=== PATIENT | female | born 1955 | race Caucasian/White ===

== ENCOUNTER 2023-04-10 19:57 | Inpatient (IN) | payer OTHER, SELFPAY ==
[2023-04-10] VITALS (19 sets, daily range): BP systolic 113–141; BP diastolic 59–88; PULSE 73–106; RESP 15–31; TEMP 36.2–36.8; O2SAT 80–97; BMI 40.5; BMI 37.4
--- NOTE | 2023-04-10 20:36 | ECG_ITS ---
[facility] Test Date: 2023-04-10 Pat Name: JHONATAN MONTOYA Department: Room: - Gender: Female Ophthalmic Photographer: : [id number] Requested By: SHAIKH LUCITA Order Number: [id number] Reading MD: KANDY MEDINA Measurements Intervals [place] Rate: 91 P: 74 [place]: 128 QRS: -50 QRSD: 104 T: 84 QT: 374 QTc: 423 Interpretive Statements 1100 Sinus rhythm [address] depression 7200 Abnormal left axis deviation 9150 abnormal ECG No previous ECG available for comparison Electronically Signed On 04-11-2023 5:43:07 EDT by KANDY MEDINA
[2023-04-10 21:07] LABS: ABG PCO2 33.8 mmHg (35.0-45.0); Base Excess ABG 1.7 mmol/L (-2.0-2.0); HCO3 ABG 25.2 mmol/L (22.0-26.0); Oxygen Saturation ABG 98.5 %; pH ABG 7.481 (7.350-7.450)
[2023-04-10 21:07] LABS: Basophils Absolute Auto 0.1 10^3/uL (0.0-0.1); Basophils Percent Auto 0.6 % (0.2-2.0); Hematocrit 49.2 % (36.0-48.0); Hemoglobin 16.8 g/dL (12.0-16.0); Immature Granulocytes Abs Auto 0.45 10^3/uL (0.00-0.03); Immature Granulocytes Pct Auto 3.9 % (0.0-0.5); Lymphocytes Absolute Auto 0.8 10^3/uL (1.2-3.8); Lymphocytes Percent Auto 7.2 % (20.5-60.0); Mean Corpuscular HGB Conc 34.1 g/dL (29.9-35.2); Mean Corpuscular Volume 87.9 fL (81.0-99.0); Mean Platelet Volume 8.8 fL (9.5-13.5); Monocytes Absolute Auto 0.7 10^3/uL (0.3-0.8); Monocytes Percent Auto 6.1 % (1.7-12.0); Neutrophils Absolute Auto 9.5 10^3/uL (1.4-6.5); Neutrophils Percent Auto 82.2 % (43.0-75.0); Platelet Count 457 10^3/uL (150-450); White Blood Count 11.6 10^3/uL (4.0-11.0)
[2023-04-10 21:08] LABS: Allen Test POSITIVE (POSITIVE); Fractionated Inspired Oxygen 80 %; Liters per Minute 40; O2 Mode VAPOTHERM; Puncture Site R. RADIAL
[2023-04-10] MEDS: IPRATROPIUM/ALBUTEROL SULFATE 3 ML AMPUL.NEB IH (21:15)
[2023-04-10] MEDS: METHYLPREDNISOLONE SOD SUCC PF 125 MG/2 ML VIAL IVP (21:18)
--- NOTE | 2023-04-10 21:29 | ED_ITS ---
HPI - General Adult General Chief complaint: Shortness of Breath/Dyspnea Stated complaint: SHORTNESS OF BREATH - PT IS COVID + Time Seen by Provider: 04/10/23 20:36 Source: patient Mode of arrival: walk-in History of Present Illness HPI narrative: cc -shortness of breath Patient with COPD who sees Dr Marianne zarate present with 8 days of cough, chest congestion and shortness of breath. She tested positive for Covid 5 days ago. She developed some chest pressure this afternoon. No fever at home. No GI or symptoms. She told me that she is vaccinated and boosted against Covid but has never contracted it before. Her PCP is Dr Ohara. Related Data Home Medications Medication Instructions Recorded Confirmed albuterol sulfate 90 mcg/actuation inhalation 04/10/23 aerosol inhaler alendronate 35 mg tablet mg PO 04/10/23 amlodipine 5 mg tablet mg 04/10/23 baclofen 5 mg tablet mg 04/10/23 benzonatate 100 mg capsule mg PO 04/10/23 cholecalciferol (vitamin D3) 25 04/10/23 mcg (1,000 unit) tablet fluticasone fur. 200 mcg-umeclid inhalation 04/10/23 62.5 mcg-vilant 25 mcg inhalat.powder (Trelegy Ellipta) gabapentin 300 mg capsule mg 04/10/23 hydrochlorothiazide 25 mg tablet mg 04/10/23 levocetirizine 5 mg tablet mg 04/10/23 magnesium oxide 400 mg (241.3 mg mg 04/10/23 magnesium) tablet montelukast 10 mg tablet mg 04/10/23 omeprazole 20 mg capsule,delayed mg 04/10/23 release oxybutynin chloride 5 mg mg PO 04/10/23 tablet,extended release 24 hr paroxetine HCl 20 mg tablet mg PO 04/10/23 potassium chloride 20 mEq meq PO 04/10/23 tablet,extended release solifenacin 5 mg tablet mg PO 04/10/23 trazodone 50 mg tablet mg 04/10/23 Allergies Allergy/AdvReac Type Severity Reaction Status Date / Time No Known Drug Allergies Allergy Verified 04/10/23 20:12 [facility] Medical History (Updated 04/10/23 @ 21:47 by Chau Burk) Social History Smoking status: Never smoker Exam Narrative Exam Narrative: Nurses notes and vital signs reviewed and patient is not hypoxic. afebrile General: Well-appearing and in no apparent distress. Skin: Warm, dry, no pallor noted. Head: Normocephalic, atraumatic. Neck: Supple, non-tender. Eye: Pupils are equal, round and EOMI. No scleral icterus. Ears, Nose, Mouth, and Throat: Oral mucosa is moist Cardiovascular: Regular Rate and Rhythm without murmur, gallop or rub. Respiratory: Accessory muscle use, sitting up, exertional dyspnea, mild respiratory distress. Lungs with rales and rhonchi throughout and apical expiratory wheezes. Chest Wall: no tenderness, crepitus or subcutaneous emphysema Musculoskeletal: normal ROM, no calf or popliteal tenderness, no lower extremity edema/swelling GI: Abdomen is soft, non-distended. Normal bowel sounds. No tenderness to palpation. No rebound, guarding, or rigidity noted. Neurological: A&O x4. No cranial nerve dysfunction observed. No truncal ataxia. Moves all extremities. Sensation intact. Psychiatric: Cooperative and interactive. Normal mood and affect. Constitutional Vital Signs - 24 hr 04/10/23 20:03 04/10/23 20:23 04/10/23 20:05 Temperature 98.2 F Pulse Rate Pulse Rate [Monitor Left] 90 Respiratory Rate 24 Blood Pressure 137/88 H Blood Pressure [Left Arm] 137/88 H Pulse Oximetry 89 L 89 L Oxygen Delivery Method Room Air Room Air 04/10/23 20:29 04/10/23 20:30 04/10/23 20:40 Temperature Pulse Rate Pulse Rate [Monitor Left] Respiratory Rate Blood Pressure Blood Pressure [Left Arm] Pulse Oximetry 80 L 81 L 89 L Oxygen Delivery Method 04/10/23 20:50 04/10/23 21:00 04/10/23 21:04 Temperature Pulse Rate 106 H 97 H Pulse Rate [Monitor Left] Respiratory Rate 23 Blood Pressure 127/77 H Blood Pressure [Left Arm] Pulse Oximetry 92 L 97 95 Oxygen Delivery Method 04/10/23 21:04 04/10/23 21:04 04/10/23 21:04 Temperature Pulse Rate 99 H 95 H 91 H Pulse Rate [Monitor Left] Respiratory Rate 31 H 27 H 29 H Blood Pressure 127/77 H 127/77 H Blood Pressure [Left Arm] Pulse Oximetry 93 L 96 90 L Oxygen Delivery Method Course Vital Signs Vital signs: Vital Signs Temperature 98.2 F 04/10/23 20:03 Pulse Rate 90 04/10/23 20:03 Respiratory Rate 24 04/10/23 20:03 Blood Pressure 137/88 H 04/10/23 20:03 Pulse Oximetry 89 L 04/10/23 20:03 Oxygen Delivery Method Room Air 04/10/23 20:03 Temperature 98.2 F 04/10/23 20:03 Pulse Rate 91 H 04/10/23 21:04 Respiratory Rate 29 H 04/10/23 21:04 Blood Pressure 127/77 H 04/10/23 21:04 Pulse Oximetry 90 L 04/10/23 21:04 Oxygen Delivery Method Room Air 04/10/23 20:23 Medical Decision Making MDM Narrative Medical decision making narrative: Patient was placed on nuclear monitoring technician and EKG obtained. Blood drawn and sent for evaluation. I asked respiratory therapy to place patient on Vapotherm. Chest x- ray was obtained. Blood work was relatively unremarkable. EKG did not show any ST elevation or deep ischemic changes requiring immediate cardiac intervention. Chest x-rays shows some atelectasis without any focal infiltrate. ABG does not reveal acute CO2 retention. Due to the patient's increased oxygen requirements I recommended the patient be admitted for further treatment. I spoke with the on-call tell hospitalist, Dr. Rueda, who agreed to admit this patient. The patient's primary care provider is Dr. Ohara but Dr. Zepeda is on-call and therefore will be the admitting physician. Patient informed of results and need for admission and is agreeable. Lab Data Lab results reviewed: Yes I reviewed the patient's lab results Labs: Lab Results 04/10/23 04/10/23 Range/Units 20:45 21:00 WBC 11.6 H (4.0-11.0) 10^3/uL RBC 5.60 H (4.20-5.40) 10^6/uL Hgb 16.8 H (12.0-16.0) g/dL Hct 49.2 H (36.0-48.0) % MCV 87.9 (81.0-99.0) fL MCH 30.0 (26.7-34.0) pg MCHC 34.1 (29.9-35.2) g/dL RDW 12.0 (11.0-15.0) % Plt Count 457 H (150-450) 10^3/uL MPV 8.8 L (9.5-13.5) fL Neut % (Auto) 82.2 H (43.0-75.0) % Lymph % (Auto) 7.2 L (20.5-60.0) % Linn % (Auto) 6.1 (1.7-12.0) % Eos % (Auto) 0.0 L (0.9-7.0) % Baso % (Auto) 0.6 (0.2-2.0) % Neut # (Auto) 9.5 H (1.4-6.5) 10^3/uL Lymph # (Auto) 0.8 L (1.2-3.8) 10^3/uL Linn # (Auto) 0.7 (0.3-0.8) 10^3/uL Eos # (Auto) 0.0 (0.0-0.7) 10^3/uL Baso # (Auto) 0.1 (0.0-0.1) 10^3/uL Abs Immat Gran (auto) 0.45 H (0.00-0.03) 10^3/uL Imm/Tot Granulo (auto) 3.9 H (0.0-0.5) % Puncture Site R. radial ABG pH 7.481 H (7.350-7.450) ABG pCO2 33.8 L (35.0-45.0) mmHg ABG pO2 106.0 H (80.0-100.0) mmHg ABG HCO3 25.2 (22.0-26.0) mmol/L ABG O2 Saturation 98.5 % ABG Base Excess 1.7 (-2.0-2.0) mmol/L Hardy Test Positive (POSITIVE) O2 Liters/Min 40 FiO2 80 % Sodium 136 (136-145) mmol/L Potassium 3.7 (3.5-5.1) mmol/L Chloride 97 L (98-107) mmol/L Carbon Dioxide 24.5 (21.0-32.0) mmol/L Anion Gap 18.2 BUN 38.0 H (7.0-18.0) mg/dL Creatinine 1.53 H (0.55-1.02) mg/dL Est GFR ( Amer) 41 L (>=60) Est GFR (Non-Af Amer) 34 L (>=60) BUN/Creatinine Ratio 24.8 Glucose 176 H (74-106) mg/dL Calcium 9.1 (8.5-10.1) mg/dL Total Bilirubin 0.5 (0.2-1.0) mg/dL AST 20 (15-37) U/L ALT 28 (14-59) U/L Alkaline Phosphatase 91 (46-116) U/L Troponin I High Sens 16.0 (4.0-51.3) pg/mL NT-Pro-B Natriuret Pep 236.0 (<=900.0) pg/mL Total Protein 8.2 (6.4-8.2) g/dL Albumin 3.9 (3.4-5.0) g/dL Globulin 4.3 g/dL Albumin/Globulin Ratio 0.9 ECG Data Attestation: ?I have reviewed the pertinent ECG results. Interpretation: EKG interpretation: Emergency Department physician interpretation. Normal sinus rhythm at 91bpm. leftward axis, nonspecific ST-T wave changes without ST segment elevation or deep depression. Discharge Plan Discharge Chief Complaint: Shortness of Breath/Dyspnea Clinical Impression: COVID-19, Acute infective exacerbation of chronic obstructive airway disease, Hypoxia Patient Disposition: Admitted As Inpatient Time of Disposition Decision: 21:46 Condition: Fair
--- NOTE | 2023-04-10 21:30 | XR_ITS ---
[address] [address] Patient Name: JHONATAN MONTOYA MRN: [id number] date: 1955 Sex: F Assigned Patient Location: ER Current Patient Location: ED.MAIN Accession/Order Number: [id number] Exam Date: 04/10/2023 21:30 Report Date: 04/10/2023 22:26 At the request of: BUZZ GIBBONS Procedure: XR chest 1V EXAMINATION: XR chest 1V HISTORY: Dyspnea, Covid positive and productive cough COMPARISON: Chest x-rays 02/22/2023 TECHNIQUE: Portable chest FINDINGS: The lung parenchyma is free of consolidation or infiltrate. No pneumothorax or pleural effusion. The cardiac, mediastinal and hilar contours are normal. The visualized osseous structures exhibit no gross abnormality. IMPRESSION: No acute cardiopulmonary abnormality. Electronically authenticated by: BRITTANY GALDAMEZ Date: 04/10/2023 22:26
[2023-04-10 21:31] LABS: Alanine Aminotransferase 28 U/L (14-59); Albumin Globulin Ratio 0.9; Albumin Level 3.9 g/dL (3.4-5.0); Alkaline Phosphatase 91 U/L (46-116); Anion Gap 18.2; Aspartate Amino Transferase 20 U/L (15-37); BUN Creatinine Ratio 24.8; Bilirubin Total 0.5 mg/dL (0.2-1.0); Calcium 9.1 mg/dL (8.5-10.1); Carbon Dioxide 24.5 mmol/L (21.0-32.0); Chloride 97 mmol/L (98-107); Estimated GFR (African America 41 (>=60); Estimated GFR (Non-African Ame 34 (>=60); Globulin 4.3 g/dL; Glucose 176 mg/dL (74-106); Potassium 3.7 mmol/L (3.5-5.1); Sodium 136 mmol/L (136-145); Total Protein 8.2 g/dL (6.4-8.2)
[2023-04-10 23:09] LABS: SARS-CoV-2 Ag Negative (NEGATIVE)
[2023-04-11] VITALS (20 sets, daily range): BP systolic 156–163; BP diastolic 76–84; PULSE 60–87; RESP 18–20; TEMP 36.2–36.8; O2SAT 90–93
--- NOTE | 2023-04-11 01:55 | P.PN_ITS ---
Progress Note: Subjective Subjective Interval history: PAtient had onset of dyspnea 9 days ago. 7 days ago tested + for CoVID and completed Paxlovid plus erythromycin and was on prednisone when increased work of breathing in last few days prompted ED visit today where she was found to have saturations of 90% in ED with a normal ABG. She is a COPD patient known to Dr. Izaguirre for pulmonary as well as Dr. Geller for PCP. She is not on home O2 but required it this evening. When I exam patient she is telling me she has improved from initial o2/nebulizer therapy in ED however appears with increased work of breathing. In addition to COPD, she has a hx of HTN for which she takes HCTZ and Amlodopine. Exam Constitutional Vital Signs - 24 hr 04/10/23 20:03 04/10/23 20:23 04/10/23 20:05 Temperature 98.2 F Pulse Rate Pulse Rate [Monitor Left] 90 Respiratory Rate 24 Blood Pressure 137/88 H Blood Pressure [Left Arm] 137/88 H Pulse Oximetry 89 L 89 L Oxygen Delivery Method Room Air Room Air Oxygen Delivery Flow Rate Fraction of Inspired Oxygen 04/10/23 20:29 04/10/23 20:30 04/10/23 20:40 Temperature Pulse Rate Pulse Rate [Monitor Left] Respiratory Rate Blood Pressure Blood Pressure [Left Arm] Pulse Oximetry 80 L 81 L 89 L Oxygen Delivery Method Oxygen Delivery Flow Rate Fraction of Inspired Oxygen 04/10/23 20:50 04/10/23 21:00 04/10/23 21:04 Temperature Pulse Rate 106 H 97 H Pulse Rate [Monitor Left] Respiratory Rate 23 Blood Pressure 127/77 H Blood Pressure [Left Arm] Pulse Oximetry 92 L 97 95 Oxygen Delivery Method Oxygen Delivery Flow Rate Fraction of Inspired Oxygen 04/10/23 21:04 04/10/23 21:04 04/10/23 21:04 Temperature Pulse Rate 99 H 95 H 91 H Pulse Rate [Monitor Left] Respiratory Rate 31 H 27 H 29 H Blood Pressure 127/77 H 127/77 H Blood Pressure [Left Arm] Pulse Oximetry 93 L 96 90 L Oxygen Delivery Method Oxygen Delivery Flow Rate Fraction of Inspired Oxygen 04/10/23 21:15 04/10/23 20:45 04/10/23 21:31 Temperature Pulse Rate 85 Pulse Rate [Monitor Left] 89 Respiratory Rate 28 H 22 Blood Pressure 124/59 H Blood Pressure [Left Arm] Pulse Oximetry 92 L 93 L 89 L Oxygen Delivery Method Vapotherm Vapotherm Oxygen Delivery Flow Rate 40 40 Fraction of Inspired Oxygen 70 80 04/10/23 22:01 04/10/23 22:01 04/10/23 22:31 Temperature Pulse Rate 93 H 86 79 Pulse Rate [Monitor Left] Respiratory Rate Blood Pressure 117/77 117/77 113/73 Blood Pressure [Left Arm] Pulse Oximetry 86 L 88 L 88 L Oxygen Delivery Method Oxygen Delivery Flow Rate Fraction of Inspired Oxygen 04/10/23 22:31 04/10/23 23:01 04/10/23 23:10 Temperature Pulse Rate 89 84 Pulse Rate [Monitor Left] Respiratory Rate 15 21 Blood Pressure 113/73 Blood Pressure [Left Arm] Pulse Oximetry 91 L Oxygen Delivery Method Oxygen Delivery Flow Rate Fraction of Inspired Oxygen 04/10/23 23:12 04/10/23 23:34 04/10/23 23:34 Temperature 97.2 F L Pulse Rate 73 Pulse Rate [Monitor Left] 89 Respiratory Rate 22 26 H 26 H Blood Pressure Blood Pressure [Left Arm] 141/84 H Pulse Oximetry 91 L 94 L Oxygen Delivery Method Vapotherm Vapotherm Oxygen Delivery Flow Rate 40 Fraction of Inspired Oxygen 04/11/23 00:01 Temperature Pulse Rate 77 Pulse Rate [Monitor Left] Respiratory Rate Blood Pressure Blood Pressure [Left Arm] Pulse Oximetry Oxygen Delivery Method Oxygen Delivery Flow Rate Fraction of Inspired Oxygen Common normals: oriented x3 General appearance: in distress (mild distress) Chest Chest: other (accessory muscle use, shortened sentences when answering my questions) Respiratory Effort & inspection: tachypneic, respiratory distress (mild), labored and other (wheezes in bases) Cardio Rate: tachycardic Extremity Common normals: normal to inspection Neuro Common normals: oriented x3 Progress Note: Objective Labs Labs: Short CBC 04/10/23 Range/Units 20:45 WBC 11.6 H (4.0-11.0) 10^3/uL Hgb 16.8 H (12.0-16.0) g/dL Hct 49.2 H (36.0-48.0) % Plt Count 457 H (150-450) 10^3/uL BMP 04/10/23 20:45 Sodium 136 Potassium 3.7 Chloride 97 L Carbon Dioxide 24.5 BUN 38.0 H Creatinine 1.53 H Glucose 176 H Calcium 9.1 Liver Function 04/10/23 Range/Units 20:45 Total Bilirubin 0.5 (0.2-1.0) mg/dL AST 20 (15-37) U/L ALT 28 (14-59) U/L Alkaline Phosphatase 91 (46-116) U/L Albumin 3.9 (3.4-5.0) g/dL ABG Attestation: I have reviewed the pertinent ABG results. Pulse Oximetry Attestation: I have reviewed the pertinent pulse oximetry results. ECG Attestation: ?I have reviewed the pertinent ECG results. Progress Note: A&P Assessment and Plan (1) COVID-19: Assessment and Plan: patient has completed antivirals and overall chest x-ray picture does not have pneumonic process but will continue to recheck for evolving changes. (2) Hypoxia: Assessment and Plan: considering increased work of breathing with ABG reassuring, would use non invasive bipap therapy in addition to nebulizer and steriod treatments. (3) Acute infective exacerbation of chronic obstructive airway disease: Assessment and Plan: Leukocytosis is noted however no specific focal pneumonic process and at this time would not initiate sepsis/abx treatment. Plan Continue aggressive respiratory therapy and consult pulm in AM. DVT and GI prophylaxis and will limit diet to water for now. AM labs and xray for changes but pulmonary therapy with non invasive o2 for treatment overnight. Fall Risk Details Pastor Fall Scale Risk Level: Low Fall Risk Current Medications: Current Medications Acetaminophen (Acetaminophen 325 Mg Tablet) 650 mg PO Q4H PRN PRN Reason: Pain Enoxaparin Sodium (Enoxaparin Sodium 100 Mg/Ml Syringe) 100 mg SUBQ Q12H LADY Sodium Chloride (Sodium Chloride 0.9% 1,000 Ml) 1,000 mls @ 100 mls/hr IV .Q10H LADY Methylprednisolone Sodium Succinate (Methylprednisolone Sod Succ Pf 125 Mg/2 Ml Vial) 125 mg IVP Q6H LADY Ondansetron HCl (Ondansetron Pf 4 Mg/2 Ml Vial) 4 mg IV Q6H PRN PRN Reason: Nausea And Vomiting Polyethylene Glycol (Polyethylene Glycol 3350 17 Gm Powder Packet) 17 gm PO QD PRN PRN Reason: Constipation Senna (Sennosides 8.6 Mg Tablet) 8.6 mg PO QD PRN PRN Reason: Constipation Time Spent With Patient Time: Total time spent is greater than 50% in coordination of care (as documented) at patient's floor/unit and/or counseling patient: Time with patient: 25 - 35 minutes Telemedicine Attestation Telemedicine Attestation I conducted this encounter from [[facility]] via secure live, [id number] video conference with the patient, CHARGE TEST-CHARGES located at [facility] with bedside nurse Prior to the interview, the risks and benefits of telemedicine were discussed with the patient and verbal consent was obtained.
[2023-04-11] MEDS: ENOXAPARIN SODIUM 100 MG/ML SYRINGE SUBQ ×2 (01:59→22:43)
[2023-04-11] MEDS: METHYLPREDNISOLONE SOD SUCC PF 125 MG/2 ML VIAL IVP ×4 (01:59→22:42)
[2023-04-11] MEDS: 0.9 % SODIUM CHLORIDE 1,000 ML 100 ML IV ×2 (02:00→15:22)
[2023-04-11 04:47] LABS: Basophils Percent Auto 0.3 % (0.2-2.0); Hematocrit 44.6 % (36.0-48.0); Immature Granulocytes Abs Auto 0.28 10^3/uL (0.00-0.03); Immature Granulocytes Pct Auto 2.4 % (0.0-0.5); Lymphocytes Absolute Auto 0.7 10^3/uL (1.2-3.8); Lymphocytes Percent Auto 6.1 % (20.5-60.0); Mean Corpuscular HGB Conc 33.6 g/dL (29.9-35.2); Mean Corpuscular Hemoglobin 29.7 pg (26.7-34.0); Mean Corpuscular Volume 88.3 fL (81.0-99.0); Mean Platelet Volume 8.9 fL (9.5-13.5); Monocytes Absolute Auto 0.2 10^3/uL (0.3-0.8); Monocytes Percent Auto 1.8 % (1.7-12.0); Neutrophils Absolute Auto 10.3 10^3/uL (1.4-6.5); Neutrophils Percent Auto 89.4 % (43.0-75.0); Platelet Count 356 10^3/uL (150-450); Red Blood Count 5.05 10^6/uL (4.20-5.40); White Blood Count 11.6 10^3/uL (4.0-11.0)
[2023-04-11 05:13] LABS: Alanine Aminotransferase 27 U/L (14-59); Albumin Globulin Ratio 0.9; Albumin Level 3.4 g/dL (3.4-5.0); Alkaline Phosphatase 83 U/L (46-116); Anion Gap 16.3; Aspartate Amino Transferase 17 U/L (15-37); BUN Creatinine Ratio 32.6; Bilirubin Total 0.4 mg/dL (0.2-1.0); Calcium 8.6 mg/dL (8.5-10.1); Carbon Dioxide 25.3 mmol/L (21.0-32.0); Chloride 100 mmol/L (98-107); Estimated GFR (African America 49 (>=60); Estimated GFR (Non-African Ame 40 (>=60); Globulin 3.7 g/dL; Glucose 221 mg/dL (74-106); Magnesium 2.3 mg/dL (1.8-2.4); Potassium 3.6 mmol/L (3.5-5.1); Sodium 138 mmol/L (136-145); Total Protein 7.1 g/dL (6.4-8.2)
[2023-04-11] MEDS: INSULIN ASPART 300 UNIT/3 ML PEN SUBQ ×2 (08:27→17:01)
--- NOTE | 2023-04-11 09:03 | CT_ITS ---
The [address] [address] Patient Name: JHONATAN MONTOYA MRN: [id number] date: 1955 Sex: F Assigned Patient Location: MS Current Patient Location: Accession/Order Number: [id number] Exam Date: 04/11/2023 10:30 Report Date: 04/11/2023 11:18 At the request of: KANDY MEDINA Procedure: CT angio chest CT angio chest, 04/11/2023 10:30 AM EDT INDICATION: Severe hypoxia, covid COMPARISON: Radiograph the chest 04/10/2023, CT angiography of the chest 11/26/2017. TECHNIQUE: Iodinated contrast was administered intravenously by rapid injection, with further multislice axial sections acquired in the pulmonary arterial phase from the thoracic inlet to the upper abdomen. Coronal maximal intensity projection and 3-D virtual images were created for comprehensive analysis and diagnosis of the regional circulation. Dose reduction techniques were achieved by using automated exposure control and/or adjustment of mA and/or kV according to patient size and/or use of iterative reconstruction technique. FINDINGS: Thyroid gland is unremarkable. Cardiomegaly. RV/LV ratio normal. No pericardial effusion. No aortic aneurysm or dissection. The great vessels are unremarkable. No filling defect within the pulmonary arteries. No mediastinal or axillary lymphadenopathy. Prominent right hilar lymph nodes that do not meet size criteria for pathologic enlargement. Diffuse bronchial wall thickening with subsegmental atelectasis and streaky areas of consolidation bilaterally. Consolidation within the right middle and left lower lobe. No pleural effusion. Small calcified granulomas bilaterally. New 1- 2 mm nodule right upper lobe (5, 32) Visualized portions of the upper abdomen are grossly unremarkable. No acute fracture or dislocation. IMPRESSION: 1. No pulmonary embolism. 2. Diffuse bronchial wall thickening with areas of streaky opacity bilaterally in multi lobar consolidation. This constellation of findings can represent viral pneumonia in the appropriate clinical setting. Electronically authenticated by: KATHY ADEN Date: 04/11/2023 11:18
--- NOTE | 2023-04-11 09:43 | P.HP_ITS ---
H&P: HPI History of Present Illness Chief complaint: SHORTNESS OF BREATH - PT IS COVID + Narrative: Unfortunately is not set up for you to respond back patient with cold symptoms starting about 10 days ago, 7 days ago tested positive for COVID-19, treated with Paxlovid, had increasing shortness of breath and presented to the emergency room and found to have severe hypoxia. Patient was placed on Vapotherm. Her oxygen levels are improved but she is on a high dose of Vapotherm at the present time [facility] Medical History (Updated 04/10/23 @ 21:47 by Chau Burk) Social History Smoking status: Never smoker Do you think of yourself as: straight/heterosexual Gender Identity: female Meds Home Medications and Allergies Home Medications Medication Instructions Recorded Confirmed Type albuterol sulfate 90 mcg/actuation 2 puff inhalation Q4H PRN 04/10/23 04/11/23 History aerosol inhaler shortness of breath or wheezing alendronate 35 mg tablet 35 mg PO .ONCE A WEEK osteopenia 04/10/23 04/11/23 History amlodipine 5 mg tablet 5 mg PO DAILY HTN 04/10/23 04/11/23 History baclofen 5 mg tablet 5 mg PO .THREE TIMES DAILY 04/10/23 04/11/23 History benzonatate 100 mg capsule 100 mg PO .q12 PRN cough 04/10/23 04/11/23 History cholecalciferol (vitamin D3) 25 25 mcg PO DAILY 04/10/23 04/11/23 History mcg (1,000 unit) tablet fluticasone fur. 200 mcg-umeclid 1 inh inhalation Q24H COPD 04/10/23 04/11/23 History 62.5 mcg-vilant 25 mcg inhalat.powder (Trelegy Ellipta) gabapentin 300 mg capsule 300 mg PO BID 04/10/23 04/11/23 History hydrochlorothiazide 25 mg tablet 25 mg PO DAILY 04/10/23 04/11/23 History magnesium oxide 400 mg (241.3 mg 400 mg PO DAILY 04/10/23 04/11/23 History magnesium) tablet montelukast 10 mg tablet 10 mg PO DAILY 04/10/23 04/11/23 History omeprazole 20 mg capsule,delayed 20 mg PO DAILY 04/10/23 04/11/23 History release paroxetine HCl 20 mg tablet 20 mg PO .qhs 04/10/23 04/11/23 History potassium chloride 20 mEq 20 meq PO .TWICE A DAY 04/10/23 04/11/23 History tablet,extended release solifenacin 5 mg tablet 5 mg PO DAILY 04/10/23 04/11/23 History trazodone 50 mg tablet 50 mg PO .qhs 04/10/23 04/11/23 History levocetirizine 5 mg tablet 5 mg PO QPM 04/11/23 04/11/23 History Allergies Allergy/AdvReac Type Severity Reaction Status Date / Time No Known Drug Allergies Allergy Verified 04/10/23 20:12 Exam Constitutional Vital Signs - 24 hr 04/10/23 20:03 04/10/23 20:23 04/10/23 20:05 Temperature 98.2 F Pulse Rate Pulse Rate [Monitor Left] 90 Respiratory Rate 24 Blood Pressure 137/88 H Blood Pressure [Left Arm] 137/88 H Pulse Oximetry 89 L 89 L Oxygen Delivery Method Room Air Room Air Oxygen Delivery Flow Rate Fraction of Inspired Oxygen 04/10/23 20:29 04/10/23 20:30 04/10/23 20:40 Temperature Pulse Rate Pulse Rate [Monitor Left] Respiratory Rate Blood Pressure Blood Pressure [Left Arm] Pulse Oximetry 80 L 81 L 89 L Oxygen Delivery Method Oxygen Delivery Flow Rate Fraction of Inspired Oxygen 04/10/23 20:50 04/10/23 21:00 04/10/23 21:04 Temperature Pulse Rate 106 H 97 H Pulse Rate [Monitor Left] Respiratory Rate 23 Blood Pressure 127/77 H Blood Pressure [Left Arm] Pulse Oximetry 92 L 97 95 Oxygen Delivery Method Oxygen Delivery Flow Rate Fraction of Inspired Oxygen 04/10/23 21:04 04/10/23 21:04 04/10/23 21:04 Temperature Pulse Rate 99 H 95 H 91 H Pulse Rate [Monitor Left] Respiratory Rate 31 H 27 H 29 H Blood Pressure 127/77 H 127/77 H Blood Pressure [Left Arm] Pulse Oximetry 93 L 96 90 L Oxygen Delivery Method Oxygen Delivery Flow Rate Fraction of Inspired Oxygen 04/10/23 21:15 04/10/23 20:45 04/10/23 21:31 Temperature Pulse Rate 85 Pulse Rate [Monitor Left] 89 Respiratory Rate 28 H 22 Blood Pressure 124/59 H Blood Pressure [Left Arm] Pulse Oximetry 92 L 93 L 89 L Oxygen Delivery Method Vapotherm Vapotherm Oxygen Delivery Flow Rate 40 40 Fraction of Inspired Oxygen 70 80 04/10/23 22:01 04/10/23 22:01 04/10/23 22:31 Temperature Pulse Rate 93 H 86 79 Pulse Rate [Monitor Left] Respiratory Rate Blood Pressure 117/77 117/77 113/73 Blood Pressure [Left Arm] Pulse Oximetry 86 L 88 L 88 L Oxygen Delivery Method Oxygen Delivery Flow Rate Fraction of Inspired Oxygen 04/10/23 22:31 04/10/23 23:01 04/10/23 23:10 Temperature Pulse Rate 89 84 Pulse Rate [Monitor Left] Respiratory Rate 15 21 Blood Pressure 113/73 Blood Pressure [Left Arm] Pulse Oximetry 91 L Oxygen Delivery Method Oxygen Delivery Flow Rate Fraction of Inspired Oxygen 04/10/23 23:12 04/10/23 23:34 04/10/23 23:34 Temperature 97.2 F L Pulse Rate 73 Pulse Rate [Monitor Left] 89 Respiratory Rate 22 26 H 26 H Blood Pressure Blood Pressure [Left Arm] 141/84 H Pulse Oximetry 91 L 94 L Oxygen Delivery Method Vapotherm Vapotherm Oxygen Delivery Flow Rate 40 Fraction of Inspired Oxygen 04/11/23 00:01 04/10/23 23:34 04/11/23 02:02 Temperature Pulse Rate 77 70 Pulse Rate [Monitor Left] 77 Respiratory Rate 26 H Blood Pressure Blood Pressure [Left Arm] Pulse Oximetry 94 L Oxygen Delivery Method Vapotherm Oxygen Delivery Flow Rate 40 Fraction of Inspired Oxygen 70 04/11/23 06:00 04/11/23 04:17 04/11/23 05:56 Temperature 97.1 F L 97.1 F L Pulse Rate 71 71 Pulse Rate [Monitor Left] Respiratory Rate 18 18 Blood Pressure Blood Pressure [Left Arm] 156/81 H 156/81 H Pulse Oximetry 91 L 91 L 91 L Oxygen Delivery Method Vapotherm Vapotherm Oxygen Delivery Flow Rate 40 40 40 Fraction of Inspired Oxygen 70 70 70 04/11/23 08:00 Temperature Pulse Rate 60 Pulse Rate [Monitor Left] Respiratory Rate Blood Pressure Blood Pressure [Left Arm] Pulse Oximetry Oxygen Delivery Method Oxygen Delivery Flow Rate Fraction of Inspired Oxygen HENNY Common normals: normocephalic and moist oral mucous membranes Lymph Lymphatic: no lymphadenopathy noted Chest Common normals: inspection of chest normal Respiratory Effort & inspection: tachypneic and respiratory distress; not able to speak in complete sentences Auscultation: rhonchi Cardio Common normals: irregular rhythm (Tachycardia) GI Common normals: Normal to inspection, nondistended, normoactive bowel sounds present, soft to palpation, non-tender and no hepatosplenomegaly Neuro Common normals: CN's II-XII intact bilaterally Psych Common normals: mental status grossly normal Results Labs Labs: Short CBC 04/10/23 04/11/23 Range/Units 20:45 04:25 WBC 11.6 H 11.6 H (4.0-11.0) 10^3/uL Hgb 16.8 H 15.0 (12.0-16.0) g/dL Hct 49.2 H 44.6 (36.0-48.0) % Plt Count 457 H 356 (150-450) 10^3/uL BMP 04/10/23 04/11/23 20:45 04:25 Sodium 136 138 Potassium 3.7 3.6 Chloride 97 L 100 Carbon Dioxide 24.5 25.3 BUN 38.0 H 43.0 H Creatinine 1.53 H 1.32 H Glucose 176 H 221 H Calcium 9.1 8.6 Liver Function 04/10/23 04/11/23 Range/Units 20:45 04:25 Total Bilirubin 0.5 0.4 (0.2-1.0) mg/dL AST 20 17 (15-37) U/L ALT 28 27 (14-59) U/L Alkaline Phosphatase 91 83 (46-116) U/L Albumin 3.9 3.4 (3.4-5.0) g/dL ABG ABG results: 04/10/23 21:00 ABG pH 7.481 H ABG pCO2 33.8 L ABG pO2 106.0 H ABG HCO3 25.2 ABG O2 Saturation 98.5 ABG Base Excess 1.7 Assessment and Plan Assessment and Plan (1) COVID-19: (2) Hypoxia: (3) Acute infective exacerbation of chronic obstructive airway disease: Plan Sinus tachycardia, respiratory distress, acute hypoxia secondary to residual effect of COVID-19 complicating acute exacerbation of COPD and asthma-has already been treated with Paxlovid, hold off on further antivirals as she is 10 days out from onset of symptoms, continue with Vapotherm, continue with steroids, and antibiotics, add high-dose Zyrtec and Pepcid. Consult pulmonology Hyperglycemia likely complicated by steroids-Insulin sliding scale Hypertension-continue with home medications GERD-IV Pepcid Morbid obesity-diet management Thrombocytopenia likely secondary to the above-monitor daily Acute kidney injury secondary to the above-monitor daily Medical treatment lasting more than 48 hours-we will need inpatient status.
--- NOTE | 2023-04-11 10:51 | CM.NOTE ---
Rounds made with Dr. Zepeda. Plan to Consult Pulmonology and start on accu checks with insulin titration due to steroids increasing the blood sugars. Diana verbalizes understanding. Currently Diana uses no oxygen at home. Dr. Zepeda discussed potential need for oxygen at discharge. Diana was in agreement and had no preference as to what DME company was used. Currently Diana lives with a son who helps as needed. She also uses a walker as she alot of pain in the hip. No plan for discharge today.
[2023-04-11 11:08] LABS: Glucometer 149 mg/dL (74-106)
[2023-04-11] MEDS: LEVOFLOXACIN IN DEXTROSE 5 % 750 MG/150 ML IV.SOLN 100 MG IV (11:15)
[2023-04-11] MEDS: FAMOTIDINE/PF 20 MG/2 ML VIAL IV (12:30)
[2023-04-11 14:23] LABS: SARS-CoV-2 NAA DETECTED (NOT DETECTE)
[2023-04-11] MEDS: IPRATROPIUM/ALBUTEROL SULFATE 3 ML AMPUL.NEB IH ×3 (15:00→23:25)
--- NOTE | 2023-04-11 15:20 | SWNOTE1 ---
SW met with pt to discuss dc needs. Pt lives at home with her son. Pt has a walker at home that she uses. Pt lives in 1 story home. Pt does not wear home oxygen, she is currently on vapotherm. Possible need for home 02, no preference for company. JAZMIN did review the IMM form with pt, no questions or concerns. Pt signed form. Original given to pt and copy placed in chart.
[2023-04-11 16:07] LABS: A. calcoaceticus-baumannii Cpx NOT DETECTED (NOT DETECTE); Bacteroides fragilis NOT DETECTED (NOT DETECTE); CTX-M NOT DETECTED (NOT DETECTE); Candida albicans NOT DETECTED (NOT DETECTE); Candida auris NOT DETECTED (NOT DETECTE); Candida glabrata NOT DETECTED (NOT DETECTE); Candida krusei NOT DETECTED (NOT DETECTE); Candida parapsilosis NOT DETECTED (NOT DETECTE); Candida tropicalis NOT DETECTED (NOT DETECTE); Cryptococcus neoformans/gattii NOT DETECTED (NOT DETECTE); Enterobacter cloacae complex NOT DETECTED (NOT DETECTE); Enterobacterales NOT DETECTED (NOT DETECTE); Enterococcus faecalis NOT DETECTED (NOT DETECTE); Enterococcus faecium NOT DETECTED (NOT DETECTE); Haemophilus influenzae NOT DETECTED (NOT DETECTE); IMP NOT DETECTED (NOT DETECTE); KPC NOT DETECTED (NOT DETECTE); Klebsiella aerogenes NOT DETECTED (NOT DETECTE); Klebsiella pneumoniae group NOT DETECTED (NOT DETECTE); Listeria monocytogenes NOT DETECTED (NOT DETECTE); NDM NOT DETECTED (NOT DETECTE); Neisseria meningitidis NOT DETECTED (NOT DETECTE); OXA-48-like NOT DETECTED (NOT DETECTE); Proteus spp. NOT DETECTED (NOT DETECTE); Pseudomonas aeruginosa NOT DETECTED (NOT DETECTE); Salmonella spp. NOT DETECTED (NOT DETECTE); Serratia marcescens NOT DETECTED (NOT DETECTE); Staphylococcus lugdunensis NOT DETECTED (NOT DETECTE); Stenotrophomonas maltophilia NOT DETECTED (NOT DETECTE); Streptococcus agalactiae NOT DETECTED (NOT DETECTE); Streptococcus pneumoniae NOT DETECTED (NOT DETECTE); Streptococcus pyogenes NOT DETECTED (NOT DETECTE); Streptococcus spp. NOT DETECTED (NOT DETECTE); VIM NOT DETECTED (NOT DETECTE); mcr-1 NOT DETECTED (NOT DETECTE); mecA/C NOT DETECTED (NOT DETECTE); mecA/C and MREJ (MRSA) NOT DETECTED (NOT DETECTE); vanA/B NOT DETECTED (NOT DETECTE)
[2023-04-11 16:13] LABS: Glucometer 175 mg/dL (74-106)
--- NOTE | 2023-04-11 17:10 | P.PLCN_ITS ---
History of Present Illness History of Present Illness Requesting physician: Nick Zepeda Chief complaint: SHORTNESS OF BREATH - PT IS COVID + Narrative: 67yo female whom I see outpatient presented to [facility] with dyspnea. She was feeling poorly for several days, was tested for COVID-19 and was positive. She contacted her PCP who Rx'd Paxlovid, dexamethasone, Z-Etienne, and Tessalon. She felt a little better for a few days but then worsened. She noticed her SpO2 gradually dropping until it hit the low 80's on RA. She does not wear home O2. She presented to the ER and was found to be hypoxic with SpO2 ~80%. She was started on supplemental O2. Transferred to the floor. SpO2 gradually worsened to the point she required Vapotherm, which she is now at FiO2 70%. CTA done today (04/11/2023) showed no pulmonary emboli, and patchy infiltrates and consolidations consistent with COVID-19. She states her breathing is okay at this time. She has not been proning. She states it is hard for her to eat because her mouth is sore. Discussed worse case scenario if her breathing were to get to the point she could , she stated she would be okay being intubated and going on a ventilator. Review of Systems ROS0 Status of ROS 10 or more systems reviewed and unremarkable except as noted in history and below Ears, nose, mouth, and throat Reports: throat pain and mouth pain Respiratory Reports: shortness of breath, cough, wheezing and chest congestion Endocrine Reports: fatigue [facility] Medical History (Updated 04/10/23 @ 21:47 by Chau Burk) Social History Smoking status: Never smoker Do you think of yourself as: straight/heterosexual Gender Identity: female Meds Home Medications and Allergies Home Medications Medication Instructions Recorded Confirmed Type albuterol sulfate 90 mcg/actuation 2 puff inhalation Q4H PRN 04/10/23 04/11/23 History aerosol inhaler shortness of breath or wheezing alendronate 35 mg tablet 35 mg PO .ONCE A WEEK osteopenia 04/10/23 04/11/23 History amlodipine 5 mg tablet 5 mg PO DAILY HTN 04/10/23 04/11/23 History baclofen 5 mg tablet 5 mg PO .THREE TIMES DAILY 04/10/23 04/11/23 History benzonatate 100 mg capsule 100 mg PO .q12 PRN cough 04/10/23 04/11/23 History cholecalciferol (vitamin D3) 25 25 mcg PO DAILY 04/10/23 04/11/23 History mcg (1,000 unit) tablet fluticasone fur. 200 mcg-umeclid 1 inh inhalation Q24H COPD 04/10/23 04/11/23 History 62.5 mcg-vilant 25 mcg inhalat.powder (Trelegy Ellipta) gabapentin 300 mg capsule 300 mg PO BID 04/10/23 04/11/23 History hydrochlorothiazide 25 mg tablet 25 mg PO DAILY 04/10/23 04/11/23 History magnesium oxide 400 mg (241.3 mg 400 mg PO DAILY 04/10/23 04/11/23 History magnesium) tablet montelukast 10 mg tablet 10 mg PO DAILY 04/10/23 04/11/23 History omeprazole 20 mg capsule,delayed 20 mg PO DAILY 04/10/23 04/11/23 History release paroxetine HCl 20 mg tablet 20 mg PO .qhs 04/10/23 04/11/23 History potassium chloride 20 mEq 20 meq PO .TWICE A DAY 04/10/23 04/11/23 History tablet,extended release solifenacin 5 mg tablet 5 mg PO DAILY 04/10/23 04/11/23 History trazodone 50 mg tablet 50 mg PO .qhs 04/10/23 04/11/23 History levocetirizine 5 mg tablet 5 mg PO QPM 04/11/23 04/11/23 History Allergies Allergy/AdvReac Type Severity Reaction Status Date / Time No Known Drug Allergies Allergy Verified 04/10/23 20:12 Exam Constitutional Vital Signs - 24 hr 04/10/23 20:03 04/10/23 20:23 04/10/23 20:05 Temperature 98.2 F Pulse Rate Pulse Rate [Monitor Left] 90 Respiratory Rate 24 Blood Pressure 137/88 H Blood Pressure [Left Arm] 137/88 H Pulse Oximetry 89 L 89 L Oxygen Delivery Method Room Air Room Air Oxygen Delivery Flow Rate Fraction of Inspired Oxygen 04/10/23 20:29 04/10/23 20:30 04/10/23 20:40 Temperature Pulse Rate Pulse Rate [Monitor Left] Respiratory Rate Blood Pressure Blood Pressure [Left Arm] Pulse Oximetry 80 L 81 L 89 L Oxygen Delivery Method Oxygen Delivery Flow Rate Fraction of Inspired Oxygen 04/10/23 20:50 04/10/23 21:00 04/10/23 21:04 Temperature Pulse Rate 106 H 97 H Pulse Rate [Monitor Left] Respiratory Rate 23 Blood Pressure 127/77 H Blood Pressure [Left Arm] Pulse Oximetry 92 L 97 95 Oxygen Delivery Method Oxygen Delivery Flow Rate Fraction of Inspired Oxygen 04/10/23 21:04 04/10/23 21:04 04/10/23 21:04 Temperature Pulse Rate 99 H 95 H 91 H Pulse Rate [Monitor Left] Respiratory Rate 31 H 27 H 29 H Blood Pressure 127/77 H 127/77 H Blood Pressure [Left Arm] Pulse Oximetry 93 L 96 90 L Oxygen Delivery Method Oxygen Delivery Flow Rate Fraction of Inspired Oxygen 04/10/23 21:15 04/10/23 20:45 04/10/23 21:31 Temperature Pulse Rate 85 Pulse Rate [Monitor Left] 89 Respiratory Rate 28 H 22 Blood Pressure 124/59 H Blood Pressure [Left Arm] Pulse Oximetry 92 L 93 L 89 L Oxygen Delivery Method Vapotherm Vapotherm Oxygen Delivery Flow Rate 40 40 Fraction of Inspired Oxygen 70 80 04/10/23 22:01 04/10/23 22:01 04/10/23 22:31 Temperature Pulse Rate 93 H 86 79 Pulse Rate [Monitor Left] Respiratory Rate Blood Pressure 117/77 117/77 113/73 Blood Pressure [Left Arm] Pulse Oximetry 86 L 88 L 88 L Oxygen Delivery Method Oxygen Delivery Flow Rate Fraction of Inspired Oxygen 04/10/23 22:31 04/10/23 23:01 04/10/23 23:10 Temperature Pulse Rate 89 84 Pulse Rate [Monitor Left] Respiratory Rate 15 21 Blood Pressure 113/73 Blood Pressure [Left Arm] Pulse Oximetry 91 L Oxygen Delivery Method Oxygen Delivery Flow Rate Fraction of Inspired Oxygen 04/10/23 23:12 04/10/23 23:34 04/10/23 23:34 Temperature 97.2 F L Pulse Rate 73 Pulse Rate [Monitor Left] 89 Respiratory Rate 22 26 H 26 H Blood Pressure Blood Pressure [Left Arm] 141/84 H Pulse Oximetry 91 L 94 L Oxygen Delivery Method Vapotherm Vapotherm Oxygen Delivery Flow Rate 40 Fraction of Inspired Oxygen 04/11/23 00:01 04/10/23 23:34 04/11/23 02:02 Temperature Pulse Rate 77 70 Pulse Rate [Monitor Left] 77 Respiratory Rate 26 H Blood Pressure Blood Pressure [Left Arm] Pulse Oximetry 94 L Oxygen Delivery Method Vapotherm Oxygen Delivery Flow Rate 40 Fraction of Inspired Oxygen 70 04/11/23 06:00 04/11/23 04:17 04/11/23 05:56 Temperature 97.1 F L 97.1 F L Pulse Rate 71 71 Pulse Rate [Monitor Left] Respiratory Rate 18 18 Blood Pressure Blood Pressure [Left Arm] 156/81 H 156/81 H Pulse Oximetry 91 L 91 L 91 L Oxygen Delivery Method Vapotherm Vapotherm Oxygen Delivery Flow Rate 40 40 40 Fraction of Inspired Oxygen 70 70 70 04/11/23 08:00 04/11/23 09:50 04/11/23 10:15 Temperature Pulse Rate 60 62 Pulse Rate [Monitor Left] Respiratory Rate 18 Blood Pressure Blood Pressure [Left Arm] Pulse Oximetry Oxygen Delivery Method Oxygen Delivery Flow Rate Fraction of Inspired Oxygen 04/11/23 11:56 04/11/23 13:48 04/11/23 13:58 Temperature 98.2 F Pulse Rate 60 61 61 Pulse Rate [Monitor Left] Respiratory Rate 19 Blood Pressure Blood Pressure [Left Arm] 163/76 H Pulse Oximetry 90 L Oxygen Delivery Method Vapotherm Oxygen Delivery Flow Rate Fraction of Inspired Oxygen 04/11/23 15:43 Temperature Pulse Rate 67 Pulse Rate [Monitor Left] Respiratory Rate Blood Pressure Blood Pressure [Left Arm] Pulse Oximetry Oxygen Delivery Method Oxygen Delivery Flow Rate Fraction of Inspired Oxygen Documenting provider has reviewed patient's vital signs: yes Common normals: no apparent distress General appearance: cooperative and comfortable HENMT Other: Wearing Vapotherm nasal cannula. Diffuse oral candidiasis on hard & soft palates, extending to buccal mucosa. Eye Common normals: PERRL Neck & C-Spine General: trachea midline Chest Common normals: inspection of chest normal Respiratory Other: Diminished breath sounds with diffuse crackles and rhonchi, consistent with a COVID-19 infection. Cardio Rate: regular rate Rhythm: regular rhythm GI Common normals: soft to palpation and non-tender Other: Obese Extremity Common normals: no clubbing, cyanosis or edema Neuro Common normals: moves all extremities and no focal motor deficits Psych Common normals: mental status grossly normal Attitude: calm (Pleasant) Results Laboratory Findings ABG, PT/INR, D-dimer: ABG ABG pH 7.481 (7.350-7.450) H 04/10/23 21:00 ABG pCO2 33.8 mmHg (35.0-45.0) L 04/10/23 21:00 ABG pO2 106.0 mmHg (80.0-100.0) H 04/10/23 21:00 ABG O2 Saturation 98.5 % 04/10/23 21:00 Abnormal lab findings: Abnormal Labs 04/10/23 04/10/23 04/10/23 20:45 21:00 22:00 WBC 11.6 H RBC 5.60 H Hgb 16.8 H Hct 49.2 H Plt Count 457 H MPV 8.8 L Neut % (Auto) 82.2 H Lymph % (Auto) 7.2 L Eos % (Auto) 0.0 L Neut # (Auto) 9.5 H Lymph # (Auto) 0.8 L Mellette # (Auto) Abs Immat Gran (auto) 0.45 H Imm/Tot Granulo (auto) 3.9 H ABG pH 7.481 H ABG pCO2 33.8 L ABG pO2 106.0 H Chloride 97 L BUN 38.0 H Creatinine 1.53 H Est GFR ( Amer) 41 L Est GFR (Non-Af Amer) 34 L Glucose 176 H SARS-CoV-2 RNA (KAYLEE) Detected A POC Glucose 04/11/23 04/11/23 04/11/23 04:25 11:05 16:03 WBC 11.6 H RBC Hgb Hct Plt Count MPV 8.9 L Neut % (Auto) 89.4 H Lymph % (Auto) 6.1 L Eos % (Auto) 0.0 L Neut # (Auto) 10.3 H Lymph # (Auto) 0.7 L Mellette # (Auto) 0.2 L Abs Immat Gran (auto) 0.28 H Imm/Tot Granulo (auto) 2.4 H ABG pH ABG pCO2 ABG pO2 Chloride BUN 43.0 H Creatinine 1.32 H Est GFR ( Amer) 49 L Est GFR (Non-Af Amer) 40 L Glucose 221 H SARS-CoV-2 RNA (KAYLEE) POC Glucose 149 H [address] scan - chest: report reviewed and image reviewed Additional studies: ABG reviewed Assessment and Plan Assessment and Plan (1) COVID-19: Assessment and Plan: 1. Acute viral pneumonia secondary to COVID-19. Initially diagnosed on 04/04/2023. Remains symptomatic and in fact worsening. COVID-19 PCR negative but antigen positive - I would consider the patient still positive with the antigen detected as it is possible the swab was not deep enough for an adequate PCR sampling. She was already on steroid + Paxlovid outpatient - some of this may be Paxlovid-rebound. Continue with supportive care at this time. Agree with Levaquin to treat any co-bacterial infection. 2. Acute exacerbation of COPD. COPD developed despite never smoking herself. On Tregy outpatient. Continue with bronchodilators, steroids. 3. Acute hypoxic respiratory failure. Secondary to #1 + #2. She is not on home O2. Now requiring Vapotherm at 70% FiO2. Instructed patient on importance of prone positioning. Intubation/ventilator if respiratory status worsens to that point. Continue a good pulmonary toilet. 4. Oral candidiasis. Secondary to steroids (systemic and inhaled) + antibiotics. Symptomatic, unable to eat. Rx nystatin for 10 days (anticipate she will be on steroids for >1 week). 5. Coronary artery disease. Monitor for any signs of cardiac distress. 6. Obesity with BMI 37.4. Inducing a restrictive pulmonary physiology.
[2023-04-11 17:31] LABS: Staphylococcus spp. DETECTED (NOT DETECTE)
[2023-04-11 17:32] LABS: Staphylococcus epidermidis DETECTED (NOT DETECTE)
[2023-04-11 23:47] LABS: Glucometer 223 mg/dL (74-106)
[2023-04-12] VITALS (24 sets, daily range): BP systolic 113–145; BP diastolic 67–86; PULSE 62–87; RESP 2–24; TEMP 36.6–36.9; O2SAT 91–94; BMI 37.4
[2023-04-12] MEDS: 0.9 % SODIUM CHLORIDE 1,000 ML 100 ML IV ×4 (00:11→22:27)
[2023-04-12] MEDS: GABAPENTIN 300 MG CAPSULE PO ×3 (00:12→21:29)
[2023-04-12] MEDS: POTASSIUM CHLORIDE 10 MEQ ER TABLET 20 MEQ PO ×3 (00:12→21:25)
[2023-04-12] MEDS: INSULIN ASPART 300 UNIT/3 ML PEN SUBQ ×6 (00:13→21:34)
[2023-04-12] MEDS: FAMOTIDINE/PF 20 MG/2 ML VIAL IV ×3 (00:13→21:30)
[2023-04-12] MEDS: IPRATROPIUM/ALBUTEROL SULFATE 3 ML AMPUL.NEB IH ×6 (03:51→23:08)
[2023-04-12] MEDS: METHYLPREDNISOLONE SOD SUCC PF 125 MG/2 ML VIAL IVP ×4 (05:27→21:24)
[2023-04-12 07:56] LABS: Hematocrit 38.8 % (36.0-48.0); Hemoglobin 13.1 g/dL (12.0-16.0); Mean Corpuscular HGB Conc 33.8 g/dL (29.9-35.2); Mean Corpuscular Hemoglobin 30.1 pg (26.7-34.0); Mean Corpuscular Volume 89.2 fL (81.0-99.0); Mean Platelet Volume 8.9 fL (9.5-13.5); Platelet Count 241 10^3/uL (150-450); Red Blood Count 4.35 10^6/uL (4.20-5.40); Red Cell Distribution Width 11.9 % (11.0-15.0); White Blood Count 7.8 10^3/uL (4.0-11.0)
[2023-04-12 08:08] LABS: Glucometer 214 mg/dL (74-106)
[2023-04-12 08:33] LABS: Segmented Neut Absolute Manual 7.17 10^3/uL (1.4-6.5)
[2023-04-12 08:34] LABS: Lymphocytes Absolute Manual 0.46 10^3/uL (1.20-3.80); Monocytes Absolute Manual 0.15 10^3/uL (0.30-0.80)
--- NOTE | 2023-04-12 09:07 | P.PN_ITS ---
Progress Note: Subjective Subjective Interval history: After something about patient does feel maybe a little bit better than previous day but not significantly. Still on the same amount of supplemental oxygen Exam Constitutional Vital Signs - 24 hr 04/11/23 09:50 04/11/23 10:15 04/11/23 11:56 Temperature Pulse Rate 62 60 Respiratory Rate 18 Blood Pressure [Left Arm] Pulse Oximetry Oxygen Delivery Method Oxygen Delivery Flow Rate Fraction of Inspired Oxygen 04/11/23 13:48 04/11/23 13:58 04/11/23 15:43 Temperature 98.2 F Pulse Rate 61 61 67 Respiratory Rate 19 Blood Pressure [Left Arm] 163/76 H Pulse Oximetry 90 L Oxygen Delivery Method Vapotherm Oxygen Delivery Flow Rate Fraction of Inspired Oxygen 04/11/23 17:36 04/11/23 22:00 04/11/23 19:53 Temperature Pulse Rate 69 Respiratory Rate 20 Blood Pressure [Left Arm] Pulse Oximetry 93 L Oxygen Delivery Method Vapotherm Oxygen Delivery Flow Rate 40 Fraction of Inspired Oxygen 70 04/11/23 19:58 04/11/23 20:01 04/11/23 22:01 Temperature Pulse Rate 73 79 87 Respiratory Rate 20 Blood Pressure [Left Arm] Pulse Oximetry 93 L Oxygen Delivery Method Vapotherm Oxygen Delivery Flow Rate 40 Fraction of Inspired Oxygen 70 04/11/23 22:14 04/11/23 23:24 04/12/23 00:01 Temperature 97.5 F L Pulse Rate 75 76 Respiratory Rate 18 18 Blood Pressure [Left Arm] 157/84 H Pulse Oximetry 92 L Oxygen Delivery Method Vapotherm Vapotherm Oxygen Delivery Flow Rate 40 40 Fraction of Inspired Oxygen 70 70 04/12/23 02:01 04/12/23 03:53 04/12/23 03:51 Temperature Pulse Rate 70 64 62 Respiratory Rate 18 Blood Pressure [Left Arm] Pulse Oximetry 92 L Oxygen Delivery Method Vapotherm Oxygen Delivery Flow Rate 40 Fraction of Inspired Oxygen 70 04/12/23 05:47 04/12/23 05:58 04/12/23 06:27 Temperature Pulse Rate 68 68 Respiratory Rate 18 Blood Pressure [Left Arm] Pulse Oximetry Oxygen Delivery Method Oxygen Delivery Flow Rate Fraction of Inspired Oxygen 04/12/23 06:47 04/12/23 07:51 04/12/23 08:01 Temperature 98.2 F Pulse Rate 73 77 Respiratory Rate 16 Blood Pressure [Left Arm] 145/81 H Pulse Oximetry 93 L Oxygen Delivery Method Vapotherm Vapotherm Oxygen Delivery Flow Rate 40 40 Fraction of Inspired Oxygen 70 70 Chest Common normals: inspection of chest normal Respiratory Effort & inspection: not able to speak in complete sentences Cardio Common normals: regular rate Progress Note: Objective Labs Labs: Short CBC 04/12/23 Range/Units 07:32 WBC 7.8 (4.0-11.0) 10^3/uL Hgb 13.1 (12.0-16.0) g/dL Hct 38.8 (36.0-48.0) % Plt Count 241 (150-450) 10^3/uL Progress Note: A&P Assessment and Plan (1) COVID-19: Plan Sinus tachycardia, respiratory distress, acute hypoxia secondary to residual effect of COVID-19 complicating acute exacerbation of COPD and asthma-has already been treated with Paxlovid, hold off on further antivirals as she is 10 days out from onset of symptoms, continue with Vapotherm, continue with steroids, and antibiotics, add high-dose Zyrtec and Pepcid.? Consult pulmonology -we will discuss with the team about need for keeping her in isolation, she is 11 days out from onset of symptoms Hyperglycemia likely complicated by steroids-Insulin sliding scale-We will need adjusted today Hypertension-continue with home medications GERD-IV? Pepcid Morbid obesity-diet management Thrombocytopenia likely secondary to the above-monitor daily Acute kidney injury secondary to the above-monitor daily-improved Medical treatment lasting more than 48 hours-we will need inpatient status. Fall Risk Details Pastor Fall Scale Risk Level: Low Fall Risk Current Medications: Current Medications Acetaminophen (Acetaminophen 325 Mg Tablet) 650 mg PO Q4H PRN PRN Reason: Pain Albuterol (Albuterol Sulfate 2.5 Mg/3 Ml Vial Neb) 2.5 mg IH Q2H PRN PRN Reason: dyspnea Albuterol/Ipratropium (Ipratropium/Albuterol Sulfate 3 Ml Ampul.Neb) 3 ml IH Q4H [facility] Last Admin: 04/12/23 07:49 Dose: 3 ml Amlodipine Besylate (Amlodipine Besylate 5 Mg Tablet) 5 mg PO DAILY [facility] Baclofen (Baclofen 10 Mg Tablet) 5 mg PO .qhs [facility] Benzonatate (Benzonatate 100 Mg Capsule) 100 mg PO .q12 PRN PRN Reason: cough Cetirizine HCl (Cetirizine Hcl 10 Mg Tablet) 20 mg PO QAM [facility] Cholecalciferol (Cholecalciferol (Vitamin D3) 25 Mcg/1,000 Units Tablet) 25 mcg PO DAILY [facility] Enoxaparin Sodium (Enoxaparin Sodium 100 Mg/Ml Syringe) 100 mg SUBQ BID [facility] Last Admin: 04/11/23 22:43 Dose: 100 mg Famotidine (Famotidine/Pf 20 Mg/2 Ml Vial) 20 mg IV Q12H [facility] Last Admin: 04/12/23 00:13 Dose: 20 mg Gabapentin (Gabapentin 300 Mg Capsule) 300 mg PO BID [facility] Last Admin: 04/12/23 00:12 Dose: 300 mg Hydrochlorothiazide (Hydrochlorothiazide 25 Mg Tablet) 25 mg PO DAILY [facility] Sodium Chloride (Sodium Chloride 0.9% 1,000 Ml) 1,000 mls @ 100 mls/hr IV .Q10H [facility] Last Admin: 04/12/23 00:11 Dose: 100 mls/hr Levofloxacin/Dextrose (Levaquin 750 Mg/150 Ml-D5w) 750 mg in 150 mls @ 100 mls/hr IV Q48H [facility] Last Admin: 04/11/23 11:15 Dose: 100 mls/hr, 100 mls/hr Insulin Aspart (Insulin Aspart 300 Unit/3 Ml Pen) 3 - 15 unit SUBQ [facility]; Protocol Last Admin: 04/12/23 00:13 Dose: 9 unit Magnesium (Magnesium Oxide 400 Mg Tablet) 400 mg PO DAILY [facility] Methylprednisolone Sodium Succinate (Methylprednisolone Sod Succ Pf 125 Mg/2 Ml Vial) 125 mg IVP Q6H [facility] Last Admin: 04/12/23 05:27 Dose: 125 mg Montelukast Sodium (Montelukast Sodium 10 Mg Tablet) 10 mg PO DAILY [facility] Nystatin (Nystatin 100,000 Unit/Ml Oral.Susp 500,000/5 Ml) 500,000 unit PO QID [facility] Stop: 04/21/23 18:01 Last Admin: 04/12/23 00:10 Dose: Not Given Ondansetron HCl (Ondansetron Pf 4 Mg/2 Ml Vial) 4 mg IV Q6H PRN PRN Reason: Nausea And Vomiting Paroxetine HCl (Paroxetine Hcl 20 Mg Tablet) 20 mg PO .qhs [facility] Polyethylene Glycol (Polyethylene Glycol 3350 17 Gm Powder Packet) 17 gm PO QD PRN PRN Reason: Constipation Potassium Chloride (Potassium Chloride 10 Meq Er Tablet) 20 meq PO BID [facility] Last Admin: 04/12/23 00:12 Dose: 20 meq Senna (Sennosides 8.6 Mg Tablet) 8.6 mg PO QD PRN PRN Reason: Constipation Solifenacin (Solifenacin Succinate 5 Mg Tablet) 5 mg PO DAILY [facility] Trazodone HCl ([facility]one Hcl 50 Mg Tablet) [facility] Spent With Patient Time: Total time spent is greater than 50% in coordination of care (as documented) at patient's floor/unit and/or counseling patient:
[2023-04-12] MEDS: ENOXAPARIN SODIUM 100 MG/ML SYRINGE SUBQ ×2 (09:30→21:25)
[2023-04-12] MEDS: CETIRIZINE HCL 10 MG TABLET 20 MG PO (09:31)
[2023-04-12] MEDS: MAGNESIUM OXIDE 400 MG TABLET PO (09:31)
[2023-04-12] MEDS: SOLIFENACIN SUCCINATE 5 MG TABLET PO (09:32)
[2023-04-12] MEDS: AMLODIPINE BESYLATE 5 MG TABLET PO (09:32)
--- NOTE | 2023-04-12 09:51 | CM.NOTE ---
Rounds made with Dr. Zepeda. Continues on the Vapotherm. No plan for discharge today.
[2023-04-12 11:40] LABS: Glucometer 254 mg/dL (74-106)
[2023-04-12 12:07] LABS: Glucometer 235 mg/dL (74-106)
--- NOTE | 2023-04-12 12:33 | DIETREC ---
Nutrition Recommendations: 1. Add Ensure HP once daily. Reviewed with
[2023-04-12 16:25] LABS: Glucometer 232 mg/dL (74-106)
[2023-04-12 16:31] LABS: Anion Gap 12.9; Aspartate Amino Transferase 36 U/L (15-37); BUN Creatinine Ratio 30.4; Bilirubin Total 0.4 mg/dL (0.2-1.0); Calcium 7.8 mg/dL (8.5-10.1); Carbon Dioxide 28.3 mmol/L (21.0-32.0); Chloride 104 mmol/L (98-107); Estimated GFR (African America 57 (>=60); Estimated GFR (Non-African Ame 47 (>=60); Glucose 221 mg/dL (74-106); Potassium 3.2 mmol/L (3.5-5.1); Sodium 142 mmol/L (136-145)
[2023-04-12 16:32] LABS: Alanine Aminotransferase 54 U/L (14-59); Albumin Globulin Ratio 0.9; Albumin Level 2.8 g/dL (3.4-5.0); Alkaline Phosphatase 60 U/L (46-116); Globulin 3.2 g/dL
--- NOTE | 2023-04-12 16:45 | PM.PLPN ---
Progress Note: A&P Assessment and Plan (1) COVID-19: Assessment and Plan: 1. Acute viral pneumonia secondary to COVID-19.? Patient's illness seems to have plateaued...this may be as critical as she becomes...FiO2 has not improved, but has not worsened either. Continue supportive care at this time. 2. Acute exacerbation of COPD.? Continue bronchodilators, steroids. Resume Trelegy @ discharge 3. Acute hypoxic respiratory failure.? Secondary to #1 + #2.? Vapotherm leveled off @ FiO2 70%. Patient proned overnight, but stressed importance of proning during the day as well (which she is not doing). Discussed with patient that she will most likely require home O2 @ discharge for at least a short period of time; she voiced she was okay with that. 4. Oral candidiasis. Secondary to steroids (systemic and inhaled) + antibiotics.? Continue nystatin. 5. Coronary artery disease.? Monitor for any signs of cardiac distress. 6. Obesity with BMI 37.4.? Inducing a restrictive pulmonary physiology. Weight loss advised. Fall Risk Details Pastor Fall Scale Risk Level: Low Fall Risk Current Medications: Current Medications Acetaminophen (Acetaminophen 325 Mg Tablet) 650 mg PO Q4H PRN PRN Reason: Pain Albuterol (Albuterol Sulfate 2.5 Mg/3 Ml Vial Neb) 2.5 mg IH Q2H PRN PRN Reason: dyspnea Albuterol/Ipratropium (Ipratropium/Albuterol Sulfate 3 Ml Ampul.Neb) 3 ml IH Q4H [facility] Last Admin: 04/12/23 14:53 Dose: 3 ml Amlodipine Besylate (Amlodipine Besylate 5 Mg Tablet) 5 mg PO DAILY [facility] Last Admin: 04/12/23 09:32 Dose: 5 mg Baclofen (Baclofen 10 Mg Tablet) 5 mg PO .qhs [facility] Benzonatate (Benzonatate 100 Mg Capsule) 100 mg PO .q12 PRN PRN Reason: cough Cetirizine HCl (Cetirizine Hcl 10 Mg Tablet) 20 mg PO QAM [facility] Last Admin: 04/12/23 09:31 Dose: 20 mg Cholecalciferol (Cholecalciferol (Vitamin D3) 25 Mcg/1,000 Units Tablet) 25 mcg PO DAILY [facility] Last Admin: 04/12/23 10:02 Dose: Not Given Enoxaparin Sodium (Enoxaparin Sodium 100 Mg/Ml Syringe) 100 mg SUBQ BID [facility] Last Admin: 04/12/23 09:30 Dose: 100 mg Famotidine (Famotidine/Pf 20 Mg/2 Ml Vial) 20 mg IV Q12H [facility] Last Admin: 04/12/23 09:31 Dose: 20 mg Gabapentin (Gabapentin 300 Mg Capsule) 300 mg PO BID [facility] Last Admin: 04/12/23 09:32 Dose: 300 mg Hydrochlorothiazide (Hydrochlorothiazide 25 Mg Tablet) 25 mg PO DAILY [facility] Last Admin: 04/12/23 10:02 Dose: Not Given Sodium Chloride (Sodium Chloride 0.9% 1,000 Ml) 1,000 mls @ 100 mls/hr IV .Q10H [facility] Last Admin: 04/12/23 13:33 Dose: 100 mls/hr Levofloxacin/Dextrose (Levaquin 750 Mg/150 Ml-D5w) 750 mg in 150 mls @ 100 mls/hr IV Q48H [facility] Last Admin: 04/11/23 11:15 Dose: 100 mls/hr, 100 mls/hr Insulin Aspart (Insulin Aspart 300 Unit/3 Ml Pen) 3 - [facility]; Protocol Last Admin: 04/12/23 12:07 Dose: 9 unit Magnesium (Magnesium Oxide 400 Mg Tablet) 400 mg PO DAILY [facility] Last Admin: 04/12/23 09:31 Dose: 400 mg Methylprednisolone Sodium Succinate (Methylprednisolone Sod Succ Pf 125 Mg/2 Ml Vial) 125 mg IVP Q6H [facility] Last Admin: 04/12/23 16:24 Dose: 125 mg Montelukast Sodium (Montelukast Sodium 10 Mg Tablet) 10 mg PO DAILY [facility] Last Admin: 04/12/23 10:03 Dose: Not Given Nystatin (Nystatin 100,000 Unit/Ml Oral.Susp 500,000/5 Ml) 500,000 unit PO QID [facility] Stop: 04/21/23 18:01 Last Admin: 04/12/23 12:07 Dose: 500,000 unit Ondansetron HCl (Ondansetron Pf 4 Mg/2 Ml Vial) 4 mg IV Q6H PRN PRN Reason: Nausea And Vomiting Paroxetine HCl (Paroxetine Hcl 20 Mg Tablet) 20 mg PO .qhs [facility] Polyethylene Glycol (Polyethylene Glycol 3350 17 Gm Powder Packet) 17 gm PO QD PRN PRN Reason: Constipation Potassium Chloride (Potassium Chloride 10 Meq Er Tablet) 20 meq PO BID [facility] Last Admin: 04/12/23 09:32 Dose: 20 meq Senna (Sennosides 8.6 Mg Tablet) 8.6 mg PO QD PRN PRN Reason: Constipation Solifenacin (Solifenacin Succinate 5 Mg Tablet) 5 mg PO DAILY [facility] Last Admin: 04/12/23 09:32 Dose: 5 mg Trazodone HCl (Trazodone Hcl 50 Mg Tablet) 50 mg PO .qhs [facility] Subjective Subjective Interval history: Patient states she thinks she is feeling a little better. She continues to have a cough and ELIZABETH. No new complaints at this time. Asked patient about proning...she said she slept like that overnight, but has not been doing it throughout the day. Exam Constitutional Vital Signs - 24 hr 04/11/23 17:36 04/11/23 22:00 04/11/23 19:53 Temperature Pulse Rate 69 Respiratory Rate 20 Blood Pressure Blood Pressure [Left Arm] Pulse Oximetry 93 L Oxygen Delivery Method Vapotherm Oxygen Delivery Flow Rate 40 Fraction of Inspired Oxygen 70 04/11/23 19:58 04/11/23 20:01 04/11/23 22:01 Temperature Pulse Rate 73 79 87 Respiratory Rate 20 Blood Pressure Blood Pressure [Left Arm] Pulse Oximetry 93 L Oxygen Delivery Method Vapotherm Oxygen Delivery Flow Rate 40 Fraction of Inspired Oxygen 70 04/11/23 22:14 04/11/23 23:24 04/12/23 00:01 Temperature 97.5 F L Pulse Rate 75 76 Respiratory Rate 18 18 Blood Pressure Blood Pressure [Left Arm] 157/84 H Pulse Oximetry 92 L Oxygen Delivery Method Vapotherm Vapotherm Oxygen Delivery Flow Rate 40 40 Fraction of Inspired Oxygen 70 70 04/12/23 02:01 04/12/23 03:53 04/12/23 03:51 Temperature Pulse Rate 70 64 62 Respiratory Rate 18 Blood Pressure Blood Pressure [Left Arm] Pulse Oximetry 92 L Oxygen Delivery Method Vapotherm Oxygen Delivery Flow Rate 40 Fraction of Inspired Oxygen 70 04/12/23 05:47 04/12/23 05:58 04/12/23 06:27 Temperature Pulse Rate 68 68 Respiratory Rate 18 Blood Pressure Blood Pressure [Left Arm] Pulse Oximetry Oxygen Delivery Method Oxygen Delivery Flow Rate Fraction of Inspired Oxygen 06/07/23 06:47 04/12/23 07:51 04/12/23 08:01 Temperature 98.2 F Pulse Rate 73 77 Respiratory Rate 16 Blood Pressure Blood Pressure [Left Arm] 145/81 H Pulse Oximetry 93 L Oxygen Delivery Method Vapotherm Vapotherm Oxygen Delivery Flow Rate 40 40 Fraction of Inspired Oxygen 70 70 04/12/23 09:32 04/12/23 09:57 04/12/23 11:59 Temperature Pulse Rate 72 Respiratory Rate Blood Pressure 118/67 Blood Pressure [Left Arm] Pulse Oximetry 94 L Oxygen Delivery Method Vapotherm Oxygen Delivery Flow Rate 40 Fraction of Inspired Oxygen 70 04/12/23 12:07 04/12/23 13:49 04/12/23 14:53 Temperature Pulse Rate 82 64 Respiratory Rate Blood Pressure Blood Pressure [Left Arm] Pulse Oximetry 92 L Oxygen Delivery Method Vapotherm Oxygen Delivery Flow Rate 40 Fraction of Inspired Oxygen 70 04/12/23 16:04 Temperature Pulse Rate 77 Respiratory Rate Blood Pressure Blood Pressure [Left Arm] Pulse Oximetry Oxygen Delivery Method Oxygen Delivery Flow Rate Fraction of Inspired Oxygen Common normals: no apparent distress General appearance: cooperative and comfortable HENMT Other: Wearing Vapotherm cannula Eye Common normals: PERRL Neck & C-Spine General: trachea midline Chest Chest: symmetrical chest wall rise Respiratory Other: Diminished breath sounds throughout with diffuse crackles and rhonchi. No wheezes. Cardio Rate: regular rate Rhythm: regular rhythm GI Common normals: soft to palpation and non-tender Auscultation: normoactive bowel sounds Extremity General: no edema Neuro Common normals: no focal motor deficits Psych Attitude: calm (pleasant) and engaged Speech: normal speech
[2023-04-12 20:45] LABS: Glucometer 215 mg/dL (74-106)
[2023-04-13] VITALS (24 sets, daily range): BP systolic 137–176; BP diastolic 71–90; PULSE 62–87; RESP 16–24; TEMP 36.4–36.9; O2SAT 6–96
[2023-04-13] MEDS: METHYLPREDNISOLONE SOD SUCC PF 125 MG/2 ML VIAL IVP ×4 (02:41→21:26)
[2023-04-13] MEDS: IPRATROPIUM/ALBUTEROL SULFATE 3 ML AMPUL.NEB IH ×6 (03:43→23:10)
[2023-04-13 04:52] LABS: Basophils Percent Auto 0.1 % (0.2-2.0); Hematocrit 37.1 % (36.0-48.0); Hemoglobin 12.4 g/dL (12.0-16.0); Immature Granulocytes Abs Auto 0.27 10^3/uL (0.00-0.03); Immature Granulocytes Pct Auto 3.3 % (0.0-0.5); Lymphocytes Absolute Auto 0.4 10^3/uL (1.2-3.8); Lymphocytes Percent Auto 4.9 % (20.5-60.0); Mean Corpuscular HGB Conc 33.4 g/dL (29.9-35.2); Mean Corpuscular Volume 89.6 fL (81.0-99.0); Monocytes Absolute Auto 0.3 10^3/uL (0.3-0.8); Monocytes Percent Auto 3.5 % (1.7-12.0); Neutrophils Absolute Auto 7.2 10^3/uL (1.4-6.5); Neutrophils Percent Auto 88.2 % (43.0-75.0); Platelet Count 216 10^3/uL (150-450); Red Blood Count 4.14 10^6/uL (4.20-5.40); Red Cell Distribution Width 11.9 % (11.0-15.0); White Blood Count 8.1 10^3/uL (4.0-11.0)
[2023-04-13 06:12] LABS: Alanine Aminotransferase 117 U/L (14-59); Albumin Level 2.7 g/dL (3.4-5.0); Alkaline Phosphatase 62 U/L (46-116); Aspartate Amino Transferase 63 U/L (15-37); Bilirubin Total 0.4 mg/dL (0.2-1.0); Calcium 7.5 mg/dL (8.5-10.1); Carbon Dioxide 27.9 mmol/L (21.0-32.0); Chloride 106 mmol/L (98-107); Estimated GFR (African America >60 (>=60); Estimated GFR (Non-African Ame 51 (>=60); Globulin 2.8 g/dL; Glucose 214 mg/dL (74-106); Sodium 143 mmol/L (136-145); Total Protein 5.5 g/dL (6.4-8.2)
[2023-04-13 06:32] LABS: Potassium 2.9 mmol/L (3.5-5.1)
[2023-04-13] MEDS: LEVOFLOXACIN IN DEXTROSE 5 % 750 MG/150 ML IV.SOLN 100 MG IV (08:18)
[2023-04-13] MEDS: POTASSIUM CHLORIDE 40 MEQ in 0.9 % SODIUM CHLORIDE 250 ML 68 MEQ IV (08:18)
[2023-04-13] MEDS: INSULIN ASPART 300 UNIT/3 ML PEN SUBQ ×3 (08:19→21:31)
--- NOTE | 2023-04-13 09:48 | CM.NOTE ---
Rounds made with Dr. Zepeda. Remains on Vapotherm. No plan for discharge today.
[2023-04-13] MEDS: 0.9 % SODIUM CHLORIDE 1,000 ML 100 ML IV (09:51)
[2023-04-13] MEDS: ENOXAPARIN SODIUM 100 MG/ML SYRINGE SUBQ ×2 (09:51→21:28)
[2023-04-13] MEDS: FAMOTIDINE/PF 20 MG/2 ML VIAL IV ×2 (09:52→21:28)
[2023-04-13] MEDS: POTASSIUM CHLORIDE 10 MEQ ER TABLET 20 MEQ PO ×2 (09:52→21:29)
[2023-04-13] MEDS: GABAPENTIN 300 MG CAPSULE PO ×2 (09:52→21:29)
[2023-04-13] MEDS: SOLIFENACIN SUCCINATE 5 MG TABLET PO (09:53)
[2023-04-13] MEDS: MONTELUKAST SODIUM 10 MG TABLET PO (09:54)
[2023-04-13] MEDS: CETIRIZINE HCL 10 MG TABLET 20 MG PO (09:54)
[2023-04-13] MEDS: CHOLECALCIFEROL (VITAMIN D3) 25 MCG/1,000 UNITS TABLET PO (09:54)
[2023-04-13] MEDS: AMLODIPINE BESYLATE 5 MG TABLET PO (09:55)
[2023-04-13] MEDS: INSULIN DETEMIR 300 UNIT/3 ML INSULN.PEN 10 UNIT SUBQ ×2 (09:55→21:33)
[2023-04-13] MEDS: MAGNESIUM OXIDE 400 MG TABLET PO (09:55)
[2023-04-13] MEDS: HYDROCHLOROTHIAZIDE 25 MG TABLET PO (10:00)
--- NOTE | 2023-04-13 10:02 | P.PN_ITS ---
Progress Note: Subjective Subjective Interval history: No real improvement from previous day according to patient Exam Constitutional Vital Signs - 24 hr 04/12/23 11:59 04/12/23 12:07 04/12/23 13:49 Temperature Pulse Rate 82 64 Respiratory Rate Blood Pressure [Left Arm] Blood Pressure [Right Arm] Pulse Oximetry 94 L Oxygen Delivery Method Vapotherm Oxygen Delivery Flow Rate 40 Fraction of Inspired Oxygen 70 04/12/23 14:53 04/12/23 16:04 04/12/23 14:35 Temperature 97.9 F Pulse Rate 77 87 Respiratory Rate 24 Blood Pressure [Left Arm] 145/86 H Blood Pressure [Right Arm] Pulse Oximetry 92 L 91 L Oxygen Delivery Method Vapotherm Vapotherm Oxygen Delivery Flow Rate 40 40 Fraction of Inspired Oxygen 70 04/12/23 17:49 04/12/23 19:13 04/12/23 19:21 Temperature Pulse Rate 73 70 Respiratory Rate 18 Blood Pressure [Left Arm] Blood Pressure [Right Arm] Pulse Oximetry 94 L Oxygen Delivery Method Room Air Vapotherm Oxygen Delivery Flow Rate 40 Fraction of Inspired Oxygen 70 04/12/23 19:21 04/12/23 19:56 04/12/23 20:26 Temperature 98.4 F Pulse Rate 72 74 Respiratory Rate 18 Blood Pressure [Left Arm] Blood Pressure [Right Arm] 113/67 Pulse Oximetry 94 L 92 L Oxygen Delivery Method Vapotherm Vapotherm Oxygen Delivery Flow Rate 40 Fraction of Inspired Oxygen 70 04/12/23 22:00 04/12/23 23:08 04/13/23 00:05 Temperature Pulse Rate 76 66 67 Respiratory Rate 2 L Blood Pressure [Left Arm] Blood Pressure [Right Arm] Pulse Oximetry 92 L Oxygen Delivery Method Vapotherm Oxygen Delivery Flow Rate 40 Fraction of Inspired Oxygen 70 04/13/23 02:00 04/13/23 03:57 04/13/23 03:43 Temperature Pulse Rate 66 66 72 Respiratory Rate 20 Blood Pressure [Left Arm] Blood Pressure [Right Arm] Pulse Oximetry 93 L Oxygen Delivery Method Vapotherm Oxygen Delivery Flow Rate 40 Fraction of Inspired Oxygen 70 04/13/23 06:02 04/13/23 07:23 04/13/23 07:26 Temperature 97.6 F Pulse Rate 64 62 Respiratory Rate Blood Pressure [Left Arm] Blood Pressure [Right Arm] 137/73 H Pulse Oximetry 90 L 90 L Oxygen Delivery Method Vapotherm Oxygen Delivery Flow Rate 40 Fraction of Inspired Oxygen 70 04/13/23 07:59 Temperature Pulse Rate 85 Respiratory Rate Blood Pressure [Left Arm] Blood Pressure [Right Arm] Pulse Oximetry Oxygen Delivery Method Oxygen Delivery Flow Rate Fraction of Inspired Oxygen Documenting provider has reviewed patient's vital signs: yes Common normals: no apparent distress and oriented x3 HENMT Common normals: normocephalic and moist oral mucous membranes Head and scalp: normocephalic Other: Wearing Vapotherm cannula Eye Common normals: PERRL Pupil: PERRL Neck & C-Spine General: trachea midline Lymph Lymphatic: no lymphadenopathy noted Chest Common normals: inspection of chest normal Chest: symmetrical chest wall rise and other (Mild conversational dyspnea) Respiratory Effort & inspection: tachypneic, respiratory distress, labored and other (wheezes in bases); not able to speak in complete sentences Auscultation: rhonchi Other: Diminished breath sounds throughout with diffuse crackles and rhonchi. No wheezes. Cardio Common normals: regular rate and regular rhythm Rate: regular rate and tachycardic Rhythm: regular rhythm GI Common normals: Normal to inspection, nondistended, normoactive bowel sounds present, soft to palpation, non-tender and no hepatosplenomegaly Auscultation: normoactive bowel sounds Palpation: soft and no hepatosplenomegaly Other: Obese Extremity Common normals: normal to inspection and no clubbing, cyanosis or edema General: no edema Neuro Common normals: oriented x3, CN's II-XII intact bilaterally, moves all extremities and no focal motor deficits Psych Common normals: mental status grossly normal and speech normal Speech: normal speech Progress Note: Objective Labs Labs: Short CBC 04/13/23 Range/Units 04:20 WBC 8.1 (4.0-11.0) 10^3/uL Hgb 12.4 (12.0-16.0) g/dL Hct 37.1 (36.0-48.0) % Plt Count 216 (150-450) 10^3/uL BMP 04/12/23 04/13/23 07:32 04:20 Sodium 142 143 Potassium 3.2 L 2.9 L* Chloride 104 106 Carbon Dioxide 28.3 27.9 BUN 35.0 H 30.0 H Creatinine 1.15 H 1.07 H Glucose 221 H 214 H Calcium 7.8 L 7.5 L Liver Function 04/12/23 04/13/23 Range/Units 07:32 04:20 Total Bilirubin 0.4 0.4 (0.2-1.0) mg/dL AST 36 63 H (15-37) U/L ALT 54 117 H (14-59) U/L Alkaline Phosphatase 60 62 (46-116) U/L Albumin 2.8 L 2.7 L (3.4-5.0) g/dL Progress Note: A&P Assessment and Plan (1) COVID-19: Plan Sinus tachycardia, respiratory distress, acute hypoxia secondary to residual effect of COVID-19 complicating acute exacerbation of COPD and asthma-has already been treated with Paxlovid, hold off on further antivirals as she is 10 days out from onset of symptoms, continue with Vapotherm, continue with steroids, and antibiotics, add high-dose Zyrtec and Pepcid.? Consult pulmonology -we will discuss with the team about need for keeping her in isolation, she is 12 days out from onset of symptoms Hyperglycemia likely complicated by steroids-Insulin sliding scale-We will need adjusted today-Adding long-acting insulin Hypertension-continue with home medications-Continue to adjust GERD-IV? Pepcid Morbid obesity-diet management Thrombocytopenia likely secondary to the above-monitor daily Acute kidney injury secondary to the above-monitor daily-improved Medical treatment lasting more than 48 hours-we will need inpatient status. Fall Risk Details Pastor Fall Scale Risk Level: Low Fall Risk Current Medications: Current Medications Acetaminophen (Acetaminophen 325 Mg Tablet) 650 mg PO Q4H PRN PRN Reason: Pain Albuterol (Albuterol Sulfate 2.5 Mg/3 Ml Vial [facility]) 2.5 mg IH Q2H PRN PRN Reason: dyspnea Albuterol/Ipratropium (Ipratropium/Albuterol Sulfate 3 Ml Ampul.[facility]) 3 ml IH Q4H [facility] Last Admin: 04/13/23 07:20 Dose: 3 ml Amlodipine Besylate (Amlodipine Besylate 5 Mg Tablet) 5 mg PO DAILY [facility] Last Admin: 04/13/23 09:55 Dose: 5 mg Baclofen (Baclofen 10 Mg Tablet) 5 mg PO .qhs [facility] Benzonatate (Benzonatate 100 Mg Capsule) 100 mg PO .q12 PRN PRN Reason: cough Cetirizine HCl (Cetirizine Hcl 10 Mg Tablet) 20 mg PO QAM [facility] Last Admin: 04/13/23 09:54 Dose: 20 mg Cholecalciferol (Cholecalciferol (Vitamin D3) 25 Mcg/1,000 Units Tablet) 25 mcg PO DAILY [facility] Last Admin: 04/13/23 09:54 Dose: 25 mcg Enoxaparin Sodium (Enoxaparin Sodium 100 Mg/Ml Syringe) 100 mg SUBQ BID [facility] Last Admin: 06/08/23 09:51 Dose: 100 mg Famotidine (Famotidine/Pf 20 Mg/2 Ml Vial) 20 mg IV Q12H [facility] Last Admin: 04/13/23 09:52 Dose: 20 mg Gabapentin (Gabapentin 300 Mg Capsule) 300 mg PO BID [facility] Last Admin: 04/13/23 09:52 Dose: 300 mg Hydrochlorothiazide (Hydrochlorothiazide 25 Mg Tablet) 25 mg PO DAILY [facility] Last Admin: 04/13/23 10:00 Dose: 25 mg Sodium Chloride (Sodium Chloride 0.9% 1,000 Ml) 1,000 mls @ 100 mls/hr IV .Q10H [facility] Last Admin: 04/13/23 09:51 Dose: 100 mls/hr Levofloxacin/Dextrose (Levaquin 750 Mg/150 Ml-D5w) 750 mg in 150 mls @ 100 mls/hr IV Q48H [facility] Last Admin: 04/13/23 08:18 Dose: 100 mls/hr, 100 mls/hr Potassium Chloride 40 meq/ (Sodium Chloride) 270 mls @ 67.5 mls/hr IV ONCE ONE Stop: 04/13/23 11:59 Last Admin: 04/13/23 08:18 Dose: 68 ml/hr, 68 mls/hr Insulin Aspart (Insulin Aspart 300 Unit/3 Ml Pen) 3 - 15 unit SUBQ [facility]; Protocol Last Admin: 04/13/23 08:43 Dose: Not Given Insulin Detemir (Insulin Detemir 300 Unit/3 Ml Insuln.Pen) 10 unit SUBQ BID [facility] Last Admin: 04/13/23 09:55 Dose: 10 unit Magnesium (Magnesium Oxide 400 Mg Tablet) 400 mg PO DAILY [facility] Last Admin: 04/13/23 09:55 Dose: 400 mg Methylprednisolone Sodium Succinate (Methylprednisolone Sod Succ Pf 125 Mg/2 Ml Vial) 125 mg IVP Q6H [facility] Last Admin: 04/13/23 09:57 Dose: 125 mg Montelukast Sodium (Montelukast Sodium 10 Mg Tablet) 10 mg PO DAILY [facility] Last Admin: 04/13/23 09:54 Dose: 10 mg Nystatin (Nystatin 100,000 Unit/Ml Oral.Susp 500,000/5 Ml) 500,000 unit PO QID [facility] Stop: 04/21/23 18:01 Last Admin: 04/13/23 09:52 Dose: 500,000 unit Ondansetron HCl (Ondansetron Pf 4 Mg/2 Ml Vial) 4 mg IV Q6H PRN PRN Reason: Nausea And Vomiting Paroxetine HCl (Paroxetine Hcl 20 Mg Tablet) 20 mg PO .qhs [facility] Polyethylene Glycol (Polyethylene Glycol 3350 17 Gm Powder Packet) 17 gm PO QD PRN PRN Reason: Constipation Potassium Chloride (Potassium Chloride 10 Meq Er Tablet) 20 meq PO BID [facility] Last Admin: 04/13/23 09:52 Dose: 20 meq Senna (Sennosides 8.6 Mg Tablet) 8.6 mg PO QD PRN PRN Reason: Constipation Solifenacin (Solifenacin Succinate 5 Mg Tablet) 5 mg PO DAILY [facility] Last Admin: 04/13/23 09:53 Dose: 5 mg Trazodone HCl (Trazodone Hcl 50 Mg Tablet) 50 mg PO .qhs [facility] Time Spent With Patient Time: Total time spent is greater than 50% in coordination of care (as documented) at patient's floor/unit and/or counseling patient:
--- NOTE | 2023-04-13 13:31 | NUTR.NU ---
Patient finished all three meals yesterday. Calorie count: 1273 kcals, 63 g protein. Below estimated needs. Patient also finished breakfast this morning. No nutrition supplement ordered at this time.
[2023-04-13] MEDS: BENZONATATE 100 MG CAPSULE PO (14:25)
--- NOTE | 2023-04-13 14:54 | XR_ITS ---
The [address] [address] Patient Name: JHONATAN MONTOYA MRN: [id number] date: 1955 Sex: F Assigned Patient Location: [place] Current Patient Location: [place] Accession/Order Number: [id number] Exam Date: 04/13/2023 15:10 Report Date: 04/13/2023 15:28 At the request of: BO MCCLAIN Procedure: XR chest 1V EXAMINATION: XR chest 1V HISTORY: Acute hypoxic respiratory failure, COVID-19 COMPARISON: XR chest 04/10/2023 FINDINGS: LUNGS: Opacities within lung bases, left greater than right. VASCULATURE: No increased pulmonary vasculature. PLEURA: No pneumothorax, effusion, or pleural thickening. CARDIAC: No cardiomegaly or cardiac silhouette abnormality. MEDIASTINUM: No visible mass or adenopathy. BONES: No fracture or visible bone lesion. OTHER: Negative. IMPRESSION: 1. Low lung volume examination with mild right, moderate left basilar infiltrates versus atelectasis. Electronically authenticated by: STEPH GRANADOS Date: 04/13/2023 15:28
--- NOTE | 2023-04-13 16:30 | PM.PLPN ---
Progress Note: A&P Assessment and Plan (1) COVID-19: Assessment and Plan: 1. Acute viral pneumonia secondary to COVID-19.? Coughing paroxysm today...had difficulty with expectorating, desaturated during the event, now requiring FiO2 90%...question if secretions are loosening. She feels she has to bring something up but struggles. Ordered CXR... nothing really significantly changed. Will add PEP and Mucinex. Recheck COVID-19 antigen; if negative, remove patient from isolation. 2. Acute exacerbation of COPD.? Continue bronchodilators, steroids. Resume Trelegy @ discharge 3. Acute hypoxic respiratory failure.? Secondary to #1 + #2.?Originally had leveled off ~FiO2 70%, but had increased O2 demands now. Hopefully patient will recover, but if she gets worse, will need to transition to BiPAP. 4. Oral candidiasis. Secondary to steroids (systemic and inhaled) + antibiotics.? Improved, less candidiasis in oral cavity. Continue nystatin. 5. Coronary artery disease.? Monitor for any signs of cardiac distress. 6. Obesity with BMI 37.4.? Inducing a restrictive pulmonary physiology. Weight loss advised. Subjective Subjective Interval history: Patient was doing okay throughout the morning to early afternoon, but then had a coughing paroxysm. Had difficulty maintaining saturations, with FiO2 increased to 90% on Vapotherm. The patient states she feels that she has secretions in her chest, but is having difficulty expectorating them - she feels congested. No new fevers or chills. She has been eating, but not drinking much. She has been compliant with proning. Exam Constitutional Vital Signs - 24 hr 04/12/23 17:49 04/12/23 19:13 04/12/23 19:21 Temperature Pulse Rate 73 70 Respiratory Rate 18 Blood Pressure [Left Arm] Blood Pressure [Right Arm] Pulse Oximetry 94 L Oxygen Delivery Method Room Air Vapotherm Oxygen Delivery Flow Rate 40 Fraction of Inspired Oxygen 70 04/12/23 19:21 04/12/23 19:56 04/12/23 20:26 Temperature 98.4 F Pulse Rate 72 74 Respiratory Rate 18 Blood Pressure [Left Arm] Blood Pressure [Right Arm] 113/67 Pulse Oximetry 94 L 92 L Oxygen Delivery Method Vapotherm Vapotherm Oxygen Delivery Flow Rate 40 Fraction of Inspired Oxygen 70 04/12/23 22:00 04/12/23 23:08 04/13/23 00:05 Temperature Pulse Rate 76 66 67 Respiratory Rate 2 L Blood Pressure [Left Arm] Blood Pressure [Right Arm] Pulse Oximetry 92 L Oxygen Delivery Method Vapotherm Oxygen Delivery Flow Rate 40 Fraction of Inspired Oxygen 70 04/13/23 02:00 04/13/23 03:57 04/13/23 03:43 Temperature Pulse Rate 66 66 72 Respiratory Rate 20 Blood Pressure [Left Arm] Blood Pressure [Right Arm] Pulse Oximetry 93 L Oxygen Delivery Method Vapotherm Oxygen Delivery Flow Rate 40 Fraction of Inspired Oxygen 70 04/13/23 06:02 04/13/23 07:23 04/13/23 07:26 Temperature 97.6 F Pulse Rate 64 62 Respiratory Rate Blood Pressure [Left Arm] Blood Pressure [Right Arm] 137/73 H Pulse Oximetry 90 L 90 L Oxygen Delivery Method Vapotherm Oxygen Delivery Flow Rate 40 Fraction of Inspired Oxygen 70 04/13/23 07:59 04/13/23 10:04 04/13/23 12:01 Temperature Pulse Rate 85 70 Respiratory Rate Blood Pressure [Left Arm] Blood Pressure [Right Arm] Pulse Oximetry 89 L Oxygen Delivery Method Vapotherm Oxygen Delivery Flow Rate 40 Fraction of Inspired Oxygen 70 04/13/23 12:01 04/13/23 14:00 04/13/23 14:00 Temperature 98.4 F Pulse Rate 80 80 87 Respiratory Rate 24 Blood Pressure [Left Arm] 176/90 H Blood Pressure [Right Arm] Pulse Oximetry 82 L Oxygen Delivery Method Vapotherm Oxygen Delivery Flow Rate Fraction of Inspired Oxygen 70 04/13/23 14:38 04/13/23 14:42 04/13/23 15:03 Temperature Pulse Rate Respiratory Rate Blood Pressure [Left Arm] Blood Pressure [Right Arm] Pulse Oximetry 86 L 91 L 92 L Oxygen Delivery Method Vapotherm Vapotherm Vapotherm Oxygen Delivery Flow Rate 40 Fraction of Inspired Oxygen 80 90 90 04/13/23 16:11 Temperature Pulse Rate 76 Respiratory Rate Blood Pressure [Left Arm] Blood Pressure [Right Arm] Pulse Oximetry 95 Oxygen Delivery Method Oxygen Delivery Flow Rate Fraction of Inspired Oxygen Documenting provider has reviewed patient's vital signs: yes Other: Mildly increased work of breathing. HENMT Other: Wearing Vapotherm cannula. Candidiasis improved from 04/11/2023. Eye Common normals: PERRL Neck & C-Spine General: trachea midline Chest Chest: symmetrical chest wall rise Respiratory Other: Diminished breath sounds. More scattered rhonchi today - sounds more loose. No wheezes. Cardio Rate: regular rate Rhythm: regular rhythm GI Common normals: soft to palpation and non-tender Auscultation: normoactive bowel sounds Extremity General: no edema Neuro Common normals: no focal motor deficits Psych Other: Has a concerned look on her face.
[2023-04-13 17:00] LABS: SARS-CoV-2 Ag Negative (NEGATIVE)
[2023-04-13] MEDS: GUAIFENESIN 600 MG TAB.ER.12H PO (17:55)
[2023-04-13] MEDS: NYSTATIN 500,000 UNIT/5 ML ORAL.SUSP 500000 UNIT PO ×2 (18:09→21:27)
--- NOTE | 2023-04-13 19:32 | RESP.RT ---
Sp02 96% on 40L Fi02 90% Vapotherm, titrated Fi02 down to 85%
[2023-04-13] MEDS: TRAZODONE HCL 50 MG TABLET PO (21:27)
[2023-04-13] MEDS: BACLOFEN 10 MG TABLET 5 MG PO (21:28)
[2023-04-13] MEDS: PAROXETINE HCL 20 MG TABLET PO (21:29)
[2023-04-13] MEDS: ACETAMINOPHEN 325 MG TABLET 650 MG PO (21:46)
[2023-04-14] VITALS (26 sets, daily range): BP systolic 90–152; BP diastolic 7–66; PULSE 61–80; RESP 17–26; TEMP 36.3–36.7; O2SAT 86–97
--- NOTE | 2023-04-14 00:18 | RESP.RT ---
Spo2 ranging from 85%-88% on 40L Fi02 85% Vapotherm. Increased Fi02 up to 90% and Sp02 increased to 90%. Encouraged pt to prone.
[2023-04-14] MEDS: IPRATROPIUM/ALBUTEROL SULFATE 3 ML AMPUL.NEB IH ×5 (03:46→22:51)
--- NOTE | 2023-04-14 04:39 | RESP.RT ---
SPO2 ranging from 86%-88% on 40L Fi02 90% Vapotherm, titrated Fi02 up to 100%
[2023-04-14 06:05] LABS: Alanine Aminotransferase 132 U/L (14-59); Albumin Globulin Ratio 0.9; Albumin Level 2.7 g/dL (3.4-5.0); Alkaline Phosphatase 65 U/L (46-116); Anion Gap 10.2; Aspartate Amino Transferase 43 U/L (15-37); BUN Creatinine Ratio 26.2; Bilirubin Total 0.4 mg/dL (0.2-1.0); Calcium 7.9 mg/dL (8.5-10.1); Carbon Dioxide 30.7 mmol/L (21.0-32.0); Chloride 104 mmol/L (98-107); Estimated GFR (African America >60 (>=60); Estimated GFR (Non-African Ame 51 (>=60); Globulin 2.9 g/dL; Glucose 210 mg/dL (74-106); Sodium 142 mmol/L (136-145); Total Protein 5.6 g/dL (6.4-8.2)
[2023-04-14 06:07] LABS: Potassium 2.9 mmol/L (3.5-5.1)
[2023-04-14] MEDS: NYSTATIN 500,000 UNIT/5 ML ORAL.SUSP 500000 UNIT PO ×4 (06:12→21:29)
[2023-04-14] MEDS: GUAIFENESIN 600 MG TAB.ER.12H PO ×2 (06:13→18:26)
[2023-04-14] MEDS: METHYLPREDNISOLONE SOD SUCC PF 125 MG/2 ML VIAL IVP ×4 (06:15→21:33)
--- NOTE | 2023-04-14 07:43 | RESP.RT ---
Patient sat up on side of bed and SpO2 dropped to 81%. Patient slowly recovered to 88%
[2023-04-14 07:57] LABS: ABG PCO2 41.7 mmHg (35.0-45.0); Base Excess ABG 8.1 mmol/L (-2.0-2.0); HCO3 ABG 31.5 mmol/L (22.0-26.0); Oxygen Saturation ABG 90.1 %; PO2 ABG 52.9 mmHg (80.0-100.0); pH ABG 7.486 (7.350-7.450)
[2023-04-14 07:58] LABS: Allen Test POSITIVE (POSITIVE); Fractionated Inspired Oxygen 100 %; Liters per Minute 40; O2 Mode VAPOTHERM; Puncture Site R RADIAL
[2023-04-14 08:18] LABS: Basophils Percent Auto 0.2 % (0.2-2.0); Hematocrit 37.4 % (36.0-48.0); Hemoglobin 12.9 g/dL (12.0-16.0); Immature Granulocytes Abs Auto 0.32 10^3/uL (0.00-0.03); Lymphocytes Absolute Auto 0.5 10^3/uL (1.2-3.8); Lymphocytes Percent Auto 7.2 % (20.5-60.0); Mean Corpuscular HGB Conc 34.5 g/dL (29.9-35.2); Mean Corpuscular Hemoglobin 30.6 pg (26.7-34.0); Mean Corpuscular Volume 88.6 fL (81.0-99.0); Mean Platelet Volume 9.7 fL (9.5-13.5); Monocytes Absolute Auto 0.3 10^3/uL (0.3-0.8); Monocytes Percent Auto 5.1 % (1.7-12.0); Neutrophils Absolute Auto 5.3 10^3/uL (1.4-6.5); Neutrophils Percent Auto 82.5 % (43.0-75.0); Platelet Count 193 10^3/uL (150-450); Red Blood Count 4.22 10^6/uL (4.20-5.40); Red Cell Distribution Width 11.9 % (11.0-15.0); White Blood Count 6.4 10^3/uL (4.0-11.0)
[2023-04-14] MEDS: POTASSIUM CHLORIDE 40 MEQ in 0.9 % SODIUM CHLORIDE 250 ML 67.5 MEQ IV (08:34)
[2023-04-14] MEDS: INSULIN ASPART 300 UNIT/3 ML PEN SUBQ ×3 (08:37→21:34)
--- NOTE | 2023-04-14 08:52 | P.PN_ITS ---
Progress Note: Subjective Subjective Interval history: No real improvement from previous day according to patient - maybe even worse Exam Constitutional Vital Signs - 24 hr 04/13/23 10:04 04/13/23 12:01 04/13/23 12:01 Temperature Pulse Rate 70 80 Respiratory Rate Blood Pressure [Left Arm] Pulse Oximetry 89 L Oxygen Delivery Method Vapotherm Oxygen Delivery Flow Rate 40 Fraction of Inspired Oxygen 70 04/13/23 14:00 04/13/23 14:00 04/13/23 14:38 Temperature 98.4 F Pulse Rate 80 87 Respiratory Rate 24 Blood Pressure [Left Arm] 176/90 H Pulse Oximetry 82 L 86 L Oxygen Delivery Method Vapotherm Vapotherm Oxygen Delivery Flow Rate Fraction of Inspired Oxygen 70 80 04/13/23 14:42 04/13/23 15:03 04/13/23 16:11 Temperature Pulse Rate 76 Respiratory Rate Blood Pressure [Left Arm] Pulse Oximetry 91 L 92 L 95 Oxygen Delivery Method Vapotherm Vapotherm Oxygen Delivery Flow Rate 40 Fraction of Inspired Oxygen 90 90 04/13/23 17:34 04/13/23 18:19 04/13/23 19:31 Temperature Pulse Rate 76 70 Respiratory Rate Blood Pressure [Left Arm] 155/84 H Pulse Oximetry 96 Oxygen Delivery Method Vapotherm Oxygen Delivery Flow Rate 40 Fraction of Inspired Oxygen 90 04/13/23 19:21 04/13/23 19:34 04/13/23 20:03 Temperature Pulse Rate 79 71 75 Respiratory Rate 20 20 Blood Pressure [Left Arm] Pulse Oximetry 93 L 6 L 91 L Oxygen Delivery Method Vapotherm Vapotherm Oxygen Delivery Flow Rate 40 40 Fraction of Inspired Oxygen 85 90 04/13/23 22:01 04/13/23 22:12 04/13/23 23:10 Temperature 97.6 F Pulse Rate 72 72 62 Respiratory Rate 20 16 Blood Pressure [Left Arm] 148/71 H Pulse Oximetry 90 L 90 L 92 L Oxygen Delivery Method Vapotherm Vapotherm Oxygen Delivery Flow Rate 40 40 Fraction of Inspired Oxygen 85 85 04/14/23 00:10 04/14/23 00:00 04/14/23 02:00 Temperature Pulse Rate 68 68 Respiratory Rate Blood Pressure [Left Arm] Pulse Oximetry 86 L 91 L 91 L Oxygen Delivery Method Vapotherm Oxygen Delivery Flow Rate 40 Fraction of Inspired Oxygen 85 04/14/23 03:46 04/14/23 04:00 04/14/23 04:32 Temperature Pulse Rate 65 63 Respiratory Rate 17 Blood Pressure [Left Arm] Pulse Oximetry 92 L 89 L 86 L Oxygen Delivery Method Vapotherm Vapotherm Oxygen Delivery Flow Rate 40 40 Fraction of Inspired Oxygen 90 90 04/14/23 04:45 04/14/23 06:00 04/14/23 06:09 Temperature Pulse Rate 61 63 Respiratory Rate Blood Pressure [Left Arm] Pulse Oximetry 95 97 Oxygen Delivery Method Vapotherm Oxygen Delivery Flow Rate 40 Fraction of Inspired Oxygen 100 04/14/23 06:47 04/14/23 07:24 04/14/23 08:06 Temperature 97.5 F L Pulse Rate 67 68 Respiratory Rate 20 Blood Pressure [Left Arm] 152/7 H Pulse Oximetry 93 L 93 L 89 L Oxygen Delivery Method Vapotherm Oxygen Delivery Flow Rate 40 40 Fraction of Inspired Oxygen 100 Respiratory Effort & inspection: tachypneic and respiratory distress; not able to speak in complete sentences Auscultation: rhonchi Progress Note: Objective Labs Labs: Short CBC 04/14/23 Range/Units 05:10 WBC 6.4 (4.0-11.0) 10^3/uL Hgb 12.9 (12.0-16.0) g/dL Hct 37.4 (36.0-48.0) % Plt Count 193 (150-450) 10^3/uL BMP 04/14/23 05:10 Sodium 142 Potassium 2.9 L* Chloride 104 Carbon Dioxide 30.7 BUN 28.0 H Creatinine 1.07 H Glucose 210 H Calcium 7.9 L Liver Function 04/14/23 Range/Units 05:10 Total Bilirubin 0.4 (0.2-1.0) mg/dL AST 43 H (15-37) U/L ALT 132 H (14-59) U/L Alkaline Phosphatase 65 (46-116) U/L Albumin 2.7 L (3.4-5.0) g/dL Progress Note: A&P Assessment and Plan (1) COVID-19: Plan Sinus tachycardia, respiratory distress, acute hypoxia secondary to residual effect of COVID-19 complicating acute exacerbation of COPD and asthma-has already been treated with Paxlovid, hold off on further antivirals as she is 10 days out from onset of symptoms, continue with Vapotherm, continue with steroids, and antibiotics, add high-dose Zyrtec and Pepcid.? Consult pulmonology -patient with pulmonology-also discussed with patient and she would agree to intubation if necessary Hyperglycemia likely complicated by steroids-Insulin sliding scale-We will need adjusted today- Increase long-acting insulin Hypertension-continue with home medications-Continue to adjust GERD-IV? Pepcid Morbid obesity-diet management Thrombocytopenia likely secondary to the above-monitor daily Acute kidney injury secondary to the above-monitor daily-improved Medical treatment lasting more than 48 hours-we will need inpatient status.
[2023-04-14] MEDS: CETIRIZINE HCL 10 MG TABLET 20 MG PO (09:15)
[2023-04-14] MEDS: AMLODIPINE BESYLATE 5 MG TABLET PO (09:15)
[2023-04-14] MEDS: INSULIN DETEMIR 300 UNIT/3 ML INSULN.PEN 20 UNIT SUBQ ×2 (09:16→21:33)
[2023-04-14] MEDS: CHOLECALCIFEROL (VITAMIN D3) 25 MCG/1,000 UNITS TABLET PO (09:16)
[2023-04-14] MEDS: HYDROCHLOROTHIAZIDE 25 MG TABLET PO (09:16)
[2023-04-14] MEDS: GABAPENTIN 300 MG CAPSULE PO ×2 (09:16→21:30)
[2023-04-14] MEDS: MONTELUKAST SODIUM 10 MG TABLET PO (09:17)
[2023-04-14] MEDS: SOLIFENACIN SUCCINATE 5 MG TABLET PO (09:17)
[2023-04-14] MEDS: MAGNESIUM OXIDE 400 MG TABLET PO (09:17)
[2023-04-14] MEDS: BENZONATATE 100 MG CAPSULE PO (09:18)
[2023-04-14] MEDS: ENOXAPARIN SODIUM 100 MG/ML SYRINGE SUBQ ×2 (09:22→21:28)
[2023-04-14] MEDS: BUMETANIDE 10 MG in 0.9 % SODIUM CHLORIDE 160 ML 20 MG IV (09:30)
--- NOTE | 2023-04-14 10:21 | CM.NOTE ---
Rounds made with Dr. Zepeda. Currently on Vapotherm. No plan for discharge today.
--- NOTE | 2023-04-14 11:06 | PM.PLPN ---
Progress Note: A&P Assessment and Plan (1) COVID-19: Assessment and Plan: 1. Acute viral pneumonia secondary to COVID-19.? Repeat COVID-19 antigen negative, reflex pending... if negative, can remove from isolation. Overall status worsening, inflammatory stage - developing ARDS? Difficulty with expectoration. CXR findings yesterday do not correlate with patient's severity of presentation. Will add Mucomyst to DuoNebs as Mucinex failed to mobilize secretions better. 2. Acute exacerbation of COPD.? Continue bronchodilators, steroids. 3. Acute hypoxic respiratory failure.? Secondary to #1 + #2.? Advancing clinically towards ARDS. Now requiring FiO2 100% on Vapotherm. Next step is BiPAP and then intubation. Patient has been proning. 4. Oral candidiasis. Secondary to steroids (systemic and inhaled) + antibiotics.? Continue nystatin for now. 5. Coronary artery disease.? Patient denies any chest pain. 6. Obesity with BMI 37.4.? Inducing a restrictive pulmonary physiology. Weight loss advised. Overall respiratory status worsening. ABG does not show any significant hypercapnia. Has degree of alkalosis secondary to hypoxia (increased RR). Would monitor SpO2 opposed to repeating ABG at this time. Discussed with patient as she is feeling tired if she wants to go on the ventilator, but she is not ready for that. BiPAP is on standby. Patient needs close monitoring. She was placed on Bumex gtt. As she desaturates with just sitting up at the side of the bed, I ordered a urine Vega for I/O and to decrease desaturation events. Subjective Subjective Interval history: Patient continues to do worse. FiO2 now up to 100% on Vapotherm with labile saturations (~88-90%). Any little movement can cause a desaturation. Patient states she is becoming tired. Still having difficulty mobilizing secretions. Denies any chest pain. No hemoptysis. ABG shows respiratory alkalosis and severe hypoxic respiratory failure. Discussed with RN & RT. Exam Constitutional Vital Signs - 24 hr 04/13/23 12:01 04/13/23 12:01 04/13/23 14:00 Temperature Pulse Rate 80 80 Respiratory Rate Blood Pressure [Left Arm] Pulse Oximetry 89 L Oxygen Delivery Method Vapotherm Oxygen Delivery Flow Rate 40 Fraction of Inspired Oxygen 70 04/13/23 14:00 04/13/23 14:38 04/13/23 14:42 Temperature 98.4 F Pulse Rate 87 Respiratory Rate 24 Blood Pressure [Left Arm] 176/90 H Pulse Oximetry 82 L 86 L 91 L Oxygen Delivery Method Vapotherm Vapotherm Vapotherm Oxygen Delivery Flow Rate Fraction of Inspired Oxygen 70 80 90 04/13/23 15:03 04/13/23 16:11 04/13/23 17:34 Temperature Pulse Rate 76 76 Respiratory Rate Blood Pressure [Left Arm] Pulse Oximetry 92 L 95 Oxygen Delivery Method Vapotherm Oxygen Delivery Flow Rate 40 Fraction of Inspired Oxygen 90 04/13/23 18:19 04/13/23 19:31 04/13/23 19:21 Temperature Pulse Rate 70 79 Respiratory Rate 20 Blood Pressure [Left Arm] 155/84 H Pulse Oximetry 96 93 L Oxygen Delivery Method Vapotherm Vapotherm Oxygen Delivery Flow Rate 40 40 Fraction of Inspired Oxygen 90 85 04/13/23 19:34 04/13/23 20:03 04/13/23 22:01 Temperature Pulse Rate 71 75 72 Respiratory Rate 20 Blood Pressure [Left Arm] Pulse Oximetry 6 L 91 L 90 L Oxygen Delivery Method Vapotherm Oxygen Delivery Flow Rate 40 Fraction of Inspired Oxygen 90 04/13/23 22:12 04/13/23 23:10 04/14/23 00:10 Temperature 97.6 F Pulse Rate 72 62 Respiratory Rate 20 16 Blood Pressure [Left Arm] 148/71 H Pulse Oximetry 90 L 92 L 86 L Oxygen Delivery Method Vapotherm Vapotherm Vapotherm Oxygen Delivery Flow Rate 40 40 40 Fraction of Inspired Oxygen 85 85 85 04/14/23 00:00 04/14/23 02:00 04/14/23 03:46 Temperature Pulse Rate 68 68 65 Respiratory Rate 17 Blood Pressure [Left Arm] Pulse Oximetry 91 L 91 L 92 L Oxygen Delivery Method Vapotherm Oxygen Delivery Flow Rate 40 Fraction of Inspired Oxygen 90 04/14/23 04:00 04/14/23 04:32 04/14/23 04:45 Temperature Pulse Rate 63 Respiratory Rate Blood Pressure [Left Arm] Pulse Oximetry 89 L 86 L 95 Oxygen Delivery Method Vapotherm Vapotherm Oxygen Delivery Flow Rate 40 40 Fraction of Inspired Oxygen 90 100 04/14/23 06:00 04/14/23 06:09 04/14/23 06:47 Temperature 97.5 F L Pulse Rate 61 63 67 Respiratory Rate 20 Blood Pressure [Left Arm] 152/7 H Pulse Oximetry 97 93 L Oxygen Delivery Method Vapotherm Oxygen Delivery Flow Rate 40 Fraction of Inspired Oxygen 04/14/23 07:24 04/14/23 08:06 04/14/23 09:52 Temperature Pulse Rate 68 75 Respiratory Rate Blood Pressure [Left Arm] Pulse Oximetry 93 L 89 L 95 Oxygen Delivery Method Oxygen Delivery Flow Rate 40 Fraction of Inspired Oxygen 100 Documenting provider has reviewed patient's vital signs: yes Common normals: apparent distress (Mild tachypnea) HENMT Other: Wearing Vapotherm nasal cannula Chest Common normals: inspection of chest normal Chest: symmetrical chest wall rise Respiratory Other: Continues to hvae diffuse rhonchi both audible and palpable. No wheezes. Cardio Rate: regular rate Rhythm: regular rhythm GI Common normals: soft to palpation and non-tender Extremity Common normals: no clubbing, cyanosis or edema Neuro Sensorium/orientation: awake and alert Psych Common normals: mental status grossly normal
--- NOTE | 2023-04-14 11:23 | RESP.RT ---
nasal prongs sitting outside of nares, applied correctly; H20 changed
[2023-04-14] MEDS: FAMOTIDINE/PF 20 MG/2 ML VIAL IV (13:51)
[2023-04-14 15:21] LABS: SARS-CoV-2 NAA NOT DETECTED (NOT DETECTE)
[2023-04-14] MEDS: ACETYLCYSTEINE 400 MG/4 ML VIAL 200 MG IH ×3 (16:10→22:51)
[2023-04-14] MEDS: POTASSIUM CHLORIDE 10 MEQ ER TABLET 20 MEQ PO ×2 (18:25→21:30)
[2023-04-14] MEDS: ACETAMINOPHEN 325 MG TABLET 650 MG PO (21:29)
[2023-04-14] MEDS: TRAZODONE HCL 50 MG TABLET PO (21:30)
[2023-04-14] MEDS: BACLOFEN 10 MG TABLET 5 MG PO (21:30)
[2023-04-14] MEDS: PAROXETINE HCL 20 MG TABLET PO (21:31)
[2023-04-15] VITALS (19 sets, daily range): BP systolic 104–145; BP diastolic 63–79; PULSE 61–88; RESP 18–22; TEMP 36.4–36.9; O2SAT 89–97
[2023-04-15] MEDS: IPRATROPIUM/ALBUTEROL SULFATE 3 ML AMPUL.NEB IH ×6 (03:55→22:48)
[2023-04-15] MEDS: ACETYLCYSTEINE 400 MG/4 ML VIAL 200 MG IH ×6 (03:55→22:48)
--- NOTE | 2023-04-15 06:57 | SUR.HOLD ---
pt. on vapo therm 40L/ 100%
[2023-04-15 07:54] LABS: Alanine Aminotransferase 166 U/L (14-59); Albumin Globulin Ratio 0.9; Albumin Level 3.1 g/dL (3.4-5.0); Alkaline Phosphatase 67 U/L (46-116); Anion Gap 8.2; Aspartate Amino Transferase 44 U/L (15-37); Bilirubin Total 0.4 mg/dL (0.2-1.0); Carbon Dioxide 41.3 mmol/L (21.0-32.0); Chloride 94 mmol/L (98-107); Estimated GFR (African America 46 (>=60); Estimated GFR (Non-African Ame 38 (>=60); Globulin 3.5 g/dL; Glucose 167 mg/dL (74-106); Sodium 141 mmol/L (136-145); Total Protein 6.6 g/dL (6.4-8.2)
[2023-04-15 07:58] LABS: Potassium 2.5 mmol/L (3.5-5.1)
[2023-04-15 08:01] LABS: Basophils Percent Auto 0.3 % (0.2-2.0); Hematocrit 43.3 % (36.0-48.0); Hemoglobin 14.9 g/dL (12.0-16.0); Immature Granulocytes Abs Auto 0.38 10^3/uL (0.00-0.03); Immature Granulocytes Pct Auto 3.2 % (0.0-0.5); Lymphocytes Absolute Auto 0.8 10^3/uL (1.2-3.8); Lymphocytes Percent Auto 6.3 % (20.5-60.0); Mean Corpuscular HGB Conc 34.4 g/dL (29.9-35.2); Mean Corpuscular Hemoglobin 30.2 pg (26.7-34.0); Mean Corpuscular Volume 87.7 fL (81.0-99.0); Mean Platelet Volume 9.4 fL (9.5-13.5); Monocytes Percent Auto 8.8 % (1.7-12.0); Neutrophils Absolute Auto 9.6 10^3/uL (1.4-6.5); Neutrophils Percent Auto 81.4 % (43.0-75.0); Platelet Count 241 10^3/uL (150-450); Red Blood Count 4.94 10^6/uL (4.20-5.40); Red Cell Distribution Width 11.8 % (11.0-15.0); White Blood Count 11.8 10^3/uL (4.0-11.0)
[2023-04-15] MEDS: METHYLPREDNISOLONE SOD SUCC PF 125 MG/2 ML VIAL IVP (09:29)
[2023-04-15] MEDS: SOLIFENACIN SUCCINATE 5 MG TABLET PO (09:30)
[2023-04-15] MEDS: ENOXAPARIN SODIUM 100 MG/ML SYRINGE SUBQ (09:30)
[2023-04-15] MEDS: FAMOTIDINE/PF 20 MG/2 ML VIAL IV (09:30)
[2023-04-15] MEDS: MONTELUKAST SODIUM 10 MG TABLET PO (09:30)
[2023-04-15] MEDS: INSULIN DETEMIR 300 UNIT/3 ML INSULN.PEN 20 UNIT SUBQ ×2 (09:30→20:48)
[2023-04-15] MEDS: GABAPENTIN 300 MG CAPSULE PO ×2 (09:31→20:46)
[2023-04-15] MEDS: CHOLECALCIFEROL (VITAMIN D3) 25 MCG/1,000 UNITS TABLET PO (09:31)
[2023-04-15] MEDS: MAGNESIUM OXIDE 400 MG TABLET PO (09:31)
[2023-04-15] MEDS: HYDROCHLOROTHIAZIDE 25 MG TABLET PO (09:31)
[2023-04-15] MEDS: AMLODIPINE BESYLATE 5 MG TABLET PO (09:32)
[2023-04-15] MEDS: CETIRIZINE HCL 10 MG TABLET 20 MG PO (09:32)
[2023-04-15] MEDS: LEVOFLOXACIN IN DEXTROSE 5 % 750 MG/150 ML IV.SOLN 100 MG IV (09:33)
[2023-04-15] MEDS: 0.9 % SODIUM CHLORIDE 250 ML 100 ML IV (10:33)
[2023-04-15] MEDS: POTASSIUM CHLORIDE 40 MEQ in 0.9 % SODIUM CHLORIDE 250 ML 67.5 MEQ IV (11:41)
[2023-04-15] MEDS: INSULIN ASPART 300 UNIT/3 ML PEN SUBQ ×3 (12:22→20:49)
[2023-04-15] MEDS: NYSTATIN 500,000 UNIT/5 ML ORAL.SUSP 500000 UNIT PO ×3 (12:22→20:45)
--- NOTE | 2023-04-15 14:26 | PM.IMPN1 ---
Progress Note: A&P Assessment and Plan (1) COVID-19: Assessment and Plan: Was treated for Paxlovid and oral Decadron as outpatient. Admitted for worsening respiratory failure with hypoxia. Currently on 100 % FiO2. Has poorly controlled, severe persistent asthma at baseline. (2) Hypertension: Assessment and Plan: d/c HCTZ. C/w amlodipine. At goal Qualifiers: Hypertension type: primary hypertension Qualified Code(s): I10 - Essential (primary) hypertension (3) Chronic low back pain: Assessment and Plan: On gabapentin. C/w same Qualifiers: Back pain laterality: midline Sciatica presence: without sciatica Qualified Code(s): M54.50 - Low back pain, unspecified; G89.29 - Other chronic pain (4) Asthma with acute exacerbation: Assessment and Plan: Severe persistent asthma at baseline. On trelegy as outpatient. Currently on mucomyst, mucinex, solumedrol and duonebs. Still requiring 100 % FiO2 on high flow O2. Qualifiers: Asthma severity: severe Asthma persistence: persistent Qualified Code(s): J45.51 - Severe persistent asthma with (acute) exacerbation (5) Respiratory failure with hypoxia: Assessment and Plan: no resp distress. Appears comfortable. But persistent and severe hypoxemia. C/w current treatment. Suspect she is developing ARDS from COVID. Close monitoring needed and at high risk of poor prognosis and clinical worsening. Qualifiers: Chronicity: acute Qualified Code(s): J96.01 - Acute respiratory failure with hypoxia (6) Depression: Assessment and Plan: C/w Trazodone and Paxil Qualifiers: Depression Type: major depressive disorder Major depression recurrence: recurrent Active/Remission status: in full remission Qualified Code(s): F33.42 - Major depressive disorder, recurrent, in full remission (7) Hypokalemia: Assessment and Plan: severe. Started on oral potassium 40 TID. Also received IV potassium Recheck (8) JEANNE (acute kidney injury): Assessment and Plan: From diuresis and clinically she appears very dry. Started on LR. (9) Dehydration determined by examination: Assessment and Plan: Poor PO intake, and somewhat worsened with diuresis in an attempt to improve her resp status. Started on IVF. Internal Medicine - PN: Subj Subjective Interval history: Seen and examined. No overnight events. Still requiring 100% FiO2 on High flow. Patient reports feeling more or less the same. Exam Constitutional Vital Signs - 24 hr 04/14/23 16:08 04/14/23 16:21 04/14/23 18:47 Temperature Pulse Rate 71 77 Respiratory Rate Blood Pressure [Left Arm] Blood Pressure [Right Arm] Pulse Oximetry 89 L 90 L 92 L Oxygen Delivery Method Vapotherm Oxygen Delivery Flow Rate 40 Fraction of Inspired Oxygen 100 04/14/23 19:46 04/14/23 19:38 04/14/23 19:38 Temperature Pulse Rate 80 78 Respiratory Rate 18 Blood Pressure [Left Arm] Blood Pressure [Right Arm] Pulse Oximetry 93 L 93 L Oxygen Delivery Method Vapotherm Vapotherm Oxygen Delivery Flow Rate 40 40 Fraction of Inspired Oxygen 100 100 04/14/23 21:52 04/14/23 21:54 04/14/23 22:00 Temperature 97.4 F L Pulse Rate 66 69 Respiratory Rate 20 Blood Pressure [Left Arm] 90/56 L Blood Pressure [Right Arm] Pulse Oximetry 91 L 90 L Oxygen Delivery Method Oxygen Delivery Flow Rate Fraction of Inspired Oxygen 04/14/23 22:51 04/14/23 23:54 04/15/23 01:56 Temperature Pulse Rate 61 69 63 Respiratory Rate 18 Blood Pressure [Left Arm] Blood Pressure [Right Arm] Pulse Oximetry 91 L 95 89 L Oxygen Delivery Method Vapotherm Oxygen Delivery Flow Rate 40 Fraction of Inspired Oxygen 100 04/15/23 04:00 04/15/23 03:55 04/15/23 03:55 Temperature Pulse Rate 66 61 Respiratory Rate 18 Blood Pressure [Left Arm] Blood Pressure [Right Arm] Pulse Oximetry 89 L 90 L Oxygen Delivery Method Vapotherm Oxygen Delivery Flow Rate 40 Fraction of Inspired Oxygen 100 04/15/23 06:00 04/15/23 06:00 04/15/23 07:45 Temperature 97.5 F L Pulse Rate 66 69 Respiratory Rate 20 Blood Pressure [Left Arm] Blood Pressure [Right Arm] 104/63 Pulse Oximetry 91 L 91 L 90 L Oxygen Delivery Method Nasal Cannula Vapotherm Oxygen Delivery Flow Rate 40 40 Fraction of Inspired Oxygen 100 04/15/23 08:08 04/15/23 10:03 04/15/23 11:51 Temperature Pulse Rate 79 70 73 Respiratory Rate Blood Pressure [Left Arm] Blood Pressure [Right Arm] Pulse Oximetry 90 L 92 L 89 L Oxygen Delivery Method Oxygen Delivery Flow Rate Fraction of Inspired Oxygen 04/15/23 11:00 04/15/23 13:56 Temperature Pulse Rate 75 Respiratory Rate Blood Pressure [Left Arm] Blood Pressure [Right Arm] Pulse Oximetry 90 L Oxygen Delivery Method Vapotherm Oxygen Delivery Flow Rate 40 Fraction of Inspired Oxygen 100 Documenting provider has reviewed patient's vital signs: yes Common normals: oriented x3 Nutritional appearance: obese Orientation/consciousness: Yes awake Other: appears sick and tired HENMT Common normals: normocephalic and head/scalp atraumatic Eye Common normals: conjunctivae normal and no scleral icterus Respiratory Other: Normal RR, diminished air entry. Lungs appear bronchospastic. No crackles, wheezing Cardio Common normals: regular rhythm, S1 normal heart sound and S2 normal heart sound GI Common normals: Normal to inspection, nondistended, normoactive bowel sounds present Neuro Common normals: oriented x3, moves all extremities and no focal motor deficits Psych Common normals: mental status grossly normal, thought process normal, denies homicidal ideation and denies suicidal ideation Internal Medicine - PN: Obj Da Labs Labs: Laboratory Results - last 24 hr 04/13/23 04/15/23 16:40 07:25 WBC 11.8 H RBC 4.94 Hgb 14.9 Hct 43.3 MCV 87.7 MCH 30.2 MCHC 34.4 RDW 11.8 Plt Count 241 MPV 9.4 L Neut % (Auto) 81.4 H Lymph % (Auto) 6.3 L Bandera % (Auto) 8.8 Eos % (Auto) 0.0 L Baso % (Auto) 0.3 Neut # (Auto) 9.6 H Lymph # (Auto) 0.8 L Bandera # (Auto) 1.0 H Eos # (Auto) 0.0 Baso # (Auto) 0.0 Abs Immat Gran (auto) 0.38 H Imm/Tot Granulo (auto) 3.2 H Sodium 141 Potassium 2.5 L* Chloride 94 L Carbon Dioxide 41.3 H Anion Gap 8.2 BUN 40.0 H Creatinine 1.38 H Est GFR ( Amer) 46 L Est GFR (Non-Af Amer) 38 L BUN/Creatinine Ratio 29.0 Glucose 167 H Calcium 8.0 L Total Bilirubin 0.4 AST 44 H ALT 166 H Alkaline Phosphatase 67 Total Protein 6.6 Albumin 3.1 L Globulin 3.5 Albumin/Globulin Ratio 0.9 SARS-CoV-2 RNA (KAYLEE) Not detected Urinary Catheter Management Urinary Catheter Management Urethral: Cath placed during this visit: yes Urethral indwelling: No Reason for continuing: other continuation reason Insertion date: 04/14/23 Insertion time: 11:59
[2023-04-15 15:44] LABS: Anion Gap 10.7; BUN Creatinine Ratio 24.2; Calcium 7.9 mg/dL (8.5-10.1); Carbon Dioxide 35.6 mmol/L (21.0-32.0); Chloride 94 mmol/L (98-107); Estimated GFR (African America 40 (>=60); Estimated GFR (Non-African Ame 33 (>=60); Glucose 240 mg/dL (74-106); Potassium 3.3 mmol/L (3.5-5.1); Sodium 137 mmol/L (136-145)
[2023-04-15] MEDS: LACTATED RINGER'S SOLUTION 1,000 ML 125 ML IV (16:23)
[2023-04-15] MEDS: METHYLPREDNISOLONE SOD SUCC PF 40 MG/ML VIAL 60 MG IVP (17:15)
[2023-04-15] MEDS: GUAIFENESIN 600 MG TAB.ER.12H PO (17:15)
[2023-04-15] MEDS: ACETAMINOPHEN 325 MG TABLET 650 MG PO (20:41)
[2023-04-15] MEDS: TRAZODONE HCL 50 MG TABLET PO (20:45)
[2023-04-15] MEDS: PAROXETINE HCL 20 MG TABLET PO (20:45)
[2023-04-15] MEDS: BACLOFEN 10 MG TABLET 5 MG PO (20:46)
[2023-04-15] MEDS: POTASSIUM CHLORIDE 10 MEQ ER TABLET 40 MEQ PO (20:47)
--- NOTE | 2023-04-15 21:07 | PC.NURSE ---
40L at 100%
--- NOTE | 2023-04-15 22:53 | RESP.RT ---
decreased fio2 to 95%
[2023-04-16] VITALS (24 sets, daily range): BP systolic 113–146; BP diastolic 66–73; PULSE 56–101; RESP 18–24; TEMP 36.6–37.8; O2SAT 88–97
[2023-04-16] MEDS: IPRATROPIUM/ALBUTEROL SULFATE 3 ML AMPUL.NEB IH ×6 (03:52→23:13)
[2023-04-16] MEDS: ACETYLCYSTEINE 400 MG/4 ML VIAL 200 MG IH ×6 (03:52→23:13)
[2023-04-16 05:10] LABS: Basophils Percent Auto 0.2 % (0.2-2.0); Hematocrit 39.9 % (36.0-48.0); Hemoglobin 13.8 g/dL (12.0-16.0); Immature Granulocytes Abs Auto 0.26 10^3/uL (0.00-0.03); Immature Granulocytes Pct Auto 2.9 % (0.0-0.5); Lymphocytes Absolute Auto 0.6 10^3/uL (1.2-3.8); Lymphocytes Percent Auto 6.7 % (20.5-60.0); Mean Corpuscular HGB Conc 34.6 g/dL (29.9-35.2); Mean Corpuscular Hemoglobin 30.2 pg (26.7-34.0); Mean Corpuscular Volume 87.3 fL (81.0-99.0); Mean Platelet Volume 9.3 fL (9.5-13.5); Monocytes Absolute Auto 0.6 10^3/uL (0.3-0.8); Monocytes Percent Auto 6.4 % (1.7-12.0); Neutrophils Absolute Auto 7.5 10^3/uL (1.4-6.5); Neutrophils Percent Auto 83.8 % (43.0-75.0); Platelet Count 173 10^3/uL (150-450); Red Blood Count 4.57 10^6/uL (4.20-5.40); Red Cell Distribution Width 11.6 % (11.0-15.0); White Blood Count 8.9 10^3/uL (4.0-11.0)
[2023-04-16] MEDS: METHYLPREDNISOLONE SOD SUCC PF 40 MG/ML VIAL 60 MG IVP (05:21)
[2023-04-16 05:34] LABS: Alanine Aminotransferase 124 U/L (14-59); Albumin Globulin Ratio 0.8; Albumin Level 2.6 g/dL (3.4-5.0); Alkaline Phosphatase 59 U/L (46-116); Anion Gap 4.4; Aspartate Amino Transferase 28 U/L (15-37); BUN Creatinine Ratio 29.2; Bilirubin Total 0.5 mg/dL (0.2-1.0); Calcium 7.9 mg/dL (8.5-10.1); Carbon Dioxide 39.7 mmol/L (21.0-32.0); Chloride 98 mmol/L (98-107); Estimated GFR (African America >60 (>=60); Estimated GFR (Non-African Ame 52 (>=60); Globulin 3.1 g/dL; Glucose 158 mg/dL (74-106); Potassium 3.1 mmol/L (3.5-5.1); Sodium 139 mmol/L (136-145); Total Protein 5.7 g/dL (6.4-8.2)
[2023-04-16] MEDS: GUAIFENESIN 600 MG TAB.ER.12H PO ×2 (05:48→17:32)
[2023-04-16] MEDS: NYSTATIN 500,000 UNIT/5 ML ORAL.SUSP 500000 UNIT PO ×4 (05:49→21:00)
[2023-04-16] MEDS: POTASSIUM CHLORIDE 10 MEQ ER TABLET 40 MEQ PO ×2 (05:49→21:01)
[2023-04-16] MEDS: HEPARIN SODIUM (PORCINE) 5,000 UNIT/ML VIAL 5000 UNIT SUBQ ×3 (05:49→21:01)
--- NOTE | 2023-04-16 06:30 | PC.NURSE ---
40L/ 95%
[2023-04-16] MEDS: INSULIN DETEMIR 300 UNIT/3 ML INSULN.PEN 20 UNIT SUBQ ×2 (09:17→21:06)
[2023-04-16] MEDS: SOLIFENACIN SUCCINATE 5 MG TABLET PO (09:18)
[2023-04-16] MEDS: LACTATED RINGER'S SOLUTION 1,000 ML 125 ML IV (09:18)
[2023-04-16] MEDS: MAGNESIUM OXIDE 400 MG TABLET PO (09:19)
[2023-04-16] MEDS: AMLODIPINE BESYLATE 5 MG TABLET PO (09:19)
[2023-04-16] MEDS: MONTELUKAST SODIUM 10 MG TABLET PO (09:19)
[2023-04-16] MEDS: OMEPRAZOLE 40 MG CAPSULE.DR PO (09:19)
[2023-04-16] MEDS: CHOLECALCIFEROL (VITAMIN D3) 25 MCG/1,000 UNITS TABLET PO (09:20)
[2023-04-16] MEDS: CETIRIZINE HCL 10 MG TABLET 20 MG PO (09:20)
[2023-04-16] MEDS: GABAPENTIN 300 MG CAPSULE PO ×2 (09:20→21:00)
--- NOTE | 2023-04-16 13:07 | P.IMPN_ITS ---
Progress Note: A&P Assessment and Plan (1) COVID-19: Assessment and Plan: Slowly improving. Now on 90% FiO2 (2) Hypertension: Assessment and Plan: C/w amlodipine. At goal HCTZ on hold Qualifiers: Hypertension type: primary hypertension Qualified Code(s): I10 - Essential (primary) hypertension (3) Chronic low back pain: Assessment and Plan: On gabapentin. C/w same Qualifiers: Back pain laterality: midline Sciatica presence: without sciatica Qualified Code(s): M54.50 - Low back pain, unspecified; G89.29 - Other chronic pain (4) Asthma with acute exacerbation: Assessment and Plan: Severe persistent asthma at baseline. On trelegy as outpatient. Currently on mucomyst, mucinex, solumedrol and duonebs. Slightly better today. On 90% FiO2 Qualifiers: Asthma severity: severe Asthma persistence: persistent Qualified Code(s): J45.51 - Severe persistent asthma with (acute) exacerbation (5) Respiratory failure with hypoxia: Assessment and Plan: no resp distress. Appears comfortable. But persistent and severe hypoxemia. C/w current treatment. Suspect she is developing ARDS from COVID. Close monitoring needed and at high risk of poor prognosis and clinical worsening. Encouraged prone positioning Qualifiers: Chronicity: acute Qualified Code(s): J96.01 - Acute respiratory failure with hypoxia (6) Depression: Assessment and Plan: C/w Trazodone and Paxil Qualifiers: Depression Type: major depressive disorder Major depression recurrence: recurrent Active/Remission status: in full remission Qualified Code(s): F33.42 - Major depressive disorder, recurrent, in full remission (7) Hypokalemia: Assessment and Plan: Improved. C/w oral potassium (8) JEANNE (acute kidney injury): Assessment and Plan: likely from diuresis. resolved with IV hydration (9) Dehydration determined by examination: Assessment and Plan: Improved with IV hydration. Poor Po intake. C/w slow/attila hydration Internal Medicine - PN: Subj Subjective Interval history: Seen and examined. No overnight events. Feel slightly better. FiO2 down to 90% Exam Constitutional Vital Signs - 24 hr 04/15/23 13:56 04/15/23 14:30 04/15/23 15:49 Temperature 98.4 F Pulse Rate 75 70 72 Respiratory Rate 22 22 Blood Pressure Blood Pressure [Left Arm] Blood Pressure [Right Arm] 145/69 H Pulse Oximetry 91 L 94 L Oxygen Delivery Method Vapotherm Vapotherm Oxygen Delivery Flow Rate 40 40 Fraction of Inspired Oxygen 100 100 04/15/23 16:06 04/15/23 18:10 04/15/23 19:36 Temperature Pulse Rate 77 74 67 Respiratory Rate 18 Blood Pressure Blood Pressure [Left Arm] Blood Pressure [Right Arm] Pulse Oximetry 94 L 93 L 94 L Oxygen Delivery Method Vapotherm Oxygen Delivery Flow Rate 40 Fraction of Inspired Oxygen 100 04/15/23 20:00 04/15/23 21:00 04/15/23 22:00 Temperature 97.6 F Pulse Rate 88 71 68 Respiratory Rate 18 Blood Pressure Blood Pressure [Left Arm] 139/79 H Blood Pressure [Right Arm] Pulse Oximetry 94 L 92 L 97 Oxygen Delivery Method Nasal Cannula Oxygen Delivery Flow Rate 40 Fraction of Inspired Oxygen 04/15/23 22:00 04/15/23 22:51 04/16/23 00:00 Temperature Pulse Rate 69 72 Respiratory Rate 18 Blood Pressure Blood Pressure [Left Arm] Blood Pressure [Right Arm] Pulse Oximetry 97 96 95 Oxygen Delivery Method Vapotherm Oxygen Delivery Flow Rate 40 Fraction of Inspired Oxygen 100 04/16/23 02:00 04/16/23 03:54 04/16/23 04:00 Temperature Pulse Rate 66 56 L 63 Respiratory Rate 18 Blood Pressure Blood Pressure [Left Arm] Blood Pressure [Right Arm] Pulse Oximetry 90 L 91 L 92 L Oxygen Delivery Method Vapotherm Oxygen Delivery Flow Rate 40 Fraction of Inspired Oxygen 95 04/16/23 06:00 04/16/23 06:00 04/16/23 07:28 Temperature 97.9 F Pulse Rate 64 69 Respiratory Rate 18 Blood Pressure Blood Pressure [Left Arm] Blood Pressure [Right Arm] 133/73 H Pulse Oximetry 93 L 90 L 97 Oxygen Delivery Method Room Air Vapotherm Oxygen Delivery Flow Rate 40 Fraction of Inspired Oxygen 95 04/16/23 08:05 04/16/23 09:19 04/16/23 09:28 Temperature Pulse Rate 65 Respiratory Rate Blood Pressure 135/72 H Blood Pressure [Left Arm] Blood Pressure [Right Arm] Pulse Oximetry 91 L 91 L Oxygen Delivery Method Vapotherm Oxygen Delivery Flow Rate 40 Fraction of Inspired Oxygen 90 04/16/23 10:10 04/16/23 10:46 04/16/23 11:50 Temperature Pulse Rate 71 66 Respiratory Rate Blood Pressure Blood Pressure [Left Arm] Blood Pressure [Right Arm] Pulse Oximetry 96 90 L 93 L Oxygen Delivery Method Oxygen Delivery Flow Rate 40 Fraction of Inspired Oxygen 90 Documenting provider has reviewed patient's vital signs: yes Common normals: oriented x3 Nutritional appearance: obese Orientation/consciousness: Yes awake Other: appears sick and tired HENMT Common normals: normocephalic and head/scalp atraumatic Eye Common normals: conjunctivae normal and no scleral icterus Respiratory Other: Normal RR, diminished air entry but improved aeration from before. Coarse breath sounds. Cardio Common normals: regular rhythm, S1 normal heart sound and S2 normal heart sound GI Common normals: Normal to inspection, nondistended, normoactive bowel sounds present Neuro Common normals: oriented x3, moves all extremities and no focal motor deficits Psych Common normals: mental status grossly normal, thought process normal, denies homicidal ideation and denies suicidal ideation Internal Medicine - PN: Obj Da Labs Labs: Laboratory Results - last 24 hr 04/15/23 04/16/23 15:28 04:52 WBC 8.9 RBC 4.57 Hgb 13.8 Hct 39.9 MCV 87.3 MCH 30.2 MCHC 34.6 RDW 11.6 Plt Count 173 MPV 9.3 L Neut % (Auto) 83.8 H Lymph % (Auto) 6.7 L [place] % (Auto) 6.4 Eos % (Auto) 0.0 L Baso % (Auto) 0.2 Neut # (Auto) 7.5 H Lymph # (Auto) 0.6 L [place] # (Auto) 0.6 Eos # (Auto) 0.0 Baso # (Auto) 0.0 Abs Immat Gran (auto) 0.26 H Imm/Tot Granulo (auto) 2.9 H Sodium 137 139 Potassium 3.3 L 3.1 L Chloride 94 L 98 Carbon Dioxide 35.6 H 39.7 H Anion Gap 10.7 4.4 BUN 38.0 H 31.0 H Creatinine 1.57 H 1.06 H Est GFR ( Amer) 40 L >60 Est GFR (Non-Af Amer) 33 L 52 L BUN/Creatinine Ratio 24.2 29.2 Glucose 240 H 158 H Calcium 7.9 L 7.9 L Total Bilirubin 0.5 AST 28 ALT 124 H Alkaline Phosphatase 59 Total Protein 5.7 L Albumin 2.6 L Globulin 3.1 Albumin/Globulin Ratio 0.8 Urinary Catheter Management Urinary Catheter Management Urethral: Cath placed during this visit: yes Urethral indwelling: No Reason for continuing: other continuation reason Insertion date: 04/14/23 Insertion time: 11:59
[2023-04-16] MEDS: ACETAMINOPHEN 325 MG TABLET 650 MG PO (14:30)
[2023-04-16] MEDS: METHYLPREDNISOLONE SOD SUCC PF 125 MG/2 ML VIAL 60 MG IVP (17:31)
[2023-04-16 20:31] LABS: Glucometer 249 mg/dL (74-106)
[2023-04-16] MEDS: BACLOFEN 10 MG TABLET 5 MG PO (21:00)
[2023-04-16] MEDS: TRAZODONE HCL 50 MG TABLET PO (21:01)
[2023-04-16] MEDS: PAROXETINE HCL 20 MG TABLET PO (21:02)
[2023-04-16] MEDS: INSULIN ASPART 300 UNIT/3 ML PEN SUBQ (21:02)
--- NOTE | 2023-04-16 23:18 | RESP.RT ---
decreased fio2 to 85%
[2023-04-17] VITALS (172 sets, daily range): BP systolic 124–151; BP diastolic 54–90; PULSE 52–107; RESP 0–34; TEMP 36.5–37.1; O2SAT 77–97; BMI 37.4
[2023-04-17] MEDS: ACETYLCYSTEINE 400 MG/4 ML VIAL 200 MG IH ×6 (02:18→22:55)
[2023-04-17] MEDS: IPRATROPIUM/ALBUTEROL SULFATE 3 ML AMPUL.NEB IH ×6 (02:18→22:54)
[2023-04-17] MEDS: METHYLPREDNISOLONE SOD SUCC PF 125 MG/2 ML VIAL 60 MG IVP ×3 (02:21→17:31)
--- NOTE | 2023-04-17 04:53 | PC.NURSE ---
Pt's SPO2 at 77% on 85% vapotherm increased to 90% SPO2 82% then increased to 100% vapotherm SPO2 82% respiratory called to room. Patient is prone and deep breathing and coughing.
--- NOTE | 2023-04-17 05:05 | PC.NURSE ---
patient placed on back sitting up SPO2 increased to 89% on 100% vapotherm. Pt. doing pep and deep breathing and coughing
[2023-04-17 05:07] LABS: Basophils Percent Auto 0.2 % (0.2-2.0); Hematocrit 39.5 % (36.0-48.0); Hemoglobin 13.3 g/dL (12.0-16.0); Immature Granulocytes Abs Auto 0.19 10^3/uL (0.00-0.03); Immature Granulocytes Pct Auto 1.8 % (0.0-0.5); Lymphocytes Absolute Auto 0.5 10^3/uL (1.2-3.8); Lymphocytes Percent Auto 4.7 % (20.5-60.0); Mean Corpuscular HGB Conc 33.7 g/dL (29.9-35.2); Mean Corpuscular Hemoglobin 30.4 pg (26.7-34.0); Mean Corpuscular Volume 90.2 fL (81.0-99.0); Mean Platelet Volume 9.6 fL (9.5-13.5); Monocytes Absolute Auto 0.5 10^3/uL (0.3-0.8); Monocytes Percent Auto 4.5 % (1.7-12.0); Neutrophils Absolute Auto 9.2 10^3/uL (1.4-6.5); Neutrophils Percent Auto 88.8 % (43.0-75.0); Platelet Count 165 10^3/uL (150-450); Red Blood Count 4.38 10^6/uL (4.20-5.40); Red Cell Distribution Width 11.7 % (11.0-15.0); White Blood Count 10.4 10^3/uL (4.0-11.0)
[2023-04-17 05:23] LABS: Alanine Aminotransferase 121 U/L (14-59); Albumin Globulin Ratio 0.8; Albumin Level 2.5 g/dL (3.4-5.0); Alkaline Phosphatase 66 U/L (46-116); Anion Gap 6.7; Aspartate Amino Transferase 29 U/L (15-37); BUN Creatinine Ratio 32.6; Bilirubin Total 0.4 mg/dL (0.2-1.0); Calcium 7.9 mg/dL (8.5-10.1); Carbon Dioxide 35.7 mmol/L (21.0-32.0); Chloride 101 mmol/L (98-107); Estimated GFR (African America >60 (>=60); Estimated GFR (Non-African Ame >60 (>=60); Glucose 192 mg/dL (74-106); Potassium 4.4 mmol/L (3.5-5.1); Sodium 139 mmol/L (136-145); Total Protein 5.5 g/dL (6.4-8.2)
--- NOTE | 2023-04-17 06:07 | PC.NURSE ---
Patient decreased oxygen level to 82% max. on vapotherm @100%. Patient c/o SOB, has a weak harsh cough. Patient transferred to ICU to be placed on BIPAP. Patient transferred with belongings non-rebreather, tele/POX accompained with respiratory and primary nurse. Report given to Sarah CHRISTIANSON in ICU. Doctor updated on patient status and being transferred to ICU. Patient transferred to room 272.
[2023-04-17] MEDS: NYSTATIN 500,000 UNIT/5 ML ORAL.SUSP 500000 UNIT PO ×4 (06:39→21:19)
--- NOTE | 2023-04-17 06:39 | PC.NURSE ---
Pt was on 45% fio2 increased to 55% d/t desating
[2023-04-17] MEDS: HEPARIN SODIUM (PORCINE) 5,000 UNIT/ML VIAL 5000 UNIT SUBQ ×3 (06:40→21:19)
[2023-04-17] MEDS: GUAIFENESIN 600 MG TAB.ER.12H PO ×2 (06:41→17:32)
--- NOTE | 2023-04-17 07:10 | XR_ITS ---
[address] [address] Patient Name: JHONATAN MONTOYA MRN: [id number] date: 1955 Sex: F Assigned Patient Location: ICU Current Patient Location: ICU Accession/Order Number: [id number] Exam Date: 04/17/2023 08:02 Report Date: 04/17/2023 09:18 At the request of: BO MCCLAIN Procedure: XR chest 1V EXAM: XR chest 1V HISTORY: Respiratory failure, post-COVID COMPARISON: 04/25/2023 TECHNIQUE: AP view of the chest. Findings/impression: No significant change from prior exam. Cardiomegaly with mild congestion. Bibasilar airspace disease. No pneumothorax. Trace bilateral pleural effusions. Electronically authenticated by: MEGHAN ALVARADO Date: 04/17/2023 09:18
--- NOTE | 2023-04-17 07:39 | PM.PLPN ---
Progress Note: A&P Assessment and Plan (1) COVID-19: Assessment and Plan: 1. Acute viral pneumonia secondary to COVID-19.? Cleared from isolation 04/14/2023. Now in post-viral / inflammatory phase. 3. Acute hypoxic respiratory failure.? Secondary to #1 + #2.? Worsening, failed Vapotherm, now on BiPAP. Recheck CXR/ABG. 4. Oral candidiasis. Secondary to steroids (systemic and inhaled) + antibiotics.? Remain on nystatin. 5. Coronary artery disease.? No chest pain reported. 6. Obesity with BMI 37.4.? Inducing a restrictive pulmonary physiology. Weight loss advised. Patient originally examined at 07:20. Respiratory status continues to deteriorate. Bumex gtt started last week did not improve oxygenation. Now on BiPAP. Currently improved oxygenation, most consistent with PEEP - alveolar recruitment. If she continues to deteriorate, will need intubation. Patient's son, Lazaro, called while I was in the room. He was updated on her condition. Reassessed patient at noon. ABG shows mild alkalosis (major contribution from diuresis). CXR shows no change. She has had off-time of BiPAP onto Vapotherm. SpO2 drops to 88% on FiO2 100% when speaking to me. She appears very sensitive to EPAP/PEEP. Continue on/off BiPAP. (2) Hypertension: Qualifiers: Hypertension type: primary hypertension Qualified Code(s): I10 - Essential (primary) hypertension (3) Chronic low back pain: Qualifiers: Back pain laterality: midline Sciatica presence: without sciatica Qualified Code(s): M54.50 - Low back pain, unspecified; G89.29 - Other chronic pain (4) Asthma with acute exacerbation: Qualifiers: Asthma persistence: persistent Asthma severity: severe Qualified Code(s): J45.51 - Severe persistent asthma with (acute) exacerbation (5) Respiratory failure with hypoxia: Qualifiers: Chronicity: acute Qualified Code(s): J96.01 - Acute respiratory failure with hypoxia (6) Depression: Qualifiers: Active/Remission status: in full remission Depression Type: major depressive disorder Major depression recurrence: recurrent Qualified Code(s): F33.42 - Major depressive disorder, recurrent, in full remission (7) Hypokalemia: (8) JEANNE (acute kidney injury): (9) Dehydration determined by examination: Subjective Interval History Patient was doing fair over the weekend. Still required FiO2 100% on Vapotherm 4L/min. 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 With 19/05, her SpO2 rapidly improved and was able to have FiO2 weaned down to 55%. Going to 45% resulted in further desaturations, so patient is maintained @ 55% currently. She states she feels full of secretions, still has difficulty expectorating. Tired. Not ready for ventilator. Exam Constitutional Vital Signs - 24 hr 04/16/23 08:05 04/16/23 09:19 04/16/23 09:28 Temperature Pulse Rate 65 Respiratory Rate Blood Pressure 135/72 H Blood Pressure [Left Arm] Blood Pressure [Right Arm] Pulse Oximetry 91 L 91 L Oxygen Delivery Method Vapotherm Oxygen Delivery Flow Rate 40 Fraction of Inspired Oxygen 90 04/16/23 10:10 04/16/23 10:46 04/16/23 11:50 Temperature Pulse Rate 71 66 Respiratory Rate Blood Pressure Blood Pressure [Left Arm] Blood Pressure [Right Arm] Pulse Oximetry 96 90 L 93 L Oxygen Delivery Method Oxygen Delivery Flow Rate 40 Fraction of Inspired Oxygen 90 04/16/23 13:48 04/16/23 14:20 04/16/23 14:30 Temperature 100.0 F H 100.0 F H Pulse Rate 72 68 Respiratory Rate 24 Blood Pressure Blood Pressure [Left Arm] Blood Pressure [Right Arm] 113/70 Pulse Oximetry 91 L 91 L Oxygen Delivery Method Vapotherm Oxygen Delivery Flow Rate 40 Fraction of Inspired Oxygen 90 04/16/23 15:36 04/16/23 15:53 04/16/23 17:09 Temperature 98.0 F Pulse Rate 68 Respiratory Rate Blood Pressure Blood Pressure [Left Arm] Blood Pressure [Right Arm] Pulse Oximetry 94 L 92 L Oxygen Delivery Method Vapotherm Oxygen Delivery Flow Rate 40 Fraction of Inspired Oxygen 90 04/16/23 17:44 04/16/23 19:29 04/16/23 20:00 Temperature Pulse Rate 70 65 75 Respiratory Rate 20 Blood Pressure Blood Pressure [Left Arm] Blood Pressure [Right Arm] Pulse Oximetry 88 L 92 L 90 L Oxygen Delivery Method Vapotherm Oxygen Delivery Flow Rate 40 Fraction of Inspired Oxygen 90 04/16/23 20:47 04/16/23 22:00 04/16/23 23:13 Temperature 97.9 F Pulse Rate 101 H 64 64 Respiratory Rate 18 18 Blood Pressure Blood Pressure [Left Arm] 146/66 H Blood Pressure [Right Arm] Pulse Oximetry 90 L 97 96 Oxygen Delivery Method Vapotherm Vapotherm Oxygen Delivery Flow Rate 90 40 Fraction of Inspired Oxygen 90 04/17/23 00:00 04/17/23 02:00 04/17/23 02:19 Temperature Pulse Rate 63 53 L 53 L Respiratory Rate 18 Blood Pressure Blood Pressure [Left Arm] Blood Pressure [Right Arm] Pulse Oximetry 95 95 93 L Oxygen Delivery Method Vapotherm Oxygen Delivery Flow Rate 40 Fraction of Inspired Oxygen 85 04/17/23 02:19 04/17/23 03:47 04/17/23 04:33 Temperature 98.2 F Pulse Rate 56 L 100 H Respiratory Rate 20 Blood Pressure Blood Pressure [Left Arm] Blood Pressure [Right Arm] 124/54 H Pulse Oximetry 93 L 91 L 91 L Oxygen Delivery Method Vapotherm Vapotherm Oxygen Delivery Flow Rate 40 Fraction of Inspired Oxygen 85 04/17/23 05:44 04/17/23 06:00 04/17/23 06:38 Temperature Pulse Rate 56 L Respiratory Rate Blood Pressure Blood Pressure [Left Arm] Blood Pressure [Right Arm] Pulse Oximetry 83 L 89 L Oxygen Delivery Method BIPAP Oxygen Delivery Flow Rate Fraction of Inspired Oxygen 45 04/17/23 07:35 04/17/23 07:35 Temperature Pulse Rate 66 Respiratory Rate Blood Pressure Blood Pressure [Left Arm] Blood Pressure [Right Arm] Pulse Oximetry 91 L 91 L Oxygen Delivery Method BIPAP Oxygen Delivery Flow Rate Fraction of Inspired Oxygen 55 55 Documenting provider has reviewed patient's vital signs: yes HENMT Other: Wearing BiPAP Mask Chest Other: Palpable rhonchi Respiratory Other: Decreased breath sounds on left compared to right. Diffuse rhonchi - more than several days ag Cardio Rate: regular rate Rhythm: regular rhythm GI Common normals: Normal to inspection, nondistended, normoactive bowel sounds present Extremity Common normals: no clubbing, cyanosis or edema Neuro Common normals: moves all extremities and no focal motor deficits Psych Attitude: calm
[2023-04-17 07:51] LABS: pH ABG 7.499 (7.350-7.450)
[2023-04-17 07:52] LABS: ABG PCO2 44.9 mmHg (35.0-45.0); Allen Test POSITIVE (POSITIVE); Base Excess ABG 11.8 mmol/L (-2.0-2.0); Oxygen Saturation ABG 93.2 %; PO2 ABG 61.4 mmHg (80.0-100.0)
[2023-04-17 07:53] LABS: BIPAP Pressure 14/7; Fractionated Inspired Oxygen 55 %; Minute Volume 20.1; Peak Inspiratory Pressure 18; Pressure Support 7; Puncture Site RR; Rate 14; Tidal Volume 759
[2023-04-17 07:54] LABS: O2 Mode BIPAP
[2023-04-17] MEDS: INSULIN ASPART 300 UNIT/3 ML PEN SUBQ ×4 (08:43→21:19)
[2023-04-17] MEDS: CETIRIZINE HCL 10 MG TABLET 20 MG PO (08:45)
[2023-04-17] MEDS: AMLODIPINE BESYLATE 5 MG TABLET PO (08:45)
[2023-04-17] MEDS: GABAPENTIN 300 MG CAPSULE PO ×2 (08:46→20:39)
[2023-04-17] MEDS: CHOLECALCIFEROL (VITAMIN D3) 25 MCG/1,000 UNITS TABLET PO (08:46)
[2023-04-17] MEDS: INSULIN DETEMIR 300 UNIT/3 ML INSULN.PEN 20 UNIT SUBQ ×2 (08:47→20:33)
[2023-04-17] MEDS: MAGNESIUM OXIDE 400 MG TABLET PO (08:48)
[2023-04-17] MEDS: OMEPRAZOLE 40 MG CAPSULE.DR PO (08:48)
[2023-04-17] MEDS: SOLIFENACIN SUCCINATE 5 MG TABLET PO (08:48)
[2023-04-17] MEDS: MONTELUKAST SODIUM 10 MG TABLET PO (08:48)
[2023-04-17] MEDS: LEVOFLOXACIN IN DEXTROSE 5 % 750 MG/150 ML IV.SOLN 150 MG IV (09:22)
--- NOTE | 2023-04-17 10:58 | P.IMPN_ITS ---
Progress Note: A&P Assessment and Plan (1) COVID-19: Assessment and Plan: Acute worsening overnight. Required BIPAP but now back again on High flow. (2) Hypertension: Assessment and Plan: C/w amlodipine. At goal HCTZ on hold Qualifiers: Hypertension type: primary hypertension Qualified Code(s): I10 - Essential (primary) hypertension (3) Chronic low back pain: Assessment and Plan: On gabapentin. C/w same Qualifiers: Back pain laterality: midline Sciatica presence: without sciatica Qualified Code(s): M54.50 - Low back pain, unspecified; G89.29 - Other chronic pain (4) Asthma with acute exacerbation: Assessment and Plan: Severe persistent asthma at baseline. On trelegy as outpatient. Currently on mucomyst, mucinex, solumedrol and duonebs. No sig wheezing on exam but lungs are very bronchospastic, with diminished air entry. Qualifiers: Asthma severity: severe Asthma persistence: persistent Qualified Code(s): J45.51 - Severe persistent asthma with (acute) exacerbation (5) Respiratory failure with hypoxia: Assessment and Plan: Tachypniec, speaking in short sentences. Heading towards ARDS. Encourage prone positioning. C/w current treatment. Monitor closely. Discussed mechanical ventilation with patient and she is agreeable for it when absolutely needed. Qualifiers: Chronicity: acute Qualified Code(s): J96.01 - Acute respiratory failure with hypoxia (6) Depression: Assessment and Plan: C/w Trazodone and Paxil Qualifiers: Depression Type: major depressive disorder Major depression recurrence: recurrent Active/Remission status: in full remission Qualified Code(s): F33.42 - Major depressive disorder, recurrent, in full remission (7) Hypokalemia: Assessment and Plan: Improved. C/w oral potassium (8) JEANNE (acute kidney injury): Assessment and Plan: likely from diuresis. resolved with IV hydration (9) Dehydration determined by examination: Assessment and Plan: Improved with IV hydration. Poor Po intake. Internal Medicine - PN: Subj Subjective Interval history: Seen and examined. Overnight became hypoxic and required BIPAP for acute resp failure. She was transferred to ICU for it. She is back on high flow O2 and requiring 100% O2. Feels tired and experiencing dyspnea at rest. Speaking in short sentences Exam Constitutional Vital Signs - 24 hr 04/16/23 11:50 04/16/23 13:48 04/16/23 14:20 Temperature 100.0 F H Pulse Rate 66 72 68 Respiratory Rate 24 Blood Pressure Blood Pressure [Left Arm] Blood Pressure [Right Arm] 113/70 Pulse Oximetry 93 L 91 L 91 L Oxygen Delivery Method Vapotherm Oxygen Delivery Flow Rate 40 Fraction of Inspired Oxygen 90 04/16/23 14:30 04/16/23 15:36 04/16/23 15:53 Temperature 100.0 F H Pulse Rate 68 Respiratory Rate Blood Pressure Blood Pressure [Left Arm] Blood Pressure [Right Arm] Pulse Oximetry 94 L 92 L Oxygen Delivery Method Vapotherm Oxygen Delivery Flow Rate 40 Fraction of Inspired Oxygen 90 04/16/23 17:09 04/16/23 17:44 04/16/23 19:29 Temperature 98.0 F Pulse Rate 70 65 Respiratory Rate 20 Blood Pressure Blood Pressure [Left Arm] Blood Pressure [Right Arm] Pulse Oximetry 88 L 92 L Oxygen Delivery Method Vapotherm Oxygen Delivery Flow Rate 40 Fraction of Inspired Oxygen 90 04/16/23 20:00 04/16/23 20:47 04/16/23 22:00 Temperature 97.9 F Pulse Rate 75 101 H 64 Respiratory Rate 18 Blood Pressure Blood Pressure [Left Arm] 146/66 H Blood Pressure [Right Arm] Pulse Oximetry 90 L 90 L 97 Oxygen Delivery Method Vapotherm Oxygen Delivery Flow Rate 90 Fraction of Inspired Oxygen 04/16/23 23:13 04/17/23 00:00 04/17/23 02:00 Temperature Pulse Rate 64 63 53 L Respiratory Rate 18 Blood Pressure Blood Pressure [Left Arm] Blood Pressure [Right Arm] Pulse Oximetry 96 95 95 Oxygen Delivery Method Vapotherm Oxygen Delivery Flow Rate 40 Fraction of Inspired Oxygen 90 04/17/23 02:19 04/17/23 02:19 04/17/23 03:47 Temperature Pulse Rate 53 L 56 L Respiratory Rate 18 Blood Pressure Blood Pressure [Left Arm] Blood Pressure [Right Arm] Pulse Oximetry 93 L 93 L 91 L Oxygen Delivery Method Vapotherm Vapotherm Oxygen Delivery Flow Rate 40 40 Fraction of Inspired Oxygen 85 85 04/17/23 04:33 04/17/23 05:44 04/17/23 06:00 Temperature 98.2 F Pulse Rate 100 H 56 L Respiratory Rate 20 Blood Pressure Blood Pressure [Left Arm] Blood Pressure [Right Arm] 124/54 H Pulse Oximetry 91 L 83 L Oxygen Delivery Method Vapotherm Oxygen Delivery Flow Rate Fraction of Inspired Oxygen 45 04/17/23 06:38 04/17/23 07:35 04/17/23 07:35 Temperature Pulse Rate 66 Respiratory Rate Blood Pressure Blood Pressure [Left Arm] Blood Pressure [Right Arm] Pulse Oximetry 89 L 91 L 91 L Oxygen Delivery Method BIPAP BIPAP Oxygen Delivery Flow Rate Fraction of Inspired Oxygen 55 55 04/17/23 07:53 04/17/23 00:10 04/17/23 00:20 Temperature Pulse Rate 63 62 61 Respiratory Rate 19 15 Blood Pressure Blood Pressure [Left Arm] Blood Pressure [Right Arm] Pulse Oximetry 95 90 L Oxygen Delivery Method Oxygen Delivery Flow Rate Fraction of Inspired Oxygen 04/17/23 00:30 04/17/23 00:40 04/17/23 00:50 Temperature Pulse Rate 59 L 60 57 L Respiratory Rate 17 3 L 4 L Blood Pressure Blood Pressure [Left Arm] Blood Pressure [Right Arm] Pulse Oximetry 94 L 93 L 93 L Oxygen Delivery Method Oxygen Delivery Flow Rate Fraction of Inspired Oxygen 04/17/23 01:00 04/17/23 01:10 04/17/23 01:20 Temperature Pulse Rate 58 L 56 L 55 L Respiratory Rate 18 18 17 Blood Pressure Blood Pressure [Left Arm] Blood Pressure [Right Arm] Pulse Oximetry 94 L 94 L 94 L Oxygen Delivery Method Oxygen Delivery Flow Rate Fraction of Inspired Oxygen 04/17/23 01:30 04/17/23 01:40 04/17/23 01:50 Temperature Pulse Rate 54 L 57 L 54 L Respiratory Rate 18 19 16 Blood Pressure Blood Pressure [Left Arm] Blood Pressure [Right Arm] Pulse Oximetry 92 L 95 93 L Oxygen Delivery Method Oxygen Delivery Flow Rate Fraction of Inspired Oxygen 04/17/23 02:00 04/17/23 02:10 04/17/23 02:20 Temperature Pulse Rate 52 L 55 L 54 L Respiratory Rate 18 19 18 Blood Pressure Blood Pressure [Left Arm] Blood Pressure [Right Arm] Pulse Oximetry 95 92 L Oxygen Delivery Method Oxygen Delivery Flow Rate Fraction of Inspired Oxygen 04/17/23 02:30 04/17/23 02:40 04/17/23 02:50 Temperature Pulse Rate 60 59 L 59 L Respiratory Rate 15 10 L 18 Blood Pressure Blood Pressure [Left Arm] Blood Pressure [Right Arm] Pulse Oximetry 94 L 94 L 95 Oxygen Delivery Method Oxygen Delivery Flow Rate Fraction of Inspired Oxygen 04/17/23 03:00 04/17/23 03:10 04/17/23 03:20 Temperature Pulse Rate 60 67 60 Respiratory Rate 16 20 18 Blood Pressure Blood Pressure [Left Arm] Blood Pressure [Right Arm] Pulse Oximetry 95 93 L 92 L Oxygen Delivery Method Oxygen Delivery Flow Rate Fraction of Inspired Oxygen 04/17/23 03:30 04/17/23 03:40 04/17/23 03:50 Temperature Pulse Rate 58 L 55 L 56 L Respiratory Rate 17 17 20 Blood Pressure Blood Pressure [Left Arm] Blood Pressure [Right Arm] Pulse Oximetry 91 L 91 L 92 L Oxygen Delivery Method Oxygen Delivery Flow Rate Fraction of Inspired Oxygen 04/17/23 04:00 04/17/23 04:10 04/17/23 04:20 Temperature Pulse Rate 53 L 53 L 54 L Respiratory Rate 18 19 18 Blood Pressure Blood Pressure [Left Arm] Blood Pressure [Right Arm] Pulse Oximetry 89 L 88 L 88 L Oxygen Delivery Method Oxygen Delivery Flow Rate Fraction of Inspired Oxygen 04/17/23 04:30 04/17/23 04:40 04/17/23 04:50 Temperature Pulse Rate 52 L 62 69 Respiratory Rate 18 12 32 H Blood Pressure Blood Pressure [Left Arm] Blood Pressure [Right Arm] Pulse Oximetry 89 L 88 L Oxygen Delivery Method Oxygen Delivery Flow Rate Fraction of Inspired Oxygen 04/17/23 05:00 04/17/23 05:10 04/17/23 05:20 Temperature Pulse Rate 55 L 59 L 60 Respiratory Rate 0 L 22 21 Blood Pressure Blood Pressure [Left Arm] Blood Pressure [Right Arm] Pulse Oximetry 87 L 93 L 92 L Oxygen Delivery Method Oxygen Delivery Flow Rate Fraction of Inspired Oxygen 04/17/23 05:30 04/17/23 05:40 04/17/23 05:50 Temperature Pulse Rate 59 L 56 L 56 L Respiratory Rate 22 19 17 Blood Pressure Blood Pressure [Left Arm] Blood Pressure [Right Arm] Pulse Oximetry 83 L 82 L 84 L Oxygen Delivery Method Oxygen Delivery Flow Rate Fraction of Inspired Oxygen 04/17/23 06:00 04/17/23 06:10 04/17/23 06:10 Temperature Pulse Rate 70 Respiratory Rate 25 H Blood Pressure 151/90 H Blood Pressure [Left Arm] Blood Pressure [Right Arm] Pulse Oximetry 77 L 91 L 94 L Oxygen Delivery Method Oxygen Delivery Flow Rate Fraction of Inspired Oxygen 04/17/23 06:20 04/17/23 06:30 04/17/23 06:40 Temperature Pulse Rate 73 66 63 Respiratory Rate 20 22 24 Blood Pressure Blood Pressure [Left Arm] Blood Pressure [Right Arm] Pulse Oximetry Oxygen Delivery Method Oxygen Delivery Flow Rate Fraction of Inspired Oxygen 04/17/23 06:50 04/17/23 07:00 04/17/23 07:10 Temperature Pulse Rate 69 61 57 L Respiratory Rate 25 H 24 23 Blood Pressure Blood Pressure [Left Arm] Blood Pressure [Right Arm] Pulse Oximetry Oxygen Delivery Method Oxygen Delivery Flow Rate Fraction of Inspired Oxygen 04/17/23 07:20 04/17/23 07:24 04/17/23 07:24 Temperature 97.7 F Pulse Rate 61 64 62 Respiratory Rate 21 22 25 H Blood Pressure 128/84 H Blood Pressure [Left Arm] Blood Pressure [Right Arm] Pulse Oximetry 91 L Oxygen Delivery Method Oxygen Delivery Flow Rate Fraction of Inspired Oxygen 04/17/23 07:24 04/17/23 07:30 04/17/23 07:40 Temperature Pulse Rate 67 62 Respiratory Rate 26 H 22 Blood Pressure 128/84 H Blood Pressure [Left Arm] Blood Pressure [Right Arm] Pulse Oximetry 90 L Oxygen Delivery Method Oxygen Delivery Flow Rate Fraction of Inspired Oxygen 04/17/23 08:45 04/17/23 08:45 04/17/23 09:32 Temperature Pulse Rate 61 Respiratory Rate Blood Pressure 128/84 H Blood Pressure [Left Arm] Blood Pressure [Right Arm] Pulse Oximetry 93 L Oxygen Delivery Method Vapotherm Oxygen Delivery Flow Rate 40 Fraction of Inspired Oxygen 100 04/17/23 07:50 04/17/23 08:00 04/17/23 08:10 Temperature Pulse Rate 72 63 63 Respiratory Rate 22 20 22 Blood Pressure Blood Pressure [Left Arm] Blood Pressure [Right Arm] Pulse Oximetry Oxygen Delivery Method Oxygen Delivery Flow Rate Fraction of Inspired Oxygen 04/17/23 08:20 04/17/23 08:30 04/17/23 08:40 Temperature Pulse Rate 58 L 62 61 Respiratory Rate 18 20 20 Blood Pressure Blood Pressure [Left Arm] Blood Pressure [Right Arm] Pulse Oximetry Oxygen Delivery Method Oxygen Delivery Flow Rate Fraction of Inspired Oxygen 04/17/23 08:50 04/17/23 09:00 04/17/23 09:10 Temperature Pulse Rate 60 70 71 Respiratory Rate 22 18 18 Blood Pressure Blood Pressure [Left Arm] Blood Pressure [Right Arm] Pulse Oximetry Oxygen Delivery Method Oxygen Delivery Flow Rate Fraction of Inspired Oxygen 04/17/23 09:20 04/17/23 09:30 04/17/23 09:40 Temperature Pulse Rate 65 66 66 Respiratory Rate 23 22 21 Blood Pressure Blood Pressure [Left Arm] Blood Pressure [Right Arm] Pulse Oximetry Oxygen Delivery Method Oxygen Delivery Flow Rate Fraction of Inspired Oxygen 04/17/23 09:50 Temperature Pulse Rate 64 Respiratory Rate 21 Blood Pressure Blood Pressure [Left Arm] Blood Pressure [Right Arm] Pulse Oximetry Oxygen Delivery Method Oxygen Delivery Flow Rate Fraction of Inspired Oxygen Documenting provider has reviewed patient's vital signs: yes Common normals: oriented x3 Nutritional appearance: obese Orientation/consciousness: Yes awake Other: appears sick and tired HENMT Common normals: normocephalic and head/scalp atraumatic Other: Wearing BiPAP Mask Eye Common normals: conjunctivae normal and no scleral icterus Chest Other: Palpable rhonchi Respiratory Other: Tachypneic, short of breath, speaking in short sentences. No wheezing. Coarse breath sounds Cardio Common normals: regular rhythm, S1 normal heart sound and S2 normal heart sound Rate: regular rate Rhythm: regular rhythm GI Common normals: Normal to inspection, nondistended, normoactive bowel sounds present Extremity Common normals: no clubbing, cyanosis or edema Neuro Common normals: moves all extremities and no focal motor deficits Psych Common normals: mental status grossly normal, thought process normal, denies homicidal ideation and denies suicidal ideation Attitude: calm Internal Medicine - PN: Obj Da Labs Labs: Laboratory Results - last 24 hr 04/16/23 04/17/23 04/17/23 20:29 04:39 07:42 WBC 10.4 RBC 4.38 Hgb 13.3 Hct 39.5 MCV 90.2 MCH 30.4 MCHC 33.7 RDW 11.7 Plt Count 165 MPV 9.6 Neut % (Auto) 88.8 H Lymph % (Auto) 4.7 L [place] % (Auto) 4.5 Eos % (Auto) 0.0 L Baso % (Auto) 0.2 Neut # (Auto) 9.2 H Lymph # (Auto) 0.5 L [place] # (Auto) 0.5 Eos # (Auto) 0.0 Baso # (Auto) 0.0 Abs Immat Gran (auto) 0.19 H Imm/Tot Granulo (auto) 1.8 H Puncture Site Rr ABG pH 7.499 H ABG pCO2 44.9 ABG pO2 61.4 L ABG HCO3 35.0 H ABG O2 Saturation 93.2 ABG Base Excess 11.8 H Hardy Test Positive Minute Volume 20.1 FiO2 55 Tidal Volume 759 Peak Inspir Pressure 18 Pressure Support 7 BiPAP 14/7 Sodium 139 Potassium 4.4 Chloride 101 Carbon Dioxide 35.7 H Anion Gap 6.7 BUN 29.0 H Creatinine 0.89 Est GFR ( Amer) >60 Est GFR (Non-Af Amer) >60 BUN/Creatinine Ratio 32.6 Glucose 192 H Calcium 7.9 L Total Bilirubin 0.4 AST 29 ALT 121 H Alkaline Phosphatase 66 Total Protein 5.5 L Albumin 2.5 L Globulin 3.0 Albumin/Globulin Ratio 0.8 POC Glucose 249 H Urinary Catheter Management Urinary Catheter Management Urethral: Cath placed during this visit: yes Urethral indwelling: No Reason for continuing: measure accurate output Insertion date: 04/14/23 Insertion time: 11:59
--- NOTE | 2023-04-17 11:52 | CM.NOTE ---
Rounds made with Dr. Ohara. Transferred to ICU this am for BiPap. No discharge today.
[2023-04-17] MEDS: BENZONATATE 100 MG CAPSULE PO (20:31)
[2023-04-17] MEDS: ACETAMINOPHEN 325 MG TABLET 650 MG PO (20:40)
[2023-04-17] MEDS: BACLOFEN 10 MG TABLET 5 MG PO (21:17)
[2023-04-17] MEDS: PAROXETINE HCL 20 MG TABLET PO (21:18)
[2023-04-17] MEDS: TRAZODONE HCL 50 MG TABLET PO (21:20)
--- NOTE | 2023-04-17 23:12 | RESP.RT ---
Took patient off vapotherm and put on bipap for the night 19/05 55%, Sp02 now 94%
[2023-04-18] VITALS (173 sets, daily range): BP systolic 124–152; BP diastolic 74–83; PULSE 51–129; RESP 10–52; TEMP 36.4–36.7; O2SAT 89–93
[2023-04-18] MEDS: METHYLPREDNISOLONE SOD SUCC PF 125 MG/2 ML VIAL 60 MG IVP ×3 (01:58→17:27)
[2023-04-18] MEDS: ACETYLCYSTEINE 400 MG/4 ML VIAL 200 MG IH ×6 (03:49→23:13)
[2023-04-18] MEDS: IPRATROPIUM/ALBUTEROL SULFATE 3 ML AMPUL.NEB IH ×6 (03:49→23:13)
[2023-04-18 05:13] LABS: Basophils Percent Auto 0.2 % (0.2-2.0); Hematocrit 38.8 % (36.0-48.0); Hemoglobin 13.3 g/dL (12.0-16.0); Immature Granulocytes Abs Auto 0.25 10^3/uL (0.00-0.03); Lymphocytes Absolute Auto 0.6 10^3/uL (1.2-3.8); Lymphocytes Percent Auto 4.9 % (20.5-60.0); Mean Corpuscular HGB Conc 34.3 g/dL (29.9-35.2); Mean Corpuscular Hemoglobin 30.7 pg (26.7-34.0); Mean Corpuscular Volume 89.6 fL (81.0-99.0); Mean Platelet Volume 9.8 fL (9.5-13.5); Monocytes Absolute Auto 0.5 10^3/uL (0.3-0.8); Monocytes Percent Auto 3.9 % (1.7-12.0); Neutrophils Absolute Auto 11.1 10^3/uL (1.4-6.5); Platelet Count 176 10^3/uL (150-450); Red Blood Count 4.33 10^6/uL (4.20-5.40); Red Cell Distribution Width 11.6 % (11.0-15.0); White Blood Count 12.4 10^3/uL (4.0-11.0)
[2023-04-18 05:39] LABS: Alanine Aminotransferase 121 U/L (14-59); Albumin Globulin Ratio 0.8; Albumin Level 2.5 g/dL (3.4-5.0); Alkaline Phosphatase 70 U/L (46-116); Anion Gap 8.6; Aspartate Amino Transferase 24 U/L (15-37); BUN Creatinine Ratio 34.8; Bilirubin Total 0.3 mg/dL (0.2-1.0); Calcium 8.2 mg/dL (8.5-10.1); Carbon Dioxide 32.8 mmol/L (21.0-32.0); Chloride 101 mmol/L (98-107); Estimated GFR (African America >60 (>=60); Estimated GFR (Non-African Ame >60 (>=60); Globulin 3.1 g/dL; Glucose 184 mg/dL (74-106); Potassium 4.4 mmol/L (3.5-5.1); Sodium 138 mmol/L (136-145); Total Protein 5.6 g/dL (6.4-8.2)
[2023-04-18] MEDS: ACETAMINOPHEN 325 MG TABLET 650 MG PO (05:45)
[2023-04-18] MEDS: GUAIFENESIN 600 MG TAB.ER.12H PO ×2 (05:49→17:32)
[2023-04-18] MEDS: HEPARIN SODIUM (PORCINE) 5,000 UNIT/ML VIAL 5000 UNIT SUBQ ×3 (05:50→21:45)
[2023-04-18] MEDS: NYSTATIN 500,000 UNIT/5 ML ORAL.SUSP 500000 UNIT PO ×4 (05:51→21:45)
--- NOTE | 2023-04-18 07:15 | RESP.RT ---
placed on vapotherm post BiPAP check
--- NOTE | 2023-04-18 07:20 | CT_ITS ---
The [address] [address] Patient Name: JHONATAN MONTOYA MRN: [id number] date: 1955 Sex: F Assigned Patient Location: ICU Current Patient Location: ICU Accession/Order Number: [id number] Exam Date: 04/18/2023 09:45 Report Date: 04/18/2023 11:04 At the request of: BO MCCLAIN Procedure: CT angio chest CT angio chest CLINICAL HISTORY: Persistent hypoxic respiratory failure, post-COVID. Shortness of breath. COMPARISON: 04/17/2023. 04/11/2023. TECHNIQUE: Axial CT images obtained from lung apices through lung bases, following intravenous administration of 98 mL of Omnipaque 350. Coronal and sagittal MIP reconstructions performed. Dose reduction techniques were achieved by using automated exposure control and/or adjustment of mA and/or kV according to patient size and/or use of iterative reconstruction technique. FINDINGS: Lower thyroid unremarkable. No axillary adenopathy. Thoracic spondylosis without acute bony process. Visualized upper abdomen demonstrates no acute process. Mild cardiomegaly. No aortic aneurysm or dissection. No pulmonary embolism. Main pulmonary artery is mildly enlarged at 38 mm. No pericardial effusion. No mediastinal or hilar adenopathy. Lingular segment of the left upper lobe is completely collapsed as is a small amount of the more posterior superior left upper lobe secondary to endobronchial obstruction. There is partial endobronchial filling and collapse in the right lower lobe and inferior aspect of the right upper lobe anteriorly. Small amount of endobronchial filling and opacity in the left lower lobe. No pleural effusion or pneumothorax. IMPRESSION: Multifocal endobronchial filling and collapse which may relate to aspiration pneumonia versus mucous plugging. Recommend short-term follow-up and may consider bronchoscopy. Cannot exclude superimposed infection. No pulmonary embolism. The main pulmonary artery is mildly enlarged which could be seen in the setting of pulmonary artery hypertension. Electronically authenticated by: GELY ALEXANDER Date: 04/18/2023 11:04
--- NOTE | 2023-04-18 07:23 | P.PLPN_ITS ---
Progress Note: A&P Assessment and Plan (1) COVID-19: Assessment and Plan: 1. Acute viral pneumonia secondary to COVID-19.? Cleared from isolation 04/14/2023. Now in post-viral / inflammatory phase. Supportive care. 3. Acute hypoxic respiratory failure.? Secondary to #1 + #2.? Transitioning bet ween BiPAP (she responds very well to EPAP/PEEP) and Vapotherm. Still has persistent, severe hypoxia. Question patient developed ARDS and is in inflammatory to fibrotic phase. As COVID-19 can induce multiple pulmonary issues (pulmonary emboli, pneumomediastinum, pneumothorax, effusions, etc.), and the patient has been severely hypoxic for nearly a week now, I discussed with the patient about repeating a CT to evaluate for these aforementioned conditions. Her renal function is well. She voiced she would appreciate the CT. Discussed logistics with RN and RT...can transport down on BiPAP and transition her to Vapotherm or NRB in CT. 4. Oral candidiasis. Secondary to steroids (systemic and inhaled) + antibiotics.? Remains on nystatin. 5. Coronary artery disease.? Denies any chest pain. 6. Obesity with BMI 37.4.? Inducing a restrictive pulmonary physiology. Weight loss advised. She remains ill. Anticipate prolonged recovery...if she persists at this level, may need LTAC, a respiratory unit, or SNF. Subjective Subjective Interval history: Patient has been doing about the same as yesterday. Still on/off BiPAP - she states she does feel a little better on it. Transitions back to Vapotherm @ FiO2 100%. Having Mucomyst nebs...patient states she is finally expectorating some. Sputum is darker yellow, denies any blood or rust-color. No chest pain. She is trying to be in good spirits. Exam Constitutional Vital Signs - 24 hr 04/17/23 07:35 04/17/23 07:35 04/17/23 07:53 Temperature Pulse Rate 66 63 Pulse Rate [Monitor Left] Respiratory Rate Blood Pressure Pulse Oximetry 91 L 91 L Oxygen Delivery Method BIPAP Oxygen Delivery Flow Rate Fraction of Inspired Oxygen 55 55 04/17/23 07:24 04/17/23 07:24 04/17/23 07:24 Temperature 97.7 F Pulse Rate 64 62 Pulse Rate [Monitor Left] Respiratory Rate 22 25 H Blood Pressure 128/84 H 128/84 H Pulse Oximetry 91 L 90 L Oxygen Delivery Method Oxygen Delivery Flow Rate Fraction of Inspired Oxygen 04/17/23 07:30 04/17/23 07:40 04/17/23 08:45 Temperature Pulse Rate 67 62 Pulse Rate [Monitor Left] Respiratory Rate 26 H 22 Blood Pressure 128/84 H Pulse Oximetry Oxygen Delivery Method Oxygen Delivery Flow Rate Fraction of Inspired Oxygen 04/17/23 08:45 04/17/23 09:32 04/17/23 07:50 Temperature Pulse Rate 61 72 Pulse Rate [Monitor Left] Respiratory Rate 22 Blood Pressure Pulse Oximetry 93 L Oxygen Delivery Method Vapotherm Oxygen Delivery Flow Rate 40 Fraction of Inspired Oxygen 100 04/17/23 08:00 04/17/23 08:10 04/17/23 08:20 Temperature Pulse Rate 63 63 58 L Pulse Rate [Monitor Left] Respiratory Rate 20 22 18 Blood Pressure Pulse Oximetry Oxygen Delivery Method Oxygen Delivery Flow Rate Fraction of Inspired Oxygen 04/17/23 08:30 04/17/23 08:40 04/17/23 08:50 Temperature Pulse Rate 62 61 60 Pulse Rate [Monitor Left] Respiratory Rate 20 20 22 Blood Pressure Pulse Oximetry Oxygen Delivery Method Oxygen Delivery Flow Rate Fraction of Inspired Oxygen 04/17/23 09:00 04/17/23 09:10 04/17/23 09:20 Temperature Pulse Rate 70 71 65 Pulse Rate [Monitor Left] Respiratory Rate 18 18 23 Blood Pressure Pulse Oximetry Oxygen Delivery Method Oxygen Delivery Flow Rate Fraction of Inspired Oxygen 04/17/23 09:30 04/17/23 09:40 04/17/23 09:50 Temperature Pulse Rate 66 66 64 Pulse Rate [Monitor Left] Respiratory Rate 22 21 21 Blood Pressure Pulse Oximetry Oxygen Delivery Method Oxygen Delivery Flow Rate Fraction of Inspired Oxygen 04/17/23 10:55 04/17/23 11:00 04/17/23 11:13 Temperature Pulse Rate 71 Pulse Rate [Monitor Left] Respiratory Rate 21 Blood Pressure Pulse Oximetry 92 L Oxygen Delivery Method Vapotherm Oxygen Delivery Flow Rate 40 Fraction of Inspired Oxygen 100 04/17/23 10:00 04/17/23 10:10 04/17/23 10:20 Temperature Pulse Rate 63 64 63 Pulse Rate [Monitor Left] Respiratory Rate 22 22 19 Blood Pressure Pulse Oximetry Oxygen Delivery Method Oxygen Delivery Flow Rate Fraction of Inspired Oxygen 04/17/23 10:30 04/17/23 10:40 04/17/23 10:50 Temperature Pulse Rate 64 62 81 Pulse Rate [Monitor Left] Respiratory Rate 21 20 26 H Blood Pressure Pulse Oximetry Oxygen Delivery Method Oxygen Delivery Flow Rate Fraction of Inspired Oxygen 04/17/23 11:00 04/17/23 11:10 04/17/23 11:17 Temperature 98.4 F Pulse Rate 74 71 Pulse Rate [Monitor Left] Respiratory Rate 29 H 23 Blood Pressure 125/64 H Pulse Oximetry 89 L Oxygen Delivery Method Oxygen Delivery Flow Rate Fraction of Inspired Oxygen 04/17/23 11:17 04/17/23 11:17 04/17/23 11:20 Temperature 98.4 F Pulse Rate 72 70 Pulse Rate [Monitor Left] Respiratory Rate 25 H 24 Blood Pressure 125/64 H Pulse Oximetry 88 L Oxygen Delivery Method Oxygen Delivery Flow Rate Fraction of Inspired Oxygen 04/17/23 12:23 04/17/23 13:46 04/17/23 15:22 Temperature Pulse Rate 72 71 68 Pulse Rate [Monitor Left] Respiratory Rate Blood Pressure Pulse Oximetry 92 L Oxygen Delivery Method Oxygen Delivery Flow Rate Fraction of Inspired Oxygen 55 04/17/23 15:22 04/17/23 14:25 04/17/23 16:06 Temperature 98.7 F Pulse Rate 69 70 Pulse Rate [Monitor Left] Respiratory Rate Blood Pressure Pulse Oximetry 92 L 93 L Oxygen Delivery Method Vapotherm Oxygen Delivery Flow Rate 40 Fraction of Inspired Oxygen 100 04/17/23 11:30 04/17/23 11:40 04/17/23 11:50 Temperature Pulse Rate 71 68 68 Pulse Rate [Monitor Left] Respiratory Rate 22 20 21 Blood Pressure Pulse Oximetry Oxygen Delivery Method Oxygen Delivery Flow Rate Fraction of Inspired Oxygen 04/17/23 12:00 04/17/23 12:10 04/17/23 12:20 Temperature Pulse Rate 69 64 77 Pulse Rate [Monitor Left] Respiratory Rate 25 H 14 21 Blood Pressure Pulse Oximetry Oxygen Delivery Method Oxygen Delivery Flow Rate Fraction of Inspired Oxygen 04/17/23 12:30 04/17/23 12:40 04/17/23 12:50 Temperature Pulse Rate 69 71 72 Pulse Rate [Monitor Left] Respiratory Rate 15 23 24 Blood Pressure Pulse Oximetry Oxygen Delivery Method Oxygen Delivery Flow Rate Fraction of Inspired Oxygen 04/17/23 13:00 04/17/23 13:10 04/17/23 13:20 Temperature Pulse Rate 73 70 71 Pulse Rate [Monitor Left] Respiratory Rate 21 19 23 Blood Pressure Pulse Oximetry Oxygen Delivery Method Oxygen Delivery Flow Rate Fraction of Inspired Oxygen 04/17/23 13:30 04/17/23 13:40 04/17/23 13:50 Temperature Pulse Rate 69 69 73 Pulse Rate [Monitor Left] Respiratory Rate 21 24 30 H Blood Pressure Pulse Oximetry Oxygen Delivery Method Oxygen Delivery Flow Rate Fraction of Inspired Oxygen 04/17/23 14:00 04/17/23 14:10 04/17/23 14:20 Temperature Pulse Rate 75 70 71 Pulse Rate [Monitor Left] Respiratory Rate 25 H 24 17 Blood Pressure Pulse Oximetry Oxygen Delivery Method Oxygen Delivery Flow Rate Fraction of Inspired Oxygen 04/17/23 14:30 04/17/23 14:40 04/17/23 14:50 Temperature Pulse Rate 75 73 69 Pulse Rate [Monitor Left] Respiratory Rate 23 22 23 Blood Pressure Pulse Oximetry Oxygen Delivery Method Oxygen Delivery Flow Rate Fraction of Inspired Oxygen 04/17/23 15:00 04/17/23 15:10 04/17/23 15:20 Temperature Pulse Rate 67 69 66 Pulse Rate [Monitor Left] Respiratory Rate 24 24 20 Blood Pressure Pulse Oximetry Oxygen Delivery Method Oxygen Delivery Flow Rate Fraction of Inspired Oxygen 04/17/23 15:30 04/17/23 15:40 04/17/23 15:50 Temperature Pulse Rate 68 69 70 Pulse Rate [Monitor Left] Respiratory Rate 23 23 22 Blood Pressure Pulse Oximetry Oxygen Delivery Method Oxygen Delivery Flow Rate Fraction of Inspired Oxygen 04/17/23 16:00 04/17/23 16:01 04/17/23 16:01 Temperature Pulse Rate 68 69 Pulse Rate [Monitor Left] Respiratory Rate 26 H 24 Blood Pressure 137/69 H Pulse Oximetry 94 L Oxygen Delivery Method Oxygen Delivery Flow Rate Fraction of Inspired Oxygen 04/17/23 16:01 04/17/23 16:10 04/17/23 16:01 Temperature Pulse Rate 70 Pulse Rate [Monitor Left] Respiratory Rate Blood Pressure 137/69 H 137/69 H Pulse Oximetry 94 L 93 L Oxygen Delivery Method Oxygen Delivery Flow Rate Fraction of Inspired Oxygen 04/17/23 16:01 04/17/23 16:10 04/17/23 17:12 Temperature Pulse Rate 70 69 Pulse Rate [Monitor Left] Respiratory Rate 23 Blood Pressure 137/69 H Pulse Oximetry 94 L Oxygen Delivery Method Oxygen Delivery Flow Rate Fraction of Inspired Oxygen 04/17/23 19:26 04/17/23 19:00 04/17/23 19:49 Temperature Pulse Rate 68 71 Pulse Rate [Monitor Left] 77 Respiratory Rate 20 Blood Pressure Pulse Oximetry 93 L 93 L Oxygen Delivery Method Vapotherm Oxygen Delivery Flow Rate 40 Fraction of Inspired Oxygen 100 04/17/23 19:49 04/17/23 19:41 04/17/23 21:00 Temperature Pulse Rate 77 67 Pulse Rate [Monitor Left] Respiratory Rate Blood Pressure Pulse Oximetry 93 L 93 L 96 Oxygen Delivery Method Nasal Cannula Oxygen Delivery Flow Rate 3 Fraction of Inspired Oxygen 04/17/23 22:04 04/17/23 16:20 04/17/23 16:30 Temperature Pulse Rate 62 67 68 Pulse Rate [Monitor Left] Respiratory Rate 20 23 Blood Pressure Pulse Oximetry 97 Oxygen Delivery Method Oxygen Delivery Flow Rate Fraction of Inspired Oxygen 04/17/23 16:40 04/17/23 16:50 04/17/23 17:00 Temperature Pulse Rate 66 68 Pulse Rate [Monitor Left] Respiratory Rate 23 23 29 H Blood Pressure Pulse Oximetry Oxygen Delivery Method Oxygen Delivery Flow Rate Fraction of Inspired Oxygen 04/17/23 17:10 04/17/23 17:20 04/17/23 17:30 Temperature Pulse Rate 102 H 69 Pulse Rate [Monitor Left] Respiratory Rate 22 22 22 Blood Pressure Pulse Oximetry Oxygen Delivery Method Oxygen Delivery Flow Rate Fraction of Inspired Oxygen 04/17/23 17:40 04/17/23 17:50 04/17/23 18:00 Temperature Pulse Rate 79 74 72 Pulse Rate [Monitor Left] Respiratory Rate 19 22 20 Blood Pressure Pulse Oximetry Oxygen Delivery Method Oxygen Delivery Flow Rate Fraction of Inspired Oxygen 04/17/23 18:10 04/17/23 18:20 04/17/23 18:30 Temperature Pulse Rate 107 H 73 73 Pulse Rate [Monitor Left] Respiratory Rate 14 19 21 Blood Pressure Pulse Oximetry Oxygen Delivery Method Oxygen Delivery Flow Rate Fraction of Inspired Oxygen 04/17/23 18:40 04/17/23 18:50 04/17/23 19:00 Temperature Pulse Rate 74 73 96 H Pulse Rate [Monitor Left] Respiratory Rate 19 21 22 Blood Pressure Pulse Oximetry Oxygen Delivery Method Oxygen Delivery Flow Rate Fraction of Inspired Oxygen 04/17/23 19:07 04/17/23 19:07 04/17/23 19:07 Temperature 98.5 F Pulse Rate 69 Pulse Rate [Monitor Left] Respiratory Rate 14 Blood Pressure 144/83 H 144/83 H Pulse Oximetry 96 94 L Oxygen Delivery Method Oxygen Delivery Flow Rate 40 Fraction of Inspired Oxygen 100 04/17/23 19:10 04/17/23 19:20 04/17/23 19:30 Temperature Pulse Rate 70 69 72 Pulse Rate [Monitor Left] Respiratory Rate 17 21 25 H Blood Pressure Pulse Oximetry Oxygen Delivery Method Oxygen Delivery Flow Rate Fraction of Inspired Oxygen 04/17/23 19:40 04/17/23 19:50 04/17/23 20:00 Temperature Pulse Rate 75 90 Pulse Rate [Monitor Left] Respiratory Rate 24 23 22 Blood Pressure Pulse Oximetry Oxygen Delivery Method Oxygen Delivery Flow Rate Fraction of Inspired Oxygen 04/17/23 20:10 04/17/23 20:20 04/17/23 20:30 Temperature Pulse Rate 72 70 69 Pulse Rate [Monitor Left] Respiratory Rate 19 19 23 Blood Pressure Pulse Oximetry Oxygen Delivery Method Oxygen Delivery Flow Rate Fraction of Inspired Oxygen 04/17/23 20:40 04/17/23 20:50 04/17/23 21:00 Temperature Pulse Rate 84 68 68 Pulse Rate [Monitor Left] Respiratory Rate 19 20 20 Blood Pressure Pulse Oximetry Oxygen Delivery Method Oxygen Delivery Flow Rate Fraction of Inspired Oxygen 04/17/23 21:10 04/17/23 21:20 04/17/23 21:30 Temperature Pulse Rate 69 66 66 Pulse Rate [Monitor Left] Respiratory Rate 19 20 20 Blood Pressure Pulse Oximetry Oxygen Delivery Method Oxygen Delivery Flow Rate Fraction of Inspired Oxygen 04/17/23 21:40 04/17/23 23:09 04/17/23 23:09 Temperature Pulse Rate 79 60 Pulse Rate [Monitor Left] 60 Respiratory Rate 34 H Blood Pressure Pulse Oximetry 94 L Oxygen Delivery Method Oxygen Delivery Flow Rate Fraction of Inspired Oxygen 04/17/23 23:09 04/17/23 22:54 04/17/23 21:50 Temperature Pulse Rate 61 63 86 Pulse Rate [Monitor Left] Respiratory Rate 20 9 L Blood Pressure Pulse Oximetry 94 L 96 Oxygen Delivery Method Vapotherm Oxygen Delivery Flow Rate 40 Fraction of Inspired Oxygen 55 100 04/17/23 22:00 04/17/23 22:10 04/17/23 22:20 Temperature Pulse Rate 63 62 63 Pulse Rate [Monitor Left] Respiratory Rate 20 18 17 Blood Pressure Pulse Oximetry Oxygen Delivery Method Oxygen Delivery Flow Rate Fraction of Inspired Oxygen 04/17/23 22:30 04/17/23 22:40 04/17/23 22:50 Temperature Pulse Rate 65 64 60 Pulse Rate [Monitor Left] Respiratory Rate 19 19 18 Blood Pressure Pulse Oximetry Oxygen Delivery Method Oxygen Delivery Flow Rate Fraction of Inspired Oxygen 04/17/23 22:54 04/17/23 22:54 04/17/23 23:00 Temperature 98.7 F Pulse Rate 61 61 Pulse Rate [Monitor Left] Respiratory Rate 19 21 Blood Pressure 132/76 H Pulse Oximetry 94 L Oxygen Delivery Method Oxygen Delivery Flow Rate Fraction of Inspired Oxygen 04/17/23 23:10 04/17/23 23:56 04/18/23 01:00 Temperature Pulse Rate 60 56 L 54 L Pulse Rate [Monitor Left] Respiratory Rate 19 Blood Pressure Pulse Oximetry 93 L 92 L Oxygen Delivery Method Oxygen Delivery Flow Rate Fraction of Inspired Oxygen 04/18/23 02:25 04/18/23 03:13 04/18/23 03:49 Temperature Pulse Rate 52 L 52 L 57 L Pulse Rate [Monitor Left] Respiratory Rate 20 Blood Pressure Pulse Oximetry 92 L 93 L 91 L Oxygen Delivery Method BIPAP Oxygen Delivery Flow Rate Fraction of Inspired Oxygen 55 04/18/23 03:58 04/18/23 04:03 04/18/23 04:33 Temperature Pulse Rate 57 L 58 L 56 L Pulse Rate [Monitor Left] Respiratory Rate 18 Blood Pressure Pulse Oximetry 91 L 90 L 91 L Oxygen Delivery Method BIPAP Oxygen Delivery Flow Rate Fraction of Inspired Oxygen 55 55 04/17/23 23:20 04/17/23 23:30 04/17/23 23:40 Temperature Pulse Rate 61 58 L 56 L Pulse Rate [Monitor Left] Respiratory Rate 16 18 16 Blood Pressure Pulse Oximetry Oxygen Delivery Method Oxygen Delivery Flow Rate Fraction of Inspired Oxygen 04/17/23 23:50 04/18/23 00:00 04/18/23 00:10 Temperature Pulse Rate 57 L 56 L 55 L Pulse Rate [Monitor Left] Respiratory Rate 18 15 16 Blood Pressure Pulse Oximetry Oxygen Delivery Method Oxygen Delivery Flow Rate Fraction of Inspired Oxygen 04/18/23 00:20 04/18/23 00:30 04/18/23 00:40 Temperature Pulse Rate 54 L 54 L 55 L Pulse Rate [Monitor Left] Respiratory Rate 15 16 18 Blood Pressure Pulse Oximetry Oxygen Delivery Method Oxygen Delivery Flow Rate Fraction of Inspired Oxygen 04/18/23 00:50 04/18/23 01:00 04/18/23 01:10 Temperature Pulse Rate 56 L 56 L 54 L Pulse Rate [Monitor Left] Respiratory Rate 18 18 16 Blood Pressure Pulse Oximetry Oxygen Delivery Method Oxygen Delivery Flow Rate Fraction of Inspired Oxygen 04/18/23 01:20 04/18/23 01:30 04/18/23 01:40 Temperature Pulse Rate 56 L 54 L 56 L Pulse Rate [Monitor Left] Respiratory Rate 12 18 16 Blood Pressure Pulse Oximetry Oxygen Delivery Method Oxygen Delivery Flow Rate Fraction of Inspired Oxygen 04/18/23 01:50 04/18/23 02:00 04/18/23 02:10 Temperature Pulse Rate 54 L 56 L 52 L Pulse Rate [Monitor Left] Respiratory Rate 16 16 14 Blood Pressure Pulse Oximetry Oxygen Delivery Method Oxygen Delivery Flow Rate Fraction of Inspired Oxygen 04/18/23 02:20 04/18/23 02:30 04/18/23 02:40 Temperature Pulse Rate 51 L 52 L 51 L Pulse Rate [Monitor Left] Respiratory Rate 15 21 17 Blood Pressure Pulse Oximetry Oxygen Delivery Method Oxygen Delivery Flow Rate Fraction of Inspired Oxygen 04/18/23 02:50 04/18/23 03:00 04/18/23 03:10 Temperature Pulse Rate 54 L 52 L 53 L Pulse Rate [Monitor Left] Respiratory Rate 17 24 20 Blood Pressure Pulse Oximetry Oxygen Delivery Method Oxygen Delivery Flow Rate Fraction of Inspired Oxygen 04/18/23 03:20 04/18/23 03:30 04/18/23 03:40 Temperature Pulse Rate 55 L 51 L 54 L Pulse Rate [Monitor Left] Respiratory Rate 18 15 17 Blood Pressure Pulse Oximetry Oxygen Delivery Method Oxygen Delivery Flow Rate Fraction of Inspired Oxygen 04/18/23 03:50 04/18/23 04:00 04/18/23 04:06 Temperature 97.7 F Pulse Rate 54 L 56 L Pulse Rate [Monitor Left] Respiratory Rate 14 18 Blood Pressure 140/74 H Pulse Oximetry 89 L Oxygen Delivery Method BIPAP Oxygen Delivery Flow Rate Fraction of Inspired Oxygen 04/18/23 04:06 04/18/23 04:10 04/18/23 05:23 Temperature Pulse Rate 60 58 L 52 L Pulse Rate [Monitor Left] Respiratory Rate 22 17 Blood Pressure Pulse Oximetry 91 L Oxygen Delivery Method Oxygen Delivery Flow Rate Fraction of Inspired Oxygen 04/18/23 05:23 04/18/23 07:11 04/18/23 07:00 Temperature Pulse Rate 56 L Pulse Rate [Monitor Left] Respiratory Rate Blood Pressure Pulse Oximetry 92 L 92 L Oxygen Delivery Method Nasal Cannula Vapotherm Oxygen Delivery Flow Rate 3 40 Fraction of Inspired Oxygen 100 55 Documenting provider has reviewed patient's vital signs: yes Common normals: no apparent distress Exam limitations: altered mental status General appearance: cooperative and comfortable HENMT Other: Wearing Vapotherm nasal cannula Chest Chest: symmetrical chest wall rise; no crepitus Respiratory Other: Diminished breath sounds, but slightly more air movement than yesterday. Diffuse crackles, but less loud rhonchi noted. No wheezes. Cardio Rate: regular rate Rhythm: regular rhythm GI Common normals: soft to palpation Extremity Common normals: no clubbing, cyanosis or edema Neuro Common normals: moves all extremities Sensorium/orientation: awake and alert Psych Attitude: calm (Patient has been pleasant and friendly to all despite her severe illness.)
--- NOTE | 2023-04-18 07:51 | XR_ITS ---
The [address] [address] Patient Name: JHONATAN MONTOYA MRN: [facility]:[id number] date: 1955 Sex: F Assigned Patient Location: ICU Current Patient Location: ICU Accession/Order Number: [id number] Exam Date: 04/18/2023 09:53 Report Date: 04/18/2023 11:03 At the request of: SHAIKH LUCITA Procedure: XR chest 1V EXAM: XR chest 1V HISTORY: SOB COMPARISON: None. TECHNIQUE: AP view of the chest. FINDINGS/IMPRESSION: Cardiomegaly with decreasing congestion. Bibasilar airspace disease, unchanged. No pneumothorax or pleural effusion. Electronically authenticated by: MEGHAN ALVARADO Date: 04/18/2023 11:03
[2023-04-18] MEDS: INSULIN ASPART 300 UNIT/3 ML PEN SUBQ ×4 (07:59→21:48)
[2023-04-18] MEDS: INSULIN DETEMIR 300 UNIT/3 ML INSULN.PEN 20 UNIT SUBQ ×2 (08:00→21:43)
[2023-04-18] MEDS: SOLIFENACIN SUCCINATE 5 MG TABLET PO (08:01)
[2023-04-18] MEDS: OMEPRAZOLE 40 MG CAPSULE.DR PO (08:01)
[2023-04-18] MEDS: AMLODIPINE BESYLATE 5 MG TABLET PO (08:02)
[2023-04-18] MEDS: GABAPENTIN 300 MG CAPSULE PO ×2 (08:02→21:43)
[2023-04-18] MEDS: MONTELUKAST SODIUM 10 MG TABLET PO (08:02)
[2023-04-18] MEDS: CETIRIZINE HCL 10 MG TABLET 20 MG PO (08:02)
[2023-04-18] MEDS: CHOLECALCIFEROL (VITAMIN D3) 25 MCG/1,000 UNITS TABLET PO (08:02)
[2023-04-18] MEDS: MAGNESIUM OXIDE 400 MG TABLET PO (08:02)
--- NOTE | 2023-04-18 10:05 | REH.PTDLY ---
Physical Therapy Daily Note PT Daily Note/Assess Start: 04/18/23 09:49 Freq: Status: Active Protocol: Document 04/18/23 08:20 [id number] (Rec: 04/18/23 10:05 [id number] Physical Therapy Daily Note/Assessment Time In 08:05 Time Out 08:16 Pain Level 0 Subjective Pt reports feeling a little better, willing to do therapy. Still on vapotherm Therapeutic Exercise Minutes (minutes) 7 Therapeutic Exercise Units 1 Therapeutic Exercise Treatment Instructed in B LE supine exs 10x ea. Needs AA with L LE SLR due to weakness. Seated B LE LAQ, marching, hip abd and hip add squeeze 10x Therapeutic Activity Minutes (minutes) 4 Therapeutic Activity Units 0 Bed Mobility Ability Standby Assistance Therapeutic Activity Comments Pt does well with bed mobility and sit to stand transfers performing SBA. Static standing tolerance of 2 mins. SpO2 varies from 89-92% on vapotherm. Total Therapy Minutes 11 Total Physical Therapy Units 1 Daily Note Summary Pt fatigues with standing tolerance. Weakness noted in L LE with exs. Limited in mobility due to vapotherm. Stays sitting bedside to eat breakfast with nursing notified.
--- NOTE | 2023-04-18 11:14 | RESP.RT ---
decreased FiO2 from 100% to 95%
--- NOTE | 2023-04-18 11:17 | CA_ITS ---
Patient Name Site Name JHONATAN MONTOYA The [facility] Account No Medical Record Number Age Sex Date Time [id number] [facility]:[id number] F 04/18/2023 13:37 At the Request Of BO MCCLAIN ECHOCARDIOGRAM REPORT PROCEDURE: CA ECHO DOPPLER COMPLETE INDICATIONS: Respiratory failure/SOB, dilated PA on CTA (3.8cm) COMPARISON: None. DESCRIPTION: COMPLETE ECHOCARDIOGRAM Real-time transthoracic echocardiography with 2D, M-mode, spectral and color flow Doppler performed. QUALITY: Technical quality was adequate. LEFT VENTRICLE: Normal chamber size. Borderline left ventricular hypertrophy. Global left ventricular systolic function is normal. LV EF: Estimated left ventricular ejection fraction is 55% DIASTOLIC: Grade I diastolic dysfunction. ATRIAL SEPTUM: LEFT ATRIUM: Normal chamber size. RIGHT ATRIUM: Normal chamber size. RIGHT VENTRICLE: Moderately dilated with free wall hypertrophy. Mildly reduced right ventricular systolic function. TRICUSPID VALVE: Normal mobility and thickness. No stenosis with trivial regurgitation. Severe pulmonary hypertension. RVSP 72 mmHg MITRAL VALVE: Normal mobility and thickness. No evidence of mitral valve stenosis. There is no mitral annular calcification. No mitral regurgitation. AORTIC VALVE: Normal trileaflet appearance. No visible sclerosis. Normal leaflet mobility. No evidence of aortic valve stenosis. Trivial aortic regurgitation. AORTIC ROOT: Normal diameter and appearance. PULMONIC VALVE: Normal thickness and mobility. No stenosis. Trivial regurgitation. Dilatation of the Pulmonary artery measuring 3.7cm. PERICARDIUM: No pericardial effusion. IVC: Moderate dilatation, measuring 2.5 cm with no collapse. PLEURA: CONCLUSION: 1. Left ventricular systolic function is normal. LVEF is 55%. 2. Moderately dilated right ventricle with free wall hypertrophy and mildly reduced systolic function. 3. No significant valvular dysfunction. 4. Severely elevated right-sided pressures. RVSP is 72 mmHg. 5. No pericardial effusion. Adult Echocardiography Procedure Report Left Ventricle LVEDD (3.7 - 5.6 cm): 5.63 cm LVESD (2.2 - 4.0 cm): 3.53 cm LVIVS thickness (0.6 - 1.2 cm): 0.97 cm LVPW thickness (0.5 - 1.0 cm): 1.01 cm e': 0.05 m/s E - e': 9.50 LVOT Max Gradient: 5.68 mm[Hg] LVOT Area (cm2): 1.19 m/s Peak Velocity (LVOT): 1.19 m/s Mean Velocity (LVOT): 0.74 m/s LVOT Diameter 1.97 cm Left Ventricular Ejection Fraction: 55 % Left Atrium LA Volume Index (2D A2C): 33.93 ml/m2 Left Atrium Systolic Dimension: 3.57 cm Mitral Valve MV E to A Ratio: 0.80 Mitral Valve A-Wave Peak Velocity: 0.64 m/s Mitral Valve E-Wave Peak Velocity: 0.52 m/s Right Ventricle RV Internal Diastolic Dimension: 4.06 cm Aorta AO Root Diam: 3.18 cm Ascending Ao Diam: 3.45 cm Aortic Valve AoV Area (Peak Rafita): 2.45 cm2, 2.45 cm2 AoV Area (VTI): 2.40 cm2, 2.40 cm2 Peak Velocity(Antegrade Flow): 1.48 m/s Peak Gradient(Antegrade Flow): 8.80 mm[Hg] Mean Velocity(Antegrade Flow): 0.99 m/s Mean Gradient(Antegrade Flow): 4.48 mm[Hg] Velocity Time Integral: 29.41 cm Tricuspid Valve Peak Velocity (Regurgitant Flow): 3.13 m/s, 2.95 m/s, 3.76 m/s Pulmonic Valve Mean Gradient: 3.71 mm[Hg] Mean Velocity: 0.89 m/s Peak Velocity: 1.49 m/s, 1.32 m/s Peak Gradient: 7.01 mm[Hg], 8.91 mm[Hg] Right Atrium Right Atrium Systolic Pressure: 46.51 ml, 46.51 ml Dictated by: Jim Limon M.D. on 04/18/2023 at 19:00 Approved by: Jim Limon M.D. on 04/18/2023 at 19:06
--- NOTE | 2023-04-18 12:19 | CM.NOTE ---
Rounds made with Dr. Ohara, pt having CTA of chest today. No discharge and will continue to try to wean vapotherm.
--- NOTE | 2023-04-18 12:36 | P.IMPN_ITS ---
Progress Note: A&P Assessment and Plan (1) COVID-19: Assessment and Plan: Persistent hypoxemia, no clinical improvement. But also not worse. (2) Hypertension: Assessment and Plan: C/w amlodipine. At goal HCTZ on hold Qualifiers: Hypertension type: primary hypertension Qualified Code(s): I10 - Essent ial (primary) hypertension (3) Chronic low back pain: Assessment and Plan: On gabapentin. C/w same Qualifiers: Back pain laterality: midline Sciatica presence: without sciatica Qualified Code(s): M54.50 - Low back pain, unspecified; G89.29 - Other chronic pain (4) Asthma with acute exacerbation: Assessment and Plan: Severe persistent asthma at baseline. On trelegy as outpatient. Currently on mucomyst, mucinex, solumedrol and duonebs. No wheezing on exam. Qualifiers: Asthma severity: severe Asthma persistence: persistent Qualified Code(s): J45.51 - Severe persistent asthma with (acute) exacerbation (5) Respiratory failure with hypoxia: Assessment and Plan: Encourage prone positioning. C/w current treatment. Monitor closely. CTA ordered by Pulm to r/o CTA. s/p Levaquin for empirical antibacterial coverage against bacterial PNA. Qualifiers: Chronicity: acute Qualified Code(s): J96.01 - Acute respiratory failure with hypoxia (6) Depression: Assessment and Plan: C/w Trazodone and Paxil Qualifiers: Depression Type: major depressive disorder Major depression recurrence: recurrent Active/Remission status: in full remission Qualified Code(s): F33.42 - Major depressive disorder, recurrent, in full remission (7) Hypokalemia: Assessment and Plan: Improved. C/w oral potassium (8) JEANNE (acute kidney injury): Assessment and Plan: likely from diuresis. resolved with IV hydration (9) Dehydration determined by examination: Assessment and Plan: Improved with IV hydration. Poor Po intake. Internal Medicine - PN: Subj Subjective Interval history: Seen and examined. No overnight events. On 100 % FiO2. No sig clinical change. CTA ordered by Pulm Exam Constitutional Vital Signs - 24 hr 04/17/23 13:46 04/17/23 15:22 04/17/23 15:22 Temperature Pulse Rate 71 68 Pulse Rate [Monitor Left] Respiratory Rate Blood Pressure Pulse Oximetry 92 L 92 L Oxygen Delivery Method Vapotherm Oxygen Delivery Flow Rate 40 Fraction of Inspired Oxygen 55 100 04/17/23 14:25 04/17/23 16:06 04/17/23 12:40 Temperature 98.7 F Pulse Rate 69 70 71 Pulse Rate [Monitor Left] Respiratory Rate 23 Blood Pressure Pulse Oximetry 93 L Oxygen Delivery Method Oxygen Delivery Flow Rate Fraction of Inspired Oxygen 04/17/23 12:50 04/17/23 13:00 04/17/23 13:10 Temperature Pulse Rate 72 73 70 Pulse Rate [Monitor Left] Respiratory Rate 24 21 19 Blood Pressure Pulse Oximetry Oxygen Delivery Method Oxygen Delivery Flow Rate Fraction of Inspired Oxygen 04/17/23 13:20 04/17/23 13:30 04/17/23 13:40 Temperature Pulse Rate 71 69 69 Pulse Rate [Monitor Left] Respiratory Rate 23 21 24 Blood Pressure Pulse Oximetry Oxygen Delivery Method Oxygen Delivery Flow Rate Fraction of Inspired Oxygen 04/17/23 13:50 04/17/23 14:00 04/17/23 14:10 Temperature Pulse Rate 73 75 70 Pulse Rate [Monitor Left] Respiratory Rate 30 H 25 H 24 Blood Pressure Pulse Oximetry Oxygen Delivery Method Oxygen Delivery Flow Rate Fraction of Inspired Oxygen 04/17/23 14:20 04/17/23 14:30 04/17/23 14:40 Temperature Pulse Rate 71 75 73 Pulse Rate [Monitor Left] Respiratory Rate 17 23 22 Blood Pressure Pulse Oximetry Oxygen Delivery Method Oxygen Delivery Flow Rate Fraction of Inspired Oxygen 04/17/23 14:50 04/17/23 15:00 04/17/23 15:10 Temperature Pulse Rate 69 67 69 Pulse Rate [Monitor Left] Respiratory Rate 23 24 24 Blood Pressure Pulse Oximetry Oxygen Delivery Method Oxygen Delivery Flow Rate Fraction of Inspired Oxygen 04/17/23 15:20 04/17/23 15:30 04/17/23 15:40 Temperature Pulse Rate 66 68 69 Pulse Rate [Monitor Left] Respiratory Rate 20 23 23 Blood Pressure Pulse Oximetry Oxygen Delivery Method Oxygen Delivery Flow Rate Fraction of Inspired Oxygen 04/17/23 15:50 04/17/23 16:00 04/17/23 16:01 Temperature Pulse Rate 70 68 Pulse Rate [Monitor Left] Respiratory Rate 22 26 H Blood Pressure 137/69 H Pulse Oximetry 94 L Oxygen Delivery Method Oxygen Delivery Flow Rate Fraction of Inspired Oxygen 04/17/23 16:01 04/17/23 16:01 04/17/23 16:10 Temperature Pulse Rate 69 70 Pulse Rate [Monitor Left] Respiratory Rate 24 Blood Pressure 137/69 H Pulse Oximetry 94 L Oxygen Delivery Method Oxygen Delivery Flow Rate Fraction of Inspired Oxygen 04/17/23 16:01 04/17/23 16:01 04/17/23 16:10 Temperature Pulse Rate 70 Pulse Rate [Monitor Left] Respiratory Rate 23 Blood Pressure 137/69 H 137/69 H Pulse Oximetry 93 L 94 L Oxygen Delivery Method Oxygen Delivery Flow Rate Fraction of Inspired Oxygen 04/17/23 17:12 04/17/23 19:26 04/17/23 19:00 Temperature Pulse Rate 69 68 71 Pulse Rate [Monitor Left] Respiratory Rate 20 Blood Pressure Pulse Oximetry 93 L 93 L Oxygen Delivery Method Vapotherm Oxygen Delivery Flow Rate 40 Fraction of Inspired Oxygen 100 04/17/23 19:49 04/17/23 19:49 04/17/23 19:41 Temperature Pulse Rate 77 Pulse Rate [Monitor Left] 77 Respiratory Rate Blood Pressure Pulse Oximetry 93 L 93 L Oxygen Delivery Method Nasal Cannula Oxygen Delivery Flow Rate 3 Fraction of Inspired Oxygen 04/17/23 21:00 04/17/23 22:04 04/17/23 16:20 Temperature Pulse Rate 67 62 67 Pulse Rate [Monitor Left] Respiratory Rate 20 Blood Pressure Pulse Oximetry 96 97 Oxygen Delivery Method Oxygen Delivery Flow Rate Fraction of Inspired Oxygen 04/17/23 16:30 04/17/23 16:40 04/17/23 16:50 Temperature Pulse Rate 68 66 68 Pulse Rate [Monitor Left] Respiratory Rate 23 23 23 Blood Pressure Pulse Oximetry Oxygen Delivery Method Oxygen Delivery Flow Rate Fraction of Inspired Oxygen 04/17/23 17:00 04/17/23 17:10 04/17/23 17:20 Temperature Pulse Rate 102 H Pulse Rate [Monitor Left] Respiratory Rate 29 H 22 22 Blood Pressure Pulse Oximetry Oxygen Delivery Method Oxygen Delivery Flow Rate Fraction of Inspired Oxygen 04/17/23 17:30 04/17/23 17:40 04/17/23 17:50 Temperature Pulse Rate 69 79 74 Pulse Rate [Monitor Left] Respiratory Rate 22 19 22 Blood Pressure Pulse Oximetry Oxygen Delivery Method Oxygen Delivery Flow Rate Fraction of Inspired Oxygen 04/17/23 18:00 04/17/23 18:10 04/17/23 18:20 Temperature Pulse Rate 72 107 H 73 Pulse Rate [Monitor Left] Respiratory Rate 20 14 19 Blood Pressure Pulse Oximetry Oxygen Delivery Method Oxygen Delivery Flow Rate Fraction of Inspired Oxygen 04/17/23 18:30 04/17/23 18:40 04/17/23 18:50 Temperature Pulse Rate 73 74 73 Pulse Rate [Monitor Left] Respiratory Rate 21 19 21 Blood Pressure Pulse Oximetry Oxygen Delivery Method Oxygen Delivery Flow Rate Fraction of Inspired Oxygen 04/17/23 19:00 04/17/23 19:07 04/17/23 19:07 Temperature 98.5 F Pulse Rate 96 H 69 Pulse Rate [Monitor Left] Respiratory Rate 22 14 Blood Pressure 144/83 H Pulse Oximetry 96 Oxygen Delivery Method Oxygen Delivery Flow Rate 40 Fraction of Inspired Oxygen 100 04/17/23 19:07 04/17/23 19:10 04/17/23 19:20 Temperature Pulse Rate 70 69 Pulse Rate [Monitor Left] Respiratory Rate 17 21 Blood Pressure 144/83 H Pulse Oximetry 94 L Oxygen Delivery Method Oxygen Delivery Flow Rate Fraction of Inspired Oxygen 04/17/23 19:30 04/17/23 19:40 04/17/23 19:50 Temperature Pulse Rate 72 75 Pulse Rate [Monitor Left] Respiratory Rate 25 H 24 23 Blood Pressure Pulse Oximetry Oxygen Delivery Method Oxygen Delivery Flow Rate Fraction of Inspired Oxygen 04/17/23 20:00 04/17/23 20:10 04/17/23 20:20 Temperature Pulse Rate 90 72 70 Pulse Rate [Monitor Left] Respiratory Rate 22 19 19 Blood Pressure Pulse Oximetry Oxygen Delivery Method Oxygen Delivery Flow Rate Fraction of Inspired Oxygen 04/17/23 20:30 04/17/23 20:40 04/17/23 20:50 Temperature Pulse Rate 69 84 68 Pulse Rate [Monitor Left] Respiratory Rate 23 19 20 Blood Pressure Pulse Oximetry Oxygen Delivery Method Oxygen Delivery Flow Rate Fraction of Inspired Oxygen 04/17/23 21:00 04/17/23 21:10 04/17/23 21:20 Temperature Pulse Rate 68 69 66 Pulse Rate [Monitor Left] Respiratory Rate 20 19 20 Blood Pressure Pulse Oximetry Oxygen Delivery Method Oxygen Delivery Flow Rate Fraction of Inspired Oxygen 04/17/23 21:30 04/17/23 21:40 04/17/23 23:09 Temperature Pulse Rate 66 79 60 Pulse Rate [Monitor Left] Respiratory Rate 20 34 H Blood Pressure Pulse Oximetry 94 L Oxygen Delivery Method Oxygen Delivery Flow Rate Fraction of Inspired Oxygen 04/17/23 23:09 04/17/23 23:09 04/17/23 22:54 Temperature Pulse Rate 61 63 Pulse Rate [Monitor Left] 60 Respiratory Rate 20 Blood Pressure Pulse Oximetry 94 L 96 Oxygen Delivery Method Vapotherm Oxygen Delivery Flow Rate 40 Fraction of Inspired Oxygen 55 100 04/17/23 21:50 04/17/23 22:00 04/17/23 22:10 Temperature Pulse Rate 86 63 62 Pulse Rate [Monitor Left] Respiratory Rate 9 L 20 18 Blood Pressure Pulse Oximetry Oxygen Delivery Method Oxygen Delivery Flow Rate Fraction of Inspired Oxygen 04/17/23 22:20 04/17/23 22:30 04/17/23 22:40 Temperature Pulse Rate 63 65 64 Pulse Rate [Monitor Left] Respiratory Rate 17 19 19 Blood Pressure Pulse Oximetry Oxygen Delivery Method Oxygen Delivery Flow Rate Fraction of Inspired Oxygen 04/17/23 22:50 04/17/23 22:54 04/17/23 22:54 Temperature 98.7 F Pulse Rate 60 61 Pulse Rate [Monitor Left] Respiratory Rate 18 19 Blood Pressure 132/76 H Pulse Oximetry 94 L Oxygen Delivery Method Oxygen Delivery Flow Rate Fraction of Inspired Oxygen 04/17/23 23:00 04/17/23 23:10 04/17/23 23:56 Temperature Pulse Rate 61 60 56 L Pulse Rate [Monitor Left] Respiratory Rate 21 19 Blood Pressure Pulse Oximetry 93 L Oxygen Delivery Method Oxygen Delivery Flow Rate Fraction of Inspired Oxygen 04/18/23 01:00 04/18/23 02:25 04/18/23 03:13 Temperature Pulse Rate 54 L 52 L 52 L Pulse Rate [Monitor Left] Respiratory Rate Blood Pressure Pulse Oximetry 92 L 92 L 93 L Oxygen Delivery Method Oxygen Delivery Flow Rate Fraction of Inspired Oxygen 04/18/23 03:49 04/18/23 03:58 04/18/23 04:03 Temperature Pulse Rate 57 L 57 L 58 L Pulse Rate [Monitor Left] Respiratory Rate 20 18 Blood Pressure Pulse Oximetry 91 L 91 L 90 L Oxygen Delivery Method BIPAP BIPAP Oxygen Delivery Flow Rate Fraction of Inspired Oxygen 55 55 55 04/18/23 04:33 04/17/23 23:20 04/17/23 23:30 Temperature Pulse Rate 56 L 61 58 L Pulse Rate [Monitor Left] Respiratory Rate 16 18 Blood Pressure Pulse Oximetry 91 L Oxygen Delivery Method Oxygen Delivery Flow Rate Fraction of Inspired Oxygen 04/17/23 23:40 04/17/23 23:50 04/18/23 00:00 Temperature Pulse Rate 56 L 57 L 56 L Pulse Rate [Monitor Left] Respiratory Rate 16 18 15 Blood Pressure Pulse Oximetry Oxygen Delivery Method Oxygen Delivery Flow Rate Fraction of Inspired Oxygen 04/18/23 00:10 04/18/23 00:20 04/18/23 00:30 Temperature Pulse Rate 55 L 54 L 54 L Pulse Rate [Monitor Left] Respiratory Rate 16 15 16 Blood Pressure Pulse Oximetry Oxygen Delivery Method Oxygen Delivery Flow Rate Fraction of Inspired Oxygen 04/18/23 00:40 04/18/23 00:50 04/18/23 01:00 Temperature Pulse Rate 55 L 56 L 56 L Pulse Rate [Monitor Left] Respiratory Rate 18 18 18 Blood Pressure Pulse Oximetry Oxygen Delivery Method Oxygen Delivery Flow Rate Fraction of Inspired Oxygen 04/18/23 01:10 04/18/23 01:20 04/18/23 01:30 Temperature Pulse Rate 54 L 56 L 54 L Pulse Rate [Monitor Left] Respiratory Rate 16 12 18 Blood Pressure Pulse Oximetry Oxygen Delivery Method Oxygen Delivery Flow Rate Fraction of Inspired Oxygen 04/18/23 01:40 04/18/23 01:50 04/18/23 02:00 Temperature Pulse Rate 56 L 54 L 56 L Pulse Rate [Monitor Left] Respiratory Rate 16 16 16 Blood Pressure Pulse Oximetry Oxygen Delivery Method Oxygen Delivery Flow Rate Fraction of Inspired Oxygen 04/18/23 02:10 04/18/23 02:20 04/18/23 02:30 Temperature Pulse Rate 52 L 51 L 52 L Pulse Rate [Monitor Left] Respiratory Rate 14 15 21 Blood Pressure Pulse Oximetry Oxygen Delivery Method Oxygen Delivery Flow Rate Fraction of Inspired Oxygen 04/18/23 02:40 04/18/23 02:50 04/18/23 03:00 Temperature Pulse Rate 51 L 54 L 52 L Pulse Rate [Monitor Left] Respiratory Rate 17 17 24 Blood Pressure Pulse Oximetry Oxygen Delivery Method Oxygen Delivery Flow Rate Fraction of Inspired Oxygen 04/18/23 03:10 04/18/23 03:20 04/18/23 03:30 Temperature Pulse Rate 53 L 55 L 51 L Pulse Rate [Monitor Left] Respiratory Rate 20 18 15 Blood Pressure Pulse Oximetry Oxygen Delivery Method Oxygen Delivery Flow Rate Fraction of Inspired Oxygen 04/18/23 03:40 04/18/23 03:50 04/18/23 04:00 Temperature Pulse Rate 54 L 54 L 56 L Pulse Rate [Monitor Left] Respiratory Rate 17 14 18 Blood Pressure Pulse Oximetry Oxygen Delivery Method Oxygen Delivery Flow Rate Fraction of Inspired Oxygen 04/18/23 04:06 04/18/23 04:06 04/18/23 04:10 Temperature 97.7 F Pulse Rate 60 58 L Pulse Rate [Monitor Left] Respiratory Rate 22 17 Blood Pressure 140/74 H Pulse Oximetry 89 L Oxygen Delivery Method BIPAP Oxygen Delivery Flow Rate Fraction of Inspired Oxygen 04/18/23 05:23 04/18/23 05:23 04/18/23 07:11 Temperature Pulse Rate 52 L Pulse Rate [Monitor Left] Respiratory Rate Blood Pressure Pulse Oximetry 91 L 92 L Oxygen Delivery Method Nasal Cannula Vapotherm Oxygen Delivery Flow Rate 3 40 Fraction of Inspired Oxygen 100 04/18/23 07:00 04/18/23 07:42 04/18/23 07:00 Temperature 97.8 F Pulse Rate 56 L 61 61 Pulse Rate [Monitor Left] Respiratory Rate 22 Blood Pressure Pulse Oximetry 92 L 92 L Oxygen Delivery Method Vapotherm Oxygen Delivery Flow Rate Fraction of Inspired Oxygen 55 04/18/23 04:20 04/18/23 04:30 04/18/23 04:40 Temperature Pulse Rate 57 L 56 L 55 L Pulse Rate [Monitor Left] Respiratory Rate 16 16 17 Blood Pressure Pulse Oximetry Oxygen Delivery Method Oxygen Delivery Flow Rate Fraction of Inspired Oxygen 04/18/23 04:50 04/18/23 05:00 04/18/23 05:10 Temperature Pulse Rate 55 L 55 L 54 L Pulse Rate [Monitor Left] Respiratory Rate 16 16 17 Blood Pressure Pulse Oximetry Oxygen Delivery Method Oxygen Delivery Flow Rate Fraction of Inspired Oxygen 04/18/23 05:20 04/18/23 05:30 04/18/23 05:40 Temperature Pulse Rate 54 L 54 L 55 L Pulse Rate [Monitor Left] Respiratory Rate 16 18 19 Blood Pressure Pulse Oximetry Oxygen Delivery Method Oxygen Delivery Flow Rate Fraction of Inspired Oxygen 04/18/23 05:50 04/18/23 06:00 04/18/23 06:10 Temperature Pulse Rate 56 L 63 56 L Pulse Rate [Monitor Left] Respiratory Rate 16 20 20 Blood Pressure Pulse Oximetry Oxygen Delivery Method Oxygen Delivery Flow Rate Fraction of Inspired Oxygen 04/18/23 06:20 04/18/23 06:30 04/18/23 06:40 Temperature Pulse Rate 56 L 56 L 57 L Pulse Rate [Monitor Left] Respiratory Rate 17 15 15 Blood Pressure Pulse Oximetry Oxygen Delivery Method Oxygen Delivery Flow Rate Fraction of Inspired Oxygen 04/18/23 06:50 04/18/23 07:00 04/18/23 07:10 Temperature Pulse Rate 55 L 53 L 65 Pulse Rate [Monitor Left] Respiratory Rate 20 17 23 Blood Pressure Pulse Oximetry Oxygen Delivery Method Oxygen Delivery Flow Rate Fraction of Inspired Oxygen 04/18/23 07:20 04/18/23 07:21 04/18/23 07:21 Temperature Pulse Rate 67 67 Pulse Rate [Monitor Left] Respiratory Rate 13 16 Blood Pressure 147/77 H Pulse Oximetry 92 L Oxygen Delivery Method Oxygen Delivery Flow Rate Fraction of Inspired Oxygen 04/18/23 07:30 04/18/23 07:40 04/18/23 08:02 Temperature Pulse Rate 65 64 Pulse Rate [Monitor Left] Respiratory Rate 18 18 Blood Pressure 147/77 H Pulse Oximetry Oxygen Delivery Method Oxygen Delivery Flow Rate Fraction of Inspired Oxygen 04/18/23 06:00 04/18/23 09:00 04/18/23 10:10 Temperature Pulse Rate 75 71 Pulse Rate [Monitor Left] Respiratory Rate Blood Pressure Pulse Oximetry Oxygen Delivery Method BIPAP Oxygen Delivery Flow Rate Fraction of Inspired Oxygen 04/18/23 11:12 04/18/23 11:00 04/18/23 07:50 Temperature Pulse Rate 64 63 Pulse Rate [Monitor Left] Respiratory Rate 16 Blood Pressure Pulse Oximetry 93 L Oxygen Delivery Method Vapotherm Oxygen Delivery Flow Rate 40 Fraction of Inspired Oxygen 100 04/18/23 08:00 04/18/23 08:10 04/18/23 08:20 Temperature Pulse Rate 61 69 77 Pulse Rate [Monitor Left] Respiratory Rate 17 22 19 Blood Pressure Pulse Oximetry Oxygen Delivery Method Oxygen Delivery Flow Rate Fraction of Inspired Oxygen 04/18/23 08:30 04/18/23 08:40 04/18/23 08:50 Temperature Pulse Rate 77 83 76 Pulse Rate [Monitor Left] Respiratory Rate 18 11 L 17 Blood Pressure Pulse Oximetry Oxygen Delivery Method Oxygen Delivery Flow Rate Fraction of Inspired Oxygen 04/18/23 09:00 04/18/23 09:10 04/18/23 09:20 Temperature Pulse Rate 76 73 74 Pulse Rate [Monitor Left] Respiratory Rate 12 15 22 Blood Pressure Pulse Oximetry Oxygen Delivery Method Oxygen Delivery Flow Rate Fraction of Inspired Oxygen 04/18/23 09:30 04/18/23 09:40 04/18/23 09:50 Temperature Pulse Rate 75 78 67 Pulse Rate [Monitor Left] Respiratory Rate 26 H 29 H 10 L Blood Pressure Pulse Oximetry Oxygen Delivery Method Oxygen Delivery Flow Rate Fraction of Inspired Oxygen 04/18/23 10:00 04/18/23 10:10 04/18/23 10:20 Temperature Pulse Rate 74 71 Pulse Rate [Monitor Left] Respiratory Rate 26 H 13 27 H Blood Pressure Pulse Oximetry Oxygen Delivery Method Oxygen Delivery Flow Rate Fraction of Inspired Oxygen 04/18/23 10:30 04/18/23 10:40 04/18/23 10:50 Temperature Pulse Rate 70 66 66 Pulse Rate [Monitor Left] Respiratory Rate 18 20 21 Blood Pressure Pulse Oximetry Oxygen Delivery Method Oxygen Delivery Flow Rate Fraction of Inspired Oxygen 04/18/23 11:00 04/18/23 11:10 04/18/23 11:15 Temperature 98.0 F Pulse Rate 65 85 Pulse Rate [Monitor Left] Respiratory Rate 16 52 H Blood Pressure 140/76 H Pulse Oximetry 91 L Oxygen Delivery Method Oxygen Delivery Flow Rate Fraction of Inspired Oxygen 04/18/23 11:15 04/18/23 11:15 04/18/23 12:10 Temperature Pulse Rate 65 59 L Pulse Rate [Monitor Left] Respiratory Rate 21 Blood Pressure 140/76 H Pulse Oximetry 92 L Oxygen Delivery Method Oxygen Delivery Flow Rate Fraction of Inspired Oxygen Documenting provider has reviewed patient's vital signs: yes Common normals: oriented x3 Nutritional appearance: obese Orientation/consciousness: Yes awake Other: appears sick and tired [facility] Common normals: normocephalic and head/scalp atraumatic Other: Wearing BiPAP Mask Eye Common normals: conjunctivae normal and no scleral icterus Chest Other: Palpable rhonchi Respiratory Other: Normal RR, coarse breath sounds at bases, no wheezing. No resp distress Cardio Common normals: regular rhythm, S1 normal heart sound and S2 normal heart sound Rate: regular rate Rhythm: regular rhythm GI Common normals: Normal to inspection, nondistended, normoactive bowel sounds present Extremity Common normals: no clubbing, cyanosis or edema Neuro Common normals: moves all extremities and no focal motor deficits Psych Common normals: mental status grossly normal, thought process normal, denies homicidal ideation and denies suicidal ideation Attitude: calm Internal Medicine - PN: Obj Da Labs Labs: Laboratory Results - last 24 hr 06/13/23 03:55 WBC 12.4 H RBC 4.33 Hgb 13.3 Hct 38.8 MCV 89.6 MCH 30.7 MCHC 34.3 RDW 11.6 Plt Count 176 MPV 9.8 Neut % (Auto) 89.0 H Lymph % (Auto) 4.[address] [facility] % (Auto) 3.9 Eos % (Auto) 0.0 L Baso % (Auto) 0.2 Neut # (Auto) 11.1 H Lymph # (Auto) 0.[address] [facility] # (Auto) 0.5 Eos # (Auto) 0.0 Baso # (Auto) 0.0 Abs Immat Gran (auto) 0.25 H Imm/Tot Granulo (auto) 2.0 H Sodium 138 Potassium 4.4 Chloride 101 Carbon Dioxide 32.8 H Anion Gap 8.6 BUN 31.0 H Creatinine 0.89 Est GFR ( Amer) >60 Est GFR (Non-Af Amer) >60 BUN/Creatinine Ratio 34.8 Glucose 184 H Calcium 8.2 L Total Bilirubin 0.3 AST 24 ALT 121 H Alkaline Phosphatase 70 Total Protein 5.6 L Albumin 2.5 L Globulin 3.1 Albumin/Globulin Ratio 0.8 Urinary Catheter Management Urinary Catheter Management Urethral: Cath placed during this visit: yes Urethral indwelling: No Reason for continuing: other continuation reason Insertion date: 04/14/23 Insertion time: 11:59
[2023-04-18] MEDS: BACLOFEN 10 MG TABLET 5 MG PO (21:44)
[2023-04-18] MEDS: PAROXETINE HCL 20 MG TABLET PO (21:46)
[2023-04-18] MEDS: TRAZODONE HCL 50 MG TABLET PO (21:46)
[2023-04-19] VITALS (105 sets, daily range): BP systolic 124–140; BP diastolic 67–87; PULSE 57–134; RESP 11–41; TEMP 36.5–36.7; O2SAT 91–98
[2023-04-19] MEDS: METHYLPREDNISOLONE SOD SUCC PF 125 MG/2 ML VIAL 60 MG IVP ×4 (02:10→22:25)
[2023-04-19] MEDS: ACETYLCYSTEINE 400 MG/4 ML VIAL 200 MG IH ×6 (03:54→22:09)
[2023-04-19] MEDS: IPRATROPIUM/ALBUTEROL SULFATE 3 ML AMPUL.NEB IH ×6 (03:54→22:09)
[2023-04-19 04:24] LABS: Basophils Percent Auto 0.2 % (0.2-2.0); Hematocrit 37.4 % (36.0-48.0); Hemoglobin 12.6 g/dL (12.0-16.0); Immature Granulocytes Pct Auto 1.7 % (0.0-0.5); Lymphocytes Absolute Auto 0.6 10^3/uL (1.2-3.8); Lymphocytes Percent Auto 3.7 % (20.5-60.0); Mean Corpuscular HGB Conc 33.7 g/dL (29.9-35.2); Mean Corpuscular Hemoglobin 30.1 pg (26.7-34.0); Mean Corpuscular Volume 89.3 fL (81.0-99.0); Mean Platelet Volume 9.6 fL (9.5-13.5); Monocytes Absolute Auto 0.7 10^3/uL (0.3-0.8); Monocytes Percent Auto 3.9 % (1.7-12.0); Neutrophils Absolute Auto 15.7 10^3/uL (1.4-6.5); Neutrophils Percent Auto 90.5 % (43.0-75.0); Platelet Count 183 10^3/uL (150-450); Red Blood Count 4.19 10^6/uL (4.20-5.40); Red Cell Distribution Width 11.7 % (11.0-15.0); White Blood Count 17.3 10^3/uL (4.0-11.0)
[2023-04-19 04:45] LABS: Alanine Aminotransferase 114 U/L (14-59); Albumin Globulin Ratio 0.8; Albumin Level 2.4 g/dL (3.4-5.0); Alkaline Phosphatase 73 U/L (46-116); Anion Gap 11.5; Aspartate Amino Transferase 22 U/L (15-37); BUN Creatinine Ratio 34.4; Bilirubin Total 0.2 mg/dL (0.2-1.0); Calcium 8.4 mg/dL (8.5-10.1); Carbon Dioxide 30.1 mmol/L (21.0-32.0); Chloride 101 mmol/L (98-107); Estimated GFR (African America >60 (>=60); Estimated GFR (Non-African Ame >60 (>=60); Glucose 197 mg/dL (74-106); Potassium 4.6 mmol/L (3.5-5.1); Sodium 138 mmol/L (136-145); Total Protein 5.4 g/dL (6.4-8.2)
[2023-04-19] MEDS: HEPARIN SODIUM (PORCINE) 5,000 UNIT/ML VIAL 5000 UNIT SUBQ ×3 (06:43→22:23)
[2023-04-19] MEDS: NYSTATIN 500,000 UNIT/5 ML ORAL.SUSP 500000 UNIT PO ×4 (06:43→22:26)
[2023-04-19] MEDS: GUAIFENESIN 600 MG TAB.ER.12H PO ×2 (06:43→22:21)
--- NOTE | 2023-04-19 07:46 | P.PLPN_ITS ---
Progress Note: A&P Assessment and Plan (1) COVID-19: Assessment and Plan: 1. Acute viral pneumonia secondary to COVID-19.? Cleared from isolation 04/14/2023. Post inflammatory phase. 2. Acute exacerbation of COPD.? Continue bronchodilators, steroids. 3. Acute hypoxic respiratory failure.? Multifactorial. Still dependent on Vapotherm and BiPAP - have only successfully weaned FiO2 on Vapotherm from 100% to 95%. She does continue to respond well to BiPAP, likely d/t recruitment from EPAP. 4. Severe pulmonary hypertension. Dilated pulmonary artery (38mm) on CTA 04/18/2023 (and 04/11/2023, though not mentioned on radiology report) with echocardiogram (04/18/2023) confirming a high pulmonary pressure with RVSP 72mmHg. New from 04/26/2020 (RVSP 27mmHg). I suspect this is COVID-19 related with the impaired O2 diffusion causing hypoxic-induced pulmonary vasoconstriction contributing to pulmonary hypertension.. Prior PFT 01/24/2022 showed DLCO 90% which I would expect to be lower if severe pulmonary hypertension were present then. Right heart catherization would be indicated, but with her respiratory failure, transport to a tertiary facility would be tricky...attempting to avoid intubation if at all possible. Regarding treatment, she is already on amlodipine 5mg. Unknown if PDE-5 would help or harm. Additionally unclear if the RV is volume dependent or not, so cautious about further diuresis. Will consult [facility] Cardiology for any further recommendations regarding this. 5. Mucus plugging. Present throughout the lungs, but especially lingula with complete collapse. Considered bronchoscopy, but given her severe hypoxic state, she would end up intubated, and I fear if that happens, weaning her off would be difficult. Will continue aggressive pulmonary toilet. IPV is not availble currently. Will add Vest on top of PEP and saline nebs. 6. Oral candidiasis. Secondary to steroids (systemic and inhaled) + antibiotics.? Candidiasis improved, but still persists. Continue nystatin for now. 7. Coronary artery disease.? Non-obstructive according to [facility] in 08/13/2018. C ontinues to deny any chest pain. Follows with [facility] Cardiology. 8. Leukocytosis. Most consistent with steroid-induced. Patient remains afebrile. Continue to monitor vitals. 9. Obesity with BMI 37.4.? Inducing a restrictive pulmonary physiology. Weight loss advised. Subjective Subjective Interval history: Patient continues to have significant hypoxemia, transitioning between BiPAP and Vapotherm. FiO2 weaned down from 100% to 95% on Vapotherm and still maintaining SpO2 ~90% - a small victory overall. Due to ongoing hypoxia, ordered a repeat CTA yesterday (04/18/2023) to make sure a pulmonary embolism, pneumomediastinum, pneumothorax, pericardial effusion, or other COVID-19 related pulmonary conditions did not develop since the prior CTA 04/11/2023. The report noted new lingular collapse with scattered areas of collapse throughout other lobes suggestive of mucus plugging. The pulmonary artery was noted to be very dilated at 38mm. This dilated pulmonary artery was not mentioned by the radiologist on CTA 04/11/2013 - so I personally reviewed that imaging, and the pulmonary artery was dilated at that time which I measured @ ~39mm. The report actually states: The great vessels are unremarkable. No filling defect within the pulmonary arteries. There apparently was a CT chest done 11/26/2017 as stated by the radiologist, but I am unable to find where that is located. I ordered a F/U echocardiogram to assess if there were any pulmonary hypertension. Echo yesterday (04/18/2023) showed EF 55%, mild diastolic dysfunction (Grade 1), and very high pulmonary pressure with RVSP 72mmHg. There is moderate right ventricular hypertrophy and no valvular disease. There are no prior CT chest or echocardiograms on record here @ [facility]. She is established with [facility] Cardiology (Dr. Church), with the last office note I had available dated 04/26/2022. There is an echo report from 12/24/2019 which notes EF 60%, normal diastology, normal right sided pressures (RVSP 27mmHg) and normal right ventricular systolic function. She had a left-sided cardiac catheterization 08/13/2018 which showed non-obstructive CAD. Exam Constitutional Vital Signs - 24 hr 04/18/23 08:02 04/18/23 09:00 04/18/23 10:10 Temperature Pulse Rate 75 71 Pulse Rate [Monitor Left] Respiratory Rate Blood Pressure 147/77 H Blood Pressure [Left Arm] Pulse Oximetry Oxygen Delivery Method Oxygen Delivery Flow Rate Fraction of Inspired Oxygen 04/18/23 11:12 04/18/23 11:00 04/18/23 07:50 Temperature Pulse Rate 64 63 Pulse Rate [Monitor Left] Respiratory Rate 16 Blood Pressure Blood Pressure [Left Arm] Pulse Oximetry 93 L Oxygen Delivery Method Vapotherm Oxygen Delivery Flow Rate 40 Fraction of Inspired Oxygen 100 04/18/23 08:00 04/18/23 08:10 04/18/23 08:20 Temperature Pulse Rate 61 69 77 Pulse Rate [Monitor Left] Respiratory Rate 17 22 19 Blood Pressure Blood Pressure [Left Arm] Pulse Oximetry Oxygen Delivery Method Oxygen Delivery Flow Rate Fraction of Inspired Oxygen 04/18/23 08:30 04/18/23 08:40 04/18/23 08:50 Temperature Pulse Rate 77 83 76 Pulse Rate [Monitor Left] Respiratory Rate 18 11 L 17 Blood Pressure Blood Pressure [Left Arm] Pulse Oximetry Oxygen Delivery Method Oxygen Delivery Flow Rate Fraction of Inspired Oxygen 04/18/23 09:00 04/18/23 09:10 04/18/23 09:20 Temperature Pulse Rate 76 73 74 Pulse Rate [Monitor Left] Respiratory Rate 12 15 22 Blood Pressure Blood Pressure [Left Arm] Pulse Oximetry Oxygen Delivery Method Oxygen Delivery Flow Rate Fraction of Inspired Oxygen 04/18/23 09:30 04/18/23 09:40 04/18/23 09:50 Temperature Pulse Rate 75 78 67 Pulse Rate [Monitor Left] Respiratory Rate 26 H 29 H 10 L Blood Pressure Blood Pressure [Left Arm] Pulse Oximetry Oxygen Delivery Method Oxygen Delivery Flow Rate Fraction of Inspired Oxygen 04/18/23 10:00 04/18/23 10:10 04/18/23 10:20 Temperature Pulse Rate 74 71 Pulse Rate [Monitor Left] Respiratory Rate 26 H 13 27 H Blood Pressure Blood Pressure [Left Arm] Pulse Oximetry Oxygen Delivery Method Oxygen Delivery Flow Rate Fraction of Inspired Oxygen 04/18/23 10:30 04/18/23 10:40 04/18/23 10:50 Temperature Pulse Rate 70 66 66 Pulse Rate [Monitor Left] Respiratory Rate 18 20 21 Blood Pressure Blood Pressure [Left Arm] Pulse Oximetry Oxygen Delivery Method Oxygen Delivery Flow Rate Fraction of Inspired Oxygen 04/18/23 11:00 04/18/23 11:10 04/18/23 11:15 Temperature 98.0 F Pulse Rate 65 85 Pulse Rate [Monitor Left] Respiratory Rate 16 52 H Blood Pressure 140/76 H Blood Pressure [Left Arm] Pulse Oximetry 91 L Oxygen Delivery Method Oxygen Delivery Flow Rate Fraction of Inspired Oxygen 04/18/23 11:15 04/18/23 11:15 04/18/23 12:10 Temperature Pulse Rate 65 59 L Pulse Rate [Monitor Left] Respiratory Rate 21 Blood Pressure 140/76 H Blood Pressure [Left Arm] Pulse Oximetry 92 L Oxygen Delivery Method Oxygen Delivery Flow Rate Fraction of Inspired Oxygen 04/18/23 13:24 04/18/23 14:00 04/18/23 14:07 Temperature Pulse Rate 70 63 64 Pulse Rate [Monitor Left] Respiratory Rate Blood Pressure Blood Pressure [Left Arm] Pulse Oximetry Oxygen Delivery Method Oxygen Delivery Flow Rate Fraction of Inspired Oxygen 04/18/23 15:22 04/18/23 11:15 04/18/23 11:20 Temperature Pulse Rate 66 62 Pulse Rate [Monitor Left] Respiratory Rate 18 Blood Pressure 140/76 H Blood Pressure [Left Arm] Pulse Oximetry 92 L Oxygen Delivery Method Oxygen Delivery Flow Rate Fraction of Inspired Oxygen 04/18/23 11:30 04/18/23 11:40 04/18/23 11:50 Temperature Pulse Rate 68 63 63 Pulse Rate [Monitor Left] Respiratory Rate 19 17 16 Blood Pressure Blood Pressure [Left Arm] Pulse Oximetry Oxygen Delivery Method Oxygen Delivery Flow Rate Fraction of Inspired Oxygen 04/18/23 12:00 04/18/23 12:10 04/18/23 12:20 Temperature Pulse Rate 62 60 59 L Pulse Rate [Monitor Left] Respiratory Rate 17 15 16 Blood Pressure Blood Pressure [Left Arm] Pulse Oximetry Oxygen Delivery Method Oxygen Delivery Flow Rate Fraction of Inspired Oxygen 04/18/23 12:30 04/18/23 12:40 04/18/23 12:50 Temperature Pulse Rate 57 L 77 76 Pulse Rate [Monitor Left] Respiratory Rate 16 25 H 16 Blood Pressure Blood Pressure [Left Arm] Pulse Oximetry Oxygen Delivery Method Oxygen Delivery Flow Rate Fraction of Inspired Oxygen 04/18/23 13:00 04/18/23 13:10 04/18/23 13:20 Temperature Pulse Rate 76 71 69 Pulse Rate [Monitor Left] Respiratory Rate 20 20 15 Blood Pressure Blood Pressure [Left Arm] Pulse Oximetry Oxygen Delivery Method Oxygen Delivery Flow Rate Fraction of Inspired Oxygen 04/18/23 13:30 04/18/23 13:40 04/18/23 13:50 Temperature Pulse Rate 66 66 Pulse Rate [Monitor Left] Respiratory Rate 13 18 28 H Blood Pressure Blood Pressure [Left Arm] Pulse Oximetry Oxygen Delivery Method Oxygen Delivery Flow Rate Fraction of Inspired Oxygen 04/18/23 14:00 04/18/23 14:10 04/18/23 14:20 Temperature Pulse Rate 61 67 69 Pulse Rate [Monitor Left] Respiratory Rate 17 19 24 Blood Pressure Blood Pressure [Left Arm] Pulse Oximetry Oxygen Delivery Method Oxygen Delivery Flow Rate Fraction of Inspired Oxygen 04/18/23 14:30 04/18/23 14:40 04/18/23 14:50 Temperature Pulse Rate 98 H 61 61 Pulse Rate [Monitor Left] Respiratory Rate 21 18 18 Blood Pressure Blood Pressure [Left Arm] Pulse Oximetry Oxygen Delivery Method Oxygen Delivery Flow Rate Fraction of Inspired Oxygen 04/18/23 15:00 04/18/23 15:07 04/18/23 15:07 Temperature Pulse Rate 67 64 Pulse Rate [Monitor Left] Respiratory Rate 20 19 Blood Pressure 124/80 H Blood Pressure [Left Arm] Pulse Oximetry 92 L Oxygen Delivery Method Oxygen Delivery Flow Rate Fraction of Inspired Oxygen 04/18/23 15:10 04/18/23 15:20 04/18/23 15:26 Temperature 97.9 F Pulse Rate 65 67 70 Pulse Rate [Monitor Left] Respiratory Rate 17 15 22 Blood Pressure Blood Pressure [Left Arm] 124/80 H Pulse Oximetry Oxygen Delivery Method Vapotherm Oxygen Delivery Flow Rate 40 Fraction of Inspired Oxygen 95 04/18/23 16:06 04/18/23 16:09 04/18/23 18:06 Temperature Pulse Rate 72 95 H Pulse Rate [Monitor Left] Respiratory Rate Blood Pressure Blood Pressure [Left Arm] Pulse Oximetry 90 L Oxygen Delivery Method Vapotherm Oxygen Delivery Flow Rate 40 Fraction of Inspired Oxygen 95 04/18/23 18:09 04/18/23 19:52 04/18/23 19:52 Temperature Pulse Rate 80 68 Pulse Rate [Monitor Left] Respiratory Rate 20 Blood Pressure Blood Pressure [Left Arm] Pulse Oximetry 92 L 93 L Oxygen Delivery Method Vapotherm Vapotherm Oxygen Delivery Flow Rate 40 40 Fraction of Inspired Oxygen 95 95 04/18/23 20:06 04/18/23 15:30 04/18/23 15:40 Temperature Pulse Rate 80 69 66 Pulse Rate [Monitor Left] Respiratory Rate 20 17 18 Blood Pressure Blood Pressure [Left Arm] Pulse Oximetry 90 L Oxygen Delivery Method Vapotherm Oxygen Delivery Flow Rate 40 Fraction of Inspired Oxygen 95 04/18/23 15:50 04/18/23 16:00 04/18/23 16:10 Temperature Pulse Rate 70 66 74 Pulse Rate [Monitor Left] Respiratory Rate 19 21 20 Blood Pressure Blood Pressure [Left Arm] Pulse Oximetry Oxygen Delivery Method Oxygen Delivery Flow Rate Fraction of Inspired Oxygen 04/18/23 16:20 04/18/23 16:30 04/18/23 16:40 Temperature Pulse Rate 78 80 73 Pulse Rate [Monitor Left] Respiratory Rate 19 23 17 Blood Pressure Blood Pressure [Left Arm] Pulse Oximetry Oxygen Delivery Method Oxygen Delivery Flow Rate Fraction of Inspired Oxygen 04/18/23 16:50 04/18/23 17:00 04/18/23 17:10 Temperature Pulse Rate 75 87 71 Pulse Rate [Monitor Left] Respiratory Rate 19 18 19 Blood Pressure Blood Pressure [Left Arm] Pulse Oximetry Oxygen Delivery Method Oxygen Delivery Flow Rate Fraction of Inspired Oxygen 04/18/23 17:20 04/18/23 17:30 04/18/23 17:40 Temperature Pulse Rate 77 76 74 Pulse Rate [Monitor Left] Respiratory Rate 30 H 14 19 Blood Pressure Blood Pressure [Left Arm] Pulse Oximetry Oxygen Delivery Method Oxygen Delivery Flow Rate Fraction of Inspired Oxygen 04/18/23 17:50 04/18/23 18:00 04/18/23 18:10 Temperature Pulse Rate 82 98 H Pulse Rate [Monitor Left] Respiratory Rate 16 19 21 Blood Pressure Blood Pressure [Left Arm] Pulse Oximetry Oxygen Delivery Method Oxygen Delivery Flow Rate Fraction of Inspired Oxygen 04/18/23 18:20 04/18/23 18:30 04/18/23 18:40 Temperature Pulse Rate 75 72 71 Pulse Rate [Monitor Left] Respiratory Rate 23 18 20 Blood Pressure Blood Pressure [Left Arm] Pulse Oximetry Oxygen Delivery Method Oxygen Delivery Flow Rate Fraction of Inspired Oxygen 04/18/23 18:50 04/18/23 19:00 04/18/23 19:10 Temperature Pulse Rate 70 87 77 Pulse Rate [Monitor Left] Respiratory Rate 15 22 23 Blood Pressure Blood Pressure [Left Arm] Pulse Oximetry Oxygen Delivery Method Oxygen Delivery Flow Rate Fraction of Inspired Oxygen 04/18/23 19:20 04/18/23 19:30 04/18/23 19:37 Temperature 97.5 F L Pulse Rate 69 69 74 Pulse Rate [Monitor Left] Respiratory Rate 13 21 20 Blood Pressure 152/83 H Blood Pressure [Left Arm] Pulse Oximetry 92 L Oxygen Delivery Method Oxygen Delivery Flow Rate 40 Fraction of Inspired Oxygen 95 04/18/23 19:37 04/18/23 19:37 04/18/23 19:40 Temperature Pulse Rate 72 72 Pulse Rate [Monitor Left] Respiratory Rate 28 H 23 Blood Pressure 152/83 H Blood Pressure [Left Arm] Pulse Oximetry 90 L Oxygen Delivery Method Oxygen Delivery Flow Rate Fraction of Inspired Oxygen 04/18/23 19:50 04/18/23 20:00 04/18/23 20:10 Temperature Pulse Rate 103 H 129 H 78 Pulse Rate [Monitor Left] Respiratory Rate 22 21 19 Blood Pressure Blood Pressure [Left Arm] Pulse Oximetry Oxygen Delivery Method Oxygen Delivery Flow Rate Fraction of Inspired Oxygen 04/18/23 20:20 04/18/23 20:30 04/18/23 20:40 Temperature Pulse Rate 80 79 76 Pulse Rate [Monitor Left] Respiratory Rate 24 17 17 Blood Pressure Blood Pressure [Left Arm] Pulse Oximetry Oxygen Delivery Method Oxygen Delivery Flow Rate Fraction of Inspired Oxygen 04/18/23 20:50 04/18/23 21:00 04/18/23 20:00 Temperature Pulse Rate 71 69 Pulse Rate [Monitor Left] 66 Respiratory Rate 17 18 18 Blood Pressure Blood Pressure [Left Arm] Pulse Oximetry Oxygen Delivery Method Oxygen Delivery Flow Rate Fraction of Inspired Oxygen 04/18/23 20:00 04/18/23 22:00 04/18/23 22:00 Temperature Pulse Rate 66 66 66 Pulse Rate [Monitor Left] Respiratory Rate 18 Blood Pressure Blood Pressure [Left Arm] Pulse Oximetry 91 L Oxygen Delivery Method BIPAP Oxygen Delivery Flow Rate Fraction of Inspired Oxygen 55 04/18/23 23:18 04/18/23 23:13 04/18/23 23:25 Temperature Pulse Rate 65 65 66 Pulse Rate [Monitor Left] Respiratory Rate 18 22 Blood Pressure Blood Pressure [Left Arm] Pulse Oximetry 92 L 92 L 91 L Oxygen Delivery Method BIPAP BIPAP Oxygen Delivery Flow Rate Fraction of Inspired Oxygen 55 55 55 04/19/23 00:13 04/19/23 00:50 04/18/23 21:10 Temperature Pulse Rate 65 68 Pulse Rate [Monitor Left] 66 Respiratory Rate 18 Blood Pressure Blood Pressure [Left Arm] Pulse Oximetry Oxygen Delivery Method Oxygen Delivery Flow Rate Fraction of Inspired Oxygen 04/18/23 21:20 04/18/23 21:30 04/18/23 21:40 Temperature Pulse Rate 70 68 65 Pulse Rate [Monitor Left] Respiratory Rate 20 17 20 Blood Pressure Blood Pressure [Left Arm] Pulse Oximetry Oxygen Delivery Method Oxygen Delivery Flow Rate Fraction of Inspired Oxygen 04/18/23 21:50 04/18/23 22:00 04/18/23 22:10 Temperature Pulse Rate 75 71 68 Pulse Rate [Monitor Left] Respiratory Rate 15 20 20 Blood Pressure Blood Pressure [Left Arm] Pulse Oximetry Oxygen Delivery Method Oxygen Delivery Flow Rate Fraction of Inspired Oxygen 04/18/23 22:20 04/18/23 22:30 04/18/23 22:40 Temperature Pulse Rate 69 68 67 Pulse Rate [Monitor Left] Respiratory Rate 21 24 20 Blood Pressure Blood Pressure [Left Arm] Pulse Oximetry Oxygen Delivery Method Oxygen Delivery Flow Rate Fraction of Inspired Oxygen 04/18/23 22:50 04/18/23 23:00 04/18/23 23:10 Temperature Pulse Rate 67 65 67 Pulse Rate [Monitor Left] Respiratory Rate 21 18 17 Blood Pressure Blood Pressure [Left Arm] Pulse Oximetry Oxygen Delivery Method Oxygen Delivery Flow Rate Fraction of Inspired Oxygen 04/18/23 23:20 04/18/23 23:30 04/18/23 23:40 Temperature Pulse Rate 65 65 67 Pulse Rate [Monitor Left] Respiratory Rate 18 15 20 Blood Pressure Blood Pressure [Left Arm] Pulse Oximetry Oxygen Delivery Method Oxygen Delivery Flow Rate Fraction of Inspired Oxygen 04/18/23 23:50 04/19/23 00:00 04/19/23 00:02 Temperature 98.0 F Pulse Rate 69 69 68 Pulse Rate [Monitor Left] Respiratory Rate 20 27 H 16 Blood Pressure 140/73 H Blood Pressure [Left Arm] Pulse Oximetry 91 L Oxygen Delivery Method Oxygen Delivery Flow Rate Fraction of Inspired Oxygen 55 04/19/23 00:02 04/19/23 00:02 04/19/23 00:10 Temperature Pulse Rate 71 67 Pulse Rate [Monitor Left] Respiratory Rate 22 28 H Blood Pressure 140/73 H Blood Pressure [Left Arm] Pulse Oximetry 92 L Oxygen Delivery Method Oxygen Delivery Flow Rate Fraction of Inspired Oxygen 04/19/23 00:20 04/19/23 00:30 04/19/23 00:40 Temperature Pulse Rate 69 67 69 Pulse Rate [Monitor Left] Respiratory Rate 23 17 17 Blood Pressure Blood Pressure [Left Arm] Pulse Oximetry Oxygen Delivery Method Oxygen Delivery Flow Rate Fraction of Inspired Oxygen 04/19/23 01:29 04/19/23 02:04 04/19/23 04:01 Temperature Pulse Rate 67 66 60 Pulse Rate [Monitor Left] Respiratory Rate Blood Pressure Blood Pressure [Left Arm] Pulse Oximetry 93 L Oxygen Delivery Method Oxygen Delivery Flow Rate Fraction of Inspired Oxygen 55 04/19/23 03:54 04/19/23 04:06 04/19/23 04:00 Temperature Pulse Rate 61 61 70 Pulse Rate [Monitor Left] Respiratory Rate 20 17 Blood Pressure Blood Pressure [Left Arm] Pulse Oximetry 93 L 92 L Oxygen Delivery Method BIPAP BIPAP Oxygen Delivery Flow Rate Fraction of Inspired Oxygen 55 55 04/19/23 04:00 04/19/23 02:00 04/19/23 03:00 Temperature Pulse Rate 61 59 L Pulse Rate [Monitor Left] 68 Respiratory Rate 18 16 17 Blood Pressure Blood Pressure [Left Arm] Pulse Oximetry Oxygen Delivery Method Oxygen Delivery Flow Rate Fraction of Inspired Oxygen 04/19/23 04:00 04/19/23 04:11 04/19/23 04:11 Temperature Pulse Rate 61 66 Pulse Rate [Monitor Left] Respiratory Rate 19 18 Blood Pressure 124/67 H Blood Pressure [Left Arm] Pulse Oximetry 92 L Oxygen Delivery Method Oxygen Delivery Flow Rate Fraction of Inspired Oxygen 04/19/23 04:11 04/19/23 04:20 04/19/23 04:30 Temperature Pulse Rate 62 63 Pulse Rate [Monitor Left] Respiratory Rate 15 18 Blood Pressure 124/67 H Blood Pressure [Left Arm] Pulse Oximetry 93 L Oxygen Delivery Method Oxygen Delivery Flow Rate Fraction of Inspired Oxygen 04/19/23 04:40 04/19/23 06:00 04/19/23 07:16 Temperature Pulse Rate 62 64 63 Pulse Rate [Monitor Left] Respiratory Rate 17 Blood Pressure Blood Pressure [Left Arm] Pulse Oximetry Oxygen Delivery Method Oxygen Delivery Flow Rate Fraction of Inspired Oxygen 04/19/23 04:50 04/19/23 05:00 04/19/23 05:10 Temperature Pulse Rate 76 64 59 L Pulse Rate [Monitor Left] Respiratory Rate 41 H 18 14 Blood Pressure Blood Pressure [Left Arm] Pulse Oximetry Oxygen Delivery Method Oxygen Delivery Flow Rate Fraction of Inspired Oxygen 04/19/23 05:20 04/19/23 05:30 04/19/23 05:40 Temperature Pulse Rate 60 62 59 L Pulse Rate [Monitor Left] Respiratory Rate 16 16 16 Blood Pressure Blood Pressure [Left Arm] Pulse Oximetry Oxygen Delivery Method Oxygen Delivery Flow Rate Fraction of Inspired Oxygen 04/19/23 05:50 04/19/23 06:00 04/19/23 06:10 Temperature Pulse Rate 60 66 58 L Pulse Rate [Monitor Left] Respiratory Rate 17 19 16 Blood Pressure Blood Pressure [Left Arm] Pulse Oximetry Oxygen Delivery Method Oxygen Delivery Flow Rate Fraction of Inspired Oxygen 04/19/23 06:20 04/19/23 06:30 04/19/23 06:40 Temperature Pulse Rate 59 L 64 59 L Pulse Rate [Monitor Left] Respiratory Rate 19 19 19 Blood Pressure Blood Pressure [Left Arm] Pulse Oximetry Oxygen Delivery Method Oxygen Delivery Flow Rate Fraction of Inspired Oxygen 04/19/23 06:50 04/19/23 07:00 04/19/23 07:04 Temperature 97.7 F Pulse Rate 77 75 62 Pulse Rate [Monitor Left] Respiratory Rate 21 22 22 Blood Pressure 139/73 H Blood Pressure [Left Arm] Pulse Oximetry 91 L Oxygen Delivery Method Oxygen Delivery Flow Rate Fraction of Inspired Oxygen 04/19/23 07:04 04/19/23 07:10 04/19/23 07:20 Temperature Pulse Rate 64 62 61 Pulse Rate [Monitor Left] Respiratory Rate 17 19 17 Blood Pressure Blood Pressure [Left Arm] Pulse Oximetry Oxygen Delivery Method Oxygen Delivery Flow Rate Fraction of Inspired Oxygen 04/19/23 07:28 Temperature Pulse Rate 60 Pulse Rate [Monitor Left] Respiratory Rate 22 Blood Pressure Blood Pressure [Left Arm] Pulse Oximetry 92 L Oxygen Delivery Method Vapotherm Oxygen Delivery Flow Rate 40 Fraction of Inspired Oxygen 95 Documenting provider has reviewed patient's vital signs: yes Common normals: no apparent distress General appearance: cooperative HENMT Other: Wearing Vapotherm nasal cannula. Oral candidiasis still present, mainly right hard palate - markedly improved from initial discovery. Chest Common normals: inspection of chest normal Respiratory Other: Diminished breath sounds throughout. Scattered rhonchi. No wheezes Cardio Rate: regular rate Rhythm: regular rhythm GI Common normals: Normal to inspection, nondistended, normoactive bowel sounds present Bladder/kidney exam: catheter in place Extremity Common normals: normal capillary refill and no clubbing, cyanosis or edema Neuro Common normals: oriented x3 Sensorium/orientation: awake and alert Psych Attitude: calm (Patient continues to remain pleasant despite her severe medical status.)
[2023-04-19] MEDS: INSULIN ASPART 300 UNIT/3 ML PEN SUBQ ×4 (08:12→22:24)
[2023-04-19] MEDS: INSULIN DETEMIR 300 UNIT/3 ML INSULN.PEN 20 UNIT SUBQ ×2 (08:15→22:21)
[2023-04-19] MEDS: SOLIFENACIN SUCCINATE 5 MG TABLET PO (08:15)
[2023-04-19] MEDS: AMLODIPINE BESYLATE 5 MG TABLET PO (08:16)
[2023-04-19] MEDS: OMEPRAZOLE 40 MG CAPSULE.DR PO (08:16)
[2023-04-19] MEDS: CETIRIZINE HCL 10 MG TABLET 20 MG PO (08:16)
[2023-04-19] MEDS: GABAPENTIN 300 MG CAPSULE PO ×2 (08:16→22:21)
[2023-04-19] MEDS: MAGNESIUM OXIDE 400 MG TABLET PO (08:16)
[2023-04-19] MEDS: MONTELUKAST SODIUM 10 MG TABLET PO (08:16)
[2023-04-19] MEDS: CHOLECALCIFEROL (VITAMIN D3) 25 MCG/1,000 UNITS TABLET PO (08:16)
--- NOTE | 2023-04-19 10:57 | RESP.RT ---
IPV circuits unavailable; SpO2 95%, FiO2 decreased from 95% to 90%
--- NOTE | 2023-04-19 11:29 | PM.IMPN1 ---
Progress Note: A&P Assessment and Plan (1) COVID-19: Assessment and Plan: Feeling better today. Slighlty improved oxygenation. (2) Hypertension: Assessment and Plan: C/w amlodipine. At goal HCTZ on hold Qualifiers: Hypertension type: primary hypertension Qualified Code(s): I10 - Essential (primary) hypertension (3) Chronic low back pain: Assessment and Plan: On gabapentin. C/w same Qualifiers: Back pain laterality: midline Sciatica presence: without sciatica Qualified Code(s): M54.50 - Low back pain, unspecified; G89.29 - Other chronic pain (4) Asthma with acute exacerbation: Assessment and Plan: Severe persistent asthma at baseline. On trelegy as outpatient. Currently on mucomyst, mucinex, solumedrol and duonebs. No wheezing on exam. Qualifiers: Asthma severity: severe Asthma persistence: persistent Qualified Code(s): J45.51 - Severe persistent asthma with (acute) exacerbation (5) Respiratory failure with hypoxia: Assessment and Plan: Encourage prone positioning. C/w current treatment. Monitor closely. CTA shows mucus plugging - too sick for Bronchoscopy. Pulm HTN - Cardiology consulted by Pulm s/p Glory for empirical antibacterial coverage against bacterial PNA. Qualifiers: Chronicity: acute Qualified Code(s): J96.01 - Acute respiratory failure with hypoxia (6) Depression: Assessment and Plan: C/w Trazodone and Paxil Qualifiers: Depression Type: major depressive disorder Major depression recurrence: recurrent Active/Remission status: in full remission Qualified Code(s): F33.42 - Major depressive disorder, recurrent, in full remission (7) Hypokalemia: Assessment and Plan: Improved. C/w oral potassium (8) JEANNE (acute kidney injury): Assessment and Plan: likely from diuresis. resolved with IV hydration (9) Dehydration determined by examination: Assessment and Plan: Improved with IV hydration. Poor Po intake. Internal Medicine - PN: Subj Subjective Interval history: Seen and examined. Doing better. FiO2 requirment is down to 90% now. No events overnight. Exam Constitutional Vital Signs - 24 hr 04/18/23 12:10 04/18/23 13:24 04/18/23 14:00 Temperature Pulse Rate 59 L 70 63 Pulse Rate [Monitor Left] Respiratory Rate Blood Pressure Blood Pressure [Left Arm] Pulse Oximetry Oxygen Delivery Method Oxygen Delivery Flow Rate Fraction of Inspired Oxygen 04/18/23 14:07 04/18/23 15:22 04/18/23 11:30 Temperature Pulse Rate 64 66 68 Pulse Rate [Monitor Left] Respiratory Rate 19 Blood Pressure Blood Pressure [Left Arm] Pulse Oximetry Oxygen Delivery Method Oxygen Delivery Flow Rate Fraction of Inspired Oxygen 04/18/23 11:40 04/18/23 11:50 04/18/23 12:00 Temperature Pulse Rate 63 63 62 Pulse Rate [Monitor Left] Respiratory Rate 17 16 17 Blood Pressure Blood Pressure [Left Arm] Pulse Oximetry Oxygen Delivery Method Oxygen Delivery Flow Rate Fraction of Inspired Oxygen 04/18/23 12:10 04/18/23 12:20 04/18/23 12:30 Temperature Pulse Rate 60 59 L 57 L Pulse Rate [Monitor Left] Respiratory Rate 15 16 16 Blood Pressure Blood Pressure [Left Arm] Pulse Oximetry Oxygen Delivery Method Oxygen Delivery Flow Rate Fraction of Inspired Oxygen 04/18/23 12:40 04/18/23 12:50 04/18/23 13:00 Temperature Pulse Rate 77 76 76 Pulse Rate [Monitor Left] Respiratory Rate 25 H 16 20 Blood Pressure Blood Pressure [Left Arm] Pulse Oximetry Oxygen Delivery Method Oxygen Delivery Flow Rate Fraction of Inspired Oxygen 04/18/23 13:10 04/18/23 13:20 04/18/23 13:30 Temperature Pulse Rate 71 69 66 Pulse Rate [Monitor Left] Respiratory Rate 20 15 13 Blood Pressure Blood Pressure [Left Arm] Pulse Oximetry Oxygen Delivery Method Oxygen Delivery Flow Rate Fraction of Inspired Oxygen 04/18/23 13:40 04/18/23 13:50 04/18/23 14:00 Temperature Pulse Rate 66 61 Pulse Rate [Monitor Left] Respiratory Rate 18 28 H 17 Blood Pressure Blood Pressure [Left Arm] Pulse Oximetry Oxygen Delivery Method Oxygen Delivery Flow Rate Fraction of Inspired Oxygen 04/18/23 14:10 04/18/23 14:20 04/18/23 14:30 Temperature Pulse Rate 67 69 98 H Pulse Rate [Monitor Left] Respiratory Rate 19 24 21 Blood Pressure Blood Pressure [Left Arm] Pulse Oximetry Oxygen Delivery Method Oxygen Delivery Flow Rate Fraction of Inspired Oxygen 04/18/23 14:40 04/18/23 14:50 04/18/23 15:00 Temperature Pulse Rate 61 61 67 Pulse Rate [Monitor Left] Respiratory Rate 18 18 20 Blood Pressure Blood Pressure [Left Arm] Pulse Oximetry Oxygen Delivery Method Oxygen Delivery Flow Rate Fraction of Inspired Oxygen 04/18/23 15:07 04/18/23 15:07 04/18/23 15:10 Temperature Pulse Rate 64 65 Pulse Rate [Monitor Left] Respiratory Rate 19 17 Blood Pressure 124/80 H Blood Pressure [Left Arm] Pulse Oximetry 92 L Oxygen Delivery Method Oxygen Delivery Flow Rate Fraction of Inspired Oxygen 04/18/23 15:20 04/18/23 15:26 04/18/23 16:06 Temperature 97.9 F Pulse Rate 67 70 72 Pulse Rate [Monitor Left] Respiratory Rate 15 22 Blood Pressure Blood Pressure [Left Arm] 124/80 H Pulse Oximetry Oxygen Delivery Method Vapotherm Oxygen Delivery Flow Rate 40 Fraction of Inspired Oxygen 95 04/18/23 16:09 04/18/23 18:06 04/18/23 18:09 Temperature Pulse Rate 95 H 80 Pulse Rate [Monitor Left] Respiratory Rate Blood Pressure Blood Pressure [Left Arm] Pulse Oximetry 90 L Oxygen Delivery Method Vapotherm Oxygen Delivery Flow Rate 40 Fraction of Inspired Oxygen 95 04/18/23 19:52 04/18/23 19:52 04/18/23 20:06 Temperature Pulse Rate 68 80 Pulse Rate [Monitor Left] Respiratory Rate 20 20 Blood Pressure Blood Pressure [Left Arm] Pulse Oximetry 92 L 93 L 90 L Oxygen Delivery Method Vapotherm Vapotherm Vapotherm Oxygen Delivery Flow Rate 40 40 40 Fraction of Inspired Oxygen 95 95 95 04/18/23 15:30 04/18/23 15:40 04/18/23 15:50 Temperature Pulse Rate 69 66 70 Pulse Rate [Monitor Left] Respiratory Rate 17 18 19 Blood Pressure Blood Pressure [Left Arm] Pulse Oximetry Oxygen Delivery Method Oxygen Delivery Flow Rate Fraction of Inspired Oxygen 04/18/23 16:00 04/18/23 16:10 04/18/23 16:20 Temperature Pulse Rate 66 74 78 Pulse Rate [Monitor Left] Respiratory Rate 21 20 19 Blood Pressure Blood Pressure [Left Arm] Pulse Oximetry Oxygen Delivery Method Oxygen Delivery Flow Rate Fraction of Inspired Oxygen 04/18/23 16:30 04/18/23 16:40 04/18/23 16:50 Temperature Pulse Rate 80 73 75 Pulse Rate [Monitor Left] Respiratory Rate 23 17 19 Blood Pressure Blood Pressure [Left Arm] Pulse Oximetry Oxygen Delivery Method Oxygen Delivery Flow Rate Fraction of Inspired Oxygen 04/18/23 17:00 04/18/23 17:10 04/18/23 17:20 Temperature Pulse Rate 87 71 77 Pulse Rate [Monitor Left] Respiratory Rate 18 19 30 H Blood Pressure Blood Pressure [Left Arm] Pulse Oximetry Oxygen Delivery Method Oxygen Delivery Flow Rate Fraction of Inspired Oxygen 04/18/23 17:30 04/18/23 17:40 04/18/23 17:50 Temperature Pulse Rate 76 74 82 Pulse Rate [Monitor Left] Respiratory Rate 14 19 16 Blood Pressure Blood Pressure [Left Arm] Pulse Oximetry Oxygen Delivery Method Oxygen Delivery Flow Rate Fraction of Inspired Oxygen 04/18/23 18:00 04/18/23 18:10 04/18/23 18:20 Temperature Pulse Rate 98 H 75 Pulse Rate [Monitor Left] Respiratory Rate 19 21 23 Blood Pressure Blood Pressure [Left Arm] Pulse Oximetry Oxygen Delivery Method Oxygen Delivery Flow Rate Fraction of Inspired Oxygen 04/18/23 18:30 04/18/23 18:40 04/18/23 18:50 Temperature Pulse Rate 72 71 70 Pulse Rate [Monitor Left] Respiratory Rate 18 20 15 Blood Pressure Blood Pressure [Left Arm] Pulse Oximetry Oxygen Delivery Method Oxygen Delivery Flow Rate Fraction of Inspired Oxygen 04/18/23 19:00 04/18/23 19:10 04/18/23 19:20 Temperature Pulse Rate 87 77 69 Pulse Rate [Monitor Left] Respiratory Rate 22 23 13 Blood Pressure Blood Pressure [Left Arm] Pulse Oximetry Oxygen Delivery Method Oxygen Delivery Flow Rate Fraction of Inspired Oxygen 04/18/23 19:30 04/18/23 19:37 04/18/23 19:37 Temperature 97.5 F L Pulse Rate 69 74 72 Pulse Rate [Monitor Left] Respiratory Rate 21 20 28 H Blood Pressure 152/83 H Blood Pressure [Left Arm] Pulse Oximetry 92 L Oxygen Delivery Method Oxygen Delivery Flow Rate 40 Fraction of Inspired Oxygen 95 04/18/23 19:37 04/18/23 19:40 04/18/23 19:50 Temperature Pulse Rate 72 103 H Pulse Rate [Monitor Left] Respiratory Rate 23 22 Blood Pressure 152/83 H Blood Pressure [Left Arm] Pulse Oximetry 90 L Oxygen Delivery Method Oxygen Delivery Flow Rate Fraction of Inspired Oxygen 04/18/23 20:00 04/18/23 20:10 04/18/23 20:20 Temperature Pulse Rate 129 H 78 80 Pulse Rate [Monitor Left] Respiratory Rate 21 19 24 Blood Pressure Blood Pressure [Left Arm] Pulse Oximetry Oxygen Delivery Method Oxygen Delivery Flow Rate Fraction of Inspired Oxygen 04/18/23 20:30 04/18/23 20:40 04/18/23 20:50 Temperature Pulse Rate 79 76 71 Pulse Rate [Monitor Left] Respiratory Rate 17 17 17 Blood Pressure Blood Pressure [Left Arm] Pulse Oximetry Oxygen Delivery Method Oxygen Delivery Flow Rate Fraction of Inspired Oxygen 04/18/23 21:00 04/18/23 20:00 04/18/23 20:00 Temperature Pulse Rate 69 66 Pulse Rate [Monitor Left] 66 Respiratory Rate 18 18 Blood Pressure Blood Pressure [Left Arm] Pulse Oximetry Oxygen Delivery Method Oxygen Delivery Flow Rate Fraction of Inspired Oxygen 04/18/23 22:00 04/18/23 22:00 04/18/23 23:18 Temperature Pulse Rate 66 66 65 Pulse Rate [Monitor Left] Respiratory Rate 18 Blood Pressure Blood Pressure [Left Arm] Pulse Oximetry 91 L 92 L Oxygen Delivery Method BIPAP Oxygen Delivery Flow Rate Fraction of Inspired Oxygen 55 55 04/18/23 23:13 04/18/23 23:25 04/19/23 00:13 Temperature Pulse Rate 65 66 65 Pulse Rate [Monitor Left] Respiratory Rate 18 22 Blood Pressure Blood Pressure [Left Arm] Pulse Oximetry 92 L 91 L Oxygen Delivery Method BIPAP BIPAP Oxygen Delivery Flow Rate Fraction of Inspired Oxygen 55 55 04/19/23 00:50 04/18/23 21:10 04/18/23 21:20 Temperature Pulse Rate 68 70 Pulse Rate [Monitor Left] 66 Respiratory Rate 18 20 Blood Pressure Blood Pressure [Left Arm] Pulse Oximetry Oxygen Delivery Method Oxygen Delivery Flow Rate Fraction of Inspired Oxygen 04/18/23 21:30 04/18/23 21:40 04/18/23 21:50 Temperature Pulse Rate 68 65 75 Pulse Rate [Monitor Left] Respiratory Rate 17 20 15 Blood Pressure Blood Pressure [Left Arm] Pulse Oximetry Oxygen Delivery Method Oxygen Delivery Flow Rate Fraction of Inspired Oxygen 04/18/23 22:00 04/18/23 22:10 04/18/23 22:20 Temperature Pulse Rate 71 68 69 Pulse Rate [Monitor Left] Respiratory Rate 20 20 21 Blood Pressure Blood Pressure [Left Arm] Pulse Oximetry Oxygen Delivery Method Oxygen Delivery Flow Rate Fraction of Inspired Oxygen 04/18/23 22:30 04/18/23 22:40 04/18/23 22:50 Temperature Pulse Rate 68 67 67 Pulse Rate [Monitor Left] Respiratory Rate 24 20 21 Blood Pressure Blood Pressure [Left Arm] Pulse Oximetry Oxygen Delivery Method Oxygen Delivery Flow Rate Fraction of Inspired Oxygen 04/18/23 23:00 04/18/23 23:10 04/18/23 23:20 Temperature Pulse Rate 65 67 65 Pulse Rate [Monitor Left] Respiratory Rate 18 17 18 Blood Pressure Blood Pressure [Left Arm] Pulse Oximetry Oxygen Delivery Method Oxygen Delivery Flow Rate Fraction of Inspired Oxygen 04/18/23 23:30 04/18/23 23:40 04/18/23 23:50 Temperature Pulse Rate 65 67 69 Pulse Rate [Monitor Left] Respiratory Rate 15 20 20 Blood Pressure Blood Pressure [Left Arm] Pulse Oximetry Oxygen Delivery Method Oxygen Delivery Flow Rate Fraction of Inspired Oxygen 04/19/23 00:00 04/19/23 00:02 04/19/23 00:02 Temperature 98.0 F Pulse Rate 69 68 71 Pulse Rate [Monitor Left] Respiratory Rate 27 H 16 22 Blood Pressure 140/73 H Blood Pressure [Left Arm] Pulse Oximetry 91 L Oxygen Delivery Method Oxygen Delivery Flow Rate Fraction of Inspired Oxygen 55 04/19/23 00:02 04/19/23 00:10 04/19/23 00:20 Temperature Pulse Rate 67 69 Pulse Rate [Monitor Left] Respiratory Rate 28 H 23 Blood Pressure 140/73 H Blood Pressure [Left Arm] Pulse Oximetry 92 L Oxygen Delivery Method Oxygen Delivery Flow Rate Fraction of Inspired Oxygen 04/19/23 00:30 04/19/23 00:40 04/19/23 01:29 Temperature Pulse Rate 67 69 67 Pulse Rate [Monitor Left] Respiratory Rate 17 17 Blood Pressure Blood Pressure [Left Arm] Pulse Oximetry Oxygen Delivery Method Oxygen Delivery Flow Rate Fraction of Inspired Oxygen 04/19/23 02:04 04/19/23 04:01 04/19/23 03:54 Temperature Pulse Rate 66 60 61 Pulse Rate [Monitor Left] Respiratory Rate 20 Blood Pressure Blood Pressure [Left Arm] Pulse Oximetry 93 L 93 L Oxygen Delivery Method BIPAP Oxygen Delivery Flow Rate Fraction of Inspired Oxygen 55 55 04/19/23 04:06 04/19/23 04:00 04/19/23 04:00 Temperature Pulse Rate 61 70 Pulse Rate [Monitor Left] 68 Respiratory Rate 17 18 Blood Pressure Blood Pressure [Left Arm] Pulse Oximetry 92 L Oxygen Delivery Method BIPAP Oxygen Delivery Flow Rate Fraction of Inspired Oxygen 55 04/19/23 02:00 04/19/23 03:00 04/19/23 04:00 Temperature Pulse Rate 61 59 L 61 Pulse Rate [Monitor Left] Respiratory Rate 16 17 19 Blood Pressure Blood Pressure [Left Arm] Pulse Oximetry Oxygen Delivery Method Oxygen Delivery Flow Rate Fraction of Inspired Oxygen 04/19/23 04:11 04/19/23 04:11 04/19/23 04:11 Temperature Pulse Rate 66 Pulse Rate [Monitor Left] Respiratory Rate 18 Blood Pressure 124/67 H 124/67 H Blood Pressure [Left Arm] Pulse Oximetry 92 L 93 L Oxygen Delivery Method Oxygen Delivery Flow Rate Fraction of Inspired Oxygen 04/19/23 04:20 04/19/23 04:30 04/19/23 04:40 Temperature Pulse Rate 62 63 62 Pulse Rate [Monitor Left] Respiratory Rate 15 18 17 Blood Pressure Blood Pressure [Left Arm] Pulse Oximetry Oxygen Delivery Method Oxygen Delivery Flow Rate Fraction of Inspired Oxygen 04/19/23 06:00 04/19/23 07:16 04/19/23 04:50 Temperature Pulse Rate 64 63 76 Pulse Rate [Monitor Left] Respiratory Rate 41 H Blood Pressure Blood Pressure [Left Arm] Pulse Oximetry Oxygen Delivery Method Oxygen Delivery Flow Rate Fraction of Inspired Oxygen 04/19/23 05:00 04/19/23 05:10 04/19/23 05:20 Temperature Pulse Rate 64 59 L 60 Pulse Rate [Monitor Left] Respiratory Rate 18 14 16 Blood Pressure Blood Pressure [Left Arm] Pulse Oximetry Oxygen Delivery Method Oxygen Delivery Flow Rate Fraction of Inspired Oxygen 04/19/23 05:30 04/19/23 05:40 04/19/23 05:50 Temperature Pulse Rate 62 59 L 60 Pulse Rate [Monitor Left] Respiratory Rate 16 16 17 Blood Pressure Blood Pressure [Left Arm] Pulse Oximetry Oxygen Delivery Method Oxygen Delivery Flow Rate Fraction of Inspired Oxygen 04/19/23 06:00 04/19/23 06:10 04/19/23 06:20 Temperature Pulse Rate 66 58 L 59 L Pulse Rate [Monitor Left] Respiratory Rate 19 16 19 Blood Pressure Blood Pressure [Left Arm] Pulse Oximetry Oxygen Delivery Method Oxygen Delivery Flow Rate Fraction of Inspired Oxygen 04/19/23 06:30 04/19/23 06:40 04/19/23 06:50 Temperature Pulse Rate 64 59 L 77 Pulse Rate [Monitor Left] Respiratory Rate 19 19 21 Blood Pressure Blood Pressure [Left Arm] Pulse Oximetry Oxygen Delivery Method Oxygen Delivery Flow Rate Fraction of Inspired Oxygen 04/19/23 07:00 04/19/23 07:04 04/19/23 07:04 Temperature 97.7 F Pulse Rate 75 62 64 Pulse Rate [Monitor Left] Respiratory Rate 22 22 17 Blood Pressure 139/73 H Blood Pressure [Left Arm] Pulse Oximetry 91 L Oxygen Delivery Method Oxygen Delivery Flow Rate Fraction of Inspired Oxygen 04/19/23 07:10 04/19/23 07:20 04/19/23 07:28 Temperature Pulse Rate 62 61 60 Pulse Rate [Monitor Left] Respiratory Rate 19 17 22 Blood Pressure Blood Pressure [Left Arm] Pulse Oximetry 92 L Oxygen Delivery Method Vapotherm Oxygen Delivery Flow Rate 40 Fraction of Inspired Oxygen 95 04/19/23 09:00 04/19/23 10:54 Temperature Pulse Rate 74 Pulse Rate [Monitor Left] Respiratory Rate Blood Pressure Blood Pressure [Left Arm] Pulse Oximetry 95 Oxygen Delivery Method Vapotherm Oxygen Delivery Flow Rate 40 Fraction of Inspired Oxygen 95 Documenting provider has reviewed patient's vital signs: yes Common normals: no apparent distress General appearance: cooperative Nutritional appearance: obese Orientation/consciousness: Yes awake Other: appears sick and tired HENDE Common normals: normocephalic and head/scalp atraumatic Other: Wearing Vapotherm nasal cannula. Oral candidiasis still present, mainly right hard palate - markedly improved from initial discovery. Eye Common normals: conjunctivae normal and no scleral icterus Chest Common normals: inspection of chest normal Other: Palpable rhonchi Respiratory Other: Diminished breath sounds throughout. Scattered rhonchi. No wheeze Cardio Common normals: regular rhythm, S1 normal heart sound and S2 normal heart sound Rate: regular rate Rhythm: regular rhythm GI Common normals: Normal to inspection, nondistended, normoactive bowel sounds present Bladder/kidney exam: catheter in place Extremity Common normals: normal capillary refill and no clubbing, cyanosis or edema Neuro Common normals: oriented x3 Sensorium/orientation: awake and alert Psych Common normals: mental status grossly normal, thought process normal, denies homicidal ideation and denies suicidal ideation Attitude: calm (Patient continues to remain pleasant despite her severe medical status.) Internal Medicine - PN: Obj Da Labs Labs: Laboratory Results - last 24 hr 04/19/23 03:55 WBC 17.3 H RBC 4.19 L Hgb 12.6 Hct 37.4 MCV 89.3 MCH 30.1 MCHC 33.7 RDW 11.7 Plt Count 183 MPV 9.6 Neut % (Auto) 90.5 H Lymph % (Auto) 3.7 L [place] % (Auto) 3.9 Eos % (Auto) 0.0 L Baso % (Auto) 0.2 Neut # (Auto) 15.7 H Lymph # (Auto) 0.6 L [place] # (Auto) 0.7 Eos # (Auto) 0.0 Baso # (Auto) 0.0 Abs Immat Gran (auto) 0.30 H Imm/Tot Granulo (auto) 1.7 H Sodium 138 Potassium 4.6 Chloride 101 Carbon Dioxide 30.1 Anion Gap 11.5 BUN 31.0 H Creatinine 0.90 Est GFR ( Amer) >60 Est GFR (Non-Af Amer) >60 BUN/Creatinine Ratio 34.4 Glucose 197 H Calcium 8.4 L Total Bilirubin 0.2 AST 22 ALT 114 H Alkaline Phosphatase 73 Total Protein 5.4 L Albumin 2.4 L Globulin 3.0 Albumin/Globulin Ratio 0.8 Urinary Catheter Management Urinary Catheter Management Urethral: Cath placed during this visit: yes Urethral indwelling: No Reason for continuing: measure accurate output Insertion date: 04/14/23 Insertion time: 11:59
--- NOTE | 2023-04-19 12:03 | REH.PTDLY ---
Physical Therapy Daily Note PT Daily Note/Assess Start: 04/18/23 09:49 Freq: Status: Active Protocol: Document 04/19/23 11:45 LUPILLO (Rec: 04/19/23 12:02 [id number] Physical Therapy Daily Note/Assessment Time In 11:32 Time Out 11:42 Pain Level 0 Pain Level 0 Subjective Pt sitting in recliner bedside with vapotherm on. SpO2 reading 94% upon arrival. States she is feeling better. Therapeutic Exercise Minutes (minutes) 8 Therapeutic Exercise Units 1 Therapeutic Exercise Treatment Instructed pt in B LE seated exs 10x ea for improved strength of LEs. Standing exs performed 8-10x ea including HR, marching, and mini squats. SpO2 stays within 90-94% during exs. Cues for pt to focus on breathing during exs to prevent a drop in sats. Therapeutic Activity Minutes (minutes) 2 Therapeutic Activity Units 0 Chair Transfer Ability Standby Assistance Therapeutic Activity Comments Sit to stand transfers 2x SBA. 1 step forward and 1 step retro 10x with support of RW as pt is unable to ambulate any further due to short cord with vapotherm. SpO2 at 88% and quickly rises to 96% once resting. Total Therapy Minutes 10 Total Physical Therapy Units 1 Daily Note Summary Improvement in mobility and strength with exs with O2 sats not dropping like they had done previous date. Still limited with activity due to vapotherm, but mentally pt is eager to do more.
--- NOTE | 2023-04-19 12:12 | CM.NOTE ---
Rounds made with Dr. Ohara, no discharge for pt today will continue to follow for any discharge needs.
--- NOTE | 2023-04-19 13:37 | OT.DAILY ---
Occupational Therapy Daily Note OT Inpatient Daily Visit Note Start: 04/17/23 17:57 Freq: Status: Active Protocol: Document 04/19/23 13:31 CARMEN (Rec: 04/19/23 13:37 KGDEONTE [id number]) OT Visit Details Time In/Time Out Time In 12:35 Time Out 12:55 Pain In Pain N/A Pain Out Pain N/A OT Treatment Plan Subjective Subjective I feel like i'm doing better today Objective Objective Pt sitting up in chair upon arrival. Assessment Assessment Sit to std for 3 min using Rw to A with bal and stability. able to std and no loss bal with CGA for safety. Ed on ways to increase bal and stability when attempting to complete functional task at table top in rm B UE ROM stretches in bed. Able to complete stretches to all planes with no pain or irritation. No weights or resistive bands used on this date. Stretches to shld for flex/ext, IR/ER, Abd/Add, elbow flex/ext,wrist flex/ext. pronation/supination, digit flex/ext. O2 level remained between 89- 92% ed on PLB to increase blood O2 level. NO ADL done on this date due to pt reports already has been performed. Plan Plan Cont with current POC OT [employer] Timed Codes Therapeutic activity minutes (minutes) 20 Therapeutic activity units 2
--- NOTE | 2023-04-19 15:45 | RESP.RT ---
SpO2 95% on 40L, 90%; FiO2 decreased to 80%
--- NOTE | 2023-04-19 19:07 | RESP.RT ---
decreased to 70%
[2023-04-19] MEDS: BACLOFEN 10 MG TABLET 5 MG PO (22:23)
[2023-04-19] MEDS: PAROXETINE HCL 20 MG TABLET PO (22:26)
[2023-04-19] MEDS: TRAZODONE HCL 50 MG TABLET PO (22:26)
[2023-04-20] VITALS (60 sets, daily range): BP systolic 122–148; BP diastolic 63–90; PULSE 51–91; RESP 9–22; TEMP 36.1–36.8; O2SAT 89–98
[2023-04-20] MEDS: IPRATROPIUM/ALBUTEROL SULFATE 3 ML AMPUL.NEB IH ×6 (04:00→23:49)
[2023-04-20] MEDS: ACETYLCYSTEINE 400 MG/4 ML VIAL 200 MG IH ×6 (04:00→23:50)
[2023-04-20 05:42] LABS: Basophils Percent Auto 0.2 % (0.2-2.0); Hemoglobin 12.5 g/dL (12.0-16.0); Immature Granulocytes Abs Auto 0.27 10^3/uL (0.00-0.03); Immature Granulocytes Pct Auto 2.3 % (0.0-0.5); Lymphocytes Absolute Auto 0.5 10^3/uL (1.2-3.8); Lymphocytes Percent Auto 4.5 % (20.5-60.0); Mean Corpuscular HGB Conc 32.9 g/dL (29.9-35.2); Mean Corpuscular Hemoglobin 29.7 pg (26.7-34.0); Mean Corpuscular Volume 90.3 fL (81.0-99.0); Monocytes Absolute Auto 0.3 10^3/uL (0.3-0.8); Monocytes Percent Auto 2.5 % (1.7-12.0); Neutrophils Absolute Auto 10.6 10^3/uL (1.4-6.5); Neutrophils Percent Auto 90.5 % (43.0-75.0); Platelet Count 169 10^3/uL (150-450); Red Blood Count 4.21 10^6/uL (4.20-5.40); Red Cell Distribution Width 11.7 % (11.0-15.0); White Blood Count 11.7 10^3/uL (4.0-11.0)
[2023-04-20 06:00] LABS: Alanine Aminotransferase 96 U/L (14-59); Albumin Globulin Ratio 0.7; Albumin Level 2.4 g/dL (3.4-5.0); Alkaline Phosphatase 64 U/L (46-116); Anion Gap 10.4; Aspartate Amino Transferase 13 U/L (15-37); BUN Creatinine Ratio 36.7; Bilirubin Total 0.3 mg/dL (0.2-1.0); Calcium 8.2 mg/dL (8.5-10.1); Carbon Dioxide 31.5 mmol/L (21.0-32.0); Chloride 100 mmol/L (98-107); Estimated GFR (African America >60 (>=60); Estimated GFR (Non-African Ame >60 (>=60); Globulin 3.3 g/dL; Glucose 205 mg/dL (74-106); Potassium 4.9 mmol/L (3.5-5.1); Sodium 137 mmol/L (136-145); Total Protein 5.7 g/dL (6.4-8.2)
[2023-04-20] MEDS: HEPARIN SODIUM (PORCINE) 5,000 UNIT/ML VIAL 5000 UNIT SUBQ ×3 (06:41→21:19)
[2023-04-20] MEDS: NYSTATIN 500,000 UNIT/5 ML ORAL.SUSP 500000 UNIT PO ×4 (06:42→21:20)
[2023-04-20] MEDS: METHYLPREDNISOLONE SOD SUCC PF 125 MG/2 ML VIAL 60 MG IVP ×3 (06:43→21:15)
--- NOTE | 2023-04-20 07:36 | P.PLPN_ITS ---
Progress Note: A&P Assessment and Plan (1) COVID-19: Assessment and Plan: 1. Acute viral pneumonia secondary to COVID-19.? Cleared from isolation 04/14/2023. Post inflammatory phase. 2. Acute exacerbation of COPD.? Continue bronchodilators, steroids. 3. Acute hypoxic respiratory failure.? Multifactorial. Still dependent on Vapotherm and BiPAP - have only successfully weaned FiO2 on Vapotherm from 100% to 95%. She does continue to respond well to BiPAP, likely d/t recruitment from EPAP. 4. Severe pulmonary hypertension. Dilated pulmonary artery (38mm) on CTA 04/18/2023 (and 04/11/2023, though not mentioned on radiology report) with echocardiogram (04/18/2023) confirming a high pulmonary pressure with RVSP 72mmHg. New from 04/26/2020 (RVSP 27mmHg). I suspect this is COVID-19 related with the impaired O2 diffusion causing hypoxic-induced pulmonary vasoconstriction contributing to pulmonary hypertension.. Prior PFT 01/24/2022 showed DLCO 90% which I would expect to be lower if severe pulmonary hypertension were present then. Right heart catherization would be indicated, but with her respiratory failure, transport to a tertiary facility would be tricky...attempting to avoid intubation if at all possible. Regarding treatment, she is already on amlodipine 5mg. Unknown if PDE-5 would help or harm. Additionally unclear if the RV is volume dependent or not, so cautious about further diuresis. Will consult [facility] Cardiology for any further recommendations regarding this. 5. Mucus plugging. Present throughout the lungs, but especially lingula with complete collapse. Considered bronchoscopy, but given her severe hypoxic state, she would end up intubated, and I fear if that happens, weaning her off would be difficult. Will continue aggressive pulmonary toilet. IPV is not availble currently. Will add Vest on top of PEP and saline nebs. 6. Oral candidiasis. Secondary to steroids (systemic and inhaled) + antibiotics.? Candidiasis improved, but still persists. Continue nystatin for now. 7. Coronary artery disease.? Non-obstructive according to [facility] in 08/13/2018. C ontinues to deny any chest pain. Follows with [facility] Cardiology. 8. Leukocytosis. Most consistent with steroid-induced. Patient remains afebrile. Continue to monitor vitals. 9. Obesity with BMI 37.4.? Inducing a restrictive pulmonary physiology. Weight loss advised. Subjective Subjective Interval history: Seen and examined. Doing better. FiO2 requirment is down to 90% now. No events overnight. Exam Constitutional Vital Signs - 24 hr 04/19/23 09:00 04/19/23 10:54 04/19/23 11:00 Temperature Pulse Rate 74 79 Pulse Rate [Monitor Left] Respiratory Rate Blood Pressure Pulse Oximetry 95 Oxygen Delivery Method Vapotherm Oxygen Delivery Flow Rate 40 Fraction of Inspired Oxygen 95 04/19/23 07:40 04/19/23 07:50 04/19/23 08:00 Temperature Pulse Rate 76 70 71 Pulse Rate [Monitor Left] Respiratory Rate 20 20 20 Blood Pressure Pulse Oximetry Oxygen Delivery Method Oxygen Delivery Flow Rate Fraction of Inspired Oxygen 04/19/23 08:10 04/19/23 08:20 04/19/23 08:30 Temperature Pulse Rate 69 91 H 78 Pulse Rate [Monitor Left] Respiratory Rate 19 21 13 Blood Pressure Pulse Oximetry Oxygen Delivery Method Oxygen Delivery Flow Rate Fraction of Inspired Oxygen 04/19/23 08:40 04/19/23 08:50 04/19/23 09:00 Temperature Pulse Rate 75 75 Pulse Rate [Monitor Left] Respiratory Rate 17 20 Blood Pressure Pulse Oximetry 96 Oxygen Delivery Method Oxygen Delivery Flow Rate Fraction of Inspired Oxygen 04/19/23 09:10 04/19/23 09:20 04/19/23 09:30 Temperature Pulse Rate 74 73 78 Pulse Rate [Monitor Left] Respiratory Rate 21 20 21 Blood Pressure Pulse Oximetry Oxygen Delivery Method Oxygen Delivery Flow Rate Fraction of Inspired Oxygen 04/19/23 09:40 04/19/23 09:50 04/19/23 10:00 Temperature Pulse Rate 71 68 134 H Pulse Rate [Monitor Left] Respiratory Rate 20 18 29 H Blood Pressure Pulse Oximetry Oxygen Delivery Method Oxygen Delivery Flow Rate Fraction of Inspired Oxygen 04/19/23 10:10 04/19/23 10:20 04/19/23 10:30 Temperature Pulse Rate 68 72 72 Pulse Rate [Monitor Left] Respiratory Rate 13 27 H 15 Blood Pressure Pulse Oximetry Oxygen Delivery Method Oxygen Delivery Flow Rate Fraction of Inspired Oxygen 04/19/23 10:40 04/19/23 10:50 04/19/23 11:00 Temperature Pulse Rate 71 67 77 Pulse Rate [Monitor Left] Respiratory Rate 26 H 23 26 H Blood Pressure Pulse Oximetry Oxygen Delivery Method Oxygen Delivery Flow Rate Fraction of Inspired Oxygen 04/19/23 11:10 04/19/23 11:20 04/19/23 11:26 Temperature 97.9 F Pulse Rate 87 76 79 Pulse Rate [Monitor Left] Respiratory Rate 16 18 Blood Pressure 138/70 H Pulse Oximetry 93 L Oxygen Delivery Method Oxygen Delivery Flow Rate Fraction of Inspired Oxygen 04/19/23 11:26 04/19/23 11:26 04/19/23 13:00 Temperature Pulse Rate 77 66 Pulse Rate [Monitor Left] Respiratory Rate 21 Blood Pressure 138/70 H Pulse Oximetry 94 L Oxygen Delivery Method Oxygen Delivery Flow Rate Fraction of Inspired Oxygen 04/19/23 15:00 04/19/23 15:00 04/19/23 15:44 Temperature Pulse Rate 62 62 Pulse Rate [Monitor Left] Respiratory Rate Blood Pressure Pulse Oximetry 95 Oxygen Delivery Method Vapotherm Oxygen Delivery Flow Rate 40 Fraction of Inspired Oxygen 90 04/19/23 11:26 04/19/23 11:30 04/19/23 11:40 Temperature Pulse Rate 75 88 Pulse Rate [Monitor Left] Respiratory Rate 18 40 H Blood Pressure 138/70 H Pulse Oximetry 94 L Oxygen Delivery Method Oxygen Delivery Flow Rate Fraction of Inspired Oxygen 04/19/23 11:50 04/19/23 12:00 04/19/23 12:10 Temperature Pulse Rate 73 69 69 Pulse Rate [Monitor Left] Respiratory Rate 17 22 20 Blood Pressure Pulse Oximetry Oxygen Delivery Method Oxygen Delivery Flow Rate Fraction of Inspired Oxygen 04/19/23 12:20 04/19/23 12:30 04/19/23 12:40 Temperature Pulse Rate 68 75 71 Pulse Rate [Monitor Left] Respiratory Rate 16 20 14 Blood Pressure Pulse Oximetry Oxygen Delivery Method Oxygen Delivery Flow Rate Fraction of Inspired Oxygen 04/19/23 12:50 04/19/23 13:00 04/19/23 13:10 Temperature Pulse Rate 74 69 68 Pulse Rate [Monitor Left] Respiratory Rate 21 20 21 Blood Pressure Pulse Oximetry Oxygen Delivery Method Oxygen Delivery Flow Rate Fraction of Inspired Oxygen 04/19/23 13:20 04/19/23 13:30 04/19/23 13:40 Temperature Pulse Rate 66 68 67 Pulse Rate [Monitor Left] Respiratory Rate 18 12 18 Blood Pressure Pulse Oximetry Oxygen Delivery Method Oxygen Delivery Flow Rate Fraction of Inspired Oxygen 04/19/23 13:50 04/19/23 14:00 04/19/23 14:10 Temperature Pulse Rate 66 64 64 Pulse Rate [Monitor Left] Respiratory Rate 25 H 17 13 Blood Pressure Pulse Oximetry Oxygen Delivery Method Oxygen Delivery Flow Rate Fraction of Inspired Oxygen 04/19/23 14:20 04/19/23 14:30 04/19/23 14:40 Temperature Pulse Rate 59 L 59 L 59 L Pulse Rate [Monitor Left] Respiratory Rate 16 18 17 Blood Pressure Pulse Oximetry Oxygen Delivery Method Oxygen Delivery Flow Rate Fraction of Inspired Oxygen 04/19/23 14:50 04/19/23 15:00 04/19/23 15:10 Temperature Pulse Rate 60 69 72 Pulse Rate [Monitor Left] Respiratory Rate 14 15 21 Blood Pressure Pulse Oximetry Oxygen Delivery Method Oxygen Delivery Flow Rate Fraction of Inspired Oxygen 04/19/23 15:20 04/19/23 15:30 04/19/23 15:40 Temperature Pulse Rate 62 63 63 Pulse Rate [Monitor Left] Respiratory Rate 18 11 L 21 Blood Pressure Pulse Oximetry Oxygen Delivery Method Oxygen Delivery Flow Rate Fraction of Inspired Oxygen 04/19/23 15:48 04/19/23 15:48 04/19/23 15:50 Temperature 98 F Pulse Rate 70 69 68 Pulse Rate [Monitor Left] Respiratory Rate 22 19 Blood Pressure 130/75 H Pulse Oximetry 93 L Oxygen Delivery Method Oxygen Delivery Flow Rate Fraction of Inspired Oxygen 04/19/23 16:00 04/19/23 17:00 04/19/23 19:00 Temperature Pulse Rate 71 65 69 Pulse Rate [Monitor Left] Respiratory Rate 19 18 Blood Pressure Pulse Oximetry 98 Oxygen Delivery Method Vapotherm Oxygen Delivery Flow Rate 40 Fraction of Inspired Oxygen 80 04/19/23 19:40 04/19/23 19:40 04/19/23 20:00 Temperature Pulse Rate 90 64 Pulse Rate [Monitor Left] 66 Respiratory Rate 18 Blood Pressure Pulse Oximetry 92 L Oxygen Delivery Method Oxygen Delivery Flow Rate Fraction of Inspired Oxygen 04/19/23 17:00 04/19/23 18:00 04/19/23 19:00 Temperature Pulse Rate 67 70 72 Pulse Rate [Monitor Left] Respiratory Rate Blood Pressure Pulse Oximetry Oxygen Delivery Method Oxygen Delivery Flow Rate Fraction of Inspired Oxygen 04/19/23 20:00 04/19/23 20:04 04/19/23 20:04 Temperature Pulse Rate 73 79 Pulse Rate [Monitor Left] Respiratory Rate Blood Pressure 127/87 H Pulse Oximetry 91 L Oxygen Delivery Method Oxygen Delivery Flow Rate Fraction of Inspired Oxygen 04/19/23 20:04 04/19/23 21:00 04/19/23 21:30 Temperature Pulse Rate 61 59 L Pulse Rate [Monitor Left] Respiratory Rate Blood Pressure 127/87 H Pulse Oximetry 92 L Oxygen Delivery Method Oxygen Delivery Flow Rate Fraction of Inspired Oxygen 04/19/23 22:09 04/19/23 22:30 04/20/23 00:25 Temperature Pulse Rate 57 L 60 Pulse Rate [Monitor Left] 56 L Respiratory Rate 18 18 Blood Pressure Pulse Oximetry 92 L Oxygen Delivery Method Vapotherm Oxygen Delivery Flow Rate 40 Fraction of Inspired Oxygen 70 04/20/23 00:25 04/20/23 00:30 04/20/23 00:25 Temperature 97.8 F Pulse Rate 56 L Pulse Rate [Monitor Left] Respiratory Rate Blood Pressure 127/71 H Pulse Oximetry 95 Oxygen Delivery Method Oxygen Delivery Flow Rate Fraction of Inspired Oxygen 04/20/23 01:00 04/20/23 02:00 04/20/23 04:00 Temperature Pulse Rate 57 L 61 Pulse Rate [Monitor Left] Respiratory Rate Blood Pressure Pulse Oximetry 95 94 L Oxygen Delivery Method BIPAP Oxygen Delivery Flow Rate Fraction of Inspired Oxygen 55 04/20/23 04:00 04/20/23 04:20 04/20/23 04:00 Temperature Pulse Rate 51 L Pulse Rate [Monitor Left] 59 L Respiratory Rate 18 16 Blood Pressure Pulse Oximetry 94 L 94 L Oxygen Delivery Method BIPAP Oxygen Delivery Flow Rate Fraction of Inspired Oxygen 94 55 04/20/23 04:00 04/20/23 04:12 04/20/23 04:12 Temperature 98.0 F Pulse Rate 59 L 58 L 61 Pulse Rate [Monitor Left] Respiratory Rate 18 Blood Pressure 148/76 H Pulse Oximetry 94 L Oxygen Delivery Method Oxygen Delivery Flow Rate Fraction of Inspired Oxygen 55 04/20/23 04:12 04/20/23 04:30 04/20/23 06:00 Temperature Pulse Rate 62 59 L Pulse Rate [Monitor Left] Respiratory Rate Blood Pressure 148/76 H Pulse Oximetry 94 L Oxygen Delivery Method Oxygen Delivery Flow Rate Fraction of Inspired Oxygen 04/20/23 07:02 04/20/23 07:02 Temperature Pulse Rate 55 L Pulse Rate [Monitor Left] Respiratory Rate Blood Pressure Pulse Oximetry 94 L 94 L Oxygen Delivery Method Home BIPAP / CPAP Oxygen Delivery Flow Rate Fraction of Inspired Oxygen 55 55
[2023-04-20] MEDS: OMEPRAZOLE 40 MG CAPSULE.DR PO (08:43)
[2023-04-20] MEDS: GABAPENTIN 300 MG CAPSULE PO ×2 (08:43→21:12)
[2023-04-20] MEDS: GUAIFENESIN 600 MG TAB.ER.12H PO ×2 (08:44→21:13)
[2023-04-20] MEDS: CETIRIZINE HCL 10 MG TABLET 20 MG PO (08:44)
[2023-04-20] MEDS: SOLIFENACIN SUCCINATE 5 MG TABLET PO (08:44)
[2023-04-20] MEDS: AMLODIPINE BESYLATE 5 MG TABLET PO (08:45)
[2023-04-20] MEDS: INSULIN DETEMIR 300 UNIT/3 ML INSULN.PEN 20 UNIT SUBQ ×2 (08:46→21:19)
[2023-04-20] MEDS: MAGNESIUM OXIDE 400 MG TABLET PO (08:59)
[2023-04-20] MEDS: CHOLECALCIFEROL (VITAMIN D3) 25 MCG/1,000 UNITS TABLET PO (08:59)
--- NOTE | 2023-04-20 09:56 | P.PLPN_ITS ---
Progress Note: A&P Assessment and Plan (1) COVID-19: Assessment and Plan: 1. Acute viral pneumonia secondary to COVID-19.? Cleared from isolation 04/14/2023. Post inflammatory phase. 2. Acute exacerbation of COPD.? Continue bronchodilators, steroids. 3. Acute hypoxic respiratory failure.? Multifactorial. Still dependent on Vapotherm and BiPAP - beginning to show slight signs of improvement...able to wean down FiO2 to 80% on Vapotherm. She does continue to respond well to BiPAP, likely d/t recruitment from EPAP. She states she is tolerating flows and pressures. Will continue to wean down FiO2, maintain SpO2 ~90%. 4. Severe pulmonary hypertension. Dilated pulmonary artery (38mm) on CTA 04/18/2023, echocardiogram (04/18/2023) shows elevated RVSP 72mmHg. Spoke with cardiology; they had no immediate suggestions other than a right heart catheterization if/when patient is stable for transport. No additional treatment options were offered. Will continue current plan of care. 5. Mucus plugging. Continue aggressive pulmonary toilet - vest, PEP, saline nebs, etc. 6. Oral candidiasis. Secondary to steroids (systemic and inhaled) + antibiotics.? Continue nystatin. 7. Coronary artery disease.? Non-obstructive according to [facility] in 08/13/2018. Denies chest pain. 8. Leukocytosis. Most consistent with steroid-induced. Improved today, will likely fluctuate. Afebrile. 9. Obesity with BMI 37.4.? Inducing a restrictive pulmonary physiology. Weight loss advised. Subjective Subjective Interval history: Discussed with RN, RT. She is doing about the same. There has been slight improvement in her O2 needs...Vapotherm has been weaned down to FiO2 70%! She continues to use BiPAP @ HS and responds well to the EPAP of 7. Vest percussive device was started yesterday; patient states she is able to tolerate the frequency and amplitude of the vest and states she was able to expectorate a little more after that. No hemoptysis. Given the dilated pulmonary artery on CTA and elevated RVSP @ 72mmHg, I consulted cardiology (she already sees [facility] cardiology - Dr. Church). Dr. Limon was present in the clinic yesterday and I spoke with him in the afternoon. He stated it is a primary pulmonary issue secondary to COVID (which I am quite aware of) but he still recommended a right heart cath (what I suspected). I expressed my concerns about transporting the patient in her cur rent condition, as she may need to be intubated for transport; I am trying to avoid intubating the patient if possible, and I did not feel an elective intubation was critically necessary. He stated he was unable to provide me with any further recommendations beyond what is being done, once again reiterating it was a primary pulmonary issue; I therefore canceled the cardiology consultation. Exam Constitutional Vital Signs - 24 hr 04/19/23 10:54 04/19/23 11:00 04/19/23 10:00 Temperature Pulse Rate 79 134 H Pulse Rate [Monitor Left] Respiratory Rate 29 H Blood Pressure Pulse Oximetry 95 Oxygen Delivery Method Vapotherm Oxygen Delivery Flow Rate 40 Fraction of Inspired Oxygen 95 04/19/23 10:10 04/19/23 10:20 04/19/23 10:30 Temperature Pulse Rate 68 72 72 Pulse Rate [Monitor Left] Respiratory Rate 13 27 H 15 Blood Pressure Pulse Oximetry Oxygen Delivery Method Oxygen Delivery Flow Rate Fraction of Inspired Oxygen 04/19/23 10:40 04/19/23 10:50 04/19/23 11:00 Temperature Pulse Rate 71 67 77 Pulse Rate [Monitor Left] Respiratory Rate 26 H 23 26 H Blood Pressure Pulse Oximetry Oxygen Delivery Method Oxygen Delivery Flow Rate Fraction of Inspired Oxygen 04/19/23 11:10 04/19/23 11:20 04/19/23 11:26 Temperature 97.9 F Pulse Rate 87 76 79 Pulse Rate [Monitor Left] Respiratory Rate 16 18 Blood Pressure 138/70 H Pulse Oximetry 93 L Oxygen Delivery Method Oxygen Delivery Flow Rate Fraction of Inspired Oxygen 04/19/23 11:26 04/19/23 11:26 04/19/23 13:00 Temperature Pulse Rate 77 66 Pulse Rate [Monitor Left] Respiratory Rate 21 Blood Pressure 138/70 H Pulse Oximetry 94 L Oxygen Delivery Method Oxygen Delivery Flow Rate Fraction of Inspired Oxygen 04/19/23 15:00 04/19/23 15:00 04/19/23 15:44 Temperature Pulse Rate 62 62 Pulse Rate [Monitor Left] Respiratory Rate Blood Pressure Pulse Oximetry 95 Oxygen Delivery Method Vapotherm Oxygen Delivery Flow Rate 40 Fraction of Inspired Oxygen 90 04/19/23 11:26 04/19/23 11:30 04/19/23 11:40 Temperature Pulse Rate 75 88 Pulse Rate [Monitor Left] Respiratory Rate 18 40 H Blood Pressure 138/70 H Pulse Oximetry 94 L Oxygen Delivery Method Oxygen Delivery Flow Rate Fraction of Inspired Oxygen 04/19/23 11:50 04/19/23 12:00 04/19/23 12:10 Temperature Pulse Rate 73 69 69 Pulse Rate [Monitor Left] Respiratory Rate 17 22 20 Blood Pressure Pulse Oximetry Oxygen Delivery Method Oxygen Delivery Flow Rate Fraction of Inspired Oxygen 04/19/23 12:20 04/19/23 12:30 04/19/23 12:40 Temperature Pulse Rate 68 75 71 Pulse Rate [Monitor Left] Respiratory Rate 16 20 14 Blood Pressure Pulse Oximetry Oxygen Delivery Method Oxygen Delivery Flow Rate Fraction of Inspired Oxygen 04/19/23 12:50 04/19/23 13:00 04/19/23 13:10 Temperature Pulse Rate 74 69 68 Pulse Rate [Monitor Left] Respiratory Rate 21 20 21 Blood Pressure Pulse Oximetry Oxygen Delivery Method Oxygen Delivery Flow Rate Fraction of Inspired Oxygen 04/19/23 13:20 04/19/23 13:30 04/19/23 13:40 Temperature Pulse Rate 66 68 67 Pulse Rate [Monitor Left] Respiratory Rate 18 12 18 Blood Pressure Pulse Oximetry Oxygen Delivery Method Oxygen Delivery Flow Rate Fraction of Inspired Oxygen 04/19/23 13:50 04/19/23 14:00 04/19/23 14:10 Temperature Pulse Rate 66 64 64 Pulse Rate [Monitor Left] Respiratory Rate 25 H 17 13 Blood Pressure Pulse Oximetry Oxygen Delivery Method Oxygen Delivery Flow Rate Fraction of Inspired Oxygen 04/19/23 14:20 04/19/23 14:30 04/19/23 14:40 Temperature Pulse Rate 59 L 59 L 59 L Pulse Rate [Monitor Left] Respiratory Rate 16 18 17 Blood Pressure Pulse Oximetry Oxygen Delivery Method Oxygen Delivery Flow Rate Fraction of Inspired Oxygen 04/19/23 14:50 04/19/23 15:00 04/19/23 15:10 Temperature Pulse Rate 60 69 72 Pulse Rate [Monitor Left] Respiratory Rate 14 15 21 Blood Pressure Pulse Oximetry Oxygen Delivery Method Oxygen Delivery Flow Rate Fraction of Inspired Oxygen 04/19/23 15:20 04/19/23 15:30 04/19/23 15:40 Temperature Pulse Rate 62 63 63 Pulse Rate [Monitor Left] Respiratory Rate 18 11 L 21 Blood Pressure Pulse Oximetry Oxygen Delivery Method Oxygen Delivery Flow Rate Fraction of Inspired Oxygen 04/19/23 15:48 04/19/23 15:48 04/19/23 15:50 Temperature 98 F Pulse Rate 70 69 68 Pulse Rate [Monitor Left] Respiratory Rate 22 19 Blood Pressure 130/75 H Pulse Oximetry 93 L Oxygen Delivery Method Oxygen Delivery Flow Rate Fraction of Inspired Oxygen 04/19/23 16:00 04/19/23 17:00 04/19/23 19:00 Temperature Pulse Rate 71 65 69 Pulse Rate [Monitor Left] Respiratory Rate 19 18 Blood Pressure Pulse Oximetry 98 Oxygen Delivery Method Vapotherm Oxygen Delivery Flow Rate 40 Fraction of Inspired Oxygen 80 04/19/23 19:40 04/19/23 19:40 04/19/23 20:00 Temperature Pulse Rate 90 64 Pulse Rate [Monitor Left] 66 Respiratory Rate 18 Blood Pressure Pulse Oximetry 92 L Oxygen Delivery Method Oxygen Delivery Flow Rate Fraction of Inspired Oxygen 04/19/23 17:00 04/19/23 18:00 04/19/23 19:00 Temperature Pulse Rate 67 70 72 Pulse Rate [Monitor Left] Respiratory Rate Blood Pressure Pulse Oximetry Oxygen Delivery Method Oxygen Delivery Flow Rate Fraction of Inspired Oxygen 04/19/23 20:00 04/19/23 20:04 04/19/23 20:04 Temperature Pulse Rate 73 79 Pulse Rate [Monitor Left] Respiratory Rate Blood Pressure 127/87 H Pulse Oximetry 91 L Oxygen Delivery Method Oxygen Delivery Flow Rate Fraction of Inspired Oxygen 04/19/23 20:04 04/19/23 21:00 04/19/23 21:30 Temperature Pulse Rate 61 59 L Pulse Rate [Monitor Left] Respiratory Rate Blood Pressure 127/87 H Pulse Oximetry 92 L Oxygen Delivery Method Oxygen Delivery Flow Rate Fraction of Inspired Oxygen 04/19/23 22:09 04/19/23 22:30 04/20/23 00:25 Temperature Pulse Rate 57 L 60 Pulse Rate [Monitor Left] 56 L Respiratory Rate 18 18 Blood Pressure Pulse Oximetry 92 L Oxygen Delivery Method Vapotherm Oxygen Delivery Flow Rate 40 Fraction of Inspired Oxygen 70 04/20/23 00:25 04/20/23 00:30 04/20/23 00:25 Temperature 97.8 F Pulse Rate 56 L Pulse Rate [Monitor Left] Respiratory Rate Blood Pressure 127/71 H Pulse Oximetry 95 Oxygen Delivery Method Oxygen Delivery Flow Rate Fraction of Inspired Oxygen 06/15/23 01:00 04/20/23 02:00 04/20/23 04:00 Temperature Pulse Rate 57 L 61 Pulse Rate [Monitor Left] Respiratory Rate Blood Pressure Pulse Oximetry 95 94 L Oxygen Delivery Method BIPAP Oxygen Delivery Flow Rate Fraction of Inspired Oxygen 55 04/20/23 04:00 04/20/23 04:20 04/20/23 04:00 Temperature Pulse Rate 51 L Pulse Rate [Monitor Left] 59 L Respiratory Rate 18 16 Blood Pressure Pulse Oximetry 94 L 94 L Oxygen Delivery Method BIPAP Oxygen Delivery Flow Rate Fraction of Inspired Oxygen 94 55 04/20/23 04:00 04/20/23 04:12 04/20/23 04:12 Temperature 98.0 F Pulse Rate 59 L 58 L 61 Pulse Rate [Monitor Left] Respiratory Rate 18 Blood Pressure 148/76 H Pulse Oximetry 94 L Oxygen Delivery Method Oxygen Delivery Flow Rate Fraction of Inspired Oxygen 55 04/20/23 04:12 04/20/23 04:30 04/20/23 06:00 Temperature Pulse Rate 62 59 L Pulse Rate [Monitor Left] Respiratory Rate Blood Pressure 148/76 H Pulse Oximetry 94 L Oxygen Delivery Method Oxygen Delivery Flow Rate Fraction of Inspired Oxygen 04/20/23 07:02 04/20/23 07:02 04/20/23 07:15 Temperature Pulse Rate 55 L 63 Pulse Rate [Monitor Left] Respiratory Rate Blood Pressure Pulse Oximetry 94 L 94 L 98 Oxygen Delivery Method Home BIPAP / CPAP Oxygen Delivery Flow Rate Fraction of Inspired Oxygen 55 55 04/20/23 08:21 04/20/23 08:27 04/20/23 05:00 Temperature 98 F 98.0 F Pulse Rate 61 60 Pulse Rate [Monitor Left] 84 Respiratory Rate 19 20 Blood Pressure 146/89 H Pulse Oximetry 96 96 Oxygen Delivery Method Oxygen Delivery Flow Rate Fraction of Inspired Oxygen 04/20/23 05:30 04/20/23 06:00 04/20/23 06:30 Temperature Pulse Rate 58 L 56 L 57 L Pulse Rate [Monitor Left] Respiratory Rate Blood Pressure Pulse Oximetry Oxygen Delivery Method Oxygen Delivery Flow Rate Fraction of Inspired Oxygen 04/20/23 07:00 04/20/23 07:30 04/20/23 07:52 Temperature Pulse Rate 56 L 60 Pulse Rate [Monitor Left] Respiratory Rate Blood Pressure 145/83 H Pulse Oximetry 97 Oxygen Delivery Method Oxygen Delivery Flow Rate Fraction of Inspired Oxygen 04/20/23 07:52 04/20/23 07:52 04/20/23 08:00 Temperature Pulse Rate 66 71 Pulse Rate [Monitor Left] Respiratory Rate Blood Pressure 145/83 H Pulse Oximetry 96 Oxygen Delivery Method Oxygen Delivery Flow Rate Fraction of Inspired Oxygen 04/20/23 08:45 04/20/23 09:05 Temperature Pulse Rate 69 Pulse Rate [Monitor Left] Respiratory Rate Blood Pressure 145/83 H Pulse Oximetry 89 L Oxygen Delivery Method Oxygen Delivery Flow Rate Fraction of Inspired Oxygen Documenting provider has reviewed patient's vital signs: yes Common normals: no apparent distress General appearance: cooperative and comfortable HENMT Other: Wearing BiPAP Chest Common normals: inspection of chest normal and palpation of chest normal Respiratory Common normals: normal respiratory effort Effort & inspection: symmetric chest movement Other: Diminished breath sounds, slightly less crackles/rhonchi today. No wheezes. Cardio Rate: regular rate Rhythm: regular rhythm GI Common normals: Normal to inspection, nondistended, normoactive bowel sounds present Bladder/kidney exam: catheter in place Extremity Common normals: no clubbing, cyanosis or edema Neuro Common normals: moves all extremities and no focal motor deficits Psych Attitude: calm (She continues to maintain a positive outlook and friendly demeanor.)
--- NOTE | 2023-04-20 10:49 | REH.PTDLY ---
Physical Therapy Daily Note PT Daily Note/Assess Start: 04/18/23 09:49 Freq: Status: Active Protocol: Document 04/20/23 09:30 LUPILLO (Rec: 04/20/23 10:49 [id number] Physical Therapy Daily Note/Assessment Time In 09:15 Time Out 09:30 Pain Level 0 Subjective No complaints today, still on vapotherm but is reduced from previous date Therapeutic Exercise Minutes (minutes) 6 Therapeutic Exercise Units 0 Therapeutic Exercise Treatment Instructed in B LE HR, marching, mini squats in standing 10x ea with UE support for improved strength . Therapeutic Activity Minutes (minutes) 8 Therapeutic Activity Units 1 Bed Mobility Ability Independent Chair Transfer Ability Independent Therapeutic Activity Comments Pt Ind with transfers. Standing balance is good with UE support on RW. Pt stood for 6 mins at one time while performing exs and getting herself cleaned up. Consecutive sit to stand transfers 5x. No drop in O2 sats. Total Therapy Minutes 14 Total Physical Therapy Units 1 Daily Note Summary Pt does well with visit today. Ind with transfers. SpO2 does not drop below 89% during rx today. This only happened once and went back to 92% quickly. Still limited due to vapotherm and unable to ambulate any distance.
[2023-04-20] MEDS: MONTELUKAST SODIUM 10 MG TABLET PO (11:05)
[2023-04-20] MEDS: INSULIN ASPART 300 UNIT/3 ML PEN SUBQ ×3 (11:07→21:18)
--- NOTE | 2023-04-20 12:30 | PM.IMPN1 ---
Progress Note: A&P Assessment and Plan (1) COVID-19: Assessment and Plan: Feeling better today. Slighlty improved oxygenation. (2) Hypertension: Assessment and Plan: C/w amlodipine. At goal HCTZ on hold Qualifiers: Hypertension type: primary hypertension Qualified Code(s): I10 - Essential (primary) hypertension (3) Chronic low back pain: Assessment and Plan: On gabapentin. C/w same Qualifiers: Back pain laterality: midline Sciatica presence: without sciatica Qualified Code(s): M54.50 - Low back pain, unspecified; G89.29 - Other chronic pain (4) Asthma with acute exacerbation: Assessment and Plan: Severe persistent asthma at baseline. On trelegy as outpatient. Currently on mucomyst, mucinex, solumedrol and duonebs. No wheezing on exam. Qualifiers: Asthma severity: severe Asthma persistence: persistent Qualified Code(s): J45.51 - Severe persistent asthma with (acute) exacerbation (5) Respiratory failure with hypoxia: Assessment and Plan: Encourage prone positioning. C/w current treatment. Monitor closely. CTA shows mucus plugging - too sick for Bronchoscopy. Pulm HTN - Cardiology consulted by Pulm s/p Glory for empirical antibacterial coverage against bacterial PNA. Qualifiers: Chronicity: acute Qualified Code(s): J96.01 - Acute respiratory failure with hypoxia (6) Depression: Assessment and Plan: C/w Trazodone and Paxil Qualifiers: Depression Type: major depressive disorder Major depression recurrence: recurrent Active/Remission status: in full remission Qualified Code(s): F33.42 - Major depressive disorder, recurrent, in full remission (7) Hypokalemia: Assessment and Plan: Improved. C/w oral potassium (8) JEANNE (acute kidney injury): Assessment and Plan: likely from diuresis. resolved with IV hydration (9) Dehydration determined by examination: Assessment and Plan: Improved with IV hydration. Poor Po intake. Internal Medicine - PN: Subj Subjective Interval history: Seen and examined. Doing well. Feeling better. FiO2 requirement down to 70% Exam Constitutional Vital Signs - 24 hr 04/19/23 13:00 04/19/23 15:00 04/19/23 15:00 Temperature Pulse Rate 66 62 62 Pulse Rate [Monitor Left] Respiratory Rate Blood Pressure Pulse Oximetry Oxygen Delivery Method Oxygen Delivery Flow Rate Fraction of Inspired Oxygen 04/19/23 15:44 04/19/23 12:40 04/19/23 12:50 Temperature Pulse Rate 71 74 Pulse Rate [Monitor Left] Respiratory Rate 14 21 Blood Pressure Pulse Oximetry 95 Oxygen Delivery Method Vapotherm Oxygen Delivery Flow Rate 40 Fraction of Inspired Oxygen 90 04/19/23 13:00 04/19/23 13:10 04/19/23 13:20 Temperature Pulse Rate 69 68 66 Pulse Rate [Monitor Left] Respiratory Rate 20 21 18 Blood Pressure Pulse Oximetry Oxygen Delivery Method Oxygen Delivery Flow Rate Fraction of Inspired Oxygen 04/19/23 13:30 04/19/23 13:40 04/19/23 13:50 Temperature Pulse Rate 68 67 66 Pulse Rate [Monitor Left] Respiratory Rate 12 18 25 H Blood Pressure Pulse Oximetry Oxygen Delivery Method Oxygen Delivery Flow Rate Fraction of Inspired Oxygen 04/19/23 14:00 04/19/23 14:10 04/19/23 14:20 Temperature Pulse Rate 64 64 59 L Pulse Rate [Monitor Left] Respiratory Rate 17 13 16 Blood Pressure Pulse Oximetry Oxygen Delivery Method Oxygen Delivery Flow Rate Fraction of Inspired Oxygen 04/19/23 14:30 04/19/23 14:40 04/19/23 14:50 Temperature Pulse Rate 59 L 59 L 60 Pulse Rate [Monitor Left] Respiratory Rate 18 17 14 Blood Pressure Pulse Oximetry Oxygen Delivery Method Oxygen Delivery Flow Rate Fraction of Inspired Oxygen 04/19/23 15:00 04/19/23 15:10 04/19/23 15:20 Temperature Pulse Rate 69 72 62 Pulse Rate [Monitor Left] Respiratory Rate 15 21 18 Blood Pressure Pulse Oximetry Oxygen Delivery Method Oxygen Delivery Flow Rate Fraction of Inspired Oxygen 04/19/23 15:30 04/19/23 15:40 04/19/23 15:48 Temperature 98 F Pulse Rate 63 63 70 Pulse Rate [Monitor Left] Respiratory Rate 11 L 21 Blood Pressure 130/75 H Pulse Oximetry 93 L Oxygen Delivery Method Oxygen Delivery Flow Rate Fraction of Inspired Oxygen 04/19/23 15:48 04/19/23 15:50 04/19/23 16:00 Temperature Pulse Rate 69 68 71 Pulse Rate [Monitor Left] Respiratory Rate 22 19 19 Blood Pressure Pulse Oximetry Oxygen Delivery Method Oxygen Delivery Flow Rate Fraction of Inspired Oxygen 04/19/23 17:00 04/19/23 19:00 04/19/23 19:40 Temperature Pulse Rate 65 69 90 Pulse Rate [Monitor Left] Respiratory Rate 18 Blood Pressure Pulse Oximetry 98 92 L Oxygen Delivery Method Vapotherm Oxygen Delivery Flow Rate 40 Fraction of Inspired Oxygen 80 04/19/23 19:40 04/19/23 20:00 04/19/23 17:00 Temperature Pulse Rate 64 67 Pulse Rate [Monitor Left] 66 Respiratory Rate 18 Blood Pressure Pulse Oximetry Oxygen Delivery Method Oxygen Delivery Flow Rate Fraction of Inspired Oxygen 04/19/23 18:00 04/19/23 19:00 04/19/23 20:00 Temperature Pulse Rate 70 72 73 Pulse Rate [Monitor Left] Respiratory Rate Blood Pressure Pulse Oximetry Oxygen Delivery Method Oxygen Delivery Flow Rate Fraction of Inspired Oxygen 04/19/23 20:04 04/19/23 20:04 04/19/23 20:04 Temperature Pulse Rate 79 Pulse Rate [Monitor Left] Respiratory Rate Blood Pressure 127/87 H 127/87 H Pulse Oximetry 91 L 92 L Oxygen Delivery Method Oxygen Delivery Flow Rate Fraction of Inspired Oxygen 04/19/23 21:00 04/19/23 21:30 04/19/23 22:09 Temperature Pulse Rate 61 59 L 57 L Pulse Rate [Monitor Left] Respiratory Rate 18 Blood Pressure Pulse Oximetry 92 L Oxygen Delivery Method Vapotherm Oxygen Delivery Flow Rate 40 Fraction of Inspired Oxygen 70 04/19/23 22:30 04/20/23 00:25 04/20/23 00:25 Temperature Pulse Rate 60 56 L Pulse Rate [Monitor Left] 56 L Respiratory Rate 18 Blood Pressure Pulse Oximetry Oxygen Delivery Method Oxygen Delivery Flow Rate Fraction of Inspired Oxygen 04/20/23 00:30 04/20/23 00:25 04/20/23 01:00 Temperature 97.8 F Pulse Rate 57 L Pulse Rate [Monitor Left] Respiratory Rate Blood Pressure 127/71 H Pulse Oximetry 95 Oxygen Delivery Method Oxygen Delivery Flow Rate Fraction of Inspired Oxygen 04/20/23 02:00 04/20/23 04:00 04/20/23 04:00 Temperature Pulse Rate 61 51 L Pulse Rate [Monitor Left] Respiratory Rate 18 Blood Pressure Pulse Oximetry 95 94 L 94 L Oxygen Delivery Method BIPAP BIPAP Oxygen Delivery Flow Rate Fraction of Inspired Oxygen 55 94 04/20/23 04:20 04/20/23 04:00 04/20/23 04:00 Temperature Pulse Rate 59 L Pulse Rate [Monitor Left] 59 L Respiratory Rate 16 Blood Pressure Pulse Oximetry 94 L Oxygen Delivery Method Oxygen Delivery Flow Rate Fraction of Inspired Oxygen 55 04/20/23 04:12 04/20/23 04:12 04/20/23 04:12 Temperature 98.0 F Pulse Rate 58 L 61 Pulse Rate [Monitor Left] Respiratory Rate 18 Blood Pressure 148/76 H 148/76 H Pulse Oximetry 94 L 94 L Oxygen Delivery Method Oxygen Delivery Flow Rate Fraction of Inspired Oxygen 55 04/20/23 04:30 04/20/23 06:00 04/20/23 07:02 Temperature Pulse Rate 62 59 L 55 L Pulse Rate [Monitor Left] Respiratory Rate Blood Pressure Pulse Oximetry 94 L Oxygen Delivery Method Oxygen Delivery Flow Rate Fraction of Inspired Oxygen 55 04/20/23 07:02 04/20/23 07:15 04/20/23 08:21 Temperature Pulse Rate 63 Pulse Rate [Monitor Left] 84 Respiratory Rate 19 Blood Pressure Pulse Oximetry 94 L 98 Oxygen Delivery Method Home BIPAP / CPAP Oxygen Delivery Flow Rate Fraction of Inspired Oxygen 55 04/20/23 08:27 04/20/23 05:00 04/20/23 05:30 Temperature 98 F 98.0 F Pulse Rate 61 60 58 L Pulse Rate [Monitor Left] Respiratory Rate 20 Blood Pressure 146/89 H Pulse Oximetry 96 96 Oxygen Delivery Method Oxygen Delivery Flow Rate Fraction of Inspired Oxygen 04/20/23 06:00 04/20/23 06:30 04/20/23 07:00 Temperature Pulse Rate 56 L 57 L 56 L Pulse Rate [Monitor Left] Respiratory Rate Blood Pressure Pulse Oximetry Oxygen Delivery Method Oxygen Delivery Flow Rate Fraction of Inspired Oxygen 04/20/23 07:30 04/20/23 07:52 04/20/23 07:52 Temperature Pulse Rate 60 66 Pulse Rate [Monitor Left] Respiratory Rate Blood Pressure 145/83 H Pulse Oximetry 97 Oxygen Delivery Method Oxygen Delivery Flow Rate Fraction of Inspired Oxygen 04/20/23 07:52 04/20/23 08:00 04/20/23 08:45 Temperature Pulse Rate 71 Pulse Rate [Monitor Left] Respiratory Rate Blood Pressure 145/83 H 145/83 H Pulse Oximetry 96 Oxygen Delivery Method Oxygen Delivery Flow Rate Fraction of Inspired Oxygen 04/20/23 09:05 04/20/23 11:12 04/20/23 11:34 Temperature Pulse Rate 69 91 H Pulse Rate [Monitor Left] Respiratory Rate Blood Pressure Pulse Oximetry 89 L 91 L Oxygen Delivery Method Vapotherm Oxygen Delivery Flow Rate 40 Fraction of Inspired Oxygen 70 04/20/23 12:21 04/20/23 12:21 04/20/23 12:26 Temperature Pulse Rate 62 Pulse Rate [Monitor Left] 59 L 61 Respiratory Rate 19 18 18 Blood Pressure Pulse Oximetry Oxygen Delivery Method Vapotherm Oxygen Delivery Flow Rate 40 Fraction of Inspired Oxygen Documenting provider has reviewed patient's vital signs: yes Common normals: no apparent distress General appearance: cooperative Nutritional appearance: obese Orientation/consciousness: Yes awake Other: appears sick and tired HENMT Common normals: normocephalic Eye Common normals: conjunctivae normal and no scleral icterus Chest Common normals: inspection of chest normal Respiratory Other: Diminished breath sounds throughout. Scattered rhonchi. No wheeze Cardio Common normals: regular rhythm, S1 normal heart sound and S2 normal heart sound Rate: regular rate Rhythm: regular rhythm GI Common normals: Normal to inspection, nondistended, normoactive bowel sounds present Bladder/kidney exam: catheter in place Extremity Common normals: normal capillary refill and no clubbing, cyanosis or edema Neuro Common normals: oriented x3 Sensorium/orientation: awake and alert Psych Common normals: mental status grossly normal, thought process normal, denies homicidal ideation and denies suicidal ideation Attitude: calm (Patient continues to remain pleasant despite her severe medical status.) Internal Medicine - PN: Obj Da Labs Labs: Laboratory Results - last 24 hr 04/20/23 04:20 WBC 11.7 H RBC 4.21 Hgb 12.5 Hct 38.0 MCV 90.3 MCH 29.7 MCHC 32.9 RDW 11.7 Plt Count 169 MPV 10.0 Neut % (Auto) 90.5 H Lymph % (Auto) 4.[address] [place] % (Auto) 2.5 Eos % (Auto) 0.0 L Baso % (Auto) 0.2 Neut # (Auto) 10.6 H Lymph # (Auto) 0.[address] [place] # (Auto) 0.3 Eos # (Auto) 0.0 Baso # (Auto) 0.0 Abs Immat Gran (auto) 0.27 H Imm/Tot Granulo (auto) 2.3 H Sodium 137 Potassium 4.9 Chloride 100 Carbon Dioxide 31.5 Anion Gap 10.4 BUN 33.0 H Creatinine 0.90 Est GFR ( Amer) >60 Est GFR (Non-Af Amer) >60 BUN/Creatinine Ratio 36.7 Glucose 205 H Calcium 8.2 L Total Bilirubin 0.3 AST 13 L ALT 96 H Alkaline Phosphatase 64 Total Protein 5.7 L Albumin 2.4 L Globulin 3.3 Albumin/Globulin Ratio 0.7 Urinary Catheter Management Urinary Catheter Management Urethral: Cath placed during this visit: yes Urethral indwelling: No Reason for continuing: acute urinary retention Insertion date: 04/14/23 Insertion time: 11:59
--- NOTE | 2023-04-20 12:48 | CM.NOTE ---
Rounds made with Dr. Ohara, no discharge today. Attempting to wean off vapotherm.
--- NOTE | 2023-04-20 14:41 | SWNOTE1 ---
SW did reach out to [facility] and they can do high flow oxygen and they max out at 60%.
--- NOTE | 2023-04-20 19:57 | PC.NURSE ---
at aprox 1920pm ty[facility] adkins was called and per hospital protocol pt was moved to [facility] area in hospital with myself medical staff and continues to be montiored continuously
[2023-04-20] MEDS: BACLOFEN 10 MG TABLET 5 MG PO (21:13)
[2023-04-20] MEDS: TRAZODONE HCL 50 MG TABLET PO (21:20)
[2023-04-20] MEDS: PAROXETINE HCL 20 MG TABLET PO (21:20)
[2023-04-21] VITALS (23 sets, daily range): BP systolic 95–143; BP diastolic 52–73; PULSE 63–145; RESP 15–22; TEMP 36.7–37; O2SAT 90–96
[2023-04-21] MEDS: ACETYLCYSTEINE 400 MG/4 ML VIAL 200 MG IH ×6 (03:59→23:04)
[2023-04-21] MEDS: IPRATROPIUM/ALBUTEROL SULFATE 3 ML AMPUL.NEB IH ×6 (03:59→23:04)
[2023-04-21 05:07] LABS: Basophils Percent Auto 0.3 % (0.2-2.0); Hematocrit 36.6 % (36.0-48.0); Hemoglobin 12.3 g/dL (12.0-16.0); Immature Granulocytes Abs Auto 0.35 10^3/uL (0.00-0.03); Immature Granulocytes Pct Auto 3.3 % (0.0-0.5); Lymphocytes Absolute Auto 0.4 10^3/uL (1.2-3.8); Lymphocytes Percent Auto 3.3 % (20.5-60.0); Mean Corpuscular HGB Conc 33.6 g/dL (29.9-35.2); Mean Corpuscular Hemoglobin 30.4 pg (26.7-34.0); Mean Corpuscular Volume 90.4 fL (81.0-99.0); Mean Platelet Volume 9.8 fL (9.5-13.5); Monocytes Absolute Auto 0.3 10^3/uL (0.3-0.8); Monocytes Percent Auto 2.8 % (1.7-12.0); Neutrophils Absolute Auto 9.5 10^3/uL (1.4-6.5); Neutrophils Percent Auto 90.3 % (43.0-75.0); Platelet Count 168 10^3/uL (150-450); Red Blood Count 4.05 10^6/uL (4.20-5.40); Red Cell Distribution Width 11.8 % (11.0-15.0); White Blood Count 10.5 10^3/uL (4.0-11.0)
[2023-04-21 05:30] LABS: Alanine Aminotransferase 82 U/L (14-59); Albumin Globulin Ratio 0.8; Albumin Level 2.4 g/dL (3.4-5.0); Alkaline Phosphatase 83 U/L (46-116); Aspartate Amino Transferase 12 U/L (15-37); BUN Creatinine Ratio 36.5; Bilirubin Total 0.2 mg/dL (0.2-1.0); Calcium 8.3 mg/dL (8.5-10.1); Carbon Dioxide 27.9 mmol/L (21.0-32.0); Chloride 100 mmol/L (98-107); Estimated GFR (African America >60 (>=60); Estimated GFR (Non-African Ame 58 (>=60); Globulin 3.1 g/dL; Glucose 280 mg/dL (74-106); Potassium 4.9 mmol/L (3.5-5.1); Sodium 136 mmol/L (136-145); Total Protein 5.5 g/dL (6.4-8.2)
[2023-04-21] MEDS: HEPARIN SODIUM (PORCINE) 5,000 UNIT/ML VIAL 5000 UNIT SUBQ ×3 (06:22→21:22)
[2023-04-21] MEDS: METHYLPREDNISOLONE SOD SUCC PF 125 MG/2 ML VIAL 60 MG IVP (06:22)
[2023-04-21] MEDS: NYSTATIN 500,000 UNIT/5 ML ORAL.SUSP 500000 UNIT PO ×4 (06:23→21:22)
[2023-04-21] MEDS: INSULIN ASPART 300 UNIT/3 ML PEN SUBQ ×4 (08:34→21:22)
[2023-04-21] MEDS: INSULIN DETEMIR 300 UNIT/3 ML INSULN.PEN 20 UNIT SUBQ ×2 (08:34→21:21)
[2023-04-21] MEDS: SOLIFENACIN SUCCINATE 5 MG TABLET PO (08:49)
[2023-04-21] MEDS: MAGNESIUM OXIDE 400 MG TABLET PO (08:49)
[2023-04-21] MEDS: AMLODIPINE BESYLATE 5 MG TABLET PO (08:49)
[2023-04-21] MEDS: CHOLECALCIFEROL (VITAMIN D3) 25 MCG/1,000 UNITS TABLET PO (08:49)
[2023-04-21] MEDS: OMEPRAZOLE 40 MG CAPSULE.DR PO (08:49)
[2023-04-21] MEDS: GABAPENTIN 300 MG CAPSULE PO ×2 (08:49→21:20)
[2023-04-21] MEDS: CETIRIZINE HCL 10 MG TABLET 20 MG PO (08:49)
[2023-04-21] MEDS: MONTELUKAST SODIUM 10 MG TABLET PO (08:49)
[2023-04-21] MEDS: GUAIFENESIN 600 MG TAB.ER.12H PO ×2 (08:49→21:21)
--- NOTE | 2023-04-21 10:47 | REH.PTDLY ---
Physical Therapy Daily Note PT Daily Note/Assess Start: 04/18/23 09:49 Freq: Status: Active Protocol: Document 04/21/23 10:00 ELO (Rec: 04/21/23 10:47 ELO [id number]) Physical Therapy Daily Note/Assessment Time In 10:00 Time Out 10:18 Pain Level 0 Pain Level 0 Subjective Pt. denies pain. In bed upon arrival. Now on 3L O2, ready for PT. Therapeutic Exercise Minutes (minutes) 8 Therapeutic Exercise Units 0 Therapeutic Exercise Treatment Pt. instructed in [facility] standing ther ex of HR/TR, january, HS curls, mini squats x 10 reps each. Standing program issued for HEP at this time. Therapeutic Activity Minutes (minutes) 10 Therapeutic Activity Units 1 Therapeutic Activity Comments Pt. bed mobility and sit to stand transfers SBA. Amb 100 feet with RW and 3L O2, CGA. SOB noted but pt. remains at 94% SPO2 after amb. Total Therapy Minutes 18 Total Physical Therapy Units 1 Daily Note Summary SOB noted with Rx this date but SPO2 stats remain at 94 % on 3L O2. Pt. able to increase amb distance and complete standing ther ex with good tolerance. Cont to progress as tolerated.
--- NOTE | 2023-04-21 11:53 | PM.IMPN1 ---
Progress Note: A&P Assessment and Plan (1) COVID-19: Assessment and Plan: On 2 L O2 via NC now. Sig improvement in resp status (2) Hypertension: Assessment and Plan: C/w amlodipine. At goal HCTZ on hold Qualifiers: Hypertension type: primary hypertension Qualified Code(s): I10 - Essential (primary) hypertension (3) Chronic low back pain: Assessment and Plan: On gabapentin. C/w same Qualifiers: Back pain laterality: midline Sciatica presence: without sciatica Qualified Code(s): M54.50 - Low back pain, unspecified; G89.29 - Other chronic pain (4) Asthma with acute exacerbation: Assessment and Plan: Severe persistent asthma at baseline. On trelegy as outpatient. Currently on mucomyst, mucinex, solumedrol and duonebs. No wheezing on exam. Down to 2 L NC. Solumedrol 40 q12 now. Qualifiers: Asthma severity: severe Asthma persistence: persistent Qualified Code(s): J45.51 - Severe persistent asthma with (acute) exacerbation (5) Respiratory failure with hypoxia: Assessment and Plan: Encourage prone positioning. C/w current treatment. Monitor closely. s/p Levaquin for empirical antibacterial coverage against bacterial PNA. Possible d/c tomorrow if remains stable clinically Will likely need home O2 on d/c Qualifiers: Chronicity: acute Qualified Code(s): J96.01 - Acute respiratory failure with hypoxia (6) Depression: Assessment and Plan: C/w Trazodone and Paxil Qualifiers: Depression Type: major depressive disorder Major depression recurrence: recurrent Active/Remission status: in full remission Qualified Code(s): F33.42 - Major depressive disorder, recurrent, in full remission (7) Hypokalemia: Assessment and Plan: Improved. C/w oral potassium (8) JEANNE (acute kidney injury): Assessment and Plan: likely from diuresis. resolved with IV hydration (9) Dehydration determined by examination: Assessment and Plan: Improved with IV hydration. Poor Po intake. Plan C/w close monitoring. If remains stable today - will d/c home tomorrow. Will probably need Home 02 Internal Medicine - PN: Subj Subjective Interval history: Seen and examined. Doing well. Feeling better. Down to 2 L O2 via NC. Not on Vapotherm anymore. Significant and remarkable improved compared to yesterday. Mild ELIZABETH but improved from before. Exam Constitutional Vital Signs - 24 hr 04/20/23 12:21 04/20/23 12:21 04/20/23 12:26 Temperature Pulse Rate 62 Pulse Rate [Monitor Left] 59 L 61 Respiratory Rate 19 18 18 Blood Pressure Blood Pressure [Left Arm] Blood Pressure [Right Arm] Pulse Oximetry Oxygen Delivery Method Vapotherm Oxygen Delivery Flow Rate 40 04/20/23 13:16 04/20/23 12:00 04/20/23 12:30 Temperature Pulse Rate 70 69 66 Pulse Rate [Monitor Left] Respiratory Rate 10 L 22 Blood Pressure Blood Pressure [Left Arm] Blood Pressure [Right Arm] Pulse Oximetry 94 L Oxygen Delivery Method Oxygen Delivery Flow Rate 04/20/23 13:00 04/20/23 13:30 04/20/23 14:00 Temperature Pulse Rate 78 70 78 Pulse Rate [Monitor Left] Respiratory Rate 21 14 18 Blood Pressure Blood Pressure [Left Arm] Blood Pressure [Right Arm] Pulse Oximetry Oxygen Delivery Method Oxygen Delivery Flow Rate 04/20/23 14:25 04/20/23 14:25 04/20/23 14:25 Temperature Pulse Rate 68 Pulse Rate [Monitor Left] Respiratory Rate 15 Blood Pressure 124/63 H 124/63 H Blood Pressure [Left Arm] Blood Pressure [Right Arm] Pulse Oximetry 94 L 92 L Oxygen Delivery Method Oxygen Delivery Flow Rate 04/20/23 14:30 04/20/23 14:51 04/20/23 15:31 Temperature Pulse Rate 65 62 Pulse Rate [Monitor Left] Respiratory Rate 18 Blood Pressure Blood Pressure [Left Arm] Blood Pressure [Right Arm] Pulse Oximetry 93 L 94 L Oxygen Delivery Method Oxygen Delivery Flow Rate 04/20/23 15:44 04/20/23 16:47 04/20/23 16:50 Temperature Pulse Rate 85 Pulse Rate [Monitor Left] 86 Respiratory Rate 17 Blood Pressure Blood Pressure [Left Arm] Blood Pressure [Right Arm] Pulse Oximetry 91 L Oxygen Delivery Method Nasal Cannula Oxygen Delivery Flow Rate 04/20/23 16:48 04/20/23 17:45 04/20/23 18:12 Temperature Pulse Rate 85 77 87 Pulse Rate [Monitor Left] Respiratory Rate 15 Blood Pressure 122/64 H Blood Pressure [Left Arm] Blood Pressure [Right Arm] Pulse Oximetry 93 L 94 L 95 Oxygen Delivery Method Oxygen Delivery Flow Rate 5 04/20/23 20:26 04/20/23 20:48 04/20/23 20:48 Temperature 97 F L Pulse Rate 71 Pulse Rate [Monitor Left] Respiratory Rate 14 18 Blood Pressure 137/90 H Blood Pressure [Left Arm] Blood Pressure [Right Arm] 137/90 H Pulse Oximetry 93 L 93 L 93 L Oxygen Delivery Method Nasal Cannula Nasal Cannula Oxygen Delivery Flow Rate 3 3 3 04/20/23 20:48 04/20/23 20:48 04/20/23 20:51 Temperature Pulse Rate 72 71 Pulse Rate [Monitor Left] Respiratory Rate Blood Pressure 137/90 H Blood Pressure [Left Arm] Blood Pressure [Right Arm] Pulse Oximetry 93 L Oxygen Delivery Method Oxygen Delivery Flow Rate 04/20/23 20:44 04/20/23 19:04 04/20/23 22:22 Temperature Pulse Rate 90 72 Pulse Rate [Monitor Left] Respiratory Rate 20 20 Blood Pressure Blood Pressure [Left Arm] Blood Pressure [Right Arm] Pulse Oximetry 91 L 93 L 92 L Oxygen Delivery Method Nasal Cannula Nasal Cannula Oxygen Delivery Flow Rate 3 4 04/20/23 23:21 04/20/23 23:21 04/20/23 23:29 Temperature Pulse Rate 66 64 Pulse Rate [Monitor Left] 66 Respiratory Rate Blood Pressure Blood Pressure [Left Arm] Blood Pressure [Right Arm] Pulse Oximetry 92 L 92 L Oxygen Delivery Method Oxygen Delivery Flow Rate 04/20/23 19:05 04/20/23 23:48 04/20/23 23:59 Temperature 98.2 F Pulse Rate 72 65 Pulse Rate [Monitor Left] Respiratory Rate 20 Blood Pressure 134/68 H Blood Pressure [Left Arm] Blood Pressure [Right Arm] Pulse Oximetry 93 L 93 L Oxygen Delivery Method Nasal Cannula Oxygen Delivery Flow Rate 3 3 04/20/23 23:59 04/21/23 00:01 04/21/23 02:22 Temperature Pulse Rate 73 72 72 Pulse Rate [Monitor Left] Respiratory Rate Blood Pressure Blood Pressure [Left Arm] Blood Pressure [Right Arm] Pulse Oximetry 90 L Oxygen Delivery Method Oxygen Delivery Flow Rate 3 04/21/23 02:15 04/21/23 03:11 04/21/23 03:11 Temperature Pulse Rate 145 H 70 Pulse Rate [Monitor Left] 66 Respiratory Rate 20 Blood Pressure Blood Pressure [Left Arm] Blood Pressure [Right Arm] Pulse Oximetry 93 L Oxygen Delivery Method Oxygen Delivery Flow Rate 06/16/23 03:15 04/21/23 03:59 04/21/23 03:59 Temperature Pulse Rate 71 70 Pulse Rate [Monitor Left] Respiratory Rate 15 Blood Pressure 143/72 H Blood Pressure [Left Arm] Blood Pressure [Right Arm] Pulse Oximetry 93 L 94 L Oxygen Delivery Method Nasal Cannula Oxygen Delivery Flow Rate 3 3 04/21/23 04:00 04/21/23 03:59 04/21/23 06:28 Temperature Pulse Rate 71 68 68 Pulse Rate [Monitor Left] Respiratory Rate 18 Blood Pressure Blood Pressure [Left Arm] Blood Pressure [Right Arm] Pulse Oximetry 93 L 95 Oxygen Delivery Method Nasal Cannula Oxygen Delivery Flow Rate 3 3 04/21/23 08:00 04/21/23 08:14 04/21/23 10:14 Temperature 98.5 F Pulse Rate 69 67 93 H Pulse Rate [Monitor Left] Respiratory Rate 18 Blood Pressure Blood Pressure [Left Arm] 143/71 H Blood Pressure [Right Arm] Pulse Oximetry 92 L 93 L 94 L Oxygen Delivery Method Nasal Cannula Oxygen Delivery Flow Rate 3 Documenting provider has reviewed patient's vital signs: yes Common normals: no apparent distress General appearance: cooperative Nutritional appearance: obese Orientation/consciousness: Yes awake Other: appears sick and tired HENMT Common normals: normocephalic Eye Common normals: conjunctivae normal and no scleral icterus Chest Common normals: inspection of chest normal Respiratory Common normals: normal respiratory effort and no use of accessory muscles Effort & inspection: able to speak in complete sentences Auscultation: vesicular breath sounds bilateral Cardio Common normals: regular rhythm, S1 normal heart sound and S2 normal heart sound Rate: regular rate Rhythm: regular rhythm GI Common normals: Normal to inspection, nondistended, normoactive bowel sounds present Bladder/kidney exam: catheter in place Extremity Common normals: normal capillary refill and no clubbing, cyanosis or edema Neuro Common normals: oriented x3 Sensorium/orientation: awake and alert Psych Common normals: mental status grossly normal, thought process normal, denies homicidal ideation and denies suicidal ideation Internal Medicine - PN: Obj Da Labs Labs: Laboratory Results - last 24 hr 04/21/23 03:55 WBC 10.5 RBC 4.05 L Hgb 12.3 Hct 36.6 MCV 90.4 MCH 30.4 MCHC 33.6 RDW 11.8 Plt Count 168 MPV 9.8 Neut % (Auto) 90.3 H Lymph % (Auto) 3.3 L [place] % (Auto) 2.8 Eos % (Auto) 0.0 L Baso % (Auto) 0.3 Neut # (Auto) 9.5 H Lymph # (Auto) 0.4 L [place] # (Auto) 0.3 Eos # (Auto) 0.0 Baso # (Auto) 0.0 Abs Immat Gran (auto) 0.35 H Imm/Tot Granulo (auto) 3.3 H Sodium 136 Potassium 4.9 Chloride 100 Carbon Dioxide 27.9 Anion Gap 13.0 BUN 35.0 H Creatinine 0.96 Est GFR ( Amer) >60 Est GFR (Non-Af Amer) 58 L BUN/Creatinine Ratio 36.5 Glucose 280 H Calcium 8.3 L Total Bilirubin 0.2 AST 12 L ALT 82 H Alkaline Phosphatase 83 Total Protein 5.5 L Albumin 2.4 L Globulin 3.1 Albumin/Globulin Ratio 0.8 Urinary Catheter Management Urinary Catheter Management Urethral: Cath placed during this visit: yes Urethral indwelling: No Reason for continuing: acute urinary retention Insertion date: 04/14/23 Insertion time: 11:59
--- NOTE | 2023-04-21 12:46 | CM.NOTE ---
Rounds made with Dr. Ohara. Will likely need oxygen at discharge. Spoke with Diana at admission and no preference as to who is used. Potential plan for discharge tomorrow. Would like to go home with Home Health. Social Service to speak with Diana.
--- NOTE | 2023-04-21 13:03 | SWNOTE1 ---
JAZMIN stopped back in to talk with pt in regards to dc needs. Pt will need HH at discharge and possible oxygen. JAZMIN asked pt if she had a preference on HH companies or oxygen and pt does not. JAZMIN offered star ratings from medicare.gov, pt again stated she does not have a preference. JAZMIN sent referral to [facility].
--- NOTE | 2023-04-21 15:36 | SWNOTE1 ---
[facility] is able to accept.
--- NOTE | 2023-04-21 15:38 | SWNOTE1 ---
[facility] SW left phone numbers and criteria for ordering home oxygen on the floor for nursing.
[2023-04-21] MEDS: SODIUM CHLORIDE 0.9% INHALATION 3 ML NEB IH ×2 (16:25→19:38)
[2023-04-21] MEDS: SENNOSIDES 8.6 MG TABLET PO (19:22)
[2023-04-21] MEDS: METHYLPREDNISOLONE SOD SUCC PF 40 MG/ML VIAL IVP (21:20)
[2023-04-21] MEDS: BACLOFEN 10 MG TABLET 5 MG PO (21:22)
[2023-04-21] MEDS: TRAZODONE HCL 50 MG TABLET PO (21:23)
[2023-04-21] MEDS: PAROXETINE HCL 20 MG TABLET PO (21:23)
[2023-04-22] VITALS (11 sets, daily range): BP systolic 121; BP diastolic 72; PULSE 61–78; RESP 18–24; TEMP 36.6; O2SAT 90–94
[2023-04-22] MEDS: ACETYLCYSTEINE 400 MG/4 ML VIAL 200 MG IH ×3 (03:36→11:31)
[2023-04-22] MEDS: IPRATROPIUM/ALBUTEROL SULFATE 3 ML AMPUL.NEB IH ×3 (03:37→11:31)
[2023-04-22 05:01] LABS: Basophils Percent Auto 0.3 % (0.2-2.0); Eosinophils Percent Auto 0.1 % (0.9-7.0); Hematocrit 37.4 % (36.0-48.0); Hemoglobin 12.4 g/dL (12.0-16.0); Immature Granulocytes Abs Auto 0.41 10^3/uL (0.00-0.03); Immature Granulocytes Pct Auto 4.2 % (0.0-0.5); Lymphocytes Absolute Auto 0.6 10^3/uL (1.2-3.8); Lymphocytes Percent Auto 6.6 % (20.5-60.0); Mean Corpuscular HGB Conc 33.2 g/dL (29.9-35.2); Mean Corpuscular Volume 90.6 fL (81.0-99.0); Mean Platelet Volume 9.7 fL (9.5-13.5); Monocytes Absolute Auto 0.4 10^3/uL (0.3-0.8); Monocytes Percent Auto 3.6 % (1.7-12.0); Neutrophils Absolute Auto 8.3 10^3/uL (1.4-6.5); Neutrophils Percent Auto 85.2 % (43.0-75.0); Platelet Count 154 10^3/uL (150-450); Red Blood Count 4.13 10^6/uL (4.20-5.40); Red Cell Distribution Width 11.9 % (11.0-15.0); White Blood Count 9.8 10^3/uL (4.0-11.0)
[2023-04-22 05:18] LABS: Alanine Aminotransferase 84 U/L (14-59); Albumin Globulin Ratio 0.8; Albumin Level 2.4 g/dL (3.4-5.0); Alkaline Phosphatase 76 U/L (46-116); Anion Gap 10.4; Aspartate Amino Transferase 17 U/L (15-37); BUN Creatinine Ratio 36.7; Bilirubin Total 0.3 mg/dL (0.2-1.0); Calcium 8.4 mg/dL (8.5-10.1); Carbon Dioxide 30.8 mmol/L (21.0-32.0); Chloride 101 mmol/L (98-107); Estimated GFR (African America >60 (>=60); Estimated GFR (Non-African Ame 57 (>=60); Globulin 3.1 g/dL; Glucose 231 mg/dL (74-106); Potassium 5.2 mmol/L (3.5-5.1); Sodium 137 mmol/L (136-145); Total Protein 5.5 g/dL (6.4-8.2)
[2023-04-22] MEDS: HEPARIN SODIUM (PORCINE) 5,000 UNIT/ML VIAL 5000 UNIT SUBQ (05:24)
[2023-04-22] MEDS: NYSTATIN 500,000 UNIT/5 ML ORAL.SUSP 500000 UNIT PO ×2 (05:24→12:02)
[2023-04-22] MEDS: SODIUM CHLORIDE 0.9% INHALATION 3 ML NEB IH ×2 (07:58→11:31)
[2023-04-22] MEDS: METHYLPREDNISOLONE SOD SUCC PF 40 MG/ML VIAL IVP (09:11)
[2023-04-22] MEDS: MONTELUKAST SODIUM 10 MG TABLET PO (09:12)
[2023-04-22] MEDS: AMLODIPINE BESYLATE 5 MG TABLET PO (09:12)
[2023-04-22] MEDS: INSULIN ASPART 300 UNIT/3 ML PEN SUBQ (09:12)
[2023-04-22] MEDS: OMEPRAZOLE 40 MG CAPSULE.DR PO (09:12)
[2023-04-22] MEDS: CETIRIZINE HCL 10 MG TABLET 20 MG PO (09:12)
[2023-04-22] MEDS: INSULIN DETEMIR 300 UNIT/3 ML INSULN.PEN 20 UNIT SUBQ (09:13)
[2023-04-22] MEDS: GABAPENTIN 300 MG CAPSULE PO (09:13)
[2023-04-22] MEDS: GUAIFENESIN 600 MG TAB.ER.12H PO (09:13)
[2023-04-22] MEDS: SOLIFENACIN SUCCINATE 5 MG TABLET PO (09:13)
[2023-04-22] MEDS: MAGNESIUM OXIDE 400 MG TABLET PO (09:13)
[2023-04-22] MEDS: CHOLECALCIFEROL (VITAMIN D3) 25 MCG/1,000 UNITS TABLET PO (09:13)
--- NOTE | 2023-04-22 11:08 | PM.DS1 ---
DS: Providers Provider Date of admission: 04/10/23 23:10 Primary care physician: Shaikh Lev MD Consults: 04/11/23 09:47 Consult to Pulmonology Routine Consulting Provider: Corbin Lopes 04/15/23 14:18 Occupational Therapy Eval and Treat Routine Physical Therapy Eval and Treat Routine 04/19/23 08:35 Consult to Cardiology Routine Consulting Provider: ALICIA TOUSSAINT DS: Diagnosis Discharge Diagnosis (1) COVID-19: Assessment and plan: passed walk test yesterday, does not need home oxygen. Will have close follow up with Pulmonary, steroids for 7 more days, resume home inhalers, use duoneb treatments twice daily at home for 2 days then just as needed. (2) Hypertension: Assessment and plan: stop the hctz, continue amlodipine only Qualifiers: Hypertension type: primary hypertension Qualified Code(s): I10 - Essential (primary) hypertension (3) Chronic low back pain: Assessment and plan: continue home gabapentin Qualifiers: Back pain laterality: midline Sciatica presence: without sciatica Qualified Code(s): M54.50 - Low back pain, unspecified; G89.29 - Other chronic pain (4) Asthma with acute exacerbation: Assessment and plan: completed antibiotics, resume home meds at discharge Qualifiers: Asthma severity: severe Asthma persistence: persistent Qualified Code(s): J45.51 - Severe persistent asthma with (acute) exacerbation (5) Respiratory failure with hypoxia: Qualifiers: Chronicity: acute Qualified Code(s): J96.01 - Acute respiratory failure with hypoxia (6) Depression: Assessment and plan: continue trazodone and paxil Qualifiers: Depression Type: major depressive disorder Major depression recurrence: recurrent Active/Remission status: in full remission Qualified Code(s): F33.42 - Major depressive disorder, recurrent, in full remission (7) Hypokalemia: Assessment and plan: continue klor-con (8) JEANNE (acute kidney injury): Assessment and plan: resolved with IVF (9) Dehydration determined by examination: DS: Summary Status at Discharge Functional status at discharge: independent ambulation Time Spent with Patient Time attestation: Total time spent providing and/or coordinating discharge services: Time spent: greater than 30 minutes Exam Narrative Exam Narrative: General: Patient is alert, and oriented to person, place and time with normal affect, proper hygiene Skin: no visible rashes, or ulcers Head: atraumatic, acephalic Eyes: PERRLA, no nystagmus present, conjunctiva clear, no scleral icterus Ears: normal gross auditory acuity Nose: symmetric, no discharge, no maxillary or frontal sinus tenderness Mouth/Throat: no erythema, exudate, or tonsillar enlargement Neck: no masses palpated, normal thyroid, no JVD or audible carotid bruits Heart: Normal rate and rhythm, no murmurs/rubs/gallops Lungs: mild wheezes throughout, no crackles and normal breath sounds all lung granger Abdomen: Normal audible bowel sounds, no distension, No palpable masses, no organomegaly, no rebound/guarding/ or rigidity Musculoskeletal: muscle atrophy noted, ROM is limited due to being in hospital bed, no swelling bilateral lower extremities Vascular: Normal carotid, radial, femoral, posterior tibial, and dorsalis pedis pulses Lymph: no supraclavicular, axillary, or anterior/posterior cervical adenopathy Neuro: CN II-X grossly intact, normal sensation upper and lower extremities Constitutional Vital Signs - 24 hr 04/21/23 12:00 04/21/23 12:01 04/21/23 15:09 Temperature 98.6 F Pulse Rate 73 71 75 Respiratory Rate 18 Blood Pressure [Right Arm] 129/73 H Pulse Oximetry 93 L 96 Oxygen Delivery Method Nasal Cannula Oxygen Delivery Flow Rate 2 04/21/23 16:02 04/21/23 16:07 04/21/23 19:39 Temperature Pulse Rate 76 Respiratory Rate Blood Pressure [Right Arm] Pulse Oximetry 91 L 93 L Oxygen Delivery Method Room Air Room Air Oxygen Delivery Flow Rate 04/21/23 19:54 04/21/23 19:39 04/21/23 19:59 Temperature Pulse Rate 75 74 72 Respiratory Rate 22 20 Blood Pressure [Right Arm] Pulse Oximetry 94 L 93 L Oxygen Delivery Method Room Air Room Air Oxygen Delivery Flow Rate 04/21/23 20:05 04/21/23 22:05 04/21/23 23:04 Temperature 98.1 F Pulse Rate 73 63 66 Respiratory Rate 20 16 Blood Pressure [Right Arm] 95/52 L Pulse Oximetry 90 L 90 L Oxygen Delivery Method Room Air Room Air Oxygen Delivery Flow Rate 04/21/23 23:21 04/22/23 00:02 04/22/23 03:52 Temperature Pulse Rate 72 77 67 Respiratory Rate 22 22 Blood Pressure [Right Arm] Pulse Oximetry 90 L 92 L Oxygen Delivery Method Room Air Room Air Oxygen Delivery Flow Rate 04/22/23 03:36 04/22/23 02:00 04/22/23 04:00 Temperature Pulse Rate 63 69 66 Respiratory Rate 24 Blood Pressure [Right Arm] Pulse Oximetry 90 L Oxygen Delivery Method Room Air Oxygen Delivery Flow Rate 04/22/23 05:28 04/22/23 06:09 04/22/23 07:56 Temperature 97.9 F Pulse Rate 65 61 70 Respiratory Rate 20 Blood Pressure [Right Arm] 121/72 H Pulse Oximetry Oxygen Delivery Method Room Air Oxygen Delivery Flow Rate 04/22/23 08:00 04/22/23 09:59 Temperature Pulse Rate 70 78 Respiratory Rate 20 Blood Pressure [Right Arm] Pulse Oximetry 94 L Oxygen Delivery Method Room Air Oxygen Delivery Flow Rate DS: Data Data Completed and Pending Labs on day of discharge: Labs from last 24 hours 04/22/23 04:35 WBC 9.8 RBC 4.13 L Hgb 12.4 Hct 37.4 MCV 90.6 MCH 30.0 MCHC 33.2 RDW 11.9 Plt Count 154 MPV 9.7 Neut % (Auto) 85.2 H Lymph % (Auto) 6.6 L [place] % (Auto) 3.6 Eos % (Auto) 0.1 L Baso % (Auto) 0.3 Neut # (Auto) 8.3 H Lymph # (Auto) 0.6 L [place] # (Auto) 0.4 Eos # (Auto) 0.0 Baso # (Auto) 0.0 Abs Immat Gran (auto) 0.41 H Imm/Tot Granulo (auto) 4.2 H Sodium 137 Potassium 5.2 H Chloride 101 Carbon Dioxide 30.8 Anion Gap 10.4 BUN 36.0 H Creatinine 0.98 Est GFR ( Amer) >60 Est GFR (Non-Af Amer) 57 L BUN/Creatinine Ratio 36.7 Glucose 231 H Calcium 8.4 L Total Bilirubin 0.3 AST 17 ALT 84 H Alkaline Phosphatase 76 Total Protein 5.5 L Albumin 2.4 L Globulin 3.1 Albumin/Globulin Ratio 0.8 Discharge Plan Discharge Disposition: Home Health Service Condition: Fair Discharge Medications: New nystatin 100,000 unit/mL Suspension 500,000 unit PO QID Qty: 30 0RF prednisone 10 mg tablet 5 mg PO BID 7 Days Qty: 7 0RF Continued trazodone 50 mg tablet 50 mg PO .qhs amlodipine 5 mg tablet 5 mg PO DAILY alendronate 35 mg tablet 35 mg PO .ONCE A WEEK Patient Comments: TAKES ON THURSDAYS Rx Instructions: orally every ; magnesium oxide 400 mg (241.3 mg magnesium) tablet 400 mg PO DAILY Rx Instructions: WITH FOOD benzonatate 100 mg capsule 100 mg PO .q12 PRN (Reason: cough) paroxetine HCl 20 mg tablet 20 mg PO .qhs gabapentin 300 mg capsule 300 mg PO BID omeprazole 20 mg capsule,delayed release(DR/EC) 20 mg PO DAILY montelukast 10 mg tablet 10 mg PO DAILY albuterol sulfate 90 mcg/actuation HFA aerosol inhaler 2 puff INHALATION Q4H PRN (Reason: shortness of breath or wheezing) solifenacin 5 mg tablet 5 mg PO DAILY cholecalciferol (vitamin D3) 25 mcg (1,000 unit) tablet 25 mcg PO DAILY potassium chloride 20 mEq tablet extended release 20 meq PO .TWICE A DAY baclofen 5 mg tablet 5 mg PO .THREE TIMES DAILY Trelegy Ellipta 200-62.5-25 mcg blister with device 1 inh INHALATION Q24H levocetirizine 5 mg tablet 5 mg PO QPM Discontinued hydrochlorothiazide 25 mg tablet 25 mg PO DAILY Activity: increase activity as tolerated and return to work once cleared by your PCP/specialist Diet: advance to your usual diet [employer]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 Forms: Portal Instructions Referrals: Corbin Lopes DO [Physician] - Follow Up Appointments: Cardiology ([facility] 1 week, pulmonary Dr. Lopes 1 week, pcp 1 week
--- NOTE | 2023-04-25 15:45 | CM.DCFOLLOWU ---
Person spoke with:patient How are you feeling? tired, but overall well How is your pain? no pain Did you understand your discharge instructions? yes Do you have any questions about your discharge instructions? no Were you given any prescriptions at discharge? yes Were you able to get your prescriptions filled? yes Do you understand how to take your medications as ordered? yes Do you have any questions about your follow up appointment and do you plan to keep your follow up appointment? no questions and kept follow up appointments Is there anything else that you would like to discuss? no Questions/Comments/Concerns/Other:
== END 2023-04-22 12:05 | disposition home health service (06) | DRG 177 ==
LOC: ER 21:47 → MS 23:25 → ICU 04-17 06:25 → MS 04-21 13:28
PROVIDERS: Family Medicine; Internal Medicine; Admitting Provider Family Medicine; Emergency Provider Emergency Medicine; PCP Internal Medicine; Visit Provider Internal Medicine
DX: U07.1 COVID-19 (principal); J12.82 Pneumonia due to coronavirus disease 2019; J96.01 Acute respiratory failure with hypoxia; J44.1 Chronic obstructive pulmonary disease with (acute) exacerbation; J45.51 Severe persistent asthma with (acute) exacerbation; N17.9 Acute kidney failure, unspecified; J44.0 Chronic obstructive pulmonary disease with (acute) lower respiratory infection; B37.0 Candidal stomatitis; M54.50 Low back pain, unspecified; G89.29 Other chronic pain; F33.42 Major depressive disorder, recurrent, in full remission; E87.6 Hypokalemia; E86.0 Dehydration; R73.9 Hyperglycemia, unspecified; K21.9 Gastro-esophageal reflux disease without esophagitis; I10 Essential (primary) hypertension; E66.01 Morbid (severe) obesity due to excess calories; D69.6 Thrombocytopenia, unspecified; T38.0X5A Adverse effect of glucocorticoids and synthetic analogues, initial encounter; I25.10 Atherosclerotic heart disease of native coronary artery without angina pectoris; Z68.37 Body mass index [BMI] 37.0-37.9, adult; R33.9 Retention of urine, unspecified; I27.20 Pulmonary hypertension, unspecified; D72.829 Elevated white blood cell count, unspecified; Z79.51 Long term (current) use of inhaled steroids; Z79.899 Other long term (current) drug therapy
CPT/HCPCS: 36415; 36600; 51702; 71045; 71275; 80048; 80053; 82805; 83735; 83880; 84484; 85007; 85025; 87040; 87150; 87186; 87635; 87811; 93005; 93306; 94640; 94660; 94667; 94668; 94761; 94762; 94799; 96365; 96366; 96367; 96368; 96372; 96375; 96376; 97110; 97161; 97165; 97530; 97535; 99285; J2920; J2930; J3480; Q9967; U0003

== ENCOUNTER 2023-05-23 07:18 | Outpatient (OUT) | payer OTHER, SELFPAY ==
--- NOTE | 2023-05-23 09:48 | CA_ITS ---
Patient: JHONATAN MONTOYA Exam Date: 05/23/2023 : 1955 Gender:F Ordering : DR Nasim Church M.D. Admission #: [id number] Family : Order #: [id number] CLICK HERE TO VIEW EXAM ECHOCARDIOGRAM REPORT PROCEDURE: CA ECHO DOPPLER COMPLETE INDICATIONS: Shortness of breath COMPARISON: None. DESCRIPTION: COMPLETE ECHOCARDIOGRAM Real-time transthoracic echocardiography with 2D, M-mode, spectral and color flow Doppler performed. QUALITY: Technical quality was good. LEFT VENTRICLE: Normal chamber size. Normal left ventricular wall thickness. Systolic function is at the lower limits of normal. LV EF: Lower limits of normal left ventricular ejection fraction, (50-55%). DIASTOLIC: Grade I diastolic dysfunction. ATRIAL SEPTUM: LEFT ATRIUM: Normal chamber size. RIGHT ATRIUM: Normal chamber size. RIGHT VENTRICLE: Normal chamber size. Normal right ventricular systolic function. TRICUSPID VALVE: Normal mobility and thickness. No stenosis with trivial regurgitation. Mild pulmonary hypertension. RVSP 42 mmHg MITRAL VALVE: Normal mobility and thickness. No evidence of mitral valve stenosis. There is no mitral annular calcification. Trivial mitral regurgitation. AORTIC VALVE: Normal trileaflet appearance. No visible sclerosis. Normal leaflet mobility. No evidence of aortic valve stenosis. Trivial aortic regurgitation. AORTIC ROOT: Normal diameter and appearance. PULMONIC VALVE: Normal thickness and mobility. No stenosis. No regurgitation. PERICARDIUM: Trivial evidence of pericardial effusion. IVC: Collapses with inspirations. Normal size. PLEURA: CONCLUSION: 1. Left ventricular systolic function is at the lower limits of normal. LVEF is 50 to 55%. 2. Normal right ventricular size and systolic function. 3. Mild diastolic dysfunction. 4. No significant valvular dysfunction. 5. Mildly elevated right-sided pressures. 6. Trivial pericardial effusion. Adult Echocardiography Procedure Report Left Ventricle LVEDD (3.7 - 5.6 cm): 5.64 cm LVESD (2.2 - 4.0 cm): 4.16 cm LVIVS thickness (0.6 - 1.2 cm): 0.90 cm LVPW thickness (0.5 - 1.0 cm): 0.88 cm e': 0.06 m/s E - e': 12.21 LVOT Max Gradient: 7.86 mm[Hg] LVOT Area (cm2): 1.40 m/s Peak Velocity (LVOT): 1.40 m/s Mean Velocity (LVOT): 0.98 m/s LVOT Diameter 1.77 cm Left Ventricular Ejection Fraction: 52.27 % Left Atrium LA Volume Index (2D A2C): 27.15 ml/m2 Left Atrium Systolic Dimension: 3.31 cm Mitral Valve MV E to A Ratio: 0.91, 0.88 Mitral Valve A-Wave Peak Velocity: 0.88 m/s Mitral Valve E-Wave Peak Velocity: 0.79 m/s Right Ventricle RV Internal Diastolic Dimension: 3.20 cm Aorta AO Root Diam: 2.94 cm Ascending Ao Diam: 2.74 cm Aortic Valve AoV Area (Peak Rafita): 1.96 cm2, 1.96 cm2 AoV Area (VTI): 2.10 cm2, 2.10 cm2 Peak Velocity(Antegrade Flow): 1.75 m/s Peak Gradient(Antegrade Flow): 12.28 mm[Hg] Mean Velocity(Antegrade Flow): 1.18 m/s Mean Gradient(Antegrade Flow): 6.40 mm[Hg] Velocity Time Integral: 36.69 cm Tricuspid Valve Peak Velocity (Regurgitant Flow): 2.10 m/s, 2.89 m/s, 2.21 m/s Pulmonic Valve Mean Gradient: 3.60 mm[Hg], 3.88 mm[Hg] Mean Velocity: 0.88 m/s, 0.92 m/s Peak Velocity: 1.34 m/s Peak Gradient: 6.56 mm[Hg], 7.94 mm[Hg] Right Atrium Right Atrium Systolic Pressure: 42.10 ml, 42.10 ml Dictated by: Jim Limon M.D. on 05/25/2023 at 18:20 Approved by: Jim Limon M.D. on 05/25/2023 at 18:28
== END 2023-05-23 07:19 | disposition home or self-care (01) ==
LOC: CARD 07:19
PROVIDERS: PCP Internal Medicine; Visit Provider Internal Medicine Interventional Cardiology
DX: R06.02 Shortness of breath (principal)
CPT/HCPCS: 93306

== ENCOUNTER 2023-06-30 09:13 | Outpatient (OUT) | payer OTHER, SELFPAY ==
[2023-06-30 09:36] LABS: Basophils Percent Auto 0.4 % (0.2-2.0); Eosinophils Absolute Auto 0.2 10^3/uL (0.0-0.7); Eosinophils Percent Auto 3.5 % (0.9-7.0); Hematocrit 39.8 % (36.0-48.0); Hemoglobin 13.3 g/dL (12.0-16.0); Immature Granulocytes Abs Auto 0.03 10^3/uL (0.00-0.03); Immature Granulocytes Pct Auto 0.6 % (0.0-0.5); Lymphocytes Absolute Auto 1.5 10^3/uL (1.2-3.8); Lymphocytes Percent Auto 27.8 % (20.5-60.0); Mean Corpuscular HGB Conc 33.4 g/dL (29.9-35.2); Mean Corpuscular Hemoglobin 30.8 pg (26.7-34.0); Mean Corpuscular Volume 92.1 fL (81.0-99.0); Mean Platelet Volume 8.7 fL (9.5-13.5); Monocytes Absolute Auto 0.4 10^3/uL (0.3-0.8); Monocytes Percent Auto 7.5 % (1.7-12.0); Neutrophils Absolute Auto 3.3 10^3/uL (1.4-6.5); Neutrophils Percent Auto 60.2 % (43.0-75.0); Platelet Count 257 10^3/uL (150-450); Red Blood Count 4.32 10^6/uL (4.20-5.40); Red Cell Distribution Width 12.9 % (11.0-15.0); White Blood Count 5.4 10^3/uL (4.0-11.0)
--- NOTE | 2023-06-30 09:39 | XR_ITS ---
[address] [address] Patient Name: JHONATAN MONTOYA MRN: [facility]:[id number] date: 1955 Sex: F Assigned Patient Location: LAB Current Patient Location: LAB Accession/Order Number: [id number] Exam Date: 06/30/2023 09:42 Report Date: 06/30/2023 09:57 At the request of: SHAIKH LUCITA Procedure: XR lumbar spine 2-3V EXAM: XR lumbar spine 2-3V HISTORY: Low Back Pain M54.50 COMPARISON: None. TECHNIQUE: 3 views Findings/impression: Mild dextroconvex curvature of the lumbar spine. Posterior fusion of L5-S1 with disc spacers. Intact hardware. Maintained vertebral body heights. Multilevel endplate degenerative changes and disc disease as well as facet arthropathy of L3-S1. No acute fracture. Electronically authenticated by: MEGHAN ALVARADO Date: 06/30/2023 09:57
[2023-06-30 10:28] LABS: Percent Iron Saturation 29.5 %
[2023-06-30 10:40] LABS: Estimated Average Glucose 108 mg/dL; Glycohemoglobin A1C 5.4 % (4.5-6.2)
[2023-06-30 10:55] LABS: Alanine Aminotransferase 11 U/L (14-59); Alkaline Phosphatase 86 U/L (46-116); Anion Gap 13.3; Aspartate Amino Transferase 13 U/L (15-37); BUN Creatinine Ratio 8.8; Bilirubin Total 0.3 mg/dL (0.2-1.0); Calcium 8.1 mg/dL (8.5-10.1); Carbon Dioxide 25.4 mmol/L (21.0-32.0); Chloride 107 mmol/L (98-107); Estimated GFR (African America >60 (>=60); Estimated GFR (Non-African Ame 54 (>=60); Glucose 106 mg/dL (74-106); Potassium 3.7 mmol/L (3.5-5.1); Sodium 142 mmol/L (136-145)
[2023-06-30 10:56] LABS: Albumin Level 3.5 g/dL (3.4-5.0); Globulin 3.6 g/dL; Total Protein 7.1 g/dL (6.4-8.2)
[2023-07-01 06:09] LABS: Transferrin 214 mg/dL (192-364)
== END 2023-06-30 09:14 | disposition home or self-care (01) ==
LOC: LAB 09:16
PROVIDERS: PCP Internal Medicine; Visit Provider Internal Medicine
DX: G25.81 Restless legs syndrome (principal); Z85.038 Personal history of other malignant neoplasm of large intestine; R73.9 Hyperglycemia, unspecified; I50.32 Chronic diastolic (congestive) heart failure; M54.50 Low back pain, unspecified
CPT/HCPCS: 36415; 72100; 80053; 82378; 82728; 83036; 83540; 83550; 84466; 85025

== ENCOUNTER 2023-07-04 07:43 | Outpatient (OUT) | payer OTHER, SELFPAY ==
--- NOTE | 2023-07-04 08:00 | CT_ITS ---
[address] [address] Patient Name: JHONATAN MONTOYA MRN: [id number] date: 1955 Sex: F Assigned Patient Location: CT Current Patient Location: CT Accession/Order Number: [id number] Exam Date: 07/04/2023 07:55 Report Date: 07/04/2023 08:46 At the request of: BO MCCLAIN Procedure: CT chest wo con EXAMINATION: CT chest wo con HISTORY: Abnormal Finding Of Lung Field R91.8 ; shortness of breath, wheezing, follow-up endobronchial filling and collapse COMPARISON: CT chest 04/18/2023 TECHNIQUE: Multi-planar CT images were obtained without and/or with IV contrast as indicated by examination type. Axial, Coronal, and Sagittal images. Dose reduction techniques were achieved by using automated exposure control and/or adjustment of mA and/or kV according to patient size and/or use of iterative reconstruction technique. FINDINGS: LUNGS: A few sub-5 mm nodules scattered within the right lung. Reexpansion of previously seen areas of collapse/consolidation within right lower lobe, left upper lobe, and lingula. PLEURA: No mass, effusion, or pneumothorax. VASCULATURE: No abnormality. RENAN: No mass or adenopathy. MEDIASTINUM: No mass or adenopathy. CARDIAC: No enlargement, pericardial thickening, or significant calcification. AORTA: No aneurysm or dissection. CHEST WALL: No mass or axillary adenopathy. BONES: No bone lesion or fracture. LIMITED ABDOMEN: No suspicious findings Limited images of the upper abdomen. OTHER: Negative. CT/CT chest wo con IMPRESSION: 1. Clearing of previously seen bilateral pulmonary infiltrates/consolidation. No mucous plugging. 2. No acute infiltrates. 3. A few tiny nodules scattered within the lungs; nonspecific but not overtly suspicious. Follow-up imaging in 6 months is recommended to document stability. Electronically authenticated by: STEPH GRANADOS Date: 07/04/2023 08:46
== END 2023-07-04 07:44 | disposition home or self-care (01) ==
LOC: CT 07:43
PROVIDERS: PCP Internal Medicine; Visit Provider Internal Medicine
DX: R91.8 Other nonspecific abnormal finding of lung field (principal)
CPT/HCPCS: 71250

== ENCOUNTER 2023-08-07 15:21 | Outpatient (OUT) | payer OTHER, SELFPAY ==
[2023-08-07 16:17] LABS: Hematocrit 40.1 % (36.0-48.0); Hemoglobin 13.2 g/dL (12.0-16.0); Mean Corpuscular HGB Conc 32.9 g/dL (29.9-35.2); Mean Corpuscular Hemoglobin 30.8 pg (26.7-34.0); Mean Corpuscular Volume 93.5 fL (81.0-99.0); Mean Platelet Volume 9.9 fL (9.5-13.5); Platelet Count 264 10^3/uL (150-450); Red Blood Count 4.29 10^6/uL (4.20-5.40); Red Cell Distribution Width 11.6 % (11.0-15.0); White Blood Count 8.7 10^3/uL (4.0-11.0)
[2023-08-07 16:19] LABS: Bilirubin Urine NEGATIVE (NEGATIVE); Blood Urine NEGATIVE (NEGATIVE); Clarity Urine CLEAR (CLEAR); Color Urine LT. YELLOW (YELLOW); Glucose Urine UA NEGATIVE (NEGATIVE); Ketones Urine NEGATIVE (NEGATIVE); Leukocyte Esterase Urine NEGATIVE (NEGATIVE); Nitrite Urine NEGATIVE (NEGATIVE); Protein Urine NEGATIVE (NEG/TRACE); Specific Gravity Urine <=1.005 (1.005-1.025); Urobilinogen Urine 0.2 EU/dL (0.2-1.0)
[2023-08-07 16:21] LABS: Creatinine Urine Random 41.13 mg/dL (20.00-300.00); Protein Creatinine Ratio Urine 0.15; Total Protein Urine Random <6.0 mg/dL (<=11.9)
[2023-08-07 16:26] LABS: Albumin Level 3.2 g/dL (3.4-5.0); Anion Gap 14.2; BUN Creatinine Ratio 8.7; Calcium 8.1 mg/dL (8.5-10.1); Carbon Dioxide 24.2 mmol/L (21.0-32.0); Chloride 106 mmol/L (98-107); Estimated GFR (African America >60 (>=60); Estimated GFR (Non-African Ame 53 (>=60); Glucose 99 mg/dL (74-106); Magnesium 1.8 mg/dL (1.8-2.4); Phosphorus 2.6 mg/dL (2.6-4.7); Potassium 3.4 mmol/L (3.5-5.1); Sodium 141 mmol/L (136-145); Uric Acid 5.4 mg/dL (2.6-6.0)
[2023-08-07 16:27] LABS: Bacteria Urine NONE SEEN #/HPF (NONE SEEN); Cast Seen? NONE SEEN #/LPF (NONE SEEN); Crystals Seen? None Seen #/HPF (None Seen); Mucus Urine NONE SEEN (NONE SEEN); RBC Urine NONE SEEN #/HPF (0-2); Squamous Epithelial Cell Urine RARE #/LPF (NONE/RARE); WBC Urine NONE SEEN #/HPF (NONE SEEN)
[2023-08-09 11:09] LABS: PTH, Intact 81 pg/mL (15-65)
== END 2023-08-07 15:22 | disposition home or self-care (01) ==
LOC: LAB 15:25
PROVIDERS: PCP Internal Medicine; Visit Provider Internal Medicine
DX: I12.9 Hypertensive chronic kidney disease with stage 1 through stage 4 chronic kidney disease, or unspecified chronic kidney disease (principal); N18.30 Chronic kidney disease, stage 3 unspecified; N25.81 Secondary hyperparathyroidism of renal origin; E79.0 Hyperuricemia without signs of inflammatory arthritis and tophaceous disease; E87.6 Hypokalemia; E83.42 Hypomagnesemia
CPT/HCPCS: 36415; 80069; 81001; 82306; 82570; 83735; 83970; 84156; 84550; 85027

== ENCOUNTER 2023-08-21 14:11 | Outpatient (OUT) | payer OTHER, SELFPAY ==
--- NOTE | 2023-08-21 15:38 | PM.CN ---
Consult Note: HPI Data of Consult Patient: new to practice Consult date: 08/21/23 Requesting Physician: Jayshree Vargas MD Primary Care Provider: Shaikh Lev MD Consult Narrative Reason for consult: low back pain, bilateral lower extremity pain Narrative: 68yof who presents for evaluation. worsening low back pain with radiation bilaterally, ongoing for 20 years. had l5-s1 fusion previously. states that she needs a right hip replacement soon, as well. primarily utilizes tylenol, which provides minimal relief. has engaged in provider directed home exercise course for >6 weeks, with limited benefit. no recent advanced imaging available for review. denies adverse med side effects. cc:: CC: Jayshree Vargas MD Review of Systems ROS Status of ROS 10 or more systems reviewed and unremarkable except as noted in history and below PFSH PFSH Medical History Acute infective exacerbation of chronic obstructive airway disease ?J44.1 - Chronic obstructive pulmonary disease with (acute) exacerbation (ICD-10) Asthma ?J45.909 - Unspecified asthma, uncomplicated (ICD-10) Chronic low back pain ?M54.50 - Low back pain, unspecified (ICD-10) ?G89.29 - Other chronic pain (ICD-10) Chronic obstructive pulmonary disease ?J44.9 - Chronic obstructive pulmonary disease, unspecified (ICD-10) Depression ?F32.A - Depression, unspecified (ICD-10) Heart murmur ?R01.1 - Cardiac murmur, unspecified (ICD-10) Hypertension ?I10 - Essential (primary) hypertension (ICD-10) Hypoxia ?R09.02 - Hypoxemia (ICD-10) Social History Smoking status: Never smoker Do you think of yourself as: straight/heterosexual Gender Identity: female Meds Home Medications and Allergies Home Medications Medication Instructions Recorded Confirmed Type albuterol sulfate 90 mcg/actuation 2 puff inhalation Q4H PRN 04/10/23 04/11/23 History aerosol inhaler shortness of breath or wheezing fluticasone fur. 200 mcg-umeclid 1 inh inhalation Q24H COPD 04/10/23 08/21/23 History 62.5 mcg-vilant 25 mcg inhalat.powder (Trelegy Ellipta) magnesium oxide 400 mg (241.3 mg 400 mg PO DAILY 04/10/23 08/21/23 History magnesium) tablet omeprazole 20 mg capsule,delayed 20 mg PO DAILY 04/10/23 08/21/23 History release paroxetine HCl 20 mg tablet 20 mg PO .qhs 04/10/23 08/21/23 History solifenacin 5 mg tablet 5 mg PO DAILY 04/10/23 08/21/23 History trazodone 50 mg tablet 50 mg PO .qhs 04/10/23 08/21/23 History ipratropium 0.5 mg-albuterol 3 mg 3 ml inhalation Q6H PRN shortness 04/22/23 08/21/23 Rx (2.5 mg base)/3 mL nebulization of breath or wheezing #90 mL soln acetaminophen 300 mg-codeine 30 mg 1 tab PO DAILY 08/21/23 08/21/23 History tablet losartan 50 mg tablet (Cozaar) 50 mg PO DAILY 08/21/23 08/21/23 History polysaccharide iron complex 180 mg 180 mg PO DAILY 08/21/23 08/21/23 History iron capsule (Pro Fe) Allergies Allergy/AdvReac Type Severity Reaction Status Date / Time No Known Drug Allergies Allergy Verified 08/21/23 15:21 Exam Narrative Exam Narrative: Psych-alert and oriented x 3. Attentive and appropriate, constitutionally normal, displays normal mood and affect per situation. There are no obvious deficits in memory, reasoning, or intellect.? Skin-no obvious rashes, bruising, erythema noted to the patient's area of pain.? Extremities- extremities are warm with minimal edema and palpable pulses. Lumbar-tenderness to palpation noted in the lumbar spine and paraspinal musculature. Pain is elicited with flexion, extension, and lateral rotation of the lumbar spine. Range of motion is diminished with these motions. Facet loading maneuvers are positive. Strength-noted to be unremarkable with the exception of decreased strength rated at 4 out of 5 in bilateral quadriceps femoris, anterior tibialis. Sensory-no notable sensory deficits in the bilateral lower extremities to touch or pinprick in all dermatomal distributions with the exception to decreased sensation to the bilateral L4, 5 dermatomal distribution Coordination remains intact.? Gait remains non-antalgic. Assessment and Plan Assessment and Plan (1) Lumbar stenosis with neurogenic claudication: (2) Lumbar postlaminectomy syndrome: Plan 68yof who presents for evaluation. failed conservative measures, as noted. given symptoms and exam findings, would like to update lumbar mri without contrast. she is in agreement. medications reviewed. will have her trial T#3 tid prn. will obtain uds today. follow up after imaging
== END 2023-08-21 14:12 | disposition home or self-care (01) ==
LOC: PM 14:11
PROVIDERS: PCP Internal Medicine; Visit Provider Anesthesiology
DX: M96.1 Postlaminectomy syndrome, not elsewhere classified (principal); M48.062 Spinal stenosis, lumbar region with neurogenic claudication
CPT/HCPCS: G0463

== ENCOUNTER 2023-08-25 08:38 | Outpatient (OUT) | payer OTHER, SELFPAY ==
--- NOTE | 2023-08-25 08:43 | XR_ITS ---
The [place] [id number] Patient Name: JHONATAN MONTOYA MRN: [id number] date: 1955 Sex: F Assigned Patient Location: [facility] Current Patient Location: [facility] Accession/Order Number: [id number] Exam Date: 08/25/2023 08:50 Report Date: 08/25/2023 15:13 At the request of: COLLIN GIEDRAITIS Procedure: XR sacrum coccyx min 2V STUDY: XR sacrum coccyx min 2V, [id number] HISTORY: Lumbosacral Pain COMPARISON: Lumbar spine x-rays 06/30/2023. FINDINGS/IMPRESSION: No acute fracture or suspicious osseous lesion. Alignment across the sacrum and coccyx is within normal limits. Moderate degenerative changes at the sacrococcygeal junction. Severe osteoarthritis of the right hip. Left hip arthroplasty in lumbosacral fusion hardware present. Electronically authenticated by: VIC MANZANARES Date: 08/25/2023 15:13
== END 2023-08-25 08:39 | disposition home or self-care (01) ==
LOC: RAD 08:39
PROVIDERS: PCP Internal Medicine; Visit Provider Anesthesiology
DX: M54.50 Low back pain, unspecified (principal)
CPT/HCPCS: 72220

== ENCOUNTER 2023-09-05 07:12 | Outpatient (OUT) | payer OTHER, SELFPAY ==
--- NOTE | 2023-09-05 | MR_ITS ---
The [address] [address] Patient Name: JHONATAN MONTOYA MRN: [facility]:[id number] date: 1955 Sex: F Assigned Patient Location: MRI Current Patient Location: MRI Accession/Order Number: [id number] Exam Date: 09/05/2023 07:30 Report Date: 09/05/2023 09:14 At the request of: COLLIN WILLSON Procedure: MR lumbar spine wo con EXAMINATION: MR lumbar spine wo con HISTORY: lumbar stenosis with claudication COMPARISON: No relevant comparison available. TECHNIQUE: A variety of imaging planes and parameters were utilized for visualization of suspected pathology. FINDINGS: For the purposes of numbering, sagittal T2 image # 9 extends from the T11 vertebral body superiorly to the S2-S3 level inferiorly. PARASPINAL AREA: Normal with no visible mass. BONES: Dextrocurvature. Moderate diffuse degenerative spondylosis. Posterior decompression L4-L5. Bilateral transpedicular fusion L5-S1 with susceptibility artifact . Areas of signal abnormality in the vertebral bodies, hemangiomas are favored the largest in the L2 and L4 vertebral bodies CORD/CAUDA EQUINA: Normal caliber, contour, and signal intensity. 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 L1-L2: Disc space narrowing and disc desiccation. Mild diffuse disc/osteophyte complex segmental flavum hypertrophy and facet osteoarthropathy. Mild to moderate narrowing of the central canal. No right foraminal stenosis, mild left foraminal stenosis.. L2-L3: Disc desiccation. Left foraminal disc protrusion. No central or right foraminal stenosis. Mild narrowing of the left neural foramen. L3-L4: Disc desiccation. Left foraminal and lateral disc protrusion. Ligamentum flavum hypertrophy and facet osteoarthropathy. Mild trefoil narrowing of the central canal. No foraminal stenosis. L4-L5: Disc desiccation. No disc bulge or herniation. No central or foraminal stenosis L5-S1: Intervertebral metallic spacer. Bilateral transpedicular fusion. Mild diffuse posterior osteophyte formation. No central or foraminal stenosis MR/MR lumbar spine wo con IMPRESSION: Degenerative changes resulting in mild left foraminal stenosis at L1-L2 and L2-L3 Electronically authenticated by: BRITTANY VANESSA Date: 09/05/2023 09:14
== END 2023-09-05 07:13 | disposition home or self-care (01) ==
LOC: MRI 07:13
PROVIDERS: PCP Internal Medicine; Visit Provider Otolaryngology
DX: M48.062 Spinal stenosis, lumbar region with neurogenic claudication (principal)
CPT/HCPCS: 72148

== ENCOUNTER 2023-09-14 07:42 | Outpatient (OUT) | payer OTHER, SELFPAY ==
--- NOTE | 2023-09-14 08:09 | PM.CN ---
Consult Note: HPI Data of Consult Patient: known to practice within the last 3 years Requesting Physician: Violet Saucedo NP Primary Care Provider: Shaikh Lev MD Consult Narrative Reason for consult: f/u Narrative: Diana Champion a pleasant 68 year old female presents for evaluation and management of low back pain. Today rating pain 4/10 in low back and bilateral hips. 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 Patient here today to discuss MRI and xray results. Was previously started on tylenol #3 which is providing mild to moderate relief. cc:: CC: Violet Saucedo NP Review of Systems ROS Status of ROS 10 or more systems reviewed and unremarkable except as noted in history and below Musculoskeletal Reports: back pain and joint pain PFSH PFSH Medical History Acute infective exacerbation of chronic obstructive airway disease ?J44.1 - Chronic obstructive pulmonary disease with (acute) exacerbation (ICD-10) Asthma ?J45.909 - Unspecified asthma, uncomplicated (ICD-10) Chronic low back pain ?M54.50 - Low back pain, unspecified (ICD-10) ?G89.29 - Other chronic pain (ICD-10) Chronic obstructive pulmonary disease ?J44.9 - Chronic obstructive pulmonary disease, unspecified (ICD-10) Depression ?F32.A - Depression, unspecified (ICD-10) Heart murmur ?R01.1 - Cardiac murmur, unspecified (ICD-10) Hypertension ?I10 - Essential (primary) hypertension (ICD-10) Hypoxia ?R09.02 - Hypoxemia (ICD-10) Social History Smoking status: Never smoker Do you think of yourself as: straight/heterosexual Gender Identity: female Meds Home Medications and Allergies Home Medications Medication Instructions Recorded Confirmed Type albuterol sulfate 90 mcg/actuation 2 puff inhalation Q4H PRN 04/10/23 04/11/23 History aerosol inhaler shortness of breath or wheezing fluticasone fur. 200 mcg-umeclid 1 inh inhalation Q24H COPD 04/10/23 08/21/23 History 62.5 mcg-vilant 25 mcg inhalat.powder (Trelegy Ellipta) magnesium oxide 400 mg (241.3 mg 400 mg PO DAILY 04/10/23 08/21/23 History magnesium) tablet omeprazole 20 mg capsule,delayed 20 mg PO DAILY 04/10/23 08/21/23 History release paroxetine HCl 20 mg tablet 20 mg PO .qhs 04/10/23 08/21/23 History solifenacin 5 mg tablet 5 mg PO DAILY 04/10/23 08/21/23 History trazodone 50 mg tablet 50 mg PO .qhs 04/10/23 08/21/23 History ipratropium 0.5 mg-albuterol 3 mg 3 ml inhalation Q6H PRN shortness 04/22/23 08/21/23 Rx (2.5 mg base)/3 mL nebulization of breath or wheezing #90 mL soln acetaminophen 300 mg-codeine 30 mg 1 tab PO DAILY 08/21/23 08/21/23 History tablet losartan 50 mg tablet (Cozaar) 50 mg PO DAILY 08/21/23 08/21/23 History polysaccharide iron complex 180 mg 180 mg PO DAILY 08/21/23 08/21/23 History iron capsule (Pro Fe) acetaminophen 300 mg-codeine 30 mg 1 tab PO TID PRN pain #90 tabs 08/28/23 Rx tablet Allergies Allergy/AdvReac Type Severity Reaction Status Date / Time No Known Drug Allergies Allergy Verified 08/21/23 15:21 Exam Constitutional Documenting provider has reviewed patient's vital signs: yes Common normals: no apparent distress, oriented x3, healthy appearing, alert and well nourished General appearance: cooperative [facility] Common normals: normocephalic, hearing grossly normal bilaterally and moist oral mucous membranes Head and scalp: normocephalic Eye Common normals: PERRL Pupil: PERRL Neck & C-Spine Common normals: full ROM General: normal visual inspection Chest Common normals: inspection of chest normal Respiratory Common normals: normal respiratory effort, no retractions and no use of accessory muscles Back & Pelvis Lumbar spine/lower back: ROM limited, pain with ROM and straight leg raise negative bilaterally Extremity Right lower extremity: hip joint Other: pain with internal and external rotation. Weakness to BLE 4/5 strength Neuro Common normals: oriented x3, CN's II-XII intact bilaterally, moves all extremities, no focal motor deficits, no sensory deficits noted and deep tendon reflexes 2+ bilaterally Sensorium/orientation: alert Motor exam: strength 5/5 throughout and no movement abnormalities noted Psych Common normals: mental status grossly normal, thought process normal, cooperative, affect normal, speech normal and activity/motor behavior normal Speech: normal speech Thought process: normal thought process Assessment and Plan Assessment and Plan (1) Lumbar spondylosis: Assessment and Plan: The patient has had over 3 months of moderate to severe low back pain with functional impairment and inadequate response to conservative care including NSAIDS (unless there are contraindication such as concurrent blood thinners), multiple oral or topical pain medications, and home exercise program/physical therapy. ? Patient has completed >6 weeks of guided home exercise program and/or formal physical therapy program without relief of their symptoms.? I have reviewed the imaging of the lumbar spine and no red flags were identified.? The Oswestry Disability Index was completed, and the patient scored a 30%.? The patient noted the following:?? mild to moderate pain, pain when standing longer than 30 minutes, pain with sitting longer than 30 minutes, pain that impairs social life and travel We discussed the risks and benefits of the procedure with the patient, and we are NOT planning on using sedation as outlined in the guidelines from Medicare unless there is a documented reason that sedation would be strongly recommended.?? ?The procedure will be completed with fluoroscopic guidance.? (2) History of lumbar fusion: (3) Chronic, continuous use of opioids: (4) Lumbar stenosis with neurogenic claudication: Plan bilateral L3-4 L4-5 MBB X2 working towards thermal RFA continue current medications consider vertiflex in the future if symptoms not improved from MBB continue HEP f/u 1 week after MBB
== END 2023-09-14 07:43 | disposition home or self-care (01) ==
LOC: PM 07:42
PROVIDERS: PCP Internal Medicine; Visit Provider Nurse Practitioner
DX: M47.816 Spondylosis without myelopathy or radiculopathy, lumbar region (principal); Z79.891 Long term (current) use of opiate analgesic; M48.062 Spinal stenosis, lumbar region with neurogenic claudication
CPT/HCPCS: G0463

== ENCOUNTER 2023-10-09 08:08 | Day surgery (SDC) | payer OTHER, SELFPAY ==
[2023-10-09 08:45] VITALS: BP 171/82; PULSE 62; RESP 18; TEMP 36.7; O2SAT 94
[2023-10-09 09:54] VITALS: BP 145/75; PULSE 61; RESP 18; O2SAT 91
--- NOTE | 2023-10-09 09:57 | W.PM.PROCNOT ---
Date of procedure: 10/09/23 Pre-op diagnosis: Lumbar spondylosis Post-op diagnosis: same as pre-op Procedure: Procedure: Bilateral L3-4, L4-5 medial branch block Medications: Bupivacaine 0.25% 5cc The patient was seen and examined in the preoperative holding area.? An informed consent was obtained and placed on the chart.? The patient was brought to the medical procedure unit and placed in the prone position.? A timeout was completed verifying correct patient, procedure site, positioning, plan, and special equipment.? Using aseptic technique, the needle was placed at left L4. Under direct fluoroscopic visualization a Quincke-tipped spinal needle was advanced to the junction of the superior articulating process with the transverse process at the designated medial branch segment.? Preceded by negative aspiration, the above-mentioned injectate was placed in 1 mL aliquots.? The procedure was repeated at left L5, S1.? The needle was removed and insertion site was covered. The same procedure, at the same levels, was completed on the right side. The patient was taken to the postprocedural recovery area and monitored for an appropriate length of time before found suitable for discharge in the company of a responsible adult. Anesthesia: Local Surgeon: Jayshree Vargas Pathology: none sent Condition: stable Disposition: no change
[2023-10-09 09:58] VITALS: BP 215/96; PULSE 62; RESP 18; O2SAT 94
[2023-10-09] MEDS: LIDOCAINE HCL 2% PF 100 MG/5 ML VIAL 2 ML INJ (09:59)
[2023-10-09] MEDS: BUPIVACAINE HCL 0.25% PF 25 MG/10 ML VIAL 8 ML INJ (09:59)
== END 2023-10-09 10:02 | disposition home or self-care (01) ==
PROVIDERS: PCP Internal Medicine; Visit Provider Anesthesiology
DX: M47.816 Spondylosis without myelopathy or radiculopathy, lumbar region (principal)
CPT/HCPCS: 64493; 64494

== ENCOUNTER 2023-10-19 08:49 | Outpatient (OUT) | payer OTHER, SELFPAY ==
--- NOTE | 2023-10-19 09:09 | PM.CN ---
Consult Note: HPI Data of Consult Patient: known to practice within the last 3 years Requesting Physician: Violet Saucedo NP Primary Care Provider: Shaikh Lev MD Consult Narrative Reason for consult: f/u Narrative: Diana Champion a pleasant 68 year old female presents for evaluation and management of low back pain. Today rating pain 5/10 in low back and right hips. Recently underwent bilateral L3-4 L4-5 MBB #1 with 90% improvement and pain relief immediately following and hours after cc:: CC: Violet Saucedo NP [facility] PFS Medical History Acute infective exacerbation of chronic obstructive airway disease ?J44.1 - Chronic obstructive pulmonary disease with (acute) exacerbation (ICD-10) Asthma ?J45.909 - Unspecified asthma, uncomplicated (ICD-10) Chronic low back pain ?M54.50 - Low back pain, unspecified (ICD-10) ?G89.29 - Other chronic pain (ICD-10) Chronic obstructive pulmonary disease ?J44.9 - Chronic obstructive pulmonary disease, unspecified (ICD-10) Depression ?F32.A - Depression, unspecified (ICD-10) Heart murmur ?R01.1 - Cardiac murmur, unspecified (ICD-10) Hypertension ?I10 - Essential (primary) hypertension (ICD-10) Hypoxia ?R09.02 - Hypoxemia (ICD-10) Social History Smoking status: Never smoker Do you think of yourself as: straight/heterosexual Gender Identity: female Meds Home Medications and Allergies Home Medications Medication Instructions Recorded Confirmed Type albuterol sulfate 90 mcg/actuation 2 puff inhalation Q4H PRN 04/10/23 10/09/23 History aerosol inhaler shortness of breath or wheezing fluticasone fur. 200 mcg-umeclid 1 inh inhalation Q24H COPD 04/10/23 10/09/23 History 62.5 mcg-vilant 25 mcg inhalat.powder (Trelegy Ellipta) magnesium oxide 400 mg (241.3 mg 400 mg PO DAILY 04/10/23 10/09/23 History magnesium) tablet omeprazole 20 mg capsule,delayed 20 mg PO DAILY 04/10/23 10/09/23 History release paroxetine HCl 20 mg tablet 20 mg PO .qhs 04/10/23 10/09/23 History solifenacin 5 mg tablet 5 mg PO DAILY 04/10/23 10/09/23 History trazodone 50 mg tablet 50 mg PO .qhs 04/10/23 10/09/23 History ipratropium 0.5 mg-albuterol 3 mg 3 ml inhalation Q6H PRN shortness 04/22/23 10/09/23 Rx (2.5 mg base)/3 mL nebulization of breath or wheezing #90 mL soln losartan 50 mg tablet (Cozaar) 50 mg PO DAILY 08/21/23 10/09/23 History polysaccharide iron complex 180 mg 180 mg PO DAILY 08/21/23 10/09/23 History iron capsule (Pro Fe) acetaminophen 300 mg-codeine 30 mg 1 tab PO TID PRN pain #90 tabs 08/28/23 10/09/23 Rx tablet alendronate 35 mg tablet 35 mg PO DAILY 09/14/23 10/09/23 History montelukast 10 mg tablet 10 mg PO DAILY 09/14/23 10/09/23 History pramipexole 0.25 mg tablet 0.25 mg PO QPM 09/14/23 10/09/23 History (Mirapex) Allergies Allergy/AdvReac Type Severity Reaction Status Date / Time No Known Drug Allergies Allergy Verified 10/09/23 08:41 Exam Constitutional Documenting provider has reviewed patient's vital signs: yes Common normals: no apparent distress, oriented x3, healthy appearing, alert and well nourished General appearance: cooperative [facility] Common normals: normocephalic, hearing grossly normal bilaterally and moist oral mucous membranes Head and scalp: normocephalic Eye Common normals: PERRL Pupil: PERRL Neck & C-Spine Common normals: full ROM General: normal visual inspection Chest Common normals: inspection of chest normal Respiratory Common normals: normal respiratory effort, no retractions and no use of accessory muscles Back & Pelvis Lumbar spine/lower back: ROM limited, pain with ROM and straight leg raise negative bilaterally Extremity Right lower extremity: hip joint Other: pain with internal and external rotation. Weakness to BLE 4/5 strength Neuro Common normals: oriented x3, CN's II-XII intact bilaterally, moves all extremities, no focal motor deficits, no sensory deficits noted and deep tendon reflexes 2+ bilaterally Sensorium/orientation: alert Motor exam: strength 5/5 throughout and no movement abnormalities noted Psych Common normals: mental status grossly normal, thought process normal, cooperative, affect normal, speech normal and activity/motor behavior normal Speech: normal speech Thought process: normal thought process Assessment and Plan Assessment and Plan (1) Lumbar spondylosis: Assessment and Plan: The patient has had over 3 months of moderate to severe low back pain with functional impairment and inadequate response to conservative care including NSAIDS (unless there are contraindication such as concurrent blood thinners), multiple oral or topical pain medications, and home exercise program/physical therapy. ? Patient has completed >6 weeks of guided home exercise program and/or formal physical therapy program without relief of their symptoms.? I have reviewed the imaging of the lumbar spine and no red flags were identified.? The Oswestry Disability Index was completed, and the patient scored a 30%.? The patient noted the following:?? mild to moderate pain, pain when standing longer than 30 minutes, pain with sitting longer than 30 minutes, pain that impairs social life and travel We discussed the risks and benefits of the procedure with the patient, and we are NOT planning on using sedation as outlined in the guidelines from Medicare unless there is a documented reason that sedation would be strongly recommended.?? ?The procedure will be completed with fluoroscopic guidance.? (2) Osteoarthritis of right hip: Assessment and Plan: severe OA on xray pending hip replacement once cleared by PCP and ortho defer on injections at this time Qualifiers: Osteoarthritis type: primary Qualified Code(s): M16.11 - Unilateral primary osteoarthritis, right hip (3) History of lumbar fusion: (4) Chronic, continuous use of opioids: Plan bilateral L 3,4,5 MBB #2 working towards thermal RFA continue HEP as tolerated continue current medications, tolerating well without side effect f/u 1 week after procedure
== END 2023-10-19 08:50 | disposition home or self-care (01) ==
LOC: PM 08:49
PROVIDERS: PCP Internal Medicine; Visit Provider Nurse Practitioner
DX: M16.11 Unilateral primary osteoarthritis, right hip (principal); Z98.890 Other specified postprocedural states; Z79.891 Long term (current) use of opiate analgesic
CPT/HCPCS: G0463

== ENCOUNTER 2023-10-25 09:26 | Outpatient (OUT) | payer OTHER, SELFPAY ==
--- OUTSIDE RECORDS SUMMARY | 2023-10-25 09:49 | XMS_ITS | CCD ---
Author Name Unknown Address [address] [place] [address] Organization [facility] Care Team Providers Care Straddle Buggy Operator Name Role Phone Steph Collier Attending Provider Unavailable Chantel Rainey Primary Care Provider Unavailabl e Joana, Herberth Attending Provider Unavailable Unavailable Primary Care Provider Unavailabl e UNKNOWN, PHYSICIAN Referring Unavailable JOO LINN Attending Unavailable JOO LINN Admitting Unavailable UNKNOWN, PHYSICIAN Primary Care Unavailable Rena Hurd Unavailable Joana, Herberth Unavailable Gato Domingo Unavailable Steph Collier Attending Provider [phone] MD Gato Domingo Attending Provider [phone] MD Nicky Ohara Primary Care Provider Gilma Trent Unavailable JOANA, HERBERTH Attending Unavailable JOANA, HERBERTH Admitting Unavailable FAWWAD, SAUNDERS H Primary Care Unavailable HERBERTH BERNARD Consulting Unavailable SAM ., BO Admitting Unavailable FAWWAD, SAUNDERS H Primary Care Unavailable FAWWAD, SAUNDERS H Consulting Unavailable BO MCKINNON Attending Unavailable BRITTANY GALDAMEZ Consulting Unavailable ISABEL ., DR SANTIAGO Admitting Unavailabl e KARBLANCA ., DR SANTIAGO Attending Unavailabl e KARBLANCA ., DR SANTIAGO Consulting Unavailabl e FAWWAD, SAUNDERS H Primary Care Unavailable SODDY DAISY, DR BRITTANY Elizondo Consulting Unavailable DARWIN, DR STEPH Holland Consulting Unavailable ISABEL ., DR SANTIAGO Admitting Unavailabl e KARBLANCA ., DR SANTIAGO Attending Unavailabl e KARASIK ., DR SANTIAGO Consulting Unavailabl e FAWWAD, SAUNDERS H Primary Care Unavailable JOANA, HERBERTH Admitting Unavailable JOANA, HERBERTH Attending Unavailable FAWWAD, SAUNDERS H Primary Care Unavailable JOANA, HERBERTH Consulting Unavailable JOANA, HERBERTH Admitting Unavailable JOANA, HERBERTH Attending Unavailable FAWWAD, SAUNDERS H Primary Care Unavailable JOANA, HERBERTH Consulting Unavailable FAWWAD, SAUNDERS H Primary Care Unavailable FAWWAD, SAUNDERS H Referring Unavailable SAMSA ., BO Attending Unavailable SAMSA ., BO Consulting Unavailable SAMSA ., BO Admitting Unavailable FAWWAD, SAUNDERS H Primary Care Unavailable LONDONO, WINCHA Consulting Unavailable FAWWAD, SAUNDERS H Admitting Unavailable FAWWAD, SAUNDERS H Attending Unavailable FAWWAD, SAUNDERS H Consulting Unavailable FAWWAD, SAUNDERS H Admitting Unavailable FAWWAD, SAUNDERS H Attending Unavailable FAWWAD, SAUNDERS H Consulting Unavailable FAWWAD, SAUNDERS H Primary Care Unavailable FAWWAD, SAUNDERS H Primary Care Unavailable FAWWAD, SAUNDERS H Admitting Unavailable FAWWAD, SAUNDERS H Attending Unavailable FAWWAD, SAUNDERS H Consulting Unavailable DR STEPH GRANADOS Consulting Unavailable FAWWAD, SAUNDERS H Primary Care Unavailable FAWWAD, SAUNDERS H Admitting Unavailable FAWWAD, SAUNDERS H Attending Unavailable FAWWAD, SAUNDERS H Consulting Unavailable [place], [facility] Attending Unavailable JOO LINN Attending Unavailable Fawwad, Saunders Primary Care Unavailable Gato Domingo Attending Unavailabl Gato Galindo Admitting Unavailabl e FAWWAD, SAUNDERS Attending Unavailable Gilorenzaitis , Jayshree Johnson Attending Unavailable Alicia DRAPER, Jayshree Johnson Attending Unavailable Unavailable Unavailable Unavailable Allergies Allergy Classification Reported Allergen(s) Allergy Type Date of Onset Reaction(s) Facility (3 sources) fentaNYL; Translations: [fentanyl] Drug Allergy 07-07-20 [facility] (2 sources) linezolid; Translations: [LINEZOLID] Drug Allergy 03-17-20 [facility] (20 sources) Vancomycin; Translations: [VANCOMYCIN] Drug Allergy 03-17-20 20 Unknown [facility] (11 sources) DENIES METAL SENSITITIVITY Propensity to adverse reactions Unknown [employer] Other Medications Current Medications Medication Drug Class(es) Dates Sig (Normalized) Sig (Original) 30 ACTUAT fluticasone furoate 0.2 MG/ACTUAT / umeclidinium 0.0625 MG/ACTUAT / vilanterol 0.025 MG/ACTUAT Dry Powder Inhaler [Trelegy] (2 sources) take 1 puff(s) by inhalation once daily Trelegy Ellipta 200-62.5-25 MCG/INH 1 puff Inhalation Once a day Active Albuterol (9 sources) beta2-Adrenergic Agonist Start: 07-07-2017 take 1 puff(s) by inhalation every four to six hours Albuterol Sulfate Active 1 PUFF Inhalation EVERY 4-6 HOURS July 07, 2017 10:17am Start: 07-07-2017 take 1 puff(s) by in halation every four to six hours Albuterol Sulfate Active 1 PUFF INHALATION EVERY 4-6 HOURS July 06, 2017 11:00pm take 1 puff(s) by in halation every four hours as needed Albuterol Sulfate HFA 108 (90 Base) MCG/ACT 1 puff as needed Inhalation every 4 hrs Active take 1 puff(s) by in halation every four hours as needed Albuterol Sulfate HFA 108 (90 Base) MCG/ACT 1 puff as needed Inhalation every 4 hrs Active alendronic acid 35 mg oral tablet (4 sources) Bisphosphonate Alendronate Sodi um 35 MG 1 tablet 30 minutes before the first food, beverage or medicine of the day with plain water Orally once a week Active amLODIPine 2.5 mg oral tablet (11 sources) Dihydropyridine Calcium Channel Edwin Start: 7 take 2.5 mg by mouth twice daily Amlodipine Active 2.5 MG Oral Twice daily July 07, 2017 10:21am take 1 tablet by bessie th every twenty-four hours amLODIPine Besylate 5 MG 1 tablet Orally Once a day Active amLODIPine (NORV ASC) 10 mg tablet Take 10 mg by mouth. 0 Active Comment on above: Take 10 mg by mouth. Aspirin (4 sources) Platelet Aggregation Inhibitor, Nonsteroidal Anti-inflammatory Drug take 1 tablet by mouth once daily Aspirin 325 mg 325 mg one tab orally daily Active baclofen 5 mg oral tablet (1 source) gamma-Aminobutyric Acid-ergic Agonist take 1 tablet by mouth every eight hours Baclofen 5 MG 1 tablet as needed Orally Three times a day Active clonazePAM 0.5 mg oral tablet (3 sources) Benzodiazepine Start: 07-07-20 17 take 0.5 mg by mouth once daily Clonazepam Active 0.5 MG Oral Daily July 07, 2017 10:19am Comment on above: Take 0.5 mg by mouth . cyclobenzaprine hydrochloride 10 mg oral tablet (3 sources) Muscle Relaxant Start: 07-07-2017 take 10 mg by mouth once daily Cyclobenzaprine Active 10 MG Oral Daily July 07, 2017 10:19am Comment on above: Take 10 mg by mouth. famotidine 40 mg oral tablet (3 sources) Histamine-2 Receptor Antagonist Start: 07-07-2017 End: 12-08-2022 take 40 mg by mouth at bedtime Famotidine Active 40 MG Oral Bedtime July 07, 2017 10:21am famotidine ([facility] ID) 20 mg tablet Take 20 mg by mouth. 0 Active Comment on above: Take 20 mg by mouth. ferrous sulfate 325 mg oral tablet (9 sources) take 1 tablet by mouth every other day Iron 325 (65 Fe) MG 1 tablet Orally every other day Active fluticasone propionate 0.05 mg/actuat metered dose nasal spray (1 source) Corticosteroid take 2 spray(s) nasal route once daily Flonase Allergy Relief 50 MCG/ACT 2 spray in each nostril Nasally Once a day Active Ijcwdhkbdxm-Ednxllnaf-Cd lanter (1 source) Star t: 0212-26 Gxbriyeqacd-Ouxgnhoma-X ilanter (Trelegy Ellipta) 200-62.5-25 mcg blister with device Active 1 INH INHALATION As Directed December 08, 2022 12:00am furosemide 20 mg oral tablet (3 sources) Loop Diuretic take 1 tablet by mouth every twenty-four hours Furosemide 20 MG 1 tablet Orally Once a day Active gabapentin 300 mg oral capsule (1 source) Anti-epileptic Agent take 1 capsule by mouth every twelve hours Gabapentin 300 MG 1 capsule Orally twice a day Active hydroCHLOROthiazide 25 mg oral tablet (9 sources) Thiazide Diuretic Star t: 12-26 23 take 25 mg by mouth once daily Hydrochlorothiazide Active 25 MG PO Daily December 08, 2022 12:00am 200 actuat ipratropium bromide 0.017 mg/actuat metered dose inhaler (6 sources) Anticholinergic Star t: 11-25 17 take 1 puff(s) by inhalation twice daily Ipratropium Brickeys Active 2 PUFF Inhalation Twice daily July 07, 2017 10:18am take 2 puff(s) by in halation four times daily Atrovent HFA 17 MCG/ACT 2 puffs Inhalation Four times a day Active Iron (2 sources) take 1 tablet by mouth every other day Iron 325 (65 Fe) MG 1 tablet Orally every other day Active levocetirizine dihydrochloride 5 mg oral tablet (1 source) Histamine-1 Receptor Antagonist take 1 tablet by mouth every twenty-four hours Levocetirizine Dihydrochloride 5 MG 1 tablet in the evening Orally Once a day Active lisinopril 40 mg oral tablet (2 sources) Angiotensin Converting Enzyme Inhibitor Start: End: take 0.5 tablet by mouth twice daily Lisinopril Active 0.5 TAB Oral Twice daily July 07, 2017 10:19am loratadine 10 mg oral tablet (2 sources) Start: take 10 mg by mouth once daily Loratadine Active 10 MG Oral Daily July 07, 2017 10:21am losartan potassium 50 mg oral tablet (3 sources) Angiotensin 2 Receptor Edwin take 1 tablet by mouth in the morning, then take 1 tablet by mouth twice daily in the evening Losartan Potassium 50 MG 1 tablet AM / 1 tablet PM Orally bid for 90 days Active Magnesium (1 source) Start: take 200 mg by mouth once daily Magnesium Active 200 MG PO Daily December 08, 2022 12:00am magnesium oxide 400 mg oral tablet (7 sources) Start: take 1 tablet by mouth every twenty-four hours Magnesium Oxide 400 MG 1 tablet with food Orally Once a day for 90 days Aug, Active montelukast 10 mg oral tablet (11 sources) Leukotriene Receptor Antagonist take 1 tablet by mouth every twenty-four hours Singulair 10 MG 1 tablet Orally Once a day Active Multi For Her 50+ - (11 sources) Multi For Her 50 + - as directed Orally ONCE A DAY Active Multi For Her 50 + - as directed Orally Active omeprazole 20 mg delayed release oral tablet (14 sources) Proton Pump Inhibitor Start: 07-07-2017 take 20 mg by mouth once daily Omeprazole Active 20 MG Oral Daily July 07, 2017 10:21am take 1 capsule by mo [facility] every twelve hours Omeprazole 20 MG 1 CAPSULE Orally TWICE A DAY Active take 1 capsule by mouth once ok ly Omeprazole 20 MG 1 capsule 30 minutes before morning meal Orally Once a day Active Comment on above: Take 20 mg by mouth. 24 hr oxybutynin chloride 5 mg extended release oral tablet (8 sources) Cholinergic Muscarinic Antagonist take 1 tablet by mouth every twenty-four hours Oxybutynin Chloride ER 5 MG 1 tablet Orally Once a day Active PARoxetine hydrochloride 20 mg oral tablet (14 sources) Serotonin Reuptake Inhibitor Start: 07-07-20 17 take 20 mg by mouth once daily Paroxetine Hcl Active 20 MG Oral Daily July 07, 2017 10:21am PARoxetine (PAXI L) 40 mg tablet Take 40 mg by mouth. 0 Active Comment on above: Take 40 mg by mouth. potassium 99 mg extended release oral tablet (1 source) Start: 12-08-2022 take 99 mg by mouth twice daily Potassium Active 99 MG PO Twice daily December 08, 2022 12:00am potassium chloride 20 meq extended release oral tablet (12 sources) Start: 08-05-2022 take 1 tablet by mouth every twenty-four hours Potassium Chloride ER 20 MEQ 1 tablet with food Orally Once a day for 90 day(s) Jul, Active Start: 08-05-2022 take 1 tablet by [facility] every twelve hours Potassium Chloride ER 20 MEQ 1 tablet with food Orally Twice a day for 90 days Jul, Active pramipexole dihydrochloride 0.25 mg oral tablet (3 sources) Nonergot Dopamine Agonist take 1 tablet by mouth every twenty-four hours Pramipexole Dihydrochloride 0.25 MG 1 tablet Orally Once a day Active solifenacin succinate 10 mg oral tablet (3 sources) Cholinergic Muscarinic Antagonist take 1 tablet by mouth every twenty-four hours VESIcare 10 MG 1 tablet Orally Once a day Active Trelegy Ellipta 200-62.5-25 MCG/INH (5 sources) take 1 puff(s) by inhalation once daily Trelegy Ellipta 200-62.5-25 MCG/INH 1 puff Inhalation Once a day Active Vitamin D 25 MCG (1000 UT) (7 sources) take 1 tablet by mouth once daily Vitamin D 25 MCG (1000 UT) 1 tablet Orally Once a day Active Completed/Discontinued Medications Medication Drug Class(es) Dates Sig (Normalized) Sig (Original) albuterol HFA (PROVENTIL HFA, VENTOLIN HFA) 90 mcg/actuation inhaler (1 source) take 2 puff(s) by inhalation every six hours as needed albuterol HFA (PROVENTIL HFA, VENTOLIN HFA) 90 mcg/actuation inhaler Inhale 2 Puffs as instructed every 6 hours as needed. 0 Active Comment on above: Inhale 2 Puffs as in structed every 6 hours as needed. 12 hr guaiFENesin 600 mg extended release oral tablet (7 sources) take 1 tablet by mouth every twelve hours guaiFENesin ER 600 MG 1 tablet as needed Orally every 12 hrs Not-Taking hydroCHLOROthiazide 25 mg / spironolactone 25 mg oral tablet (3 sources) Thiazide Diuretic, Aldosterone Antagonist Start: 01-03-20 19 take 1 tablet by mouth once spironolactone-hct z 25/25 (ALDACTAZIDE) 25-25 mg per tablet Take 25 mg by mouth. 0 01/03/2019 Active Start: 09-15-2017 End: 12-08-2022 take 1 tablet by mouth once daily Spironolacton-Hydrochlorothiaz Active 1 TAB Oral Daily September 15, 2017 10:22am Comment on above: Take 25 mg by mouth. methylPREDNISolone (18 sources) Corticosteroid Start: 07-18-2018 Depo-Medrol 40 mg Jul, 1 mL Start: 01-31-2018 Depo-Medrol 40 mg Jan, 1 mL traZODone hydrochloride 50 mg oral tablet (14 sources) Serotonin Reuptake Inhibitor Start: 07-07-2017 traZODone (DESYREL) 50 mg tablet Take 50 mg by mouth. 0 01/21/2019 Active Comment on above: Take 50 mg by mouth. Problems Active Problems Problem Classification Problem Date Documented Date Episodic/Chronic Cancer of colon (20 sources) History of malignant neoplasm of colon; Translations: [History of large intestine malignacy] Onset: 2 Resolved: 2 Episodic Cancer of rectum and anus (5 sources) History of malignant neoplasm of anus; Translations: [Personal history of other malignant neoplasm of rectum, rectosigmoid junction, and anus] Onset: 3 Episodic Chronic kidney disease (14 sources) Chronic kidney disease stage 3; Translations: [Chronic kidney disease, stage 3 (moderate)] Chronic Complication of device; implant or graft (11 sources) Prosthetic joint loosening; Translations: [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, initial encounter] Episodic Deficiency and other anemia (11 sources) Anemia of renal disease; Translations: [Anemia in chronic kidney disease] Chronic Essential hypertension (11 sources) Hypertensive disorder; Translations: [Essential (primary) hypertension] Chronic Fluid and electrolyte disorders (6 sources) Hypokalemia; Translations: [HYPOKALEMIA] Onset: 2 Resolved: 2 Episodic Gastrointestinal hemorrhage (11 sources) Hemorrhage of rectum and anus; Translations: [Hemorrhage of rectum and anus] Episodic Hypertension with complications and secondary hypertension (20 sources) Chronic kidney disease due to hypertension; Translations: [Hypertensive chronic kidney disease with stage 1 through stage 4 chronic kidney disease, or unspecified chronic kidney disease] Onset: 2 Resolved: 2 Chronic Osteoarthritis (20 sources) Arthritis of left hip; Translations: [Unilateral primary osteoarthritis, left hip] Onset: 3 Chronic Other aftercare (11 sources) Patient encounter status; Translations: [Aftercare following joint replacement surgery] Chronic Other connective tissue disease (11 sources) History of repair of hip joint; Translations: [Presence of left artificial hip joint] Chronic Other connective tissue disease (11 sources) History of total knee arthroplasty; Translations: [Presence of right artificial knee joint] Chronic Other diseases of kidney and ureters (11 sources) Secondary hyperparathyroidism; Translations: [Secondary hyperparathyroidism of renal origin] Chronic Other diseases of kidney and ureters (5 sources) Secondary hyperparathyroidism of renal origin; Translations: [SEC HYPERPARATHYROIDISM RENAL ORIGN] Onset: 2 Resolved: 2 Chronic Other lower respiratory disease (2 sources) Other forms of dyspnea; Translations: [Other forms of dyspnea] Onset: 2 Episodic Other nervous system disorders (11 sources) Chronic pain; Translations: [Other chronic pain] Chronic Other non-traumatic joint disorders (20 sources) Knee pain; Translations: [Pain in right knee] Episodic Other non-traumatic joint disorders (11 sources) Pain in right hip joint; Translations: [Pain in right hip] Episodic Other non-traumatic joint disorders (11 sources) Hip pain; Translations: [Pain in left hip] Episodic Other non-traumatic joint disorders (1 source) Pain in right hip; Translations: [PAIN IN RIGHT HIP] Onset: 3 Episodic Other nutritional; endocrine; and metabolic disorders (11 sources) Body mass index 30+ - obesity; Translations: [Body mass index (BMI) 36.0-36.9, adult] Chronic Other nutritional; endocrine; and metabolic disorders (7 sources) Hypomagnesemia; Translations: [Hypomagnesemia] Chronic Other nutritional; endocrine; and metabolic disorders (6 sources) Hypomagnesemia; Translations: [HYPOMAGNESEMIA] Onset: 3 Chronic Other nutritional; endocrine; and metabolic disorders (5 sources) Hyperuricemia without signs of inflammatory arthritis and tophaceous disease; Translations: [HU W/O SIGNS IA AND TOPHACEOUS DZ] Onset: 2 Resolved: 2 Episodic Spondylosis; intervertebral disc disorders; other back problems (20 sources) Sacroiliitis, not elsewhere classified; Translations: [Herniation of nucleus pulposus of lumbar intervertebral disc] Chronic Spondylosis; intervertebral disc disorders; other back problems (15 sources) Spinal stenosis of lumbar region; Translations: [Spinal stenosis, lumbar region without neurogenic claudication] Onset: 3 Episodic Unclassified (4 sources) CONTACT W/AND (SUSP) EXPOS COVID-19; Translations: [CONTACT W/AND (SUSP) EXPOS COVID-19] Onset: 2 Unclassified (4 sources) CHRN KIDNEY DISEASE STG 3 UNSP; Translations: [CHRN KIDNEY DISEASE STG 3 UNSP] Onset: 2 Unclassified (3 sources) ACUTE COUGH; Translations: [ACUTE COUGH] Onset: 3 Unclassified (1 source) Encounter for screening for malignant neoplasm of colon; Translations: [Encounter for screening for malignant neoplasm of colon] Onset: 3 Viral infection (1 source) COVID-19; Translations: [COVID-19] Onset: Past or Other Problems Problem Classification Problem Date Documented Da te Episodic/Chronic Chronic kidney disease (11 sources) Chronic kidney disease; Translations: [Chronic kidney disease, stage III (moderate)] Onset: 11-17-2021 Resolved: 11-17-2021 Immunizations and screening for infectious disease (2 sources) Contact with and (suspected) exposure to other viral communicable diseases; Translations: [Encounter for screening for human papillomavirus (HPV)] Onset: 08-30-2021 Resolved: 08-30-2021 Episodic Other bone disease and musculoskeletal deformities (1 source) Other specified disorders of bone density and structure, right thigh; Translations: [OTH D/O BONE DEN STRUCT RT THIGH] Onset: 12-19-2022 Episodic Other lower respiratory disease (4 sources) Respiratory disorder, unspecified; Translations: [RESPIRATORY DISORDER UNSPECIFIED] Onset: 06-08-2022 Episodic Other screening for suspected conditions (not mental disorders or infectious disease) (8 sources) Encounter for screening mammogram for malignant neoplasm of breast; Translations: [Encounter for screening for malignant neoplasm of cervix] Onset: 11-11-2022 Episodic Other upper respiratory infections (5 sources) Acute upper respiratory infection, unspecified; Translations: [Viral URI J06.9] Onset: 08-30-2021 Resolved: 08-30-2021 Episodic Residual codes; unclassified (1 source) Asymptomatic menopausal state; Translations: [ASYMPTOMATIC MENOPAUSAL STATE] Onset: 12-19-2022 Episodic Unclassified (1 source) CONTACT W/AND (SUSP) EXPOS COVID-19; Translations: [CONTACT W/AND (SUSP) EXPOS COVID-19] Onset: 04-04-2023 Unclassified (1 source) ACUTE COUGH; Translations: [ACUTE COUGH] Onset: 02-22-2023 Unclassified (1 source) CHRN KIDNEY DISEASE STG 3 UNSP; Translations: [CHRN KIDNEY DISEASE STG 3 UNSP] Onset: 08-19-2022 Results Test Name Value Interpretation Reference Range Facil ity Follow-Upon 05-08-2023 Follow-Up [id number] Nell Champion 1955 F Date Provider Department Center 05/08/2023 Siddharth-HETAL SCALES CARD [facility] Family History Problem Relation Age of Onset Heart failure Mother Heart disease Father Family Status - Relation Status Age at Mother Father Level of Service:73732 AL OFFICE/OUTPATIENT ESTABLISHED LOW MDM 20-29 MIN [facility] 05-03-2023 36 [facility]T HER LUNG DISEASE. WILL CALL TO RESCHEDULE WHEN FULLY HEALED FROM LUNGS AND CLEARED//[facility] 04-19-2023 36 FYI CALLED PATIENT T O F/U ON MEDICAL AND PULMONARY CLEARANCES FOR R ELZA ON 05/19 AND PRE-OP RIYA'T 04/27 WITH US AND PATIENT IS CURRENTLY INPATIENT SINCE LAST WEEK D/T COVID AND PULMONARY ISSUES, SHE WILL CALL US ON 04/25 WITH PROGRESS, PLEASE ADVISE IF WE SHOULD CANCEL SURGERY FOR NOW..THANKS//[facility] SYMPTOMATIC COVID-19 ANTIGEN on 04-04-2023 EUA Statement SEE BELOW Normal [facility] Comment on above: Result Comment: This test has not been FDA cleared or approved, but has been authorized by the FDA under an Emergency Use Authorization (EUA) for use by authorized laboratories certified under CLIA that meet the requirements to perform moderate or high complexity testing. This test has been authorized only for the detection of proteins from SARS-CoV-2, not for any other viruses or pathogens. The emergency use of this test is authorized for the duration of the declaration that circumstances exist justifying the authorization of emergency use of in vitro diagnostic tests for detection and/or diagnosis of Covid-19 under section 564(b)(1) of the Act, 21 U.S.C. 360bbb-3(b)(1), unless the declaration is terminated or authorization is revoked sooner. Performed By: #### C VDAGS #### [facility] [address] [place] [address] Dr. Shayne Roldan SARS-CoV-2 (COVID-19) RNA NA A+probe Ql (Unsp spec) Positive Abnormal NEGATIVE [facility] pital Comment on above: Performed By: #### C VDAGS #### [facility] [address] [place] [address] Dr. Shayne Roldan XR LSPINE 2_3 VIEWSon 2022 XR LSPINE 2_3 VIEWS EXAMINATION: XR LSPI NE 2_3 VIEWS HISTORY: Pain in thoracic spine COMPARISON: XR L-spine 02/26/2019 FINDINGS: BONES: Posterior mechanical fusion L5-S1 via bilateral pedicle screws and rods; no appreciable hardware fracture or loosening. Moderate right convex curvature of lumbar spine and moderate marked degenerative facet arthropathy L1-L2 through L5-S1. No compression fracture or spondylolisthesis. DISC SPACES: Moderate narrowing L5-S1 with intervertebral disc spacer in place. PARASPINOUS: Left hip replacement. OTHER: Negative. IMPRESSION: 1. No appreciable acute abnormality. 2. Grossly stable degenerative and surgical changes of the lumbar spine. Electronically authenticated by: STEPH GRANADOS Date: 2023-03-24 12:52 Normal [facility] l PTH INTACTon 02-27-2023 PTH, Intact 87 pg/mL Critically high 15-65 [facility] Comment on above: Performed By: #### P THINT #### [facility] [address] [place] [address] Dr. Shayne Roldan HEMOGRAM AND PLATELon 2022 Hematocrit (Bld) [Volume fraction] 44.4 % Normal 3 6.0-48.0 [facility] Comment on above: Performed By: #### H H #### [facility] [address] [place] [address] Dr. Shayne Roldan Hemoglobin (Bld) [Mass/Vol] 14.5 g/dL Normal 12.0-16. 0 [facility] Comment on above: Performed By: #### H H #### [facility] [address] [place] [address] Dr. Shayne Roldan MCH (RBC) [Entitic mass] 30.3 pg Normal 26.7-34.0 [facility] Comment on above: Performed By: #### H H #### [facility] [address] [place] [address] Dr. Shayne Roldan MCHC (RBC) [Mass/Vol] 32.7 g/dL Normal 29.9-35.2 [facility] Comment on above: Performed By: #### H H #### [facility] [address] [place] [address] Dr. Shayne Roldan MCV (RBC) [Entitic vol] 92.9 fL Normal 81.0-99.0 [facility] - [place] Comment on above: Performed By: #### H H #### [facility] [address] [place] [address] Dr. Shayne Roldan PLT 367 103/ul Normal 150-450 [facility] ospital Comment on above: Performed By: #### H H #### [facility] [address] [place] [address] Dr. Shayne Roldan RBC 4.78 106/ul Normal 4.20-5.40 [facility] Comment on above: Performed By: #### H H #### [facility] [address] [place] [address] Dr. Shayne Roldan WBC 9.9 103/ul Normal 4.0-11.0 [facility] Comment on above: Performed By: #### H H #### [facility] [address] [place] [address] Dr. Shayne Roldan MAGNESIUMon 02-25-2023 Magnesium [Mass/Vol] 1.6 mg/dL Critically low 1.8-2.4 [facility] Comment on above: Performed By: #### M G, RENAL, URIC #### [facility] [address] [place] [address] Dr. Shayne Roldan RENAL FUNCTION PANELon 02-25 Albumin [Mass/Vol] 3.4 g/dL Normal 3.4-5.0 The [facility] Comment on above: Performed By: #### M G, RENAL, URIC #### [facility] [address] [place] [address] Dr. Shayne Roldan Calcium [Mass/Vol] 8.7 mg/dL Normal 8.5-10.1 [facility] Comment on above: Performed By: #### M G, RENAL, URIC #### [facility] [address] [place] [address] Dr. Shayne Roldan Chloride [Moles/Vol] 104 mmol/L Normal 98-107 [facility] Comment on above: Performed By: #### M G, RENAL, URIC #### [facility] [address] [address] [address] Shayne Roldan CO2 [Moles/Vol] 25.9 mmol/L Normal 21.0-32.0 [facility] Comment on above: Performed By: #### M G, RENAL, URIC #### [facility] [address] [address] [address] Shayne Roldan Creatinine [Mass/Vol] 1.19 mg/dL Critically high 0.55-1.02 [facility] Comment on above: Performed By: #### M G, RENAL, URIC #### [facility] [address] [place] [address] Dr. Shayne Roldan EGFR-AF S[place] 55 mL/min/1.73m2 Critically low >=60 [facility] Comment on above: Performed By: #### M G, RENAL, URIC #### [facility] [address] [place] [address] Dr. Shayne Roldan EGFR-NON AF [place] 45 mL/min/1.73m2 Critically low >=60 [facility] Comment on above: Performed By: #### M G, RENAL, URIC #### [facility] [address] [place] [address] Dr. Shayne Roldan Glucose [Mass/Vol] 193 mg/dL Critically high 74-106 T [facility] Comment on above: Performed By: #### M G, RENAL, URIC #### [facility] [address] [place] [address] Dr. Shayne Roldan Phosphate [Mass/Vol] 3.2 mg/dL Normal 2.6-4.7 [facility] Comment on above: Performed By: #### M G, RENAL, URIC #### [facility] [address] [place] [address] Dr. Shayne Roldan Potassium [Moles/Vol] 3.9 mmol/L Normal 3.5-5.1 [facility] Comment on above: Performed By: #### M G, RENAL, URIC #### [facility] [address] [place] [address] Dr. Shayne Roldan Sodium [Moles/Vol] 140 mmol/L Normal 136-145 [facility] Comment on above: Performed By: #### M G, RENAL, URIC #### [facility] [address] [place] [address] Dr. Shayne Roldan Urea nitrogen [Mass/Vol] 17.0 mg/dL Normal 7.0-18.0 [facility] Comment on above: Performed By: #### M G, RENAL, URIC #### [facility] [address] [place] [address] Dr. Shayne Roldan UA RANDOM W/MICROSCOPICon BACTERIA TRACE Abnormal NONE SEEN [facility] Comment on above: Performed By: #### M G, RENAL, URIC #### [facility] [address] [place] [address] Dr. Shayne Roldan Bilirubin Ql (U) Negative Normal NEGATIVE [facility] Comment on above: Performed By: #### M G, RENAL, URIC #### [facility] [address] [place] [address] Dr. Shayne Roldan CAST NONE SEEN Normal NONE SEEN The [facility] ostal Comment on above: Performed By: #### M G, RENAL, URIC #### [facility] [address] [place] [address] Dr. Shayne Roldan Clarity (U) CLEAR Normal CLEAR The [facility] Comment on above: Performed By: #### M G, RENAL, URIC #### [facility] [address] [place] [address] Dr. Shayne Roldan Color (U) LT. YELLOW Normal YELLOW [facility] ostal Comment on above: Performed By: #### M G, RENAL, URIC #### [facility] [address] [place] [address] Dr. Shayne Roldan Crystals LM Nom (Urine sed) NONE SEEN Normal NONE SEE N [facility] Comment on above: Performed By: #### M G, RENAL, URIC #### [facility] [address] [place] [address] Dr. Shayne Roldan Epithelial cells LM Ql (Urine sed) RARE Normal N ONE SEEN /RARE The [facility] Comment on above: Performed By: #### M G, RENAL, URIC #### [facility] [address] [place] [address] Dr. Shayne Roldan Glucose Ql (U) Negative Normal NEGATIVE The [facility] Comment on above: Performed By: #### M G, RENAL, URIC #### [facility] [address] [address] [address] Shayne Roldan Hemoglobin Ql (U) Negative Normal NEGATIVE The [facility] Comment on above: Performed By: #### M G, RENAL, URIC #### [facility] [address] [address] [address] Shayne Roldan Ketones Ql (U) Negative Normal NEGATIVE The [facility] Comment on above: Performed By: #### M G, RENAL, URIC #### [facility] [address] [place] [address] Dr. Shayne Roldan LEUKOCYTES Negative Normal NEGATIVE [facility] Comment on above: Performed By: #### M G, RENAL, URIC #### [facility] [address] [place] [address] Dr. Shayne Roldan MUCOUS NONE SEEN Normal NONE SEEN [facility] Comment on above: Performed By: #### M G, RENAL, URIC #### [facility] [address] [place] [address] Dr. Shayne Roldan Nitrite Ql (U) Negative Normal NEGATIVE The [facility] Comment on above: Performed By: #### M G, RENAL, URIC #### [facility] [address] [place] [address] Dr. Shayne Roldan pH (U) 5.0 [pH] Normal 5-9 [facility] Comment on above: Performed By: #### M G, RENAL, URIC #### [facility] [address] [place] [address] Dr. Shayne Roldan RBC 0-2 Normal 0-2 [facility] Comment on above: Performed By: #### M G, RENAL, URIC #### [facility] [address] [place] [address] Dr. Shayne Roldan SPEC GRAVITY 1.025 Normal 1.005-<=1.025 [facility] Comment on above: Performed By: #### M G, RENAL, URIC #### [facility] [address] [address] [address] Shayne Roldan UA PROTEIN Negative Normal NEGATIVE/ TRACE [facility] Comment on above: Performed By: #### M G, RENAL, URIC #### [facility] [address] [address] [address] Shayne Roldan Urobilinogen Qn (U) 0.2 {Rogelio'U}/dL Normal 0.2 - 1. 0 [facility] Comment on above: Performed By: #### M G, RENAL, URIC #### [facility] [address] [place] [address] Dr. Shayne Roldan WBC 0-2 Abnormal NONE SEEN The [facility] Comment on above: Performed By: #### M G, RENAL, URIC #### [facility] [address] [place] [address] Dr. Shayne Roldan URIC ACID SERUMon 02-25-2023 Urate [Mass/Vol] 6.1 mg/dL Critically high 2.6-6.0 [facility] Comment on above: Performed By: #### M G, RENAL, URIC #### [facility] [address] [place] [address] Dr. Shayne Roldan URINE T PROTEIN CREAT RATIOo n 02-25-2023 Protein (U) [Mass/Vol] 13.0 mg/dL Critically high <=12.0 [facility] Comment on above: Performed By: #### M G, RENAL, URIC #### [facility] [address] [address] [address] Shayne Roldan UR PROT CREAT RAT 0.16 Normal The [facility] Comment on above: Performed By: #### M G, RENAL, URIC #### [facility] [address] [place] [address] Dr. Shayne Roldan URINE CREAT 83.60 mg/dL Normal 20.00-300.00 [facility] Comment on above: Performed By: #### M G, RENAL, URIC #### [facility] [address] [place], [place] [address] Dr. Shayne Roldan VITAMIN D 25 OHon 02-25-2023 VIT D 25-OH 41.6 ng/mL Normal The [facility] Comment on above: Performed By: #### M G, RENAL, URIC #### [facility] [address] [place], [place] [address] Dr. Shayne Roldan VIT D RANGES SEE BELOW Normal [facility] Comment on above: Result Comment: <20 ng/mL Vit D deficient 20 - <30 ng/mL Vit D insufficient 30 - 100 ng/mL Vit D sufficient >100 ng/mL Potential Toxicity Performed By: #### M G, RENAL, URIC #### [facility] [address] [place], [place] [address] Dr. Shayne Roldan XR CHEST 2 Von 02-22-2023 XR CHEST 2 V EXAMINATION: XR CHES T 2 V HISTORY: Cough COMPARISON: Chest x-rays 06/08/2022 TECHNIQUE: PA and lateral chest x-rays FINDINGS: The lung parenchyma is free of consolidation or infiltrate. No pneumothorax or pleural effusion. The cardiac, mediastinal and hilar contours are normal. The visualized osseous structures exhibit no gross abnormality. IMPRESSION: No acute cardiopulmonary abnormality. Electronically authenticated by: BRITTANY GALDAMEZ Date: 2023-02-22 16:15 Normal The [facility] MAMM SCREEN 3D PRATEEK CADon 12-15-2022 MG MAMM SCREEN 3D PRATEEK CAD Patient: DIANA CHAMPION Exam Date: 12/15/2022 : 1955 Gender:F Ordering : DR JACK HALL . Admission #: [id number] Family : Order #: [id number] CLICK HERE TO VIEW EXAM RADIOLOGY REPORT PROCEDURE: MAMMOGRAM SCREENING 3D BILATERAL CAD COMPARISON: MAMM SCREEN 3D PRATEEK CAD, 11/26/2021. INDICATIONS: Calculator Name NCI Breast Cancer Risk Assessment Tool 5 Year Breast Cancer Risk 1.20% Lifetime Breast Cancer Risk 4.40% Personal Breast Cancer No Personal Ovarian Cancer No Treatments Excision, radiation, chemotherapy Family Cancers None LOCATION: [facility] BREAST COMPOSITION: Almost entirely fatty. FINDINGS: DIAGNOSTIC CATEGORY 1--NEGATIVE. NO CHANGE FROM COMPARISON ASSESSMENT. Scattered benign-appearing calcifications are present. Scattered benign-appearing lymph nodes are present. RIGHT BREAST: No significant suspicious finding. LEFT BREAST: No significant suspicious finding. RECOMMENDATIONS: ROUTINE MAMMOGRAM AND CLINICAL EVALUATION IN 12 MONTHS. PLEASE NOTE: A NORMAL MAMMOGRAM DOES NOT EXCLUDE THE POSSIBILITY OF BREAST CANCER. A CLINICALLY SUSPICIOUS PALPABLE LUMP SHOULD BE BIOPSIED. Dictated by: Brittany Walters MD on 12/15/2022 at 10:50 Approved by: Brittany Walters MD on 12/15/2022 at 10:[address] [facility] XR DEXA BONE DENSITYon 12-15 XR DEXA BONE DENSITY EXAMINATION: XR DEX A BONE DENSITY, 12/15/2022 9:10 AM EST HISTORY: Menopause present COMPARISON: DEXA bone densitometry 11/19/2020 TECHNIQUE: Dual-energy X-ray absorptiometry (DEXA) bone density study performed for the axial skeleton. FINDINGS: FOREARM ANALYSIS: Average bone mineral density is 0.819 g/cm2. T-score (standard deviation relative to young adult mean): 1.5 . -0.3% change since prior study. FEMUR ANALYSIS: Lowest bone mineral density is within the right femoral trochanter, 0.674 g/cm2. T-score (standard deviation relative to young adult mean): -1.5 . -10.3% change since prior study. IMPRESSION: World [employer] Classification: Osteopenia - Moderate Fracture Risk Electronically authenticated by: STEPH GRANADOS Date: 2022-12-15 09:[address] [facility] Fran 12-08-2022 L Specimen: [id number] Received: 12/08/22 Status: CELIA Oleaсергей Num: [id number] Spec Type: Surgical Subm Dr: Gato Domingo MD Tissues: A Colon Biopsy (DESC COL POLYP) Procedures: HE/2, Gross/Micro L4 Age/ Patient Sex Location Account Attending Physician Diana Champion 67/F [id number] Gato Domingo MD SPEC NUM: [id number] RECD: 12/08/221006 STATUS: CELIA KAY NUM: [id number] KENDRA: 12/08/22 [facility] DR: Gato Domingo MD ENTERED: 12/08/[address] [facility] [address]: KHRIS TYPE: Surgical DEPT: S ENTERED BY: [id number] RECV BY: [id number] ORDERED: HE/2, Gross/Micro L4 ORDERED: HE/2, Gross/Micro L4 Pathological Diagnosis Colon, descending, polypectomy: -Colonic mucosal fold. -Negative for adenoma/dysplasia. Clinical Information Colon cancer Gross Description Received in formalin labeled with the patient's name, number and descending polyp colon are multiple fragments of soft redd tissue and fecal material measuring 3.0 x 0.8 x 0.2 cm. Entirely submitted in one cassette labeled A1. Microscopic Description Two glass slides with H E stained material have been examined. The microscopic findings support the above pathologic diagnosis. CPT Codes 69279 Specimen: [id number] Received: 12/08/22 Status: CELIA Kay Num: [id number] Spec Type: Surgical Subm Dr: Gato Domingo MD Tissues: A Colon Biopsy (DESC COL POLYP) Procedures: FLORENCIA/Shagufta Douglass/Dionna L4 Patient: Diana Chamipon [id number] (Continued) Signed (signature on file) Eunice Rosa MD 12/09/22 1053 [facility] PAP ACOG PANEL 2: 30 to 65on 11-16-2022 . . Normal [facility]ital Comment on above: Performed By: #### [id number] #### [facility] [address] [place] [address] Dr. Shayne Roldan Age Gdln ACOG Testing Comment Normal [facility] Comment on above: Result Comment: <21 or >65 or no age provided Performed By: #### [id number] #### [facility] [address] [place] [address] Dr. Shayne Roldan DIAGNOSIS: Comment Normal [facility] ostal Comment on above: Result Comment: NEGA TIVE FOR INTRAEPITHELIAL LESION OR MALIGNANCY. Performed By: #### [id number] #### [facility] [address] [place] [address] Dr. Shayne Roldan Methodology: Comment Normal [facility] Comment on above: Result Comment: This liquid based ThinPrep(R) pap test was screened with the use of an image guided system. Performed By: #### [id number] #### [facility] [address] [place] [address] Dr. Shayne Roldan Note: Comment Normal [facility] Comment on above: Result Comment: The Pap smear is a screening test designed to aid in the detection of premalignant and malignant conditions of the uterine cervix. It is not a diagnostic procedure and should not be used as the sole means of detecting cervical cancer. Both false-positive and false-negative reports do occur. . Performed By: #### [id number] #### [facility] [address] [place] [address] Dr. Shayne Roldan Performed by: Comment Normal [facility] Comment on above: Result Comment: [employer] ([employer]) Performed By: #### [id number] #### [facility] [address] [place] [address] Dr. Shayne Roldan Specimen adequacy: Comment Normal [facility] Comment on above: Result Comment: Sati sfactory for evaluation. Endocervical and/or squamous metaplastic cells (endocervical component) are present. Performed By: #### [id number] #### [facility] [address] [address] [address] Shayne Roldan RENAL FUNCTION PANELon 08-19 Albumin [Mass/Vol] 3.4 g/dL Normal 3.4-5.0 [facility] Comment on above: Performed By: #### M G, RENAL, URIC #### [facility] [address] [place] [address] Dr. Shayne Roldan Calcium [Mass/Vol] 8.4 mg/dL Critically low 8.5-10.1 Th [facility] Comment on above: Performed By: #### M G, RENAL, URIC #### [facility] [address] [place] [address] Dr. Shayne Roldan Chloride [Moles/Vol] 103 mmol/L Normal 98-107 [facility] Comment on above: Performed By: #### M G, RENAL, URIC #### [facility] [address] [place] [address] Dr. Shayne Roldan CO2 [Moles/Vol] 27.8 mmol/L Normal 21.0-32.0 [facility] Comment on above: Performed By: #### M G, RENAL, URIC #### [facility] [address] [place] [address] Dr. Shayne Roldan Creatinine [Mass/Vol] 1.02 mg/dL Normal 0.55-1.02 [facility] Comment on above: Performed By: #### M G, RENAL, URIC #### [facility] [address] [place] [address] Dr. Shayne Roldan EGFR-AF [place] >60 Normal >=60 [facility] Comment on above: Performed By: #### M G, RENAL, URIC #### [facility] [address] [place] [address] Dr. Shayne Roldan EGFR-NON AF [place] 54 mL/min/1.73m2 Critically low >=60 [facility] Comment on above: Performed By: #### M G, RENAL, URIC #### [facility] [address] [place] [address] Dr. Shayne Roldan Glucose [Mass/Vol] 110 mg/dL Critically high 74-106 T [facility] Comment on above: Performed By: #### M G, RENAL, URIC #### [facility] [address] [place] [address] Dr. Shayne Roldan Phosphate [Mass/Vol] 2.3 mg/dL Critically low 2.6-4.7 [facility] Comment on above: Performed By: #### M G, RENAL, URIC #### [facility] [address] [place] [address] Dr. Shayne Roldan Potassium [Moles/Vol] 3.2 mmol/L Critically low 3.5-5.1 [facility] Comment on above: Performed By: #### M G, RENAL, URIC #### [facility] [address] [place] [address] Dr. Shayne Roldan Sodium [Moles/Vol] 138 mmol/L Normal 136-145 [facility] Comment on above: Performed By: #### M G, RENAL, URIC #### [facility] [address] [place] [address] Dr. Shayne Roldan Urea nitrogen [Mass/Vol] 14.0 mg/dL Normal 7.0-18.0 [facility] Comment on above: Performed By: #### M G, RENAL, URIC #### [facility] [address] [place] [address] Dr. Shayne Roldan PTH INTACTon 08-06-2022 PTH, Intact 40 pg/mL Normal 15-65 [facility] Comment on above: Performed By: #### M G, RENAL, URIC #### [facility] [address] [place] [address] Dr. Shayne Roldan HEMOGRAM AND PLATELon 2021 Hematocrit (Bld) [Volume fraction] 39.8 % Normal 3 6.0-48.0 [facility] Comment on above: Performed By: #### M G, RENAL, URIC #### [facility] [address] [place] [address] Dr. Shayne Roldan Hemoglobin (Bld) [Mass/Vol] 13.4 g/dL Normal 12.0-16. 0 [facility] Comment on above: Performed By: #### M G, RENAL, URIC #### [facility] [address] [place] [address] Dr. Shayne Roldan MCH (RBC) [Entitic mass] 30.5 pg Normal 26.7-34.0 [facility] Comment on above: Performed By: #### M G, RENAL, URIC #### [facility] [address] [place] [address] Dr. Shayne Roldan MCHC (RBC) [Mass/Vol] 33.7 g/dL Normal 29.9-35.2 [facility] Comment on above: Performed By: #### M G, RENAL, URIC #### [facility] [address] [place] [address] Dr. Shayne Roldan MCV (RBC) [Entitic vol] 90.5 fL Normal 81.0-99.0 T [facility] Comment on above: Performed By: #### M G, RENAL, URIC #### [facility] [address] [place] [address] Dr. Shayne Roldan PLT 299 103/ul Normal 150-450 The [facility] Comment on above: Performed By: #### M G, RENAL, URIC #### [facility] [address] [place] [address] Dr. Shayne Roldan RBC 4.40 106/ul Normal 4.20-5.40 [facility] Comment on above: Performed By: #### M G, RENAL, URIC #### [facility] [address] [place] [address] Dr. Shayne Roldan WBC 8.8 103/ul Normal 4.0-11.0 [facility] Comment on above: Performed By: #### M G, RENAL, URIC #### [facility] [address] [place] [address] Dr. Shayne Roldan MAGNESIUMon 08-05-2022 Magnesium [Mass/Vol] 1.5 mg/dL Critically low 1.8-2.4 [facility] Comment on above: Performed By: #### M G, RENAL, URIC #### [facility] [address] [address] [address] Shayne Roldan RENAL FUNCTION PANELon 08-05 Albumin [Mass/Vol] 3.5 g/dL Normal 3.4-5.0 [facility] Comment on above: Performed By: #### M G, RENAL, URIC #### [facility] [address] [address] [address] Shayne Roldan Calcium [Mass/Vol] 8.4 mg/dL Critically low 8.5-10.1 Th [facility] Comment on above: Performed By: #### M G, RENAL, URIC #### [facility] [address] [place] [address] Dr. Shayne Roldan Chloride [Moles/Vol] 101 mmol/L Normal 98-107 [facility] Comment on above: Performed By: #### M G, RENAL, URIC #### [facility] [address] [place] [address] Dr. Shayne Roldan CO2 [Moles/Vol] 29.5 mmol/L Normal 21.0-32.0 [facility] Comment on above: Performed By: #### M G, RENAL, URIC #### [facility] [address] [place] [address] Dr. Shayne Roldan Creatinine [Mass/Vol] 1.04 mg/dL Critically high 0.55-1.02 [facility] Comment on above: Performed By: #### M G, RENAL, URIC #### [facility] [address] [place] [address] Dr. Shayne Roldan EGFR-AF [place] >60 Normal >=60 [facility] Comment on above: Performed By: #### M G, RENAL, URIC #### [facility] [address] [place] [address] Dr. Shayne Roldan EGFR-NON AF [place] 53 mL/min/1.73m2 Critically low >=60 [facility] Comment on above: Performed By: #### M G, RENAL, URIC #### [facility] [address] [place] [address] Dr. Shayne Roldan Glucose [Mass/Vol] 92 mg/dL Normal 74-106 [facility] Comment on above: Performed By: #### M G, RENAL, URIC #### [facility] [address] [place] [address] Dr. Shayne Roldan Phosphate [Mass/Vol] 2.4 mg/dL Critically low 2.6-4.7 The [facility] Comment on above: Performed By: #### M G, RENAL, URIC #### [facility] [address] [place] [address] Dr. Shayne Roldan Potassium [Moles/Vol] 2.8 mmol/L Critically low 3.5-5.1 [facility] Comment on above: Performed By: #### M G, RENAL, URIC #### [facility] [address] [place] [address] Dr. Shayne Roldan Sodium [Moles/Vol] 137 mmol/L Normal 136-145 [facility] Comment on above: Performed By: #### M G, RENAL, URIC #### [facility] [address] [place] [address] Dr. Shayne Roldan Urea nitrogen [Mass/Vol] 10.0 mg/dL Normal 7.0-18.0 [facility] Comment on above: Performed By: #### M G, RENAL, URIC #### [facility] [address] [place] [address] Dr. Shayne Roldan UA RANDOM W/MICROSCOPICon BACTERIA SMALL Abnormal NONE SEEN [facility] Comment on above: Performed By: #### U AMIC #### [facility] [address] [place] [address] Dr. Shayne Roldan Bilirubin Ql (U) Negative Normal NEGATIVE [facility] Comment on above: Performed By: #### U AMIC #### [facility] [address] [place] [address] Dr. Shayne Roldan CAST NONE SEEN Normal NONE SEEN [facility] Comment on above: Performed By: #### U AMIC #### [facility] [address] [place] [address] Dr. Shayne Roldan Clarity (U) CLEAR Normal CLEAR The [facility] Comment on above: Performed By: #### U AMIC #### [facility] [address] [address] [address] Shayne Roldan Color (U) LT. YELLOW Normal YELLOW [facility] Comment on above: Performed By: #### U AMIC #### [facility] [address] [address] [address] Shayne Roldan Crystals LM Nom (Urine sed) NONE SEEN Normal NONE SEE N The [facility] Comment on above: Performed By: #### U AMIC #### [facility] [address] [address] [address] Shayne Roldan Epithelial cells LM Ql (Urine sed) FEW Abnormal N ONE SEEN /RARE The [facility] Comment on above: Performed By: #### U AMIC #### [facility] [address] [place] [address] Dr. Shayne Roldan Glucose Ql (U) Negative Normal NEGATIVE The [facility] Comment on above: Performed By: #### U AMIC #### [facility] [address] [address] [address] Shayne Roldan Hemoglobin Ql (U) Negative Normal NEGATIVE The [facility] Comment on above: Performed By: #### U AMIC #### [facility] [address] [address] [address] Shayne Roldan Ketones Ql (U) Negative Normal NEGATIVE The [facility] Comment on above: Performed By: #### U AMIC #### [facility] [address] [address] [address] Shayne Roldan LEUKOCYTES TRACE Abnormal NEGATIVE [facility] Comment on above: Performed By: #### U AMIC #### [facility] [address] [address] [address] Shayne Roldan MUCOUS NONE SEEN Normal NONE SEEN The [facility] Comment on above: Performed By: #### U AMIC #### [facility] [address] [address] [address] Shayne Roldan Nitrite Ql (U) Negative Normal NEGATIVE The [facility] Comment on above: Performed By: #### U AMIC #### [facility] [address] [place] [address] Dr. Shayne Roldan pH (U) 6.0 [pH] Normal 5-9 [facility] Comment on above: Performed By: #### U AMIC #### [facility] [address] [place] [address] Dr. Shayne Roldan RBC NONE SEEN Abnormal 0-2 [facility] Comment on above: Performed By: #### U AMIC #### [facility] [address] [place] [address] Dr. Shayne Roldan SPEC GRAVITY <=1.005 Abnormal 1.005-<=1.025 The [facility] Comment on above: Performed By: #### U AMIC #### [facility] [address] [place] [address] Dr. Shayne Roldan UA PROTEIN Negative Normal NEGATIVE/ TRACE The [facility] Comment on above: Performed By: #### U AMIC #### [facility] [address] [place] [address] Dr. Shayne Roldan Urobilinogen Qn (U) 0.2 {Rogelio'U}/dL Normal 0.2 - 1. 0 The [facility] Comment on above: Performed By: #### U AMIC #### [facility] [address] [place] [address] Dr. Shayne Roldan WBC 5-10 Abnormal NONE SEEN The [facility] Comment on above: Performed By: #### U AMIC #### [facility] [address] [place] [address] Dr. Shayne Roldan URIC ACID SERUMon 08-05-2022 Urate [Mass/Vol] 6.5 mg/dL Critically high 2.6-6.0 The [facility] Comment on above: Performed By: #### M G, RENAL, URIC #### [facility] [address] [place] [address] Dr. Shayne Roldan URINE T PROTEIN CREAT RATIOo n 08-05-2022 Protein (U) [Mass/Vol] 4.8 mg/dL Normal <=12.0 [facility] Comment on above: Performed By: #### U RTPCR #### [facility] [address] [address] [address] Shayne Roldan UR PROT CREAT RAT 0.09 Normal [facility] Comment on above: Performed By: #### U RTPCR #### [facility] [address] [address] [address] Shayne Roldan URINE CREAT 52.65 mg/dL Normal 20.00-300.00 [facility] Comment on above: Performed By: #### U RTPCR #### [facility] [address] [address] [address] Shayne Roldan VITAMIN D 25 OHon 08-05-2022 VIT D 25-OH 38.9 ng/mL Normal [facility] Comment on above: Performed By: #### M G, RENAL, URIC #### [facility] [address] [place] [address] Dr. Shayne Rodlan VIT D RANGES SEE BELOW [facility] Comment on above: Result Comment: <20 ng/mL Vit D deficient 20 - <30 ng/mL Vit D insufficient 30 - 100 ng/mL Vit D sufficient >100 ng/mL Potential Toxicity Performed By: #### M G, RENAL, URIC #### [facility] [address] [place] [address] Dr. Shayne Roldan IMMUNOGLOBULINS IGA/IGM/IGG/ IGE QUANTITAon 07-12-2022 Immunoglobulin A, Qn, Serum 295 mg/dL Normal 87-352 [facility] Comment on above: Result Comment: Perf ormed at: CB Performed By: #### M G, RENAL, URIC #### [facility] [address] [place] [address] Dr. Shayne Roldan Immunoglobulin E, Total 32 IU/mL Normal 6-495 T [facility] Comment on above: Result Comment: Perf ormed at: BN Performed By: #### M G, RENAL, URIC #### [facility] [address] [place] [address] Dr. Shayne Roldan Immunoglobulin G, Qn, Serum 729 mg/dL Normal 586-1602 [facility] Comment on above: Result Comment: Perf ormed at: CB Performed By: #### M G, RENAL, URIC #### [facility] [address] [address] [address] Shayne Roldan Immunoglobulin M, Qn, Serum 75 mg/dL Normal 26-217 [facility] Comment on above: Result Comment: Perf ormed at: CB Performed By: #### M G, RENAL, URIC #### [facility] [address] [address] [address] Shayne Roldan Abstracton 07-08-2022 Abstract [id number] Nell Champion Meng 1955 F Date Provider Department Center 07/08/2022 JOHANNA MEDINA [facility] Family History Problem Relation Age of Onset Heart failure Mother Heart disease Father Family Status - Relation Status Age at Mother Father Normal [facility] CBC AUTO DIFFon 07-05-2022 BASO # 0.1 103/ul Normal 0.0-0.1 [facility] Comment on above: Performed By: #### M G, RENAL, URIC #### [facility] [address] [address] [address] Shayne Roldan Basophils/100 WBC (Bld) 0.7 % Normal 0.2-2.0 [facility] Comment on above: Performed By: #### M G, RENAL, URIC #### [facility] [address] [address] [address] Shayne Roldan EO # 0.4 103/ul Normal 0.0-0.7 [facility] Comment on above: Performed By: #### M G, RENAL, URIC #### [facility] [address] [address] [address] Shayne Roldan Eosinophils/100 WBC (Bld) 4.4 % Normal 0.9-7.0 [facility] Comment on above: Performed By: #### M G, RENAL, URIC #### [facility] [address] [address] [address] Shayne Roldan Erythrocyte distribution wid th (RBC) [Ratio] 12.6 % Normal 11.0-15.0 [facility] Comment on above: Performed By: #### M G, RENAL, URIC #### [facility] [address] [place] [address] Dr. Shayne Roldan Hematocrit (Bld) [Volume fraction] 40.2 % Normal 3 6.0-48.0 [facility] Comment on above: Performed By: #### M G, RENAL, URIC #### [facility] [address] [place] [address] Dr. Shayne Roldan Hemoglobin (Bld) [Mass/Vol] 13.6 g/dL Normal 12.0-16. 0 The [facility] Comment on above: Performed By: #### M G, RENAL, URIC #### [facility] [address] [place] [address] Dr. Shayne Roldan IG # 0.07 10e3/ul Critically high 0.00-0.03 The [facility] Comment on above: Performed By: #### M G, RENAL, URIC #### [facility] [address] [place] [address] Dr. Shayne Roldan IG % 0.8 % Critically high 0.0-0.5 [facility] Comment on above: Performed By: #### M G, RENAL, URIC #### [facility] [address] [place] [address] Dr. Shayne Roldan LYMPH # 2.3 103/ul Normal 1.2-3.8 [facility] Comment on above: Performed By: #### M G, RENAL, URIC #### [facility] [address] [place] [address] Dr. Shayne Roldan Lymphocytes/100 WBC (Bld) 24.7 % Normal 20.5-60.0 The [facility] Comment on above: Performed By: #### M G, RENAL, URIC #### [facility] [address] [place] [address] Dr. Shayne Roldan MANUAL DIFF REQ NO Normal [facility] Comment on above: Performed By: #### M G, RENAL, URIC #### [facility] [address] [place] [address] Dr. Shayne Roldan MCH (RBC) [Entitic mass] 30.7 pg Normal 26.7-34.0 [facility] Comment on above: Performed By: #### M G, RENAL, URIC #### [facility] [address] [place] [address] Dr. Shayne Roldan MCHC (RBC) [Mass/Vol] 33.8 g/dL Normal 29.9-35.2 [facility] Comment on above: Performed By: #### M G, RENAL, URIC #### [facility] [address] [address] [address] Shayne Roldan MCV (RBC) [Entitic vol] 90.7 fL Normal 81.0-99.0 [facility] Comment on above: Performed By: #### M G, RENAL, URIC #### [facility] [address] [place] [address] Dr. Shayne Roldan MONO # 0.7 103/ul Normal 0.3-0.8 [facility] Comment on above: Performed By: #### M G, RENAL, URIC #### [facility] [address] [place] [address] Dr. Shayne Roldan Monocytes/100 WBC (Bld) 7.7 % Normal 1.7-12.0 [facility] Comment on above: Performed By: #### M G, RENAL, URIC #### [facility] [address] [place] [address] Dr. Shayne Roldan NEUT # 5.7 103/ul Normal 1.4-6.5 [facility] Comment on above: Performed By: #### M G, RENAL, URIC #### [facility] [address] [place] [address] Dr. Shayne Roldan Neutrophils/100 WBC (Bld) 61.7 % Normal 43.0-75.0 [facility] Comment on above: Performed By: #### M G, RENAL, URIC #### [facility] [address] [place] [address] Dr. Shayne Roldan Platelet mean volume (Bld) [Entitic vol] 8.8 fL Critically low 9.5-13.5 The [facility] Comment on above: Performed By: #### M G, RENAL, URIC #### [facility] [address] [place] [address] Dr. Shayne Roldan PLT 279 103/ul Normal 150-450 [facility] Comment on above: Performed By: #### M G, RENAL, URIC #### [facility] [address] [place] [address] Dr. Shayne Roldan RBC 4.43 106/ul Normal 4.20-5.40 The [facility] Comment on above: Performed By: #### M G, RENAL, URIC #### [facility] [address] [place] [address] Dr. Shayne Roldan WBC 9.1 103/ul Normal 4.0-11.0 [facility] Comment on above: Performed By: #### M G, RENAL, URIC #### [facility] [address] [place] [address] Dr. Shayne Roldan Covid-19 PCR ([facility])on SARS-CoV-2 (COVID-19) RNA KAYLEE+probe Ql (Unsp spec) Not detected Normal NOT DETECTED The [facility] Comment on above: Result Comment: This test is not yet approved or cleared by the [place] FDA. When there are no FDA-approved or cleared tests available, and other criteria are met, FDA can make tests available under an emergency access mechanism called an Emergency Use Authorization (EUA). The EUA for this test is supported by the [place] of Health and Human Service's (HHS's) declaration that circumstances exist to justify the emergency use of in vitro diagnostics for the detection and/or diagnosis of the virus that causes COVID-19. This EUA will remain in effect (meaning this test can be used) for the duration of the COVID-19 declaration justifying emergency of IVDs, unless it is terminated or revoked by FDA (after which the test may no longer be used). When diagnostic testing is negative, the possibility of a false negative should be considered in the context of a patient's recent exposures and the presence of clinical signs and symptoms consistent with SARS-CoV-2. Performed By: #### M G, RENAL, URIC #### [facility] [id number] Shayne Roldan XR CHEST 2 Von 06-08-2022 XR CHEST 2 V EXAM: CHEST 2 VIEWS HISTORY: Disorder of respiratory system TECHNIQUE: PA and lateral views chest. COMPARISON: None. FINDINGS: The lungs are clear. There is no focal lung consolidation, pleural effusion or pneumothorax. Pulmonary vasculature is within normal limits. Thoracic aorta is mildly tortuous. Heart size within normal limits. There are degenerative changes of the spine. IMPRESSION: 1. No acute cardiopulmonary disease. Electronically authenticated by: NARDA LONDONO Date: 2022-06-08 19:58 Normal The [facility] Covid-19 PCR ([facility])on SARS-CoV-2 (COVID-19) RNA KAYLEE+probe Ql (Unsp spec) Not detected Normal NOT DETECTED The [facility] Comment on above: Result Comment: This test is not yet approved or cleared by the [place] FDA. When there are no FDA-approved or cleared tests available, and other criteria are met, FDA can make tests available under an emergency access mechanism called an Emergency Use Authorization (EUA). The EUA for this test is supported by the [place] of Health and Human Service's (HHS's) declaration that circumstances exist to justify the emergency use of in vitro diagnostics for the detection and/or diagnosis of the virus that causes COVID-19. This EUA will remain in effect (meaning this test can be used) for the duration of the COVID-19 declaration justifying emergency of IVDs, unless it is terminated or revoked by FDA (after which the test may no longer be used). When diagnostic testing is negative, the possibility of a false negative should be considered in the context of a patient's recent exposures and the presence of clinical signs and symptoms consistent with SARS-CoV-2. Performed By: #### C VDTBH #### [facility] [address] [place], [place] [address] Dr. Shayne Roldan DEXA AXIALon 03-01-2022 DEXA AXIAL [facility] Department of Radiology [address] [place] [id number] Patient Name: DIANA CHAMPION : 1955 Sex: F Age: Race: White Pt. Location: Patient Status: D Ordered Date: 02/24/2022 1:25:00 PM Completed Date: 03/01/2022 09:46 AM Requesting Provider: CINDA ANTONIO Attending Provider: Report Copy To: Signs & Symptoms: Z78.0 Asymptomatic menopausal state I10 History: [place] Comments: Exam: DEXA AXIAL DEXA AXIAL 03/01/2022 9:46 AM CLINICAL INDICATIONS: Osteoporosis screening. COMPARISON: None Dual X-ray Absorptiometry (DEXA) was performed. Left forearm: Radius 33%: Bone density is 0.98 gm/cm2. T-score is 1.2. Z-score is 2.6. RIGHT FEMORAL NECK: Bone density is 0.89 gm/cm2. T-score is -1.0. Z-score is -0.3. LEFT HIP: Bone density is 0.98 gm/cm2. T-score is -0.2. Z-score is 0.2. If this patient is not currently on therapy, the 10-year probability for a major osteoporotic fracture (utilizing FRAX) is 7.1% and for a hip fracture is 0.5%. (According to WHO, therapy is indicated if 10-year risk for major osteoporotic fracture is greater than or equal to 20% or the 10-risk for a hip fracture is greater than or equal to 3%.) IMPRESSION: 1. Normal bone mineral density by the WHO criteria (using T-scores). WORLD HEALTH ORGANIZATION (WHO) GUIDELINES: T-score of -1 or greater = Normal T-score less than -1.0 but greater than -2.5 = Osteopenia T-score of -2.5 or less = Osteoporosis In patients, who are osteopenic or osteoporotic, hormonal therapy, other medical therapy, dietary supplementation, and weight bearing exercise may prevent further bone mineral loss. Repeat DEXA testing may be indicated but is based on individual patient clinical characteristics. Electronically signed: Luzma Fernandez. Transcribed by: [email or web address], User Resident: Electronically Signed by: LUZMA FERNANDEZ @ 03/02/2022 01:07 PM Normal The [facility] SCOLIOSIS 2 [facility] 02-24-2022 SCOLIOSIS 2 [facility] Department of Radiology [address] [place] [id number] Patient Name: DIANA CHAMPION : 1955 Sex: F Age: Race: White Pt. Location: Patient Status: D Ordered Date: 02/24/2022 1:25:00 PM Completed Date: 02/24/2022 01:44 PM Requesting Provider: CINDA ANTONIO Attending Provider: Report Copy To: Signs & Symptoms: M43.10 Spondylolisthesis, site unspecified I10 History: Comments: Views (X-RAY, SCOLIOSIS): PA, Lateral evaluate Exam: SCOLIOSIS 2 [facility] Scoliosis. Worsening pain. Frontal and lateral thoracolumbar spine IMPRESSION: 1. Diffuse disc disease and facet arthritis. Right convex mid lumbar curvature measuring 16 degrees. Interbody fusion hardware lower lumbar spine. Electronically signed: Hugo Lynn. Transcribed by: [email or web address], User Resident: Electronically Signed by: HUGO LYNN @ 02/26/2022 11:07 AM Normal The [facility] Comment on above: Order Comment: Views (X-RAY, SCOLIOSIS): PA, Lateral evaluate CT LUMBAR SPINE W CONTRASTon 01-24-2022 CT LUMBAR SPINE W CONTRAST [facility] Department of Radiology [address] [place] [id number] Patient Name: DIANA CHAMPION : 1955 Sex: F Age: Race: White Pt. Location: Patient Status: D Ordered Date: 01/09/2022 9:00:00 AM Completed Date: 01/24/2022 03:26 PM Requesting Provider: JOO LINN Attending Provider: JOO LINN Report Copy To: UNKNOWN, PHYSICIAN Signs & Symptoms: M54.16 Radiculopathy, lumbar region I10 History: [place] Comments: , CT MYELOGRAM>PAPER WORK IN CHART Exam: CT LUMBAR SPINE W CONTRAST CT LUMBAR SPINE W CONTRAST 01/24/2022 3:26 PM CLINICAL INDICATIONS:M54.16 Radiculopathy, lumbar region I10 TECHNOLOGIST COMMENTS: CT lumbar post myelogram today, hx. spine surgery, dx. lumbar radiculopathy QUESTION FOR RADIOLOGIST: , CT MYELOGRAM>PAPER WORK IN CHART PROTOCOL: Volume acquisition with MIP, multiplanar reformats and 3D reconstructed images were generated on an independent workstation and reviewed to further define anatomy and possible pathology. TECHNIQUE: Multi detector CT axial slices of the lumbar spine are obtained without IV contrast. Volumetric acquisition sagittal, coronal, and 3-D reconstructions were performed and reviewed on a separate workstation. All CT scans at this facility use dose modulation, iterative reconstruction, and/or weight based dosing when appropriate to reduce radiation dose to as low as reasonably achievable. COMPARISON: None FINDINGS: Images acquired after intrathecal administration of contrast, refer to separately reported lumbar myelogram injection for detailed intraprocedural findings. Posterior jarek pedicle screw fixation L5-S1, associated body cage device and laminectomy. Preserved lumbar vertebral body heights. Broad levoconvex extra convex lumbar curvature, apex at L2. Subtle 2 to 3 mm retrolisthesis L1 on L2, grade 1 anterolisthesis L4 on L5. Excellent intrathecal opacification. Conus terminates at L1-2. T12-L1: Mild diffuse disc bulge, minimal focal thecal sac narrowing. Mild bilateral neural foraminal narrowing. L1-L2: Diffuse disc bulge, subtle retrolisthesis. Ligamentum flavum thickening. Marginal disc osteophyte extends into the left greater than right foraminal extraforaminal foraminal regions. Mild to moderate focal thecal sac narrowing. Asymmetric crowding left subarticular zone. Moderate to severe left, mild right neural foraminal narrowing. L2-L3: Diffuse disc bulge, marginal disc osteophyte extends into the left greater the right foraminal and extra foraminal regions. Ligament of flavum thickening. Moderate focal thecal sac narrowing. Asymmetric crowding left subarticular zone. Moderate left, mild right neural foraminal narrowing. Mild caudal root redundancy above and below this level. Hypertrophic posterior facet arthropathy. L3-L4: Diffuse disc bulge, marginal disc osteophyte extends into the foraminal extraforaminal regions bilaterally. Ligamentum flavum thickening. Moderate focal thecal sac narrowing. Mild/moderate left, moderate right, neural foraminal narrowing. Asymmetric right hypertrophic posterior facet arthropathy. L4-L5: Subtle diffuse disc bulge and marginal disc osteophyte extends the foraminal extra foraminal regions bilaterally. No substantial focal thecal sac narrowing. Mild/moderate bilateral neural foraminal narrowing. L5-S: Interbody cage device, posterior fixation, no substantial focal thecal sac or neural foraminal narrowing. Diffuse hepatic steatosis. Fatty replacement lower lumbar paraspinal musculature. Otherwise, unremarkable paraspinal soft tissues. IMPRESSION: Multilevel degenerative changes, level by level assessment detailed in the body the report. Of note thecal sac narrowing is most noted, moderate, at L2-3, L3-4. Neural foraminal narrowing most noted, moderate to severe, at left L1-2. Electronically signed: Gaurang Lawrence. Transcribed by: [email or web address], User Resident: Electronically Signed by: GAURANG LAWRENCE @ 01/26/2022 08:58 AM Normal [facility] Comment on above: Order Comment: , CT MYELOGRAM>PAPER WORK IN CHART LUMBAR MYELOGRAMon LUMBAR MYELOGRAM [facility] Department of Radiology [address] [place] [id number] Patient Name: DIANA CHAMPION : 1955 Sex: F Age: Race: White Pt. Location: Patient Status: O Ordered Date: 01/09/2022 9:00:00 AM Completed Date: 01/24/2022 02:37 PM Requesting Provider: JOO LINN Attending Provider: OJO LINN Report Copy To: UNKNOWN, PHYSICIAN Signs & Symptoms: M54.16 Radiculopathy, lumbar region I10 History: Jessica Is patient on thinners? 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 Marlow/Abel used 0.58 minutes of fluoro time and 12 ml's of Omnipaque 180 for a Lumbar myelogram Images: 06 Dose: 63 mGy QUESTION FOR THE RADIOLOGIST: , CT MYELOGRAM> PAPER WORK SCANNED IN CHART , CT MYELOGRAM> PAPER WORK SCANNED IN CHART , , , Ordering Provider - JOO LINN MD , INFORMED CONSENT: Reason for procedure was discussed with the patient. The procedure expectations risks benefits options and alternatives were discussed. All the questions were answered. The patient understood that results cannot be guaranteed. The procedure is indicated and risks are acceptable. Consent was obtained. Timeout: Menan protocol timeout verification performed. PROCEDURE: Estimated blood loss: Minimal Fluoroscopy time: 0.58 minutes Number of fluoroscopic images:6 CONTRAST: Contrast: OMNIPAQUE 180 (LOCM), 12 milliliter, Intraspinal FINDINGS: After the consent was obtained and time out was performed, the patient was prepped and draped in the usual sterile fashion. Utilizing fluoroscopic guidance, L3-L4 interspace was selected for the procedure. 1 percent lidocaine was used for local anesthesia. A 20 gauge needle was placed into the subarachnoid space under fluoroscopic guidance. The location of the needle was confirmed by lateral projection prior to injection of the contrast. Approximately 12 mL of Omnipaque 180 was injected and presence of the contrast in the intrathecal space was documented by AP, lateral, and bilateral obliques views. The patient tolerated the procedure well and was sent for CT lumbar myelogram. Dr. Marlow was present for the entire procedure. IMPRESSION: * Successful lumbar spine myelogram. Please see separate CT lumbar spine report for detailed findings. Approved by:Debbie Reneuo01/24/2022 3:51 PM. I, Greg Marlow,have reviewed the image(s) and agree with the findings in this report. Electronically signed: Greg Marlow. Transcribed by: [email or web address], User Resident: DEBBIE JI Electronically Signed by: GREG MARLOW @ 01/24/2022 04:07 PM I personally read this/these film(s) with this resident Normal [facility] Comment on above: Order Comment: , CT MYELOGRAM> PAPER WORK SCANNED IN CHART , CT MYELOGRAM> PAPER WORK SCANNED IN CHART , , , Ordering Provider - JOO LINN MD , HIP LEFT 1 OR 2 VWS WITH PEL VISon 01-06-2022 HIP LEFT 1 OR 2 VWS WITH PELVIS [facility] Department of Radiology [address] [place] [id number] Patient Name: DIANA CHAMPION : 1955 Sex: F Age: Race: White Pt. Location: Patient Status: D Ordered Date: 12/21/2021 10:45:00 AM Completed Date: 01/06/2022 01:24 PM Requesting Provider: JOO LINN Attending Provider: JOO LINN Report Copy To: Signs & Symptoms: Z96.642 Presence of left artificial hip joint I10 History: Jessica Comments: Evaluate Exam: HIP LEFT 1 OR 2 VWS WITH PELVIS HIP LEFT 1 OR 2 VWS WITH PELVIS HISTORY: Hip replacement, follow-up. COMPARISON: None. IMPRESSION: 1. Redemonstrated left hip prosthesis without visible complication. 2. Advanced right hip arthritis without significant change with advanced joint space narrowing. Unchanged lumbosacral fusion hardware. Electronically signed: Joe Matthew. Transcribed by: [email or web address], User Resident: Electronically Signed by: JOE MATTHEW @ 01/09/2022 04:45 PM Normal [facility] Comment on above: Order Comment: Evalu ate Vital Signs Date Time Vital Sign Value Performing Clinician Facility 08-17-2023 09:20-0400 Body height 165.1 cm Herberth Joana Other [facility] Other 08-17-2023 09:20-0400 Body mass index (BMI) [Ratio] 38.1 kg/m2 Herberth Joana Other [facility] Other 08-17-2023 09:20-0400 Body temperature 98.8 [degF] Herberth Joana Other [facility] Other 08-17-2023 09:20-0400 Body weight 103.87 kg Herberth Joana Other [facility] Other 08-17-2023 09:20-0400 Diastolic blood pressure 85 mm[Hg] Herberth Joana Other [facility] Other 08-17-2023 09:20-0400 Respiratory rate 18 /min Herberth Joana Other [facility] Other 08-17-2023 09:20-0400 SaO2% (BldA) [Mass fraction] 94 % Herberth Joana Other [facility] Other 08-17-2023 09:20-0400 Systolic blood pressure 151 mm[Hg] Herberth Joana Other [facility] Other 03-02-2023 10:00-0400 Body height 165.1 cm Herberth Joana Other [facility] Other 03-02-2023 10:00-0400 Body mass index (BMI) [Ratio] 37.29 kg/m2 Herberth Joana Other [facility] Other 03-02-2023 10:00-0400 Body temperature 98.9 [degF] Herberth Joana Other [facility] Other 03-02-2023 10:00-0400 Body weight 101.65 kg Herberth Joana Other [facility] Other 03-02-2023 10:00-0400 Diastolic blood pressure 76 mm[Hg] Herberth Joana Other [facility] Other 03-02-2023 10:00-0400 Respiratory rate 20 /min Herberth Joana Other [facility] Other 03-02-2023 10:00-0400 SaO2% (BldA) [Mass fraction] 96 % Herberth Joana Other [facility] Other 03-02-2023 10:00-0400 Systolic blood pressure 136 mm[Hg] Herberth Joana Other [facility] Other 12-08-2022 09:30-0500 Diastolic blood pressure 59 mm[Hg] MD Shaikh Ohara Work Phone: [facility] 12-08-2022 09:30-0500 Heart rate 55 /min MD Shaikh Ohara Work Phone: [facility] 12-08-2022 09:30-0500 Respiratory rate 16 /min MD Shaikh Ohara Work Phone: [facility] 12-08-2022 09:30-0500 SaO2% (BldA) [Mass fraction] 96 % MD Shaikh Ohara Work Phone: [facility] 12-08-2022 09:30-0500 Systolic blood pressure 112 mm[Hg] MD Shaikh Ohara Work Phone: [facility] 12-08-2022 06:54-0500 Body height 162.56 cm MD Shaikh Ohara Work Phone: [facility] 12-08-2022 06:54-0500 Body temperature 98.2 [degF] MD Shaikh Ohara Work Phone: [facility] 12-08-2022 06:54-0500 Body weight 104.32 kg MD Shaikh Ohara Work Phone: [facility] 08-09-2022 11:00-0400 Body height 165.1 cm Herberth Joana Other [facility] Other 08-09-2022 11:00-0400 Body mass index (BMI) [Ratio] 37.87 kg/m2 Herberth Joana Other [facility] Other 08-09-2022 11:00-0400 Body temperature 97.2 [degF] Herberth Joana Other [facility] Other 08-09-2022 11:00-0400 Body weight 103.24 kg Herberth Joana Other [facility] Other 08-09-2022 11:00-0400 Diastolic blood pressure 88 mm[Hg] Herberth Joana Other [facility] Other 08-09-2022 11:00-0400 Respiratory rate 20 /min Herberth Joana Other [facility] Other 08-09-2022 11:00-0400 SaO2% (BldA) [Mass fraction] 95 % Herberth Joana Other [facility] Other 08-09-2022 11:00-0400 Systolic blood pressure 133 mm[Hg] Herberth Joana Other [facility] Other 11-17-2021 10:40-0500 Body height 165.1 cm Herberth Joana Other [facility] Other 11-17-2021 10:40-0500 Body mass index (BMI) [Ratio] 37.97 kg/m2 Herberth Joana Other [facility] Other 11-17-2021 10:40-0500 Body temperature 97.8 [degF] Herberth Joana Other [facility] Other 11-17-2021 10:40-0500 Body weight 103.51 kg Herberth Joana Other [facility] Other 11-17-2021 10:40-0500 Diastolic blood pressure 70 mm[Hg] Herberth Joana Other [facility] Other 11-17-2021 10:40-0500 Respiratory rate 18 /min Herberth Joana Other [facility] Other 11-17-2021 10:40-0500 SaO2% (BldA) [Mass fraction] 94 % Herberth Joana Other [facility] Other 11-17-2021 10:40-0500 Systolic blood pressure 130 mm[Hg] Herberth Joana Other [facility] Other 08-30-2021 13:15-0400 Body height 165.1 cm Rena Ginty Other [facility] Other 08-30-2021 13:15-0400 Body mass index (BMI) [Ratio] 36.61 kg/m2 Rena Ginty Other [facility] Other 08-30-2021 13:15-0400 Body temperature 98.7 [degF] Rena Ginty Other [facility] Other 08-30-2021 13:15-0400 Body weight 99.79 kg Rena Ginty Other [facility] Other 08-30-2021 13:15-0400 SaO2% (BldA) [Mass fraction] 90 % Rena Ginty Other [facility] Other Encounters Encounter Date Encounter Type Care Provider Facility Start: 10-09-2023 End: 10-10-2023 ambulatory Jayshree Vargas MD Facility: [facility] Start: 10-04-2023 End: 10-04-2023 ambulatory SHAIKH LEV Not Available Start: 09-07-2023 End: 09-07-2023 ambulatory Herberth Joana Other [facility] Other Start: 09-07-2023 Telephone encounter Herberth Joana [facility] Start: 08-28-2023 End: 08-28-2023 ambulatory Herberth Joana Other [facility] Other Start: 08-28-2023 Telephone encounter Herberth Joana [facility] Start: 08-21-2023 End: 08-22-2023 ambulatory Jayshree Vargas MD Facility:[facility] Start: 08-17-2023 End: 08-17-2023 ambulatory Herberth Joana Other [facility] Other Start: 08-17-2023 Office outpatient visit 25 minutes Herberth Joana [facility] [place] Start: 05-08-2023 End: 05-08-2023 ambulatory HETAL [facility] Start: 04-04-2023 End: 04-04-2023 ambulatory SHAIKH Dimitry OHARA Facility:[facility] Start: 03-24-2023 End: 03-25-[address] STEPH GRANADOS Facility:[facility] Start: 03-23-2023 ambulatory [facility] Start: 03-02-2023 End: 03-02-2023 ambulatory Herberth Joana Other [employer] Other Start: 03-02-2023 Office outpatient visit 25 minutes Herberth Joana [facility] [place] Start: 02-25-2023 End: 02-26-2023 ambulatory HERBERTH JOANA Facility:[facility] Start: 02-22-2023 End: 02-23-2023 ambulatory BO MCCLAIN . Facility:[facility] Start: 12-15-2022 End: 12-16-[address] JACK HALL . Facility:[facility] Start: 12-08-2022 End: 12-08-2022 ambulatory Shaikh Lev Facility:[facility] Start: 12-08-2022 End: 12-08-2022 Admission to same day surgery center MD Shaikh Ohara Work Phone: [facility] Work Phone: Start: 12-08-2022 End: 12-08-2022 ambulatory MD Shaikh Ohara Work Phone: [facility] Work Phone: Start: 11-11-2022 End: 11-11-[address] JACK HALL . Facility:[facility] Start: 11-09-2022 End: 11-09-2022 ambulatory Gilma Trent Other [facility] Other Start: 11-09-2022 Telephone encounter Azkatherine Ruelashous [facility] Start: 08-19-2022 End: 08-20-2022 ambulatory HERBERTH JOANA Facility:[facility] Start: 08-09-2022 End: 08-09-2022 ambulatory Herberth Joana Other [facility] Other Start: 08-09-2022 Office outpatient visit 10 minutes Herberth Joana [facility] Start: 08-09-2022 Telephone encounter Herberth Joana [facility] Start: 08-05-2022 Telephone encounter Herberth Joana [facility] Start: 08-05-2022 End: 08-06-2022 ambulatory HERBERTH JOANA [employer] Other Start: 07-08-2022 End: 07-08-2022 ambulatory Gato Domingo Other [facility] Other Start: 07-08-2022 Telephone encounter Gato Cesar ck [facility] Start: 07-05-2022 End: 07-06-2022 ambulatory SHAIKH Dimitry OHARA Facility:[facility] Start: 06-08-2022 End: 06-09-2022 ambulatory SHAIKH Dimitry OHARA Facility:[facility] Start: 06-07-2022 End: 06-07-2022 ambulatory SHAIKH Dimitry OAHRA Facility:[facility] Start: 01-24-2022 End: 01-25-2022 ambulatory PHYSICIAN UNKNOWN Facility:[facility] Start: 11-17-2021 End: 11-17-2021 ambulatory Herberth Joana Other [facility] Other Start: 11-17-2021 Office outpatient visit 15 minutes Herberth Joana [facility] Start: 08-30-2021 Office outpatient visit 15 minutes Rena Ginty [facility] [place] Start: 09-11-2020 End: 09-11-2020 Chart abstracting Miguelito Holleypili Work Phone: Hematology/Oncology Start: 09-11-2020 End: 09-11-2020 Patient encounter procedure External Provider [facility] Start: 09-11-2020 Results Only External Provider [facility] Start: 09-30-2019 End: 09-30-2019 Patient encounter procedure [facility] [place] Start: 07-07-2017 End: 07-07-2017 Admission to day surgery [facility] Start: 05-24-2004 Evaluation and management of inpatient [facility] [place] Start: 04-26-2004 Evaluation and management of inpatient [facility] [place] Procedures Date Procedure Procedure Detail Performing Clinician Start: 12-08-2022 Colonoscopy MD Shaikh Ohara Work Phone: Start: 09-11-2020 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 Surgical Rn al Provider Start: 09-11-2020 EXTERNAL LAB External P rovider Start: 09-11-2020 EXTERNAL PROCEDURE Exte rnal Provider Start: 09-30-2019 Ultrasonography of b ilateral kidneys Steph Collier Plan of Treatment Date Care Activity Detail Author Start: 12-08-2022 [facility] Start: 07-07-2020 Influenza vaccination INFLUENZA (#1) [facility] Start: 2006 SHINGRIX VACCINE (1 of 2) SHINGRIX VACCINE (1 of 2) [facility] Start: 2006 Tuberculosis screening COLORECTAL CANCER SCREENING,SEE MODIFIER [facility] Start: 2001 DIABETES SCREEN DIABETES SCREEN [facility] Start: 2001 LIPID SCREEN LIPID SCREEN [facility] Start: 1996 Mammography MAMMOGRAM [facility] Start: 1986 HPV TESTING HPV TESTING [facility] Start: 1977 PAP TESTING PAP TESTING [facility] Start: 1975 Urine microalbumin profile DTAP,TDAP,TD (1 - Tdap) [facility] Start: 1974 HEPATITIS C SCREENING HEPATITIS C SCREENING [facility] Start: 1974 HIV SCREENING HIV SCREENING [facility] Patient Education Colon Polypect shahram Hemorrhoids (DC) Diverticulosis (DC) [facility] Work Phone: [facility] Immunizations Immunization Date Immunization Notes Care Provider Fa cility 07-18-2018 Depo-Medrol 40 mg Rena Gint y Other [facility] Other 01-31-2018 Depo-Medrol 40 mg Rena Gint y Other [facility] Other 08-09-2017 influenza, seasonal, injectable, preservative free Rena Ginty Other [facility] Other Payers Date Payer Category Payer Unknown 2022 Self-pay [id number] 2021 Medicare [id number] 2020 Medicaid [id number] 2019 Medicaid MEDICAID [facility] MEDICAID [id number] 2019-Present Medicaid [id number] 2016 Medicare MEDICARE MEDICAR E A AND B [id number] 2016-Present [place], [place] Medicare [id number] 1959 Unknown [id number] 1955 Unknown [id number] 1955 Unknown [id number] [id number] 1955 Unknown [id number] [id number] 1955 Unknown [id number] [id number] 1955 Unknown [id number] [id number] 1955 Unknown [id number] [id number] 1955 Unknown [id number] 2.16.840.1.031881.3.579.2.593 1955 Unknown [id number] 2.16.840.1.173739.3.579.2.593 1955 Unknown [id number] 2.16.840.1.345582.3.579.2.593 1955 Unknown [id number] 2.16.840.1.005557.3.579.2.593 1955 Unknown [id number] 2.16.840.1.028819.3.579.2.593 1955 Unknown [id number] [id number] 1955 Unknown [id number] [id number] 1955 Unknown [id number] 2.16.840.1.950006.3.579.2.196 1955 Unknown [id number] [id number] Medicare [id number] Unknown HCAP/HFA/FAP Active [id number] Unknown [id number] Social History Date Type Detail Facility Tobacco smoking stat [facility] Unknown if ever smoked [facility] Start: 1955 Sex Assigned At Female F [facility] Start: 09-11-2020 End: 12-08-2022 Tobacco smoking status NHIS Never smoker [facility] Start: 09-11-2020 Tobacco use and exposure Never used [facility] Start: 09-11-2020 Alcohol intake Lifetime non-d my (finding) [facility] Start: 09-11-2020 History SDOH Alcohol Frequency 1 [facility] Sex Assigned At Not on file [facility] Sex Assigned At Sex Assigned At Bir th [facility] Other Goals Date Patient Goal Desired Activity /State Clinical Notes 08-30-2021 to 09-07-2023 Note Date & Type Note Facility 09-07-2023 Evaluation note Encounter Date Diagnosis Assessment Notes Sep, Hypomagnesemia (ICD-10 - E83.42) [facility] [employer] Other 10-23-2023 Evaluation note* Encounter Date Diagnosis Assessment Notes Treatment Notes Treatment Clinical Notes Aug, Nico hy kid w cr kid I-IV (ICD-10 - I12.9) [facility] [employer] Other 10-12-2023 Evaluation note* Encounter Date Diagnosis Assessment Notes Treatment Notes Treatment Clinical Notes Aug, Nico hy kid w cr kid I-IV (ICD-10 - I12.9) Blood pressure is uncontrolled. She appears to be euvolemic. Increase losartan 100 mg daily Aug, Chronic kidney disea se, stage III (moderate) (ICD-10 - N18.30) She has a CKD due to the longstanding hypertension and partial recovery from JEANNE. Her baseline serum creatinine is 1.1-1.3 mg/dL. Her renal ultrasound showed unremarkable kidneys. I discussed with her the importance of good HTN control to surround the progression of disease. Aug, Secondary hyperparathyroidism (ICD-10 - N25.81) She has a secondary hyperparathyroidism due to the CKD. Her Calcium, phosphorus and vitamin D are within the goal. Continue oral vitamin D. Aug, Hyperuricemia (ICD-1 0 - E79.0) She has a hyperuricemia but denies any gout flare. We will monitor it and and start allopurinol in future if she has persistently high uric acid or gout. Aug, Hypokalemia (ICD-10 - E87.6) She has hypokalemia due to the diuretic induced renal potassium wasting. Advised to liberalize the potassium intake in her diet. Also increase the dose of losartan which will make the potassium normal. Aug, Hypomagnesemia (ICD- 10 - E83.42) She has hypomagnesemia due to the diuretic induced renal magnesium wasting and PPI induced GI losses. Continue oral Magnesium [facility] Chief Complaint: Patient here for 1 year follow up CAD and hypertension. She was recently discharged from [facility] for Covid-19. She says hydrochlorothiazide was stopped and she isn't sure why. Has some intermittent chest pain and gets very SOB with ambulation. She sees Dr. Mcclain for COPD. HPI: Diana Champion is a 67 y.o. female With a history of nonobstructive coronary artery disease and hypertension here in follow-up. She was diagnosed with COVID at the end of March. She has been more short of breath since then. She has seen her printed circuit board layout designer. Her chest pain is noncardiac. She has no other cardiac complaints. Cardiology ROS: Review of Systems Cardiovascular: Positive for chest pain and dyspnea on exertion. Respiratory: Positive for wheezing. Musculoskeletal: Positive for arthritis, back pain, joint pain and myalgias. Neurological: Positive for light-headedness. All other systems reviewed and are negative. Past Medical History She has a past medical history of Cancer (CMS/HCC) and Hypertension. Surgical History She has a past surgical history that includes Back surgery; Tubal ligation; Cardiac catheterization (Left); Total hip arthroplasty; FL guided aspiration or injection large joint bilateral (Bilateral, 07/25/2019); Foot surgery (Right); and Knee Arthroplasty (Right). Social History She reports that she has never smoked. She has never used smokeless tobacco. She reports current alcohol use. She reports that she does not use drugs. Family History Family History Problem Relation Name Age of Onset Heart failure Mother Heart disease Father Allergies Vancomycin and Linezolid Medications Current Outpatient Medications: albuterol 2.5 mg /3 mL (0.083 %) nebulizer solution, USE 1 VIAL IN NEBULIZER EVERY 4 TO 6 HOURS NEEDED, Disp: , Rfl: albuterol 90 mcg/actuation inhaler, INHALE 2 PUFFS BY MOUTH EVERY 4 HOURS NEEDED FOR SHORTNESS OF BREATH, Disp: , Rfl: amLODIPine (Norvasc) 5 mg tablet, Take 1 tablet by mouth in the morning., Disp: , Rfl: aspirin 81 mg chewable tablet, Chew 1 tablet every day by oral route., Disp: , Rfl: baclofen (Lioresal) 5 mg tablet, Take 5 mg by mouth in the morning, afternoon, and at bedtime., Disp: , Rfl: cholecalciferol (Vitamin D-3) 25 MCG (1000 UT) tablet, Take 1 tablet by mouth in the morning., Disp: , Rfl: clotrimazole-betamethasone (Lotrisone) cream, APPLY CREAM TOPICALLY A THIN LAYER TWICE DAILY FOR 2 WEEKS, Disp: , Rfl: cyclobenzaprine (Flexeril) 10 mg tablet, Take 10 mg by mouth if needed in the morning, at noon, and at bedtime., Disp: , Rfl: ferrous sulfate 325 (65 Fe) MG tablet, Take 325 mg by mouth., Disp: , Rfl: hlwrnbdfwff-ydyiitndw-xfalnzjz 100-62.5-25 mcg blister with device, , Disp: , Rfl: gabapentin (Neurontin) 300 mg capsule, Take 300 mg by mouth in the morning and at bedtime., Disp: , Rfl: guaiFENesin (Mucinex) 600 mg 12 hr tablet, Take 1 tablet by mouth in the morning and at bedtime., Disp: , Rfl: hydroCHLOROthiazide (HYDRODiuril) 25 mg tablet, Take 1 tablet by mouth in the morning., Disp: , Rfl: ipratropium (Atrovent) 17 mcg/actuation inhaler, Inhale 2 puffs 4 times a day., Disp: , Rfl: magnesium oxide (Mag-Ox) 400 mg (241.3 mg magnesium) tablet, TAKE 1 TABLET BY MOUTH ONCE DAILY WITH FOOD, Disp: , Rfl: montelukast (Singulair) 10 mg tablet, Take 1 tablet by mouth in the morning., Disp: , Rfl: multivitamin (Theragran-M) 9 mg iron-400 mcg tablet, Take 1 tablet by mouth in the morning., Disp: , Rfl: omeprazole (PriLOSEC) [address] capsule, Take 1 capsule by mouth in the morning., Disp: , Rfl: oxybutynin XL (Ditropan-XL) 5 mg 24 hr tablet, Take 1 tablet by mouth in the morning., Disp: , Rfl: oxyCODONE-acetaminophen (Percocet) 5-325 mg tablet, Take 1 tablet every 6 hours by oral route as needed for 7 days., Disp: , Rfl: PARoxetine (Paxil) 20 mg tablet, Take 1 tablet by mouth in the morning., Disp: , Rfl: potassium chloride CR (K-Tab) 20 mEq ER tablet, TAKE 1 TABLET BY MOUTH ONCE DAILY WITH FOOD, Disp: , Rfl: predniSONE (Deltasone) 20 mg tablet, Take 2 tablets by mouth in the morning., Disp: , Rfl: solifenacin (VESIcare) 5 mg tablet, Take 5 mg by mouth in the morning., Disp: , Rfl: traZODone (Desyrel) 50 mg tablet, Take 1 tablet by mouth in the morning., Disp: , Rfl: Trelegy Ellipta 200-62.5-25 mcg blister with device, INHALE 1 PUFF ONCE DAILY RINSE MOUTH AFTER USE, Disp: , Rfl: Last Recorded Vitals BP 118/67 (BP Location: Left arm, Patient Position: Sitting) Pulse 72 Ht 1.651 m (5' 5 ) Wt 103 kg (226 lb) SpO2 97% BMI 37.61 kg/m??? Physical Examination: GENERAL: alert and oriented x3, well developed, in no acute distress. HEAD: atraumatic, normocephalic. EYES: BHAVANA, EOMI. NECK: trachea midline, no JVD present, no carotid bruits present. CARDIAC: S1, S2 present. RRR. No murmur, rubs, or gallops. RESPIRATORY: CTAB, no increased eff (more content not included)...[facility]05-19-2023 NotePROCEDURE: XR HIP RT 2 3V W PELVIS HISTORY: Pain in right hip joint , chronic COMPARISON: XR L-spine 02/26/2019, XR left hip with pelvis 03/11/2017 FINDINGS: BONES:Complete loss of the right hip joint space with mord-op-wiyw articulation, subchondral sclerosis and cysts, and large periarticular degenerative osteophytes. No fracture or dislocation. Left hip replacement. Mechanical fusion of L5-S1 and moderate dextroscoliosis of lumbar spine. SOFT TISSUES:No visible soft tissue swelling. EFFUSION:None visible. OTHER: Negative. IMPRESSION: 1. Marked degenerative joint disease of the right hip; progressed since prior study. 2. Stable surgical changes. Electronically authenticated by: STEPH GRANADOS Date: 2023-03-24 12:55[facility]05-18-2023 NoteSubjective 03/23/23 Diana Champion is a 67 y.o. year old female old for evaluation of her right hip. 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 Linn on 03/27/2020. She is doing well with regard to this but is having worsening right hip pain located primarily in the groin region. She is here for evaluation for consideration of a right total hip arthroplasty. Past medical history: COPD, hypertension, hyperlipidemia, GERD, cardiac catheterization, lumbar posterior spinal fusion Allergies: Vancomycin, linezolid Patient History Past Surgical History: Procedure Laterality Date BACK SURGERY CARDIAC CATHETERIZATION Left FL GUIDED ASPIRATION OR INJECTION LARGE JOINT BILATERAL Bilateral 07/25/2019 FL GUIDED ASPIRATION OR INJECTION LARGE JOINT BILATERAL KIMBLE CONVERSION FOOT SURGERY Right KNEE ARTHROPLASTY Right TOTAL HIP ARTHROPLASTY TUBAL LIGATION Past Medical History: Diagnosis Date Cancer ([facility]) Hypertension Objective General: Body mass index is 39.48 kg/m???. No acute distress, comfortable Respiratory: Unlabored breathing with normal rate, no cough Cardiovascular: Warm well perfused extremities Psych: Appropriate mood and behavior -Right lower extremity: Right groin pain with positive logroll and Stinchfield and opposite external rotation. The skin of the anterior aspect of the right hip with no edema, erythema or signs of infection. Imaging: X-rays of the pelvis demonstrate significant osteoarthritis of the right hip as well as well positioned implant from a left total hip arthroplasty. These x-rays reviewed by Dr. Linn. Assessment/Plan Diana Champion is a 67 y.o. with right hip osteoarthritis, patient with significant pain and failed conservative treatment. Patient is doing well regarding the left hip but between her Right hip arthritis and low back problems and scolioisis she is struggling and her problems are affecting her DLA and the ability to walk. Patient presenting today to discuss surgical options. PLAN: Patient will be scheduled for Left total hip arthroplasty through a Direct anterior approach pending pre op medical clearances. -We will obtain preoperative clearance from the patient's PCP as well as printed circuit board layout designer for a right anterior total hip arthroplasty. - We will follow-up with the patient preoperatively. - will obtain new X rays of the Right hip next visit. Discussed with the patient the risk of surgery and increased risk of dislocation due to her spinal deformity, discussed using a Dual mobility articulation. Patient agreed to proceed. MD Deshaun Navarrete, PGY3 Orthopedic Surgery Resident By using the attestations below, the signing clinician agrees that I have read and verify that the documentation has been personally reviewed by me and ensure that the documentation accurately reflects the encounter. GC: I personally saw this patient on the day of the encounter, performed the wasserman portion(s) of the service and participated in the management and confirm the resident's documentation. 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 She appears to be euvolemic. Continue current medication. Feb, Chronic kidney disea se, stage III (moderate) (ICD-10 - N18.30) She has a CKD due to the longstanding hypertension and partial recovery from JEANNE. Her baseline serum creatinine is 1.1-1.3 mg/dL. Her renal ultrasound showed unremarkable kidneys. I discussed with her the importance of good HTN control to surround the progression of disease. Feb, Secondary hyperparathyroidism (ICD-10 - N25.81) She has a secondary hyperparathyroidism due to the CKD. Her Calcium, phosphorus and vitamin D are within the goal. Continue oral vitamin D. Feb, Hyperuricemia (ICD-1 0 - E79.0) She has a hyperuricemia but denies any gout flare. We will monitor it and and start allopurinol in future if she has persistently high uric acid or gout. Feb, Hypokalemia (ICD-10 - E87.6) She has hypokalemia due to the diuretic induced renal potassium wasting. Continue oral potassium. Feb, Hypomagnesemia (ICD- 10 - E83.42) She has hypomagnesemia due to the diuretic induced renal magnesium wasting and PPI induced GI losses. 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 She appears to be euvolemic. Continue current medication. Her potassium is low normal. I have advised her to increase her potassium intake in her diet Aug, Chronic kidney disea se, stage III (moderate) (ICD-10 - N18.30) She has a CKD due to the longstanding hypertension and partial recovery from JEANNE. Her baseline serum creatinine is 1.1-1.3 mg/dL. Her renal ultrasound showed unremarkable kidneys. I discussed with her the importance of good HTN control to surround the progression of disease. Aug, Secondary hyperparathyroidism (ICD-10 - N25.81) She has Vit D deficiency but . I have advised her to take oral Vit D 1000 units PO daily. Her PTH is significantly calculable but she has a low calcium and phosphorus. Aug, Hyperuricemia (ICD-1 0 - E79.0) She has a hyperuricemia but denies any gout flare. We will monitor it and and start allopurinol in future if she has persistently high uric acid or gout. Aug, Hypokalemia (ICD-10 - E87.6) She has hypokalemia due to the diuretic induced renal potassium wasting. Continue oral potassium. Aug, Hypomagnesemia (ICD- 10 - E83.42) She has hypomagnesemia due to the diuretic induced renal magnesium wasting and PPI induced GI losses. I have prescribe oral Magnesium Aug, Other Patient reporte d that she will change her insurance and will continue to follow with me. She was informed that our office does not accept her new insurance. [employer] Other 09-02-2022 Evaluation note* Encounter Date Diagnosis Assessment Notes Treatment Notes Treatment Clinical Notes Jul, History of colon cancer (ICD-10 - Z85.038) [employer] Other 01-12-2022 Evaluation note* Encounter Date Diagnosis Assessment Notes Treatment Notes Treatment Clinical Notes Nov, Nico hy kid w cr kid I-IV (ICD-10 - I12.9) Blood pressure is controlled. She appears to be euvolemic. Continue current medication. Her potassium is low normal. I have advised her to increase her potassium intake in her diet Nov, Chronic kidney disea se, stage III (moderate) (ICD-10 - N18.30) She has a CKD due to the longstanding hypertension and partial recovery from JEANNE. Her baseline serum creatinine is 1.1-1.3 mg/dL. Her renal ultrasound showed unremarkable kidneys. I discussed with her the importance of good HTN control to surround the progression of disease. Nov, Secondary hyperparathyroidism (ICD-10 - N25.81) She has Vit D deficiency but . I have advised her to take oral Vit D 1000 units PO daily Nov, Hyperuricemia (ICD-1 0 - E79.0) She has a hyperuricemia but denies any gout flare. We will monitor it and and start allopurinol in future if she has persistently high uric acid or gout. Nov, Hypokalemia (ICD-10 - E87.6) She has hypokalemia due to the diuretic induced renal potassium wasting. I have prescribed oral potassium. [employer] Other 10-25-2021 Evaluation note* Encounter Date Diagnosis Assessment Notes Treatment Notes Treatment Clinical Notes Aug, Contact with and (suspected) exposure to other viral communicable diseases (ICD-10 - Z20.828) Aug, Viral URI (ICD-10 - J06.9) Advised patient that COVID antigen test was negative today. Advised patient that will tx as viral URI. Supportive care as directed, increase fluids and rest, Tylenol/Motrin as directed, OTC cough/cold remedies as directed on packaging such as Cordicidin HBP, cool mist humidifier, throat lozenges. Discussed infection control practices such as good hand washing and mask wearing. Patient to follow-up with UC or PCP for persistent or worsening sx despite tx for COVID PCR test and to monitor wheezing noted on physical exam. Immediate eval by ER for warning s/sx as discussed, including but not limited to, SOB, difficulty breathing, chest pain, palpitations, fever >103 or fevers that are not reduced with antipyretic, significant dehydration (unable to keep fluids or food down, persistent vomiting/diarrhea) , abdominal pain, lethargy, severe headache. Patient was provided with education hand sheet. Patient verbalizes understanding and is agreeable to treatment plan Aug, Other Additional time spent conducting pre-visit phone call, screening for symptoms, instructions on social distancing, application and removal of PPE, and cleaning of examination room, equipment and supplies was preformed. Patient education given for testing methodology and results. Patient care instructions given in writting by 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 Medical History MORBID OBESITY DUE TO EXCESS ASPEN ORIES Medical History RESPIRATORY FAILURE Medical History ACUTE POSTHEMORRHAGIC ANEMIA Medical History TYPE 2 DIABETES MELLITUS WITHOUT COMPLICATIONS Medical History HYPER LIPIDEMIA Medical History MAJOR DEPRESSIVE DISORDER Medical History GERD Medical History MUSCLE SPASM Medical History UNSPECIFIED ASTHMA Medical History DYSPNEA Surgical History back surgery 2003 Surgical History back Sx 2004 Surgical History tubal ligation 1987 Surgical History tubal ligation 1988 Surgical History foot sx 09/2015 Surgical History left total hip arthoplasty 07/26 16 Surgical History (R) TKA - DR SERRATO 8 Surgical History 1 INCH OF BONE OFF OF RIGHT BALTA T 2014 Surgical History LEFT HIP RESVISION 03/2020 Hospitalization History see above 2003,198 7 Hospitalization History 1 week during chemo 2003 Hospitalization History ISSUE WITH HIP C OMING OUT AND NEEDING TO PUT IT BACK IN 08/2019 Hospitalization History HIP REVISION 03/2020 [employer] Other History general Narrative - Reported* Type Description Date Medical History Colon Cancer 2003 Medical History COPD 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 Medical History MORBID OBESITY DUE TO EXCESS ASPEN ORIES Medical History RESPIRATORY FAILURE Medical History ACUTE POSTHEMORRHAGIC ANEMIA Medical History TYPE 2 DIABETES MELLITUS WITHOUT COMPLICATIONS Medical History HYPER LIPIDEMIA Medical History MAJOR DEPRESSIVE DISORDER Medical History GERD Medical History MUSCLE SPASM Medical History UNSPECIFIED ASTHMA Medical History DYSPNEA Medical History COVID 04/2023 Surgical History back surgery 2003 Surgical History back Sx 2004 Surgical History tubal ligation 1987 Surgical History tubal ligation 1988 Surgical History foot sx 09/2015 Surgical History left total hip arthoplasty 07/26 16 Surgical History (R) TKA - DR SERRATO 8 Surgical History 1 INCH OF BONE OFF OF RIGHT BALTA T 2014 Surgical History LEFT HIP RESVISION 03/2020 Hospitalization History see above 2003,198 7 Hospitalization History 1 week during chemo 2003 Hospitalization History ISSUE WITH HIP C OMING OUT AND NEEDING TO PUT IT BACK IN 08/2019 Hospitalization History HIP REVISION 03/2020 Hospitalization History COVID X 2 WEEKS 04/2023 [employer] Other Hospital Discharge instructions Additional Instructions DISCHARGE INSTRUCTIONS FOR ENDOSCOPY FOR COLONOSCOPY: -Expect a gassy or full feeling after a colonoscopy. Report any NEW abdominal pain or vomiting. -Watch for rectal bleeding if you have a polyp removed. You may have oozing, but notify the doctor if you pass clots. -Avoid aspirin for 2 days IF a polyp is removed. -It is important to keep your appointments for follow up examinations because polyps can grow back. FOR SEDATION FOR 24 HOURS: -NO driving -Do NOT operate machinery such as power tools, lawn mowers, snow blowers, sewing machines, etc. -Avoid alcoholic beverages and drugs for allergies, nerves, or sleep. -Do NOT stay alone. Do NOT leave your child unattended. -Do NOT make important personal or business decisions or sign any legal documents. -Eat solid foods and drink liquids in smaller amounts than usual until normal appetite returns. If you should experience an upset stomach, liquids high in sugar content (soda, Román-aid, non-acid juices) are recommended. -You can resume normal activities tomorrow. FOLLOW UP Please call the office and make a follow up appointment to see me as needed. Repeat colonoscopy in 5 years -Notify the doctor if you have any problems. -Office number [phone] Work Phone: Advance Directives No Advanced Directives Records Found Advance Directive Response Recorded Date/ Time Advance Directives Yes June 29, 2017 1:43pm Advance Directive Response Recorded Date/ Time Advance Directives Yes June 29, 2017 12:43pm Chief Complaint and Reason for Visit Chief Complaint ^ ^ JEANNE, Anemia of renal disease, htn Chief Complaint ^ ^ Hx of Colon Cancer Reason for Visit History of colon can cer Assessments No Assessments Information Available Summary Purpose Family History No Family History Records Found Relationship Condition Age at Onset Recorded Date/T gladys father Cardiovascular disease Unknown Not Specified Congestive heart failure Unknown Additional Source Comments Source Comments (unrecognize d section and content) In the event this informatio n is protected by the Federal Confidentiality of Alcohol and Drug Abuse Patient Records regulations: The Federal rules restrict any use of the information to criminally investigate or prosecute any alcohol or drug abuse patient.[facility] Center[facility] the event this information is protected by the Federal Confidentiality of Alcohol and Drug Abuse Patient Records regulations: The Federal rules restrict any use of the information to criminally investigate or prosecute any alcohol or drug abuse patient.[facility] CenterIn the event this information is protected by the Federal Confidentiality of Alcohol and Drug Abuse Patient Records regulations: The Federal rules restrict any use of the information to criminally investigate or prosecute any alcohol or drug abuse patient.[facility] CenterIn the event this information is protected by the Federal Confidentiality of Alcohol and Drug Abuse Patient Records regulations: The Federal rules restrict any use of the information to criminally investigate or prosecute any alcohol or drug abuse patient.[facility] INFORMATION SOURCE (unrecogn ized section and content) DATE CREATED AUTHOR 03/03/[address] [facility] DATE CREATED AUTHOR AUTHOR'S ORGANIZ ATION 04/17/2023 [facility] DATE CREATED AUTHOR AUTHOR'S ORGANIZ ATION 05/08/2023 [facility] DATE CREATED AUTHOR AUTHOR'S ORGANIZ ATION 06/07/2023 [facility] DATE CREATED AUTHOR AUTHOR'S ORGANIZ ATION 10/06/2023 [facility] DATE CREATED AUTHOR AUTHOR'S ORGANIZ ATION 10/20/2023 [facility] REASON FOR VISIT (unrecogniz ed section and content) #14 BLACK ALICIA, COUGH, CONGES TIONCKDCLINICALNo InformationCKD and HYpokalemiaClinicalClinicalCKD and HTNCKD and HTNREFILLREFILL Care Teams (unrecognized sec tion and content) Team Status: Inactive Member Role Status Dates Gato Domingo MD Attending Provider Active Shaikh Lev MD Primary Care Provider Active Team Status: Active Member Role Status Dates Steph Collier Attending Provider Active Team Status: Active Member Role Status Dates Shaikh Lev MD Primary Care Provider Active FOR RECORDS PERTAINING TO PATIENTS WHO ARE OR HAVE BEEN ENROLLED IN A CHEMICAL DEPENDENCY/SUBSTANCEABUSE PROGRAM, SOME INFORMATION MAY BE OMITTED. This clinical summary was aggregated from multiple sources. Caution should be exercised in using it in the provision of clinical care. This summary normalizes information from multiple sources, and as a consequence, information in this document may materially change the coding, format and clinical context of patient data. In addition, data may be omitted in some cases. CLINICAL DECISIONS SHOULD BE BASED ON THE PRIMARY CLINICAL RECORDS. [facility]. provides no warranty or guarantee of the accuracy or completeness of information in this document.
== END 2023-10-25 09:27 | disposition home or self-care (01) ==
LOC: RAD 09:26
PROVIDERS: PCP Internal Medicine; Visit Provider Internal Medicine
DX: J20.9 Acute bronchitis, unspecified (principal)
CPT/HCPCS: 71046

== ENCOUNTER 2023-11-13 08:28 | Day surgery (SDC) | payer OTHER, SELFPAY ==
--- OUTSIDE RECORDS SUMMARY | 2023-11-13 08:31 | XMS_ITS | CCD ---
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 Name Role Phone Steph Collier Attending Provider Unavailable Chantel Rainey Primary Care Provider Unavailabl e JoanaHerberth Attending Provider Unavailable Unavailable Primary Care Provider Unavailabl e UNKNOWN, PHYSICIAN Referring Unavailable JOO LINN Attending Unavailable JOO LINN Admitting Unavailable UNKNOWN, PHYSICIAN Primary Care Unavailable Rena Hurd Unavailable Joana, Herberth Unavailable Gato Domingo Unavailable Steph Collier Attending Provider [phone] MD Gato Domingo Attending Provider [phone] MD Nicky Ohara Primary Care Provider Gilma Trent Unavailable JOANA, HERBERTH Attending Unavailable JOANA, HERBERTH Admitting Unavailable FAWWAD, SAUNDERS H Primary Care Unavailable HERBERTH BERNARD Consulting Unavailable SAM ., BO Admitting Unavailable FAWWAD, SAUNDERS H Primary Care Unavailable FAWWAD, SAUNDERS H Consulting Unavailable JOHNY Rendon, BO Attending Unavailable BRITTANY GALDAMEZ Consulting Unavailable ISABEL ., DR SANTIAGO Admitting Unavailabl e KARBLANCA ., DR SANTIAGO Attending Unavailabl e KARASINorman ., DR SANTIAGO Consulting Unavailabl e FAWANASTASIA, SAUNDERS H Primary Care Unavailable MOCA, DR BRITTANY Elizondo Consulting Unavailable DARWIN, DR STEPH Holland Consulting Unavailable KARBLANCA ., DR SANTIAGO Admitting Unavailabl e KARBLANCA [...] Unavailable FAWWAD, SAUNDERS H Attending Unavailable FAWWAD, SUANDERS H Consulting Unavailable FAWWAD, SAUNDERS H Admitting [...] Attending Unavailable FAWWAD, SAUNDERS H Consulting Unavailable [facility] Attending Unavailable JOO LINN Attending Unavailable Fawwad, Saunders Primary Care Unavailable Gato Domingo Attending UnavailGato Chatterjee Admitting Unavailabl e Alicia DRAPER, Jayshree Johnson Attending Unavailable Alicia DRAPER, Jayshree Johnson Attending Unavailable FAWWAD, SAUNDERS Attending Unavailable FAWWAD, SAUNDERS Attending Unavailable Unavailable Unavailable Unavailable Allergies Allergy Classification Reported Allergen(s) Allergy Type Date of Onset Reaction(s) Facility (3 sources) fentaNYL; Translations: [fentanyl] Drug Allergy 07-07-20 [facility] (2 sources) linezolid; Translations: [LINEZOLID] Drug Allergy 03-17-20 [facility] Repository (20 sources) Vancomycin; Translations: [VANCOMYCIN] Drug Allergy 03-17-20 Unknown [facility] Repository (11 sources) DENIES METAL SENSITITIVITY Propensity to adverse reactions Unknown [employer] Other Medications Current Medications Medication Drug Class(es) [...] mg oral tablet (3 sources) Benzodiazepine Start: take 0.5 mg by mouth once daily Clonazepam Active 0.5 MG Oral Daily July 07, 2017 10:19am Comment on above: Take 0.5 mg by mouth . cyclobenzaprine hydrochloride 10 mg oral tablet (3 sources) Muscle Relaxant Start: take 10 mg by mouth once daily Cyclobenzaprine Active 10 MG Oral Daily July 07, 2017 10:19am Comment on above: Take 10 mg by mouth. famotidine 40 mg oral tablet (3 sources) Histamine-2 Receptor Antagonist Start: End: take 40 mg by mouth at bedtime Famotidine Active 40 MG Oral Bedtime July 07, 2017 10:21am famotidine (PEPC ID) 20 mg tablet Take 20 mg [...] each nostril Nasally Once a day Active Jszsnbjbyxh-Lzvkgvkfa-Pf lanter (1 source) Star t: 02-0 2-20 23 Etmripqebpr-Afprqxffy-Z ilanter (Trelegy Ellipta) 200-62.5-25 mcg blister with [...] tablet (9 sources) Thiazide Diuretic Star t: 2 23 take 25 mg by mouth once daily Hydrochlorothiazide Active 25 MG PO Daily December 08, 2022 12:00am 200 actuat ipratropium bromide 0.017 mg/actuat metered dose inhaler (6 sources) Anticholinergic Star t: 1- 17 take 1 puff(s) by inhalation twice daily Ipratropium [place] Active 2 PUFF Inhalation Twice daily July [...] 07, 2017 10:21am take 1 capsule by [facility] every twelve hours Omeprazole 20 MG [...] tablet (14 sources) Serotonin Reuptake Inhibitor Start: 7 take 20 mg by mouth once daily [...] Active Start: 08-05-2022 take 1 tablet by [facility] every twelve hours Potassium Chloride ER 20 [...] (3 sources) Thiazide Diuretic, Aldosterone Antagonist Start: 01-03-2019 take 1 tablet by mouth once spironolactone-h ctz 25/25 (ALDACTAZIDE) 25-25 mg per tablet Take [...] infection (1 source) COVID-19; Translations: [COVID-19] Onset: 3 Past or Other Problems Problem Classification Problem [...] Results Test Name Value Interpretation Reference Range Facility Follow-Upon 05-08-2023 Follow-Up [id number] Nell Champion 1955 F Date Provider Department Center 05/08/2023 HETAL MERLOS [facility] Family History Problem Relation Age of Onset Heart failure Mother Heart disease Father Family Status - Relation Status Age at Mother Father Level of Service:97182 [place] OFFICE/OUTPATIENT ESTABLISHED LOW MDM 20-29 MIN [facility] 05-03-2023 37 PATIENT CALLED TO CANCEL SURGERY FOR July D/T HER LUNG DISEASE. WILL CALL TO RESCHEDULE WHEN FULLY HEALED FROM LUNGS AND CLEARED//[facility] 04-19-2023 36 FYI CALLED PATIENT T O F/U ON MEDICAL AND PULMONARY CLEARANCES FOR R ELZA ON 05/19 AND PRE-OP RIYA'T 04/27 WITH US AND PATIENT IS CURRENTLY INPATIENT SINCE LAST WEEK D/T COVID AND PULMONARY ISSUES, SHE WILL CALL US ON 04/25 WITH PROGRESS, PLEASE ADVISE IF WE SHOULD CANCEL SURGERY FOR NOW..THANKS//[facility] SYMPTOMATIC COVID-19 ANTIGEN on 04-04-2023 EUA Statement SEE BELOW [facility] Comment on above: Result Comment: [...] By: #### C VDAGS #### [facility] [address] [place] [address] Dr. Shayne Roldan SARS-CoV-2 (COVID-19) RNA KAYLEE+probe Ql (Unsp spec) Positive Abnormal NEGATIVE [facility] Comment on above: Performed By: #### C VDAGS #### [facility] [address] [place] [address] Dr. Shayne Roldan XR LSPINE 2_3 VIEWSon 2022 XR LSPINE 2_3 VIEWS EXAMINATION: XR LSPINE 2_3 VIEWS HISTORY: Pain in thoracic spine [...] STEPH GRANADOS Date: 2023-03-24 12:52 Normal [facility] PTH INTACTon 02-27-2023 PTH, Intact 87 pg/mL Critically high 15-65 [facility] Comment on above: Performed By: #### P THINT #### [facility] [address] [address] [address] Shayne Roldan HEMOGRAM AND PLATELon 2022 Hematocrit (Bld) [Volume fraction] 44.4 % Normal 36.0-48.0 [facility] Comment on above: Performed By: #### H H #### [facility] [address] [address] [address] Shayne Roldan Hemoglobin (Bld) [Mass/Vol] 14.5 g/dL Normal 12.0-16.0 [facility] Comment on above: Performed By: #### H H #### [facility] [address] [address] [address] Shayne Roldan MCH (RBC) [Entitic mass] 30.3 pg Normal 26.7-34.0 [facility] Comment on above: Performed By: #### H H #### [facility] [address] [address] [address] Shayne Roldan MCHC (RBC) [Mass/Vol] 32.7 g/dL Normal 29.9-35.2 [facility] Comment on above: Performed By: #### H H #### [facility] [address] [address] [address] Shayne Roldan MCV (RBC) [Entitic vol] 92.9 fL Normal 81.0-99.0 [facility] Comment on above: Performed By: #### H H #### [facility] [address] [address] [address] Shayne Roldan PLT 367 103/ul Normal 150-450 [facility] Comment on above: Performed By: #### H H #### [facility] [address] [address] [address] Shayne Roldan RBC 4.78 106/ul Normal 4.20-5.40 [facility] Comment on above: Performed By: #### H H #### [facility] [address] [place] [address] Dr. Shayne Roldan WBC 9.9 103/ul Normal 4.0-11.0 [facility] Comment on above: Performed By: #### H H #### [facility] [address] [place] [address] Dr. Shayne Roldan MAGNESIUMon 02-25-2023 Magnesium [Mass/Vol] 1.6 mg/dL Critically low 1.8-2.4 [facility] Comment on above: Performed By: #### M G, RENAL, URIC #### [facility] [address] [place] [address] Dr. Shayne Roldan RENAL FUNCTION PANELon 02-25 Albumin [Mass/Vol] 3.4 g/dL Normal 3.4-5.0 [facility] Comment on above: Performed By: #### M G, RENAL, URIC #### [facility] [address] [place] [address] Dr. Shayne Roldan Calcium [Mass/Vol] 8.7 mg/dL Normal 8.5-10.1 [facility] Comment on above: Performed By: #### M G, RENAL, URIC #### [facility] [address] [place] [address] Dr. Shayne Roldan Chloride [Moles/Vol] 104 mmol/L Normal 98-107 [facility] Comment on above: Performed By: #### M G, RENAL, URIC #### [facility] [address] [address] [address] Shayne Roldan CO2 [Moles/Vol] 25.9 mmol/L Normal 21.0-32.0 [place] Comment on above: Performed By: #### M G, RENAL, URIC #### [facility] [address] [address] [address] Shayne Roldan Creatinine [Mass/Vol] 1.19 mg/dL Critically high 0.55-1.02 [facility] Comment on above: Performed By: #### M G, RENAL, URIC #### [facility] [address] [place] [address] Dr. Shayne Roldan EGFR-AF SOMALI 55 mL/min/1.73m2 Critically low >=60 [facility] Comment on above: Performed By: #### M G, RENAL, URIC #### [facility] [address] [place] [address] Dr. Shayne oRldan EGFR-NON AF SOMALI 45 mL/min/1.73m2 Critically low >=60 [facility] Comment on above: Performed By: #### M G, RENAL, URIC #### [facility] [address] [place] [address] Dr. Shayne Roldan Glucose [Mass/Vol] 193 mg/dL Critically high 74-[address] [facility] Comment on above: Performed By: #### M G, RENAL, URIC #### [facility] [address] [place] [address] Dr. Shayne Roldan Phosphate [Mass/Vol] 3.2 mg/dL Normal 2.6-4.7 [facility] Comment on above: Performed By: #### M G, RENAL, URIC #### [facility] [address] [place] [address] Dr. Shayne Roldan Potassium [Moles/Vol] 3.9 mmol/L Normal 3.5-5.1 [facility] Comment on above: Performed By: #### M G, RENAL, URIC #### [facility] [address] [place] [address] Dr. Shayne Roldan Sodium [Moles/Vol] 140 mmol/L Normal 136-145 [facility] Comment on above: Performed By: #### M G, RENAL, URIC #### [facility] [address] [place] [address] Dr. Shayne Roldan Urea nitrogen [Mass/Vol] 17.0 mg/dL Normal 7.0-18.0 [facility] Comment on above: Performed By: #### M G, RENAL, URIC #### [facility] [address] [place] [address] Dr. Shayne Roldan UA RANDOM W/MICROSCOPICon BACTERIA TRACE Abnormal NONE SEEN [facility] Comment on above: Performed By: #### M G, RENAL, URIC #### [facility] [address] [place] [address] Dr. Shayne Roldan Bilirubin Ql (U) Negative Normal NEGATIVE [facility] Comment on above: Performed By: #### M G, RENAL, URIC #### [facility] [address] [place] [address] Dr. Shayne Roldan CAST NONE SEEN Normal NONE SEEN [facility] Comment on above: Performed By: #### M G, RENAL, URIC #### [facility] [address] [place] [address] Dr. Shayne Roldan Clarity (U) CLEAR Normal CLEAR [facility] Comment on above: Performed By: #### M G, RENAL, URIC #### [facility] [address] [place] [address] Dr. Shayne Roldan Color (U) LT. YELLOW Normal YELLOW [facility] Comment on above: Performed By: #### M G, RENAL, URIC #### [facility] [address] [place] [address] Dr. Shayne Roldan Crystals LM Nom (Urine sed) NONE SEEN Normal NONE SEEN [facility] Comment on above: Performed By: #### M G, RENAL, URIC #### [facility] [address] [place] [address] Dr. Shayne Roldan Epithelial cells LM Ql (Urine sed) RARE Normal NONE SEEN /RARE [facility] Comment on above: Performed By: #### M G, RENAL, URIC #### [facility] [address] [address] [address] Shayne Roldan Glucose Ql (U) Negative Normal NEGATIVE [facility] Comment on above: Performed By: #### M G, RENAL, URIC #### [facility] [address] [address] [address] Shayne Roldan Hemoglobin Ql (U) Negative Normal NEGATIVE [facility] Comment on above: Performed By: #### M G, RENAL, URIC #### [facility] [address] [address] [address] Shayne Roldan Ketones Ql (U) Negative Normal NEGATIVE [facility] Comment on above: Performed By: #### M G, RENAL, URIC #### [facility] [address] [address] [address] Shayne Roldan LEUKOCYTES Negative Normal NEGATIVE [facility] Comment on above: Performed By: #### M G, RENAL, URIC #### [facility] [address] [address] [address] Shayne Roldan MUCOUS NONE SEEN Normal NONE SEEN [facility] Comment on above: Performed By: #### M G, RENAL, URIC #### [facility] [address] [address] [address] Shayne Roldan Nitrite Ql (U) Negative Normal NEGATIVE [facility] Comment on above: Performed By: #### M G, RENAL, URIC #### [facility] [address] [address] [address] Shayne Roldan pH (U) 5.0 [pH] Normal 5-9 [facility] Comment on above: Performed By: #### M G, RENAL, URIC #### [facility] [address] [address] [address] Shayne Roldan RBC 0-2 Normal 0-2 [facility] Comment on above: Performed By: #### M G, RENAL, URIC #### [facility] [address] [address] [address] Shayne Roldan SPEC GRAVITY 1.025 Normal 1.005-<=1.025 [facility] Comment on above: Performed By: #### M G, RENAL, URIC #### [facility] [address] [address] [address] Shayne Roldan UA PROTEIN Negative Normal NEGATIVE/ TRACE [facility] Comment on above: Performed By: #### M G, RENAL, URIC #### [facility] [address] [address] [address] Shayne Roldan Urobilinogen Qn (U) 0.2 {Rogelio'U}/dL Normal 0.2 - 1. 0 [facility] Comment on above: Performed By: #### M G, RENAL, URIC #### [facility] [address] [place] [address] Dr. Shayne Roldan WBC 0-2 Abnormal NONE SEEN [facility] Comment on above: Performed By: #### M G, RENAL, URIC #### [facility] [address] [place] [address] Dr. Shayne Roldan URIC ACID SERUMon 02-25-2023 Urate [Mass/Vol] 6.1 mg/dL Critically high 2.6-6.0 [facility] Comment on above: Performed By: #### M G, RENAL, URIC #### [facility] [address] [place] [address] Dr. Shayne Roldan URINE T PROTEIN CREAT RATIOo n 02-25-2023 Protein (U) [Mass/Vol] 13.0 mg/dL Critically high <=12.0 [facility] Comment on above: Performed By: #### M G, RENAL, URIC #### [facility] [address] [place] [address] Dr. Shayne Roldan UR PROT CREAT RAT 0.16 Normal [facility] Comment on above: Performed By: #### M G, RENAL, URIC #### [facility] [address] [place] [address] Dr. Shayne Roldan URINE CREAT 83.60 mg/dL Normal 20.00-300.00 [facility] Comment on above: Performed By: #### M G, RENAL, URIC #### [facility] [address] [place], [place] [address] Dr. Shayne Roldan VITAMIN D 25 OHon 02-25-2023 VIT D 25-OH 41.6 ng/mL Normal [facility] Comment on above: Performed By: #### M G, RENAL, URIC #### [facility] [address] [place], [place] [address] Dr. Shayne Roldan VIT D RANGES SEE BELOW Normal [facility] Comment on above: Result Comment: <20 ng/mL Vit D deficient 20 - <30 ng/mL Vit D insufficient 30 - 100 ng/mL Vit D sufficient >100 ng/mL Potential Toxicity Performed By: #### M G, RENAL, URIC #### [facility] [address] [place], [place] [address] Dr. Shayne Roldan XR CHEST 2 Von [...] BRITTANY GALDAMEZ Date: 2023-02-22 16:15 Normal [facility] MAMM SCREEN 3D PRATEEK CADon 12-15-2022 MAMM SCREEN 3D PRATEEK CAD Patient: DIANA CHAMPION Exam Date: 12/15/2022 : 1955 Gender:F Ordering : DR JACK HALL . Admission #: [id number] Family : Order #: [id number] CLICK HERE TO VIEW EXAM RADIOLOGY REPORT PROCEDURE: MAMMOGRAM SCREENING 3D BILATERAL CAD COMPARISON: MAMM SCREEN 3D PRATEEK CAD, 11/26/2021. INDICATIONS: Calculator Name NCI Breast Cancer Risk Assessment Tool 5 Year Breast Cancer Risk 1.20% Lifetime Breast Cancer Risk 4.40% Personal Breast Cancer No Personal Ovarian Cancer No Treatments Excision, radiation, chemotherapy Family Cancers None LOCATION: [facility] BREAST COMPOSITION: Almost entirely fatty. [...] Walters MD on 12/15/2022 at 10:51 Normal [facility] XR DEXA BONE DENSITYon 12-15 XR [...] by: STEPH GRANADOS Date: 2022-12-15 09:50 Normal [facility] Fran 12-08-2022 L - -------- Specimen: [id number] Received: 12/08/22 Status: CELIA Eliza Num: [id number] Spec Type: Surgical Subm Dr: Gato Domingo MD Tissues: A Colon Biopsy (DESC COL POLYP) Procedures: HE/2, Gross/Micro L4 -------- Age/ Patient Sex Location Account Attending Physician -------- Diana Champion 67/F [id number] Gato Domingo MD -------- SPEC NUM: [id number] RECD: 12/08/22 STATUS: CELIA MARTIN NUM: [id number] KENDRA: 12/08/22 [facility] DR: Gato Domingo MD ENTERED: 12/08/22-[address] [facility] [address]: KHRIS TYPE: Surgical DEPT: S ENTERED BY: [id number] RECV BY: [id number] ORDERED: HE/2, Gross/Micro L4 ORDERED: HE/2, Gross/Micro [...] support the above pathologic diagnosis. CPT Codes 48821 -------- -------- Specimen: [id number] Received: 12/08/22 Status: CELIA Eliza Num: [id number] Spec Type: Surgical Subm Dr: Gato Domingo MD Tissues: A Colon Biopsy (DESC COL POLYP) Procedures: HE/Evonne, Gross/Micro L4 -------- Patient: Diana Champion [id number] (Continued) -------- Signed (signature on file) Eunice Rosa MD 12/09/22 10[facility] PAP ACOG PANEL 2: 30 to 65on 11-16-2022 . . Normal [facility] Comment on above: Performed By: #### [id number] #### [facility] [address] [address] [address] Shayne Roldan Age Gdln ACOG Testing Comment Normal [facility] Comment on above: Result Comment: <21 or >65 or no age provided Performed By: #### [id number] #### [facility] [address] [address] [address] Shayne Roldan DIAGNOSIS: Comment Normal [facility] Comment on above: Result Comment: NEGA TIVE FOR INTRAEPITHELIAL LESION OR MALIGNANCY. Performed By: #### [id number] #### [facility] [address] [address] [address] Shayne Roldan Methodology: Comment [facility] Comment on above: Result Comment: This liquid based ThinPrep(R) pap test was screened with the use of an image guided system. Performed By: #### [id number] #### [facility] [address] [place] [address] Dr. Shayne Roldan Note: Comment [facility] Comment on above: Result Comment: The Pap smear is a screening test designed to aid in the detection of premalignant and malignant conditions of the uterine cervix. It is not a diagnostic procedure and should not be used as the sole means of detecting cervical cancer. Both false-positive and false-negative reports do occur. . Performed By: #### [id number] #### [facility] [address] [place] [address] Dr. Shayne Roldan Performed by: Comment [facility] Comment on above: Result Comment: Onur Aguilar Drawing In Machine Tender (ASCP) Performed By: #### [id number] #### [facility] [address] [place] [address] Dr. Shayne Roldan Specimen adequacy: Comment Normal [facility] Comment on above: Result Comment: Sati sfactory for evaluation. Endocervical and/or squamous metaplastic cells (endocervical component) are present. Performed By: #### [id number] #### [facility] [address] [place] [address] Dr. Shayne Roldan RENAL FUNCTION PANELon 08-19 Albumin [Mass/Vol] 3.4 g/dL Normal 3.4-5.0 [facility] Comment on above: Performed By: #### M G, RENAL, URIC #### [facility] [address] [address] [address] Shayne Roldan Calcium [Mass/Vol] 8.4 mg/dL Critically low 8.5-10.1 Th [facility] Comment on above: Performed By: #### M G, RENAL, URIC #### [facility] [address] [address] [address] Shayne Roldan Chloride [Moles/Vol] 103 mmol/L Normal 98-107 [facility] Comment on above: Performed By: #### M G, RENAL, URIC #### [facility] [address] [place] [address] Dr. Shayne Roldan CO2 [Moles/Vol] 27.8 mmol/L Normal 21.0-32.0 [place] Comment on above: Performed By: #### M G, RENAL, URIC #### [facility] [address] [address] [address] Shayne Roldan Creatinine [Mass/Vol] 1.02 mg/dL Normal 0.55-1.02 [facility] Comment on above: Performed By: #### M G, RENAL, URIC #### [facility] [address] [address] [address] Shayne Roldan EGFR-AF SOMALI >60 Normal >=60 [place] Comment on above: Performed By: #### M G, RENAL, URIC #### [facility] [address] [address] [address] Shayne Roldan EGFR-NON AF SOMALI 54 mL/min/1.73m2 Critically low >=60 [facility] Comment on above: Performed By: #### M G, RENAL, URIC #### [facility] [address] [address] [address] Shayne Roldan Glucose [Mass/Vol] 110 mg/dL Critically high 74-[address] [facility] Comment on above: Performed By: #### M G, RENAL, URIC #### [facility] [address] [place] [address] Dr. Shayne Roldan Phosphate [Mass/Vol] 2.3 mg/dL Critically low 2.6-4.7 [facility] Comment on above: Performed By: #### M G, RENAL, URIC #### [facility] [address] [place] [address] Dr. Shayne Roldan Potassium [Moles/Vol] 3.2 mmol/L Critically low 3.5-5.1 [facility] Comment on above: Performed By: #### M G, RENAL, URIC #### [facility] [address] [place] [address] Dr. Shayne Roldan Sodium [Moles/Vol] 138 mmol/L Normal 136-145 [facility] Comment on above: Performed By: #### M G, RENAL, URIC #### [facility] [address] [place] [address] Dr. Shayne Roldan Urea nitrogen [Mass/Vol] 14.0 mg/dL Normal 7.0-18.0 [facility] Comment on above: Performed By: #### M G, RENAL, URIC #### [facility] [address] [place] [address] Dr. Shayne Roldan PTH INTACTon 08-06-2022 PTH, Intact 40 pg/mL Normal 15-65 [facility] Comment on above: Performed By: #### M G, RENAL, URIC #### [facility] [address] [place] [address] Dr. Shayne Roldan HEMOGRAM AND PLATELon 2021 Hematocrit (Bld) [Volume fraction] 39.8 % Normal 36.0-48.0 [facility] Comment on above: Performed By: #### M G, RENAL, URIC #### [facility] [address] [place] [address] Dr. Shayne Roldan Hemoglobin (Bld) [Mass/Vol] 13.4 g/dL Normal 12.0-16.0 [facility] Comment on above: Performed By: #### M G, RENAL, URIC #### [facility] [address] [address] [address] Shayne Roldan MCH (RBC) [Entitic mass] 30.5 pg Normal 26.7-34.0 [facility] Comment on above: Performed By: #### M G, RENAL, URIC #### [facility] [address] [place] [address] Dr. Shayne Roldan MCHC (RBC) [Mass/Vol] 33.7 g/dL Normal 29.9-35.2 [facility] Comment on above: Performed By: #### M G, RENAL, URIC #### [facility] [address] [place] [address] Dr. Shayne Roldan MCV (RBC) [Entitic vol] 90.5 fL Normal 81.0-99.0 [facility] Comment on above: Performed By: #### M G, RENAL, URIC #### [facility] [address] [place] [address] Dr. Shayne Roldan PLT 299 103/ul Normal 150-450 [facility] Comment on above: Performed By: #### M G, RENAL, URIC #### [facility] [address] [place] [address] Dr. Shayne Roldan RBC 4.40 106/ul Normal 4.20-5.40 [facility] Comment on above: Performed By: #### M G, RENAL, URIC #### [facility] [address] [place] [address] Dr. Shayne Roldan WBC 8.8 103/ul Normal 4.0-11.0 [facility] Comment on above: Performed By: #### M G, RENAL, URIC #### [facility] [address] [place] [address] Dr. Shayne Roldan MAGNESIUMon 08-05-2022 Magnesium [Mass/Vol] 1.5 mg/dL Critically low 1.8-2.4 [facility] Comment on above: Performed By: #### M G, RENAL, URIC #### [facility] [address] [place] [address] Dr. Shayne Roldan RENAL FUNCTION PANELon 08-05 Albumin [Mass/Vol] 3.5 g/dL Normal 3.4-5.0 [facility] Comment on above: Performed By: #### M G, RENAL, URIC #### [facility] [address] [place] [address] Dr. Shayne Roldan Calcium [Mass/Vol] 8.4 mg/dL Critically low 8.5-10.1 Th e [facility] Comment on above: Performed By: #### M G, RENAL, URIC #### [facility] [address] [address] [address] Shayne Roldan Chloride [Moles/Vol] 101 mmol/L Normal 98-107 [facility] Comment on above: Performed By: #### M G, RENAL, URIC #### [facility] [address] [place] [address] Dr. Shayne Roldan CO2 [Moles/Vol] 29.5 mmol/L Normal 21.0-32.0 [facility] Comment on above: Performed By: #### M G, RENAL, URIC #### [facility] [address] [place] [address] Dr. Shayne Roldan Creatinine [Mass/Vol] 1.04 mg/dL Critically high 0.55-1.02 [facility] Comment on above: Performed By: #### M G, RENAL, URIC #### [facility] [address] [place] [address] Dr. Shayne Roldan EGFR-AF SOMALI >60 Normal >=60 [facility] Comment on above: Performed By: #### M G, RENAL, URIC #### [facility] [address] [place] [address] Dr. Shayne Roldan EGFR-NON AF SOMALI 53 mL/min/1.73m2 Critically low >=60 [facility] Comment on above: Performed By: #### M G, RENAL, URIC #### [facility] [address] [place] [address] Dr. Shayne Roldan Glucose [Mass/Vol] 92 mg/dL Normal 74-106 [facility] Comment on above: Performed By: #### M G, RENAL, URIC #### [facility] [address] [place] [address] Dr. Shayne Roldan Phosphate [Mass/Vol] 2.4 mg/dL Critically low 2.6-4.7 [facility] Comment on above: Performed By: #### M G, RENAL, URIC #### [facility] [address] [address] [address] Shayne Roldan Potassium [Moles/Vol] 2.8 mmol/L Critically low 3.5-5.1 [facility] Comment on above: Performed By: #### M G, RENAL, URIC #### [facility] [address] [address] [address] Shayne Roldan Sodium [Moles/Vol] 137 mmol/L Normal 136-145 [facility] Comment on above: Performed By: #### M G, RENAL, URIC #### [facility] [address] [place] [address] Dr. Shayne Roldan Urea nitrogen [Mass/Vol] 10.0 mg/dL Normal 7.0-18.0 [facility] Comment on above: Performed By: #### M G, RENAL, URIC #### [facility] [address] [place] [address] Dr. Shayne Roldan UA RANDOM W/MICROSCOPICon BACTERIA SMALL Abnormal NONE SEEN The [facility] Comment on above: Performed By: #### U AMIC #### [facility] [address] [place] [address] Dr. Shayne Roldan Bilirubin Ql (U) Negative Normal NEGATIVE [facility] Comment on above: Performed By: #### U AMIC #### [facility] [address] [place] [address] Dr. Shayne Roldan CAST NONE SEEN Normal NONE SEEN The [facility] Comment on above: Performed By: #### U AMIC #### [facility] [address] [place] [address] Dr. Shayne Roldan Clarity (U) CLEAR Normal CLEAR The [facility] Comment on above: Performed By: #### U AMIC #### [facility] [address] [place] [address] Dr. Shayne Roldan Color (U) LT. YELLOW Normal YELLOW The [facility] Comment on above: Performed By: #### U AMIC #### [facility] [address] [address] [address] Shayne Roldan Crystals LM Nom (Urine sed) NONE SEEN Normal NONE SEEN [facility] Comment on above: Performed By: #### U AMIC #### [facility] [address] [address] [address] Shayne Roldan Epithelial cells LM Ql (Urine sed) FEW Abnormal NONE SEEN /RARE The [facility] Comment on above: Performed By: #### U AMIC #### [facility] [address] [address] [address] Shayne Roldan Glucose Ql (U) Negative Normal NEGATIVE [facility] Comment on above: Performed By: #### U AMIC #### [facility] [address] [address] [address] Shayne Roldan Hemoglobin Ql (U) Negative Normal NEGATIVE [facility] Comment on above: Performed By: #### U AMIC #### [facility] [address] [address] [address] Shayne Roldan Ketones Ql (U) Negative Normal NEGATIVE [facility] Comment on above: Performed By: #### U AMIC #### [facility] [address] [address] [address] Shayne Roldan LEUKOCYTES TRACE Abnormal NEGATIVE The [facility] Comment on above: Performed By: #### U AMIC #### [facility] [address] [address] [address] Shayne Roldan MUCOUS NONE SEEN Normal NONE SEEN [facility] Comment on above: Performed By: #### U AMIC #### [facility] [address] [address] [address] Shayne Roldan Nitrite Ql (U) Negative Normal NEGATIVE [facility] Comment on above: Performed By: #### U AMIC #### [facility] [address] [address] [address] Shayne Roldan pH (U) 6.0 [pH] Normal 5-9 [facility] Comment on above: Performed By: #### U AMIC #### [facility] [address] [place] [address] Dr. Shayne Roldan RBC NONE SEEN Abnormal 0-2 [facility] Comment on above: Performed By: #### U AMIC #### [facility] [address] [place] [address] Dr. Shayne Roldan SPEC GRAVITY <=1.005 Abnormal 1.005-<=1.025 [facility] Comment on above: Performed By: #### U AMIC #### [facility] [address] [place] [address] Dr. Shayne Roldan UA PROTEIN Negative Normal NEGATIVE/ TRACE The [facility] Comment on above: Performed By: #### U AMIC #### [facility] [address] [place] [address] Dr. Shayne Roldan Urobilinogen Qn (U) 0.2 {Rogelio'U}/dL Normal 0.2 - 1. 0 [facility] Comment on above: Performed By: #### U AMIC #### [facility] [address] [place] [address] Dr. Shayne Roldan WBC 5-10 Abnormal NONE SEEN The [facility] Comment on above: Performed By: #### U AMIC #### [facility] [address] [place] [address] Dr. Shayne Roldan URIC ACID SERUMon 08-05-2022 Urate [Mass/Vol] 6.5 mg/dL Critically high 2.6-6.0 [facility] Comment on above: Performed By: #### M G, RENAL, URIC #### [facility] [address] [place] [address] Dr. Shayne Roldan URINE T PROTEIN CREAT RATIOo n 08-05-2022 Protein (U) [Mass/Vol] 4.8 mg/dL Normal <=12.0 [facility] Comment on above: Performed By: #### U RTPCR #### [facility] [address] [place] [address] Dr. Shayne Roldan UR PROT CREAT RAT 0.09 Normal [facility] Comment on above: Performed By: #### U RTPCR #### [facility] [address] [address] [address] Shayne Roldan URINE CREAT 52.65 mg/dL Normal 20.00-300.00 [facility] Comment on above: Performed By: #### U RTPCR #### [facility] [address] [address] [address] Shayne Roldan VITAMIN D 25 OHon 08-05-2022 VIT D 25-OH 38.9 ng/mL Normal [facility] Comment on above: Performed By: #### M G, RENAL, URIC #### [facility] [address] [address] [address] Shayne Roldan VIT D RANGES SEE BELOW Normal [facility] Comment on above: Result Comment: <20 ng/mL Vit D deficient 20 - <30 ng/mL Vit D insufficient 30 - 100 ng/mL Vit D sufficient >100 ng/mL Potential Toxicity Performed By: #### M G, RENAL, URIC #### [facility] [address] [address] [address] Shayne Roldan IMMUNOGLOBULINS IGA/IGM/IGG/ IGE QUANTITAon 07-12-2022 Immunoglobulin A, Qn, Serum 295 mg/dL Normal 87-352 [facility] Comment on above: Result Comment: Perf ormed at: CB Performed By: #### M G, RENAL, URIC #### [facility] [address] [place] [address] Dr. Shayne Roldan Immunoglobulin E, Total 32 IU/mL Normal 6-495 [facility] Comment on above: Result Comment: Perf ormed at: BN Performed By: #### M G, RENAL, URIC #### [facility] [address] [address] [address] Shayne Roldan Immunoglobulin G, Qn, Serum 729 mg/dL Normal 586-1602 [facility] Comment on above: Result Comment: Perf ormed at: CB Performed By: #### M G, RENAL, URIC #### [facility] [address] [place] [address] Dr. Shayne Roldan Immunoglobulin M, Qn, Serum 75 mg/dL Normal 26-217 [facility] Comment on above: Result Comment: Perf ormed at: CB Performed By: #### M G, RENAL, URIC #### [facility] [address] [address] [address] Shayne Roldan Abstracton 07-08-2022 Abstract [id number] Nell Champion 1955 F Date Provider Department Center 07/08/2022 JOHANNA MEDINA [facility] Family History Problem Relation Age of Onset Heart failure Mother Heart disease Father Family Status - Relation Status Age at Mother Father Normal [facility] CBC AUTO DIFFon 07-05-2022 BASO # 0.1 103/ul Normal 0.0-0.1 [facility] Comment on above: Performed By: #### M G, RENAL, URIC #### [facility] [address] [place] [address] Dr. Shayne Roldan Basophils/100 WBC (Bld) 0.7 % Normal 0.2-2.0 [facility] Comment on above: Performed By: #### M G, RENAL, URIC #### [facility] [address] [address] [address] Shayne Roldan EO # 0.4 103/ul Normal 0.0-0.7 [facility] Comment on above: Performed By: #### M G, RENAL, URIC #### [facility] [address] [address] [address] Shayne Roldan Eosinophils/100 WBC (Bld) 4.4 % Normal 0.9-7.0 [facility] Comment on above: Performed By: #### M G, RENAL, URIC #### [facility] [address] [address] [address] Shayne Roldan Erythrocyte distribution width (RBC) [Ratio] 12.6 % Normal 11.0-15.0 [facility] Comment on above: Performed By: #### M G, RENAL, URIC #### [facility] [address] [place] [address] Dr. Shayne Roldan Hematocrit (Bld) [Volume fraction] 40.2 % Normal 36.0-48.0 [facility] Comment on above: Performed By: #### M G, RENAL, URIC #### [facility] [address] [address] [address] Shayne Roldan Hemoglobin (Bld) [Mass/Vol] 13.6 g/dL Normal 12.0-16.0 [facility] Comment on above: Performed By: #### M G, RENAL, URIC #### [facility] [address] [place] [address] Dr. Shayne Roldan IG # 0.07 10e3/ul Critically high 0.00-0.03 [facility] Comment on above: Performed By: #### M G, RENAL, URIC #### [facility] [address] [place] [address] Dr. Shayne Roldan IG % 0.8 % Critically high 0.0-0.5 [facility] Comment on above: Performed By: #### M G, RENAL, URIC #### [facility] [address] [place] [address] Dr. Shayne Roldan LYMPH # 2.3 103/ul Normal 1.2-3.8 [facility] Comment on above: Performed By: #### M G, RENAL, URIC #### [facility] [address] [place] [address] Dr. Shayne Roldan Lymphocytes/100 WBC (Bld) 24.7 % Normal 20.5-60.0 [facility] Comment on above: Performed By: #### M G, RENAL, URIC #### [facility] [address] [place] [address] Dr. Shayne Roldan MANUAL DIFF REQ NO Normal [facility] Comment on above: Performed By: #### M G, RENAL, URIC #### [facility] [address] [place] [address] Dr. Shayne Roldan MCH (RBC) [Entitic mass] 30.7 pg Normal 26.7-34.0 [facility] Comment on above: Performed By: #### M G, RENAL, URIC #### [facility] [address] [place] [address] Dr. Shayne Roldan MCHC (RBC) [Mass/Vol] 33.8 g/dL Normal 29.9-35.2 [facility] Comment on above: Performed By: #### M G, RENAL, URIC #### [facility] [address] [place] [address] Dr. Shayne Roldan MCV (RBC) [Entitic vol] 90.7 fL Normal 81.0-99.0 [facility] Comment on above: Performed By: #### M G, RENAL, URIC #### [facility] [address] [place] [address] Dr. Shayne Roldan MONO # 0.7 103/ul Normal 0.3-0.8 [facility] Comment on above: Performed By: #### M G, RENAL, URIC #### [facility] [address] [place] [address] Dr. Shayne Roldan Monocytes/100 WBC (Bld) 7.7 % Normal 1.7-12.0 [facility] Comment on above: Performed By: #### M G, RENAL, URIC #### [facility] [address] [place] [address] Dr. Shayne Roldan NEUT # 5.7 103/ul Normal 1.4-6.5 [facility] Comment on above: Performed By: #### M G, RENAL, URIC #### [facility] [address] [place] [address] Dr. Shayne Roldan Neutrophils/100 WBC (Bld) 61.7 % Normal 43.0-75.0 [facility] Comment on above: Performed By: #### M G, RENAL, URIC #### [facility] [address] [place] [address] Dr. Shayne Roldan Platelet mean volume (Bld) [Entitic vol] 8.8 fL Critically low 9.5-13.5 [facility] Comment on above: Performed By: #### M G, RENAL, URIC #### [facility] [address] [place] [address] Dr. Shayne Roldan PLT 279 103/ul Normal 150-450 [facility] Comment on above: Performed By: #### M G, RENAL, URIC #### [facility] [address] [address] [address] Shayne Roldan RBC 4.43 106/ul Normal 4.20-5.40 [facility] Comment on above: Performed By: #### M G, RENAL, URIC #### [facility] [address] [address] [address] Shayne Roldan WBC 9.1 103/ul Normal 4.0-11.0 [facility] Comment on above: Performed By: #### M G, RENAL, URIC #### [facility] [address] [address] [address] Shayne Roldan Cov[facility]19 [facility]on SARS-CoV-2 (COVID-19) RNA KAYLEE+probe Ql (Unsp spec) Not detected Normal NOT DETECTED [facility] Comment on above: Result Comment: This test is not yet approved or cleared by the [place] FDA. When there are no FDA-approved or cleared tests available, and other criteria are met, FDA can make tests available under an emergency access mechanism called an Emergency Use Authorization (EUA). The EUA for this test is supported by the [place] of Health and Human Service's (HHS's) declaration [...] M G, RENAL, URIC #### [facility] [address] [place] [address] Dr. Shayne Roldan XR CHEST 2 Von [...] NARDA LONDONO Date: 2022-06-08 19:58 Normal [facility] Covid-19 PCR (CVDTB)on SARS-CoV-2 (COVID-19) RNA KAYLEE+probe Ql (Unsp spec) Not detected Normal NOT DETECTED [facility] Comment on above: Result Comment: This test is not yet approved or cleared by the [place] FDA. When there are no FDA-approved or cleared tests available, and other criteria are met, FDA can make tests available under an emergency access mechanism called an Emergency Use Authorization (EUA). The EUA for this test is supported by the [place] of Health and Human Service's (HHS's) declaration [...] consistent with SARS-CoV-2. Performed By: #### [facility] #### [facility] [address] [place] [address] Dr. Shayne Roldan DEXA AXIAL 03-01-2022 DEXA AXIAL [facility] Department of Radiology [address] [place] [id number] Patient Name: DIANA CHAMPION : 1955 Sex: F Age: Race: White Pt. Location: 84 Patient Status: D Ordered Date: 02/24/2022 1:25:00 PM Completed Date: 03/01/2022 09:46 AM Requesting Provider: CINDA ANTONIO Attending Provider: Report Copy To: Signs & Symptoms: Z78.0 Asymptomatic menopausal state I10 History: Jessica Comments: Exam: DEXA AXIAL DEXA AXIAL 03/01/2022 [...] characteristics. Electronically signed: Luzma Fernandez. Transcribed by: Tanesha, User Resident: Electronically Signed by: LUZMA FERNANDEZ @ 03/02/2022 01:07 PM Normal [facility] SCOLIOSIS 2 VWSon 02-24-2022 SCOLIOSIS 2 [facility] Department of Radiology [address] [place] [id number] Patient Name: DIANA CHAMPION : 1955 Sex: F Age: Race: White Pt. Location: Patient Status: D Ordered Date: 02/24/2022 1:25:00 PM Completed Date: 02/24/2022 01:44 PM Requesting Provider: CINDA ANTONIO Attending Provider: Report Copy To: Signs & Symptoms: M43.10 Spondylolisthesis, site unspecified I10 History: Comments: Views (X-RAY, SCOLIOSIS): PA, Lateral evaluate Exam: SCOLIOSIS 2 [facility] Scoliosis. Worsening pain. Frontal and lateral thoracolumbar spine IMPRESSION: 1. Diffuse disc disease and facet arthritis. Right convex mid lumbar curvature measuring 16 degrees. Interbody fusion hardware lower lumbar spine. Electronically signed: Hugo Lynn. Transcribed by: [email or web address], User Resident: Electronically Signed by: HUGO LYNN @ 02/26/2022 11:07 AM Normal [facility] Comment on above: Order Comment: Views (X-RAY, SCOLIOSIS): PA, Lateral evaluate CT LUMBAR SPINE W CONTRASTon 01-24-2022 CT LUMBAR SPINE W CONTRAST [facility] Department of Radiology [address] [place] [phone] Patient Name: DIANA CHAMPION : 1955 Sex: F Age: Race: White Pt. Location: Patient Status: D Ordered Date: 01/09/2022 9:00:00 AM Completed Date: 01/24/2022 03:26 PM Requesting Provider: JOO LINN Attending Provider: JOO LINN Report Copy To: UNKNOWN, PHYSICIAN Signs & Symptoms: M54.16 Radiculopathy, lumbar region I10 History: [place] Comments: , CT MYELOGRAM>PAPER WORK IN CHART [...] L1-2. Electronically signed: Gaurang Lawrence. Transcribed by: [email or web address], User Resident: Electronically Signed by: GAURANG Sheets DESHAWN @ 01/26/2022 08:58 AM Normal [facility] Comment on above: Order Comment: , CT MYELOGRAM>PAPER WORK IN CHART LUMBAR MYELOGRAMon 2 LUMBAR MYELOGRAM [facility] Department of Radiology [address] [place] [id number] Patient Name: DIANA CHAMPION : 1955 Sex: F Age: Race: White Pt. Location: Patient Status: O Ordered Date: 01/09/2022 9:00:00 AM Completed Date: 01/24/2022 02:37 PM Requesting Provider: JOO LINN Attending Provider: JOO LINN Report Copy To: UNKNOWN, PHYSICIAN Signs & Symptoms: M54.16 Radiculopathy, lumbar region I10 History: [place] Is patient on thinners? 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 The procedure expectations risks benefits options and alternatives were discussed. All the questions were answered. The patient understood that results cannot be guaranteed. The procedure is indicated and risks are acceptable. Consent was obtained. Timeout: Hornick protocol timeout verification performed. PROCEDURE: Estimated blood [...] spine report for detailed findings. Approved by:Debbie Almaguer01/24/2022 3:51 PM. I, Greg Marlow,have reviewed the image(s) and agree with the findings in this report. Electronically signed: Greg Marlow. Transcribed by: [email or web address], User Resident: DEBBIE JI Electronically Signed by: GREG MARLOW @ 01/24/2022 04:07 PM I personally read this/these film(s) with this resident Normal [facility] Comment on above: Order Comment: , CT MYELOGRAM> PAPER WORK SCANNED IN CHART , CT MYELOGRAM> PAPER WORK SCANNED IN CHART , , , Ordering Provider - JOO LINN MD , HIP LEFT 1 OR 2 VWS WITH PEL VISon 01-06-2022 HIP LEFT 1 OR 2 VWS WITH PELVIS [facility] Department of Radiology [address] [place] [id number] Patient Name: DIANA CHAMPION : 1955 [...] hardware. Electronically signed: Joe Matthew. Transcribed by: [email or web address], User Resident: Electronically Signed by: JOE MATTHEW @ 01/09/2022 04:45 PM Normal [facility] Comment on above: Order Comment: Evalu ate Vital Signs Date Time Vital Sign Value Performing Clinician Facility 08-17-2023 09:20-0400 Body height 165.1 cm Herberth Joana Other [employer] Other 08-17-2023 09:20-0400 Body mass index (BMI) [Ratio] 38.1 kg/m2 Herberth Joana Other [employer] Other 08-17-2023 09:20-0400 Body temperature 98.8 [degF] Herberth Joana Other [facility] Other 08-17-2023 09:20-0400 Body weight 103.87 kg Herberth Joana Other [facility] Other 08-17-2023 09:20-0400 Diastolic blood pressure 85 mm[Hg] Herberth Joana Other [employer] Other 08-17-2023 09:20-0400 Respiratory rate 18 /min Herberth Joana Other [employer] Other 08-17-2023 09:20-0400 SaO2% (BldA) [Mass fraction] 94 % Herberth Joana Other [employer] Other 08-17-2023 09:20-0400 Systolic blood pressure 151 mm[Hg] Herberth Joana Other [employer] Other 03-02-2023 10:00-0400 Body height 165.1 cm Herberth Joana Other [facility] Other 03-02-2023 10:00-0400 Body mass index (BMI) [Ratio] 37.29 kg/m2 Herberth Joana Other [facility] Other 03-02-2023 10:00-0400 Body temperature 98.9 [degF] Herberth Joana Other [facility] [employer] Other 03-02-2023 10:00-0400 Body weight 101.65 kg Herberth Joana Other [facility] Other 03-02-2023 10:00-0400 Diastolic blood pressure 76 mm[Hg] Herberth Joana Other [facility] Other 03-02-2023 10:00-0400 Respiratory rate 20 /min Herberth Joana Other [employer] Other 03-02-2023 10:00-0400 SaO2% (BldA) [Mass fraction] 96 % Herberth Joana Other [employer] Other 03-02-2023 10:00-0400 Systolic blood pressure 136 mm[Hg] Herberth Joana Other [employer] Other 12-08-2022 09:30-0500 Diastolic blood pressure 59 mm[Hg] MD Shaikh Ohara Work Phone: [facility] 12-08-2022 09:30-0500 Heart rate 55 /min MD Shaikh Ohara Work Phone: [facility] 12-08-2022 09:30-0500 Respiratory rate 16 /min MD Shaikh Ohara Work Phone: [facility] 12-08-2022 09:30-0500 SaO2% (BldA) [Mass fraction] 96 % MD Shaikh Ohara Work Phone: [facility] 12-08-2022 09:30-0500 Systolic blood pressure 112 mm[Hg] MD Shaikh Ohara Work Phone: [facility] 12-08-2022 06:54-0500 Body height 162.56 cm MD Shaikh Ohara Work Phone: [facility] 12-08-2022 06:54-0500 Body temperature 98.2 [degF] MD Shaikh Ohara Work Phone: [facility] 12-08-2022 06:54-0500 Body weight 104.32 kg MD Shaikh Ohara Work Phone: [facility] 08-09-2022 11:00-0400 Body height 165.1 cm Herberth Joana Other [employer] Other 08-09-2022 11:00-0400 Body mass index (BMI) [Ratio] 37.87 kg/m2 Herberth Joana Other [employer] Other 08-09-2022 11:00-0400 Body temperature 97.2 [degF] Herberth Joana Other [facility] Other 08-09-2022 11:00-0400 Body weight 103.24 kg Herberth Joana Other [employer] Other 08-09-2022 11:00-0400 Diastolic blood pressure 88 mm[Hg] Herberth Joana Other [employer] Other 08-09-2022 11:00-0400 Respiratory rate 20 /min Herberth Joana Other [employer] Other 08-09-2022 11:00-0400 SaO2% (BldA) [Mass fraction] 95 % Herberth Joana Other [employer] Other 08-09-2022 11:00-0400 Systolic blood pressure 133 mm[Hg] Herberth Joana Other [employer] Other 11-17-2021 10:40-0500 Body height 165.1 cm Herberth Joana Other [employer] Other 11-17-2021 10:40-0500 Body mass index (BMI) [Ratio] 37.97 kg/m2 Herberth Joana Other [employer] Other 11-17-2021 10:40-0500 Body temperature 97.8 [degF] Herberth Joana Other [employer] Other 11-17-2021 10:40-0500 Body weight 103.51 kg Herberth Joana Other [employer] Other 11-17-2021 10:40-0500 Diastolic blood pressure 70 mm[Hg] Herberth Joana Other [employer] Other 11-17-2021 10:40-0500 Respiratory rate 18 /min Herberth Joana Other [employer] Other 11-17-2021 10:40-0500 SaO2% (BldA) [Mass fraction] 94 % Herberth Joana Other [employer] Other 11-17-2021 10:40-0500 Systolic blood pressure 130 mm[Hg] Herberth Joana Other [employer] Other 08-30-2021 13:15-0400 Body height 165.1 cm Rena Ginty Other [employer] Other 08-30-2021 13:15-0400 Body mass index (BMI) [Ratio] 36.61 kg/m2 Rena Ginty Other [employer] Other 08-30-2021 13:15-0400 Body temperature 98.7 [degF] Rena Ginty Other [employer] Other 08-30-2021 13:15-0400 Body weight 99.79 kg Rena Ginty Other [employer] Other 08-30-2021 13:15-0400 SaO2% (BldA) [Mass fraction] 90 % Rena Ginty Other [employer] Other Encounters Encounter Date Encounter Type Care Provider Facility Start: 11-02-2023 End: 11-02-2023 ambulatory SAUNDERS FAJavonWAD Not Available Start: 10-09-2023 End: 10-10-2023 ambulatory Jayshree Vargas MD Facility:[facility] Start: 10-04-2023 End: 10-04-2023 ambulatory SAUNDERS FAWWAD Not Available Start: 09-07-2023 End: 09-07-2023 ambulatory Herberth Joana Other [employer] Other Start: 09-07-2023 Telephone encounter Herberth Joana [facility] Start: 08-28-2023 End: 08-28-2023 ambulatory Herberth Joana Other [employer] Other Start: 08-28-2023 Telephone encounter Herberth Joana [facility] Start: 08-21-2023 End: 08-22-2023 ambulatory Jayshree Vargas MD Facility:[facility] Start: 08-17-2023 End: 08-17-2023 ambulatory Herberth Joana Other [employer] Other Start: 08-17-2023 Office outpatient visit 25 minutes Herberth Joana [facility] Start: 05-08-2023 End: 05-08-2023 ambulatory [facility] Start: 04-04-2023 End: 04-04-2023 ambulatory SHAIKH Dimitry OHARA Facility:[facility] Start: 03-24-2023 End: 03-25-[address] STEPH GRANADOS Facility:[facility] Start: 03-23-2023 ambulatory JOO [facility] Start: 03-02-2023 End: 03-02-2023 ambulatory Herberth Joana Other [facility] [email or web address] Other Start: 03-02-2023 Office outpatient visit 25 minutes Herberth Joana [facility] Start: 02-25-2023 End: 02-26-2023 ambulatory HERBERTH JOANA Facility: Start: 02-22-2023 End: 02-23-2023 ambulatory BO MCCLAIN . Facility:[facility] Start: 12-15-2022 End: 12-16-[address] JACK HALL . Facility:[facility] Start: 12-08-2022 End: 12-08-2022 ambulatory Shaikh Lev Facility:[facility] Start: 12-08-2022 End: 12-08-2022 Admission to same day surgery center MD Shaikh Ohara Work Phone: [facility] Work Phone: Start: 12-08-2022 End: 12-08-2022 ambulatory MD Shaikh Ohara Work Phone: [facility] Work Phone: Start: 11-11-2022 End: 11-11-[address] JACK HALL . Facility:[facility] Start: 11-09-2022 End: 11-09-2022 ambulatory Gilma Gonzalezs Other [employer] Other Start: 11-09-2022 Telephone encounter Gilma Gonzalezs [facility] Start: 08-19-2022 End: 08-20-2022 ambulatory HERBERTH JOANA Facility:[facility] Start: 08-09-2022 End: 08-09-2022 ambulatory Hreberth Joana Other [employer] Other Start: 08-09-2022 Office outpatient visit 10 minutes Herberth Joana [facility] Start: 08-09-2022 Telephone encounter Herberth Joana [facility] Start: 08-05-2022 Telephone encounter Herberth Joana [facility] Start: 08-05-2022 End: 08-06-2022 ambulatory HERBERTH JOANA [facility] Other Start: 07-08-2022 End: 07-08-2022 ambulatory Gato Domingo Other [employer] Other Start: 07-08-2022 Telephone encounter Gato Cesar [facility] Start: 07-05-2022 End: 07-06-2022 ambulatory SAUNDERS H FAWWAD Facility:[facility] Start: 06-08-2022 End: 06-09-2022 ambulatory SAUNDERS H FAWWAD Facility:[facility] Start: 06-07-2022 End: 06-07-2022 ambulatory SAUNDERS H FAWWAD Facility:[facility] Start: 01-24-2022 End: 01-25-2022 ambulatory PHYSICIAN UNKNOWN Facility:[facility] Start: 11-17-2021 End: 11-17-2021 ambulatory Herberth Joana Other [employer] Other Start: 11-17-2021 Office outpatient visit 15 minutes Herberth Joana [facility] Start: 08-30-2021 Office outpatient visit 15 minutes Rena Hurd [facility] Start: 09-11-2020 End: 09-11-2020 Chart abstracting Miguelito Buck Work Phone: Hematology/Oncology Start: 09-11-2020 End: 09-11-2020 Patient encounter procedure External Provider [facility] Start: 09-11-2020 Results Only External Provider [facility] Start: 09-30-2019 End: 09-30-2019 Patient encounter procedure [facility] [place] Start: 07-07-2017 End: 07-07-2017 Admission to day surgery [facility] Start: 05-24-2004 Evaluation and management of inpatient [facility] [place] Start: 04-26-2004 Evaluation and management of inpatient [facility] [place] Procedures Date Procedure Procedure Detail Performing Clinician Start: 12-08-2022 Colonoscopy MD Shaikh Ohara Work Phone: Start: 09-11-2020 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 [employer] al Provider Start: 09-11-2020 EXTERNAL LAB External P rovider Start: 09-11-2020 EXTERNAL PROCEDURE Exte rnal Provider Start: 09-30-2019 Ultrasonography of b ilateral kidneys Steph Collier Plan of Treatment Date Care Activity Detail Author Start: 12-08-2022 [facility] Start: 07-07-2020 Influenza vaccination INFLUENZA (#1) [facility] Start: 2006 SHINGRIX VACCINE (1 of 2) SHINGRIX VACCINE (1 of 2) [facility] Start: 2006 Tuberculosis screening COLORECTAL CANCER SCREENING,SEE MODIFIER [facility] Start: 2001 DIABETES SCREEN DIABETES SCREEN [facility] Start: 2001 LIPID SCREEN LIPID SCREEN [facility] Start: 1996 Mammography MAMMOGRAM [facility] Start: 1986 HPV TESTING HPV TESTING [facility] Start: 1977 PAP TESTING PAP TESTING [facility] Start: 1975 Urine microalbumin profile DTAP,TDAP,TD (1 - Tdap) [facility] Start: 1974 HEPATITIS C SCREENING HEPATITIS C SCREENING [facility] Start: 1974 HIV SCREENING HIV SCREENING [facility] Patient Education Colon Polypect shahram Hemorrhoids (DC) Diverticulosis (DC) [facility] Work Phone: [facility] Immunizations Immunization Date Immunization Notes Care Provider Henrietta donatofernanda 07-18-2018 Depo-Medrol 40 mg Rena Gint y Other [employer] Other 01-31-2018 Depo-Medrol 40 mg Rena Gint y Other [employer] Other 08-09-2017 influenza, seasonal, injectable, preservative free Rena Ginty Other [employer] Other Payers Date Payer Category Payer Unknown 2022 Self-pay [id number] 2021 Medicare [id number] 2020 Medicaid [id number] 2019 Medicaid MEDICAID [facility] MEDICAID [id number] 2019-Present Medicaid [id number] 2016 Medicare MEDICARE MEDICAR E A AND B [id number] 2016-Present [place], [place] Medicare [id number] 1959 Unknown [id number] 1955 Unknown [id number] 2.16.840.1.751150.3.579.2.647 1955 Unknown [id number] 2.16.840.1.201749.3.579.2.593 1955 Unknown [id number] 2.16.840.1.494519.3.579.2.593 1955 Unknown [id number] 2.16.840.1.963429.3.579.2.593 1955 Unknown [id number] 2.16.840.1.233055.3.579.2.593 1955 Unknown [id number] 2.16.840.1.821304.3.579.2.593 1955 Unknown [id number] 2.16.840.1.420170.3.579.2.593 1955 Unknown [id number] 2.16.840.1.885673.3.579.2.593 1955 Unknown [id number] 2.16.840.1.229741.3.579.2.593 1955 Unknown [id number] 2.16.840.1.679458.3.579.2.593 1955 Unknown [id number] 2.16.840.1.305274.3.579.2.593 1955 Unknown [id number] 2.16.840.1.579675.3.579.2.593 1955 Unknown [id number] 2.16.840.1.123997.3.579.2.196 1955 Unknown [id number] 2.16.840.1.580494.3.579.2.196 1955 Unknown [id number] 2.16.840.1.178015.3.579.2.1259 1955 Unknown [id number] 2.16.840.1.539400.3.579.2.1259 Medicare [id number] Unknown HCAP/HFA/FAP Active [id number] Unknown [id number] 2.16.840.1.192830.3.579.2.531 Social History Date Type Detail Facility Tobacco smoking stat us NCIS Unknown if ever smoked [facility] Start: 1955 Sex Assigned At Female F [facility] Start: 09-11-2020 End: 12-08-2022 Tobacco smoking status NHIS Never smoker [facility] Start: 09-11-2020 Tobacco use and exposure Never used [facility] Start: 09-11-2020 Alcohol intake Lifetime non-d my (finding) [facility] Start: 09-11-2020 History SDOH Alcohol Frequency 1 [facility] Sex Assigned At Not on file [facility] Sex Assigned At Sex Assigned At Bir th [employer] [facility] [email or web address] Other Goals Date Patient Goal Desired Activity /State Clinical Notes 08-30-2021 to 09-07-2023 Note Date & Type Note Facility 09-07-2023 Evaluation note Encounter Date Diagnosis Assessment Notes Sep, Hypomagnesemia (ICD-10 - E83.42) [facility] [email or web address] Other 10-23-2023 Evaluation note* Encounter Date Diagnosis Assessment Notes Treatment Notes Treatment Clinical Notes Aug, Nico lopez w cr kid I-IV (ICD-10 - I12.9) [facility] [email or web address] Other 10-12-2023 Evaluation note* Encounter Date Diagnosis Assessment Notes Treatment Notes Treatment Clinical Notes Aug, Nico guillen kid w cr kid I-IV (ICD-10 - [...] PPI induced GI losses. Continue oral Magnesium [employer] [facility] Chief Complaint: Patient here for 1 year follow up CAD and hypertension. She was recently discharged from [facility] for Covid-19. She says hydrochlorothiazide was stopped [...] breath since then. 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 Her chest pain is noncardiac. She has [...] 325 mg by mouth., Disp: , Rfl: stkjoynzpuk-doxfujshm-pgznblpw 100-62.5-25 mcg blister with device, , Disp: [...] CTAB, no increased eff (more content not included)...[facility]05-19-2023 NotePROCEDURE: XR HIP RT 2 3V W PELVIS HISTORY: Pain in right hip joint , chronic COMPARISON: XR L-spine 02/26/2019, XR left hip with pelvis 03/11/2017 FINDINGS: BONES:Complete loss of the right hip joint space with nlmb-ic-iapu articulation, subchondral sclerosis and cysts, and large periarticular degenerative osteophytes. No fracture or dislocation. Left hip replacement. Mechanical fusion of L5-S1 and moderate dextroscoliosis of lumbar spine. SOFT TISSUES:No visible soft tissue swelling. EFFUSION:None visible. OTHER: Negative. IMPRESSION: 1. Marked degenerative joint disease of the right hip; progressed since prior study. 2. Stable surgical changes. Electronically authenticated by: STEPH GRANADOS Date: 2023-03-24 12:55[facility]05-18-2023 NoteSubjective 03/23/23 Diana Champion is a 67 [...] LIGATION Past Medical History: Diagnosis Date Cancer ([facility] Hypertension Objective General: Body mass index is [...] from the patient's PCP as well as middle school director for a right anterior total hip arthroplasty. [...] may be an additional personal documentation from me.[facility]04-27-2023 Evaluation note* Encounter Date Diagnosis Assessment Notes [...] PPI induced GI losses. Continue oral Magnesium [employer] Other [facility]-02-2023 [facility]* Encounter Date Diagnosis Assessment Notes Treatment Notes Treatment Clinical Notes Nov, Hypokalemia (ICD-10 - E87.6) Nov, Hypomagnesemia (ICD-10 - E83.42) [employer] Other 10-04-2022 Evaluation note* Encounter Date Diagnosis [...] office does not accept her new insurance. [employer] Other 09-02-2022 Evaluation note* Encounter Date Diagnosis Assessment Notes Treatment Notes Treatment Clinical Notes Jul, History of colon cancer (ICD-10 - Z85.038) [employer] Other 01-12-2022 Evaluation note* Encounter Date Diagnosis [...] potassium wasting. I have prescribed oral potassium. [employer] Other 10-25-2021 Evaluation note* Encounter Date Diagnosis [...] Patient care instructions given in writting by [facility] Care At Home document [employer] Other Evaluation noteNo InformationNortS[facility] [email or web address] Other Evaluation note* Diagnosis Onset Date Resolution Status History of colon cancer [facility] Work Phone: History general Narrative - [...] Medical History DYSPNEA Surgical History back surgery 2002 Surgical History back Sx 2003 Surgical History tubal ligation 1987 Surgical History tubal ligation 1987 Surgical History foot sx 09/2015 Surgical History left total hip arthoplasty 07/26 16 Surgical History (R) TKA Joss SERRATO 8 Surgical History 1 INCH OF BONE OFF OF RIGHT BALTA T 2014 Surgical History LEFT HIP RESVISION 03/2020 Hospitalization History see above 2003,198 7 Hospitalization History 1 week during chemo 2003 Hospitalization History ISSUE WITH HIP C OMING OUT AND NEEDING TO PUT IT BACK IN 08/2019 Hospitalization History HIP REVISION 03/2020 [employer] Other History general Narrative - Reported* Type Description Date Medical History Colon Cancer 2004 Medical History COPD Medical History MRSA IN [...] back Sx 2004 Surgical History tubal ligation 1986 Surgical History tubal ligation 1987 Surgical History foot sx 09/2015 Surgical History [...] Hospitalization History COVID X 2 WEEKS 04/2023 [employer] Other Hospital Discharge instructions Additional Instructions DISCHARGE [...] if you have any problems. -Office number [phone] Work Phone: Advance Directives No Advanced Directives [...] or prosecute any alcohol or drug abuse patient.[facility] the event this information is protected by the Federal Confidentiality of Alcohol and Drug Abuse Patient Records regulations: The Federal rules restrict any use of the information to criminally investigate or prosecute any alcohol or drug abuse patient.[facility] Hospital[facility] the event this information is protected by the Federal Confidentiality of Alcohol and Drug Abuse Patient Records regulations: The Federal rules restrict any use of the information to criminally investigate or prosecute any alcohol or drug abuse patient.[facility] HospitalIn the event this information is protected by the Federal Confidentiality of Alcohol and Drug Abuse Patient Records regulations: The Federal rules restrict any use of the information to criminally investigate or prosecute any alcohol or drug abuse patient.[facility] INFORMATION SOURCE (unrecogn ized section and content) DATE CREATED AUTHOR 03/03/2022 [facility] DATE CREATED AUTHOR AUTHOR'S ORGANIZ ATION 04/17/2023 [facility] DATE CREATED AUTHOR AUTHOR'S ORGANIZ ATION 05/08/2023 [facility] DATE CREATED AUTHOR AUTHOR'S ORGANIZ ATION 06/07/2023 [facility] DATE CREATED AUTHOR AUTHOR'S ORGANIZ ATION 10/20/2023 [facility] DATE CREATED AUTHOR AUTHOR'S ORGANIZ ATION 11/04/2023 [facility] REASON FOR VISIT (unrecogniz ed section and [...] BE BASED ON THE PRIMARY CLINICAL RECORDS. [employer] provides no warranty or guarantee of the accuracy or completeness of information in this document.
[2023-11-13 08:55] VITALS: BP 131/70; PULSE 78; RESP 16; TEMP 36.4; O2SAT 93
[2023-11-13 09:23] VITALS: BP 136/84; PULSE 73; RESP 16; O2SAT 92
[2023-11-13] MEDS: BUPIVACAINE HCL 0.25% PF 25 MG/10 ML VIAL INJ (09:24)
[2023-11-13] MEDS: LIDOCAINE HCL 2% PF 100 MG/5 ML VIAL INJ (09:24)
[2023-11-13 09:25] VITALS: BP 190/88; PULSE 76; RESP 18; O2SAT 92
--- NOTE | 2023-11-13 09:27 | W.PM.PROCNOT ---
Date of procedure: 11/13/23 Pre-op diagnosis: Lumbar spondylosis Post-op diagnosis: same as pre-op Procedure: Procedure: Bilateral L3-4, L4-5 medial branch block Medications: Bupivacaine 0.25% 6cc The patient was seen and examined in the preoperative holding area.? An informed consent was obtained and placed on the chart.? The patient was brought to the medical procedure unit and placed in the prone position.? A timeout was completed verifying correct patient, procedure site, positioning, plan, and special equipment.? Using aseptic technique, the needle was placed at left L3. Under direct fluoroscopic visualization a Quincke-tipped spinal needle was advanced to the junction of the superior articulating process with the transverse process at the designated medial branch segment.? Preceded by negative aspiration, the above-mentioned injectate was placed in 1 mL aliquots.? The procedure was repeated at left L4, 5.? The needle was removed and insertion site was covered. The same procedure, at the same levels, was completed on the right side. The patient was taken to the postprocedural recovery area and monitored for an appropriate length of time before found suitable for discharge in the company of a responsible adult. Anesthesia: Local Surgeon: Jayshree Vargas Pathology: none sent Condition: stable Disposition: no change
== END 2023-11-13 09:32 | disposition home or self-care (01) ==
PROVIDERS: PCP Internal Medicine; Visit Provider Anesthesiology
DX: M47.816 Spondylosis without myelopathy or radiculopathy, lumbar region (principal)
CPT/HCPCS: 64493; 64494; J0665

== ENCOUNTER 2023-11-23 08:46 | Outpatient (OUT) | payer OTHER, SELFPAY ==
--- OUTSIDE RECORDS SUMMARY | 2023-11-23 08:51 | XMS_ITS | CCD ---
Author Name Unknown Address [address] [place] [address] Organization [facility] Care Team Providers Care Configuration Management Manager Name Role Phone Steph Collier Attending Provider Unavailable Chantel Rainey Primary Care Provider Unavailabl e JoanaHerberth Attending Provider Unavailable Unavailable Primary Care Provider Unavailabl e UNKNOWN, PHYSICIAN Referring Unavailable JOO LINN Attending Unavailable JOO LINN Admitting Unavailable UNKNOWN, PHYSICIAN Primary Care Unavailable Rena Hurd Unavailable JoanaHerberth epps Unavailable Gato Domingo Unavailable Steph Collier Attending Provider [phone] MD Gato Domingo Attending Provider MD Nicky Ohara Primary Care Provider Gilma Trent Unavailable JOANA, HERBERTH Attending Unavailable JOANA, HERBERTH Admitting Unavailable FAWWAD, SAUNDERS H Primary Care Unavailable HERBERTH BERNARD Consulting Unavailable SAM ., BO Admitting Unavailable FAWWAD, SAUNDERS H Primary Care Unavailable FAWWAD, SAUNDERS H Consulting Unavailable JOHNY ., BO Attending Unavailable BRITTANY GALDAMEZ Consulting Unavailable ISABEL ., DR SANTIAGO Admitting Unavailabl e KARBLANCA ., DR SANTIAGO Attending Unavailabl e KARASINorman ., DR SANTIAGO Consulting Unavailabl e FABIRD, SAUNDERS H Primary Care Unavailable RIVER, DR BRITTANY Elizondo Consulting Unavailable DARWIN, DR STEPH Holland Consulting Unavailable KARBLANCA ., DR SANTIGAO Admitting Unavailabl e KARBLANCA ., DR SANTIAGO [...] Unavailable FAWWAD, SAUNDERS H Consulting Unavailable ELTAHAWY, AB Attending Unavailable JOO LINN Attending Unavailable Fawwad, Saunders Primary Care Unavailable Gato Domingo Attending UnavailGato Chatterjee Admitting Unavailabl sandra Vargas MD, Jayshree Johnson Attending Unavailable Alicia DRAPER, Jayshree Johnson Attending Unavailable FAWWAD, SAUNDERS Attending Unavailable FAWWAD, SAUNDERS Attending Unavailable Unavailable Unavailable Unavailable Allergies Allergy Classification Reported Allergen(s) Allergy Type Date of Onset Reaction(s) Facility (3 sources) fentaNYL; Translations: [fentanyl] Drug Allergy 07-07-20 17 [facility] (2 sources) linezolid; Translations: [LINEZOLID] Drug Allergy 03-17-20 20 [facility] (20 sources) Vancomycin; Translations: [VANCOMYCIN] Drug Allergy 03-17-20 Unknown [facility] (11 sources) DENIES METAL SENSITITIVITY Propensity to adverse reactions Unknown Lingvist Other Medications Current Medications Medication Drug Class(es) [...] each nostril Nasally Once a day Active Uvjgdddafrf-Cgzmnkxpp-Zz lanter (1 source) Star t: 02-0 2-20 23 Apfoyhzoige-Rcfijxkzw-M ilanter (Trelegy Ellipta) 200-62.5-25 mcg blister with [...] 1 puff(s) by inhalation twice daily Ipratropium [place] Active 2 PUFF Inhalation Twice daily July [...] 2017 10:21am take 1 capsule by mo [facility] every twelve hours Omeprazole 20 [...] Active Start: 08-05-2022 take 1 tablet by [facility] every twelve hours Potassium Chloride ER 20 [...] Interpretation Reference Range Facility Follow-Upon 05-08-2023 Follow-Up [id number] Nell Champion 1955 F Date Provider Department Center 05/08/2023 271CATHY HETAL CARD [facility] Family History Problem Relation Age of Onset Heart failure Mother Heart disease Father Family Status - Relation Status Age at Mother Father Level of Service:33557 [place] OFFICE/OUTPATIENT ESTABLISHED LOW MDM 20-29 MIN [facility] 05-03-2023 36 PATIENT CALLED TO CANCEL SURGERY FOR July D/T HER LUNG DISEASE. WILL CALL TO RESCHEDULE WHEN FULLY HEALED FROM LUNGS AND CLEARED//[facility] 04-19-2023 36 FYI CALLED PATIENT T O F/U ON MEDICAL AND PULMONARY CLEARANCES FOR R ELZA ON 05/19 AND PRE-OP RIYA'T 04/27 WITH US AND PATIENT IS CURRENTLY INPATIENT SINCE LAST WEEK D/T COVID AND PULMONARY ISSUES, SHE WILL CALL US ON 04/25 WITH PROGRESS, PLEASE ADVISE IF WE SHOULD CANCEL SURGERY FOR NOW..THANKS//[facility] SYMPTOMATIC COVID-19 ANTIGEN on 04-04-2023 EUA Statement SEE BELOW Normal [facility] Comment on above: Result Comment: [...] #### [facility] [address] [place] [address] Dr. Shayne Roldan SARS-CoV-2 (COVID-19) RNA KAYLEE+probe Ql (Unsp spec) Positive Abnormal NEGATIVE [facility] Comment on above: Performed By: #### C VDAGS #### [facility] [address] [place], [place] [id number] Dr. Shayne Roldan XR LSPINE 2_3 VIEWSon [...] Intact 87 pg/mL Critically high 15-65 [facility] Comment on above: Performed By: #### P THINT #### [facility] [address] [place] [address] Dr. Shayne Roldan HEMOGRAM AND PLATELon 2022 Hematocrit (Bld) [Volume fraction] 44.4 % Normal 36.0-48.0 [facility] Comment on above: Performed By: #### H H #### [facility] [address] [place] [address] Dr. Shayne Roldan Hemoglobin (Bld) [Mass/Vol] 14.5 g/dL Normal 12.0-16.0 [facility] Comment on above: Performed By: #### H H #### [facility] [address] [place] [address] Dr. Shayne Roldan MCH (RBC) [Entitic mass] 30.3 pg Normal 26.7-34.0 [facility] Comment on above: Performed By: #### H H #### [facility] [address] [place] [address] Dr. Shayne Roldan MCHC (RBC) [Mass/Vol] 32.7 g/dL Normal 29.9-35.2 [facility] Comment on above: Performed By: #### H H #### [facility] [address] [address] [address] Shayne Roldan MCV (RBC) [Entitic vol] 92.9 fL Normal 81.0-99.0 [facility] Comment on above: Performed By: #### H H #### [facility] [address] [address] [address] Shayne Roldan PLT 367 103/ul Normal 150-450 [facility] Comment on above: Performed By: #### H H #### [facility] [address] [address] [address] Shayne Roldan RBC 4.78 106/ul Normal 4.20-5.40 [facility] Comment on above: Performed By: #### H H #### [facility] [address] [place] [address] Dr. Shayne Roldan WBC 9.9 103/ul Normal 4.0-11.0 [facility] Comment on above: Performed By: #### H H #### [facility] [address] [place] [address] Dr. Shayne Roldan MAGNESIUMon 02-25-2023 Magnesium [Mass/Vol] 1.6 mg/dL Critically low 1.8-2.4 [facility] Comment on above: Performed By: #### M G, RENAL, URIC #### [facility] [address] [place] [address] Dr. Shayne Roldan RENAL FUNCTION PANELon 02-25 Albumin [Mass/Vol] 3.4 g/dL Normal 3.4-5.0 [facility] Comment on above: Performed By: #### M G, RENAL, URIC #### [facility] [address] [place] [address] Dr. Shayne Roldan Calcium [Mass/Vol] 8.7 mg/dL Normal 8.5-10.1 [facility] Comment on above: Performed By: #### M G, RENAL, URIC #### [facility] [address] [place] [address] Dr. Shayne Roldan Chloride [Moles/Vol] 104 mmol/L Normal 98-107 [facility] Comment on above: Performed By: #### M G, RENAL, URIC #### [facility] [address] [address] [address] Shayne Roldan CO2 [Moles/Vol] 25.9 mmol/L Normal 21.0-32.0 [facility] Comment on above: Performed By: #### M G, RENAL, URIC #### [facility] [address] [address] [address] Shayne Roldan Creatinine [Mass/Vol] 1.19 mg/dL Critically high 0.55-1.02 [facility] Comment on above: Performed By: #### M G, RENAL, URIC #### [facility] [address] [place] [address] Dr. Shayne Roldan EGFR-AF TUVALUAN 55 mL/min/1.73m2 Critically low >=60 [facility] Comment on above: Performed By: #### M G, RENAL, URIC #### [facility] [address] [place] [address] Dr. Shayne Roldan EGFR-NON AF TUVALUAN 45 mL/min/1.73m2 Critically low >=60 [facility] Comment on above: Performed By: #### M G, RENAL, URIC #### [facility] [address] [place] [address] Dr. Shayne Roldan Glucose [Mass/Vol] 193 mg/dL Critically high 74-106 [facility] Comment on above: Performed By: #### M G, RENAL, URIC #### [facility] [address] [place] [address] Dr. Shayne Roldan Phosphate [Mass/Vol] 3.2 mg/dL Normal 2.6-4.7 [facility] Comment on above: Performed By: #### M G, RENAL, URIC #### [facility] [address] [place] [address] Dr. Shayne Roldan Potassium [Moles/Vol] 3.9 mmol/L Normal 3.5-5.1 [facility] Comment on above: Performed By: #### M G, RENAL, URIC #### [facility] [address] [place] [address] Dr. Shayne Roldan Sodium [Moles/Vol] 140 mmol/L Normal 136-145 [facility] Comment on above: Performed By: #### M G, RENAL, URIC #### [facility] [address] [address] [address] Shayne Roldan Urea nitrogen [Mass/Vol] 17.0 mg/dL Normal 7.0-18.0 [facility] Comment on above: Performed By: #### M G, RENAL, URIC #### [facility] [address] [address] [address] Shayne Roldan UA RANDOM W/MICROSCOPICon BACTERIA TRACE Abnormal NONE SEEN [facility] Comment on above: Performed By: #### M G, RENAL, URIC #### [facility] [address] [place] [address] Dr. Shayne Roldan Bilirubin Ql (U) Negative Normal NEGATIVE [facility] Comment on above: Performed By: #### M G, RENAL, URIC #### [facility] [address] [address] [address] Shayne Roldan CAST NONE SEEN Normal NONE SEEN [facility] Comment on above: Performed By: #### M G, RENAL, URIC #### [facility] [address] [address] [address] Shayne Roldan Clarity (U) CLEAR Normal CLEAR [facility] Comment on above: Performed By: #### M G, RENAL, URIC #### [facility] [address] [address] [address] Shayne Roldan Color (U) LT. YELLOW Normal YELLOW [facility] Comment on above: Performed By: #### M G, RENAL, URIC #### [facility] [address] [address] [address] Shayne Roldan Crystals LM Nom (Urine sed) NONE SEEN Normal NONE SEEN [facility] Comment on above: Performed By: #### M G, RENAL, URIC #### [facility] [address] [address] [address] Shayne Roldan Epithelial cells LM Ql (Urine sed) RARE Normal NONE SEEN /RARE [facility] Comment on above: Performed By: #### M G, RENAL, URIC #### [facility] [address] [address] [address] Shayne Roldan Glucose Ql (U) Negative Normal NEGATIVE [facility] [place] Comment on above: Performed By: #### M G, RENAL, URIC #### [facility] [address] [address] [address] Shayne Roldan Hemoglobin Ql (U) Negative Normal NEGATIVE [facility] Comment on above: Performed By: #### M G, RENAL, URIC #### [facility] [address] [address] [address] Shayne Roldan Ketones Ql (U) Negative Normal NEGATIVE [facility] [place] Comment on above: Performed By: #### M G, RENAL, URIC #### [facility] [address] [address] [address] Shayne Roldan LEUKOCYTES Negative Normal NEGATIVE [facility] Comment on above: Performed By: #### M G, RENAL, URIC #### [facility] [address] [address] [address] Shayne Roldan MUCOUS NONE SEEN Normal NONE SEEN [facility] Comment on above: Performed By: #### M G, RENAL, URIC #### [facility] [address] [address] [address] Shayne Roldan Nitrite Ql (U) Negative Normal NEGATIVE [facility] [place] Comment on above: Performed By: #### M G, RENAL, URIC #### [facility] [address] [address] [address] Shayne Roldan pH (U) 5.0 [pH] Normal 5-9 [facility] Comment on above: Performed By: #### M G, RENAL, URIC #### [facility] [address] [address] [address] Shayne Roldan RBC 0-2 Normal 0-2 [facility] Comment on above: Performed By: #### M G, RENAL, URIC #### [facility] [address] [address] [address] Shayne Roldan SPEC GRAVITY 1.025 Normal 1.005-<=1.025 [facility] Comment on above: Performed By: #### M G, RENAL, URIC #### [facility] [address] [address] [address] Shayne Roldan UA PROTEIN Negative Normal NEGATIVE/ TRACE [facility] Comment on above: Performed By: #### M G, RENAL, URIC #### [facility] [address] [address] [address] Shayne Roldan Urobilinogen Qn (U) 0.2 {Rogelio'U}/dL Normal 0.2 - 1. 0 [facility] Comment on above: Performed By: #### M G, RENAL, URIC #### [facility] [address] [place] [address] Dr. Shayne Roldan WBC 0-2 Abnormal NONE SEEN [facility] Comment on above: Performed By: #### M G, RENAL, URIC #### [facility] [address] [place] [address] Dr. Shayne Roldan URIC ACID SERUMon 02-25-2023 Urate [Mass/Vol] 6.1 mg/dL Critically high 2.6-6.0 [facility] Comment on above: Performed By: #### M G, RENAL, URIC #### [facility] [address] [address] [address] Shayne Roldan URINE T PROTEIN CREAT RATIOo n 02-25-2023 Protein (U) [Mass/Vol] 13.0 mg/dL Critically high <=12.0 [facility] Comment on above: Performed By: #### M G, RENAL, URIC #### [facility] [address] [place] [address] Dr. Shayne Roldan UR PROT CREAT RAT 0.16 Normal [address] [facility] Comment on above: Performed By: #### M G, RENAL, URIC #### [facility] [address] [place] [address] Dr. Shayne Roldan URINE CREAT 83.60 mg/dL Normal 20.00-300.[address] [facility] Comment on above: Performed By: #### M G, RENAL, URIC #### [facility] [address] [place], [place] [address] Dr. Shayne Roldan VITAMIN D 25 OHon 02-25-2023 VIT D 25-OH 41.6 ng/mL Normal [facility] Comment on above: Performed By: #### M G, RENAL, URIC #### [facility] [address] [place], [place] [address] Dr. Shayne Roldan VIT D RANGES SEE BELOW Normal [facility] Comment on above: Result Comment: <20 ng/mL Vit D deficient 20 - <30 ng/mL Vit D insufficient 30 - 100 ng/mL Vit D sufficient >100 ng/mL Potential Toxicity Performed By: #### M G, RENAL, URIC #### [facility] [address] [place], [place] [address] Dr. Shayne Roldan XR CHEST 2 Von [...] BRITTANY GALDAMEZ Date: 2023-02-22 16:15 Normal [facility] MAMM SCREEN 3D PRATEEK CADon 12-15-2022 MAMM SCREEN 3D PRATEEK CAD Patient: DIANA CHAMPION Exam Date: 12/15/2022 : 1955 Gender:F Ordering : DR JACK HALL . Admission #: [id number] Family : Order #: [id number] CLICK HERE TO VIEW EXAM RADIOLOGY REPORT PROCEDURE: MAMMOGRAM SCREENING 3D BILATERAL CAD COMPARISON: MG MAMM SCREEN 3D PRATEEK CAD, 11/26/2021. INDICATIONS: [...] Walters MD on 12/15/2022 at 10:51 Normal [facility] XR DEXA BONE DENSITYon 12-15 XR [...] by: STEPH GRANADOS Date: 2022-12-15 09:50 Normal [facility] Fran 12-08-2022 L - -------- Specimen: [id number] Received: 12/08/22 Status: CELIA Eliza Num: [id number] Spec Type: Surgical Subm Dr: Gato Domingo MD Tissues: A Colon Biopsy (DESC COL POLYP) Procedures: HE/2, Gross/Micro L4 -------- Age/ Patient Sex Location Account Attending Physician -------- Diana Champion 67/F [id number] Gato Domingo MD -------- SPEC NUM: [id number] RECD: 12/08/22 STATUS: CELIA MARTIN NUM: [id number] KENDRA: 12/08/22 [facility] DR: Gato Domingo MD ENTERED: 12/08/22-[address] [facility] [address]: KHRIS TYPE: Surgical DEPT: S ENTERED BY: [id number] RECV BY: [id number] ORDERED: HE/2, Gross/Micro L4 ORDERED: HE/2, Gross/Micro [...] support the above pathologic diagnosis. CPT Codes 57732 -------- -------- Specimen: [id number] Received: 12/08/22 Status: CELIA Eliza Num: [id number] Spec Type: Surgical Subm Dr: Gato Domingo MD Tissues: A Colon Biopsy (DESC COL POLYP) Procedures: FLORENCIA/Shagufta Douglass/Micro L4 -------- Patient: Diana Champion [id number] (Continued) -------- Signed (signature on file) Eunice Rosa MD 12/09/22 1053 [facility] PAP ACOG PANEL 2: 30 to 65on 11-16-2022 . . Normal [facility] Comment on above: Performed By: #### [id number] #### [facility] [address] [address] [address] Shayne Roldan Age Gdln ACOG Testing Comment [facility] Comment on above: Result Comment: <21 or >65 or no age provided Performed By: #### [id number] #### [facility] [address] [address] [address] Shayne Roldan DIAGNOSIS: Comment [facility] Comment on above: Result Comment: NEGA TIVE FOR INTRAEPITHELIAL LESION OR MALIGNANCY. Performed By: #### [id number] #### [facility] [address] [place] [address] Dr. Shayne Roldan Methodology: Comment [facility] Comment on above: Result Comment: This liquid based ThinPrep(R) pap test was screened with the use of an image guided system. Performed By: #### [id number] #### [facility] [address] [place] [address] Dr. Shayne Roldan Note: Comment [facility] Comment on above: Result Comment: The Pap smear is a screening test designed to aid in the detection of premalignant and malignant conditions of the uterine cervix. It is not a diagnostic procedure and should not be used as the sole means of detecting cervical cancer. Both false-positive and false-negative reports do occur. . Performed By: #### [id number] #### [facility] [address] [place] [address] Dr. Shayne Roldan Performed by: Comment Normal [facility] Comment on above: Result Comment: Onur Aguilar Estimator Binding (ASCP) Performed By: #### [id number] #### [facility] [address] [place] [address] Dr. Shayne Roldan Specimen adequacy: Comment [facility] Comment on above: Result Comment: Sati sfactory for evaluation. Endocervical and/or squamous metaplastic cells (endocervical component) are present. Performed By: #### [id number] #### [facility] [address] [place] [address] Dr. Shayne Roldan RENAL FUNCTION PANELon 08-19 Albumin [Mass/Vol] 3.4 g/dL Normal 3.4-5.0 [facility] Comment on above: Performed By: #### M G, RENAL, URIC #### [facility] [address] [address] [address] Shayne Roldan Calcium [Mass/Vol] 8.4 mg/dL Critically low 8.5-10.1 [facility] Comment on above: Performed By: #### M G, RENAL, URIC #### [facility] [address] [address] [address] Shayne Roldan Chloride [Moles/Vol] 103 mmol/L Normal 98-107 [facility] Comment on above: Performed By: #### M G, RENAL, URIC #### [facility] [address] [place] [address] Dr. Shayne Roldan CO2 [Moles/Vol] 27.8 mmol/L Normal 21.0-32.0 [facility] Comment on above: Performed By: #### M G, RENAL, URIC #### [facility] [address] [address] [address] Shayne Roldan Creatinine [Mass/Vol] 1.02 mg/dL Normal 0.55-1.02 [facility] Comment on above: Performed By: #### M G, RENAL, URIC #### [facility] [address] [address] [address] Shayne Roldan EGFR-AF TUVALUAN >60 Normal >=60 [facility] Comment on above: Performed By: #### M G, RENAL, URIC #### [facility] [address] [address] [address] Shayne Roldan EGFR-NON AF TUVALUAN 54 mL/min/1.73m2 Critically low >=60 [facility] Comment on above: Performed By: #### M G, RENAL, URIC #### [facility] [address] [address] [address] Shayne Roldan Glucose [Mass/Vol] 110 mg/dL Critically high 74-106 T [facility] Comment on above: Performed By: #### M G, RENAL, URIC #### [facility] [address] [place] [address] Dr. Shayne Roldan Phosphate [Mass/Vol] 2.3 mg/dL Critically low 2.6-4.7 [facility] Comment on above: Performed By: #### M G, RENAL, URIC #### [facility] [address] [place] [address] Dr. Shayne Roldan Potassium [Moles/Vol] 3.2 mmol/L Critically low 3.5-5.1 [facility] Comment on above: Performed By: #### M G, RENAL, URIC #### [facility] [address] [place] [address] Dr. Shayne Roldan Sodium [Moles/Vol] 138 mmol/L Normal 136-145 [facility] Comment on above: Performed By: #### M G, RENAL, URIC #### [facility] [address] [place] [address] Dr. Shayne Roldan Urea nitrogen [Mass/Vol] 14.0 mg/dL Normal 7.0-18.0 [facility] Comment on above: Performed By: #### M G, RENAL, URIC #### [facility] [address] [place] [address] Dr. Shayne Roldan PTH INTACTon 08-06-2022 PTH, Intact 40 pg/mL Normal 15-65 [facility] Comment on above: Performed By: #### M G, RENAL, URIC #### [facility] [address] [place] [address] Dr. Shayne Roldan HEMOGRAM AND PLATELon 2021 Hematocrit (Bld) [Volume fraction] 39.8 % Normal 36.0-48.0 [facility] Comment on above: Performed By: #### M G, RENAL, URIC #### [facility] [address] [place] [address] Dr. Shayne Roldan Hemoglobin (Bld) [Mass/Vol] 13.4 g/dL Normal 12.0-16.0 [facility] Comment on above: Performed By: #### M G, RENAL, URIC #### [facility] [address] [address] [address] Shayne Roldan MCH (RBC) [Entitic mass] 30.5 pg Normal 26.7-34.0 [facility] Comment on above: Performed By: #### M G, RENAL, URIC #### [facility] [address] [place] [address] Dr. Shayne Roldan MCHC (RBC) [Mass/Vol] 33.7 g/dL Normal 29.9-35.2 [facility] Comment on above: Performed By: #### M G, RENAL, URIC #### [facility] [address] [place] [address] Dr. Shayne Roldan MCV (RBC) [Entitic vol] 90.5 fL Normal 81.0-99.0 [facility] Comment on above: Performed By: #### M G, RENAL, URIC #### [facility] [address] [place] [address] Dr. Shayne Roldan PLT 299 103/ul Normal 150-450 [facility] Comment on above: Performed By: #### M G, RENAL, URIC #### [facility] [address] [place] [address] Dr. Shayne Roldan RBC 4.40 106/ul Normal 4.20-5.40 [facility] Comment on above: Performed By: #### M G, RENAL, URIC #### [facility] [address] [place] [address] Dr. Shayne Roldan WBC 8.8 103/ul Normal 4.0-11.0 [facility] Comment on above: Performed By: #### M G, RENAL, URIC #### [facility] [address] [place] [address] Dr. Shayne Roldan MAGNESIUMon 08-05-2022 Magnesium [Mass/Vol] 1.5 mg/dL Critically low 1.8-2.4 [facility] Comment on above: Performed By: #### M G, RENAL, URIC #### [facility] [address] [place] [address] Dr. Shayne Roldan RENAL FUNCTION PANELon 08-05 Albumin [Mass/Vol] 3.5 g/dL Normal 3.4-5.0 [facility] Comment on above: Performed By: #### M G, RENAL, URIC #### [facility] [address] [address] [address] Shayne Roldan Calcium [Mass/Vol] 8.4 mg/dL Critically low 8.5-10.1 Th e [facility] Comment on above: Performed By: #### M G, RENAL, URIC #### [facility] [address] [address] [address] Shayne Roldan Chloride [Moles/Vol] 101 mmol/L Normal 98-107 [facility] Comment on above: Performed By: #### M G, RENAL, URIC #### [facility] [address] [place] [address] Dr. Shayne Roldan CO2 [Moles/Vol] 29.5 mmol/L Normal 21.0-32.0 [facility] Comment on above: Performed By: #### M G, RENAL, URIC #### [facility] [address] [place] [address] Dr. Shayne Roldan Creatinine [Mass/Vol] 1.04 mg/dL Critically high 0.55-1.02 [facility] Comment on above: Performed By: #### M G, RENAL, URIC #### [facility] [address] [place] [address] Dr. Shayne Roldan EGFR-AF TUVALUAN >60 Normal >=60 [facility] Comment on above: Performed By: #### M G, RENAL, URIC #### [facility] [address] [place] [address] Dr. Shayne Roldan EGFR-NON AF TUVALUAN 53 mL/min/1.73m2 Critically low >=60 The [facility] Comment on above: Performed By: #### M G, RENAL, URIC #### [facility] [address] [place] [address] Dr. Shayne Roldan Glucose [Mass/Vol] 92 mg/dL Normal 74-106 [facility] Comment on above: Performed By: #### M G, RENAL, URIC #### [facility] [address] [place], [place] [id number] Dr. Shayne Roldan Phosphate [Mass/Vol] 2.4 mg/dL Critically low 2.6-4.7 [facility] Comment on above: Performed By: #### M G, RENAL, URIC #### [facility] [address] [place] [address] Dr. Shayne Roldan Potassium [Moles/Vol] 2.8 mmol/L Critically low 3.5-5.1 [facility] Comment on above: Performed By: #### M G, RENAL, URIC #### [facility] [address] [place] [address] Dr. Shayne Roldan Sodium [Moles/Vol] 137 mmol/L Normal 136-145 [facility] Comment on above: Performed By: #### M G, RENAL, URIC #### [facility] [address] [place] [address] Dr. Shayne Roldan Urea nitrogen [Mass/Vol] 10.0 mg/dL Normal 7.0-18.0 [facility] Comment on above: Performed By: #### M G, RENAL, URIC #### [facility] [address] [place] [address] Dr. Shayne Roldan UA RANDOM W/MICROSCOPICon BACTERIA SMALL Abnormal NONE SEEN The [facility] Comment on above: Performed By: #### U AMIC #### [facility] [address] [place] [address] Dr. Shayne Roldan Bilirubin Ql (U) Negative Normal NEGATIVE [facility] Comment on above: Performed By: #### U AMIC #### [facility] [address] [place] [address] Dr. Shayne Roldan CAST NONE SEEN Normal NONE SEEN The [facility] Comment on above: Performed By: #### U AMIC #### [facility] [address] [place] [address] Dr. Shayne Roldan Clarity (U) CLEAR Normal CLEAR [facility] Comment on above: Performed By: #### U AMIC #### [facility] [address] [place] [address] Dr. Shayne Roldan Color (U) LT. YELLOW Normal YELLOW The [facility] Comment on above: Performed By: #### U AMIC #### [facility] [address] [address] [address] Shayne Roldan Crystals LM Nom (Urine sed) NONE SEEN Normal NONE SEEN [facility] Comment on above: Performed By: #### U AMIC #### [facility] [address] [address] [address] Shayne Roldan Epithelial cells LM Ql (Urine sed) FEW Abnormal NONE SEEN /RARE The [facility] Comment on above: Performed By: #### U AMIC #### [facility] [address] [address] [address] Shayne Roldan Glucose Ql (U) Negative Normal NEGATIVE The [facility] Comment on above: Performed By: #### U AMIC #### [facility] [address] [address] [address] Shayne Roldan Hemoglobin Ql (U) Negative Normal NEGATIVE The [facility] Comment on above: Performed By: #### U AMIC #### [facility] [address] [address] [address] Shayne Roldan Ketones Ql (U) Negative Normal NEGATIVE The [facility] Comment on above: Performed By: #### U AMIC #### [facility] [address] [address] [address] Shayne Roldan LEUKOCYTES TRACE Abnormal NEGATIVE The [facility] Comment on above: Performed By: #### U AMIC #### [facility] [address] [address] [address] Shayne Roldan MUCOUS NONE SEEN Normal NONE SEEN [facility] Comment on above: Performed By: #### U AMIC #### [facility] [address] [address] [address] Shayne Roldan Nitrite Ql (U) Negative Normal NEGATIVE The [facility] Comment on above: Performed By: #### U AMIC #### [facility] [address] [address] [address] Shayne Roldan pH (U) 6.0 [pH] Normal 5-9 [facility] Comment on above: Performed By: #### U AMIC #### [facility] [address] [place] [address] Dr. Shayne Roldan RBC NONE SEEN Abnormal 0-2 [facility] Comment on above: Performed By: #### U AMIC #### [facility] [address] [place] [address] Dr. Shayne Roldan SPEC GRAVITY <=1.005 Abnormal 1.005-<=1.025 [facility] Comment on above: Performed By: #### U AMIC #### [facility] [address] [place] [address] Dr. Shayne Roldan UA PROTEIN Negative Normal NEGATIVE/ TRACE The [facility] Comment on above: Performed By: #### U AMIC #### [facility] [address] [place] [address] Dr. Shayne Roldan Urobilinogen Qn (U) 0.2 {Rogelio'U}/dL Normal 0.2 - 1. 0 [facility] Comment on above: Performed By: #### U AMIC #### [facility] [address] [place] [address] Dr. Shayne Roladn WBC 5-10 Abnormal NONE SEEN The [facility] Comment on above: Performed By: #### U AMIC #### [facility] [address] [place] [address] Dr. Shayne Roldan URIC ACID SERUMon 08-05-2022 Urate [Mass/Vol] 6.5 mg/dL Critically high 2.6-6.0 [facility] Comment on above: Performed By: #### M G, RENAL, URIC #### [facility] [address] [place] [address] Dr. Shayne Roldan URINE T PROTEIN CREAT RATIOo n 08-05-2022 Protein (U) [Mass/Vol] 4.8 mg/dL Normal <=12.0 [facility] Comment on above: Performed By: #### U RTPCR #### [facility] [address] [place] [address] Dr. Shayne Roldan UR PROT CREAT RAT 0.09 Normal [address] [facility] Comment on above: Performed By: #### U RTPCR #### [facility] [address] [address] [address] Shayne Roldan URINE CREAT 52.65 mg/dL Normal 20.00-300.[address] [facility] Comment on above: Performed By: #### U RTPCR #### [facility] [address] [address] [address] Shayne Roldan VITAMIN D 25 OHon 08-05-2022 VIT D 25-OH 38.9 ng/mL Normal [facility] Comment on above: Performed By: #### M G, RENAL, URIC #### [facility] [address] [address] [address] Shayne Roldan VIT D RANGES SEE BELOW Normal [facility] Comment on above: Result Comment: <20 ng/mL Vit D deficient 20 - <30 ng/mL Vit D insufficient 30 - 100 ng/mL Vit D sufficient >100 ng/mL Potential Toxicity Performed By: #### M G, RENAL, URIC #### [facility] [address] [place] [address] Dr. Shayne Roldan IMMUNOGLOBULINS IGA/IGM/IGG/ IGE QUANTITAon 07-12-2022 Immunoglobulin A, Qn, Serum 295 mg/dL Normal 87-352 [facility] Comment on above: Result Comment: Perf ormed at: CB Performed By: #### M G, RENAL, URIC #### [facility] [address] [place] [address] Dr. Shayne Roldan Immunoglobulin E, Total 32 IU/mL Normal 6-495 [facility] Comment on above: Result Comment: Perf ormed at: BN Performed By: #### M G, RENAL, URIC #### [facility] [address] [address] [address] Shayne Roldan Immunoglobulin G, Qn, Serum 729 mg/dL Normal 586-1602 [facility] Comment on above: Result Comment: Perf ormed at: CB Performed By: #### M G, RENAL, URIC #### [facility] [address] [place] [address] Dr. Shayne Roldan Immunoglobulin M, Qn, Serum 75 mg/dL Normal 26-217 [facility] Comment on above: Result Comment: Perf ormed at: CB Performed By: #### M G, RENAL, URIC #### [facility] [address] [address] [address] Shayne Roldan Abstracton 07-08-2022 Abstract [id number] Nell Champion 1955 F Date Provider Department Center 07/08/2022 JOHANNA MEDINA [facility] Family History Problem Relation Age of Onset Heart failure Mother Heart disease Father Family Status - Relation Status Age at Mother Father Normal [facility] CBC AUTO DIFFon 07-05-2022 BASO # 0.1 103/ul Normal 0.0-0.1 [facility] Comment on above: Performed By: #### M G, RENAL, URIC #### [facility] [address] [place] [address] Dr. Shayne Roldan Basophils/100 WBC (Bld) 0.7 % Normal 0.2-2.0 [facility] Comment on above: Performed By: #### M G, RENAL, URIC #### [facility] [address] [address] [address] Shayne Roldan EO # 0.4 103/ul Normal 0.0-0.7 [facility] Comment on above: Performed By: #### M G, RENAL, URIC #### [facility] [address] [address] [address] Shayne Roldan Eosinophils/100 WBC (Bld) 4.4 % Normal 0.9-7.0 [facility] Comment on above: Performed By: #### M G, RENAL, URIC #### [facility] [address] [address] [address] Shayne Roldan Erythrocyte distribution width (RBC) [Ratio] 12.6 % Normal 11.0-15.0 [facility] Comment on above: Performed By: #### M G, RENAL, URIC #### [facility] [address] [place] [address] Dr. Shayne Roldan Hematocrit (Bld) [Volume fraction] 40.2 % Normal 36.0-48.0 [facility] Comment on above: Performed By: #### M G, RENAL, URIC #### [facility] [address] [address] [address] Shayne Roldan Hemoglobin (Bld) [Mass/Vol] 13.6 g/dL Normal 12.0-16.0 [facility] Comment on above: Performed By: #### M G, RENAL, URIC #### [facility] [address] [place] [address] Dr. Shayne Roldan IG # 0.07 10e3/ul Critically high 0.00-0.03 [facility] Comment on above: Performed By: #### M G, RENAL, URIC #### [facility] [address] [place] [address] Dr. Shayne Roldan IG % 0.8 % Critically high 0.0-0.5 [facility] Comment on above: Performed By: #### M G, RENAL, URIC #### [facility] [address] [place] [address] Dr. Shayne Roldan LYMPH # 2.3 103/ul Normal 1.2-3.8 [facility] Comment on above: Performed By: #### M G, RENAL, URIC #### [facility] [address] [place] [address] Dr. Shayne Roldan Lymphocytes/100 WBC (Bld) 24.7 % Normal 20.5-60.0 [facility] Comment on above: Performed By: #### M G, RENAL, URIC #### [facility] [address] [place] [address] Dr. Shayne Roldan MANUAL DIFF REQ NO Normal [facility] Comment on above: Performed By: #### M G, RENAL, URIC #### [facility] [address] [place] [address] Dr. Shayne Roldan MCH (RBC) [Entitic mass] 30.7 pg Normal 26.7-34.0 [facility] Comment on above: Performed By: #### M G, RENAL, URIC #### [facility] [address] [place] [address] Dr. Shayne Roldan MCHC (RBC) [Mass/Vol] 33.8 g/dL Normal 29.9-35.2 [facility] Comment on above: Performed By: #### M G, RENAL, URIC #### [facility] [address] [place] [address] Dr. Shayne Roldan MCV (RBC) [Entitic vol] 90.7 fL Normal 81.0-99.0 [facility] Comment on above: Performed By: #### M G, RENAL, URIC #### [facility] [address] [place] [address] Dr. Shayne Roldan MONO # 0.7 103/ul Normal 0.3-0.8 [facility] Comment on above: Performed By: #### M G, RENAL, URIC #### [facility] [address] [place] [address] Dr. Shayne Roldan Monocytes/100 WBC (Bld) 7.7 % Normal 1.7-12.0 [facility] Comment on above: Performed By: #### M G, RENAL, URIC #### [facility] [address] [place] [address] Dr. Shayne Roldan NEUT # 5.7 103/ul Normal 1.4-6.5 [facility] Comment on above: Performed By: #### M G, RENAL, URIC #### [facility] [address] [place] [address] Dr. Shayne Roldan Neutrophils/100 WBC (Bld) 61.7 % Normal 43.0-75.0 [facility] Comment on above: Performed By: #### M G, RENAL, URIC #### [facility] [address] [place] [address] Dr. Shayne Roldan Platelet mean volume (Bld) [Entitic vol] 8.8 fL Critically low 9.5-13.5 [facility] Comment on above: Performed By: #### M G, RENAL, URIC #### [facility] [address] [place] [address] Dr. Shayne Roldan PLT 279 103/ul Normal 150-450 [facility] Comment on above: Performed By: #### M G, RENAL, URIC #### [facility] [address] [place] [address] Dr. Shayne Roldan RBC 4.43 106/ul Normal 4.20-5.40 [facility] Comment on above: Performed By: #### M G, RENAL, URIC #### [facility] [address] [place] [address] Dr. Shayne Roldan WBC 9.1 103/ul Normal 4.0-11.0 [facility] Comment on above: Performed By: #### M G, RENAL, URIC #### [facility] [address] [place] [address] Dr. Shayne Roldan Covid-19 PCR ([facility])on SARS-CoV-2 (COVID-19) RNA KAYLEE+probe Ql (Unsp [...] for this test is supported by the District Loss Prevention Manager of Health and Human Service's (HHS's) declaration [...] #### [facility] [address] [place] [address] Dr. Shayne Roldan XR CHEST 2 Von [...] for this test is supported by the District Loss Prevention Manager of Health and Human Service's (HHS's) declaration [...] consistent with SARS-CoV-2. Performed By: #### [facility] #### [facility] [address] [place] [address] Dr. Shayne Roldan DEXA AXIAL 03-01-2022 DEXA AXIAL [facility] Department of Radiology [address] [place] [id number] Patient Name: DIANA CHAMPION : 1955 [...] characteristics. Electronically signed: Luzma Fernandez. Transcribed by: [email or web address], User Resident: Electronically Signed by: LUZMA FERNANDEZ @ 03/02/2022 01:07 PM Normal [facility] SCOLIOSIS 2 VWSon 02-24-2022 SCOLIOSIS 2 [facility] Department of Radiology [address] [place] [id number] Patient Name: DIANA CHAMPION : 1955 Sex: F Age: Race: White Pt. Location: Patient Status: D Ordered Date: 02/24/2022 1:25:00 PM Completed Date: 02/24/2022 01:44 PM Requesting Provider: CINDA ANTONIO Attending Provider: Report Copy To: Signs & Symptoms: M43.10 Spondylolisthesis, site unspecified I10 History: Comments: Views (X-RAY, SCOLIOSIS): PA, Lateral evaluate Exam: SCOLIOSIS 2 [facility] Scoliosis. Worsening pain. Frontal and lateral thoracolumbar spine IMPRESSION: 1. Diffuse disc disease and facet arthritis. Right convex mid lumbar curvature measuring 16 degrees. Interbody fusion hardware lower lumbar spine. Electronically signed: Hugo Lynn. Transcribed by: Tanesha, User Resident: Electronically Signed by: HUGO LYNN @ 02/26/2022 11:07 AM Normal [facility] Comment on above: Order Comment: Views (X-RAY, SCOLIOSIS): PA, Lateral evaluate CT LUMBAR SPINE W CONTRASTon 01-24-2022 CT LUMBAR SPINE W CONTRAST [facility] Department of Radiology [address] [place] [phone] Patient Name: DIANA CHAMPION : 1955 Sex: F Age: Race: White Pt. Location: Patient Status: D Ordered Date: 01/09/2022 9:00:00 AM Completed Date: 01/24/2022 03:26 PM Requesting Provider: JOO LINN Attending Provider: JOO LINN Report Copy To: UNKNOWN, PHYSICIAN Signs & Symptoms: M54.16 Radiculopathy, lumbar region I10 History: [place] Comments: , CT MYELOGRAM>PAPER WORK IN CHART [...] L1-2. Electronically signed: Gaurang Lawrence. Transcribed by: [email or web address], User Resident: Electronically Signed by: GAURANG LAWRENCE @ 01/26/2022 08:58 AM Normal [facility] Comment on above: Order Comment: , CT MYELOGRAM>PAPER WORK IN CHART LUMBAR MYELOGRAMon 2 LUMBAR MYELOGRAM [facility] Department of Radiology [address] [place] [phone] Patient Name: DIANA CHAMPION : 1955 Sex: F Age: Race: White Pt. Location: Patient Status: O Ordered Date: 01/09/2022 9:00:00 AM Completed Date: 01/24/2022 02:37 PM Requesting Provider: JOO LINN Attending Provider: JOO LINN Report Copy To: UNKNOWN, PHYSICIAN Signs & Symptoms: M54.16 Radiculopathy, lumbar region I10 History: [place] Is patient on thinners? 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 Consent was obtained. Timeout: [place] protocol timeout verification performed. PROCEDURE: Estimated blood [...] report. Electronically signed: Greg Marlow. Transcribed by: [email or web address], User Resident: DEBBIE JI Electronically Signed by: GREG MARLOW @ 01/24/2022 04:07 PM I personally read this/these film(s) with this resident Normal [facility] Comment on above: Order Comment: , CT MYELOGRAM> PAPER WORK SCANNED IN CHART , CT MYELOGRAM> PAPER WORK SCANNED IN CHART , , , Ordering Provider - JOO LINN MD , HIP LEFT 1 OR 2 VWS WITH PEL VISon 01-06-2022 HIP LEFT 1 OR 2 VWS WITH PELVIS [facility] Department of Radiology [address] [place] [address] [id number] Patient Name: DIANA CHAMPION : 1955 [...] hardware. Electronically signed: Joe Matthew. Transcribed by: [email or web address], User Resident: Electronically Signed by: JOE MATTHEW @ 01/09/2022 04:45 PM Normal [facility] Comment on above: Order Comment: Evalu ate Vital Signs Date Time Vital Sign Value Performing Clinician Facility 08-17-2023 09:20-0400 Body height 165.1 cm Herberth Joana Other [facility] Other 08-17-2023 09:20-0400 Body mass index (BMI) [Ratio] 38.1 kg/m2 Herberth Joana Other [facility] Other 08-17-2023 09:20-0400 Body temperature 98.8 [degF] Herberth Joana Other [facility] Other 08-17-2023 09:20-0400 Body weight 103.87 kg Herberth Joana Other [facility] Other 08-17-2023 09:20-0400 Diastolic blood pressure 85 mm[Hg] Herberth Joana Other [facility] Other 08-17-2023 09:20-0400 Respiratory rate 18 /min Herberth Joana Other [facility] Other 08-17-2023 09:20-0400 SaO2% (BldA) [Mass fraction] 94 % Herberth Joana Other [facility] Other 08-17-2023 09:20-0400 Systolic blood pressure 151 mm[Hg] Herberth Joana Other [facility] Other 03-02-2023 10:00-0400 Body height 165.1 cm Herberth Joana Other [facility] Other 03-02-2023 10:00-0400 Body mass index (BMI) [Ratio] 37.29 kg/m2 Herberth Joana Other [facility] Other 03-02-2023 10:00-0400 Body temperature 98.9 [degF] Herberth Joana Other [facility] Other 03-02-2023 10:00-0400 Body weight 101.65 kg Herberth Joana Other [facility] Other 03-02-2023 10:00-0400 Diastolic blood pressure 76 mm[Hg] Herberth Joana Other [facility] Other 03-02-2023 10:00-0400 Respiratory rate 20 /min Herberth Joana Other [facility] Other 03-02-2023 10:00-0400 SaO2% (BldA) [Mass fraction] 96 % Herberth Joana Other [facility] Other 03-02-2023 10:00-0400 Systolic blood pressure 136 mm[Hg] Herberth Joana Other [facility] [employer] Other 12-08-2022 09:30-0500 Diastolic blood pressure 59 mm[Hg] MD Shaikh Ohara Work Phone: [facility] 12-08-2022 09:30-0500 Heart rate 55 /min MD Shaikh Ohara Work Phone: [facility] 12-08-2022 09:30-0500 Respiratory rate 16 /min MD Shaikh Ohara Work Phone: [facility] 12-08-2022 09:30-0500 SaO2% (BldA) [Mass fraction] 96 % MD Shaikh Ohara Work Phone: [facility] 12-08-2022 09:30-0500 Systolic blood pressure 112 mm[Hg] MD Shaikh Ohara Work Phone: [facility] 12-08-2022 06:54-0500 Body height 162.56 cm MD Shaikh Ohara Work Phone: [facility] 12-08-2022 06:54-0500 Body temperature 98.2 [degF] MD Shaikh Ohara Work Phone: [facility] 12-08-2022 06:54-0500 Body weight 104.32 kg MD Shaikh Ohara Work Phone: [facility] 08-09-2022 11:00-0400 Body height 165.1 cm Herberth Joana Other [facility] Other 08-09-2022 11:00-0400 Body mass index (BMI) [Ratio] 37.87 kg/m2 Herberth Joana Other [facility] Other 08-09-2022 11:00-0400 Body temperature 97.2 [degF] Herberth Joana Other [facility] Other 08-09-2022 11:00-0400 Body weight 103.24 kg Herberth Joana Other [facility] Other 08-09-2022 11:00-0400 Diastolic blood pressure 88 mm[Hg] Herberth Joana Other [facility] Other 08-09-2022 11:00-0400 Respiratory rate 20 /min Herberth Joana Other [facility] Other 08-09-2022 11:00-0400 SaO2% (BldA) [Mass fraction] 95 % Herberth Joana Other [facility] Other 08-09-2022 11:00-0400 Systolic blood pressure 133 mm[Hg] Herberth Joana Other [facility] Other 11-17-2021 10:40-0500 Body height 165.1 cm Herberth Joana Other [facility] Other 11-17-2021 10:40-0500 Body mass index (BMI) [Ratio] 37.97 kg/m2 Herberth Joana Other [facility] Other 11-17-2021 10:40-0500 Body temperature 97.8 [degF] Herberth Joana Other [facility] Other 11-17-2021 10:40-0500 Body weight 103.51 kg Herberth Joana Other [facility] Other 11-17-2021 10:40-0500 Diastolic blood pressure 70 mm[Hg] Herberth Joana Other [facility] Other 11-17-2021 10:40-0500 Respiratory rate 18 /min Herberth Joana Other [facility] Other 11-17-2021 10:40-0500 SaO2% (BldA) [Mass fraction] 94 % Herberth Joana Other [facility] Other 11-17-2021 10:40-0500 Systolic blood pressure 130 mm[Hg] Herberth Joana Other [facility] Other 08-30-2021 13:15-0400 Body height 165.1 cm Rena Ginty Other [facility] Other 08-30-2021 13:15-0400 Body mass index (BMI) [Ratio] 36.61 kg/m2 Rean Ginty Other [facility] Other 08-30-2021 13:15-0400 Body temperature 98.7 [degF] Erna Ginty Other [facility] Other 08-30-2021 13:15-0400 Body weight 99.79 kg Rena Ginty Other [facility] Other 08-30-2021 13:15-0400 SaO2% (BldA) [Mass fraction] 90 % Rena Ginty Other [facility] Other Encounters Encounter Date Encounter Type Care Provider Facility Start: 11-02-2023 End: 11-02-2023 ambulatory SAUNDERS FAWWAD Not Available Start: 10-09-2023 End: 10-10-2023 ambulatory Jayshree Vargas MD Facility:[facility] Start: 10-04-2023 End: 10-04-2023 ambulatory SAUND[facility] FAWWAD Not Available Start: 09-07-2023 End: 09-07-2023 ambulatory Herberth Joana Other [facility] Other Start: 09-07-2023 Telephone encounter Herberth Joana [facility] Start: 08-28-2023 End: 08-28-2023 ambulatory Herberth Joana Other [facility] Other Start: 08-28-2023 Telephone encounter Herberth Joana [facility] Start: 08-21-2023 End: 08-22-2023 ambulatory Jayshree Vargas MD Facility:[facility] Start: 08-17-2023 End: 08-17-2023 ambulatory Herberth Joana Other [facility] [employer] Other Start: 08-17-2023 Office outpatient visit 25 minutes Herberth Joana [facility] [place] Start: 05-08-2023 End: 05-08-2023 [facility] Start: 04-04-2023 End: 04-04-2023 ambulatory SHAIKH Dimitry OHARA Facility:[facility] Start: 03-24-2023 End: 03-25-[address] STEPH GRANADOS Facility:[facility] Start: 03-23-2023 ambulatory JOO [facility] Start: 03-02-2023 End: 03-02-2023 ambulatory Herberth Joana Other [facility] [employer] Other Start: 03-02-2023 Office outpatient visit 25 minutes Herberth Joana [facility] Start: 02-25-2023 End: 02-26-2023 ambulatory HERBERTH JOANA Facility:[facility] Start: 02-22-2023 End: 02-23-2023 ambulatory BO JOHNY . Facility:[facility] Start: 12-15-2022 End: 12-16-[address] JACK HALL . Facility:[facility] Start: 12-08-2022 End: 12-08-2022 ambulatory Shaikh Lev Facility:[facility] Start: 12-08-2022 End: 12-08-2022 Admission to same day surgery center MD Shaikh Ohara Work Phone: [facility] Work Phone: Start: 12-08-2022 End: 12-08-2022 ambulatory MD Shaikh Ohara Work Phone: [facility] Work Phone: Start: 11-11-2022 End: 11-11-[address] JACK HALL . Facility:[facility] Start: 11-09-2022 End: 11-09-2022 ambulatory Gilma Ruelashous Other [facility] Other Start: 11-09-2022 Telephone encounter Azkatherine Ruelashous [facility] Start: 08-19-2022 End: 08-20-2022 ambulatory HERBERTH JOANA Facility:[facility] Start: 08-09-2022 End: 08-09-2022 ambulatory Herberth Joana Other [facility] Other Start: 08-09-2022 Office outpatient visit 10 minutes Herberth Joana [facility] Start: 08-09-2022 Telephone encounter Herberth Joana [facility] Start: 08-05-2022 Telephone encounter Herberth Joana [facility] Start: 08-05-2022 End: 08-06-2022 ambulatory HERBERTH JOANA [facility] [employer] Other Start: 07-08-2022 End: 07-08-2022 ambulatory Gato Domingo Other [facility] Other Start: 07-08-2022 Telephone encounter Gato Cesar ck [facility] Start: 07-05-2022 End: 07-06-2022 ambulatory SAUNDERS H FAWWAD Facility:[facility] Start: 06-08-2022 End: 06-09-2022 ambulatory SAUNDERS H FAWWAD Facility:[facility] Start: 06-07-2022 End: 06-07-2022 ambulatory SAUNDERS H FAWWAD Facility:[facility] Start: 01-24-2022 End: 01-25-2022 ambulatory PHYSICIAN UNKNOWN Facility:[facility] Start: 11-17-2021 End: 11-17-2021 ambulatory Herberth Joana Other [facility] Other Start: 11-17-2021 Office outpatient visit 15 minutes Herberth Joana [facility] Start: 08-30-2021 Office outpatient visit 15 minutes Rena Hurd [facility] Start: 09-11-2020 End: 09-11-2020 Chart abstracting Miguelito Buck Work Phone: Hematology/Oncology Start: 09-11-2020 End: 09-11-2020 Patient encounter procedure External Provider [facility] Start: 09-11-2020 Results Only External Provider Exter [facility] Start: 09-30-2019 End: 09-30-2019 Patient encounter procedure [facility] [place] Start: 07-07-2017 End: 07-07-2017 Admission to day surgery [facility] Start: 05-24-2004 Evaluation and management of inpatient [facility] [place] Start: 04-26-2004 Evaluation and management of inpatient [facility] [place] Procedures Date Procedure Procedure Detail Performing Clinician Start: 12-08-2022 Colonoscopy MD Shaikh Ohara Work Phone: Start: 09-11-2020 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 Client Executive al Provider Start: 09-11-2020 EXTERNAL LAB External P rovider Start: 09-11-2020 EXTERNAL PROCEDURE Exte rnal Provider Start: 09-30-2019 Ultrasonography of b ilateral kidneys Steph Collier Plan of Treatment Date Care Activity Detail Author Start: 12-08-2022 [facility] Start: 07-07-2020 Influenza vaccination INFLUENZA (#1) [facility] Start: 2006 SHINGRIX VACCINE (1 of 2) SHINGRIX VACCINE (1 of 2) [facility] Start: 2006 Tuberculosis screening COLORECTAL CANCER SCREENING,SEE MODIFIER [facility] Start: 2001 DIABETES SCREEN DIABETES SCREEN [facility] Start: 2001 LIPID SCREEN LIPID SCREEN [facility] Start: 1996 Mammography MAMMOGRAM [facility] Start: 1986 HPV TESTING HPV TESTING [facility] Start: 1977 PAP TESTING PAP TESTING [facility] Start: 1975 Urine microalbumin profile DTAP,TDAP,TD (1 - Tdap) [facility] Start: 1974 HEPATITIS C SCREENING HEPATITIS C SCREENING [facility] Start: 1974 HIV SCREENING HIV SCREENING [facility] Patient Education Colon Polypect shahram Hemorrhoids (DC) Diverticulosis (DC) [facility] Work Phone: [facility] Ilean[facility] c Immunizations Immunization Date Immunization Notes Care Provider Henrietta tanmayfernanda 07-18-2018 Depo-Medrol 40 mg Rena Gint y Other [facility] Other 01-31-2018 Depo-Medrol 40 mg Rena Gint y Other [facility] Other 08-09-2017 influenza, seasonal, injectable, preservative free Rena Ginty Other [facility] Other Payers Date Payer Category Payer Unknown 2022 Self-pay [id number] 2021 Medicare [id number] 2020 Medicaid [id number] 2019 Medicaid MEDICAID [facility] MEDICAID [id number] 2019-Present Medicaid [id number] 2016 Medicare MEDICARE MEDICAR E A AND B [id number] 2016-Present [place] Medicare [id number] 1959 Unknown [id number] 1955 Unknown [id number] 2.16.840.1.744843.3.579.2.647 1955 Unknown [id number] 2.16.840.1.830950.3.579.2.593 1955 Unknown [id number] 2.16.840.1.657755.3.579.2.593 1956 Unknown [id number] 2.16.840.1.676515.3.579.2.593 1956 Unknown [id number] 2.16.840.1.127053.3.579.2.593 1956 Unknown [id number] 2.16.840.1.977696.3.579.2.593 1956 Unknown [id number] 2.16.840.1.220087.3.579.2.593 1956 Unknown [id number] 2.16.840.1.783706.3.579.2.593 1956 Unknown [id number] 2.16.840.1.429956.3.579.2.593 1956 Unknown [id number] 2.16.840.1.007434.3.579.2.593 1956 Unknown [id number] 2.16.840.1.757571.3.579.2.593 1956 Unknown [id number] 2.16.840.1.087235.3.579.2.593 1956 Unknown [id number] 2.16.840.1.238600.3.579.2.196 1955 Unknown [id number] 2.16.840.1.390324.3.579.2.196 1955 Unknown [id number] 2.16.840.1.576252.3.579.2.1259 1956 Unknown [id number] 2.16.840.1.684112.3.579.2.1259 Medicare [id number] Unknown HCAP/HFA/FAP Active [id number] Unknown [id number] [id number] Social History Date Type Detail Facility Tobacco smoking stat us KSIS Unknown if ever smoked [facility] Start: 1955 Sex Assigned At Female F [facility] Start: 09-11-2020 End: 12-08-2022 Tobacco smoking status NHIS Never smoker [facility] Start: 09-11-2020 Tobacco use and exposure Never used [facility] Start: 09-11-2020 Alcohol intake Lifetime non-d my (finding) [facility] Start: 09-11-2020 History SDOH Alcohol Frequency 1 [facility] Sex Assigned At Not on file [facility] Sex Assigned At Sex Assigned At Bir th [facility] [employer] Other Goals Date Patient Goal Desired Activity /State Clinical Notes 08-30-2021 to 09-07-2023 Note Date & Type Note Facility 09-07-2023 Evaluation note Encounter Date Diagnosis Assessment Notes Sep, Hypomagnesemia (ICD-10 - E83.42) [facility] [employer] Other 10-23-2023 Evaluation note* Encounter Date Diagnosis Assessment Notes Treatment Notes Treatment Clinical Notes Aug, Nico lopez w cr kid I-IV (ICD-10 - I12.9) [facility] [employer] Other 10-12-2023 Evaluation note* Encounter Date Diagnosis [...] PPI induced GI losses. Continue oral Magnesium [facility] Chief Complaint: Patient here for 1 year follow up CAD and hypertension. She was recently discharged from [facility] for Covid-19. She says hydrochlorothiazide was stopped and she isn't sure why. Has some intermittent chest pain and gets very SOB with ambulation. She sees Dr. Lopes for COPD. HPI: Diana Champion is a 67 y.o. female With a history of nonobstructive coronary artery disease and hypertension here in follow-up. She was diagnosed with COVID at the end of March. She has been more short of breath since then. She has seen her scabbler. Her chest pain is noncardiac. She has [...] 325 mg by mouth., Disp: , Rfl: brkfzakktal-rqdurecyp-sailinql 100-62.5-25 mcg blister with device, , Disp: [...] CTAB, no increased eff (more content not included)...[facility]05-19-2023 NotePROCEDURE: XR HIP RT 2 3V W PELVIS HISTORY: Pain in right hip joint , chronic COMPARISON: XR L-spine 02/26/2019, XR left hip with pelvis 03/11/2017 FINDINGS: BONES:Complete loss of the right hip joint space with kpko-ct-ytxr articulation, subchondral sclerosis and cysts, and large periarticular degenerative osteophytes. No fracture or dislocation. Left hip replacement. Mechanical fusion of L5-S1 and moderate dextroscoliosis of lumbar spine. SOFT TISSUES:No visible soft tissue swelling. EFFUSION:None visible. OTHER: Negative. IMPRESSION: 1. Marked degenerative joint disease of the right hip; progressed since prior study. 2. Stable surgical changes. Electronically authenticated by: STEPH GRANADOS Date: 2023-03-24 12:55[facility]05-18-2023 NoteSubjective 03/23/23 Diana Champion is a [...] LIGATION Past Medical History: Diagnosis Date Cancer ([facility]) Hypertension Objective General: Body mass index [...] from the patient's PCP as well as scabbler for a right anterior total hip arthroplasty. [...] may be an additional personal documentation from me.[facility]04-27-2023 Evaluation note* Encounter Date Diagnosis Assessment [...] PPI induced GI losses. Continue oral Magnesium [facility] [employer] Other [facility]* Encounter Date Diagnosis Assessment Notes Treatment Notes Treatment Clinical Notes Nov, Hypokalemia (ICD-10 - E87.6) Nov, Hypomagnesemia (ICD-10 - E83.42) [facility] Other 10-04-2022 Evaluation note* Encounter Date Diagnosis [...] office does not accept her new insurance. [facility] Other 09-02-2022 Evaluation note* Encounter Date Diagnosis Assessment Notes Treatment Notes Treatment Clinical Notes Jul, History of colon cancer (ICD-10 - Z85.038) [facility] Other 01-12-2022 Evaluation note* Encounter Date Diagnosis [...] potassium wasting. I have prescribed oral potassium. [facility] Other 10-25-2021 Evaluation note* Encounter Date Diagnosis [...] Patient care instructions given in writting by [facility] Care At Home document [facility] [employer] Other Evaluation noteNo InformationNortEncompass Health [facility] [employer] Other Evaluation note* Diagnosis Onset Date Resolution Status History of colon cancer [facility] Work Phone: History general Narrative - [...] IN 08/2019 Hospitalization History HIP REVISION 03/2020 [facility] Other History general Narrative - Reported* Type [...] Hospitalization History COVID X 2 WEEKS 04/2023 [facility] Other Hospital Discharge instructions Additional Instructions DISCHARGE [...] if you have any problems. -Office number [phone] Work Phone: Advance Directives No Advanced [...] or prosecute any alcohol or drug abuse patient.[facility] Hospital[facility] the event this information is protected by the Federal Confidentiality of Alcohol and Drug Abuse Patient Records regulations: The Federal rules restrict any use of the information to criminally investigate or prosecute any alcohol or drug abuse patient.[facility] Hospital[facility] the event this information is protected by the Federal Confidentiality of Alcohol and Drug Abuse Patient Records regulations: The Federal rules restrict any use of the information to criminally investigate or prosecute any alcohol or drug abuse patient.[facility] Hospital[facility] the event this information is protected by the Federal Confidentiality of Alcohol and Drug Abuse Patient Records regulations: The Federal rules restrict any use of the information to criminally investigate or prosecute any alcohol or drug abuse patient.[facility] INFORMATION SOURCE (unrecogn ized section and content) DATE CREATED AUTHOR 03/03/2022 [facility] DATE CREATED AUTHOR AUTHOR'S ORGANIZ ATION 04/17/2023 [facility] DATE CREATED AUTHOR AUTHOR'S ORGANIZ ATION 05/08/2023 [facility] DATE CREATED AUTHOR AUTHOR'S ORGANIZ ATION 06/07/2023 [facility] DATE CREATED AUTHOR AUTHOR'S ORGANIZ ATION 10/20/2023 [facility] DATE CREATED AUTHOR AUTHOR'S ORGANIZ ATION 11/04/2023 [facility] EPIC REASON FOR VISIT (unrecogniz ed section and [...] BE BASED ON THE PRIMARY CLINICAL RECORDS. [employer] provides no warranty or guarantee of the accuracy or completeness of information in this document.
--- NOTE | 2023-11-23 09:21 | PM.CN ---
Consult Note: HPI Data of Consult Patient: known to practice within the last 3 years Requesting Physician: Violet Saucedo NP Primary Care Provider: Shaikh Lev MD Consult Narrative Reason for consult: f/u Narrative: Diana Champion a pleasant 68 year old female presents for evaluation and management of low back pain. Today rating pain 10/10 in low back and bilateral hips. Recently underwent bilateral L3-4 L4-5 MBB #2 with 80-90% improvement and pain relief immediately following and hours after. Patient would like to proceed with thermal RFA at bilateral L3-4 L4-5 facet medial branch. cc:: CC: Violet Saucedo NP Review of Systems ROS Status of ROS 10 or more systems reviewed and unremarkable except as noted in history and below Musculoskeletal Reports: back pain and joint pain PFSH PFSH Medical History Acute infective exacerbation of chronic obstructive airway disease ?J44.1 - Chronic obstructive pulmonary disease with (acute) exacerbation (ICD-10) Asthma ?J45.909 - Unspecified asthma, uncomplicated (ICD-10) Chronic low back pain ?M54.50 - Low back pain, unspecified (ICD-10) ?G89.29 - Other chronic pain (ICD-10) Chronic obstructive pulmonary disease ?J44.9 - Chronic obstructive pulmonary disease, unspecified (ICD-10) Depression ?F32.A - Depression, unspecified (ICD-10) Heart murmur ?R01.1 - Cardiac murmur, unspecified (ICD-10) Hypertension ?I10 - Essential (primary) hypertension (ICD-10) Hypoxia ?R09.02 - Hypoxemia (ICD-10) Social History Smoking status: Never smoker Do you think of yourself as: straight/heterosexual Gender Identity: female Meds Home Medications and Allergies Home Medications Medication Instructions Recorded Confirmed Type albuterol sulfate 90 mcg/actuation 2 puff inhalation Q4H PRN 04/10/23 11/13/23 History aerosol inhaler shortness of breath or wheezing fluticasone fur. 200 mcg-umeclid 1 inh inhalation Q24H COPD 04/10/23 11/13/23 History 62.5 mcg-vilant 25 mcg inhalat.powder (Trelegy Ellipta) magnesium oxide 400 mg (241.3 mg 400 mg PO DAILY 04/10/23 11/13/23 History magnesium) tablet omeprazole 20 mg capsule,delayed 20 mg PO DAILY 04/10/23 11/13/23 History release paroxetine HCl 20 mg tablet 30 mg PO DAILY 04/10/23 11/13/23 History solifenacin 5 mg tablet 5 mg PO DAILY 04/10/23 11/13/23 History trazodone 50 mg tablet 100 mg PO BEDTIME 04/10/23 11/13/23 History ipratropium 0.5 mg-albuterol 3 mg 3 ml inhalation Q6H PRN shortness 04/22/23 11/13/23 Rx (2.5 mg base)/3 mL nebulization of breath or wheezing #90 mL soln losartan 50 mg tablet (Cozaar) 50 mg PO DAILY 08/21/23 11/13/23 History polysaccharide iron complex 180 mg 180 mg PO DAILY 08/21/23 11/13/23 History iron capsule (Pro Fe) acetaminophen 300 mg-codeine 30 mg 1 tab PO TID PRN pain #90 tabs 08/28/23 11/13/23 Rx tablet alendronate 35 mg tablet 35 mg PO DAILY 09/14/23 11/13/23 History montelukast 10 mg tablet 10 mg PO DAILY 09/14/23 11/13/23 History pramipexole 0.25 mg tablet 0.25 mg PO QPM 09/14/23 11/13/23 History (Mirapex) Allergies Allergy/AdvReac Type Severity Reaction Status Date / Time No Known Drug Allergies Allergy Verified 11/13/23 08:52 Exam Constitutional Documenting provider has reviewed patient's vital signs: yes Common normals: no apparent distress, oriented x3, healthy appearing, alert and well nourished General appearance: cooperative [facility] Common normals: normocephalic, hearing grossly normal bilaterally and moist oral mucous membranes Head and scalp: normocephalic Eye Common normals: PERRL Pupil: PERRL Neck & C-Spine Common normals: full ROM General: normal visual inspection Chest Common normals: inspection of chest normal Respiratory Common normals: normal respiratory effort, no retractions and no use of accessory muscles Back & Pelvis Lumbar spine/lower back: ROM limited, pain with ROM and straight leg raise negative bilaterally Other: pain over bilateral GTB Extremity Right lower extremity: hip joint Other: pain with internal and external rotation. Weakness to BLE 4/5 strength Neuro Common normals: oriented x3, CN's II-XII intact bilaterally, moves all extremities, no focal motor deficits, no sensory deficits noted and deep tendon reflexes 2+ bilaterally Sensorium/orientation: alert Motor exam: strength 5/5 throughout and no movement abnormalities noted Psych Common normals: mental status grossly normal, thought process normal, cooperative, affect normal, speech normal and activity/motor behavior normal Speech: normal speech Thought process: normal thought process Results Additional Findings Additional findings: I have checked an [place] report on this patient today and there are no aberrancies noted in the prescribing history.?? A drug screen was completed and reviewed within the last year, and if there has not been a drug screen completed we ordered one today to monitor higher risk, state monitored pain medication use. As part of providing excellent, safe, comprehensive care, the following was completed at our patient's visit: 1. A medication reconciliation and review to ensure accurate knowledge of current/active medications, including asking our patients to inform us about any [id number] medications or herbal remedies/nutritional supplements/alternative remedies. 2. A review to specifically ensure our patients have had annual screening for: elevated body mass index (BMI), tobacco use, screening for depression, and screening for unhealthy alcohol use. When screening is concerning, patients are provided with education and the specific recommendation to discuss the concerning health issue and treatment options with their primary care provider. Assessment and Plan Assessment and Plan (1) Lumbar spondylosis: Assessment and Plan: The patient has had over 3 months of moderate to severe low back pain with functional impairment and inadequate response to conservative care including NSAIDS (unless there are contraindication such as concurrent blood thinners), multiple oral or topical pain medications, and home exercise program/physical therapy.? Patient has completed >6 weeks of guided home exercise program and/or formal physical therapy program without relief of their symptoms.? I have reviewed the imaging of the lumbar spine and no red flags were identified.? We discussed the risks and benefits of the procedure with the patient, and we are NOT planning on using sedation as outlined in the guidelines from Medicare unless there is a documented reason that sedation would be strongly recommended.??The procedure will be completed with fluoroscopic guidance.? (2) Greater trochanteric bursitis: (3) History of lumbar fusion: (4) Chronic, continuous use of opioids: (5) Lumbar postlaminectomy syndrome: (6) Myofascial pain: (7) Osteoarthritis of right hip: Qualifiers: Osteoarthritis type: primary Qualified Code(s): M16.11 - Unilateral primary osteoarthritis, right hip Plan bilateral L3-4 L4-5 facet medial branch thermal RFA under fluoroscopy with Dr Vargas start cyclobenzaprine 5mg BID PRN for myofascial pain start OTC diclofenac gel to bialteral GT BID as discussed, call if pain persists for bilateral GTB injections continue current medications, tolerating well without side effects. Has noticed she has needed tylenol #3 more frequently these past three days due to increase in pain can consider right hip injection if needed although pain appears to be GTB on exam today f/u 1 month after thermal RFA
== END 2023-11-23 08:47 | disposition home or self-care (01) ==
LOC: PM 08:47
PROVIDERS: PCP Internal Medicine; Visit Provider Nurse Practitioner
DX: M47.816 Spondylosis without myelopathy or radiculopathy, lumbar region (principal); M70.60 Trochanteric bursitis, unspecified hip; Z98.1 Arthrodesis status; M96.1 Postlaminectomy syndrome, not elsewhere classified; M16.11 Unilateral primary osteoarthritis, right hip; M79.18 Myalgia, other site
CPT/HCPCS: G0463

== ENCOUNTER 2023-11-25 13:58 | Inpatient (IN) | payer OTHER, SELFPAY ==
[2023-11-25] VITALS (40 sets, daily range): BP systolic 50–141; BP diastolic 31–79; PULSE 59–93; RESP 14–27; TEMP 36.3–37.2; O2SAT 87–95; BMI 39.5; BMI 40.0
--- OUTSIDE RECORDS SUMMARY | 2023-11-25 14:04 | XMS_ITS | CCD ---
Author Name Unknown Address [address] [place] [address] Organization [facility] Care Team Providers Care Associate Trainer Name Role Phone Steph Collier Attending Provider Unavailable Chantel Rainey Primary Care Provider Unavailabl e JoanaHerberth Attending Provider Unavailable Unavailable Primary Care Provider Unavailabl e UNKNOWN, PHYSICIAN Referring Unavailable JOO LINN Attending Unavailable JOO LINN Admitting Unavailable UNKNOWN, PHYSICIAN Primary Care Unavailable Rena Hurd Unavailable JoanaHerberth epps Unavailable Gato Domingo Unavailable Steph Collier Attending Provider MD Gato Domingo Attending Provider [phone] MD Nicky Ohara Primary Care Provider [phone] Gilma Trent Unavailable JOANA, HERBERTH Attending Unavailable JOANA, HERBERTH Admitting Unavailable FAWWAD, SAUNDERS H Primary Care Unavailable HERBERTH BERNARD Consulting Unavailable SAM ., BO Admitting Unavailable FAWWAD, SAUNDERS H Primary Care Unavailable FAWWAD, SAUNDERS H Consulting Unavailable JOHNY ., BO Attending Unavailable BRITTANY GALDAMEZ Consulting Unavailable ISABEL ., DR SANTIAGO Admitting Unavailabl e KARBLANCA ., DR SANTIGAO Attending Unavailabl e KARASINorman ., DR SANTIAGO Consulting Unavailabl e FABIRD, SAUNDERS H Primary Care Unavailable SAVANNAH, DR BRITTANY Elizondo Consulting Unavailable DARWIN, DR STEPH Holland Consulting Unavailable KARBLANCA ., DR SANTIAGO Admitting Unavailabl e KARBLANCA ., DR SANTIAGO Attending Unavailabl e KARASIK ., DR SANTIAGO Consulting Unavailabl e FAWWAD, SAUNDERS H Primary Care Unavailable JOANA, HERBERTH Admitting Unavailable JOANA, HERBERTH Attending Unavailable FAWWAD, SAUNDERS H Primary Care Unavailable JOANA, HERBERTH Consulting Unavailable JAONA, HERBERTH Admitting Unavailable JOANA, HERBERTH Attending Unavailable [...] FAWWAD, SAUNDERS H Primary Care Unavailable FAWWAD, SAUNDESR H Primary Care Unavailable FAWWAD, SAUNDERS H [...] fentaNYL; Translations: [fentanyl] Drug Allergy 07-07-20 17 [facility] (2 sources) linezolid; Translations: [LINEZOLID] Drug Allergy 03-17-20 20 [facility] (20 sources) Vancomycin; Translations: [VANCOMYCIN] Drug Allergy 03-17-20 Unknown [facility] (11 sources) DENIES METAL SENSITITIVITY Propensity to adverse reactions Unknown [employer] Other Medications Current Medications Medication Drug Class(es) [...] each nostril Nasally Once a day Active Vhwzmxafhwn-Yzjzdyyeh-Bm lanter (1 source) Star t: 02-0 2-20 23 Pvjdwcupovn-Dmgngedmn-X ilanter (Trelegy Ellipta) 200-62.5-25 mcg blister with [...] 1 puff(s) by inhalation twice daily Ipratropium [place] Active 2 PUFF Inhalation Twice daily July [...] 2017 10:21am take 1 capsule by mo [facility] every twelve hours Omeprazole 20 MG 1 [...] Active Start: 08-05-2022 take [facility] Potassium Chloride ER 20 [...] Interpretation Reference Range Facility Follow-Upon 05-08-2023 Follow-Up [id number] Nell Champion 1955 F Date Provider Department Center 05/08/2023 271CATHY HETAL [facility] Family History Problem Relation Age of Onset Heart failure Mother Heart disease Father Family Status - Relation Status Age at Mother Father Level of Service:53622 MT OFFICE/OUTPATIENT ESTABLISHED LOW MDM 20-29 MIN [facility] 05-03-2023 36 PATIENT CALLED TO CANCEL SURGERY FOR July D/T HER LUNG DISEASE. WILL CALL TO RESCHEDULE WHEN FULLY HEALED FROM LUNGS AND CLEARED//[facility] 04-19-2023 36 FYI CALLED PATIENT T O F/U ON MEDICAL AND PULMONARY CLEARANCES FOR R ELZA ON 05/19 AND PRE-OP RIYA'T 04/27 WITH US AND PATIENT IS CURRENTLY INPATIENT SINCE LAST WEEK D/T COVID AND PULMONARY ISSUES, SHE WILL CALL US ON 04/25 WITH PROGRESS, PLEASE ADVISE IF WE SHOULD CANCEL SURGERY FOR NOW..THANKS//[facility] SYMPTOMATIC COVID-19 ANTIGEN on 04-04-2023 EUA Statement SEE BELOW Normal [facility] Comment on above: Result Comment: This [...] sooner. Performed By: #### C VDAGS #### [facility] [address] [place] [address] Dr. Shayne Roldan SARS-CoV-2 (COVID-19) RNA KAYLEE+probe Ql (Unsp spec) Positive Abnormal NEGATIVE [facility] Comment on above: Performed By: #### C VDAGS #### [facility] [address] [place], [place] [id number] Dr. Shayne Roldan XR LSPINE 2_3 VIEWSon [...] STEPH GRANADOS Date: 2023-03-24 12:52 Normal [facility] PTH INTACTon 02-27-2023 PTH, Intact 87 pg/mL Critically high 15-65 [facility] Comment on above: Performed By: #### P THINT #### [facility] [address] [place] [address] Dr. Shayne Roldan HEMOGRAM AND PLATELon 2022 Hematocrit (Bld) [Volume fraction] 44.4 % Normal 36.0-48.0 [facility] Comment on above: Performed By: #### H H #### [facility] [address] [place] [address] Dr. Shayne Roldan Hemoglobin (Bld) [Mass/Vol] 14.5 g/dL Normal 12.0-16.0 [facility] Comment on above: Performed By: #### H H #### [facility] [address] [place] [address] Dr. Shayne Roldan MCH (RBC) [Entitic mass] 30.3 pg Normal 26.7-34.0 [facility] Comment on above: Performed By: #### H H #### [facility] [address] [place] [address] Dr. Shayne Roldan MCHC (RBC) [Mass/Vol] 32.7 g/dL Normal 29.9-35.2 [facility] Comment on above: Performed By: #### H H #### [facility] [address] [address] [address] Shayne Roldan MCV (RBC) [Entitic vol] 92.9 fL Normal 81.0-99.0 [facility] Comment on above: Performed By: #### H H #### [facility] [address] [address] [address] Shayne Roldan PLT 367 103/ul Normal 150-450 [facility] Comment on above: Performed By: #### H H #### [facility] [address] [address] [address] Shayne Roldan RBC 4.78 106/ul Normal 4.20-5.40 [facility] Comment on above: Performed By: #### H H #### [facility] [address] [place] [address] Dr. Shayne Roldan WBC 9.9 103/ul Normal 4.0-11.0 [facility] Comment on above: Performed By: #### H H #### [facility] [address] [place] [address] Dr. Shayne Roldan MAGNESIUMon 02-25-2023 Magnesium [Mass/Vol] 1.6 mg/dL Critically low 1.8-2.4 [facility] Comment on above: Performed By: #### M G, RENAL, URIC #### [facility] [address] [place] [address] Dr. Shayne Roldan RENAL FUNCTION PANELon 02-25 Albumin [Mass/Vol] 3.4 g/dL Normal 3.4-5.0 The [facility] Comment on above: Performed By: #### M G, RENAL, URIC #### [facility] [address] [place] [address] Dr. Shayne Roldan Calcium [Mass/Vol] 8.7 mg/dL Normal 8.5-10.1 [facility] Comment on above: Performed By: #### M G, RENAL, URIC #### [facility] [address] [place] [address] Dr. Shayne Roldan Chloride [Moles/Vol] 104 mmol/L Normal 98-107 [facility] Comment on above: Performed By: #### M G, RENAL, URIC #### [facility] [address] [address] [address] Shayne Roldan CO2 [Moles/Vol] 25.9 mmol/L Normal 21.0-32.0 [facility] Comment on above: Performed By: #### M G, RENAL, URIC #### [facility] [address] [address] [address] Shayne Roldan Creatinine [Mass/Vol] 1.19 mg/dL Critically high 0.55-1.02 [facility] Comment on above: Performed By: #### M G, RENAL, URIC #### [facility] [address] [place] [address] Dr. Shayne Roldan EGFR-AF SINGAPOREAN 55 mL/min/1.73m2 Critically low >=60 [facility] Comment on above: Performed By: #### M G, RENAL, URIC #### [facility] [address] [place] [address] Dr. Shayne Roldan EGFR-NON AF [place]AN 45 mL/min/1.73m2 Critically low >=60 [facility] Comment on above: Performed By: #### M G, RENAL, URIC #### [facility] [address] [place] [address] Dr. Shayne Roldan Glucose [Mass/Vol] 193 mg/dL Critically high 74-[address] [facility] Comment on above: Performed By: #### M G, RENAL, URIC #### [facility] [address] [place] [address] Dr. Shayne Roldan Phosphate [Mass/Vol] 3.2 mg/dL Normal 2.6-4.7 [facility] Comment on above: Performed By: #### M G, RENAL, URIC #### [facility] [address] [place] [address] Dr. Shayne Roldan Potassium [Moles/Vol] 3.9 mmol/L Normal 3.5-5.1 [facility] Comment on above: Performed By: #### M G, RENAL, URIC #### [facility] [address] [place] [address] Dr. Shayne Roldan Sodium [Moles/Vol] 140 mmol/L Normal 136-145 [facility] Comment on above: Performed By: #### M G, RENAL, URIC #### [facility] [address] [address] [address] Shayne Roldan Urea nitrogen [Mass/Vol] 17.0 mg/dL Normal 7.0-18.0 [facility] Comment on above: Performed By: #### M G, RENAL, URIC #### [facility] [address] [address] [address] Shayne Roldan UA RANDOM W/MICROSCOPICon BACTERIA TRACE Abnormal NONE SEEN [facility] Comment on above: Performed By: #### M G, RENAL, URIC #### [facility] [address] [place] [address] Dr. Shayne Roldan Bilirubin Ql (U) Negative Normal NEGATIVE [facility] Comment on above: Performed By: #### M G, RENAL, URIC #### [facility] [address] [address] [address] Shayne Roldan CAST NONE SEEN Normal NONE SEEN [facility] Comment on above: Performed By: #### M G, RENAL, URIC #### [facility] [address] [address] [address] Shayne Roldan Clarity (U) CLEAR Normal CLEAR [facility] Comment on above: Performed By: #### M G, RENAL, URIC #### [facility] [address] [address] [address] Shayne Roldan Color (U) LT. YELLOW Normal YELLOW [facility] Comment on above: Performed By: #### M G, RENAL, URIC #### [facility] [address] [address] [address] Shayne Roldan Crystals LM Nom (Urine sed) NONE SEEN Normal NONE SEEN [facility] Comment on above: Performed By: #### M G, RENAL, URIC #### [facility] [address] [address] [address] Shayne Roldan Epithelial cells LM Ql (Urine sed) RARE Normal NONE SEEN /RARE [facility] Comment on above: Performed By: #### M G, RENAL, URIC #### [facility] [address] [address] [address] Shayne Roldan Glucose Ql (U) Negative Normal NEGATIVE The [facility] Comment on above: Performed By: #### M G, RENAL, URIC #### [facility] [address] [address] [address] Shayne Roldan Hemoglobin Ql (U) Negative Normal NEGATIVE [facility] Comment on above: Performed By: #### M G, RENAL, URIC #### [facility] [address] [address] [address] Shayne Roldan Ketones Ql (U) Negative Normal NEGATIVE [facility] Comment on above: Performed By: #### M G, RENAL, URIC #### [facility] [address] [address] [address] Shayne Roldan LEUKOCYTES Negative Normal NEGATIVE [facility] Comment on above: Performed By: #### M G, RENAL, URIC #### [facility] [address] [address] [address] Shayne Roldan MUCOUS NONE SEEN Normal NONE SEEN [facility] Comment on above: Performed By: #### M G, RENAL, URIC #### [facility] [address] [address] [address] Shayne Roldan Nitrite Ql (U) Negative Normal NEGATIVE [facility] Comment on above: Performed By: #### M G, RENAL, URIC #### [facility] [address] [address] [address] Shayne Roldan pH (U) 5.0 [pH] Normal 5-9 [facility] Comment on above: Performed By: #### M G, RENAL, URIC #### [facility] [address] [address] [address] Shayne Roldan RBC 0-2 Normal 0-2 [facility] Comment on above: Performed By: #### M G, RENAL, URIC #### [facility] [address] [address] [address] Shayne Roldan SPEC GRAVITY 1.025 Normal 1.005-<=1.025 [facility] Comment on above: Performed By: #### M G, RENAL, URIC #### [facility] [address] [address] [address] Shayne Roldan UA PROTEIN Negative Normal NEGATIVE/ TRACE [facility] Comment on above: Performed By: #### M G, RENAL, URIC #### [facility] [address] [address] [address] Shayne Roldan Urobilinogen Qn (U) 0.2 {Rogelio'U}/dL Normal 0.2 - 1. 0 [facility] Comment on above: Performed By: #### M G, RENAL, URIC #### [facility] [address] [place] [address] Dr. Shayne Roldan WBC 0-2 Abnormal NONE SEEN [facility] Comment on above: Performed By: #### M G, RENAL, URIC #### [facility] [address] [place] [address] Dr. Shayne Roldan URIC ACID SERUMon 02-25-2023 Urate [Mass/Vol] 6.1 mg/dL Critically high 2.6-6.0 [facility] Comment on above: Performed By: #### M G, RENAL, URIC #### [facility] [address] [address] [address] Shayne Roldan URINE T PROTEIN CREAT RATIOo n 02-25-2023 Protein (U) [Mass/Vol] 13.0 mg/dL Critically high <=12.0 [facility] Comment on above: Performed By: #### M G, RENAL, URIC #### [facility] [address] [place] [address] Dr. Shayne Roldan UR PROT CREAT RAT 0.16 Normal [facility] Comment on above: Performed By: #### M G, RENAL, URIC #### [facility] [address] [place] [address] Dr. Shayne Roldan URINE CREAT 83.60 mg/dL Normal 20.00-300.00 [facility] Comment on above: Performed By: #### M G, RENAL, URIC #### [facility] [address] [place], [place] [address] Dr. Shayne Roldan VITAMIN D 25 OHon 02-25-2023 VIT D 25-OH 41.6 ng/mL Normal [facility] Comment on above: Performed By: #### M G, RENAL, URIC #### [facility] [address] [place], [place] [address] Dr. Shayne Roldan VIT D RANGES SEE BELOW Normal [facility] Comment on above: Result Comment: <20 ng/mL Vit D deficient 20 - <30 ng/mL Vit D insufficient 30 - 100 ng/mL Vit D sufficient >100 ng/mL Potential Toxicity Performed By: #### M G, RENAL, URIC #### [facility] [address] [place], [place] [address] Dr. Shayne Roldan XR CHEST 2 Von [...] BRITTANY GALDAMEZ Date: 2023-02-22 16:15 Normal [facility] MAMM SCREEN 3D PRATEEK CADon 12-15-2022 MAMM SCREEN 3D PRATEEK CAD Patient: DIANA CHAMPION Exam Date: 12/15/2022 : 1955 Gender:F Ordering : DR JACK HALL . Admission #: [id number] Family : Order #: [id number] CLICK HERE TO VIEW EXAM RADIOLOGY REPORT PROCEDURE: MAMMOGRAM SCREENING 3D BILATERAL CAD COMPARISON: MG MAMM SCREEN 3D PRATEEK CAD, 11/26/2021. INDICATIONS: Calculator Name NCI Breast Cancer Risk Assessment Tool 5 Year Breast Cancer Risk 1.20% Lifetime Breast Cancer Risk 4.40% Personal Breast Cancer No Personal Ovarian Cancer No Treatments Excision, radiation, chemotherapy Family Cancers None LOCATION: [facility] BREAST COMPOSITION: Almost entirely fatty. FINDINGS: DIAGNOSTIC [...] Walters MD on 12/15/2022 at 10:51 Normal [facility] XR DEXA BONE DENSITYon 12-15 XR DEXA [...] by: STEPH GRANADOS Date: 2022-12-15 09:50 Normal [facility] Fran 12-08-2022 L - -------- Specimen: [id number] Received: 12/08/22 Status: CELIA Eliza Num: [id number] Spec Type: Surgical Subm Dr: Gato Domingo MD Tissues: A Colon Biopsy (DESC COL POLYP) Procedures: HE/2, Gross/Micro L4 -------- Age/ Patient Sex Location Account Attending Physician -------- Diana Champion 67/F [id number] Gato Domingo MD -------- SPEC NUM: [id number] RECD: 12/08/22 STATUS: CELIA MARTIN NUM: [id number] KENDRA: 12/08/[address] [facility] [address]: Gato Domingo MD ENTERED: 12/08/22-[address] [facility] [address]: KHRIS TYPE: Surgical DEPT: S ENTERED BY: [id number] RECV BY: [id number] ORDERED: HE/2, Gross/Micro L4 ORDERED: HE/2, Gross/Micro [...] support the above pathologic diagnosis. CPT Codes 35758 -------- -------- Specimen: [id number] Received: 12/08/22 Status: CELIA Eliza Num: [id number] Spec Type: Surgical Subm Dr: Gato Domingo MD Tissues: A Colon Biopsy (DESC COL POLYP) Procedures: FLORENCIA/Shagufta Douglass/Micro L4 -------- Patient: Diana Champion [id number] (Continued) -------- Signed (signature on file) Eunice Rosa MD 12/09/22 1053 [facility] PAP ACOG PANEL 2: 30 to 65on 11-16-2022 . . Normal [facility] Comment on above: Performed By: #### [id number] #### [facility] [address] [address] [address] Shayne Roldan Age Gdln ACOG Testing Comment [facility] Comment on above: Result Comment: <21 or >65 or no age provided Performed By: #### 4 [id number] #### [facility] [address] [address] [address] Shayne Roldan DIAGNOSIS: Comment [facility] Comment on above: Result Comment: NEGA TIVE FOR INTRAEPITHELIAL LESION OR MALIGNANCY. Performed By: #### [id number] #### [facility] [address] [place] [address] Dr. Shayne Roldan Methodology: Comment [facility] Comment on above: Result Comment: This liquid based ThinPrep(R) pap test was screened with the use of an image guided system. Performed By: #### 4 [id number] #### [facility] [address] [place] [address] Dr. Shayne Roldan Note: Comment [facility] Comment on above: Result Comment: The Pap smear is a screening test designed to aid in the detection of premalignant and malignant conditions of the uterine cervix. It is not a diagnostic procedure and should not be used as the sole means of detecting cervical cancer. Both false-positive and false-negative reports do occur. . Performed By: #### 4 [id number] #### [facility] [address] [place] [address] Dr. Shayne Roldan Performed by: Comment Normal [facility] Comment on above: Result Comment: Onur Aguilar Can Line Operator (ASCP) Performed By: #### 4 [id number] #### [facility] [address] [place] [address] Dr. Shayne Roldan Specimen adequacy: Comment [facility] Comment on above: Result Comment: Sati sfactory for evaluation. Endocervical and/or squamous metaplastic cells (endocervical component) are present. Performed By: #### 4 [id number] #### [facility] [address] [place] [address] Dr. Shayne Roldan RENAL FUNCTION PANELon 08-19 Albumin [Mass/Vol] 3.4 g/dL Normal 3.4-5.0 [facility] Comment on above: Performed By: #### M G, RENAL, URIC #### [facility] [address] [address] [address] Shayne Roldan Calcium [Mass/Vol] 8.4 mg/dL Critically low 8.5-10.1 Th [facility] Comment on above: Performed By: #### M G, RENAL, URIC #### [facility] [address] [address] [address] Shayne Roldan Chloride [Moles/Vol] 103 mmol/L Normal 98-107 [facility] Comment on above: Performed By: #### M G, RENAL, URIC #### [facility] [address] [place] [address] Dr. Shayne Roldan CO2 [Moles/Vol] 27.8 mmol/L Normal 21.0-32.0 [facility] Comment on above: Performed By: #### M G, RENAL, URIC #### [facility] [address] [address] [address] Shayne Roldan Creatinine [Mass/Vol] 1.02 mg/dL Normal 0.55-1.02 [facility] Comment on above: Performed By: #### M G, RENAL, URIC #### [facility] [address] [address] [address] Shayne Roldan EGFR-AF SINGAPOREAN >60 Normal >=60 [facility] Comment on above: Performed By: #### M G, RENAL, URIC #### [facility] [address] [address] [address] Shayne Roldan EGFR-NON AF [place]AN 54 mL/min/1.73m2 Critically low >=60 [facility] Comment on above: Performed By: #### M G, RENAL, URIC #### [facility] [address] [address] [address] Shayne Roldan Glucose [Mass/Vol] 110 mg/dL Critically high 74-[address] [facility] Comment on above: Performed By: #### M G, RENAL, URIC #### [facility] [address] [place] [address] Dr. Shayne Roldan Phosphate [Mass/Vol] 2.3 mg/dL Critically low 2.6-4.7 [facility] Comment on above: Performed By: #### M G, RENAL, URIC #### [facility] [address] [place] [address] Dr. Shayne Roldan Potassium [Moles/Vol] 3.2 mmol/L Critically low 3.5-5.1 [facility] Comment on above: Performed By: #### M G, RENAL, URIC #### [facility] [address] [place] [address] Dr. Shayne Roldan Sodium [Moles/Vol] 138 mmol/L Normal 136-145 [facility] Comment on above: Performed By: #### M G, RENAL, URIC #### [facility] [address] [place] [address] Dr. Shayne Roldan Urea nitrogen [Mass/Vol] 14.0 mg/dL Normal 7.0-18.0 [facility] Comment on above: Performed By: #### M G, RENAL, URIC #### [facility] [address] [place] [address] Dr. Shayne Roldan PTH INTACTon 08-06-2022 PTH, Intact 40 pg/mL Normal 15-65 [facility] Comment on above: Performed By: #### M G, RENAL, URIC #### [facility] [address] [place] [address] Dr. Shayne Roldan HEMOGRAM AND PLATELon 2021 Hematocrit (Bld) [Volume fraction] 39.8 % Normal 36.0-48.0 [facility] Comment on above: Performed By: #### M G, RENAL, URIC #### [facility] [address] [place] [address] Dr. Shayne Roldan Hemoglobin (Bld) [Mass/Vol] 13.4 g/dL Normal 12.0-16.0 [facility] Comment on above: Performed By: #### M G, RENAL, URIC #### [facility] [address] [address] [address] Shayne Roldan MCH (RBC) [Entitic mass] 30.5 pg Normal 26.7-34.0 [facility] Comment on above: Performed By: #### M G, RENAL, URIC #### [facility] [address] [place] [address] Dr. Shayne Roldan MCHC (RBC) [Mass/Vol] 33.7 g/dL Normal 29.9-35.2 [facility] Comment on above: Performed By: #### M G, RENAL, URIC #### [facility] [address] [place] [address] Dr. Shayne Roldan MCV (RBC) [Entitic vol] 90.5 fL Normal 81.0-99.0 [facility] Comment on above: Performed By: #### M G, RENAL, URIC #### [facility] [address] [place] [address] Dr. Shayne Roldan PLT 299 103/ul Normal 150-450 [facility] Comment on above: Performed By: #### M G, RENAL, URIC #### [facility] [address] [place] [address] Dr. Shayne Roldan RBC 4.40 106/ul Normal 4.20-5.40 [facility] Comment on above: Performed By: #### M G, RENAL, URIC #### [facility] [address] [place] [address] Dr. Shayne Roldan WBC 8.8 103/ul Normal 4.0-11.0 [facility] Comment on above: Performed By: #### M G, RENAL, URIC #### [facility] [address] [place] [address] Dr. Shayne Roldan MAGNESIUMon 08-05-2022 Magnesium [Mass/Vol] 1.5 mg/dL Critically low 1.8-2.4 [facility] Comment on above: Performed By: #### M G, RENAL, URIC #### [facility] [address] [place] [address] Dr. Shayne Roldan RENAL FUNCTION PANELon 08-05 Albumin [Mass/Vol] 3.5 g/dL Normal 3.4-5.0 The [facility] Comment on above: Performed By: #### M G, RENAL, URIC #### [facility] [address] [address] [address] Shayne Roldan Calcium [Mass/Vol] 8.4 mg/dL Critically low 8.5-10.1 Th e [facility] Comment on above: Performed By: #### M G, RENAL, URIC #### [facility] [address] [address] [address] Shayne Roldan Chloride [Moles/Vol] 101 mmol/L Normal 98-107 [facility] Comment on above: Performed By: #### M G, RENAL, URIC #### [facility] [address] [place] [address] Dr. Shayne Roldan CO2 [Moles/Vol] 29.5 mmol/L Normal 21.0-32.0 [facility] Comment on above: Performed By: #### M G, RENAL, URIC #### [facility] [address] [place] [address] Dr. Shayne Roldan Creatinine [Mass/Vol] 1.04 mg/dL Critically high 0.55-1.02 [facility] Comment on above: Performed By: #### M G, RENAL, URIC #### [facility] [address] [place] [address] Dr. Shayne Roldan EGFR-AF SINGAPOREAN >60 Normal >=60 The [facility] Comment on above: Performed By: #### M G, RENAL, URIC #### [facility] [address] [place] [address] Dr. Shayne Roldan EGFR-NON AF SINGAPOREAN 53 mL/min/1.73m2 Critically low >=60 [facility] Comment on above: Performed By: #### M G, RENAL, URIC #### [facility] [address] [place] [address] Dr. Shayne Roldan Glucose [Mass/Vol] 92 mg/dL Normal 74-106 The [facility] Comment on above: Performed By: #### M G, RENAL, URIC #### [facility] [address] [place], [place] [id number] Dr. Shayne Roldan Phosphate [Mass/Vol] 2.4 mg/dL Critically low 2.6-4.7 [facility] Comment on above: Performed By: #### M G, RENAL, URIC #### [facility] [address] [place] [address] Dr. Shayne Roldan Potassium [Moles/Vol] 2.8 mmol/L Critically low 3.5-5.1 [facility] Comment on above: Performed By: #### M G, RENAL, URIC #### [facility] [address] [place] [address] Dr. Shayne Roldan Sodium [Moles/Vol] 137 mmol/L Normal 136-145 The [facility] Comment on above: Performed By: #### M G, RENAL, URIC #### [facility] [address] [place] [address] Dr. Shayne Roldan Urea nitrogen [Mass/Vol] 10.0 mg/dL Normal 7.0-18.0 [facility] Comment on above: Performed By: #### M G, RENAL, URIC #### [facility] [address] [place] [address] Dr. Shayne Roldan UA RANDOM W/MICROSCOPICon BACTERIA SMALL Abnormal NONE SEEN [facility] Comment on above: Performed By: #### U AMIC #### [facility] [address] [place] [address] Dr. Shayne Roldan Bilirubin Ql (U) Negative Normal NEGATIVE The [facility] Comment on above: Performed By: #### U AMIC #### [facility] [address] [place] [address] Dr. Shayne Roldan CAST NONE SEEN Normal NONE SEEN [facility] Comment on above: Performed By: #### U AMIC #### [facility] [address] [place] [address] Dr. Shayne Roldan Clarity (U) CLEAR Normal CLEAR [facility] Comment on above: Performed By: #### U AMIC #### [facility] [address] [place] [address] Dr. Shayne Roldan Color (U) LT. YELLOW Normal YELLOW [facility] Comment on above: Performed By: #### U AMIC #### [facility] [address] [address] [address] Shayne Roldan Crystals LM Nom (Urine sed) NONE SEEN Normal NONE SEEN [facility] Comment on above: Performed By: #### U AMIC #### [facility] [address] [address] [address] Shayne Roldan Epithelial cells LM Ql (Urine sed) FEW Abnormal NONE SEEN /RARE [facility] Comment on above: Performed By: #### U AMIC #### [facility] [address] [address] [address] Shayne Roldan Glucose Ql (U) Negative Normal NEGATIVE The [facility] Comment on above: Performed By: #### U AMIC #### [facility] [address] [address] [address] Shayne Roldan Hemoglobin Ql (U) Negative Normal NEGATIVE The [facility] Comment on above: Performed By: #### U AMIC #### [facility] [address] [address] [address] Shayne Roldan Ketones Ql (U) Negative Normal NEGATIVE The [facility] Comment on above: Performed By: #### U AMIC #### [facility] [address] [address] [address] Shayne Roldan LEUKOCYTES TRACE Abnormal NEGATIVE [facility] Comment on above: Performed By: #### U AMIC #### [facility] [address] [address] [address] Shayne Roldan MUCOUS NONE SEEN Normal NONE SEEN [facility] Comment on above: Performed By: #### U AMIC #### [facility] [address] [address] [address] Shayne Roldan Nitrite Ql (U) Negative Normal NEGATIVE The [facility] Comment on above: Performed By: #### U AMIC #### [facility] [address] [address] [address] Shayne Roldan pH (U) 6.0 [pH] Normal 5-9 [facility] Comment on above: Performed By: #### U AMIC #### [facility] [address] [place] [address] Dr. Shayne Roldan RBC NONE SEEN Abnormal 0-2 [facility] Comment on above: Performed By: #### U AMIC #### [facility] [address] [place] [address] Dr. Sahyne Roldan SPEC GRAVITY <=1.005 Abnormal 1.005-<=1.025 The [facility] Comment on above: Performed By: #### U AMIC #### [facility] [address] [place] [address] Dr. Shayne Roldan UA PROTEIN Negative Normal NEGATIVE/ TRACE [facility] Comment on above: Performed By: #### U AMIC #### [facility] [address] [place] [address] Dr. Shayne Roldan Urobilinogen Qn (U) 0.2 {Rogelio'U}/dL Normal 0.2 - 1. 0 [facility] Comment on above: Performed By: #### U AMIC #### [facility] [address] [place] [address] Dr. Shayne Roldan WBC 5-10 Abnormal NONE SEEN [facility] Comment on above: Performed By: #### U AMIC #### [facility] [address] [place] [address] Dr. Shayne Roldan URIC ACID SERUMon 08-05-2022 Urate [Mass/Vol] 6.5 mg/dL Critically high 2.6-6.0 [facility] Comment on above: Performed By: #### M G, RENAL, URIC #### [facility] [address] [place] [address] Dr. Shayne Roldan URINE T PROTEIN CREAT RATIOo n 08-05-2022 Protein (U) [Mass/Vol] 4.8 mg/dL Normal <=12.0 [facility] Comment on above: Performed By: #### U RTPCR #### [facility] [address] [place] [address] Dr. Shayne Roldan UR PROT CREAT RAT 0.09 Normal The [facility] Comment on above: Performed By: #### U RTPCR #### [facility] [address] [address] [address] Shayne Roldan URINE CREAT 52.65 mg/dL Normal 20.00-300.00 [facility] Comment on above: Performed By: #### U RTPCR #### [facility] [address] [address] [address] Shayne Roldan VITAMIN D 25 OHon 08-05-2022 VIT D 25-OH 38.9 ng/mL Normal [facility] Comment on above: Performed By: #### M G, RENAL, URIC #### [facility] [address] [address] [address] Shayne Roldan VIT D RANGES SEE BELOW Normal [facility] Comment on above: Result Comment: <20 ng/mL Vit D deficient 20 - <30 ng/mL Vit D insufficient 30 - 100 ng/mL Vit D sufficient >100 ng/mL Potential Toxicity Performed By: #### M G, RENAL, URIC #### [facility] [address] [place] [address] Dr. Shayne Roldan IMMUNOGLOBULINS IGA/IGM/IGG/ IGE QUANTITAon 07-12-2022 Immunoglobulin A, Qn, Serum 295 mg/dL Normal 87-352 [facility] Comment on above: Result Comment: Perf ormed at: CB Performed By: #### M G, RENAL, URIC #### [facility] [address] [place] [address] Dr. Shayne Roldan Immunoglobulin E, Total 32 IU/mL Normal 6-495 [facility] Comment on above: Result Comment: Perf ormed at: BN Performed By: #### M G, RENAL, URIC #### [facility] [address] [address] [address] Shayne Roldan Immunoglobulin G, Qn, Serum 729 mg/dL Normal 586-1602 [facility] Comment on above: Result Comment: Perf ormed at: CB Performed By: #### M G, RENAL, URIC #### [facility] [address] [place] [address] Dr. Shayne Roldan Immunoglobulin M, Qn, Serum 75 mg/dL Normal 26-217 [facility] Comment on above: Result Comment: Perf ormed at: CB Performed By: #### M G, RENAL, URIC #### [facility] [address] [address] [address] Shayne Roldan Abstracton 07-08-2022 Abstract [id number] Nell Champion 1955 F Date Provider Department Center 07/08/2022 JOHANNA MEDINA [facility] Family History Problem Relation Age of Onset Heart failure Mother Heart disease Father Family Status - Relation Status Age at Mother Father Normal [facility] CBC AUTO DIFFon 07-05-2022 BASO # 0.1 103/ul Normal 0.0-0.1 [facility] Comment on above: Performed By: #### M G, RENAL, URIC #### [facility] [address] [place] [address] Dr. Shayne Roldan Basophils/100 WBC (Bld) 0.7 % Normal 0.2-2.0 [facility] Comment on above: Performed By: #### M G, RENAL, URIC #### [facility] [address] [address] [address] Shayne Roldan EO # 0.4 103/ul Normal 0.0-0.7 [facility] Comment on above: Performed By: #### M G, RENAL, URIC #### [facility] [address] [address] [address] Shayne Roldan Eosinophils/100 WBC (Bld) 4.4 % Normal 0.9-7.0 [facility] Comment on above: Performed By: #### M G, RENAL, URIC #### [facility] [address] [address] [address] Shayne Roldan Erythrocyte distribution width (RBC) [Ratio] 12.6 % Normal 11.0-15.0 [facility] Comment on above: Performed By: #### M G, RENAL, URIC #### [facility] [address] [place] [address] Dr. Shayne Roldan Hematocrit (Bld) [Volume fraction] 40.2 % Normal 36.0-48.0 [facility] Comment on above: Performed By: #### M G, RENAL, URIC #### [facility] [address] [address] [address] Shayne Roldan Hemoglobin (Bld) [Mass/Vol] 13.6 g/dL Normal 12.0-16.0 [facility] Comment on above: Performed By: #### M G, RENAL, URIC #### [facility] [address] [place] [address] Dr. Shayne Roldan IG # 0.07 10e3/ul Critically high 0.00-0.03 [facility] Comment on above: Performed By: #### M G, RENAL, URIC #### [facility] [address] [place] [address] Dr. Shayne Roldan IG % 0.8 % Critically high 0.0-0.5 [facility] Comment on above: Performed By: #### M G, RENAL, URIC #### [facility] [address] [place] [address] Dr. Shayne Roldan LYMPH # 2.3 103/ul Normal 1.2-3.8 [facility] Comment on above: Performed By: #### M G, RENAL, URIC #### [facility] [address] [place] [address] Dr. Shayne Roldan Lymphocytes/100 WBC (Bld) 24.7 % Normal 20.5-60.0 [facility] Comment on above: Performed By: #### M G, RENAL, URIC #### [facility] [address] [place] [address] Dr. Shayne Roldan MANUAL DIFF REQ NO Normal The [facility] Comment on above: Performed By: #### M G, RENAL, URIC #### [facility] [address] [place] [address] Dr. Shayne Roldan MCH (RBC) [Entitic mass] 30.7 pg Normal 26.7-34.0 [facility] Comment on above: Performed By: #### M G, RENAL, URIC #### [facility] [address] [place] [address] Dr. Shayne Roldan MCHC (RBC) [Mass/Vol] 33.8 g/dL Normal 29.9-35.2 [facility] Comment on above: Performed By: #### M G, RENAL, URIC #### [facility] [address] [place] [address] Dr. Shayne Roldan MCV (RBC) [Entitic vol] 90.7 fL Normal 81.0-99.0 [facility] Comment on above: Performed By: #### M G, RENAL, URIC #### [facility] [address] [place] [address] Dr. Shayne Roldan MONO # 0.7 103/ul Normal 0.3-0.8 [facility] Comment on above: Performed By: #### M G, RENAL, URIC #### [facility] [address] [place] [address] Dr. Shayne Roldan Monocytes/100 WBC (Bld) 7.7 % Normal 1.7-12.0 [facility] Comment on above: Performed By: #### M G, RENAL, URIC #### [facility] [address] [place] [address] Dr. Shayne Roldan NEUT # 5.7 103/ul Normal 1.4-6.5 [facility] Comment on above: Performed By: #### M G, RENAL, URIC #### [facility] [address] [place] [address] Dr. Shayne Roldan Neutrophils/100 WBC (Bld) 61.7 % Normal 43.0-75.0 [facility] Comment on above: Performed By: #### M G, RENAL, URIC #### [facility] [address] [place] [address] Dr. Shayne Roldan Platelet mean volume (Bld) [Entitic vol] 8.8 fL Critically low 9.5-13.5 [facility] Comment on above: Performed By: #### M G, RENAL, URIC #### [facility] [address] [place] [address] Dr. Shayne Roldan PLT 279 103/ul Normal 150-450 [facility] Comment on above: Performed By: #### M G, RENAL, URIC #### [facility] [address] [place] [address] Dr. Shayne Roldan RBC 4.43 106/ul Normal 4.20-5.40 [facility] Comment on above: Performed By: #### M G, RENAL, URIC #### [facility] [address] [place] [address] Dr. Shayne Roldan WBC 9.1 103/ul Normal 4.0-11.0 [facility] Comment on above: Performed By: #### M G, RENAL, URIC #### [facility] [address] [place] [address] Dr. Shayne Roldan Covid-19 PCR ([facility])on SARS-CoV-2 (COVID-19) RNA KAYLEE+probe Ql (Unsp spec) Not detected Normal NOT DETECTED [facility] Comment on above: Result Comment: This test is not yet approved or cleared by the [place] FDA. When there are no FDA-approved or cleared tests available, and other criteria are met, FDA can make tests available under an emergency access mechanism called an Emergency Use Authorization (EUA). The EUA for this test is supported by the Wound Treatment Rn of Health and Human Service's (HHS's) declaration [...] By: #### M G, RENAL, URIC #### [facility] [address] [place] [address] Dr. Shayne Roldan XR CHEST 2 Von [...] NARDA LONDONO Date: 2022-06-08 19:58 Normal [facility] Covid-19 PCR ([facility])on SARS-CoV-2 (COVID-19) RNA KAYLEE+probe Ql (Unsp spec) Not detected Normal NOT DETECTED [facility] Comment on above: Result Comment: This test is not yet approved or cleared by the [place] FDA. When there are no FDA-approved or cleared tests available, and other criteria are met, FDA can make tests available under an emergency access mechanism called an Emergency Use Authorization (EUA). The EUA for this test is supported by the Wound Treatment Rn of Health and Human Service's (HHS's) declaration [...] consistent with SARS-CoV-2. Performed By: #### [facility] #### [facility] [address] [place] [address] Dr. Shayne Roldan DEXA AXIAL 03-01-2022 DEXA AXIAL [facility] Department of Radiology [address] [place] [id number] Patient Name: DIANA CHAMPION : 1955 [...] characteristics. Electronically signed: Luzma Fernandez. Transcribed by: [email or web address], User Resident: Electronically Signed by: LUZMA FERNANDEZ @ 03/02/2022 01:07 PM Normal [facility] SCOLIOSIS 2 VWSon 02-24-2022 SCOLIOSIS 2 [facility] Department of Radiology [address] [place] [id number] Patient Name: DIANA CHAMPION : 1955 Sex: F Age: Race: White Pt. Location: Patient Status: D Ordered Date: 02/24/2022 1:25:00 PM Completed Date: 02/24/2022 01:44 PM Requesting Provider: CINDA ANTONIO Attending Provider: Report Copy To: Signs & Symptoms: M43.10 Spondylolisthesis, site unspecified I10 History: Comments: Views (X-RAY, SCOLIOSIS): PA, Lateral evaluate Exam: SCOLIOSIS 2 [facility] Scoliosis. Worsening pain. Frontal and lateral thoracolumbar spine IMPRESSION: 1. Diffuse disc disease and facet arthritis. Right convex mid lumbar curvature measuring 16 degrees. Interbody fusion hardware lower lumbar spine. Electronically signed: Hugo Lynn. Transcribed by: Tanesha, User Resident: Electronically Signed by: HUGO LYNN @ 02/26/2022 11:07 AM Normal The [facility] Comment on above: Order Comment: Views (X-RAY, SCOLIOSIS): PA, Lateral evaluate CT LUMBAR SPINE W CONTRASTon 01-24-2022 CT LUMBAR SPINE W CONTRAST [facility] Department of Radiology [address] [place] [phone] Patient Name: DIANA CHAMPION : 1955 Sex: F Age: Race: White Pt. Location: Patient Status: D Ordered Date: 01/09/2022 9:00:00 AM Completed Date: 01/24/2022 03:26 PM Requesting Provider: JOO LINN Attending Provider: JOO LINN Report Copy To: UNKNOWN, PHYSICIAN Signs & Symptoms: M54.16 Radiculopathy, lumbar region I10 History: [place] Comments: , CT MYELOGRAM>PAPER WORK IN CHART [...] L1-2. Electronically signed: Gaurang Lawrence. Transcribed by: [email or web address], User Resident: Electronically Signed by: GAURANG LAWRENCE @ 01/26/2022 08:58 AM Normal [facility] Comment on above: Order Comment: , CT MYELOGRAM>PAPER WORK IN CHART LUMBAR MYELOGRAMon 2 LUMBAR MYELOGRAM [facility] Department of Radiology [address] [place] [id number] Patient Name: DIANA CHAMPION : 1955 Sex: F Age: Race: White Pt. Location: Patient Status: O Ordered Date: 01/09/2022 9:00:00 AM Completed Date: 01/24/2022 02:37 PM Requesting Provider: JOO LINN Attending Provider: JOO LINN Report Copy To: UNKNOWN, PHYSICIAN Signs & Symptoms: M54.16 Radiculopathy, lumbar region I10 History: [place] Is patient on thinners? 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 Consent was obtained. Timeout: [place] protocol timeout verification performed. PROCEDURE: Estimated blood [...] Approved by:Debbie Almaguer01/24/2022 3:51 PM. I, Greg Marlwo,have reviewed the image(s) and agree with the findings in this report. Electronically signed: Greg Marlow. Transcribed by: [email or web address], User Resident: DEBBIE JI Electronically Signed by: GREG MARLOW @ 01/24/2022 04:07 PM I personally read this/these film(s) with this resident Normal The [facility] Comment on above: Order Comment: , CT MYELOGRAM> PAPER WORK SCANNED IN CHART , CT MYELOGRAM> PAPER WORK SCANNED IN CHART , , , Ordering Provider - JOO LINN MD , HIP LEFT 1 OR 2 VWS WITH PEL VISon 01-06-2022 HIP LEFT 1 OR 2 VWS WITH PELVIS [facility] Department of Radiology [address] [place] [phone] Patient Name: DIANA CHAMPION : 1955 [...] hardware. Electronically signed: Joe Matthew. Transcribed by: [email or web address], User Resident: Electronically Signed by: JOE MATTHEW @ 01/09/2022 04:45 PM Normal [facility] Comment on above: Order Comment: Evalu ate Vital Signs Date Time Vital Sign Value Performing Clinician Facility 08-17-2023 09:20-0400 Body height 165.1 cm Herberth Joana Other [facility] Other 08-17-2023 09:20-0400 Body mass index (BMI) [Ratio] 38.1 kg/m2 Herberth Joana Other [facility] Other 08-17-2023 09:20-0400 Body temperature 98.8 [degF] Herberth Joana Other [facility] Other 08-17-2023 09:20-0400 Body weight 103.87 kg Herberth Joana Other [facility] Other 08-17-2023 09:20-0400 Diastolic blood pressure 85 mm[Hg] Herberth Joana Other [facility] Other 08-17-2023 09:20-0400 Respiratory rate 18 /min Herberth Joana Other [facility] Other 08-17-2023 09:20-0400 SaO2% (BldA) [Mass fraction] 94 % Herberth Joana Other [facility] Other 08-17-2023 09:20-0400 Systolic blood pressure 151 mm[Hg] Herberth Joana Other [facility] Other 03-02-2023 10:00-0400 Body height 165.1 cm Herberth Joana Other [facility] Other 03-02-2023 10:00-0400 Body mass index (BMI) [Ratio] 37.29 kg/m2 Herberth Joana Other [facility] Other 03-02-2023 10:00-0400 Body temperature 98.9 [degF] Herberth Joana Other [facility] Other 03-02-2023 10:00-0400 Body weight 101.65 kg Herberth Joana Other [facility] Other 03-02-2023 10:00-0400 Diastolic blood pressure 76 mm[Hg] Herberth Joana Other [facility] Other 03-02-2023 10:00-0400 Respiratory rate 20 /min Herberth Joana Other [facility] Other 03-02-2023 10:00-0400 SaO2% (BldA) [Mass fraction] 96 % Herberth Joana Other [facility] Other 03-02-2023 10:00-0400 Systolic blood pressure 136 mm[Hg] Herberth Joana Other [facility] Other 12-08-2022 09:30-0500 Diastolic blood pressure 59 mm[Hg] MD Shaikh Ohara Work Phone: [facility] 12-08-2022 09:30-0500 Heart rate 55 /min MD Shaikh Ohara Work Phone: [facility] 12-08-2022 09:30-0500 Respiratory rate 16 /min MD Shaikh Ohara Work Phone: [facility] 12-08-2022 09:30-0500 SaO2% (BldA) [Mass fraction] 96 % MD Shaikh Ohara Work Phone: [facility] 12-08-2022 09:30-0500 Systolic blood pressure 112 mm[Hg] MD Shaikh Ohara Work Phone: [facility] 12-08-2022 06:54-0500 Body height 162.56 cm MD Shaikh Ohara Work Phone: [facility] 12-08-2022 06:54-0500 Body temperature 98.2 [degF] MD Shaikh Ohara Work Phone: [facility] 12-08-2022 06:54-0500 Body weight 104.32 kg MD Shaikh Ohara Work Phone: [facility] 08-09-2022 11:00-0400 Body height 165.1 cm Herberth Joana Other [facility] Other 08-09-2022 11:00-0400 Body mass index (BMI) [Ratio] 37.87 kg/m2 Herberth Joana Other [facility] Other 08-09-2022 11:00-0400 Body temperature 97.2 [degF] Herberth Joana Other [facility] Other 08-09-2022 11:00-0400 Body weight 103.24 kg Herberth Joana Other [facility] Other 08-09-2022 11:00-0400 Diastolic blood pressure 88 mm[Hg] Herberth Joana Other [facility] Other 08-09-2022 11:00-0400 Respiratory rate 20 /min Herberth Joana Other [facility] Other 08-09-2022 11:00-0400 SaO2% (BldA) [Mass fraction] 95 % Herberth Joana Other [facility] Other 08-09-2022 11:00-0400 Systolic blood pressure 133 mm[Hg] Herberth Joana Other [facility] Other 11-17-2021 10:40-0500 Body height 165.1 cm Herberth Joana Other [facility] Other 11-17-2021 10:40-0500 Body mass index (BMI) [Ratio] 37.97 kg/m2 Herberth Joana Other [facility] Other 11-17-2021 10:40-0500 Body temperature 97.8 [degF] Herberth Joana Other [facility] Other 11-17-2021 10:40-0500 Body weight 103.51 kg Herberth Joana Other [facility] Other 11-17-2021 10:40-0500 Diastolic blood pressure 70 mm[Hg] Herberth Joana Other [facility] Other 11-17-2021 10:40-0500 Respiratory rate 18 /min Herberth Joana Other [facility] Other 11-17-2021 10:40-0500 SaO2% (BldA) [Mass fraction] 94 % Herberth Joana Other [facility] Other 11-17-2021 10:40-0500 Systolic blood pressure 130 mm[Hg] Herberth Joana Other [facility] Other 08-30-2021 13:15-0400 Body height 165.1 cm Rena Ginty Other [facility] Other 08-30-2021 13:15-0400 Body mass index (BMI) [Ratio] 36.61 kg/m2 Rena Ginty Other [facility] Other 08-30-2021 13:15-0400 Body temperature 98.7 [degF] Rena Ginty Other [facility] Other 08-30-2021 13:15-0400 Body weight 99.79 kg Rena Ginty Other [facility] Other 08-30-2021 13:15-0400 SaO2% (BldA) [Mass fraction] 90 % Rena Ginty Other [facility] Other Encounters Encounter Date Encounter Type Care Provider Facility Start: 11-02-2023 End: 11-02-2023 ambulatory SAUNDERS FAWWAD Not Available Start: 10-09-2023 End: 10-10-2023 ambulatory Jayshree Vargas MD Facility:[facility] Start: 10-04-2023 End: 10-04-2023 ambulatory [facility]UND[facility] FAWW[facility] Not Available Start: 09-07-2023 End: 09-07-2023 ambulatory Herberth Joana Other [facility] Other Start: 09-07-2023 Telephone encounter [facility]berth Joana [facility] Nephrology Start: 08-28-2023 End: 08-28-2023 ambulatory Herberth Joana Other [employer] Other Start: 08-28-2023 Telephone encounter Herberth Joana [facility] Start: 08-21-2023 End: 08-22-2023 ambulatory Jayshree Vargas MD Facility:[facility] Start: 08-17-2023 End: 08-17-2023 ambulatory Herberth Joana Other [employer] Other Start: 08-17-2023 Office outpatient visit 25 minutes Herberth Joana [facility] Start: 05-08-2023 End: 05-08-2023 [facility] Start: 04-04-2023 End: 04-04-2023 ambulatory SHAIKH Dimitry OHARA Facility:[facility] Start: 03-24-2023 End: 03-25-[address] STEPH GRANADOS Facility:[facility] Start: 03-23-2023 ambulatory JOO [facility] Start: 03-02-2023 End: 03-02-2023 ambulatory Herberth Joana Other [facility] Other Start: 03-02-2023 Office outpatient visit 25 minutes Herberth Joana [facility] Start: 02-25-2023 End: 02-26-2023 ambulatory HERBERTH JOANA Facility:[facility] Start: 02-22-2023 End: 02-23-2023 ambulatory BO JOHNY . Facility:[facility] Start: 12-15-2022 End: 12-16-[address] JACK HALL . Facility:[facility] Start: 12-08-2022 End: 12-08-2022 ambulatory Shaikh Lev Facility:[facility] Start: 12-08-2022 End: 12-08-2022 Admission to same day surgery center MD Shaikh Ohara Work Phone: [facility] Work Phone: Start: 12-08-2022 End: 12-08-2022 ambulatory MD Shaikh Ohara Work Phone: [facility] Work Phone: Start: 11-11-2022 End: 11-11-[address] JACK HALL . Facility:[facility] Start: 11-09-2022 End: 11-09-2022 ambulatory Gilma Ruelashous Other [employer] Other Start: 11-09-2022 Telephone encounter Azkatherine Ruelashous [facility] Start: 08-19-2022 End: 08-20-2022 ambulatory HERBERTH JOANA Facility:[facility] Start: 08-09-2022 End: 08-09-2022 ambulatory Herberth Joana Other [employer] Other Start: 08-09-2022 Office outpatient visit 10 minutes Herberth Joana [facility] Start: 08-09-2022 Telephone encounter Herberth Joana [facility] Start: 08-05-2022 Telephone encounter Herberth Joana [facility] Start: 08-05-2022 End: 08-06-2022 ambulatory HERBERTH JOANA [employer] Other Start: 07-08-2022 End: 07-08-2022 ambulatory Gato Domingo Other [employer] Other Start: 07-08-2022 Telephone encounter Gato Cesar ck [facility] Start: 07-05-2022 End: 07-06-2022 ambulatory SAUNDERS H FAWWAD Facility:[facility] Start: 06-08-2022 End: 06-09-2022 ambulatory SAUNDERS H FAWWAD Facility:[facility] Start: 06-07-2022 End: 06-07-2022 ambulatory SAUNDERS H FAWWAD Facility:[facility] Start: 01-24-2022 End: 01-25-2022 ambulatory PHYSICIAN UNKNOWN Facility:[facility] Start: 11-17-2021 End: 11-17-2021 ambulatory Herberth Joana Other [employer] Other Start: 11-17-2021 Office outpatient visit 15 minutes Herberth Joana [facility] Start: 08-30-2021 Office outpatient visit 15 minutes Rena Hurd [facility] Start: 09-11-2020 End: 09-11-2020 Chart abstracting Miguelito Buck Work Phone: Hematology/Oncology Start: 09-11-2020 End: 09-11-2020 Patient encounter procedure External Provider [facility] Start: 09-11-2020 Results Only External Provider Exter [facility] Start: 09-30-2019 End: 09-30-2019 Patient encounter procedure [facility] Start: 07-07-2017 End: 07-07-2017 Admission to day surgery [facility] Start: 05-24-2004 Evaluation and management of inpatient [facility] Start: 04-26-2004 Evaluation and management of inpatient [facility] Procedures Date Procedure Procedure Detail Performing Clinician Start: 12-08-2022 Colonoscopy MD Shaikh Ohara Work Phone: Start: 09-11-2020 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 Bank Examiner al Provider Start: 09-11-2020 EXTERNAL LAB External P rovider Start: 09-11-2020 EXTERNAL PROCEDURE Exte rnal Provider Start: 09-30-2019 Ultrasonography of b ilateral kidneys Steph Collier Plan of Treatment Date Care Activity Detail Author Start: 12-08-2022 [facility] Start: 07-07-2020 Influenza vaccination INFLUENZA (#1) [facility] Start: 2006 SHINGRIX VACCINE (1 of 2) SHINGRIX VACCINE (1 of 2) [facility] Start: 2006 Tuberculosis screening COLORECTAL CANCER SCREENING,SEE MODIFIER [facility] Start: 2001 DIABETES SCREEN DIABETES SCREEN [facility] Start: 2001 LIPID SCREEN LIPID SCREEN [facility] Start: 1996 Mammography MAMMOGRAM [facility] Start: 1986 HPV TESTING HPV TESTING [facility] Start: 1977 PAP TESTING PAP TESTING [facility] Start: 1975 Urine microalbumin profile DTAP,TDAP,TD (1 - Tdap) [facility] Start: 1974 HEPATITIS C SCREENING HEPATITIS C SCREENING [facility] Start: 1974 HIV SCREENING HIV SCREENING [facility] Patient Education Colon Polypect shahram Hemorrhoids (DC) Diverticulosis (DC) [facility] Work Phone: Adona Ileanai c Immunizations Immunization Date Immunization Notes Care Provider Henrietta tanmayfernanda 07-18-2018 Depo-Medrol 40 mg Rena Gint y Other [employer] Other 01-31-2018 Depo-Medrol 40 mg Rena Gint y Other [employer] Other 08-09-2017 influenza, seasonal, injectable, preservative free Rena Ginty Other [employer] Other Payers Date Payer Category Payer Unknown 2022 Self-pay [id number] 2021 Medicare [id number] 2020 Medicaid [id number] 2019 Medicaid MEDICAID [facility] MEDICAID [id number] 2019-Present Medicaid [id number] 2016 Medicare MEDICARE MEDICAR E A AND B [id number] 2016-Present [place] [id number] 1959 Unknown [id number] 1956 Unknown [id number] 2.16.840.1.788717.3.579.2.647 1956 Unknown [id number] 2.16.840.1.855738.3.579.2.593 1956 Unknown [id number] 2.16.840.1.673758.3.579.2.593 1956 Unknown [id number] 2.16.840.1.667492.3.579.2.593 1956 Unknown [id number] 2.16.840.1.432072.3.579.2.593 1956 Unknown [id number] 2.16.840.1.962474.3.579.2.593 1956 Unknown [id number] 2.16.840.1.652946.3.579.2.593 1956 Unknown [id number] 2.16.840.1.142720.3.579.2.593 1956 Unknown [id number] 2.16.840.1.009539.3.579.2.593 1956 Unknown [id number] 2.16.840.1.368889.3.579.2.593 1956 Unknown [id number] 2.16.840.1.420513.3.579.2.593 1956 Unknown [id number] 2.16.840.1.919340.3.579.2.593 1956 Unknown [id number] 2.16.840.1.386241.3.579.2.196 1956 Unknown [id number] 2.16.840.1.635023.3.579.2.196 1956 Unknown [id number] 2.16.840.1.383867.3.579.2.1259 1956 Unknown [id number] 2.16.840.1.161933.3.579.2.1259 Medicare [id number] Unknown HCAP/HFA/FAP Active [id number] Unknown [id number] 2.16.840.1.926728.3.579.2.531 Social History Date Type Detail Facility Tobacco smoking stat us NVIS Unknown if ever smoked [facility] Start: 1955 Sex Assigned At Female F [facility] Start: 09-11-2020 End: 12-08-2022 Tobacco smoking status NHIS Never smoker [facility] Start: 09-11-2020 Tobacco use and exposure Never used [facility] Start: 09-11-2020 Alcohol intake Lifetime non-d my (finding) [facility] Start: 09-11-2020 History SDOH Alcohol Frequency 1 [facility] Sex Assigned At Not on file [facility] Sex Assigned At Sex Assigned At Bir th [facility] Self[facility]T Other Goals Date Patient Goal Desired Activity /State Clinical Notes 08-30-2021 to 09-07-2023 Note Date & Type Note Facility 09-07-2023 Evaluation note Encounter Date Diagnosis Assessment Notes Sep, Hypomagnesemia (ICD-10 - E83.42) [facility] Other 10-23-2023 Evaluation note* Encounter Date Diagnosis Assessment Notes Treatment Notes Treatment Clinical Notes Aug, Nico lopez w cr kid I-IV (ICD-10 - I12.9) [facility] Other 10-12-2023 Evaluation note* Encounter Date Diagnosis [...] PPI induced GI losses. Continue oral Magnesium [employer] [facility] Chief Complaint: Patient here for 1 year follow up CAD and hypertension. She was recently discharged from [facility] for Covid-19. She says hydrochlorothiazide [...] breath since then. She has seen her [employer]. Her chest pain is noncardiac. She has [...] 325 mg by mouth., Disp: , Rfl: uklzjxdogxz-nwewmvxhk-ypvuhwzr 100-62.5-25 mcg blister with device, , Disp: [...] CTAB, no increased eff (more content not included)...[facility]05-19-2023 NotePROCEDURE: XR HIP RT 2 3V W PELVIS HISTORY: Pain in right hip joint , chronic COMPARISON: XR L-spine 02/26/2019, XR left hip with pelvis 03/11/2017 FINDINGS: BONES:Complete loss of the right hip joint space with whxn-wz-fkui articulation, subchondral sclerosis and cysts, and large periarticular degenerative osteophytes. No fracture or dislocation. Left hip replacement. Mechanical fusion of L5-S1 and moderate dextroscoliosis of lumbar spine. SOFT TISSUES:No visible soft tissue swelling. EFFUSION:None visible. OTHER: Negative. IMPRESSION: 1. Marked degenerative joint disease of the right hip; progressed since prior study. 2. Stable surgical changes. Electronically authenticated by: STEPH GRANADOS Date: 2023-03-24 12:55[facility]05-18-2023 NoteSubjective 03/23/23 Diana Champion is a 67 [...] LIGATION Past Medical History: Diagnosis Date Cancer ([facility] Hypertension Objective General: Body mass index is [...] from the patient's PCP as well as [employer] for a right anterior total hip arthroplasty. [...] may be an additional personal documentation from me.[facility]04-27-2023 Evaluation note* Encounter Date Diagnosis Assessment [...] PPI induced GI losses. Continue oral Magnesium [facility] Self[facility]T Other 02-02-2023 [facility]* Encounter Date Diagnosis Assessment Notes Treatment Notes Treatment Clinical Notes Nov, Hypokalemia (ICD-10 - E87.6) Nov, Hypomagnesemia (ICD-10 - E83.42) [employer] Other 10-04-2022 Evaluation note* Encounter Date Diagnosis [...] office does not accept her new insurance. [employer] Other 09-02-2022 Evaluation note* Encounter Date Diagnosis Assessment Notes Treatment Notes Treatment Clinical Notes Jul, History of colon cancer (ICD-10 - Z85.038) [employer] Other 01-12-2022 Evaluation note* Encounter Date Diagnosis [...] potassium wasting. I have prescribed oral potassium. [employer] Other 10-25-2021 Evaluation note* Encounter Date Diagnosis [...] Patient care instructions given in writting by [facility] Care At Home document [employer] Other Evaluation noteNo [facility] Other Evaluation note* Diagnosis Onset Date Resolution Status History of colon cancer [facility] Work Phone: History general Narrative [...] IN 08/2019 Hospitalization History HIP REVISION 03/2020 [employer] Other History general Narrative - Reported* Type [...] Hospitalization History COVID X 2 WEEKS 04/2023 [employer] Other Hospital Discharge instructions Additional Instructions DISCHARGE [...] if you have any problems. -Office number [phone] Work Phone: Advance Directives No Advanced Directives [...] or prosecute any alcohol or drug abuse patient.[facility] the event this information is protected by the Federal Confidentiality of Alcohol and Drug Abuse Patient Records regulations: The Federal rules restrict any use of the information to criminally investigate or prosecute any alcohol or drug abuse patient.[facility] the event this information is protected by the Federal Confidentiality of Alcohol and Drug Abuse Patient Records regulations: The Federal rules restrict any use of the information to criminally investigate or prosecute any alcohol or drug abuse patient.[facility] the event this information is protected by the Federal Confidentiality of Alcohol and Drug Abuse Patient Records regulations: The Federal rules restrict any use of the information to criminally investigate or prosecute any alcohol or drug abuse patient.[facility] INFORMATION SOURCE (unrecogn ized section and content) DATE CREATED AUTHOR 03/03/2022 [facility] DATE CREATED AUTHOR AUTHOR'S ORGANIZ ATION 04/17/2023 [facility] DATE CREATED AUTHOR AUTHOR'S ORGANIZ ATION 05/08/2023 [facility] DATE CREATED AUTHOR AUTHOR'S ORGANIZ ATION 06/07/2023 [facility] DATE CREATED AUTHOR AUTHOR'S ORGANIZ ATION 10/20/[address] [facility] DATE CREATED AUTHOR AUTHOR'S ORGANIZ ATION 11/04/2023 [facility] [employer] EPIC REASON FOR VISIT (unrecogniz ed [...] BE BASED ON THE PRIMARY CLINICAL RECORDS. [employer] provides no warranty or guarantee of the accuracy or completeness of information in this document.
--- NOTE | 2023-11-25 14:11 | XR_ITS ---
The [address] [address] Patient Name: JHONATAN MONTOYA MRN: [id number] date: 1955 Sex: F Assigned Patient Location: ER Current Patient Location: ER Accession/Order Number: [id number] Exam Date: 11/25/2023 14:35 Report Date: 11/25/2023 14:56 At the request of: BUZZ GIBBONS Procedure: XR chest 1V EXAMINATION: XR chest 1V HISTORY: shortness of breath COMPARISON: XR chest 10/25/2023 FINDINGS: LUNGS: Increased opacity and stranding within lung bases bilaterally. VASCULATURE: No increased pulmonary vasculature. PLEURA: No pneumothorax, effusion, or pleural thickening. CARDIAC: No cardiomegaly or cardiac silhouette abnormality. MEDIASTINUM: No visible mass or adenopathy. BONES: No fracture or visible bone lesion. OTHER: Negative. XR/XR chest 1V IMPRESSION: 1. Underexpanded lungs with moderate bibasilar infiltrates versus atelectasis; new since prior study. Electronically authenticated by: STEPH GRANADOS Date: 11/25/2023 14:56
--- NOTE | 2023-11-25 14:11 | ECG_ITS ---
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
--- NOTE | 2023-11-25 14:20 | ED_ITS ---
HPI - SOB/Dyspnea General Chief Complaint: Shortness of Breath/Dyspnea Stated Complaint: LOW OXYGEN Time Seen by Provider: 11/25/23 14:05 Source: patient Mode of arrival: walk-in Limitations: no limitations History of Present Illness HPI Narrative: Productive cough, shortness of breath for the last 3-4 days. Worse last night. Sometimes can bring up the phlegm in her chest - but not always. Home O2 sat dropped into 80s with exertion. Chills, no fever. No chest pain or palpitations. No vomiting or diarrhea. Uncertain about potential ill exposures. PCP is Lev. She has COPD and sees Dr Lopes. Related Data Home Medications Medication Instructions Recorded Confirmed albuterol sulfate 90 mcg/actuation 2 puff inhalation Q4H PRN 04/10/23 11/25/23 aerosol inhaler shortness of breath or wheezing fluticasone fur. 200 mcg-umeclid 1 inh inhalation Q24H COPD 04/10/23 11/25/23 62.5 mcg-vilant 25 mcg inhalat.powder (Trelegy Ellipta) magnesium oxide 400 mg (241.3 mg 400 mg PO DAILY 04/10/23 11/25/23 magnesium) tablet omeprazole 20 mg capsule,delayed 20 mg PO BID 04/10/23 11/25/23 release losartan 50 mg tablet (Cozaar) 50 mg PO BID 08/21/23 11/25/23 alendronate 35 mg tablet 35 mg PO .weekly 09/14/23 11/25/23 montelukast 10 mg tablet 10 mg PO DAILY 09/14/23 11/25/23 pramipexole 0.25 mg tablet 0.25 mg PO QPM 09/14/23 11/25/23 (Mirapex) amlodipine 5 mg tablet 5 mg PO QDAY 11/25/23 11/25/23 cholecalciferol (vitamin D3) 25 25 mcg PO QDAY 11/25/23 11/25/23 mcg (1,000 unit) tablet paroxetine HCl 30 mg tablet 30 mg PO QDAY 11/25/23 11/25/23 pregabalin 75 mg capsule 75 mg PO BID 11/25/23 11/25/23 sodium chloride 0.9 % for 3 ml inhalation Q8H 11/25/23 11/25/23 nebulization solifenacin 10 mg tablet 10 mg PO QDAY 11/25/23 11/25/23 trazodone 100 mg tablet 100 mg PO .qhs 11/25/23 11/25/23 Previous Rx's Medication Instructions Recorded ipratropium 0.5 mg-albuterol 3 mg 3 ml inhalation Q6H PRN shortness 04/22/23 (2.5 mg base)/3 mL nebulization of breath or wheezing #90 mL soln Allergies Allergy/AdvReac Type Severity Reaction Status Date / Time No Known Drug Allergies Allergy Verified 11/25/23 14:06 [facility] Medical History Acute infective exacerbation of chronic obstructive airway disease ?J44.1 - Chronic obstructive pulmonary disease with (acute) exacerbation (ICD-10) Asthma ?J45.909 - Unspecified asthma, uncomplicated (ICD-10) Chronic low back pain ?M54.50 - Low back pain, unspecified (ICD-10) ?G89.29 - Other chronic pain (ICD-10) Chronic obstructive pulmonary disease ?J44.9 - Chronic obstructive pulmonary disease, unspecified (ICD-10) Depression ?F32.A - Depression, unspecified (ICD-10) Heart murmur ?R01.1 - Cardiac murmur, unspecified (ICD-10) Hypertension ?I10 - Essential (primary) hypertension (ICD-10) Hypoxia ?R09.02 - Hypoxemia (ICD-10) Social History Smoking status: Never smoker Do you think of yourself as: straight/heterosexual Gender Identity: female Exam Narrative Exam Narrative: Nurses notes and vital signs reviewed and patient is not hypoxic. afebrile General: Well-appearing and in no apparent distress. Skin: Warm, dry, no pallor noted. No rash. Head: Normocephalic, atraumatic. Eye: Pupils are equal, round and EOMI. No scleral icterus. Ears, Nose, Mouth, and Throat: Oral mucosa is moist Cardiovascular: Regular Rate and Rhythm without murmur, gallop or rub. Respiratory: No accessory muscle use or respiratory distress. Harsh breath sounds with bibasilar rales and scattered rhonchi throughout. Musculoskeletal: normal ROM, no calf or popliteal tenderness, no lower extremity edema/swelling Neurological: A&O x4. No cranial nerve dysfunction observed. No truncal ataxia. Moves all extremities. Sensation intact. Psychiatric: Cooperative and interactive. Normal mood and affect. Constitutional Vital Signs, click to edit/add: Last Vital Signs Temp 98.8 F 11/25/23 14:03 Pulse 76 11/25/23 16:50 Resp 25 H 11/25/23 16:50 BP 120/60 11/25/23 16:58 Pulse Ox 93 L 11/25/23 16:50 O2 Del Method Room Air 11/25/23 14:14 O2 Flow Rate 2 11/25/23 14:14 Course Vital Signs Vital signs: Vital Signs Temperature 98.8 F 11/25/23 14:03 Pulse Rate 93 H 11/25/23 14:03 Respiratory Rate 26 H 11/25/23 14:03 Blood Pressure 122/79 11/25/23 14:03 Pulse Oximetry 90 L 11/25/23 14:03 Oxygen Delivery Method Room Air 11/25/23 14:03 Temperature 98.8 F 11/25/23 14:03 Pulse Rate 76 11/25/23 16:50 Respiratory Rate 25 H 11/25/23 16:50 Blood Pressure 120/60 11/25/23 16:58 Pulse Oximetry 93 L 11/25/23 16:50 Oxygen Delivery Method Room Air 11/25/23 14:14 Oxygen Delivery Flow Rate 2 11/25/23 14:14 MDM - SOB/Dyspnea MDM Narrative Medical decision making narrative: 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 Blood drawn and sent for evaluation. Portable chest x-ray obtained. The patient was given a DuoNeb treatment in the emergency department. WBC 17.5. CXR = bibasilar infiltrates, new since last study. Blood cultures and lactate obtained. Patient given IV Levaquin 750mg. Lactate elevated at 2.4. Repeat lactate pending. Initial systolic BP >90 and her BP increased during ED stay - no need for 30mL/kg IVF. Normal BMP. Negative troponin, BNP, Covid and Influenza. ABG = normal pH but low paO2 = 59.6. CT angio chest obtained to further evaluate her hypoxemia. No PE identified on CT by radiologist. She has bibasilar pneumonia. Call placed to Dr Barboza - admitting physician [employer] - to discuss admission and he agrees - inpatient, medsur. Lab Data Attestation: I reviewed the patient's lab results. Labs: Lab Results 11/25/23 11/25/23 Range/Units 14:15 14:34 WBC 17.5 H (4.0-11.0) 10^3/uL RBC 4.16 L (4.20-5.40) 10^6/uL Hgb 12.6 (12.0-16.0) g/dL Hct 39.6 (36.0-48.0) % MCV 95.2 (81.0-99.0) fL MCH 30.3 (26.7-34.0) pg MCHC 31.8 (29.9-35.2) g/dL RDW 13.7 (11.0-15.0) % Plt Count 252 (150-450) 10^3/uL MPV 9.0 L (9.5-13.5) fL Neut % (Auto) 83.6 H (43.0-75.0) % Lymph % (Auto) 9.2 L (20.5-60.0) % Bucks % (Auto) 5.5 (1.7-12.0) % Eos % (Auto) 0.7 L (0.9-7.0) % Baso % (Auto) 0.3 (0.2-2.0) % Neut # (Auto) 14.6 H (1.4-6.5) 10^3/uL Lymph # (Auto) 1.6 (1.2-3.8) 10^3/uL Bucks # (Auto) 1.0 H (0.3-0.8) 10^3/uL Eos # (Auto) 0.1 (0.0-0.7) 10^3/uL Baso # (Auto) 0.1 (0.0-0.1) 10^3/uL Abs Immat Gran (auto) 0.13 H (0.00-0.03) 10^3/uL Imm/Tot Granulo (auto) 0.7 H (0.0-0.5) % Puncture Site Lr ABG pH 7.406 (7.350-7.450) ABG pCO2 41.6 (35.0-45.0) mmHg ABG pO2 59.6 L* (80.0-100.0) mmHg ABG HCO3 26.1 H (22.0-26.0) mmol/L ABG O2 Saturation 93.4 % ABG Base Excess 1.4 (-2.0-2.0) mmol/L Hardy Test Positive (POSITIVE) O2 Liters/Min 2 Sodium 138 (136-145) mmol/L Potassium 3.7 (3.5-5.1) mmol/L Chloride 100 (98-107) mmol/L Carbon Dioxide 28.2 (21.0-32.0) mmol/L Anion Gap 13.5 BUN 12.0 (7.0-18.0) mg/dL Creatinine 1.27 H (0.55-1.02) mg/dL Est GFR ( Amer) 51 L (>=60) Est GFR (Non-Af Amer) 42 L (>=60) BUN/Creatinine Ratio 9.4 Glucose 91 (74-106) mg/dL Lactate 2.4 H* (0.4-2.0) mmol/L Calcium 8.5 (8.5-10.1) mg/dL Troponin I High Sens 11.6 (4.0-51.3) pg/mL NT-Pro-B Natriuret Pep 235.0 (<=900.0) pg/mL Adenovirus (PCR) Not detected (NOT DETECTE) C. pneumoniae DNA (PCR) Not detected (NOT DETECTE) Coronavirus Type OC43 Not detected (NOT DETECTE) Coronavirus Type HKU1 Not detected (NOT DETECTE) Coronavirus Type 229E Not detected (NOT DETECTE) Coronavirus Type NL63 Not detected (NOT DETECTE) Human Metapneumovir PCR Not detected (NOT DETECTE) Influenza Type A Ag Negative Influenza Type B Ag Negative M. pneumoniae (PCR) Not detected (NOT DETECTE) Parainfluenza PCR Not detected (NOT DETECTE) Parainfluenza 2 (PCR) Not detected (NOT DETECTE) Parainfluenza 3 (PCR) Not detected (NOT DETECTE) Parainfluenza 4 (PCR) Not detected (NOT DETECTE) RSV (RT-PCR) Not detected (NOT DETECTE) Entero/Rhino (PCR) Not detected (NOT DETECTE) SARS-CoV-2 (PCR) Not detected (NOT DETECTE) SARS-CoV-2 Ag (CV2AG) Negative (NEGATIVE) Bordetella pertussis (PCR) Not detected (NOT DETECTE) B parapertussis DNA PCR Not detected (NOT DETECTE) Influenza Type A (PCR) Not detected (NOT DETECTE) Influenza Type B (PCR) Not detected (NOT DETECTE) ABG Data Attestation: I personally reviewed and interpreted this ABG as follows: Interpretation: pH 7.4,pCO2 41.6, paO2 59.6, sat 93% on 2LPM NC. - hypoxia without CO2 retention. Imaging Data Chest x-ray: Radiologist's impression: ITS Impressions Chest X-Ray 11/25/23 14:11 IMPRESSION: 1. Underexpanded lungs with moderate bibasilar infiltrates versus atelectasis; new since prior study. Electronically authenticated by: STEPH GRANADOS Date: 11/25/2023 14:56 CT scan - chest: My impression: IMPRESSION: Limited examination due to breathing artifact and poor contrast opacification of pulmonary arteries. No definite CT evidence for pulmonary embolism is seen in the central pulmonary arteries. Left lung base consolidation is seen. Small patchy and nodular infiltrates are also seen in the lungs bilaterally. Electronically authenticated by: ILIANA JONES Date: 11/25/2023 17:05 Radiologist's impression: ITS Impressions Chest X-Ray 11/25/23 14:11 IMPRESSION: 1. Underexpanded lungs with moderate bibasilar infiltrates versus atelectasis; new since prior study. Electronically authenticated by: STEPH GRANADOS Date: 11/25/2023 14:56 ECG Data Interpretation: EKG interpretation: Emergency Department physician interpretation. Normal sinus rhythm at 82bpm. Incomplete right bundle branch block. Left axis deviation. Nonspecific T wave changes. No ST segment elevation or depression. Discharge Plan Discharge Chief Complaint: Shortness of Breath/Dyspnea Clinical Impression: Community acquired pneumonia, Severe sepsis Patient Disposition: Admitted As Inpatient Time of Disposition Decision: 17:09 Prescriptions / Home Meds: No Action magnesium oxide 400 mg (241.3 mg magnesium) tablet 400 mg PO DAILY Rx Instructions: WITH FOOD omeprazole 20 mg capsule,delayed release(DR/EC) 20 mg PO BID albuterol sulfate 90 mcg/actuation HFA aerosol inhaler 2 puff INHALATION Q4H PRN (Reason: shortness of breath or wheezing) Trelegy Ellipta 200-62.5-25 mcg blister with device 1 inh INHALATION Q24H ipratropium-albuterol 0.5 mg-3 mg(2.5 mg base)/3 mL solution for nebulization 3 ml inhalation Q6H PRN (Reason: shortness of breath or wheezing) Qty: 90 0RF losartan [Cozaar] 50 mg tablet 50 mg PO BID alendronate 35 mg tablet 35 mg PO .weekly pramipexole [Mirapex] 0.25 mg tablet 0.25 mg PO QPM Rx Instructions: administer 2 - 3 hours before bedtime montelukast 10 mg tablet 10 mg PO DAILY amlodipine 5 mg tablet 5 mg PO QDAY cholecalciferol (vitamin D3) 25 mcg (1,000 unit) tablet 25 mcg PO QDAY paroxetine HCl 30 mg tablet 30 mg PO QDAY pregabalin 75 mg capsule 75 mg PO BID sodium chloride 0.9 % solution for nebulization 3 ml INHALATION Q8H solifenacin 10 mg tablet 10 mg PO QDAY trazodone 100 mg tablet 100 mg PO .qhs Referrals: Shaikh Ohara MD [Primary Care Provider] - 1 week
[2023-11-25] MEDS: IPRATROPIUM/ALBUTEROL SULFATE 3 ML AMPUL.NEB IH ×3 (14:23→23:18)
[2023-11-25 14:25] LABS: Basophils Absolute Auto 0.1 10^3/uL (0.0-0.1); Basophils Percent Auto 0.3 % (0.2-2.0); Eosinophils Absolute Auto 0.1 10^3/uL (0.0-0.7); Eosinophils Percent Auto 0.7 % (0.9-7.0); Hematocrit 39.6 % (36.0-48.0); Hemoglobin 12.6 g/dL (12.0-16.0); Immature Granulocytes Abs Auto 0.13 10^3/uL (0.00-0.03); Immature Granulocytes Pct Auto 0.7 % (0.0-0.5); Lymphocytes Absolute Auto 1.6 10^3/uL (1.2-3.8); Lymphocytes Percent Auto 9.2 % (20.5-60.0); Mean Corpuscular HGB Conc 31.8 g/dL (29.9-35.2); Mean Corpuscular Hemoglobin 30.3 pg (26.7-34.0); Mean Corpuscular Volume 95.2 fL (81.0-99.0); Monocytes Percent Auto 5.5 % (1.7-12.0); Neutrophils Absolute Auto 14.6 10^3/uL (1.4-6.5); Neutrophils Percent Auto 83.6 % (43.0-75.0); Platelet Count 252 10^3/uL (150-450); Red Blood Count 4.16 10^6/uL (4.20-5.40); Red Cell Distribution Width 13.7 % (11.0-15.0); White Blood Count 17.5 10^3/uL (4.0-11.0)
[2023-11-25] MEDS: METHYLPREDNISOLONE SOD SUCC PF 125 MG/2 ML VIAL IVP (14:37)
[2023-11-25 14:38] LABS: Influenza Virus A Antigen Negative; Influenza Virus B Antigen Negative; Internal Control Within Normal Limits; SARS-CoV-2 Ag NEGATIVE (NEGATIVE)
[2023-11-25 14:40] LABS: ABG PCO2 41.6 mmHg (35.0-45.0); pH ABG 7.406 (7.350-7.450)
[2023-11-25 14:41] LABS: Allen Test POSITIVE (POSITIVE); Base Excess ABG 1.4 mmol/L (-2.0-2.0); HCO3 ABG 26.1 mmol/L (22.0-26.0); Liters per Minute 2; O2 Mode NC; Oxygen Saturation ABG 93.4 %; Puncture Site LR
[2023-11-25 14:43] LABS: PO2 ABG 59.6 mmHg (80.0-100.0)
[2023-11-25 14:48] LABS: Anion Gap 13.5; BUN Creatinine Ratio 9.4; Calcium 8.5 mg/dL (8.5-10.1); Carbon Dioxide 28.2 mmol/L (21.0-32.0); Chloride 100 mmol/L (98-107); Estimated GFR (African America 51 (>=60); Estimated GFR (Non-African Ame 42 (>=60); Glucose 91 mg/dL (74-106); Potassium 3.7 mmol/L (3.5-5.1); Sodium 138 mmol/L (136-145); Troponin I High Sensitivity 11.6 pg/mL (4.0-51.3)
--- NOTE | 2023-11-25 15:27 | CT_ITS ---
[address] [address] Patient Name: JHONATAN MONTOYA MRN: [id number] date: 1955 Sex: F Assigned Patient Location: ER Current Patient Location: ER Accession/Order Number: [id number] Exam Date: 11/25/2023 16:00 Report Date: 11/25/2023 17:05 At the request of: BUZZ GIBBONS Procedure: CT angio chest EXAMINATION: CT angio chest, , 11/25/2023 4:00 PM EST INDICATION: hypoxemia HISTORY: Ordering Provider Reason for Exam: hypoxemia Technologist Note: Additional: COMPARISON: Chest x-ray 04/11/2023. TECHNIQUE: CT angiography of the chest was performed with IV contrast. MIP (maximum intensity projection) images or 3D post processing was performed. CT dose reduction technique was used, including Automated Exposure Control. FINDINGS: PULMONARY ARTERIES: This is a limited examination for evaluation of pulmonary embolism due to breathing artifact as well as suboptimal contrast opacification of the pulmonary metastases. No definite abrupt cut off or significant filling defect is seen within the central pulmonary vessels to suggest central pulmonary arterial embolus. The pulmonary arteries are normal in caliber MEDIASTINUM: Trachea and central airways are patent. Thoracic aorta is normal course and caliber. Heart is normal in size without pericardial effusion. No mediastinal or hilar lymphadenopathy. PLEURAL CAVITY: No pneumothorax. No pleural effusion. LUNGS: Left lung base consolidation is seen. Small patchy and nodular infiltrates are also seen in the lungs bilaterally. CHEST WALL/AXILLA: No axillary lymphadenopathy VISUALIZED UPPER ABDOMEN: No acute findings. BONES: No destructive lesions. CT/CT angio chest IMPRESSION: Limited examination due to breathing artifact and poor contrast opacification of pulmonary arteries. No definite CT evidence for pulmonary embolism is seen in the central pulmonary arteries. Left lung base consolidation is seen. Small patchy and nodular infiltrates are also seen in the lungs bilaterally. Electronically authenticated by: ILIANA JONES Date: 11/25/2023 17:05
[2023-11-25 16:08] LABS: Adenovirus NOT DETECTED (NOT DETECTE); Bordetella parapertussis NOT DETECTED (NOT DETECTE); Coronavirus 229E NOT DETECTED (NOT DETECTE); Coronavirus HKU1 NOT DETECTED (NOT DETECTE); Coronavirus NL63 NOT DETECTED (NOT DETECTE); Coronavirus OC43 NOT DETECTED (NOT DETECTE); Human Metapneumovirus NOT DETECTED (NOT DETECTE); Human Rhinovirus/Enterovirus NOT DETECTED (NOT DETECTE); Influenza A NOT DETECTED (NOT DETECTE); Influenza B NOT DETECTED (NOT DETECTE); Lactate/Lactic Acid 2.4 mmol/L (0.4-2.0); Mycoplasma pneumoniae NOT DETECTED (NOT DETECTE); Parainfluenza Virus 1 NOT DETECTED (NOT DETECTE); Parainfluenza Virus 2 NOT DETECTED (NOT DETECTE); Parainfluenza Virus 3 NOT DETECTED (NOT DETECTE); Parainfluenza Virus 4 NOT DETECTED (NOT DETECTE); Respiratory Syncytial Virus NOT DETECTED (NOT DETECTE); SARS-CoV-2 NOT DETECTED (NOT DETECTE)
[2023-11-25] MEDS: LEVOFLOXACIN IN DEXTROSE 5 % 750 MG/150 ML IV.SOLN 100 MG IV (16:14)
--- OUTSIDE RECORDS SUMMARY | 2023-11-25 17:41 | XMS_ITS | CCD ---
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 Name Role Phone Steph Collier Attending Provider Unavailable Chantel Rainey Primary Care Provider Unavailabl e JoanaHerberth Attending Provider Unavailable Unavailable Primary Care Provider Unavailabl e UNKNOWN, PHYSICIAN Referring Unavailable JOO LINN Attending Unavailable JOO LINN Admitting Unavailable UNKNOWN, PHYSICIAN Primary Care Unavailable Rena Hurd Unavailable JoanaHerberth epps Unavailable Gato Domingo Unavailable [phone] Steph Collier Attending Provider [phone] MD Gato Domingo Attending Provider [phone] MD Nicky Ohara Primary Care Provider [phone] Gilma Trent Unavailable JOANA, HERBERTH Attending Unavailable [...] e FABIRD, SAUNDERS H Primary Care Unavailable [place], DR BRITTANY [employer] Unavailable DARWIN, DR [...] fentaNYL; Translations: [fentanyl] Drug Allergy 07-07-20 17 [facility] (2 sources) linezolid; Translations: [LINEZOLID] Drug Allergy 03-17-20 20 [facility] (20 sources) Vancomycin; Translations: [VANCOMYCIN] Drug Allergy 03-17-20 Unknown [facility] (11 sources) DENIES METAL SENSITITIVITY Propensity to adverse reactions Unknown [employer] Other Medications Current Medications Medication Drug Class(es) [...] each nostril Nasally Once a day Active Kicylusqwyc-Wxzukvwpk-Qz lanter (1 source) Star t: 02-0 2-20 23 Fvwjluqabzp-Cgpfjysjw-V ilanter (Trelegy Ellipta) 200-62.5-25 mcg blister with [...] 1 puff(s) by inhalation twice daily Ipratropium Roosevelt Active 2 PUFF Inhalation Twice daily July [...] 2017 10:21am take 1 capsule by mo [facility] every twelve hours Omeprazole 20 MG 1 [...] Active Start: 08-05-2022 take 1 tablet by [facility] twelve hours Potassium Chloride ER [...] Interpretation Reference Range Facility Follow-Upon 05-08-2023 Follow-Up [id number] Nell Champion 1955 F Date Provider Department Center 05/08/2023 271[facility]Y [facility] Family History Problem Relation Age of Onset Heart failure Mother Heart disease Father Family Status - Relation Status Age at Mother Father Level of Service:26739 [place] OFFICE/OUTPATIENT ESTABLISHED LOW MDM 20-29 MIN [facility] 05-03-2023 36 PATIENT CALLED TO CANCEL SURGERY FOR July D/T HER LUNG DISEASE. WILL CALL TO RESCHEDULE WHEN FULLY HEALED FROM LUNGS AND CLEARED//[facility] 04-19-2023 36 FYI CALLED PATIENT T O F/U ON MEDICAL AND PULMONARY CLEARANCES FOR R ELZA ON 05/19 AND PRE-OP RIYA'T 04/27 WITH US AND PATIENT IS CURRENTLY INPATIENT SINCE LAST WEEK D/T COVID AND PULMONARY ISSUES, SHE WILL CALL US ON 04/25 WITH PROGRESS, PLEASE ADVISE IF WE SHOULD CANCEL SURGERY FOR NOW..THANKS//[facility] SYMPTOMATIC COVID-19 ANTIGEN on 04-04-2023 EUA Statement SEE BELOW Normal [facility] Comment on above: Result Comment: This test [...] sooner. Performed By: #### C VDAGS #### [facility] [address] [place] [address] Dr. Shayne Roldan SARS-CoV-2 (COVID-19) RNA KAYLEE+probe Ql (Unsp spec) Positive Abnormal NEGATIVE [facility] Comment on above: Performed By: #### C VDAGS #### [facility] [address] [place], [place] [id number] Dr. Shayne Roldan XR LSPINE 2_3 VIEWSon [...] STEPH GRANADOS Date: 2023-03-24 12:52 Normal [facility] PTH INTACTon 02-27-2023 PTH, Intact 87 pg/mL Critically high 15-65 [facility] Comment on above: Performed By: #### P THINT #### [facility] [address] [place] [address] Dr. Shayne Roldan HEMOGRAM AND PLATELon 2022 Hematocrit (Bld) [Volume fraction] 44.4 % Normal 36.0-48.0 [facility] Comment on above: Performed By: #### H H #### [facility] [address] [place] [address] Dr. Shayne Roldan Hemoglobin (Bld) [Mass/Vol] 14.5 g/dL Normal 12.0-16.0 [facility] Comment on above: Performed By: #### H H #### [facility] [address] [place] [address] Dr. Shayne Roldan MCH (RBC) [Entitic mass] 30.3 pg Normal 26.7-34.0 [facility] Comment on above: Performed By: #### H H #### [facility] [address] [place] [address] Dr. Shayne Roldan MCHC (RBC) [Mass/Vol] 32.7 g/dL Normal 29.9-35.2 [facility] Comment on above: Performed By: #### H H #### [facility] [address] [address] [address] Shayne Roldan MCV (RBC) [Entitic vol] 92.9 fL Normal 81.0-99.0 [facility] Comment on above: Performed By: #### H H #### [facility] [address] [address] [address] Shayne Roldan PLT 367 103/ul Normal 150-450 [facility] Comment on above: Performed By: #### H H #### [facility] [address] [address] [address] Shayne Roldan RBC 4.78 106/ul Normal 4.20-5.40 [facility] Comment on above: Performed By: #### H H #### [facility] [address] [place] [address] Dr. Shayne Roldan WBC 9.9 103/ul Normal 4.0-11.0 [facility] Comment on above: Performed By: #### H H #### [facility] [address] [place] [address] Dr. Shayne Roldan MAGNESIUMon 02-25-2023 Magnesium [Mass/Vol] 1.6 mg/dL Critically low 1.8-2.4 [facility] Comment on above: Performed By: #### M G, RENAL, URIC #### [facility] [address] [place] [address] Dr. Shayne Roldan RENAL FUNCTION PANELon 02-25 Albumin [Mass/Vol] 3.4 g/dL Normal 3.4-5.0 [facility] Comment on above: Performed By: #### M G, RENAL, URIC #### [facility] [address] [place] [address] Dr. Shayne Roldan Calcium [Mass/Vol] 8.7 mg/dL Normal 8.5-10.1 [facility] Comment on above: Performed By: #### M G, RENAL, URIC #### [facility] [address] [place] [address] Dr. Shayne Roldan Chloride [Moles/Vol] 104 mmol/L Normal 98-107 [facility] Comment on above: Performed By: #### M G, RENAL, URIC #### [facility] [address] [address] [address] Shayne Roldan CO2 [Moles/Vol] 25.9 mmol/L Normal 21.0-32.0 [facility] Comment on above: Performed By: #### M G, RENAL, URIC #### [facility] [address] [address] [address] Shayne Roldan Creatinine [Mass/Vol] 1.19 mg/dL Critically high 0.55-1.02 [facility] Comment on above: Performed By: #### M G, RENAL, URIC #### [facility] [address] [place] [address] Dr. Shayne Roldan EGFR-AF [place] 55 mL/min/1.73m2 Critically low >=60 [facility] Comment on above: Performed By: #### M G, RENAL, URIC #### [facility] [address] [place] [address] Dr. Shayne Roldan EGFR-NON AF [place] 45 mL/min/1.73m2 Critically low >=60 [facility] Comment on above: Performed By: #### M G, RENAL, URIC #### [facility] [address] [place] [address] Dr. Shayne Roldan Glucose [Mass/Vol] 193 mg/dL Critically high 74-106 [facility] Comment on above: Performed By: #### M G, RENAL, URIC #### [facility] [address] [place] [address] Dr. Shayne Roldan Phosphate [Mass/Vol] 3.2 mg/dL Normal 2.6-4.7 [facility] Comment on above: Performed By: #### M G, RENAL, URIC #### [facility] [address] [place] [address] Dr. Shayne Roldan Potassium [Moles/Vol] 3.9 mmol/L Normal 3.5-5.1 [facility] Comment on above: Performed By: #### M G, RENAL, URIC #### [facility] [address] [place] [address] Dr. Shayne Roldan Sodium [Moles/Vol] 140 mmol/L Normal 136-145 [facility] [place] [facility] Comment on above: Performed By: #### M G, RENAL, URIC #### [facility] [address] [address] [address] Shayne Roldan Urea nitrogen [Mass/Vol] 17.0 mg/dL Normal 7.0-18.0 [facility] Comment on above: Performed By: #### M G, RENAL, URIC #### [facility] [address] [address] [address] Shayne Roldan UA RANDOM W/MICROSCOPICon BACTERIA TRACE Abnormal NONE SEEN [facility] Comment on above: Performed By: #### M G, RENAL, URIC #### [facility] [address] [place] [address] Dr. Shayne Roldan Bilirubin Ql (U) Negative Normal NEGATIVE [facility] Comment on above: Performed By: #### M G, RENAL, URIC #### [facility] [address] [address] [address] Shayne Roldan CAST NONE SEEN Normal NONE SEEN [facility] Comment on above: Performed By: #### M G, RENAL, URIC #### [facility] [address] [address] [address] Shayne Roldan Clarity (U) CLEAR Normal CLEAR [facility] Comment on above: Performed By: #### M G, RENAL, URIC #### [facility] [address] [address] [address] Shayne Roldan Color (U) LT. YELLOW Normal YELLOW [facility] Comment on above: Performed By: #### M G, RENAL, URIC #### [facility] [address] [address] [address] Shayne Roldan Crystals LM Nom (Urine sed) NONE SEEN Normal NONE SEEN [facility] Comment on above: Performed By: #### M G, RENAL, URIC #### [facility] [address] [address] [address] Shayne Roldan Epithelial cells LM Ql (Urine sed) RARE Normal NONE SEEN /RARE [facility] Comment on above: Performed By: #### M G, RENAL, URIC #### [facility] [address] [address] [address] Shayne Roldan Glucose Ql (U) Negative Normal NEGATIVE [facility] Comment on above: Performed By: #### M G, RENAL, URIC #### [facility] [address] [address] [address] Shayne Roldan Hemoglobin Ql (U) Negative Normal NEGATIVE [facility] Comment on above: Performed By: #### M G, RENAL, URIC #### [facility] [address] [address] [address] Shayne Roldan Ketones Ql (U) Negative Normal NEGATIVE [facility] Comment on above: Performed By: #### M G, RENAL, URIC #### [facility] [address] [address] [address] Shayne Roldan LEUKOCYTES Negative Normal NEGATIVE [facility] Comment on above: Performed By: #### M G, RENAL, URIC #### [facility] [address] [address] [address] Shayne Roldan MUCOUS NONE SEEN Normal NONE SEEN [facility] Comment on above: Performed By: #### M G, RENAL, URIC #### [facility] [address] [address] [address] Shayne Roldan Nitrite Ql (U) Negative Normal NEGATIVE [facility] Comment on above: Performed By: #### M G, RENAL, URIC #### [facility] [address] [address] [address] Shayne Roldan pH (U) 5.0 [pH] Normal 5-9 [facility] Comment on above: Performed By: #### M G, RENAL, URIC #### [facility] [address] [address] [address] Shayne Roldan RBC 0-2 Normal 0-2 [facility] Comment on above: Performed By: #### M G, RENAL, URIC #### [facility] [address] [address] [address] Shayne Roldan SPEC GRAVITY 1.025 Normal 1.005-<=1.025 [facility] Comment on above: Performed By: #### M G, RENAL, URIC #### [facility] [address] [address] [address] Shayne Roldan UA PROTEIN Negative Normal NEGATIVE/ TRACE [facility] Comment on above: Performed By: #### M G, RENAL, URIC #### [facility] [address] [address] [address] Shayne Roldan Urobilinogen Qn (U) 0.2 {Rogelio'U}/dL Normal 0.2 - 1. 0 [facility] Comment on above: Performed By: #### M G, RENAL, URIC #### [facility] [address] [place] [address] Dr. Shayne Roldan WBC 0-2 Abnormal NONE SEEN [facility] Comment on above: Performed By: #### M G, RENAL, URIC #### [facility] [address] [place] [address] Dr. Shayne Roldan URIC ACID SERUMon 02-25-2023 Urate [Mass/Vol] 6.1 mg/dL Critically high 2.6-6.0 [facility] Comment on above: Performed By: #### M G, RENAL, URIC #### [facility] [address] [address] [address] Shayne Roldan URINE T PROTEIN CREAT RATIOo n 02-25-2023 Protein (U) [Mass/Vol] 13.0 mg/dL Critically high <=12.0 [facility] Comment on above: Performed By: #### M G, RENAL, URIC #### [facility] [address] [place] [address] Dr. Shayne Roldan UR PROT CREAT RAT 0.16 Normal [facility] Comment on above: Performed By: #### M G, RENAL, URIC #### [facility] [address] [place] [address] Dr. Shayne Roldan URINE CREAT 83.60 mg/dL Normal 20.00-300.00 [facility] Comment on above: Performed By: #### M G, RENAL, URIC #### [facility] [address] [place], [place] [address] Dr. Shayne Roldan VITAMIN D 25 OHon 02-25-2023 VIT D 25-OH 41.6 ng/mL Normal [facility] Comment on above: Performed By: #### M G, RENAL, URIC #### [facility] [address] [place], [place] [address] Dr. Shayne Roldan VIT D RANGES SEE BELOW Normal [facility] Comment on above: Result Comment: <20 ng/mL Vit D deficient 20 - <30 ng/mL Vit D insufficient 30 - 100 ng/mL Vit D sufficient >100 ng/mL Potential Toxicity Performed By: #### M G, RENAL, URIC #### [facility] [address] [place], [place] [address] Dr. Shayne Roldan XR CHEST 2 Von [...] BRITTANY GALDAMEZ Date: 2023-02-22 16:15 Normal [facility] MAMM SCREEN 3D PRATEEK CADon 12-15-2022 MAMM SCREEN 3D PRATEEK CAD Patient: DIANA CHAMPION Exam Date: 12/15/2022 : 1955 Gender:F Ordering : DR JACK HALL . Admission #: [id number] Family : Order #: [id number] CLICK HERE TO VIEW EXAM RADIOLOGY REPORT PROCEDURE: MAMMOGRAM SCREENING 3D BILATERAL CAD COMPARISON: MG MAMM SCREEN 3D PRATEEK CAD, 11/26/2021. INDICATIONS: Calculator Name NCI Breast Cancer Risk Assessment Tool 5 Year Breast Cancer Risk 1.20% Lifetime Breast Cancer Risk 4.40% Personal Breast Cancer No Personal Ovarian Cancer No Treatments Excision, radiation, chemotherapy Family Cancers None LOCATION: [facility] BREAST COMPOSITION: Almost entirely fatty. FINDINGS: DIAGNOSTIC [...] Walters MD on 12/15/2022 at 10:51 Normal [facility] XR DEXA BONE DENSITYon 12-15 [...] by: STEPH GRANADOS Date: 2022-12-15 09:50 Normal [facility] Fran 12-08-2022 L - -------- Specimen: [id number] Received: 12/08/22 Status: CELIA Eliza Num: [id number] Spec Type: Surgical Subm Dr: Gato Domingo MD Tissues: A Colon Biopsy (DESC COL POLYP) Procedures: HE/2, Gross/Micro L4 -------- Age/ Patient Sex Location Account Attending Physician -------- Diana Champion 67/F [id number] Gato Domingo MD -------- SPEC NUM: [id number] RECD: 12/08/22 STATUS: CELIA MARTIN NUM: [id number] KENDRA: 12/08/[address] [facility] [address]: Gato Domingo MD ENTERED: 12/08/22-1007 [facility] DR: KHRIS TYPE: Surgical DEPT: S ENTERED BY: [id number] RECV BY: [id number] ORDERED: HE/2, Gross/Micro L4 ORDERED: HE/2, Gross/Micro [...] support the above pathologic diagnosis. CPT Codes 23627 -------- -------- Specimen: [id number] Received: 12/08/22 Status: CELIA Eliza Num: [id number] Spec Type: Surgical Subm Dr: Gato Domingo MD Tissues: A Colon Biopsy (DESC COL POLYP) Procedures: FLORENCIA/Shagufta Douglass/Micro L4 -------- Patient: Diana Champion [id number] (Continued) -------- Signed (signature on file) Eunice Rosa MD 12/09/22 1053 [facility] PAP ACOG PANEL 2: 30 to 65on 11-16-2022 . . Normal [facility] Comment on above: Performed By: #### 4 [id number] #### [facility] [address] [address] [address] Shayne Roldan Age Gdln ACOG Testing Comment [facility] Comment on above: Result Comment: <21 or >65 or no age provided Performed By: #### [id number] #### [facility] [address] [address] [address] Shayne Roldan DIAGNOSIS: Comment [facility] Comment on above: Result Comment: NEGA TIVE FOR INTRAEPITHELIAL LESION OR MALIGNANCY. Performed By: #### 4 [id number] #### [facility] [address] [place] [address] Dr. Shayne Roldan Methodology: Comment [facility] Comment on above: Result Comment: This liquid based ThinPrep(R) pap test was screened with the use of an image guided system. Performed By: #### 4 [id number] #### [facility] [address] [place] [address] Dr. Shayne Roldan Note: Comment [facility] Comment on above: Result Comment: The Pap smear is a screening test designed to aid in the detection of premalignant and malignant conditions of the uterine cervix. It is not a diagnostic procedure and should not be used as the sole means of detecting cervical cancer. Both false-positive and false-negative reports do occur. . Performed By: #### 4 [id number] #### [facility] [address] [place] [address] Dr. Shayne Roldan Performed by: Comment Normal [facility] Comment on above: Result Comment: Onur Aguilar Family Service Counselor (ASCP) Performed By: #### 4 [id number] #### [facility] [address] [place] [address] Dr. Shayne Roldan Specimen adequacy: Comment [facility] Comment on above: Result Comment: Sati sfactory for evaluation. Endocervical and/or squamous metaplastic cells (endocervical component) are present. Performed By: #### 4 [id number] #### [facility] [address] [place] [address] Dr. Shayne Roldan RENAL FUNCTION PANELon 08-19 Albumin [Mass/Vol] 3.4 g/dL Normal 3.4-5.0 [facility] Comment on above: Performed By: #### M G, RENAL, URIC #### [facility] [address] [address] [address] Shayne Roldan Calcium [Mass/Vol] 8.4 mg/dL Critically low 8.5-10.1 Th [facility] Comment on above: Performed By: #### M G, RENAL, URIC #### [facility] [address] [address] [address] Shayne Roldan Chloride [Moles/Vol] 103 mmol/L Normal 98-107 [facility] Comment on above: Performed By: #### M G, RENAL, URIC #### [facility] [address] [place] [address] Dr. Shayne Roldan CO2 [Moles/Vol] 27.8 mmol/L Normal 21.0-32.0 [facility] Comment on above: Performed By: #### M G, RENAL, URIC #### [facility] [address] [address] [address] Shayne Roldan Creatinine [Mass/Vol] 1.02 mg/dL Normal 0.55-1.02 [facility] Comment on above: Performed By: #### M G, RENAL, URIC #### [facility] [address] [address] [address] Shayne Roldan EGFR-AF [place] >60 Normal >=60 [facility] Comment on above: Performed By: #### M G, RENAL, URIC #### [facility] [address] [address] [address] Shayne Roldan EGFR-NON AF [place] 54 mL/min/1.73m2 Critically low >=60 [facility] Comment on above: Performed By: #### M G, RENAL, URIC #### [facility] [address] [address] [address] Shayne Roldan Glucose [Mass/Vol] 110 mg/dL Critically high 74-106 T [facility] Comment on above: Performed By: #### M G, RENAL, URIC #### [facility] [address] [place] [address] Dr. Shayne Roldan Phosphate [Mass/Vol] 2.3 mg/dL Critically low 2.6-4.7 [facility] Comment on above: Performed By: #### M G, RENAL, URIC #### [facility] [address] [place] [address] Dr. Shayne Roldan Potassium [Moles/Vol] 3.2 mmol/L Critically low 3.5-5.1 [facility] Comment on above: Performed By: #### M G, RENAL, URIC #### [facility] [address] [place] [address] Dr. Shayne Roldan Sodium [Moles/Vol] 138 mmol/L Normal 136-145 [facility] Comment on above: Performed By: #### M G, RENAL, URIC #### [facility] [address] [place] [address] Dr. Shayne Roldan Urea nitrogen [Mass/Vol] 14.0 mg/dL Normal 7.0-18.0 [facility] Comment on above: Performed By: #### M G, RENAL, URIC #### [facility] [address] [place] [address] Dr. Shayne Roldan PTH INTACTon 08-06-2022 PTH, Intact 40 pg/mL Normal 15-65 [facility] Comment on above: Performed By: #### M G, RENAL, URIC #### [facility] [address] [place] [address] Dr. Shayne Roldan HEMOGRAM AND PLATELon 2021 Hematocrit (Bld) [Volume fraction] 39.8 % Normal 36.0-48.0 [facility] Comment on above: Performed By: #### M G, RENAL, URIC #### [facility] [address] [place] [address] Dr. Shayne Roldan Hemoglobin (Bld) [Mass/Vol] 13.4 g/dL Normal 12.0-16.0 [facility] Comment on above: Performed By: #### M G, RENAL, URIC #### [facility] [address] [address] [address] Shayne Roldan MCH (RBC) [Entitic mass] 30.5 pg Normal 26.7-34.0 [facility] Comment on above: Performed By: #### M G, RENAL, URIC #### [facility] [address] [place] [address] Dr. Shayne Roldan MCHC (RBC) [Mass/Vol] 33.7 g/dL Normal 29.9-35.2 [facility] Comment on above: Performed By: #### M G, RENAL, URIC #### [facility] [address] [place] [address] Dr. Shayne Roldan MCV (RBC) [Entitic vol] 90.5 fL Normal 81.0-99.0 [facility] Comment on above: Performed By: #### M G, RENAL, URIC #### [facility] [address] [place] [address] Dr. Shayne Roldan PLT 299 103/ul Normal 150-450 [facility] Comment on above: Performed By: #### M G, RENAL, URIC #### [facility] [address] [place] [address] Dr. Shayne Roldan RBC 4.40 106/ul Normal 4.20-5.40 [facility] Comment on above: Performed By: #### M G, RENAL, URIC #### [facility] [address] [place] [address] Dr. Shayne Roldan WBC 8.8 103/ul Normal 4.0-11.0 [facility] Comment on above: Performed By: #### M G, RENAL, URIC #### [facility] [address] [place] [address] Dr. Shayne Roldan MAGNESIUMon 08-05-2022 Magnesium [Mass/Vol] 1.5 mg/dL Critically low 1.8-2.4 [facility] Comment on above: Performed By: #### M G, RENAL, URIC #### [facility] [address] [place] [address] Dr. Shayne Roldan RENAL FUNCTION PANELon 08-05 Albumin [Mass/Vol] 3.5 g/dL Normal 3.4-5.0 [facility] Comment on above: Performed By: #### M G, RENAL, URIC #### [facility] [address] [address] [address] Shayne Roldan Calcium [Mass/Vol] 8.4 mg/dL Critically low 8.5-10.1 [facility] Comment on above: Performed By: #### M G, RENAL, URIC #### [facility] [address] [address] [address] Shayne Roldan Chloride [Moles/Vol] 101 mmol/L Normal 98-107 [facility] Comment on above: Performed By: #### M G, RENAL, URIC #### [facility] [address] [place] [address] Dr. Shayne Roldan CO2 [Moles/Vol] 29.5 mmol/L Normal 21.0-32.0 [facility] Comment on above: Performed By: #### M G, RENAL, URIC #### [facility] [address] [place] [address] Dr. Shayne Roldan Creatinine [Mass/Vol] 1.04 mg/dL Critically high 0.55-1.02 [facility] Comment on above: Performed By: #### M G, RENAL, URIC #### [facility] [address] [place] [address] Dr. Shayne Roldan EGFR-AF [place] >60 Normal >=60 [facility] Comment on above: Performed By: #### M G, RENAL, URIC #### [facility] [address] [place] [address] Dr. Shayne Roldan EGFR-NON AF [place] 53 mL/min/1.73m2 Critically low >=60 [facility] Comment on above: Performed By: #### M G, RENAL, URIC #### [facility] [address] [place] [address] Dr. Shayne Roldan Glucose [Mass/Vol] 92 mg/dL Normal 74-106 [facility] Comment on above: Performed By: #### M G, RENAL, URIC #### [facility] [address] [place], [place] [id number] Dr. Shayne Roldan Phosphate [Mass/Vol] 2.4 mg/dL Critically low 2.6-4.7 [facility] Comment on above: Performed By: #### M G, RENAL, URIC #### [facility] [address] [place] [address] Dr. Shayne Roldan Potassium [Moles/Vol] 2.8 mmol/L Critically low 3.5-5.1 [facility] Comment on above: Performed By: #### M G, RENAL, URIC #### [facility] [address] [place] [address] Dr. Shayne Roldan Sodium [Moles/Vol] 137 mmol/L Normal 136-145 [facility] Comment on above: Performed By: #### M G, RENAL, URIC #### [facility] [address] [place] [address] Dr. Shayne Roldan Urea nitrogen [Mass/Vol] 10.0 mg/dL Normal 7.0-18.0 [facility] Comment on above: Performed By: #### M G, RENAL, URIC #### [facility] [address] [place] [address] Dr. Shayne Roldan UA RANDOM W/MICROSCOPICon BACTERIA SMALL Abnormal NONE SEEN [facility] Comment on above: Performed By: #### U AMIC #### [facility] [address] [place] [address] Dr. Shayne Roldan Bilirubin Ql (U) Negative Normal NEGATIVE [facility] Comment on above: Performed By: #### U AMIC #### [facility] [address] [place] [address] Dr. Shayne Roldan CAST NONE SEEN Normal NONE SEEN [facility] Comment on above: Performed By: #### U AMIC #### [facility] [address] [place] [address] Dr. Shayne Roldan Clarity (U) CLEAR Normal CLEAR [facility] Comment on above: Performed By: #### U AMIC #### [facility] [address] [place] [address] Dr. Shayne Rlodan Color (U) LT. YELLOW Normal YELLOW [facility] Comment on above: Performed By: #### U AMIC #### [facility] [address] [address] [address] Shayne Roldan Crystals LM Nom (Urine sed) NONE SEEN Normal NONE SEEN [facility] Comment on above: Performed By: #### U AMIC #### [facility] [address] [address] [address] Shayne Roldan Epithelial cells LM Ql (Urine sed) FEW Abnormal NONE SEEN /RARE [facility] Comment on above: Performed By: #### U AMIC #### [facility] [address] [address] [address] Shayne Roldan Glucose Ql (U) Negative Normal NEGATIVE The [facility] Comment on above: Performed By: #### U AMIC #### [facility] [address] [address] [address] Shayne Roldan Hemoglobin Ql (U) Negative Normal NEGATIVE [facility] Comment on above: Performed By: #### U AMIC #### [facility] [address] [address] [address] Shayne Roldan Ketones Ql (U) Negative Normal NEGATIVE The [facility] Comment on above: Performed By: #### U AMIC #### [facility] [address] [address] [address] Shayne Roldan LEUKOCYTES TRACE Abnormal NEGATIVE [facility] Comment on above: Performed By: #### U AMIC #### [facility] [address] [address] [address] Shayne Roldan MUCOUS NONE SEEN Normal NONE SEEN [facility] Comment on above: Performed By: #### U AMIC #### [facility] [address] [address] [address] Shayne Roldan Nitrite Ql (U) Negative Normal NEGATIVE The [facility] Comment on above: Performed By: #### U AMIC #### [facility] [address] [address] [address] Shayne Roldan pH (U) 6.0 [pH] Normal 5-9 [facility] Comment on above: Performed By: #### U AMIC #### [facility] [address] [place] [address] Dr. Shayne Roldan RBC NONE SEEN Abnormal 0-2 [facility] Comment on above: Performed By: #### U AMIC #### [facility] [address] [place] [address] Dr. Shayne Roldan SPEC GRAVITY <=1.005 Abnormal 1.005-<=1.025 [facility] Comment on above: Performed By: #### U AMIC #### [facility] [address] [place] [address] Dr. Shayne Roldan UA PROTEIN Negative Normal NEGATIVE/ TRACE [facility] Comment on above: Performed By: #### U AMIC #### [facility] [address] [place] [address] Dr. Shayne Roldan Urobilinogen Qn (U) 0.2 {Rogelio'U}/dL Normal 0.2 - 1. 0 [facility] Comment on above: Performed By: #### U AMIC #### [facility] [address] [place] [address] Dr. Shayne Roldan WBC 5-10 Abnormal NONE SEEN [facility] Comment on above: Performed By: #### U AMIC #### [facility] [address] [place] [address] Dr. Shayne Roldan URIC ACID SERUMon 08-05-2022 Urate [Mass/Vol] 6.5 mg/dL Critically high 2.6-6.0 [facility] Comment on above: Performed By: #### M G, RENAL, URIC #### [facility] [address] [place] [address] Dr. Shayne Roldan URINE T PROTEIN CREAT RATIOo n 08-05-2022 Protein (U) [Mass/Vol] 4.8 mg/dL Normal <=12.0 [facility] Comment on above: Performed By: #### U RTPCR #### [facility] [address] [place] [address] Dr. Shayne Roldan UR PROT CREAT RAT 0.09 Normal [facility] Comment on above: Performed By: #### U RTPCR #### [facility] [address] [address] [address] Shayne Roldan URINE CREAT 52.65 mg/dL Normal 20.00-300.00 [facility] Comment on above: Performed By: #### U RTPCR #### [facility] [address] [address] [address] Shayne Roldan VITAMIN D 25 OHon 08-05-2022 VIT D 25-OH 38.9 ng/mL Normal [facility] Comment on above: Performed By: #### M G, RENAL, URIC #### [facility] [address] [address] [address] Shayne Roldan VIT D RANGES SEE BELOW Normal [facility] Comment on above: Result Comment: <20 ng/mL Vit D deficient 20 - <30 ng/mL Vit D insufficient 30 - 100 ng/mL Vit D sufficient >100 ng/mL Potential Toxicity Performed By: #### M G, RENAL, URIC #### [facility] [address] [place] [address] Dr. Shayne Roldan IMMUNOGLOBULINS IGA/IGM/IGG/ IGE QUANTITAon 07-12-2022 Immunoglobulin A, Qn, Serum 295 mg/dL Normal 87-352 [facility] Comment on above: Result Comment: Perf ormed at: CB Performed By: #### M G, RENAL, URIC #### [facility] [address] [place] [address] Dr. Shayne Roldan Immunoglobulin E, Total 32 IU/mL Normal 6-495 [facility] Comment on above: Result Comment: Perf ormed at: BN Performed By: #### M G, RENAL, URIC #### [facility] [address] [address] [address] Shayne Roldan Immunoglobulin G, Qn, Serum 729 mg/dL Normal 586-1602 [facility] Comment on above: Result Comment: Perf ormed at: CB Performed By: #### M G, RENAL, URIC #### [facility] [address] [place] [address] Dr. Shayne Roldan Immunoglobulin M, Qn, Serum 75 mg/dL Normal 26-217 [facility] Comment on above: Result Comment: Perf ormed at: CB Performed By: #### M G, RENAL, URIC #### [facility] [address] [address] [address] Shayne Roldan Abstracton 07-08-2022 Abstract [id number] Nell Champion 1955 F Date Provider Department Center 07/08/2022 JOHANNA MEDINA [facility] Family History Problem Relation Age of Onset Heart failure Mother Heart disease Father Family Status - Relation Status Age at Mother Father Normal [facility] CBC AUTO DIFFon 07-05-2022 BASO # 0.1 103/ul Normal 0.0-0.1 [facility] Comment on above: Performed By: #### M G, RENAL, URIC #### [facility] [address] [place] [address] Dr. Shayne Roldan Basophils/100 WBC (Bld) 0.7 % Normal 0.2-2.0 [facility] Comment on above: Performed By: #### M G, RENAL, URIC #### [facility] [address] [address] [address] Shayne Roldan EO # 0.4 103/ul Normal 0.0-0.7 [facility] Comment on above: Performed By: #### M G, RENAL, URIC #### [facility] [address] [address] [address] Shayne Roldan Eosinophils/100 WBC (Bld) 4.4 % Normal 0.9-7.0 [facility] Comment on above: Performed By: #### M G, RENAL, URIC #### [facility] [address] [address] [address] Shayne Roldan Erythrocyte distribution width (RBC) [Ratio] 12.6 % Normal 11.0-15.0 [facility] Comment on above: Performed By: #### M G, RENAL, URIC #### [facility] [address] [place] [address] Dr. Shayne Roldan Hematocrit (Bld) [Volume fraction] 40.2 % Normal 36.0-48.0 [facility] Comment on above: Performed By: #### M G, RENAL, URIC #### [facility] [address] [address] [address] Shayne Roldan Hemoglobin (Bld) [Mass/Vol] 13.6 g/dL Normal 12.0-16.0 [facility] Comment on above: Performed By: #### M G, RENAL, URIC #### [facility] [address] [place] [address] Dr. Shayne Roldan IG # 0.07 10e3/ul Critically high 0.00-0.03 [facility] Comment on above: Performed By: #### M G, RENAL, URIC #### [facility] [address] [place] [address] Dr. Shayne Roldan IG % 0.8 % Critically high 0.0-0.5 [facility] Comment on above: Performed By: #### M G, RENAL, URIC #### [facility] [address] [place] [address] Dr. Shayne Roldan LYMPH # 2.3 103/ul Normal 1.2-3.8 [facility] Comment on above: Performed By: #### M G, RENAL, URIC #### [facility] [address] [place] [address] Dr. Shayne Roldan Lymphocytes/100 WBC (Bld) 24.7 % Normal 20.5-60.0 [facility] Comment on above: Performed By: #### M G, RENAL, URIC #### [facility] [address] [place] [address] Dr. Shayne Roldan MANUAL DIFF REQ NO Normal [facility] Comment on above: Performed By: #### M G, RENAL, URIC #### [facility] [address] [place] [address] Dr. Shayne Roldan MCH (RBC) [Entitic mass] 30.7 pg Normal 26.7-34.0 [facility] Comment on above: Performed By: #### M G, RENAL, URIC #### [facility] [address] [place] [address] Dr. Shayne Roldan MCHC (RBC) [Mass/Vol] 33.8 g/dL Normal 29.9-35.2 [facility] Comment on above: Performed By: #### M G, RENAL, URIC #### [facility] [address] [place] [address] Dr. Shayne Roldan MCV (RBC) [Entitic vol] 90.7 fL Normal 81.0-99.0 [facility] Comment on above: Performed By: #### M G, RENAL, URIC #### [facility] [address] [place] [address] Dr. Shayne Roldan MONO # 0.7 103/ul Normal 0.3-0.8 [facility] Comment on above: Performed By: #### M G, RENAL, URIC #### [facility] [address] [place] [address] Dr. Shayne Roldan Monocytes/100 WBC (Bld) 7.7 % Normal 1.7-12.0 [facility] Comment on above: Performed By: #### M G, RENAL, URIC #### [facility] [address] [place] [address] Dr. Shayne Roldan NEUT # 5.7 103/ul Normal 1.4-6.5 [facility] Comment on above: Performed By: #### M G, RENAL, URIC #### [facility] [address] [place] [address] Dr. Shayne Roldan Neutrophils/100 WBC (Bld) 61.7 % Normal 43.0-75.0 [facility] Comment on above: Performed By: #### M G, RENAL, URIC #### [facility] [address] [place] [address] Dr. Shayne Roldan Platelet mean volume (Bld) [Entitic vol] 8.8 fL Critically low 9.5-13.5 [facility] Comment on above: Performed By: #### M G, RENAL, URIC #### [facility] [address] [place] [address] Dr. Shayne Roldan PLT 279 103/ul Normal 150-450 [facility] Comment on above: Performed By: #### M G, RENAL, URIC #### [facility] [address] [place] [address] Dr. Shayne Roldan RBC 4.43 106/ul Normal 4.20-5.40 [facility] Comment on above: Performed By: #### M G, RENAL, URIC #### [facility] [address] [place] [address] Dr. Shayne Roldan WBC 9.1 103/ul Normal 4.0-11.0 [facility] Comment on above: Performed By: #### M G, RENAL, URIC #### [facility] [address] [place] [address] Dr. Shayne Roldan Covid-19 PCR ([facility])on SARS-CoV-2 (COVID-19) RNA KAYLEE+probe Ql (Unsp spec) Not detected Normal NOT DETECTED [facility] Comment on above: Result Comment: This test is not yet approved or cleared by the [place] FDA. When there are no FDA-approved or cleared tests available, and other criteria are met, FDA can make tests available under an emergency access mechanism called an Emergency Use Authorization (EUA). The EUA for this test is supported by the Surgical Services Coordinator of Health and Human Service's (HHS's) declaration [...] By: #### M G, RENAL, URIC #### [facility] [address] [place] [address] Dr. Shayne Roldan XR CHEST 2 Von [...] NARDA LONDONO Date: 2022-06-08 19:58 Normal [facility] Covid-19 PCR ([facility])on SARS-CoV-2 (COVID-19) RNA KAYLEE+probe Ql (Unsp spec) Not detected Normal NOT DETECTED [facility] Comment on above: Result Comment: This test is not yet approved or cleared by the [place] FDA. When there are no FDA-approved or cleared tests available, and other criteria are met, FDA can make tests available under an emergency access mechanism called an Emergency Use Authorization (EUA). The EUA for this test is supported by the Surgical Services Coordinator of Health and Human Service's (HHS's) declaration [...] consistent with SARS-CoV-2. Performed By: #### [facility] #### [facility] [address] [place] [address] Dr. Shayne Roldan DEXA AXIAL 03-01-2022 DEXA AXIAL [facility] Department of Radiology [address] [place] [id number] Patient Name: DIANA CHAMPION : 1955 [...] characteristics. Electronically signed: Luzma Fernandez. Transcribed by: [email or web address], User Resident: Electronically Signed by: LUZMA FERNANDEZ @ 03/02/2022 01:07 PM Normal [facility] SCOLIOSIS 2 VWSon 02-24-2022 SCOLIOSIS 2 [facility] Department of Radiology [address] [place] [id number] Patient Name: DIANA CHAMPION : 1955 Sex: F Age: Race: White Pt. Location: Patient Status: D Ordered Date: 02/24/2022 1:25:00 PM Completed Date: 02/24/2022 01:44 PM Requesting Provider: CINDA ANTONIO Attending Provider: Report Copy To: Signs & Symptoms: M43.10 Spondylolisthesis, site unspecified I10 History: Comments: Views (X-RAY, SCOLIOSIS): PA, Lateral evaluate Exam: SCOLIOSIS 2 [facility] Scoliosis. Worsening pain. Frontal and lateral thoracolumbar spine IMPRESSION: 1. Diffuse disc disease and facet arthritis. Right convex mid lumbar curvature measuring 16 degrees. Interbody fusion hardware lower lumbar spine. Electronically signed: Hugo Lynn. Transcribed by: Tanesha, User Resident: Electronically Signed by: HUGO LYNN @ 02/26/2022 11:07 AM Normal [facility] Comment on above: Order Comment: Views (X-RAY, SCOLIOSIS): PA, Lateral evaluate CT LUMBAR SPINE W CONTRASTon 01-24-2022 CT LUMBAR SPINE W CONTRAST [facility] Department of Radiology [address] [place] [id number] Patient Name: DIANA CHAMPION : 1955 Sex: F Age: Race: White Pt. Location: Patient Status: D Ordered Date: 01/09/2022 9:00:00 AM Completed Date: 01/24/2022 03:26 PM Requesting Provider: JOO LINN Attending Provider: JOO LINN Report Copy To: UNKNOWN, PHYSICIAN Signs & Symptoms: M54.16 Radiculopathy, lumbar region I10 History: [place] Comments: , CT MYELOGRAM>PAPER WORK IN CHART [...] L1-2. Electronically signed: Gaurang Lawrence. Transcribed by: [email or web address], User Resident: Electronically Signed by: GAURANG LAWRENCE @ 01/26/2022 08:58 AM Normal [facility] Comment on above: Order Comment: , CT MYELOGRAM>PAPER WORK IN CHART LUMBAR MYELOGRAMon 2 LUMBAR MYELOGRAM [facility] Department of Radiology [address] [place] [phone] Patient Name: DIANA HCAMPION : 1955 Sex: F Age: Race: White Pt. Location: Patient Status: O Ordered Date: 01/09/2022 9:00:00 AM Completed Date: 01/24/2022 02:37 PM Requesting Provider: JOO LINN Attending Provider: JOO LINN Report Copy To: UNKNOWN, PHYSICIAN Signs & Symptoms: M54.16 Radiculopathy, lumbar region I10 History: [place] Is patient on thinners? 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 Consent was obtained. Timeout: [place] protocol timeout verification performed. PROCEDURE: Estimated blood [...] report. Electronically signed: Greg Marlow. Transcribed by: [email or web address], User Resident: DEBBIE JI Electronically Signed by: GREG MARLOW @ 01/24/2022 04:07 PM I personally read this/these film(s) with this resident Normal [facility] Comment on above: Order Comment: , CT MYELOGRAM> PAPER WORK SCANNED IN CHART , CT MYELOGRAM> PAPER WORK SCANNED IN CHART , , , Ordering Provider - JOO LINN MD , HIP LEFT 1 OR 2 VWS WITH PEL VISon 01-06-2022 HIP LEFT 1 OR 2 VWS WITH PELVIS [facility] Department of Radiology [address] [place] [phone] Patient Name: DIANA CHAMPION : 1955 [...] hardware. Electronically signed: Joe Matthew. Transcribed by: [email or web address], User Resident: Electronically Signed by: JOE MATTHEW @ 01/09/2022 04:45 PM Normal [facility] Comment on above: Order Comment: Evalu ate Vital Signs Date Time Vital Sign Value Performing Clinician Facility 08-17-2023 09:20-0400 Body height 165.1 cm Herberth Joana Other [facility] Other 08-17-2023 09:20-0400 Body mass index (BMI) [Ratio] 38.1 kg/m2 Herberth Joana Other [facility] Other 08-17-2023 09:20-0400 Body temperature 98.8 [degF] Herberth Joana Other [facility] Other 08-17-2023 09:20-0400 Body weight 103.87 kg Herberth Joana Other [facility] Other 08-17-2023 09:20-0400 Diastolic blood pressure 85 mm[Hg] Herberth Joana Other [facility] Other 08-17-2023 09:20-0400 Respiratory rate 18 /min Herberth Joana Other [facility] Other 08-17-2023 09:20-0400 SaO2% (BldA) [Mass fraction] 94 % Herberth Joana Other [facility] Other 08-17-2023 09:20-0400 Systolic blood pressure 151 mm[Hg] Herberth Joana Other [facility] Other 03-02-2023 10:00-0400 Body height 165.1 cm Herberth Joana Other [facility] Other 03-02-2023 10:00-0400 Body mass index (BMI) [Ratio] 37.29 kg/m2 Herberth Joana Other [facility] Other 03-02-2023 10:00-0400 Body temperature 98.9 [degF] Herberth Joana Other [facility] Other 03-02-2023 10:00-0400 Body weight 101.65 kg Herberth Joana Other [facility] Other 03-02-2023 10:00-0400 Diastolic blood pressure 76 mm[Hg] Herberth Joana Other [facility] Other 03-02-2023 10:00-0400 Respiratory rate 20 /min Herberth Joana Other [facility] Other 03-02-2023 10:00-0400 SaO2% (BldA) [Mass fraction] 96 % Herberth Joana Other [facility] Other 03-02-2023 10:00-0400 Systolic blood pressure 136 mm[Hg] Herberth Joana Other [facility] [facility] [employer] Other 12-08-2022 09:30-0500 Diastolic blood pressure 59 mm[Hg] MD Shaikh Ohara Work Phone: [facility] 12-08-2022 09:30-0500 Heart rate 55 /min MD Shaikh Ohara Work Phone: [facility] 12-08-2022 09:30-0500 Respiratory rate 16 /min MD Shaikh Ohara Work Phone: [facility] 12-08-2022 09:30-0500 SaO2% (BldA) [Mass fraction] 96 % MD Shaikh Ohara Work Phone: [facility] 12-08-2022 09:30-0500 Systolic blood pressure 112 mm[Hg] MD Shaikh Ohara Work Phone: [facility] 12-08-2022 06:54-0500 Body height 162.56 cm MD Shaikh Ohara Work Phone: [facility] 12-08-2022 06:54-0500 Body temperature 98.2 [degF] MD Shaikh Ohara Work Phone: [facility] 12-08-2022 06:54-0500 Body weight 104.32 kg MD Shaikh Ohara Work Phone: [facility] 08-09-2022 11:00-0400 Body height 165.1 cm Herberth Joana Other [facility] [employer] Other 08-09-2022 11:00-0400 Body mass index (BMI) [Ratio] 37.87 kg/m2 Herberth Joana Other [facility] Other 08-09-2022 11:00-0400 Body temperature 97.2 [degF] Herberth Joana Other [facility] Other 08-09-2022 11:00-0400 Body weight 103.24 kg Herberth Joana Other [facility] Other 08-09-2022 11:00-0400 Diastolic blood pressure 88 mm[Hg] Herberth Joana Other [facility] Other 08-09-2022 11:00-0400 Respiratory rate 20 /min Herberth Joana Other [facility] Other 08-09-2022 11:00-0400 SaO2% (BldA) [Mass fraction] 95 % Herberth Joana Other [facility] Other 08-09-2022 11:00-0400 Systolic blood pressure 133 mm[Hg] Herberth Joana Other [facility] Other 11-17-2021 10:40-0500 Body height 165.1 cm Herberth Joana Other [facility] Other 11-17-2021 10:40-0500 Body mass index (BMI) [Ratio] 37.97 kg/m2 Herberth Joana Other [facility] Other 11-17-2021 10:40-0500 Body temperature 97.8 [degF] Herberth Joana Other [facility] Other 11-17-2021 10:40-0500 Body weight 103.51 kg Herberth Joana Other [facility] Other 11-17-2021 10:40-0500 Diastolic blood pressure 70 mm[Hg] Herberth Joana Other [facility] Other 11-17-2021 10:40-0500 Respiratory rate 18 /min Herberth Joana Other [facility] Other 11-17-2021 10:40-0500 SaO2% (BldA) [Mass fraction] 94 % Herberth Joana Other [facility] Other 11-17-2021 10:40-0500 Systolic blood pressure 130 mm[Hg] Herberth Joana Other [facility] [employer] Other 08-30-2021 13:15-0400 Body height 165.1 cm Rena Ginty Other [facility] Other 08-30-2021 13:15-0400 Body mass index (BMI) [Ratio] 36.61 kg/m2 Rena Ginty Other [facility] Other 08-30-2021 13:15-0400 Body temperature 98.7 [degF] Rena Ginty Other [facility] Other 08-30-2021 13:15-0400 Body weight 99.79 kg Rena Ginty Other [facility] Other 08-30-2021 13:15-0400 SaO2% (BldA) [Mass fraction] 90 % Rena Ginty Other [employer] [employer] Other Encounters Encounter Date Encounter Type Care Provider Facility Start: 11-02-2023 End: 11-02-2023 ambulatory SAUNDERS FAWWAD Not Available Start: 10-09-2023 End: 10-10-2023 ambulatory Jayshree Vargas MD Facility:[facility] Start: 10-04-2023 End: 10-04-2023 ambulatory SAUNDERS FAWWAD Not Available Start: 09-07-2023 End: 09-07-2023 ambulatory Herberth Joana Other [employer] [employer] Other Start: 09-07-2023 Telephone encounter Herberth Joana [facility] Start: 08-28-2023 End: 08-28-2023 ambulatory Herberth Joana Other [facility] [employer] Other Start: 08-28-2023 Telephone encounter Herberth Joana [facility] Start: 08-21-2023 End: 08-22-2023 ambulatory Jayshree Vargas MD Facility:[facility] Start: 08-17-2023 End: 08-17-2023 ambulatory Herberth Joana Other [facility] [address] Other Start: 08-17-2023 Office outpatient visit 25 minutes Herberth Joana [facility] Start: 05-08-2023 End: 05-08-2023 [facility] Start: 04-04-2023 End: 04-04-2023 ambulatory SHAIKH Dimitry OHARA Facility:[facility] Start: 03-24-2023 End: 03-25-[address] STEPH GRANADOS Facility:[facility] Start: 03-23-2023 ambulatory JOO [facility] Start: 03-02-2023 End: 03-02-2023 ambulatory Herberth Joana Other [facility] [employer] Other Start: 03-02-2023 Office outpatient visit 25 minutes Herberth Joana [facility] Start: 02-25-2023 End: 02-26-2023 ambulatory HERBERTH JOANA Facility:[facility] Start: 02-22-2023 End: 02-23-2023 ambulatory BO JOHNY . Facility:[facility] Start: 12-15-2022 End: 12-16-[address] JACK HALL . Facility:[facility] Start: 12-08-2022 End: 12-08-2022 ambulatory Shaikh Lev Facility:[facility] Start: 12-08-2022 End: 12-08-2022 Admission to same day surgery center MD Shaikh Ohara Work Phone: [facility] Work Phone: Start: 12-08-2022 End: 12-08-2022 ambulatory MD Shaikh Ohara Work Phone: [facility] Work Phone: Start: 11-11-2022 End: 11-11-[address] JACK HALL . Facility:[facility] Start: 11-09-2022 End: 11-09-2022 ambulatory Gilma Ruelashous Other [employer] Other Start: 11-09-2022 Telephone encounter Azkatherine Ruelashous [facility] Start: 08-19-2022 End: 08-20-2022 ambulatory HERBERTH JOANA Facility:[facility] Start: 08-09-2022 End: 08-09-2022 ambulatory Herberth Joana Other [employer] Other Start: 08-09-2022 Office outpatient visit 10 minutes Herberth Joana [facility] Start: 08-09-2022 Telephone encounter Herberth Joana [facility] Start: 08-05-2022 Telephone encounter Herberth Joana [facility] Start: 08-05-2022 End: 08-06-2022 ambulatory HERBERTH JOANA [facility] [employer] Other Start: 07-08-2022 End: 07-08-2022 ambulatory Gato Domingo Other [facility] Other Start: 07-08-2022 Telephone encounter Gato Cesar ck [facility] Start: 07-05-2022 End: 07-06-2022 ambulatory SAUNDERS H FAWWAD Facility:[facility] Start: 06-08-2022 End: 06-09-2022 ambulatory SAUNDERS H FAWWAD Facility:[facility] Start: 06-07-2022 End: 06-07-2022 ambulatory SAUNDERS H FAWWAD Facility:[facility] Start: 01-24-2022 End: 01-25-2022 ambulatory PHYSICIAN UNKNOWN Facility:[facility] Start: 11-17-2021 End: 11-17-2021 ambulatory Herberth Joana Other [employer] Other Start: 11-17-2021 Office outpatient visit 15 minutes Herberth Joana [facility] Start: 08-30-2021 Office outpatient visit 15 minutes Rena Hurd [facility] Start: 09-11-2020 End: 09-11-2020 Chart abstracting Miguelito Buck Work Phone: Hematology/Oncology Start: 09-11-2020 End: 09-11-2020 Patient encounter procedure External Provider [facility] Start: 09-11-2020 Results Only External Provider Exter [facility] Start: 09-30-2019 End: 09-30-2019 Patient encounter procedure [facility] [place] Start: 07-07-2017 End: 07-07-2017 Admission to day surgery [facility] Start: 05-24-2004 Evaluation and management of inpatient [facility] [place] Start: 04-26-2004 Evaluation and management of inpatient [facility] Procedures Date Procedure Procedure Detail Performing Clinician Start: 12-08-2022 Colonoscopy MD Shaikh Ohara Work Phone: Start: 09-11-2020 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 Provider Start: 09-11-2020 EXTERNAL LAB External P rovider Start: 09-11-2020 EXTERNAL PROCEDURE Exte rnal Provider Start: 09-30-2019 Ultrasonography of b ilateral kidneys Stpeh Collier Plan of Treatment Date Care Activity Detail Author Start: 12-08-2022 [facility] Start: 07-07-2020 Influenza vaccination INFLUENZA (#1) [facility] Start: 2006 SHINGRIX VACCINE (1 of 2) SHINGRIX VACCINE (1 of 2) [facility] Start: 2006 Tuberculosis screening COLORECTAL CANCER SCREENING,SEE MODIFIER [facility] Start: 2001 DIABETES SCREEN DIABETES SCREEN [facility] Start: 2001 LIPID SCREEN LIPID SCREEN [facility] Start: 1996 Mammography MAMMOGRAM [facility] Start: 1986 HPV TESTING HPV TESTING [facility] Start: 1977 PAP TESTING PAP TESTING [facility] Start: 1975 Urine microalbumin profile DTAP,TDAP,TD (1 - Tdap) [facility] Start: 1974 HEPATITIS C SCREENING HEPATITIS C SCREENING [facility] Start: 1974 HIV SCREENING HIV SCREENING [facility] Patient Education Colon Polypect shahram Hemorrhoids (DC) Diverticulosis (DC) [facility] Work Phone: [place] [facility] Immunizations Immunization Date Immunization Notes Care Provider Henrietta tanmayfernanda 07-18-2018 Depo-Medrol 40 mg Rena Gint y Other [employer] Other 01-31-2018 Depo-Medrol 40 mg Rena Gint y Other [employer] Other 08-09-2017 influenza, seasonal, injectable, preservative free Rena Ginty Other [employer] Other Payers Date Payer Category Payer Unknown 2022 Self-pay [id number] 2021 Medicare [id number] 2020 Medicaid [id number] 2019 Medicaid MEDICAID [facility] MEDICAID [id number] 2019-Present Medicaid [id number] 2016 Medicare MEDICARE MEDICAR E A AND B [id number] 2016-Present [place] Medicare [id number] 1959 Unknown [id number] 1956 Unknown [id number] 2.16.840.1.701826.3.579.2.647 1956 Unknown [id number] 2.16.840.1.253104.3.579.2.593 1956 Unknown [id number] 2.16.840.1.856276.3.579.2.593 1956 Unknown [id number] 2.16.840.1.979257.3.579.2.593 1956 Unknown [id number] 2.16.840.1.368532.3.579.2.593 1956 Unknown [id number] 2.16.840.1.227334.3.579.2.593 1956 Unknown [id number] 2.16.840.1.198780.3.579.2.593 1956 Unknown [id number] 2.16.840.1.067872.3.579.2.593 1956 Unknown [id number] 2.16.840.1.526171.3.579.2.593 1956 Unknown [id number] 2.16.840.1.987059.3.579.2.593 1956 Unknown [id number] 2.16.840.1.524371.3.579.2.593 1956 Unknown [id number] 2.16.840.1.691875.3.579.2.593 1956 Unknown [id number] 2.16.840.1.705539.3.579.2.196 1956 Unknown [id number] 2.16.840.1.366333.3.579.2.196 1956 Unknown [id number] 2.16.840.1.364403.3.579.2.1259 1956 Unknown [id number] 2.16.840.1.655721.3.579.2.1259 Medicare [id number] Unknown HCAP/HFA/FAP Active [id number] Unknown [id number] [id number] Social History Date Type Detail Facility Tobacco smoking stat us WIIS Unknown if ever smoked [facility] Start: 1955 Sex Assigned At Female F [facility] Start: 09-11-2020 End: 12-08-2022 Tobacco smoking status NHIS Never smoker [facility] Start: 09-11-2020 Tobacco use and exposure Never used [facility] Start: 09-11-2020 Alcohol intake Lifetime non-d my (finding) [facility] Start: 09-11-2020 History SDOH Alcohol Frequency 1 [facility] Sex Assigned At Not on file [facility] Sex Assigned At Sex Assigned At Bir th [facility] [employer] Other Goals Date Patient Goal Desired Activity /State Clinical Notes 08-30-2021 to 09-07-2023 Note Date & Type Note Facility 09-07-2023 Evaluation note Encounter Date Diagnosis Assessment Notes Sep, Hypomagnesemia (ICD-10 - E83.42) [facility] [employer] Other 10-23-2023 Evaluation note* Encounter Date Diagnosis Assessment Notes Treatment Notes Treatment Clinical Notes Aug, Nico lopez w cr kid I-IV (ICD-10 - I12.9) [facility] [employer] Other 10-12-2023 Evaluation note* Encounter Date Diagnosis [...] PPI induced GI losses. Continue oral Magnesium [employer] [facility] Chief Complaint: Patient here for 1 year follow up CAD and hypertension. She was recently discharged from [facility] for Covid-19. She says hydrochlorothiazide was [...] breath since then. She has seen her motor and controls tester. Her chest pain is noncardiac. She has [...] 325 mg by mouth., Disp: , Rfl: zbtuitctujl-inifbcxzc-hhfyesyj 100-62.5-25 mcg blister with device, , Disp: [...] CTAB, no increased eff (more content not included)...[facility]05-19-2023 NotePROCEDURE: XR HIP RT 2 3V W PELVIS HISTORY: Pain in right hip joint , chronic COMPARISON: XR L-spine 02/26/2019, XR left hip with pelvis 03/11/2017 FINDINGS: BONES:Complete loss of the right hip joint space with dhbm-sj-vfkj articulation, subchondral sclerosis and cysts, and large periarticular degenerative osteophytes. No fracture or dislocation. Left hip replacement. Mechanical fusion of L5-S1 and moderate dextroscoliosis of lumbar spine. SOFT TISSUES:No visible soft tissue swelling. EFFUSION:None visible. OTHER: Negative. IMPRESSION: 1. Marked degenerative joint disease of the right hip; progressed since prior study. 2. Stable surgical changes. 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 [...] may be an additional personal documentation from me.[facility]04-27-2023 Evaluation note* Encounter Date Diagnosis Assessment [...] PPI induced GI losses. Continue oral Magnesium [facility] [employer] Other [facility] Encounter Date Diagnosis Assessment Notes Treatment Notes Treatment Clinical Notes Nov, Hypokalemia (ICD-10 - E87.6) Nov, Hypomagnesemia (ICD-10 - E83.42) [employer] Other 10-04-2022 Evaluation note* Encounter Date Diagnosis [...] office does not accept her new insurance. [employer] Other 09-02-2022 Evaluation note* Encounter Date Diagnosis Assessment Notes Treatment Notes Treatment Clinical Notes Jul, History of colon cancer (ICD-10 - Z85.038) [employer] Other 01-12-2022 Evaluation note* Encounter Date Diagnosis [...] potassium wasting. I have prescribed oral potassium. [employer] Other 10-25-2021 Evaluation note* Encounter Date Diagnosis [...] Patient care instructions given in writting by [facility] Care At Home document [address] Other Evaluation noteNo InformationN[facility]UP[facility] [employer] Other Evaluation note* Diagnosis Onset Date Resolution Status History of colon cancer [facility] Work Phone: History general [...] IN 08/2019 Hospitalization History HIP REVISION 03/2020 [employer] Other History general Narrative - Reported* Type [...] Hospitalization History COVID X 2 WEEKS 04/2023 [employer] Other Hospital Discharge instructions Additional Instructions DISCHARGE [...] if you have any problems. -Office number [phone] Work Phone: Advance Directives No Advanced [...] or prosecute any alcohol or drug abuse patient.[facility] the event this information is protected by the Federal Confidentiality of Alcohol and Drug Abuse Patient Records regulations: The Federal rules restrict any use of the information to criminally investigate or prosecute any alcohol or drug abuse patient.[facility] the event this information is protected by the Federal Confidentiality of Alcohol and Drug Abuse Patient Records regulations: The Federal rules restrict any use of the information to criminally investigate or prosecute any alcohol or drug abuse patient.[facility] the event this information is protected by the Federal Confidentiality of Alcohol and Drug Abuse Patient Records regulations: The Federal rules restrict any use of the information to criminally investigate or prosecute any alcohol or drug abuse patient.[facility] INFORMATION SOURCE (unrecogn ized section and content) DATE CREATED AUTHOR 03/03/2022 [facility] DATE CREATED AUTHOR AUTHOR'S ORGANIZ ATION 04/17/2023 [facility] DATE CREATED AUTHOR AUTHOR'S ORGANIZ ATION 05/08/2023 [facility] DATE CREATED AUTHOR AUTHOR'S ORGANIZ ATION 06/07/2023 [facility] DATE CREATED AUTHOR AUTHOR'S ORGANIZ ATION 10/20/2023 [facility] DATE CREATED AUTHOR AUTHOR'S ORGANIZ ATION 11/04/2023 [facility] Special[facility] EPIC REASON FOR VISIT (unrecogniz ed [...] BE BASED ON THE PRIMARY CLINICAL RECORDS. [employer] provides no warranty or guarantee of the accuracy or completeness of information in this document.
[2023-11-25 17:44] LABS: Lactate/Lactic Acid 2.2 mmol/L (0.4-2.0)
[2023-11-25] MEDS: SODIUM CHLORIDE 0.9% INHALATION 3 ML NEB 6 ML IH ×2 (20:25→23:18)
[2023-11-25 20:34] LABS: Lactate/Lactic Acid 3.1 mmol/L (0.4-2.0)
[2023-11-25] MEDS: LACTATED RINGER'S SOLUTION 1,000 ML 80 ML IV (20:34)
[2023-11-25] MEDS: PREGABALIN 75 MG CAPSULE PO (20:34)
[2023-11-25] MEDS: ACETAMINOPHEN 500 MG TABLET 1000 MG PO (20:34)
[2023-11-25] MEDS: PRAMIPEXOLE 0.125 MG TABLET 0.25 MG PO (20:34)
[2023-11-25] MEDS: ENOXAPARIN SODIUM 40 MG/0.4 ML SYRINGE SUBQ (20:34)
[2023-11-25] MEDS: GUAIFENESIN 600 MG TAB.ER.12H PO (20:35)
[2023-11-25] MEDS: OMEPRAZOLE 20 MG CAPSULE.DR PO (20:35)
[2023-11-25] MEDS: LOSARTAN POTASSIUM 50 MG TABLET PO (20:35)
[2023-11-25] MEDS: METHYLPREDNISOLONE SOD SUCC PF 125 MG/2 ML VIAL 60 MG IVP (22:05)
[2023-11-25] MEDS: TRAZODONE HCL 50 MG TABLET 100 MG PO (22:05)
[2023-11-25] MEDS: SODIUM CHLORIDE 3% INHALATION 15 ML NEB 3 ML IH (23:18)
[2023-11-26] VITALS (19 sets, daily range): BP systolic 122–169; BP diastolic 66–87; PULSE 54–89; RESP 16–20; TEMP 36.3–36.7; O2SAT 90–94
[2023-11-26 00:20] LABS: Lactate/Lactic Acid 1.9 mmol/L (0.4-2.0)
[2023-11-26] MEDS: IPRATROPIUM/ALBUTEROL SULFATE 3 ML AMPUL.NEB IH ×6 (03:57→23:28)
--- NOTE | 2023-11-26 05:00 | XR_ITS ---
The [address] [address] Patient Name: JHONATAN MONTOYA MRN: [id number] date: 1955 Sex: F Assigned Patient Location: ICU Current Patient Location: ICU Accession/Order Number: [id number] Exam Date: 11/26/2023 05:25 Report Date: 11/26/2023 08:12 At the request of: ROSI ZAZUETA Procedure: XR chest 1V EXAM: XR chest 1V HISTORY: pneumonia COMPARISON: 11/25/2023 TECHNIQUE: Single frontal view of the chest. FINDINGS/ XR/XR chest 1V IMPRESSION: Tubes/lines/devices: None. Lungs: Adequate inflation. Patchy right lower lung opacities, unchanged. Additional retrocardiac consolidation, unchanged. No new parenchymal abnormality. Pleura: No pneumothorax. No pleural effusion. Heart and mediastinum: No enlargement of the cardiomediastinal silhouette. Bones/soft tissues: No acute osseous findings. Unremarkable soft tissues. Abdomen: Unremarkable. Electronically authenticated by: CHELSEY CANELA Date: 11/26/2023 08:12
[2023-11-26] MEDS: METHYLPREDNISOLONE SOD SUCC PF 125 MG/2 ML VIAL 60 MG IVP ×3 (05:32→21:27)
[2023-11-26 05:35] LABS: BUN Creatinine Ratio 15.6; Calcium 8.2 mg/dL (8.5-10.1); Carbon Dioxide 27.5 mmol/L (21.0-32.0); Chloride 102 mmol/L (98-107); Estimated GFR (African America >60 (>=60); Estimated GFR (Non-African Ame 50 (>=60); Glucose 167 mg/dL (74-106); Potassium 4.5 mmol/L (3.5-5.1); Sodium 139 mmol/L (136-145)
[2023-11-26 05:46] LABS: Basophils Percent Auto 0.1 % (0.2-2.0); Hematocrit 34.3 % (36.0-48.0); Hemoglobin 11.2 g/dL (12.0-16.0); Immature Granulocytes Pct Auto 0.6 % (0.0-0.5); Lymphocytes Absolute Auto 0.4 10^3/uL (1.2-3.8); Lymphocytes Percent Auto 2.6 % (20.5-60.0); Mean Corpuscular HGB Conc 32.7 g/dL (29.9-35.2); Mean Corpuscular Hemoglobin 31.2 pg (26.7-34.0); Mean Corpuscular Volume 95.5 fL (81.0-99.0); Mean Platelet Volume 9.1 fL (9.5-13.5); Monocytes Absolute Auto 0.3 10^3/uL (0.3-0.8); Monocytes Percent Auto 1.8 % (1.7-12.0); Neutrophils Absolute Auto 15.5 10^3/uL (1.4-6.5); Neutrophils Percent Auto 94.9 % (43.0-75.0); Platelet Count 205 10^3/uL (150-450); Red Blood Count 3.59 10^6/uL (4.20-5.40); Red Cell Distribution Width 13.6 % (11.0-15.0); White Blood Count 16.3 10^3/uL (4.0-11.0)
[2023-11-26] MEDS: SODIUM CHLORIDE 3% INHALATION 15 ML NEB 3 ML IH ×3 (07:40→23:29)
[2023-11-26] MEDS: CHOLECALCIFEROL (VITAMIN D3) 25 MCG/1,000 UNITS TABLET PO (08:51)
[2023-11-26] MEDS: LACTATED RINGER'S SOLUTION 1,000 ML 80 ML IV ×2 (08:51→21:31)
[2023-11-26] MEDS: PAROXETINE HCL 20 MG TABLET 30 MG PO (08:51)
[2023-11-26] MEDS: MAGNESIUM OXIDE 400 MG TABLET PO (08:52)
[2023-11-26] MEDS: GUAIFENESIN 600 MG TAB.ER.12H PO ×2 (08:53→21:28)
[2023-11-26] MEDS: SOLIFENACIN SUCCINATE 10 MG TABLET PO (08:53)
[2023-11-26] MEDS: MONTELUKAST SODIUM 10 MG TABLET PO (08:53)
[2023-11-26] MEDS: OMEPRAZOLE 20 MG CAPSULE.DR PO ×2 (08:53→21:28)
[2023-11-26] MEDS: LOSARTAN POTASSIUM 50 MG TABLET PO ×2 (08:54→21:28)
[2023-11-26] MEDS: PREGABALIN 75 MG CAPSULE PO ×2 (08:54→21:28)
[2023-11-26] MEDS: AMLODIPINE BESYLATE 5 MG TABLET PO (08:55)
--- NOTE | 2023-11-26 10:47 | P.HP_ITS ---
H&P: HPI History of Present Illness Chief complaint: LOW OXYGEN Narrative: 68 y/o female with a history of COPD to ER with SOB. C/o worsening SOB for 3-4 days. Frequent cough productive of sputum. Increased fatigue. C/o chills but no fever. Pulse ox at home in 80s and to ER. WBC elevated at 17.5. Lactate elevated and BP low. Chest x-ray with pneumonia and CTA negative for PE but again showed pneumonia. Admitted for treatment. Started levaquin for pneumonia. Started solu-medrol and DuoNeb for COPD. Worsening hypoxia overnight and currently on 4 LPM. Overall feels better and less SOB. Repeat chest x-ray unchanged. Review of Systems ROS Constitutional Reports: chills and fatigue; Denies: fever Cardiovascular Denies: chest pain, palpitations or edema Respiratory Reports: shortness of breath, cough and wheezing Gastrointestinal Denies: abdominal pain, nausea, vomiting or diarrhea Genitourinary Denies: painful urination [facility] Medical History (Updated 11/26/23 @ 09:43 by Tapan Barboza MD) Myofascial pain ?M79.18 - Myalgia, other site (ICD-10) Greater trochanteric bursitis ?M70.60 - Trochanteric bursitis, unspecified hip (ICD-10) Osteoarthritis of right hip ?M16.11 - Unilateral primary osteoarthritis, right hip (ICD-10) Chronic, continuous use of opioids ?F11.90 - Opioid use, unspecified, uncomplicated (ICD-10) Lumbar spondylosis ?M47.816 - Spondylosis without myelopathy or radiculopathy, lumbar region (ICD-10) Lumbar postlaminectomy syndrome ?M96.1 - Postlaminectomy syndrome, not elsewhere classified (ICD-10) Lumbar stenosis with neurogenic claudication ?M48.062 - Spinal stenosis, lumbar region with neurogenic claudication (ICD- 10) Depression ?F32.A - Depression, unspecified (ICD-10) Chronic low back pain ?M54.50 - Low back pain, unspecified (ICD-10) ?G89.29 - Other chronic pain (ICD-10) Hypoxia ?R09.02 - Hypoxemia (ICD-10) Heart murmur ?R01.1 - Cardiac murmur, unspecified (ICD-10) Chronic obstructive pulmonary disease ?J44.9 - Chronic obstructive pulmonary disease, unspecified (ICD-10) Asthma ?J45.909 - Unspecified asthma, uncomplicated (ICD-10) Surgical History (Updated 11/26/23 @ 09:40 by Tapan Barboza MD) History of lumbar fusion ?Z98.1 - Arthrodesis status (ICD-10) Social History Smoking status: Never smoker Highest level of school completed/degree received: Associate degree: occupational, technical, vocational program Do you think of yourself as: straight/heterosexual Gender Identity: female Meds Home Medications and Allergies Home Medications Medication Instructions Recorded Confirmed Type albuterol sulfate 90 mcg/actuation 2 puff inhalation Q4H PRN 04/10/23 11/25/23 History aerosol inhaler shortness of breath or wheezing fluticasone fur. 200 mcg-umeclid 1 inh inhalation Q24H COPD 04/10/23 11/25/23 History 62.5 mcg-vilant 25 mcg inhalat.powder (Trelegy Ellipta) magnesium oxide 400 mg (241.3 mg 400 mg PO DAILY 04/10/23 11/25/23 History magnesium) tablet omeprazole 20 mg capsule,delayed 20 mg PO BID 04/10/23 11/25/23 History release ipratropium 0.5 mg-albuterol 3 mg 3 ml inhalation Q6H PRN shortness 04/22/23 11/25/23 Rx (2.5 mg base)/3 mL nebulization of breath or wheezing #90 mL soln losartan 50 mg tablet (Cozaar) 50 mg PO BID 08/21/23 11/25/23 History alendronate 35 mg tablet 35 mg PO .weekly 09/14/23 11/25/23 History montelukast 10 mg tablet 10 mg PO DAILY 09/14/23 11/25/23 History pramipexole 0.25 mg tablet 0.25 mg PO QPM 09/14/23 11/25/23 History (Mirapex) amlodipine 5 mg tablet 5 mg PO QDAY 11/25/23 11/25/23 History cholecalciferol (vitamin D3) 25 25 mcg PO QDAY 11/25/23 11/25/23 History mcg (1,000 unit) tablet paroxetine HCl 30 mg tablet 30 mg PO QDAY 11/25/23 11/25/23 History pregabalin 75 mg capsule 75 mg PO BID 11/25/23 11/25/23 History sodium chloride 0.9 % for 3 ml inhalation Q8H 11/25/23 11/25/23 History nebulization solifenacin 10 mg tablet 10 mg PO QDAY 11/25/23 11/25/23 History trazodone 100 mg tablet 100 mg PO .qhs 11/25/23 11/25/23 History Allergies Allergy/AdvReac Type Severity Reaction Status Date / Time No Known Drug Allergies Allergy Verified 11/25/23 14:06 Exam Constitutional Vital Signs, click to edit/add: Last Vital Signs Temp 97.4 F L 11/26/23 05:48 Pulse 77 11/26/23 10:03 Resp 20 11/26/23 08:57 BP 160/80 H 11/26/23 08:55 Pulse Ox 93 L 11/26/23 10:03 O2 Del Method Nasal Cannula 11/26/23 08:57 O2 Flow Rate 4 11/26/23 08:57 Documenting provider has reviewed patient's vital signs: yes Common normals: no apparent distress, oriented x3 and alert HENMT Common normals: normocephalic Eye Common normals: PERRL and EOMs intact bilaterally Respiratory Auscultation: wheezes and diminished lung sounds Cardio Common normals: regular rate, regular rhythm, no gallops, no murmurs and no rub GI Common normals: Normal to inspection, nondistended, normoactive bowel sounds present and non-tender Extremity Common normals: no pedal edema Results Labs Labs: Short CBC 11/25/23 11/26/23 Range/Units 14:15 05:34 WBC 17.5 H 16.3 H (4.0-11.0) 10^3/uL Hgb 12.6 11.2 L (12.0-16.0) g/dL Hct 39.6 34.3 L (36.0-48.0) % Plt Count 252 205 (150-450) 10^3/uL BMP 11/25/23 11/26/23 14:15 04:07 Sodium 138 139 Potassium 3.7 4.5 Chloride 100 102 Carbon Dioxide 28.2 27.5 BUN 12.0 17.0 Creatinine 1.27 H 1.09 H Glucose 91 167 H Calcium 8.5 8.2 L ABG ABG results: 11/25/23 14:34 ABG pH 7.406 ABG pCO2 41.6 ABG pO2 59.6 L* ABG HCO3 26.1 H ABG O2 Saturation 93.4 ABG Base Excess 1.4 Pulse Oximetry Attestation: I have reviewed the pertinent pulse oximetry results. Imaging Chest x-ray: Attestation: I have reviewed the pertinent imaging results. Assessment and Plan Assessment and Plan (1) Severe sepsis: (2) Community acquired pneumonia: (3) Acute hypoxic respiratory failure: (4) Acute infective exacerbation of chronic obstructive airway disease: (5) Hypertension: Qualifiers: Hypertension type: primary hypertension Qualified Code(s): I10 - Essential (primary) hypertension (6) Chronic heart failure with preserved ejection fraction (HFpEF): (7) CAD (coronary artery disease): Plan Presented with severe sepsis as evidenced by elevated WBC, lactate, and low BP. History of CHF and did not give 30 mL/kg fluid bolus and instead chose gentle hydration. Improved with IV fluids and lactate normal. Continued SOB and WBC minimally improved. Add rocephin in addition to levaquin. Continue steroids and breathing treatments. Start PT/OT for weakness. Resume home medication. Wean O2 as tolerated. Monitor for signs of fluid overload. Plan for at least a 2 midnight stay for inpatient medically necessary services.
[2023-11-26] MEDS: BUDESONIDE 0.5 MG/2 ML AMPULE NEB IH ×2 (11:33→23:28)
[2023-11-26] MEDS: SODIUM CHLORIDE 0.9% INHALATION 3 ML NEB 6 ML IH ×2 (11:33→19:34)
[2023-11-26] MEDS: CEFTRIAXONE 1,000 MG in 0.9 % SODIUM CHLORIDE 50 ML 100 MG IV (12:00)
[2023-11-26] MEDS: ACETAMINOPHEN 500 MG TABLET 1000 MG PO (18:13)
[2023-11-26] MEDS: TRAZODONE HCL 50 MG TABLET 100 MG PO (21:28)
[2023-11-26] MEDS: PRAMIPEXOLE 0.125 MG TABLET 0.25 MG PO (21:28)
[2023-11-26] MEDS: ENOXAPARIN SODIUM 40 MG/0.4 ML SYRINGE SUBQ (21:29)
[2023-11-27] VITALS (11 sets, daily range): BP systolic 114–159; BP diastolic 56–85; PULSE 71–90; RESP 18–22; TEMP 36.7–36.8; O2SAT 87–94
[2023-11-27] MEDS: IPRATROPIUM/ALBUTEROL SULFATE 3 ML AMPUL.NEB IH ×6 (03:53→23:31)
[2023-11-27 04:34] LABS: Basophils Percent Auto 0.1 % (0.2-2.0); Hematocrit 36.7 % (36.0-48.0); Hemoglobin 11.6 g/dL (12.0-16.0); Immature Granulocytes Abs Auto 0.16 10^3/uL (0.00-0.03); Immature Granulocytes Pct Auto 1.2 % (0.0-0.5); Lymphocytes Absolute Auto 0.6 10^3/uL (1.2-3.8); Lymphocytes Percent Auto 4.5 % (20.5-60.0); Mean Corpuscular HGB Conc 31.6 g/dL (29.9-35.2); Mean Corpuscular Hemoglobin 30.4 pg (26.7-34.0); Mean Corpuscular Volume 96.1 fL (81.0-99.0); Mean Platelet Volume 9.3 fL (9.5-13.5); Monocytes Absolute Auto 0.5 10^3/uL (0.3-0.8); Monocytes Percent Auto 3.6 % (1.7-12.0); Neutrophils Absolute Auto 12.1 10^3/uL (1.4-6.5); Neutrophils Percent Auto 90.6 % (43.0-75.0); Platelet Count 275 10^3/uL (150-450); Red Blood Count 3.82 10^6/uL (4.20-5.40); Red Cell Distribution Width 13.9 % (11.0-15.0); White Blood Count 13.4 10^3/uL (4.0-11.0)
[2023-11-27 04:50] LABS: Anion Gap 16.5; BUN Creatinine Ratio 16.9; Calcium 8.7 mg/dL (8.5-10.1); Carbon Dioxide 26.2 mmol/L (21.0-32.0); Chloride 103 mmol/L (98-107); Estimated GFR (African America 45 (>=60); Estimated GFR (Non-African Ame 37 (>=60); Glucose 246 mg/dL (74-106); Potassium 3.7 mmol/L (3.5-5.1); Sodium 142 mmol/L (136-145)
[2023-11-27] MEDS: METHYLPREDNISOLONE SOD SUCC PF 125 MG/2 ML VIAL 60 MG IVP ×4 (05:32→21:45)
[2023-11-27] MEDS: SODIUM CHLORIDE 3% INHALATION 15 ML NEB 3 ML IH ×3 (06:55→23:32)
[2023-11-27] MEDS: LOSARTAN POTASSIUM 50 MG TABLET PO ×2 (08:41→21:46)
[2023-11-27] MEDS: CHOLECALCIFEROL (VITAMIN D3) 25 MCG/1,000 UNITS TABLET PO (08:41)
[2023-11-27] MEDS: OMEPRAZOLE 20 MG CAPSULE.DR PO ×2 (08:41→21:45)
[2023-11-27] MEDS: PAROXETINE HCL 20 MG TABLET 30 MG PO (08:41)
[2023-11-27] MEDS: GUAIFENESIN 600 MG TAB.ER.12H PO ×2 (08:41→21:45)
[2023-11-27] MEDS: MONTELUKAST SODIUM 10 MG TABLET PO (08:41)
[2023-11-27] MEDS: PREGABALIN 75 MG CAPSULE PO ×2 (08:41→21:45)
[2023-11-27] MEDS: AMLODIPINE BESYLATE 5 MG TABLET PO (08:41)
[2023-11-27] MEDS: SOLIFENACIN SUCCINATE 10 MG TABLET PO (08:41)
[2023-11-27] MEDS: MAGNESIUM OXIDE 400 MG TABLET PO (08:41)
[2023-11-27] MEDS: CEFTRIAXONE 1,000 MG in 0.9 % SODIUM CHLORIDE 50 ML 100 MG IV (10:02)
--- NOTE | 2023-11-27 10:05 | CM.NOTE ---
Rounds made with Dr. Barboza, pt continues to have increasing SOB with any activity. Pt continues to be on oxygen. No discharge today.
--- NOTE | 2023-11-27 10:38 | PM.PN ---
Progress Note: Subjective Subjective Interval history: Patient continues to improve. Less SOB and mild cough. Starting to bring up phlegm and less SOB. Normal appetite and no emesis or diarrhea. Afebrile. Continues to have SOB and fatigue with exertion but stength okay. Working with PT. No chest pain or palpitations. Exam Constitutional Vital Signs, click to edit/add: Last Vital Signs Temp 98.1 F 11/27/23 05:43 Pulse 83 11/27/23 06:57 Resp 18 11/27/23 05:43 BP 114/56 11/27/23 05:43 Pulse Ox 90 L 11/27/23 06:57 O2 Del Method Nasal Cannula 11/27/23 06:57 O2 Flow Rate 3 11/27/23 06:57 Documenting provider has reviewed patient's vital signs: yes Common normals: no apparent distress, oriented x3 and alert HENMT Common normals: normocephalic Eye Common normals: PERRL and EOMs intact bilaterally Respiratory Auscultation: wheezes and diminished lung sounds Cardio Common normals: regular rate, regular rhythm, no gallops, no murmurs and no rub GI Common normals: Normal to inspection, nondistended, normoactive bowel sounds present and non-tender Extremity Common normals: no pedal edema Progress Note: Objective Labs Labs: Short CBC 11/27/23 Range/Units 04:20 WBC 13.4 H (4.0-11.0) 10^3/uL Hgb 11.6 L (12.0-16.0) g/dL Hct 36.7 (36.0-48.0) % Plt Count 275 (150-450) 10^3/uL BMP 11/27/23 04:20 Sodium 142 Potassium 3.7 Chloride 103 Carbon Dioxide 26.2 BUN 24.0 H Creatinine 1.42 H Glucose 246 H Calcium 8.7 Progress Note: A&P Assessment and Plan (1) Severe sepsis: (2) Community acquired pneumonia: (3) Acute hypoxic respiratory failure: (4) Acute infective exacerbation of chronic obstructive airway disease: (5) Hypertension: Qualifiers: Hypertension type: primary hypertension Qualified Code(s): I10 - Essential (primary) hypertension (6) Chronic heart failure with preserved ejection fraction (HFpEF): (7) CAD (coronary artery disease): Plan SOB improved but continues to have severe SOB with exertion and decreased BS. Continue antibiotics, steroids, and breathing treatments. Continue PEP and wean O2 as tolerated. Increase ambulation. Likely home in next 1-3 days.
[2023-11-27] MEDS: BUDESONIDE 0.5 MG/2 ML AMPULE NEB IH ×2 (11:16→23:31)
[2023-11-27] MEDS: SODIUM CHLORIDE 0.9% INHALATION 3 ML NEB 6 ML IH ×2 (11:16→18:59)
--- NOTE | 2023-11-27 11:47 | SWNOTE1 ---
SW checked OT/PT notes, no need for home health at this time. Pt has no discharge needs.
[2023-11-27] MEDS: LEVOFLOXACIN IN DEXTROSE 5 % 750 MG/150 ML IV.SOLN 100 MG IV (14:19)
[2023-11-27] MEDS: ACETAMINOPHEN 500 MG TABLET 1000 MG PO (14:20)
[2023-11-27] MEDS: ENOXAPARIN SODIUM 40 MG/0.4 ML SYRINGE SUBQ (21:45)
[2023-11-27] MEDS: TRAZODONE HCL 50 MG TABLET 100 MG PO (21:45)
[2023-11-27] MEDS: PRAMIPEXOLE 0.125 MG TABLET 0.25 MG PO (21:48)
[2023-11-28] VITALS (18 sets, daily range): BP systolic 142–160; BP diastolic 68–81; PULSE 69–92; RESP 16–26; TEMP 36.6; O2SAT 82–97
[2023-11-28] MEDS: IPRATROPIUM/ALBUTEROL SULFATE 3 ML AMPUL.NEB IH ×6 (03:51→22:10)
--- NOTE | 2023-11-28 03:51 | RESP.RT ---
Increased up to 4L and breathing tx given at this time
--- NOTE | 2023-11-28 04:07 | RESP.RT ---
titrated up to 5L and Sp02 remaind 86%, titrated up to 6L and Sp02 increased to 88%-89%
--- NOTE | 2023-11-28 04:58 | RESP.RT ---
Sp02 86% on 6L nasal cannula. ABG drawn and placed pt on Vapotherm at this time 40L Fi02 100%, Spo2 increased to 89%
[2023-11-28 05:08] LABS: Allen Test POSITIVE (POSITIVE); Base Excess ABG 6.5 mmol/L (-2.0-2.0); HCO3 ABG 30.3 mmol/L (22.0-26.0); Oxygen Saturation ABG 87.3 %; pH ABG 7.466 (7.350-7.450)
[2023-11-28 05:09] LABS: Liters per Minute 6; O2 Mode NASAL CANNULA; PO2 ABG 48.1 mmHg (80.0-100.0); Puncture Site L RADIAL
[2023-11-28] MEDS: METHYLPREDNISOLONE SOD SUCC PF 125 MG/2 ML VIAL 60 MG IVP ×4 (05:20→21:07)
[2023-11-28] MEDS: ACETAMINOPHEN 500 MG TABLET 1000 MG PO (05:21)
[2023-11-28 05:33] LABS: Basophils Percent Auto 0.3 % (0.2-2.0); Hemoglobin 11.2 g/dL (12.0-16.0); Immature Granulocytes Abs Auto 0.27 10^3/uL (0.00-0.03); Immature Granulocytes Pct Auto 4.5 % (0.0-0.5); Lymphocytes Absolute Auto 0.6 10^3/uL (1.2-3.8); Lymphocytes Percent Auto 10.4 % (20.5-60.0); Mean Corpuscular HGB Conc 31.1 g/dL (29.9-35.2); Mean Corpuscular Hemoglobin 29.9 pg (26.7-34.0); Mean Corpuscular Volume 96.3 fL (81.0-99.0); Mean Platelet Volume 9.6 fL (9.5-13.5); Monocytes Absolute Auto 0.3 10^3/uL (0.3-0.8); Monocytes Percent Auto 4.8 % (1.7-12.0); Neutrophils Absolute Auto 4.8 10^3/uL (1.4-6.5); Platelet Count 271 10^3/uL (150-450); Red Blood Count 3.74 10^6/uL (4.20-5.40); Red Cell Distribution Width 13.6 % (11.0-15.0)
[2023-11-28 05:43] LABS: Carbon Dioxide 30.4 mmol/L (21.0-32.0); Chloride 106 mmol/L (98-107); Estimated GFR (African America 47 (>=60); Estimated GFR (Non-African Ame 39 (>=60); Glucose 236 mg/dL (74-106); Potassium 4.4 mmol/L (3.5-5.1); Sodium 145 mmol/L (136-145)
[2023-11-28] MEDS: SODIUM CHLORIDE 3% INHALATION 15 ML NEB 3 ML IH ×3 (07:27→22:10)
[2023-11-28] MEDS: SOLIFENACIN SUCCINATE 10 MG TABLET PO (08:12)
[2023-11-28] MEDS: PAROXETINE HCL 20 MG TABLET 30 MG PO (08:12)
[2023-11-28] MEDS: PREGABALIN 75 MG CAPSULE PO ×2 (08:12→21:08)
[2023-11-28] MEDS: GUAIFENESIN 600 MG TAB.ER.12H PO ×2 (08:12→21:08)
[2023-11-28] MEDS: OMEPRAZOLE 20 MG CAPSULE.DR PO ×2 (08:12→21:08)
[2023-11-28] MEDS: MAGNESIUM OXIDE 400 MG TABLET PO (08:12)
[2023-11-28] MEDS: CHOLECALCIFEROL (VITAMIN D3) 25 MCG/1,000 UNITS TABLET PO (08:12)
[2023-11-28] MEDS: AMLODIPINE BESYLATE 5 MG TABLET PO (08:12)
[2023-11-28] MEDS: MONTELUKAST SODIUM 10 MG TABLET PO (08:13)
[2023-11-28] MEDS: LOSARTAN POTASSIUM 50 MG TABLET PO ×2 (08:13→21:08)
--- NOTE | 2023-11-28 09:25 | XR_ITS ---
The [address] [address] Patient Name: JHONATAN MONTOYA MRN: [id number] date: 1955 Sex: F Assigned Patient Location: [place] Current Patient Location: [place] Accession/Order Number: [id number] Exam Date: 11/28/2023 09:31 Report Date: 11/28/2023 09:49 At the request of: ROSI ZAZUETA Procedure: XR chest 1V EXAM: XR chest 1V HISTORY: pneumonia, hypoxia COMPARISON: 11/26/2023 TECHNIQUE: AP portable erect FINDINGS: LUNGS: Left lung volume loss. Moderate diffuse left lung infiltrates obscuring the hemidiaphragm and partially obscuring the heart border. Minimal right basilar infiltrate VASCULATURE: No increased pulmonary vasculature. PLEURA: No pneumothorax. Small bilateral pleural effusions CARDIAC: Cardiomegaly MEDIASTINUM: No visible mass or adenopathy. BONES: No fracture or visible bone lesion. OTHER: Negative. XR/XR chest 1V IMPRESSION: Moderate left lung infiltrates consider pneumonia and pleural effusion Minimal right basilar infiltrate Electronically authenticated by: BRITTANY VANESSA Date: 11/28/2023 09:49
[2023-11-28] MEDS: CEFTRIAXONE 1,000 MG in 0.9 % SODIUM CHLORIDE 50 ML 100 MG IV (10:12)
[2023-11-28] MEDS: BUDESONIDE 0.5 MG/2 ML AMPULE NEB IH ×2 (10:44→22:10)
--- NOTE | 2023-11-28 10:46 | RESP.RT ---
FiO2 not decreased d/t PaO2 of 48.1 on ABG this morning
--- NOTE | 2023-11-28 11:28 | CM.NOTE ---
Rounds made with Dr. Barboza, pt now on vapotherm. Discussed with pt about consulting Dr. Lopes for further recommendations.
--- NOTE | 2023-11-28 11:39 | PM.PN ---
Progress Note: Subjective Subjective Interval history: Patient with worsening hypoxia overnight. Continues to have SOB and fatigue with exertion. Very difficult to ambulate around room. Continued cough and sputum. Increased oxygen and now placed on high flow oxygen. Normal appetite and no emesis or diarrhea. Afebrile. Working with PT and ambulating well. No chest pain or palpitations. Exam Constitutional Vital Signs, click to edit/add: Last Vital Signs Temp 97.8 F 11/28/23 04:40 Pulse 74 11/28/23 07:30 Resp 20 11/28/23 04:40 BP 160/68 H 11/28/23 04:40 Pulse Ox 95 11/28/23 10:46 O2 Del Method Vapotherm 11/28/23 10:46 O2 Flow Rate 40 11/28/23 10:46 FiO2 100 11/28/23 10:46 Documenting provider has reviewed patient's vital signs: yes Common normals: no apparent distress and oriented x3 HENMT Common normals: normocephalic Eye Common normals: PERRL and EOMs intact bilaterally Respiratory Auscultation: wheezes and diminished lung sounds Cardio Common normals: regular rate, regular rhythm, no gallops, no murmurs and no rub GI Common normals: Normal to inspection, nondistended, normoactive bowel sounds present and non-tender Extremity Common normals: no pedal edema Progress Note: Objective Labs Labs: Short CBC 11/28/23 Range/Units 04:51 WBC 6.0 (4.0-11.0) 10^3/uL Hgb 11.2 L (12.0-16.0) g/dL Hct 36.0 (36.0-48.0) % Plt Count 271 (150-450) 10^3/uL BMP 11/28/23 04:51 Sodium 145 Potassium 4.4 Chloride 106 Carbon Dioxide 30.4 BUN 27.0 H Creatinine 1.35 H Glucose 236 H Calcium 9.0 Progress Note: A&P Assessment and Plan (1) Severe sepsis: (2) Community acquired pneumonia: (3) Acute hypoxic respiratory failure: (4) Acute infective exacerbation of chronic obstructive airway disease: (5) Hypertension: Qualifiers: Hypertension type: primary hypertension Qualified Code(s): I10 - Essential (primary) hypertension (6) Chronic heart failure with preserved ejection fraction (HFpEF): (7) CAD (coronary artery disease): Plan Continued SOB and worsening hypoxia. Continue antibiotics, steroids, and breathing treatments. WBC improved. Consult pulmonology.
--- NOTE | 2023-11-28 17:22 | P.PLCN_ITS ---
History of Present Illness History of Present Illness Consult date: 11/28/23 Requesting physician: Tapan Barboza Reason for consult: hypoxemia and pneumonia Chief complaint: LOW OXYGEN Narrative: 68yo female, very well known to me, with COPD secondary to secondhand smoke (she never smoked herself). She had a very severe COVID-19 pneumonia last April which took a lengthy amount of time to heal. 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 She finally regained her strength and was doing okay when I saw her in the office, but she still was not back to her baseline. Last visit with me was 11/07/2023. CXR 10/25/2023 showed bronchitis/pneumonitis. She was treated with cefdinir and doxycycline, along with prednisone taper. She was better on 11/07/2023, but still complained of dyspnea; she had a chest CT scheduled for the end of December. Around last Monday (11/24/2023), she began feeling more tired and fatigued. Had sweats, but denied any fevers or chills. No known sick contacts. Denied vomiti ng or aspirating. Breathing was worsening. She eventually was seen in the ER. CT chest noted LLL infiltrate with some scattered GGO in the right lung. Respiratory panel was negative. She was started on antibiotics (Rocephin + Levaquin). She was hypoxic and placed on supplemental O2 (she is not on O2 @ baseline). The past 24 hours, her O2 demands have increased and she is now on Vapotherm @ FiO2 100% with flow @ 35L/min. She states she is tolerating the Vapotherm, but still feels tired. She is expectorating some thick yellow secretions. No hemoptysis. Review of Systems ROS Status of ROS 10 or more systems reviewed and unremark able except as noted in history and below [facility] Medical History (Updated 11/26/23 @ 09:43 by Tapan Barboza MD) Myofascial pain ?M79.18 - Myalgia, other site (ICD-10) Greater trochanteric bursitis ?M70.60 - Trochanteric bursitis, unspecified hip (ICD-10) Osteoarthritis of right hip ?M16.11 - Unilateral primary osteoarthritis, right hip (ICD-10) Chronic, continuous use of opioids ?F11.90 - Opioid use, unspecified, uncomplicated (ICD-10) Lumbar spondylosis ?M47.816 - Spondylosis without myelopathy or radiculopathy, lumbar region (ICD-10) Lumbar postlaminectomy syndrome ?M96.1 - Postlaminectomy syndrome, not elsewhere classified (ICD-10) Lumbar stenosis with neurogenic claudication ?M48.062 - Spinal stenosis, lumbar region with neurogenic claudication (ICD- 10) Depression ?F32.A - Depression, unspecified (ICD-10) Chronic low back pain ?M54.50 - Low back pain, unspecified (ICD-10) ?G89.29 - Other chronic pain (ICD-10) Hypoxia ?R09.02 - Hypoxemia (ICD-10) Heart murmur ?R01.1 - Cardiac murmur, unspecified (ICD-10) Chronic obstructive pulmonary disease ?J44.9 - Chronic obstructive pulmonary disease, unspecified (ICD-10) Asthma ?J45.909 - Unspecified asthma, uncomplicated (ICD-10) Surgical History (Updated 11/26/23 @ 09:40 by Tapan Barboza MD) History of lumbar fusion ?Z98.1 - Arthrodesis status (ICD-10) Social History Smoking status: Never smoker Highest level of school completed/degree received: Associate degree: occupational, technical, vocational program Do you think of yourself as: straight/heterosexual Gender Identity: female Meds Home Medications and Allergies Home Medications Medication Instructions Recorded Confirmed Type albuterol sulfate 90 mcg/actuation 2 puff inhalation Q4H PRN 04/10/23 11/25/23 History aerosol inhaler shortness of breath or wheezing fluticasone fur. 200 mcg-umeclid 1 inh inhalation Q24H COPD 04/10/23 11/25/23 History 62.5 mcg-vilant 25 mcg inhalat.powder (Trelegy Ellipta) magnesium oxide 400 mg (241.3 mg 400 mg PO DAILY 04/10/23 11/25/23 History magnesium) tablet omeprazole 20 mg capsule,delayed 20 mg PO BID 04/10/23 11/25/23 History release ipratropium 0.5 mg-albuterol 3 mg 3 ml inhalation Q6H PRN shortness 04/22/23 11/25/23 Rx (2.5 mg base)/3 mL nebulization of breath or wheezing #90 mL soln losartan 50 mg tablet (Cozaar) 50 mg PO BID 08/21/23 11/25/23 History alendronate 35 mg tablet 35 mg PO .weekly 09/14/23 11/25/23 History montelukast 10 mg tablet 10 mg PO DAILY 09/14/23 11/25/23 History pramipexole 0.25 mg tablet 0.25 mg PO QPM 09/14/23 11/25/23 History (Mirapex) amlodipine 5 mg tablet 5 mg PO QDAY 11/25/23 11/25/23 History cholecalciferol (vitamin D3) 25 25 mcg PO QDAY 11/25/23 11/25/23 History mcg (1,000 unit) tablet paroxetine HCl 30 mg tablet 30 mg PO QDAY 11/25/23 11/25/23 History pregabalin 75 mg capsule 75 mg PO BID 11/25/23 11/25/23 History sodium chloride 0.9 % for 3 ml inhalation Q8H 11/25/23 11/25/23 History nebulization solifenacin 10 mg tablet 10 mg PO QDAY 11/25/23 11/25/23 History trazodone 100 mg tablet 100 mg PO .qhs 11/25/23 11/25/23 History Allergies Allergy/AdvReac Type Severity Reaction Status Date / Time No Known Drug Allergies Allergy Verified 11/25/23 14:06 Exam Constitutional Vital Signs, click to edit/add: Last Vital Signs Temp 98 F 11/28/23 13:14 Pulse 75 11/28/23 14:57 Resp 20 11/28/23 13:14 BP 142/81 H 11/28/23 13:14 Pulse Ox 92 L 11/28/23 14:57 O2 Del Method Vapotherm 11/28/23 14:57 O2 Flow Rate 40 11/28/23 14:57 FiO2 100 11/28/23 14:57 Documenting provider has reviewed patient's vital signs: yes General appearance: ill appearing acutely Nutritional appearance: obese HENAZ Common normals: normocephalic Other: Wearing nasal cannula Chest Common normals: inspection of chest normal Chest: symmetrical chest wall rise Respiratory Other: Shallow but non-labored breathing. Diminished breath sounds. Crackles in left base with increased tactile fremitus. No egophony. Expiratory wheezes, most prominent mid sternal region anteriorly. Cardio Rate: regular rate Rhythm: regular rhythm GI Inspection: normal to inspection Back & Pelvis Thoracic spine/upper back: normal to inspection Extremity Common normals: no clubbing, cyanosis or edema Neuro Motor exam: no tremor noted and no fasciculations Psych Appearance: grossly normal Attitude: calm and engaged (Friendly) Speech: normal speech Thought process: normal thought process Thought content: normal thought content Results Laboratory Findings ABG, PT/INR, D-dimer: ABG ABG pH 7.466 (7.350-7.450) H 11/28/23 04:56 ABG pCO2 42.0 mmHg (35.0-45.0) 11/28/23 04:56 ABG pO2 48.1 mmHg (80.0-100.0) L* 11/28/23 04:56 ABG O2 Saturation 87.3 % 11/28/23 04:56 Abnormal lab findings: Abnormal Labs 11/25/23 11/25/23 11/25/23 14:15 14:34 17:15 WBC 17.5 H RBC 4.16 L Hgb Hct MPV 9.0 L Neut % (Auto) 83.6 H Lymph % (Auto) 9.2 L Eos % (Auto) 0.7 L Baso % (Auto) Neut # (Auto) 14.6 H Lymph # (Auto) [place] # (Auto) 1.0 H Abs Immat Gran (auto) 0.13 H Imm/Tot Granulo (auto) 0.7 H ABG pH ABG pO2 59.6 L* ABG HCO3 26.1 H ABG Base Excess BUN Creatinine 1.27 H Est GFR ( Amer) 51 L Est GFR (Non-Af Amer) 42 L Glucose Lactate 2.4 H* 2.2 H* Calcium 11/25/23 11/26/23 11/26/23 20:10 04:07 05:34 WBC 16.3 H RBC 3.59 L Hgb 11.2 L Hct 34.3 L MPV 9.1 L Neut % (Auto) 94.9 H Lymph % (Auto) 2.6 L Eos % (Auto) 0.0 L Baso % (Auto) 0.1 L Neut # (Auto) 15.5 H Lymph # (Auto) 0.4 L [place] # (Auto) Abs Immat Gran (auto) 0.10 H Imm/Tot Granulo (auto) 0.6 H ABG pH ABG pO2 ABG HCO3 ABG Base Excess BUN Creatinine 1.09 H Est GFR ( Amer) Est GFR (Non-Af Amer) 50 L Glucose 167 H Lactate 3.1 H* Calcium 8.2 L 11/27/23 11/28/23 11/28/23 04:20 04:51 04:56 WBC 13.4 H RBC 3.82 L 3.74 L Hgb 11.6 L 11.2 L Hct MPV 9.3 L Neut % (Auto) 90.6 H 80.0 H Lymph % (Auto) 4.5 L 10.4 L Eos % (Auto) 0.0 L 0.0 L Baso % (Auto) 0.1 L Neut # (Auto) 12.1 H Lymph # (Auto) 0.6 L 0.6 L [place] # (Auto) Abs Immat Gran (auto) 0.16 H 0.27 H Imm/Tot Granulo (auto) 1.2 H 4.5 H ABG pH 7.466 H ABG pO2 48.1 L* ABG HCO3 30.3 H ABG Base Excess 6.5 H BUN 24.0 H 27.0 H Creatinine 1.42 H 1.35 H Est GFR ( Amer) 45 L 47 L Est GFR (Non-Af Amer) 37 L 39 L Glucose 246 H 236 H Lactate Calcium Assessment and Plan Assessment and Plan (1) Community acquired pneumonia: Assessment and Plan: 1. Community acquired pneumonia. Working diagnosis. Respiratory panel negative. Large infiltrate with air bronchograms in LLL, with more patchy/GGO in right lung. Currently on Rocephin + Levaquin. I recently had her on Cefdinir + doxycycline - as she was previously on a 3rd generation cephalosporin, will D/C Rocephin and change to Zosyn - this also adds anaerobic coverage. Ordered sputum. Discussed bronchoscopy for BAL, but with her respiratory status, she may end up on the ventilator, so risks > benefits at this time. I reviewed the chest CT films. There appears to be more dynamic airway collapse of the bronchi compared to prior chest CT. Unclear why that is, but it can be seen in obstructive lung disease - question bronchitis as well. She is currently on Vapotherm, but that flow is not great enough to splint open those airways. Discussed trial of BiPAP, not because of respiratory failure, but more to splint open the airways with the positive pressure to see if that helps her clear secretions better. She can use it on/off every 2 hours, or as needed. Start with low pressure 10/11 and see how she does. Continue bronchodilators & budesonide (on Trelegy 100 at home), and SoluMedrol. Will r eassess her tomorrow. 2. Severe sepsis. Secondary to above. 3. Acute hypoxic respiratory failure. Not on supplemental O2 at baseline. Abrupt worsening in respiratory status over the past [address] did not show any definitive pulmonary emboli. Infiltrates appear out of proportion to the degree of hypoxemia. Suspect she still has microscopic damage from the significant COVID-19 pneumonia she had 04/2023 contributing.
--- NOTE | 2023-11-28 17:50 | PM.PLCN ---
History of Present Illness History of Present Illness Chief complaint: LOW OXYGEN [facility], [facility] Medical History (Updated 11/26/23 @ 09:43 by Tapan Barboza MD) Myofascial pain ?M79.18 - Myalgia, other site (ICD-10) Greater trochanteric bursitis ?M70.60 - Trochanteric bursitis, unspecified hip (ICD-10) Osteoarthritis of right hip ?M16.11 - Unilateral primary osteoarthritis, right hip (ICD-10) Chronic, continuous use of opioids ?F11.90 - Opioid use, unspecified, uncomplicated (ICD-10) Lumbar spondylosis ?M47.816 - Spondylosis without myelopathy or radiculopathy, lumbar region (ICD-10) Lumbar postlaminectomy syndrome ?M96.1 - Postlaminectomy syndrome, not elsewhere classified (ICD-10) Lumbar stenosis with neurogenic claudication ?M48.062 - Spinal stenosis, lumbar region with neurogenic claudication (ICD-10) Depression ?F32.A - Depression, unspecified (ICD-10) Chronic low back pain ?M54.50 - Low back pain, unspecified (ICD-10) ?G89.29 - Other chronic pain (ICD-10) Hypoxia ?R09.02 - Hypoxemia (ICD-10) Heart murmur ?R01.1 - Cardiac murmur, unspecified (ICD-10) Chronic obstructive pulmonary disease ?J44.9 - Chronic obstructive pulmonary disease, unspecified (ICD-10) Asthma ?J45.909 - Unspecified asthma, uncomplicated (ICD-10) Surgical History (Updated 11/26/23 @ 09:40 by Tapan Barboza MD) History of lumbar fusion ?Z98.1 - Arthrodesis status (ICD-10) Social History Smoking status: Never smoker Highest level of school completed/degree received: Associate degree: occupational, technical, vocational program Do you think of yourself as: straight/heterosexual Gender Identity: female Meds Home Medications and Allergies Home Medications Medication Instructions Recorded Confirmed Type albuterol sulfate 90 mcg/actuation 2 puff inhalation Q4H PRN 04/10/23 11/25/23 History aerosol inhaler shortness of breath or wheezing fluticasone fur. 200 mcg-umeclid 1 inh inhalation Q24H COPD 04/10/23 11/25/23 History 62.5 mcg-vilant 25 mcg inhalat.powder (Trelegy Ellipta) magnesium oxide 400 mg (241.3 mg 400 mg PO DAILY 04/10/23 11/25/23 History magnesium) tablet omeprazole 20 mg capsule,delayed 20 mg PO BID 04/10/23 11/25/23 History release ipratropium 0.5 mg-albuterol 3 mg 3 ml inhalation Q6H PRN shortness 04/22/23 11/25/23 Rx (2.5 mg base)/3 mL nebulization of breath or wheezing #90 mL soln losartan 50 mg tablet (Cozaar) 50 mg PO BID 08/21/23 11/25/23 History alendronate 35 mg tablet 35 mg PO .weekly 09/14/23 11/25/23 History montelukast 10 mg tablet 10 mg PO DAILY 09/14/23 11/25/23 History pramipexole 0.25 mg tablet 0.25 mg PO QPM 09/14/23 11/25/23 History (Mirapex) amlodipine 5 mg tablet 5 mg PO QDAY 11/25/23 11/25/23 History cholecalciferol (vitamin D3) 25 25 mcg PO QDAY 11/25/23 11/25/23 History mcg (1,000 unit) tablet paroxetine HCl 30 mg tablet 30 mg PO QDAY 11/25/23 11/25/23 History pregabalin 75 mg capsule 75 mg PO BID 11/25/23 11/25/23 History sodium chloride 0.9 % for 3 ml inhalation Q8H 11/25/23 11/25/23 History nebulization solifenacin 10 mg tablet 10 mg PO QDAY 11/25/23 11/25/23 History trazodone 100 mg tablet 100 mg PO .qhs 11/25/23 11/25/23 History Allergies Allergy/AdvReac Type Severity Reaction Status Date / Time No Known Drug Allergies Allergy Verified 11/25/23 14:06 Exam Constitutional Vital Signs, click to edit/add: Last Vital Signs Temp 98 F 11/28/23 13:14 Pulse 75 11/28/23 14:57 Resp 20 11/28/23 13:14 BP 142/81 H 11/28/23 13:14 Pulse Ox 92 L 11/28/23 14:57 O2 Del Method Vapotherm 11/28/23 14:57 O2 Flow Rate 40 11/28/23 14:57 FiO2 100 11/28/23 14:57 Results Laboratory Findings ABG, PT/INR, D-dimer: ABG ABG pH 7.466 (7.350-7.450) H 11/28/23 04:56 ABG pCO2 42.0 mmHg (35.0-45.0) 11/28/23 04:56 ABG pO2 48.1 mmHg (80.0-100.0) L* 11/28/23 04:56 ABG O2 Saturation 87.3 % 11/28/23 04:56 Abnormal lab findings: Abnormal Labs 11/25/23 11/25/23 11/25/23 14:15 14:34 17:15 WBC 17.5 H RBC 4.16 L Hgb Hct MPV 9.0 L Neut % (Auto) 83.6 H Lymph % (Auto) 9.2 L Eos % (Auto) 0.7 L Baso % (Auto) Neut # (Auto) 14.6 H Lymph # (Auto) [place] # (Auto) 1.0 H Abs Immat Gran (auto) 0.13 H Imm/Tot Granulo (auto) 0.7 H ABG pH ABG pO2 59.6 L* ABG HCO3 26.1 H ABG Base Excess BUN Creatinine 1.27 H Est GFR ( Amer) 51 L Est GFR (Non-Af Amer) 42 L Glucose Lactate 2.4 H* 2.2 H* Calcium 11/25/23 11/26/23 11/26/23 20:10 04:07 05:34 WBC 16.3 H RBC 3.59 L Hgb 11.2 L Hct 34.3 L MPV 9.1 L Neut % (Auto) 94.9 H Lymph % (Auto) 2.6 L Eos % (Auto) 0.0 L Baso % (Auto) 0.1 L Neut # (Auto) 15.5 H Lymph # (Auto) 0.4 L [place] # (Auto) Abs Immat Gran (auto) 0.10 H Imm/Tot Granulo (auto) 0.6 H ABG pH ABG pO2 ABG HCO3 ABG Base Excess BUN Creatinine 1.09 H Est GFR ( Amer) Est GFR (Non-Af Amer) 50 L Glucose 167 H Lactate 3.1 H* Calcium 8.2 L 11/27/23 11/28/23 11/28/23 04:20 04:51 04:56 WBC 13.4 H RBC 3.82 L 3.74 L Hgb 11.6 L 11.2 L Hct MPV 9.3 L Neut % (Auto) 90.6 H 80.0 H Lymph % (Auto) 4.5 L 10.4 L Eos % (Auto) 0.0 L 0.0 L Baso % (Auto) 0.1 L Neut # (Auto) 12.1 H Lymph # (Auto) 0.6 L 0.6 L [place] # (Auto) Abs Immat Gran (auto) 0.16 H 0.27 H Imm/Tot Granulo (auto) 1.2 H 4.5 H ABG pH 7.466 H ABG pO2 48.1 L* ABG HCO3 30.3 H ABG Base Excess 6.5 H BUN 24.0 H 27.0 H Creatinine 1.42 H 1.35 H Est GFR ( Amer) 45 L 47 L Est GFR (Non-Af Amer) 37 L 39 L Glucose 246 H 236 H Lactate Calcium Assessment and Plan Assessment and Plan (1) Community acquired pneumonia: Assessment and Plan: 1. Community acquired pneumonia. Working diagnosis. Respiratory panel negative. Large infiltrate with air bronchograms in LLL, with more patchy/GGO in right lung. Currently on Rocephin + Levaquin. I recently had her on Cefdinir + doxycycline - as she was previously on a 3rd generation cephalosporin, will D/C Rocephin and change to Zosyn - this also adds anaerobic coverage. Ordered sputum. Discussed bronchoscopy for BAL, but with her respiratory status, she may end up on the ventilator, so risks > benefits at this time. I reviewed the chest CT films. There appears to be more dynamic airway collapse of the bronchi compared to prior chest CT. Unclear why that is, but it can be seen in obstructive lung disease - question bronchitis as well. She is currently on Vapotherm, but that flow is not great enough to splint open those airways. Discussed trial of BiPAP, not because of respiratory failure, but more to splint open the airways with the positive pressure to see if that helps her clear secretions better. She can use it on/off every 2 hours, or as needed. Start with low pressure 10/11 and see how she does. Continue bronchodilators & budesonide (on Trelegy 100 at home), and SoluMedrol. Will reassess her tomorrow. 2. Severe sepsis. Secondary to above. 3. Acute hypoxic respiratory failure. Not on supplemental O2 at baseline. Abrupt worsening in respiratory status over the past [address] did not show any definitive pulmonary emboli. Infiltrates appear out of proportion to the degree of hypoxemia. Suspect she still has microscopic damage from the significant COVID-19 pneumonia she had 04/2023 contributing.
[2023-11-28] MEDS: PIPERACILLIN SODIUM/TAZOBACTAM 3.375 GM in 0.9 % SODIUM CHLORIDE 50 ML IV (19:59)
[2023-11-28] MEDS: ENOXAPARIN SODIUM 40 MG/0.4 ML SYRINGE SUBQ (19:59)
[2023-11-28] MEDS: PRAMIPEXOLE 0.125 MG TABLET 0.25 MG PO (21:08)
[2023-11-28] MEDS: TRAZODONE HCL 50 MG TABLET 100 MG PO (21:08)
[2023-11-29] VITALS (83 sets, daily range): BP systolic 132–167; BP diastolic 72–89; PULSE 60–96; RESP 10–28; TEMP 36.6–36.8; O2SAT 65–98
[2023-11-29] MEDS: PIPERACILLIN SODIUM/TAZOBACTAM 3.375 GM in 0.9 % SODIUM CHLORIDE 50 ML IV ×3 (03:53→19:33)
[2023-11-29] MEDS: IPRATROPIUM/ALBUTEROL SULFATE 3 ML AMPUL.NEB IH ×6 (03:58→23:57)
[2023-11-29 04:49] LABS: Basophils Absolute Auto 0.1 10^3/uL (0.0-0.1); Basophils Percent Auto 0.8 % (0.2-2.0); Eosinophils Absolute Auto 0.1 10^3/uL (0.0-0.7); Eosinophils Percent Auto 0.9 % (0.9-7.0); Hematocrit 36.5 % (36.0-48.0); Hemoglobin 11.6 g/dL (12.0-16.0); Immature Granulocytes Abs Auto 0.71 10^3/uL (0.00-0.03); Immature Granulocytes Pct Auto 9.5 % (0.0-0.5); Lymphocytes Absolute Auto 0.8 10^3/uL (1.2-3.8); Lymphocytes Percent Auto 10.4 % (20.5-60.0); Mean Corpuscular HGB Conc 31.8 g/dL (29.9-35.2); Mean Corpuscular Hemoglobin 29.9 pg (26.7-34.0); Mean Corpuscular Volume 94.1 fL (81.0-99.0); Mean Platelet Volume 9.4 fL (9.5-13.5); Monocytes Absolute Auto 0.4 10^3/uL (0.3-0.8); Monocytes Percent Auto 5.4 % (1.7-12.0); Neutrophils Absolute Auto 5.5 10^3/uL (1.4-6.5); Platelet Count 301 10^3/uL (150-450); Red Blood Count 3.88 10^6/uL (4.20-5.40); Red Cell Distribution Width 13.2 % (11.0-15.0); White Blood Count 7.5 10^3/uL (4.0-11.0)
[2023-11-29 04:57] LABS: Anion Gap 11.3; BUN Creatinine Ratio 20.2; Calcium 8.7 mg/dL (8.5-10.1); Carbon Dioxide 31.7 mmol/L (21.0-32.0); Chloride 103 mmol/L (98-107); Estimated GFR (African America 50 (>=60); Estimated GFR (Non-African Ame 41 (>=60); Glucose 261 mg/dL (74-106); Sodium 142 mmol/L (136-145)
[2023-11-29] MEDS: METHYLPREDNISOLONE SOD SUCC PF 125 MG/2 ML VIAL 60 MG IVP ×4 (06:05→23:27)
[2023-11-29] MEDS: SODIUM CHLORIDE 3% INHALATION 15 ML NEB 3 ML IH ×3 (07:25→23:57)
[2023-11-29] MEDS: PAROXETINE HCL 20 MG TABLET 30 MG PO (08:22)
[2023-11-29] MEDS: SOLIFENACIN SUCCINATE 10 MG TABLET PO (08:22)
[2023-11-29] MEDS: LOSARTAN POTASSIUM 50 MG TABLET PO ×2 (08:23→20:59)
[2023-11-29] MEDS: MAGNESIUM OXIDE 400 MG TABLET PO (08:23)
[2023-11-29] MEDS: AMLODIPINE BESYLATE 5 MG TABLET PO (08:23)
[2023-11-29] MEDS: OMEPRAZOLE 20 MG CAPSULE.DR PO ×2 (08:23→20:59)
[2023-11-29] MEDS: PREGABALIN 75 MG CAPSULE PO ×2 (08:23→20:59)
[2023-11-29] MEDS: GUAIFENESIN 600 MG TAB.ER.12H PO ×2 (08:23→20:59)
[2023-11-29] MEDS: CHOLECALCIFEROL (VITAMIN D3) 25 MCG/1,000 UNITS TABLET PO (08:23)
[2023-11-29] MEDS: MONTELUKAST SODIUM 10 MG TABLET PO (08:23)
--- NOTE | 2023-11-29 08:33 | PM.PLPN ---
Progress Note: A&P Assessment and Plan (1) Community acquired pneumonia: Assessment and Plan: Changed Rocephin to Zosyn yesterday and kept Levaquin. Significantly more air movement today than yesterday - secretions/consolidations breaking up? Continue pulmonary toilet and hypertonic saline. Spoke with RT, do not feel we need to change saline to Mucomyst at this point. Has suggestion of dynamic airway collapse on chest CT - continue with BiPAP support to splint airways as needed for patient comfort (not for any particular hypoxic or hypercapnic needs). Continue DuoNeb/Pulmicort nebs. Continue SoluMedrol. Sputum sample to be obtained. (2) Severe sepsis: Assessment and Plan: Continue supportive care. (3) Acute hypoxic respiratory failure: Assessment and Plan: Still requiring high FiO2 on Vapotherm & BiPAP, but no further declined from yesterday at least. Subjective Subjective Interval history: She feels a little better than yesterday. She was placed on BiPAP and tolerated it well - said she breathed a little better with it on. Had an improved sleep overnight. No sputum obtained. Exam Constitutional Vital Signs, click to edit/add: Last Vital Signs Temp 97.8 F 11/29/23 07:59 Pulse 82 11/29/23 08:00 Resp 20 11/29/23 08:00 BP 132/76 11/29/23 07:46 Pulse Ox 89 L 11/29/23 08:00 O2 Del Method Vapotherm 11/29/23 07:59 O2 Flow Rate 40 11/29/23 07:59 FiO2 100 11/29/23 07:59 Documenting provider has reviewed patient's vital signs: yes General appearance: cooperative HENMT Other: Currently wearing Vapotherm nasal cannula Chest Common normals: inspection of chest normal Respiratory Other: Improved air movement today. LLL has significantly more rhonchi auscultated. Anteriorly, more rhonchi and less expiratory wheezing. Cardio Rate: regular rate Rhythm: regular rhythm GI Inspection: normal to inspection Extremity Common normals: no clubbing, cyanosis or edema Neuro Sensorium/orientation: awake and alert Motor exam: no tremor noted and no fasciculations Psych Attitude: calm and engaged Speech: normal speech Thought process: normal thought process
--- NOTE | 2023-11-29 10:56 | REH.PTDLY ---
Physical Therapy Daily Note PT Daily Note/Assess Start: 11/28/23 10:47 Freq: Status: Active Protocol: Document 11/29/23 10:20 LUPILLO (Rec: 11/29/23 10:56 LUPILLO [id number]) Physical Therapy Daily Note/Assessment Time In 10:05 Time Out 10:19 Subjective Pt on bipap, but nursing switches over to vapotherm Therapeutic Exercise Minutes (minutes) 5 Therapeutic Exercise Units 0 Therapeutic Exercise Treatment SpO2 at 94%. Instructed in AP, QS, and SLR with legs elevated in recliner 10x ea. With legs lowered instructed in LAQ, marching, and hip abd 10x ea for improved strength. Therapeutic Activity Minutes (minutes) 8 Therapeutic Activity Units 1 Chair Transfer Ability Standby Assistance Therapeutic Activity Comments Sit to stand transfers SBA with pt having one hand on RW and one hand pushing off from chair. Took 3 steps forward and retro 3 times using RW for support. Pt then takes short seated rest break with SpO2 at 90%. Then needs to use commode. Transfers to and from commode taking 3 steps with RW. pt Ind with self care. Total Therapy Minutes 13 Total Physical Therapy Units 1 Daily Note Summary Pt limited with ambulation due to vapotherm, but able to within cords limits. SpO2 drops to 90% with activity with mild SOB. Pt able to recover with seated rest break within 1 min. Pt reports feeling better today than yesterday.
--- NOTE | 2023-11-29 11:05 | PM.PN ---
Progress Note: Subjective Subjective Interval history: Patient feels a little better this am. Started on BiPAP last evening and tolerated it well. Less SOB. Mild cough but not bringing up much. Ambulating without difficulty. Normal appetite and no emesis or diarrhea. No chest pain or palpitations. Exam Constitutional Vital Signs, click to edit/add: Last Vital Signs Temp 97.8 F 11/29/23 07:59 Pulse 77 11/29/23 08:52 Resp 20 11/29/23 08:00 BP 132/76 11/29/23 07:46 Pulse Ox 89 L 11/29/23 08:00 O2 Del Method Vapotherm 11/29/23 07:59 O2 Flow Rate 40 11/29/23 07:59 FiO2 100 11/29/23 07:59 Documenting provider has reviewed patient's vital signs: yes Common normals: no apparent distress, oriented x3 and alert HENMT Common normals: normocephalic Eye Common normals: PERRL and EOMs intact bilaterally Respiratory Auscultation: wheezes and diminished lung sounds Cardio Common normals: regular rate, regular rhythm, no gallops, no murmurs and no rub GI Common normals: Normal to inspection, nondistended, normoactive bowel sounds present and non-tender Extremity Common normals: no pedal edema Progress Note: Objective Labs Labs: Short CBC 11/29/23 Range/Units 04:16 WBC 7.5 (4.0-11.0) 10^3/uL Hgb 11.6 L (12.0-16.0) g/dL Hct 36.5 (36.0-48.0) % Plt Count 301 (150-450) 10^3/uL BMP 11/29/23 04:16 Sodium 142 Potassium 4.0 Chloride 103 Carbon Dioxide 31.7 BUN 26.0 H Creatinine 1.29 H Glucose 261 H Calcium 8.7 Progress Note: A&P Assessment and Plan (1) Severe sepsis: (2) Community acquired pneumonia: (3) Acute hypoxic respiratory failure: (4) Acute infective exacerbation of chronic obstructive airway disease: (5) Hypertension: Qualifiers: Hypertension type: primary hypertension Qualified Code(s): I10 - Essential (primary) hypertension (6) Chronic heart failure with preserved ejection fraction (HFpEF): (7) CAD (coronary artery disease): Plan Patient stable and pulmonology adjusted antibiotics and started BiPAP. SOB improved. Continue antibiotics, steroids, and breathing treatments. Continue PT. Monitor labs and vitals.
[2023-11-29] MEDS: BUDESONIDE 0.5 MG/2 ML AMPULE NEB IH ×2 (11:07→23:57)
--- NOTE | 2023-11-29 11:34 | SWNOTE1 ---
SW spoke with pt to discuss dc needs. Pt lives at home with her son. Pt uses a rollator at home and has a walker as well. Pt is on high flow oxygen and has been wearing bipap at times as well. Pt voices she does well at home getting around. She previosuly had oxygen back in 2009. SW to re-assess daily and check for discharge needs.
--- NOTE | 2023-11-29 11:36 | CM.NOTE ---
Rounds made with Dr. Barboza, pt continues on high flow oxygen. Dr. Lopes also seeing pt for further recommendations.
[2023-11-29] MEDS: LEVOFLOXACIN IN DEXTROSE 5 % 750 MG/150 ML IV.SOLN 100 MG IV (15:04)
--- NOTE | 2023-11-29 15:46 | RESP.RT ---
patient removed from BiPAP and placed on Vapotherm 40 LPM 100%
[2023-11-29] MEDS: ACETAMINOPHEN 500 MG TABLET 1000 MG PO (19:33)
[2023-11-29] MEDS: PRAMIPEXOLE 0.125 MG TABLET 0.25 MG PO (19:33)
[2023-11-29] MEDS: ENOXAPARIN SODIUM 40 MG/0.4 ML SYRINGE SUBQ (19:33)
[2023-11-29] MEDS: TRAZODONE HCL 50 MG TABLET 100 MG PO (20:59)
[2023-11-30] VITALS (44 sets, daily range): BP systolic 138–169; BP diastolic 63–91; PULSE 60–84; RESP 12–25; TEMP 36.5–36.7; O2SAT 88–95
[2023-11-30] MEDS: IPRATROPIUM/ALBUTEROL SULFATE 3 ML AMPUL.NEB IH ×6 (03:07→23:22)
[2023-11-30] MEDS: PIPERACILLIN SODIUM/TAZOBACTAM 3.375 GM in 0.9 % SODIUM CHLORIDE 50 ML IV ×3 (04:02→19:47)
[2023-11-30 04:45] LABS: Basophils Absolute Auto 0.1 10^3/uL (0.0-0.1); Hematocrit 35.3 % (36.0-48.0); Hemoglobin 11.3 g/dL (12.0-16.0); Immature Granulocytes Abs Auto 1.13 10^3/uL (0.00-0.03); Immature Granulocytes Pct Auto 15.4 % (0.0-0.5); Lymphocytes Absolute Auto 0.5 10^3/uL (1.2-3.8); Lymphocytes Percent Auto 7.1 % (20.5-60.0); Mean Corpuscular Volume 93.6 fL (81.0-99.0); Mean Platelet Volume 9.2 fL (9.5-13.5); Monocytes Absolute Auto 0.5 10^3/uL (0.3-0.8); Monocytes Percent Auto 6.4 % (1.7-12.0); Neutrophils Absolute Auto 5.2 10^3/uL (1.4-6.5); Neutrophils Percent Auto 70.1 % (43.0-75.0); Platelet Count 283 10^3/uL (150-450); Red Blood Count 3.77 10^6/uL (4.20-5.40); Red Cell Distribution Width 12.8 % (11.0-15.0); White Blood Count 7.4 10^3/uL (4.0-11.0)
[2023-11-30 04:55] LABS: Anion Gap 10.8; BUN Creatinine Ratio 23.7; Calcium 8.2 mg/dL (8.5-10.1); Carbon Dioxide 31.5 mmol/L (21.0-32.0); Chloride 100 mmol/L (98-107); Estimated GFR (African America 55 (>=60); Estimated GFR (Non-African Ame 46 (>=60); Glucose 271 mg/dL (74-106); Potassium 4.3 mmol/L (3.5-5.1); Sodium 138 mmol/L (136-145)
[2023-11-30] MEDS: METHYLPREDNISOLONE SOD SUCC PF 125 MG/2 ML VIAL 60 MG IVP ×4 (05:46→21:49)
[2023-11-30] MEDS: SODIUM CHLORIDE 0.9% INHALATION 3 ML NEB 6 ML IH (07:06)
--- NOTE | 2023-11-30 07:15 | RESP.RT ---
Titrated down to 70%
--- NOTE | 2023-11-30 07:35 | PM.PLPN ---
Progress Note: A&P Assessment and Plan (1) Community acquired pneumonia: Assessment and Plan: 1. Community acquired pneumonia. Cultures remain negative. On Zosyn + Levaquin - seems to be responding to this combination. With pulmonary toilet, improved air movement, loosening of secretions, but still somewhat difficult to expectorate. Sputum sample? If she worsens, may require bronchoscopy for BAL, but would be at risk for postprocedural vent-dependent respiratory failure. 2. Severe sepsis. Secondary to above. 3. Acute hypoxic respiratory failure. Mild improvement - FiO2 weaned down to 80% on Vapotherm. Can continue PAP support PRN at this time. Anticipate discharge home on supplemental O2. 4. Oral candidiasis. Secondary to inhaled and systemic steroids. Rx Nystatin. 5. Dynamic airway collapse. Noted on CT. ? PAP outpatient. Plan If patient worsens from a pulmonary standpoint, may need to consider transfer to tertiary care facility - I will be going out of town for a week and not be available for pulmonary issues. Otherwise, if patient is discharged, she may F/U with me outpatient ~2 weeks as she is already established in my office. Subjective Subjective Interval history: Slight improvement from yesterday. Continues to tolerate BiPAP well - feels she breathes better with it at night. During day, able to remain on Vapotherm. FiO2 titrated down to 80% and she is maintaining SpO2 in the 90's. Still has scant expectoration. Exam Constitutional Vital Signs, click to edit/add: Last Vital Signs Temp 98.2 F 11/29/23 19:49 Pulse 66 11/30/23 05:10 Resp 12 11/30/23 03:33 BP 140/63 11/30/23 03:33 Pulse Ox 95 11/30/23 07:09 O2 Del Method Vapotherm 11/30/23 07:09 O2 Flow Rate 40 11/30/23 07:09 FiO2 80 11/30/23 07:09 Documenting provider has reviewed patient's vital signs: yes Common normals: no apparent distress HENMT Other: Wearing Vapotherm nasal cannula. Very mild oral candidiasis posterior soft palate. Chest Common normals: inspection of chest normal Chest: symmetrical chest wall rise Respiratory Other: Better air movement, bilateral rhonchi. Cardio Rate: regular rate Rhythm: regular rhythm GI Inspection: normal to inspection Extremity Common normals: no clubbing, cyanosis or edema Neuro Motor exam: no tremor noted and no fasciculations Psych Speech: normal speech Thought process: normal thought process Thought content: normal thought content
[2023-11-30] MEDS: MAGNESIUM OXIDE 400 MG TABLET PO (08:23)
[2023-11-30] MEDS: LOSARTAN POTASSIUM 50 MG TABLET PO ×2 (08:23→21:49)
[2023-11-30] MEDS: SOLIFENACIN SUCCINATE 10 MG TABLET PO (08:23)
[2023-11-30] MEDS: NYSTATIN 500,000 UNIT/5 ML ORAL.SUSP 500000 UNIT PO ×4 (08:23→21:49)
[2023-11-30] MEDS: PAROXETINE HCL 20 MG TABLET 30 MG PO (08:23)
[2023-11-30] MEDS: OMEPRAZOLE 20 MG CAPSULE.DR PO ×2 (08:24→21:50)
[2023-11-30] MEDS: MONTELUKAST SODIUM 10 MG TABLET PO (08:24)
[2023-11-30] MEDS: AMLODIPINE BESYLATE 5 MG TABLET PO (08:24)
[2023-11-30] MEDS: PREGABALIN 75 MG CAPSULE PO ×2 (08:24→21:50)
[2023-11-30] MEDS: GUAIFENESIN 600 MG TAB.ER.12H PO ×2 (08:24→21:50)
[2023-11-30] MEDS: CHOLECALCIFEROL (VITAMIN D3) 25 MCG/1,000 UNITS TABLET PO (08:24)
--- NOTE | 2023-11-30 10:56 | PT.DAILY ---
Physical Therapy Daily Note PT Daily Note/Assess Start: 11/28/23 10:47 Freq: Status: Active Protocol: Document 11/30/23 10:30 [id number] (Rec: 11/30/23 10:56 [id number]) Physical Therapy Daily Note/Assessment Time In/Time Out Time In 10:30 Time Out 10:50 Pain In Pain N/A Pain Out Pain N/A Subjective Subjective Reports breathing is better. Feeling better but feels like legs are getting weak. Therapeutic Exercise Time Therapeutic Exercise Minutes (minutes) 10 Therapeutic Exercise Units 1 Therapeutic Exercise Treatment Therapeutic Exercise Treatment SpO2 at 91- 94%; with patient on 50% Vapo Therm. Instructed in AP, QS, and SLR with legs elevated in recliner 10x ea. With legs lowered instructed in LAQ, marching, and hip abd 10x ea for improved strength. Therapeutic Activity Time Therapeutic Activity Minutes (minutes) 5 Therapeutic Activity Units 0 Therapeutic Activity Treatment Chair Transfer Ability Standby Assistance Therapeutic Activity Comments Sit to stand at 4ww walker SBA . Static stand for endurance 45 sec x 1 before needing seated rest break due to shakiness in legs. 2nd attempt patient was able to go 90 sec and reported legs felt better . SPO2 stated between 91-94 percent on 50 percent Vapo Therm. Does complaint of some SOB and towards end of 90 seconds increased difficulty carrying conversation. Total Physical Therapy Time Total Therapy Minutes 15 Total Physical Therapy Units 1 Summary Daily Note Summary Patient is showing some decreased LE strength, as patient has now been limited with ambulation due to being on Vapo Therm past few days. Breathing issues are improving . Will discuss with PT on increased frequency of POC due to increased weakness. Possible HH PT recommendation depending on how strength improves as breathing issues improve.
[2023-11-30] MEDS: BUDESONIDE 0.5 MG/2 ML AMPULE NEB IH ×2 (11:15→23:22)
--- NOTE | 2023-11-30 11:48 | CM.NOTE ---
Rounds made with Dr. Barboza. Dr. Barboza explained will likely need oxygen at discharge. Diana verbalizes understanding.
--- NOTE | 2023-11-30 12:12 | P.PN_ITS ---
Progress Note: Subjective Subjective Interval history: Patient improved this am. Currently on vapotherm and midl SOB. Still SOB with exertion but slowly improving. Mild cough but not able to bring up sputum. No chest pain or palpitations. Normal appetite and no emesis or diarrhea. Exam Constitutional Vital Signs, click to edit/add: Last Vital Signs Temp 98.1 F 11/30/23 07:33 Pulse 73 11/30/23 11:51 Resp 24 11/30/23 11:51 BP 138/68 11/30/23 07:33 Pulse Ox 92 L 11/30/23 11:51 O2 Del Method Nasal Cannula 11/30/23 11:18 O2 Flow Rate 6 11/30/23 11:18 FiO2 50 11/30/23 10:39 Documenting provider has reviewed patient's vital signs: yes Common normals: no apparent distress, oriented x3 and alert HENMT Common normals: normocephalic Eye Common normals: PERRL and EOMs intact bilaterally Respiratory Common normals: normal respiratory effort and clear to auscultation bilaterally Cardio Common normals: regular rate, regular rhythm, no gallops, no murmurs and no rub GI Common normals: Normal to inspection, nondistended, normoactive bowel sounds pr esent and non-tender Extremity Common normals: normal to inspection Progress Note: Objective Labs Labs: Short CBC 11/30/23 Range/Units 04:28 WBC 7.4 (4.0-11.0) 10^3/uL Hgb 11.3 L (12.0-16.0) g/dL Hct 35.3 L (36.0-48.0) % Plt Count 283 (150-450) 10^3/uL BMP 11/30/23 04:28 Sodium 138 Potassium 4.3 Chloride 100 Carbon Dioxide 31.5 BUN 28.0 H Creatinine 1.18 H Glucose 271 H Calcium 8.2 L Progress Note: A&P Assessment and Plan (1) Severe sepsis: (2) Community acquired pneumonia: (3) Acute hypoxic respiratory failure: (4) Acute infective exacerbation of chronic obstructive airway disease: (5) Hypertension: Qualifiers: Hypertension type: primary hypertension Qualified Code(s): I10 - Essential (primary) hypertension (6) Chronic heart failure with preserved ejection fraction (HFpEF): (7) CAD (coronary artery disease): Plan Patient continues to slowly improve. Continue antibiotics, steroids, and breathing treatments. Wean O2 as tolerated. Likely will need oxygen upon discharge.
[2023-11-30] MEDS: ACETAMINOPHEN 500 MG TABLET 1000 MG PO (12:25)
--- NOTE | 2023-11-30 13:53 | SWNOTE1 ---
Graciela need for home oxygen at discharge, no preference on DME company.
[2023-11-30] MEDS: SODIUM CHLORIDE 3% INHALATION 15 ML NEB 3 ML IH ×2 (15:50→23:22)
[2023-11-30] MEDS: ENOXAPARIN SODIUM 40 MG/0.4 ML SYRINGE SUBQ (19:47)
[2023-11-30] MEDS: PRAMIPEXOLE 0.125 MG TABLET 0.25 MG PO (19:47)
[2023-11-30] MEDS: TRAZODONE HCL 50 MG TABLET 100 MG PO (21:50)
[2023-12-01] VITALS (27 sets, daily range): BP systolic 147–164; BP diastolic 70–86; PULSE 63–118; RESP 12–22; TEMP 36.8; O2SAT 82–97
[2023-12-01] MEDS: PIPERACILLIN SODIUM/TAZOBACTAM 3.375 GM in 0.9 % SODIUM CHLORIDE 50 ML IV ×3 (03:43→20:59)
[2023-12-01] MEDS: IPRATROPIUM/ALBUTEROL SULFATE 3 ML AMPUL.NEB IH ×6 (03:55→23:02)
[2023-12-01 04:30] LABS: Hematocrit 34.8 % (36.0-48.0); Hemoglobin 11.2 g/dL (12.0-16.0); Mean Corpuscular HGB Conc 32.2 g/dL (29.9-35.2); Mean Corpuscular Hemoglobin 29.8 pg (26.7-34.0); Mean Corpuscular Volume 92.6 fL (81.0-99.0); Platelet Count 290 10^3/uL (150-450); Red Blood Count 3.76 10^6/uL (4.20-5.40); Red Cell Distribution Width 12.9 % (11.0-15.0); White Blood Count 8.4 10^3/uL (4.0-11.0)
[2023-12-01 04:41] LABS: Anion Gap 7.6; BUN Creatinine Ratio 22.8; Calcium 8.2 mg/dL (8.5-10.1); Carbon Dioxide 30.1 mmol/L (21.0-32.0); Chloride 99 mmol/L (98-107); Estimated GFR (African America 53 (>=60); Estimated GFR (Non-African Ame 44 (>=60); Glucose 315 mg/dL (74-106); Potassium 3.7 mmol/L (3.5-5.1); Sodium 133 mmol/L (136-145)
[2023-12-01] MEDS: METHYLPREDNISOLONE SOD SUCC PF 125 MG/2 ML VIAL 60 MG IVP ×4 (05:42→21:38)
[2023-12-01] MEDS: NYSTATIN 500,000 UNIT/5 ML ORAL.SUSP 500000 UNIT PO ×4 (05:42→21:02)
[2023-12-01 06:03] LABS: Atypical Lymphocytes Abs Man 0.75; Lymphocytes Absolute Manual 0.67 10^3/uL (1.20-3.80); Monocytes Absolute Manual 0.75 10^3/uL (0.30-0.80)
[2023-12-01] MEDS: SODIUM CHLORIDE 3% INHALATION 15 ML NEB 3 ML IH ×2 (06:56→23:02)
[2023-12-01] MEDS: OMEPRAZOLE 20 MG CAPSULE.DR PO ×2 (08:27→21:02)
[2023-12-01] MEDS: CHOLECALCIFEROL (VITAMIN D3) 25 MCG/1,000 UNITS TABLET PO (08:27)
[2023-12-01] MEDS: PAROXETINE HCL 20 MG TABLET 30 MG PO (08:27)
[2023-12-01] MEDS: LOSARTAN POTASSIUM 50 MG TABLET PO ×2 (08:27→21:02)
[2023-12-01] MEDS: MAGNESIUM OXIDE 400 MG TABLET PO (08:28)
[2023-12-01] MEDS: AMLODIPINE BESYLATE 5 MG TABLET PO (08:28)
[2023-12-01] MEDS: PREGABALIN 75 MG CAPSULE PO ×2 (08:28→21:02)
[2023-12-01] MEDS: SOLIFENACIN SUCCINATE 10 MG TABLET PO (08:28)
[2023-12-01] MEDS: GUAIFENESIN 600 MG TAB.ER.12H PO ×2 (08:28→21:02)
[2023-12-01] MEDS: MONTELUKAST SODIUM 10 MG TABLET PO (08:28)
--- NOTE | 2023-12-01 09:28 | SWNOTE1 ---
JAZMIN spoke with pt in regards to home health. JAZMIN let pt know that it would be beneficial to have HH therapy come in for a short time to help keep strength up. At this time pt is refusing HH and voiced she does not feel she needs it. JAZMIN advised pt to continue doing exercises at home and let pt know if she gets home and changes her mind to contact her PCP and they can set up from office. Pt will need home oxygen, plan is for discharge tomorrow. JAZMIN did review options again of DME companies and pt does not have a preference. JAZMIN to send to [facility] as they take pt's insurance.
[2023-12-01] MEDS: BUDESONIDE 0.5 MG/2 ML AMPULE NEB IH ×2 (10:33→23:02)
--- NOTE | 2023-12-01 11:34 | CM.NOTE ---
Rounds made with Dr. Barboza, discussed with pt about discharge to home with home oxygen. Pt does not have a preference of oxygen companies, RN will do walk test today.
[2023-12-01 11:38] LABS: Glucometer 369 mg/dL (74-106)
[2023-12-01] MEDS: INSULIN ASPART 300 UNIT/3 ML PEN SUBQ ×3 (11:47→21:21)
--- NOTE | 2023-12-01 14:13 | P.PN_ITS ---
Progress Note: Subjective Subjective Interval history: Patient continues to improve. Weaned off of vapotherm and currently on NC. Mild SOB with exertion and getting better. Mild cough but getting better. No chest pain or palpitations. Normal appetite and no emesis or diarrhea. Exam Constitutional Vital Signs, click to edit/add: Last Vital Signs Temp 98.2 F 12/01/23 12:00 Pulse 76 12/01/23 14:00 Resp 16 12/01/23 12:00 BP 147/72 H 12/01/23 12:00 Pulse Ox 93 L 12/01/23 14:00 O2 Del Method Nasal Cannula 12/01/23 12:00 O2 Flow Rate 3 12/01/23 12:00 FiO2 50 12/01/23 12:00 Common normals: no apparent distress, oriented x3 and alert HENMT Common normals: normocephalic Eye Common normals: PERRL and EOMs intact bilaterally Respiratory Common normals: normal respiratory effort and clear to auscultation bilaterally Cardio Common normals: regular rate, regular rhythm, no gallops, no murmurs and no rub GI Common normals: Normal to inspection, nondistended, normoactive bowel sounds present and non-tender Extremity Common normals: no pedal edema Progress Note: Objective Labs Labs: Short CBC 12/01/23 Range/Units 04:18 WBC 8.4 (4.0-11.0) 10^3/uL Hgb 11.2 L (12.0-16.0) g/dL Hct 34.8 L (36.0-48.0) % Plt Count 290 (150-450) 10^3/uL BMP 12/01/23 04:18 Sodium 133 L Potassium 3.7 Chloride 99 Carbon Dioxide 30.1 BUN 28.0 H Creatinine 1.23 H Glucose 315 H Calcium 8.2 L Progress Note: A&P Assessment and Plan (1) Severe sepsis: (2) Community acquired pneumonia: (3) Acute hypoxic respiratory failure: (4) Acute infective exacerbation of chronic obstructive airway disease: (5) Hypertension: Qualifiers: Hypertension type: primary hypertension Qualified Code(s): I10 - Essential (primary) hypertension (6) Chronic heart failure with preserved ejection fraction (HFpEF): (7) CAD (coronary artery disease): Plan Patient continues to improve and off high flow oxygen. On 3 LPM at time of exam. Continue to wean oxygen. Increase ambulation. Continue antibiotics, steroids, and breathing treatments. BS increased and add sliding scale. Nursing will perform walk test to qualify for home oxygen. visitor services representative will arrange for home O2 with portability. If continue to improve likely ready for discharge in am.
[2023-12-01] MEDS: LEVOFLOXACIN IN DEXTROSE 5 % 750 MG/150 ML IV.SOLN 100 MG IV (14:29)
[2023-12-01 16:26] LABS: Glucometer 320 mg/dL (74-106)
--- NOTE | 2023-12-01 16:26 | SWNOTE1 ---
JAZMIN spoke with Eugen[facility] and oxygen is all set. Tank was taken to pt and informed to call [facility] once she is home
--- NOTE | 2023-12-01 16:35 | PT.DAILY ---
Physical Therapy Daily Note PT Daily Note/Assess Start: 11/28/23 10:47 Freq: Status: Active Protocol: Document 12/01/23 16:27 MICHEL (Rec: 12/01/23 16:35 MICHEL [id number]) Physical Therapy Daily Note/Assessment Time In/Time Out Time In 16:10 Time Out 16:25 Pain In Pain N/A Pain Out Pain N/A Subjective Subjective Feeling much better. Going home tomorrow. Therapeutic Activity Time Therapeutic Activity Minutes (minutes) 10 Therapeutic Activity Units 1 Therapeutic Activity Treatment Chair Transfer Ability Independent Therapeutic Activity Comments Gait with 4 WW supervision with O2 follow. Patient ambulated greater than 300' with SPO2 levels staying above 92 percent on 2 LO2. Total Physical Therapy Time Total Therapy Minutes 10 Total Physical Therapy Units 1 Summary Daily Note Summary Patient is much improved with ambulation ability this date. Up independently in room without issues. Able to ambulate community distance with O2. Improved strength. OP PT could be beneficial to patient, and at this time patient is deferring Home Health services.
[2023-12-01] MEDS: TRAZODONE HCL 50 MG TABLET 100 MG PO (21:01)
[2023-12-01] MEDS: PRAMIPEXOLE 0.125 MG TABLET 0.25 MG PO (21:02)
[2023-12-01] MEDS: ENOXAPARIN SODIUM 40 MG/0.4 ML SYRINGE SUBQ (21:03)
[2023-12-01 21:30] LABS: Glucometer 213 mg/dL (74-106)
[2023-12-02] VITALS (16 sets, daily range): BP systolic 138–157; BP diastolic 75–80; PULSE 74–103; RESP 20–22; TEMP 36.6–36.9; O2SAT 91–97
[2023-12-02] MEDS: IPRATROPIUM/ALBUTEROL SULFATE 3 ML AMPUL.NEB IH ×3 (03:41→10:26)
[2023-12-02 04:49] LABS: Basophils Absolute Auto 0.1 10^3/uL (0.0-0.1); Basophils Percent Auto 0.6 % (0.2-2.0); Hematocrit 35.8 % (36.0-48.0); Hemoglobin 11.3 g/dL (12.0-16.0); Immature Granulocytes Abs Auto 1.63 10^3/uL (0.00-0.03); Immature Granulocytes Pct Auto 20.1 % (0.0-0.5); Lymphocytes Absolute Auto 0.6 10^3/uL (1.2-3.8); Lymphocytes Percent Auto 6.8 % (20.5-60.0); Mean Corpuscular HGB Conc 31.6 g/dL (29.9-35.2); Mean Corpuscular Hemoglobin 29.4 pg (26.7-34.0); Mean Corpuscular Volume 93.2 fL (81.0-99.0); Mean Platelet Volume 9.1 fL (9.5-13.5); Monocytes Absolute Auto 0.5 10^3/uL (0.3-0.8); Monocytes Percent Auto 6.5 % (1.7-12.0); Neutrophils Absolute Auto 5.3 10^3/uL (1.4-6.5); Platelet Count 290 10^3/uL (150-450); Red Blood Count 3.84 10^6/uL (4.20-5.40); Red Cell Distribution Width 13.2 % (11.0-15.0); White Blood Count 8.1 10^3/uL (4.0-11.0)
[2023-12-02 05:01] LABS: Anion Gap 8.9; BUN Creatinine Ratio 21.8; Calcium 8.2 mg/dL (8.5-10.1); Carbon Dioxide 32.3 mmol/L (21.0-32.0); Chloride 102 mmol/L (98-107); Estimated GFR (African America 55 (>=60); Estimated GFR (Non-African Ame 45 (>=60); Glucose 275 mg/dL (74-106); Potassium 4.2 mmol/L (3.5-5.1); Sodium 139 mmol/L (136-145)
[2023-12-02] MEDS: METHYLPREDNISOLONE SOD SUCC PF 125 MG/2 ML VIAL 60 MG IVP ×2 (05:25→11:47)
[2023-12-02] MEDS: PIPERACILLIN SODIUM/TAZOBACTAM 3.375 GM in 0.9 % SODIUM CHLORIDE 50 ML IV (05:25)
[2023-12-02] MEDS: NYSTATIN 500,000 UNIT/5 ML ORAL.SUSP 500000 UNIT PO ×2 (05:26→11:47)
[2023-12-02] MEDS: INSULIN ASPART 300 UNIT/3 ML PEN SUBQ ×2 (08:00→11:46)
[2023-12-02] MEDS: LOSARTAN POTASSIUM 50 MG TABLET PO (08:01)
[2023-12-02] MEDS: SOLIFENACIN SUCCINATE 10 MG TABLET PO (08:01)
[2023-12-02] MEDS: OMEPRAZOLE 20 MG CAPSULE.DR PO (08:01)
[2023-12-02] MEDS: PREGABALIN 75 MG CAPSULE PO (08:01)
[2023-12-02] MEDS: CHOLECALCIFEROL (VITAMIN D3) 25 MCG/1,000 UNITS TABLET PO (08:01)
[2023-12-02] MEDS: GUAIFENESIN 600 MG TAB.ER.12H PO (08:01)
[2023-12-02] MEDS: PAROXETINE HCL 20 MG TABLET 30 MG PO (08:01)
[2023-12-02] MEDS: MONTELUKAST SODIUM 10 MG TABLET PO (08:01)
[2023-12-02] MEDS: AMLODIPINE BESYLATE 5 MG TABLET PO (08:01)
[2023-12-02] MEDS: MAGNESIUM OXIDE 400 MG TABLET PO (08:42)
--- NOTE | 2023-12-02 09:20 | P.DS_ITS ---
DS: Providers Provider Date of admission: 11/25/23 17:32 Primary care physician: Shaikh Lev MD Admitting clinician: Tapan Barboza Consults: 11/25/23 19:11 Physical Therapy Eval and Treat Routine Reason for consultation: Weakness 11/25/23 19:12 Occupational Therapy Eval and Treat Routine Reason for consultation: Weakness 11/28/23 11:15 Consult to Pulmonology Routine Consulting Provider: Corbin Lopes Reason for consultation: Pneumonia, hypoxia Has provider been notified: Yes Discharging clinician: Magy Ross DS: Diagnosis Discharge Diagnosis (1) Severe sepsis: (2) Community acquired pneumonia: Qualifiers: Laterality: left Lung location: lower lobe of lung Qualified Code(s): J18.9 - Pneumonia, unspecified organism (3) Acute hypoxic respiratory failure: (4) Acute infective exacerbation of chronic obstructive airway disease: (5) Hypertension: Qualifiers: Hypertension type: primary hypertension Qualified Code(s): I10 - Essential (primary) hypertension (6) Chronic heart failure with preserved ejection fraction (HFpEF): (7) CAD (coronary artery disease): Qualifiers: Coronary Disease-Associated Artery/Lesion type: unspecified vessel or lesion type [place] vs. transplanted heart: unspecified whether [place] or transplanted heart Associated angina: without angina Qualified Code(s): I25.10 - Atherosclerotic heart disease of [place] coronary artery without angina pectoris DS: Summary Hospital Course Hospital Course: 68 y/o female with a history of COPD to ER with SOB. C/o worsening SOB for 3-4 days. Frequent cough productive of sputum. Increased fatigue. C/o chills but no fever. Pulse ox at home in 80s and to ER. WBC elevated at 17.5. Lactate elevated and BP low. Chest x-ray with pneumonia and CTA negative for PE but again showed pneumonia. Admitted for treatment. required BIPAP, vapotherm, now on 2L NC oxygen. Will be discharged home with continuous oxygen for her to wear at all times. Will also be discharged home on Levaquin x 5 days, Augmentin x 7 days and 35 day prednisone taper. Sputum culture positive for yeast, given 7 days of Nystatin. She has close follow up with Dr. Ohara and Dr. Lopes. She is to return to the hospital with any worsening signs or symptoms. WBC's at the time of discharge 8.1. Status at Discharge Overall status at discharge: patient is progressing back to baseline Time Spent with Patient Time attestation: Total time spent providing and/or coordinating discharge services: Time spent: greater than 30 minutes Exam Narrative Exam Narrative: General: Patient is alert, and oriented to person, place and time with normal affect, proper hygiene Skin: no visible rashes, or ulcers Head: atraumatic, acephalic Eyes: PERRLA, no nystagmus present, conjunctiva clear, no scleral icterus Ears: normal Tympanic Membrane, normal gross auditory acuity Heart: Normal rate and rhythm, no murmurs/rubs/gallops Lungs: audible wheezes, no crackles and diminished breath sounds all lung granger Abdomen: Normal audible bowel sounds, no distension, No palpable masses, no organomegaly, no rebound/guarding/ or rigidity Musculoskeletal: no swelling bilateral lower extremities Constitutional Vital Signs, click to edit/add: Last Vital Signs Temp 98.5 F 12/02/23 07:57 Pulse 82 12/02/23 07:57 Resp 20 12/02/23 07:57 BP 157/80 H 12/02/23 07:57 Pulse Ox 91 L 12/02/23 07:57 O2 Del Method Nasal Cannula 12/02/23 07:57 O2 Flow Rate 2 12/02/23 07:57 FiO2 50 12/01/23 15:18 DS: Data Data Completed and Pending Labs on day of discharge: Labs from last 24 hours 12/02/23 12/01/23 12/01/23 04:38 21:20 16:09 WBC 8.1 RBC 3.84 L Hgb 11.3 L Hct 35.8 L MCV 93.2 MCH 29.4 MCHC 31.6 RDW 13.2 Plt Count 290 MPV 9.1 L Neut % (Auto) 66.0 Lymph % (Auto) 6.8 L [place] % (Auto) 6.5 Eos % (Auto) 0.0 L Baso % (Auto) 0.6 Neut # (Auto) 5.3 Lymph # (Auto) 0.6 L [place] # (Auto) 0.5 Eos # (Auto) 0.0 Baso # (Auto) 0.1 Abs Immat Gran (auto) 1.63 H Imm/Tot Granulo (auto) 20.1 H Sodium 139 Potassium 4.2 Chloride 102 Carbon Dioxide 32.3 H Anion Gap 8.9 BUN 26.0 H Creatinine 1.19 H Est GFR ( Amer) 55 L Est GFR (Non-Af Amer) 45 L BUN/Creatinine Ratio 21.8 Glucose 275 H Calcium 8.2 L POC Glucose 213 H 320 H 12/01/23 11:27 WBC RBC Hgb Hct MCV MCH MCHC RDW Plt Count MPV Neut % (Auto) Lymph % (Auto) [place] % (Auto) Eos % (Auto) Baso % (Auto) Neut # (Auto) Lymph # (Auto) [place] # (Auto) Eos # (Auto) Baso # (Auto) Abs Immat Gran (auto) Imm/Tot Granulo (auto) Sodium Potassium Chloride Carbon Dioxide Anion Gap BUN Creatinine Est GFR ( Amer) Est GFR (Non-Af Amer) BUN/Creatinine Ratio Glucose Calcium POC Glucose 369 H Preliminary micro results at discharge 11/29/23 16:55 Sputum Culture - Preliminary Sputum - Expectorated Sputum 11/29/23 16:55 - Preliminary Sputum - Expectorated Sputum Discharge Plan Discharge Disposition: Home, Self-Care Discharge Medications: New nystatin 100,000 unit/mL Suspension 500,000 unit PO QID 7 Days Qty: 140 0RF guaifenesin [Mucus Relief ER] 600 mg Tablet Extended Release 12hr 600 mg PO BID 10 Days Qty: 20 0RF levofloxacin 750 mg tablet 750 mg PO DAILY 5 Days Qty: 5 0RF amoxicillin-pot clavulanate [Augmentin] 500-125 mg tablet 1 tab PO Q12H 7 Days Qty: 14 0RF prednisone 10 mg tablet 10 mg PO DAILY 15 Days Qty: 35 0RF Rx Instructions: 40mg daily x 5 days, then 20mg daily x 5 days, then 10mg daily x 5 days, then stop Continued magnesium oxide 400 mg (241.3 mg magnesium) tablet 400 mg PO DAILY Rx Instructions: WITH FOOD omeprazole 20 mg capsule,delayed release(DR/EC) 20 mg PO BID albuterol sulfate 90 mcg/actuation HFA aerosol inhaler 2 puff INHALATION Q4H PRN (Reason: shortness of breath or wheezing) Trelegy Ellipta 200-62.5-25 mcg blister with device 1 inh INHALATION Q24H ipratropium-albuterol 0.5 mg-3 mg(2.5 mg base)/3 mL solution for nebulization 3 ml inhalation Q6H PRN (Reason: shortness of breath or wheezing) Qty: 90 0RF losartan [Cozaar] 50 mg tablet 50 mg PO BID alendronate 35 mg tablet 35 mg PO .weekly pramipexole [Mirapex] 0.25 mg tablet 0.25 mg PO QPM Rx Instructions: administer 2 - 3 hours before bedtime montelukast 10 mg tablet 10 mg PO DAILY amlodipine 5 mg tablet 5 mg PO QDAY cholecalciferol (vitamin D3) 25 mcg (1,000 unit) tablet 25 mcg PO QDAY paroxetine HCl 30 mg tablet 30 mg PO QDAY pregabalin 75 mg capsule 75 mg PO BID sodium chloride 0.9 % solution for nebulization 3 ml INHALATION Q8H solifenacin 10 mg tablet 10 mg PO QDAY trazodone 100 mg tablet 100 mg PO .qhs Activity: ambulate only with your walker and wear oxygen at all times Diet: diabetic diet Patient Instructions: Prednisone (By mouth), Nystatin (By mouth), Amoxicillin/Clavulanate Potassium (By mouth), Levofloxacin (By mouth), Guaifenesin/Phenylephrine (By mouth), Using Oxygen at Home (GEN), COPD (Chronic Obstructive Pulmonary Disease) (GEN) Residential Child Care Counselor/Health Care Aide Instructions: Discharge with home oxygen from [facility], phone number is [phone], please contact them once you are discharged and have arrived home. Forms: Portal Instructions Follow Up Appointments: Keep scheduled appointment with Dr Fowler, call monday to get follow up with Dr. Lopes Discharge Date/Time: 12/02/23 14:15
[2023-12-02] MEDS: BUDESONIDE 0.5 MG/2 ML AMPULE NEB IH (10:26)
[2023-12-02 11:18] LABS: Glucometer 228 mg/dL (74-106)
[2023-12-02] MEDS: ACETAMINOPHEN 500 MG TABLET 1000 MG PO (11:48)
--- NOTE | 2023-12-04 15:47 | CM.DCFOLLOWU ---
Person spoke with: Diana How are you feeling? Much better How is your pain? No pain Did you understand your discharge instructions? Yes Do you have any questions about your discharge instructions? No Were you given any prescriptions at discharge? Yes Were you able to get your prescriptions filled? Yes Do you understand how to take your medications as ordered? Yes Do you have any questions about your follow up appointment and do you plan to keep your follow up appointment? No they are scheduled for this week Is there anything else that you would like to discuss? Yes I would not recommend [facility]. They did not show up until Monday with my oxygen, so my other tank ran out. I had to go without until Monday evening. They told her she was not the only patient and there was nothing they could do about it when she called. Questions/Comments/Concerns/Other:
== END 2023-12-02 14:15 | disposition home or self-care (01) | DRG 871 ==
LOC: ER 17:13 → ICU 17:38 → MS 11-26 16:40 → ICU 11-28 18:10
PROVIDERS: Family Medicine; Internal Medicine; Admitting Provider Family Medicine; Emergency Provider Emergency Medicine; PCP Internal Medicine; Visit Provider Family Medicine
DX: A41.9 Sepsis, unspecified organism (principal); J18.9 Pneumonia, unspecified organism; J96.01 Acute respiratory failure with hypoxia; J44.0 Chronic obstructive pulmonary disease with (acute) lower respiratory infection; J44.1 Chronic obstructive pulmonary disease with (acute) exacerbation; B37.0 Candidal stomatitis; I11.0 Hypertensive heart disease with heart failure; I50.32 Chronic diastolic (congestive) heart failure; R65.20 Severe sepsis without septic shock; I25.10 Atherosclerotic heart disease of native coronary artery without angina pectoris; F32.A Depression, unspecified; Z77.22 Contact with and (suspected) exposure to environmental tobacco smoke (acute) (chronic); Z98.1 Arthrodesis status; Z79.899 Other long term (current) drug therapy; Z86.16 Personal history of COVID-19
CPT/HCPCS: 0202U; 36415; 36600; 71045; 71275; 80048; 82805; 82948; 83605; 83880; 84484; 85007; 85025; 85027; 87040; 87070; 87102; 87106; 87116; 87205; 87206; 87804; 87811; 93005; 94640; 94660; 94667; 94668; 94761; 94799; 96365; 96366; 96367; 96368; 96372; 96375; 96376; 97110; 97161; 97165; 97530; 97535; 99285; G0463; J0696; J1650; J2543; J2930; Q9967

== ENCOUNTER 2023-12-05 09:50 | Emergency (ER) | payer OTHER, SELFPAY ==
[2023-12-05] VITALS (10 sets, daily range): BP systolic 101–131; BP diastolic 60–78; PULSE 61–70; RESP 20; TEMP 37.1; O2SAT 95–96; BMI 37.9
--- OUTSIDE RECORDS SUMMARY | 2023-12-05 10:01 | XMS_ITS | CCD ---
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 Name Role Phone Steph Collier Attending Provider Unavailable Chantel Rainey Primary Care Provider Unavailabl e JoanaHerberth Attending Provider Unavailable Unavailable Primary Care Provider Unavailabl e UNKNOWN, PHYSICIAN Referring Unavailable JOO LINN Attending Unavailable JOO LINN Admitting Unavailable UNKNOWN, PHYSICIAN Primary Care Unavailable Rena Hurd Unavailable Joana, Herberth Unavailable Gato Domingo Unavailable Steph Collier Attending Provider MD Gato Domingo Attending Provider MD Nicky Ohara Primary Care Provider Gilma Trent Unavailable JOANA, HERBERTH Attending Unavailable JOANA, HERBERTH Admitting Unavailable FAWWAD, SAUNDERS H Primary Care Unavailable HERBERTH BERNARD Consulting Unavailable JOHNY ., BO Admitting Unavailable FAWWAD, SAUNDERS H Primary Care Unavailable FAWWAD, SAUNDERS H Consulting Unavailable JOHNY Rendon, BO Attending Unavailable BRITTANY GALDAMEZ Consulting Unavailable ISABEL ., DR SATNIAGO Admitting Unavailabl e KARBLANCA ., DR SANTIAGO Attending Unavailabl e KARBLANCA ., DR SANTIAGO Consulting Unavailabl e FAWANASTASIA, SAUNDERS H Primary Care Unavailable MOAPA, DR BRITTANY Elizondo Consulting Unavailable DARWIN, DR [...] Admitting Unavailabl e FAWWAD, SAUNDERS Attending Unavailable FAWWAD, SAUNDERS Attending Unavailable Giedraitis , Andrius Johnson Attending Unavailable Giedraitis , Andrius Vytjulito Attending Unavailable Gilorenzaitis , Andrius Vricardo Attending Unavailable Unavailable Unavailable Unavailable Allergies Allergy Classification Reported Allergen(s) Allergy Type Date of Onset Reaction(s) Facility (3 sources) fentaNYL; Translations: [fentanyl] Drug Allergy 07-07-20 [facility] (2 sources) linezolid; Translations: [LINEZOLID] Drug Allergy 03-17-20 20 [facility] (20 sources) Vancomycin; Translations: [VANCOMYCIN] Drug Allergy 03-17-20 Unknown [facility] (11 sources) DENIES METAL SENSITITIVITY Propensity to adverse reactions Unknown [employer] Other Medications Current Medications Medication Drug Class(es) [...] (3 sources) Histamine-2 Receptor Antagonist Start: End: 023 take 40 mg by mouth at bedtime [...] each nostril Nasally Once a day Active Rbhzpdwdcuc-Ylugzhtuk-Uk lanter (1 source) Star t: 02-0 2-20 23 Phstqrqjjkm-Lelwpkbue-Z ilanter (Trelegy Ellipta) 200-62.5-25 mcg blister with [...] tablet (9 sources) Thiazide Diuretic Star t: 2- 23 take 25 mg by mouth once daily Hydrochlorothiazide Active 25 MG PO Daily December 08, 2022 12:00am 200 actuat ipratropium bromide 0.017 mg/actuat metered dose inhaler (6 sources) Anticholinergic Star t: 1- 17 take 1 puff(s) by inhalation twice daily Ipratropium [place] Active 2 PUFF Inhalation Twice daily July [...] 2017 10:21am take 1 capsule by mo [facility] every twelve hours Omeprazole 20 MG 1 [...] Active Start: 08-05-2022 take 1 tablet [address] [facility] every twelve hours Potassium Chloride ER [...] Interpretation Reference Range Facility Follow-Upon 05-08-2023 Follow-Up [id number] Nell Champion 1955 F Date Provider Department Center 05/08/2023 271-MANI SCALES CARD [facility] Family History Problem Relation Age of Onset Heart failure Mother Heart disease Father Family Status - Relation Status Age at Mother Father Level of Service:42119 IN OFFICE/OUTPATIENT ESTABLISHED LOW MDM 20-29 MIN [facility] 05-03-2023 36 PATIENT CALLED TO CANCEL SURGERY FOR July D/T HER LUNG DISEASE. WILL CALL TO RESCHEDULE WHEN FULLY HEALED FROM LUNGS AND CLEARED//[facility] 3604-19-2023 36 FYI CALLED PATIENT T O F/U ON MEDICAL AND PULMONARY CLEARANCES FOR R ELZA ON 05/19 AND PRE-OP RIYA'T 04/27 WITH US AND PATIENT IS CURRENTLY INPATIENT SINCE LAST WEEK D/T COVID AND PULMONARY ISSUES, SHE WILL CALL US ON 04/25 WITH PROGRESS, PLEASE ADVISE IF WE SHOULD CANCEL SURGERY FOR NOW..THANKS//[facility] SYMPTOMATIC COVID-19 ANTIGEN on 04-04-2023 EUA Statement SEE BELOW Normal [facility] Comment on above: Result Comment: This [...] sooner. Performed By: #### C VDAGS #### [facility] [address] [place] [address] Dr. Shayne Roldan SARS-CoV-2 (COVID-19) RNA KAYLEE+probe Ql (Unsp spec) Positive Abnormal NEGATIVE [facility] Comment on above: Performed By: #### C VDAGS #### [facility] [address] [address] [address] Shayne Roldan XR LSPINE 2_3 VIEWSon [...] STEPH GRANADOS Date: 2023-03-24 12:52 Normal [facility] PTH INTACTon 02-27-2023 PTH, Intact 87 pg/mL Critically high 15-65 [facility] Comment on above: Performed By: #### P THINT #### [facility] [address] [place] [address] Dr. Shayne Roldan HEMOGRAM AND PLATELon 2022 Hematocrit (Bld) [Volume fraction] 44.4 % Normal 36.0-48.0 [facility] Comment on above: Performed By: #### H H #### [facility] [address] [place] [address] Dr. Shayne Roldan Hemoglobin (Bld) [Mass/Vol] 14.5 g/dL Normal 12.0-16.0 [facility] Comment on above: Performed By: #### H H #### [facility] [address] [address] [address] Shayne Roldan MCH (RBC) [Entitic mass] 30.3 pg Normal 26.7-34.0 [facility] Comment on above: Performed By: #### H H #### [facility] [address] [place] [address] Dr. Shayne Roldan MCHC (RBC) [Mass/Vol] 32.7 g/dL Normal 29.9-35.2 [facility] Comment on above: Performed By: #### H H #### [facility] [address] [address] [address] Shayne Roldan MCV (RBC) [Entitic vol] 92.9 fL Normal 81.0-99.0 [facility] Comment on above: Performed By: #### H H #### [facility] [address] [address] [address] Shayne Roldan PLT 367 103/ul Normal 150-450 [facility] Comment on above: Performed By: #### H H #### [facility] [address] [address] [address] Shayne Roldan RBC 4.78 106/ul Normal 4.20-5.40 [facility] Comment on above: Performed By: #### H H #### [facility] [address] [place] [address] Dr. Shayne Roldan WBC 9.9 103/ul Normal 4.0-11.0 [facility] Comment on above: Performed By: #### H H #### [facility] [address] [address] [address] Shayne Roldan MAGNESIUMon 02-25-2023 Magnesium [Mass/Vol] 1.6 mg/dL Critically low 1.8-2.4 [facility] Comment on above: Performed By: #### M G, RENAL, URIC #### [facility] [address] [address] [address] Shayne Roldan RENAL FUNCTION PANELon 02-25 Albumin [Mass/Vol] 3.4 g/dL Normal 3.4-5.0 [facility] Comment on above: Performed By: #### M G, RENAL, URIC #### [facility] [address] [address] [address] Shayne Roldan Calcium [Mass/Vol] 8.7 mg/dL Normal 8.5-10.1 [facility] Comment on above: Performed By: #### M G, RENAL, URIC #### [facility] [address] [address] [address] Shayne Roldan Chloride [Moles/Vol] 104 mmol/L Normal 98-107 [facility] Comment on above: Performed By: #### M G, RENAL, URIC #### [facility] [address] [place] [address] Dr. Shayne Roldan CO2 [Moles/Vol] 25.9 mmol/L Normal 21.0-32.0 [facility] Comment on above: Performed By: #### M G, RENAL, URIC #### [facility] [address] [place] [address] Dr. Shayne Roldan Creatinine [Mass/Vol] 1.19 mg/dL Critically high 0.55-1.02 [facility] Comment on above: Performed By: #### M G, RENAL, URIC #### [facility] [address] [place] [address] Dr. Shayne Roldan EGFR-AF FIJIAN 55 mL/min/1.73m2 Critically low >=60 [facility] Comment on above: Performed By: #### M G, RENAL, URIC #### [facility] [address] [place] [address] Dr. Shayne Roldan EGFR-NON AF FIJIAN 45 mL/min/1.73m2 Critically low >=60 [facility] Comment on above: Performed By: #### M G, RENAL, URIC #### [facility] [address] [place] [address] Dr. Shayne Roldan Glucose [Mass/Vol] 193 mg/dL Critically high 74-106 [facility] Comment on above: Performed By: #### M G, RENAL, URIC #### [facility] [address] [place] [address] Dr. Shayne Roldan Phosphate [Mass/Vol] 3.2 mg/dL Normal 2.6-4.7 [facility] Comment on above: Performed By: #### M G, RENAL, URIC #### [facility] [address] [place] [address] Dr. Shayne Roldan Potassium [Moles/Vol] 3.9 mmol/L Normal 3.5-5.1 [facility] Comment on above: Performed By: #### M G, RENAL, URIC #### [facility] [address] [address] [address] Shayne Roldan Sodium [Moles/Vol] 140 mmol/L Normal 136-145 [facility] Comment on above: Performed By: #### M G, RENAL, URIC #### [facility] [address] [place] [address] Dr. Shayne Roldan Urea nitrogen [Mass/Vol] 17.0 mg/dL Normal 7.0-18.0 [facility] Comment on above: Performed By: #### M G, RENAL, URIC #### [facility] [address] [place] [address] Dr. Shayne Roldan UA RANDOM W/MICROSCOPICon BACTERIA TRACE Abnormal NONE SEEN [facility] Comment on above: Performed By: #### M G, RENAL, URIC #### [facility] [address] [place] [address] Dr. Shayne Roldan Bilirubin Ql (U) Negative Normal NEGATIVE [facility] Comment on above: Performed By: #### M G, RENAL, URIC #### [facility] [address] [place] [address] Dr. Shayne Roldan CAST NONE SEEN Normal NONE SEEN [facility] Comment on above: Performed By: #### M G, RENAL, URIC #### [facility] [address] [place] [address] Dr. Shayne Roldan Clarity (U) CLEAR Normal CLEAR [facility] Comment on above: Performed By: #### M G, RENAL, URIC #### [facility] [address] [place] [address] Dr. Shayne Roldan Color (U) LT. YELLOW Normal YELLOW [facility] Comment on above: Performed By: #### M G, RENAL, URIC #### [facility] [address] [place] [address] Dr. Shayne Roldan Crystals LM Nom (Urine sed) NONE SEEN Normal NONE SEEN [facility] Comment on above: Performed By: #### M G, RENAL, URIC #### [facility] [address] [place] [address] Dr. Shayne Roldan Epithelial cells LM Ql (Urine sed) RARE Normal NONE SEEN /RARE [facility] Comment on above: Performed By: #### M G, RENAL, URIC #### [facility] [address] [address] [address] Shayne Roldan Glucose Ql (U) Negative Normal NEGATIVE [facility] Comment on above: Performed By: #### M G, RENAL, URIC #### [facility] [address] [address] [address] Shayne Roldan Hemoglobin Ql (U) Negative Normal NEGATIVE [facility] Comment on above: Performed By: #### M G, RENAL, URIC #### [facility] [address] [address] [address] Shayne Roldan Ketones Ql (U) Negative Normal NEGATIVE [facility] Comment on above: Performed By: #### M G, RENAL, URIC #### [facility] [address] [place] [address] Dr. Shayne Roldan LEUKOCYTES Negative Normal NEGATIVE [facility] Comment on above: Performed By: #### M G, RENAL, URIC #### [facility] [address] [address] [address] Shayne Roldan MUCOUS NONE SEEN Normal NONE SEEN [facility] Comment on above: Performed By: #### M G, RENAL, URIC #### [facility] [address] [place] [address] Dr. Shayne Roldan Nitrite Ql (U) Negative Normal NEGATIVE [facility] Comment on above: Performed By: #### M G, RENAL, URIC #### [facility] [address] [address] [address] Shayne Roldan pH (U) 5.0 [pH] Normal 5-9 [facility] Comment on above: Performed By: #### M G, RENAL, URIC #### [facility] [address] [place] [address] Dr. Shayne Roldan RBC 0-2 Normal 0-2 [facility] Comment on above: Performed By: #### M G, RENAL, URIC #### [facility] [address] [place] [address] Dr. Shayne Roldan SPEC GRAVITY 1.025 Normal 1.005-<=1.025 [facility] Comment on above: Performed By: #### M G, RENAL, URIC #### [facility] [address] [place] [address] Dr. Shayne Roldan UA PROTEIN Negative Normal NEGATIVE/ TRACE [facility] Comment on above: Performed By: #### M G, RENAL, URIC #### [facility] [address] [place] [address] Dr. Shayne Roldan Urobilinogen Qn (U) 0.2 {Rogelio'U}/dL Normal 0.2 - 1. 0 [facility] Comment on above: Performed By: #### M G, RENAL, URIC #### [facility] [address] [place] [address] Dr. Shayne Roldan WBC 0-2 Abnormal NONE SEEN [facility] Comment on above: Performed By: #### M G, RENAL, URIC #### [facility] [address] [place] [address] Dr. Shayne Roldan URIC ACID SERUMon 02-25-2023 Urate [Mass/Vol] 6.1 mg/dL Critically high 2.6-6.0 [facility] Comment on above: Performed By: #### M G, RENAL, URIC #### [facility] [address] [place] [address] Dr. Shayne Roldan URINE T PROTEIN CREAT RATIOo n 02-25-2023 Protein (U) [Mass/Vol] 13.0 mg/dL Critically high <=12.0 [facility] Comment on above: Performed By: #### M G, RENAL, URIC #### [facility] [address] [place] [address] Dr. Shayne Roldan UR PROT CREAT RAT 0.16 Normal [facility] Comment on above: Performed By: #### M G, RENAL, URIC #### [facility] [address] [place] [address] Dr. Shayne Roldan URINE CREAT 83.60 mg/dL Normal 20.00-300.00 [facility] Comment on above: Performed By: #### M G, RENAL, URIC #### [facility] [address] [place], [place] [address] Dr. Shayne Roldan VITAMIN D 25 OHon 02-25-2023 VIT D 25-OH 41.6 ng/mL Normal [facility] Comment on above: Performed By: #### M G, RENAL, URIC #### [facility] [address] [place], [place] [address] Dr. Shayne Roldan VIT D RANGES SEE BELOW Normal [facility] Comment on above: Result Comment: <20 ng/mL Vit D deficient 20 - <30 ng/mL Vit D insufficient 30 - 100 ng/mL Vit D sufficient >100 ng/mL Potential Toxicity Performed By: #### M G, RENAL, URIC #### [facility] [address] [place], [place] [address] Dr. Shayne Roldan XR CHEST 2 Von [...] BRITTANY GALDAMEZ Date: 2023-02-22 16:15 Normal [facility] MAMM SCREEN 3D PRATEEK CADon 12-15-2022 MG MAMM SCREEN 3D PRATEEK CAD Patient: DIANA CHAMPION Exam Date: 12/15/2022 : 1955 Gender:F Ordering : DR JACK HALL . Admission #: [id number] Family : Order #: [id number] CLICK HERE TO VIEW EXAM RADIOLOGY REPORT PROCEDURE: MAMMOGRAM SCREENING 3D BILATERAL CAD COMPARISON: MG MAMM SCREEN 3D PRATEEK CAD, 11/26/2021. INDICATIONS: Calculator Name NCI Breast Cancer Risk Assessment Tool 5 Year Breast Cancer Risk 1.20% Lifetime Breast Cancer Risk 4.40% Personal Breast Cancer No Personal Ovarian Cancer No Treatments Excision, radiation, chemotherapy Family Cancers None LOCATION: [facility] BREAST COMPOSITION: Almost entirely fatty. [...] Walters MD on 12/15/2022 at 10:51 Normal [facility] XR DEXA BONE DENSITYon 12-15 XR DEXA [...] - Moderate Fracture Risk Electronically authenticated by: SETPH GRANADOS Date: 2022-12-15 09:50 Normal [facility] Fran 12-08-2022 L - -------- Specimen: [id number] Received: 12/08/22 Status: CELIA Eliza Num: [id number] Spec Type: Surgical Subm Dr: Gato Domingo MD Tissues: A Colon Biopsy (DESC COL POLYP) Procedures: HE/2, Gross/Micro L4 -------- Age/ Patient Sex Location Account Attending Physician -------- Diana Champion 67/F [id number] Gato Domingo MD -------- SPEC NUM: [id number] RECD: 12/08/221006 STATUS: CELIA MARTIN NUM: [id number] KENDRA: 12/08/2240 [facility] DR: Gato Domingo MD ENTERED: 12/08/22-1007 [facility] DR: KHRIS TYPE: Surgical DEPT: S ENTERED BY: [id number] RECV BY: [id number] ORDERED: HE/2, Gross/Micro L4 ORDERED: HE/2, Gross/Micro [...] support the above pathologic diagnosis. CPT Codes 98039 -------- -------- Specimen: [id number] Received: 12/08/22 Status: CELIA Eliza Num: [id number] Spec Type: Surgical Subm Dr: Gato Domingo MD Tissues: A Colon Biopsy (DESC COL POLYP) Procedures: Shagufta COTTER/Dionna L4 -------- Patient: Diana Champion [id number] (Continued) -------- Signed (signature on file) Eunice Rosa MD 12/09/[address] [place] [address] PAP ACOG PANEL 2: 30 to 65on 11-16-2022 . . Normal [facility] Comment on above: Performed By: #### [id number] #### [facility] [address] [place] [address] Dr. Shayne Roldan Age Gdln ACOG Testing Comment [facility] Comment on above: Result Comment: <21 or >65 or no age provided Performed By: #### [id number] #### [facility] [address] [place] [address] Dr. Shayne Roladn DIAGNOSIS: Comment [facility] Comment on above: Result Comment: NEGA TIVE FOR INTRAEPITHELIAL LESION OR MALIGNANCY. Performed By: #### [id number] #### [facility] [address] [place] [address] Dr. Shayne Roldan Methodology: Comment [facility] Comment on above: Result Comment: This liquid based ThinPrep(R) pap test was screened with the use of an image guided system. Performed By: #### [id number] #### [facility] [address] [place] [address] Dr. Shayne Roldan Note: Comment [facility] Comment on above: Result Comment: The Pap smear is a screening test designed to aid in the detection of premalignant and malignant conditions of the uterine cervix. It is not a diagnostic procedure and should not be used as the sole means of detecting cervical cancer. Both false-positive and false-negative reports do occur. . Performed By: #### [id number] #### [facility] [address] [place] [address] Dr. Shayne Roldan Performed by: Comment Normal [facility] Comment on above: Result Comment: Onur Aguilar Rounding Machine Tender (ASCP) Performed By: #### 4 [id number] #### [facility] [address] [place] [address] Dr. Shayne Roldan Specimen adequacy: Comment [facility] Comment on above: Result Comment: Sati sfactory for evaluation. Endocervical and/or squamous metaplastic cells (endocervical component) are present. Performed By: #### 4 [id number] #### [facility] [address] [address] [address] Shayne Roldan RENAL FUNCTION PANELon 08-19 Albumin [Mass/Vol] 3.4 g/dL Normal 3.4-5.0 [facility] Comment on above: Performed By: #### M G, RENAL, URIC #### [facility] [address] [address] [address] Shayne Roldan Calcium [Mass/Vol] 8.4 mg/dL Critically low 8.5-10.1 [facility] Comment on above: Performed By: #### M G, RENAL, URIC #### [facility] [address] [address] [address] Shayne Roldan Chloride [Moles/Vol] 103 mmol/L Normal 98-107 [facility] Comment on above: Performed By: #### M G, RENAL, URIC #### [facility] [address] [address] [address] Shayne Roldan CO2 [Moles/Vol] 27.8 mmol/L Normal 21.0-32.0 [facility] Comment on above: Performed By: #### M G, RENAL, URIC #### [facility] [address] [address] [address] Shayne Roldan Creatinine [Mass/Vol] 1.02 mg/dL Normal 0.55-1.02 [facility] Comment on above: Performed By: #### M G, RENAL, URIC #### [facility] [address] [address] [address] Shayne Roldan EGFR-AF FIJIAN >60 Normal >=60 [facility] Comment on above: Performed By: #### M G, RENAL, URIC #### [facility] [address] [address] [address] Shayne Roldan EGFR-NON AF FIJIAN 54 mL/min/1.73m2 Critically low >=60 [facility] Comment on above: Performed By: #### M G, RENAL, URIC #### [facility] [address] [address] [address] Shayne Roldan Glucose [Mass/Vol] 110 mg/dL Critically high 74-106 [facility] Comment on above: Performed By: #### M G, RENAL, URIC #### [facility] [address] [place] [address] Dr. Shayne Roldan Phosphate [Mass/Vol] 2.3 mg/dL Critically low 2.6-4.7 [facility] Comment on above: Performed By: #### M G, RENAL, URIC #### [facility] [address] [place] [address] Dr. Shayne Roldan Potassium [Moles/Vol] 3.2 mmol/L Critically low 3.5-5.1 [facility] Comment on above: Performed By: #### M G, RENAL, URIC #### [facility] [address] [place] [address] Dr. Shayne Roldan Sodium [Moles/Vol] 138 mmol/L Normal 136-145 [facility] Comment on above: Performed By: #### M G, RENAL, URIC #### [facility] [address] [place] [address] Dr. Shayne Roldan Urea nitrogen [Mass/Vol] 14.0 mg/dL Normal 7.0-18.0 [facility] Comment on above: Performed By: #### M G, RENAL, URIC #### [facility] [address] [place] [address] Dr. Shayne Roldan PTH INTACTon 08-06-2022 PTH, Intact 40 pg/mL Normal 15-65 [facility] Comment on above: Performed By: #### M G, RENAL, URIC #### [facility] [address] [place] [address] Dr. Shayne Roldan HEMOGRAM AND PLATELon 2021 Hematocrit (Bld) [Volume fraction] 39.8 % Normal 36.0-48.0 [facility] Comment on above: Performed By: #### M G, RENAL, URIC #### [facility] [address] [place] [address] Dr. Shayne Roldan Hemoglobin (Bld) [Mass/Vol] 13.4 g/dL Normal 12.0-16.0 [facility] Comment on above: Performed By: #### M G, RENAL, URIC #### [facility] [address] [address] [address] Shayne Roldan MCH (RBC) [Entitic mass] 30.5 pg Normal 26.7-34.0 [facility] Comment on above: Performed By: #### M G, RENAL, URIC #### [facility] [address] [place] [address] Dr. Shayne Roldan MCHC (RBC) [Mass/Vol] 33.7 g/dL Normal 29.9-35.2 [facility] Comment on above: Performed By: #### M G, RENAL, URIC #### [facility] [address] [address] [address] Shayne Roldan MCV (RBC) [Entitic vol] 90.5 fL Normal 81.0-99.0 [facility] Comment on above: Performed By: #### M G, RENAL, URIC #### [facility] [address] [place] [address] Dr. Shayne Roldan PLT 299 103/ul Normal 150-450 [facility] Comment on above: Performed By: #### M G, RENAL, URIC #### [facility] [address] [place] [address] Dr. Shayne Roldan RBC 4.40 106/ul Normal 4.20-5.40 [facility] Comment on above: Performed By: #### M G, RENAL, URIC #### [facility] [address] [address] [address] Shayne Roldan WBC 8.8 103/ul Normal 4.0-11.0 [facility] Comment on above: Performed By: #### M G, RENAL, URIC #### [facility] [address] [place] [address] Dr. Shayne Roldan MAGNESIUMon 08-05-2022 Magnesium [Mass/Vol] 1.5 mg/dL Critically low 1.8-2.4 [facility] Comment on above: Performed By: #### M G, RENAL, URIC #### [facility] [address] [place] [address] Dr. Shayne Roldan RENAL FUNCTION PANELon 08-05 Albumin [Mass/Vol] 3.5 g/dL Normal 3.4-5.0 [facility] Comment on above: Performed By: #### M G, RENAL, URIC #### [facility] [address] [address] [address] Shayne Roldan Calcium [Mass/Vol] 8.4 mg/dL Critically low 8.5-10.1 [facility] Comment on above: Performed By: #### M G, RENAL, URIC #### [facility] [address] [address] [address] Shayne Roldan Chloride [Moles/Vol] 101 mmol/L Normal 98-107 [facility] Comment on above: Performed By: #### M G, RENAL, URIC #### [facility] [address] [place] [address] Dr. Shayne Roldan CO2 [Moles/Vol] 29.5 mmol/L Normal 21.0-32.0 [facility] Comment on above: Performed By: #### M G, RENAL, URIC #### [facility] [address] [address] [address] Shayne Roldan Creatinine [Mass/Vol] 1.04 mg/dL Critically high 0.55-1.02 [facility] Comment on above: Performed By: #### M G, RENAL, URIC #### [facility] [address] [address] [address] Shayne Roldna EGFR-AF FIJIAN >60 Normal >=60 [facility] Comment on above: Performed By: #### M G, RENAL, URIC #### [facility] [address] [place] [address] Dr. Shayne Roldan EGFR-NON AF FIJIAN 53 mL/min/1.73m2 Critically low >=60 [facility] Comment on above: Performed By: #### M G, RENAL, URIC #### [facility] [address] [address] [address] Shayne Roldan Glucose [Mass/Vol] 92 mg/dL Normal 74-106 [facility] Comment on above: Performed By: #### M G, RENAL, URIC #### [facility] [address] [address] [address] Shayne Roldan Phosphate [Mass/Vol] 2.4 mg/dL Critically low 2.6-4.7 [facility] Comment on above: Performed By: #### M G, RENAL, URIC #### [facility] [address] [address] [address] Shayne Roldan Potassium [Moles/Vol] 2.8 mmol/L Critically low 3.5-5.1 [facility] Comment on above: Performed By: #### M G, RENAL, URIC #### [facility] [address] [address] [address] Shayne Roldan Sodium [Moles/Vol] 137 mmol/L Normal 136-145 [facility] Comment on above: Performed By: #### M G, RENAL, URIC #### [facility] [address] [place] [address] Dr. Shayne Roldan Urea nitrogen [Mass/Vol] 10.0 mg/dL Normal 7.0-18.0 [facility] Comment on above: Performed By: #### M G, RENAL, URIC #### [facility] [address] [place] [address] Dr. Shayne Roldan UA RANDOM W/MICROSCOPICon BACTERIA SMALL Abnormal NONE SEEN [facility] Comment on above: Performed By: #### U AMIC #### [facility] [address] [place] [address] Dr. Shayne Roldan Bilirubin Ql (U) Negative Normal NEGATIVE [facility] Comment on above: Performed By: #### U AMIC #### [facility] [address] [place] [address] Dr. Shayne Roldan CAST NONE SEEN Normal NONE SEEN [facility] Comment on above: Performed By: #### U AMIC #### [facility] [address] [place] [address] Dr. Shayne Roldan Clarity (U) CLEAR Normal CLEAR [facility] Comment on above: Performed By: #### U AMIC #### [facility] [address] [place] [address] Dr. Shayne Roldan Color (U) LT. YELLOW Normal YELLOW [facility] Comment on above: Performed By: #### U AMIC #### [facility] [address] [address] [address] Shayne Roldan Crystals LM Nom (Urine sed) NONE SEEN Normal NONE SEEN [facility] Comment on above: Performed By: #### U AMIC #### [facility] [address] [address] [address] Shayne Roldan Epithelial cells LM Ql (Urine sed) FEW Abnormal NONE SEEN /RARE [facility] Comment on above: Performed By: #### U AMIC #### [facility] [address] [address] [address] Shayne Roldan Glucose Ql (U) Negative Normal NEGATIVE [facility] Comment on above: Performed By: #### U AMIC #### [facility] [address] [place] [address] Dr. Shayne Roldan Hemoglobin Ql (U) Negative Normal NEGATIVE [facility] Comment on above: Performed By: #### U AMIC #### [facility] [address] [address] [address] Shayne Roldan Ketones Ql (U) Negative Normal NEGATIVE [facility] Comment on above: Performed By: #### U AMIC #### [facility] [address] [address] [address] Shayne Roldan LEUKOCYTES TRACE Abnormal NEGATIVE [facility] Comment on above: Performed By: #### U AMIC #### [facility] [address] [address] [address] Shayne Roldan MUCOUS NONE SEEN Normal NONE SEEN [facility] Comment on above: Performed By: #### U AMIC #### [facility] [address] [address] [address] Shayne Roldan Nitrite Ql (U) Negative Normal NEGATIVE [facility] Comment on above: Performed By: #### U AMIC #### [facility] [address] [place] [address] Dr. Shayne Roldan pH (U) 6.0 [pH] Normal 5-9 [facility] Comment on above: Performed By: #### U AMIC #### [facility] [address] [address] [address] Shayne Roldan RBC NONE SEEN Abnormal 0-2 [facility] Comment on above: Performed By: #### U AMIC #### [facility] [address] [address] [address] Shayne Roldan SPEC GRAVITY <=1.005 Abnormal 1.005-<=1.025 [facility] Comment on above: Performed By: #### U AMIC #### [facility] [address] [address] [address] Shayne Roldan UA PROTEIN Negative Normal NEGATIVE/ TRACE [facility] Comment on above: Performed By: #### U AMIC #### [facility] [address] [place] [address] Dr. Shayne Roldan Urobilinogen Qn (U) 0.2 {Rogelio'U}/dL Normal 0.2 - 1. 0 [facility] Comment on above: Performed By: #### U AMIC #### [facility] [address] [address] [address] Shayne Roldan WBC 5-10 Abnormal NONE SEEN [facility] Comment on above: Performed By: #### U AMIC #### [facility] [address] [place] [address] Dr. Shayne Roldan URIC ACID SERUMon 08-05-2022 Urate [Mass/Vol] 6.5 mg/dL Critically high 2.6-6.0 [facility] Comment on above: Performed By: #### M G, RENAL, URIC #### [facility] [address] [address] [address] Shayne Roldan URINE T PROTEIN CREAT RATIOo n 08-05-2022 Protein (U) [Mass/Vol] 4.8 mg/dL Normal <=12.0 [facility] Comment on above: Performed By: #### U RTPCR #### [facility] [address] [place] [address] Dr. Shayne Roldan UR PROT CREAT RAT 0.09 Normal [facility] Comment on above: Performed By: #### U RTPCR #### [facility] [address] [address] [address] Shayne Roldan URINE CREAT 52.65 mg/dL Normal 20.00-300.00 [facility] Comment on above: Performed By: #### U RTPCR #### [facility] [address] [address] [address] Shayne Roldan VITAMIN D 25 OHon 08-05-2022 VIT D 25-OH 38.9 ng/mL Normal [facility] Comment on above: Performed By: #### M G, RENAL, URIC #### [facility] [address] [address] [address] Shayne Roldan VIT D RANGES SEE BELOW Normal [facility] Comment on above: Result Comment: <20 ng/mL Vit D deficient 20 - <30 ng/mL Vit D insufficient 30 - 100 ng/mL Vit D sufficient >100 ng/mL Potential Toxicity Performed By: #### M G, RENAL, URIC #### [facility] [address] [address] [address] Shayne Roldan IMMUNOGLOBULINS IGA/IGM/IGG/ IGE QUANTITAon 07-12-2022 Immunoglobulin A, Qn, Serum 295 mg/dL Normal 87-352 [facility] Comment on above: Result Comment: Perf ormed at: CB Performed By: #### M G, RENAL, URIC #### [facility] [address] [address] [address] Shayne Roldan Immunoglobulin E, Total 32 IU/mL Normal 6-495 [facility] Comment on above: Result Comment: Perf ormed at: BN Performed By: #### M G, RENAL, URIC #### [facility] [address] [address] [address] Shayne Roldan Immunoglobulin G, Qn, Serum 729 mg/dL Normal 586-1602 [facility] Comment on above: Result Comment: Perf ormed at: CB Performed By: #### M G, RENAL, URIC #### [facility] [address] [address] [address] Shayne Roldan Immunoglobulin M, Qn, Serum 75 mg/dL Normal 26-217 [facility] Comment on above: Result Comment: Perf ormed at: CB Performed By: #### M G, RENAL, URIC #### [facility] [address] [address] [address] Shayne Roldan Abstracton 07-08-2022 Abstract [id number] Nell Champion 1955 F Date Provider Department Center 07/08/2022 JOHANNA MEDINA [facility] Family History Problem Relation Age of Onset Heart failure Mother Heart disease Father Family Status - Relation Status Age at Mother Father Normal [facility] CBC AUTO DIFFon 07-05-2022 BASO # 0.1 103/ul Normal 0.0-0.1 [facility] Comment on above: Performed By: #### M G, RENAL, URIC #### [facility] [address] [place] [address] Dr. Shayne Roldan Basophils/100 WBC (Bld) 0.7 % Normal 0.2-2.0 [facility] Comment on above: Performed By: #### M G, RENAL, URIC #### [facility] [address] [address] [address] Shayne Roldan EO # 0.4 103/ul Normal 0.0-0.7 [facility] Comment on above: Performed By: #### M G, RENAL, URIC #### [facility] [address] [address] [address] Shayne Roldan Eosinophils/100 WBC (Bld) 4.4 % Normal 0.9-7.0 [facility] Comment on above: Performed By: #### M G, RENAL, URIC #### [facility] [address] [address] [address] Shayne Roldan Erythrocyte distribution width (RBC) [Ratio] 12.6 % Normal 11.0-15.0 [facility] Comment on above: Performed By: #### M G, RENAL, URIC #### [facility] [address] [place] [address] Dr. Shayne Roldan Hematocrit (Bld) [Volume fraction] 40.2 % Normal 36.0-48.0 [facility] Comment on above: Performed By: #### M G, RENAL, URIC #### [facility] [address] [address] [address] Shayne Roldan Hemoglobin (Bld) [Mass/Vol] 13.6 g/dL Normal 12.0-16.0 [facility] Comment on above: Performed By: #### M G, RENAL, URIC #### [facility] [address] [place] [address] Dr. Shayne Roldan IG # 0.07 10e3/ul Critically high 0.00-0.03 [facility] Comment on above: Performed By: #### M G, RENAL, URIC #### [facility] [address] [place] [address] Dr. Shayne Roldan IG % 0.8 % Critically high 0.0-0.5 [facility] Comment on above: Performed By: #### M G, RENAL, URIC #### [facility] [address] [place] [address] Dr. Shayne Roldan LYMPH # 2.3 103/ul Normal 1.2-3.8 [facility] Comment on above: Performed By: #### M G, RENAL, URIC #### [facility] [address] [place] [address] Dr. Shayne Roldan Lymphocytes/100 WBC (Bld) 24.7 % Normal 20.5-60.0 [facility] Comment on above: Performed By: #### M G, RENAL, URIC #### [facility] [address] [place] [address] Dr. Shayne Roldan MANUAL DIFF REQ NO Normal [facility] Comment on above: Performed By: #### M G, RENAL, URIC #### [facility] [address] [place] [address] Dr. Shayne Roldan MCH (RBC) [Entitic mass] 30.7 pg Normal 26.7-34.0 [facility] Comment on above: Performed By: #### M G, RENAL, URIC #### [facility] [address] [place] [address] Dr. Shayne Roldan MCHC (RBC) [Mass/Vol] 33.8 g/dL Normal 29.9-35.2 [facility] Comment on above: Performed By: #### M G, RENAL, URIC #### [facility] [address] [place] [address] Dr. Shayne Roldan MCV (RBC) [Entitic vol] 90.7 fL Normal 81.0-99.0 [facility] Comment on above: Performed By: #### M G, RENAL, URIC #### [facility] [address] [place] [address] Dr. Shayne Roldan MONO # 0.7 103/ul Normal 0.3-0.8 [facility] Comment on above: Performed By: #### M G, RENAL, URIC #### [facility] [address] [place] [address] Dr. Shayne Roldan Monocytes/100 WBC (Bld) 7.7 % Normal 1.7-12.0 [facility] Comment on above: Performed By: #### M G, RENAL, URIC #### [facility] [address] [place] [address] Dr. Shayne Roldan NEUT # 5.7 103/ul Normal 1.4-6.5 [facility] Comment on above: Performed By: #### M G, RENAL, URIC #### [facility] [address] [place] [address] Dr. Shayne Roldan Neutrophils/100 WBC (Bld) 61.7 % Normal 43.0-75.0 [facility] Comment on above: Performed By: #### M G, RENAL, URIC #### [facility] [address] [place] [address] Dr. Shayne Roldan Platelet mean volume (Bld) [Entitic vol] 8.8 fL Critically low 9.5-13.5 [facility] Comment on above: Performed By: #### M G, RENAL, URIC #### [facility] [address] [place] [address] Dr. Shayne Roldan PLT 279 103/ul Normal 150-450 [facility] Comment on above: Performed By: #### M G, RENAL, URIC #### [facility] [address] [place], [place] [address] Dr. Shayne Roldan RBC 4.43 106/ul Normal 4.20-5.40 [facility] Comment on above: Performed By: #### Katy Isaac, RENAL, URIC #### [facility] [address] [place], [place] [address] Dr. Shayne Roldan WBC 9.1 103/ul Normal 4.0-11.0 [facility] Comment on above: Performed By: #### M G, RENAL, URIC #### [facility] [address] [place], [place] [address] Dr. Shayne Roldan [facility]on SARS-CoV-2 (COVID-19) RNA KAYLEE+probe Ql (Unsp spec) Not detected Normal NOT DETECTED [facility] Comment on above: Result Comment: This test is not yet approved or cleared by the [place] FDA. When there are no FDA-approved or cleared tests available, and other criteria are met, FDA can make tests available under an emergency access mechanism called an Emergency Use Authorization (EUA). The EUA for this test is supported by the [facility] of Health and Human Service's (HHS's) declaration [...] consistent with SARS-CoV-2. Performed By: #### M Poncho, RENAL, URIC #### [facility] [address] [place], [place] [address] Dr. Shayne Roldan XR CHEST 2 Von [...] acute cardiopulmonary disease. Electronically authenticated by: NARDA GARLANDNG Date: 2022-06-08 19:58 Normal [facility]on SARS-CoV-2 (COVID-19) RNA KAYLEE+probe Ql (Unsp spec) Not detected Normal NOT DETECTED [facility] Comment on above: Result Comment: This test is not yet approved or cleared by the [place] FDA. When there are no FDA-approved or cleared tests available, and other criteria are met, FDA can make tests available under an emergency access mechanism called an Emergency Use Authorization (EUA). The EUA for this test is supported by the [place] of Health and Human Service's (HHS's) declaration [...] consistent with SARS-CoV-2. Performed By: #### [facility] #### [facility] [address] [place] [address] Dr. Shayne Roldan DEXA AXIALon 03-01-2022 DEXA AXIAL [facility] Department of Radiology [address] [place] [id number] Patient Name: DIANA CHAMPION : 1955 [...] characteristics. Electronically signed: Luzma Fernandez. Transcribed by: [email or web address], User Resident: Electronically Signed by: LUZMA FERNANDEZ @ 03/02/2022 01:07 PM Normal [facility] SCOLIOSIS 2 Son 02-24-2022 SCOLIOSIS 2 [facility] Department of Radiology [address] [place] [id number] Patient Name: DIANA CHAMPION : 1955 Sex: F Age: Race: White Pt. Location: Patient Status: D Ordered Date: 02/24/2022 1:25:00 PM Completed Date: 02/24/2022 01:44 PM Requesting Provider: CINDA ANTONIO Attending Provider: Report Copy To: Signs & Symptoms: M43.10 Spondylolisthesis, site unspecified I10 History: Comments: Views (X-RAY, SCOLIOSIS): PA, Lateral evaluate Exam: SCOLIOSIS 2 [facility] Scoliosis. Worsening pain. Frontal and lateral thoracolumbar spine IMPRESSION: 1. Diffuse disc disease and facet arthritis. Right convex mid lumbar curvature measuring 16 degrees. Interbody fusion hardware lower lumbar spine. Electronically signed: Hugo Lynn. Transcribed by: [email or web address], User Resident: Electronically Signed by: HUGO LYNN @ 02/26/2022 11:07 AM Normal [facility] Comment on above: Order Comment: Views (X-RAY, SCOLIOSIS): PA, Lateral evaluate CT LUMBAR SPINE W CONTRASTon 01-24-2022 CT LUMBAR SPINE W CONTRAST [facility] Department of Radiology [address] [place] [phone] Patient Name: DIANA CHAMPION : 1955 Sex: F Age: Race: White Pt. Location: Patient Status: D Ordered Date: 01/09/2022 9:00:00 AM Completed Date: 01/24/2022 03:26 PM Requesting Provider: JOO LINN Attending Provider: JOO LINN Report Copy To: UNKNOWN, PHYSICIAN Signs & Symptoms: M54.16 Radiculopathy, lumbar region I10 History: [place] Comments: , CT MYELOGRAM>PAPER WORK IN CHART [...] L1-2. Electronically signed: Gaurang Lawrence. Transcribed by: [email or web address], User Resident: Electronically Signed by: GAURANG LAWRENCE @ 01/26/2022 08:58 AM Normal [facility] Comment on above: Order Comment: , CT MYELOGRAM>PAPER WORK IN CHART LUMBAR MYELOGRAMon 2 LUMBAR MYELOGRAM [facility] Department of Radiology [address] [place] [phone] Patient Name: DIANA CHAMPION : 1955 Sex: F Age: Race: White Pt. Location: Patient Status: O Ordered Date: 01/09/2022 9:00:00 AM Completed Date: 01/24/2022 02:37 PM Requesting Provider: JOO LINN Attending Provider: JOO LINN Report Copy To: UNKNOWN, PHYSICIAN Signs & Symptoms: M54.16 Radiculopathy, lumbar region I10 History: Jessica Is patient on thinners? 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 Consent was obtained. Timeout: [place] protocol timeout verification performed. PROCEDURE: Estimated blood [...] report. Electronically signed: Greg Marlow. Transcribed by: [email or web address], User Resident: DEBBIE JI Electronically Signed by: GREG MARLOW @ 01/24/2022 04:07 PM I personally read this/these film(s) with this resident Normal [facility] Comment on above: Order Comment: , CT MYELOGRAM> PAPER WORK SCANNED IN CHART , CT MYELOGRAM> PAPER WORK SCANNED IN CHART , , , Ordering Provider - JOO LINN MD , HIP LEFT 1 OR 2 VWS WITH PEL VISon 01-06-2022 HIP LEFT 1 OR 2 VWS WITH PELVIS [facility] Department of Radiology [address] [place] [id number] Patient Name: DIANA CHAMPION : 1955 Sex: F Age: Race: White Pt. Location: Patient Status: D Ordered Date: 12/21/2021 10:45:00 AM Completed Date: 01/06/2022 01:24 PM Requesting Provider: JOO LINN Attending Provider: JOO LINN Report Copy To: Signs & Symptoms: Z96.642 Presence of left artificial hip joint I10 History: [place] Comments: Evaluate Exam: HIP LEFT 1 OR 2 VWS WITH PELVIS HIP LEFT 1 OR 2 VWS WITH PELVIS HISTORY: Hip replacement, follow-up. COMPARISON: None. IMPRESSION: 1. Redemonstrated left hip prosthesis without visible complication. 2. Advanced right hip arthritis without significant change with advanced joint space narrowing. Unchanged lumbosacral fusion hardware. Electronically signed: Joe Matthew. Transcribed by: [email or web address], User Resident: Electronically Signed by: JOE MATTHEW @ 01/09/2022 04:45 PM Normal [facility] Comment on above: Order Comment: Evalu ate Vital Signs Date Time Vital Sign Value Performing Clinician Facility 08-17-2023 09:20-0400 Body height 165.1 cm [facility] Joana Other [facility] Other 08-17-2023 09:20-0400 Body mass index (BMI) [Ratio] 38.1 kg/m2 [facility] Joana Other [facility] Other 08-17-2023 09:20-0400 Body temperature 98.8 [degF] [facility] Joana Other [facility] Other 08-17-2023 09:20-0400 Body weight 103.87 kg Her[facility] Joana Other [facility] Other 08-17-2023 09:20-0400 Diastolic blood pressure 85 mm[Hg] [facility] Joana Other [facility] Other 08-17-2023 09:20-0400 Respiratory rate 18 /min [facility] Joana Other [facility] Other 08-17-2023 09:20-0400 SaO2% (BldA) [Mass fraction] 94 % [facility] Joana Other [facility] Other 08-17-2023 09:20-0400 Systolic blood pressure 151 mm[Hg] [facility] Joana Other [facility] Other 03-02-2023 10:00-0400 Body height 165.1 cm [facility] Joana Other [facility] Other 03-02-2023 10:00-0400 Body mass index (BMI) [Ratio] 37.29 kg/m2 [facility] Joana Other [facility] Other 03-02-2023 10:00-0400 Body temperature 98.9 [degF] [facility] Joana Other [facility] Other 03-02-2023 10:00-0400 Body weight 101.65 kg [facility]berth Joana Other [facility] Other 03-02-2023 10:00-0400 Diastolic blood pressure 76 mm[Hg] [facility] Joana Other [facility] Other 03-02-2023 10:00-0400 Respiratory rate 20 /min [facility] Joana Other [facility] Other 03-02-2023 10:00-0400 SaO2% (BldA) [Mass fraction] 96 % [facility] Joana Other [facility] Other 03-02-2023 10:00-0400 Systolic blood pressure 136 mm[Hg] [facility]ber[facility] Joana Other [facility] Other 12-08-2022 09:30-0500 Diastolic blood pressure 59 mm[Hg] MD Shaikh Ohara Work Phone: [facility] 12-08-2022 09:30-0500 Heart rate 55 /min MD Shaikh Ohara Work Phone: [facility] 12-08-2022 09:30-0500 Respiratory rate 16 /min MD Shaikh Ohara Work Phone: [facility] 12-08-2022 09:30-0500 SaO2% (BldA) [Mass fraction] 96 % MD Shaikh Ohara Work Phone: [facility] 12-08-2022 09:30-0500 Systolic blood pressure 112 mm[Hg] MD Shaikh Ohara Work Phone: [facility] 12-08-2022 06:54-0500 Body height 162.56 cm MD Shaikh Ohara Work Phone: [facility] 12-08-2022 06:54-0500 Body temperature 98.2 [degF] MD Shaikh Ohara Work Phone: [facility] 12-08-2022 06:54-0500 Body weight 104.32 kg MD Shaikh Ohara Work Phone: [facility] 08-09-2022 11:00-0400 Body height 165.1 cm Herberth Joana Other [facility] Other 08-09-2022 11:00-0400 Body mass index (BMI) [Ratio] 37.87 kg/m2 [facility]ber[facility] Joana Other [facility] Other 08-09-2022 11:00-0400 Body temperature 97.2 [degF] Herberth Joana Other [employer] Other 08-09-2022 11:00-0400 Body weight 103.24 kg Herberth Joana Other [employer] Other 08-09-2022 11:00-0400 Diastolic blood pressure 88 mm[Hg] Herberth Joana Other [employer] Other 08-09-2022 11:00-0400 Respiratory rate 20 /min Herberth Joana Other [employer] Other 08-09-2022 11:00-0400 SaO2% (BldA) [Mass fraction] 95 % Herberth Joana Other [employer] Other 08-09-2022 11:00-0400 Systolic blood pressure 133 mm[Hg] Herberth Joana Other [employer] Other 11-17-2021 10:40-0500 Body height 165.1 cm Herberth Joana Other [employer] Other 11-17-2021 10:40-0500 Body mass index (BMI) [Ratio] 37.97 kg/m2 Herberth Joana Other [employer] Other 11-17-2021 10:40-0500 Body temperature 97.8 [degF] Herberth Joana Other [employer] Other 11-17-2021 10:40-0500 Body weight 103.51 kg Herberth Joana Other [employer] Other 11-17-2021 10:40-0500 Diastolic blood pressure 70 mm[Hg] Herberth Joana Other [employer] Other 11-17-2021 10:40-0500 Respiratory rate 18 /min Herberth Joana Other [employer] Other 11-17-2021 10:40-0500 SaO2% (BldA) [Mass fraction] 94 % Herberth Joana Other [employer] Other 11-17-2021 10:40-0500 Systolic blood pressure 130 mm[Hg] Herberth Joana Other [employer] Other 08-30-2021 13:15-0400 Body height 165.1 cm Rena Ginty Other [employer] Other 08-30-2021 13:15-0400 Body mass index (BMI) [Ratio] 36.61 kg/m2 Rena Ginty Other [employer] Other 08-30-2021 13:15-0400 Body temperature 98.7 [degF] Rena Ginty Other [employer] Other 08-30-2021 13:15-0400 Body weight 99.79 kg Rena Ginty Other [employer] Other 08-30-2021 13:15-0400 SaO2% (BldA) [Mass fraction] 90 % Rena Ginty Other [employer] Other Encounters Encounter Date Encounter Type Care Provider Facility Start: 11-13-2023 End: 11-14-2023 ambulatory Jayshree Vargas MD Facility: [facility] Start: 11-02-2023 End: 11-02-2023 ambulatory SAUNDERS FAWWAD Not Available Start: 10-09-2023 End: 10-10-2023 ambulatory Jayshree Vargas MD Facility: [facility] Start: 10-04-2023 End: 10-04-2023 ambulatory SAUNDERS FAWW[facility] Not Available Start: 09-07-2023 End: 09-07-2023 ambulatory Herberth Joana Other [employer] Other Start: 09-07-2023 Telephone encounter Herberth Joana [facility] Start: 08-28-2023 End: 08-28-2023 ambulatory Herberth Joana Other [employer] Other Start: 08-28-2023 Telephone encounter Herberth Joana [facility] Start: 08-21-2023 End: 08-22-2023 ambulatory Jayshree Vargas MD Facility:[facility] Start: 08-17-2023 End: 08-17-2023 ambulatory Herberth Joana Other [employer] Other Start: 08-17-2023 Office outpatient visit 25 minutes Herberth Joana [facility] [place] Start: 05-08-2023 End: 05-08-2023 [facility] Start: 04-04-2023 End: 04-04-2023 ambulatory SHAIKH Dimitry OHARA Facility:[facility] Start: 03-24-2023 End: 03-25-[address] STEPH GRANADOS Facility:[facility] Start: 03-23-2023 ambulatory [facility] Start: 03-02-2023 End: 03-02-2023 ambulatory Herberth Joana Other [employer] Other Start: 03-02-2023 Office outpatient visit 25 minutes Herberth Joana [facility] Start: 02-25-2023 End: 02-26-2023 ambulatory HERBERTH JOANA Facility:[facility] Start: 02-22-2023 End: 02-23-2023 ambulatory BO MCCLAIN . Facility:[facility] Start: 12-15-2022 End: 12-16-[address] JACK HALL . Facility:[facility] Start: 12-08-2022 End: 12-08-2022 ambulatory Shaikh Lev Facility:[facility] Start: 12-08-2022 End: 12-08-2022 Admission to same day surgery center MD Shaikh Ohara Work Phone: [facility] Work Phone: Start: 12-08-2022 End: 12-08-2022 ambulatory MD Shaikh Ohara Work Phone: [facility] Work Phone: Start: 11-11-2022 End: 11-11-[address] JACK HALL . Facility:[facility] Start: 11-09-2022 End: 11-09-2022 ambulatory Gilma Trent Other [employer] Other Start: 11-09-2022 Telephone encounter Azkevyn Gonzalezs [facility] Start: 08-19-2022 End: 08-20-2022 ambulatory HERBERTH JOANA Facility:[facility] Start: 08-09-2022 End: 08-09-2022 ambulatory Herberth Joana Other [employer] Other Start: 08-09-2022 Office outpatient visit 10 minutes Herberth Joana [facility] Start: 08-09-2022 Telephone encounter Herberth Joana [facility] Start: 08-05-2022 Telephone encounter Herberth Joana [facility] Start: 08-05-2022 End: 08-06-2022 ambulatory HERBERTH JOANA [facility] Other Start: 07-08-2022 End: 07-08-2022 ambulatory Gato Domingo Other [employer] Other Start: 07-08-2022 Telephone encounter Gato Cesar ck [facility] Start: 07-05-2022 End: 07-06-2022 ambulatory SAUNDERS H FAWWAD Facility:[facility] Start: 06-08-2022 End: 06-09-2022 ambulatory SAUNDERS H FAWWAD Facility:[facility] Start: 06-07-2022 End: 06-07-2022 ambulatory SAUNDERS H FAWWAD Facility:[facility] Start: 01-24-2022 End: 01-25-2022 ambulatory PHYSICIAN UNKNOWN Facility:[facility] Start: 11-17-2021 End: 11-17-2021 ambulatory Herberth Joana Other [facility] [employer] Other Start: 11-17-2021 Office outpatient visit 15 minutes Herberth Bernard [facility] Start: 08-30-2021 Office outpatient visit 15 minutes Rena Hurd [facility] [place] Start: 09-11-2020 End: 09-11-2020 Chart abstracting Miguelito Buck Work Phone: Hematology/Oncology Start: 09-11-2020 End: 09-11-2020 Patient encounter procedure External Provider [facility] Start: 09-11-2020 Results Only External Provider [facility] Start: 09-30-2019 End: 09-30-2019 Patient encounter procedure [facility] [place] Start: 07-07-2017 End: 07-07-2017 Admission to day surgery [facility] Start: 05-24-2004 Evaluation and management of inpatient [facility] [place] Start: 04-26-2004 Evaluation and management of inpatient [facility] [place] Procedures Date Procedure Procedure Detail Performing Clinician Start: 12-08-2022 Colonoscopy MD Shaikh Ohara Work Phone: Start: 09-11-2020 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 Kennel Assistant al Provider Start: 09-11-2020 EXTERNAL LAB External P rovider Start: 09-11-2020 EXTERNAL PROCEDURE Exte rnal Provider Start: 09-30-2019 Ultrasonography of b ilateral kidneys Steph Collier Plan of Treatment Date Care Activity Detail Author Start: 12-08-2022 [facility] Start: 07-07-2020 Influenza vaccination INFLUENZA (#1) [facility] Start: 2006 SHINGRIX VACCINE (1 of 2) SHINGRIX VACCINE (1 of 2) [facility] Start: 2006 Tuberculosis screening COLORECTAL CANCER SCREENING,SEE MODIFIER [facility] Start: 2001 DIABETES SCREEN DIABETES SCREEN [facility] Start: 2001 LIPID SCREEN LIPID SCREEN [facility] Start: 1996 Mammography MAMMOGRAM [facility] Start: 1986 HPV TESTING HPV TESTING [facility] Start: 1977 PAP TESTING PAP TESTING [facility] Start: 1975 Urine microalbumin profile DTAP,TDAP,TD (1 - Tdap) [facility] Start: 1974 HEPATITIS C SCREENING HEPATITIS C SCREENING [facility] Start: 1974 HIV SCREENING HIV SCREENING [facility] Patient Education Colon Polypect shahram Hemorrhoids (DC) Diverticulosis (DC) [facility] Work Phone: [facility] Immunizations Immunization Date Immunization Notes Care Provider Fa araceli 07-18-2018 Depo-Medrol 40 mg Rena Gint y Other [employer] Other 01-31-2018 Depo-Medrol 40 mg Rena Gint y Other [employer] Other 08-09-2017 influenza, seasonal, injectable, preservative free Rena Ginty Other [employer] Other Payers Date Payer Category Payer Unknown 2022 Self-pay [id number] 2021 Medicare [id number] 2020 Medicaid [id number] 2019 Medicaid [place] [id number] 2019-Present Medicaid [id number] 2016 Medicare MEDICARE MEDICAR E A AND B [id number] 2016-Present [place] [id number] 1959 Unknown [id number] 1956 Unknown [id number] 2.16.840.1.821826.3.579.2.647 1956 Unknown [id number] 2.16.840.1.381031.3.579.2.593 1956 Unknown [id number] 2.16.840.1.609635.3.579.2.593 1956 Unknown [id number] 2.16.840.1.808070.3.579.2.593 1956 Unknown [id number] 2.16.840.1.718809.3.579.2.593 1956 Unknown [id number] 2.16.840.1.609947.3.579.2.593 1956 Unknown [id number] 2.16.840.1.225174.3.579.2.593 1956 Unknown [id number] 2.16.840.1.884027.3.579.2.593 1956 Unknown [id number] 2.16.840.1.108916.3.579.2.593 1956 Unknown [id number] 2.16.840.1.884023.3.579.2.593 1956 Unknown [id number] 2.16.840.1.980581.3.579.2.593 1956 Unknown [id number] 2.16.840.1.060196.3.579.2.593 1956 Unknown [id number] 2.16.840.1.224217.3.579.2.1259 1956 Unknown [id number] 2.16.840.1.235104.3.579.2.1259 1956 Unknown [id number] 2.16.840.1.222723.3.579.2.196 1956 Unknown [id number] 2.16.840.1.835240.3.579.2.196 1956 Unknown [id number] 2.16.840.1.089576.3.579.2.196 Medicare [id number] Unknown HCAP/HFA/FAP Active [id number] Unknown [id number] 2.16.840.1.815246.3.579.2.531 Social History Date Type Detail Facility Tobacco smoking stat us [facility] Unknown if ever smoked [facility] Start: 1955 Sex Assigned At Female F [facility] Start: 09-11-2020 End: 12-08-2022 Tobacco smoking status NHIS Never smoker [facility] Start: 09-11-2020 Tobacco use and exposure Never used [facility] Start: 09-11-2020 Alcohol intake Lifetime non-d my (finding) [facility] Start: 09-11-2020 History SDOH Alcohol Frequency 1 [facility] Sex Assigned At Not on file [facility] Sex Assigned At Sex Assigned At Bir th [employer] Other Goals Date Patient Goal Desired Activity /State Clinical Notes 08-30-2021 to 09-07-2023 Note Date & Type Note Facility 09-07-2023 Evaluation note Encounter Date Diagnosis Assessment Notes Sep, Hypomagnesemia (ICD-10 - E83.42) [employer] Other 10-23-2023 Evaluation note* Encounter Date Diagnosis Assessment Notes Treatment Notes Treatment Clinical Notes Aug, 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 12 Aug, 2023 Secondary hyperparathyroidism (ICD-10 - N25.81) She has [...] PPI induced GI losses. Continue oral Magnesium [employer] Other 07-03-[address] [facility] Chief Complaint: Patient here for 1 year follow up CAD and hypertension. She was recently discharged from [facility] for Covid-19. She says hydrochlorothiazide was [...] breath since then. She has seen her book retailer. Her chest pain is noncardiac. She has [...] 325 mg by mouth., Disp: , Rfl: ottmvsmuleb-veptfpmfn-kblxdsoh 100-62.5-25 mcg blister with device, , Disp: [...] CTAB, no increased eff (more content not included)...[facility]05-19-2023 NotePROCEDURE: XR HIP RT 2 3V W PELVIS HISTORY: Pain in right hip joint , chronic COMPARISON: XR L-spine 02/26/2019, XR left hip with pelvis 03/11/2017 FINDINGS: BONES:Complete loss of the right hip joint space with feaj-sj-frtq articulation, subchondral sclerosis and cysts, and large periarticular degenerative osteophytes. No fracture or dislocation. Left hip replacement. Mechanical fusion of L5-S1 and moderate dextroscoliosis of lumbar spine. SOFT TISSUES:No visible soft tissue swelling. EFFUSION:None visible. OTHER: Negative. IMPRESSION: 1. Marked degenerative joint disease of the right hip; progressed since prior study. 2. Stable surgical changes. Electronically authenticated by: STEPH GRANADOS Date: 2023-03-24 12:55[facility]23 NoteSubjective 03/23/23 Diana Champion is a 67 [...] LIGATION Past Medical History: Diagnosis Date Cancer ([facility] Hypertension Objective General: Body mass index is [...] from the patient's PCP as well as book retailer for a right anterior total hip arthroplasty. [...] may be an additional personal documentation from me.[facility]04-27-2023 Evaluation note* Encounter Date Diagnosis Assessment [...] PPI induced GI losses. Continue oral Magnesium [employer] [facility] [employer] Other 02-02-2023 [facility]* Encounter Date Diagnosis Assessment Notes Treatment Notes Treatment Clinical Notes Nov, Hypokalemia (ICD-10 - E87.6) Nov, Hypomagnesemia (ICD-10 - E83.42) [employer] Other 10-04-2022 Evaluation note* Encounter Date Diagnosis [...] office does not accept her new insurance. [employer] Other 09-02-2022 Evaluation note* Encounter Date Diagnosis Assessment Notes Treatment Notes Treatment Clinical Notes Jul, History of colon cancer (ICD-10 - Z85.038) [employer] Other 01-12-2022 Evaluation note* Encounter Date Diagnosis [...] potassium wasting. I have prescribed oral potassium. [employer] Other 10-25-2021 Evaluation note* Encounter Date Diagnosis [...] Patient care instructions given in writting by [facility] document [employer] Other Evaluation noteNo InformationNort [employer] Other Evaluation note* Diagnosis Onset Date Resolution Status History of colon cancer [facility] Work Phone: History general Narrative - Reported* [...] IN 08/2019 Hospitalization History HIP REVISION 03/2020 [employer] Other Hiskvhw general Narrative - Reported* Type Description Date [...] History COVID 04/2023 Surgical History back surgery 2002 Surgical History [...] Hospitalization History COVID X 2 WEEKS 04/2023 [employer] Other Hospital Discharge instructions Additional Instructions DISCHARGE [...] if you have any problems. -Office number [phone] Work Phone: Advance Directives No Advanced Directives [...] or prosecute any alcohol or drug abuse patient.[facility] the event this information is protected by the Federal Confidentiality of Alcohol and Drug Abuse Patient Records regulations: The Federal rules restrict any use of the information to criminally investigate or prosecute any alcohol or drug abuse patient.[facility] HospitalIn the event this information is protected by the Federal Confidentiality of Alcohol and Drug Abuse Patient Records regulations: The Federal rules restrict any use of the information to criminally investigate or prosecute any alcohol or drug abuse patient.[facility] HospitalIn the event this information is protected by the Federal Confidentiality of Alcohol and Drug Abuse Patient Records regulations: The Federal rules restrict any use of the information to criminally investigate or prosecute any alcohol or drug abuse patient.[facility] INFORMATION SOURCE (unrecogn ized section and content) DATE CREATED AUTHOR 03/03/2022 [facility] DATE CREATED AUTHOR AUTHOR'S ORGANIZ ATION 04/17/2023 [facility] DATE CREATED AUTHOR AUTHOR'S ORGANIZ ATION 05/08/2023 [facility] DATE CREATED AUTHOR AUTHOR'S ORGANIZ ATION 06/07/2023 [facility] DATE CREATED AUTHOR AUTHOR'S ORGANIZ ATION 11/04/2023 [facility] EPIC DATE CREATED AUTHOR AUTHOR'S ORGANKEVYN ATION 11/28/2023 [facility] REASON FOR VISIT (unrecogniz ed section and [...] BE BASED ON THE PRIMARY CLINICAL RECORDS. [facility]. provides no warranty or guarantee of the accuracy or completeness of information in this document.
--- NOTE | 2023-12-05 10:15 | ECG_ITS ---
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
--- NOTE | 2023-12-05 10:17 | ED_ITS ---
HPI - Dizziness General Chief Complaint: Dizziness Stated Complaint: LIGHT HEADED/DIZZINESS Time Seen by Provider: 12/05/23 09:53 Source: patient Mode of arrival: Wheelchair Limitations: no limitations History of Present Illness HPI Narrative: Patient was going to her PCP's office today when she felt dizzy. They directed her to the ED for evaluation. Patient recently admitted for sepsis secondary to pneumonia. She is currently on antibiotics - continued from what was started in the hospital. No chest pain or shortness of breath today. No headache or blurred vision. She described the dizziness as the sensation that she was going to pass out . She is being treated for thrush and said that she is not drinking much fluid because the taste if off from the thrush and the nystatin . Related Data Home Medications Medication Instructions Recorded Confirmed albuterol sulfate 90 mcg/actuation 2 puff inhalation Q4H PRN 04/10/23 11/25/23 aerosol inhaler shortness of breath or wheezing fluticasone fur. 200 mcg-umeclid 1 inh inhalation Q24H COPD 04/10/23 11/25/23 62.5 mcg-vilant 25 mcg inhalat.powder (Trelegy Ellipta) magnesium oxide 400 mg (241.3 mg 400 mg PO DAILY 04/10/23 11/25/23 magnesium) tablet omeprazole 20 mg capsule,delayed 20 mg PO BID 04/10/23 11/25/23 release losartan 50 mg tablet (Cozaar) 50 mg PO BID 08/21/23 11/25/23 alendronate 35 mg tablet 35 mg PO .weekly 09/14/23 11/25/23 montelukast 10 mg tablet 10 mg PO DAILY 09/14/23 11/25/23 pramipexole 0.25 mg tablet 0.25 mg PO QPM 09/14/23 11/25/23 (Mirapex) amlodipine 5 mg tablet 5 mg PO QDAY 11/25/23 11/25/23 cholecalciferol (vitamin D3) 25 25 mcg PO QDAY 11/25/23 11/25/23 mcg (1,000 unit) tablet paroxetine HCl 30 mg tablet 30 mg PO QDAY 11/25/23 11/25/23 pregabalin 75 mg capsule 75 mg PO BID 11/25/23 11/25/23 sodium chloride 0.9 % for 3 ml inhalation Q8H 11/25/23 11/25/23 nebulization solifenacin 10 mg tablet 10 mg PO QDAY 11/25/23 11/25/23 trazodone 100 mg tablet 100 mg PO .qhs 11/25/23 11/25/23 Previous Rx's Medication Instructions Recorded ipratropium 0.5 mg-albuterol 3 mg 3 ml inhalation Q6H PRN shortness 04/22/23 (2.5 mg base)/3 mL nebulization of breath or wheezing #90 mL soln amoxicillin 500 mg-potassium 1 tab PO Q12H 7 days #14 tabs 12/02/23 clavulanate 125 mg tablet (Augmentin) guaifenesin 600 mg tablet, 600 mg PO BID 10 days #20 tabs 12/02/23 extended release 12 hr (Mucus Relief ER) levofloxacin 750 mg tablet 750 mg PO DAILY 5 days #5 tabs 12/02/23 nystatin 100,000 unit/mL oral 500,000 unit (5 mL) PO QID 7 days 12/02/23 suspension #140 mL prednisone 10 mg tablet 10 mg PO DAILY 15 days #35 tabs 12/02/23 Allergies Allergy/AdvReac Type Severity Reaction Status Date / Time No Known Drug Allergies Allergy Verified 12/05/23 09:58 [facility] Medical History (Updated 12/05/23 @ 12:08 by Chau Burk) Myofascial pain ?M79.18 - Myalgia, other site (ICD-10) Greater trochanteric bursitis ?M70.60 - Trochanteric bursitis, unspecified hip (ICD-10) Osteoarthritis of right hip ?M16.11 - Unilateral primary osteoarthritis, right hip (ICD-10) Chronic, continuous use of opioids ?F11.90 - Opioid use, unspecified, uncomplicated (ICD-10) Lumbar spondylosis ?M47.816 - Spondylosis without myelopathy or radiculopathy, lumbar region (ICD-10) Lumbar postlaminectomy syndrome ?M96.1 - Postlaminectomy syndrome, not elsewhere classified (ICD-10) Lumbar stenosis with neurogenic claudication ?M48.062 - Spinal stenosis, lumbar region with neurogenic claudication (ICD- 10) Depression ?F32.A - Depression, unspecified (ICD-10) Chronic low back pain ?M54.50 - Low back pain, unspecified (ICD-10) ?G89.29 - Other chronic pain (ICD-10) Hypoxia ?R09.02 - Hypoxemia (ICD-10) Heart murmur ?R01.1 - Cardiac murmur, unspecified (ICD-10) Chronic obstructive pulmonary disease ?J44.9 - Chronic obstructive pulmonary disease, unspecified (ICD-10) Asthma ?J45.909 - Unspecified asthma, uncomplicated (ICD-10) Surgical History (Updated 11/26/23 @ 09:40 by Tapan Barboza MD) History of lumbar fusion ?Z98.1 - Arthrodesis status (ICD-10) Social History Smoking status: Never smoker Highest level of school completed/degree received: Associate degree: occupational, technical, vocational program Do you think of yourself as: straight/heterosexual Gender Identity: female Exam Narrative Exam Narrative: Nurses notes and vital signs reviewed and patient is not hypoxic. afebrile General: Well-appearing and in no apparent distress. Skin: Warm, dry, no pallor noted. Head: Normocephalic, atraumatic. Neck: Supple, non-tender. Eye: Pupils are equal, round and EOMI. No scleral icterus. Cardiovascular: Regular Rate and Rhythm without murmur, gallop or rub. Respiratory: No accessory muscle use or respiratory distress. Lungs are clear to auscultation, no wheezing, rales or rhonchi Musculoskeletal: normal ROM, no calf or popliteal tenderness, no lower extremity edema/swelling GI: Abdomen is soft, non-distended. Normal bowel sounds. No tenderness to palpation. No rebound, guarding, or rigidity noted. Neurological: A&O x4. No cranial nerve dysfunction observed. No truncal ataxia. Moves all extremities. Sensation intact. Psychiatric: Cooperative and interactive. Normal mood and affect. Constitutional Vital Signs, click to edit/add: Last Vital Signs Temp 98.8 F 12/05/23 09:58 Pulse 61 12/05/23 10:15 Resp 20 12/05/23 09:58 BP 131/74 12/05/23 11:01 Pulse Ox 95 12/05/23 10:14 O2 Del Method Nasal Cannula 12/05/23 10:14 O2 Flow Rate 2 12/05/23 10:14 Course Vital Signs Vital signs: Vital Signs Temperature 98.8 F 12/05/23 09:58 Pulse Rate 61 12/05/23 09:58 Respiratory Rate 20 12/05/23 09:58 Blood Pressure 118/75 12/05/23 09:58 Pulse Oximetry 96 12/05/23 09:58 Oxygen Delivery Method Nasal Cannula 12/05/23 09:58 Oxygen Delivery Flow Rate 2 12/05/23 09:58 Temperature 98.8 F 12/05/23 09:58 Pulse Rate 61 12/05/23 10:15 Respiratory Rate 20 12/05/23 09:58 Blood Pressure 131/74 12/05/23 11:01 Pulse Oximetry 95 12/05/23 10:14 Oxygen Delivery Method Nasal Cannula 12/05/23 10:14 Oxygen Delivery Flow Rate 2 12/05/23 10:14 MDM - Dizziness MDM Narrative Medical decision making narrative: 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 Blood drawn and sent for evaluation. Orthostatics were positive and the patient admitted she had not been drinking much fluid at home, so the patient received normal saline IV fluid. She felt better after that and was able to ambulate to the bathroom and give a urine sample without any dizziness. WBC elevated but patient is on steroids. UA negative and patient already on antibiotics for pneumonia = she said her cough is less and her breathing better since hospitalization. BMP with normal electrolytes and BUN, Cr at patient's baseline. UA negative. Patient informed of results and discharged home, improved and able to ambulate without dizziness. WBC elevation likely secondary to steroid use. Patient said she will try lemonade and/or gatorade at home - her taste is off due to the thrush and use of nystatin. ED return if she worsens was discussed. Lab Data Attestation: I reviewed the patient's lab results. Labs: Lab Results 12/05/23 12/05/23 Range/Units 10:44 11:40 WBC 20.8 H (4.0-11.0) 10^3/uL RBC 4.38 (4.20-5.40) 10^6/uL Hgb 13.1 (12.0-16.0) g/dL Hct 41.6 (36.0-48.0) % MCV 95.0 (81.0-99.0) fL MCH 29.9 (26.7-34.0) pg MCHC 31.5 (29.9-35.2) g/dL RDW 13.2 (11.0-15.0) % Plt Count 279 (150-450) 10^3/uL MPV 9.1 L (9.5-13.5) fL Seg Neuts % (Manual) 88.0 Band Neutrophils % 1.0 (0-5) % Lymphocytes % (Manual) 7.0 L (20.5-60.0) % Monocytes % (Manual) 4.0 (1.7-12.0) % Eosinophils % (Manual) 0.0 L (0.9-7.0) % Basophils % (Manual) 0.0 L (0.2-2.0) % Neutrophils # (Manual) 18.30 H (1.4-6.5) 10^3/uL Band Neutrophils # 0.2 (0.0-0.3) 10^3/uL Lymphocytes # (Manual) 1.45 (1.20-3.80) 10^3/uL Monocytes # (Manual) 0.83 H (0.30-0.80) 10^3/uL Eosinophils # (Manual) 0.00 (0.00-0.70) 10^3/uL Basophils # (Manual) 0.00 (0.00-0.10) 10^3/uL Sodium 141 (136-145) mmol/L Potassium 3.8 (3.5-5.1) mmol/L Chloride 102 (98-107) mmol/L Carbon Dioxide 33.5 H (21.0-32.0) mmol/L Anion Gap 9.3 BUN 33.0 H (7.0-18.0) mg/dL Creatinine 1.35 H (0.55-1.02) mg/dL Est GFR ( Amer) 47 L (>=60) Est GFR (Non-Af Amer) 39 L (>=60) BUN/Creatinine Ratio 24.4 Glucose 118 H (74-106) mg/dL Calcium 7.8 L (8.5-10.1) mg/dL Urine Color Lt. yellow (YELLOW) Urine Clarity Clear (CLEAR) Urine pH 6.5 (5.0-9.0) Ur Specific [place] 1.015 (1.005-1.025) Urine Protein Negative (NEG/TRACE) mg/dL Urine Glucose (UA) Negative (NEGATIVE) mg/dL Urine Ketones Negative (NEGATIVE) mg/dL Urine Occult Blood Negative (NEGATIVE) Urine Nitrite Negative (NEGATIVE) Urine Bilirubin Negative (NEGATIVE) Urine Urobilinogen 0.2 (0.2-1.0) EU/dL Ur Leukocyte Esterase Negative (NEGATIVE) ECG Data Attestation: I personally reviewed and interpreted this ECG as follows: Interpretation: EKG interpretation: Emergency Department physician interpretation. Normal sinus rhythm at 60bpm. Incomplete left bundle branch block. Discharge Plan Discharge Chief Complaint: Dizziness Clinical Impression: Acute dehydration, Orthostasis, Leukocytosis Patient Disposition: Home, Self-Care Time of Disposition Decision: 12:08 Prescriptions / Home Meds: No Action magnesium oxide 400 mg (241.3 mg magnesium) tablet 400 mg PO DAILY Rx Instructions: WITH FOOD omeprazole 20 mg capsule,delayed release(DR/EC) 20 mg PO BID albuterol sulfate 90 mcg/actuation HFA aerosol inhaler 2 puff INHALATION Q4H PRN (Reason: shortness of breath or wheezing) Trelegy Ellipta 200-62.5-25 mcg blister with device 1 inh INHALATION Q24H ipratropium-albuterol 0.5 mg-3 mg(2.5 mg base)/3 mL solution for nebulization 3 ml inhalation Q6H PRN (Reason: shortness of breath or wheezing) Qty: 90 0RF losartan [Cozaar] 50 mg tablet 50 mg PO BID alendronate 35 mg tablet 35 mg PO .weekly pramipexole [Mirapex] 0.25 mg tablet 0.25 mg PO QPM Rx Instructions: administer 2 - 3 hours before bedtime montelukast 10 mg tablet 10 mg PO DAILY amlodipine 5 mg tablet 5 mg PO QDAY cholecalciferol (vitamin D3) 25 mcg (1,000 unit) tablet 25 mcg PO QDAY paroxetine HCl 30 mg tablet 30 mg PO QDAY pregabalin 75 mg capsule 75 mg PO BID sodium chloride 0.9 % solution for nebulization 3 ml INHALATION Q8H solifenacin 10 mg tablet 10 mg PO QDAY trazodone 100 mg tablet 100 mg PO .qhs nystatin 100,000 unit/mL Suspension 500,000 unit PO QID 7 Days Qty: 140 0RF guaifenesin [Mucus Relief ER] 600 mg Tablet Extended Release 12hr 600 mg PO BID 10 Days Qty: 20 0RF levofloxacin 750 mg tablet 750 mg PO DAILY 5 Days Qty: 5 0RF amoxicillin-pot clavulanate [Augmentin] 500-125 mg tablet 1 tab PO Q12H 7 Days Qty: 14 0RF prednisone 10 mg tablet 10 mg PO DAILY 15 Days Qty: 35 0RF Rx Instructions: 40mg daily x 5 days, then 20mg daily x 5 days, then 10mg daily x 5 days, then stop Instructions: Dehydration (ED), Leukocytosis (ED) Stand Alone Forms: Portal Instructions Referrals: Shaikh Ohara MD [Primary Care Provider] - 1 week
[2023-12-05] MEDS: 0.9 % SODIUM CHLORIDE 1,000 ML 999 ML IV (10:35)
[2023-12-05 10:53] LABS: Hematocrit 41.6 % (36.0-48.0); Hemoglobin 13.1 g/dL (12.0-16.0); Mean Corpuscular HGB Conc 31.5 g/dL (29.9-35.2); Mean Corpuscular Hemoglobin 29.9 pg (26.7-34.0); Mean Platelet Volume 9.1 fL (9.5-13.5); Platelet Count 279 10^3/uL (150-450); Red Blood Count 4.38 10^6/uL (4.20-5.40); Red Cell Distribution Width 13.2 % (11.0-15.0); White Blood Count 20.8 10^3/uL (4.0-11.0)
[2023-12-05 11:06] LABS: Band Neutrophils Absolute 0.2 10^3/uL (0.0-0.3); Lymphocytes Absolute Manual 1.45 10^3/uL (1.20-3.80); Monocytes Absolute Manual 0.83 10^3/uL (0.30-0.80)
[2023-12-05 11:07] LABS: Anion Gap 9.3; BUN Creatinine Ratio 24.4; Calcium 7.8 mg/dL (8.5-10.1); Carbon Dioxide 33.5 mmol/L (21.0-32.0); Chloride 102 mmol/L (98-107); Estimated GFR (African America 47 (>=60); Estimated GFR (Non-African Ame 39 (>=60); Glucose 118 mg/dL (74-106); Potassium 3.8 mmol/L (3.5-5.1); Sodium 141 mmol/L (136-145)
[2023-12-05 11:51] LABS: Bilirubin Urine NEGATIVE (NEGATIVE); Blood Urine NEGATIVE (NEGATIVE); Clarity Urine CLEAR (CLEAR); Color Urine LT. YELLOW (YELLOW); Glucose Urine UA NEGATIVE (NEGATIVE); Ketones Urine NEGATIVE (NEGATIVE); Leukocyte Esterase Urine NEGATIVE (NEGATIVE); Nitrite Urine NEGATIVE (NEGATIVE); Protein Urine NEGATIVE (NEG/TRACE); Specific Gravity Urine 1.015 (1.005-1.025); Urobilinogen Urine 0.2 EU/dL (0.2-1.0); pH Urine 6.5 (5.0-9.0)
[2023-12-05 11:53] LABS: Urine Microscopic Indicated NO
== END 2023-12-05 12:27 | disposition home or self-care (01) ==
PROVIDERS: Emergency Provider Emergency Medicine; PCP Internal Medicine
DX: E86.0 Dehydration (principal); I95.1 Orthostatic hypotension; D72.829 Elevated white blood cell count, unspecified; Z79.899 Other long term (current) drug therapy; M16.11 Unilateral primary osteoarthritis, right hip; M47.816 Spondylosis without myelopathy or radiculopathy, lumbar region; F11.90 Opioid use, unspecified, uncomplicated; M96.1 Postlaminectomy syndrome, not elsewhere classified; M48.062 Spinal stenosis, lumbar region with neurogenic claudication; F32.A Depression, unspecified; G89.29 Other chronic pain; J44.9 Chronic obstructive pulmonary disease, unspecified; Z98.1 Arthrodesis status; Z87.01 Personal history of pneumonia (recurrent)
CPT/HCPCS: 36415; 80048; 81003; 85007; 85027; 93005; 99284

== ENCOUNTER 2023-12-18 06:43 | Day surgery (SDC) | payer OTHER, SELFPAY ==
--- OUTSIDE RECORDS SUMMARY | 2023-12-18 06:46 | XMS_ITS | CCD ---
Author Name Unknown Address [address] [place] [address] Organization [facility] Care Team Providers Care Slip Caster Name Role Phone Steph Collier Attending Provider Unavailable Chantel Rainey Primary Care Provider Unavailabl e JoanaHerberth Attending Provider Unavailable Unavailable Primary Care Provider Unavailabl e UNKNOWN, PHYSICIAN Referring Unavailable JOO LINN Attending Unavailable JOO LINN Admitting Unavailable UNKNOWN, PHYSICIAN Primary Care Unavailable Rena Hurd Unavailable JoanaHerberth epps Unavailable Gato Domingo Unavailable Steph Collier Attending Provider MD Gato Domingo Attending Provider [phone] MD Nicky Ohara Primary Care Provider Gilma [...] e FABIRD, SAUNDERS H Primary Care Unavailable WITTER, DR BRITTANY Elizondo Consulting Unavailable DARWIN, DR [...] Attending Unavailable FAWWAD, SAUNDERS H Consulting Unavailable [facility] Attending Unavailable JOO LINN Attending Unavailable Fawwad, Saunders Primary Care Unavailable Gato Domingo Attending UnavailGato Chatterjee Admitting Unavailabl e Alicia DRAPER, Andrius Johnson Attending Unavailable Lenchoitis , Andrius Alex Attending Unavailable Alicia DRAPER, Andrius Vricardo Attending Unavailable FAWWAD, SAUNDERS Attending Unavailable FAWWAD, SAUNDERS Attending Unavailable FAWWAD, SAUNDERS Attending Unavailable Unavailable Unavailable Unavailable Allergies Allergy Classification Reported Allergen(s) Allergy Type Date of Onset Reaction(s) Facility (3 sources) fentaNYL; Translations: [fentanyl] Drug Allergy 07-07-[address] [facility] (2 sources) linezolid; Translations: [LINEZOLID] Drug Allergy 03-17-20 20 [facility] (20 sources) Vancomycin; Translations: [VANCOMYCIN] Drug Allergy 03-17-20 20 Unknown [facility]ository (11 sources) DENIES METAL SENSITITIVITY Propensity to adverse reactions Unknown [employer] Other Medications Current Medications Medication Drug Class(es) [...] Oral Bedtime July 07, 2017 10:21am famotidine ([facility] ID) 20 mg tablet Take 20 mg [...] each nostril Nasally Once a day Active Nwuqvqdwiis-Mfmprrcuv-Ne lanter (1 source) Star t: 02-0 2-20 23 Eabvjcrvwxv-Ngxqphskf-B ilanter (Trelegy Ellipta) 200-62.5-25 mcg blister with [...] 1 puff(s) by inhalation twice daily Ipratropium Goodman Active 2 PUFF Inhalation Twice daily July [...] Orally Once a day for 90 days 04 Oct, 2022 Active montelukast 10 mg oral tablet (11 [...] 07, 2017 10:21am take 1 capsule by [facility] every twelve hours Omeprazole 20 MG 1 [...] Active Start: 08-05-2022 take 1 tablet by [facility] every twelve hours Potassium Chloride [...] Interpretation Reference Range Facility Follow-Upon 05-08-2023 Follow-Up [id number] Nell Champion Meng 1955 F Date Provider Department Center 05/08/2023 Siddharth-SHIRLEYJVHETAL SCHNEIDER CARD [facility] Family History Problem Relation Age of Onset Heart failure Mother Heart disease Father Family Status - Relation Status Age at Mother Father Level of Service:30809 [place] OFFICE/OUTPATIENT ESTABLISHED LOW MDM 20-29 MIN [facility] 05-03-2023 36 PATIENT CALLED TO CANCEL SURGERY FOR July D/T HER LUNG DISEASE. WILL CALL TO RESCHEDULE WHEN FULLY HEALED FROM LUNGS AND CLEARED//[facility] 3604-19-2023 36 FYI CALLED PATIENT T O F/U ON MEDICAL AND PULMONARY CLEARANCES FOR R ELZA ON 05/19 AND PRE-OP RIYA'T 04/27 WITH US AND PATIENT IS CURRENTLY INPATIENT SINCE LAST WEEK D/T COVID AND PULMONARY ISSUES, SHE WILL CALL US ON 04/25 WITH PROGRESS, PLEASE ADVISE IF WE SHOULD CANCEL SURGERY FOR NOW..THANKS//[facility] SYMPTOMATIC COVID-19 ANTIGEN on 04-04-2023 EUA Statement SEE BELOW Normal [facility] Comment on above: Result Comment: This test [...] sooner. Performed By: #### C VDAGS #### [facility] [address] [place] [address] Dr. Shayne Roldan SARS-CoV-2 (COVID-19) RNA KAYLEE+probe Ql (Unsp spec) Positive Abnormal NEGATIVE [facility] Comment on above: Performed By: #### C VDAGS #### [facility] [address] [address] [address] Shayne Roldan XR LSPINE 2_3 VIEWSon [...] STEPH GRANADOS Date: 2023-03-24 12:52 Normal [facility] PTH INTACTon 02-27-2023 PTH, Intact 87 pg/mL Critically high 15-65 [facility] Comment on above: Performed By: #### P THINT #### [facility] [address] [address] [address] Shayne Roldan HEMOGRAM AND PLATELon 2022 Hematocrit (Bld) [Volume fraction] 44.4 % Normal 36.0-48.0 [facility] Comment on above: Performed By: #### H H #### [facility] [address] [address] [address] Shayne Roldan Hemoglobin (Bld) [Mass/Vol] 14.5 g/dL Normal 12.0-16.0 [facility] Comment on above: Performed By: #### H H #### [facility] [address] [address] [address] Shayne Roldan MCH (RBC) [Entitic mass] 30.3 pg Normal 26.7-34.0 [facility] Comment on above: Performed By: #### H H #### [facility] [address] [address] [address] Shayne Roldan MCHC (RBC) [Mass/Vol] 32.7 g/dL Normal 29.9-35.2 [facility] Comment on above: Performed By: #### H H #### [facility] [address] [place] [address] Dr. Shayne Roldan MCV (RBC) [Entitic vol] 92.9 fL Normal 81.0-99.0 [facility] Comment on above: Performed By: #### H H #### [facility] [address] [place] [address] Dr. Shayne Roldan PLT 367 103/ul Normal 150-450 [facility] Comment on above: Performed By: #### H H #### [facility] [address] [place] [address] Dr. Shayne Roldan RBC 4.78 106/ul Normal 4.20-5.40 [facility] Comment on above: Performed By: #### H H #### [facility] [address] [place] [address] Dr. Shayne Roldan WBC 9.9 103/ul Normal 4.0-11.0 [facility] Comment on above: Performed By: #### H H #### [facility] [address] [place] [address] Dr. Shayne Roldan MAGNESIUMon 02-25-2023 Magnesium [Mass/Vol] 1.6 mg/dL Critically low 1.8-2.4 [facility] Comment on above: Performed By: #### M G, RENAL, URIC #### [facility] [address] [place] [address] Dr. Shayne Roldan RENAL FUNCTION PANELon 02-25 Albumin [Mass/Vol] 3.4 g/dL Normal 3.4-5.0 [facility] Comment on above: Performed By: #### M G, RENAL, URIC #### [facility] [address] [place] [address] Dr. Shayne Roldan Calcium [Mass/Vol] 8.7 mg/dL Normal 8.5-10.1 [facility] Comment on above: Performed By: #### M G, RENAL, URIC #### [facility] [address] [place] [address] Dr. Shayne Roldan Chloride [Moles/Vol] 104 mmol/L Normal 98-107 [facility] Comment on above: Performed By: #### M G, RENAL, URIC #### [facility] [address] [address] [address] Shayne Roldan CO2 [Moles/Vol] 25.9 mmol/L Normal 21.0-32.0 [facility] Comment on above: Performed By: #### M G, RENAL, URIC #### [facility] [address] [address] [address] Shayne Roldan Creatinine [Mass/Vol] 1.19 mg/dL Critically high 0.55-1.02 [facility] Comment on above: Performed By: #### M G, RENAL, URIC #### [facility] [address] [place] [address] Dr. Shayne Roldan EGFR-AF ETHIOPIAN 55 mL/min/1.73m2 Critically low >=60 [facility] Comment on above: Performed By: #### M G, RENAL, URIC #### [facility] [address] [place] [address] Dr. Shayne Roldan EGFR-NON AF ETHIOPIAN 45 mL/min/1.73m2 Critically low >=60 [facility] Comment on above: Performed By: #### M G, RENAL, URIC #### [facility] [address] [place] [address] Dr. Shayne Roldan Glucose [Mass/Vol] 193 mg/dL Critically high 74-106 [facility] Comment on above: Performed By: #### M G, RENAL, URIC #### [facility] [address] [address] [address] Shayne Roldan Phosphate [Mass/Vol] 3.2 mg/dL Normal 2.6-4.7 [facility] Comment on above: Performed By: #### M G, RENAL, URIC #### [facility] [address] [address] [address] Shayne Roldan Potassium [Moles/Vol] 3.9 mmol/L Normal 3.5-5.1 [facility] Comment on above: Performed By: #### M G, RENAL, URIC #### [facility] [address] [address] [address] Shayne Roldan Sodium [Moles/Vol] 140 mmol/L Normal 136-[address] [facility] Comment on above: Performed By: #### M G, RENAL, URIC #### [facility] [address] [place] [address] Dr. Shayne Roldan Urea nitrogen [Mass/Vol] 17.0 mg/dL Normal 7.0-18.0 [facility] Comment on above: Performed By: #### M G, RENAL, URIC #### [facility] [address] [place] [address] Dr. Shayne Roldan UA RANDOM W/MICROSCOPICon BACTERIA TRACE Abnormal NONE SEEN [facility] Comment on above: Performed By: #### M G, RENAL, URIC #### [facility] [address] [place] [address] Dr. Shayne Roldan Bilirubin Ql (U) Negative Normal NEGATIVE [facility] Comment on above: Performed By: #### M G, RENAL, URIC #### [facility] [address] [place] [address] Dr. Shayne Roldan CAST NONE SEEN Normal NONE SEEN [facility] Comment on above: Performed By: #### M G, RENAL, URIC #### [facility] [address] [place] [address] Dr. Shayne Roldan Clarity (U) CLEAR Normal CLEAR [facility] Comment on above: Performed By: #### M G, RENAL, URIC #### [facility] [address] [place] [address] Dr. Shayne Roldan Color (U) LT. YELLOW Normal YELLOW [facility] Comment on above: Performed By: #### M G, RENAL, URIC #### [facility] [address] [place] [address] Dr. Shayne Roldan Crystals LM Nom (Urine sed) NONE SEEN Normal NONE SEEN [facility] Comment on above: Performed By: #### M G, RENAL, URIC #### [facility] [address] [place] [address] Dr. Shayne Roldan Epithelial cells LM Ql (Urine sed) RARE Normal NONE SEEN /RARE [facility] Comment on above: Performed By: #### M G, RENAL, URIC #### [facility] [address] [address] [address] Shayne Roldan Glucose Ql (U) Negative Normal NEGATIVE [facility] Comment on above: Performed By: #### M G, RENAL, URIC #### [facility] [address] [address] [address] Shayne Roldan Hemoglobin Ql (U) Negative Normal NEGATIVE [facility] Comment on above: Performed By: #### M G, RENAL, URIC #### [facility] [address] [address] [address] Shayne Roldan Ketones Ql (U) Negative Normal NEGATIVE [facility] Comment on above: Performed By: #### M G, RENAL, URIC #### [facility] [address] [place] [address] Dr. Shayne Roldan LEUKOCYTES Negative Normal NEGATIVE [facility] Comment on above: Performed By: #### M G, RENAL, URIC #### [facility] [address] [address] [address] Shayne Roldan MUCOUS NONE SEEN Normal NONE SEEN [facility] Comment on above: Performed By: #### M G, RENAL, URIC #### [facility] [address] [place] [address] Dr. Shayne Roldan Nitrite Ql (U) Negative Normal NEGATIVE [facility] Comment on above: Performed By: #### M G, RENAL, URIC #### [facility] [address] [address] [address] Shayne Roldan pH (U) 5.0 [pH] Normal 5-9 [facility] Comment on above: Performed By: #### M G, RENAL, URIC #### [facility] [address] [place] [address] Dr. Shayne Roldan RBC 0-2 Normal 0-2 [facility] Comment on above: Performed By: #### M G, RENAL, URIC #### [facility] [address] [address] [address] Shayne Roldan SPEC GRAVITY 1.025 Normal 1.005-<=1.025 [facility] Comment on above: Performed By: #### M G, RENAL, URIC #### [facility] [address] [place] [address] Dr. Shayne Roldan UA PROTEIN Negative Normal NEGATIVE/ TRACE [facility] Comment on above: Performed By: #### M G, RENAL, URIC #### [facility] [address] [address] [address] Shayne Roldan Urobilinogen Qn (U) 0.2 {Rogelio'U}/dL Normal 0.2 - 1. 0 [facility] Comment on above: Performed By: #### M G, RENAL, URIC #### [facility] [address] [place] [address] Dr. Shayne Roldan WBC 0-2 Abnormal NONE SEEN [facility] Comment on above: Performed By: #### M G, RENAL, URIC #### [facility] [address] [place] [address] Dr. Shayne Roldan URIC ACID SERUMon 02-25-2023 Urate [Mass/Vol] 6.1 mg/dL Critically high 2.6-6.0 [facility] Comment on above: Performed By: #### M G, RENAL, URIC #### [facility] [address] [place] [address] Dr. Shayne Roldan URINE T PROTEIN CREAT RATIOo n 02-25-2023 Protein (U) [Mass/Vol] 13.0 mg/dL Critically high <=12.0 [facility] Comment on above: Performed By: #### M G, RENAL, URIC #### [facility] [address] [address] [address] Shayne Roldan UR PROT CREAT RAT 0.16 Normal [facility] Comment on above: Performed By: #### M G, RENAL, URIC #### [facility] [address] [place] [address] Dr. Shayne Roldan URINE CREAT 83.60 mg/dL Normal 20.00-300.00 [facility] Comment on above: Performed By: #### M G, RENAL, URIC #### [facility] [address] [place], [place] [address] Dr. Shayne Roldan VITAMIN D 25 OHon 02-25-2023 VIT D 25-OH 41.6 ng/mL Normal [facility] Comment on above: Performed By: #### M G, RENAL, URIC #### [facility] [address] [place], [place] [address] Dr. Shayne Roldan VIT D RANGES SEE BELOW Normal [facility] Comment on above: Result Comment: <20 ng/mL Vit D deficient 20 - <30 ng/mL Vit D insufficient 30 - 100 ng/mL Vit D sufficient >100 ng/mL Potential Toxicity Performed By: #### M G, RENAL, URIC #### [facility] [address] [address] [address] Shayne Roldan XR CHEST 2 Von [...] GALDAMEZ Date: 2023-02-22 16:15 Normal [facility] MG MAMM SCREEN 3D PRATEEK CADon 12-15-2022 MG MAMM SCREEN 3D PRATEEK CAD Patient: DIANA CHAMPION Exam Date: 12/15/2022 : 1955 Gender:F Ordering : DR JACK HALL . Admission #: [id number] Family : Order #: [id number] CLICK HERE TO VIEW EXAM RADIOLOGY REPORT PROCEDURE: MAMMOGRAM SCREENING 3D BILATERAL CAD COMPARISON: MG MAMM SCREEN 3D PRATEEK CAD, 11/26/2021. INDICATIONS: Calculator Name NCI Breast Cancer Risk Assessment Tool 5 Year Breast Cancer Risk 1.20% Lifetime Breast Cancer Risk 4.40% Personal Breast Cancer No Personal Ovarian Cancer No Treatments Excision, radiation, chemotherapy Family Cancers None LOCATION: [facility] BREAST COMPOSITION: Almost entirely fatty. FINDINGS: [...] Walters MD on 12/15/2022 at 10:51 Normal [facility] XR DEXA BONE DENSITYon 12-15 XR [...] by: STEPH GRANADOS Date: 2022-12-15 09:50 Normal [facility] Fran 12-08-2022 L - -------- Specimen: [id number] Received: 12/08/22 Status: CELIA Oleaсергей Num: [id number] Spec Type: Surgical Subm Dr: Gato Domingo MD Tissues: A Colon Biopsy (DESC COL POLYP) Procedures: HE/2, Gross/Micro L4 -------- Age/ Patient Sex Location Account Attending Physician -------- Diana Champion 67/F [id number] Gato Domingo MD -------- SPEC NUM: [id number] RECD: 12/08/221006 STATUS: CELIA MARTIN NUM: [id number] KENDRA: 12/08/2240 [facility] DR: Gato Domingo MD ENTERED: 12/08/[address] [facility] [address]: KHRIS TYPE: Surgical DEPT: S ENTERED BY: [id number] RECV BY: [id number] ORDERED: HE/2, Gross/Micro L4 ORDERED: HE/2, Gross/Micro [...] support the above pathologic diagnosis. CPT Codes 12415 -------- -------- Specimen: [id number] Received: 12/08/22 Status: CELIA Eliza Num: [id number] Spec Type: Surgical Subm Dr: Gato Domingo MD Tissues: A Colon Biopsy (DESC COL POLYP) Procedures: HE/2, Gross/Micro L4 -------- Patient: Diana Champion [id number] (Continued) -------- Signed (signature on file) Eunice Rosa MD 12/09/22 1671 [facility] PAP ACOG PANEL 2: 30 to 65on 11-16-2022 . . Normal [facility] Comment on above: Performed By: #### [id number] #### [facility] [address] [address] [address] Shayne Roldan Age Gdln ACOG Testing Comment [facility] Comment on above: Result Comment: <21 or >65 or no age provided Performed By: #### [id number] #### [facility] [address] [address] [address] Shayne Roldan DIAGNOSIS: Comment [facility] Comment on above: Result Comment: NEGA TIVE FOR INTRAEPITHELIAL LESION OR MALIGNANCY. Performed By: #### [id number] #### [facility] [address] [place] [address] Dr. Shayne Roldan Methodology: Comment [facility] Comment on above: Result Comment: This liquid based ThinPrep(R) pap test was screened with the use of an image guided system. Performed By: #### [id number] #### [facility] [address] [place] [address] Dr. Shayne Roldan Note: Comment [facility] Comment on above: Result Comment: The Pap smear is a screening test designed to aid in the detection of premalignant and malignant conditions of the uterine cervix. It is not a diagnostic procedure and should not be used as the sole means of detecting cervical cancer. Both false-positive and false-negative reports do occur. . Performed By: #### 4 [id number] #### [facility] [address] [place] [address] Dr. Shayne Roldan Performed by: Comment [facility] Comment on above: Result Comment: Onur Aguilar Champagne Maker (ASCP) Performed By: #### 4 [id number] #### [facility] [address] [place] [address] Dr. Shayne Roldan Specimen adequacy: Comment [facility] Comment on above: Result Comment: Sati sfactory for evaluation. Endocervical and/or squamous metaplastic cells (endocervical component) are present. Performed By: #### 4 [id number] #### [facility] [address] [address] [address] Shayne Roldan RENAL FUNCTION PANELon 08-19 Albumin [Mass/Vol] 3.4 g/dL Normal 3.4-5.[address] [facility] Comment on above: Performed By: #### M G, RENAL, URIC #### [facility] [address] [address] [address] Shayne Roldan Calcium [Mass/Vol] 8.4 mg/dL Critically low 8.5-10.1 [facility] Comment on above: Performed By: #### M G, RENAL, URIC #### [facility] [address] [address] [address] Shayne Roldan Chloride [Moles/Vol] 103 mmol/L Normal 98-107 [facility] Comment on above: Performed By: #### M G, RENAL, URIC #### [facility] [address] [place] [address] Dr. Shayne Roldan CO2 [Moles/Vol] 27.8 mmol/L Normal 21.0-32.0 [facility] Comment on above: Performed By: #### M G, RENAL, URIC #### [facility] [address] [place] [address] Dr. Shayne Roldan Creatinine [Mass/Vol] 1.02 mg/dL Normal 0.55-1.02 [facility] Comment on above: Performed By: #### M G, RENAL, URIC #### [facility] [address] [place] [address] Dr. Shayne Roldan EGFR-AF ETHIOPIAN >60 Normal >=60 [facility] Comment on above: Performed By: #### M G, RENAL, URIC #### [facility] [address] [place] [address] Dr. Shayne Roldan EGFR-NON AF ETHIOPIAN 54 mL/min/1.73m2 Critically low >=60 [facility] Comment on above: Performed By: #### M G, RENAL, URIC #### [facility] [address] [address] [address] Shayne Roldan Glucose [Mass/Vol] 110 mg/dL Critically high 74-106 [facility] Comment on above: Performed By: #### M G, RENAL, URIC #### [facility] [address] [place] [address] Dr. Shayne Roldan Phosphate [Mass/Vol] 2.3 mg/dL Critically low 2.6-4.7 [facility] Comment on above: Performed By: #### M G, RENAL, URIC #### [facility] [address] [place] [address] Dr. Shayne Roldan Potassium [Moles/Vol] 3.2 mmol/L Critically low 3.5-5.1 [facility] Comment on above: Performed By: #### M G, RENAL, URIC #### [facility] [address] [place] [address] Dr. Shayne Roldan Sodium [Moles/Vol] 138 mmol/L Normal 136-[address] [facility] Comment on above: Performed By: #### M G, RENAL, URIC #### [facility] [address] [place] [address] Dr. Shayne Roldan Urea nitrogen [Mass/Vol] 14.0 mg/dL Normal 7.0-18.0 [facility] Comment on above: Performed By: #### M G, RENAL, URIC #### [facility] [address] [place] [address] Dr. Shayne Roldan PTH INTACTon 08-06-2022 PTH, Intact 40 pg/mL Normal 15-65 [facility] Comment on above: Performed By: #### M G, RENAL, URIC #### [facility] [address] [place] [address] Dr. Shayne Roldan HEMOGRAM AND PLATELon 2021 Hematocrit (Bld) [Volume fraction] 39.8 % Normal 36.0-48.0 [facility] Comment on above: Performed By: #### M G, RENAL, URIC #### [facility] [address] [place] [address] Dr. Shayne Roldan Hemoglobin (Bld) [Mass/Vol] 13.4 g/dL Normal 12.0-16.0 [facility] Comment on above: Performed By: #### M G, RENAL, URIC #### [facility] [address] [place] [address] Dr. Shayne Roldan MCH (RBC) [Entitic mass] 30.5 pg Normal 26.7-34.0 [facility] Comment on above: Performed By: #### M G, RENAL, URIC #### [facility] [address] [place] [address] Dr. Shayne Roldan MCHC (RBC) [Mass/Vol] 33.7 g/dL Normal 29.9-35.2 [facility] Comment on above: Performed By: #### M G, RENAL, URIC #### [facility] [address] [place] [address] Dr. Shayne Roldan MCV (RBC) [Entitic vol] 90.5 fL Normal 81.0-99.0 [facility] Comment on above: Performed By: #### M G, RENAL, URIC #### [facility] [address] [place] [address] Dr. Shayne Roldan PLT 299 103/ul Normal 150-450 [facility] Comment on above: Performed By: #### M G, RENAL, URIC #### [facility] [address] [place] [address] Dr. Shayne Roldan RBC 4.40 106/ul Normal 4.20-5.40 [facility] Comment on above: Performed By: #### M G, RENAL, URIC #### [facility] [address] [place] [address] Dr. Shayne Roldan WBC 8.8 103/ul Normal 4.0-11.0 [facility] Comment on above: Performed By: #### M G, RENAL, URIC #### [facility] [address] [place] [address] Dr. Shayne Roldan MAGNESIUMon 08-05-2022 Magnesium [Mass/Vol] 1.5 mg/dL Critically low 1.8-2.4 [facility] Comment on above: Performed By: #### M G, RENAL, URIC #### [facility] [address] [place] [address] Dr. Shayne Roldan RENAL FUNCTION PANELon 08-05 Albumin [Mass/Vol] 3.5 g/dL Normal 3.4-5.[address] [facility] Comment on above: Performed By: #### M G, RENAL, URIC #### [facility] [address] [address] [address] Shayne Roldan Calcium [Mass/Vol] 8.4 mg/dL Critically low 8.5-10.1 [facility] Comment on above: Performed By: #### M G, RENAL, URIC #### [facility] [address] [address] [address] Shayne Roldan Chloride [Moles/Vol] 101 mmol/L Normal 98-107 [facility] Comment on above: Performed By: #### M G, RENAL, URIC #### [facility] [address] [place] [address] Dr. Shayne Roldan CO2 [Moles/Vol] 29.5 mmol/L Normal 21.0-32.0 [facility] Comment on above: Performed By: #### M G, RENAL, URIC #### [facility] [address] [address] [address] Shayne Roldan Creatinine [Mass/Vol] 1.04 mg/dL Critically high 0.55-1.02 [facility] Comment on above: Performed By: #### M G, RENAL, URIC #### [facility] [address] [address] [address] Shayne Roldan EGFR-AF ETHIOPIAN >60 Normal >=60 [facility] Comment on above: Performed By: #### M G, RENAL, URIC #### [facility] [address] [address] [address] Shayne Roldan EGFR-NON AF ETHIOPIAN 53 mL/min/1.73m2 Critically low >=60 [facility] Comment on above: Performed By: #### M G, RENAL, URIC #### [facility] [address] [address] [address] Shayne Roldan Glucose [Mass/Vol] 92 mg/dL Normal 74-106 [facility] Comment on above: Performed By: #### M G, RENAL, URIC #### [facility] [address] [address] [address] Shayne Roldan Phosphate [Mass/Vol] 2.4 mg/dL Critically low 2.6-4.7 [facility] Comment on above: Performed By: #### M G, RENAL, URIC #### [facility] [address] [place] [address] Dr. Shayne Roldan Potassium [Moles/Vol] 2.8 mmol/L Critically low 3.5-5.1 [facility] Comment on above: Performed By: #### M G, RENAL, URIC #### [facility] [address] [place] [address] Dr. Shayne Roldan Sodium [Moles/Vol] 137 mmol/L Normal 136-[address] [facility] Comment on above: Performed By: #### M G, RENAL, URIC #### [facility] [address] [place] [address] Dr. Shayne Roldan Urea nitrogen [Mass/Vol] 10.0 mg/dL Normal 7.0-18.0 [facility] Comment on above: Performed By: #### M G, RENAL, URIC #### [facility] [address] [place] [address] Dr. Shayne Roldan UA RANDOM W/MICROSCOPICon BACTERIA SMALL Abnormal NONE SEEN [facility] Comment on above: Performed By: #### U AMIC #### [facility] [address] [place] [address] Dr. Shayne Roldan Bilirubin Ql (U) Negative Normal NEGATIVE [facility] Comment on above: Performed By: #### U AMIC #### [facility] [address] [place] [address] Dr. Shayne Roldan CAST NONE SEEN Normal NONE SEEN [facility] Comment on above: Performed By: #### U AMIC #### [facility] [address] [place] [address] Dr. Shayne Roldan Clarity (U) CLEAR Normal CLEAR [facility] Comment on above: Performed By: #### U AMIC #### [facility] [address] [address] [address] Shayne Roldan Color (U) LT. YELLOW Normal YELLOW [facility] Comment on above: Performed By: #### U AMIC #### [facility] [address] [address] [address] Shayne Roldan Crystals LM Nom (Urine sed) NONE SEEN Normal NONE SEEN [facility] Comment on above: Performed By: #### U AMIC #### [facility] [address] [address] [address] Shayne Roldan Epithelial cells LM Ql (Urine sed) FEW Abnormal NONE SEEN /RARE [facility] Comment on above: Performed By: #### U AMIC #### [facility] [address] [place] [address] Dr. Shayne Roldan Glucose Ql (U) Negative Normal NEGATIVE [facility] Comment on above: Performed By: #### U AMIC #### [facility] [address] [place] [address] Dr. Shayne Roldan Hemoglobin Ql (U) Negative Normal NEGATIVE [facility] Comment on above: Performed By: #### U AMIC #### [facility] [address] [address] [address] Shayne Roldan Ketones Ql (U) Negative Normal NEGATIVE [facility] Comment on above: Performed By: #### U AMIC #### [facility] [address] [place] [address] Dr. Shayne Roldan LEUKOCYTES TRACE Abnormal NEGATIVE [facility] Comment on above: Performed By: #### U AMIC #### [facility] [address] [place] [address] Dr. Shayne Roldan MUCOUS NONE SEEN Normal NONE SEEN [facility] Comment on above: Performed By: #### U AMIC #### [facility] [address] [place] [address] Dr. Shayne Roldan Nitrite Ql (U) Negative Normal NEGATIVE [facility] Comment on above: Performed By: #### U AMIC #### [facility] [address] [place] [address] Dr. Shayne Roldan pH (U) 6.0 [pH] Normal 5-9 [facility] Comment on above: Performed By: #### U AMIC #### [facility] [address] [place] [address] Dr. Shayne Roldan RBC NONE SEEN Abnormal 0-2 [facility] Comment on above: Performed By: #### U AMIC #### [facility] [address] [address] [address] Shayne Roldan SPEC GRAVITY <=1.005 Abnormal 1.005-<=1.025 [facility] Comment on above: Performed By: #### U AMIC #### [facility] [address] [place] [address] Dr. Shayne Roldan UA PROTEIN Negative Normal NEGATIVE/ TRACE [facility] Comment on above: Performed By: #### U AMIC #### [facility] [address] [place] [address] Dr. Shayne Roldan Urobilinogen Qn (U) 0.2 {Rogelio'U}/dL Normal 0.2 - 1. 0 [facility] Comment on above: Performed By: #### U AMIC #### [facility] [address] [place] [address] Dr. Shayne Roldan WBC 5-10 Abnormal NONE SEEN [facility] Comment on above: Performed By: #### U AMIC #### [facility] [address] [place] [address] Dr. Shayne Roldan URIC ACID SERUMon 08-05-2022 Urate [Mass/Vol] 6.5 mg/dL Critically high 2.6-6.0 [facility] Comment on above: Performed By: #### M G, RENAL, URIC #### [facility] [address] [place] [address] Dr. Shayne Roldan URINE T PROTEIN CREAT RATIOo n 08-05-2022 Protein (U) [Mass/Vol] 4.8 mg/dL Normal <=12.0 [facility] Comment on above: Performed By: #### U RTPCR #### [facility] [address] [place] [address] Dr. Shayne Roldan UR PROT CREAT RAT 0.09 Normal [facility] Comment on above: Performed By: #### U RTPCR #### [facility] [address] [address] [address] Shayne Roldan URINE CREAT 52.65 mg/dL Normal 20.00-300.00 [facility] Comment on above: Performed By: #### U RTPCR #### [facility] [address] [address] [address] Shayne Roldan VITAMIN D 25 OHon 08-05-2022 VIT D 25-OH 38.9 ng/mL Normal [facility] Comment on above: Performed By: #### M G, RENAL, URIC #### [facility] [address] [place] [address] Dr. Shayne Roldan VIT D RANGES SEE BELOW Normal [facility] Comment on above: Result Comment: <20 ng/mL Vit D deficient 20 - <30 ng/mL Vit D insufficient 30 - 100 ng/mL Vit D sufficient >100 ng/mL Potential Toxicity Performed By: #### M G, RENAL, URIC #### [facility] [address] [place] [address] Dr. Shayne Roldan IMMUNOGLOBULINS IGA/IGM/IGG/ IGE QUANTITAon 07-12-2022 Immunoglobulin A, Qn, Serum 295 mg/dL Normal 87-352 [facility] Comment on above: Result Comment: Perf ormed at: CB Performed By: #### M G, RENAL, URIC #### [facility] [address] [address] [address] Shayne Roldan Immunoglobulin E, Total 32 IU/mL Normal 6-495 [facility] Comment on above: Result Comment: Perf ormed at: BN Performed By: #### M G, RENAL, URIC #### [facility] [address] [place] [address] Dr. Shayne Roldan Immunoglobulin G, Qn, Serum 729 mg/dL Normal 586-1602 [facility] Comment on above: Result Comment: Perf ormed at: CB Performed By: #### M G, RENAL, URIC #### [facility] [address] [place] [address] Dr. Shayne Roldan Immunoglobulin M, Qn, Serum 75 mg/dL Normal 26-217 [facility] Comment on above: Result Comment: Perf ormed at: CB Performed By: #### M G, RENAL, URIC #### [facility] [address] [address] [address] Shayne Roldan Abstracton 07-08-2022 Abstract [id number] Nell Champion 1955 F Date Provider Department Center 07/08/2022 JOHANNA MEDINA [facility] Family History Problem Relation Age of Onset Heart failure Mother Heart disease Father Family Status - Relation Status Age at Mother Father Normal [facility] CBC AUTO DIFFon 07-05-2022 BASO # 0.1 103/ul Normal 0.0-0.1 [facility] Comment on above: Performed By: #### M G, RENAL, URIC #### [facility] [address] [address] [address] Shayne Roldan Basophils/100 WBC (Bld) 0.7 % Normal 0.2-2.0 [facility] Comment on above: Performed By: #### M G, RENAL, URIC #### [facility] [address] [address] [address] Shayne Roldan EO # 0.4 103/ul Normal 0.0-0.7 [facility] Comment on above: Performed By: #### M G, RENAL, URIC #### [facility] [address] [address] [address] Shayne Roldan Eosinophils/100 WBC (Bld) 4.4 % Normal 0.9-7.0 [facility] Comment on above: Performed By: #### M G, RENAL, URIC #### [facility] [address] [address] [address] Shayne Roldan Erythrocyte distribution width (RBC) [Ratio] 12.6 % Normal 11.0-15.0 [facility] Comment on above: Performed By: #### M G, RENAL, URIC #### [facility] [address] [address] [address] Shayne Roldan Hematocrit (Bld) [Volume fraction] 40.2 % Normal 36.0-48.0 [facility] Comment on above: Performed By: #### M G, RENAL, URIC #### [facility] [address] [place] [address] Dr. Shayne Roldan Hemoglobin (Bld) [Mass/Vol] 13.6 g/dL Normal 12.0-16.0 [facility] Comment on above: Performed By: #### M G, RENAL, URIC #### [facility] [address] [place] [address] Dr. Shayne Roldan IG # 0.07 10e3/ul Critically high 0.00-0.03 [facility] Comment on above: Performed By: #### M G, RENAL, URIC #### [facility] [address] [place] [address] Dr. Shayne Roldan IG % 0.8 % Critically high 0.0-0.5 [facility] Comment on above: Performed By: #### M G, RENAL, URIC #### [facility] [address] [place] [address] Dr. Shayne Roldan LYMPH # 2.3 103/ul Normal 1.2-3.8 [facility] Comment on above: Performed By: #### M G, RENAL, URIC #### [facility] [address] [place] [address] Dr. Shayne Roldan Lymphocytes/100 WBC (Bld) 24.7 % Normal 20.5-60.0 [facility] Comment on above: Performed By: #### M G, RENAL, URIC #### [facility] [address] [place] [address] Dr. Shayne Roldan MANUAL DIFF REQ NO Normal [facility] Comment on above: Performed By: #### M G, RENAL, URIC #### [facility] [address] [place] [address] Dr. Shayne oRldan MCH (RBC) [Entitic mass] 30.7 pg Normal 26.7-34.0 [facility] Comment on above: Performed By: #### M G, RENAL, URIC #### [facility] [address] [place], [place] [address] Dr. Shayne Roldan MCHC (RBC) [Mass/Vol] 33.8 g/dL Normal 29.9-35.2 [facility] Comment on above: Performed By: #### M G, RENAL, URIC #### [facility] [address] [place] [address] Dr. Shayne Roldan MCV (RBC) [Entitic vol] 90.7 fL Normal 81.0-99.0 [facility] Comment on above: Performed By: #### M G, RENAL, URIC #### [facility] [address] [place] [address] Dr. Shayne Roldan MONO # 0.7 103/ul Normal 0.3-0.8 [facility] Comment on above: Performed By: #### M G, RENAL, URIC #### [facility] [address] [place] [address] Dr. Shayne Roldan Monocytes/100 WBC (Bld) 7.7 % Normal 1.7-12.0 [facility] Comment on above: Performed By: #### M G, RENAL, URIC #### [facility] [address] [place] [address] Dr. Shayne Roldan NEUT # 5.7 103/ul Normal 1.4-6.5 [facility] Comment on above: Performed By: #### M G, RENAL, URIC #### [facility] [address] [place] [address] Dr. Shayne Roldan Neutrophils/100 WBC (Bld) 61.7 % Normal 43.0-75.0 [facility] Comment on above: Performed By: #### M G, RENAL, URIC #### [facility] [address] [place] [address] Dr. Shayne Roldan Platelet mean volume (Bld) [Entitic vol] 8.8 fL Critically low 9.5-13.5 [facility] Comment on above: Performed By: #### M G, RENAL, URIC #### [facility] [address] [place] [address] Dr. Shayne Roldan PLT 279 103/ul Normal 150-450 [facility] Comment on above: Performed By: #### M G, RENAL, URIC #### [facility] [address] [place], [place] [address] Dr. Shayne Roldan RBC 4.43 106/ul Normal 4.20-5.40 [facility] Comment on above: Performed By: #### M G, RENAL, URIC #### [facility] [address] [place], [place] [address] Dr. Shayne Roldan WBC 9.1 103/ul Normal 4.0-11.0 [facility] Comment on above: Performed By: #### M G, RENAL, URIC #### [facility] [address] [place], [place] [address] Dr. Shayne Roldan Covid-19 PCR ([facility])on SARS-CoV-2 (COVID-19) RNA KAYLEE+probe Ql (Unsp spec) Not detected Normal NOT DETECTED [facility] Comment on above: Result Comment: This test is not yet approved or cleared by the [place] FDA. When there are no FDA-approved or cleared tests available, and other criteria are met, FDA can make tests available under an emergency access mechanism called an Emergency Use Authorization (EUA). The EUA for this test is supported by the [place] of Health and Human Service's (HHS's) declaration [...] By: #### M G, RENAL, URIC #### [facility] [address] [place], [place] [address] Dr. Shayne Roldan XR CHEST 2 Von [...] NARDA LONDONO Date: 2022-06-08 19:58 Normal [facility] Covid-19 PCR ([facility])on SARS-CoV-2 (COVID-19) RNA KAYLEE+probe Ql (Unsp spec) Not detected Normal NOT DETECTED [facility] Comment on above: Result Comment: This test is not yet approved or cleared by the [place] FDA. When there are no FDA-approved or cleared tests available, and other criteria are met, FDA can make tests available under an emergency access mechanism called an Emergency Use Authorization (EUA). The EUA for this test is supported by the [place] of Health and Human Service's (HHS's) declaration [...] consistent with SARS-CoV-2. Performed By: #### [facility] #### [facility] [address] [place] [address] Dr. Shayne Roldan DEXA AXIALon 03-01-2022 DEXA AXIAL [facility] Department of Radiology [address] [place] [address] Patient Name: DIANA CHAMPION : 1955 Sex: F Age: Race: White Pt. Location: 84 Patient Status: D Ordered Date: 02/24/2022 1:25:00 PM Completed Date: 03/01/2022 09:46 AM Requesting Provider: CINDA ANTONIO Attending Provider: Report Copy To: Signs & Symptoms: Z78.0 Asymptomatic menopausal state I10 History: Glennie Comments: Exam: DEXA AXIAL DEXA AXIAL 03/01/2022 [...] characteristics. Electronically signed: Luzma Fernandez. Transcribed by: [email or web address], User Resident: Electronically Signed by: LUZMA FERNANDEZ @ 03/02/2022 01:07 PM Normal [facility] SCOLIOSIS 2 [facility] 02-24-2022 SCOLIOSIS 2 [facility] Department of Radiology [address] [place] [id number] Patient Name: DIANA CHAMPION : 1955 Sex: F Age: Race: White Pt. Location: Patient Status: D Ordered Date: 02/24/2022 1:25:00 PM Completed Date: 02/24/2022 01:44 PM Requesting Provider: CINDA ANTONIO Attending Provider: Report Copy To: Signs & Symptoms: M43.10 Spondylolisthesis, site unspecified I10 History: Comments: Views (X-RAY, SCOLIOSIS): PA, Lateral evaluate Exam: SCOLIOSIS 2 [facility] Scoliosis. Worsening pain. Frontal and lateral thoracolumbar spine IMPRESSION: 1. Diffuse disc disease and facet arthritis. Right convex mid lumbar curvature measuring 16 degrees. Interbody fusion hardware lower lumbar spine. Electronically signed: Hugo Lynn. Transcribed by: [email or web address], User Resident: Electronically Signed by: HUGO LYNN @ 02/26/2022 11:07 AM Normal [facility] Comment on above: Order Comment: Views (X-RAY, SCOLIOSIS): PA, Lateral evaluate CT LUMBAR SPINE W CONTRASTon 01-24-2022 CT LUMBAR SPINE W CONTRAST [facility] Department of Radiology [address] [place] [address] Patient Name: DIANA CHAMPION : 1955 Sex: F Age: Race: White Pt. Location: Patient Status: D Ordered Date: 01/09/2022 9:00:00 AM Completed Date: 01/24/2022 03:26 PM Requesting Provider: JOO LINN Attending Provider: JOO LINN Report Copy To: UNKNOWN, PHYSICIAN Signs & Symptoms: M54.16 Radiculopathy, lumbar region I10 History: Jessica Comments: , CT MYELOGRAM>PAPER WORK IN CHART [...] L1-2. Electronically signed: Gaurang Lawrence. Transcribed by: [email or web address], User Resident: Electronically Signed by: GAURANG LAWRENCE @ 01/26/2022 08:58 AM Normal [facility] Comment on above: Order Comment: , CT MYELOGRAM>PAPER WORK IN CHART LUMBAR MYELOGRAMon 2 LUMBAR MYELOGRAM [facility] Department of Radiology [address] [place] [id number] Patient Name: DIANA CHAMPION : 1955 Sex: F Age: Race: White Pt. Location: Patient Status: O Ordered Date: 01/09/2022 9:00:00 AM Completed Date: 01/24/2022 02:37 PM Requesting Provider: JOO LINN Attending Provider: JOO LINN Report Copy To: UNKNOWN, PHYSICIAN Signs & Symptoms: M54.16 Radiculopathy, lumbar region I10 History: Glennie Is patient on thinners? 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 Consent was obtained. Timeout: [place] protocol timeout verification performed. PROCEDURE: Estimated blood [...] report. Electronically signed: Greg Marlow. Transcribed by: [email or web address], User Resident: DEBBIE JI Electronically Signed by: GREG MARLOW @ 01/24/2022 04:07 PM I personally read this/these film(s) with this resident Normal [facility] Comment on above: Order Comment: , CT MYELOGRAM> PAPER WORK SCANNED IN CHART , CT MYELOGRAM> PAPER WORK SCANNED IN CHART , , , Ordering Provider - JOO LINN MD , HIP LEFT 1 OR 2 VWS WITH PEL VISon 01-06-2022 HIP LEFT 1 OR 2 VWS WITH PELVIS [facility] Department of Radiology [address] [place] [id number] Patient Name: DIANA CHAMPION : 1955 Sex: F Age: Race: White Pt. Location: Patient Status: D Ordered Date: 12/21/2021 10:45:00 AM Completed Date: 01/06/2022 01:24 PM Requesting Provider: JOO LINN Attending Provider: JOO LINN Report Copy To: Signs & Symptoms: Z96.642 Presence of left artificial hip joint I10 History: Glennie Comments: Evaluate Exam: HIP LEFT 1 OR 2 VWS WITH PELVIS HIP LEFT 1 OR 2 VWS WITH PELVIS HISTORY: Hip replacement, follow-up. COMPARISON: None. IMPRESSION: 1. Redemonstrated left hip prosthesis without visible complication. 2. Advanced right hip arthritis without significant change with advanced joint space narrowing. Unchanged lumbosacral fusion hardware. Electronically signed: Joe Matthew. Transcribed by: [email or web address], User Resident: Electronically Signed by: JOE MATTHEW @ 01/09/2022 04:45 PM Normal [facility] Comment on above: Order Comment: Evalu ate Vital Signs Date Time Vital Sign Value Performing Clinician Facility 08-17-2023 09:20-0400 Body height 165.1 cm [facility] Other [employer] Other 08-17-2023 09:20-0400 Body mass index (BMI) [Ratio] 38.1 kg/m2 [facility] Other [employer] Other 08-17-2023 09:20-0400 Body temperature 98.8 [degF] [facility] Other [employer] Other 08-17-2023 09:20-0400 Body weight 103.87 kg [facility] Joana Other [employer] Other 08-17-2023 09:20-0400 Diastolic blood pressure 85 mm[Hg] [facility] Other [employer] Other 08-17-2023 09:20-0400 Respiratory rate 18 /min [facility] Other [employer] Other 08-17-2023 09:20-0400 SaO2% (BldA) [Mass fraction] 94 % [facility] Other [employer] Other 08-17-2023 09:20-0400 Systolic blood pressure 151 mm[Hg] [facility] Other [employer] Other 03-02-2023 10:00-0400 Body height 165.1 cm [facility] Energy Other 03-02-2023 10:00-0400 Body mass index (BMI) [Ratio] 37.29 kg/m2 Herberth Joana Other [employer] Other 03-02-2023 10:00-0400 Body temperature 98.9 [degF] Herberth Joana Other [employer] Other 03-02-2023 10:00-0400 Body weight 101.65 kg Herberth Joana Other [employer] Other 03-02-2023 10:00-0400 Diastolic blood pressure 76 mm[Hg] Herberth Joana Other [employer] Other 03-02-2023 10:00-0400 Respiratory rate 20 /min Herberth Joana Other [employer] Other 03-02-2023 10:00-0400 SaO2% (BldA) [Mass fraction] 96 % Herberth Joana Other [employer] Other 03-02-2023 10:00-0400 Systolic blood pressure 136 mm[Hg] Herberth Joana Other [employer] Other 12-08-2022 09:30-0500 Diastolic blood pressure 59 mm[Hg] MD Shaikh Ohara Work Phone: [facility] 12-08-2022 09:30-0500 Heart rate 55 /min MD Shaikh Ohara Work Phone: [facility] 12-08-2022 09:30-0500 Respiratory rate 16 /min MD Shaikh Ohara Work Phone: [facility] 12-08-2022 09:30-0500 SaO2% (BldA) [Mass fraction] 96 % MD Shaikh Ohara Work Phone: [facility] 12-08-2022 09:30-0500 Systolic blood pressure 112 mm[Hg] MD Shaikh Ohara Work Phone: [facility] 12-08-2022 06:54-0500 Body height 162.56 cm MD Shaikh Ohara Work Phone: [facility] 12-08-2022 06:54-0500 Body temperature 98.2 [degF] MD Shaikh Ohara Work Phone: [facility] 12-08-2022 06:54-0500 Body weight 104.32 kg MD Shaikh Ohara Work Phone: [facility] 08-09-2022 11:00-0400 Body height 165.1 cm Herberth Joana Other [employer] Other 08-09-2022 11:00-0400 Body mass index (BMI) [Ratio] 37.87 kg/m2 Herberth Joana Other [employer] Other 08-09-2022 11:00-0400 Body temperature 97.2 [degF] Herberth Joana Other [employer] Other 08-09-2022 11:00-0400 Body weight 103.24 kg Herberth Joana Other [employer] Other 08-09-2022 11:00-0400 Diastolic blood pressure 88 mm[Hg] Herberth Joana Other [employer] Other 08-09-2022 11:00-0400 Respiratory rate 20 /min Herberth Joana Other [employer] Other 08-09-2022 11:00-0400 SaO2% (BldA) [Mass fraction] 95 % Herberth Joana Other [employer] Other 08-09-2022 11:00-0400 Systolic blood pressure 133 mm[Hg] Herberth Joana Other [employer] Other 11-17-2021 10:40-0500 Body height 165.1 cm Herberth Joana Other [employer] Other 11-17-2021 10:40-0500 Body mass index (BMI) [Ratio] 37.97 kg/m2 Herberth Joana Other [employer] Other 11-17-2021 10:40-0500 Body temperature 97.8 [degF] Herberth Joana Other [employer] Other 11-17-2021 10:40-0500 Body weight 103.51 kg Herberth Joana Other [employer] Other 11-17-2021 10:40-0500 Diastolic blood pressure 70 mm[Hg] Herberth Joana Other [employer] Other 11-17-2021 10:40-0500 Respiratory rate 18 /min Herberth Joana Other [employer] Other 11-17-2021 10:40-0500 SaO2% (BldA) [Mass fraction] 94 % Herberth Joana Other [employer] Other 11-17-2021 10:40-0500 Systolic blood pressure 130 mm[Hg] Herberth Joana Other [employer] Other 08-30-2021 13:15-0400 Body height 165.1 cm Rena Ginty Other [employer] Other 08-30-2021 13:15-0400 Body mass index (BMI) [Ratio] 36.61 kg/m2 Rena Ginty Other [employer] Other 08-30-2021 13:15-0400 Body temperature 98.7 [degF] Rena Ginty Other [employer] Other 08-30-2021 13:15-0400 Body weight 99.79 kg Rena Ginty Other [employer] Other 08-30-2021 13:15-0400 SaO2% (BldA) [Mass fraction] 90 % Rena Ginty Other [employer] Other Encounters Encounter Date Encounter Type Care Provider Facility Start: 12-05-2023 End: 12-05-2023 ambulatory SAUNDERS FAWWAD Not Available Start: 11-13-2023 End: 11-14-2023 ambulatory Jayshree Vargas MD Facility:[facility] Start: 11-02-2023 End: 11-02-2023 ambulatory SAUNDERS [facility]WW[facility] Not Available Start: 10-09-2023 End: 10-10-2023 ambulatory Jayshree Vargas MD Facility:[facility] Start: 10-04-2023 End: 10-04-2023 ambulatory [facility] Not Available Start: 09-07-2023 End: 09-07-2023 ambulatory Herberth Joana Other [employer] Other Start: 09-07-2023 Telephone encounter Herberth Joana [facility] Start: 08-28-2023 End: 08-28-2023 ambulatory Herberth Joana Other [employer] Other Start: 08-28-2023 Telephone encounter Herberth Joana [facility] Start: 08-21-2023 End: 08-22-2023 ambulatory Jayshree Vargas MD Facility: [facility] Start: 08-17-2023 End: 08-17-2023 ambulatory Herberth Joana Other [employer] Other Start: 08-17-2023 Office outpatient visit 25 minutes Herberth Joana [facility] Start: 05-08-2023 End: 05-08-2023 ambulatory HETAL [facility] Start: 04-04-2023 End: 04-04-2023 ambulatory SHAIKH Dimitry OHARA Facility:[facility] Start: 03-24-2023 End: 03-25-[address] STEPH GRANADOS Facility:[facility] Start: 03-23-2023 ambulatory [facility] Start: 03-02-2023 End: 03-02-2023 ambulatory Herberth Joana Other [employer] Other Start: 03-02-2023 Office outpatient visit 25 minutes Herberth Joana [facility] Start: 02-25-2023 End: 02-26-2023 ambulatory HERBERTH JOANA Facility:[facility] Start: 02-22-2023 End: 02-23-2023 ambulatory BO MCCLAIN . Facility:[facility] Start: 12-15-2022 End: 12-16-[address] JACK HALL . Facility:[facility] Start: 12-08-2022 End: 12-08-2022 ambulatory Shaikh Lev Facility:[facility] Start: 12-08-2022 End: 12-08-2022 Admission to same day surgery center MD Shaikh Ohara Work Phone: [facility] Work Phone: Start: 12-08-2022 End: 12-08-2022 ambulatory MD Shaikh Ohara Work Phone: [facility] Work Phone: Start: 11-11-2022 End: 11-11-[address] JACK HALL . Facility:[facility] Start: 11-09-2022 End: 11-09-2022 ambulatory Gilma Trent Other [employer] Other Start: 11-09-2022 Telephone encounter Gilma Trent [facility] Start: 08-19-2022 End: 08-20-2022 ambulatory HERBERTH JOANA Facility:[facility] Start: 08-09-2022 End: 08-09-2022 ambulatory Herberth Joana Other [employer] Other Start: 08-09-2022 Office outpatient visit 10 minutes Herberth Joana [facility] Start: 08-09-2022 Telephone encounter Herberth Joana [facility] Start: 08-05-2022 Telephone encounter Herberth Joana [facility] Start: 08-05-2022 End: 08-06-2022 ambulatory HERBERTH JOANA [employer] Other Start: 07-08-2022 End: 07-08-2022 ambulatory Gato Domingo Other [employer] Other Start: 07-08-2022 Telephone encounter Gato Cesar ck [facility] Start: 07-05-2022 End: 07-06-2022 ambulatory SHAIKH Dimitry OHARA Facility:[facility] Start: 06-08-2022 End: 06-09-2022 ambulatory SHAIKH Dimitry OHARA Facility:[facility] Start: 06-07-2022 End: 06-07-2022 ambulatory SHAIKH Dimitry OHARA Facility:[facility] Start: 01-24-2022 End: 01-25-2022 ambulatory PHYSICIAN UNKNOWN Facility:[facility] Start: 11-17-2021 End: 11-17-2021 ambulatory Herberth Joana Other [employer] Other Start: 11-17-2021 Office outpatient visit 15 minutes Herberth Joana [facility] Start: 08-30-2021 Office outpatient visit 15 minutes Rena Ginty [facility] Start: 09-11-2020 End: 09-11-2020 Chart abstracting Miguelito Buikenna Work Phone: Hematology/Oncology Start: 09-11-2020 End: 09-11-2020 Patient encounter procedure External Provider [facility] Start: 09-11-2020 Results Only External Provider [facility] Start: 09-30-2019 End: 09-30-2019 Patient encounter procedure [facility] [place] Start: 07-07-2017 End: 07-07-2017 Admission to day surgery [facility] Start: 05-24-2004 Evaluation and management of inpatient [facility] [place] Start: 04-26-2004 Evaluation and management of inpatient [facility] [place] Procedures Date Procedure Procedure Detail Performing Clinician Start: 12-08-2022 Colonoscopy MD Shaikh Ohara Work Phone: Start: 09-11-2020 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 Manufacturing Mechanic al Provider Start: 09-11-2020 EXTERNAL LAB External P rovider Start: 09-11-2020 EXTERNAL PROCEDURE Exte rnal Provider Start: 09-30-2019 Ultrasonography of b ilateral kidneys Steph Collier Plan of Treatment Date Care Activity Detail Author Start: 12-08-2022 [facility] Start: 07-07-2020 Influenza vaccination INFLUENZA (#1) [facility] Start: 2006 SHINGRIX VACCINE (1 of 2) SHINGRIX VACCINE (1 of 2) [facility] Start: 2006 Tuberculosis screening COLORECTAL CANCER SCREENING,SEE MODIFIER [facility] Start: 2001 DIABETES SCREEN DIABETES SCREEN [facility] Start: 2001 LIPID SCREEN LIPID SCREEN [facility] Start: 1996 Mammography MAMMOGRAM [facility] Start: 1986 HPV TESTING HPV TESTING [facility] Start: 1977 PAP TESTING PAP TESTING [facility] Start: 1975 Urine microalbumin profile DTAP,TDAP,TD (1 - Tdap) [facility] Start: 1974 HEPATITIS C SCREENING HEPATITIS C SCREENING [facility] Start: 1974 HIV SCREENING HIV SCREENING [facility] Patient Education Colon Polypect shahram Hemorrhoids (DC) Diverticulosis (DC) [facility] Work Phone: [facility] Immunizations Immunization Date Immunization Notes Care Provider Fa cility 07-18-2018 Depo-Medrol 40 mg Rena Gint y Other [employer] Other 01-31-2018 Depo-Medrol 40 mg Rena Gint y Other [employer] Other 08-09-2017 influenza, seasonal, injectable, preservative free Rena Ginty Other [employer] Other Payers Date Payer Category Payer Unknown 2022 Self-pay [id number] 2021 Medicare [id number] 2020 Medicaid [id number] 2019 Medicaid MEDICAID [facility] MEDICAID [id number] 2019-Present Medicaid [id number] 2016 Medicare MEDICARE MEDICAR E A AND B [id number] 2016-Present [place], [place] Medicare [id number] 1959 Unknown [id number] 1956 Unknown [id number] 2.16.840.1.727038.3.579.2.647 1956 Unknown [id number] 2.16.840.1.193313.3.579.2.593 1956 Unknown [id number] 2.16.840.1.994296.3.579.2.593 1956 Unknown [id number] 2.16.840.1.141645.3.579.2.593 1956 Unknown [id number] 2.16.840.1.873067.3.579.2.593 1956 Unknown [id number] 2.16.840.1.661337.3.579.2.593 1956 Unknown [id number] 2.16.840.1.932615.3.579.2.593 1956 Unknown [id number] 2.16.840.1.068638.3.579.2.593 1956 Unknown [id number] 2.16.840.1.629050.3.579.2.593 1956 Unknown [id number] 2.16.840.1.287578.3.579.2.593 1956 Unknown [id number] 2.16.840.1.396082.3.579.2.593 1956 Unknown [id number] 2.16.840.1.089644.3.579.2.593 1956 Unknown [id number] 2.16.840.1.009758.3.579.2.196 1956 Unknown [id number] 2.16.840.1.590842.3.579.2.196 1956 Unknown [id number] 2.16.840.1.333102.3.579.2.196 1956 Unknown [id number] 2.16.840.1.712777.3.579.2.1259 1956 Unknown [id number] 2.16.840.1.927776.3.579.2.1259 1956 Unknown [id number] 2.16.840.1.450081.3.579.2.1259 Medicare [id number] Unknown HCAP/HFA/FAP Active [id number] Unknown [id number] 2.16.840.1.360475.3.579.2.531 Social History Date Type Detail Facility Tobacco smoking stat us [facility] Unknown if ever smoked [facility] Start: 1955 Sex Assigned At Female F [facility] Start: 09-11-2020 End: 12-08-2022 Tobacco smoking status NHIS Never smoker [facility] Start: 09-11-2020 Tobacco use and exposure Never used [facility] Start: 09-11-2020 Alcohol intake Lifetime non-d my (finding) [facility] Start: 09-11-2020 History SDOH Alcohol Frequency 1 [facility] Sex Assigned At Not on file [facility] Sex Assigned At Sex Assigned At Bir th [employer] Other Goals Date Patient Goal Desired Activity /State Clinical Notes 08-30-2021 to 09-07-2023 Note Date & Type Note Facility 09-07-2023 Evaluation note Encounter Date Diagnosis Assessment Notes Sep, Hypomagnesemia (ICD-10 - E83.42) [employer] Other 10-23-2023 Evaluation note* Encounter Date Diagnosis Assessment Notes Treatment Notes Treatment Clinical Notes Aug, 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 Continue oral Magnesium [employer] Other [id number] Chief Complaint: Patient here for 1 year follow up CAD and hypertension. She was recently discharged from [facility] for Covid-19. She says hydrochlorothiazide was [...] breath since then. She has seen her [employer]er controlled atmospheric furnace. Her chest pain is noncardiac. She has [...] 325 mg by mouth., Disp: , Rfl: iihrwblzdoe-lmhhujzzn-twskpezl 100-62.5-25 mcg blister with device, , Disp: [...] CTAB, no increased eff (more content not included)...[facility]05-19-2023 NotePROCEDURE: XR HIP RT 2 3V W PELVIS HISTORY: Pain in right hip joint , chronic COMPARISON: XR L-spine 02/26/2019, XR left hip with pelvis 03/11/2017 FINDINGS: BONES:Complete loss of the right hip joint space with nbxu-[id number]-licq articulation, subchondral sclerosis and cysts, and large periarticular degenerative osteophytes. No fracture or dislocation. Left hip replacement. Mechanical fusion of L5-S1 and moderate dextroscoliosis of lumbar spine. SOFT TISSUES:No visible soft tissue swelling. EFFUSION:None visible. OTHER: Negative. IMPRESSION: 1. Marked degenerative joint disease of the right hip; progressed since prior study. 2. Stable surgical changes. Electronically authenticated by: STEPH GRANADOS Date: 2023-03-24 12:55[facility]05-18-2023 NoteSubjective 03/23/23 Diana Champion is a [...] LIGATION Past Medical History: Diagnosis Date Cancer ([facility] Hypertension Objective General: Body mass index is [...] from the patient's PCP as well as [employer]razer controlled atmospheric furnace for a right anterior total hip arthroplasty. [...] may be an additional personal documentation from me.[facility]04-27-2023 Evaluation note* Encounter Date Diagnosis [...] PPI induced GI losses. Continue oral Magnesium [employer] Other 02-02-2023 Procedure [facility]01-04-2023 Evaluation note* Encounter Date Diagnosis Assessment Notes Treatment Notes Treatment Clinical Notes Nov, Hypokalemia (ICD-10 - E87.6) Nov, Hypomagnesemia (ICD-10 - E83.42) [employer] Other 10-04-2022 Evaluation note* Encounter Date Diagnosis [...] office does not accept her new insurance. [employer] Other 09-02-2022 Evaluation note* Encounter Date Diagnosis Assessment Notes Treatment Notes Treatment Clinical Notes Jul, History of colon cancer (ICD-10 - Z85.038) [employer] Other 01-12-2022 Evaluation note* Encounter Date Diagnosis [...] potassium wasting. I have prescribed oral potassium. [employer] Other 10-25-2021 Evaluation note* Encounter Date Diagnosis [...] Patient care instructions given in writting by [facility] Care At Home document [employer] Other Evaluation noteNo InformationNort [employer] Other Evaluation note* Diagnosis Onset Date Resolution Status History of colon cancer [facility] Work Phone: Hisjufn general Narrative - Reported* Type Description Date [...] back surgery 2002 Surgical History back Sx 2004 Surgical History [...] IN 08/2019 Hospitalization History HIP REVISION 03/2020 [employer] Other history general Narrative - Reported* Type Description Date [...] back surgery 2002 Surgical History back Sx 2004 Surgical History [...] Hospitalization History COVID X 2 WEEKS 04/2023 [employer] Other Hospital Discharge instructions Additional Instructions DISCHARGE [...] if you have any problems. -Office number [phone] Work Phone: Advance Directives No Advanced Directives [...] or prosecute any alcohol or drug abuse patient.[facility] Hospital[facility] the event this information is protected by the Federal Confidentiality of Alcohol and Drug Abuse Patient Records regulations: The Federal rules restrict any use of the information to criminally investigate or prosecute any alcohol or drug abuse patient.[facility] Hospital[facility] the event this information is protected by the Federal Confidentiality of Alcohol and Drug Abuse Patient Records regulations: The Federal rules restrict any use of the information to criminally investigate or prosecute any alcohol or drug abuse patient.[facility] HospitalIn the event this information is protected by the Federal Confidentiality of Alcohol and Drug Abuse Patient Records regulations: The Federal rules restrict any use of the information to criminally investigate or prosecute any alcohol or drug abuse patient.[facility] INFORMATION SOURCE (unrecogn ized section and content) DATE CREATED AUTHOR 03/03/2022 [facility] DATE CREATED AUTHOR AUTHOR'S KHADIJAH SYKES 04/17/2023 [facility] DATE CREATED AUTHOR AUTHOR'S ORGANIZ ATION 05/08/2023 [facility] DATE CREATED AUTHOR AUTHOR'S ORGANIZ ATION 06/07/2023 [facility] DATE CREATED AUTHOR AUTHOR'S ORGANIZ ATION 11/28/2023 [facility] DATE CREATED AUTHOR AUTHOR'S ORGANIZ ATION 12/06/2023 [facility] EPIC REASON FOR VISIT (unrecogniz ed [...] BE BASED ON THE PRIMARY CLINICAL RECORDS. [facility] [employer] provides no warranty or guarantee of the accuracy or completeness of information in this document.
[2023-12-18 07:15] VITALS: BP 106/58; PULSE 68; RESP 16; TEMP 36.9; O2SAT 95
[2023-12-18 08:11] VITALS: BP 129/76; PULSE 65; RESP 18; O2SAT 94
[2023-12-18] MEDS: BUPIVACAINE HCL 0.25% PF 25 MG/10 ML VIAL INJ (08:12)
[2023-12-18] MEDS: TRIAMCINOLONE ACETONIDE 40 MG/ML VIAL INJ (08:12)
[2023-12-18] MEDS: LIDOCAINE HCL 2% 400 MG/20 ML MDV 15 ML INJ (08:12)
[2023-12-18 08:13] VITALS: BP 149/83; PULSE 62; RESP 18; O2SAT 94
--- NOTE | 2023-12-18 08:26 | P.ON_ITS ---
Date of procedure: 12/18/23 Pre-op diagnosis: Lumbar spondylosis Post-op diagnosis: same as pre-op Procedure: Procedure: Bilateral L3-4, L4-5 radiofrequency ablation Medications: Bupivacaine 0.25% 6cc, lidocaine 2% 5cc, kenalog 80mg The patient was seen and examined in the preoperative holding area.? The site was marked.? Written informed consent was obtained and placed on the chart.? The patient was brought to the medical procedure unit and placed in the prone position.? A timeout was completed verifying correct patient, procedure, positioning, and special requirements.? The skin overlying the target points, the designated medial branch, were prepped and draped in the usual sterile fashion.? The target point was achieved with a 20-gauge 15 cm with a 10 mm curved active tip radiofrequency cannula under direct fluoroscopic visualization.? The needle was inserted at level L4 on the right side. Needle tip position was confirmed with lateral fluoroscopic position.? Motor stimulation was carried out at 2 Hz up to 5 volts with the absence of extremity activity.? This was repeated at level L5, S1 on right side.?? Sensory stimulation was carried out.? Concordant pain was realized at the above- mentioned sites.? Then radiofrequency lesioning was carried out times 90 seconds at 80 degrees times 2 lesions at each level.? The radiofrequency probe was removed prior to cannula removal.? The above-mentioned injectate was placed in 1 mL increments.? The needle was removed. The same procedure, with the same steps, was then completed on the left side at the same levels. Insertion sites were covered.? The patient was taken to the postoperative recovery area and monitored for an appropriate length of time before being found suitable for discharge in the company of a responsible adult. Anesthesia: Local Surgeon: Jayshree Vargas Pathology: none sent Condition: stable Disposition: no change
== END 2023-12-18 08:33 | disposition home or self-care (01) ==
PROVIDERS: PCP Internal Medicine; Visit Provider Anesthesiology
DX: M47.816 Spondylosis without myelopathy or radiculopathy, lumbar region (principal)
CPT/HCPCS: 64635; 64636; J0665; J3301

== ENCOUNTER 2024-01-01 15:11 | Outpatient (OUT) | payer OTHER, SELFPAY ==
[2024-01-01 15:44] LABS: Anion Gap 11.2; BUN Creatinine Ratio 11.5; Calcium 8.4 mg/dL (8.5-10.1); Carbon Dioxide 29.1 mmol/L (21.0-32.0); Chloride 108 mmol/L (98-107); Estimated GFR (African America 58 (>=60); Estimated GFR (Non-African Ame 48 (>=60); Glucose 89 mg/dL (74-106); Potassium 4.3 mmol/L (3.5-5.1); Sodium 144 mmol/L (136-145)
[2024-01-01 15:53] LABS: Basophils Absolute Auto 0.1 10^3/uL (0.0-0.1); Basophils Percent Auto 0.8 % (0.2-2.0); Eosinophils Absolute Auto 0.1 10^3/uL (0.0-0.7); Hematocrit 40.6 % (36.0-48.0); Hemoglobin 12.6 g/dL (12.0-16.0); Immature Granulocytes Abs Auto 0.39 10^3/uL (0.00-0.03); Immature Granulocytes Pct Auto 4.1 % (0.0-0.5); Lymphocytes Percent Auto 20.6 % (20.5-60.0); Mean Corpuscular Hemoglobin 30.1 pg (26.7-34.0); Mean Corpuscular Volume 96.9 fL (81.0-99.0); Mean Platelet Volume 8.7 fL (9.5-13.5); Monocytes Absolute Auto 0.8 10^3/uL (0.3-0.8); Monocytes Percent Auto 8.8 % (1.7-12.0); Neutrophils Absolute Auto 6.2 10^3/uL (1.4-6.5); Neutrophils Percent Auto 64.7 % (43.0-75.0); Platelet Count 270 10^3/uL (150-450); Red Blood Count 4.19 10^6/uL (4.20-5.40); Red Cell Distribution Width 14.3 % (11.0-15.0); White Blood Count 9.6 10^3/uL (4.0-11.0)
== END 2024-01-01 15:12 | disposition home or self-care (01) ==
LOC: LAB 15:13
PROVIDERS: PCP Internal Medicine; Visit Provider Internal Medicine
DX: D72.829 Elevated white blood cell count, unspecified (principal); N17.9 Acute kidney failure, unspecified
CPT/HCPCS: 36415; 80048; 85025

== ENCOUNTER 2024-01-02 19:32 | Outpatient (OUT) | payer OTHER, SELFPAY ==
--- OUTSIDE RECORDS SUMMARY | 2024-01-02 19:36 | XMS_ITS | CCD ---
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 Stock Operator Name Role Phone Steph Collier Attending Provider Unavailable Chantel Rainey Primary Care Provider Unavailabl e JoanaHerberth Attending Provider Unavailable Unavailable Primary Care Provider Unavailabl e UNKNOWN, PHYSICIAN Referring Unavailable JOO LINN Attending Unavailable JOO LINN Admitting Unavailable UNKNOWN, PHYSICIAN Primary Care Unavailable Rena Hurd Unavailable Joana, Herberth Unavailable Gato Domingo Unavailable Steph Collier Attending Provider MD Gato Domingo Attending Provider [phone] MD Nicky Ohara Primary Care Provider Gilma [...] e FAWANASTASIA, SAUNDERS H Primary Care Unavailable [place], DR BRITTANY Elizondo Consulting Unavailable DARWIN, DR [...] FAWWAD, SAUNDERS Attending Unavailable Giedraitis , Andrius Vytautclara Attending Unavailable Giedraitis MD, Andrius Vytautas Attending Unavailable Gilorenzaitis MD, Andrius Vytautas Attending Unavailable Giedraitis MD, Andrius Vytautas Attending Unavailable Unavailable Unavailable Unavailable Allergies Allergy Classification Reported Allergen(s) Allergy Type Date of Onset Reaction(s) Facility (3 sources) fentaNYL; Translations: [fentanyl] Drug Allergy 07-07-[address] [facility] (2 sources) linezolid; Translations: [LINEZOLID] Drug Allergy 03-17-20 20 [facility] (20 sources) Vancomycin; Translations: [VANCOMYCIN] Drug Allergy 03-17-20 20 Unknown [facility] (11 sources) DENIES METAL SENSITITIVITY Propensity to adverse reactions Unknown [employer] Other Medications Current Medications Medication Drug [...] Oral Bedtime July 07, 2017 10:21am famotidine (PEP ID) 20 mg tablet Take 20 mg [...] each nostril Nasally Once a day Active Ivoqkzpenmj-Fihwxeyji-Pf lanter (1 source) Star t: 0212-26 Hrcqsubrmwv-Ximnysbuj-P ilanter (Trelegy Ellipta) 200-62.5-25 mcg blister with [...] 1 puff(s) by inhalation twice daily Ipratropium [place] Active 2 PUFF Inhalation Twice daily July [...] 2017 10:21am take 1 capsule by mo [facility] every twelve hours Omeprazole 20 MG [...] Active Start: 08-05-2022 take 1 tablet by [facility] every twelve hours Potassium Chloride ER [...] Interpretation Reference Range Facility Follow-Upon 05-08-2023 Follow-Up [id number] Nell Champion 1955 F Date Provider Department Center 05/08/2023 SiddharthJossHETAL SCALES Blair Baker Family History Problem Relation Age of Onset Heart failure Mother Heart disease Father Family Status - Relation Status Age at Mother Father Level of Service:46116 [place] OFFICE/OUTPATIENT ESTABLISHED LOW MDM 20-29 MIN [facility] 05-03-2023 36 PATIENT CALLED TO CANCEL SURGERY FOR July D/T HER LUNG DISEASE. WILL CALL TO RESCHEDULE WHEN FULLY HEALED FROM LUNGS AND CLEARED//[facility] 04-19-2023 36 FYI CALLED PATIENT T O F/U ON MEDICAL AND PULMONARY CLEARANCES FOR R ELZA ON 05/19 AND PRE-OP RIYA'T 04/27 WITH US AND PATIENT IS CURRENTLY INPATIENT SINCE LAST WEEK D/T COVID AND PULMONARY ISSUES, SHE WILL CALL US ON 04/25 WITH PROGRESS, PLEASE ADVISE IF WE SHOULD CANCEL SURGERY FOR NOW..THANKS//[facility] SYMPTOMATIC COVID-19 ANTIGEN on 04-04-2023 EUA Statement SEE BELOW Normal [facility] Comment on above: Result Comment: [...] sooner. Performed By: #### C VDAGS #### [facility] [address] [place] [address] Dr. Shayne Roldan SARS-CoV-2 (COVID-19) RNA KAYLEE+probe Ql (Unsp spec) Positive Abnormal NEGATIVE [facility] Comment on above: Performed By: #### C VDAGS #### [facility] [address] [address] [address] Shayne Roldan XR LSPINE 2_3 VIEWSon [...] STEPH GRANADOS Date: 2023-03-24 12:52 Normal The [facility] PTH INTACTon 02-27-2023 PTH, Intact 87 pg/mL Critically high 15-65 The [facility] Comment on above: Performed By: #### P THINT #### [facility] [address] [place] [address] Dr. Shayne Roldan HEMOGRAM AND PLATELon 2022 Hematocrit (Bld) [Volume fraction] 44.4 % Normal 36.0-48.0 [facility] Comment on above: Performed By: #### H H #### [facility] [address] [place] [address] Dr. Shayne Roldan Hemoglobin (Bld) [Mass/Vol] 14.5 g/dL Normal 12.0-16.0 [facility] Comment on above: Performed By: #### H H #### [facility] [address] [place] [address] Dr. Shayne Roldan MCH (RBC) [Entitic mass] 30.3 pg Normal 26.7-34.0 [facility] Comment on above: Performed By: #### H H #### [facility] [address] [place] [address] Dr. Shayne Roldan MCHC (RBC) [Mass/Vol] 32.7 g/dL Normal 29.9-35.2 [facility] Comment on above: Performed By: #### H H #### [facility] [address] [place] [address] Dr. Shayne Roldan MCV (RBC) [Entitic vol] 92.9 fL Normal 81.0-99.0 [facility] Comment on above: Performed By: #### H H #### [facility] [address] [place] [address] Dr. Shayne Roldan PLT 367 103/ul Normal 150-450 [facility] Comment on above: Performed By: #### H H #### [facility] [address] [place] [address] Dr. Shayne Roldan RBC 4.78 106/ul Normal 4.20-5.40 [facility] Comment on above: Performed By: #### H H #### [facility] [address] [place] [address] Dr. Shayne Roldan WBC 9.9 103/ul Normal 4.0-11.0 [facility] Comment on above: Performed By: #### H H #### [facility] [address] [place] [address] Dr. Shayne Roldan MAGNESIUMon 02-25-2023 Magnesium [Mass/Vol] 1.6 mg/dL Critically low 1.8-2.4 [facility] Comment on above: Performed By: #### M G, RENAL, URIC #### [facility] [address] [place] [address] Dr. Shayne Roldan RENAL FUNCTION PANELon 02-25 Albumin [Mass/Vol] 3.4 g/dL Normal 3.4-5.0 [facility] Comment on above: Performed By: #### M G, RENAL, URIC #### [facility] [address] [place] [address] Dr. Shayne Roldan Calcium [Mass/Vol] 8.7 mg/dL Normal 8.5-10.1 [facility] Comment on above: Performed By: #### M G, RENAL, URIC #### [facility] [address] [address] [address] Shayne Roldan Chloride [Moles/Vol] 104 mmol/L Normal 98-107 [facility] Comment on above: Performed By: #### M G, RENAL, URIC #### [facility] [address] [address] [address] Shayne Roldan CO2 [Moles/Vol] 25.9 mmol/L Normal 21.0-32.0 [facility] Comment on above: Performed By: #### M G, RENAL, URIC #### [facility] [address] [address] [address] Shayne Roldan Creatinine [Mass/Vol] 1.19 mg/dL Critically high 0.55-1.02 [facility] Comment on above: Performed By: #### M G, RENAL, URIC #### [facility] [address] [place] [address] Dr. Shayne Roldan EGFR-AF COSTA RICAN 55 mL/min/1.73m2 Critically low >=60 The [facility] Comment on above: Performed By: #### M G, RENAL, URIC #### [facility] [address] [address] [address] Shayne Roldan EGFR-NON AF COSTA RICAN 45 mL/min/1.73m2 Critically low >=60 The [facility] Comment on above: Performed By: #### M G, RENAL, URIC #### [facility] [address] [address] [address] Shayne Roldan Glucose [Mass/Vol] 193 mg/dL Critically high 74-106 [facility] Comment on above: Performed By: #### M G, RENAL, URIC #### [facility] [address] [address] [address] Shayne Roldan Phosphate [Mass/Vol] 3.2 mg/dL Normal 2.6-4.7 [facility] Comment on above: Performed By: #### M G, RENAL, URIC #### [facility] [address] [address] [address] Shayne Roldan Potassium [Moles/Vol] 3.9 mmol/L Normal 3.5-5.1 [facility] Comment on above: Performed By: #### M G, RENAL, URIC #### [facility] [address] [address] [address] Shayne Roldan Sodium [Moles/Vol] 140 mmol/L Normal 136-145 [facility] Comment on above: Performed By: #### M G, RENAL, URIC #### [facility] [address] [address] [address] Shayne Roldan Urea nitrogen [Mass/Vol] 17.0 mg/dL Normal 7.0-18.0 [facility] Comment on above: Performed By: #### M G, RENAL, URIC #### [facility] [address] [place] [address] Dr. Shayne Roldan UA RANDOM W/MICROSCOPICon BACTERIA TRACE Abnormal NONE SEEN [facility] Comment on above: Performed By: #### M G, RENAL, URIC #### [facility] [address] [place] [address] Dr. Shayne Roldan Bilirubin Ql (U) Negative Normal NEGATIVE [facility] Comment on above: Performed By: #### M G, RENAL, URIC #### [facility] [address] [place] [address] Dr. Shayne Roldan CAST NONE SEEN Normal NONE SEEN [facility] Comment on above: Performed By: #### M G, RENAL, URIC #### [facility] [address] [place] [address] Dr. Shayne Roldan Clarity (U) CLEAR Normal CLEAR [facility] Comment on above: Performed By: #### M G, RENAL, URIC #### [facility] [address] [place] [address] Dr. Shayne Roldan Color (U) LT. YELLOW Normal YELLOW [facility] Comment on above: Performed By: #### M G, RENAL, URIC #### [facility] [address] [place] [address] Dr. Shayne Roldan Crystals LM Nom (Urine sed) NONE SEEN Normal NONE SEEN [facility] Comment on above: Performed By: #### M G, RENAL, URIC #### [facility] [address] [address] [address] Shayne Roldan Epithelial cells LM Ql (Urine sed) RARE Normal NONE SEEN /RARE The [facility] Comment on above: Performed By: #### M G, RENAL, URIC #### [facility] [address] [address] [address] Shayne Roldan Glucose Ql (U) Negative Normal NEGATIVE The [facility] [place] Comment on above: Performed By: #### M G, RENAL, URIC #### [facility] [address] [address] [address] Shayne Roldan Hemoglobin Ql (U) Negative Normal NEGATIVE [facility] Comment on above: Performed By: #### M G, RENAL, URIC #### [facility] [address] [address] [address] Shayne Roldan Ketones Ql (U) Negative Normal NEGATIVE The [facility] [place] Comment on above: Performed By: #### M G, RENAL, URIC #### [facility] [address] [address] [address] Shayne Roldan LEUKOCYTES Negative Normal NEGATIVE [facility] Comment on above: Performed By: #### M G, RENAL, URIC #### [facility] [address] [address] [address] Shayne Roldan MUCOUS NONE SEEN Normal NONE SEEN [facility] Comment on above: Performed By: #### M G, RENAL, URIC #### [facility] [address] [address] [address] Shayne Roldan Nitrite Ql (U) Negative Normal NEGATIVE The [facility] [place] Comment on above: Performed By: #### M G, RENAL, URIC #### [facility] [address] [address] [address] Shayne Roldan pH (U) 5.0 [pH] Normal 5-9 [facility] Comment on above: Performed By: #### M G, RENAL, URIC #### [facility] [address] [address] [address] Shayne Roldan RBC 0-2 Normal 0-2 [facility] Comment on above: Performed By: #### M G, RENAL, URIC #### [facility] [address] [address] [address] Shayne Roldan SPEC GRAVITY 1.025 Normal 1.005-<=1.025 The [facility] Comment on above: Performed By: #### M G, RENAL, URIC #### [facility] [address] [address] [address] Shayne Roldan UA PROTEIN Negative Normal NEGATIVE/ TRACE [facility] Comment on above: Performed By: #### M G, RENAL, URIC #### [facility] [address] [address] [address] Shayne Roldan Urobilinogen Qn (U) 0.2 {Rogelio'U}/dL Normal 0.2 - 1. 0 [facility] Comment on above: Performed By: #### M G, RENAL, URIC #### [facility] [address] [place] [address] Dr. Shayne Roldan WBC 0-2 Abnormal NONE SEEN [facility] Comment on above: Performed By: #### M G, RENAL, URIC #### [facility] [address] [address] [address] Shayne Roldan URIC ACID SERUMon 02-25-2023 Urate [Mass/Vol] 6.1 mg/dL Critically high 2.6-6.0 [facility] Comment on above: Performed By: #### M G, RENAL, URIC #### [facility] [address] [place] [address] Dr. Shayne Roldan URINE T PROTEIN CREAT RATIOo n 02-25-2023 Protein (U) [Mass/Vol] 13.0 mg/dL Critically high <=12.0 [facility] Comment on above: Performed By: #### M G, RENAL, URIC #### [facility] [address] [place] [address] Dr. Shayne Roldan UR PROT CREAT RAT 0.16 Normal [facility] Comment on above: Performed By: #### M G, RENAL, URIC #### [facility] [address] [address] [address] Shayne Roldan URINE CREAT 83.60 mg/dL Normal 20.00-300.00 [facility] Comment on above: Performed By: #### M G, RENAL, URIC #### [facility] [address] [address] [address] Shayne Roldan VITAMIN D 25 OHon 02-25-2023 VIT D 25-OH 41.6 ng/mL Normal [facility] Comment on above: Performed By: #### M G, RENAL, URIC #### [facility] [id number] Shayne Roldan VIT D RANGES SEE BELOW Normal [facility] Comment on above: Result Comment: <20 ng/mL Vit D deficient 20 - <30 ng/mL Vit D insufficient 30 - 100 ng/mL Vit D sufficient >100 ng/mL Potential Toxicity Performed By: #### M G, RENAL, URIC #### [facility] [address] [place], [place] [address] Dr. Shayne Roldan XR CHEST 2 Von [...] BRITTANY GALDAMEZ Date: 2023-02-22 16:15 Normal The [facility] MAMM SCREEN 3D PRATEEK CADon 12-15-2022 MG MAMM SCREEN 3D PRATEEK CAD Patient: DIANA CHAMPION Exam Date: 12/15/2022 : 1955 Gender:F Ordering : DR JACK HALL . Admission #: [id number] Family : Order #: [id number] CLICK HERE TO VIEW EXAM RADIOLOGY REPORT PROCEDURE: MAMMOGRAM SCREENING 3D BILATERAL CAD COMPARISON: MG MAMM SCREEN 3D PRATEEK CAD, 11/26/2021. INDICATIONS: Calculator Name NCI Breast Cancer Risk Assessment Tool 5 Year Breast Cancer Risk 1.20% Lifetime Breast Cancer Risk 4.40% Personal Breast Cancer No Personal Ovarian Cancer No Treatments Excision, radiation, chemotherapy Family Cancers None LOCATION: The [facility] BREAST COMPOSITION: Almost entirely fatty. FINDINGS: [...] Walters MD on 12/15/2022 at 10:51 Normal [facility] XR DEXA BONE DENSITYon 12-15 XR DEXA [...] by: STEPH GRANADOS Date: 2022-12-15 09:50 Normal [facility] Fran 12-08-2022 L - -------- Specimen: [id number] Received: 12/08/22 Status: CELIA Eliza Num: [id number] Spec Type: Surgical Subm Dr: Gato Domingo MD Tissues: A Colon Biopsy (DESC COL POLYP) Procedures: HE/2, Gross/Micro L4 -------- Age/ Patient Sex Location Account Attending Physician -------- Diana Champion 67/F [id number] Gato Domingo MD -------- SPEC NUM: [id number] RECD: 12/08/221006 STATUS: CELIA KAY NUM: [id number] KENDRA: 12/08/[address] [facility] [address]: Gato Domingo MD ENTERED: 12/08/22 [facility] DR: KHRIS TYPE: Surgical DEPT: S ENTERED BY: [id number] RECV BY: [id number] ORDERED: HE/2, Gross/Micro L4 ORDERED: HE/2, Gross/Micro [...] support the above pathologic diagnosis. CPT Codes 71678 -------- -------- Specimen: [id number] Received: 12/08/22 Status: CELIA Kay Num: [id number] Spec Type: Surgical Subm Dr: Gato Domingo MD Tissues: A Colon Biopsy (DESC COL POLYP) Procedures: HE/Evonne, Gross/Micro L4 -------- Patient: Diana Champion [id number] (Continued) -------- Signed (signature on file) Eunice Rosa MD 12/09/22 1053 [facility] PAP ACOG PANEL 2: 30 to 65on 11-16-2022 . . Normal [facility] Comment on above: Performed By: #### [id number] #### [facility] [address] [address] [address] Shayne Roldan Age Gdln ACOG Testing Comment [facility] Comment on above: Result Comment: <21 or >65 or no age provided Performed By: #### [id number] #### [facility] [address] [address] [address] Shayne Roldan DIAGNOSIS: Comment [facility] Comment on above: Result Comment: NEGA TIVE FOR INTRAEPITHELIAL LESION OR MALIGNANCY. Performed By: #### [id number] #### [facility] [address] [place] [address] Dr. Shayne Roldan Methodology: Comment [facility] Comment on above: Result Comment: This liquid based ThinPrep(R) pap test was screened with the use of an image guided system. Performed By: #### [id number] #### [facility] [address] [place] [address] Dr. Shayne Roldan Note: Comment [facility] Comment on above: Result Comment: The Pap smear is a screening test designed to aid in the detection of premalignant and malignant conditions of the uterine cervix. It is not a diagnostic procedure and should not be used as the sole means of detecting cervical cancer. Both false-positive and false-negative reports do occur. . Performed By: #### [id number] #### [facility] [address] [address] [address] Shayne Roldan Performed by: Comment [facility] Comment on above: Result Comment: Onur Aguilar Head Automatic Sawyer (ASCP) Performed By: #### [id number] #### [facility] [address] [place] [address] Dr. Shayne Roldan Specimen adequacy: Comment [facility] Comment on above: Result Comment: Sati sfactory for evaluation. Endocervical and/or squamous metaplastic cells (endocervical component) are present. Performed By: #### [id number] #### [facility] [address] [address] [address] Shayne Roldan RENAL FUNCTION PANELon 08-19 Albumin [Mass/Vol] 3.4 g/dL Normal 3.4-5.0 [facility] Comment on above: Performed By: #### M G, RENAL, URIC #### [facility] [address] [place] [address] Dr. Shayne Roldan Calcium [Mass/Vol] 8.4 mg/dL Critically low 8.5-10.1 Th [facility] Comment on above: Performed By: #### M G, RENAL, URIC #### [facility] [address] [place] [address] Dr. Shayne Roldan Chloride [Moles/Vol] 103 mmol/L Normal 98-107 [facility] Comment on above: Performed By: #### M G, RENAL, URIC #### [facility] [address] [place] [address] Dr. Shayne Roldan CO2 [Moles/Vol] 27.8 mmol/L Normal 21.0-32.0 [facility] Comment on above: Performed By: #### M G, RENAL, URIC #### [facility] [address] [place] [address] Dr. Shayne Roldan Creatinine [Mass/Vol] 1.02 mg/dL Normal 0.55-1.02 [facility] Comment on above: Performed By: #### M G, RENAL, URIC #### [facility] [address] [place] [address] Dr. Shayne Roldan EGFR-AF COSTA RICAN >60 Normal >=60 [facility] Comment on above: Performed By: #### M G, RENAL, URIC #### [facility] [address] [place] [address] Dr. Shayne Roldan EGFR-NON AF COSTA RICAN 54 mL/min/1.73m2 Critically low >=60 [facility] Comment on above: Performed By: #### M G, RENAL, URIC #### [facility] [address] [place] [address] Dr. Shayne Roldan Glucose [Mass/Vol] 110 mg/dL Critically high 74-106 [facility] Comment on above: Performed By: #### M G, RENAL, URIC #### [facility] [address] [place] [address] Dr. Shayne Roldan Phosphate [Mass/Vol] 2.3 mg/dL Critically low 2.6-4.7 [facility] Comment on above: Performed By: #### M G, RENAL, URIC #### [facility] [address] [place] [address] Dr. Shayne Roldan Potassium [Moles/Vol] 3.2 mmol/L Critically low 3.5-5.1 [facility] Comment on above: Performed By: #### M Poncho, RENAL, URIC #### [facility] [address] [place] [address] Dr. Shayne Roldan Sodium [Moles/Vol] 138 mmol/L Normal 136-145 [facility] Comment on above: Performed By: #### M G, RENAL, URIC #### [facility] [address] [place] [address] Dr. Shayne Roldan Urea nitrogen [Mass/Vol] 14.0 mg/dL Normal 7.0-18.0 [facility] Comment on above: Performed By: #### M G, RENAL, URIC #### [facility] [address] [place] [address] Dr. Shayne Roldan PTH INTACTon 08-06-2022 PTH, Intact 40 pg/mL Normal 15-65 [facility] Comment on above: Performed By: #### M G, RENAL, URIC #### [facility] [address] [place] [address] Dr. Shayne Roldan HEMOGRAM AND PLATELon 2021 Hematocrit (Bld) [Volume fraction] 39.8 % Normal 36.0-48.0 [facility] Comment on above: Performed By: #### M G, RENAL, URIC #### [facility] [address] [place] [address] Dr. Shayne Roldan Hemoglobin (Bld) [Mass/Vol] 13.4 g/dL Normal 12.0-16.0 [facility] Comment on above: Performed By: #### M G, RENAL, URIC #### [facility] [address] [place] [address] Dr. Shayne Roldan MCH (RBC) [Entitic mass] 30.5 pg Normal 26.7-34.0 [facility] Comment on above: Performed By: #### M G, RENAL, URIC #### [facility] [address] [place] [address] Dr. Shayne Roldan MCHC (RBC) [Mass/Vol] 33.7 g/dL Normal 29.9-35.2 [facility] Comment on above: Performed By: #### M G, RENAL, URIC #### [facility] [address] [place] [address] Dr. Shayne Roldan MCV (RBC) [Entitic vol] 90.5 fL Normal 81.0-99.0 [facility] Comment on above: Performed By: #### M G, RENAL, URIC #### [facility] [address] [place] [address] Dr. Shayne Roldan PLT 299 103/ul Normal 150-450 [facility] Comment on above: Performed By: #### M G, RENAL, URIC #### [facility] [address] [place] [address] Dr. Shayne Roldan RBC 4.40 106/ul Normal 4.20-5.40 [facility] Comment on above: Performed By: #### M G, RENAL, URIC #### [facility] [address] [place] [address] Dr. hSayne Roldan WBC 8.8 103/ul Normal 4.0-11.0 [facility] Comment on above: Performed By: #### M G, RENAL, URIC #### [facility] [address] [place] [address] Dr. Shayne Roldan MAGNESIUMon 08-05-2022 Magnesium [Mass/Vol] 1.5 mg/dL Critically low 1.8-2.4 The [facility] Comment on above: Performed By: #### M G, RENAL, URIC #### [facility] [address] [address] [address] Shayne Roldan RENAL FUNCTION PANELon 08-05 Albumin [Mass/Vol] 3.5 g/dL Normal 3.4-5.0 [facility] Comment on above: Performed By: #### M G, RENAL, URIC #### [facility] [address] [address] [address] Shayne Roldan Calcium [Mass/Vol] 8.4 mg/dL Critically low 8.5-10.1 Th [facility] Comment on above: Performed By: #### M G, RENAL, URIC #### [facility] [address] [address] [address] Shayne Roldan Chloride [Moles/Vol] 101 mmol/L Normal 98-107 [facility] Comment on above: Performed By: #### M G, RENAL, URIC #### [facility] [address] [address] [address] Shayne Roldan CO2 [Moles/Vol] 29.5 mmol/L Normal 21.0-32.0 [facility] Comment on above: Performed By: #### M G, RENAL, URIC #### [facility] [address] [address] [address] Shayne Roldan Creatinine [Mass/Vol] 1.04 mg/dL Critically high 0.55-1.02 [facility] Comment on above: Performed By: #### M G, RENAL, URIC #### [facility] [address] [address] [address] Shayne Roldan EGFR-AF COSTA RICAN >60 Normal >=60 [facility] Comment on above: Performed By: #### M G, RENAL, URIC #### [facility] [address] [address] [address] Shayne Roldan EGFR-NON AF CO[place] RICAN 53 mL/min/1.73m2 Critically low >=60 [facility] Comment on above: Performed By: #### M G, RENAL, URIC #### [facility] [address] [address] [address] Shayne Roldan Glucose [Mass/Vol] 92 mg/dL Normal 74-106 [facility] Comment on above: Performed By: #### M G, RENAL, URIC #### [facility] [address] [address] [address] Shayne Roldan Phosphate [Mass/Vol] 2.4 mg/dL Critically low 2.6-4.7 [facility] Comment on above: Performed By: #### M G, RENAL, URIC #### [facility] [address] [place] [address] Dr. Shayne Roldan Potassium [Moles/Vol] 2.8 mmol/L Critically low 3.5-5.1 [facility] Comment on above: Performed By: #### M G, RENAL, URIC #### [facility] [address] [place] [address] Dr. Shayne Roldan Sodium [Moles/Vol] 137 mmol/L Normal 136-145 [facility] Comment on above: Performed By: #### M G, RENAL, URIC #### [facility] [address] [place] [address] Dr. Shayne Roldan Urea nitrogen [Mass/Vol] 10.0 mg/dL Normal 7.0-18.0 [facility] Comment on above: Performed By: #### M G, RENAL, URIC #### [facility] [address] [place] [address] Dr. Shayne Roldan UA RANDOM W/MICROSCOPICon BACTERIA SMALL Abnormal NONE SEEN The [facility] Comment on above: Performed By: #### U AMIC #### [facility] [address] [place] [address] Dr. Shayne Roldan Bilirubin Ql (U) Negative Normal NEGATIVE The [facility] Comment on above: Performed By: #### U AMIC #### [facility] [address] [place] [address] Dr. Shayne Roldan CAST NONE SEEN Normal NONE SEEN The [facility] Comment on above: Performed By: #### U AMIC #### [facility] [address] [place] [address] Dr. Shayne Roldan Clarity (U) CLEAR Normal CLEAR The [facility] Comment on above: Performed By: #### U AMIC #### [facility] [address] [address] [address] Shayne Roldan Color (U) LT. YELLOW Normal YELLOW The [facility] Comment on above: Performed By: #### U AMIC #### [facility] [address] [address] [address] Shayne Roldan Crystals LM Nom (Urine sed) NONE SEEN Normal NONE SEEN [facility] Comment on above: Performed By: #### U AMIC #### [facility] [address] [address] [address] Shayne Roldan Epithelial cells LM Ql (Urine sed) FEW Abnormal NONE SEEN /RARE The [facility] Comment on above: Performed By: #### U AMIC #### [facility] [address] [address] [address] Shayne Roldan Glucose Ql (U) Negative Normal NEGATIVE The [facility] [place] Comment on above: Performed By: #### U AMIC #### [facility] [address] [address] [address] Shayne Roldan Hemoglobin Ql (U) Negative Normal NEGATIVE The [facility] Comment on above: Performed By: #### U AMIC #### [facility] [address] [address] [address] Shayne Roldan Ketones Ql (U) Negative Normal NEGATIVE The [facility] [place] Comment on above: Performed By: #### U AMIC #### [facility] [address] [address] [address] Shayne Roldan LEUKOCYTES TRACE Abnormal NEGATIVE The [facility] Comment on above: Performed By: #### U AMIC #### [facility] [address] [address] [address] Shayne Roldan MUCOUS NONE SEEN Normal NONE SEEN [facility] Comment on above: Performed By: #### U AMIC #### [facility] [address] [address] [address] Shayne Roldan Nitrite Ql (U) Negative Normal NEGATIVE The [facility] [place] Comment on above: Performed By: #### U AMIC #### [facility] [address] [address] [address] Shayne Roldan pH (U) 6.0 [pH] Normal 5-9 The [facility] Comment on above: Performed By: #### U AMIC #### [facility] [address] [place] [address] Dr. Shayne Roldan RBC NONE SEEN Abnormal 0-2 The [facility] Comment on above: Performed By: #### U AMIC #### [facility] [address] [place] [address] Dr. Shayne Roldan SPEC GRAVITY <=1.005 Abnormal 1.005-<=1.025 [facility] Comment on above: Performed By: #### U AMIC #### [facility] [address] [place] [address] Dr. Shayne Roldan UA PROTEIN Negative Normal NEGATIVE/ TRACE The [facility] Comment on above: Performed By: #### U AMIC #### [facility] [address] [place] [address] Dr. Shayne Roldan Urobilinogen Qn (U) 0.2 {Rogelio'U}/dL Normal 0.2 - 1. 0 [facility] Comment on above: Performed By: #### U AMIC #### [facility] [address] [place] [address] Dr. Shayne Roldan WBC 5-10 Abnormal NONE SEEN The [facility] Comment on above: Performed By: #### U AMIC #### [facility] [address] [place] [address] Dr. Shayne Roldan URIC ACID SERUMon 08-05-2022 Urate [Mass/Vol] 6.5 mg/dL Critically high 2.6-6.0 [facility] Comment on above: Performed By: #### M G, RENAL, URIC #### [facility] [address] [place] [address] Dr. Shayne Roldan URINE T PROTEIN CREAT RATIOo n 08-05-2022 Protein (U) [Mass/Vol] 4.8 mg/dL Normal <=12.0 The [facility] Comment on above: Performed By: #### U RTPCR #### [facility] [address] [place] [address] Dr. Shayne Roldan UR PROT CREAT RAT 0.09 Normal [facility] Comment on above: Performed By: #### U RTPCR #### [facility] [address] [place] [address] Dr. Shayne Roldan URINE CREAT 52.65 mg/dL Normal 20.00-300.00 [facility] Comment on above: Performed By: #### U RTPCR #### [facility] [address] [place] [address] Dr. Shayne Roldan VITAMIN D 25 OHon 08-05-2022 VIT D 25-OH 38.9 ng/mL Normal [facility] Comment on above: Performed By: #### M G, RENAL, URIC #### [facility] [address] [place] [address] Dr. Shayne Roldan VIT D RANGES SEE BELOW Normal [facility] Comment on above: Result Comment: <20 ng/mL Vit D deficient 20 - <30 ng/mL Vit D insufficient 30 - 100 ng/mL Vit D sufficient >100 ng/mL Potential Toxicity Performed By: #### M G, RENAL, URIC #### [facility] [address] [place] [address] Dr. Shayne Roldan IMMUNOGLOBULINS IGA/IGM/IGG/ IGE QUANTITAon 07-12-2022 Immunoglobulin A, Qn, Serum 295 mg/dL Normal 87-352 [facility] Comment on above: Result Comment: Perf ormed at: CB Performed By: #### M G, RENAL, URIC #### [facility] [address] [place] [address] Dr. Shayne Roldan Immunoglobulin E, Total 32 IU/mL Normal 6-495 [facility] Comment on above: Result Comment: Perf ormed at: BN Performed By: #### M G, RENAL, URIC #### [facility] [address] [place] [address] Dr. Shayne Roldan Immunoglobulin G, Qn, Serum 729 mg/dL Normal 586-1602 [facility] Comment on above: Result Comment: Perf ormed at: CB Performed By: #### M G, RENAL, URIC #### [facility] [address] [place] [address] Dr. Shayne Roldan Immunoglobulin M, Qn, Serum 75 mg/dL Normal 26-217 [facility] Comment on above: Result Comment: Perf ormed at: CB Performed By: #### M G, RENAL, URIC #### [facility] [address] [place] [address] Dr. Shayne Roldan Abstracton 07-08-2022 Abstract [id number] Nell Champion Meng 1955 F Date Provider Department Center 07/08/2022 JOHANNA MEDINA [facility] Family History Problem Relation Age of Onset Heart failure Mother Heart disease Father Family Status - Relation Status Age at Mother Father Normal [facility] CBC AUTO DIFFon 07-05-2022 BASO # 0.1 103/ul Normal 0.0-0.1 [facility] Comment on above: Performed By: #### M G, RENAL, URIC #### [facility] [address] [place] [address] Dr. Shayne Roldan Basophils/100 WBC (Bld) 0.7 % Normal 0.2-2.0 [facility] Comment on above: Performed By: #### M G, RENAL, URIC #### [facility] [address] [place] [address] Dr. Shayne Roldan EO # 0.4 103/ul Normal 0.0-0.7 [facility] Comment on above: Performed By: #### M G, RENAL, URIC #### [facility] [address] [place] [address] Dr. Shayne Roldan Eosinophils/100 WBC (Bld) 4.4 % Normal 0.9-7.0 [facility] Comment on above: Performed By: #### M G, RENAL, URIC #### [facility] [address] [place] [address] Dr. Shayne Roldan Erythrocyte distribution width (RBC) [Ratio] 12.6 % Normal 11.0-15.0 [facility] Comment on above: Performed By: #### M G, RENAL, URIC #### [facility] [address] [place] [address] Dr. Shayne Roldan Hematocrit (Bld) [Volume fraction] 40.2 % Normal 36.0-48.0 [facility] Comment on above: Performed By: #### M G, RENAL, URIC #### [facility] [address] [address] [address] Shayne Roldan Hemoglobin (Bld) [Mass/Vol] 13.6 g/dL Normal 12.0-16.0 [facility] Comment on above: Performed By: #### M G, RENAL, URIC #### [facility] [address] [place] [address] Dr. Shayne Roldan IG # 0.07 10e3/ul Critically high 0.00-0.03 [facility] Comment on above: Performed By: #### M G, RENAL, URIC #### [facility] [address] [place] [address] Dr. Shayne Roldan IG % 0.8 % Critically high 0.0-0.5 The [facility] Comment on above: Performed By: #### M G, RENAL, URIC #### [facility] [address] [place] [address] Dr. Shayne Roldan LYMPH # 2.3 103/ul Normal 1.2-3.8 [facility] Comment on above: Performed By: #### M G, RENAL, URIC #### [facility] [address] [place] [address] Dr. Shayne Roldan Lymphocytes/100 WBC (Bld) 24.7 % Normal 20.5-60.0 [facility] Comment on above: Performed By: #### M G, RENAL, URIC #### [facility] [address] [place] [address] Dr. Shayne Roldan MANUAL DIFF REQ NO Normal [facility] Comment on above: Performed By: #### M G, RENAL, URIC #### [facility] [address] [place] [address] Dr. Shayne Roldan MCH (RBC) [Entitic mass] 30.7 pg Normal 26.7-34.0 [facility] Comment on above: Performed By: #### M G, RENAL, URIC #### [facility] [address] [address] [address] Shayne Roldan MCHC (RBC) [Mass/Vol] 33.8 g/dL Normal 29.9-35.2 [facility] Comment on above: Performed By: #### M G, RENAL, URIC #### [facility] [address] [address] [address] Shayne Roldan MCV (RBC) [Entitic vol] 90.7 fL Normal 81.0-99.0 [facility] Comment on above: Performed By: #### M G, RENAL, URIC #### [facility] [address] [address] [address] Shayne Roldan MONO # 0.7 103/ul Normal 0.3-0.8 [facility] Comment on above: Performed By: #### M G, RENAL, URIC #### [facility] [address] [place] [address] Dr. Shayne Roldan Monocytes/100 WBC (Bld) 7.7 % Normal 1.7-12.0 [facility] Comment on above: Performed By: #### M G, RENAL, URIC #### [facility] [address] [address] [address] Shayne Roldan NEUT # 5.7 103/ul Normal 1.4-6.5 [facility] Comment on above: Performed By: #### M G, RENAL, URIC #### [facility] [address] [address] [address] Shayne Roldan Neutrophils/100 WBC (Bld) 61.7 % Normal 43.0-75.0 [facility] Comment on above: Performed By: #### M G, RENAL, URIC #### [facility] [address] [address] [address] Shayne Roldan Platelet mean volume (Bld) [Entitic vol] 8.8 fL Critically low 9.5-13.5 [facility] Comment on above: Performed By: #### M G, RENAL, URIC #### [facility] [address] [address] [address] Shayne Roldan PLT 279 103/ul Normal 150-450 [facility] Comment on above: Performed By: #### M G, RENAL, URIC #### [facility] [address] [place], [place] [address] Dr. Shayne Roldan RBC 4.43 106/ul Normal 4.20-5.40 [facility] Comment on above: Performed By: #### M G, RENAL, URIC #### [facility] [address] [place], [place] [address] Dr. Shayne Roldan WBC 9.1 103/ul Normal 4.0-11.0 [facility] Comment on above: Performed By: #### M G, RENAL, URIC #### [facility] [address] [address] [address] Shayne Roldan Covid-19 PCR ([facility]on SARS-CoV-2 (COVID-19) RNA KAYLEE+probe Ql (Unsp spec) Not detected Normal NOT DETECTED The [facility] Comment on above: Result Comment: This test is not yet approved or cleared by the [place] FDA. When there are no FDA-approved or cleared tests available, and other criteria are met, FDA can make tests available under an emergency access mechanism called an Emergency Use Authorization (EUA). The EUA for this test is supported by the [employer] of Health and Human Service's (HHS's) declaration [...] By: #### M G, RENAL, URIC #### [facility] [address] [place], [place] [address] Dr. Shayne Roldan XR CHEST 2 Von [...] NARDA LONDONO Date: 2022-06-08 19:58 Normal [facility] Covid-19 PCR (CVD[facility])on SARS-CoV-2 (COVID-19) RNA KAYLEE+probe Ql (Unsp spec) Not detected Normal NOT DETECTED The [facility] Comment on above: Result Comment: This test is not yet approved or cleared by the [place] FDA. When there are no FDA-approved or cleared tests available, and other criteria are met, FDA can make tests available under an emergency access mechanism called an Emergency Use Authorization (EUA). The EUA for this test is supported by the [employer] Health and Human Service's (HHS's) declaration [...] consistent with SARS-CoV-2. Performed By: #### [facility] #### [facility] [address] [place] [address] Dr. Shayne Roldan DEXA AXIALon 03-01-2022 DEXA AXIAL [facility] Department of Radiology [address] [place] [address] Patient Name: DIANA CHAMPION : [...] characteristics. Electronically signed: Luzma Fernandez. Transcribed by: [email or web address], User Resident: Electronically Signed by: LUZMA FERNANDEZ @ 03/02/2022 01:07 PM Normal [facility] SCOLIOSIS 2 [facility] 02-24-2022 SCOLIOSIS 2 [facility] Department of Radiology [address] [place] [id number] Patient Name: DIANA CHAMPION : 1955 Sex: F Age: Race: White Pt. Location: Patient Status: D Ordered Date: 02/24/2022 1:25:00 PM Completed Date: 02/24/2022 01:44 PM Requesting Provider: CINDA ANTONIO Attending Provider: Report Copy To: Signs & Symptoms: M43.10 Spondylolisthesis, site unspecified I10 History: Comments: Views (X-RAY, SCOLIOSIS): PA, Lateral evaluate Exam: SCOLIOSIS 2 [facility] Scoliosis. Worsening pain. Frontal and lateral thoracolumbar spine IMPRESSION: 1. Diffuse disc disease and facet arthritis. Right convex mid lumbar curvature measuring 16 degrees. Interbody fusion hardware lower lumbar spine. Electronically signed: Hugo Lynn. Transcribed by: [email or web address], User Resident: Electronically Signed by: HUGO LYNN @ 02/26/2022 11:07 AM Normal [facility] Comment on above: Order Comment: Views (X-RAY, SCOLIOSIS): PA, Lateral evaluate CT LUMBAR SPINE W CONTRASTon 01-24-2022 CT LUMBAR SPINE W CONTRAST [facility] Department of Radiology [address] [place] [address] Patient Name: DIANA CHAMPION : [...] L1-2. Electronically signed: Gaurang Lawrence. Transcribed by: [email or web address], User Resident: Electronically Signed by: GAURANG LAWRENCE @ 01/26/2022 08:58 AM Normal [facility] Comment on above: Order Comment: , CT MYELOGRAM>PAPER WORK IN CHART LUMBAR MYELOGRAMon 2 LUMBAR MYELOGRAM [facility] Department of Radiology [address] [place] [phone] Patient Name: DIANA CHAMPION : 1955 Sex: F Age: Race: White Pt. Location: Patient Status: O Ordered Date: 01/09/2022 9:00:00 AM Completed Date: 01/24/2022 02:37 PM Requesting Provider: JOO LINN Attending Provider: JOO LINN Report Copy To: UNKNOWN, PHYSICIAN Signs & Symptoms: M54.16 Radiculopathy, lumbar region I10 History: Jessica Is patient on thinners? 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 Consent was obtained. Timeout: [place] protocol timeout verification performed. PROCEDURE: Estimated blood [...] findings in this report. Electronically signed: Greg aMrlow. Transcribed by: [email or web address], User Resident: DEBBIE JI Electronically Signed by: GREG MARLOW @ 01/24/2022 04:07 PM I personally read this/these film(s) with this resident Normal [facility] Comment on above: Order Comment: , CT MYELOGRAM> PAPER WORK SCANNED IN CHART , CT MYELOGRAM> PAPER WORK SCANNED IN CHART , , , Ordering Provider - JOO LINN MD , HIP LEFT 1 OR 2 VWS WITH PEL VISon 01-06-2022 HIP LEFT 1 OR 2 VWS WITH PELVIS [facility] Department of Radiology [address] [place] [id number] Patient Name: DIANA CHAMPION : 1955 Sex: F Age: Race: White Pt. Location: Patient Status: D Ordered Date: 12/21/2021 10:45:00 AM Completed Date: 01/06/2022 01:24 PM Requesting Provider: JOO LINN Attending Provider: JOO LINN Report Copy To: Signs & Symptoms: Z96.642 Presence of left artificial hip joint I10 History: [place] Comments: Evaluate Exam: HIP LEFT 1 OR 2 VWS WITH PELVIS HIP LEFT 1 OR 2 VWS WITH PELVIS HISTORY: Hip replacement, follow-up. COMPARISON: None. IMPRESSION: 1. Redemonstrated left hip prosthesis without visible complication. 2. Advanced right hip arthritis without significant change with advanced joint space narrowing. Unchanged lumbosacral fusion hardware. Electronically signed: Joe Matthew. Transcribed by: [email or web address], User Resident: Electronically Signed by: JOE MATTHEW @ 01/09/2022 04:45 PM Normal [facility] Comment on above: Order Comment: Evalu ate Vital Signs Date Time Vital Sign Value Performing Clinician Facility 08-17-2023 09:20-0400 Body height 165.1 cm Herberth Joana Other [facility] Other 08-17-2023 09:20-0400 Body mass index (BMI) [Ratio] 38.1 kg/m2 Herberth Joana Other [facility] Other 08-17-2023 09:20-0400 Body temperature 98.8 [degF] Herberth Joana Other [facility] Other 08-17-2023 09:20-0400 Body weight 103.87 kg Herberth Joana Other [facility] Other 08-17-2023 09:20-0400 Diastolic blood pressure 85 mm[Hg] Herberth Joana Other [facility] Other 08-17-2023 09:20-0400 Respiratory rate 18 /min Herberth Joana Other [facility] Other 08-17-2023 09:20-0400 SaO2% (BldA) [Mass fraction] 94 % Herberth Joana Other [facility] Other 08-17-2023 09:20-0400 Systolic blood pressure 151 mm[Hg] Herberth Joana Other [facility] Other 03-02-2023 10:00-0400 Body height 165.1 cm Herberth Joana Other [facility] Other 03-02-2023 10:00-0400 Body mass index (BMI) [Ratio] 37.29 kg/m2 Herberth Joana Other [facility] Other 03-02-2023 10:00-0400 Body temperature 98.9 [degF] Herberth Joana Other [facility] Other 03-02-2023 10:00-0400 Body weight 101.65 kg Herberth Joana Other [facility] Other 03-02-2023 10:00-0400 Diastolic blood pressure 76 mm[Hg] Herberth Joana Other [facility] Other 03-02-2023 10:00-0400 Respiratory rate 20 /min Herberth Joana Other [facility] Other 03-02-2023 10:00-0400 SaO2% (BldA) [Mass fraction] 96 % Herberth Joana Other [facility] Other 03-02-2023 10:00-0400 Systolic blood pressure 136 mm[Hg] Herberth Joana Other [facility] Other 12-08-2022 09:30-0500 Diastolic blood pressure 59 mm[Hg] MD Shaikh Ohara Work Phone: [facility] 12-08-2022 09:30-0500 Heart rate 55 /min MD Shaikh Ohara Work Phone: [facility] 12-08-2022 09:30-0500 Respiratory rate 16 /min MD Shaikh Ohara Work Phone: [facility] 12-08-2022 09:30-0500 SaO2% (BldA) [Mass fraction] 96 % MD Shaikh Ohara Work Phone: [facility] 12-08-2022 09:30-0500 Systolic blood pressure 112 mm[Hg] MD Shaikh Ohara Work Phone: [facility] 12-08-2022 06:54-0500 Body height 162.56 cm MD Shaikh Ohara Work Phone: [facility] 12-08-2022 06:54-0500 Body temperature 98.2 [degF] MD Shaikh Ohara Work Phone: [facility] 12-08-2022 06:54-0500 Body weight 104.32 kg MD Shaikh Ohara Work Phone: [facility] 08-09-2022 11:00-0400 Body height 165.1 cm Herberth Joana Other [facility] Other 08-09-2022 11:00-0400 Body mass index (BMI) [Ratio] 37.87 kg/m2 Herberth Joana Other [facility] Other 08-09-2022 11:00-0400 Body temperature 97.2 [degF] Herberth Joana Other [facility] Other 08-09-2022 11:00-0400 Body weight 103.24 kg Herberth Joana Other [facility] Other 08-09-2022 11:00-0400 Diastolic blood pressure 88 mm[Hg] Herberth Joana Other [facility] Other 08-09-2022 11:00-0400 Respiratory rate 20 /min Herberth Joana Other [facility] Other 08-09-2022 11:00-0400 SaO2% (BldA) [Mass fraction] 95 % Herberth Joana Other [facility] Other 08-09-2022 11:00-0400 Systolic blood pressure 133 mm[Hg] Herberth Joana Other [facility] Other 11-17-2021 10:40-0500 Body height 165.1 cm Herberth Joana Other [facility] Other 11-17-2021 10:40-0500 Body mass index (BMI) [Ratio] 37.97 kg/m2 Herberth Joana Other [facility] Other 11-17-2021 10:40-0500 Body temperature 97.8 [degF] Herberth Joana Other [facility] Other 11-17-2021 10:40-0500 Body weight 103.51 kg Herberth Joana Other [facility] Other 11-17-2021 10:40-0500 Diastolic blood pressure 70 mm[Hg] Herberth Joana Other [facility] Other 11-17-2021 10:40-0500 Respiratory rate 18 /min Herberth Joana Other [facility] Other 11-17-2021 10:40-0500 SaO2% (BldA) [Mass fraction] 94 % Herberth Joana Other [facility] Other 11-17-2021 10:40-0500 Systolic blood pressure 130 mm[Hg] Herberth Joana Other [facility] Other 08-30-2021 13:15-0400 Body height 165.1 cm Rena Ginty Other [facility] Other 08-30-2021 13:15-0400 Body mass index (BMI) [Ratio] 36.61 kg/m2 Rena Ginty Other [facility] Other 08-30-2021 13:15-0400 Body temperature 98.7 [degF] Rena Ginty Other [facility] Other 08-30-2021 13:15-0400 Body weight 99.79 kg Rena Ginty Other [facility] Other 08-30-2021 13:15-0400 SaO2% (BldA) [Mass fraction] 90 % Rena Ginty Other [facility] Other Encounters Encounter Date Encounter Type Care Provider Facility Start: 12-18-2023 End: 12-19-2023 ambulatory Jayshree Vargas MD Facility: [facility] Start: 12-05-2023 End: 12-05-2023 ambulatory SHAIKH LEV Not Available Start: 11-13-2023 End: 11-14-2023 ambulatory Jayshree Vargas MD Facility: [facility] Start: 11-02-2023 End: 11-02-2023 ambulatory SHAIKH LEV Not Available Start: 10-09-2023 End: 10-10-2023 ambulatory Jayshree Vargas MD Facility: [facility] Start: 10-04-2023 End: 10-04-2023 ambulatory SHAIKH LEV Not Available Start: 09-07-2023 End: 09-07-2023 ambulatory Herberth Joana Other [facility] Other Start: 09-07-2023 Telephone encounter Herberth Joana [facility] Start: 08-28-2023 End: 08-28-2023 ambulatory Herberth Joana Other [facility] Other Start: 08-28-2023 Telephone encounter Herberth Joana [facility] Start: 08-21-2023 End: 08-22-2023 ambulatory Jayshree Vargas MD Facility: [facility] Start: 08-17-2023 End: 08-17-2023 ambulatory Herberth Joana Other [facility] Other Start: 08-17-2023 Office outpatient visit 25 minutes Herberth Joana [facility] [place] Start: 05-08-2023 End: 05-08-2023 [facility] Start: 04-04-2023 End: 04-04-2023 ambulatory SHAIKH Dimitry OHARA Facility:[facility] Start: 03-24-2023 End: 03-25-[address] STEPH GRANADOS Facility: Start: 03-23-2023 ambulatory JOO [facility] Start: 03-02-2023 End: 03-02-2023 ambulatory Herberth Joana Other [place] [employer] Other Start: 03-02-2023 Office outpatient visit 25 minutes Herberth Joana [facility] [place] Start: 02-25-2023 End: 02-26-2023 ambulatory HERBERTH JOANA Facility:[facility] Start: 02-22-2023 End: 02-23-2023 ambulatory BO MCCLAIN . Facility:[facility] Start: 12-15-2022 End: 12-16-[address] JACK HALL . Facility:[facility] Start: 12-08-2022 End: 12-08-2022 ambulatory Shaikh Lev Facility:[facility] Start: 12-08-2022 End: 12-08-2022 Admission to same day surgery center MD Shaikh Ohara Work Phone: [facility] Work Phone: Start: 12-08-2022 End: 12-08-2022 ambulatory MD Shaikh Ohara Work Phone: [facility] Work Phone: Start: 11-11-2022 End: 11-11-[address] JACK HALL . Facility:[facility] Start: 11-09-2022 End: 11-09-2022 ambulatory Aziz Bakhous Other [facility] Other Start: 11-09-2022 Telephone encounter Azkatherine Gonzalezs [facility] Start: 08-19-2022 End: 08-20-2022 ambulatory HERBERTH JOANA Facility:[facility] Start: 08-09-2022 End: 08-09-2022 ambulatory Herberth Joana Other [facility] Other Start: 08-09-2022 Office outpatient visit 10 minutes Herberth Joana [facility] Start: 08-09-2022 Telephone encounter Herberth Joana [facility] Start: 08-05-2022 Telephone encounter Herberth Joana [facility] Start: 08-05-2022 End: 08-06-2022 ambulatory HERBERTH JOANA [place] [employer] Other Start: 07-08-2022 End: 07-08-2022 ambulatory Gato Domingo Other [facility] Other Start: 07-08-2022 Telephone encounter Gato Cesar ck [facility] Start: 07-05-2022 End: 07-06-2022 ambulatory SHAIKH Dimitry OHARA Facility:[facility] Start: 06-08-2022 End: 06-09-2022 ambulatory SAUNDERS H FAWWAD Facility:[facility] Start: 06-07-2022 End: 06-07-2022 ambulatory SAUNDERS H FAWWAD Facility:[facility] Start: 01-24-2022 End: 01-25-2022 ambulatory PHYSICIAN UNKNOWN Facility:[facility] Start: 11-17-2021 End: 11-17-2021 ambulatory Herberth Joana Other [facility] Other Start: 11-17-2021 Office outpatient visit 15 minutes Herberth Joana [facility] Start: 08-30-2021 Office outpatient visit 15 minutes Rena Ginty [facility] [place] Start: 09-11-2020 End: 09-11-2020 Chart abstracting Miguelito Cielo Work Phone: Hematology/Oncology Start: 09-11-2020 End: 09-11-2020 Patient encounter procedure External Provider [facility] Start: 09-11-2020 Results Only External Provider [facility] Start: 09-30-2019 End: 09-30-2019 Patient encounter procedure [facility] [place] Start: 07-07-2017 End: 07-07-2017 Admission to day surgery [facility] Start: 05-24-2004 Evaluation and management of inpatient [facility] [place] Start: 04-26-2004 Evaluation and management of inpatient [facility] [place] Procedures Date Procedure Procedure Detail Performing Clinician Start: 12-08-2022 Colonoscopy MD Shaikh Ohara Work Phone: Start: 09-11-2020 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 Tobacco Feeder Catcher al Provider Start: 09-11-2020 EXTERNAL LAB External P rovider Start: 09-11-2020 EXTERNAL PROCEDURE Exte rnal Provider Start: 09-30-2019 Ultrasonography of b ilateral kidneys Steph Collier Plan of Treatment Date Care Activity Detail Author Start: 12-08-2022 [facility] Start: 07-07-2020 Influenza vaccination INFLUENZA (#1) [facility] Start: 2006 SHINGRIX VACCINE (1 of 2) SHINGRIX VACCINE (1 of 2) [facility] Start: 2006 Tuberculosis screening COLORECTAL CANCER SCREENING,SEE MODIFIER [facility] Start: 2001 DIABETES SCREEN DIABETES SCREEN [facility] Start: 2001 LIPID SCREEN LIPID SCREEN [facility] Start: 1996 Mammography MAMMOGRAM [facility] Start: 1986 HPV TESTING HPV TESTING [facility] Start: 1977 PAP TESTING PAP TESTING [facility] Start: 1975 Urine microalbumin profile DTAP,TDAP,TD (1 - Tdap) [facility] Start: 1974 HEPATITIS C SCREENING HEPATITIS C SCREENING [facility] Start: 1974 HIV SCREENING HIV SCREENING [facility] Patient Education Colon Polypect shahram Hemorrhoids (DC) Diverticulosis (DC) [facility] Work Phone: [facility] Immunizations Immunization Date Immunization Notes Care Provider Fa tanmayty 07-18-2018 Depo-Medrol 40 mg Rena Gint y Other [facility] Other 01-31-2018 Depo-Medrol 40 mg Rena Gint y Other [facility] Other 08-09-2017 influenza, seasonal, injectable, preservative free Rena Ginty Other [facility] Other Payers Date Payer Category Payer Unknown 2022 Self-pay [id number] 2021 Medicare [id number] 2020 Medicaid [id number] 2019 Medicaid MEDICAID [facility] MEDICAID [id number] 2019-Present Medicaid [id number] 2016 Medicare MEDICARE MEDICAR E A AND B [id number] 2016-Present [place] [id number] 1959 Unknown [id number] 1956 Unknown [id number] 2.16.840.1.818551.3.579.2.647 1956 Unknown [id number] 2.16.840.1.345008.3.579.2.593 1956 Unknown [id number] 2.16.840.1.619905.3.579.2.593 1956 Unknown [id number] 2.16.840.1.618139.3.579.2.593 1956 Unknown [id number] 2.16.840.1.320030.3.579.2.593 1956 Unknown [id number] 2.16.840.1.662293.3.579.2.593 1956 Unknown [id number] 2.16.840.1.362989.3.579.2.593 1956 Unknown [id number] 2.16.840.1.801250.3.579.2.593 1956 Unknown [id number] 2.16.840.1.639840.3.579.2.593 1956 Unknown [id number] 2.16.840.1.953130.3.579.2.593 1956 Unknown [id number] 2.16.840.1.868676.3.579.2.593 1956 Unknown [id number] 2.16.840.1.185363.3.579.2.593 1956 Unknown [id number] 2.16.840.1.197921.3.579.2.1259 1956 Unknown [id number] 2.16.840.1.451571.3.579.2.1259 1956 Unknown [id number] 2.16.840.1.196267.3.579.2.1259 1956 Unknown [id number] 2.16.840.1.468161.3.579.2.196 1956 Unknown [id number] 2.16.840.1.771640.3.579.2.196 1956 Unknown [id number] 2.16.840.1.405919.3.579.2.196 1956 Unknown [id number] 2.16.840.1.874886.3.579.2.196 Medicare [id number] Unknown HCAP/HFA/FAP Active [id number] Unknown [id number] 2.16.840.1.093272.3.579.2.531 Social History Date Type Detail Facility Tobacco smoking stat [facility] Unknown if ever smoked [facility] Start: 1955 Sex Assigned At Female F [facility] Start: 09-11-2020 End: 12-08-2022 Tobacco smoking status NHIS Never smoker [facility] Start: 09-11-2020 Tobacco use and exposure Never used [facility] Start: 09-11-2020 Alcohol intake Lifetime non-d my (finding) [facility] Start: 09-11-2020 History SDOH Alcohol Frequency 1 [facility] Sex Assigned At Not on file [facility] Sex Assigned At Sex Assigned At Bir th [facility] Other Goals Date Patient Goal Desired Activity /State Clinical Notes 08-30-2021 to 09-07-2023 Note Date & Type Note Facility 09-07-2023 Evaluation note Encounter Date Diagnosis Assessment Notes Sep, Hypomagnesemia (ICD-10 - E83.42) [facility] Other 10-23-2023 Evaluation note* Encounter Date Diagnosis Assessment Notes Treatment Notes Treatment Clinical Notes Aug, Nico lopez I-IV (ICD-10 - I12.9) [facility] Other 10-12-2023 Evaluation note* Encounter Date Diagnosis Assessment Notes Treatment Notes Treatment Clinical Notes Aug, Nico lopez I-IV (ICD-10 - I12.9) Blood pressure is [...] PPI induced GI losses. Continue oral Magnesium [facility] Chief Complaint: Patient here for 1 year follow up CAD and hypertension. She was recently discharged from [facility] for Covid-19. She says hydrochlorothiazide was stopped [...] breath since then. 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 Her chest pain is noncardiac. She has no other cardiac complaints. Cardiology ROS: Review of Systems Cardiovascular: Positive for chest pain and dyspnea on exertion. Respiratory: Positive for wheezing. Musculoskeletal: Positive for arthritis, back pain, joint pain and myalgias. Neurological: Positive for light-headedness. All other systems reviewed and are negative. Past Medical History She has a past medical history of Cancer (CMS/[facility]) and Hypertension. Surgical History She has a [...] 325 mg by mouth., Disp: , Rfl: srjamtkxgxr-cqxbtguvt-homxjdhx 100-62.5-25 mcg blister with device, , Disp: [...] mouth in the morning., Disp: , Rfl: Akin Ellipta 200-62.5-25 mcg blister with device, INHALE [...] CTAB, no increased eff (more content not included)...[facility]05-19-2023 NotePROCEDURE: XR HIP RT 2 3V W PELVIS HISTORY: Pain in right hip joint , chronic COMPARISON: XR L-spine 02/26/2019, XR left hip with pelvis 03/11/2017 FINDINGS: BONES:Complete loss of the right hip joint space with biaz-gm-yjti articulation, subchondral sclerosis and cysts, and large periarticular degenerative osteophytes. No fracture or dislocation. Left hip replacement. Mechanical fusion of L5-S1 and moderate dextroscoliosis of lumbar spine. SOFT TISSUES:No visible soft tissue swelling. EFFUSION:None visible. OTHER: Negative. IMPRESSION: 1. Marked degenerative joint disease of the right hip; progressed since prior study. 2. Stable surgical changes. Electronically authenticated by: STEPH GRANADOS Date: 2023-03-24 12:55[facility]05-18-2023 NoteSubjective 03/23/23 Diana Champion is a 67 [...] LIGATION Past Medical History: Diagnosis Date Cancer ([facility]) Hypertension Objective General: [...] from the patient's PCP as well as bank examiner for a right anterior total hip arthroplasty. [...] may be an additional personal documentation from me.[facility]04-27-2023 Evaluation note* Encounter Date Diagnosis Assessment Notes Treatment Notes Treatment Clinical Notes Feb, Nico lopez w cr kid I-IV (ICD-10 [...] PPI induced GI losses. Continue oral Magnesium [facility] Other [facility]* Encounter Date Diagnosis Assessment Notes Treatment Notes Treatment Clinical Notes Nov, Hypokalemia (ICD-10 - E87.6) Nov, Hypomagnesemia (ICD-10 - E83.42) [facility] Other 10-04-2022 Evaluation note* Encounter Date [...] office does not accept her new insurance. [facility] Other 09-02-2022 Evaluation note* Encounter Date Diagnosis Assessment Notes Treatment Notes Treatment Clinical Notes Jul, History of colon cancer (ICD-10 - Z85.038) [facility] Other 01-12-2022 Evaluation note* Encounter Date [...] potassium wasting. I have prescribed oral potassium. [facility] Other 10-25-2021 Evaluation note* Encounter Date [...] [facility] [place] document [facility] Other Evaluation noteNo InformationNort [place] Other Evaluation note* Diagnosis Onset Date Resolution Status History of colon cancer [facility] Work Phone: History general [...] IN 08/2019 Hospitalization History HIP REVISION 03/2020 [facility] Other Hisehaf general Narrative - Reported* Type Description Date [...] Hospitalization History COVID X 2 WEEKS 04/2023 [facility] Other Hospital Discharge instructions Additional Instructions [...] if you have any problems. -Office number [phone] Work Phone: Advance Directives No Advanced Directives [...] or prosecute any alcohol or drug abuse patient.[facility] the event this information is protected by the Federal Confidentiality of Alcohol and Drug Abuse Patient Records regulations: The Federal rules restrict any use of the information to criminally investigate or prosecute any alcohol or drug abuse patient.[facility] System[facility] the event this information is protected by the Federal Confidentiality of Alcohol and Drug Abuse Patient Records regulations: The Federal rules restrict any use of the information to criminally investigate or prosecute any alcohol or drug abuse patient.[facility] System[facility] the event this information is protected by the Federal Confidentiality of Alcohol and Drug Abuse Patient Records regulations: The Federal rules restrict any use of the information to criminally investigate or prosecute any alcohol or drug abuse patient.[facility] INFORMATION SOURCE (unrecogn ized section and content) DATE CREATED AUTHOR 03/03/2022 [facility] DATE CREATED AUTHOR AUTHOR'S ORGANIZ ATION 04/17/2023 [facility] DATE CREATED AUTHOR AUTHOR'S ORGANIZ ATION 05/08/2023 [facility] DATE CREATED AUTHOR AUTHOR'S ORGANIZ ATION 06/07/2023 [facility] DATE CREATED AUTHOR AUTHOR'S ORGANIZ ATION 12/06/2023 [facility] DATE CREATED AUTHOR AUTHOR'S ORGANIZ ATION 12/24/2023 [facility] REASON FOR VISIT (unrecogniz ed section [...] BE BASED ON THE PRIMARY CLINICAL RECORDS. [employer] provides no warranty or guarantee of the accuracy or completeness of information in this document.
== END 2024-01-02 19:33 | disposition home or self-care (01) ==
LOC: SLEEP 19:32
PROVIDERS: PCP Internal Medicine; Visit Provider Internal Medicine
DX: G47.33 Obstructive sleep apnea (adult) (pediatric) (principal); G47.11 Idiopathic hypersomnia with long sleep time; G25.81 Restless legs syndrome
CPT/HCPCS: 95810

== ENCOUNTER 2024-01-18 08:37 | Outpatient (OUT) | payer OTHER, SELFPAY ==
--- OUTSIDE RECORDS SUMMARY | 2024-01-18 08:45 | XMS_ITS | CCD ---
Author Name Unknown Address [address] [place] [address] Organization [facility] Care Team Providers Care Lead Printer Name Role Phone Steph Collier Attending Provider [...] Provider MD Nicky Ohara Primary Care Provider [phone] Gilma Trent Unavailable JOANA, HERBERTH Attending Unavailable [...] e FABIRD, SAUNDERS H Primary Care Unavailable OMAHA, DR BRITTANY Elizondo Consulting Unavailable DARWIN, DR [...] Attending Unavailable FAWWAD, SAUNDERS H Consulting Unavailable [facility] Attending Unavailable JOO LINN Attending Unavailable Fawwad, Saunders Primary Care Unavailable Gato Domingo Attending UnavailGato Chatterjee Admitting Unavailabl e Alicia DRAPER, Andrius Johnson Attending Unavailable Gilorenzaitis , Andrius Alex Attending Unavailable Gilorenzaitis , Andrius Alex Attending Unavailable Giann DRAPER, Andrius Alex Attending Unavailable FAWWAD, SAUNDERS Attending Unavailable FAWWAD, SAUNDERS Attending Unavailable FAWWAD, SAUNDERS Attending Unavailable FAWWAD, SAUNDERS Attending Unavailable Unavailable Unavailable Unavailable Allergies Allergy Classification Reported Allergen(s) Allergy Type Date of Onset Reaction(s) Facility (3 sources) fentaNYL; Translations: [fentanyl] Drug Allergy 07-07-20 17 Hallucinating [facility] (2 sources) linezolid; Translations: [LINEZOLID] Drug Allergy 03-17-20 20 [facility] (20 sources) Vancomycin; Translations: [VANCOMYCIN] Drug Allergy 03-17-20 20 Unknown [facility] (11 sources) DENIES METAL SENSITITIVITY Propensity to adverse reactions Unknown E96 Other Medications Current Medications Medication Drug Class(es) [...] (11 sources) Dihydropyridine Calcium Channel Edwin Start: take 2.5 mg by mouth twice daily [...] each nostril Nasally Once a day Active Rrrtxuagbve-Fqgyqkuzy-Xx lanter (1 source) Star t: 02-0 220 23 Bjfiughrrhp-Rsutldgwe-H ilanter (Trelegy Ellipta) 200-62.5-25 mcg blister with [...] 1 puff(s) by inhalation twice daily Ipratropium [place] Active 2 PUFF Inhalation Twice daily July [...] 2017 10:21am take 1 capsule by [facility] every twelve hours Omeprazole 20 MG 1 [...] Active Start: 08-05-2022 [facility] Potassium Chloride ER 20 [...] Interpretation Reference Range Facility Follow-Upon 05-08-2023 Follow-Up [id number] Nell Champion 1955 F Date Provider Department Center 05/08/2023 Siddharth-HETAL SCALES CARD Blair Baker Family History Problem Relation Age of Onset Heart failure Mother Heart disease Father Family Status - Relation Status Age at Mother Father Level of Service:92283 [place] OFFICE/OUTPATIENT ESTABLISHED LOW MDM 20-29 MIN [facility] 3605-03-2023 36 PATIENT CALLED TO CANCEL SURGERY FOR July D/T HER LUNG DISEASE. WILL CALL TO RESCHEDULE WHEN FULLY HEALED FROM LUNGS AND CLEARED//[facility] 04-19-2023 36 FYI CALLED PATIENT T O F/U ON MEDICAL AND PULMONARY CLEARANCES FOR R ELZA ON 05/19 AND PRE-OP RIYA'T 04/27 WITH US AND PATIENT IS CURRENTLY INPATIENT SINCE LAST WEEK D/T COVID AND PULMONARY ISSUES, SHE WILL CALL US ON 04/25 WITH PROGRESS, PLEASE ADVISE IF WE SHOULD CANCEL SURGERY FOR NOW..THANKS//[facility] SYMPTOMATIC COVID-19 ANTIGEN on 04-04-2023 EUA Statement SEE BELOW [facility] Comment on above: Result Comment: This test [...] sooner. Performed By: #### C VDAGS #### [facility] [address] [place] [address] Dr. Shayne Roldan SARS-CoV-2 (COVID-19) RNA KAYLEE+probe Ql (Unsp spec) Positive Abnormal NEGATIVE [facility] Comment on above: Performed By: #### C VDAGS #### [facility] [address] [place] [address] Dr. Shayne Roldan XR LSPINE 2_3 VIEWSon [...] STEPH GRANADOS Date: 2023-03-24 12:52 Normal [facility] PTH INTACTon 02-27-2023 PTH, Intact 87 pg/mL Critically high 15-65 [facility] Comment on above: Performed By: #### P THINT #### [facility] [address] [place] [address] Dr. Shayne Roldan HEMOGRAM AND PLATELon 2022 Hematocrit (Bld) [Volume fraction] 44.4 % Normal 36.0-48.0 [facility] Comment on above: Performed By: #### H H #### [facility] [address] [place] [address] Dr. Shayne Roldan Hemoglobin (Bld) [Mass/Vol] 14.5 g/dL Normal 12.0-16.0 [facility] Comment on above: Performed By: #### H H #### [facility] [address] [place] [address] Dr. Shayne Roldan MCH (RBC) [Entitic mass] 30.3 pg Normal 26.7-34.0 [facility] Comment on above: Performed By: #### H H #### [facility] [address] [place] [address] Dr. Shayne Roldan MCHC (RBC) [Mass/Vol] 32.7 g/dL Normal 29.9-35.2 [facility] Comment on above: Performed By: #### H H #### [facility] [address] [place] [address] Dr. Shayne Roldan MCV (RBC) [Entitic vol] 92.9 fL Normal 81.0-99.0 [facility] Comment on above: Performed By: #### H H #### [facility] [address] [place] [address] Dr. Shayne Roldan PLT 367 103/ul Normal 150-450 [facility] Comment on above: Performed By: #### H H #### [facility] [address] [place] [address] Dr. Shayne Roldan RBC 4.78 106/ul Normal 4.20-5.40 [facility] Comment on above: Performed By: #### H H #### [facility] [address] [place] [address] Dr. Shayne Roldan WBC 9.9 103/ul Normal 4.0-11.0 [facility] Comment on above: Performed By: #### H H #### [facility] [address] [place] [address] Dr. Shayne Roldan MAGNESIUMon 02-25-2023 Magnesium [Mass/Vol] 1.6 mg/dL Critically low 1.8-2.4 [facility] Comment on above: Performed By: #### M G, RENAL, URIC #### [facility] [address] [place] [address] Dr. Shayne Roldan RENAL FUNCTION PANELon 02-25 Albumin [Mass/Vol] 3.4 g/dL Normal 3.4-5.[address] [facility] Comment on above: Performed By: #### M Poncho, RENAL, URIC #### [facility] [address] [place] [address] Dr. Shayne Roldan Calcium [Mass/Vol] 8.7 mg/dL Normal 8.5-10.[address] [facility] Comment on above: Performed By: #### M G, RENAL, URIC #### [facility] [address] [address] [address] Shayne Roldan Chloride [Moles/Vol] 104 mmol/L Normal 98-107 [facility] Comment on above: Performed By: #### M G, RENAL, URIC #### [facility] [address] [address] [address] Shayne Roldan CO2 [Moles/Vol] 25.9 mmol/L Normal 21.0-32.0 [facility] Comment on above: Performed By: #### M G, RENAL, URIC #### [facility] [address] [address] [address] Shayne Roldan Creatinine [Mass/Vol] 1.19 mg/dL Critically high 0.55-1.02 [facility] Comment on above: Performed By: #### M G, RENAL, URIC #### [facility] [address] [place] [address] Dr. Shayne Roldan EGFR-AF [facility] 55 mL/min/1.73m2 Critically low >=60 [facility] Comment on above: Performed By: #### M G, RENAL, URIC #### [facility] [address] [place] [address] Dr. Shayne Roldan EGFR-NON AF [facility] 45 mL/min/1.73m2 Critically low >=60 [facility] Comment on above: Performed By: #### M G, RENAL, URIC #### [facility] [address] [address] [address] Shayne Roldan Glucose [Mass/Vol] 193 mg/dL Critically high 74-106 [facility] Comment on above: Performed By: #### M G, RENAL, URIC #### [facility] [address] [address] [address] Shayne Roldan Phosphate [Mass/Vol] 3.2 mg/dL Normal 2.6-4.7 [facility] Comment on above: Performed By: #### M G, RENAL, URIC #### [facility] [address] [address] [address] Shayne Roldan Potassium [Moles/Vol] 3.9 mmol/L Normal 3.5-5.1 [facility] Comment on above: Performed By: #### M G, RENAL, URIC #### [facility] [address] [place] [address] Dr. Shayne Roldan Sodium [Moles/Vol] 140 mmol/L Normal 136-145 [facility] Comment on above: Performed By: #### M G, RENAL, URIC #### [facility] [address] [place] [address] Dr. Shayne Roldan Urea nitrogen [Mass/Vol] 17.0 mg/dL Normal 7.0-18.0 [facility] Comment on above: Performed By: #### M G, RENAL, URIC #### [facility] [address] [place] [address] Dr. Shayne Roldan UA RANDOM W/MICROSCOPICon BACTERIA TRACE Abnormal NONE SEEN [facility] Comment on above: Performed By: #### M G, RENAL, URIC #### [facility] [address] [place] [address] Dr. Shayne Roldan Bilirubin Ql (U) Negative Normal NEGATIVE [facility] Comment on above: Performed By: #### M G, RENAL, URIC #### [facility] [address] [place] [address] Dr. Shayne Roldan CAST NONE SEEN Normal NONE SEEN [facility] Comment on above: Performed By: #### M G, RENAL, URIC #### [facility] [address] [place] [address] Dr. Shayne Roldan Clarity (U) CLEAR Normal CLEAR [facility] Comment on above: Performed By: #### M G, RENAL, URIC #### [facility] [address] [place] [address] Dr. Shayne Roldan Color (U) LT. YELLOW Normal YELLOW [facility] Comment on above: Performed By: #### M G, RENAL, URIC #### [facility] [address] [place] [address] Dr. Shayne Roldan Crystals LM Nom (Urine sed) NONE SEEN Normal NONE SEEN [facility] Comment on above: Performed By: #### M G, RENAL, URIC #### [facility] [address] [address] [address] Shayne Roldan Epithelial cells LM Ql (Urine sed) RARE Normal NONE SEEN /RARE [facility] Comment on above: Performed By: #### M G, RENAL, URIC #### [facility] [address] [address] [address] Shayne Roldan Glucose Ql (U) Negative Normal NEGATIVE [facility] Comment on above: Performed By: #### M G, RENAL, URIC #### [facility] [address] [address] [address] Shayne Roldan Hemoglobin Ql (U) Negative Normal NEGATIVE [facility] Comment on above: Performed By: #### M G, RENAL, URIC #### [facility] [address] [address] [address] Shayne Roldan Ketones Ql (U) Negative Normal NEGATIVE [facility] Comment on above: Performed By: #### M G, RENAL, URIC #### [facility] [address] [address] [address] Shayne Roldan LEUKOCYTES Negative Normal NEGATIVE [facility] Comment on above: Performed By: #### M G, RENAL, URIC #### [facility] [address] [address] [address] Shayne Roldan MUCOUS NONE SEEN Normal NONE SEEN [facility] Comment on above: Performed By: #### M G, RENAL, URIC #### [facility] [address] [address] [address] Shayne Roldan Nitrite Ql (U) Negative Normal NEGATIVE [facility] Comment on above: Performed By: #### M G, RENAL, URIC #### [facility] [address] [address] [address] Shayne Roldan pH (U) 5.0 [pH] Normal 5-9 [facility] Comment on above: Performed By: #### M G, RENAL, URIC #### [facility] [address] [address] [address] Shayne Roldan RBC 0-2 Normal 0-2 [facility] Comment on above: Performed By: #### M G, RENAL, URIC #### [facility] [address] [place] [address] Dr. Shayne Roldan SPEC GRAVITY 1.025 Normal 1.005-<=1.025 [facility] Comment on above: Performed By: #### M G, RENAL, URIC #### [facility] [address] [place] [address] Dr. Shayne Roldan UA PROTEIN Negative Normal NEGATIVE/ TRACE [facility] Comment on above: Performed By: #### M G, RENAL, URIC #### [facility] [address] [place] [address] Dr. Shayne Roldan Urobilinogen Qn (U) 0.2 {Rogelio'U}/dL Normal 0.2 - 1. 0 [facility] Comment on above: Performed By: #### M G, RENAL, URIC #### [facility] [address] [place] [address] Dr. Shayne Roldan WBC 0-2 Abnormal NONE SEEN [facility] Comment on above: Performed By: #### M G, RENAL, URIC #### [facility] [address] [place] [address] Dr. Shayne Roldan URIC ACID SERUMon 02-25-2023 Urate [Mass/Vol] 6.1 mg/dL Critically high 2.6-6.0 [facility] Comment on above: Performed By: #### M G, RENAL, URIC #### [facility] [address] [place] [address] Dr. Shayne Roldan URINE T PROTEIN CREAT RATIOo n 02-25-2023 Protein (U) [Mass/Vol] 13.0 mg/dL Critically high <=12.0 [facility] Comment on above: Performed By: #### M G, RENAL, URIC #### [facility] [address] [place] [address] Dr. Shayne Roldan UR PROT CREAT RAT 0.16 Normal [facility] Comment on above: Performed By: #### M G, RENAL, URIC #### [facility] [address] [place] [address] Dr. Shayne Roldan URINE CREAT 83.60 mg/dL Normal 20.00-300.00 [facility] Comment on above: Performed By: #### M G, RENAL, URIC #### [facility] [address] [place], [place] [address] Dr. Shayne Roldan VITAMIN D 25 OHon 02-25-2023 VIT D 25-OH 41.6 ng/mL Normal [facility] Comment on above: Performed By: #### M G, RENAL, URIC #### [facility] [address] [place], [place] [address] Dr. Shayne Roldan VIT D RANGES SEE BELOW Normal [facility] Comment on above: Result Comment: <20 ng/mL Vit D deficient 20 - <30 ng/mL Vit D insufficient 30 - 100 ng/mL Vit D sufficient >100 ng/mL Potential Toxicity Performed By: #### M G, RENAL, URIC #### [facility] [address] [place], [place] [address] Dr. Shayne Roldan XR CHEST 2 Von [...] BRITTANY GALDAMEZ Date: 2023-02-22 16:15 Normal [address] [facility] MAMM SCREEN 3D PRATEEK CADon 12-15-2022 MAMM SCREEN 3D PRATEEK CAD Patient: DIANA CHAMPION Exam Date: 12/15/2022 : 1955 Gender:F Ordering : DR JACK HALL . Admission #: [id number] Family : Order #: [id number] CLICK HERE TO VIEW EXAM RADIOLOGY REPORT PROCEDURE: MAMMOGRAM SCREENING 3D BILATERAL CAD COMPARISON: MAMM SCREEN 3D PRATEEK CAD, 11/26/2021. INDICATIONS: Calculator Name NCI Breast Cancer Risk Assessment Tool 5 Year Breast Cancer Risk 1.20% Lifetime Breast Cancer Risk 4.40% Personal Breast Cancer No Personal Ovarian Cancer No Treatments Excision, radiation, chemotherapy Family Cancers None LOCATION: [facility] BREAST COMPOSITION: Almost entirely fatty. FINDINGS: [...] Walters MD on 12/15/2022 at 10:51 Normal [facility] XR DEXA BONE DENSITYon 12-15 XR [...] by: STEPH GRANADOS Date: 2022-12-15 09:50 Normal [facility] Fran 12-08-2022 L - -------- Specimen: [id number] Received: 12/08/22 Status: CELIA Oleasudeep Num: [id number] Spec Type: Surgical Subm Dr: Gato Domingo MD Tissues: A Colon Biopsy (DESC COL POLYP) Procedures: FLORENCIA/Evonne, Gross/Micro L4 -------- Age/ Patient Sex Location Account Attending Physician -------- Diana Champion 67/F [id number] Gato Domingo MD -------- SPEC NUM: [id number] RECD: 12/08/226 STATUS: CELIA MARIO NUM: [id number] KENDRA: 12/08/[address] [facility] [address]: Gato Domingo MD ENTERED: 12/08/[address] [facility] [address]: SPEC TYPE: Surgical DEPT: S ENTERED BY: [id number] RECV BY: [id number] ORDERED: FLORENCIA/Evonne, Gross/Micro L4 ORDERED: FLORENCIA/Evonne, Gross/Micro L4 Pathological Diagnosis Colon, descending, polypectomy: [...] support the above pathologic diagnosis. CPT Codes 80347 -------- -------- Specimen: [id number] Received: 12/08/22 Status: CELIA Kay Num: [id number] Spec Type: Surgical Subm Dr: Gato Domingo MD Tissues: A Colon Biopsy (DESC COL POLYP) Procedures: FLORENCIA/Evonne, Gross/Micro L4 -------- Patient: Diana Champion [id number] (Continued) -------- Signed (signature on file) Eunice Rosa MD 12/09/22 1053 [facility] PAP ACOG PANEL 2: 30 to 65on 11-16-2022 . . Normal [facility] Comment on above: Performed By: #### 4 [id number] #### [facility] [address] [address] [address] Shayne Roldan Age Gdln ACOG Testing Comment Normal [facility] Comment on above: Result Comment: <21 or >65 or no age provided Performed By: #### 4 [id number] #### [facility] [address] [address] [address] Shayne Roldan DIAGNOSIS: Comment [facility] Comment on above: Result Comment: NEGA TIVE FOR INTRAEPITHELIAL LESION OR MALIGNANCY. Performed By: #### 4 [id number] #### [facility] [address] [place] [address] Dr. Shayne Roldan Methodology: Comment [facility] Comment on above: Result Comment: This liquid based ThinPrep(R) pap test was screened with the use of an image guided system. Performed By: #### 4 [id number] #### [facility] [address] [place] [address] Dr. Shayne Roldan Note: Comment [facility] Comment on above: Result Comment: The Pap smear is a screening test designed to aid in the detection of premalignant and malignant conditions of the uterine cervix. It is not a diagnostic procedure and should not be used as the sole means of detecting cervical cancer. Both false-positive and false-negative reports do occur. . Performed By: #### 4 [id number] #### [facility] [address] [address] [address] Shayne Roldan Performed by: Comment Normal [facility] Comment on above: Result Comment: Onur Aguilar Pathology Manager (ASCP) Performed By: #### 4 [id number] #### [facility] [address] [place] [address] Dr. Shayne Roldan Specimen adequacy: Comment Normal [facility] Comment on above: Result Comment: Sati sfactory for evaluation. Endocervical and/or squamous metaplastic cells (endocervical component) are present. Performed By: #### 4 [id number] #### [facility] [address] [place] [address] Dr. Shayne Roldan RENAL FUNCTION PANELon 08-19 Albumin [Mass/Vol] 3.4 g/dL Normal 3.4-5.0 [facility] Comment on above: Performed By: #### M G, RENAL, URIC #### [facility] [address] [place] [address] Dr. Shayne Roldan Calcium [Mass/Vol] 8.4 mg/dL Critically low 8.5-10.1 [facility] Comment on above: Performed By: #### M G, RENAL, URIC #### [facility] [address] [place] [address] Dr. Shayne Roldan Chloride [Moles/Vol] 103 mmol/L Normal 98-107 [facility] Comment on above: Performed By: #### M G, RENAL, URIC #### [facility] [address] [place] [address] Dr. Shayne Roldan CO2 [Moles/Vol] 27.8 mmol/L Normal 21.0-32.0 [facility] Comment on above: Performed By: #### M G, RENAL, URIC #### [facility] [address] [place] [address] Dr. Shayne Roldan Creatinine [Mass/Vol] 1.02 mg/dL Normal 0.55-1.02 [facility] Comment on above: Performed By: #### M G, RENAL, URIC #### [facility] [address] [place] [address] Dr. Shayne Roldan EGFR-AF [facility] >60 Normal >=60 [facility] Comment on above: Performed By: #### M G, RENAL, URIC #### [facility] [address] [place] [address] Dr. Shayne Roldan EGFR-NON AF [facility] 54 mL/min/1.73m2 Critically low >=60 [facility] Comment on above: Performed By: #### M G, RENAL, URIC #### [facility] [address] [address] [address] Shayne Roldan Glucose [Mass/Vol] 110 mg/dL Critically high 74-106 [facility] Comment on above: Performed By: #### M G, RENAL, URIC #### [facility] [address] [address] [address] Shayne Roldan Phosphate [Mass/Vol] 2.3 mg/dL Critically low 2.6-4.7 [facility] Comment on above: Performed By: #### M G, RENAL, URIC #### [facility] [address] [address] [address] Shayne Roldan Potassium [Moles/Vol] 3.2 mmol/L Critically low 3.5-5.1 [facility] Comment on above: Performed By: #### M G, RENAL, URIC #### [facility] [address] [place] [address] Dr. Shayne Roldan Sodium [Moles/Vol] 138 mmol/L Normal 136-145 [facility] Comment on above: Performed By: #### M G, RENAL, URIC #### [facility] [address] [address] [address] Shayne Roldan Urea nitrogen [Mass/Vol] 14.0 mg/dL Normal 7.0-18.0 [facility] Comment on above: Performed By: #### M G, RENAL, URIC #### [facility] [address] [address] [address] Shayne Roldan PTH INTACTon 08-06-2022 PTH, Intact 40 pg/mL Normal 15-65 [facility] Comment on above: Performed By: #### M G, RENAL, URIC #### [facility] [address] [place] [address] Dr. Shayne Roldan HEMOGRAM AND PLATELon 2021 Hematocrit (Bld) [Volume fraction] 39.8 % Normal 36.0-48.0 [facility] Comment on above: Performed By: #### M G, RENAL, URIC #### [facility] [address] [place] [address] Dr. Shayne Roldan Hemoglobin (Bld) [Mass/Vol] 13.4 g/dL Normal 12.0-16.0 [facility] Comment on above: Performed By: #### M G, RENAL, URIC #### [facility] [address] [place] [address] Dr. Shayne Roldan MCH (RBC) [Entitic mass] 30.5 pg Normal 26.7-34.0 [facility] Comment on above: Performed By: #### M G, RENAL, URIC #### [facility] [address] [place] [address] Dr. Shayne Roldan MCHC (RBC) [Mass/Vol] 33.7 g/dL Normal 29.9-35.2 [facility] Comment on above: Performed By: #### M Poncho, RENAL, URIC #### [facility] [address] [place] [address] Dr. Shayne Roldan MCV (RBC) [Entitic vol] 90.5 fL Normal 81.0-99.0 [facility] Comment on above: Performed By: #### M G, RENAL, URIC #### [facility] [address] [place] [address] Dr. Shayne Roldan PLT 299 103/ul Normal 150-450 [facility] Comment on above: Performed By: #### M Poncho, RENAL, URIC #### [facility] [address] [place] [address] Dr. Shayne Roldan RBC 4.40 106/ul Normal 4.20-5.40 [facility] Comment on above: Performed By: #### M G, RENAL, URIC #### [facility] [address] [place] [address] Dr. Shayne Roldan WBC 8.8 103/ul Normal 4.0-11.0 [facility] Comment on above: Performed By: #### M G, RENAL, URIC #### [facility] [address] [place] [address] Dr. Shayne Roldan MAGNESIUMon 08-05-2022 Magnesium [Mass/Vol] 1.5 mg/dL Critically low 1.8-2.4 [facility] Comment on above: Performed By: #### M G, RENAL, URIC #### [facility] [address] [place] [address] Dr. Shayne Roldan RENAL FUNCTION PANELon 08-05 Albumin [Mass/Vol] 3.5 g/dL Normal 3.4-5.0 [facility] Comment on above: Performed By: #### M G, RENAL, URIC #### [facility] [address] [place] [address] Dr. Shayne Roldan Calcium [Mass/Vol] 8.4 mg/dL Critically low 8.5-10.1 [facility] Comment on above: Performed By: #### M G, RENAL, URIC #### [facility] [address] [place] [address] Dr. Shayne Roldan Chloride [Moles/Vol] 101 mmol/L Normal 98-107 [facility] Comment on above: Performed By: #### M G, RENAL, URIC #### [facility] [address] [place] [address] Dr. Shayne Roldan CO2 [Moles/Vol] 29.5 mmol/L Normal 21.0-32.0 [facility] Comment on above: Performed By: #### M G, RENAL, URIC #### [facility] [address] [place] [address] Dr. Shayne Roldan Creatinine [Mass/Vol] 1.04 mg/dL Critically high 0.55-1.02 [facility] Comment on above: Performed By: #### M G, RENAL, URIC #### [facility] [address] [place] [address] Dr. Shayne Roldan EGFR-AF [facility] >60 Normal >=60 [facility] Comment on above: Performed By: #### M G, RENAL, URIC #### [facility] [address] [place] [address] Dr. Shayne Roldan EGFR-NON AF [facility] 53 mL/min/1.73m2 Critically low >=60 [facility] Comment on above: Performed By: #### M G, RENAL, URIC #### [facility] [address] [place] [address] Dr. Shayne Roldan Glucose [Mass/Vol] 92 mg/dL Normal 74-[address] [facility] Comment on above: Performed By: #### M G, RENAL, URIC #### [facility] [address] [place] [address] Dr. Shayne Roldan Phosphate [Mass/Vol] 2.4 mg/dL Critically low 2.6-4.7 [facility] Comment on above: Performed By: #### M G, RENAL, URIC #### [facility] [address] [place] [address] Dr. Shayne Roldan Potassium [Moles/Vol] 2.8 mmol/L Critically low 3.5-5.1 [facility] Comment on above: Performed By: #### M G, RENAL, URIC #### [facility] [address] [place] [address] Dr. Shayne Roldan Sodium [Moles/Vol] 137 mmol/L Normal 136-[address] [facility] Comment on above: Performed By: #### M G, RENAL, URIC #### [facility] [address] [place] [address] Dr. Shayne Roldan Urea nitrogen [Mass/Vol] 10.0 mg/dL Normal 7.0-18.0 [facility] Comment on above: Performed By: #### M G, RENAL, URIC #### [facility] [address] [place] [address] Dr. Shayne Roldan UA RANDOM W/MICROSCOPICon BACTERIA SMALL Abnormal NONE SEEN [facility] Comment on above: Performed By: #### U AMIC #### [facility] [address] [place] [address] Dr. Shayne Roldan Bilirubin Ql (U) Negative Normal NEGATIVE [facility] Comment on above: Performed By: #### U AMIC #### [facility] [address] [place] [address] Dr. Shayne Roldan CAST NONE SEEN Normal NONE SEEN [facility] Comment on above: Performed By: #### U AMIC #### [facility] [address] [place] [address] Dr. Shayne Roldan Clarity (U) CLEAR Normal CLEAR [facility] Comment on above: Performed By: #### U AMIC #### [facility] [address] [address] [address] Shayne Roldan Color (U) LT. YELLOW Normal YELLOW [facility] Comment on above: Performed By: #### U AMIC #### [facility] [address] [address] [address] Shayne Roldan Crystals LM Nom (Urine sed) NONE SEEN Normal NONE SEEN [facility] Comment on above: Performed By: #### U AMIC #### [facility] [address] [address] [address] Shayne Roldan Epithelial cells LM Ql (Urine sed) FEW Abnormal NONE SEEN /RARE [facility] Comment on above: Performed By: #### U AMIC #### [facility] [address] [address] [address] Shayne Roldan Glucose Ql (U) Negative Normal NEGATIVE [facility] Comment on above: Performed By: #### U AMIC #### [facility] [address] [address] [address] Shayne Roldan Hemoglobin Ql (U) Negative Normal NEGATIVE [facility] Comment on above: Performed By: #### U AMIC #### [facility] [address] [address] [address] Shayne Roldan Ketones Ql (U) Negative Normal NEGATIVE [facility] Comment on above: Performed By: #### U AMIC #### [facility] [address] [address] [address] Shayne Roldan LEUKOCYTES TRACE Abnormal NEGATIVE [facility] Comment on above: Performed By: #### U AMIC #### [facility] [address] [address] [address] Shayne Roldan MUCOUS NONE SEEN Normal NONE SEEN [facility] Comment on above: Performed By: #### U AMIC #### [facility] [address] [address] [address] Shayne Roldan Nitrite Ql (U) Negative Normal NEGATIVE [facility] Comment on above: Performed By: #### U AMIC #### [facility] [address] [place] [address] Dr. Shayne Roldan pH (U) 6.0 [pH] Normal 5-9 [facility] Comment on above: Performed By: #### U AMIC #### [facility] [address] [place] [address] Dr. Shayne Roldan RBC NONE SEEN Abnormal 0-2 [facility] Comment on above: Performed By: #### U AMIC #### [facility] [address] [place] [address] Dr. Shayne Roldan SPEC GRAVITY <=1.005 Abnormal 1.005-<=1.025 [facility] Comment on above: Performed By: #### U AMIC #### [facility] [address] [place] [address] Dr. Shayne Roldan UA PROTEIN Negative Normal NEGATIVE/ TRACE [facility] Comment on above: Performed By: #### U AMIC #### [facility] [address] [place] [address] Dr. Shayne Roldan Urobilinogen Qn (U) 0.2 {Rogelio'U}/dL Normal 0.2 - 1. 0 [facility] Comment on above: Performed By: #### U AMIC #### [facility] [address] [place] [address] Dr. Shayne Roldan WBC 5-10 Abnormal NONE SEEN [facility] Comment on above: Performed By: #### U AMIC #### [facility] [address] [place] [address] Dr. Shayne Roldan URIC ACID SERUMon 08-05-2022 Urate [Mass/Vol] 6.5 mg/dL Critically high 2.6-6.0 [facility] Comment on above: Performed By: #### M G, RENAL, URIC #### [facility] [address] [place] [address] Dr. Shayne Roldan URINE T PROTEIN CREAT RATIOo n 08-05-2022 Protein (U) [Mass/Vol] 4.8 mg/dL Normal <=12.0 [facility] Comment on above: Performed By: #### U RTPCR #### [facility] [address] [address] [address] Shayne Roldan UR PROT CREAT RAT 0.09 Normal [facility] Comment on above: Performed By: #### U RTPCR #### [facility] [address] [place] [address] Dr. Shayne Roldan URINE CREAT 52.65 mg/dL Normal 20.00-300.00 [facility] Comment on above: Performed By: #### U RTPCR #### [facility] [address] [place] [address] Dr. Shayne Roldan VITAMIN D 25 OHon 08-05-2022 VIT D 25-OH 38.9 ng/mL Normal [facility] Comment on above: Performed By: #### M G, RENAL, URIC #### [facility] [address] [place] [address] Dr. Shayne Roldan VIT D RANGES SEE BELOW Normal [facility] Comment on above: Result Comment: <20 ng/mL Vit D deficient 20 - <30 ng/mL Vit D insufficient 30 - 100 ng/mL Vit D sufficient >100 ng/mL Potential Toxicity Performed By: #### M G, RENAL, URIC #### [facility] [address] [place] [address] Dr. Shayne Roldna IMMUNOGLOBULINS IGA/IGM/IGG/ IGE QUANTITAon 07-12-2022 Immunoglobulin A, Qn, Serum 295 mg/dL Normal 87-352 [facility] Comment on above: Result Comment: Perf ormed at: CB Performed By: #### M G, RENAL, URIC #### [facility] [address] [place] [address] Dr. Shayne Roldan Immunoglobulin E, Total 32 IU/mL Normal 6-495 [facility] Comment on above: Result Comment: Perf ormed at: BN Performed By: #### M G, RENAL, URIC #### [facility] [address] [place] [address] Dr. Shayne Roldan Immunoglobulin G, Qn, Serum 729 mg/dL Normal 586-1602 [facility] Comment on above: Result Comment: Perf ormed at: CB Performed By: #### M G, RENAL, URIC #### [facility] [address] [address] [address] Shayne Roldan Immunoglobulin M, Qn, Serum 75 mg/dL Normal 26-217 [facility] Comment on above: Result Comment: Perf ormed at: CB Performed By: #### M G, RENAL, URIC #### [facility] [address] [address] [address] Shayne Roldan Abstracton 07-08-2022 Abstract [id number] ChampionYannickclarice Fan 1955 F Date Provider Department Center 07/08/2022 JOHANNA MEDINA [facility] Family History Problem Relation Age of Onset Heart failure Mother Heart disease Father Family Status - Relation Status Age at Mother Father Normal [facility] CBC AUTO DIFFon 07-05-2022 BASO # 0.1 103/ul Normal 0.0-0.1 [facility] Comment on above: Performed By: #### M G, RENAL, URIC #### [facility] [address] [address] [address] Shayne Roldan Basophils/100 WBC (Bld) 0.7 % Normal 0.2-2.0 [facility] Comment on above: Performed By: #### M G, RENAL, URIC #### [facility] [address] [place] [address] Dr. Shayne Roldan EO # 0.4 103/ul Normal 0.0-0.7 [facility] Comment on above: Performed By: #### M G, RENAL, URIC #### [facility] [address] [address] [address] Shayne Roldan Eosinophils/100 WBC (Bld) 4.4 % Normal 0.9-7.0 [facility] Comment on above: Performed By: #### M G, RENAL, URIC #### [facility] [address] [place] [address] Dr. Shayne Roldan Erythrocyte distribution width (RBC) [Ratio] 12.6 % Normal 11.0-15.0 [facility] Comment on above: Performed By: #### M G, RENAL, URIC #### [facility] [address] [address] [address] Shayne Roldan Hematocrit (Bld) [Volume fraction] 40.2 % Normal 36.0-48.0 [facility] Comment on above: Performed By: #### M G, RENAL, URIC #### [facility] [address] [place] [address] Dr. Shayne Roldan Hemoglobin (Bld) [Mass/Vol] 13.6 g/dL Normal 12.0-16.0 [facility] Comment on above: Performed By: #### M G, RENAL, URIC #### [facility] [address] [place] [address] Dr. Shayne Roldan IG # 0.07 10e3/ul Critically high 0.00-0.03 [facility] Comment on above: Performed By: #### M G, RENAL, URIC #### [facility] [address] [place] [address] Dr. Shayne Roldan IG % 0.8 % Critically high 0.0-0.5 [facility] Comment on above: Performed By: #### M G, RENAL, URIC #### [facility] [address] [place] [address] Dr. Shayne Roldan LYMPH # 2.3 103/ul Normal 1.2-3.8 [facility] Comment on above: Performed By: #### M G, RENAL, URIC #### [facility] [address] [place] [address] Dr. Shayne Roldan Lymphocytes/100 WBC (Bld) 24.7 % Normal 20.5-60.0 [facility] Comment on above: Performed By: #### M G, RENAL, URIC #### [facility] [address] [place] [address] Dr. Shayne Roldan MANUAL DIFF REQ NO Normal [facility] Comment on above: Performed By: #### M G, RENAL, URIC #### [facility] [address] [place] [address] Dr. Shayne Roldan MCH (RBC) [Entitic mass] 30.7 pg Normal 26.7-34.0 [facility] Comment on above: Performed By: #### M G, RENAL, URIC #### [facility] [address] [place] [address] Dr. Shayne Roldan MCHC (RBC) [Mass/Vol] 33.8 g/dL Normal 29.9-35.2 [facility] Comment on above: Performed By: #### M G, RENAL, URIC #### [facility] [address] [place] [address] Dr. Shayne Roldan MCV (RBC) [Entitic vol] 90.7 fL Normal 81.0-99.0 [facility] Comment on above: Performed By: #### M G, RENAL, URIC #### [facility] [address] [place] [address] Dr. Shayne Roldan MONO # 0.7 103/ul Normal 0.3-0.8 [facility] Comment on above: Performed By: #### M G, RENAL, URIC #### [facility] [address] [place] [address] Dr. Shayne Roldan Monocytes/100 WBC (Bld) 7.7 % Normal 1.7-12.0 [facility] Comment on above: Performed By: #### M G, RENAL, URIC #### [facility] [address] [place] [address] Dr. Shayne Roldan NEUT # 5.7 103/ul Normal 1.4-6.5 [facility] Comment on above: Performed By: #### M G, RENAL, URIC #### [facility] [address] [place] [address] Dr. Shayne Roldan Neutrophils/100 WBC (Bld) 61.7 % Normal 43.0-75.0 [facility] Comment on above: Performed By: #### M G, RENAL, URIC #### [facility] [address] [place] [address] Dr. Shayne Roldan Platelet mean volume (Bld) [Entitic vol] 8.8 fL Critically low 9.5-13.5 [facility] Comment on above: Performed By: #### M G, RENAL, URIC #### [facility] [address] [place] [address] Dr. Shayne Roldan PLT 279 103/ul Normal 150-450 [facility] Comment on above: Performed By: #### M G, RENAL, URIC #### [facility] [address] [address] [address] Shayne Roldan RBC 4.43 106/ul Normal 4.20-5.40 [facility] Comment on above: Performed By: #### M G, RENAL, URIC #### [facility] [address] [address] [address] Shayne Roldan WBC 9.1 103/ul Normal 4.0-11.0 [facility] Comment on above: Performed By: #### M G, RENAL, URIC #### [facility] [address] [address] [address] Shayne Roldan Covid-19 PCR ([facility])on SARS-CoV-2 (COVID-19) RNA KAYLEE+probe Ql (Unsp spec) Not detected Normal NOT DETECTED [facility] Comment on above: Result Comment: This test is not yet approved or cleared by the [place] FDA. When there are no FDA-approved or cleared tests available, and other criteria are met, FDA can make tests available under an emergency access mechanism called an Emergency Use Authorization (EUA). The EUA for this test is supported by the [place] of Health and Human Service's (HHS's) declaration [...] By: #### M G, RENAL, URIC #### [facility] [address] [address] [address] Shayne Roldan XR CHEST 2 Von [...] NARDA LONDONO Date: 2022-06-08 19:58 Normal [facility]on SARS-CoV-2 (COVID-19) RNA KAYLEE+probe Ql (Unsp spec) Not detected Normal NOT DETECTED [facility] Comment on above: Result Comment: This test is not yet approved or cleared by the [place] FDA. When there are no FDA-approved or cleared tests available, and other criteria are met, FDA can make tests available under an emergency access mechanism called an Emergency Use Authorization (EUA). The EUA for this test is supported by the [place] Supervisor of Health and Human Service's (HHS's) declaration [...] consistent with SARS-CoV-2. Performed By: #### [facility] #### [facility] [address] [place], [place] [address] Dr. Shayne Roldan DEXA AXIALon 03-01-2022 DEXA AXIAL [facility] Department of Radiology [address] [place] [id number] Patient Name: DIANA CHAMPION : 1955 Sex: F Age: Race: White Pt. Location: Patient Status: D Ordered Date: 02/24/2022 1:25:00 PM Completed Date: 03/01/2022 09:46 AM Requesting Provider: CINDA ANTONIO Attending Provider: Report Copy To: Signs & Symptoms: Z78.0 Asymptomatic menopausal state I10 History: [place] Comments: Exam: DEXA AXIAL DEXA AXIAL 03/01/2022 [...] characteristics. Electronically signed: Luzma Fernandez. Transcribed by: [email or web address], User Resident: Electronically Signed by: LUZMA FERNANDEZ @ 03/02/2022 01:07 PM Normal [facility] SCOLIOSIS 2 [facility] 02-24-2022 SCOLIOSIS 2 [facility] Department of Radiology [address] [place] [id number] Patient Name: DIANA CHAMPION : 1955 Sex: F Age: Race: White Pt. Location: Patient Status: D Ordered Date: 02/24/2022 1:25:00 PM Completed Date: 02/24/2022 01:44 PM Requesting Provider: CINDA ANTONIO Attending Provider: Report Copy To: Signs & Symptoms: M43.10 Spondylolisthesis, site unspecified I10 History: Comments: Views (X-RAY, SCOLIOSIS): PA, Lateral evaluate Exam: SCOLIOSIS 2 [facility] Scoliosis. Worsening pain. Frontal and lateral thoracolumbar spine IMPRESSION: 1. Diffuse disc disease and facet arthritis. Right convex mid lumbar curvature measuring 16 degrees. Interbody fusion hardware lower lumbar spine. Electronically signed: Hugo Lynn. Transcribed by: [email or web address], User Resident: Electronically Signed by: HUGO LYNN @ 02/26/2022 11:07 AM Normal [facility] Comment on above: Order Comment: Views (X-RAY, SCOLIOSIS): PA, Lateral evaluate CT LUMBAR SPINE W CONTRASTon 01-24-2022 CT LUMBAR SPINE W CONTRAST [facility] Department of Radiology [address] [place] [id number] Patient Name: DIANA CHAMPION : 1955 [...] L1-2. Electronically signed: Gaurang Lawrence. Transcribed by: [email or web address], User Resident: Electronically Signed by: GAURANG Sudeep LAWRENCE @ 01/26/2022 08:58 AM Normal [facility] Comment on above: Order Comment: , CT MYELOGRAM>PAPER WORK IN CHART LUMBAR MYELOGRAMon 2 LUMBAR MYELOGRAM [facility] Department of Radiology [address] [place] [id number] Patient Name: DIANA CHAMPION : 1955 Sex: F Age: Race: White Pt. Location: Patient Status: O Ordered Date: 01/09/2022 9:00:00 AM Completed Date: 01/24/2022 02:37 PM Requesting Provider: JOO LINN Attending Provider: JOO LINN Report Copy To: UNKNOWN, PHYSICIAN Signs & Symptoms: M54.16 Radiculopathy, lumbar region I10 History: Jessica Is patient on thinners? 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 Consent was obtained. Timeout: [place] protocol timeout verification performed. PROCEDURE: Estimated blood [...] report. Electronically signed: Greg Marlow. Transcribed by: [email or web address], User Resident: DEBBIE JI Electronically Signed by: GREG MARLOW @ 01/24/2022 04:07 PM I personally read this/these film(s) with this resident Normal [facility] Comment on above: Order Comment: , CT MYELOGRAM> PAPER WORK SCANNED IN CHART , CT MYELOGRAM> PAPER WORK SCANNED IN CHART , , , Ordering Provider - JOO LINN MD , HIP LEFT 1 OR 2 VWS WITH PEL VISon 01-06-2022 HIP LEFT 1 OR 2 VWS WITH PELVIS [facility] Department of Radiology [address] [place] [id number] Patient Name: DIANA CHAMPION : 1955 Sex: F Age: Race: White Pt. Location: Patient Status: D Ordered Date: 12/21/2021 10:45:00 AM Completed Date: 01/06/2022 01:24 PM Requesting Provider: JOO LINN Attending Provider: JOO LINN Report Copy To: Signs & Symptoms: Z96.642 Presence of left artificial hip joint I10 History: [place] Comments: Evaluate Exam: HIP LEFT 1 OR 2 VWS WITH PELVIS HIP LEFT 1 OR 2 VWS WITH PELVIS HISTORY: Hip replacement, follow-up. COMPARISON: None. IMPRESSION: 1. Redemonstrated left hip prosthesis without visible complication. 2. Advanced right hip arthritis without significant change with advanced joint space narrowing. Unchanged lumbosacral fusion hardware. Electronically signed: Joe Matthew. Transcribed by: [email or web address], User Resident: Electronically Signed by: JOE MATTHEW @ 01/09/2022 04:45 PM Normal [facility] Comment on above: Order Comment: Evalu ate Vital Signs Date Time Vital Sign Value Performing Clinician Facility 08-17-2023 09:20-0400 Body height 165.1 cm [facility] Other [facility] Other 08-17-2023 09:20-0400 Body mass index (BMI) [Ratio] 38.1 kg/m2 [facility] Other [facility] Other 08-17-2023 09:20-0400 Body temperature 98.8 [degF] [facility] Other [facility] Other 08-17-2023 09:20-0400 Body weight 103.87 kg [facility] Other [facility] Other 08-17-2023 09:20-0400 Diastolic blood pressure 85 mm[Hg] [facility] Other [facility] Other 08-17-2023 09:20-0400 Respiratory rate 18 /min [facility] Other [facility] Other 08-17-2023 09:20-0400 SaO2% (BldA) [Mass fraction] 94 % [facility] Other [facility] Other 08-17-2023 09:20-0400 Systolic blood pressure 151 mm[Hg] [facility] Other [facility] Other 03-02-2023 10:00-0400 Body height 165.1 cm [facility] Other [facility] Other 03-02-2023 10:00-0400 Body mass index (BMI) [Ratio] 37.29 kg/m2 [facility] Other [facility] Other 03-02-2023 10:00-0400 Body temperature 98.9 [degF] [facility] Other [facility] Other 03-02-2023 10:00-0400 Body weight 101.65 kg [facility] Other [facility] Other 03-02-2023 10:00-0400 Diastolic blood pressure 76 mm[Hg] [facility] Other [facility] Other 03-02-2023 10:00-0400 Respiratory rate 20 /min [facility] Other [facility] Other 03-02-2023 10:00-0400 SaO2% (BldA) [Mass fraction] 96 % [facility] Other [facility] Other 03-02-2023 10:00-0400 Systolic blood pressure 136 mm[Hg] [facility] Other [facility] Other 12-08-2022 09:30-0500 Diastolic blood pressure 59 mm[Hg] MD Shaikh Ohara Work Phone: [facility] 12-08-2022 09:30-0500 Heart rate 55 /min MD Shaikh Ohara Work Phone: [facility] 12-08-2022 09:30-0500 Respiratory rate 16 /min MD Shaikh Ohara Work Phone: [facility] 12-08-2022 09:30-0500 SaO2% (BldA) [Mass fraction] 96 % MD Shaikh Ohara Work Phone: [facility] - [place] 12-08-2022 09:30-0500 Systolic blood pressure 112 mm[Hg] MD Shaikh Ohara Work Phone: [facility] [place] 12-08-2022 06:54-0500 Body height 162.56 cm MD Shaikh Ohara Work Phone: [facility] [place] 12-08-2022 06:54-0500 Body temperature 98.2 [degF] MD Shaikh Ohara Work Phone: [facility] [place] 12-08-2022 06:54-0500 Body weight 104.32 kg MD Shaikh Ohara Work Phone: [facility] [place] 08-09-2022 11:00-0400 Body height 165.1 cm Herberth Joana Other E96 Other 08-09-2022 11:00-0400 Body mass index (BMI) [Ratio] 37.87 kg/m2 Herberth Joana Other E96 Other 08-09-2022 11:00-0400 Body temperature 97.2 [degF] Herberth Joana Other E96 Other 08-09-2022 11:00-0400 Body weight 103.24 kg Herberth Joana Other E96 Other 08-09-2022 11:00-0400 Diastolic blood pressure 88 mm[Hg] Herberth Joana Other E96 Other 08-09-2022 11:00-0400 Respiratory rate 20 /min Herberth Joana Other E96 Other 08-09-2022 11:00-0400 SaO2% (BldA) [Mass fraction] 95 % Herberth Joana Other E96 Other 08-09-2022 11:00-0400 Systolic blood pressure 133 mm[Hg] Herberth Joana Other E96 Other 11-17-2021 10:40-0500 Body height 165.1 cm Herberth Joana Other E96 Other 11-17-2021 10:40-0500 Body mass index (BMI) [Ratio] 37.97 kg/m2 Herberth Joana Other E96 Other 11-17-2021 10:40-0500 Body temperature 97.8 [degF] Herberth Joana Other E96 Other 11-17-2021 10:40-0500 Body weight 103.51 kg Herberth Joana Other E96 Other 11-17-2021 10:40-0500 Diastolic blood pressure 70 mm[Hg] Herberth Joana Other E96 Other 11-17-2021 10:40-0500 Respiratory rate 18 /min Herberth Joana Other E96 Other 11-17-2021 10:40-0500 SaO2% (BldA) [Mass fraction] 94 % Herberth Joana Other E96 Other 11-17-2021 10:40-0500 Systolic blood pressure 130 mm[Hg] Herberth Bernard Other E96 Other 08-30-2021 13:15-0400 Body height 165.1 cm Rena Ginty Other E96 Other 08-30-2021 13:15-0400 Body mass index (BMI) [Ratio] 36.61 kg/m2 Rena Ginty Other E96 Other 08-30-2021 13:15-0400 Body temperature 98.7 [degF] Rena Ginty Other E96 Other 08-30-2021 13:15-0400 Body weight 99.79 kg Rena Ginty Other E96 Other 08-30-2021 13:15-0400 SaO2% (BldA) [Mass fraction] 90 % Rena Ginty Other E96 Other Encounters Encounter Date Encounter Type Care Provider Facility Start: 12-28-2023 End: 12-28-2023 ambulatory SAUNDERS FAWWAD Not Available Start: 12-18-2023 End: 12-19-2023 ambulatory Jayshree Vargas MD [facility] Start: 12-05-2023 End: 12-05-2023 ambulatory SAUNDERS FAWWAD Not Available Start: 11-13-2023 End: 11-14-2023 ambulatory Jayshree Vargas MD [facility] Start: 11-02-2023 End: 11-02-2023 ambulatory SAUNDERS FAWWAD Not Available Start: 10-09-2023 End: 10-10-2023 ambulatory Jayshree Vargas MD Facility:[facility] [place] Start: 10-04-2023 End: 10-04-2023 ambulatory SHAIKH EDUARDAWAD Not Available Start: 09-07-2023 End: 09-07-2023 ambulatory Herberth Joana Other E96 Other Start: 09-07-2023 Telephone encounter Herberth Joana [facility] Start: 08-28-2023 End: 08-28-2023 ambulatory Herberth Joana Other E96 Other Start: 08-28-2023 Telephone encounter Herberth Joana [facility] Start: 08-21-2023 End: 08-22-2023 ambulatory Jayshree Vargas MD Facility: [place] Start: 08-17-2023 End: 08-17-2023 ambulatory Herberth Joana Other E96 Other Start: 08-17-2023 Office outpatient visit 25 minutes Herberth Joana [facility] [place] Start: 05-08-2023 End: 05-08-[facility] [facility] Start: 04-04-2023 End: 04-04-2023 ambulatory SHAIKH Dimitry OHARA Facility:[facility] Start: 03-24-2023 End: 03-25-[address] STEPH GRANADOS Facility:[facility] Start: 03-23-2023 ambulatory JOO LINN [facility] Start: 03-02-2023 End: 03-02-2023 ambulatory Herberth Joana Other E96 Other Start: 03-02-2023 Office outpatient visit 25 minutes Herberth Joana [facility] Start: 02-25-2023 End: 02-26-2023 ambulatory HERBERTH JOANA Facility:[facility] Start: 02-22-2023 End: 02-23-2023 ambulatory BO Rendon Facility:[facility] Start: 12-15-2022 End: 12-16-[address] JACK HALL . Facility:[facility] Start: 12-08-2022 End: 12-08-2022 ambulatory Shaikh Lev Facility:[facility] [place] Start: 12-08-2022 End: 12-08-2022 Admission to same day surgery center MD Shaikh Ohara Work Phone: [facility] Work Phone: Start: 12-08-2022 End: 12-08-2022 ambulatory MD Shaikh Ohara Work Phone: [facility] Work Phone: Start: 11-11-2022 End: 11-11-[address] JCAK HALL . Facility:[facility] Start: 11-09-2022 End: 11-09-2022 ambulatory Azkatherine Gonzalezs Other E96 Other Start: 11-09-2022 Telephone encounter Azkatherine Gonzalezs [facility] Start: 08-19-2022 End: 08-20-2022 ambulatory HERBERTH JOANA Facility:[facility] Start: 08-09-2022 End: 08-09-2022 ambulatory Herberth Joana Other E96 Other Start: 08-09-2022 Office outpatient visit 10 minutes Herberth Joana [facility] Start: 08-09-2022 Telephone encounter Herberth Joana [facility] Start: 08-05-2022 Telephone encounter Herberth Joana [facility] Start: 08-05-2022 End: 08-06-2022 ambulatory HERBERTH JOANA Hecker [facility] Other Start: 07-08-2022 End: 07-08-2022 ambulatory Gato Domingo Other E96 Other Start: 07-08-2022 Telephone encounter Gato Cesar [facility] Start: 07-05-2022 End: 07-06-2022 ambulatory SHAIKH Dimitry OHARA Facility:[facility] Start: 06-08-2022 End: 06-09-2022 ambulatory SAUNDERS H FAJavonWAD Facility:[facility] Start: 06-07-2022 End: 06-07-2022 ambulatory SAUNDERS H FAJavonWAD Facility:[facility] Start: 01-24-2022 End: 01-25-2022 ambulatory PHYSICIAN UNKNOWN Facility:[facility] Start: 11-17-2021 End: 11-17-2021 ambulatory Herberth Joana Other E96 Other Start: 11-17-2021 Office outpatient visit 15 minutes Herberth Joana [facility] Start: 08-30-2021 Office outpatient visit 15 minutes Rena Vannessa [facility] Start: 09-11-2020 End: 09-11-2020 Chart abstracting Miguelito Buck Work Phone: Hematology/Oncology Start: 09-11-2020 End: 09-11-2020 Patient encounter procedure External Provider [facility] Start: 09-11-2020 Results Only External Provider [facility] Start: 09-30-2019 End: 09-30-2019 Patient encounter procedure [facility] [place] Start: 07-07-2017 End: 07-07-2017 Admission to day surgery [facility] Start: 05-24-2004 Evaluation and management of inpatient [facility] [place] Start: 04-26-2004 Evaluation and management of inpatient [facility] [place] Procedures Date Procedure Procedure Detail Performing Clinician Start: 12-08-2022 Colonoscopy MD Shaikh Ohara Work Phone: Start: 09-11-2020 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 [employer] al Provider Start: 09-11-2020 EXTERNAL LAB External P rovider Start: 09-11-2020 EXTERNAL PROCEDURE Exte rnal Provider Start: 09-30-2019 Ultrasonography of b ilateral kidneys Steph Collier Plan of Treatment Date Care Activity Detail Author Start: 12-08-2022 [facility] [place] Start: 07-07-2020 Influenza vaccination INFLUENZA (#1) [facility] Start: 2006 SHINGRIX VACCINE (1 of 2) SHINGRIX VACCINE (1 of 2) [facility] Start: 2006 Tuberculosis screening COLORECTAL CANCER SCREENING,SEE MODIFIER [facility] Start: 2001 DIABETES SCREEN DIABETES SCREEN [facility] Start: 2001 LIPID SCREEN LIPID SCREEN [facility] Start: 1996 Mammography MAMMOGRAM [facility] Start: 1986 HPV TESTING HPV TESTING [facility] Start: 1977 PAP TESTING PAP TESTING [facility] Start: 1975 Urine microalbumin profile DTAP,TDAP,TD (1 - Tdap) [facility] Start: 1974 HEPATITIS C SCREENING HEPATITIS C SCREENING [facility] Start: 1974 HIV SCREENING HIV SCREENING [facility] Patient Education Colon Polypect shahram Hemorrhoids (DC) Diverticulosis (DC) [facility] Immunization Date Immunization Notes Care Provider Henrietta charles 07-18-2018 Depo-Medrol 40 mg Rena Gint y Other E96 Other 01-31-2018 Depo-Medrol 40 mg Rena Gint y Other E96 Other 08-09-2017 influenza, seasonal, injectable, preservative free Rena Ginty Other E96 Other Payers Date Payer Category Payer Unknown 2022 Self-pay [id number] 2021 Medicare [id number] 2020 Medicaid [id number] 2019 Medicaid MEDICAID [facility] MEDICAID [id number] 2019-Present Medicaid [id number] 2016 Medicare MEDICARE MEDICAR E A AND B [id number] 2016-Present [place] [id number] 1959 Unknown [id number] 1956 Unknown [id number] 2.16.840.1.870815.3.579.2.647 1956 Unknown [id number] 2.16.840.1.237027.3.579.2.593 1956 Unknown [id number] 2.16.840.1.358117.3.579.2.593 1956 Unknown [id number] 2.16.840.1.579661.3.579.2.593 1956 Unknown [id number] 2.16.840.1.885745.3.579.2.593 1956 Unknown [id number] 2.16.840.1.577657.3.579.2.593 1956 Unknown [id number] 2.16.840.1.392917.3.579.2.593 1956 Unknown [id number] 2.16.840.1.782337.3.579.2.593 1956 Unknown [id number] 2.16.840.1.377309.3.579.2.593 1956 Unknown [id number] 2.16.840.1.206734.3.579.2.593 1956 Unknown [id number] 2.16.840.1.080021.3.579.2.593 1956 Unknown [id number] 2.16.840.1.057503.3.579.2.593 1956 Unknown [id number] 2.16.840.1.711798.3.579.2.196 1956 Unknown [id number] 2.16.840.1.003930.3.579.2.196 1956 Unknown [id number] 2.16.840.1.824015.3.579.2.196 1956 Unknown [id number] 2.16.840.1.710240.3.579.2.196 1956 Unknown [id number] 2.16.840.1.108391.3.579.2.1259 1956 Unknown [id number] 2.16.840.1.242239.3.579.2.1259 1956 Unknown [id number] 2.16.840.1.606521.3.579.2.1259 1956 Unknown [id number] 2.16.840.1.642617.3.579.2.1259 Medicare [id number] Unknown HCAP/HFA/FAP Active [id number] Unknown [id number] 2.16.840.1.048501.3.579.2.531 Social History Date Type Detail Facility Tobacco smoking stat us [facility] Unknown if ever smoked [facility] Start: 1955 Sex Assigned At Female F [facility] Start: 09-11-2020 End: 12-08-2022 Tobacco smoking status LAIS Never smoker [facility] [place] Start: 09-11-2020 Tobacco use and exposure Never used [facility] Start: 09-11-2020 Alcohol intake Lifetime non-d my (finding) [facility] Start: 09-11-2020 History SDOH Alcohol Frequency 1 [facility] Assigned [facility] E96 Other Goals Date Patient Goal Desired Activity /State Clinical Notes 08-30-2021 to 09-07-2023 Note Date & Type Note Facility 09-07-2023 Evaluation note Encounter Date Diagnosis Assessment Notes Sep, Hypomagnesemia (ICD-10 - E83.42) E[facility] Other 10-23-2023 Evaluation note* Encounter Date Diagnosis Assessment Notes Treatment Notes Treatment Clinical Notes Aug, Nico garsia kid I-IV (ICD-10 - I12.9) E[facility] Other 10-12-2023 Evaluation note* Encounter Date Diagnosis Assessment Notes Treatment Notes Treatment Clinical Notes Aug, Nico garsia kid I-IV (ICD-10 - I12.9) Blood pressure [...] PPI induced GI losses. Continue oral Magnesium [facility] Cardiology Clinic Note Chief Complaint: Patient here for 1 year follow up CAD and hypertension. She was recently discharged from [facility] for Covid-19. She says hydrochlorothiazide was stopped [...] breath since then. She has seen her hotel service supervisor. Her chest pain is noncardiac. She has no other cardiac complaints. Cardiology ROS: Review of Systems Cardiovascular: Positive for chest pain and dyspnea on exertion. Respiratory: Positive for wheezing. Musculoskeletal: Positive for arthritis, back pain, joint pain and myalgias. Neurological: Positive for light-headedness. All other systems reviewed and are negative. Past Medical History She has a past medical history of Cancer ([facility]) and Hypertension. Surgical History She has a [...] 325 mg by mouth., Disp: , Rfl: pdodmlztsrc-pysanjaac-abillmht 100-62.5-25 mcg blister with device, , Disp: [...] no increased eff (more content not included)...[facility]05-19-2023 NotePROCEDURE: XR HIP RT 2 3V W PELVIS HISTORY: Pain in right hip joint , chronic COMPARISON: XR L-spine 02/26/2019, XR left hip with pelvis 03/11/2017 FINDINGS: BONES:Complete loss of the right hip joint space with mobe-wk-gojs articulation, subchondral sclerosis and cysts, and large periarticular degenerative osteophytes. No fracture or dislocation. Left hip replacement. Mechanical fusion of L5-S1 and moderate dextroscoliosis of lumbar spine. SOFT TISSUES:No visible soft tissue swelling. EFFUSION:None visible. OTHER: Negative. IMPRESSION: 1. Marked degenerative joint disease of the right hip; progressed since prior study. 2. Stable surgical changes. Electronically authenticated by: STEPH GRANADOS Date: 2023-03-24 12:55[facility]05-18-2023 NoteSubjective 03/23/23 Diana Champion is a [...] LIGATION Past Medical History: Diagnosis Date Cancer ([facility]) Hypertension Objective General: Body mass [...] from the patient's PCP as well as hotel service supervisor for a right anterior total hip arthroplasty. [...] be an additional personal documentation from me.[facility]04-27-2023 Evaluation note* Encounter Date Diagnosis Assessment [...] PPI induced GI losses. Continue oral Magnesium E96 Other 02-02-2023 [facility] [place]* Encounter Date Diagnosis Assessment Notes Treatment Notes Treatment Clinical Notes Nov, Hypokalemia (ICD-10 - E87.6) Nov, Hypomagnesemia (ICD-10 - E83.42) E96 Other 10-04-2022 Evaluation note* Encounter Date Diagnosis [...] office does not accept her new insurance. E96 Other 09-02-2022 Evaluation note* Encounter Date Diagnosis Assessment Notes Treatment Notes Treatment Clinical Notes Jul, History of colon cancer (ICD-10 - Z85.038) E96 Other 01-12-2022 Evaluation note* Encounter Date Diagnosis Assessment Notes Treatment Notes Treatment Clinical Notes Nov, Nico lopez w cr kid I-IV (ICD-10 [...] potassium wasting. I have prescribed oral potassium. E96 Other 10-25-2021 Evaluation note* Encounter Date Diagnosis [...] Patient care instructions given in writting by [facility] Home document E96 Other Evaluation noteNo InformationNort OmniPV Other Evaluation note* Diagnosis Onset Date Resolution Status History of colon cancer [facility] Work Phone: [facility] Narrative - Reported* Type Description Date [...] back Sx 2003 Surgical History tubal ligation 1986 Surgical History tubal ligation 1988 Surgical History foot sx 09/2015 Surgical History left total hip arthoplasty 07/26 16 Surgical History (R) TKA - DR SERRATO 10/18/201 8 Surgical History 1 INCH OF BONE OFF OF RIGHT BALTA T 2014 Surgical History LEFT HIP RESVISION 03/2020 Hospitalization History see above 2003,198 7 Hospitalization History 1 week during chemo 2003 Hospitalization History ISSUE WITH HIP C OMING OUT AND NEEDING TO PUT IT BACK IN 08/2019 Hospitalization History HIP REVISION 03/2020 E96 Other [facility] Narrative - Reported* Type Description Date [...] back Sx 2003 Surgical History tubal ligation 1986 Surgical History [...] Hospitalization History COVID X 2 WEEKS 04/2023 E96 Other Hospital Discharge instructions Additional Instructions DISCHARGE [...] if you have any problems. -Office number [phone] Work Phone: Advance Directives No Advanced [...] or prosecute any alcohol or drug abuse patient.[facility] Hospital[facility] the event this information is protected by the Federal Confidentiality of Alcohol and Drug Abuse Patient Records regulations: The Federal rules restrict any use of the information to criminally investigate or prosecute any alcohol or drug abuse patient.[facility] Hospital[facility] the event this information is protected by the Federal Confidentiality of Alcohol and Drug Abuse Patient Records regulations: The Federal rules restrict any use of the information to criminally investigate or prosecute any alcohol or drug abuse patient.[facility] HospitalIn the event this information is protected by the Federal Confidentiality of Alcohol and Drug Abuse Patient Records regulations: The Federal rules restrict any use of the information to criminally investigate or prosecute any alcohol or drug abuse patient.[facility] INFORMATION SOURCE (unrecogn ized section and content) DATE CREATED AUTHOR 03/03/2022 [facility] DATE CREATED AUTHOR AUTHOR'S ORGANIZ ATION 04/17/2023 [facility] DATE CREATED AUTHOR AUTHOR'S ORGANIZ ATION 05/08/2023 [facility] DATE CREATED AUTHOR AUTHOR'S ORGANIZ ATION 06/07/2023 [facility] DATE CREATED AUTHOR AUTHOR'S ORGANIZ ATION 12/24/2023 [facility] DATE CREATED AUTHOR AUTHOR'S ORGANIZ ATION 01/05/2024 [facility] EPIC REASON FOR VISIT (unrecogniz [...] BE BASED ON THE PRIMARY CLINICAL RECORDS. [employer] [facility]. provides no warranty or guarantee of the accuracy or completeness of information in this document.
--- NOTE | 2024-01-18 08:53 | PM.CN ---
Consult Note: HPI Data of Consult Patient: known to practice within the last 3 years Requesting Physician: Violet Saucedo NP Primary Care Provider: Shaikh Lev MD Consult Narrative Reason for consult: f/u Narrative: Diana Champion a pleasant 68 year old female presents for evaluation and management of low back pain. Today rating pain 10/10 in low back and bilateral hips. Recently underwent bilateral L3-4 L4-5 facet thermal RFA with no improvement. Patient has noticed increase in BLE weakness. Reports constant low back pain unrelieved by rest and medications. PT has failed to benefit from PT and conservative measures in the past, hx of L5-S1 fusion. Patient needs a right ELZA but is unable to do that at this time. cc:: CC: Violet Saucedo NP Review of Systems ROS Status of ROS 10 or more systems reviewed and unremarkable except as noted in history and below Musculoskeletal Reports: back pain and joint pain PFSH [facility] Medical History (Updated 01/18/24 @ 09:10 by Violet Saucedo NP) CAD (coronary artery disease) ?I25.10 - Atherosclerotic heart disease of [place] coronary artery without angina pectoris (ICD-10) Chronic heart failure with preserved ejection fraction (HFpEF) ?I50.32 - Chronic diastolic (congestive) heart failure (ICD-10) Hypertension ?I10 - Essential (primary) hypertension (ICD-10) Myofascial pain ?M79.18 - Myalgia, other site (ICD-10) Greater trochanteric bursitis ?M70.60 - Trochanteric bursitis, unspecified hip (ICD-10) Osteoarthritis of right hip ?M16.11 - Unilateral primary osteoarthritis, right hip (ICD-10) Lumbar spondylosis ?M47.816 - Spondylosis without myelopathy or radiculopathy, lumbar region (ICD-10) Lumbar postlaminectomy syndrome ?M96.1 - Postlaminectomy syndrome, not elsewhere classified (ICD-10) Lumbar stenosis with neurogenic claudication ?M48.062 - Spinal stenosis, lumbar region with neurogenic claudication (ICD-10) Depression ?F32.A - Depression, unspecified (ICD-10) Chronic low back pain ?M54.50 - Low back pain, unspecified (ICD-10) ?G89.29 - Other chronic pain (ICD-10) Hypoxia ?R09.02 - Hypoxemia (ICD-10) Heart murmur ?R01.1 - Cardiac murmur, unspecified (ICD-10) Chronic obstructive pulmonary disease ?J44.9 - Chronic obstructive pulmonary disease, unspecified (ICD-10) Asthma ?J45.909 - Unspecified asthma, uncomplicated (ICD-10) Surgical History (Updated 11/26/23 @ 09:40 by Tapan Barboza MD) History of lumbar fusion ?Z98.1 - Arthrodesis status (ICD-10) Social History Smoking status: Never smoker Highest level of school completed/degree received: Associate degree: occupational, technical, vocational program Do you think of yourself as: straight/heterosexual Gender Identity: female Meds Home Medications and Allergies Home Medications Medication Instructions Recorded Confirmed Type albuterol sulfate 90 mcg/actuation 2 puff inhalation Q4H PRN 04/10/23 12/18/23 History aerosol inhaler shortness of breath or wheezing fluticasone fur. 200 mcg-umeclid 1 inh inhalation Q24H COPD 04/10/23 12/18/23 History 62.5 mcg-vilant 25 mcg inhalat.powder (Trelegy Ellipta) magnesium oxide 400 mg (241.3 mg 400 mg PO DAILY 04/10/23 12/18/23 History magnesium) tablet omeprazole 20 mg capsule,delayed 20 mg PO BID 04/10/23 12/18/23 History release ipratropium 0.5 mg-albuterol 3 mg 3 ml inhalation Q6H PRN shortness 04/22/23 12/18/23 Rx (2.5 mg base)/3 mL nebulization of breath or wheezing #90 mL soln losartan 50 mg tablet (Cozaar) 50 mg PO BID 08/21/23 12/18/23 History alendronate 35 mg tablet 35 mg PO .weekly 09/14/23 12/18/23 History montelukast 10 mg tablet 10 mg PO DAILY 09/14/23 12/18/23 History pramipexole 0.25 mg tablet 0.25 mg PO QPM 09/14/23 12/18/23 History (Mirapex) amlodipine 5 mg tablet 5 mg PO QDAY 11/25/23 12/18/23 History cholecalciferol (vitamin D3) 25 25 mcg PO QDAY 11/25/23 12/18/23 History mcg (1,000 unit) tablet paroxetine HCl 30 mg tablet 30 mg PO QDAY 11/25/23 12/18/23 History pregabalin 75 mg capsule 75 mg PO BID 11/25/23 12/18/23 History sodium chloride 0.9 % for 3 ml inhalation Q8H 11/25/23 12/18/23 History nebulization solifenacin 10 mg tablet 10 mg PO QDAY 11/25/23 12/18/23 History trazodone 100 mg tablet 100 mg PO .qhs 11/25/23 12/18/23 History amoxicillin 500 mg-potassium 1 tab PO Q12H 7 days #14 tabs 12/02/23 Rx clavulanate 125 mg tablet (Augmentin) guaifenesin 600 mg tablet, 600 mg PO BID 10 days #20 tabs 12/02/23 Rx extended release 12 hr (Mucus Relief ER) prednisone 10 mg tablet 10 mg PO DAILY 15 days #35 tabs 12/02/23 12/18/23 Rx Allergies Allergy/AdvReac Type Severity Reaction Status Date / Time No Known Drug Allergies Allergy Verified 12/18/23 07:25 Exam Constitutional Documenting provider has reviewed patient's vital signs: yes Common normals: no apparent distress, oriented x3, healthy appearing, alert and well nourished General appearance: cooperative HENOR Common normals: normocephalic, hearing grossly normal bilaterally and moist oral mucous membranes Head and scalp: normocephalic Eye Common normals: PERRL Pupil: PERRL Neck & C-Spine Common normals: full ROM General: normal visual inspection Chest Common normals: inspection of chest normal Respiratory Common normals: normal respiratory effort, no retractions and no use of accessory muscles Back & Pelvis Lumbar spine/lower back: ROM limited, pain with ROM and straight leg raise positive left Other: decreased sensation following left L4-5 dermatomal pattern weakness in BLE 4/5, pt reports worsening of low back pain and weakness of BLE with standing and walking. Extremity Right lower extremity: hip joint Other: pain with internal and external rotation. Weakness to BLE 4/5 strength Neuro Common normals: oriented x3, CN's II-XII intact bilaterally, moves all extremities, no focal motor deficits, no sensory deficits noted and deep tendon reflexes 2+ bilaterally Sensorium/orientation: alert Gait (neuro): assistive device used walker Motor exam: no movement abnormalities noted and strength abnormal Psych Common normals: mental status grossly normal, thought process normal, cooperative, affect normal, speech normal and activity/motor behavior normal Speech: normal speech Thought process: normal thought process Results Additional Findings Additional findings: If on a controlled substance or opioids, I have checked an [place] report on this patient and there are no aberrancies noted in the prescribing history.??If on a controlled substance or opioid a drug screen was completed and reviewed within the last year, and if there has not been a drug screen completed we ordered one today to monitor higher risk, state monitored pain medication use. As part of providing excellent, safe, comprehensive care, the following was completed at our patient's visit: 1. A medication reconciliation and review to ensure accurate knowledge of current/active medications, including asking our patients to inform us about any [id number] medications or herbal remedies/nutritional supplements/alternative remedies. 2. A review to specifically ensure our patients have had annual screening for screening for depression, screening for tobacco use, and screening for unhealthy alcohol use. For concerning screenings had a discussion with the patient, provided patient education, and recommended follow-up with primary care provider when appropriate. If patient noted with a risk of falling, they received education on strength, gait, and balance training to prevent future risk of falling. Assessment and Plan Assessment and Plan (1) Lumbar stenosis with neurogenic claudication: (2) Lumbar radiculopathy: (3) Lumbar spondylosis: (4) Chronic low back pain: Qualifiers: Back pain laterality: midline Sciatica presence: without sciatica Qualified Code(s): M54.50 - Low back pain, unspecified; G89.29 - Other chronic pain (5) Failed back syndrome: (6) History of lumbar fusion: (7) Myofascial pain: (8) Osteoarthritis of right hip: Qualifiers: Osteoarthritis type: primary Qualified Code(s): M16.11 - Unilateral primary osteoarthritis, right hip (9) Encounter for long-term opiate analgesic use: Assessment and Plan: patient found benefit to tylenol #3 TID PRN but does not want to be on opioids long-term Plan bilateral L3-4 TFESI followed by bilateral L4-5 TFESI for lumbar stenosis with NC and lumbar radiculopathy continue cyclobenzaprine 5mg BID PRN for myofascial pain continue current medications, tolerating well without side effects. f/u 2 weeks after completion of injections
== END 2024-01-18 08:38 | disposition home or self-care (01) ==
LOC: PM 08:37
PROVIDERS: PCP Internal Medicine; Visit Provider Nurse Practitioner
DX: M48.062 Spinal stenosis, lumbar region with neurogenic claudication (principal); M54.16 Radiculopathy, lumbar region; M47.816 Spondylosis without myelopathy or radiculopathy, lumbar region; M54.50 Low back pain, unspecified; M89.29 Other disorders of bone development and growth, multiple sites; M16.11 Unilateral primary osteoarthritis, right hip
CPT/HCPCS: G0463

== ENCOUNTER 2024-01-21 11:55 | Emergency (ER) | payer OTHER, SELFPAY ==
[2024-01-21 11:58] VITALS: BP 175/87; PULSE 74; RESP 18; TEMP 36.5; O2SAT 94; BMI 39.5
--- NOTE | 2024-01-21 12:18 | ED.BACK1 ---
HPI - Back Pain/Injury General Chief Complaint: Back Pain/Injury Stated Complaint: BACK PAIN Time Seen by Provider: 01/21/24 12:12 Source: patient Mode of arrival: walk-in Limitations: no limitations History of Present Illness HPI Narrative: 68-year-old female presents for low back pain. She has a history of chronic back pain issues and is in pain management. She had surgery years ago and is going to be having some steroid injections and is just waiting for insurance approval. No injury or radiation. No dysuria or hematuria and the pain is moderate to severe. She is taking Tylenol 3 at home. Related Data Home Medications Medication Instructions Recorded Confirmed albuterol sulfate 90 mcg/actuation 2 puff inhalation Q4H PRN 04/10/23 12/18/23 aerosol inhaler shortness of breath or wheezing fluticasone fur. 200 mcg-umeclid 1 inh inhalation Q24H COPD 04/10/23 12/18/23 62.5 mcg-vilant 25 mcg inhalat.powder (Trelegy Ellipta) magnesium oxide 400 mg (241.3 mg 400 mg PO DAILY 04/10/23 12/18/23 magnesium) tablet omeprazole 20 mg capsule,delayed 20 mg PO BID 04/10/23 12/18/23 release losartan 50 mg tablet (Cozaar) 50 mg PO BID 08/21/23 12/18/23 alendronate 35 mg tablet 35 mg PO .weekly 09/14/23 12/18/23 montelukast 10 mg tablet 10 mg PO DAILY 09/14/23 12/18/23 pramipexole 0.25 mg tablet 0.25 mg PO QPM 09/14/23 12/18/23 (Mirapex) amlodipine 5 mg tablet 5 mg PO QDAY 11/25/23 12/18/23 cholecalciferol (vitamin D3) 25 25 mcg PO QDAY 11/25/23 12/18/23 mcg (1,000 unit) tablet paroxetine HCl 30 mg tablet 30 mg PO QDAY 11/25/23 12/18/23 pregabalin 75 mg capsule 75 mg PO BID 11/25/23 12/18/23 sodium chloride 0.9 % for 3 ml inhalation Q8H 11/25/23 12/18/23 nebulization solifenacin 10 mg tablet 10 mg PO QDAY 11/25/23 12/18/23 trazodone 100 mg tablet 100 mg PO .qhs 11/25/23 12/18/23 Previous Rx's Medication Instructions Recorded ipratropium 0.5 mg-albuterol 3 mg 3 ml inhalation Q6H PRN shortness 04/22/23 (2.5 mg base)/3 mL nebulization of breath or wheezing #90 mL soln amoxicillin 500 mg-potassium 1 tab PO Q12H 7 days #14 tabs 12/02/23 clavulanate 125 mg tablet (Augmentin) guaifenesin 600 mg tablet, 600 mg PO BID 10 days #20 tabs 12/02/23 extended release 12 hr (Mucus Relief ER) prednisone 10 mg tablet 10 mg PO DAILY 15 days #35 tabs 12/02/23 Allergies Allergy/AdvReac Type Severity Reaction Status Date / Time No Known Drug Allergies Allergy Verified 12/18/23 07:25 Review of Systems ROS Narrative A ten point review of systems is negative except as noted above. [facility] Medical History (Updated 01/21/24 @ 12:17 by Michael Mckinney MD) CAD (coronary artery disease) ?I25.10 - Atherosclerotic heart disease of [place] coronary artery without angina pectoris (ICD-10) Chronic heart failure with preserved ejection fraction (HFpEF) ?I50.32 - Chronic diastolic (congestive) heart failure (ICD-10) Hypertension ?I10 - Essential (primary) hypertension (ICD-10) Myofascial pain ?M79.18 - Myalgia, other site (ICD-10) Greater trochanteric bursitis ?M70.60 - Trochanteric bursitis, unspecified hip (ICD-10) Osteoarthritis of right hip ?M16.11 - Unilateral primary osteoarthritis, right hip (ICD-10) Lumbar spondylosis ?M47.816 - Spondylosis without myelopathy or radiculopathy, lumbar region (ICD-10) Lumbar postlaminectomy syndrome ?M96.1 - Postlaminectomy syndrome, not elsewhere classified (ICD-10) Lumbar stenosis with neurogenic claudication ?M48.062 - Spinal stenosis, lumbar region with neurogenic claudication (ICD-10) Depression ?F32.A - Depression, unspecified (ICD-10) Chronic low back pain ?M54.50 - Low back pain, unspecified (ICD-10) ?G89.29 - Other chronic pain (ICD-10) Hypoxia ?R09.02 - Hypoxemia (ICD-10) Heart murmur ?R01.1 - Cardiac murmur, unspecified (ICD-10) Chronic obstructive pulmonary disease ?J44.9 - Chronic obstructive pulmonary disease, unspecified (ICD-10) Asthma ?J45.909 - Unspecified asthma, uncomplicated (ICD-10) Surgical History (Updated 11/26/23 @ 09:40 by Tapan Barboza MD) History of lumbar fusion ?Z98.1 - Arthrodesis status (ICD-10) Social History Smoking status: Never smoker Highest level of school completed/degree received: Associate degree: occupational, technical, vocational program Do you think of yourself as: straight/heterosexual Gender Identity: female Exam Narrative Exam Narrative: Nurses note and vital signs reviewed and patient is not hypoxic. General: The patient appears well and in no apparent distress. Patient is resting comfortably on cart. Skin: Warm, dry, no pallor noted. There is no rash noted. Head: Normocephalic, atraumatic Eye: Normal conjunctiva, no drainage Ears, Nose, Mouth, and Throat: oral mucosa is moist. Nares patent. Cardiovascular: Regular Rate and Rhythm Respiratory: Patient is in no distress, no accessory muscle use, lungs are clear to auscultation, no wheezing, rales or rhonchi Back: No bruise or rash or focal area of tenderness to palpation GI: Soft and nontender Musculoskeletal: The patient has no evidence of calf tenderness, no pitting edema, symmetrical pulses noted bilaterally Neurological: A&O, normal speech Psychiatric: Cooperative Constitutional Vital Signs, click to edit/add: Last Vital Signs Temp 97.7 F 01/21/24 11:58 Pulse 74 01/21/24 11:58 Resp 18 01/21/24 11:58 BP 175/87 H 01/21/24 11:58 Pulse Ox 94 L 01/21/24 11:58 O2 Del Method Room Air 01/21/24 11:58 Course Vital Signs Vital signs: Vital Signs Temperature 97.7 F 01/21/24 11:58 Pulse Rate 74 01/21/24 11:58 Respiratory Rate 18 03/17/24 11:58 Blood Pressure 175/87 H 01/21/24 11:58 Pulse Oximetry 94 L 01/21/24 11:58 Oxygen Delivery Method Room Air 01/21/24 11:58 Temperature 97.7 F 01/21/24 11:58 Pulse Rate 74 01/21/24 11:58 Respiratory Rate 18 01/21/24 11:58 Blood Pressure 175/87 H 01/21/24 11:58 Pulse Oximetry 94 L 01/21/24 11:58 Oxygen Delivery Method Room Air 01/21/24 11:58 MDM - Back Pain/Injury MDM Narrative Medical decision making narrative: The patient was given IM morphine and is being discharged home. She will call her pain management physician in the morning. I have no clinical suspicion of acute back injury. Treatment diagnosis and follow-up were discussed with the patient. Differential Diagnosis Differential diagnosis: Likely lumbar radiculopathy, sciatica, strain of lumbar region and other (Chronic back pain) Discharge Plan Discharge Stand Alone Forms: Portal Instructions Chief Complaint: Back Pain/Injury Clinical Impression: Acute exacerbation of chronic low back pain Patient Disposition: Home, Self-Care Time of Disposition Decision: 12:17 Condition: Good Mode of Transportation: Private Vehicle Prescriptions / Home Meds: No Action magnesium oxide 400 mg (241.3 mg magnesium) tablet 400 mg PO DAILY Rx Instructions: WITH FOOD omeprazole 20 mg capsule,delayed release(DR/EC) 20 mg PO BID albuterol sulfate 90 mcg/actuation HFA aerosol inhaler 2 puff INHALATION Q4H PRN (Reason: shortness of breath or wheezing) Trelegy Ellipta 200-62.5-25 mcg blister with device 1 inh INHALATION Q24H ipratropium-albuterol 0.5 mg-3 mg(2.5 mg base)/3 mL solution for nebulization 3 ml inhalation Q6H PRN (Reason: shortness of breath or wheezing) Qty: 90 0RF losartan [Cozaar] 50 mg tablet 50 mg PO BID Hold Instructions: unknown alendronate 35 mg tablet 35 mg PO .weekly pramipexole [Mirapex] 0.25 mg tablet 0.25 mg PO QPM Rx Instructions: administer 2 - 3 hours before bedtime montelukast 10 mg tablet 10 mg PO DAILY amlodipine 5 mg tablet 5 mg PO QDAY cholecalciferol (vitamin D3) 25 mcg (1,000 unit) tablet 25 mcg PO QDAY paroxetine HCl 30 mg tablet 30 mg PO QDAY pregabalin 75 mg capsule 75 mg PO BID sodium chloride 0.9 % solution for nebulization 3 ml INHALATION Q8H solifenacin 10 mg tablet 10 mg PO QDAY trazodone 100 mg tablet 100 mg PO .qhs guaifenesin [Mucus Relief ER] 600 mg Tablet Extended Release 12hr 600 mg PO BID 10 Days Qty: 20 0RF amoxicillin-pot clavulanate [Augmentin] 500-125 mg tablet 1 tab PO Q12H 7 Days Qty: 14 0RF prednisone 10 mg tablet 10 mg PO DAILY 15 Days Qty: 35 0RF Rx Instructions: 40mg daily x 5 days, then 20mg daily x 5 days, then 10mg daily x 5 days, then stop Instructions: Acute Low Back Pain (ED) Additional Instructions: Call your pain management physician tomorrow Referrals: Shaikh Ohara MD [Primary Care Provider] - 1 week
--- OUTSIDE RECORDS SUMMARY | 2024-01-21 12:18 | XMS_ITS | CCD ---
Author Name Unknown Address [address] [place] [address] Organization [facility] Care Team Providers Care Utility Teller Name Role Phone Steph Collier Attending Provider Unavailable Chantel Rainey Primary Care Provider Unavailabl e JoanaHerberth Attending Provider Unavailable Unavailable Primary Care Provider Unavailabl e UNKNOWN, PHYSICIAN Referring Unavailable JOO LINN Attending Unavailable JOO LINN Admitting Unavailable UNKNOWN, PHYSICIAN Primary Care Unavailable Rena Hurd Unavailable JoanaHerberth epps Unavailable Gato Domingo Unavailable Steph Collier Attending Provider [phone] MD Gato Domingo Attending Provider MD [...] e FABIRD, SAUNDERS H Primary Care Unavailable HOUSTON, DR BRITTANY Elizondo Consulting Unavailable DARWIN, DR [...] Unavailable FAWWAD, SAUNDERS H Admitting Unavailable FAWWAD, SAUNDESR H Attending Unavailable FAWWAD, SAUNDERS H Consulting Unavailable DR STEPH GRANADOS Consulting Unavailable FAWWAD, SAUNDERS H Primary Care Unavailable FAWWAD, SAUNDERS H Admitting Unavailable FAWWAD, SAUNDERS H Attending Unavailable FAWWAD, SAUNDERS H Consulting Unavailable [facility] Attending Unavailable JOO LINN Attending Unavailable [...] Translations: [fentanyl] Drug Allergy 07-07-20 17 Hallucinating [facility] (2 sources) linezolid; Translations: [LINEZOLID] Drug Allergy 03-17-20 20 [facility] (20 sources) Vancomycin; Translations: [VANCOMYCIN] Drug Allergy 03-17-20 20 Unknown [facility] (11 sources) DENIES METAL SENSITITIVITY Propensity to adverse reactions Unknown Jag.ag Other Medications Current Medications Medication Drug Class(es) [...] each nostril Nasally Once a day Active Euxtftxttsb-Sjrgvjdez-Sb lanter (1 source) Star t: 02-0 220 23 Pomzxkctgvo-Gszmgaguc-L ilanter (Trelegy Ellipta) 200-62.5-25 mcg blister with [...] 1 puff(s) by inhalation twice daily Ipratropium [place] Active 2 PUFF Inhalation Twice daily July [...] 10:21am take 1 capsule by mo [facility] every twelve hours Omeprazole 20 MG 1 [...] Active Start: 08-05-2022 [facility] Potassium Chloride [...] Interpretation Reference Range Facility Follow-Upon 05-08-2023 Follow-Up [id number] Nell Champion 1955 F Date Provider Department Center 05/08/2023 Siddharth-HETAL SCALES CARD Blair Baker Family History Problem Relation Age of Onset Heart failure Mother Heart disease Father Family Status - Relation Status Age at Mother Father Level of Service:87479 [place] OFFICE/OUTPATIENT ESTABLISHED LOW MDM 20-[address] [facility] 3605-03-2023 36 PATIENT CALLED TO CANCEL SURGERY FOR July D/T HER LUNG DISEASE. WILL CALL TO RESCHEDULE WHEN FULLY HEALED FROM LUNGS AND CLEARED//[facility] 04-19-2023 36 FYI CALLED PATIENT T O F/U ON MEDICAL AND PULMONARY CLEARANCES FOR R ELZA ON 05/19 AND PRE-OP RIYA'T 04/27 WITH US AND PATIENT IS CURRENTLY INPATIENT SINCE LAST WEEK D/T COVID AND PULMONARY ISSUES, SHE WILL CALL US ON 04/25 WITH PROGRESS, PLEASE ADVISE IF WE SHOULD CANCEL SURGERY FOR NOW..THANKS//[facility] SYMPTOMATIC COVID-19 ANTIGEN on 04-04-2023 EUA Statement SEE BELOW [facility] Comment on above: Result Comment: This test [...] sooner. Performed By: #### C VDAGS #### [facility] [address] [place] [address] Dr. Shayne Roldan SARS-CoV-2 (COVID-19) RNA KAYLEE+probe Ql (Unsp spec) Positive Abnormal NEGATIVE [facility] Comment on above: Performed By: #### C VDAGS #### [facility] [address] [place] [address] Dr. hSayne Roldan XR LSPINE 2_3 VIEWSon 2022 XR [...] STEPH GRANADOS Date: 2023-03-24 12:52 Normal [facility] PTH INTACTon 02-27-2023 PTH, Intact 87 pg/mL Critically high 15-65 [facility] Comment on above: Performed By: #### P THINT #### [facility] [address] [place] [address] Dr. Shayne Roldan HEMOGRAM AND PLATELon 2022 Hematocrit (Bld) [Volume fraction] 44.4 % Normal 36.0-48.0 [facility] Comment on above: Performed By: #### H H #### [facility] [address] [place] [address] Dr. Shayne Roldan Hemoglobin (Bld) [Mass/Vol] 14.5 g/dL Normal 12.0-16.0 [facility] Comment on above: Performed By: #### H H #### [facility] [address] [place] [address] Dr. Shayne Roldan MCH (RBC) [Entitic mass] 30.3 pg Normal 26.7-34.0 [facility] Comment on above: Performed By: #### H H #### [facility] [address] [place] [address] Dr. Shayne Roldan MCHC (RBC) [Mass/Vol] 32.7 g/dL Normal 29.9-35.2 [facility] Comment on above: Performed By: #### H H #### [facility] [address] [place] [address] Dr. Shayne Roldan MCV (RBC) [Entitic vol] 92.9 fL Normal 81.0-99.0 [facility] Comment on above: Performed By: #### H H #### [facility] [address] [place] [address] Dr. Shayne Roldan PLT 367 103/ul Normal 150-450 [facility] Comment on above: Performed By: #### H H #### [facility] [address] [place] [address] Dr. Shayne Roldan RBC 4.78 106/ul Normal 4.20-5.40 [facility] Comment on above: Performed By: #### H H #### [facility] [address] [place] [address] Dr. Shayne Roldan WBC 9.9 103/ul Normal 4.0-11.0 [facility] Comment on above: Performed By: #### H H #### [facility] [address] [place] [address] Dr. Shayne Roldan MAGNESIUMon 02-25-2023 Magnesium [Mass/Vol] 1.6 mg/dL Critically low 1.8-2.4 [facility] Comment on above: Performed By: #### M G, RENAL, URIC #### [facility] [address] [place] [address] Dr. Shayne Roldan RENAL FUNCTION PANELon 02-25 Albumin [Mass/Vol] 3.4 g/dL Normal 3.4-5.0 [facility] Comment on above: Performed By: #### M Poncho, RENAL, URIC #### [facility] [address] [place] [address] Dr. Shayne Roldan Calcium [Mass/Vol] 8.7 mg/dL Normal 8.5-10.1 [facility] Comment on above: Performed By: #### M G, RENAL, URIC #### [facility] [address] [address] [address] Shayne Roldan Chloride [Moles/Vol] 104 mmol/L Normal 98-107 [facility] Comment on above: Performed By: #### M G, RENAL, URIC #### [facility] [address] [address] [address] Shayne Roldan CO2 [Moles/Vol] 25.9 mmol/L Normal 21.0-32.0 [facility] Comment on above: Performed By: #### M G, RENAL, URIC #### [facility] [address] [address] [address] Shayne Roldan Creatinine [Mass/Vol] 1.19 mg/dL Critically high 0.55-1.02 [facility] Comment on above: Performed By: #### M G, RENAL, URIC #### [facility] [address] [place] [address] Dr. Shayne Roldan EGFR-AF GABONESE 55 mL/min/1.73m2 Critically low >=60 [facility] Comment on above: Performed By: #### M G, RENAL, URIC #### [facility] [address] [place] [address] Dr. Shayne Roldan EGFR-NON AF GABONESE 45 mL/min/1.73m2 Critically low >=60 [facility] Comment on above: Performed By: #### M G, RENAL, URIC #### [facility] [address] [address] [address] Shayne Roldan Glucose [Mass/Vol] 193 mg/dL Critically high 74-106 [facility] Comment on above: Performed By: #### M G, RENAL, URIC #### [facility] [address] [address] [address] Shayne Roldan Phosphate [Mass/Vol] 3.2 mg/dL Normal 2.6-4.7 [facility] Comment on above: Performed By: #### M G, RENAL, URIC #### [facility] [address] [address] [address] Shayne Roldan Potassium [Moles/Vol] 3.9 mmol/L Normal 3.5-5.1 [facility] Comment on above: Performed By: #### M G, RENAL, URIC #### [facility] [address] [place] [address] Dr. Shayne Roldan Sodium [Moles/Vol] 140 mmol/L Normal 136-145 [facility] Comment on above: Performed By: #### M G, RENAL, URIC #### [facility] [address] [place] [address] Dr. Shayne Roldan Urea nitrogen [Mass/Vol] 17.0 mg/dL Normal 7.0-18.0 [facility] Comment on above: Performed By: #### M G, RENAL, URIC #### [facility] [address] [place] [address] Dr. Shayne Roldan UA RANDOM W/MICROSCOPICon BACTERIA TRACE Abnormal NONE SEEN [facility] Comment on above: Performed By: #### M G, RENAL, URIC #### [facility] [address] [place] [address] Dr. Shayne Roldan Bilirubin Ql (U) Negative Normal NEGATIVE [facility] Comment on above: Performed By: #### M G, RENAL, URIC #### [facility] [address] [place] [address] Dr. Shayne Roldan CAST NONE SEEN Normal NONE SEEN [facility] Comment on above: Performed By: #### M G, RENAL, URIC #### [facility] [address] [place] [address] Dr. Shayne Roldan Clarity (U) CLEAR Normal CLEAR [facility] Comment on above: Performed By: #### M G, RENAL, URIC #### [facility] [address] [place] [address] Dr. Shayne Roldan Color (U) LT. YELLOW Normal YELLOW [facility] Comment on above: Performed By: #### M G, RENAL, URIC #### [facility] [address] [place] [address] Dr. Shayne Roldan Crystals LM Nom (Urine sed) NONE SEEN Normal NONE SEEN [facility] Comment on above: Performed By: #### M G, RENAL, URIC #### [facility] [address] [address] [address] Shayne Roldan Epithelial cells LM Ql (Urine sed) RARE Normal NONE SEEN /RARE [facility] Comment on above: Performed By: #### M G, RENAL, URIC #### [facility] [address] [address] [address] Shayne Roldan Glucose Ql (U) Negative Normal NEGATIVE [facility] Comment on above: Performed By: #### M G, RENAL, URIC #### [facility] [address] [address] [address] Shayne Roldan Hemoglobin Ql (U) Negative Normal NEGATIVE [facility] Comment on above: Performed By: #### M G, RENAL, URIC #### [facility] [address] [address] [address] Shayne Roldan Ketones Ql (U) Negative Normal NEGATIVE [facility] Comment on above: Performed By: #### M G, RENAL, URIC #### [facility] [address] [address] [address] Shayne Roldan LEUKOCYTES Negative Normal NEGATIVE [facility] Comment on above: Performed By: #### M G, RENAL, URIC #### [facility] [address] [address] [address] Shayne Roldan MUCOUS NONE SEEN Normal NONE SEEN [facility] Comment on above: Performed By: #### M G, RENAL, URIC #### [facility] [address] [address] [address] Shayne Roldan Nitrite Ql (U) Negative Normal NEGATIVE [facility] Comment on above: Performed By: #### M G, RENAL, URIC #### [facility] [address] [address] [address] Shayne Roldan pH (U) 5.0 [pH] Normal 5-9 [facility] Comment on above: Performed By: #### M G, RENAL, URIC #### [facility] [address] [address] [address] Shayne Roldan RBC 0-2 Normal 0-2 [facility] Comment on above: Performed By: #### M G, RENAL, URIC #### [facility] [address] [place] [address] Dr. Shayne Roldan SPEC GRAVITY 1.025 Normal 1.005-<=1.025 [facility] [place] [facility] Comment on above: Performed By: #### M G, RENAL, URIC #### [facility] [address] [place] [address] Dr. Shayne Roldan UA PROTEIN Negative Normal NEGATIVE/ TRACE [facility] Comment on above: Performed By: #### M G, RENAL, URIC #### [facility] [address] [place] [address] Dr. Shayne Roldan Urobilinogen Qn (U) 0.2 {Rogelio'U}/dL Normal 0.2 - 1. 0 [facility] Comment on above: Performed By: #### M G, RENAL, URIC #### [facility] [address] [place] [address] Dr. Shayne Roldan WBC 0-2 Abnormal NONE SEEN [facility] Comment on above: Performed By: #### M G, RENAL, URIC #### [facility] [address] [place] [address] Dr. Shayne Roldan URIC ACID SERUMon 02-25-2023 Urate [Mass/Vol] 6.1 mg/dL Critically high 2.6-6.0 [facility] Comment on above: Performed By: #### M G, RENAL, URIC #### [facility] [address] [place] [address] Dr. Shayne Roldan URINE T PROTEIN CREAT RATIOo n 02-25-2023 Protein (U) [Mass/Vol] 13.0 mg/dL Critically high <=12.0 [facility] Comment on above: Performed By: #### M G, RENAL, URIC #### [facility] [address] [place] [address] Dr. Shayne Roldan UR PROT CREAT RAT 0.16 Normal [facility] Comment on above: Performed By: #### M G, RENAL, URIC #### [facility] [address] [place] [address] Dr. Shayne Roldan URINE CREAT 83.60 mg/dL Normal 20.00-300.00 [facility] Comment on above: Performed By: #### M G, RENAL, URIC #### [facility] [address] [place], [place] [address] Dr. Shayne Roldan VITAMIN D 25 OHon 02-25-2023 VIT D 25-OH 41.6 ng/mL Normal [facility] Comment on above: Performed By: #### M G, RENAL, URIC #### [facility] [address] [place], [place] [address] Dr. Shayne Roldan VIT D RANGES SEE BELOW Normal [facility] Comment on above: Result Comment: <20 ng/mL Vit D deficient 20 - <30 ng/mL Vit D insufficient 30 - 100 ng/mL Vit D sufficient >100 ng/mL Potential Toxicity Performed By: #### M G, RENAL, URIC #### [facility] [address] [place], [place] [address] Dr. Shayne Roldan XR CHEST 2 Von [...] BRITTANY GALDAMEZ Date: 2023-02-22 16:15 Normal [facility] MAMM SCREEN 3D PRATEEK CADon 12-15-2022 MAMM SCREEN 3D PRATEEK CAD Patient: DIANA CHAMPION Exam Date: 12/15/2022 : 1955 Gender:F Ordering : DR JACK HALL . Admission #: [id number] Family : Order #: [id number] CLICK HERE TO VIEW EXAM RADIOLOGY REPORT PROCEDURE: MAMMOGRAM SCREENING 3D BILATERAL CAD COMPARISON: MAMM SCREEN 3D PRATEEK CAD, 11/26/2021. INDICATIONS: Calculator Name NCI Breast Cancer Risk Assessment Tool 5 Year Breast Cancer Risk 1.20% Lifetime Breast Cancer Risk 4.40% Personal Breast Cancer No Personal Ovarian Cancer No Treatments Excision, radiation, chemotherapy Family Cancers None LOCATION: [facility] BREAST COMPOSITION: Almost entirely fatty. FINDINGS: [...] Walters MD on 12/15/2022 at 10:51 Normal [facility] XR DEXA BONE DENSITYon 12-15 XR DEXA [...] by: STEPH GRANADOS Date: 2022-12-15 09:50 Normal [facility] Fran 12-08-2022 L - -------- Specimen: [id number] Received: 12/08/22 Status: CELIA Oleasudeep Num: [id number] Spec Type: Surgical Subm Dr: Gato Domingo MD Tissues: A Colon Biopsy (DESC COL POLYP) Procedures: FLORENCIA/Evonne, Gross/Micro L4 -------- Age/ Patient Sex Location Account Attending Physician -------- Diana Champion 67/F [id number] Gato Domingo MD -------- SPEC NUM: [id number] RECD: 12/08/226 STATUS: CELIA MARIO NUM: [id number] KENDRA: 12/08/[address] [facility] [address]: Gato Domingo MD ENTERED: 12/08/[address] [facility] [address]: SPEC TYPE: Surgical DEPT: S ENTERED BY: [id number] RECV BY: [id number] ORDERED: FLORENCIA/Evonne, Gross/Micro L4 ORDERED: FLORENCIA/Evonne, Gross/Micro [...] support the above pathologic diagnosis. CPT Codes 49949 -------- -------- Specimen: [id number] Received: 12/08/22 Status: CELIA Kay Num: [id number] Spec Type: Surgical Subm Dr: Gato Domingo MD Tissues: A Colon Biopsy (DESC COL POLYP) Procedures: FLORENCIA/Evonne, Gross/Micro L4 -------- Patient: Diana Champion [id number] (Continued) -------- Signed (signature on file) Eunice Rosa MD 12/09/22 1053 [facility] PAP ACOG PANEL 2: 30 to 65on 11-16-2022 . . Normal [facility] Comment on above: Performed By: #### 4 [id number] #### [facility] [address] [address] [address] Shayne Roldan Age Gdln ACOG Testing Comment Normal [facility] Comment on above: Result Comment: <21 or >65 or no age provided Performed By: #### 4 [id number] #### [facility] [address] [address] [address] Shayne Roldan DIAGNOSIS: Comment [facility] Comment on above: Result Comment: NEGA TIVE FOR INTRAEPITHELIAL LESION OR MALIGNANCY. Performed By: #### [id number] #### [facility] [address] [place] [address] Dr. Shayne Roldan Methodology: Comment [facility] Comment on above: Result Comment: This liquid based ThinPrep(R) pap test was screened with the use of an image guided system. Performed By: #### 4 [id number] #### [facility] [address] [place] [address] Dr. Shayne Roldan Note: Comment [facility] Comment on above: Result Comment: The Pap smear is a screening test designed to aid in the detection of premalignant and malignant conditions of the uterine cervix. It is not a diagnostic procedure and should not be used as the sole means of detecting cervical cancer. Both false-positive and false-negative reports do occur. . Performed By: #### 4 [id number] #### [facility] [address] [address] [address] Shayne Roldan Performed by: Comment Normal [facility] Comment on above: Result Comment: Onur Aguilar Retail Branch Manager (ASCP) Performed By: #### 4 [id number] #### [facility] [address] [place] [address] Dr. Shayne Roldan Specimen adequacy: Comment Normal [facility] Comment on above: Result Comment: Sati sfactory for evaluation. Endocervical and/or squamous metaplastic cells (endocervical component) are present. Performed By: #### 4 [id number] #### [facility] [address] [place] [address] Dr. Shayne Roldan RENAL FUNCTION PANELon 08-19 Albumin [Mass/Vol] 3.4 g/dL Normal 3.4-5.0 [facility] Comment on above: Performed By: #### M G, RENAL, URIC #### [facility] [address] [place] [address] Dr. Shayne Roldan Calcium [Mass/Vol] 8.4 mg/dL Critically low 8.5-10.1 [facility] Comment on above: Performed By: #### M G, RENAL, URIC #### [facility] [address] [place] [address] Dr. Shayne Roldan Chloride [Moles/Vol] 103 mmol/L Normal 98-107 [facility] Comment on above: Performed By: #### M G, RENAL, URIC #### [facility] [address] [place] [address] Dr. Shayne Roldna CO2 [Moles/Vol] 27.8 mmol/L Normal 21.0-32.0 [facility] Comment on above: Performed By: #### M G, RENAL, URIC #### [facility] [address] [place] [address] Dr. Shayne Roldan Creatinine [Mass/Vol] 1.02 mg/dL Normal 0.55-1.02 [facility] Comment on above: Performed By: #### M G, RENAL, URIC #### [facility] [address] [place] [address] Dr. Shayne Roldan EGFR-AF GABONESE >60 Normal >=60 [facility] Comment on above: Performed By: #### M G, RENAL, URIC #### [facility] [address] [place] [address] Dr. Shayne Roldan EGFR-NON AF GABONESE 54 mL/min/1.73m2 Critically low >=60 [facility] Comment on above: Performed By: #### M G, RENAL, URIC #### [facility] [address] [address] [address] Shayne Roldan Glucose [Mass/Vol] 110 mg/dL Critically high 74-106 [facility] Comment on above: Performed By: #### M G, RENAL, URIC #### [facility] [address] [address] [address] Shayne Roldan Phosphate [Mass/Vol] 2.3 mg/dL Critically low 2.6-4.7 [facility] Comment on above: Performed By: #### M G, RENAL, URIC #### [facility] [address] [address] [address] Shayne Roldan Potassium [Moles/Vol] 3.2 mmol/L Critically low 3.5-5.1 [facility] Comment on above: Performed By: #### M G, RENAL, URIC #### [facility] [address] [place] [address] Dr. Shayne Roldan Sodium [Moles/Vol] 138 mmol/L Normal 136-145 [facility] Comment on above: Performed By: #### M G, RENAL, URIC #### [facility] [address] [address] [address] Shayne Roldan Urea nitrogen [Mass/Vol] 14.0 mg/dL Normal 7.0-18.0 [facility] Comment on above: Performed By: #### M G, RENAL, URIC #### [facility] [address] [address] [address] Shayne Roldan PTH INTACTon 08-06-2022 PTH, Intact 40 pg/mL Normal 15-65 [facility] Comment on above: Performed By: #### M G, RENAL, URIC #### [facility] [address] [place] [address] Dr. Shayne Roldan HEMOGRAM AND PLATELon 2021 Hematocrit (Bld) [Volume fraction] 39.8 % Normal 36.0-48.0 [facility] Comment on above: Performed By: #### M G, RENAL, URIC #### [facility] [address] [place] [address] Dr. Shayne Roldan Hemoglobin (Bld) [Mass/Vol] 13.4 g/dL Normal 12.0-16.0 [facility] Comment on above: Performed By: #### M G, RENAL, URIC #### [facility] [address] [place] [address] Dr. Shayne Roldan MCH (RBC) [Entitic mass] 30.5 pg Normal 26.7-34.0 [facility] Comment on above: Performed By: #### M G, RENAL, URIC #### [facility] [address] [place] [address] Dr. Shayne Roldan MCHC (RBC) [Mass/Vol] 33.7 g/dL Normal 29.9-35.2 [facility] Comment on above: Performed By: #### M Poncho, RENAL, URIC #### [facility] [address] [place] [address] Dr. Shayne Roldan MCV (RBC) [Entitic vol] 90.5 fL Normal 81.0-99.0 [facility] Comment on above: Performed By: #### M G, RENAL, URIC #### [facility] [address] [place] [address] Dr. Shayne Roldan PLT 299 103/ul Normal 150-450 [facility] Comment on above: Performed By: #### M Poncho, RENAL, URIC #### [facility] [address] [place] [address] Dr. Shayne Roldan RBC 4.40 106/ul Normal 4.20-5.40 [facility] Comment on above: Performed By: #### M G, RENAL, URIC #### [facility] [address] [place] [address] Dr. Shayne Roldan WBC 8.8 103/ul Normal 4.0-11.0 [facility] Comment on above: Performed By: #### M G, RENAL, URIC #### [facility] [address] [place] [address] Dr. Shayne Roldan MAGNESIUMon 08-05-2022 Magnesium [Mass/Vol] 1.5 mg/dL Critically low 1.8-2.4 [facility] Comment on above: Performed By: #### M G, RENAL, URIC #### [facility] [address] [place] [address] Dr. Shayne Roldan RENAL FUNCTION PANELon 08-05 Albumin [Mass/Vol] 3.5 g/dL Normal 3.4-5.0 [facility] Comment on above: Performed By: #### M G, RENAL, URIC #### [facility] [address] [place] [address] Dr. Shayne Roldan Calcium [Mass/Vol] 8.4 mg/dL Critically low 8.5-10.1 [facility] Comment on above: Performed By: #### M G, RENAL, URIC #### [facility] [address] [place] [address] Dr. Shayne Roldan Chloride [Moles/Vol] 101 mmol/L Normal 98-107 [facility] Comment on above: Performed By: #### M G, RENAL, URIC #### [facility] [address] [place] [address] Dr. Shayne Roldan CO2 [Moles/Vol] 29.5 mmol/L Normal 21.0-32.0 [facility] Comment on above: Performed By: #### M G, RENAL, URIC #### [facility] [address] [place] [address] Dr. Shayne Roldan Creatinine [Mass/Vol] 1.04 mg/dL Critically high 0.55-1.02 [facility] Comment on above: Performed By: #### M G, RENAL, URIC #### [facility] [address] [place] [address] Dr. Shayne Roldan EGFR-AF GABONESE >60 Normal >=60 [facility] Comment on above: Performed By: #### M G, RENAL, URIC #### [facility] [address] [place] [address] Dr. Shayne Roldan EGFR-NON AF GABONESE 53 mL/min/1.73m2 Critically low >=60 [facility] Comment on above: Performed By: #### M G, RENAL, URIC #### [facility] [address] [place] [address] Dr. Shayne Roldan Glucose [Mass/Vol] 92 mg/dL Normal 74-106 [facility] Comment on above: Performed By: #### M G, RENAL, URIC #### [facility] [address] [place] [address] Dr. Shayne Roldan Phosphate [Mass/Vol] 2.4 mg/dL Critically low 2.6-4.7 [facility] Comment on above: Performed By: #### M G, RENAL, URIC #### [facility] [address] [place] [address] Dr. Shayne Roldan Potassium [Moles/Vol] 2.8 mmol/L Critically low 3.5-5.1 [facility] Comment on above: Performed By: #### M G, RENAL, URIC #### [facility] [address] [place] [address] Dr. Shayne Roldan Sodium [Moles/Vol] 137 mmol/L Normal 136-145 [facility] Comment on above: Performed By: #### M G, RENAL, URIC #### [facility] [address] [place] [address] Dr. Shayne Roldan Urea nitrogen [Mass/Vol] 10.0 mg/dL Normal 7.0-18.0 [facility] Comment on above: Performed By: #### M G, RENAL, URIC #### [facility] [address] [place] [address] Dr. Shayne Roldan UA RANDOM W/MICROSCOPICon BACTERIA SMALL Abnormal NONE SEEN [facility] Comment on above: Performed By: #### U AMIC #### [facility] [address] [place] [address] Dr. Shayne Roldan Bilirubin Ql (U) Negative Normal NEGATIVE [facility] Comment on above: Performed By: #### U AMIC #### [facility] [address] [place] [address] Dr. Shayne Roldan CAST NONE SEEN Normal NONE SEEN [facility] Comment on above: Performed By: #### U AMIC #### [facility] [address] [place] [address] Dr. Shayne Roldan Clarity (U) CLEAR Normal CLEAR [facility] Comment on above: Performed By: #### U AMIC #### [facility] [address] [address] [address] Shayne Roldan Color (U) LT. YELLOW Normal YELLOW [facility] Comment on above: Performed By: #### U AMIC #### [facility] [address] [address] [address] Shayne Roldan Crystals LM Nom (Urine sed) NONE SEEN Normal NONE SEEN [facility] Comment on above: Performed By: #### U AMIC #### [facility] [address] [address] [address] Shayne Roldan Epithelial cells LM Ql (Urine sed) FEW Abnormal NONE SEEN /RARE [facility] Comment on above: Performed By: #### U AMIC #### [facility] [address] [address] [address] Shayne Roldan Glucose Ql (U) Negative Normal NEGATIVE [facility] Comment on above: Performed By: #### U AMIC #### [facility] [address] [address] [address] Shayne Roldan Hemoglobin Ql (U) Negative Normal NEGATIVE [facility] Comment on above: Performed By: #### U AMIC #### [facility] [address] [address] [address] hSayne Roldan Ketones Ql (U) Negative Normal NEGATIVE The [facility] Comment on above: Performed By: #### U AMIC #### [facility] [address] [address] [address] Shayne Roldan LEUKOCYTES TRACE Abnormal NEGATIVE [facility] Comment on above: Performed By: #### U AMIC #### [facility] [address] [address] [address] Shayne Roldan MUCOUS NONE SEEN Normal NONE SEEN [facility] Comment on above: Performed By: #### U AMIC #### [facility] [address] [address] [address] Shayne Roldan Nitrite Ql (U) Negative Normal NEGATIVE [facility] Comment on above: Performed By: #### U AMIC #### [facility] [address] [place] [address] Dr. Shayne Roldan pH (U) 6.0 [pH] Normal 5-9 [facility] Comment on above: Performed By: #### U AMIC #### [facility] [address] [place] [address] Dr. Shayne Roldan RBC NONE SEEN Abnormal 0-2 [facility] Comment on above: Performed By: #### U AMIC #### [facility] [address] [place] [address] Dr. Shayne Roldan SPEC GRAVITY <=1.005 Abnormal 1.005-<=1.025 [facility] [place] [facility] Comment on above: Performed By: #### U AMIC #### [facility] [address] [place] [address] Dr. Shayne Roldan UA PROTEIN Negative Normal NEGATIVE/ TRACE [facility] Comment on above: Performed By: #### U AMIC #### [facility] [address] [place] [address] Dr. Shayne Roldan Urobilinogen Qn (U) 0.2 {Rogelio'U}/dL Normal 0.2 - 1. 0 [facility] Comment on above: Performed By: #### U AMIC #### [facility] [address] [place] [address] Dr. Shayne Roldan WBC 5-10 Abnormal NONE SEEN [facility] Comment on above: Performed By: #### U AMIC #### [facility] [address] [place] [address] Dr. Shayne Roldan URIC ACID SERUMon 08-05-2022 Urate [Mass/Vol] 6.5 mg/dL Critically high 2.6-6.0 [facility] Comment on above: Performed By: #### M G, RENAL, URIC #### [facility] [address] [place] [address] Dr. Shayne Roldan URINE T PROTEIN CREAT RATIOo n 08-05-2022 Protein (U) [Mass/Vol] 4.8 mg/dL Normal <=12.0 [facility] Comment on above: Performed By: #### U RTPCR #### [facility] [address] [address] [address] Shayne Roldan UR PROT CREAT RAT 0.09 Normal [facility] Comment on above: Performed By: #### U RTPCR #### [facility] [address] [place] [address] Dr. Shayne Roldan URINE CREAT 52.65 mg/dL Normal 20.00-300.00 [facility] Comment on above: Performed By: #### U RTPCR #### [facility] [address] [place] [address] Dr. Shayne Roldan VITAMIN D 25 OHon 08-05-2022 VIT D 25-OH 38.9 ng/mL Normal [facility] Comment on above: Performed By: #### M G, RENAL, URIC #### [facility] [address] [place] [address] Dr. Shayne Roldan VIT D RANGES SEE BELOW Normal [facility] Comment on above: Result Comment: <20 ng/mL Vit D deficient 20 - <30 ng/mL Vit D insufficient 30 - 100 ng/mL Vit D sufficient >100 ng/mL Potential Toxicity Performed By: #### M G, RENAL, URIC #### [facility] [address] [place] [address] Dr. Shayne oRldan IMMUNOGLOBULINS IGA/IGM/IGG/ IGE QUANTITAon 07-12-2022 Immunoglobulin A, Qn, Serum 295 mg/dL Normal 87-352 [facility] Comment on above: Result Comment: Perf ormed at: CB Performed By: #### M G, RENAL, URIC #### [facility] [address] [place] [address] Dr. Shayne Roldan Immunoglobulin E, Total 32 IU/mL Normal 6-495 [facility] Comment on above: Result Comment: Perf ormed at: BN Performed By: #### M G, RENAL, URIC #### [facility] [address] [place] [address] Dr. Shayne Roldan Immunoglobulin G, Qn, Serum 729 mg/dL Normal 586-1602 [facility] Comment on above: Result Comment: Perf ormed at: CB Performed By: #### M G, RENAL, URIC #### [facility] [address] [address] [address] Shayne Roldan Immunoglobulin M, Qn, Serum 75 mg/dL Normal 26-217 [facility] Comment on above: Result Comment: Perf ormed at: CB Performed By: #### M G, RENAL, URIC #### [facility] [address] [address] [address] Shayne Roldan Abstracton 07-08-2022 Abstract [id number] ChampionYannickclarice Fan 1955 F Date Provider Department Center 07/08/2022 JOHANNA MEDINA [facility] Family History Problem Relation Age of Onset Heart failure Mother Heart disease Father Family Status - Relation Status Age at Mother Father Normal [facility] CBC AUTO DIFFon 07-05-2022 BASO # 0.1 103/ul Normal 0.0-0.1 [facility] Comment on above: Performed By: #### M G, RENAL, URIC #### [facility] [address] [address] [address] Shayne Roldan Basophils/100 WBC (Bld) 0.7 % Normal 0.2-2.0 [facility] Comment on above: Performed By: #### M G, RENAL, URIC #### [facility] [address] [place] [address] Dr. Shayne Roldan EO # 0.4 103/ul Normal 0.0-0.7 [facility] Comment on above: Performed By: #### M G, RENAL, URIC #### [facility] [address] [address] [address] Shayne Roldan Eosinophils/100 WBC (Bld) 4.4 % Normal 0.9-7.0 [facility] Comment on above: Performed By: #### M G, RENAL, URIC #### [facility] [address] [place] [address] Dr. Shayne Roldan Erythrocyte distribution width (RBC) [Ratio] 12.6 % Normal 11.0-15.0 [facility] Comment on above: Performed By: #### M G, RENAL, URIC #### [facility] [address] [address] [address] Shayne Roldan Hematocrit (Bld) [Volume fraction] 40.2 % Normal 36.0-48.0 [facility] Comment on above: Performed By: #### M G, RENAL, URIC #### [facility] [address] [place] [address] Dr. Shayne Roldan Hemoglobin (Bld) [Mass/Vol] 13.6 g/dL Normal 12.0-16.0 [facility] Comment on above: Performed By: #### M G, RENAL, URIC #### [facility] [address] [place] [address] Dr. Shayne Roldan IG # 0.07 10e3/ul Critically high 0.00-0.03 [facility] Comment on above: Performed By: #### M G, RENAL, URIC #### [facility] [address] [place] [address] Dr. Shayne Roldan IG % 0.8 % Critically high 0.0-0.5 [facility] [place] [facility] Comment on above: Performed By: #### M G, RENAL, URIC #### [facility] [address] [place] [address] Dr. Shayne Roldan LYMPH # 2.3 103/ul Normal 1.2-3.8 [facility] Comment on above: Performed By: #### M G, RENAL, URIC #### [facility] [address] [place] [address] Dr. Shayne Roldan Lymphocytes/100 WBC (Bld) 24.7 % Normal 20.5-60.0 [facility] Comment on above: Performed By: #### M G, RENAL, URIC #### [facility] [address] [place] [address] Dr. Shayne Roldan MANUAL DIFF REQ NO Normal [facility] [place] [facility] Comment on above: Performed By: #### M G, RENAL, URIC #### [facility] [address] [place] [address] Dr. Shayne Roldan MCH (RBC) [Entitic mass] 30.7 pg Normal 26.7-34.0 [facility] Comment on above: Performed By: #### M G, RENAL, URIC #### [facility] [address] [place] [address] Dr. Shayne Roldan MCHC (RBC) [Mass/Vol] 33.8 g/dL Normal 29.9-35.2 [facility] Comment on above: Performed By: #### M G, RENAL, URIC #### [facility] [address] [place] [address] Dr. Shayne Roldan MCV (RBC) [Entitic vol] 90.7 fL Normal 81.0-99.0 [facility] Comment on above: Performed By: #### M G, RENAL, URIC #### [facility] [address] [place] [address] Dr. Shayne Roldan MONO # 0.7 103/ul Normal 0.3-0.8 [facility] Comment on above: Performed By: #### M G, RENAL, URIC #### [facility] [address] [place] [address] Dr. Shayne Roldan Monocytes/100 WBC (Bld) 7.7 % Normal 1.7-12.0 [facility] Comment on above: Performed By: #### M G, RENAL, URIC #### [facility] [address] [place] [address] Dr. Shayne Roldan NEUT # 5.7 103/ul Normal 1.4-6.5 [facility] Comment on above: Performed By: #### M G, RENAL, URIC #### [facility] [address] [place] [address] Dr. Shayne Roldan Neutrophils/100 WBC (Bld) 61.7 % Normal 43.0-75.0 [facility] Comment on above: Performed By: #### M G, RENAL, URIC #### [facility] [address] [place] [address] Dr. Shayne Roldan Platelet mean volume (Bld) [Entitic vol] 8.8 fL Critically low 9.5-13.5 [facility] Comment on above: Performed By: #### M G, RENAL, URIC #### [facility] [address] [place] [address] Dr. Shayne Roldan PLT 279 103/ul Normal 150-450 [facility] Comment on above: Performed By: #### M G, RENAL, URIC #### [facility] [address] [address] [address] Shayne Roldan RBC 4.43 106/ul Normal 4.20-5.40 [facility] Comment on above: Performed By: #### M G, RENAL, URIC #### [facility] [address] [address] [address] Shayne Roldan WBC 9.1 103/ul Normal 4.0-11.0 [facility] Comment on above: Performed By: #### M G, RENAL, URIC #### [facility] [address] [address] [address] Shayne Roldan Covid-19 PCR ([facility])on SARS-CoV-2 (COVID-19) RNA KAYLEE+probe Ql (Unsp spec) Not detected Normal NOT DETECTED [facility] Comment on above: Result Comment: This test is not yet approved or cleared by the [place] FDA. When there are no FDA-approved or cleared tests available, and other criteria are met, FDA can make tests available under an emergency access mechanism called an Emergency Use Authorization (EUA). The EUA for this test is supported by the [place] of Health and Human Service's (HHS's) declaration [...] By: #### M G, RENAL, URIC #### [facility] [address] [address] [address] Shayne Roldan XR CHEST 2 Von [...] NARDA LONDONO Date: 2022-06-08 19:58 Normal [facility] SARS-CoV-2 (COVID-19) RNA KAYLEE+probe Ql (Unsp spec) Not detected Normal NOT DETECTED [facility] Comment on above: Result Comment: This test is not yet approved or cleared by the [place] FDA. When there are no FDA-approved or cleared tests available, and other criteria are met, FDA can make tests available under an emergency access mechanism called an Emergency Use Authorization (EUA). The EUA for this test is supported by the Clinical [facility] of Health and Human Service's (HHS's) [...] consistent with SARS-CoV-2. Performed By: #### [facility] #### [facility] [address] [place], [place] [address] Dr. Shayne Roldan DEXA AXIALon 03-01-2022 DEXA AXIAL [facility] Department of Radiology [address] [place] [id number] Patient Name: DIANA CHAMPION : 1955 Sex: F Age: Race: White Pt. Location: Patient Status: D Ordered Date: 02/24/2022 1:25:00 PM Completed Date: 03/01/2022 09:46 AM Requesting Provider: CINDA ANTONIO Attending Provider: Report Copy To: Signs & Symptoms: Z78.0 Asymptomatic menopausal state I10 History: [place] Comments: Exam: DEXA AXIAL DEXA AXIAL 03/01/2022 [...] characteristics. Electronically signed: Luzma Fernandez. Transcribed by: [email or web address], User Resident: Electronically Signed by: LUZMA FERNANDEZ @ 03/02/2022 01:07 PM Normal [facility] SCOLIOSIS 2 [facility] 02-24-2022 SCOLIOSIS 2 [facility] Department of Radiology [address] [place] [id number] Patient Name: DIANA CHAMPION : 1955 Sex: F Age: Race: White Pt. Location: Patient Status: D Ordered Date: 02/24/2022 1:25:00 PM Completed Date: 02/24/2022 01:44 PM Requesting Provider: CINDA ANTONIO Attending Provider: Report Copy To: Signs & Symptoms: M43.10 Spondylolisthesis, site unspecified I10 History: Comments: Views (X-RAY, SCOLIOSIS): PA, Lateral evaluate Exam: SCOLIOSIS 2 [facility] Scoliosis. Worsening pain. Frontal and lateral thoracolumbar spine IMPRESSION: 1. Diffuse disc disease and facet arthritis. Right convex mid lumbar curvature measuring 16 degrees. Interbody fusion hardware lower lumbar spine. Electronically signed: Hugo Lynn. Transcribed by: [email or web address], User Resident: Electronically Signed by: HUGO LYNN @ 02/26/2022 11:07 AM Normal [facility] Comment on above: Order Comment: Views (X-RAY, SCOLIOSIS): PA, Lateral evaluate CT LUMBAR SPINE W CONTRASTon 01-24-2022 CT LUMBAR SPINE W CONTRAST [facility] Department of Radiology [address] [place] [id number] Patient Name: DIANA CHAMPION : 1955 [...] L1-2. Electronically signed: Gaurang Lawrence. Transcribed by: [email or web address], User Resident: Electronically Signed by: GAURANG Sudeep LAWRENCE @ 01/26/2022 08:58 AM Normal [facility] Comment on above: Order Comment: , CT MYELOGRAM>PAPER WORK IN CHART LUMBAR MYELOGRAMon 2 LUMBAR MYELOGRAM [facility] Department of Radiology [address] [place] [phone] Patient Name: DIANA CHAMPION : 1955 Sex: F Age: Race: White Pt. Location: Patient Status: O Ordered Date: 01/09/2022 9:00:00 AM Completed Date: 01/24/2022 02:37 PM Requesting Provider: JOO LINN Attending Provider: JOO LINN Report Copy To: UNKNOWN, PHYSICIAN Signs & Symptoms: M54.16 Radiculopathy, lumbar region I10 History: Jessica Is patient on thinners? 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 Consent was obtained. Timeout: [place] protocol timeout verification performed. PROCEDURE: Estimated blood [...] report. Electronically signed: Greg Marlow. Transcribed by: [email or web address], User Resident: DEBBIE JI Electronically Signed by: GREG MARLOW @ 01/24/2022 04:07 PM I personally read this/these film(s) with this resident Normal [facility] Comment on above: Order Comment: , CT MYELOGRAM> PAPER WORK SCANNED IN CHART , CT MYELOGRAM> PAPER WORK SCANNED IN CHART , , , Ordering Provider - JOO LINN MD , HIP LEFT 1 OR 2 VWS WITH PEL VISon 01-06-2022 HIP LEFT 1 OR 2 VWS WITH PELVIS [facility] Department of Radiology [address] [place] [id number] Patient Name: DIANA CHAMPION : 1955 Sex: F Age: Race: White Pt. Location: Patient Status: D Ordered Date: 12/21/2021 10:45:00 AM Completed Date: 01/06/2022 01:24 PM Requesting Provider: JOO LINN Attending Provider: JOO LINN Report Copy To: Signs & Symptoms: Z96.642 Presence of left artificial hip joint I10 History: [place] Comments: Evaluate Exam: HIP LEFT 1 OR 2 VWS WITH PELVIS HIP LEFT 1 OR 2 VWS WITH PELVIS HISTORY: Hip replacement, follow-up. COMPARISON: None. IMPRESSION: 1. Redemonstrated left hip prosthesis without visible complication. 2. Advanced right hip arthritis without significant change with advanced joint space narrowing. Unchanged lumbosacral fusion hardware. Electronically signed: Joe Matthew. Transcribed by: [email or web address], User Resident: Electronically Signed by: JOE MATTHEW @ 01/09/2022 04:45 PM Normal [facility] Comment on above: Order Comment: Evalu ate Vital Signs Date Time Vital Sign Value Performing Clinician Facility 08-17-2023 09:20-0400 Body height 165.1 cm [facility] Other [facility] Other 08-17-2023 09:20-0400 Body mass index (BMI) [Ratio] 38.1 kg/m2 [facility] Other [facility] Other 08-17-2023 09:20-0400 Body temperature 98.8 [degF] [facility] Other [facility] Other 08-17-2023 09:20-0400 Body weight 103.87 kg [facility] Joana Other [facility] Other 08-17-2023 09:20-0400 Diastolic blood pressure 85 mm[Hg] [facility] Other [facility] Other 08-17-2023 09:20-0400 Respiratory rate 18 /min [facility] Other [facility] Other 08-17-2023 09:20-0400 SaO2% (BldA) [Mass fraction] 94 % [facility] Other [facility] Other 08-17-2023 09:20-0400 Systolic blood pressure 151 mm[Hg] [facility] Other [facility] Other 03-02-2023 10:00-0400 Body height 165.1 cm [facility] Jo[facility] Other [facility] Other 03-02-2023 10:00-0400 Body mass index (BMI) [Ratio] 37.29 kg/m2 [facility] Other [facility] Other 03-02-2023 10:00-0400 Body temperature 98.9 [degF] [facility] Other [facility] Other 03-02-2023 10:00-0400 Body weight 101.65 kg [facility] Joana Other [facility] Other 03-02-2023 10:00-0400 Diastolic blood pressure 76 mm[Hg] [facility] Joana Other [facility] Other 03-02-2023 10:00-0400 Respiratory rate 20 /min [facility] Jo[facility] Other [facility] Other 03-02-2023 10:00-0400 SaO2% (BldA) [Mass fraction] 96 % [facility] Other [facility] Other 03-02-2023 10:00-0400 Systolic blood pressure 136 mm[Hg] [facility] Other [facility] Other 12-08-2022 09:30-0500 Diastolic blood pressure 59 mm[Hg] MD Shaikh Ohara Work Phone: [facility] 12-08-2022 09:30-0500 Heart rate 55 /min MD Shaikh Ohara Work Phone: [facility] 12-08-2022 09:30-0500 Respiratory rate 16 /min MD Shaikh Ohara Work Phone: [facility] 12-08-2022 09:30-0500 SaO2% (BldA) [Mass fraction] 96 % MD Shaikh Ohara Work Phone: [facility] 12-08-2022 09:30-0500 Systolic blood pressure 112 mm[Hg] MD Shaikh Ohara Work Phone: [facility] 12-08-2022 06:54-0500 Body height 162.56 cm MD Shaikh Ohara Work Phone: [facility] 12-08-2022 06:54-0500 Body temperature 98.2 [degF] MD Shaikh Ohara Work Phone: [facility] 12-08-2022 06:54-0500 Body weight 104.32 kg MD Shaikh Ohara Work Phone: [facility] 08-09-2022 11:00-0400 Body height 165.1 cm [facility] Joana Other [facility] Other 08-09-2022 11:00-0400 Body mass index (BMI) [Ratio] 37.87 kg/m2 [facility] Joana Other [facility] Other 08-09-2022 11:00-0400 Body temperature 97.2 [degF] [facility] Joana Other [facility] Other 08-09-2022 11:00-0400 Body weight 103.24 kg Herberth Joana Other [facility] Other 08-09-2022 11:00-0400 Diastolic blood pressure 88 mm[Hg] [facility]berth Joana Other [facility] Other 08-09-2022 11:00-0400 Respiratory rate 20 /min [facility] Joana Other [facility] Other 08-09-2022 11:00-0400 SaO2% (BldA) [Mass fraction] 95 % [facility] Joana Other [facility] Other 08-09-2022 11:00-0400 Systolic blood pressure 133 mm[Hg] [facility] Joana Other [facility] Other 11-17-2021 10:40-0500 Body height 165.1 cm Herberth Joana Other [facility] Other 11-17-2021 10:40-0500 Body mass index (BMI) [Ratio] 37.97 kg/m2 Her[facility] Joana Other [facility] Other 11-17-2021 10:40-0500 Body temperature 97.8 [degF] Herberth Joana Other [facility] Other 11-17-2021 10:40-0500 Body weight 103.51 kg Herberth Joana Other [facility] Other 11-17-2021 10:40-0500 Diastolic blood pressure 70 mm[Hg] Herberth Joana Other [facility] Other 11-17-2021 10:40-0500 Respiratory rate 18 /min [facility] Joana Other [facility] Other 11-17-2021 10:40-0500 SaO2% (BldA) [Mass fraction] 94 % [facility] Joana Other [facility] Other 11-17-2021 10:40-0500 Systolic blood pressure 130 mm[Hg] [facility] Bernard Other [facility] Other 08-30-2021 13:15-0400 Body height 165.1 cm Rena Ginty Other [facility] Other 08-30-2021 13:15-0400 Body mass index (BMI) [Ratio] 36.61 kg/m2 Rena Ginty Other [facility] Other 08-30-2021 13:15-0400 Body temperature 98.7 [degF] Rena Ginty Other [facility] Other 08-30-2021 13:15-0400 Body weight 99.79 kg Rena Ginty Other [facility] Other 08-30-2021 13:15-0400 SaO2% (BldA) [Mass fraction] 90 % Rena Ginty Other [facility] Other Encounters Encounter Date Encounter Type Care [...] End: 10-10-2023 ambulatory Jayshree Vargas MD Facility:[facility] [place] Start: 10-04-2023 End: 10-04-2023 ambulatory SHAIKH EDUARDAWAD Not Available Start: 09-07-2023 End: 09-07-2023 ambulatory Herberth Joana Other [facility] Other Start: 09-07-2023 Telephone encounter Herberth Joana [facility] Start: 08-28-2023 End: 08-28-2023 ambulatory Herberth Joana Other [facility] Other Start: 08-28-2023 Telephone encounter Herberth Joana [facility] Start: 08-21-2023 End: 08-22-2023 ambulatory Jayshree Vargas MD Facility: [place] Start: 08-17-2023 End: 08-17-2023 ambulatory Herberth Joana Other [facility] Other Start: 08-17-2023 Office outpatient visit 25 minutes Herberth Joana [facility] [place] Start: 05-08-2023 End: 05-08[facility]: 04-04-2023 End: 04-04-2023 ambulatory SHAIKH Dimitry OHARA Facility:[facility] Start: 03-24-2023 End: 03-25-[address] STEPH GRANADOS Facility:[facility] Start: 03-23-2023 ambulatory JOO LINN [facility] Start: 03-02-2023 End: 03-02-2023 ambulatory Herberth Joana Other [facility] Other Start: 03-02-2023 Office outpatient visit 25 minutes Herberth Joana [facility] [place] Start: 02-25-2023 End: 02-26-2023 ambulatory HERBERTH JOANA Facility:[facility] Start: 02-22-2023 End: 02-23-2023 ambulatory BO Rendon Facility:[facility] Start: 12-15-2022 End: 12-16-[address] JACK HALL . Facility:[facility] Start: 12-08-2022 End: 12-08-2022 ambulatory Shaikh Lev Facility:[facility] Start: 12-08-2022 End: 12-08-2022 Admission to same day surgery center MD Shaikh Ohara Work Phone: [facility] Work Phone: Start: 12-08-2022 End: 12-08-2022 ambulatory MD Shaikh Ohara Work Phone: [facility] Work Phone: Start: 11-11-2022 End: 11-11-[address] JACK HALL . Facility:[facility] Start: 11-09-2022 End: 11-09-2022 ambulatory Azkatherine Gonzalezs Other [facility] Other Start: 11-09-2022 Telephone encounter Azkatherine Gonzalezs [facility] Start: 08-19-2022 End: 08-20-2022 ambulatory HERBERTH JOANA Facility:[facility] Start: 08-09-2022 End: 08-09-2022 ambulatory Herberth Joana Other [facility] Other Start: 08-09-2022 Office outpatient visit 10 minutes Herberth Joana [facility] Start: 08-09-2022 Telephone encounter Herberth Joana [facility] Start: 08-05-2022 Telephone encounter Herberth Joana [facility] Start: 08-05-2022 End: 08-06-2022 ambulatory HERBERTH JOANA [facility] Other Start: 07-08-2022 End: 07-08-2022 ambulatory Gato Domingo Other [facility] Other Start: 07-08-2022 Telephone encounter Gato Cesar [facility] Start: 07-05-2022 End: 07-06-2022 ambulatory SHAIKH Dimitry OHARA Facility:[facility] Start: 06-08-2022 End: 06-09-2022 ambulatory SAUNDERS H FAJavonWAD Facility:[facility] Start: 06-07-2022 End: 06-07-2022 ambulatory SAUNDERS H FAJavonWAD Facility:[facility] Start: 01-24-2022 End: 01-25-2022 ambulatory PHYSICIAN UNKNOWN Facility:[facility] Start: 11-17-2021 End: 11-17-2021 ambulatory Herberth Joana Other [facility] Other Start: 11-17-2021 Office outpatient visit 15 minutes Herberth Joana [facility] Start: 08-30-2021 Office outpatient visit 15 minutes Rena Vannessa [facility] [place] Start: 09-11-2020 End: 09-11-2020 Chart abstracting Miguelito Buck Work Phone: Hematology/Oncology Start: 09-11-2020 End: 09-11-2020 Patient encounter procedure External Provider [facility] Start: 09-11-2020 Results Only External Provider [facility] Start: 09-30-2019 End: 09-30-2019 Patient encounter procedure [facility] [place] Start: 07-07-2017 End: 07-07-2017 Admission to day surgery [facility] Start: 05-24-2004 Evaluation and management of inpatient [facility] [place] Start: 04-26-2004 Evaluation and management of inpatient [facility] [place] Procedures Date Procedure Procedure Detail Performing Clinician Start: 12-08-2022 Colonoscopy MD Shaikh Ohara Work Phone: Start: 09-11-2020 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 Director Of Scientific Research al Provider Start: 09-11-2020 EXTERNAL LAB External P rovider Start: 09-11-2020 EXTERNAL PROCEDURE Exte rnal Provider Start: 09-30-2019 Ultrasonography of b ilateral kidneys Steph Collier Plan of Treatment Date Care Activity Detail Author Start: 12-08-2022 [facility] Start: 07-07-2020 Influenza vaccination INFLUENZA (#1) [facility] Start: 2006 SHINGRIX VACCINE (1 of 2) SHINGRIX VACCINE (1 of 2) [facility] Start: 2006 Tuberculosis screening COLORECTAL CANCER SCREENING,SEE MODIFIER [facility] Start: 2001 DIABETES SCREEN DIABETES SCREEN [facility] Start: 2001 LIPID SCREEN LIPID SCREEN [facility] Start: 1996 Mammography MAMMOGRAM [facility] Start: 1986 HPV TESTING HPV TESTING [facility] Start: 1977 PAP TESTING PAP TESTING [facility] Start: 1975 Urine microalbumin profile DTAP,TDAP,TD (1 - Tdap) [facility] Start: 1974 HEPATITIS C SCREENING HEPATITIS C SCREENING [facility] Start: 1974 HIV SCREENING HIV SCREENING [facility] Patient Education Colon Polypect shahram Hemorrhoids (DC) Diverticulosis (DC) [facility] Work Phone[facility] Immunizations Immunization Date Immunization Notes Care Provider Henrietta charles 07-18-2018 Depo-Medrol 40 mg Rena Gint y Other [facility] Other 01-31-2018 Depo-Medrol 40 mg Rena Gint y Other [facility] Other 08-09-2017 influenza, seasonal, injectable, preservative free Rena Ginty Other [facility] Other Payers Date Payer Category Payer Unknown 2022 Self-pay [id number] 2021 Medicare [id number] 2020 Medicaid [id number] 2019 Medicaid MEDICAID [facility] MEDICAID [id number] 2019-Present Medicaid [id number] 2016 Medicare MEDICARE MEDICAR E A AND B [id number] 2016-Present [place] [id number] 1959 Unknown [id number] 1956 Unknown [id number] 2.16.840.1.512987.3.579.2.647 1956 Unknown [id number] 2.16.840.1.948060.3.579.2.593 1956 Unknown [id number] 2.16.840.1.348708.3.579.2.593 1956 Unknown [id number] 2.16.840.1.774608.3.579.2.593 1956 Unknown [id number] 2.16.840.1.790959.3.579.2.593 1956 Unknown [id number] 2.16.840.1.275893.3.579.2.593 1956 Unknown [id number] 2.16.840.1.242553.3.579.2.593 1956 Unknown [id number] 2.16.840.1.655226.3.579.2.593 1956 Unknown [id number] 2.16.840.1.264927.3.579.2.593 1956 Unknown [id number] 2.16.840.1.672641.3.579.2.593 1956 Unknown [id number] 2.16.840.1.230861.3.579.2.593 1956 Unknown [id number] 2.16.840.1.287738.3.579.2.593 1956 Unknown [id number] 2.16.840.1.592485.3.579.2.196 1956 Unknown [id number] 2.16.840.1.840918.3.579.2.196 1956 Unknown [id number] 2.16.840.1.708571.3.579.2.196 1956 Unknown [id number] 2.16.840.1.627476.3.579.2.196 1956 Unknown [id number] 2.16.840.1.571581.3.579.2.1259 1956 Unknown [id number] 2.16.840.1.967791.3.579.2.1259 1956 Unknown [id number] 2.16.840.1.555339.3.579.2.1259 1956 Unknown [id number] 2.16.840.1.207715.3.579.2.1259 Medicare [id number] Unknown HCAP/HFA/FAP Active [id number] Unknown [id number] 2.16.840.1.753975.3.579.2.531 Social History Date Type Detail Facility Tobacco smoking stat us [facility] Unknown if ever smoked [facility] Start: 1955 Sex Assigned At Female F [facility] Start: 09-11-2020 End: 12-08-2022 Tobacco smoking status NEIS Never smoker [facility] Start: 09-11-2020 Tobacco use and exposure Never used [facility] Start: 09-11-2020 Alcohol intake Lifetime non-d my (finding) [facility] Start: 09-11-2020 History SDOH Alcohol Frequency 1 [facility] Other Goals Date Patient Goal Desired Activity /State Clinical Notes 08-30-2021 to 09-07-2023 Note Date & Type Note Facility 09-07-2023 Evaluation note Encounter Date Diagnosis Assessment Notes Sep, Hypomagnesemia (ICD-10 - E83.42) [facility] Other 10-23-2023 Evaluation note* Encounter Date Diagnosis Assessment Notes Treatment Notes Treatment Clinical Notes Aug, 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 Continue oral Magnesium [facility] Note Chief Complaint: Patient here for 1 year follow up CAD and hypertension. She was recently discharged from [facility] for Covid-19. She says hydrochlorothiazide was [...] breath since then. She has seen her thermospray operator. Her chest pain is noncardiac. She has no other cardiac complaints. Cardiology ROS: Review of Systems Cardiovascular: Positive for chest pain and dyspnea on exertion. Respiratory: Positive for wheezing. Musculoskeletal: Positive for arthritis, back pain, joint pain and myalgias. Neurological: Positive for light-headedness. All other systems reviewed and are negative. Past Medical History She has a past medical history of Cancer ([facility]) and Hypertension. Surgical History She has a [...] 325 mg by mouth., Disp: , Rfl: hklkoznpnwo-xhhwedwrx-dfysyuen 100-62.5-25 mcg blister with device, , Disp: [...] CTAB, no increased eff (more content not included)...[facility]05-19-2023 NotePROCEDURE: XR HIP RT 2 3V W PELVIS HISTORY: Pain in right hip joint , chronic COMPARISON: XR L-spine 02/26/2019, XR left hip with pelvis 03/11/2017 FINDINGS: BONES:Complete loss of the right hip joint space with xnoj-kp-ytpq articulation, subchondral sclerosis and cysts, and large periarticular degenerative osteophytes. No fracture or dislocation. Left hip replacement. Mechanical fusion of L5-S1 and moderate dextroscoliosis of lumbar spine. SOFT TISSUES:No visible soft tissue swelling. EFFUSION:None visible. OTHER: Negative. IMPRESSION: 1. Marked degenerative joint disease of the right hip; progressed since prior study. 2. Stable surgical changes. Electronically authenticated by: STEPH GRANADOS Date: 2023-03-24 12:55[facility]05[facility]18[facility]2023 NoteSubjective 03/23/23 Diana Champion is a 67 [...] LIGATION Past Medical History: Diagnosis Date Cancer ([facility]) Hypertension Objective General: Body mass index is [...] from the patient's PCP as well as thermospray operator for a right anterior total hip arthroplasty. [...] may be an additional personal documentation from me.[facility]04-27-2023 Evaluation note* Encounter Date Diagnosis Assessment [...] PPI induced GI losses. Continue oral Magnesium [facility] Encounter Date Diagnosis Assessment Notes Treatment Notes Treatment Clinical Notes Nov, Hypokalemia (ICD-10 - E87.6) Nov, Hypomagnesemia (ICD-10 - E83.42) [facility] Other 10-04-2022 Evaluation note* Encounter Date Diagnosis [...] office does not accept her new insurance. [facility] Other 09-02-2022 Evaluation note* Encounter Date Diagnosis Assessment Notes Treatment Notes Treatment Clinical Notes Jul, History of colon cancer (ICD-10 - Z85.038) [facility] Other 01-12-2022 Evaluation note* Encounter Date Diagnosis [...] potassium wasting. I have prescribed oral potassium. [facility] Other 10-25-2021 Evaluation note* Encounter Date Diagnosis [...] Patient care instructions given in writting by [facility] At Home document [facility] Other Evaluation noteNo InformationNort POINT 3 Basketball Other Evaluation note* Diagnosis Onset Date Resolution Status History of colon cancer [facility] Work Phone: [facility] Narrative - Reported* Type Description Date [...] IN 08/2019 Hospitalization History HIP REVISION 03/2020 [facility] Other [facility] Narrative - Reported* Type Description Date [...] Hospitalization History COVID X 2 WEEKS 04/2023 [facility] Other Hospital Discharge instructions Additional Instructions DISCHARGE [...] if you have any problems. -Office number [phone] Work Phone: Advance Directives No Advanced [...] or prosecute any alcohol or drug abuse patient.[facility] Hospital[facility] the event this information is protected by the Federal Confidentiality of Alcohol and Drug Abuse Patient Records regulations: The Federal rules restrict any use of the information to criminally investigate or prosecute any alcohol or drug abuse patient.[facility] HospitalIn the event this information is protected by the Federal Confidentiality of Alcohol and Drug Abuse Patient Records regulations: The Federal rules restrict any use of the information to criminally investigate or prosecute any alcohol or drug abuse patient.[facility] HospitalIn the event this information is protected by the Federal Confidentiality of Alcohol and Drug Abuse Patient Records regulations: The Federal rules restrict any use of the information to criminally investigate or prosecute any alcohol or drug abuse patient.[facility] INFORMATION SOURCE (unrecogn ized section and content) DATE CREATED AUTHOR 03/03/2022 [facility] DATE CREATED AUTHOR AUTHOR'S ORGANIZ ATION 04/17/2023 [facility] DATE CREATED AUTHOR AUTHOR'S ORGANIZ ATION 05/08/2023 [facility] DATE CREATED AUTHOR AUTHOR'S ORGANIZ ATION 06/07/2023 [facility] DATE CREATED AUTHOR AUTHOR'S ORGANIZ ATION 12/24/2023 [facility] DATE CREATED AUTHOR AUTHOR'S ORGANIZ ATION 01/05/[address] [facility] d[facility] Specialists EPIC REASON FOR VISIT [...] BE BASED ON THE PRIMARY CLINICAL RECORDS. [facility]. provides no warranty or guarantee of the accuracy or completeness of information in this document.
[2024-01-21] MEDS: MORPHINE SULFATE 4 MG/ML VIAL 10 MG IM (12:31)
[2024-01-21 12:39] VITALS: BP 138/87; PULSE 88; RESP 16; O2SAT 96
== END 2024-01-21 12:40 | disposition home or self-care (01) ==
PROVIDERS: Emergency Provider Emergency Medicine; PCP Internal Medicine
DX: M54.50 Low back pain, unspecified (principal); G89.29 Other chronic pain; I25.10 Atherosclerotic heart disease of native coronary artery without angina pectoris; I11.0 Hypertensive heart disease with heart failure; I50.32 Chronic diastolic (congestive) heart failure; F32.A Depression, unspecified; J44.9 Chronic obstructive pulmonary disease, unspecified; Z79.899 Other long term (current) drug therapy; Z98.1 Arthrodesis status
CPT/HCPCS: 96372; 99284

== ENCOUNTER 2024-01-25 12:41 | Outpatient (OUT) | payer OTHER, SELFPAY ==
--- NOTE | 2024-01-25 12:58 | XR_ITS ---
[address] [address] Patient Name: JHONATAN MONTOYA MRN: [facility]:[id number] date: 1955 Sex: F Assigned Patient Location: [facility] Current Patient Location: Accession/Order Number: [id number] Exam Date: 01/25/2024 12:50 Report Date: 01/26/2024 07:39 At the request of: SHAIKH LUCITA Procedure: XR lumbar spine 2-3V EXAMINATION: XR lumbar spine 2-3V HISTORY: Chronic Bilateral Low Back Pain M54.50 COMPARISON: XR lumbar spine 06/30/2023 FINDINGS: BONES: Posterior mechanical fusion L5-S1 via bilateral pedicle screws and rods; no appreciable hardware fracture or loosening. Mild right convex curvature of lumbar spine. Grade 1 retrolisthesis of L1 on 2; unchanged. Moderate degenerative facet arthropathy throughout the lumbar spine. DISC SPACES: Intervertebral disc spacer L5-S1. Multilevel mild narrowing. PARASPINOUS: Negative. No paraspinous abnormality is seen. OTHER: Negative. XR/XR lumbar spine 2-3V IMPRESSION: 1. No appreciable acute abnormality. 2. Stable surgical changes without evidence of hardware failure. 3. Moderate degenerative changes of lumbar spine; grossly stable. Electronically authenticated by: STEPH GRANADOS Date: 01/26/2024 07:39
== END 2024-01-25 12:42 | disposition home or self-care (01) ==
LOC: RAD 12:43
PROVIDERS: PCP Internal Medicine; Visit Provider Internal Medicine
DX: M54.50 Low back pain, unspecified (principal); G89.29 Other chronic pain
CPT/HCPCS: 72100

== ENCOUNTER 2024-02-03 09:45 | Inpatient (IN) | payer OTHER, SELFPAY ==
[2024-02-03] VITALS (59 sets, daily range): BP systolic 107–128; BP diastolic 51–76; PULSE 63–91; TEMP 36.4–37.4; O2SAT 88–96; BMI 43.1; BMI 41.4
--- NOTE | 2024-02-03 08:57 | ECG_ITS ---
[facility] Test Date: 2024-02-03 Pat Name: JHONATAN MONTOYA Department: Room: - Gender: Female Resident Services Coordinator: : 1955 Requested By: SHAIKH LUCITA Order Number: [id number] Reading MD: MINERVA GERBER Measurements Intervals [place] Rate: 84 P: 46 LA: 148 QRS: 55 QRSD: 102 T: 232 QT: 300 QTc: 341 Interpretive Statements 1100 Sinus rhythm [address] depression [address] & [place] abnormality 8102 Low QRS voltage in chest leads 8305 Short QTc interval 9150 abnormal ECG Electronically Signed On 02-04-2024 7:24:40 EDT by MINERVA GERBER
--- NOTE | 2024-02-03 08:58 | XR_ITS ---
The [address] [address] Patient Name: JHONATAN MONTOYA MRN: [id number] date: 1955 Sex: F Assigned Patient Location: ED.MAIN Current Patient Location: ER Accession/Order Number: [id number] Exam Date: 02/03/2024 09:15 Report Date: 02/03/2024 09:41 At the request of: SUSAN RODRIGUEZ Procedure: XR chest 1V EXAM: XR chest 1V HISTORY: sob COMPARISON: Chest x-ray 11/28/[address] 11/25/2023. TECHNIQUE: Portable AP upright chest x-ray. FINDINGS: Right lung is well visualized clear. Left upper and mid lung clear. Poor visualization of left lung base retrocardiac area due to overlying soft tissues and patient size/body habitus. Cardiomediastinal contours prominent but unchanged. No pleural effusion. No pneumothorax. XR/XR chest 1V IMPRESSION: No definite acute findings seen although there is poor visualization of the left lung base retrocardiac area. The abnormal lung density seen on earlier chest x-ray and CT appear to have cleared elsewhere. Electronically authenticated by: BARBARA TILLMAN Date: 02/03/2024 09:41
--- NOTE | 2024-02-03 09:05 | ED_ITS ---
HPI - SOB/Dyspnea General Chief Complaint: Shortness of Breath/Dyspnea Stated Complaint: GENERAL WEAKNESS Time Seen by Provider: 02/03/24 09:56 Source: patient Mode of arrival: ambulance Limitations: no limitations History of Present Illness HPI Narrative: Patient presenting to us with few days history of generalized weakness associated with a cough , the patient also had this lesion on her left buttock area that wants that to be checked that she had for 2 weeks. The patient denies any exposure to anybody with similar symptoms she have a cough productive she also have shortness of breath at rest. She is denying any other complaints except for the generalized weakness of her upper lower extremity. Both sides equally Related Data Home Medications ?Medication ?Instructions ?Recorded ?Confirmed albuterol sulfate 90 mcg/actuation 2 puff inhalation Q4H PRN 04/10/23 02/03/24 aerosol inhaler shortness of breath or wheezing fluticasone fur. 200 mcg-umeclid 1 inh inhalation Q24H COPD 04/10/23 02/03/24 62.5 mcg-vilant 25 mcg inhalat.powder (Trelegy Ellipta) magnesium oxide 400 mg (241.3 mg 400 mg PO DAILY 04/10/23 02/03/24 magnesium) tablet omeprazole 20 mg capsule,delayed 20 mg PO BID 04/10/23 02/03/24 release losartan 50 mg tablet (Cozaar) 50 mg PO BID 08/21/23 02/03/24 alendronate 35 mg tablet 35 mg PO .weekly 09/14/23 02/03/24 montelukast 10 mg tablet 10 mg PO DAILY 09/14/23 02/03/24 pramipexole 0.25 mg tablet 0.25 mg PO QPM 09/14/23 02/03/24 (Mirapex) amlodipine 5 mg tablet 5 mg PO QDAY 11/25/23 02/03/24 cholecalciferol (vitamin D3) 25 25 mcg PO QDAY 11/25/23 02/03/24 mcg (1,000 unit) tablet paroxetine HCl 30 mg tablet 30 mg PO QDAY 11/25/23 02/03/24 pregabalin 75 mg capsule 75 mg PO BID 11/25/23 02/03/24 sodium chloride 0.9 % for 3 ml inhalation Q8H 11/25/23 02/03/24 nebulization solifenacin 10 mg tablet 10 mg PO QDAY 11/25/23 02/03/24 trazodone 100 mg tablet 100 mg PO .qhs 11/25/23 02/03/24 tramadol 50 mg tablet 50 mg PO BID PRN pain 01/30/24 02/03/24 acetaminophen 300 mg-codeine 30 mg tab 02/03/24 tablet albuterol sulfate 2.5 mg/3 mL 1.25 mg inhalation Q6H PRN 02/03/24 02/03/24 (0.083 %) solution for nebulization shortness of breath or wheezing baclofen 10 mg tablet 10 mg PO Q8H 02/03/24 02/03/24 oxycodone 5 mg tablet 5 mg PO Q6H PRN pain 02/03/24 02/03/24 Previous Rx's ?Medication ?Instructions ?Recorded ipratropium 0.5 mg-albuterol 3 mg 3 ml inhalation Q6H PRN shortness 04/22/23 (2.5 mg base)/3 mL nebulization of breath or wheezing #90 mL soln guaifenesin 600 mg tablet, 600 mg PO BID 10 days #20 tabs 12/02/23 extended release 12 hr (Mucus Relief ER) Allergies Allergy/AdvReac Type Severity Reaction Status Date / Time No Known Drug Allergies Allergy Verified 12/18/23 07:25 Review of Systems ROS Status of ROS 10 or more systems reviewed and unremark able except as noted in history and below [facility] Medical History (Updated 02/03/24 @ 12:10 by Tere Barriga MD) CAD (coronary artery disease) ?I25.10 - Atherosclerotic heart disease of [place] coronary artery without angina pectoris (ICD-10) Chronic heart failure with preserved ejection fraction (HFpEF) ?I50.32 - Chronic diastolic (congestive) heart failure (ICD-10) Hypertension ?I10 - Essential (primary) hypertension (ICD-10) Myofascial pain ?M79.18 - Myalgia, other site (ICD-10) Greater trochanteric bursitis ?M70.60 - Trochanteric bursitis, unspecified hip (ICD-10) Osteoarthritis of right hip ?M16.11 - Unilateral primary osteoarthritis, right hip (ICD-10) Lumbar spondylosis ?M47.816 - Spondylosis without myelopathy or radiculopathy, lumbar region (ICD-10) Lumbar postlaminectomy syndrome ?M96.1 - Postlaminectomy syndrome, not elsewhere classified (ICD-10) Lumbar stenosis with neurogenic claudication ?M48.062 - Spinal stenosis, lumbar region with neurogenic claudication (ICD- 10) Depression ?F32.A - Depression, unspecified (ICD-10) Chronic low back pain ?M54.50 - Low back pain, unspecified (ICD-10) ?G89.29 - Other chronic pain (ICD-10) Hypoxia ?R09.02 - Hypoxemia (ICD-10) Heart murmur ?R01.1 - Cardiac murmur, unspecified (ICD-10) Chronic obstructive pulmonary disease ?J44.9 - Chronic obstructive pulmonary disease, unspecified (ICD-10) Asthma ?J45.909 - Unspecified asthma, uncomplicated (ICD-10) Surgical History (Updated 01/30/24 @ 14:10 by Marge Burch) Status post hip surgery ?Z98.890 - Other specified postprocedural states (ICD-10) H/O foot surgery ?Z98.890 - Other specified postprocedural states (ICD-10) H/O tubal ligation ?Z98.51 - Tubal ligation status (ICD-10) History of lumbar fusion ?Z98.1 - Arthrodesis status (ICD-10) Social History Smoking status: Never smoker Highest level of school completed/degree received: Associate degree: occupational, technical, vocational program Do you think of yourself as: straight/heterosexual Gender Identity: female Exam Narrative Exam Narrative: Nurses notes and vital signs reviewed and patient is not hypoxic. General: Well-appearing and in no apparent distress. Skin: Warm, dry, no pallor noted. No rash. Head: Normocephalic, atraumatic. Neck: Supple, non-tender. Eye: Pupils are equal, round and EOMI. No scleral icterus. Ears, Nose, Mouth, and Throat: TM are clear, no nasal mucosal hypertrophy. Oral mucosa is moist, no posterior oropharynx erythema, uvula is mid-line Cardiovascular: Regular Rate and Rhythm without murmur, gallop or rub. Respiratory: The patient have bilateral rhonchi in both lung [place] with a wet cough. Back: No midline thoracic or lumbar vertebral tenderness. No CVA tenderness Musculoskeletal: normal ROM, no calf or popliteal tenderness, no lower extremity edema/swelling GI: Abdomen is soft, non-distended. Normal bowel sounds. No masses appreciated. No tenderness to palpation. No rebound, guarding, or rigidity noted. Neurological: A&O x4. No cranial nerve dysfunction observed. No truncal ataxia. Moves all extremities. Sensation intact. Psychiatric: Cooperative and interactive. Normal mood and affect. On the posterior aspect of the buttock area the patient have a skin tag almost 1 cm surrounded by redness no signs of infection. The redness is almost less than 1 cm with no induration Constitutional Vital Signs, click to edit/add: Last Vital Signs Temp 99.4 F 02/03/24 09:00 Pulse 80 02/03/24 09:40 Resp 18 02/03/24 09:00 BP 115/68 02/03/24 09:00 Pulse Ox 96 02/03/24 09:40 O2 Del Method Room Air 02/03/24 09:00 O2 Flow Rate 3 02/03/24 09:40 Course Vital Signs Vital signs: Vital Signs Temperature 99.4 F 02/03/24 09:00 Pulse Rate 85 02/03/24 09:00 Respiratory Rate 18 02/03/24 09:00 Blood Pressure 115/68 02/03/24 09:00 Pulse Oximetry 88 L 02/03/24 09:00 Oxygen Delivery Method Room Air 02/03/24 09:00 Temperature 99.4 F 02/03/24 09:00 Pulse Rate 80 02/03/24 09:40 Respiratory Rate 18 02/03/24 09:00 Blood Pressure 115/68 02/03/24 09:00 Pulse Oximetry 96 02/03/24 09:40 Oxygen Delivery Method Room Air 02/03/24 09:00 Oxygen Delivery Flow Rate 3 02/03/24 09:40 MDM - SOB/Dyspnea MDM Narrative Medical decision making narrative: EKG showing sinus rhythm with a heart rate of [address] elevation or depression. X-ray showed no acute pathology CBC shows leukocytosis and the patient chemistry showing hypokalemia and hypomagnesemia that was replaced The patient received Solu-Medrol and breathing treatment after which she was feeling some improvement The patient will be admitted to the hospital for further treatment of her possible COPD exacerbation versus pneumonia in addition to the hypokalemia and hypomagnesemia Her generalized weakness is mostly secondary to the above metabolic reasons and hypomagnesium and hypokalemia The patient case was discussed with Dr. Zepeda and he agreed on admission Lab Data Labs: Lab Results 02/03/24 02/03/24 Range/Units 09:15 09:16 WBC 19.2 H (4.0-11.0) 10^3/uL RBC 3.70 L (4.20-5.40) 10^6/uL Hgb 11.4 L (12.0-16.0) g/dL Hct 35.8 L (36.0-48.0) % MCV 96.8 (81.0-99.0) fL MCH 30.8 (26.7-34.0) pg MCHC 31.8 (29.9-35.2) g/dL RDW 14.0 (11.0-15.0) % Plt Count 233 (150-450) 10^3/uL MPV 8.9 L (9.5-13.5) fL Neut % (Auto) 82.5 H (43.0-75.0) % Lymph % (Auto) 9.9 L (20.5-60.0) % Howell % (Auto) 6.3 (1.7-12.0) % Eos % (Auto) 0.2 L (0.9-7.0) % Baso % (Auto) 0.4 (0.2-2.0) % Neut # (Auto) 15.8 H (1.4-6.5) 10^3/uL Lymph # (Auto) 1.9 (1.2-3.8) 10^3/uL Howell # (Auto) 1.2 H (0.3-0.8) 10^3/uL Eos # (Auto) 0.0 (0.0-0.7) 10^3/uL Baso # (Auto) 0.1 (0.0-0.1) 10^3/uL Abs Immat Gran (auto) 0.13 H (0.00-0.03) 10^3/uL Imm/Tot Granulo (auto) 0.7 H (0.0-0.5) % PT 11.9 H (9.0-11.6) sec INR 1.13 Sodium 141 (136-145) mmol/L Potassium 3.4 L (3.5-5.1) mmol/L Chloride 101 (98-107) mmol/L Carbon Dioxide 29.5 (21.0-32.0) mmol/L Anion Gap 13.9 BUN 10.0 (7.0-18.0) mg/dL Creatinine 1.21 H (0.55-1.02) mg/dL Est GFR ( Amer) 54 L (>=60) Est GFR (Non-Af Amer) 44 L (>=60) BUN/Creatinine Ratio 8.3 Glucose 127 H (74-106) mg/dL Lactate 1.9 (0.4-2.0) mmol/L Calcium 8.0 L (8.5-10.1) mg/dL Magnesium 1.6 L (1.8-2.4) mg/dL Total Bilirubin 0.6 (0.2-1.0) mg/dL AST 13 L (15-37) U/L ALT 17 (14-59) U/L Alkaline Phosphatase 108 (46-116) U/L Troponin I High Sens 18.7 (4.0-51.3) pg/mL Total Protein 6.3 L (6.4-8.2) g/dL Albumin 2.3 L (3.4-5.0) g/dL Globulin 4.0 g/dL Albumin/Globulin Ratio 0.6 Adenovirus (PCR) Not detected (NOT DETECTE) C. pneumoniae DNA (PCR) Not detected (NOT DETECTE) Coronavirus Type OC43 Not detected (NOT DETECTE) Coronavirus Type HKU1 Not detected (NOT DETECTE) Coronavirus Type 229E Not detected (NOT DETECTE) Coronavirus Type NL63 Not detected (NOT DETECTE) Human Metapneumovir PCR Not detected (NOT DETECTE) M. pneumoniae (PCR) Not detected (NOT DETECTE) Parainfluenza PCR Not detected (NOT DETECTE) Parainfluenza 2 (PCR) Not detected (NOT DETECTE) Parainfluenza 3 (PCR) Not detected (NOT DETECTE) Parainfluenza 4 (PCR) Not detected (NOT DETECTE) RSV (RT-PCR) Not detected (NOT DETECTE) Entero/Rhino (PCR) Not detected (NOT DETECTE) SARS-CoV-2 (PCR) Not detected (NOT DETECTE) Bordetella pertussis (PCR) Not detected (NOT DETECTE) B parapertussis DNA PCR Not detected (NOT DETECTE) Influenza Type A (PCR) Not detected (NOT DETECTE) Influenza Type B (PCR) Not detected (NOT DETECTE) Discharge Plan Discharge Chief Complaint: Shortness of Breath/Dyspnea Clinical Impression: Acute exacerbation of chronic obstructive pulmonary disease, Acute hypokalemia, Hypomagnesemia Pneumonia Qualifiers: Pneumonia type: due to unspecified organism Laterality: unspecified laterality Lung location: unspecified part of lung Qualified Code(s): J18.9 - Pneumonia, unspecified organism Prescriptions / Home Meds: No Action tramadol 50 mg tablet 50 mg PO BID PRN (Reason: pain) magnesium oxide 400 mg (241.3 mg magnesium) tablet 400 mg PO DAILY Rx Instructions: WITH FOOD omeprazole 20 mg capsule,delayed release(DR/EC) 20 mg PO BID albuterol sulfate 90 mcg/actuation HFA aerosol inhaler 2 puff INHALATION Q4H PRN (Reason: shortness of breath or wheezing) Trelegy Ellipta 200-62.5-25 mcg blister with device 1 inh INHALATION Q24H ipratropium-albuterol 0.5 mg-3 mg(2.5 mg base)/3 mL solution for nebulization 3 ml inhalation Q6H PRN (Reason: shortness of breath or wheezing) Qty: 90 0RF losartan [Cozaar] 50 mg tablet 50 mg PO BID Hold Instructions: unknown alendronate 35 mg tablet 35 mg PO .weekly pramipexole [Mirapex] 0.25 mg tablet 0.25 mg PO QPM Rx Instructions: administer 2 - 3 hours before bedtime montelukast 10 mg tablet 10 mg PO DAILY amlodipine 5 mg tablet 5 mg PO QDAY cholecalciferol (vitamin D3) 25 mcg (1,000 unit) tablet 25 mcg PO QDAY paroxetine HCl 30 mg tablet 30 mg PO QDAY pregabalin 75 mg capsule 75 mg PO BID sodium chloride 0.9 % solution for nebulization 3 ml INHALATION Q8H solifenacin 10 mg tablet 10 mg PO QDAY trazodone 100 mg tablet 100 mg PO .qhs guaifenesin [Mucus Relief ER] 600 mg Tablet Extended Release 12hr 600 mg PO BID 10 Days Qty: 20 0RF acetaminophen-codeine 300-30 mg tablet albuterol sulfate 2.5 mg /3 mL (0.083 %) solution for nebulization 1.25 mg inhalation Q6H PRN (Reason: shortness of breath or wheezing) baclofen 10 mg tablet 10 mg PO Q8H oxycodone 5 mg tablet 5 mg PO Q6H PRN (Reason: pain) Print Language: [place]i Referrals: Shaikh Ohara MD [Primary Care Provider] - 1 week
[2024-02-03 09:21] LABS: Adenovirus NOT DETECTED (NOT DETECTE); Bordetella parapertussis NOT DETECTED (NOT DETECTE); Coronavirus 229E NOT DETECTED (NOT DETECTE); Coronavirus HKU1 NOT DETECTED (NOT DETECTE); Coronavirus NL63 NOT DETECTED (NOT DETECTE); Coronavirus OC43 NOT DETECTED (NOT DETECTE); Human Metapneumovirus NOT DETECTED (NOT DETECTE); Human Rhinovirus/Enterovirus NOT DETECTED (NOT DETECTE); Influenza A NOT DETECTED (NOT DETECTE); Influenza B NOT DETECTED (NOT DETECTE); Mycoplasma pneumoniae NOT DETECTED (NOT DETECTE); Parainfluenza Virus 1 NOT DETECTED (NOT DETECTE); Parainfluenza Virus 2 NOT DETECTED (NOT DETECTE); Parainfluenza Virus 3 NOT DETECTED (NOT DETECTE); Parainfluenza Virus 4 NOT DETECTED (NOT DETECTE); Respiratory Syncytial Virus NOT DETECTED (NOT DETECTE); SARS-CoV-2 NOT DETECTED (NOT DETECTE)
[2024-02-03 09:25] LABS: Basophils Absolute Auto 0.1 10^3/uL (0.0-0.1); Basophils Percent Auto 0.4 % (0.2-2.0); Eosinophils Percent Auto 0.2 % (0.9-7.0); Hematocrit 35.8 % (36.0-48.0); Hemoglobin 11.4 g/dL (12.0-16.0); Immature Granulocytes Abs Auto 0.13 10^3/uL (0.00-0.03); Immature Granulocytes Pct Auto 0.7 % (0.0-0.5); Lymphocytes Absolute Auto 1.9 10^3/uL (1.2-3.8); Lymphocytes Percent Auto 9.9 % (20.5-60.0); Mean Corpuscular HGB Conc 31.8 g/dL (29.9-35.2); Mean Corpuscular Hemoglobin 30.8 pg (26.7-34.0); Mean Corpuscular Volume 96.8 fL (81.0-99.0); Mean Platelet Volume 8.9 fL (9.5-13.5); Monocytes Absolute Auto 1.2 10^3/uL (0.3-0.8); Monocytes Percent Auto 6.3 % (1.7-12.0); Neutrophils Absolute Auto 15.8 10^3/uL (1.4-6.5); Neutrophils Percent Auto 82.5 % (43.0-75.0); Platelet Count 233 10^3/uL (150-450); White Blood Count 19.2 10^3/uL (4.0-11.0)
[2024-02-03] MEDS: METHYLPREDNISOLONE SOD SUCC PF 125 MG/2 ML VIAL IVP ×3 (09:25→22:53)
[2024-02-03 09:38] LABS: INR 1.13; Magnesium 1.6 mg/dL (1.8-2.4); Prothrombin Time 11.9 sec (9.0-11.6)
[2024-02-03] MEDS: IPRATROPIUM/ALBUTEROL SULFATE 3 ML AMPUL.NEB IH ×3 (09:39→23:37)
[2024-02-03 09:46] LABS: Lactate/Lactic Acid 1.9 mmol/L (0.4-2.0)
--- OUTSIDE RECORDS SUMMARY | 2024-02-03 09:49 | XMS_ITS | CCD ---
Author Organization [facility] Care Team Providers Care Production Operations Inspector Name Role Phone Steph Collier Attending Provider Unavailable Chantel Rainey Primary Care Provider Unavailabl e Joana, Herberth Attending Provider Unavailable Unavailable Primary Care Provider Unavailabl e UNKNOWN, PHYSICIAN Referring Unavailable JOO LINN Attending Unavailable JOO LINN Admitting Unavailable UNKNOWN, PHYSICIAN Primary Care Unavailable Rena Hurd Unavailable Joana, Hebrerth Unavailable Gato Domingo Unavailable Steph Collier Attending Provider MD Gato Domingo Attending Provider [phone] MD Nicky Ohara Primary Care Provider Gilma Trent Unavailable JOANA, HERBERTH Attending Unavailable JOANA, HERBERTH Admitting Unavailable FAWWAD, SAUNDERS H Primary Care Unavailable JOANA, HERBERTH Consulting Unavailable SAMSA .BO Admitting Unavailable FAWWAD, SAUNDERS H Primary Care Unavailable FAWWAD, SAUNDERS H Consulting Unavailable JOHNY .BO Attending Unavailable BRITTANY GALDAMEZ Consulting Unavailable KARASIK ., DR SANTIAGO Admitting Unavailabl e KARASIK ., DR SANTIAGO Attending Unavailabl e KARASIK ., DR SANTIAGO Consulting Unavailabl e FAWWAD, SAUNDERS H Primary Care Unavailable ATKA, DR BRITTANY Elizondo Consulting Unavailable ZIEBBETH, DR STEPH Holland Consulting Unavailable KARASIK ., DR SANTIAGO Admitting Unavailabl e KARASIK ., DR SANTIAGO Attending Unavailabl e KARASIK [...] Unavailable Gato Domingo Attending UnavailGato Chatterjee Admitting Unavailtori Musaitis , Andrius Johnson Attending Unavailable Giedraitis , Andrius Vricardo Attending Unavailable Giedraitis , Andrius Vytautclara Attending Unavailable Giedraitis , Andrius Vricardo Attending Unavailable FAWWAD, SAUNDERS Attending Unavailable FAWWAD, SAUNDERS Attending Unavailable FAWWAD, SAUNDERS Attending Unavailable FAWWAD, SAUNDERS Attending Unavailable FAWWAD, SAUNDERS Attending Unavailable Unavailable Unavailable Unavailable Allergies Allergy Classification Reported Allergen(s) Allergy Type Date of Onset Reaction(s) Facility (3 sources) fentaNYL; Translations: [fentanyl] Drug Allergy 07-07-20 17 Hallucinating [facility] (2 sources) linezolid; Translations: [LINEZOLID] Drug Allergy 03-17-20 20 [facility] (20 sources) Vancomycin; Translations: [VANCOMYCIN] Drug Allergy 03-17-20 20 Unknown [facility] (11 sources) DENIES METAL SENSITITIVITY Propensity to adverse reactions Unknown [facility] Other Medications Current Medications Medication Drug Class(es) [...] 07, 2017 10:21am take 1 tablet by ebssie th every twenty-four hours amLODIPine Besylate 5 [...] each nostril Nasally Once a day Active Hvzorhhvpoe-Cabmpmikj-Sl lanter (1 source) Star t: 0212-26 Ckylvqromfg-Wzxutfvkx-G ilanter (Trelegy Ellipta) 200-62.5-25 mcg blister with [...] 1 puff(s) by inhalation twice daily Ipratropium [place] Active 2 PUFF Inhalation Twice daily July [...] take 1 capsule by mo [facility] every twelve hours Omeprazole 20 MG [...] Active Start: 08-05-2022 take 1 tablet by [facility] every twelve hours Potassium Chloride ER [...] Interpretation Reference Range Facility Follow-Upon 05-08-2023 Follow-Up [id number] Nell Champion 1955 F Date Provider Department Center 05/08/2023 GAURANG HETAL RAINA Baker Family History Problem Relation Age of Onset Heart failure Mother Heart disease Father Family Status - Relation Status Age at Mother Father Level of Service:10372 GA OFFICE/OUTPATIENT ESTABLISHED LOW MDM 20-29 MIN [facility] 05-03-2023 36 PATIENT CALLED TO CANCEL SURGERY FOR July D/T HER LUNG DISEASE. WILL CALL TO RESCHEDULE WHEN FULLY HEALED FROM LUNGS AND CLEARED//[facility] 3604-19-2023 36 FYI CALLED PATIENT T O F/U ON MEDICAL AND PULMONARY CLEARANCES FOR R ELZA ON 05/19 AND PRE-OP RIYA'T 04/27 WITH US AND PATIENT IS CURRENTLY INPATIENT SINCE LAST WEEK D/T COVID AND PULMONARY ISSUES, SHE WILL CALL US ON 04/25 WITH PROGRESS, PLEASE ADVISE IF WE SHOULD CANCEL SURGERY FOR NOW..THANKS//[facility] SYMPTOMATIC COVID-19 ANTIGEN on 04-04-2023 EUA [...] sooner. Performed By: #### C VDAGS #### [facility] [address] [place] [address] Dr. Shayne Roldan SARS-CoV-2 (COVID-19) RNA KAYLEE+probe Ql (Unsp spec) Positive Abnormal NEGATIVE [facility] Comment on above: Performed By: #### C VDAGS #### [facility] [address] [address] [address] Shayne Roldan XR LSPINE 2_3 VIEWSon [...] STEPH GRANADOS Date: 2023-03-24 12:52 Normal [facility] PTH INTACTon 02-27-2023 PTH, Intact 87 pg/mL Critically high 15-65 [facility] Comment on above: Performed By: #### P THINT #### [facility] [address] [place] [address] Dr. Shayne Roldan HEMOGRAM AND PLATELon 2022 Hematocrit (Bld) [Volume fraction] 44.4 % Normal 36.0-48.0 [facility] Comment on above: Performed By: #### H H #### [facility] [address] [place] [address] Dr. Shayne Roldan Hemoglobin (Bld) [Mass/Vol] 14.5 g/dL Normal 12.0-16.0 [facility] Comment on above: Performed By: #### H H #### [facility] [address] [place] [address] Dr. Shayne Roldan MCH (RBC) [Entitic mass] 30.3 pg Normal 26.7-34.0 [facility] Comment on above: Performed By: #### H H #### [facility] [address] [place] [address] Dr. Shayne Roldan MCHC (RBC) [Mass/Vol] 32.7 g/dL Normal 29.9-35.2 [facility] Comment on above: Performed By: #### H H #### [facility] [address] [place] [address] Dr. Shayne Roldan MCV (RBC) [Entitic vol] 92.9 fL Normal 81.0-99.0 [facility] Comment on above: Performed By: #### H H #### [facility] [address] [place] [address] Dr. Shayne Roldan PLT 367 103/ul Normal 150-450 [facility] Comment on above: Performed By: #### H H #### [facility] [address] [place] [address] Dr. Shayne Roldan RBC 4.78 106/ul Normal 4.20-5.40 [facility] Comment on above: Performed By: #### H H #### [facility] [address] [place] [address] Dr. Shayne Roldan WBC 9.9 103/ul Normal 4.0-11.0 [facility] Comment on above: Performed By: #### H H #### [facility] [address] [place] [address] Dr. Shayne Roldan MAGNESIUMon 02-25-2023 Magnesium [Mass/Vol] 1.6 mg/dL Critically low 1.8-2.4 [facility] Comment on above: Performed By: #### M G, RENAL, URIC #### [facility] [address] [place] [address] Dr. Shayne Roldan RENAL FUNCTION PANELon 02-25 Albumin [Mass/Vol] 3.4 g/dL Normal 3.4-5.0 [facility] Comment on above: Performed By: #### M G, RENAL, URIC #### [facility] [address] [place] [address] Dr. Shayne Roldan Calcium [Mass/Vol] 8.7 mg/dL Normal 8.5-10.1 [facility] Comment on above: Performed By: #### M G, RENAL, URIC #### [facility] [address] [address] [address] Shayne Roldan Chloride [Moles/Vol] 104 mmol/L Normal 98-107 [facility] Comment on above: Performed By: #### M G, RENAL, URIC #### [facility] [address] [address] [address] Shayne Roldan CO2 [Moles/Vol] 25.9 mmol/L Normal 21.0-32.0 [facility] Comment on above: Performed By: #### M G, RENAL, URIC #### [facility] [address] [address] [address] Shayne Roldan Creatinine [Mass/Vol] 1.19 mg/dL Critically high 0.55-1.02 [facility] Comment on above: Performed By: #### M G, RENAL, URIC #### [facility] [address] [place] [address] Dr. Shayne Roldan EGFR-AF GIBRALTARIAN 55 mL/min/1.73m2 Critically low >=60 [facility] Comment on above: Performed By: #### M G, RENAL, URIC #### [facility] [address] [address] [address] Shayne Roldan EGFR-NON AF GIBRALTARIAN 45 mL/min/1.73m2 Critically low >=60 [facility] Comment on above: Performed By: #### M G, RENAL, URIC #### [facility] [address] [address] [address] Shayne Roldan Glucose [Mass/Vol] 193 mg/dL Critically high 74-106 [facility] Comment on above: Performed By: #### M G, RENAL, URIC #### [facility] [address] [address] [address] Shayne Roldan Phosphate [Mass/Vol] 3.2 mg/dL Normal 2.6-4.7 [facility] Comment on above: Performed By: #### M G, RENAL, URIC #### [facility] [address] [address] [address] Shayne Roldan Potassium [Moles/Vol] 3.9 mmol/L Normal 3.5-5.1 [facility] Comment on above: Performed By: #### M G, RENAL, URIC #### [facility] [address] [address] [address] Shayne Roldan Sodium [Moles/Vol] 140 mmol/L Normal 136-145 [facility] Comment on above: Performed By: #### M G, RENAL, URIC #### [facility] [address] [address] [address] Shayne Roldan Urea nitrogen [Mass/Vol] 17.0 mg/dL Normal 7.0-18.0 [facility] Comment on above: Performed By: #### M G, RENAL, URIC #### [facility] [address] [place] [address] Dr. Shayne Roldan UA RANDOM W/MICROSCOPICon BACTERIA TRACE Abnormal NONE SEEN [facility] Comment on above: Performed By: #### M G, RENAL, URIC #### [facility] [address] [place] [address] Dr. Shayne Roldan Bilirubin Ql (U) Negative Normal NEGATIVE [facility] Comment on above: Performed By: #### M G, RENAL, URIC #### [facility] [address] [place] [address] Dr. Shayne Roldan CAST NONE SEEN Normal NONE SEEN [facility] Comment on above: Performed By: #### M G, RENAL, URIC #### [facility] [address] [place] [address] Dr. Shayne Roldan Clarity (U) CLEAR Normal CLEAR [facility] Comment on above: Performed By: #### M G, RENAL, URIC #### [facility] [address] [place] [address] Dr. Shayne Roldan Color (U) LT. YELLOW Normal YELLOW [facility] Comment on above: Performed By: #### M G, RENAL, URIC #### [facility] [address] [place] [address] Dr. Shayne Roldan Crystals LM Nom (Urine sed) NONE SEEN Normal NONE SEEN [facility] Comment on above: Performed By: #### M G, RENAL, URIC #### [facility] [address] [address] [address] Shayne Roldan Epithelial cells LM Ql (Urine sed) RARE Normal NONE SEEN /RARE [facility] Comment on above: Performed By: #### M G, RENAL, URIC #### [facility] [address] [address] [address] Shayne Roldan Glucose Ql (U) Negative Normal NEGATIVE [facility] Comment on above: Performed By: #### M G, RENAL, URIC #### [facility] [address] [address] [address] Shayne Roldan Hemoglobin Ql (U) Negative Normal NEGATIVE [facility] Comment on above: Performed By: #### M G, RENAL, URIC #### [facility] [address] [address] [address] Shayne Roldan Ketones Ql (U) Negative Normal NEGATIVE [facility] Comment on above: Performed By: #### M G, RENAL, URIC #### [facility] [address] [address] [address] Shayne Roldan LEUKOCYTES Negative Normal NEGATIVE [facility] Comment on above: Performed By: #### M G, RENAL, URIC #### [facility] [address] [address] [address] Shayne Roldan MUCOUS NONE SEEN Normal NONE SEEN [facility] Comment on above: Performed By: #### M G, RENAL, URIC #### [facility] [address] [address] [address] Shayne Roldan Nitrite Ql (U) Negative Normal NEGATIVE [facility] Comment on above: Performed By: #### M G, RENAL, URIC #### [facility] [address] [address] [address] Shayne Roldan pH (U) 5.0 [pH] Normal 5-9 [facility] Comment on above: Performed By: #### M G, RENAL, URIC #### [facility] [address] [address] [address] Shayne Roldan RBC 0-2 Normal 0-2 [facility] Comment on above: Performed By: #### M G, RENAL, URIC #### [facility] [address] [address] [address] Shayne Roldan SPEC GRAVITY 1.025 Normal 1.005-<=1.025 [facility] Comment on above: Performed By: #### M G, RENAL, URIC #### [facility] [address] [address] [address] Shayne Roldan UA PROTEIN Negative Normal NEGATIVE/ TRACE [facility] Comment on above: Performed By: #### M G, RENAL, URIC #### [facility] [address] [address] [address] Shayne Roldan Urobilinogen Qn (U) 0.2 {Rogelio'U}/dL Normal 0.2 - 1. 0 [facility] Comment on above: Performed By: #### M G, RENAL, URIC #### [facility] [address] [place] [address] Dr. Shayne Roldan WBC 0-2 Abnormal NONE SEEN [facility] Comment on above: Performed By: #### M G, RENAL, URIC #### [facility] [address] [place] [address] Dr. Shayne Roldan URIC ACID SERUMon 02-25-2023 Urate [Mass/Vol] 6.1 mg/dL Critically high 2.6-6.0 [facility] Comment on above: Performed By: #### M G, RENAL, URIC #### [facility] [address] [place] [address] Dr. Shayne Roldan URINE T PROTEIN CREAT RATIOo n 02-25-2023 Protein (U) [Mass/Vol] 13.0 mg/dL Critically high <=12.0 [facility] Comment on above: Performed By: #### M G, RENAL, URIC #### [facility] [address] [place] [address] Dr. Shayne Roldan UR PROT CREAT RAT 0.16 Normal [facility] Comment on above: Performed By: #### M G, RENAL, URIC #### [facility] [address] [address] [address] Shayne Roldan URINE CREAT 83.60 mg/dL Normal 20.00-300.00 [facility] Comment on above: Performed By: #### M G, RENAL, URIC #### [facility] [address] [address] [address] Shayne Roldan VITAMIN D 25 OHon 02-25-2023 VIT D 25-OH 41.6 ng/mL Normal [facility] Comment on above: Performed By: #### M G, RENAL, URIC #### [facility] [id number] Shayne Roldan VIT D RANGES SEE BELOW Normal [facility] Comment on above: Result Comment: <20 ng/mL Vit D deficient 20 - <30 ng/mL Vit D insufficient 30 - 100 ng/mL Vit D sufficient >100 ng/mL Potential Toxicity Performed By: #### M G, RENAL, URIC #### [facility] [address] [place], [place] [address] Dr. Shayne Roldan XR CHEST 2 Von [...] BRITTANY GALDAMEZ Date: 2023-02-22 16:15 Normal [facility] MAMM SCREEN 3D PRATEEK CADon 12-15-2022 MG MAMM SCREEN 3D PRATEEK CAD Patient: DIANA CHAMPION Exam Date: 12/15/2022 : 1955 Gender:F Ordering : DR JACK HALL . Admission #: [id number] Family : Order #: [id number] CLICK HERE TO VIEW EXAM RADIOLOGY REPORT PROCEDURE: MAMMOGRAM SCREENING 3D BILATERAL CAD COMPARISON: MG MAMM SCREEN 3D PRATEEK CAD, 11/26/2021. INDICATIONS: Calculator Name NCI Breast Cancer Risk Assessment Tool 5 Year Breast Cancer Risk 1.20% Lifetime Breast Cancer Risk 4.40% Personal Breast Cancer No Personal Ovarian Cancer No Treatments Excision, radiation, chemotherapy Family Cancers None LOCATION: [facility] BREAST COMPOSITION: Almost entirely fatty. FINDINGS: [...] Walters MD on 12/15/2022 at 10:51 Normal [facility] XR DEXA BONE DENSITYon 12-15 XR [...] by: STEPH GRANADOS Date: 2022-12-15 09:50 Normal [facility] Fran 12-08-2022 L - -------- Specimen: [id number] Received: 12/08/22 Status: CELIA Eliza Num: [id number] Spec Type: Surgical Subm Dr: Gato Domingo MD Tissues: A Colon Biopsy (DESC COL POLYP) Procedures: HE/2, Gross/Micro L4 -------- Age/ Patient Sex Location Account Attending Physician -------- Diana Champion 67/F [id number] Gato Domingo MD -------- SPEC NUM: [id number] RECD: 12/08/221006 STATUS: CELIA KAY NUM: [id number] KENDRA: 12/08/[address] [facility] [address]: Gato Domingo MD ENTERED: 12/08/[address] [facility] [address]: KHRIS TYPE: Surgical DEPT: S ENTERED BY: [id number] RECV BY: [id number] ORDERED: HE/2, Gross/Micro L4 ORDERED: HE/2, Gross/Micro [...] support the above pathologic diagnosis. CPT Codes 39608 -------- -------- Specimen: [id number] Received: 12/08/22 Status: CELIA Kay Num: [id number] Spec Type: Surgical Subm Dr: Gato Domingo MD Tissues: A Colon Biopsy (DESC COL POLYP) Procedures: HE/Evonne, Gross/Micro L4 -------- Patient: Diana Champion [id number] (Continued) -------- Signed (signature on file) Eunice Rosa MD 12/09/22 1053 [facility] PAP ACOG PANEL 2: 30 to 65on 11-16-2022 . . Normal [facility] Comment on above: Performed By: #### [id number] #### [facility] [address] [address] [address] Shayne Roldan Age Gdln ACOG Testing Comment [facility] Comment on above: Result Comment: <21 or >65 or no age provided Performed By: #### 4 [id number] #### [facility] [address] [address] [address] Shayne Roldan DIAGNOSIS: Comment [facility] Comment on above: Result Comment: NEGA TIVE FOR INTRAEPITHELIAL LESION OR MALIGNANCY. Performed By: #### 4 [id number] #### [facility] [address] [place] [address] Dr. Shayne Roldan Methodology: Comment [facility] Comment on above: Result Comment: This liquid based ThinPrep(R) pap test was screened with the use of an image guided system. Performed By: #### 4 [id number] #### [facility] [address] [place] [address] Dr. Shayne Roldan Note: Comment [facility] Comment on above: Result Comment: The Pap smear is a screening test designed to aid in the detection of premalignant and malignant conditions of the uterine cervix. It is not a diagnostic procedure and should not be used as the sole means of detecting cervical cancer. Both false-positive and false-negative reports do occur. . Performed By: #### 4 [id number] #### [facility] [address] [address] [address] Shayne Roldan Performed by: Comment [facility] Comment on above: Result Comment: Onur Aguilar Shield Installer (ASCP) Performed By: #### 4 [id number] #### [facility] [address] [place] [address] Dr. Shayne Roldan Specimen adequacy: Comment [facility] Comment on above: Result Comment: Sati sfactory for evaluation. Endocervical and/or squamous metaplastic cells (endocervical component) are present. Performed By: #### 4 [id number] #### [facility] [address] [place] [address] Dr. Shayne Roldan RENAL FUNCTION PANELon 08-19 Albumin [Mass/Vol] 3.4 g/dL Normal 3.4-5.0 [facility] Comment on above: Performed By: #### M G, RENAL, URIC #### [facility] [address] [place] [address] Dr. Shayne Roldan Calcium [Mass/Vol] 8.4 mg/dL Critically low 8.5-10.1 [facility] Comment on above: Performed By: #### M G, RENAL, URIC #### [facility] [address] [place] [address] Dr. Shayne Roldan Chloride [Moles/Vol] 103 mmol/L Normal 98-107 [facility] Comment on above: Performed By: #### M G, RENAL, URIC #### [facility] [address] [place] [address] Dr. Shayne Roldan CO2 [Moles/Vol] 27.8 mmol/L Normal 21.0-32.0 [facility] Comment on above: Performed By: #### M G, RENAL, URIC #### [facility] [address] [place] [address] Dr. Shayne Roldan Creatinine [Mass/Vol] 1.02 mg/dL Normal 0.55-1.02 [facility] Comment on above: Performed By: #### M G, RENAL, URIC #### [facility] [address] [place] [address] Dr. Shayne Roldan EGFR-AF GIBRALTARIAN >60 Normal >=60 [facility] Comment on above: Performed By: #### M G, RENAL, URIC #### [facility] [address] [place] [address] Dr. Shayne Roldan EGFR-NON AF GIBRALTARIAN 54 mL/min/1.73m2 Critically low >=60 [facility] Comment on above: Performed By: #### M G, RENAL, URIC #### [facility] [address] [place] [address] Dr. Shayne Roldan Glucose [Mass/Vol] 110 mg/dL Critically high 74-106 T [facility] Comment on above: Performed By: #### M G, RENAL, URIC #### [facility] [address] [place] [address] Dr. Shayne Roldan Phosphate [Mass/Vol] 2.3 mg/dL Critically low 2.6-4.7 [facility] Comment on above: Performed By: #### M G, RENAL, URIC #### [facility] [address] [place] [address] Dr. Shayne Roldan Potassium [Moles/Vol] 3.2 mmol/L Critically low 3.5-5.1 [facility] Comment on above: Performed By: #### M Poncho, RENAL, URIC #### [facility] [address] [place] [address] Dr. Shayne Roldan Sodium [Moles/Vol] 138 mmol/L Normal 136-145 [facility] Comment on above: Performed By: #### M G, RENAL, URIC #### [facility] [address] [place] [address] Dr. Shayne Roldan Urea nitrogen [Mass/Vol] 14.0 mg/dL Normal 7.0-18.0 [facility] Comment on above: Performed By: #### M G, RENAL, URIC #### [facility] [address] [place] [address] Dr. Shayne Roldan PTH INTACTon 08-06-2022 PTH, Intact 40 pg/mL Normal 15-65 [facility] Comment on above: Performed By: #### M G, RENAL, URIC #### [facility] [address] [place] [address] Dr. Shayne Roldan HEMOGRAM AND PLATELon 2021 Hematocrit (Bld) [Volume fraction] 39.8 % Normal 36.0-48.0 [facility] Comment on above: Performed By: #### M G, RENAL, URIC #### [facility] [address] [place] [address] Dr. Shayne Roldan Hemoglobin (Bld) [Mass/Vol] 13.4 g/dL Normal 12.0-16.0 [facility] Comment on above: Performed By: #### M G, RENAL, URIC #### [facility] [address] [place] [address] Dr. Shayne Roldan MCH (RBC) [Entitic mass] 30.5 pg Normal 26.7-34.0 [facility] Comment on above: Performed By: #### M G, RENAL, URIC #### [facility] [address] [place] [address] Dr. Shayne Roldan MCHC (RBC) [Mass/Vol] 33.7 g/dL Normal 29.9-35.2 [facility] Comment on above: Performed By: #### M G, RENAL, URIC #### [facility] [address] [place] [address] Dr. Shayne Roldan MCV (RBC) [Entitic vol] 90.5 fL Normal 81.0-99.0 [facility] Comment on above: Performed By: #### M G, RENAL, URIC #### [facility] [address] [place] [address] Dr. Shayne Roldan PLT 299 103/ul Normal 150-450 [facility] Comment on above: Performed By: #### M G, RENAL, URIC #### [facility] [address] [place] [address] Dr. Shayne Roldan RBC 4.40 106/ul Normal 4.20-5.40 [facility] Comment on above: Performed By: #### M G, RENAL, URIC #### [facility] [address] [place] [address] Dr. Shayne Roldan WBC 8.8 103/ul Normal 4.0-11.0 [facility] Comment on above: Performed By: #### M G, RENAL, URIC #### [facility] [address] [place] [address] Dr. Shayne Roldan MAGNESIUMon 08-05-2022 Magnesium [Mass/Vol] 1.5 mg/dL Critically low 1.8-2.4 [facility] Comment on above: Performed By: #### M G, RENAL, URIC #### [facility] [address] [address] Dr. Shayne Roldan RENAL FUNCTION PANELon 08-05 Albumin [Mass/Vol] 3.5 g/dL Normal 3.4-5.0 [facility] Comment on above: Performed By: #### M G, RENAL, URIC #### [facility] [address] [address] [address] Shayne Roldan Calcium [Mass/Vol] 8.4 mg/dL Critically low 8.5-10.1 [facility] Comment on above: Performed By: #### M G, RENAL, URIC #### [facility] [address] [address] [address] Shayne Roldan Chloride [Moles/Vol] 101 mmol/L Normal 98-107 [facility] Comment on above: Performed By: #### M G, RENAL, URIC #### [facility] [address] [address] [address] Shayne Roldan CO2 [Moles/Vol] 29.5 mmol/L Normal 21.0-32.0 [facility] Comment on above: Performed By: #### M G, RENAL, URIC #### [facility] [address] [address] [address] Shayne Roldan Creatinine [Mass/Vol] 1.04 mg/dL Critically high 0.55-1.02 [facility] Comment on above: Performed By: #### M G, RENAL, URIC #### [facility] [address] [address] [address] Shayne Roldan EGFR-AF GIBRALTARIAN >60 Normal >=60 [facility] Comment on above: Performed By: #### M G, RENAL, URIC #### [facility] [address] [address] [address] Shayne Roldan EGFR-NON AF GIBRALTARIAN 53 mL/min/1.73m2 Critically low >=60 [facility] Comment on above: Performed By: #### M G, RENAL, URIC #### [facility] [address] [address] [address] Shayne Roldan Glucose [Mass/Vol] 92 mg/dL Normal 74-106 [facility] Comment on above: Performed By: #### M G, RENAL, URIC #### [facility] [address] [address] [address] Shayne Roldan Phosphate [Mass/Vol] 2.4 mg/dL Critically low 2.6-4.7 [facility] Comment on above: Performed By: #### M G, RENAL, URIC #### [facility] [address] [place] [address] Dr. Shayne Roldan Potassium [Moles/Vol] 2.8 mmol/L Critically low 3.5-5.1 [facility] Comment on above: Performed By: #### M G, RENAL, URIC #### [facility] [address] [place] [address] Dr. Shayne Roldan Sodium [Moles/Vol] 137 mmol/L Normal 136-145 [facility] Comment on above: Performed By: #### M G, RENAL, URIC #### [facility] [address] [place] [address] Dr. Shayne Roldan Urea nitrogen [Mass/Vol] 10.0 mg/dL Normal 7.0-18.0 [facility] Comment on above: Performed By: #### M G, RENAL, URIC #### [facility] [address] [place] [address] Dr. Shayne Roldan UA RANDOM W/MICROSCOPICon BACTERIA SMALL Abnormal NONE SEEN [facility] Comment on above: Performed By: #### U AMIC #### [facility] [address] [place] [address] Dr. Shayne Roldan Bilirubin Ql (U) Negative Normal NEGATIVE [facility] Comment on above: Performed By: #### U AMIC #### [facility] [address] [place] [address] Dr. Shayne Roldan CAST NONE SEEN Normal NONE SEEN [facility] Comment on above: Performed By: #### U AMIC #### [facility] [address] [place] [address] Dr. Shayne Roldan Clarity (U) CLEAR Normal CLEAR [facility] Comment on above: Performed By: #### U AMIC #### [facility] [address] [address] [address] Shayne Roldan Color (U) LT. YELLOW Normal YELLOW [facility] Comment on above: Performed By: #### U AMIC #### [facility] [address] [address] [address] Shayne Roldan Crystals LM Nom (Urine sed) NONE SEEN Normal NONE SEEN [facility] Comment on above: Performed By: #### U AMIC #### [facility] [address] [address] [address] Shayne Roldan Epithelial cells LM Ql (Urine sed) FEW Abnormal NONE SEEN /RARE [facility] Comment on above: Performed By: #### U AMIC #### [facility] [address] [place] [address] Dr. Shayne Roldan Glucose Ql (U) Negative Normal NEGATIVE [facility] Comment on above: Performed By: #### U AMIC #### [facility] [address] [address] [address] Shayne Roldan Hemoglobin Ql (U) Negative Normal NEGATIVE [facility] Comment on above: Performed By: #### U AMIC #### [facility] [address] [place] [address] Dr. Shayne Roldan Ketones Ql (U) Negative Normal NEGATIVE [facility] Comment on above: Performed By: #### U AMIC #### [facility] [address] [address] [address] Shayne Roldan LEUKOCYTES TRACE Abnormal NEGATIVE [facility] Comment on above: Performed By: #### U AMIC #### [facility] [address] [address] [address] Shayne Roldan MUCOUS NONE SEEN Normal NONE SEEN [facility] Comment on above: Performed By: #### U AMIC #### [facility] [address] [place] [address] Dr. Shayne Roldan Nitrite Ql (U) Negative Normal NEGATIVE [facility] Comment on above: Performed By: #### U AMIC #### [facility] [address] [place] [address] Dr. Shayne Roldan pH (U) 6.0 [pH] Normal 5-9 [facility] Comment on above: Performed By: #### U AMIC #### [facility] [address] [place] [address] Dr. Shayne Roldan RBC NONE SEEN Abnormal 0-2 [facility] Comment on above: Performed By: #### U AMIC #### [facility] [address] [place] [address] Dr. Shayne Roldan SPEC GRAVITY <=1.005 Abnormal 1.005-<=1.025 [facility] Comment on above: Performed By: #### U AMIC #### [facility] [address] [place] [address] Dr. Shayne Roldan UA PROTEIN Negative Normal NEGATIVE/ TRACE [facility] Comment on above: Performed By: #### U AMIC #### [facility] [address] [place] [address] Dr. Shayne Roldan Urobilinogen Qn (U) 0.2 {Rogelio'U}/dL Normal 0.2 - 1. 0 [facility] Comment on above: Performed By: #### U AMIC #### [facility] [address] [place] [address] Dr. Shayne Roldan WBC 5-10 Abnormal NONE SEEN [facility] Comment on above: Performed By: #### U AMIC #### [facility] [address] [place] [address] Dr. Shayne Roldan URIC ACID SERUMon 08-05-2022 Urate [Mass/Vol] 6.5 mg/dL Critically high 2.6-6.0 [facility] Comment on above: Performed By: #### M G, RENAL, URIC #### [facility] [address] [place] [address] Dr. Shayne Roldan URINE T PROTEIN CREAT RATIOo n 08-05-2022 Protein (U) [Mass/Vol] 4.8 mg/dL Normal <=12.0 [facility] Comment on above: Performed By: #### U RTPCR #### [facility] [address] [place] [address] Dr. Shayne Roldan UR PROT CREAT RAT 0.09 Normal [facility] Comment on above: Performed By: #### U RTPCR #### [facility] [address] [address] [address] Shayne Roldan URINE CREAT 52.65 mg/dL Normal 20.00-300.00 [facility] Comment on above: Performed By: #### U RTPCR #### [facility] [address] [address] [address] Shayne Roldan VITAMIN D 25 OHon 08-05-2022 VIT D 25-OH 38.9 ng/mL Normal [facility] Comment on above: Performed By: #### M G, RENAL, URIC #### [facility] [address] [place] [address] Dr. Shayne Roldan VIT D RANGES SEE BELOW Normal [facility] Comment on above: Result Comment: <20 ng/mL Vit D deficient 20 - <30 ng/mL Vit D insufficient 30 - 100 ng/mL Vit D sufficient >100 ng/mL Potential Toxicity Performed By: #### M G, RENAL, URIC #### [facility] [address] [place] [address] Dr. Shayne Roldan IMMUNOGLOBULINS IGA/IGM/IGG/ IGE QUANTITAon 07-12-2022 Immunoglobulin A, Qn, Serum 295 mg/dL Normal 87-352 [facility] Comment on above: Result Comment: Perf ormed at: CB Performed By: #### M G, RENAL, URIC #### [facility] [address] [place] [address] Dr. Shayne Roldan Immunoglobulin E, Total 32 IU/mL Normal 6-495 [facility] Comment on above: Result Comment: Perf ormed at: BN Performed By: #### M G, RENAL, URIC #### [facility] [address] [place] [address] Dr. Shayne Roldan Immunoglobulin G, Qn, Serum 729 mg/dL Normal 586-1602 [facility] Comment on above: Result Comment: Perf ormed at: CB Performed By: #### M G, RENAL, URIC #### [facility] [address] [place] [address] Dr. Shayne Roldan Immunoglobulin M, Qn, Serum 75 mg/dL Normal 26-217 [facility] Comment on above: Result Comment: Perf ormed at: CB Performed By: #### M G, RENAL, URIC #### [facility] [address] [place] [address] Dr. Shayne Roldan Abstracton 07-08-2022 Abstract [id number] Nell Champion Meng 1955 F Date Provider Department Center 07/08/2022 JOHANNA MEDINA [facility] Family History Problem Relation Age of Onset Heart failure Mother Heart disease Father Family Status - Relation Status Age at Mother Father Normal [facility] CBC AUTO DIFFon 07-05-2022 BASO # 0.1 103/ul Normal 0.0-0.1 [facility] Comment on above: Performed By: #### M G, RENAL, URIC #### [facility] [address] [place] [address] Dr. Shayne Roldan Basophils/100 WBC (Bld) 0.7 % Normal 0.2-2.0 [facility] Comment on above: Performed By: #### M G, RENAL, URIC #### [facility] [address] [place] [address] Dr. Shayne Roldan EO # 0.4 103/ul Normal 0.0-0.7 [facility] Comment on above: Performed By: #### M G, RENAL, URIC #### [facility] [address] [place] [address] Dr. Shayne Roldan Eosinophils/100 WBC (Bld) 4.4 % Normal 0.9-7.0 [facility] Comment on above: Performed By: #### M G, RENAL, URIC #### [facility] [address] [place] [address] Dr. Shayne Roladn Erythrocyte distribution width (RBC) [Ratio] 12.6 % Normal 11.0-15.0 [facility] Comment on above: Performed By: #### M G, RENAL, URIC #### [facility] [address] [place] [address] Dr. Shayne Roldan Hematocrit (Bld) [Volume fraction] 40.2 % Normal 36.0-48.0 [facility] Comment on above: Performed By: #### M G, RENAL, URIC #### [facility] [address] [place] [address] Dr. Shayne Roldan Hemoglobin (Bld) [Mass/Vol] 13.6 g/dL Normal 12.0-16.0 [facility] Comment on above: Performed By: #### M G, RENAL, URIC #### [facility] [address] [place] [address] Dr. Shayne Roldan IG # 0.07 10e3/ul Critically high 0.00-0.03 [facility] Comment on above: Performed By: #### M G, RENAL, URIC #### [facility] [address] [place] [address] Dr. Shayne Roldan IG % 0.8 % Critically high 0.0-0.5 [facility] Comment on above: Performed By: #### M G, RENAL, URIC #### [facility] [address] [place] [address] Dr. Shayne Roldan LYMPH # 2.3 103/ul Normal 1.2-3.8 [facility] Comment on above: Performed By: #### M G, RENAL, URIC #### [facility] [address] [place] [address] Dr. Shayne Roldan Lymphocytes/100 WBC (Bld) 24.7 % Normal 20.5-60.0 [facility] Comment on above: Performed By: #### M G, RENAL, URIC #### [facility] [address] [place] [address] Dr. Shayne Roldan MANUAL DIFF REQ NO Normal [facility] Comment on above: Performed By: #### M G, RENAL, URIC #### [facility] [address] [place] [address] Dr. Shayne Roldan MCH (RBC) [Entitic mass] 30.7 pg Normal 26.7-34.0 [facility] Comment on above: Performed By: #### M G, RENAL, URIC #### [facility] [address] [address] [address] Shayne Roldan MCHC (RBC) [Mass/Vol] 33.8 g/dL Normal 29.9-35.2 [facility] Comment on above: Performed By: #### M G, RENAL, URIC #### [facility] [address] [address] [address] Shayne Roldan MCV (RBC) [Entitic vol] 90.7 fL Normal 81.0-99.0 [facility] Comment on above: Performed By: #### M G, RENAL, URIC #### [facility] [address] [place] [address] Dr. Shayne Roldan MONO # 0.7 103/ul Normal 0.3-0.8 [facility] Comment on above: Performed By: #### M G, RENAL, URIC #### [facility] [address] [place] [address] Dr. Shayne Roldan Monocytes/100 WBC (Bld) 7.7 % Normal 1.7-12.0 [facility] Comment on above: Performed By: #### M G, RENAL, URIC #### [facility] [address] [place] [address] Dr. Shayne Roldan NEUT # 5.7 103/ul Normal 1.4-6.5 [facility] Comment on above: Performed By: #### M G, RENAL, URIC #### [facility] [address] [address] [address] Shayne Roldan Neutrophils/100 WBC (Bld) 61.7 % Normal 43.0-75.0 [facility] Comment on above: Performed By: #### M G, RENAL, URIC #### [facility] [address] [address] [address] Shayne Roldan Platelet mean volume (Bld) [Entitic vol] 8.8 fL Critically low 9.5-13.5 [facility] Comment on above: Performed By: #### M G, RENAL, URIC #### [facility] [address] [place] [address] Dr. Shayne Roldan PLT 279 103/ul Normal 150-450 [facility] Comment on above: Performed By: #### M G, RENAL, URIC #### [facility] [address] [place], [place] [address] Dr. Shayne Roldan RBC 4.43 106/ul Normal 4.20-5.40 [facility] Comment on above: Performed By: #### M G, RENAL, URIC #### [facility] [address] [place], [place] [address] Dr. Shayne Roldan WBC 9.1 103/ul Normal 4.0-11.0 [facility] Comment on above: Performed By: #### M G, RENAL, URIC #### [facility] [address] [address] [address] Shayne Roldan [facility]on SARS-CoV-2 (COVID-19) RNA KAYLEE+probe Ql (Unsp spec) Not detected Normal NOT DETECTED [facility] Comment on above: Result Comment: This test is not yet approved or cleared by the [place] FDA. When there are no FDA-approved or cleared tests available, and other criteria are met, FDA can make tests available under an emergency access mechanism called an Emergency Use Authorization (EUA). The EUA for this test is supported by the [place] of Health and Human Service's (HHS's) declaration [...] By: #### M G, RENAL, URIC #### [facility] [address] [place], [place] [address] Dr. Shayne Roldan XR CHEST 2 Von [...] NARDA LONDONO Date: 2022-06-08 19:58 Normal [facility] Covid-19 PCR ([facility])on SARS-CoV-2 (COVID-19) RNA KAYLEE+probe Ql (Unsp spec) Not detected Normal NOT DETECTED [facility] Comment on above: Result Comment: This test is not yet approved or cleared by the [place] FDA. When there are no FDA-approved or cleared tests available, and other criteria are met, FDA can make tests available under an emergency access mechanism called an Emergency Use Authorization (EUA). The EUA for this test is supported by the [place] of Health and Human Service's (HHS's) declaration [...] consistent with SARS-CoV-2. Performed By: #### [facility] #### [facility] [address] [place] [address] Dr. Shayne Roldan DEXA AXIALon 03-01-2022 DEXA AXIAL [facility] Department of Radiology [address] [place] [address] Patient Name: DIANA CHAMPION : [...] characteristics. Electronically signed: Luzma Fernandez. Transcribed by: [email or web address], User Resident: Electronically Signed by: LUZMA FERNANDEZ @ 03/02/2022 01:[address] [facility] SCOLIOSIS 2 [facility] 02-24-2022 SCOLIOSIS 2 [facility] Department of Radiology [address] [place] [id number] Patient Name: DIANA CHAMPION : 1955 Sex: F Age: Race: White Pt. Location: Patient Status: D Ordered Date: 02/24/2022 1:25:00 PM Completed Date: 02/24/2022 01:44 PM Requesting Provider: CINDA ANTONIO Attending Provider: Report Copy To: Signs & Symptoms: M43.10 Spondylolisthesis, site unspecified I10 History: Comments: Views (X-RAY, SCOLIOSIS): PA, Lateral evaluate Exam: SCOLIOSIS 2 [facility] Scoliosis. Worsening pain. Frontal and lateral thoracolumbar spine IMPRESSION: 1. Diffuse disc disease and facet arthritis. Right convex mid lumbar curvature measuring 16 degrees. Interbody fusion hardware lower lumbar spine. Electronically signed: Hugo Lynn. Transcribed by: [email or web address], User Resident: Electronically Signed by: HUGO LYNN @ 02/26/2022 11:[address] [facility] Comment on above: Order Comment: Views (X-RAY, SCOLIOSIS): PA, Lateral evaluate CT LUMBAR SPINE W CONTRASTon 01-24-2022 CT LUMBAR SPINE W CONTRAST [facility] Department of Radiology [address] [place] [id number] Patient Name: DIANA CHAMPION : 1955 Sex: F Age: Race: White Pt. Location: Patient Status: D Ordered Date: 01/09/2022 9:00:00 AM Completed Date: 01/24/2022 03:26 PM Requesting Provider: JOO LINN Attending Provider: JOO LINN Report Copy To: UNKNOWN, PHYSICIAN Signs & Symptoms: M54.16 Radiculopathy, lumbar region I10 History: Grandin Comments: , CT MYELOGRAM>PAPER WORK IN CHART [...] L1-2. Electronically signed: Gaurang Lawrence. Transcribed by: [email or web address], User Resident: Electronically Signed by: GAURANG LAWRENCE @ 01/26/2022 08:58 AM Normal [facility] Comment on above: Order Comment: , CT MYELOGRAM>PAPER WORK IN CHART LUMBAR MYELOGRAMon 2 LUMBAR MYELOGRAM [facility] Department of Radiology [address] [place] [id number] Patient Name: DIANA CHAMPION : 1955 Sex: F Age: Race: White Pt. Location: Patient Status: O Ordered Date: 01/09/2022 9:00:00 AM Completed Date: 01/24/2022 02:37 PM Requesting Provider: JOO LINN Attending Provider: JOO LINN Report Copy To: UNKNOWN, PHYSICIAN Signs & Symptoms: M54.16 Radiculopathy, lumbar region I10 History: Jessica Is patient on thinners? 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 Consent was obtained. Timeout: [place] protocol timeout verification performed. PROCEDURE: Estimated blood [...] report. Electronically signed: Greg Marlow. Transcribed by: [email or web address], User Resident: DEBBIE JI Electronically Signed by: GREG MARLOW @ 01/24/2022 04:07 PM I personally read this/these film(s) with this resident Normal [facility] Comment on above: Order Comment: , CT MYELOGRAM> PAPER WORK SCANNED IN CHART , CT MYELOGRAM> PAPER WORK SCANNED IN CHART , , , Ordering Provider - JOO LINN MD , HIP LEFT 1 OR 2 VWS WITH PEL VISon 01-06-2022 HIP LEFT 1 OR 2 VWS WITH PELVIS [facility] Department of Radiology [address] [place] [id number] Patient Name: DIANA CHAMPION : 1955 Sex: F Age: Race: White Pt. Location: Patient Status: D Ordered Date: 12/21/2021 10:45:00 AM Completed Date: 01/06/2022 01:24 PM Requesting Provider: JOO LINN Attending Provider: JOO LINN Report Copy To: Signs & Symptoms: Z96.642 Presence of left artificial hip joint I10 History: Grandin Comments: Evaluate Exam: HIP LEFT 1 OR 2 VWS WITH PELVIS HIP LEFT 1 OR 2 VWS WITH PELVIS HISTORY: Hip replacement, follow-up. COMPARISON: None. IMPRESSION: 1. Redemonstrated left hip prosthesis without visible complication. 2. Advanced right hip arthritis without significant change with advanced joint space narrowing. Unchanged lumbosacral fusion hardware. Electronically signed: Joe Matthew. Transcribed by: [email or web address], User Resident: Electronically Signed by: JOE MATTHEW @ 01/09/2022 04:45 PM Normal [facility] Comment on above: Order Comment: Evalu ate Vital Signs Date Time Vital Sign Value Performing Clinician Facility 08-17-2023 09:20-0400 Body height 165.1 cm [facility] Jo[facility] Other [facility] Other 08-17-2023 09:20-0400 Body mass index (BMI) [Ratio] 38.1 kg/m2 [facility] Other [facility] Other 08-17-2023 09:20-0400 Body temperature 98.8 [degF] [facility] Jo[facility] Other [facility] Other 08-17-2023 09:20-0400 Body weight 103.87 kg [facility]ber[facility] Joana Other [facility] Other 08-17-2023 09:20-0400 Diastolic blood pressure 85 mm[Hg] [facility] Joana Other [facility] Other 08-17-2023 09:20-0400 Respiratory rate 18 /min [facility] Other [facility] Other 08-17-2023 09:20-0400 SaO2% (BldA) [Mass fraction] 94 % [facility] Jo[facility] Other [facility] Other 08-17-2023 09:20-0400 Systolic blood pressure 151 mm[Hg] [facility] Joana Other [facility] Other 03-02-2023 10:00-0400 Body height 165.1 cm [facility] Joana Other [facility] Other 03-02-2023 10:00-0400 Body mass index (BMI) [Ratio] 37.29 kg/m2 [facility] Other [facility] Other 03-02-2023 10:00-0400 Body temperature 98.9 [degF] [facility] Joana Other [facility] Other 03-02-2023 10:00-0400 Body weight 101.65 kg [facility]ber[facility] Joana Other [facility] Other 03-02-2023 10:00-0400 Diastolic blood pressure 76 mm[Hg] [facility] Joana Other [facility] Other 03-02-2023 10:00-0400 Respiratory rate 20 /min [facility] Joana Other [facility] Other 03-02-2023 10:00-0400 SaO2% (BldA) [Mass fraction] 96 % [facility] Joana Other [facility] Other 03-02-2023 10:00-0400 Systolic blood pressure 136 mm[Hg] [facility] Joana Other [facility] Other 12-08-2022 09:30-0500 Diastolic blood pressure 59 mm[Hg] MD Shaikh Ohara Work Phone: [facility] 12-08-2022 09:30-0500 Heart rate 55 /min MD Shaikh Ohara Work Phone: [facility] 12-08-2022 09:30-0500 Respiratory rate 16 /min MD Shaikh Ohara Work Phone: [facility] 12-08-2022 09:30-0500 SaO2% (BldA) [Mass fraction] 96 % MD Shaikh Ohara Work Phone: [facility] 12-08-2022 09:30-0500 Systolic blood pressure 112 mm[Hg] MD Shaikh Ohara Work Phone: [facility] 12-08-2022 06:54-0500 Body height 162.56 cm MD Shaikh Ohara Work Phone: [facility] 12-08-2022 06:54-0500 Body temperature 98.2 [degF] MD Shaikh Ohara Work Phone: [facility] 12-08-2022 06:54-0500 Body weight 104.32 kg MD Shaikh Ohara Work Phone: [facility] 08-09-2022 11:00-0400 Body height 165.1 cm [facility]ber[facility] Joana Other [facility] Other 08-09-2022 11:00-0400 Body mass index (BMI) [Ratio] 37.87 kg/m2 [facility]ber[facility] Joana Other [facility] Other 08-09-2022 11:00-0400 Body temperature 97.2 [degF] Herber[facility] Joana Other [facility] Other 08-09-2022 11:00-0400 Body weight 103.24 kg Herberth Joana Other [facility] Other 08-09-2022 11:00-0400 Diastolic blood pressure 88 mm[Hg] Herberth Joana Other [facility] Other 08-09-2022 11:00-0400 Respiratory rate 20 /min Herber[facility] Joana Other [facility] Other 08-09-2022 11:00-0400 SaO2% (BldA) [Mass fraction] 95 % [facility]ber[facility] Joana Other [facility] Other 08-09-2022 11:00-0400 Systolic blood pressure 133 mm[Hg] Herberth Joana Other [facility] Other 11-17-2021 10:40-0500 Body height 165.1 cm Herberth Joana Other [facility] Other 11-17-2021 10:40-0500 Body mass index (BMI) [Ratio] 37.97 kg/m2 Herber[facility] Joana Other [facility] Other 11-17-2021 10:40-0500 Body temperature 97.8 [degF] [facility]ber[facility] Joana Other [facility] Other 11-17-2021 10:40-0500 Body weight 103.51 kg Herberth Joana Other [facility] Other 11-17-2021 10:40-0500 Diastolic blood pressure 70 mm[Hg] Herberth Joana Other [facility] [employer] Other 11-17-2021 10:40-0500 Respiratory rate 18 /min Herberth Joana Other [facility] [employer] Other 11-17-2021 10:40-0500 SaO2% (BldA) [Mass fraction] 94 % Herberth Joana Other [facility] [employer] Other 11-17-2021 10:40-0500 Systolic blood pressure 130 mm[Hg] Herberth Joana Other [facility] Other 08-30-2021 13:15-0400 Body height 165.1 cm Rena Ginty Other [facility] Other 08-30-2021 13:15-0400 Body mass index (BMI) [Ratio] 36.61 kg/m2 Rena Ginty Other [facility] Other 08-30-2021 13:15-0400 Body temperature 98.7 [degF] Rena Ginty Other [facility] Other 08-30-2021 13:15-0400 Body weight 99.79 kg Rena Ginty Other [facility] Other 08-30-2021 13:15-0400 SaO2% (BldA) [Mass fraction] 90 % Rena Ginty Other [facility] Other Encounters Encounter Date Encounter Type Care Provider Facility Start: 01-25-2024 End: 01-25-2024 ambulatory SAUNDERS FAWWAD Not Available Start: 12-28-2023 End: 12-28-2023 ambulatory SAUNDERS FAWWAD Not Available Start: 12-18-2023 End: 12-19-2023 ambulatory Jayshree Vargas MD Facility: [facility] Start: 12-05-2023 End: 12-05-2023 ambulatory SAUNDERS FAWWAD Not Available Start: 11-13-2023 End: 11-14-2023 ambulatory Jayshree Vargas MD Facility: [facility] Start: 11-02-2023 End: 11-02-2023 ambulatory SAUNDERS FAWWAD Not Available Start: 10-09-2023 End: 10-10-2023 ambulatory Jayshree Vargas MD Facility: [facility] Start: 10-04-2023 End: 10-04-2023 ambulatory SHAIKH LEV Not Available Start: 09-07-2023 End: 09-07-2023 ambulatory Herberth Joana Other [facility] Other Start: 09-07-2023 Telephone encounter Herberth Joana [facility] Start: 08-28-2023 End: 08-28-2023 ambulatory Herberth Joana Other [facility] [employer] Other Start: 08-28-2023 Telephone encounter Herberth Joana [facility] Start: 08-21-2023 End: 08-22-2023 ambulatory Jayshree Vargas MD Facility: [facility] Start: 08-17-2023 End: 08-17-2023 ambulatory Herberth Joana Other [facility] Other Start: 08-17-2023 Office outpatient visit 25 minutes Herberth Joana [facility] [place] Start: 05-08-2023 End: 05-08-2023 ambulatory HETAL [facility] Start: 04-04-2023 End: 04-04-2023 ambulatory Dimitry LEV Facility:[facility] Start: 03-24-2023 End: 03-25-[address] STEPH GRANADOS Facility:[facility] Start: 03-23-2023 ambulatory JOO LINN [facility] Start: 03-02-2023 End: 03-02-2023 ambulatory Herberth Joana Other [facility] Other Start: 03-02-2023 Office outpatient visit 25 minutes Herberth Joana [facility] Start: 02-25-2023 End: 02-26-2023 ambulatory HERBERTH JOANA Facility:[facility] Start: 02-22-2023 End: 02-23-2023 ambulatory BO MCCLAIN . Facility:[facility] Start: 12-15-2022 End: 12-16-[address] JACK HALL . Facility:[facility] Start: 12-08-2022 End: 12-08-2022 ambulatory Shaikh Lev Facility:[facility] Start: 12-08-2022 End: 12-08-2022 Admission to same day surgery center MD Shaikh Ohara Work Phone: [facility] Work Phone: Start: 12-08-2022 End: 12-08-2022 ambulatory MD Shaikh Ohara Work Phone: [facility] Work Phone: Start: 11-11-2022 End: 11-11-[address] JACK HALL . Facility:[facility] Start: 11-09-2022 End: 11-09-2022 ambulatory Azkatherine Gonzalezs Other [facility] Other Start: 11-09-2022 Telephone encounter Azkatherine Ruelashous [facility] Start: 08-19-2022 End: 08-20-2022 ambulatory HERBERTH JOANA Facility: Start: 08-09-2022 End: 08-09-2022 ambulatory Herberth Joana Other [facility] Other Start: 08-09-2022 Office outpatient visit 10 minutes Herberth Joana [facility] Start: 08-09-2022 Telephone encounter Herberth Joana [facility] Start: 08-05-2022 Telephone encounter Herberth Joana [facility] Start: 08-05-2022 End: 08-06-2022 ambulatory HERBERTH JOANA [employer] Other Start: 07-08-2022 End: 07-08-2022 ambulatory Gato Domingo Other [facility] Other Start: 09-02-2022 Telephone encounter Gato leal [facility] Start: 07-05-2022 End: 07-06-2022 ambulatory SAUNDERS H FAJavonWAD Facility:[facility] Start: 06-08-2022 End: 06-09-2022 ambulatory SAUNDERS H FAWWAD Facility:[facility] Start: 06-07-2022 End: 06-07-2022 ambulatory SAUNDERS H FAWWAD Facility:[facility] Start: 01-24-2022 End: 01-25-2022 ambulatory PHYSICIAN UNKNOWN Facility:[facility] Start: 11-17-2021 End: 11-17-2021 ambulatory Herberth Joana Other [facility] Other Start: 11-17-2021 Office outpatient visit 15 minutes Herberth Joana [facility] Start: 08-30-2021 Office outpatient visit 15 minutes Rena Ginty [facility] Start: 09-11-2020 End: 09-11-2020 Chart abstracting Miguelito Buck Work Phone: Hematology/Oncology Start: 09-11-2020 End: 09-11-2020 [facility] Start: 09-11-2020 Results Only External Provider Exter nal-[facility] Start: 09-30-2019 End: 09-30-2019 Patient encounter procedure [facility] Start: 07-07-2017 End: 07-07-2017 Admission to day surgery [facility] Start: 05-24-2004 Evaluation and management of inpatient [facility] [place] Start: 04-26-2004 Evaluation and management of inpatient [facility] [place] Procedures Date Procedure Procedure Detail Performing Clinician Start: 12-08-2022 Colonoscopy MD Shaikh Ohara Work Phone: Start: 09-11-2020 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 Degreasing Solution Reclaimer al Provider Start: 09-11-2020 EXTERNAL LAB External P rovider Start: 09-11-2020 EXTERNAL PROCEDURE Exte rnal Provider Start: 09-30-2019 Ultrasonography of b ilateral kidneys Steph Collier Plan of Treatment Date Care Activity Detail Author Start: 12-08-2022 [facility] Start: 07-07-2020 Influenza vaccination INFLUENZA (#1) [facility] Start: 2006 SHINGRIX VACCINE (1 of 2) SHINGRIX VACCINE (1 of 2) [facility] Start: 2006 Tuberculosis screening COLORECTAL CANCER SCREENING,SEE MODIFIER [facility] Start: 2001 DIABETES SCREEN DIABETES SCREEN [facility] Start: 2001 LIPID SCREEN LIPID SCREEN [facility] Start: 1996 Mammography MAMMOGRAM [facility] Start: 1986 HPV TESTING HPV TESTING [facility] Start: 1977 PAP TESTING PAP TESTING [facility] Start: 1975 Urine microalbumin profile DTAP,TDAP,TD (1 - Tdap) [facility] Start: 1974 HEPATITIS C SCREENING HEPATITIS C SCREENING [facility] Start: 1974 HIV SCREENING HIV SCREENING [facility] Patient Education Colon Polypect shahram Hemorrhoids (DC) Diverticulosis (DC) [facility] Work Phone: [facility] Immunizations Immunization Date Immunization Notes Care Provider Fa cility 07-18-2018 Depo-Medrol 40 mg Rena Gint y Other [facility] Other 01-31-2018 Depo-Medrol 40 mg Rena Gint y Other [facility] Other 08-09-2017 influenza, seasonal, injectable, preservative free Rena Ginty Other [facility] [employer] Other Payers Date Payer Category Payer Unknown 2022 Self-pay [id number] 2021 Medicare [id number] 2020 Medicaid [id number] 2019 Medicaid MEDICAID [facility] MEDICAID [id number] 2019-Present Medicaid [id number] 2016 Medicare MEDICARE MEDICAR E A AND B [id number] 2016-Present [place] Medicare [id number] 1959 Unknown [id number] 1956 Unknown [id number] 2.16.840.1.918876.3.579.2.647 1956 Unknown [id number] 2.16.840.1.376672.3.579.2.593 1956 Unknown [id number] 2.16.840.1.029067.3.579.2.593 1956 Unknown [id number] 2.16.840.1.613614.3.579.2.593 1956 Unknown [id number] 2.16.840.1.586769.3.579.2.593 1956 Unknown [id number] 2.16.840.1.883817.3.579.2.593 1956 Unknown [id number] 2.16.840.1.842892.3.579.2.593 1956 Unknown [id number] 2.16.840.1.413115.3.579.2.593 1956 Unknown [id number] 2.16.840.1.927677.3.579.2.593 1956 Unknown [id number] 2.16.840.1.454889.3.579.2.593 1956 Unknown [id number] 2.16.840.1.083879.3.579.2.593 1956 Unknown [id number] 2.16.840.1.660821.3.579.2.593 1956 Unknown [id number] 2.16.840.1.196698.3.579.2.196 1956 Unknown [id number] 2.16.840.1.621247.3.579.2.196 1956 Unknown [id number] 2.16.840.1.175435.3.579.2.196 1956 Unknown [id number] 2.16.840.1.083121.3.579.2.196 1956 Unknown [id number] 2.16.840.1.515866.3.579.2.1259 1956 Unknown [id number] 2.16.840.1.278418.3.579.2.1259 1956 Unknown [id number] 2.16.840.1.909268.3.579.2.1259 1956 Unknown [id number] 2.16.840.1.102152.3.579.2.1259 1956 Unknown [id number] 2.16.840.1.349772.3.579.2.1259 Medicare [id number] Unknown HCAP/HFA/FAP Active [id number] Unknown [id number] 2.16.840.1.568655.3.579.2.531 Social History Date Type Detail Facility Tobacco smoking stat us [facility] Unknown if ever smoked [facility] Start: 1955 Sex Assigned At Female F [facility] Start: 09-11-2020 End: 12-08-2022 Tobacco smoking status NHIS Never smoker [facility] Start: 09-11-2020 Tobacco use and exposure Never used [facility] Start: 09-11-2020 Alcohol intake Lifetime non-d my (finding) [facility] Start: 09-11-2020 History SDOH Alcohol Frequency 1 [facility] Sex Assigned At Not on file [facility] Sex Assigned At Sex Assigned At Bir th [facility] Other Goals Date Patient Goal Desired Activity /State Clinical Notes 08-30-2021 to 09-07-2023 Note Date & Type Note Facility 09-07-2023 Evaluation note Encounter Date Diagnosis Assessment Notes Sep, Hypomagnesemia (ICD-10 - E83.42) [facility] Other 10-23-2023 Evaluation note* Encounter Date Diagnosis Assessment Notes Treatment Notes Treatment Clinical Notes Aug, Nico lopez w cr kid I-IV (ICD-10 - I12.9) [facility] Other 10-12-2023 Evaluation note* Encounter Date Diagnosis [...] PPI induced GI losses. Continue oral Magnesium [facility] Other [id number] [facility] Chief Complaint: Patient here for 1 year follow up CAD and hypertension. She was recently discharged from [facility] for Covid-19. She says hydrochlorothiazide was [...] breath since then. She has seen her automatic beam warper tender. Her chest pain is noncardiac. She has no other cardiac complaints. Cardiology ROS: Review of Systems Cardiovascular: Positive for chest pain and dyspnea on exertion. Respiratory: Positive for wheezing. Musculoskeletal: Positive for arthritis, back pain, joint pain and myalgias. Neurological: Positive for light-headedness. All other systems reviewed and are negative. Past Medical History She has a past medical history of Cancer (CMS/[facility]) and Hypertension. Surgical History She [...] 325 mg by mouth., Disp: , Rfl: tylgpjmrpue-xhailuinq-dkyqvhvt 100-62.5-25 mcg blister with device, , Disp: [...] increased eff (more content not included)...[facility]05-19-2023 NotePROCEDURE: XR HIP RT 2 3V W PELVIS HISTORY: Pain in right hip joint , chronic COMPARISON: XR L-spine 02/26/2019, XR left hip with pelvis 03/11/2017 FINDINGS: BONES:Complete loss of the right hip joint space with pkih-oe-dkmr articulation, subchondral sclerosis and cysts, and large periarticular degenerative osteophytes. No fracture or dislocation. Left hip replacement. Mechanical fusion of L5-S1 and moderate dextroscoliosis of lumbar spine. SOFT TISSUES:No visible soft tissue swelling. EFFUSION:None visible. OTHER: Negative. IMPRESSION: 1. Marked degenerative joint disease of the right hip; progressed since prior study. 2. Stable surgical changes. Electronically authenticated by: STEPH GRANADOS Date: 2023-03-24 12:55[facility]18[facility]23 NoteSubjective 03/23/23 Diana Champion is a [...] LIGATION Past Medical History: Diagnosis Date Cancer ([facility]) Hypertension Objective General: Body mass [...] from the patient's PCP as well as automatic beam warper tender for a right anterior total hip arthroplasty. [...] an additional personal documentation from me.[facility]04-27-2023 Evaluation note* Encounter Date Diagnosis Assessment [...] PPI induced GI losses. Continue oral Magnesium [facility]* Encounter Date Diagnosis Assessment Notes Treatment Notes Treatment Clinical Notes Nov, Hypokalemia (ICD-10 - E87.6) Nov, Hypomagnesemia (ICD-10 - E83.42) [facility] Other 10-04-2022 Evaluation note* Encounter Date Diagnosis [...] office does not accept her new insurance. [facility] Other 09-02-2022 Evaluation note* Encounter Date Diagnosis Assessment Notes Treatment Notes Treatment Clinical Notes Jul, History of colon cancer (ICD-10 - Z85.038) [facility] Other 01-12-2022 Evaluation note* Encounter Date Diagnosis Assessment Notes Treatment Notes Treatment Clinical Notes Nov, Nico bolden cr kid I-IV (ICD-10 - I12.9) Blood [...] potassium wasting. I have prescribed oral potassium. [facility] Other 10-25-2021 Evaluation note* Encounter Date Diagnosis [...] in writting by [facility] document [facility] Other Evaluation noteNo InformationNort [employer] Other Evaluation note* Diagnosis Onset Date Resolution Status History of colon cancer [facility] Work Phone: [facility] general Narrative - Reported* Type Description Date [...] IN 08/2019 Hospitalization History HIP REVISION 03/2020 [facility] Other [facility] general Narrative - Reported* Type Description Date [...] HIP RESVISION 03/2020 Hospitalization History see above 2002,198 7 Hospitalization History 1 week during chemo 2003 Hospitalization History ISSUE WITH HIP C OMING OUT AND NEEDING TO PUT IT BACK IN 08/2019 Hospitalization History HIP REVISION 03/2020 Hospitalization History COVID X 2 WEEKS 04/2023 [facility] Other Hospital Discharge instructions Additional Instructions DISCHARGE [...] if you have any problems. -Office number [phone] Work Phone: Advance Directives No Advanced Directives [...] or prosecute any alcohol or drug abuse patient.[facility] the event this information is protected by the Federal Confidentiality of Alcohol and Drug Abuse Patient Records regulations: The Federal rules restrict any use of the information to criminally investigate or prosecute any alcohol or drug abuse patient.[facility] Hospital[facility] the event this information is protected by the Federal Confidentiality of Alcohol and Drug Abuse Patient Records regulations: The Federal rules restrict any use of the information to criminally investigate or prosecute any alcohol or drug abuse patient.[facility] Hospital[facility] the event this information is protected by the Federal Confidentiality of Alcohol and Drug Abuse Patient Records regulations: The Federal rules restrict any use of the information to criminally investigate or prosecute any alcohol or drug abuse patient.[facility] INFORMATION SOURCE (unrecogn ized section and content) DATE CREATED AUTHOR 03/03/2022 [facility] DATE CREATED AUTHOR AUTHOR'S ORGANIZ ATION 04/17/2023 [facility] DATE CREATED AUTHOR AUTHOR'S ORGANIZ ATION 05/08/2023 [facility] DATE CREATED AUTHOR AUTHOR'S ORGANIZ ATION 06/07/2023 [facility] DATE CREATED AUTHOR AUTHOR'S ORGANIZ ATION 12/24/2023 [facility] DATE CREATED AUTHOR AUTHOR'S ORGANIZ ATION 01/26/2024 [facility] EPIC REASON FOR VISIT (unrecogniz ed [...] BE BASED ON THE PRIMARY CLINICAL RECORDS. [facility]. provides no warranty or guarantee of the accuracy or completeness of information in this document.
[2024-02-03 09:53] LABS: Albumin Globulin Ratio 0.6; Albumin Level 2.3 g/dL (3.4-5.0); Alkaline Phosphatase 108 U/L (46-116); Anion Gap 13.9; Aspartate Amino Transferase 13 U/L (15-37); BUN Creatinine Ratio 8.3; Bilirubin Total 0.6 mg/dL (0.2-1.0); Carbon Dioxide 29.5 mmol/L (21.0-32.0); Chloride 101 mmol/L (98-107); Estimated GFR (African America 54 (>=60); Estimated GFR (Non-African Ame 44 (>=60); Glucose 127 mg/dL (74-106); Potassium 3.4 mmol/L (3.5-5.1); Sodium 141 mmol/L (136-145); Total Protein 6.3 g/dL (6.4-8.2); Troponin I High Sensitivity 18.7 pg/mL (4.0-51.3)
[2024-02-03] MEDS: MAGNESIUM SULFATE IN WATER 2 GM/50 ML PREMIX IV (10:17)
[2024-02-03 10:26] LABS: Alanine Aminotransferase 17 U/L (14-59)
[2024-02-03] MEDS: CEFTRIAXONE 1,000 MG in 0.9 % SODIUM CHLORIDE 50 ML 100 MG IV (10:49)
[2024-02-03] MEDS: AZITHROMYCIN 500 MG in 0.9 % SODIUM CHLORIDE 250 ML 250 MG IV (11:12)
--- NOTE | 2024-02-03 13:03 | P.HP_ITS ---
HPI H&P: HPI History of Present Illness Chief complaint: GENERAL WEAKNESS Narrative: Patient presented to emergency room with increasing weakness and shortness of breath. In ER found to have acute exacerbation of COPD with significant hypoxia with O2 saturation of 88% on her normal 2 L. When I saw patient in the emergency room she was still having some dyspnea with conversational dyspnea. Some mild edema. Patient will be admitted for workup and treatment of same. Investigated other etiologies for her dyspnea. Opioid HPI Opioid Management Most Recent Opioid Data: Last Pain Scale 10 01/21/24 12:31 Last Pain Intensity 0 04/21/23 10:00 Review of Systems ROS Status of ROS 10 or more systems reviewed and unremark able except as noted in history and below PFSH [facility] Medical History CAD (coronary artery disease) ?I25.10 - Atherosclerotic heart disease of [place] coronary artery without angina pectoris (ICD-10) Chronic heart failure with preserved ejection fraction (HFpEF) ?I50.32 - Chronic diastolic (congestive) heart failure (ICD-10) Hypertension ?I10 - Essential (primary) hypertension (ICD-10) Myofascial pain ?M79.18 - Myalgia, other site (ICD-10) Greater trochanteric bursitis ?M70.60 - Trochanteric bursitis, unspecified hip (ICD-10) Osteoarthritis of right hip ?M16.11 - Unilateral primary osteoarthritis, right hip (ICD-10) Lumbar spondylosis ?M47.816 - Spondylosis without myelopathy or radiculopathy, lumbar region (ICD-10) Lumbar postlaminectomy syndrome ?M96.1 - Postlaminectomy syndrome, not elsewhere classified (ICD-10) Lumbar stenosis with neurogenic claudication ?M48.062 - Spinal stenosis, lumbar region with neurogenic claudication (ICD- 10) Depression ?F32.A - Depression, unspecified (ICD-10) Chronic low back pain ?M54.50 - Low back pain, unspecified (ICD-10) ?G89.29 - Other chronic pain (ICD-10) Hypoxia ?R09.02 - Hypoxemia (ICD-10) Heart murmur ?R01.1 - Cardiac murmur, unspecified (ICD-10) Chronic obstructive pulmonary disease ?J44.9 - Chronic obstructive pulmonary disease, unspecified (ICD-10) Asthma ?J45.909 - Unspecified asthma, uncomplicated (ICD-10) Surgical History Status post hip surgery ?Z98.890 - Other specified postprocedural states (ICD-10) H/O foot surgery ?Z98.890 - Other specified postprocedural states (ICD-10) H/O tubal ligation ?Z98.51 - Tubal ligation status (ICD-10) History of lumbar fusion ?Z98.1 - Arthrodesis status (ICD-10) Social History Smoking status: Never smoker Highest level of school completed/degree received: Associate degree: occupational, technical, vocational program Do you think of yourself as: straight/heterosexual Gender Identity: female Meds Home Medications and Allergies Home Medications ?Medication ?Instructions ?Recorded ?Confirmed ?Type fluticasone fur. 200 mcg-umeclid 1 inh inhalation Q24H COPD 04/10/23 02/03/24 History 62.5 mcg-vilant 25 mcg inhalat.powder (Trelegy Ellipta) magnesium oxide 400 mg (241.3 mg 400 mg PO DAILY 04/10/23 02/03/24 History magnesium) tablet omeprazole 20 mg capsule,delayed 20 mg PO BID 04/10/23 02/03/24 History release losartan 50 mg tablet (Cozaar) 50 mg PO BID 08/21/23 02/03/24 History montelukast 10 mg tablet 10 mg PO DAILY 09/14/23 02/03/24 History pramipexole 0.25 mg tablet 0.25 mg PO QPM 09/14/23 02/03/24 History (Mirapex) paroxetine HCl 30 mg tablet 30 mg PO QDAY 11/25/23 02/03/24 History pregabalin 75 mg capsule 75 mg PO BID 11/25/23 02/03/24 History solifenacin 10 mg tablet 10 mg PO QDAY 11/25/23 02/03/24 History trazodone 100 mg tablet 100 mg PO .qhs 11/25/23 02/03/24 History guaifenesin 600 mg tablet, 600 mg PO BID 10 days #20 tabs 12/02/23 02/03/24 Rx extended release 12 hr (Mucus Relief ER) tramadol 50 mg tablet 50 mg PO BID PRN pain 01/30/24 02/03/24 History baclofen 10 mg tablet 10 mg PO Q8H 02/03/24 02/03/24 History oxycodone 5 mg tablet 5 mg PO Q6H PRN pain 02/03/24 02/03/24 History Allergies Allergy/AdvReac Type Severity Reaction Status Date / Time No Known Drug Allergies Allergy Verified 12/18/23 07:25 Exam Constitutional Vital Signs, click to edit/add: Last Vital Signs Temp 99.4 F 02/03/24 09:00 Pulse 79 02/03/24 12:10 Resp 18 02/03/24 09:00 BP 127/57 02/03/24 12:01 Pulse Ox 92 L 02/03/24 12:40 O2 Del Method Nasal Cannula 02/03/24 12:40 O2 Flow Rate 3 02/03/24 12:40 Documenting provider has reviewed patient's vital signs: yes Common normals: apparent distress (Mild conversational dyspnea) [facility] Common normals: normocephalic Chest Common normals: inspection of chest normal Respiratory Common normals: abnormal respiratory effort (Mild conversational dyspnea) Effort & inspection: not able to speak in complete sentences Auscultation: rhonchi, wheezes and egophony right upper Cardio Common normals: regular rate, regular rhythm and no murmurs GI Common normals: Normal to inspection, nondistended, normoactive bowel sounds present Extremity Common normals: abnormal to inspection (2+ edema, worse for her) Results Labs Labs: Short CBC 02/03/24 Range/Units 09:15 WBC 19.2 H (4.0-11.0) 10^3/uL Hgb 11.4 L (12.0-16.0) g/dL Hct 35.8 L (36.0-48.0) % Plt Count 233 (150-450) 10^3/uL BMP 02/03/24 09:15 Sodium 141 Potassium 3.4 L Chloride 101 Carbon Dioxide 29.5 BUN 10.0 Creatinine 1.21 H Glucose 127 H Calcium 8.0 L Liver Function 02/03/24 Range/Units 09:15 Total Bilirubin 0.6 (0.2-1.0) mg/dL AST 13 L (15-37) U/L ALT 17 (14-59) U/L Alkaline Phosphatase 108 (46-116) U/L Albumin 2.3 L (3.4-5.0) g/dL Assessment and Plan Assessment and Plan (1) Hypomagnesemia: (2) Acute hypokalemia: (3) Pneumonia: Qualifiers: Laterality: unspecified laterality Lung location: unspecified part of lung Pneumonia type: due to unspecified organism Qualified Code(s): J18.9 - Pneumonia, unspecified organism Plan Acute hypoxia with O2 saturation of 88% on 2 L, peripheral edema, leukocytosis, hypokalemia, hypomagnesemia secondary to acute exacerbation of COPD due to possible right upper lobe pneumonia-on exam she does have egophony right upper lobe. IV antibiotics, aerosols, steroids., Sputum culture Peripheral edema-increased from baseline-1 dose of Lasix, possible fluid overload secondary to the above. BNP and HST are normal Chronic kidney disease 2-monitor daily Hypokalemia-supplement Hypomagnesemia-supplement Significant weakness-will have physical therapy evaluate patient, possible rehab candidate. Leukocytosis secondary to above-monitor daily Iron deficiency anemia-monitor daily Hyperglycemia-this is likely to progress as she has some previous visits will place patient on insulin sliding scale. GERD-continue with home medications Chronic pain syndrome-continue with home medications Inpatient criteria: With significant hypoxia for somebody with his baseline supplemental oxygen of 2 L, significant leukocytosis representing possible sepsis, cultures are pending, medically necessary treatment will definitely span 2 midnights she is likely a 3 to 4-day hospital stay
[2024-02-03 14:06] LABS: Lactate/Lactic Acid 1.7 mmol/L (0.4-2.0); Magnesium 2.3 mg/dL (1.8-2.4); Troponin I High Sensitivity 16.4 pg/mL (4.0-51.3)
[2024-02-03 14:11] LABS: Thyroid Stimulating Hormone 2.387 uIU/mL (0.358-3.740)
[2024-02-03] MEDS: SOLIFENACIN SUCCINATE 10 MG TABLET PO (14:50)
[2024-02-03] MEDS: BACLOFEN 10 MG TABLET PO ×2 (14:50→22:55)
[2024-02-03] MEDS: FUROSEMIDE 40 MG/4 ML VIAL IVP (16:28)
[2024-02-03 16:33] LABS: Magnesium 2.5 mg/dL (1.8-2.4); Troponin I High Sensitivity 14.2 pg/mL (4.0-51.3)
--- OUTSIDE RECORDS SUMMARY | 2024-02-03 16:46 | XMS_ITS | CCD ---
Author Organization [facility] Care Team Providers Care Merchant Tailor Name Role Phone Steph Collier Attending Provider Unavailable Chantel Rainey Primary Care Provider Unavailabl e Joana, Herberth Attending Provider Unavailable Unavailable Primary Care Provider Unavailabl e UNKNOWN, PHYSICIAN Referring Unavailable JOO LINN Attending Unavailable JOO LINN Admitting Unavailable UNKNOWN, PHYSICIAN Primary Care Unavailable Rena Hurd Unavailable Joana, Herberth Unavailable Gato Domingo Unavailable Steph Collier Attending Provider [phone] MD Gato Domingo Attending Provider MD [...] e FAWWAD, SAUNDERS H Primary Care Unavailable HOUMA, DR BRITTANY Elizondo Consulting Unavailable ZIEBBETH, DR [...] Translations: [fentanyl] Drug Allergy 07-07-20 17 Hallucinating [facility] (2 sources) linezolid; Translations: [LINEZOLID] Drug Allergy 03-17-20 20 [facility] (20 sources) Vancomycin; Translations: [VANCOMYCIN] Drug Allergy 03-17-20 20 Unknown [facility] (11 sources) DENIES METAL SENSITITIVITY Propensity to adverse reactions Unknown [place] Other Medications Current Medications Medication Drug Class(es) [...] each nostril Nasally Once a day Active Ghxiqcezfih-Wrtvtiwrx-Fi lanter (1 source) Star t: 0212-26 Zyemsgqluku-Oshghomyj-K ilanter (Trelegy Ellipta) 200-62.5-25 mcg blister with [...] 1 puff(s) by inhalation twice daily Ipratropium [place] Active 2 PUFF Inhalation Twice daily July [...] 2017 10:21am take 1 capsule by mo [facility] every twelve hours Omeprazole 20 MG [...] 08-05-2022 take 1 tablet by [facility] every twelve hours Potassium Chloride ER 20 [...] Interpretation Reference Range Facility Follow-Upon 05-08-2023 Follow-Up [id number] Nell Champion 1955 F Date Provider Department Center 05/08/2023 GAURANG HETAL RAINA Baker Family History Problem Relation Age of Onset Heart failure Mother Heart disease Father Family Status - Relation Status Age at Mother Father Level of Service:92327 [place] OFFICE/OUTPATIENT ESTABLISHED LOW MDM 20-29 MIN [facility] 05-03-2023 36 PATIENT CALLED TO CANCEL SURGERY FOR July D/T HER LUNG DISEASE. WILL CALL TO RESCHEDULE WHEN FULLY HEALED FROM LUNGS AND CLEARED//[facility] 3604-19-2023 36 FYI CALLED PATIENT T O F/U ON MEDICAL AND PULMONARY CLEARANCES FOR R ELZA ON 05/19 AND PRE-OP RIYA'T 04/27 WITH US AND PATIENT IS CURRENTLY INPATIENT SINCE LAST WEEK D/T COVID AND PULMONARY ISSUES, SHE WILL CALL US ON 04/25 WITH PROGRESS, PLEASE ADVISE IF WE SHOULD CANCEL SURGERY FOR NOW..THANKS//[facility] SYMPTOMATIC COVID-19 ANTIGEN on 04-04-2023 EUA Statement SEE BELOW Normal [facility] Comment on above: Result Comment: This [...] sooner. Performed By: #### C VDAGS #### [facility] [place] [facility] [address] [place] [address] Dr. Shayne Roldan SARS-CoV-2 (COVID-19) RNA KAYLEE+probe Ql (Unsp spec) Positive Abnormal NEGATIVE [facility] [place] Comment on above: Performed By: #### C VDAGS #### [facility] [place] [facility] [address] [address] [address] Shayne Roldan XR LSPINE 2_3 VIEWSon [...] STEPH GRANADOS Date: 2023-03-24 12:52 Normal The [facility] [place] PTH INTACTon 02-27-2023 PTH, Intact 87 pg/mL Critically high 15-65 [facility] Comment on above: Performed By: #### P THINT #### [facility] [place] [facility] [address] [place] [address] Dr. Shayne Roldan HEMOGRAM AND PLATELon 2022 Hematocrit (Bld) [Volume fraction] 44.4 % Normal 36.0-48.0 [facility] Comment on above: Performed By: #### H H #### [facility] [place] [facility] [address] [place] [address] Dr. Shayne Roldan Hemoglobin (Bld) [Mass/Vol] 14.5 g/dL Normal 12.0-16.0 [facility] [place] Comment on above: Performed By: #### H H #### [facility] [place] [facility] [address] [place] [address] Dr. Shayne Roldan MCH (RBC) [Entitic mass] 30.3 pg Normal 26.7-34.0 [facility] Comment on above: Performed By: #### H H #### [facility] [place] [facility] [address] [place] [address] Dr. Shayne Roldan MCHC (RBC) [Mass/Vol] 32.7 g/dL Normal 29.9-35.2 [facility] [place] Comment on above: Performed By: #### H H #### [facility] [place] [facility] [address] [place] [address] Dr. Shayne Roldan MCV (RBC) [Entitic vol] 92.9 fL Normal 81.0-99.0 [facility] Comment on above: Performed By: #### H H #### [facility] [place] [facility] [address] [place] [address] Dr. Shayne Roldan PLT 367 103/ul Normal 150-450 [facility] [place] Comment on above: Performed By: #### H H #### [facility] [place] [facility] [address] [place] [address] Dr. Shayne Roldan RBC 4.78 106/ul Normal 4.20-5.40 [facility] Comment on above: Performed By: #### H H #### [facility] [place] [facility] [address] [place] [address] Dr. Shayne Roldan WBC 9.9 103/ul Normal 4.0-11.0 [facility] [place] Comment on above: Performed By: #### H H #### [facility] [place] [facility] [address] [place] [address] Dr. Shayne Roldan MAGNESIUMon 02-25-2023 Magnesium [Mass/Vol] 1.6 mg/dL Critically low 1.8-2.4 [facility] Comment on above: Performed By: #### M G, RENAL, URIC #### [facility] [place] [facility] [address] [place] [address] Dr. Shayne Roldan RENAL FUNCTION PANELon 02-25 Albumin [Mass/Vol] 3.4 g/dL Normal 3.4-5.0 [facility] Comment on above: Performed By: #### M G, RENAL, URIC #### [facility] [place] [facility] [address] [place] [address] Dr. Shayne Roldan Calcium [Mass/Vol] 8.7 mg/dL Normal 8.5-10.1 [facility] Comment on above: Performed By: #### M G, RENAL, URIC #### [facility] [place] [facility] [address] [address] [address] Shayne Roldan Chloride [Moles/Vol] 104 mmol/L Normal 98-107 [facility] [place] Comment on above: Performed By: #### M G, RENAL, URIC #### [facility] [place] [facility] [address] [address] [address] Shayne Roldan CO2 [Moles/Vol] 25.9 mmol/L Normal 21.0-32.0 [facility] Comment on above: Performed By: #### M G, RENAL, URIC #### [facility] [place] [facility] [address] [address] [address] Shayne Roldan Creatinine [Mass/Vol] 1.19 mg/dL Critically high 0.55-1.02 [facility] Comment on above: Performed By: #### M G, RENAL, URIC #### [facility] [place] [facility] [address] [place] [address] Dr. Shayne Roldan EGFR-AF MEXICAN 55 mL/min/1.73m2 Critically low >=60 The [facility] [place] Comment on above: Performed By: #### M G, RENAL, URIC #### [facility] [place] [facility] [address] [address] [address] Shayne Roldan EGFR-NON AF MEXICAN 45 mL/min/1.73m2 Critically low >=60 The [facility] [place] Comment on above: Performed By: #### M G, RENAL, URIC #### [facility] [place] [facility] [address] [address] [address] Shayne Roldan Glucose [Mass/Vol] 193 mg/dL Critically high 74-106 T [facility] Comment on above: Performed By: #### M G, RENAL, URIC #### [facility] [place] [facility] [address] [address] [address] Shayne Roldan Phosphate [Mass/Vol] 3.2 mg/dL Normal 2.6-4.7 [facility] [place] Comment on above: Performed By: #### M G, RENAL, URIC #### [facility] [place] [facility] [address] [address] [address] Shayne Roldan Potassium [Moles/Vol] 3.9 mmol/L Normal 3.5-5.1 [facility] [place] Comment on above: Performed By: #### M G, RENAL, URIC #### [facility] [place] [facility] [address] [address] [address] Shayne Roldan Sodium [Moles/Vol] 140 mmol/L Normal 136-145 [facility] Comment on above: Performed By: #### M G, RENAL, URIC #### [facility] [place] [facility] [address] [address] [address] Shayne Roldan Urea nitrogen [Mass/Vol] 17.0 mg/dL Normal 7.0-18.0 [facility] Comment on above: Performed By: #### M G, RENAL, URIC #### [facility] [place] [facility] [address] [place] [address] Dr. Shayne Roldan UA RANDOM W/MICROSCOPICon BACTERIA TRACE Abnormal NONE SEEN [facility] Comment on above: Performed By: #### M G, RENAL, URIC #### [facility] [place] [facility] [address] [place] [address] Dr. Shayne Roldan Bilirubin Ql (U) Negative Normal NEGATIVE [facility] Comment on above: Performed By: #### M G, RENAL, URIC #### [facility] [place] [facility] [address] [place] [address] Dr. Shayne Roldan CAST NONE SEEN Normal NONE SEEN [facility] Comment on above: Performed By: #### M G, RENAL, URIC #### [facility] [place] [facility] [address] [place] [address] Dr. Shayne Roldan Clarity (U) CLEAR Normal CLEAR The [facility] [place] Comment on above: Performed By: #### M G, RENAL, URIC #### [facility] [place] [facility] [address] [place] [address] Dr. Shayne Roldan Color (U) LT. YELLOW Normal YELLOW The [facility] [place] Comment on above: Performed By: #### M G, RENAL, URIC #### [facility] [place] [facility] [address] [place] [address] Dr. Shayne Roldan Crystals LM Nom (Urine sed) NONE SEEN Normal NONE SEEN [facility] Comment on above: Performed By: #### M G, RENAL, URIC #### [facility] [place] [facility] [address] [address] [address] Shayne Roldan Epithelial cells LM Ql (Urine sed) RARE Normal NONE SEEN /RARE The [facility] [place] Comment on above: Performed By: #### M G, RENAL, URIC #### [facility] [place] [facility] [address] [address] [address] Shayne Roldan Glucose Ql (U) Negative Normal NEGATIVE [facility] Comment on above: Performed By: #### M G, RENAL, URIC #### [facility] [place] [facility] [address] [address] [address] Shayne Roldna Hemoglobin Ql (U) Negative Normal NEGATIVE [facility] Comment on above: Performed By: #### M G, RENAL, URIC #### [facility] [place] [facility] [address] [address] [address] Shayne Roldan Ketones Ql (U) Negative Normal NEGATIVE [facility] Comment on above: Performed By: #### M G, RENAL, URIC #### [facility] [place] [facility] [address] [address] [address] Shayne Roldan LEUKOCYTES Negative Normal NEGATIVE [facility] Comment on above: Performed By: #### M G, RENAL, URIC #### [facility] [place] [facility] [address] [address] [address] Shayne Roldan MUCOUS NONE SEEN Normal NONE SEEN The [facility] [place] Comment on above: Performed By: #### M G, RENAL, URIC #### [facility] [place] [facility] [address] [address] [address] Shayne Roldan Nitrite Ql (U) Negative Normal NEGATIVE [facility] Comment on above: Performed By: #### M G, RENAL, URIC #### [facility] [place] [facility] [address] [address] [address] Shayne Roldan pH (U) 5.0 [pH] Normal 5-9 [facility] [place] Comment on above: Performed By: #### M G, RENAL, URIC #### [facility] [place] [facility] [address] [address] [address] Shayne Roldan RBC 0-2 Normal 0-2 [facility] [place] Comment on above: Performed By: #### M G, RENAL, URIC #### [facility] [place] [facility] [address] [address] [address] Shayne Roldan SPEC GRAVITY 1.025 Normal 1.005-<=1.025 The [facility] Comment on above: Performed By: #### M G, RENAL, URIC #### [facility] [place] [facility] [address] [address] [address] Shayne Roldan UA PROTEIN Negative Normal NEGATIVE/ TRACE The [facility] [place] Comment on above: Performed By: #### M G, RENAL, URIC #### [facility] [place] [facility] [address] [address] [address] Shayne Roldan Urobilinogen Qn (U) 0.2 {Rogelio'U}/dL Normal 0.2 - 1. 0 The [facility] [place] Comment on above: Performed By: #### M G, RENAL, URIC #### [facility] [place] [facility] [address] [place] [address] Dr. Shayne Roldan WBC 0-2 Abnormal NONE SEEN The [facility] [place] Comment on above: Performed By: #### M G, RENAL, URIC #### [facility] [place] [facility] [address] [place] [address] Dr. Shayne Roldan URIC ACID SERUMon 02-25-2023 Urate [Mass/Vol] 6.1 mg/dL Critically high 2.6-6.0 [facility] [place] Comment on above: Performed By: #### M G, RENAL, URIC #### [facility] [place] [facility] [address] [place] [address] Dr. Shayne Roldan URINE T PROTEIN CREAT RATIOo n 02-25-2023 Protein (U) [Mass/Vol] 13.0 mg/dL Critically high <=12.0 The [facility] [place] Comment on above: Performed By: #### M G, RENAL, URIC #### [facility] [place] [facility] [address] [place] [address] Dr. Shayne Roldan UR PROT CREAT RAT 0.16 Normal [facility] Comment on above: Performed By: #### M G, RENAL, URIC #### [facility] [place] [facility] [address] [address] [address] Shayne Roldan URINE CREAT 83.60 mg/dL Normal 20.00-300.00 [facility] Comment on above: Performed By: #### M G, RENAL, URIC #### [facility] [place] [facility] [address] [address] [address] Shayne Roldan VITAMIN D 25 OHon 02-25-2023 VIT D 25-OH 41.6 ng/mL Normal [facility] Comment on above: Performed By: #### M G, RENAL, URIC #### [facility] [place] [facility] [id number] Shayne Roldan VIT D RANGES SEE BELOW Normal [facility] Comment on above: Result Comment: <20 ng/mL Vit D deficient 20 - <30 ng/mL Vit D insufficient 30 - 100 ng/mL Vit D sufficient >100 ng/mL Potential Toxicity Performed By: #### M G, RENAL, URIC #### [facility] [place] [facility] [address] [place], [place] [address] Dr. Shayne Roldan XR CHEST 2 Von [...] BRITTANY GALDAMEZ Date: 2023-02-22 16:15 Normal The [facility] MAMM SCREEN 3D PRATEEK CADon 12-15-2022 MG MAMM SCREEN 3D PRATEEK CAD Patient: DIANA CHAMPION Exam Date: 12/15/2022 : 1955 Gender:F Ordering : DR JACK HALL . Admission #: [id number] Family : Order #: [id number] CLICK HERE TO VIEW EXAM RADIOLOGY REPORT PROCEDURE: MAMMOGRAM SCREENING 3D BILATERAL CAD COMPARISON: MG MAMM SCREEN 3D PRATEEK CAD, 11/26/2021. INDICATIONS: Calculator Name NCI Breast Cancer Risk Assessment Tool 5 Year Breast Cancer Risk 1.20% Lifetime Breast Cancer Risk 4.40% Personal Breast Cancer No Personal Ovarian Cancer No Treatments Excision, radiation, chemotherapy Family Cancers None LOCATION: The [facility] [place] BREAST COMPOSITION: Almost entirely fatty. FINDINGS: DIAGNOSTIC [...] Walters MD on 12/15/2022 at 10:51 Normal [facility] XR DEXA BONE DENSITYon 12-15 XR [...] by: STEPH GRANADOS Date: 2022-12-15 09:50 Normal [facility] Fran 12-08-2022 L - -------- Specimen: [id number] Received: 12/08/22 Status: CELIA Eliza Num: [id number] Spec Type: Surgical Subm Dr: Gato Domingo MD Tissues: A Colon Biopsy (DESC COL POLYP) Procedures: HE/2, Gross/Micro L4 -------- Age/ Patient Sex Location Account Attending Physician -------- Diana Champion 67/F [id number] Gato Domingo MD -------- SPEC NUM: [id number] RECD: 12/08/221006 STATUS: CELIA KAY NUM: [id number] KENDRA: 12/08/22 [facility] DR: Gato Domingo MD ENTERED: 12/08/[address] [facility] [address]: KHRIS TYPE: Surgical DEPT: S ENTERED BY: [id number] RECV BY: [id number] ORDERED: HE/2, Gross/Micro L4 ORDERED: HE/2, Gross/Micro [...] support the above pathologic diagnosis. CPT Codes 09240 -------- -------- Specimen: [id number] Received: 12/08/22 Status: CELIA Kay Num: [id number] Spec Type: Surgical Subm Dr: Gato Domingo MD Tissues: A Colon Biopsy (DESC COL POLYP) Procedures: HE/Evonne, Gross/Micro L4 -------- Patient: Diana Champion [id number] (Continued) -------- Signed (signature on file) Eunice Rosa MD 12/09/22 1053 [facility] PAP ACOG PANEL 2: 30 to 65on 11-16-2022 . . Normal [facility] Comment on above: Performed By: #### [id number] #### [facility] [place] [facility] [address] [address] [address] Shayne Roldan Age Gdln ACOG Testing Comment [facility] Comment on above: Result Comment: <21 or >65 or no age provided Performed By: #### [id number] #### [facility] [place] [facility] [address] [address] [address] Shayne Roldan DIAGNOSIS: Comment [facility] Comment on above: Result Comment: NEGA TIVE FOR INTRAEPITHELIAL LESION OR MALIGNANCY. Performed By: #### [id number] #### [facility] [place] [facility] [address] [place] [address] Dr. Shayne Roldan Methodology: Comment [facility] Comment on above: Result Comment: This liquid based ThinPrep(R) pap test was screened with the use of an image guided system. Performed By: #### 4 [id number] #### [facility] [place] [facility] [address] [place] [address] Dr. Shayne Roldan Note: Comment [facility] Comment on above: Result Comment: The Pap smear is a screening test designed to aid in the detection of premalignant and malignant conditions of the uterine cervix. It is not a diagnostic procedure and should not be used as the sole means of detecting cervical cancer. Both false-positive and false-negative reports do occur. . Performed By: #### 4 [id number] #### [facility] [place] [facility] [address] [address] [address] Shayne Roldan Performed by: Comment [facility] Comment on above: Result Comment: Onur Aguilar Relief Salesperson (ASCP) Performed By: #### 4 [id number] #### [facility] [place] [facility] [address] [place] [address] Dr. Shayne Roldan Specimen adequacy: Comment [facility] Comment on above: Result Comment: Sati sfactory for evaluation. Endocervical and/or squamous metaplastic cells (endocervical component) are present. Performed By: #### 4 [id number] #### [facility] [place] [facility] [address] [place] [address] Dr. Shayne Roldan RENAL FUNCTION PANELon 08-19 Albumin [Mass/Vol] 3.4 g/dL Normal 3.4-5.0 [facility] Comment on above: Performed By: #### M G, RENAL, URIC #### [facility] [place] [facility] [address] [place] [address] Dr. Shayne Roldan Calcium [Mass/Vol] 8.4 mg/dL Critically low 8.5-10.1 Th [facility] Comment on above: Performed By: #### M G, RENAL, URIC #### [facility] [place] [facility] [address] [place] [address] Dr. Shayne Roldan Chloride [Moles/Vol] 103 mmol/L Normal 98-107 [facility] Comment on above: Performed By: #### M G, RENAL, URIC #### [facility] [place] [facility] [address] [place] [address] Dr. Shayne Roldan CO2 [Moles/Vol] 27.8 mmol/L Normal 21.0-32.0 [facility] Comment on above: Performed By: #### M G, RENAL, URIC #### [facility] [place] [facility] [address] [place] [address] Dr. Shayne Roldan Creatinine [Mass/Vol] 1.02 mg/dL Normal 0.55-1.02 [facility] Comment on above: Performed By: #### M G, RENAL, URIC #### [facility] [place] [facility] [address] [place] [address] Dr. Shayne Roldan EGFR-AF MEXICAN >60 Normal >=60 [facility] Comment on above: Performed By: #### M G, RENAL, URIC #### [facility] [place] [facility] [address] [place] [address] Dr. Shayne Roldan EGFR-NON AF MEXICAN 54 mL/min/1.73m2 Critically low >=60 [facility] Comment on above: Performed By: #### M G, RENAL, URIC #### [facility] [place] [facility] [address] [place] [address] Dr. Shayne Roldan Glucose [Mass/Vol] 110 mg/dL Critically high 74-106 T [facility] Comment on above: Performed By: #### M G, RENAL, URIC #### [facility] [place] [facility] [address] [place] [address] Dr. Shayne Roldan Phosphate [Mass/Vol] 2.3 mg/dL Critically low 2.6-4.7 [facility] Comment on above: Performed By: #### M G, RENAL, URIC #### [facility] [place] [facility] [address] [place] [address] Dr. Shayne Roldan Potassium [Moles/Vol] 3.2 mmol/L Critically low 3.5-5.1 [facility] Comment on above: Performed By: #### M Poncho, RENAL, URIC #### [facility] [place] [facility] [address] [place] [address] Dr. Shayne Roldan Sodium [Moles/Vol] 138 mmol/L Normal 136-145 [facility] Comment on above: Performed By: #### M G, RENAL, URIC #### [facility] [place] [facility] [address] [place] [address] Dr. Shayne Roldan Urea nitrogen [Mass/Vol] 14.0 mg/dL Normal 7.0-18.0 [facility] Comment on above: Performed By: #### M G, RENAL, URIC #### [facility] [place] [facility] [address] [place] [address] Dr. Shayne Roldan PTH INTACTon 08-06-2022 PTH, Intact 40 pg/mL Normal 15-65 [facility] Comment on above: Performed By: #### M G, RENAL, URIC #### [facility] [place] [facility] [address] [place] [address] Dr. Shayne Roldan HEMOGRAM AND PLATELon 2021 Hematocrit (Bld) [Volume fraction] 39.8 % Normal 36.0-48.0 [facility] Comment on above: Performed By: #### M G, RENAL, URIC #### [facility] [place] [facility] [address] [place] [address] Dr. Shayne Roldan Hemoglobin (Bld) [Mass/Vol] 13.4 g/dL Normal 12.0-16.0 [facility] [place] Comment on above: Performed By: #### M G, RENAL, URIC #### [facility] [place] [facility] [address] [place] [address] Dr. Shayne Roldan MCH (RBC) [Entitic mass] 30.5 pg Normal 26.7-34.0 [facility] Comment on above: Performed By: #### M G, RENAL, URIC #### [facility] [place] [facility] [address] [place] [address] Dr. Shayne Roldan MCHC (RBC) [Mass/Vol] 33.7 g/dL Normal 29.9-35.2 The [facility] [place] Comment on above: Performed By: #### M G, RENAL, URIC #### [facility] [place] [facility] [address] [place] [address] Dr. Shayne Roldan MCV (RBC) [Entitic vol] 90.5 fL Normal 81.0-99.0 The [facility] [place] Comment on above: Performed By: #### M G, RENAL, URIC #### [facility] [place] [facility] [address] [place] [address] Dr. Shayne Roldan PLT 299 103/ul Normal 150-450 [facility] [place] Comment on above: Performed By: #### M G, RENAL, URIC #### [facility] [place] [facility] [address] [place] [address] Dr. Shayne Roldan RBC 4.40 106/ul Normal 4.20-5.40 The [facility] [place] Comment on above: Performed By: #### M G, RENAL, URIC #### [facility] [place] [facility] [address] [place] [address] Dr. Shayne Roldan WBC 8.8 103/ul Normal 4.0-11.0 The [facility] [place] Comment on above: Performed By: #### M G, RENAL, URIC #### [facility] [place] [facility] [address] [place] [address] Dr. Shayne Roldan MAGNESIUMon 08-05-2022 Magnesium [Mass/Vol] 1.5 mg/dL Critically low 1.8-2.4 The [facility] [place] Comment on above: Performed By: #### M G, RENAL, URIC #### [facility] [place] [facility] [address] [address] [address] Shayne Roldan RENAL FUNCTION PANELon 08-05 Albumin [Mass/Vol] 3.5 g/dL Normal 3.4-5.0 [facility] Comment on above: Performed By: #### M G, RENAL, URIC #### [facility] [place] [facility] [address] [address] [address] Shayne Roldan Calcium [Mass/Vol] 8.4 mg/dL Critically low 8.5-10.1 [facility] Comment on above: Performed By: #### M G, RENAL, URIC #### [facility] [place] [facility] [address] [address] [address] Shayne Roldan Chloride [Moles/Vol] 101 mmol/L Normal 98-107 [facility] Comment on above: Performed By: #### M G, RENAL, URIC #### [facility] [place] [facility] [address] [address] [address] Shayne Roldan CO2 [Moles/Vol] 29.5 mmol/L Normal 21.0-32.0 [facility] Comment on above: Performed By: #### M G, RENAL, URIC #### [facility] [place] [facility] [address] [address] [address] Shayne Roldan Creatinine [Mass/Vol] 1.04 mg/dL Critically high 0.55-1.02 [facility] Comment on above: Performed By: #### M G, RENAL, URIC #### [facility] [place] [facility] [address] [address] [address] Shayne Roldan EGFR-AF MEXICAN >60 Normal >=60 [facility] Comment on above: Performed By: #### M G, RENAL, URIC #### [facility] [place] [facility] [address] [address] [address] Shayne Roldan EGFR-NON AF MEXICAN 53 mL/min/1.73m2 Critically low >=60 [facility] Comment on above: Performed By: #### M G, RENAL, URIC #### [facility] [place] [facility] [address] [address] [address] Shayne Roldan Glucose [Mass/Vol] 92 mg/dL Normal 74-106 [facility] Comment on above: Performed By: #### M G, RENAL, URIC #### [facility] [place] [facility] [address] [address] [address] Shayne Roldan Phosphate [Mass/Vol] 2.4 mg/dL Critically low 2.6-4.7 [facility] Comment on above: Performed By: #### M G, RENAL, URIC #### [facility] [place] [facility] [address] [place] [address] Dr. Shayne Roldan Potassium [Moles/Vol] 2.8 mmol/L Critically low 3.5-5.1 [facility] Comment on above: Performed By: #### M G, RENAL, URIC #### [facility] [place] [facility] [address] [place] [address] Dr. Shayne Roldan Sodium [Moles/Vol] 137 mmol/L Normal 136-145 [facility] Comment on above: Performed By: #### M G, RENAL, URIC #### [facility] [place] [facility] [address] [place] [address] Dr. Shayne Roldan Urea nitrogen [Mass/Vol] 10.0 mg/dL Normal 7.0-18.0 [facility] Comment on above: Performed By: #### M G, RENAL, URIC #### [facility] [place] [facility] [address] [place] [address] Dr. Shayne Roldan UA RANDOM W/MICROSCOPICon BACTERIA SMALL Abnormal NONE SEEN The [facility] [place] Comment on above: Performed By: #### U AMIC #### [facility] [place] [facility] [address] [place] [address] Dr. Shayne Roldan Bilirubin Ql (U) Negative Normal NEGATIVE [facility] Comment on above: Performed By: #### U AMIC #### [facility] [place] [facility] [address] [place] [address] Dr. Shayne Roldan CAST NONE SEEN Normal NONE SEEN The [facility] [place] Comment on above: Performed By: #### U AMIC #### [facility] [place] [facility] [address] [place] [address] Dr. Shayne Roldan Clarity (U) CLEAR Normal CLEAR The [facility] [place] Comment on above: Performed By: #### U AMIC #### [facility] [place] [facility] [address] [address] [address] Shayne Roldan Color (U) LT. YELLOW Normal YELLOW The [facility] [place] Comment on above: Performed By: #### U AMIC #### [facility] [place] [facility] [address] [address] [address] Shayne Roldan Crystals LM Nom (Urine sed) NONE SEEN Normal NONE SEEN [facility] Comment on above: Performed By: #### U AMIC #### [facility] [place] [facility] [address] [address] [address] Shayne Roldan Epithelial cells LM Ql (Urine sed) FEW Abnormal NONE SEEN /RARE The [facility] Comment on above: Performed By: #### U AMIC #### [facility] [place] [facility] [address] [place] [address] Dr. Shayne Roldan Glucose Ql (U) Negative Normal NEGATIVE The [facility] Comment on above: Performed By: #### U AMIC #### [facility] [place] [facility] [address] [address] [address] Shayne Roldan Hemoglobin Ql (U) Negative Normal NEGATIVE [facility] Comment on above: Performed By: #### U AMIC #### [facility] [place] [facility] [address] [place] [address] Dr. Shayne Roldan Ketones Ql (U) Negative Normal NEGATIVE [facility] Comment on above: Performed By: #### U AMIC #### [facility] [place] [facility] [address] [address] [address] Shayne Roldan LEUKOCYTES TRACE Abnormal NEGATIVE The [facility] [place] Comment on above: Performed By: #### U AMIC #### [facility] [place] [facility] [address] [address] [address] Shayne Roldan MUCOUS NONE SEEN Normal NONE SEEN [facility] Comment on above: Performed By: #### U AMIC #### [facility] [place] [facility] [address] [place] [address] Dr. Shayne Roldan Nitrite Ql (U) Negative Normal NEGATIVE The [facility] Comment on above: Performed By: #### U AMIC #### [facility] [place] [facility] [address] [place] [address] Dr. Shayne Roldan pH (U) 6.0 [pH] Normal 5-9 The [facility] [place] Comment on above: Performed By: #### U AMIC #### [facility] [place] [facility] [address] [place] [address] Dr. Shayne Roldan RBC NONE SEEN Abnormal 0-2 The [facility] Comment on above: Performed By: #### U AMIC #### [facility] [address] [place] [address] Dr. Shayne Roldan SPEC GRAVITY <=1.005 Abnormal 1.005-<=1.025 [facility] Comment on above: Performed By: #### U AMIC #### [facility] [place] [facility] [address] [place] [address] Dr. Shayne Roldan UA PROTEIN Negative Normal NEGATIVE/ TRACE The [facility] Comment on above: Performed By: #### U AMIC #### [facility] [place] [facility] [address] [place] [address] Dr. Shayne Roldan Urobilinogen Qn (U) 0.2 {Rogelio'U}/dL Normal 0.2 - 1. 0 [facility] Comment on above: Performed By: #### U AMIC #### [facility] [place] [facility] [address] [place] [address] Dr. Shayne Roldan WBC 5-10 Abnormal NONE SEEN The [facility] Comment on above: Performed By: #### U AMIC #### [facility] [place] [facility] [address] [place] [address] Dr. Shayne Roldan URIC ACID SERUMon 08-05-2022 Urate [Mass/Vol] 6.5 mg/dL Critically high 2.6-6.0 [facility] Comment on above: Performed By: #### M G, RENAL, URIC #### [facility] [place] [facility] [address] [place] [address] Dr. Shayne Roldan URINE T PROTEIN CREAT RATIOo n 08-05-2022 Protein (U) [Mass/Vol] 4.8 mg/dL Normal <=12.0 The [facility] Comment on above: Performed By: #### U RTPCR #### [facility] [place] [facility] [address] [place] [address] Dr. Shayne Roldan UR PROT CREAT RAT 0.09 Normal [facility] Comment on above: Performed By: #### U RTPCR #### [facility] [place] [facility] [address] [address] [address] Shayne Roldan URINE CREAT 52.65 mg/dL Normal 20.00-300.00 [facility] Comment on above: Performed By: #### U RTPCR #### [facility] [place] [facility] [address] [address] [address] Shayne Roldan VITAMIN D 25 OHon 08-05-2022 VIT D 25-OH 38.9 ng/mL Normal [facility] Comment on above: Performed By: #### M G, RENAL, URIC #### [facility] [place] [facility] [address] [place] [address] Dr. Shayne Roldan VIT D RANGES SEE BELOW Normal [facility] Comment on above: Result Comment: <20 ng/mL Vit D deficient 20 - <30 ng/mL Vit D insufficient 30 - 100 ng/mL Vit D sufficient >100 ng/mL Potential Toxicity Performed By: #### M G, RENAL, URIC #### [facility] [place] [facility] [address] [place] [address] Dr. Shayne Roldan IMMUNOGLOBULINS IGA/IGM/IGG/ IGE QUANTITAon 07-12-2022 Immunoglobulin A, Qn, Serum 295 mg/dL Normal 87-352 [facility] Comment on above: Result Comment: Perf ormed at: CB Performed By: #### M G, RENAL, URIC #### [facility] [place] [facility] [address] [place] [address] Dr. Shayne Roldan Immunoglobulin E, Total 32 IU/mL Normal 6-495 [facility] Comment on above: Result Comment: Perf ormed at: BN Performed By: #### M G, RENAL, URIC #### [facility] [place] [facility] [address] [place] [address] Dr. Shayne Roldan Immunoglobulin G, Qn, Serum 729 mg/dL Normal 586-1602 [facility] Comment on above: Result Comment: Perf ormed at: CB Performed By: #### M G, RENAL, URIC #### [facility] [place] [facility] [address] [place] [address] Dr. Shayne Roldan Immunoglobulin M, Qn, Serum 75 mg/dL Normal 26-217 [facility] Comment on above: Result Comment: Perf ormed at: CB Performed By: #### M G, RENAL, URIC #### [facility] [place] [facility] [address] [place] [address] Dr. Shayne Roldan Abstracton 07-08-2022 Abstract [id number] Nell Champion Meng 1955 F Date Provider Department Center 07/08/2022 JOHANNA MEDINA [facility] Family History Problem Relation Age of Onset Heart failure Mother Heart disease Father Family Status - Relation Status Age at Mother Father Normal [facility] CBC AUTO DIFFon 07-05-2022 BASO # 0.1 103/ul Normal 0.0-0.1 [facility] Comment on above: Performed By: #### M G, RENAL, URIC #### [facility] [place] [facility] [address] [place] [address] Dr. Shayne Roldan Basophils/100 WBC (Bld) 0.7 % Normal 0.2-2.0 [facility] Comment on above: Performed By: #### M G, RENAL, URIC #### [facility] [place] [facility] [address] [place] [address] Dr. Shayne Roldan EO # 0.4 103/ul Normal 0.0-0.7 [facility] Comment on above: Performed By: #### M G, RENAL, URIC #### [facility] [place] [facility] [address] [place] [address] Dr. Shayne Roldan Eosinophils/100 WBC (Bld) 4.4 % Normal 0.9-7.0 [facility] Comment on above: Performed By: #### M G, RENAL, URIC #### [facility] [place] [facility] [address] [place] [address] Dr. Shayne Roldan Erythrocyte distribution width (RBC) [Ratio] 12.6 % Normal 11.0-15.0 [facility] Comment on above: Performed By: #### M G, RENAL, URIC #### [facility] [place] [facility] [address] [place] [address] Dr. Shayne Roldan Hematocrit (Bld) [Volume fraction] 40.2 % Normal 36.0-48.0 [facility] Comment on above: Performed By: #### M G, RENAL, URIC #### [facility] [place] [facility] [address] [place] [address] Dr. Shayne Roldan Hemoglobin (Bld) [Mass/Vol] 13.6 g/dL Normal 12.0-16.0 [facility] Comment on above: Performed By: #### M G, RENAL, URIC #### [facility] [place] [facility] [address] [place] [address] Dr. Shayne Roldan IG # 0.07 10e3/ul Critically high 0.00-0.03 [facility] Comment on above: Performed By: #### M G, RENAL, URIC #### [facility] [place] [facility] [address] [place] [address] Dr. Shayne Roldan IG % 0.8 % Critically high 0.0-0.5 [facility] Comment on above: Performed By: #### M G, RENAL, URIC #### [facility] [address] [place] [address] Dr. Shayne Roldan LYMPH # 2.3 103/ul Normal 1.2-3.8 [facility] Comment on above: Performed By: #### M G, RENAL, URIC #### [facility] [place] [facility] [address] [place] [address] Dr. Shayne Roldan Lymphocytes/100 WBC (Bld) 24.7 % Normal 20.5-60.0 [facility] Comment on above: Performed By: #### M G, RENAL, URIC #### [facility] [place] [facility] [address] [place] [address] Dr. Shayne Roldan MANUAL DIFF REQ NO Normal [facility] Comment on above: Performed By: #### M G, RENAL, URIC #### [facility] [place] [facility] [address] [place] [address] Dr. Shayne Roldan MCH (RBC) [Entitic mass] 30.7 pg Normal 26.7-34.0 [facility] Comment on above: Performed By: #### M G, RENAL, URIC #### [facility] [place] [facility] [address] [address] [address] Shayne Roldan MCHC (RBC) [Mass/Vol] 33.8 g/dL Normal 29.9-35.2 [facility] Comment on above: Performed By: #### M G, RENAL, URIC #### [facility] [address] [address] [address] Shayne Roldan MCV (RBC) [Entitic vol] 90.7 fL Normal 81.0-99.0 [facility] Comment on above: Performed By: #### M G, RENAL, URIC #### [facility] [place] [facility] [address] [place] [address] Dr. Shayne Roldan MONO # 0.7 103/ul Normal 0.3-0.8 [facility] [place] Comment on above: Performed By: #### M G, RENAL, URIC #### [facility] [place] [facility] [address] [place] [address] Dr. Shayne Roldan Monocytes/100 WBC (Bld) 7.7 % Normal 1.7-12.0 [facility] [place] Comment on above: Performed By: #### M G, RENAL, URIC #### [facility] [place] [facility] [address] [place] [address] Dr. Shayne Roldan NEUT # 5.7 103/ul Normal 1.4-6.5 [facility] [place] Comment on above: Performed By: #### M G, RENAL, URIC #### [facility] [place] [facility] [address] [address] [address] Shayne Roldan Neutrophils/100 WBC (Bld) 61.7 % Normal 43.0-75.0 [facility] [place] Comment on above: Performed By: #### M G, RENAL, URIC #### [facility] [place] [facility] [address] [address] [address] Shayne Roldan Platelet mean volume (Bld) [Entitic vol] 8.8 fL Critically low 9.5-13.5 [facility] Comment on above: Performed By: #### M G, RENAL, URIC #### [facility] [place] [facility] [address] [place] [address] Dr. Shayne Roldan PLT 279 103/ul Normal 150-450 [facility] Comment on above: Performed By: #### M G, RENAL, URIC #### [facility] [place] [facility] [address] [place], [place] [address] Dr. Shayne Roldan RBC 4.43 106/ul Normal 4.20-5.40 [facility] Comment on above: Performed By: #### M G, RENAL, URIC #### [facility] [place] [facility] [address] [place], [place] [address] Dr. Shayne Roldan WBC 9.1 103/ul Normal 4.0-11.0 [facility] Comment on above: Performed By: #### M G, RENAL, URIC #### [facility] [place] [facility] [address] [address] [address] Shayne Roldan Cov[facility]on SARS-CoV-2 (COVID-19) RNA KAYLEE+probe Ql (Unsp spec) Not detected Normal NOT DETECTED The [facility] [place] Comment on above: Result Comment: This test is not yet approved or cleared by the [place] FDA. When there are no FDA-approved or cleared tests available, and other criteria are met, FDA can make tests available under an emergency access mechanism called an Emergency Use Authorization (EUA). The EUA for this test is supported by the [place] of Health and Human Service's (HHS's) declaration [...] By: #### M G, RENAL, URIC #### [facility] [place] [facility] [address] [place], [place] [address] Dr. Shayne Roldan XR CHEST 2 Von [...] NARDA LONDONO Date: 2022-06-08 19:58 Normal [facility] Covid-19 PCR ([facility])on SARS-CoV-2 (COVID-19) RNA KAYLEE+probe Ql (Unsp spec) Not detected Normal NOT DETECTED The [facility] [place] Comment on above: Result Comment: This test is not yet approved or cleared by the [place] FDA. When there are no FDA-approved or cleared tests available, and other criteria are met, FDA can make tests available under an emergency access mechanism called an Emergency Use Authorization (EUA). The EUA for this test is supported by the [place] of Health and Human Service's (HHS's) declaration [...] consistent with SARS-CoV-2. Performed By: #### [facility] #### [facility] [place] [facility] [address] [place] [address] Dr. Shayne Roldan DEXA AXIALon 03-01-2022 DEXA AXIAL [facility] Department of Radiology [address] [place] [phone] Patient Name: DIANA CHAMPION : [...] characteristics. Electronically signed: Luzma Fernandez. Transcribed by: [email or web address], User Resident: Electronically Signed by: LUZMA FERNANDEZ @ 03/02/2022 01:07 PM Normal [facility] SCOLIOSIS 2 [facility] 02-24-2022 SCOLIOSIS 2 [facility] Department of Radiology [address] [place] [id number] Patient Name: DIANA CHAMPION : 1955 Sex: F Age: Race: White Pt. Location: Patient Status: D Ordered Date: 02/24/2022 1:25:00 PM Completed Date: 02/24/2022 01:44 PM Requesting Provider: CINDA ANTONIO Attending Provider: Report Copy To: Signs & Symptoms: M43.10 Spondylolisthesis, site unspecified I10 History: Comments: Views (X-RAY, SCOLIOSIS): PA, Lateral evaluate Exam: SCOLIOSIS 2 [facility] Scoliosis. Worsening pain. Frontal and lateral thoracolumbar spine IMPRESSION: 1. Diffuse disc disease and facet arthritis. Right convex mid lumbar curvature measuring 16 degrees. Interbody fusion hardware lower lumbar spine. Electronically signed: Hugo Lynn. Transcribed by: [email or web address], User Resident: Electronically Signed by: HUGO LYNN @ 02/26/2022 11:07 AM Normal [facility] Comment on above: Order Comment: Views (X-RAY, SCOLIOSIS): PA, Lateral evaluate CT LUMBAR SPINE W CONTRASTon 01-24-2022 CT LUMBAR SPINE W CONTRAST [facility] Department of Radiology [address] [place] [id number] Patient Name: DIANA CHAMPION : 1955 Sex: F Age: Race: White Pt. Location: Patient Status: D Ordered Date: 01/09/2022 9:00:00 AM Completed Date: 01/24/2022 03:26 PM Requesting Provider: JOO LINN Attending Provider: JOO LINN Report Copy To: UNKNOWN, PHYSICIAN Signs & Symptoms: M54.16 Radiculopathy, lumbar region I10 History: [place] Comments: , CT MYELOGRAM>PAPER WORK IN CHART [...] L1-2. Electronically signed: Gaurang Lawrence. Transcribed by: [email or web address], User Resident: Electronically Signed by: GAURANG LAWRENCE @ 01/26/2022 08:58 AM Normal [facility] Comment on above: Order Comment: , CT MYELOGRAM>PAPER WORK IN CHART LUMBAR MYELOGRAMon 2 LUMBAR MYELOGRAM [facility] Department of Radiology [address] [place] [id number] Patient Name: DIANA CHAMPION : 1955 Sex: F Age: Race: White Pt. Location: Patient Status: O Ordered Date: 01/09/2022 9:00:00 AM Completed Date: 01/24/2022 02:37 PM Requesting Provider: JOO LINN Attending Provider: JOO LINN Report Copy To: UNKNOWN, PHYSICIAN Signs & Symptoms: M54.16 Radiculopathy, lumbar region I10 History: Jessica Is patient on thinners? 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 Consent was obtained. Timeout: [place] protocol timeout verification performed. PROCEDURE: Estimated blood [...] report. Electronically signed: Greg Marlow. Transcribed by: [email or web address], User Resident: DEBBIE JI Electronically Signed by: GREG MARLOW @ 01/24/2022 04:07 PM I personally read this/these film(s) with this resident Normal [facility] Comment on above: Order Comment: , CT MYELOGRAM> PAPER WORK SCANNED IN CHART , CT MYELOGRAM> PAPER WORK SCANNED IN CHART , , , Ordering Provider - JOO LINN MD , HIP LEFT 1 OR 2 VWS WITH PEL VISon 01-06-2022 HIP LEFT 1 OR 2 VWS WITH PELVIS [facility] Department of Radiology [address] [place] [id number] Patient Name: DIANA CHAMPION : 1955 Sex: F Age: Race: White Pt. Location: Patient Status: D Ordered Date: 12/21/2021 10:45:00 AM Completed Date: 01/06/2022 01:24 PM Requesting Provider: JOO LINN Attending Provider: JOO LINN Report Copy To: Signs & Symptoms: Z96.642 Presence of left artificial hip joint I10 History: [place] Comments: Evaluate Exam: HIP LEFT 1 OR 2 VWS WITH PELVIS HIP LEFT 1 OR 2 VWS WITH PELVIS HISTORY: Hip replacement, follow-up. COMPARISON: None. IMPRESSION: 1. Redemonstrated left hip prosthesis without visible complication. 2. Advanced right hip arthritis without significant change with advanced joint space narrowing. Unchanged lumbosacral fusion hardware. Electronically signed: Joe Matthew. Transcribed by: [email or web address], User Resident: Electronically Signed by: JOE MATTHEW @ 01/09/2022 04:45 PM Normal [facility] Comment on above: Order Comment: Evalu ate Vital Signs Date Time Vital Sign Value Performing Clinician Facility 08-17-2023 09:20-0400 Body height 165.1 cm Herberth Joana Other [facility] Other 08-17-2023 09:20-0400 Body mass index (BMI) [Ratio] 38.1 kg/m2 Herberth Joana Other [facility] Other 08-17-2023 09:20-0400 Body temperature 98.8 [degF] Herberth Joana Other [facility] Other 08-17-2023 09:20-0400 Body weight 103.87 kg Herberth Joana Other [facility] Other 08-17-2023 09:20-0400 Diastolic blood pressure 85 mm[Hg] Herberth Joana Other [facility] Other 08-17-2023 09:20-0400 Respiratory rate 18 /min Herberth Joana Other [facility] Other 08-17-2023 09:20-0400 SaO2% (BldA) [Mass fraction] 94 % Herberth Joana Other [facility] Other 08-17-2023 09:20-0400 Systolic blood pressure 151 mm[Hg] Herberth Joana Other [facility] Other 03-02-2023 10:00-0400 Body height 165.1 cm Herberth Joana Other [facility] Other 03-02-2023 10:00-0400 Body mass index (BMI) [Ratio] 37.29 kg/m2 Herberth Joana Other [facility] Other 03-02-2023 10:00-0400 Body temperature 98.9 [degF] Herberth Joana Other [facility] Other 03-02-2023 10:00-0400 Body weight 101.65 kg Herberth Joana Other [facility] Other 03-02-2023 10:00-0400 Diastolic blood pressure 76 mm[Hg] Herberth Joana Other [facility] Other 03-02-2023 10:00-0400 Respiratory rate 20 /min Herberth Joana Other [facility] Other 03-02-2023 10:00-0400 SaO2% (BldA) [Mass fraction] 96 % Herberth Joana Other [facility] Other 03-02-2023 10:00-0400 Systolic blood pressure 136 mm[Hg] Herberth Joana Other [facility] Other 12-08-2022 09:30-0500 Diastolic blood pressure 59 mm[Hg] MD Shaikh Ohara Work Phone: [facility] 12-08-2022 09:30-0500 Heart rate 55 /min MD Shaikh Ohara Work Phone: [facility] 12-08-2022 09:30-0500 Respiratory rate 16 /min MD Shaikh Ohara Work Phone: [facility] 12-08-2022 09:30-0500 SaO2% (BldA) [Mass fraction] 96 % MD Shaikh Ohara Work Phone: [facility] 12-08-2022 09:30-0500 Systolic blood pressure 112 mm[Hg] MD Shaikh Ohara Work Phone: [facility] 12-08-2022 06:54-0500 Body height 162.56 cm MD Shaikh Ohara Work Phone: [facility] 12-08-2022 06:54-0500 Body temperature 98.2 [degF] MD Shaikh Ohara Work Phone: [facility] 12-08-2022 06:54-0500 Body weight 104.32 kg MD Shaikh Ohara Work Phone: [facility] 08-09-2022 11:00-0400 Body height 165.1 cm Herberth Joana Other [facility] Other 08-09-2022 11:00-0400 Body mass index (BMI) [Ratio] 37.87 kg/m2 Herberth Joana Other [facility] Other 08-09-2022 11:00-0400 Body temperature 97.2 [degF] Herberth Joana Other [facility] Other 08-09-2022 11:00-0400 Body weight 103.24 kg Herberth Joana Other [facility] Other 08-09-2022 11:00-0400 Diastolic blood pressure 88 mm[Hg] Herberth Joana Other [facility] Other 08-09-2022 11:00-0400 Respiratory rate 20 /min Herberth Joana Other [facility] Other 08-09-2022 11:00-0400 SaO2% (BldA) [Mass fraction] 95 % Herberth Joana Other [facility] Other 08-09-2022 11:00-0400 Systolic blood pressure 133 mm[Hg] Herberth Joana Other [facility] Other 11-17-2021 10:40-0500 Body height 165.1 cm Herberth Joana Other [facility] Other 11-17-2021 10:40-0500 Body mass index (BMI) [Ratio] 37.97 kg/m2 Herberth Joana Other [facility] Other 11-17-2021 10:40-0500 Body temperature 97.8 [degF] Herberth Joana Other [facility] Other 11-17-2021 10:40-0500 Body weight 103.51 kg Herberth Joana Other [facility] Other 11-17-2021 10:40-0500 Diastolic blood pressure 70 mm[Hg] Herberth Joana Other [facility] Other 11-17-2021 10:40-0500 Respiratory rate 18 /min Herberth Joana Other [facility] Other 11-17-2021 10:40-0500 SaO2% (BldA) [Mass fraction] 94 % Herberth Joana Other [facility] Other 11-17-2021 10:40-0500 Systolic blood pressure 130 mm[Hg] Herberth Joana Other [facility] Other 08-30-2021 13:15-0400 Body height 165.1 cm Rena Ginty Other [facility] Other 08-30-2021 13:15-0400 Body mass index (BMI) [Ratio] 36.61 kg/m2 Rena Ginty Other [facility] Other 08-30-2021 13:15-0400 Body temperature 98.7 [degF] Rena Ginty Other [facility] Other 08-30-2021 13:15-0400 Body weight 99.79 kg Rena Ginty Other [facility] Other 08-30-2021 13:15-0400 SaO2% (BldA) [Mass fraction] 90 % Rena Ginty Other [facility] Other Encounters Encounter Date Encounter Type Care [...] 09-07-2023 End: 09-07-2023 ambulatory Herberth Joana Other [facility] Other Start: 09-07-2023 Telephone encounter Herberth Joana [facility] Start: 08-28-2023 End: 08-28-2023 ambulatory Herberth Joana Other [facility] Other Start: 08-28-2023 Telephone encounter Herberth Joana [facility] Start: 08-21-2023 End: 08-22-2023 ambulatory Jayshree Vargas MD Facility: [facility] Start: 08-17-2023 End: 08-17-2023 ambulatory Herberth Joana Other [facility] Other Start: 08-17-2023 Office outpatient visit 25 minutes Herberth Joana [facility] [place] Start: 05-08-2023 End: 05-08-2023 ambulatory HETAL [facility] Start: 04-04-2023 End: 04-04-2023 ambulatory Dimitry LEV Facility:[facility] Start: 03-24-2023 End: 03-25-[address] STEPH GRANADOS Facility:[facility] Start: 03-23-2023 ambulatory JOO LINN [facility] Start: 03-02-2023 End: 03-02-2023 ambulatory Herberth Joana Other [facility] Other Start: 03-02-2023 Office outpatient visit 25 minutes Herberth Joana [facility] [place] Start: 02-25-2023 End: 02-26-2023 ambulatory HERBERTH JOANA Facility:[facility] Start: 02-22-2023 End: 02-23-2023 ambulatory BO MCCLAIN . Facility:[facility] Start: 12-15-2022 End: 12-16-[address] JACK HALL . Facility:[facility] Start: 12-08-2022 End: 12-08-2022 ambulatory Shaikh Lev Facility:[facility] Start: 12-08-2022 End: 12-08-2022 Admission to same day surgery center MD Shaikh Ohara Work Phone: [facility] Work Phone: Start: 12-08-2022 End: 12-08-2022 ambulatory MD Shaikh Ohara Work Phone: [facility] Work Phone: Start: 11-11-2022 End: 11-11-[address] JACK HALL . Facility:[facility] Start: 11-09-2022 End: 11-09-2022 ambulatory Azkatherine Gonzalezs Other [facility] Other Start: 11-09-2022 Telephone encounter Azkatherine Ruelashous [facility] Start: 08-19-2022 End: 08-20-2022 ambulatory HERBERTH JOANA Facility: Start: 08-09-2022 End: 08-09-2022 ambulatory Herberth Joana Other [facility] Other Start: 08-09-2022 Office outpatient visit 10 minutes Herberth Joana [facility] Start: 08-09-2022 Telephone encounter Herberth Joana [facility] Start: 08-05-2022 Telephone encounter Herberth Joana [facility] Start: 08-05-2022 End: 08-06-2022 ambulatory HERBERTH JOANA [employer] Other Start: 07-08-2022 End: 07-08-2022 ambulatory Gato Domingo Other [facility] Other Start: 09-02-2022 Telephone encounter Gato leal [facility] Start: 07-05-2022 End: 07-06-2022 ambulatory SAUNDERS H FAJavonWAD Facility:[facility] Start: 06-08-2022 End: 06-09-2022 ambulatory SAUNDERS H FAWWAD Facility:[facility] Start: 06-07-2022 End: 06-07-2022 ambulatory SAUNDERS H FAWWAD Facility:[facility] Start: 01-24-2022 End: 01-25-2022 ambulatory PHYSICIAN UNKNOWN Facility:[facility] Start: 11-17-2021 End: 11-17-2021 ambulatory Herberth Joana Other [facility] Other Start: 11-17-2021 Office outpatient visit 15 minutes Herberth Joana [facility] Start: 08-30-2021 Office outpatient visit 15 minutes Rena Ginty [facility] [place] Start: 09-11-2020 End: 09-11-2020 Chart abstracting Miguelito Buck Work Phone: Hematology/Oncology Start: 09-11-2020 End: 09-11-2020 [facility] encounter [facility] Start: 09-11-2020 Results Only External Provider [facility]ter [facility] Start: 09-30-2019 End: 09-30-2019 Patient encounter procedure [facility] [place] Start: 07-07-2017 End: 07-07-2017 Admission to day surgery [facility] Start: 05-24-2004 Evaluation and management of inpatient [facility] [place] Start: 04-26-2004 Evaluation and management of inpatient [facility] [place] Procedures Date Procedure Procedure Detail Performing Clinician Start: 12-08-2022 Colonoscopy MD Shaikh Ohara Work Phone: Start: 09-11-2020 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 Peanut Farmer al Provider Start: 09-11-2020 EXTERNAL LAB External P rovider Start: 09-11-2020 EXTERNAL PROCEDURE Exte rnal Provider Start: 09-30-2019 Ultrasonography of b ilateral kidneys Steph Collier Plan of Treatment Date Care Activity Detail Author Start: 12-08-2022 [facility] Start: 07-07-2020 Influenza vaccination INFLUENZA (#1) [facility] Start: 2006 SHINGRIX VACCINE (1 of 2) SHINGRIX VACCINE (1 of 2) [facility] Start: 2006 Tuberculosis screening COLORECTAL CANCER SCREENING,SEE MODIFIER [facility] Start: 2001 DIABETES SCREEN DIABETES SCREEN [facility] Start: 2001 LIPID SCREEN LIPID SCREEN [facility] Start: 1996 Mammography MAMMOGRAM [facility] Start: 1986 HPV TESTING HPV TESTING [facility] Start: 1977 PAP TESTING PAP TESTING [facility] Start: 1975 Urine microalbumin profile DTAP,TDAP,TD (1 - Tdap) [facility] Start: 1974 HEPATITIS C SCREENING HEPATITIS C SCREENING [facility] Start: 1974 HIV SCREENING HIV SCREENING [facility] Patient Education Colon Polypect shahram Hemorrhoids (DC) Diverticulosis (DC) [facility] Work Phone: [facility] Immunizations Immunization Date Immunization Notes Care Provider Fa cility 07-18-2018 Depo-Medrol 40 mg Rena Gint y Other [facility] Other 01-31-2018 Depo-Medrol 40 mg Rena Gint y Other [facility] Other 08-09-2017 influenza, seasonal, injectable, preservative free Rena Ginty Other [employer] [facility] Other Payers Date Payer Category Payer Unknown 2022 Self-pay [id number] 2021 Medicare [id number] 2020 Medicaid [id number] 2019 Medicaid MEDICAID [facility] MEDICAID [id number] 2019-Present Medicaid [id number] 2016 Medicare MEDICARE MEDICAR E A AND B [id number] 2016-Present [place] [id number] 1959 Unknown [id number] 1955 Unknown [id number] 2.16.840.1.524997.3.579.2.647 1955 Unknown [id number] 2.16.840.1.994567.3.579.2.593 1955 Unknown [id number] 2.16.840.1.109223.3.579.2.593 1955 Unknown [id number] 2.16.840.1.870300.3.579.2.593 1955 Unknown [id number] 2.16.840.1.073617.3.579.2.593 1955 Unknown [id number] 2.16.840.1.363618.3.579.2.593 1955 Unknown [id number] 2.16.840.1.524173.3.579.2.593 1955 Unknown [id number] 2.16.840.1.947985.3.579.2.593 1955 Unknown [id number] 2.16.840.1.029010.3.579.2.593 1955 Unknown [id number] 2.16.840.1.280980.3.579.2.593 1955 Unknown [id number] 2.16.840.1.800070.3.579.2.593 1955 Unknown [id number] 2.16.840.1.486130.3.579.2.593 1955 Unknown [id number] 2.16.840.1.870917.3.579.2.196 1955 Unknown [id number] 2.16.840.1.897307.3.579.2.196 1955 Unknown [id number] 2.16.840.1.723588.3.579.2.196 1955 Unknown [id number] 2.16.840.1.041616.3.579.2.196 1955 Unknown [id number] 2.16.840.1.329001.3.579.2.1259 1955 Unknown [id number] 2.16.840.1.589505.3.579.2.1259 1955 Unknown [id number] 2.16.840.1.830829.3.579.2.1259 1955 Unknown [id number] 2.16.840.1.404450.3.579.2.1259 1955 Unknown [id number] 2.16.840.1.162065.3.579.2.1259 Medicare [id number] Unknown HCAP/HFA/FAP Active [id number] Unknown [id number] 2.16.840.1.450541.3.579.2.531 Social History Date Type Detail Facility Tobacco smoking stat us [facility] Unknown if ever smoked [facility] Start: 1955 Sex Assigned At Female F [facility] Start: 09-11-2020 End: 12-08-2022 Tobacco smoking status NHIS Never smoker [facility] Start: 09-11-2020 Tobacco use and exposure Never used [facility] Start: 09-11-2020 Alcohol intake Lifetime non-d my (finding) [facility] Start: 09-11-2020 History SDOH Alcohol Frequency 1 [facility] Sex Assigned At Not on file [facility] Sex Assigned At Sex Assigned At Bir th [facility] Other Goals Date Patient Goal Desired Activity /State Clinical Notes 08-30-2021 to 09-07-2023 Note Date & Type Note Facility 09-07-2023 Evaluation note Encounter Date Diagnosis Assessment Notes Sep, Hypomagnesemia (ICD-10 - E83.42) [facility] Other 10-23-2023 Evaluation note* Encounter Date Diagnosis Assessment Notes Treatment Notes Treatment Clinical Notes Aug, Nico lopez w cr kid I-IV (ICD-10 - I12.9) [facility] Other 10-12-2023 Evaluation note* Encounter Date Diagnosis [...] PPI induced GI losses. Continue oral Magnesium [facility] Other [id number] [facility] Chief Complaint: Patient here for 1 year follow up CAD and hypertension. She was recently discharged from [facility] for Covid-19. She says hydrochlorothiazide was [...] breath since then. 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 Her chest pain is noncardiac. She has no other cardiac complaints. Cardiology ROS: Review of Systems Cardiovascular: Positive for chest pain and dyspnea on exertion. Respiratory: Positive for wheezing. Musculoskeletal: Positive for arthritis, back pain, joint pain and myalgias. Neurological: Positive for light-headedness. All other systems reviewed and are negative. Past Medical History She has a past medical history of Cancer (CMS/[facility]) and Hypertension. Surgical History She [...] 325 mg by mouth., Disp: , Rfl: zqumnodmyoa-uztqadprf-rfglzzfq 100-62.5-25 mcg blister with device, , Disp: [...] CTAB, no increased eff (more content not included)...[facility]05-19-20[facility] NotePROCEDURE: XR HIP RT 2 3V W PELVIS HISTORY: Pain in right hip joint , chronic COMPARISON: XR L-spine 02/26/2019, XR left hip with pelvis 03/11/2017 FINDINGS: BONES:Complete loss of the right hip joint space with vjuc-cf-huql articulation, subchondral sclerosis and cysts, and large periarticular degenerative osteophytes. No fracture or dislocation. Left hip replacement. Mechanical fusion of L5-S1 and moderate dextroscoliosis of lumbar spine. SOFT TISSUES:No visible soft tissue swelling. EFFUSION:None visible. OTHER: Negative. IMPRESSION: 1. Marked degenerative joint disease of the right hip; progressed since prior study. 2. Stable surgical changes. 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 Continue oral Magnesium [facility]* Encounter Date Diagnosis Assessment Notes Treatment Notes Treatment Clinical Notes Nov, Hypokalemia (ICD-10 - E87.6) Nov, Hypomagnesemia (ICD-10 - E83.42) [facility] Other 10-04-2022 Evaluation note* Encounter Date Diagnosis [...] office does not accept her new insurance. [facility] Other 09-02-2022 Evaluation note* Encounter Date Diagnosis Assessment Notes Treatment Notes Treatment Clinical Notes Jul, History of colon cancer (ICD-10 - Z85.038) [facility] Other 01-12-2022 Evaluation note* Encounter Date Diagnosis [...] potassium wasting. I have prescribed oral potassium. [facility] Other 10-25-2021 Evaluation note* Encounter Date Diagnosis [...] [facility] Care At Home document [facility] Other Evaluation noteNo InformationNort [employer] Other Evaluation note* Diagnosis Onset Date Resolution Status History of colon cancer [facility] Work Phone: H[facility] general Narrative - Reported* Type Description Date [...] IN 08/2019 Hospitalization History HIP REVISION 03/2020 [facility] Other [facility]ismi[facility] general Narrative - Reported* Type Description Date [...] Hospitalization History COVID X 2 WEEKS 04/2023 [facility] Other Hospital Discharge instructions Additional Instructions DISCHARGE [...] if you have any problems. -Office number [phone] Work Phone: Advance Directives No Advanced Directives [...] or prosecute any alcohol or drug abuse patient.[facility] the event this information is protected by the Federal Confidentiality of Alcohol and Drug Abuse Patient Records regulations: The Federal rules restrict any use of the information to criminally investigate or prosecute any alcohol or drug abuse patient.[facility] the event this information is protected by the Federal Confidentiality of Alcohol and Drug Abuse Patient Records regulations: The Federal rules restrict any use of the information to criminally investigate or prosecute any alcohol or drug abuse patient.[facility] the event this information is protected by the Federal Confidentiality of Alcohol and Drug Abuse Patient Records regulations: The Federal rules restrict any use of the information to criminally investigate or prosecute any alcohol or drug abuse patient.[facility] INFORMATION SOURCE (unrecogn ized section and content) DATE CREATED AUTHOR 03/03/2022 [facility] DATE CREATED AUTHOR AUTHOR'S ORGANIZ ATION 04/17/2023 [facility] DATE CREATED AUTHOR AUTHOR'S ORGANIZ ATION 05/08/2023 [facility] DATE CREATED AUTHOR AUTHOR'S ORGANIZ ATION 06/07/2023 [place] DATE CREATED AUTHOR AUTHOR'S ORGANIZ ATION 12/24/2023 [facility] DATE CREATED AUTHOR AUTHOR'S ORGANIZ ATION 01/26/2024 [facility] EPIC REASON FOR VISIT (unrecogniz ed [...] BE BASED ON THE PRIMARY CLINICAL RECORDS. [facility]. provides no warranty or guarantee of the accuracy or completeness of information in this document.
[2024-02-03 17:10] LABS: Glucometer 209 mg/dL (74-106)
[2024-02-03] MEDS: INSULIN ASPART 300 UNIT/3 ML PEN SUBQ ×2 (17:32→22:53)
[2024-02-03 17:35] LABS: ABG PCO2 45.5 mmHg (35.0-45.0); pH ABG 7.421 (7.350-7.450)
[2024-02-03 17:36] LABS: Allen Test POSITIVE (POSITIVE); Base Excess ABG 5.2 mmol/L (-2.0-2.0); HCO3 ABG 29.6 mmol/L (22.0-26.0); Liters per Minute 2L; O2 Mode NC; Oxygen Saturation ABG 95.1 %; PO2 ABG 66.7 mmHg (80.0-100.0); Puncture Site L RAD
[2024-02-03 19:23] LABS: Glucometer 377 mg/dL (74-106)
[2024-02-03] MEDS: ENSURE HP 237 ML LIQUID PO (22:52)
[2024-02-03] MEDS: OMEPRAZOLE 20 MG CAPSULE.DR PO (22:55)
[2024-02-03] MEDS: TRAZODONE HCL 50 MG TABLET 100 MG PO (22:55)
[2024-02-03] MEDS: GUAIFENESIN 600 MG TAB.ER.12H PO (22:55)
[2024-02-03] MEDS: MAGNESIUM OXIDE 400 MG TABLET PO (22:55)
[2024-02-03] MEDS: PREGABALIN 75 MG CAPSULE PO (22:55)
[2024-02-03] MEDS: PRAMIPEXOLE 0.125 MG TABLET 0.25 MG PO (22:55)
[2024-02-03] MEDS: BUDESONIDE 0.5 MG/2 ML AMPULE NEB IH (23:37)
[2024-02-04] VITALS (11 sets, daily range): BP systolic 103–129; BP diastolic 56–67; PULSE 62–91; TEMP 36.4–36.7; O2SAT 87–94
[2024-02-04] MEDS: METHYLPREDNISOLONE SOD SUCC PF 125 MG/2 ML VIAL IVP ×2 (03:32→08:40)
[2024-02-04] MEDS: IPRATROPIUM/ALBUTEROL SULFATE 3 ML AMPUL.NEB IH ×4 (04:07→23:17)
[2024-02-04] MEDS: BACLOFEN 10 MG TABLET PO ×3 (05:10→22:32)
[2024-02-04 05:56] LABS: Basophils Percent Auto 0.2 % (0.2-2.0); Hematocrit 33.7 % (36.0-48.0); Hemoglobin 10.8 g/dL (12.0-16.0); Immature Granulocytes Abs Auto 0.11 10^3/uL (0.00-0.03); Immature Granulocytes Pct Auto 0.7 % (0.0-0.5); Lymphocytes Absolute Auto 0.7 10^3/uL (1.2-3.8); Lymphocytes Percent Auto 4.4 % (20.5-60.0); Mean Corpuscular Hemoglobin 30.7 pg (26.7-34.0); Mean Corpuscular Volume 95.7 fL (81.0-99.0); Mean Platelet Volume 9.4 fL (9.5-13.5); Monocytes Absolute Auto 0.4 10^3/uL (0.3-0.8); Monocytes Percent Auto 2.5 % (1.7-12.0); Neutrophils Absolute Auto 14.8 10^3/uL (1.4-6.5); Neutrophils Percent Auto 92.2 % (43.0-75.0); Platelet Count 226 10^3/uL (150-450); Red Blood Count 3.52 10^6/uL (4.20-5.40); Red Cell Distribution Width 13.9 % (11.0-15.0); White Blood Count 16.1 10^3/uL (4.0-11.0)
[2024-02-04 06:14] LABS: Alanine Aminotransferase 11 U/L (14-59); Albumin Globulin Ratio 0.6; Albumin Level 2.3 g/dL (3.4-5.0); Alkaline Phosphatase 105 U/L (46-116); Anion Gap 10.3; Aspartate Amino Transferase 12 U/L (15-37); BUN Creatinine Ratio 16.8; Bilirubin Total 0.3 mg/dL (0.2-1.0); Calcium 7.9 mg/dL (8.5-10.1); Carbon Dioxide 32.8 mmol/L (21.0-32.0); Chloride 102 mmol/L (98-107); Estimated GFR (African America >60 (>=60); Estimated GFR (Non-African Ame 51 (>=60); Glucose 176 mg/dL (74-106); Potassium 3.1 mmol/L (3.5-5.1); Sodium 142 mmol/L (136-145); Total Protein 6.3 g/dL (6.4-8.2)
[2024-02-04 07:33] LABS: Glucometer 204 mg/dL (74-106)
[2024-02-04] MEDS: INSULIN ASPART 300 UNIT/3 ML PEN SUBQ ×4 (08:39→22:31)
[2024-02-04] MEDS: MAGNESIUM OXIDE 400 MG TABLET PO (08:40)
[2024-02-04] MEDS: GUAIFENESIN 600 MG TAB.ER.12H PO ×2 (08:40→22:32)
[2024-02-04] MEDS: ENSURE HP 237 ML LIQUID PO ×2 (08:40→22:32)
[2024-02-04] MEDS: PAROXETINE HCL 20 MG TABLET 30 MG PO (08:40)
[2024-02-04] MEDS: OMEPRAZOLE 20 MG CAPSULE.DR PO ×2 (08:40→22:32)
[2024-02-04] MEDS: PREGABALIN 75 MG CAPSULE PO ×2 (08:40→22:32)
[2024-02-04] MEDS: SOLIFENACIN SUCCINATE 10 MG TABLET PO (08:40)
[2024-02-04] MEDS: POTASSIUM CHLORIDE 40 MEQ in 0.9 % SODIUM CHLORIDE 250 ML 67.5 MEQ IV (09:32)
[2024-02-04] MEDS: POTASSIUM CHLORIDE 10 MEQ ER TABLET 20 MEQ PO ×2 (09:32→22:32)
[2024-02-04] MEDS: BUDESONIDE 0.5 MG/2 ML AMPULE NEB IH ×2 (10:51→23:17)
[2024-02-04] MEDS: CEFTRIAXONE 1,000 MG in 0.9 % SODIUM CHLORIDE 50 ML 100 MG IV (11:50)
[2024-02-04 11:58] LABS: Glucometer 186 mg/dL (74-106)
--- NOTE | 2024-02-04 12:16 | P.PN_ITS ---
Progress Note: Subjective Subjective Interval history: Patient states breathing is somewhat better. Still with dyspnea with activity. Exam Constitutional Vital Signs, click to edit/add: Last Vital Signs Temp 97.6 F 02/04/24 08:49 Pulse 78 02/04/24 10:52 Resp 18 02/04/24 10:52 BP 110/56 02/04/24 08:49 Pulse Ox 90 L 02/04/24 10:52 O2 Del Method Nasal Cannula 02/04/24 10:52 O2 Flow Rate 2 02/04/24 10:52 Documenting provider has reviewed patient's vital signs: yes Common normals: apparent distress (Mild conversational dyspnea) HENMT Common normals: normocephalic Chest Common normals: inspection of chest normal Respiratory Common normals: abnormal respiratory effort (Mild conversational dyspnea may be slightly improved) Effort & inspection: not able to speak in complete sentences Auscultation: rhonchi (Better air exchange), wheezes (Due for breathing treatment) and egophony right upper Cardio Common normals: regular rate, regular rhythm and no murmurs GI Common normals: Normal to inspection, nondistended, normoactive bowel sounds present Extremity Common normals: abnormal to inspection (2+ edema, worse for her) Progress Note: Objective Labs Labs: Short CBC 02/04/24 Range/Units 04:35 WBC 16.1 H (4.0-11.0) 10^3/uL Hgb 10.8 L (12.0-16.0) g/dL Hct 33.7 L (36.0-48.0) % Plt Count 226 (150-450) 10^3/uL BMP 02/04/24 04:35 Sodium 142 Potassium 3.1 L Chloride 102 Carbon Dioxide 32.8 H BUN 18.0 Creatinine 1.07 H Glucose 176 H Calcium 7.9 L Liver Function 02/04/24 Range/Units 04:35 Total Bilirubin 0.3 (0.2-1.0) mg/dL AST 12 L (15-37) U/L ALT 11 L (14-59) U/L Alkaline Phosphatase 105 (46-116) U/L Albumin 2.3 L (3.4-5.0) g/dL Progress Note: A&P Assessment and Plan (1) Hypomagnesemia: (2) Acute hypokalemia: (3) Pneumonia: Qualifiers: Laterality: unspecified laterality Lung location: unspecified part of lung Pneumonia type: due to unspecified organism Qualified Code(s): J18.9 - Pneumonia, unspecified organism Plan Admission Dx: Acute hypoxia with O2 saturation of 88% on 2 L, peripheral edema, leukocytosis, hypokalemia, hypomagnesemia secondary to acute exacerbation of COPD due to possible right upper lobe pneumonia-on exam she does have egophony right upper lobe. IV antibiotics, aerosols, steroids., Sputum culture-patient improving so maintain current treatment plan Peripheral edema-increased from baseline-1 dose of Lasix, - continue to monitor is improved today Chronic kidney disease 2-monitor daily-improved Ctcellfycri-cwrygeruyk-sskspidi supplementation Hypomagnesemia-supplement Significant weakness-will have physical therapy evaluate patient, possible rehab candidate. Leukocytosis secondary to above-monitor daily-improved Iron deficiency anemia-monitor daily Hyperglycemia-this is likely to progress as she has some previous visits will place patient on insulin sliding scale. GERD-continue with home medications Chronic pain syndrome-continue with home medications Inpatient criteria: With significant hypoxia for somebody with his baseline supplemental oxygen of 2 L, significant leukocytosis representing possible sepsis, cultures are pending, medically necessary treatment will definitely span 2 midnights she is likely a 3 to 4-day hospital stay
[2024-02-04] MEDS: AZITHROMYCIN 500 MG in 0.9 % SODIUM CHLORIDE 250 ML 250 MG IV (12:30)
[2024-02-04] MEDS: METHYLPREDNISOLONE SOD SUCC PF 125 MG/2 ML VIAL 60 MG IVP ×2 (14:03→22:31)
[2024-02-04 16:38] LABS: Glucometer 193 mg/dL (74-106)
[2024-02-04 19:36] LABS: Glucometer 233 mg/dL (74-106)
[2024-02-04] MEDS: PRAMIPEXOLE 0.125 MG TABLET 0.25 MG PO (19:44)
[2024-02-04] MEDS: ACETAMINOPHEN 500 MG TABLET 1000 MG PO (19:44)
[2024-02-04] MEDS: TRAZODONE HCL 50 MG TABLET 100 MG PO (22:32)
[2024-02-04] MEDS: MONTELUKAST SODIUM 10 MG TABLET PO (22:32)
[2024-02-05] VITALS (15 sets, daily range): BP systolic 107–168; BP diastolic 60–90; PULSE 77–88; TEMP 36.3–36.7; O2SAT 85–94
[2024-02-05] MEDS: METHYLPREDNISOLONE SOD SUCC PF 125 MG/2 ML VIAL 60 MG IVP ×4 (03:03→22:20)
[2024-02-05] MEDS: IPRATROPIUM/ALBUTEROL SULFATE 3 ML AMPUL.NEB IH ×4 (04:33→22:45)
[2024-02-05] MEDS: BACLOFEN 10 MG TABLET PO ×3 (05:38→22:20)
[2024-02-05 05:49] LABS: Basophils Percent Auto 0.1 % (0.2-2.0); Hematocrit 33.3 % (36.0-48.0); Hemoglobin 10.7 g/dL (12.0-16.0); Immature Granulocytes Abs Auto 0.12 10^3/uL (0.00-0.03); Lymphocytes Absolute Auto 0.5 10^3/uL (1.2-3.8); Lymphocytes Percent Auto 3.8 % (20.5-60.0); Mean Corpuscular HGB Conc 32.1 g/dL (29.9-35.2); Mean Corpuscular Hemoglobin 30.7 pg (26.7-34.0); Mean Corpuscular Volume 95.4 fL (81.0-99.0); Mean Platelet Volume 9.7 fL (9.5-13.5); Monocytes Absolute Auto 0.3 10^3/uL (0.3-0.8); Monocytes Percent Auto 2.8 % (1.7-12.0); Neutrophils Percent Auto 92.3 % (43.0-75.0); Platelet Count 253 10^3/uL (150-450); Red Blood Count 3.49 10^6/uL (4.20-5.40); Red Cell Distribution Width 13.8 % (11.0-15.0); White Blood Count 11.9 10^3/uL (4.0-11.0)
[2024-02-05 06:06] LABS: Alanine Aminotransferase 13 U/L (14-59); Albumin Globulin Ratio 0.5; Albumin Level 2.2 g/dL (3.4-5.0); Alkaline Phosphatase 96 U/L (46-116); Anion Gap 12.6; Aspartate Amino Transferase 13 U/L (15-37); BUN Creatinine Ratio 25.2; Bilirubin Total 0.2 mg/dL (0.2-1.0); Calcium 8.3 mg/dL (8.5-10.1); Carbon Dioxide 29.5 mmol/L (21.0-32.0); Chloride 102 mmol/L (98-107); Estimated GFR (African America >60 (>=60); Estimated GFR (Non-African Ame 51 (>=60); Globulin 4.2 g/dL; Glucose 207 mg/dL (74-106); Potassium 4.1 mmol/L (3.5-5.1); Sodium 140 mmol/L (136-145); Total Protein 6.4 g/dL (6.4-8.2)
[2024-02-05 07:36] LABS: Glucometer 225 mg/dL (74-106)
[2024-02-05] MEDS: INSULIN ASPART 300 UNIT/3 ML PEN SUBQ ×4 (08:19→22:19)
--- NOTE | 2024-02-05 09:11 | P.PN_ITS ---
Progress Note: Subjective Subjective Interval history: Patient states breathing is somewhat better. Still with dyspnea with activity. Exam Constitutional Vital Signs, click to edit/add: Last Vital Signs Temp 97.9 F 02/05/24 07:26 Pulse 85 02/05/24 07:26 Resp 18 02/05/24 08:00 BP 125/72 02/05/24 07:26 Pulse Ox 88 L 02/05/24 07:26 O2 Del Method Nasal Cannula 02/05/24 07:26 O2 Flow Rate 3 02/05/24 07:26 Progress Note: Objective Labs Labs: Short CBC 02/05/24 Range/Units 04:49 WBC 11.9 H (4.0-11.0) 10^3/uL Hgb 10.7 L (12.0-16.0) g/dL Hct 33.3 L (36.0-48.0) % Plt Count 253 (150-450) 10^3/uL BMP 02/05/24 04:49 Sodium 140 Potassium 4.1 Chloride 102 Carbon Dioxide 29.5 BUN 27.0 H Creatinine 1.07 H Glucose 207 H Calcium 8.3 L Liver Function 02/05/24 Range/Units 04:49 Total Bilirubin 0.2 (0.2-1.0) mg/dL AST 13 L (15-37) U/L ALT 13 L (14-59) U/L Alkaline Phosphatase 96 (46-116) U/L Albumin 2.2 L (3.4-5.0) g/dL Progress Note: A&P Assessment and Plan (1) Hypomagnesemia: (2) Acute hypokalemia: (3) Pneumonia: Qualifiers: Laterality: unspecified laterality Lung location: unspecified part of lung Pneumonia type: due to unspecified organism Qualified Code(s): J18.9 - Pneumonia, unspecified organism
--- NOTE | 2024-02-05 09:11 | P.PN_ITS ---
Progress Note: Subjective Subjective Interval history: With significant dyspnea, unable to titrate oxygen Exam Constitutional Vital Signs, click to edit/add: Last Vital Signs Temp 97.9 F 02/05/24 07:26 Pulse 85 02/05/24 07:26 Resp 18 02/05/24 08:00 BP 125/72 02/05/24 07:26 Pulse Ox 88 L 02/05/24 07:26 O2 Del Method Nasal Cannula 02/05/24 07:26 O2 Flow Rate 3 02/05/24 07:26 Documenting provider has reviewed patient's vital signs: yes Common normals: apparent distress (Mild conversational dyspnea) HENMT Common normals: normocephalic Chest Common normals: inspection of chest normal Respiratory Common normals: abnormal respiratory effort (Mild conversational dyspnea may be slightly improved) Effort & inspection: not able to speak in complete sentences Auscultation: rhonchi (Better air exchange), wheezes (Due for breathing treatment) and egophony right upper Cardio Common normals: regular rate, regular rhythm and no murmurs GI Common normals: Normal to inspection, nondistended, normoactive bowel sounds present Extremity Common normals: abnormal to inspection (2+ edema, worse for her) Progress Note: Objective Labs Labs: Short CBC 02/05/24 Range/Units 04:49 WBC 11.9 H (4.0-11.0) 10^3/uL Hgb 10.7 L (12.0-16.0) g/dL Hct 33.3 L (36.0-48.0) % Plt Count 253 (150-450) 10^3/uL BMP 02/05/24 04:49 Sodium 140 Potassium 4.1 Chloride 102 Carbon Dioxide 29.5 BUN 27.0 H Creatinine 1.07 H Glucose 207 H Calcium 8.3 L Liver Function 02/05/24 Range/Units 04:49 Total Bilirubin 0.2 (0.2-1.0) mg/dL AST 13 L (15-37) U/L ALT 13 L (14-59) U/L Alkaline Phosphatase 96 (46-116) U/L Albumin 2.2 L (3.4-5.0) g/dL Progress Note: A&P Assessment and Plan (1) Hypomagnesemia: (2) Acute hypokalemia: (3) Pneumonia: Qualifiers: Laterality: unspecified laterality Lung location: unspecified part of lung Pneumonia type: due to unspecified organism Qualified Code(s): J18.9 - Pneumonia, unspecified organism Plan Admission Dx: Acute hypoxia with O2 saturation of 88% on 2 L, peripheral edema, leukocytosis, hypokalemia, hypomagnesemia secondary to acute exacerbation of COPD due to possible right upper lobe pneumonia-on exam she does have egophony right upper lobe. Trend sputum culture later today, continue with current treatment plan although unable to wean supplemental oxygen, will consult to pulmonology who is known patient to him Peripheral edema-increased from baseline-1 dose of Lasix, -somewhat improved Chronic kidney disease 2-monitor daily-stable Wmsedupscux-gbmarwghlg-uqbxhpne supplementation Hypomagnesemia-supplement Significant weakness-will have physical therapy evaluate patient, possible rehab candidate. Evaluation later today Leukocytosis secondary to above-monitor daily-improved Iron deficiency anemia-monitor daily Hyperglycemia-this is likely to progress as she has some previous visits will place patient on insulin sliding scale. GERD-continue with home medications Chronic pain syndrome-continue with home medications Inpatient criteria: With significant hypoxia for somebody with his baseline supplemental oxygen of 2 L, significant leukocytosis representing possible sepsis, cultures are pending, medically necessary treatment will definitely span 2 midnights she is likely a 3 to 4-day hospital stay due to the lack of improvement
--- NOTE | 2024-02-05 09:19 | CM.NOTE ---
Rounds made with Dr. Zepeda, pt still c/o SOB. Pt does wear home oxygen @2L NC and is on 3L NC now. Dr. Zepeda will consult Dr. Lopes for further recommendations.
[2024-02-05] MEDS: POTASSIUM CHLORIDE 10 MEQ ER TABLET 20 MEQ PO ×2 (10:19→22:20)
[2024-02-05] MEDS: OMEPRAZOLE 20 MG CAPSULE.DR PO ×2 (10:19→22:20)
[2024-02-05] MEDS: PREGABALIN 75 MG CAPSULE PO ×2 (10:20→22:20)
[2024-02-05] MEDS: PAROXETINE HCL 20 MG TABLET 30 MG PO (10:20)
[2024-02-05] MEDS: SOLIFENACIN SUCCINATE 10 MG TABLET PO (10:21)
[2024-02-05] MEDS: MAGNESIUM OXIDE 400 MG TABLET PO (10:21)
[2024-02-05] MEDS: GUAIFENESIN 600 MG TAB.ER.12H PO ×2 (10:21→22:20)
[2024-02-05] MEDS: ENSURE HP 237 ML LIQUID PO ×2 (10:22→22:19)
[2024-02-05] MEDS: BUDESONIDE 0.5 MG/2 ML AMPULE NEB IH ×2 (10:47→22:44)
[2024-02-05] MEDS: CEFTRIAXONE 1,000 MG in 0.9 % SODIUM CHLORIDE 50 ML 100 MG IV (11:13)
[2024-02-05 11:33] LABS: Glucometer 224 mg/dL (74-106)
[2024-02-05] MEDS: AZITHROMYCIN 500 MG in 0.9 % SODIUM CHLORIDE 250 ML 250 MG IV (11:58)
--- NOTE | 2024-02-05 13:33 | SWNOTE1 ---
SW met with pt to discuss dc needs. Pt lives at home with her son. Pt uses a rollator at home to get around. Pt wears home oxygen 2 liters thru [facility]. At this time pt does not have any HH coming in, but voices she would like home health therapy to come in. She has had in past, but can't remember company. She would like to use same company. SW to look back at previous stay.
--- NOTE | 2024-02-05 13:36 | SWNOTE1 ---
Pt had [facility] in past, SW to see if they take pt's insurance.
--- NOTE | 2024-02-05 13:49 | SWNOTE1 ---
Referral sent to [facility]. Referral included face sheet, ED note, H&P, provider notes, and PT/OT notes.
--- NOTE | 2024-02-05 15:06 | PC.NURSE ---
1445 Mini cath done for UA. No complications and patient tolerated well. UA sent down to lab.
[2024-02-05 15:10] LABS: Bilirubin Urine NEGATIVE (NEGATIVE); Blood Urine NEGATIVE (NEGATIVE); Clarity Urine CLEAR (CLEAR); Color Urine LT. YELLOW (YELLOW); Glucose Urine UA NEGATIVE (NEGATIVE); Ketones Urine NEGATIVE (NEGATIVE); Leukocyte Esterase Urine NEGATIVE (NEGATIVE); Nitrite Urine NEGATIVE (NEGATIVE); Protein Urine NEGATIVE (NEG/TRACE); Urobilinogen Urine 0.2 EU/dL (0.2-1.0); pH Urine 5.5 (5.0-9.0)
[2024-02-05 15:11] LABS: Urine Microscopic Indicated NO
[2024-02-05 16:09] LABS: Glucometer 168 mg/dL (74-106)
[2024-02-05 20:58] LABS: Glucometer 300 mg/dL (74-106)
[2024-02-05] MEDS: MONTELUKAST SODIUM 10 MG TABLET PO (22:20)
[2024-02-05] MEDS: PRAMIPEXOLE 0.125 MG TABLET 0.25 MG PO (22:20)
[2024-02-05] MEDS: TRAZODONE HCL 50 MG TABLET 100 MG PO (22:20)
[2024-02-06] VITALS (14 sets, daily range): BP systolic 146–159; BP diastolic 62–79; PULSE 72–83; TEMP 36.4–36.9; O2SAT 90–93
[2024-02-06] MEDS: METHYLPREDNISOLONE SOD SUCC PF 125 MG/2 ML VIAL 60 MG IVP (03:40)
[2024-02-06] MEDS: IPRATROPIUM/ALBUTEROL SULFATE 3 ML AMPUL.NEB IH ×4 (04:36→22:14)
[2024-02-06 04:59] LABS: Hematocrit 33.9 % (36.0-48.0); Hemoglobin 10.6 g/dL (12.0-16.0); Mean Corpuscular HGB Conc 31.3 g/dL (29.9-35.2); Mean Platelet Volume 9.5 fL (9.5-13.5); Platelet Count 259 10^3/uL (150-450); Red Blood Count 3.53 10^6/uL (4.20-5.40); Red Cell Distribution Width 13.8 % (11.0-15.0); White Blood Count 6.5 10^3/uL (4.0-11.0)
[2024-02-06 05:21] LABS: Alanine Aminotransferase 13 U/L (14-59); Albumin Globulin Ratio 0.6; Albumin Level 2.3 g/dL (3.4-5.0); Alkaline Phosphatase 85 U/L (46-116); Anion Gap 9.7; Aspartate Amino Transferase 10 U/L (15-37); BUN Creatinine Ratio 29.7; Bilirubin Total 0.2 mg/dL (0.2-1.0); Calcium 8.4 mg/dL (8.5-10.1); Carbon Dioxide 31.7 mmol/L (21.0-32.0); Chloride 104 mmol/L (98-107); Estimated GFR (African America >60 (>=60); Estimated GFR (Non-African Ame 55 (>=60); Globulin 3.9 g/dL; Glucose 220 mg/dL (74-106); Potassium 4.4 mmol/L (3.5-5.1); Sodium 141 mmol/L (136-145); Total Protein 6.2 g/dL (6.4-8.2)
[2024-02-06 05:29] LABS: Anisocytosis 2+; Atypical Lymphocytes Abs Man 0.13; Hypochromasia 1+; Lymphocytes Absolute Manual 0.13 10^3/uL (1.20-3.80); Monocytes Absolute Manual 0.32 10^3/uL (0.30-0.80); Segmented Neut Absolute Manual 5.91 10^3/uL (1.4-6.5); Stomatocytes 1+
[2024-02-06 05:30] LABS: Toxic Granulation 4+
[2024-02-06] MEDS: BACLOFEN 10 MG TABLET PO ×3 (05:55→21:57)
--- NOTE | 2024-02-06 07:35 | CT_ITS ---
[address] [address] Patient Name: JHONATAN MONTOYA MRN: [id number] date: 1955 Sex: F Assigned Patient Location: [place] Current Patient Location: [place] Accession/Order Number: [id number] Exam Date: 02/06/2024 08:03 Report Date: 02/06/2024 08:40 At the request of: BO MCCLAIN Procedure: CT chest wo con EXAMINATION: CT chest wo con HISTORY: Pneumonia, hypoxic respiratory failure COMPARISON: CT chest 11/25/2023 TECHNIQUE: Multi-planar CT images were obtained without and/or with IV contrast as indicated by examination type. Axial, Coronal, and Sagittal images. Dose reduction techniques were achieved by using automated exposure control and/or adjustment of mA and/or kV according to patient size and/or use of iterative reconstruction technique. FINDINGS: LUNGS: Small amount of residual infiltrates versus atelectasis within posterior medial lung bases. A few faint groundglass opacities scattered within right upper lobe region of prior infiltrates. Several sub-5 mm nodules scattered within the lungs; some calcified some noncalcified. PLEURA: No mass, effusion, or pneumothorax. VASCULATURE: No abnormality. RENAN: No mass or adenopathy. MEDIASTINUM: No mass or adenopathy. CARDIAC: No enlargement, pericardial thickening, or significant calcification. AORTA: No aneurysm or dissection. CHEST WALL: No mass or axillary adenopathy. BONES: No bone lesion or acute fracture. Old healed rib fractures. LIMITED ABDOMEN: No suspicious findings Limited images of the upper abdomen. OTHER: Negative. CT/CT chest wo con IMPRESSION: 1. Trace amount of bibasilar infiltrates versus atelectasis and some residual groundglass opacities possibly representing infectious infiltrates. Significant improvement compared to prior study. Electronically authenticated by: STEPH GRANADOS Date: 02/06/2024 08:40
--- NOTE | 2024-02-06 07:35 | PM.PLCN ---
History of Present Illness History of Present Illness Consult date: 02/06/24 Chief complaint: GENERAL WEAKNESS Narrative: 68yo female, well known to me. Patient has had several episodes of pneumonia over the past 12 months, most recently on chest CTA 11/25/2023. Previously checked immunoglobulins on 06/23/2022 which were all within their normal ranges. She was feeling ill ~02/02/2024, complaining of weakness beyond her norm, BLE edema, and chest congestion. WBC was elevated, but CXR suggested some improvement in previously noted LLL infiltrate. She states she is feeling somewhat better, but has not been able to be weaned off O2 - she is currently @ 3L/min. She does have home O2 she uses PRN. Had PSG 01/02/2024 which R/O GURWINDER as AHI was only 2.5 (Medicare 4% criteria). She did spend 19.2% of total sleep time @ 88% or below. Currently, main complain is ongoing chest congestion and difficulty clearing secretions. She is using the PEP, but that is only mobilizing the secretions so far. Review of Systems ROS Status of ROS 10 or more systems reviewed and unremarkable except as noted in history and below (As above. Chest congestion/cough, weak.) [facility] Medical History CAD (coronary artery disease) ?I25.10 - Atherosclerotic heart disease of [place] coronary artery without angina pectoris (ICD-10) Chronic heart failure with preserved ejection fraction (HFpEF) ?I50.32 - Chronic diastolic (congestive) heart failure (ICD-10) Hypertension ?I10 - Essential (primary) hypertension (ICD-10) Myofascial pain ?M79.18 - Myalgia, other site (ICD-10) Greater trochanteric bursitis ?M70.60 - Trochanteric bursitis, unspecified hip (ICD-10) Osteoarthritis of right hip ?M16.11 - Unilateral primary osteoarthritis, right hip (ICD-10) Lumbar spondylosis ?M47.816 - Spondylosis without myelopathy or radiculopathy, lumbar region (ICD-10) Lumbar postlaminectomy syndrome ?M96.1 - Postlaminectomy syndrome, not elsewhere classified (ICD-10) Lumbar stenosis with neurogenic claudication ?M48.062 - Spinal stenosis, lumbar region with neurogenic claudication (ICD-10) Depression ?F32.A - Depression, unspecified (ICD-10) Chronic low back pain ?M54.50 - Low back pain, unspecified (ICD-10) ?G89.29 - Other chronic pain (ICD-10) Hypoxia ?R09.02 - Hypoxemia (ICD-10) Heart murmur ?R01.1 - Cardiac murmur, unspecified (ICD-10) Chronic obstructive pulmonary disease ?J44.9 - Chronic obstructive pulmonary disease, unspecified (ICD-10) Asthma ?J45.909 - Unspecified asthma, uncomplicated (ICD-10) Surgical History Status post hip surgery ?Z98.890 - Other specified postprocedural states (ICD-10) H/O foot surgery ?Z98.890 - Other specified postprocedural states (ICD-10) H/O tubal ligation ?Z98.51 - Tubal ligation status (ICD-10) History of lumbar fusion ?Z98.1 - Arthrodesis status (ICD-10) Social History Smoking status: Never smoker Highest level of school completed/degree received: Associate degree: occupational, technical, vocational program Do you think of yourself as: straight/heterosexual Gender Identity: female Meds Home Medications and Allergies Home Medications ?Medication ?Instructions ?Recorded ?Confirmed ?Type fluticasone fur. 200 mcg-umeclid 1 inh inhalation Q24H COPD 04/10/23 02/03/24 History 62.5 mcg-vilant 25 mcg inhalat.powder (Trelegy Ellipta) magnesium oxide 400 mg (241.3 mg 400 mg PO DAILY 04/10/23 02/03/24 History magnesium) tablet omeprazole 20 mg capsule,delayed 20 mg PO BID 04/10/23 02/03/24 History release losartan 50 mg tablet (Cozaar) 50 mg PO BID 08/21/23 02/03/24 History montelukast 10 mg tablet 10 mg PO DAILY 09/14/23 02/03/24 History pramipexole 0.25 mg tablet 0.25 mg PO QPM 09/14/23 02/03/24 History (Mirapex) paroxetine HCl 30 mg tablet 30 mg PO QDAY 11/25/23 02/03/24 History pregabalin 75 mg capsule 75 mg PO BID 11/25/23 02/03/24 History solifenacin 10 mg tablet 10 mg PO QDAY 11/25/23 02/03/24 History trazodone 100 mg tablet 100 mg PO .qhs 11/25/23 02/03/24 History guaifenesin 600 mg tablet, 600 mg PO BID 10 days #20 tabs 12/02/23 02/03/24 Rx extended release 12 hr (Mucus Relief ER) tramadol 50 mg tablet 50 mg PO BID PRN pain 01/30/24 02/03/24 History baclofen 10 mg tablet 10 mg PO Q8H 02/03/24 02/03/24 History oxycodone 5 mg tablet 5 mg PO Q6H PRN pain 02/03/24 02/03/24 History Allergies Allergy/AdvReac Type Severity Reaction Status Date / Time No Known Drug Allergies Allergy Verified 12/18/23 07:25 Exam Constitutional Vital Signs, click to edit/add: Last Vital Signs Temp 97.8 F 02/06/24 03:46 Pulse 77 02/06/24 04:46 Resp 20 02/06/24 04:46 BP 149/79 H 02/06/24 03:46 Pulse Ox 93 L 02/06/24 04:46 O2 Del Method Nasal Cannula 02/06/24 04:46 O2 Flow Rate 3 02/06/24 04:46 Documenting provider has reviewed patient's vital signs: yes Other: Rhonchorous cough HENMT Other: Wearing nasal cannula Mucous membranes dry Mallampati III No oral candidiasis Chest Other: Normal appearance Respiratory Other: Diffuse rhonchi & crackles - much worse than auscultated at last office visit 12/12/2023. Breathing does not appear labored. Cardio Other: RRR GI Other: Mildly increased central adiposity Extremity Other: No significant BLE edema Neuro Other: No focal deficits. Psych Other: A&O x3. Pleasant affect. Results Laboratory Findings ABG, PT/INR, D-dimer: ABG ABG pH 7.421 (7.350-7.450) 02/03/24 17:30 ABG pCO2 45.5 mmHg (35.0-45.0) H 02/03/24 17:30 ABG pO2 66.7 mmHg (80.0-100.0) L 02/03/24 17:30 ABG O2 Saturation 95.1 % 02/03/24 17:30 PT/INR, D-dimer PT 11.9 sec (9.0-11.6) H 02/03/24 09:15 INR 1.13 02/03/24 09:15 Abnormal lab findings: Abnormal Labs 02/03/24 02/03/24 02/03/24 09:15 16:10 17:00 WBC 19.2 H RBC 3.70 L Hgb 11.4 L Hct 35.8 L MPV 8.9 L Neut % (Auto) 82.5 H Lymph % (Auto) 9.9 L Eos % (Auto) 0.2 L Baso % (Auto) Neut # (Auto) 15.8 H Lymph # (Auto) Amelia # (Auto) 1.2 H Abs Immat Gran (auto) 0.13 H Lymphocytes % (Manual) Eosinophils % (Manual) Basophils % (Manual) Imm/Tot Granulo (auto) 0.7 H Lymphocytes # (Manual) PT 11.9 H ABG pCO2 ABG pO2 ABG HCO3 ABG Base Excess Potassium 3.4 L Carbon Dioxide BUN Creatinine 1.21 H Est GFR ( Amer) 54 L Est GFR (Non-Af Amer) 44 L Glucose 127 H Calcium 8.0 L Magnesium 1.6 L 2.5 H AST 13 L ALT Total Protein 6.3 L Albumin 2.3 L POC Glucose 209 H 02/03/24 02/03/24 02/04/24 17:30 19:22 04:35 WBC 16.1 H RBC 3.52 L Hgb 10.8 L Hct 33.7 L MPV 9.4 L Neut % (Auto) 92.2 H Lymph % (Auto) 4.4 L Eos % (Auto) 0.0 L Baso % (Auto) Neut # (Auto) 14.8 H Lymph # (Auto) 0.7 L Amelia # (Auto) Abs Immat Gran (auto) 0.11 H Lymphocytes % (Manual) Eosinophils % (Manual) Basophils % (Manual) Imm/Tot Granulo (auto) 0.7 H Lymphocytes # (Manual) PT ABG pCO2 45.5 H ABG pO2 66.7 L ABG HCO3 29.6 H ABG Base Excess 5.2 H Potassium 3.1 L Carbon Dioxide 32.8 H BUN Creatinine 1.07 H Est GFR ( Amer) Est GFR (Non-Af Amer) 51 L Glucose 176 H Calcium 7.9 L Magnesium AST 12 L ALT 11 L Total Protein 6.3 L Albumin 2.3 L POC Glucose 377 H 02/04/24 02/04/24 02/04/24 07:31 11:54 16:27 WBC RBC Hgb Hct MPV Neut % (Auto) Lymph % (Auto) Eos % (Auto) Baso % (Auto) Neut # (Auto) Lymph # (Auto) Amelia # (Auto) Abs Immat Gran (auto) Lymphocytes % (Manual) Eosinophils % (Manual) Basophils % (Manual) Imm/Tot Granulo (auto) Lymphocytes # (Manual) PT ABG pCO2 ABG pO2 ABG HCO3 ABG Base Excess Potassium Carbon Dioxide BUN Creatinine Est GFR ( Amer) Est GFR (Non-Af Amer) Glucose Calcium Magnesium AST ALT Total Protein Albumin POC Glucose 204 H 186 H 193 H 02/04/24 02/05/24 02/05/24 19:35 04:49 07:33 WBC 11.9 H RBC 3.49 L Hgb 10.7 L Hct 33.3 L MPV Neut % (Auto) 92.3 H Lymph % (Auto) 3.8 L Eos % (Auto) 0.0 L Baso % (Auto) 0.1 L Neut # (Auto) 11.0 H Lymph # (Auto) 0.5 L Amelia # (Auto) Abs Immat Gran (auto) 0.12 H Lymphocytes % (Manual) Eosinophils % (Manual) Basophils % (Manual) Imm/Tot Granulo (auto) 1.0 H Lymphocytes # (Manual) PT ABG pCO2 ABG pO2 ABG HCO3 ABG Base Excess Potassium Carbon Dioxide BUN 27.0 H Creatinine 1.07 H Est GFR ( Amer) Est GFR (Non-Af Amer) 51 L Glucose 207 H Calcium 8.3 L Magnesium AST 13 L ALT 13 L Total Protein Albumin 2.2 L POC Glucose 233 H 225 H 02/05/24 02/05/24 02/05/24 11:30 16:08 20:51 WBC RBC Hgb Hct MPV Neut % (Auto) Lymph % (Auto) Eos % (Auto) Baso % (Auto) Neut # (Auto) Lymph # (Auto) Amelia # (Auto) Abs Immat Gran (auto) Lymphocytes % (Manual) Eosinophils % (Manual) Basophils % (Manual) Imm/Tot Granulo (auto) Lymphocytes # (Manual) PT ABG pCO2 ABG pO2 ABG HCO3 ABG Base Excess Potassium Carbon Dioxide BUN Creatinine Est GFR ( Amer) Est GFR (Non-Af Amer) Glucose Calcium Magnesium AST ALT Total Protein Albumin POC Glucose 224 H 168 H 300 H 02/06/24 04:31 WBC RBC 3.53 L Hgb 10.6 L Hct 33.9 L MPV Neut % (Auto) Lymph % (Auto) Eos % (Auto) Baso % (Auto) Neut # (Auto) Lymph # (Auto) Amelia # (Auto) Abs Immat Gran (auto) Lymphocytes % (Manual) 2.0 L Eosinophils % (Manual) 0.0 L Basophils % (Manual) 0.0 L Imm/Tot Granulo (auto) Lymphocytes # (Manual) 0.13 L PT ABG pCO2 ABG pO2 ABG HCO3 ABG Base Excess Potassium Carbon Dioxide BUN 30.0 H Creatinine Est GFR ( Amer) Est GFR (Non-Af Amer) 55 L Glucose 220 H Calcium 8.4 L Magnesium AST 10 L ALT 13 L Total Protein 6.2 L Albumin 2.3 L POC Glucose Assessment and Plan Assessment and Plan (1) Pneumonia: Assessment and Plan: 1. Healthcare-acquired pneumonia. Working diagnosis is HCAP as it has been <90 days since she was last admitted to the hospital. Previously had LLL infiltrate on CTA in November - CT was due in mid-February; as she still is requiring O2, will check chest CT w/o contrast to evaluate resolution of prior LLL infiltrate, as well as to check for any mucus plugging. Continue with pulmonary toilet - add hypertonic saline nebs, continue PEP use. 2. Xpohx-fp-eoaimfy hypoxic respiratory failure. She is on home O2 PRN, now requiring 3L/min. Acute hypoxia secondary to pneumonia. Anticipate patient will require ATC O2 @ discharge and then wean from then. 3. 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 Impeding clearance of secretions. Pulmonary toilet as above. 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 Feels worse than baseline, but not as severe as last year. 5. Excessive daytime hypersomnolence. GURWINDER has been R/O on PSG 01/02/2024. She does have very significant snoring - has upper airway resistance syndrome. 6. Morbid obesity with BMI 41.4. Weight loss advised. Contributing to restrictive pulmonary physiology. Qualifiers: Laterality: unspecified laterality Lung location: unspecified part of lung Pneumonia type: due to unspecified organism Qualified Code(s): J18.9 - Pneumonia, unspecified organism
[2024-02-06 07:37] LABS: Glucometer 234 mg/dL (74-106)
[2024-02-06] MEDS: POTASSIUM CHLORIDE 10 MEQ ER TABLET 20 MEQ PO ×2 (08:45→20:25)
[2024-02-06] MEDS: PREGABALIN 75 MG CAPSULE PO ×2 (08:45→20:26)
[2024-02-06] MEDS: OMEPRAZOLE 20 MG CAPSULE.DR PO ×2 (08:45→20:26)
[2024-02-06] MEDS: SOLIFENACIN SUCCINATE 10 MG TABLET PO (08:45)
[2024-02-06] MEDS: GUAIFENESIN 600 MG TAB.ER.12H PO ×2 (08:45→20:26)
[2024-02-06] MEDS: MAGNESIUM OXIDE 400 MG TABLET PO (08:45)
[2024-02-06] MEDS: LOSARTAN POTASSIUM 50 MG TABLET PO ×2 (08:45→20:26)
[2024-02-06] MEDS: PAROXETINE HCL 20 MG TABLET 30 MG PO (08:45)
[2024-02-06] MEDS: ACETAMINOPHEN 500 MG TABLET 1000 MG PO (08:45)
[2024-02-06] MEDS: INSULIN ASPART 300 UNIT/3 ML PEN SUBQ ×4 (08:46→21:58)
[2024-02-06] MEDS: 0.9 % SODIUM CHLORIDE 250 ML 10 ML IV (10:48)
[2024-02-06] MEDS: CEFTRIAXONE 1,000 MG in 0.9 % SODIUM CHLORIDE 50 ML 100 MG IV (10:48)
[2024-02-06] MEDS: METHYLPREDNISOLONE SOD SUCC PF 125 MG/2 ML VIAL 40 MG IVP ×3 (10:48→22:11)
--- NOTE | 2024-02-06 10:56 | P.PN_ITS ---
Progress Note: Subjective Subjective Interval history: Breathing is little bit better but is definitely still not back to her baseline, still difficulty with any ambulation. Exam Constitutional Vital Signs, click to edit/add: Last Vital Signs Temp 98.0 F 02/06/24 08:59 Pulse 81 02/06/24 08:59 Resp 22 H 02/06/24 08:59 BP 148/70 H 02/06/24 08:59 Pulse Ox 90 L 02/06/24 08:59 O2 Del Method Nasal Cannula 02/06/24 08:59 O2 Flow Rate 3 02/06/24 08:59 Documenting provider has reviewed patient's vital signs: yes Common normals: apparent distress (Mild conversational dyspnea) HENMT Common normals: normocephalic Chest Common normals: inspection of chest normal Respiratory Common normals: abnormal respiratory effort (Improved overall) Effort & inspection: able to speak in complete sentences Auscultation: rhonchi (Better air exchange), wheezes (Due for breathing treatment) and egophony right upper Cardio Common normals: regular rate, regular rhythm and no murmurs GI Common normals: Normal to inspection, nondistended, normoactive bowel sounds present Extremity Common normals: abnormal to inspection (2+ edema, worse for her) Progress Note: Objective Labs Labs: Short CBC 02/06/24 Range/Units 04:31 WBC 6.5 (4.0-11.0) 10^3/uL Hgb 10.6 L (12.0-16.0) g/dL Hct 33.9 L (36.0-48.0) % Plt Count 259 (150-450) 10^3/uL BMP 02/06/24 04:31 Sodium 141 Potassium 4.4 Chloride 104 Carbon Dioxide 31.7 BUN 30.0 H Creatinine 1.01 Glucose 220 H Calcium 8.4 L Liver Function 02/06/24 Range/Units 04:31 Total Bilirubin 0.2 (0.2-1.0) mg/dL AST 10 L (15-37) U/L ALT 13 L (14-59) U/L Alkaline Phosphatase 85 (46-116) U/L Albumin 2.3 L (3.4-5.0) g/dL Urine 02/05/24 Range/Units 14:57 Urine Color Lt. yellow (YELLOW) Urine Clarity Clear (CLEAR) Urine pH 5.5 (5.0-9.0) Ur Specific Starlight 1.010 (1.005-1.025) Urine Protein Negative (NEG/TRACE) mg/dL Urine Glucose (UA) Negative (NEGATIVE) mg/dL Progress Note: A&P Assessment and Plan (1) Pneumonia: Qualifiers: Laterality: unspecified laterality Lung location: unspecified part of lung Pneumonia type: due to unspecified organism Qualified Code(s): J18.9 - Pneumonia, unspecified organism (2) Hypomagnesemia: (3) Acute hypokalemia: Plan Admission Dx: Acute hypoxia with O2 saturation of 88% on 2 L, peripheral edema, leukocytosis, hypokalemia, hypomagnesemia secondary to acute exacerbation of COPD due to possible right upper lobe pneumonia-on exam she does have egophony right upper lobe. Check in with pulmonology, continue with current care otherwise. Will decrease steroids today. Leukocytosis improving Peripheral edema-increased from baseline-1 dose of Lasix, -somewhat improved Chronic kidney disease 2-monitor daily-improved Pobitqpqjdb-xrljmgwgwr-zopirpfe supplementation Hypomagnesemia-supplement Significant weakness-will have physical therapy evaluate patient, possible rehab candidate. Evaluation later today Leukocytosis secondary to above-monitor daily-improved Iron deficiency anemia-monitor daily Hyperglycemia-this is likely to progress as she has some previous visits will place patient on insulin sliding scale. Continue to monitor GERD-continue with home medications Chronic pain syndrome-continue with home medications Inpatient criteria: With significant hypoxia for somebody with his baseline supplemental oxygen of 2 L, significant leukocytosis representing possible sepsis, cultures are pending, medically necessary treatment will definitely span 2 midnights she is likely a 4+day hospital stay due to the lack of improvement
--- NOTE | 2024-02-06 10:58 | CM.NOTE ---
Rounds made with Dr. Zepeda, consult made for Dr. Lopes for further recommendations. No discharge for pt today.
[2024-02-06] MEDS: BUDESONIDE 0.5 MG/2 ML AMPULE NEB IH ×2 (10:59→22:14)
[2024-02-06 11:27] LABS: Glucometer 234 mg/dL (74-106)
[2024-02-06] MEDS: AZITHROMYCIN 500 MG in 0.9 % SODIUM CHLORIDE 250 ML 250 MG IV (12:01)
--- NOTE | 2024-02-06 12:02 | PT.DAILY ---
Physical Therapy Daily Note PT Daily Note/Assess Start: 02/06/24 11:57 Freq: Status: Active Protocol: Document 02/06/24 10:30 MICHEL (Rec: 02/06/24 12:02 MICHEL [id number]) Physical Therapy Daily Note/Assessment Time In/Time Out Time In 10:33 Time Out 10:48 Subjective Subjective Main complaint is SOB, getting lightheaded with too much activity. Denies pain. Therapeutic Exercise Time Therapeutic Exercise Minutes (minutes) 5 Therapeutic Exercise Units 0 Therapeutic Exercise Treatment Therapeutic Exercise Treatment Seated exercises B LE in all planes 10 reps. With breaks as needed. Therapeutic Activity Time Therapeutic Activity Minutes (minutes) 10 Therapeutic Activity Units 1 Therapeutic Activity Treatment Chair Transfer Ability Standby Assistance Therapeutic Activity Comments Sit to stand SBA. Gait 20' with 4 WW SBA. Patient starts to become SOB after 10' of ambulation and needs to turn back around to chair, does make it back to chair safely. Reports feeling lightheaded but denies feeling of passing out. Seated rest break with patient working on breathing exercises to decreased SOB. Subsided after 3-5 min. Total Physical Therapy Time Total Therapy Minutes 15 Total Physical Therapy Units 1 Summary Daily Note Summary Patient demonstrates good strength and balance, but very poor endurance becoming SOB very quickly with ambulation. Patient on 3 LO2 throughout RX . Max ambulation distance was 20' with PT today, discussed with patient that if we can not increase this distance may have to look into short term SNF stay vs . Patient understands and states she will do better tomorrow.
--- NOTE | 2024-02-06 15:16 | SWNOTE1 ---
SW spoke with pt in regards to rehab. Nursing mentioned possibility of pt needing rehab and it was in pt's therapy note as well, due to pt getting fatigued going short distances. Pt's daughter and son in law were in room. SW presented the idea of pt going skilled to nursing facility. Pt is unsure at this time and voices she really wants to go home. SW explained the difference between home health and rehab, she voiced understanding. Pt voiced she feels she will be alright at home with home health therapy coming in. Pt's family in room voiced concerns of her getting to bathroom in middle of night and not having the strength. Again pt voiced she wants to go home. SW asked if pt has been to facility in past, she stated yes the [facility], facility in [place], and another facility. SW did let her know that with her insurance she will be a precert and it may take a few days so it would be better to get something started. JAZMIN advised pt and family to discuss and SW will stop back in.
[2024-02-06 16:39] LABS: Glucometer 217 mg/dL (74-106)
[2024-02-06] MEDS: SODIUM CHLORIDE 3% INHALATION 15 ML NEB 3 ML IH ×2 (16:47→22:14)
[2024-02-06] MEDS: PRAMIPEXOLE 0.125 MG TABLET 0.25 MG PO (20:25)
[2024-02-06 21:34] LABS: Glucometer 237 mg/dL (74-106)
[2024-02-06] MEDS: TRAZODONE HCL 50 MG TABLET 100 MG PO (21:57)
[2024-02-06] MEDS: MONTELUKAST SODIUM 10 MG TABLET PO (21:57)
[2024-02-07] VITALS (13 sets, daily range): BP systolic 137–156; BP diastolic 51–89; PULSE 67–86; TEMP 36.3–36.6; O2SAT 90–95
[2024-02-07] MEDS: METHYLPREDNISOLONE SOD SUCC PF 125 MG/2 ML VIAL 40 MG IVP ×4 (03:09→21:19)
[2024-02-07] MEDS: IPRATROPIUM/ALBUTEROL SULFATE 3 ML AMPUL.NEB IH ×4 (04:36→22:21)
[2024-02-07] MEDS: SODIUM CHLORIDE 3% INHALATION 15 ML NEB 3 ML IH ×4 (04:36→22:21)
[2024-02-07] MEDS: BACLOFEN 10 MG TABLET PO ×3 (05:09→21:21)
[2024-02-07 05:27] LABS: Basophils Absolute Auto 0.1 10^3/uL (0.0-0.1); Basophils Percent Auto 0.6 % (0.2-2.0); Eosinophils Percent Auto 0.1 % (0.9-7.0); Hematocrit 35.5 % (36.0-48.0); Hemoglobin 11.2 g/dL (12.0-16.0); Immature Granulocytes Abs Auto 0.88 10^3/uL (0.00-0.03); Immature Granulocytes Pct Auto 11.1 % (0.0-0.5); Lymphocytes Absolute Auto 0.6 10^3/uL (1.2-3.8); Lymphocytes Percent Auto 7.7 % (20.5-60.0); Mean Corpuscular HGB Conc 31.5 g/dL (29.9-35.2); Mean Corpuscular Hemoglobin 30.6 pg (26.7-34.0); Mean Platelet Volume 9.3 fL (9.5-13.5); Monocytes Absolute Auto 0.4 10^3/uL (0.3-0.8); Monocytes Percent Auto 4.5 % (1.7-12.0); Platelet Count 259 10^3/uL (150-450); Red Blood Count 3.66 10^6/uL (4.20-5.40); Red Cell Distribution Width 13.6 % (11.0-15.0); White Blood Count 7.9 10^3/uL (4.0-11.0)
[2024-02-07 06:00] LABS: Alanine Aminotransferase 13 U/L (14-59); Albumin Globulin Ratio 0.7; Albumin Level 2.5 g/dL (3.4-5.0); Alkaline Phosphatase 86 U/L (46-116); Anion Gap 12.5; Aspartate Amino Transferase 11 U/L (15-37); BUN Creatinine Ratio 29.4; Bilirubin Total 0.2 mg/dL (0.2-1.0); Calcium 8.8 mg/dL (8.5-10.1); Chloride 103 mmol/L (98-107); Estimated GFR (African America >60 (>=60); Estimated GFR (Non-African Ame 54 (>=60); Globulin 3.8 g/dL; Glucose 213 mg/dL (74-106); Potassium 4.5 mmol/L (3.5-5.1); Sodium 141 mmol/L (136-145); Total Protein 6.3 g/dL (6.4-8.2)
--- NOTE | 2024-02-07 07:35 | PM.PLPN ---
Progress Note: A&P Assessment and Plan (1) Pneumonia: Assessment and Plan: 1. Healthcare-acquired pneumonia. Infectious component of pneumonia appears to be improving - chest CT shows improvement from prior imaging several months ago. Main issue at this time is pulmonary toilet - already using PEP, saline nebs added yesterday with minimal benefit. She has neuromuscular/diaphragmatic weakness associated with critical illness myopathy and has difficulty clearing secretions. Will try vest here inpatient. If has has success with it, will look into it outpatient after discharge. 2. Zqlju-gr-thoctfe hypoxic respiratory failure. She is on home O2 PRN, now requiring 3L/min. Still requiring supplemental O2 at this time; anticipate she will continue to require it ATC @ discharge. 3. 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 Impeding clearance of secretions. Pulmonary toilet as above. 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 Affecting clearance of secretions, has weak concepcion maneuver. 5. Excessive daytime hypersomnolence. GURWINDER has been R/O on PSG 01/02/2024. She does have very significant snoring - has upper airway resistance syndrome. 6. Morbid obesity with BMI 41.4. Weight loss advised. Contributing to restrictive pulmonary physiology. Qualifiers: Laterality: unspecified laterality Lung location: unspecified part of lung Pneumonia type: due to unspecified organism Qualified Code(s): J18.9 - Pneumonia, unspecified organism Subjective Subjective Interval history: Patient continues to complain of weakness and fatigue - not much improvement from yesterday. Still has chest congestion and limited ability to expectorate. Saline nebs added yesterday in conjunction with PEP with some limited improvement. Denies fevers, chills, or sweats. Exam Constitutional Vital Signs, click to edit/add: Last Vital Signs Temp 97.6 F 02/07/24 04:00 Pulse 74 02/07/24 04:52 Resp 20 02/07/24 04:52 BP 147/68 H 02/07/24 04:00 Pulse Ox 94 L 02/07/24 04:52 O2 Del Method Nasal Cannula 02/07/24 04:52 O2 Flow Rate 4 02/07/24 04:52 Documenting provider has reviewed patient's vital signs: yes Common normals: no apparent distress Chest Common normals: inspection of chest normal Respiratory Other: Continues to have diffuse rhonchi, crackles though slightly less compared to yesterday. Cardio Other: RRR GI Other: Increased central adiposity Extremity Other: No edema Neuro Common normals: oriented x3 Sensorium/orientation: awake and alert Psych Attitude: calm and engaged
[2024-02-07] MEDS: INSULIN ASPART 300 UNIT/3 ML PEN SUBQ ×4 (08:28→21:20)
[2024-02-07] MEDS: PAROXETINE HCL 20 MG TABLET 30 MG PO (08:39)
[2024-02-07] MEDS: GUAIFENESIN 600 MG TAB.ER.12H PO ×2 (08:39→21:21)
[2024-02-07] MEDS: MAGNESIUM OXIDE 400 MG TABLET PO (08:39)
[2024-02-07] MEDS: PREGABALIN 75 MG CAPSULE PO ×2 (08:39→21:21)
[2024-02-07] MEDS: POTASSIUM CHLORIDE 10 MEQ ER TABLET 20 MEQ PO ×2 (08:39→21:21)
[2024-02-07] MEDS: OMEPRAZOLE 20 MG CAPSULE.DR PO ×2 (08:39→21:21)
[2024-02-07] MEDS: LOSARTAN POTASSIUM 50 MG TABLET PO ×2 (08:39→21:21)
[2024-02-07] MEDS: SOLIFENACIN SUCCINATE 10 MG TABLET PO (08:39)
[2024-02-07] MEDS: ENSURE HP 237 ML LIQUID PO ×2 (08:40→21:19)
--- NOTE | 2024-02-07 09:29 | SWNOTE1 ---
SW stopped in at 4:25pm yesterday (02/06/24) to speak with pt again about going skilled and see what family and pt decided. She voiced at this time she is going to go home with her home health.
--- NOTE | 2024-02-07 09:30 | P.PN_ITS ---
Progress Note: Subjective Subjective Interval history: Patient did not feel like her breathing is made any significant improvement. Does not feel worse however either. Exam Constitutional Vital Signs, click to edit/add: Last Vital Signs Temp 97.7 F 02/07/24 08:00 Pulse 83 02/07/24 08:00 Resp 20 02/07/24 08:00 BP 156/51 H 02/07/24 08:00 Pulse Ox 91 L 02/07/24 08:00 O2 Del Method Nasal Cannula 02/07/24 08:00 O2 Flow Rate 4 02/07/24 08:00 Documenting provider has reviewed patient's vital signs: yes Common normals: apparent distress (Mild conversational dyspnea) HENMT Common normals: normocephalic Chest Common normals: inspection of chest normal Respiratory Common normals: abnormal respiratory effort (Improved overall) Effort & inspection: able to speak in complete sentences Auscultation: rhonchi (Unchanged from previous day), wheezes (Due for breathing treatment) and egophony right upper Cardio Common normals: regular rate, regular rhythm and no murmurs GI Common normals: Normal to inspection, nondistended, normoactive bowel sounds present Extremity Common normals: abnormal to inspection (2+ edema, worse for her) Progress Note: Objective Labs Labs: Short CBC 02/07/24 Range/Units 04:47 WBC 7.9 (4.0-11.0) 10^3/uL Hgb 11.2 L (12.0-16.0) g/dL Hct 35.5 L (36.0-48.0) % Plt Count 259 (150-450) 10^3/uL BMP 02/07/24 04:47 Sodium 141 Potassium 4.5 Chloride 103 Carbon Dioxide 30.0 BUN 30.0 H Creatinine 1.02 Glucose 213 H Calcium 8.8 Liver Function 02/07/24 Range/Units 04:47 Total Bilirubin 0.2 (0.2-1.0) mg/dL AST 11 L (15-37) U/L ALT 13 L (14-59) U/L Alkaline Phosphatase 86 (46-116) U/L Albumin 2.5 L (3.4-5.0) g/dL Progress Note: A&P Assessment and Plan (1) Pneumonia: Qualifiers: Laterality: unspecified laterality Lung location: unspecified part of lung Pneumonia type: due to unspecified organism Qualified Code(s): J18.9 - Pneumonia, unspecified organism (2) Hypomagnesemia: (3) Acute hypokalemia: Plan Admission Dx: Acute hypoxia with O2 saturation of 88% on 2 L, peripheral edema, leukocytosis, hypokalemia, hypomagnesemia secondary to acute exacerbation of COPD due to acute hospital-acquired right upper lobe pneumonia-on exam she does have egophony right upper lobe. Hold off on decreasing steroids for the today. Will check in with pulmonology for further planning, on 4 L currently this morning Peripheral edema-increased from baseline-1 dose of Lasix, -somewhat improved Chronic kidney disease 2-monitor daily-improved Snbrlqolreh-qdbjavhqus-tekehydx supplementation Hypomagnesemia-supplement Significant weakness-will have physical therapy evaluate patient, possible rehab candidate. Evaluation later today Leukocytosis secondary to above-monitor daily-improved Iron deficiency anemia-monitor daily Hyperglycemia-this is likely to progress as she has some previous visits will place patient on insulin sliding scale. Adjust sliding scale today GERD-continue with home medications Chronic pain syndrome-continue with home medications Inpatient criteria: With significant hypoxia for somebody with his baseline supplemental oxygen of 2 L, significant leukocytosis representing possible sepsis, cultures are pending, medically necessary treatment will definitely span 2 midnights she is likely a 4+day hospital stay due to the lack of improvement, discussing with pulmonology
--- NOTE | 2024-02-07 09:32 | CM.NOTE ---
Rounds made with Dr. Zepeda, no discharge today. Pt continues with increased work of breathing. Dr. Lopes will start IPV treatments today.
[2024-02-07] MEDS: FLUCONAZOLE 100 MG TABLET PO (10:27)
[2024-02-07] MEDS: BUDESONIDE 0.5 MG/2 ML AMPULE NEB IH ×2 (10:34→22:21)
[2024-02-07] MEDS: CEFTRIAXONE 1,000 MG in 0.9 % SODIUM CHLORIDE 50 ML 100 MG IV (10:43)
[2024-02-07] MEDS: 0.9 % SODIUM CHLORIDE 250 ML 10 ML IV (10:44)
[2024-02-07 11:03] LABS: Glucometer 269 mg/dL (74-106)
[2024-02-07] MEDS: AZITHROMYCIN 500 MG in 0.9 % SODIUM CHLORIDE 250 ML 125 MG IV (11:19)
[2024-02-07 16:10] LABS: Glucometer 170 mg/dL (74-106)
[2024-02-07 20:08] LABS: Glucometer 322 mg/dL (74-106)
[2024-02-07] MEDS: MONTELUKAST SODIUM 10 MG TABLET PO (21:21)
[2024-02-07] MEDS: TRAZODONE HCL 50 MG TABLET 100 MG PO (21:21)
[2024-02-07] MEDS: PRAMIPEXOLE 0.125 MG TABLET 0.25 MG PO (21:21)
[2024-02-08] MEDS: METHYLPREDNISOLONE SOD SUCC PF 125 MG/2 ML VIAL 40 MG IVP ×2 (03:40→10:04)
[2024-02-08 03:44] VITALS: BP 142/80; PULSE 60; TEMP 36.6; O2SAT 91
[2024-02-08 05:27] VITALS: PULSE 72; O2SAT 93
[2024-02-08] MEDS: IPRATROPIUM/ALBUTEROL SULFATE 3 ML AMPUL.NEB IH ×2 (05:27→11:23)
[2024-02-08] MEDS: SODIUM CHLORIDE 3% INHALATION 15 ML NEB 3 ML IH ×2 (05:27→11:23)
[2024-02-08 05:30] LABS: Basophils Percent Auto 0.1 % (0.2-2.0); Hematocrit 35.1 % (36.0-48.0); Hemoglobin 11.3 g/dL (12.0-16.0); Immature Granulocytes Pct Auto 15.6 % (0.0-0.5); Lymphocytes Absolute Auto 0.8 10^3/uL (1.2-3.8); Mean Corpuscular HGB Conc 32.2 g/dL (29.9-35.2); Mean Corpuscular Hemoglobin 30.9 pg (26.7-34.0); Mean Corpuscular Volume 95.9 fL (81.0-99.0); Mean Platelet Volume 9.8 fL (9.5-13.5); Monocytes Absolute Auto 0.7 10^3/uL (0.3-0.8); Monocytes Percent Auto 5.6 % (1.7-12.0); Neutrophils Absolute Auto 8.3 10^3/uL (1.4-6.5); Neutrophils Percent Auto 71.7 % (43.0-75.0); Platelet Count 283 10^3/uL (150-450); Red Blood Count 3.66 10^6/uL (4.20-5.40); Red Cell Distribution Width 13.7 % (11.0-15.0); White Blood Count 11.5 10^3/uL (4.0-11.0)
[2024-02-08 05:59] LABS: Alanine Aminotransferase 15 U/L (14-59); Albumin Globulin Ratio 0.7; Albumin Level 2.4 g/dL (3.4-5.0); Alkaline Phosphatase 88 U/L (46-116); Anion Gap 12.2; Aspartate Amino Transferase 11 U/L (15-37); BUN Creatinine Ratio 28.4; Bilirubin Total 0.3 mg/dL (0.2-1.0); Calcium 8.5 mg/dL (8.5-10.1); Carbon Dioxide 29.5 mmol/L (21.0-32.0); Chloride 103 mmol/L (98-107); Estimated GFR (African America >60 (>=60); Estimated GFR (Non-African Ame 50 (>=60); Globulin 3.5 g/dL; Glucose 215 mg/dL (74-106); Potassium 4.7 mmol/L (3.5-5.1); Sodium 140 mmol/L (136-145); Total Protein 5.9 g/dL (6.4-8.2)
[2024-02-08] MEDS: BACLOFEN 10 MG TABLET PO (06:18)
[2024-02-08 07:54] LABS: Glucometer 208 mg/dL (74-106)
--- NOTE | 2024-02-08 08:02 | PM.PLPN ---
Progress Note: A&P Assessment and Plan (1) Pneumonia: Assessment and Plan: 1. Healthcare-acquired pneumonia. Clinically improving. Continuing with pulmonary toilet - vest has helped to mobilize secretions, along with saline nebs and PEP. 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 Patient stated that she would be willing to use it outpatient. Will discuss this with her at her outpatient F/U appointment, submit documentation, and order the vest at that time. 2. Aaiig-qo-khcgryp hypoxic respiratory failure. She will need to be assessed prior to discharge regarding adequate flows @ rest and with activity - she has home O2 currently, but was using it PRN. 3. 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 Impeding clearance of secretions. Pulmonary toilet as above. 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 Continues to adversely affect clearance of secretions. She has had benefit with the vest after failing PEP and saline nebs. 5. Excessive daytime hypersomnolence. GURWINDER has been R/O on PSG 01/02/2024. She does have very significant snoring - has upper airway resistance syndrome. 6. Morbid obesity with BMI 41.4. Weight loss advised. Contributing to restrictive pulmonary physiology. Qualifiers: Laterality: unspecified laterality Lung location: unspecified part of lung Pneumonia type: due to unspecified organism Qualified Code(s): J18.9 - Pneumonia, unspecified organism Plan After patient is ambulated on O2 to determine the adequate flow (if @ 4L/min or less), she should be acceptable for discharge from a pulmonary standpoint. She has an appointment scheduled with me on 02/20/2024 @ 11:20 (we moved up her appointment from later this month). Will begin paperwork for vest at that time. Can be discharged on comparable oral antibiotics and prednisone taper. Subjective Subjective Interval history: First thing patient tells me is that I feel a little better today. She was started on the vest and states that has really helped to mobilize secretions. She tolerated it well without any complaints. Still has congestion and coughing, but it has improved from admission. Denies any fevers, chills, sweats. Discussed home O2 - she is still requiring 3L/min @ rest. Exam Constitutional Vital Signs, click to edit/add: Last Vital Signs Temp 97.8 F 02/08/24 03:44 Pulse 72 02/08/24 05:27 Resp 24 H 02/08/24 05:27 BP 142/80 H 02/08/24 03:44 Pulse Ox 93 L 02/08/24 05:27 O2 Del Method Nasal Cannula 02/08/24 05:27 O2 Flow Rate 3 02/08/24 05:27 Documenting provider has reviewed patient's vital signs: yes Common normals: no apparent distress Other: No conversational dyspnea today. HENMT Other: No candidiasis Chest Common normals: inspection of chest normal Respiratory Other: More air movement today, but still has rhonchi, more in the bases Cardio Common normals: regular rate and regular rhythm Other: RRR GI Inspection: normal to inspection Other: Increased central adiposity Extremity Other: No edema Neuro Common normals: oriented x3 Sensorium/orientation: awake and alert Speech: speech normal Psych Attitude: calm and engaged Thought process: normal thought process Thought content: normal thought content
[2024-02-08] MEDS: POTASSIUM CHLORIDE 10 MEQ ER TABLET 20 MEQ PO (08:19)
[2024-02-08] MEDS: SOLIFENACIN SUCCINATE 10 MG TABLET PO (08:19)
[2024-02-08 08:20] VITALS: BP 151/75
[2024-02-08] MEDS: MAGNESIUM OXIDE 400 MG TABLET PO (08:20)
[2024-02-08] MEDS: GUAIFENESIN 600 MG TAB.ER.12H PO (08:20)
[2024-02-08] MEDS: LOSARTAN POTASSIUM 50 MG TABLET PO (08:20)
[2024-02-08] MEDS: FLUCONAZOLE 100 MG TABLET PO (08:20)
[2024-02-08] MEDS: HYDRALAZINE HCL 25 MG TABLET 50 MG PO (08:20)
[2024-02-08] MEDS: PREGABALIN 75 MG CAPSULE PO (08:20)
[2024-02-08] MEDS: PAROXETINE HCL 20 MG TABLET 30 MG PO (08:20)
[2024-02-08] MEDS: OMEPRAZOLE 20 MG CAPSULE.DR PO (08:20)
[2024-02-08] MEDS: INSULIN ASPART 300 UNIT/3 ML PEN SUBQ ×2 (08:21→11:26)
[2024-02-08 08:27] VITALS: BP 151/75; PULSE 73; TEMP 36.6; O2SAT 92
--- NOTE | 2024-02-08 09:29 | P.DS_ITS ---
DS: Providers Provider Date of admission: 02/03/24 16:39 Primary care physician: Shaikh Lev MD Consults: 02/03/24 13:03 Consult to Pharmacy Routine Consulting Provider: Reason for consultation: Please Leslie me when Med Rec is Updated Has provider been notified: No Occupational Therapy Eval and Treat Routine Reason for consultation: Only if needed for Rehab Has provider been notified: No Physical Therapy Eval and Treat Routine Reason for consultation: Eval and Treat Has provider been notified: No 02/05/24 09:09 Consult to Pulmonology Routine Consulting Provider: Corbin Lopes Reason for consultation: known to him - copd DS: Diagnosis Discharge Diagnosis (1) Pneumonia: Qualifiers: Laterality: unspecified laterality Lung location: unspecified part of lung Pneumonia type: due to unspecified organism Qualified Code(s): J18.9 - Pneumonia, unspecified organism Plan Admission Dx: Acute hypoxia with O2 saturation of 88% on 2 L, peripheral edema, leukocytosis, hypokalemia, hypomagnesemia secondary to acute exacerbation of COPD due to acute hospital-acquired right upper lobe pneumonia-on exam she does have egophony right upper lobe. Hold off on decreasing steroids for the today. Will check in with pulmonology for further planning, on 4 L currently this morning Peripheral edema-increased from baseline-1 dose of Lasix, -somewhat improved Chronic kidney disease 2-monitor daily-improved Iyjvwetowfo-txqtjpcyab-knzswlob supplementation Hypomagnesemia-supplement Significant weakness-will have physical therapy evaluate patient, possible rehab candidate. Evaluation later today Leukocytosis secondary to above-monitor daily-improved Iron deficiency anemia-monitor daily Hyperglycemia-this is likely to progress as she has some previous visits will place patient on insulin sliding scale. Adjust sliding scale today GERD-continue with home medications Chronic pain syndrome-continue with home medications Inpatient criteria: With significant hypoxia for somebody with his baseline supplemental oxygen of 2 L, significant leukocytosis representing possible sepsis, cultures are pending, medically necessary treatment will definitely span 2 midnights she is likely a 4+day hospital stay due to the lack of improvement, discussing with pulmonology ? DS: Summary Hospital Course Hospital Course: Patient presented to the emergency room and was Admission Dx: Acute hypoxia with O2 saturation of 88% on 2 L, peripheral edema, leukocytosis, hypokalemia, hypomagnesemia secondary to acute exacerbation of COPD due to acute hospital- acquired right upper lobe pneumonia-on exam she does have egophony right upper lobe. Placed on IV antibiotics, steroids, frequent aerosol treatments. Patient did not really improve over the first couple days. Consultation with pulmonology, increased pulmonary toilet, really no change with that. Change patient's breathing treatments around and she is somewhat better today. She is back down to 3 L. She was up to 4 L. Her baseline that was 2. The plan is to ambulate her in the hallway today if she maintains her sats on 3 L she can be discharged to home in improving condition. Medications see list. Follow-up with pulmonology and PCP within the next week. Time Spent with Patient Time attestation: Total time spent providing and/or coordinating discharge services: Exam Constitutional Vital Signs, click to edit/add: Last Vital Signs Temp 97.9 F 02/08/24 08:27 Pulse 73 02/08/24 08:27 Resp 20 02/08/24 08:27 BP 151/75 H 02/08/24 08:27 Pulse Ox 92 L 02/08/24 08:27 O2 Del Method Nasal Cannula 02/08/24 08:27 O2 Flow Rate 3 02/08/24 08:27 Documenting provider has reviewed patient's vital signs: yes Common normals: apparent distress (Mild conversational dyspnea) HENMT Common normals: normocephalic Chest Common normals: inspection of chest normal Respiratory Common normals: abnormal respiratory effort (Improved overall) Effort & inspection: able to speak in complete sentences Auscultation: rhonchi (Unchanged from previous day), wheezes (Due for breathing treatment) and egophony right upper Cardio Common normals: regular rate, regular rhythm and no murmurs GI Common normals: Normal to inspection, nondistended, normoactive bowel sounds present Extremity Common normals: abnormal to inspection (2+ edema, worse for her) DS: Data Data Completed and Pending Labs on day of discharge: Labs from last 24 hours 02/08/24 02/08/24 02/07/24 07:53 04:30 20:07 WBC 11.5 H RBC 3.66 L Hgb 11.3 L Hct 35.1 L MCV 95.9 MCH 30.9 MCHC 32.2 RDW 13.7 Plt Count 283 MPV 9.8 Neut % (Auto) 71.7 Lymph % (Auto) 7.0 L [place] % (Auto) 5.6 Eos % (Auto) 0.0 L Baso % (Auto) 0.1 L Neut # (Auto) 8.3 H Lymph # (Auto) 0.8 L [place] # (Auto) 0.7 Eos # (Auto) 0.0 Baso # (Auto) 0.0 Abs Immat Gran (auto) 1.80 H Imm/Tot Granulo (auto) 15.6 H Sodium 140 Potassium 4.7 Chloride 103 Carbon Dioxide 29.5 Anion Gap 12.2 BUN 31.0 H Creatinine 1.09 H Est GFR ( Amer) >60 Est GFR (Non-Af Amer) 50 L BUN/Creatinine Ratio 28.4 Glucose 215 H Calcium 8.5 Total Bilirubin 0.3 AST 11 L ALT 15 Alkaline Phosphatase 88 Total Protein 5.9 L Albumin 2.4 L Globulin 3.5 Albumin/Globulin Ratio 0.7 POC Glucose 208 H 322 H 02/07/24 02/07/24 16:09 11:03 WBC RBC Hgb Hct MCV MCH MCHC RDW Plt Count MPV Neut % (Auto) Lymph % (Auto) [place] % (Auto) Eos % (Auto) Baso % (Auto) Neut # (Auto) Lymph # (Auto) [place] # (Auto) Eos # (Auto) Baso # (Auto) Abs Immat Gran (auto) Imm/Tot Granulo (auto) Sodium Potassium Chloride Carbon Dioxide Anion Gap BUN Creatinine Est GFR ( Amer) Est GFR (Non-Af Amer) BUN/Creatinine Ratio Glucose Calcium Total Bilirubin AST ALT Alkaline Phosphatase Total Protein Albumin Globulin Albumin/Globulin Ratio POC Glucose 170 H 269 H Preliminary micro results at discharge 02/03/24 09:15 Blood Culture Result 1 - Preliminary Blood NO GROWTH AT 36-48 HOURS. FINAL TO FOLLOW. 02/03/24 09:10 - Preliminary Blood NO GROWTH AT 36-48 HOURS. FINAL TO FOLLOW. Discharge Plan Discharge Disposition: Home Health Service Discharge Medications: New fluconazole 100 mg Tablet 100 mg PO QD Qty: 10 0RF magnesium oxide 400 mg (241.3 mg magnesium) Tablet 400 mg PO DAILY Qty: 30 11RF prednisone 10 mg tablet 40 mg PO DAILY Qty: 32 0RF Rx Instructions: 4/day for 3 days, 3/day for 3 days, 2/day for 3 days, 1/day for 3 days, 1/2 /day for 4 days levofloxacin 500 mg tablet 500 mg PO DAILY 10 Days Qty: 10 0RF Continued magnesium oxide 400 mg (241.3 mg magnesium) tablet 400 mg PO DAILY Rx Instructions: WITH FOOD omeprazole 20 mg capsule,delayed release(DR/EC) 20 mg PO BID Trelegy Ellipta 200-62.5-25 mcg blister with device 1 inh INHALATION Q24H losartan [Cozaar] 50 mg tablet 50 mg PO BID Hold Instructions: unknown pramipexole [Mirapex] 0.25 mg tablet 0.25 mg PO QPM Rx Instructions: administer 2 - 3 hours before bedtime montelukast 10 mg tablet 10 mg PO DAILY paroxetine HCl 30 mg tablet 30 mg PO QDAY pregabalin 75 mg capsule 75 mg PO BID solifenacin 10 mg tablet 10 mg PO QDAY trazodone 100 mg tablet 100 mg PO .qhs guaifenesin [Mucus Relief ER] 600 mg Tablet Extended Release 12hr 600 mg PO BID 10 Days Qty: 20 0RF baclofen 10 mg tablet 10 mg PO Q8H oxycodone 5 mg tablet 5 mg PO Q6H PRN (Reason: pain) tramadol 50 mg tablet 50 mg PO BID PRN (Reason: pain) Activity: increase activity as tolerated Diet: advance to your usual diet Print Language: Maltese Patient Instructions: COPD (Chronic Obstructive Pulmonary Disease) (DC) Admission Liaison/Crochet Beader Instructions: Discharge with [facility] [place]. Phone number is [phone] They should contact within 48 hours of discharge. Please reach out to them if you have not received phone call within 48 hours by calling the number listed above. Increased oxygen liter flow to 3 liters. Please contact oxygen supplierEugenio at [phone] with any questions. Forms: Portal Instructions Follow Up Appointments: February 14 @ 11am with Kaylene López NP (Dr. Ohara on vacation) [phone] February 19 @ 11:20am with Dr. Lopes ( appt. cancelled) [phone], ext. [phone] Discharge Date/Time: 02/08/24 12:45
[2024-02-08 11:04] LABS: Glucometer 238 mg/dL (74-106)
[2024-02-08] MEDS: BUDESONIDE 0.5 MG/2 ML AMPULE NEB IH (11:23)
[2024-02-08 11:25] VITALS: PULSE 76; O2SAT 93
[2024-02-08 11:49] VITALS: O2SAT 86; O2SAT 92; O2SAT 95
--- NOTE | 2024-02-08 12:21 | SWNOTE1 ---
Pt will need 3 liters of oxygen at home, usually only wears 2 liters. Walk test was completed. SW sent over walk test, script, and doctor documentation to [facility].
--- NOTE | 2024-02-08 13:10 | SWNOTE1 ---
DC med rec, CRF, and progress note from yesterday and therapy notes from yesterday sent to [facility]. Pt is discharging with [facility].
--- NOTE | 2024-02-12 15:33 | CM.DCFOLLOWU ---
Person spoke with: Diana How are you feeling? Feeling How is your pain? No pain Did you understand your discharge instructions? Yes Do you have any questions about your discharge instructions? No Were you given any prescriptions at discharge? Yes Were you able to get your prescriptions filled? Yes Do you understand how to take your medications as ordered? Yes Do you have any questions about your follow up appointment and do you plan to keep your follow up appointment? No and plan on going to appt Is there anything else that you would like to discuss? No Questions/Comments/Concerns/Other:
== END 2024-02-08 12:45 | disposition home health service (06) | DRG 193 ==
LOC: ER 16:36 → MS 16:44
PROVIDERS: Admitting Provider Family Medicine; Emergency Provider Emergency Medicine; PCP Internal Medicine; Visit Provider Family Medicine
DX: J18.9 Pneumonia, unspecified organism (principal); B37.1 Pulmonary candidiasis; J96.21 Acute and chronic respiratory failure with hypoxia; I13.0 Hypertensive heart and chronic kidney disease with heart failure and stage 1 through stage 4 chronic kidney disease, or unspecified chronic kidney disease; I50.32 Chronic diastolic (congestive) heart failure; J44.0 Chronic obstructive pulmonary disease with (acute) lower respiratory infection; J44.1 Chronic obstructive pulmonary disease with (acute) exacerbation; J98.19 Other pulmonary collapse; G72.81 Critical illness myopathy; Z68.41 Body mass index [BMI] 40.0-44.9, adult; R60.9 Edema, unspecified; N18.2 Chronic kidney disease, stage 2 (mild); E87.6 Hypokalemia; E83.42 Hypomagnesemia; G47.10 Hypersomnia, unspecified; E66.01 Morbid (severe) obesity due to excess calories; D50.9 Iron deficiency anemia, unspecified; R73.9 Hyperglycemia, unspecified; K21.9 Gastro-esophageal reflux disease without esophagitis; G89.4 Chronic pain syndrome; I25.10 Atherosclerotic heart disease of native coronary artery without angina pectoris; M47.816 Spondylosis without myelopathy or radiculopathy, lumbar region; M48.062 Spinal stenosis, lumbar region with neurogenic claudication; F32.A Depression, unspecified; Y95 Nosocomial condition; M16.11 Unilateral primary osteoarthritis, right hip; M96.1 Postlaminectomy syndrome, not elsewhere classified; Z98.890 Other specified postprocedural states; Z98.1 Arthrodesis status; Z79.899 Other long term (current) drug therapy; Z87.01 Personal history of pneumonia (recurrent); Z99.81 Dependence on supplemental oxygen; Z98.51 Tubal ligation status; Z20.822 Contact with and (suspected) exposure to COVID-19
CPT/HCPCS: 0202U; 36415; 36600; 71045; 71250; 80053; 81003; 82805; 82948; 83605; 83735; 83880; 84443; 84484; 85007; 85025; 85027; 85610; 87040; 87070; 87106; 93005; 94640; 94667; 94668; 94761; 96365; 96366; 96367; 96368; 96375; 96376; 97161; 97165; 97530; 97535; 99285; J0456; J2919; J2930; J3480

== ENCOUNTER 2024-02-13 10:12 | Outpatient (OUT) | payer OTHER, SELFPAY ==
--- NOTE | 2024-02-13 10:16 | MR_ITS ---
[address] [address] Patient Name: JHONATAN MONTOYA MRN: [facility]:[id number] date: 1955 Sex: F Assigned Patient Location: MRI Current Patient Location: MRI Accession/Order Number: [id number] Exam Date: 02/13/2024 10:45 Report Date: 02/13/2024 14:06 At the request of: SHAIKH LUCITA Procedure: MR lumbar spine wo con EXAMINATION: MR lumbar spine wo con HISTORY: chronic bilateral low back pain without sciatica COMPARISON: 09/05/2023 TECHNIQUE: A variety of imaging planes and parameters were utilized for visualization of suspected pathology. FINDINGS: For the purposes of numbering, sagittal T2 image # 8 extends from the T11 vertebral body superiorly to the S3 level inferiorly. PARASPINAL AREA: Normal with no visible mass. BONES: Rotatory dextroscoliosis. Moderate diffuse degenerative spondylosis. Posterior decompression bilateral transpedicular fusion L5-S1. Interbody spacer L5-S1 CORD/CAUDA EQUINA: Normal caliber, contour, and signal intensity. 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 L1-L2: Mild to moderate disc space narrowing and disc desiccation, left greater than right. Moderate left disc/osteophyte complex. Mild trefoil narrowing of the central canal. No right foraminal stenosis. Moderate narrowing of the left neural foramen L2-L3: Moderate left disc space narrowing. Moderate left posterior disc/osteophyte complex and facet osteoarthropathy. Mild trefoil narrowing the central canal. No right foraminal stenosis. Moderate to severe left foraminal stenosis L3-L4: Moderate disc/osteophyte complex and facet osteoarthropathy. No central canal stenosis. Mild to moderate bilateral foraminal stenosis. L4-L5: Disc desiccation. No disc bulge or herniation. No central or foraminal stenosis L5-S1: Posterior decompression and fusion. Interbody spacer. No disc bulge or herniation. No central or foraminal stenosis. MR/MR lumbar spine wo con IMPRESSION: Rotatory dextroscoliosis Moderate to severe degenerative changes resulting in left L1-2 and L2-L3 and bilateral L3-L4 foraminal stenosis Electronically authenticated by: BRITTANY VANESSA Date: 02/13/2024 14:06
--- OUTSIDE RECORDS SUMMARY | 2024-02-13 10:33 | XMS_ITS | CCD ---
Author Organization [facility] Care Team Providers Care Display Fabrication Supervisor Name Role Phone Steph Collier Attending Provider Unavailable Chantel Rainey Primary Care Provider Unavailabl e Joana, Herberth Attending Provider Unavailable Unavailable Primary Care Provider Unavailabl e UNKNOWN, PHYSICIAN Referring Unavailable JOO LINN Attending Unavailable JOO LINN Admitting Unavailable UNKNOWN, PHYSICIAN Primary Care Unavailable Rena Hurd Unavailable Joana, Herberth Unavailable Gato Domingo Unavailable [phone] Steph Collier Attending Provider MD Gato Domingo Attending Provider [phone] MD Nicky Ohara Primary Care Provider Gilma [...] e FAWWAD, SAUNDERS H Primary Care Unavailable DRAKES BRANCH, DR BRITTANY Elizondo Consulting Unavailable ZIEBBETH, DR [...] Unavailable DR STEPH GRANADOS Consulting Unavailable FAWWAD, SANUDERS H Primary Care Unavailable FAWWAD, SAUNDERS H [...] Translations: [fentanyl] Drug Allergy 07-07-20 17 Hallucinating [facility] (2 sources) linezolid; Translations: [LINEZOLID] Drug Allergy 03-17-20 20 [facility] (20 sources) Vancomycin; Translations: [VANCOMYCIN] Drug Allergy 03-17-20 20 Unknown [facility] (11 sources) DENIES METAL SENSITITIVITY Propensity to adverse reactions Unknown [employer] Other Medications Current Medications Medication Drug Class(es) [...] each nostril Nasally Once a day Active Kujezmnabvw-Mpmoluzld-Cy lanter (1 source) Star t: 0212-26 Ibbnxgdyvka-Xispzojij-W ilanter (Trelegy Ellipta) 200-62.5-25 mcg blister with [...] 1 puff(s) by inhalation twice daily Ipratropium [place] Active 2 PUFF Inhalation Twice daily July [...] 2017 10:21am take 1 capsule by mo [facility] every twelve hours Omeprazole 20 MG [...] Active Start: 08-05-2022 take 1 tablet by [facility] every twelve hours Potassium Chloride ER 20 [...] Interpretation Reference Range Facility Follow-Upon 05-08-2023 Follow-Up [id number] Nell Champion 1955 F Date Provider Department Center 05/08/2023 GAURANG HETAL RAINA Baker Family History Problem Relation Age of Onset Heart failure Mother Heart disease Father Family Status - Relation Status Age at Mother Father Level of Service:60570 [place] OFFICE/OUTPATIENT ESTABLISHED LOW MDM 20-29 MIN [facility] 05-03-2023 37 PATIENT CALLED TO CANCEL SURGERY FOR July D/T HER LUNG DISEASE. WILL CALL TO RESCHEDULE WHEN FULLY HEALED FROM LUNGS AND CLEARED//[facility] 3604-19-2023 36 FYI CALLED PATIENT T O F/U ON MEDICAL AND PULMONARY CLEARANCES FOR R ELZA ON 05/19 AND PRE-OP RIYA'T 04/27 WITH US AND PATIENT IS CURRENTLY INPATIENT SINCE LAST WEEK D/T COVID AND PULMONARY ISSUES, SHE WILL CALL US ON 04/25 WITH PROGRESS, PLEASE ADVISE IF WE SHOULD CANCEL SURGERY FOR NOW..THANKS//[facility] SYMPTOMATIC COVID-19 ANTIGEN on 04-04-2023 EUA Statement SEE BELOW Normal [facility] Comment on above: Result Comment: This [...] sooner. Performed By: #### C VDAGS #### [facility] [address] [place] [address] Dr. Shayne Roldan SARS-CoV-2 (COVID-19) RNA KAYLEE+probe Ql (Unsp spec) Positive Abnormal NEGATIVE [facility] Comment on above: Performed By: #### C VDAGS #### [facility] [address] [address] [address] Shayne Roldan XR LSPINE 2_3 VIEWSon [...] STEPH GRANADOS Date: 2023-03-24 12:52 Normal [facility] PTH INTACTon 02-27-2023 PTH, Intact 87 pg/mL Critically high 15-65 The [facility] Comment on above: Performed By: #### P THINT #### [facility] [address] [place] [address] Dr. Shayne Roldan HEMOGRAM AND PLATELon 2022 Hematocrit (Bld) [Volume fraction] 44.4 % Normal 36.0-48.0 [facility] Comment on above: Performed By: #### H H #### [facility] [address] [place] [address] Dr. Shayne Roldan Hemoglobin (Bld) [Mass/Vol] 14.5 g/dL Normal 12.0-16.0 [facility] Comment on above: Performed By: #### H H #### [facility] [address] [place] [address] Dr. Shayne Roldan MCH (RBC) [Entitic mass] 30.3 pg Normal 26.7-34.0 [facility] Comment on above: Performed By: #### H H #### [facility] [address] [place] [address] Dr. Shayne Roldan MCHC (RBC) [Mass/Vol] 32.7 g/dL Normal 29.9-35.2 [facility] Comment on above: Performed By: #### H H #### [facility] [address] [place] [address] Dr. Shayne Roldan MCV (RBC) [Entitic vol] 92.9 fL Normal 81.0-99.0 [facility] Comment on above: Performed By: #### H H #### [facility] [address] [place] [address] Dr. Shayne Roldan PLT 367 103/ul Normal 150-450 [facility] Comment on above: Performed By: #### H H #### [facility] [address] [place] [address] Dr. Shayne Roldan RBC 4.78 106/ul Normal 4.20-5.40 [facility] Comment on above: Performed By: #### H H #### [facility] [address] [place] [address] Dr. Shayne Roldan WBC 9.9 103/ul Normal 4.0-11.0 [facility] Comment on above: Performed By: #### H H #### [facility] [address] [place] [address] Dr. Shayne Roldan MAGNESIUMon 02-25-2023 Magnesium [Mass/Vol] 1.6 mg/dL Critically low 1.8-2.4 [facility] Comment on above: Performed By: #### M G, RENAL, URIC #### [facility] [address] [place] [address] Dr. Shayne Roldan RENAL FUNCTION PANELon 02-25 Albumin [Mass/Vol] 3.4 g/dL Normal 3.4-5.0 [facility] Comment on above: Performed By: #### M G, RENAL, URIC #### [facility] [address] [place] [address] Dr. Shayne Roldan Calcium [Mass/Vol] 8.7 mg/dL Normal 8.5-10.1 [facility] Comment on above: Performed By: #### M G, RENAL, URIC #### [facility] [address] [address] [address] Shayne Roldan Chloride [Moles/Vol] 104 mmol/L Normal 98-107 [facility] Comment on above: Performed By: #### M G, RENAL, URIC #### [facility] [address] [address] [address] Shayne Roldan CO2 [Moles/Vol] 25.9 mmol/L Normal 21.0-32.0 [facility] Comment on above: Performed By: #### M G, RENAL, URIC #### [facility] [address] [address] [address] Shayne Roldan Creatinine [Mass/Vol] 1.19 mg/dL Critically high 0.55-1.02 [facility] Comment on above: Performed By: #### M G, RENAL, URIC #### [facility] [address] [place] [address] Dr. Shayne Roldan EGFR-AF SOUTH AFRICAN 55 mL/min/1.73m2 Critically low >=60 [facility] Comment on above: Performed By: #### M G, RENAL, URIC #### [facility] [address] [address] [address] Shayne Roldan EGFR-NON AF SOUTH AFRICAN 45 mL/min/1.73m2 Critically low >=60 [facility] Comment on above: Performed By: #### M G, RENAL, URIC #### [facility] [address] [address] [address] Shayne Roldan Glucose [Mass/Vol] 193 mg/dL Critically high 74-106 [facility] Comment on above: Performed By: #### M G, RENAL, URIC #### [facility] [address] [address] [address] Shayne Roldan Phosphate [Mass/Vol] 3.2 mg/dL Normal 2.6-4.7 [facility] Comment on above: Performed By: #### M G, RENAL, URIC #### [facility] [address] [address] [address] Shayne Roldan Potassium [Moles/Vol] 3.9 mmol/L Normal 3.5-5.1 [facility] Comment on above: Performed By: #### M G, RENAL, URIC #### [facility] [address] [address] [address] Shayne Roldan Sodium [Moles/Vol] 140 mmol/L Normal 136-145 [facility] Comment on above: Performed By: #### M G, RENAL, URIC #### [facility] [address] [address] [address] Shayne Roldan Urea nitrogen [Mass/Vol] 17.0 mg/dL Normal 7.0-18.0 [facility] Comment on above: Performed By: #### M G, RENAL, URIC #### [facility] [address] [place] [address] Dr. Shayne Roldan UA RANDOM W/MICROSCOPICon BACTERIA TRACE Abnormal NONE SEEN [facility] Comment on above: Performed By: #### M G, RENAL, URIC #### [facility] [address] [place] [address] Dr. Shayne Roldan Bilirubin Ql (U) Negative Normal NEGATIVE [facility] Comment on above: Performed By: #### M G, RENAL, URIC #### [facility] [address] [place] [address] Dr. Shayne Roldan CAST NONE SEEN Normal NONE SEEN [facility] Comment on above: Performed By: #### M G, RENAL, URIC #### [facility] [address] [place] [address] Dr. Shayne Roldan Clarity (U) CLEAR Normal CLEAR [facility] Comment on above: Performed By: #### M G, RENAL, URIC #### [facility] [address] [place] [address] Dr. Shayne Roldan Color (U) LT. YELLOW Normal YELLOW [facility] Comment on above: Performed By: #### M G, RENAL, URIC #### [facility] [address] [place] [address] Dr. Shayne Roldan Crystals LM Nom (Urine sed) NONE SEEN Normal NONE SEEN [facility] Comment on above: Performed By: #### M G, RENAL, URIC #### [facility] [address] [address] [address] Shayne Roldan Epithelial cells LM Ql (Urine sed) RARE Normal NONE SEEN /RARE [facility] Comment on above: Performed By: #### M G, RENAL, URIC #### [facility] [address] [address] [address] Shayne Roldan Glucose Ql (U) Negative Normal NEGATIVE [facility] Comment on above: Performed By: #### M G, RENAL, URIC #### [facility] [address] [address] [address] Shayne Roldan Hemoglobin Ql (U) Negative Normal NEGATIVE [facility] Comment on above: Performed By: #### M G, RENAL, URIC #### [facility] [address] [address] [address] Shayne Roldan Ketones Ql (U) Negative Normal NEGATIVE [facility] Comment on above: Performed By: #### M G, RENAL, URIC #### [facility] [address] [address] [address] Shayne Roldan LEUKOCYTES Negative Normal NEGATIVE [facility] Comment on above: Performed By: #### M G, RENAL, URIC #### [facility] [address] [address] [address] Shayne Roldan MUCOUS NONE SEEN Normal NONE SEEN [facility] Comment on above: Performed By: #### M G, RENAL, URIC #### [facility] [address] [address] [address] Shayne Roldan Nitrite Ql (U) Negative Normal NEGATIVE [facility] Comment on above: Performed By: #### M G, RENAL, URIC #### [facility] [address] [address] [address] Shayne Roldan pH (U) 5.0 [pH] Normal 5-9 [facility] Comment on above: Performed By: #### M G, RENAL, URIC #### [facility] [address] [address] [address] Shayne Roldan RBC 0-2 Normal 0-2 [facility] Comment on above: Performed By: #### M G, RENAL, URIC #### [facility] [address] [address] [address] Shayne Roldan SPEC GRAVITY 1.025 Normal 1.005-<=1.025 [facility] Comment on above: Performed By: #### M G, RENAL, URIC #### [facility] [address] [address] [address] Shayne Roldan UA PROTEIN Negative Normal NEGATIVE/ TRACE [facility] Comment on above: Performed By: #### M G, RENAL, URIC #### [facility] [address] [address] [address] Shayne Roldan Urobilinogen Qn (U) 0.2 {Rogelio'U}/dL Normal 0.2 - 1. 0 [facility] Comment on above: Performed By: #### M G, RENAL, URIC #### [facility] [address] [place] [address] Dr. Shayne Roldan WBC 0-2 Abnormal NONE SEEN [facility] Comment on above: Performed By: #### M G, RENAL, URIC #### [facility] [address] [place] [address] Dr. Shayne Roldan URIC ACID SERUMon 02-25-2023 Urate [Mass/Vol] 6.1 mg/dL Critically high 2.6-6.0 [facility] Comment on above: Performed By: #### M G, RENAL, URIC #### [facility] [address] [place] [address] Dr. Shayne Roldan URINE T PROTEIN CREAT RATIOo n 02-25-2023 Protein (U) [Mass/Vol] 13.0 mg/dL Critically high <=12.0 [facility] Comment on above: Performed By: #### M G, RENAL, URIC #### [facility] [address] [place] [address] Dr. Shayne Roldan UR PROT CREAT RAT 0.16 Normal [facility] Comment on above: Performed By: #### M G, RENAL, URIC #### [facility] [address] [address] [address] Shayne Roldan URINE CREAT 83.60 mg/dL Normal 20.00-300.00 [facility] Comment on above: Performed By: #### M G, RENAL, URIC #### [facility] [address] [address] [address] Shayne Roldan VITAMIN D 25 OHon 02-25-2023 VIT D 25-OH 41.6 ng/mL Normal [facility] Comment on above: Performed By: #### M G, RENAL, URIC #### [facility] [address] [address] [address] Shayne Roldan VIT D RANGES SEE BELOW Normal [facility] Comment on above: Result Comment: <20 ng/mL Vit D deficient 20 - <30 ng/mL Vit D insufficient 30 - 100 ng/mL Vit D sufficient >100 ng/mL Potential Toxicity Performed By: #### M G, RENAL, URIC #### [facility] [address] [place], [place] [address] Dr. Shayne Roldan XR CHEST 2 Von [...] BRITTANY GALDAMEZ Date: 2023-02-22 16:15 Normal [facility] MAMM SCREEN 3D PRATEEK CADon 12-15-2022 MG MAMM SCREEN 3D PRATEEK CAD Patient: DIANA CHAMPION Exam Date: 12/15/2022 : 1955 Gender:F Ordering : DR JACK HALL . Admission #: [id number] Family : Order #: [id number] CLICK HERE TO VIEW EXAM RADIOLOGY REPORT PROCEDURE: MAMMOGRAM SCREENING 3D BILATERAL CAD COMPARISON: MG MAMM SCREEN 3D PRATEEK CAD, 11/26/2021. INDICATIONS: Calculator Name NCI Breast Cancer Risk Assessment Tool 5 Year Breast Cancer Risk 1.20% Lifetime Breast Cancer Risk 4.40% Personal Breast Cancer No Personal Ovarian Cancer No Treatments Excision, radiation, chemotherapy Family Cancers None LOCATION: [facility] BREAST COMPOSITION: Almost entirely fatty. FINDINGS: [...] Walters MD on 12/15/2022 at 10:51 Normal [facility] XR DEXA BONE DENSITYon 12-15 XR DEXA [...] by: STEPH GRANADOS Date: 2022-12-15 09:50 Normal [facility] Fran 12-08-2022 L - -------- Specimen: [id number] Received: 12/08/22 Status: CELIA Eliza Num: [id number] Spec Type: Surgical Subm Dr: Gato Domingo MD Tissues: A Colon Biopsy (DESC COL POLYP) Procedures: HE/2, Gross/Micro L4 -------- Age/ Patient Sex Location Account Attending Physician -------- Diana Champion 67/F [id number] Gato Domingo MD -------- SPEC NUM: [id number] RECD: 12/08/221006 STATUS: CELIA KAY NUM: [id number] KENDRA: 12/08/[address] [facility] [address]: Gato Domingo MD ENTERED: 12/08/[address] [facility] [address]: KHRIS TYPE: Surgical DEPT: S ENTERED BY: [id number] RECV BY: [id number] ORDERED: HE/2, Gross/Micro L4 ORDERED: HE/2, Gross/Micro [...] support the above pathologic diagnosis. CPT Codes 87849 -------- -------- Specimen: [id number] Received: 12/08/22 Status: CELIA Kay Num: [id number] Spec Type: Surgical Subm Dr: Gato Domingo MD Tissues: A Colon Biopsy (DESC COL POLYP) Procedures: HE/Evonne, Gross/Micro L4 -------- Patient: Diana Champion [id number] (Continued) -------- Signed (signature on file) Eunice Rosa MD 12/09/22 1053 [facility] PAP ACOG PANEL 2: 30 to 65on 11-16-2022 . . Normal [facility] Comment on above: Performed By: #### [id number] #### [facility] [address] [address] [address] Shayne Roldan Age Gdln ACOG Testing Comment [place] Comment on above: Result Comment: <21 or >65 or no age provided Performed By: #### 4 [id number] #### [facility] [address] [address] [address] Shayne Roldan DIAGNOSIS: Comment [place] Comment on above: Result Comment: NEGA TIVE FOR INTRAEPITHELIAL LESION OR MALIGNANCY. Performed By: #### 4 [id number] #### [facility] [address] [place] [address] Dr. Shayne Roldan Methodology: Comment [place] Comment on above: Result Comment: This liquid based ThinPrep(R) pap test was screened with the use of an image guided system. Performed By: #### 4 [id number] #### [facility] [address] [place] [address] Dr. Shayne Roldan Note: Comment [place] Comment on above: Result Comment: The Pap smear is a screening test designed to aid in the detection of premalignant and malignant conditions of the uterine cervix. It is not a diagnostic procedure and should not be used as the sole means of detecting cervical cancer. Both false-positive and false-negative reports do occur. . Performed By: #### 4 [id number] #### [facility] [address] [address] [address] Shayne Roldan Performed by: Comment [facility] Comment on above: Result Comment: Onur Aguilar Forwarder Operator (ASCP) Performed By: #### 4 [id number] #### [facility] [address] [place] [address] Dr. Shayne Roldan Specimen adequacy: Comment [facility] Comment on above: Result Comment: Sati sfactory for evaluation. Endocervical and/or squamous metaplastic cells (endocervical component) are present. Performed By: #### 4 [id number] #### [facility] [address] [place] [address] Dr. Shayne Roldan RENAL FUNCTION PANELon 08-19 Albumin [Mass/Vol] 3.4 g/dL Normal 3.4-5.0 [facility] Comment on above: Performed By: #### M G, RENAL, URIC #### [facility] [address] [place] [address] Dr. Shayne Roldan Calcium [Mass/Vol] 8.4 mg/dL Critically low 8.5-10.1 Th [facility] Comment on above: Performed By: #### M G, RENAL, URIC #### [facility] [address] [place] [address] Dr. Shayne Roldan Chloride [Moles/Vol] 103 mmol/L Normal 98-107 [facility] Comment on above: Performed By: #### M G, RENAL, URIC #### [facility] [address] [place] [address] Dr. Shayne Roldan CO2 [Moles/Vol] 27.8 mmol/L Normal 21.0-32.0 [facility] Comment on above: Performed By: #### M G, RENAL, URIC #### [facility] [address] [place] [address] Dr. Shayne Roldan Creatinine [Mass/Vol] 1.02 mg/dL Normal 0.55-1.02 [facility] Comment on above: Performed By: #### M G, RENAL, URIC #### [facility] [address] [place] [address] Dr. Shayne Roldan EGFR-AF SOUTH AFRICAN >60 Normal >=60 [facility] Comment on above: Performed By: #### M G, RENAL, URIC #### [facility] [address] [place] [address] Dr. Shayne Roldan EGFR-NON AF SOUTH AFR[place] 54 mL/min/1.73m2 Critically low >=60 [facility] Comment on above: Performed By: #### M G, RENAL, URIC #### [facility] [address] [place] [address] Dr. Shayne Roldan Glucose [Mass/Vol] 110 mg/dL Critically high 74-106 T [facility] Comment on above: Performed By: #### M G, RENAL, URIC #### [facility] [address] [place] [address] Dr. Shayne Roldan Phosphate [Mass/Vol] 2.3 mg/dL Critically low 2.6-4.7 [facility] Comment on above: Performed By: #### M G, RENAL, URIC #### [facility] [address] [place] [address] Dr. Shayne Roldan Potassium [Moles/Vol] 3.2 mmol/L Critically low 3.5-5.1 [facility] Comment on above: Performed By: #### M Poncho, RENAL, URIC #### [facility] [address] [place] [address] Dr. Shayne Roldan Sodium [Moles/Vol] 138 mmol/L Normal 136-145 [facility] Comment on above: Performed By: #### M G, RENAL, URIC #### [facility] [address] [place] [address] Dr. Shayne Roldan Urea nitrogen [Mass/Vol] 14.0 mg/dL Normal 7.0-18.0 [facility] Comment on above: Performed By: #### M G, RENAL, URIC #### [facility] [address] [place] [address] Dr. Shayne Roldan PTH INTACTon 08-06-2022 PTH, Intact 40 pg/mL Normal 15-65 [facility] Comment on above: Performed By: #### M G, RENAL, URIC #### [facility] [address] [place] [address] Dr. Shayne Roldan HEMOGRAM AND PLATELon 2021 Hematocrit (Bld) [Volume fraction] 39.8 % Normal 36.0-48.0 [facility] Comment on above: Performed By: #### M G, RENAL, URIC #### [facility] [address] [place] [address] Dr. Shayne Roldan Hemoglobin (Bld) [Mass/Vol] 13.4 g/dL Normal 12.0-16.0 [facility] Comment on above: Performed By: #### M G, RENAL, URIC #### [facility] [address] [place] [address] Dr. Shayne Roldan MCH (RBC) [Entitic mass] 30.5 pg Normal 26.7-34.0 [facility] Comment on above: Performed By: #### M G, RENAL, URIC #### [facility] [address] [place] [address] Dr. Shayne Roldan MCHC (RBC) [Mass/Vol] 33.7 g/dL Normal 29.9-35.2 [facility] Comment on above: Performed By: #### M G, RENAL, URIC #### [facility] [address] [place] [address] Dr. Shayne Roldan MCV (RBC) [Entitic vol] 90.5 fL Normal 81.0-99.0 [facility] Comment on above: Performed By: #### M G, RENAL, URIC #### [facility] [address] [place] [address] Dr. Shayne Roldan PLT 299 103/ul Normal 150-450 [facility] Comment on above: Performed By: #### M G, RENAL, URIC #### [facility] [address] [place] [address] Dr. Shayne Roldan RBC 4.40 106/ul Normal 4.20-5.40 [facility] Comment on above: Performed By: #### M G, RENAL, URIC #### [facility] [address] [place] [address] Dr. Shayne Roldan WBC 8.8 103/ul Normal 4.0-11.0 [facility] Comment on above: Performed By: #### M G, RENAL, URIC #### [facility] [address] [place] [address] Dr. Shayne Roldan MAGNESIUMon 08-05-2022 Magnesium [Mass/Vol] 1.5 mg/dL Critically low 1.8-2.4 [facility] Comment on above: Performed By: #### M G, RENAL, URIC #### [facility] [address] [address] [address] Shayne Roldan RENAL FUNCTION PANELon 08-05 Albumin [Mass/Vol] 3.5 g/dL Normal 3.4-5.0 [facility] Comment on above: Performed By: #### M G, RENAL, URIC #### [facility] [address] [address] [address] Shayne Roldan Calcium [Mass/Vol] 8.4 mg/dL Critically low 8.5-10.1 Th [facility] Comment on above: Performed By: #### M G, RENAL, URIC #### [facility] [address] [address] [address] Shayne Roldan Chloride [Moles/Vol] 101 mmol/L Normal 98-107 [facility] Comment on above: Performed By: #### M G, RENAL, URIC #### [facility] [address] [address] [address] Shayne Roldan CO2 [Moles/Vol] 29.5 mmol/L Normal 21.0-32.0 [facility] Comment on above: Performed By: #### M G, RENAL, URIC #### [facility] [address] [address] [address] Shayne Roldan Creatinine [Mass/Vol] 1.04 mg/dL Critically high 0.55-1.02 [facility] Comment on above: Performed By: #### M G, RENAL, URIC #### [facility] [address] [address] [address] Shayne Roldan EGFR-AF SOUTH AFRICAN >60 Normal >=60 [facility] Comment on above: Performed By: #### M G, RENAL, URIC #### [facility] [address] [address] [address] Shayne Roldan EGFR-NON AF SOUTH AFR[place] 53 mL/min/1.73m2 Critically low >=60 [facility] Comment on above: Performed By: #### M G, RENAL, URIC #### [facility] [address] [address] [address] Shayne Roldan Glucose [Mass/Vol] 92 mg/dL Normal 74-106 [facility] Comment on above: Performed By: #### M G, RENAL, URIC #### [facility] [address] [address] [address] Shayne Roldan Phosphate [Mass/Vol] 2.4 mg/dL Critically low 2.6-4.7 [facility] Comment on above: Performed By: #### M G, RENAL, URIC #### [facility] [address] [place] [address] Dr. Shayne Roldan Potassium [Moles/Vol] 2.8 mmol/L Critically low 3.5-5.1 [facility] Comment on above: Performed By: #### M G, RENAL, URIC #### [facility] [address] [place] [address] Dr. Shayne Roldan Sodium [Moles/Vol] 137 mmol/L Normal 136-145 [facility] Comment on above: Performed By: #### M G, RENAL, URIC #### [facility] [address] [place] [address] Dr. Shayne Roldan Urea nitrogen [Mass/Vol] 10.0 mg/dL Normal 7.0-18.0 [facility] Comment on above: Performed By: #### M G, RENAL, URIC #### [facility] [address] [place] [address] Dr. Shayne Roldan UA RANDOM W/MICROSCOPICon BACTERIA SMALL Abnormal NONE SEEN [facility] Comment on above: Performed By: #### U AMIC #### [facility] [address] [place] [address] Dr. Shayne Roldan Bilirubin Ql (U) Negative Normal NEGATIVE The [facility] Comment on above: Performed By: #### U AMIC #### [facility] [address] [place] [address] Dr. Shayne Roldan CAST NONE SEEN Normal NONE SEEN [facility] Comment on above: Performed By: #### U AMIC #### [facility] [address] [place] [address] Dr. Shayne Roldan Clarity (U) CLEAR Normal CLEAR [facility] Comment on above: Performed By: #### U AMIC #### [facility] [address] [address] [address] Shayne Roldan Color (U) LT. YELLOW Normal YELLOW [facility] Comment on above: Performed By: #### U AMIC #### [facility] [address] [address] [address] Shayne Roldan Crystals LM Nom (Urine sed) NONE SEEN Normal NONE SEEN [facility] Comment on above: Performed By: #### U AMIC #### [facility] [address] [address] [address] Shayne Roldan Epithelial cells LM Ql (Urine sed) FEW Abnormal NONE SEEN /RARE [facility] Comment on above: Performed By: #### U AMIC #### [facility] [address] [place] [address] Dr. Shayne Roldan Glucose Ql (U) Negative Normal NEGATIVE [facility] Comment on above: Performed By: #### U AMIC #### [facility] [address] [address] [address] Shayne Roldan Hemoglobin Ql (U) Negative Normal NEGATIVE [facility] Comment on above: Performed By: #### U AMIC #### [facility] [address] [place] [address] Dr. Shayne Roldan Ketones Ql (U) Negative Normal NEGATIVE [facility] Comment on above: Performed By: #### U AMIC #### [facility] [address] [address] [address] Shayne Roldan LEUKOCYTES TRACE Abnormal NEGATIVE [facility] Comment on above: Performed By: #### U AMIC #### [facility] [address] [address] [address] Shayne Roldan MUCOUS NONE SEEN Normal NONE SEEN [facility] Comment on above: Performed By: #### U AMIC #### [facility] [address] [place] [address] Dr. Shayne Roldan Nitrite Ql (U) Negative Normal NEGATIVE [facility] Comment on above: Performed By: #### U AMIC #### [facility] [address] [place] [address] Dr. Shayne Roldan pH (U) 6.0 [pH] Normal 5-9 [facility] Comment on above: Performed By: #### U AMIC #### [facility] [address] [place] [address] Dr. Shayne Roldan RBC NONE SEEN Abnormal 0-2 [facility] Comment on above: Performed By: #### U AMIC #### [facility] [address] [place] [address] Dr. Shayne Roldan SPEC GRAVITY <=1.005 Abnormal 1.005-<=1.025 [facility] Comment on above: Performed By: #### U AMIC #### [facility] [address] [place] [address] Dr. Shayne Roldan UA PROTEIN Negative Normal NEGATIVE/ TRACE [facility] Comment on above: Performed By: #### U AMIC #### [facility] [address] [place] [address] Dr. Shayne Roldan Urobilinogen Qn (U) 0.2 {Rogelio'U}/dL Normal 0.2 - 1. 0 [facility] Comment on above: Performed By: #### U AMIC #### [facility] [address] [place] [address] Dr. Shayne Roldan WBC 5-10 Abnormal NONE SEEN [facility] Comment on above: Performed By: #### U AMIC #### [facility] [address] [place] [address] Dr. Shayne Roldan URIC ACID SERUMon 08-05-2022 Urate [Mass/Vol] 6.5 mg/dL Critically high 2.6-6.0 [facility] Comment on above: Performed By: #### M G, RENAL, URIC #### [facility] [address] [place] [address] Dr. Shayne Roldan URINE T PROTEIN CREAT RATIOo n 08-05-2022 Protein (U) [Mass/Vol] 4.8 mg/dL Normal <=12.0 [facility] Comment on above: Performed By: #### U RTPCR #### [facility] [address] [place] [address] Dr. Shayne Roldan UR PROT CREAT RAT 0.09 Normal [facility] Comment on above: Performed By: #### U RTPCR #### [facility] [address] [address] [address] Shayne Roldan URINE CREAT 52.65 mg/dL Normal 20.00-300.00 [facility] Comment on above: Performed By: #### U RTPCR #### [facility] [address] [address] [address] Shayne Roldan VITAMIN D 25 OHon 08-05-2022 VIT D 25-OH 38.9 ng/mL Normal [facility] Comment on above: Performed By: #### M G, RENAL, URIC #### [facility] [address] [place] [address] Dr. Shayne Roldan VIT D RANGES SEE BELOW Normal [facility] Comment on above: Result Comment: <20 ng/mL Vit D deficient 20 - <30 ng/mL Vit D insufficient 30 - 100 ng/mL Vit D sufficient >100 ng/mL Potential Toxicity Performed By: #### M G, RENAL, URIC #### [facility] [address] [place] [address] Dr. Shayne Roldan IMMUNOGLOBULINS IGA/IGM/IGG/ IGE QUANTITAon 07-12-2022 Immunoglobulin A, Qn, Serum 295 mg/dL Normal 87-352 [facility] Comment on above: Result Comment: Perf ormed at: CB Performed By: #### M G, RENAL, URIC #### [facility] [address] [place] [address] Dr. Shayne Roldan Immunoglobulin E, Total 32 IU/mL Normal 6-495 [facility] Comment on above: Result Comment: Perf ormed at: BN Performed By: #### M G, RENAL, URIC #### [facility] [address] [place] [address] Dr. Shayne Roldan Immunoglobulin G, Qn, Serum 729 mg/dL Normal 586-1602 [facility] Comment on above: Result Comment: Perf ormed at: CB Performed By: #### M G, RENAL, URIC #### [facility] [address] [place] [address] Dr. Shayne Roldan Immunoglobulin M, Qn, Serum 75 mg/dL Normal 26-217 [facility] Comment on above: Result Comment: Perf ormed at: CB Performed By: #### M G, RENAL, URIC #### [facility] [address] [place] [address] Dr. Shayne Roldan Abstracton 07-08-2022 Abstract [id number] Nell Champion Meng 1955 F Date Provider Department Center 07/08/2022 JOHANNA MEDINA [facility] Family History Problem Relation Age of Onset Heart failure Mother Heart disease Father Family Status - Relation Status Age at Mother Father Normal [facility] CBC AUTO DIFFon 07-05-2022 BASO # 0.1 103/ul Normal 0.0-0.1 [facility] Comment on above: Performed By: #### M G, RENAL, URIC #### [facility] [address] [place] [address] Dr. Shayne Roldan Basophils/100 WBC (Bld) 0.7 % Normal 0.2-2.0 [facility] Comment on above: Performed By: #### M G, RENAL, URIC #### [facility] [address] [place] [address] Dr. Shayne Roldan EO # 0.4 103/ul Normal 0.0-0.7 [facility] Comment on above: Performed By: #### M G, RENAL, URIC #### [facility] [address] [place] [address] Dr. Shayne Roldan Eosinophils/100 WBC (Bld) 4.4 % Normal 0.9-7.0 [facility] Comment on above: Performed By: #### M G, RENAL, URIC #### [facility] [address] [place] [address] Dr. Shayne Roldan Erythrocyte distribution width (RBC) [Ratio] 12.6 % Normal 11.0-15.0 [facility] Comment on above: Performed By: #### M G, RENAL, URIC #### [facility] [address] [place] [address] Dr. Shayne Roldan Hematocrit (Bld) [Volume fraction] 40.2 % Normal 36.0-48.0 [facility] Comment on above: Performed By: #### M G, RENAL, URIC #### [facility] [address] [place] [address] Dr. Shayne Roldan Hemoglobin (Bld) [Mass/Vol] 13.6 g/dL Normal 12.0-16.0 [facility] Comment on above: Performed By: #### M G, RENAL, URIC #### [facility] [address] [place] [address] Dr. Shayne Roldan IG # 0.07 10e3/ul Critically high 0.00-0.03 [facility] Comment on above: Performed By: #### M G, RENAL, URIC #### [facility] [address] [place] [address] Dr. Shayne Roldan IG % 0.8 % Critically high 0.0-0.5 [facility] Comment on above: Performed By: #### M G, RENAL, URIC #### [facility] [address] [place] [address] Dr. Shayne Roldan LYMPH # 2.3 103/ul Normal 1.2-3.8 [facility] Comment on above: Performed By: #### M G, RENAL, URIC #### [facility] [address] [place] [address] Dr. Shayne Roldan Lymphocytes/100 WBC (Bld) 24.7 % Normal 20.5-60.0 [facility] Comment on above: Performed By: #### M G, RENAL, URIC #### [facility] [address] [place] [address] Dr. Shayne Roldan MANUAL DIFF REQ NO Normal [facility] Comment on above: Performed By: #### M G, RENAL, URIC #### [facility] [address] [place] [address] Dr. Shayne Roldan MCH (RBC) [Entitic mass] 30.7 pg Normal 26.7-34.0 [facility] Comment on above: Performed By: #### M G, RENAL, URIC #### [facility] [address] [address] [address] Shayne Roldan MCHC (RBC) [Mass/Vol] 33.8 g/dL Normal 29.9-35.2 [facility] Comment on above: Performed By: #### M G, RENAL, URIC #### [facility] [address] [address] [address] Shayne Roldan MCV (RBC) [Entitic vol] 90.7 fL Normal 81.0-99.0 [facility] Comment on above: Performed By: #### M G, RENAL, URIC #### [facility] [address] [place] [address] Dr. Shayne Roldan MONO # 0.7 103/ul Normal 0.3-0.8 [facility] Comment on above: Performed By: #### M G, RENAL, URIC #### [facility] [address] [place] [address] Dr. Shayne Roldan Monocytes/100 WBC (Bld) 7.7 % Normal 1.7-12.0 [facility] Comment on above: Performed By: #### M G, RENAL, URIC #### [facility] [address] [place] [address] Dr. Shayne Roldan NEUT # 5.7 103/ul Normal 1.4-6.5 [facility] Comment on above: Performed By: #### M G, RENAL, URIC #### [facility] [address] [address] [address] Shayne Roldan Neutrophils/100 WBC (Bld) 61.7 % Normal 43.0-75.0 [facility] Comment on above: Performed By: #### M G, RENAL, URIC #### [facility] [address] [address] [address] Shayne Roldan Platelet mean volume (Bld) [Entitic vol] 8.8 fL Critically low 9.5-13.5 [facility] Comment on above: Performed By: #### M G, RENAL, URIC #### [facility] [address] [place] [address] Dr. Shayne Roldan PLT 279 103/ul Normal 150-450 [facility] Comment on above: Performed By: #### M G, RENAL, URIC #### [facility] [address] [place], [place] [address] Dr. Shayne Roldan RBC 4.43 106/ul Normal 4.20-5.40 [facility] Comment on above: Performed By: #### M G, RENAL, URIC #### [facility] [address] [place], [place] [address] Dr. Shayne Roldan WBC 9.1 103/ul Normal 4.0-11.0 [facility] Comment on above: Performed By: #### M G, RENAL, URIC #### [facility] [address] [address] [address] Shayne Roldan [facility]19 [facility]on SARS-CoV-2 (COVID-19) RNA KAYLEE+probe Ql (Unsp spec) Not detected Normal NOT DETECTED [facility] Comment on above: Result Comment: This test is not yet approved or cleared by the [place] FDA. When there are no FDA-approved or cleared tests available, and other criteria are met, FDA can make tests available under an emergency access mechanism called an Emergency Use Authorization (EUA). The EUA for this test is supported by the Student Officer of Health and Human Service's (HHS's) declaration [...] By: #### M G, RENAL, URIC #### [facility] [address] [place], [place] [address] Dr. Shayne Roldan XR CHEST 2 Von [...] NARDA LONDONO Date: 2022-06-08 19:58 Normal [facility] Covid-19 PCR ([facility])on SARS-CoV-2 (COVID-19) RNA KAYLEE+probe Ql (Unsp spec) Not detected Normal NOT DETECTED [facility] Comment on above: Result Comment: This test is not yet approved or cleared by the [place] FDA. When there are no FDA-approved or cleared tests available, and other criteria are met, FDA can make tests available under an emergency access mechanism called an Emergency Use Authorization (EUA). The EUA for this test is supported by the Student Officer of Health and Human Service's (HHS's) declaration [...] consistent with SARS-CoV-2. Performed By: #### [facility] #### [facility] [address] [place] [address] Dr. Shayne Roldan DEXA AXIALon 03-01-2022 DEXA AXIAL [facility] Department of Radiology [address] [place] [address] Patient Name: DIANA CHAMPION : [...] characteristics. Electronically signed: Luzma Fernandez. Transcribed by: [email or web address], User Resident: Electronically Signed by: LUZMA FERNANDEZ @ 03/02/2022 01:07 PM Normal [facility] SCOLIOSIS 2 [facility] 02-24-2022 SCOLIOSIS [address] [facility] Department of Radiology [address] [place] [id number] Patient Name: DIANA CHAMPION : 1955 Sex: F Age: Race: White Pt. Location: Patient Status: D Ordered Date: 02/24/2022 1:25:00 PM Completed Date: 02/24/2022 01:44 PM Requesting Provider: CINDA ANTONIO Attending Provider: Report Copy To: Signs & Symptoms: M43.10 Spondylolisthesis, site unspecified I10 History: Comments: Views (X-RAY, SCOLIOSIS): PA, Lateral evaluate Exam: SCOLIOSIS 2 [facility] Scoliosis. Worsening pain. Frontal and lateral thoracolumbar spine IMPRESSION: 1. Diffuse disc disease and facet arthritis. Right convex mid lumbar curvature measuring 16 degrees. Interbody fusion hardware lower lumbar spine. Electronically signed: Hugo Lynn. Transcribed by: [email or web address], User Resident: Electronically Signed by: HUGO LYNN @ 02/26/2022 11:07 AM Normal [facility] Comment on above: Order Comment: Views (X-RAY, SCOLIOSIS): PA, Lateral evaluate CT LUMBAR SPINE W CONTRASTon 01-24-2022 CT LUMBAR SPINE W CONTRAST [facility] Department of Radiology [address] [place] [id number] Patient Name: DIANA CHAMPION : 1955 [...] L1-2. Electronically signed: Gaurang Lawrence. Transcribed by: [email or web address], User Resident: Electronically Signed by: GAURANG LAWRENCE @ 01/26/2022 08:58 AM Normal [facility] Comment on above: Order Comment: , CT MYELOGRAM>PAPER WORK IN CHART LUMBAR MYELOGRAMon 2 LUMBAR MYELOGRAM [facility] Department of Radiology [address] [place] [phone] Patient Name: DIANA CHAMPION : 1955 Sex: F Age: Race: White Pt. Location: Patient Status: O Ordered Date: 01/09/2022 9:00:00 AM Completed Date: 01/24/2022 02:37 PM Requesting Provider: JOO LINN Attending Provider: JOO LINN Report Copy To: UNKNOWN, PHYSICIAN Signs & Symptoms: M54.16 Radiculopathy, lumbar region I10 History: Jessica Is patient on thinners? 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 Consent was obtained. Timeout: [place] protocol timeout verification performed. PROCEDURE: Estimated blood [...] report. Electronically signed: Greg Marlow. Transcribed by: [email or web address], User Resident: DEBBIE JI Electronically Signed by: GREG MARLOW @ 01/24/2022 04:07 PM I personally read this/these film(s) with this resident Normal [facility] Comment on above: Order Comment: , CT MYELOGRAM> PAPER WORK SCANNED IN CHART , CT MYELOGRAM> PAPER WORK SCANNED IN CHART , , , Ordering Provider - JOO LINN MD , HIP LEFT 1 OR 2 VWS WITH PEL VISon 01-06-2022 HIP LEFT 1 OR 2 VWS WITH PELVIS [facility] Department of Radiology [address] [place] [id number] Patient Name: DIANA CHAMPION : 1955 Sex: F Age: Race: White Pt. Location: Patient Status: D Ordered Date: 12/21/2021 10:45:00 AM Completed Date: 01/06/2022 01:24 PM Requesting Provider: JOO LINN Attending Provider: JOO LINN Report Copy To: Signs & Symptoms: Z96.642 Presence of left artificial hip joint I10 History: [place] Comments: Evaluate Exam: HIP LEFT 1 OR 2 VWS WITH PELVIS HIP LEFT 1 OR 2 VWS WITH PELVIS HISTORY: Hip replacement, follow-up. COMPARISON: None. IMPRESSION: 1. Redemonstrated left hip prosthesis without visible complication. 2. Advanced right hip arthritis without significant change with advanced joint space narrowing. Unchanged lumbosacral fusion hardware. Electronically signed: Joe Matthew. Transcribed by: [email or web address], User Resident: Electronically Signed by: JOE MATTHEW @ 01/09/2022 04:45 PM Normal [facility] Comment on above: Order Comment: Evalu ate Vital Signs Date Time Vital Sign Value Performing Clinician Facility 08-17-2023 09:20-0400 Body height 165.1 cm Herberth Joana Other [facility] Other 08-17-2023 09:20-0400 Body mass index (BMI) [Ratio] 38.1 kg/m2 Herberth Joana Other [facility] Other 08-17-2023 09:20-0400 Body temperature 98.8 [degF] Herberth Joana Other [facility] Other 08-17-2023 09:20-0400 Body weight 103.87 kg Herberth Joana Other [facility] Other 08-17-2023 09:20-0400 Diastolic blood pressure 85 mm[Hg] Herberth Joana Other [facility] Other 08-17-2023 09:20-0400 Respiratory rate 18 /min Herberth Joana Other [facility] Other 08-17-2023 09:20-0400 SaO2% (BldA) [Mass fraction] 94 % Herebrth Joana Other [facility] Other 08-17-2023 09:20-0400 Systolic blood pressure 151 mm[Hg] Herberth Joana Other [facility] Other 03-02-2023 10:00-0400 Body height 165.1 cm Herberth Joana Other [facility] Other 03-02-2023 10:00-0400 Body mass index (BMI) [Ratio] 37.29 kg/m2 Herberth Joana Other [facility] Other 03-02-2023 10:00-0400 Body temperature 98.9 [degF] Herberth Joana Other [facility] Other 03-02-2023 10:00-0400 Body weight 101.65 kg Herberth Joana Other [facility] Other 03-02-2023 10:00-0400 Diastolic blood pressure 76 mm[Hg] Herberth Joana Other [facility] Other 03-02-2023 10:00-0400 Respiratory rate 20 /min Herberth Joana Other [facility] Other 03-02-2023 10:00-0400 SaO2% (BldA) [Mass fraction] 96 % Herberth Joana Other [facility] Other 03-02-2023 10:00-0400 Systolic blood pressure 136 mm[Hg] Herberth Joana Other [facility] Other 12-08-2022 09:30-0500 Diastolic blood pressure 59 mm[Hg] MD Shaikh Ohara Work Phone: [facility] 12-08-2022 09:30-0500 Heart rate 55 /min MD Shaikh Ohara Work Phone: [facility] 12-08-2022 09:30-0500 Respiratory rate 16 /min MD Shaikh Ohara Work Phone: [facility] 12-08-2022 09:30-0500 SaO2% (BldA) [Mass fraction] 96 % MD Shaikh Ohara Work Phone: [facility] 12-08-2022 09:30-0500 Systolic blood pressure 112 mm[Hg] MD Shaikh Ohara Work Phone: [facility] 12-08-2022 06:54-0500 Body height 162.56 cm MD Shaikh Ohara Work Phone: [facility] 12-08-2022 06:54-0500 Body temperature 98.2 [degF] MD Shaikh Ohara Work Phone: [facility] 12-08-2022 06:54-0500 Body weight 104.32 kg MD Shaikh Ohara Work Phone: [facility] 08-09-2022 11:00-0400 Body height 165.1 cm Herberth Joana Other [facility] Other 08-09-2022 11:00-0400 Body mass index (BMI) [Ratio] 37.87 kg/m2 Herberth Joana Other [facility] Other 08-09-2022 11:00-0400 Body temperature 97.2 [degF] Herberth Joana Other [facility] Other 08-09-2022 11:00-0400 Body weight 103.24 kg Herberth Joana Other [facility] Other 08-09-2022 11:00-0400 Diastolic blood pressure 88 mm[Hg] Herberth Joana Other [facility] Other 08-09-2022 11:00-0400 Respiratory rate 20 /min Herberth Joana Other [facility] Other 08-09-2022 11:00-0400 SaO2% (BldA) [Mass fraction] 95 % Herberth Joana Other [facility] Other 08-09-2022 11:00-0400 Systolic blood pressure 133 mm[Hg] Herberth Joana Other [facility] Other 11-17-2021 10:40-0500 Body height 165.1 cm Herberth Joana Other [facility] Other 11-17-2021 10:40-0500 Body mass index (BMI) [Ratio] 37.97 kg/m2 Herberth Joana Other [facility] Other 11-17-2021 10:40-0500 Body temperature 97.8 [degF] Herberth Joana Other [facility] Other 11-17-2021 10:40-0500 Body weight 103.51 kg Herberth Joana Other [facility] Other 11-17-2021 10:40-0500 Diastolic blood pressure 70 mm[Hg] Herberth Joana Other [facility] Other 11-17-2021 10:40-0500 Respiratory rate 18 /min Herberth Joana Other [facility] Other 11-17-2021 10:40-0500 SaO2% (BldA) [Mass fraction] 94 % Herberth Joana Other [facility] Other 11-17-2021 10:40-0500 Systolic blood pressure 130 mm[Hg] Herberth Joana Other [facility] Other 08-30-2021 13:15-0400 Body height 165.1 cm Rena Ginty Other [facility] Other 08-30-2021 13:15-0400 Body mass index (BMI) [Ratio] 36.61 kg/m2 Rena Ginty Other [facility] Other 08-30-2021 13:15-0400 Body temperature 98.7 [degF] Rena Ginty Other [facility] Other 08-30-2021 13:15-0400 Body weight 99.79 kg Rena Ginty Other [facility] Other 08-30-2021 13:15-0400 SaO2% (BldA) [Mass fraction] 90 % Rena Ginty Other [facility] Other Encounters Encounter Date Encounter Type Care [...] 09-07-2023 End: 09-07-2023 ambulatory Herberth Joana Other [facility] Other Start: 09-07-2023 Telephone encounter Herberth Joana [facility] Start: 08-28-2023 End: 08-28-2023 ambulatory Herberth Joana Other [facility] Other Start: 08-28-2023 Telephone encounter Herberth Joana [facility] Start: 08-21-2023 End: 08-22-2023 ambulatory Jayshree Vargas MD Facility: [facility] Start: 08-17-2023 End: 08-17-2023 ambulatory Herberth Joana Other [facility] Other Start: 08-17-2023 Office outpatient visit 25 minutes Herberth Joana [facility] Start: 05-08-2023 End: 05-08-2023 ambulatory HETAL [facility] Start: 04-04-2023 End: 04-04-2023 ambulatory Dimitry LEV Facility:[facility] Start: 03-24-2023 End: 03-25-[address] STEPH GRANADOS Facility:[facility] Start: 03-23-2023 ambulatory JOO LINN [facility] Start: 03-02-2023 End: 03-02-2023 ambulatory Herberth Joana Other [facility] Other Start: 03-02-2023 Office outpatient visit 25 minutes Herberth Joana [facility] Start: 02-25-2023 End: 02-26-2023 ambulatory HERBERTH JOANA Facility:[facility] Start: 02-22-2023 End: 02-23-2023 ambulatory BO MCCLAIN . Facility:[facility] Start: 12-15-2022 End: 12-16-[address] JACK HALL . Facility:[facility] Start: 12-08-2022 End: 12-08-2022 ambulatory Shaikh Lev Facility:[facility] Start: 12-08-2022 End: 12-08-2022 Admission to same day surgery center MD Shaikh Ohara Work Phone: [facility] Work Phone: Start: 12-08-2022 End: 12-08-2022 ambulatory MD Shaikh Ohara Work Phone: [facility] Work Phone: Start: 11-11-2022 End: 11-11-[address] JACK HALL . Facility:[facility] Start: 11-09-2022 End: 11-09-2022 ambulatory Azkatherine Gonzalezs Other [facility] Other Start: 11-09-2022 Telephone encounter Azkatherine Ruelashous [facility] Start: 08-19-2022 End: 08-20-2022 ambulatory HERBERTH JOANA Facility: Start: 08-09-2022 End: 08-09-2022 ambulatory Herberth Joana Other [facility] Other Start: 08-09-2022 Office outpatient visit 10 minutes [facility] Nephrology Start: 08-09-2022 Telephone encounter Herberth Joana [facility] Start: 08-05-2022 Telephone encounter Herberth Joana [facility] Start: 08-05-2022 End: 08-06-2022 ambulatory HERBERTH JOANA [facility] Other Start: 07-08-2022 End: 07-08-2022 ambulatory Gato Domingo Other [facility] Other Start: 09-02-2022 Telephone encounter Gato leal [facility] Start: 07-05-2022 End: 07-06-2022 ambulatory SAUNDERS H FAJavonWAD Facility:[facility] Start: 06-08-2022 End: 06-09-2022 ambulatory SAUNDERS H FAWWAD Facility:[facility] Start: 06-07-2022 End: 06-07-2022 ambulatory SAUNDERS H FAWWAD Facility:[facility] Start: 01-24-2022 End: 01-25-2022 ambulatory PHYSICIAN UNKNOWN Facility:[facility] Start: 11-17-2021 End: 11-17-2021 ambulatory Herberth Joana Other [facility] Other Start: 11-17-2021 Office outpatient visit 15 minutes Herberth Joana [facility] Start: 08-30-2021 Office outpatient visit 15 minutes Rena Ginty [facility] Start: 09-11-2020 End: 09-11-2020 Chart abstracting Miguelito Buck Work Phone: Hematology/Oncology Start: 09-11-2020 End: 09-11-2020 [facility] encounter [facility] Start: 09-11-2020 Results Only External Provider Exter [facility] Start: 09-30-2019 End: 09-30-2019 Patient encounter procedure [facility] [place] Start: 07-07-2017 End: 07-07-2017 Admission to day surgery [facility] Start: 05-24-2004 Evaluation and management of inpatient [facility] [place] Start: 04-26-2004 Evaluation and management of inpatient [facility] [place] Procedures Date Procedure Procedure Detail Performing Clinician Start: 12-08-2022 Colonoscopy MD Shaikh Ohara Work Phone: Start: 09-11-2020 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 [employer] al Provider Start: 09-11-2020 EXTERNAL LAB External P rovider Start: 09-11-2020 EXTERNAL PROCEDURE Exte rnal Provider Start: 09-30-2019 Ultrasonography of b ilateral kidneys Steph Collier Plan of Treatment Date Care Activity Detail Author Start: 12-08-2022 [facility] Start: 07-07-2020 Influenza vaccination INFLUENZA (#1) [facility] Start: 2006 SHINGRIX VACCINE (1 of 2) SHINGRIX VACCINE (1 of 2) [facility] Start: 2006 Tuberculosis screening COLORECTAL CANCER SCREENING,SEE MODIFIER [facility] Start: 2001 DIABETES SCREEN DIABETES SCREEN [facility] Start: 2001 LIPID SCREEN LIPID SCREEN [facility] Start: 1996 Mammography MAMMOGRAM [facility] Start: 1986 HPV TESTING HPV TESTING [facility] Start: 1977 PAP TESTING PAP TESTING [facility] Start: 1975 Urine microalbumin profile DTAP,TDAP,TD (1 - Tdap) [facility] Start: 1974 HEPATITIS C SCREENING HEPATITIS C SCREENING [facility] Start: 1974 HIV SCREENING HIV SCREENING [facility] Patient Education Colon Polypect shahram Hemorrhoids (DC) Diverticulosis (DC) [facility] Work Phone: [facility] Immunizations Immunization Date Immunization Notes Care Provider Fa cility 07-18-2018 Depo-Medrol 40 mg Rena Gint y Other [facility] Other 01-31-2018 Depo-Medrol 40 mg Rena Gint y Other [facility] Other 08-09-2017 influenza, seasonal, injectable, preservative free Rena Ginty Other [facility] Other Payers Date Payer Category Payer Unknown 2022 Self-pay [id number] 2021 Medicare [id number] 2020 Medicaid [id number] 2019 Medicaid MEDICAID [facility] MEDICAID [id number] 2019-Present Medicaid [id number] 2016 Medicare MEDICARE MEDICAR E A AND B [id number] 2016-Present [place] [id number] 1959 Unknown [id number] 1956 Unknown [id number] 2.16.840.1.332732.3.579.2.647 1956 Unknown [id number] 2.16.840.1.628406.3.579.2.593 1956 Unknown [id number] 2.16.840.1.840713.3.579.2.593 1956 Unknown [id number] 2.16.840.1.910907.3.579.2.593 1956 Unknown [id number] 2.16.840.1.244426.3.579.2.593 1956 Unknown [id number] 2.16.840.1.184612.3.579.2.593 1956 Unknown [id number] 2.16.840.1.975131.3.579.2.593 1956 Unknown [id number] 2.16.840.1.119177.3.579.2.593 1956 Unknown [id number] 2.16.840.1.407601.3.579.2.593 1956 Unknown [id number] 2.16.840.1.473055.3.579.2.593 1956 Unknown [id number] 2.16.840.1.838184.3.579.2.593 1956 Unknown [id number] 2.16.840.1.196513.3.579.2.593 1956 Unknown [id number] 2.16.840.1.934696.3.579.2.196 1956 Unknown [id number] 2.16.840.1.321044.3.579.2.196 1956 Unknown [id number] 2.16.840.1.329358.3.579.2.196 1956 Unknown [id number] 2.16.840.1.741855.3.579.2.196 1956 Unknown [id number] 2.16.840.1.952947.3.579.2.1259 1956 Unknown [id number] 2.16.840.1.414516.3.579.2.1259 1956 Unknown [id number] 2.16.840.1.675287.3.579.2.1259 1956 Unknown [id number] 2.16.840.1.918268.3.579.2.1259 1956 Unknown [id number] 2.16.840.1.378729.3.579.2.1259 Medicare [id number] Unknown HCAP/HFA/FAP Active [id number] Unknown [id number] 2.16.840.1.397657.3.579.2.531 Social History Date Type Detail Facility Tobacco smoking stat us [facility] Unknown if ever smoked [facility] Start: 1955 Sex Assigned At Female F [facility] Start: 09-11-2020 End: 12-08-2022 Tobacco smoking status NHIS Never smoker [facility] Start: 09-11-2020 Tobacco use and exposure Never used [facility] Start: 09-11-2020 Alcohol intake Lifetime non-d my (finding) [facility] Start: 09-11-2020 History SDOH Alcohol Frequency 1 [facility] Sex Assigned At Not on file [facility] Sex Assigned At Sex Assigned At Bir th [facility] Other Goals Date Patient Goal Desired Activity /State Clinical Notes 08-30-2021 to 09-07-2023 Note Date & Type Note Facility 09-07-2023 Evaluation note Encounter Date Diagnosis Assessment Notes Sep, Hypomagnesemia (ICD-10 - E83.42) [facility] Other 10-23-2023 Evaluation note* Encounter Date Diagnosis Assessment Notes Treatment Notes Treatment Clinical Notes Aug, Nico lopez w cr kid I-IV (ICD-10 - I12.9) [facility] Other 10-12-2023 Evaluation note* Encounter Date Diagnosis [...] PPI induced GI losses. Continue oral Magnesium [facility] Other [id number] [facility] Chief Complaint: Patient here for 1 year follow up CAD and hypertension. She was recently discharged from [facility] for Covid-19. She says hydrochlorothiazide was stopped [...] breath since then. She has seen her dust puller. Her chest pain is noncardiac. She has no other cardiac complaints. Cardiology ROS: Review of Systems Cardiovascular: Positive for chest pain and dyspnea on exertion. Respiratory: Positive for wheezing. Musculoskeletal: Positive for arthritis, back pain, joint pain and myalgias. Neurological: Positive for light-headedness. All other systems reviewed and are negative. Past Medical History She has a past medical history of Cancer (CMS/[facility]ER[facility]) and Hypertension. Surgical History She has a [...] 325 mg by mouth., Disp: , Rfl: uhbeteoaglc-umrwmknth-xzrnepsm 100-62.5-25 mcg blister with device, , Disp: [...] CTAB, no increased eff (more content not included)...[facility]05-19-2023 NotePROCEDURE: XR HIP RT 2 3V W PELVIS HISTORY: Pain in right hip joint , chronic COMPARISON: XR L-spine 02/26/2019, XR left hip with pelvis 03/11/2017 FINDINGS: BONES:Complete loss of the right hip joint space with ansn-xj-ekua articulation, subchondral sclerosis and cysts, and large periarticular degenerative osteophytes. No fracture or dislocation. Left hip replacement. Mechanical fusion of L5-S1 and moderate dextroscoliosis of lumbar spine. SOFT TISSUES:No visible soft tissue swelling. EFFUSION:None visible. OTHER: Negative. IMPRESSION: 1. Marked degenerative joint disease of the right hip; progressed since prior study. 2. Stable surgical changes. 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 [...] may be an additional personal documentation from me.[facility]04-27-2023 Evaluation note* Encounter Date Diagnosis Assessment [...] PPI induced GI losses. Continue oral Magnesium [facility] Encounter Date Diagnosis Assessment Notes Treatment Notes Treatment Clinical Notes Nov, Hypokalemia (ICD-10 - E87.6) Nov, Hypomagnesemia (ICD-10 - E83.42) [facility] Other 10-04-2022 Evaluation note* Encounter Date Diagnosis [...] office does not accept her new insurance. [facility] Other 09-02-2022 Evaluation note* Encounter Date Diagnosis Assessment Notes Treatment Notes Treatment Clinical Notes Jul, History of colon cancer (ICD-10 - Z85.038) [facility] Other 01-12-2022 Evaluation note* Encounter Date Diagnosis [...] potassium wasting. I have prescribed oral potassium. [facility] Other 10-25-2021 Evaluation note* Encounter Date Diagnosis [...] given in writting by [facility] document [facility] Other Evaluation noteNo InformationNort geolad Other Evaluation note* Diagnosis Onset Date Resolution Status History of colon cancer [facility] Work Phone: [facility] general Narrative - Reported* Type Description Date [...] IN 08/2019 Hospitalization History HIP REVISION 03/2020 [facility] Other [facility] general Narrative - Reported* Type Description Date [...] Hospitalization History COVID X 2 WEEKS 04/2023 [facility] Other Hospital Discharge instructions Additional Instructions DISCHARGE [...] if you have any problems. -Office number [phone] Work Phone: Advance Directives No Advanced [...] any alcohol or drug abuse patient.[facility] the event this information is protected by the Federal Confidentiality of Alcohol and Drug Abuse Patient Records regulations: The Federal rules restrict any use of the information to criminally investigate or prosecute any alcohol or drug abuse patient.[facility] the event this information is protected by the Federal Confidentiality of Alcohol and Drug Abuse Patient Records regulations: The Federal rules restrict any use of the information to criminally investigate or prosecute any alcohol or drug abuse patient.[facility] Hospital[facility] the event this information is protected by the Federal Confidentiality of Alcohol and Drug Abuse Patient Records regulations: The Federal rules restrict any use of the information to criminally investigate or prosecute any alcohol or drug abuse patient.[facility] INFORMATION SOURCE (unrecogn ized section and content) DATE CREATED AUTHOR 03/03/2022 [facility] DATE CREATED AUTHOR AUTHOR'S ORGANIZ ATION 04/17/2023 [facility] DATE CREATED AUTHOR AUTHOR'S ORGANIZ ATION 05/08/2023 [facility] DATE CREATED AUTHOR AUTHOR'S ORGANIZ ATION 06/07/2023 [facility] DATE CREATED AUTHOR AUTHOR'S ORGANIZ ATION 12/24/2023 [facility] DATE CREATED AUTHOR AUTHOR'S ORGANIZ ATION 01/26/2024 [facility] EPIC REASON FOR VISIT (unrecogniz ed [...] BE BASED ON THE PRIMARY CLINICAL RECORDS. [facility] [employer] [facility]. provides no warranty or guarantee of the accuracy or completeness of information in this document.
== END 2024-02-13 10:13 | disposition home or self-care (01) ==
LOC: MRI 10:12
PROVIDERS: PCP Internal Medicine; Visit Provider Internal Medicine
DX: M54.50 Low back pain, unspecified (principal); G89.29 Other chronic pain; M51.36 Other intervertebral disc degeneration, lumbar region
CPT/HCPCS: 72148

== ENCOUNTER 2024-02-19 08:10 | Day surgery (SDC) | payer OTHER, SELFPAY ==
--- OUTSIDE RECORDS SUMMARY | 2024-02-19 08:29 | XMS_ITS | CCD ---
Author Organization [facility] Care Team Providers Care Fundraising Officer Name Role Phone Steph Collier Attending Provider [...] e FAWWAD, SAUNDERS H Primary Care Unavailable LANSING, DR BRITTANY Elizondo Consulting Unavailable ZIEBBETH, DR [...] Andrius Vricardo Attending Unavailable Giedraitis , Andrius Vytjulito Attending Unavailable Giedraitis , Andrius Vricardo Attending Unavailable FAWWAD, SAUNDERS Attending Unavailable FAWWAD, SAUNDERS Attending Unavailable FAWWAD, SAUNDERS Attending Unavailable FAWWAD, SAUNDERS Attending Unavailable ROSHNI LEDESMA Attending Unavailable FAWWAD, SAUNDERS Attending Unavailable Unavailable Unavailable Unavailable Allergies Allergy Classification Reported Allergen(s) Allergy Type Date of Onset Reaction(s) Facility (3 sources) fentaNYL; Translations: [fentanyl] Drug Allergy 07-07-20 17 Hallucinating [facility] (2 sources) linezolid; Translations: [LINEZOLID] Drug Allergy 03-17-20 20 [facility] (20 sources) Vancomycin; Translations: [VANCOMYCIN] Drug Allergy 03-17-20 20 Unknown [facility] (11 sources) DENIES METAL SENSITITIVITY Propensity to adverse reactions Unknown VtagO Other Medications Current Medications Medication Drug Class(es) [...] Oral Bedtime July 07, 2017 10:21am famotidine ([facility] ID) 20 mg tablet Take 20 mg [...] each nostril Nasally Once a day Active Ihzlaoxelvv-Rhpxlxjnv-Ze lanter (1 source) Star t: 02-0 2-20 23 Uvuexltiiok-Svhcpyykl-P ilanter (Trelegy Ellipta) 200-62.5-25 mcg blister with [...] 1 puff(s) by inhalation twice daily Ipratropium [place] Active 2 PUFF Inhalation Twice daily July [...] 2017 10:21am take 1 capsule by mo [facility] every twelve hours Omeprazole [...] Active Start: 08-05-2022 [facility] Potassium Chloride ER [...] Interpretation Reference Range Facility Follow-Upon 05-08-2023 Follow-Up [id number] Nell Champion 1955 F Date Provider Department Center 05/08/2023 HETAL MERLOS CARD [facility] Baker Family History Problem Relation Age of Onset Heart failure Mother Heart disease Father Family Status - Relation Status Age at Mother Father Level of Service:77775 MT OFFICE/OUTPATIENT ESTABLISHED LOW MDM 20-29 MIN [facility] 3605-03-2023 36 PATIENT CALLED TO CANCEL SURGERY FOR July D/T HER LUNG DISEASE. WILL CALL TO RESCHEDULE WHEN FULLY HEALED FROM LUNGS AND CLEARED//[facility] 04-19-2023 36 FYI CALLED PATIENT T O F/U ON MEDICAL AND PULMONARY CLEARANCES FOR R ELZA ON 05/19 AND PRE-OP RIYA'T 04/27 WITH US AND PATIENT IS CURRENTLY INPATIENT SINCE LAST WEEK D/T COVID AND PULMONARY ISSUES, SHE WILL CALL US ON 04/25 WITH PROGRESS, PLEASE ADVISE IF WE SHOULD CANCEL SURGERY FOR NOW..THANKS//[facility] SYMPTOMATIC COVID-19 ANTIGEN on 04-04-2023 EUA Statement SEE BELOW Normal [facility] Comment on above: Result Comment: This test [...] sooner. Performed By: #### C VDAGS #### [facility] [address] [place] [address] Dr. Shayne Roldan SARS-CoV-2 (COVID-19) RNA KAYLEE+probe Ql (Unsp spec) Positive Abnormal NEGATIVE [facility] Comment on above: Performed By: #### C VDAGS #### [facility] [address] [place] [address] Dr. Shayne Roldan XR LSPINE 2_3 VIEWSon [...] STEPH GRANADOS Date: 2023-03-24 12:52 Normal [facility] PTH INTACTon 02-27-2023 PTH, Intact 87 pg/mL Critically high 15-65 [facility] Comment on above: Performed By: #### P THINT #### [facility] [address] [place] [address] Dr. Shayne Roldan HEMOGRAM AND PLATELon 2022 Hematocrit (Bld) [Volume fraction] 44.4 % Normal 36.0-48.0 [facility] Comment on above: Performed By: #### H H #### [facility] [address] [place] [address] Dr. Shayne Roldan Hemoglobin (Bld) [Mass/Vol] 14.5 g/dL Normal 12.0-16.0 [facility] Comment on above: Performed By: #### H H #### [facility] [address] [place] [address] Dr. Shayne Roldan MCH (RBC) [Entitic mass] 30.3 pg Normal 26.7-34.0 [facility] Comment on above: Performed By: #### H H #### [facility] [address] [place] [address] Dr. Shayne Roldan MCHC (RBC) [Mass/Vol] 32.7 g/dL Normal 29.9-35.2 [facility] Comment on above: Performed By: #### H H #### [facility] [address] [place] [address] Dr. Shayne Roldan MCV (RBC) [Entitic vol] 92.9 fL Normal 81.0-99.0 [facility] Comment on above: Performed By: #### H H #### [facility] [address] [place] [address] Dr. Shayne Roldan PLT 367 103/ul Normal 150-450 [facility] Comment on above: Performed By: #### H H #### [facility] [address] [place] [address] Dr. Shayne Roldan RBC 4.78 106/ul Normal 4.20-5.40 [facility] Comment on above: Performed By: #### H H #### [facility] [address] [place] [address] Dr. Shayne Roldan WBC 9.9 103/ul Normal 4.0-11.0 [facility] Comment on above: Performed By: #### H H #### [facility] [address] [place] [address] Dr. Shayne Roldan MAGNESIUMon 02-25-2023 Magnesium [Mass/Vol] 1.6 mg/dL Critically low 1.8-2.4 [facility] Comment on above: Performed By: #### M G, RENAL, URIC #### [facility] [address] [place] [address] Dr. Shayne Roldan RENAL FUNCTION PANELon 02-25 Albumin [Mass/Vol] 3.4 g/dL Normal 3.4-5.0 [facility] Comment on above: Performed By: #### M G, RENAL, URIC #### [facility] [address] [place] [address] Dr. Shayne Roldan Calcium [Mass/Vol] 8.7 mg/dL Normal 8.5-10.1 [facility] Comment on above: Performed By: #### M G, RENAL, URIC #### [facility] [address] [address] [address] Shayne Roldan Chloride [Moles/Vol] 104 mmol/L Normal 98-107 [facility] Comment on above: Performed By: #### M G, RENAL, URIC #### [facility] [address] [address] [address] Shayne Roldan CO2 [Moles/Vol] 25.9 mmol/L Normal 21.0-32.0 [facility] Comment on above: Performed By: #### M G, RENAL, URIC #### [facility] [address] [address] [address] Shayne Roldan Creatinine [Mass/Vol] 1.19 mg/dL Critically high 0.55-1.02 [facility] Comment on above: Performed By: #### M G, RENAL, URIC #### [facility] [address] [address] [address] Shayne Roldan EGFR-AF MALAGASY 55 mL/min/1.73m2 Critically low >=60 [facility] Comment on above: Performed By: #### M G, RENAL, URIC #### [facility] [address] [address] [address] Shayne Roldan EGFR-NON AF MALAGASY 45 mL/min/1.73m2 Critically low >=60 [facility] Comment on above: Performed By: #### M G, RENAL, URIC #### [facility] [address] [address] [address] Shayne Roldan Glucose [Mass/Vol] 193 mg/dL Critically high 74-106 [facility] Comment on above: Performed By: #### M G, RENAL, URIC #### [facility] [address] [address] [address] Shayne Roldan Phosphate [Mass/Vol] 3.2 mg/dL Normal 2.6-4.7 [facility] Comment on above: Performed By: #### M G, RENAL, URIC #### [facility] [address] [address] [address] Shayne Roldan Potassium [Moles/Vol] 3.9 mmol/L Normal 3.5-5.1 [facility] Comment on above: Performed By: #### M G, RENAL, URIC #### [facility] [address] [place] [address] Dr. Shayne Roldan Sodium [Moles/Vol] 140 mmol/L Normal 136-145 [facility] Comment on above: Performed By: #### M G, RENAL, URIC #### [facility] [address] [place] [address] Dr. Shayne Roldan Urea nitrogen [Mass/Vol] 17.0 mg/dL Normal 7.0-18.0 [facility] Comment on above: Performed By: #### M G, RENAL, URIC #### [facility] [address] [place] [address] Dr. Shayne Roldan UA RANDOM W/MICROSCOPICon BACTERIA TRACE Abnormal NONE SEEN [facility] Comment on above: Performed By: #### M G, RENAL, URIC #### [facility] [address] [place] [address] Dr. Shayne Roldan Bilirubin Ql (U) Negative Normal NEGATIVE [facility] Comment on above: Performed By: #### M G, RENAL, URIC #### [facility] [address] [place] [address] Dr. Shayne Roldan CAST NONE SEEN Normal NONE SEEN [facility] Comment on above: Performed By: #### M G, RENAL, URIC #### [facility] [address] [place] [address] Dr. Shayne Roldan Clarity (U) CLEAR Normal CLEAR [facility] Comment on above: Performed By: #### M G, RENAL, URIC #### [facility] [address] [place] [address] Dr. Shayne Roldan Color (U) LT. YELLOW Normal YELLOW [facility] Comment on above: Performed By: #### M G, RENAL, URIC #### [facility] [address] [place] [address] Dr. Shayne Roldan Crystals LM Nom (Urine sed) NONE SEEN Normal NONE SEEN [facility] Comment on above: Performed By: #### M G, RENAL, URIC #### [facility] [address] [address] [address] Shayne Roldan Epithelial cells LM Ql (Urine sed) RARE Normal NONE SEEN /RARE [facility] Comment on above: Performed By: #### M G, RENAL, URIC #### [facility] [address] [address] [address] Shayne Roldan Glucose Ql (U) Negative Normal NEGATIVE [facility] Comment on above: Performed By: #### M G, RENAL, URIC #### [facility] [address] [address] [address] Shayne Roldan Hemoglobin Ql (U) Negative Normal NEGATIVE [facility] [place] [facility] Comment on above: Performed By: #### M G, RENAL, URIC #### [facility] [address] [address] [address] Shayne Roldan Ketones Ql (U) Negative Normal NEGATIVE [facility] Comment on above: Performed By: #### M G, RENAL, URIC #### [facility] [address] [address] [address] Shayne Roldan LEUKOCYTES Negative Normal NEGATIVE [facility] Comment on above: Performed By: #### M G, RENAL, URIC #### [facility] [address] [address] [address] Shayne Roldan MUCOUS NONE SEEN Normal NONE SEEN [facility] Comment on above: Performed By: #### M G, RENAL, URIC #### [facility] [address] [address] [address] Shayne Roldan Nitrite Ql (U) Negative Normal NEGATIVE [facility] Comment on above: Performed By: #### M G, RENAL, URIC #### [facility] [address] [address] [address] Shayne Roldan pH (U) 5.0 [pH] Normal 5-9 [facility] Comment on above: Performed By: #### M G, RENAL, URIC #### [facility] [address] [address] [address] Shayne Roldan RBC 0-2 Normal 0-2 [facility] Comment on above: Performed By: #### M G, RENAL, URIC #### [facility] [address] [address] [address] Shayne Roldan SPEC GRAVITY 1.025 Normal 1.005-<=1.025 [facility] Comment on above: Performed By: #### M G, RENAL, URIC #### [facility] [address] [place] [address] Dr. Shayne Roldan UA PROTEIN Negative Normal NEGATIVE/ TRACE [facility] Comment on above: Performed By: #### M G, RENAL, URIC #### [facility] [address] [address] [address] Shayne Roldan Urobilinogen Qn (U) 0.2 {Rogelio'U}/dL Normal 0.2 - 1. 0 [facility] Comment on above: Performed By: #### M G, RENAL, URIC #### [facility] [address] [place] [address] Dr. Shayne Roldan WBC 0-2 Abnormal NONE SEEN [facility] Comment on above: Performed By: #### M G, RENAL, URIC #### [facility] [address] [place] [address] Dr. Shayne Roldan URIC ACID SERUMon 02-25-2023 Urate [Mass/Vol] 6.1 mg/dL Critically high 2.6-6.0 [facility] Comment on above: Performed By: #### M G, RENAL, URIC #### [facility] [address] [place] [address] Dr. Shayne Roldan URINE T PROTEIN CREAT RATIOo n 02-25-2023 Protein (U) [Mass/Vol] 13.0 mg/dL Critically high <=12.0 [facility] Comment on above: Performed By: #### M G, RENAL, URIC #### [facility] [address] [place] [address] Dr. Shayne Roldan UR PROT CREAT RAT 0.16 Normal [facility] [place] [facility] Comment on above: Performed By: #### M G, RENAL, URIC #### [facility] [address] [place] [address] Dr. Shayne Roldan URINE CREAT 83.60 mg/dL Normal 20.00-300.00 [facility] Comment on above: Performed By: #### M G, RENAL, URIC #### [facility] [address] [place], [place] [address] Dr. Shayne Roldan VITAMIN D 25 OHon 02-25-2023 VIT D 25-OH 41.6 ng/mL Normal [facility] Comment on above: Performed By: #### M G, RENAL, URIC #### [facility] [address] [place], [place] [address] Dr. Shayne Roldan VIT D RANGES SEE BELOW Normal [facility] Comment on above: Result Comment: <20 ng/mL Vit D deficient 20 - <30 ng/mL Vit D insufficient 30 - 100 ng/mL Vit D sufficient >100 ng/mL Potential Toxicity Performed By: #### M G, RENAL, URIC #### [facility] [address] [place], [place] [address] Dr. Shayne Roldan XR CHEST 2 Von [...] BRITTANY GALDAMEZ Date: 2023-02-22 16:15 Normal [facility] MAMM SCREEN 3D PRATEEK CADon 12-15-2022 MAMM SCREEN 3D PRATEEK CAD Patient: DIANA CHAMPION Exam Date: 12/15/2022 : 1955 Gender:F Ordering : DR JACK HALL . Admission #: [id number] Family : Order #: [id number] CLICK HERE TO VIEW EXAM RADIOLOGY REPORT PROCEDURE: MAMMOGRAM SCREENING 3D BILATERAL CAD COMPARISON: MAMM SCREEN 3D PRATEEK CAD, 11/26/2021. INDICATIONS: Calculator Name NCI Breast Cancer Risk Assessment Tool 5 Year Breast Cancer Risk 1.20% Lifetime Breast Cancer Risk 4.40% Personal Breast Cancer No Personal Ovarian Cancer No Treatments Excision, radiation, chemotherapy Family Cancers None LOCATION: [facility] BREAST COMPOSITION: Almost entirely fatty. [...] Walters MD on 12/15/2022 at 10:51 Normal [facility] XR DEXA BONE DENSITYon 12-15 XR [...] by: STEPH GRANADOS Date: 2022-12-15 09:50 Normal [facility] Fran 12-08-2022 L - -------- Specimen: [id number] Received: 12/08/22 Status: CELIA [facility] Num: [id number] Spec Type: Surgical Subm Dr: Gato Domingo MD Tissues: A Colon Biopsy (DESC COL POLYP) Procedures: HE/2, Gross/Micro L4 -------- Age/ Patient Sex Location Account Attending Physician -------- Diana Champion 67/F [id number] Gato Domingo MD -------- SPEC NUM: [id number] RECD: 12/08/22 STATUS: CELIA JIMENESSudeep NUM: [id number] KENDRA: 12/08/22 [facility] DR: Gato Domingo MD ENTERED: 12/08/[address] [facility] [address]: KHRIS TYPE: Surgical DEPT: S ENTERED BY: [id number] RECV BY: [id number] ORDERED: HE/2, Gross/Micro L4 ORDERED: HE/2, Gross/Micro [...] support the above pathologic diagnosis. CPT Codes 55714 -------- -------- Specimen: [id number] Received: 12/08/22 Status: CELIA Kay Num: [id number] Spec Type: Surgical Subm Dr: Gato Domingo MD Tissues: A Colon Biopsy (DESC COL POLYP) Procedures: HE/Evonne, Gross/Micro L4 -------- Patient: ChampionDiana [id number] (Continued) -------- Signed (signature on file) Eunice Rosa MD 12/09/22 1053 [facility] PAP ACOG PANEL 2: 30 to 65on 11-16-2022 . . Normal [facility] Comment on above: Performed By: #### [id number] #### [facility] [address] [address] [address] Shayne Roldan Age Gdln ACOG Testing Comment Normal [facility] Comment on above: Result Comment: <21 or >65 or no age provided Performed By: #### [id number] #### [facility] [address] [address] [address] Shayne Roldan DIAGNOSIS: Comment [facility] Comment on above: Result Comment: NEGA TIVE FOR INTRAEPITHELIAL LESION OR MALIGNANCY. Performed By: #### [id number] #### [facility] [address] [address] [address] Shayne Roldan Methodology: Comment [facility] Comment on above: Result Comment: This liquid based ThinPrep(R) pap test was screened with the use of an image guided system. Performed By: #### [id number] #### [facility] [address] [address] [address] Shayne Roldan Note: Comment [facility] Comment on above: Result Comment: The Pap smear is a screening test designed to aid in the detection of premalignant and malignant conditions of the uterine cervix. It is not a diagnostic procedure and should not be used as the sole means of detecting cervical cancer. Both false-positive and false-negative reports do occur. . Performed By: #### [id number] #### [facility] [address] [address] [address] Shayne Roldan Performed by: Comment Normal [facility] Comment on above: Result Comment: Onur Aguilar Blood [facility] Calendar Control Clerk (ASCP) Performed By: #### [id number] #### [facility] [address] [address] [address] Shayne Roldan Specimen adequacy: Comment Normal [facility] Comment on above: Result Comment: Sati sfactory for evaluation. Endocervical and/or squamous metaplastic cells (endocervical component) are present. Performed By: #### [id number] #### [facility] [address] [address] [address] Shayne Roldan RENAL FUNCTION PANELon 08-19 Albumin [Mass/Vol] 3.4 g/dL Normal 3.4-5.0 [facility] Comment on above: Performed By: #### M G, RENAL, URIC #### [facility] [address] [place] [address] Dr. Shayne Roldan Calcium [Mass/Vol] 8.4 mg/dL Critically low 8.5-10.1 [facility] Comment on above: Performed By: #### M G, RENAL, URIC #### [facility] [address] [place] [address] Dr. Shayne Roldan Chloride [Moles/Vol] 103 mmol/L Normal 98-107 [facility] Comment on above: Performed By: #### M G, RENAL, URIC #### [facility] [address] [place] [address] Dr. Shayne Rodlan CO2 [Moles/Vol] 27.8 mmol/L Normal 21.0-32.0 [facility] Comment on above: Performed By: #### M G, RENAL, URIC #### [facility] [address] [place] [address] Dr. Shayne Roldan Creatinine [Mass/Vol] 1.02 mg/dL Normal 0.55-1.02 [facility] Comment on above: Performed By: #### M G, RENAL, URIC #### [facility] [address] [place] [address] Dr. Shayne Roldan EGFR-AF MALAGASY >60 Normal >=60 [facility] Comment on above: Performed By: #### M G, RENAL, URIC #### [facility] [address] [place] [address] Dr. Shayne Roldan EGFR-NON AF MALAGASY 54 mL/min/1.73m2 Critically low >=60 [facility] Comment on above: Performed By: #### M G, RENAL, URIC #### [facility] [address] [address] [address] Shayne Roldan Glucose [Mass/Vol] 110 mg/dL Critically high 74-106 T [facility] Comment on above: Performed By: #### M G, RENAL, URIC #### [facility] [address] [place] [address] Dr. Shayne Roldan Phosphate [Mass/Vol] 2.3 mg/dL Critically low 2.6-4.7 [facility] Comment on above: Performed By: #### M G, RENAL, URIC #### [facility] [address] [place] [address] Dr. Shayne Roldan Potassium [Moles/Vol] 3.2 mmol/L Critically low 3.5-5.1 [facility] Comment on above: Performed By: #### M G, RENAL, URIC #### [facility] [address] [place] [address] Dr. Shayne Roldan Sodium [Moles/Vol] 138 mmol/L Normal 136-145 [facility] Comment on above: Performed By: #### M G, RENAL, URIC #### [facility] [address] [place] [address] Dr. Shayne Roldan Urea nitrogen [Mass/Vol] 14.0 mg/dL Normal 7.0-18.0 [facility] Comment on above: Performed By: #### M G, RENAL, URIC #### [facility] [address] [place] [address] Dr. Shayne Roldan PTH INTACTon 08-06-2022 PTH, Intact 40 pg/mL Normal 15-65 [facility] Comment on above: Performed By: #### M G, RENAL, URIC #### [facility] [address] [place] [address] Dr. Shayne Roldan HEMOGRAM AND PLATELon 2021 Hematocrit (Bld) [Volume fraction] 39.8 % Normal 36.0-48.0 [facility] Comment on above: Performed By: #### M G, RENAL, URIC #### [facility] [address] [place] [address] Dr. Shayne Roldan Hemoglobin (Bld) [Mass/Vol] 13.4 g/dL Normal 12.0-16.0 [facility] Comment on above: Performed By: #### M G, RENAL, URIC #### [facility] [address] [place] [address] Dr. Shayne Roldan MCH (RBC) [Entitic mass] 30.5 pg Normal 26.7-34.0 [facility] Comment on above: Performed By: #### M G, RENAL, URIC #### [facility] [address] [place] [address] Dr. Shayne Roldan MCHC (RBC) [Mass/Vol] 33.7 g/dL Normal 29.9-35.2 [facility] Comment on above: Performed By: #### M Poncho, RENAL, URIC #### [facility] [address] [place] [address] Dr. Shayne Roldan MCV (RBC) [Entitic vol] 90.5 fL Normal 81.0-99.0 [facility] Comment on above: Performed By: #### M G, RENAL, URIC #### [facility] [address] [place] [address] Dr. Shayne Roldan PLT 299 103/ul Normal 150-450 [facility] Comment on above: Performed By: #### M Poncho, RENAL, URIC #### [facility] [address] [place] [address] Dr. Shayne Roldan RBC 4.40 106/ul Normal 4.20-5.40 [facility] Comment on above: Performed By: #### M G, RENAL, URIC #### [facility] [address] [place] [address] Dr. Shayne Roldan WBC 8.8 103/ul Normal 4.0-11.0 [facility] Comment on above: Performed By: #### M G, RENAL, URIC #### [facility] [address] [place] [address] Dr. Shayne Roldan MAGNESIUMon 08-05-2022 Magnesium [Mass/Vol] 1.5 mg/dL Critically low 1.8-2.4 [facility] Comment on above: Performed By: #### M G, RENAL, URIC #### [facility] [facility] [address] [address] [address] Shayne Roldan RENAL FUNCTION PANELon 08-05 Albumin [Mass/Vol] 3.5 g/dL Normal 3.4-5.0 [facility] Comment on above: Performed By: #### M G, RENAL, URIC #### [facility] [address] [address] [address] Shayne Roldan Calcium [Mass/Vol] 8.4 mg/dL Critically low 8.5-10.1 [facility] Comment on above: Performed By: #### M G, RENAL, URIC #### [facility] [address] [address] [address] Shayne Roldan Chloride [Moles/Vol] 101 mmol/L Normal 98-107 [facility] Comment on above: Performed By: #### M G, RENAL, URIC #### [facility] [address] [place] [address] Dr. Shayne Roldan CO2 [Moles/Vol] 29.5 mmol/L Normal 21.0-32.0 [facility] Comment on above: Performed By: #### M G, RENAL, URIC #### [facility] [address] [place] [address] Dr. Shayne Roldan Creatinine [Mass/Vol] 1.04 mg/dL Critically high 0.55-1.02 [facility] Comment on above: Performed By: #### M G, RENAL, URIC #### [facility] [address] [address] [address] Shayne Roldan EGFR-AF MALAGASY >60 Normal >=60 [facility] Comment on above: Performed By: #### M G, RENAL, URIC #### [facility] [address] [address] [address] Shayne Roldan EGFR-NON AF MALAGASY 53 mL/min/1.73m2 Critically low >=60 [facility] Comment on above: Performed By: #### M G, RENAL, URIC #### [facility] [address] [address] [address] Shayne Roldan Glucose [Mass/Vol] 92 mg/dL Normal 74-106 [facility] Comment on above: Performed By: #### M G, RENAL, URIC #### [facility] [address] [place] [address] Dr. Shayne Roldan Phosphate [Mass/Vol] 2.4 mg/dL Critically low 2.6-4.7 [facility] Comment on above: Performed By: #### M G, RENAL, URIC #### [facility] [address] [place] [address] Dr. Shayne Roldan Potassium [Moles/Vol] 2.8 mmol/L Critically low 3.5-5.1 [facility] Comment on above: Performed By: #### M G, RENAL, URIC #### [facility] [address] [place] [address] Dr. Shayne Roldan Sodium [Moles/Vol] 137 mmol/L Normal 136-145 [facility] Comment on above: Performed By: #### M G, RENAL, URIC #### [facility] [address] [place] [address] Dr. Shayne Roldan Urea nitrogen [Mass/Vol] 10.0 mg/dL Normal 7.0-18.0 [facility] Comment on above: Performed By: #### M G, RENAL, URIC #### [facility] [address] [place] [address] Dr. Shayne Roldan UA RANDOM W/MICROSCOPICon BACTERIA SMALL Abnormal NONE SEEN [facility] Comment on above: Performed By: #### U AMIC #### [facility] [address] [place] [address] Dr. Shayne Roldan Bilirubin Ql (U) Negative Normal NEGATIVE [facility] Comment on above: Performed By: #### U AMIC #### [facility] [address] [place] [address] Dr. Shayne Roldan CAST NONE SEEN Normal NONE SEEN [facility] Comment on above: Performed By: #### U AMIC #### [facility] [address] [place] [address] Dr. Shayne Roldan Clarity (U) CLEAR Normal CLEAR [facility] Comment on above: Performed By: #### U AMIC #### [facility] [address] [address] [address] Shayne Roldan Color (U) LT. YELLOW Normal YELLOW [facility] Comment on above: Performed By: #### U AMIC #### [facility] [address] [address] [address] Shayne Rodlan Crystals LM Nom (Urine sed) NONE SEEN Normal NONE SEEN [facility] Comment on above: Performed By: #### U AMIC #### [facility] [address] [address] [address] Shayne Roldan Epithelial cells LM Ql (Urine sed) FEW Abnormal NONE SEEN /RARE [facility] Comment on above: Performed By: #### U AMIC #### [facility] [address] [address] [address] Shayne Roldan Glucose Ql (U) Negative Normal NEGATIVE [facility] Comment on above: Performed By: #### U AMIC #### [facility] [address] [address] [address] Shayne Roldan Hemoglobin Ql (U) Negative Normal NEGATIVE [facility] [place] [facility] Comment on above: Performed By: #### U AMIC #### [facility] [address] [address] [address] Shayne Roldan Ketones Ql (U) Negative Normal NEGATIVE [facility] Comment on above: Performed By: #### U AMIC #### [facility] [address] [address] [address] Shayne Roldan LEUKOCYTES TRACE Abnormal NEGATIVE [facility] Comment on above: Performed By: #### U AMIC #### [facility] [address] [address] [address] Shayne Roldan MUCOUS NONE SEEN Normal NONE SEEN [facility] Comment on above: Performed By: #### U AMIC #### [facility] [address] [address] [address] Shayne Roldan Nitrite Ql (U) Negative Normal NEGATIVE [facility] Comment on above: Performed By: #### U AMIC #### [facility] [address] [place] [address] Dr. Shayne Roldan pH (U) 6.0 [pH] Normal 5-9 [facility] Comment on above: Performed By: #### U AMIC #### [facility] [address] [place] [address] Dr. Shayne Roldan RBC NONE SEEN Abnormal 0-2 [facility] Comment on above: Performed By: #### U AMIC #### [facility] [address] [place] [address] Dr. Shayne Roldan SPEC GRAVITY <=1.005 Abnormal 1.005-<=1.025 [facility] Comment on above: Performed By: #### U AMIC #### [facility] [address] [place] [address] Dr. Shayne Roldan UA PROTEIN Negative Normal NEGATIVE/ TRACE [facility] Comment on above: Performed By: #### U AMIC #### [facility] [address] [place] [address] Dr. Shayne Roldan Urobilinogen Qn (U) 0.2 {Rogelio'U}/dL Normal 0.2 - 1. 0 [facility] Comment on above: Performed By: #### U AMIC #### [facility] [address] [place] [address] Dr. Shayne Roldan WBC 5-10 Abnormal NONE SEEN [facility] Comment on above: Performed By: #### U AMIC #### [facility] [address] [place] [address] Dr. Shayne Roldan URIC ACID SERUMon 08-05-2022 Urate [Mass/Vol] 6.5 mg/dL Critically high 2.6-6.0 [facility] Comment on above: Performed By: #### M G, RENAL, URIC #### [facility] [address] [place] [address] Dr. Shayne Roldan URINE T PROTEIN CREAT RATIOo n 08-05-2022 Protein (U) [Mass/Vol] 4.8 mg/dL Normal <=12.0 [facility] Comment on above: Performed By: #### U RTPCR #### [facility] [address] [address] [address] Shayne Roldan UR PROT CREAT RAT 0.[address] [facility] Comment on above: Performed By: #### U RTPCR #### [facility] [address] [address] [address] Shayne Roldan URINE CREAT 52.65 mg/dL Normal 20.00-300.00 [facility] Comment on above: Performed By: #### U RTPCR #### [facility] [address] [address] [address] Shayne Roldan VITAMIN D 25 OHon 08-05-2022 VIT D 25-OH 38.9 ng/mL Normal [facility] Comment on above: Performed By: #### M G, RENAL, URIC #### [facility] [address] [address] [address] Shayne Roldan VIT D RANGES SEE BELOW Normal [facility] Comment on above: Result Comment: <20 ng/mL Vit D deficient 20 - <30 ng/mL Vit D insufficient 30 - 100 ng/mL Vit D sufficient >100 ng/mL Potential Toxicity Performed By: #### M G, RENAL, URIC #### [facility] [address] [address] [address] Shayne Roldan IMMUNOGLOBULINS IGA/IGM/IGG/ IGE QUANTITAon 07-12-2022 Immunoglobulin A, Qn, Serum 295 mg/dL Normal 87-352 [facility] Comment on above: Result Comment: Perf ormed at: CB Performed By: #### M G, RENAL, URIC #### [facility] [address] [address] [address] Shayne Roldan Immunoglobulin E, Total 32 IU/mL Normal 6-495 [facility] Comment on above: Result Comment: Perf ormed at: BN Performed By: #### M G, RENAL, URIC #### [facility] [address] [address] [address] Shayne Roldan Immunoglobulin G, Qn, Serum 729 mg/dL Normal 586-1602 [facility] Comment on above: Result Comment: Perf ormed at: CB Performed By: #### M G, RENAL, URIC #### [facility] [address] [address] [address] Shayne Roldan Immunoglobulin M, Qn, Serum 75 mg/dL Normal 26-217 [facility] Comment on above: Result Comment: Perf ormed at: CB Performed By: #### M G, RENAL, URIC #### [facility] [address] [address] [address] Shayne Roldan Abstracton 07-08-2022 Abstract [id number] AkiraYannickclarice Fan 1955 F Date Provider Department Center 07/08/2022 JOHANNA MEDINA [facility] Family History Problem Relation Age of Onset Heart failure Mother Heart disease Father Family Status - Relation Status Age at Mother Father Normal [facility] CBC AUTO DIFFon 07-05-2022 BASO # 0.1 103/ul Normal 0.0-0.1 [facility] Comment on above: Performed By: #### M G, RENAL, URIC #### [facility] [address] [address] [address] Shayne Roldan Basophils/100 WBC (Bld) 0.7 % Normal 0.2-2.0 [facility] Comment on above: Performed By: #### M G, RENAL, URIC #### [facility] [address] [address] [address] Shayne Roldan EO # 0.4 103/ul Normal 0.0-0.7 [facility] Comment on above: Performed By: #### M G, RENAL, URIC #### [facility] [address] [address] [address] Shayne Roldan Eosinophils/100 WBC (Bld) 4.4 % Normal 0.9-7.0 [facility] Comment on above: Performed By: #### M G, RENAL, URIC #### [facility] [address] [place] [address] Dr. Shayne Roldan Erythrocyte distribution width (RBC) [Ratio] 12.6 % Normal 11.0-15.0 [facility] Comment on above: Performed By: #### M G, RENAL, URIC #### [facility] [address] [address] [address] Shayne Roldan Hematocrit (Bld) [Volume fraction] 40.2 % Normal 36.0-48.0 [facility] Comment on above: Performed By: #### M G, RENAL, URIC #### [facility] [address] [place] [address] Dr. Shayne Roldan Hemoglobin (Bld) [Mass/Vol] 13.6 g/dL Normal 12.0-16.0 [facility] Comment on above: Performed By: #### M G, RENAL, URIC #### [facility] [address] [place] [address] Dr. Shayne Roldan IG # 0.07 10e3/ul Critically high 0.00-0.[address] [facility] Comment on above: Performed By: #### M G, RENAL, URIC #### [facility] [address] [place] [address] Dr. Shayne Roldan IG % 0.8 % Critically high 0.0-0.5 [facility] Comment on above: Performed By: #### M G, RENAL, URIC #### [facility] [address] [place] [address] Dr. Shayne Roldan LYMPH # 2.3 103/ul Normal 1.2-3.8 [facility] Comment on above: Performed By: #### M G, RENAL, URIC #### [facility] [address] [place] [address] Dr. Shayne Roladn Lymphocytes/100 WBC (Bld) 24.7 % Normal 20.5-60.0 [facility] Comment on above: Performed By: #### M G, RENAL, URIC #### [facility] [address] [place] [address] Dr. Shayne Roldan MANUAL DIFF REQ NO Normal [facility] Comment on above: Performed By: #### M G, RENAL, URIC #### [facility] [address] [place] [address] Dr. Shayne Roldan MCH (RBC) [Entitic mass] 30.7 pg Normal 26.7-34.0 [facility] Comment on above: Performed By: #### M G, RENAL, URIC #### [facility] [address] [place] [address] Dr. Shayne Roldan MCHC (RBC) [Mass/Vol] 33.8 g/dL Normal 29.9-35.2 [facility] Comment on above: Performed By: #### M G, RENAL, URIC #### [facility] [address] [place] [address] Dr. Shayne Roldan MCV (RBC) [Entitic vol] 90.7 fL Normal 81.0-99.0 [facility] Comment on above: Performed By: #### M G, RENAL, URIC #### [facility] [address] [place] [address] Dr. Shayne Roldan MONO # 0.7 103/ul Normal 0.3-0.8 [facility] Comment on above: Performed By: #### M G, RENAL, URIC #### [facility] [address] [place] [address] Dr. Shayne Roldan Monocytes/100 WBC (Bld) 7.7 % Normal 1.7-12.0 [facility] Comment on above: Performed By: #### M G, RENAL, URIC #### [facility] [address] [place] [address] Dr. Shayne Roldan NEUT # 5.7 103/ul Normal 1.4-6.5 [facility] Comment on above: Performed By: #### M G, RENAL, URIC #### [facility] [address] [place] [address] Dr. Shayne Roldan Neutrophils/100 WBC (Bld) 61.7 % Normal 43.0-75.0 [facility] Comment on above: Performed By: #### M G, RENAL, URIC #### [facility] [address] [place] [address] Dr. Shayne Roldan Platelet mean volume (Bld) [Entitic vol] 8.8 fL Critically low 9.5-13.5 [facility] Comment on above: Performed By: #### M G, RENAL, URIC #### [facility] [address] [place] [address] Dr. Shayne Roldan PLT 279 103/ul Normal 150-450 [facility] Comment on above: Performed By: #### M G, RENAL, URIC #### [facility] [address] [place], [place] [address] Dr. Shayne Roldan RBC 4.43 106/ul Normal 4.20-5.40 [facility] Comment on above: Performed By: #### M G, RENAL, URIC #### [facility] [address] [place], [place] [address] Dr. Shayne Roldan WBC 9.1 103/ul Normal 4.0-11.0 [facility] Comment on above: Performed By: #### M G, RENAL, URIC #### [facility] [address] [place], [place] [address] Dr. Shayne Roldan Covid-19 PCR ([facility])on SARS-CoV-2 (COVID-19) RNA KAYLEE+probe Ql (Unsp spec) Not detected Normal NOT DETECTED [facility] Comment on above: Result Comment: This test is not yet approved or cleared by the [place] FDA. When there are no FDA-approved or cleared tests available, and other criteria are met, FDA can make tests available under an emergency access mechanism called an Emergency Use Authorization (EUA). The EUA for this test is supported by the [place] of Health and Human Service's (HHS's) declaration [...] By: #### M G, RENAL, URIC #### [facility] [address] [place], [place] [address] Dr. Shayne Roldan XR CHEST 2 Von [...] NARDA LONDONO Date: 2022-06-08 19:58 Normal [facility] Covid-19 PCR ([facility])on SARS-CoV-2 (COVID-19) RNA KAYLEE+probe Ql (Unsp spec) Not detected Normal NOT DETECTED [facility] Comment on above: Result Comment: This test is not yet approved or cleared by the [place] FDA. When there are no FDA-approved or cleared tests available, and other criteria are met, FDA can make tests available under an emergency access mechanism called an Emergency Use Authorization (EUA). The EUA for this test is supported by the [place] of Health and Human Service's (HHS's) declaration [...] consistent with SARS-CoV-2. Performed By: #### [facility] #### [facility] [address] [place] [address] Dr. Shayne Roldan DEXA AXIALon 03-01-2022 DEXA AXIAL [facility] Department of Radiology [address] [place] [id number] Patient Name: DIANA CHAMPION : 1955 [...] characteristics. Electronically signed: Luzma Fernandez. Transcribed by: [email or web address], User Resident: Electronically Signed by: LUZMA FERNANDEZ @ 03/02/2022 01:07 PM Normal [facility] SCOLIOSIS 2 [facility] 02-24-2022 SCOLIOSIS 2 [facility] Department of Radiology [address] [place] [id number] Patient Name: DIANA CHAMPION : 1955 Sex: F Age: Race: White Pt. Location: Patient Status: D Ordered Date: 02/24/2022 1:25:00 PM Completed Date: 02/24/2022 01:44 PM Requesting Provider: CINDA ANTONIO Attending Provider: Report Copy To: Signs & Symptoms: M43.10 Spondylolisthesis, site unspecified I10 History: Comments: Views (X-RAY, SCOLIOSIS): PA, Lateral evaluate Exam: SCOLIOSIS 2 [facility] Scoliosis. Worsening pain. Frontal and lateral thoracolumbar spine IMPRESSION: 1. Diffuse disc disease and facet arthritis. Right convex mid lumbar curvature measuring 16 degrees. Interbody fusion hardware lower lumbar spine. Electronically signed: Hugo Lynn. Transcribed by: [email or web address], User Resident: Electronically Signed by: HUGO LYNN @ 02/26/2022 11:07 AM Normal [facility] Comment on above: Order Comment: Views (X-RAY, SCOLIOSIS): PA, Lateral evaluate CT LUMBAR SPINE W CONTRASTon 01-24-2022 CT LUMBAR SPINE W CONTRAST [facility] Department of Radiology [address] [place] [id number] Patient Name: DIANA CHAMPION : 1955 Sex: F Age: Race: White Pt. Location: Patient Status: D Ordered Date: 01/09/2022 9:00:00 AM Completed Date: 01/24/2022 03:26 PM Requesting Provider: JOO LINN Attending Provider: JOO LINN Report Copy To: UNKNOWN, PHYSICIAN Signs & Symptoms: M54.16 Radiculopathy, lumbar region I10 History: [place] Comments: , CT MYELOGRAM>PAPER WORK IN CHART [...] L1-2. Electronically signed: Gaurang Lawrence. Transcribed by: [email or web address], User Resident: Electronically Signed by: GAURANG LAWRENCE @ 01/26/2022 08:58 AM Normal [facility] Comment on above: Order Comment: , CT MYELOGRAM>PAPER WORK IN CHART LUMBAR MYELOGRAMon LUMBAR MYELOGRAM [facility] Department of Radiology [address] [place] [id number] Patient Name: DIANA CHAMPION : 1955 Sex: F Age: Race: White Pt. Location: 85 Patient Status: O Ordered Date: 01/09/2022 9:00:00 AM Completed Date: 01/24/2022 02:37 PM Requesting Provider: JOO LINN Attending Provider: JOO LINN Report Copy To: UNKNOWN, PHYSICIAN Signs & Symptoms: M54.16 Radiculopathy, lumbar region I10 History: Jessica Is patient on thinners? 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 Consent was obtained. Timeout: [place] protocol timeout verification performed. PROCEDURE: Estimated blood [...] report. Electronically signed: Greg Marlow. Transcribed by: [email or web address], User Resident: DEBBIE JI Electronically Signed by: GREG MARLOW @ 01/24/2022 04:07 PM I personally read this/these film(s) with this resident Normal [facility] Comment on above: Order Comment: , CT MYELOGRAM> PAPER WORK SCANNED IN CHART , CT MYELOGRAM> PAPER WORK SCANNED IN CHART , , , Ordering Provider - JOO LINN MD , HIP LEFT 1 OR 2 VWS WITH PEL VISon 01-06-2022 HIP LEFT 1 OR 2 VWS WITH PELVIS [facility] Department of Radiology [address] [place] [id number] Patient Name: DIANA CHAMPION : 1955 [...] hardware. Electronically signed: Joe Matthew. Transcribed by: [email or web address], User Resident: Electronically Signed by: JOE MATTHEW @ 01/09/2022 04:45 PM Normal [facility] Comment on above: Order Comment: Evalu ate Vital Signs Date Time Vital Sign Value Performing Clinician Facility 08-17-2023 09:20-0400 Body height 165.1 cm [facility] Other [facility] Other 08-17-2023 09:20-0400 Body mass index (BMI) [Ratio] 38.1 kg/m2 [facility] Other [facility] Other 08-17-2023 09:20-0400 Body temperature 98.8 [degF] [facility] Other [facility] Other 08-17-2023 09:20-0400 Body weight 103.87 kg [facility] Other [facility] Other 08-17-2023 09:20-0400 Diastolic blood pressure 85 mm[Hg] [facility] Other [facility] Other 08-17-2023 09:20-0400 Respiratory rate 18 /min [facility] Other [facility] Other 08-17-2023 09:20-0400 SaO2% (BldA) [Mass fraction] 94 % [facility] Other [facility] Other 08-17-2023 09:20-0400 Systolic blood pressure 151 mm[Hg] [facility] Other [facility] Other 03-02-2023 10:00-0400 Body height 165.1 cm [facility] Other [facility] Other 03-02-2023 10:00-0400 Body mass index (BMI) [Ratio] 37.29 kg/m2 [facility] Other [facility] Other 03-02-2023 10:00-0400 Body temperature 98.9 [degF] [facility] Other [facility] Other 03-02-2023 10:00-0400 Body weight 101.65 kg [facility] Other [facility] Other 03-02-2023 10:00-0400 Diastolic blood pressure 76 mm[Hg] [facility] Other [facility] Other 03-02-2023 10:00-0400 Respiratory rate 20 /min [facility] Other [facility] Other 03-02-2023 10:00-0400 SaO2% (BldA) [Mass fraction] 96 % [facility] Other [facility] Other 03-02-2023 10:00-0400 Systolic blood pressure 136 mm[Hg] [facility] Other [facility] Other 12-08-2022 09:30-0500 Diastolic blood pressure 59 mm[Hg] MD Shaikh Ohara Work Phone: [facility] 12-08-2022 09:30-0500 Heart rate 55 /min MD Shaikh Ohara Work Phone: [facility] 12-08-2022 09:30-0500 Respiratory rate 16 /min MD Shaikh Ohara Work Phone: [facility] 12-08-2022 09:30-0500 SaO2% (BldA) [Mass fraction] 96 % MD Shaikh Ohara Work Phone: [facility] 12-08-2022 09:30-0500 Systolic blood pressure 112 mm[Hg] MD Shaikh Ohara Work Phone: [facility] 12-08-2022 06:54-0500 Body height 162.56 cm MD Shaikh Ohara Work Phone: [facility] 12-08-2022 06:54-0500 Body temperature 98.2 [degF] MD Shaikh Ohara Work Phone: [facility] 12-08-2022 06:54-0500 Body weight 104.32 kg MD Shaikh Ohara Work Phone: [facility] 08-09-2022 11:00-0400 Body height 165.1 cm [facility] Other [facility] Other 08-09-2022 11:00-0400 Body mass index (BMI) [Ratio] 37.87 kg/m2 [facility] Other [facility] Other 08-09-2022 11:00-0400 Body temperature 97.2 [degF] [facility] Other [facility] Other 08-09-2022 11:00-0400 Body weight 103.24 kg [facility] Jo[facility] Other [facility] Other 08-09-2022 11:00-0400 Diastolic blood pressure 88 mm[Hg] [facility] Other [facility] Other 08-09-2022 11:00-0400 Respiratory rate 20 /min [facility] Other [facility] Other 08-09-2022 11:00-0400 SaO2% (BldA) [Mass fraction] 95 % [facility] Jo[facility] Other [facility] Other 08-09-2022 11:00-0400 Systolic blood pressure 133 mm[Hg] [facility] Joana Other [facility] Other 11-17-2021 10:40-0500 Body height 165.1 cm [facility] Jo[facility] Other [facility] Other 11-17-2021 10:40-0500 Body mass index (BMI) [Ratio] 37.97 kg/m2 [facility] Jo[facility] Other [facility] Other 11-17-2021 10:40-0500 Body temperature 97.8 [degF] [facility] Jo[facility] Other [facility] Other 11-17-2021 10:40-0500 Body weight 103.51 kg [facility] Joana Other [facility] Other 11-17-2021 10:40-0500 Diastolic blood pressure 70 mm[Hg] Herberth Joana Other [facility] Other 11-17-2021 10:40-0500 Respiratory rate 18 /min Herberth Joana Other [facility] Other 11-17-2021 10:40-0500 SaO2% (BldA) [Mass fraction] 94 % Herberth Joana Other [facility] Other 11-17-2021 10:40-0500 Systolic blood pressure 130 mm[Hg] Herberth Rivera Other [facility] Other 08-30-2021 13:15-0400 Body height 165.1 cm Rena Ginty Other [facility] Other 08-30-2021 13:15-0400 Body mass index (BMI) [Ratio] 36.61 kg/m2 Rena Ginty Other [facility] Other 08-30-2021 13:15-0400 Body temperature 98.7 [degF] Rena Ginty Other [facility] Other 08-30-2021 13:15-0400 Body weight 99.79 kg Rena Ginty Other [facility] Other 08-30-2021 13:15-0400 SaO2% (BldA) [Mass fraction] 90 % Rena Ginty Other [facility] Other Encounters Encounter Date Encounter Type Care Provider Facility Start: 02-15-2024 End: 02-15-2024 ambulatory ROSHNI ATNHONYDimitryHOLZ Not Available Start: 01-25-2024 End: 01-25-2024 ambulatory SAUNDERS FAWWAD Not Available Start: 12-28-2023 End: 12-28-2023 ambulatory SAUNDERS FAWWAD Not Available Start: 12-18-2023 End: 12-19-2023 ambulatory Jayshree Vargas MD Facility: [facility] Start: 12-05-2023 End: 12-05-2023 ambulatory SAUNDERS FAWWAD Not Available Start: 11-13-2023 End: 11-14-2023 ambulatory Jayshree Vargas MD Facility: [facility] Start: 11-02-2023 End: 11-02-2023 ambulatory SAUNDERS FAJavonWAD Not Available Start: 10-09-2023 End: 10-10-2023 ambulatory Jayshree Vargas MD Facility: [facility] Start: 10-04-2023 End: 10-04-2023 ambulatory SHAIKH EDUARDAWAD Not Available Start: 09-07-2023 End: 09-07-2023 ambulatory Herberth Joana Other [facility] Other Start: 09-07-2023 Telephone encounter Herberth Joana [facility] Start: 08-28-2023 End: 08-28-2023 ambulatory Herberth Joana Other [facility] Other Start: 08-28-2023 Telephone encounter Herberth Joana [facility] Start: 08-21-2023 End: 08-22-2023 ambulatory Jayshree Vargas MD Facility: [facility] Start: 08-17-2023 End: 08-17-2023 ambulatory Herberth Joana Other [facility] Other Start: 08-17-2023 Office outpatient visit 25 minutes Herberth Jaona [facility] [place] Start: 05-08-2023 End: 05-08-2023 ambulatory AB [facility] Start: 04-04-2023 End: 04-04-2023 ambulatory SHAIKH Dimitry LEV Facility:[facility] Start: 03-24-2023 End: 03-25-[address] STEPH GRANADOS Facility:[facility] Start: 03-23-2023 ambulatory JOO LINN [facility] Start: 03-02-2023 End: 03-02-2023 ambulatory Herberth Joana Other [facility] Other Start: 03-02-2023 Office outpatient visit 25 minutes Herberth Joana [facility] Start: 02-25-2023 End: 02-26-2023 ambulatory HERBERTH JOANA Facility:[facility] Start: 02-22-2023 End: 02-23-2023 ambulatory BO MCCLAIN . Facility:[facility] Start: 12-15-2022 End: 12-16-[address] JACK HALL . Facility:[facility] Start: 12-08-2022 End: 12-08-2022 ambulatory Shaikh Lev Facility:[facility] Start: 12-08-2022 End: 12-08-2022 Admission to same day surgery center MD Shaikh Ohara Work Phone: [facility] Work Phone: Start: 12-08-2022 End: 12-08-2022 ambulatory MD Shaikh Ohara Work Phone: [facility] Work Phone: Start: 11-11-2022 End: 11-11-[address] JACK HALL . Facility:[facility] Start: 11-09-2022 End: 11-09-2022 ambulatory Azkatherine Bakhous Other [facility] Other Start: 11-09-2022 Telephone encounter Azkatherine Bakhous [facility] Start: 08-19-2022 End: 08-20-2022 ambulatory HERBERTH JOANA Facility: Start: 08-09-2022 End: 08-09-2022 ambulatory Herberth Joana Other [facility] Other Start: 08-09-2022 Office outpatient visit 10 minutes Herberth Joana [facility] Start: 08-09-2022 Telephone encounter Herberth Joana [facility] Start: 08-05-2022 Telephone encounter Herberth Joana [facility] Start: 08-05-2022 End: 08-06-2022 ambulatory HERBERTH JOANA [facility] Other Start: 07-08-2022 End: 07-08-2022 ambulatory Gato Domingo Other [facility] Other Start: 07-08-2022 Telephone encounter Gato Goelian ck [facility] Start: 07-05-2022 End: 07-06-2022 ambulatory SAUNDERS H FAWWAD Facility:[facility] Start: 06-08-2022 End: 06-09-2022 ambulatory SAUNDERS H FAWWAD Facility:[facility] Start: 06-07-2022 End: 06-07-2022 ambulatory SAUNDERS H FAWWAD Facility:[facility] Start: 01-24-2022 End: 01-25-2022 ambulatory PHYSICIAN UNKNOWN Facility:[facility] Start: 11-17-2021 End: 11-17-2021 ambulatory Herberth Joana Other [facility] Other Start: 11-17-2021 Office outpatient visit 15 minutes Herberth Joana [facility] Start: 08-30-2021 Office outpatient visit 15 minutes Rena Ginty [facility] Start: 09-11-2020 End: 09-11-2020 Chart abstracting Miguelito Buck Work Phone: Hematology/Oncology Start: 09-11-2020 End: 09-11-2020 Patient encounter procedure External Provider [facility] Start: 09-11-2020 Results Only External Provider Exter [facility] Start: 09-30-2019 End: 09-30-2019 Patient encounter procedure [facility] [place] Start: 07-07-2017 End: 07-07-2017 Admission to day surgery [facility] Start: 05-24-2004 Evaluation and management of inpatient [facility] [place] Start: 04-26-2004 Evaluation and management of inpatient [facility] [place] Procedures Date Procedure Procedure Detail Performing Clinician Start: 12-08-2022 Colonoscopy MD Shaikh Ohara Work Phone: Start: 09-11-2020 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 Start: 09-11-2020 EXTERNAL LAB External P rovider Start: 09-11-2020 EXTERNAL PROCEDURE Exte rnal Provider Start: 09-30-2019 Ultrasonography of b ilateral kidneys Steph Galindo Plan of Treatment Date Care Activity Detail Author Start: 12-08-2022 [facility] Start: 07-07-2020 Influenza vaccination INFLUENZA (#1) [facility] Start: 2006 SHINGRIX VACCINE (1 of 2) SHINGRIX VACCINE (1 of 2) [facility] Start: 2006 Tuberculosis screening COLORECTAL CANCER SCREENING,SEE MODIFIER [facility] Start: 2001 DIABETES SCREEN DIABETES SCREEN [facility] Start: 2001 LIPID SCREEN LIPID SCREEN [facility] Start: 1996 Mammography MAMMOGRAM [facility] Start: 1986 HPV TESTING HPV TESTING [facility] Start: 1977 PAP TESTING PAP TESTING [facility] Start: 1975 Urine microalbumin profile DTAP,TDAP,TD (1 - Tdap) [facility] Start: 1974 HEPATITIS C SCREENING HEPATITIS C SCREENING [facility] Start: 1974 HIV SCREENING HIV SCREENING [facility] Patient Education Colon Polypect shahram Hemorrhoids (DC) Diverticulosis (DC) [facility] Work Phone: [facility] Immunizations Immunization Date Immunization Notes Care Provider Henrietta charles 07-18-2018 Depo-Medrol 40 mg Rena Gint y Other [facility] Other 01-31-2018 Depo-Medrol 40 mg Rena Gint y Other [facility] Other 08-09-2017 influenza, seasonal, injectable, preservative free Rena Ginty Other [facility] Other Payers Date Payer Category Payer Unknown 2022 Self-pay [id number] 2021 Medicare [id number] 2020 Medicaid [id number] 2019 Medicaid MEDICAID [facility] MEDICAID [id number] 2019-Present Medicaid [id number] 2016 Medicare MEDICARE MEDICAR E A AND B [id number] 2016-Present [place] Medicare [id number] 1959 Unknown [id number] 1956 Unknown [id number] 2.16.840.1.640223.3.579.2.647 1956 Unknown [id number] 2.16.840.1.182769.3.579.2.593 1956 Unknown [id number] 2.16.840.1.468698.3.579.2.593 1956 Unknown [id number] 2.16.840.1.322254.3.579.2.593 1956 Unknown [id number] 2.16.840.1.933794.3.579.2.593 1956 Unknown [id number] 2.16.840.1.749731.3.579.2.593 1956 Unknown [id number] 2.16.840.1.403823.3.579.2.593 1956 Unknown [id number] 2.16.840.1.098081.3.579.2.593 1956 Unknown [id number] 2.16.840.1.613304.3.579.2.593 1956 Unknown [id number] 2.16.840.1.301935.3.579.2.593 1956 Unknown [id number] 2.16.840.1.542000.3.579.2.593 1956 Unknown [id number] 2.16.840.1.835976.3.579.2.593 1956 Unknown [id number] 2.16.840.1.406250.3.579.2.196 1956 Unknown [id number] 2.16.840.1.342325.3.579.2.196 1956 Unknown [id number] 2.16.840.1.321590.3.579.2.196 1956 Unknown [id number] 2.16.840.1.277003.3.579.2.196 1956 Unknown [id number] 2.16.840.1.540865.3.579.2.1259 1956 Unknown [id number] 2.16.840.1.532747.3.579.2.1259 1956 Unknown [id number] 2.16.840.1.637313.3.579.2.1259 1956 Unknown [id number] 2.16.840.1.230377.3.579.2.1259 1956 Unknown [id number] 2.16.840.1.587948.3.579.2.1259 1956 Unknown [id number] 2.16.840.1.039923.3.579.2.1259 Medicare [id number] Unknown HCAP/HFA/FAP Active [id number] Unknown [id number] 2.16.840.1.591583.3.579.2.531 Social History Date Type Detail [facility] Start: 1955 Sex Assigned At Female F [facility] Start: 09-11-2020 End: 12-08-2022 Tobacco smoking status NHIS Never smoker [facility] Start: 09-11-2020 Tobacco use and exposure Never used [facility] Start: 09-11-2020 Alcohol intake Lifetime non-d my (finding) [facility] Start: 09-11-2020 History SDOH Alcohol Frequency 1 [facility] Sex Assigned At Not on file [facility] Sex Assigned At Sex Assigned At Bir th [facility] Other Goals Date Patient Goal Desired Activity /State Clinical Notes 08-30-2021 to 09-07-2023 Note Date & Type Note Facility 09-07-2023 Evaluation note Encounter Date Diagnosis Assessment Notes Sep, Hypomagnesemia (ICD-10 - E83.42) [facility] Other 10-23-2023 Evaluation note* Encounter Date Diagnosis Assessment Notes Treatment Notes Treatment Clinical Notes Aug, Nico lopez w cr kid I-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 Continue oral Magnesium [facility] Other [id number] [facility] Chief Complaint: Patient here for 1 year follow up CAD and hypertension. She was recently discharged from [facility] for Covid-19. She says hydrochlorothiazide [...] breath since then. 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 Her chest pain is noncardiac. She has no other cardiac complaints. Cardiology ROS: Review of Systems Cardiovascular: Positive for chest pain and dyspnea on exertion. Respiratory: Positive for wheezing. Musculoskeletal: Positive for arthritis, back pain, joint pain and myalgias. Neurological: Positive for light-headedness. All other systems reviewed and are negative. Past Medical History She has a past medical history of Cancer ([facility]) and Hypertension. [...] 325 mg by mouth., Disp: , Rfl: tgdipajejam-bdwkodvsl-bdsrcrar 100-62.5-25 mcg blister with device, , Disp: [...] CTAB, no increased eff (more content not included)...[facility]05-19-2023 NotePROCEDURE: XR HIP RT 2 3V W PELVIS HISTORY: Pain in right hip joint , chronic COMPARISON: XR L-spine 02/26/2019, XR left hip with pelvis 03/11/2017 FINDINGS: BONES:Complete loss of the right hip joint space with gdpv-zz-ghdg articulation, subchondral sclerosis and cysts, and large periarticular degenerative osteophytes. No fracture or dislocation. Left hip replacement. Mechanical fusion of L5-S1 and moderate dextroscoliosis of lumbar spine. SOFT TISSUES:No visible soft tissue swelling. EFFUSION:None visible. OTHER: Negative. IMPRESSION: 1. Marked degenerative joint disease of the right hip; progressed since prior study. 2. Stable surgical changes. Electronically authenticated by: STEPH GRANADOS Date: 2023-03-24 12:55[facility]05-18-2023 NoteSubjective 03/23/23 Diana Champion is a [...] LIGATION Past Medical History: Diagnosis Date Cancer ([facility]) Hypertension Objective [...] from the patient's PCP as well as production control supervisor for a right anterior total hip [...] may be an additional personal documentation from me.[facility]04-27-2023 Evaluation note* Encounter Date Diagnosis [...] PPI induced GI losses. Continue oral Magnesium [facility]* Encounter Date Diagnosis Assessment Notes Treatment Notes Treatment Clinical Notes Nov, Hypokalemia (ICD-10 - E87.6) Nov, Hypomagnesemia (ICD-10 - E83.42) [facility] Other 10-04-2022 Evaluation note* Encounter Date Diagnosis [...] office does not accept her new insurance. [facility] Other 09-02-2022 Evaluation note* Encounter Date Diagnosis Assessment Notes Treatment Notes Treatment Clinical Notes Jul, History of colon cancer (ICD-10 - Z85.038) [facility] Other 01-12-2022 Evaluation note* Encounter Date Diagnosis [...] potassium wasting. I have prescribed oral potassium. [facility] Other 10-25-2021 Evaluation note* Encounter Date Diagnosis [...] in writting by [facility] Care At Home document [facility] Other Evaluation noteNo InformationNortJames E. Van Zand[facility] [employer] Other Evaluation note* Diagnosis Onset Date Resolution Status History of colon cancer [facility] Work Phone: History general Narrative - [...] IN 08/2019 Hospitalization History HIP REVISION 03/2020 [facility] Other History general Narrative - Reported* Type [...] Hospitalization History COVID X 2 WEEKS 04/2023 [facility] Other Hospital Discharge instructions Additional Instructions DISCHARGE [...] if you have any problems. -Office number [phone] Work Phone: Advance Directives No Advanced [...] or prosecute any alcohol or drug abuse patient.[facility] Hospital[facility] the event this information is protected by the Federal Confidentiality of Alcohol and Drug Abuse Patient Records regulations: The Federal rules restrict any use of the information to criminally investigate or prosecute any alcohol or drug abuse patient.[facility] Hospital[facility] the event this information is protected by the Federal Confidentiality of Alcohol and Drug Abuse Patient Records regulations: The Federal rules restrict any use of the information to criminally investigate or prosecute any alcohol or drug abuse patient.[facility] HospitalIn the event this information is protected by the Federal Confidentiality of Alcohol and Drug Abuse Patient Records regulations: The Federal rules restrict any use of the information to criminally investigate or prosecute any alcohol or drug abuse patient.[facility] INFORMATION SOURCE (unrecogn ized section and content) DATE CREATED AUTHOR 03/03/2022 [facility] DATE CREATED AUTHOR AUTHOR'S ORGANIZ ATION 04/17/2023 [facility] DATE CREATED AUTHOR AUTHOR'S ORGANIZ ATION 05/08/2023 [facility] DATE CREATED AUTHOR AUTHOR'S ORGANIZ ATION 06/07/2023 [facility] DATE CREATED AUTHOR AUTHOR'S ORGANIZ ATION 12/24/2023 [facility] DATE CREATED AUTHOR AUTHOR'S ORGANIZ ATION 02/16/2024 [facility] EPIC REASON FOR VISIT (unrecogniz [...] BE BASED ON THE PRIMARY CLINICAL RECORDS. [facility] Center[facility]. provides no warranty or guarantee of the accuracy or completeness of information in this document.
[2024-02-19 08:52] VITALS: BP 141/77; PULSE 78; TEMP 36.8; O2SAT 95
[2024-02-19] MEDS: 0.9 % SODIUM CHLORIDE 10 ML SYRINGE - SALINE FLUSH INJ (09:34)
[2024-02-19 09:35] VITALS: BP 118/70; BP 140/64; PULSE 69; PULSE 76; O2SAT 92
[2024-02-19] MEDS: LIDOCAINE HCL 2% PF 100 MG/5 ML VIAL INJ (09:35)
[2024-02-19] MEDS: IOHEXOL 240 MG/ML - 10 ML VIAL INJ (09:35)
[2024-02-19] MEDS: TRIAMCINOLONE ACETONIDE 40 MG/ML VIAL 80 MG INJ (09:35)
[2024-02-19] MEDS: BUPIVACAINE HCL 0.25% PF 25 MG/10 ML VIAL INJ (09:35)
--- NOTE | 2024-02-19 09:40 | W.PM.PROCNOT ---
Date of procedure: 02/19/24 Pre-op diagnosis: Lumbar stenosis with neurogenic claudication Post-op diagnosis: same as pre-op Procedure: Procedure: Bilateral L4-5 transforaminal epidural steroid injection Medications: Bupivacaine 0.25% 2cc, lidocaine 2% 1cc, kenalog 80mg The patient was seen and examined in the preoperative holding area.? Informed consent was obtained and placed on the chart.? Patient was brought to the medical procedure unit and placed in the prone position where a timeout was completed verifying the correct patient, procedure site, position, and planned special equipment using sterile aseptic technique.? Under direct fluoroscopic visualization a 25-gauge Quincke tipped spinal needle was advanced at level left L4-5 to the designated neural foramen where contrast dye was injected to show adequate spread.? There was no evidence of vascular or adverse uptake.? Epidural spread was appreciated.? The above-mentioned injectate was then placed in a 1.5 mL aliquot preceded by negative aspiration.? The needle was removed. The same procedure, at the same level, was completed on the opposite side. ? Patient was taken to the postprocedural recovery area and monitored for an appropriate length of time before found suitable for discharge in the accompaniment of a responsible adult. Anesthesia: Local Surgeon: Jayshree Vargas Pathology: none sent Condition: stable Disposition: no change
--- NOTE | 2024-02-19 09:50 | PC.NURSE ---
Pt attempted to stand after dressing in recovery, pt unsteady and unable to stand without assistance. Pt placed in wheelchair for observation.
== END 2024-02-19 10:07 | disposition home or self-care (01) ==
PROVIDERS: PCP Internal Medicine; Visit Provider Anesthesiology
DX: M48.062 Spinal stenosis, lumbar region with neurogenic claudication (principal)
CPT/HCPCS: 64483; Q9966

== ENCOUNTER 2024-02-28 13:27 | Outpatient (OUT) | payer OTHER, SELFPAY ==
--- NOTE | 2024-02-28 13:32 | MM_ITS ---
Patient Name: JHONATAN MONTOYA MR#: [id number] : 1955 Exam Date: 02/28/2024 Ordering Doctor: CLEO López CNP RADIOLOGY REPORT PROCEDURE: MM TOMOSYNTHESIS SCREENING BI COMPARISON: MG MAMM SCREEN 3D PRATEEK CAD, 12/15/2022. MG MAMM SCREEN 3D PRATEEK CAD, 11/26/2021. MG MAMM SCREEN PRATEEK W CAD, 11/19/2020. MG MAMM PRATEEK SCRN W CAD DIG, 12/16/2013. INDICATIONS: Screening Calculator Name NCI Breast Cancer Risk Assessment Tool 5 Year Breast Cancer Risk 1.20% Lifetime Breast Cancer Risk 4.20% Personal Breast Cancer No Personal Ovarian Cancer No Treatments Excision, radiation, chemotherapy Family Cancers None LOCATION: [facility] BREAST COMPOSITION: The breasts are almost entirely fatty. FINDINGS: DIAGNOSTIC CATEGORY 1--NEGATIVE. RIGHT BREAST: No significant suspicious finding. No significant change has occurred. LEFT BREAST: No significant suspicious finding. No significant change has occurred. RECOMMENDATIONS: ROUTINE MAMMOGRAM AND CLINICAL EVALUATION IN 12 MONTHS. PLEASE NOTE: A NORMAL MAMMOGRAM DOES NOT EXCLUDE THE POSSIBILITY OF BREAST CANCER. A CLINICALLY SUSPICIOUS PALPABLE LUMP SHOULD BE BIOPSIED. Dictated by: Michael Patel M.D. on 02/29/2024 at 16:00 Approved by: Michael Patel M.D. on 02/29/2024 at 16:01
== END 2024-02-28 13:28 | disposition home or self-care (01) ==
LOC: MAMMO 13:27
PROVIDERS: PCP Internal Medicine; Visit Provider Nurse Practitioner
DX: Z12.31 Encounter for screening mammogram for malignant neoplasm of breast (principal)
CPT/HCPCS: 77063; 77067

== ENCOUNTER 2024-02-29 07:41 | Outpatient (OUT) | payer OTHER, SELFPAY ==
--- OUTSIDE RECORDS SUMMARY | 2024-02-29 07:45 | XMS_ITS | CCD ---
Author Organization [facility] Care Team Providers Care Compensation Manager Name Role Phone Steph Collier Attending Provider Unavailable Chantel Rainey Primary Care Provider Unavailabl e Joana, Herberth Attending Provider Unavailable Unavailable Primary Care Provider Unavailabl e UNKNOWN, PHYSICIAN Referring Unavailable JOO LINN Attending Unavailable JOO LINN Admitting Unavailable UNKNOWN, PHYSICIAN Primary Care Unavailable Rena Hurd Unavailable Joana, Herberth Unavailable Gato Domingo Unavailable [phone] Steph Collier Attending Provider [phone] MD Gato Domingo Attending Provider MD [...] e FAWWAD, SAUNDERS H Primary Care Unavailable CAPE ELIZABETH, DR BRITTANY Elizondo Consulting Unavailable ZIEBBETH, DR [...] Attending Unavailable FAWWAD, SAUNDERS H Consulting Unavailable ELTAWYATT, HETAL Attending Unavailable JOO LINN Attending Unavailable Fawwad, Saunders Primary Care Unavailable Gato oDmingo Attending UnavailGato Chatterjee Admitting Unavailabl e FAWWAD, SAUNDERS Attending Unavailable FAWWAD, SAUNDERS Attending Unavailable FAWWAD, SAUNDERS Attending Unavailable FAWWAD, SAUNDERS Attending Unavailable ROSHNI LEDESMA Attending Unavailable FAWWAD, SAUNDERS Attending Unavailable FAWWAD, SAUNDERS Attending Unavailable Giedraitis , Andrius Elizondoytjulito Attending Unavailable Giedraitis , Andrius Vytjulito Attending Unavailable Giedraitis , Andrius Vytautas Attending Unavailable Giedraitis , Andrius Vytautclara Attending Unavailable Giedraitis , Andrius Vytjulito Attending Unavailable Unavailable Unavailable Unavailable Allergies Allergy Classification Reported Allergen(s) Allergy Type Date of Onset Reaction(s) Facility (3 sources) fentaNYL; Translations: [fentanyl] Drug Allergy 07-07-20 17 Hallucinating [facility] (2 sources) linezolid; Translations: [LINEZOLID] Drug Allergy 03-17-20 [facility] Repository (20 sources) Vancomycin; Translations: [VANCOMYCIN] Drug Allergy 03-17-20 Unknown [facility]ository (11 sources) DENIES METAL SENSITITIVITY Propensity to adverse reactions Unknown [employer] Other Medications Current Medications Medication Drug Class(es) [...] Oral Bedtime July 07, 2017 10:21am famotidine ([facility] ID) 20 mg tablet Take 20 mg [...] each nostril Nasally Once a day Active Lsfvdkbrmmf-Nxpwymufx-Vk lanter (1 source) Star t: 02-0 2-20 23 Wphjtmkjylg-Ugekpdnzj-I ilanter (Trelegy Ellipta) 200-62.5-25 mcg blister with [...] 1 puff(s) by inhalation twice daily Ipratropium [place] Active 2 PUFF Inhalation Twice daily July [...] 400 mg oral tablet (7 sources) Start: 022 take 1 tablet by mouth every twenty-four [...] 10:21am take 1 capsule by mo [facility] every twelve hours Omeprazole 20 [...] Active Start: 08-05-2022 [facility] hours Potassium Chloride ER [...] bone density and structure, right thigh; Translations: [OT D/O BONE DEN STRUCT RT THIGH] Onset: [...] Interpretation Reference Range Facility Follow-Upon 05-08-2023 Follow-Up [id number] Nell Champion 1955 F Date Provider Department Center 05/08/2023 [id number], EHAB BH CARD [facility] Family History Problem Relation Age of Onset Heart failure Mother Heart disease Father Family Status - Relation Status Age at Mother Father Level of Service:02835 SD OFFICE/OUTPATIENT ESTABLISHED LOW MDM 20-29 MIN Normal [facility] 3605-03-2023 36 PATIENT CALLED TO CANCEL SURGERY FOR July D/T HER LUNG DISEASE. WILL CALL TO RESCHEDULE WHEN FULLY HEALED FROM LUNGS AND CLEARED//[facility] 04-19-2023 36 FYI CALLED PATIENT T O F/U ON MEDICAL AND PULMONARY CLEARANCES FOR R ELZA ON 05/19 AND PRE-OP RIYA'T 04/27 WITH US AND PATIENT IS CURRENTLY INPATIENT SINCE LAST WEEK D/T COVID AND PULMONARY ISSUES, SHE WILL CALL US ON 04/25 WITH PROGRESS, PLEASE ADVISE IF WE SHOULD CANCEL SURGERY FOR NOW..THANKS//[facility] SYMPTOMATIC COVID-19 ANTIGEN on 04-04-2023 EUA Statement SEE BELOW [facility] Comment on above: Result Comment: This [...] sooner. Performed By: #### C VDAGS #### [facility] [address] [address] [address] Shayne Roldan SARS-CoV-2 (COVID-19) RNA KAYLEE+probe Ql (Unsp spec) Positive Abnormal NEGATIVE [facility] Comment on above: Performed By: #### C VDAGS #### [facility] [address] [place] [address] Dr. Shayne Roldan XR LSPINE 2_3 VIEWSon [...] STEPH GRANADOS Date: 2023-03-24 12:52 Normal [facility] PTH INTACTon 02-27-2023 PTH, Intact 87 pg/mL Critically high 15-65 [facility] Comment on above: Performed By: #### P THINT #### [facility] [address] [place] [address] Dr. Shayne Roldan HEMOGRAM AND PLATELon 2022 Hematocrit (Bld) [Volume fraction] 44.4 % Normal 36.0-48.0 [facility] Comment on above: Performed By: #### H H #### [facility] [address] [place] [address] Dr. Shayne Roldan Hemoglobin (Bld) [Mass/Vol] 14.5 g/dL Normal 12.0-16.0 [facility] Comment on above: Performed By: #### H H #### [facility] [address] [place] [address] Dr. Shayne Roldan MCH (RBC) [Entitic mass] 30.3 pg Normal 26.7-34.0 [facility] Comment on above: Performed By: #### H H #### [facility] [address] [place] [address] Dr. Shayne Roldan MCHC (RBC) [Mass/Vol] 32.7 g/dL Normal 29.9-35.2 [facility] Comment on above: Performed By: #### H H #### [facility] [address] [place] [address] Dr. Shayne Roldan MCV (RBC) [Entitic vol] 92.9 fL Normal 81.0-99.0 [facility] Comment on above: Performed By: #### H H #### [facility] [address] [place] [address] Dr. Shayne Roldan PLT 367 103/ul Normal 150-450 [facility] Comment on above: Performed By: #### H H #### [facility] [address] [place] [address] Dr. Shayne Roldan RBC 4.78 106/ul Normal 4.20-5.40 [facility] Comment on above: Performed By: #### H H #### [facility] [address] [place] [address] Dr. Shayne Roldan WBC 9.9 103/ul Normal 4.0-11.0 [facility] Comment on above: Performed By: #### H H #### [facility] [address] [place] [address] Dr. Shayne Roldan MAGNESIUMon 02-25-2023 Magnesium [Mass/Vol] 1.6 mg/dL Critically low 1.8-2.4 [facility] Comment on above: Performed By: #### M G, RENAL, URIC #### [facility] [address] [place] [address] Dr. Shayne Roldan RENAL FUNCTION PANELon 02-25 Albumin [Mass/Vol] 3.4 g/dL Normal 3.4-5.0 [facility] Comment on above: Performed By: #### M G, RENAL, URIC #### [facility] [address] [place] [address] Dr. Shayne Roldan Calcium [Mass/Vol] 8.7 mg/dL Normal 8.5-10.1 [facility] Comment on above: Performed By: #### M G, RENAL, URIC #### [facility] [address] [place] [address] Dr. Shayne Roldan Chloride [Moles/Vol] 104 mmol/L Normal 98-107 [facility] Comment on above: Performed By: #### M G, RENAL, URIC #### [facility] [address] [place] [address] Dr. Shayne Roldan CO2 [Moles/Vol] 25.9 mmol/L Normal 21.0-32.0 [facility] Comment on above: Performed By: #### M G, RENAL, URIC #### [facility] [address] [place] [address] Dr. Shayne Roldan Creatinine [Mass/Vol] 1.19 mg/dL Critically high 0.55-1.02 [facility] Comment on above: Performed By: #### M G, RENAL, URIC #### [facility] [address] [place] [address] Dr. Shayne Roldan EGFR-AF [place] 55 mL/min/1.73m2 Critically low >=60 [facility] Comment on above: Performed By: #### M G, RENAL, URIC #### [facility] [address] [place] [address] Dr. Shayne Roldan EGFR-NON AF [place] 45 mL/min/1.73m2 Critically low >=60 [facility] Comment on above: Performed By: #### M G, RENAL, URIC #### [facility] [address] [place] [address] Dr. Shayne Roldan Glucose [Mass/Vol] 193 mg/dL Critically high 74-106 [facility] Comment on above: Performed By: #### M G, RENAL, URIC #### [facility] [address] [place] [address] Dr. Shayne Roldan Phosphate [Mass/Vol] 3.2 mg/dL Normal 2.6-4.7 [facility] Comment on above: Performed By: #### M G, RENAL, URIC #### [facility] [address] [address] [address] Shayne Roldan Potassium [Moles/Vol] 3.9 mmol/L Normal 3.5-5.1 [facility] Comment on above: Performed By: #### M G, RENAL, URIC #### [facility] [address] [place] [address] Dr. Shayne Roldan Sodium [Moles/Vol] 140 mmol/L Normal 136-145 [facility] Comment on above: Performed By: #### M G, RENAL, URIC #### [facility] [address] [place] [address] Dr. Shayne Roldan Urea nitrogen [Mass/Vol] 17.0 mg/dL Normal 7.0-18.0 [facility] Comment on above: Performed By: #### M G, RENAL, URIC #### [facility] [address] [place] [address] Dr. Shayne Roldan UA RANDOM W/MICROSCOPICon BACTERIA TRACE Abnormal NONE SEEN [facility] Comment on above: Performed By: #### M G, RENAL, URIC #### [facility] [address] [place] [address] Dr. Shayne Roldan Bilirubin Ql (U) Negative Normal NEGATIVE [facility] Comment on above: Performed By: #### M G, RENAL, URIC #### [facility] [address] [place] [address] Dr. Shayne Roldan CAST NONE SEEN Normal NONE SEEN [facility] Comment on above: Performed By: #### M G, RENAL, URIC #### [facility] [address] [place] [address] Dr. Shayne Roldan Clarity (U) CLEAR Normal CLEAR [facility] Comment on above: Performed By: #### M G, RENAL, URIC #### [facility] [address] [place] [address] Dr. Shayne Roldan Color (U) LT. YELLOW Normal YELLOW [facility] Comment on above: Performed By: #### M G, RENAL, URIC #### [facility] [address] [place] [address] Dr. Shayne Roldan Crystals LM Nom (Urine sed) NONE SEEN Normal NONE SEEN [facility] Comment on above: Performed By: #### M G, RENAL, URIC #### [facility] [address] [address] [address] Shayne Roldan Epithelial cells LM Ql (Urine sed) RARE Normal NONE SEEN /RARE [facility] Comment on above: Performed By: #### M G, RENAL, URIC #### [facility] [address] [address] [address] Shayne Roldan Glucose Ql (U) Negative Normal NEGATIVE [facility] Comment on above: Performed By: #### M G, RENAL, URIC #### [facility] [address] [address] [address] Shayne Roldan Hemoglobin Ql (U) Negative Normal NEGATIVE [facility] Comment on above: Performed By: #### M G, RENAL, URIC #### [facility] [address] [place] [address] Dr. Shayne Roldan Ketones Ql (U) Negative Normal NEGATIVE [facility] Comment on above: Performed By: #### M G, RENAL, URIC #### [facility] [address] [place] [address] Dr. Shayne Roldan LEUKOCYTES Negative Normal NEGATIVE [facility] Comment on above: Performed By: #### M G, RENAL, URIC #### [facility] [address] [address] [address] Shayne Roldan MUCOUS NONE SEEN Normal NONE SEEN [facility] Comment on above: Performed By: #### M G, RENAL, URIC #### [facility] [address] [address] [address] Shayne Roldan Nitrite Ql (U) Negative Normal NEGATIVE [facility] Comment on above: Performed By: #### M G, RENAL, URIC #### [facility] [address] [place] [address] Dr. Shayne Roldan pH (U) 5.0 [pH] Normal 5-9 [facility] Comment on above: Performed By: #### M G, RENAL, URIC #### [facility] [address] [place] [address] Dr. Shayne Roldan RBC 0-2 Normal 0-2 [facility] Comment on above: Performed By: #### M G, RENAL, URIC #### [facility] [address] [place] [address] Dr. Shayne Roldan SPEC GRAVITY 1.025 Normal 1.005-<=1.[address] [facility] Comment on above: Performed By: #### M G, RENAL, URIC #### [facility] [address] [place] [address] Dr. Shayne Roldan UA PROTEIN Negative Normal NEGATIVE/ TRACE [facility] Comment on above: Performed By: #### M G, RENAL, URIC #### [facility] [address] [place] [address] Dr. Shayne Roldan Urobilinogen Qn (U) 0.2 {Rogelio'U}/dL Normal 0.2 - 1. 0 [facility] Comment on above: Performed By: #### M G, RENAL, URIC #### [facility] [address] [place] [address] Dr. Shayne Roldan WBC 0-2 Abnormal NONE SEEN [facility] Comment on above: Performed By: #### M G, RENAL, URIC #### [facility] [address] [place] [address] Dr. Shayne Roldan URIC ACID SERUMon 02-25-2023 Urate [Mass/Vol] 6.1 mg/dL Critically high 2.6-6.0 [facility] Comment on above: Performed By: #### M G, RENAL, URIC #### [facility] [address] [place] [address] Dr. Shayne Roldan URINE T PROTEIN CREAT RATIOo n 02-25-2023 Protein (U) [Mass/Vol] 13.0 mg/dL Critically high <=12.0 [facility] Comment on above: Performed By: #### M G, RENAL, URIC #### [facility] [address] [place] [address] Dr. Shayne Roldan UR PROT CREAT RAT 0.16 Normal [facility] Comment on above: Performed By: #### M G, RENAL, URIC #### [facility] [address], [place] [address] Dr. Shayne Roldan URINE CREAT 83.60 mg/dL Normal 20.00-300.00 [facility] Comment on above: Performed By: #### M G, RENAL, URIC #### [facility] [address] [place], [place] [address] Dr. Shayne Roldan VITAMIN D 25 OHon 02-25-2023 VIT D 25-OH 41.6 ng/mL Normal [facility] Comment on above: Performed By: #### M G, RENAL, URIC #### [facility] [address], [place] [address] Dr. Shayne Roldan VIT D RANGES SEE BELOW Normal [facility] Comment on above: Result Comment: <20 ng/mL Vit D deficient 20 - <30 ng/mL Vit D insufficient 30 - 100 ng/mL Vit D sufficient >100 ng/mL Potential Toxicity Performed By: #### M G, RENAL, URIC #### [facility] [address], [place] [address] Dr. Shayne Roldan XR CHEST 2 Von [...] BRITTANY GALDAMEZ Date: 2023-02-22 16:15 Normal [facility] MAMM SCREEN 3D PRATEEK CADon 12-15-2022 MG MAMM SCREEN 3D PRATEEK CAD Patient: DIANA CHAMPION Exam Date: 12/15/2022 : 1955 Gender:F Ordering : DR JACK HALL . Admission #: [id number] Family : Order #: [id number] CLICK HERE TO VIEW EXAM RADIOLOGY REPORT PROCEDURE: MAMMOGRAM SCREENING 3D BILATERAL CAD COMPARISON: MG MAMM SCREEN 3D PRATEEK CAD, 11/26/2021. INDICATIONS: Calculator Name NCI Breast Cancer Risk Assessment Tool 5 Year Breast Cancer Risk 1.20% Lifetime Breast Cancer Risk 4.40% Personal Breast Cancer No Personal Ovarian Cancer No Treatments Excision, radiation, chemotherapy Family Cancers None LOCATION: The [facility] BREAST COMPOSITION: Almost entirely fatty. FINDINGS: [...] Walters MD on 12/15/2022 at 10:51 Normal [facility] XR DEXA BONE DENSITYon 12-15 [...] by: STEPH GRANADOS Date: 2022-12-15 09:50 Normal [facility] Fran 12-08-2022 L - -------- Specimen: [id number] Received: 12/08/22 Status: CELIA Kay Num: [id number] Spec Type: Surgical Subm Dr: Gato Domingo MD Tissues: A Colon Biopsy (DESC COL POLYP) Procedures: HE/2, Gross/Micro L4 -------- Age/ Patient Sex Location Account Attending Physician -------- Diaan Champion 67/F [id number] Gato Domingo MD -------- SPEC NUM: [id number] RECD: 12/08/22 STATUS: CELIA MARIO NUM: [id number] KENDRA: 12/08/[address] [facility] [address]: Gato Domingo MD ENTERED: 12/08/22 [facility] DR: SPEC TYPE: Surgical DEPT: S ENTERED BY: [id number] RECV BY: [id number] ORDERED: HE/2, Gross/Micro L4 ORDERED: HE/2, Gross/Micro [...] support the above pathologic diagnosis. CPT Codes 10350 -------- -------- Specimen: [id number] Received: 12/08/22 Status: CELIA Kay Num: [id number] Spec Type: Surgical Subm Dr: Gato Domingo MD Tissues: A Colon Biopsy (DESC COL POLYP) Procedures: FLORENCIA/Evonne, Gross/Micro L4 -------- Patient: ChampionDiana [id number] (Continued) -------- Signed (signature on file) Eunice Rosa MD 12/09/[address] [facility] PAP ACOG PANEL 2: 30 to 65on 11-16-2022 . . Normal [facility] Comment on above: Performed By: #### [id number] #### [facility] [address] [address] [address] Shayne Roldan Age Gdln ACOG Testing Comment Normal [facility] Comment on above: Result Comment: <21 or >65 or no age provided Performed By: #### [id number] #### [facility] [address] [place] [address] Dr. Shayne Roldan DIAGNOSIS: Comment [facility] Comment on above: Result Comment: NEGA TIVE FOR INTRAEPITHELIAL LESION OR MALIGNANCY. Performed By: #### [id number] #### [facility] [address] [place] [address] Dr. Shayne Roldan Methodology: Comment [facility] Comment on above: Result Comment: This liquid based ThinPrep(R) pap test was screened with the use of an image guided system. Performed By: #### 4 [id number] #### [facility] [address] [place] [address] Dr. Shayne Roldan Note: Comment [facility] Comment on above: Result Comment: The Pap smear is a screening test designed to aid in the detection of premalignant and malignant conditions of the uterine cervix. It is not a diagnostic procedure and should not be used as the sole means of detecting cervical cancer. Both false-positive and false-negative reports do occur. . Performed By: #### [id number] #### [facility] [address] [place] [address] Dr. Shayne Roldan Performed by: Comment [facility] Comment on above: Result Comment: Onur Aguilar [employer] Consultant (ASCP) Performed By: #### 4 [id number] #### [facility] [address] [place] [address] Dr. Shayne Roldan Specimen adequacy: Comment [facility] Comment on above: Result Comment: Sati sfactory for evaluation. Endocervical and/or squamous metaplastic cells (endocervical component) are present. Performed By: #### 4 [id number] #### [facility] [address] [address] [address] Shayne Roldan RENAL FUNCTION PANELon 08-19 Albumin [Mass/Vol] 3.4 g/dL Normal 3.4-5.0 [facility] Comment on above: Performed By: #### M G, RENAL, URIC #### [facility] [address] [address] [address] Shayne Roldan Calcium [Mass/Vol] 8.4 mg/dL Critically low 8.5-10.1 Th [facility] Comment on above: Performed By: #### M G, RENAL, URIC #### [facility] [address] [place] [address] Dr. Shayne Roldan Chloride [Moles/Vol] 103 mmol/L Normal 98-107 [facility] Comment on above: Performed By: #### M G, RENAL, URIC #### [facility] [address] [address] [address] Shayne Roldan CO2 [Moles/Vol] 27.8 mmol/L Normal 21.0-32.0 [facility] Comment on above: Performed By: #### M G, RENAL, URIC #### [facility] [address] [address] [address] Shayne Roldan Creatinine [Mass/Vol] 1.02 mg/dL Normal 0.55-1.02 [facility] Comment on above: Performed By: #### M G, RENAL, URIC #### [facility] [address] [address] [address] Shayne Roldan EGFR-AF [place] >60 Normal >=60 [facility] Comment on above: Performed By: #### M G, RENAL, URIC #### [facility] [address] [address] [address] Shayne Roldan EGFR-NON AF [place] 54 mL/min/1.73m2 Critically low >=60 [facility] Comment on above: Performed By: #### M G, RENAL, URIC #### [facility] [address] [place] [address] Dr. Shayne Roldan Glucose [Mass/Vol] 110 mg/dL Critically high 74-106 [facility] Comment on above: Performed By: #### M G, RENAL, URIC #### [facility] [address] [place] [address] Dr. Shayne Roldan Phosphate [Mass/Vol] 2.3 mg/dL Critically low 2.6-4.7 [facility] Comment on above: Performed By: #### M G, RENAL, URIC #### [facility] [address] [place] [address] Dr. Shayne Roldan Potassium [Moles/Vol] 3.2 mmol/L Critically low 3.5-5.1 [facility] Comment on above: Performed By: #### M G, RENAL, URIC #### [facility] [address] [place] [address] Dr. Shayne Roldan Sodium [Moles/Vol] 138 mmol/L Normal 136-145 [facility] Comment on above: Performed By: #### M G, RENAL, URIC #### [facility] [address] [place] [address] Dr. Shayne Roldan Urea nitrogen [Mass/Vol] 14.0 mg/dL Normal 7.0-18.0 [facility] Comment on above: Performed By: #### M G, RENAL, URIC #### [facility] [address] [place] [address] Dr. Shayne Roldan PTH INTACTon 08-06-2022 PTH, Intact 40 pg/mL Normal 15-65 [facility] Comment on above: Performed By: #### M G, RENAL, URIC #### [facility] [address] [place] [address] Dr. Shayne Roldan HEMOGRAM AND PLATELon 2021 Hematocrit (Bld) [Volume fraction] 39.8 % Normal 36.0-48.0 [facility] Comment on above: Performed By: #### M G, RENAL, URIC #### [facility] [address] [address] [address] Shayne Roldan Hemoglobin (Bld) [Mass/Vol] 13.4 g/dL Normal 12.0-16.0 [facility] Comment on above: Performed By: #### M G, RENAL, URIC #### [facility] [address] [address] [address] Shayne Roldan MCH (RBC) [Entitic mass] 30.5 pg Normal 26.7-34.0 [facility] Comment on above: Performed By: #### M G, RENAL, URIC #### [facility] [address] [address] [address] Shayne Roldan MCHC (RBC) [Mass/Vol] 33.7 g/dL Normal 29.9-35.2 [facility] Comment on above: Performed By: #### M G, RENAL, URIC #### [facility] [facility] [address] [place] [address] Dr. Shayne Roldan MCV (RBC) [Entitic vol] 90.5 fL Normal 81.0-99.0 [facility] Comment on above: Performed By: #### M G, RENAL, URIC #### [facility] [address] [address] [address] Shayne Roldan PLT 299 103/ul Normal 150-450 [facility] Comment on above: Performed By: #### M G, RENAL, URIC #### [facility] [address] [address] [address] Shayne Roldan RBC 4.40 106/ul Normal 4.20-5.40 [facility] Comment on above: Performed By: #### M G, RENAL, URIC #### [facility] [address] [place] [address] Dr. Shayne Roldan WBC 8.8 103/ul Normal 4.0-11.0 [facility] Comment on above: Performed By: #### M G, RENAL, URIC #### [facility] [address] [place] [address] Dr. Shayne Roldan MAGNESIUMon 08-05-2022 Magnesium [Mass/Vol] 1.5 mg/dL Critically low 1.8-2.4 [facility] Comment on above: Performed By: #### M G, RENAL, URIC #### [facility] [address] [address] [address] Shayne Roldan RENAL FUNCTION PANELon 08-05 Albumin [Mass/Vol] 3.5 g/dL Normal 3.4-5.0 [facility] Comment on above: Performed By: #### M G, RENAL, URIC #### [facility] [address] [address] [address] Shayne Roldan Calcium [Mass/Vol] 8.4 mg/dL Critically low 8.5-10.1 [facility] Comment on above: Performed By: #### M G, RENAL, URIC #### [facility] [address] [place] [address] Dr. Shayne Roldan Chloride [Moles/Vol] 101 mmol/L Normal 98-107 [facility] Comment on above: Performed By: #### M G, RENAL, URIC #### [facility] [address] [place] [address] Dr. Shayne Roldan CO2 [Moles/Vol] 29.5 mmol/L Normal 21.0-32.0 [facility] Comment on above: Performed By: #### M G, RENAL, URIC #### [facility] [address] [place] [address] Dr. Shayne Roldan Creatinine [Mass/Vol] 1.04 mg/dL Critically high 0.55-1.02 [facility] Comment on above: Performed By: #### M G, RENAL, URIC #### [facility] [address] [place] [address] Dr. Shayne Roldan EGFR-AF [place] >60 Normal >=60 [facility] Comment on above: Performed By: #### M G, RENAL, URIC #### [facility] [address] [place] [address] Dr. Shayne Roldan EGFR-NON AF [place] 53 mL/min/1.73m2 Critically low >=60 [facility] Comment on above: Performed By: #### M G, RENAL, URIC #### [facility] [address] [address] [address] Shayne Roldan Glucose [Mass/Vol] 92 mg/dL Normal 74-106 [facility] Comment on above: Performed By: #### M G, RENAL, URIC #### [facility] [address] [address] [address] Shayne Roldan Phosphate [Mass/Vol] 2.4 mg/dL Critically low 2.6-4.7 [facility] Comment on above: Performed By: #### M G, RENAL, URIC #### [facility] [address] [address] [address] Shayne Roldan Potassium [Moles/Vol] 2.8 mmol/L Critically low 3.5-5.1 [facility] Comment on above: Performed By: #### M G, RENAL, URIC #### [facility] [address] [address] [address] Shayne Roldan Sodium [Moles/Vol] 137 mmol/L Normal 136-145 [facility] Comment on above: Performed By: #### M G, RENAL, URIC #### [facility] [address] [address] [address] Shayne Roldan Urea nitrogen [Mass/Vol] 10.0 mg/dL Normal 7.0-18.0 [facility] Comment on above: Performed By: #### M G, RENAL, URIC #### [facility] [address] [address] [address] Shayne Roldan UA RANDOM W/MICROSCOPICon BACTERIA SMALL Abnormal NONE SEEN [facility] Comment on above: Performed By: #### U AMIC #### [facility] [address] [address] [address] Shayne Roldan Bilirubin Ql (U) Negative Normal NEGATIVE [facility] Comment on above: Performed By: #### U AMIC #### [facility] [address] [place] [address] Dr. Shayne Roldan CAST NONE SEEN Normal NONE SEEN [facility] Comment on above: Performed By: #### U AMIC #### [facility] [address] [address] [address] Shayne Roldan Clarity (U) CLEAR Normal CLEAR [facility] Comment on above: Performed By: #### U AMIC #### [facility] [address] [address] [address] Shayne Roldan Color (U) LT. YELLOW Normal YELLOW [facility] Comment on above: Performed By: #### U AMIC #### [facility] [address] [address] [address] Shayne Roldan Crystals LM Nom (Urine sed) NONE SEEN Normal NONE SEEN [facility] Comment on above: Performed By: #### U AMIC #### [facility] [address] [address] [address] Shayne Roldan Epithelial cells LM Ql (Urine sed) FEW Abnormal NONE SEEN /RARE [facility] Comment on above: Performed By: #### U AMIC #### [facility] [address] [place] [address] Dr. Shayne Roldan Glucose Ql (U) Negative Normal NEGATIVE The [facility] Comment on above: Performed By: #### U AMIC #### [facility] [address] [place] [address] Dr. Shayne Roldan Hemoglobin Ql (U) Negative Normal NEGATIVE [facility] Comment on above: Performed By: #### U AMIC #### [facility] [address] [place] [address] Dr. Shayne Roldan Ketones Ql (U) Negative Normal NEGATIVE [facility] Comment on above: Performed By: #### U AMIC #### [facility] [address] [place] [address] Dr. Shayne Roldan LEUKOCYTES TRACE Abnormal NEGATIVE [facility] Comment on above: Performed By: #### U AMIC #### [facility] [address] [place] [address] Dr. Shayne Roldan MUCOUS NONE SEEN Normal NONE SEEN [facility] Comment on above: Performed By: #### U AMIC #### [facility] [address] [place] [address] Dr. Shayne Roldan Nitrite Ql (U) Negative Normal NEGATIVE [facility] Comment on above: Performed By: #### U AMIC #### [facility] [address] [address] [address] Shayne Roldan pH (U) 6.0 [pH] Normal 5-9 [facility] Comment on above: Performed By: #### U AMIC #### [facility] [address] [address] [address] Shayne Roldan RBC NONE SEEN Abnormal 0-2 [facility] Comment on above: Performed By: #### U AMIC #### [facility] [address] [address] [address] Shayne Roldan SPEC GRAVITY <=1.005 Abnormal 1.005-<=1.[address] [facility] Comment on above: Performed By: #### U AMIC #### [facility] [address] [address] [address] Shayne Roldan UA PROTEIN Negative Normal NEGATIVE/ TRACE [facility] Comment on above: Performed By: #### U AMIC #### [facility] [address] [address] [address] Shanye Roldan Urobilinogen Qn (U) 0.2 {Rogelio'U}/dL Normal 0.2 - 1. 0 [facility] Comment on above: Performed By: #### U AMIC #### [facility] [address] [place] [address] Dr. Shayne Roldan WBC 5-10 Abnormal NONE SEEN [facility] Comment on above: Performed By: #### U AMIC #### [facility] [address] [place] [address] Dr. Shayne Roldan URIC ACID SERUMon 08-05-2022 Urate [Mass/Vol] 6.5 mg/dL Critically high 2.6-6.0 [facility] Comment on above: Performed By: #### M G, RENAL, URIC #### [facility] [address] [address] [address] Shayne Roldan URINE T PROTEIN CREAT RATIOo n 08-05-2022 Protein (U) [Mass/Vol] 4.8 mg/dL Normal <=12.0 [facility] Comment on above: Performed By: #### U RTPCR #### [facility] [address] [address] [address] Shayne Roldan UR PROT CREAT RAT 0.09 Normal [facility] Comment on above: Performed By: #### U RTPCR #### [facility] [address] [address] [address] Shayne Roldan URINE CREAT 52.65 mg/dL Normal 20.00-300.00 [facility] Comment on above: Performed By: #### U RTPCR #### [facility] [address] [address] [address] Shayne Roldan VITAMIN D 25 OHon 08-05-2022 VIT D 25-OH 38.9 ng/mL Normal [facility] Comment on above: Performed By: #### M G, RENAL, URIC #### [facility] [address] [place] [address] Dr. Shayne Roldan VIT D RANGES SEE BELOW Normal [facility] Comment on above: Result Comment: <20 ng/mL Vit D deficient 20 - <30 ng/mL Vit D insufficient 30 - 100 ng/mL Vit D sufficient >100 ng/mL Potential Toxicity Performed By: #### M G, RENAL, URIC #### [facility] [address] [place] [address] Dr. Shayne Roldan IMMUNOGLOBULINS IGA/IGM/IGG/ IGE QUANTITAon 07-12-2022 Immunoglobulin A, Qn, Serum 295 mg/dL Normal 87-352 [facility] Comment on above: Result Comment: Perf ormed at: CB Performed By: #### M G, RENAL, URIC #### [facility] [address] [address] [address] Shayne Roldan Immunoglobulin E, Total 32 IU/mL Normal 6-495 [facility] Comment on above: Result Comment: Perf ormed at: BN Performed By: #### M G, RENAL, URIC #### [facility] [address] [address] [address] Shayne Roldan Immunoglobulin G, Qn, Serum 729 mg/dL Normal 586-1602 [facility] Comment on above: Result Comment: Perf ormed at: CB Performed By: #### M G, RENAL, URIC #### [facility] [address] [address] [address] Shayne Roldan Immunoglobulin M, Qn, Serum 75 mg/dL Normal 26-217 [facility] Comment on above: Result Comment: Perf ormed at: CB Performed By: #### M G, RENAL, URIC #### [facility] [address] [address] [address] Shayne Roldan Abstracton 07-08-2022 Abstract [id number] Nell Champion chioma Fan 1955 F Date Provider Department Center 07/08/2022 JOHANNA MEDINA [facility] Family History Problem Relation Age of Onset Heart failure Mother Heart disease Father Family Status - Relation Status Age at Mother Father Normal [facility] CBC AUTO DIFFon 07-05-2022 BASO # 0.1 103/ul Normal 0.0-0.1 [facility] Comment on above: Performed By: #### M G, RENAL, URIC #### [facility] [address] [address] [address] Shayne Roldan Basophils/100 WBC (Bld) 0.7 % Normal 0.2-2.0 [facility] Comment on above: Performed By: #### M G, RENAL, URIC #### [facility] [address] [address] [address] Shayne Roldan EO # 0.4 103/ul Normal 0.0-0.7 [facility] Comment on above: Performed By: #### M G, RENAL, URIC #### [facility] [address] [address] [address] Shayne Roldan Eosinophils/100 WBC (Bld) 4.4 % Normal 0.9-7.0 [facility] Comment on above: Performed By: #### M G, RENAL, URIC #### [facility] [address] [address] [address] Shayne Roldan Erythrocyte distribution width (RBC) [Ratio] 12.6 % Normal 11.0-15.0 [facility] Comment on above: Performed By: #### M G, RENAL, URIC #### [facility] [address] [place] [address] Dr. Shayne Roldan Hematocrit (Bld) [Volume fraction] 40.2 % Normal 36.0-48.0 [facility] Comment on above: Performed By: #### M G, RENAL, URIC #### [facility] [address] [place] [address] Dr. Shayne Roldan Hemoglobin (Bld) [Mass/Vol] 13.6 g/dL Normal 12.0-16.0 [facility] Comment on above: Performed By: #### M G, RENAL, URIC #### [facility] [address] [place] [address] Dr. Shayne Roldan IG # 0.07 10e3/ul Critically high 0.00-0.03 [facility] Comment on above: Performed By: #### M G, RENAL, URIC #### [facility] [address] [place] [address] Dr. Shayne Roldan IG % 0.8 % Critically high 0.0-0.5 [facility] Comment on above: Performed By: #### M G, RENAL, URIC #### [facility] [address] [place] [address] Dr. Shayne Roldan LYMPH # 2.3 103/ul Normal 1.2-3.8 [facility] Comment on above: Performed By: #### M G, RENAL, URIC #### [facility] [address] [place] [address] Dr. Shayne Roldan Lymphocytes/100 WBC (Bld) 24.7 % Normal 20.5-60.0 [facility] Comment on above: Performed By: #### M G, RENAL, URIC #### [facility] [address] [place] [address] Dr. Shayne Roldan MANUAL DIFF REQ NO Normal [facility] Comment on above: Performed By: #### M G, RENAL, URIC #### [facility] [address] [place] [address] Dr. Shayne Roldan MCH (RBC) [Entitic mass] 30.7 pg Normal 26.7-34.0 [facility] Comment on above: Performed By: #### M G, RENAL, URIC #### [facility] [address] [place] [address] Dr. Shayne Roldan MCHC (RBC) [Mass/Vol] 33.8 g/dL Normal 29.9-35.2 [facility] Comment on above: Performed By: #### M G, RENAL, URIC #### [facility] [address] [place] [address] Dr. Shayne Roldan MCV (RBC) [Entitic vol] 90.7 fL Normal 81.0-99.0 [facility] Comment on above: Performed By: #### M G, RENAL, URIC #### [facility] [address] [place] [address] Dr. Shayne Roldan MONO # 0.7 103/ul Normal 0.3-0.8 [facility] Comment on above: Performed By: #### M G, RENAL, URIC #### [facility] [address] [place] [address] Dr. Shayne Roldan Monocytes/100 WBC (Bld) 7.7 % Normal 1.7-12.0 [facility] Comment on above: Performed By: #### M G, RENAL, URIC #### [facility] [address] [place] [address] Dr. Shayne Roldan NEUT # 5.7 103/ul Normal 1.4-6.5 [facility] Comment on above: Performed By: #### M G, RENAL, URIC #### [facility] [address] [place] [address] Dr. Shayne Roldan Neutrophils/100 WBC (Bld) 61.7 % Normal 43.0-75.0 [facility] Comment on above: Performed By: #### M G, RENAL, URIC #### [facility] [address] [place] [address] Dr. Shayne Roldan Platelet mean volume (Bld) [Entitic vol] 8.8 fL Critically low 9.5-13.5 [facility] Comment on above: Performed By: #### M G, RENAL, URIC #### [facility] [address], [place] [address] Dr. Shayne Roldan PLT 279 103/ul Normal 150-450 [facility] Comment on above: Performed By: #### M G, RENAL, URIC #### [facility] [address], [place] [address] Dr. Shayne Roldan RBC 4.43 106/ul Normal 4.20-5.40 [facility] Comment on above: Performed By: #### M G, RENAL, URIC #### [facility] [address], [place] [address] Dr. Shayne Roldan WBC 9.1 103/ul Normal 4.0-11.0 [facility] Comment on above: Performed By: #### M G, RENAL, URIC #### [facility] [address], [place] [address] Dr. Shayne Roldan Cov[facility]-19 PCR [facility]on SARS-CoV-2 (COVID-19) RNA KAYLEE+probe Ql (Unsp spec) Not detected Normal NOT DETECTED [facility] Comment on above: Result Comment: This test is not yet approved or cleared by the [place] FDA. When there are no FDA-approved or cleared tests available, and other criteria are met, FDA can make tests available under an emergency access mechanism called an Emergency Use Authorization (EUA). The EUA for this test is supported by the [place] of Health and Human Service's (HHS's) declaration [...] By: #### M G, RENAL, URIC #### [facility] [address] [address] [address] Shayne Roldan XR CHEST 2 Von [...] NARDA LONDONO Date: 2022-06-08 19:58 Normal [facility] Covid-19 PCR ([facility])on SARS-CoV-2 (COVID-19) RNA KAYLEE+probe Ql (Unsp spec) Not detected Normal NOT DETECTED [facility] Comment on above: Result Comment: This test is not yet approved or cleared by the [place] FDA. When there are no FDA-approved or cleared tests available, and other criteria are met, FDA can make tests available under an emergency access mechanism called an Emergency Use Authorization (EUA). The EUA for this test is supported by the [place] of Health and Human Service's (HHS's) declaration [...] consistent with SARS-CoV-2. Performed By: #### [facility] #### [facility] [address], [place] [address] Dr. Shayne Roldan DEXA AXIALon 03-01-2022 DEXA AXIAL [facility] Department of Radiology [address] [place] [id number] Patient Name: DIANA CHAMPION : 1955 [...] characteristics. Electronically signed: Luzma Fernandez. Transcribed by: [email or web address], User Resident: Electronically Signed by: LUZMA FERNANDEZ @ 03/02/2022 01:07 PM Normal [facility] SCOLIOSIS 2 [facility] 02-24-2022 SCOLIOSIS 2 [facility] Department of Radiology [address] [place] [id number] Patient Name: DIANA CHAMPION : 1955 Sex: F Age: Race: White Pt. Location: Patient Status: D Ordered Date: 02/24/2022 1:25:00 PM Completed Date: 02/24/2022 01:44 PM Requesting Provider: CINDA ANTONIO Attending Provider: Report Copy To: Signs & Symptoms: M43.10 Spondylolisthesis, site unspecified I10 History: Comments: Views (X-RAY, SCOLIOSIS): PA, Lateral evaluate Exam: SCOLIOSIS 2 [facility] Scoliosis. Worsening pain. Frontal and lateral thoracolumbar spine IMPRESSION: 1. Diffuse disc disease and facet arthritis. Right convex mid lumbar curvature measuring 16 degrees. Interbody fusion hardware lower lumbar spine. Electronically signed: Hugo Lynn. Transcribed by: [email or web address], User Resident: Electronically Signed by: HUGO LYNN @ 02/26/2022 11:07 AM Normal [facility] Comment on above: Order Comment: Views (X-RAY, SCOLIOSIS): PA, Lateral evaluate CT LUMBAR SPINE W CONTRASTon 01-24-2022 CT LUMBAR SPINE W CONTRAST [facility] Department of Radiology [address] [place] [phone] Patient Name: DIANA CHAMPION : 1955 [...] L1-2. Electronically signed: Gaurang Lawrence. Transcribed by: [email or web address], User Resident: Electronically Signed by: GAURANG LAWRENCE @ 01/26/2022 08:58 AM Normal [facility] Comment on above: Order Comment: , CT MYELOGRAM>PAPER WORK IN CHART LUMBAR MYELOGRAMon 2 LUMBAR MYELOGRAM [facility] Department of Radiology [address] [place] [phone] Patient Name: DIANA CHAMPION : 1955 Sex: F Age: Race: White Pt. Location: Patient Status: O Ordered Date: 01/09/2022 9:00:00 AM Completed Date: 01/24/2022 02:37 PM Requesting Provider: JOO LINN Attending Provider: JOO LINN Report Copy To: UNKNOWN, PHYSICIAN Signs & Symptoms: M54.16 Radiculopathy, lumbar region I10 History: Jessica Is patient on thinners? 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 Consent was obtained. Timeout: [place] protocol timeout verification performed. PROCEDURE: Estimated blood [...] report. Electronically signed: Greg Marlow. Transcribed by: [email or web address], User Resident: DEBBIE JI Electronically Signed by: GREG MARLOW @ 01/24/2022 04:07 PM I personally read this/these film(s) with this resident Normal [facility] Comment on above: Order Comment: , CT MYELOGRAM> PAPER WORK SCANNED IN CHART , CT MYELOGRAM> PAPER WORK SCANNED IN CHART , , , Ordering Provider - JOO LINN MD , HIP LEFT 1 OR 2 VWS WITH PEL VISon 01-06-2022 HIP LEFT 1 OR 2 VWS WITH PELVIS [facility] Department of Radiology [address] [place] [id number] Patient Name: DIANA CHAMPION : 1955 Sex: F Age: Race: White Pt. Location: Patient Status: D Ordered Date: 12/21/2021 10:45:00 AM Completed Date: 01/06/2022 01:24 PM Requesting Provider: JOO LINN Attending Provider: JOO LINN Report Copy To: Signs & Symptoms: Z96.642 Presence of left artificial hip joint I10 History: [place] Comments: Evaluate Exam: HIP LEFT 1 OR 2 VWS WITH PELVIS HIP LEFT 1 OR 2 VWS WITH PELVIS HISTORY: Hip replacement, follow-up. COMPARISON: None. IMPRESSION: 1. Redemonstrated left hip prosthesis without visible complication. 2. Advanced right hip arthritis without significant change with advanced joint space narrowing. Unchanged lumbosacral fusion hardware. Electronically signed: Joe Matthew. Transcribed by: [email or web address], User Resident: Electronically Signed by: JOE MATTHEW @ 01/09/2022 04:45 PM Normal [facility] Comment on above: Order Comment: Evalu ate Vital Signs Date Time Vital Sign Value Performing Clinician Facility 08-17-2023 09:20-0400 Body height 165.1 cm [facility] Other [facility] Other 08-17-2023 09:20-0400 Body mass index (BMI) [Ratio] 38.1 kg/m2 [facility] Other 08-17-2023 09:20-0400 Body temperature 98.8 [degF] [facility] Other [facility] Other 08-17-2023 09:20-0400 Body weight 103.87 kg [facility] Other [facility] Other 08-17-2023 09:20-0400 Diastolic blood pressure 85 mm[Hg] [facility] Other [facility] Other 08-17-2023 09:20-0400 Respiratory rate 18 /min [facility] Other [facility] Other 08-17-2023 09:20-0400 SaO2% (BldA) [Mass fraction] 94 % [facility] Other [facility] Other 08-17-2023 09:20-0400 Systolic blood pressure 151 mm[Hg] [facility] Other [facility] Other 03-02-2023 10:00-0400 Body height 165.1 cm [facility] Other [facility] Other 03-02-2023 10:00-0400 Body mass index (BMI) [Ratio] 37.29 kg/m2 [facility] Other [facility] Other 03-02-2023 10:00-0400 Body temperature 98.9 [degF] [facility] Other [facility] Other 03-02-2023 10:00-0400 Body weight 101.65 kg [facility] Other [facility] Other 03-02-2023 10:00-0400 Diastolic blood pressure 76 mm[Hg] [facility] Other [facility] Other 03-02-2023 10:00-0400 Respiratory rate 20 /min [facility] Other [facility] Other 03-02-2023 10:00-0400 SaO2% (BldA) [Mass fraction] 96 % [facility] Other [facility] Other 03-02-2023 10:00-0400 Systolic blood pressure 136 mm[Hg] [facility] Other [facility] Other 12-08-2022 09:30-0500 Diastolic blood pressure 59 mm[Hg] MD Shaikh Ohara Work Phone: [facility] 12-08-2022 09:30-0500 Heart rate 55 /min MD Shaikh Ohara Work Phone: [facility] 12-08-2022 09:30-0500 Respiratory rate 16 /min MD Shaikh Ohara Work Phone: [facility] 12-08-2022 09:30-0500 SaO2% (BldA) [Mass fraction] 96 % MD Shaikh Ohara Work Phone: [facility] 12-08-2022 09:30-0500 Systolic blood pressure 112 mm[Hg] MD Shaikh Ohara Work Phone: [facility] 12-08-2022 06:54-0500 Body height 162.56 cm MD Shaikh Ohara Work Phone: [facility] 12-08-2022 06:54-0500 Body temperature 98.2 [degF] MD Shaikh Ohara Work Phone: [facility] 12-08-2022 06:54-0500 Body weight 104.32 kg MD Shaikh Ohara Work Phone: [facility] 08-09-2022 11:00-0400 Body height 165.1 cm Herberth Joana Other [facility] Other 08-09-2022 11:00-0400 Body mass index (BMI) [Ratio] 37.87 kg/m2 Herberth Joana Other [facility] Other 08-09-2022 11:00-0400 Body temperature 97.2 [degF] Herberth Joana Other [facility] Other 08-09-2022 11:00-0400 Body weight 103.24 kg Herberth Joana Other [facility] Other 08-09-2022 11:00-0400 Diastolic blood pressure 88 mm[Hg] Herberth Joana Other [facility] Other 08-09-2022 11:00-0400 Respiratory rate 20 /min Herberth Joana Other [facility] Other 08-09-2022 11:00-0400 SaO2% (BldA) [Mass fraction] 95 % Herberth Joana Other [facility] Other 08-09-2022 11:00-0400 Systolic blood pressure 133 mm[Hg] Herberth Joana Other [facility] Other 11-17-2021 10:40-0500 Body height 165.1 cm Herberth Joana Other [facility] Other 11-17-2021 10:40-0500 Body mass index (BMI) [Ratio] 37.97 kg/m2 Herberth Joana Other [facility] Other 11-17-2021 10:40-0500 Body temperature 97.8 [degF] Herberth Joana Other [facility] Other 11-17-2021 10:40-0500 Body weight 103.51 kg Herberth Joana Other [facility] Other 11-17-2021 10:40-0500 Diastolic blood pressure 70 mm[Hg] Herberth Joana Other [facility] Other 11-17-2021 10:40-0500 Respiratory rate 18 /min Herberth Joana Other [facility] Other 11-17-2021 10:40-0500 SaO2% (BldA) [Mass fraction] 94 % Herberth Joana Other [facility] Other 11-17-2021 10:40-0500 Systolic blood pressure 130 mm[Hg] Herberth Rivera Other [facility] Other 08-30-2021 13:15-0400 Body height 165.1 cm Rena Ginty Other [facility] Other 08-30-2021 13:15-0400 Body mass index (BMI) [Ratio] 36.61 kg/m2 Rena Ginty Other [facility] Other 08-30-2021 13:15-0400 Body temperature 98.7 [degF] Rena Ginty Other [facility] Other 08-30-2021 13:15-0400 Body weight 99.79 kg Rena Ginty Other [facility] Other 08-30-2021 13:15-0400 SaO2% (BldA) [Mass fraction] 90 % Rena Ginty Other [facility] Other Encounters Encounter Date Encounter Type Care Provider Facility Start: 02-26-2024 End: 02-26-2024 ambulatory SHAIKH LEV Not Available Start: 02-19-2024 End: 02-20-2024 ambulatory Jayshree Vargas MD Facility[facility] Start: 02-15-2024 End: 02-15-2024 ambulatory ROSHNI LEDESMA Not Available Start: 01-25-2024 End: 01-25-2024 ambulatory SHAIKH LEV Not Available Start: 12-28-2023 End: 12-28-2023 ambulatory SHAIKH LEV Not Available Start: 12-18-2023 End: 12-19-2023 ambulatory Jayshree Vargas MD Facility: [facility] Start: 12-05-2023 End: 12-05-2023 ambulatory SHAIKH LEV Not Available Start: 11-13-2023 End: 11-14-2023 ambulatory Jayshree Vargas MD Facility: [place] [facility] Start: 11-02-2023 End: 11-02-2023 ambulatory SHAIKH LEV Not Available Start: 10-09-2023 End: 10-10-2023 [facility] Start: 10-04-2023 End: 10-04-2023 ambulatory SHAIKH CARLYD Not Available Start: 09-07-2023 End: 09-07-2023 ambulatory Herberth Joana Other [facility] Other Start: 09-07-2023 Telephone encounter Herberth Joana [facility] Start: 08-28-2023 End: 08-28-2023 ambulatory Herberth Joana Other [facility] Other Start: 08-28-2023 Telephone encounter Herberth Joana [facility] Start: 08-21-2023 End: 08-22-2023 ambulatory Jayshree Vagras MD Facility: [place] Start: 08-17-2023 End: 08-17-2023 ambulatory Herberth Joana Other [facility] Other Start: 08-17-2023 Office outpatient visit 25 minutes Herberth Joana [facility] Start: 05-08-2023 End: 05-08[facility] Start: 04-04-2023 End: 04-04-2023 ambulatory SHAIKH Dimitry OHARA Facility:[facility] Start: 03-24-2023 End: 03-25-[address] STEPH GRANADOS Facility:[facility] Start: 03-23-2023 ambulatory JOO LAWRENCE [facility] Start: 03-02-2023 End: 03-02-2023 ambulatory Herberth Joana Other [facility] Other Start: 03-02-2023 Office outpatient visit 25 minutes Herberth Joana [facility] Start: 02-25-2023 End: 02-26-2023 ambulatory HERBERTH JOANA Facility:[facility] Start: 02-22-2023 End: 02-23-2023 ambulatory BO MCCLAIN . Facility:[facility] Start: 12-15-2022 End: 12-16-[address] JACK HALL . Facility:[facility] Start: 12-08-2022 End: 12-08-2022 ambulatory Shaikh Lev Facility:[facility] Start: 12-08-2022 End: 12-08-2022 Admission to same day surgery center MD Shaikh Ohara Work Phone: [facility] Work Phone: Start: 12-08-2022 End: 12-08-2022 ambulatory MD Shaikh Ohara Work Phone: [facility] Work Phone: Start: 11-11-2022 End: 11-11-[address] JACK HALL . Facility:[facility] Start: 11-09-2022 End: 11-09-2022 ambulatory Aziz Bakhous Other [facility] Other Start: 11-09-2022 Telephone encounter Aziz Bakhous [facility] Start: 08-19-2022 End: 08-20-2022 ambulatory HERBERTH JOANA Facility:[facility] Start: 08-09-2022 End: 08-09-2022 ambulatory Herberth Joana Other [facility] Other Start: 08-09-2022 Office outpatient visit 10 minutes Herberth Joana [facility] Start: 08-09-2022 Telephone encounter Herberth Joana [facility] Start: 08-05-2022 Telephone encounter Herberth Joana [facility] Start: 08-05-2022 End: 08-06-2022 ambulatory HERBERTH JOANA [facility] [employer] Other Start: 07-08-2022 End: 07-08-2022 ambulatory Gato Reynoldsormack Other [facility] Other Start: 07-08-2022 Telephone encounter Gato Manasaian ck [facility] Start: 07-05-2022 End: 07-06-2022 ambulatory SAUNDERS H FAWWAD Facility:[facility] Start: 06-08-2022 End: 06-09-2022 ambulatory SAUNDERS H FAWWAD Facility:[facility] Start: 06-07-2022 End: 06-07-2022 ambulatory SAUNDERS H FAWWAD Facility:[facility] Start: 01-24-2022 End: 01-25-2022 ambulatory PHYSICIAN UNKNOWN Facility:[facility] Start: 11-17-2021 End: 11-17-2021 ambulatory Herberth Joana Other [facility] Other Start: 11-17-2021 Office outpatient visit 15 minutes Herberth Joana [facility] Start: 08-30-2021 Office outpatient visit 15 minutes Rena Hurd [facility] Start: 09-11-2020 End: 09-11-2020 Chart abstracting Miguelito Buck Work Phone: Hematology/Oncology Start: 09-11-2020 End: 09-11-2020 Patient encounter procedure External Provider [facility] Start: 09-11-2020 Results Only External Provider [facility] Start: 09-30-2019 End: 09-30-2019 [facility] [place] Start: 07-07-2017 End: 07-07-2017 Admission to day surgery [facility] Start: 05-24-2004 Evaluation and management of inpatient Steph [facility] Start: 06-21-2004 Evaluation and management of inpatient [facility] Procedures Date Procedure Procedure Detail Performing Clinician Start: 12-08-2022 Colonoscopy MD Shaikh Ohara Work Phone: Start: 09-11-2020 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 Start: 09-11-2020 EXTERNAL LAB External P rovider Start: 09-11-2020 EXTERNAL PROCEDURE Exte rnal Provider Start: 09-30-2019 Ultrasonography of b ilateral kidneys Steph Collier Plan of Treatment Date Care Activity Detail Author Start: 12-08-2022 [facility] Start: 07-07-2020 Influenza vaccination INFLUENZA (#1) [facility] Start: 2006 SHINGRIX VACCINE (1 of 2) SHINGRIX VACCINE (1 of 2) [facility] Start: 2006 Tuberculosis screening COLORECTAL CANCER SCREENING,SEE MODIFIER [facility] Start: 2001 DIABETES SCREEN DIABETES SCREEN [facility] Start: 2001 LIPID SCREEN LIPID SCREEN [facility] Start: 1996 Mammography MAMMOGRAM [facility] Start: 1986 HPV TESTING HPV TESTING [facility] Start: 1977 PAP TESTING PAP TESTING [facility] Start: 1975 Urine microalbumin profile DTAP,TDAP,TD (1 - Tdap) [facility] Start: 1974 HEPATITIS C SCREENING HEPATITIS C SCREENING [facility] Start: 1974 HIV SCREENING HIV SCREENING [facility] Patient Education Colon Polypect shahram Hemorrhoids (DC) Diverticulosis (DC) [facility] Work Phone: [facility] Immunizations Immunization Date Immunization Notes Care Provider Henrietta charles 07-18-2018 Depo-Medrol 40 mg Rena Gint y Other [facility] Other 01-31-2018 Depo-Medrol 40 mg Rena Gint y Other [facility] Other 08-09-2017 influenza, seasonal, injectable, preservative free Rena Ginty Other [facility] Other Payers Date Payer Category Payer Unknown 2022 Self-pay [id number] 2021 Medicare [id number] 2020 Medicaid [id number] 2019 Medicaid MEDICAID [facility] MEDICAID [id number] 2019-Present Medicaid [id number] 2016 Medicare MEDICARE MEDICAR E A AND B [id number] 2016-Present [place] Medicare [id number] 1959 Unknown [id number] 1956 Unknown [id number] 2.16.840.1.954877.3.579.2.647 1956 Unknown [id number] 2.16.840.1.114917.3.579.2.593 1956 Unknown [id number] 2.16.840.1.806883.3.579.2.593 1956 Unknown [id number] 2.16.840.1.426847.3.579.2.593 1956 Unknown [id number] 2.16.840.1.080192.3.579.2.593 1956 Unknown [id number] 2.16.840.1.003031.3.579.2.593 1956 Unknown [id number] 2.16.840.1.922226.3.579.2.593 1956 Unknown [id number] 2.16.840.1.549661.3.579.2.593 1956 Unknown [id number] 2.16.840.1.689737.3.579.2.593 1956 Unknown [id number] 2.16.840.1.239877.3.579.2.593 1956 Unknown [id number] 2.16.840.1.794599.3.579.2.593 1956 Unknown [id number] 2.16.840.1.314531.3.579.2.593 1956 Unknown [id number] 2.16.840.1.884050.3.579.2.1259 1956 Unknown [id number] 2.16.840.1.416370.3.579.2.1259 1956 Unknown [id number] 2.16.840.1.805058.3.579.2.1259 1956 Unknown [id number] 2.16.840.1.254780.3.579.2.1259 1956 Unknown [id number] 2.16.840.1.802473.3.579.2.1259 1956 Unknown [id number] 2.16.840.1.774762.3.579.2.1259 1956 Unknown [id number] 2.16.840.1.002380.3.579.2.1259 1956 Unknown [id number] 2.16.840.1.739284.3.579.2.196 1956 Unknown [id number] 2.16.840.1.032193.3.579.2.196 1956 Unknown [id number] 2.16.840.1.100273.3.579.2.196 1956 Unknown [id number] 2.16.840.1.600059.3.579.2.196 1956 Unknown [id number] 2.16.840.1.184577.3.579.2.196 Medicare [id number] Unknown HCAP/HFA/FAP Active [id number] Unknown [id number] 2.16.840.1.238571.3.579.2.531 Social History Date Type Detail Facility Tobacco smoking stat us [facility] Unknown if ever smoked [facility] Start: 1955 Sex Assigned At Female F [facility] Start: 09-11-2020 End: 12-08-2022 Tobacco smoking status NHIS Never smoker [facility] Start: 09-11-2020 Tobacco use and exposure Never used [facility] Start: 09-11-2020 Alcohol intake Lifetime non-d my (finding) [facility] Start: 09-11-2020 History SDOH Alcohol Frequency 1 [facility] Sex Assigned At Not on file [facility] Sex Assigned At Sex Assigned At Bir th 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 Continue oral Magnesium [facility] Chief Complaint: Patient here for 1 year follow up CAD and hypertension. She was recently discharged from [facility] for Covid-19. She says hydrochlorothiazide was [...] breath since then. She has seen her geographic information systems director. Her chest pain is noncardiac. She has no other cardiac complaints. Cardiology ROS: Review of Systems Cardiovascular: Positive for chest pain and dyspnea on exertion. Respiratory: Positive for wheezing. Musculoskeletal: Positive for arthritis, back pain, joint pain and myalgias. Neurological: Positive for light-headedness. All other systems reviewed and are negative. Past Medical History She has a past medical history of Cancer (CMS/[facility]) and Hypertension. Surgical History She has a [...] 325 mg by mouth., Disp: , Rfl: genyfremrkj-gpizqbyec-jfwhqens 100-62.5-25 mcg blister with device, , Disp: [...] CTAB, no increased eff (more content not included)...[facility]05-19-2023 NotePROCEDURE: XR HIP RT 2 3V W PELVIS HISTORY: Pain in right hip joint , chronic COMPARISON: XR L-spine 02/26/2019, XR left hip with pelvis 03/11/2017 FINDINGS: BONES:Complete loss of the right hip joint space with kdrw-ou-otsa articulation, subchondral sclerosis and cysts, and large periarticular degenerative osteophytes. No fracture or dislocation. Left hip replacement. Mechanical fusion of L5-S1 and moderate dextroscoliosis of lumbar spine. SOFT TISSUES:No visible soft tissue swelling. EFFUSION:None visible. OTHER: Negative. IMPRESSION: 1. Marked degenerative joint disease of the right hip; progressed since prior study. 2. Stable surgical changes. Electronically authenticated by: STEPH GRANADOS Date: 2023-03-24 12:55[facility]05-18-2023 NoteSubjective 03/23/23 Diana Champion is [...] LIGATION Past Medical History: Diagnosis Date Cancer ([facility]) Hypertension Objective General: Body mass index is [...] from the patient's PCP as well as geographic information systems director for a right anterior total hip [...] may be an additional personal documentation from me.[facility]04-27-2023 Evaluation note* Encounter Date Diagnosis Assessment Notes [...] PPI induced GI losses. Continue oral Magnesium [facility] Other 02-02-[address] [facility]01-04-2023 Evaluation note* Encounter Date Diagnosis Assessment Notes Treatment Notes Treatment Clinical Notes Nov, Hypokalemia (ICD-10 - E87.6) Nov, Hypomagnesemia (ICD-10 - E83.42) [facility] Other 10-04-2022 Evaluation note* Encounter Date Diagnosis [...] office does not accept her new insurance. [facility] Other 09-02-2022 Evaluation note* Encounter Date Diagnosis Assessment Notes Treatment Notes Treatment Clinical Notes Jul, History of colon cancer (ICD-10 - Z85.038) [facility] Other 01-12-2022 Evaluation note* Encounter Date Diagnosis [...] potassium wasting. I have prescribed oral potassium. [facility] Other [id number] Evaluation note* Encounter Date Diagnosis Assessment Notes [...] care instructions given in writting by [facility] Care At Home document [facility] Other Evaluation noteNo InformationNort [place] Other Evaluation note* Diagnosis Onset Date Resolution Status History of colon cancer [facility] Work Phone: History general Narrative [...] IN 08/2019 Hospitalization History HIP REVISION 03/2020 [facility] Other History general Narrative - Reported* Type [...] Hospitalization History COVID X 2 WEEKS 04/2023 [facility] Other Hospital Discharge instructions Additional Instructions DISCHARGE [...] if you have any problems. -[facility] number [phone] Work Phone: Advance Directives No [...] or prosecute any alcohol or drug abuse patient.[facility] the event this information is protected by the Federal Confidentiality of Alcohol and Drug Abuse Patient Records regulations: The Federal rules restrict any use of the information to criminally investigate or prosecute any alcohol or drug abuse patient.[facility] System[facility] the event this information is protected by the Federal Confidentiality of Alcohol and Drug Abuse Patient Records regulations: The Federal rules restrict any use of the information to criminally investigate or prosecute any alcohol or drug abuse patient.[facility] System[facility] the event this information is protected by the Federal Confidentiality of Alcohol and Drug Abuse Patient Records regulations: The Federal rules restrict any use of the information to criminally investigate or prosecute any alcohol or drug abuse patient.[facility] INFORMATION SOURCE (unrecogn ized section and content) DATE CREATED AUTHOR 03/03/2022 [facility] DATE CREATED AUTHOR AUTHOR'S ORGANIZ ATION 04/17/2023 [facility] DATE CREATED AUTHOR AUTHOR'S ORGANIZ ATION 05/08/2023 [facility] DATE CREATED AUTHOR AUTHOR'S ORGANIZ ATION 06/07/[address] [facility] DATE CREATED AUTHOR AUTHOR'S ORGANIZ ATION 02/26/2024 [facility] DATE CREATED AUTHOR AUTHOR'S ORGANIZ ATION 02/28/2024 [facility] REASON FOR VISIT (unrecogniz ed section and [...] BE BASED ON THE PRIMARY CLINICAL RECORDS. [facility]. provides no warranty or guarantee of the accuracy or completeness of information in this document.
--- NOTE | 2024-02-29 07:57 | P.CN_ITS ---
Consult Note: HPI Data of Consult Patient: known to practice within the last 3 years Requesting Physician: Violet Saucedo NP Primary Care Provider: Shaikh Lev MD Consult Narrative Reason for consult: f/u Narrative: Diana Champion a pleasant 68 year old female presents for evaluation and management of low back pain. Today rating pain 0/10 in low back, pain in upper back 3-4/10 sharp pressure increasing with standing walking activity and cold weather, increased to moderate to sever. Recently underwent bilateral L4-5 TFESI for lumbar stenosis with NC and lumbar radiculopathy with 70% improvement ongoing. Patient was hospitalized and did not complete bilateral L3-4 TFESI. PT has failed to benefit from PT and conservative measures in the past, hx of L5-S1 fusion. Patient needs a right ELZA but is unable to do that at this time. Patient is following with pulmonology and PCP for pneumonia and chronic lung disease, on continuous o2. Recent hospitalization for pneumonia, now utilizing a vest to break up pulmonary secretions which is likely increasing her chronic back pain. cc:: CC: Violet Saucedo NP Review of Systems 2 ROS0 Status of ROS 10 or more systems reviewed and unremark able except as noted in history and below Respiratory Reports: cough and chest congestion Musculoskeletal Reports: back pain PFSH PFSH Medical History Hypomagnesemia ?E83.42 - Hypomagnesemia (ICD-10) Acute hypokalemia ?E87.6 - Hypokalemia (ICD-10) Pneumonia ?J18.9 - Pneumonia, unspecified organism (ICD-10) Acute exacerbation of chronic obstructive pulmonary disease ?J44.1 - Chronic obstructive pulmonary disease with (acute) exacerbation (ICD-10) CAD (coronary artery disease) ?I25.10 - Atherosclerotic heart disease of [place] coronary artery without angina pectoris (ICD-10) Chronic heart failure with preserved ejection fraction (HFpEF) ?I50.32 - Chronic diastolic (congestive) heart failure (ICD-10) Hypertension ?I10 - Essential (primary) hypertension (ICD-10) Myofascial pain ?M79.18 - Myalgia, other site (ICD-10) Greater trochanteric bursitis ?M70.60 - Trochanteric bursitis, unspecified hip (ICD-10) Osteoarthritis of right hip ?M16.11 - Unilateral primary osteoarthritis, right hip (ICD-10) Lumbar spondylosis ?M47.816 - Spondylosis without myelopathy or radiculopathy, lumbar region (ICD-10) Lumbar postlaminectomy syndrome ?M96.1 - Postlaminectomy syndrome, not elsewhere classified (ICD-10) Lumbar stenosis with neurogenic claudication ?M48.062 - Spinal stenosis, lumbar region with neurogenic claudication (ICD- 10) Depression ?F32.A - Depression, unspecified (ICD-10) Chronic low back pain ?M54.50 - Low back pain, unspecified (ICD-10) ?G89.29 - Other chronic pain (ICD-10) Hypoxia ?R09.02 - Hypoxemia (ICD-10) Heart murmur ?R01.1 - Cardiac murmur, unspecified (ICD-10) Chronic obstructive pulmonary disease ?J44.9 - Chronic obstructive pulmonary disease, unspecified (ICD-10) Asthma ?J45.909 - Unspecified asthma, uncomplicated (ICD-10) Surgical History Status post hip surgery ?Z98.890 - Other specified postprocedural states (ICD-10) H/O foot surgery ?Z98.890 - Other specified postprocedural states (ICD-10) H/O tubal ligation ?Z98.51 - Tubal ligation status (ICD-10) History of lumbar fusion ?Z98.1 - Arthrodesis status (ICD-10) Social History Smoking status: Never smoker Highest level of school completed/degree received: Associate degree: occupational, technical, vocational program Do you think of yourself as: straight/heterosexual Gender Identity: female Meds Home Medications and Allergies Home Medications ?Medication ?Instructions ?Recorded ?Confirmed ?Type fluticasone fur. 200 mcg-umeclid 1 inh inhalation Q24H COPD 04/10/23 02/19/24 History 62.5 mcg-vilant 25 mcg inhalat.powder (Trelegy Ellipta) magnesium oxide 400 mg (241.3 mg 400 mg PO DAILY 04/10/23 02/19/24 History magnesium) tablet omeprazole 20 mg capsule,delayed 20 mg PO BID 04/10/23 02/19/24 History release montelukast 10 mg tablet 10 mg PO DAILY 09/14/23 02/19/24 History pramipexole 0.25 mg tablet 0.25 mg PO QPM 09/14/23 02/19/24 History (Mirapex) paroxetine HCl 30 mg tablet 30 mg PO QDAY 11/25/23 02/19/24 History pregabalin 75 mg capsule 75 mg PO BID 11/25/23 02/19/24 History solifenacin 10 mg tablet 10 mg PO QDAY 11/25/23 02/19/24 History trazodone 100 mg tablet 100 mg PO .qhs 11/25/23 02/19/24 History guaifenesin 600 mg tablet, 600 mg PO BID 10 days #20 tabs 12/02/23 02/19/24 Rx extended release 12 hr (Mucus Relief ER) tramadol 50 mg tablet 50 mg PO BID PRN pain 01/30/24 02/19/24 History baclofen 10 mg tablet 10 mg PO Q8H 02/03/24 02/19/24 History oxycodone 5 mg tablet 5 mg PO Q6H PRN pain 02/03/24 02/19/24 History fluconazole 100 mg tablet 100 mg PO QD #10 tabs 02/08/24 02/19/24 Rx levofloxacin 500 mg tablet 500 mg PO DAILY 10 days #10 tabs 02/08/24 02/19/24 Rx magnesium oxide 400 mg (241.3 mg 400 mg PO DAILY #30 tabs 02/08/24 02/19/24 Rx magnesium) tablet prednisone 10 mg tablet 40 mg (4 x 10 mg) PO DAILY #32 tabs 02/08/24 02/19/24 Rx Allergies Allergy/AdvReac Type Severity Reaction Status Date / Time No Known Drug Allergies Allergy Verified 02/19/24 08:57 Exam Constitutional Documenting provider has reviewed patient's vital signs: yes Common normals: no apparent distress, oriented x3, healthy appearing, alert and well nourished General appearance: cooperative [facility] Common normals: normocephalic, hearing grossly normal bilaterally and moist oral mucous membranes Head and scalp: normocephalic Eye Common normals: PERRL Pupil: PERRL Neck & C-Spine Common normals: full ROM General: normal visual inspection Chest Common normals: inspection of chest normal Respiratory Common normals: normal respiratory effort, no retractions and no use of accessory muscles Effort & inspection: actively coughing Other: productive cough without SOB Back & Pelvis Thoracic spine/upper back: ROM limited, pain with ROM and thoracic spinal tenderness Lumbar spine/lower back: ROM limited, pain with ROM and straight leg raise negative bilaterally Other: sensation intact BLE weakness in BLE 4/5 multilevel thoracic facet tenderness, no trigger points noted Back image (female): 2 1. Extremity Common normals: normal to inspection and full ROM Right lower extremity: hip joint Other: pain with internal and external rotation. Weakness to BLE 4/5 strength Neuro Common normals: oriented x3, CN's II-XII intact bilaterally, moves all extremities, no focal motor deficits, no sensory deficits noted and deep tendon reflexes 2+ bilaterally Sensorium/orientation: alert Gait (neuro): assistive device used other (wheelchair) Motor exam: no movement abnormalities noted and strength abnormal Psych Common normals: mental status grossly normal, thought process normal, cooperative, affect normal, speech normal and activity/motor behavior normal Speech: normal speech Thought process: normal thought process Results Imaging lumbar MRI: Attestation: I personally reviewed and interpreted this imaging study as follows: Radiologist's impression: BONES: Rotatory dextroscoliosis. Moderate diffuse degenerative spondylosis. Posterior decompression bilateral transpedicular fusion L5-S1. Interbody spacer L5-S1 CORD/CAUDA EQUINA: Normal caliber, contour, and signal intensity. 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 L1-L2: Mild to moderate disc space narrowing and disc desiccation, left greater than right. Moderate left disc/osteophyte complex. Mild trefoil narrowing of the central canal. No right foraminal stenosis. Moderate narrowing of the left neural foramen L2-L3: Moderate left disc space narrowing. Moderate left posterior disc/osteophyte complex and facet osteoarthropathy. Mild trefoil narrowing the central canal. No right foraminal stenosis. Moderate to severe left foraminal stenosis L3-L4: Moderate disc/osteophyte complex and facet osteoarthropathy. No central canal stenosis. Mild to moderate bilateral foraminal stenosis. L4-L5: Disc desiccation. No disc bulge or herniation. No central or foraminal stenosis L5-S1: Posterior decompression and fusion. Interbody spacer. No disc bulge or herniation. No central or foraminal stenosis. Additional Findings Additional findings: If on a controlled substance or opioids, I have checked an [place] report on this patient and there are no aberrancies noted in the prescribing history.??If on a controlled substance or opioid a drug screen was completed and reviewed within the last year, and if there has not been a drug screen completed we ordered one today to monitor higher risk, state monitored pain medication use. As part of providing excellent, safe, comprehensive care, the following was completed at our patient's visit: 1. A medication reconciliation and review to ensure accurate knowledge of current/active medications, including asking our patients to inform us about any [id number] medications or herbal remedies/nutritional supplements/alternative remedies. 2. A review to specifically ensure our patients have had annual screening for screening for depression, screening for tobacco use, and screening for unhealthy alcohol use. For concerning screenings had a discussion with the patient, provided patient education, and recommended follow-up with primary care provider when appropriate. If patient noted with a risk of falling, they received education on strength, gait, and balance training to prevent future risk of falling. Assessment and Plan Assessment and Plan (1) Lumbar stenosis with neurogenic claudication: Assessment and Plan: improved (2) Lumbar radiculopathy: Assessment and Plan: resolved (3) Thoracic spondylosis: (4) Lumbar spondylosis: Assessment and Plan: stable (5) Failed back syndrome: (6) History of lumbar fusion: (7) Myofascial pain: (8) Osteoarthritis of right hip: Qualifiers: Osteoarthritis type: primary Qualified Code(s): M16.11 - Unilateral primary osteoarthritis, right hip (9) Encounter for long-term opiate analgesic use: (10) On home oxygen therapy: Plan update thoracic xray continue f/u with PCP and pulmonology continue baclofen 10mg TID PRN for myofascial pain continue current medications, tolerating well without side effects. f/u 1 month
== END 2024-02-29 07:42 | disposition home or self-care (01) ==
LOC: PM 07:41
PROVIDERS: PCP Internal Medicine; Visit Provider Nurse Practitioner
DX: M48.062 Spinal stenosis, lumbar region with neurogenic claudication (principal); M54.16 Radiculopathy, lumbar region; M47.814 Spondylosis without myelopathy or radiculopathy, thoracic region; M47.816 Spondylosis without myelopathy or radiculopathy, lumbar region; Z98.890 Other specified postprocedural states; M79.18 Myalgia, other site; M16.11 Unilateral primary osteoarthritis, right hip; Z79.891 Long term (current) use of opiate analgesic; Z99.81 Dependence on supplemental oxygen
CPT/HCPCS: G0463

== ENCOUNTER 2024-03-06 14:51 | Outpatient (OUT) | payer OTHER, SELFPAY ==
--- OUTSIDE RECORDS SUMMARY | 2024-03-06 15:07 | XMS_ITS | CCD ---
Author Organization [facility] Care Team Providers Care Solution Designer Name Role Phone Steph Collier Attending Provider Unavailable Chantel Rainey Primary Care Provider Unavailabl e Joana, Herberth Attending Provider Unavailable Unavailable Primary Care Provider Unavailabl e UNKNOWN, PHYSICIAN Referring Unavailable JOO LINN Attending Unavailable JOO LINN Admitting Unavailable UNKNOWN, PHYSICIAN Primary Care Unavailable Rena Hurd Unavailable Joana, Herberth Unavailable Gato Domingo Unavailable Steph Collier Attending Provider [phone] MD Gato Domingo Attending Provider [phone] MD Nicky Ohara Primary Care Provider Gilma [...] e FAWWAD, SAUNDERS H Primary Care Unavailable RIENZI, DR BRITTANY Elizondo Consulting Unavailable ZIEBBETH, DR [...] Attending Unavailable JOO LINN Attending Unavailable Fawwad, Saundesr Primary Care Unavailable Gato Domingo Attending UnavailGato Chatterjee Admitting Unavailabl e FAWWAD, [...] Translations: [fentanyl] Drug Allergy 07-07-20 17 Hallucinating [facility] (2 sources) linezolid; Translations: [LINEZOLID] Drug Allergy 03-17-20 [facility] (20 sources) Vancomycin; Translations: [VANCOMYCIN] Drug Allergy 03-17-20 Unknown [facility] (11 sources) DENIES METAL SENSITITIVITY Propensity to adverse reactions Unknown FoxyTunes Other Medications Current Medications Medication Drug Class(es) [...] Oral Bedtime July 07, 2017 10:21am famotidine ([facility]) 20 mg tablet Take 20 mg [...] each nostril Nasally Once a day Active Wcbelcejwaw-Dacuxewgm-Ho lanter (1 source) Star t: 02-0 2-20 23 Wjbhjbpvkuy-Bzazdhwbe-A ilanter (Trelegy Ellipta) 200-62.5-25 mcg blister with [...] 1 puff(s) by inhalation twice daily Ipratropium [place] Active 2 PUFF Inhalation Twice daily July [...] Active Start: 08-05-2022 take 1 tablet [facility] every twelve hours Potassium Chloride ER 20 [...] Interpretation Reference Range Facility Follow-Upon 05-08-2023 Follow-Up [id number] Nell Champion 1955 F Date Provider Department Center 05/08/2023 [id number], EHAB [facility] C[facility] Family History Problem Relation Age of Onset Heart failure Mother Heart disease Father Family Status - Relation Status Age at Mother Father Level of Service:70511 UT OFFICE/OUTPATIENT ESTABLISHED LOW MDM 20-29 MIN Normal [facility] 3605-03-2023 36 PATIENT CALLED TO CANCEL SURGERY FOR July D/T HER LUNG DISEASE. WILL CALL TO RESCHEDULE WHEN FULLY HEALED FROM LUNGS AND CLEARED//[facility] 04-19-2023 36 FYI CALLED PATIENT T O F/U ON MEDICAL AND PULMONARY CLEARANCES FOR R ELZA ON 05/19 AND PRE-OP RIYA'T 04/27 WITH US AND PATIENT IS CURRENTLY INPATIENT SINCE LAST WEEK D/T COVID AND PULMONARY ISSUES, SHE WILL CALL US ON 04/25 WITH PROGRESS, PLEASE ADVISE IF WE SHOULD CANCEL SURGERY FOR NOW..THANKS//[facility] SYMPTOMATIC COVID-19 ANTIGEN on 04-04-2023 EUA Statement SEE BELOW [facility] Comment on above: Result Comment: This test [...] sooner. Performed By: #### C VDAGS #### [facility] [address] [address] [address] Shayne Roldan SARS-CoV-2 (COVID-19) RNA KAYLEE+probe Ql (Unsp spec) Positive Abnormal NEGATIVE [facility] Comment on above: Performed By: #### C VDAGS #### [facility] [address] [place] [address] Dr. Shayne Roldan XR LSPINE 2_3 VIEWSon [...] STEPH GRANADOS Date: 2023-03-24 12:52 Normal [facility] PTH INTACTon 02-27-2023 PTH, Intact 87 pg/mL Critically high 15-65 [facility] Comment on above: Performed By: #### P THINT #### [facility] [address] [place] [address] Dr. Shayne Roldan HEMOGRAM AND PLATELon 2022 Hematocrit (Bld) [Volume fraction] 44.4 % Normal 36.0-48.0 [facility] Comment on above: Performed By: #### H H #### [facility] [address] [place] [address] Dr. Shayne Roldan Hemoglobin (Bld) [Mass/Vol] 14.5 g/dL Normal 12.0-16.0 [facility] Comment on above: Performed By: #### H H #### [facility] [address] [place] [address] Dr. Shayne Roldan MCH (RBC) [Entitic mass] 30.3 pg Normal 26.7-34.0 [facility] Comment on above: Performed By: #### H H #### [facility] [address] [place] [address] Dr. Shayne Roldan MCHC (RBC) [Mass/Vol] 32.7 g/dL Normal 29.9-35.2 [facility] Comment on above: Performed By: #### H H #### [facility] [address] [place] [address] Dr. Shayne Roldan MCV (RBC) [Entitic vol] 92.9 fL Normal 81.0-99.0 [facility] Comment on above: Performed By: #### H H #### [facility] [address] [place] [address] Dr. Shayne Roldan PLT 367 103/ul Normal 150-450 [facility] Comment on above: Performed By: #### H H #### [facility] [address] [place] [address] Dr. Shayne Roldan RBC 4.78 106/ul Normal 4.20-5.40 [facility] Comment on above: Performed By: #### H H #### [facility] [address] [place] [address] Dr. Shayne Roldan WBC 9.9 103/ul Normal 4.0-11.0 [facility] Comment on above: Performed By: #### H H #### [facility] [address] [place] [address] Dr. Shayne Roldan MAGNESIUMon 02-25-2023 Magnesium [Mass/Vol] 1.6 mg/dL Critically low 1.8-2.4 [facility] Comment on above: Performed By: #### M G, RENAL, URIC #### [facility] [address] [place] [address] Dr. Shayne Roldan RENAL FUNCTION PANELon 02-25 Albumin [Mass/Vol] 3.4 g/dL Normal 3.4-5.0 [place] Comment on above: Performed By: #### M G, RENAL, URIC #### [facility] [address] [place] [address] Dr. Shayne Roldan Calcium [Mass/Vol] 8.7 mg/dL Normal 8.5-10.1 [place] Comment on above: Performed By: #### M G, RENAL, URIC #### [facility] [address] [place] [address] Dr. Shayne Roldan Chloride [Moles/Vol] 104 mmol/L Normal 98-107 [facility] Comment on above: Performed By: #### M G, RENAL, URIC #### [facility] [address] [place] [address] Dr. Shayne Roldan CO2 [Moles/Vol] 25.9 mmol/L Normal 21.0-32.0 [facility] Comment on above: Performed By: #### M G, RENAL, URIC #### [facility] [address] [place] [address] Dr. Shayne Roldan Creatinine [Mass/Vol] 1.19 mg/dL Critically high 0.55-1.02 [facility] Comment on above: Performed By: #### M G, RENAL, URIC #### [facility] [address] [place] [address] Dr. Shayne Roldan EGFR-AF FRENCH 55 mL/min/1.73m2 Critically low >=60 [facility] Comment on above: Performed By: #### M G, RENAL, URIC #### [facility] [address] [place] [address] Dr. Shayne Roldan EGFR-NON AF FRENCH 45 mL/min/1.73m2 Critically low >=60 [facility] Comment on above: Performed By: #### M G, RENAL, URIC #### [facility] [address] [place] [address] Dr. Shayne Roldan Glucose [Mass/Vol] 193 mg/dL Critically high 74-106 [facility] Comment on above: Performed By: #### M G, RENAL, URIC #### [facility] [address] [place] [address] Dr. Shayne Roldan Phosphate [Mass/Vol] 3.2 mg/dL Normal 2.6-4.7 [facility] Comment on above: Performed By: #### M G, RENAL, URIC #### [facility] [address] [address] [address] Shayne Roldan Potassium [Moles/Vol] 3.9 mmol/L Normal 3.5-5.1 [facility] Comment on above: Performed By: #### M G, RENAL, URIC #### [facility] [address] [place] [address] Dr. Shayne Roldan Sodium [Moles/Vol] 140 mmol/L Normal 136-145 [facility] Comment on above: Performed By: #### M G, RENAL, URIC #### [facility] [address] [place] [address] Dr. Shayne Roldan Urea nitrogen [Mass/Vol] 17.0 mg/dL Normal 7.0-18.0 [facility] Comment on above: Performed By: #### M G, RENAL, URIC #### [facility] [address] [place] [address] Dr. Shayne Roldan UA RANDOM W/MICROSCOPICon BACTERIA TRACE Abnormal NONE SEEN [facility] Comment on above: Performed By: #### M G, RENAL, URIC #### [facility] [address] [place] [address] Dr. Shayne Roldan Bilirubin Ql (U) Negative Normal NEGATIVE [facility] Comment on above: Performed By: #### M G, RENAL, URIC #### [facility] [address] [place] [address] Dr. Shayne Roldan CAST NONE SEEN Normal NONE SEEN [facility] Comment on above: Performed By: #### M G, RENAL, URIC #### [facility] [address] [place] [address] Dr. Shayne Roldan Clarity (U) CLEAR Normal CLEAR [facility] Comment on above: Performed By: #### M G, RENAL, URIC #### [facility] [address] [place] [address] Dr. Shayne Roldan Color (U) LT. YELLOW Normal YELLOW [facility] Comment on above: Performed By: #### M G, RENAL, URIC #### [facility] [address] [place] [address] Dr. Shayne Roldan Crystals LM Nom (Urine sed) NONE SEEN Normal NONE SEEN [facility] Comment on above: Performed By: #### M G, RENAL, URIC #### [facility] [address] [address] [address] Shayne Roldan Epithelial cells LM Ql (Urine sed) RARE Normal NONE SEEN /RARE [facility] Comment on above: Performed By: #### M G, RENAL, URIC #### [facility] [address] [address] [address] Shayne Roldan Glucose Ql (U) Negative Normal NEGATIVE [facility] Comment on above: Performed By: #### M G, RENAL, URIC #### [facility] [address] [address] [address] Shayne Roldan Hemoglobin Ql (U) Negative Normal NEGATIVE [facility] Comment on above: Performed By: #### M G, RENAL, URIC #### [facility] [address] [place] [address] Dr. Shayne Roldan Ketones Ql (U) Negative Normal NEGATIVE [facility] Comment on above: Performed By: #### M G, RENAL, URIC #### [facility] [address] [place] [address] Dr. Shayne Roldan LEUKOCYTES Negative Normal NEGATIVE [facility] Comment on above: Performed By: #### M G, RENAL, URIC #### [facility] [address] [address] [address] Shayne Roldan MUCOUS NONE SEEN Normal NONE SEEN [facility] Comment on above: Performed By: #### M G, RENAL, URIC #### [facility] [address] [address] [address] Shayne Roldan Nitrite Ql (U) Negative Normal NEGATIVE [facility] Comment on above: Performed By: #### M G, RENAL, URIC #### [facility] [address] [place] [address] Dr. Shayne Roldan pH (U) 5.0 [pH] Normal 5-9 [facility] Comment on above: Performed By: #### M G, RENAL, URIC #### [facility] [address] [place] [address] Dr. Shayne Roldan RBC 0-2 Normal 0-2 [facility] Comment on above: Performed By: #### M G, RENAL, URIC #### [facility] [address] [place] [address] Dr. Shayne Roldan SPEC GRAVITY 1.025 Normal 1.005-<=1.025 [facility] Comment on above: Performed By: #### M G, RENAL, URIC #### [facility] [address] [place] [address] Dr. Shayne Roldan UA PROTEIN Negative Normal NEGATIVE/ TRACE [facility] Comment on above: Performed By: #### M G, RENAL, URIC #### [facility] [address] [place] [address] Dr. Shayne Roldan Urobilinogen Qn (U) 0.2 {Rogelio'U}/dL Normal 0.2 - 1. 0 [facility] Comment on above: Performed By: #### M G, RENAL, URIC #### [facility] [address] [place] [address] Dr. Shayne Roldan WBC 0-2 Abnormal NONE SEEN [facility] Comment on above: Performed By: #### M G, RENAL, URIC #### [facility] [address] [place] [address] Dr. Shayne Roldan URIC ACID SERUMon 02-25-2023 Urate [Mass/Vol] 6.1 mg/dL Critically high 2.6-6.0 [facility] Comment on above: Performed By: #### M G, RENAL, URIC #### [facility] [address] [place] [address] Dr. Shayne Roldan URINE T PROTEIN CREAT RATIOo n 02-25-2023 Protein (U) [Mass/Vol] 13.0 mg/dL Critically high <=12.0 [facility] Comment on above: Performed By: #### M G, RENAL, URIC #### [facility] [address] [place] [address] Dr. Shayne Roldan UR PROT CREAT RAT 0.16 Normal [facility] Comment on above: Performed By: #### M G, RENAL, URIC #### [facility] [address] [place], [place] [address] Dr. Shayne Roldan URINE CREAT 83.60 mg/dL Normal 20.00-300.00 [facility] Comment on above: Performed By: #### M G, RENAL, URIC #### [facility] [address] [place], [place] [address] Dr. Shayne Roldan VITAMIN D 25 OHon 02-25-2023 VIT D 25-OH 41.6 ng/mL Normal [facility] Comment on above: Performed By: #### M G, RENAL, URIC #### [facility] [address] [place], [place] [address] Dr. Shayne Roldan VIT D RANGES SEE BELOW Normal [facility] Comment on above: Result Comment: <20 ng/mL Vit D deficient 20 - <30 ng/mL Vit D insufficient 30 - 100 ng/mL Vit D sufficient >100 ng/mL Potential Toxicity Performed By: #### M G, RENAL, URIC #### [facility] [address] [place], [place] [address] Dr. Shayne Roldan XR CHEST 2 Von [...] BRITTANY GALDAMEZ Date: 2023-02-22 16:15 Normal [facility] MAMM SCREEN 3D PRATEEK CADon 12-15-2022 MG MAMM SCREEN 3D PRATEEK CAD Patient: DIANA CHAMPION Exam Date: 12/15/2022 : 1955 Gender:F Ordering : DR JACK HALL . Admission #: [id number] Family : Order #: [id number] CLICK HERE TO VIEW EXAM RADIOLOGY REPORT PROCEDURE: MAMMOGRAM SCREENING 3D BILATERAL CAD COMPARISON: MG MAMM SCREEN 3D PRATEEK CAD, 11/26/2021. INDICATIONS: Calculator Name NCI Breast Cancer Risk Assessment Tool 5 Year Breast Cancer Risk 1.20% Lifetime Breast Cancer Risk 4.40% Personal Breast Cancer No Personal Ovarian Cancer No Treatments Excision, radiation, chemotherapy Family Cancers None LOCATION: [facility] BREAST COMPOSITION: Almost entirely fatty. FINDINGS: [...] Walters MD on 12/15/2022 at 10:51 Normal [facility] XR DEXA BONE DENSITYon 12-15 XR [...] by: STEPH GRANADOS Date: 2022-12-15 09:50 Normal [facility] Fran 12-08-2022 L - -------- Specimen: [id number] Received: 12/08/22 Status: CELIA Kay Num: [id number] Spec Type: Surgical Subm Dr: Gato Domingo MD Tissues: A Colon Biopsy (DESC COL POLYP) Procedures: HE/2, Gross/Micro L4 -------- Age/ Patient Sex Location Account Attending Physician -------- Diana Champion 67/F [id number] Gato Domingo MD -------- SPEC NUM: [id number] RECD: 12/08/22 STATUS: CELIA MARIO NUM: [id number] KENDRA: 12/08/22 [facility] DR: Gato Domingo MD ENTERED: 12/08/[address] [facility] [address]: SPEC TYPE: Surgical DEPT: S ENTERED BY: [id number] RECV BY: [id number] ORDERED: HE/2, Gross/Micro L4 ORDERED: HE/2, Gross/Micro [...] support the above pathologic diagnosis. CPT Codes 42618 -------- -------- Specimen: [id number] Received: 12/08/22 Status: CELIA Kay Num: [id number] Spec Type: Surgical Subm Dr: Gato Domingo MD Tissues: A Colon Biopsy (DESC COL POLYP) Procedures: FLORENCIA/Evonne, Gross/Micro L4 -------- Patient: ChampionDiana [id number] (Continued) -------- Signed (signature on file) Eunice Rosa MD 12/09/22 1053 [facility] PAP ACOG PANEL 2: 30 to 65on 11-16-2022 . . Normal [facility] Comment on above: Performed By: #### [id number] #### [facility] [address] [address] [address] Shayne Roldan Age Gdln ACOG Testing Comment Normal [facility] Comment on above: Result Comment: <21 or >65 or no age provided Performed By: #### [id number] #### [facility] [address] [place] [address] Dr. Shayne Roldan DIAGNOSIS: Comment [facility] Comment on above: Result Comment: NEGA TIVE FOR INTRAEPITHELIAL LESION OR MALIGNANCY. Performed By: #### [id number] #### [facility] [address] [place] [address] Dr. Shayne Roldan Methodology: Comment [facility] Comment on above: Result Comment: This liquid based ThinPrep(R) pap test was screened with the use of an image guided system. Performed By: #### 4 [id number] #### [facility] [address] [place] [address] Dr. Shayne Roldan Note: Comment [facility] Comment on above: Result Comment: The Pap smear is a screening test designed to aid in the detection of premalignant and malignant conditions of the uterine cervix. It is not a diagnostic procedure and should not be used as the sole means of detecting cervical cancer. Both false-positive and false-negative reports do occur. . Performed By: #### 4 [id number] #### [facility] [address] [place] [address] Dr. Shayne Roldan Performed by: Comment [facility] Comment on above: Result Comment: Onur Aguilar Turner And Former Automatic (ASCP) Performed By: #### [id number] #### [facility] [address] [place] [address] Dr. Shayne Roldan Specimen adequacy: Comment [facility] Comment on above: Result Comment: Sati sfactory for evaluation. Endocervical and/or squamous metaplastic cells (endocervical component) are present. Performed By: #### 4 [id number] #### [facility] [address] [address] [address] Shayne Roldan RENAL FUNCTION PANELon 08-19 Albumin [Mass/Vol] 3.4 g/dL Normal 3.4-5.0 [place] Comment on above: Performed By: #### M G, RENAL, URIC #### [facility] [address] [address] [address] Shayne Roldan Calcium [Mass/Vol] 8.4 mg/dL Critically low 8.5-10.1 Th [facility] Comment on above: Performed By: #### M G, RENAL, URIC #### [facility] [address] [place] [address] Dr. Shayne Roldan Chloride [Moles/Vol] 103 mmol/L Normal 98-107 [facility] Comment on above: Performed By: #### M G, RENAL, URIC #### [facility] [address] [address] [address] Shayne Roldan CO2 [Moles/Vol] 27.8 mmol/L Normal 21.0-32.0 [facility] Comment on above: Performed By: #### M G, RENAL, URIC #### [facility] [address] [address] [address] Shayne Roldan Creatinine [Mass/Vol] 1.02 mg/dL Normal 0.55-1.02 [facility] Comment on above: Performed By: #### M G, RENAL, URIC #### [facility] [address] [address] [address] Shayne Roldan EGFR-AF FRENCH >60 Normal >=60 [facility] Comment on above: Performed By: #### M G, RENAL, URIC #### [facility] [address] [address] [address] Shayne Roldan EGFR-NON AF FRENCH 54 mL/min/1.73m2 Critically low >=60 [facility] Comment on above: Performed By: #### M G, RENAL, URIC #### [facility] [address] [place] [address] Dr. Shayne Roldan Glucose [Mass/Vol] 110 mg/dL Critically high 74-106 [facility] Comment on above: Performed By: #### M G, RENAL, URIC #### [facility] [address] [place] [address] Dr. Shayne Roldan Phosphate [Mass/Vol] 2.3 mg/dL Critically low 2.6-4.7 [facility] Comment on above: Performed By: #### M G, RENAL, URIC #### [facility] [address] [place] [address] Dr. Shayne Roldan Potassium [Moles/Vol] 3.2 mmol/L Critically low 3.5-5.1 [facility] Comment on above: Performed By: #### M G, RENAL, URIC #### [facility] [address] [place] [address] Dr. Shayne Roldan Sodium [Moles/Vol] 138 mmol/L Normal 136-145 [place] Comment on above: Performed By: #### M G, RENAL, URIC #### [facility] [address] [place] [address] Dr. Shayne Roldan Urea nitrogen [Mass/Vol] 14.0 mg/dL Normal 7.0-18.0 [facility] Comment on above: Performed By: #### M G, RENAL, URIC #### [facility] [address] [place] [address] Dr. Shayne Roldan PTH INTACTon 08-06-2022 PTH, Intact 40 pg/mL Normal 15-65 [facility] Comment on above: Performed By: #### M G, RENAL, URIC #### [facility] [address] [place] [address] Dr. Shayne Roldan HEMOGRAM AND PLATELon 2021 Hematocrit (Bld) [Volume fraction] 39.8 % Normal 36.0-48.0 [facility] Comment on above: Performed By: #### M G, RENAL, URIC #### [facility] [address] [address] [address] Shayne Roldan Hemoglobin (Bld) [Mass/Vol] 13.4 g/dL Normal 12.0-16.0 [facility] Comment on above: Performed By: #### M G, RENAL, URIC #### [facility] [address] [address] [address] Shayne Roldan MCH (RBC) [Entitic mass] 30.5 pg Normal 26.7-34.0 [facility] Comment on above: Performed By: #### M G, RENAL, URIC #### [facility] [address] [address] [address] Shayne Roldan MCHC (RBC) [Mass/Vol] 33.7 g/dL Normal 29.9-35.2 [facility] Comment on above: Performed By: #### M G, RENAL, URIC #### [facility] [address] [place] [address] Dr. Shayne Roldan MCV (RBC) [Entitic vol] 90.5 fL Normal 81.0-99.0 [facility] Comment on above: Performed By: #### M G, RENAL, URIC #### [facility] [address] [address] [address] Shayne Roldan PLT 299 103/ul Normal 150-450 [facility] Comment on above: Performed By: #### M G, RENAL, URIC #### [facility] [address] [address] [address] Shayne Roldan RBC 4.40 106/ul Normal 4.20-5.40 [facility] Comment on above: Performed By: #### M G, RENAL, URIC #### [facility] [address] [place] [address] Dr. Shayne Roldan WBC 8.8 103/ul Normal 4.0-11.0 [facility] Comment on above: Performed By: #### M G, RENAL, URIC #### [facility] [address] [place] [address] Dr. Shayne Roldan MAGNESIUMon 08-05-2022 Magnesium [Mass/Vol] 1.5 mg/dL Critically low 1.8-2.4 [facility] Comment on above: Performed By: #### M G, RENAL, URIC #### [facility] [address] [address] [address] Shayne Roldan RENAL FUNCTION PANELon 08-05 Albumin [Mass/Vol] 3.5 g/dL Normal 3.4-5.0 [place] Comment on above: Performed By: #### M G, RENAL, URIC #### [facility] [address] [address] [address] Shayne Roldan Calcium [Mass/Vol] 8.4 mg/dL Critically low 8.5-10.1 Th [facility] Comment on above: Performed By: #### M G, RENAL, URIC #### [facility] [address] [place] [address] Dr. Shayne Roldan Chloride [Moles/Vol] 101 mmol/L Normal 98-107 [facility] Comment on above: Performed By: #### M G, RENAL, URIC #### [facility] [address] [place] [address] Dr. Shayne Roldan CO2 [Moles/Vol] 29.5 mmol/L Normal 21.0-32.0 [facility] Comment on above: Performed By: #### M G, RENAL, URIC #### [facility] [address] [place] [address] Dr. Shayne Roldan Creatinine [Mass/Vol] 1.04 mg/dL Critically high 0.55-1.02 [facility] Comment on above: Performed By: #### M G, RENAL, URIC #### [facility] [address] [place] [address] Dr. Shayne Roldan EGFR-AF FRENCH >60 Normal >=60 [facility] Comment on above: Performed By: #### M G, RENAL, URIC #### [facility] [address] [place] [address] Dr. Shayne Roldan EGFR-NON AF FRENCH 53 mL/min/1.73m2 Critically low >=60 [facility] Comment on above: Performed By: #### M G, RENAL, URIC #### [facility] [address] [address] [address] Shayne Roldan Glucose [Mass/Vol] 92 mg/dL Normal 74-106 [facility] Comment on above: Performed By: #### M G, RENAL, URIC #### [facility] [address] [address] [address] Shayne Roldan Phosphate [Mass/Vol] 2.4 mg/dL Critically low 2.6-4.7 [facility] Comment on above: Performed By: #### M G, RENAL, URIC #### [facility] [address] [address] [address] Shayne Roldan Potassium [Moles/Vol] 2.8 mmol/L Critically low 3.5-5.1 [facility] Comment on above: Performed By: #### M G, RENAL, URIC #### [facility] [address] [address] [address] Shayne Roldan Sodium [Moles/Vol] 137 mmol/L Normal 136-145 The [facility] Comment on above: Performed By: #### M G, RENAL, URIC #### [facility] [address] [address] [address] Shayne Roldan Urea nitrogen [Mass/Vol] 10.0 mg/dL Normal 7.0-18.0 [facility] Comment on above: Performed By: #### M G, RENAL, URIC #### [facility] [address] [address] [address] Shayne Roldan UA RANDOM W/MICROSCOPICon BACTERIA SMALL Abnormal NONE SEEN [facility] Comment on above: Performed By: #### U AMIC #### [facility] [address] [address] [address] Shayne Roldan Bilirubin Ql (U) Negative Normal NEGATIVE The [facility] Comment on above: Performed By: #### U AMIC #### [facility] [address] [place] [address] Dr. Shayne Roldan CAST NONE SEEN Normal NONE SEEN [facility] Comment on above: Performed By: #### U AMIC #### [facility] [address] [address] [address] Shayne Roldan Clarity (U) CLEAR Normal CLEAR [facility] Comment on above: Performed By: #### U AMIC #### [facility] [address] [address] [address] Shayne Roldan Color (U) LT. YELLOW Normal YELLOW [facility] Comment on above: Performed By: #### U AMIC #### [facility] [address] [address] [address] Shayne Roldan Crystals LM Nom (Urine sed) NONE SEEN Normal NONE SEEN [facility] Comment on above: Performed By: #### U AMIC #### [facility] [address] [address] [address] Shayne Roldan Epithelial cells LM Ql (Urine sed) FEW Abnormal NONE SEEN /RARE [facility] Comment on above: Performed By: #### U AMIC #### [facility] [address] [place] [address] Dr. Shayne Roldan Glucose Ql (U) Negative Normal NEGATIVE The [facility] Comment on above: Performed By: #### U AMIC #### [facility] [address] [place] [address] Dr. Shayne Roldan Hemoglobin Ql (U) Negative Normal NEGATIVE The [facility] Comment on above: Performed By: #### U AMIC #### [facility] [address] [place] [address] Dr. Shayne Roldan Ketones Ql (U) Negative Normal NEGATIVE [facility] Comment on above: Performed By: #### U AMIC #### [facility] [address] [place] [address] Dr. Shayne Roldan LEUKOCYTES TRACE Abnormal NEGATIVE [facility] Comment on above: Performed By: #### U AMIC #### [facility] [address] [place] [address] Dr. Shayne Roldan MUCOUS NONE SEEN Normal NONE SEEN [facility] Comment on above: Performed By: #### U AMIC #### [facility] [address] [place] [address] Dr. Shayne Roldan Nitrite Ql (U) Negative Normal NEGATIVE [facility] Comment on above: Performed By: #### U AMIC #### [facility] [address] [address] [address] Shayne Roldan pH (U) 6.0 [pH] Normal 5-9 [facility] Comment on above: Performed By: #### U AMIC #### [facility] [address] [address] [address] Shayne Roldan RBC NONE SEEN Abnormal 0-2 [facility] Comment on above: Performed By: #### U AMIC #### [facility] [address] [address] [address] Shayne Roldan SPEC GRAVITY <=1.005 Abnormal 1.005-<=1.025 The [facility] Comment on above: Performed By: #### U AMIC #### [facility] [address] [address] [address] Shayne Roldan UA PROTEIN Negative Normal NEGATIVE/ TRACE [facility] Comment on above: Performed By: #### U AMIC #### [facility] [address] [address] [address] Shayne Roldan Urobilinogen Qn (U) 0.2 {Rogelio'U}/dL Normal 0.2 - 1. 0 [facility] Comment on above: Performed By: #### U AMIC #### [facility] [address] [place] [address] Dr. Shayne Roldan WBC 5-10 Abnormal NONE SEEN [facility] Comment on above: Performed By: #### U AMIC #### [facility] [address] [place] [address] Dr. Shayne Roldan URIC ACID SERUMon 08-05-2022 Urate [Mass/Vol] 6.5 mg/dL Critically high 2.6-6.0 [facility] Comment on above: Performed By: #### M G, RENAL, URIC #### [facility] [address] [address] [address] Shayne Roldan URINE T PROTEIN CREAT RATIOo n 08-05-2022 Protein (U) [Mass/Vol] 4.8 mg/dL Normal <=12.0 [facility] Comment on above: Performed By: #### U RTPCR #### [facility] [address] [address] [address] Shayne Roldan UR PROT CREAT RAT 0.09 Normal [facility] Comment on above: Performed By: #### U RTPCR #### [facility] [address] [address] [address] Shayne Roldan URINE CREAT 52.65 mg/dL Normal 20.00-300.00 [facility] Comment on above: Performed By: #### U RTPCR #### [facility] [address] [address] [address] Shayne Roldan VITAMIN D 25 OHon 08-05-2022 VIT D 25-OH 38.9 ng/mL Normal [facility] Comment on above: Performed By: #### M G, RENAL, URIC #### [facility] [address] [place] [address] Dr. Shayne Roldan VIT D RANGES SEE BELOW Normal [facility] Comment on above: Result Comment: <20 ng/mL Vit D deficient 20 - <30 ng/mL Vit D insufficient 30 - 100 ng/mL Vit D sufficient >100 ng/mL Potential Toxicity Performed By: #### M G, RENAL, URIC #### [facility] [address] [place] [address] Dr. Shayne Roldan IMMUNOGLOBULINS IGA/IGM/IGG/ IGE QUANTITAon 07-12-2022 Immunoglobulin A, Qn, Serum 295 mg/dL Normal 87-352 [facility] Comment on above: Result Comment: Perf ormed at: CB Performed By: #### M G, RENAL, URIC #### [facility] [address] [address] [address] Shayne Roldan Immunoglobulin E, Total 32 IU/mL Normal 6-495 [facility] Comment on above: Result Comment: Perf ormed at: BN Performed By: #### M G, RENAL, URIC #### [facility] [address] [address] [address] Shayne Roldan Immunoglobulin G, Qn, Serum 729 mg/dL Normal 586-1602 [facility] Comment on above: Result Comment: Perf ormed at: CB Performed By: #### M G, RENAL, URIC #### [facility] [address] [address] [address] Shayne Roldan Immunoglobulin M, Qn, Serum 75 mg/dL Normal 26-217 [facility] Comment on above: Result Comment: Perf ormed at: CB Performed By: #### M G, RENAL, URIC #### [facility] [address] [address] [address] Shayne Roldan Abstracton 07-08-2022 Abstract [id number] Nell Champion chioma Fan 1955 F Date Provider Department Center 07/08/2022 JOHANNA MEDINA [facility] Family History Problem Relation Age of Onset Heart failure Mother Heart disease Father Family Status - Relation Status Age at Mother Father Normal [facility] CBC AUTO DIFFon 07-05-2022 BASO # 0.1 103/ul Normal 0.0-0.1 [facility] Comment on above: Performed By: #### M G, RENAL, URIC #### [facility] [address] [address] [address] Shayne Roldan Basophils/100 WBC (Bld) 0.7 % Normal 0.2-2.0 [facility] Comment on above: Performed By: #### M G, RENAL, URIC #### [facility] [address] [address] [address] Shayne Roldan EO # 0.4 103/ul Normal 0.0-0.7 [facility] Comment on above: Performed By: #### M G, RENAL, URIC #### [facility] [address] [address] [address] Shayne Roldan Eosinophils/100 WBC (Bld) 4.4 % Normal 0.9-7.0 [facility] Comment on above: Performed By: #### M G, RENAL, URIC #### [facility] [address] [address] [address] Shayne Roldan Erythrocyte distribution width (RBC) [Ratio] 12.6 % Normal 11.0-15.0 [facility] Comment on above: Performed By: #### M G, RENAL, URIC #### [facility] [address] [place] [address] Dr. Shayne Roldan Hematocrit (Bld) [Volume fraction] 40.2 % Normal 36.0-48.0 [facility] Comment on above: Performed By: #### M G, RENAL, URIC #### [facility] [address] [place] [address] Dr. Shayne Roldan Hemoglobin (Bld) [Mass/Vol] 13.6 g/dL Normal 12.0-16.0 [facility] Comment on above: Performed By: #### M G, RENAL, URIC #### [facility] [address] [place] [address] Dr. Shayne Roldan IG # 0.07 10e3/ul Critically high 0.00-0.03 [facility] Comment on above: Performed By: #### M G, RENAL, URIC #### [facility] [address] [place] [address] Dr. Shayne Roldan IG % 0.8 % Critically high 0.0-0.5 [facility] Comment on above: Performed By: #### M G, RENAL, URIC #### [facility] [address] [place] [address] Dr. Shayne Roldan LYMPH # 2.3 103/ul Normal 1.2-3.8 [facility] Comment on above: Performed By: #### M G, RENAL, URIC #### [facility] [address] [place] [address] Dr. Shayne Roldan Lymphocytes/100 WBC (Bld) 24.7 % Normal 20.5-60.0 [facility] Comment on above: Performed By: #### M G, RENAL, URIC #### [facility] [address] [place] [address] Dr. Shayne Roldan MANUAL DIFF REQ NO Normal [facility] Comment on above: Performed By: #### M G, RENAL, URIC #### [facility] [address] [place] [address] Dr. Shayne Roldan MCH (RBC) [Entitic mass] 30.7 pg Normal 26.7-34.0 [facility] Comment on above: Performed By: #### M G, RENAL, URIC #### [facility] [address] [place] [address] Dr. Shayne Roldan MCHC (RBC) [Mass/Vol] 33.8 g/dL Normal 29.9-35.2 [facility] Comment on above: Performed By: #### M G, RENAL, URIC #### [facility] [address] [place] [address] Dr. Shayne Roldan MCV (RBC) [Entitic vol] 90.7 fL Normal 81.0-99.0 [facility] Comment on above: Performed By: #### M G, RENAL, URIC #### [facility] [address] [place] [address] Dr. Shayne Roldan MONO # 0.7 103/ul Normal 0.3-0.8 [facility] Comment on above: Performed By: #### M G, RENAL, URIC #### [facility] [address] [place] [address] Dr. Shayne Roldan Monocytes/100 WBC (Bld) 7.7 % Normal 1.7-12.0 [facility] Comment on above: Performed By: #### M G, RENAL, URIC #### [facility] [address] [place] [address] Dr. Shayne Roldan NEUT # 5.7 103/ul Normal 1.4-6.5 [facility] Comment on above: Performed By: #### M G, RENAL, URIC #### [facility] [address] [place] [address] Dr. Shayne Roldan Neutrophils/100 WBC (Bld) 61.7 % Normal 43.0-75.0 [facility] Comment on above: Performed By: #### M G, RENAL, URIC #### [facility] [address] [place] [address] Dr. Shayne Roldan Platelet mean volume (Bld) [Entitic vol] 8.8 fL Critically low 9.5-13.5 [facility] Comment on above: Performed By: #### M G, RENAL, URIC #### [facility] [address] [place], [place] [address] Dr. Shayne Roldan PLT 279 103/ul Normal 150-450 [facility] Comment on above: Performed By: #### M G, RENAL, URIC #### [facility] [address] [place], [place] [address] Dr. Shayne Roldan RBC 4.43 106/ul Normal 4.20-5.40 [facility] Comment on above: Performed By: #### M G, RENAL, URIC #### [facility] [address] [place], [place] [address] Dr. Shayne Roldan WBC 9.1 103/ul Normal 4.0-11.0 [facility] Comment on above: Performed By: #### M G, RENAL, URIC #### [facility] [address] [place], [place] [address] Dr. Shayne Roldan [facility]on SARS-CoV-2 (COVID-19) RNA KAYLEE+probe Ql (Unsp spec) Not detected Normal NOT DETECTED [facility] Comment on above: Result Comment: This test is not yet approved or cleared by the [place] FDA. When there are no FDA-approved or cleared tests available, and other criteria are met, FDA can make tests available under an emergency access mechanism called an Emergency Use Authorization (EUA). The EUA for this test is supported by the [place] of Health and Human Service's (HHS's) declaration [...] By: #### M G, RENAL, URIC #### [facility] [address] [address] [address] Shayne Roldan XR CHEST 2 Von [...] NARDA LONDONO Date: 2022-06-08 19:58 Normal [facility] Covid-19 PCR ([facility])on SARS-CoV-2 (COVID-19) RNA KAYLEE+probe Ql (Unsp spec) Not detected Normal NOT DETECTED [facility] Comment on above: Result Comment: This test is not yet approved or cleared by the [place] FDA. When there are no FDA-approved or cleared tests available, and other criteria are met, FDA can make tests available under an emergency access mechanism called an Emergency Use Authorization (EUA). The EUA for this test is supported by the [place] of Health and Human Service's (HHS's) declaration [...] consistent with SARS-CoV-2. Performed By: #### [facility] #### [facility] [address] [place], [place] [address] Dr. Shayne Roldan DEXA AXIALon 03-01-2022 DEXA AXIAL [facility] Department of Radiology [address] [place] [id number] Patient Name: DIANA CHAMPION : 1955 [...] characteristics. Electronically signed: Luzma Fernandez. Transcribed by: [email or web address], User Resident: Electronically Signed by: LUZMA FERNANDEZ @ 03/02/2022 01:07 PM Normal [facility] SCOLIOSIS 2 [facility] 02-24-2022 SCOLIOSIS 2 [facility] Department of Radiology [address] [place] [id number] Patient Name: DIANA CHAMPION : 1955 Sex: F Age: Race: White Pt. Location: Patient Status: D Ordered Date: 02/24/2022 1:25:00 PM Completed Date: 02/24/2022 01:44 PM Requesting Provider: CINDA ANTONIO Attending Provider: Report Copy To: Signs & Symptoms: M43.10 Spondylolisthesis, site unspecified I10 History: Comments: Views (X-RAY, SCOLIOSIS): PA, Lateral evaluate Exam: SCOLIOSIS 2 [facility] Scoliosis. Worsening pain. Frontal and lateral thoracolumbar spine IMPRESSION: 1. Diffuse disc disease and facet arthritis. Right convex mid lumbar curvature measuring 16 degrees. Interbody fusion hardware lower lumbar spine. Electronically signed: Hugo Lynn. Transcribed by: [email or web address], User Resident: Electronically Signed by: HUGO LYNN @ 02/26/2022 11:07 AM Normal [facility] Comment on above: Order Comment: Views (X-RAY, SCOLIOSIS): PA, Lateral evaluate CT LUMBAR SPINE W CONTRASTon 01-24-2022 CT LUMBAR SPINE W CONTRAST [facility] Department of Radiology [address] [place] [phone] Patient Name: DIANA CHAMPION : 1955 [...] L1-2. Electronically signed: Gaurang Lawrence. Transcribed by: [email or web address], User Resident: Electronically Signed by: GAURANG LAWRENCE @ 01/26/2022 08:58 AM Normal [facility] Comment on above: Order Comment: , CT MYELOGRAM>PAPER WORK IN CHART LUMBAR MYELOGRAMon 2 LUMBAR MYELOGRAM [facility] Department of Radiology [address] [place] [phone] Patient Name: DIANA CHAMPION : 1955 Sex: F Age: Race: White Pt. Location: Patient Status: O Ordered Date: 01/09/2022 9:00:00 AM Completed Date: 01/24/2022 02:37 PM Requesting Provider: JOO LINN Attending Provider: JOO LINN Report Copy To: UNKNOWN, PHYSICIAN Signs & Symptoms: M54.16 Radiculopathy, lumbar region I10 History: [place] Is patient on thinners? 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 Consent was obtained. Timeout: [place] protocol timeout verification performed. PROCEDURE: Estimated blood [...] report. Electronically signed: Greg Marlow. Transcribed by: [email or web address], User Resident: DEBBIE JI Electronically Signed by: GREG MARLOW @ 01/24/2022 04:07 PM I personally read this/these film(s) with this resident Normal [facility] Comment on above: Order Comment: , CT MYELOGRAM> PAPER WORK SCANNED IN CHART , CT MYELOGRAM> PAPER WORK SCANNED IN CHART , , , Ordering Provider - JOO LINN MD , HIP LEFT 1 OR 2 VWS WITH PEL VISon 01-06-2022 HIP LEFT 1 OR 2 VWS WITH PELVIS [facility] Department of Radiology [address] [place] [phone] Patient Name: DIANA CHAMPION : 1955 [...] hardware. Electronically signed: Joe Matthew. Transcribed by: [email or web address], User Resident: Electronically Signed by: JOE MATTHEW @ 01/09/2022 04:45 PM Normal [facility] Comment on above: Order Comment: Evalu ate Vital Signs Date Time Vital Sign Value Performing Clinician Facility 08-17-2023 09:20-0400 Body height 165.1 cm Herberth Joana Other [facility] Other 08-17-2023 09:20-0400 Body mass index (BMI) [Ratio] 38.1 kg/m2 Herberth Joana Other [facility] Other 08-17-2023 09:20-0400 Body temperature 98.8 [degF] Herberth Joana Other [facility] Other 08-17-2023 09:20-0400 Body weight 103.87 kg Herberth Joana Other [facility] Other 08-17-2023 09:20-0400 Diastolic blood pressure 85 mm[Hg] Herberth Joana Other [facility] Other 08-17-2023 09:20-0400 Respiratory rate 18 /min Herberth Joana Other [facility] Other 08-17-2023 09:20-0400 SaO2% (BldA) [Mass fraction] 94 % Herberth Joana Other [facility] Other 08-17-2023 09:20-0400 Systolic blood pressure 151 mm[Hg] Herberth Joana Other [facility] Other 03-02-2023 10:00-0400 Body height 165.1 cm Herberth Joana Other [facility] Other 03-02-2023 10:00-0400 Body mass index (BMI) [Ratio] 37.29 kg/m2 Herberth Joana Other [facility] Other 03-02-2023 10:00-0400 Body temperature 98.9 [degF] Herberth Joana Other [facility] Other 03-02-2023 10:00-0400 Body weight 101.65 kg Herberth Joana Other [facility] Other 03-02-2023 10:00-0400 Diastolic blood pressure 76 mm[Hg] Herberth Joana Other [facility] Other 03-02-2023 10:00-0400 Respiratory rate 20 /min Herberth Joana Other [facility] Other 03-02-2023 10:00-0400 SaO2% (BldA) [Mass fraction] 96 % Herberth Joana Other [facility] Other 03-02-2023 10:00-0400 Systolic blood pressure 136 mm[Hg] Herberth Joana Other [facility] Other 12-08-2022 09:30-0500 Diastolic blood pressure 59 mm[Hg] MD Shaikh Ohara Work Phone: [facility] 12-08-2022 09:30-0500 Heart rate 55 /min MD Shaikh Ohara Work Phone: [facility] 12-08-2022 09:30-0500 Respiratory rate 16 /min MD Shaikh Ohara Work Phone: [facility] 12-08-2022 09:30-0500 SaO2% (BldA) [Mass fraction] 96 % MD Shaikh Ohara Work Phone: [facility] 12-08-2022 09:30-0500 Systolic blood pressure 112 mm[Hg] MD Shaikh Ohara Work Phone: [facility] 12-08-2022 06:54-0500 Body height 162.56 cm MD Shaikh Ohara Work Phone: [facility] 12-08-2022 06:54-0500 Body temperature 98.2 [degF] MD Shaikh Ohara Work Phone: [facility] 12-08-2022 06:54-0500 Body weight 104.32 kg MD Shaikh Ohara Work Phone: [facility] 08-09-2022 11:00-0400 Body height 165.1 cm Herberth Joana Other [facility] Other 08-09-2022 11:00-0400 Body mass index (BMI) [Ratio] 37.87 kg/m2 Herberth Joana Other [facility] Other 08-09-2022 11:00-0400 Body temperature 97.2 [degF] Herberth Joana Other [facility] Other 08-09-2022 11:00-0400 Body weight 103.24 kg Herberth Joana Other [facility] Other 08-09-2022 11:00-0400 Diastolic blood pressure 88 mm[Hg] Herberth Joana Other [facility] Other 08-09-2022 11:00-0400 Respiratory rate 20 /min Herberth Joana Other [facility] Other 08-09-2022 11:00-0400 SaO2% (BldA) [Mass fraction] 95 % Herberth Joana Other [facility] Other 08-09-2022 11:00-0400 Systolic blood pressure 133 mm[Hg] Herberth Joana Other [facility] Other 11-17-2021 10:40-0500 Body height 165.1 cm Herberth Joana Other [facility] Other 11-17-2021 10:40-0500 Body mass index (BMI) [Ratio] 37.97 kg/m2 Herberth Joana Other [facility] Other 11-17-2021 10:40-0500 Body temperature 97.8 [degF] Herberth Joana Other [facility] Other 11-17-2021 10:40-0500 Body weight 103.51 kg Herberth Joana Other [facility] Other 11-17-2021 10:40-0500 Diastolic blood pressure 70 mm[Hg] Herberth Joana Other [facility] Other 11-17-2021 10:40-0500 Respiratory rate 18 /min Herberth Joana Other [facility] Other 11-17-2021 10:40-0500 SaO2% (BldA) [Mass fraction] 94 % Herberth Joana Other [facility] Other 11-17-2021 10:40-0500 Systolic blood pressure 130 mm[Hg] Herberth Rivera Other [facility] Other 08-30-2021 13:15-0400 Body height 165.1 cm Rena Ginty Other [facility] Other 08-30-2021 13:15-0400 Body mass index (BMI) [Ratio] 36.61 kg/m2 Rena Ginty Other [facility] Other 08-30-2021 13:15-0400 Body temperature 98.7 [degF] Rena Ginty Other [facility] Other 08-30-2021 13:15-0400 Body weight 99.79 kg Rena Ginty Other [facility] Other 08-30-2021 13:15-0400 SaO2% (BldA) [Mass fraction] 90 % Rena Ginty Other [facility] Other Encounters Encounter Date Encounter Type Care [...] End: 11-14-2023 ambulatory Jayshree Vargas MD Facility: [facility] Start: 11-02-2023 End: 11-02-2023 ambulatory SHAIKH LEV Not Available Start: 10-09-2023 End: 10-10-2023 [facility] Start: 10-04-2023 End: 10-04-2023 ambulatory SHAIKH CARLYD Not Available Start: 09-07-2023 End: 09-07-2023 ambulatory Herberth Joana Other [facility] Other Start: 09-07-2023 Telephone encounter Herberth Joana [facility] Start: 08-28-2023 End: 08-28-2023 ambulatory Herberth Joana Other [facility] Other Start: 08-28-2023 Telephone encounter Herberth Joana [facility] Start: 08-21-2023 End: 08-22-2023 ambulatory Jayshree Vargas MD Facility: [facility] Start: 08-17-2023 End: 08-17-2023 ambulatory Herberth Joana Other [facility] Other Start: 08-17-2023 Office outpatient visit 25 minutes Herberth Joana [facility] Start: 05-08-2023 End: [facility] Start: 04-04-2023 End: 04-04-2023 ambulatory SHAIKH Dimitry OHARA Facility:[facility] Start: 03-24-2023 End: 03-25-[address] STEPH GRANADOS Facility:[facility] Start: 03-23-2023 ambulatory JOO LAWRENCE [facility] Start: 03-02-2023 End: 03-02-2023 ambulatory Herberth Joana Other [facility] Other Start: 03-02-2023 Office outpatient visit 25 minutes Herberth Joana [facility] Start: 02-25-2023 End: 02-26-2023 ambulatory HERBERTH JOANA Facility:[facility] Start: 02-22-2023 End: 02-23-2023 ambulatory BO MCCLAIN . Facility:[facility] Start: 12-15-2022 End: 12-16-[address] JACK HALL . Facility:[facility] Start: 12-08-2022 End: 12-08-2022 ambulatory Shaikh Lev Facility:[facility] Start: 12-08-2022 End: 12-08-2022 Admission to same day surgery center MD Shaikh Ohara Work Phone: [facility] Work Phone: Start: 12-08-2022 End: 12-08-2022 ambulatory MD Shaikh Ohara Work Phone: [facility] Work Phone: Start: 11-11-2022 End: 11-11-[address] JACK HALL . Facility:[facility] Start: 11-09-2022 End: 11-09-2022 ambulatory Aziz Bakhous Other [facility] Other Start: 11-09-2022 Telephone encounter Aziz Bakhous [facility] Start: 08-19-2022 End: 08-20-2022 ambulatory HERBERTH JOANA Facility:[facility] Start: 08-09-2022 End: 08-09-2022 ambulatory Herberth Joana Other [facility] Other Start: 08-09-2022 Office outpatient visit 10 minutes Herberth Joana [facility] Start: 08-09-2022 Telephone encounter Herberth Joana [facility] Start: 08-05-2022 Telephone encounter Herberth Joana [facility] Start: 08-05-2022 End: 08-06-2022 ambulatory HERBERTH JOANA [facility] [employer] Other Start: 07-08-2022 End: 07-08-2022 ambulatory Gato Reynoldsormack Other [facility] Other Start: 07-08-2022 Telephone encounter Gato Manasaian ck [facility] Start: 07-05-2022 End: 07-06-2022 ambulatory SAUNDERS H FAWWAD Facility:[facility] Start: 06-08-2022 End: 06-09-2022 ambulatory SAUNDERS H FAWWAD Facility:[facility] Start: 06-07-2022 End: 06-07-2022 ambulatory SAUNDERS H FAWWAD Facility:[facility] Start: 01-24-2022 End: 01-25-2022 ambulatory PHYSICIAN UNKNOWN Facility:[facility] Start: 11-17-2021 End: 11-17-2021 ambulatory Herberth Joana Other [employer] Other Start: 11-17-2021 Office outpatient visit 15 minutes Herberth Joana [facility] Start: 08-30-2021 Office outpatient visit 15 minutes Rena Hurd [facility] Start: 09-11-2020 End: 09-11-2020 Chart abstracting Miguelito Buck Work Phone: Hematology/Oncology Start: 09-11-2020 End: 09-11-2020 Patient encounter procedure External Provider [facility] Start: 09-11-2020 Results Only External Provider Exter nal[facility] Start: 09-30-2019 End: 09-30-2019 [facility] [place] Start: 07-07-2017 End: 07-07-2017 Admission to day surgery [facility] Start: 05-24-2004 Evaluation and management of inpatient Steph [facility] Start: 06-21-2004 Evaluation and management of inpatient Steph Marinellijohn [facility] Procedures Date Procedure Procedure Detail Performing Clinician Start: 12-08-2022 Colonoscopy MD Shaikh Ohara Work Phone: Start: 09-11-2020 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 Timber Management Assistant al Provider Start: 09-11-2020 EXTERNAL LAB External P rovider Start: 09-11-2020 EXTERNAL PROCEDURE Exte rnal Provider Start: 09-30-2019 Ultrasonography of b ilateral kidneys Steph Collier Plan of Treatment Date Care Activity Detail Author Start: 12-08-2022 [facility] Start: 07-07-2020 Influenza vaccination INFLUENZA (#1) [facility] Start: 2006 SHINGRIX VACCINE (1 of 2) SHINGRIX VACCINE (1 of 2) [facility] Start: 2006 Tuberculosis screening COLORECTAL CANCER SCREENING,SEE MODIFIER [facility] Start: 2001 DIABETES SCREEN DIABETES SCREEN [facility] Start: 2001 LIPID SCREEN LIPID SCREEN [facility] Start: 1996 Mammography MAMMOGRAM [facility] Start: 1986 HPV TESTING HPV TESTING [facility] Start: 1977 PAP TESTING PAP TESTING [facility] Start: 1975 Urine microalbumin profile DTAP,TDAP,TD (1 - Tdap) [facility] Start: 1974 HEPATITIS C SCREENING HEPATITIS C SCREENING [facility] Start: 1974 HIV SCREENING HIV SCREENING [facility] Patient Education Colon Polypect shahram Hemorrhoids (DC) Diverticulosis (DC) [facility] Work Phone: [facility] Immunizations Immunization Date Immunization Notes Care Provider Henrietta charles 07-18-2018 Depo-Medrol 40 mg Rena Gint y Other [employer] Other 01-31-2018 Depo-Medrol 40 mg Rena Gint y Other [employer] Other 08-09-2017 influenza, seasonal, injectable, preservative free Rena Ginty Other [employer] Other Payers Date Payer Category Payer Unknown 2022 Self-pay [id number] 2021 Medicare [id number] 2020 Medicaid [id number] 2019 Medicaid MEDICAID [facility] MEDICAID [id number] 2019-Present Medicaid [id number] 2016 Medicare MEDICARE MEDICAR E A AND B [id number] 2016-Present [place] Medicare [id number] 1959 Unknown [id number] 1956 Unknown [id number] 2.16.840.1.046839.3.579.2.647 1956 Unknown [id number] 2.16.840.1.116126.3.579.2.593 1956 Unknown [id number] 2.16.840.1.105569.3.579.2.593 1956 Unknown [id number] 2.16.840.1.374872.3.579.2.593 1956 Unknown [id number] 2.16.840.1.538258.3.579.2.593 1956 Unknown [id number] 2.16.840.1.182200.3.579.2.593 1956 Unknown [id number] 2.16.840.1.106776.3.579.2.593 1956 Unknown [id number] 2.16.840.1.939419.3.579.2.593 1956 Unknown [id number] 2.16.840.1.878519.3.579.2.593 1956 Unknown [id number] 2.16.840.1.273795.3.579.2.593 1956 Unknown [id number] 2.16.840.1.152873.3.579.2.593 1956 Unknown [id number] 2.16.840.1.231288.3.579.2.593 1956 Unknown [id number] 2.16.840.1.774760.3.579.2.1259 1956 Unknown [id number] 2.16.840.1.241890.3.579.2.1259 1956 Unknown [id number] 2.16.840.1.738214.3.579.2.1259 1956 Unknown [id number] 2.16.840.1.697563.3.579.2.1259 1956 Unknown [id number] 2.16.840.1.493066.3.579.2.1259 1956 Unknown [id number] 2.16.840.1.001362.3.579.2.1259 1956 Unknown [id number] 2.16.840.1.102605.3.579.2.1259 1956 Unknown [id number] 2.16.840.1.248648.3.579.2.196 1956 Unknown [id number] 2.16.840.1.619563.3.579.2.196 1956 Unknown [id number] 2.16.840.1.322737.3.579.2.196 1956 Unknown [id number] 2.16.840.1.864452.3.579.2.196 1956 Unknown [id number] 2.16.840.1.326222.3.579.2.196 Medicare [id number] Unknown HCAP/HFA/FAP Active [id number] Unknown [id number] 2.16.840.1.368967.3.579.2.531 Social History Date Type Detail Facility Tobacco smoking stat us [facility] Unknown if ever smoked [facility] Start: 1955 Sex Assigned At Female F [facility] Start: 09-11-2020 End: 12-08-2022 Tobacco smoking status NHIS Never smoker [facility] Start: 09-11-2020 Tobacco use and exposure Never used [facility] Start: 09-11-2020 Alcohol intake Lifetime non-d my (finding) [facility] Start: 09-11-2020 History SDOH Alcohol Frequency 1 [facility] Sex Assigned At Not on file [facility] Sex Assigned At Sex Assigned At Bir th [employer] [facility] Other Goals Date Patient Goal Desired Activity /State Clinical Notes 08-30-2021 to 09-07-2023 Note Date & Type Note Facility 09-07-2023 Evaluation note Encounter Date Diagnosis Assessment Notes Sep, Hypomagnesemia (ICD-10 - E83.42) [facility] Other 10-23-2023 Evaluation note* Encounter Date Diagnosis Assessment Notes Treatment Notes Treatment Clinical Notes Aug, 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 Continue oral Magnesium [employer] [facility] Chief Complaint: Patient here for 1 year follow up CAD and hypertension. She was recently discharged from [facility] for Covid-19. She says hydrochlorothiazide was [...] breath since then. She has seen her manufacturing technology analyst. Her chest pain is noncardiac. She has no other cardiac complaints. Cardiology ROS: Review of Systems Cardiovascular: Positive for chest pain and dyspnea on exertion. Respiratory: Positive for wheezing. Musculoskeletal: Positive for arthritis, back pain, joint pain and myalgias. Neurological: Positive for light-headedness. All other systems reviewed and are negative. Past Medical History She has a past medical history of Cancer (CMS/[facility]) and Hypertension. Surgical History She has a [...] 325 mg by mouth., Disp: , Rfl: pvlnxtfnkee-rzhqxqhdo-ioeqnaqq 100-62.5-25 mcg blister with device, , Disp: [...] no increased eff (more content not included)...[facility]05-19-2023 NotePROCEDURE: XR HIP RT 2 3V W PELVIS HISTORY: Pain in right hip joint , chronic COMPARISON: XR L-spine 02/26/2019, XR left hip with pelvis 03/11/2017 FINDINGS: BONES:Complete loss of the right hip joint space with eszb-ze-gxpk articulation, subchondral sclerosis and cysts, and large periarticular degenerative osteophytes. No fracture or dislocation. Left hip replacement. Mechanical fusion of L5-S1 and moderate dextroscoliosis of lumbar spine. SOFT TISSUES:No visible soft tissue swelling. EFFUSION:None visible. OTHER: Negative. IMPRESSION: 1. Marked degenerative joint disease of the right hip; progressed since prior study. 2. Stable surgical changes. 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 [...] be an additional personal documentation from me.[facility]04-27-2023 Evaluation note* Encounter Date Diagnosis [...] PPI induced GI losses. Continue oral Magnesium [employer] Other 02-02-2023 Procedure [facility]01-04-2023 Evaluation note* Encounter Date Diagnosis Assessment Notes Treatment Notes Treatment Clinical Notes Nov, Hypokalemia (ICD-10 - E87.6) Nov, Hypomagnesemia (ICD-10 - E83.42) [employer] Other 10-04-2022 Evaluation note* Encounter Date Diagnosis [...] office does not accept her new insurance. [employer] Other 09-02-2022 Evaluation note* Encounter Date Diagnosis Assessment Notes Treatment Notes Treatment Clinical Notes Jul, History of colon cancer (ICD-10 - Z85.038) [employer] Other 01-12-2022 Evaluation note* Encounter Date Diagnosis [...] potassium wasting. I have prescribed oral potassium. [employer] Other [id number] Evaluation note* Encounter Date Diagnosis Assessment Notes [...] care instructions given in writting by [facility] Care At Home document [employer] Other Evaluation noteNo InformationNort [employer] Other Evaluation note* Diagnosis Onset Date Resolution Status History of colon cancer [facility] Work Phone: History general [...] IN 08/2019 Hospitalization History HIP REVISION 03/2020 [employer] Other History general Narrative - Reported* Type [...] Hospitalization History COVID X 2 WEEKS 04/2023 [employer] Other Hospital Discharge instructions Additional Instructions DISCHARGE [...] if you have any problems. -Office number [phone] Work Phone: Advance Directives No Advanced [...] or prosecute any alcohol or drug abuse patient.[facility] the event this information is protected by the Federal Confidentiality of Alcohol and Drug Abuse Patient Records regulations: The Federal rules restrict any use of the information to criminally investigate or prosecute any alcohol or drug abuse patient.[facility] the event this information is protected by the Federal Confidentiality of Alcohol and Drug Abuse Patient Records regulations: The Federal rules restrict any use of the information to criminally investigate or prosecute any alcohol or drug abuse patient.[facility] the event this information is protected by the Federal Confidentiality of Alcohol and Drug Abuse Patient Records regulations: The Federal rules restrict any use of the information to criminally investigate or prosecute any alcohol or drug abuse patient.[facility] INFORMATION SOURCE (unrecogn ized section and content) DATE CREATED AUTHOR 03/03/2022 [facility] DATE CREATED AUTHOR AUTHOR'S ORGANIZ ATION 04/17/2023 [facility] DATE CREATED AUTHOR AUTHOR'S ORGANIZ ATION 05/08/2023 [facility] DATE CREATED AUTHOR AUTHOR'S ORGANIZ ATION 06/07/2023 [facility] DATE CREATED AUTHOR AUTHOR'S ORGANIZ ATION 02/26/2024 [facility] DATE CREATED AUTHOR AUTHOR'S ORGANIZ ATION 02/28/2024 [facility] REASON FOR VISIT (unrecogniz ed section and content) #14 BLACK ALICIA, COUGH, CONGES TIONCKDCLINICALNo InformationCKD and HYpokalemiaClinicalClinicalCKD and HTNCKD and HTNREFILLREFILL Care Teams (unrecognized sec tion and content) Team Status: Inactive Member Role Status Dates Gato Dmoingo MD Attending Provider Active Shaikh Lev MD [...] BE BASED ON THE PRIMARY CLINICAL RECORDS. [facility] [employer]. provides no warranty or guarantee of the accuracy or completeness of information in this document.
[2024-03-06 16:00] LABS: Creatinine Urine Random 63.27 mg/dL (20.00-300.00); Total Protein Urine Random <6.0 mg/dL (<=11.9)
[2024-03-06 16:05] LABS: Hematocrit 38.7 % (36.0-48.0); Hemoglobin 12.2 g/dL (12.0-16.0); Mean Corpuscular HGB Conc 31.5 g/dL (29.9-35.2); Mean Corpuscular Hemoglobin 30.4 pg (26.7-34.0); Mean Corpuscular Volume 96.5 fL (81.0-99.0); Mean Platelet Volume 9.1 fL (9.5-13.5); Platelet Count 247 10^3/uL (150-450); Red Blood Count 4.01 10^6/uL (4.20-5.40); Red Cell Distribution Width 13.2 % (11.0-15.0); White Blood Count 8.1 10^3/uL (4.0-11.0)
[2024-03-06 16:44] LABS: Anion Gap 10.2; BUN Creatinine Ratio 16.5; Calcium 8.8 mg/dL (8.5-10.1); Carbon Dioxide 32.2 mmol/L (21.0-32.0); Chloride 104 mmol/L (98-107); Estimated GFR (African America >60 (>=60); Estimated GFR (Non-African Ame 57 (>=60); Glucose 67 mg/dL (74-106); Magnesium 1.9 mg/dL (1.8-2.4); Phosphorus 3.2 mg/dL (2.6-4.7); Potassium 3.4 mmol/L (3.5-5.1); Sodium 143 mmol/L (136-145)
[2024-03-07 13:09] LABS: PTH, Intact 36 pg/mL (15-65)
== END 2024-03-06 14:52 | disposition home or self-care (01) ==
LOC: LAB 14:52
PROVIDERS: PCP Internal Medicine; Visit Provider Internal Medicine
DX: I12.9 Hypertensive chronic kidney disease with stage 1 through stage 4 chronic kidney disease, or unspecified chronic kidney disease (principal); N18.30 Chronic kidney disease, stage 3 unspecified; N25.81 Secondary hyperparathyroidism of renal origin; E79.0 Hyperuricemia without signs of inflammatory arthritis and tophaceous disease; E87.6 Hypokalemia; E83.42 Hypomagnesemia
CPT/HCPCS: 36415; 80069; 81001; 82306; 82570; 83735; 83970; 84156; 84550; 85027

== ENCOUNTER 2024-03-26 15:03 | Outpatient (OUT) | payer OTHER, SELFPAY ==
--- NOTE | 2024-03-26 15:10 | XR_ITS ---
The [address] [address] Patient Name: JHONATAN MONTOYA MRN: [id number] date: 1955 Sex: F Assigned Patient Location: [facility] Current Patient Location: Accession/Order Number: [id number] Exam Date: 03/26/2024 15:13 Report Date: 03/27/2024 07:50 At the request of: JOSE MAHAJAN Procedure: XR thoracic spine 3V EXAMINATION: XR thoracic spine 3V HISTORY: Thoracic spondulosis COMPARISON: No relevant comparison available. FINDINGS: BONES: Moderate widespread spondylosis and facet osteoarthritis. No visible acute bony abnormality. DISC SPACES: Mild widespread disc height narrowing. PARASPINOUS: Negative. No paraspinous abnormality is seen. OTHER: Negative. XR/XR thoracic spine 3V IMPRESSION: Moderate degenerative spondylosis Electronically authenticated by: BRITTANY VANESSA Date: 03/27/2024 07:50
== END 2024-03-26 15:04 | disposition home or self-care (01) ==
LOC: RAD 15:04
PROVIDERS: PCP Internal Medicine; Visit Provider Nurse Practitioner
DX: M47.814 Spondylosis without myelopathy or radiculopathy, thoracic region (principal)
CPT/HCPCS: 72072

== ENCOUNTER 2024-03-27 08:13 | Outpatient (OUT) | payer OTHER, SELFPAY ==
--- NOTE | 2024-03-27 08:25 | P.CN_ITS ---
Consult Note: HPI Data of Consult Patient: known to practice within the last 3 years Requesting Physician: Violet Saucedo NP Primary Care Provider: Shaikh Lev MD Consult Narrative Reason for consult: f/u Narrative: Diana Champion a pleasant 68 year old female presents for evaluation and management of middle and low back pain. Today rating pain 0/10 in low back, pain in upper back 3-4/10 sharp pressure increasing with standing walking activity and cold weather, increased to moderate to severe. Recently underwent bilateral L4-5 TFESI for lumbar stenosis with NC and lumbar radiculopathy with 70% improvement ongoing. Patient was hospitalized and did not complete bilateral L3- 4 TFESI. PT has failed to benefit from PT and conservative measures in the past, hx of L5-S1 fusion. Patient needs a right ELZA but is unable to do that at this time. Patient is following with pulmonology and PCP for pneumonia and chronic lung disease, on continuous o2. Recent hospitalization for pneumonia, now utilizing a vest to break up pulmonary secretions. Patient recently underwent thoracic xray which is consistent with moderate degenerative changes and multilevel facet arthropathy cc:: CC: Violet Saucedo NP Review of Systems ROS Status of ROS 10 or more systems reviewed and unremark able except as noted in history and below Respiratory Reports: cough and chest congestion Musculoskeletal Reports: back pain PFSH PFSH Medical History Hypomagnesemia ?E83.42 - Hypomagnesemia (ICD-10) Acute hypokalemia ?E87.6 - Hypokalemia (ICD-10) Pneumonia ?J18.9 - Pneumonia, unspecified organism (ICD-10) Acute exacerbation of chronic obstructive pulmonary disease ?J44.1 - Chronic obstructive pulmonary disease with (acute) exacerbation (ICD-10) CAD (coronary artery disease) ?I25.10 - Atherosclerotic heart disease of [place] coronary artery without angina pectoris (ICD-10) Chronic heart failure with preserved ejection fraction (HFpEF) ?I50.32 - Chronic diastolic (congestive) heart failure (ICD-10) Hypertension ?I10 - Essential (primary) hypertension (ICD-10) Myofascial pain ?M79.18 - Myalgia, other site (ICD-10) Greater trochanteric bursitis ?M70.60 - Trochanteric bursitis, unspecified hip (ICD-10) Osteoarthritis of right hip ?M16.11 - Unilateral primary osteoarthritis, right hip (ICD-10) Lumbar spondylosis ?M47.816 - Spondylosis without myelopathy or radiculopathy, lumbar region (IC D-10) Lumbar postlaminectomy syndrome ?M96.1 - Postlaminectomy syndrome, not elsewhere classified (ICD-10) Lumbar stenosis with neurogenic claudication ?M48.062 - Spinal stenosis, lumbar region with neurogenic claudication (ICD- 10) Depression ?F32.A - Depression, unspecified (ICD-10) Chronic low back pain ?M54.50 - Low back pain, unspecified (ICD-10) ?G89.29 - Other chronic pain (ICD-10) Hypoxia ?R09.02 - Hypoxemia (ICD-10) Heart murmur ?R01.1 - Cardiac murmur, unspecified (ICD-10) Chronic obstructive pulmonary disease ?J44.9 - Chronic obstructive pulmonary disease, unspecified (ICD-10) Asthma ?J45.909 - Unspecified asthma, uncomplicated (ICD-10) Surgical History Status post hip surgery ?Z98.890 - Other specified postprocedural states (ICD-10) H/O foot surgery ?Z98.890 - Other specified postprocedural states (ICD-10) H/O tubal ligation ?Z98.51 - Tubal ligation status (ICD-10) History of lumbar fusion ?Z98.1 - Arthrodesis status (ICD-10) Social History Smoking status: Never smoker Highest level of school completed/degree received: Associate degree: occupational, technical, vocational program Do you think of yourself as: straight/heterosexual Gender Identity: female Meds Home Medications and Allergies Home Medications ?Medication ?Instructions ?Recorded ?Confirmed ?Type fluticasone fur. 200 mcg-umeclid 1 inh inhalation Q24H COPD 04/10/23 02/19/24 History 62.5 mcg-vilant 25 mcg inhalat.powder (Trelegy Ellipta) magnesium oxide 400 mg (241.3 mg 400 mg PO DAILY 04/10/23 02/19/24 History magnesium) tablet omeprazole 20 mg capsule,delayed 20 mg PO BID 04/10/23 02/19/24 History release montelukast 10 mg tablet 10 mg PO DAILY 09/14/23 02/19/24 History pramipexole 0.25 mg tablet 0.25 mg PO QPM 09/14/23 02/19/24 History (Mirapex) paroxetine HCl 30 mg tablet 30 mg PO QDAY 11/25/23 02/19/24 History pregabalin 75 mg capsule 75 mg PO BID 11/25/23 02/19/24 History solifenacin 10 mg tablet 10 mg PO QDAY 11/25/23 02/19/24 History trazodone 100 mg tablet 100 mg PO .qhs 11/25/23 02/19/24 History guaifenesin 600 mg tablet, 600 mg PO BID 10 days #20 tabs 12/02/23 02/19/24 Rx extended release 12 hr (Mucus Relief ER) tramadol 50 mg tablet 50 mg PO BID PRN pain 01/30/24 02/19/24 History baclofen 10 mg tablet 10 mg PO Q8H 02/03/24 02/19/24 History oxycodone 5 mg tablet 5 mg PO Q6H PRN pain 02/03/24 02/19/24 History fluconazole 100 mg tablet 100 mg PO QD #10 tabs 02/08/24 02/19/24 Rx levofloxacin 500 mg tablet 500 mg PO DAILY 10 days #10 tabs 02/08/24 02/19/24 Rx magnesium oxide 400 mg (241.3 mg 400 mg PO DAILY #30 tabs 02/08/24 02/19/24 Rx magnesium) tablet prednisone 10 mg tablet 40 mg (4 x 10 mg) PO DAILY #32 tabs 02/08/24 02/19/24 Rx Allergies Allergy/AdvReac Type Severity Reaction Status Date / Time No Known Drug Allergies Allergy Verified 02/19/24 08:57 Exam Constitutional Documenting provider has reviewed patient's vital signs: yes Common normals: no apparent distress, oriented x3, healthy appearing, alert and well nourished General appearance: cooperative HENCT Common normals: normocephalic, hearing grossly normal bilaterally and moist oral mucous membranes Head and scalp: normocephalic Eye Common normals: PERRL Pupil: PERRL Neck & C-Spine Common normals: full ROM General: normal visual inspection Chest Common normals: inspection of chest normal Respiratory Common normals: normal respiratory effort, no retractions and no use of accessory muscles Effort & inspection: actively coughing Other: productive cough without SOB Back & Pelvis Thoracic spine/upper back: ROM limited, pain with ROM and thoracic spinal tenderness Lumbar spine/lower back: ROM limited, pain with ROM and straight leg raise negative bilaterally Other: sensation intact BLE weakness in BLE 4/5 multilevel thoracic facet tenderness, no trigger points noted positive facet loading, most significant over bilateral T7,8 T8,9 Extremity Common normals: normal to inspection and full ROM Right lower extremity: hip joint Other: pain with internal and external rotation. Weakness to BLE 4/5 strength Neuro Common normals: oriented x3, CN's II-XII intact bilaterally, moves all extremities, no focal motor deficits, no sensory deficits noted and deep tendon reflexes 2+ bilaterally Sensorium/orientation: alert Gait (neuro): assistive device used other (wheelchair) Motor exam: strength 5/5 throughout and no movement abnormalities noted Psych Common normals: mental status grossly normal, thought process normal, cooperative, affect normal, speech normal and activity/motor behavior normal Speech: normal speech Thought process: normal thought process Results Additional Findings Additional findings: If on a controlled substance or opioids, I have checked an [place]AR[place] report on this patient and there are no aberrancies noted in the prescribing history.??If on a controlled substance or opioid a drug screen was completed and reviewed within the last year, and if there has not been a drug screen completed we ordered one today to monitor higher risk, state monitored pain medication use. As part of providing excellent, safe, comprehensive care, the following was completed at our patient's visit: 1. A medication reconciliation and review to ensure accurate knowledge of current/active medications, including asking our patients to inform us about any mzdo-bek-orohjmq medications or herbal remedies/nutritional supplements/alternative remedies. 2. A review to specifically ensure our patients have had annual screening for screening for depression, screening for tobacco use, and screening for unhealthy alcohol use. For concerning screenings had a discussion with the patient, provided patient education, and recommended follow-up with primary care provider when appropriate. If patient noted with a risk of falling, they received education on strength, gait, and balance training to prevent future risk of falling. Assessment and Plan Assessment and Plan (1) Thoracic spondylosis: Assessment and Plan: The patient has had over 3 months of moderate to severe back pain with functional impairment and inadequate response to conservative care including NSAIDS (unless there are contraindication such as concurrent blood thinners), multiple oral or topical pain medications, and home exercise program/physical therapy.? Patient has completed >6 weeks of guided home exercise program and/or formal physical therapy program without relief of their symptoms.? I have reviewed the imaging of the thoracic spine and no red flags were identified.? We discussed the risks and benefits of the procedure with the patient, and we are NOT planning on using sedation as outlined in the guidelines from Medicare unless there is a documented reason that sedation would be strongly recommended.?? The procedure will be completed with fluoroscopic guidance.? (2) Lumbar stenosis with neurogenic claudication: Assessment and Plan: improved (3) Lumbar radiculopathy: Assessment and Plan: resolved (4) Lumbar spondylosis: Assessment and Plan: stable (5) Failed back syndrome: (6) History of lumbar fusion: (7) Myofascial pain: Assessment and Plan: improved with baclofen 10mg TID PRN (8) Osteoarthritis of right hip: Qualifiers: Osteoarthritis type: primary Qualified Code(s): M16.11 - Unilateral primary osteoarthritis, right hip (9) Encounter for long-term opiate analgesic use: (10) On home oxygen therapy: Plan bilateral T7-8 T8-9 facet medial branch block x2 under fluoroscopy working towards RFA continue f/u with PCP and pulmonology continue baclofen 10mg TID PRN for myofascial pain continue current medications, tolerating well without side effects. f/u after each injection
--- OUTSIDE RECORDS SUMMARY | 2024-03-27 08:35 | XMS_ITS | CCD ---
Author Organization [facility] ion [facility] Care Team Providers Care Product Safety Coordinator Name Role Phone Steph Collier Attending Provider Unavailable Chantel Rainey Primary Care Provider Unavailabl e JoanaHerberth epps Attending Provider Unavailable Unavailable Primary Care Provider Unavailabl e UNKNOWN, PHYSICIAN Referring Unavailable JOO LINN Attending Unavailable JOO LINN Admitting Unavailable UNKNOWN, PHYSICIAN Primary Care Unavailable Rena Hurd Unavailable Joana, Herberth Unavailable Gato Domingo Unavailable [phone] Steph Collier Attending Provider [phone] MD Gato Domingo Attending Provider MD Nicky Ohara Primary Care Provider Gilma Trent Unavailable OJANA, HERBERTH Attending Unavailable JOANA, HERBERTH Admitting Unavailable FAWWAD, SAUNDERS H Primary Care Unavailable HERBERHT BERNARD Consulting Unavailable SAM ., BO Admitting Unavailable FAWWAD, SAUNDERS H Primary Care Unavailable FAWWAD, SAUNDERS H Consulting Unavailable JOHNY Rendon, BO Attending Unavailable BRITTANY GALDAMEZ Consulting Unavailable ISABEL ., DR SANTIAGO Admitting Unavailabl e KARBLANCA ., DR SANTIAGO Attending Unavailabl e KARASINorman ., DR SANTIAGO Consulting Unavailabl e FABIRD, SAUNDERS H Primary Care Unavailable LEBEAU, DR BRITTANY Elizondo Consulting Unavailable DARWIN, DR [...] Unavailable FAWWAD, SAUNDERS H Consulting Unavailable [place], [facility] Attending Unavailable JOO LINN Attending Unavailable Fawwad, Saunders Primary Care Unavailable Gato Domingo Attending Unavailabl Gato Galindo Admitting Unavailabl e FAWWAD, SAUNDERS Attending Unavailable FAWWAD, SAUNDERS Attending Unavailable FAWWAD, SAUNDERS Attending Unavailable FAWWAD, SAUNDERS Attending Unavailable ROSHNI LEDESMA Attending Unavailable FAWWAD, SAUNDERS Attending Unavailable FAWWAD, SAUNDERS Attending Unavailable Gilorenzaitis , Andrius Johnson Attending Unavailable Gilorenzaitis , Andrius Johnson Attending Unavailable Gilorenzaitis , Andrius Johnson Attending Unavailable Gieditis , Jayshree Johnson Attending Unavailable Alicia DRAPER, Jayshree Johnson Attending Unavailable Steph Collier Attending Provider Unavailable Unavailable Unavailable Allergies Allergy Classification Reported Allergen(s) Allergy Type Date of Onset Reaction(s) Facility (4 sources) fentaNYL; Translations: [fentanyl] Drug Allergy 07-07-20 17 Hallucinating [facility] (2 sources) linezolid; Translations: [LINEZOLID] Drug Allergy 03-17-20 20 [facility] (20 sources) Vancomycin; Translations: [VANCOMYCIN] Drug Allergy 03-17-20 20 Unknown, Unknown Reaction [facility] (12 sources) DENIES METAL SENSITITIVITY Propensity to adverse reactions 03-14-20 24 Unknown, Unknown Reaction [facility] Medications Current Medications Medication Drug Class(es) Dates Sig (Normalized) Sig (Original) 30 ACTUAT fluticasone furoate 0.2 MG/ACTUAT / umeclidinium 0.0625 MG/ACTUAT / vilanterol 0.025 MG/ACTUAT Dry Powder Inhaler [Trelegy] (2 sources) take 1 puff(s) by inhalation once daily Trelegy Ellipta 200-62.5-25 MCG/INH 1 puff Inhalation Once a day Active [id number] 200 actuat albuterol 0.09 mg/actuat metered dose inhaler (11 sources) beta2-Adrenergic Agonist Start: 03-14-2024 take 1 puff(s) by inhalation every four hours Albuterol Sulfate Active 2 PUFF INHALATION Every 4 hours March 14, 2024 12:00am Start: 07-07-2017 take 1 puff(s) by in halation every four to six hours Albuterol Sulfate Active 1 PUFF Inhalation EVERY 4-6 HOURS July 07, 2017 10:17am Start: 07-07-2017 End: 03-14-2024 take 1 puff(s) by inhalation every four to six hours Albuterol Sulfate Discontinued 1 PUFF INHALATION EVERY 4-6 HOURS July 07, 2017 12:00am March 14, 2024 10:40am Start: 07-07-2017 take 1 puff(s) by in [...] plain water Orally once a week Active Aspirin (4 sources) Platelet Aggregation Inhibitor, Nonsteroidal Anti-inflammatory Drug take 1 tablet by mouth once daily Aspirin 325 mg 325 mg one tab orally daily Active baclofen 10 mg oral tablet (2 sources) gamma-Aminobutyric Acid-ergic Agonist Start: take 10 mg by mouth three times daily Baclofen Active 10 MG PO Three times daily March 14, 2024 12:00am take 1 tablet by mouth every eig ht hours Baclofen 5 MG 1 tablet as needed Orally Three times a day Active cholecalciferol 0.025 mg oral capsule (1 source) Vitamin D Start: 03-14-2024 take 25 ug by mouth once daily Cholecalciferol (Vitamin D3) Active 25 MCG PO Daily March 14, 2024 12:00am ferrous sulfate 325 mg oral tablet (10 sources) Start: 03-14-2024 Ferrous Sulfat e Active 325 MG PO Every 48 hours March 14, 2024 12:00am take 1 tablet by mouth every oth er day Iron 325 (65 Fe) MG 1 tablet Orally every other day Active fluticasone propionate 0.05 mg/actuat metered dose nasal spray (1 source) Corticosteroid take 2 spray(s) nasal route once daily Flonase Allergy Relief 50 MCG/ACT 2 spray in each nostril Nasally Once a day Active Fluticasone-Umeclidin- Vilanter (3 sources) Start: 03-14-2024 Fluticasone-Umeclidi n-Vilanter (Trelegy Ellipta) 200-62.5-25 mcg blister with device Active 1 INH INHALATION Daily March 14, 2024 12:00am Start: 12-08-2022 End: 03-14-2024 Vdakusivoha-Gcnubbvus-Qgydea er (Trelegy Ellipta) 200-62.5-25 mcg blister with device Discontinued 1 INH INHALATION As Directed December 08, 2022 1:00am March 14, 2024 10:40am Start: 12-08-2022 Fluticasone-Um eclidin-Vilanter (Trelegy Ellipta) 200-62.5-25 mcg blister with device [...] 1 capsule Orally twice a day Active Iron (2 sources) take 1 tablet by mouth every other day Iron 325 (65 Fe) MG 1 tablet Orally every other day Active levocetirizine dihydrochloride 5 mg oral tablet (1 source) Histamine-1 Receptor Antagonist take 1 tablet by mouth every twenty-four hours Levocetirizine Dihydrochloride 5 MG 1 tablet in the evening Orally Once a day Active losartan potassium 50 mg oral tablet (3 sources) Angiotensin 2 Receptor Edwin take 1 tablet by mouth in the morning, then take 1 tablet by mouth twice daily in the evening Losartan Potassium 50 MG 1 tablet AM / 1 tablet PM Orally bid for 90 days Active magnesium oxide 400 mg oral tablet (8 sources) Start: take 400 mg by mouth once daily Magnesium Oxide Active 400 MG PO Daily March 14, 2024 12:00am Start: 08-09-2022 take 1 tablet by bessie th every twenty-four hours Magnesium Oxide 400 MG 1 tablet with food Orally Once a day for 90 days Aug, Active montelukast 10 mg oral tablet (12 sources) Leukotriene Receptor Antagonist Start: 03-14-2024 take 1 tablet by mouth once daily Montelukast (Singulair) 10 mg tablet Active 10 MG PO Daily March 14, 2024 12:00am take 1 tablet by bessie th every twenty-four hours Singulair 10 MG 1 tablet Orally Once a day Active Multi For Her 50+ - (11 sources) Multi For Her 50 + - as directed Orally ONCE A DAY Active Multi For Her 50 + - as directed Orally Active omeprazole 20 mg delayed release oral capsule (16 sources) Proton Pump Inhibitor Start: 03-14-2024 take 20 mg by mouth twice daily Omeprazole Active 20 MG PO Twice daily March 14, 2024 12:00am Start: 07-07-2017 End: 03-14-2024 take 20 mg by mouth once daily Omeprazole Discontinued 20 MG PO Daily July 07, 2017 12:00am March 14, 2024 10:41am take 1 capsule by [facility] every twelve hours Omeprazole 20 MG 1 CAPSULE Orally TWICE A DAY Active take 1 capsule by [facility] once daily Omeprazole 20 MG 1 capsule 30 minutes before morning meal Orally Once a day Active Comment on above: Take 20 mg by mouth. 24 hr oxybutynin chloride 5 mg extended release oral tablet (8 sources) Cholinergic Muscarinic Antagonist take 1 tablet by mouth every twenty-four hours Oxybutynin Chloride ER 5 MG 1 tablet Orally Once a day Active PARoxetine hydrochloride 30 mg oral tablet (16 sources) Serotonin Reuptake Inhibitor Start: take 30 mg by mouth once daily Paroxetine Hcl Active 30 MG PO Daily March 14, 2024 12:00am Start: 07-07-2017 End: 03-14-2024 take 1 tablet by mouth once daily Paroxetine Hcl (Paxil) 20 mg Tablet Discontinued 20 MG PO Daily July 07, 2017 12:00am March 14, 2024 10:39am PARoxetine (PAXI L) 40 mg tablet Take 40 mg by mouth. 0 Active Comment on above: Take 40 mg by mouth. potassium chloride 20 meq extended release oral tablet (12 sources) Start: 08-05-2022 take 1 tablet by mouth every twenty-four hours Potassium Chloride ER 20 MEQ 1 tablet with food Orally Once a day for 90 day(s) Jul, Active Start: 08-05-2022 take 1 tablet by [facility] every twelve hours Potassium Chloride ER 20 MEQ 1 tablet with food Orally Twice a day for 90 days Jul, Active pramipexole dihydrochloride 0.25 mg oral tablet (4 sources) Nonergot Dopamine Agonist Start: 03-14-2024 take 0.25 mg by mouth once daily at bedtime Pramipexole Active 0.25 MG PO Daily at bedtime March 14, 2024 12:00am take 1 tablet by bessie th every twenty-four hours Pramipexole Dihydrochloride 0.25 MG 1 tablet Orally Once a day Active pregabalin 75 mg oral capsule (1 source) Start: 03-14-2024 take 75 mg by mouth twice daily Pregabalin Active 75 MG PO Twice daily March 14, 2024 12:00am solifenacin succinate 10 mg oral tablet (4 sources) Cholinergic Muscarinic Antagonist Start: 03-14-2024 take 10 mg by mouth once daily Solifenacin Active 10 MG PO Daily March 14, 2024 12:00am take 1 tablet by bessie th every twenty-four hours VESIcare 10 MG 1 tablet Orally Once a day Active traZODone hydrochloride 100 mg oral tablet (16 sources) Serotonin Reuptake Inhibitor Start: 03-14-2024 take 100 mg by mouth once daily at bedtime Trazodone Active 100 MG PO Daily at bedtime March 14, 2024 12:00am Start: 07-07-2017 End: 03-14-2024 take 50 mg by mouth at bedtime Trazodone Discontinued 50 MG PO Bedtime July 07, 2017 12:00am March 14, 2024 10:38am Comment on above: Take 50 mg by mouth. Trelegy Ellipta 200-62.5-25 MCG/INH (5 sources) take 1 puff(s) by inhalation once daily Trelegy Ellipta 200-62.5-25 MCG/INH 1 puff Inhalation Once a day Active Vitamin D 25 MCG (1000 UT) (7 sources) take 1 tablet by bessie th once daily Vitamin D 25 MCG (1000 [...] in structed every 6 hours as needed. amLODIPine 2.5 mg oral tablet (12 sources) Dihydropyridine Calcium Channel Edwin Start: 07-07-2017 End: 03-14-2024 take 1 tablet by mouth twice daily Amlodipine (Norvasc) 2.5 mg Tablet Discontinued 2.5 MG PO Twice daily July 07, 2017 12:00am March 14, 2024 10:40am take 1 tablet by bessie th every twenty-four hours amLODIPine Besylate 5 MG 1 tablet Orally Once a day Active amLODIPine (NORV ASC) 10 mg tablet Take 10 mg by mouth. 0 Active Comment on above: Take 10 mg by mouth. clonazePAM 0.5 mg oral tablet (4 sources) Benzodiazepine Start: End: take 0.5 mg by mouth once daily Clonazepam Discontinued 0.5 MG PO Daily July 07, 2017 12:00am March 14, 2024 10:40am Comment on above: Take 0.5 mg by mouth . cyclobenzaprine hydrochloride 10 mg oral tablet (4 sources) Muscle Relaxant Start: End: take 10 mg by mouth once daily Cyclobenzaprine Discontinued 10 MG PO Daily July 07, 2017 12:00am March 14, 2024 10:40am Comment on above: Take 10 mg by mouth. famotidine 40 mg oral tablet (4 sources) Histamine-2 Receptor Antagonist Start: End: take 1 tablet by mouth at bedtime Famotidine (Pepcid) 40 mg Tablet Discontinued 40 MG PO Bedtime July 07, 2017 12:00am December 08, 2022 8:02am famotidine (PEPC ID) 20 mg tablet Take 20 mg by mouth. 0 Active Comment on above: Take 20 mg by mouth. 12 hr guaiFENesin 600 mg extended release oral tablet (7 sources) take 1 tablet by mouth every twelve hours guaiFENesin ER 600 MG 1 tablet as needed Orally every 12 hrs Not-Taking hydroCHLOROthiazide 25 mg oral tablet (10 sources) Thiazide Diuretic Start: 2022 End: 2023 take 25 mg by mouth once daily Hydrochlorothiazide Discontinued 25 MG PO Daily December 08, 2022 1:00am March 14, 2024 10:40am hydroCHLOROthiazide 25 mg / spironolactone 25 mg oral tablet (4 sources) Thiazide Diuretic, Aldosterone Antagonist Start: 2018 take 1 tablet by mouth once spironolactone-hctz 25/25 (ALDACTAZIDE) 25-25 mg per tablet Take 25 mg by mouth. 0 01/03/2019 Active Start: 09-15-2017 End: 12-08-2022 take 1 tablet by mouth once daily Spironolacton-Hydrochlorothiaz Discontin ued 1 TAB PO Daily September 15, 2017 1:00am December 08, 2022 8:04am Comment on above: Take 25 mg by mouth. 200 actuat ipratropium bromide 0.017 mg/actuat metered dose inhaler (7 sources) Anticholinergic Start: 07-07-20 End: 03-14-20 take 1 puff(s) by inhalation twice daily Ipratropium [place] (Atrovent Hfa) 17 mcg/actuation Hfa Aerosol Inhaler Discontinued 2 PUFF INHALATION Twice daily July 07, 2017 12:00am March 14, 2024 10:40am take 2 puff(s) by in halation four times daily Atrovent HFA 17 MCG/ACT 2 puffs Inhalation Four times a day Active lisinopril 40 mg oral tablet (3 sources) Angiotensin Converting Enzyme Inhibitor Start: 07-07-2017 End: 12-08-2022 take 0.5 tablet by mouth twice daily Lisinopril Discontinued 0.5 TAB PO Twice daily July 07, 2017 12:00am December 08, 2022 8:04am loratadine 10 mg oral tablet (3 sources) Start: 07-07-2017 End: 03-14-2024 take 10 mg by mouth once daily Loratadine Discontinued 10 MG PO Daily July 07, 2017 12:00am March 14, 2024 10:41am Magnesium (2 sources) Start: 12-08-2022 End: 03-14-2024 take 200 mg by mouth once daily Magnesium Discontinued 200 MG PO Daily December 08, 2022 1:00am March 14, 2024 10:34am Start: 12-08-2022 take 200 mg by mouth once autumn y Magnesium Active 200 MG PO Daily December 08, 2022 12:00am methylPREDNISolone (18 sources) Corticosteroid Start: 07-18-2018 Depo-Medrol 40 mg Jul, 1 mL Start: 01-31-2018 Depo-Medrol 40 mg Jan, 1 mL potassium 99 mg extended release oral tablet (2 sources) Start: 12-08-2022 End: 03-14-2024 take 99 mg by mouth twice daily Potassium Discontinued 99 MG PO Twice daily December 08, 2022 1:00am March 14, 2024 10:41am Problems Active Problems Problem Classification Problem Date [...] anus] Onset: 3 Episodic Chronic kidney disease (16 sources) Chronic kidney disease stage 3; Translations: [Chronic kidney disease, stage 3 (moderate)] 03-14-2024 Chronic Chronic obstructive pulmonary disease and bronchiectasis (1 source) Chronic obstructive lung disease; Translations: [Chronic obstructive pulmonary disease, unspecified] 03-14-2024 Chronic Complication of device; implant or graft (11 sources) Prosthetic joint loosening; Translations: [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, initial encounter] Episodic Deficiency and other anemia (11 sources) Anemia of renal disease; Translations: [Anemia in chronic kidney disease] Chronic Essential hypertension (11 sources) Hypertensive disorder; Translations: [Essential (primary) hypertension] Chronic Fluid and electrolyte disorders (8 sources) Hypokalemia; Translations: [Hypokalemia] Onset: 2 Resolved: 2 Episodic Gastrointestinal hemorrhage (11 sources) Hemorrhage of rectum and anus; Translations: [Hemorrhage of rectum and anus] Episodic Hypertension with complications and secondary hypertension (20 sources) Chronic kidney disease due to hypertension; Translations: [Hypertensive chronic kidney disease with stage 1 through stage 4 chronic kidney disease, or unspecified chronic kidney disease] Onset: 2 Resolved: 2 Chronic Nutritional deficiencies (1 source) Vitamin D deficiency; Translations: [Vitamin D deficiency, unspecified] 03-14-2024 Chronic Osteoarthritis (20 sources) Arthritis of left [...] Chronic Other nutritional; endocrine; and metabolic disorders (8 sources) Hypomagnesemia; Translations: [Hypomagnesemia] 03-14-2024 Chronic Other nutritional; endocrine; and metabolic disorders (7 sources) Hypomagnesemia; Translations: [Disorders of magnesium metabolism] Onset: 3 Chronic Other nutritional; endocrine; and metabolic disorders (5 sources) Hyperuricemia without signs of inflammatory arthritis and tophaceous disease; Translations: [HU W/O SIGNS IA AND TOPHACEOUS DZ] Onset: 2 Resolved: 2 Episodic Pneumonia (except that caused by tuberculosis or sexually transmitted disease) (1 source) Pneumonia, unspecified organism; Translations: [Pneumonia, organism unspecified] 03-14-2024 Episodic Spondylosis; intervertebral disc disorders; other back [...] 3 Viral infection (1 source) COVID-19; Translations: [Other specified viral infection] 03-14-2024 Episodic Viral infection (1 source) COVID-19; Translations: [COVID-19] [...] Test Name Value Interpretation Reference Range Facility Erythrocyte distribution wid th Auto (RBC) [Ratio]on 03-06-2024 Erythrocyte distribution width (RBC) [Ratio] 13.2 % 11.0-15.0 [facility] Estimated glomerular filtrat ion rate (GFR) non- Americanon 03-06-2024 GFR/1.73 sq M.predicted among non-blacks MDRD (S/P/Bld) [Vol rate/Area] 57 mL/min/{1.73_m2} >=60 [facility] Hematocrit Auto (Bld) [Volum e fraction]on 03-06-2024 Hematocrit (Bld) [Volume fraction] 38.7 % 36.0-48.0 [facility] Hemoglobin [Mass/volume] in Bloodon 03-06-2024 Hemoglobin (Bld) [Mass/Vol] 12.2 g/dL 12.0-16.0 [facility] Laboratory - Chemistry and C hemistry - challengeon 03-06-2024 Albumin [Mass/Vol] 3.0 g/dL 3.4-5.0 [facility] Calcium [Mass/Vol] 8.8 mg/dL 8.5-10.1 [facility] Chloride [Moles/Vol] 104 mmol/L 98-107 [facility] CO2 [Moles/Vol] 32.2 mmol/L 21.0-32.[address] [facility] Creatinine [Mass/Vol] 0.97 mg/dL 0.55-1.02 [facility] GFR/1.73 sq M.predicted MDRD (S/P/Bld) [Vol rate/Area] mL/min/{1.73_m2} >=60 [facility] Glucose [Mass/Vol] 67 mg/dL 74-106 [facility] Magnesium [Mass/Vol] 1.9 mg/dL 1.8-2.4 [facility] Potassium [Moles/Vol] 3.4 mmol/L 3.5-5.1 [facility] Sodium [Moles/Vol] 143 mmol/L 136-145 [facility] Urate [Mass/Vol] 5.0 mg/dL 2.6-6.[address] [facility] Urea nitrogen [Mass/Vol] 16.0 mg/dL 7.0-18.0 [facility] Urea nitrogen/Creatinine [Mass ratio] 16.5 mg/mg [facility] Leukocytes [#/volume] correc melanie for nucleated erythrocytes in Blood by Automated counon 03-06-2024 WBC corrected for nucl RBC Auto (Bld) [#/Vol] 8.1 10 3/uL 4.0-11.0 [facility] MCH Auto (RBC) [Entitic mass ]on 03-06-2024 MCH (RBC) [Entitic mass] 30.4 pg 26.7-34.0 [facility] MCHC Auto (RBC) [Mass/Vol]on 03-06-2024 MCHC (RBC) [Mass/Vol] 31.5 g/dL 29.9-35.2 [facility] MCV Auto (RBC) [Entitic vol] on 03-06-2024 MCV (RBC) [Entitic vol] 96.5 fL 81.0-99.0 [facility] No Panel Informationon 03-06 Urine Random Creatinine 63.27 mg/dL 20.00-300.00 [facility] Urine Random Total Protein <6.0 mg/dL <=11.9 [facility] 25-Hydroxy Vitamin D Total 37.1 ng/mL [facility] Comment on above: <20 ng/mL Vit D defi cient20-<30 ng/mL Vit D [id number] ng/mL Vit D sufficient>100 ng/mL Potential Toxicity Parathyroid Hormone (Intact) 36 pg/mL 15-65 [facility] Comment on above: Performed at: - L [employer] [id number] Director: Raphael Marrero PhD, Phone: [phone] Phosphorus Level 3.2 mg/dL 2.6-4.[address] [facility] Platelet mean volume Auto (B ld) [Entitic vol]on 03-06-2024 Platelet mean volume (Bld) [Entitic vol] 9.1 fL 9.5-13.5 [facility] Platelets Auto (Bld) [#/Vol] on 03-06-2024 Platelets (Bld) [#/Vol] 247 10 3/uL 150-450 [facility] RBC Auto (Bld) [#/Vol]on RBC (Bld) [#/Vol] 4.01 10 6/uL 4.20-5.40 [facility] Serum or plasma anion gap de terminationon 03-06-2024 Anion gap [Moles/Vol] 10.2 mmol/L [facility] Follow-Upon 05-08-2023 Follow-Up [id number] Nell Champion 1955 F Date Provider Department Center 05/08/2023 Siddharth-HETAL SCALES [facility] Family History Problem Relation Age of Onset Heart failure Mother Heart disease Father Family Status - Relation Status Age at Mother Father Level of Service:[address]47 [place] OFFICE/OUTPATIENT ESTABLISHED LOW MDM 20-29 MIN [facility] 05-03-2023 36 PATIENT CALLED TO CANCEL SURGERY FOR July D/T HER LUNG DISEASE. WILL CALL TO RESCHEDULE WHEN FULLY HEALED FROM LUNGS AND CLEARED//[facility] [id number] 36 FYI CALLED PATIENT T O F/U ON MEDICAL AND PULMONARY CLEARANCES FOR R ELZA ON 05/19 AND PRE-OP RIYA'T 04/27 WITH US AND PATIENT IS CURRENTLY INPATIENT SINCE LAST WEEK D/T COVID AND PULMONARY ISSUES, SHE WILL CALL US ON 04/25 WITH PROGRESS, PLEASE ADVISE IF WE SHOULD CANCEL SURGERY FOR NOW..THANKS//[facility] SYMPTOMATIC COVID-19 ANTIGEN on 04-04-2023 EUA Statement SEE BELOW Normal [facility] Comment on above: [...] sooner. Performed By: #### C VDAGS #### [facility] [address] [place] [address] Dr. Shayne Roldan SARS-CoV-2 (COVID-19) RNA KAYLEE+probe Ql (Unsp spec) Positive Abnormal NEGATIVE [facility] Comment on above: Performed By: #### C VDAGS #### [facility] [address] [address] [address] hSayne Roldan XR LSPINE 2_3 VIEWSon [...] STEPH GRANADOS Date: 2023-03-24 12:52 Normal [facility] PTH INTACTon 02-27-2023 PTH, Intact 87 pg/mL Critically high 15-65 [facility] Comment on above: Performed By: #### P THINT #### [facility] [address] [address] [address] Shayne Roldan HEMOGRAM AND PLATELon 2022 Hematocrit (Bld) [Volume fraction] 44.4 % Normal 36.0-48.0 [facility] Comment on above: Performed By: #### H H #### [facility] [address] [place] [address] Dr. Shayne Roldan Hemoglobin (Bld) [Mass/Vol] 14.5 g/dL Normal 12.0-16.0 [facility] Comment on above: Performed By: #### H H #### [facility] [address] [place] [address] Dr. Shayne Roldan MCH (RBC) [Entitic mass] 30.3 pg Normal 26.7-34.0 [facility] Comment on above: Performed By: #### H H #### [facility] [address] [place] [address] Dr. Shayne Roldan MCHC (RBC) [Mass/Vol] 32.7 g/dL Normal 29.9-35.2 [facility] Comment on above: Performed By: #### H H #### [facility] [address] [place] [address] Dr. Shayne Roldan MCV (RBC) [Entitic vol] 92.9 fL Normal 81.0-99.0 [facility] Comment on above: Performed By: #### H H #### [facility] [address] [address] [address] Shayne Roldan PLT 367 103/ul Normal 150-450 [facility] Comment on above: Performed By: #### H H #### [facility] [address] [place] [address] Dr. Shayne Roldan RBC 4.78 106/ul Normal 4.20-5.40 [facility] Comment on above: Performed By: #### H H #### [facility] [address] [place] [address] Dr. Shayne Roldan WBC 9.9 103/ul Normal 4.0-11.0 [facility] Comment on above: Performed By: #### H H #### [facility] [address] [place] [address] Dr. Shayne Roldan MAGNESIUMon 02-25-2023 Magnesium [Mass/Vol] 1.6 mg/dL Critically low 1.8-2.4 [facility] Comment on above: Performed By: #### M G, RENAL, URIC #### [facility] [address] [place] [address] Dr. Shayne Roldan RENAL FUNCTION PANELon 02-25 Albumin [Mass/Vol] 3.4 g/dL Normal 3.4-5.0 [facility] Comment on above: Performed By: #### M G, RENAL, URIC #### [facility] [address] [place] [address] Dr. Shayne Roldan Calcium [Mass/Vol] 8.7 mg/dL Normal 8.5-10.1 [facility] Comment on above: Performed By: #### M G, RENAL, URIC #### [facility] [address] [place] [address] Dr. Shayne Roldan Chloride [Moles/Vol] 104 mmol/L Normal 98-107 [facility] Comment on above: Performed By: #### M G, RENAL, URIC #### [facility] [address] [address] [address] Shayne Roldan CO2 [Moles/Vol] 25.9 mmol/L Normal 21.0-32.0 [facility] Comment on above: Performed By: #### M G, RENAL, URIC #### [facility] [address] [place] [address] Dr. Shayne Roldan Creatinine [Mass/Vol] 1.19 mg/dL Critically high 0.55-1.02 [facility] Comment on above: Performed By: #### M G, RENAL, URIC #### [facility] [address] [place] [address] Dr. Shayne Roldan EGFR-AF BHUTANESE 55 mL/min/1.73m2 Critically low >=60 [facility] Comment on above: Performed By: #### M G, RENAL, URIC #### [facility] [address] [address] [address] Shayne Roldan EGFR-NON AF BHUTANESE 45 mL/min/1.73m2 Critically low >=60 [facility] Comment on above: Performed By: #### M G, RENAL, URIC #### [facility] [address] [address] [address] Shayne Roldan Glucose [Mass/Vol] 193 mg/dL Critically high 74-106 [facility] Comment on above: Performed By: #### M G, RENAL, URIC #### [facility] [address] [place] [address] Dr. Shayne Roldan Phosphate [Mass/Vol] 3.2 mg/dL Normal 2.6-4.7 [facility] Comment on above: Performed By: #### M G, RENAL, URIC #### [facility] [address] [address] [address] Shayne Roldan Potassium [Moles/Vol] 3.9 mmol/L Normal 3.5-5.1 [facility] Comment on above: Performed By: #### M G, RENAL, URIC #### [facility] [address] [address] [address] Shayne Roldan Sodium [Moles/Vol] 140 mmol/L Normal 136-145 [facility] Comment on above: Performed By: #### M G, RENAL, URIC #### [facility] [address] [address] [address] Shayne Roldan Urea nitrogen [Mass/Vol] 17.0 mg/dL Normal 7.0-18.0 [facility] Comment on above: Performed By: #### M G, RENAL, URIC #### [facility] [address] [address] [address] Shayne Roldan UA RANDOM W/MICROSCOPICon BACTERIA TRACE Abnormal NONE SEEN [facility] Comment on above: Performed By: #### M G, RENAL, URIC #### [facility] [address] [address] [address] Shayne Roldan Bilirubin Ql (U) Negative Normal NEGATIVE [facility] Comment on above: Performed By: #### M G, RENAL, URIC #### [facility] [address] [address] [address] Shayne Roldan CAST NONE SEEN Normal NONE SEEN [facility] Comment on above: Performed By: #### M G, RENAL, URIC #### [facility] [address] [address] [address] Shayne Roldan Clarity (U) CLEAR Normal CLEAR [facility] Comment on above: Performed By: #### M G, RENAL, URIC #### [facility] [address] [place] [address] Dr. Shayne Roldan Color (U) LT. YELLOW Normal YELLOW [facility] Comment on above: Performed By: #### M G, RENAL, URIC #### [facility] [address] [address] [address] Shayne Roldan Crystals LM Nom (Urine sed) NONE SEEN Normal NONE SEEN [facility] Comment on above: Performed By: #### M G, RENAL, URIC #### [facility] [address] [place] [address] Dr. Shayne Roldan Epithelial cells LM Ql (Urine sed) RARE Normal NONE SEEN /RARE [facility] Comment on above: Performed By: #### M G, RENAL, URIC #### [facility] [address] [place] [address] Dr. Shayne Roldan Glucose Ql (U) Negative Normal NEGATIVE [facility] Comment on above: Performed By: #### M G, RENAL, URIC #### [facility] [address] [address] [address] Shayne Roldan Hemoglobin Ql (U) Negative Normal NEGATIVE [facility] Comment on above: Performed By: #### M G, RENAL, URIC #### [facility] [address] [place] [address] Dr. Shayne Roldan Ketones Ql (U) Negative Normal NEGATIVE [facility] Comment on above: Performed By: #### M G, RENAL, URIC #### [facility] [address] [place] [address] Dr. Shayne Roldan LEUKOCYTES Negative Normal NEGATIVE [facility] Comment on above: Performed By: #### M G, RENAL, URIC #### [facility] [address] [address] [address] Shayne Roldan MUCOUS NONE SEEN Normal NONE SEEN [facility] Comment on above: Performed By: #### M G, RENAL, URIC #### [facility] [address] [place] [address] Dr. Shayne Roldan Nitrite Ql (U) Negative Normal NEGATIVE [facility] Comment on above: Performed By: #### M G, RENAL, URIC #### [facility] [address] [place] [address] Dr. Shayne Roldan pH (U) 5.0 [pH] Normal 5-9 [facility] Comment on above: Performed By: #### M G, RENAL, URIC #### [facility] [address] [place] [address] Dr. Shayne Roldan RBC 0-2 Normal 0-2 [facility] Comment on above: Performed By: #### M G, RENAL, URIC #### [facility] [address] [place] [address] Dr. Shayne Roldan SPEC GRAVITY 1.025 Normal 1.005-<=1.025 [facility] Comment on above: Performed By: #### M G, RENAL, URIC #### [facility] [address] [place] [address] Dr. Shayne Roldan UA PROTEIN Negative Normal NEGATIVE/ TRACE [facility] Comment on above: Performed By: #### M G, RENAL, URIC #### [facility] [address] [place] [address] Dr. Shayne Roldan Urobilinogen Qn (U) 0.2 {Rogelio'U}/dL Normal 0.2 - 1. 0 [facility] Comment on above: Performed By: #### M G, RENAL, URIC #### [facility] [address] [place] [address] Dr. Shayne Roldan WBC 0-2 Abnormal NONE SEEN [facility] Comment on above: Performed By: #### M G, RENAL, URIC #### [facility] [address] [address] [address] Shayne Roldan URIC ACID SERUMon 02-25-2023 Urate [Mass/Vol] 6.1 mg/dL Critically high 2.6-6.0 [facility] Comment on above: Performed By: #### M G, RENAL, URIC #### [facility] [address] [place] [address] Dr. Shayne Roldan URINE T PROTEIN CREAT RATIOo n 02-25-2023 Protein (U) [Mass/Vol] 13.0 mg/dL Critically high <=12.0 [facility] Comment on above: Performed By: #### M G, RENAL, URIC #### [facility] [address] [place] [address] Dr. Shayne Roldan UR PROT CREAT RAT 0.16 Normal [facility] Comment on above: Performed By: #### M G, RENAL, URIC #### [facility] [address] [place] [address] Dr. Shayne Roldan URINE CREAT 83.60 mg/dL Normal 20.00-300.00 [facility] Comment on above: Performed By: #### M G, RENAL, URIC #### [facility] [address] [place] [address] Dr. Shayne Roldan VITAMIN D 25 OHon 02-25-2023 VIT D 25-OH 41.6 ng/mL Normal [facility] Comment on above: Performed By: #### M G, RENAL, URIC #### [facility] [address] [place] [address] Dr. Shayne Roldan VIT D RANGES SEE BELOW Normal [facility] Comment on above: Result Comment: <20 ng/mL Vit D deficient 20 - <30 ng/mL Vit D insufficient 30 - 100 ng/mL Vit D sufficient >100 ng/mL Potential Toxicity Performed By: #### M G, RENAL, URIC #### [facility] [address] [place] [address] Dr. Shayne Roldan XR CHEST 2 Von [...] by: BRITTANY GALDAMEZ Date: 2023-02-22 16:[address] [facility] MAMM SCREEN 3D PRATEEK CADon 12-15-2022 MAMM SCREEN 3D PRATEEK CAD Patient: DIANA CHAMPION Exam Date: 12/15/2022 : 1955 Gender:F Ordering : DR JACK HALL . Admission #: [id number] Family : Order #: [id number] CLICK HERE TO VIEW EXAM RADIOLOGY REPORT PROCEDURE: MAMMOGRAM SCREENING 3D BILATERAL CAD COMPARISON: MAMM SCREEN 3D PRATEEK CAD, 11/26/2021. INDICATIONS: Calculator Name NCI Breast Cancer Risk Assessment Tool 5 Year Breast Cancer Risk 1.20% Lifetime Breast Cancer Risk 4.40% Personal Breast Cancer No Personal Ovarian Cancer No Treatments Excision, radiation, chemotherapy Family Cancers None LOCATION: [facility] BREAST COMPOSITION: Almost entirely fatty. FINDINGS: [...] Walters MD on 12/15/2022 at 10:51 Normal [facility] XR DEXA BONE DENSITYon 12-15 XR [...] by: STEPH GRANADOS Date: 2022-12-15 09:50 Normal [facility] 12-08-2022 L - -------- Specimen: [id number] Received: 12/08/22 Status: CELIA Kay Num: [id number] Spec Type: Surgical Subm Dr: Gato Domingo MD Tissues: A Colon Biopsy (DESC COL POLYP) Procedures: FLORENCIA/Shagufta Douglass/Dionna L4 -------- Age/ Patient Sex Location Account Attending Physician -------- Diana Champion 67/F [id number] Gato Domingo MD -------- SPEC NUM: [id number] RECD: 12/08/22 STATUS: CELIA KAY NUM: [id number] KENDRA: 12/08/[address] [facility] [address]: Gato Domingo MD ENTERED: 12/08/[address] [facility] [address]: KHRIS TYPE: Surgical DEPT: S ENTERED BY: [id number] RECV BY: [id number] ORDERED: HE/2, Gross/Micro L4 ORDERED: HE/2, Gross/Micro [...] support the above pathologic diagnosis. CPT Codes 93088 -------- -------- Specimen: [id number] Received: 12/08/22 Status: CELAI Kay Num: [id number] Spec Type: Surgical Subm Dr: Gato Domingo MD Tissues: A Colon Biopsy (DESC COL POLYP) Procedures: HE/2, Gross/Micro L4 -------- Patient: Diana Champion [id number] (Continued) -------- Signed (signature on file) Eunice Rosa MD 12/09/22 10[facility] PAP ACOG PANEL 2: 30 to 65on 11-16-2022 . . [facility] Comment on above: Performed By: #### [id number] #### [facility] [address] [place] [address] Dr. Shayne Roldan Age Gdln ACOG Testing Comment [facility] Comment on above: Result Comment: <21 or >65 or no age provided Performed By: #### [id number] #### [facility] [address] [place] [address] Dr. Shayne Roldan DIAGNOSIS: Comment [facility] Comment on above: Result Comment: NEGA TIVE FOR INTRAEPITHELIAL LESION OR MALIGNANCY. Performed By: #### [id number] #### [facility] [address] [place] [address] Dr. Shayne Roldan Methodology: Comment [facility] Comment on above: Result Comment: This liquid based ThinPrep(R) pap test was screened with the use of an image guided system. Performed By: #### [id number] #### [facility] [address] [place] [address] Dr. Shayne Roldan Note: Comment Normal [facility] Comment on above: Result Comment: The Pap smear is a screening test designed to aid in the detection of premalignant and malignant conditions of the uterine cervix. It is not a diagnostic procedure and should not be used as the sole means of detecting cervical cancer. Both false-positive and false-negative reports do occur. . Performed By: #### [id number] #### [facility] [address] [place] [address] Dr. Shayne Roldan Performed by: Comment Normal [facility] Comment on above: Result Comment: Onur Aguilar, Lvn (ASCP) Performed By: #### [id number] #### [facility] [address] [place] [address] Dr. Shayne Roldan Specimen adequacy: Comment Normal [facility] Comment on above: Result Comment: Sati sfactory for evaluation. Endocervical and/or squamous metaplastic cells (endocervical component) are present. Performed By: #### [id number] #### [facility] [address] [place] [address] Dr. Shayne Roldan RENAL FUNCTION PANELon 08-19 Albumin [Mass/Vol] 3.4 g/dL Normal 3.4-5.0 [facility] Comment on above: Performed By: #### M G, RENAL, URIC #### [facility] [address] [place] [address] Dr. Shayne Roldan Calcium [Mass/Vol] 8.4 mg/dL Critically low 8.5-10.1 [facility] Comment on above: Performed By: #### M G, RENAL, URIC #### [facility] [address] [place] [address] Dr. Shayne Roldan Chloride [Moles/Vol] 103 mmol/L Normal 98-107 [facility] Comment on above: Performed By: #### M G, RENAL, URIC #### [facility] [address] [address] [address] Shayne Roldan CO2 [Moles/Vol] 27.8 mmol/L Normal 21.0-32.0 [facility] Comment on above: Performed By: #### M G, RENAL, URIC #### [facility] [address] [address] [address] Shayne Roldan Creatinine [Mass/Vol] 1.02 mg/dL Normal 0.55-1.02 [facility] Comment on above: Performed By: #### M G, RENAL, URIC #### [facility] [address] [address] [address] Shayne Roldan EGFR-AF BHUTANESE >60 Normal >=60 [facility] Comment on above: Performed By: #### M G, RENAL, URIC #### [facility] [address] [address] [address] Shayne Roldan EGFR-NON AF BHUTANESE 54 mL/min/1.73m2 Critically low >=60 [facility] Comment on above: Performed By: #### M G, RENAL, URIC #### [facility] [address] [address] [address] Shayne Roldan Glucose [Mass/Vol] 110 mg/dL Critically high 74-106 [facility] Comment on above: Performed By: #### M G, RENAL, URIC #### [facility] [address] [address] [address] Shayne Roldan Phosphate [Mass/Vol] 2.3 mg/dL Critically low 2.6-4.7 [facility] Comment on above: Performed By: #### M G, RENAL, URIC #### [facility] [address] [address] [address] Shayne Roldan Potassium [Moles/Vol] 3.2 mmol/L Critically low 3.5-5.1 [facility] Comment on above: Performed By: #### M G, RENAL, URIC #### [facility] [address] [address] [address] Shayne Roldan Sodium [Moles/Vol] 138 mmol/L Normal 136-145 [facility] Comment on above: Performed By: #### M G, RENAL, URIC #### [facility] [address] [place] [address] Dr. Shayne Roldan Urea nitrogen [Mass/Vol] 14.0 mg/dL Normal 7.0-18.0 [facility] Comment on above: Performed By: #### M G, RENAL, URIC #### [facility] [address] [place] [address] Dr. Shayne Roldan PTH INTACTon 08-06-2022 PTH, Intact 40 pg/mL Normal 15-65 [facility] Comment on above: Performed By: #### M G, RENAL, URIC #### [facility] [address] [place] [address] Dr. Shayne Roldan HEMOGRAM AND PLATELon 2021 Hematocrit (Bld) [Volume fraction] 39.8 % Normal 36.0-48.0 [facility] Comment on above: Performed By: #### M G, RENAL, URIC #### [facility] [address] [place] [address] Dr. Shayne Roldan Hemoglobin (Bld) [Mass/Vol] 13.4 g/dL Normal 12.0-16.0 [facility] Comment on above: Performed By: #### M G, RENAL, URIC #### [facility] [address] [place] [address] Dr. Shayne Roldan MCH (RBC) [Entitic mass] 30.5 pg Normal 26.7-34.0 [facility] Comment on above: Performed By: #### M G, RENAL, URIC #### [facility] [address] [place] [address] Dr. Shayne Roldan MCHC (RBC) [Mass/Vol] 33.7 g/dL Normal 29.9-35.2 [facility] Comment on above: Performed By: #### M G, RENAL, URIC #### [facility] [address] [place] [address] Dr. Shayne Roldan MCV (RBC) [Entitic vol] 90.5 fL Normal 81.0-99.0 [facility] Comment on above: Performed By: #### M G, RENAL, URIC #### [facility] [address] [address] [address] Shayne Roldan PLT 299 103/ul Normal 150-450 [facility] Comment on above: Performed By: #### M G, RENAL, URIC #### [facility] [address] [address] [address] Shayne Roldan RBC 4.40 106/ul Normal 4.20-5.40 [facility] Comment on above: Performed By: #### M G, RENAL, URIC #### [facility] [address] [place] [address] Dr. Shayne Roldan WBC 8.8 103/ul Normal 4.0-11.0 [facility] Comment on above: Performed By: #### M G, RENAL, URIC #### [facility] [address] [place] [address] Dr. Shayne Roldan MAGNESIUMon 08-05-2022 Magnesium [Mass/Vol] 1.5 mg/dL Critically low 1.8-2.4 [facility] Comment on above: Performed By: #### M G, RENAL, URIC #### [facility] [address] [place] [address] Dr. Shayne Roldan RENAL FUNCTION PANELon 08-05 Albumin [Mass/Vol] 3.5 g/dL Normal 3.4-5.0 [facility] Comment on above: Performed By: #### M G, RENAL, URIC #### [facility] [address] [place] [address] Dr. Shayne Roldan Calcium [Mass/Vol] 8.4 mg/dL Critically low 8.5-10.1 [facility] Comment on above: Performed By: #### M G, RENAL, URIC #### [facility] [address] [place] [address] Dr. Shayne Roldan Chloride [Moles/Vol] 101 mmol/L Normal 98-107 [facility] Comment on above: Performed By: #### M G, RENAL, URIC #### [facility] [address] [address] [address] Shayne Roldan CO2 [Moles/Vol] 29.5 mmol/L Normal 21.0-32.0 [facility] Comment on above: Performed By: #### M G, RENAL, URIC #### [facility] [address] [address] [address] Shayne Roldan Creatinine [Mass/Vol] 1.04 mg/dL Critically high 0.55-1.02 [facility] Comment on above: Performed By: #### M G, RENAL, URIC #### [facility] [address] [address] [address] Shayne Roldan EGFR-AF BHUTANESE >60 Normal >=60 [facility] Comment on above: Performed By: #### M G, RENAL, URIC #### [facility] [address] [address] [address] Shayne Roldan EGFR-NON AF BHUTANESE 53 mL/min/1.73m2 Critically low >=60 [facility] Comment on above: Performed By: #### M G, RENAL, URIC #### [facility] [address] [address] [address] Shayne Roldan Glucose [Mass/Vol] 92 mg/dL Normal 74-106 [facility] Comment on above: Performed By: #### M G, RENAL, URIC #### [facility] [address] [address] [address] Shayne Roldan Phosphate [Mass/Vol] 2.4 mg/dL Critically low 2.6-4.7 [facility] Comment on above: Performed By: #### M G, RENAL, URIC #### [facility] [address] [address] [address] Shayne Roldan Potassium [Moles/Vol] 2.8 mmol/L Critically low 3.5-5.1 [facility] Comment on above: Performed By: #### M G, RENAL, URIC #### [facility] [address] [address] [address] Shayne Roldan Sodium [Moles/Vol] 137 mmol/L Normal 136-145 [facility] Comment on above: Performed By: #### M G, RENAL, URIC #### [facility] [address] [address] [address] Shayne Roldan Urea nitrogen [Mass/Vol] 10.0 mg/dL Normal 7.0-18.0 [facility] Comment on above: Performed By: #### M G, RENAL, URIC #### [facility] [address] [address] [address] Shayne Roldan UA RANDOM W/MICROSCOPICon BACTERIA SMALL Abnormal NONE SEEN [facility] Comment on above: Performed By: #### U AMIC #### [facility] [address] [address] [address] Shayne Roldan Bilirubin Ql (U) Negative Normal NEGATIVE [facility] Comment on above: Performed By: #### U AMIC #### [facility] [address] [place] [address] Dr. Shayne Roldan CAST NONE SEEN Normal NONE SEEN [facility] Comment on above: Performed By: #### U AMIC #### [facility] [address] [address] [address] Shayne Roldan Clarity (U) CLEAR Normal CLEAR [facility] Comment on above: Performed By: #### U AMIC #### [facility] [address] [place] [address] Dr. Shayne Roldan Color (U) LT. YELLOW Normal YELLOW [facility] Comment on above: Performed By: #### U AMIC #### [facility] [address] [address] [address] Shayne Roldan Crystals LM Nom (Urine sed) NONE SEEN Normal NONE SEEN [facility] Comment on above: Performed By: #### U AMIC #### [facility] [address] [address] [address] Shayne Roldan Epithelial cells LM Ql (Urine sed) FEW Abnormal NONE SEEN /RARE [facility] Comment on above: Performed By: #### U AMIC #### [facility] [address] [address] [address] Shayne Roldan Glucose Ql (U) Negative Normal NEGATIVE [facility] Comment on above: Performed By: #### U AMIC #### [facility] [address] [address] [address] Shayne Roldan Hemoglobin Ql (U) Negative Normal NEGATIVE [facility] Comment on above: Performed By: #### U AMIC #### [facility] [address] [address] [address] Shayne Roldan Ketones Ql (U) Negative Normal NEGATIVE [facility] Comment on above: Performed By: #### U AMIC #### [facility] [address] [address] [address] Shayne Roldan LEUKOCYTES TRACE Abnormal NEGATIVE [facility] Comment on above: Performed By: #### U AMIC #### [facility] [address] [address] [address] Shayne Roldan MUCOUS NONE SEEN Normal NONE SEEN [facility] Comment on above: Performed By: #### U AMIC #### [facility] [address] [address] [address] Shayne Roldan Nitrite Ql (U) Negative Normal NEGATIVE [facility] Comment on above: Performed By: #### U AMIC #### [facility] [address] [address] [address] Shayne Roldan pH (U) 6.0 [pH] Normal 5-9 [facility] Comment on above: Performed By: #### U AMIC #### [facility] [address] [address] [address] Shayne Roldan RBC NONE SEEN Abnormal 0-2 [facility] Comment on above: Performed By: #### U AMIC #### [facility] [address] [address] [address] Sahyne Roldan SPEC GRAVITY <=1.005 Abnormal 1.005-<=1.025 [facility] Comment on above: Performed By: #### U AMIC #### [facility] [address] [address] [address] Shayne Roldan UA PROTEIN Negative Normal NEGATIVE/ TRACE [facility] Comment on above: Performed By: #### U AMIC #### [facility] [address] [address] [address] Shayne Roldan Urobilinogen Qn (U) 0.2 {Rogelio'U}/dL Normal 0.2 - 1. 0 [facility] Comment on above: Performed By: #### U AMIC #### [facility] [address] [address] [address] Shayne Roldan WBC 5-10 Abnormal NONE SEEN [facility] Comment on above: Performed By: #### U AMIC #### [facility] [address] [place] [address] Dr. Shayne Roldan URIC ACID SERUMon 08-05-2022 Urate [Mass/Vol] 6.5 mg/dL Critically high 2.6-6.0 [facility] Comment on above: Performed By: #### M G, RENAL, URIC #### [facility] [address] [place] [address] Dr. Shayne Roldan URINE T PROTEIN CREAT RATIOo n 08-05-2022 Protein (U) [Mass/Vol] 4.8 mg/dL Normal <=12.0 [facility] Comment on above: Performed By: #### U RTPCR #### [facility] [address] [place] [address] Dr. Shayne Roldan UR PROT CREAT RAT 0.09 Normal [facility] Comment on above: Performed By: #### U RTPCR #### [facility] [address] [place] [address] Dr. Shayne Roldan URINE CREAT 52.65 mg/dL Normal 20.00-300.00 [facility] Comment on above: Performed By: #### U RTPCR #### [facility] [address] [place] [address] Dr. Shayne Roldan VITAMIN D 25 OHon 08-05-2022 VIT D 25-OH 38.9 ng/mL Normal [facility] Comment on above: Performed By: #### M G, RENAL, URIC #### [facility] [address] [place] [address] Dr. Shayne Roldan VIT D RANGES SEE BELOW Normal [facility] Comment on above: Result Comment: <20 ng/mL Vit D deficient 20 - <30 ng/mL Vit D insufficient 30 - 100 ng/mL Vit D sufficient >100 ng/mL Potential Toxicity Performed By: #### M G, RENAL, URIC #### [facility] [address] [address] [address] Shayne Roldan IMMUNOGLOBULINS IGA/IGM/IGG/ IGE QUANTITAon 07-12-2022 Immunoglobulin A, Qn, Serum 295 mg/dL Normal 87-352 [facility] Comment on above: Result Comment: Perf ormed at: CB Performed By: #### M G, RENAL, URIC #### [facility] [address] [address] [address] Shayne Roldan Immunoglobulin E, Total 32 IU/mL Normal 6-495 [facility] Comment on above: Result Comment: Perf ormed at: BN Performed By: #### M G, RENAL, URIC #### [facility] [address] [address] [address] Shayne Roldan Immunoglobulin G, Qn, Serum 729 mg/dL Normal 586-1602 [facility] Comment on above: Result Comment: Perf ormed at: CB Performed By: #### M G, RENAL, URIC #### [facility] [address] [address] [address] Shayne Roldan Immunoglobulin M, Qn, Serum 75 mg/dL Normal 26-217 [facility] Comment on above: Result Comment: Perf ormed at: CB Performed By: #### M G, RENAL, URIC #### [facility] [address] [address] [address] Shayne Roldan Abstracton 07-08-2022 Abstract [id number] Nell Champion 1955 F Date Provider Department Center 07/08/2022 JOHANNA MEDINA [facility] Family History Problem Relation Age of Onset Heart failure Mother Heart disease Father Family Status - Relation Status Age at Mother Father Normal [facility] CBC AUTO DIFFon 07-05-2022 BASO # 0.1 103/ul Normal 0.0-0.1 [facility] Comment on above: Performed By: #### M G, RENAL, URIC #### [facility] [address] [address] [address] Shayne Roldan Basophils/100 WBC (Bld) 0.7 % Normal 0.2-2.0 [facility] Comment on above: Performed By: #### M G, RENAL, URIC #### [facility] [address] [place] [address] Dr. Shayne Roldan EO # 0.4 103/ul Normal 0.0-0.7 [facility] Comment on above: Performed By: #### M G, RENAL, URIC #### [facility] [address] [place] [address] Dr. Shayne Roldan Eosinophils/100 WBC (Bld) 4.4 % Normal 0.9-7.0 [facility] Comment on above: Performed By: #### M G, RENAL, URIC #### [facility] [address] [place] [address] Dr. Shayne Roldan Erythrocyte distribution width (RBC) [Ratio] 12.6 % Normal 11.0-15.0 [facility] Comment on above: Performed By: #### M G, RENAL, URIC #### [facility] [address] [place] [address] Dr. Shayne Roldan Hematocrit (Bld) [Volume fraction] 40.2 % Normal 36.0-48.0 [facility] Comment on above: Performed By: #### M G, RENAL, URIC #### [facility] [address] [place] [address] Dr. Shayne Roldan Hemoglobin (Bld) [Mass/Vol] 13.6 g/dL Normal 12.0-16.0 [facility] Comment on above: Performed By: #### M G, RENAL, URIC #### [facility] [address] [place] [address] Dr. Shayne Roldan IG # 0.07 10e3/ul Critically high 0.00-0.03 [facility] Comment on above: Performed By: #### M G, RENAL, URIC #### [facility] [address] [place] [address] Dr. Shayne Roldan IG % 0.8 % Critically high 0.0-0.5 [facility] Comment on above: Performed By: #### M G, RENAL, URIC #### [facility] [address] [place] [address] Dr. Shayne Roldan LYMPH # 2.3 103/ul Normal 1.2-3.8 [facility] Comment on above: Performed By: #### M G, RENAL, URIC #### [facility] [address] [place] [address] Dr. Shayne Roldan Lymphocytes/100 WBC (Bld) 24.7 % Normal 20.5-60.0 [facility] Comment on above: Performed By: #### M G, RENAL, URIC #### [facility] [address] [place] [address] Dr. Shayne Roldan MANUAL DIFF REQ NO Normal [facility] Comment on above: Performed By: #### M G, RENAL, URIC #### [facility] [address] [place] [address] Dr. Shayne Roldan MCH (RBC) [Entitic mass] 30.7 pg Normal 26.7-34.0 [facility] Comment on above: Performed By: #### M G, RENAL, URIC #### [facility] [address] [place] [address] Dr. Shayne Roldan MCHC (RBC) [Mass/Vol] 33.8 g/dL Normal 29.9-35.2 [facility] Comment on above: Performed By: #### M G, RENAL, URIC #### [facility] [address] [place] [address] Dr. Shayne Roldan MCV (RBC) [Entitic vol] 90.7 fL Normal 81.0-99.0 [facility] Comment on above: Performed By: #### M G, RENAL, URIC #### [facility] [address] [place] [address] Dr. Shayne Roldan MONO # 0.7 103/ul Normal 0.3-0.8 [facility] Comment on above: Performed By: #### M G, RENAL, URIC #### [facility] [address] [address] [address] Shayne Roldan Monocytes/100 WBC (Bld) 7.7 % Normal 1.7-12.0 [facility] Comment on above: Performed By: #### M G, RENAL, URIC #### [facility] [address] [place] [address] Dr. Shayne Roldan NEUT # 5.7 103/ul Normal 1.4-6.5 [facility] Comment on above: Performed By: #### M G, RENAL, URIC #### [facility] [address] [place] [address] Dr. Shayne Roldan Neutrophils/100 WBC (Bld) 61.7 % Normal 43.0-75.0 [facility] Comment on above: Performed By: #### M G, RENAL, URIC #### [facility] [address] [place] [address] Dr. Shayne Roldan Platelet mean volume (Bld) [Entitic vol] 8.8 fL Critically low 9.5-13.5 [facility] Comment on above: Performed By: #### M G, RENAL, URIC #### [facility] [address] [place] [address] Dr. Shayne Roldan PLT 279 103/ul Normal 150-450 [facility] Comment on above: Performed By: #### M G, RENAL, URIC #### [facility] [address] [place] [address] Dr. Shayne Roldan RBC 4.43 106/ul Normal 4.20-5.40 [facility] Comment on above: Performed By: #### M G, RENAL, URIC #### [facility] [address] [place] [address] Dr. Shayne Roldan WBC 9.1 103/ul Normal 4.0-11.0 [facility] Comment on above: Performed By: #### M G, RENAL, URIC #### [facility] [address] [place] [address] Dr. Shayne Roldan Covid-19 PCR ([facility])on SARS-CoV-2 (COVID-19) RNA KAYLEE+probe Ql (Unsp spec) Not detected Normal NOT DETECTED [facility] Comment on above: Result Comment: This test is not yet approved or cleared by the [place] FDA. When there are no FDA-approved or cleared tests available, and other criteria are met, FDA can make tests available under an emergency access mechanism called an Emergency Use Authorization (EUA). The EUA for this test is supported by the Assistant Superintendent For Curriculum of Health and Human Service's (HHS's) declaration [...] By: #### M G, RENAL, URIC #### [facility] [address] [address] [address] Shayne Roldan XR CHEST 2 Von [...] NARDA LONDONO Date: 2022-06-08 19:58 Normal [facility] Covid-19 PCR ([facility])on SARS-CoV-2 (COVID-19) RNA KAYLEE+probe Ql (Unsp spec) Not detected Normal NOT DETECTED [facility] Comment on above: Result Comment: This test is not yet approved or cleared by the [place] FDA. When there are no FDA-approved or cleared tests available, and other criteria are met, FDA can make tests available under an emergency access mechanism called an Emergency Use Authorization (EUA). The EUA for this test is supported by the [place] of Health and Human Service's (HHS's) declaration [...] consistent with SARS-CoV-2. Performed By: #### C VDTB #### [facility] [address] [place] [address] Dr. Shayne Roldan DEXA AXIALon 03-01-2022 DEXA AXIAL [facility] Department of Radiology [address] [place] [address] Patient Name: DIANA CHAMPION : 1955 Sex: F Age: Race: White Pt. Location: Patient Status: D Ordered Date: 02/24/2022 1:25:00 PM Completed Date: 03/01/2022 09:46 AM Requesting Provider: CINDA ANTONIO Attending Provider: Report Copy To: Signs & Symptoms: Z78.0 Asymptomatic menopausal state I10 History: [place] Comments: Exam: DEXA AXIAL DEXA AXIAL 03/01/2022 [...] characteristics. Electronically signed: Luzma Fernandez. Transcribed by: [email or web address], User Resident: Electronically Signed by: LUZMA FERNANDEZ @ 03/02/2022 01:07 PM Normal [facility] SCOLIOSIS [address] [facility] 02-24-2022 SCOLIOSIS 2 [facility] Department of Radiology [address] [place] [address] Patient Name: DIANA CHAMPION : 1955 Sex: F Age: Race: White Pt. Location: 84 Patient Status: D Ordered Date: 02/24/2022 1:25:00 PM Completed Date: 02/24/2022 01:44 PM Requesting Provider: CINDA ANTONIO Attending Provider: Report Copy To: Signs & Symptoms: M43.10 Spondylolisthesis, site unspecified I10 History: Comments: Views (X-RAY, SCOLIOSIS): PA, Lateral evaluate Exam: SCOLIOSIS 2 S Scoliosis. Worsening pain. Frontal and lateral thoracolumbar spine IMPRESSION: 1. Diffuse disc disease and facet arthritis. Right convex mid lumbar curvature measuring 16 degrees. Interbody fusion hardware lower lumbar spine. Electronically signed: Hugo Lynn. Transcribed by: [email or web address], User Resident: Electronically Signed by: HUGO LYNN @ 02/26/2022 11:07 AM Normal [facility] Comment on above: Order Comment: Views (X-RAY, SCOLIOSIS): PA, Lateral evaluate CT LUMBAR SPINE W CONTRASTon 01-24-2022 CT LUMBAR SPINE W CONTRAST [facility] Department of Radiology [address] [place] [id number] Patient Name: DIANA CHAMPION : 1955 Sex: F Age: Race: White Pt. Location: 84 Patient Status: D Ordered Date: 01/09/2022 9:00:00 AM Completed Date: 01/24/2022 03:26 PM Requesting Provider: JOO LINN Attending Provider: JOO LINN Report Copy To: UNKNOWN, PHYSICIAN Signs & Symptoms: M54.16 Radiculopathy, lumbar region I10 History: [place] Comments: , CT MYELOGRAM>PAPER WORK IN CHART [...] L1-2. Electronically signed: Gaurang Lawrence. Transcribed by: [email or web address], User Resident: Electronically Signed by: GAURANG LAWRENCE @ 01/26/2022 08:58 AM Normal [facility] Comment on above: Order Comment: , CT MYELOGRAM>PAPER WORK IN CHART LUMBAR MYELOGRAMon 2 LUMBAR MYELOGRAM [facility] Department of Radiology [address] [place] [id number] Patient Name: DIANA CHAMPION : 1955 Sex: F Age: Race: White Pt. Location: 84 Patient Status: O Ordered Date: 01/09/2022 9:00:00 AM Completed Date: 01/24/2022 02:37 PM Requesting Provider: JOO LINN Attending Provider: JOO LINN Report Copy To: UNKNOWN, PHYSICIAN Signs & Symptoms: M54.16 Radiculopathy, lumbar region I10 History: Jessica Is patient on thinners? 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 Consent was obtained. Timeout: [place] protocol timeout verification performed. PROCEDURE: Estimated blood [...] report. Electronically signed: Greg Marlow. Transcribed by: [email or web address], User Resident: DEBBIE JI Electronically Signed by: GREG MARLOW @ 01/24/2022 04:07 PM I personally read this/these film(s) with this resident Normal [facility] Comment on above: Order Comment: , CT MYELOGRAM> PAPER WORK SCANNED IN CHART , CT MYELOGRAM> PAPER WORK SCANNED IN CHART , , , Ordering Provider - JOO LINN MD , HIP LEFT 1 OR 2 VWS WITH PEL VISon 01-06-2022 HIP LEFT 1 OR 2 VWS WITH PELVIS [facility] Department of Radiology [address] [place] [id number] Patient Name: DIANA CHAMPION : 1955 Sex: F Age: Race: White Pt. Location: 84 Patient Status: D Ordered Date: 12/21/2021 10:45:00 AM Completed Date: 01/06/2022 01:24 PM Requesting Provider: JOO LINN Attending Provider: JOO LINN Report Copy To: Signs & Symptoms: Z96.642 Presence of left artificial hip joint I10 History: [place] Comments: Evaluate Exam: HIP LEFT 1 OR 2 VWS WITH PELVIS HIP LEFT 1 OR 2 VWS WITH PELVIS HISTORY: Hip replacement, follow-up. COMPARISON: None. IMPRESSION: 1. Redemonstrated left hip prosthesis without visible complication. 2. Advanced right hip arthritis without significant change with advanced joint space narrowing. Unchanged lumbosacral fusion hardware. Electronically signed: Joe Matthew. Transcribed by: [email or web address], User Resident: Electronically Signed by: JOE MATTHEW @ 01/09/2022 04:45 PM Normal [facility] Comment on above: Order Comment: Evalu ate Vital Signs Date Time Vital Sign Value Performing Clinician Facility 03-14-2024 10:30-0400 Body height 165.1 cm Steph Collier Work Phone: [facility] 03-14-2024 10:30-0400 Body mass index (BMI) [Ratio] 39 kg/m2 Steph Collier Work Phone: [facility] 03-14-2024 10:30-0400 Body temperature 97.4 [degF] Steph Collier Work Phone: [facility] 03-14-2024 10:30-0400 Body weight 106.36 kg Steph Collier Work Phone: [facility] 03-14-2024 10:30-0400 Diastolic blood pressure 80 mm[Hg] Steph Collier Work Phone: [facility] 03-14-2024 10:30-0400 Heart rate 77 /min Steph Collier Work Phone: [facility] 03-14-2024 10:30-0400 Inhaled oxygen flow rate 3 L/min Steph Collier Work Phone: [facility] 03-14-2024 10:30-0400 Respiratory rate 20 /min Steph Collier Work Phone: [facility] 03-14-2024 10:30-0400 SaO2% (BldA) [Mass fraction] 92 % Steph Collier Work Phone: [facility] 03-14-2024 10:30-0400 Systolic blood pressure 120 mm[Hg] Steph Collier Work Phone: [facility] 08-17-2023 09:20-0400 Body height 165.1 cm Herberth Joana Other [facility] Other 08-17-2023 09:20-0400 Body mass index (BMI) [Ratio] 38.1 kg/m2 Herberth Joana Other [facility] Other 08-17-2023 09:20-0400 Body temperature 98.8 [degF] Herberth Joana Other [facility] Other 08-17-2023 09:20-0400 Body weight 103.87 kg Herberth Joana Other [facility] Other 08-17-2023 09:20-0400 Diastolic blood pressure 85 mm[Hg] Herberth Joana Other [facility] Other 08-17-2023 09:20-0400 Respiratory rate 18 /min Herberth Joana Other [facility] Other 08-17-2023 09:20-0400 SaO2% (BldA) [Mass fraction] 94 % Herberth Joana Other [facility] Other 08-17-2023 09:20-0400 Systolic blood pressure 151 mm[Hg] Herberth Joana Other [facility] Other 03-02-2023 10:00-0400 Body height 165.1 cm Herberth Joana Other [facility] Other 03-02-2023 10:00-0400 Body mass index (BMI) [Ratio] 37.29 kg/m2 Herberth Joana Other [facility] Other 03-02-2023 10:00-0400 Body temperature 98.9 [degF] Herberth Joana Other [facility] Other 03-02-2023 10:00-0400 Body weight 101.65 kg Herberth Joana Other [facility] Other 03-02-2023 10:00-0400 Diastolic blood pressure 76 mm[Hg] Herberth Joana Other [facility] Other 03-02-2023 10:00-0400 Respiratory rate 20 /min Herberth Joana Other [facility] Other 03-02-2023 10:00-0400 SaO2% (BldA) [Mass fraction] 96 % Herberth Joana Other [facility] Other 03-02-2023 10:00-0400 Systolic blood pressure 136 mm[Hg] Herberth Joana Other [facility] Other 12-08-2022 09:30-0500 Diastolic blood pressure 59 mm[Hg] MD Shaikh Ohara Work Phone: [facility] 12-08-2022 09:30-0500 Heart rate 55 /min MD Shaikh Ohara Work Phone: [facility] 12-08-2022 09:30-0500 Respiratory rate 16 /min MD Shaikh Ohara Work Phone: [facility] 12-08-2022 09:30-0500 SaO2% (BldA) [Mass fraction] 96 % MD Shaikh Ohara Work Phone: [facility] 12-08-2022 09:30-0500 Systolic blood pressure 112 mm[Hg] MD Shaikh Ohara Work Phone: [facility] 12-08-2022 06:54-0500 Body height 162.56 cm MD Shaikh Ohara Work Phone: [facility] 12-08-2022 06:54-0500 Body temperature 98.2 [degF] MD Shaikh Ohara Work Phone: [facility] 12-08-2022 06:54-0500 Body weight 104.32 kg MD Shaikh Ohara Work Phone: [facility] 08-09-2022 11:00-0400 Body height 165.1 cm Herberth Joana Other [facility] [employer] Other 08-09-2022 11:00-0400 Body mass index (BMI) [Ratio] 37.87 kg/m2 Herberth Joana Other [facility] Other 08-09-2022 11:00-0400 Body temperature 97.2 [degF] Herberth Joana Other [facility] Other 08-09-2022 11:00-0400 Body weight 103.24 kg Herberth Joana Other [facility] Other 08-09-2022 11:00-0400 Diastolic blood pressure 88 mm[Hg] Herberth Joana Other [facility] Other 08-09-2022 11:00-0400 Respiratory rate 20 /min Herberth Joana Other [facility] Other 08-09-2022 11:00-0400 SaO2% (BldA) [Mass fraction] 95 % Herberth Joana Other [facility] Other 08-09-2022 11:00-0400 Systolic blood pressure 133 mm[Hg] Herberth Joana Other [facility] Other 11-17-2021 10:40-0500 Body height 165.1 cm Herberth Joana Other [facility] Other 11-17-2021 10:40-0500 Body mass index (BMI) [Ratio] 37.97 kg/m2 Herberth Joana Other [facility] Other 11-17-2021 10:40-0500 Body temperature 97.8 [degF] Herberth Joana Other [facility] Other 11-17-2021 10:40-0500 Body weight 103.51 kg Herberth Joana Other [facility] Other 11-17-2021 10:40-0500 Diastolic blood pressure 70 mm[Hg] Herberth Joana Other [facility] Other 11-17-2021 10:40-0500 Respiratory rate 18 /min Herberth Joana Other [facility] Other 11-17-2021 10:40-0500 SaO2% (BldA) [Mass fraction] 94 % Herberth Joana Other [facility] Other 11-17-2021 10:40-0500 Systolic blood pressure 130 mm[Hg] Herberth Joana Other [facility] Other 08-30-2021 13:15-0400 Body height 165.1 cm Rena Ginty Other [facility] Other 08-30-2021 13:15-0400 Body mass index (BMI) [Ratio] 36.61 kg/m2 Erna Ginty Other [facility] Other 08-30-2021 13:15-0400 Body temperature 98.7 [degF] Rena Ginty Other [facility] Other 08-30-2021 13:15-0400 Body weight 99.79 kg Rena Ginty Other [facility] Other 08-30-2021 13:15-0400 SaO2% (BldA) [Mass fraction] 90 % Rena Ginty Other [facility] Other Encounters Encounter Date Encounter Type Care Provider Facility Start: 03-14-2024 End: 03-14-2024 ambulatory Steph Collier Work Phone: [facility] Work Phone: Start: 03-14-2024 End: 03-14-2024 Patient encounter procedure Steph Marinellijohn Work Phone: [facility] Work Phone: Start: 03-06-2024 Non-patient / Non-visit [facility] Galindo [facility] Work Phone: Start: 02-26-2024 End: 02-26-2024 ambulatory SAUNDERS FAWWAD Not Available Start: 02-19-2024 End: 02-20-2024 ambulatory Jayshree Vargas MD Facility:[facility] Start: 02-15-2024 End: 02-15-2024 ambulatory ROSHNI AICHHOLZ Not Available Start: 01-25-2024 End: 01-25-2024 ambulatory [...] 09-07-2023 End: 09-07-2023 ambulatory Herberth Joana Other [facility] Other Start: 09-07-2023 Telephone encounter Herberth Joana [facility] Start: 08-28-2023 End: 08-28-2023 ambulatory Herberth Joana Other [facility] Other Start: 08-28-2023 Telephone encounter Herberth Joana [facility] Start: 08-21-2023 End: 08-22-2023 ambulatory Jayshree Vargas MD Facility:[facility] Start: 08-17-2023 End: 08-17-2023 ambulatory Herberth Joana Other [facility] Other Start: 08-17-2023 Office outpatient visit 25 minutes Herberth Joana [facility] Start: 05-08-2023 End: 05-08-2023 ambulatory HETAL [facility] Start: 04-04-2023 End: 04-04-2023 ambulatory SHAIKH Dimitry OHARA Facility:[facility] Start: 03-24-2023 End: 03-25-[address] STEPH GRANADOS Facility:[facility] Start: 03-23-2023 ambulatory JOO [facility] Start: 03-02-2023 End: 03-02-2023 ambulatory Herberth Joana Other [facility] Other Start: 03-02-2023 Office outpatient visit 25 minutes Herberth Joana [facility] Start: 02-25-2023 End: 02-26-2023 ambulatory HERBERTH JOANA Facility:[facility] Start: 02-22-2023 End: 02-23-2023 ambulatory BO MCCLAIN . Facility:[facility] Start: 12-15-2022 End: 12-16-[address] JACK HALL . Facility:[facility] Start: 12-08-2022 End: 12-08-2022 ambulatory Shaikh Lev Facility:[facility] Start: 12-08-2022 End: 12-08-2022 Admission to same day surgery center MD Shaikh Ohara Work Phone: [facility] Work Phone: Start: 12-08-2022 End: 12-08-2022 ambulatory MD Shaikh Ohara Work Phone: [facility] Work Phone: Start: 11-11-2022 End: 11-11-[address] JACK HALL . Facility:[facility] Start: 11-09-2022 End: 11-09-2022 ambulatory Gilma Gonzalezs Other [facility] Other Start: 11-09-2022 Telephone encounter Gilma Gonzalezs [facility] Start: 08-19-2022 End: 08-20-2022 ambulatory HERBERTH JOANA Facility:[facility] Start: 08-09-2022 End: 08-09-2022 ambulatory Herberth Joana Other [facility] Other Start: 08-09-2022 Office outpatient visit 10 minutes Herberth Joana [facility] Start: 08-09-2022 Telephone encounter Herberth Joana [facility] Start: 08-05-2022 Telephone encounter Herberth Joana [facility] Start: 08-05-2022 End: 08-06-2022 ambulatory HERBERTH JOANA [facility] Other Start: 07-08-2022 End: 07-08-2022 ambulatory Gato Domingo Other [facility] Other Start: 07-08-2022 Telephone encounter Gato Cesar ck [facility] Start: 07-05-2022 End: 07-06-2022 ambulatory SHAIKH Dimitry OHARA Facility:[facility] Start: 06-08-2022 End: 06-09-2022 ambulatory SHAIKH Dimitry OHARA Facility:[facility] Start: 06-07-2022 End: 06-07-2022 ambulatory SHAIKH Dimitry FABIRD Facility:[facility] Start: 01-24-2022 End: 01-25-2022 ambulatory PHYSICIAN UNKNOWN Facility:[facility] Start: 11-17-2021 End: 11-17-2021 ambulatory Herberth Joana Other [facility] Other Start: 11-17-2021 Office outpatient visit 15 minutes Herberth Joana [facility] Start: 08-30-2021 Office outpatient visit 15 minutes Rena Ginty [facility] Start: 09-11-2020 End: 09-11-2020 Chart abstracting Miguelito Cielo Work Phone: Hematology/Oncology Start: 09-11-2020 End: 09-11-2020 Patient encounter procedure External Provider [facility] Start: 09-11-2020 Results Only External Provider [facility]ter [facility] Start: 09-30-2019 End: 09-30-[address] [facility] [place] Start: 07-07-2017 End: 07-07-2017 Admission to day surgery [facility] Start: 05-24-2004 Evaluation and management of inpatient [facility] [place] Start: 04-26-2004 Evaluation and management of inpatient [facility] [place] Procedures Date Procedure Procedure Detail Performing Clinician Start: 12-08-2022 Colonoscopy MD Shaikh Ohara Work Phone: Start: 09-11-2020 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 [employer] al Provider Start: 09-11-2020 EXTERNAL LAB External P rovider Start: 09-11-2020 EXTERNAL PROCEDURE Exte rnal Provider Start: 09-30-2019 Ultrasonography of b ilateral kidneys Steph Collier Plan of Treatment Date Care Activity Detail Author Start: 12-08-2022 [facility] Start: 07-07-2020 Influenza vaccination INFLUENZA (#1) [facility] Start: 2006 [facility] VACCINE (1 of 2) SHINGRIX VACCINE (1 of 2) [facility] Start: 2006 Tuberculosis screening COLORECTAL CANCER SCREENING,SEE MODIFIER [facility] Start: 2001 DIABETES SCREEN DIABETES SCREEN [facility] Start: 2001 LIPID SCREEN LIPID SCREEN [facility] Start: 1996 Mammography MAMMOGRAM [facility] Start: 1986 HPV TESTING HPV TESTING [facility] Start: 1977 PAP TESTING PAP TESTING [facility] Start: 1975 Urine microalbumin profile DTAP,TDAP,TD (1 - Tdap) [facility] Start: 1974 HEPATITIS C SCREENING HEPATITIS C SCREENING [facility] Start: 1974 HIV SCREENING HIV SCREENING [facility] Patient Education Colon Polypect shahram Hemorrhoids (DC) Diverticulosis (DC) [facility] Work Phone: [facility] Immunizations Immunization Date Immunization Notes Care Provider Fa araceli 07-18-2018 Depo-Medrol 40 mg Rena Gint y Other [facility] Other 01-31-2018 Depo-Medrol 40 mg Rena Gint y Other [facility] Other 08-09-2017 influenza virus vaccine, unspecified formulation Steph Collier Work Phone: [facility] 08-09-2017 influenza, seasonal, injectable, preservative free Rena Ginty Other [facility] Other Payers Date Payer Category Payer Unknown 2022 Self-pay [id number] 2021 Medicare [id number] 2020 Medicaid [id number] 2019 Medicaid MEDICAID [facility] MEDICAID [id number] 2019-Present Medicaid [id number] 2016 Medicare MEDICARE MEDICAR E A AND B [id number] 2016-Present [place] [id number] 1959 Unknown [id number] 1956 Unknown [id number] 2.16.840.1.030404.3.579.2.647 1956 Unknown [id number] 2.16.840.1.932533.3.579.2.593 1956 Unknown [id number] 2.16.840.1.136922.3.579.2.593 1956 Unknown [id number] 2.16.840.1.398862.3.579.2.593 1956 Unknown [id number] 2.16.840.1.113810.3.579.2.593 1956 Unknown [id number] 2.16.840.1.991900.3.579.2.593 1956 Unknown [id number] 2.16.840.1.498803.3.579.2.593 1956 Unknown [id number] 2.16.840.1.484484.3.579.2.593 1956 Unknown [id number] 2.16.840.1.245040.3.579.2.593 1956 Unknown [id number] 2.16.840.1.357736.3.579.2.593 1956 Unknown [id number] 2.16.840.1.155803.3.579.2.593 1956 Unknown [id number] 2.16.840.1.256182.3.579.2.593 1956 Unknown [id number] 2.16.840.1.200666.3.579.2.1259 1956 Unknown [id number] 2.16.840.1.239193.3.579.2.1259 1956 Unknown [id number] 2.16.840.1.068656.3.579.2.1258 1956 Unknown [id number] 2.16.840.1.090143.3.579.2.1259 1956 Unknown [id number] 2.16.840.1.352306.3.579.2.9 1956 Unknown [id number] 2.16.840.1.453053.3.579.2.9 1956 Unknown [id number] 2.16.840.1.693247.3.579.2.1258 1956 Unknown [id number] 2.16.840.1.626952.3.579.2.196 1956 Unknown [id number] 2.16.840.1.025873.3.579.2.196 1956 Unknown [id number] 2.16.840.1.114246.3.579.2.196 1956 Unknown [id number] 2.16840.1.229042.3.579.2.196 1956 Unknown [id number] 2.16.840.1.025367.3.579.2.196 Medicare [id number] Unknown HCAP/HFA/FAP Active [id number] Unknown [id number] 2.16.840.1.874594.3.579.2.531 Social History Date Type Detail Facility Tobacco smoking stat [facility] Unknown if ever smoked [facility]: 1955 Sex Assigned At Female F [facility] Start: 09-11-2020 End: 03-14-2024 Tobacco smoking status NHIS Never smoker [facility] Start: 09-11-2020 Tobacco use and exposure Never used [facility] Start: 09-11-2020 Alcohol intake Lifetime non-d my (finding) [facility] Start: 09-11-2020 History SDOH Alcohol Frequency 1 [facility] Sex Assigned At Not on file [facility] Sex Assigned At Sex Assigned At [facility] Other Goals Date Patient Goal Desired Activity /State Clinical Notes 08-30-2021 to 09-07-2023 Note Date & Type Note Facility 09-07-2023 Evaluation note Encounter Date Diagnosis Assessment Notes Sep, Hypomagnesemia (ICD-10 - E83.42) [facility] Other 10-23-2023 Evaluation note* Encounter Date Diagnosis Assessment Notes Treatment Notes Treatment Clinical Notes Aug, Nico bolden cr kid I-IV (ICD-10 - I12.9) [facility] Other 10-12-2023 Evaluation note* Encounter Date Diagnosis Assessment Notes Treatment Notes Treatment Clinical Notes Aug, Nico bolden cr kid I-IV (ICD-10 - [...] PPI induced GI losses. Continue oral Magnesium [facility] Chief Complaint: Patient here for 1 year follow up CAD and hypertension. She was recently discharged from [facility] for Covid-19. She says hydrochlorothiazide was [...] breath since then. 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 Her chest pain is noncardiac. She has no other cardiac complaints. Cardiology ROS: Review of Systems Cardiovascular: Positive for chest pain and dyspnea on exertion. Respiratory: Positive for wheezing. Musculoskeletal: Positive for arthritis, back pain, joint pain and myalgias. Neurological: Positive for light-headedness. All other systems reviewed and are negative. Past Medical History She has a past medical history of Cancer (CMS/[facility]) and Hypertension. Surgical History She has a [...] 325 mg by mouth., Disp: , Rfl: azpphgbopgq-nedziyyfu-fumndrac 100-62.5-25 mcg blister with device, , Disp: [...] CTAB, no increased eff (more content not included)...[facility]05-[facility] NotePROCEDURE: XR HIP RT 2 3V W PELVIS HISTORY: Pain in right hip joint , chronic COMPARISON: XR L-spine 02/26/2019, XR left hip with pelvis 03/11/2017 FINDINGS: BONES:Complete loss of the right hip joint space with vmnl-sh-psep articulation, subchondral sclerosis and cysts, and large periarticular degenerative osteophytes. No fracture or dislocation. Left hip replacement. Mechanical fusion of L5-S1 and moderate dextroscoliosis of lumbar spine. SOFT TISSUES:No visible soft tissue swelling. EFFUSION:None visible. OTHER: Negative. IMPRESSION: 1. Marked degenerative joint disease of the right hip; progressed since prior study. 2. Stable surgical changes. Electronically authenticated by: TSEPH GRANADOS Date: 2023-03-24 12:55[facility]05-18-2023 NoteSubjective 03/23/23 Diana Champion is a [...] LIGATION Past Medical History: Diagnosis Date Cancer ([facility]) Hypertension Objective General: Body mass index is [...] from the patient's PCP as well as securities settlement processor for a right anterior total hip arthroplasty. [...] may be an additional personal documentation from me.[facility]04-[facility] Evaluation note* Encounter Date Diagnosis [...] PPI induced GI losses. Continue oral Magnesium [facility]* Encounter Date Diagnosis Assessment Notes Treatment Notes Treatment Clinical Notes Nov, Hypokalemia (ICD-10 - E87.6) Nov, Hypomagnesemia (ICD-10 - E83.42) [facility] Other 10-04-2022 Evaluation note* Encounter Date Diagnosis [...] office does not accept her new insurance. [facility] Other 09-02-2022 Evaluation note* Encounter Date Diagnosis Assessment Notes Treatment Notes Treatment Clinical Notes Jul, History of colon cancer (ICD-10 - Z85.038) [facility] Other 01-12-2022 Evaluation note* Encounter Date Diagnosis [...] potassium wasting. I have prescribed oral potassium. [facility] Other 10-25-2021 Evaluation note* Encounter Date Diagnosis [...] Patient care instructions given in writting by [facility] Care At Home document [facility] Other [facility]No [facility] Other Evaluation note* Diagnosis Onset Date Resolution Status History of colon cancer acut e [facility] Work Phone: Evaluation note* Diagnosis Onset Date Resolution Status Hypokalemia acute Hypomagnesemia acute Stage 3 chronic kidney disease acute COVID noneactive Pneumonia noneactive [facility] Work Phone: History general Narrative [...] IN 08/2019 Hospitalization History HIP REVISION 03/2020 [facility] Other History general Narrative - Reported* Type [...] Hospitalization History COVID X 2 WEEKS 04/2023 [facility] Other Hospital Discharge instructions Additional Instructions DISCHARGE [...] if you have any problems. -Office number [phone] Work Phone: Advance Directives Advance Directive Response Recorded Date/ Time Advance Directives Yes June 29, 2017 1:43pm Advance Directive Response Recorded Date/ Time Advance Directives Yes June 29, 2017 12:43pm Chief Complaint and Reason for Visit Chief Complaint ^ ^ JEANNE, Anemia of renal disease, htn Chief Complaint ^ ^ Hx of Colon Cancer Reason for Visit History of colon can cer Chief Complaint ^ ^ RENAL 6 month f/u Reason for Visit Hypokalemia Hypomagnesemia Stage 3 chronic kidney disease COVID Pneumonia Assessments No Assessments Information Available Summary Purpose Family History Relationship Condition Age at Onset Recorded Date/T gladys father Cardiovascular disease Unknown Not Specified Congestive heart failure Unknown Relationship Condition Age at Onset Recorded Date/T gladys father Cardiovascular disease Unknown Not Specified Congestive heart failure Unknown brother Hypertension Unknown father Heart disease Unknown Hypertension Unknown Unknown Not Specified Heart disease Unknown sister Hypertension Unknown Additional Source Comments Source Comments (unrecognize d section and content) In the event this informatio n is protected by the Federal Confidentiality of Alcohol and Drug Abuse Patient Records regulations: The Federal rules restrict any use of the information to criminally investigate or prosecute any alcohol or drug abuse patient.[facility] event this information is protected by the Federal Confidentiality of Alcohol and Drug Abuse Patient Records regulations: The Federal rules restrict any use of the information to criminally investigate or prosecute any alcohol or drug abuse patient.[facility] the event this information is protected by the Federal Confidentiality of Alcohol and Drug Abuse Patient Records regulations: The Federal rules restrict any use of the information to criminally investigate or prosecute any alcohol or drug abuse patient.[facility] the event this information is protected by the Federal Confidentiality of Alcohol and Drug Abuse Patient Records regulations: The Federal rules restrict any use of the information to criminally investigate or prosecute any alcohol or drug abuse patient.[facility] INFORMATION SOURCE (unrecogn ized section and content) DATE CREATED AUTHOR 03/03/2022 [facility] DATE CREATED AUTHOR AUTHOR'S ORGANIZ ATION 04/17/2023 [facility] DATE CREATED AUTHOR AUTHOR'S ORGANIZ ATION 05/08/2023 [facility] DATE CREATED AUTHOR AUTHOR'S ORGANIZ ATION 06/07/2023 [facility] DATE CREATED AUTHOR AUTHOR'S ORGANIZ ATION 02/26/2024 [facility] DATE CREATED AUTHOR AUTHOR'S ORGANIZ ATION 02/28/2024 [facility] REASON FOR VISIT (unrecogniz ed section and [...] Status Dates Steph Collier Attending Provider Active Start: Paolo wing 2003 Team Status: Active Member Role Status Dates Steph Collier Attending Provider Active Start: Paolo deras 2003 Team Status: Active Member Role Status Dates Herberth Bernard MD Attending Provider Active Start : March 06, 2024 Shaikh Lev MD Primary Care Provider Active Start: March 06, 2024 Team Status: Inactive Member Role Status Dates Shaikh Lev MD Primary Care Provider Active Start: March 14, 2024 End: March 14, 2024 Herberth Bernard MD Attending Provider Active Start : March 14, 2024 End: March 14, 2024 Goals (unrecognized section and content) Goals may be documented in a n alternate section FOR RECORDS PERTAINING TO PATIENTS WHO ARE [...] PRIMARY CLINICAL RECORDS. [facility] [employer] provides no warranty or guarantee of the accuracy or completeness of information in this document.
== END 2024-03-27 08:14 | disposition home or self-care (01) ==
LOC: PM 08:13
PROVIDERS: PCP Internal Medicine; Visit Provider Nurse Practitioner
DX: J45.51 Severe persistent asthma with (acute) exacerbation (principal); R06.02 Shortness of breath; R91.8 Other nonspecific abnormal finding of lung field; M47.814 Spondylosis without myelopathy or radiculopathy, thoracic region; M48.062 Spinal stenosis, lumbar region with neurogenic claudication; M54.16 Radiculopathy, lumbar region; M47.816 Spondylosis without myelopathy or radiculopathy, lumbar region; M96.1 Postlaminectomy syndrome, not elsewhere classified; M79.18 Myalgia, other site; M43.27 Fusion of spine, lumbosacral region; M16.11 Unilateral primary osteoarthritis, right hip; Z79.891 Long term (current) use of opiate analgesic; Z99.81 Dependence on supplemental oxygen
CPT/HCPCS: 71046; G0463

== ENCOUNTER 2024-03-27 14:26 | Outpatient (OUT) | payer OTHER, SELFPAY ==
--- NOTE | 2024-03-27 14:31 | XR_ITS ---
The [address] [address] Patient Name: JHONATAN MONTOYA MRN: [id number] date: 1955 Sex: F Assigned Patient Location: [facility] Current Patient Location: RAD Accession/Order Number: [id number] Exam Date: 03/27/2024 14:40 Report Date: 03/27/2024 16:02 At the request of: SHAIKH LUCITA Procedure: XR chest 2V EXAMINATION: XR chest 2V HISTORY: Severe Asthma With Acute Exacerbation J45.51 COMPARISON: 10/25/2023 TECHNIQUE: PA and lateral FINDINGS: LUNGS: 4.7 cm focal opacity identified in the right midlung. Minimal bibasilar infiltrates. VASCULATURE: No increased pulmonary vasculature. PLEURA: No pneumothorax, effusion, or pleural thickening. CARDIAC: No cardiomegaly or cardiac silhouette abnormality. MEDIASTINUM: No visible mass or adenopathy. BONES: No fracture or visible bone lesion. OTHER: Call results initiated through operations. XR/XR chest 2V IMPRESSION: Focal density in the right midlung. Pneumonia is favored. Follow-up after resolution of symptoms/treatment recommended to document resolution Electronically authenticated by: BRITTANY VANESSA Date: 03/27/2024 16:02
== END 2024-03-27 14:27 | disposition home or self-care (01) ==
LOC: RAD 14:27
PROVIDERS: PCP Internal Medicine; Visit Provider Internal Medicine
DX: J45.51 Severe persistent asthma with (acute) exacerbation (principal); R06.02 Shortness of breath; R91.8 Other nonspecific abnormal finding of lung field
CPT/HCPCS: 71046

== ENCOUNTER 2024-04-03 15:32 | Outpatient (OUT) | payer OTHER, SELFPAY ==
--- NOTE | 2024-04-03 15:41 | XR_ITS ---
The [address] [address] Patient Name: JHONATAN MONTOYA MRN: [id number] date: 1955 Sex: F Assigned Patient Location: [facility] Current Patient Location: [facility] Accession/Order Number: [id number] Exam Date: 04/03/2024 15:40 Report Date: 04/03/2024 16:27 At the request of: SHAIKH LUCITA Procedure: XR chest 2V EXAMINATION: XR chest 2V HISTORY: Pneumonia of right middle lobe due to infectious organism COMPARISON: TECHNIQUE: PA and lateral FINDINGS: LUNGS: Small amount of right mid lung infiltrates, significantly improved. The left lung is clear VASCULATURE: No increased pulmonary vasculature. PLEURA: Blunting of the right lateral costophrenic angle suggests a small pleural effusion CARDIAC: No cardiomegaly or cardiac silhouette abnormality. MEDIASTINUM: No visible mass or adenopathy. BONES: No fracture or visible bone lesion. OTHER: Negative. XR/XR chest 2V IMPRESSION: Interval improvement of right lung infiltrate Electronically authenticated by: BRITTANY VANESSA Date: 04/03/2024 16:27
== END 2024-04-03 15:33 | disposition home or self-care (01) ==
LOC: RAD 15:36
PROVIDERS: PCP Internal Medicine; Visit Provider Internal Medicine
DX: J18.9 Pneumonia, unspecified organism (principal); J45.51 Severe persistent asthma with (acute) exacerbation
CPT/HCPCS: 71046

== ENCOUNTER 2024-04-11 14:30 | Observation (INO) | payer OTHER, SELFPAY ==
[2024-04-11] VITALS (10 sets, daily range): BP systolic 115–120; BP diastolic 67–76; PULSE 67–83; TEMP 36.6; O2SAT 91–96; BMI 38.8
--- OUTSIDE RECORDS SUMMARY | 2024-04-11 14:53 | XMS_ITS | CCD ---
Author Organization [facility] ion [facility] Care Team Providers Care Strickler Attendant Name Role Phone Steph Collier Attending Provider Unavailable Chantel Rainey Primary Care Provider Unavailabl e JoanaHerberth Attending Provider Unavailable Unavailable Primary Care Provider Unavailabl e UNKNOWN, PHYSICIAN Referring Unavailable JOO LINN Attending Unavailable JOO LINN Admitting Unavailable UNKNOWN, PHYSICIAN Primary Care Unavailable Rena Hurd Unavailable Joana, Herberth Unavailable Gato Domingo Unavailable Steph Collier Attending Provider [phone] MD Gato Domingo Attending Provider [phone] MD Nicky Ohara Primary Care Provider [phone] Gilma Trent Unavailable JOANA, HERBERTH Attending Unavailable JOANA, HERBERTH Admitting Unavailable FAWWAD, SAUNDERS H Primary Care Unavailable HERBERTH BERNARD Consulting Unavailable SAMBO CASTELLANO Admitting Unavailable FAWWAD, SAUNDERS H Primary Care Unavailable FAWWAD, SAUNDERS H Consulting Unavailable BO MCKINNON Attending Unavailable BRITTANY GALDAMEZ Consulting Unavailable ISABEL ., DR SANTIAGO Admitting Unavailabl e KARBLANCA ., DR SANTIAGO Attending Unavailabl e KARBLANCA ., DR SANTIAGO Consulting Unavailabl e FAWWAMame, SAUNDERS H Primary Care Unavailable WILLIAMSBURG, DR BRITTANY Elizondo Consulting Unavailable DARWIN, DR [...] Attending Unavailable FAWWAD, SAUNDERS H Consulting Unavailable [facility] Attending Unavailable JOO LINN Attending Unavailable Fawwad, Saunders Primary Care Unavailable Gato Domingo Attending Unavailabl Gato Galindo Admitting Unavailabl e Alicia DRAPER, Andrius Alex Attending Unavailable Giedraitis , Andrius Vytautas Attending Unavailable Gijamaraitis , Andrius Vytautas Attending Unavailable Gijamaraitis , Andrius Vytautas Attending Unavailable Gilorenzaitis , Andrius Vytautas Attending Unavailable Steph Collier Attending Provider [phone] FAWWAD, SAUNDERS Attending Unavailable FAWWAD, SAUNDERS Attending Unavailable FAWWAD, SAUNDERS Attending Unavailable FAWWAD, SAUNDERS Attending Unavailable ROSHNI LEDESMA Attending Unavailable SHAIKH OHARA Attending Unavailable SHAIKH OHARA Attending Unavailable SHAIKH OHARA Attending Unavailable SHAIKH OHARA Attending Unavailable Unavailable Unavailable Unavailable Allergies Allergy Classification Reported Allergen(s) Allergy Type Date of Onset Reaction(s) Facility (4 sources) fentaNYL; Translations: [fentanyl] Drug Allergy 07-07-20 17 Hallucinating [facility] (2 sources) linezolid; Translations: [LINEZOLID] Drug Allergy 03-17-20 20 [facility] Repository (20 sources) Vancomycin; Translations: [VANCOMYCIN] Drug Allergy 03-17-20 20 Unknown, Unknown Reaction [facility] Repository (12 sources) DENIES METAL SENSITITIVITY Propensity to adverse reactions 03-14-20 24 Unknown, Unknown Reaction [facility] Medications Current Medications Medication Drug Class(es) Dates Sig (Normalized) Sig (Original) 30 ACTUAT fluticasone furoate 0.2 MG/ACTUAT / umeclidinium 0.0625 MG/ACTUAT / vilanterol 0.025 MG/ACTUAT Dry Powder Inhaler [Trelegy] (2 sources) take 1 puff(s) by inhalation once daily Trelegy Ellipta 200-62.5-25 MCG/INH 1 puff Inhalation Once a day Active [id number] 200 actuat albuterol 0.09 mg/actuat metered dose [...] 14, 2024 12:00am Start: 12-08-2022 End: 03-14-2024 Kopjxiegwbu-Upaxlqpjw-Giwgbv er (Trelegy Ellipta) 200-62.5-25 mcg blister with [...] 14, 2024 10:41am take 1 capsule by [facility] every twelve hours Omeprazole 20 MG 1 CAPSULE Orally TWICE A DAY Active take 1 capsule by [facility] once daily Omeprazole 20 MG 1 capsule [...] 1 puff(s) by inhalation twice daily Ipratropium [place] (Atrovent Hfa) 17 mcg/actuation Hfa Aerosol Inhaler [...] distribution width (RBC) [Ratio] 13.2 % 11.0-15.0 [facility] Estimated glomerular filtrat ion rate (GFR) non- Americanon 03-06-2024 GFR/1.73 sq M.predicted among non-blacks MDRD (S/P/Bld) [Vol rate/Area] 57 mL/min/{1.73_m2} >=60 [facility] Hematocrit Auto (Bld) [Volum e fraction]on 03-06-2024 Hematocrit (Bld) [Volume fraction] 38.7 % 36.0-48.0 [facility] Hemoglobin [Mass/volume] in Bloodon 03-06-2024 Hemoglobin (Bld) [Mass/Vol] 12.2 g/dL 12.0-16.0 [facility] Laboratory - Chemistry and C hemistry - challengeon 03-06-2024 Albumin [Mass/Vol] 3.0 g/dL 3.4-5.[address] [facility] Calcium [Mass/Vol] 8.8 mg/dL 8.5-10.[address] [facility] Chloride [Moles/Vol] 104 mmol/L 98-107 [facility] CO2 [Moles/Vol] 32.2 mmol/L 21.0-32.0 [facility] Creatinine [Mass/Vol] 0.97 mg/dL 0.55-1.02 [facility] GFR/1.73 sq M.predicted MDRD (S/P/Bld) [Vol rate/Area] mL/min/{1.73_m2} >=60 [facility] Glucose [Mass/Vol] 67 mg/dL 74-[address] [facility] Magnesium [Mass/Vol] 1.9 mg/dL 1.8-2.4 [facility] Potassium [Moles/Vol] 3.4 mmol/L 3.5-5.1 [facility] Sodium [Moles/Vol] 143 mmol/L 136-[address] [facility] Urate [Mass/Vol] 5.0 mg/dL 2.6-6.0 [facility] Urea nitrogen [Mass/Vol] 16.0 mg/dL 7.0-18.0 [facility] Urea nitrogen/Creatinine [Mass ratio] 16.5 mg/mg [facility] Leukocytes [#/volume] correc melanie for nucleated erythrocytes in Blood by Automated counon 03-06-2024 WBC corrected for nucl RBC Auto (Bld) [#/Vol] 8.1 10 3/uL 4.0-11.0 [facility] MCH Auto (RBC) [Entitic mass ]on 03-06-2024 MCH (RBC) [Entitic mass] 30.4 pg 26.7-34.0 [facility] MCHC Auto (RBC) [Mass/Vol]on 03-06-2024 MCHC (RBC) [Mass/Vol] 31.5 g/dL 29.9-35.2 [facility] MCV Auto (RBC) [Entitic vol] on 03-06-2024 MCV (RBC) [Entitic vol] 96.5 fL 81.0-99.0 [facility] No Panel Informationon 03-06 Urine Random Creatinine 63.27 mg/dL 20.00-300.00 [facility] Urine Random Total Protein <6.0 mg/dL <=11.9 [facility] 25-Hydroxy Vitamin D Total 37.1 ng/mL [facility] Comment on above: <20 ng/mL Vit D defi cient20-<30 ng/mL Vit D ecxdbgapzpzx58-180 ng/mL Vit D sufficient>100 ng/mL Potential Toxicity Parathyroid Hormone (Intact) 36 pg/mL 15-65 [facility] Comment on above: Performed at: - L [employer] [id number] Director: Raphael Marrero PhD, Phone: [phone] Phosphorus Level 3.2 mg/dL 2.6-4.7 [facility] Platelet mean volume Auto (B ld) [Entitic vol]on 03-06-2024 Platelet mean volume (Bld) [Entitic vol] 9.1 fL 9.5-13.5 [facility] Platelets Auto (Bld) [#/Vol] on 03-06-2024 Platelets (Bld) [#/Vol] 247 10 3/uL 150-450 [facility] RBC Auto (Bld) [#/Vol]on RBC (Bld) [#/Vol] 4.01 10 6/uL 4.20-5.40 [facility] Serum or plasma anion gap de terminationon 03-06-2024 Anion gap [Moles/Vol] 10.2 mmol/L [facility] Follow-Upon 05-08-2023 Follow-Up [id number] Nell Champion 1955 F Date Provider Department Center 05/08/2023 Siddharth-HETAL SCALES PRASANTH Baker Family History Problem Relation Age of Onset Heart failure Mother Heart disease Father Family Status - Relation Status Age at Mother Father Level of Service:[address] [place] OFFICE/OUTPATIENT ESTABLISHED LOW MDM 20-29 MIN Normal [facility] 05-03-2023 36 PATIENT CALLED TO CANCEL SURGERY FOR July D/T HER LUNG DISEASE. WILL CALL TO RESCHEDULE WHEN FULLY HEALED FROM LUNGS AND CLEARED//[facility] Normal [facility] 04-19-2023 36 FYI CALLED PATIENT T O F/U ON MEDICAL AND PULMONARY CLEARANCES FOR R ELZA ON 05/19 AND PRE-OP RIYA'T 04/27 WITH US AND PATIENT IS CURRENTLY INPATIENT SINCE LAST WEEK D/T COVID AND PULMONARY ISSUES, SHE WILL CALL US ON 04/25 WITH PROGRESS, PLEASE ADVISE IF WE SHOULD CANCEL SURGERY FOR NOW..THANKS//[facility] SYMPTOMATIC COVID-19 ANTIGEN on 04-04-2023 EUA Statement SEE BELOW Normal [facility] Comment on above: Result Comment: This [...] sooner. Performed By: #### C VDAGS #### [facility] [address], [place] [address] Dr. Shayne Roldan SARS-CoV-2 (COVID-19) RNA KAYLEE+probe Ql (Unsp spec) Positive Abnormal NEGATIVE [facility] Comment on above: Performed By: #### C VDAGS #### [facility] [address], [place] [address] Dr. Shayne Roldan XR LSPINE 2_3 VIEWSon [...] STEPH GRANADOS Date: 2023-03-24 12:52 Normal [facility] PTH INTACTon 02-27-2023 PTH, Intact 87 pg/mL Critically high 15-65 [facility] [place] [facility] Comment on above: Performed By: #### P THINT #### [facility] [address] [place] [address] Dr. Shayne Roladn HEMOGRAM AND PLATELon 2022 Hematocrit (Bld) [Volume fraction] 44.4 % Normal 36.0-48.0 [facility] Comment on above: Performed By: #### H H #### [facility] [address] [place] [address] Dr. Shayne Roldan Hemoglobin (Bld) [Mass/Vol] 14.5 g/dL Normal 12.0-16.0 [facility] Comment on above: Performed By: #### H H #### [facility] [address] [place] [address] Dr. Shayne Roldan MCH (RBC) [Entitic mass] 30.3 pg Normal 26.7-34.0 [facility] Comment on above: Performed By: #### H H #### [facility] [address] [place] [address] Dr. Shayne Roldan MCHC (RBC) [Mass/Vol] 32.7 g/dL Normal 29.9-35.2 [facility] Comment on above: Performed By: #### H H #### [facility] [address] [place] [address] Dr. Shayne Roldan MCV (RBC) [Entitic vol] 92.9 fL Normal 81.0-99.0 [facility] Comment on above: Performed By: #### H H #### [facility] [address] [place] [address] Dr. Shayne Roldan PLT 367 103/ul Normal 150-450 [facility] Comment on above: Performed By: #### H H #### [facility] [address] [place] [address] Dr. Shayne Roldan RBC 4.78 106/ul Normal 4.20-5.40 [facility] Comment on above: Performed By: #### H H #### [facility] [address] [place] [address] [address] Shayne Roldan WBC 9.9 103/ul Normal 4.0-11.0 [facility] Comment on above: Performed By: #### H H #### [facility] [address] [place] [address] Dr. Shayne Roldan MAGNESIUMon 02-25-2023 Magnesium [Mass/Vol] 1.6 mg/dL Critically low 1.8-2.4 [facility] Comment on above: Performed By: #### M G, RENAL, URIC #### [facility] [address] [place] [address] Dr. Shayne Roldan RENAL FUNCTION PANELon 02-25 Albumin [Mass/Vol] 3.4 g/dL Normal 3.4-5.0 [facility] Comment on above: Performed By: #### M G, RENAL, URIC #### [facility] [address] [place] [address] Dr. Shayne Roldan Calcium [Mass/Vol] 8.7 mg/dL Normal 8.5-10.1 [facility] Comment on above: Performed By: #### M G, RENAL, URIC #### [facility] [address] [place] [address] Dr. Shayne Roldan Chloride [Moles/Vol] 104 mmol/L Normal 98-107 [facility] Comment on above: Performed By: #### M G, RENAL, URIC #### [facility] [address] [place] [address] Dr. Shayne Roldan CO2 [Moles/Vol] 25.9 mmol/L Normal 21.0-32.0 [facility] [place] [facility] Comment on above: Performed By: #### M G, RENAL, URIC #### [facility] [address] [place] [address] Dr. Shayne Roldan Creatinine [Mass/Vol] 1.19 mg/dL Critically high 0.55-1.02 [facility] Comment on above: Performed By: #### M G, RENAL, URIC #### [facility] [address] [place] [address] [address] Shayne Roldan EGFR-AF TAJIK 55 mL/min/1.73m2 Critically low >=60 [facility] Comment on above: Performed By: #### M G, RENAL, URIC #### [facility] [address] [place] [address] [address] Sahyne Roldan EGFR-NON AF TAJIK 45 mL/min/1.73m2 Critically low >=60 [facility] Comment on above: Performed By: #### M G, RENAL, URIC #### [facility] [address] [place] [address] [address] Shayne Roldan Glucose [Mass/Vol] 193 mg/dL Critically high 74-106 [facility] Comment on above: Performed By: #### M G, RENAL, URIC #### [facility] [address] [address] [address] Shayne Roldan Phosphate [Mass/Vol] 3.2 mg/dL Normal 2.6-4.7 [facility] Comment on above: Performed By: #### M G, RENAL, URIC #### [facility] [address] [address] [address] Shayne Roldan Potassium [Moles/Vol] 3.9 mmol/L Normal 3.5-5.1 [facility] Comment on above: Performed By: #### M G, RENAL, URIC #### [facility] [address] [address] [address] Shayne Roldan Sodium [Moles/Vol] 140 mmol/L Normal 136-145 [facility] Comment on above: Performed By: #### M G, RENAL, URIC #### [facility] [address] [address] [address] Shayne Roldan Urea nitrogen [Mass/Vol] 17.0 mg/dL Normal 7.0-18.0 [facility] Comment on above: Performed By: #### M G, RENAL, URIC #### [facility] [address] [address] [address] Shayne Roldan UA RANDOM W/MICROSCOPICon 04 -22-2023 BACTERIA TRACE Abnormal NONE SEEN [facility] Comment on above: Performed By: #### M G, RENAL, URIC #### [facility] [address] [address] [address] Shayne Roldan Bilirubin Ql (U) Negative Normal NEGATIVE [facility] [place] [facility] Comment on above: Performed By: #### M G, RENAL, URIC #### [facility] [address] [address] [address] Shayne Roldan CAST NONE SEEN Normal NONE SEEN [facility] Comment on above: Performed By: #### M G, RENAL, URIC #### [facility] [address] [address] [address] Shayne Roldan Clarity (U) CLEAR Normal CLEAR [facility] Comment on above: Performed By: #### M G, RENAL, URIC #### [facility] [address] [place] [address] Dr. Shayne Roldan Color (U) LT. YELLOW Normal YELLOW [facility] Comment on above: Performed By: #### M G, RENAL, URIC #### [facility] [address] [address] [address] Shayne Roldan Crystals LM Nom (Urine sed) NONE SEEN Normal NONE SEEN [facility] Comment on above: Performed By: #### M G, RENAL, URIC #### [facility] [address] [place] [address] Dr. Shayne Roldan Epithelial cells LM Ql (Urine sed) RARE Normal NONE SEEN /RARE [facility] Comment on above: Performed By: #### M G, RENAL, URIC #### [facility] [address] [address] [address] Shayne Roldan Glucose Ql (U) Negative Normal NEGATIVE [facility] Comment on above: Performed By: #### M G, RENAL, URIC #### [facility] [address] [place] [address] [address] Shayne Roldan Hemoglobin Ql (U) Negative Normal NEGATIVE [facility] Comment on above: Performed By: #### M G, RENAL, URIC #### [facility] [address] [address] [address] Shayne Roldan Ketones Ql (U) Negative Normal NEGATIVE [facility] Comment on above: Performed By: #### M G, RENAL, URIC #### [facility] [address] [place] [address] [address] Shayne Roldan LEUKOCYTES Negative Normal NEGATIVE [facility] Comment on above: Performed By: #### M G, RENAL, URIC #### [facility] [address] [place] [address] [address] Shayne Roldan MUCOUS NONE SEEN Normal NONE SEEN [facility] Comment on above: Performed By: #### M G, RENAL, URIC #### [facility] [address] [place] [address] [address] Shayne Roldan Nitrite Ql (U) Negative Normal NEGATIVE [facility] Comment on above: Performed By: #### M G, RENAL, URIC #### [facility] [address] [place] [address] Dr. Shayne Roldan pH (U) 5.0 [pH] Normal 5-9 [facility] Comment on above: Performed By: #### M G, RENAL, URIC #### [facility] [address] [place] [address] Dr. Shayne Roldan RBC 0-2 Normal 0-2 [facility] Comment on above: Performed By: #### M G, RENAL, URIC #### [facility] [address] [place] [address] Dr. Shayne Roldan SPEC GRAVITY 1.025 Normal 1.005-<=1.025 [facility] Comment on above: Performed By: #### M G, RENAL, URIC #### [facility] [address] [place] [address] Dr. Shayne Roldan UA PROTEIN Negative Normal NEGATIVE/ TRACE [facility] Comment on above: Performed By: #### M G, RENAL, URIC #### [facility] [address] [place] [address] Dr. Shayne Roldan Urobilinogen Qn (U) 0.2 {Rogelio'U}/dL Normal 0.2 - 1. 0 [facility] Comment on above: Performed By: #### M G, RENAL, URIC #### [facility] [address] [place] [address] Dr. Shayne Roldan WBC 0-2 Abnormal NONE SEEN [facility] Comment on above: Performed By: #### M G, RENAL, URIC #### [facility] [address] [place] [address] Dr. Shayne Roldan URIC ACID SERUMon 02-25-2023 Urate [Mass/Vol] 6.1 mg/dL Critically high 2.6-6.0 [facility] Comment on above: Performed By: #### M G, RENAL, URIC #### [facility] [address] [place] [address] Dr. Shayne Roldan URINE T PROTEIN CREAT RATIOo n 02-25-2023 Protein (U) [Mass/Vol] 13.0 mg/dL Critically high <=12.0 [facility] Comment on above: Performed By: #### M G, RENAL, URIC #### [facility] [address] [place] [address] Dr. Shayne Roldan UR PROT CREAT RAT 0.16 Normal [facility] Comment on above: Performed By: #### M G, RENAL, URIC #### [facility] [address] [place] [address] Dr. Shayne Roldan URINE CREAT 83.60 mg/dL Normal 20.00-300.00 [facility] Comment on above: Performed By: #### M G, RENAL, URIC #### [facility] [address] [place] [address] Dr. Shayne Roldan VITAMIN D 25 OHon 02-25-2023 VIT D 25-OH 41.6 ng/mL Normal [facility] Comment on above: Performed By: #### M G, RENAL, URIC #### [facility] [address] [place] [address] Dr. Shayne Roldan VIT D RANGES SEE BELOW Normal [facility] Comment on above: Result Comment: <20 ng/mL Vit D deficient 20 - <30 ng/mL Vit D insufficient 30 - 100 ng/mL Vit D sufficient >100 ng/mL Potential Toxicity Performed By: #### M G, RENAL, URIC #### [facility] [address] [place], [place] [address] Dr. Shayne Roldan XR CHEST 2 Von [...] by: BRITTANY GALDAMEZ Date: 2023-02-22 16:15 Normal [facility] MAMM SCREEN 3D PRATEEK CADon 12-15-2022 MAMM SCREEN 3D PRATEEK CAD Patient: DIANA CHAMPION Exam Date: 12/15/2022 : 1955 Gender:F Ordering : DR JACK HALL . Admission #: [id number] Family : Order #: [id number] CLICK HERE TO VIEW EXAM RADIOLOGY REPORT PROCEDURE: MAMMOGRAM SCREENING 3D BILATERAL CAD COMPARISON: MAMM SCREEN 3D PRATEEK CAD, 11/26/2021. INDICATIONS: Calculator Name NCI Breast Cancer Risk Assessment Tool 5 Year Breast Cancer Risk 1.20% Lifetime Breast Cancer Risk 4.40% Personal Breast Cancer No Personal Ovarian Cancer No Treatments Excision, radiation, chemotherapy Family Cancers None LOCATION: [facility] BREAST COMPOSITION: Almost entirely fatty. [...] Walters MD on 12/15/2022 at 10:51 Normal [facility] XR DEXA BONE DENSITYon 12-15 XR DEXA [...] by: STEPH GRANADOS Date: 2022-12-15 09:50 Normal [facility] Fran 12-08-2022 L - -------- Specimen: [id number] Received: 12/08/22 Status: CELIA Kay Num: [id number] Spec Type: Surgical Subm Dr: Gato Domingo MD Tissues: A Colon Biopsy (DESC COL POLYP) Procedures: HE/2, Gross/Micro L4 -------- Age/ Patient Sex Location Account Attending Physician -------- Champion,Diana Meng 67/F [id number] Gato Domingo MD -------- SPEC NUM: [id number] RECD: 12/08/22 STATUS: CELIA KAY NUM: [id number] KENDRA: 12/08/[address] [facility] [address]: Gato Domingo MD ENTERED: 12/08/22 [facility] [address]: KHRIS TYPE: Surgical DEPT: S ENTERED BY: [id number] RECV BY: [id number] ORDERED: HE/2, Gross/Micro L4 ORDERED: HE/2, Gross/Micro [...] support the above pathologic diagnosis. CPT Codes 92765 -------- -------- Specimen: [id number] Received: 12/08/22 Status: CELIA Kay Num: [id number] Spec Type: Surgical Subm Dr: Gtao Domingo MD Tissues: A Colon Biopsy (DESC COL POLYP) Procedures: HE/2, Gross/Micro L4 -------- Patient: ChampionDiana Meng [id number] (Continued) -------- Signed (signature on file) Eunice Rosa MD 12/09/22 1053 [facility] PAP ACOG PANEL 2: 30 to 65on 11-16-2022 . . Normal [facility] Comment on above: Performed By: #### [id number] #### [facility] [address] [place] [address] Dr. Shayne Roldan Age Gdln ACOG Testing Comment [facility] Comment on above: Result Comment: <21 or >65 or no age provided Performed By: #### [id number] #### [facility] [address] [place] [address] Dr. Shayne Roldan DIAGNOSIS: Comment [facility] Comment on above: Result Comment: NEGA TIVE FOR INTRAEPITHELIAL LESION OR MALIGNANCY. Performed By: #### [id number] #### [facility] [address] [place] [address] Dr. Shayne Roldan Methodology: Comment Normal [facility] Comment on above: Result Comment: This liquid based ThinPrep(R) pap test was screened with the use of an image guided system. Performed By: #### [id number] #### [facility] [address] [place] [address] Dr. Shayne Roldan Note: Comment Normal [facility] Comment on above: Result Comment: The Pap smear is a screening test designed to aid in the detection of premalignant and malignant conditions of the uterine cervix. It is not a diagnostic procedure and should not be used as the sole means of detecting cervical cancer. Both false-positive and false-negative reports do occur. . Performed By: #### [id number] #### [facility] [address] [place] [address] Dr. Shayne Roldan Performed by: Comment Normal [facility] Comment on above: Result Comment: Onur [employer]orter (ASCP) Performed By: #### [id number] #### [facility] [address] [place] [address] Dr. Shayne Roldan Specimen adequacy: Comment Normal [facility] Comment on above: Result Comment: Sati sfactory for evaluation. Endocervical and/or squamous metaplastic cells (endocervical component) are present. Performed By: #### [id number] #### [facility] [address] [place] [address] Dr. Shayne Roldan RENAL FUNCTION PANELon 08-19 Albumin [Mass/Vol] 3.4 g/dL Normal 3.4-5.0 [facility] Comment on above: Performed By: #### M G, RENAL, URIC #### [facility] [address] [place] [address] Dr. Shayne Roldan Calcium [Mass/Vol] 8.4 mg/dL Critically low 8.5-10.1 Th [facility] Comment on above: Performed By: #### M G, RENAL, URIC #### [facility] [address] [place] [address] Dr. Shayne Roldan Chloride [Moles/Vol] 103 mmol/L Normal 98-107 [facility] Comment on above: Performed By: #### M G, RENAL, URIC #### [facility] [address] [address] [address] Shayne Roldan CO2 [Moles/Vol] 27.8 mmol/L Normal 21.0-32.0 [facility] Comment on above: Performed By: #### M G, RENAL, URIC #### [facility] [address] [place] [address] Dr. Shayne Roldan Creatinine [Mass/Vol] 1.02 mg/dL Normal 0.55-1.02 [facility] Comment on above: Performed By: #### M G, RENAL, URIC #### [facility] [address] [place] [address] Dr. Shayne Roldan EGFR-AF TAJIK >60 Normal >=60 [facility] Comment on above: Performed By: #### M G, RENAL, URIC #### [facility] [address] [place] [address] Dr. Shayne Roldan EGFR-NON AF TAJIK 54 mL/min/1.73m2 Critically low >=60 [facility] Comment on above: Performed By: #### M G, RENAL, URIC #### [facility] [address] [place] [address] Dr. Shayne Roldan Glucose [Mass/Vol] 110 mg/dL Critically high 74-106 T [facility] Comment on above: Performed By: #### M G, RENAL, URIC #### [facility] [address] [place] [address] Dr. Shayne Roldan Phosphate [Mass/Vol] 2.3 mg/dL Critically low 2.6-4.7 [facility] Comment on above: Performed By: #### M G, RENAL, URIC #### [facility] [address] [place] [address] Dr. Shayne Roldan Potassium [Moles/Vol] 3.2 mmol/L Critically low 3.5-5.1 [facility] Comment on above: Performed By: #### M G, RENAL, URIC #### [facility] [address] [place] [address] Dr. Shayne Roldan Sodium [Moles/Vol] 138 mmol/L Normal 136-145 [facility] Comment on above: Performed By: #### M G, RENAL, URIC #### [facility] [address] [place] [address] Dr. Shayne Roldan Urea nitrogen [Mass/Vol] 14.0 mg/dL Normal 7.0-18.0 [facility] Comment on above: Performed By: #### M G, RENAL, URIC #### [facility] [address] [place] [address] Dr. Shayne Roldan PTH INTACTon 08-06-2022 PTH, Intact 40 pg/mL Normal 15-65 [facility] Comment on above: Performed By: #### M G, RENAL, URIC #### [facility] [address] [place] [address] Dr. Shayne Roldan HEMOGRAM AND PLATELon 2021 Hematocrit (Bld) [Volume fraction] 39.8 % Normal 36.0-48.0 [facility] Comment on above: Performed By: #### M G, RENAL, URIC #### [facility] [address] [place] [address] Dr. Shayne Roldan Hemoglobin (Bld) [Mass/Vol] 13.4 g/dL Normal 12.0-16.0 [facility] Comment on above: Performed By: #### M G, RENAL, URIC #### [facility] [address] [place] [address] Dr. Shayne Roldan MCH (RBC) [Entitic mass] 30.5 pg Normal 26.7-34.0 [facility] Comment on above: Performed By: #### M G, RENAL, URIC #### [facility] [address] [place] [address] Dr. Shayne Roldan MCHC (RBC) [Mass/Vol] 33.7 g/dL Normal 29.9-35.2 [facility] Comment on above: Performed By: #### M G, RENAL, URIC #### [facility] [address] [place] [address] Dr. Shayne Roldan MCV (RBC) [Entitic vol] 90.5 fL Normal 81.0-99.0 [facility] Comment on above: Performed By: #### M G, RENAL, URIC #### [facility] [address] [place] [address] Dr. Shayne Roldan PLT 299 103/ul Normal 150-450 [facility] Comment on above: Performed By: #### M Poncho, RENAL, URIC #### [facility] [address] [place] [address] Dr. Shayne Roldan RBC 4.40 106/ul Normal 4.20-5.40 [facility] Comment on above: Performed By: #### M Poncho, RENAL, URIC #### [facility] [address] [place] [address] Dr. Shayne Roldan WBC 8.8 103/ul Normal 4.0-11.0 [facility] Comment on above: Performed By: #### M Poncho, RENAL, URIC #### [facility] [address] [place] [address] Dr. Shayne Roldan MAGNESIUMon 08-05-2022 Magnesium [Mass/Vol] 1.5 mg/dL Critically low 1.8-2.4 [facility] Comment on above: Performed By: #### M Poncho, RENAL, URIC #### [facility] [address] [place] [address] Dr. Shayne Roldan RENAL FUNCTION PANELon 08-05 Albumin [Mass/Vol] 3.5 g/dL Normal 3.4-5.0 [facility] Comment on above: Performed By: #### M G, RENAL, URIC #### [facility] [address] [place] [address] Dr. Shayne Roldan Calcium [Mass/Vol] 8.4 mg/dL Critically low 8.5-10.1 Th [facility] Comment on above: Performed By: #### M G, RENAL, URIC #### [facility] [address] [place] [address] Dr. Shayne Roldan Chloride [Moles/Vol] 101 mmol/L Normal 98-107 [facility] Comment on above: Performed By: #### M G, RENAL, URIC #### [facility] [address] [address] [address] Shayne Roldan CO2 [Moles/Vol] 29.5 mmol/L Normal 21.0-32.0 [facility] Comment on above: Performed By: #### M G, RENAL, URIC #### [facility] [address] [address] [address] Shayne Roldan Creatinine [Mass/Vol] 1.04 mg/dL Critically high 0.55-1.02 [facility] Comment on above: Performed By: #### M G, RENAL, URIC #### [facility] [address] [address] [address] Shayne Roldan EGFR-AF TAJIK >60 Normal >=60 [facility] Comment on above: Performed By: #### M G, RENAL, URIC #### [facility] [address] [address] [address] Shayne Roldan EGFR-NON AF TAJIK 53 mL/min/1.73m2 Critically low >=60 [facility] Comment on above: Performed By: #### M G, RENAL, URIC #### [facility] [address] [address] [address] Shayne Roldan Glucose [Mass/Vol] 92 mg/dL Normal 74-106 [facility] Comment on above: Performed By: #### M G, RENAL, URIC #### [facility] [address] [address] [address] Shayne Roldan Phosphate [Mass/Vol] 2.4 mg/dL Critically low 2.6-4.7 [facility] Comment on above: Performed By: #### M G, RENAL, URIC #### [facility] [address] [address] [address] hSayne Roldan Potassium [Moles/Vol] 2.8 mmol/L Critically low 3.5-5.1 [facility] Comment on above: Performed By: #### M G, RENAL, URIC #### [facility] [address] [address] [address] Shayne Roldan Sodium [Moles/Vol] 137 mmol/L Normal 136-145 [facility] Comment on above: Performed By: #### M G, RENAL, URIC #### [facility] [address] [place] [address] Dr. Shayne Roldan Urea nitrogen [Mass/Vol] 10.0 mg/dL Normal 7.0-18.0 [facility] Comment on above: Performed By: #### M G, RENAL, URIC #### [facility] [address] [place] [address] Dr. Shayne Roldan UA RANDOM W/MICROSCOPICon BACTERIA SMALL Abnormal NONE SEEN [facility] Comment on above: Performed By: #### U AMIC #### [facility] [address] [place] [address] Dr. Shayne Roldan Bilirubin Ql (U) Negative Normal NEGATIVE [facility] Comment on above: Performed By: #### U AMIC #### [facility] [address] [place] [address] Dr. Shayne Roldan CAST NONE SEEN Normal NONE SEEN [facility] Comment on above: Performed By: #### U AMIC #### [facility] [address] [place] [address] Dr. Shayne Roldan Clarity (U) CLEAR Normal CLEAR [facility] Comment on above: Performed By: #### U AMIC #### [facility] [address] [place] [address] Dr. Shayne Roldan Color (U) LT. YELLOW Normal YELLOW [facility] Comment on above: Performed By: #### U AMIC #### [facility] [address] [place] [address] Dr. Shayne Roldan Crystals LM Nom (Urine sed) NONE SEEN Normal NONE SEEN [facility] Comment on above: Performed By: #### U AMIC #### [facility] [address] [place] [address] Dr. Shayne Roldan Epithelial cells LM Ql (Urine sed) FEW Abnormal NONE SEEN /RARE [facility] Comment on above: Performed By: #### U AMIC #### [facility] [address] [place] [address] Dr. Shayne Roldan Glucose Ql (U) Negative Normal NEGATIVE [facility] Comment on above: Performed By: #### U AMIC #### [facility] [address] [address] [address] Shayne Roldan Hemoglobin Ql (U) Negative Normal NEGATIVE [facility] Comment on above: Performed By: #### U AMIC #### [facility] [address] [address] [address] Shayne Roldan Ketones Ql (U) Negative Normal NEGATIVE [facility] Comment on above: Performed By: #### U AMIC #### [facility] [address] [address] [address] Shayne Roldan LEUKOCYTES TRACE Abnormal NEGATIVE [facility] Comment on above: Performed By: #### U AMIC #### [facility] [address] [place] [address] Dr. Shayne Roldan MUCOUS NONE SEEN Normal NONE SEEN [facility] Comment on above: Performed By: #### U AMIC #### [facility] [address] [place] [address] Dr. Shayne Roldan Nitrite Ql (U) Negative Normal NEGATIVE [facility] Comment on above: Performed By: #### U AMIC #### [facility] [address] [address] [address] Shayne Roldan pH (U) 6.0 [pH] Normal 5-9 [facility] Comment on above: Performed By: #### U AMIC #### [facility] [address] [address] [address] Shayne Roldan RBC NONE SEEN Abnormal 0-2 [facility] Comment on above: Performed By: #### U AMIC #### [facility] [address] [address] [address] Shayne Roldan SPEC GRAVITY <=1.005 Abnormal 1.005-<=1.025 [facility] Comment on above: Performed By: #### U AMIC #### [facility] [address] [place] [address] Dr. Shayne Roldan UA PROTEIN Negative Normal NEGATIVE/ TRACE [facility] Comment on above: Performed By: #### U AMIC #### [facility] [address] [place] [address] Dr. Shayne Roldan Urobilinogen Qn (U) 0.2 {Rogelio'U}/dL Normal 0.2 - 1. 0 [facility] Comment on above: Performed By: #### U AMIC #### [facility] [address] [place] [address] Dr. Shayne Roldan WBC 5-10 Abnormal NONE SEEN [facility] Comment on above: Performed By: #### U AMIC #### [facility] [address] [place] [address] Dr. Shayne Roldan URIC ACID SERUMon 08-05-2022 Urate [Mass/Vol] 6.5 mg/dL Critically high 2.6-6.0 [facility] Comment on above: Performed By: #### M G, RENAL, URIC #### [facility] [address] [place] [address] Dr. Shayne Roldan URINE T PROTEIN CREAT RATIOo n 08-05-2022 Protein (U) [Mass/Vol] 4.8 mg/dL Normal <=12.0 [facility] Comment on above: Performed By: #### U RTPCR #### [facility] [address] [place] [address] Dr. Shayne Roldan UR PROT CREAT RAT 0.09 Normal [facility] Comment on above: Performed By: #### U RTPCR #### [facility] [address] [place] [address] Dr. Shayne Roldan URINE CREAT 52.65 mg/dL Normal 20.00-300.00 [facility] Comment on above: Performed By: #### U RTPCR #### [facility] [address] [place] [address] Dr. Shayne Roldan VITAMIN D 25 OHon 08-05-2022 VIT D 25-OH 38.9 ng/mL Normal [facility] Comment on above: Performed By: #### M G, RENAL, URIC #### [facility] [address] [place] [address] Dr. Shayne Roldan VIT D RANGES SEE BELOW Normal [facility] Comment on above: Result Comment: <20 ng/mL Vit D deficient 20 - <30 ng/mL Vit D insufficient 30 - 100 ng/mL Vit D sufficient >100 ng/mL Potential Toxicity Performed By: #### M G, RENAL, URIC #### [facility] [address] [place], [place] [address] Dr. Shayne Roldan IMMUNOGLOBULINS IGA/IGM/IGG/ IGE QUANTITAon 07-12-2022 Immunoglobulin A, Qn, Serum 295 mg/dL Normal 87-352 [facility] Comment on above: Result Comment: Perf ormed at: CB Performed By: #### M G, RENAL, URIC #### [facility] [address] [address] [address] Shayne Roldan Immunoglobulin E, Total 32 IU/mL Normal 6-495 [facility] Comment on above: Result Comment: Perf ormed at: BN Performed By: #### M G, RENAL, URIC #### [facility] [address] [address] [address] Shayne Roldan Immunoglobulin G, Qn, Serum 729 mg/dL Normal 586-1602 [facility] Comment on above: Result Comment: Perf ormed at: CB Performed By: #### M G, RENAL, URIC #### [facility] [address] [address] [address] Shayne Roldan Immunoglobulin M, Qn, Serum 75 mg/dL Normal 26-217 [facility] Comment on above: Result Comment: Perf ormed at: CB Performed By: #### M G, RENAL, URIC #### [facility] [address] [address] [address] Shayne Roldan Abstracton 07-08-2022 Abstract [id number] Nell Champion 1955 F Date Provider Department Center 07/08/2022 JOHANNA MEDINA [facility] Family History Problem Relation Age of Onset Heart failure Mother Heart disease Father Family Status - Relation Status Age at Mother Father Normal [facility] CBC AUTO DIFFon 07-05-2022 BASO # 0.1 103/ul Normal 0.0-0.1 [facility] Comment on above: Performed By: #### M G, RENAL, URIC #### [facility] [address] [address] [address] Shayne Roldan Basophils/100 WBC (Bld) 0.7 % Normal 0.2-2.0 [facility] Comment on above: Performed By: #### M G, RENAL, URIC #### [facility] [address] [place] [address] Dr. Shayne Roldan EO # 0.4 103/ul Normal 0.0-0.7 [facility] Comment on above: Performed By: #### M G, RENAL, URIC #### [facility] [address] [place] [address] Dr. Shayne Roldan Eosinophils/100 WBC (Bld) 4.4 % Normal 0.9-7.0 [facility] Comment on above: Performed By: #### M G, RENAL, URIC #### [facility] [address] [place] [address] Dr. Shayne Roldan Erythrocyte distribution width (RBC) [Ratio] 12.6 % Normal 11.0-15.0 [facility] Comment on above: Performed By: #### M G, RENAL, URIC #### [facility] [address] [place] [address] Dr. Shayne Roldan Hematocrit (Bld) [Volume fraction] 40.2 % Normal 36.0-48.0 [facility] Comment on above: Performed By: #### M G, RENAL, URIC #### [facility] [address] [place] [address] Dr. Shayne Roldan Hemoglobin (Bld) [Mass/Vol] 13.6 g/dL Normal 12.0-16.0 [facility] Comment on above: Performed By: #### M G, RENAL, URIC #### [facility] [address] [place] [address] Dr. Shayne Roldan IG # 0.07 10e3/ul Critically high 0.00-0.03 [facility] Comment on above: Performed By: #### M G, RENAL, URIC #### [facility] [address] [address] [address] Shayne Roldan IG % 0.8 % Critically high 0.0-0.5 [facility] Comment on above: Performed By: #### M G, RENAL, URIC #### [facility] [address] [place] [address] Dr. Shayne Roldan LYMPH # 2.3 103/ul Normal 1.2-3.8 [facility] Comment on above: Performed By: #### M G, RENAL, URIC #### [facility] [address] [place] [address] Dr. Shayne Roldan Lymphocytes/100 WBC (Bld) 24.7 % Normal 20.5-60.0 [facility] Comment on above: Performed By: #### M G, RENAL, URIC #### [facility] [address] [place] [address] Dr. Shayne Roldan MANUAL DIFF REQ NO Normal [facility] Comment on above: Performed By: #### M G, RENAL, URIC #### [facility] [address] [place] [address] Dr. Shayne Roldan MCH (RBC) [Entitic mass] 30.7 pg Normal 26.7-34.0 [facility] Comment on above: Performed By: #### M G, RENAL, URIC #### [facility] [address] [place] [address] Dr. Shayne Roldan MCHC (RBC) [Mass/Vol] 33.8 g/dL Normal 29.9-35.2 [facility] Comment on above: Performed By: #### M G, RENAL, URIC #### [facility] [address] [place] [address] Dr. Shayne Roldan MCV (RBC) [Entitic vol] 90.7 fL Normal 81.0-99.0 [facility] Comment on above: Performed By: #### M G, RENAL, URIC #### [facility] [address] [place] [address] Dr. Shayne Roldan MONO # 0.7 103/ul Normal 0.3-0.8 [facility] Comment on above: Performed By: #### M G, RENAL, URIC #### [facility] [address] [address] [address] Shayne Roldan Monocytes/100 WBC (Bld) 7.7 % Normal 1.7-12.0 [facility] Comment on above: Performed By: #### M G, RENAL, URIC #### [facility] [address] [address] [address] Shayne Roldan NEUT # 5.7 103/ul Normal 1.4-6.5 [facility] Comment on above: Performed By: #### M G, RENAL, URIC #### [facility] [address] [place] [address] Dr. Shayne Roldan Neutrophils/100 WBC (Bld) 61.7 % Normal 43.0-75.0 [facility] Comment on above: Performed By: #### M G, RENAL, URIC #### [facility] [address] [place] [address] Dr. Shayne Roldan Platelet mean volume (Bld) [Entitic vol] 8.8 fL Critically low 9.5-13.5 [facility] Comment on above: Performed By: #### M G, RENAL, URIC #### [facility] [address] [place] [address] Dr. Shayne Roldan PLT 279 103/ul Normal 150-450 [facility] Comment on above: Performed By: #### M G, RENAL, URIC #### [facility] [address] [place] [address] Dr. Shayne Roldan RBC 4.43 106/ul Normal 4.20-5.40 [facility] Comment on above: Performed By: #### M G, RENAL, URIC #### [facility] [address] [place] [address] Dr. Shayne Roldan WBC 9.1 103/ul Normal 4.0-11.0 [facility] Comment on above: Performed By: #### M G, RENAL, URIC #### [facility] [address] [place] [address] Dr. Shayne Roldan [facility] SARS-CoV-2 (COVID-19) RNA KAYLEE+probe Ql (Unsp spec) Not detected Normal NOT DETECTED [facility] Comment on above: Result Comment: This test is not yet approved or cleared by the [place] FDA. When there are no FDA-approved or cleared tests available, and other criteria are met, FDA can make tests available under an emergency access mechanism called an Emergency Use Authorization (EUA). The EUA for this test is supported by the [employer] of Health and Human Service's (HHS's) declaration [...] By: #### M G, RENAL, URIC #### [facility] [address] [address] [address] Shayne Roldan XR CHEST 2 Von [...] NARDA LONDONO Date: 2022-06-08 19:58 Normal [facility] Covid-19 PCR ([facility])on SARS-CoV-2 (COVID-19) RNA KAYLEE+probe Ql (Unsp spec) Not detected Normal NOT DETECTED [facility] Comment on above: Result Comment: This test is not yet approved or cleared by the [place] FDA. When there are no FDA-approved or cleared tests available, and other criteria are met, FDA can make tests available under an emergency access mechanism called an Emergency Use Authorization (EUA). The EUA for this test is supported by the [place] of Health and Human Service's (HHS's) declaration [...] consistent with SARS-CoV-2. Performed By: #### C [facility] #### [facility] [address] [place] [address] Dr. Shayne MADRIGAL AXIALmargarita 03-01-2022 DEXA AXIAL [facility] Department of Radiology [address] [place] [id number] Patient Name: DIANA CHAMPION : 1955 [...] characteristics. Electronically signed: Luzma Fernandez. Transcribed by: [email or web address], User Resident: Electronically Signed by: LUZMA FERNANDEZ @ 03/02/2022 01:07 PM Normal [facility] SCOLIOSIS 2 [facility] 02-24-2022 SCOLIOSIS 2 [facility] Department of Radiology [address] [place] [address] Patient Name: DIANA CHAMPION : [...] spine. Electronically signed: Hugo Lynn. Transcribed by: [email or web address], User Resident: Electronically Signed by: HUGO LYNN @ 02/26/2022 11:07 AM Normal [facility] Comment on above: Order Comment: Views (X-RAY, SCOLIOSIS): PA, Lateral evaluate CT LUMBAR SPINE W CONTRASTon 01-24-2022 CT LUMBAR SPINE W CONTRAST [facility] Department of Radiology [address] [place] [id number] Patient Name: DIANA CHAMPION : 1955 Sex: F Age: Race: White Pt. Location: 84 Patient Status: D Ordered Date: 01/09/2022 9:00:00 AM Completed Date: 01/24/2022 03:26 PM Requesting Provider: JOO LINN Attending Provider: JOO LINN Report Copy To: UNKNOWN, PHYSICIAN Signs & Symptoms: M54.16 Radiculopathy, lumbar region I10 History: [place] Comments: , CT MYELOGRAM>PAPER WORK IN CHART [...] L1-2. Electronically signed: Gaurang Lawrence. Transcribed by: [email or web address], User Resident: Electronically Signed by: GAURANG LAWRENCE @ 01/26/2022 08:58 AM Normal [facility] Comment on above: Order Comment: , CT MYELOGRAM>PAPER WORK IN CHART LUMBAR MYELOGRAMon 2 LUMBAR MYELOGRAM [facility] Department of Radiology [address] [place] [id number] Patient Name: DIANA CHAMPION : 1955 Sex: F Age: Race: White Pt. Location: 84 Patient Status: O Ordered Date: 01/09/2022 9:00:00 AM Completed Date: 01/24/2022 02:37 PM Requesting Provider: JOO LINN Attending Provider: JOO LINN Report Copy To: UNKNOWN, PHYSICIAN Signs & Symptoms: M54.16 Radiculopathy, lumbar region I10 History: Jessica Is patient on thinners? 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 Consent was obtained. Timeout: [place] protocol timeout verification performed. PROCEDURE: Estimated blood [...] report. Electronically signed: Greg Marlow. Transcribed by: [email or web address], User Resident: DEBBIE JI Electronically Signed by: GREG MARLOW @ 01/24/2022 04:07 PM I personally read this/these film(s) with this resident Normal [facility] Comment on above: Order Comment: , CT MYELOGRAM> PAPER WORK SCANNED IN CHART , CT MYELOGRAM> PAPER WORK SCANNED IN CHART , , , Ordering Provider - JOO LINN MD , HIP LEFT 1 OR 2 VWS WITH PEL VISon 01-06-2022 HIP LEFT 1 OR 2 VWS WITH PELVIS [facility] Department of Radiology [address] [place] [id number] Patient Name: DIANA CHAMPION : 1955 Sex: F Age: Race: White Pt. Location: 84 Patient Status: D Ordered Date: 12/21/2021 10:45:00 AM Completed Date: 01/06/2022 01:24 PM Requesting Provider: JOO LINN Attending Provider: JOO LINN Report Copy To: Signs & Symptoms: Z96.642 Presence of left artificial hip joint I10 History: [place] Comments: Evaluate Exam: HIP LEFT 1 OR 2 VWS WITH PELVIS HIP LEFT 1 OR 2 VWS WITH PELVIS HISTORY: Hip replacement, follow-up. COMPARISON: None. IMPRESSION: 1. Redemonstrated left hip prosthesis without visible complication. 2. Advanced right hip arthritis without significant change with advanced joint space narrowing. Unchanged lumbosacral fusion hardware. Electronically signed: Joe Matthew. Transcribed by: [email or web address], User Resident: Electronically Signed by: JOE MATTHEW @ 01/09/2022 04:45 PM Normal [facility] Comment on above: Order Comment: Evalu ate Vital Signs Date Time Vital Sign Value Performing Clinician Facility 03-14-2024 10:30-0400 Body height 165.1 cm Steph Collier Work Phone: [facility] 03-14-2024 10:30-0400 Body mass index (BMI) [Ratio] 39 kg/m2 Steph Collier Work Phone: [facility] 03-14-2024 10:30-040 Body temperature 97.4 [degF] Steph Collier Work Phone: [facility] 03-14-2024 10:30-0400 Body weight 106.36 kg Steph Collier Work Phone: [facility] 03-14-2024 10:30-0400 Diastolic blood pressure 80 mm[Hg] Steph Collier Work Phone: [facility] 03-14-2024 10:30-0400 Heart rate 77 /min Steph Collier Work Phone: [facility] 03-14-2024 10:30-0400 Inhaled oxygen flow rate 3 L/min Steph Collier Work Phone: [facility] 03-14-2024 10:30-0400 Respiratory rate 20 /min Steph Collier Work Phone: [facility] 03-14-2024 10:30-0400 SaO2% (BldA) [Mass fraction] 92 % Steph Collier Work Phone: [facility] 03-14-2024 10:30-0400 Systolic blood pressure 120 mm[Hg] Steph Collier Work Phone: [facility] 08-17-2023 09:20-0400 Body height 165.1 cm Herberth Joana Other [facility] Other 08-17-2023 09:20-0400 Body mass index (BMI) [Ratio] 38.1 kg/m2 Herberth Joana Other [facility] Other 08-17-2023 09:20-0400 Body temperature 98.8 [degF] Herberth Joana Other [facility] Other 08-17-2023 09:20-0400 Body weight 103.87 kg Herberth Joana Other [facility] Other 08-17-2023 09:20-0400 Diastolic blood pressure 85 mm[Hg] Herberth Joana Other [facility] Other 08-17-2023 09:20-0400 Respiratory rate 18 /min Herberth Joana Other [facility] Other 08-17-2023 09:20-0400 SaO2% (BldA) [Mass fraction] 94 % Herberth Joana Other [facility] Other 08-17-2023 09:20-0400 Systolic blood pressure 151 mm[Hg] Herberth Joana Other [facility] Other 03-02-2023 10:00-0400 Body height 165.1 cm Herberth Joana Other [facility] Other 03-02-2023 10:00-0400 Body mass index (BMI) [Ratio] 37.29 kg/m2 Herberth Joana Other [facility] Other 03-02-2023 10:00-0400 Body temperature 98.9 [degF] Herberth Joana Other [facility] Other 03-02-2023 10:00-0400 Body weight 101.65 kg Herberth Joana Other [facility] Other 03-02-2023 10:00-0400 Diastolic blood pressure 76 mm[Hg] Herberth Joana Other [facility] Other 03-02-2023 10:00-0400 Respiratory rate 20 /min Herberth Joana Other [facility] Other 03-02-2023 10:00-0400 SaO2% (BldA) [Mass fraction] 96 % Herberth Joana Other [facility] Other 03-02-2023 10:00-0400 Systolic blood pressure 136 mm[Hg] Herberth Joana Other [facility] Other 12-08-2022 09:30-0500 Diastolic blood pressure 59 mm[Hg] MD Shaikh Ohara Work Phone: [facility] 12-08-2022 09:30-0500 Heart rate 55 /min MD Shaikh Ohara Work Phone: [facility] 12-08-2022 09:30-0500 Respiratory rate 16 /min MD Shaikh Ohara Work Phone: [facility] 12-08-2022 09:30-0500 SaO2% (BldA) [Mass fraction] 96 % MD Shaikh Ohara Work Phone: [facility] 12-08-2022 09:30-0500 Systolic blood pressure 112 mm[Hg] MD Shaikh Ohara Work Phone: [facility] 12-08-2022 06:54-0500 Body height 162.56 cm MD Shaikh Ohara Work Phone: [facility] 12-08-2022 06:54-0500 Body temperature 98.2 [degF] MD Shaikh Ohara Work Phone: [facility] 12-08-2022 06:54-0500 Body weight 104.32 kg MD Shaikh Ohara Work Phone: [facility] 08-09-2022 11:00-0400 Body height 165.1 cm Herberth Joana Other [facility] Other 08-09-2022 11:00-0400 Body mass index (BMI) [Ratio] 37.87 kg/m2 Herberth Joana Other [facility] Other 08-09-2022 11:00-0400 Body temperature 97.2 [degF] Herberth Joana Other [facility] Other 08-09-2022 11:00-0400 Body weight 103.24 kg Herberth Joana Other [facility] Other 08-09-2022 11:00-0400 Diastolic blood pressure 88 mm[Hg] Herberth Joana Other [facility] Other 08-09-2022 11:00-0400 Respiratory rate 20 /min Herberth Joana Other [facility] Other 08-09-2022 11:00-0400 SaO2% (BldA) [Mass fraction] 95 % Herberth Joana Other [facility] Other 08-09-2022 11:00-0400 Systolic blood pressure 133 mm[Hg] Herberth Joana Other [facility] Other 11-17-2021 10:40-0500 Body height 165.1 cm Herberth Joana Other [facility] Other 11-17-2021 10:40-0500 Body mass index (BMI) [Ratio] 37.97 kg/m2 Herberth Joana Other [facility] Other 11-17-2021 10:40-0500 Body temperature 97.8 [degF] Herberth Joana Other [facility] Other 11-17-2021 10:40-0500 Body weight 103.51 kg Herberth Joana Other [facility] Other 11-17-2021 10:40-0500 Diastolic blood pressure 70 mm[Hg] Herberth Joana Other [facility] Other 11-17-2021 10:40-0500 Respiratory rate 18 /min Herberth Joana Other [facility] Other 11-17-2021 10:40-0500 SaO2% (BldA) [Mass fraction] 94 % Herberth Joana Other [facility] Other 11-17-2021 10:40-0500 Systolic blood pressure 130 mm[Hg] Herberth Joana Other [facility] Other 08-30-2021 13:15-0400 Body height 165.1 cm Rena Ginty Other [facility] Other 08-30-2021 13:15-0400 Body mass index (BMI) [Ratio] 36.61 kg/m2 Rena Ginty Other [facility] Other 08-30-2021 13:15-0400 Body temperature 98.7 [degF] Rena Ginty Other [facility] Other 08-30-2021 13:15-0400 Body weight 99.79 kg Rena Ginty Other [facility] Other 08-30-2021 13:15-0400 SaO2% (BldA) [Mass fraction] 90 % Rena Ginty Other [facility] Other Encounters Encounter Date Encounter Type Care Provider Facility Start: 04-03-2024 End: 04-03-2024 ambulatory SAUNDERS FAWWAD Not Available Start: 03-27-2024 End: 03-27-2024 ambulatory SAUNDERS FAWWAD Not Available Start: 03-14-2024 End: 03-14-2024 ambulatory Steph Galindo Work Phone: [facility] Work Phone: Start: 03-14-2024 End: 03-14-2024 Patient encounter procedure Steph Collier Work Phone: [facility] Work Phone: Start: 03-06-2024 Non-patient / Non-visit Steph Collier Work Phone: [facility] Work Phone: Start: 02-26-2024 End: [...] Facility: [facility] Start: 10-04-2023 End: 10-04-2023 ambulatory LEV Not Available Start: 09-07-2023 End: 09-07-2023 ambulatory Herberth Joana Other [facility] Other Start: 09-07-2023 Telephone encounter Herberth Joana [facility] Start: 08-28-2023 End: 08-28-2023 ambulatory Herberth Joana Other [facility] Other Start: 08-28-2023 Telephone encounter Herberth Joana [facility] Start: 08-21-2023 End: 08-22-2023 ambulatory Jayshree Vargas MD Facility: [facility] Start: 08-17-2023 End: 08-17-2023 ambulatory Herberth Joana Other [facility] Other Start: 08-17-2023 Office outpatient visit 25 minutes Herberth Joana [facility] [place] Start: 05-08-2023 End: 05-08-2023 ambulatory AB [facility] Start: 04-04-2023 End: 04-04-2023 ambulatory SAUNDERS Dimitry LEV Facility:[facility] Start: 03-24-2023 End: 03-25-[address] STEPH GRANADOS Facility:[facility] Start: 03-23-2023 ambulatory JOO LINN [facility] Start: 03-02-2023 End: 03-02-2023 ambulatory Herberth Joana Other [facility] Other Start: 03-02-2023 Office outpatient visit 25 minutes Herberth Joana [facility] Start: 02-25-2023 End: 02-26-2023 ambulatory HERBERTH JOANA Facility:[facility] Start: 02-22-2023 End: 02-23-2023 ambulatory BO LAMIN . Facility:[facility] Start: 12-15-2022 End: 12-16-[address] JACK HALL . Facility:[facility] Start: 12-08-2022 End: 12-08-2022 ambulatory Shaikh Lev Facility:[facility] Start: 12-08-2022 End: 12-08-2022 Admission to same day surgery center MD Shaikh Ohara Work Phone: [facility] Work Phone: Start: 12-08-2022 End: 12-08-2022 ambulatory MD Shaikh Ohara Work Phone: [facility] Work Phone: Start: 11-11-2022 End: 11-11-[address] JACK HALL . Facility:[facility] Start: 11-09-2022 End: 11-09-2022 ambulatory Azkatherine Bakhous Other [facility] Other Start: 11-09-2022 Telephone encounter Azkatherine Ruelashous [facility] Start: 08-19-2022 End: 08-20-2022 ambulatory HERBERTH JOANA Facility: Start: 08-09-2022 End: 08-09-2022 ambulatory Herberth Joana Other [facility] Other Start: 08-09-2022 Office outpatient visit 10 minutes Herberth Joana [facility] Start: 08-09-2022 Telephone encounter Herberth Joana [facility] Start: 08-05-2022 Telephone encounter Herberth Joana [facility] Start: 08-05-2022 End: 08-06-2022 ambulatory HERBERTH JOANA [facility] Other Start: 07-08-2022 End: 07-08-2022 ambulatory Gato Domingo Other [facility] Other Start: 07-08-2022 Telephone encounter Gato Arsenio ck [facility] Start: 07-05-2022 End: 07-06-2022 ambulatory SHAIKH Dimitry FAJavonWAD Facility:[facility] Start: 06-08-2022 End: 06-09-2022 ambulatory SAUNDERS H FAWWAD Facility:[facility] Start: 06-07-2022 End: 06-07-2022 ambulatory SAUNDERS H FAWWAD Facility:[facility] Start: 01-24-2022 End: 01-25-2022 ambulatory PHYSICIAN UNKNOWN Facility:[facility] Start: 11-17-2021 End: 11-17-2021 ambulatory Herberth Joana Other [facility] Other Start: 11-17-2021 Office outpatient visit 15 minutes Herberth Joana [facility] Start: 08-30-2021 Office outpatient visit 15 minutes Rena Ginty [facility] Start: 09-11-2020 End: 09-11-2020 Chart abstracting Miguelito Buck Work Phone: Hematology/Oncology Start: 09-11-2020 End: 09-11-2020 Patient encounter procedure External Provider [facility] Start: 09-11-2020 Results Only External Provider Exter nal[facility] Start: 09-30-2019 End: 09-30-2019 Patient encounter procedure [facility] [place] Start: 07-07-2017 End: 07-07-2017 Admission to day surgery [facility] Start: 05-24-2004 Evaluation and management of inpatient [facility] Start: 04-26-2004 Evaluation and management of inpatient [facility] [place] Procedures Date Procedure Procedure Detail Performing Clinician Start: 12-08-2022 Colonoscopy MD Shaikh Ohara Work Phone: Start: 09-11-2020 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 Paper Stacker al Provider Start: 09-11-2020 EXTERNAL LAB External P rovider Start: 09-11-2020 EXTERNAL PROCEDURE Exte rnal Provider Start: 09-30-2019 Ultrasonography of b ilateral kidneys Steph Collier Plan of Treatment Date Care Activity Detail Author Start: 12-08-2022 [facility] Start: 07-07-2020 Influenza vaccination INFLUENZA (#1) [facility] Start: 2006 SHINGRIX VACCINE (1 of 2) SHINGRIX VACCINE (1 of 2) [facility] Start: 2006 Tuberculosis screening COLORECTAL CANCER SCREENING,SEE MODIFIER [facility] Start: 2001 DIABETES SCREEN DIABETES SCREEN [facility] Start: 2001 LIPID SCREEN LIPID SCREEN [facility] Start: 1996 Mammography MAMMOGRAM [facility] Start: 1986 HPV TESTING HPV TESTING [facility] Start: 1977 PAP TESTING PAP TESTING [facility] Start: 1975 Urine microalbumin profile DTAP,TDAP,TD (1 - Tdap) [facility] Start: 1974 HEPATITIS C SCREENING HEPATITIS C SCREENING [facility] Start: 1974 HIV SCREENING HIV SCREENING [facility] Patient Education Colon Polypect shahram Hemorrhoids (DC) Diverticulosis (DC) [facility] Immun[facility] Immunization Date Immunization Notes Care Provider Henrietta charles 07-18-2018 Depo-Medrol 40 mg Rena Gint y Other [facility] Other 01-31-2018 Depo-Medrol 40 mg Rena Gint y Other [facility] Other 08-09-2017 influenza virus vaccine, unspecified formulation Steph Collier Work Phone: [facility] 08-09-2017 influenza, seasonal, injectable, preservative free Rena Ginty Other [facility] Other Payers Date Payer Category Payer Unknown 2022 Self-pay [id number] 2021 Medicare [id number] 2020 Medicaid [id number] [facility] MEDICAID [id number] 2019-Present Medicaid [id number] 2016 Medicare MEDICARE MEDICAR E A AND B [id number] 2016-Present [place] [id number] 1959 Unknown [id number] 1955 Unknown [id number] 2.16.840.1.812717.3.579.2.647 1955 Unknown [id number] 2.16.840.1.710985.3.579.2.593 1955 Unknown [id number] 2.16.840.1.321433.3.579.2.593 1955 Unknown [id number] 2.16.840.1.280522.3.579.2.593 1955 Unknown [id number] 2.16.840.1.405192.3.579.2.593 1955 Unknown [id number] 2.16.840.1.726247.3.579.2.593 1955 Unknown [id number] 2.16.840.1.535548.3.579.2.593 1955 Unknown [id number] 2.16.840.1.943804.3.579.2.593 1955 Unknown [id number] 2.16.840.1.722006.3.579.2.593 1955 Unknown [id number] 2.16.840.1.827567.3.579.2.593 1955 Unknown [id number] 2.16.840.1.976985.3.579.2.593 1955 Unknown [id number] 2.16.840.1.137755.3.579.2.593 1955 Unknown [id number] 2.16.840.1.160715.3.579.2.196 1955 Unknown [id number] 2.16.840.1.122423.3.579.2.196 1955 Unknown [id number] 2.16.840.1.678654.3.579.2.196 1955 Unknown [id number] 2.16.840.1.330548.3.579.2.196 1955 Unknown [id number] 2.16840.1.385981.3.579.2.196 1955 Unknown [id number] 2.16.840.1.992696.3.579.2.125 1955 Unknown [id number] 2.16.840.1.764130.3.579.2.125 1955 Unknown [id number] 2.16.840.1.935838.3.579.2.1259 1955 Unknown [id number] 2.16.840.1.318730.3.579.2.125 1955 Unknown [id number] 2.16.840.1.260356.3.579.2.125 1955 Unknown [id number] 2.16.840.1.826741.3.579.2.125 1955 Unknown [id number] 2.16.840.1.419301.3.579.2.125 1955 Unknown [id number] 2.16.840.1.974619.3.579.2.125 1955 Unknown [id number] 2.16.840.1.094461.3.579.2.1259 Medicare [id number] Unknown HCAP/HFA/FAP Active [id number] Unknown [id number] 2.16.840.1.527282.3.579.2.531 Social History Date Type Detail Facility Tobacco smoking stat us [facility] Unknown if ever smoked [facility] Start: 1955 Sex Assigned At Female F [facility] Start: 09-11-2020 End: 03-14-2024 Tobacco smoking status NHIS Never smoker [facility] Start: 09-11-2020 Tobacco use and exposure Never used [facility] Start: 09-11-2020 Alcohol intake Lifetime non-d my (finding) [facility] Start: 09-11-2020 History SDOH Alcohol Frequency 1 [facility] Sex Assigned At Not on file [facility] Sex Assigned At Sex Assigned At Bir th [facility] Other Goals Date Patient Goal Desired Activity /State Clinical Notes 08-30-2021 to 09-07-2023 Note Date & Type Note Facility 09-07-2023 Evaluation note Encounter Date Diagnosis Assessment Notes Sep, Hypomagnesemia (ICD-10 - E83.42) [facility] Other 10-23-2023 Evaluation note* Encounter Date Diagnosis Assessment Notes Treatment Notes Treatment Clinical Notes Aug, Nico hy kid w cr kid I-IV (ICD-10 - I12.9) [facility] Other 10-12-2023 Evaluation note* Encounter Date Diagnosis [...] PPI induced GI losses. Continue oral Magnesium [facility] Chief Complaint: Patient here for 1 year follow up CAD and hypertension. She was recently discharged from [facility] for Covid-19. She says hydrochlorothiazide was [...] breath since then. She has seen her bakery products checker. Her chest pain is noncardiac. She has [...] 325 mg by mouth., Disp: , Rfl: dzzntqbqaut-rexqrmeus-srsumuwx 100-62.5-25 mcg blister with device, , Disp: [...] CTAB, no increased eff (more content not included)...[facility]05-19-2023 NotePROCEDURE: XR HIP RT 2 3V W PELVIS HISTORY: Pain in right hip joint , chronic COMPARISON: XR L-spine 02/26/2019, XR left hip with pelvis 03/11/2017 FINDINGS: BONES:Complete loss of the right hip joint space with ykgw-uc-rpaf articulation, subchondral sclerosis and cysts, and large periarticular degenerative osteophytes. No fracture or dislocation. Left hip replacement. Mechanical fusion of L5-S1 and moderate dextroscoliosis of lumbar spine. SOFT TISSUES:No visible soft tissue swelling. EFFUSION:None visible. OTHER: Negative. IMPRESSION: 1. Marked degenerative joint disease of the right hip; progressed since prior study. 2. Stable surgical changes. Electronically authenticated by: STEPH GRANADOS Date: 2023-03-24 12:55[facility] NoteSubjective 03/23/23 Diana Champion is a 67 [...] LIGATION Past Medical History: Diagnosis Date Cancer [facility] Hypertension Objective General: Body mass index [...] from the patient's PCP as well as bakery products checker for a right anterior total hip arthroplasty. [...] may be an additional personal documentation from me.[facility]04-27-2023 Evaluation note* Encounter Date Diagnosis [...] PPI induced GI losses. Continue oral Magnesium [facility] Other [facility]* Encounter Date Diagnosis Assessment Notes Treatment Notes Treatment Clinical Notes Nov, Hypokalemia (ICD-10 - E87.6) Nov, Hypomagnesemia (ICD-10 - E83.42) [facility] Other 10-04-2022 Evaluation note* Encounter Date Diagnosis [...] office does not accept her new insurance. [facility] Other 09-02-2022 Evaluation note* Encounter Date Diagnosis Assessment Notes Treatment Notes Treatment Clinical Notes Jul, History of colon cancer (ICD-10 - Z85.038) [facility] Other 01-12-2022 Evaluation note* Encounter Date Diagnosis [...] has persistently high uric acid or gout. 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 I have prescribed oral potassium. [facility] Other 10-25-2021 Evaluation note* Encounter Date Diagnosis [...] Patient care instructions given in writting by [facility] Care At Home document [facility] Other Evaluation noteNo InformationNort [employer] Other Evaluation note* Diagnosis Onset Date Resolution Status History of colon cancer [facility] Work Phone: Evaluation note* Diagnosis Onset Date Resolution Status Hypokalemia acute Hypomagnesemia acute Stage 3 chronic kidney disease acute COVID noneactive Pneumonia noneactive [facility] Work Phone: Hisotso general Narrative - Reported* Type Description Date [...] 16 Surgical History (R) TKA - DR AMA 8 Surgical History 1 INCH OF BONE OFF OF RIGHT BALTA T 2014 Surgical History LEFT HIP RESVISION 03/2020 Hospitalization History see above 2003,198 7 Hospitalization History 1 week during chemo 2003 Hospitalization History ISSUE WITH HIP C OMING OUT AND NEEDING TO PUT IT BACK IN 08/2019 Hospitalization History HIP REVISION 03/2020 [facility] Other Hisvljv general Narrative - Reported* Type Description Date [...] 16 Surgical History (R) TKA - DR STEPANIC 8 Surgical History 1 INCH OF BONE OFF OF RIGHT BALTA T 2014 Surgical History LEFT HIP RESVISION 03/2020 Hospitalization History see above 2003,198 7 Hospitalization History 1 week during chemo 2003 Hospitalization History ISSUE WITH HIP C OMING OUT AND NEEDING TO PUT IT BACK IN 08/2019 Hospitalization History HIP REVISION 03/2020 Hospitalization History COVID X 2 WEEKS 04/2023 [facility] Other Hospital Discharge instructions Additional Instructions DISCHARGE [...] if you have any problems. -Office number [phone] Work Phone: Advance Directives No Advanced [...] any alcohol or drug abuse patient.[facility] the event this information is protected by the Federal Confidentiality of Alcohol and Drug Abuse Patient Records regulations: The Federal rules restrict any use of the information to criminally investigate or prosecute any alcohol or drug abuse patient.[facility] the event this information is protected by the Federal Confidentiality of Alcohol and Drug Abuse Patient Records regulations: The Federal rules restrict any use of the information to criminally investigate or prosecute any alcohol or drug abuse patient.[facility] the event this information is protected by the Federal Confidentiality of Alcohol and Drug Abuse Patient Records regulations: The Federal rules restrict any use of the information to criminally investigate or prosecute any alcohol or drug abuse patient.[facility] INFORMATION SOURCE (unrecogn ized section and content) DATE CREATED AUTHOR 03/03/2022 [facility] DATE CREATED AUTHOR AUTHOR'S ORGANIZ ATION 04/17/2023 [facility] [facility] DATE CREATED AUTHOR AUTHOR'S ORGANIZ ATION 05/08/2023 [facility] DATE CREATED AUTHOR AUTHOR'S ORGANIZ ATION 06/07/2023 [facility] DATE CREATED AUTHOR AUTHOR'S ORGANIZ ATION 02/28/2024 [facility] DATE CREATED AUTHOR AUTHOR'S ORGANIZ ATION 04/04/2024 [facility] EPIC REASON FOR VISIT [...] BE BASED ON THE PRIMARY CLINICAL RECORDS. [facility]. provides no warranty or guarantee of the accuracy or completeness of information in this document.
--- NOTE | 2024-04-11 15:13 | CT_ITS ---
[address] [address] Patient Name: JHONATAN MONTOYA MRN: [id number] date: 1955 Sex: F Assigned Patient Location: [place] Current Patient Location: [place] Accession/Order Number: [id number] Exam Date: 04/11/2024 16:25 Report Date: 04/11/2024 17:27 At the request of: SHAIKH LUCITA Procedure: CT chest wo con EXAM: CT chest wo con HISTORY: Pneumonia. COMPARISON: 02/06/2024 TECHNIQUE: Axial CT imaging was performed through the chest without intravenous contrast. Multiplanar reformats were performed. Dose reduction techniques were achieved by using automated exposure control and/or adjustment of mA and/or kV according to patient size and/or use of iterative reconstruction technique. FINDINGS: Lungs: No pneumothorax or effusion. Right greater than left basilar peribronchial thickening, may represent bronchitis. No definite consolidation. Airways: Normal. Mediastinum: No adenopathy. Aorta: No aneurysm. Cardiac: Normal size. No pericardial effusion. Coronary Arteries: Coronary calcifications are absent. Pulmonary vasculature: Dilated main pulmonary artery, measuring 3.8 cm, representing chronic pulmonary hypertension. Bones: No acute bony abnormality. Axilla: No adenopathy. Thyroid gland: No abnormality demonstrated on provided imaging. Soft tissues: Unremarkable. Upper abdomen: Unremarkable. Other findings: None. CT/CT chest wo con IMPRESSION: Right greater than left basilar peribronchial thickening, may represent bronchitis. No definite consolidation. Evidence of chronic pulmonary hypertension. Electronically authenticated by: MAREK HOGUE Date: 04/11/2024 17:27
[2024-04-11] MEDS: IPRATROPIUM/ALBUTEROL SULFATE 3 ML AMPUL.NEB IH ×3 (15:47→22:51)
[2024-04-11 15:57] LABS: Basophils Percent Auto 0.3 % (0.2-2.0); Eosinophils Absolute Auto 0.3 10^3/uL (0.0-0.7); Eosinophils Percent Auto 2.7 % (0.9-7.0); Hematocrit 39.1 % (36.0-48.0); Hemoglobin 12.6 g/dL (12.0-16.0); Immature Granulocytes Abs Auto 0.19 10^3/uL (0.00-0.03); Immature Granulocytes Pct Auto 1.6 % (0.0-0.5); Lymphocytes Absolute Auto 1.8 10^3/uL (1.2-3.8); Lymphocytes Percent Auto 15.7 % (20.5-60.0); Mean Corpuscular HGB Conc 32.2 g/dL (29.9-35.2); Mean Corpuscular Hemoglobin 30.4 pg (26.7-34.0); Mean Corpuscular Volume 94.4 fL (81.0-99.0); Mean Platelet Volume 9.3 fL (9.5-13.5); Monocytes Absolute Auto 0.8 10^3/uL (0.3-0.8); Monocytes Percent Auto 6.8 % (1.7-12.0); Neutrophils Absolute Auto 8.6 10^3/uL (1.4-6.5); Neutrophils Percent Auto 72.9 % (43.0-75.0); Platelet Count 226 10^3/uL (150-450); Red Blood Count 4.14 10^6/uL (4.20-5.40); Red Cell Distribution Width 12.8 % (11.0-15.0); White Blood Count 11.7 10^3/uL (4.0-11.0)
[2024-04-11 16:05] LABS: Glucometer 90 mg/dL (74-106)
[2024-04-11 16:22] LABS: Alanine Aminotransferase 18 U/L (14-59); Albumin Globulin Ratio 0.9; Albumin Level 2.8 g/dL (3.4-5.0); Alkaline Phosphatase 82 U/L (46-116); Anion Gap 10.3; Aspartate Amino Transferase 9 U/L (15-37); BUN Creatinine Ratio 14.6; Bilirubin Total 0.2 mg/dL (0.2-1.0); Calcium 8.4 mg/dL (8.5-10.1); Carbon Dioxide 30.3 mmol/L (21.0-32.0); Chloride 106 mmol/L (98-107); Estimated GFR (African America >60 (>=60); Estimated GFR (Non-African Ame 58 (>=60); Globulin 3.2 g/dL; Glucose 99 mg/dL (74-106); Potassium 3.6 mmol/L (3.5-5.1); Sodium 143 mmol/L (136-145)
--- NOTE | 2024-04-11 16:25 | PC.NURSE ---
pt tele unit sent to be placed on patient, call placed to unit after an hour of pt not being placed on tele, was notified Svetlana CHRISTIANSON waiting to place on patient until after patient goes to CT scan.
[2024-04-11] MEDS: ENOXAPARIN SODIUM 40 MG/0.4 ML SYRINGE SUBQ (16:50)
[2024-04-11] MEDS: METHYLPREDNISOLONE SOD SUCC PF 125 MG/2 ML VIAL IVP (16:50)
[2024-04-11 20:26] LABS: Glucometer 290 mg/dL (74-106)
[2024-04-11] MEDS: METHYLPREDNISOLONE SOD SUCC PF 40 MG/ML VIAL IVP (22:05)
[2024-04-11] MEDS: INSULIN ASPART 300 UNIT/3 ML PEN SUBQ (22:05)
[2024-04-12] VITALS (12 sets, daily range): BP systolic 134; BP diastolic 69; PULSE 74–111; TEMP 36.7; O2SAT 92–94
[2024-04-12] MEDS: IPRATROPIUM/ALBUTEROL SULFATE 3 ML AMPUL.NEB IH ×3 (03:50→11:21)
[2024-04-12 04:48] LABS: Basophils Percent Auto 0.2 % (0.2-2.0); Hemoglobin 13.1 g/dL (12.0-16.0); Immature Granulocytes Abs Auto 0.22 10^3/uL (0.00-0.03); Immature Granulocytes Pct Auto 2.3 % (0.0-0.5); Lymphocytes Absolute Auto 0.5 10^3/uL (1.2-3.8); Mean Corpuscular HGB Conc 31.2 g/dL (29.9-35.2); Mean Corpuscular Hemoglobin 29.9 pg (26.7-34.0); Mean Corpuscular Volume 95.9 fL (81.0-99.0); Mean Platelet Volume 9.9 fL (9.5-13.5); Monocytes Absolute Auto 0.1 10^3/uL (0.3-0.8); Monocytes Percent Auto 0.8 % (1.7-12.0); Neutrophils Absolute Auto 8.9 10^3/uL (1.4-6.5); Neutrophils Percent Auto 91.7 % (43.0-75.0); Platelet Count 249 10^3/uL (150-450); Red Blood Count 4.38 10^6/uL (4.20-5.40); Red Cell Distribution Width 12.7 % (11.0-15.0); White Blood Count 9.7 10^3/uL (4.0-11.0)
[2024-04-12 05:36] LABS: Alanine Aminotransferase 19 U/L (14-59); Albumin Globulin Ratio 0.8; Alkaline Phosphatase 85 U/L (46-116); Aspartate Amino Transferase 7 U/L (15-37); BUN Creatinine Ratio 12.2; Bilirubin Total 0.1 mg/dL (0.2-1.0); Calcium 8.8 mg/dL (8.5-10.1); Carbon Dioxide 23.7 mmol/L (21.0-32.0); Chloride 104 mmol/L (98-107); Estimated GFR (African America 53 (>=60); Estimated GFR (Non-African Ame 44 (>=60); Globulin 3.6 g/dL; Glucose 278 mg/dL (74-106); Potassium 3.7 mmol/L (3.5-5.1); Sodium 141 mmol/L (136-145); Total Protein 6.6 g/dL (6.4-8.2)
[2024-04-12] MEDS: METHYLPREDNISOLONE SOD SUCC PF 40 MG/ML VIAL IVP (06:00)
--- OUTSIDE RECORDS SUMMARY | 2024-04-12 06:09 | XMS_ITS | CCD ---
Author Organization [facility] ion [facility] Care Team Providers Care Cash Processing Specialist Name Role Phone Steph Collier Attending Provider Unavailable Chantel Rainey Primary Care Provider Unavailabl e JoanaHerberth Attending Provider Unavailable Unavailable Primary Care Provider Unavailabl e UNKNOWN, PHYSICIAN Referring Unavailable JOO LINN Attending Unavailable JOO LINN Admitting Unavailable UNKNOWN, PHYSICIAN Primary Care Unavailable Rena Hurd Unavailable Joana, Herberth Unavailable Gato Domingo Unavailable [phone] Steph Collier Attending Provider MD Gato Domingo Attending Provider [phone] MD Nicky Ohara Primary Care Provider [phone] Gilma Trent Unavailable JOANA, HERBERTH Attending Unavailable [...] e FAWWAMame, SAUNDERS H Primary Care Unavailable [place], DR BRITTANY Elizondo Consulting Unavailable DARWIN, DR [...] Attending Unavailable FAWWAD, SAUNDERS H Consulting Unavailable [facility] Attending Unavailable JOO LINN Attending Unavailable Fawwad, Saunders Primary Care Unavailable Gato Domingo Attending Unavailabl Gato Galindo Admitting Unavailabl e Alicia DRAPER, Andrius Alex Attending Unavailable Giedraitis , Andrius Vytautas Attending Unavailable Gijamaraitis , Andrius Vytautas Attending Unavailable Gijamaraitis , Andrius Vytautas Attending Unavailable Gilorenzaitis , Andrius Vytautas Attending Unavailable Steph Collier Attending Provider FAWWAD, SAUNDERS Attending Unavailable FAWWAD, SAUNDERS Attending Unavailable FAWWAD, SAUNDERS Attending Unavailable FAWWAD, SAUNDERS Attending Unavailable ROSHNI LEDESMA Attending Unavailable SHAIKH OHARA Attending Unavailable SHAIKH OHARA Attending Unavailable SHAIKH OHARA Attending Unavailable SHAIKH OHARA Attending Unavailable Unavailable Unavailable Unavailable Allergies Allergy Classification Reported Allergen(s) Allergy Type Date of Onset Reaction(s) Facility (4 sources) fentaNYL; Translations: [fentanyl] Drug Allergy 07-07-20 17 Hallucinating [facility] (2 sources) linezolid; Translations: [LINEZOLID] Drug Allergy 03-17-20 20 [facility] Repository (20 sources) Vancomycin; Translations: [VANCOMYCIN] Drug Allergy 03-17-20 20 Unknown, Unknown Reaction [facility] Repository (12 sources) DENIES METAL SENSITITIVITY Propensity to adverse reactions 03-14-20 24 Unknown, Unknown Reaction [facility] Medications Current Medications Medication Drug Class(es) Dates Sig (Normalized) Sig (Original) 30 ACTUAT fluticasone furoate 0.2 MG/ACTUAT / umeclidinium 0.0625 MG/ACTUAT / vilanterol 0.025 MG/ACTUAT Dry Powder Inhaler [Trelegy] (2 sources) take 1 puff(s) by inhalation once daily Trelegy Ellipta 200-62.5-25 MCG/INH 1 puff Inhalation Once a day Active [id number] 200 actuat albuterol 0.09 mg/actuat metered dose [...] 14, 2024 12:00am Start: 12-08-2022 End: 03-14-2024 Gqxvcgnknqf-Poyjupbqf-Zebisa er (Trelegy Ellipta) 200-62.5-25 mcg blister with [...] 14, 2024 10:41am take 1 capsule by [facility] every twelve hours Omeprazole 20 MG 1 CAPSULE Orally TWICE A DAY Active take 1 capsule by [facility] once daily Omeprazole 20 MG 1 capsule [...] Active Start: 08-05-2022 take 1 tablet by [facility] every twelve hours Potassium Chloride ER [...] 1 puff(s) by inhalation twice daily Ipratropium [place] (Atrovent Hfa) 17 mcg/actuation Hfa Aerosol Inhaler [...] distribution width (RBC) [Ratio] 13.2 % 11.0-15.0 [facility] Estimated glomerular filtrat ion rate (GFR) non- Americanon 03-06-2024 GFR/1.73 sq M.predicted among non-blacks MDRD (S/P/Bld) [Vol rate/Area] 57 mL/min/{1.73_m2} >=60 [facility] Hematocrit Auto (Bld) [Volum e fraction]on 03-06-2024 Hematocrit (Bld) [Volume fraction] 38.7 % 36.0-48.0 [facility] Hemoglobin [Mass/volume] in Bloodon 03-06-2024 Hemoglobin (Bld) [Mass/Vol] 12.2 g/dL 12.0-16.0 [facility] Laboratory - Chemistry and C hemistry - challengeon 03-06-2024 Albumin [Mass/Vol] 3.0 g/dL 3.4-5.0 [facility] Calcium [Mass/Vol] 8.8 mg/dL 8.5-10.1 [facility] Chloride [Moles/Vol] 104 mmol/L 98-107 [facility] CO2 [Moles/Vol] 32.2 mmol/L 21.0-32.0 [facility] Creatinine [Mass/Vol] 0.97 mg/dL 0.55-1.02 [facility] GFR/1.73 sq M.predicted MDRD (S/P/Bld) [Vol rate/Area] mL/min/{1.73_m2} >=60 [facility] Glucose [Mass/Vol] 67 mg/dL 74-106 [facility] Magnesium [Mass/Vol] 1.9 mg/dL 1.8-2.4 [facility] Potassium [Moles/Vol] 3.4 mmol/L 3.5-5.1 [facility] Sodium [Moles/Vol] 143 mmol/L 136-145 [facility] Urate [Mass/Vol] 5.0 mg/dL 2.6-6.0 [facility] Urea nitrogen [Mass/Vol] 16.0 mg/dL 7.0-18.0 [facility] Urea nitrogen/Creatinine [Mass ratio] 16.5 mg/mg [facility] Leukocytes [#/volume] correc melanie for nucleated erythrocytes in Blood by Automated counon 03-06-2024 WBC corrected for nucl RBC Auto (Bld) [#/Vol] 8.1 10 3/uL 4.0-11.0 [facility] MCH Auto (RBC) [Entitic mass ]on 03-06-2024 MCH (RBC) [Entitic mass] 30.4 pg 26.7-34.0 [facility] MCHC Auto (RBC) [Mass/Vol]on 03-06-2024 MCHC (RBC) [Mass/Vol] 31.5 g/dL 29.9-35.2 [facility] MCV Auto (RBC) [Entitic vol] on 03-06-2024 MCV (RBC) [Entitic vol] 96.5 fL 81.0-99.0 [facility] No Panel Informationon 03-06 Urine Random Creatinine 63.27 mg/dL 20.00-300.00 [facility] Urine Random Total Protein <6.0 mg/dL <=11.9 [facility] 25-Hydroxy Vitamin D Total 37.1 ng/mL [facility] Comment on above: <20 ng/mL Vit D defi cient20-<30 ng/mL Vit D zcwqyujnsbmy33-288 ng/mL Vit D sufficient>100 ng/mL Potential Toxicity Parathyroid Hormone (Intact) 36 pg/mL 15-65 [facility] Comment on above: Performed at: - L [facility] [id number] Director: Raphael Marrero PhD, Phone: [phone] Phosphorus Level 3.2 mg/dL 2.6-4.7 [facility] Platelet mean volume Auto (B ld) [Entitic vol]on 03-06-2024 Platelet mean volume (Bld) [Entitic vol] 9.1 fL 9.5-13.5 [facility] Platelets Auto (Bld) [#/Vol] on 03-06-2024 Platelets (Bld) [#/Vol] 247 10 3/uL 150-450 [facility] RBC Auto (Bld) [#/Vol]on RBC (Bld) [#/Vol] 4.01 10 6/uL 4.20-5.40 [facility] Serum or plasma anion gap de terminationon 03-06-2024 Anion gap [Moles/Vol] 10.2 mmol/L [facility] Follow-Upon 05-08-2023 Follow-Up [id number] Nell Champion 1955 F Date Provider Department Center 05/08/2023 Siddharth-HETAL SCALES PRASANTH Baker Family History Problem Relation Age of Onset Heart failure Mother Heart disease Father Family Status - Relation Status Age at Mother Father Level of Service:[address]39[address] [place] OFFICE/OUTPATIENT ESTABLISHED LOW MDM 20-29 MIN Normal [facility] 05-03-2023 37 PATIENT CALLED TO CANCEL SURGERY FOR July D/T HER LUNG DISEASE. WILL CALL TO RESCHEDULE WHEN FULLY HEALED FROM LUNGS AND CLEARED//[facility] Normal [facility] 04-19-2023 37 FYI CALLED PATIENT T O F/U ON MEDICAL AND PULMONARY CLEARANCES FOR R ELZA ON 05/19 AND PRE-OP RIYA'T 04/27 WITH US AND PATIENT IS CURRENTLY INPATIENT SINCE LAST WEEK D/T COVID AND PULMONARY ISSUES, SHE WILL CALL US ON 04/25 WITH PROGRESS, PLEASE ADVISE IF WE SHOULD CANCEL SURGERY FOR NOW..THANKS//[facility] SYMPTOMATIC COVID-19 ANTIGEN on 04-04-2023 EUA Statement SEE BELOW Normal [facility] Comment on above: Result Comment: This test [...] sooner. Performed By: #### C VDAGS #### [facility] [address] [place], [place] [address] Dr. Shayne Roldan SARS-CoV-2 (COVID-19) RNA KAYLEE+probe Ql (Unsp spec) Positive Abnormal NEGATIVE [facility] Comment on above: Performed By: #### C VDAGS #### [facility] [address] [place], [place] [address] Dr. Shayne Roldan XR LSPINE 2_3 VIEWSon [...] STEPH GRANADOS Date: 2023-03-24 12:52 Normal [facility] PTH INTACTon 02-27-2023 PTH, Intact 87 pg/mL Critically high 15-65 [facility] Comment on above: Performed By: #### P THINT #### [facility] [address] [place] [address] Dr. Shayne Roldan HEMOGRAM AND PLATELon 2022 Hematocrit (Bld) [Volume fraction] 44.4 % Normal 36.0-48.0 [facility] Comment on above: Performed By: #### H H #### [facility] [address] [place] [address] Dr. Shayne Roldan Hemoglobin (Bld) [Mass/Vol] 14.5 g/dL Normal 12.0-16.0 [facility] Comment on above: Performed By: #### H H #### [facility] [address] [place] [address] Dr. Shayne Roldan MCH (RBC) [Entitic mass] 30.3 pg Normal 26.7-34.0 [facility] Comment on above: Performed By: #### H H #### [facility] [address] [place] [address] Dr. Shayne Roldan MCHC (RBC) [Mass/Vol] 32.7 g/dL Normal 29.9-35.2 [facility] Comment on above: Performed By: #### H H #### [facility] [address] [place] [address] Dr. Shayne Roldan MCV (RBC) [Entitic vol] 92.9 fL Normal 81.0-99.0 [facility] Comment on above: Performed By: #### H H #### [facility] [address] [place] [address] Dr. Shayne Roldan PLT 367 103/ul Normal 150-450 [facility] Comment on above: Performed By: #### H H #### [facility] [address] [place] [address] Dr. Shayne Roldan RBC 4.78 106/ul Normal 4.20-5.40 [facility] Comment on above: Performed By: #### H H #### [facility] [address] [place] [address] [address] Shayne Roldan WBC 9.9 103/ul Normal 4.0-11.0 [facility] Comment on above: Performed By: #### H H #### [facility] [address] [place] [address] Dr. Shayne Roldan MAGNESIUMon 02-25-2023 Magnesium [Mass/Vol] 1.6 mg/dL Critically low 1.8-2.4 [facility] Comment on above: Performed By: #### M G, RENAL, URIC #### [facility] [address] [place] [address] Dr. Shayne Roldan RENAL FUNCTION PANELon 02-25 Albumin [Mass/Vol] 3.4 g/dL Normal 3.4-5.0 [facility] Comment on above: Performed By: #### M G, RENAL, URIC #### [facility] [address] [place] [address] Dr. Shayne Roldan Calcium [Mass/Vol] 8.7 mg/dL Normal 8.5-10.1 [facility] Comment on above: Performed By: #### M G, RENAL, URIC #### [facility] [address] [place] [address] Dr. Shayne Roldan Chloride [Moles/Vol] 104 mmol/L Normal 98-107 [facility] Comment on above: Performed By: #### M G, RENAL, URIC #### [facility] [address] [place] [address] Dr. Shayne Roldan CO2 [Moles/Vol] 25.9 mmol/L Normal 21.0-32.0 [facility] Comment on above: Performed By: #### M G, RENAL, URIC #### [facility] [address] [place] [address] Dr. Shayne Roldan Creatinine [Mass/Vol] 1.19 mg/dL Critically high 0.55-1.02 [facility] Comment on above: Performed By: #### M G, RENAL, URIC #### [facility] [address] [address] [address] Shayne Roldan EGFR-AF IRISH 55 mL/min/1.73m2 Critically low >=60 [facility] Comment on above: Performed By: #### M G, RENAL, URIC #### [facility] [address] [address] [address] Shayne Roldan EGFR-NON AF IRISH 45 mL/min/1.73m2 Critically low >=60 [facility] Comment on above: Performed By: #### M G, RENAL, URIC #### [facility] [address] [address] [address] Shayne Roldan Glucose [Mass/Vol] 193 mg/dL Critically high 74-106 [facility] Comment on above: Performed By: #### M G, RENAL, URIC #### [facility] [address] [address] [address] Shayne Roldan Phosphate [Mass/Vol] 3.2 mg/dL Normal 2.6-4.7 [facility] Comment on above: Performed By: #### M G, RENAL, URIC #### [facility] [address] [address] [address] Shayne Roldan Potassium [Moles/Vol] 3.9 mmol/L Normal 3.5-5.1 [facility] Comment on above: Performed By: #### M G, RENAL, URIC #### [facility] [address] [address] [address] Shayne Roldan Sodium [Moles/Vol] 140 mmol/L Normal 136-145 [facility] Comment on above: Performed By: #### M G, RENAL, URIC #### [facility] [address] [address] [address] Shayne Roldan Urea nitrogen [Mass/Vol] 17.0 mg/dL Normal 7.0-18.0 [facility] Comment on above: Performed By: #### M G, RENAL, URIC #### [facility] [address] [address] [address] Shayne Roldan UA RANDOM W/MICROSCOPICon 04 -22-2023 BACTERIA TRACE Abnormal NONE SEEN [facility] Comment on above: Performed By: #### M G, RENAL, URIC #### [facility] [address] [address] [address] Shayne Roldan Bilirubin Ql (U) Negative Normal NEGATIVE [facility] Comment on above: Performed By: #### M G, RENAL, URIC #### [facility] [address] [address] [address] Shayne Roldan CAST NONE SEEN Normal NONE SEEN [facility] Comment on above: Performed By: #### M G, RENAL, URIC #### [facility] [address] [address] [address] Shayne Roldan Clarity (U) CLEAR Normal CLEAR [facility] Comment on above: Performed By: #### M G, RENAL, URIC #### [facility] [address] [place] [address] Dr. Shayne Roldan Color (U) LT. YELLOW Normal YELLOW [facility] Comment on above: Performed By: #### M G, RENAL, URIC #### [facility] [address] [address] [address] Shayne Roldan Crystals LM Nom (Urine sed) NONE SEEN Normal NONE SEEN [facility] Comment on above: Performed By: #### M G, RENAL, URIC #### [facility] [address] [place] [address] Dr. Shayne Roldan Epithelial cells LM Ql (Urine sed) RARE Normal NONE SEEN /RARE [facility] Comment on above: Performed By: #### M G, RENAL, URIC #### [facility] [address] [address] [address] Shayne Roldan Glucose Ql (U) Negative Normal NEGATIVE [facility] Comment on above: Performed By: #### M G, RENAL, URIC #### [facility] [address] [address] [address] Shayne Roldan Hemoglobin Ql (U) Negative Normal NEGATIVE [facility] Comment on above: Performed By: #### M G, RENAL, URIC #### [facility] [address] [address] [address] Shayne Roldan Ketones Ql (U) Negative Normal NEGATIVE [facility] Comment on above: Performed By: #### M G, RENAL, URIC #### [facility] [address] [address] [address] Shayne Roldan LEUKOCYTES Negative Normal NEGATIVE [facility] Comment on above: Performed By: #### M G, RENAL, URIC #### [facility] [address] [address] [address] Shayne Roldan MUCOUS NONE SEEN Normal NONE SEEN [facility] Comment on above: Performed By: #### M G, RENAL, URIC #### [facility] [address] [address] [address] Shayne Roldan Nitrite Ql (U) Negative Normal NEGATIVE [facility] Comment on above: Performed By: #### M G, RENAL, URIC #### [facility] [address] [place] [address] Dr. Shayne Roldan pH (U) 5.0 [pH] Normal 5-9 [facility] Comment on above: Performed By: #### M G, RENAL, URIC #### [facility] [address] [place] [address] Dr. Shayne Roldan RBC 0-2 Normal 0-2 [facility] Comment on above: Performed By: #### M G, RENAL, URIC #### [facility] [address] [place] [address] Dr. Shayne Roldan SPEC GRAVITY 1.025 Normal 1.005-<=1.025 [facility] Comment on above: Performed By: #### M G, RENAL, URIC #### [facility] [address] [place] [address] Dr. Shayne Roldan UA PROTEIN Negative Normal NEGATIVE/ TRACE [facility] Comment on above: Performed By: #### M G, RENAL, URIC #### [facility] [address] [place] [address] Dr. Shayne Roldan Urobilinogen Qn (U) 0.2 {Rogelio'U}/dL Normal 0.2 - 1. 0 [facility] Comment on above: Performed By: #### M G, RENAL, URIC #### [facility] [address] [place] [address] Dr. Shayne Roldan WBC 0-2 Abnormal NONE SEEN [facility] Comment on above: Performed By: #### M G, RENAL, URIC #### [facility] [address] [place] [address] Dr. Shayne Roldan URIC ACID SERUMon 02-25-2023 Urate [Mass/Vol] 6.1 mg/dL Critically high 2.6-6.0 [facility] Comment on above: Performed By: #### M G, RENAL, URIC #### [facility] [address] [place] [address] Dr. Shayne Roldan URINE T PROTEIN CREAT RATIOo n 02-25-2023 Protein (U) [Mass/Vol] 13.0 mg/dL Critically high <=12.0 [facility] Comment on above: Performed By: #### M G, RENAL, URIC #### [facility] [address] [place] [address] Dr. Shayne Roldan UR PROT CREAT RAT 0.[address] [facility] Comment on above: Performed By: #### M G, RENAL, URIC #### [facility] [address] [place] [address] Dr. Shayne Roldan URINE CREAT 83.60 mg/dL Normal 20.00-300.00 [facility] Comment on above: Performed By: #### M G, RENAL, URIC #### [facility] [address] [place] [address] Dr. Shayne Roldan VITAMIN D 25 OHon 02-25-2023 VIT D 25-OH 41.6 ng/mL Normal [facility] Comment on above: Performed By: #### M G, RENAL, URIC #### [facility] [address] [place] [address] Dr. Shayne Roldan VIT D RANGES SEE BELOW Normal [facility] Comment on above: Result Comment: <20 ng/mL Vit D deficient 20 - <30 ng/mL Vit D insufficient 30 - 100 ng/mL Vit D sufficient >100 ng/mL Potential Toxicity Performed By: #### M G, RENAL, URIC #### [facility] [address] [place], [place] [address] Dr. Shayne Roldan XR CHEST 2 Von [...] by: BRITTANY GALDAMEZ Date: 2023-02-22 16:15 Normal [facility] MAMM SCREEN 3D PRATEEK CADon 12-15-2022 MAMM SCREEN 3D PRATEEK CAD Patient: DIANA CHAMPION Exam Date: 12/15/2022 : 1955 Gender:F Ordering : DR JACK HALL . Admission #: [id number] Family : Order #: [id number] CLICK HERE TO VIEW EXAM RADIOLOGY REPORT PROCEDURE: MAMMOGRAM SCREENING 3D BILATERAL CAD COMPARISON: MAMM SCREEN 3D PRATEEK CAD, 11/26/2021. INDICATIONS: Calculator Name NCI Breast Cancer Risk Assessment Tool 5 Year Breast Cancer Risk 1.20% Lifetime Breast Cancer Risk 4.40% Personal Breast Cancer No Personal Ovarian Cancer No Treatments Excision, radiation, chemotherapy Family Cancers None LOCATION: [facility] BREAST COMPOSITION: Almost entirely fatty. [...] [id number] Received: 12/08/22 Status: CELIA Kay Num: [id number] Spec Type: Surgical Subm Dr: Gato Domingo MD Tissues: A Colon Biopsy (DESC COL POLYP) Procedures: HE/2, Gross/Micro L4 -------- Age/ Patient Sex Location Account Attending Physician -------- Champion,Diana Meng 67/F [id number] Gato Domingo MD -------- SPEC NUM: [id number] RECD: 12/08/22 STATUS: CELIA KAY NUM: [id number] KENDRA: 12/08/22 [facility] DR: Gato Domingo MD ENTERED: 12/08/22 [facility] [address]: KHRIS TYPE: Surgical DEPT: S ENTERED BY: [id number] RECV BY: [id number] ORDERED: HE/2, Gross/Micro L4 ORDERED: HE/2, Gross/Micro [...] support the above pathologic diagnosis. CPT Codes 44635 -------- -------- Specimen: [id number] Received: 12/08/22 Status: CELIA Kay Num: [id number] Spec Type: Surgical Subm Dr: Gato Domingo MD Tissues: A Colon Biopsy (DESC COL POLYP) Procedures: HE/2, Gross/Micro L4 -------- Patient: ChampionDiana Meng [id number] (Continued) -------- Signed (signature on file) Eunice Rosa MD 12/09/22 1053 [facility] PAP ACOG PANEL 2: 30 to 65on 11-16-2022 . . Normal [facility] Comment on above: Performed By: #### [id number] #### [facility] [address] [place] [address] Dr. Shayne Roldan Age Gdln ACOG Testing Comment [facility] Comment on above: Result Comment: <21 or >65 or no age provided Performed By: #### [id number] #### [facility] [address] [place] [address] Dr. Shayne Roldan DIAGNOSIS: Comment [facility] Comment on above: Result Comment: NEGA TIVE FOR INTRAEPITHELIAL LESION OR MALIGNANCY. Performed By: #### [id number] #### [facility] [address] [place] [address] Dr. Shayne Roldan Methodology: Comment Normal [facility] Comment on above: Result Comment: This liquid based ThinPrep(R) pap test was screened with the use of an image guided system. Performed By: #### [id number] #### [facility] [address] [place] [address] Dr. Shayne Roldan Note: Comment Normal [facility] Comment on above: Result Comment: The Pap smear is a screening test designed to aid in the detection of premalignant and malignant conditions of the uterine cervix. It is not a diagnostic procedure and should not be used as the sole means of detecting cervical cancer. Both false-positive and false-negative reports do occur. . Performed By: #### [id number] #### [facility] [address] [place] [address] Dr. Shayne Roldan Performed by: Comment Normal [facility] Comment on above: Result Comment: Onur Aguilar Project Geologist (ASCP) Performed By: #### [id number] #### [facility] [address] [place] [address] Dr. Shayne Roldan Specimen adequacy: Comment Normal [facility] Comment on above: Result Comment: Sati sfactory for evaluation. Endocervical and/or squamous metaplastic cells (endocervical component) are present. Performed By: #### [id number] #### [facility] [address] [place] [address] Dr. Shayne Roldan RENAL FUNCTION PANELon 08-19 Albumin [Mass/Vol] 3.4 g/dL Normal 3.4-5.0 [facility] Comment on above: Performed By: #### M G, RENAL, URIC #### [facility] [address] [place] [address] Dr. Shayne Roldan Calcium [Mass/Vol] 8.4 mg/dL Critically low 8.5-10.[address] [facility] Comment on above: Performed By: #### M G, RENAL, URIC #### [facility] [address] [place] [address] Dr. Shayne Roldan Chloride [Moles/Vol] 103 mmol/L Normal 98-107 [facility] Comment on above: Performed By: #### M G, RENAL, URIC #### [facility] [address] [address] [address] Shayne Roldan CO2 [Moles/Vol] 27.8 mmol/L Normal 21.0-32.0 [facility] Comment on above: Performed By: #### M G, RENAL, URIC #### [facility] [address] [place] [address] Dr. Shayne Roldan Creatinine [Mass/Vol] 1.02 mg/dL Normal 0.55-1.02 [facility] Comment on above: Performed By: #### M G, RENAL, URIC #### [facility] [address] [place] [address] Dr. Shayne Roldan EGFR-AF IRISH >60 Normal >=60 [facility] Comment on above: Performed By: #### M G, RENAL, URIC #### [facility] [address] [place] [address] Dr. Shayne Roldan EGFR-NON AF IRISH 54 mL/min/1.73m2 Critically low >=60 [facility] Comment on above: Performed By: #### M G, RENAL, URIC #### [facility] [address] [place] [address] Dr. Shayne Roldan Glucose [Mass/Vol] 110 mg/dL Critically high 74-106 T [facility] Comment on above: Performed By: #### M G, RENAL, URIC #### [facility] [address] [place] [address] Dr. Shayne Roldan Phosphate [Mass/Vol] 2.3 mg/dL Critically low 2.6-4.7 [facility] Comment on above: Performed By: #### M G, RENAL, URIC #### [facility] [address] [place] [address] Dr. Shayne Roldan Potassium [Moles/Vol] 3.2 mmol/L Critically low 3.5-5.1 [facility] Comment on above: Performed By: #### M G, RENAL, URIC #### [facility] [address] [place] [address] Dr. Shayne Roldan Sodium [Moles/Vol] 138 mmol/L Normal 136-145 [facility] Comment on above: Performed By: #### M G, RENAL, URIC #### [facility] [address] [place] [address] Dr. Shayne Roldan Urea nitrogen [Mass/Vol] 14.0 mg/dL Normal 7.0-18.0 [facility] Comment on above: Performed By: #### M G, RENAL, URIC #### [facility] [address] [place] [address] Dr. Shayne Roldan PTH INTACTon 08-06-2022 PTH, Intact 40 pg/mL Normal 15-65 [facility] Comment on above: Performed By: #### M G, RENAL, URIC #### [facility] [address] [place] [address] Dr. Shayne Roldan HEMOGRAM AND PLATELon 2021 Hematocrit (Bld) [Volume fraction] 39.8 % Normal 36.0-48.0 [facility] Comment on above: Performed By: #### M G, RENAL, URIC #### [facility] [address] [place] [address] Dr. Shayne Roldan Hemoglobin (Bld) [Mass/Vol] 13.4 g/dL Normal 12.0-16.0 [facility] Comment on above: Performed By: #### M G, RENAL, URIC #### [facility] [address] [place] [address] Dr. Shayne Roldan MCH (RBC) [Entitic mass] 30.5 pg Normal 26.7-34.0 [facility] Comment on above: Performed By: #### M G, RENAL, URIC #### [facility] [address] [place] [address] Dr. Shayne Roldan MCHC (RBC) [Mass/Vol] 33.7 g/dL Normal 29.9-35.2 [facility] Comment on above: Performed By: #### M G, RENAL, URIC #### [facility] [address] [place] [address] Dr. Shayne Roldan MCV (RBC) [Entitic vol] 90.5 fL Normal 81.0-99.0 [facility] Comment on above: Performed By: #### M G, RENAL, URIC #### [facility] [address] [place] [address] Dr. Shayne Roldan PLT 299 103/ul Normal 150-450 [facility] Comment on above: Performed By: #### M Poncho, RENAL, URIC #### [facility] [address] [place] [address] Dr. Shayne Roldan RBC 4.40 106/ul Normal 4.20-5.40 [facility] Comment on above: Performed By: #### M Poncho, RENAL, URIC #### [facility] [address] [place] [address] Dr. Shayne Roldan WBC 8.8 103/ul Normal 4.0-11.0 [facility] Comment on above: Performed By: #### M Poncho, RENAL, URIC #### [facility] [address] [place] [address] Dr. Shayne Roldan MAGNESIUMon 08-05-2022 Magnesium [Mass/Vol] 1.5 mg/dL Critically low 1.8-2.4 [facility] Comment on above: Performed By: #### M Poncho, RENAL, URIC #### [facility] [address] [place] [address] Dr. Shayne Roldan RENAL FUNCTION PANELon 08-05 Albumin [Mass/Vol] 3.5 g/dL Normal 3.4-5.0 [facility] Comment on above: Performed By: #### M G, RENAL, URIC #### [facility] [address] [place] [address] Dr. Shayne Roldan Calcium [Mass/Vol] 8.4 mg/dL Critically low 8.5-10.[address] [facility] Comment on above: Performed By: #### M G, RENAL, URIC #### [facility] [address] [place] [address] Dr. Shayne Roldan Chloride [Moles/Vol] 101 mmol/L Normal 98-107 [facility] Comment on above: Performed By: #### M G, RENAL, URIC #### [facility] [address] [address] [address] Shayne Roldan CO2 [Moles/Vol] 29.5 mmol/L Normal 21.0-32.0 [facility] Comment on above: Performed By: #### M G, RENAL, URIC #### [facility] [address] [address] [address] Shayne Roldan Creatinine [Mass/Vol] 1.04 mg/dL Critically high 0.55-1.02 [facility] Comment on above: Performed By: #### M G, RENAL, URIC #### [facility] [address] [address] [address] Shayne Roldan EGFR-AF IRISH >60 Normal >=60 [facility] Comment on above: Performed By: #### M G, RENAL, URIC #### [facility] [address] [address] [address] Shayne Roldan EGFR-NON AF IRISH 53 mL/min/1.73m2 Critically low >=60 [facility] Comment on above: Performed By: #### M G, RENAL, URIC #### [facility] [address] [address] [address] Shayne Roldan Glucose [Mass/Vol] 92 mg/dL Normal 74-106 [facility] Comment on above: Performed By: #### M G, RENAL, URIC #### [facility] [address] [address] [address] Shayne Roldan Phosphate [Mass/Vol] 2.4 mg/dL Critically low 2.6-4.7 [facility] Comment on above: Performed By: #### M G, RENAL, URIC #### [facility] [address] [address] [address] Shayne Roldan Potassium [Moles/Vol] 2.8 mmol/L Critically low 3.5-5.1 [facility] Comment on above: Performed By: #### M G, RENAL, URIC #### [facility] [address] [address] [address] Shayne Roldan Sodium [Moles/Vol] 137 mmol/L Normal 136-145 [facility] Comment on above: Performed By: #### M G, RENAL, URIC #### [facility] [address] [place] [address] Dr. Shayne Roldan Urea nitrogen [Mass/Vol] 10.0 mg/dL Normal 7.0-18.0 [facility] Comment on above: Performed By: #### M G, RENAL, URIC #### [facility] [address] [place] [address] Dr. Shayne Roldan UA RANDOM W/MICROSCOPICon BACTERIA SMALL Abnormal NONE SEEN [facility] Comment on above: Performed By: #### U AMIC #### [facility] [address] [place] [address] Dr. Shayne Roldan Bilirubin Ql (U) Negative Normal NEGATIVE [facility] Comment on above: Performed By: #### U AMIC #### [facility] [address] [place] [address] Dr. Shayne Roldan CAST NONE SEEN Normal NONE SEEN [facility] Comment on above: Performed By: #### U AMIC #### [facility] [address] [place] [address] Dr. Shayne Roldan Clarity (U) CLEAR Normal CLEAR [facility] Comment on above: Performed By: #### U AMIC #### [facility] [address] [place] [address] Dr. Shayne Roldan Color (U) LT. YELLOW Normal YELLOW [facility] Comment on above: Performed By: #### U AMIC #### [facility] [address] [place] [address] Dr. Shayne Roldan Crystals LM Nom (Urine sed) NONE SEEN Normal NONE SEEN [facility] Comment on above: Performed By: #### U AMIC #### [facility] [address] [place] [address] Dr. Shayne Roldan Epithelial cells LM Ql (Urine sed) FEW Abnormal NONE SEEN /RARE [facility] Comment on above: Performed By: #### U AMIC #### [facility] [address] [place] [address] Dr. Shayne Roldan Glucose Ql (U) Negative Normal NEGATIVE [facility] Comment on above: Performed By: #### U AMIC #### [facility] [address] [address] [address] Shayne Roldan Hemoglobin Ql (U) Negative Normal NEGATIVE [facility] Comment on above: Performed By: #### U AMIC #### [facility] [address] [address] [address] Shayne Roldan Ketones Ql (U) Negative Normal NEGATIVE [facility] Comment on above: Performed By: #### U AMIC #### [facility] [address] [address] [address] Shayne Roldan LEUKOCYTES TRACE Abnormal NEGATIVE [facility] Comment on above: Performed By: #### U AMIC #### [facility] [address] [place] [address] Dr. Shayne Roldan MUCOUS NONE SEEN Normal NONE SEEN [facility] Comment on above: Performed By: #### U AMIC #### [facility] [address] [place] [address] Dr. Shayne Roldan Nitrite Ql (U) Negative Normal NEGATIVE [facility] Comment on above: Performed By: #### U AMIC #### [facility] [address] [address] [address] Shayne Roldan pH (U) 6.0 [pH] Normal 5-9 [facility] Comment on above: Performed By: #### U AMIC #### [facility] [address] [address] [address] Shayne Roldan RBC NONE SEEN Abnormal 0-2 [facility] Comment on above: Performed By: #### U AMIC #### [facility] [address] [address] [address] Shayne Roldan SPEC GRAVITY <=1.005 Abnormal 1.005-<=1.025 [facility] Comment on above: Performed By: #### U AMIC #### [facility] [address] [place] [address] Dr. Shayne Roldan UA PROTEIN Negative Normal NEGATIVE/ TRACE [facility] Comment on above: Performed By: #### U AMIC #### [facility] [address] [place] [address] Dr. Shayne Roldan Urobilinogen Qn (U) 0.2 {Rogelio'U}/dL Normal 0.2 - 1. 0 [facility] Comment on above: Performed By: #### U AMIC #### [facility] [address] [place] [address] Dr. Shayne Roldan WBC 5-10 Abnormal NONE SEEN [facility] Comment on above: Performed By: #### U AMIC #### [facility] [address] [place] [address] Dr. Shayne Roldan URIC ACID SERUMon 08-05-2022 Urate [Mass/Vol] 6.5 mg/dL Critically high 2.6-6.0 [facility] Comment on above: Performed By: #### M G, RENAL, URIC #### [facility] [address] [place] [address] Dr. Shayne Roldan URINE T PROTEIN CREAT RATIOo n 08-05-2022 Protein (U) [Mass/Vol] 4.8 mg/dL Normal <=12.0 [facility] Comment on above: Performed By: #### U RTPCR #### [facility] [address] [place] [address] Dr. Shayne Roldan UR PROT CREAT RAT 0.09 Normal [facility] Comment on above: Performed By: #### U RTPCR #### [facility] [address] [place] [address] Dr. Shayne Roldan URINE CREAT 52.65 mg/dL Normal 20.00-300.00 [facility] Comment on above: Performed By: #### U RTPCR #### [facility] [address] [place] [address] Dr. Shayne Roldan VITAMIN D 25 OHon 08-05-2022 VIT D 25-OH 38.9 ng/mL Normal [facility] Comment on above: Performed By: #### M G, RENAL, URIC #### [facility] [address] [place] [address] Dr. Shayne Roldan VIT D RANGES SEE BELOW Normal [facility] Comment on above: Result Comment: <20 ng/mL Vit D deficient 20 - <30 ng/mL Vit D insufficient 30 - 100 ng/mL Vit D sufficient >100 ng/mL Potential Toxicity Performed By: #### M G, RENAL, URIC #### [facility] [address] [place], [place] [address] Dr. Shayne Roldan IMMUNOGLOBULINS IGA/IGM/IGG/ IGE QUANTITAon 07-12-2022 Immunoglobulin A, Qn, Serum 295 mg/dL Normal 87-352 [facility] Comment on above: Result Comment: Perf ormed at: CB Performed By: #### M G, RENAL, URIC #### [facility] [address] [address] [address] Shayne Roldan Immunoglobulin E, Total 32 IU/mL Normal 6-495 [facility] Comment on above: Result Comment: Perf ormed at: BN Performed By: #### M G, RENAL, URIC #### [facility] [address] [address] [address] Shayne Roldan Immunoglobulin G, Qn, Serum 729 mg/dL Normal 586-1602 [facility] Comment on above: Result Comment: Perf ormed at: CB Performed By: #### M G, RENAL, URIC #### [facility] [address] [address] [address] Shayne Roldan Immunoglobulin M, Qn, Serum 75 mg/dL Normal 26-217 [facility] Comment on above: Result Comment: Perf ormed at: CB Performed By: #### M G, RENAL, URIC #### [facility] [address] [address] [address] Shayne Roldan Abstracton 07-08-2022 Abstract [id number] Nell Champion 1955 F Date Provider Department Center 07/08/2022 JOHANNA MEDINA [facility] Family History Problem Relation Age of Onset Heart failure Mother Heart disease Father Family Status - Relation Status Age at Mother Father Normal [facility] CBC AUTO DIFFon 07-05-2022 BASO # 0.1 103/ul Normal 0.0-0.1 [facility] Comment on above: Performed By: #### M G, RENAL, URIC #### [facility] [address] [address] [address] Shayne Roldan Basophils/100 WBC (Bld) 0.7 % Normal 0.2-2.0 [facility] Comment on above: Performed By: #### M G, RENAL, URIC #### [facility] [address] [place] [address] Dr. Shayne Roldan EO # 0.4 103/ul Normal 0.0-0.7 [facility] Comment on above: Performed By: #### M G, RENAL, URIC #### [facility] [address] [place] [address] Dr. Shayne Roldan Eosinophils/100 WBC (Bld) 4.4 % Normal 0.9-7.0 [facility] Comment on above: Performed By: #### M G, RENAL, URIC #### [facility] [address] [place] [address] Dr. Shayne Roldan Erythrocyte distribution width (RBC) [Ratio] 12.6 % Normal 11.0-15.0 [facility] Comment on above: Performed By: #### M G, RENAL, URIC #### [facility] [address] [place] [address] Dr. Shayne Roldan Hematocrit (Bld) [Volume fraction] 40.2 % Normal 36.0-48.0 [facility] Comment on above: Performed By: #### M G, RENAL, URIC #### [facility] [address] [place] [address] Dr. Shayne Roldan Hemoglobin (Bld) [Mass/Vol] 13.6 g/dL Normal 12.0-16.0 [facility] Comment on above: Performed By: #### M G, RENAL, URIC #### [facility] [address] [place] [address] Dr. Shayne Roldan IG # 0.07 10e3/ul Critically high 0.00-0.[address] [facility] Comment on above: Performed By: #### M G, RENAL, URIC #### [facility] [address] [address] [address] Shayne Roldan IG % 0.8 % Critically high 0.0-0.5 [facility] Comment on above: Performed By: #### M G, RENAL, URIC #### [facility] [address] [place] [address] Dr. Shayne Roldan LYMPH # 2.3 103/ul Normal 1.2-3.8 [facility] Comment on above: Performed By: #### M G, RENAL, URIC #### [facility] [address] [place] [address] Dr. Shayne Roldan Lymphocytes/100 WBC (Bld) 24.7 % Normal 20.5-60.0 [facility] Comment on above: Performed By: #### M G, RENAL, URIC #### [facility] [address] [place] [address] Dr. Shayne Roldan MANUAL DIFF REQ NO Normal [facility] Comment on above: Performed By: #### M G, RENAL, URIC #### [facility] [address] [place] [address] Dr. Shayne Roldan MCH (RBC) [Entitic mass] 30.7 pg Normal 26.7-34.0 [facility] Comment on above: Performed By: #### M G, RENAL, URIC #### [facility] [address] [place] [address] Dr. Shayne Roldan MCHC (RBC) [Mass/Vol] 33.8 g/dL Normal 29.9-35.2 [facility] Comment on above: Performed By: #### M G, RENAL, URIC #### [facility] [address] [place] [address] Dr. Shayne Roldan MCV (RBC) [Entitic vol] 90.7 fL Normal 81.0-99.0 [facility] Comment on above: Performed By: #### M G, RENAL, URIC #### [facility] [address] [place] [address] Dr. Shayne Roldan MONO # 0.7 103/ul Normal 0.3-0.8 [facility] Comment on above: Performed By: #### M G, RENAL, URIC #### [facility] [address] [address] [address] Shayne Roldan Monocytes/100 WBC (Bld) 7.7 % Normal 1.7-12.0 [facility] Comment on above: Performed By: #### M G, RENAL, URIC #### [facility] [address] [address] [address] Shayne Roldan NEUT # 5.7 103/ul Normal 1.4-6.5 [facility] Comment on above: Performed By: #### M G, RENAL, URIC #### [facility] [address] [place] [address] Dr. Shayne Roldan Neutrophils/100 WBC (Bld) 61.7 % Normal 43.0-75.0 [facility] Comment on above: Performed By: #### M G, RENAL, URIC #### [facility] [address] [place] [address] Dr. Shayne Roldan Platelet mean volume (Bld) [Entitic vol] 8.8 fL Critically low 9.5-13.5 [facility] Comment on above: Performed By: #### M G, RENAL, URIC #### [facility] [address] [place] [address] Dr. Shayne Roldan PLT 279 103/ul Normal 150-450 [facility] Comment on above: Performed By: #### M G, RENAL, URIC #### [facility] [address] [place] [address] Dr. Shayne Roldan RBC 4.43 106/ul Normal 4.20-5.40 [facility] Comment on above: Performed By: #### M G, RENAL, URIC #### [facility] [address] [place] [address] Dr. Shayne Roldan WBC 9.1 103/ul Normal 4.0-11.0 [facility] Comment on above: Performed By: #### M G, RENAL, URIC #### [facility] [address] [place] [address] Dr. Shayne Roldan Cov[facility]19 [facility]on SARS-CoV-2 (COVID-19) RNA KAYLEE+probe Ql (Unsp spec) Not detected Normal NOT DETECTED [facility] Comment on above: Result Comment: This test is not yet approved or cleared by the [place] FDA. When there are no FDA-approved or cleared tests available, and other criteria are met, FDA can make tests available under an emergency access mechanism called an Emergency Use Authorization (EUA). The EUA for this test is supported by the [employer] Specialist of Health and Human Service's (HHS's) declaration [...] By: #### M G, RENAL, URIC #### [facility] [address] [address] [address] Shayne Roldan XR CHEST 2 Von [...] NARDA LONDONO Date: 2022-06-08 19:58 Normal [facility] Covid-19 PCR ([facility])on SARS-CoV-2 (COVID-19) RNA KAYLEE+probe Ql (Unsp spec) Not detected Normal NOT DETECTED [facility] Comment on above: Result Comment: This test is not yet approved or cleared by the [place] FDA. When there are no FDA-approved or cleared tests available, and other criteria are met, FDA can make tests available under an emergency access mechanism called an Emergency Use Authorization (EUA). The EUA for this test is supported by the [place] of Health and Human Service's (HHS's) declaration [...] consistent with SARS-CoV-2. Performed By: #### [facility] #### [facility] [address] [place] [address] Dr. Shayne MADRIGAL AXIALmargarita 03-01-2022 DEXA AXIAL [facility] Department of Radiology [address] [place] [phone] Patient Name: DIANA CHAMPION : 1955 [...] characteristics. Electronically signed: Luzma Fernandez. Transcribed by: [email or web address], User Resident: Electronically Signed by: LUZMA FERNANDEZ @ 03/02/2022 01:07 PM Normal [facility] SCOLIOSIS 2 [facility] 02-24-2022 SCOLIOSIS 2 [facility] Department of Radiology [address] [place] [address] Patient Name: DIANA CHAMPION : [...] spine. Electronically signed: Hugo Lynn. Transcribed by: [email or web address], User Resident: Electronically Signed by: HUGO LYNN @ 02/26/2022 11:07 AM Normal [facility] Comment on above: Order Comment: Views (X-RAY, SCOLIOSIS): PA, Lateral evaluate CT LUMBAR SPINE W CONTRASTon 01-24-2022 CT LUMBAR SPINE W CONTRAST [facility] Department of Radiology [address] [place] [phone] Patient Name: DIANA CHAMPION : 1955 Sex: F Age: Race: White Pt. Location: 84 Patient Status: D Ordered Date: 01/09/2022 9:00:00 AM Completed Date: 01/24/2022 03:26 PM Requesting Provider: JOO LINN Attending Provider: JOO LINN Report Copy To: UNKNOWN, PHYSICIAN Signs & Symptoms: M54.16 Radiculopathy, lumbar region I10 History: [place] Comments: , CT MYELOGRAM>PAPER WORK IN CHART [...] L1-2. Electronically signed: Gaurang Lawrence. Transcribed by: [email or web address], User Resident: Electronically Signed by: GAURANG LAWRENCE @ 01/26/2022 08:58 AM Normal [facility] Comment on above: Order Comment: , CT MYELOGRAM>PAPER WORK IN CHART LUMBAR MYELOGRAMon 2 LUMBAR MYELOGRAM [facility] Department of Radiology [address] [place] [phone] Patient Name: DIANA CHAMPION : 1955 Sex: F Age: Race: White Pt. Location: 84 Patient Status: O Ordered Date: 01/09/2022 9:00:00 AM Completed Date: 01/24/2022 02:37 PM Requesting Provider: JOO LINN Attending Provider: JOO LINN Report Copy To: UNKNOWN, PHYSICIAN Signs & Symptoms: M54.16 Radiculopathy, lumbar region I10 History: Jessica Is patient on thinners? 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 Consent was obtained. Timeout: [place] protocol timeout verification performed. PROCEDURE: Estimated blood [...] report. Electronically signed: Greg Marlow. Transcribed by: [email or web address], User Resident: DEBBIE JI Electronically Signed by: GREG MARLOW @ 01/24/2022 04:07 PM I personally read this/these film(s) with this resident Normal [facility] Comment on above: Order Comment: , CT MYELOGRAM> PAPER WORK SCANNED IN CHART , CT MYELOGRAM> PAPER WORK SCANNED IN CHART , , , Ordering Provider - JOO LINN MD , HIP LEFT 1 OR 2 VWS WITH PEL VISon 01-06-2022 HIP LEFT 1 OR 2 VWS WITH PELVIS [facility] Department of Radiology [address] [place] [phone] Patient Name: DIANA CHAMPION : 1955 Sex: F Age: Race: White Pt. Location: 84 Patient Status: D Ordered Date: 12/21/2021 10:45:00 AM Completed Date: 01/06/2022 01:24 PM Requesting Provider: JOO LINN Attending Provider: JOO LINN Report Copy To: Signs & Symptoms: Z96.642 Presence of left artificial hip joint I10 History: [place] Comments: Evaluate Exam: HIP LEFT 1 OR 2 VWS WITH PELVIS HIP LEFT 1 OR 2 VWS WITH PELVIS HISTORY: Hip replacement, follow-up. COMPARISON: None. IMPRESSION: 1. Redemonstrated left hip prosthesis without visible complication. 2. Advanced right hip arthritis without significant change with advanced joint space narrowing. Unchanged lumbosacral fusion hardware. Electronically signed: Joe Matthew. Transcribed by: [email or web address], User Resident: Electronically Signed by: JOE MATTHEW @ 01/09/2022 04:45 PM Normal [facility] Comment on above: Order Comment: Evalu ate Vital Signs Date Time Vital Sign Value Performing Clinician Facility 03-14-2024 10:30-0400 Body height 165.1 cm Steph Collier Work Phone: [facility] 03-14-2024 10:30-0400 Body mass index (BMI) [Ratio] 39 kg/m2 Steph Collier Work Phone: [facility] 03-14-2024 10:30-040 Body temperature 97.4 [degF] Steph Collier Work Phone: [facility] 03-14-2024 10:30-0400 Body weight 106.36 kg Steph Collier Work Phone: [facility] 03-14-2024 10:30-0400 Diastolic blood pressure 80 mm[Hg] Steph Collier Work Phone: [facility] 03-14-2024 10:30-0400 Heart rate 77 /min Steph Collier Work Phone: [facility] 03-14-2024 10:30-0400 Inhaled oxygen flow rate 3 L/min Steph Collier Work Phone: [facility] 03-14-2024 10:30-0400 Respiratory rate 20 /min Steph Collier Work Phone: [facility] 03-14-2024 10:30-0400 SaO2% (BldA) [Mass fraction] 92 % Steph Collier Work Phone: [facility] 03-14-2024 10:30-0400 Systolic blood pressure 120 mm[Hg] Steph Collier Work Phone: [facility] 08-17-2023 09:20-0400 Body height 165.1 cm Herberth Joana Other [facility] 08-17-2023 09:20-0400 Body mass index (BMI) [Ratio] 38.1 kg/m2 Herberth Joana Other [facility] Other 08-17-2023 09:20-0400 Body temperature 98.8 [degF] Herberth Joana Other [facility] 08-17-2023 09:20-0400 Body weight 103.87 kg Herberth Joana Other [facility] Other 08-17-2023 09:20-0400 Diastolic blood pressure 85 mm[Hg] Herberth Joana Other [facility] Other 08-17-2023 09:20-0400 Respiratory rate 18 /min Herberth Joana Other [facility] Other 08-17-2023 09:20-0400 SaO2% (BldA) [Mass fraction] 94 % Herberth Joana Other [facility] Other 08-17-2023 09:20-0400 Systolic blood pressure 151 mm[Hg] Herberth Joana Other [facility] Other 03-02-2023 10:00-0400 Body height 165.1 cm Herberth Joana Other [facility] Other 03-02-2023 10:00-0400 Body mass index (BMI) [Ratio] 37.29 kg/m2 Herberth Joana Other [facility] Other 03-02-2023 10:00-0400 Body temperature 98.9 [degF] Herberth Joana Other [facility] Other 03-02-2023 10:00-0400 Body weight 101.65 kg Herberth Joana Other [facility] Other 03-02-2023 10:00-0400 Diastolic blood pressure 76 mm[Hg] Herberth Joana Other [facility] Other 03-02-2023 10:00-0400 Respiratory rate 20 /min Herberth Joana Other [facility] Other 03-02-2023 10:00-0400 SaO2% (BldA) [Mass fraction] 96 % Herberth Joana Other [employer] [facility] [employer] Other 03-02-2023 10:00-0400 Systolic blood pressure 136 mm[Hg] Herberth Joana Other [facility] Other 12-08-2022 09:30-0500 Diastolic blood pressure 59 mm[Hg] MD Shaikh Ohara Work Phone: [facility] 12-08-2022 09:30-0500 Heart rate 55 /min MD Shaikh Ohara Work Phone: [facility] 12-08-2022 09:30-0500 Respiratory rate 16 /min MD Shaikh Ohara Work Phone: [facility] 12-08-2022 09:30-0500 SaO2% (BldA) [Mass fraction] 96 % MD Shaikh Ohara Work Phone: [facility] 12-08-2022 09:30-0500 Systolic blood pressure 112 mm[Hg] MD Shaikh Ohara Work Phone: [facility] 12-08-2022 06:54-0500 Body height 162.56 cm MD Shaikh Ohara Work Phone: [facility] 12-08-2022 06:54-0500 Body temperature 98.2 [degF] MD Shaikh Ohara Work Phone: [facility] 12-08-2022 06:54-0500 Body weight 104.32 kg MD Shaikh Ohara Work Phone: [facility] 08-09-2022 11:00-0400 Body height 165.1 cm Herberth Joana Other [employer] [facility] [employer] Other 08-09-2022 11:00-0400 Body mass index (BMI) [Ratio] 37.87 kg/m2 Herberth Joana Other [facility] Other 08-09-2022 11:00-0400 Body temperature 97.2 [degF] Herberth Joana Other [facility] Other 08-09-2022 11:00-0400 Body weight 103.24 kg Herberth Joana Other [facility] Other 08-09-2022 11:00-0400 Diastolic blood pressure 88 mm[Hg] Herberth Joana Other [facility] Other 08-09-2022 11:00-0400 Respiratory rate 20 /min Herberth Joana Other [facility] Other 08-09-2022 11:00-0400 SaO2% (BldA) [Mass fraction] 95 % Herberth Joana Other [facility] Other 08-09-2022 11:00-0400 Systolic blood pressure 133 mm[Hg] Herberth Joana Other [facility] Other 11-17-2021 10:40-0500 Body height 165.1 cm Herberth Joana Other [facility] Other 11-17-2021 10:40-0500 Body mass index (BMI) [Ratio] 37.97 kg/m2 Herberth Joana Other [facility] Other 11-17-2021 10:40-0500 Body temperature 97.8 [degF] Herberth Joana Other [facility] Other 11-17-2021 10:40-0500 Body weight 103.51 kg Herberth Joana Other [facility] Other 11-17-2021 10:40-0500 Diastolic blood pressure 70 mm[Hg] Herberth Joana Other [facility] Other 11-17-2021 10:40-0500 Respiratory rate 18 /min Herberth Joana Other [facility] Other 11-17-2021 10:40-0500 SaO2% (BldA) [Mass fraction] 94 % Herberth Joana Other [facility] Other 11-17-2021 10:40-0500 Systolic blood pressure 130 mm[Hg] Herberth Joana Other [facility] Other 08-30-2021 13:15-0400 Body height 165.1 cm Rena Ginty Other [facility] Other 08-30-2021 13:15-0400 Body mass index (BMI) [Ratio] 36.61 kg/m2 Rena Ginty Other [facility] Other 08-30-2021 13:15-0400 Body temperature 98.7 [degF] Rena Ginty Other [facility] Other 08-30-2021 13:15-0400 Body weight 99.79 kg Rena Ginty Other [facility] Other 08-30-2021 13:15-0400 SaO2% (BldA) [Mass fraction] 90 % Rena Ginty Other [facility] [employer] Other Encounters Encounter Date Encounter Type Care Provider Facility Start: 04-03-2024 End: 04-03-2024 ambulatory SAUNDERS FAWWAD Not Available Start: 03-27-2024 End: 03-27-2024 ambulatory SAUNDERS FAWWAD Not Available Start: 03-14-2024 End: 03-14-2024 ambulatory Steph Galindo Work Phone: [facility] Work Phone: Start: 03-14-2024 End: 03-14-2024 Patient encounter procedure Steph Collier Work Phone: [facility] Physician [facility] Work Phone: Start: 03-06-2024 Non-patient / Non-visit Steph Collier Work Phone: [facility] Physician [facility] [place] Work Phone: Start: 02-26-2024 End: [...] 09-07-2023 End: 09-07-2023 ambulatory Herberth Joana Other [facility] Other Start: 09-07-2023 Telephone encounter Herberth Joana [facility] Start: 08-28-2023 End: 08-28-2023 ambulatory Herberth Joana Other [facility] Other Start: 08-28-2023 Telephone encounter Herberth Joana [facility] Start: 08-21-2023 End: 08-22-2023 ambulatory Jayshree Vargas MD Facility: [facility] Start: 08-17-2023 End: 08-17-2023 ambulatory Herberth Joana Other [facility] Other Start: 08-17-2023 Office outpatient visit 25 minutes Herberth Joana [facility] Start: 05-08-2023 End: 05-08-2023 ambulatory AB [facility] Start: 04-04-2023 End: 04-04-2023 ambulatory SAUNDERS Dimitry LEV Facility:[facility] Start: 03-24-2023 End: 03-25-[address] STEPH GRANADOS Facility:[facility] Start: 03-23-2023 ambulatory JOO LINN [facility] Start: 03-02-2023 End: 03-02-2023 ambulatory Herberth Joana Other [facility] Other Start: 03-02-2023 Office outpatient visit 25 minutes Herberth Joana [facility] Start: 02-25-2023 End: 02-26-2023 ambulatory HERBERTH JOANA Facility:[facility] Start: 02-22-2023 End: 02-23-2023 ambulatory BO LAMIN . Facility:[facility] Start: 12-15-2022 End: 12-16-[address] JACK HALL . Facility:[facility] Start: 12-08-2022 End: 12-08-2022 ambulatory Shaikh Lev Facility:[facility] Start: 12-08-2022 End: 12-08-2022 Admission to same day surgery center MD Shaikh Ohara Work Phone: [facility] Work Phone: Start: 12-08-2022 End: 12-08-2022 ambulatory MD Shaikh Ohara Work Phone: [facility] Work Phone: Start: 11-11-2022 End: 11-11-[address] JACK HALL . Facility:[facility] Start: 11-09-2022 End: 11-09-2022 ambulatory Azkatherine Bakhous Other [facility] Other Start: 11-09-2022 Telephone encounter Azkatherine Ruelashous [facility] Start: 08-19-2022 End: 08-20-2022 ambulatory HERBERTH JOANA Facility: Start: 08-09-2022 End: 08-09-2022 ambulatory Herberth Joana Other [facility] Other Start: 08-09-2022 Office outpatient visit 10 minutes Herberth Joana [facility] Start: 08-09-2022 Telephone encounter Herberth Joana [facility] Start: 08-05-2022 Telephone encounter Hebrerth Joana [facility] Start: 08-05-2022 End: 08-06-2022 ambulatory HERBERTH JOANA [facility] Other Start: 07-08-2022 End: 07-08-2022 ambulatory Gato Domingo Other [facility] Other Start: 07-08-2022 Telephone encounter Gato Arsenio ck [facility] Start: 07-05-2022 End: 07-06-2022 ambulatory SHAIKH Dimitry FAJavonWAD Facility:[facility] Start: 06-08-2022 End: 06-09-2022 ambulatory SAUNDERS H FAWWAD Facility:[facility] Start: 06-07-2022 End: 06-07-2022 ambulatory SAUNDERS H FAWWAD Facility:[facility] Start: 01-24-2022 End: 01-25-2022 ambulatory PHYSICIAN UNKNOWN Facility:[facility] Start: 11-17-2021 End: 11-17-2021 ambulatory Herberth Joana Other [facility] Other Start: 11-17-2021 Office outpatient visit 15 [...] 09-30-2019 End: 09-30-2019 Patient encounter procedure [facility] [place] Start: 07-07-2017 End: 07-07-2017 Admission to day surgery [facility] Start: 05-24-2004 Evaluation and management of inpatient [facility] [place] Start: 04-26-2004 Evaluation and management of inpatient [facility] [place] Procedures Date Procedure Procedure Detail Performing Clinician Start: 12-08-2022 Colonoscopy MD Shaikh Ohara Work Phone: Start: 09-11-2020 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 [employer] al Provider Start: 09-11-2020 EXTERNAL LAB External P rovider Start: 09-11-2020 EXTERNAL PROCEDURE Exte rnal Provider Start: 09-30-2019 Ultrasonography of b ilateral kidneys Steph Collier Plan of Treatment Date Care Activity Detail Author Start: 12-08-2022 [facility] Start: 07-07-2020 Influenza vaccination INFLUENZA (#1) [...] Colon Polypect shahram Hemorrhoids (DC) Diverticulosis (DC) [facility] Immunizations Immunization Date Immunization Notes Care Provider Henrietta charles 07-18-2018 Depo-Medrol 40 mg Rena Gint y Other [facility] Other 01-31-2018 Depo-Medrol 40 mg Rena Gint y Other [facility] Other 08-09-2017 influenza virus vaccine, unspecified formulation Steph Collier Work Phone: [facility] 08-09-2017 influenza, seasonal, injectable, preservative free Rena Ginty Other [facility] Other Payers Date Payer Category Payer Unknown 2022 Self-pay [id number] 2021 Medicare [id number] 2020 Medicaid [id number] 2019 Medicaid MEDICAID [facility] MEDICAID [id number] 2019-Present Medicaid [id number] 2016 Medicare MEDICARE MEDICAR E A AND B [id number] 2016-Present [place] [id number] [id number] 1959 Unknown [id number] 1955 Unknown [id number] 2.16.840.1.983697.3.579.2.647 1955 Unknown [id number] 2.16.840.1.970609.3.579.2.593 1955 Unknown [id number] 2.16.840.1.212162.3.579.2.593 1955 Unknown [id number] 2.16.840.1.295531.3.579.2.593 1955 Unknown [id number] 2.16.840.1.503010.3.579.2.593 1955 Unknown [id number] 2.16.840.1.838918.3.579.2.593 1955 Unknown [id number] 2.16.840.1.017995.3.579.2.593 1955 Unknown [id number] 2.16.840.1.746558.3.579.2.593 1955 Unknown [id number] 2.16.840.1.549603.3.579.2.593 1956 Unknown [id number] 2.16.840.1.284128.3.579.2.593 1956 Unknown [id number] 2.16.840.1.018722.3.579.2.593 1955 Unknown [id number] 2.16.840.1.140765.3.579.2.593 1955 Unknown [id number] 2.16.840.1.568933.3.579.2.196 1955 Unknown [id number] 2.16.840.1.849914.3.579.2.196 1955 Unknown [id number] 2.16.840.1.624250.3.579.2.196 1955 Unknown [id number] 2.16.840.1.079963.3.579.2.196 1955 Unknown [id number] 2.16840.1.087579.3.579.2.196 1955 Unknown [id number] 2.16.840.1.792916.3.579.2.125 1955 Unknown [id number] 2.16.840.1.489016.3.579.2.125 1955 Unknown [id number] 2.16.840.1.526847.3.579.2.1259 1955 Unknown [id number] 2.16.840.1.034293.3.579.2.125 1955 Unknown [id number] 2.16.840.1.502445.3.579.2.125 1955 Unknown [id number] 2.16.840.1.279855.3.579.2.125 1955 Unknown [id number] 2.16.840.1.291844.3.579.2.125 1955 Unknown [id number] 2.16.840.1.903763.3.579.2.125 1955 Unknown [id number] 2.16.840.1.805933.3.579.2.1259 Medicare [id number] Unknown HCAP/HFA/FAP Active [id number] Unknown [id number] 2.16.840.1.044083.3.579.2.531 Social History Date Type Detail Facility Tobacco smoking stat us [facility] Unknown if ever smoked [facility] Start: 1955 Sex Assigned At Female F [facility] Start: 09-11-2020 End: 03-14-2024 Tobacco smoking status NHIS Never smoker [facility] Start: 09-11-2020 Tobacco use and exposure Never used [facility] Start: 09-11-2020 Alcohol intake Lifetime non-d my (finding) [facility] Start: 09-11-2020 History SDOH Alcohol Frequency 1 [facility] Sex Assigned At Not on file [facility] Sex Assigned At Sex Assigned At Bir th [employer] [facility] [employer] Other Goals Date Patient Goal Desired Activity /State Clinical Notes 08-30-2021 to 09-07-2023 Note Date & Type Note Facility 09-07-2023 Evaluation note Encounter Date Diagnosis Assessment Notes Sep, Hypomagnesemia (ICD-10 - E83.42) [facility] [employer] Other 10-23-2023 Evaluation note* Encounter Date Diagnosis Assessment Notes Treatment Notes Treatment Clinical Notes Aug, Nico hy kid w cr kid I-IV (ICD-10 - I12.9) [facility] [employer] Other 10-12-2023 Evaluation note* Encounter Date Diagnosis [...] PPI induced GI losses. Continue oral Magnesium [facility] Chief Complaint: Patient here for 1 year follow up CAD and hypertension. She was recently discharged from [facility] for Covid-19. She says hydrochlorothiazide was stopped [...] breath since then. She has seen her dimensional integration engineer. Her chest pain is noncardiac. She has [...] 325 mg by mouth., Disp: , Rfl: gkknhoipztn-pudlazoif-zwbnoacm 100-62.5-25 mcg blister with device, , Disp: [...] CTAB, no increased eff (more content not included)...[facility]05-19-2023 NotePROCEDURE: XR HIP RT 2 3V W PELVIS HISTORY: Pain in right hip joint , chronic COMPARISON: XR L-spine 02/26/2019, XR left hip with pelvis 03/11/2017 FINDINGS: BONES:Complete loss of the right hip joint space with ryir-is-zchh articulation, subchondral sclerosis and cysts, and large [...] LIGATION Past Medical History: Diagnosis Date Cancer ([facility]) Hypertension Objective General: Body mass index is [...] from the patient's PCP as well as dimensional integration engineer for a right anterior total hip arthroplasty. [...] may be an additional personal documentation from me.[facility]04-27-2023 Evaluation note* Encounter Date Diagnosis Assessment [...] PPI induced GI losses. Continue oral Magnesium [facility]* Encounter Date Diagnosis Assessment Notes Treatment Notes Treatment Clinical Notes Nov, Hypokalemia (ICD-10 - E87.6) Nov, Hypomagnesemia (ICD-10 - E83.42) [facility] Other 10-04-2022 Evaluation note* Encounter Date Diagnosis [...] office does not accept her new insurance. [facility] Other 09-02-2022 Evaluation note* Encounter Date Diagnosis Assessment Notes Treatment Notes Treatment Clinical Notes Jul, History of colon cancer (ICD-10 - Z85.038) [facility] Other 01-12-2022 Evaluation note* Encounter Date Diagnosis [...] potassium wasting. I have prescribed oral potassium. [facility] Other 10-25-2021 Evaluation note* Encounter Date Diagnosis [...] [facility] Care At Home document [facility] Other Evaluation noteNo InformationNort [employer] Other Evaluation note* Diagnosis Onset Date Resolution Status History of colon cancer [facility] Work Phone: Evaluation note* Diagnosis Onset Date Resolution Status Hypokalemia acute Hypomagnesemia acute Stage 3 chronic kidney disease acute COVID noneactive Pneumonia noneactive [facility] Work Phone: Hisikjg general Narrative - Reported* Type Description Date [...] IN 08/2019 Hospitalization History HIP REVISION 03/2020 [facility] Other Hisfdck general Narrative - Reported* Type Description Date [...] Hospitalization History COVID X 2 WEEKS 04/2023 [facility] Other Hospital Discharge instructions Additional Instructions DISCHARGE [...] if you have any problems. -Office number [phone] Work Phone: Advance Directives No [...] and content) DATE CREATED AUTHOR 03/03/[address] [facility] DATE CREATED AUTHOR AUTHOR'S ORGANIZ ATION 04/17/2023 [facility] DATE CREATED AUTHOR AUTHOR'S ORGANIZ ATION 05/08/2023 [facility] DATE CREATED AUTHOR AUTHOR'S ORGANIZ ATION 06/07/2023 [facility] DATE CREATED AUTHOR AUTHOR'S ORGANIZ ATION 02/28/2024 [facility] DATE CREATED AUTHOR AUTHOR'S ORGANIZ ATION 04/04/2024 [facility] EPIC REASON FOR VISIT (unrecogniz [...] BE BASED ON THE PRIMARY CLINICAL RECORDS. [facility]. provides no warranty or guarantee of the accuracy or completeness of information in this document.
[2024-04-12] MEDS: INSULIN ASPART 300 UNIT/3 ML PEN SUBQ ×2 (07:53→11:51)
[2024-04-12 07:54] LABS: Glucometer 236 mg/dL (74-106)
--- NOTE | 2024-04-12 09:01 | SWNOTE1 ---
Medicare Outpatient Observation Notice reviewed and discussed with patient. Pt. verbalized understanding and signed the form. Original given to patient and copy placed in patient?s chart. JAZMIN met with pt to discuss dc needs. Pt lives at home with her son and uses a rollator at home. Pt wears home oxygen at 3 liters thru [facility]. Pt did have [facility] coming in, but they ended services a week ago. Pt would like them to come back in if possible. JAZMIN to send referral. Pt has no other discharge concerns/needs at this time. Pt voiced she is feeling about the same as when she came in. Referral sent to [facility]. Referral included face sheet and case management report.
--- NOTE | 2024-04-12 10:48 | SWNOTE1 ---
[facility] is able to accept. JAZMIN let nursing know.
[2024-04-12 11:40] LABS: Glucometer 306 mg/dL (74-106)
--- NOTE | 2024-04-12 11:43 | P.PLCN_ITS ---
History of Present Illness History of Present Illness Consult date: 04/12/24 Requesting physician: Shaikh Lev Reason for consult: COPD Chief complaint: EXASPERATION ASTHMA Narrative: 68yo female, very well known to me, presents to [facility] yesterday on direct admission from Dr. Ohara's office with increased congestion. I see her outpatient for COPD. 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 She continued to have a weak concepcion cough and developed dynamic airway collapse. I had her on an aggressive pulmonary toilet with PEP, saline nebs, and vest device. She seemed to have been doing better when I last examined her outpatient on 03/20/2024. However, she also had been treated outpatient with prednisone & antibiotics several times by her PCP and seemed worse at her F/U appointment yesterday, and was therefore admitted. She feels improved today, less congested. Does not feel like she needs a bronchoscopy for clearance of secretions. Denies any fevers, chills, sweats. Chest CT yesterday noted Right greater than left basilar peribronchial thickening, may represent bronchitis. Review of Systems ROS Status of ROS 10 or more systems reviewed and unremark able except as noted in history and below (Dyspnea, cough with phlegm, weakness (baseline).) [facility] Medical History Hypomagnesemia ?E83.42 - Hypomagnesemia (ICD-10) Acute hypokalemia ?E87.6 - Hypokalemia (ICD-10) Pneumonia ?J18.9 - Pneumonia, unspecified organism (ICD-10) Acute exacerbation of chronic obstructive pulmonary disease ?J44.1 - Chronic obstructive pulmonary disease with (acute) exacerbation (ICD-10) CAD (coronary artery disease) ?I25.10 - Atherosclerotic heart disease of [place] coronary artery without angina pectoris (ICD-10) Chronic heart failure with preserved ejection fraction (HFpEF) ?I50.32 - Chronic diastolic (congestive) heart failure (ICD-10) Hypertension ?I10 - Essential (primary) hypertension (ICD-10) Myofascial pain ?M79.18 - Myalgia, other site (ICD-10) Greater trochanteric bursitis ?M70.60 - Trochanteric bursitis, unspecified hip (ICD-10) Osteoarthritis of right hip ?M16.11 - Unilateral primary osteoarthritis, right hip (ICD-10) Lumbar spondylosis ?M47.816 - Spondylosis without myelopathy or radiculopathy, lumbar region (ICD-10) Lumbar postlaminectomy syndrome ?M96.1 - Postlaminectomy syndrome, not elsewhere classified (ICD-10) Lumbar stenosis with neurogenic claudication ?M48.062 - Spinal stenosis, lumbar region with neurogenic claudication (ICD- 10) Depression ?F32.A - Depression, unspecified (ICD-10) Chronic low back pain ?M54.50 - Low back pain, unspecified (ICD-10) ?G89.29 - Other chronic pain (ICD-10) Hypoxia ?R09.02 - Hypoxemia (ICD-10) Heart murmur ?R01.1 - Cardiac murmur, unspecified (ICD-10) Chronic obstructive pulmonary disease ?J44.9 - Chronic obstructive pulmonary disease, unspecified (ICD-10) Asthma ?J45.909 - Unspecified asthma, uncomplicated (ICD-10) Surgical History Status post hip surgery ?Z98.890 - Other specified postprocedural states (ICD-10) H/O foot surgery ?Z98.890 - Other specified postprocedural states (ICD-10) H/O tubal ligation ?Z98.51 - Tubal ligation status (ICD-10) History of lumbar fusion ?Z98.1 - Arthrodesis status (ICD-10) Family History (Updated 04/11/24 @ 14:54 by Darya Alexander) Mother Family history of CHF (congestive heart failure) Family history of hypertension Father Family history of hypertension Family history of myocardial infarction Social History (Updated 04/11/24 @ 14:55 by Darya Alexander) Within the past year, how often did you have a drink containing alcohol: never Score interpretation: A score less than 3 is consistent with normal alcohol consumption. Smoking status: Never smoker Non-prescribed substance use: denies use Previous occupational history: retired Highest level of school completed/degree received: Associate degree: occupational, technical, vocational program Are you now , , , , never or living with a partner: In a typical week, how many times do you talk on the telephone with family, friends, or neighbors: 3 or more times per week How often do you get together with friends or relatives: 3 or more times per week How often do you attend adventism or orthodox services: 4 or more times per year Do you belong to any clubs or organizations such as adventism groups unions, [employer] or athletic groups, or school groups: no Total score: 2 Score interpretation: A score of greater than or equal to 2 indicates the lowest level of social isolation. Little interest or pleasure in doing things: not at all Feeling down, depressed, or hopeless: not at all Feel stressed/tense/nervous/anxious/difficulty sleeping: not at all Do you think of yourself as: straight/heterosexual Gender Identity: female Meds Home Medications and Allergies Home Medications ?Medication ?Instructions ?Recorded ?Confirmed ?Type fluticasone fur. 200 mcg-umeclid 1 inh inhalation Q24H COPD 04/10/23 04/11/24 History 62.5 mcg-vilant 25 mcg inhalat.powder (Trelegy Ellipta) magnesium oxide 400 mg (241.3 mg 400 mg PO DAILY 04/10/23 04/11/24 History magnesium) tablet omeprazole 20 mg capsule,delayed 20 mg PO BID 04/10/23 04/11/24 History release montelukast 10 mg tablet 10 mg PO DAILY 09/14/23 04/11/24 History pramipexole 0.25 mg tablet 0.25 mg PO QPM 09/14/23 04/11/24 History (Mirapex) paroxetine HCl 30 mg tablet 30 mg PO QDAY 11/25/23 04/11/24 History pregabalin 75 mg capsule 75 mg PO BID 11/25/23 04/11/24 History solifenacin 10 mg tablet 10 mg PO QDAY 11/25/23 04/11/24 History trazodone 100 mg tablet 100 mg PO .qhs 11/25/23 04/11/24 History guaifenesin 600 mg tablet, 600 mg PO BID 10 days #20 tabs 12/02/23 04/11/24 Rx extended release 12 hr (Mucus Relief ER) baclofen 10 mg tablet 10 mg PO Q8H 02/03/24 04/11/24 History Allergies Allergy/AdvReac Type Severity Reaction Status Date / Time No Known Drug Allergies Allergy Verified 02/19/24 08:57 Exam Constitutional Vital Signs, click to edit/add: Last Vital Signs Temp 98.0 F 04/12/24 04:21 Pulse 97 H 04/12/24 11:22 Resp 18 04/12/24 11:22 BP 134/69 04/12/24 04:21 Pulse Ox 93 L 04/12/24 11:22 O2 Del Method Nasal Cannula 04/12/24 11:22 O2 Flow Rate 3 04/12/24 11:22 Documenting provider has reviewed patient's vital signs: yes Common normals: no apparent distress Other: Appears to be near her baseline status HENMT Other: Wearing nasal cannula. No oral candidiasis. Chest Common normals: inspection of chest normal and palpation of chest normal (no palpable rhonchi) Chest: symmetrical chest wall rise Respiratory Other: Scattered rhonchi - about her baseline. Cardio Rate: regular rate Rhythm: regular rhythm GI Inspection: normal to inspection and central obesity Extremity Other: Trace BLE edema Neuro Motor exam: no tremor noted and no fasciculations Psych Attitude: calm and engaged Results Laboratory Findings Abnormal lab findings: Abnormal Labs 04/11/24 04/11/24 04/12/24 15:52 20:25 04:13 WBC 11.7 H RBC 4.14 L MPV 9.3 L Neut % (Auto) 91.7 H Lymph % (Auto) 15.7 L 5.0 L [place] % (Auto) 0.8 L Eos % (Auto) 0.0 L Neut # (Auto) 8.6 H 8.9 H Lymph # (Auto) 0.5 L [place] # (Auto) 0.1 L Abs Immat Gran (auto) 0.19 H 0.22 H Imm/Tot Granulo (auto) 1.6 H 2.3 H Creatinine 1.23 H Est GFR ( Amer) 53 L Est GFR (Non-Af Amer) 58 L 44 L Glucose 278 H Calcium 8.4 L Total Bilirubin 0.1 L AST 9 L 7 L Total Protein 6.0 L Albumin 2.8 L 3.0 L POC Glucose 290 H 04/12/24 04/12/24 07:53 11:38 WBC RBC MPV Neut % (Auto) Lymph % (Auto) [place] % (Auto) Eos % (Auto) Neut # (Auto) Lymph # (Auto) [place] # (Auto) Abs Immat Gran (auto) Imm/Tot Granulo (auto) Creatinine Est GFR ( Amer) Est GFR (Non-Af Amer) Glucose Calcium Total Bilirubin AST Total Protein Albumin POC Glucose 236 H 306 H Assessment and Plan Assessment and Plan (1) Acute exacerbation of chronic obstructive pulmonary disease: Assessment and Plan: Lifelong non-smoker, but developed COPD. Patient is improving at this time. Exacerbated by bronchitis. She is on Trelegy 100 at home, along with pulmonary toilet for critical illness myopathy. Discussed long-term prednisone. 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 Will see if I can tweak her medication therapy outpatient further in order to avoid chronic prednisone. (2) Bronchitis: Assessment and Plan: No infiltrates to suggest pneumonia are present on chest CT. (3) Critical illness myopathy: Assessment and Plan: Remains symptomatic since having COVID-19 last summer. She has done better with vest in addition to saline nebs + PEP use. Continue pulmonary toilet. (4) Chronic respiratory failure with hypoxia: Assessment and Plan: @ baseline (5) Other pulmonary collapse: Assessment and Plan: Dynamic airway collapse noted of posterior tracheal wall & main bronchi. She does not have GURWINDER according to Medicare 4% rule, so did not qualify for CPAP. (6) Morbid obesity: Assessment and Plan: BMI 40. She has lost some weight - BMI was 44.4 at last outpatient appointment. Plan She has appointment scheduled 06/12/2024 @ 8:00. She can contact the office to see if there are any openings sooner or be on a cancellation list to be seen, but office slots are very tight currently.
--- NOTE | 2024-04-12 11:58 | CM.NOTE ---
Rounds made with Dr. Ohara. Plan for discharge today. Follow up with [facility] and PCP in a week. Ms. Champion verbalizes understanding.
--- NOTE | 2024-04-12 12:10 | P.HP_ITS ---
HPI H&P: HPI History of Present Illness Chief complaint: EXASPERATION ASTHMA Narrative: HPI and Hospital Course: 68-year-old female was seen in office yesterday and was admitted directly to the hospital for asthma exacerbation and failure response with outpatient therapy. Patient was originally seen about 2 weeks for worsening shortness of breath, cough, dyspnea for which she was prescribed oral prednisone. She had a chest x- ray performed that showed possible right lower lobe pneumonia for which she was prescribed oral Levaquin. She was subsequently followed up in a week with improvement in her symptoms. Patient reports that she was feeling better then she started to feel congested difficulty expectorating sputum along with worsening shortness of breath. Her oxygen requirement did not change but given her recent antibiotic therapy, treatment for asthma exacerbation, she was admitted for observation overnight for close monitoring, systemic steroids, aggressive pulmonary toilet. CT chest was ordered that did not show any consolidative process. Patient is feeling better today and feels that her lungs are more open and she does not feel as congested as she was before. She was also seen in consultation by pulmonology and discuss chronic long-term oral prednisone therapy for her severe persistent asthma. Patient is stable for discharge medically on oral prednisone and azithromycin. Opioid HPI Opioid Management Most Recent Opioid Data: Last Pain Scale 10 02/19/24 08:52 Last Pain Intensity 0 02/05/24 08:27 Last Pain Assessment 04/12/24 11:54 Last ORT Total Score 1 04/11/24 15:11 Last ORT Risk Category Low Risk 04/11/24 15:11 Review of Systems ROS Status of ROS 10 or more systems reviewed and unremark able except as noted in history and below [facility] PFS Medical History Hypomagnesemia ?E83.42 - Hypomagnesemia (ICD-10) Acute hypokalemia ?E87.6 - Hypokalemia (ICD-10) Pneumonia ?J18.9 - Pneumonia, unspecified organism (ICD-10) Acute exacerbation of chronic obstructive pulmonary disease ?J44.1 - Chronic obstructive pulmonary disease with (acute) exacerbation (ICD-10) CAD (coronary artery disease) ?I25.10 - Atherosclerotic heart disease of [place] coronary artery without angina pectoris (ICD-10) Chronic heart failure with preserved ejection fraction (HFpEF) ?I50.32 - Chronic diastolic (congestive) heart failure (ICD-10) Hypertension ?I10 - Essential (primary) hypertension (ICD-10) Myofascial pain ?M79.18 - Myalgia, other site (ICD-10) Greater trochanteric bursitis ?M70.60 - Trochanteric bursitis, unspecified hip (ICD-10) Osteoarthritis of right hip ?M16.11 - Unilateral primary osteoarthritis, right hip (ICD-10) Lumbar spondylosis ?M47.816 - Spondylosis without myelopathy or radiculopathy, lumbar region (ICD-10) Lumbar postlaminectomy syndrome ?M96.1 - Postlaminectomy syndrome, not elsewhere classified (ICD-10) Lumbar stenosis with neurogenic claudication ?M48.062 - Spinal stenosis, lumbar region with neurogenic claudication (ICD- 10) Depression ?F32.A - Depression, unspecified (ICD-10) Chronic low back pain ?M54.50 - Low back pain, unspecified (ICD-10) ?G89.29 - Other chronic pain (ICD-10) Hypoxia ?R09.02 - Hypoxemia (ICD-10) Heart murmur ?R01.1 - Cardiac murmur, unspecified (ICD-10) Chronic obstructive pulmonary disease ?J44.9 - Chronic obstructive pulmonary disease, unspecified (ICD-10) Asthma ?J45.909 - Unspecified asthma, uncomplicated (ICD-10) Surgical History Status post hip surgery ?Z98.890 - Other specified postprocedural states (ICD-10) H/O foot surgery ?Z98.890 - Other specified postprocedural states (ICD-10) H/O tubal ligation ?Z98.51 - Tubal ligation status (ICD-10) History of lumbar fusion ?Z98.1 - Arthrodesis status (ICD-10) Family History (Updated 04/11/24 @ 14:54 by Darya Alexander) Mother Family history of CHF (congestive heart failure) Family history of hypertension Father Family history of hypertension Family history of myocardial infarction Social History (Updated 04/11/24 @ 14:55 by Darya Alexander) Within the past year, how often did you have a drink containing alcohol: never Score interpretation: A score less than 3 is consistent with normal alcohol consumption. Smoking status: Never smoker Non-prescribed substance use: denies use Previous occupational history: retired Highest level of school completed/degree received: Associate degree: occupational, technical, vocational program Are you now , , , , never or living with a partner: In a typical week, how many times do you talk on the telephone with family, friends, or neighbors: 3 or more times per week How often do you get together with friends or relatives: 3 or more times per week How often do you attend sikh or uatsdin services: 4 or more times per year Do you belong to any clubs or organizations such as sikh groups unions, [employer] or athletic groups, or school groups: no Total score: 2 Score interpretation: A score of greater than or equal to 2 indicates the lowest level of social isolation. Little interest or pleasure in doing things: not at all Feeling down, depressed, or hopeless: not at all Feel stressed/tense/nervous/anxious/difficulty sleeping: not at all Do you think of yourself as: straight/heterosexual Gender Identity: female Meds Home Medications and Allergies Home Medications ?Medication ?Instructions ?Recorded ?Confirmed ?Type fluticasone fur. 200 mcg-umeclid 1 inh inhalation Q24H COPD 04/10/23 04/11/24 History 62.5 mcg-vilant 25 mcg inhalat.powder (Trelegy Ellipta) magnesium oxide 400 mg (241.3 mg 400 mg PO DAILY 04/10/23 04/11/24 History magnesium) tablet omeprazole 20 mg capsule,delayed 20 mg PO BID 04/10/23 04/11/24 History release montelukast 10 mg tablet 10 mg PO DAILY 09/14/23 04/11/24 History pramipexole 0.25 mg tablet 0.25 mg PO QPM 09/14/23 04/11/24 History (Mirapex) paroxetine HCl 30 mg tablet 30 mg PO QDAY 11/25/23 04/11/24 History pregabalin 75 mg capsule 75 mg PO BID 11/25/23 04/11/24 History solifenacin 10 mg tablet 10 mg PO QDAY 11/25/23 04/11/24 History trazodone 100 mg tablet 100 mg PO .qhs 11/25/23 04/11/24 History guaifenesin 600 mg tablet, 600 mg PO BID 10 days #20 tabs 12/02/23 04/11/24 Rx extended release 12 hr (Mucus Relief ER) baclofen 10 mg tablet 10 mg PO Q8H 02/03/24 04/11/24 History Allergies Allergy/AdvReac Type Severity Reaction Status Date / Time No Known Drug Allergies Allergy Verified 02/19/24 08:57 Exam Constitutional Vital Signs, click to edit/add: Last Vital Signs Temp 98.0 F 04/12/24 04:21 Pulse 111 H 04/12/24 11:56 Resp 18 04/12/24 11:22 BP 134/69 04/12/24 04:21 Pulse Ox 93 L 04/12/24 11:22 O2 Del Method Nasal Cannula 04/12/24 11:22 O2 Flow Rate 3 04/12/24 11:22 Documenting provider has reviewed patient's vital signs: yes Common normals: no apparent distress and oriented x3 General appearance: cooperative, ill appearing and frail appearing [facility] Common normals: normocephalic and head/scalp atraumatic Head and scalp: normocephalic and atraumatic Eye Common normals: conjunctivae normal and no scleral icterus Conjunctiva: conjunctiva(e) normal Respiratory Common normals: normal respiratory effort Effort & inspection: able to speak in complete sentences Other: Coarse breath sounds. No significant wheezing on exam Cardio Common normals: regular rate, S1 normal heart sound and S2 normal heart sound Rate: regular rate Heart sounds: S1 normal and S2 normal GI Common normals: Normal to inspection, nondistended, normoactive bowel sounds present, soft to palpation, non-tender and no hepatosplenomegaly Palpation: soft and no hepatosplenomegaly Extremity Common normals: no clubbing, cyanosis or edema Neuro Common normals: oriented x3, moves all extremities and no focal motor deficits Psych Common normals: mental status grossly normal, denies hallucinations, denies homicidal ideation and denies suicidal ideation Results Labs Labs: Short CBC 04/11/24 04/12/24 Range/Units 15:52 04:13 WBC 11.7 H 9.7 (4.0-11.0) 10^3/uL Hgb 12.6 13.1 (12.0-16.0) g/dL Hct 39.1 42.0 (36.0-48.0) % Plt Count 226 249 (150-450) 10^3/uL BMP 04/11/24 04/12/24 15:52 04:13 Sodium 143 141 Potassium 3.6 3.7 Chloride 106 104 Carbon Dioxide 30.3 23.7 BUN 14.0 15.0 Creatinine 0.96 1.23 H Glucose 99 278 H Calcium 8.4 L 8.8 Liver Function 04/11/24 04/12/24 Range/Units 15:52 04:13 Total Bilirubin 0.2 0.1 L (0.2-1.0) mg/dL AST 9 L 7 L (15-37) U/L ALT 18 19 (14-59) U/L Alkaline Phosphatase 82 85 (46-116) U/L Albumin 2.8 L 3.0 L (3.4-5.0) g/dL Assessment and Plan Assessment and Plan (1) Severe persistent asthma with exacerbation: Assessment and Plan: Recently treated as outpatient with oral prednisone. She is feeling better compared to yesterday. Will discharge on oral prednisone. Follow-up with pulmonology as outpatient and in my office in 1 week. (2) Bronchitis: Assessment and Plan: Bronchitis noted on CT chest. Will discharge on oral azithromycin. (3) Chronic heart failure with preserved ejection fraction (HFpEF): Assessment and Plan: Euvolemic. Monitor. (4) Chronic respiratory failure with hypoxia: Assessment and Plan: On 3 L of oxygen at baseline. Continue with oxygen as before (5) Morbid obesity: Assessment and Plan: Morbid obesity with BMI of 40. It is difficult for her to lose weight with chronic illness/recurrent prednisone use and limited functional capacity. However it is definitely contributing to her respiratory illness and she would benefit from weight loss. Will discuss this as outpatient. (6) Chronic low back pain: Assessment and Plan: Follows pain clinic as outpatient. Pain is well-controlled. Monitor. Qualifiers: Back pain laterality: midline Sciatica presence: without sciatica Qualified Code(s): M54.50 - Low back pain, unspecified; G89.29 - Other chronic pain Plan Stable for discharge medically on p.o. prednisone. Will follow-up with me in office in 1 week. Follow-up with pulmonology as before.
--- NOTE | 2024-04-12 12:30 | SWNOTE1 ---
JAZMIN sent over dc med rec, dc summary, CRF, and PT note from today. Pt is discharging home with Yu MCKAY.
== END 2024-04-12 12:56 | disposition home health service (06) ==
PROVIDERS: Admitting Provider Internal Medicine; PCP Internal Medicine; Visit Provider Internal Medicine
DX: J45.51 Severe persistent asthma with (acute) exacerbation (principal); J44.1 Chronic obstructive pulmonary disease with (acute) exacerbation; E66.01 Morbid (severe) obesity due to excess calories; Z68.41 Body mass index [BMI] 40.0-44.9, adult; G89.29 Other chronic pain; M54.50 Low back pain, unspecified; J96.11 Chronic respiratory failure with hypoxia; Z99.81 Dependence on supplemental oxygen; I50.32 Chronic diastolic (congestive) heart failure; J44.9 Chronic obstructive pulmonary disease, unspecified; G72.81 Critical illness myopathy; Z86.16 Personal history of COVID-19
CPT/HCPCS: 36415; 71250; 80053; 82948; 85025; 94640; 94667; 94668; 94761; 96372; 96374; 96376; G0378; G0379; J2919

== ENCOUNTER 2024-04-15 08:47 | Day surgery (SDC) | payer OTHER, SELFPAY ==
[2024-04-15 09:21] VITALS: BP 148/85; PULSE 72; TEMP 37; O2SAT 96
[2024-04-15] MEDS: BUPIVACAINE HCL 0.25% PF 25 MG/10 ML VIAL 8 ML INJ (10:14)
[2024-04-15 10:15] VITALS: BP 164/73; BP 172/86; PULSE 71; PULSE 72; O2SAT 95; O2SAT 96
--- NOTE | 2024-04-15 10:16 | W.PM.PROCNOT ---
Date of procedure: 04/15/24 Pre-op diagnosis: Pain due to thoracic spondylosis without myelopathy Post-op diagnosis: same as pre-op Procedure: Procedure: Bilateral T7-8, 8-9 medial branch block Medications: Bupivacaine 0.25% 6cc The patient was seen and examined in the preoperative holding area.? An informed consent was obtained and placed on the chart.? The patient was brought to the medical procedure unit and placed in the prone position.? A timeout was completed verifying correct patient, procedure site, positioning, plan, and special equipment.? Using aseptic technique, the needle was placed at left T7. Under direct fluoroscopic visualization a Quincke-tipped spinal needle was advanced to the junction of the superior articulating process with the transverse process at the designated medial branch segment.? Preceded by negative aspiration, the above-mentioned injectate was placed in 1 mL aliquots.? The procedure was repeated at left T8, 9.? The needle was removed and insertion site was covered. The same procedure, at the same levels, was completed on the right side. The patient was taken to the postprocedural recovery area and monitored for an appropriate length of time before found suitable for discharge in the company of a responsible adult. Anesthesia: Local Surgeon: Jayshree Vargas Pathology: none sent Condition: stable Disposition: no change
== END 2024-04-15 10:20 | disposition home or self-care (01) ==
LOC: SURGOUT 08:48
PROVIDERS: PCP Internal Medicine; Visit Provider Anesthesiology
DX: M47.814 Spondylosis without myelopathy or radiculopathy, thoracic region (principal)
CPT/HCPCS: 64490; 64491

== ENCOUNTER 2024-04-24 08:26 | Outpatient (OUT) | payer OTHER, SELFPAY ==
--- NOTE | 2024-04-24 08:25 | P.CN_ITS ---
Consult Note: HPI Data of Consult Patient: known to practice within the last 3 years Requesting Physician: Violet Saucedo NP Primary Care Provider: Shaikh Lev MD Consult Narrative Reason for consult: f/u Narrative: Diana Champion a pleasant 68 year old female presents for evaluation and management of middle and low back pain. Today rating pain 0/10 in low back, pain in upper back 3-4/10 sharp pressure increasing with standing walking activity and cold weather, increased to moderate to severe. PT has failed to benefit from PT and conservative measures in the past, hx of L5-S1 fusion. Patient needs a right ELZA but is unable to do that at this time. Patient is following with pulmonology and PCP for pneumonia and chronic lung disease, on continuous o2. Patient recently underwent thoracic xray which is consistent with moderate degenerative changes and multilevel facet arthropathy. Recently underwent bilateral T7-8 T8-9 MBB #1 with >80% improvement in pain and functional ability, noticed improvement in ability to stand and tolerate activity the first four hours following the injection. cc:: CC: Violet Saucedo NP Review of Systems ROS Status of ROS 10 or more systems reviewed and unremark able except as noted in history and below Musculoskeletal Reports: back pain PFSH PFSH Medical History Hypomagnesemia ?E83.42 - Hypomagnesemia (ICD-10) Acute hypokalemia ?E87.6 - Hypokalemia (ICD-10) Pneumonia ?J18.9 - Pneumonia, unspecified organism (ICD-10) Acute exacerbation of chronic obstructive pulmonary disease ?J44.1 - Chronic obstructive pulmonary disease with (acute) exacerbation (ICD-10) CAD (coronary artery disease) ?I25.10 - Atherosclerotic heart disease of [place] coronary artery without angina pectoris (ICD-10) Chronic heart failure with preserved ejection fraction (HFpEF) ?I50.32 - Chronic diastolic (congestive) heart failure (ICD-10) Hypertension ?I10 - Essential (primary) hypertension (ICD-10) Myofascial pain ?M79.18 - Myalgia, other site (ICD-10) Greater trochanteric bursitis ?M70.60 - Trochanteric bursitis, unspecified hip (ICD-10) Osteoarthritis of right hip ?M16.11 - Unilateral primary osteoarthritis, right hip (ICD-10) Lumbar spondylosis ?M47.816 - Spondylosis without myelopathy or radiculopathy, lumbar region (ICD-10) Lumbar postlaminectomy syndrome ?M96.1 - Postlaminectomy syndrome, not elsewhere classified (ICD-10) Lumbar stenosis with neurogenic claudication ?M48.062 - Spinal stenosis, lumbar region with neurogenic claudication (ICD- 10) Depression ?F32.A - Depression, unspecified (ICD-10) Chronic low back pain ?M54.50 - Low back pain, unspecified (ICD-10) ?G89.29 - Other chronic pain (ICD-10) Hypoxia ?R09.02 - Hypoxemia (ICD-10) Heart murmur ?R01.1 - Cardiac murmur, unspecified (ICD-10) Chronic obstructive pulmonary disease ?J44.9 - Chronic obstructive pulmonary disease, unspecified (ICD-10) Asthma ?J45.909 - Unspecified asthma, uncomplicated (ICD-10) Surgical History Status post hip surgery ?Z98.890 - Other specified postprocedural states (ICD-10) H/O foot surgery ?Z98.890 - Other specified postprocedural states (ICD-10) H/O tubal ligation ?Z98.51 - Tubal ligation status (ICD-10) History of lumbar fusion ?Z98.1 - Arthrodesis status (ICD-10) Family History Mother Family history of CHF (congestive heart failure) Family history of hypertension Father Family history of hypertension Family history of myocardial infarction Social History Within the past year, how often did you have a drink containing alcohol: never Score interpretation: A score less than 3 is consistent with normal alcohol consumption. Smoking status: Never smoker Non-prescribed substance use: denies use Previous occupational history: retired Highest level of school completed/degree received: Associate degree: occupational, technical, vocational program Are you now , , , , never or living with a partner: In a typical week, how many times do you talk on the telephone with family, friends, or neighbors: 3 or more times per week How often do you get together with friends or relatives: 3 or more times per week How often do you attend protestant or roman catholic services: 4 or more times per year Do you belong to any clubs or organizations such as protestant groups unions, fraternal or athletic groups, or school groups: no Total score: 2 Score interpretation: A score of greater than or equal to 2 indicates the lowest level of social isolation. Little interest or pleasure in doing things: not at all Feeling down, depressed, or hopeless: not at all Feel stressed/tense/nervous/anxious/difficulty sleeping: not at all Do you think of yourself as: straight/heterosexual Gender Identity: female Meds Home Medications and Allergies Home Medications ?Medication ?Instructions ?Recorded ?Confirmed ?Type fluticasone fur. 200 mcg-umeclid 1 inh inhalation Q24H COPD 04/10/23 04/15/24 History 62.5 mcg-vilant 25 mcg inhalat.powder (Trelegy Ellipta) magnesium oxide 400 mg (241.3 mg 400 mg PO DAILY 04/10/23 04/15/24 History magnesium) tablet omeprazole 20 mg capsule,delayed 20 mg PO BID 04/10/23 04/15/24 History release montelukast 10 mg tablet 10 mg PO DAILY 09/14/23 04/15/24 History pramipexole 0.25 mg tablet 0.25 mg PO QPM 09/14/23 04/15/24 History ([facility]ape[employer]) paroxetine HCl 30 mg tablet 30 mg PO QDAY 11/25/23 04/15/24 History pregabalin 75 mg capsule 75 mg PO BID 11/25/23 04/15/24 History solifenacin 10 mg tablet 10 mg PO QDAY 11/25/23 04/15/24 History trazodone 100 mg tablet 100 mg PO .qhs 11/25/23 04/15/24 History guaifenesin 600 mg tablet, 600 mg PO BID 10 days #20 tabs 12/02/23 04/15/24 Rx extended release 12 hr (Mucus Relief ER) baclofen 10 mg tablet 10 mg PO Q8H 02/03/24 04/15/24 History azithromycin 250 mg tablet 250 mg PO DAILY #4 tabs 04/12/24 04/15/24 Rx prednisone 20 mg tablet 20 mg PO BID #10 tabs 04/12/24 04/15/24 Rx Allergies Allergy/AdvReac Type Severity Reaction Status Date / Time No Known Drug Allergies Allergy Verified 04/15/24 09:27 Exam Constitutional Documenting provider has reviewed patient's vital signs: yes Common normals: no apparent distress, oriented x3, healthy appearing, alert and well nourished General appearance: cooperative HENMT Common normals: normocephalic, hearing grossly normal bilaterally and moist oral mucous membranes Head and scalp: normocephalic Eye Common normals: PERRL Pupil: PERRL Neck & C-Spine Common normals: full ROM General: normal visual inspection Chest Common normals: inspection of chest normal Respiratory Common normals: normal respiratory effort, no retractions and no use of accessory muscles Effort & inspection: actively coughing Other: productive cough without SOB Back & Pelvis Thoracic spine/upper back: ROM limited, pain with ROM and thoracic spinal tenderness Lumbar spine/lower back: ROM limited, pain with ROM and straight leg raise negative bilaterally Other: sensation intact BLE weakness in BLE 4/5 multilevel thoracic facet tenderness, no trigger points noted positive facet loading, most significant over bilateral T7,8 T8,9 Extremity Common normals: normal to inspection and full ROM Right lower extremity: hip joint Other: pain with internal and external rotation. Weakness to BLE 4/5 strength Neuro Common normals: oriented x3, CN's II-XII intact bilaterally, moves all extremiti es, no focal motor deficits, no sensory deficits noted and deep tendon reflexes 2+ bilaterally Sensorium/orientation: alert Gait (neuro): assistive device used other (wheelchair) Motor exam: strength 5/5 throughout and no movement abnormalities noted Psych Common normals: mental status grossly normal, thought process normal, cooperative, affect normal, speech normal and activity/motor behavior normal Speech: normal speech Thought process: normal thought process Results Additional Findings Additional findings: If on a controlled substance or opioids, I have checked an [place] report on this patient and there are no aberrancies noted in the prescribing history.??If on a controlled substance or opioid a drug screen was completed and reviewed within the last year, and if there has not been a drug screen completed we ordered one today to monitor higher risk, state monitored pain medication use. As part of providing excellent, safe, comprehensive care, the following was completed at our patient's visit: 1. A medication reconciliation and review to ensure accurate knowledge of current/active medications, including asking our patients to inform us about any [id number] medications or herbal remedies/nutritional supplements/alternative remedies. 2. A review to specifically ensure our patients have had annual screening for screening for depression, screening for tobacco use, and screening for unhealthy alcohol use. For concerning screenings had a discussion with the patient, provided patient education, and recommended follow-up with primary care provider when appropriate. If patient noted with a risk of falling, they received education on strength, gait, and balance training to prevent future risk of falling. Assessment and Plan Assessment and Plan (1) Thoracic spondylosis: Assessment and Plan: The patient has had over 3 months of moderate to severe back pain with functional impairment and inadequate response to conservative care including NSAIDS (unless there are contraindication such as concurrent blood thinners), multiple oral or topical pain medications, and home exercise program/physical therapy.? Patient has completed >6 weeks of guided home exercise program and/or formal physical therapy program without relief of their symptoms.? I have reviewed the imaging of the thoracic spine and no red flags were identified.? We discussed the risks and benefits of the procedure with the patient, and we are NOT planning on using sedation as outlined in the guidelines from Medicare unless there is a documented reason that sedation would be strongly recommended.?? The procedure will be completed with fluoroscopic guidance.? (2) Lumbar stenosis with neurogenic claudication: Assessment and Plan: improved (3) Lumbar radiculopathy: Assessment and Plan: resolved (4) Lumbar spondylosis: Assessment and Plan: stable (5) Failed back syndrome: (6) History of lumbar fusion: (7) Myofascial pain: Assessment and Plan: improved with baclofen 10mg TID PRN (8) Osteoarthritis of right hip: Qualifiers: Osteoarthritis type: primary Qualified Code(s): M16.11 - Unilateral primary osteoarthritis, right hip (9) Encounter for long-term opiate analgesic use: (10) On home oxygen therapy: Plan bilateral T7-8 T8-9 facet medial branch block x2 under fluoroscopy working towards RFA continue f/u with PCP and pulmonology continue baclofen 10mg TID PRN for myofascial pain continue current medications, tolerating well without side effects. f/u after each injection
--- OUTSIDE RECORDS SUMMARY | 2024-04-24 08:42 | XMS_ITS ---
Patient Summarization (C-CDA 2.1 CCD) Created on: April 24, 2024 DIANA CHAMPION : 1955 Sex: Female Author Organization Sample organization Care Team Providers Care Speedometer Mechanic Name Role Phone Steph Collier Attending Provider Unavailable Chantel Rainey Primary Care Provider Unavailabl e Joana, Herberth Attending Provider Unavailable Unavailable Primary Care Provider Unavailabl e UNKNOWN, PHYSICIAN Referring Unavailable JOO LINN Attending Unavailable JOO LINN Admitting Unavailable UNKNOWN, PHYSICIAN Primary Care Unavailable Rena Hurd Unavailable Joana, Herberth Unavailable Gato Domingo Unavailable [phone] Steph Collier Attending Provider MD Gato [...] e FAWWAD, SAUNDERS H Primary Care Unavailable FILLMORE, DR BRITTANY Elizondo Consulting Unavailable ZIEBBETH, DR [...] Unavailable FAWWAD, SAUNDERS H Consulting Unavailable ELTAWYATT, MANIAB Attending Unavailable JOO LINN Attending Unavailable Fawwad, Saunders Primary Care Unavailable Gato Domingo Attending UnavailGato Chatterjee Admitting Unavailabl e Alicia DRAPER, Andrius Johnson Attending Unavailable Giedraitis , Andrius Vytautclara Attending Unavailable Giedraitis , Andrius Vytautas Attending Unavailable Giedraitis , Andrius Vytjulito Attending Unavailable Gilorenzaitis , Andrius Alex Attending Unavailable Steph Collier Attending Provider FAWWAD, [...] Translations: [fentanyl] Drug Allergy 07-07-20 17 Hallucinating [facility] (2 sources) linezolid; Translations: [LINEZOLID] Drug Allergy 03-17-20 20 [facility] (20 sources) Vancomycin; Translations: [VANCOMYCIN] Drug Allergy 03-17-20 Unknown, Unknown Reaction [facility] (12 sources) DENIES METAL SENSITITIVITY Propensity to adverse reactions 03-14-20 Unknown, Unknown Reaction [facility] Encounters Encounter Date Encounter Type Care Provider Facility Start: 04-17-2024 End: 04-17-2024 ambulatory SAUNDERS FAWWAD Not Available Start: 04-11-2024 End: 04-11-2024 ambulatory SAUNDERS FAWWAD Not Available Start: 04-03-2024 End: 04-03-2024 ambulatory SAUNDERS FAWWAD Not Available Start: 03-27-2024 End: 03-27-2024 ambulatory SAUNDERS FAWWAD Not Available Start: 03-14-2024 End: 03-14-2024 ambulatory Steph Collier Work Phone: [facility] Work Phone: Start: 03-14-2024 End: 03-14-2024 Patient encounter procedure Steph Collier Work Phone: [facility] Work Phone: Start: 03-06-2024 Non-patient / Non-visit Ste[facility] Collier [facility] Work Phone: Start: 02-26-2024 End: 02-26-2024 ambulatory SAUNDERS FAWWAD Not Available Start: 02-19-2024 End: 02-20-2024 ambulatory Jayshree Vargas MD Facility: [facility] Start: 02-15-2024 End: 02-15-2024 ambulatory ROSHNI GREENZ Not Available Start: 01-25-2024 End: 01-25-2024 ambulatory [...] 09-07-2023 End: 09-07-2023 ambulatory Herberth Joana Other [facility] Other Start: 09-07-2023 Telephone encounter Herberth Joana [facility] Start: 08-28-2023 End: 08-28-2023 ambulatory Herberth Joana Other [facility] Other Start: 08-28-2023 Telephone encounter Herberth Joana [facility] Start: 08-21-2023 End: 08-22-2023 ambulatory Andlarisa Vargas MD Facility: [facility] Start: 08-17-2023 End: 08-17-2023 ambulatory Herberth Joana Other [facility] Other Start: 08-17-2023 Office outpatient visit 25 minutes Herberth Joana [facility] Start: 05-08-2023 End: 05-08-2023 ambulatory MANIAB LOYDA [facility] Start: 04-04-2023 End: 04-04-2023 ambulatory SHAIKH Dimitry OHARA Facility:[facility] Start: 03-24-2023 End: 03-25-[address] STEPH GRANADOS Facility:[facility] Start: 03-23-2023 ambulatory JOO LINN [facility] Start: 03-02-2023 End: 03-02-2023 ambulatory Herberth Joana Other [facility] Other Start: 03-02-2023 Office outpatient visit 25 minutes Herberth Joana [facility] Start: 02-25-2023 End: 02-26-2023 ambulatory HERBERTH JOANA Facility:[facility] Start: 02-22-2023 End: 02-23-2023 ambulatory BO MCCLAIN . Facility:[facility] Start: 12-15-2022 End: 12-16-[address] JACK HALL . Facility:[facility] Start: 12-08-2022 End: 12-08-2022 ambulatory Shaikh Lev Facility:[facility] Start: 12-08-2022 End: 12-08-2022 Admission to same day surgery center MD Shaikh Ohara Work Phone: [facility] Work Phone: Start: 12-08-2022 End: 12-08-2022 ambulatory MD Shaikh Ohara Work Phone: [facility] Work Phone: Start: 11-11-2022 End: 11-11-[address] JACK HALL . Facility:[facility] Start: 11-09-2022 End: 11-09-2022 ambulatory Gilma Trent Other [facility] Other Start: 11-09-2022 Telephone encounter Gilma Gonzalezs [facility] Start: 08-19-2022 End: 08-20-2022 ambulatory HERBERTH JOANA Facility:[facility] Start: 08-09-2022 End: 08-09-2022 ambulatory Herberth Joana Other [facility] Other Start: 08-09-2022 Office outpatient visit 10 minutes Herberth Joana [facility] Start: 08-09-2022 Telephone encounter Herberth Joana [facility] Start: 08-05-2022 Telephone encounter Herberth Joana [facility] Start: 08-05-2022 End: 08-06-2022 ambulatory HERBERTH JOANA [place] Other Start: 07-08-2022 End: 07-08-2022 ambulatory Gato Domingo Other [facility] Other Start: 07-08-2022 Telephone encounter Gato Cesar ck [facility] Start: 07-05-2022 End: 07-06-2022 ambulatory SAUNDERS H FAWWAD Facility:[facility] Start: 06-08-2022 End: 06-09-2022 ambulatory SAUNDERS H FAWWAD Facility:[facility] Start: 06-07-2022 End: 06-07-2022 ambulatory SAUNDERS H FAWWAD Facility:[facility] Start: 01-24-2022 End: 01-25-2022 ambulatory PHYSICIAN UNKNOWN Facility:[facility] Start: 11-17-2021 End: 11-17-2021 ambulatory Herberth Joana Other [facility] Other Start: 11-17-2021 Office outpatient visit 15 minutes Herberth Joana [facility] Start: 08-30-2021 Office outpatient visit 15 minutes Rena Ginty [facility] Start: 09-11-2020 End: 09-11-2020 Chart abstracting Miguelito Buck Work Phone: Hematology/Oncology Start: 09-11-2020 End: 09-11-2020 Patient encounter procedure External Provider [facility] Start: 09-11-2020 Results Only External Provider Exter [facility] Start: 09-30-2019 End: 09-30-2019 Patient encounter procedure Steph Collier [facility] [place] Start: 07-07-2017 End: 07-07-2017 Admission to day surgery Steph [facility] Start: 05-24-2004 Evaluation and management of inpatient Steph Collier [facility] [place] Start: 04-26-2004 [facility] [place] Goals Date Patient Goal Desired Activity /State Immunizations Immunization Date Immunization Notes Care Provider Henrietta charles 07-18-2018 Depo-Medrol 40 mg Rena Gint y Other [facility] Other 01-31-2018 Depo-Medrol 40 mg Rena Gint y Other [facility] Other 08-09-2017 influenza virus vaccine, unspecified formulation Steph Courtney Phone: [facility] 08-09-2017 influenza, seasonal, injectable, preservative free Rena Ginty Other [facility] Other Medications Current Medications Medication Drug Class(es) Dates Sig (Normalized) Sig (Original) 30 ACTUAT fluticasone furoate 0.2 MG/ACTUAT / umeclidinium 0.0625 MG/ACTUAT / vilanterol 0.025 MG/ACTUAT Dry Powder Inhaler [Trelegy] (2 sources) take 1 puff(s) by inhalation once daily Trelegy Ellipta 200-62.5-25 MCG/INH 1 puff Inhalation Once a day Active [id number] 200 actuat albuterol 0.09 mg/actuat metered dose [...] 14, 2024 12:00am Start: 12-08-2022 End: 03-14-2024 Wceavllejod-Svodvntcv-Zzwgfl er (Trelegy Ellipta) 200-62.5-25 mcg blister with [...] 400 mg oral tablet (8 sources) Start: 024 take 400 mg by mouth once daily Magnesium Oxide Active 400 MG PO Daily March 14, 2024 12:00am Start: 08-09-2022 take 1 tablet by [facility] every twenty-four hours Magnesium Oxide 400 MG 1 tablet with food Orally Once a day for 90 days Aug, Active montelukast 10 mg oral tablet (12 sources) Leukotriene Receptor Antagonist Start: 03-14-2024 take 1 tablet by mouth once daily Montelukast (Singulair) 10 mg tablet Active 10 MG PO Daily March 14, 2024 12:00am take 1 tablet by [facility] every twenty-four hours Singulair 10 MG 1 [...] 14, 2024 10:41am take 1 capsule by [facility] every twelve hours Omeprazole 20 MG 1 CAPSULE Orally TWICE A DAY Active take 1 capsule by [facility] once daily Omeprazole 20 MG 1 [...] Active Start: 08-05-2022 take 1 tablet by bessie th every twelve hours Potassium Chloride ER 20 [...] 1 puff(s) by inhalation twice daily Ipratropium Phoenix (Atrovent Hfa) 17 mcg/actuation Hfa Aerosol Inhaler [...] 08, 2022 1:00am March 14, 2024 10:41am Payers Date Payer Category Payer Unknown 2022 Self-pay [id number] 2021 Medicare [id number] 2020 Medicaid [id number] 2019 Medicaid MEDICAID [facility] MEDICAID [id number] 2019-Present Medicaid [id number] 2016 Medicare MEDICARE MEDICAR E A AND B [id number] 2016-Present [place] [id number] 1959 Unknown [id number] 1955 Unknown [id number] 2.16.840.1.830262.3.579.2.647 1955 Unknown [id number] 2.16.840.1.315556.3.579.2.593 1955 Unknown [id number] 2.16.840.1.402733.3.579.2.593 1955 Unknown [id number] 2.16.840.1.385139.3.579.2.593 1955 Unknown [id number] 2.16.840.1.575761.3.579.2.593 1956 Unknown [id number] 2.16.840.1.799264.3.579.2.593 1955 Unknown [id number] 2.16.840.1.966994.3.579.2.593 1956 Unknown [id number] 2.16.840.1.418053.3.579.2.593 1956 Unknown [id number] 2.16.840.1.501625.3.579.2.593 1956 Unknown [id number] 2.16.840.1.092401.3.579.2.593 1956 Unknown [id number] 2.16.840.1.999751.3.579.2.593 1956 Unknown [id number] 2.16.840.1.455914.3.579.2.593 1956 Unknown [id number] 2.16.840.1.666915.3.579.2.196 1955 Unknown [id number] 2.16.840.1.996847.3.579.2.196 1956 Unknown [id number] 2.16.840.1.287676.3.579.2.196 1956 Unknown [id number] 2.16.840.1.634614.3.579.2.196 1956 Unknown [id number] 2.16.840.1.173241.3.579.2.196 1955 Unknown [id number] 2.16.840.1.579197.3.579.2.1258 1956 Unknown [id number] 2.16.840.1.801745.3.579.2.1258 1956 Unknown [id number] 2.16.840.1.456152.3.579.2.1258 1956 Unknown [id number] 2.16.840.1.641626.3.579.2.1258 1956 Unknown [id number] 2.16.840.1.906779.3.579.2.1258 1956 Unknown [id number] 2.16.840.1.811944.3.579.2.1258 1956 Unknown [id number] 2.16.840.1.821319.3.579.2.1258 1956 Unknown [id number] 2.16.840.1.674084.3.579.2.1258 1956 Unknown [id number] 2.16.840.1.741044.3.579.2.1258 1955 Unknown [id number] 2.16.840.1.948086.3.579.2.9 1955 Unknown [id number] 2.16.840.1.700522.3.579.2.1259 Medicare [id number] Unknown HCAP/HFA/FAP Active [id number] Unknown [id number] 2.16.840.1.034506.3.579.2.531 Plan of Treatment Date Care Activity Detail Author Start: 12-08-2022 [facility] Start: 07-07-2020 Influenza vaccination INFLUENZA (#1) [facility] Start: 2006 SHINGRIX VACCINE (1 of 2) SHINGRIX VACCINE (1 of 2) [facility] Start: 2006 Tuberculosis screening COLORECTAL CANCER SCREENING,SEE MODIFIER [facility] Start: 2001 DIABETES SCREEN DIABETES SCREEN [facility] Start: 2001 LIPID SCREEN LIPID SCREEN [facility] Start: 1996 Mammography MAMMOGRAM [facility] Start: 1986 HPV TESTING HPV TESTING [facility] Start: 1977 PAP TESTING PAP TESTING [facility] Start: 1975 Urine microalbumin profile DTAP,TDAP,TD (1 - Tdap) [facility] Start: 1974 HEPATITIS C SCREENING HEPATITIS C SCREENING [facility] Start: 1974 HIV SCREENING HIV SCREENING [facility] Patient Education Colon Polypect shahram Hemorrhoids (DC) Diverticulosis (DC) [facility] Work Phone: [facility] Problems Active Problems Problem Classification Problem Date [...] KIDNEY DISEASE STG 3 UNSP] Onset: 08-19-2022 Procedures Date Procedure Procedure Detail Performing Clinician Start: 12-08-2022 Colonoscopy MD Shaikh Ohara Work Phone: Start: 09-11-2020 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 Fancy Sewer al Provider Start: 09-11-2020 EXTERNAL LAB External P rovider Start: 09-11-2020 EXTERNAL PROCEDURE Exte rnal Provider Start: 09-30-2019 Ultrasonography of b ilateral kidneys Steph Collier Results Test Name Value Interpretation Reference Range Facility Erythrocyte distribution wid th Auto (RBC) [Ratio]on 03-06-2024 Erythrocyte distribution width (RBC) [Ratio] 13.2 % 11.0-15.0 [facility] Estimated glomerular filtrat ion rate (GFR) non- Americanon 03-06-2024 GFR/1.73 sq M.predicted among non-blacks MDRD (S/P/Bld) [Vol rate/Area] 57 mL/min/{1.73_m2} >=60 [facility] Hematocrit Auto (Bld) [Volum e fraction]on 03-06-2024 Hematocrit (Bld) [Volume fraction] 38.7 % 36.0-48.0 [facility] Hemoglobin [Mass/volume] in Bloodon 03-06-2024 Hemoglobin (Bld) [Mass/Vol] 12.2 g/dL 12.0-16.0 [facility] Laboratory - Chemistry and C hemistry - challengeon 03-06-2024 Albumin [Mass/Vol] 3.0 g/dL 3.4-5.0 [facility] Calcium [Mass/Vol] 8.8 mg/dL 8.5-10.1 [facility] Chloride [Moles/Vol] 104 mmol/L 98-107 [facility] CO2 [Moles/Vol] 32.2 mmol/L 21.0-32.0 [facility] Creatinine [Mass/Vol] 0.97 mg/dL 0.55-1.02 [facility] GFR/1.73 sq M.predicted MDRD (S/P/Bld) [Vol rate/Area] mL/min/{1.73_m2} >=60 [facility] Glucose [Mass/Vol] 67 mg/dL 74-106 [facility] Magnesium [Mass/Vol] 1.9 mg/dL 1.8-2.4 [facility] Potassium [Moles/Vol] 3.4 mmol/L 3.5-5.1 [facility] Sodium [Moles/Vol] 143 mmol/L 136-145 [facility] Urate [Mass/Vol] 5.0 mg/dL 2.6-6.0 [facility] Urea nitrogen [Mass/Vol] 16.0 mg/dL 7.0-18.0 [facility] Urea nitrogen/Creatinine [Mass ratio] 16.5 mg/mg [facility] Leukocytes [#/volume] correc melanie for nucleated erythrocytes in Blood by Automated counon 03-06-2024 WBC corrected for nucl RBC Auto (Bld) [#/Vol] 8.1 10 3/uL 4.0-11.0 [facility] MCH Auto (RBC) [Entitic mass ]on 03-06-2024 MCH (RBC) [Entitic mass] 30.4 pg 26.7-34.0 [facility] MCHC Auto (RBC) [Mass/Vol]on 03-06-2024 MCHC (RBC) [Mass/Vol] 31.5 g/dL 29.9-35.2 [facility] MCV Auto (RBC) [Entitic vol] on 03-06-2024 MCV (RBC) [Entitic vol] 96.5 fL 81.0-99.0 [facility] No Panel Informationon 03-06 25-Hydroxy Vitamin D Total 37.1 ng/mL [facility] Comment on above: <20 ng/mL Vit D defi cient20-<30 ng/mL Vit D [id number] ng/mL Vit D sufficient>100 ng/mL Potential Toxicity Parathyroid Hormone (Intact) 36 pg/mL 15-65 [facility] Comment on above: Performed at: [facility] [place] [id number] Director: Raphael Marrero PhD, Phone: [phone] Phosphorus Level 3.2 mg/dL 2.6-4.7 [facility] Urine Random Creatinine 63.27 mg/dL 20.00-300.00 [facility] Urine Random Total Protein <6.0 mg/dL <=11.9 [facility] Platelet mean volume Auto (B ld) [Entitic vol]on 03-06-2024 Platelet mean volume (Bld) [Entitic vol] 9.1 fL 9.5-13.5 [facility] Platelets Auto (Bld) [#/Vol] on 03-06-2024 Platelets (Bld) [#/Vol] 247 10 3/uL 150-450 [facility] RBC Auto (Bld) [#/Vol]on RBC (Bld) [#/Vol] 4.01 10 6/uL 4.20-5.40 [facility] Serum or plasma anion gap de terminationon 03-06-2024 Anion gap [Moles/Vol] 10.2 mmol/L [facility] Follow-Upon 05-08-2023 Follow-Up [id number] Nell Champion Meng 1955 F Date Provider Department Center 05/08/2023 [facility] Family History Problem Relation Age of Onset Heart failure Mother Heart disease Father Family Status - Relation Status Age at Mother Father Level of Service:43174 [place] OFFICE/OUTPATIENT ESTABLISHED LOW MDM 20-29 MIN [facility] 36on 05-03-2023 36 PATIENT CALLED TO CANCEL SURGERY FOR July D/T HER LUNG DISEASE. WILL CALL TO RESCHEDULE WHEN FULLY HEALED FROM LUNGS AND CLEARED//[facility] 36on 04-19-2023 36 FYI CALLED PATIENT T O F/U ON MEDICAL AND PULMONARY CLEARANCES FOR R ELZA ON 05/19 AND PRE-OP RIYA'T 04/27 WITH US AND PATIENT IS CURRENTLY INPATIENT SINCE LAST WEEK D/T COVID AND PULMONARY ISSUES, SHE WILL CALL US ON 04/25 WITH PROGRESS, PLEASE ADVISE IF WE SHOULD CANCEL SURGERY FOR NOW..THANKS//[facility] SYMPTOMATIC COVID-19 ANTIGEN on 04-04-2023 EUA Statement SEE BELOW Normal [facility] Comment on above: Result Comment: This test [...] is revoked sooner. Performed By: #### C VDS #### [facility] [address] [place] [address] Dr. Shayne Roldan SARS-CoV-2 (COVID-19) RNA KAYLEE+probe Ql (Unsp spec) Positive Abnormal NEGATIVE [facility] Comment on above: Performed By: #### C VDAGS #### [facility] [address] [place] [address] Dr. Shayne Roldan XR LSPINE 2_3 VIEWSon [...] STEPH GRANADOS Date: 2023-03-24 12:52 Normal [facility] PTH INTACTon 02-27-2023 PTH, Intact 87 pg/mL Critically high 15-65 [facility] Comment on above: Performed By: #### P THINT #### [facility] [address] [place] [address] Dr. Shayne Roldan HEMOGRAM AND PLATELon 2022 Hematocrit (Bld) [Volume fraction] 44.4 % Normal 36.0-48.0 [facility] Comment on above: Performed By: #### H H #### [facility] [address] [place] [address] Dr. Shayne Roldan Hemoglobin (Bld) [Mass/Vol] 14.5 g/dL Normal 12.0-16.0 [facility] Comment on above: Performed By: #### H H #### [facility] [address] [place] [address] Dr. Shayne Roldan MCH (RBC) [Entitic mass] 30.3 pg Normal 26.7-34.0 [facility] Comment on above: Performed By: #### H H #### [facility] [address] [address] [address] Shayne Roldan MCHC (RBC) [Mass/Vol] 32.7 g/dL Normal 29.9-35.2 [facility] Comment on above: Performed By: #### H H #### [facility] [address] [place] [address] Dr. Shayne Roldan MCV (RBC) [Entitic vol] 92.9 fL Normal 81.0-99.0 [facility] Comment on above: Performed By: #### H H #### [facility] [address] [place] [address] Dr. Shayne Roldan PLT 367 103/ul Normal 150-450 [facility] Comment on above: Performed By: #### H H #### [facility] [address] [place] [address] Dr. Shayne Roldan RBC 4.78 106/ul Normal 4.20-5.40 [facility] Comment on above: Performed By: #### H H #### [facility] [address] [place] [address] Dr. Shayne Roldan WBC 9.9 103/ul Normal 4.0-11.0 [facility] Comment on above: Performed By: #### H H #### [facility] [address] [place] [address] Dr. Shayne Roldan MAGNESIUMon 02-25-2023 Magnesium [Mass/Vol] 1.6 mg/dL Critically low 1.8-2.4 [facility] Comment on above: Performed By: #### M G, RENAL, URIC #### [facility] [address] [place] [address] Dr. Shayne Roldan RENAL FUNCTION PANELon 02-25 Albumin [Mass/Vol] 3.4 g/dL Normal 3.4-5.0 [facility] Comment on above: Performed By: #### M G, RENAL, URIC #### [facility] [address] [place] [address] Dr. Shayne Roldan Calcium [Mass/Vol] 8.7 mg/dL Normal 8.5-10.1 [facility] Comment on above: Performed By: #### M G, RENAL, URIC #### [facility] [address] [address] [address] Shayne Roldan Chloride [Moles/Vol] 104 mmol/L Normal 98-107 [facility] Comment on above: Performed By: #### M G, RENAL, URIC #### [facility] [address] [place] [address] Dr. Shayne Roldan CO2 [Moles/Vol] 25.9 mmol/L Normal 21.0-32.0 [facility] Comment on above: Performed By: #### M G, RENAL, URIC #### [facility] [address] [place] [address] Dr. Shayne Roldan Creatinine [Mass/Vol] 1.19 mg/dL Critically high 0.55-1.02 [facility] Comment on above: Performed By: #### M G, RENAL, URIC #### [facility] [address] [place] [address] Dr. Shayne Roldan EGFR-AF BARBADIAN 55 mL/min/1.73m2 Critically low >=60 [facility] Comment on above: Performed By: #### M G, RENAL, URIC #### [facility] [address] [place] [address] Dr. Shayne Roldan EGFR-NON AF [place] 45 mL/min/1.73m2 Critically low >=60 [facility] Comment on above: Performed By: #### M G, RENAL, URIC #### [facility] [address] [place] [address] Dr. Shayne Roldan Glucose [Mass/Vol] 193 mg/dL Critically high 74-106 [facility] Comment on above: Performed By: #### M G, RENAL, URIC #### [facility] [address] [place] [address] Dr. Shayne Roldan Phosphate [Mass/Vol] 3.2 mg/dL Normal 2.6-4.7 [facility] Comment on above: Performed By: #### M G, RENAL, URIC #### [facility] [address] [place] [address] Dr. Shayne Roldan Potassium [Moles/Vol] 3.9 mmol/L Normal 3.5-5.1 [facility] Comment on above: Performed By: #### M G, RENAL, URIC #### [facility] [address] [place] [address] Dr. Shayne Roldan Sodium [Moles/Vol] 140 mmol/L Normal 136-145 [facility] Comment on above: Performed By: #### M G, RENAL, URIC #### [facility] [address] [place] [address] Dr. Shayne Roldan Urea nitrogen [Mass/Vol] 17.0 mg/dL Normal 7.0-18.0 [facility] Comment on above: Performed By: #### M G, RENAL, URIC #### [facility] [address] [place] [address] Dr. Shayne Roldan UA RANDOM W/MICROSCOPICon BACTERIA TRACE Abnormal NONE SEEN [facility] Comment on above: Performed By: #### M G, RENAL, URIC #### [facility] [address] [place] [address] Dr. Shayne Roldan Bilirubin Ql (U) Negative Normal NEGATIVE [facility] Comment on above: Performed By: #### M G, RENAL, URIC #### [facility] [address] [place] [address] Dr. Shayne Roldan CAST NONE SEEN Normal NONE SEEN [facility] Comment on above: Performed By: #### M G, RENAL, URIC #### [facility] [address] [place] [address] Dr. Shayne Roldan Clarity (U) CLEAR Normal CLEAR [facility] Comment on above: Performed By: #### M G, RENAL, URIC #### [facility] [address] [place] [address] Dr. Shayne Roldan Color (U) LT. YELLOW Normal YELLOW [facility] Comment on above: Performed By: #### M G, RENAL, URIC #### [facility] [address] [place] [address] Dr. Shayne Roldan Crystals LM Nom (Urine sed) NONE SEEN Normal NONE SEEN [facility] Comment on above: Performed By: #### M G, RENAL, URIC #### [facility] [address] [address] [address] Shayne Roldan Epithelial cells LM Ql (Urine sed) RARE Normal NONE SEEN /RARE [facility] Comment on above: Performed By: #### M G, RENAL, URIC #### [facility] [address] [address] [address] Shayne Roldan Glucose Ql (U) Negative Normal NEGATIVE [facility] Comment on above: Performed By: #### M G, RENAL, URIC #### [facility] [address] [address] [address] Shayne Roldan Hemoglobin Ql (U) Negative Normal NEGATIVE [facility] Comment on above: Performed By: #### M G, RENAL, URIC #### [facility] [address] [address] [address] Shayne Roldan Ketones Ql (U) Negative Normal NEGATIVE [facility] Comment on above: Performed By: #### M G, RENAL, URIC #### [facility] [address] [address] [address] Shayne Roldan LEUKOCYTES Negative Normal NEGATIVE [facility] Comment on above: Performed By: #### M G, RENAL, URIC #### [facility] [address] [address] [address] Shayne Roldan MUCOUS NONE SEEN Normal NONE SEEN [facility] Comment on above: Performed By: #### M G, RENAL, URIC #### [facility] [address] [address] [address] Shayne Roldan Nitrite Ql (U) Negative Normal NEGATIVE [facility] Comment on above: Performed By: #### M G, RENAL, URIC #### [facility] [address] [address] [address] Shayne Roldan pH (U) 5.0 [pH] Normal 5-9 [facility] Comment on above: Performed By: #### M G, RENAL, URIC #### [facility] [address] [address] [address] Shayne Roldan RBC 0-2 Normal 0-2 [facility] Comment on above: Performed By: #### M G, RENAL, URIC #### [facility] [address] [address] [address] Shayne Roldan SPEC GRAVITY 1.025 Normal 1.005-<=1.025 [facility] Comment on above: Performed By: #### M G, RENAL, URIC #### [facility] [address] [address] [address] Shayne Roldan UA PROTEIN Negative Normal NEGATIVE/ TRACE [facility] Comment on above: Performed By: #### M G, RENAL, URIC #### [facility] [address] [place] [address] Dr. Shayne Roldan Urobilinogen Qn (U) 0.2 {Rogelio'U}/dL Normal 0.2 - 1. 0 [facility] Comment on above: Performed By: #### M G, RENAL, URIC #### [facility] [address] [place] [address] Dr. Shayne Roldan WBC 0-2 Abnormal NONE SEEN [facility] Comment on above: Performed By: #### M G, RENAL, URIC #### [facility] [address] [place] [address] Dr. Shayne Roldan URIC ACID SERUMon 02-25-2023 Urate [Mass/Vol] 6.1 mg/dL Critically high 2.6-6.0 [facility] Comment on above: Performed By: #### M G, RENAL, URIC #### [facility] [address] [address] [address] Shayne Roldan URINE T PROTEIN CREAT RATIOo n 02-25-2023 Protein (U) [Mass/Vol] 13.0 mg/dL Critically high <=12.0 [facility] Comment on above: Performed By: #### M G, RENAL, URIC #### [facility] [address] [place] [address] Dr. Shayne Roldan UR PROT CREAT RAT 0.16 Normal [facility] Comment on above: Performed By: #### M G, RENAL, URIC #### [facility] [address] [place], [place] [id number] Dr. Shayne Roldan URINE CREAT 83.60 mg/dL Normal 20.00-300.00 [facility] Comment on above: Performed By: #### M G, RENAL, URIC #### [facility] [address] [place], [place] [address] Dr. Shayne Roldan VITAMIN D 25 OHon 02-25-2023 VIT D 25-OH 41.6 ng/mL Normal [facility] Comment on above: Performed By: #### M G, RENAL, URIC #### [facility] [address] [place], [place] [address] Dr. Shayne Roldan VIT D RANGES SEE BELOW Normal [facility] Comment on above: Result Comment: <20 ng/mL Vit D deficient 20 - <30 ng/mL Vit D insufficient 30 - 100 ng/mL Vit D sufficient >100 ng/mL Potential Toxicity Performed By: #### M G, RENAL, URIC #### [facility] [address] [place] [address] Dr. Shayne Roldan XR CHEST 2 Von [...] BRITTANY GALDAMEZ Date: 2023-02-22 16:15 Normal The [facility] MAMM SCREEN 3D PRATEEK CADon 12-15-2022 MG MAMM SCREEN 3D PRATEEK CAD Patient: DIANA CHAMPION Exam Date: 12/15/2022 : 1955 Gender:F Ordering : DR JACK HALL . Admission #: [id number] Family : Order #: [id number] CLICK HERE TO VIEW EXAM RADIOLOGY REPORT PROCEDURE: MAMMOGRAM SCREENING 3D BILATERAL CAD COMPARISON: MAMM SCREEN 3D PRATEEK CAD, 11/26/2021. INDICATIONS: Calculator Name NCI Breast Cancer Risk Assessment Tool 5 Year Breast Cancer Risk 1.20% Lifetime Breast Cancer Risk 4.40% Personal Breast Cancer No Personal Ovarian Cancer No Treatments Excision, radiation, chemotherapy Family Cancers None LOCATION: [facility] BREAST COMPOSITION: Almost entirely fatty. [...] Walters MD on 12/15/2022 at 10:51 Normal [facility] XR DEXA BONE DENSITYon 12-15 XR [...] by: STEPH GRANADOS Date: 2022-12-15 09:50 Normal [facility] Fran 12-08-2022 L - -------- Specimen: [id number] Received: 12/08/22 Status: CELIA Kay Num: [id number] Spec Type: Surgical Subm Dr: Gato Domingo MD Tissues: A Colon Biopsy (DESC COL POLYP) Procedures: HE/2, Gross/Micro L4 -------- Age/ Patient Sex Location Account Attending Physician -------- Diana Champion 67/F [id number] Gato Domingo MD -------- SPEC NUM: [id number] RECD: 12/08/22 STATUS: CELIA MARIO NUM: [id number] KENDRA: 12/08/[address] [facility] [address]: Gato Domingo MD ENTERED: 12/08/[address] [facility] [address]: KHRIS TYPE: Surgical DEPT: S ENTERED BY: [id number] RECV BY: [id number] ORDERED: HE/2, Gross/Micro L4 ORDERED: HE/2, Gross/Micro [...] support the above pathologic diagnosis. CPT Codes 84922 -------- -------- Specimen: [id number] Received: 12/08/22 Status: CELIA Oleasudeep Num: [id number] Spec Type: Surgical Subm Dr: Gato Domingo MD Tissues: A Colon Biopsy (DESC COL POLYP) Procedures: CYNDEE, Shagufta/Dionna L4 -------- Patient: Diana Champion [id number] (Continued) -------- Signed (signature on file) Eunice Rosa MD 12/09/22 1053 [facility] PAP ACOG PANEL 2: 30 to 65on 11-16-2022 . . Normal [facility] Comment on above: Performed By: #### [id number] #### [facility] [address] [address] [address] Shayne Roldan Age Gdln ACOG Testing Comment Normal [facility] Comment on above: Result Comment: <21 or >65 or no age provided Performed By: #### [id number] #### [facility] [address] [address] [address] Shayne Roldan DIAGNOSIS: Comment [facility] Comment on above: Result Comment: NEGA TIVE FOR INTRAEPITHELIAL LESION OR MALIGNANCY. Performed By: #### [id number] #### [facility] [address] [place] [address] Dr. Shayne Roldan Methodology: Comment [facility] Comment on above: Result Comment: This liquid based ThinPrep(R) pap test was screened with the use of an image guided system. Performed By: #### [id number] #### [facility] [address] [address] [address] Shayne Roldan Note: Comment [facility] Comment on above: Result Comment: The Pap smear is a screening test designed to aid in the detection of premalignant and malignant conditions of the uterine cervix. It is not a diagnostic procedure and should not be used as the sole means of detecting cervical cancer. Both false-positive and false-negative reports do occur. . Performed By: #### [id number] #### [facility] [address] [address] [address] Shayne Roldan Performed by: Comment [facility] Comment on above: Result Comment: Onur Aguilar Study Abroad Advisor (ASCP) Performed By: #### [id number] #### [facility] [address] [address] [address] Sahyne Roldan Specimen adequacy: Comment Normal [facility] Comment on above: Result Comment: Sati sfactory for evaluation. Endocervical and/or squamous metaplastic cells (endocervical component) are present. Performed By: #### [id number] #### [facility] [address] [address] [address] Shayne Roldan RENAL FUNCTION PANELon 08-19 Albumin [Mass/Vol] 3.4 g/dL Normal 3.4-5.0 [facility] Comment on above: Performed By: #### M G, RENAL, URIC #### [facility] [address] [place] [address] Dr. Shayne Roldan Calcium [Mass/Vol] 8.4 mg/dL Critically low 8.5-10.1 [facility] Comment on above: Performed By: #### M G, RENAL, URIC #### [facility] [address] [place] [address] Dr. Shayne Roldan Chloride [Moles/Vol] 103 mmol/L Normal 98-107 [facility] Comment on above: Performed By: #### M G, RENAL, URIC #### [facility] [address] [place] [address] Dr. Shayne Roldan CO2 [Moles/Vol] 27.8 mmol/L Normal 21.0-32.0 [facility] [place] [facility] Comment on above: Performed By: #### M G, RENAL, URIC #### [facility] [address] [place] [address] Dr. Shayne Roldan Creatinine [Mass/Vol] 1.02 mg/dL Normal 0.55-1.02 [facility] Comment on above: Performed By: #### M G, RENAL, URIC #### [facility] [address] [place] [address] Dr. Shayne Roldan EGFR-AF BARBADIAN >60 Normal >=60 [facility] Comment on above: Performed By: #### M G, RENAL, URIC #### [facility] [address] [place] [address] Dr. Shayne Roldan EGFR-NON AF BARBADIAN 54 mL/min/1.73m2 Critically low >=60 [facility] Comment on above: Performed By: #### M G, RENAL, URIC #### [facility] [address] [address] [address] Shayne Roldan Glucose [Mass/Vol] 110 mg/dL Critically high 74-106 [facility] Comment on above: Performed By: #### M G, RENAL, URIC #### [facility] [address] [place] [address] Dr. Shayne Roldan Phosphate [Mass/Vol] 2.3 mg/dL Critically low 2.6-4.7 [facility] Comment on above: Performed By: #### M G, RENAL, URIC #### [facility] [address] [place] [address] Dr. Shayne Roldan Potassium [Moles/Vol] 3.2 mmol/L Critically low 3.5-5.1 [facility] Comment on above: Performed By: #### M G, RENAL, URIC #### [facility] [address] [place] [address] Dr. Shayne Roldan Sodium [Moles/Vol] 138 mmol/L Normal 136-145 [facility] Comment on above: Performed By: #### M G, RENAL, URIC #### [facility] [address] [place] [address] Dr. Shayne Roldan Urea nitrogen [Mass/Vol] 14.0 mg/dL Normal 7.0-18.0 [facility] Comment on above: Performed By: #### M G, RENAL, URIC #### [facility] [address] [place] [address] Dr. Shayne Roldan PTH INTACTon 08-06-2022 PTH, Intact 40 pg/mL Normal 15-65 [facility] Comment on above: Performed By: #### M G, RENAL, URIC #### [facility] [address] [place] [address] Dr. Shayne Roldan HEMOGRAM AND PLATELon 2021 Hematocrit (Bld) [Volume fraction] 39.8 % Normal 36.0-48.0 [facility] Comment on above: Performed By: #### M G, RENAL, URIC #### [facility] [address] [place] [address] Dr. Shayne Roldan Hemoglobin (Bld) [Mass/Vol] 13.4 g/dL Normal 12.0-16.0 [facility] Comment on above: Performed By: #### M G, RENAL, URIC #### [facility] [address] [place] [address] Dr. Shayne Roldan MCH (RBC) [Entitic mass] 30.5 pg Normal 26.7-34.0 [facility] Comment on above: Performed By: #### M G, RENAL, URIC #### [facility] [address] [place] [address] Dr. Shayne Roldan MCHC (RBC) [Mass/Vol] 33.7 g/dL Normal 29.9-35.2 [facility] Comment on above: Performed By: #### M G, RENAL, URIC #### [facility] [address] [place] [address] Dr. Shayne Roldan MCV (RBC) [Entitic vol] 90.5 fL Normal 81.0-99.0 [facility] Comment on above: Performed By: #### M G, RENAL, URIC #### [facility] [address] [place] [address] Dr. Shayne Roldan PLT 299 103/ul Normal 150-450 [facility] Comment on above: Performed By: #### M G, RENAL, URIC #### [facility] [address] [place] [address] Dr. Shayne Roldan RBC 4.40 106/ul Normal 4.20-5.40 [facility] Comment on above: Performed By: #### M G, RENAL, URIC #### [facility] [address] [place] [address] Dr. Shayne Roldan WBC 8.8 103/ul Normal 4.0-11.0 [facility] Comment on above: Performed By: #### M G, RENAL, URIC #### [facility] [address] [place] [address] Dr. Shayne Roldan MAGNESIUMon 08-05-2022 Magnesium [Mass/Vol] 1.5 mg/dL Critically low 1.8-2.4 [facility] Comment on above: Performed By: #### M G, RENAL, URIC #### [facility] [address] [address] [address] Shayne Roldan RENAL FUNCTION PANELon 08-05 Albumin [Mass/Vol] 3.5 g/dL Normal 3.4-5.0 [facility] Comment on above: Performed By: #### M G, RENAL, URIC #### [facility] [address] [address] [address] Shayne Roldan Calcium [Mass/Vol] 8.4 mg/dL Critically low 8.5-10.1 [facility] Comment on above: Performed By: #### M G, RENAL, URIC #### [facility] [address] [place] [address] Dr. Shayne Roldan Chloride [Moles/Vol] 101 mmol/L Normal 98-107 [facility] Comment on above: Performed By: #### M G, RENAL, URIC #### [facility] [address] [address] [address] Shayne Roldan CO2 [Moles/Vol] 29.5 mmol/L Normal 21.0-32.0 [facility] [place] [facility] Comment on above: Performed By: #### M G, RENAL, URIC #### [facility] [address] [place] [address] Dr. Shayne Roldan Creatinine [Mass/Vol] 1.04 mg/dL Critically high 0.55-1.02 [facility] Comment on above: Performed By: #### M G, RENAL, URIC #### [facility] [address] [place] [address] Dr. Shayne Roldan EGFR-AF BARBADIAN >60 Normal >=60 [facility] [place] [facility] Comment on above: Performed By: #### M G, RENAL, URIC #### [facility] [address] [place] [address] Dr. Shayne Roldan EGFR-NON AF BARBADIAN 53 mL/min/1.73m2 Critically low >=60 [facility] Comment on above: Performed By: #### M G, RENAL, URIC #### [facility] [address] [place] [address] Dr. Shayne Roldan Glucose [Mass/Vol] 92 mg/dL Normal 74-106 [facility] Comment on above: Performed By: #### M G, RENAL, URIC #### [facility] [address] [address] [address] Shayne Roldan Phosphate [Mass/Vol] 2.4 mg/dL Critically low 2.6-4.7 [facility] Comment on above: Performed By: #### M G, RENAL, URIC #### [facility] [address] [place] [address] Dr. Shayne Roldan Potassium [Moles/Vol] 2.8 mmol/L Critically low 3.5-5.1 [facility] Comment on above: Performed By: #### M G, RENAL, URIC #### [facility] [address] [place] [address] Dr. Shayne Roldan Sodium [Moles/Vol] 137 mmol/L Normal 136-145 [facility] Comment on above: Performed By: #### M G, RENAL, URIC #### [facility] [address] [place] [address] Dr. Shayne Roldan Urea nitrogen [Mass/Vol] 10.0 mg/dL Normal 7.0-18.0 [facility] Comment on above: Performed By: #### M G, RENAL, URIC #### [facility] [address] [place] [address] Dr. Shayne Roldan UA RANDOM W/MICROSCOPICon BACTERIA SMALL Abnormal NONE SEEN [facility] Comment on above: Performed By: #### U AMIC #### [facility] [address] [place] [address] Dr. Shayne Roldan Bilirubin Ql (U) Negative Normal NEGATIVE [facility] Comment on above: Performed By: #### U AMIC #### [facility] [address] [place] [address] Dr. Shayne Roldan CAST NONE SEEN Normal NONE SEEN [facility] Comment on above: Performed By: #### U AMIC #### [facility] [address] [place] [address] Dr. Shayne Roldan Clarity (U) CLEAR Normal CLEAR [facility] Comment on above: Performed By: #### U AMIC #### [facility] [address] [address] [address] Shayne Roldan Color (U) LT. YELLOW Normal YELLOW [facility] Comment on above: Performed By: #### U AMIC #### [facility] [address] [address] [address] Shayne Roldan Crystals LM Nom (Urine sed) NONE SEEN Normal NONE SEEN [facility] Comment on above: Performed By: #### U AMIC #### [facility] [address] [address] [address] Shayne Roldan Epithelial cells LM Ql (Urine sed) FEW Abnormal NONE SEEN /RARE [facility] Comment on above: Performed By: #### U AMIC #### [facility] [address] [place] [address] Dr. Shayne Roldan Glucose Ql (U) Negative Normal NEGATIVE [facility] Comment on above: Performed By: #### U AMIC #### [facility] [address] [place] [address] Dr. Shayne Roldan Hemoglobin Ql (U) Negative Normal NEGATIVE [facility] Comment on above: Performed By: #### U AMIC #### [facility] [address] [place] [address] Dr. Shayne Roldan Ketones Ql (U) Negative Normal NEGATIVE [facility] Comment on above: Performed By: #### U AMIC #### [facility] [address] [address] [address] Shayne Roldan LEUKOCYTES TRACE Abnormal NEGATIVE [facility] Comment on above: Performed By: #### U AMIC #### [facility] [address] [address] [address] Shayne Roldan MUCOUS NONE SEEN Normal NONE SEEN [facility] Comment on above: Performed By: #### U AMIC #### [facility] [address] [place] [address] Dr. Shayne Roldan Nitrite Ql (U) Negative Normal NEGATIVE [facility] Comment on above: Performed By: #### U AMIC #### [facility] [address] [place] [address] Dr. Shayne Roldan pH (U) 6.0 [pH] Normal 5-9 [facility] Comment on above: Performed By: #### U AMIC #### [facility] [address] [place] [address] Dr. Shayne Roldan RBC NONE SEEN Abnormal 0-2 [facility] Comment on above: Performed By: #### U AMIC #### [facility] [address] [place] [address] Dr. Shayne Roldan SPEC GRAVITY <=1.005 Abnormal 1.005-<=1.025 [facility] Comment on above: Performed By: #### U AMIC #### [facility] [address] [place] [address] Dr. Shayne Roldan UA PROTEIN Negative Normal NEGATIVE/ TRACE [facility] Comment on above: Performed By: #### U AMIC #### [facility] [address] [place] [address] Dr. Shayne Roldan Urobilinogen Qn (U) 0.2 {Rogelio'U}/dL Normal 0.2 - 1. 0 [facility] Comment on above: Performed By: #### U AMIC #### [facility] [address] [place] [address] Dr. Shayne Roldan WBC 5-10 Abnormal NONE SEEN [facility] Comment on above: Performed By: #### U AMIC #### [facility] [address] [place] [address] Dr. Shayne Roldan URIC ACID SERUMon 08-05-2022 Urate [Mass/Vol] 6.5 mg/dL Critically high 2.6-6.0 [facility] Comment on above: Performed By: #### M G, RENAL, URIC #### [facility] [address] [place] [address] Dr. Shayne Roldan URINE T PROTEIN CREAT RATIOo n 08-05-2022 Protein (U) [Mass/Vol] 4.8 mg/dL Normal <=12.0 [facility] Comment on above: Performed By: #### U RTPCR #### [facility] [address] [address] [address] Shayne Roldan UR PROT CREAT RAT 0.09 Normal [facility] Comment on above: Performed By: #### U RTPCR #### [facility] [address] [address] [address] Shayne Roldan URINE CREAT 52.65 mg/dL Normal 20.00-300.00 [facility] Comment on above: Performed By: #### U RTPCR #### [facility] [address] [address] [address] Shayne Roldan VITAMIN D 25 OHon 08-05-2022 VIT D 25-OH 38.9 ng/mL Normal [facility] Comment on above: Performed By: #### M G, RENAL, URIC #### [facility] [address] [place] [address] Dr. Shayne Roldan VIT D RANGES SEE BELOW Normal [facility] Comment on above: Result Comment: <20 ng/mL Vit D deficient 20 - <30 ng/mL Vit D insufficient 30 - 100 ng/mL Vit D sufficient >100 ng/mL Potential Toxicity Performed By: #### M G, RENAL, URIC #### [facility] [address] [place] [address] Dr. Shayne Roldan IMMUNOGLOBULINS IGA/IGM/IGG/ IGE QUANTITAon 07-12-2022 Immunoglobulin A, Qn, Serum 295 mg/dL Normal 87-352 [facility] Comment on above: Result Comment: Perf ormed at: CB Performed By: #### M G, RENAL, URIC #### [facility] [address] [place] [address] Dr. Shayne Roldan Immunoglobulin E, Total 32 IU/mL Normal 6-495 [facility] Comment on above: Result Comment: Perf ormed at: BN Performed By: #### M G, RENAL, URIC #### [facility] [address] [place] [address] Dr. Shayne Roldan Immunoglobulin G, Qn, Serum 729 mg/dL Normal 586-1602 [facility] Comment on above: Result Comment: Perf ormed at: CB Performed By: #### M G, RENAL, URIC #### [facility] [address] [address] [address] Shayne Roldan Immunoglobulin M, Qn, Serum 75 mg/dL Normal 26-217 [facility] Comment on above: Result Comment: Perf ormed at: CB Performed By: #### M G, RENAL, URIC #### [facility] [address] [address] [address] Shayne Roldan Abstracton 07-08-2022 Abstract [id number] Nell Champion Meng 1955 F Date Provider Department Center 07/08/2022 JOHANNA MEDINA [facility] Hos Family History Problem Relation Age of Onset Heart failure Mother Heart disease Father Family Status - Relation Status Age at Mother Father Normal [facility] CBC AUTO DIFFon 07-05-2022 BASO # 0.1 103/ul Normal 0.0-0.1 [facility] Comment on above: Performed By: #### M G, RENAL, URIC #### [facility] [address] [place] [address] Dr. Shayne Roldan Basophils/100 WBC (Bld) 0.7 % Normal 0.2-2.0 [facility] Comment on above: Performed By: #### M G, RENAL, URIC #### [facility] [address] [place] [address] Dr. Shayne Roldan EO # 0.4 103/ul Normal 0.0-0.7 [facility] Comment on above: Performed By: #### M G, RENAL, URIC #### [facility] [address] [place] [address] Dr. Shayne Roldan Eosinophils/100 WBC (Bld) 4.4 % Normal 0.9-7.0 [facility] Comment on above: Performed By: #### M G, RENAL, URIC #### [facility] [address] [place] [address] Dr. Shayne Roldan Erythrocyte distribution width (RBC) [Ratio] 12.6 % Normal 11.0-15.0 [facility] Comment on above: Performed By: #### M G, RENAL, URIC #### [facility] [address] [address] [address] Shayne Roldan Hematocrit (Bld) [Volume fraction] 40.2 % Normal 36.0-48.0 [facility] [facility] Comment on above: Performed By: #### M G, RENAL, URIC #### [facility] [address] [address] [address] Shayne Roldan Hemoglobin (Bld) [Mass/Vol] 13.6 g/dL Normal 12.0-16.0 [facility] Comment on above: Performed By: #### M G, RENAL, URIC #### [facility] [address] [address] [address] Shayne Roldan IG # 0.07 10e3/ul Critically high 0.00-0.03 [facility] Comment on above: Performed By: #### M G, RENAL, URIC #### [facility] [address] [address] [address] Shayne Roldan IG % 0.8 % Critically high 0.0-0.5 [facility] Comment on above: Performed By: #### M G, RENAL, URIC #### [facility] [address] [address] [address] Shayne Roldan LYMPH # 2.3 103/ul Normal 1.2-3.8 [facility] Comment on above: Performed By: #### M G, RENAL, URIC #### [facility] [address] [address] [address] Shayne Roldan Lymphocytes/100 WBC (Bld) 24.7 % Normal 20.5-60.0 [facility] Comment on above: Performed By: #### M G, RENAL, URIC #### [facility] [address] [address] [address] Shayne Roldan MANUAL DIFF REQ NO Normal [facility] Comment on above: Performed By: #### M G, RENAL, URIC #### [facility] [address] [place] [address] Dr. Shayne Roldan MCH (RBC) [Entitic mass] 30.7 pg Normal 26.7-34.0 [facility] Comment on above: Performed By: #### M G, RENAL, URIC #### [facility] [address] [place] [address] Dr. [facility] [Mass/Vol] 33.8 g/dL Normal 29.9-35.2 [facility] Comment on above: Performed By: #### M G, RENAL, URIC #### [facility] [address] [place] [address] Dr. Shayne Roldan MCV (RBC) [Entitic vol] 90.7 fL Normal 81.0-99.0 [facility] Comment on above: Performed By: #### M G, RENAL, URIC #### [facility] [address] [place] [address] Dr. Shayne Roldan MONO # 0.7 103/ul Normal 0.3-0.8 [facility] Comment on above: Performed By: #### M G, RENAL, URIC #### [facility] [address] [place] [address] Dr. Shayne Roldan Monocytes/100 WBC (Bld) 7.7 % Normal 1.7-12.0 [facility] Comment on above: Performed By: #### M G, RENAL, URIC #### [facility] [address] [place] [address] Dr. Shayne Roldan NEUT # 5.7 103/ul Normal 1.4-6.5 [facility] Comment on above: Performed By: #### M G, RENAL, URIC #### [facility] [address] [place] [address] Dr. Shayne Roldan Neutrophils/100 WBC (Bld) 61.7 % Normal 43.0-75.0 [facility] Comment on above: Performed By: #### M G, RENAL, URIC #### [facility] [address] [place] [address] Dr. Shayne Roldan Platelet mean volume (Bld) [Entitic vol] 8.8 fL Critically low 9.5-13.5 [facility] Comment on above: Performed By: #### M G, RENAL, URIC #### [facility] [address] [address] [address] Shayne Roldan PLT 279 103/ul Normal 150-450 [facility] Comment on above: Performed By: #### M G, RENAL, URIC #### [facility] [address] [address] [address] Shayne Roldan RBC 4.43 106/ul Normal 4.20-5.40 [facility] Comment on above: Performed By: #### M G, RENAL, URIC #### [facility] [address] [address] [address] Shayne Roldan WBC 9.1 103/ul Normal 4.0-11.0 [facility] Comment on above: Performed By: #### M G, RENAL, URIC #### [facility] [address] [address] [address] Shayne Roldan Covid-19 PCR ([facility])on SARS-CoV-2 (COVID-19) RNA KAYLEE+probe Ql (Unsp spec) Not detected Normal NOT DETECTED [facility] Comment on above: Result Comment: This test is not yet approved or cleared by the [place] FDA. When there are no FDA-approved or cleared tests available, and other criteria are met, FDA can make tests available under an emergency access mechanism called an Emergency Use Authorization (EUA). The EUA for this test is supported by the [employer] of Health and Human Service's (HHS's) declaration [...] By: #### M G, RENAL, URIC #### [facility] [address] [address] [address] Shayne Roldan XR CHEST 2 Von [...] NARDA LONDONO Date: 2022-06-08 19:58 Normal [facility] Covid-19 PCR ([facility])on SARS-CoV-2 (COVID-19) RNA KAYLEE+probe Ql (Unsp spec) Not detected Normal NOT DETECTED [facility] Comment on above: Result Comment: This test is not yet approved or cleared by the [place] FDA. When there are no FDA-approved or cleared tests available, and other criteria are met, FDA can make tests available under an emergency access mechanism called an Emergency Use Authorization (EUA). The EUA for this test is supported by the [employer] of Health and Human Service's (HHS's) declaration [...] consistent with SARS-CoV-2. Performed By: #### [facility] #### [facility] [address] [place], [place] [address] Dr. Shayne Roldan DEXA AXIALon 03-01-2022 DEXA AXIAL [facility] Department of Radiology [address] [place] [phone] Patient Name: DIANA CHAMPION : 1955 Sex: F Age: Race: White Pt. Location: Patient Status: D Ordered Date: 02/24/2022 1:25:00 PM Completed Date: 03/01/2022 09:46 AM Requesting Provider: CINDA ANTONIO Attending Provider: Report Copy To: Signs & Symptoms: Z78.0 Asymptomatic menopausal state I10 History: [place] Comments: Exam: DEXA AXIAL DEXA AXIAL 03/01/2022 [...] characteristics. Electronically signed: Luzma Fernandez. Transcribed by: [email or web address], User Resident: Electronically Signed by: LUZMA FERNANDEZ @ 03/02/2022 01:07 PM Normal The [facility] SCOLIOSIS 2 [facility] 02-24-2022 SCOLIOSIS 2 [facility] Department of Radiology [address] [place] [phone] Patient Name: DIANA CHAMPION : 1955 [...] spine. Electronically signed: Hugo Lynn. Transcribed by: [email or web address], User Resident: Electronically Signed by: HUGO LYNN @ 02/26/2022 11:07 AM Normal [facility] Comment on above: Order Comment: Views (X-RAY, SCOLIOSIS): PA, Lateral evaluate CT LUMBAR SPINE W CONTRASTon 01-24-2022 CT LUMBAR SPINE W CONTRAST [facility] Department of Radiology [address] [place] [phone] Patient Name: DIANA CHAMPION : 1955 [...] L1-2. Electronically signed: Gaurang Lawrence. Transcribed by: [email or web address], User Resident: Electronically Signed by: GAURANG Sudeep HUNGDESHAWN @ 01/26/2022 08:58 AM Normal [facility] Comment on above: Order Comment: , CT MYELOGRAM>PAPER WORK IN CHART LUMBAR MYELOGRAMon 2 LUMBAR MYELOGRAM [facility] Department of Radiology [address] [place] [phone] Patient Name: DIANA CHAMPION : 1955 Sex: F Age: Race: White Pt. Location: Patient Status: O Ordered Date: 01/09/2022 9:00:00 AM Completed Date: 01/24/2022 02:37 PM Requesting Provider: JOO LINN Attending Provider: JOO LINN Report Copy To: UNKNOWN, PHYSICIAN Signs & Symptoms: M54.16 Radiculopathy, lumbar region I10 History: Jessica Is patient on thinners? 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 Consent was obtained. Timeout: [place] protocol timeout verification performed. PROCEDURE: Estimated blood [...] report. Electronically signed: Greg Marlow. Transcribed by: [email or web address], User Resident: DEBBIE JI Electronically Signed by: GREG MARLOW @ 01/24/2022 04:07 PM I personally read this/these film(s) with this resident Normal The [facility] Comment on above: Order Comment: , CT MYELOGRAM> PAPER WORK SCANNED IN CHART , CT MYELOGRAM> PAPER WORK SCANNED IN CHART , , , Ordering Provider - JOO LINN MD , HIP LEFT 1 OR 2 VWS WITH PEL VISon 01-06-2022 HIP LEFT 1 OR 2 VWS WITH PELVIS [facility] Department of Radiology [address] [place] [phone] Patient Name: DIANA CHAMPION : 1955 Sex: F Age: Race: White Pt. Location: Patient Status: D Ordered Date: 12/21/2021 10:45:00 AM Completed Date: 01/06/2022 01:24 PM Requesting Provider: JOO LINN Attending Provider: JOO LINN Report Copy To: Signs & Symptoms: Z96.642 Presence of left artificial hip joint I10 History: [place] Comments: Evaluate Exam: HIP LEFT 1 OR 2 VWS WITH PELVIS HIP LEFT 1 OR 2 VWS WITH PELVIS HISTORY: Hip replacement, follow-up. COMPARISON: None. IMPRESSION: 1. Redemonstrated left hip prosthesis without visible complication. 2. Advanced right hip arthritis without significant change with advanced joint space narrowing. Unchanged lumbosacral fusion hardware. Electronically signed: Joe Matthew. Transcribed by: [email or web address], User Resident: Electronically Signed by: JOE MATTHEW @ 01/09/2022 04:45 PM Normal [facility] Comment on above: Order Comment: Evalu ate Social History Date Type Detail Facility Start: 09-11-2020 End: 03-14-2024 Tobacco smoking status NHIS Never smoker [facility] Start: 09-11-2020 Tobacco use and exposure Never used [facility] Start: 09-11-2020 Alcohol intake Lifetime non-d my (finding) [facility] Start: 09-11-2020 History SDOH Alcohol Frequency 1 [facility] Start: 1955 Sex Assigned At Female F [facility] Tobacco smoking stat us MOIS Unknown if ever smoked [facility] Sex Assigned At Not on file [facility] Sex Assigned At Sex Assigned At Bir th [place] [facility] Other Vital Signs Date Time Vital Sign Value Performing Clinician Facility 03-14-2024 10:30-0400 Body height 165.1 cm Steph Collier Work Phone: [facility] 03-14-2024 10:30-0400 Body mass index (BMI) [Ratio] 39 kg/m2 Steph Collier Work Phone: [facility] 03-14-2024 10:30-0400 Body temperature 97.4 [degF] Steph Collier Work Phone: [facility] 03-14-2024 10:30-0400 Body weight 106.36 kg Steph Collier Work Phone: [facility] 03-14-2024 10:30-0400 Diastolic blood pressure 80 mm[Hg] Steph Collier Work Phone: [facility] 03-14-2024 10:30-0400 Heart rate 77 /min Steph Collier Work Phone: [facility] 03-14-2024 10:30-0400 Inhaled oxygen flow rate 3 L/min Steph Collier Work Phone: [facility] 03-14-2024 10:30-0400 Respiratory rate 20 /min Steph Collier Work Phone: [facility] 03-14-2024 10:30-0400 SaO2% (BldA) [Mass fraction] 92 % Steph Collier Work Phone: [facility] 03-14-2024 10:30-0400 Systolic blood pressure 120 mm[Hg] Steph Collier Work Phone: [facility] 08-17-2023 09:20-0400 Body height 165.1 cm Herberth Joana Other [facility] Other 08-17-2023 09:20-0400 Body mass index (BMI) [Ratio] 38.1 kg/m2 Herberth Joana Other [facility] Other 08-17-2023 09:20-0400 Body temperature 98.8 [degF] Herberth Joana Other [facility] Other 08-17-2023 09:20-0400 Body weight 103.87 kg Herberth Joana Other [facility] Other 08-17-2023 09:20-0400 Diastolic blood pressure 85 mm[Hg] Herberth Joana Other [facility] Other 08-17-2023 09:20-0400 Respiratory rate 18 /min Herberth Joana Other [facility] Other 08-17-2023 09:20-0400 SaO2% (BldA) [Mass fraction] 94 % Herberth Joana Other [facility] Other 08-17-2023 09:20-0400 Systolic blood pressure 151 mm[Hg] Herberth Joana Other [facility] Other 03-02-2023 10:00-0400 Body height 165.1 cm Herberth Joana Other [facility] Other 03-02-2023 10:00-0400 Body mass index (BMI) [Ratio] 37.29 kg/m2 Herberth Joana Other [facility] Other 03-02-2023 10:00-0400 Body temperature 98.9 [degF] Herberth Joana Other [facility] Other 03-02-2023 10:00-0400 Body weight 101.65 kg Herberth Joana Other [facility] Other 03-02-2023 10:00-0400 Diastolic blood pressure 76 mm[Hg] Herberth Joana Other [facility] Other 03-02-2023 10:00-0400 Respiratory rate 20 /min Herberth Joana Other [facility] Other 03-02-2023 10:00-0400 SaO2% (BldA) [Mass fraction] 96 % Herberth Joana Other [facility] Other 03-02-2023 10:00-0400 Systolic blood pressure 136 mm[Hg] Herberth Joana Other [facility] Other 12-08-2022 09:30-0500 Diastolic blood pressure 59 mm[Hg] MD Shaikh Ohara Work Phone: [facility] 12-08-2022 09:30-0500 Heart rate 55 /min MD Shaikh Ohara Work Phone: [facility] 12-08-2022 09:30-0500 Respiratory rate 16 /min MD Shaikh Ohara Work Phone: [facility] 12-08-2022 09:30-0500 SaO2% (BldA) [Mass fraction] 96 % MD Shaikh Ohara Work Phone: [facility] 12-08-2022 09:30-0500 Systolic blood pressure 112 mm[Hg] MD Shaikh Ohara Work Phone: [facility] 12-08-2022 06:54-0500 Body height 162.56 cm MD Shaikh Ohara Work Phone: [facility] 12-08-2022 06:54-0500 Body temperature 98.2 [degF] MD Shaikh Ohara Work Phone: [facility] 12-08-2022 06:54-0500 Body weight 104.32 kg MD Shaikh Ohara Work Phone: [facility] 08-09-2022 11:00-0400 Body height 165.1 cm Herberth Joana Other [facility] Other 08-09-2022 11:00-0400 Body mass index (BMI) [Ratio] 37.87 kg/m2 Herberth Joana Other [facility] Other 08-09-2022 11:00-0400 Body temperature 97.2 [degF] Herberth Joana Other [facility] Other 08-09-2022 11:00-0400 Body weight 103.24 kg Herberth Joana Other [facility] Other 08-09-2022 11:00-0400 Diastolic blood pressure 88 mm[Hg] Herberth Joana Other [facility] Other 08-09-2022 11:00-0400 Respiratory rate 20 /min Herberth Joana Other [facility] Other 08-09-2022 11:00-0400 SaO2% (BldA) [Mass fraction] 95 % Herberth Joana Other [facility] Other 08-09-2022 11:00-0400 Systolic blood pressure 133 mm[Hg] Herberth Joana Other [facility] Other 11-17-2021 10:40-0500 Body height 165.1 cm Herberth Joana Other [facility] Other 11-17-2021 10:40-0500 Body mass index (BMI) [Ratio] 37.97 kg/m2 Herberth Joana Other [facility] Other 11-17-2021 10:40-0500 Body temperature 97.8 [degF] Herberth Joana Other [facility] Other 11-17-2021 10:40-0500 Body weight 103.51 kg Herberth Joana Other [facility] Other 11-17-2021 10:40-0500 Diastolic blood pressure 70 mm[Hg] Herberth Joana Other [facility] Other 11-17-2021 10:40-0500 Respiratory rate 18 /min Herberth Joana Other [facility] Other 11-17-2021 10:40-0500 SaO2% (BldA) [Mass fraction] 94 % Herberth Joana Other [facility] Other 11-17-2021 10:40-0500 Systolic blood pressure 130 mm[Hg] Herberth Joana Other [facility] Other 08-30-2021 13:15-0400 Body height 165.1 cm Rena Ginty Other [facility] Other 08-30-2021 13:15-0400 Body mass index (BMI) [Ratio] 36.61 kg/m2 Rena Ginty Other [facility] Other 08-30-2021 13:15-0400 Body temperature 98.7 [degF] Rena Ginty Other [facility] Other 08-30-2021 13:15-0400 Body weight 99.79 kg Rena Ginty Other [facility] Other 08-30-2021 13:15-0400 SaO2% (BldA) [Mass fraction] 90 % Rena Ginty Other [facility] Other Clinical Notes 08-30-2021 to 09-07-2023 Note Date & Type Note Facility 09-07-2023 Evaluation note Encounter Date Diagnosis Assessment Notes Sep, Hypomagnesemia (ICD-10 - E83.42) [facility] Other [id number] Evaluation note* Encounter Date Diagnosis Assessment Notes Treatment Notes Treatment Clinical Notes Aug, Nico hy kid w cr kid I-IV (ICD-10 - I12.9) [facility] Other 10-12-2023 Evaluation note* Encounter Date Diagnosis [...] PPI induced GI losses. Continue oral Magnesium [facility] Chief Complaint: Patient here for 1 year follow up CAD and hypertension. She was recently discharged from [facility] for Covid-19. She says hydrochlorothiazide was [...] breath since then. She has seen her sports lawyer. Her chest pain is noncardiac. She has [...] 325 mg by mouth., Disp: , Rfl: dqyvumgfsyr-rvhqafqge-hsgqvwvf 100-62.5-25 mcg blister with device, , Disp: [...] CTAB, no increased eff (more content not included)...[facility]05-19-2023 NotePROCEDURE: XR HIP RT 2 3V W PELVIS HISTORY: Pain in right hip joint , chronic COMPARISON: XR L-spine 02/26/2019, XR left hip with pelvis 03/11/2017 FINDINGS: BONES:Complete loss of the right hip joint space with hcgv-ot-xcgb articulation, subchondral sclerosis and cysts, and large periarticular degenerative osteophytes. No fracture or dislocation. Left hip replacement. Mechanical fusion of L5-S1 and moderate dextroscoliosis of lumbar spine. SOFT TISSUES:No visible soft tissue swelling. EFFUSION:None visible. OTHER: Negative. IMPRESSION: 1. Marked degenerative joint disease of the right hip; progressed since prior study. 2. Stable surgical changes. Electronically authenticated by: STEPH GRANADOS Date: 2023-03-24 12:55[facility]05-18-2023 NoteSubjective 03/23/23 Diana Champion is a [...] LIGATION Past Medical History: Diagnosis Date Cancer ([facility]) Hypertension Objective General: Body mass index is [...] from the patient's PCP as well as sports lawyer for a right anterior total hip arthroplasty. [...] may be an additional personal documentation from me.[facility]04-27-2023 Evaluation note* Encounter Date Diagnosis Assessment [...] PPI induced GI losses. Continue oral Magnesium [facility] Other 02-02-2023 Procedure [facility]01-04-2023 Evaluation note* Encounter Date Diagnosis Assessment Notes Treatment Notes Treatment Clinical Notes Nov, Hypokalemia (ICD-10 - E87.6) Nov, Hypomagnesemia (ICD-10 - E83.42) [facility] Other 10-04-2022 Evaluation note* Encounter Date Diagnosis [...] office does not accept her new insurance. [facility] Other 09-02-2022 Evaluation note* Encounter Date Diagnosis Assessment Notes Treatment Notes Treatment Clinical Notes Jul, History of colon cancer (ICD-10 - Z85.038) [facility] Other 01-12-2022 Evaluation note* Encounter Date Diagnosis [...] potassium wasting. I have prescribed oral potassium. [facility] Other 10-25-2021 Evaluation note* Encounter Date Diagnosis [...] Patient care instructions given in writting by [facility] Care At Home document [facility] Other Evaluation noteNo InformationNort [facility] Other Evaluation note* Diagnosis Onset Date Resolution Status History of colon cancer acut e [facility] Work Phone: Evaluation note* Diagnosis Onset Date Resolution Status Hypokalemia acute Hypomagnesemia acute Stage 3 chronic kidney disease acute COVID noneactive Pneumonia noneactive [facility] Work Phone: History general Narrative - Reported* [...] IN 08/2019 Hospitalization History HIP REVISION 03/2020 [facility] Other [facility] general Narrative - Reported* Type Description Date [...] Surgical History (R) TKA - DR SERRATO 12/13/201 8 Surgical History 1 INCH OF BONE OFF OF RIGHT BALTA T 2014 Surgical History LEFT HIP RESVISION 03/2020 Hospitalization History see above 2003,198 7 Hospitalization History 1 week during chemo 2003 Hospitalization History ISSUE WITH HIP C OMING OUT AND NEEDING TO PUT IT BACK IN 08/2019 Hospitalization History HIP REVISION 03/2020 Hospitalization History COVID X 2 WEEKS 04/2023 [facility] Other Hospital Discharge instructions Additional Instructions DISCHARGE [...] if you have any problems. -Office number [phone] Work Phone: Advance Directives No [...] any alcohol or drug abuse patient.[facility] Center[facility] the event this information is protected by the Federal Confidentiality of Alcohol and Drug Abuse Patient Records regulations: The Federal rules restrict any use of the information to criminally investigate or prosecute any alcohol or drug abuse patient.[facility] CenterIn the event this information is protected by the Federal Confidentiality of Alcohol and Drug Abuse Patient Records regulations: The Federal rules restrict any use of the information to criminally investigate or prosecute any alcohol or drug abuse patient.[facility] CenterIn the event this information is protected by the Federal Confidentiality of Alcohol and Drug Abuse Patient Records regulations: The Federal rules restrict any use of the information to criminally investigate or prosecute any alcohol or drug abuse patient.[facility] INFORMATION SOURCE (unrecogn ized section and content) DATE CREATED AUTHOR 03/03/2022 [facility] DATE CREATED AUTHOR AUTHOR'S ORGANIZ ATION 04/17/2023 [facility] DATE CREATED AUTHOR AUTHOR'S ORGANIZ ATION 05/08/2023 [facility] DATE CREATED AUTHOR AUTHOR'S ORGANIZ ATION 06/07/2023 [facility] DATE CREATED AUTHOR AUTHOR'S ORGANIZ ATION 02/28/2024 [facility] DATE CREATED AUTHOR AUTHOR'S ORGANIZ ATION 04/18/2024 [facility] EPIC REASON FOR VISIT (unrecogniz ed section and content) #14 BLACK ALICIA, COUGH, CONGES TIONCKDCLINICALNo InformationCKD and HYpokalemiaClinicalClinicalCKD and HTNCKD and HTNREFILLREFILL Care Teams (unrecognized sec tion and content) Team Status: Inactive Member Role Status Dates Gato Domingo MD Attending Provider Active Shaikh Lev MD Primary Care Provider Active Team Status: Active Member Role Status Dates tSeph Collier Attending Provider Active Team Status: Active Member Role Status Dates Shaikh Lev MD Primary Care Provider Active Team Status: Active Member Role Status Dates Steph Collier Attending Provider Active Start: Paolo wing 2003 Team Status: Active Member Role Status Dates Steph Collier Attending Provider Active Start: Paolo leach2003 Team Status: Active Member Role Status Dates Herberth Rivera MD Attending Provider Active Start : March 06, 2024 Shaikh Lev MD Primary Care Provider Active Start: March 06, 2024 Team Status: Inactive Member Role Status Dates Shaikh Lev MD Primary Care Provider Active Start: March 14, 2024 End: March 14, 2024 Herberth Rivera MD Attending Provider Active Start : March [...] BE BASED ON THE PRIMARY CLINICAL RECORDS. [employer] provides no warranty or guarantee of the accuracy or completeness of information in this document.
== END 2024-04-24 08:27 | disposition home or self-care (01) ==
LOC: PM 08:27
PROVIDERS: PCP Internal Medicine; Visit Provider Nurse Practitioner
DX: M47.814 Spondylosis without myelopathy or radiculopathy, thoracic region (principal); M48.062 Spinal stenosis, lumbar region with neurogenic claudication; M54.16 Radiculopathy, lumbar region; M47.816 Spondylosis without myelopathy or radiculopathy, lumbar region; M96.1 Postlaminectomy syndrome, not elsewhere classified; M16.11 Unilateral primary osteoarthritis, right hip; Z79.891 Long term (current) use of opiate analgesic; Z99.81 Dependence on supplemental oxygen; M79.18 Myalgia, other site
CPT/HCPCS: G0463

== ENCOUNTER 2024-05-06 08:53 | Day surgery (SDC) | payer OTHER, SELFPAY ==
--- OUTSIDE RECORDS SUMMARY | 2024-05-06 09:15 | XMS_ITS | CCD ---
Author Organization [facility] Care Team Providers Care Pick Up Man Name Role Phone Steph Collier Attending Provider Unavailable Chantel Rainey Primary Care Provider Unavailabl e Joana, Herberth Attending Provider Unavailable Unavailable Primary Care Provider Unavailabl e UNKNOWN, PHYSICIAN Referring Unavailable JOO LINN Attending Unavailable JOO LINN Admitting Unavailable UNKNOWN, PHYSICIAN Primary Care Unavailable Rena Hurd Unavailable Joana, Herberth Unavailable Gato Domingo Unavailable [phone] Steph Collier Attending Provider MD Gato Domingo Attending Provider [phone] MD Nicky Ohara Primary Care Provider [phone] Gilma Trent Unavailable JOANA, HERBERTH Attending Unavailable JOANA, HERBERTH Admitting Unavailable FAWWAD, SAUNDERS H Primary Care Unavailable JOANA, HERBERTH Consulting Unavailable SAMSA ., BO Admitting Unavailable FAWWAD, SAUNDERS H Primary Care Unavailable FAJavonWAD, SAUNDERS H Consulting Unavailable BO MCKINNON Attending Unavailable BRITTANY GALDAMEZ Consulting Unavailable ISABEL ., DR SANTIAGO Admitting Unavailabl e KARASIK ., DR SANTIAGO Attending Unavailabl e KARASIK ., DR SANTIAGO Consulting Unavailabl e FAWWAD, SAUNDERS H Primary Care Unavailable MESA, DR BRITTANY Elizondo Consulting Unavailable MARTIREBBETH, DR STEPH Holland Consulting Unavailable KARASIK ., [...] Unavailable Gato Domingo Attending UnavailGato Chatterjee Admitting UnavailSteph Strong Attending Provider [phone] FAWWAD, SAUNDERS Attending Unavailable FAWWAD, SAUNDERS Attending Unavailable FAWWAD, SAUNDERS Attending Unavailable FAWWAD, SAUNDERS Attending Unavailable ROSHNI LEDESMA Attending Unavailable FAWWAD, SAUNDERS Attending Unavailable FAWWAD, SAUNDERS Attending Unavailable FAWWAD, SAUNDERS Attending Unavailable FAWWAD, SAUNDERS Attending Unavailable FAWWAD, SAUNDERS Attending Unavailable FAWWAD, SAUNDERS Attending Unavailable Alicia DRAPER, Jayshree Johnson Attending Unavailable Gieditis , Andlarisa Johnson Attending Unavailable Giedraitis , Andlarisa oJhnson Attending Unavailable Giedraitis , Andlarisa Johnson Attending Unavailable Giedraitis , Andlarisa Johnson Attending Unavailable Gieditis , Jayshree Johnson Attending Unavailable Unavailable Unavailable Unavailable Allergies Allergy Classification Reported Allergen(s) Allergy Type Date of Onset Reaction(s) Facility (4 sources) fentaNYL; Translations: [fentanyl] Drug Allergy 07-07-20 17 Hallucinating [facility] (2 sources) linezolid; Translations: [LINEZOLID] Drug Allergy 03-17-20 20 [facility] (20 sources) Vancomycin; Translations: [VANCOMYCIN] Drug Allergy 03-17-20 20 Unknown, Unknown Reaction [facility]ository (12 sources) DENIES METAL SENSITITIVITY Propensity to adverse reactions 03-14-20 24 Unknown, Unknown Reaction [facility] Medications Current Medications Medication Drug Class(es) Dates Sig (Normalized) Sig (Original) 30 ACTUAT fluticasone furoate 0.2 MG/ACTUAT / umeclidinium 0.0625 MG/ACTUAT / vilanterol 0.025 MG/ACTUAT Dry Powder Inhaler [Trelegy] (2 sources) take 1 puff(s) by inhalation once daily Trelegy Ellipta 200-62.5-25 MCG/INH 1 puff Inhalation Once a day Active [id number] 200 actuat albuterol 0.09 mg/actuat metered dose [...] 14, 2024 12:00am Start: 12-08-2022 End: 03-14-2024 Mfjvpqgimnd-Maynbwinz-Bbcxpz er (Trelegy Ellipta) 200-62.5-25 mcg blister with [...] 14, 2024 10:41am take 1 capsule by [facility] every twelve hours Omeprazole 20 MG 1 CAPSULE Orally TWICE A DAY Active take 1 capsule by [facility] once daily Omeprazole 20 MG 1 [...] Active Start: 08-05-2022 [facility] hours Potassium Chloride ER 20 MEQ 1 tablet with food Orally Twice a day for 90 days Jul, Active pramipexole dihydrochloride 0.25 mg oral tablet (4 sources) Nonergot Dopamine Agonist Start: 03-14-2024 take 0.25 mg by mouth once daily at bedtime Pramipexole Active 0.25 MG PO Daily at bedtime March 14, 2024 12:00am take 1 tablet by bessie every twenty-four hours Pramipexole Dihydrochloride 0.25 MG [...] 2024 12:00am take 1 tablet by bessie every twenty-four hours VESIcare 10 MG 1 [...] 1 puff(s) by inhalation twice daily Ipratropium [place] (Atrovent Hfa) 17 mcg/actuation Hfa Aerosol Inhaler [...] disorder, unspecified; Translations: [RESPIRATORY DISORDER UNSPECIFIED] Onset: 2022 Episodic Other screening for suspected conditions (not [...] distribution width (RBC) [Ratio] 13.2 % 11.0-15.0 [facility] Estimated glomerular filtrat ion rate (GFR) non- Americanon 03-06-2024 GFR/1.73 sq M.predicted among non-blacks MDRD (S/P/Bld) [Vol rate/Area] 57 mL/min/{1.73_m2} >=60 [facility] Hematocrit Auto (Bld) [Volum e fraction]on 03-06-2024 Hematocrit (Bld) [Volume fraction] 38.7 % 36.0-48.0 [facility] Hemoglobin [Mass/volume] in Bloodon 03-06-2024 Hemoglobin (Bld) [Mass/Vol] 12.2 g/dL 12.0-16.0 [facility] Laboratory - Chemistry and C hemistry - challengeon 03-06-2024 Albumin [Mass/Vol] 3.0 g/dL 3.4-5.0 [facility] Calcium [Mass/Vol] 8.8 mg/dL 8.5-10.1 [facility] Chloride [Moles/Vol] 104 mmol/L 98-107 [facility] CO2 [Moles/Vol] 32.2 mmol/L 21.0-32.0 [facility] Creatinine [Mass/Vol] 0.97 mg/dL 0.55-1.02 [facility] GFR/1.73 sq M.predicted MDRD (S/P/Bld) [Vol rate/Area] mL/min/{1.73_m2} >=60 [facility] Glucose [Mass/Vol] 67 mg/dL 74-106 [facility] Magnesium [Mass/Vol] 1.9 mg/dL 1.8-2.4 [facility] Potassium [Moles/Vol] 3.4 mmol/L 3.5-5.1 [facility] Sodium [Moles/Vol] 143 mmol/L 136-145 [facility] Urate [Mass/Vol] 5.0 mg/dL 2.6-6.0 [facility] Urea nitrogen [Mass/Vol] 16.0 mg/dL 7.0-18.0 [facility] Urea nitrogen/Creatinine [Mass ratio] 16.5 mg/mg [facility] Leukocytes [#/volume] correc melanie for nucleated erythrocytes in Blood by Automated counon 03-06-2024 WBC corrected for nucl RBC Auto (Bld) [#/Vol] 8.1 10 3/uL 4.0-11.0 [facility] MCH Auto (RBC) [Entitic mass ]on 03-06-2024 MCH (RBC) [Entitic mass] 30.4 pg 26.7-34.0 [facility] MCHC Auto (RBC) [Mass/Vol]on 03-06-2024 MCHC (RBC) [Mass/Vol] 31.5 g/dL 29.9-35.2 [facility] MCV Auto (RBC) [Entitic vol] on 03-06-2024 MCV (RBC) [Entitic vol] 96.5 fL 81.0-99.0 [facility] No Panel Informationon 03-06 Urine Random Creatinine 63.27 mg/dL 20.00-300.00 [facility] Urine Random Total Protein <6.0 mg/dL <=11.9 [facility] 25-Hydroxy Vitamin D Total 37.1 ng/mL [facility] Comment on above: <20 ng/mL Vit D defi cient20-<30 ng/mL Vit D izgsgoanzrzt20-753 ng/mL Vit D sufficient>100 ng/mL Potential Toxicity Parathyroid Hormone (Intact) 36 pg/mL 15-65 [facility] Comment on above: Performed at: - [address] [id number] Director: Raphael Marrero PhD, Phone: [phone] Phosphorus Level 3.2 mg/dL 2.6-4.7 [facility] Platelet mean volume Auto (B ld) [Entitic vol]on 03-06-2024 Platelet mean volume (Bld) [Entitic vol] 9.1 fL 9.5-13.5 [facility] Platelets Auto (Bld) [#/Vol] on 03-06-2024 Platelets (Bld) [#/Vol] 247 10 3/uL 150-450 [facility] RBC Auto (Bld) [#/Vol]on RBC (Bld) [#/Vol] 4.01 10 6/uL 4.20-5.40 [facility] Serum or plasma anion gap de terminationon 03-06-2024 Anion gap [Moles/Vol] 10.2 mmol/L [facility] Follow-Upon 05-08-2023 Follow-Up [id number] Nell Champion 1955 F Date Provider Department Center 05/08/2023 Siddharth-HETAL SCALES CARD [facility] Family History Problem Relation Age of Onset Heart failure Mother Heart disease Father Family Status - Relation Status Age at Mother Father Level of Service:95244 [place] OFFICE/OUTPATIENT ESTABLISHED LOW MDM 20-29 MIN Normal [facility] 05-03-2023 37 PATIENT CALLED TO CANCEL SURGERY FOR July D/T HER LUNG DISEASE. WILL CALL TO RESCHEDULE WHEN FULLY HEALED FROM LUNGS AND CLEARED//[facility] Normal [facility] 3604-19-2023 36 FYI CALLED PATIENT T O F/U ON MEDICAL AND PULMONARY CLEARANCES FOR R ELZA ON 05/19 AND PRE-OP RIYA'T 04/27 WITH US AND PATIENT IS CURRENTLY INPATIENT SINCE LAST WEEK D/T COVID AND PULMONARY ISSUES, SHE WILL CALL US ON 04/25 WITH PROGRESS, PLEASE ADVISE IF WE SHOULD CANCEL SURGERY FOR NOW..THANKS//[facility] Normal [facility] SYMPTOMATIC COVID-19 ANTIGEN on 04-04-2023 EUA Statement SEE BELOW Normal [facility] [...] By: #### C VDAGS #### [facility] [address] [place] [address] Dr. Shayne Roldan SARS-CoV-2 (COVID-19) RNA KAYLEE+probe Ql (Unsp spec) Positive Abnormal NEGATIVE [facility] Comment on above: Performed By: #### C VDAGS #### [facility] [address] [place] [address] Dr. Shayne Roldan XR LSPINE 2_3 VIEWSon [...] Date: 2023-03-24 12:52 Normal [facility] PTH INTACTon 02-27-2023 PTH, Intact 87 pg/mL Critically high 15-65 [facility] Comment on above: Performed By: #### P THINT #### [facility] [address] [place] [address] Dr. Shayne Roldan HEMOGRAM AND PLATELon 2022 Hematocrit (Bld) [Volume fraction] 44.4 % Normal 36.0-48.0 [facility] Comment on above: Performed By: #### H H #### [facility] [address] [place] [address] Dr. Shayne Roldan Hemoglobin (Bld) [Mass/Vol] 14.5 g/dL Normal 12.0-16.0 [facility] Comment on above: Performed By: #### H H #### [facility] [address] [place] [address] Dr. Shayne Roldan MCH (RBC) [Entitic mass] 30.3 pg Normal 26.7-34.0 [facility] Comment on above: Performed By: #### H H #### [facility] [address] [place] [address] Dr. Shayne Roldan MCHC (RBC) [Mass/Vol] 32.7 g/dL Normal 29.9-35.2 [facility] Comment on above: Performed By: #### H H #### [facility] [address] [place] [address] Dr. Shayne Roldan MCV (RBC) [Entitic vol] 92.9 fL Normal 81.0-99.0 [facility] Comment on above: Performed By: #### H H #### [facility] [address] [place] [address] Dr. Shayne Roldan PLT 367 103/ul Normal 150-450 [facility] Comment on above: Performed By: #### H H #### [facility] [address] [place] [address] Dr. Shayne Roldan RBC 4.78 106/ul Normal 4.20-5.40 [facility] Comment on above: Performed By: #### H H #### [facility] [address] [address] [address] Shayne Roldan WBC 9.9 103/ul Normal 4.0-11.0 [facility] Comment on above: Performed By: #### H H #### [facility] [address] [place] [address] Dr. Shayne Roldan MAGNESIUMon 02-25-2023 Magnesium [Mass/Vol] 1.6 mg/dL Critically low 1.8-2.4 [facility] Comment on above: Performed By: #### M G, RENAL, URIC #### [facility] [address] [place] [address] Dr. Shayne Roldan RENAL FUNCTION PANELon 02-25 Albumin [Mass/Vol] 3.4 g/dL Normal 3.4-5.0 [facility] Comment on above: Performed By: #### M G, RENAL, URIC #### [facility] [address] [place] [address] Dr. Shayne Roldan Calcium [Mass/Vol] 8.7 mg/dL Normal 8.5-10.1 [facility] Comment on above: Performed By: #### M G, RENAL, URIC #### [facility] [address] [place] [address] Dr. Shayne Roldan Chloride [Moles/Vol] 104 mmol/L Normal 98-107 [facility] Comment on above: Performed By: #### M G, RENAL, URIC #### [facility] [address] [place] [address] Dr. Shayne Roldan CO2 [Moles/Vol] 25.9 mmol/L Normal 21.0-32.0 [facility] Comment on above: Performed By: #### M G, RENAL, URIC #### [facility] [address] [place] [address] Dr. Shayne Roldan Creatinine [Mass/Vol] 1.19 mg/dL Critically high 0.55-1.02 [facility] Comment on above: Performed By: #### M G, RENAL, URIC #### [facility] [address] [address] [address] Shayne Roldan EGFR-AF BRAZILIAN 55 mL/min/1.73m2 Critically low >=60 [facility] Comment on above: Performed By: #### M G, RENAL, URIC #### [facility] [address] [place] [address] Dr. Shayne Roldan EGFR-NON AF BRAZILIAN 45 mL/min/1.73m2 Critically low >=60 [facility] Comment on above: Performed By: #### M G, RENAL, URIC #### [facility] [address] [place] [address] Dr. Shayne Roldan Glucose [Mass/Vol] 193 mg/dL Critically high 74-106 [facility] Comment on above: Performed By: #### M G, RENAL, URIC #### [facility] [address] [place] [address] Dr. Shayne Roldan Phosphate [Mass/Vol] 3.2 mg/dL Normal 2.6-4.7 [facility] Comment on above: Performed By: #### M G, RENAL, URIC #### [facility] [address] [place] [address] Dr. Shayne Roldan Potassium [Moles/Vol] 3.9 mmol/L Normal 3.5-5.1 [facility] Comment on above: Performed By: #### M G, RENAL, URIC #### [facility] [address] [place] [address] Dr. Shayne Roldan Sodium [Moles/Vol] 140 mmol/L Normal 136-145 [facility] Comment on above: Performed By: #### M G, RENAL, URIC #### [facility] [address] [place] [address] Dr. Shayne Roldan Urea nitrogen [Mass/Vol] 17.0 mg/dL Normal 7.0-18.0 [facility] Comment on above: Performed By: #### M G, RENAL, URIC #### [facility] [address] [place] [address] Dr. Shayne Roldan UA RANDOM W/MICROSCOPICon BACTERIA TRACE Abnormal NONE SEEN [facility] Comment on above: Performed By: #### M G, RENAL, URIC #### [facility] [address] [address] [address] Shayne Roldan Bilirubin Ql (U) Negative Normal NEGATIVE [facility] Comment on above: Performed By: #### M G, RENAL, URIC #### [facility] [address] [address] [address] Shayne Roldan CAST NONE SEEN Normal NONE SEEN [facility] Comment on above: Performed By: #### M G, RENAL, URIC #### [facility] [address] [address] [address] Shayne Roldan Clarity (U) CLEAR Normal CLEAR [facility] Comment on above: Performed By: #### M G, RENAL, URIC #### [facility] [address] [place] [address] Dr. Shayne Roldan Color (U) LT. YELLOW Normal YELLOW [facility] Comment on above: Performed By: #### M G, RENAL, URIC #### [facility] [address] [address] [address] Shayne Roldan Crystals LM Nom (Urine sed) NONE SEEN Normal NONE SEEN [facility] Comment on above: Performed By: #### M G, RENAL, URIC #### [facility] [address] [place] [address] Dr. Shayne Roldan Epithelial cells LM Ql (Urine sed) RARE Normal NONE SEEN /RARE [facility] Comment on above: Performed By: #### M G, RENAL, URIC #### [facility] [address] [address] [address] Shayne Roldan Glucose Ql (U) Negative Normal NEGATIVE [facility] Comment on above: Performed By: #### M G, RENAL, URIC #### [facility] [address] [place] [address] Dr. Shayne Roldan Hemoglobin Ql (U) Negative Normal NEGATIVE [facility] Comment on above: Performed By: #### M G, RENAL, URIC #### [facility] [address] [address] [address] Shayne Roldan Ketones Ql (U) Negative Normal NEGATIVE [facility] Comment on above: Performed By: #### M G, RENAL, URIC #### [facility] [address] [address] [address] Shayne Roldan LEUKOCYTES Negative Normal NEGATIVE [facility] Comment on above: Performed By: #### M G, RENAL, URIC #### [facility] [address] [address] [address] Shayne Roldan MUCOUS NONE SEEN Normal NONE SEEN [facility] Comment on above: Performed By: #### M G, RENAL, URIC #### [facility] [address] [address] [address] Shayne Roldan Nitrite Ql (U) Negative Normal NEGATIVE [facility] Comment on above: Performed By: #### M G, RENAL, URIC #### [facility] [address] [address] [address] Shayne Roldan pH (U) 5.0 [pH] Normal 5-9 [facility] Comment on above: Performed By: #### M G, RENAL, URIC #### [facility] [address] [address] [address] Shayne Roldan RBC 0-2 Normal 0-2 [facility] Comment on above: Performed By: #### M G, RENAL, URIC #### [facility] [address] [address] [address] Shayne Roldan SPEC GRAVITY 1.025 Normal 1.005-<=1.025 [facility] Comment on above: Performed By: #### M G, RENAL, URIC #### [facility] [address] [address] [address] Shayne Roldan UA PROTEIN Negative Normal NEGATIVE/ TRACE [facility] Comment on above: Performed By: #### M G, RENAL, URIC #### [facility] [address] [address] [address] Shayne Roldan Urobilinogen Qn (U) 0.2 {Rogelio'U}/dL Normal 0.2 - 1. 0 [facility] Comment on above: Performed By: #### M G, RENAL, URIC #### [facility] [address] [address] [address] Shayne Roldan WBC 0-2 Abnormal NONE SEEN [facility] Comment on above: Performed By: #### M G, RENAL, URIC #### [facility] [address] [address] [address] Shayne Roldan URIC ACID SERUMon 02-25-2023 Urate [Mass/Vol] 6.1 mg/dL Critically high 2.6-6.0 [facility] Comment on above: Performed By: #### M G, RENAL, URIC #### [facility] [address] [address] [address] Shayne Roldan URINE T PROTEIN CREAT RATIOo n 02-25-2023 Protein (U) [Mass/Vol] 13.0 mg/dL Critically high <=12.0 [facility] Comment on above: Performed By: #### M G, RENAL, URIC #### [facility] [address] [place] [address] Dr. Shayne Roldan UR PROT CREAT RAT 0.16 Normal [facility] Comment on above: Performed By: #### M G, RENAL, URIC #### [facility] [address] [address] [address] Shayne Roldan URINE CREAT 83.60 mg/dL Normal 20.00-300.00 [facility] Comment on above: Performed By: #### M G, RENAL, URIC #### [facility] [address] [address] [address] Shayne Roldan VITAMIN D 25 OHon 02-25-2023 VIT D 25-OH 41.6 ng/mL Normal [facility] Comment on above: Performed By: #### M G, RENAL, URIC #### [facility] [address] [place] [address] Dr. Shayne Roldan VIT D RANGES SEE BELOW Normal [facility] Comment on above: Result Comment: <20 ng/mL Vit D deficient 20 - <30 ng/mL Vit D insufficient 30 - 100 ng/mL Vit D sufficient >100 ng/mL Potential Toxicity Performed By: #### M G, RENAL, URIC #### [facility] [address] [id number] [address] Shayne Roldan XR CHEST 2 Von [...] by: BRITTANY GALDAMEZ Date: 2023-02-22 16:15 Normal [facility] MAMM SCREEN 3D PRATEEK CADon 12-15-2022 MAMM SCREEN 3D PRATEEK CAD Patient: DIANA CHAMPION Exam Date: 12/15/2022 : 1955 Gender:F Ordering : DR JACK HALL . Admission #: [id number] Family : Order #: [id number] CLICK HERE TO VIEW EXAM RADIOLOGY REPORT PROCEDURE: MAMMOGRAM SCREENING 3D BILATERAL CAD COMPARISON: MAMM SCREEN 3D PRATEEK CAD, 11/26/2021. INDICATIONS: Calculator Name NCI Breast Cancer Risk Assessment Tool 5 Year Breast Cancer Risk 1.20% Lifetime Breast Cancer Risk 4.40% Personal Breast Cancer No Personal Ovarian Cancer No Treatments Excision, radiation, chemotherapy Family Cancers None LOCATION: [facility] BREAST COMPOSITION: Almost entirely fatty. [...] Walters MD on 12/15/2022 at 10:51 Normal [facility] XR DEXA BONE DENSITYon 12-15 [...] GRANADOS Date: 2022-12-15 09:50 Normal [facility] 12-08-2022 L - -------- Specimen: [id number] Received: 12/08/22 Status: CELIA Eliza Num: [id number] Spec Type: Surgical Subm Dr: Gato Domingo MD Tissues: A Colon Biopsy (DESC COL POLYP) Procedures: HE/2, Gross/Micro L4 -------- Age/ Patient Sex Location Account Attending Physician -------- Diana Champion Meng 67/F [id number] Gato Domingo MD -------- SPEC NUM: [id number] RECD: 12/08/22 STATUS: CELIA KAY NUM: [id number] KENDRA: 12/08/[address] [facility] [address]: Gato Domingo MD ENTERED: 12/08/[address]: KHRIS TYPE: Surgical DEPT: S ENTERED BY: [id number] RECV BY: [id number] ORDERED: HE/2, Gross/Micro L4 ORDERED: HE/2, Gross/Micro [...] support the above pathologic diagnosis. CPT Codes 39968 -------- -------- Specimen: [id number] Received: 12/08/22 Status: CELIA Kay Num: [id number] Spec Type: Surgical Subm Dr: Gato Domingo MD Tissues: A Colon Biopsy (DESC COL POLYP) Procedures: HE/2, Gross/Micro L4 -------- Patient: Diana Champion [id number] (Continued) -------- Signed (signature on file) Eunice Rosa MD 12/09/22 1053 [facility] PAP ACOG PANEL 2: 30 to 65on 11-16-2022 . . Normal [facility] Comment on above: Performed By: #### [id number] #### [facility] [address] [place] [address] Dr. Shayne Roldan Age Gdln ACOG Testing Comment Normal [facility] Comment on above: Result Comment: <21 or >65 or no age provided Performed By: #### [id number] #### [facility] [address] [place] [address] Dr. Shayne Roldan DIAGNOSIS: Comment [facility] Comment on above: Result Comment: NEGA TIVE FOR INTRAEPITHELIAL LESION OR MALIGNANCY. Performed By: #### [id number] #### [facility] [address] [place] [address] Dr. Shayne Roldan Methodology: Comment Normal [facility] Comment on above: Result Comment: This liquid based ThinPrep(R) pap test was screened with the use of an image guided system. Performed By: #### [id number] #### [facility] [address] [place] [address] Dr. Shayne Roldan Note: Comment Normal [facility] Comment on above: Result Comment: The Pap smear is a screening test designed to aid in the detection of premalignant and malignant conditions of the uterine cervix. It is not a diagnostic procedure and should not be used as the sole means of detecting cervical cancer. Both false-positive and false-negative reports do occur. . Performed By: #### [id number] #### [facility] [address] [place] [address] Dr. Shayne Roldan Performed by: Comment Normal [facility] Comment on above: Result Comment: Onur Aguilar [employer] (ASCP) Performed By: #### [id number] #### [facility] [address] [place] [address] Dr. Shayne Roldan Specimen adequacy: Comment Normal [facility] Comment on above: Result Comment: Sati sfactory for evaluation. Endocervical and/or squamous metaplastic cells (endocervical component) are present. Performed By: #### [id number] #### [facility] [address] [place] [address] Dr. Shayne Roldan RENAL FUNCTION PANELon 08-19 Albumin [Mass/Vol] 3.4 g/dL Normal 3.4-5.0 [facility] Comment on above: Performed By: #### M G, RENAL, URIC #### [facility] [address] [place] [address] Dr. Shayne Roldan Calcium [Mass/Vol] 8.4 mg/dL Critically low 8.5-10.1 Th [facility] Comment on above: Performed By: #### M G, RENAL, URIC #### [facility] [address] [address] [address] Shayne Roldan Chloride [Moles/Vol] 103 mmol/L Normal 98-107 [facility] Comment on above: Performed By: #### M G, RENAL, URIC #### [facility] [address] [address] [address] Shayne Roldan CO2 [Moles/Vol] 27.8 mmol/L Normal 21.0-32.0 [facility] Comment on above: Performed By: #### M G, RENAL, URIC #### [facility] [address] [address] [address] Shayne Roldan Creatinine [Mass/Vol] 1.02 mg/dL Normal 0.55-1.02 [facility] Comment on above: Performed By: #### M Poncho, RENAL, URIC #### [facility] [address] [address] [address] Shayne Roldan EGFR-AF BRAZILIAN >60 Normal >=60 [facility] Comment on above: Performed By: #### M G, RENAL, URIC #### [facility] [address] [address] [address] Shayne Roldan EGFR-NON AF BRAZILIAN 54 mL/min/1.73m2 Critically low >=60 [facility] Comment on above: Performed By: #### M G, RENAL, URIC #### [facility] [address] [address] [address] Shayne Roldan Glucose [Mass/Vol] 110 mg/dL Critically high 74-106 [facility] Comment on above: Performed By: #### M G, RENAL, URIC #### [facility] [address] [address] [address] Shayne Roldan Phosphate [Mass/Vol] 2.3 mg/dL Critically low 2.6-4.7 [facility] Comment on above: Performed By: #### M G, RENAL, URIC #### [facility] [address] [address] [address] Shayne Roldan Potassium [Moles/Vol] 3.2 mmol/L Critically low 3.5-5.1 [facility] Comment on above: Performed By: #### M G, RENAL, URIC #### [facility] [address] [address] [address] Shayne Roldan Sodium [Moles/Vol] 138 mmol/L Normal 136-145 [facility] Comment on above: Performed By: #### M G, RENAL, URIC #### [facility] [address] [place] [address] Dr. Shayne Roldan Urea nitrogen [Mass/Vol] 14.0 mg/dL Normal 7.0-18.0 [facility] Comment on above: Performed By: #### M G, RENAL, URIC #### [facility] [address] [place] [address] Dr. Shayne Roldan PTH INTACTon 08-06-2022 PTH, Intact 40 pg/mL Normal 15-65 [facility] Comment on above: Performed By: #### M G, RENAL, URIC #### [facility] [address] [place] [address] Dr. Shayne Roldan HEMOGRAM AND PLATELon 2021 Hematocrit (Bld) [Volume fraction] 39.8 % Normal 36.0-48.0 [facility] Comment on above: Performed By: #### M G, RENAL, URIC #### [facility] [address] [place] [address] Dr. Shayne Roldan Hemoglobin (Bld) [Mass/Vol] 13.4 g/dL Normal 12.0-16.0 [facility] Comment on above: Performed By: #### M G, RENAL, URIC #### [facility] [address] [place] [address] Dr. Shayne Roldan MCH (RBC) [Entitic mass] 30.5 pg Normal 26.7-34.0 [facility] Comment on above: Performed By: #### M G, RENAL, URIC #### [facility] [address] [place] [address] Dr. Shayne Roldan MCHC (RBC) [Mass/Vol] 33.7 g/dL Normal 29.9-35.2 [facility] Comment on above: Performed By: #### M G, RENAL, URIC #### [facility] [address] [address] [address] Shayne Roldan MCV (RBC) [Entitic vol] 90.5 fL Normal 81.0-99.0 [facility] Comment on above: Performed By: #### M G, RENAL, URIC #### [facility] [address] [address] [address] Shayne Roldan PLT 299 103/ul Normal 150-450 [facility] Comment on above: Performed By: #### M G, RENAL, URIC #### [facility] [address] [address] [address] Shayne Roldan RBC 4.40 106/ul Normal 4.20-5.40 [facility] Comment on above: Performed By: #### M G, RENAL, URIC #### [facility] [address] [place] [address] Dr. hSayne Roldan WBC 8.8 103/ul Normal 4.0-11.0 [facility] Comment on above: Performed By: #### M G, RENAL, URIC #### [facility] [address] [place] [address] Dr. Shayne Roldan MAGNESIUMon 08-05-2022 Magnesium [Mass/Vol] 1.5 mg/dL Critically low 1.8-2.4 [facility] Comment on above: Performed By: #### M G, RENAL, URIC #### [facility] [address] [place] [address] Dr. Shayne Roldan RENAL FUNCTION PANELon 08-05 Albumin [Mass/Vol] 3.5 g/dL Normal 3.4-5.0 [facility] Comment on above: Performed By: #### M G, RENAL, URIC #### [facility] [address] [address] [address] Shayne Roldan Calcium [Mass/Vol] 8.4 mg/dL Critically low 8.5-10.1 Th [facility] Comment on above: Performed By: #### M G, RENAL, URIC #### [facility] [address] [address] [address] Shayne Roldan Chloride [Moles/Vol] 101 mmol/L Normal 98-107 [facility] Comment on above: Performed By: #### M G, RENAL, URIC #### [facility] [address] [address] [address] Shayne Roldan CO2 [Moles/Vol] 29.5 mmol/L Normal 21.0-32.0 [facility] Comment on above: Performed By: #### M G, RENAL, URIC #### [facility] [address] [place] [address] Dr. Shayne Roldan Creatinine [Mass/Vol] 1.04 mg/dL Critically high 0.55-1.02 [facility] Comment on above: Performed By: #### M G, RENAL, URIC #### [facility] [address] [place] [address] Dr. Shayne Roldan EGFR-AF BRAZILIAN >60 Normal >=60 [facility] Comment on above: Performed By: #### M G, RENAL, URIC #### [facility] [address] [place] [address] Dr. Shayne Roldan EGFR-NON AF BRAZILIAN 53 mL/min/1.73m2 Critically low >=60 [facility] Comment on above: Performed By: #### M G, RENAL, URIC #### [facility] [address] [place] [address] Dr. Shayne Roldan Glucose [Mass/Vol] 92 mg/dL Normal 74-106 [facility] Comment on above: Performed By: #### M G, RENAL, URIC #### [facility] [address] [address] [address] Shayne Roldan Phosphate [Mass/Vol] 2.4 mg/dL Critically low 2.6-4.7 [facility] Comment on above: Performed By: #### M G, RENAL, URIC #### [facility] [address] [place] [address] Dr. Shayne Roldan Potassium [Moles/Vol] 2.8 mmol/L Critically low 3.5-5.1 [facility] Comment on above: Performed By: #### M G, RENAL, URIC #### [facility] [address] [place], [place] [id number] Dr. Shayne Roldan Sodium [Moles/Vol] 137 mmol/L Normal 136-145 [facility] Comment on above: Performed By: #### M G, RENAL, URIC #### [facility] [address] [place] [address] Dr. Shayne Roldan Urea nitrogen [Mass/Vol] 10.0 mg/dL Normal 7.0-18.0 [facility] Comment on above: Performed By: #### M G, RENAL, URIC #### [facility] [address] [place] [address] Dr. Shayne Roldan UA RANDOM W/MICROSCOPICon BACTERIA SMALL Abnormal NONE SEEN [facility] Comment on above: Performed By: #### U AMIC #### [facility] [address] [place] [address] Dr. Shayne Roldan Bilirubin Ql (U) Negative Normal NEGATIVE [facility] Comment on above: Performed By: #### U AMIC #### [facility] [address] [place] [address] Dr. Shayne Roldan CAST NONE SEEN Normal NONE SEEN [facility] Comment on above: Performed By: #### U AMIC #### [facility] [address] [place] [address] Dr. Shayne Roldan Clarity (U) CLEAR Normal CLEAR [facility] Comment on above: Performed By: #### U AMIC #### [facility] [address] [place] [address] Dr. Shayne Roldan Color (U) LT. YELLOW Normal YELLOW [facility] Comment on above: Performed By: #### U AMIC #### [facility] [address] [place] [address] Dr. Shayne Roldan Crystals LM Nom (Urine sed) NONE SEEN Normal NONE SEEN [facility] Comment on above: Performed By: #### U AMIC #### [facility] [address] [place] [address] Dr. Shayne Roldan Epithelial cells LM Ql (Urine sed) FEW Abnormal NONE SEEN /RARE [facility] Comment on above: Performed By: #### U AMIC #### [facility] [address] [address] [address] Shayne Roldan Glucose Ql (U) Negative Normal NEGATIVE [facility] Comment on above: Performed By: #### U AMIC #### [facility] [address] [address] [address] Shayne Roldan Hemoglobin Ql (U) Negative Normal NEGATIVE [facility] Comment on above: Performed By: #### U AMIC #### [facility] [address] [address] [address] Shayne Roldan Ketones Ql (U) Negative Normal NEGATIVE [facility] Comment on above: Performed By: #### U AMIC #### [facility] [address] [address] [address] Shayne Roldan LEUKOCYTES TRACE Abnormal NEGATIVE [facility] Comment on above: Performed By: #### U AMIC #### [facility] [address] [address] [address] Shayne Roldan MUCOUS NONE SEEN Normal NONE SEEN [facility] Comment on above: Performed By: #### U AMIC #### [facility] [address] [address] [address] Shayne Roldan Nitrite Ql (U) Negative Normal NEGATIVE [facility] Comment on above: Performed By: #### U AMIC #### [facility] [address] [address] [address] Shayne Roldan pH (U) 6.0 [pH] Normal 5-9 [facility] Comment on above: Performed By: #### U AMIC #### [facility] [address] [place] [address] Dr. Shayne Roldan RBC NONE SEEN Abnormal 0-2 [facility] Comment on above: Performed By: #### U AMIC #### [facility] [address] [address] [address] Shayne Roldan SPEC GRAVITY <=1.005 Abnormal 1.005-<=1.025 [facility] Comment on above: Performed By: #### U AMIC #### [facility] [address] [address] [address] Shayne Roldan UA PROTEIN Negative Normal NEGATIVE/ TRACE [facility] Comment on above: Performed By: #### U AMIC #### [facility] [address] [place] [address] Dr. Shayne Roldan Urobilinogen Qn (U) 0.2 {Rogelio'U}/dL Normal 0.2 - 1. 0 [facility] Comment on above: Performed By: #### U AMIC #### [facility] [address] [place] [address] Dr. Shayne Roldan WBC 5-10 Abnormal NONE SEEN [facility] Comment on above: Performed By: #### U AMIC #### [facility] [address] [place] [address] Dr. Shayne Roldan URIC ACID SERUMon 08-05-2022 Urate [Mass/Vol] 6.5 mg/dL Critically high 2.6-6.0 [facility] Comment on above: Performed By: #### M G, RENAL, URIC #### [facility] [address] [place] [address] Dr. Shayne Roldan URINE T PROTEIN CREAT RATIOo n 08-05-2022 Protein (U) [Mass/Vol] 4.8 mg/dL Normal <=12.0 [facility] Comment on above: Performed By: #### U RTPCR #### [facility] [address] [place] [address] Dr. Shayne Roldan UR PROT CREAT RAT 0.09 Normal [facility] Comment on above: Performed By: #### U RTPCR #### [facility] [address] [place] [address] Dr. Shayne Roldan URINE CREAT 52.65 mg/dL Normal 20.00-300.00 [facility] Comment on above: Performed By: #### U RTPCR #### [facility] [address] [place] [address] Dr. Shayne Roldan VITAMIN D 25 OHon 08-05-2022 VIT D 25-OH 38.9 ng/mL Normal [facility] Comment on above: Performed By: #### M G, RENAL, URIC #### [facility] [address] [address] [address] Shayne Roldan VIT D RANGES SEE BELOW Normal [facility] Comment on above: Result Comment: <20 ng/mL Vit D deficient 20 - <30 ng/mL Vit D insufficient 30 - 100 ng/mL Vit D sufficient >100 ng/mL Potential Toxicity Performed By: #### M G, RENAL, URIC #### [facility] [address] [address] [address] Shayne Roldan IMMUNOGLOBULINS IGA/IGM/IGG/ IGE QUANTITAon 07-12-2022 Immunoglobulin A, Qn, Serum 295 mg/dL Normal 87-352 [facility] Comment on above: Result Comment: Perf ormed at: CB Performed By: #### M G, RENAL, URIC #### [facility] [address] [address] [address] Shayne Roldan Immunoglobulin E, Total 32 IU/mL Normal 6-495 [facility] Comment on above: Result Comment: Perf ormed at: BN Performed By: #### M G, RENAL, URIC #### [facility] [address] [address] [address] Shayne Roldan Immunoglobulin G, Qn, Serum 729 mg/dL Normal 586-1602 [facility] Comment on above: Result Comment: Perf ormed at: CB Performed By: #### M G, RENAL, URIC #### [facility] [address] [address] [address] Shayne Roldan Immunoglobulin M, Qn, Serum 75 mg/dL Normal 26-217 [facility] Comment on above: Result Comment: Perf ormed at: CB Performed By: #### M G, RENAL, URIC #### [facility] [address] [address] [address] Shayne Roldan Abstracton 07-08-2022 Abstract [id number] Nell Champion 1955 F Date Provider Department Center 07/08/2022 JOHANNA MEDINA [facility] Family History Problem Relation Age of Onset Heart failure Mother Heart disease Father Family Status - Relation Status Age at Mother Father Normal [facility] CBC AUTO DIFFon 07-05-2022 BASO # 0.1 103/ul Normal 0.0-0.1 [facility] Comment on above: Performed By: #### M G, RENAL, URIC #### [facility] [address] [place] [address] Dr. Shayne Roldan Basophils/100 WBC (Bld) 0.7 % Normal 0.2-2.0 [facility] Comment on above: Performed By: #### M G, RENAL, URIC #### [facility] [address] [place] [address] Dr. Shayne Roldan EO # 0.4 103/ul Normal 0.0-0.7 [facility] Comment on above: Performed By: #### M G, RENAL, URIC #### [facility] [address] [place] [address] Dr. Shayne Roldan Eosinophils/100 WBC (Bld) 4.4 % Normal 0.9-7.0 [facility] Comment on above: Performed By: #### M G, RENAL, URIC #### [facility] [address] [place] [address] Dr. Shayne Roldan Erythrocyte distribution width (RBC) [Ratio] 12.6 % Normal 11.0-15.0 [facility] Comment on above: Performed By: #### M G, RENAL, URIC #### [facility] [address] [place] [address] Dr. Shayne Roldan Hematocrit (Bld) [Volume fraction] 40.2 % Normal 36.0-48.0 [facility] Comment on above: Performed By: #### M G, RENAL, URIC #### [facility] [address] [place] [address] Dr. Shayne Roldan Hemoglobin (Bld) [Mass/Vol] 13.6 g/dL Normal 12.0-16.0 [facility] Comment on above: Performed By: #### M G, RENAL, URIC #### [facility] [address] [place] [address] Dr. Shayne Roldan IG # 0.07 10e3/ul Critically high 0.00-0.03 [facility] Comment on above: Performed By: #### M G, RENAL, URIC #### [facility] [address] [address] [address] Shayne Roldan IG % 0.8 % Critically high 0.0-0.5 [facility] Comment on above: Performed By: #### M G, RENAL, URIC #### [facility] [address] [address] [address] Shayne Roldan LYMPH # 2.3 103/ul Normal 1.2-3.8 [facility] Comment on above: Performed By: #### M G, RENAL, URIC #### [facility] [address] [address] [address] Shayne Roldan Lymphocytes/100 WBC (Bld) 24.7 % Normal 20.5-60.0 [facility] Comment on above: Performed By: #### M G, RENAL, URIC #### [facility] [address] [address] [address] Shayne Roldan MANUAL DIFF REQ NO Normal [facility] Comment on above: Performed By: #### M G, RENAL, URIC #### [facility] [address] [address] [address] Shayne Roldan MCH (RBC) [Entitic mass] 30.7 pg Normal 26.7-34.0 [facility] Comment on above: Performed By: #### M G, RENAL, URIC #### [facility] [address] [address] [address] Shayne Roldan MCHC (RBC) [Mass/Vol] 33.8 g/dL Normal 29.9-35.2 [facility] Comment on above: Performed By: #### M G, RENAL, URIC #### [facility] [address] [address] [address] Shayne Roldan MCV (RBC) [Entitic vol] 90.7 fL Normal 81.0-99.0 [facility] Comment on above: Performed By: #### M G, RENAL, URIC #### [facility] [address] [address] [address] Shayne Roldan MONO # 0.7 103/ul Normal 0.3-0.8 [facility] Comment on above: Performed By: #### M G, RENAL, URIC #### [facility] [address] [place] [address] Dr. Shayne Roldan Monocytes/100 WBC (Bld) 7.7 % Normal 1.7-12.0 [facility] Comment on above: Performed By: #### M G, RENAL, URIC #### [facility] [address] [place] [address] Dr. Shayne Roldan NEUT # 5.7 103/ul Normal 1.4-6.5 [facility] Comment on above: Performed By: #### M G, RENAL, URIC #### [facility] [address] [place] [address] Dr. Shayne Roldan Neutrophils/100 WBC (Bld) 61.7 % Normal 43.0-75.0 [facility] Comment on above: Performed By: #### M G, RENAL, URIC #### [facility] [address] [place] [address] Dr. Shayne Roldan Platelet mean volume (Bld) [Entitic vol] 8.8 fL Critically low 9.5-13.5 [facility] Comment on above: Performed By: #### M G, RENAL, URIC #### [facility] [address] [place] [address] Dr. Shayne Roldan PLT 279 103/ul Normal 150-450 [facility] Comment on above: Performed By: #### M G, RENAL, URIC #### [facility] [address] [place] [address] Dr. Shayne Roldan RBC 4.43 106/ul Normal 4.20-5.40 [facility] Comment on above: Performed By: #### M G, RENAL, URIC #### [facility] [address] [place] [address] Dr. Shayne Roldan WBC 9.1 103/ul Normal 4.0-11.0 [facility] Comment on above: Performed By: #### M G, RENAL, URIC #### [facility] [address] [place] [address] Dr. Shayne Roldan Covid-19 PCR (CVDTBH)on SARS-CoV-2 (COVID-19) RNA KAYLEE+probe Ql (Unsp spec) Not detected Normal NOT DETECTED [facility] Comment on above: Result Comment: This test is not yet approved or cleared by the [place] FDA. When there are no FDA-approved or cleared tests available, and other criteria are met, FDA can make tests available under an emergency access mechanism called an Emergency Use Authorization (EUA). The EUA for this test is supported by the [employer] of Health and Human Service's (HHS's) declaration [...] M G, RENAL, URIC #### [facility] [address] [place] [address] Dr. Shayne Roldan XR CHEST 2 Von [...] Date: 2022-06-08 19:58 Normal [facility] Covid-19 PCR (CVDTB)on SARS-CoV-2 (COVID-19) RNA KAYLEE+probe Ql (Unsp spec) Not detected Normal NOT DETECTED [facility] Comment on above: Result Comment: This test is not yet approved or cleared by the [place] FDA. When there are no FDA-approved or cleared tests available, and other criteria are met, FDA can make tests available under an emergency access mechanism called an Emergency Use Authorization (EUA). The EUA for this test is supported by the [place] of Health and Human Service's (HHS's) declaration [...] SARS-CoV-2. Performed By: #### C VDTB #### [facility] [address] [place] [address] Dr. Shayne CORNELIUSA AXIAL 03-01-2022 DEXA AXIAL [facility] Department of Radiology [address] [place] [phone] Patient Name: DIANA CHAMPION : 1955 [...] characteristics. Electronically signed: Luzma Fernandez. Transcribed by: [email or web address], User Resident: Electronically Signed by: LUZMA FERNANDEZ @ 03/02/2022 01:07 PM Normal [facility] SCOLIOSIS 2 Son 02-24-2022 SCOLIOSIS 2 S [facility] Department of Radiology [address] [place] [phone] Patient Name: DIANA CHAMPION : 1955 [...] spine. Electronically signed: Hugo Lynn. Transcribed by: [email or web address], User Resident: Electronically Signed by: HUGO LYNN @ 02/26/2022 11:07 AM Normal [facility] Comment on above: Order Comment: Views (X-RAY, SCOLIOSIS): PA, Lateral evaluate CT LUMBAR SPINE W CONTRASTon 01-24-2022 CT LUMBAR SPINE W CONTRAST [facility] Department of Radiology [address] [place] [phone] Patient Name: DIANA CHAMPION : 1955 [...] L1-2. Electronically signed: Gaurang Lawrence. Transcribed by: [email or web address], User Resident: Electronically Signed by: GAURANG LAWRENCE @ 01/26/2022 08:58 AM Normal [facility] Comment on above: Order Comment: , CT MYELOGRAM>PAPER WORK IN CHART LUMBAR MYELOGRAMon 2 LUMBAR MYELOGRAM [facility] Department of Radiology [address] [place] [phone] Patient Name: DIAAN CHAMPION : 1955 Sex: F Age: Race: White Pt. Location: Patient Status: O Ordered Date: 01/09/2022 9:00:00 AM Completed Date: 01/24/2022 02:37 PM Requesting Provider: JOO LINN Attending Provider: JOO LINN Report Copy To: UNKNOWN, PHYSICIAN Signs & Symptoms: M54.16 Radiculopathy, lumbar region I10 History: Jessica Is patient on thinners? 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 Consent was obtained. Timeout: [place] protocol timeout verification performed. PROCEDURE: Estimated blood [...] report. Electronically signed: Greg Marlow. Transcribed by: [email or web address], User Resident: DEBBEI JI Electronically Signed by: GREG MARLOW @ 01/24/2022 04:07 PM I personally read this/these film(s) with this resident Normal [facility] Comment on above: Order Comment: , CT MYELOGRAM> PAPER WORK SCANNED IN CHART , CT MYELOGRAM> PAPER WORK SCANNED IN CHART , , , Ordering Provider - JOO LINN MD , HIP LEFT 1 OR 2 VWS WITH PEL VISon 01-06-2022 HIP LEFT 1 OR 2 VWS WITH PELVIS [facility] Department of Radiology [address] [place] [phone] Patient Name: DIANA CHAMPION : 1955 [...] hardware. Electronically signed: Joe Matthew. Transcribed by: [email or web address], User Resident: Electronically Signed by: JOE MATHTEW @ 01/09/2022 04:45 PM Normal [facility] Comment on above: Order Comment: Evalu ate Vital Signs Date Time Vital Sign Value Performing Clinician Facility 03-14-2024 10:30-0400 Body height 165.1 cm Steph Collier Work Phone: [facility] 03-14-2024 10:30-0400 Body mass index (BMI) [Ratio] 39 kg/m2 Steph Collier Work Phone: [facility] 03-14-2024 10:30-040 Body temperature 97.4 [degF] Steph Collier Work Phone: [facility] 03-14-2024 10:30-0400 Body weight 106.36 kg Steph Collier Work Phone: [facility] 03-14-2024 10:30-0400 Diastolic blood pressure 80 mm[Hg] Steph Collier Work Phone: [facility] 03-14-2024 10:30-0400 Heart rate 77 /min Steph Collier Work Phone: [facility] 03-14-2024 10:30-0400 Inhaled oxygen flow rate 3 L/min Steph Collier Work Phone: [facility] 03-14-2024 10:30-0400 Respiratory rate 20 /min Steph Collier Work Phone: [facility] 03-14-2024 10:30-0400 SaO2% (BldA) [Mass fraction] 92 % Steph Collier Work Phone: [facility] 03-14-2024 10:30-0400 Systolic blood pressure 120 mm[Hg] Steph Collier Work Phone: [facility] 08-17-2023 09:20-0400 Body height 165.1 cm Herberth Joana Other [facility] 08-17-2023 09:20-0400 Body mass index (BMI) [Ratio] 38.1 kg/m2 Herberth Joana Other [facility] 08-17-2023 09:20-0400 Body temperature 98.8 [degF] Herberth Joana Other [facility] 08-17-2023 09:20-0400 Body weight 103.87 kg Herberth Joana Other [facility] Other 08-17-2023 09:20-0400 Diastolic blood pressure 85 mm[Hg] Herberth Joana Other [facility] 08-17-2023 09:20-0400 Respiratory rate 18 /min Herberth Joana Other [facility] 08-17-2023 09:20-0400 SaO2% (BldA) [Mass fraction] 94 % Herberth Joana Other [facility] 08-17-2023 09:20-0400 Systolic blood pressure 151 mm[Hg] Herberth Joana Other [facility] 03-02-2023 10:00-0400 Body height 165.1 cm Herberth Joana Other [facility] 03-02-2023 10:00-0400 Body mass index (BMI) [Ratio] 37.29 kg/m2 Herberth Joana Other [facility] 03-02-2023 10:00-0400 Body temperature 98.9 [degF] Herberth Joana Other [facility] Other 03-02-2023 10:00-0400 Body weight 101.65 kg Herberth Joana Other [facility] Other 03-02-2023 10:00-0400 Diastolic blood pressure 76 mm[Hg] Herberth Joana Other [facility] 03-02-2023 10:00-0400 Respiratory rate 20 /min Herberth Joana Other [facility] 03-02-2023 10:00-0400 SaO2% (BldA) [Mass fraction] 96 % Herberth Joana Other [facility] 03-02-2023 10:00-0400 Systolic blood pressure 136 mm[Hg] Herberth Joana Other [facility] Other 12-08-2022 09:30-0500 Diastolic blood pressure 59 mm[Hg] MD Shaikh Ohara Work Phone: [facility] 12-08-2022 09:30-0500 Heart rate 55 /min MD Shaikh Ohara Work Phone: [facility] 12-08-2022 09:30-0500 Respiratory rate 16 /min MD Shaikh Ohara Work Phone: [facility] 12-08-2022 09:30-0500 SaO2% (BldA) [Mass fraction] 96 % MD Shaikh Ohara Work Phone: [facility] 12-08-2022 09:30-0500 Systolic blood pressure 112 mm[Hg] MD Shaikh Ohara Work Phone: [facility] 12-08-2022 06:54-0500 Body height 162.56 cm MD Shaikh Ohara Work Phone: [facility] 12-08-2022 06:54-0500 Body temperature 98.2 [degF] MD Shaikh Ohara Work Phone: [facility] 12-08-2022 06:54-0500 Body weight 104.32 kg MD Shaikh Ohara Work Phone: [facility] 08-09-2022 11:00-0400 Body height 165.1 cm Herberth Joana Other [facility] Other 08-09-2022 11:00-0400 Body mass index (BMI) [Ratio] 37.87 kg/m2 Herberth Joana Other [facility] Other 08-09-2022 11:00-0400 Body temperature 97.2 [degF] Herberth Joana Other [facility] 08-09-2022 11:00-0400 Body weight 103.24 kg Herberth Joana Other [facility] Other 08-09-2022 11:00-0400 Diastolic blood pressure 88 mm[Hg] Herberth Joana Other [facility] 08-09-2022 11:00-0400 Respiratory rate 20 /min Herberth Joana Other [facility] Other 08-09-2022 11:00-0400 SaO2% (BldA) [Mass fraction] 95 % Herberth Joana Other [facility] 08-09-2022 11:00-0400 Systolic blood pressure 133 mm[Hg] Herberth Joana Other [facility] 11-17-2021 10:40-0500 Body height 165.1 cm Herberth Joana Other [facility] Other 11-17-2021 10:40-0500 Body mass index (BMI) [Ratio] 37.97 kg/m2 Herberth Joana Other [facility] Other 11-17-2021 10:40-0500 Body temperature 97.8 [degF] Herberth Joana Other [facility] Other 11-17-2021 10:40-0500 Body weight 103.51 kg Herberth Joana Other [facility] Other 11-17-2021 10:40-0500 Diastolic blood pressure 70 mm[Hg] Herberth Joana Other [facility] Other 11-17-2021 10:40-0500 Respiratory rate 18 /min Herberth Joana Other [facility] Other 11-17-2021 10:40-0500 SaO2% (BldA) [Mass fraction] 94 % Herberth Joana Other [facility] Other 11-17-2021 10:40-0500 Systolic blood pressure 130 mm[Hg] Herberth Joana Other [facility] 08-30-2021 13:15-0400 Body height 165.1 cm Rena Ginty Other [facility] Other 08-30-2021 13:15-0400 Body mass index (BMI) [Ratio] 36.61 kg/m2 Rena Ginty Other [facility] Other 08-30-2021 13:15-0400 Body temperature 98.7 [degF] Rena Ginty Other [facility] Other 08-30-2021 13:15-0400 Body weight 99.79 kg Rena Ginty Other [facility] Other 08-30-2021 13:15-0400 SaO2% (BldA) [Mass fraction] 90 % Rena Hurd Other [facility] [employer] Other Encounters Encounter Date Encounter Type Care Provider Facility Start: 04-17-2024 End: 04-17-2024 ambulatory SAUNDERS FAWWAD Not Available Start: 04-15-2024 End: 04-15-2024 ambulatory Jayshree Vargas MD Facility:[facility] Start: 04-11-2024 End: 04-11-2024 ambulatory SAUNDERS FAWWAD Not Available Start: 04-03-2024 End: 04-03-2024 ambulatory SAUNDERS FAWWAD Not Available Start: 03-27-2024 End: 03-27-2024 ambulatory SAUNDERS FAWWAD Not Available Start: 03-14-2024 End: 03-14-2024 ambulatory Steph Collier Work Phone: [facility] Work Phone: Start: 03-14-2024 End: 03-14-2024 Patient encounter procedure Steph Collier Work Phone: [facility] Work Phone: Start: 03-06-2024 Non-patient / Non-visit [facility] Collier [facility] Work Phone: Start: 02-26-2024 End: 02-26-2024 ambulatory SAUNDERS FAWWAD Not Available Start: 02-19-2024 End: 02-19-2024 ambulatory Jayshree Vargas MD Facility:[facility] Start: 02-15-2024 End: 02-15-2024 ambulatory ROSHNI AICHHOLZ Not Available Start: 01-25-2024 End: 01-25-2024 ambulatory SAUNDERS FAWWAD Not Available Start: 12-28-2023 End: 12-28-2023 ambulatory SAUNDERS FAWWAD Not Available Start: 12-18-2023 End: 12-18-2023 ambulatory Jayshree Vargas MD Facility:[facility] Start: 12-05-2023 End: 12-05-2023 ambulatory SHAIKH LEV Not Available Start: 11-13-2023 End: 11-13-2023 ambulatory Jayshree Vargas MD Facility: [facility] Start: 11-02-2023 End: 11-02-2023 ambulatory SHAIKH LEV Not Available Start: 10-09-2023 End: 10-09-2023 ambulatory Jayshree Vargas MD Facility: [facility] Start: 10-04-2023 End: 10-04-2023 ambulatory SHAIKH LEV Not Available Start: 09-07-2023 End: 09-07-2023 ambulatory Herberth Joana Other [facility] Other Start: 09-07-2023 Telephone encounter Herberth Joana [facility] Start: 08-28-2023 End: 08-28-2023 ambulatory Herberth Joana Other [facility] Other Start: 08-28-2023 Telephone encounter Herberth Joana [facility] Start: 08-21-2023 End: 08-21-2023 ambulatory Jayshree Vargas MD Facility: [facility] Start: 08-17-2023 End: 08-17-2023 ambulatory Herberth Joana Other [facility] Other Start: 08-17-2023 Office outpatient visit 25 minutes Herberth Joana [facility] Start: 05-08-2023 End: 05-08-2023 ambulatory EHAB [facility] Start: 04-04-2023 End: 04-04-2023 ambulatory SHAIKH Dimitry OHARA Facility:[facility] Start: 03-24-2023 End: 03-25-[address] STEPH GRANADOS Facility:[facility] Start: 03-23-2023 ambulatory JOO LINN [facility] Start: 03-02-2023 End: 03-02-2023 ambulatory Herberth Joana Other [facility] Other Start: 03-02-2023 Office outpatient visit 25 minutes Herberth Joana [facility] Start: 02-25-2023 End: 02-26-2023 ambulatory HERBERTH JOANA Facility:[facility] Start: 02-22-2023 End: 02-23-2023 ambulatory BO MCCLAIN . Facility:[facility] Start: 12-15-2022 End: 12-16-[address] JACK HALL . Facility:[facility] Start: 12-08-2022 End: 12-08-2022 ambulatory Shaikh Lev Facility:[facility] Start: 12-08-2022 End: 12-08-2022 Admission to same day surgery center MD Shaikh Ohara Work Phone: [facility] Work Phone: Start: 12-08-2022 End: 12-08-2022 ambulatory MD Shaikh Ohara Work Phone: [facility] Work Phone: Start: 11-11-2022 End: 11-11-[address] JACK HALL . Facility:[facility] Start: 11-09-2022 End: 11-09-2022 ambulatory Aziz Bakhous Other [facility] Other Start: 11-09-2022 Telephone encounter Aziz Bakhous [facility] Start: 08-19-2022 End: 08-20-2022 ambulatory HERBERTH JOANA Facility:[facility] Start: 08-09-2022 End: 08-09-2022 ambulatory Herberth Joana Other [facility] Other Start: 08-09-2022 Office outpatient visit 10 minutes Herberth Joana [facility] Start: 08-09-2022 Telephone encounter Herberth Joana [facility] Start: 08-05-2022 Telephone encounter Herberth Joana [facility] Start: 08-05-2022 End: 08-06-2022 ambulatory HERBERTH JOANA [employer] Other Start: 07-08-2022 End: 07-08-2022 ambulatory Gato Domingo Other [facility] Other Start: 07-08-2022 Telephone encounter Gato Arsenio ck [facility] Start: 07-05-2022 End: 07-06-2022 ambulatory SAUNDERS H FAWWAD Facility:[facility] Start: 06-08-2022 End: 06-09-2022 ambulatory SAUNDERS H FAWWAD Facility:[facility] Start: 06-07-2022 End: 06-07-2022 ambulatory SAUNDERS H FAWWAD Facility:[facility] Start: 01-24-2022 End: 01-25-2022 ambulatory PHYSICIAN UNKNOWN Facility:[facility] Start: 11-17-2021 End: 11-17-2021 ambulatory Herberth Joana Other [facility] Other Start: 11-17-2021 Office outpatient visit 15 minutes Herberth Joana [facility] Start: 08-30-2021 Office outpatient visit 15 minutes Rena Vannessa [facility] Start: 09-11-2020 End: 09-11-2020 Chart abstracting Miguelito Buck Work Phone: Hematology/Oncology Start: 09-11-2020 End: 09-11-2020 Patient encounter procedure External Provider [facility] Start: 09-11-2020 Results Only External Provider Exter nal-NonC Start: 09-30-2019 End: 09-30-2019 Patient encounter procedure [facility] [place] Start: 07-07-2017 End: 07-07-2017 Admission to day surgery [facility] Start: 05-24-2004 Evaluation and management of inpatient [facility] Start: 04-26-2004 Evaluation and management of inpatient Steph Galindojohn [facility] [place] Procedures Date Procedure Procedure Detail Performing Clinician Start: 12-08-2022 Colonoscopy MD Shaikh Ohara Work Phone: Start: 09-11-2020 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 Button Cutter al Provider Start: 09-11-2020 EXTERNAL LAB External P rovider Start: 09-11-2020 EXTERNAL PROCEDURE Exte rnal Provider Start: 09-30-2019 Ultrasonography of b ilateral kidneys Steph Collier Plan of Treatment Date Care Activity Detail Author Start: 12-08-2022 [facility] Start: 07-07-2020 Influenza vaccination INFLUENZA (#1) [...] Colon Polypect shahram Hemorrhoids (DC) Diverticulosis (DC) [facility] Work Phone: [facility] Immunizations Immunization Date Immunization Notes Care Provider Henrietta charles 07-18-2018 Depo-Medrol 40 mg Rena Gint y Other [facility] Other 01-31-2018 Depo-Medrol 40 mg Rena Gint y Other [facility] Other 08-09-2017 influenza virus vaccine, unspecified formulation Steph Marinellijohn Work Phone: [facility] 08-09-2017 influenza, seasonal, injectable, preservative free Rena Hurd Other [facility] Other Payers Date Payer Category Payer Unknown 2022 Self-pay [id number] 2021 Medicare [id number] 2020 Medicaid [id number] 2019 Medicaid MEDICAID [facility] MEDICAID [id number] 2019-Present Medicaid [id number] 2016 Medicare MEDICARE MEDICAR E A AND B [id number] 2016-Present [place] [id number] 1959 Unknown [id number] 1955 Unknown [id number] 2.16.840.1.762332.3.579.2.647 1955 Unknown [id number] 2.16.840.1.083252.3.579.2.593 1955 Unknown [id number] 2.16.840.1.333785.3.579.2.593 1955 Unknown [id number] 2.16.840.1.111070.3.579.2.593 1956 Unknown [id number] 2.16.840.1.000726.3.579.2.593 1956 Unknown [id number] 2.16.840.1.016181.3.579.2.593 1956 Unknown [id number] 2.16.840.1.009907.3.579.2.593 1955 Unknown [id number] 2.16.840.1.475593.3.579.2.593 1955 Unknown [id number] 2.16.840.1.481511.3.579.2.593 1955 Unknown [id number] 2.16.840.1.050981.3.579.2.593 1955 Unknown [id number] 2.16.840.1.590524.3.579.2.593 1956 Unknown [id number] 2.16.840.1.082698.3.579.2.593 1955 Unknown [id number] 2.16.840.1.014500.3.579.2.1259 1956 Unknown [id number] 2.16.840.1.156602.3.579.2.125 1956 Unknown [id number] 2.16.840.1.645311.3.579.2.125 1956 Unknown [id number] 2.16.840.1.040393.3.579.2.125 1956 Unknown [id number] 2.16.840.1.661342.3.579.2.125 1956 Unknown [id number] 2.16.840.1.809584.3.579.2.125 1956 Unknown [id number] 2.16.840.1.681478.3.579.2.125 1956 Unknown [id number] 2.16.840.1.425216.3.579.2.125 1956 Unknown [id number] 2.16.840.1.982166.3.579.2.125 1956 Unknown [id number] 2.16.840.1.177430.3.579.2.1259 1956 Unknown [id number] 2.16.840.1.497085.3.579.2.1259 1956 Unknown [id number] 2.16.840.1.676446.3.579.2.196 1955 Unknown [id number] 2.16.840.1.592843.3.579.2.196 1956 Unknown [id number] 2.16.840.1.862333.3.579.2.196 1955 Unknown [id number] 2.16.840.1.832045.3.579.2.196 1955 Unknown [id number] 2.16.840.1.799483.3.579.2.196 1955 Unknown [id number] 2.16.840.1.400363.3.579.2.196 Medicare [id number] Unknown HCAP/HFA/FAP Active [id number] Unknown [id number] 2.16.840.1.336333.3.579.2.531 Social History Date Type Detail Facility Tobacco smoking stat us [facility] Unknown if ever smoked [facility] Start: 1955 Sex Assigned At Female F [facility] Start: 09-11-2020 End: 03-14-2024 Tobacco smoking status NHIS Never smoker [facility] Start: 09-11-2020 Tobacco use and exposure Never used [facility] Start: 09-11-2020 Alcohol intake Lifetime non-d my (finding) [facility] Start: 09-11-2020 History SDOH Alcohol Frequency 1 [facility] Sex Assigned At Not on file [facility] Sex Assigned At Sex Assigned At Bir th [facility] Other Goals Date Patient Goal Desired Activity /State Clinical Notes 08-30-2021 to 11-02-2023 Note Date & Type Note Facility 09-07-2023 Evaluation note Encounter Date Diagnosis Assessment Notes Sep, Hypomagnesemia (ICD-10 - E83.42) [facility] Other 10-23-2023 Evaluation note* Encounter Date Diagnosis Assessment Notes Treatment Notes Treatment Clinical Notes Aug, Nico garsia kid I-IV (ICD-10 - I12.9) [facility] 10-12-2023 Evaluation note* Encounter Date Diagnosis [...] PPI induced GI losses. Continue oral Magnesium [facility] Chief Complaint: Patient here for 1 year follow up CAD and hypertension. She was recently discharged from [facility] for Covid-19. She says hydrochlorothiazide was [...] breath since then. She has seen her counter server. Her chest pain is noncardiac. She has no other cardiac complaints. Cardiology ROS: Review of Systems Cardiovascular: Positive for chest pain and dyspnea on exertion. Respiratory: Positive for wheezing. Musculoskeletal: Positive for arthritis, back pain, joint pain and myalgias. Neurological: Positive for light-headedness. All other systems reviewed and are negative. Past Medical History She has a past medical history of Cancer ([facility]) and Hypertension. Surgical History She [...] 325 mg by mouth., Disp: , Rfl: exagabduaga-vswsnspke-zbkqbahz 100-62.5-25 mcg blister with device, , Disp: [...] CTAB, no increased eff (more content not included)...[facility]05-19-2023 NotePROCEDURE: XR HIP RT 2 3V W PELVIS HISTORY: Pain in right hip joint , chronic COMPARISON: XR L-spine 02/26/2019, XR left hip with pelvis 03/11/2017 FINDINGS: BONES:Complete loss of the right hip joint space with cfqz-zq-mwjz articulation, subchondral sclerosis and cysts, and large periarticular degenerative osteophytes. No fracture or dislocation. Left hip replacement. Mechanical fusion of L5-S1 and moderate dextroscoliosis of lumbar spine. SOFT TISSUES:No visible soft tissue swelling. EFFUSION:None visible. OTHER: Negative. IMPRESSION: 1. Marked degenerative joint disease of the right hip; progressed since prior study. 2. Stable surgical changes. Electronically authenticated by: STEPH GRANADOS Date: 2023-03-24 12:55[facility]05-18-2023 NoteSubjective 03/23/23 Diana Champion is [...] LIGATION Past Medical History: Diagnosis Date Cancer ([facility]) Hypertension Objective General: Body mass [...] from the patient's PCP as well as counter server for a right anterior total hip arthroplasty. [...] may be an additional personal documentation from me.[facility]04[facility] Evaluation note* Encounter Date Diagnosis Assessment [...] PPI induced GI losses. Continue oral Magnesium [facility] [id number] [facility]* Encounter Date Diagnosis Assessment Notes Treatment Notes Treatment Clinical Notes Nov, Hypokalemia (ICD-10 - E87.6) Nov, Hypomagnesemia (ICD-10 - E83.42) [facility] 10-04-2022 Evaluation note* Encounter Date Diagnosis [...] office does not accept her new insurance. [facility] Other 09-02-2022 Evaluation note* Encounter Date Diagnosis Assessment Notes Treatment Notes Treatment Clinical Notes Jul, History of colon cancer (ICD-10 - Z85.038) [facility] 01-12-2022 Evaluation note* Encounter Date Diagnosis [...] potassium wasting. I have prescribed oral potassium. [facility] Other 10-25-2021 Evaluation note* Encounter Date Diagnosis [...] care instructions given in writting by [facility] Care At Home document [facility] Other Evaluation noteNo [employer]Nort [employer] Other Evaluation note* Diagnosis Onset Date Resolution Status History of colon cancer acut e [facility] Work Phone: Evaluation note* Diagnosis Onset Date Resolution Status Hypokalemia acute Hypomagnesemia acute Stage 3 chronic kidney disease acute COVID noneactive Pneumonia noneactive [facility] Work Phone: Hisylrr general Narrative - Reported* Type Description Date [...] IN 08/2019 Hospitalization History HIP REVISION 03/2020 [facility] Other Hisprnd general Narrative - Reported* Type Description Date [...] Hospitalization History COVID X 2 WEEKS 04/2023 [facility] Other Hospital Discharge instructions Additional Instructions DISCHARGE [...] if you have any problems. -Office number [phone] Work Phone: Advance Directives No [...] 03/03/2022 [facility] DATE CREATED AUTHOR AUTHOR'S ORGANIZ ATION 04/17/2023 [facility] DATE CREATED AUTHOR AUTHOR'S ORGANIZ ATION 05/08/2023 [facility] DATE CREATED AUTHOR AUTHOR'S ORGANIZ ATION 06/07/2023 [facility] DATE CREATED AUTHOR AUTHOR'S ORGANIZ ATION 04/18/2024 [facility] DATE CREATED AUTHOR AUTHOR'S ORGANIZ ATION 04/28/2024 [facility] REASON FOR VISIT (unrecogniz ed section [...] Dates Steph Collier Attending Provider Active Start: J 2003 Team Status: Active Member Role Status [...] BE BASED ON THE PRIMARY CLINICAL RECORDS. [facility]. provides no warranty or guarantee of the accuracy or completeness of information in this document.
[2024-05-06 09:34] VITALS: BP 130/74; PULSE 68; TEMP 36.9; O2SAT 92
[2024-05-06] MEDS: LIDOCAINE HCL 2% 400 MG/20 ML MDV 4 ML INJ (10:16)
[2024-05-06] MEDS: BUPIVACAINE HCL 0.25% PF 25 MG/10 ML VIAL 8 ML INJ (10:16)
[2024-05-06 10:18] VITALS: BP 126/73; BP 137/65; PULSE 68; PULSE 69; O2SAT 96; O2SAT 97
--- NOTE | 2024-05-06 10:18 | W.PM.PROCNOT ---
Date of procedure: 05/06/24 Pre-op diagnosis: Pain due to thoracic spondylosis Post-op diagnosis: same as pre-op Procedure: Procedure: Bilateral T7-8, 8-9 medial branch block Medications: Bupivacaine 0.25% 6cc The patient was seen and examined in the preoperative holding area.? An informed consent was obtained and placed on the chart.? The patient was brought to the medical procedure unit and placed in the prone position.? A timeout was completed verifying correct patient, procedure site, positioning, plan, and special equipment.? Using aseptic technique, the needle was placed at left T7. Under direct fluoroscopic visualization a Quincke-tipped spinal needle was advanced to the junction of the superior articulating process with the transverse process at the designated medial branch segment.? Preceded by negative aspiration, the above-mentioned injectate was placed in 1 mL aliquots.? The procedure was repeated at left T8, 9.? The needle was removed and insertion site was covered. The same procedure, at the same levels, was completed on the right side. The patient was taken to the postprocedural recovery area and monitored for an appropriate length of time before found suitable for discharge in the company of a responsible adult. Anesthesia: Local Surgeon: Jayshree Vargas Pathology: none sent Condition: stable Disposition: no change
== END 2024-05-06 10:25 | disposition home or self-care (01) ==
LOC: SURGOUT 08:54
PROVIDERS: PCP Internal Medicine; Visit Provider Anesthesiology
DX: M47.814 Spondylosis without myelopathy or radiculopathy, thoracic region (principal)
CPT/HCPCS: 64490; 64491; J0665

== ENCOUNTER 2024-05-08 08:26 | Outpatient (OUT) | payer OTHER, SELFPAY ==
--- NOTE | 2024-05-08 08:57 | P.CN_ITS ---
Consult Note: HPI Data of Consult Patient: known to practice within the last 3 years Requesting Physician: Violet Saucedo NP Primary Care Provider: Shaikh Lev MD Consult Narrative Reason for consult: f/u Narrative: Diana Champion a pleasant 68 year old female presents for evaluation and management of middle and low back pain. Today rating pain 4/10 in low back, pain in upper back 5/10 sharp pressure increasing with standing walking activity and cold weather, increased to moderate to severe. PT has failed to benefit from PT and conservative measures in the past, hx of L5-S1 fusion. Patient needs a right ELZA but is unable to do that at this time. Patient is following with pulmonology and PCP for pneumonia and chronic lung disease, on continuous o2. Patient recently underwent thoracic xray which is consistent with moderate degenerative changes and multilevel facet arthropathy. Recently underwent bilateral T7-8 T8-9 MBB #1 and #2 with >80% improvement in pain and functional ability, noticed improvement in ability to stand and tolerate activity immediately following and 3 days after the injection. cc:: CC: Violet Saucedo NP Review of Systems ROS Status of ROS 10 or more systems reviewed and unremark able except as noted in history and below Musculoskeletal Reports: back pain PFSH PFSH Medical History Hypomagnesemia ?E83.42 - Hypomagnesemia (ICD-10) Acute hypokalemia ?E87.6 - Hypokalemia (ICD-10) Pneumonia ?J18.9 - Pneumonia, unspecified organism (ICD-10) Acute exacerbation of chronic obstructive pulmonary disease ?J44.1 - Chronic obstructive pulmonary disease with (acute) exacerbation (IC D-10) CAD (coronary artery disease) ?I25.10 - Atherosclerotic heart disease of [place] coronary artery without angina pectoris (ICD-10) Chronic heart failure with preserved ejection fraction (HFpEF) ?I50.32 - Chronic diastolic (congestive) heart failure (ICD-10) Hypertension ?I10 - Essential (primary) hypertension (ICD-10) Myofascial pain ?M79.18 - Myalgia, other site (ICD-10) Greater trochanteric bursitis ?M70.60 - Trochanteric bursitis, unspecified hip (ICD-10) Osteoarthritis of right hip ?M16.11 - Unilateral primary osteoarthritis, right hip (ICD-10) Lumbar spondylosis ?M47.816 - Spondylosis without myelopathy or radiculopathy, lumbar region (ICD-10) Lumbar postlaminectomy syndrome ?M96.1 - Postlaminectomy syndrome, not elsewhere classified (ICD-10) Lumbar stenosis with neurogenic claudication ?M48.062 - Spinal stenosis, lumbar region with neurogenic claudication (ICD- 10) Depression ?F32.A - Depression, unspecified (ICD-10) Chronic low back pain ?M54.50 - Low back pain, unspecified (ICD-10) ?G89.29 - Other chronic pain (ICD-10) Hypoxia ?R09.02 - Hypoxemia (ICD-10) Heart murmur ?R01.1 - Cardiac murmur, unspecified (ICD-10) Chronic obstructive pulmonary disease ?J44.9 - Chronic obstructive pulmonary disease, unspecified (ICD-10) Asthma ?J45.909 - Unspecified asthma, uncomplicated (ICD-10) Surgical History Status post hip surgery ?Z98.890 - Other specified postprocedural states (ICD-10) H/O foot surgery ?Z98.890 - Other specified postprocedural states (ICD-10) H/O tubal ligation ?Z98.51 - Tubal ligation status (ICD-10) History of lumbar fusion ?Z98.1 - Arthrodesis status (ICD-10) Family History Mother Family history of CHF (congestive heart failure) Family history of hypertension Father Family history of hypertension Family history of myocardial infarction Social History Within the past year, how often did you have a drink containing alcohol: never Score interpretation: A score less than 3 is consistent with normal alcohol consumption. Smoking status: Never smoker Non-prescribed substance use: denies use Previous occupational history: retired Highest level of school completed/degree received: Associate degree: occupational, technical, vocational program Are you now , , , , never or living with a partner: In a typical week, how many times do you talk on the telephone with family, friends, or neighbors: 3 or more times per week How often do you get together with friends or relatives: 3 or more times per week How often do you attend samaritan or adventist services: 4 or more times per year Do you belong to any clubs or organizations such as samaritan groups unions, fraternal or athletic groups, or school groups: no Total score: 2 Score interpretation: A score of greater than or equal to 2 indicates the lowest level of social isolation. Little interest or pleasure in doing things: not at all Feeling down, depressed, or hopeless: not at all Feel stressed/tense/nervous/anxious/difficulty sleeping: not at all Do you think of yourself as: straight/heterosexual Gender Identity: female Meds Home Medications and Allergies Home Medications ?Medication ?Instructions ?Recorded ?Confirmed ?Type fluticasone fur. 200 mcg-umeclid 1 inh inhalation Q24H COPD 04/10/23 05/06/24 History 62.5 mcg-vilant 25 mcg inhalat.powder (Trelegy Ellipta) magnesium oxide 400 mg (241.3 mg 400 mg PO DAILY 04/10/23 05/06/24 History magnesium) tablet omeprazole 20 mg capsule,delayed 20 mg PO BID 04/10/23 05/06/24 History release montelukast 10 mg tablet 10 mg PO DAILY 09/14/23 05/06/24 History pramipexole 0.25 mg tablet 0.25 mg PO QPM 09/14/23 05/06/24 History (Mirapex) paroxetine HCl 30 mg tablet 30 mg PO QDAY 11/25/23 05/06/24 History pregabalin 75 mg capsule 75 mg PO BID 11/25/23 05/06/24 History solifenacin 10 mg tablet 10 mg PO QDAY 11/25/23 05/06/24 History trazodone 100 mg tablet 100 mg PO .qhs 11/25/23 05/06/24 History baclofen 10 mg tablet 10 mg PO Q8H 02/03/24 05/06/24 History Allergies Allergy/AdvReac Type Severity Reaction Status Date / Time No Known Drug Allergies Allergy Verified 05/06/24 09:43 Exam Constitutional Documenting provider has reviewed patient's vital signs: yes Common normals: no apparent distress, oriented x3, healthy appearing, alert and well nourished General appearance: cooperative HENNV Common normals: normocephalic, hearing grossly normal bilaterally and moist oral mucous membranes Head and scalp: normocephalic Eye Common normals: PERRL Pupil: PERRL Neck & C-Spine Common normals: full ROM General: normal visual inspection Chest Common normals: inspection of chest normal Respiratory Common normals: normal respiratory effort, no retractions and no use of accessory muscles Effort & inspection: actively coughing Other: productive cough without SOB Back & Pelvis Thoracic spine/upper back: ROM limited, pain with ROM and thoracic spinal tenderness Lumbar spine/lower back: ROM limited, pain with ROM and straight leg raise negative bilaterally Other: sensation intact BLE weakness in BLE 4/5 multilevel thoracic facet tenderness, no trigger points noted positive facet loading, most significant over bilateral T7,8 T8,9 Extremity Common normals: normal to inspection and full ROM Right lower extremity: hip joint Other: pain with internal and external rotation. Weakness to BLE 4/5 strength Neuro Common normals: oriented x3, CN's II-XII intact bilaterally, moves all extremities, no focal motor deficits, no sensory deficits noted and deep tendon reflexes 2+ bilaterally Sensorium/orientation: alert Gait (neuro): assistive device used other (wheelchair) Motor exam: strength 5/5 throughout and no movement abnormalities noted Psych Common normals: mental status grossly normal, thought process normal, cooperative, affect normal, speech normal and activity/motor behavior normal Speech: normal speech Thought process: normal thought process Results Additional Findings Additional findings: If on a controlled substance or opioids, I have checked an [place] report on this patient and there are no aberrancies noted in the prescribing history.??If on a controlled substance or opioid a drug screen was completed and reviewed within the last year, and if there has not been a drug screen completed we ordered one today to monitor higher risk, state monitored pain medication use. As part of providing excellent, safe, comprehensive care, the following was completed at our patient's visit: 1. A medication reconciliation and review to ensure accurate knowledge of current/active medications, including asking our patients to inform us about any [id number] medications or herbal remedies/nutritional supplements/alternative remedies. 2. A review to specifically ensure our patients have had annual screening for screening for depression, screening for tobacco use, and screening for unhealthy alcohol use. For concerning screenings had a discussion with the patient, provided patient education, and recommended follow-up with primary care provider when appropriate. If patient noted with a risk of falling, they received education on strength, gait, and balance training to prevent future risk of falling. Assessment and Plan Assessment and Plan (1) Thoracic spondylosis: Assessment and Plan: The patient has had over 3 months of moderate to severe back pain with functional impairment and inadequate response to conservative care including NSAIDS (unless there are contraindication such as concurrent blood thinners), multiple oral or topical pain medications, and home exercise program/physical therapy.? Patient has completed >6 weeks of guided home exercise program and/or formal physical therapy program without relief of their symptoms.? I have reviewed the imaging of the thoracic spine and no red flags were identified.? We discussed the risks and benefits of the procedure with the patient, and we are NOT planning on using sedation as outlined in the guidelines from Medicare unless there is a documented reason that sedation would be strongly recommended.?? The procedure will be completed with fluoroscopic guidance.? (2) Lumbar stenosis with neurogenic claudication: Assessment and Plan: improved (3) Lumbar radiculopathy: Assessment and Plan: resolved (4) Lumbar spondylosis: Assessment and Plan: stable (5) Failed back syndrome: (6) History of lumbar fusion: (7) Myofascial pain: Assessment and Plan: improved with baclofen 10mg TID PRN (8) Osteoarthritis of right hip: Qualifiers: Osteoarthritis type: primary Qualified Code(s): M16.11 - Unilateral primary osteoarthritis, right hip (9) Encounter for long-term opiate analgesic use: (10) On home oxygen therapy: Plan left then right T7,8 T8,9 facet RFA under fluoroscopy, risks vs benefits reviewed continue f/u with PCP and pulmonology continue baclofen 10mg TID PRN for myofascial pain continue current medications, tolerating well without side effects. f/u 1 month after RFAs complete
== END 2024-05-08 08:27 | disposition home or self-care (01) ==
LOC: PM 08:27
PROVIDERS: PCP Internal Medicine; Visit Provider Nurse Practitioner
DX: M47.814 Spondylosis without myelopathy or radiculopathy, thoracic region (principal); M48.062 Spinal stenosis, lumbar region with neurogenic claudication; M54.16 Radiculopathy, lumbar region; M47.816 Spondylosis without myelopathy or radiculopathy, lumbar region; M96.1 Postlaminectomy syndrome, not elsewhere classified; M43.27 Fusion of spine, lumbosacral region; M79.18 Myalgia, other site; M16.11 Unilateral primary osteoarthritis, right hip; Z79.891 Long term (current) use of opiate analgesic; Z99.81 Dependence on supplemental oxygen
CPT/HCPCS: G0463

== ENCOUNTER 2024-05-28 06:45 | Outpatient (OUT) | payer OTHER, SELFPAY ==
--- OUTSIDE RECORDS SUMMARY | 2024-05-28 06:49 | XMS_ITS | CCD ---
Author Organization [facility] Care Team Providers Care District Superintendent Name Role Phone Steph Collier Attending Provider Unavailable Chantel Rainey Primary Care Provider Unavailabl e Joana, Herberth Attending Provider Unavailable Unavailable Primary Care Provider Unavailabl e UNKNOWN, PHYSICIAN Referring Unavailable JOO BRAVO Attending Unavailable JOO BRAVO Admitting Unavailable UNKNOWN, PHYSICIAN Primary Care Unavailable [...] MCKINNON Attending Unavailable BRITTANY GALDAMEZ Consulting Unavailable STEPHANIEK ., DR SANTIAGO Admitting Unavailabl e KARASIK ., DR SANTIAGO Attending Unavailabl e KARASIK ., DR SANTIAGO Consulting Unavailabl e FAWWAD, SAUNDERS H Primary Care Unavailable MALOTT, DR BRITTANY Elizondo Consulting Unavailable ZIEBBETH, DR [...] Attending Unavailable FAWWAD, SAUNDERS H Consulting Unavailable Fawwad, Saunders Primary Care Unavailable Gato Domingo Attending UnavailGato Chatterjee Admitting Unavailabl Steph Strange Attending Provider [phone] FAWWAD, SAUNDERS Attending Unavailable FAWWAD, SAUNDERS Attending Unavailable FAWWAD, SAUNDERS Attending Unavailable FAWWAD, SAUNDERS Attending Unavailable ROSHNI LEDESMA Attending Unavailable FAWWAD, SAUNDERS Attending Unavailable FAWWAD, SAUNDERS Attending Unavailable FAWWAD, SAUNDERS Attending Unavailable FAWWAD, SANUDERS Attending Unavailable FAWWAD, SAUNDERS Attending Unavailable FAWWAD, SAUNDERS Attending Unavailable Alicia DRAPER, Jayshree Johnson Attending Unavailable Alicia DRAPER, Jayshree Johnson Attending Unavailable Gieditis , Andlarisa Johnson Attending Unavailable Giedraitis , Andlarisa Johnson Attending Unavailable Gieditis , Andlarisa Johnson Attending Unavailable Gieditis , Andlarisa Johnson Attending Unavailable Giedkathy DRAPER, Jayshree Johnson Attending Unavailable ELTAHAWY, EHAB Attending Unavailable Unavailable Unavailable Unavailable Allergies Allergy Classification Reported Allergen(s) Allergy Type Date of Onset Reaction(s) Facility (5 sources) fentaNYL; Translations: [fentanyl] Drug Allergy 07-07-20 17 Hallucinating [facility] (1 source) linezolid; Translations: [LINEZOLID] Drug Allergy 03-17-20 20 [facility] (20 sources) Vancomycin; Translations: [VANCOMYCIN] Drug Allergy 03-17-20 20 Unknown, Unknown Reaction [facility] (12 sources) DENIES METAL SENSITITIVITY Propensity to adverse reactions 03-14-20 24 Unknown, Unknown Reaction [facility] Medications Current Medications Medication Drug Class(es) Dates Sig (Normalized) Sig (Original) 30 ACTUAT fluticasone furoate 0.2 MG/ACTUAT / umeclidinium 0.0625 MG/ACTUAT / vilanterol 0.025 MG/ACTUAT Dry Powder Inhaler [Trelegy] (2 sources) take 1 puff(s) by inhalation once daily Trelegy Ellipta 200-62.5-25 MCG/INH 1 puff Inhalation Once a day Active [id number] 200 actuat albuterol 0.09 mg/actuat metered dose [...] 14, 2024 12:00am Start: 12-08-2022 End: 03-14-2024 Ivkggghgekl-Ntkjdexzd-Hatkex er (Trelegy Ellipta) 200-62.5-25 mcg blister with [...] 1 tablet by bessie every twenty-four hours Singulair 10 MG 1 [...] 14, 2024 10:41am take 1 capsule by [facility] every twelve hours Omeprazole 20 MG 1 CAPSULE Orally TWICE A DAY Active take 1 capsule by [facility] once daily Omeprazole 20 MG 1 [...] Start: 08-05-2022 take 1 tablet by bessie every twelve hours Potassium Chloride ER 20 [...] 1 puff(s) by inhalation twice daily Ipratropium [place] (Atrovent Hfa) 17 mcg/actuation Hfa Aerosol Inhaler [...] ORIGN] Onset: 2 Resolved: 2 Chronic Other nervous system disorders (11 sources) Chronic [...] organism; Translations: [Pneumonia, organism unspecified] 03-14-2024 Episodic Pulmonary heart disease (2 sources) Pulmonary hypertension, unspecified; Translations: [Pulmonary hypertension, unspecified] Onset: 4 Chronic Spondylosis; intervertebral disc disorders; other back [...] Test Name Value Interpretation Reference Range Facility Office Visiton 05-13-2024 Follow-up visit [id number] Nell Champion 1955 F Date Provider Department Center 05/13/2024 Siddharth-HETAL SCALES Family History Problem Relation Age of Onset Heart failure Mother Heart disease Father Family Status - Relation Status Age at Mother Father Level of Service:19356 SD OFFICE/OUTPATIENT ESTABLISHED MOD MDM 30 MIN Normal [facility] Erythrocyte distribution wid th Auto (RBC) [Ratio]on 03-06-2024 Erythrocyte distribution width (RBC) [Ratio] 13.2 % 11.0-15.0 [facility] Estimated glomerular filtrat ion rate (GFR) non- Americanon 03-06-2024 GFR/1.73 sq M.predicted among non-blacks MDRD (S/P/Bld) [Vol rate/Area] 57 mL/min/{1.73_m2} >=60 [facility] Hematocrit Auto (Bld) [Volum e fraction]on 03-06-2024 Hematocrit (Bld) [Volume fraction] 38.7 % 36.0-48.0 [facility] Hemoglobin [Mass/volume] in Bloodon 03-06-2024 Hemoglobin (Bld) [Mass/Vol] 12.2 g/dL 12.0-16.0 [facility] Laboratory - Chemistry and C hemistry - challengeon 03-06-2024 Albumin [Mass/Vol] 3.0 g/dL 3.4-5.0 [facility] Calcium [Mass/Vol] 8.8 mg/dL 8.5-10.1 [facility] Chloride [Moles/Vol] 104 mmol/L 98-107 [facility] CO2 [Moles/Vol] 32.2 mmol/L 21.0-32.0 [facility] Creatinine [Mass/Vol] 0.97 mg/dL 0.55-1.02 [facility] GFR/1.73 sq M.predicted MDRD (S/P/Bld) [Vol rate/Area] mL/min/{1.73_m2} >=60 [facility] Glucose [Mass/Vol] 67 mg/dL 74-106 [facility] Magnesium [Mass/Vol] 1.9 mg/dL 1.8-2.4 [facility] Potassium [Moles/Vol] 3.4 mmol/L 3.5-5.1 [facility] Sodium [Moles/Vol] 143 mmol/L 136-145 [facility] Urate [Mass/Vol] 5.0 mg/dL 2.6-6.0 [facility] Urea nitrogen [Mass/Vol] 16.0 mg/dL 7.0-18.0 [facility] Urea nitrogen/Creatinine [Mass ratio] 16.5 mg/mg [facility] Leukocytes [#/volume] correc melanie for nucleated erythrocytes in Blood by Automated counon 03-06-2024 WBC corrected for nucl RBC Auto (Bld) [#/Vol] 8.1 10 3/uL 4.0-11.0 [facility] MCH Auto (RBC) [Entitic mass ]on 03-06-2024 MCH (RBC) [Entitic mass] 30.4 pg 26.7-34.0 [facility] MCHC Auto (RBC) [Mass/Vol]on 03-06-2024 MCHC (RBC) [Mass/Vol] 31.5 g/dL 29.9-35.2 [facility] MCV Auto (RBC) [Entitic vol] on 03-06-2024 MCV (RBC) [Entitic vol] 96.5 fL 81.0-99.0 [facility] No Panel Informationon 03-06 Urine Random Creatinine 63.27 mg/dL 20.00-300.00 [facility] Urine Random Total Protein <6.0 mg/dL <=11.9 [facility] 25-Hydroxy Vitamin D Total 37.1 ng/mL [facility] Comment on above: <20 ng/mL Vit D defi cient20-<30 ng/mL Vit D lltaxvemumwd31-068 ng/mL Vit D sufficient>100 ng/mL Potential Toxicity Parathyroid Hormone (Intact) 36 pg/mL 15-65 [facility] Comment on above: Performed at: [facility] [address] [id number] Director: Raphael Marrero PhD, Phone: [phone] Phosphorus Level 3.2 mg/dL 2.6-4.7 [facility] Platelet mean volume Auto (B ld) [Entitic vol]on 03-06-2024 Platelet mean volume (Bld) [Entitic vol] 9.1 fL 9.5-13.5 [facility] Platelets Auto (Bld) [#/Vol] on 03-06-2024 Platelets (Bld) [#/Vol] 247 10 3/uL 150-450 [facility] RBC Auto (Bld) [#/Vol]on RBC (Bld) [#/Vol] 4.01 10 6/uL 4.20-5.[address] [facility] Serum or plasma anion gap de terminationon 03-06-2024 Anion gap [Moles/Vol] 10.2 mmol/L [facility] SYMPTOMATIC COVID-19 ANTIGEN on 04-04-2023 EUA Statement SEE BELOW Normal [facility] Comment on above: Result Comment: [...] sooner. Performed By: #### C VDAGS #### [facility] [address] [place] [address] Dr. Shayne Roldan SARS-CoV-2 (COVID-19) RNA KAYLEE+probe Ql (Unsp spec) Positive Abnormal NEGATIVE [facility] Comment on above: Performed By: #### C VDAGS #### [facility] [address] [place] [address] Dr. Shayne Roldan XR LSPINE 2_3 VIEWSon [...] STEPH GRANADOS Date: 2023-03-24 12:52 Normal [facility] PTH INTACTon 02-27-2023 PTH, Intact 87 pg/mL Critically high 15-65 [facility] Comment on above: Performed By: #### P THINT #### [facility] [address] [place] [address] Dr. Shayne Roldan HEMOGRAM AND PLATELon 2022 Hematocrit (Bld) [Volume fraction] 44.4 % Normal 36.0-48.0 [facility] Comment on above: Performed By: #### H H #### [facility] [address] [place] [address] Dr. Shayne Roldan Hemoglobin (Bld) [Mass/Vol] 14.5 g/dL Normal 12.0-16.0 [facility] Comment on above: Performed By: #### H H #### [facility] [address] [place] [address] Dr. Shayne Roldan MCH (RBC) [Entitic mass] 30.3 pg Normal 26.7-34.0 [facility] Comment on above: Performed By: #### H H #### [facility] [address] [place] [address] Dr. Shayne Roldan MCHC (RBC) [Mass/Vol] 32.7 g/dL Normal 29.9-35.2 [facility] Comment on above: Performed By: #### H H #### [facility] [address] [place] [address] Dr. Shayne Roldan MCV (RBC) [Entitic vol] 92.9 fL Normal 81.0-99.0 [facility] Comment on above: Performed By: #### H H #### [facility] [address] [place] [address] Dr. Shayne Roldan PLT 367 103/ul Normal 150-450 [facility] Comment on above: Performed By: #### H H #### [facility] [address] [place] [address] Dr. Shayne Roldan RBC 4.78 106/ul Normal 4.20-5.40 [facility] Comment on above: Performed By: #### H H #### [facility] [address] [place] [address] Dr. Shayne Roldan WBC 9.9 103/ul Normal 4.0-11.0 [facility] Comment on above: Performed By: #### H H #### [facility] [address] [place] [address] Dr. Shayne Roldan MAGNESIUMon 02-25-2023 Magnesium [Mass/Vol] 1.6 mg/dL Critically low 1.8-2.4 [facility] Comment on above: Performed By: #### M G, RENAL, URIC #### [facility] [address] [address] [address] Shayne Roldan RENAL FUNCTION PANELon 02-25 Albumin [Mass/Vol] 3.4 g/dL Normal 3.4-5.0 [facility] Comment on above: Performed By: #### M G, RENAL, URIC #### [facility] [address] [place] [address] Dr. Shayne Roldan Calcium [Mass/Vol] 8.7 mg/dL Normal 8.5-10.1 [facility] Comment on above: Performed By: #### M G, RENAL, URIC #### [facility] [address] [place] [address] Dr. Shayne Roldan Chloride [Moles/Vol] 104 mmol/L Normal 98-107 [facility] Comment on above: Performed By: #### M G, RENAL, URIC #### [facility] [address] [place] [address] Dr. Shayne Roldan CO2 [Moles/Vol] 25.9 mmol/L Normal 21.0-32.0 [facility] Comment on above: Performed By: #### M G, RENAL, URIC #### [facility] [address] [place] [address] Dr. Shayne Roldan Creatinine [Mass/Vol] 1.19 mg/dL Critically high 0.55-1.02 [facility] Comment on above: Performed By: #### M G, RENAL, URIC #### [facility] [address] [place] [address] Dr. Shayne Roldan EGFR-AF BHUTANESE 55 mL/min/1.73m2 Critically low >=60 [facility] Comment on above: Performed By: #### M G, RENAL, URIC #### [facility] [address] [place] [address] Dr. Shayne Roldan EGFR-NON AF BHUTANESE 45 mL/min/1.73m2 Critically low >=60 [facility] Comment on above: Performed By: #### M G, RENAL, URIC #### [facility] [address] [address] [address] Shayne Roldan Glucose [Mass/Vol] 193 mg/dL Critically high 74-106 [facility] Comment on above: Performed By: #### M G, RENAL, URIC #### [facility] [address] [place] [address] Dr. Shayne Roldan Phosphate [Mass/Vol] 3.2 mg/dL Normal 2.6-4.7 [facility] Comment on above: Performed By: #### M G, RENAL, URIC #### [facility] [address] [place] [address] Dr. Shayne Roldan Potassium [Moles/Vol] 3.9 mmol/L Normal 3.5-5.1 [facility] Comment on above: Performed By: #### M G, RENAL, URIC #### [facility] [address] [place] [address] Dr. Shayne Roldan Sodium [Moles/Vol] 140 mmol/L Normal 136-145 [facility] Comment on above: Performed By: #### M G, RENAL, URIC #### [facility] [address] [place] [address] Dr. Shayne Roldan Urea nitrogen [Mass/Vol] 17.0 mg/dL Normal 7.0-18.0 [facility] Comment on above: Performed By: #### M G, RENAL, URIC #### [facility] [address] [place] [address] Dr. Shayne Roldan UA RANDOM W/MICROSCOPICon BACTERIA TRACE Abnormal NONE SEEN [facility] Comment on above: Performed By: #### M G, RENAL, URIC #### [facility] [address] [place] [address] Dr. Shayne Roldan Bilirubin Ql (U) Negative Normal NEGATIVE [facility] Comment on above: Performed By: #### M G, RENAL, URIC #### [facility] [address] [place] [address] Dr. Shayne Roldan CAST NONE SEEN Normal NONE SEEN [facility] Comment on above: Performed By: #### M G, RENAL, URIC #### [facility] [address] [address] [address] Shayne Roldan Clarity (U) CLEAR Normal CLEAR [facility] Comment on above: Performed By: #### M G, RENAL, URIC #### [facility] [address] [address] [address] Shayne Roldan Color (U) LT. YELLOW Normal YELLOW [facility] Comment on above: Performed By: #### M G, RENAL, URIC #### [facility] [address] [address] [address] Shayne Roldan Crystals LM Nom (Urine sed) NONE SEEN Normal NONE SEEN [facility] Comment on above: Performed By: #### M G, RENAL, URIC #### [facility] [address] [place] [address] Dr. Shayne Roldan Epithelial cells LM Ql (Urine sed) RARE Normal NONE SEEN /RARE [facility] Comment on above: Performed By: #### M G, RENAL, URIC #### [facility] [address] [address] [address] Shayne Roldan Glucose Ql (U) Negative Normal NEGATIVE [facility] Comment on above: Performed By: #### M G, RENAL, URIC #### [facility] [address] [place] [address] Dr. Shayne Roldan Hemoglobin Ql (U) Negative Normal NEGATIVE [facility] Comment on above: Performed By: #### M G, RENAL, URIC #### [facility] [address] [address] [address] Shayne Roldan Ketones Ql (U) Negative Normal NEGATIVE [facility] Comment on above: Performed By: #### M G, RENAL, URIC #### [facility] [address] [place] [address] Dr. Shayne Roldan LEUKOCYTES Negative Normal NEGATIVE [facility] Comment on above: Performed By: #### M G, RENAL, URIC #### [facility] [address] [address] [address] Shayne Roldan MUCOUS NONE SEEN Normal NONE SEEN [facility] Comment on above: Performed By: #### M G, RENAL, URIC #### [facility] [address] [address] [address] Shayne Roldan Nitrite Ql (U) Negative Normal NEGATIVE [facility] Comment on above: Performed By: #### M G, RENAL, URIC #### [facility] [address] [address] [address] Shayne Roldan pH (U) 5.0 [pH] Normal 5-9 [facility] Comment on above: Performed By: #### M G, RENAL, URIC #### [facility] [address] [address] [address] Shayne Roldan RBC 0-2 Normal 0-2 [facility] Comment on above: Performed By: #### M G, RENAL, URIC #### [facility] [address] [place] [address] Dr. Shayne Roldan SPEC GRAVITY 1.025 Normal 1.005-<=1.025 [facility] Comment on above: Performed By: #### M G, RENAL, URIC #### [facility] [address] [place] [address] Dr. Shayne Roldan UA PROTEIN Negative Normal NEGATIVE/ TRACE [facility] Comment on above: Performed By: #### M G, RENAL, URIC #### [facility] [address] [place] [address] Dr. Shayne Roldan Urobilinogen Qn (U) 0.2 {Rogelio'U}/dL Normal 0.2 - 1. 0 [facility] Comment on above: Performed By: #### M G, RENAL, URIC #### [facility] [address] [address] [address] Shayne Roldan WBC 0-2 Abnormal NONE SEEN [facility] Comment on above: Performed By: #### M G, RENAL, URIC #### [facility] [address] [place] [address] Dr. Shayne Roldan URIC ACID SERUMon 02-25-2023 Urate [Mass/Vol] 6.1 mg/dL Critically high 2.6-6.0 [facility] Comment on above: Performed By: #### M G, RENAL, URIC #### [facility] [address] [place] [address] Dr. Shayne Roldan URINE T PROTEIN CREAT RATIOo n 02-25-2023 Protein (U) [Mass/Vol] 13.0 mg/dL Critically high <=12.0 [facility] Comment on above: Performed By: #### M G, RENAL, URIC #### [facility] [address] [address] [address] Shayne Roldan UR PROT CREAT RAT 0.16 Normal [facility] Comment on above: Performed By: #### M G, RENAL, URIC #### [facility] [address] [place] [address] Dr. Shayne Roldan URINE CREAT 83.60 mg/dL Normal 20.00-300.00 [facility] Comment on above: Performed By: #### M G, RENAL, URIC #### [facility] [address] [place] [address] Dr. Shayne Roldan VITAMIN D 25 OHon 02-25-2023 VIT D 25-OH 41.6 ng/mL Normal [facility] Comment on above: Performed By: #### M G, RENAL, URIC #### [facility] [address] [place] [address] Dr. Shayne Roldan VIT D RANGES SEE BELOW Normal [facility] Comment on above: Result Comment: <20 ng/mL Vit D deficient 20 - <30 ng/mL Vit D insufficient 30 - 100 ng/mL Vit D sufficient >100 ng/mL Potential Toxicity Performed By: #### M G, RENAL, URIC #### [facility] [address] [place] [address] Dr. Shayne Roldan XR CHEST 2 Von [...] by: BRITTANY GALDAMEZ Date: 2023-02-22 16:15 Normal [facility] MAMM SCREEN 3D PRATEEK CADon 12-15-2022 MG MAMM SCREEN 3D PRATEEK CAD Patient: DIANA CHAMPION Exam Date: 12/15/2022 : 1955 Gender:F Ordering : DR JACK HALL . Admission #: [id number] Family : Order #: [id number] CLICK HERE TO VIEW EXAM RADIOLOGY REPORT PROCEDURE: MAMMOGRAM SCREENING 3D BILATERAL CAD COMPARISON: MG MAMM SCREEN 3D PRATEEK CAD, 11/26/2021. INDICATIONS: Calculator Name NCI Breast Cancer Risk Assessment Tool 5 Year Breast Cancer Risk 1.20% Lifetime Breast Cancer Risk 4.40% Personal Breast Cancer No Personal Ovarian Cancer No Treatments Excision, radiation, chemotherapy Family Cancers None LOCATION: [facility] BREAST COMPOSITION: Almost entirely fatty. [...] Walters MD on 12/15/2022 at 10:51 Normal [facility] XR DEXA BONE DENSITYon 12-15 [...] by: STEPH GRANADOS Date: 2022-12-15 09:50 Normal [facility] Fran 12-08-2022 L - -------- Specimen: [id number] Received: 12/08/22 Status: CELIA Kay Num: [id number] Spec Type: Surgical Subm Dr: Gato Domingo MD Tissues: A Colon Biopsy (DESC COL POLYP) Procedures: FLORENCIA/Shagufta Douglass/Dionna L4 -------- Age/ Patient Sex Location Account Attending Physician -------- Diana Champion 67/F [id number] Gato Domingo MD -------- SPEC NUM: [id number] RECD: 12/08/22 STATUS: CELIA KAY NUM: [id number] KENDRA: 12/08/[address] [facility] DR: Gato Domingo MD ENTERED: 12/08/[address] [facility] DR: SPEC TYPE: Surgical DEPT: S ENTERED BY: [id number] RECV BY: [id number] ORDERED: HE/2, Gross/Micro L4 ORDERED: HE/2, Gross/Micro [...] support the above pathologic diagnosis. CPT Codes 89686 -------- -------- Specimen: [id number] Received: 12/08/22 Status: CELIA Kay Num: [id number] Spec Type: Surgical Subm Dr: Gato Domingo MD Tissues: A Colon Biopsy (DESC COL POLYP) Procedures: HE/2, Gross/Micro L4 -------- Patient: Diana Champion [id number] (Continued) -------- Signed (signature on file) Eunice Rosa MD 12/09/22 1053 [facility] PAP ACOG PANEL 2: 30 to 65on 11-16-2022 . . [facility] Comment on above: Performed By: #### [id number] #### [facility] [address] [place] [address] Dr. Shayne Roldan Age Gdln ACOG Testing Comment [facility] Comment on above: Result Comment: <21 or >65 or no age provided Performed By: #### [id number] #### [facility] [address] [place] [address] Dr. Shayne Roldan DIAGNOSIS: Comment [facility] Comment on above: Result Comment: NEGA TIVE FOR INTRAEPITHELIAL LESION OR MALIGNANCY. Performed By: #### [id number] #### [facility] [address] [place] [address] Dr. Shayne Roldan Methodology: Comment [facility] Comment on above: Result Comment: This liquid based ThinPrep(R) pap test was screened with the use of an image guided system. Performed By: #### [id number] #### [facility] [address] [place] [address] Dr. Shayne Roldan Note: Comment [facility] Comment on above: Result Comment: The Pap smear is a screening test designed to aid in the detection of premalignant and malignant conditions of the uterine cervix. It is not a diagnostic procedure and should not be used as the sole means of detecting cervical cancer. Both false-positive and false-negative reports do occur. . Performed By: #### [id number] #### [facility] [address] [place] [address] Dr. Shayne Roldan Performed by: Comment Normal [facility] Comment on above: Result Comment: Onur Aguilar Airplane Patrol Pilot (ASCP) Performed By: #### [id number] #### [facility] [address] [place] [address] Dr. Shayne Roldan Specimen adequacy: Comment Normal [facility] Comment on above: Result Comment: Sati sfactory for evaluation. Endocervical and/or squamous metaplastic cells (endocervical component) are present. Performed By: #### [id number] #### [facility] [address] [place] [address] Dr. Shayne Roldan RENAL FUNCTION PANELon 08-19 Albumin [Mass/Vol] 3.4 g/dL Normal 3.4-5.0 [facility] Comment on above: Performed By: #### M G, RENAL, URIC #### [facility] [address] [place] [address] Dr. Shayne Roldan Calcium [Mass/Vol] 8.4 mg/dL Critically low 8.5-10.1 Th [facility] Comment on above: Performed By: #### M G, RENAL, URIC #### [facility] [address] [place] [address] Dr. Shayne Roldan Chloride [Moles/Vol] 103 mmol/L Normal 98-107 [facility] Comment on above: Performed By: #### M G, RENAL, URIC #### [facility] [address] [place] [address] Dr. Shayne Roldan CO2 [Moles/Vol] 27.8 mmol/L Normal 21.0-32.0 [facility] Comment on above: Performed By: #### M G, RENAL, URIC #### [facility] [address] [place] [address] Dr. Shayne Roldan Creatinine [Mass/Vol] 1.02 mg/dL Normal 0.55-1.02 [facility] Comment on above: Performed By: #### M G, RENAL, URIC #### [facility] [address] [address] [address] Shayne Roldan EGFR-AF BHUTANESE >60 Normal >=60 [facility] Comment on above: Performed By: #### M G, RENAL, URIC #### [facility] [address] [address] [address] Shayne Roldan EGFR-NON AF BHUTANESE 54 mL/min/1.73m2 Critically low >=60 [facility] Comment on above: Performed By: #### M G, RENAL, URIC #### [facility] [address] [place] [address] Dr. Shayne Roldan Glucose [Mass/Vol] 110 mg/dL Critically high 74-106 [facility] Comment on above: Performed By: #### M G, RENAL, URIC #### [facility] [address] [address] [address] Shayne Roldan Phosphate [Mass/Vol] 2.3 mg/dL Critically low 2.6-4.7 [facility] Comment on above: Performed By: #### M G, RENAL, URIC #### [facility] [address] [address] [address] Shayne Roldan Potassium [Moles/Vol] 3.2 mmol/L Critically low 3.5-5.1 [facility] Comment on above: Performed By: #### M G, RENAL, URIC #### [facility] [address] [address] [address] Shayne Roldan Sodium [Moles/Vol] 138 mmol/L Normal 136-145 [facility] Comment on above: Performed By: #### M G, RENAL, URIC #### [facility] [address] [address] [address] Shayne Roldan Urea nitrogen [Mass/Vol] 14.0 mg/dL Normal 7.0-18.0 [facility] Comment on above: Performed By: #### M G, RENAL, URIC #### [facility] [address] [place] [address] Dr. Shayne Roldan PTH INTACTon 08-06-2022 PTH, Intact 40 pg/mL Normal 15-65 [facility] Comment on above: Performed By: #### M G, RENAL, URIC #### [facility] [address] [place] [address] Dr. Shayne Roldan HEMOGRAM AND PLATELon 2021 Hematocrit (Bld) [Volume fraction] 39.8 % Normal 36.0-48.0 [facility] Comment on above: Performed By: #### M G, RENAL, URIC #### [facility] [address] [place] [address] Dr. Shayne Roldan Hemoglobin (Bld) [Mass/Vol] 13.4 g/dL Normal 12.0-16.0 [facility] Comment on above: Performed By: #### M G, RENAL, URIC #### [facility] [address] [place] [address] Dr. Shayne Roldan MCH (RBC) [Entitic mass] 30.5 pg Normal 26.7-34.0 [facility] Comment on above: Performed By: #### M G, RENAL, URIC #### [facility] [address] [place] [address] Dr. Shayne Roldan MCHC (RBC) [Mass/Vol] 33.7 g/dL Normal 29.9-35.2 [facility] Comment on above: Performed By: #### M G, RENAL, URIC #### [facility] [address] [place] [address] Dr. Shayne Roldan MCV (RBC) [Entitic vol] 90.5 fL Normal 81.0-99.0 [facility] Comment on above: Performed By: #### M G, RENAL, URIC #### [facility] [address] [place] [address] Dr. Shayne Roldan PLT 299 103/ul Normal 150-450 [facility] Comment on above: Performed By: #### M G, RENAL, URIC #### [facility] [address] [place] [address] Dr. Shayne Roldan RBC 4.40 106/ul Normal 4.20-5.40 [facility] Comment on above: Performed By: #### M G, RENAL, URIC #### [facility] [address] [address] [address] Shayne Roldan WBC 8.8 103/ul Normal 4.0-11.0 [facility] Comment on above: Performed By: #### M G, RENAL, URIC #### [facility] [address] [address] [address] Shayne Roldan MAGNESIUMon 08-05-2022 Magnesium [Mass/Vol] 1.5 mg/dL Critically low 1.8-2.4 [facility] Comment on above: Performed By: #### M G, RENAL, URIC #### [facility] [address] [address] [address] Shayne Roldan RENAL FUNCTION PANELon 08-05 Albumin [Mass/Vol] 3.5 g/dL Normal 3.4-5.0 [facility] Comment on above: Performed By: #### M G, RENAL, URIC #### [facility] [address] [address] [address] Shayne Roldan Calcium [Mass/Vol] 8.4 mg/dL Critically low 8.5-10.1 [facility] Comment on above: Performed By: #### M G, RENAL, URIC #### [facility] [address] [address] [address] Shayne Roldan Chloride [Moles/Vol] 101 mmol/L Normal 98-107 [facility] Comment on above: Performed By: #### M G, RENAL, URIC #### [facility] [address] [address] [address] Shayne Roldan CO2 [Moles/Vol] 29.5 mmol/L Normal 21.0-32.0 [facility] Comment on above: Performed By: #### M G, RENAL, URIC #### [facility] [address] [address] [address] Shayne Roldan Creatinine [Mass/Vol] 1.04 mg/dL Critically high 0.55-1.02 [facility] Comment on above: Performed By: #### M G, RENAL, URIC #### [facility] [address] [place] [address] Dr. Shayne Roldan EGFR-AF BHUTANESE >60 Normal >=60 [facility] Comment on above: Performed By: #### M G, RENAL, URIC #### [facility] [address] [place] [address] Dr. Shayne Roldan EGFR-NON AF BHUTANESE 53 mL/min/1.73m2 Critically low >=60 [facility] Comment on above: Performed By: #### M G, RENAL, URIC #### [facility] [address] [place] [address] Dr. Shayne Roldan Glucose [Mass/Vol] 92 mg/dL Normal 74-106 [facility] Comment on above: Performed By: #### M G, RENAL, URIC #### [facility] [address] [place] [address] Dr. Shayne Roldan Phosphate [Mass/Vol] 2.4 mg/dL Critically low 2.6-4.7 [facility] Comment on above: Performed By: #### M G, RENAL, URIC #### [facility] [address] [place] [address] Dr. Shayne Roldan Potassium [Moles/Vol] 2.8 mmol/L Critically low 3.5-5.1 [facility] Comment on above: Performed By: #### M G, RENAL, URIC #### [facility] [address] [place] [address] Dr. Shayne Roldan Sodium [Moles/Vol] 137 mmol/L Normal 136-145 [facility] Comment on above: Performed By: #### M G, RENAL, URIC #### [facility] [address] [place] [address] Dr. Shayne Roldan Urea nitrogen [Mass/Vol] 10.0 mg/dL Normal 7.0-18.0 [facility] Comment on above: Performed By: #### M G, RENAL, URIC #### [facility] [address] [place] [address] Dr. Shayne Roldan UA RANDOM W/MICROSCOPICon BACTERIA SMALL Abnormal NONE SEEN [facility] Comment on above: Performed By: #### U AMIC #### [facility] [address] [address] [address] Shayne Roldan Bilirubin Ql (U) Negative Normal NEGATIVE [facility] Comment on above: Performed By: #### U AMIC #### [facility] [address] [address] [address] Shayne Roldan CAST NONE SEEN Normal NONE SEEN [facility] Comment on above: Performed By: #### U AMIC #### [facility] [address] [address] [address] Shayne Roldan Clarity (U) CLEAR Normal CLEAR [facility] Comment on above: Performed By: #### U AMIC #### [facility] [address] [place] [address] Dr. Shayne Roldan Color (U) LT. YELLOW Normal YELLOW [facility] Comment on above: Performed By: #### U AMIC #### [facility] [address] [address] [address] Shayne Roldan Crystals LM Nom (Urine sed) NONE SEEN Normal NONE SEEN [facility] Comment on above: Performed By: #### U AMIC #### [facility] [address] [place] [address] Dr. Shayne Roldan Epithelial cells LM Ql (Urine sed) FEW Abnormal NONE SEEN /RARE [facility] Comment on above: Performed By: #### U AMIC #### [facility] [address] [address] [address] Shayne Roldan Glucose Ql (U) Negative Normal NEGATIVE [facility] Comment on above: Performed By: #### U AMIC #### [facility] [address] [address] [address] Shayne Roldan Hemoglobin Ql (U) Negative Normal NEGATIVE [facility] Comment on above: Performed By: #### U AMIC #### [facility] [address] [address] [address] Shayne Roldan Ketones Ql (U) Negative Normal NEGATIVE [facility] Comment on above: Performed By: #### U AMIC #### [facility] [address] [address] [address] Shayne Roldan LEUKOCYTES TRACE Abnormal NEGATIVE [facility] Comment on above: Performed By: #### U AMIC #### [facility] [address] [place] [address] Dr. Shayne Roldan MUCOUS NONE SEEN Normal NONE SEEN [facility] Comment on above: Performed By: #### U AMIC #### [facility] [address] [place] [address] Dr. Shayne Roldan Nitrite Ql (U) Negative Normal NEGATIVE [facility] Comment on above: Performed By: #### U AMIC #### [facility] [address] [place] [address] Dr. Shayne Roldan pH (U) 6.0 [pH] Normal 5-9 [facility] Comment on above: Performed By: #### U AMIC #### [facility] [address] [place] [address] Dr. Shayne Roldan RBC NONE SEEN Abnormal 0-2 [facility] Comment on above: Performed By: #### U AMIC #### [facility] [address] [place] [address] Dr. Shayne Roldan SPEC GRAVITY <=1.005 Abnormal 1.005-<=1.025 [facility] Comment on above: Performed By: #### U AMIC #### [facility] [address] [place] [address] Dr. Shayne Roldan UA PROTEIN Negative Normal NEGATIVE/ TRACE [facility] Comment on above: Performed By: #### U AMIC #### [facility] [address] [place] [address] Dr. Shayne Roldan Urobilinogen Qn (U) 0.2 {Rogelio'U}/dL Normal 0.2 - 1. 0 [facility] Comment on above: Performed By: #### U AMIC #### [facility] [address] [place] [address] Dr. Shayne Roldan WBC 5-10 Abnormal NONE SEEN [facility] Comment on above: Performed By: #### U AMIC #### [facility] [address] [address] [address] Shayne Roldan URIC ACID SERUMon 08-05-2022 Urate [Mass/Vol] 6.5 mg/dL Critically high 2.6-6.0 [facility] Comment on above: Performed By: #### M G, RENAL, URIC #### [facility] [address] [place] [address] Dr. Shayne Roldan URINE T PROTEIN CREAT RATIOo n 08-05-2022 Protein (U) [Mass/Vol] 4.8 mg/dL Normal <=12.0 [facility] Comment on above: Performed By: #### U RTPCR #### [facility] [address] [place] [address] Dr. Shayne Roldan UR PROT CREAT RAT 0.09 Normal [facility] Comment on above: Performed By: #### U RTPCR #### [facility] [address] [place] [address] Dr. Shayne Roldan URINE CREAT 52.65 mg/dL Normal 20.00-300.00 [facility] Comment on above: Performed By: #### U RTPCR #### [facility] [address] [place] [address] Dr. Shayne Roldan VITAMIN D 25 OHon 08-05-2022 VIT D 25-OH 38.9 ng/mL Normal [facility] Comment on above: Performed By: #### M G, RENAL, URIC #### [facility] [address] [place] [address] Dr. Shayne Roldan VIT D RANGES SEE BELOW Normal [facility] Comment on above: Result Comment: <20 ng/mL Vit D deficient 20 - <30 ng/mL Vit D insufficient 30 - 100 ng/mL Vit D sufficient >100 ng/mL Potential Toxicity Performed By: #### M G, RENAL, URIC #### [facility] [address] [place] [address] Dr. Shayne Roldan IMMUNOGLOBULINS IGA/IGM/IGG/ IGE QUANTITAon 07-12-2022 Immunoglobulin A, Qn, Serum 295 mg/dL Normal 87-352 [facility] Comment on above: Result Comment: Perf ormed at: CB Performed By: #### M G, RENAL, URIC #### [facility] [address] [address] [address] Shayne Roldan Immunoglobulin E, Total 32 IU/mL Normal 6-495 [facility] Comment on above: Result Comment: Perf ormed at: BN Performed By: #### M G, RENAL, URIC #### [facility] [address] [address] [address] Shayne Roldan Immunoglobulin G, Qn, Serum 729 mg/dL Normal 586-1602 [facility] Comment on above: Result Comment: Perf ormed at: CB Performed By: #### M G, RENAL, URIC #### [facility] [address] [place] [address] Dr. Shayne Roldan Immunoglobulin M, Qn, Serum 75 mg/dL Normal 26-217 [facility] Comment on above: Result Comment: Perf ormed at: CB Performed By: #### M G, RENAL, URIC #### [facility] [address] [place] [address] Dr. Shayne Roldan CBC AUTO DIFFon 07-05-2022 BASO # 0.1 103/ul Normal 0.0-0.1 [facility] Comment on above: Performed By: #### M G, RENAL, URIC #### [facility] [address] [place] [address] Dr. Shayne Roldan Basophils/100 WBC (Bld) 0.7 % Normal 0.2-2.0 [facility] Comment on above: Performed By: #### M G, RENAL, URIC #### [facility] [address] [address] [address] Shayne Roldan EO # 0.4 103/ul Normal 0.0-0.7 [facility] Comment on above: Performed By: #### M G, RENAL, URIC #### [facility] [address] [place] [address] Dr. Shayne Roldan Eosinophils/100 WBC (Bld) 4.4 % Normal 0.9-7.0 [facility] Comment on above: Performed By: #### M G, RENAL, URIC #### [facility] [address] [place] [address] Dr. Shayne Roldan Erythrocyte distribution width (RBC) [Ratio] 12.6 % Normal 11.0-15.0 [facility] Comment on above: Performed By: #### M G, RENAL, URIC #### [facility] [address] [place] [address] Dr. Shayne Roldan Hematocrit (Bld) [Volume fraction] 40.2 % Normal 36.0-48.0 [facility] Comment on above: Performed By: #### M G, RENAL, URIC #### [facility] [address] [place] [address] Dr. Shayne Roldan Hemoglobin (Bld) [Mass/Vol] 13.6 g/dL Normal 12.0-16.0 [facility] Comment on above: Performed By: #### M G, RENAL, URIC #### [facility] [address] [place] [address] Dr. Shayne Roldan IG # 0.07 10e3/ul Critically high 0.00-0.03 [facility] [place] Comment on above: Performed By: #### M G, RENAL, URIC #### [facility] [address] [place] [address] Dr. Shayne Roldan IG % 0.8 % Critically high 0.0-0.5 [facility] Comment on above: Performed By: #### M G, RENAL, URIC #### [facility] [address] [place] [address] Dr. Shayne Roldan LYMPH # 2.3 103/ul Normal 1.2-3.8 [facility] Comment on above: Performed By: #### M G, RENAL, URIC #### [facility] [address] [place] [address] Dr. Shayne Roldan Lymphocytes/100 WBC (Bld) 24.7 % Normal 20.5-60.0 [facility] Comment on above: Performed By: #### M G, RENAL, URIC #### [facility] [address] [place] [address] Dr. Shayne Roldan MANUAL DIFF REQ NO Normal [facility] Comment on above: Performed By: #### M G, RENAL, URIC #### [facility] [address] [place] [address] Dr. Shayne Roldan MCH (RBC) [Entitic mass] 30.7 pg Normal 26.7-34.0 [facility] Comment on above: Performed By: #### M G, RENAL, URIC #### [facility] [address] [place] [address] Dr. Shayne Roldan MCHC (RBC) [Mass/Vol] 33.8 g/dL Normal 29.9-35.2 [facility] Comment on above: Performed By: #### M G, RENAL, URIC #### [facility] [address] [place] [address] Dr. Shayne Roldan MCV (RBC) [Entitic vol] 90.7 fL Normal 81.0-99.0 [facility] Comment on above: Performed By: #### M G, RENAL, URIC #### [facility] [address] [place] [address] Dr. Shayne Roldan MONO # 0.7 103/ul Normal 0.3-0.8 [facility] Comment on above: Performed By: #### M G, RENAL, URIC #### [facility] [address] [place] [address] Dr. Shayne Roldan Monocytes/100 WBC (Bld) 7.7 % Normal 1.7-12.0 [facility] Comment on above: Performed By: #### M G, RENAL, URIC #### [facility] [address] [place] [address] Dr. Shayne Roldan NEUT # 5.7 103/ul Normal 1.4-6.5 [facility] Comment on above: Performed By: #### M G, RENAL, URIC #### [facility] [address] [place] [address] Dr. Shayne Roldan Neutrophils/100 WBC (Bld) 61.7 % Normal 43.0-75.0 [facility] Comment on above: Performed By: #### M G, RENAL, URIC #### [facility] [address] [place], [place] [address] Dr. Shayne Roldan Platelet mean volume (Bld) [Entitic vol] 8.8 fL Critically low 9.5-13.5 [facility] Comment on above: Performed By: #### M G, RENAL, URIC #### [facility] [address] [place], [place] [address] Dr. Shayne Roldan PLT 279 103/ul Normal 150-450 [facility] Comment on above: Performed By: #### M G, RENAL, URIC #### [facility] [address] [place], [place] [address] Dr. Shayne Roldan RBC 4.43 106/ul Normal 4.20-5.40 [facility] Comment on above: Performed By: #### M G, RENAL, URIC #### [facility] [address] [place], [place] [address] Dr. Shayne Roldan WBC 9.1 103/ul Normal 4.0-11.0 [facility] Comment on above: Performed By: #### M G, RENAL, URIC #### [facility] [address] [place], [place] [address] Dr. Shayne Rlodan Covid-19 PCR ([facility])on SARS-CoV-2 (COVID-19) RNA KAYLEE+probe Ql (Unsp spec) Not detected Normal NOT DETECTED [facility] Comment on above: Result Comment: This test is not yet approved or cleared by the [place] FDA. When there are no FDA-approved or cleared tests available, and other criteria are met, FDA can make tests available under an emergency access mechanism called an Emergency Use Authorization (EUA). The EUA for this test is supported by the [place] of Health and Human Service's (HHS's) declaration [...] By: #### M G, RENAL, URIC #### [facility] [address] [place], [place] [address] Dr. Shayne Roldan XR CHEST 2 Von [...] NARDA LONDONO Date: 2022-06-08 19:58 Normal [facility] Covid-19 PCR ([facility])on SARS-CoV-2 (COVID-19) RNA KAYLEE+probe Ql (Unsp spec) Not detected Normal NOT DETECTED [facility] Comment on above: Result Comment: This test is not yet approved or cleared by the [place] FDA. When there are no FDA-approved or cleared tests available, and other criteria are met, FDA can make tests available under an emergency access mechanism called an Emergency Use Authorization (EUA). The EUA for this test is supported by the [employer] of Health and Human Service's (HHS's) declaration [...] SARS-CoV-2. Performed By: #### C VDTBH #### [facility] [address] [place], [place] [address] Dr. Shayne Roldan DEXA AXIALon 03-01-2022 DEXA AXIAL [facility] Department of Radiology [address] [place] [address] Patient Name: DIANA CHAMPION : [...] characteristics. Electronically signed: Luzma Fernandez. Transcribed by: [email or web address], User Resident: Electronically Signed by: LUZMA FERNANDEZ @ 03/02/2022 01:07 PM Normal [facility] SCOLIOSIS 2 [facility] 02-24-2022 SCOLIOSIS 2 [facility] Department of Radiology [address] [place] [id number] Patient Name: DIANA CHAMPION : 1955 Sex: F Age: Race: White Pt. Location: Patient Status: D Ordered Date: 02/24/2022 1:25:00 PM Completed Date: 02/24/2022 01:44 PM Requesting Provider: CINDA ANTONIO Attending Provider: Report Copy To: Signs & Symptoms: M43.10 Spondylolisthesis, site unspecified I10 History: Comments: Views (X-RAY, SCOLIOSIS): PA, Lateral evaluate Exam: SCOLIOSIS 2 [facility] Scoliosis. Worsening pain. Frontal and lateral thoracolumbar spine IMPRESSION: 1. Diffuse disc disease and facet arthritis. Right convex mid lumbar curvature measuring 16 degrees. Interbody fusion hardware lower lumbar spine. Electronically signed: Hugo Lynn. Transcribed by: [email or web address], User Resident: Electronically Signed by: HUGO LYNN @ 02/26/2022 11:07 AM Normal [facility] Comment on above: Order Comment: Views (X-RAY, SCOLIOSIS): PA, Lateral evaluate CT LUMBAR SPINE W CONTRASTon 01-24-2022 CT LUMBAR SPINE W CONTRAST [facility] Department of Radiology [address] [place] [id number] Patient Name: DIANA CHAMPION : 1955 Sex: F Age: Race: White Pt. Location: Patient Status: D Ordered Date: 01/09/2022 9:00:00 AM Completed Date: 01/24/2022 03:26 PM Requesting Provider: JOO BRAVO Attending Provider: JOO BRAVO Report Copy To: UNKNOWN, PHYSICIAN Signs & [...] L1-2. Electronically signed: Gaurang Lawrence. Transcribed by: [email or web address], User Resident: Electronically Signed by: GAURANG LAWRENCE @ 01/26/2022 08:58 AM Normal [facility] Comment on above: Order Comment: , CT MYELOGRAM>PAPER WORK IN CHART LUMBAR MYELOGRAMon 2 LUMBAR MYELOGRAM [facility] Department of Radiology [address] [place] [id number] Patient Name: DIANA CHAMPION : 1955 Sex: F Age: Race: White Pt. Location: Patient Status: O Ordered Date: 01/09/2022 9:00:00 AM Completed Date: 01/24/2022 02:37 PM Requesting Provider: JOO BRAVO Attending Provider: JOO BRAVO Report Copy To: UNKNOWN, PHYSICIAN Signs & Symptoms: M54.16 Radiculopathy, lumbar region I10 History: Jessica Is patient on thinners? ASA hold 7 days needs driver wheelchair paperwork up front Comments: , CT MYELOGRAM> PAPER WORK SCANNED IN CHART , CT MYELOGRAM> PAPER WORK SCANNED IN CHART , , , Ordering Provider - JOO BRAVO MD , Exam: LUMBAR MYELOGRAM LUMBAR MYELOGRAM [...] , , , Ordering Provider - JOO BRAVO MD , INFORMED CONSENT: Reason for procedure was discussed with the patient. The procedure expectations risks benefits options and alternatives were discussed. All the questions were answered. The patient understood that results cannot be guaranteed. The procedure is indicated and risks are acceptable. Consent was obtained. Timeout: [place] protocol timeout verification performed. PROCEDURE: Estimated blood [...] report. Electronically signed: Greg Marlow. Transcribed by: [email or web address], User Resident: [email or web address] JI Electronically Signed by: GREG MARLOW @ 01/24/2022 04:07 PM I personally read this/these film(s) with this resident Normal [facility] Comment on above: Order Comment: , CT MYELOGRAM> PAPER WORK SCANNED IN CHART , CT MYELOGRAM> PAPER WORK SCANNED IN CHART , , , Ordering Provider - JOO BRAVO MD , HIP LEFT 1 OR 2 VWS WITH PEL VISon 01-06-2022 HIP LEFT 1 OR 2 VWS WITH PELVIS [facility] Department of Radiology [address] [place] [id number] Patient Name: DIANA CHAMPION : 1955 Sex: F Age: Race: White Pt. Location: Patient Status: D Ordered Date: 12/21/2021 10:45:00 AM Completed Date: 01/06/2022 01:24 PM Requesting Provider: JOO BRAVO Attending Provider: JOO BRAVO Report Copy To: Signs & Symptoms: Z96.642 Presence of left artificial hip joint I10 History: [place] Comments: Evaluate Exam: HIP LEFT 1 OR 2 VWS WITH PELVIS HIP LEFT 1 OR 2 VWS WITH PELVIS HISTORY: Hip replacement, follow-up. COMPARISON: None. IMPRESSION: 1. Redemonstrated left hip prosthesis without visible complication. 2. Advanced right hip arthritis without significant change with advanced joint space narrowing. Unchanged lumbosacral fusion hardware. Electronically signed: Joe Matthew. Transcribed by: [email or web address], User Resident: Electronically Signed by: JOE MATTHEW @ 01/09/2022 04:45 PM Normal [facility] Comment on above: Order Comment: Evalu ate Vital Signs Date Time Vital Sign Value Performing Clinician Facility 03-14-2024 10:30-0400 Body height 165.1 cm Steph Josie Work Phone: [phone] [place] [address] 03-14-2024 10:30-0400 Body mass index (BMI) [Ratio] 39 kg/m2 Steph Josie Work Phone: [phone] [place] [address] 03-14-2024 10:30-0400 Body temperature 97.4 [degF] Steph Galindo Work Phone: [facility] 03-14-2024 10:30-0400 Body weight 106.36 kg Steph Galindo Work Phone: [facility] 03-14-2024 10:30-0400 Diastolic blood pressure 80 mm[Hg] Steph Josie Work Phone: [facility] 03-14-2024 10:30-0400 Heart rate 77 /min Steph Josie Work Phone: [facility] 03-14-2024 10:30-0400 Inhaled oxygen flow rate 3 L/min Steph Josie Work Phone: [facility] 03-14-2024 10:30-0400 Respiratory rate 20 /min Steph Collier Work Phone: [facility] 03-14-2024 10:30-0400 SaO2% (BldA) [Mass fraction] 92 % Steph Amira Work Phone: [facility] 03-14-2024 10:30-0400 Systolic blood pressure 120 mm[Hg] Steph Collier Work Phone: [facility] 08-17-2023 09:20-0400 Body height 165.1 cm Herberth Joana Other [facility] Other 08-17-2023 09:20-0400 Body mass index (BMI) [Ratio] 38.1 kg/m2 Herberth Joana Other [facility] Other 08-17-2023 09:20-0400 Body temperature 98.8 [degF] Herberth Joana Other [facility] Other 08-17-2023 09:20-0400 Body weight 103.87 kg Herberth Joana Other [facility] Other 08-17-2023 09:20-0400 Diastolic blood pressure 85 mm[Hg] Herberth Joana Other [facility] Other 08-17-2023 09:20-0400 Respiratory rate 18 /min Herberth Joana Other [facility] Other 08-17-2023 09:20-0400 SaO2% (BldA) [Mass fraction] 94 % Herberth Joana Other [facility] Other 08-17-2023 09:20-0400 Systolic blood pressure 151 mm[Hg] Herberth Joana Other [facility] Other 03-02-2023 10:00-0400 Body height 165.1 cm Herberth Joana Other [facility] Other 03-02-2023 10:00-0400 Body mass index (BMI) [Ratio] 37.29 kg/m2 Herberth Joana Other [facility] Other 03-02-2023 10:00-0400 Body temperature 98.9 [degF] Herberth Joana Other [facility] Other 03-02-2023 10:00-0400 Body weight 101.65 kg Herberth Joana Other [facility] Other 03-02-2023 10:00-0400 Diastolic blood pressure 76 mm[Hg] Herberth Joana Other [facility] Other 03-02-2023 10:00-0400 Respiratory rate 20 /min Herberth Joana Other [facility] Other 03-02-2023 10:00-0400 SaO2% (BldA) [Mass fraction] 96 % Herberth Joana Other [facility] Other 03-02-2023 10:00-0400 Systolic blood pressure 136 mm[Hg] Herberth Joana Other [facility] Other 12-08-2022 09:30-0500 Diastolic blood pressure 59 mm[Hg] MD Shaikh Ohara Work Phone: [facility] 12-08-2022 09:30-0500 Heart rate 55 /min MD Shaikh Ohara Work Phone: [facility] 12-08-2022 09:30-0500 Respiratory rate 16 /min MD Shaikh Ohara Work Phone: [facility] 12-08-2022 09:30-0500 SaO2% (BldA) [Mass fraction] 96 % MD Shaikh Ohara Work Phone: [facility] 12-08-2022 09:30-0500 Systolic blood pressure 112 mm[Hg] MD Shaikh Ohara Work Phone: [facility] 12-08-2022 06:54-0500 Body height 162.56 cm MD Shaikh Ohara Work Phone: [facility] 12-08-2022 06:54-0500 Body temperature 98.2 [degF] MD Shaikh Ohara Work Phone: [facility] 12-08-2022 06:54-0500 Body weight 104.32 kg MD Shaikh Ohara Work Phone: [facility] 08-09-2022 11:00-0400 Body height 165.1 cm Herberth Joana Other [facility] Other 08-09-2022 11:00-0400 Body mass index (BMI) [Ratio] 37.87 kg/m2 Herberth Joana Other [facility] Other 08-09-2022 11:00-0400 Body temperature 97.2 [degF] Herberth Joana Other [facility] Other 08-09-2022 11:00-0400 Body weight 103.24 kg Herberth Joana Other [facility] Other 08-09-2022 11:00-0400 Diastolic blood pressure 88 mm[Hg] Herberth Joana Other [facility] Other 08-09-2022 11:00-0400 Respiratory rate 20 /min Herberth Joana Other [facility] Other 08-09-2022 11:00-0400 SaO2% (BldA) [Mass fraction] 95 % Herberth Joana Other [facility] Other 08-09-2022 11:00-0400 Systolic blood pressure 133 mm[Hg] Herberth Joana Other [facility] Other 11-17-2021 10:40-0500 Body height 165.1 cm Herberth Joana Other [facility] Other 11-17-2021 10:40-0500 Body mass index (BMI) [Ratio] 37.97 kg/m2 Herberth Joana Other [facility] Other 11-17-2021 10:40-0500 Body temperature 97.8 [degF] Herberth Joana Other [facility] Other 11-17-2021 10:40-0500 Body weight 103.51 kg Herberth Joana Other [facility] Other 11-17-2021 10:40-0500 Diastolic blood pressure 70 mm[Hg] Herberth Joana Other [facility] Other 11-17-2021 10:40-0500 Respiratory rate 18 /min Herberth Joana Other [facility] Other 11-17-2021 10:40-0500 SaO2% (BldA) [Mass fraction] 94 % Herberth Joana Other [facility] Other 11-17-2021 10:40-0500 Systolic blood pressure 130 mm[Hg] Herberth Rivera Other [facility] Other 08-30-2021 13:15-0400 Body height 165.1 cm Rena Ginty Other [facility] Other 08-30-2021 13:15-0400 Body mass index (BMI) [Ratio] 36.61 kg/m2 Rena Ginty Other [facility] Other 08-30-2021 13:15-0400 Body temperature 98.7 [degF] Rena Ginty Other [facility] Other 08-30-2021 13:15-0400 Body weight 99.79 kg Rena Ginty Other [facility] Other 08-30-2021 13:15-0400 SaO2% (BldA) [Mass fraction] 90 % Rena Ginty Other [facility] Other Encounters Encounter Date Encounter Type Care Provider Facility Start: 05-13-2024 End: 05-13-2024 ambulatory [facility] Start: 05-06-2024 End: 05-06-2024 ambulatory Jayshree Vargas MD Facility:[facility] Start: 04-17-2024 End: 04-17-2024 ambulatory SHAIKH LEV Not Available Start: 04-15-2024 End: 04-15-2024 ambulatory Jayshree Vargas MD Facility: [facility] Start: 04-11-2024 End: 04-11-2024 ambulatory SHAIKH LEV Not Available Start: 04-03-2024 End: 04-03-2024 ambulatory SAUNDERS FAWWAD Not Available Start: 03-27-2024 End: 03-27-2024 ambulatory SAUNDERS FAWWAD Not Available Start: 03-14-2024 End: 03-14-2024 ambulatory Steph Collier Work Phone: [facility] Work Phone: Start: 03-14-2024 End: 03-14-2024 Patient encounter procedure Steph Galindo Work Phone: [facility] Work Phone: Start: 03-06-2024 Non-patient / Non-visit Steph Amira Work Phone: [facility] Work Phone: Start: 02-26-2024 End: 02-26-2024 ambulatory SAUNDERS FAWWAD Not Available Start: 02-19-2024 End: 02-19-2024 ambulatory Jayshree Vargas MD Facility: [facility] Start: 02-15-2024 End: 02-15-2024 ambulatory ROSHNI AICHHOLZ Not Available Start: 01-25-2024 End: 01-25-2024 ambulatory SAUNDERS FAWWAD Not Available Start: 12-28-2023 End: 12-28-2023 ambulatory SAUNDERS FAWWAD Not Available Start: 12-18-2023 End: 12-18-2023 ambulatory Jayshree Vargas MD Facility:[facility] Start: 12-05-2023 End: 12-05-2023 ambulatory SAUNDERS FAWWAD Not Available Start: 11-13-2023 End: 11-13-2023 ambulatory Jayshree Vargas MD Facility:[facility] Start: 11-02-2023 End: 11-02-2023 ambulatory SAUNDERS FAWWAD Not Available Start: 10-09-2023 End: 10-09-2023 ambulatory Jayshree Vargas MD Facility:[facility] Start: 10-04-2023 End: 10-04-2023 ambulatory SHAIKH LEV Not Available Start: 09-07-2023 End: 09-07-2023 ambulatory Herberth Joana Other [facility] Other Start: 09-07-2023 Telephone encounter Herberth Joana [facility] Start: 08-28-2023 End: 08-28-2023 ambulatory Herberth Joana Other [facility] Other Start: 08-28-2023 Telephone encounter Herberth Joana [facility] Start: 08-21-2023 End: 08-21-2023 ambulatory Jayshree Vargas MD Facility: [place] Start: 08-17-2023 End: 08-17-2023 ambulatory Herberth Joana Other [facility] Other Start: 08-17-2023 Office outpatient visit 25 minutes Herberth Joana [facility] Start: 04-04-2023 End: 04-04-2023 ambulatory SHAIKH Dimitry OHARA Facility:[facility] Start: 03-24-2023 End: 03-25-[address] STEPH GRANADOS Facility:[facility] Start: 03-02-2023 End: 03-02-2023 ambulatory Herberth Joana Other [facility] Other Start: 03-02-2023 Office outpatient visit 25 minutes Herberth Joana [facility] Start: 02-25-2023 End: 02-26-2023 ambulatory HERBERTH JOANA Facility:[facility] Start: 02-22-2023 End: 02-23-2023 ambulatory BO MCCLAIN . Facility:[facility] Start: 12-15-2022 End: 12-16-[address] JACK HALL . Facility:[facility] Start: 12-08-2022 End: 12-08-2022 ambulatory Shaikh Lev Facility:[facility] Start: 12-08-2022 End: 12-08-2022 Admission to same day surgery center MD Shaikh Ohara Work Phone: [facility] Work Phone: Start: 12-08-2022 End: 12-08-2022 ambulatory MD Shaikh Ohara Work Phone: [facility] Work Phone: Start: 11-11-2022 End: 11-11-[address] JACK HALL . Facility:[facility] Start: 11-09-2022 End: 11-09-2022 ambulatory Aziz Bakhous Other [facility] Other Start: 11-09-2022 Telephone encounter Azkatherine Gonzalezs [facility] Start: 08-19-2022 End: 08-20-2022 ambulatory HERBERTH JOANA Facility:[facility] Start: 08-09-2022 End: 08-09-2022 ambulatory Herberth Joana Other [facility] Other Start: 08-09-2022 Office outpatient visit 10 minutes Herberth Joana [facility] Start: 08-09-2022 Telephone encounter Herberth Joana [facility] Start: 08-05-2022 Telephone encounter Herberth Joana [facility] Start: 08-05-2022 End: 08-06-2022 ambulatory HERBERTH JOANA Virgil Eduson Other Start: 07-08-2022 End: 07-08-2022 ambulatory Gato Domingo Other [facility] Other Start: 07-08-2022 Telephone encounter Gato Cesar ck [facility] Start: 07-05-2022 End: 07-06-2022 ambulatory SHAIKH Dimitry OHARA Facility:[facility] Start: 06-08-2022 End: 06-09-2022 ambulatory SHAIKH Dimitry OHARA Facility:[facility] Start: 06-07-2022 End: 06-07-2022 ambulatory SHAIKH Dimitry OHARA Facility:[facility] Start: 01-24-2022 End: 01-25-2022 ambulatory PHYSICIAN UNKNOWN Facility:[facility] [place] Start: 11-17-2021 End: 11-17-2021 ambulatory Herberth Joana Other [facility] Other Start: 11-17-2021 Office outpatient visit 15 minutes Herberth Joana [facility] Start: 08-30-2021 Office outpatient visit 15 minutes Rena Ginty [facility] Start: 09-11-2020 End: 09-11-2020 Chart abstracting Miguelito Buck Work Phone: Hematology/Oncology Start: 09-11-2020 End: 09-11-2020 Patient encounter procedure External Provider [facility] Start: 09-11-2020 Results Only External Provider [facility]ter [facility] Start: 09-30-2019 End: 09-30-2019 Patient encounter procedure [facility] [place] Start: 07-07-2017 End: 07-07-2017 Admission to day surgery [facility] Start: 05-24-2004 Evaluation and management of inpatient [facility] [place] Start: 04-26-2004 Evaluation and management of inpatient [facility] [place] Procedures Date Procedure Procedure Detail Performing Clinician Start: 12-08-2022 Colonoscopy MD Shaikh Ohara Work Phone: Start: 09-11-2020 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 Supervisor [employer] al Provider Start: 09-11-2020 EXTERNAL LAB External P rovider Start: 09-11-2020 EXTERNAL PROCEDURE Exte rnal Provider Start: 09-30-2019 Ultrasonography of b ilateral kidneys Steph Collier Plan of Treatment Date Care Activity Detail Author Start: 12-08-2022 [facility] Start: 07-07-2020 Influenza vaccination INFLUENZA (#1) [facility] Start: 2006 SHINGRIX VACCINE (1 of 2) SHINGRIX VACCINE (1 of 2) [facility] Start: 2006 Tuberculosis screening COLORECTAL CANCER SCREENING,SEE MODIFIER [facility] Start: 2001 DIABETES SCREEN DIABETES SCREEN [facility] Start: 2001 LIPID SCREEN LIPID SCREEN [facility] Start: 1996 Mammography MAMMOGRAM [facility] Start: 1986 HPV TESTING HPV TESTING [facility] Start: 1977 PAP TESTING PAP TESTING [facility] Start: 1975 Urine microalbumin profile DTAP,TDAP,TD (1 - Tdap) [facility] Start: 1974 HEPATITIS C SCREENING HEPATITIS C SCREENING [facility] Start: 1974 HIV SCREENING HIV SCREENING [facility] Patient Education Colon Polypect shahram Hemorrhoids (DC) Diverticulosis (DC) [facility] Work Phone: [facility] Immunizations Immunization Date Immunization Notes Care Provider Henrietta charles 07-18-2018 Depo-Medrol 40 mg Rena Gint y Other [facility] Other 01-31-2018 Depo-Medrol 40 mg Rena Gint y Other [facility] Other 08-09-2017 influenza virus vaccine, unspecified formulation tSeph Collier Work Phone: [facility] 08-09-2017 influenza, seasonal, injectable, preservative free Rena Ginty Other [facility] Other Payers Date Payer Category Payer Unknown 2022 Self-pay [id number] 2021 Medicare [id number] 2020 Medicaid [id number] 2019 Medicaid MEDICAID [facility] MEDICAID [id number] 2019-Present Medicaid [id number] 2016 Medicare MEDICARE MEDICAR E A AND B [id number] 2016-Present [place] [id number] 1959 Unknown [id number] 1956 Unknown [id number] 2.16.840.1.382429.3.579.2.647 1956 Unknown [id number] 2.16.840.1.168409.3.579.2.593 1956 Unknown [id number] 2.16.840.1.011921.3.579.2.593 1956 Unknown [id number] 2.16.840.1.382680.3.579.2.593 1956 Unknown [id number] 2.16.840.1.042262.3.579.2.593 1956 Unknown [id number] 2.16.840.1.011798.3.579.2.593 1956 Unknown [id number] 2.16.840.1.377439.3.579.2.593 1956 Unknown [id number] 2.16.840.1.951392.3.579.2.593 1956 Unknown [id number] 2.16.840.1.487704.3.579.2.593 1956 Unknown [id number] 2.16.840.1.524473.3.579.2.593 1956 Unknown [id number] 2.16.840.1.193852.3.579.2.593 1956 Unknown [id number] 2.16.840.1.590034.3.579.2.593 1956 Unknown [id number] 2.16.840.1.447667.3.579.2.1259 1956 Unknown [id number] 2.16.840.1.582800.3.579.2.1258 1956 Unknown [id number] 2.16.840.1.206954.3.579.2.1258 1956 Unknown [id number] 2.16.840.1.834356.3.579.2.1258 1956 Unknown [id number] 2.16.840.1.795653.3.579.2.1258 1956 Unknown [id number] 2.16.840.1.080174.3.579.2.1258 1956 Unknown [id number] 2.16.840.1.826769.3.579.2.1258 1956 Unknown [id number] 2.16.840.1.642732.3.579.2.1258 1956 Unknown [id number] 2.16.840.1.749840.3.579.2.1258 1956 Unknown [id number] 2.16.840.1.226528.3.579.2.1258 1956 Unknown [id number] 2.16.840.1.640075.3.579.2.1258 1956 Unknown [id number] 2.16.840.1.170841.3.579.2. 1956 Unknown [id number] 2.16.840.1.112447.3.579.2. 1956 Unknown [id number] 2.16.840.1.288665.3.579.2. 1956 Unknown [id number] 2.16.840.1.262565.3.579.2. 1956 Unknown [id number] 2.16.840.1.602616.3.579.2. 1956 Unknown [id number] 2.16.840.1.941543.3.579.2.196 1956 Unknown [id number] 2.16.840.1.738971.3.579.2.196 Medicare [id number] Unknown HCAP/HFA/FAP Active [id number] Unknown [id number] 2.16.840.1.692653.3.579.2.531 Social History Date Type Detail Facility Tobacco smoking stat [facility] Unknown if ever smoked [facility] Start: 1955 Sex Assigned At Female F [facility] Start: 09-11-2020 End: 03-14-2024 Tobacco smoking status PRIS Never smoker [facility] Start: 09-11-2020 Tobacco use and exposure Never used [facility] Start: 09-11-2020 Alcohol intake Lifetime non-d my (finding) [facility] Start: 09-11-2020 History SDOH Alcohol Frequency 1 [facility] Sex Assigned At Not on file [facility] Sex Assigned At Sex Assigned At [facility] Other Goals Date Patient Goal Desired Activity /State Clinical Notes 08-30-2021 to 05-13-2024 Note Date & Type Note Facility 05-13-2024 Note [facility] Cardiology Clinic Note Chief Complaint: Patient here for 1 year follow up CAD and hypertension. She was recently discharged from [facility] for Covid-19. She says hydrochlorothiazide was stopped and she isn't sure why. Has some intermittent chest pain and gets very SOB with ambulation. She sees Dr. Mcclain for COPD. HPI: Diana Champion is a 68 y.o. female With a history of nonobstructive coronary artery disease and hypertension here in follow-up. She was diagnosed with COVID at the end of March. She has been more short of breath since then. 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 Her chest pain is noncardiac. She has no other cardiac complaints. Update 05/13/2024 Doing about the same. She has been admitted at least 3-4 times for pneumonia or bronchitis. Pertinently, she has never smoked Her significant other smokes about he states that he tries to smoke outside the home She denies chest pain. She has no orthopnea, she has some paroxysmal external dyspnea. She denies lower extremity edema. Cardiology ROS: Review of Systems Cardiovascular: Positive for dyspnea on exertion and leg swelling. Respiratory: Positive for cough and wheezing. Musculoskeletal: Positive for arthritis, back pain, joint pain and myalgias. Neurological: Positive for light-headedness. All other systems reviewed and are negative. Past Medical History She has a past medical history of Asthma, Cancer ([facility]), COPD (chronic obstructive pulmonary disease) ([facility]), Coronary artery disease, GERD (gastroesophageal reflux disease), Hyperlipidemia, and Hypertension. Surgical History She has a [...] Heart failure Mother Heart disease Father Allergies Fentanyl Medications Current Outpatient Medications: albuterol 2.5 mg /3 mL (0.083 %) nebulizer solution, USE 1 VIAL IN NEBULIZER EVERY 4 TO 6 HOURS NEEDED, Disp: , Rfl: albuterol 90 mcg/actuation inhaler, INHALE 2 PUFFS BY MOUTH EVERY 4 HOURS NEEDED FOR SHORTNESS OF BREATH, Disp: , Rfl: baclofen (Lioresal) 5 mg tablet, Take 5 mg by mouth in the morning, afternoon, and at bedtime., Disp: , Rfl: cholecalciferol (Vitamin D-3) 25 MCG (1000 UT) tablet, Take 1 tablet by mouth in the morning., Disp: , Rfl: ferrous sulfate 325 (65 Fe) MG tablet, Take 325 mg by mouth every other day., Disp: , Rfl: bmbihaxpvon-vxjyxngja-hedhcfsr 100-62.5-25 mcg blister with device, , Disp: , Rfl: guaiFENesin (Mucinex) 600 mg 12 hr tablet, Take 1 tablet by mouth in the morning and at bedtime., Disp: , Rfl: magnesium oxide (Mag-Ox) 400 [...] mouth in the morning., Disp: , Rfl: PARoxetine (Paxil) 20 mg tablet, Take 1 tablet by mouth in the morning., Disp: , Rfl: pramipexole (Mirapex) 0.25 mg tablet, TAKE 1 TABLET BY MOUTH ONCE DAILY EVERY EVENING (2-3 HOURS BEFORE BEDTIME), Disp: , Rfl: pregabalin (Lyrica) 75 mg capsule, TAKE 1 CAPSULE BY MOUTH IN THE MORNING AND 1 AT BEDTIME, Disp: , Rfl: traMADol (Ultram) 50 mg tablet, Take 50 mg by mouth every 12 (twelve) hours., Disp: , Rfl: traZODone (Desyrel) 50 mg tablet, Take 1 tablet by mouth in the morning., Disp: , Rfl: Trelegy Ellipta 200-62.5-25 mcg blister with device, INHALE 1 PUFF ONCE DAILY RINSE MOUTH AFTER USE, Disp: , Rfl: alendronate (Fosamax) 70 mg tablet, 1 tablet 30 minutes before the first food, beverage or medicine of the day with plain water Orally, Disp: , Rfl: amLODIPine (Norvasc) 5 mg tablet, Take 1 tablet by mouth in the morning., Disp: , Rfl: cyclobenzaprine (Flexeril) 10 mg tablet, Take 10 mg by mouth if needed in the morning, at noon, and at bedtime., Disp: , Rfl: gabapentin (Neurontin) 300 mg capsule, Take 300 mg by mouth in the morning and at bedtime., Disp: , Rfl: potassium chloride CR (K-Tab) 20 mEq ER tablet, Take 20 mEq by mouth in the morning and at bedtime., Disp: , Rfl: solifenacin (VESIcare) 5 mg tablet, Take 5 mg by mouth in the morning., Disp: , Rfl: Last Recorded Vitals BP 132/80 (BP Location: Right wrist, Patient Position: Sitting) Pulse 73 Ht 1.651 m (5' 5 ) Wt 87.1 kg (192 lb) SpO2 91% BMI 31.95 kg/m??? Physical Examination: GENERAL: a (more content not included)... [facility] 09-07-2023 Evaluation note Encounter Date Diagnosis Assessment Notes Sep, Hypomagnesemia (ICD-10 - E83.42) [facility] Other 10-23-2023 Evaluation note* Encounter Date Diagnosis Assessment Notes Treatment Notes Treatment Clinical Notes Aug, Nico garsia kid I-IV (ICD-10 - I12.9) [facility] Other 10-12-2023 Evaluation note* Encounter Date Diagnosis [...] PPI induced GI losses. Continue oral Magnesium [facility] Other 05-19-2023 NotePROCEDURE: XR HIP RT 2 3V W PELVIS HISTORY: Pain in right hip joint , chronic COMPARISON: XR L-spine 02/26/2019, XR left hip with pelvis 03/11/2017 FINDINGS: BONES:Complete loss of the right hip joint space with arlt-za-rhcc articulation, subchondral sclerosis and cysts, and large periarticular degenerative osteophytes. No fracture or dislocation. Left hip replacement. Mechanical fusion of L5-S1 and moderate dextroscoliosis of lumbar spine. SOFT TISSUES:No visible soft tissue swelling. EFFUSION:None visible. OTHER: Negative. IMPRESSION: 1. Marked degenerative joint disease of the right hip; progressed since prior study. 2. Stable surgical changes. Electronically authenticated by: STEPH GRANADOS Date: 2023-03-24 12:55[facility]04-27-2023 Evaluation note* Encounter Date Diagnosis [...] PPI induced GI losses. Continue oral Magnesium [facility] Encounter Date Diagnosis Assessment Notes Treatment Notes Treatment Clinical Notes Nov, Hypokalemia (ICD-10 - E87.6) Nov, Hypomagnesemia (ICD-10 - E83.42) [facility] Other 10-04-2022 Evaluation note* Encounter Date Diagnosis [...] have prescribe oral Magnesium Aug, Other Patient cassandra frank that she will change her insurance and will continue to follow with me. She was informed that our office does not accept her new insurance. [facility] Other 09-02-2022 Evaluation note* Encounter Date Diagnosis Assessment Notes Treatment Notes Treatment Clinical Notes Jul, History of colon cancer (ICD-10 - Z85.038) [facility] Other 01-12-2022 Evaluation note* Encounter Date Diagnosis [...] potassium wasting. I have prescribed oral potassium. [facility] Other 10-25-2021 Evaluation note* Encounter Date Diagnosis [...] care instructions given in writting by [facility] Care At Home document [facility] Other Evaluation [facility]No [facility] Other Evaluation note* Diagnosis Onset Date Resolution Status History of colon cancer acut e [facility] Work Phone: Evaluation note* Diagnosis Onset Date Resolution Status Hypokalemia acute Hypomagnesemia acute Stage 3 chronic kidney disease acute COVID noneactive Pneumonia noneactive [facility] Work Phone: History general Narrative - [...] 09/2015 Surgical History left total hip arthoplasty 9/20 16 Surgical History (R) TKA - DR SERRATO 8 Surgical History 1 INCH OF BONE OFF OF RIGHT BALTA T 2014 Surgical History LEFT HIP RESVISION 03/2020 Hospitalization History see above 2003,198 7 Hospitalization History 1 week during chemo 2003 Hospitalization History ISSUE WITH HIP C OMING OUT AND NEEDING TO PUT IT BACK IN 08/2019 Hospitalization History HIP REVISION 03/2020 [facility] Other History general Narrative - Reported* Type [...] hip arthoplasty 07/26 16 Surgical History (R) MARIA ESTHER SERRATO 8 Surgical History 1 INCH OF BONE OFF OF RIGHT BALTA T 2014 Surgical History LEFT HIP RESVISION 03/2020 Hospitalization History see above 2003,198 7 Hospitalization History 1 week during chemo 2003 Hospitalization History ISSUE WITH HIP C OMING OUT AND NEEDING TO PUT IT BACK IN 08/2019 Hospitalization History HIP REVISION 03/2020 Hospitalization History COVID X 2 WEEKS 04/2023 [facility] Other Hospital Discharge instructions Additional Instructions DISCHARGE [...] if you have any problems. -Office number [phone] Work Phone: Advance Directives No Advanced Directives [...] or prosecute any alcohol or drug abuse patient.[facility] the event this information is protected by the Federal Confidentiality of Alcohol and Drug Abuse Patient Records regulations: The Federal rules restrict any use of the information to criminally investigate or prosecute any alcohol or drug abuse patient.[facility] the event this information is protected by the Federal Confidentiality of Alcohol and Drug Abuse Patient Records regulations: The Federal rules restrict any use of the information to criminally investigate or prosecute any alcohol or drug abuse patient.[facility] the event this information is protected by the Federal Confidentiality of Alcohol and Drug Abuse Patient Records regulations: The Federal rules restrict any use of the information to criminally investigate or prosecute any alcohol or drug abuse patient.[facility] INFORMATION SOURCE (unrecogn ized section and content) DATE CREATED AUTHOR 03/03/2022 [facility] DATE CREATED AUTHOR AUTHOR'S ORGANIZ ATION 04/17/2023 [facility] DATE CREATED AUTHOR AUTHOR'S ORGANIZ ATION 06/07/2023 [facility] DATE CREATED AUTHOR AUTHOR'S ORGANIZ ATION [facility]/18/2024 [facility] DATE CREATED AUTHOR AUTHOR'S ORGANIZ ATION 05/09/2024 [facility] DATE CREATED AUTHOR AUTHOR'S ORGANIZ ATION 05/13/2024 [facility] REASON FOR VISIT (unrecogniz ed section [...] Steph Collier Attending Provider Active Start: Paolo 2003 Team Status: Active Member Role Status [...] March 14, 2024 End: March 14, 2024 eHrberth Rivera MD Attending Provider Active Start : [...] BE BASED ON THE PRIMARY CLINICAL RECORDS. [employer] [facility]. provides no warranty or guarantee of the accuracy or completeness of information in this document.
--- NOTE | 2024-05-28 07:00 | CA_ITS ---
Patient Name: JHONATAN MONTOYA MR#: [id number] : 1955 Exam Date: 05/28/2024 Ordering Doctor: DR HETAL SCALES M.D. ECHOCARDIOGRAM REPORT PROCEDURE: CA ECHO DOPPLER COMPLETE INDICATIONS: Pulmonary hypertension, COPD, congestive heart failure COMPARISON: None. DESCRIPTION: COMPLETE ECHOCARDIOGRAM Real-time transthoracic echocardiography with 2D, M-mode, spectral and color flow Doppler performed. QUALITY: Technical quality was good. LEFT VENTRICLE: Normal chamber size. Normal left ventricular wall thickness. Low normal systolic function. LV EF: Low normal left ventricular ejection fraction, (50%). DIASTOLIC: Normal diastolic function. ATRIAL SEPTUM: Visually appears intact. LEFT ATRIUM: Normal chamber size. RIGHT ATRIUM: Normal chamber size. RIGHT VENTRICLE: Normal chamber size. Normal right ventricular systolic function. TRICUSPID VALVE: Normal mobility and thickness. No stenosis with mild regurgitation. Doppler studies reveal severely (>60) elevated right sided pressures. RVSP 65 mmHg MITRAL VALVE: Normal mobility and thickness. No evidence of mitral valve stenosis. There is no mitral annular calcification. Trivial mitral regurgitation. AORTIC VALVE: Normal trileaflet appearance. No visible sclerosis. Normal leaflet mobility. No evidence of aortic valve stenosis. Trivial aortic regurgitation. AORTIC ROOT: Normal diameter and appearance. Ascending aorta is normal in size. PULMONIC VALVE: Normal thickness and mobility. No stenosis. Trivial regurgitation. PERICARDIUM: No evidence of pericardial effusion. IVC: IVC is dilated (2.3 cm) with no collapse. PLEURA: CONCLUSION: 1. Left ventricle is normal in size and exhibits no low normal systolic function. LVEF is estimated at 50%. 2. Normal right ventricular size and systolic function. 3. Mild tricuspid regurgitation. 4. Severely elevated right-sided pressures. RVSP is 65 mmHg. Adult Echocardiography Procedure Report Left Ventricle LVEDD (3.7 - 5.6 cm): 5.28 cm LVESD (2.2 - 4.0 cm): 3.44 cm LVIVS thickness (0.6 - 1.2 cm): 0.76 cm LVPW thickness (0.5 - 1.0 cm): 0.86 cm e': 0.10 m/s E - e': 6.45 LVOT Max Gradient: 8.15 mm[Hg] LVOT Area (cm2): 1.43 m/s Peak Velocity (LVOT): 1.43 m/s Mean Velocity (LVOT): 0.87 m/s LVOT Diameter 2.17 cm Left Atrium LA Volume Index (2D A2C): 30.07 ml/m2 Left Atrium Systolic Dimension: 3.09 cm Mitral Valve MV E to A Ratio: 0.79 Mitral Valve A-Wave Peak Velocity: 0.82 m/s Mitral Valve E-Wave Peak Velocity: 0.65 m/s Right Ventricle Aorta AO Root Diam: 3.27 cm Ascending Ao Diam: 2.91 cm Aortic Valve AoV Area (Peak Rafita): 3.51 cm2, 3.51 cm2 AoV Area (VTI): 3.12 cm2, 3.12 cm2 Peak Velocity(Antegrade Flow): 1.50 m/s Peak Gradient(Antegrade Flow): 9.02 mm[Hg] Mean Velocity(Antegrade Flow): 0.98 m/s Mean Gradient(Antegrade Flow): 4.43 mm[Hg] Velocity Time Integral: 34.14 cm Tricuspid Valve Peak Velocity (Regurgitant Flow): 3.53 m/s, 3.24 m/s Pulmonic Valve Mean Gradient: 2.46 mm[Hg] Mean Velocity: 0.73 m/s Peak Velocity: 1.19 m/s, 1.27 m/s Peak Gradient: 6.47 mm[Hg], 5.68 mm[Hg] Right Atrium Right Atrium Systolic Pressure: 38.40 ml, 38.40 ml Dictated by: Jim Limon M.D. on 05/29/2024 at 15:46 Approved by: Jim Limon M.D. on 05/29/2024 at 15:49
== END 2024-05-28 06:46 | disposition home or self-care (01) ==
LOC: CARD 06:46
PROVIDERS: PCP Internal Medicine; Visit Provider Internal Medicine Interventional Cardiology
DX: I27.20 Pulmonary hypertension, unspecified (principal)
CPT/HCPCS: 93306

== ENCOUNTER 2024-06-06 18:15 | Inpatient (IN) | payer OTHER, SELFPAY ==
[2024-06-06] VITALS (30 sets, daily range): BP systolic 105–164; BP diastolic 68–93; PULSE 62–77; TEMP 36.4–36.9; O2SAT 79–96; BMI 39.5; BMI 42.0
--- OUTSIDE RECORDS SUMMARY | 2024-06-06 18:27 | XMS_ITS | CCD ---
Author Organization [facility] Care Team Providers Care Cable Installer Name Role Phone Steph Collier Attending Provider Unavailable Chantel Rainey Primary Care Provider Unavailabl e Joana, Herberth Attending Provider Unavailable Unavailable Primary Care Provider Unavailabl e UNKNOWN, PHYSICIAN Referring Unavailable JOO BRAVO Attending Unavailable JOO BRAVO Admitting Unavailable UNKNOWN, PHYSICIAN Primary Care Unavailable Rena Hurd Unavailable Joana, Herberth Unavailable Gato Domingo Unavailable Steph Collier Attending Provider [phone] MD Gato Domingo Attending Provider MD [...] e FAWWAD, SAUNDERS H Primary Care Unavailable VALHER[place]O [place], DR BRITTANY Elizondo Consulting Unavailable ZIEBBETH, DR [...] Chatterjee Admitting Unavailabl Steph Strange Attending Provider FAWWAD, SAUNDERS Attending Unavailable FAWWAD, [...] Translations: [fentanyl] Drug Allergy 07-07-20 17 Hallucinating [facility] (1 source) linezolid; Translations: [LINEZOLID] Drug Allergy 03-17-20 20 [facility] (20 sources) Vancomycin; Translations: [VANCOMYCIN] Drug Allergy 03-17-20 20 Unknown, Unknown Reaction [facility] (12 sources) DENIES METAL SENSITITIVITY Propensity to adverse reactions 03-14-20 24 Unknown, Unknown Reaction [facility] Medications Current Medications Medication Drug Class(es) Dates Sig (Normalized) Sig (Original) 30 ACTUAT fluticasone furoate 0.2 MG/ACTUAT / umeclidinium 0.0625 MG/ACTUAT / vilanterol 0.025 MG/ACTUAT Dry Powder Inhaler [Trelegy] (2 sources) take 1 puff(s) by inhalation once daily Trelegy Ellipta 200-62.5-25 MCG/INH 1 puff Inhalation Once a day Active [id number] 200 actuat albuterol 0.09 mg/actuat metered dose [...] 14, 2024 12:00am Start: 12-08-2022 End: 03-14-2024 Gqmpujfldqg-Qxzvgrvqb-Epyuzn er (Trelegy Ellipta) 200-62.5-25 mcg blister with [...] 14, 2024 10:41am take 1 capsule by [facility] every twelve hours Omeprazole 20 MG 1 CAPSULE Orally TWICE A DAY Active take 1 capsule by [facility] once daily Omeprazole 20 MG 1 [...] 1 puff(s) by inhalation twice daily Ipratropium Bunker (Atrovent Hfa) 17 mcg/actuation Hfa Aerosol Inhaler [...] Range Facility Office Visiton 05-13-2024 Follow-up visit [id number] Nell Champion 1955 F Date Provider Department Center 05/13/2024 Siddharth-HETAL SCALES Family History Problem Relation Age of Onset Heart failure Mother Heart disease Father Family Status - Relation Status Age at Mother Father Level of Service:46983 NE OFFICE/OUTPATIENT ESTABLISHED MOD MDM 30 MIN Normal [facility] Erythrocyte distribution wid th Auto (RBC) [Ratio]on 03-06-2024 Erythrocyte distribution width (RBC) [Ratio] 13.2 % 11.0-15.0 [facility] Estimated glomerular filtrat ion rate (GFR) non- Americanon 03-06-2024 GFR/1.73 sq M.predicted among non-blacks MDRD (S/P/Bld) [Vol rate/Area] 57 mL/min/{1.73_m2} >=60 [facility] Hematocrit Auto (Bld) [Volum e fraction]on 03-06-2024 Hematocrit (Bld) [Volume fraction] 38.7 % 36.0-48.0 [facility] Hemoglobin [Mass/volume] in Bloodon 03-06-2024 Hemoglobin (Bld) [Mass/Vol] 12.2 g/dL 12.0-16.0 [facility] Laboratory - Chemistry and C hemistry - challengeon 03-06-2024 Albumin [Mass/Vol] 3.0 g/dL 3.4-5.0 [facility] Calcium [Mass/Vol] 8.8 mg/dL 8.5-10.1 [facility] Chloride [Moles/Vol] 104 mmol/L 98-107 [facility] CO2 [Moles/Vol] 32.2 mmol/L 21.0-32.0 [facility] Creatinine [Mass/Vol] 0.97 mg/dL 0.55-1.02 [facility] GFR/1.73 sq M.predicted MDRD (S/P/Bld) [Vol rate/Area] mL/min/{1.73_m2} >=60 [facility] Glucose [Mass/Vol] 67 mg/dL 74-106 [facility] Magnesium [Mass/Vol] 1.9 mg/dL 1.8-2.4 [facility] Potassium [Moles/Vol] 3.4 mmol/L 3.5-5.1 [facility] Sodium [Moles/Vol] 143 mmol/L 136-145 [facility] Urate [Mass/Vol] 5.0 mg/dL 2.6-6.0 [facility] Urea nitrogen [Mass/Vol] 16.0 mg/dL 7.0-18.0 [facility] Urea nitrogen/Creatinine [Mass ratio] 16.5 mg/mg [facility] Leukocytes [#/volume] correc melanie for nucleated erythrocytes in Blood by Automated counon 03-06-2024 WBC corrected for nucl RBC Auto (Bld) [#/Vol] 8.1 10 3/uL 4.0-11.0 [facility] MCH Auto (RBC) [Entitic mass ]on 03-06-2024 MCH (RBC) [Entitic mass] 30.4 pg 26.7-34.0 [facility] MCHC Auto (RBC) [Mass/Vol]on 03-06-2024 MCHC (RBC) [Mass/Vol] 31.5 g/dL 29.9-35.2 [facility] MCV Auto (RBC) [Entitic vol] on 03-06-2024 MCV (RBC) [Entitic vol] 96.5 fL 81.0-99.0 [facility] No Panel Informationon 03-06 Urine Random Creatinine 63.27 mg/dL 20.00-300.00 [facility] Urine Random Total Protein <6.0 mg/dL <=11.9 [facility] 25-Hydroxy Vitamin D Total 37.1 ng/mL [facility] Comment on above: <20 ng/mL Vit D defi cient20-<30 ng/mL Vit D drzzkmvpbult75-111 ng/mL Vit D sufficient>100 ng/mL Potential Toxicity Parathyroid Hormone (Intact) 36 pg/mL 15-65 [facility] Comment on above: Performed at: [facility] [employer] [address] [id number] Director: Raphael Marrero PhD, Phone: [phone] Phosphorus Level 3.2 mg/dL 2.6-4.7 [facility] Platelet mean volume Auto (B ld) [Entitic vol]on 03-06-2024 Platelet mean volume (Bld) [Entitic vol] 9.1 fL 9.5-13.5 [facility] Platelets Auto (Bld) [#/Vol] on 03-06-2024 Platelets (Bld) [#/Vol] 247 10 3/uL 150-450 [facility] RBC Auto (Bld) [#/Vol]on RBC (Bld) [#/Vol] 4.01 10 6/uL 4.20-5.40 [facility] Serum or plasma anion gap de terminationon 03-06-2024 Anion gap [Moles/Vol] 10.2 mmol/L [facility] SYMPTOMATIC COVID-19 ANTIGEN on 04-04-2023 EUA Statement SEE BELOW Normal [facility] Comment on above: Result Comment: [...] sooner. Performed By: #### C VDAGS #### [facility] [address] [place] [address] Dr. Shayne Roldan SARS-CoV-2 (COVID-19) RNA KAYLEE+probe Ql (Unsp spec) Positive Abnormal NEGATIVE [facility] Comment on above: Performed By: #### C VDAGS #### [facility] [address] [place] [address] Dr. Shayne Roldan XR LSPINE 2_3 VIEWSon [...] STEPH GRANADOS Date: 2023-03-24 12:52 Normal [facility] PTH INTACTon 02-27-2023 PTH, Intact 87 pg/mL Critically high 15-65 [facility] Comment on above: Performed By: #### P THINT #### [facility] [address] [place] [address] Dr. Shayne Roldan HEMOGRAM AND PLATELon 2022 Hematocrit (Bld) [Volume fraction] 44.4 % Normal 36.0-48.0 [facility] Comment on above: Performed By: #### H H #### [facility] [address] [place] [address] Dr. Shayne Roldan Hemoglobin (Bld) [Mass/Vol] 14.5 g/dL Normal 12.0-16.0 [facility] Comment on above: Performed By: #### H H #### [facility] [address] [place] [address] Dr. Shayne Roldan MCH (RBC) [Entitic mass] 30.3 pg Normal 26.7-34.0 [facility] Comment on above: Performed By: #### H H #### [facility] [address] [place] [address] Dr. Shayne Roldan MCHC (RBC) [Mass/Vol] 32.7 g/dL Normal 29.9-35.2 [facility] Comment on above: Performed By: #### H H #### [facility] [address] [place] [address] Dr. Shayne Roldan MCV (RBC) [Entitic vol] 92.9 fL Normal 81.0-99.0 [facility] Comment on above: Performed By: #### H H #### [facility] [address] [place] [address] Dr. Shayne Roldan PLT 367 103/ul Normal 150-450 [facility] Comment on above: Performed By: #### H H #### [facility] [address] [place] [address] Dr. Shayne Roldan RBC 4.78 106/ul Normal 4.20-5.40 [facility] Comment on above: Performed By: #### H H #### [facility] [address] [place] [address] Dr. Shayne Roldan WBC 9.9 103/ul Normal 4.0-11.0 [facility] Comment on above: Performed By: #### H H #### [facility] [address] [place] [address] Dr. Shayne Roldan MAGNESIUMon 02-25-2023 Magnesium [Mass/Vol] 1.6 mg/dL Critically low 1.8-2.4 [facility] Comment on above: Performed By: #### M G, RENAL, URIC #### [facility] [address] [address] [address] Shayne Roldan RENAL FUNCTION PANELon 02-25 Albumin [Mass/Vol] 3.4 g/dL Normal 3.4-5.0 The [facility] Comment on above: Performed By: #### M G, RENAL, URIC #### [facility] [address] [place] [address] Dr. Shayne Roldan Calcium [Mass/Vol] 8.7 mg/dL Normal 8.5-10.1 The [facility] Comment on above: Performed By: #### M G, RENAL, URIC #### [facility] [address] [place] [address] Dr. Shayne Roldan Chloride [Moles/Vol] 104 mmol/L Normal 98-107 [facility] Comment on above: Performed By: #### M G, RENAL, URIC #### [facility] [address] [place] [address] Dr. Shayne Roldan CO2 [Moles/Vol] 25.9 mmol/L Normal 21.0-32.0 [facility] Comment on above: Performed By: #### M G, RENAL, URIC #### [facility] [address] [place] [address] Dr. Shayne Roldan Creatinine [Mass/Vol] 1.19 mg/dL Critically high 0.55-1.02 [facility] Comment on above: Performed By: #### M G, RENAL, URIC #### [facility] [address] [place] [address] Dr. Shayne Roldan EGFR-AF FILIPINO 55 mL/min/1.73m2 Critically low >=60 [facility] Comment on above: Performed By: #### M G, RENAL, URIC #### [facility] [address] [place] [address] Dr. Shayne Roldan EGFR-NON AF FILIPINO 45 mL/min/1.73m2 Critically low >=60 [facility] Comment on above: Performed By: #### M G, RENAL, URIC #### [facility] [address] [address] [address] Shayne Roldan Glucose [Mass/Vol] 193 mg/dL Critically high 74-106 [facility] Comment on above: Performed By: #### M G, RENAL, URIC #### [facility] [address] [place] [address] Dr. Shayne Roldan Phosphate [Mass/Vol] 3.2 mg/dL Normal 2.6-4.7 [facility] Comment on above: Performed By: #### M G, RENAL, URIC #### [facility] [address] [place] [address] Dr. Shayne Roldan Potassium [Moles/Vol] 3.9 mmol/L Normal 3.5-5.1 [facility] Comment on above: Performed By: #### M G, RENAL, URIC #### [facility] [address] [place] [address] Dr. Shayne Roldan Sodium [Moles/Vol] 140 mmol/L Normal 136-145 [facility] Comment on above: Performed By: #### M G, RENAL, URIC #### [facility] [address] [place] [address] Dr. Shayne Roldan Urea nitrogen [Mass/Vol] 17.0 mg/dL Normal 7.0-18.0 [facility] Comment on above: Performed By: #### M G, RENAL, URIC #### [facility] [address] [place] [address] Dr. Shayne Roldan UA RANDOM W/MICROSCOPICon BACTERIA TRACE Abnormal NONE SEEN [facility] Comment on above: Performed By: #### M G, RENAL, URIC #### [facility] [address] [place] [address] Dr. Shayne Roldan Bilirubin Ql (U) Negative Normal NEGATIVE [facility] Comment on above: Performed By: #### M G, RENAL, URIC #### [facility] [address] [place] [address] Dr. Shayne Roldan CAST NONE SEEN Normal NONE SEEN [facility] Comment on above: Performed By: #### M G, RENAL, URIC #### [facility] [address] [address] [address] Shayne Roldan Clarity (U) CLEAR Normal CLEAR [facility] Comment on above: Performed By: #### M G, RENAL, URIC #### [facility] [address] [address] [address] Shayne Roldan Color (U) LT. YELLOW Normal YELLOW [facility] Comment on above: Performed By: #### M G, RENAL, URIC #### [facility] [address] [address] [address] Shayne Roldan Crystals LM Nom (Urine sed) NONE SEEN Normal NONE SEEN [facility] Comment on above: Performed By: #### M G, RENAL, URIC #### [facility] [address] [place] [address] Dr. Shayne Roldan Epithelial cells LM Ql (Urine sed) RARE Normal NONE SEEN /RARE [facility] Comment on above: Performed By: #### M G, RENAL, URIC #### [facility] [address] [address] [address] Shayne Roldan Glucose Ql (U) Negative Normal NEGATIVE [facility] Comment on above: Performed By: #### M G, RENAL, URIC #### [facility] [address] [place] [address] Dr. Shayne Roldan Hemoglobin Ql (U) Negative Normal NEGATIVE [facility] Comment on above: Performed By: #### M G, RENAL, URIC #### [facility] [address] [address] [address] Shayne Roldan Ketones Ql (U) Negative Normal NEGATIVE [facility] Comment on above: Performed By: #### M G, RENAL, URIC #### [facility] [address] [place] [address] Dr. Shayne Roldan LEUKOCYTES Negative Normal NEGATIVE [facility] Comment on above: Performed By: #### M G, RENAL, URIC #### [facility] [address] [address] [address] Shayne Roldan MUCOUS NONE SEEN Normal NONE SEEN [facility] Comment on above: Performed By: #### M G, RENAL, URIC #### [facility] [address] [address] [address] Shayne Roldan Nitrite Ql (U) Negative Normal NEGATIVE [facility] Comment on above: Performed By: #### M G, RENAL, URIC #### [facility] [address] [address] [address] Shayne Roldan pH (U) 5.0 [pH] Normal 5-9 [facility] Comment on above: Performed By: #### M G, RENAL, URIC #### [facility] [address] [address] [address] Shayne Roldan RBC 0-2 Normal 0-2 [facility] Comment on above: Performed By: #### M G, RENAL, URIC #### [facility] [address] [place] [address] Dr. Shayne Roldan SPEC GRAVITY 1.025 Normal 1.005-<=1.025 [facility] Comment on above: Performed By: #### M G, RENAL, URIC #### [facility] [address] [place] [address] Dr. Shayne Roldan UA PROTEIN Negative Normal NEGATIVE/ TRACE [facility] Comment on above: Performed By: #### M G, RENAL, URIC #### [facility] [address] [place] [address] Dr. Shayne Roldan Urobilinogen Qn (U) 0.2 {Rogelio'U}/dL Normal 0.2 - 1. 0 [facility] Comment on above: Performed By: #### M G, RENAL, URIC #### [facility] [address] [address] [address] Shayne Roldan WBC 0-2 Abnormal NONE SEEN [facility] Comment on above: Performed By: #### M G, RENAL, URIC #### [facility] [address] [place] [address] Dr. Shayne Roldan URIC ACID SERUMon 02-25-2023 Urate [Mass/Vol] 6.1 mg/dL Critically high 2.6-6.0 [facility] Comment on above: Performed By: #### M G, RENAL, URIC #### [facility] [address] [place] [address] Dr. Shayne Roldan URINE T PROTEIN CREAT RATIOo n 02-25-2023 Protein (U) [Mass/Vol] 13.0 mg/dL Critically high <=12.0 [facility] Comment on above: Performed By: #### M G, RENAL, URIC #### [facility] [address] [address] [address] Shayne Roldan UR PROT CREAT RAT 0.16 Normal [facility] Comment on above: Performed By: #### M G, RENAL, URIC #### [facility] [address] [place] [address] Dr. Shayne Roldan URINE CREAT 83.60 mg/dL Normal 20.00-300.00 [facility] Comment on above: Performed By: #### M G, RENAL, URIC #### [facility] [address] [place] [address] Dr. Shayne Roldan VITAMIN D 25 OHon 02-25-2023 VIT D 25-OH 41.6 ng/mL Normal [facility] Comment on above: Performed By: #### M G, RENAL, URIC #### [facility] [address] [place] [address] Dr. Shayne Roldan VIT D RANGES SEE BELOW Normal [facility] Comment on above: Result Comment: <20 ng/mL Vit D deficient 20 - <30 ng/mL Vit D insufficient 30 - 100 ng/mL Vit D sufficient >100 ng/mL Potential Toxicity Performed By: #### M G, RENAL, URIC #### [facility] [address] [place] [address] Dr. Shayne Roldan XR CHEST 2 Von [...] Date: 2023-02-22 16:15 Normal [facility] MAMM SCREEN 3D PRATEEK CADon 12-15-2022 MG MAMM SCREEN 3D PRATEEK CAD Patient: DIANA CHAMPION Exam Date: 12/15/2022 : 1955 Gender:F Ordering : DR JACK HALL . Admission #: [id number] Family : Order #: [id number] CLICK HERE TO VIEW EXAM RADIOLOGY REPORT PROCEDURE: MAMMOGRAM SCREENING 3D BILATERAL CAD COMPARISON: MG MAMM SCREEN 3D PRATEEK CAD, 11/26/2021. INDICATIONS: Calculator Name NCI Breast Cancer Risk Assessment Tool 5 Year Breast Cancer Risk 1.20% Lifetime Breast Cancer Risk 4.40% Personal Breast Cancer No Personal Ovarian Cancer No Treatments Excision, radiation, chemotherapy Family Cancers None LOCATION: [facility] BREAST COMPOSITION: Almost entirely fatty. [...] Walters MD on 12/15/2022 at 10:51 Normal [facility] XR DEXA BONE DENSITYon 12-15 [...] by: STEPH GRANADOS Date: 2022-12-15 09:50 Normal [facility] Fran 12-08-2022 L - -------- Specimen: [id number] Received: 12/08/22 Status: CELIA Kay Num: [id number] Spec Type: Surgical Subm Dr: Gato Domingo MD Tissues: A Colon Biopsy (DESC COL POLYP) Procedures: FLORENCIA/Shagufta Douglass/Dionna L4 -------- Age/ Patient Sex Location Account Attending Physician -------- Diana Champion 67/F [id number] Gato Domingo MD -------- SPEC NUM: [id number] RECD: 12/08/22 STATUS: CELIA KAY NUM: [id number] KENDRA: 12/08/22 [facility] DR: Gato Domingo MD ENTERED: 12/08/[address] [facility] [address]: SPEC TYPE: Surgical DEPT: S ENTERED BY: [id number] RECV BY: [id number] ORDERED: HE/2, Gross/Micro L4 ORDERED: HE/2, Gross/Micro [...] support the above pathologic diagnosis. CPT Codes 45641 -------- -------- Specimen: [id number] Received: 12/08/22 Status: CELIA Kay Num: [id number] Spec Type: Surgical Subm Dr: Gato Domingo MD Tissues: A Colon Biopsy (DESC COL POLYP) Procedures: HE/2, Gross/Micro L4 -------- Patient: Diana Champion [id number] (Continued) -------- Signed (signature on file) Eunice Rosa MD 12/09/22 1053 [facility] PAP ACOG PANEL 2: 30 to 65on 11-16-2022 . . [facility] Comment on above: Performed By: #### [id number] #### [facility] [address] [place] [address] Dr. Shayne Roldan Age Gdln ACOG Testing Comment [facility] Comment on above: Result Comment: <21 or >65 or no age provided Performed By: #### [id number] #### [facility] [address] [place] [address] Dr. Shayne Roldan DIAGNOSIS: Comment [facility] Comment on above: Result Comment: NEGA TIVE FOR INTRAEPITHELIAL LESION OR MALIGNANCY. Performed By: #### [id number] #### [facility] [address] [place] [address] Dr. Shayne Roldan Methodology: Comment [facility] Comment on above: Result Comment: This liquid based ThinPrep(R) pap test was screened with the use of an image guided system. Performed By: #### [id number] #### [facility] [address] [place] [address] Dr. Shayne Roldan Note: Comment [facility] Comment on above: Result Comment: The Pap smear is a screening test designed to aid in the detection of premalignant and malignant conditions of the uterine cervix. It is not a diagnostic procedure and should not be used as the sole means of detecting cervical cancer. Both false-positive and false-negative reports do occur. . Performed By: #### [id number] #### [facility] [address] [place] [address] Dr. Shayne Roldan Performed by: Comment Normal [facility] Comment on above: Result Comment: Onur Aguilar Cover Mat Machine Operator (ASCP) Performed By: #### [id number] #### [facility] [address] [place] [address] Dr. Shayne Roldan Specimen adequacy: Comment Normal [facility] Comment on above: Result Comment: Sati sfactory for evaluation. Endocervical and/or squamous metaplastic cells (endocervical component) are present. Performed By: #### [id number] #### [facility] [address] [place] [address] Dr. Shayne Roldan RENAL FUNCTION PANELon 08-19 Albumin [Mass/Vol] 3.4 g/dL Normal 3.4-5.0 [facility] Comment on above: Performed By: #### M G, RENAL, URIC #### [facility] [address] [place] [address] Dr. Shayne Roldan Calcium [Mass/Vol] 8.4 mg/dL Critically low 8.5-10.1 [facility] Comment on above: Performed By: #### M G, RENAL, URIC #### [facility] [address] [place] [address] Dr. Shayne Roldan Chloride [Moles/Vol] 103 mmol/L Normal 98-107 [facility] Comment on above: Performed By: #### M G, RENAL, URIC #### [facility] [address] [place] [address] Dr. Shayne Roldan CO2 [Moles/Vol] 27.8 mmol/L Normal 21.0-32.0 [facility] Comment on above: Performed By: #### M G, RENAL, URIC #### [facility] [address] [place] [address] Dr. Shayne Roldan Creatinine [Mass/Vol] 1.02 mg/dL Normal 0.55-1.02 [facility] Comment on above: Performed By: #### M G, RENAL, URIC #### [facility] [address] [address] [address] Shayne Roldan EGFR-AF FILIPINO >60 Normal >=60 [facility] Comment on above: Performed By: #### M G, RENAL, URIC #### [facility] [address] [address] [address] Shayne Roldan EGFR-NON AF FILIPINO 54 mL/min/1.73m2 Critically low >=60 [facility] Comment on above: Performed By: #### M G, RENAL, URIC #### [facility] [address] [place] [address] Dr. Shayne Roldan Glucose [Mass/Vol] 110 mg/dL Critically high 74-106 [facility] Comment on above: Performed By: #### M G, RENAL, URIC #### [facility] [address] [address] [address] Shayne Roldan Phosphate [Mass/Vol] 2.3 mg/dL Critically low 2.6-4.7 [facility] Comment on above: Performed By: #### M G, RENAL, URIC #### [facility] [address] [address] [address] Shayne Roldan Potassium [Moles/Vol] 3.2 mmol/L Critically low 3.5-5.1 [facility] Comment on above: Performed By: #### M G, RENAL, URIC #### [facility] [address] [address] [address] Shayne Roldan Sodium [Moles/Vol] 138 mmol/L Normal 136-145 [facility] Comment on above: Performed By: #### M G, RENAL, URIC #### [facility] [address] [address] [address] Shayne Roldan Urea nitrogen [Mass/Vol] 14.0 mg/dL Normal 7.0-18.0 [facility] Comment on above: Performed By: #### M G, RENAL, URIC #### [facility] [address] [place] [address] Dr. Shayne Roldan PTH INTACTon 08-06-2022 PTH, Intact 40 pg/mL Normal 15-65 [facility] Comment on above: Performed By: #### M G, RENAL, URIC #### [facility] [address] [place] [address] Dr. Shayne Roldan HEMOGRAM AND PLATELon 2021 Hematocrit (Bld) [Volume fraction] 39.8 % Normal 36.0-48.0 [facility] Comment on above: Performed By: #### M G, RENAL, URIC #### [facility] [address] [place] [address] Dr. Shayne Roldan Hemoglobin (Bld) [Mass/Vol] 13.4 g/dL Normal 12.0-16.0 [facility] Comment on above: Performed By: #### M G, RENAL, URIC #### [facility] [address] [place] [address] Dr. Shayne Roldan MCH (RBC) [Entitic mass] 30.5 pg Normal 26.7-34.0 [facility] Comment on above: Performed By: #### M G, RENAL, URIC #### [facility] [address] [place] [address] Dr. Shayne Roldan MCHC (RBC) [Mass/Vol] 33.7 g/dL Normal 29.9-35.2 [facility] Comment on above: Performed By: #### M G, RENAL, URIC #### [facility] [address] [place] [address] Dr. Shayne Roldan MCV (RBC) [Entitic vol] 90.5 fL Normal 81.0-99.0 [facility] Comment on above: Performed By: #### M G, RENAL, URIC #### [facility] [address] [place] [address] Dr. Shayne Roldan PLT 299 103/ul Normal 150-450 [facility] Comment on above: Performed By: #### M G, RENAL, URIC #### [facility] [address] [place] [address] Dr. Shayne Roldan RBC 4.40 106/ul Normal 4.20-5.40 [facility] Comment on above: Performed By: #### M G, RENAL, URIC #### [facility] [address] [address] [address] Shayne Roldan WBC 8.8 103/ul Normal 4.0-11.0 [facility] Comment on above: Performed By: #### M G, RENAL, URIC #### [facility] [address] [address] [address] Shayne Roldan MAGNESIUMon 08-05-2022 Magnesium [Mass/Vol] 1.5 mg/dL Critically low 1.8-2.4 [facility] Comment on above: Performed By: #### M G, RENAL, URIC #### [facility] [address] [address] [address] Shayne Roldan RENAL FUNCTION PANELon 08-05 Albumin [Mass/Vol] 3.5 g/dL Normal 3.4-5.0 [facility] Comment on above: Performed By: #### M G, RENAL, URIC #### [facility] [address] [address] [address] Shayne Roldan Calcium [Mass/Vol] 8.4 mg/dL Critically low 8.5-10.1 [facility] Comment on above: Performed By: #### M G, RENAL, URIC #### [facility] [address] [address] [address] Shayne Roldan Chloride [Moles/Vol] 101 mmol/L Normal 98-107 [facility] Comment on above: Performed By: #### M G, RENAL, URIC #### [facility] [address] [address] [address] Shayne Roldan CO2 [Moles/Vol] 29.5 mmol/L Normal 21.0-32.0 [facility] Comment on above: Performed By: #### M G, RENAL, URIC #### [facility] [address] [address] [address] Shayne Roldan Creatinine [Mass/Vol] 1.04 mg/dL Critically high 0.55-1.02 [facility] Comment on above: Performed By: #### M G, RENAL, URIC #### [facility] [address] [place] [address] Dr. Shayne Roldan EGFR-AF FILIPINO >60 Normal >=60 [facility] Comment on above: Performed By: #### M G, RENAL, URIC #### [facility] [address] [place] [address] Dr. Shayne Roldan EGFR-NON AF FILIPINO 53 mL/min/1.73m2 Critically low >=60 [facility] Comment on above: Performed By: #### M G, RENAL, URIC #### [facility] [address] [place] [address] Dr. Shayne Roldan Glucose [Mass/Vol] 92 mg/dL Normal 74-106 [facility] Comment on above: Performed By: #### M G, RENAL, URIC #### [facility] [address] [place] [address] Dr. Shayne Roldan Phosphate [Mass/Vol] 2.4 mg/dL Critically low 2.6-4.7 [facility] Comment on above: Performed By: #### M G, RENAL, URIC #### [facility] [address] [place] [address] Dr. Shayne Roldan Potassium [Moles/Vol] 2.8 mmol/L Critically low 3.5-5.1 [facility] Comment on above: Performed By: #### M G, RENAL, URIC #### [facility] [address] [place] [address] Dr. Shayne Roldan Sodium [Moles/Vol] 137 mmol/L Normal 136-145 The [facility] Comment on above: Performed By: #### M G, RENAL, URIC #### [facility] [address] [place] [address] Dr. Shayne Roldan Urea nitrogen [Mass/Vol] 10.0 mg/dL Normal 7.0-18.0 [facility] Comment on above: Performed By: #### M G, RENAL, URIC #### [facility] [address] [place] [address] Dr. Shayne Roldan UA RANDOM W/MICROSCOPICon BACTERIA SMALL Abnormal NONE SEEN [facility] Comment on above: Performed By: #### U AMIC #### [facility] [address] [address] [address] Shayne Roldan Bilirubin Ql (U) Negative Normal NEGATIVE [facility] Comment on above: Performed By: #### U AMIC #### [facility] [address] [address] [address] Shayne Roldan CAST NONE SEEN Normal NONE SEEN [facility] Comment on above: Performed By: #### U AMIC #### [facility] [address] [address] [address] Shayne Roldan Clarity (U) CLEAR Normal CLEAR [facility] Comment on above: Performed By: #### U AMIC #### [facility] [address] [place] [address] Dr. Shayne Roldan Color (U) LT. YELLOW Normal YELLOW [facility] Comment on above: Performed By: #### U AMIC #### [facility] [address] [address] [address] Shayne Roldan Crystals LM Nom (Urine sed) NONE SEEN Normal NONE SEEN [facility] Comment on above: Performed By: #### U AMIC #### [facility] [address] [place] [address] Dr. Shayne Roldan Epithelial cells LM Ql (Urine sed) FEW Abnormal NONE SEEN /RARE [facility] Comment on above: Performed By: #### U AMIC #### [facility] [address] [address] [address] Shayne Roldan Glucose Ql (U) Negative Normal NEGATIVE [facility] Comment on above: Performed By: #### U AMIC #### [facility] [address] [address] [address] Shayne Roldan Hemoglobin Ql (U) Negative Normal NEGATIVE [facility] Comment on above: Performed By: #### U AMIC #### [facility] [address] [address] [address] Shayne Roldan Ketones Ql (U) Negative Normal NEGATIVE [facility] Comment on above: Performed By: #### U AMIC #### [facility] [address] [address] [address] Shayne Roldan LEUKOCYTES TRACE Abnormal NEGATIVE [facility] Comment on above: Performed By: #### U AMIC #### [facility] [address] [place] [address] Dr. Shayne Roldan MUCOUS NONE SEEN Normal NONE SEEN [facility] Comment on above: Performed By: #### U AMIC #### [facility] [address] [place] [address] Dr. Shayne Roldan Nitrite Ql (U) Negative Normal NEGATIVE [facility] Comment on above: Performed By: #### U AMIC #### [facility] [address] [place] [address] Dr. Shayne Roldan pH (U) 6.0 [pH] Normal 5-9 [facility] Comment on above: Performed By: #### U AMIC #### [facility] [address] [place] [address] Dr. Shayne Roldan RBC NONE SEEN Abnormal 0-2 [facility] Comment on above: Performed By: #### U AMIC #### [facility] [address] [place] [address] Dr. Shayne Roldan SPEC GRAVITY <=1.005 Abnormal 1.005-<=1.[address] [facility] Comment on above: Performed By: #### U AMIC #### [facility] [address] [place] [address] Dr. Shayne Roldan UA PROTEIN Negative Normal NEGATIVE/ TRACE [facility] Comment on above: Performed By: #### U AMIC #### [facility] [address] [place] [address] Dr. Shayne Roldan Urobilinogen Qn (U) 0.2 {Rogelio'U}/dL Normal 0.2 - 1. 0 [facility] Comment on above: Performed By: #### U AMIC #### [facility] [address] [place] [address] Dr. Shayne Roldan WBC 5-10 Abnormal NONE SEEN [facility] Comment on above: Performed By: #### U AMIC #### [facility] [address] [address] [address] Shayne Roldan URIC ACID SERUMon 08-05-2022 Urate [Mass/Vol] 6.5 mg/dL Critically high 2.6-6.0 [facility] Comment on above: Performed By: #### M G, RENAL, URIC #### [facility] [address] [place] [address] Dr. Shayne Roldan URINE T PROTEIN CREAT RATIOo n 08-05-2022 Protein (U) [Mass/Vol] 4.8 mg/dL Normal <=12.0 [facility] Comment on above: Performed By: #### U RTPCR #### [facility] [address] [place] [address] Dr. Shayne Roldan UR PROT CREAT RAT 0.09 Normal [facility] Comment on above: Performed By: #### U RTPCR #### [facility] [address] [place] [address] Dr. Shayne Roldan URINE CREAT 52.65 mg/dL Normal 20.00-300.00 [facility] Comment on above: Performed By: #### U RTPCR #### [facility] [address] [place] [address] Dr. Shayne Roldan VITAMIN D 25 OHon 08-05-2022 VIT D 25-OH 38.9 ng/mL Normal [facility] Comment on above: Performed By: #### M G, RENAL, URIC #### [facility] [address] [place] [address] Dr. Shayne Roldan VIT D RANGES SEE BELOW Normal [facility] Comment on above: Result Comment: <20 ng/mL Vit D deficient 20 - <30 ng/mL Vit D insufficient 30 - 100 ng/mL Vit D sufficient >100 ng/mL Potential Toxicity Performed By: #### M G, RENAL, URIC #### [facility] [address] [place] [address] Dr. Shayne Roldan IMMUNOGLOBULINS IGA/IGM/IGG/ IGE QUANTITAon 07-12-2022 Immunoglobulin A, Qn, Serum 295 mg/dL Normal 87-352 [facility] Comment on above: Result Comment: Perf ormed at: CB Performed By: #### M G, RENAL, URIC #### [facility] [address] [address] [address] Shayne Roldan Immunoglobulin E, Total 32 IU/mL Normal 6-495 [facility] Comment on above: Result Comment: Perf ormed at: BN Performed By: #### M G, RENAL, URIC #### [facility] [address] [address] [address] Shayne Roldan Immunoglobulin G, Qn, Serum 729 mg/dL Normal 586-1602 [facility] Comment on above: Result Comment: Perf ormed at: CB Performed By: #### M G, RENAL, URIC #### [facility] [address] [place] [address] Dr. Shayne Roldan Immunoglobulin M, Qn, Serum 75 mg/dL Normal 26-217 [facility] Comment on above: Result Comment: Perf ormed at: CB Performed By: #### M G, RENAL, URIC #### [facility] [address] [place] [address] Dr. Shayne Roldan CBC AUTO DIFFon 07-05-2022 BASO # 0.1 103/ul Normal 0.0-0.1 [facility] Comment on above: Performed By: #### M G, RENAL, URIC #### [facility] [address] [place] [address] Dr. Shayne Roldan Basophils/100 WBC (Bld) 0.7 % Normal 0.2-2.0 [facility] Comment on above: Performed By: #### M G, RENAL, URIC #### [facility] [address] [address] [address] Shayne Roldan EO # 0.4 103/ul Normal 0.0-0.7 [facility] Comment on above: Performed By: #### M G, RENAL, URIC #### [facility] [address] [place] [address] Dr. Shayne Roldan Eosinophils/100 WBC (Bld) 4.4 % Normal 0.9-7.0 [facility] Comment on above: Performed By: #### M G, RENAL, URIC #### [facility] [address] [place] [address] Dr. Shayne Roldan Erythrocyte distribution width (RBC) [Ratio] 12.6 % Normal 11.0-15.0 [facility] Comment on above: Performed By: #### M G, RENAL, URIC #### [facility] [address] [place] [address] Dr. Shayne Roldan Hematocrit (Bld) [Volume fraction] 40.2 % Normal 36.0-48.0 [facility] Comment on above: Performed By: #### M G, RENAL, URIC #### [facility] [address] [place] [address] Dr. Shayne Roldan Hemoglobin (Bld) [Mass/Vol] 13.6 g/dL Normal 12.0-16.0 [facility] Comment on above: Performed By: #### M G, RENAL, URIC #### [facility] [address] [place] [address] Dr. Shayne Roldan IG # 0.07 10e3/ul Critically high 0.00-0.03 [facility] Comment on above: Performed By: #### M G, RENAL, URIC #### [facility] [address] [place] [address] Dr. Shayne Roldan IG % 0.8 % Critically high 0.0-0.[address] [facility] Comment on above: Performed By: #### M G, RENAL, URIC #### [facility] [address] [place] [address] Dr. Shayne Roldan LYMPH # 2.3 103/ul Normal 1.2-3.8 [facility] Comment on above: Performed By: #### M G, RENAL, URIC #### [facility] [address] [place] [address] Dr. Shayne Roldan Lymphocytes/100 WBC (Bld) 24.7 % Normal 20.5-60.0 [facility] Comment on above: Performed By: #### M G, RENAL, URIC #### [facility] [address] [place] [address] Dr. Shayne Roldan MANUAL DIFF REQ NO Normal The [facility] Comment on above: Performed By: #### M G, RENAL, URIC #### [facility] [address] [place] [address] Dr. Shayne Roldan MCH (RBC) [Entitic mass] 30.7 pg Normal 26.7-34.0 [facility] Comment on above: Performed By: #### M G, RENAL, URIC #### [facility] [address] [place] [address] Dr. Shayne Roldan MCHC (RBC) [Mass/Vol] 33.8 g/dL Normal 29.9-35.2 [facility] Comment on above: Performed By: #### M G, RENAL, URIC #### [facility] [address] [place] [address] Dr. Shayne Roldan MCV (RBC) [Entitic vol] 90.7 fL Normal 81.0-99.0 [facility] Comment on above: Performed By: #### M G, RENAL, URIC #### [facility] [address] [place] [address] Dr. Shayne Roldan MONO # 0.7 103/ul Normal 0.3-0.8 [facility] Comment on above: Performed By: #### M G, RENAL, URIC #### [facility] [address] [place] [address] Dr. Shayne Roldan Monocytes/100 WBC (Bld) 7.7 % Normal 1.7-12.0 [facility] Comment on above: Performed By: #### M G, RENAL, URIC #### [facility] [address] [place] [address] Dr. Shayne Roldan NEUT # 5.7 103/ul Normal 1.4-6.5 [facility] Comment on above: Performed By: #### M G, RENAL, URIC #### [facility] [address] [place] [address] Dr. Shayne Roldan Neutrophils/100 WBC (Bld) 61.7 % Normal 43.0-75.0 [facility] Comment on above: Performed By: #### M G, RENAL, URIC #### [facility] [address] [place], [place] [address] Dr. Shayne Roldan Platelet mean volume (Bld) [Entitic vol] 8.8 fL Critically low 9.5-13.5 [facility] Comment on above: Performed By: #### M G, RENAL, URIC #### [facility] [address] [place], [place] [address] Dr. Shayne Roldan PLT 279 103/ul Normal 150-450 [facility] Comment on above: Performed By: #### M G, RENAL, URIC #### [facility] [address] [place], [place] [address] Dr. Shayne Roldan RBC 4.43 106/ul Normal 4.20-5.40 [facility] Comment on above: Performed By: #### M G, RENAL, URIC #### [facility] [address] [place], [place] [address] Dr. Shayne Roldan WBC 9.1 103/ul Normal 4.0-11.0 [facility] Comment on above: Performed By: #### M G, RENAL, URIC #### [facility] [address] [place], [place] [address] Dr. Shayne Roldan Covid-19 PCR ([facility])on SARS-CoV-2 (COVID-19) RNA KAYLEE+probe Ql (Unsp spec) Not detected Normal NOT DETECTED [facility] Comment on above: Result Comment: This test is not yet approved or cleared by the [place] FDA. When there are no FDA-approved or cleared tests available, and other criteria are met, FDA can make tests available under an emergency access mechanism called an Emergency Use Authorization (EUA). The EUA for this test is supported by the [place] of Health and Human Service's (HHS's) declaration [...] By: #### M G, RENAL, URIC #### [facility] [address] [place], [place] [address] Dr. Shayne Roldan XR CHEST 2 Von [...] NARDA LONDONO Date: 2022-06-08 19:58 Normal [facility] Covid-19 PCR ([facility])on SARS-CoV-2 (COVID-19) RNA KAYLEE+probe Ql (Unsp spec) Not detected Normal NOT DETECTED [facility] Comment on above: Result Comment: This test is not yet approved or cleared by the [place] FDA. When there are no FDA-approved or cleared tests available, and other criteria are met, FDA can make tests available under an emergency access mechanism called an Emergency Use Authorization (EUA). The EUA for this test is supported by the [place] of Health and Human Service's (HHS's) declaration [...] SARS-CoV-2. Performed By: #### C VDTBH #### [facility] [address] [place], [place] [address] Dr. Shayne Roldan DEXA AXIALon 03-01-2022 DEXA AXIAL [facility] Department of Radiology [address] [place] [address] Patient Name: DIANA CHAMPION : 1955 Sex: F Age: Race: White Pt. Location: Patient Status: D Ordered Date: 02/24/2022 1:25:00 PM Completed Date: 03/01/2022 09:46 AM Requesting Provider: CINDA ANTONIO Attending Provider: Report Copy To: Signs & Symptoms: Z78.0 Asymptomatic menopausal state I10 History: [place] Comments: Exam: DEXA AXIAL DEXA AXIAL 03/01/2022 [...] characteristics. Electronically signed: Luzma Fernandez. Transcribed by: [email or web address], User Resident: Electronically Signed by: LUZMA FERNANDEZ @ 03/02/2022 01:07 PM Normal [facility] SCOLIOSIS 2 [facility] 02-24-2022 SCOLIOSIS 2 [facility] Department of Radiology [address] [place] [id number] Patient Name: DIANA CHAMPION : 1955 Sex: F Age: Race: White Pt. Location: Patient Status: D Ordered Date: 02/24/2022 1:25:00 PM Completed Date: 02/24/2022 01:44 PM Requesting Provider: CINDA ANTONIO Attending Provider: Report Copy To: Signs & Symptoms: M43.10 Spondylolisthesis, site unspecified I10 History: Comments: Views (X-RAY, SCOLIOSIS): PA, Lateral evaluate Exam: SCOLIOSIS 2 [facility] Scoliosis. Worsening pain. Frontal and lateral thoracolumbar spine IMPRESSION: 1. Diffuse disc disease and facet arthritis. Right convex mid lumbar curvature measuring 16 degrees. Interbody fusion hardware lower lumbar spine. Electronically signed: Hugo Lynn. Transcribed by: [email or web address], User Resident: Electronically Signed by: HUGO LYNN @ 02/26/2022 11:07 AM Normal [facility] Comment on above: Order Comment: Views (X-RAY, SCOLIOSIS): PA, Lateral evaluate CT LUMBAR SPINE W CONTRASTon 01-24-2022 CT LUMBAR SPINE W CONTRAST [facility] Department of Radiology [address] [place] [id number] Patient Name: DIANA CHAMPION : 1955 [...] L1-2. Electronically signed: Gaurang Lawrence. Transcribed by: [email or web address], User Resident: Electronically Signed by: GAURANG LAWRENCE @ 01/26/2022 08:58 AM Normal [facility] Comment on above: Order Comment: , CT MYELOGRAM>PAPER WORK IN CHART LUMBAR MYELOGRAMon 2 LUMBAR MYELOGRAM [facility] Department of Radiology [address] [place] [id number] Patient Name: DIANA CHAMPION : 1955 Sex: F Age: Race: White Pt. Location: Patient Status: O Ordered Date: 01/09/2022 9:00:00 AM Completed Date: 01/24/2022 02:37 PM Requesting Provider: JOO BRAVO Attending Provider: JOO BRAVO Report Copy To: UNKNOWN, PHYSICIAN Signs & Symptoms: M54.16 Radiculopathy, lumbar region I10 History: Jessica Is patient on thinners? 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 Consent was obtained. Timeout: [place] protocol timeout verification performed. PROCEDURE: Estimated blood [...] report. Electronically signed: Greg Marlow. Transcribed by: [email or web address], User Resident: DEBBIE JI Electronically Signed by: GREG MARLOW @ 01/24/2022 04:07 PM I personally read this/these film(s) with this resident Normal [facility] Comment on above: Order Comment: , CT MYELOGRAM> PAPER WORK SCANNED IN CHART , CT MYELOGRAM> PAPER WORK SCANNED IN CHART , , , Ordering Provider - JOO BRAVO MD , HIP LEFT 1 OR 2 VWS WITH PEL VISon 01-06-2022 HIP LEFT 1 OR 2 VWS WITH PELVIS [facility] Department of Radiology [address] [place] [id number] Patient Name: DIANA CHAMPION : 1955 Sex: F Age: Race: White Pt. Location: Patient Status: D Ordered Date: 12/21/2021 10:45:00 AM Completed Date: 01/06/2022 01:24 PM Requesting Provider: JOO BRAVO Attending Provider: JOO BRAVO Report Copy To: Signs & Symptoms: Z96.642 Presence of left artificial hip joint I10 History: [place] Comments: Evaluate Exam: HIP LEFT 1 OR 2 VWS WITH PELVIS HIP LEFT 1 OR 2 VWS WITH PELVIS HISTORY: Hip replacement, follow-up. COMPARISON: None. IMPRESSION: 1. Redemonstrated left hip prosthesis without visible complication. 2. Advanced right hip arthritis without significant change with advanced joint space narrowing. Unchanged lumbosacral fusion hardware. Electronically signed: Joe Matthew. Transcribed by: [email or web address], User Resident: Electronically Signed by: JOE MATTHEW @ 01/09/2022 04:45 PM Normal [facility] Comment on above: Order Comment: Evalu ate Vital Signs Date Time Vital Sign Value Performing Clinician Facility 03-14-2024 10:30-0400 Body height 165.1 cm Steph Josie Work Phone: [phone] [place] [address] 03-14-2024 10:30-0400 Body mass index (BMI) [Ratio] 39 kg/m2 Steph Josie Work Phone: [phone] [place] [address] 03-14-2024 10:30-0400 Body temperature 97.4 [degF] Steph Galindo Work Phone: [facility] 03-14-2024 10:30-0400 Body weight 106.36 kg Steph Galindo Work Phone: [facility] 03-14-2024 10:30-0400 Diastolic blood pressure 80 mm[Hg] Steph Josie Work Phone: [facility] 03-14-2024 10:30-0400 Heart rate 77 /min Steph Josie Work Phone: [facility] 03-14-2024 10:30-0400 Inhaled oxygen flow rate 3 L/min Steph Josie Work Phone: [facility] 03-14-2024 10:30-0400 Respiratory rate 20 /min Steph Collier Work Phone: [facility] 03-14-2024 10:30-0400 SaO2% (BldA) [Mass fraction] 92 % Steph Amira Work Phone: [facility] 03-14-2024 10:30-0400 Systolic blood pressure 120 mm[Hg] Steph Collier Work Phone: [facility] 08-17-2023 09:20-0400 Body height 165.1 cm Herberth Joana Other [facility] Other 08-17-2023 09:20-0400 Body mass index (BMI) [Ratio] 38.1 kg/m2 Herberth Joana Other [facility] Other 08-17-2023 09:20-0400 Body temperature 98.8 [degF] Herberth Joana Other [facility] Other 08-17-2023 09:20-0400 Body weight 103.87 kg Herberth Joana Other [facility] Other 08-17-2023 09:20-0400 Diastolic blood pressure 85 mm[Hg] Herberth Joana Other [facility] Other 08-17-2023 09:20-0400 Respiratory rate 18 /min Herberth Joana Other [facility] Other 08-17-2023 09:20-0400 SaO2% (BldA) [Mass fraction] 94 % Herberth Joana Other [facility] Other 08-17-2023 09:20-0400 Systolic blood pressure 151 mm[Hg] Herberth Joana Other [facility] Other 03-02-2023 10:00-0400 Body height 165.1 cm Herberth Joana Other [facility] Other 03-02-2023 10:00-0400 Body mass index (BMI) [Ratio] 37.29 kg/m2 Herberth Joana Other [facility] Other 03-02-2023 10:00-0400 Body temperature 98.9 [degF] Herberth Joana Other [facility] Other 03-02-2023 10:00-0400 Body weight 101.65 kg Herberth Joana Other [facility] Other 03-02-2023 10:00-0400 Diastolic blood pressure 76 mm[Hg] Herberth Joana Other [facility] Other 03-02-2023 10:00-0400 Respiratory rate 20 /min Herberth Joana Other [facility] Other 03-02-2023 10:00-0400 SaO2% (BldA) [Mass fraction] 96 % Herberth Joana Other [facility] Other 03-02-2023 10:00-0400 Systolic blood pressure 136 mm[Hg] Herberth Joana Other [facility] Other 12-08-2022 09:30-0500 Diastolic blood pressure 59 mm[Hg] MD Shaikh Ohara Work Phone: [facility] 12-08-2022 09:30-0500 Heart rate 55 /min MD Shaikh Ohara Work Phone: [facility] 12-08-2022 09:30-0500 Respiratory rate 16 /min MD Shaikh Ohara Work Phone: [facility] 12-08-2022 09:30-0500 SaO2% (BldA) [Mass fraction] 96 % MD Shaikh Ohara Work Phone: [facility] 12-08-2022 09:30-0500 Systolic blood pressure 112 mm[Hg] MD Shaikh Ohara Work Phone: [facility] 12-08-2022 06:54-0500 Body height 162.56 cm MD Shaikh Ohara Work Phone: [facility] 12-08-2022 06:54-0500 Body temperature 98.2 [degF] MD Shaikh Ohara Work Phone: [facility] 12-08-2022 06:54-0500 Body weight 104.32 kg MD Shaikh Ohara Work Phone: [facility] 08-09-2022 11:00-0400 Body height 165.1 cm Herberth Joana Other [facility] Other 08-09-2022 11:00-0400 Body mass index (BMI) [Ratio] 37.87 kg/m2 Herberth Joana Other [facility] Other 08-09-2022 11:00-0400 Body temperature 97.2 [degF] Herberth Joana Other [facility] Other 08-09-2022 11:00-0400 Body weight 103.24 kg Herberth Joana Other [facility] Other 08-09-2022 11:00-0400 Diastolic blood pressure 88 mm[Hg] Herberth Joana Other [facility] Other 08-09-2022 11:00-0400 Respiratory rate 20 /min Herberth Joana Other [facility] Other 08-09-2022 11:00-0400 SaO2% (BldA) [Mass fraction] 95 % Herberth Joana Other [facility] Other 08-09-2022 11:00-0400 Systolic blood pressure 133 mm[Hg] Herberth Joana Other [facility] Other 11-17-2021 10:40-0500 Body height 165.1 cm Herberth Joana Other [facility] Other 11-17-2021 10:40-0500 Body mass index (BMI) [Ratio] 37.97 kg/m2 Herberth Joana Other [facility] Other 11-17-2021 10:40-0500 Body temperature 97.8 [degF] Herberth Joana Other [facility] Other 11-17-2021 10:40-0500 Body weight 103.51 kg Herberth Joana Other [facility] Other 11-17-2021 10:40-0500 Diastolic blood pressure 70 mm[Hg] Herberth Joana Other [facility] Other 11-17-2021 10:40-0500 Respiratory rate 18 /min Herberth Joana Other [facility] Other 11-17-2021 10:40-0500 SaO2% (BldA) [Mass fraction] 94 % Herberth Joana Other [facility] Other 11-17-2021 10:40-0500 Systolic blood pressure 130 mm[Hg] Herberth Rivera Other [facility] Other 08-30-2021 13:15-0400 Body height 165.1 cm Rena Ginty Other [facility] Other 08-30-2021 13:15-0400 Body mass index (BMI) [Ratio] 36.61 kg/m2 Rena Ginty Other [facility] Other 08-30-2021 13:15-0400 Body temperature 98.7 [degF] Rena Ginty Other [facility] Other 08-30-2021 13:15-0400 Body weight 99.79 kg Rena Ginty Other [facility] Other 08-30-2021 13:15-0400 SaO2% (BldA) [Mass fraction] 90 % Rena Ginty Other [facility] Other Encounters Encounter Date Encounter Type Care Provider Facility Start: 05-13-2024 End: 05-13-2024 ambulatory [facility] Start: 05-06-2024 End: 05-06-2024 ambulatory Jayshree Vargas [...] End: 03-14-2024 ambulatory Steph Collier Work Phone: [facility] Work Phone: Start: 03-14-2024 End: 03-14-2024 Patient encounter procedure Steph Galindo Work Phone: [facility] Work Phone: Start: 03-06-2024 Non-patient / Non-visit Steph Amira Work Phone[facility] Work Phone: Start: 02-26-2024 End: [...] End: 10-09-2023 ambulatory Jayshree Vargas MD Facility:[facility] [place] Start: 10-04-2023 End: 10-04-2023 ambulatory SHAIKH LEV Not Available Start: 09-07-2023 End: 09-07-2023 ambulatory Herberth Joana Other [facility] Other Start: 09-07-2023 Telephone encounter Herberth Joana [facility] Start: 08-28-2023 End: 08-28-2023 ambulatory Herberth Joana Other [facility] Other Start: 08-28-2023 Telephone encounter Herberth Joana [facility] Start: 08-21-2023 End: 08-21-2023 ambulatory Jayshree Vargas MD Facility: [place] Start: 08-17-2023 End: 08-17-2023 ambulatory Herberth Joana Other [facility] Other Start: 08-17-2023 Office outpatient visit 25 minutes Herberth Joana [facility] Start: 04-04-2023 End: 04-04-2023 ambulatory SHAIKH Dimitry OHARA Facility:[facility] Start: 03-24-2023 End: 03-25-[address] STEPH GRANADOS Facility:[facility] Start: 03-02-2023 End: 03-02-2023 ambulatory Herberth Joana Other [facility] Other Start: 03-02-2023 Office outpatient visit 25 minutes Herberth Joana [facility] Start: 02-25-2023 End: 02-26-2023 ambulatory HERBERTH JOANA Facility:[facility] Start: 02-22-2023 End: 02-23-2023 ambulatory BO MCCLAIN . Facility:[facility] Start: 12-15-2022 End: 12-16-[address] JACK HALL . Facility:[facility] Start: 12-08-2022 End: 12-08-2022 ambulatory Shaikh Lev Facility:[facility] Start: 12-08-2022 End: 12-08-2022 Admission to same day surgery center MD Shaikh Ohara Work Phone: [facility] Work Phone: Start: 12-08-2022 End: 12-08-2022 ambulatory MD Shaikh Ohara Work Phone: [facility] Work Phone: Start: 11-11-2022 End: 11-11-[address] JACK HALL . Facility:[facility] Start: 11-09-2022 End: 11-09-2022 ambulatory Aziz Bakhous Other [facility] Other Start: 11-09-2022 Telephone encounter Azkatherine Gonzalezs [facility] Start: 08-19-2022 End: 08-20-2022 ambulatory HERBERTH JOANA Facility:[facility] Start: 08-09-2022 End: 08-09-2022 ambulatory Herberth Joana Other [facility] Other Start: 08-09-2022 Office outpatient visit 10 minutes Herberth Joana [facility] Start: 08-09-2022 Telephone encounter Herberth Joana [facility] Start: 08-05-2022 Telephone encounter Herberth Joana [facility] Start: 08-05-2022 End: 08-06-2022 ambulatory HERBERTH JOANA [employer] Other Start: 07-08-2022 End: 07-08-2022 ambulatory Gato Domingo Other [facility] Other Start: 07-08-2022 Telephone encounter Gato Cesar ck [facility] Start: 07-05-2022 End: 07-06-2022 ambulatory SHAIKH Dimitry OHARA Facility:[facility] Start: 06-08-2022 End: 06-09-2022 ambulatory SHAIKH Dimitry OHARA Facility:[facility] Start: 06-07-2022 End: 06-07-2022 ambulatory SHAIKH Dimitry OHARA Facility:[facility] Start: 01-24-2022 End: 01-25-2022 ambulatory PHYSICIAN UNKNOWN Facility:[facility] Start: 11-17-2021 End: 11-17-2021 ambulatory Herberth Joana Other [facility] Other Start: 11-17-2021 Office outpatient visit 15 minutes Herberth Joana [facility] Start: 08-30-2021 Office outpatient visit 15 minutes Rena Ginty [facility] Start: 09-11-2020 End: 09-11-2020 Chart abstracting Miguelito Buck Work Phone: Hematology/Oncology Start: 09-11-2020 End: 09-11-2020 Patient encounter procedure External Provider [facility] Start: 09-11-2020 Results Only External Provider Exter nal-[facility] Start: 09-30-2019 End: 09-30-2019 Patient encounter procedure [facility] [place] Start: 07-07-2017 End: 07-07-2017 Admission to day surgery [facility] Start: 05-24-2004 Evaluation and management of inpatient [facility] [place] Start: 04-26-2004 Evaluation and management of inpatient [facility] [place] Procedures Date Procedure Procedure Detail Performing Clinician Start: 12-08-2022 Colonoscopy MD Shaikh Ohara Work Phone: Start: 09-11-2020 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 Provider Start: 09-11-2020 EXTERNAL LAB External P rovider Start: 09-11-2020 EXTERNAL PROCEDURE Exte rnal Provider Start: 09-30-2019 Ultrasonography of b ilateral kidneys Steph Collier Plan of Treatment Date Care Activity Detail Author Start: 12-08-2022 [facility] Start: 07-07-2020 Influenza vaccination INFLUENZA (#1) [facility] Start: 2006 SHINGRIX VACCINE (1 of 2) SHINGRIX VACCINE (1 of 2) [facility] Start: 2006 Tuberculosis screening COLORECTAL CANCER SCREENING,SEE MODIFIER [facility] Start: 2001 DIABETES SCREEN DIABETES SCREEN [facility] Start: 2001 LIPID SCREEN LIPID SCREEN [facility] Start: 1996 Mammography MAMMOGRAM [facility] Start: 1986 HPV TESTING HPV TESTING [facility] Start: 1977 PAP TESTING PAP TESTING [facility] Start: 1975 Urine microalbumin profile DTAP,TDAP,TD (1 - Tdap) [facility] Start: 1974 HEPATITIS C SCREENING HEPATITIS C SCREENING [facility] Start: 1974 HIV SCREENING HIV SCREENING [facility] Patient Education Colon Polypect shahram Hemorrhoids (DC) Diverticulosis (DC) [facility] Phone[facility] Immun[facility] Immunization Date Immunization Notes Care Provider Henrietta charles 07-18-2018 Depo-Medrol 40 mg Rena Gint y Other [facility] Other 01-31-2018 Depo-Medrol 40 mg Rena Gint y Other [facility] Other 08-09-2017 influenza virus vaccine, unspecified formulation Steph Collier Work Phone: [facility] 08-09-2017 influenza, seasonal, injectable, preservative free Rena Ginty Other [facility] Other Payers Date Payer Category Payer Unknown 2022 Self-pay [id number] 2021 Medicare [id number] 2020 Medicaid [id number] 2019 Medicaid MEDICAID [facility] MEDICAID [id number] 2019-Present Medicaid [id number] 2016 Medicare MEDICARE MEDICAR E A AND B [id number] 2016-Present [place] Medicare [id number] [id number] 1959 Unknown [id number] 1956 Unknown [id number] 2.16.840.1.212958.3.579.2.647 1956 Unknown [id number] 2.16.840.1.924749.3.579.2.593 1956 Unknown [id number] 2.16.840.1.788592.3.579.2.593 1956 Unknown [id number] 2.16.840.1.680429.3.579.2.593 1956 Unknown [id number] 2.16.840.1.357711.3.579.2.593 1956 Unknown [id number] 2.16.840.1.598252.3.579.2.593 1956 Unknown [id number] 2.16.840.1.244266.3.579.2.593 1956 Unknown [id number] 2.16.840.1.498002.3.579.2.593 1956 Unknown [id number] 2.16.840.1.234464.3.579.2.593 1956 Unknown [id number] 2.16.840.1.823074.3.579.2.593 1956 Unknown [id number] 2.16.840.1.696702.3.579.2.593 1956 Unknown [id number] 2.16.840.1.505934.3.579.2.593 1956 Unknown [id number] 2.16.840.1.863287.3.579.2.1259 1956 Unknown [id number] 2.16.840.1.691649.3.579.2.1258 1956 Unknown [id number] 2.16.840.1.980115.3.579.2.1258 1956 Unknown [id number] 2.16.840.1.317750.3.579.2.1258 1956 Unknown [id number] 2.16.840.1.664004.3.579.2.1258 1956 Unknown [id number] 2.16.840.1.676189.3.579.2.1258 1956 Unknown [id number] 2.16.840.1.475777.3.579.2.1258 1956 Unknown [id number] 2.16.840.1.010200.3.579.2.1258 1956 Unknown [id number] 2.16.840.1.968535.3.579.2.1258 1956 Unknown [id number] 2.16.840.1.753100.3.579.2.1258 1956 Unknown [id number] 2.16.840.1.840409.3.579.2.1258 1956 Unknown [id number] 2.16.840.1.890904.3.579.2. 1956 Unknown [id number] 2.16.840.1.157108.3.579.2. 1956 Unknown [id number] 2.16.840.1.094962.3.579.2. 1956 Unknown [id number] 2.16.840.1.332573.3.579.2. 1956 Unknown [id number] 2.16.840.1.616629.3.579.2. 1956 Unknown [id number] 2.16.840.1.307332.3.579.2.196 1956 Unknown [id number] 2.16.840.1.917541.3.579.2.196 Medicare [id number] Unknown HCAP/HFA/FAP Active [id number] Unknown [id number] 2.16.840.1.070129.3.579.2.531 Social History Date Type Detail Facility Tobacco smoking stat [facility] Unknown if ever smoked [facility] Start: 1955 Sex Assigned At Female F [facility] Start: 09-11-2020 End: 03-14-2024 Tobacco smoking status OKIS Never smoker [facility] Start: 09-11-2020 Tobacco use and exposure Never used [facility] Start: 09-11-2020 Alcohol intake Lifetime non-d my (finding) [facility] Start: 09-11-2020 History SDOH Alcohol Frequency 1 [facility] Sex Assigned At Not on file [facility] Sex Assigned At Sex Assigned At [facility] Other Goals Date Patient Goal Desired Activity /State Clinical Notes 08-30-2021 to 05-13-2024 Note Date & Type Note Facility 05-13-2024 Note [facility] Cardiology Clinic Note Chief Complaint: Patient here for 1 year follow up CAD and hypertension. She was recently discharged from [facility] for Covid-19. She says hydrochlorothiazide was [...] breath since then. 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 Her chest pain is noncardiac. [...] a past medical history of Asthma, Cancer ([facility]), COPD (chronic obstructive pulmonary disease) ([facility]), Coronary artery disease, GERD (gastroesophageal reflux disease), [...] mouth every other day., Disp: , Rfl: [id number] 100-62.5-25 mcg blister with device, , Disp: [...] Examination: GENERAL: a (more content not included)... [facility] 09-07-2023 Evaluation note Encounter Date Diagnosis Assessment Notes Sep, Hypomagnesemia (ICD-10 - E83.42) [facility] Other 10-23-2023 Evaluation note* Encounter Date Diagnosis Assessment Notes Treatment Notes Treatment Clinical Notes Aug, Nico garsia kid I-IV (ICD-10 - I12.9) [facility] Other 10-12-2023 Evaluation note* Encounter Date Diagnosis [...] PPI induced GI losses. Continue oral Magnesium [facility] Other 05-19-2023 NotePROCEDURE: XR HIP RT 2 3V W PELVIS HISTORY: Pain in right hip joint , chronic COMPARISON: XR L-spine 02/26/2019, XR left hip with pelvis 03/11/2017 FINDINGS: BONES:Complete loss of the right hip joint space with [id number] articulation, subchondral sclerosis and cysts, and large periarticular degenerative osteophytes. No fracture or dislocation. Left hip replacement. Mechanical fusion of L5-S1 and moderate dextroscoliosis of lumbar spine. SOFT TISSUES:No visible soft tissue swelling. EFFUSION:None visible. OTHER: Negative. IMPRESSION: 1. Marked degenerative joint disease of the right hip; progressed since prior study. 2. Stable surgical changes. Electronically authenticated by: STEPH GRANADOS Date: 2023-03-24 12:55[facility]04-27-2023 Evaluation note* Encounter Date Diagnosis Assessment [...] PPI induced GI losses. Continue oral Magnesium [facility]* Encounter Date Diagnosis Assessment Notes Treatment Notes Treatment Clinical Notes Nov, Hypokalemia (ICD-10 - E87.6) Nov, Hypomagnesemia (ICD-10 - E83.42) [facility] Other 10-04-2022 Evaluation note* Encounter Date Diagnosis [...] office does not accept her new insurance. [facility] Other 09-02-2022 Evaluation note* Encounter Date Diagnosis Assessment Notes Treatment Notes Treatment Clinical Notes Jul, History of colon cancer (ICD-10 - Z85.038) [facility] Other 01-12-2022 Evaluation note* Encounter Date Diagnosis [...] potassium wasting. I have prescribed oral potassium. [facility] Other 10-25-2021 Evaluation note* Encounter Date Diagnosis [...] Patient care instructions given in writting by [facility] Care At Home document [facility] [employer] Other Evaluation noteNo InformationNortNew [facility] [employer] Other Evaluation note* Diagnosis Onset Date Resolution Status History of colon cancer acut e [facility] Work Phone: Evaluation note* Diagnosis Onset Date Resolution Status Hypokalemia acute Hypomagnesemia acute Stage 3 chronic kidney disease acute COVID noneactive Pneumonia noneactive [facility] Work Phone: History general Narrative [...] IN 08/2019 Hospitalization History HIP REVISION 03/2020 [facility] Other History general Narrative - Reported* Type [...] Hospitalization History COVID X 2 WEEKS 04/2023 [facility] Other Hospital Discharge instructions Additional Instructions DISCHARGE [...] if you have any problems. -Office number [phone] Work Phone: Advance Directives No Advanced [...] or prosecute any alcohol or drug abuse patient.[facility] the event this information is protected by the Federal Confidentiality of Alcohol and Drug Abuse Patient Records regulations: The Federal rules restrict any use of the information to criminally investigate or prosecute any alcohol or drug abuse patient.[facility] the event this information is protected by the Federal Confidentiality of Alcohol and Drug Abuse Patient Records regulations: The Federal rules restrict any use of the information to criminally investigate or prosecute any alcohol or drug abuse patient.[facility] the event this information is protected by the Federal Confidentiality of Alcohol and Drug Abuse Patient Records regulations: The Federal rules restrict any use of the information to criminally investigate or prosecute any alcohol or drug abuse patient.[facility] INFORMATION SOURCE (unrecogn ized section and content) DATE CREATED AUTHOR 03/03/2022 [facility] DATE CREATED AUTHOR AUTHOR'S ORGANIZ ATION 04/17/2023 [facility] DATE CREATED AUTHOR AUTHOR'S ORGANIZ ATION 06/07/2023 [facility] DATE CREATED AUTHOR AUTHOR'S ORGANIZ ATION 04/18/2024 [facility] DATE CREATED AUTHOR AUTHOR'S ORGANIZ ATION 05/09/2024 [facility] DATE CREATED AUTHOR AUTHOR'S ORGANIZ ATION 05/13/2024 [facility] REASON FOR VISIT (unrecogniz ed section [...] BE BASED ON THE PRIMARY CLINICAL RECORDS. [employer] [facility]. provides no warranty or guarantee of the accuracy or completeness of information in this document.
--- NOTE | 2024-06-06 18:31 | ECG_ITS ---
[facility] Test Date: 2024-06-06 Pat Name: JHONATAN MONTOYA Department: Room: - Gender: Female Band Booker: : 1955 Requested By: SHAIKH LUCITA Order Number: [id number] Reading MD: MINERVA GERBER Measurements Intervals [place] Rate: 66 P: 50 OK: 146 QRS: 19 QRSD: 110 T: 51 QT: 422 QTc: 435 Interpretive Statements 1100 Sinus rhythm 9110 normal ECG Compared to ECG 02/03/2024 09:00:17 ST (T wave) deviation no longer present Electronically Signed On 06-06-2024 22:03:36 EDT by MINERVA GERBER
--- NOTE | 2024-06-06 18:31 | XR_ITS ---
[address] [address] Patient Name: JHONATAN MONTOYA MRN: [id number] date: 1955 Sex: F Assigned Patient Location: ER Current Patient Location: ED.MAIN Accession/Order Number: [id number] Exam Date: 06/06/2024 18:56 Report Date: 06/06/2024 20:12 At the request of: OCTAVIO MARLOW Procedure: XR chest 2V EXAMINATION: XR chest 2V, , 06/06/2024 6:56 PM EDT INDICATION: cough HISTORY: Ordering Provider Reason for Exam: cough Technologist Note: Additional: COMPARISON: None. TECHNIQUE: Chest x-ray: Two views. FINDINGS: No pneumothorax, pleural effusion or focal airspace consolidation. Stable mild enlarged cardiac silhouette. Bony thorax is unremarkable. XR/XR chest 2V IMPRESSION: No acute cardiopulmonary process. Electronically authenticated by: ILIANA JONES Date: 06/06/2024 20:12
[2024-06-06 18:46] LABS: Basophils Absolute Auto 0.1 10^3/uL (0.0-0.1); Basophils Percent Auto 0.7 % (0.2-2.0); Eosinophils Absolute Auto 0.3 10^3/uL (0.0-0.7); Eosinophils Percent Auto 3.4 % (0.9-7.0); Hematocrit 38.4 % (36.0-48.0); Hemoglobin 12.3 g/dL (12.0-16.0); Immature Granulocytes Abs Auto 0.07 10^3/uL (0.00-0.03); Immature Granulocytes Pct Auto 0.9 % (0.0-0.5); Lymphocytes Absolute Auto 1.8 10^3/uL (1.2-3.8); Lymphocytes Percent Auto 23.6 % (20.5-60.0); Mean Corpuscular Hemoglobin 30.3 pg (26.7-34.0); Mean Corpuscular Volume 94.6 fL (81.0-99.0); Monocytes Absolute Auto 0.5 10^3/uL (0.3-0.8); Monocytes Percent Auto 6.6 % (1.7-12.0); Neutrophils Percent Auto 64.8 % (43.0-75.0); Platelet Count 263 10^3/uL (150-450); Red Blood Count 4.06 10^6/uL (4.20-5.40); Red Cell Distribution Width 13.3 % (11.0-15.0); White Blood Count 7.6 10^3/uL (4.0-11.0)
[2024-06-06] MEDS: METHYLPREDNISOLONE SOD SUCC PF 125 MG/2 ML VIAL IVP (18:47)
[2024-06-06] MEDS: IPRATROPIUM/ALBUTEROL SULFATE 3 ML AMPUL.NEB IH (18:59)
--- NOTE | 2024-06-06 19:01 | PC.NURSE ---
Pt wears oxygen all the time at 3lpm nasal canula
[2024-06-06 19:06] LABS: Anion Gap 8.2; BUN Creatinine Ratio 7.7; Calcium 8.5 mg/dL (8.5-10.1); Carbon Dioxide 33.3 mmol/L (21.0-32.0); Chloride 102 mmol/L (98-107); Estimated GFR (African America 56 (>=60); Estimated GFR (Non-African Ame 46 (>=60); Glucose 123 mg/dL (74-106); Potassium 3.5 mmol/L (3.5-5.1); Sodium 140 mmol/L (136-145); Troponin I High Sensitivity 12.1 pg/mL (4.0-51.3)
--- NOTE | 2024-06-06 19:17 | ED_ITS ---
HPI HPI - General Adult General Chief complaint: Shortness of Breath/Dyspnea Stated complaint: CONGESTION-ON O2, DOC SENT OVER Time Seen by Provider: 06/06/24 18:25 Source: patient Mode of arrival: walk-in Limitations: no limitations History of Present Illness HPI narrative: 68-year-old female to the emergency department chief complaint shortness of breath and cough. Patient reports over the last several days she has had a increase in her sputum production, work of breathing, and exercise tolerance. She reports that she can barely get around in the home. She denies any fever, sweats, chills. Her sputum is yellow in color. She is on her baseline 3 L oxygen. She has a history of COPD. She denies any chest pain. No leg swelling. No history of DVT or PE. Related Data Home Medications ?Medication ?Instructions ?Recorded ?Confirmed fluticasone fur. 200 mcg-umeclid 1 inh inhalation Q24H COPD 04/10/23 06/06/24 62.5 mcg-vilant 25 mcg inhalat.powder (Trelegy Ellipta) magnesium oxide 400 mg (241.3 mg 400 mg PO DAILY 04/10/23 06/06/24 magnesium) tablet omeprazole 20 mg capsule,delayed 20 mg PO BID 04/10/23 06/06/24 release montelukast 10 mg tablet 10 mg PO DAILY 09/14/23 06/06/24 pramipexole 0.25 mg tablet 0.25 mg PO QPM 09/14/23 06/06/24 (Mirapex) paroxetine HCl 30 mg tablet 30 mg PO QDAY 11/25/23 06/06/24 pregabalin 75 mg capsule 75 mg PO BID 11/25/23 06/06/24 solifenacin 10 mg tablet 10 mg PO QDAY 11/25/23 06/06/24 trazodone 100 mg tablet 100 mg PO .qhs 11/25/23 06/06/24 baclofen 10 mg tablet 10 mg PO Q8H 02/03/24 06/06/24 albuterol sulfate 2.5 mg/3 mL 2.5 mg continuous nebulization Q4H 06/06/24 06/06/24 (0.083 %) solution for nebulization PRN shortness of breath or wheezing Allergies Allergy/AdvReac Type Severity Reaction Status Date / Time No Known Drug Allergies Allergy Verified 06/06/24 18:27 Opioid HPI Opioid Management Most Recent Opioid Data: Last Pain Scale 4 05/06/24 09:34 Last Pain Intensity 0 02/05/24 08:27 Last ORT Total Score 1 04/11/24 15:11 Last ORT Risk Category Low Risk 04/11/24 15:11 Review of Systems ROS Status of ROS 10 or more systems reviewed and unremark able except as noted in history and below [facility] Hypomagnesemia ?E83.42 - Hypomagnesemia (ICD-10) Acute hypokalemia ?E87.6 - Hypokalemia (ICD-10) Pneumonia ?J18.9 - Pneumonia, unspecified organism (ICD-10) Acute exacerbation of chronic obstructive pulmonary disease ?J44.1 - Chronic obstructive pulmonary disease with (acute) exacerbation (ICD-10) CAD (coronary artery disease) ?I25.10 - Atherosclerotic heart disease of [place] coronary artery without angina pectoris (ICD-10) Chronic heart failure with preserved ejection fraction (HFpEF) ?I50.32 - Chronic diastolic (congestive) heart failure (ICD-10) Hypertension ?I10 - Essential (primary) hypertension (ICD-10) Myofascial pain ?M79.18 - Myalgia, other site (ICD-10) Greater trochanteric bursitis ?M70.60 - Trochanteric bursitis, unspecified hip (ICD-10) Osteoarthritis of right hip ?M16.11 - Unilateral primary osteoarthritis, right hip (ICD-10) Lumbar spondylosis ?M47.816 - Spondylosis without myelopathy or radiculopathy, lumbar region (ICD-10) Lumbar postlaminectomy syndrome ?M96.1 - Postlaminectomy syndrome, not elsewhere classified (ICD-10) Lumbar stenosis with neurogenic claudication ?M48.062 - Spinal stenosis, lumbar region with neurogenic claudication (ICD- 10) Depression ?F32.A - Depression, unspecified (ICD-10) Chronic low back pain ?M54.50 - Low back pain, unspecified (ICD-10) ?G89.29 - Other chronic pain (ICD-10) Hypoxia ?R09.02 - Hypoxemia (ICD-10) Heart murmur ?R01.1 - Cardiac murmur, unspecified (ICD-10) Chronic obstructive pulmonary disease ?J44.9 - Chronic obstructive pulmonary disease, unspecified (ICD-10) Asthma ?J45.909 - Unspecified asthma, uncomplicated (ICD-10) Surgical History Status post hip surgery ?Z98.890 - Other specified postprocedural states (ICD-10) H/O foot surgery ?Z98.890 - Other specified postprocedural states (ICD-10) H/O tubal ligation ?Z98.51 - Tubal ligation status (ICD-10) History of lumbar fusion ?Z98.1 - Arthrodesis status (ICD-10) Family History Mother Family history of CHF (congestive heart failure) Family history of hypertension Father Family history of hypertension Family history of myocardial infarction Social History Within the past year, how often did you have a drink containing alcohol: never Score interpretation: A score less than 3 is consistent with normal alcohol consumption. Smoking status: Never smoker Non-prescribed substance use: denies use Previous occupational history: retired Highest level of school completed/degree received: Associate degree: occupational, technical, vocational program Are you now , , , , never or living with a partner: In a typical week, how many times do you talk on the telephone with family, friends, or neighbors: 3 or more times per week How often do you get together with friends or relatives: 3 or more times per week How often do you attend voodoo or buddhism services: 4 or more times per year Do you belong to any clubs or organizations such as voodoo groups unions, fraternal or athletic groups, or school groups: no Total score: 2 Score interpretation: A score of greater than or equal to 2 indicates the lowest level of social isolation. Little interest or pleasure in doing things: not at all Feeling down, depressed, or hopeless: not at all Feel stressed/tense/nervous/anxious/difficulty sleeping: not at all Do you think of yourself as: straight/heterosexual Gender Identity: female Exam Narrative Exam Narrative: VITALS: I have reviewed the triage vital signs. GENERAL: Elderly female in moderate respiratory distress NEURO: Alert and oriented. Moves all extremities. Face is symmetric and expressive. EYES: PERRL. No scleral icterus or conjunctival injection. No discharge. HENT: Normocephalic, atraumatic. Hearing is grossly intact. Nares grossly patent and without discharge. Mucous membranes moist. NECK: No JVD. Patient moves neck without restriction. CARDIO: Rhythm regular. Normal rate. No murmur, rub, or gallop. Pulses equal bilaterally in the upper and lower extremity. No lower extremity edema. PULM: Rhonchi that clear with coughing. Moderate conversational dyspnea. Moderate increased work of breathing GI/: Abdomen is soft and non-tender. Normoactive bowel sounds. EXTREMITIES: Symmetric muscle bulk. No joint swelling. No clubbing, cyanosis, or deformity. SKIN: Warm and dry. Normal turgor. No rash or lesions appreciated. PSYCH: Mood, affect, and interaction is appropriate to the setting. Constitutional Vital Signs, click to edit/add: Last Vital Signs Temp 97.6 F 06/06/24 18:27 Pulse 73 06/06/24 19:00 Resp 27 H 06/06/24 19:00 BP 164/77 H 06/06/24 18:27 Pulse Ox 95 06/06/24 18:59 O2 Del Method Nasal Cannula 06/06/24 18:59 O2 Flow Rate 3 06/06/24 18:59 Course Vital Signs Vital signs: Vital Signs Temperature 97.6 F 06/06/24 18:27 Pulse Rate 77 06/06/24 18:27 Respiratory Rate 22 H 06/06/24 18:27 Blood Pressure 164/77 H 06/06/24 18:27 Pulse Oximetry 95 06/06/24 18:27 Oxygen Delivery Flow Rate 3 06/06/24 18:27 Temperature 97.6 F 06/06/24 18:27 Pulse Rate 73 06/06/24 19:00 Respiratory Rate 27 H 06/06/24 19:00 Blood Pressure 164/77 H 06/06/24 18:27 Pulse Oximetry 95 06/06/24 18:59 Oxygen Delivery Method Nasal Cannula 06/06/24 18:59 Oxygen Delivery Flow Rate 3 06/06/24 18:59 Medical Decision Making MDM Narrative Medical decision making narrative: 8-year-old female to the emergency department chief complaint of shortness of breath. Tachypneic, otherwise stable vitals. The patient is afebrile. Basic labs, chest x-ray, EKG are ordered. DuoNeb treatment and Solu-Medrol ordered. Care was signed out to Dr. Mckinney with work-up pending. Medical Records Medical records reviewed: Yes I reviewed the patient's medical records Lab Data Lab results reviewed: Yes I reviewed the patient's lab results Labs: Lab Results 06/06/24 Range/Units 18:38 WBC 7.6 (4.0-11.0) 10^3/uL RBC 4.06 L (4.20-5.40) 10^6/uL Hgb 12.3 (12.0-16.0) g/dL Hct 38.4 (36.0-48.0) % MCV 94.6 (81.0-99.0) fL MCH 30.3 (26.7-34.0) pg MCHC 32.0 (29.9-35.2) g/dL RDW 13.3 (11.0-15.0) % Plt Count 263 (150-450) 10^3/uL MPV 9.0 L (9.5-13.5) fL Neut % (Auto) 64.8 (43.0-75.0) % Lymph % (Auto) 23.6 (20.5-60.0) % [place] % (Auto) 6.6 (1.7-12.0) % Eos % (Auto) 3.4 (0.9-7.0) % Baso % (Auto) 0.7 (0.2-2.0) % Neut # (Auto) 5.0 (1.4-6.5) 10^3/uL Lymph # (Auto) 1.8 (1.2-3.8) 10^3/uL [place] # (Auto) 0.5 (0.3-0.8) 10^3/uL Eos # (Auto) 0.3 (0.0-0.7) 10^3/uL Baso # (Auto) 0.1 (0.0-0.1) 10^3/uL Abs Immat Gran (auto) 0.07 H (0.00-0.03) 10^3/uL Imm/Tot Granulo (auto) 0.9 H (0.0-0.5) % Sodium 140 (136-145) mmol/L Potassium 3.5 (3.5-5.1) mmol/L Chloride 102 (98-107) mmol/L Carbon Dioxide 33.3 H (21.0-32.0) mmol/L Anion Gap 8.2 BUN 9.0 (7.0-18.0) mg/dL Creatinine 1.17 H (0.55-1.02) mg/dL Est GFR ( Amer) 56 L (>=60) Est GFR (Non-Af Amer) 46 L (>=60) BUN/Creatinine Ratio 7.7 Glucose 123 H (74-106) mg/dL Calcium 8.5 (8.5-10.1) mg/dL Troponin I High Sens 12.1 (4.0-51.3) pg/mL NT-Pro-B Natriuret Pep 266.0 (<=900.0) pg/mL ECG Data Attestation: I personally reviewed and interpreted this ECG as follows: (Sinus rhythm. No STEMI. Normal QTc) Discharge Plan Discharge Chief Complaint: Shortness of Breath/Dyspnea Clinical Impression: Acute exacerbation of chronic obstructive pulmonary disease (COPD) Patient Disposition: Still a Patient Prescriptions / Home Meds: No Action albuterol sulfate 2.5 mg /3 mL (0.083 %) solution for nebulization 2.5 mg continuous nebulization Q4H PRN (Reason: shortness of breath or wheezing) magnesium oxide 400 mg (241.3 mg magnesium) tablet 400 mg PO DAILY Rx Instructions: WITH FOOD omeprazole 20 mg capsule,delayed release(DR/EC) 20 mg PO BID Trelegy Ellipta 200-62.5-25 mcg blister with device 1 inh INHALATION Q24H pramipexole [Mirapex] 0.25 mg tablet 0.25 mg PO QPM Rx Instructions: administer 2 - 3 hours before bedtime montelukast 10 mg tablet 10 mg PO DAILY paroxetine HCl 30 mg tablet 30 mg PO QDAY pregabalin 75 mg capsule 75 mg PO BID solifenacin 10 mg tablet 10 mg PO QDAY trazodone 100 mg tablet 100 mg PO .qhs baclofen 10 mg tablet 10 mg PO Q8H Print Language: Setswana Referrals: Shaikh Ohara MD [Primary Care Provider] - 1 week
--- NOTE | 2024-06-06 20:25 | ED.SOB1 ---
HPI - SOB/Dyspnea General Chief Complaint: Shortness of Breath/Dyspnea Stated Complaint: CONGESTION-ON O2, DOC SENT OVER Time Seen by Provider: 06/06/24 18:25 Source: patient Mode of arrival: walk-in Limitations: no limitations History of Present Illness HPI Narrative: 68-year-old female presented to the emergency department and was initially seen by Dr. Mcmahan and signed out to me after discussing the case with him thoroughly. Please see his full history and physical exam. Related Data Home Medications ?Medication ?Instructions ?Recorded ?Confirmed fluticasone fur. 200 mcg-umeclid 1 inh inhalation Q24H COPD 04/10/23 06/06/24 62.5 mcg-vilant 25 mcg inhalat.powder (Trelegy Ellipta) magnesium oxide 400 mg (241.3 mg 400 mg PO DAILY 04/10/23 06/06/24 magnesium) tablet omeprazole 20 mg capsule,delayed 20 mg PO BID 04/10/23 06/06/24 release montelukast 10 mg tablet 10 mg PO DAILY 09/14/23 06/06/24 pramipexole 0.25 mg tablet 0.25 mg PO QPM 09/14/23 06/06/24 (Mirapex) paroxetine HCl 30 mg tablet 30 mg PO QDAY 11/25/23 06/06/24 pregabalin 75 mg capsule 75 mg PO BID 11/25/23 06/06/24 solifenacin 10 mg tablet 10 mg PO QDAY 11/25/23 06/06/24 trazodone 100 mg tablet 100 mg PO .qhs 11/25/23 06/06/24 baclofen 10 mg tablet 10 mg PO Q8H 02/03/24 06/06/24 albuterol sulfate 2.5 mg/3 mL 2.5 mg continuous nebulization Q4H 06/06/24 06/06/24 (0.083 %) solution for nebulization PRN shortness of breath or wheezing Allergies Allergy/AdvReac Type Severity Reaction Status Date / Time No Known Drug Allergies Allergy Verified 06/06/24 18:27 [facility] Medical History Hypomagnesemia ?E83.42 - Hypomagnesemia (ICD-10) Acute hypokalemia ?E87.6 - Hypokalemia (ICD-10) Pneumonia ?J18.9 - Pneumonia, unspecified organism (ICD-10) Acute exacerbation of chronic obstructive pulmonary disease ?J44.1 - Chronic obstructive pulmonary disease with (acute) exacerbation (ICD-10) CAD (coronary artery disease) ?I25.10 - Atherosclerotic heart disease of [place] coronary artery without angina pectoris (ICD-10) Chronic heart failure with preserved ejection fraction (HFpEF) ?I50.32 - Chronic diastolic (congestive) heart failure (ICD-10) Hypertension ?I10 - Essential (primary) hypertension (ICD-10) Myofascial pain ?M79.18 - Myalgia, other site (ICD-10) Greater trochanteric bursitis ?M70.60 - Trochanteric bursitis, unspecified hip (ICD-10) Osteoarthritis of right hip ?M16.11 - Unilateral primary osteoarthritis, right hip (ICD-10) Lumbar spondylosis ?M47.816 - Spondylosis without myelopathy or radiculopathy, lumbar region (ICD-10) Lumbar postlaminectomy syndrome ?M96.1 - Postlaminectomy syndrome, not elsewhere classified (ICD-10) Lumbar stenosis with neurogenic claudication ?M48.062 - Spinal stenosis, lumbar region with neurogenic claudication (ICD-10) Depression ?F32.A - Depression, unspecified (ICD-10) Chronic low back pain ?M54.50 - Low back pain, unspecified (ICD-10) ?G89.29 - Other chronic pain (ICD-10) Hypoxia ?R09.02 - Hypoxemia (ICD-10) Heart murmur ?R01.1 - Cardiac murmur, unspecified (ICD-10) Chronic obstructive pulmonary disease ?J44.9 - Chronic obstructive pulmonary disease, unspecified (ICD-10) Asthma ?J45.909 - Unspecified asthma, uncomplicated (ICD-10) Surgical History Status post hip surgery ?Z98.890 - Other specified postprocedural states (ICD-10) H/O foot surgery ?Z98.890 - Other specified postprocedural states (ICD-10) H/O tubal ligation ?Z98.51 - Tubal ligation status (ICD-10) History of lumbar fusion ?Z98.1 - Arthrodesis status (ICD-10) Family History Mother Family history of CHF (congestive heart failure) Family history of hypertension Father Family history of hypertension Family history of myocardial infarction Social History Within the past year, how often did you have a drink containing alcohol: never Score interpretation: A score less than 3 is consistent with normal alcohol consumption. Smoking status: Never smoker Non-prescribed substance use: denies use Previous occupational history: retired Highest level of school completed/degree received: Associate degree: occupational, technical, vocational program Are you now , , , , never or living with a partner: In a typical week, how many times do you talk on the telephone with family, friends, or neighbors: 3 or more times per week How often do you get together with friends or relatives: 3 or more times per week How often do you attend temple or sabianism services: 4 or more times per year Do you belong to any clubs or organizations such as temple groups unions, [employer] or athletic groups, or school groups: no Total score: 2 Score interpretation: A score of greater than or equal to 2 indicates the lowest level of social isolation. Little interest or pleasure in doing things: not at all Feeling down, depressed, or hopeless: not at all Feel stressed/tense/nervous/anxious/difficulty sleeping: not at all Do you think of yourself as: straight/heterosexual Gender Identity: female Exam Constitutional Vital Signs, click to edit/add: Last Vital Signs Temp 97.6 F 06/06/24 18:27 Pulse 65 06/06/24 19:50 Resp 16 06/06/24 19:50 BP 141/93 H 06/06/24 19:46 Pulse Ox 90 L 06/06/24 19:50 O2 Del Method Nasal Cannula 06/06/24 18:59 O2 Flow Rate 3 06/06/24 18:59 Course Vital Signs Vital signs: Vital Signs Temperature 97.6 F 06/06/24 18:27 Pulse Rate 77 06/06/24 18:27 Respiratory Rate 22 H 06/06/24 18:27 Blood Pressure 164/77 H 06/06/24 18:27 Pulse Oximetry 95 06/06/24 18:27 Oxygen Delivery Flow Rate 3 06/06/24 18:27 Temperature 97.6 F 06/06/24 18:27 Pulse Rate 65 06/06/24 19:50 Respiratory Rate 16 06/06/24 19:50 Blood Pressure 141/93 H 06/06/24 19:46 Pulse Oximetry 90 L 06/06/24 19:50 Oxygen Delivery Method Nasal Cannula 06/06/24 18:59 Oxygen Delivery Flow Rate 3 06/06/24 18:59 MDM - SOB/Dyspnea MDM Narrative Medical decision making narrative: Chest x-ray shows no infiltrates. COVID test is pending. She was given IV steroid and multiple aerosol treatments here in the emergency department. She has been fatigued and she will be admitted for observation. Findings are discussed thoroughly with the patient. Differential Diagnosis Differential diagnosis: Likely acute exacerbation of chronic obstructive airways disease, congestive heart failure, community acquired pneumonia and other (COVID) Lab Data Attestation: I reviewed the patient's lab results. Labs: Lab Results 06/06/24 Range/Units 18:38 WBC 7.6 (4.0-11.0) 10^3/uL RBC 4.06 L (4.20-5.40) 10^6/uL Hgb 12.3 (12.0-16.0) g/dL Hct 38.4 (36.0-48.0) % MCV 94.6 (81.0-99.0) fL MCH 30.3 (26.7-34.0) pg MCHC 32.0 (29.9-35.2) g/dL RDW 13.3 (11.0-15.0) % Plt Count 263 (150-450) 10^3/uL MPV 9.0 L (9.5-13.5) fL Neut % (Auto) 64.8 (43.0-75.0) % Lymph % (Auto) 23.6 (20.5-60.0) % [place] % (Auto) 6.6 (1.7-12.0) % Eos % (Auto) 3.4 (0.9-7.0) % Baso % (Auto) 0.7 (0.2-2.0) % Neut # (Auto) 5.0 (1.4-6.5) 10^3/uL Lymph # (Auto) 1.8 (1.2-3.8) 10^3/uL [place] # (Auto) 0.5 (0.3-0.8) 10^3/uL Eos # (Auto) 0.3 (0.0-0.7) 10^3/uL Baso # (Auto) 0.1 (0.0-0.1) 10^3/uL Abs Immat Gran (auto) 0.07 H (0.00-0.03) 10^3/uL Imm/Tot Granulo (auto) 0.9 H (0.0-0.5) % Sodium 140 (136-145) mmol/L Potassium 3.5 (3.5-5.1) mmol/L Chloride 102 (98-107) mmol/L Carbon Dioxide 33.3 H (21.0-32.0) mmol/L Anion Gap 8.2 BUN 9.0 (7.0-18.0) mg/dL Creatinine 1.17 H (0.55-1.02) mg/dL Est GFR ( Amer) 56 L (>=60) Est GFR (Non-Af Amer) 46 L (>=60) BUN/Creatinine Ratio 7.7 Glucose 123 H (74-106) mg/dL Calcium 8.5 (8.5-10.1) mg/dL Troponin I High Sens 12.1 (4.0-51.3) pg/mL NT-Pro-B Natriuret Pep 266.0 (<=900.0) pg/mL Imaging Data Chest x-ray: Radiologist's impression: ITS Impressions Chest X-Ray 06/06/24 18:31 IMPRESSION: No acute cardiopulmonary process. Electronically authenticated by: ILIANA JONES Date: 06/06/2024 20:12 Critical Care Time Critical Care Time Critical Care Time: Yes Total Critical Care Time: 35 Attestation: Due to the high probability of sudden and clinically significant deterioration in the patient's condition he/she required the highest level of my preparedness to intervene urgently I provided critical care time including documentation time, medication orders and management, reevaluation, vital sign assessment, ordering and reviewing of lab tests, ordering and reviewing of x-ray studies, and admission orders. Aggregate critical care time is 35 minutes including only time during which I was engaged in work directly related to his/her care and did not include time spent treating other patients simultaneously. Discharge Plan Discharge Chief Complaint: Shortness of Breath/Dyspnea Clinical Impression: Acute exacerbation of chronic obstructive pulmonary disease (COPD) Patient Disposition: Admitted as Observation Time of Disposition Decision: 20:24 Condition: Fair
[2024-06-06] MEDS: ALBUTEROL SULFATE 2.5 MG/3 ML VIAL NEB IH (20:42)
[2024-06-06 20:58] LABS: Internal Control Within Normal Limits; SARS-CoV-2 Ag NEGATIVE (NEGATIVE)
--- OUTSIDE RECORDS SUMMARY | 2024-06-06 21:15 | XMS_ITS | CCD ---
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 [employer]asting Name Role Phone Steph Collier Attending Provider Unavailable hCantel Rainey Primary Care Provider Unavailabl e Joana, Herberth Attending Provider Unavailable Unavailable Primary Care Provider Unavailabl e UNKNOWN, PHYSICIAN Referring Unavailable JOO BRAVO Attending Unavailable JOO BRAVO Admitting Unavailable UNKNOWN, PHYSICIAN Primary Care Unavailable Rena Hurd Unavailable Joana, Herberth Unavailable Gato Domingo Unavailable Steph Collier Attending Provider MD Gato Domingo Attending Provider MD Nicky Ohara Primary Care Provider [phone] Gilma Trent Unavailable JOANA, HERBERTH Attending Unavailable [...] e FAWWAD, SAUNDERS H Primary Care Unavailable LA CYGNE, DR BRITTANY Elizondo Consulting Unavailable ZIEBBETH, DR STEPH Holland Consulting Unavailable KARASIK ., DR SANTIAGO Admitting Unavailabl e KARASIK ., DR SANTIAGO Attending Unavailabl e KARASIK ., DR ASNTIAGO Consulting Unavailabl e FAWWAD, SAUNDERS H Primary [...] Drug Allergy 07-07-20 17 Hallucinating [facility] (1 source) linezolid; Translations: [LINEZOLID] Drug Allergy 03-17-20 20 [facility] (20 sources) Vancomycin; Translations: [VANCOMYCIN] Drug Allergy 03-17-20 20 Unknown, Unknown Reaction [facility] (12 sources) DENIES METAL SENSITITIVITY Propensity to adverse reactions 03-14-20 24 Unknown, Unknown Reaction [facility] Medications Current Medications Medication Drug Class(es) Dates Sig (Normalized) Sig (Original) 30 ACTUAT fluticasone furoate 0.2 MG/ACTUAT / umeclidinium 0.0625 MG/ACTUAT / vilanterol 0.025 MG/ACTUAT Dry Powder Inhaler [Trelegy] (2 sources) take 1 puff(s) by inhalation once daily Trelegy Ellipta 200-62.5-25 MCG/INH 1 puff Inhalation Once a day Active [id number] 200 actuat albuterol 0.09 mg/actuat metered dose [...] 14, 2024 12:00am Start: 12-08-2022 End: 03-14-2024 Nbctotoyban-Wnzxpdgwh-Eqpbce er (Trelegy Ellipta) 200-62.5-25 mcg blister with [...] 14, 2024 10:41am take 1 capsule by [facility] every twelve hours Omeprazole 20 MG 1 CAPSULE Orally TWICE A DAY Active take 1 capsule by [facility] once daily Omeprazole 20 MG 1 capsule [...] 1 puff(s) by inhalation twice daily Ipratropium [place] (Atrovent Hfa) 17 mcg/actuation Hfa Aerosol Inhaler [...] Range Facility Office Visiton 05-13-2024 Follow-up visit [id number] Nell Champion 1955 F Date Provider Department Center 05/13/2024 Siddharth-HETAL SCALES Family History Problem Relation Age of Onset Heart failure Mother Heart disease Father Family Status - Relation Status Age at Mother Father Level of Service:76186 SD OFFICE/OUTPATIENT ESTABLISHED MOD MDM 30 MIN Normal [facility] Erythrocyte distribution wid th Auto (RBC) [Ratio]on 03-06-2024 Erythrocyte distribution width (RBC) [Ratio] 13.2 % 11.0-15.0 [facility] Estimated glomerular filtrat ion rate (GFR) non- Americanon 03-06-2024 GFR/1.73 sq M.predicted among non-blacks MDRD (S/P/Bld) [Vol rate/Area] 57 mL/min/{1.73_m2} >=60 [facility] Hematocrit Auto (Bld) [Volum e fraction]on 03-06-2024 Hematocrit (Bld) [Volume fraction] 38.7 % 36.0-48.0 [facility] Hemoglobin [Mass/volume] in Bloodon 03-06-2024 Hemoglobin (Bld) [Mass/Vol] 12.2 g/dL 12.0-16.0 [facility] Laboratory - Chemistry and C hemistry - challengeon 03-06-2024 Albumin [Mass/Vol] 3.0 g/dL 3.4-5.0 [facility] Calcium [Mass/Vol] 8.8 mg/dL 8.5-10.1 [facility] Chloride [Moles/Vol] 104 mmol/L 98-107 [facility] CO2 [Moles/Vol] 32.2 mmol/L 21.0-32.0 [facility] Creatinine [Mass/Vol] 0.97 mg/dL 0.55-1.02 [facility] GFR/1.73 sq M.predicted MDRD (S/P/Bld) [Vol rate/Area] mL/min/{1.73_m2} >=60 [facility] Glucose [Mass/Vol] 67 mg/dL 74-106 [facility] Magnesium [Mass/Vol] 1.9 mg/dL 1.8-2.4 [facility] Potassium [Moles/Vol] 3.4 mmol/L 3.5-5.1 [facility] Sodium [Moles/Vol] 143 mmol/L 136-145 [facility] Urate [Mass/Vol] 5.0 mg/dL 2.6-6.0 [facility] Urea nitrogen [Mass/Vol] 16.0 mg/dL 7.0-18.0 [facility] Urea nitrogen/Creatinine [Mass ratio] 16.5 mg/mg [facility] Leukocytes [#/volume] correc melanie for nucleated erythrocytes in Blood by Automated counon 03-06-2024 WBC corrected for nucl RBC Auto (Bld) [#/Vol] 8.1 10 3/uL 4.0-11.0 [facility] MCH Auto (RBC) [Entitic mass ]on 03-06-2024 MCH (RBC) [Entitic mass] 30.4 pg 26.7-34.0 [facility] MCHC Auto (RBC) [Mass/Vol]on 03-06-2024 MCHC (RBC) [Mass/Vol] 31.5 g/dL 29.9-35.2 [facility] MCV Auto (RBC) [Entitic vol] on 03-06-2024 MCV (RBC) [Entitic vol] 96.5 fL 81.0-99.0 [facility] No Panel Informationon 03-06 Urine Random Creatinine 63.27 mg/dL 20.00-300.00 [facility] Urine Random Total Protein <6.0 mg/dL <=11.9 [facility] 25-Hydroxy Vitamin D Total 37.1 ng/mL [facility] Comment on above: <20 ng/mL Vit D defi cient20-<30 ng/mL Vit D [id number] ng/mL Vit D sufficient>100 ng/mL Potential Toxicity Parathyroid Hormone (Intact) 36 pg/mL 15-65 [facility] Comment on above: Performed at: [facility] [employer] [address] [id number] Director: Raphael Marrero PhD, Phone: [phone] Phosphorus Level 3.2 mg/dL 2.6-4.7 [facility] Platelet mean volume Auto (B ld) [Entitic vol]on 03-06-2024 Platelet mean volume (Bld) [Entitic vol] 9.1 fL 9.5-13.5 [facility] Platelets Auto (Bld) [#/Vol] on 03-06-2024 Platelets (Bld) [#/Vol] 247 10 3/uL 150-450 [facility] RBC Auto (Bld) [#/Vol]on RBC (Bld) [#/Vol] 4.01 10 6/uL 4.20-5.40 [facility] Serum or plasma anion gap de terminationon 03-06-2024 Anion gap [Moles/Vol] 10.2 mmol/L [facility] SYMPTOMATIC COVID-19 ANTIGEN on 04-04-2023 EUA Statement SEE BELOW Normal [facility] Comment on above: Result Comment: [...] sooner. Performed By: #### C VDAGS #### [facility] [address] [place] [address] Dr. Shayne Roldan SARS-CoV-2 (COVID-19) RNA KAYLEE+probe Ql (Unsp spec) Positive Abnormal NEGATIVE [facility] Comment on above: Performed By: #### C VDAGS #### [facility] [address] [place] [address] Dr. Shayne Roldan XR LSPINE 2_3 VIEWSon [...] STEPH GRANADOS Date: 2023-03-24 12:52 Normal [facility] PTH INTACTon 02-27-2023 PTH, Intact 87 pg/mL Critically high 15-65 [facility] Comment on above: Performed By: #### P THINT #### [facility] [address] [place] [address] Dr. Shayne Roldan HEMOGRAM AND PLATELon 2022 Hematocrit (Bld) [Volume fraction] 44.4 % Normal 36.0-48.0 [facility] Comment on above: Performed By: #### H H #### [facility] [address] [place] [address] Dr. Shayne Rodlan Hemoglobin (Bld) [Mass/Vol] 14.5 g/dL Normal 12.0-16.0 [facility] Comment on above: Performed By: #### H H #### [facility] [address] [place] [address] Dr. Shayne Roldan MCH (RBC) [Entitic mass] 30.3 pg Normal 26.7-34.0 [facility] Comment on above: Performed By: #### H H #### [facility] [address] [place] [address] Dr. Shayne Roldan MCHC (RBC) [Mass/Vol] 32.7 g/dL Normal 29.9-35.2 [facility] Comment on above: Performed By: #### H H #### [facility] [address] [place] [address] Dr. Shayne Roldan MCV (RBC) [Entitic vol] 92.9 fL Normal 81.0-99.0 [facility] Comment on above: Performed By: #### H H #### [facility] [address] [place] [address] Dr. Shayne Roldan PLT 367 103/ul Normal 150-450 [facility] Comment on above: Performed By: #### H H #### [facility] [address] [place] [address] Dr. Shayne Roldan RBC 4.78 106/ul Normal 4.20-5.40 [facility] Comment on above: Performed By: #### H H #### [facility] [address] [place] [address] Dr. Shayne Roldan WBC 9.9 103/ul Normal 4.0-11.0 [facility] Comment on above: Performed By: #### H H #### [facility] [address] [place] [address] Dr. Shayne Roldan MAGNESIUMon 02-25-2023 Magnesium [Mass/Vol] 1.6 mg/dL Critically low 1.8-2.4 [facility] Comment on above: Performed By: #### M G, RENAL, URIC #### [facility] [address] [address] [address] Shayne Roldan RENAL FUNCTION PANELon 02-25 Albumin [Mass/Vol] 3.4 g/dL Normal 3.4-5.0 [facility] Comment on above: Performed By: #### M G, RENAL, URIC #### [facility] [address] [place] [address] Dr. Shayne Roldan Calcium [Mass/Vol] 8.7 mg/dL Normal 8.5-10.1 [facility] Comment on above: Performed By: #### M G, RENAL, URIC #### [facility] [address] [place] [address] Dr. Shayne Roldan Chloride [Moles/Vol] 104 mmol/L Normal 98-107 [facility] Comment on above: Performed By: #### M G, RENAL, URIC #### [facility] [address] [place] [address] Dr. Shayne Roldan CO2 [Moles/Vol] 25.9 mmol/L Normal 21.0-32.0 [facility] Comment on above: Performed By: #### M G, RENAL, URIC #### [facility] [address] [place] [address] Dr. Shayne Roldan Creatinine [Mass/Vol] 1.19 mg/dL Critically high 0.55-1.02 [facility] Comment on above: Performed By: #### M G, RENAL, URIC #### [facility] [address] [place] [address] Dr. Shayne Roldan EGFR-AF ARMENIAN 55 mL/min/1.73m2 Critically low >=60 [facility] Comment on above: Performed By: #### M G, RENAL, URIC #### [facility] [address] [place] [address] Dr. Shayne Roldan EGFR-NON AF ARMENIAN 45 mL/min/1.73m2 Critically low >=60 [facility] Comment on above: Performed By: #### M G, RENAL, URIC #### [facility] [address] [address] [address] Shayne Roldan Glucose [Mass/Vol] 193 mg/dL Critically high 74-106 [facility] Comment on above: Performed By: #### M G, RENAL, URIC #### [facility] [address] [place] [address] Dr. Shayne Roldan Phosphate [Mass/Vol] 3.2 mg/dL Normal 2.6-4.7 [facility] Comment on above: Performed By: #### M G, RENAL, URIC #### [facility] [address] [place] [address] Dr. Shayne Roldan Potassium [Moles/Vol] 3.9 mmol/L Normal 3.5-5.1 [facility] Comment on above: Performed By: #### M G, RENAL, URIC #### [facility] [address] [place] [address] Dr. Shayne Roldan Sodium [Moles/Vol] 140 mmol/L Normal 136-145 [facility] Comment on above: Performed By: #### M G, RENAL, URIC #### [facility] [address] [place] [address] Dr. Shayne Roldan Urea nitrogen [Mass/Vol] 17.0 mg/dL Normal 7.0-18.0 [facility] Comment on above: Performed By: #### M G, RENAL, URIC #### [facility] [address] [place] [address] Dr. Shayne Roldan UA RANDOM W/MICROSCOPICon BACTERIA TRACE Abnormal NONE SEEN [facility] Comment on above: Performed By: #### M G, RENAL, URIC #### [facility] [address] [place] [address] Dr. Shayne Roldan Bilirubin Ql (U) Negative Normal NEGATIVE [facility] Comment on above: Performed By: #### M G, RENAL, URIC #### [facility] [address] [place] [address] Dr. Shayne Roldan CAST NONE SEEN Normal NONE SEEN [facility] Comment on above: Performed By: #### M G, RENAL, URIC #### [facility] [address] [address] [address] Shayne Roldan Clarity (U) CLEAR Normal CLEAR [facility] Comment on above: Performed By: #### M G, RENAL, URIC #### [facility] [address] [address] [address] Shayne Roldan Color (U) LT. YELLOW Normal YELLOW [facility] Comment on above: Performed By: #### M G, RENAL, URIC #### [facility] [address] [address] [address] Shayne Roldan Crystals LM Nom (Urine sed) NONE SEEN Normal NONE SEEN [facility] Comment on above: Performed By: #### M G, RENAL, URIC #### [facility] [address] [place] [address] Dr. Shayne Roldan Epithelial cells LM Ql (Urine sed) RARE Normal NONE SEEN /RARE [facility] Comment on above: Performed By: #### M G, RENAL, URIC #### [facility] [address] [address] [address] Shayne Roldan Glucose Ql (U) Negative Normal NEGATIVE [facility] Comment on above: Performed By: #### M G, RENAL, URIC #### [facility] [address] [place] [address] Dr. Shayne Roldan Hemoglobin Ql (U) Negative Normal NEGATIVE [facility] Comment on above: Performed By: #### M G, RENAL, URIC #### [facility] [address] [address] [address] Shayne Roldan Ketones Ql (U) Negative Normal NEGATIVE [facility] Comment on above: Performed By: #### M G, RENAL, URIC #### [facility] [address] [place] [address] Dr. Shayne Roldan LEUKOCYTES Negative Normal NEGATIVE [facility] Comment on above: Performed By: #### M G, RENAL, URIC #### [facility] [address] [address] [address] Shayne Roldan MUCOUS NONE SEEN Normal NONE SEEN [facility] Comment on above: Performed By: #### M G, RENAL, URIC #### [facility] [address] [address] [address] Shayne Roldan Nitrite Ql (U) Negative Normal NEGATIVE [facility] Comment on above: Performed By: #### M G, RENAL, URIC #### [facility] [address] [address] [address] Shayne Roldan pH (U) 5.0 [pH] Normal 5-9 [facility] Comment on above: Performed By: #### M G, RENAL, URIC #### [facility] [address] [address] [address] Shayne Roldan RBC 0-2 Normal 0-2 [facility] Comment on above: Performed By: #### M G, RENAL, URIC #### [facility] [address] [place] [address] Dr. Shayne Roldan SPEC GRAVITY 1.025 Normal 1.005-<=1.025 [facility] Comment on above: Performed By: #### M G, RENAL, URIC #### [facility] [address] [place] [address] Dr. Shayne Roldan UA PROTEIN Negative Normal NEGATIVE/ TRACE [facility] Comment on above: Performed By: #### M G, RENAL, URIC #### [facility] [address] [place] [address] Dr. Shayne Roldan Urobilinogen Qn (U) 0.2 {Rogelio'U}/dL Normal 0.2 - 1. 0 [facility] Comment on above: Performed By: #### M G, RENAL, URIC #### [facility] [address] [address] [address] Shayne Roldan WBC 0-2 Abnormal NONE SEEN [facility] Comment on above: Performed By: #### M G, RENAL, URIC #### [facility] [address] [place] [address] Dr. Shayne Roldan URIC ACID SERUMon 02-25-2023 Urate [Mass/Vol] 6.1 mg/dL Critically high 2.6-6.0 [facility] Comment on above: Performed By: #### M G, RENAL, URIC #### [facility] [address] [place] [address] Dr. Shayne Roldan URINE T PROTEIN CREAT RATIOo n 02-25-2023 Protein (U) [Mass/Vol] 13.0 mg/dL Critically high <=12.0 [facility] Comment on above: Performed By: #### M G, RENAL, URIC #### [facility] [address] [address] [address] Shayne Roldan UR PROT CREAT RAT 0.16 Normal [facility] Comment on above: Performed By: #### M G, RENAL, URIC #### [facility] [address] [place] [address] Dr. Shayne Roldan URINE CREAT 83.60 mg/dL Normal 20.00-300.00 [facility] Comment on above: Performed By: #### M G, RENAL, URIC #### [facility] [address] [place] [address] Dr. Shayne Roldan VITAMIN D 25 OHon 02-25-2023 VIT D 25-OH 41.6 ng/mL Normal [facility] Comment on above: Performed By: #### M G, RENAL, URIC #### [facility] [address] [place] [address] Dr. Shayne Roldan VIT D RANGES SEE BELOW Normal [facility] Comment on above: Result Comment: <20 ng/mL Vit D deficient 20 - <30 ng/mL Vit D insufficient 30 - 100 ng/mL Vit D sufficient >100 ng/mL Potential Toxicity Performed By: #### M G, RENAL, URIC #### [facility] [address] [place] [address] Dr. Shayne Roldan XR CHEST 2 Von [...] by: BRITTANY GALDAMEZ Date: 2023-02-22 16:15 Normal [facility] MAMM SCREEN 3D PRATEEK CADon 12-15-2022 MG MAMM SCREEN 3D PRATEEK CAD Patient: DIANA CHAMPION Exam Date: 12/15/2022 : 1955 Gender:F Ordering : DR JACK HALL . Admission #: [id number] Family : Order #: [id number] CLICK HERE TO VIEW EXAM RADIOLOGY REPORT PROCEDURE: MAMMOGRAM SCREENING 3D BILATERAL CAD COMPARISON: MG MAMM SCREEN 3D PRATEEK CAD, 11/26/2021. INDICATIONS: Calculator Name NCI Breast Cancer Risk Assessment Tool 5 Year Breast Cancer Risk 1.20% Lifetime Breast Cancer Risk 4.40% Personal Breast Cancer No Personal Ovarian Cancer No Treatments Excision, radiation, chemotherapy Family Cancers None LOCATION: [facility] BREAST COMPOSITION: Almost entirely fatty. [...] Walters MD on 12/15/2022 at 10:51 Normal [facility] XR DEXA BONE DENSITYon 12-15 XR [...] by: STEPH GRANADOS Date: 2022-12-15 09:50 Normal [facility] Fran 12-08-2022 L - -------- Specimen: [id number] Received: 12/08/22 Status: CELIA Kay Num: [id number] Spec Type: Surgical Subm Dr: Gato Domingo MD Tissues: A Colon Biopsy (DESC COL POLYP) Procedures: FLORENCIA/Shagufta Douglass/Dionna L4 -------- Age/ Patient Sex Location Account Attending Physician -------- Diana Champion 67/F [id number] Gato Domingo MD -------- SPEC NUM: [id number] RECD: 12/08/22 STATUS: CELIA KAY NUM: [id number] KENDRA: 12/08/[address] [facility] [address]: Gato Domingo MD ENTERED: 12/08/22 [facility] DR: SPEC TYPE: Surgical DEPT: S ENTERED BY: [id number] RECV BY: [id number] ORDERED: HE/2, Gross/Micro L4 ORDERED: HE/2, Gross/Micro [...] support the above pathologic diagnosis. CPT Codes 95533 -------- -------- Specimen: [id number] Received: 12/08/22 Status: CELIA Kay Num: [id number] Spec Type: Surgical Subm Dr: Gato Domingo MD Tissues: A Colon Biopsy (DESC COL POLYP) Procedures: HE/2, Gross/Micro L4 -------- Patient: Diana Champion [id number] (Continued) -------- Signed (signature on file) Eunice Rosa MD 12/09/22 1053 [facility] PAP ACOG PANEL 2: 30 to 65on 11-16-2022 . . [facility] Comment on above: Performed By: #### [id number] #### [facility] [address] [place] [address] Dr. Shayne Roldan Age Gdln ACOG Testing Comment [facility] Comment on above: Result Comment: <21 or >65 or no age provided Performed By: #### [id number] #### [facility] [address] [place] [address] Dr. Shayne Roldan DIAGNOSIS: Comment [facility] Comment on above: Result Comment: NEGA TIVE FOR INTRAEPITHELIAL LESION OR MALIGNANCY. Performed By: #### [id number] #### [facility] [address] [place] [address] Dr. Shayne Roldan Methodology: Comment [facility] Comment on above: Result Comment: This liquid based ThinPrep(R) pap test was screened with the use of an image guided system. Performed By: #### [id number] #### [facility] [address] [place] [address] Dr. Shayne Roldan Note: Comment [facility] Comment on above: Result Comment: The Pap smear is a screening test designed to aid in the detection of premalignant and malignant conditions of the uterine cervix. It is not a diagnostic procedure and should not be used as the sole means of detecting cervical cancer. Both false-positive and false-negative reports do occur. . Performed By: #### [id number] #### [facility] [address] [place] [address] Dr. Shayne Roldan Performed by: Comment Normal [facility] Comment on above: Result Comment: Onur Aguilar Remelt Operator (ASCP) Performed By: #### [id number] #### [facility] [address] [place] [address] Dr. Shayne Roldan Specimen adequacy: Comment Normal [facility] Comment on above: Result Comment: Sati sfactory for evaluation. Endocervical and/or squamous metaplastic cells (endocervical component) are present. Performed By: #### [id number] #### [facility] [address] [place] [address] Dr. Shayne Roldan RENAL FUNCTION PANELon 08-19 Albumin [Mass/Vol] 3.4 g/dL Normal 3.4-5.0 [facility] Comment on above: Performed By: #### M G, RENAL, URIC #### [facility] [address] [place] [address] Dr. Shayne Roldan Calcium [Mass/Vol] 8.4 mg/dL Critically low 8.5-10.1 Th [facility] Comment on above: Performed By: #### M G, RENAL, URIC #### [facility] [address] [place] [address] Dr. Shayne Roldan Chloride [Moles/Vol] 103 mmol/L Normal 98-107 [facility] Comment on above: Performed By: #### M G, RENAL, URIC #### [facility] [address] [place] [address] Dr. Shayne Roldan CO2 [Moles/Vol] 27.8 mmol/L Normal 21.0-32.0 [facility] Comment on above: Performed By: #### M G, RENAL, URIC #### [facility] [address] [place] [address] Dr. Shayne Roldan Creatinine [Mass/Vol] 1.02 mg/dL Normal 0.55-1.02 [facility] Comment on above: Performed By: #### M G, RENAL, URIC #### [facility] [address] [address] [address] Shayne Roldan EGFR-AF ARMENIAN >60 Normal >=60 [facility] Comment on above: Performed By: #### M G, RENAL, URIC #### [facility] [address] [address] [address] Shayne Roldan EGFR-NON AF ARMENIAN 54 mL/min/1.73m2 Critically low >=60 [facility] Comment on above: Performed By: #### M G, RENAL, URIC #### [facility] [address] [place] [address] Dr. Shayne Roldan Glucose [Mass/Vol] 110 mg/dL Critically high 74-106 [facility] Comment on above: Performed By: #### M G, RENAL, URIC #### [facility] [address] [address] [address] Shayne Roldan Phosphate [Mass/Vol] 2.3 mg/dL Critically low 2.6-4.7 [facility] Comment on above: Performed By: #### M G, RENAL, URIC #### [facility] [address] [address] [address] Shayne Roldan Potassium [Moles/Vol] 3.2 mmol/L Critically low 3.5-5.1 [facility] Comment on above: Performed By: #### M G, RENAL, URIC #### [facility] [address] [address] [address] Shayne Roldan Sodium [Moles/Vol] 138 mmol/L Normal 136-145 [facility] Comment on above: Performed By: #### M G, RENAL, URIC #### [facility] [address] [address] [address] Shayne Rodlan Urea nitrogen [Mass/Vol] 14.0 mg/dL Normal 7.0-18.0 [facility] Comment on above: Performed By: #### M G, RENAL, URIC #### [facility] [address] [place] [address] Dr. Shayne Roldan PTH INTACTon 08-06-2022 PTH, Intact 40 pg/mL Normal 15-65 [facility] Comment on above: Performed By: #### M G, RENAL, URIC #### [facility] [address] [place] [address] Dr. Shayne Roldan HEMOGRAM AND PLATELon 2021 Hematocrit (Bld) [Volume fraction] 39.8 % Normal 36.0-48.0 [facility] Comment on above: Performed By: #### M G, RENAL, URIC #### [facility] [address] [place] [address] Dr. Shayne Roldan Hemoglobin (Bld) [Mass/Vol] 13.4 g/dL Normal 12.0-16.0 [facility] Comment on above: Performed By: #### M G, RENAL, URIC #### [facility] [address] [place] [address] Dr. Shayne Roldan MCH (RBC) [Entitic mass] 30.5 pg Normal 26.7-34.0 [facility] Comment on above: Performed By: #### M G, RENAL, URIC #### [facility] [address] [place] [address] Dr. Shayne Roldan MCHC (RBC) [Mass/Vol] 33.7 g/dL Normal 29.9-35.2 [facility] Comment on above: Performed By: #### M G, RENAL, URIC #### [facility] [address] [place] [address] Dr. Shayne Roldan MCV (RBC) [Entitic vol] 90.5 fL Normal 81.0-99.0 [facility] Comment on above: Performed By: #### M G, RENAL, URIC #### [facility] [address] [place] [address] Dr. Shayne Roldan PLT 299 103/ul Normal 150-450 [facility] Comment on above: Performed By: #### M G, RENAL, URIC #### [facility] [address] [place] [address] Dr. Shayne Roldan RBC 4.40 106/ul Normal 4.20-5.40 [facility] Comment on above: Performed By: #### M G, RENAL, URIC #### [facility] [address] [address] [address] Shayne Roldan WBC 8.8 103/ul Normal 4.0-11.0 [facility] Comment on above: Performed By: #### M G, RENAL, URIC #### [facility] [address] [address] [address] Shayne Roldan MAGNESIUMon 08-05-2022 Magnesium [Mass/Vol] 1.5 mg/dL Critically low 1.8-2.4 [facility] Comment on above: Performed By: #### M G, RENAL, URIC #### [facility] [address] [address] [address] Shayne Roldan RENAL FUNCTION PANELon 08-05 Albumin [Mass/Vol] 3.5 g/dL Normal 3.4-5.0 [facility] Comment on above: Performed By: #### M G, RENAL, URIC #### [facility] [address] [address] [address] Shayne Roldan Calcium [Mass/Vol] 8.4 mg/dL Critically low 8.5-10.1 [facility] Comment on above: Performed By: #### M G, RENAL, URIC #### [facility] [address] [address] [address] Shayne Roldan Chloride [Moles/Vol] 101 mmol/L Normal 98-107 [facility] Comment on above: Performed By: #### M G, RENAL, URIC #### [facility] [address] [address] [address] Shayne Roldan CO2 [Moles/Vol] 29.5 mmol/L Normal 21.0-32.0 [facility] Comment on above: Performed By: #### M G, RENAL, URIC #### [facility] [address] [address] [address] Shayne Roldan Creatinine [Mass/Vol] 1.04 mg/dL Critically high 0.55-1.02 [facility] Comment on above: Performed By: #### M G, RENAL, URIC #### [facility] [address] [place] [address] Dr. Shayne Roldan EGFR-AF ARMENIAN >60 Normal >=60 [facility] Comment on above: Performed By: #### M G, RENAL, URIC #### [facility] [address] [place] [address] Dr. Shayne Roldan EGFR-NON AF ARMENIAN 53 mL/min/1.73m2 Critically low >=60 [facility] Comment on above: Performed By: #### M G, RENAL, URIC #### [facility] [address] [place] [address] Dr. Shayne Roldan Glucose [Mass/Vol] 92 mg/dL Normal 74-106 [facility] Comment on above: Performed By: #### M G, RENAL, URIC #### [facility] [address] [place] [address] Dr. Shayne Roldan Phosphate [Mass/Vol] 2.4 mg/dL Critically low 2.6-4.7 [facility] Comment on above: Performed By: #### M G, RENAL, URIC #### [facility] [address] [place] [address] Dr. Shayne Roldan Potassium [Moles/Vol] 2.8 mmol/L Critically low 3.5-5.1 [facility] Comment on above: Performed By: #### M G, RENAL, URIC #### [facility] [address] [place] [address] Dr. Shayne Roldan Sodium [Moles/Vol] 137 mmol/L Normal 136-145 [facility] Comment on above: Performed By: #### M G, RENAL, URIC #### [facility] [address] [place] [address] Dr. Shayne Roldan Urea nitrogen [Mass/Vol] 10.0 mg/dL Normal 7.0-18.0 [facility] Comment on above: Performed By: #### M G, RENAL, URIC #### [facility] [address] [place] [address] Dr. Shayne Roldan UA RANDOM W/MICROSCOPICon BACTERIA SMALL Abnormal NONE SEEN [facility] Comment on above: Performed By: #### U AMIC #### [facility] [address] [address] [address] Shayne Roldan Bilirubin Ql (U) Negative Normal NEGATIVE [facility] Comment on above: Performed By: #### U AMIC #### [facility] [address] [address] [address] Shayne Roldan CAST NONE SEEN Normal NONE SEEN [facility] Comment on above: Performed By: #### U AMIC #### [facility] [address] [address] [address] Shayne Roldan Clarity (U) CLEAR Normal CLEAR [facility] Comment on above: Performed By: #### U AMIC #### [facility] [address] [place] [address] Dr. Shayne Roldan Color (U) LT. YELLOW Normal YELLOW [facility] Comment on above: Performed By: #### U AMIC #### [facility] [address] [address] [address] Shayne Roldan Crystals LM Nom (Urine sed) NONE SEEN Normal NONE SEEN [facility] Comment on above: Performed By: #### U AMIC #### [facility] [address] [place] [address] Dr. Shayne Roldan Epithelial cells LM Ql (Urine sed) FEW Abnormal NONE SEEN /RARE [facility] Comment on above: Performed By: #### U AMIC #### [facility] [address] [address] [address] Shayne Roldan Glucose Ql (U) Negative Normal NEGATIVE The [facility] Comment on above: Performed By: #### U AMIC #### [facility] [address] [address] [address] Shayne Roldan Hemoglobin Ql (U) Negative Normal NEGATIVE The [facility] Comment on above: Performed By: #### U AMIC #### [facility] [address] [address] [address] Shayne Roldan Ketones Ql (U) Negative Normal NEGATIVE The [facility] Comment on above: Performed By: #### U AMIC #### [facility] [address] [address] [address] Shayne Roldan LEUKOCYTES TRACE Abnormal NEGATIVE [facility] Comment on above: Performed By: #### U AMIC #### [facility] [address] [place] [address] Dr. Shayne Roldan MUCOUS NONE SEEN Normal NONE SEEN [facility] Comment on above: Performed By: #### U AMIC #### [facility] [address] [place] [address] Dr. Shayne Roldan Nitrite Ql (U) Negative Normal NEGATIVE The [facility] Comment on above: Performed By: #### U AMIC #### [facility] [address] [place] [address] Dr. Shayne Roldan pH (U) 6.0 [pH] Normal 5-9 [facility] Comment on above: Performed By: #### U AMIC #### [facility] [address] [place] [address] Dr. Shayne Roldan RBC NONE SEEN Abnormal 0-2 [facility] Comment on above: Performed By: #### U AMIC #### [facility] [address] [place] [address] Dr. Shayne Roldan SPEC GRAVITY <=1.005 Abnormal 1.005-<=1.025 [facility] Comment on above: Performed By: #### U AMIC #### [facility] [address] [place] [address] Dr. Shayne Roldan UA PROTEIN Negative Normal NEGATIVE/ TRACE [facility] Comment on above: Performed By: #### U AMIC #### [facility] [address] [place] [address] Dr. Shayne Roldan Urobilinogen Qn (U) 0.2 {Rogelio'U}/dL Normal 0.2 - 1. 0 [facility] Comment on above: Performed By: #### U AMIC #### [facility] [address] [place] [address] Dr. Shayne Roldan WBC 5-10 Abnormal NONE SEEN [facility] Comment on above: Performed By: #### U AMIC #### [facility] [address] [address] [address] Shayne Roldan URIC ACID SERUMon 08-05-2022 Urate [Mass/Vol] 6.5 mg/dL Critically high 2.6-6.0 [facility] Comment on above: Performed By: #### M G, RENAL, URIC #### [facility] [address] [place] [address] Dr. Shayne Roldan URINE T PROTEIN CREAT RATIOo n 08-05-2022 Protein (U) [Mass/Vol] 4.8 mg/dL Normal <=12.0 [facility] Comment on above: Performed By: #### U RTPCR #### [facility] [address] [place] [address] Dr. Shayne Roldan UR PROT CREAT RAT 0.09 Normal [facility] Comment on above: Performed By: #### U RTPCR #### [facility] [address] [place] [address] Dr. Shayne Roldan URINE CREAT 52.65 mg/dL Normal 20.00-300.00 [facility] Comment on above: Performed By: #### U RTPCR #### [facility] [address] [place] [address] Dr. Shayne Roldan VITAMIN D 25 OHon 08-05-2022 VIT D 25-OH 38.9 ng/mL Normal [facility] Comment on above: Performed By: #### M G, RENAL, URIC #### [facility] [address] [place] [address] Dr. Shayne Roldan VIT D RANGES SEE BELOW Normal [facility] Comment on above: Result Comment: <20 ng/mL Vit D deficient 20 - <30 ng/mL Vit D insufficient 30 - 100 ng/mL Vit D sufficient >100 ng/mL Potential Toxicity Performed By: #### M G, RENAL, URIC #### [facility] [address] [place] [address] Dr. Shayne Roldan IMMUNOGLOBULINS IGA/IGM/IGG/ IGE QUANTITAon 07-12-2022 Immunoglobulin A, Qn, Serum 295 mg/dL Normal 87-352 [facility] Comment on above: Result Comment: Perf ormed at: CB Performed By: #### M G, RENAL, URIC #### [facility] [address] [address] [address] Shayne Roldan Immunoglobulin E, Total 32 IU/mL Normal 6-495 [facility] Comment on above: Result Comment: Perf ormed at: BN Performed By: #### M G, RENAL, URIC #### [facility] [address] [address] [address] Shayne Roldan Immunoglobulin G, Qn, Serum 729 mg/dL Normal 586-1602 [facility] Comment on above: Result Comment: Perf ormed at: CB Performed By: #### M G, RENAL, URIC #### [facility] [address] [place] [address] Dr. Shayne Roldan Immunoglobulin M, Qn, Serum 75 mg/dL Normal 26-217 [facility] Comment on above: Result Comment: Perf ormed at: CB Performed By: #### M G, RENAL, URIC #### [facility] [address] [place] [address] Dr. Shayne Roldan CBC AUTO DIFFon 07-05-2022 BASO # 0.1 103/ul Normal 0.0-0.1 [facility] Comment on above: Performed By: #### M G, RENAL, URIC #### [facility] [address] [place] [address] Dr. Shayne Roldan Basophils/100 WBC (Bld) 0.7 % Normal 0.2-2.0 [facility] Comment on above: Performed By: #### M G, RENAL, URIC #### [facility] [address] [address] [address] Shayne Roldan EO # 0.4 103/ul Normal 0.0-0.7 [facility] Comment on above: Performed By: #### M G, RENAL, URIC #### [facility] [address] [place] [address] Dr. Shayne Roldan Eosinophils/100 WBC (Bld) 4.4 % Normal 0.9-7.0 [facility] Comment on above: Performed By: #### M G, RENAL, URIC #### [facility] [address] [place] [address] Dr. Shayne Roldan Erythrocyte distribution width (RBC) [Ratio] 12.6 % Normal 11.0-15.0 [facility] Comment on above: Performed By: #### M G, RENAL, URIC #### [facility] [address] [place] [address] Dr. Shayne Roldan Hematocrit (Bld) [Volume fraction] 40.2 % Normal 36.0-48.0 [facility] Comment on above: Performed By: #### M G, RENAL, URIC #### [facility] [address] [place] [address] Dr. Shayne Roldan Hemoglobin (Bld) [Mass/Vol] 13.6 g/dL Normal 12.0-16.0 [facility] Comment on above: Performed By: #### M G, RENAL, URIC #### [facility] [address] [place] [address] Dr. Shayne Roldan IG # 0.07 10e3/ul Critically high 0.00-0.03 [facility] Comment on above: Performed By: #### M G, RENAL, URIC #### [facility] [address] [place] [address] Dr. Shayne Roladn IG % 0.8 % Critically high 0.0-0.5 [facility] Comment on above: Performed By: #### M G, RENAL, URIC #### [facility] [address] [place] [address] Dr. Shayne Roldan LYMPH # 2.3 103/ul Normal 1.2-3.8 [facility] Comment on above: Performed By: #### M G, RENAL, URIC #### [facility] [address] [place] [address] Dr. Shayne Roldan Lymphocytes/100 WBC (Bld) 24.7 % Normal 20.5-60.0 [facility] Comment on above: Performed By: #### M G, RENAL, URIC #### [facility] [address] [place] [address] Dr. Shayne Roldan MANUAL DIFF REQ NO Normal [facility] Comment on above: Performed By: #### M G, RENAL, URIC #### [facility] [address] [place] [address] Dr. Shayne Roldan MCH (RBC) [Entitic mass] 30.7 pg Normal 26.7-34.0 [facility] Comment on above: Performed By: #### M G, RENAL, URIC #### [facility] [address] [place] [address] Dr. Shayne Roldan MCHC (RBC) [Mass/Vol] 33.8 g/dL Normal 29.9-35.2 [facility] Comment on above: Performed By: #### M G, RENAL, URIC #### [facility] [address] [place] [address] Dr. Shayne Roldan MCV (RBC) [Entitic vol] 90.7 fL Normal 81.0-99.0 [facility] Comment on above: Performed By: #### M G, RENAL, URIC #### [facility] [address] [place] [address] Dr. Shayne Roldan MONO # 0.7 103/ul Normal 0.3-0.8 [facility] Comment on above: Performed By: #### M G, RENAL, URIC #### [facility] [address] [place] [address] Dr. Shayne Roldan Monocytes/100 WBC (Bld) 7.7 % Normal 1.7-12.0 [facility] Comment on above: Performed By: #### M G, RENAL, URIC #### [facility] [address] [place] [address] Dr. Shayne Roldan NEUT # 5.7 103/ul Normal 1.4-6.5 [facility] Comment on above: Performed By: #### M G, RENAL, URIC #### [facility] [address] [place] [address] Dr. Shayne Roldan Neutrophils/100 WBC (Bld) 61.7 % Normal 43.0-75.0 [facility] Comment on above: Performed By: #### M G, RENAL, URIC #### [facility] [address], [place] [address] Dr. Shayne Roldan Platelet mean volume (Bld) [Entitic vol] 8.8 fL Critically low 9.5-13.5 [facility] Comment on above: Performed By: #### M G, RENAL, URIC #### [facility] [address], [place] [address] Dr. Shayne Roldan PLT 279 103/ul Normal 150-450 [facility] Comment on above: Performed By: #### M G, RENAL, URIC #### [facility] [address], [place] [address] Dr. Shayne Rlodan RBC 4.43 106/ul Normal 4.20-5.40 [facility] Comment on above: Performed By: #### M G, RENAL, URIC #### [facility] [address], [place] [address] Dr. Shayne Roldan WBC 9.1 103/ul Normal 4.0-11.0 [facility] Comment on above: Performed By: #### M G, RENAL, URIC #### [facility] [address], [place] [address] Dr. Shayne Roldan Covid-19 PCR ([facility])on SARS-CoV-2 (COVID-19) RNA KAYLEE+probe Ql (Unsp spec) Not detected Normal NOT DETECTED [facility] Comment on above: Result Comment: This test is not yet approved or cleared by the [place] FDA. When there are no FDA-approved or cleared tests available, and other criteria are met, FDA can make tests available under an emergency access mechanism called an Emergency Use Authorization (EUA). The EUA for this test is supported by the [place] of Health and Human Service's (HHS's) declaration [...] By: #### M G, RENAL, URIC #### [facility] [address], [place] [address] Dr. Shayne Roldan XR CHEST 2 Von [...] NARDA LONDONO Date: 2022-06-08 19:58 Normal [facility] Covid-19 PCR ([facility])on SARS-CoV-2 (COVID-19) RNA KAYLEE+probe Ql (Unsp spec) Not detected Normal NOT DETECTED [facility] Comment on above: Result Comment: This test is not yet approved or cleared by the [place] FDA. When there are no FDA-approved or cleared tests available, and other criteria are met, FDA can make tests available under an emergency access mechanism called an Emergency Use Authorization (EUA). The EUA for this test is supported by the [place] of Health and Human Service's (HHS's) declaration [...] SARS-CoV-2. Performed By: #### C VDTBH #### [facility] [address], [place] [address] Dr. Shayne Roldan DEXA AXIALon 03-01-2022 DEXA AXIAL [facility] Department of Radiology [address] [place] [address] Patient Name: DIANA CHAMPION : 1955 Sex: F Age: Race: White Pt. Location: Patient Status: D Ordered Date: 02/24/2022 1:25:00 PM Completed Date: 03/01/2022 09:46 AM Requesting Provider: CINDA ANTONIO Attending Provider: Report Copy To: Signs & Symptoms: Z78.0 Asymptomatic menopausal state I10 History: Homer Comments: Exam: DEXA AXIAL DEXA AXIAL 03/01/2022 [...] characteristics. Electronically signed: Luzma Fernandez. Transcribed by: [email or web address], User Resident: Electronically Signed by: LUZMA FERNANDEZ @ 03/02/2022 01:07 PM Normal The [facility] SCOLIOSIS 2 [facility] 02-24-2022 SCOLIOSIS 2 [facility] Department of Radiology [address] [place] [id number] Patient Name: DIANA CHAMPION : 1955 Sex: F Age: Race: White Pt. Location: Patient Status: D Ordered Date: 02/24/2022 1:25:00 PM Completed Date: 02/24/2022 01:44 PM Requesting Provider: CINDA ANTONIO Attending Provider: Report Copy To: Signs & Symptoms: M43.10 Spondylolisthesis, site unspecified I10 History: Comments: Views (X-RAY, SCOLIOSIS): PA, Lateral evaluate Exam: SCOLIOSIS 2 [facility] Scoliosis. Worsening pain. Frontal and lateral thoracolumbar spine IMPRESSION: 1. Diffuse disc disease and facet arthritis. Right convex mid lumbar curvature measuring 16 degrees. Interbody fusion hardware lower lumbar spine. Electronically signed: Hugo Lynn. Transcribed by: [email or web address], User Resident: Electronically Signed by: HUGO LYNN @ 02/26/2022 11:07 AM Normal The [facility] Comment on above: Order Comment: Views (X-RAY, SCOLIOSIS): PA, Lateral evaluate CT LUMBAR SPINE W CONTRASTon 01-24-2022 CT LUMBAR SPINE W CONTRAST [facility] Department of Radiology [address] [place] [id number] Patient Name: DIANA CHAMPION : 1955 [...] L1-2. Electronically signed: Gaurang Lawrence. Transcribed by: [email or web address], User Resident: Electronically Signed by: GAURANG LAWRENCE @ 01/26/2022 08:58 AM Normal The [facility] Comment on above: Order Comment: , CT MYELOGRAM>PAPER WORK IN CHART LUMBAR MYELOGRAMon 2 LUMBAR MYELOGRAM [facility] Department of Radiology [address] [place] [phone] Patient Name: DIANA CHAMPION : 1955 Sex: F Age: Race: White Pt. Location: Patient Status: O Ordered Date: 01/09/2022 9:00:00 AM Completed Date: 01/24/2022 02:37 PM Requesting Provider: JOO BRAVO Attending Provider: JOO BRAVO Report Copy To: UNKNOWN, PHYSICIAN Signs & Symptoms: M54.16 Radiculopathy, lumbar region I10 History: Jessica Is patient on thinners? 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 Consent was obtained. Timeout: [place] protocol timeout verification performed. PROCEDURE: Estimated blood [...] report. Electronically signed: Greg Marlow. Transcribed by: [email or web address], User Resident: DEBBIE JI Electronically Signed by: GREG MARLOW @ 01/24/2022 04:07 PM I personally read this/these film(s) with this resident Normal The [facility] Comment on above: Order Comment: , CT MYELOGRAM> PAPER WORK SCANNED IN CHART , CT MYELOGRAM> PAPER WORK SCANNED IN CHART , , , Ordering Provider - JOO BRAVO MD , HIP LEFT 1 OR 2 VWS WITH PEL VISon 01-06-2022 HIP LEFT 1 OR 2 VWS WITH PELVIS [facility] Department of Radiology [address] [place] [id number] Patient Name: DIANA CHAMPION : 1955 Sex: F Age: Race: White Pt. Location: Patient Status: D Ordered Date: 12/21/2021 10:45:00 AM Completed Date: 01/06/2022 01:24 PM Requesting Provider: JOO BRAVO Attending Provider: JOO BRAVO Report Copy To: Signs & Symptoms: Z96.642 Presence of left artificial hip joint I10 History: Homer Comments: Evaluate Exam: HIP LEFT 1 OR 2 VWS WITH PELVIS HIP LEFT 1 OR 2 VWS WITH PELVIS HISTORY: Hip replacement, follow-up. COMPARISON: None. IMPRESSION: 1. Redemonstrated left hip prosthesis without visible complication. 2. Advanced right hip arthritis without significant change with advanced joint space narrowing. Unchanged lumbosacral fusion hardware. Electronically signed: Joe Matthew. Transcribed by: [email or web address], User Resident: Electronically Signed by: JOE MATTHEW @ 01/09/2022 04:45 PM Normal The [facility] Comment on above: Order Comment: Evalu ate Vital Signs Date Time Vital Sign Value Performing Clinician Facility 03-14-2024 10:30-0400 Body height 165.1 cm Steph Josie Work Phone: [phone] [place] [address] 03-14-2024 10:30-0400 Body mass index (BMI) [Ratio] 39 kg/m2 Steph Josie Work Phone: [phone] [place] [address] 03-14-2024 10:30-0400 Body temperature 97.4 [degF] Steph Galindo Work Phone: [facility] 03-14-2024 10:30-0400 Body weight 106.36 kg Steph Galindo Work Phone: [facility] 03-14-2024 10:30-0400 Diastolic blood pressure 80 mm[Hg] Steph Josie Work Phone: [facility] 03-14-2024 10:30-0400 Heart rate 77 /min Steph Josie Work Phone: [facility] 03-14-2024 10:30-0400 Inhaled oxygen flow rate 3 L/min Steph Josie Work Phone: [facility] 03-14-2024 10:30-0400 Respiratory rate 20 /min Steph Collier Work Phone: [facility] 03-14-2024 10:30-0400 SaO2% (BldA) [Mass fraction] 92 % Steph Amira Work Phone: [facility] 03-14-2024 10:30-0400 Systolic blood pressure 120 mm[Hg] Steph Collier Work Phone: [facility] 08-17-2023 09:20-0400 Body height 165.1 cm Herberth Joana Other [employer] Other 08-17-2023 09:20-0400 Body mass index (BMI) [Ratio] 38.1 kg/m2 Herberth Joana Other [employer] Other 08-17-2023 09:20-0400 Body temperature 98.8 [degF] Herberth Joana Other [employer] Other 08-17-2023 09:20-0400 Body weight 103.87 kg Herberth Joana Other [employer] Other 08-17-2023 09:20-0400 Diastolic blood pressure 85 mm[Hg] Herberth Joana Other [employer] Other 08-17-2023 09:20-0400 Respiratory rate 18 /min Herberth Joana Other [employer] Other 08-17-2023 09:20-0400 SaO2% (BldA) [Mass fraction] 94 % Herberth Joana Other [employer] Other 08-17-2023 09:20-0400 Systolic blood pressure 151 mm[Hg] Herberth Joana Other [employer] Other 03-02-2023 10:00-0400 Body height 165.1 cm Herberth Joana Other [employer] Other 03-02-2023 10:00-0400 Body mass index (BMI) [Ratio] 37.29 kg/m2 Herberth Joana Other [employer] Other 03-02-2023 10:00-0400 Body temperature 98.9 [degF] Herberth Joana Other [employer] Other 03-02-2023 10:00-0400 Body weight 101.65 kg Herberth Joana Other [employer] Other 03-02-2023 10:00-0400 Diastolic blood pressure 76 mm[Hg] Herberth Joana Other [employer] Other 03-02-2023 10:00-0400 Respiratory rate 20 /min Herberth Joana Other [employer] Other 03-02-2023 10:00-0400 SaO2% (BldA) [Mass fraction] 96 % Herberth Joana Other [employer] Other 03-02-2023 10:00-0400 Systolic blood pressure 136 mm[Hg] Herberth Joana Other [employer] Other 12-08-2022 09:30-0500 Diastolic blood pressure 59 mm[Hg] MD Shaikh Ohara Work Phone: [facility] 12-08-2022 09:30-0500 Heart rate 55 /min MD Shaikh Ohara Work Phone: [facility] 12-08-2022 09:30-0500 Respiratory rate 16 /min MD Shaikh Ohara Work Phone: [facility] 12-08-2022 09:30-0500 SaO2% (BldA) [Mass fraction] 96 % MD Shaikh Ohara Work Phone: [facility] 12-08-2022 09:30-0500 Systolic blood pressure 112 mm[Hg] MD Shaikh Ohara Work Phone: [facility] 12-08-2022 06:54-0500 Body height 162.56 cm MD Shaikh Ohara Work Phone: [facility] 12-08-2022 06:54-0500 Body temperature 98.2 [degF] MD Shaikh Ohara Work Phone: [facility] 12-08-2022 06:54-0500 Body weight 104.32 kg MD Shaikh Ohara Work Phone: [facility] 08-09-2022 11:00-0400 Body height 165.1 cm Herberth Joana Other [employer] Other 08-09-2022 11:00-0400 Body mass index (BMI) [Ratio] 37.87 kg/m2 Herberth Joana Other [employer] Other 08-09-2022 11:00-0400 Body temperature 97.2 [degF] Herberth Joana Other [employer] Other 08-09-2022 11:00-0400 Body weight 103.24 kg Herberth Joana Other [employer] Other 08-09-2022 11:00-0400 Diastolic blood pressure 88 mm[Hg] Herberth Joana Other [employer] Other 08-09-2022 11:00-0400 Respiratory rate 20 /min Herberth Joana Other [employer] Other 08-09-2022 11:00-0400 SaO2% (BldA) [Mass fraction] 95 % Herberth Joana Other [employer] Other 08-09-2022 11:00-0400 Systolic blood pressure 133 mm[Hg] Herberth Joana Other [employer] Other 11-17-2021 10:40-0500 Body height 165.1 cm Herberth Joana Other [employer] Other 11-17-2021 10:40-0500 Body mass index (BMI) [Ratio] 37.97 kg/m2 Herberth Joana Other [employer] Other 11-17-2021 10:40-0500 Body temperature 97.8 [degF] Herberth Joana Other [employer] Other 11-17-2021 10:40-0500 Body weight 103.51 kg Herberth Joana Other [employer] Other 11-17-2021 10:40-0500 Diastolic blood pressure 70 mm[Hg] Herberth Joana Other [employer] Other 11-17-2021 10:40-0500 Respiratory rate 18 /min Herberth Joana Other [employer] Other 11-17-2021 10:40-0500 SaO2% (BldA) [Mass fraction] 94 % Herberth Joana Other [employer] Other 11-17-2021 10:40-0500 Systolic blood pressure 130 mm[Hg] Herberth Rivera Other [employer] Other 08-30-2021 13:15-0400 Body height 165.1 cm Rena Ginty Other [employer] Other 08-30-2021 13:15-0400 Body mass index (BMI) [Ratio] 36.61 kg/m2 Rena Ginty Other [employer] Other 08-30-2021 13:15-0400 Body temperature 98.7 [degF] Rena Ginty Other [employer] Other 08-30-2021 13:15-0400 Body weight 99.79 kg Rena Ginty Other [employer] Other 08-30-2021 13:15-0400 SaO2% (BldA) [Mass fraction] 90 % Rena Ginty Other [employer] Other Encounters Encounter Date Encounter Type Care Provider Facility Start: 05-13-2024 End: 05-13-2024 ambulatory [facility] Start: 05-06-2024 End: 05-06-2024 ambulatory Jayshree Vargas [...] End: 03-14-2024 ambulatory Steph Collier Work Phone: [facility] Work Phone: Start: 03-14-2024 End: 03-14-2024 Patient encounter procedure Steph Galindo Work Phone: [facility] Work Phone: Start: 03-06-2024 Non-patient / Non-visit Steph Amira Work Phone[facility] Work Phone: Start: 02-26-2024 End: [...] End: 10-09-2023 ambulatory Jayshree Vargas MD Facility:[facility] Start: 10-04-2023 End: 10-04-2023 ambulatory SHAIKH LEV Not Available Start: 09-07-2023 End: 09-07-2023 ambulatory Herberth Joana Other [employer] Other Start: 09-07-2023 Telephone encounter Herberth Joana [facility] Start: 08-28-2023 End: 08-28-2023 ambulatory Herberth Joana Other [employer] Other Start: 08-28-2023 Telephone encounter Herberth Joana [facility] Start: 08-21-2023 End: 08-21-2023 ambulatory Jayshree Vargas MD Facility: [facility] Start: 08-17-2023 End: 08-17-2023 ambulatory Herberth Joana Other [employer] Other Start: 08-17-2023 Office outpatient visit 25 minutes Herberth Joana [facility] Start: 04-04-2023 End: 04-04-2023 ambulatory SHAIKH Dimitry OHARA Facility:[facility] Start: 03-24-2023 End: 03-25-[address] STEPH GRANADOS Facility:[facility] Start: 03-02-2023 End: 03-02-2023 ambulatory Herberth Joana Other [employer] Other Start: 03-02-2023 Office outpatient visit 25 minutes Herberth Joana [facility] Start: 02-25-2023 End: 02-26-2023 ambulatory HERBERTH JOANA Facility:[facility] Start: 02-22-2023 End: 02-23-2023 ambulatory BO MCCLAIN . Facility:[facility] Start: 12-15-2022 End: 12-16-[address] JACK HALL . Facility:[facility] Start: 12-08-2022 End: 12-08-2022 ambulatory Shaikh Lev Facility:[facility] Start: 12-08-2022 End: 12-08-2022 Admission to same day surgery center MD Shaikh Ohara Work Phone: [facility] Work Phone: Start: 12-08-2022 End: 12-08-2022 ambulatory MD Shaikh Ohara Work Phone: [facility] Work Phone: Start: 11-11-2022 End: 11-11-[address] JACK HALL . Facility:[facility] Start: 11-09-2022 End: 11-09-2022 ambulatory Aziz Bakhous Other [employer] Other Start: 11-09-2022 Telephone encounter Azkatherine Gonzalezs [facility] Start: 08-19-2022 End: 08-20-2022 ambulatory HERBERTH JOANA Facility:[facility] Start: 08-09-2022 End: 08-09-2022 ambulatory Herberth Joana Other [employer] Other Start: 08-09-2022 Office outpatient visit 10 minutes Herberth Joana [facility] Start: 08-09-2022 Telephone encounter Herberth Joana [facility] Start: 08-05-2022 Telephone encounter Herberth Joana [facility] Start: 08-05-2022 End: 08-06-2022 ambulatory HERBERTH JOANA [place] [employer] Other Start: 07-08-2022 End: 07-08-2022 ambulatory Gato Domingo Other [employer] Other Start: 07-08-2022 Telephone encounter Gato Cesar ck [facility] Start: 07-05-2022 End: 07-06-2022 ambulatory SHAIKH Dimitry OHARA Facility:[facility] Start: 06-08-2022 End: 06-09-2022 ambulatory SHAIKH Dimitry OHARA Facility:[facility] Start: 06-07-2022 End: 06-07-2022 ambulatory SHAIKH Dimitry OHARA Facility:[facility] Start: 01-24-2022 End: 01-25-2022 ambulatory PHYSICIAN UNKNOWN Facility:[facility] Start: 11-17-2021 End: 11-17-2021 ambulatory Herberth Joana Other [employer] Other Start: 11-17-2021 Office outpatient visit 15 minutes Herberth Joana [facility] Start: 08-30-2021 Office outpatient visit 15 minutes Rena Ginty [facility] Start: 09-11-2020 End: 09-11-2020 Chart abstracting Miguelito Buck Work Phone: Hematology/Oncology Start: 09-11-2020 End: 09-11-2020 Patient encounter procedure External Provider [facility] Start: 09-11-2020 Results Only External Provider Exter nal-[facility] Start: 09-30-2019 End: 09-30-2019 Patient encounter procedure [facility] [place] Start: 07-07-2017 End: 07-07-2017 Admission to day surgery [facility] Start: 05-24-2004 Evaluation and management of inpatient [facility] [place] Start: 04-26-2004 Evaluation and management of inpatient [facility] [place] Procedures Date Procedure Procedure Detail Performing Clinician Start: 12-08-2022 Colonoscopy MD Shaikh Ohara Work Phone: Start: 09-11-2020 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 Pot Sander al Provider Start: 09-11-2020 EXTERNAL LAB External P rovider Start: 09-11-2020 EXTERNAL PROCEDURE Exte rnal Provider Start: 09-30-2019 Ultrasonography of b ilateral kidneys Steph Collier Plan of Treatment Date Care Activity Detail Author Start: 12-08-2022 [facility] Start: 07-07-2020 Influenza vaccination INFLUENZA (#1) [facility] Start: 2006 SHINGRIX VACCINE (1 of 2) SHINGRIX VACCINE (1 of 2) [facility] Start: 2006 Tuberculosis screening COLORECTAL CANCER SCREENING,SEE MODIFIER [facility] Start: 2001 DIABETES SCREEN DIABETES SCREEN [facility] Start: 2001 LIPID SCREEN LIPID SCREEN [facility] Start: 1996 Mammography MAMMOGRAM [facility] Start: 1986 HPV TESTING HPV TESTING [facility] Start: 1977 PAP TESTING PAP TESTING [facility] Start: 1975 Urine microalbumin profile DTAP,TDAP,TD (1 - Tdap) [facility] Start: 1974 HEPATITIS C SCREENING HEPATITIS C SCREENING [facility] Start: 1974 HIV SCREENING HIV SCREENING [facility] Patient Education Colon Polypect shahram Hemorrhoids (DC) Diverticulosis (DC) [facility] Immun[facility] Immunization Date Immunization Notes Care Provider Henrietta charles 07-18-2018 Depo-Medrol 40 mg Rena Gint y Other [employer] Other 01-31-2018 Depo-Medrol 40 mg Rena Gint y Other [employer] Other 08-09-2017 influenza virus vaccine, unspecified formulation Steph Collier Work Phone: [facility] 08-09-2017 influenza, seasonal, injectable, preservative free Rena Ginty Other [employer] Other Payers Date Payer Category Payer Unknown 2022 Self-pay [id number] 2021 Medicare [id number] 2020 Medicaid [id number] 2019 Medicaid MEDICAID [facility] MEDICAID [id number] 2019-Present Medicaid [id number] 2016 Medicare MEDICARE MEDICAR E A AND B [id number] 2016-Present [place] Medicare [id number] 1959 Unknown [id number] 1956 Unknown [id number] 2.16.840.1.872591.3.579.2.647 1956 Unknown [id number] 2.16.840.1.497032.3.579.2.593 1956 Unknown [id number] 2.16.840.1.346939.3.579.2.593 1956 Unknown [id number] 2.16.840.1.419345.3.579.2.593 1956 Unknown [id number] 2.16.840.1.950890.3.579.2.593 1956 Unknown [id number] 2.16.840.1.594840.3.579.2.593 1956 Unknown [id number] 2.16.840.1.327618.3.579.2.593 1956 Unknown [id number] 2.16.840.1.694379.3.579.2.593 1956 Unknown [id number] 2.16.840.1.199273.3.579.2.593 1956 Unknown [id number] 2.16.840.1.611518.3.579.2.593 1956 Unknown [id number] 2.16.840.1.399081.3.579.2.593 1956 Unknown [id number] 2.16.840.1.320107.3.579.2.593 1956 Unknown [id number] 2.16.840.1.939951.3.579.2.1259 1956 Unknown [id number] 2.16.840.1.493939.3.579.2.1258 1956 Unknown [id number] 2.16.840.1.850011.3.579.2.1258 1956 Unknown [id number] 2.16.840.1.089711.3.579.2.1258 1956 Unknown [id number] 2.16.840.1.945338.3.579.2.1258 1956 Unknown [id number] 2.16.840.1.648180.3.579.2.1258 1956 Unknown [id number] 2.16.840.1.148807.3.579.2.1258 1956 Unknown [id number] 2.16.840.1.446975.3.579.2.1258 1956 Unknown [id number] 2.16.840.1.058307.3.579.2.1258 1956 Unknown [id number] 2.16.840.1.030085.3.579.2.1258 1956 Unknown [id number] 2.16.840.1.449209.3.579.2.1258 1956 Unknown [id number] 2.16.840.1.978511.3.579.2. 1956 Unknown [id number] 2.16.840.1.365012.3.579.2. 1956 Unknown [id number] 2.16.840.1.397558.3.579.2. 1956 Unknown [id number] 2.16.840.1.367603.3.579.2. 1956 Unknown [id number] 2.16.840.1.061961.3.579.2. 1956 Unknown [id number] 2.16.840.1.556717.3.579.2.196 1956 Unknown [id number] 2.16.840.1.927288.3.579.2.196 Medicare [id number] Unknown HCAP/HFA/FAP Active [id number] Unknown [id number] 2.16.840.1.762745.3.579.2.531 Social History Date Type Detail Facility Tobacco smoking stat [facility] Unknown if ever smoked [facility] Start: 1955 Sex Assigned At Female F [facility] Start: 09-11-2020 End: 03-14-2024 Tobacco smoking status DCIS Never smoker [facility] Start: 09-11-2020 Tobacco use and exposure Never used [facility] Start: 09-11-2020 Alcohol intake Lifetime non-d my (finding) [facility] Start: 09-11-2020 History SDOH Alcohol Frequency 1 [facility] Sex Assigned At Not on file [facility] Sex Assigned At Sex Assigned At [facility] [employer] Other Goals Date Patient Goal Desired Activity /State Clinical Notes 08-30-2021 to 05-13-2024 Note Date & Type Note Facility 05-13-2024 Note [facility] Cardiology Clinic Note Chief Complaint: Patient here for 1 year follow up CAD and hypertension. She was recently discharged from [facility] for Covid-19. She says hydrochlorothiazide was [...] breath since then. She has seen her exercise equipment specialist. Her chest pain is noncardiac. She has [...] a past medical history of Asthma, Cancer ([facility]), COPD (chronic obstructive pulmonary disease) ([facility]), Coronary artery disease, GERD (gastroesophageal reflux disease), [...] mouth every other day., Disp: , Rfl: [id number] 100-62.5-25 mcg blister with device, , Disp: [...] a (more content not included)... [facility] 09-07-2023 Evaluation note Encounter Date Diagnosis Assessment Notes Sep, Hypomagnesemia (ICD-10 - E83.42) [employer] Other 10-23-2023 Evaluation note* Encounter Date Diagnosis Assessment Notes Treatment Notes Treatment Clinical Notes Aug, Nico garsia kid I-IV (ICD-10 - I12.9) [employer] Other 10-12-2023 Evaluation note* Encounter Date Diagnosis [...] PPI induced GI losses. Continue oral Magnesium [employer] Other 05-19-2023 NotePROCEDURE: XR HIP RT 2 3V W PELVIS HISTORY: Pain in right hip joint , chronic COMPARISON: XR L-spine 02/26/2019, XR left hip with pelvis 03/11/2017 FINDINGS: BONES:Complete loss of the right hip joint space with iqxm-ad-ystl articulation, subchondral sclerosis and cysts, and large periarticular degenerative osteophytes. No fracture or dislocation. Left hip replacement. Mechanical fusion of L5-S1 and moderate dextroscoliosis of lumbar spine. SOFT TISSUES:No visible soft tissue swelling. EFFUSION:None visible. OTHER: Negative. IMPRESSION: 1. Marked degenerative joint disease of the right hip; progressed since prior study. 2. Stable surgical changes. Electronically authenticated by: STEPH GRANADOS Date: 2023-03-24 12:55[facility]04-27-2023 Evaluation note* Encounter Date Diagnosis Assessment [...] PPI induced GI losses. Continue oral Magnesium [employer] Other [facility]* Encounter Date Diagnosis Assessment Notes Treatment Notes Treatment Clinical Notes Nov, Hypokalemia (ICD-10 - E87.6) Nov, Hypomagnesemia (ICD-10 - E83.42) [employer] Other 10-04-2022 Evaluation note* Encounter Date Diagnosis [...] office does not accept her new insurance. [employer] Other 09-02-2022 Evaluation note* Encounter Date Diagnosis Assessment Notes Treatment Notes Treatment Clinical Notes Jul, History of colon cancer (ICD-10 - Z85.038) [employer] Other 01-12-2022 Evaluation note* Encounter Date Diagnosis [...] potassium wasting. I have prescribed oral potassium. [employer] Other 10-25-2021 Evaluation note* Encounter Date Diagnosis [...] [facility] Care At Home document [facility] [employer] Other Evaluation noteNo InformationNortP[facility] [employer] Other Evaluation note* Diagnosis Onset Date Resolution Status History of colon cancer acut e [facility] Work Phone: Evaluation note* Diagnosis Onset Date Resolution Status Hypokalemia acute Hypomagnesemia acute Stage 3 chronic kidney disease acute COVID noneactive Pneumonia noneactive [facility] Work Phone: History general Narrative - [...] IN 08/2019 Hospitalization History HIP REVISION 03/2020 [employer] Other History general Narrative - Reported* Type [...] Hospitalization History COVID X 2 WEEKS 04/2023 [employer] Other Hospital Discharge instructions Additional Instructions DISCHARGE [...] if you have any problems. -Office number [phone] Work Phone: Advance Directives No Advanced [...] or prosecute any alcohol or drug abuse patient.[facility] the event this information is protected by the Federal Confidentiality of Alcohol and Drug Abuse Patient Records regulations: The Federal rules restrict any use of the information to criminally investigate or prosecute any alcohol or drug abuse patient.[facility] the event this information is protected by the Federal Confidentiality of Alcohol and Drug Abuse Patient Records regulations: The Federal rules restrict any use of the information to criminally investigate or prosecute any alcohol or drug abuse patient.[facility] the event this information is protected by the Federal Confidentiality of Alcohol and Drug Abuse Patient Records regulations: The Federal rules restrict any use of the information to criminally investigate or prosecute any alcohol or drug abuse patient.[facility] INFORMATION SOURCE (unrecogn ized section and content) DATE CREATED AUTHOR 03/03/2022 [facility] DATE CREATED AUTHOR AUTHOR'S ORGANIZ ATION 04/17/[address] [facility] DATE CREATED AUTHOR AUTHOR'S ORGANIZ ATION 06/07/2023 [facility] DATE CREATED AUTHOR AUTHOR'S ORGANIZ ATION 04/18/2024 [facility] DATE CREATED AUTHOR AUTHOR'S ORGANIZ ATION 05/09/2024 [facility] DATE CREATED AUTHOR AUTHOR'S ORGANIZ ATION 05/13/2024 [facility] REASON FOR VISIT (unrecogniz ed section and [...] BE BASED ON THE PRIMARY CLINICAL RECORDS. [employer] [facility]. provides no warranty or guarantee of the accuracy or completeness of information in this document.
[2024-06-06] MEDS: TRAZODONE HCL 50 MG TABLET 100 MG PO (22:15)
[2024-06-06] MEDS: PREGABALIN 75 MG CAPSULE PO (22:15)
[2024-06-06] MEDS: BACLOFEN 10 MG TABLET PO (22:15)
[2024-06-06] MEDS: PRAMIPEXOLE 0.125 MG TABLET 0.25 MG PO (22:15)
[2024-06-07] VITALS (27 sets, daily range): BP systolic 115–150; BP diastolic 63–80; PULSE 58–82; TEMP 36.4–36.8; O2SAT 86–99
[2024-06-07] MEDS: GUAIFENESIN 200 MG/DEXTROMETHORPHAN 20 MG 10 ML UNIT DOSE CUP PO ×2 (00:10→11:53)
[2024-06-07] MEDS: METHYLPREDNISOLONE SOD SUCC PF 40 MG/ML VIAL IVP ×4 (00:10→18:50)
[2024-06-07] MEDS: IPRATROPIUM/ALBUTEROL SULFATE 3 ML AMPUL.NEB IH ×6 (00:48→23:41)
--- NOTE | 2024-06-07 01:50 | RESP.RT ---
Placed patient on vapotherm 40 lpm and 70% FiO2
[2024-06-07] MEDS: BACLOFEN 10 MG TABLET PO ×3 (04:12→21:21)
[2024-06-07 06:16] LABS: Basophils Percent Auto 0.1 % (0.2-2.0); Hematocrit 36.4 % (36.0-48.0); Hemoglobin 11.7 g/dL (12.0-16.0); Immature Granulocytes Abs Auto 0.05 10^3/uL (0.00-0.03); Immature Granulocytes Pct Auto 0.7 % (0.0-0.5); Lymphocytes Absolute Auto 0.5 10^3/uL (1.2-3.8); Lymphocytes Percent Auto 7.6 % (20.5-60.0); Mean Corpuscular HGB Conc 32.1 g/dL (29.9-35.2); Mean Corpuscular Hemoglobin 30.2 pg (26.7-34.0); Mean Corpuscular Volume 93.8 fL (81.0-99.0); Mean Platelet Volume 9.4 fL (9.5-13.5); Monocytes Percent Auto 0.4 % (1.7-12.0); Neutrophils Absolute Auto 6.3 10^3/uL (1.4-6.5); Neutrophils Percent Auto 91.2 % (43.0-75.0); Platelet Count 266 10^3/uL (150-450); Red Blood Count 3.88 10^6/uL (4.20-5.40); Red Cell Distribution Width 13.2 % (11.0-15.0)
[2024-06-07 06:39] LABS: Alanine Aminotransferase 14 U/L (14-59); Albumin Globulin Ratio 0.8; Albumin Level 2.8 g/dL (3.4-5.0); Alkaline Phosphatase 80 U/L (46-116); Anion Gap 10.6; Aspartate Amino Transferase 11 U/L (15-37); BUN Creatinine Ratio 9.1; Bilirubin Total 0.2 mg/dL (0.2-1.0); Calcium 8.6 mg/dL (8.5-10.1); Carbon Dioxide 32.3 mmol/L (21.0-32.0); Chloride 103 mmol/L (98-107); Estimated GFR (African America 60 (>=60); Estimated GFR (Non-African Ame 50 (>=60); Globulin 3.7 g/dL; Glucose 197 mg/dL (74-106); Magnesium 1.7 mg/dL (1.8-2.4); Phosphorus 2.5 mg/dL (2.6-4.7); Potassium 3.9 mmol/L (3.5-5.1); Sodium 142 mmol/L (136-145); Total Protein 6.5 g/dL (6.4-8.2)
--- NOTE | 2024-06-07 09:14 | CT_ITS ---
[address] [address] Patient Name: JHONATAN MONTOYA MRN: [id number] date: 1955 Sex: F Assigned Patient Location: [place] Current Patient Location: [place] Accession/Order Number: [id number] Exam Date: 06/07/2024 11:20 Report Date: 06/08/2024 04:48 At the request of: SHAIKH LUCITA Procedure: CT chest wo con EXAMINATION: CT chest wo con HISTORY: Respiratory failure COMPARISON: CT chest 04/11/2024 TECHNIQUE: Axial, Coronal, and Sagittal images were created without the administration of IV contrast material. Dose reduction techniques were achieved by using automated exposure control and/or adjustment of mA and/or kV according to patient size and/or use of iterative reconstruction technique. FINDINGS: LUNGS: Scattered mild atelectasis or possibly infiltrates, predominantly within the posterior lung bases. No appreciable bronchial wall thickening or mucous plugging. PLEURA: No mass, effusion, or pneumothorax. VASCULATURE: No abnormality. RENAN: No mass or pathologic adenopathy. MEDIASTINUM: No mass or pathologic adenopathy. CARDIAC: No enlargement, pericardial thickening, or pericardial effusion. Coronary Artery calcifications: Coronary calcifications are absent. AORTA: No aneurysm or dissection. CHEST WALL: No mass or axillary adenopathy BONES: No bone lesion or fracture. LIMITED ABDOMEN: No suspicious findings. Limited images of the upper abdomen. OTHER: Negative. CT/CT chest wo con IMPRESSION: 1. Mild atelectasis, or possibly infiltrates, predominantly within the posterior lung bases bilaterally; slightly improved compared to prior study. Electronically authenticated by: STEPH GRANADOS Date: 06/08/2024 04:48
--- NOTE | 2024-06-07 09:27 | P.HP_ITS ---
HPI H&P: HPI History of Present Illness Chief complaint: CONGESTION-ON O2, DOC SENT OVER COPD exacerbation Narrative: 68-year-old female with severe persistent asthma and COPD presented to ER last night with worsening shortness of breath, cough, chest congestion for 1 week. He denies fever, nausea, vomiting, chest pain, palpitations. She tried to stay home and get better with rest and home nebulization but continued to have worsening of her symptoms. Patient uses 2 to 3 L of oxygen at baseline and was hypoxic upon arrival with pulse ox down to 86% and overnight required increasing oxygen and is now on high flow oxygen and requiring 80% FiO2. She appears short of breath during conversation and looks tired and lethargic. She does not feel any better compared to when she came to ED. Patient has had multiple episodes of COPD/asthma exacerbation. She has required prolonged hospital admission and repeated courses of oral steroids. Opioid HPI Opioid Management Most Recent Pain and Opioid Data: Last Pain Scale 4 05/06/24 09:34 Last Pain Intensity 0 02/05/24 08:27 Last Pain Assessment 06/07/24 08:00 Last ORT Total Score 0 06/06/24 21:18 Last ORT Risk Category Low Risk 06/06/24 21:18 Review of Systems ROS Status of ROS 10 or more systems reviewed and unremark able except as noted in history and below [facility] Medical History Hypomagnesemia ?E83.42 - Hypomagnesemia (ICD-10) Acute hypokalemia ?E87.6 - Hypokalemia (ICD-10) Pneumonia ?J18.9 - Pneumonia, unspecified organism (ICD-10) Acute exacerbation of chronic obstructive pulmonary disease ?J44.1 - Chronic obstructive pulmonary disease with (acute) exacerbation (ICD-10) CAD (coronary artery disease) ?I25.10 - Atherosclerotic heart disease of red devil coronary artery without angina pectoris (ICD-10) Chronic heart failure with preserved ejection fraction (HFpEF) ?I50.32 - Chronic diastolic (congestive) heart failure (ICD-10) Hypertension ?I10 - Essential (primary) hypertension (ICD-10) Myofascial pain ?M79.18 - Myalgia, other site (ICD-10) Greater trochanteric bursitis ?M70.60 - Trochanteric bursitis, unspecified hip (ICD-10) Osteoarthritis of right hip ?M16.11 - Unilateral primary osteoarthritis, right hip (ICD-10) Lumbar spondylosis ?M47.816 - Spondylosis without myelopathy or radiculopathy, lumbar region (ICD-10) Lumbar postlaminectomy syndrome ?M96.1 - Postlaminectomy syndrome, not elsewhere classified (ICD-10) Lumbar stenosis with neurogenic claudication ?M48.062 - Spinal stenosis, lumbar region with neurogenic claudication (ICD- 10) Depression ?F32.A - Depression, unspecified (ICD-10) Chronic low back pain ?M54.50 - Low back pain, unspecified (ICD-10) ?G89.29 - Other chronic pain (ICD-10) Hypoxia ?R09.02 - Hypoxemia (ICD-10) Heart murmur ?R01.1 - Cardiac murmur, unspecified (ICD-10) Chronic obstructive pulmonary disease ?J44.9 - Chronic obstructive pulmonary disease, unspecified (ICD-10) Asthma ?J45.909 - Unspecified asthma, uncomplicated (ICD-10) Surgical History Status post hip surgery ?Z98.890 - Other specified postprocedural states (ICD-10) H/O foot surgery ?Z98.890 - Other specified postprocedural states (ICD-10) H/O tubal ligation ?Z98.51 - Tubal ligation status (ICD-10) History of lumbar fusion ?Z98.1 - Arthrodesis status (ICD-10) Family History Mother Family history of CHF (congestive heart failure) Family history of hypertension Father Family history of hypertension Family history of myocardial infarction Social History Within the past year, how often did you have a drink containing alcohol: never Score interpretation: A score less than 3 is consistent with normal alcohol consumption. Smoking status: Never smoker Non-prescribed substance use: denies use Previous occupational history: retired Highest level of school completed/degree received: Associate degree: occupational, technical, vocational program Are you now , , , , never or living with a partner: In a typical week, how many times do you talk on the telephone with family, friends, or neighbors: 3 or more times per week How often do you get together with friends or relatives: 3 or more times per week How often do you attend restoration or jainism services: 4 or more times per year Do you belong to any clubs or organizations such as restoration groups unions, [employer] or athletic groups, or school groups: no Total score: 2 Score interpretation: A score of greater than or equal to 2 indicates the lowest level of social isolation. Little interest or pleasure in doing things: not at all Feeling down, depressed, or hopeless: not at all Feel stressed/tense/nervous/anxious/difficulty sleeping: not at all Do you think of yourself as: straight/heterosexual Gender Identity: female Meds Home Medications and Allergies Home Medications ?Medication ?Instructions ?Recorded ?Confirmed ?Type fluticasone fur. 200 mcg-umeclid 1 inh inhalation Q24H COPD 04/10/23 06/06/24 History 62.5 mcg-vilant 25 mcg inhalat.powder (Trelegy Ellipta) magnesium oxide 400 mg (241.3 mg 400 mg PO DAILY 04/10/23 06/06/24 History magnesium) tablet omeprazole 20 mg capsule,delayed 20 mg PO BID 04/10/23 06/06/24 History release montelukast 10 mg tablet 10 mg PO DAILY 09/14/23 06/06/24 History pramipexole 0.25 mg tablet 0.25 mg PO QPM 09/14/23 06/06/24 History (Mirapex) paroxetine HCl 30 mg tablet 30 mg PO QDAY 11/25/23 06/06/24 History pregabalin 75 mg capsule 75 mg PO BID 11/25/23 06/06/24 History solifenacin 10 mg tablet 10 mg PO QDAY 11/25/23 06/06/24 History trazodone 100 mg tablet 100 mg PO .qhs 11/25/23 06/06/24 History baclofen 10 mg tablet 10 mg PO Q8H 02/03/24 06/06/24 History albuterol sulfate 2.5 mg/3 mL 2.5 mg continuous nebulization Q4H 06/06/24 06/06/24 History (0.083 %) solution for nebulization PRN shortness of breath or wheezing Allergies Allergy/AdvReac Type Severity Reaction Status Date / Time No Known Drug Allergies Allergy Verified 06/06/24 18:27 Exam Constitutional Vital Signs, click to edit/add: Last Vital Signs Temp 97.6 F 06/07/24 03:53 Pulse 66 06/07/24 07:54 Resp 16 06/07/24 04:38 BP 115/63 06/07/24 03:53 Pulse Ox 93 L 06/07/24 07:54 O2 Del Method Vapotherm 06/07/24 07:05 O2 Flow Rate 40 06/07/24 07:05 FiO2 80 06/07/24 07:05 Documenting provider has reviewed patient's vital signs: yes Common normals: oriented x3 General appearance: cooperative, lethargic, ill appearing and frail appearing HENMT Common normals: normocephalic and head/scalp atraumatic Head and scalp: normocephalic and atraumatic Eye Common normals: conjunctivae normal and no scleral icterus Conjunctiva: conjunctiva(e) normal Respiratory Common normals: normal respiratory effort Effort & inspection: tachypneic Auscultation: rhonchi and wheezes Cardio Common normals: regular rate, S1 normal heart sound and S2 normal heart sound Rate: regular rate Heart sounds: S1 normal and S2 normal GI Common normals: Normal to inspection, nondistended, normoactive bowel sounds present, soft to palpation, non-tender and no hepatosplenomegaly Palpation: soft and no hepatosplenomegaly Extremity Common normals: no clubbing, cyanosis or edema Neuro Common normals: oriented x3, moves all extremities and no focal motor deficits Psych Common normals: mental status grossly normal, denies hallucinations, denies homicidal ideation and denies suicidal ideation Results Labs Labs: Short CBC 06/06/24 06/07/24 Range/Units 18:38 05:07 WBC 7.6 7.0 (4.0-11.0) 10^3/uL Hgb 12.3 11.7 L (12.0-16.0) g/dL Hct 38.4 36.4 (36.0-48.0) % Plt Count 263 266 (150-450) 10^3/uL BMP 06/06/24 06/07/24 18:38 05:07 Sodium 140 142 Potassium 3.5 3.9 Chloride 102 103 Carbon Dioxide 33.3 H 32.3 H BUN 9.0 10.0 Creatinine 1.17 H 1.10 H Glucose 123 H 197 H Calcium 8.5 8.6 Liver Function 06/07/24 Range/Units 05:07 Total Bilirubin 0.2 (0.2-1.0) mg/dL AST 11 L (15-37) U/L ALT 14 (14-59) U/L Alkaline Phosphatase 80 (46-116) U/L Albumin 2.8 L (3.4-5.0) g/dL Assessment and Plan Assessment and Plan (1) Acute exacerbation of chronic obstructive pulmonary disease (COPD): Assessment and Plan: Patient has severe COPD and severe persistent asthma. Presented with COPD/asthma exacerbation, currently on high flow oxygen and requiring 80% FiO2. No evidence of pneumonia/consolidation on chest x-ray. She reports cough and chest congestion and inability to clear her mucus. I will add a CT chest without contrast to ensure there is no underlying consolidation/pneumonia. Continue with IV Solu-Medrol, inhaled bronchodilators. Wean off oxygen as tolerated. Monitor closely. (2) Severe persistent asthma with exacerbation: Assessment and Plan: Severe persistent asthma with exacerbation. On systemic steroids, inhaled bronchodilators. Wean off oxygen as tolerated. (3) Acute and chronic respiratory failure with hypoxia: Assessment and Plan: Due to COPD/asthma exacerbation. CT chest ordered to rule out underlying pneumonia. Wean off oxygen as tolerated. Continue with systemic steroids, inhaled bronchodilators (4) Chronic heart failure with preserved ejection fraction (HFpEF): Assessment and Plan: More or less euvolemic. Monitor volume status closely while on steroids. (5) Hypertension: Assessment and Plan: Not on any medications currently. Monitor while inpatient. Qualifiers: Hypertension type: primary hypertension Qualified Code(s): I10 - Essential (primary) hypertension (6) Lumbar stenosis with neurogenic claudication: Assessment and Plan: On Lyrica. Continue with same. Monitor. (7) Depression: Assessment and Plan: Mood is stable. Continue with paroxetine and trazodone Qualifiers: Depression Type: major depressive disorder Major depression recurrence: recurrent Active/Remission status: in full remission Qualified Code(s): F33.42 - Major depressive disorder, recurrent, in full remission (8) Severe malnutrition: Assessment and Plan: Severe malnutrition - poor PO intake, chronic disease burden with multiple repeated hospital admissions, no sig weight loss likely because of repeated steroid use, evidence of muscle wasting due to poor PO intake and steroid use. Patient's daily caloric intake is less than 50% of her requirment. Consult nutrition. Plan Patient changed to inpatient status as she has considerable hypoxia and requiring high flow oxygen. She has previous history of prolonged hospital admission because of her underlying chronic lung disease and is anticipated to require inpatient treatment for over 2 to 3 days with systemic steroids, close hemodynamic monitoring.
[2024-06-07] MEDS: PAROXETINE HCL 20 MG TABLET 30 MG PO (09:35)
[2024-06-07] MEDS: SOLIFENACIN SUCCINATE 10 MG TABLET PO (09:35)
[2024-06-07] MEDS: MAGNESIUM OXIDE 400 MG TABLET PO (09:35)
[2024-06-07] MEDS: PREGABALIN 75 MG CAPSULE PO ×2 (09:36→21:21)
[2024-06-07] MEDS: ENOXAPARIN SODIUM 40 MG/0.4 ML SYRINGE SUBQ (09:36)
--- NOTE | 2024-06-07 09:40 | CM.NOTE ---
Rounds made with Dr. Ohara. Diana describes symptoms leading up to ER visit. Dr. Ohara reviews plan of care with Diana. Understanding verbalized.
--- NOTE | 2024-06-07 10:48 | SWNOTE1 ---
JAZMIN met with pt and son in room to discuss dc needs. Pt lives at home with her son. Pt uses a walker at home to get around. Pt also wears 3 liters of oxygen continuous thru [employer]. Pt has [facility] HH coming in currently. Pt's plan is to discharge home and resume HH once she is medically stable. JAZMIN sent updates to [facility]. Updates included face sheet, ED note, H&P, and therapy notes once completed.
--- NOTE | 2024-06-07 10:55 | SWNOTE1 ---
Important Message from [employer] reviewed and discussed with patient. Pt. verbalized understanding and signed the form. Original given to patient and copy placed in patient?s chart.
--- NOTE | 2024-06-07 11:40 | RESP.RT ---
Titrated down to 60%/40L
[2024-06-07 12:31] LABS: Glucometer 239 mg/dL (74-106)
[2024-06-07] MEDS: INSULIN ASPART 300 UNIT/3 ML PEN SUBQ ×3 (13:19→21:21)
--- NOTE | 2024-06-07 16:00 | RESP.RT ---
decreased from 40 LPM, 60% to 40 LPM 50%; SpO2 97%
[2024-06-07 17:03] LABS: Glucometer 235 mg/dL (74-106)
[2024-06-07] MEDS: TRAZODONE HCL 50 MG TABLET 100 MG PO (21:21)
[2024-06-07] MEDS: PRAMIPEXOLE 0.125 MG TABLET 0.25 MG PO (21:21)
[2024-06-07] MEDS: OMEPRAZOLE 20 MG CAPSULE.DR PO (21:21)
[2024-06-07 21:22] LABS: Glucometer 197 mg/dL (74-106)
[2024-06-08] VITALS (26 sets, daily range): BP systolic 104–143; BP diastolic 69–80; PULSE 68–85; TEMP 36.6–36.8; O2SAT 85–97
[2024-06-08] MEDS: METHYLPREDNISOLONE SOD SUCC PF 40 MG/ML VIAL IVP ×4 (01:09→21:32)
[2024-06-08] MEDS: IPRATROPIUM/ALBUTEROL SULFATE 3 ML AMPUL.NEB IH ×6 (03:55→22:08)
[2024-06-08] MEDS: BACLOFEN 10 MG TABLET PO ×3 (04:13→21:32)
[2024-06-08 06:50] LABS: Hematocrit 35.6 % (36.0-48.0); Hemoglobin 11.3 g/dL (12.0-16.0); Mean Corpuscular HGB Conc 31.7 g/dL (29.9-35.2); Mean Corpuscular Hemoglobin 30.4 pg (26.7-34.0); Mean Corpuscular Volume 95.7 fL (81.0-99.0); Mean Platelet Volume 9.3 fL (9.5-13.5); Platelet Count 245 10^3/uL (150-450); Red Blood Count 3.72 10^6/uL (4.20-5.40); Red Cell Distribution Width 13.2 % (11.0-15.0); White Blood Count 7.5 10^3/uL (4.0-11.0)
[2024-06-08 07:14] LABS: Alanine Aminotransferase 16 U/L (14-59); Albumin Globulin Ratio 0.8; Albumin Level 2.8 g/dL (3.4-5.0); Alkaline Phosphatase 78 U/L (46-116); Aspartate Amino Transferase 10 U/L (15-37); BUN Creatinine Ratio 18.3; Bilirubin Total 0.1 mg/dL (0.2-1.0); Calcium 8.5 mg/dL (8.5-10.1); Chloride 104 mmol/L (98-107); Estimated GFR (African America >60 (>=60); Estimated GFR (Non-African Ame 53 (>=60); Globulin 3.5 g/dL; Glucose 207 mg/dL (74-106); Sodium 142 mmol/L (136-145); Total Protein 6.3 g/dL (6.4-8.2)
[2024-06-08 07:29] LABS: Anion Gap 10.3; Carbon Dioxide 31.7 mmol/L (21.0-32.0)
[2024-06-08 07:50] LABS: Monocytes Absolute Manual 0.22 10^3/uL (0.30-0.80); Segmented Neut Absolute Manual 6.67 10^3/uL (1.4-6.5)
[2024-06-08] MEDS: 0.9 % SODIUM CHLORIDE 250 ML 10 ML IV (08:30)
[2024-06-08] MEDS: ENOXAPARIN SODIUM 40 MG/0.4 ML SYRINGE SUBQ (08:33)
[2024-06-08] MEDS: INSULIN ASPART 300 UNIT/3 ML PEN SUBQ ×4 (08:33→21:33)
[2024-06-08] MEDS: PAROXETINE HCL 20 MG TABLET 30 MG PO (08:33)
[2024-06-08] MEDS: PREGABALIN 75 MG CAPSULE PO ×2 (08:34→21:32)
[2024-06-08] MEDS: VANCOMYCIN HCL 1,000 MG in 0.9 % SODIUM CHLORIDE 250 ML 250 MG IV ×2 (08:34→21:32)
[2024-06-08] MEDS: SOLIFENACIN SUCCINATE 10 MG TABLET PO (08:34)
[2024-06-08] MEDS: MAGNESIUM OXIDE 400 MG TABLET PO (08:34)
[2024-06-08] MEDS: MONTELUKAST SODIUM 10 MG TABLET PO (08:34)
[2024-06-08] MEDS: OMEPRAZOLE 20 MG CAPSULE.DR PO ×2 (08:34→21:32)
[2024-06-08 08:38] LABS: Glucometer 196 mg/dL (74-106)
[2024-06-08] MEDS: PIPERACILLIN SODIUM/TAZOBACTAM 3.375 GM in 0.9 % SODIUM CHLORIDE 50 ML IV ×2 (10:01→17:09)
--- NOTE | 2024-06-08 10:15 | PM.IMPN1 ---
Progress Note: A&P Assessment and Plan (1) Acute exacerbation of chronic obstructive pulmonary disease (COPD): Assessment and Plan: C/w systemic steroids, duonebs. Wean off O2 as tolerated (2) Pneumonia: Assessment and Plan: At risk of resistant butch organisms and will treat as hospital acquired PNA due to recent hospital admission/steroid and abx use. On IV vancomycin/zosyn F/u sputum cx. Qualifiers: Laterality: bilateral Lung location: lower lobe of lung Pneumonia type: due to unspecified organism Qualified Code(s): J18.9 - Pneumonia, unspecified organism (3) Severe persistent asthma with exacerbation: Assessment and Plan: C/w IV steroids, duonebs. Wean off O2 as tolerated. (4) Acute and chronic respiratory failure with hypoxia: Assessment and Plan: On 55% FIO2, increased from yesterday but subjectively feels better. Wean off O2 as tolerated. (5) Chronic heart failure with preserved ejection fraction (HFpEF): Assessment and Plan: C/w lasix to avoid volume overload with systemic steroids. Instead of oral lasix, will give her IV lasix. (6) Hypertension: Assessment and Plan: Stable BP. C/w home medications Qualifiers: Hypertension type: primary hypertension Qualified Code(s): I10 - Essential (primary) hypertension (7) Lumbar stenosis with neurogenic claudication: Assessment and Plan: C/w lyrica. (8) Depression: Assessment and Plan: stable. c/w paxil, trazodone. Qualifiers: Depression Type: major depressive disorder Major depression recurrence: recurrent Active/Remission status: in full remission Qualified Code(s): F33.42 - Major depressive disorder, recurrent, in full remission (9) Severe malnutrition: Assessment and Plan: Added ensure. Internal Medicine - PN: Subj Subjective Interval history: Seen and examined. Requiring higher FIO2 but feels better subjectively. No overnight events. Exam Constitutional Vital Signs, click to edit/add: Last Vital Signs Temp 97.8 F 06/08/24 08:36 Pulse 76 06/08/24 09:49 Resp 18 06/08/24 08:36 BP 104/73 06/08/24 08:36 Pulse Ox 97 06/08/24 09:49 O2 Del Method Vapotherm 06/08/24 08:36 O2 Flow Rate 40 06/08/24 06:31 FiO2 55 06/08/24 06:31 Documenting provider has reviewed patient's vital signs: yes Common normals: oriented x3 General appearance: cooperative, ill appearing and frail appearing Respiratory Common normals: normal respiratory effort Effort & inspection: tachypneic Auscultation: rhonchi and wheezes Cardio Common normals: regular rate, S1 normal heart sound and S2 normal heart sound Rate: regular rate Heart sounds: S1 normal and S2 normal Neuro Common normals: oriented x3, moves all extremities and no focal motor deficits Psych Common normals: mental status grossly normal, denies hallucinations, denies homicidal ideation and denies suicidal ideation Internal Medicine - PN: Obj Da Labs Labs: Laboratory Results - last 24 hr 06/07/24 06/07/24 06/07/24 12:29 16:52 21:19 WBC RBC Hgb Hct MCV MCH MCHC RDW Plt Count MPV Seg Neuts % (Manual) Lymphocytes % (Manual) Monocytes % (Manual) Eosinophils % (Manual) Basophils % (Manual) Neutrophils # (Manual) Lymphocytes # (Manual) Monocytes # (Manual) Eosinophils # (Manual) Basophils # (Manual) Sodium Potassium Chloride Carbon Dioxide Anion Gap BUN Creatinine Est GFR ( Amer) Est GFR (Non-Af Amer) BUN/Creatinine Ratio Glucose Calcium Total Bilirubin AST ALT Alkaline Phosphatase Total Protein Albumin Globulin Albumin/Globulin Ratio POC Glucose 239 H 235 H 197 H 06/08/24 06/08/24 06:32 08:27 WBC 7.5 RBC 3.72 L Hgb 11.3 L Hct 35.6 L MCV 95.7 MCH 30.4 MCHC 31.7 RDW 13.2 Plt Count 245 MPV 9.3 L Seg Neuts % (Manual) 89.0 H Lymphocytes % (Manual) 8.0 L Monocytes % (Manual) 3.0 Eosinophils % (Manual) 0.0 L Basophils % (Manual) 0.0 L Neutrophils # (Manual) 6.67 H Lymphocytes # (Manual) 0.60 L Monocytes # (Manual) 0.22 L Eosinophils # (Manual) 0.00 Basophils # (Manual) 0.00 Sodium 142 Potassium 4.0 Chloride 104 Carbon Dioxide 31.7 Anion Gap 10.3 BUN 19.0 H Creatinine 1.04 H Est GFR ( Amer) >60 Est GFR (Non-Af Amer) 53 L BUN/Creatinine Ratio 18.3 Glucose 207 H Calcium 8.5 Total Bilirubin 0.1 L AST 10 L ALT 16 Alkaline Phosphatase 78 Total Protein 6.3 L Albumin 2.8 L Globulin 3.5 Albumin/Globulin Ratio 0.8 POC Glucose 196 H
--- NOTE | 2024-06-08 11:05 | RESP.RT ---
titrated down to 45%
[2024-06-08] MEDS: FUROSEMIDE 40 MG/4 ML VIAL IVP (12:21)
[2024-06-08] MEDS: ENSURE CLEAR 237 ML LIQUID PO ×2 (12:21→21:32)
[2024-06-08 12:30] LABS: Glucometer 209 mg/dL (74-106)
[2024-06-08 16:06] LABS: Glucometer 218 mg/dL (74-106)
[2024-06-08 20:35] LABS: Glucometer 350 mg/dL (74-106)
[2024-06-08] MEDS: PRAMIPEXOLE 0.125 MG TABLET 0.25 MG PO (21:32)
[2024-06-08] MEDS: TRAZODONE HCL 50 MG TABLET 100 MG PO (21:32)
[2024-06-08] MEDS: INSULIN DETEMIR 300 UNIT/3 ML INSULN.PEN 20 UNIT SUBQ (21:38)
[2024-06-09] VITALS (21 sets, daily range): BP systolic 123–144; BP diastolic 69–78; PULSE 59–79; TEMP 36.6–36.8; O2SAT 91–97
[2024-06-09] MEDS: METHYLPREDNISOLONE SOD SUCC PF 40 MG/ML VIAL IVP ×4 (02:45→20:06)
[2024-06-09] MEDS: PIPERACILLIN SODIUM/TAZOBACTAM 3.375 GM in 0.9 % SODIUM CHLORIDE 50 ML IV ×3 (02:45→17:55)
[2024-06-09] MEDS: IPRATROPIUM/ALBUTEROL SULFATE 3 ML AMPUL.NEB IH ×6 (03:52→23:02)
[2024-06-09] MEDS: BACLOFEN 10 MG TABLET PO ×3 (05:12→21:17)
[2024-06-09] MEDS: 0.9 % SODIUM CHLORIDE 250 ML 10 ML IV (07:15)
[2024-06-09 07:24] LABS: Hematocrit 36.4 % (36.0-48.0); Hemoglobin 11.6 g/dL (12.0-16.0); Mean Corpuscular HGB Conc 31.9 g/dL (29.9-35.2); Mean Corpuscular Hemoglobin 30.2 pg (26.7-34.0); Mean Corpuscular Volume 94.8 fL (81.0-99.0); Mean Platelet Volume 9.4 fL (9.5-13.5); Platelet Count 257 10^3/uL (150-450); Red Blood Count 3.84 10^6/uL (4.20-5.40); Red Cell Distribution Width 13.3 % (11.0-15.0); White Blood Count 7.5 10^3/uL (4.0-11.0)
[2024-06-09 07:45] LABS: Alanine Aminotransferase 15 U/L (14-59); Albumin Globulin Ratio 0.8; Albumin Level 2.8 g/dL (3.4-5.0); Alkaline Phosphatase 76 U/L (46-116); Aspartate Amino Transferase 10 U/L (15-37); BUN Creatinine Ratio 22.3; Bilirubin Total 0.2 mg/dL (0.2-1.0); Calcium 8.3 mg/dL (8.5-10.1); Chloride 103 mmol/L (98-107); Estimated GFR (African America >60 (>=60); Estimated GFR (Non-African Ame 53 (>=60); Globulin 3.4 g/dL; Glucose 191 mg/dL (74-106); Potassium 4.1 mmol/L (3.5-5.1); Sodium 142 mmol/L (136-145); Total Protein 6.2 g/dL (6.4-8.2)
[2024-06-09 07:50] LABS: Anion Gap 8.8; Carbon Dioxide 34.3 mmol/L (21.0-32.0)
[2024-06-09] MEDS: ENSURE CLEAR 237 ML LIQUID PO ×2 (08:02→20:06)
[2024-06-09] MEDS: PAROXETINE HCL 20 MG TABLET 30 MG PO (08:02)
[2024-06-09] MEDS: FUROSEMIDE 40 MG/4 ML VIAL IVP (08:02)
[2024-06-09] MEDS: PREGABALIN 75 MG CAPSULE PO ×2 (08:02→20:06)
[2024-06-09] MEDS: MONTELUKAST SODIUM 10 MG TABLET PO (08:03)
[2024-06-09] MEDS: SOLIFENACIN SUCCINATE 10 MG TABLET PO (08:03)
[2024-06-09] MEDS: MAGNESIUM OXIDE 400 MG TABLET PO (08:03)
[2024-06-09] MEDS: OMEPRAZOLE 20 MG CAPSULE.DR PO ×2 (08:03→20:06)
[2024-06-09] MEDS: ENOXAPARIN SODIUM 40 MG/0.4 ML SYRINGE SUBQ (08:03)
[2024-06-09] MEDS: VANCOMYCIN HCL 1,000 MG in 0.9 % SODIUM CHLORIDE 250 ML 250 MG IV ×2 (08:04→22:06)
[2024-06-09 08:07] LABS: Segmented Neut Absolute Manual 6.45 10^3/uL (1.4-6.5)
[2024-06-09 08:08] LABS: Monocytes Absolute Manual 0.15 10^3/uL (0.30-0.80)
[2024-06-09] MEDS: INSULIN ASPART 300 UNIT/3 ML PEN SUBQ ×4 (08:36→21:17)
--- NOTE | 2024-06-09 09:00 | P.IMPN_ITS ---
Progress Note: A&P Assessment and Plan (1) Acute exacerbation of chronic obstructive pulmonary disease (COPD): Assessment and Plan: Improving clinically. On 3 L of oxygen via nasal cannula now. Will decrease IV systemic steroids to every 12 hours. Continue with inhaled bronchodilators. Monitor (2) Pneumonia: Assessment and Plan: With IV vancomycin/Zosyn. Treating as hospital-acquired pneumonia given recent antibiotic use, hospital admission, steroid use. Cultures are negative so far. Qualifiers: Laterality: bilateral Lung location: lower lobe of lung Pneumonia type: due to unspecified organism Qualified Code(s): J18.9 - Pneumonia, unsp ecified organism (3) Severe persistent asthma with exacerbation: Assessment and Plan: Continue with inhaled bronchodilators, systemic steroids. Improving. Decrease IV steroids to every 12 hours. (4) Acute and chronic respiratory failure with hypoxia: Assessment and Plan: Patient is now back on 3 L oxygen via nasal cannula that is her baseline. Monitor closely. (5) Chronic heart failure with preserved ejection fraction (HFpEF): Assessment and Plan: On IV Lasix daily to avoid hypervolemia from steroid use. She uses oral Lasix at home. (6) Hypertension: Assessment and Plan: Continue with home medications. Monitor Qualifiers: Hypertension type: primary hypertension Qualified Code(s): I10 - Essential (primary) hypertension (7) Lumbar stenosis with neurogenic claudication: Assessment and Plan: Continue with Lyrica. (8) Depression: Assessment and Plan: Continue with Paxil/trazodone. Qualifiers: Depression Type: major depressive disorder Major depression recurrence: recurrent Active/Remission status: in full remission Qualified Code(s): F33.42 - Major depressive disorder, recurrent, in full remission (9) Severe malnutrition: Assessment and Plan: Continue with Ensure. Monitor as outpatient Internal Medicine - PN: Subj Subjective Interval history: Seen and examined. Patient is doing better and currently on 3 L oxygen via nasal cannula that is her baseline. She reports feeling tired and exhausted. No overnight events. Exam Constitutional Vital Signs, click to edit/add: Last Vital Signs Temp 97.9 F 06/09/24 04:27 Pulse 66 06/09/24 08:00 Resp 18 06/09/24 04:27 BP 144/78 H 06/09/24 04:27 Pulse Ox 94 L 06/09/24 08:00 O2 Del Method Nasal Cannula 06/09/24 07:38 O2 Flow Rate 3 06/09/24 07:38 FiO2 45 06/08/24 19:11 Documenting provider has reviewed patient's vital signs: yes Common normals: oriented x3 General appearance: cooperative and frail appearing Respiratory Common normals: normal respiratory effort Auscultation: rhonchi Other: Coarse breath sounds throughout lungs. Cardio Common normals: regular rate, S1 normal heart sound and S2 normal heart sound Rate: regular rate Heart sounds: S1 normal and S2 normal Neuro Common normals: oriented x3, moves all extremities and no focal motor deficits Psych Common normals: mental status grossly normal, denies hallucinations, denies homicidal ideation and denies suicidal ideation Internal Medicine - PN: Obj Da Labs Labs: Laboratory Results - last 24 hr 06/08/24 06/08/24 06/08/24 12:20 16:05 20:33 WBC RBC Hgb Hct MCV MCH MCHC RDW Plt Count MPV Seg Neuts % (Manual) Lymphocytes % (Manual) Monocytes % (Manual) Eosinophils % (Manual) Basophils % (Manual) Neutrophils # (Manual) Lymphocytes # (Manual) Monocytes # (Manual) Eosinophils # (Manual) Basophils # (Manual) Sodium Potassium Chloride Carbon Dioxide Anion Gap BUN Creatinine Est GFR ( Amer) Est GFR (Non-Af Amer) BUN/Creatinine Ratio Glucose Calcium Total Bilirubin AST ALT Alkaline Phosphatase Total Protein Albumin Globulin Albumin/Globulin Ratio POC Glucose 209 H 218 H 350 H 06/09/24 06:19 WBC 7.5 RBC 3.84 L Hgb 11.6 L Hct 36.4 MCV 94.8 MCH 30.2 MCHC 31.9 RDW 13.3 Plt Count 257 MPV 9.4 L Seg Neuts % (Manual) 86.0 H Lymphocytes % (Manual) 12.0 L Monocytes % (Manual) 2.0 Eosinophils % (Manual) 0.0 L Basophils % (Manual) 0.0 L Neutrophils # (Manual) 6.45 Lymphocytes # (Manual) 0.90 L Monocytes # (Manual) 0.15 L Eosinophils # (Manual) 0.00 Basophils # (Manual) 0.00 Sodium 142 Potassium 4.1 Chloride 103 Carbon Dioxide 34.3 H Anion Gap 8.8 BUN 23.0 H Creatinine 1.03 H Est GFR ( Amer) >60 Est GFR (Non-Af Amer) 53 L BUN/Creatinine Ratio 22.3 Glucose 191 H Calcium 8.3 L Total Bilirubin 0.2 AST 10 L ALT 15 Alkaline Phosphatase 76 Total Protein 6.2 L Albumin 2.8 L Globulin 3.4 Albumin/Globulin Ratio 0.8 POC Glucose
[2024-06-09 10:54] LABS: Glucometer 387 mg/dL (74-106)
[2024-06-09 16:08] LABS: Glucometer 308 mg/dL (74-106)
[2024-06-09] MEDS: OXYCODONE HCL 5 MG TABLET PO (20:06)
[2024-06-09 21:17] LABS: Glucometer 376 mg/dL (74-106)
[2024-06-09] MEDS: PRAMIPEXOLE 0.125 MG TABLET 0.25 MG PO (21:17)
[2024-06-09] MEDS: TRAZODONE HCL 50 MG TABLET 100 MG PO (21:17)
[2024-06-09] MEDS: INSULIN DETEMIR 300 UNIT/3 ML INSULN.PEN 30 UNIT SUBQ (21:18)
[2024-06-10] VITALS (8 sets, daily range): BP systolic 130–155; BP diastolic 80–90; PULSE 58–79; TEMP 36.3–36.6; O2SAT 91–95
[2024-06-10] MEDS: PIPERACILLIN SODIUM/TAZOBACTAM 3.375 GM in 0.9 % SODIUM CHLORIDE 50 ML IV (02:09)
[2024-06-10] MEDS: METHYLPREDNISOLONE SOD SUCC PF 40 MG/ML VIAL IVP (02:09)
[2024-06-10] MEDS: IPRATROPIUM/ALBUTEROL SULFATE 3 ML AMPUL.NEB IH ×2 (03:48→07:29)
[2024-06-10] MEDS: BACLOFEN 10 MG TABLET PO (05:16)
[2024-06-10 05:48] LABS: Basophils Percent Auto 0.2 % (0.2-2.0); Hematocrit 36.8 % (36.0-48.0); Hemoglobin 12.2 g/dL (12.0-16.0); Immature Granulocytes Abs Auto 0.15 10^3/uL (0.00-0.03); Immature Granulocytes Pct Auto 1.4 % (0.0-0.5); Lymphocytes Absolute Auto 0.4 10^3/uL (1.2-3.8); Lymphocytes Percent Auto 3.9 % (20.5-60.0); Mean Corpuscular HGB Conc 33.2 g/dL (29.9-35.2); Mean Corpuscular Hemoglobin 31.2 pg (26.7-34.0); Mean Corpuscular Volume 94.1 fL (81.0-99.0); Mean Platelet Volume 9.3 fL (9.5-13.5); Monocytes Absolute Auto 0.4 10^3/uL (0.3-0.8); Monocytes Percent Auto 3.8 % (1.7-12.0); Neutrophils Absolute Auto 9.6 10^3/uL (1.4-6.5); Neutrophils Percent Auto 90.7 % (43.0-75.0); Platelet Count 245 10^3/uL (150-450); Red Blood Count 3.91 10^6/uL (4.20-5.40); Red Cell Distribution Width 13.1 % (11.0-15.0); White Blood Count 10.6 10^3/uL (4.0-11.0)
[2024-06-10 05:55] LABS: Alanine Aminotransferase 16 U/L (14-59); Albumin Globulin Ratio 0.8; Albumin Level 2.7 g/dL (3.4-5.0); Alkaline Phosphatase 89 U/L (46-116); Anion Gap 11.1; Aspartate Amino Transferase 7 U/L (15-37); BUN Creatinine Ratio 22.1; Bilirubin Total 0.3 mg/dL (0.2-1.0); Calcium 8.1 mg/dL (8.5-10.1); Carbon Dioxide 32.9 mmol/L (21.0-32.0); Chloride 100 mmol/L (98-107); Estimated GFR (African America 58 (>=60); Estimated GFR (Non-African Ame 48 (>=60); Globulin 3.3 g/dL; Glucose 304 mg/dL (74-106); Sodium 140 mmol/L (136-145)
[2024-06-10 07:26] LABS: Glucometer 293 mg/dL (74-106)
[2024-06-10 08:36] LABS: Vancomycin Trough 15.9 ug/mL (5.0-20.0)
[2024-06-10] MEDS: ENSURE CLEAR 237 ML LIQUID PO (08:49)
[2024-06-10] MEDS: OMEPRAZOLE 20 MG CAPSULE.DR PO (08:51)
[2024-06-10] MEDS: MAGNESIUM OXIDE 400 MG TABLET PO (08:51)
[2024-06-10] MEDS: PAROXETINE HCL 20 MG TABLET 30 MG PO (08:51)
[2024-06-10] MEDS: INSULIN ASPART 300 UNIT/3 ML PEN SUBQ (08:51)
[2024-06-10] MEDS: SOLIFENACIN SUCCINATE 10 MG TABLET PO (08:51)
[2024-06-10] MEDS: MONTELUKAST SODIUM 10 MG TABLET PO (08:51)
[2024-06-10] MEDS: PREGABALIN 75 MG CAPSULE PO (08:51)
[2024-06-10] MEDS: ENOXAPARIN SODIUM 40 MG/0.4 ML SYRINGE SUBQ (09:10)
--- NOTE | 2024-06-10 09:18 | CM.NOTE ---
Rounds made with Dr. Ohara, PT ambulating pt at this time. Pt verbalizes her breathing is much better. Pt will discharge to home today on 3LNC, pt already set up with home oxygen. Pt also is active with [facility] and will resume services.
--- NOTE | 2024-06-10 09:23 | P.DS_ITS ---
DS: Providers Provider Date of admission: 06/07/24 09:35 Primary care physician: Shaikh Lev MD Admitting clinician: Shaikh Lev Attending physician on admission: Shaikh Lev Consults: 06/07/24 09:14 Occupational Therapy Eval and Treat Routine Reason for consultation: Ambulatory dysfunction/weakness Physical Therapy Eval and Treat Routine Reason for consultation: Ambulatory dysfunction/weakness Attending physician on discharge: Shaikh Lev Discharging clinician: Shaikh Lev Anticipated date of discharge: 06/10/24 DS: Diagnosis Discharge Diagnosis (1) Acute exacerbation of chronic obstructive pulmonary disease (COPD): Assessment and plan: Improved. Stable for discharge on oral prednisone (2) Pneumonia: Assessment and plan: Treated with IV vancomycin/zosyn. Will discharge on Oral doxycycline/Levaquin to cover for resistant organisms like MRSA/Pseudomonas given hx of steroid use, recent abx use,. Qualifiers: Laterality: bilateral Lung location: lower lobe of lung Pneumonia type: due to unspecified organism Qualified Code(s): J18.9 - Pneumonia, unspecified organism (3) Severe persistent asthma with exacerbation: Assessment and plan: Improved with duonebs, steroids. Will d/c on oral prednisone (4) Acute and chronic respiratory failure with hypoxia: Assessment and plan: On 3 L O 2 va [place], her baseline. Stable for discharge. (5) Chronic heart failure with preserved ejection fraction (HFpEF): Assessment and plan: Euvolemic. Stable for discharge on oral lasix (6) Hypertension: Assessment and plan: Stable. Monitor BP Qualifiers: Hypertension type: primary hypertension Qualified Code(s): I10 - Essential (primary) hypertension (7) Lumbar stenosis with neurogenic claudication: Assessment and plan: C/w Lyrica. (8) Depression: Assessment and plan: C/w paxil, trazodone. Qualifiers: Depression Type: major depressive disorder Major depression recurrence: recurrent Active/Remission status: in full remission Qualified Code(s): F33.42 - Major depressive disorder, recurrent, in full remission (9) Severe malnutrition: DS: Summary Hospital Course Hospital Course: 68-year-old female with severe persistent asthma and COPD presented with worsening shortness of breath, cough, chest congestion for 1 week. Patient uses 2 to 3 L of oxygen at baseline and was hypoxic upon arrival with pulse ox down to 86% and required increasing oxygen progressively and was placed on high flow O2 with FiO2 requirement as high as 55% during the course of admission. Patient had CT chest that indicated evidence of pneumonia for which she was treated with IV vancomycin and Zosyn-as she is at high risk of persistent abdominal exam because of recent hospital admission, recurrent prednisone use and underlying chronic lung disease. She was also treated with IV Solu-Medrol along with inhaled bronchodilators for COPD/asthma exacerbation. Patient was also given IV Lasix while she was in the hospital to avoid volume overload given her history of heart failure with preserved ejection fraction. She also needed long-acting basal insulin for hyperglycemia due to steroid-induced hyperglycemia. Patient continued to show clinical improvement progressively during the course of admission and was gradually weaned off of high flow and has been doing well on 3 L oxygen via nasal cannula. She feels better and more or less at her baseline. She does have chronic dyspnea on exertion due to her severe COPD/asthma. Otherwise she is at her baseline clinical status and medically stable for discharge on oral prednisone. And is now on high flow oxygen and requiring 80% FiO2. She appears short of breath during conversation and looks tired and lethargic. She does not feel any better compared to when she came to ED. Patient has had multiple episodes of COPD/asthma exacerbation. She has required prolonged hospital admission and repeated courses of oral steroids. Status at Discharge Functional status at discharge: uses cane/walker Overall status at discharge: patient is back to baseline Time Spent with Patient Time attestation: Total time spent providing and/or coordinating discharge services: Time spent: greater than 30 minutes Exam Constitutional Vital Signs, click to edit/add: Last Vital Signs Temp 97.8 F 06/10/24 07:54 Pulse 79 06/10/24 08:00 Resp 20 06/10/24 07:55 BP 155/90 H 06/10/24 07:54 Pulse Ox 94 L 06/10/24 08:00 O2 Del Method Room Air 06/10/24 07:54 O2 Flow Rate 3 06/10/24 07:54 FiO2 45 06/08/24 19:11 Documenting provider has reviewed patient's vital signs: yes Common normals: oriented x3 General appearance: cooperative and frail appearing Respiratory Common normals: normal respiratory effort Auscultation: rhonchi Other: Coarse breath sounds throughout lungs. Cardio Common normals: regular rate, S1 normal heart sound and S2 normal heart sound Rate: regular rate Heart sounds: S1 normal and S2 normal Neuro Common normals: oriented x3, moves all extremities and no focal motor deficits Psych Common normals: mental status grossly normal, denies hallucinations, denies homicidal ideation and denies suicidal ideation DS: Data Data Completed and Pending Labs on day of discharge: Labs from last 24 hours 06/10/24 06/10/24 06/10/24 08:03 07:26 05:13 WBC 10.6 RBC 3.91 L Hgb 12.2 Hct 36.8 MCV 94.1 MCH 31.2 MCHC 33.2 RDW 13.1 Plt Count 245 MPV 9.3 L Neut % (Auto) 90.7 H Lymph % (Auto) 3.9 L [place] % (Auto) 3.8 Eos % (Auto) 0.0 L Baso % (Auto) 0.2 Neut # (Auto) 9.6 H Lymph # (Auto) 0.4 L [place] # (Auto) 0.4 Eos # (Auto) 0.0 Baso # (Auto) 0.0 Abs Immat Gran (auto) 0.15 H Imm/Tot Granulo (auto) 1.4 H Sodium 140 Potassium 4.0 Chloride 100 Carbon Dioxide 32.9 H Anion Gap 11.1 BUN 25.0 H Creatinine 1.13 H Est GFR ( Amer) 58 L Est GFR (Non-Af Amer) 48 L BUN/Creatinine Ratio 22.1 Glucose 304 H Calcium 8.1 L Total Bilirubin 0.3 AST 7 L ALT 16 Alkaline Phosphatase 89 Total Protein 6.0 L Albumin 2.7 L Globulin 3.3 Albumin/Globulin Ratio 0.8 Vancomycin Trough 15.9 POC Glucose 293 H 06/09/24 06/09/24 06/09/24 21:16 16:07 10:53 WBC RBC Hgb Hct MCV MCH MCHC RDW Plt Count MPV Neut % (Auto) Lymph % (Auto) [place] % (Auto) Eos % (Auto) Baso % (Auto) Neut # (Auto) Lymph # (Auto) [place] # (Auto) Eos # (Auto) Baso # (Auto) Abs Immat Gran (auto) Imm/Tot Granulo (auto) Sodium Potassium Chloride Carbon Dioxide Anion Gap BUN Creatinine Est GFR ( Amer) Est GFR (Non-Af Amer) BUN/Creatinine Ratio Glucose Calcium Total Bilirubin AST ALT Alkaline Phosphatase Total Protein Albumin Globulin Albumin/Globulin Ratio Vancomycin Trough POC Glucose 376 H 308 H 387 H Discharge Plan Discharge Disposition: Home Health Service Condition: Fair Discharge Medications: New prednisone 20 mg tablet 20 mg PO DAILY Qty: 18 0RF Rx Instructions: 3 tab x 3 days, 2 tabs x 3 days 1 tab x 3 days. Once daily levofloxacin 750 mg tablet 750 mg PO DAILY 7 Days Qty: 7 0RF doxycycline hyclate 100 mg tablet 100 mg PO BID 7 Days Qty: 14 0RF Continued albuterol sulfate 2.5 mg /3 mL (0.083 %) solution for nebulization 2.5 mg continuous nebulization Q4H PRN (Reason: shortness of breath or wheezing) magnesium oxide 400 mg (241.3 mg magnesium) tablet 400 mg PO DAILY Rx Instructions: WITH FOOD omeprazole 20 mg capsule,delayed release(DR/EC) 20 mg PO BID Trelegy Ellipta 200-62.5-25 mcg blister with device 1 inh INHALATION Q24H pramipexole [Mirapex] 0.25 mg tablet 0.25 mg PO QPM Rx Instructions: administer 2 - 3 hours before bedtime montelukast 10 mg tablet 10 mg PO DAILY paroxetine HCl 30 mg tablet 30 mg PO QDAY pregabalin 75 mg capsule 75 mg PO BID solifenacin 10 mg tablet 10 mg PO QDAY trazodone 100 mg tablet 100 mg PO .qhs baclofen 10 mg tablet 10 mg PO Q8H Activity: increase activity as tolerated Diet: advance to your usual diet Print Language: Telugu Nurse Sexual Assault/[employer] Instructions: Resume [facility] at discharge. Phone number is [phone] Forms: Portal Instructions Follow Up Appointments: Follow up with Mae BRANDT MondayJun 12 at 11AM
--- NOTE | 2024-06-10 10:06 | SWNOTE1 ---
Pt is discharging today and resuming her [facility]. SW sent over progress notes from 06/08/24 and 06/09/24, dc summary, PT/OT notes, and dc med rec to [facility].
--- NOTE | 2024-06-10 10:11 | REH.PTDLY ---
Physical Therapy Daily Note PT Daily Note/Assess Start: 06/10/24 10:05 Freq: Status: Active Protocol: Document 06/10/24 10:06 LUPILLO (Rec: 06/10/24 10:10 LUPILLO [id number]) Physical Therapy Daily Note/Assessment Time In 08:34 Time Out 08:54 Subjective Pt in bed upon arrival. Reports she is ready to get up and moving. On 3 L of O2 now. Will need to use restroom. Therapeutic Exercise Minutes (minutes) 5 Therapeutic Exercise Units 0 Therapeutic Exercise Treatment Instructed in seated exs in chair 10x each with AP, marching, hip abd, hip add. Therapeutic Activity Minutes (minutes) 13 Therapeutic Activity Units 1 Bed Mobility Ability Independent Chair Transfer Ability Standby Assistance Therapeutic Activity Comments Pt ind with bed mobility. SBA with sit to stand transfers. Performs stand pivot transfer from bed to commode, SBA. Assisted pt in donning socks and with self care from commode. Pt is able to assist with pulling brief up. Standing tolerance of 3 mins and then ambulated with rollator 20 feet in room with SpO2 being 93% prior to gait and 92% post gait. Pt sits up in recliner. Total Therapy Minutes 18 Total Physical Therapy Units 1 Daily Note Summary Progressed with standing tolerance and gait training today with pt wearing 3 L of O2. Pt does well with this and reports she just has mild SOB , O2 sats do not drop below 92 %. enters room while pt is performing therapy and reports she will probably go home today.
--- NOTE | 2024-06-11 14:39 | CM.DCFOLLOWU ---
Person spoke with: Diana How are you feeling? still tired but getting better How is your pain? No pain Did you understand your discharge instructions? Yes Do you have any questions about your discharge instructions? No Were you given any prescriptions at discharge? Yes Were you able to get your prescriptions filled? Yes Do you understand how to take your medications as ordered? Yes Do you have any questions about your follow up appointment and do you plan to keep your follow up appointment? Appt scheduled and plan on going to appt Is there anything else that you would like to discuss? No Questions/Comments/Concerns/Other:
== END 2024-06-10 10:54 | disposition home health service (06) | DRG 193 ==
LOC: ER 20:25 → MS 21:12
PROVIDERS: Registered Nurse; Student in an Organized Health Care Education/Training Program; Admitting Provider Internal Medicine; Emergency Provider Emergency Medicine; PCP Internal Medicine; Visit Provider Internal Medicine
DX: J18.9 Pneumonia, unspecified organism (principal); E43 Unspecified severe protein-calorie malnutrition; J96.21 Acute and chronic respiratory failure with hypoxia; J44.0 Chronic obstructive pulmonary disease with (acute) lower respiratory infection; J44.1 Chronic obstructive pulmonary disease with (acute) exacerbation; J45.51 Severe persistent asthma with (acute) exacerbation; I50.32 Chronic diastolic (congestive) heart failure; Z68.41 Body mass index [BMI] 40.0-44.9, adult; I11.0 Hypertensive heart disease with heart failure; F33.42 Major depressive disorder, recurrent, in full remission; M48.062 Spinal stenosis, lumbar region with neurogenic claudication; R73.9 Hyperglycemia, unspecified; T38.0X5A Adverse effect of glucocorticoids and synthetic analogues, initial encounter; Z99.81 Dependence on supplemental oxygen; Z79.899 Other long term (current) drug therapy; I25.10 Atherosclerotic heart disease of native coronary artery without angina pectoris; Z98.1 Arthrodesis status; Z98.890 Other specified postprocedural states; Y95 Nosocomial condition; Z20.822 Contact with and (suspected) exposure to COVID-19
CPT/HCPCS: 36415; 71046; 71250; 80048; 80053; 80202; 82948; 83735; 83880; 84100; 84484; 85007; 85025; 85027; 87811; 93005; 94640; 94667; 94668; 94761; 94799; 96365; 96366; 96367; 96368; 96372; 96375; 96376; 97161; 97165; 97530; 99285; G0378; J1650; J1940; J2543; J2919; J3370

== ENCOUNTER 2024-06-24 08:09 | Day surgery (SDC) | payer OTHER, SELFPAY ==
--- OUTSIDE RECORDS SUMMARY | 2024-06-24 08:25 | XMS_ITS | CCD ---
Author Organization [facility] Care Team Providers Care Bus Person Name Role Phone Steph Collier Attending Provider Unavailable Chantel Rainey Primary Care Provider Unavailabl e Joana, Herberth Attending Provider Unavailable Unavailable Primary Care Provider Unavailabl e UNKNOWN, PHYSICIAN Referring Unavailable JOO BRAVO Attending Unavailable JOO BRAVO Admitting Unavailable UNKNOWN, PHYSICIAN Primary Care Unavailable Rena Hurd Unavailable Joana, Herberth Unavailable Gato Loco Unavailable [phone] Steph Collier Attending Provider MD Gato Loco Attending Provider [phone] MD Nicky Ohara Primary Care Provider Gilma [...] e FAWWAD, SAUNDERS H Primary Care Unavailable STOCKTON, DR BRITTANY Elizondo Consulting Unavailable ZIEBBETH, DR [...] Unavailable Fawwad, Saunders Primary Care Unavailable Gato Loco Attending UnavailGato Chatterjee Admitting Unavailabl Steph Strange Attending Provider Giedraitis MD, Andrius Vytautas Attending Unavailable Giedraitis MD, Andrius Vytautas Attending Unavailable Giedraitis MD, Andrius Vytautas Attending Unavailable Giedraitis MD, Andrius Vytautas Attending Unavailable Giedraitis MD, Andrius Vytautas Attending Unavailable Giedraitis MD, Andrius Vytautas Attending Unavailable Giedraitis MD, Andrius Vytautas Attending Unavailable FAWWAD, SAUNDERS Attending Unavailable FAWWAD, SAUNDERS Attending Unavailable FAWWAD, SAUNDERS Attending Unavailable FAWWAD, Attending Unavailable AICHHOLROSHNI Vega Attending Unavailable FAWWAD, Attending Unavailable FAWWAD, SAUNDERS Attending Unavailable FAWWAD, SAUNDERS Attending Unavailable FAWWAD, SAUNDERS Attending Unavailable FAWWAD, SAUNDERS Attending Unavailable FAWWAD, Attending Unavailable AIDA BLANC Attending Unavailtori SCALES, HETAL Attending Unavailable LEYLA YOO Referring Unavailable Unavailable Unavailable Unavailable Allergies Allergy Classification Reported Allergen(s) Allergy Type Date of Onset Reaction(s) Facility (5 sources) fentaNYL; Translations: [fentanyl] Drug Allergy 07-07-20 17 Hallucinating [facility] (1 source) linezolid; Translations: [LINEZOLID] Drug Allergy 03-17-20 20 [facility] Repository (20 sources) Vancomycin; Translations: [VANCOMYCIN] Drug Allergy 03-17-20 20 Unknown, Unknown Reaction [facility] Repository (12 sources) DENIES METAL SENSITITIVITY Propensity to adverse reactions 03-14-20 24 Unknown, Unknown Reaction [facility] Medications Current Medications Medication Drug Class(es) Dates Sig (Normalized) Sig (Original) 30 ACTUAT fluticasone furoate 0.2 MG/ACTUAT / umeclidinium 0.0625 MG/ACTUAT / vilanterol 0.025 MG/ACTUAT Dry Powder Inhaler [Trelegy] (2 sources) take 1 puff(s) by inhalation once daily Trelegy Ellipta 200-62.5-25 MCG/INH 1 puff Inhalation Once a day Active [id number] 200 actuat albuterol 0.09 mg/actuat metered dose [...] 14, 2024 12:00am Start: 12-08-2022 End: 03-14-2024 Tlgdousgxxm-Xkyyoixim-Chtzte er (Trelegy Ellipta) 200-62.5-25 mcg blister with [...] 14, 2024 10:41am take 1 capsule by mo [facility] every twelve hours Omeprazole 20 MG 1 CAPSULE Orally TWICE A DAY Active take 1 capsule by mo [facility] once daily Omeprazole 20 MG 1 [...] 1 puff(s) by inhalation twice daily Ipratropium [place] (Atrovent Hfa) 17 mcg/actuation Hfa Aerosol Inhaler [...] Chronic Other lower respiratory disease (2 sources) Solitary pulmonary nodule; Translations: [Solitary pulmonary nodule] Onset: 4 Episodic Other nervous system disorders (11 sources) [...] Range Facility Office Visiton 05-13-2024 Follow-up visit [id number] Nell Champion 1955 F Date Provider Department Center 05/13/2024 [id number], HETAL CARD [facility] Family History Problem Relation Age of Onset Heart failure Mother Heart disease Father Family Status - Relation Status Age at Mother Father Level of Service:16805 [place] OFFICE/OUTPATIENT ESTABLISHED MOD MDM 30 MIN Normal [facility] Erythrocyte distribution wid th Auto (RBC) [Ratio]on 03-06-2024 Erythrocyte distribution width (RBC) [Ratio] 13.2 % 11.0-15.0 [facility] Estimated glomerular filtrat ion rate (GFR) non- Americanon 03-06-2024 GFR/1.73 sq M.predicted among non-blacks MDRD (S/P/Bld) [Vol rate/Area] 57 mL/min/{1.73_m2} >=60 [facility] Hematocrit Auto (Bld) [Volum e fraction]on 03-06-2024 Hematocrit (Bld) [Volume fraction] 38.7 % 36.0-48.0 [facility] Hemoglobin [Mass/volume] in Bloodon 03-06-2024 Hemoglobin (Bld) [Mass/Vol] 12.2 g/dL 12.0-16.0 [facility] Laboratory - Chemistry and C hemistry - challengeon 03-06-2024 Albumin [Mass/Vol] 3.0 g/dL 3.4-5.0 [facility] Calcium [Mass/Vol] 8.8 mg/dL 8.5-10.1 [facility] Chloride [Moles/Vol] 104 mmol/L 98-107 [place] CO2 [Moles/Vol] 32.2 mmol/L 21.0-32.0 [facility] Creatinine [Mass/Vol] 0.97 mg/dL 0.55-1.02 [facility] GFR/1.73 sq M.predicted MDRD (S/P/Bld) [Vol rate/Area] mL/min/{1.73_m2} >=60 [facility] Glucose [Mass/Vol] 67 mg/dL 74-106 [facility] Magnesium [Mass/Vol] 1.9 mg/dL 1.8-2.4 [place] Potassium [Moles/Vol] 3.4 mmol/L 3.5-5.1 [facility] Sodium [Moles/Vol] 143 mmol/L 136-145 [facility] Urate [Mass/Vol] 5.0 mg/dL 2.6-6.0 [facility] Urea nitrogen [Mass/Vol] 16.0 mg/dL 7.0-18.0 [facility] Urea nitrogen/Creatinine [Mass ratio] 16.5 mg/mg [facility] Leukocytes [#/volume] correc melanie for nucleated erythrocytes in Blood by Automated counon 03-06-2024 WBC corrected for nucl RBC Auto (Bld) [#/Vol] 8.1 10 3/uL 4.0-11.0 [facility] MCH Auto (RBC) [Entitic mass ]on 03-06-2024 MCH (RBC) [Entitic mass] 30.4 pg 26.7-34.0 [facility] MCHC Auto (RBC) [Mass/Vol]on 03-06-2024 MCHC (RBC) [Mass/Vol] 31.5 g/dL 29.9-35.2 [facility] MCV Auto (RBC) [Entitic vol] on 03-06-2024 MCV (RBC) [Entitic vol] 96.5 fL 81.0-99.0 [facility] No Panel Informationon 03-06 Urine Random Creatinine 63.27 mg/dL 20.00-300.00 [facility] Urine Random Total Protein <6.0 mg/dL <=11.9 [facility] 25-Hydroxy Vitamin D Total 37.1 ng/mL [facility] Comment on above: <20 ng/mL Vit D defi cient20-<30 ng/mL Vit D ulrevhgchkih15-365 ng/mL Vit D sufficient>100 ng/mL Potential Toxicity Parathyroid Hormone (Intact) 36 pg/mL 15-65 [facility] Comment on above: Performed at: [employer] [place] [id number] Director: Raphael Marrero PhD, Phone: [phone] Phosphorus Level 3.2 mg/dL 2.6-4.7 [facility] Platelet mean volume Auto (B ld) [Entitic vol]on 03-06-2024 Platelet mean volume (Bld) [Entitic vol] 9.1 fL 9.5-13.5 [facility] Platelets Auto (Bld) [#/Vol] on 03-06-2024 Platelets (Bld) [#/Vol] 247 10 3/uL 150-450 [facility] RBC Auto (Bld) [#/Vol]on RBC (Bld) [#/Vol] 4.01 10 6/uL 4.20-5.40 [facility] Serum or plasma anion gap de terminationon 03-06-2024 Anion gap [Moles/Vol] 10.2 mmol/L [facility] SYMPTOMATIC COVID-19 ANTIGEN on 04-04-2023 EUA Statement SEE BELOW Normal [facility] Comment on above: Result [...] sooner. Performed By: #### C VDAGS #### [facility] [address] [place] [address] Dr. Shayne Roldan SARS-CoV-2 (COVID-19) RNA KAYLEE+probe Ql (Unsp spec) Positive Abnormal NEGATIVE [facility] Comment on above: Performed By: #### C VDAGS #### [facility] [address] [address] [address] Shayne Roldan XR LSPINE 2_3 VIEWSon [...] STEPH GRANADOS Date: 2023-03-24 12:52 Normal [facility] PTH INTACTon 02-27-2023 PTH, Intact 87 pg/mL Critically high 15-65 [facility] Comment on above: Performed By: #### P THINT #### [facility] [address] [place] [address] Dr. Shayne Roldan HEMOGRAM AND PLATELon 2022 Hematocrit (Bld) [Volume fraction] 44.4 % Normal 36.0-48.0 [facility] Comment on above: Performed By: #### H H #### [facility] [address] [place] [address] Dr. Shayne Roldan Hemoglobin (Bld) [Mass/Vol] 14.5 g/dL Normal 12.0-16.0 [facility] Comment on above: Performed By: #### H H #### [facility] [address] [place] [address] Dr. Shayen Roldan MCH (RBC) [Entitic mass] 30.3 pg Normal 26.7-34.0 [facility] Comment on above: Performed By: #### H H #### [facility] [address] [place] [address] Dr. Shayne Roldan MCHC (RBC) [Mass/Vol] 32.7 g/dL Normal 29.9-35.2 [facility] Comment on above: Performed By: #### H H #### [facility] [address] [place] [address] Dr. Shayne Roldan MCV (RBC) [Entitic vol] 92.9 fL Normal 81.0-99.0 [facility] Comment on above: Performed By: #### H H #### [facility] [address] [place] [address] Dr. Shayne Roldan PLT 367 103/ul Normal 150-450 [facility] Comment on above: Performed By: #### H H #### [facility] [address] [place] [address] Dr. Shayne Roldan RBC 4.78 106/ul Normal 4.20-5.40 [facility] Comment on above: Performed By: #### H H #### [facility] [address] [place] [address] Dr. Shayne Roldan WBC 9.9 103/ul Normal 4.0-11.0 [facility] Comment on above: Performed By: #### H H #### [facility] [address] [place] [address] Dr. Shayne Roldan MAGNESIUMon 02-25-2023 Magnesium [Mass/Vol] 1.6 mg/dL Critically low 1.8-2.4 [facility] Comment on above: Performed By: #### M G, RENAL, URIC #### [facility] [address] [place] [address] Dr. Shayne Roldan RENAL FUNCTION PANELon 02-25 Albumin [Mass/Vol] 3.4 g/dL Normal 3.4-5.0 [facility] Comment on above: Performed By: #### M G, RENAL, URIC #### [facility] [address] [place] [address] Dr. Shayne Roldan Calcium [Mass/Vol] 8.7 mg/dL Normal 8.5-10.1 [facility] Comment on above: Performed By: #### M G, RENAL, URIC #### [facility] [address] [place] [address] Dr. Shayne Roldan Chloride [Moles/Vol] 104 mmol/L Normal 98-107 [facility] Comment on above: Performed By: #### M G, RENAL, URIC #### [facility] [address] [place] [address] Dr. Shayne Roldan CO2 [Moles/Vol] 25.9 mmol/L Normal 21.0-32.0 [facility] Comment on above: Performed By: #### M G, RENAL, URIC #### [facility] [address] [place] [address] Dr. Shayne Roldan Creatinine [Mass/Vol] 1.19 mg/dL Critically high 0.55-1.02 [facility] Comment on above: Performed By: #### M G, RENAL, URIC #### [facility] [address] [place] [address] Dr. Shayne Roldan EGFR-AF SRI LANKAN 55 mL/min/1.73m2 Critically low >=60 [facility] Comment on above: Performed By: #### M G, RENAL, URIC #### [facility] [address] [address] [address] Shayne Roldan EGFR-NON AF SRI LANKAN 45 mL/min/1.73m2 Critically low >=60 [facility] Comment on above: Performed By: #### M G, RENAL, URIC #### [facility] [address] [address] [address] Shayne Roldan Glucose [Mass/Vol] 193 mg/dL Critically high 74-106 [facility] Comment on above: Performed By: #### M G, RENAL, URIC #### [facility] [address] [address] [address] Shayne Roldan Phosphate [Mass/Vol] 3.2 mg/dL Normal 2.6-4.7 [facility] Comment on above: Performed By: #### M G, RENAL, URIC #### [facility] [address] [address] [address] Shayne Roldan Potassium [Moles/Vol] 3.9 mmol/L Normal 3.5-5.1 [facility] Comment on above: Performed By: #### M G, RENAL, URIC #### [facility] [address] [address] [address] Shayne Roldan Sodium [Moles/Vol] 140 mmol/L Normal 136-145 [facility] Comment on above: Performed By: #### M G, RENAL, URIC #### [facility] [address] [address] [address] Shayne Roldan Urea nitrogen [Mass/Vol] 17.0 mg/dL Normal 7.0-18.0 [facility] Comment on above: Performed By: #### M G, RENAL, URIC #### [facility] [address] [address] [address] Shayne Roldan UA RANDOM W/MICROSCOPICon BACTERIA TRACE Abnormal NONE SEEN [facility] Comment on above: Performed By: #### M G, RENAL, URIC #### [facility] [address] [address] [address] Shayne Roldan Bilirubin Ql (U) Negative Normal NEGATIVE [facility] Comment on above: Performed By: #### M G, RENAL, URIC #### [facility] [address] [address] [address] Shayne Roldan CAST NONE SEEN Normal NONE SEEN [facility] Comment on above: Performed By: #### M G, RENAL, URIC #### [facility] [address] [address] [address] Shayne Roldan Clarity (U) CLEAR Normal CLEAR [facility] Comment on above: Performed By: #### M G, RENAL, URIC #### [facility] [address] [address] [address] Shayne Roldan Color (U) LT. YELLOW Normal YELLOW [facility] Comment on above: Performed By: #### M G, RENAL, URIC #### [facility] [address] [place] [address] Dr. Shayne Roldan Crystals LM Nom (Urine sed) NONE SEEN Normal NONE SEEN [facility] Comment on above: Performed By: #### M G, RENAL, URIC #### [facility] [address] [place] [address] Dr. Shayne Roldan Epithelial cells LM Ql (Urine sed) RARE Normal NONE SEEN /RARE [facility] Comment on above: Performed By: #### M G, RENAL, URIC #### [facility] [address] [place] [address] Dr. Shayne Roldan Glucose Ql (U) Negative Normal NEGATIVE [facility] Comment on above: Performed By: #### M G, RENAL, URIC #### [facility] [address] [address] [address] Shayne Roldan Hemoglobin Ql (U) Negative Normal NEGATIVE [facility] Comment on above: Performed By: #### M G, RENAL, URIC #### [facility] [address] [place] [address] Dr. Shayne Roldan Ketones Ql (U) Negative Normal NEGATIVE [facility] Comment on above: Performed By: #### M G, RENAL, URIC #### [facility] [address] [address] [address] Shayne Roldan LEUKOCYTES Negative Normal NEGATIVE [facility] Comment on above: Performed By: #### M G, RENAL, URIC #### [facility] [address] [address] [address] Shayne Roldan MUCOUS NONE SEEN Normal NONE SEEN [facility] Comment on above: Performed By: #### M G, RENAL, URIC #### [facility] [address] [address] [address] Shayne Roldan Nitrite Ql (U) Negative Normal NEGATIVE [facility] Comment on above: Performed By: #### M G, RENAL, URIC #### [facility] [address] [address] [address] Shayne Roldan pH (U) 5.0 [pH] Normal 5-9 [facility] Comment on above: Performed By: #### M G, RENAL, URIC #### [facility] [address] [place] [address] Dr. Shayne Roldan RBC 0-2 Normal 0-2 [facility] Comment on above: Performed By: #### M G, RENAL, URIC #### [facility] [address] [place] [address] Dr. Shayne Roldan SPEC GRAVITY 1.025 Normal 1.005-<=1.025 [facility] Comment on above: Performed By: #### M G, RENAL, URIC #### [facility] [address] [place] [address] Dr. Shayne Roldan UA PROTEIN Negative Normal NEGATIVE/ TRACE [facility] Comment on above: Performed By: #### M G, RENAL, URIC #### [facility] [address] [address] [address] Shayne Roldan Urobilinogen Qn (U) 0.2 {Rogelio'U}/dL Normal 0.2 - 1. 0 [facility] Comment on above: Performed By: #### M G, RENAL, URIC #### [facility] [address] [place] [address] Dr. Shayne Roldan WBC 0-2 Abnormal NONE SEEN [facility] Comment on above: Performed By: #### M G, RENAL, URIC #### [facility] [address] [place], [place] [id number] Dr. Shayne Roldan URIC ACID SERUMon 02-25-2023 Urate [Mass/Vol] 6.1 mg/dL Critically high 2.6-6.0 [facility] Comment on above: Performed By: #### M G, RENAL, URIC #### [facility] [address] [place] [address] Dr. Shayne Roldan URINE T PROTEIN CREAT RATIOo n 02-25-2023 Protein (U) [Mass/Vol] 13.0 mg/dL Critically high <=12.0 [facility] Comment on above: Performed By: #### M G, RENAL, URIC #### [facility] [address] [place] [address] Dr. Shayne Roldan UR PROT CREAT RAT 0.16 Normal [facility] Comment on above: Performed By: #### M G, RENAL, URIC #### [facility] [address] [place] [address] Dr. Shayne Roldan URINE CREAT 83.60 mg/dL Normal 20.00-300.00 [facility] Comment on above: Performed By: #### M G, RENAL, URIC #### [facility] [address] [place] [address] Dr. Shayne Roldan VITAMIN D 25 OHon 02-25-2023 VIT D 25-OH 41.6 ng/mL Normal [facility] Comment on above: Performed By: #### M G, RENAL, URIC #### [facility] [address] [place] [address] Dr. Shayne Roldan VIT D RANGES SEE BELOW Normal [facility] Comment on above: Result Comment: <20 ng/mL Vit D deficient 20 - <30 ng/mL Vit D insufficient 30 - 100 ng/mL Vit D sufficient >100 ng/mL Potential Toxicity Performed By: #### M G, RENAL, URIC #### [facility] [address] [place] [address] Dr. Shayne Roldan XR CHEST 2 Von [...] by: BRITTANY GALDAMEZ Date: 2023-02-22 16:15 Normal [facility] MAMM SCREEN 3D PRATEEK CADon 12-15-2022 MAMM SCREEN 3D PRATEEK CAD Patient: DIANA CHAMPION Exam Date: 12/15/2022 : 1955 Gender:F Ordering : DR JACK HALL . Admission #: [id number] Family : Order #: [id number] CLICK HERE TO VIEW EXAM RADIOLOGY REPORT PROCEDURE: MAMMOGRAM SCREENING 3D BILATERAL CAD COMPARISON: MAMM SCREEN 3D PRATEEK CAD, 11/26/2021. INDICATIONS: Calculator Name NCI Breast Cancer Risk Assessment Tool 5 Year Breast Cancer Risk 1.20% Lifetime Breast Cancer Risk 4.40% Personal Breast Cancer No Personal Ovarian Cancer No Treatments Excision, radiation, chemotherapy Family Cancers None LOCATION: [facility] BREAST COMPOSITION: Almost entirely fatty. [...] Walters MD on 12/15/2022 at 10:51 Normal [facility] XR DEXA BONE DENSITYon 12-15 XR [...] by: STEPH GRANADOS Date: 2022-12-15 09:50 Normal [facility] Fran 12-08-2022 L - -------- Specimen: [id number] Received: 12/08/22 Status: CELIA Kay Num: [id number] Spec Type: Surgical Subm Dr: Gato Loco MD Tissues: A Colon Biopsy (DESC COL POLYP) Procedures: FLORENCIA/Shagufta Douglass/Dionna L4 -------- Age/ Patient Sex Location Account Attending Physician -------- Diana Champion 67/F [id number] Gato Loco MD -------- SPEC NUM: [id number] RECD: 12/08/22 STATUS: CELIA KAY NUM: [id number] KENDRA: 12/08/[address] [facility] [address]: Gato Loco MD ENTERED: 12/08/[address] [facility] [address]: SPEC TYPE: Surgical DEPT: S ENTERED BY: [id number] RECV BY: [id number] ORDERED: HE/2, Gross/Micro L4 ORDERED: HE/2, Gross/Micro [...] support the above pathologic diagnosis. CPT Codes 83958 -------- -------- Specimen: [id number] Received: 12/08/22 Status: CELIA Kay Num: [id number] Spec Type: Surgical Subm Dr: Gato Loco MD Tissues: A Colon Biopsy (DESC COL POLYP) Procedures: HE/2, Gross/Micro L4 -------- Patient: Diana Champion [id number] (Continued) -------- Signed (signature on file) Eunice Rosa MD 12/09/22 1053 [facility] PAP ACOG PANEL 2: 30 to 65on 11-16-2022 . . Normal [facility] Comment on above: Performed By: #### [id number] #### [facility] [address] [place] [address] Dr. Shayne Roldan Age Gdln ACOG Testing Comment [facility] Comment on above: Result Comment: <21 or >65 or no age provided Performed By: #### [id number] #### [facility] [address] [place] [address] Dr. Shayne Roldan DIAGNOSIS: Comment [facility] Comment on above: Result Comment: NEGA TIVE FOR INTRAEPITHELIAL LESION OR MALIGNANCY. Performed By: #### [id number] #### [facility] [address] [place] [address] Dr. Shayne Roldan Methodology: Comment [facility] Comment on above: Result Comment: This liquid based ThinPrep(R) pap test was screened with the use of an image guided system. Performed By: #### [id number] #### [facility] [address] [place] [address] Dr. Shayne Roldan Note: Comment Normal [facility] Comment on above: Result Comment: The Pap smear is a screening test designed to aid in the detection of premalignant and malignant conditions of the uterine cervix. It is not a diagnostic procedure and should not be used as the sole means of detecting cervical cancer. Both false-positive and false-negative reports do occur. . Performed By: #### [id number] #### [facility] [address] [place] [address] Dr. Shayne Roldan Performed by: Comment Normal [facility] Comment on above: Result Comment: Onur Aguilar Physical Therapist Assistant (ASCP) Performed By: #### [id number] #### [facility] [address] [place] [address] Dr. Shayne Roldan Specimen adequacy: Comment Normal [facility] Comment on above: Result Comment: Sati sfactory for evaluation. Endocervical and/or squamous metaplastic cells (endocervical component) are present. Performed By: #### [id number] #### [facility] [address] [place] [address] Dr. Shayne Roldan RENAL FUNCTION PANELon 08-19 Albumin [Mass/Vol] 3.4 g/dL Normal 3.4-5.0 [facility] Comment on above: Performed By: #### M G, RENAL, URIC #### [facility] [address] [place] [address] Dr. Shayne Roldan Calcium [Mass/Vol] 8.4 mg/dL Critically low 8.5-10.1 [facility] Comment on above: Performed By: #### M G, RENAL, URIC #### [facility] [address] [place] [address] Dr. Shayne Roldan Chloride [Moles/Vol] 103 mmol/L Normal 98-107 [facility] Comment on above: Performed By: #### M G, RENAL, URIC #### [facility] [address] [place] [address] Dr. Shayne Roldan CO2 [Moles/Vol] 27.8 mmol/L Normal 21.0-32.0 [facility] Comment on above: Performed By: #### M G, RENAL, URIC #### [facility] [address] [address] [address] Shayne Roldan Creatinine [Mass/Vol] 1.02 mg/dL Normal 0.55-1.02 [facility] Comment on above: Performed By: #### M G, RENAL, URIC #### [facility] [address] [address] [address] Shayne Roldan EGFR-AF SRI LANKAN >60 Normal >=60 [facility] Comment on above: Performed By: #### M G, RENAL, URIC #### [facility] [address] [place] [address] Dr. Shayne Roldan EGFR-NON AF SRI LANKAN 54 mL/min/1.73m2 Critically low >=60 [facility] Comment on above: Performed By: #### M G, RENAL, URIC #### [facility] [address] [address] [address] Shayne Roldan Glucose [Mass/Vol] 110 mg/dL Critically high 74-106 [facility] Comment on above: Performed By: #### M G, RENAL, URIC #### [facility] [address] [address] [address] Shayne Roldan Phosphate [Mass/Vol] 2.3 mg/dL Critically low 2.6-4.7 [facility] Comment on above: Performed By: #### M G, RENAL, URIC #### [facility] [address] [address] [address] Shayne Roldan Potassium [Moles/Vol] 3.2 mmol/L Critically low 3.5-5.1 [facility] Comment on above: Performed By: #### M G, RENAL, URIC #### [facility] [address] [place] [address] Dr. Shayne Roldan Sodium [Moles/Vol] 138 mmol/L Normal 136-145 [facility] Comment on above: Performed By: #### M G, RENAL, URIC #### [facility] [address] [address] [address] Shayne Roldan Urea nitrogen [Mass/Vol] 14.0 mg/dL Normal 7.0-18.0 [facility] Comment on above: Performed By: #### M G, RENAL, URIC #### [facility] [address] [place] [address] Dr. Shayne Roldan PTH INTACTon 08-06-2022 PTH, Intact 40 pg/mL Normal 15-65 [facility] Comment on above: Performed By: #### M G, RENAL, URIC #### [facility] [address] [place] [address] Dr. Shayne Roldan HEMOGRAM AND PLATELon 2021 Hematocrit (Bld) [Volume fraction] 39.8 % Normal 36.0-48.0 [facility] Comment on above: Performed By: #### M G, RENAL, URIC #### [facility] [address] [place] [address] Dr. Shayne Roldan Hemoglobin (Bld) [Mass/Vol] 13.4 g/dL Normal 12.0-16.0 [facility] Comment on above: Performed By: #### M G, RENAL, URIC #### [facility] [address] [place] [address] Dr. Shayne Roldan MCH (RBC) [Entitic mass] 30.5 pg Normal 26.7-34.0 [facility] Comment on above: Performed By: #### M G, RENAL, URIC #### [facility] [address] [place] [address] Dr. Shayne Roldan MCHC (RBC) [Mass/Vol] 33.7 g/dL Normal 29.9-35.2 [facility] Comment on above: Performed By: #### M G, RENAL, URIC #### [facility] [address] [place] [address] Dr. Shayne Roldan MCV (RBC) [Entitic vol] 90.5 fL Normal 81.0-99.0 [facility] Comment on above: Performed By: #### M G, RENAL, URIC #### [facility] [address] [place] [address] Dr. Shayne Roldan PLT 299 103/ul Normal 150-450 [facility] Comment on above: Performed By: #### M G, RENAL, URIC #### [facility] [address] [place] [address] Dr. Shayne Roldan RBC 4.40 106/ul Normal 4.20-5.40 [facility] Comment on above: Performed By: #### M G, RENAL, URIC #### [facility] [address] [place] [address] Dr. Shayne Roldan WBC 8.8 103/ul Normal 4.0-11.0 [facility] Comment on above: Performed By: #### M G, RENAL, URIC #### [facility] [address] [place] [address] Dr. Shayne Roldan MAGNESIUMon 08-05-2022 Magnesium [Mass/Vol] 1.5 mg/dL Critically low 1.8-2.4 [facility] Comment on above: Performed By: #### M G, RENAL, URIC #### [facility] [address] [place] [address] Dr. Shayne Roldan RENAL FUNCTION PANELon 08-05 Albumin [Mass/Vol] 3.5 g/dL Normal 3.4-5.0 [facility] Comment on above: Performed By: #### M G, RENAL, URIC #### [facility] [address] [place] [address] Dr. Shayne Roldan Calcium [Mass/Vol] 8.4 mg/dL Critically low 8.5-10.1 [facility] Comment on above: Performed By: #### M G, RENAL, URIC #### [facility] [address] [place] [address] Dr. Shayne Roldan Chloride [Moles/Vol] 101 mmol/L Normal 98-107 [facility] Comment on above: Performed By: #### M G, RENAL, URIC #### [facility] [address] [place] [address] Dr. Shayne Roldan CO2 [Moles/Vol] 29.5 mmol/L Normal 21.0-32.0 [facility] Comment on above: Performed By: #### M G, RENAL, URIC #### [facility] [address] [address] [address] Shayne Roldan Creatinine [Mass/Vol] 1.04 mg/dL Critically high 0.55-1.02 [facility] Comment on above: Performed By: #### M G, RENAL, URIC #### [facility] [address] [address] [address] Shayne Roldan EGFR-AF SRI LANKAN >60 Normal >=60 [facility] Comment on above: Performed By: #### M G, RENAL, URIC #### [facility] [address] [address] [address] Shayne Roldan EGFR-NON AF SRI LANKAN 53 mL/min/1.73m2 Critically low >=60 [facility] Comment on above: Performed By: #### M G, RENAL, URIC #### [facility] [address] [address] [address] Shayne Roldan Glucose [Mass/Vol] 92 mg/dL Normal 74-106 [facility] Comment on above: Performed By: #### M G, RENAL, URIC #### [facility] [address] [address] [address] Shayne Roldan Phosphate [Mass/Vol] 2.4 mg/dL Critically low 2.6-4.7 [facility] Comment on above: Performed By: #### M G, RENAL, URIC #### [facility] [address] [address] [address] Shayne Roldan Potassium [Moles/Vol] 2.8 mmol/L Critically low 3.5-5.1 [facility] Comment on above: Performed By: #### M G, RENAL, URIC #### [facility] [address] [address] [address] Shayne Roldan Sodium [Moles/Vol] 137 mmol/L Normal 136-145 [facility] Comment on above: Performed By: #### M G, RENAL, URIC #### [facility] [address] [address] [address] Shayne Roldan Urea nitrogen [Mass/Vol] 10.0 mg/dL Normal 7.0-18.0 [facility] Comment on above: Performed By: #### M G, RENAL, URIC #### [facility] [address] [place] [address] Dr. Shayne Roldan UA RANDOM W/MICROSCOPICon BACTERIA SMALL Abnormal NONE SEEN [facility] Comment on above: Performed By: #### U AMIC #### [facility] [address] [place] [address] Dr. Shayne Roldan Bilirubin Ql (U) Negative Normal NEGATIVE [facility] Comment on above: Performed By: #### U AMIC #### [facility] [address] [place] [address] Dr. Shayne Roldan CAST NONE SEEN Normal NONE SEEN [facility] Comment on above: Performed By: #### U AMIC #### [facility] [address] [place] [address] Dr. Shayne Roldan Clarity (U) CLEAR Normal CLEAR [facility] Comment on above: Performed By: #### U AMIC #### [facility] [address] [place] [address] Dr. Shayne Roldan Color (U) LT. YELLOW Normal YELLOW [facility] Comment on above: Performed By: #### U AMIC #### [facility] [address] [place] [address] Dr. Shayne Roldan Crystals LM Nom (Urine sed) NONE SEEN Normal NONE SEEN [facility] Comment on above: Performed By: #### U AMIC #### [facility] [address] [address] [address] Shayne Roldan Epithelial cells LM Ql (Urine sed) FEW Abnormal NONE SEEN /RARE [facility] Comment on above: Performed By: #### U AMIC #### [facility] [address] [place] [address] Dr. Shayne Roldan Glucose Ql (U) Negative Normal NEGATIVE [facility] Comment on above: Performed By: #### U AMIC #### [facility] [address] [place] [address] Dr. Shayne Roldan Hemoglobin Ql (U) Negative Normal NEGATIVE The [facility] Comment on above: Performed By: #### U AMIC #### [facility] [address] [address] [address] Shayne Roldan Ketones Ql (U) Negative Normal NEGATIVE [facility] Comment on above: Performed By: #### U AMIC #### [facility] [address] [address] [address] Shayne Roldan LEUKOCYTES TRACE Abnormal NEGATIVE [facility] Comment on above: Performed By: #### U AMIC #### [facility] [address] [address] [address] Shayne Roldan MUCOUS NONE SEEN Normal NONE SEEN [facility] Comment on above: Performed By: #### U AMIC #### [facility] [address] [address] [address] Shayne Roldan Nitrite Ql (U) Negative Normal NEGATIVE [facility] Comment on above: Performed By: #### U AMIC #### [facility] [address] [address] [address] Shayne Roldan pH (U) 6.0 [pH] Normal 5-9 [facility] Comment on above: Performed By: #### U AMIC #### [facility] [address] [address] [address] Shayne Roldan RBC NONE SEEN Abnormal 0-2 [facility] Comment on above: Performed By: #### U AMIC #### [facility] [address] [address] [address] Shayne Roldan SPEC GRAVITY <=1.005 Abnormal 1.005-<=1.025 [facility] Comment on above: Performed By: #### U AMIC #### [facility] [address] [address] [address] Shayne Roldan UA PROTEIN Negative Normal NEGATIVE/ TRACE [facility] Comment on above: Performed By: #### U AMIC #### [facility] [address] [place] [address] Dr. Shayne Roldan Urobilinogen Qn (U) 0.2 {Rogelio'U}/dL Normal 0.2 - 1. 0 [facility] Comment on above: Performed By: #### U AMIC #### [facility] [address] [address] [address] Shayne Roldan WBC 5-10 Abnormal NONE SEEN [facility] Comment on above: Performed By: #### U AMIC #### [facility] [address] [place] [address] Dr. Shayne Roldan URIC ACID SERUMon 08-05-2022 Urate [Mass/Vol] 6.5 mg/dL Critically high 2.6-6.0 [facility] Comment on above: Performed By: #### M G, RENAL, URIC #### [facility] [address] [place] [address] Dr. Shayne Roldan URINE T PROTEIN CREAT RATIOo n 08-05-2022 Protein (U) [Mass/Vol] 4.8 mg/dL Normal <=12.0 [facility] Comment on above: Performed By: #### U RTPCR #### [facility] [address] [place] [address] Dr. Shayne Roldan UR PROT CREAT RAT 0.09 Normal [facility] Comment on above: Performed By: #### U RTPCR #### [facility] [address] [place] [address] Dr. Shayne Roldan URINE CREAT 52.65 mg/dL Normal 20.00-300.00 [facility] Comment on above: Performed By: #### U RTPCR #### [facility] [address] [place] [address] Dr. Shayne Roldan VITAMIN D 25 OHon 08-05-2022 VIT D 25-OH 38.9 ng/mL Normal [facility] Comment on above: Performed By: #### M G, RENAL, URIC #### [facility] [address] [place] [address] Dr. Shayne Roldan VIT D RANGES SEE BELOW Normal [facility] Comment on above: Result Comment: <20 ng/mL Vit D deficient 20 - <30 ng/mL Vit D insufficient 30 - 100 ng/mL Vit D sufficient >100 ng/mL Potential Toxicity Performed By: #### M G, RENAL, URIC #### [facility] [address] [address] [address] Shayne Roldan IMMUNOGLOBULINS IGA/IGM/IGG/ IGE QUANTITAon 07-12-2022 Immunoglobulin A, Qn, Serum 295 mg/dL Normal 87-352 [facility] Comment on above: Result Comment: Perf ormed at: CB Performed By: #### M G, RENAL, URIC #### [facility] [address] [address] [address] Shayne Roldan Immunoglobulin E, Total 32 IU/mL Normal 6-495 [facility] Comment on above: Result Comment: Perf ormed at: BN Performed By: #### M G, RENAL, URIC #### [facility] [address] [place] [address] Dr. Shayne Roldan Immunoglobulin G, Qn, Serum 729 mg/dL Normal 586-1602 [facility] Comment on above: Result Comment: Perf ormed at: CB Performed By: #### M G, RENAL, URIC #### [facility] [address] [place] [address] Dr. Shayne Roldan Immunoglobulin M, Qn, Serum 75 mg/dL Normal 26-217 [facility] Comment on above: Result Comment: Perf ormed at: CB Performed By: #### M G, RENAL, URIC #### [facility] [address] [place] [address] Dr. Shayne Roldan CBC AUTO DIFFon 07-05-2022 BASO # 0.1 103/ul Normal 0.0-0.1 [facility] Comment on above: Performed By: #### M G, RENAL, URIC #### [facility] [address] [place] [address] Dr. Shayne Roldan Basophils/100 WBC (Bld) 0.7 % Normal 0.2-2.0 [facility] Comment on above: Performed By: #### M G, RENAL, URIC #### [facility] [address] [place] [address] Dr. Shayne Roldan EO # 0.4 103/ul Normal 0.0-0.7 [facility] Comment on above: Performed By: #### M G, RENAL, URIC #### [facility] [address] [place] [address] Dr. Shayne Roldan Eosinophils/100 WBC (Bld) 4.4 % Normal 0.9-7.0 [facility] Comment on above: Performed By: #### M G, RENAL, URIC #### [facility] [address] [place] [address] Dr. Shayne Roldan Erythrocyte distribution width (RBC) [Ratio] 12.6 % Normal 11.0-15.0 [facility] Comment on above: Performed By: #### M G, RENAL, URIC #### [facility] [address] [place] [address] Dr. Shayne Roldan Hematocrit (Bld) [Volume fraction] 40.2 % Normal 36.0-48.0 [facility] Comment on above: Performed By: #### M G, RENAL, URIC #### [facility] [address] [place] [address] Dr. Shanye Roldan Hemoglobin (Bld) [Mass/Vol] 13.6 g/dL Normal 12.0-16.0 [facility] Comment on above: Performed By: #### M G, RENAL, URIC #### [facility] [address] [place] [address] Dr. Shayne Roldan IG # 0.07 10e3/ul Critically high 0.00-0.03 [facility] Comment on above: Performed By: #### M G, RENAL, URIC #### [facility] [address] [place] [address] Dr. Shayne Roldan IG % 0.8 % Critically high 0.0-0.5 [facility] Comment on above: Performed By: #### M G, RENAL, URIC #### [facility] [address] [place] [address] Dr. Shayne Roldan LYMPH # 2.3 103/ul Normal 1.2-3.8 [facility] Comment on above: Performed By: #### M G, RENAL, URIC #### [facility] [address] [place] [address] Dr. Shayne Roldan Lymphocytes/100 WBC (Bld) 24.7 % Normal 20.5-60.0 [facility] Comment on above: Performed By: #### M G, RENAL, URIC #### [facility] [address] [place] [address] Dr. Shayne Roldan MANUAL DIFF REQ NO Normal [facility] Comment on above: Performed By: #### M G, RENAL, URIC #### [facility] [address] [place] [address] Dr. Shayne Roldan MCH (RBC) [Entitic mass] 30.7 pg Normal 26.7-34.0 [facility] Comment on above: Performed By: #### M G, RENAL, URIC #### [facility] [address] [place] [address] Dr. Shayne Roldan MCHC (RBC) [Mass/Vol] 33.8 g/dL Normal 29.9-35.2 [facility] Comment on above: Performed By: #### M G, RENAL, URIC #### [facility] [address] [place] [address] Dr. Shayne Roldan MCV (RBC) [Entitic vol] 90.7 fL Normal 81.0-99.0 [facility] Comment on above: Performed By: #### M G, RENAL, URIC #### [facility] [address] [place] [address] Dr. Shayne Roldan MONO # 0.7 103/ul Normal 0.3-0.8 [facility] Comment on above: Performed By: #### M G, RENAL, URIC #### [facility] [address] [place] [address] Dr. Shayne Roldan Monocytes/100 WBC (Bld) 7.7 % Normal 1.7-12.0 [facility] Comment on above: Performed By: #### M G, RENAL, URIC #### [facility] [address] [place] [address] Dr. Shayne Roldan NEUT # 5.7 103/ul Normal 1.4-6.5 [facility] Comment on above: Performed By: #### M G, RENAL, URIC #### [facility] [address] [address] [address] Shayne Roldan Neutrophils/100 WBC (Bld) 61.7 % Normal 43.0-75.0 [facility] Comment on above: Performed By: #### M G, RENAL, URIC #### [facility] [address] [place] [address] Dr. Shayne Roldan Platelet mean volume (Bld) [Entitic vol] 8.8 fL Critically low 9.5-13.5 [facility] Comment on above: Performed By: #### M G, RENAL, URIC #### [facility] [address] [address] [address] Shayne Roldan PLT 279 103/ul Normal 150-450 [facility] Comment on above: Performed By: #### M G, RENAL, URIC #### [facility] [address] [place] [address] Dr. Shayne Roldan RBC 4.43 106/ul Normal 4.20-5.40 [facility] Comment on above: Performed By: #### M G, RENAL, URIC #### [facility] [address] [address] [address] Shayne Roldan WBC 9.1 103/ul Normal 4.0-11.0 [facility] Comment on above: Performed By: #### M G, RENAL, URIC #### [facility] [address] [place] [address] Dr. Shayne Roldan Covid-19 PCR (CVDTB)on SARS-CoV-2 (COVID-19) RNA KAYLEE+probe Ql (Unsp spec) Not detected Normal NOT DETECTED [facility] Comment on above: Result Comment: This test is not yet approved or cleared by the [place] FDA. When there are no FDA-approved or cleared tests available, and other criteria are met, FDA can make tests available under an emergency access mechanism called an Emergency Use Authorization (EUA). The EUA for this test is supported by the [place] of Health and Human Service's (HHS's) declaration [...] By: #### M G, RENAL, URIC #### [facility] [address] [place], [place] [address] Dr. Shayne Roldan XR CHEST 2 Von [...] NARDA LONDONO Date: 2022-06-08 19:58 Normal [facility] Covid-19 PCR (CVDTBH)on SARS-CoV-2 (COVID-19) RNA KAYLEE+probe Ql (Unsp spec) Not detected Normal NOT DETECTED [facility] Comment on above: Result Comment: This test is not yet approved or cleared by the [place] FDA. When there are no FDA-approved or cleared tests available, and other criteria are met, FDA can make tests available under an emergency access mechanism called an Emergency Use Authorization (EUA). The EUA for this test is supported by the [place] of Health and Human Service's (HHS's) declaration [...] consistent with SARS-CoV-2. Performed By: #### C [facility] #### [facility] [address] [address] [address] Shayne Roldan DEXA AXIALon 03-01-2022 DEXA AXIAL [facility] Department of Radiology [address] [place] [address] Patient Name: DIANA CHAMPION : [...] characteristics. Electronically signed: Luzma Fernandez. Transcribed by: [email or web address], User Resident: Electronically Signed by: LUZMA FERNANDEZ @ 03/02/2022 01:07 PM Normal [facility] SCOLIOSIS 2 [facility] 02-24-2022 SCOLIOSIS 2 [facility] Department of Radiology [address] [place] [id number] Patient Name: DIANA CHAMPION : 1955 Sex: F Age: Race: White Pt. Location: Patient Status: D Ordered Date: 02/24/2022 1:25:00 PM Completed Date: 02/24/2022 01:44 PM Requesting Provider: CINDA ANTONIO Attending Provider: Report Copy To: Signs & Symptoms: M43.10 Spondylolisthesis, site unspecified I10 History: Comments: Views (X-RAY, SCOLIOSIS): PA, Lateral evaluate Exam: SCOLIOSIS 2 [facility] Scoliosis. Worsening pain. Frontal and lateral thoracolumbar spine IMPRESSION: 1. Diffuse disc disease and facet arthritis. Right convex mid lumbar curvature measuring 16 degrees. Interbody fusion hardware lower lumbar spine. Electronically signed: Huog Lynn. Transcribed by: [email or web address], User Resident: Electronically Signed by: HUGO LYNN @ 02/26/2022 11:07 AM Normal [facility] Comment on above: Order Comment: Views (X-RAY, SCOLIOSIS): PA, Lateral evaluate CT LUMBAR SPINE W CONTRASTon 01-24-2022 CT LUMBAR SPINE W CONTRAST [facility] Department of Radiology [address] [place] [address] Patient Name: DIANA CHAMPION : [...] L1-2. Electronically signed: Gaurang Lawrence. Transcribed by: [email or web address], User Resident: Electronically Signed by: GAURANG LAWRENCE @ 01/26/2022 08:58 AM Normal [facility] Comment on above: Order Comment: , CT MYELOGRAM>PAPER WORK IN CHART LUMBAR MYELOGRAMon 2 LUMBAR MYELOGRAM [facility] Department of Radiology [address] [place] [id number] Patient Name: DIANA CHAMPION : 1955 Sex: F Age: Race: White Pt. Location: Patient Status: O Ordered Date: 01/09/2022 9:00:00 AM Completed Date: 01/24/2022 02:37 PM Requesting Provider: JOO BRAVO Attending Provider: JOO BRAVO Report Copy To: UNKNOWN, PHYSICIAN Signs & Symptoms: M54.16 Radiculopathy, lumbar region I10 History: Jessica Is patient on thinners? 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 Consent was obtained. Timeout: [place] protocol timeout verification performed. PROCEDURE: Estimated blood [...] report. Electronically signed: Greg Marlow. Transcribed by: [email or web address], User Resident: DEBBIE JI Electronically Signed by: GREG MARLOW @ 01/24/2022 04:07 PM I personally read this/these film(s) with this resident Normal [facility] Comment on above: Order Comment: , CT MYELOGRAM> PAPER WORK SCANNED IN CHART , CT MYELOGRAM> PAPER WORK SCANNED IN CHART , , , Ordering Provider - JOO BRAVO MD , HIP LEFT 1 OR 2 VWS WITH PEL VISon 01-06-2022 HIP LEFT 1 OR 2 VWS WITH PELVIS [facility] Department of Radiology [address] [place] [id number] Patient Name: DIANA CHAMPION : 1955 [...] hardware. Electronically signed: Joe Matthew. Transcribed by: [email or web address], User Resident: Electronically Signed by: JOE MATTHEW @ 01/09/2022 04:45 PM Normal [facility] Comment on above: Order Comment: Evalu ate Vital Signs Date Time Vital Sign Value Performing Clinician Facility 03-14-2024 10:30-0400 Body height 165.1 cm Steph Collier Work Phone: [facility] 03-14-2024 10:30-0400 Body mass index (BMI) [Ratio] 39 kg/m2 Steph Collier Work Phone: [facility] 03-14-2024 10:30-0400 Body temperature 97.4 [degF] Steph Collier Work Phone: [facility] 03-14-2024 10:30-0400 Body weight 106.36 kg Steph Collier Work Phone: [facility] 03-14-2024 10:30-0400 Diastolic blood pressure 80 mm[Hg] Steph Collier Work Phone: [facility] 03-14-2024 10:30-0400 Heart rate 77 /min Steph Collier Work Phone: [facility] 03-14-2024 10:30-0400 Inhaled oxygen flow rate 3 L/min Steph Collier Work Phone: [facility] 03-14-2024 10:30-0400 Respiratory rate 20 /min Steph Collier Work Phone: [facility] 03-14-2024 10:30-0400 SaO2% (BldA) [Mass fraction] 92 % Steph Collier Work Phone: [facility] 03-14-2024 10:30-0400 Systolic blood pressure 120 mm[Hg] Steph Collier Work Phone: [facility] 08-17-2023 09:20-0400 Body height 165.1 cm Herberth Joana Other [employer] Other 08-17-2023 09:20-0400 Body mass index (BMI) [Ratio] 38.1 kg/m2 Herberth Joana Other [employer] Other 08-17-2023 09:20-0400 Body temperature 98.8 [degF] Herberth Joana Other [employer] Other 08-17-2023 09:20-0400 Body weight 103.87 kg Herberth Joana Other [employer] Other 08-17-2023 09:20-0400 Diastolic blood pressure 85 mm[Hg] Herberth Joana Other [employer] Other 08-17-2023 09:20-0400 Respiratory rate 18 /min Herberth Joana Other [employer] Other 08-17-2023 09:20-0400 SaO2% (BldA) [Mass fraction] 94 % Herberth Joana Other [employer] Other 08-17-2023 09:20-0400 Systolic blood pressure 151 mm[Hg] Herberth Joana Other [employer] Other 03-02-2023 10:00-0400 Body height 165.1 cm Herberth Joana Other [employer] Other 03-02-2023 10:00-0400 Body mass index (BMI) [Ratio] 37.29 kg/m2 Herberth Joana Other [employer] Other 03-02-2023 10:00-0400 Body temperature 98.9 [degF] Herberth Joana Other [employer] Other 03-02-2023 10:00-0400 Body weight 101.65 kg Herberth Joana Other [employer] Other 03-02-2023 10:00-0400 Diastolic blood pressure 76 mm[Hg] Herberth Joana Other [employer] Other 03-02-2023 10:00-0400 Respiratory rate 20 /min Herberth Joana Other [employer] Other 03-02-2023 10:00-0400 SaO2% (BldA) [Mass fraction] 96 % Herberth Joana Other [employer] Other 03-02-2023 10:00-0400 Systolic blood pressure 136 mm[Hg] Herberth Joana Other [employer] Other 12-08-2022 09:30-0500 Diastolic blood pressure 59 mm[Hg] MD Shaikh Ohara Work Phone: [facility] 12-08-2022 09:30-0500 Heart rate 55 /min MD Shaikh Ohara Work Phone: [facility] 12-08-2022 09:30-0500 Respiratory rate 16 /min MD Shaikh Ohara Work Phone: [facility] 12-08-2022 09:30-0500 SaO2% (BldA) [Mass fraction] 96 % MD Shaikh Ohara Work Phone: [facility] 12-08-2022 09:30-0500 Systolic blood pressure 112 mm[Hg] MD Shaikh Ohara Work Phone: [facility] 12-08-2022 06:54-0500 Body height 162.56 cm MD Shaikh Ohara Work Phone: [facility] 12-08-2022 06:54-0500 Body temperature 98.2 [degF] MD Shaikh Ohara Work Phone: [facility] 12-08-2022 06:54-0500 Body weight 104.32 kg MD Shaikh Ohara Work Phone: [facility] 08-09-2022 11:00-0400 Body height 165.1 cm Herberth Joana Other [employer] Other 08-09-2022 11:00-0400 Body mass index (BMI) [Ratio] 37.87 kg/m2 Herberth Joana Other [employer] Other 08-09-2022 11:00-0400 Body temperature 97.2 [degF] Herberth Joana Other [employer] Other 08-09-2022 11:00-0400 Body weight 103.24 kg Herberth Joana Other [employer] Other 08-09-2022 11:00-0400 Diastolic blood pressure 88 mm[Hg] Herberth Joana Other [employer] Other 08-09-2022 11:00-0400 Respiratory rate 20 /min Herberth Joana Other [employer] Other 08-09-2022 11:00-0400 SaO2% (BldA) [Mass fraction] 95 % Herberth Joana Other [employer] Other 08-09-2022 11:00-0400 Systolic blood pressure 133 mm[Hg] Herberth Joana Other [employer] Other 11-17-2021 10:40-0500 Body height 165.1 cm Herberth Joana Other [employer] Other 11-17-2021 10:40-0500 Body mass index (BMI) [Ratio] 37.97 kg/m2 Herberth Joana Other [employer] Other 11-17-2021 10:40-0500 Body temperature 97.8 [degF] Herberth Joana Other [employer] Other 11-17-2021 10:40-0500 Body weight 103.51 kg Herberth Joana Other [employer] Other 11-17-2021 10:40-0500 Diastolic blood pressure 70 mm[Hg] Herberth Joana Other [employer] Other 11-17-2021 10:40-0500 Respiratory rate 18 /min Herberth Joana Other [employer] Other 11-17-2021 10:40-0500 SaO2% (BldA) [Mass fraction] 94 % Herberth Joana Other [employer] Other 11-17-2021 10:40-0500 Systolic blood pressure 130 mm[Hg] Herberth Joana Other [employer] Other 08-30-2021 13:15-0400 Body height 165.1 cm Rena Ginty Other [employer] Other 08-30-2021 13:15-0400 Body mass index (BMI) [Ratio] 36.61 kg/m2 Rena Ginty Other [employer] Other 08-30-2021 13:15-0400 Body temperature 98.7 [degF] Rena Ginty Other [employer] Other 08-30-2021 13:15-0400 Body weight 99.79 kg Rena Ginty Other [employer] Other 08-30-2021 13:15-0400 SaO2% (BldA) [Mass fraction] 90 % Rena Ginty Other [employer] Other Encounters Encounter Date Encounter Type Care Provider Facility Start: 06-21-2024 End: 06-21-2024 ambulatory LEYLA [facility] Start: 06-12-2024 End: 06-12-2024 ambulatory AIDA BLANC Not Available Start: 05-13-2024 End: 05-13-2024 ambulatory HETAL [facility] Start: 05-06-2024 End: 05-06-2024 ambulatory Jayshree Vargas MD Facility:[facility] Start: 04-17-2024 End: 04-17-2024 ambulatory SAUNDERS FAWWAD Not Available Start: 04-15-2024 End: 04-15-2024 ambulatory Jayshree Vargas MD Facility:[facility] Start: 04-11-2024 End: 04-11-2024 ambulatory SAUNDERS FAWWAD Not Available Start: 04-03-2024 End: 04-03-2024 ambulatory SAUNDERS FAWWAD Not Available Start: 03-27-2024 End: 03-27-2024 ambulatory SAUNDERS FAWWAD Not Available Start: 03-14-2024 End: 03-14-2024 ambulatory Steph Collier Work Phone: [facility] Work Phone: Start: 03-14-2024 End: 03-14-2024 Patient encounter procedure Steph Collier Work Phone: [facility] Work Phone: Start: 03-06-2024 Non-patient / Non-visit Steph Collier Work Phone[facility] Work Phone: Start: 02-26-2024 End: [...] [facility] Start: 11-02-2023 End: 11-02-2023 ambulatory SHAIKH EDUARDAWAD Not Available Start: 10-09-2023 End: 10-09-2023 ambulatory Jayshree Vargas MD Facility: [facility] Start: 10-04-2023 End: 10-04-2023 ambulatory FAWWAD Not Available Start: 09-07-2023 End: 09-07-2023 ambulatory Herberth Joana Other [employer] Other Start: 09-07-2023 Telephone encounter Herberth Joana [facility] Start: 08-28-2023 End: 08-28-2023 ambulatory Herberth Joana Other [employer] Other Start: 08-28-2023 Telephone encounter Herberth Joana [facility] Start: 08-21-2023 End: 08-21-2023 ambulatory Jayshree Vargas MD Facility: [facility] Start: 08-17-2023 End: 08-17-2023 ambulatory Herberth Joana Other [employer] Other Start: 08-17-2023 Office outpatient visit 25 minutes Herberth Joana [facility] Start: 04-04-2023 End: 04-04-2023 ambulatory SHAIKH Dimitry CRAROLLMame Facility:[facility] Start: 03-24-2023 End: 03-25-[address] STEPH GRANADOS Facility:[facility] Start: 03-02-2023 End: 03-02-2023 ambulatory Herberth Joana Other [employer] Other Start: 03-02-2023 Office outpatient visit 25 minutes Herberth Joana [facility] Start: 02-25-2023 End: 02-26-2023 ambulatory HERBERTH JOANA Facility:[facility] Start: 02-22-2023 End: 02-23-2023 ambulatory BO JOHNY . Facility:[facility] Start: 12-15-2022 End: 12-16-[address] JACK HALL . Facility:[facility] Start: 12-08-2022 End: 12-08-2022 ambulatory Shaikh Lev Facility:[facility] Start: 12-08-2022 End: 12-08-2022 Admission to same day surgery center MD Shaikh Ohara Work Phone: [facility] Work Phone: Start: 12-08-2022 End: 12-08-2022 ambulatory MD Shaikh Ohara Work Phone: [facility] Work Phone: Start: 11-11-2022 End: 11-11-[address] JACK HALL . Facility:[facility] Start: 11-09-2022 End: 11-09-2022 ambulatory Azkatherine Gonzalezs Other [employer] Other Start: 11-09-2022 Telephone encounter Azkatherine Gonzalezs [facility] Start: 08-19-2022 End: 08-20-2022 ambulatory HERBERTH JOANA Facility:[facility] Start: 08-09-2022 End: 08-09-2022 ambulatory Herberth Joana Other [employer] Other Start: 08-09-2022 Office outpatient visit 10 minutes Herberth Joana [facility] Start: 08-09-2022 Telephone encounter Herberth Joana [facility] Start: 08-05-2022 Telephone encounter Herberth Joana [facility] Start: 08-05-2022 End: 08-06-2022 ambulatory HERBERTH JOANA [employer] Other Start: 07-08-2022 End: 07-08-2022 ambulatory Gato Loco Other [employer] Other Start: 07-08-2022 Telephone encounter Gato Cesar ck [facility] Start: 07-05-2022 End: 07-06-2022 ambulatory SAUNDERS H FAWWAD Facility:[facility] Start: 06-08-2022 End: 06-09-2022 ambulatory SAUNDERS H FAWWAD Facility:[facility] Start: 06-07-2022 End: 06-07-2022 ambulatory SAUNDERS H FAWWAD Facility:[facility] Start: 01-24-2022 End: 01-25-2022 ambulatory PHYSICIAN UNKNOWN Facility:[facility] Start: 11-17-2021 End: 11-17-2021 ambulatory Herberth Joana Other [employer] Other Start: 11-17-2021 Office outpatient visit 15 minutes Herberth Joana [facility] Start: 08-30-2021 Office outpatient visit 15 minutes Rena Ginty [facility] Start: 09-11-2020 End: 09-11-2020 Chart abstracting Miguelito Buck Work Phone: Hematology/Oncology Start: 09-11-2020 End: 09-11-2020 Patient encounter procedure External Provider [facility] Start: 09-11-2020 Results Only External Provider Exter [facility] Start: 09-30-2019 End: 09-30-2019 Patient encounter procedure [facility] Start: 07-07-2017 End: 07-07-2017 Admission to day surgery [facility] Start: 05-24-2004 Evaluation and management of inpatient [facility] Start: 04-26-2004 Evaluation and management of inpatient [facility] Procedures Date Procedure Procedure Detail Performing Clinician Start: 12-08-2022 Colonoscopy MD Shaikh Ohara Work Phone: Start: 09-11-2020 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 [facility] al Provider Start: 09-11-2020 EXTERNAL LAB External P rovider Start: 09-11-2020 EXTERNAL PROCEDURE Exte rnal Provider Start: 09-30-2019 Ultrasonography of b ilateral kidneys Steph Collier Plan of Treatment Date Care Activity Detail Author Start: 12-08-2022 [facility] Start: 07-07-2020 Influenza vaccination INFLUENZA (#1) [facility] Start: 2006 SHINGRIX VACCINE (1 of 2) SHINGRIX VACCINE (1 of 2) [facility] Start: 2006 Tuberculosis screening COLORECTAL CANCER SCREENING,SEE MODIFIER [facility] Start: 2001 DIABETES SCREEN DIABETES SCREEN [facility] Start: 2001 LIPID SCREEN LIPID SCREEN [facility] Start: 1996 Mammography MAMMOGRAM [facility] Start: 1986 HPV TESTING HPV TESTING [facility] Start: 1977 PAP TESTING PAP TESTING [facility] Start: 1975 Urine microalbumin profile DTAP,TDAP,TD (1 - Tdap) [facility] Start: 1974 HEPATITIS C SCREENING HEPATITIS C SCREENING [facility] Start: 1974 HIV SCREENING HIV SCREENING [facility] Patient Education Colon Polypect shahram Hemorrhoids (DC) Diverticulosis (DC) [facility] Work Phone: [facility] Immunizations Immunization Date Immunization Notes Care Provider Henrietta charles 07-18-2018 Depo-Medrol 40 mg Rena Gint y Other [employer] Other 01-31-2018 Depo-Medrol 40 mg Rena Gint y Other [employer] Other 08-09-2017 influenza virus vaccine, unspecified formulation Steph Collier Work Phone: [facility] 08-09-2017 influenza, seasonal, injectable, preservative free Rena Ginty Other [employer] Other Payers Date Payer Category Payer Unknown 2022 Self-pay [id number] 2021 Medicare [id number] 2020 Medicaid [id number] 2019 Medicaid [facility] MED[facility] [id number] 2019-Present Medicaid [id number] 2016 Medicare MEDICARE MEDICAR E A AND B [id number] 2016-Present [place] Medicare [id number] [id number] 1959 Unknown [id number] 1956 Unknown [id number] 2.16.840.1.015016.3.579.2.647 1956 Unknown [id number] 2.16.840.1.072937.3.579.2.593 1956 Unknown [id number] 2.16.840.1.002299.3.579.2.593 1956 Unknown [id number] 2.16.840.1.327594.3.579.2.593 1956 Unknown [id number] 2.16.840.1.007529.3.579.2.593 1956 Unknown [id number] 2.16.840.1.245646.3.579.2.593 1956 Unknown [id number] 2.16.840.1.054210.3.579.2.593 1956 Unknown [id number] 2.16.840.1.838052.3.579.2.593 1956 Unknown [id number] 2.16.840.1.078970.3.579.2.593 1956 Unknown [id number] 2.16.840.1.848264.3.579.2.593 1956 Unknown [id number] 2.16.840.1.840938.3.579.2.593 1956 Unknown [id number] 2.16.840.1.013657.3.579.2.593 1956 Unknown [id number] 2.16.840.1.871879.3.579.2.196 1956 Unknown [id number] 2.16.840.1.077231.3.579.2.196 1956 Unknown [id number] 2.16.840.1.793827.3.579.2.196 1956 Unknown [id number] 2.16.840.1.101787.3.579.2.196 1956 Unknown [id number] 2.16.840.1.622699.3.579.2.196 1956 Unknown [id number] 2.16.840.1.219321.3.579.2.196 1956 Unknown [id number] 2.16.840.1.237746.3.579.2.196 1956 Unknown [id number] 2.16.840.1.127922.3.579.2.125 1956 Unknown [id number] 2.16.840.1.042035.3.579.2.125 1956 Unknown [id number] 2.16.840.1.895151.3.579.2.125 1956 Unknown [id number] 2.16.840.1.768442.3.579.2.1258 1956 Unknown [id number] 2.16.840.1.747226.3.579.2.125 1956 Unknown [id number] 2.16.840.1.058556.3.579.2.1259 1956 Unknown [id number] 2.16.840.1.931159.3.579.2.1258 1956 Unknown [id number] 2.16.840.1.789191.3.579.2.1258 1956 Unknown [id number] 2.16.840.1.400655.3.579.2.1258 1956 Unknown [id number] 2.16.840.1.692245.3.579.2.1258 1956 Unknown [id number] 2.16.840.1.449559.3.579.2.1258 1956 Unknown [id number] 2.16.840.1.829023.3.579.2.9 Medicare [id number] Unknown HCAP/HFA/FAP Active [id number] Unknown [id number] 2.16.840.1.254505.3.579.2.531 Social History Date Type Detail Facility Tobacco smoking stat [facility] Unknown if ever smoked [facility] Start: 1955 Sex Assigned At Female F [facility] Start: 09-11-2020 End: 03-14-2024 Tobacco smoking status NHIS Never smoker [facility] Start: 09-11-2020 Tobacco use and exposure Never used [facility] Start: 09-11-2020 Alcohol intake Lifetime non-d my (finding) [facility] Start: 09-11-2020 History SDOH Alcohol Frequency 1 [facility] Sex Assigned At Not on file [facility] Sex Assigned At Sex Assigned At [facility] [employer] Other Goals Date Patient Goal Desired Activity /State Clinical Notes 08-30-2021 to 05-13-2024 Note Date & Type Note Facility 05-13-2024 Note [facility] Cardiology Clinic Note Chief Complaint: Patient here for 1 year follow up CAD and hypertension. She was recently discharged from [facility] for Covid-19. She says hydrochlorothiazide [...] breath since then. She has seen her launch check out. Her chest pain is noncardiac. She has [...] a past medical history of Asthma, Cancer ([facility]), COPD (chronic obstructive pulmonary disease) ([facility]), Coronary artery disease, GERD (gastroesophageal reflux [...] mouth every other day., Disp: , Rfl: iipmxouvanz-jhkxwaszx-swaalwvm 100-62.5-25 mcg blister with device, , Disp: [...] a (more content not included)... [facility] 09-07-2023 Evaluation note Encounter Date Diagnosis Assessment Notes Sep, Hypomagnesemia (ICD-10 - E83.42) [employer] Other 10-23-2023 Evaluation note* Encounter Date Diagnosis Assessment Notes Treatment Notes Treatment Clinical Notes Aug, Nico bolden cr kid I-IV (ICD-10 - I12.9) [employer] Other 10-12-2023 Evaluation note* Encounter Date Diagnosis [...] PPI induced GI losses. Continue oral Magnesium [employer] Other 05-19-2023 NotePROCEDURE: XR HIP RT 2 3V W PELVIS HISTORY: Pain in right hip joint , chronic COMPARISON: XR L-spine 02/26/2019, XR left hip with pelvis 03/11/2017 FINDINGS: BONES:Complete loss of the right hip joint space with cpjk-tr-[id number] articulation, subchondral sclerosis and cysts, and large periarticular degenerative osteophytes. No fracture or dislocation. Left hip replacement. Mechanical fusion of L5-S1 and moderate dextroscoliosis of lumbar spine. SOFT TISSUES:No visible soft tissue swelling. EFFUSION:None visible. OTHER: Negative. IMPRESSION: 1. Marked degenerative joint disease of the right hip; progressed since prior study. 2. Stable surgical changes. Electronically authenticated by: STEPH GRANADOS Date: 2023-03-24 12:55[facility]04-27-2023 Evaluation note* Encounter Date Diagnosis Assessment Notes [...] PPI induced GI losses. Continue oral Magnesium [employer] Other [facility]* Encounter Date Diagnosis Assessment Notes Treatment Notes Treatment Clinical Notes Nov, Hypokalemia (ICD-10 - E87.6) Nov, Hypomagnesemia (ICD-10 - E83.42) [employer] Other 10-04-2022 Evaluation note* Encounter Date Diagnosis [...] office does not accept her new insurance. [employer] Other 09-02-2022 Evaluation note* Encounter Date Diagnosis Assessment Notes Treatment Notes Treatment Clinical Notes Jul, History of colon cancer (ICD-10 - Z85.038) [employer] Other 01-12-2022 Evaluation note* Encounter Date Diagnosis [...] potassium wasting. I have prescribed oral potassium. [employer] Other [id number] Evaluation note* Encounter Date Diagnosis Assessment Notes [...] Patient care instructions given in writting by [facility] Care At Home document [employer] Other Evaluation noteNo InformationNort [employer] Other Evaluation note* Diagnosis Onset Date Resolution Status History of colon cancer acut e [facility] Work Phone: Evaluation note* Diagnosis Onset Date Resolution Status Hypokalemia acute Hypomagnesemia acute Stage 3 chronic kidney disease acute COVID noneactive Pneumonia noneactive [facility] Work Phone: Hislqvz general Narrative - Reported* Type Description Date [...] IN 08/2019 Hospitalization History HIP REVISION 03/2020 [employer] Other [facility] general Narrative - Reported* Type Description Date [...] Hospitalization History COVID X 2 WEEKS 04/2023 [employer] Other Hospital Discharge instructions Additional Instructions DISCHARGE [...] if you have any problems. -Office number [phone] Work Phone: Advance Directives No Advanced [...] or prosecute any alcohol or drug abuse patient.[facility] the event this information is protected by the Federal Confidentiality of Alcohol and Drug Abuse Patient Records regulations: The Federal rules restrict any use of the information to criminally investigate or prosecute any alcohol or drug abuse patient.[facility] the event this information is protected by the Federal Confidentiality of Alcohol and Drug Abuse Patient Records regulations: The Federal rules restrict any use of the information to criminally investigate or prosecute any alcohol or drug abuse patient.[facility] the event this information is protected by the Federal Confidentiality of Alcohol and Drug Abuse Patient Records regulations: The Federal rules restrict any use of the information to criminally investigate or prosecute any alcohol or drug abuse patient.[facility] INFORMATION SOURCE (unrecogn ized section and content) DATE CREATED AUTHOR 03/03/2022 [facility] DATE CREATED AUTHOR AUTHOR'S ORGANIZ ATION [facility]20[facility] DATE CREATED AUTHOR AUTHOR'S ORGANIZ ATION 06/07/2023 [facility] DATE CREATED AUTHOR AUTHOR'S ORGANIZ ATION 05/09/2024 [facility] DATE CREATED AUTHOR AUTHOR'S ORGANIZ ATION 06/14/2024 [facility] DATE CREATED AUTHOR AUTHOR'S ORGANIZ ATION 06/23/2024 [facility] REASON FOR VISIT (unrecogniz ed section and content) #14 BLACK ALICIA, COUGH, CONGES TIONCKDCLINICALNo InformationCKD and HYpokalemiaClinicalClinicalCKD and HTNCKD and HTNREFILLREFILL Care Teams (unrecognized sec tion and content) Team Status: Inactive Member Role Status Dates Gato Loco MD Attending Provider Active Shaikh Lev MD [...] BE BASED ON THE PRIMARY CLINICAL RECORDS. [facility] [employer] [facility]. provides no warranty or guarantee of the accuracy or completeness of information in this document.
[2024-06-24 08:39] VITALS: BP 127/78; PULSE 72; TEMP 36.3; O2SAT 96
[2024-06-24 09:32] VITALS: BP 150/71; BP 150/72; PULSE 68; O2SAT 93; O2SAT 95
[2024-06-24] MEDS: LIDOCAINE HCL 2% 400 MG/20 ML MDV 8 ML INJ (09:33)
[2024-06-24] MEDS: BUPIVACAINE HCL 0.25% PF 25 MG/10 ML VIAL 2 ML INJ (09:33)
[2024-06-24] MEDS: TRIAMCINOLONE ACETONIDE 40 MG/ML VIAL INJ (09:34)
--- NOTE | 2024-06-24 09:41 | P.ON_ITS ---
Date of procedure: 06/24/24 Pre-op diagnosis: Pain due to thoracic spondylosis Post-op diagnosis: same as pre-op Procedure: Procedure: Right T7-8, 8-9 radiofrequency ablation Medications: Bupivacaine 0.25% 3cc, lidocaine 2% 3cc, dexamethasone 10mg The patient was seen and examined in the preoperative holding area.? The site was marked.? Written informed consent was obtained and placed on the chart.? The patient was brought to the medical procedure unit and placed in the prone position.? A timeout was completed verifying correct patient, procedure, positioning, and special requirements.? The skin overlying the target points, the designated medial branch, were prepped and draped in the usual sterile fashion.? The target point was achieved with a 20-gauge 15 cm with a 10 mm curved active tip radiofrequency cannula under direct fluoroscopic visualization.? The needle was inserted at level T7 on the right side. Needle tip position was confirmed with lateral fluoroscopic position.? Motor stimulation was carried out at 2 Hz up to 5 volts with the absence of extremity activity.? This was repeated at level T8, 9 on right side.?? Sensory stimulation was carried out.? Concordant pain was realized at the above- mentioned sites.? Then radiofrequency lesioning was carried out times 90 seconds at 80 degrees times 2 lesions at each level.? The radiofrequency probe was removed prior to cannula removal.? The above-mentioned injectate was placed in 1 mL increments.? The needle was removed.? Insertion sites were covered.? The patient was taken to the postoperative recovery area and monitored for an appropriate length of time before being found suitable for discharge in the company of a responsible adult. Anesthesia: Local Surgeon: Jayshree Vargas Pathology: none sent Condition: stable Disposition: no change
== END 2024-06-24 09:46 | disposition home or self-care (01) ==
LOC: SURGOUT 08:10
PROVIDERS: PCP Internal Medicine; Visit Provider Anesthesiology
DX: M47.814 Spondylosis without myelopathy or radiculopathy, thoracic region (principal)
CPT/HCPCS: 64633; 64634; J0665; J3301

== ENCOUNTER 2024-06-28 19:37 | Emergency (ER) | payer OTHER, SELFPAY ==
[2024-06-28] VITALS (14 sets, daily range): BP systolic 113–126; BP diastolic 61–63; PULSE 70–84; TEMP 37.7; O2SAT 93–96; BMI 40.5
--- OUTSIDE RECORDS SUMMARY | 2024-06-28 19:44 | XMS_ITS | CCD ---
Author Organization [facility] Care Team Providers Care Business Intelligence Reporting Analyst Name Role Phone Steph Collier Attending Provider Unavailable Chantel Rainey Primary Care Provider Unavailabl e Joana, Herberth Attending Provider Unavailable Unavailable Primary Care Provider Unavailabl e UNKNOWN, PHYSICIAN Referring Unavailable JOO BRAVO Attending Unavailable JOO BRAVO Admitting Unavailable UNKNOWN, PHYSICIAN Primary Care Unavailable Rena Hurd Unavailable Joana, Herberth Unavailable Gato Loco Unavailable [phone] Steph Collier Attending Provider [phone] MD Gato Loco Attending Provider [phone] MD Nicky Ohara Primary Care Provider [phone] Gilma Trent Unavailable JOANA, HERBERTH Attending Unavailable [...] e FAWWAD, SAUNDERS H Primary Care Unavailable P[place], DR BRITTANY Elizondo Consulting Unavailable ZIEBBETH, DR [...] Chatterjee Admitting Unavailabl Steph Strange Attending Provider [phone] Giedraitis MD, Andrius Vytautas Attending Unavailable Giedraitis MD, Andrius Vytautas Attending Unavailable Giedraitis MD, Andrius Vytautas Attending Unavailable Giedraitis MD, Andrius Vytautas Attending Unavailable Giedraitis MD, Andrius Vytautas Attending Unavailable Giedraitis MD, Andrius Vytautas Attending Unavailable Giedraitis MD, Andrius Vytautas Attending Unavailable FAWWAD, SAUNDERS Attending Unavailable FAWWAD, SAUNDERS Attending Unavailable FAWWAD, SAUNDERS Attending Unavailable FAWWAD, SAUNDERS Attending Unavailable AICHHOLROSHNI Vega Attending Unavailable FAWWAD, SAUNDERS Attending Unavailable FAWWAD, SAUNDERS Attending Unavailable FAWWAD, SAUNDERS Attending Unavailable FAWWAD, SAUNDERS Attending Unavailable FAWWAD, SAUNDERS Attending Unavailable FAWWAD, SAUNDERS Attending Unavailable AIDA BLANC Attending UnavailEMELIA Vick Referring Unavailable HETAL SCALES Attending Unavailable EMELIA YOO Attending Unavailable BO MCCLAIN Referring Unavailable Unavailable Unavailable Unavailable Allergies Allergy Classification Reported Allergen(s) Allergy Type Date of Onset Reaction(s) Facility (5 sources) fentaNYL; Translations: [fentanyl] Drug Allergy 07-07-20 17 Hallucinating [facility] (1 source) linezolid; Translations: [LINEZOLID] Drug [...] 1 puff Inhalation Once a day Active [id number] 200 actuat albuterol 0.09 mg/actuat metered dose [...] 14, 2024 12:00am Start: 12-08-2022 End: 03-14-2024 Jknszwppvup-Ofymmbivf-Fgvtns er (Trelegy Ellipta) 200-62.5-25 mcg blister with [...] 14, 2024 12:00am take 1 [facility] twenty-four hours Singulair 10 [...] 14, 2024 10:41am take [address] [facility] every twelve hours Omeprazole 20 MG 1 CAPSULE Orally TWICE A DAY Active take [address] [facility] once daily Omeprazole 20 MG 1 capsule [...] Active Start: 08-05-2022 take 1 tablet by [facility] every twelve hours Potassium Chloride ER 20 [...] 1 puff(s) by inhalation twice daily Ipratropium [place] (Atrovent Hfa) 17 mcg/actuation Hfa Aerosol Inhaler [...] TOPHACEOUS DZ] Onset: 2 Resolved: 2 Episodic Other upper respiratory disease (2 sources) Other specified diseases of upper respiratory tract; Translations: [Other specified diseases of upper respiratory tract] Onset: 4 Episodic Pneumonia (except that caused by tuberculosis or sexually transmitted disease) (3 sources) Pneumonia, unspecified organism; Translations: [Pneumonia, organism unspecified] Onset: 4 03-14-2024 Episodic Pulmonary heart disease (2 sources) [...] Test Name Value Interpretation Reference Range Facility Telemedicine 06-25-2024 Telemedicine [id number] Nell Champion 1955 F Date Provider Department Center 06/25/2024 EMELIA MORALES ONC DCC Family History Problem Relation Age of Onset Heart failure Mother Heart disease Father Family Status - Relation Status Age at Mother Father Level of Service:72600 [place] PHYS/QHP TELEPHONE EVALUATION 21-30 MIN () Reason for Visit and Comments: 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 CT DONE 04-11-24 AND 06-07-24 AT [facility]. RECORDS SCANNED INTO MEDIA. FILMS REQUESTED- requested 3 times and [employer] IS DOWN. Could not get films. Normal [facility] Office Visiton 05-13-2024 Follow-up visit [id number] Yannick Championclarice chioma Meng 1955 F Date Provider Department Center 05/13/2024 Siddharth-HETAL SCALES CARD [facility] Family History Problem Relation Age of Onset Heart failure Mother Heart disease Father Family Status - Relation Status Age at Mother Father Level of Service:07819 [place] OFFICE/OUTPATIENT ESTABLISHED MOD MDM 30 MIN Normal [...] [facility] Chloride [Moles/Vol] 104 mmol/L 98-107 [facility] CO2 [Moles/Vol] 32.2 mmol/L 21.0-32.0 [facility] Creatinine [Mass/Vol] 0.97 mg/dL 0.55-1.02 [facility] GFR/1.73 sq M.predicted MDRD (S/P/Bld) [Vol rate/Area] mL/min/{1.73_m2} >=60 [facility] Glucose [Mass/Vol] 67 mg/dL 74-106 [facility] Magnesium [Mass/Vol] 1.9 mg/dL 1.8-2.4 [facility] Potassium [Moles/Vol] 3.4 mmol/L 3.5-5.1 [facility] Sodium [Moles/Vol] 143 mmol/L 136-145 [facility] Urate [Mass/Vol] 5.0 mg/dL 2.6-6.0 [facility] Urea nitrogen [Mass/Vol] 16.0 mg/dL 7.0-18.0 [facility] [...] Vit D defi cient20-<30 ng/mL Vit D nlcvrmaitpzl54-740 ng/mL Vit D sufficient>100 ng/mL Potential Toxicity Parathyroid Hormone (Intact) 36 pg/mL 15-65 [facility] Comment on above: Performed at: [facility] [place] [id number] Director: Raphael Marrero PhD, Phone: [phone] Phosphorus Level 3.2 mg/dL 2.6-4.7 [facility] Platelet mean volume Auto (B ld) [Entitic vol]on 03-06-2024 Platelet mean volume (Bld) [Entitic vol] 9.1 fL 9.5-13.5 [facility] Platelets Auto (Bld) [#/Vol] on 03-06-2024 Platelets (Bld) [#/Vol] 247 10 3/uL 150-450 [facility] RBC Auto (Bld) [#/Vol]on RBC (Bld) [#/Vol] 4.01 10 6/uL 4.20-5.40 [facility] Serum or plasma anion gap de terminationon 03-06-2024 Anion gap [Moles/Vol] 10.2 mmol/L [facility] SYMPTOMATIC COVID-19 ANTIGEN on 04-04-2023 EUA Statement SEE BELOW Normal [facility] Comment on above: Result [...] sooner. Performed By: #### C VDAGS #### [facility] [address] [place] [id number] Shayne Roldan SARS-CoV-2 (COVID-19) RNA KAYLEE+probe Ql (Unsp spec) Positive Abnormal NEGATIVE [facility] Comment on above: Performed By: #### C VDAGS #### [facility] [address] [place] [address] [address] Shayne Roldan XR LSPINE 2_3 VIEWSon [...] STEPH GRANADOS Date: 2023-03-24 12:52 Normal [facility] PTH INTACTon 02-27-2023 PTH, Intact 87 pg/mL Critically high 15-65 [facility] Comment on above: Performed By: #### P THINT #### [facility] [address] [place] [address] Dr. Shayne Roldan HEMOGRAM AND PLATELon 2022 Hematocrit (Bld) [Volume fraction] 44.4 % Normal 36.0-48.0 [facility] Comment on above: Performed By: #### H H #### [facility] [address] [place] [address] Dr. Shayne Roldan Hemoglobin (Bld) [Mass/Vol] 14.5 g/dL Normal 12.0-16.0 [facility] Comment on above: Performed By: #### H H #### [facility] [address] [place] [address] Dr. Shayne Roldan MCH (RBC) [Entitic mass] 30.3 pg Normal 26.7-34.0 [facility] Comment on above: Performed By: #### H H #### [facility] [address] [place] [address] Dr. Shayne Roldan MCHC (RBC) [Mass/Vol] 32.7 g/dL Normal 29.9-35.2 [facility] Comment on above: Performed By: #### H H #### [facility] [address] [place] [address] [address] Shayne Roldan MCV (RBC) [Entitic vol] 92.9 fL Normal 81.0-99.0 [facility] Comment on above: Performed By: #### H H #### [facility] [address] [place] [address] Dr. Shayne Roldan PLT 367 103/ul Normal 150-450 [facility] Comment on above: Performed By: #### H H #### [facility] [address] [place] [address] [address] Shayne Roldan RBC 4.78 106/ul Normal 4.20-5.40 [facility] Comment on above: Performed By: #### H H #### [facility] [address] [place] [address] Dr. Shayne Roldan WBC 9.9 103/ul Normal 4.0-11.0 [facility] Comment on above: Performed By: #### H H #### [facility] [address] [place] [address] Dr. Shayne Roldan MAGNESIUMon 02-25-2023 Magnesium [Mass/Vol] 1.6 mg/dL Critically low 1.8-2.4 [facility] Comment on above: Performed By: #### M G, RENAL, URIC #### [facility] [address] [place] [address] Dr. Shayne Roldan RENAL FUNCTION PANELon 02-25 Albumin [Mass/Vol] 3.4 g/dL Normal 3.4-5.0 [facility] Comment on above: Performed By: #### M G, RENAL, URIC #### [facility] [address] [place] [address] [address] Shayne Roldan Calcium [Mass/Vol] 8.7 mg/dL Normal 8.5-10.1 [facility] Comment on above: Performed By: #### M G, RENAL, URIC #### [facility] [address] [place] [address] [address] Shayne Roldan Chloride [Moles/Vol] 104 mmol/L Normal 98-107 [facility] Comment on above: Performed By: #### M G, RENAL, URIC #### [facility] [address] [place] [address] [address] Shayne Roldan CO2 [Moles/Vol] 25.9 mmol/L Normal 21.0-32.0 [facility] Comment on above: Performed By: #### M G, RENAL, URIC #### [facility] [address] [place] [address] Dr. Shayne Roldan Creatinine [Mass/Vol] 1.19 mg/dL Critically high 0.55-1.02 [facility] Comment on above: Performed By: #### M G, RENAL, URIC #### [facility] [address] [place] [address] Dr. Shayne Roldan EGFR-AF UGANDAN 55 mL/min/1.73m2 Critically low >=60 [facility] Comment on above: Performed By: #### M G, RENAL, URIC #### [facility] [address] [place] [address] Dr. Shayne Roldan EGFR-NON AF UGANDAN 45 mL/min/1.73m2 Critically low >=60 [facility] Comment on above: Performed By: #### M G, RENAL, URIC #### [facility] [address] [place] [address] Dr. Shayne Roldan Glucose [Mass/Vol] 193 mg/dL Critically high 74-106 [facility] Comment on above: Performed By: #### M G, RENAL, URIC #### [facility] [address] [place] [address] Dr. Shayne Roldan Phosphate [Mass/Vol] 3.2 mg/dL Normal 2.6-4.7 [facility] Comment on above: Performed By: #### M G, RENAL, URIC #### [facility] [address] [place] [address] Dr. Shayne Roldan Potassium [Moles/Vol] 3.9 mmol/L Normal 3.5-5.1 [facility] Comment on above: Performed By: #### M G, RENAL, URIC #### [facility] [address] [place] [address] [address] Shayne Roldan Sodium [Moles/Vol] 140 mmol/L Normal 136-145 [facility] Comment on above: Performed By: #### M G, RENAL, URIC #### [facility] [address] [place] [address] Dr. Shayne Roldan Urea nitrogen [Mass/Vol] 17.0 mg/dL Normal 7.0-18.0 [facility] Comment on above: Performed By: #### M G, RENAL, URIC #### [facility] [address] [place] [address] Dr. Shayne Roldan UA RANDOM W/MICROSCOPICon BACTERIA TRACE Abnormal NONE SEEN [facility] Comment on above: Performed By: #### M G, RENAL, URIC #### [facility] [address] [place] [address] Dr. Shayne Roldan Bilirubin Ql (U) Negative Normal NEGATIVE [facility] Comment on above: Performed By: #### M G, RENAL, URIC #### [facility] [address] [place] [address] Dr. Shayne Roldan CAST NONE SEEN Normal NONE SEEN [facility] Comment on above: Performed By: #### M G, RENAL, URIC #### [facility] [address] [place] [address] Dr. Shayne Roldan Clarity (U) CLEAR Normal CLEAR [facility] Comment on above: Performed By: #### M G, RENAL, URIC #### [facility] [address] [place] [address] Dr. Shayne Roldan Color (U) LT. YELLOW Normal YELLOW [facility] Comment on above: Performed By: #### M G, RENAL, URIC #### [facility] [address] [place] [address] Dr. Shayne Roldan Crystals LM Nom (Urine sed) NONE SEEN Normal NONE SEEN [facility] Comment on above: Performed By: #### M G, RENAL, URIC #### [facility] [address] [place] [address] Dr. Shayne Roldan Epithelial cells LM Ql (Urine sed) RARE Normal NONE SEEN /RARE [facility] Comment on above: Performed By: #### M G, RENAL, URIC #### [facility] [address] [address] [address] Shayne Roldan Glucose Ql (U) Negative Normal NEGATIVE [facility] Comment on above: Performed By: #### M G, RENAL, URIC #### [facility] [address] [place] [address] [address] Shayne Roldan Hemoglobin Ql (U) Negative Normal NEGATIVE [facility] Comment on above: Performed By: #### M G, RENAL, URIC #### [facility] [address] [place] [address] [address] Shayne Roldan Ketones Ql (U) Negative Normal NEGATIVE [facility] Comment on above: Performed By: #### M G, RENAL, URIC #### [facility] [address] [place] [address] Dr. Shayne Roldan LEUKOCYTES Negative Normal NEGATIVE [facility] Comment on above: Performed By: #### M G, RENAL, URIC #### [facility] [address] [place] [address] [address] Shayne Roldan MUCOUS NONE SEEN Normal NONE SEEN [facility] Comment on above: Performed By: #### M G, RENAL, URIC #### [facility] [address] [place] [address] [address] Shayne Roldan Nitrite Ql (U) Negative Normal NEGATIVE [facility] Comment on above: Performed By: #### M G, RENAL, URIC #### [facility] [address] [place] [address] [address] Shayne Roldan pH (U) 5.0 [pH] Normal 5-9 [facility] Comment on above: Performed By: #### M G, RENAL, URIC #### [facility] [address] [place] [address] [address] Shayne Roldan RBC 0-2 Normal 0-2 [facility] Comment on above: Performed By: #### M G, RENAL, URIC #### [facility] [address] [place] [address] [address] Shayne Roldan SPEC GRAVITY 1.025 Normal 1.005-<=1.025 [facility] Comment on above: Performed By: #### M G, RENAL, URIC #### [facility] [address] [place] [address] Dr. Shayne Roldan UA PROTEIN Negative Normal NEGATIVE/ TRACE [facility] Comment on above: Performed By: #### M G, RENAL, URIC #### [facility] [address] [place] [address] [address] Shayne Roldan Urobilinogen Qn (U) 0.2 {Rogelio'U}/dL Normal 0.2 - 1. 0 [facility] Comment on above: Performed By: #### M G, RENAL, URIC #### [facility] [address] [place] [address] Dr. Shayne Roldan WBC 0-2 Abnormal NONE SEEN [facility] Comment on above: Performed By: #### M G, RENAL, URIC #### [facility] [address] [place] [address] Dr. Shayne Roldan URIC ACID SERUMon 02-25-2023 Urate [Mass/Vol] 6.1 mg/dL Critically high 2.6-6.0 [facility] Comment on above: Performed By: #### M G, RENAL, URIC #### [facility] [address] [place] [address] Dr. Shayne Roldan URINE T PROTEIN CREAT RATIOo n 02-25-2023 Protein (U) [Mass/Vol] 13.0 mg/dL Critically high <=12.0 [facility] Comment on above: Performed By: #### M G, RENAL, URIC #### [facility] [address] [place] [address] Dr. Shayne Roldan UR PROT CREAT RAT 0.16 Normal [facility] Comment on above: Performed By: #### M G, RENAL, URIC #### [facility] [address] [place] [address] Dr. Shayne Roldan URINE CREAT 83.60 mg/dL Normal 20.00-300.00 [facility] Comment on above: Performed By: #### M G, RENAL, URIC #### [facility] [address] [place], [place] [address] Dr. Shayne Roldan VITAMIN D 25 OHon 02-25-2023 VIT D 25-OH 41.6 ng/mL Normal [facility] Comment on above: Performed By: #### M G, RENAL, URIC #### [facility] [address] [place], [place] [address] Dr. Shayne Roldan VIT D RANGES SEE BELOW Normal [facility] Comment on above: Result Comment: <20 ng/mL Vit D deficient 20 - <30 ng/mL Vit D insufficient 30 - 100 ng/mL Vit D sufficient >100 ng/mL Potential Toxicity Performed By: #### M G, RENAL, URIC #### [facility] [address] [id number] Shayne Roldan XR CHEST 2 Von [...] BRITTANY GALDAMEZ Date: 2023-02-22 16:15 Normal [facility] MAMM SCREEN 3D PRATEEK CADon 12-15-2022 MAMM SCREEN 3D PRATEEK CAD Patient: DIANA CHAMPION Exam Date: 12/15/2022 : 1955 Gender:F Ordering : DR JACK HALL . Admission #: [id number] Family : Order #: [id number] CLICK HERE TO VIEW EXAM RADIOLOGY REPORT PROCEDURE: MAMMOGRAM SCREENING 3D BILATERAL CAD COMPARISON: MAMM SCREEN 3D PRATEEK CAD, 11/26/2021. INDICATIONS: Calculator Name NCI Breast Cancer Risk Assessment Tool 5 Year Breast Cancer Risk 1.20% Lifetime Breast Cancer Risk 4.40% Personal Breast Cancer No Personal Ovarian Cancer No Treatments Excision, radiation, chemotherapy Family Cancers None LOCATION: [facility] BREAST COMPOSITION: Almost entirely fatty. FINDINGS: [...] Walters MD on 12/15/2022 at 10:51 Normal [facility] XR DEXA BONE DENSITYon 12-15 [...] by: STEPH GRANADOS Date: 2022-12-15 09:50 Normal [facility] Fran 12-08-2022 L - -------- Specimen: [id number] Received: 12/08/22 Status: AIMEENatalya Kay Num: [id number] Spec Type: Surgical Subm Dr: Gato Loco MD Tissues: A Colon Biopsy (DESC COL POLYP) Procedures: HE/2, Gross/Micro L4 -------- Age/ Patient Sex Location Account Attending Physician -------- Diana Champion 67/F [id number] Gato Loco MD -------- SPEC NUM: [id number] RECD: 12/08/22 STATUS: CELIA KAY NUM: [id number] KENDRA: 12/08/22 [facility] DR: Gato Loco MD ENTERED: 12/08/22-[address] [facility] [address]: KHRIS TYPE: Surgical DEPT: S ENTERED BY: [id number] RECV BY: [id number] ORDERED: HE/2, Gross/Micro L4 ORDERED: HE/2, Gross/Micro [...] support the above pathologic diagnosis. CPT Codes 13342 -------- -------- Specimen: [id number] Received: 12/08/22 Status: CELIA Eliza Num: [id number] Spec Type: Surgical Subm Dr: Gato Loco MD Tissues: A Colon Biopsy (DESC COL POLYP) Procedures: Shagufta COTTER/Dionna L4 -------- Patient: Diana Champion [id number] (Continued) -------- Signed (signature on file) Eunice Rosa MD 12/09/22 [address] [facility] PAP ACOG PANEL 2: 30 to 65on 11-16-2022 . . Normal [facility] Comment on above: Performed By: #### [id number] #### [facility] [address] [place] [address] Dr. Shayne Roldan Age Gdln ACOG Testing Comment [facility] Comment on above: Result Comment: <21 or >65 or no age provided Performed By: #### [id number] #### [facility] [address] [place] [address] Dr. Shayne Roldan DIAGNOSIS: Comment [facility] Comment on above: Result Comment: NEGA TIVE FOR INTRAEPITHELIAL LESION OR MALIGNANCY. Performed By: #### [id number] #### [facility] [address] [place] [address] Dr. Shayne Roldan Methodology: Comment [facility] Comment on above: Result Comment: This liquid based ThinPrep(R) pap test was screened with the use of an image guided system. Performed By: #### [id number] #### [facility] [address] [place] [address] Dr. Shayne Roldan Note: Comment [facility] Comment on above: Result Comment: The Pap smear is a screening test designed to aid in the detection of premalignant and malignant conditions of the uterine cervix. It is not a diagnostic procedure and should not be used as the sole means of detecting cervical cancer. Both false-positive and false-negative reports do occur. . Performed By: #### [id number] #### [facility] [address] [place] [address] Dr. Shayne Roldan Performed by: Comment Normal [facility] Comment on above: Result Comment: Onur Aguilar Certified Pesticide Applicator (ASCP) Performed By: #### [id number] #### [facility] [address] [place] [address] Dr. Shayne Roldan Specimen adequacy: Comment [facility] Comment on above: Result Comment: Sati sfactory for evaluation. Endocervical and/or squamous metaplastic cells (endocervical component) are present. Performed By: #### [id number] #### [facility] [address] [place] [address] Dr. Shayne Roldan RENAL FUNCTION PANELon 08-19 Albumin [Mass/Vol] 3.4 g/dL Normal 3.4-5.0 [facility] Comment on above: Performed By: #### M G, RENAL, URIC #### [facility] [address] [address] [address] Shayne Roldan Calcium [Mass/Vol] 8.4 mg/dL Critically low 8.5-10.1 [facility] Comment on above: Performed By: #### M G, RENAL, URIC #### [facility] [address] [address] [address] Shayne Roldan Chloride [Moles/Vol] 103 mmol/L Normal 98-107 [facility] Comment on above: Performed By: #### M G, RENAL, URIC #### [facility] [address] [place] [address] Dr. Shayne Roldan CO2 [Moles/Vol] 27.8 mmol/L Normal 21.0-32.0 [facility] Comment on above: Performed By: #### M G, RENAL, URIC #### [facility] [address] [address] [address] Shayne Roldan Creatinine [Mass/Vol] 1.02 mg/dL Normal 0.55-1.02 [facility] Comment on above: Performed By: #### M G, RENAL, URIC #### [facility] [address] [address] [address] Shayne Roldan EGFR-AF UGANDAN >60 Normal >=60 [facility] Comment on above: Performed By: #### M G, RENAL, URIC #### [facility] [address] [address] [address] Shayne Roldan EGFR-NON AF UGANDAN 54 mL/min/1.73m2 Critically low >=60 [facility] Comment on above: Performed By: #### M G, RENAL, URIC #### [facility] [address] [address] [address] Shayne Roldan Glucose [Mass/Vol] 110 mg/dL Critically high 74-106 [facility] Comment on above: Performed By: #### M G, RENAL, URIC #### [facility] [address] [place] [address] Dr. Shayne Roldan Phosphate [Mass/Vol] 2.3 mg/dL Critically low 2.6-4.7 [facility] Comment on above: Performed By: #### M G, RENAL, URIC #### [facility] [address] [place] [address] Dr. Shayne Roldan Potassium [Moles/Vol] 3.2 mmol/L Critically low 3.5-5.1 [facility] Comment on above: Performed By: #### M G, RENAL, URIC #### [facility] [address] [place] [address] Dr. Shayne Roldan Sodium [Moles/Vol] 138 mmol/L Normal 136-145 [facility] Comment on above: Performed By: #### M G, RENAL, URIC #### [facility] [address] [place] [address] Dr. Shayne Roldan Urea nitrogen [Mass/Vol] 14.0 mg/dL Normal 7.0-18.0 [facility] Comment on above: Performed By: #### M G, RENAL, URIC #### [facility] [address] [place] [place] [address] Dr. Shayne Roldan PTH INTACTon 08-06-2022 PTH, Intact 40 pg/mL Normal 15-65 [facility] Comment on above: Performed By: #### M G, RENAL, URIC #### [facility] [address] [place] [address] Dr. Shayne Roldan HEMOGRAM AND PLATELon 2021 Hematocrit (Bld) [Volume fraction] 39.8 % Normal 36.0-48.0 [facility] Comment on above: Performed By: #### M G, RENAL, URIC #### [facility] [address] [place] [address] Dr. Shayne Roldan Hemoglobin (Bld) [Mass/Vol] 13.4 g/dL Normal 12.0-16.0 [facility] Comment on above: Performed By: #### M G, RENAL, URIC #### [facility] [address] [address] [address] Shayne Roldan MCH (RBC) [Entitic mass] 30.5 pg Normal 26.7-34.0 [facility] Comment on above: Performed By: #### M G, RENAL, URIC #### [facility] [address] [address] [address] Shayne Roldan MCHC (RBC) [Mass/Vol] 33.7 g/dL Normal 29.9-35.2 [facility] Comment on above: Performed By: #### M G, RENAL, URIC #### [facility] [address] [place] [address] Dr. Shayne Roldan MCV (RBC) [Entitic vol] 90.5 fL Normal 81.0-99.0 [facility] Comment on above: Performed By: #### M G, RENAL, URIC #### [facility] [address] [place] [address] Dr. Shayne Roldan PLT 299 103/ul Normal 150-450 [facility] Comment on above: Performed By: #### M G, RENAL, URIC #### [facility] [address] [place] [address] Dr. Shayne Roldan RBC 4.40 106/ul Normal 4.20-5.40 [facility] Comment on above: Performed By: #### M G, RENAL, URIC #### [facility] [address] [place] [address] Dr. Shayne Roldan WBC 8.8 103/ul Normal 4.0-11.0 [facility] Comment on above: Performed By: #### M G, RENAL, URIC #### [facility] [address] [place] [address] Dr. Shayne Roldan MAGNESIUMon 08-05-2022 Magnesium [Mass/Vol] 1.5 mg/dL Critically low 1.8-2.4 [facility] Comment on above: Performed By: #### M G, RENAL, URIC #### [facility] [address] [place] [address] Dr. Shayne Roldan RENAL FUNCTION PANELon 08-05 Albumin [Mass/Vol] 3.5 g/dL Normal 3.4-5.0 [facility] Comment on above: Performed By: #### M G, RENAL, URIC #### [facility] [address] [address] [address] Shayne Roldan Calcium [Mass/Vol] 8.4 mg/dL Critically low 8.5-10.1 [facility] Comment on above: Performed By: #### M G, RENAL, URIC #### [facility] [address] [address] [address] Shayne Roldan Chloride [Moles/Vol] 101 mmol/L Normal 98-107 [facility] Comment on above: Performed By: #### M G, RENAL, URIC #### [facility] [address] [place] [address] Dr. Shayne Roldan CO2 [Moles/Vol] 29.5 mmol/L Normal 21.0-32.0 [facility] Comment on above: Performed By: #### M G, RENAL, URIC #### [facility] [address] [place] [address] Dr. Shayne Roldan Creatinine [Mass/Vol] 1.04 mg/dL Critically high 0.55-1.02 [facility] Comment on above: Performed By: #### M G, RENAL, URIC #### [facility] [address] [place] [address] Dr. Shayne Roldan EGFR-AF UGANDAN >60 Normal >=60 [facility] Comment on above: Performed By: #### M G, RENAL, URIC #### [facility] [address] [place] [address] Dr. Shayne Roldan EGFR-NON AF UGANDAN 53 mL/min/1.73m2 Critically low >=60 [facility] Comment on above: Performed By: #### M G, RENAL, URIC #### [facility] [address] [place] [address] Dr. Shayne Roldan Glucose [Mass/Vol] 92 mg/dL Normal 74-106 [facility] Comment on above: Performed By: #### M G, RENAL, URIC #### [facility] [address] [address] [address] Shayne Roldan Phosphate [Mass/Vol] 2.4 mg/dL Critically low 2.6-4.7 [facility] Comment on above: Performed By: #### M G, RENAL, URIC #### [facility] [address] [place] [address] Dr. Shayne Roldan Potassium [Moles/Vol] 2.8 mmol/L Critically low 3.5-5.1 [facility] Comment on above: Performed By: #### M G, RENAL, URIC #### [facility] [address] [address] [address] Shayne Roldan Sodium [Moles/Vol] 137 mmol/L Normal 136-145 [facility] Comment on above: Performed By: #### M G, RENAL, URIC #### [facility] [address] [place] [address] Dr. Shayne Roldan Urea nitrogen [Mass/Vol] 10.0 mg/dL Normal 7.0-18.0 [facility] Comment on above: Performed By: #### M G, RENAL, URIC #### [facility] [address] [place] [address] Dr. Shayne Roldan UA RANDOM W/MICROSCOPICon BACTERIA SMALL Abnormal NONE SEEN [facility] Comment on above: Performed By: #### U AMIC #### [facility] [address] [place] [address] Dr. Shayne Roldan Bilirubin Ql (U) Negative Normal NEGATIVE [facility] Comment on above: Performed By: #### U AMIC #### [facility] [address] [place] [address] Dr. Shayne Roldan CAST NONE SEEN Normal NONE SEEN [facility] Comment on above: Performed By: #### U AMIC #### [facility] [address] [place] [address] Dr. Shayne Roldan Clarity (U) CLEAR Normal CLEAR [facility] Comment on above: Performed By: #### U AMIC #### [facility] [address] [place] [address] Dr. Shayne Roldan Color (U) LT. YELLOW Normal YELLOW [facility] Comment on above: Performed By: #### U AMIC #### [facility] [address] [address] [address] Shayne Roldan Crystals LM Nom (Urine sed) NONE SEEN Normal NONE SEEN [facility] Comment on above: Performed By: #### U AMIC #### [facility] [address] [address] [address] Shayne Roldan Epithelial cells LM Ql (Urine sed) FEW Abnormal NONE SEEN /RARE [facility] Comment on above: Performed By: #### U AMIC #### [facility] [address] [address] [address] Shayne Roldan Glucose Ql (U) Negative Normal NEGATIVE [facility] Comment on above: Performed By: #### U AMIC #### [facility] [address] [place] [address] Dr. Shayne Roldan Hemoglobin Ql (U) Negative Normal NEGATIVE [facility] Comment on above: Performed By: #### U AMIC #### [facility] [address] [address] [address] Shayne Roldan Ketones Ql (U) Negative Normal NEGATIVE [facility] Comment on above: Performed By: #### U AMIC #### [facility] [address] [address] [address] Shayne Roldan LEUKOCYTES TRACE Abnormal NEGATIVE [facility] Comment on above: Performed By: #### U AMIC #### [facility] [address] [address] [address] Shayne Roldan MUCOUS NONE SEEN Normal NONE SEEN [facility] Comment on above: Performed By: #### U AMIC #### [facility] [address] [address] [address] Shayne Roldan Nitrite Ql (U) Negative Normal NEGATIVE [facility] Comment on above: Performed By: #### U AMIC #### [facility] [address] [address] [address] Shayne Roldan pH (U) 6.0 [pH] Normal 5-9 [facility] Comment on above: Performed By: #### U AMIC #### [facility] [address] [place] [address] Dr. Shayne Roldan RBC NONE SEEN Abnormal 0-2 [facility] Comment on above: Performed By: #### U AMIC #### [facility] [address] [address] [address] Shayne Roldan SPEC GRAVITY <=1.005 Abnormal 1.005-<=1.025 [facility] Comment on above: Performed By: #### U AMIC #### [facility] [address] [place] [address] Dr. Shayne Roldan UA PROTEIN Negative Normal NEGATIVE/ TRACE [facility] Comment on above: Performed By: #### U AMIC #### [facility] [address] [place] [address] Dr. Shayne Roldan Urobilinogen Qn (U) 0.2 {Rogelio'U}/dL Normal 0.2 - 1. 0 [facility] Comment on above: Performed By: #### U AMIC #### [facility] [address] [place] [address] Dr. Shayne Roldan WBC 5-10 Abnormal NONE SEEN [facility] Comment on above: Performed By: #### U AMIC #### [facility] [address] [place] [address] Dr. Shayne Roldan URIC ACID SERUMon 08-05-2022 Urate [Mass/Vol] 6.5 mg/dL Critically high 2.6-6.0 [facility] Comment on above: Performed By: #### M G, RENAL, URIC #### [facility] [address] [place] [address] Dr. Shayne Roldan URINE T PROTEIN CREAT RATIOo n 08-05-2022 Protein (U) [Mass/Vol] 4.8 mg/dL Normal <=12.0 [facility] Comment on above: Performed By: #### U RTPCR #### [facility] [address] [place] [address] Dr. Shayne Roldan UR PROT CREAT RAT 0.09 Normal [facility] Comment on above: Performed By: #### U RTPCR #### [facility] [address] [address] [address] Shayne Roldan URINE CREAT 52.65 mg/dL Normal 20.00-300.00 [facility] Comment on above: Performed By: #### U RTPCR #### [facility] [address] [address] [address] Shayne Roldan VITAMIN D 25 OHon 08-05-2022 VIT D 25-OH 38.9 ng/mL Normal [facility] Comment on above: Performed By: #### M G, RENAL, URIC #### [facility] [address] [address] [address] Shayne Roldan VIT D RANGES SEE BELOW Normal [facility] Comment on above: Result Comment: <20 ng/mL Vit D deficient 20 - <30 ng/mL Vit D insufficient 30 - 100 ng/mL Vit D sufficient >100 ng/mL Potential Toxicity Performed By: #### M G, RENAL, URIC #### [facility] [address] [place] [address] Dr. Shayne Roldan IMMUNOGLOBULINS IGA/IGM/IGG/ IGE QUANTITAon 07-12-2022 Immunoglobulin A, Qn, Serum 295 mg/dL Normal 87-352 [facility] Comment on above: Result Comment: Perf ormed at: CB Performed By: #### M G, RENAL, URIC #### [facility] [address] [place] [address] Dr. Shayne Roldan Immunoglobulin E, Total 32 IU/mL Normal 6-495 [facility] Comment on above: Result Comment: Perf ormed at: BN Performed By: #### M G, RENAL, URIC #### [facility] [address] [place] [address] Dr. Shayne Roldan Immunoglobulin G, Qn, Serum 729 mg/dL Normal 586-1602 [facility] Comment on above: Result Comment: Perf ormed at: CB Performed By: #### M G, RENAL, URIC #### [facility] [address] [place] [address] Dr. Shayne Roldan Immunoglobulin M, Qn, Serum 75 mg/dL Normal 26-217 [facility] Comment on above: Result Comment: Perf ormed at: CB Performed By: #### M G, RENAL, URIC #### [facility] [address] [place] [address] Dr. Shayne Roldan CBC AUTO DIFFon 07-05-2022 BASO # 0.1 103/ul Normal 0.0-0.1 [facility] Comment on above: Performed By: #### M G, RENAL, URIC #### [facility] [address] [place] [address] Dr. Shayne Roldan Basophils/100 WBC (Bld) 0.7 % Normal 0.2-2.0 [facility] Comment on above: Performed By: #### M G, RENAL, URIC #### [facility] [address] [place] [address] Dr. Shayne Roldan EO # 0.4 103/ul Normal 0.0-0.7 [facility] Comment on above: Performed By: #### M G, RENAL, URIC #### [facility] [address] [place] [address] Dr. Shayne Roldan Eosinophils/100 WBC (Bld) 4.4 % Normal 0.9-7.0 [facility] Comment on above: Performed By: #### M G, RENAL, URIC #### [facility] [address] [place] [address] Dr. Shayne Roldan Erythrocyte distribution width (RBC) [Ratio] 12.6 % Normal 11.0-15.0 [facility] Comment on above: Performed By: #### M G, RENAL, URIC #### [facility] [address] [place] [address] Dr. Shayne Roldan Hematocrit (Bld) [Volume fraction] 40.2 % Normal 36.0-48.0 [facility] Comment on above: Performed By: #### M G, RENAL, URIC #### [facility] [address] [place] [address] Dr. Shayne Roldan Hemoglobin (Bld) [Mass/Vol] 13.6 g/dL Normal 12.0-16.0 [facility] Comment on above: Performed By: #### M G, RENAL, URIC #### [facility] [address] [address] [address] Shayne Roldan IG # 0.07 10e3/ul Critically high 0.00-0.03 [facility] Comment on above: Performed By: #### M G, RENAL, URIC #### [facility] [address] [address] [address] Shayne Roldan IG % 0.8 % Critically high 0.0-0.5 [facility] Comment on above: Performed By: #### M G, RENAL, URIC #### [facility] [address] [address] [address] Shayne Roldan LYMPH # 2.3 103/ul Normal 1.2-3.8 [facility] Comment on above: Performed By: #### M G, RENAL, URIC #### [facility] [address] [address] [address] Shayne Roldan Lymphocytes/100 WBC (Bld) 24.7 % Normal 20.5-60.0 [facility] Comment on above: Performed By: #### M G, RENAL, URIC #### [facility] [address] [address] [address] Shayne Roldan MANUAL DIFF REQ NO Normal [facility] Comment on above: Performed By: #### M G, RENAL, URIC #### [facility] [address] [address] [address] Shayne Roldan MCH (RBC) [Entitic mass] 30.7 pg Normal 26.7-34.0 [facility] Comment on above: Performed By: #### M G, RENAL, URIC #### [facility] [address] [address] [address] Shayne Roldan MCHC (RBC) [Mass/Vol] 33.8 g/dL Normal 29.9-35.2 [facility] Comment on above: Performed By: #### M G, RENAL, URIC #### [facility] [address] [address] [address] Shayne Roldan MCV (RBC) [Entitic vol] 90.7 fL Normal 81.0-99.0 [facility] Comment on above: Performed By: #### M G, RENAL, URIC #### [facility] [address] [place] [address] Dr. Shayne Roldan MONO # 0.7 103/ul Normal 0.3-0.8 [facility] Comment on above: Performed By: #### M G, RENAL, URIC #### [facility] [address] [place] [address] Dr. Shayne Roldan Monocytes/100 WBC (Bld) 7.7 % Normal 1.7-12.0 [facility] Comment on above: Performed By: #### M G, RENAL, URIC #### [facility] [address] [place] [address] Dr. Shayne Roldan NEUT # 5.7 103/ul Normal 1.4-6.5 [facility] Comment on above: Performed By: #### M G, RENAL, URIC #### [facility] [address] [place] [address] Dr. Shayne Roldan Neutrophils/100 WBC (Bld) 61.7 % Normal 43.0-75.0 [facility] Comment on above: Performed By: #### M G, RENAL, URIC #### [facility] [address] [place] [address] Dr. Shayne Roldan Platelet mean volume (Bld) [Entitic vol] 8.8 fL Critically low 9.5-13.5 [facility] Comment on above: Performed By: #### M G, RENAL, URIC #### [facility] [address] [place] [address] Dr. Shayne Roldan PLT 279 103/ul Normal 150-450 [facility] Comment on above: Performed By: #### M G, RENAL, URIC #### [facility] [address] [place] [address] Dr. Shayne Roldan RBC 4.43 106/ul Normal 4.20-5.40 [facility] Comment on above: Performed By: #### M G, RENAL, URIC #### [facility] [address] [place] [address] Dr. Shayne Roldan WBC 9.1 103/ul Normal 4.0-11.0 [facility] Comment on above: Performed By: #### M G, RENAL, URIC #### [facility] [address] [place], [place] [address] Dr. Shayne Roldan Covid-19 PCR (CVDTB)on SARS-CoV-2 (COVID-19) RNA KAYLEE+probe Ql (Unsp spec) Not detected Normal NOT DETECTED [facility] Comment on above: Result Comment: This test is not yet approved or cleared by the [place] FDA. When there are no FDA-approved or cleared tests available, and other criteria are met, FDA can make tests available under an emergency access mechanism called an Emergency Use Authorization (EUA). The EUA for this test is supported by the Clinic Administrator of Health and Human Service's (HHS's) declaration [...] By: #### M G, RENAL, URIC #### [facility] [address] [place], [place] [address] Dr. Shayne Roldan XR CHEST 2 Von [...] NARDA LONDONO Date: 2022-06-08 19:58 Normal [facility] Covid-19 PCR (CVDTB)on SARS-CoV-2 (COVID-19) RNA KAYLEE+probe Ql (Unsp spec) Not detected Normal NOT DETECTED [facility] Comment on above: Result Comment: This test is not yet approved or cleared by the [place] FDA. When there are no FDA-approved or cleared tests available, and other criteria are met, FDA can make tests available under an emergency access mechanism called an Emergency Use Authorization (EUA). The EUA for this test is supported by the Clinic Administrator of Health and Human Service's (HHS's) declaration [...] consistent with SARS-CoV-2. Performed By: #### [facility] #### [facility] [address] [place] [address] Dr. Shayne CORNELIUSA AXIALon 03-01-2022 DEXA AXIAL [facility] Department of Radiology [address] [place] [id number] Patient Name: DIANA CHAMPION : 1955 Sex: F Age: Race: White Pt. Location: Patient Status: D Ordered Date: 02/24/2022 1:25:00 PM Completed Date: 03/01/2022 09:46 AM Requesting Provider: CINDA ANTONIO Attending Provider: Report Copy To: Signs & Symptoms: Z78.0 Asymptomatic menopausal state I10 History: [place] Comments: Exam: DEXA AXIAL DEXA AXIAL 03/01/2022 [...] characteristics. Electronically signed: Luzma Fernandez. Transcribed by: [email or web address], User Resident: Electronically Signed by: LUZMA FERNANDEZ @ 03/02/2022 01:07 PM Normal [facility] SCOLIOSIS 2 [facility] 02-24-2022 SCOLIOSIS 2 S [facility] Department of Radiology [address] [place] [id number] Patient Name: DIANA CHAMPION : 1955 [...] spine. Electronically signed: Hugo Lynn. Transcribed by: [email or web address], User Resident: Electronically Signed by: HUGO LYNN @ 02/26/2022 11:07 AM Normal [facility] Comment on above: Order Comment: Views (X-RAY, SCOLIOSIS): PA, Lateral evaluate CT LUMBAR SPINE W CONTRASTon 01-24-2022 CT LUMBAR SPINE W CONTRAST [facility] Department of Radiology [address] [place] [id number] Patient Name: DIANA CHAMPION : 1955 [...] L1-2. Electronically signed: Gaurang Lawrence. Transcribed by: [email or web address], User Resident: Electronically Signed by: GAURANG LAWRENCE @ 01/26/2022 08:58 AM Normal [facility] Comment on above: Order Comment: , CT MYELOGRAM>PAPER WORK IN CHART LUMBAR MYELOGRAMon LUMBAR MYELOGRAM [facility] Department of Radiology [address] [place], [place] [id number] Patient Name: DIANA CHAMPION : 1955 Sex: F Age: Race: White Pt. Location: 84 Patient Status: O Ordered Date: 01/09/2022 9:00:00 AM Completed Date: 01/24/2022 02:37 PM Requesting Provider: JOO BRAVO Attending Provider: JOO BRAVO Report Copy To: UNKNOWN, PHYSICIAN Signs & Symptoms: M54.16 Radiculopathy, lumbar region I10 History: [place] Is patient on thinners? 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 Consent was obtained. Timeout: [place] protocol timeout verification performed. PROCEDURE: Estimated blood [...] report. Electronically signed: Greg Marlow. Transcribed by: [email or web address], User Resident: DEBBIE JI Electronically Signed by: [...] PELVIS [facility] Department of Radiology [address] [place] [id number] Patient Name: DIANA CHAMPION : 1955 [...] hardware. Electronically signed: Joe Matthew. Transcribed by: [email or web address], User Resident: Electronically Signed by: JOE MATTHEW [...] Phone: [facility] 03-14-2024 10:30-0400 Body temperature 97.4 [degF] Steph Collier Work Phone: [facility] 03-14-2024 10:30-0400 Body weight 106.36 kg Steph Collier Work Phone: [facility] 03-14-2024 10:30-0400 Diastolic blood pressure 80 mm[Hg] Steph Marinellijohn Work Phone: [facility] 03-14-2024 10:30-0400 [...] 10:30-0400 Systolic blood pressure 120 mm[Hg] Steph Marinellijohn Work Phone: [facility] 08-17-2023 09:20-0400 Body height 165.1 cm Herberth Joana Other [facility] [employer] [place] Other 08-17-2023 09:20-0400 Body mass index (BMI) [Ratio] 38.1 kg/m2 Herberth Joana Other [employer] Other 08-17-2023 09:20-0400 Body temperature 98.8 [degF] Herberth Joana Other [employer] Other 08-17-2023 09:20-0400 Body weight 103.87 kg Herberth Joana Other [employer] Other 08-17-2023 09:20-0400 Diastolic blood pressure 85 mm[Hg] Herberth Joana Other [employer] Other 08-17-2023 09:20-0400 Respiratory rate 18 /min Herberth Joana Other [employer] Other 08-17-2023 09:20-0400 SaO2% (BldA) [Mass fraction] 94 % Herberth Joana Other [employer] Other 08-17-2023 09:20-0400 Systolic blood pressure 151 mm[Hg] Herberth Joana Other [employer] Other 03-02-2023 10:00-0400 Body height 165.1 cm Herberth Joana Other [employer] Other 03-02-2023 10:00-0400 Body mass index (BMI) [Ratio] 37.29 kg/m2 Herberth Jaona Other [employer] Other 03-02-2023 10:00-0400 Body temperature 98.9 [degF] Herberth Joana Other [employer] Other 03-02-2023 10:00-0400 Body weight 101.65 kg Herberth Joana Other [employer] Other 03-02-2023 10:00-0400 Diastolic blood pressure 76 mm[Hg] Herberth Joana Other [employer] Other 03-02-2023 10:00-0400 Respiratory rate 20 /min Herberth Joana Other [employer] Other 03-02-2023 10:00-0400 SaO2% (BldA) [Mass fraction] 96 % Herberth Joana Other [facility] [employer] [place] Other 03-02-2023 10:00-0400 Systolic blood pressure 136 mm[Hg] Herberth Joana Other [employer] Other 12-08-2022 09:30-0500 Diastolic blood pressure 59 [...] Body height 165.1 cm Herberth Joana Other [employer] Other 08-09-2022 11:00-0400 Body mass index (BMI) [Ratio] 37.87 kg/m2 Herberth Joana Other [employer] Other 08-09-2022 11:00-0400 Body temperature 97.2 [degF] Herberth Joana Other [employer] Other 08-09-2022 11:00-0400 Body weight 103.24 kg Herberth Joana Other [employer] Other 08-09-2022 11:00-0400 Diastolic blood pressure 88 mm[Hg] Herberth Joana Other [employer] Other 08-09-2022 11:00-0400 Respiratory rate 20 /min Herberth Joana Other [employer] Other 08-09-2022 11:00-0400 SaO2% (BldA) [Mass fraction] 95 % Hreberth Joana Other [employer] Other 08-09-2022 11:00-0400 Systolic blood pressure 133 mm[Hg] Herberth Joana Other [employer] Other 11-17-2021 10:40-0500 Body height 165.1 cm Herberth Joana Other [employer] Other 11-17-2021 10:40-0500 Body mass index (BMI) [Ratio] 37.97 kg/m2 Herberth Joana Other [employer] Other 11-17-2021 10:40-0500 Body temperature 97.8 [degF] Herberth Joana Other [employer] Other 11-17-2021 10:40-0500 Body weight 103.51 kg Herberth Joana Other [employer] Other 11-17-2021 10:40-0500 Diastolic blood pressure 70 mm[Hg] Herberth Joana Other [employer] Other 11-17-2021 10:40-0500 Respiratory rate 18 /min Herberth Joana Other [employer] Other 11-17-2021 10:40-0500 SaO2% (BldA) [Mass fraction] 94 % Herberth Joana Other [employer] Other 11-17-2021 10:40-0500 Systolic blood pressure 130 mm[Hg] Herberth Joana Other [employer] Other 08-30-2021 13:15-0400 Body height 165.1 cm Rena Ginty Other [employer] Other 08-30-2021 13:15-0400 Body mass index (BMI) [Ratio] 36.61 kg/m2 Rena Ginty Other [employer] Other 08-30-2021 13:15-0400 Body temperature 98.7 [degF] Rena Ginty Other [employer] Other 08-30-2021 13:15-0400 Body weight 99.79 kg Rnea Grzegorzy Other [employer] Other 08-30-2021 13:15-0400 SaO2% (BldA) [Mass fraction] 90 % Rena Marysolnty Other [employer] Other Encounters Encounter Date Encounter Type Care Provider Facility Start: 06-25-2024 ambulatory [facility] Start: 06-21-2024 End: 06-21-2024 ambulatory [facility] Start: 06-12-2024 End: 06-12-2024 ambulatory AIDA BLANC Not Available Start: 05-13-2024 End: 05-13-2024 ambulatory [facility] Start: 05-06-2024 End: 05-06-2024 ambulatory Jayshree Vargas MD Facility: [facility] Start: 04-17-2024 End: 04-17-2024 ambulatory SAUNDERS FAWWAD Not Available Start: 04-15-2024 End: 04-15-2024 ambulatory [facility] Start: 04-11-2024 End: 04-11-2024 ambulatory SAUNDERS FAWWAD Not Available Start: 04-03-2024 End: 04-03-2024 ambulatory SAUNDERS FAWWAD Not Available Start: 03-27-2024 End: 03-27-2024 ambulatory SAUNDERS FAWWAD Not Available Start: 03-14-2024 End: 03-14-2024 ambulatory Steph Collier Work Phone: [facility] Work Phone: Start: 03-14-2024 End: 03-14-2024 Patient encounter procedure Steph Collier Work Phone: [facility] [place] Work Phone: Start: 03-06-2024 Non-patient / Non-visit Steph Collier Work Phone: [facility] [place] Work Phone: Start: 02-26-2024 End: 02-26-2024 ambulatory SAUNDERS FAWWAD Not Available Start: 02-19-2024 End: 02-19-2024 ambulatory Jayshree Vargas MD Facility: [facility] Start: 02-15-2024 End: 02-15-2024 ambulatory ROSHNI AICHHOLZ Not Available Start: 01-25-2024 End: 01-25-2024 ambulatory SAUNDERS FAWWAD Not Available Start: 12-28-2023 End: 12-28-2023 ambulatory SAUNDERS FAWWAD Not Available Start: 12-18-2023 End: 12-18-2023 ambulatory Jayshree Vargas MD Facility: [facility] Start: 12-05-2023 End: 12-05-2023 ambulatory SAUNDERS FAWWAD Not Available Start: 11-13-2023 End: 11-13-2023 ambulatory Jayshree Vargas MD Facility: [facility] Start: 11-02-2023 End: 11-02-2023 ambulatory SAUNDERS FAWWAD Not Available Start: 10-09-2023 End: 10-09-2023 ambulatory Jayshree Vargas MD Facility: [facility] Start: 10-04-2023 End: 10-04-2023 ambulatory SAUNDERS FAWWAD Not Available Start: 09-07-2023 End: 09-07-2023 ambulatory Herberth Joana Other [employer] Other Start: 09-07-2023 Telephone encounter Herberth Joana [facility] Start: 08-28-2023 End: 08-28-2023 ambulatory Herberth Joana Other [facility] [employer] [place] Other Start: 08-28-2023 Telephone encounter Herberth Joana [facility] Start: 08-21-2023 End: 08-21-2023 ambulatory Jayshree Vargas MD Facility: [facility] Start: 08-17-2023 End: 08-17-2023 ambulatory Herberth Joana Other [employer] Other Start: 08-17-2023 Office outpatient visit 25 minutes Herberth Joana [facility] Start: 04-04-2023 End: 04-04-2023 ambulatory SHAIKH Dimitry OHARA Facility:[facility] Start: 03-24-2023 End: 03-25-[address] STEPH GRANADOS Facility:[facility] Start: 03-02-2023 End: 03-02-2023 ambulatory Herberth Joana Other [employer] Other Start: 03-02-2023 Office outpatient visit 25 [...] center MD Shaikh Ohara Work Phone: [facility] Work Phone: Start: 12-08-2022 End: 12-08-2022 ambulatory MD Shaikh Ohara Work Phone: [facility] Work Phone: Start: 11-11-2022 End: 11-11-[address] JACK HALL . Facility:[facility] Start: 11-09-2022 End: 11-09-2022 ambulatory Azkatherine Gonzalezs Other [employer] Other Start: 11-09-2022 Telephone encounter Gilma Gonzalezs [facility] Start: 08-19-2022 End: 08-20-2022 ambulatory HERBERTH JOANA Facility:[facility] Start: 08-09-2022 End: 08-09-2022 ambulatory Herberth Joana Other [employer] Other Start: 08-09-2022 Office outpatient visit 10 minutes Herberth Joana [facility] Start: 08-09-2022 Telephone encounter Herberth Joana [facility] Start: 08-05-2022 Telephone encounter Herberth Joana [facility] Start: 08-05-2022 End: 08-06-2022 ambulatory HERBERTH JOANA [employer] Other Start: 07-08-2022 End: 07-08-2022 ambulatory Gato Loco Other [employer] Other Start: 07-08-2022 Telephone encounter Gato Cesar [facility] Start: 07-05-2022 End: 07-06-2022 ambulatory SAUNDERS H FAWWAD Facility:[facility] Start: 06-08-2022 End: 06-09-2022 ambulatory SAUNDERS H FAWWAD Facility:[facility] Start: 06-07-2022 End: 06-07-2022 ambulatory SAUNDERS H FAWWAD Facility:[facility] Start: 01-24-2022 End: 01-25-2022 ambulatory PHYSICIAN UNKNOWN Facility:[facility] Start: 11-17-2021 End: 11-17-2021 ambulatory Herberth Joana Other [employer] Other Start: 11-17-2021 Office outpatient visit 15 minutes Herberth Joana [facility] Start: 08-30-2021 Office outpatient visit 15 minutes Rena Ginty [facility] Start: 09-11-2020 End: 09-11-2020 Chart abstracting Miguelito Buck Work Phone: Hematology/Oncology Start: 09-11-2020 End: 09-11-2020 Patient encounter procedure External Provider [facility] Start: 09-11-2020 Results Only External Provider Exter [facility] Start: 09-30-2019 End: 09-30-2019 Patient encounter procedure Steph Galindojohn [facility] [place] Start: 07-07-2017 End: 07-07-2017 Admission to day surgery [facility] Start: 05-24-2004 Evaluation and management of inpatient [facility] [place] Start: 04-26-2004 Evaluation and management of inpatient [facility] [place] Procedures Date Procedure Procedure Detail Performing Clinician Start: 12-08-2022 Colonoscopy MD Shaikh Ohara Work Phone: Start: 09-11-2020 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 Sales Effectiveness Manager al Provider Start: 09-11-2020 EXTERNAL LAB External P rovider Start: 09-11-2020 EXTERNAL PROCEDURE Exte rnal Provider Start: 09-30-2019 Ultrasonography of b ilateral kidneys Steph Collier Plan of Treatment Date Care Activity Detail Author Start: 12-08-2022 [facility] Start: 07-07-2020 Influenza vaccination INFLUENZA (#1) [facility] Start: 2006 SHINGRIX VACCINE (1 of 2) SHINGRIX VACCINE (1 of 2) [facility] Start: 2006 Tuberculosis screening COLORECTAL CANCER SCREENING,SEE MODIFIER [facility] Start: 2001 DIABETES SCREEN DIABETES SCREEN [facility] Start: 2001 LIPID SCREEN LIPID SCREEN [facility] Start: 1996 Mammography MAMMOGRAM [facility] Start: 1986 HPV TESTING HPV TESTING [facility] Start: 1977 PAP TESTING PAP TESTING [facility] Start: 1975 Urine microalbumin profile DTAP,TDAP,TD (1 - Tdap) [facility] Start: 1974 HEPATITIS C SCREENING HEPATITIS C SCREENING [facility] Start: 1974 HIV SCREENING HIV SCREENING [facility] Patient Education Colon Polypect shahram Hemorrhoids (DC) Diverticulosis (DC) [facility] Work Phone: [place] Ilean[place] kad[place] Immunizations Immunization Date Immunization Notes Care Provider Henrietta tanmayfernanda 07-18-2018 Depo-Medrol 40 mg Rena Gint y Other [employer] Other 01-31-2018 Depo-Medrol 40 mg Rena Gint y Other [employer] Other 08-09-2017 influenza virus vaccine, unspecified formulation Steph Collier Work Phone: [facility] 08-09-2017 influenza, seasonal, injectable, preservative free Rena Ginty Other [employer] Other Payers Date Payer Category Payer Unknown 2022 Self-pay [id number] 2021 Medicare [id number] 2020 Medicaid [id number] 2019 Medicaid MEDICAID [facility] MEDICAID [id number] 2019-Present Medicaid [id number] 2016 Medicare MEDICARE MEDICAR E A AND B [id number] 2016-Present [place] [id number] 1959 Unknown [id number] 1956 Unknown [id number] 2.16.840.1.087729.3.579.2.647 1956 Unknown [id number] 2.16.840.1.669828.3.579.2.593 1956 Unknown [id number] 2.16.840.1.872275.3.579.2.593 1956 Unknown [id number] 2.16.840.1.766574.3.579.2.593 1956 Unknown [id number] 2.16.840.1.971948.3.579.2.593 1956 Unknown [id number] 2.16.840.1.345495.3.579.2.593 1956 Unknown [id number] 2.16.840.1.935855.3.579.2.593 1956 Unknown [id number] 2.16.840.1.706666.3.579.2.593 1956 Unknown [id number] 2.16.840.1.013012.3.579.2.593 1956 Unknown [id number] 2.16.840.1.094136.3.579.2.593 1956 Unknown [id number] 2.16.840.1.919094.3.579.2.593 1956 Unknown [id number] 2.16.840.1.281894.3.579.2.593 1956 Unknown [id number] 2.16.840.1.142377.3.579.2.196 1956 Unknown [id number] 2.16.840.1.768947.3.579.2.196 1956 Unknown [id number] 2.16.840.1.713931.3.579.2.196 1956 Unknown [id number] 2.16.840.1.897469.3.579.2.196 1956 Unknown [id number] 2.16.840.1.478816.3.579.2.196 1956 Unknown [id number] 2.16.840.1.300736.3.579.2.196 1956 Unknown [id number] 2.16.840.1.823957.3.579.2.196 1956 Unknown [id number] 2.16.840.1.645146.3.579.2.125 1956 Unknown [id number] 2.16.840.1.651048.3.579.2.125 1956 Unknown [id number] 2.16.840.1.960058.3.579.2.1258 1956 Unknown [id number] 2.16.840.1.757217.3.579.2.1258 1956 Unknown [id number] 2.16.840.1.887268.3.579.2.1258 1956 Unknown [id number] 2.16.840.1.371963.3.579.2.125 1956 Unknown [id number] 2.16.840.1.527707.3.579.2.1258 1956 Unknown [id number] 2.16.840.1.779279.3.579.2.1258 1956 Unknown [id number] 2.16.840.1.225409.3.579.2.1258 1956 Unknown [id number] 2.16.840.1.654056.3.579.2.1258 1956 Unknown [id number] 2.16.840.1.316155.3.579.2.1258 1956 Unknown [id number] 2.16.840.1.499091.3.579.2.1259 Medicare [id number] Unknown HCAP/HFA/FAP Active [id number] Unknown [id number] 2.16.840.1.351110.3.579.2.531 Social History Date Type Detail Facility Tobacco smoking stat us COIS Unknown if ever smoked [facility] Start: 1955 Sex Assigned At Female [facility] Start: 09-11-2020 End: 03-14-2024 Tobacco smoking status NHIS Never smoker [facility] Start: 09-11-2020 Tobacco use and exposure Never used [facility] Start: 09-11-2020 Alcohol intake Lifetime non-d my (finding) [facility] Start: 09-11-2020 History SDOH Alcohol Frequency 1 [facility] Sex Assigned At Not on file [facility] Sex Assigned At Sex Assigned At Bir th [employer] Other Goals Date Patient Goal Desired Activity /State Clinical Notes 08-30-2021 to 06-25-2024 Note Date & Type Note Facility 06-25-2024 Note -- Attestation signed by Emelia Yoo MD at 06/26/2024 8:36 AM Total time spent on day of encounter: 30 minutes Attending attestation: GC: I personally spoke with this patient via telephone on the day of the encounter, performed the wasserman portion(s) of the service and participated in the management and confirm the fellow's documentation. Physical examination was not performed and may limit some portions of the clinical encounter. Please note there may be an additional personal documentation from me. -- Pulmonary Telemedicine Visit Note Patient: Diana Champion Age: 68 y.o. : 1955 Account No.: [id number] Referring physician: Dr. Bo Mcclain Chief complaint: Recurreny pneumonia HPI Diana Champion is a 68 y.o. female with PMHx of reportedly COPD, chronic hypoxic respiratory failure on 2L home O2 who is presenting to clinic as a new patient after being referred by Dr. Bo Baker of [facility]. Patient has been admitted 4 times over the past year for pneumonia to the hospital. This is thought to be secondary to dynamic airway collapse. Currently the patient is using Trelegy inhaler, albuterol inhaler and DuoNebs twice a day. She is concerned why she keeps getting recurrent pneumonias requiring hospitalization. The patient reports symptoms of shortness of breath and severe chest congestion. She has been given chest vest therapy but the symptoms still persist. She has a mild productive cough. The patient is a never smoker however was exposed to secondhand smoke for over 50 years. 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 Her family history is positive for COPD and her son. CT chest 06/07/2024 at outside hospital: Mild atelectasis or possible infiltrate seen in posterior lung bases bilaterally CT chest 04/11/2024 at outside hospital: Right greater than left basilar infiltrates and peribronchial thickening concerning for bronchitis PFTs 01/24/2022 at outside hospital: FVC 80% FEV1 79% FEV1/FVC 76% RV 80% TLC 75% DLCO 90% Labwork: MM genotype for Alpha 1 antitrypsin Past Medical History: Diagnosis Date Asthma Cancer ([facility]) COPD (chronic obstructive pulmonary disease) ([facility]) Coronary artery disease GERD (gastroesophageal reflux disease) Hyperlipidemia Hypertension Past Surgical History: Procedure Laterality Date BACK SURGERY CARDIAC CATHETERIZATION Left FL GUIDED ASPIRATION OR INJECTION LARGE JOINT BILATERAL Bilateral 07/25/2019 FL GUIDED ASPIRATION OR INJECTION LARGE JOINT BILATERAL KIMBLE CONVERSION FOOT SURGERY Right KNEE ARTHROPLASTY Right TOTAL HIP ARTHROPLASTY TUBAL LIGATION Allergies: Fentanyl Prior to Admission medications Medication Sig Start Date End Date Taking? Authorizing Provider albuterol 2.5 mg /3 mL (0.083 %) nebulizer solution USE 1 VIAL IN NEBULIZER EVERY 4 TO 6 HOURS NEEDED Yes Historical Provider, albuterol 90 mcg/actuation inhaler INHALE 2 PUFFS BY MOUTH EVERY 4 HOURS NEEDED FOR SHORTNESS OF BREATH Yes Historical Provider, alendronate (Fosamax) 70 mg tablet 1 tablet 30 minutes before the first food, beverage or medicine of the day with plain water Orally Yes Historical Provider, amLODIPine (Norvasc) 5 mg tablet Take 1 tablet by mouth in the morning. Yes Historical Provider, baclofen (Lioresal) 5 mg tablet Take 5 mg by mouth in the morning, afternoon, and at bedtime. 03/14/23 Yes Historical Provider, cholecalciferol (Vitamin D-3) 25 MCG (1000 UT) tablet Take 1 tablet by mouth in the morning. Yes Historical Provider, cyclobenzaprine (Flexeril) 10 mg tablet Take 10 mg by mouth if needed in the morning, at noon, and at bedtime. Yes Historical Provider, ferrous sulfate 325 (65 Fe) MG tablet Take 325 mg by mouth every other day. Yes Historical Provider, sktfhuoklve-xbczqljrt-sbxtxzzj 100-62.5-25 mcg blister with device Yes Historical Provider, gabapentin (Neurontin) 300 mg capsule Take 300 mg by mouth in the morning and at bedtime. 03/13/23 Yes Historical Provider, guaiFENesin (Mucinex) 600 mg 12 hr tablet Take 1 tablet by mouth in the morning and at bedtime. Yes Historical Provider, magnesium oxide (Mag-Ox) 400 mg (241.3 mg magnesium) tablet TAKE 1 TABLET BY MOUTH ONCE DAILY WITH FOOD 02/07/23 Yes Historical Provider, montelukast (Singulair) 10 mg tablet Take 1 tablet by mouth in the morning. Yes Historical Provider, multivitamin (Theragran-M) 9 mg iron-400 mcg tablet Take 1 tablet by mouth in the morning. Yes Historical Provider, omeprazole (PriLOSEC) [address] capsule Take 1 capsule by mouth in the morning. Yes Historical Provider, PARoxetine (Paxil) 20 mg tablet Take 1 tablet by mouth in the morning. Yes Historical Provider, potassium chloride CR (K-Tab) 20 mEq ER ta (more content not included)... [facility] 05-13-2024 Note [facility] Cardiology Clinic Note Chief Complaint: Patient [...] breath since then. She has seen her childcare center administrator. Her chest pain is noncardiac. She has [...] a past medical history of Asthma, Cancer ([facility]), COPD (chronic obstructive pulmonary disease) ([facility]), Coronary artery disease, GERD (gastroesophageal reflux [...] mouth every other day., Disp: , Rfl: fsfvktbmhcs-mjymmxgdc-iuscsiim 100-62.5-25 mcg blister with device, , Disp: [...] Assessment Notes Sep, Hypomagnesemia (ICD-10 - E83.42) [employer] Other 10-23-2023 Evaluation note* Encounter Date Diagnosis Assessment Notes Treatment Notes Treatment Clinical Notes Aug, Nico bolden cr kid I-IV (ICD-10 - I12.9) [employer] Other 10-12-2023 Evaluation note* Encounter Date Diagnosis [...] PPI induced GI losses. Continue oral Magnesium [employer] Other 05-19-2023 NotePROCEDURE: XR HIP RT 2 3V W PELVIS HISTORY: Pain in right hip joint , chronic COMPARISON: XR L-spine 02/26/2019, XR left hip with pelvis 03/11/2017 FINDINGS: BONES:Complete loss of the right hip joint space with gypb-iv-guoj articulation, subchondral sclerosis and cysts, and large periarticular degenerative osteophytes. No fracture or dislocation. Left hip replacement. Mechanical fusion of L5-S1 and moderate dextroscoliosis of lumbar spine. SOFT TISSUES:No visible soft tissue swelling. EFFUSION:None visible. OTHER: Negative. IMPRESSION: 1. Marked degenerative joint disease of the right hip; progressed since prior study. 2. Stable surgical changes. Electronically authenticated by: STEPH GRANADOS Date: 2023-03-24 12:55[facility]04-27-2023 Evaluation note* Encounter Date Diagnosis Assessment [...] PPI induced GI losses. Continue oral Magnesium [employer] [facility] Encounter Date Diagnosis Assessment Notes Treatment Notes Treatment Clinical Notes Nov, Hypokalemia (ICD-10 - E87.6) Nov, Hypomagnesemia (ICD-10 - E83.42) [employer] Other 10-04-2022 Evaluation note* Encounter Date Diagnosis [...] office does not accept her new insurance. [employer] Other 09-02-2022 Evaluation note* Encounter Date Diagnosis Assessment Notes Treatment Notes Treatment Clinical Notes Jul, History of colon cancer (ICD-10 - Z85.038) [employer] Other 01-12-2022 Evaluation note* Encounter Date Diagnosis [...] potassium wasting. I have prescribed oral potassium. [employer] Other 10-25-2021 Evaluation note* Encounter Date Diagnosis [...] Patient care instructions given in writting by [facility] Care At Home document [employer] Other Evaluation noteNo [employer] Other Evaluation note* Diagnosis Onset Date Resolution Status History of colon cancer acut e [facility] Work Phone: Evaluation note* Diagnosis Onset Date Resolution Status Hypokalemia acute Hypomagnesemia acute Stage 3 chronic kidney disease acute COVID noneactive Pneumonia noneactive [facility] Work Phone: History general Narrative [...] 7 Hospitalization History 1 week during chemo 2004 Hospitalization History ISSUE WITH HIP C OMING OUT AND NEEDING TO PUT IT BACK IN 08/2019 Hospitalization History HIP REVISION 03/2020 [employer] Other history general Narrative - Reported* Type [...] Hospitalization History COVID X 2 WEEKS 04/2023 [employer] Other Hospital Discharge instructions Additional Instructions DISCHARGE [...] if you have any problems. -Office number [phone] Work Phone: Advance Directives No [...] any alcohol or drug abuse patient.[facility] the event this information is protected by the Federal Confidentiality of Alcohol and Drug Abuse Patient Records regulations: The Federal rules restrict any use of the information to criminally investigate or prosecute any alcohol or drug abuse patient.[facility] the event this information is protected by the Federal Confidentiality of Alcohol and Drug Abuse Patient Records regulations: The Federal rules restrict any use of the information to criminally investigate or prosecute any alcohol or drug abuse patient.[facility] the event this information is protected by the Federal Confidentiality of Alcohol and Drug Abuse Patient Records regulations: The Federal rules restrict any use of the information to criminally investigate or prosecute any alcohol or drug abuse patient.[facility] INFORMATION SOURCE (unrecogn ized section and content) DATE CREATED AUTHOR 03/03/2022 [facility] DATE CREATED AUTHOR AUTHOR'S ORGANIZ ATION 04/17/2023 [facility] DATE CREATED AUTHOR AUTHOR'S ORGANIZ ATION 06/07/2023 [facility] DATE CREATED AUTHOR AUTHOR'S ORGANIZ ATION 05/09/2024 [facility] DATE CREATED AUTHOR AUTHOR'S ORGANIZ ATION 06/14/2024 [facility] DATE CREATED AUTHOR AUTHOR'S ORGANIZ ATION 06/26/2024 [facility] REASON FOR VISIT [...] BE BASED ON THE PRIMARY CLINICAL RECORDS. [facility] [employer] [facility]. provides no warranty or guarantee of the accuracy or completeness of information in this document.
--- NOTE | 2024-06-28 19:53 | XR_ITS ---
The [address] [address] Patient Name: JHONATAN MONTOYA MRN: [id number] date: 1955 Sex: F Assigned Patient Location: ER Current Patient Location: ER Accession/Order Number: [id number] Exam Date: 06/28/2024 20:24 Report Date: 06/28/2024 21:38 At the request of: SEDRICK JEFFERSON Procedure: XR chest 1V XR chest 1V 06/28/2024 7:24 PM CDT: History: cough Comparison: 02/03/2024 Technique: 1 view chest Findings: The cardiomediastinal silhouette is normal. The lungs are clear without infiltrate, effusion, or pneumothorax. The bones are intact. XR/XR chest 1V Impression: No acute cardiopulmonary process. Electronically authenticated by: CONCHIS SUAREZ Date: 06/28/2024 21:38
--- NOTE | 2024-06-28 20:05 | ED_ITS ---
HPI HPI - General Adult General Chief complaint: Upper Respiratory Infection Stated complaint: BODY ACHES Time Seen by Provider: 06/28/24 19:53 Source: patient Mode of arrival: Wheelchair Limitations: no limitations History of Present Illness HPI narrative: Patient is a 68-year-old female who presents to the emergency department for a wet cough associated with low-grade fever and bodyaches today. She has a history of COPD, frequent pneumonia, she was hospitalized several weeks ago for pneumonia. She completed a course of prednisone and doxycycline. She reports temperature as high as 100.7 Fahrenheit today. She wears oxygen by nasal cannula chronically at 3 L. She denies chest pain. Patient further complains of being out of her Lasix for several weeks. She states she has not been able to get a refill for this medication. She is audibly gurgling, wheezing. She has not had any hemoptysis. Patient is unaware if she has peripheral edema at this time or not although she is noted to have pitting edema at initial interview. Related Data Home Medications ?Medication ?Instructions ?Recorded ?Confirmed fluticasone fur. 200 mcg-umeclid 1 inh inhalation Q24H COPD 04/10/23 06/28/24 62.5 mcg-vilant 25 mcg inhalat.powder (Trelegy Ellipta) magnesium oxide 400 mg (241.3 mg 400 mg PO DAILY 04/10/23 06/28/24 magnesium) tablet omeprazole 20 mg capsule,delayed 20 mg PO BID 04/10/23 06/28/24 release montelukast 10 mg tablet 10 mg PO DAILY 09/14/23 06/28/24 pramipexole 0.25 mg tablet 0.25 mg PO QPM 09/14/23 06/28/24 (Mirapex) paroxetine HCl 30 mg tablet 30 mg PO QDAY 11/25/23 06/28/24 pregabalin 75 mg capsule 75 mg PO BID 11/25/23 06/28/24 solifenacin 10 mg tablet 10 mg PO QDAY 11/25/23 06/28/24 trazodone 100 mg tablet 100 mg PO .qhs 11/25/23 06/28/24 baclofen 10 mg tablet 10 mg PO Q8H 02/03/24 06/28/24 albuterol sulfate 2.5 mg/3 mL 2.5 mg continuous nebulization Q4H 06/06/24 06/28/24 (0.083 %) solution for nebulization PRN shortness of breath or wheezing furosemide 20 mg tablet 20 mg PO DAILY 06/28/24 06/28/24 sodium chloride 0.9 % for 2.5 ml inhalation Q8H 06/28/24 06/28/24 nebulization Previous Rx's ?Medication ?Instructions ?Recorded furosemide 20 mg tablet (Lasix) 20 mg PO DAILY #20 tabs 06/28/24 levofloxacin 750 mg tablet 750 mg PO DAILY 5 days #5 tabs 06/28/24 prednisone 20 mg tablet See Rx Instructions .Route 06/28/24 .COMPLEX #12 tabs Allergies Allergy/AdvReac Type Severity Reaction Status Date / Time No Known Drug Allergies Allergy Verified 06/28/24 19:48 Opioid HPI Opioid Management Most Recent Opioid Data: Last Pain Scale 4 06/24/24 08:39 Last Pain Intensity 0 02/05/24 08:27 Last ORT Total Score 0 06/06/24 21:18 Last ORT Risk Category Low Risk 06/06/24 21:18 Review of Systems ROS Constitutional Reports: fever; Denies: chills Ears, nose, mouth, and throat Reports: nasal congestion; Denies: throat pain Cardiovascular Denies: chest pain Respiratory Reports: shortness of breath, cough, wheezing and chest congestion; Denies: coughing up blood Gastrointestinal Denies: nausea or vomiting Musculoskeletal Reports: extremity swelling; Denies: back pain or neck pain Integumentary/Breast Denies: rash Hematologic/Lymphatic Denies: easy bruising or easy bleeding PFSH PFS Medical History Hypomagnesemia ?E83.42 - Hypomagnesemia (ICD-10) Acute hypokalemia ?E87.6 - Hypokalemia (ICD-10) Pneumonia ?J18.9 - Pneumonia, unspecified organism (ICD-10) Acute exacerbation of chronic obstructive pulmonary disease ?J44.1 - Chronic obstructive pulmonary disease with (acute) exacerbation (ICD-10) CAD (coronary artery disease) ?I25.10 - Atherosclerotic heart disease of [place] coronary artery without angina pectoris (ICD-10) Chronic heart failure with preserved ejection fraction (HFpEF) ?I50.32 - Chronic diastolic (congestive) heart failure (ICD-10) Hypertension ?I10 - Essential (primary) hypertension (ICD-10) Myofascial pain ?M79.18 - Myalgia, other site (ICD-10) Greater trochanteric bursitis ?M70.60 - Trochanteric bursitis, unspecified hip (ICD-10) Osteoarthritis of right hip ?M16.11 - Unilateral primary osteoarthritis, right hip (ICD-10) Lumbar spondylosis ?M47.816 - Spondylosis without myelopathy or radiculopathy, lumbar region (ICD-10) Lumbar postlaminectomy syndrome ?M96.1 - Postlaminectomy syndrome, not elsewhere classified (ICD-10) Lumbar stenosis with neurogenic claudication ?M48.062 - Spinal stenosis, lumbar region with neurogenic claudication (ICD- 10) Depression ?F32.A - Depression, unspecified (ICD-10) Chronic low back pain ?M54.50 - Low back pain, unspecified (ICD-10) ?G89.29 - Other chronic pain (ICD-10) Hypoxia ?R09.02 - Hypoxemia (ICD-10) Heart murmur ?R01.1 - Cardiac murmur, unspecified (ICD-10) Chronic obstructive pulmonary disease ?J44.9 - Chronic obstructive pulmonary disease, unspecified (ICD-10) Asthma ?J45.909 - Unspecified asthma, uncomplicated (ICD-10) Surgical History Status post hip surgery ?Z98.890 - Other specified postprocedural states (ICD-10) H/O foot surgery ?Z98.890 - Other specified postprocedural states (ICD-10) H/O tubal ligation ?Z98.51 - Tubal ligation status (ICD-10) History of lumbar fusion ?Z98.1 - Arthrodesis status (ICD-10) Family History Mother Family history of CHF (congestive heart failure) Family history of hypertension Father Family history of hypertension Family history of myocardial infarction Social History Within the past year, how often did you have a drink containing alcohol: never Score interpretation: A score less than 3 is consistent with normal alcohol consumption. Smoking status: Never smoker Non-prescribed substance use: denies use Previous occupational history: retired Highest level of school completed/degree received: Associate degree: occupational, technical, vocational program Are you now , , , , never or living with a partner: In a typical week, how many times do you talk on the telephone with family, friends, or neighbors: 3 or more times per week How often do you get together with friends or relatives: 3 or more times per week How often do you attend taoism or tenriism services: 4 or more times per year Do you belong to any clubs or organizations such as taoism groups unions, [employer] or athletic groups, or school groups: no Total score: 2 Score interpretation: A score of greater than or equal to 2 indicates the lowest level of social isolation. Little interest or pleasure in doing things: not at all Feeling down, depressed, or hopeless: not at all Feel stressed/tense/nervous/anxious/difficulty sleeping: not at all Do you think of yourself as: straight/heterosexual Gender Identity: female Exam Narrative Exam Narrative: Gen.: Awake, alert, in no distress Head: Normocephalic, atraumatic ENT: Moist mucous membranes Respiratory: No respiratory distress, speaks in full sentences, diffuse Rales and expiratory wheezing. Cardio: Regular rate and rhythm Gastrointestinal: Abdomen is soft, nondistended and nontender to palpation Extremities: Moves extremities equally, 2+ pitting edema to the bilateral lower extremities Psych: Normal mood and affect Neuro: No focal neuro deficit Skin: Warm, dry, intact Constitutional Vital Signs, click to edit/add: Last Vital Signs Temp 100 F 06/28/24 19:48 Pulse 70 06/28/24 21:40 Resp 20 06/28/24 21:40 BP 126/63 06/28/24 19:48 Pulse Ox 96 06/28/24 21:40 O2 Del Method Nasal Cannula 06/28/24 20:55 O2 Flow Rate 3 06/28/24 20:55 Course Vital Signs Vital signs: Vital Signs Temperature 100 F 06/28/24 19:48 Pulse Rate 84 06/28/24 19:48 Respiratory Rate 18 06/28/24 19:48 Blood Pressure 126/63 06/28/24 19:48 Pulse Oximetry 94 L 06/28/24 19:48 Oxygen Delivery Method Nasal Cannula 06/28/24 19:48 Oxygen Delivery Flow Rate 3 06/28/24 19:48 Temperature 100 F 06/28/24 19:48 Pulse Rate 70 06/28/24 21:40 Respiratory Rate 20 06/28/24 21:40 Blood Pressure 126/63 06/28/24 19:48 Pulse Oximetry 96 06/28/24 21:40 Oxygen Delivery Method Nasal Cannula 06/28/24 20:55 Oxygen Delivery Flow Rate 3 06/28/24 20:55 Medical Decision Making MDM Narrative Medical decision making narrative: Patient maintains normal oxygen saturation on her regular 3 L, she was given b reathing treatment, steroids in the emergency department and labs show mild leukocytosis, normal lactic acid, normal troponin and normal BNP. Chest x-ray reviewed by the radiologist with no evidence of acute cardiopulmonary changes. I discussed with the patient home therapy versus admission for COPD exacerbation/upper respiratory infection. Her COVID test is negative. Patient would like to try outpatient management, I feel this is reasonable as her symptoms started today and she has an overall unremarkable workup. Given her history, she is placed back on Levaquin and prednisone. She has albuterol nebulizers and inhalers at home. She was also given a refill of her Lasix for peripheral edema. Return to the emergency department if symptoms change or worsen. SUPERVISED APC VISIT, PHYSICIAN ATTESTATION: Based on the medical record the care appears appropriate. ? Medical Records Medical records reviewed: Yes I reviewed the patient's medical records Lab Data Lab results reviewed: Yes I reviewed the patient's lab results Labs: Lab Results 06/28/24 06/28/24 Range/Units 20:00 20:05 WBC 13.8 H (4.0-11.0) 10^3/uL RBC 4.06 L (4.20-5.40) 10^6/uL Hgb 12.2 (12.0-16.0) g/dL Hct 38.2 (36.0-48.0) % MCV 94.1 (81.0-99.0) fL MCH 30.0 (26.7-34.0) pg MCHC 31.9 (29.9-35.2) g/dL RDW 13.1 (11.0-15.0) % Plt Count 209 (150-450) 10^3/uL MPV 9.4 L (9.5-13.5) fL Neut % (Auto) 78.5 H (43.0-75.0) % Lymph % (Auto) 11.5 L (20.5-60.0) % [place] % (Auto) 7.1 (1.7-12.0) % Eos % (Auto) 2.3 (0.9-7.0) % Baso % (Auto) 0.2 (0.2-2.0) % Neut # (Auto) 10.8 H (1.4-6.5) 10^3/uL Lymph # (Auto) 1.6 (1.2-3.8) 10^3/uL [place] # (Auto) 1.0 H (0.3-0.8) 10^3/uL Eos # (Auto) 0.3 (0.0-0.7) 10^3/uL Baso # (Auto) 0.0 (0.0-0.1) 10^3/uL Abs Immat Gran (auto) 0.06 H (0.00-0.03) 10^3/uL Imm/Tot Granulo (auto) 0.4 (0.0-0.5) % PT 10.9 (9.0-11.6) sec INR 1.03 VBG pH 7.455 H (7.330-7.430) VBG pCO2 47.8 (40.0-52.0) mmHg Sodium 137 (136-145) mmol/L Potassium 4.0 (3.5-5.1) mmol/L Chloride 100 (98-107) mmol/L Carbon Dioxide 33.6 H (21.0-32.0) mmol/L Anion Gap 7.4 BUN 11.0 (7.0-18.0) mg/dL Creatinine 1.18 H (0.55-1.02) mg/dL Est GFR ( Amer) 55 L (>=60) Est GFR (Non-Af Amer) 46 L (>=60) BUN/Creatinine Ratio 9.3 Glucose 137 H (74-106) mg/dL Lactate 1.7 (0.4-2.0) mmol/L Calcium 8.3 L (8.5-10.1) mg/dL Total Bilirubin 0.3 (0.2-1.0) mg/dL AST 7 L (15-37) U/L ALT 16 (14-59) U/L Alkaline Phosphatase 85 (46-116) U/L Troponin I High Sens 14.8 (4.0-51.3) pg/mL NT-Pro-B Natriuret Pep 371.0 (<=900.0) pg/mL Total Protein 6.1 L (6.4-8.2) g/dL Albumin 2.7 L (3.4-5.0) g/dL Globulin 3.4 g/dL Albumin/Globulin Ratio 0.8 SARS-CoV-2 Ag (CV2AG) Negative (NEGATIVE) Imaging Data Chest x-ray: Attestation: I have reviewed the pertinent imaging results. Radiologist's impression: ITS Impressions Chest X-Ray 06/28/24 19:53 Impression: No acute cardiopulmonary process. Electronically authenticated by: CONCHIS SUAREZ Date: 06/28/2024 21:38 ECG Data Attestation: I personally reviewed and interpreted this ECG as follows: (Normal sinus rhythm at a rate of 76, minimal ST depression with no acute ST elevation. No ectopy. EKG reviewed by attending physician) Discharge Plan Discharge Stand Alone Forms: Work/School Release, Portal Instructions Chief Complaint: Upper Respiratory Infection Clinical Impression: URI (upper respiratory infection), COPD exacerbation Patient Disposition: Home, Self-Care Time of Disposition Decision: 21:45 Condition: Good Prescriptions / Home Meds: New prednisone 20 mg tablet See Rx Instructions .ROUTE .COMPLEX Qty: 12 0RF Rx Instructions: 3 tabs daily for 2 days, then 2 tabs daily for 2 days, then 1 tab daily for 2 days levofloxacin 750 mg tablet 750 mg PO DAILY 5 Days Qty: 5 0RF furosemide [Lasix] 20 mg tablet 20 mg PO DAILY Qty: 20 0RF No Action albuterol sulfate 2.5 mg /3 mL (0.083 %) solution for nebulization 2.5 mg continuous nebulization Q4H PRN (Reason: shortness of breath or wheezing) furosemide 20 mg tablet 20 mg PO DAILY sodium chloride 0.9 % solution for nebulization 2.5 ml INHALATION Q8H magnesium oxide 400 mg (241.3 mg magnesium) tablet 400 mg PO DAILY Rx Instructions: WITH FOOD omeprazole 20 mg capsule,delayed release(DR/EC) 20 mg PO BID Trelegy Ellipta 200-62.5-25 mcg blister with device 1 inh INHALATION Q24H pramipexole [Mirapex] 0.25 mg tablet 0.25 mg PO QPM Rx Instructions: administer 2 - 3 hours before bedtime montelukast 10 mg tablet 10 mg PO DAILY paroxetine HCl 30 mg tablet 30 mg PO QDAY pregabalin 75 mg capsule 75 mg PO BID solifenacin 10 mg tablet 10 mg PO QDAY trazodone 100 mg tablet 100 mg PO .qhs baclofen 10 mg tablet 10 mg PO Q8H Print Language: Qatari Instructions: Upper Respiratory Infection (ED), COPD (Chronic Obstructive Pulm onary Disease) (ED) Referrals: Shaikh Ohara MD [Primary Care Provider] - 1 week
[2024-06-28 20:24] LABS: Basophils Percent Auto 0.2 % (0.2-2.0); Eosinophils Absolute Auto 0.3 10^3/uL (0.0-0.7); Eosinophils Percent Auto 2.3 % (0.9-7.0); Hematocrit 38.2 % (36.0-48.0); Hemoglobin 12.2 g/dL (12.0-16.0); Immature Granulocytes Abs Auto 0.06 10^3/uL (0.00-0.03); Immature Granulocytes Pct Auto 0.4 % (0.0-0.5); Lymphocytes Absolute Auto 1.6 10^3/uL (1.2-3.8); Lymphocytes Percent Auto 11.5 % (20.5-60.0); Mean Corpuscular HGB Conc 31.9 g/dL (29.9-35.2); Mean Corpuscular Volume 94.1 fL (81.0-99.0); Mean Platelet Volume 9.4 fL (9.5-13.5); Monocytes Percent Auto 7.1 % (1.7-12.0); Neutrophils Absolute Auto 10.8 10^3/uL (1.4-6.5); Neutrophils Percent Auto 78.5 % (43.0-75.0); Platelet Count 209 10^3/uL (150-450); Red Blood Count 4.06 10^6/uL (4.20-5.40); Red Cell Distribution Width 13.1 % (11.0-15.0); White Blood Count 13.8 10^3/uL (4.0-11.0)
[2024-06-28 20:27] LABS: PCO2 VBG 47.8 mmHg (40.0-52.0); pH VBG 7.455 (7.330-7.430)
[2024-06-28] MEDS: METHYLPREDNISOLONE SOD SUCC PF 125 MG/2 ML VIAL IVP (20:28)
[2024-06-28] MEDS: ALBUTEROL SULFATE 2.5 MG/3 ML VIAL NEB IH (20:30)
[2024-06-28 20:36] LABS: INR 1.03; Prothrombin Time 10.9 sec (9.0-11.6)
[2024-06-28 20:39] LABS: Alanine Aminotransferase 16 U/L (14-59); Albumin Globulin Ratio 0.8; Albumin Level 2.7 g/dL (3.4-5.0); Alkaline Phosphatase 85 U/L (46-116); Anion Gap 7.4; Aspartate Amino Transferase 7 U/L (15-37); BUN Creatinine Ratio 9.3; Bilirubin Total 0.3 mg/dL (0.2-1.0); Calcium 8.3 mg/dL (8.5-10.1); Carbon Dioxide 33.6 mmol/L (21.0-32.0); Chloride 100 mmol/L (98-107); Estimated GFR (African America 55 (>=60); Estimated GFR (Non-African Ame 46 (>=60); Globulin 3.4 g/dL; Glucose 137 mg/dL (74-106); Sodium 137 mmol/L (136-145); Total Protein 6.1 g/dL (6.4-8.2)
[2024-06-28 20:39] LABS: Internal Control Within Normal Limits; SARS-CoV-2 Ag NEGATIVE (NEGATIVE)
[2024-06-28 20:43] LABS: Lactate/Lactic Acid 1.7 mmol/L (0.4-2.0)
[2024-06-28 20:45] LABS: Troponin I High Sensitivity 14.8 pg/mL (4.0-51.3)
[2024-06-28] MEDS: FUROSEMIDE 20 MG TABLET PO (22:02)
[2024-06-28] MEDS: LEVOFLOXACIN 750 MG TABLET PO (22:02)
[2024-06-28] MEDS: PREDNISONE 20 MG TABLET 40 MG PO (22:02)
--- NOTE | 2024-06-28 22:58 | ECG_ITS ---
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
== END 2024-06-28 22:22 | disposition home or self-care (01) ==
PROVIDERS: Physician Assistant; Emergency Provider Student in an Organized Health Care Education/Training Program; PCP Internal Medicine
DX: J06.9 Acute upper respiratory infection, unspecified (principal); J44.1 Chronic obstructive pulmonary disease with (acute) exacerbation; Z99.81 Dependence on supplemental oxygen; I11.0 Hypertensive heart disease with heart failure; I50.32 Chronic diastolic (congestive) heart failure
CPT/HCPCS: 36415; 71045; 80053; 82800; 83605; 83880; 84484; 85025; 85610; 87040; 87811; 93005; 94640; 99285; J2919; J7512

== ENCOUNTER 2024-07-12 09:05 | Outpatient (OUT) | payer OTHER, SELFPAY ==
[2024-07-12 09:26] LABS: Basophils Absolute Auto 0.1 10^3/uL (0.0-0.1); Basophils Percent Auto 0.5 % (0.2-2.0); Eosinophils Absolute Auto 0.1 10^3/uL (0.0-0.7); Eosinophils Percent Auto 1.5 % (0.9-7.0); Hemoglobin 12.2 g/dL (12.0-16.0); Immature Granulocytes Abs Auto 0.22 10^3/uL (0.00-0.03); Immature Granulocytes Pct Auto 2.4 % (0.0-0.5); Lymphocytes Absolute Auto 1.6 10^3/uL (1.2-3.8); Lymphocytes Percent Auto 17.2 % (20.5-60.0); Mean Corpuscular HGB Conc 31.3 g/dL (29.9-35.2); Mean Corpuscular Hemoglobin 29.7 pg (26.7-34.0); Mean Corpuscular Volume 94.9 fL (81.0-99.0); Mean Platelet Volume 8.8 fL (9.5-13.5); Monocytes Absolute Auto 0.8 10^3/uL (0.3-0.8); Monocytes Percent Auto 8.3 % (1.7-12.0); Neutrophils Absolute Auto 6.4 10^3/uL (1.4-6.5); Neutrophils Percent Auto 70.1 % (43.0-75.0); Platelet Count 266 10^3/uL (150-450); Red Blood Count 4.11 10^6/uL (4.20-5.40); White Blood Count 9.1 10^3/uL (4.0-11.0)
[2024-07-12 10:11] LABS: Alanine Aminotransferase 17 U/L (14-59); Albumin Globulin Ratio 0.7; Albumin Level 2.7 g/dL (3.4-5.0); Alkaline Phosphatase 87 U/L (46-116); Anion Gap 10.9; Aspartate Amino Transferase 11 U/L (15-37); BUN Creatinine Ratio 7.9; Bilirubin Total 0.3 mg/dL (0.2-1.0); Calcium 8.7 mg/dL (8.5-10.1); Carbon Dioxide 30.9 mmol/L (21.0-32.0); Chloride 104 mmol/L (98-107); Chol HDL Ratio 4.2; Cholesterol 159 mg/dL (<=200); Estimated GFR (African America >60 (>=60); Estimated GFR (Non-African Ame >60 (>=60); Globulin 3.8 g/dL; Glucose 128 mg/dL (74-106); HDL Cholesterol 38 mg/dL (40-60); Potassium 3.8 mmol/L (3.5-5.1); Sodium 142 mmol/L (136-145); Total Protein 6.5 g/dL (6.4-8.2); Triglycerides 197 mg/dL (<=150); VLDL CHOLESTEROL 39.4 mg/dL
[2024-07-12 16:00] LABS: Creatinine Urine Random 28.29 mg/dL (20.00-300.00)
[2024-07-12 16:11] LABS: Microalbumin Urine Random <1.3 mg/dL (<=30.0)
== END 2024-07-12 09:06 | disposition home or self-care (01) ==
LOC: LAB 09:08
DX: E78.2 Mixed hyperlipidemia (principal); I10 Essential (primary) hypertension; I50.32 Chronic diastolic (congestive) heart failure; E66.01 Morbid (severe) obesity due to excess calories; Z68.41 Body mass index [BMI] 40.0-44.9, adult
CPT/HCPCS: 36415; 80053; 80061; 82043; 82570; 85025

== ENCOUNTER 2024-07-15 07:45 | Day surgery (SDC) | payer OTHER, SELFPAY ==
[2024-07-15 08:45] VITALS: BP 118/68; PULSE 78; TEMP 36.6; O2SAT 94
[2024-07-15 09:02] VITALS: BP 162/79; PULSE 77; O2SAT 92
[2024-07-15 09:04] VITALS: BP 154/78; PULSE 88; O2SAT 92
--- NOTE | 2024-07-15 09:12 | P.ON_ITS ---
Date of procedure: 07/15/24 Pre-op diagnosis: Pain due to thoracic spondylosis without myelopathy Post-op diagnosis: same as pre-op Procedure: Procedure: Left T7-8, 8-9 radiofrequency ablation Medications: Bupivacaine 0.25% 2cc, lidocaine 2% 3cc, dexamethasone 10mg The patient was seen and examined in the preoperative holding area.? The site was marked.? Written informed consent was obtained and placed on the chart.? The patient was brought to the medical procedure unit and placed in the prone position.? A timeout was completed verifying correct patient, procedure, positioning, and special requirements.? The skin overlying the target points, the designated medial branch, were prepped and draped in the usual sterile fashion.? The target point was achieved with a 20-gauge 15 cm with a 10 mm curved active tip radiofrequency cannula under direct fluoroscopic visualization .? The needle was inserted at level T7 on the left side. Needle tip position was confirmed with lateral fluoroscopic position.? Motor stimulation was carried out at 2 Hz up to 5 volts with the absence of extremity activity.? This was repeated at level T8, 9 on left side.?? Sensory stimulation was carried out.? Concordant pain was realized at the above- mentioned sites.? Then radiofrequency lesioning was carried out times 90 seconds at 80 degrees times 2 lesions at each level.? The radiofrequency probe was removed prior to cannula removal.? The above-mentioned injectate was placed in 1 mL increments.? The needle was removed.? Insertion sites were covered.? The patient was taken to the postoperative recovery area and monitored for an appropriate length of time before being found suitable for discharge in the company of a responsible adult. Anesthesia: Local Surgeon: Jayshree Vargas Pathology: none sent Condition: stable Disposition: no change
[2024-07-15] MEDS: BUPIVACAINE HCL 0.25% PF 25 MG/10 ML VIAL 2 ML INJ (09:13)
[2024-07-15] MEDS: DEXAMETHASONE SOD PHOS 10 MG/ML VIAL INJ (09:13)
[2024-07-15] MEDS: LIDOCAINE HCL 2% 400 MG/20 ML MDV 5 ML INJ (09:14)
== END 2024-07-15 09:17 | disposition home or self-care (01) ==
LOC: SURGOUT 07:47
PROVIDERS: Visit Provider Anesthesiology
DX: M47.814 Spondylosis without myelopathy or radiculopathy, thoracic region (principal)
CPT/HCPCS: 64633; 64634; J0665; J1100

== ENCOUNTER 2024-08-08 16:34 | Inpatient (IN) | payer OTHER, SELFPAY ==
[2024-08-08] VITALS (33 sets, daily range): BP systolic 108–160; BP diastolic 66–84; PULSE 73–100; TEMP 36.8–38.2; O2SAT 87–95; BMI 40.5
--- NOTE | 2024-08-08 17:15 | XR_ITS ---
The [address] [address] Patient Name: JHONATAN MONTOYA MRN: [id number] date: 1955 Sex: F Assigned Patient Location: ER Current Patient Location: ER Accession/Order Number: [id number] Exam Date: 08/08/2024 18:05 Report Date: 08/08/2024 19:21 At the request of: ASTER MOTA Procedure: XR chest 1V EXAM: XR chest 1V REASON FOR EXAM: Female, 69 years, Weakness, short of breath. TECHNIQUE: A single AP view of the chest is performed. COMPARISON: 06/28/2024. FINDINGS: Cardiac monitoring leads overlie the chest. The lungs are expanded and clear. Normal pleura. Normal size heart. Normal mediastinum and rosy. Normal visualized pulmonary arteries. Normal visualized aortic arch and descending thoracic aorta. Normal visualized thoracic spine. Normal visualized ribs, clavicles, and shoulders. There is no demonstrated abnormality of the visualized soft tissue structures of the upper abdomen. XR/XR chest 1V IMPRESSION: Normal examination of the chest. Electronically authenticated by: ANI BROWN Date: 08/08/2024 19:21
--- NOTE | 2024-08-08 17:15 | ECG_ITS ---
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
--- NOTE | 2024-08-08 17:17 | ED.GENADUL1 ---
HPI HPI - General Adult General Chief complaint: Shortness of Breath/Dyspnea Stated complaint: MUSCLE PAIN, WEAKNESS Time Seen by Provider: 08/08/24 16:39 Source: patient Mode of arrival: Wheelchair Limitations: no limitations History of Present Illness HPI narrative: 69-year-old female presents for shortness of breath and some weakness for a few days duration. She states she is always short of breath and she might be a little bit more short of breath than typical. She has had a small amount of vomiting but no diarrhea and she has not had a documented fever. Related Data Home Medications ?Medication ?Instructions ?Recorded ?Confirmed fluticasone fur. 200 mcg-umeclid 1 inh inhalation Q24H COPD 04/10/23 08/08/24 62.5 mcg-vilant 25 mcg inhalat.powder (Trelegy Ellipta) magnesium oxide 400 mg (241.3 mg 400 mg PO DAILY 04/10/23 08/08/24 magnesium) tablet omeprazole 20 mg capsule,delayed 20 mg PO BID 04/10/23 08/08/24 release montelukast 10 mg tablet 10 mg PO DAILY 09/14/23 08/08/24 pramipexole 0.25 mg tablet 0.25 mg PO QPM 09/14/23 08/08/24 (Mirapex) paroxetine HCl 30 mg tablet 30 mg PO QDAY 11/25/23 08/08/24 pregabalin 75 mg capsule 75 mg PO BID 11/25/23 08/08/24 solifenacin 10 mg tablet 10 mg PO QDAY 11/25/23 08/08/24 trazodone 100 mg tablet 100 mg PO .qhs 11/25/23 08/08/24 baclofen 10 mg tablet 10 mg PO Q8H 02/03/24 08/08/24 albuterol sulfate 2.5 mg/3 mL 2.5 mg continuous nebulization Q4H 06/06/24 08/08/24 (0.083 %) solution for nebulization PRN shortness of breath or wheezing furosemide 20 mg tablet 20 mg PO DAILY 06/28/24 08/08/24 sodium chloride 0.9 % for 2.5 ml inhalation Q8H 06/28/24 08/08/24 nebulization Allergies Allergy/AdvReac Type Severity Reaction Status Date / Time No Known Drug Allergies Allergy Verified 06/28/24 19:48 Opioid HPI Opioid Management Most Recent Opioid Data: Last Pain Scale 5 07/15/24 08:45 Last Pain Intensity 0 02/05/24 08:27 Last Pain Assessment 08/09/24 01:00 Last ED Pain Assessment 08/08/24 17:00 Last ORT Total Score 6 08/08/24 21:55 Last ORT Risk Category Moderate Risk 08/08/24 21:55 Review of Systems ROS Narrative A ten point review of systems is negative except as noted above. PFSH PFSH Medical History Hypomagnesemia ?E83.42 - Hypomagnesemia (ICD-10) Acute hypokalemia ?E87.6 - Hypokalemia (ICD-10) Pneumonia ?J18.9 - Pneumonia, unspecified organism (ICD-10) Acute exacerbation of chronic obstructive pulmonary disease ?J44.1 - Chronic obstructive pulmonary disease with (acute) exacerbation (ICD-10) CAD (coronary artery disease) ?I25.10 - Atherosclerotic heart disease of [place] coronary artery without angina pectoris (ICD-10) Chronic heart failure with preserved ejection fraction (HFpEF) ?I50.32 - Chronic diastolic (congestive) heart failure (ICD-10) Hypertension ?I10 - Essential (primary) hypertension (ICD-10) Myofascial pain ?M79.18 - Myalgia, other site (ICD-10) Greater trochanteric bursitis ?M70.60 - Trochanteric bursitis, unspecified hip (ICD-10) Osteoarthritis of right hip ?M16.11 - Unilateral primary osteoarthritis, right hip (ICD-10) Lumbar spondylosis ?M47.816 - Spondylosis without myelopathy or radiculopathy, lumbar region (ICD-10) Lumbar postlaminectomy syndrome ?M96.1 - Postlaminectomy syndrome, not elsewhere classified (ICD-10) Lumbar stenosis with neurogenic claudication ?M48.062 - Spinal stenosis, lumbar region with neurogenic claudication (ICD-10) Depression ?F32.A - Depression, unspecified (ICD-10) Chronic low back pain ?M54.50 - Low back pain, unspecified (ICD-10) ?G89.29 - Other chronic pain (ICD-10) Hypoxia ?R09.02 - Hypoxemia (ICD-10) Heart murmur ?R01.1 - Cardiac murmur, unspecified (ICD-10) Chronic obstructive pulmonary disease ?J44.9 - Chronic obstructive pulmonary disease, unspecified (ICD-10) Asthma ?J45.909 - Unspecified asthma, uncomplicated (ICD-10) Surgical History Status post hip surgery ?Z98.890 - Other specified postprocedural states (ICD-10) H/O foot surgery ?Z98.890 - Other specified postprocedural states (ICD-10) H/O tubal ligation ?Z98.51 - Tubal ligation status (ICD-10) History of lumbar fusion ?Z98.1 - Arthrodesis status (ICD-10) Family History Mother Family history of CHF (congestive heart failure) Family history of hypertension Father Family history of hypertension Family history of myocardial infarction Social History Within the past year, how often did you have a drink containing alcohol: never Score interpretation: A score less than 3 is consistent with normal alcohol consumption. Smoking status: Never smoker Non-prescribed substance use: denies use Previous occupational history: retired Highest level of school completed/degree received: Associate degree: occupational, technical, vocational program Are you now , , , , never or living with a partner: In a typical week, how many times do you talk on the telephone with family, friends, or neighbors: 3 or more times per week How often do you get together with friends or relatives: 3 or more times per week How often do you attend cheondoism or voodoo services: 4 or more times per year Do you belong to any clubs or organizations such as cheondoism groups unions, fraternal or athletic groups, or school groups: no Total score: 2 Score interpretation: A score of greater than or equal to 2 indicates the lowest level of social isolation. Little interest or pleasure in doing things: not at all Feeling down, depressed, or hopeless: not at all Feel stressed/tense/nervous/anxious/difficulty sleeping: not at all Do you think of yourself as: straight/heterosexual Gender Identity: female Exam Narrative Exam Narrative: Nurses note and vital signs reviewed and patient is not hypoxic. General: The patient appears in no apparent respiratory distress. Skin: Warm, dry, no pallor noted. There is no rash noted. Head: Normocephalic, atraumatic Eye: Normal conjunctiva, no drainage Ears, Nose, Mouth, and Throat: oral mucosa is moist. Nares patent. Cardiovascular: Regular Rate and Rhythm Respiratory: Bilateral rhonchi throughout Back: non-tender GI: Soft and nontender Musculoskeletal: The patient has no evidence of calf tenderness, no pitting edema, symmetrical pulses noted bilaterally Neurological: A&O, normal speech Psychiatric: Cooperative Constitutional Vital Signs, click to edit/add: Last Vital Signs Temp 98.2 F 08/08/24 21:01 Pulse 63 08/09/24 00:00 Resp 22 H 08/08/24 22:01 BP 108/66 08/08/24 22:01 Pulse Ox 92 L 08/08/24 22:01 O2 Del Method Nasal Cannula 08/08/24 22:01 O2 Flow Rate 5 08/08/24 22:01 Course Vital Signs Vital signs: Vital Signs Temperature 99 F 08/08/24 16:47 Pulse Rate 79 08/08/24 16:47 Respiratory Rate 24 H 08/08/24 16:47 Blood Pressure 160/82 H 08/08/24 16:47 Pulse Oximetry 87 L 08/08/24 16:47 Oxygen Delivery Method Nasal Cannula 08/08/24 16:47 Oxygen Delivery Flow Rate 3 08/08/24 16:47 Temperature 98.2 F 08/08/24 21:01 Pulse Rate 63 08/09/24 00:00 Respiratory Rate 22 H 08/08/24 22:01 Blood Pressure 108/66 08/08/24 22:01 Pulse Oximetry 92 L 08/08/24 22:01 Oxygen Delivery Method Nasal Cannula 08/08/24 22:01 Oxygen Delivery Flow Rate 5 08/08/24 22:01 Medical Decision Making Lab Data Labs: Lab Results 08/08/24 08/08/24 08/08/24 Range/Units 17:00 17:05 20:54 WBC 12.5 H (4.0-11.0) 10^3/uL RBC 4.26 (4.20-5.40) 10^6/uL Hgb 12.6 (12.0-16.0) g/dL Hct 40.2 (36.0-48.0) % MCV 94.4 (81.0-99.0) fL MCH 29.6 (26.7-34.0) pg MCHC 31.3 (29.9-35.2) g/dL RDW 13.2 (11.0-15.0) % Plt Count 248 (150-450) 10^3/uL MPV 9.4 L (9.5-13.5) fL Neut % (Auto) 80.6 H (43.0-75.0) % Lymph % (Auto) 9.9 L (20.5-60.0) % [place] % (Auto) 7.9 (1.7-12.0) % Eos % (Auto) 0.7 L (0.9-7.0) % Baso % (Auto) 0.3 (0.2-2.0) % Neut # (Auto) 10.0 H (1.4-6.5) 10^3/uL Lymph # (Auto) 1.2 (1.2-3.8) 10^3/uL [place] # (Auto) 1.0 H (0.3-0.8) 10^3/uL Eos # (Auto) 0.1 (0.0-0.7) 10^3/uL Baso # (Auto) 0.0 (0.0-0.1) 10^3/uL Abs Immat Gran (auto) 0.07 H (0.00-0.03) 10^3/uL Imm/Tot Granulo (auto) 0.6 H (0.0-0.5) % Puncture Site Rt rad ABG pH 7.425 (7.350-7.450) ABG pCO2 48.5 H (35.0-45.0) mmHg ABG pO2 55.0 L* (80.0-100.0) mmHg ABG HCO3 31.8 H (22.0-26.0) mmol/L ABG O2 Saturation 90.1 % ABG Base Excess 7.4 H (-2.0-2.0) mmol/L Hardy Test Positive (POSITIVE) O2 Liters/Min 3.5 Sodium 140 (136-145) mmol/L Potassium 3.4 L (3.5-5.1) mmol/L Chloride 100 (98-107) mmol/L Carbon Dioxide 30.1 (21.0-32.0) mmol/L Anion Gap 13.3 BUN 6.0 L (7.0-18.0) mg/dL Creatinine 1.18 H (0.55-1.02) mg/dL Est GFR ( Amer) 55 L (>=60 mL/min/1.73m^2) Est GFR (Non-Af Amer) 46 L (>=60 mL/min/1.73m^2) BUN/Creatinine Ratio 5.1 Glucose 118 H (74-106) mg/dL Calcium 9.1 (8.5-10.1) mg/dL Total Creatine Kinase 50 (26-192) U/L Myoglobin 46 (9-82) ng/mL Troponin I High Sens 14.5 (4.0-51.3) pg/mL Influenza Type A Ag Negative Influenza Type B Ag Negative SARS-CoV-2 Ag (CV2AG) Negative (NEGATIVE) Discharge Plan Discharge Chief Complaint: Shortness of Breath/Dyspnea Clinical Impression: COPD exacerbation, Acute exacerbation of COPD with asthma, URI (upper respiratory infection), Hypoxia Patient Disposition: Admitted As Inpatient Time of Disposition Decision: 21:11 Condition: Fair Discharge Date/Time: 08/08/24 21:49
[2024-08-08] MEDS: IPRATROPIUM/ALBUTEROL SULFATE 3 ML AMPUL.NEB IH ×2 (17:35→20:11)
[2024-08-08 17:36] LABS: Basophils Percent Auto 0.3 % (0.2-2.0); Eosinophils Absolute Auto 0.1 10^3/uL (0.0-0.7); Eosinophils Percent Auto 0.7 % (0.9-7.0); Hematocrit 40.2 % (36.0-48.0); Hemoglobin 12.6 g/dL (12.0-16.0); Immature Granulocytes Abs Auto 0.07 10^3/uL (0.00-0.03); Immature Granulocytes Pct Auto 0.6 % (0.0-0.5); Lymphocytes Absolute Auto 1.2 10^3/uL (1.2-3.8); Lymphocytes Percent Auto 9.9 % (20.5-60.0); Mean Corpuscular HGB Conc 31.3 g/dL (29.9-35.2); Mean Corpuscular Hemoglobin 29.6 pg (26.7-34.0); Mean Corpuscular Volume 94.4 fL (81.0-99.0); Mean Platelet Volume 9.4 fL (9.5-13.5); Monocytes Percent Auto 7.9 % (1.7-12.0); Neutrophils Percent Auto 80.6 % (43.0-75.0); Platelet Count 248 10^3/uL (150-450); Red Blood Count 4.26 10^6/uL (4.20-5.40); Red Cell Distribution Width 13.2 % (11.0-15.0); White Blood Count 12.5 10^3/uL (4.0-11.0)
[2024-08-08 17:47] LABS: Troponin I High Sensitivity 14.5 pg/mL (4.0-51.3)
[2024-08-08 18:08] LABS: Influenza Virus A Antigen Negative; Influenza Virus B Antigen Negative; Internal Control Within Normal Limits; SARS-CoV-2 Ag NEGATIVE (NEGATIVE)
[2024-08-08 18:33] LABS: Creatine Kinase 50 U/L (26-192); Myoglobin 46 ng/mL (9-82)
--- NOTE | 2024-08-08 18:44 | CT_ITS ---
The [address] [address] Patient Name: JHONATAN MONTOYA MRN: [id number] date: 1955 Sex: F Assigned Patient Location: ER Current Patient Location: ED.MAIN Accession/Order Number: [id number] Exam Date: 08/08/2024 19:20 Report Date: 08/08/2024 20:41 At the request of: ASTER MOTA Procedure: CT angio chest CTA OF THE CHEST WITH CONTRAST: 08/08/2024 7:20 PM EDT HISTORY: Shortness of breath. TECHNIQUE: Initially, thin section noncontrast images through portions of the chest were obtained for the purpose of establishing proper bolus timing of contrast. Subsequently, thin section axial CT images were obtained through the chest after intravenous administration of 100 cc of Omnipaque 350. To optimally assess the thoracic vasculature, the original axial data was used to create 3D volume rendered, multiplanar reformatted and/or maximum intensity projection images in various planes. The axial and reformatted data were reviewed for this report. On a separate workstation, 3-D reconstructions of the thoracic aorta and pulmonary arteries obtained. Dose reduction techniques were achieved by using automated exposure control and/or adjustment of mA and/or kV according to patient size and/or use of iterative reconstruction technique. COMPARISON: CTA chest 11/25/2023 and 04/18/2023 FINDINGS: Bolus opacification of the pulmonary arteries was adequate for purposes of diagnosis. There is no central, lobar, or segmental pulmonary arterial filling defect to suggest pulmonary embolus. There is a bibasilar atelectasis dependent portions more extensive on the right. Follow-up to ensure resolution and exclude development of pneumonia or other more aggressive process. Rest of lungs are expanded and clear. No pneumothorax or pleural effusion. No focal mass or nodule. There is a slightly enlarged subcarinal lymph node extending to the right of midline medial to the right lower lobe bronchus. This demonstrates pathologic enlargement measuring 1.5 cm short axis and at least 1.8 cm long axis. This has developed increased in size since 04/18/2023 and 11/25/2023. Uncertain if reactive given right lower lobe changes or malignant. Short-term follow-up. Could be reactive from right lower lobe lung atelectatic changes and/or infiltrate. No additional enlarged mediastinal or hilar lymph nodes. The heart and pericardium are unremarkable. There is no pericardial effusion. Normal appearance and caliber thoracic aorta. No dissection. No pulmonary venous congestion. Chest wall is intact. No axillary adenopathy or osseous abnormality. Mild fatty liver infiltration. No acute upper abdominal findings. There is a fluid and debris in the mid intrathoracic esophagus some mild prominence. Similar appearance compared with prior exams. Correlate for history of gastroesophageal reflux. No hiatal hernia. CT/CT angio chest IMPRESSION: 1. More prominent medial and dependent right lower lobe atelectatic changes. Uncertain etiology. Query infection and pneumonia related versus occult or aggressive process/malignancy. Short-term follow-up to ensure resolution. Consider bronchoscopy for diagnosis and treatment if persistent. Suggest follow-up chest CT and 4-6 weeks, or as clinically directed based on symptomatology. 2. Enlarged subcarinal lymph node/lymphadenopathy to the right of midline. Uncertain malignant or reactive due to right lower lobe changes. Attention on follow-up imaging. 3. Minor dependent left lung base atelectasis. 4. Negative for acute PE. 5. Mild distention of the intrathoracic esophagus with some debris and fluid, likely GERD related. Electronically authenticated by: ELLYN CARVALHO Date: 08/08/2024 20:41
[2024-08-08 18:52] LABS: Anion Gap 13.3; BUN Creatinine Ratio 5.1; Calcium 9.1 mg/dL (8.5-10.1); Carbon Dioxide 30.1 mmol/L (21.0-32.0); Chloride 100 mmol/L (98-107); Estimated GFR (African America 55 (>=60 mL/min/1.73m^2); Estimated GFR (Non-African Ame 46 (>=60 mL/min/1.73m^2); Glucose 118 mg/dL (74-106); Potassium 3.4 mmol/L (3.5-5.1); Sodium 140 mmol/L (136-145)
--- NOTE | 2024-08-08 20:00 | ED_ITS ---
HPI - SOB/Dyspnea General Chief Complaint: Shortness of Breath/Dyspnea Stated Complaint: MUSCLE PAIN, WEAKNESS Time Seen by Provider: 08/08/24 16:39 Source: patient Mode of arrival: Wheelchair Limitations: no limitations History of Present Illness HPI Narrative: This 69-year-old female was signed out to me at shift change. She presents to the emergency department for evaluation of shortness of breath. She has a history of COPD however she has never been a smoker. She does use home oxygen. She also was recently started on BiPAP but has not started using it yet. She is not currently on any antibiotics. She received a DuoNeb prior to arrival and was able to cough up some thick phlegm. Routine labs are reviewed. Her white count is mildly elevated at 12.5. She has normal hemoglobin. Electrolytes are normal with a mild bump in her creatinine. She has a normal troponin. COVID-19 and influenza testing are both negative. Chest x-ray was reviewed by radiology with no acute findings and CTA is pending at this time. After her CT scan she had increasing shortness of breath and was reevaluated. She has marked rhonchi of the upper airways. She states she cannot cough any of this up. Respiratory therapy was called for an additional DuoNeb treatment and we will try a Mucomyst treatment to see if this will help to loosen up some of the phlegm that she has. I did review her CTA and it is noted to have a consolidative infiltrate that is possibly a pneumonia and she was empirically started on Rocephin and Zithromax. CT scan of the chest shows prominent medial dependent right lower lobe atelecta tic changes of uncertain etiology questioning infection and pneumonia versus occult or aggressive process/malignancy with recommendation for short-term follow-up and consideration for bronchoscopy as well as an enlarged subcarinal lymph node/lymphadenopathy to the right of the midline which is also uncertain to be reactive or malignant. It was negative for acute PE. There is also mild distention of the intrathoracic esophagus with some fluid and debris likely related to GERD. The patient did spike a fever while in the emergency department of 100.8. She was medicated with Tylenol 2 sets of blood cultures were ordered prior to initiation of her antibiotics. The case was discussed with the hospitalist and she is excepted for admission to [facility]. Related Data Home Medications ?Medication ?Instructions ?Recorded ?Confirmed fluticasone fur. 200 mcg-umeclid 1 inh inhalation Q24H COPD 04/10/23 08/08/24 62.5 mcg-vilant 25 mcg inhalat.powder (Trelegy Ellipta) magnesium oxide 400 mg (241.3 mg 400 mg PO DAILY 04/10/23 08/08/24 magnesium) tablet omeprazole 20 mg capsule,delayed 20 mg PO BID 04/10/23 08/08/24 release montelukast 10 mg tablet 10 mg PO DAILY 09/14/23 08/08/24 pramipexole 0.25 mg tablet 0.25 mg PO QPM 09/14/23 08/08/24 (Mirapex) paroxetine HCl 30 mg tablet 30 mg PO QDAY 11/25/23 08/08/24 pregabalin 75 mg capsule 75 mg PO BID 11/25/23 08/08/24 solifenacin 10 mg tablet 10 mg PO QDAY 11/25/23 08/08/24 trazodone 100 mg tablet 100 mg PO .qhs 11/25/23 08/08/24 baclofen 10 mg tablet 10 mg PO Q8H 02/03/24 08/08/24 albuterol sulfate 2.5 mg/3 mL 2.5 mg continuous nebulization Q4H 06/06/24 08/08/24 (0.083 %) solution for nebulization PRN shortness of breath or wheezing furosemide 20 mg tablet 20 mg PO DAILY 06/28/24 08/08/24 sodium chloride 0.9 % for 2.5 ml inhalation Q8H 06/28/24 08/08/24 nebulization Allergies Allergy/AdvReac Type Severity Reaction Status Date / Time No Known Drug Allergies Allergy Verified 06/28/24 19:48 [facility] Medical History Hypomagnesemia ?E83.42 - Hypomagnesemia (ICD-10) Acute hypokalemia ?E87.6 - Hypokalemia (ICD-10) Pneumonia ?J18.9 - Pneumonia, unspecified organism (ICD-10) Acute exacerbation of chronic obstructive pulmonary disease ?J44.1 - Chronic obstructive pulmonary disease with (acute) exacerbation (ICD-10) CAD (coronary artery disease) ?I25.10 - Atherosclerotic heart disease of [place] coronary artery without angina pectoris (ICD-10) Chronic heart failure with preserved ejection fraction (HFpEF) ?I50.32 - Chronic diastolic (congestive) heart failure (ICD-10) Hypertension ?I10 - Essential (primary) hypertension (ICD-10) Myofascial pain ?M79.18 - Myalgia, other site (ICD-10) Greater trochanteric bursitis ?M70.60 - Trochanteric bursitis, unspecified hip (ICD-10) Osteoarthritis of right hip ?M16.11 - Unilateral primary osteoarthritis, right hip (ICD-10) Lumbar spondylosis ?M47.816 - Spondylosis without myelopathy or radiculopathy, lumbar region (ICD-10) Lumbar postlaminectomy syndrome ?M96.1 - Postlaminectomy syndrome, not elsewhere classified (ICD-10) Lumbar stenosis with neurogenic claudication ?M48.062 - Spinal stenosis, lumbar region with neurogenic claudication (ICD- 10) Depression ?F32.A - Depression, unspecified (ICD-10) Chronic low back pain ?M54.50 - Low back pain, unspecified (ICD-10) ?G89.29 - Other chronic pain (ICD-10) Hypoxia ?R09.02 - Hypoxemia (ICD-10) Heart murmur ?R01.1 - Cardiac murmur, unspecified (ICD-10) Chronic obstructive pulmonary disease ?J44.9 - Chronic obstructive pulmonary disease, unspecified (ICD-10) Asthma ?J45.909 - Unspecified asthma, uncomplicated (ICD-10) Surgical History Status post hip surgery ?Z98.890 - Other specified postprocedural states (ICD-10) H/O foot surgery ?Z98.890 - Other specified postprocedural states (ICD-10) H/O tubal ligation ?Z98.51 - Tubal ligation status (ICD-10) History of lumbar fusion ?Z98.1 - Arthrodesis status (ICD-10) Family History Mother Family history of CHF (congestive heart failure) Family history of hypertension Father Family history of hypertension Family history of myocardial infarction Social History Within the past year, how often did you have a drink containing alcohol: never Score interpretation: A score less than 3 is consistent with normal alcohol consumption. Smoking status: Never smoker Non-prescribed substance use: denies use Previous occupational history: retired Highest level of school completed/degree received: Associate degree: occupational, technical, vocational program Are you now , , , , never or living with a partner: In a typical week, how many times do you talk on the telephone with family, friends, or neighbors: 3 or more times per week How often do you get together with friends or relatives: 3 or more times per week How often do you attend synagogue or temple services: 4 or more times per year Do you belong to any clubs or organizations such as synagogue groups unions, [employer] or athletic groups, or school groups: no Total score: 2 Score interpretation: A score of greater than or equal to 2 indicates the lowest level of social isolation. Little interest or pleasure in doing things: not at all Feeling down, depressed, or hopeless: not at all Feel stressed/tense/nervous/anxious/difficulty sleeping: not at all Do you think of yourself as: straight/heterosexual Gender Identity: female Exam Constitutional Vital Signs, click to edit/add: Last Vital Signs Temp 100.8 F H 08/08/24 20:36 Pulse 90 08/08/24 20:13 Resp 17 08/08/24 20:00 BP 139/84 08/08/24 18:59 Pulse Ox 91 L 08/08/24 20:13 O2 Del Method Nasal Cannula 08/08/24 20:13 O2 Flow Rate 3 08/08/24 20:13 Course Vital Signs Vital signs: Vital Signs Temperature 99 F 08/08/24 16:47 Pulse Rate 79 08/08/24 16:47 Respiratory Rate 24 H 08/08/24 16:47 Blood Pressure 160/82 H 08/08/24 16:47 Pulse Oximetry 87 L 08/08/24 16:47 Oxygen Delivery Method Nasal Cannula 08/08/24 16:47 Oxygen Delivery Flow Rate 3 08/08/24 16:47 Temperature 100.8 F H 08/08/24 20:36 Pulse Rate 90 08/08/24 20:13 Respiratory Rate 17 08/08/24 20:00 Blood Pressure 139/84 08/08/24 18:59 Pulse Oximetry 91 L 08/08/24 20:13 Oxygen Delivery Method Nasal Cannula 08/08/24 20:13 Oxygen Delivery Flow Rate 3 08/08/24 20:13 MDM - SOB/Dyspnea Medical Records Medical records narrative: The [address] [address] [address] Scan Report Signed Patient: JHONATAN MONTOYA MR#: [id number] : 1955 Acct:[id number] Age/Sex: 69 / F ADM Date: 08/08/24 Loc: ER Attending Dr: Ordering Physician: Aster Mota M.D. Date of Service: 08/08/24 Procedure(s): CT angio chest Accession Number(s): [id number] cc: AIDA BLANC~ The [address] [address] Patient Name: JHONATAN MONTOYA MRN: [id number] date: 1955 Sex: F Assigned Patient Location: ER Current Patient Location: ED.MAIN Accession/Order Number: [id number] Exam Date: 08/08/2024 19:20 Report Date: 08/08/2024 20:41 At the request of: ASTER MOTA Procedure: CT angio chest CTA OF THE CHEST WITH CONTRAST: 08/08/2024 7:20 PM EDT HISTORY: Shortness of breath. TECHNIQUE: Initially, thin section noncontrast images through portions of the chest were obtained for the purpose of establishing proper bolus timing of contrast. Subsequently, thin section axial CT images were obtained through the chest after intravenous administration of 100 cc of Omnipaque 350. To optimally assess the thoracic vasculature, the original axial data was used to create 3D volume rendered, multiplanar reformatted and/or maximum intensity projection images in various planes. The axial and reformatted data were reviewed for this report. On a separate workstation, 3-D reconstructions of the thoracic aorta and pulmonary arteries obtained. Dose reduction techniques were achieved by using automated exposure control and/or adjustment of mA and/or kV according to patient size and/or use of iterative reconstruction technique. COMPARISON: CTA chest 11/25/2023 and 04/18/2023 FINDINGS: Bolus opacification of the pulmonary arteries was adequate for purposes of diagnosis. There is no central, lobar, or segmental pulmonary arterial filling defect to suggest pulmonary embolus. There is a bibasilar atelectasis dependent portions more extensive on the right. Follow-up to ensure resolution and exclude development of pneumonia or other more aggressive process. Rest of lungs are expanded and clear. No pneumothorax or pleural effusion. No focal mass or nodule. There is a slightly enlarged subcarinal lymph node extending to the right of midline medial to the right lower lobe bronchus. This demonstrates pathologic enlargement measuring 1.5 cm short axis and at least 1.8 cm long axis. This has developed increased in size since 04/18/2023 and 11/25/2023. Uncertain if reactive given right lower lobe changes or malignant. Short-term follow-up. Could be reactive from right lower lobe lung atelectatic changes and/or infiltrate. No additional enlarged mediastinal or hilar lymph nodes. The heart and pericardium are unremarkable. There is no pericardial effusion. Normal appearance and caliber thoracic aorta. No dissection. No pulmonary venous congestion. Chest wall is intact. No axillary adenopathy or osseous abnormality. Mild fatty liver infiltration. No acute upper abdominal findings. There is a fluid and debris in the mid intrathoracic esophagus some mild prominence. Similar appearance compared with prior exams. Correlate for history of gastroesophageal reflux. No hiatal hernia. CT/CT angio chest IMPRESSION: 1. More prominent medial and dependent right lower lobe atelectatic changes. Uncertain etiology. Query infection and pneumonia related versus occult or aggressive process/malignancy. Short-term follow-up to ensure resolution. Consider bronchoscopy for diagnosis and treatment if persistent. Suggest follow-up chest CT and 4-6 weeks, or as clinically directed based on symptomatology. 2. Enlarged subcarinal lymph node/lymphadenopathy to the right of midline. Uncertain malignant or reactive due to right lower lobe changes. Attention on follow-up imaging. 3. Minor dependent left lung base atelectasis. 4. Negative for acute PE. 5. Mild distention of the intrathoracic esophagus with some debris and fluid, likely GERD related. Lab Data Attestation: I reviewed the patient's lab results. Labs: Lab Results 08/08/24 08/08/24 Range/Units 17:00 17:05 WBC 12.5 H (4.0-11.0) 10^3/uL RBC 4.26 (4.20-5.40) 10^6/uL Hgb 12.6 (12.0-16.0) g/dL Hct 40.2 (36.0-48.0) % MCV 94.4 (81.0-99.0) fL MCH 29.6 (26.7-34.0) pg MCHC 31.3 (29.9-35.2) g/dL RDW 13.2 (11.0-15.0) % Plt Count 248 (150-450) 10^3/uL MPV 9.4 L (9.5-13.5) fL Neut % (Auto) 80.6 H (43.0-75.0) % Lymph % (Auto) 9.9 L (20.5-60.0) % [place] % (Auto) 7.9 (1.7-12.0) % Eos % (Auto) 0.7 L (0.9-7.0) % Baso % (Auto) 0.3 (0.2-2.0) % Neut # (Auto) 10.0 H (1.4-6.5) 10^3/uL Lymph # (Auto) 1.2 (1.2-3.8) 10^3/uL [place] # (Auto) 1.0 H (0.3-0.8) 10^3/uL Eos # (Auto) 0.1 (0.0-0.7) 10^3/uL Baso # (Auto) 0.0 (0.0-0.1) 10^3/uL Abs Immat Gran (auto) 0.07 H (0.00-0.03) 10^3/uL Imm/Tot Granulo (auto) 0.6 H (0.0-0.5) % Sodium 140 (136-145) mmol/L Potassium 3.4 L (3.5-5.1) mmol/L Chloride 100 (98-107) mmol/L Carbon Dioxide 30.1 (21.0-32.0) mmol/L Anion Gap 13.3 BUN 6.0 L (7.0-18.0) mg/dL Creatinine 1.18 H (0.55-1.02) mg/dL Est GFR ( Amer) 55 L (>=60 mL/min/1.73m^2) Est GFR (Non-Af Amer) 46 L (>=60 mL/min/1.73m^2) BUN/Creatinine Ratio 5.1 Glucose 118 H (74-106) mg/dL Calcium 9.1 (8.5-10.1) mg/dL Total Creatine Kinase 50 (26-192) U/L Myoglobin 46 (9-82) ng/mL Troponin I High Sens 14.5 (4.0-51.3) pg/mL Influenza Type A Ag Negative Influenza Type B Ag Negative SARS-CoV-2 Ag (CV2AG) Negative (NEGATIVE) Discharge Plan Discharge Chief Complaint: Shortness of Breath/Dyspnea Clinical Impression: COPD exacerbation, Acute exacerbation of COPD with asthma, URI (upper respiratory infection), Hypoxia Patient Disposition: Admitted As Inpatient Time of Disposition Decision: 21:11 Condition: Fair Prescriptions / Home Meds: No Action albuterol sulfate 2.5 mg /3 mL (0.083 %) solution for nebulization 2.5 mg continuous nebulization Q4H PRN (Reason: shortness of breath or wheezing) furosemide 20 mg tablet 20 mg PO DAILY sodium chloride 0.9 % solution for nebulization 2.5 ml INHALATION Q8H magnesium oxide 400 mg (241.3 mg magnesium) tablet 400 mg PO DAILY Rx Instructions: WITH FOOD omeprazole 20 mg capsule,delayed release(DR/EC) 20 mg PO BID Trelegy Ellipta 200-62.5-25 mcg blister with device 1 inh INHALATION Q24H pramipexole [Mirapex] 0.25 mg tablet 0.25 mg PO QPM Rx Instructions: administer 2 - 3 hours before bedtime montelukast 10 mg tablet 10 mg PO DAILY paroxetine HCl 30 mg tablet 30 mg PO QDAY pregabalin 75 mg capsule 75 mg PO BID solifenacin 10 mg tablet 10 mg PO QDAY trazodone 100 mg tablet 100 mg PO .qhs baclofen 10 mg tablet 10 mg PO Q8H Print Language: [place] Referrals: AIDA BLANC [Primary Care Provider] - 1 week
[2024-08-08] MEDS: ACETYLCYSTEINE 400 MG/4 ML VIAL 100 MG IH (20:11)
[2024-08-08] MEDS: METHYLPREDNISOLONE SOD SUCC PF 125 MG/2 ML VIAL IVP (20:19)
[2024-08-08] MEDS: CEFTRIAXONE 1,000 MG in 0.9 % SODIUM CHLORIDE 50 ML 100 MG IV (20:30)
[2024-08-08] MEDS: AZITHROMYCIN 500 MG in 0.9 % SODIUM CHLORIDE 250 ML 250 MG IV (20:31)
[2024-08-08] MEDS: MAGNESIUM SULFATE IN WATER 2 GM/50 ML PREMIX IV (20:31)
[2024-08-08] MEDS: ACETAMINOPHEN 325 MG TABLET 650 MG PO (21:01)
[2024-08-08 21:05] LABS: ABG PCO2 48.5 mmHg (35.0-45.0); pH ABG 7.425 (7.350-7.450)
[2024-08-08 21:06] LABS: Allen Test POSITIVE (POSITIVE); Base Excess ABG 7.4 mmol/L (-2.0-2.0); HCO3 ABG 31.8 mmol/L (22.0-26.0); Liters per Minute 3.5; O2 Mode NASAL CANNULA; Oxygen Saturation ABG 90.1 %
[2024-08-08 21:07] LABS: Puncture Site RT RAD
--- OUTSIDE RECORDS SUMMARY | 2024-08-08 21:56 | XMS_ITS | CCD ---
Author Organization [facility] Care Team Providers Care Outreach Nurse Name Role Phone Steph Collier Attending Provider Unavailable Chantel Rainey Primary Care Provider Unavailabl e Joana, Herberth Attending Provider Unavailable Unavailable Primary Care Provider Unavailabl e UNKNOWN, PHYSICIAN Referring Unavailable JOO BRAVO Attending Unavailable JOO BRAVO Admitting Unavailable UNKNOWN, PHYSICIAN Primary Care Unavailable Rena Hurd Unavailable Joana, Herberth Unavailable Gato Loco Unavailable Steph Collier Attending Provider [phone] MD Gato Loco Attending Provider [phone] MD Nicky Ohara Primary Care Provider [phone] Gilma Trent Unavailable JOANA, HERBERTH Attending Unavailable JOANA, HERBERTH Admitting Unavailable FAWWAD, SAUNDERS H Primary Care Unavailable JOANA, HERBERTH Consulting Unavailable SAMSA .BO Admitting Unavailable FAWWAD, SAUNDERS H Primary Care Unavailable FAWWAD, SAUDNERS H Consulting Unavailable JOHNY .BO Attending Unavailable BRITTANY GALDAMEZ Consulting Unavailable KARASIK ., DR SANTIAGO Admitting Unavailabl e KARASIK ., DR SANTIAGO Attending Unavailabl e KARASIK ., DR SANTIAGO Consulting Unavailabl e FAWWAD, SAUNDERS H Primary Care Unavailable REDFORD, DR BRITTANY Elizondo Consulting Unavailable MARTIREBBETH, DR STEPH Holland Consulting Unavailable KARASIK ., DR SANTIAGO Admitting Unavailabl e KARASIK ., DR SANTIAGO Attending Unavailabl e KARASIK ., DR SANTIAGO Consulting Unavailabl e FAWWAD, SAUNDERS H Primary Care Unavailable JOANA, HERBERTH Admitting Unavailable JAONA, HERBERTH Attending Unavailable FAWWAD, SAUNDERS H Primary [...] Unavailable Gato Loco Attending UnavailGato Chatterjee Admitting UnavailSteph Strong Attending Provider FAWWAD, SAUNDERS Attending Unavailable FAWWAD, SAUNDERS Attending Unavailable FAWWAD, SAUNDERS Attending Unavailable FAWWAD, SAUNDERS Attending Unavailable ROSHNI LEDESMA Attending Unavailable FAWWAD, SAUNDERS Attending Unavailable FAWWAD, SAUNDERS Attending Unavailable FAWWAD, SAUNDERS Attending Unavailable FAWWAD, SAUNDERS Attending Unavailable FAWWAD, SAUNDERS Attending Unavailable FAWWAD, SAUNDERS Attending Unavailable AIDA BLANC Attending UnavailAIDA Negron Attending Unavailabl e OMBALLI, MOHAMED Referring Unavailable OMBALLI, MOHAMED Admitting Unavailable OMBALLI, MOHAMED Attending Unavailable OMBALLI, MOHAMED Referring Unavailable RADHA, GHULAM Referring Unavailable ELTAHAWY, EHAB Attending Unavailable OMBALLI, MOHAMED Attending Unavailable SAMSA, BO Referring Unavailable OMBALLI, MOHAMED Attending Unavailable Giedraitis MD, Andrius Vytautas Attending [...] Translations: [fentanyl] Drug Allergy 07-07-20 17 Hallucinating [facility] (1 source) linezolid; Translations: [LINEZOLID] Drug Allergy 03-17-20 20 [facility] (20 sources) Vancomycin; Translations: [VANCOMYCIN] Drug Allergy 03-17-20 20 Unknown, Unknown Reaction [facility] (12 sources) DENIES METAL SENSITITIVITY Propensity to adverse reactions 03-14-20 24 Unknown, Unknown Reaction [facility] Medications Current Medications Medication Drug Class(es) Dates Sig (Normalized) Sig (Original) 30 ACTUAT fluticasone furoate 0.2 MG/ACTUAT / umeclidinium 0.0625 MG/ACTUAT / vilanterol 0.025 MG/ACTUAT Dry Powder Inhaler [Trelegy] (2 sources) take 1 puff(s) by inhalation once daily Trelegy Ellipta 200-62.5-25 MCG/INH 1 puff Inhalation Once a day Active [id number] 200 actuat albuterol 0.09 mg/actuat metered dose [...] 14, 2024 12:00am Start: 12-08-2022 End: 03-14-2024 Ilmfnwlbrrp-Ydevsugkc-Xvgadr er (Trelegy Ellipta) 200-62.5-25 mcg blister with [...] 12:00am Start: 08-09-2022 take 1 tablet by bessieuc [facility] every twenty-four hours Magnesium Oxide 400 MG 1 tablet with food Orally Once a day for 90 days Aug, Active montelukast 10 mg oral tablet (12 sources) Leukotriene Receptor Antagonist Start: 03-14-2024 take 1 tablet by mouth once daily Montelukast (Singulair) 10 mg tablet Active 10 MG PO Daily March 14, 2024 12:00am take 1 tablet by [facility] every twenty-four hours Singulair 10 MG 1 [...] 14, 2024 10:41am take 1 capsule by [facility] every twelve hours Omeprazole 20 MG 1 CAPSULE Orally TWICE A DAY Active take 1 capsule by [facility] once daily Omeprazole 20 MG 1 [...] 14, 2024 12:00am take 1 tablet by bessei every twenty-four hours Pramipexole Dihydrochloride 0.25 MG [...] 1 puff(s) by inhalation twice daily Ipratropium [place] (Atrovent Hfa) 17 mcg/actuation Hfa Aerosol Inhaler [...] Name Value Interpretation Reference Range Facility Telemedicine 07-11-2024 Telemedicine [id number] Nell Champion 1955 F Date Provider Department Center 07/11/2024 EMELIA MORALES ONC DCC Family History Problem Relation Age of Onset Heart failure Mother Heart disease Father Family Status - Relation Status Age at Mother Father Level of Service:64481 [place] PHYS/QHP TELEPHONE EVALUATION 21-30 MIN () Reason for Visit and Comments: Telehealth Phone Visit [502] - Tracheobronchomalacia follow up per Dr Canseco. nw [facility] HPon 07-02-2024 H&P reviewed. The veda jordan was examined and there are no changes to the H&P. Plan to proceed with bronchoscopy and BAL today. Consent obtained. GENERAL: alert and oriented x3, well developed, in no acute distress. HEAD: atraumatic, normocephalic. NECK: trachea midline CARDIAC: S1, S2 present. RRR. No murmur RESPIRATORY: CTAB, no increased effort of breathing, no rales, rhonchi, or wheezing. ABDOMEN: soft, nontender, nondistended. EXTREMITIES: no lower extremity edema, peripheral pulses are 2+ bilaterally. No rash/skin discoloration present. NEURO: no gross focal deficit PSYCH: appropriate mood, affect, and judgement. [facility] NURSNOTEon 07-02-2024 NURSNOTE Follow up at [facility] with Matthew Vargas May resume a Regular Diet and home medications. Normal [facility] NURSNOTE Bronchoscopy Finding s: Tracheobronchomalacia [facility] Telephoneon 06-27-2024 Telephone [id number] Nell Champion 1955 Date Provider Department Center 06/27/2024 Vitor0-SOURAV ESCOBAR ONC DCC Family History Problem Relation Age of Onset Heart failure Mother Heart disease Father Family Status - Relation Status Age at Mother Father [facility] Prep for Procedureon 024 Prep for Procedure [id number] Nell Champion 1955 Date Provider Department Center 06/26/2024 383-EMELIA YOO [facility] PREOP [facility] Medical C Family History Problem Relation Age of Onset Heart failure Mother Heart disease Father Family Status - Relation Status Age at Mother Father Normal [facility] HPon 06-25-2024 HP ----- ----- Attestation signed by Emelia Yoo MD at [...] be an additional personal documentation from me. ----- Pulmonary Telemedicine Visit Note Patient: Diana Champion Age: 68 y.o. : 1955 Account No.: [id number] Referring physician: Dr. Bo Mcclain Chief complaint: Recurreny pneumonia HPI Diana Champion is a 68 y.o. female with PMHx of reportedly COPD, chronic hypoxic respiratory failure on 2L home O2 who is presenting to clinic as a new patient after being referred by Dr. Bo Baker of [facility]. 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 Her family history is positive for COPD [...] Past Medical History: Diagnosis Date Asthma Cancer ([facility]) COPD (chronic obstructive pulmonary disease) ([facility]) Coronary artery disease GERD (gastroesophageal reflux [...] mouth every other day. Yes Historical Provider, oavraenihub-loepsjziq-qjf anter 100-62.5-25 mcg blister with device Yes Historical [...] mEq ER ta (more content not included)... 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 CT DONE 04-11-24 AND 06-07-24 AT [facility]. RECORDS SCANNED INTO MEDIA. FILMS REQUESTED- requested 3 times and [employer] IS DOWN. Could not get films. Normal [facility] Office Visiton 05-13-2024 Follow-up visit [id number] Nell Champion 1955 F Date Provider Department Center 05/13/2024 271-HETAL SCALES [facility] Family History Problem Relation Age of Onset Heart failure Mother Heart disease Father Family Status - Relation Status Age at Mother Father Level of Service:63468 [place] OFFICE/OUTPATIENT ESTABLISHED MOD MDM 30 MIN Normal [facility] Erythrocyte distribution wid th Auto (RBC) [Ratio]on 03-06-2024 Erythrocyte distribution width (RBC) [Ratio] 13.2 % 11.0-15.0 [facility] Estimated glomerular filtrat ion rate (GFR) non- Americanon 03-06-2024 GFR/1.73 sq M.predicted among non-blacks MDRD (S/P/Bld) [Vol rate/Area] 57 mL/min/{1.73_m2} >=60 [facility] Hematocrit Auto (Bld) [Volum e fraction]on 03-06-2024 Hematocrit (Bld) [Volume fraction] 38.7 % 36.0-48.0 [facility] Hemoglobin [Mass/volume] in Bloodon 03-06-2024 Hemoglobin (Bld) [Mass/Vol] 12.2 g/dL 12.0-16.0 [facility] Laboratory - Chemistry and C hemistry - challengeon 03-06-2024 Albumin [Mass/Vol] 3.0 g/dL 3.4-5.0 [facility] Calcium [Mass/Vol] 8.8 mg/dL 8.5-10.1 [facility] Chloride [Moles/Vol] 104 mmol/L 98-107 [facility] CO2 [Moles/Vol] 32.2 mmol/L 21.0-32.0 [facility] Creatinine [Mass/Vol] 0.97 mg/dL 0.55-1.02 [facility] GFR/1.73 sq M.predicted MDRD (S/P/Bld) [Vol rate/Area] mL/min/{1.73_m2} >=60 [facility] Glucose [Mass/Vol] 67 mg/dL 74-106 [facility] Magnesium [Mass/Vol] 1.9 mg/dL 1.8-2.4 [facility] Potassium [Moles/Vol] 3.4 mmol/L 3.5-5.1 [facility] Sodium [Moles/Vol] 143 mmol/L 136-145 [facility] Urate [Mass/Vol] 5.0 mg/dL 2.6-6.0 [facility] Urea nitrogen [Mass/Vol] 16.0 mg/dL 7.0-18.0 [facility] Urea nitrogen/Creatinine [Mass ratio] 16.5 mg/mg [facility] Leukocytes [#/volume] correc melanie for nucleated erythrocytes in Blood by Automated counon 03-06-2024 WBC corrected for nucl RBC Auto (Bld) [#/Vol] 8.1 10 3/uL 4.0-11.0 [facility] MCH Auto (RBC) [Entitic mass ]on 03-06-2024 MCH (RBC) [Entitic mass] 30.4 pg 26.7-34.0 [facility] MCHC Auto (RBC) [Mass/Vol]on 03-06-2024 MCHC (RBC) [Mass/Vol] 31.5 g/dL 29.9-35.2 [facility] MCV Auto (RBC) [Entitic vol] on 03-06-2024 MCV (RBC) [Entitic vol] 96.5 fL 81.0-99.0 [facility] No Panel Informationon 03-06 Urine Random Creatinine 63.27 mg/dL 20.00-300.00 [facility] Urine Random Total Protein <6.0 mg/dL <=11.9 [facility] 25-Hydroxy Vitamin D Total 37.1 ng/mL [facility] Comment on above: <20 ng/mL Vit D defi cient20-<30 ng/mL Vit D vvxxobghabro93-846 ng/mL Vit D sufficient>100 ng/mL Potential Toxicity Parathyroid Hormone (Intact) 36 pg/mL 15-65 [facility] Comment on above: Performed at: [address] [id number] Director: Raphael Marrero PhD, Phone: [phone] Phosphorus Level 3.2 mg/dL 2.6-4.7 [facility] Platelet mean volume Auto (B ld) [Entitic vol]on 03-06-2024 Platelet mean volume (Bld) [Entitic vol] 9.1 fL 9.5-13.5 [facility] Platelets Auto (Bld) [#/Vol] on 03-06-2024 Platelets (Bld) [#/Vol] 247 10 3/uL 150-450 [facility] RBC Auto (Bld) [#/Vol]on RBC (Bld) [#/Vol] 4.01 10 6/uL 4.20-5.40 [facility] Serum or plasma anion gap de terminationon 03-06-2024 Anion gap [Moles/Vol] 10.2 mmol/L [facility] SYMPTOMATIC COVID-19 ANTIGEN on 04-04-2023 EUA Statement SEE BELOW Normal [facility] Comment on [...] sooner. Performed By: #### C VDAGS #### [facility] [address] [place] [address] Dr. Shayne Roldan SARS-CoV-2 (COVID-19) RNA KAYLEE+probe Ql (Unsp spec) Positive Abnormal NEGATIVE [facility] Comment on above: Performed By: #### C VDAGS #### [facility] [address] [place] [address] Dr. Shayne Roldan XR LSPINE 2_3 VIEWSon [...] STEPH GRANADOS Date: 2023-03-24 12:52 Normal [facility] PTH INTACTon 02-27-2023 PTH, Intact 87 pg/mL Critically high 15-65 [facility] Comment on above: Performed By: #### P THINT #### [facility] [address] [place] [address] Dr. Shayne Roldan HEMOGRAM AND PLATELon 2022 Hematocrit (Bld) [Volume fraction] 44.4 % Normal 36.0-48.0 [facility] Comment on above: Performed By: #### H H #### [facility] [address] [place] [address] Dr. Shayne Roldan Hemoglobin (Bld) [Mass/Vol] 14.5 g/dL Normal 12.0-16.0 [facility] Comment on above: Performed By: #### H H #### [facility] [address] [place] [address] Dr. Shayne Roldan MCH (RBC) [Entitic mass] 30.3 pg Normal 26.7-34.0 [facility] Comment on above: Performed By: #### H H #### [facility] [address] [place] [address] Dr. Shayne Roldan MCHC (RBC) [Mass/Vol] 32.7 g/dL Normal 29.9-35.2 [facility] Comment on above: Performed By: #### H H #### [facility] [address] [place] [address] Dr. Shayne Roldan MCV (RBC) [Entitic vol] 92.9 fL Normal 81.0-99.0 [facility] Comment on above: Performed By: #### H H #### [facility] [address] [place] [address] Dr. Shayne Roldan PLT 367 103/ul Normal 150-450 [facility] Comment on above: Performed By: #### H H #### [facility] [address] [address] [address] Shayne Roldan RBC 4.78 106/ul Normal 4.20-5.40 [facility] Comment on above: Performed By: #### H H #### [facility] [address] [address] [address] Shayne Roldan WBC 9.9 103/ul Normal 4.0-11.0 [facility] Comment on above: Performed By: #### H H #### [facility] [address] [address] [address] Shayne Roldan MAGNESIUMon 02-25-2023 Magnesium [Mass/Vol] 1.6 mg/dL Critically low 1.8-2.4 [facility] Comment on above: Performed By: #### M G, RENAL, URIC #### [facility] [address] [place] [address] Dr. Shayne Roldan RENAL FUNCTION PANELon 02-25 Albumin [Mass/Vol] 3.4 g/dL Normal 3.4-5.0 [facility] Comment on above: Performed By: #### M G, RENAL, URIC #### [facility] [address] [place] [address] Dr. Shayne Roldan Calcium [Mass/Vol] 8.7 mg/dL Normal 8.5-10.1 [facility] Comment on above: Performed By: #### M G, RENAL, URIC #### [facility] [address] [place] [address] Dr. Shayne Roldan Chloride [Moles/Vol] 104 mmol/L Normal 98-107 [facility] Comment on above: Performed By: #### M G, RENAL, URIC #### [facility] [address] [address] [address] Shayne Roldan CO2 [Moles/Vol] 25.9 mmol/L Normal 21.0-32.0 [facility] Comment on above: Performed By: #### M G, RENAL, URIC #### [facility] [address] [address] [address] Shayne Roldan Creatinine [Mass/Vol] 1.19 mg/dL Critically high 0.55-1.02 [facility] Comment on above: Performed By: #### M G, RENAL, URIC #### [facility] [address] [address] [address] Shayne Roldan EGFR-AF SOMALI 55 mL/min/1.73m2 Critically low >=60 [facility] Comment on above: Performed By: #### M G, RENAL, URIC #### [facility] [address] [address] [address] Shayne Roldan EGFR-NON AF SOMALI 45 mL/min/1.73m2 Critically low >=60 [facility] Comment on above: Performed By: #### M G, RENAL, URIC #### [facility] [address] [place] [address] Dr. Shayne Roldan Glucose [Mass/Vol] 193 mg/dL Critically high 74-106 [facility] Comment on above: Performed By: #### M G, RENAL, URIC #### [facility] [address] [place] [address] Dr. Shayne Roldan Phosphate [Mass/Vol] 3.2 mg/dL Normal 2.6-4.7 [facility] Comment on above: Performed By: #### M G, RENAL, URIC #### [facility] [address] [place] [address] Dr. Shayne Roldan Potassium [Moles/Vol] 3.9 mmol/L Normal 3.5-5.1 [facility] Comment on above: Performed By: #### M G, RENAL, URIC #### [facility] [address] [place] [address] Dr. Shayne Roldan Sodium [Moles/Vol] 140 mmol/L Normal 136-145 [facility] Comment on above: Performed By: #### M G, RENAL, URIC #### [facility] [address] [place] [address] Dr. Shayne Roldan Urea nitrogen [Mass/Vol] 17.0 mg/dL Normal 7.0-18.0 [facility] Comment on above: Performed By: #### M G, RENAL, URIC #### [facility] [address] [place] [address] Dr. Shayne Roldan UA RANDOM W/MICROSCOPICon BACTERIA TRACE Abnormal NONE SEEN [facility] Comment on above: Performed By: #### M G, RENAL, URIC #### [facility] [address] [address] [address] Shayne Roldan Bilirubin Ql (U) Negative Normal NEGATIVE [facility] Comment on above: Performed By: #### M G, RENAL, URIC #### [facility] [address] [address] [address] Shayne Roldan CAST NONE SEEN Normal NONE SEEN [facility] Comment on above: Performed By: #### M G, RENAL, URIC #### [facility] [address] [place] [address] Dr. Shayne Roldan Clarity (U) CLEAR Normal CLEAR [facility] Comment on above: Performed By: #### M G, RENAL, URIC #### [facility] [address] [place] [address] Dr. Shayne Roldan Color (U) LT. YELLOW Normal YELLOW [facility] Comment on above: Performed By: #### M G, RENAL, URIC #### [facility] [address] [address] [address] Shayne Roldan Crystals LM Nom (Urine sed) NONE SEEN Normal NONE SEEN [facility] Comment on above: Performed By: #### M G, RENAL, URIC #### [facility] [address] [place] [address] Dr. Shayne Roldan Epithelial cells LM Ql (Urine sed) RARE Normal NONE SEEN /RARE [facility] Comment on above: Performed By: #### M G, RENAL, URIC #### [facility] [address] [place] [address] Dr. Shayne Roldan Glucose Ql (U) Negative Normal NEGATIVE [facility] Comment on above: Performed By: #### M G, RENAL, URIC #### [facility] [address] [address] [address] Shayne Roldan Hemoglobin Ql (U) Negative Normal NEGATIVE [facility] Comment on above: Performed By: #### M G, RENAL, URIC #### [facility] [address] [address] [address] Shayne Roldan Ketones Ql (U) Negative Normal NEGATIVE [facility] Comment on above: Performed By: #### M G, RENAL, URIC #### [facility] [address] [address] [address] Shayne Roldan LEUKOCYTES Negative Normal NEGATIVE [facility] Comment on above: Performed By: #### M G, RENAL, URIC #### [facility] [address] [address] [address] Shayne Roldan MUCOUS NONE SEEN Normal NONE SEEN [facility] Comment on above: Performed By: #### M G, RENAL, URIC #### [facility] [address] [address] [address] Shayne Roldan Nitrite Ql (U) Negative Normal NEGATIVE [facility] Comment on above: Performed By: #### M G, RENAL, URIC #### [facility] [address] [place] [address] Dr. Shayne Roldan pH (U) 5.0 [pH] Normal 5-9 [facility] Comment on above: Performed By: #### M G, RENAL, URIC #### [facility] [address] [place] [address] Dr. Shayne Roldan RBC 0-2 Normal 0-2 [facility] Comment on above: Performed By: #### M G, RENAL, URIC #### [facility] [address] [address] [address] Shayne Roldan SPEC GRAVITY 1.025 Normal 1.005-<=1.02 5 [facility] Comment on above: Performed By: #### M G, RENAL, URIC #### [facility] [address] [address] [address] Shayne Roldan UA PROTEIN Negative Normal NEGATIVE/ TRACE [facility] Comment on above: Performed By: #### M G, RENAL, URIC #### [facility] [address] [place] [address] Dr. Shayne Roldan Urobilinogen Qn (U) 0.2 {Rogelio'U}/dL Normal 0.2 - 1. 0 [facility] Comment on above: Performed By: #### M G, RENAL, URIC #### [facility] [address] [address] [address] Shayne Roldan WBC 0-2 Abnormal NONE SEEN [facility] Comment on above: Performed By: #### M G, RENAL, URIC #### [facility] [address] [place] [address] Dr. Shayne Roldan URIC ACID SERUMon 02-25-2023 Urate [Mass/Vol] 6.1 mg/dL Critically high 2.6-6.0 [facility] Comment on above: Performed By: #### M G, RENAL, URIC #### [facility] [address] [place] [address] Dr. Shayne Roldan URINE T PROTEIN CREAT RATIOo n 02-25-2023 Protein (U) [Mass/Vol] 13.0 mg/dL Critically high <=12.0 [facility] Comment on above: Performed By: #### M G, RENAL, URIC #### [facility] [address] [place] [address] Dr. Shayne Roldan UR PROT CREAT RAT 0.16 Normal [facility] Comment on above: Performed By: #### M G, RENAL, URIC #### [facility] [address] [place] [address] Dr. Shayne Roldan URINE CREAT 83.60 mg/dL Normal 20.00-300.00 [facility] Comment on above: Performed By: #### M G, RENAL, URIC #### [facility] [address] [place] [address] Dr. Shayne Roldan VITAMIN D 25 OHon 02-25-2023 VIT D 25-OH 41.6 ng/mL Normal [facility] Comment on above: Performed By: #### M G, RENAL, URIC #### [facility] [address] [place] [address] Dr. Shayne Roldan VIT D RANGES SEE BELOW Normal [facility] Comment on above: Result Comment: <20 ng/mL Vit D deficient 20 - <30 ng/mL Vit D insufficient 30 - 100 ng/mL Vit D sufficient >100 ng/mL Potential Toxicity Performed By: #### M G, RENAL, URIC #### [facility] [id number] Shayne Roldan XR CHEST 2 Von [...] by: BRITTANY GALDAMEZ Date: 2023-02-22 16:15 Normal [facility] MAMM SCREEN 3D PRATEEK CADon 12-15-2022 MAMM SCREEN 3D PRATEEK CAD Patient: DIANA CHAMPION Exam Date: 12/15/2022 : 1955 Gender:F Ordering : DR JACK HALL . Admission #: [id number] Family : Order #: [id number] CLICK HERE TO VIEW EXAM RADIOLOGY REPORT PROCEDURE: MAMMOGRAM SCREENING 3D BILATERAL CAD COMPARISON: MAMM SCREEN 3D PRATEEK CAD, 11/26/2021. INDICATIONS: Calculator Name NCI Breast Cancer Risk Assessment Tool 5 Year Breast Cancer Risk 1.20% Lifetime Breast Cancer Risk 4.40% Personal Breast Cancer No Personal Ovarian Cancer No Treatments Excision, radiation, chemotherapy Family Cancers None LOCATION: [facility] BREAST COMPOSITION: Almost entirely fatty. FINDINGS: [...] Walters MD on 12/15/2022 at 10:51 Normal [facility] XR DEXA BONE DENSITYon 12-15 XR DEXA BONE DENSITY EXAMINATION: XR DEXA BONE DENSITY, 12/15/2022 9:10 AM EST HISTORY: [...] by: STEPH GRANADOS Date: 2022-12-15 09:50 Normal [facility] 12-08-2022 L ----- Specimen: [id number] Received: 12/08/22 Status: CELIA Elzia Num: [id number] Spec Type: Surgical Subm Dr: Gato Loco MD Tissues: A Colon Biopsy (DESC COL POLYP) Procedures: HE/Evonne, Gross/Micro L4 Age/ Patient Sex Location Account Attending Physician ChampionDiana 67/F [id number] Gato Loco MD SPEC NUM: [id number] RECD: 12/08/22 STATUS: CELIA KAY NUM: [id number] KENDRA: 12/08/[address] [facility] [address]: Gato Loco MD ENTERED: 12/08/[address]: KHRIS TYPE: Surgical DEPT: S ENTERED BY: [id number] RECV BY: [id number] ORDERED: HE/2, Gross/Micro L4 ORDERED: HE/2, Gross/Micro [...] support the above pathologic diagnosis. CPT Codes 46999 Specimen: [id number] Received: 12/08/22 Status: CELIA Kay Num: [id number] Spec Type: Surgical Subm Dr: Gato Loco MD Tissues: A Colon Biopsy (DESC COL POLYP) Procedures: HE/2, Gross/Micro L4 Patient: Diana Champion [id number] (Continued) Signed (signature on file) Eunice Rosa MD 12/09/22 1053 [facility] PAP ACOG PANEL 2: 30 to 65on 11-16-2022 . . Normal [facility] Comment on above: Performed By: #### [id number] #### [facility] [address] [place] [address] Dr. Shayne Roldan Age Gdln ACOG Testing Comment [facility] Comment on above: Result Comment: <21 or >65 or no age provided Performed By: #### [id number] #### [facility] [address] [address] [address] Shayne Roldan DIAGNOSIS: Comment [facility] Comment on above: Result Comment: NEGA TIVE FOR INTRAEPITHELIAL LESION OR MALIGNANCY. Performed By: #### [id number] #### [facility] [address] [place] [address] Dr. Shayne Roldan Methodology: Comment Normal [facility] Comment on above: Result Comment: This liquid based ThinPrep(R) pap test was screened with the use of an image guided system. Performed By: #### [id number] #### [facility] [address] [place] [address] Dr. Shayne Roldan Note: Comment Normal [facility] Comment on above: Result Comment: The Pap smear is a screening test designed to aid in the detection of premalignant and malignant conditions of the uterine cervix. It is not a diagnostic procedure and should not be used as the sole means of detecting cervical cancer. Both false-positive and false-negative reports do occur. . Performed By: #### [id number] #### [facility] [address] [place] [address] Dr. Shayne Roldan Performed by: Comment Normal [facility] Comment on above: Result Comment: Onur Aguilar [employer] (ASCP) Performed By: #### [id number] #### [facility] [address] [place] [address] Dr. Shayne Roldan Specimen adequacy: Comment Normal [facility] Comment on above: Result Comment: Sati sfactory for evaluation. Endocervical and/or squamous metaplastic cells (endocervical component) are present. Performed By: #### [id number] #### [facility] [address] [place] [address] Dr. Shayne Roldan RENAL FUNCTION PANELon 08-19 Albumin [Mass/Vol] 3.4 g/dL Normal 3.4-5.0 [facility] Comment on above: Performed By: #### M G, RENAL, URIC #### [facility] [address] [place] [address] Dr. Shayne Roldan Calcium [Mass/Vol] 8.4 mg/dL Critically low 8.5-10.1 [facility] Comment on above: Performed By: #### M G, RENAL, URIC #### [facility] [address] [address] [address] Shayne Roldan Chloride [Moles/Vol] 103 mmol/L Normal 98-107 [facility] Comment on above: Performed By: #### M G, RENAL, URIC #### [facility] [address] [address] [address] Shayne Roldan CO2 [Moles/Vol] 27.8 mmol/L Normal 21.0-32.0 [facility] Comment on above: Performed By: #### M G, RENAL, URIC #### [facility] [address] [address] [address] Shayne Roldan Creatinine [Mass/Vol] 1.02 mg/dL Normal 0.55-1.02 [facility] Comment on above: Performed By: #### M G, RENAL, URIC #### [facility] [address] [address] [address] Shayne Roldan EGFR-AF SOMALI >60 Normal >=60 [facility] Comment on above: Performed By: #### M G, RENAL, URIC #### [facility] [address] [address] [address] Shayne Roldan EGFR-NON AF SOMALI 54 mL/min/1.73m2 Critically low >=60 [facility] Comment on above: Performed By: #### M G, RENAL, URIC #### [facility] [address] [address] [address] Shayne Roldan Glucose [Mass/Vol] 110 mg/dL Critically high 74-106 [facility] Comment on above: Performed By: #### M G, RENAL, URIC #### [facility] [address] [address] [address] Shayne Roldan Phosphate [Mass/Vol] 2.3 mg/dL Critically low 2.6-4.7 [facility] Comment on above: Performed By: #### M G, RENAL, URIC #### [facility] [address] [address] [address] Shayne Roldan Potassium [Moles/Vol] 3.2 mmol/L Critically low 3.5-5.1 [facility] Comment on above: Performed By: #### M G, RENAL, URIC #### [facility] [address] [place] [address] Dr. Shayne Roldan Sodium [Moles/Vol] 138 mmol/L Normal 136-145 [facility] Comment on above: Performed By: #### M G, RENAL, URIC #### [facility] [address] [place] [address] Dr. Shayne Roldan Urea nitrogen [Mass/Vol] 14.0 mg/dL Normal 7.0-18.0 [facility] Comment on above: Performed By: #### M G, RENAL, URIC #### [facility] [address] [place] [address] Dr. Shayne Roldan PTH INTACTon 08-06-2022 PTH, Intact 40 pg/mL Normal 15-65 [facility] Comment on above: Performed By: #### M G, RENAL, URIC #### [facility] [address] [place] [address] Dr. Shayne Roldan HEMOGRAM AND PLATELon 2021 Hematocrit (Bld) [Volume fraction] 39.8 % Normal 36.0-48.0 [facility] Comment on above: Performed By: #### M G, RENAL, URIC #### [facility] [address] [place] [address] Dr. Shayne Roldan Hemoglobin (Bld) [Mass/Vol] 13.4 g/dL Normal 12.0-16.0 [facility] Comment on above: Performed By: #### M G, RENAL, URIC #### [facility] [address] [place] [address] Dr. Shayne Roldan MCH (RBC) [Entitic mass] 30.5 pg Normal 26.7-34.0 [facility] Comment on above: Performed By: #### M G, RENAL, URIC #### [facility] [address] [place] [address] Dr. Shayne Roldan MCHC (RBC) [Mass/Vol] 33.7 g/dL Normal 29.9-35.2 [facility] Comment on above: Performed By: #### M G, RENAL, URIC #### [facility] [address] [address] [address] Shayne Roldan MCV (RBC) [Entitic vol] 90.5 fL Normal 81.0-99.0 [facility] Comment on above: Performed By: #### M G, RENAL, URIC #### [facility] [address] [address] [address] Shayne Roldan PLT 299 103/ul Normal 150-450 [facility] Comment on above: Performed By: #### M G, RENAL, URIC #### [facility] [address] [address] [address] Shayne Roldan RBC 4.40 106/ul Normal 4.20-5.40 [facility] Comment on above: Performed By: #### M G, RENAL, URIC #### [facility] [address] [place] [address] Dr. Shayne Roldan WBC 8.8 103/ul Normal 4.0-11.0 [facility] Comment on above: Performed By: #### M G, RENAL, URIC #### [facility] [address] [place] [address] Dr. Shayne Roldan MAGNESIUMon 08-05-2022 Magnesium [Mass/Vol] 1.5 mg/dL Critically low 1.8-2.4 [facility] Comment on above: Performed By: #### M G, RENAL, URIC #### [facility] [address] [address] [address] Shayne Roldan RENAL FUNCTION PANELon 08-05 Albumin [Mass/Vol] 3.5 g/dL Normal 3.4-5.0 [facility] Comment on above: Performed By: #### M G, RENAL, URIC #### [facility] [address] [address] [address] Shayne Roldan Calcium [Mass/Vol] 8.4 mg/dL Critically low 8.5-10.1 [facility] Comment on above: Performed By: #### M G, RENAL, URIC #### [facility] [address] [address] [address] Shayne Roldan Chloride [Moles/Vol] 101 mmol/L Normal 98-107 [facility] Comment on above: Performed By: #### M G, RENAL, URIC #### [facility] [address] [address] [address] Shayne Roldan CO2 [Moles/Vol] 29.5 mmol/L Normal 21.0-32.0 [facility] Comment on above: Performed By: #### M G, RENAL, URIC #### [facility] [address] [address] [address] Shayne Roldan Creatinine [Mass/Vol] 1.04 mg/dL Critically high 0.55-1.02 [facility] Comment on above: Performed By: #### M G, RENAL, URIC #### [facility] [address] [place] [address] Dr. Shayne Roldan EGFR-AF SOMALI >60 Normal >=60 [facility] Comment on above: Performed By: #### M G, RENAL, URIC #### [facility] [address] [place] [address] Dr. Shayne Roldan EGFR-NON AF SOMALI 53 mL/min/1.73m2 Critically low >=60 [facility] Comment on above: Performed By: #### M G, RENAL, URIC #### [facility] [address] [place] [address] Dr. Shayne Roldan Glucose [Mass/Vol] 92 mg/dL Normal 74-106 [facility] Comment on above: Performed By: #### M G, RENAL, URIC #### [facility] [address] [address] [address] Shayne Roldan Phosphate [Mass/Vol] 2.4 mg/dL Critically low 2.6-4.7 [facility] Comment on above: Performed By: #### M G, RENAL, URIC #### [facility] [address] [place] [address] Dr. Shayne Roldan Potassium [Moles/Vol] 2.8 mmol/L Critically low 3.5-5.1 [facility] Comment on above: Performed By: #### M G, RENAL, URIC #### [facility] [address] [place] [address] Dr. Shayne Roldan Sodium [Moles/Vol] 137 mmol/L Normal 136-145 [facility] Comment on above: Performed By: #### M G, RENAL, URIC #### [facility] [address] [place] [address] Dr. Shayne Roldan Urea nitrogen [Mass/Vol] 10.0 mg/dL Normal 7.0-18.0 [facility] Comment on above: Performed By: #### M G, RENAL, URIC #### [facility] [address] [place] [address] Dr. Shayne Roldan UA RANDOM W/MICROSCOPICon BACTERIA SMALL Abnormal NONE SEEN [facility] Comment on above: Performed By: #### U AMIC #### [facility] [address] [place] [address] Dr. Shayne Roldan Bilirubin Ql (U) Negative Normal NEGATIVE [facility] Comment on above: Performed By: #### U AMIC #### [facility] [address] [place] [address] Dr. Shayne Roldan CAST NONE SEEN Normal NONE SEEN [facility] Comment on above: Performed By: #### U AMIC #### [facility] [address] [place] [address] Dr. Shayne Roldan Clarity (U) CLEAR Normal CLEAR [facility] Comment on above: Performed By: #### U AMIC #### [facility] [address] [place] [address] Dr. Shayne Roldan Color (U) LT. YELLOW Normal YELLOW [facility] Comment on above: Performed By: #### U AMIC #### [facility] [address] [place] [address] Dr. Shayne Roldan Crystals LM Nom (Urine sed) NONE SEEN Normal NONE SEEN [facility] Comment on above: Performed By: #### U AMIC #### [facility] [address] [place] [address] Dr. Shayne Roldan Epithelial cells LM Ql (Urine sed) FEW Abnormal NONE SEEN /RARE [facility] Comment on above: Performed By: #### U AMIC #### [facility] [address] [address] [address] Shayne Roldan Glucose Ql (U) Negative Normal NEGATIVE [facility] Comment on above: Performed By: #### U AMIC #### [facility] [address] [address] [address] Shayne Roldan Hemoglobin Ql (U) Negative Normal NEGATIVE [facility] Comment on above: Performed By: #### U AMIC #### [facility] [address] [address] [address] Shayne Roldan Ketones Ql (U) Negative Normal NEGATIVE [facility] Comment on above: Performed By: #### U AMIC #### [facility] [address] [address] [address] Shayne Roldan LEUKOCYTES TRACE Abnormal NEGATIVE [facility] Comment on above: Performed By: #### U AMIC #### [facility] [address] [address] [address] Shayne Roldan MUCOUS NONE SEEN Normal NONE SEEN [facility] Comment on above: Performed By: #### U AMIC #### [facility] [address] [address] [address] Shayne Roldan Nitrite Ql (U) Negative Normal NEGATIVE [facility] Comment on above: Performed By: #### U AMIC #### [facility] [address] [address] [address] Shayne Roldan pH (U) 6.0 [pH] Normal 5-9 [facility] Comment on above: Performed By: #### U AMIC #### [facility] [address] [address] [address] Shayne Roldan RBC NONE SEEN Abnormal 0-2 [facility] Comment on above: Performed By: #### U AMIC #### [facility] [address] [address] [address] Shayne Roldan SPEC GRAVITY <=1.005 Abnormal 1.005-<=1.02 5 [facility] Comment on above: Performed By: #### U AMIC #### [facility] [address] [address] [address] Shayne Roldan UA PROTEIN Negative Normal NEGATIVE/ TRACE [facility] Comment on above: Performed By: #### U AMIC #### [facility] [address] [place] [address] Dr. Shayne Roldan Urobilinogen Qn (U) 0.2 {Rogelio'U}/dL Normal 0.2 - 1. 0 [facility] Comment on above: Performed By: #### U AMIC #### [facility] [address] [place] [address] Dr. Shayne Roldan WBC 5-10 Abnormal NONE SEEN [facility] Comment on above: Performed By: #### U AMIC #### [facility] [address] [place] [address] Dr. Shayne Roldan URIC ACID SERUMon 08-05-2022 Urate [Mass/Vol] 6.5 mg/dL Critically high 2.6-6.0 [facility] Comment on above: Performed By: #### M G, RENAL, URIC #### [facility] [address] [place] [address] Dr. Shayne Roldan URINE T PROTEIN CREAT RATIOo n 08-05-2022 Protein (U) [Mass/Vol] 4.8 mg/dL Normal <=12.0 [facility] Comment on above: Performed By: #### U RTPCR #### [facility] [address] [place] [address] Dr. Shayne Roldan UR PROT CREAT RAT 0.09 Normal [facility] Comment on above: Performed By: #### U RTPCR #### [facility] [address] [place] [address] Dr. Shayne Roldan URINE CREAT 52.65 mg/dL Normal 20.00-300.[address] [facility] Comment on above: Performed By: #### U RTPCR #### [facility] [address] [place] [address] Dr. Shayne Roldan VITAMIN D 25 OHon 08-05-2022 VIT D 25-OH 38.9 ng/mL Normal [facility] Comment on above: Performed By: #### M G, RENAL, URIC #### [facility] [address] [address] [address] Shayne Roldan VIT D RANGES SEE BELOW Normal [facility] Comment on above: Result Comment: <20 ng/mL Vit D deficient 20 - <30 ng/mL Vit D insufficient 30 - 100 ng/mL Vit D sufficient >100 ng/mL Potential Toxicity Performed By: #### M G, RENAL, URIC #### [facility] [address] [address] [address] Shayne Roldan IMMUNOGLOBULINS IGA/IGM/IGG/ IGE QUANTITAon 07-12-2022 Immunoglobulin A, Qn, Serum 295 mg/dL Normal 87-352 [facility] Comment on above: Result Comment: Perf ormed at: CB Performed By: #### M G, RENAL, URIC #### [facility] [address] [place] [address] Dr. Shayne Roldan Immunoglobulin E, Total 32 IU/mL Normal 6-495 [facility] Comment on above: Result Comment: Perf ormed at: BN Performed By: #### M G, RENAL, URIC #### [facility] [address] [address] [address] Shayne Roldan Immunoglobulin G, Qn, Serum 729 mg/dL Normal 586-1602 [facility] Comment on above: Result Comment: Perf ormed at: CB Performed By: #### M G, RENAL, URIC #### [facility] [address] [place] [address] Dr. Shayne Roldan Immunoglobulin M, Qn, Serum 75 mg/dL Normal 26-217 [facility] Comment on above: Result Comment: Perf ormed at: CB Performed By: #### M G, RENAL, URIC #### [facility] [address] [address] [address] Shayne Roldan CBC AUTO DIFFon 07-05-2022 BASO # 0.1 103/ul Normal 0.0-0.1 [facility] Comment on above: Performed By: #### M G, RENAL, URIC #### [facility] [address] [address] [address] Shayne Roldan Basophils/100 WBC (Bld) 0.7 % Normal 0.2-2.0 [facility] Comment on above: Performed By: #### M G, RENAL, URIC #### [facility] [address] [place] [address] Dr. Shayne Roldan EO # 0.4 103/ul Normal 0.0-0.7 [facility] Comment on above: Performed By: #### M G, RENAL, URIC #### [facility] [address] [place] [address] Dr. Shayne Roldan Eosinophils/100 WBC (Bld) 4.4 % Normal 0.9-7.0 [facility] Comment on above: Performed By: #### M G, RENAL, URIC #### [facility] [address] [place] [address] Dr. Shayne Roldan Erythrocyte distribution width (RBC) [Ratio] 12.6 % Normal 11.0-15.0 [facility] Comment on above: Performed By: #### M G, RENAL, URIC #### [facility] [address] [place] [address] Dr. Shayne Roldan Hematocrit (Bld) [Volume fraction] 40.2 % Normal 36.0-48.0 [facility] Comment on above: Performed By: #### M G, RENAL, URIC #### [facility] [address] [place] [address] Dr. Shayne Roldan Hemoglobin (Bld) [Mass/Vol] 13.6 g/dL Normal 12.0-16.0 [facility] Comment on above: Performed By: #### M G, RENAL, URIC #### [facility] [address] [place] [address] Dr. Shayne Roldan IG # 0.07 10e3/ul Critically high 0.00-0.03 [facility] Comment on above: Performed By: #### M G, RENAL, URIC #### [facility] [address] [place] [address] Dr. Shayne Roldan IG % 0.8 % Critically high 0.0-0.5 [facility] Comment on above: Performed By: #### M G, RENAL, URIC #### [facility] [address] [address] [address] Shayne Roldan LYMPH # 2.3 103/ul Normal 1.2-3.8 [facility] Comment on above: Performed By: #### M G, RENAL, URIC #### [facility] [address] [address] [address] Shayne Roldan Lymphocytes/100 WBC (Bld) 24.7 % Normal 20.5-60.0 [facility] Comment on above: Performed By: #### M G, RENAL, URIC #### [facility] [address] [address] [address] Shayne Roldan MANUAL DIFF REQ NO Normal [facility] Comment on above: Performed By: #### M G, RENAL, URIC #### [facility] [address] [place] [address] Dr. Shayne Roldan MCH (RBC) [Entitic mass] 30.7 pg Normal 26.7-34.0 [facility] Comment on above: Performed By: #### M G, RENAL, URIC #### [facility] [address] [place] [address] Dr. Shayne Roldan MCHC (RBC) [Mass/Vol] 33.8 g/dL Normal 29.9-35.2 [facility] Comment on above: Performed By: #### M G, RENAL, URIC #### [facility] [address] [place] [address] Dr. Shayne Roldan MCV (RBC) [Entitic vol] 90.7 fL Normal 81.0-99.0 [facility] Comment on above: Performed By: #### M G, RENAL, URIC #### [facility] [address] [address] [address] Shayne Roldan MONO # 0.7 103/ul Normal 0.3-0.8 [facility] Comment on above: Performed By: #### M G, RENAL, URIC #### [facility] [address] [place] [address] Dr. Shayne Roldan Monocytes/100 WBC (Bld) 7.7 % Normal 1.7-12.0 [facility] Comment on above: Performed By: #### M G, RENAL, URIC #### [facility] [address] [address] [address] Shayne Roldan NEUT # 5.7 103/ul Normal 1.4-6.5 [facility] Comment on above: Performed By: #### M G, RENAL, URIC #### [facility] [address] [address] [address] Shayne Roldan Neutrophils/100 WBC (Bld) 61.7 % Normal 43.0-75.0 [facility] Comment on above: Performed By: #### M G, RENAL, URIC #### [facility] [address] [place] [address] Dr. Shayne Roldan Platelet mean volume (Bld) [Entitic vol] 8.8 fL Critically low 9.5-13.5 [facility] Comment on above: Performed By: #### M G, RENAL, URIC #### [facility] [address] [place] [address] Dr. Shayne Roldan PLT 279 103/ul Normal 150-450 [facility] Comment on above: Performed By: #### M G, RENAL, URIC #### [facility] [address] [place] [address] Dr. Shayne Roldan RBC 4.43 106/ul Normal 4.20-5.40 [facility] Comment on above: Performed By: #### M G, RENAL, URIC #### [facility] [address] [place] [address] Dr. Shayne Roldan WBC 9.1 103/ul Normal 4.0-11.0 [facility] Comment on above: Performed By: #### M G, RENAL, URIC #### [facility] [address] [place] [address] Dr. Shayne Roldan Covid-19 PCR ([facility]on SARS-CoV-2 (COVID-19) RNA KAYLEE+probe Ql (Unsp spec) Not detected Normal NOT DETECTED [facility] Comment on above: Result Comment: This test is not yet approved or cleared by the [place] FDA. When there are no FDA-approved or cleared tests available, and other criteria are met, FDA can make tests available under an emergency access mechanism called an Emergency Use Authorization (EUA). The EUA for this test is supported by the [place] of Health and Human Service's (HHS's) declaration [...] By: #### M G, RENAL, URIC #### [facility] [address] [address] [address] Shayne Roldan XR CHEST 2 Von [...] NARDA LONDONO Date: 2022-06-08 19:58 Normal [facility] Covid-19 PCR (CVDTB)on SARS-CoV-2 (COVID-19) RNA KAYLEE+probe Ql (Unsp spec) Not detected Normal NOT DETECTED [facility] Comment on above: Result Comment: This test is not yet approved or cleared by the [place] FDA. When there are no FDA-approved or cleared tests available, and other criteria are met, FDA can make tests available under an emergency access mechanism called an Emergency Use Authorization (EUA). The EUA for this test is supported by the [place] of Health and Human Service's (HHS's) declaration [...] consistent with SARS-CoV-2. Performed By: #### C [facility] #### [facility] [address] [address] [address] Shayne Roldan DEXA AXIALon 03-01-2022 DEXA AXIAL [facility] Department of Radiology [address] [place] [address] Patient Name: DIANA CHAMPION : 1955 Sex: F Age: Race: White Pt. Location: Patient Status: D Ordered Date: 02/24/2022 1:25:00 PM Completed Date: 03/01/2022 09:46 AM Requesting Provider: CINDA ANTONIO Attending Provider: Report Copy To: Signs & Symptoms: Z78.0 Asymptomatic menopausal state I10 History: [place] Comments: Exam: DEXA AXIAL DEXA AXIAL 03/01/2022 [...] characteristics. Electronically signed: Luzma Fernandez. Transcribed by: [email or web address], User Resident: Electronically Signed by: LUZMA FERNANDEZ @ 03/02/2022 01:07 PM Normal [facility] SCOLIOSIS 2 [facility] 02-24-2022 SCOLIOSIS 2 [facility] Department of Radiology [address] [place] [id number] Patient Name: DIANA CHAMPION : 1955 Sex: F Age: Race: White Pt. Location: Patient Status: D Ordered Date: 02/24/2022 1:25:00 PM Completed Date: 02/24/2022 01:44 PM Requesting Provider: CINDA ANTONIO Attending Provider: Report Copy To: Signs & Symptoms: M43.10 Spondylolisthesis, site unspecified I10 History: Comments: Views (X-RAY, SCOLIOSIS): PA, Lateral evaluate Exam: SCOLIOSIS 2 VWS Scoliosis. Worsening pain. Frontal and lateral thoracolumbar spine IMPRESSION: 1. Diffuse disc disease and facet arthritis. Right convex mid lumbar curvature measuring 16 degrees. Interbody fusion hardware lower lumbar spine. Electronically signed: Hugo Lynn. Transcribed by: [email or web address], User Resident: Electronically Signed by: HUGO LYNN @ 02/26/2022 11:07 AM Normal [facility] Comment on above: Order Comment: Views (X-RAY, SCOLIOSIS): PA, Lateral evaluate CT LUMBAR SPINE W CONTRASTon 01-24-2022 CT LUMBAR SPINE W CONTRAST [facility] Department of Radiology [address] [place] [id number] Patient Name: DIANA CHAMPION : 1955 [...] L1-2. Electronically signed: Gaurang Lawrence. Transcribed by: [email or web address], User Resident: Electronically Signed by: GAURANG LAWRENCE @ 01/26/2022 08:58 AM Normal [facility] Comment on above: Order Comment: , CT MYELOGRAM>PAPER WORK IN CHART LUMBAR MYELOGRAMon 2 LUMBAR MYELOGRAM [facility] Department of Radiology [address] [place] [id number] Patient Name: DIANA CHAMPION : 1955 Sex: F Age: Race: White Pt. Location: Patient Status: O Ordered Date: 01/09/2022 9:00:00 AM Completed Date: 01/24/2022 02:37 PM Requesting Provider: JOO BRAVO Attending Provider: JOO BRAVO Report Copy To: UNKNOWN, PHYSICIAN Signs & Symptoms: M54.16 Radiculopathy, lumbar region I10 History: Jessica Is patient on thinners? 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 Consent was obtained. Timeout: [place] protocol timeout verification performed. PROCEDURE: Estimated blood [...] report. Electronically signed: Greg Marlow. Transcribed by: [email or web address], User Resident: DEBBIE JI Electronically Signed by: GREG MARLOW @ 01/24/2022 04:07 PM I personally read this/these film(s) with this resident Normal [facility] Comment on above: Order Comment: , CT MYELOGRAM> PAPER WORK SCANNED IN CHART , CT MYELOGRAM> PAPER WORK SCANNED IN CHART , , , Ordering Provider - JOO BRAVO MD , HIP LEFT 1 OR 2 VWS WITH PEL VISon 01-06-2022 HIP LEFT 1 OR 2 VWS WITH PELVIS [facility] Department of Radiology [address] [place] [id number] Patient Name: DIANA CHAMPION : 1955 [...] hardware. Electronically signed: Joe Matthew. Transcribed by: [email or web address], User Resident: Electronically Signed by: JOE MATTHEW @ 01/09/2022 04:45 PM Normal [facility] Comment on above: Order Comment: Evalu ate Vital Signs Date Time Vital Sign Value Performing Clinician Facility 03-14-2024 10:30-0400 Body height 165.1 cm Steph Collier Work Phone: [facility] 03-14-2024 10:30-0400 Body mass index (BMI) [Ratio] 39 kg/m2 Steph Collier Work Phone: [facility] 03-14-2024 10:30-0400 Body temperature 97.4 [degF] Steph Collier Work Phone: [facility] 03-14-2024 10:30-0400 Body weight 106.36 kg Steph Collier Work Phone: [facility] 03-14-2024 10:30-0400 Diastolic blood pressure 80 mm[Hg] Steph Collier Work Phone: [facility] 03-14-2024 10:30-0400 Heart rate 77 /min Steph Collier Work Phone: [facility] 03-14-2024 10:30-0400 Inhaled oxygen flow rate 3 L/min Steph Collier Work Phone: [facility] 03-14-2024 10:30-0400 Respiratory rate 20 /min Steph Collier Work Phone: [facility] 03-14-2024 10:30-0400 SaO2% (BldA) [Mass fraction] 92 % Steph Collier Work Phone: [facility] 03-14-2024 10:30-0400 Systolic blood pressure 120 mm[Hg] Steph Collier Work Phone: [facility] 08-17-2023 09:20-0400 Body height 165.1 cm Herberth Joana Other [employer] Other 08-17-2023 09:20-0400 Body mass index (BMI) [Ratio] 38.1 kg/m2 Herberth Joana Other [employer] Other 08-17-2023 09:20-0400 Body temperature 98.8 [degF] Herberth Joana Other [employer] Other 08-17-2023 09:20-0400 Body weight 103.87 kg Herberth Joana Other [employer] Other 08-17-2023 09:20-0400 Diastolic blood pressure 85 mm[Hg] Herberth Joana Other [employer] Other 08-17-2023 09:20-0400 Respiratory rate 18 /min Herebrth Joana Other [employer] Other 08-17-2023 09:20-0400 SaO2% (BldA) [Mass fraction] 94 % Herberth Joana Other [employer] Other 08-17-2023 09:20-0400 Systolic blood pressure 151 mm[Hg] Herberth Joana Other [employer] Other 03-02-2023 10:00-0400 Body height 165.1 cm Herberth Joana Other [employer] Other 03-02-2023 10:00-0400 Body mass index (BMI) [Ratio] 37.29 kg/m2 Herberth Joana Other [employer] Other 03-02-2023 10:00-0400 Body temperature 98.9 [degF] Herberth Joana Other [employer] Other 03-02-2023 10:00-0400 Body weight 101.65 kg Herberth Joana Other [employer] Other 03-02-2023 10:00-0400 Diastolic blood pressure 76 mm[Hg] Herberth Joana Other [employer] Other 03-02-2023 10:00-0400 Respiratory rate 20 /min Herberth Joana Other [employer] Other 03-02-2023 10:00-0400 SaO2% (BldA) [Mass fraction] 96 % Herberth Joana Other [employer] Other 03-02-2023 10:00-0400 Systolic blood pressure 136 mm[Hg] Herberth Joana Other [employer] Other 12-08-2022 09:30-0500 Diastolic blood pressure 59 mm[Hg] MD Shaikh Ohara Work Phone: [facility] 12-08-2022 09:30-0500 Heart rate 55 /min MD Shaikh Ohara Work Phone: [facility] 12-08-2022 09:30-0500 Respiratory rate 16 /min MD Shaikh Ohara Work Phone: [facility] 12-08-2022 09:30-0500 SaO2% (BldA) [Mass fraction] 96 % MD Shaikh Ohara Work Phone: [facility] 12-08-2022 09:30-0500 Systolic blood pressure 112 mm[Hg] MD Shaikh Ohara Work Phone: [facility] 12-08-2022 06:54-0500 Body height 162.56 cm MD Shaikh Ohara Work Phone: [facility] 12-08-2022 06:54-0500 Body temperature 98.2 [degF] MD Shaikh Ohara Work Phone: [facility] 12-08-2022 06:54-0500 Body weight 104.32 kg MD Shaikh Ohara Work Phone: [facility] 08-09-2022 11:00-0400 Body height 165.1 cm Herberth Joana Other [employer] Other 08-09-2022 11:00-0400 Body mass index (BMI) [Ratio] 37.87 kg/m2 Herberth Joana Other [employer] Other 08-09-2022 11:00-0400 Body temperature 97.2 [degF] Herberth Joana Other [employer] Other 08-09-2022 11:00-0400 Body weight 103.24 kg Herberth Joana Other [employer] Other 08-09-2022 11:00-0400 Diastolic blood pressure 88 mm[Hg] Herberth Joana Other [employer] Other 08-09-2022 11:00-0400 Respiratory rate 20 /min Herberth Joana Other [employer] Other 08-09-2022 11:00-0400 SaO2% (BldA) [Mass fraction] 95 % Herberth Joana Other [employer] Other 08-09-2022 11:00-0400 Systolic blood pressure 133 mm[Hg] Herberth Joana Other [employer] Other 11-17-2021 10:40-0500 Body height 165.1 cm Herberth Jaona Other [employer] Other 11-17-2021 10:40-0500 Body mass index (BMI) [Ratio] 37.97 kg/m2 Herberth Joana Other [employer] Other 11-17-2021 10:40-0500 Body temperature 97.8 [degF] Herberth Joana Other [employer] Other 11-17-2021 10:40-0500 Body weight 103.51 kg Herberth Joana Other [employer] Other 11-17-2021 10:40-0500 Diastolic blood pressure 70 mm[Hg] Herberth Joana Other [employer] Other 11-17-2021 10:40-0500 Respiratory rate 18 /min Herberth Joana Other [employer] Other 11-17-2021 10:40-0500 SaO2% (BldA) [Mass fraction] 94 % Herberth Joana Other [employer] Other 11-17-2021 10:40-0500 Systolic blood pressure 130 mm[Hg] Herberth Joana Other [employer] Other 08-30-2021 13:15-0400 Body height 165.1 cm Rena Ginty Other [employer] Other 08-30-2021 13:15-0400 Body mass index (BMI) [Ratio] 36.61 kg/m2 Rena Ginty Other [employer] Other 08-30-2021 13:15-0400 Body temperature 98.7 [degF] Rena Ginty Other [employer] Other 08-30-2021 13:15-0400 Body weight 99.79 kg Rena Ginty Other [employer] Other 08-30-2021 13:15-0400 SaO2% (BldA) [Mass fraction] 90 % Rena Ginty Other [employer] Other Encounters Encounter Date Encounter Type Care Provider Facility Start: 07-15-2024 End: 07-15-2024 ambulatory Jayshree Vargas MD Facility:[facility] Start: 07-11-2024 End: 07-11-2024 ambulatory [facility] Start: 07-11-2024 End: 07-11-2024 ambulatory AIDA BLANC Not Available Start: 07-02-2024 End: 07-02-2024 ambulatory [facility] Start: 06-25-2024 ambulatory [facility] Start: 06-24-2024 End: 06-24-2024 ambulatory Jayshree Vargas MD Facility:[facility] Start: 06-21-2024 End: 06-21-2024 ambulatory [facility] Start: 06-12-2024 End: 06-12-2024 ambulatory AIDA BLANC Not Available Start: 05-13-2024 End: 05-13-2024 ambulatory [facility] Start: 05-06-2024 End: 05-06-2024 ambulatory Jayshree [...] Steph Collier Work Phone: [facility] Work Phone: Start: 03-14-2024 End: 03-14-2024 Patient encounter procedure Steph Collier Work Phone: [facility] Work Phone: Start: 03-06-2024 Non-patient / Non-visit Steph Collier Work Phone: [facility] Professional [employer] Work Phone: Start: 02-26-2024 End: 02-26-2024 ambulatory [...] 09-07-2023 End: 09-07-2023 ambulatory Herberth Joana Other [employer] Other Start: 09-07-2023 Telephone encounter Herberth Joana [facility] Start: 08-28-2023 End: 08-28-2023 ambulatory Herberth Joana Other [employer] Other Start: 08-28-2023 Telephone encounter Herberth Joana [facility] Start: 08-21-2023 End: 08-21-2023 ambulatory Jayshree Vargas MD Facility: [facility] Start: 08-17-2023 End: 08-17-2023 ambulatory Herberth Joana Other [employer] Other Start: 08-17-2023 Office outpatient visit 25 minutes Herberth Joana [facility] Start: 04-04-2023 End: 04-04-2023 ambulatory SHAIKH Dimitry OHARA Facility:[facility] Start: 03-24-2023 End: 03-25-[address] STEPH GRANADOS Facility:[facility] Start: 03-02-2023 End: 03-02-2023 ambulatory Herberth Joana Other [employer] Other Start: 03-02-2023 Office outpatient visit 25 minutes Herberth Joana [facility] Start: 02-25-2023 End: 02-26-2023 ambulatory HERBERTH JOANA Facility:[facility] Start: 02-22-2023 End: 02-23-2023 ambulatory BO MCCLAIN . Facility:[facility] Start: 12-15-2022 End: 12-16-[address] JACK HALL . Facility:[facility] Start: 12-08-2022 End: 12-08-2022 ambulatory Shaikh Lev Facility:[facility] Start: 12-08-2022 End: 12-08-2022 Admission to same day surgery center MD Shaikh Ohara Work Phone: [facility] Work Phone: Start: 12-08-2022 End: 12-08-2022 ambulatory MD Shaikh Ohara Work Phone: [facility] Work Phone: Start: 11-11-2022 End: 11-11-[address] JACK HALL . Facility: Start: 11-09-2022 End: 11-09-2022 ambulatory Azkatherine Bakhous Other [employer] Other Start: 11-09-2022 Telephone encounter Azkatherine Bakhous [facility] Start: 08-19-2022 End: 08-20-2022 ambulatory HERBERTH JOANA Facility:[facility] Start: 08-09-2022 End: 08-09-2022 ambulatory Herberth Joana Other [employer] Other Start: 08-09-2022 Office outpatient visit 10 minutes Herberth Joana [facility] Start: 08-09-2022 Telephone encounter Herberth Joana [facility] Start: 08-05-2022 Telephone encounter Herberth Joana [facility] Start: 08-05-2022 End: 08-06-2022 ambulatory HERBERTH JOANA [employer] Other Start: 07-08-2022 End: 07-08-2022 ambulatory Gato Loco Other [employer] Other Start: 07-08-2022 Telephone encounter Gato Cesar [facility] Start: 07-05-2022 End: 07-06-2022 ambulatory SAUNDESR H FAWWAD Facility:[facility] Start: 06-08-2022 End: 06-09-2022 ambulatory SAUNDERS H FAWWAD Facility:[facility] Start: 06-07-2022 End: 06-07-2022 ambulatory SAUNDERS H FAWWAD Facility:[facility] Start: 01-24-2022 End: 01-25-2022 ambulatory PHYSICIAN UNKNOWN Facility:[facility] Start: 11-17-2021 End: 11-17-2021 ambulatory Herberth Joana Other [employer] Other Start: 11-17-2021 Office outpatient visit 15 minutes Herberth Joana [facility] Start: 08-30-2021 Office outpatient visit 15 minutes Rena Marysolkamranchioma [facility] Start: 09-11-2020 End: 09-11-2020 Chart abstracting Miguelito Buck Work Phone: Hematology/Oncology Start: 09-11-2020 End: 09-11-2020 Patient encounter procedure External Provider [facility] Start: 09-11-2020 Results Only External Provider Exter nal-[facility] Start: 09-30-2019 End: 09-30-2019 Patient encounter procedure [facility] Main Rena Lara Start: 07-07-2017 End: 07-07-2017 Admission to day surgery [facility] Start: 05-24-2004 Evaluation and management of inpatient [facility] [place] Start: 04-26-2004 Evaluation and management of inpatient [facility] [place] Procedures Date Procedure Procedure Detail Performing Clinician Start: 12-08-2022 Colonoscopy MD Shaikh Ohara Work Phone: Start: 09-11-2020 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 Final Finisher al Provider Start: 09-11-2020 EXTERNAL LAB External P rovider Start: 09-11-2020 EXTERNAL PROCEDURE Exte rnal Provider Start: 09-30-2019 Ultrasonography of b ilateral kidneys Steph Collier Plan of Treatment Date Care Activity Detail Author Start: 12-08-2022 [facility] Start: 07-07-2020 Influenza vaccination INFLUENZA (#1) [facility] Start: 2006 SHINGRIX VACCINE (1 of 2) SHINGRIX VACCINE (1 of 2) [facility] Start: 2006 Tuberculosis screening COLORECTAL CANCER SCREENING,SEE MODIFIER [facility] Start: 2001 DIABETES SCREEN DIABETES SCREEN [facility] Start: 2001 LIPID SCREEN LIPID SCREEN [facility] Start: 1996 Mammography MAMMOGRAM [facility] Start: 1986 HPV TESTING HPV TESTING [facility] Start: 1977 PAP TESTING PAP TESTING [facility] Start: 1975 Urine microalbumin profile DTAP,TDAP,TD (1 - Tdap) [facility] Start: 1974 HEPATITIS C SCREENING HEPATITIS C SCREENING [facility] Start: 1974 HIV SCREENING HIV SCREENING [facility] Patient Education Colon Polypect shaharm Hemorrhoids (DC) Diverticulosis (DC) [facility] Work Phone: [place] Carrol engle Immunizations Immunization Date Immunization Notes Care Provider Henrietta donatofernanda 07-18-2018 Depo-Medrol 40 mg Rena Gint y Other [employer] Other 01-31-2018 Depo-Medrol 40 mg Rena Gint y Other [employer] [facility] [employer] Other 08-09-2017 influenza virus vaccine, unspecified formulation Steph Ros Work Phone: [facility] 08-09-2017 influenza, seasonal, injectable, preservative free Rena Ginty Other [employer] [facility] [employer] Other Payers Date Payer Category Payer Unknown 2022 Self-pay [id number] 2021 Medicare [id number] 2020 Medicaid [id number] 2019 Medicaid MEDICAID [facility] [place] [id number] 2019-Present Medicaid [id number] 2016 Medicare MEDICARE MEDICAR E A AND B [id number] 2016-Present [place] Medicare [id number] 1959 Unknown [id number] 1955 Unknown [id number] 2.16.840.1.969240.3.579.2.647 1955 Unknown [id number] 2.16.840.1.476436.3.579.2.593 1955 Unknown [id number] 2.16.840.1.083644.3.579.2.593 1955 Unknown [id number] 2.16.840.1.697334.3.579.2.593 1955 Unknown [id number] 2.16.840.1.903973.3.579.2.593 1956 Unknown [id number] 2.16.840.1.963204.3.579.2.593 1955 Unknown [id number] 2.16.840.1.823462.3.579.2.593 1955 Unknown [id number] 2.16.840.1.973856.3.579.2.593 1955 Unknown [id number] 2.16.840.1.803745.3.579.2.593 1955 Unknown [id number] 2.16.840.1.562317.3.579.2.593 1956 Unknown [id number] 2.16.840.1.135605.3.579.2.593 1955 Unknown [id number] 2.16.840.1.662198.3.579.2.593 1956 Unknown [id number] 2.16.840.1.598184.3.579.2.1259 1956 Unknown [id number] 2.16.840.1.812792.3.579.2.1259 1956 Unknown [id number] 2.16.840.1.878203.3.579.2.1259 1956 Unknown [id number] 2.16.840.1.930864.3.579.2.1259 1956 Unknown [id number] 2.16.840.1.332601.3.579.2.125 1956 Unknown [id number] 2.16.840.1.335025.3.579.2.1258 1956 Unknown [id number] 2.16.840.1.079318.3.579.2.1258 1956 Unknown [id number] 2.16.840.1.121582.3.579.2.1258 1956 Unknown [id number] 2.16.840.1.286513.3.579.2.1258 1955 Unknown [id number] 2.16.840.1.417828.3.579.2.1258 1955 Unknown [id number] 2.16.840.1.705218.3.579.2.1258 1955 Unknown [id number] 2.16.840.1.026080.3.579.2.1258 1956 Unknown [id number] 2.16.840.1.054619.3.579.2.1258 1955 Unknown [id number] 2.16.840.1.628034.3.579.2. 1955 Unknown [id number] 2.16.840.1.726266.3.579.2. 1955 Unknown [id number] 2.16.840.1.856350.3.579.2. 1955 Unknown [id number] 2.16.840.1.506242.3.579.2. 1955 Unknown [id number] 2.16.840.1.806292.3.579.2. 1955 Unknown [id number] 2.16.840.1.496281.3.579.2. 1955 Unknown [id number] 2.16.840.1.464252.3.579.2. 1955 Unknown [id number] 2.16.840.1.970697.3.579.2.196 1955 Unknown [id number] 2.16.840.1.339060.3.579.2.196 Medicare [id number] Unknown HCAP/HFA/FAP Active [id number] Unknown [id number] 2.16.840.1.094186.3.579.2.531 Social History Date Type Detail Facility Tobacco smoking stat [facility] Unknown if ever smoked [facility] Start: 1955 Sex Assigned At Female F [facility] Start: 09-11-2020 End: 03-14-2024 Tobacco smoking status CAIS Never smoker [facility] Start: 09-11-2020 Tobacco use and exposure Never used [facility] Start: 09-11-2020 Alcohol intake Lifetime non-d my (finding) [facility] Start: 09-11-2020 History SDOH Alcohol Frequency 1 [facility] Sex Assigned At Not on file [facility] Sex Assigned At Sex Assigned At [facility] [employer] Other Goals Date Patient Goal Desired Activity /State Clinical Notes 08-30-2021 to 07-11-2024 Note Date & Type Note Facility 07-11-2024 Note Attestation signed by Emelia Yoo MD at 07/12/2024 10:19 AM Total time spent on day of [...] be an additional personal documentation from me. Pulmonary Clinic Visit Note Patient: Diana Champion Age: 68 y.o. : 1955 Account No.: [id number] [facility] Chief Complaint: follow up after recent bronch History of Present Illness: 68 y.o. female with PMHx of reportedly COPD, chronic hypoxic respiratory failure on 2L home O2 who presented today for a follow-up after recent procedure. Patient underwent bronchoscopy under conscious sedation which showed severe tracheobronchomalacia with mucous plugging and bilateral mainstem bronchi distal endobronchial airways could not be entered for assessment due to severe tracheobronchomalacia. Currently patient feels relatively well. At her baseline. On home oxygen. Of note Patient has been admitted 4 times over the past year for pneumonia to the hospital. This is thought to be secondary to dynamic airway collapse. Currently the patient is using Trelegy inhaler, albuterol inhaler and DuoNebs twice a day. S The patient is a never smoker however was exposed to secondhand smoke for over 50 years. 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 Her family history is positive for COPD [...] Labwork: MM genotype for Alpha 1 antitrypsin Total time spent in Medical Discussion including obtaining history from the patient, review of labs, tests with the patient, discussion of assessment and plan . The visit was initiated by the patient and conducted [id number] with use of audio-only real time telephone communication between patient and provider for a virtual visit. Verbal consent to provide and bill this service was obtained on: 07/11/24 No signature was obtained due to the COVID-19 pandemic. Past Medical History: Diagnosis Date Allergic rhinitis Anemia Asthma Cancer ([facility]) Chronic heart failure with preserved ejection fraction ([facility] Chronic hypoxic respiratory failure ([facility] Chronic kidney disease COPD (chronic obstructive pulmonary disease) ([facility]) Coronary artery disease Depression Diabetes mellitus ([facility]) Dyspnea GERD (gastroesophageal reflux disease) Hyperlipidemia Lumbar spondylosis Other secondary pulmonary hypertension ([facility]) Pneumonia Primary osteoarthritis of right hip Pulmonary nodule Restless leg syndrome Spinal stenosis, lumbar region without neurogenic claudication Urge incontinence Past Surgical History: Procedure Laterality Date BACK [...] NEBULIZER EVERY 4 TO 6 HOURS NEEDED Historical Provider, albuterol 90 mcg/actuation inhaler INHALE 2 PUFFS BY MOUTH EVERY 4 HOURS NEEDED FOR SHORTNESS OF BREATH Historical Provider, baclofen (Lioresal) 5 mg tablet Take 10 mg by mouth in the morning, afternoon, and at bedtime. 03/14/23 Historical Provider, cholecalciferol (Vitamin D-3) 25 MCG (1000 UT) tablet Take 1 tablet by mouth in the morning. Historical Provider, ferrous sulfate 325 (65 Fe) MG tablet Take 325 mg by mouth every other day. Historical Provider, xqumoywarbc-xlzuuwinu-lhglrxcb 100-62.5-25 mcg blister with device Historical Provider, guaiFENesin (Mucinex) 600 mg 12 hr tablet Take 1 tablet by mouth in the morning and at bedtime. Historical Provider, magnesium oxide (Mag-Ox) 400 mg (241.3 mg magnesium) tablet TAKE 1 TABLET BY MOUTH ONCE DAILY WITH FOOD 02/07/23 Historical Provider, montelukast (Singulair) 10 mg tablet Take 1 tablet by mouth at bedtime. Historical Provider, multivitamin (Theragran-M) 9 mg (more content not included)... [facility] 07-02-2024 Note Attestation signed by Ghulam Petersen MD at 07/08/2024 2:41 PM I was present and supervised the entire procedure PULMONARY & CRITICAL CARE MEDICINE PROCEDURE NOTE FLEXIBLE FIBEROPTIC BRONCHOSCOPY INDICATIONS AND HISTORY: Please refer to H&P PROCEDURE: Flexible Fiberoptic Bronchoscopy with airway inspection ANESTHESIA: Conscious sedation PREPROCEDURE DIAGNOSIS: Recurrent pneumonias, concern for dynamic airway collapse, chronic cough POSTPROCEDURE DIAGNOSIS: Severe tracheobronchomalacia PROCEDURE INSOLE PRESSER: Goran Canseco ATTENDING PHYSICIAN: Dr. Ghulam Petersen MD CONSENT: Written, informed consent explaining risks, benefits, indications and expected outcomes of the procedure was obtained prior to procedure from the patient. The possibilities of reaction to medication, pulmonary aspiration, perforation of a viscus, bleeding, failure to diagnose a condition and creating a complication requiring transfusion or surgery were discussed. TIME-OUT: A time-out was completed verifying correct patient and procedure. PROCEDURE SUMMARY: A Time Out was held and the above information confirmed. Patient was placed on 6 L/min of nasal cannula oxygen. Conscious sedation provided by trained RN and supervised by the [employer] Maker. Continuous monitoring of heart rate, respiratory rate, pulse oximetry and ETCO2 was performed. Th patient received total of 8 mg of Versed and 25 mcg of Demerol and the dosage were recorded on the sedation form. Starting time: 9:47 AM Ending time: 10:13 AM The bronchoscope was inserted into the oral cavity and passed through oropharynx and hypopharynx. Epiglottis and vocal cords were visualized. Lidocaine was instilled on vocal cords and scope passed to enter trachea. After careful inspection of the trachea, the scope was sequentially passed into right and left mainstem bronchi. ENDOBRONCHIAL FINDINGS: Larynx and Vocal cords: Inflammation of arytenoids and false vocal cords noted Trachea: Severe tracheobronchomalacia Angelina: Sharp with mucus plugging entering bilateral mainstem bronchi Distal endobronchial airways could not be entered for assessment due to severe tracheobronchomalacia. SPECIMENS OBTAINED: None IMPRESSION: Severe tracheobronchomalacia Mucus plugging due to above GERD related changes to upper airway COMPLICATIONS: None apparent RECOMMENDATIONS: Follow up with Interventional Pulmonology Dr. Yoo in 1-2 weeks for treatment options for tracheobronchomalacia [facility] 07-02-2024 Note Patient: Yannick Champion Pre-sedation Evaluation: Sedation necessary for: Analgesia Requesting service: Pulmonary History of Present Illness: Refer to H &P PLANER OFFBEARER/Current Medications: Reviewed Recent sedation/surgery (24 hours): No Review of Systems: Negative NPO guidelines met: Yes Physical Exam: Airway Mallampati: II Neck ROM: full Cardiovascular (-) murmur, friction rub, carotid bruits Dental Pulmonary (+) on nasal cannula (-) tachypnea, accessory muscle use (-) wheezes, rales Plan: ASA 3 Moderate Proceed with consious sedation for Bronchoscopy and BAL [facility] 06-25-2024 Note Attestation signed by Emelia Yoo MD at [...] be an additional personal documentation from me. Pulmonary Telemedicine Visit Note Patient: Diana Champion Age: 68 y.o. : 1955 Account No.: [id number] Referring physician: Dr. Bo Mcclain Chief complaint: Recurreny pneumonia HPI Diana Champion is a 68 y.o. female with PMHx of reportedly COPD, chronic hypoxic respiratory failure on 2L home O2 who is presenting to clinic as a new patient after being referred by Dr. Bo Baker of [facility]. 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 Her family history is positive for COPD [...] Past Medical History: Diagnosis Date Asthma Cancer (CMS/[facility]) COPD (chronic obstructive pulmonary disease) (CMS/HCC) Coronary artery disease GERD (gastroesophageal reflux disease) [...] mouth every other day. Yes Historical Provider, xloeigozxkw-zilcqgjlq-pjxpejtw 100-62.5-25 mcg blister with device Yes Historical [...] mEq ER ta (more content not included)... [facility] 05-13-2024 Note [facility] Note Chief Complaint: Patient here for 1 year follow up CAD and hypertension. She was recently discharged from [facility] for Covid-19. She says hydrochlorothiazide was [...] breath since then. She has seen her pleater hand. Her chest pain is noncardiac. She has [...] a past medical history of Asthma, Cancer ([facility]), COPD (chronic obstructive pulmonary disease) ([facility]), Coronary [...] mouth every other day., Disp: , Rfl: leltewmfjvr-izfqxqtzv-blpfejwr 100-62.5-25 mcg blister with device, , Disp: [...] Examination: GENERAL: a (more content not included)... [facility] 09-07-2023 Evaluation note Encounter Date Diagnosis Assessment Notes Sep, Hypomagnesemia (ICD-10 - E83.42) [facility] Other 10-23-2023 Evaluation note* Encounter Date Diagnosis Assessment Notes Treatment Notes Treatment Clinical Notes Aug, Nico guillen kid w cr kid I-IV (ICD-10 - I12.9) [facility] Other 10-12-2023 Evaluation note* Encounter Date Diagnosis [...] PPI induced GI losses. Continue oral Magnesium [facility] Other 05-19-2023 NotePROCEDURE: XR HIP RT 2 3V W PELVIS HISTORY: Pain in right hip joint , chronic COMPARISON: XR L-spine 02/26/2019, XR left hip with pelvis 03/11/2017 FINDINGS: BONES:Complete loss of the right hip joint space with gush-ky-rcmn articulation, subchondral sclerosis and cysts, and large periarticular degenerative osteophytes. No fracture or dislocation. Left hip replacement. Mechanical fusion of L5-S1 and moderate dextroscoliosis of lumbar spine. SOFT TISSUES:No visible soft tissue swelling. EFFUSION:None visible. OTHER: Negative. IMPRESSION: 1. Marked degenerative joint disease of the right hip; progressed since prior study. 2. Stable surgical changes. Electronically authenticated by: STEPH GRANADOS Date: 2023-03-24 12:55[facility]04[facility]27[facility] Evaluation note* Encounter Date Diagnosis [...] PPI induced GI losses. Continue oral Magnesium [facility] Encounter Date Diagnosis Assessment Notes Treatment Notes Treatment Clinical Notes Nov, Hypokalemia (ICD-10 - E87.6) Nov, Hypomagnesemia (ICD-10 - E83.42) [facility] Other 10-04-2022 Evaluation note* Encounter Date Diagnosis [...] office does not accept her new insurance. [facility] Other 09-02-2022 Evaluation note* Encounter Date Diagnosis Assessment Notes Treatment Notes Treatment Clinical Notes Jul, History of colon cancer (ICD-10 - Z85.038) [facility] Other 01-12-2022 Evaluation note* Encounter Date Diagnosis [...] potassium wasting. I have prescribed oral potassium. [facility] Other 10-25-2021 Evaluation note* Encounter Date Diagnosis [...] Patient care instructions given in writting by [facility] Home document [employer] Other Evaluation noteNo InformationNort [employer] Other Evaluation note* Diagnosis Onset Date Resolution Status History of colon cancer acut e [facility] Work Phone: Evaluation note* Diagnosis Onset Date Resolution Status Hypokalemia acute Hypomagnesemia acute Stage 3 chronic kidney disease acute COVID noneactive Pneumonia noneactive [facility] Work Phone: Hishsay general Narrative - Reported* Type Description Date [...] IN 08/2019 Hospitalization History HIP REVISION 03/2020 [facility] [facility] Other [facility]iss[facility] general Narrative - Reported* Type Description Date [...] Hospitalization History COVID X 2 WEEKS 04/2023 [facility] Other Hospital Discharge instructions Additional Instructions DISCHARGE [...] if you have any problems. -Office number [phone] Work Phone: Advance Directives [...] or prosecute any alcohol or drug abuse patient.[facility] Hospital[facility] the event this information is protected by the Federal Confidentiality of Alcohol and Drug Abuse Patient Records regulations: The Federal rules restrict any use of the information to criminally investigate or prosecute any alcohol or drug abuse patient.[facility] HospitalIn the event this information is protected by the Federal Confidentiality of Alcohol and Drug Abuse Patient Records regulations: The Federal rules restrict any use of the information to criminally investigate or prosecute any alcohol or drug abuse patient.[facility] HospitalIn the event this information is protected by the Federal Confidentiality of Alcohol and Drug Abuse Patient Records regulations: The Federal rules restrict any use of the information to criminally investigate or prosecute any alcohol or drug abuse patient.[facility] INFORMATION SOURCE (unrecogn ized section and content) DATE CREATED AUTHOR 03/03/2022 [facility] DATE CREATED AUTHOR AUTHOR'S ORGANIZ ATION 04/17/2023 [facility] DATE CREATED AUTHOR AUTHOR'S ORGANIZ ATION 06/07/2023 [facility] DATE CREATED AUTHOR AUTHOR'S ORGANIZ ATION 07/12/2024 [facility] EPIC DATE CREATED AUTHOR AUTHOR'S ORGANIZ ATION 07/13/2024 [facility] DATE CREATED AUTHOR AUTHOR'S ORGANIZ ATION 07/21/2024 [facility] REASON FOR VISIT (unrecogniz ed section [...] BE BASED ON THE PRIMARY CLINICAL RECORDS. [facility]. provides no warranty or guarantee of the accuracy or completeness of information in this document.
[2024-08-08] MEDS: PREGABALIN 75 MG CAPSULE PO (22:33)
[2024-08-08] MEDS: BACLOFEN 10 MG TABLET PO (22:33)
[2024-08-08] MEDS: TRAZODONE HCL 50 MG TABLET 100 MG PO (22:33)
[2024-08-08] MEDS: ENOXAPARIN SODIUM 40 MG/0.4 ML SYRINGE SUBQ (22:33)
[2024-08-09] VITALS (19 sets, daily range): BP systolic 111–128; BP diastolic 63–73; PULSE 55–77; TEMP 36.4–36.6; O2SAT 90–97; BMI 24.2
[2024-08-09] MEDS: IPRATROPIUM/ALBUTEROL SULFATE 3 ML AMPUL.NEB IH ×5 (04:26→23:11)
[2024-08-09] MEDS: BACLOFEN 10 MG TABLET PO ×3 (05:10→21:11)
[2024-08-09] MEDS: METHYLPREDNISOLONE SOD SUCC PF 40 MG/ML VIAL IVP ×3 (05:10→21:11)
[2024-08-09 05:53] LABS: Hematocrit 37.6 % (36.0-48.0); Hemoglobin 11.9 g/dL (12.0-16.0); Mean Corpuscular HGB Conc 31.6 g/dL (29.9-35.2); Mean Corpuscular Hemoglobin 29.8 pg (26.7-34.0); Mean Platelet Volume 9.3 fL (9.5-13.5); Platelet Count 231 10^3/uL (150-450); Red Cell Distribution Width 13.1 % (11.0-15.0); White Blood Count 13.2 10^3/uL (4.0-11.0)
[2024-08-09 06:03] LABS: pH VBG 7.348 (7.330-7.430)
[2024-08-09 06:13] LABS: Alanine Aminotransferase 10 U/L (14-59); Albumin Globulin Ratio 0.6; Albumin Level 2.6 g/dL (3.4-5.0); Alkaline Phosphatase 85 U/L (46-116); Anion Gap 8.6; Aspartate Amino Transferase 11 U/L (15-37); BUN Creatinine Ratio 5.8; Bilirubin Total 0.2 mg/dL (0.2-1.0); Calcium 8.6 mg/dL (8.5-10.1); Carbon Dioxide 31.8 mmol/L (21.0-32.0); Chloride 100 mmol/L (98-107); Estimated GFR (African America 54 (>=60 mL/min/1.73m^2); Estimated GFR (Non-African Ame 44 (>=60 mL/min/1.73m^2); Globulin 4.1 g/dL; Glucose 175 mg/dL (74-106); Potassium 3.4 mmol/L (3.5-5.1); Sodium 137 mmol/L (136-145); Total Protein 6.7 g/dL (6.4-8.2)
[2024-08-09 06:42] LABS: Basophils Abs Manual 0.13 10^3/uL (0.00-0.10); Lymphocytes Absolute Manual 0.52 10^3/uL (1.20-3.80); Monocytes Absolute Manual 0.52 10^3/uL (0.30-0.80); Segmented Neut Absolute Manual 12.01 10^3/uL (1.4-6.5)
[2024-08-09] MEDS: PREGABALIN 75 MG CAPSULE PO ×2 (09:09→21:11)
[2024-08-09] MEDS: SOLIFENACIN SUCCINATE 10 MG TABLET PO (09:09)
[2024-08-09] MEDS: MAGNESIUM OXIDE 400 MG TABLET PO (09:09)
[2024-08-09] MEDS: OMEPRAZOLE 20 MG CAPSULE.DR PO ×2 (09:09→21:11)
[2024-08-09] MEDS: ENOXAPARIN SODIUM 40 MG/0.4 ML SYRINGE SUBQ (09:09)
[2024-08-09] MEDS: MONTELUKAST SODIUM 10 MG TABLET PO (09:09)
[2024-08-09] MEDS: GUAIFENESIN 600 MG TAB.ER.12H PO ×2 (09:09→21:11)
[2024-08-09] MEDS: PAROXETINE HCL 20 MG TABLET 30 MG PO (09:09)
[2024-08-09] MEDS: 0.9 % SODIUM CHLORIDE 250 ML 10 ML IV (09:32)
[2024-08-09] MEDS: PIPERACILLIN SODIUM/TAZOBACTAM 3.375 GM in 0.9 % SODIUM CHLORIDE 50 ML IV ×2 (09:32→16:51)
--- NOTE | 2024-08-09 09:38 | CM.NOTE ---
Rounds made with Dr. Ohara, discussed with pt diagnosis and plan of care. Pt will continue IV antibiotics and IV steroids. Dr. Ohara will also order PT.
--- NOTE | 2024-08-09 09:42 | PM.HP ---
HPI H&P: HPI History of Present Illness Chief complaint: COPD EXCERBATION W HYPOXIZ Narrative: 69-year-old female with chronic respiratory failure with hypoxia on 3 L oxygen, severe COPD/asthma with bronchiectasis presented to ER with 2 to 3 days of worsening shortness of breath, increased cough with sputum along with generalized weakness/poor oral intake. In ER patient was found to be hypoxic with pulse ox in 87% along with tachypnea and increased work of breathing. She had a CTA chest to rule out PE that did not reveal any pulmonary embolism but was noticeable for possible right lower lobe infiltrate. Patient was started on IV Rocephin/azithromycin along with Solu-Medrol and DuoNebs. Upon my evaluation today, she seemed a little lethargic and tired. She did not have increased work of breathing but was not visibly short of breath during conversation. She was still requiring 5 L of oxygen via nasal cannula. Patient was also coughing during physical exam. Given her history of recurrent antibiotic exposure and prednisone use for frequent flareups, she is at high risk of resistant organisms including MRSA and Pseudomonas. I changed her IV antibiotics to vancomycin and Zosyn. I also added saline nebs to help with chest congestion/mucus. Pulmonology consulted. Opioid HPI Opioid Management Most Recent Pain and Opioid Data: Last Pain Scale 5 07/15/24 08:45 Last Pain Intensity 0 02/05/24 08:27 Last Pain Assessment 08/09/24 07:00 Last ED Pain Assessment 08/08/24 17:00 Last ORT Total Score 6 08/08/24 21:55 Last ORT Risk Category Moderate Risk 08/08/24 21:55 Review of Systems ROS Status of ROS 10 or more systems reviewed and unremarkable except as noted in history and below [facility] Medical History Hypomagnesemia ?E83.42 - Hypomagnesemia (ICD-10) Acute hypokalemia ?E87.6 - Hypokalemia (ICD-10) Pneumonia ?J18.9 - Pneumonia, unspecified organism (ICD-10) Acute exacerbation of chronic obstructive pulmonary disease ?J44.1 - Chronic obstructive pulmonary disease with (acute) exacerbation (ICD-10) CAD (coronary artery disease) ?I25.10 - Atherosclerotic heart disease of [place] coronary artery without angina pectoris (ICD-10) Chronic heart failure with preserved ejection fraction (HFpEF) ?I50.32 - Chronic diastolic (congestive) heart failure (ICD-10) Hypertension ?I10 - Essential (primary) hypertension (ICD-10) Myofascial pain ?M79.18 - Myalgia, other site (ICD-10) Greater trochanteric bursitis ?M70.60 - Trochanteric bursitis, unspecified hip (ICD-10) Osteoarthritis of right hip ?M16.11 - Unilateral primary osteoarthritis, right hip (ICD-10) Lumbar spondylosis ?M47.816 - Spondylosis without myelopathy or radiculopathy, lumbar region (ICD-10) Lumbar postlaminectomy syndrome ?M96.1 - Postlaminectomy syndrome, not elsewhere classified (ICD-10) Lumbar stenosis with neurogenic claudication ?M48.062 - Spinal stenosis, lumbar region with neurogenic claudication (ICD-10) Depression ?F32.A - Depression, unspecified (ICD-10) Chronic low back pain ?M54.50 - Low back pain, unspecified (ICD-10) ?G89.29 - Other chronic pain (ICD-10) Hypoxia ?R09.02 - Hypoxemia (ICD-10) Heart murmur ?R01.1 - Cardiac murmur, unspecified (ICD-10) Chronic obstructive pulmonary disease ?J44.9 - Chronic obstructive pulmonary disease, unspecified (ICD-10) Asthma ?J45.909 - Unspecified asthma, uncomplicated (ICD-10) Surgical History Status post hip surgery ?Z98.890 - Other specified postprocedural states (ICD-10) H/O foot surgery ?Z98.890 - Other specified postprocedural states (ICD-10) H/O tubal ligation ?Z98.51 - Tubal ligation status (ICD-10) History of lumbar fusion ?Z98.1 - Arthrodesis status (ICD-10) Family History Mother Family history of CHF (congestive heart failure) Family history of hypertension Father Family history of hypertension Family history of myocardial infarction Social History Within the past year, how often did you have a drink containing alcohol: never Score interpretation: A score less than 3 is consistent with normal alcohol consumption. Smoking status: Never smoker Non-prescribed substance use: denies use Previous occupational history: retired Highest level of school completed/degree received: Associate degree: occupational, technical, vocational program Are you now , , , , never or living with a partner: In a typical week, how many times do you talk on the telephone with family, friends, or neighbors: 3 or more times per week How often do you get together with friends or relatives: 3 or more times per week How often do you attend episcopalian or anglican services: 4 or more times per year Do you belong to any clubs or organizations such as episcopalian groups unions, [email or web address] or athletic groups, or school groups: no Total score: 2 Score interpretation: A score of greater than or equal to 2 indicates the lowest level of social isolation. Little interest or pleasure in doing things: not at all Feeling down, depressed, or hopeless: not at all Feel stressed/tense/nervous/anxious/difficulty sleeping: not at all Do you think of yourself as: straight/heterosexual Gender Identity: female Meds Home Medications and Allergies Home Medications ?Medication ?Instructions ?Recorded ?Confirmed ?Type fluticasone fur. 200 mcg-umeclid 1 inh inhalation Q24H COPD 04/10/23 08/08/24 History 62.5 mcg-vilant 25 mcg inhalat.powder (Trelegy Ellipta) magnesium oxide 400 mg (241.3 mg 400 mg PO DAILY 04/10/23 08/08/24 History magnesium) tablet omeprazole 20 mg capsule,delayed 20 mg PO BID 04/10/23 08/08/24 History release montelukast 10 mg tablet 10 mg PO DAILY 09/14/23 08/08/24 History pramipexole 0.25 mg tablet 0.25 mg PO QPM 09/14/23 08/08/24 History ([employer]) paroxetine HCl 30 mg tablet 30 mg PO QDAY 11/25/23 08/08/24 History pregabalin 75 mg capsule 75 mg PO BID 11/25/23 08/08/24 History solifenacin 10 mg tablet 10 mg PO QDAY 11/25/23 08/08/24 History trazodone 100 mg tablet 100 mg PO .qhs 11/25/23 08/08/24 History baclofen 10 mg tablet 10 mg PO Q8H 02/03/24 08/08/24 History albuterol sulfate 2.5 mg/3 mL 2.5 mg continuous nebulization Q4H 06/06/24 08/08/24 History (0.083 %) solution for nebulization PRN shortness of breath or wheezing furosemide 20 mg tablet 20 mg PO DAILY 06/28/24 08/08/24 History sodium chloride 0.9 % for 2.5 ml inhalation Q8H 06/28/24 08/08/24 History nebulization Allergies Allergy/AdvReac Type Severity Reaction Status Date / Time No Known Drug Allergies Allergy Verified 06/28/24 19:48 Exam Constitutional Vital Signs, click to edit/add: Last Vital Signs Temp 97.9 F 08/09/24 08:00 Pulse 56 L 08/09/24 08:00 Resp 20 08/09/24 08:00 BP 126/68 08/09/24 08:00 Pulse Ox 92 L 08/09/24 08:00 O2 Del Method Nasal Cannula 08/09/24 08:00 O2 Flow Rate 5 08/09/24 08:00 General appearance: cooperative, comfortable, ill appearing and frail appearing [facility] Common normals: normocephalic and head/scalp atraumatic Respiratory Other: Coarse breath sounds. Wet sounding cough during exam. Audible wheezing throughout. Conversational dyspnea noted. Appears SOB. Cardio Common normals: regular rate, regular rhythm, S1 normal heart sound and S2 normal heart sound GI Common normals: Normal to inspection, nondistended, normoactive bowel sounds present, soft to palpation and non-tender Extremity Common normals: normal to inspection and full ROM Neuro Common normals: oriented x3, moves all extremities, no focal motor deficits and no sensory deficits noted Sensorium/orientation: lethargic Psych Common normals: mental status grossly normal, thought process normal, denies homicidal ideation and denies suicidal ideation Results Labs Labs: Short CBC 08/08/24 08/09/24 Range/Units 17:00 05:31 WBC 12.5 H 13.2 H (4.0-11.0) 10^3/uL Hgb 12.6 11.9 L (12.0-16.0) g/dL Hct 40.2 37.6 (36.0-48.0) % Plt Count 248 231 (150-450) 10^3/uL BMP 08/08/24 08/09/24 17:00 05:31 Sodium 140 137 Potassium 3.4 L 3.4 L Chloride 100 100 Carbon Dioxide 30.1 31.8 BUN 6.0 L 7.0 Creatinine 1.18 H 1.21 H Glucose 118 H 175 H Calcium 9.1 8.6 Cardiac Enzymes 08/08/24 Range/Units 17:00 Total Creatine Kinase 50 (26-192) U/L Liver Function 08/09/24 Range/Units 05:31 Total Bilirubin 0.2 (0.2-1.0) mg/dL AST 11 L (15-37) U/L ALT 10 L (14-59) U/L Alkaline Phosphatase 85 (46-116) U/L Albumin 2.6 L (3.4-5.0) g/dL ABG ABG results: 08/08/24 08/09/24 20:54 05:31 ABG pH 7.425 ABG pCO2 48.5 H ABG pO2 55.0 L* ABG HCO3 31.8 H ABG O2 Saturation 90.1 ABG Base Excess 7.4 H VBG pH 7.348 VBG pCO2 60.0 H Assessment and Plan Assessment and Plan (1) Acute and chronic respiratory failure with hypoxia: Assessment and Plan: On 3 with oxygen at baseline. Currently on 5 L of oxygen. Patient is dyspneic at rest and is unable to converse due to shortness of breath. Secondary to COPD/asthma exacerbation along with right lower lobe pneumonia. Wean off oxygen as tolerated. (2) Acute exacerbation of chronic obstructive pulmonary disease (COPD): Assessment and Plan: Patient on IV Solu-Medrol, inhaled DuoNebs along with saline nebs. (3) Severe persistent asthma with exacerbation: Assessment and Plan: On IV Solu-Medrol, inhaled DuoNebs along with saline nebs (4) Hospital-acquired pneumonia: Assessment and Plan: Right lower lobe infiltrate on CTA. Will treat for hospital-acquired pneumonia due to recent antibiotic use and prednisone use. She has had multiple hospital admissions in the past recent and is at risk of MRSA and or Pseudomonas due to repeated exposure to IV antibiotics and steroids. Ordered blood and sputum culture. On IV Vanco and Zosyn (5) Chronic heart failure with preserved ejection fraction (HFpEF): Assessment and Plan: Patient appears dehydrated on clinical exam. Started on IV fluids. Monitor closely to avoid risk of volume overload. (6) Hypertension: Assessment and Plan: Blood pressure is well-controlled. Continue with home medications Qualifiers: Hypertension type: primary hypertension Qualified Code(s): I10 - Essential (primary) hypertension (7) Depression: Assessment and Plan: Mood is stable. Continue medications. Qualifiers: Depression Type: major depressive disorder Major depression recurrence: recurrent Active/Remission status: in full remission Qualified Code(s): F33.42 - Major depressive disorder, recurrent, in full remission (8) Lumbar stenosis with neurogenic claudication: Assessment and Plan: Pain unchanged. On pregabalin. Continue with same.
--- NOTE | 2024-08-09 10:58 | P.PLCN_ITS ---
History of Present Illness History of Present Illness Consult date: 08/09/24 Reason for consult: pneumonia Chief complaint: COPD EXCERBATION W HYPOXIZ Narrative: 69yo female presents to the hospital after several days of worsening dyspnea. She is a patient of [employer] whom I actually saw outpatient on 08/06/2024. 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 Along with underlying COPD (developed despite being a lifelong non- smoker) she developed severe tracheobronchomalacia/dynamic airway collapse. She was evaluated by interventional pulmonology with bronchoscopy on 07/02/2024 (Dr. Owens) who also noted the severe tracheobronchomalacia and recommended a tracheobronchoplasty. The patient did not want surgery at this time and preferred conservative measures. I saw her and tested her NIF on 08/06/2024 whic h was only -[id number]. she qualified for NIV which was just delivered yesterday. However, her breathing worsened, and she felt too weak that she was not able to have a good cough or breathe well. She came to the ER for evaluation. Chest CT revealed a new right lower lobe infiltrate compared to prior chest CT from June. She denies any fevers chills or sweats. She is having a worsening rhonchorous cough and dyspnea, even at rest. Review of Systems ROS Status of ROS 10 or more systems reviewed and unremark able except as noted in history and below [facility] Medical History Hypomagnesemia ?E83.42 - Hypomagnesemia (ICD-10) Acute hypokalemia ?E87.6 - Hypokalemia (ICD-10) Pneumonia ?J18.9 - Pneumonia, unspecified organism (ICD-10) Acute exacerbation of chronic obstructive pulmonary disease ?J44.1 - Chronic obstructive pulmonary disease with (acute) exacerbation (ICD-10) CAD (coronary artery disease) ?I25.10 - Atherosclerotic heart disease of [place] coronary artery without angina pectoris (ICD-10) Chronic heart failure with preserved ejection fraction (HFpEF) ?I50.32 - Chronic diastolic (congestive) heart failure (ICD-10) Hypertension ?I10 - Essential (primary) hypertension (ICD-10) Myofascial pain ?M79.18 - Myalgia, other site (ICD-10) Greater trochanteric bursitis ?M70.60 - Trochanteric bursitis, unspecified hip (ICD-10) Osteoarthritis of right hip ?M16.11 - Unilateral primary osteoarthritis, right hip (ICD-10) Lumbar spondylosis ?M47.816 - Spondylosis without myelopathy or radiculopathy, lumbar region (ICD-10) Lumbar postlaminectomy syndrome ?M96.1 - Postlaminectomy syndrome, not elsewhere classified (ICD-10) Lumbar stenosis with neurogenic claudication ?M48.062 - Spinal stenosis, lumbar region with neurogenic claudication (ICD- 10) Depression ?F32.A - Depression, unspecified (ICD-10) Chronic low back pain ?M54.50 - Low back pain, unspecified (ICD-10) ?G89.29 - Other chronic pain (ICD-10) Hypoxia ?R09.02 - Hypoxemia (ICD-10) Heart murmur ?R01.1 - Cardiac murmur, unspecified (ICD-10) Chronic obstructive pulmonary disease ?J44.9 - Chronic obstructive pulmonary disease, unspecified (ICD-10) Asthma ?J45.909 - Unspecified asthma, uncomplicated (ICD-10) Surgical History Status post hip surgery ?Z98.890 - Other specified postprocedural states (ICD-10) H/O foot surgery ?Z98.890 - Other specified postprocedural states (ICD-10) H/O tubal ligation ?Z98.51 - Tubal ligation status (ICD-10) History of lumbar fusion ?Z98.1 - Arthrodesis status (ICD-10) Family History Mother Family history of CHF (congestive heart failure) Family history of hypertension Father Family history of hypertension Family history of myocardial infarction Social History Within the past year, how often did you have a drink containing alcohol: never Score interpretation: A score less than 3 is consistent with normal alcohol consumption. Smoking status: Never smoker Non-prescribed substance use: denies use Previous occupational history: retired Highest level of school completed/degree received: Associate degree: occupational, technical, vocational program Are you now , , , , never or living with a partner: In a typical week, how many times do you talk on the telephone with family, friends, or neighbors: 3 or more times per week How often do you get together with friends or relatives: 3 or more times per week How often do you attend yazidism or mandaeism services: 4 or more times per year Do you belong to any clubs or organizations such as yazidism groups unions, [employer] or athletic groups, or school groups: no Total score: 2 Score interpretation: A score of greater than or equal to 2 indicates the lowest level of social isolation. Little interest or pleasure in doing things: not at all Feeling down, depressed, or hopeless: not at all Feel stressed/tense/nervous/anxious/difficulty sleeping: not at all Do you think of yourself as: straight/heterosexual Gender Identity: female Meds Home Medications and Allergies Home Medications ?Medication ?Instructions ?Recorded ?Confirmed ?Type fluticasone fur. 200 mcg-umeclid 1 inh inhalation Q24H COPD 04/10/23 08/08/24 History 62.5 mcg-vilant 25 mcg inhalat.powder (Trelegy Ellipta) magnesium oxide 400 mg (241.3 mg 400 mg PO DAILY 04/10/23 08/08/24 History magnesium) tablet omeprazole 20 mg capsule,delayed 20 mg PO BID 04/10/23 08/08/24 History release montelukast 10 mg tablet 10 mg PO DAILY 09/14/23 08/08/24 History pramipexole 0.25 mg tablet 0.25 mg PO QPM 09/14/23 08/08/24 History (Mirapex) paroxetine HCl 30 mg tablet 30 mg PO QDAY 11/25/23 08/08/24 History pregabalin 75 mg capsule 75 mg PO BID 11/25/23 08/08/24 History solifenacin 10 mg tablet 10 mg PO QDAY 11/25/23 08/08/24 History trazodone 100 mg tablet 100 mg PO .qhs 11/25/23 08/08/24 History baclofen 10 mg tablet 10 mg PO Q8H 02/03/24 08/08/24 History albuterol sulfate 2.5 mg/3 mL 2.5 mg continuous nebulization QID 06/06/24 08/09/24 History (0.083 %) solution for nebulization shortness of breath or wheezing furosemide 20 mg tablet 20 mg PO DAILY 06/28/24 08/08/24 History sodium chloride 0.9 % for 2.5 ml inhalation Q8H 06/28/24 08/08/24 History nebulization latanoprost 0.005 % eye drops 1 drp ophthalmic (eye) .HS 08/09/24 08/09/24 Hist ory Allergies Allergy/AdvReac Type Severity Reaction Status Date / Time No Known Drug Allergies Allergy Verified 06/28/24 19:48 Exam Constitutional Vital Signs, click to edit/add: Last Vital Signs Temp 97.9 F 08/09/24 08:00 Pulse 70 08/09/24 10:00 Resp 20 08/09/24 08:00 BP 126/68 08/09/24 08:00 Pulse Ox 92 L 08/09/24 08:00 O2 Del Method Nasal Cannula 08/09/24 08:00 O2 Flow Rate 5 08/09/24 08:00 Documenting provider has reviewed patient's vital signs: yes Exam limitations: altered mental status General appearance: cooperative Orientation/consciousness: Yes awake Other: Audible rhonchorous cough HENMT Other: Mallampati III Chest Other: Palpable rhonchi Respiratory Other: Patient has rhonchorous cough, diminished - worse in right base. Cardio Rate: regular rate Rhythm: regular rhythm GI Inspection: normal to inspection Neuro Sensorium/orientation: awake and alert Motor exam: no tremor noted and no fasciculations Results Laboratory Findings ABG, PT/INR, D-dimer: ABG ABG pH 7.425 (7.350-7.450) 08/08/24 20:54 ABG pCO2 48.5 mmHg (35.0-45.0) H 08/08/24 20:54 ABG pO2 55.0 mmHg (80.0-100.0) L* 08/08/24 20:54 ABG O2 Saturation 90.1 % 08/08/24 20:54 Abnormal lab findings: Abnormal Labs 08/08/24 08/08/24 08/09/24 17:00 20:54 05:31 WBC 12.5 H 13.2 H RBC 4.00 L Hgb 11.9 L MPV 9.4 L 9.3 L Neut % (Auto) 80.6 H Lymph % (Auto) 9.9 L Eos % (Auto) 0.7 L Neut # (Auto) 10.0 H [place] # (Auto) 1.0 H Abs Immat Gran (auto) 0.07 H Seg Neuts % (Manual) 91.0 H Lymphocytes % (Manual) 4.0 L Eosinophils % (Manual) 0.0 L Imm/Tot Granulo (auto) 0.6 H Neutrophils # (Manual) 12.01 H Lymphocytes # (Manual) 0.52 L Basophils # (Manual) 0.13 H ABG pCO2 48.5 H ABG pO2 55.0 L* ABG HCO3 31.8 H ABG Base Excess 7.4 H VBG pCO2 60.0 H Potassium 3.4 L 3.4 L BUN 6.0 L Creatinine 1.18 H 1.21 H Est GFR ( Amer) 55 L 54 L Est GFR (Non-Af Amer) 46 L 44 L Glucose 118 H 175 H AST 11 L ALT 10 L Albumin 2.6 L Assessment and Plan Assessment and Plan (1) Hospital-acquired pneumonia: Assessment and Plan: New RLL infiltrate, consistent with pneumonia. Mild leukocytosis present. Worsening respiratory status over the past several days. Agree with HCAP antibiotic coverage. (2) Acute and chronic respiratory failure with hypoxia: Assessment and Plan: Baseline O2 is 3L/min. On presentation yesterday (08/08/2024 @ 16:47), SpO2 was 87% on 3L/min. Continue O2, titrate to keep SpO2 >88%. (3) Restrictive lung disease: Assessment and Plan: Outpatient NIF (performed by md on 08/06/2024) = [id number]. Patient was ordered NIV outpatient and just received it yesterday. She will need to continue with this - she was instructed to have someone bring in her NIV and begin using it overnight & PRN dyspnea. No history of hypercapnia, but will check VBG in AM. (4) COPD exacerbation: Assessment and Plan: Developed COPD despite being lifelong non-smoker. She has had recurrent exacerbations in the past year secondary to inability to clear secretions associated with tracehobronchomalacia. Home treatment is Trelegy. Continue bronchodilators, steroids, pulmonary toilet. No plans for bronchoscopy at this time for clearance of secretions. 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 (6) Tracheobronchomalacia: Assessment and Plan: Severe tracheobronchomalacia secondary to critical illness myopathy associated with COVID infection summer 2022. Continue NIV, pulmonary toilet. (7) Mediastinal lymphadenopathy: Assessment and Plan: Increasing subcarinal lymph node on chest CT 08/08/2024 compared to 11/25/2023 & 04/18/2023. She just had bronchoscopy by Dr. Owens on 07/02/2024 with no gross evidence of endobronchial lesions. Though this is increasing in size, I feel that this is a reactive lymph node secondary to the recurrent infections contracted d/t the inability to clear secretions from the critical illness myopathy/tracheobronchomalacia contributing to the restrictive lung disease. I discussed this with the patient. Plan is for me to order a F/U chest CT with contrast to monitor in 3-6 months. (8) Morbid obesity: Assessment and Plan: Weight loss recommended, though her activity is limited d/t the critical illness myopathy.
[2024-08-09] MEDS: BUDESONIDE 0.5 MG/2 ML AMPULE NEB IH ×2 (11:01→23:11)
--- NOTE | 2024-08-09 11:09 | RESP.RT ---
titrated down from 5L
--- NOTE | 2024-08-09 12:36 | SWNOTE1 ---
SW met with pt to discuss dc needs. Pt's son in room as well. Pt lives with her other son at home. They help as needed. Pt has a walker, wheelchair, and 3 liters of home oxygen that she wears continuous and it is thru [employer]. Pt has [facility] coming in, only nursing at this time. Pt would like PT/OT added back on. Pt denies any further needs at this time. SW to follow as needed.
--- NOTE | 2024-08-09 12:38 | SWNOTE1 ---
Important Message from [employer] reviewed and discussed with patient. Pt. verbalized understanding and signed the form. Original given to patient and copy placed in patient?s chart.
--- NOTE | 2024-08-09 12:57 | SWNOTE1 ---
SW sent updates to [facility], including ED note and H&P. SW requested PT/OT be added back on.
[2024-08-09] MEDS: OXYCODONE HCL 5 MG TABLET PO (13:10)
[2024-08-09] MEDS: LACTATED RINGER'S SOLUTION 1,000 ML 125 ML IV ×2 (13:10→21:12)
[2024-08-09] MEDS: ACETAMINOPHEN 325 MG TABLET 650 MG PO (13:10)
[2024-08-09] MEDS: VANCOMYCIN HCL 1,000 MG in 0.9 % SODIUM CHLORIDE 250 ML 250 MG IV (14:13)
[2024-08-09] MEDS: SODIUM CHLORIDE 3% INHALATION 15 ML NEB 6 ML IH ×2 (15:32→23:11)
[2024-08-09] MEDS: PRAMIPEXOLE 0.125 MG TABLET 0.25 MG PO (21:12)
[2024-08-09] MEDS: TRAZODONE HCL 50 MG TABLET 100 MG PO (21:12)
--- NOTE | 2024-08-09 23:38 | RESP.RT ---
Placed pt on NIV home unit with 3L 02 bleed in, Sp02 92%.
[2024-08-10] VITALS (22 sets, daily range): BP systolic 141–181; BP diastolic 69–96; PULSE 65–94; TEMP 36.5–36.7; O2SAT 90–94
--- NOTE | 2024-08-10 00:15 | RESP.RT ---
Sp02 87%-88% on home NIV unit with 3L 02 bleed in. Titrated oxygen up to 4L and Spo2 increased up to 91%.
[2024-08-10] MEDS: IPRATROPIUM/ALBUTEROL SULFATE 3 ML AMPUL.NEB IH ×6 (02:58→23:15)
--- NOTE | 2024-08-10 02:58 | RESP.RT ---
Pt wearing NIV home unit with 4L 02 bleed in
[2024-08-10] MEDS: PIPERACILLIN SODIUM/TAZOBACTAM 3.375 GM in 0.9 % SODIUM CHLORIDE 50 ML IV ×3 (03:24→17:15)
[2024-08-10] MEDS: METHYLPREDNISOLONE SOD SUCC PF 40 MG/ML VIAL IVP ×3 (03:24→20:22)
[2024-08-10] MEDS: LACTATED RINGER'S SOLUTION 1,000 ML 125 ML IV ×3 (05:38→20:22)
[2024-08-10] MEDS: BACLOFEN 10 MG TABLET PO ×3 (05:38→21:50)
[2024-08-10 06:33] LABS: Basophils Percent Auto 0.1 % (0.2-2.0); Hematocrit 33.3 % (36.0-48.0); Hemoglobin 10.5 g/dL (12.0-16.0); Immature Granulocytes Abs Auto 0.04 10^3/uL (0.00-0.03); Immature Granulocytes Pct Auto 0.3 % (0.0-0.5); Lymphocytes Absolute Auto 0.4 10^3/uL (1.2-3.8); Lymphocytes Percent Auto 2.9 % (20.5-60.0); Mean Corpuscular HGB Conc 31.5 g/dL (29.9-35.2); Mean Corpuscular Hemoglobin 29.5 pg (26.7-34.0); Mean Corpuscular Volume 93.5 fL (81.0-99.0); Mean Platelet Volume 9.3 fL (9.5-13.5); Monocytes Absolute Auto 0.5 10^3/uL (0.3-0.8); Monocytes Percent Auto 3.3 % (1.7-12.0); Neutrophils Absolute Auto 13.7 10^3/uL (1.4-6.5); Neutrophils Percent Auto 93.4 % (43.0-75.0); Platelet Count 231 10^3/uL (150-450); Red Blood Count 3.56 10^6/uL (4.20-5.40); White Blood Count 14.7 10^3/uL (4.0-11.0)
[2024-08-10 06:37] LABS: PCO2 VBG 52.9 mmHg (40.0-52.0); pH VBG 7.394 (7.330-7.430)
[2024-08-10] MEDS: SODIUM CHLORIDE 3% INHALATION 15 ML NEB 6 ML IH ×3 (06:55→23:15)
[2024-08-10 07:03] LABS: Alanine Aminotransferase 10 U/L (14-59); Albumin Globulin Ratio 0.6; Albumin Level 2.2 g/dL (3.4-5.0); Alkaline Phosphatase 72 U/L (46-116); Anion Gap 12.1; Aspartate Amino Transferase 10 U/L (15-37); BUN Creatinine Ratio 13.8; Bilirubin Total 0.2 mg/dL (0.2-1.0); Calcium 8.1 mg/dL (8.5-10.1); Carbon Dioxide 29.6 mmol/L (21.0-32.0); Chloride 102 mmol/L (98-107); Estimated GFR (African America >60 (>=60 mL/min/1.73m^2); Estimated GFR (Non-African Ame 59 (>=60 mL/min/1.73m^2); Globulin 3.7 g/dL; Glucose 187 mg/dL (74-106); Potassium 3.7 mmol/L (3.5-5.1); Sodium 140 mmol/L (136-145); Total Protein 5.9 g/dL (6.4-8.2)
[2024-08-10] MEDS: ENOXAPARIN SODIUM 40 MG/0.4 ML SYRINGE SUBQ (08:32)
[2024-08-10] MEDS: MONTELUKAST SODIUM 10 MG TABLET PO (08:32)
[2024-08-10] MEDS: GUAIFENESIN 600 MG TAB.ER.12H PO ×2 (08:32→20:22)
[2024-08-10] MEDS: PREGABALIN 75 MG CAPSULE PO ×2 (08:32→20:22)
[2024-08-10] MEDS: SOLIFENACIN SUCCINATE 10 MG TABLET PO (08:33)
[2024-08-10] MEDS: OMEPRAZOLE 20 MG CAPSULE.DR PO ×2 (08:33→20:22)
[2024-08-10] MEDS: PAROXETINE HCL 20 MG TABLET 30 MG PO (08:33)
[2024-08-10] MEDS: MAGNESIUM OXIDE 400 MG TABLET PO (08:33)
[2024-08-10] MEDS: ACETAMINOPHEN 325 MG TABLET 650 MG PO ×2 (10:05→20:22)
--- NOTE | 2024-08-10 10:14 | PT.DAILY ---
Physical Therapy Daily Note PT Daily Note/Assess Start: 08/10/24 09:46 Freq: Status: Active Protocol: Document 08/10/24 09:52 [id number] (Rec: 08/10/24 10:14 [id number]) Physical Therapy Daily Note/Assessment Time In/Time Out Time In 08:03 Time Out 08:26 Pain In Pain Level 0 Pain Out Pain Level 0 Subjective Subjective Patient received in bed, no alarm. States she would like to use BSC before working with physical therapy. Patient on 5L nc O2. Therapeutic Exercise Time Therapeutic Exercise Minutes (minutes) 8 Therapeutic Exercise Units 1 Therapeutic Exercise Treatment Therapeutic Exercise Treatment Patient performed supine PRATEEK LE ther ex: ankle pumps, quad/ glut sets, SAQ, HIP ABD x 10 reps to increase LE strength for ADL's and gait. Therapeutic Activity Time Therapeutic Activity Minutes (minutes) 15 Therapeutic Activity Units 1 Therapeutic Activity Treatment Bed Mobility Ability Contact Guard Assist Chair Transfer Ability Contact Guard Assist Therapeutic Activity Comments Bed mobility to R side of bed with use of bed rail is CGA +1 . Patient with increased labored breathing with exertion and required a moment to sit EOB. Patient sits EOB with 1 UE support on bed rail . Transfer: sit>stand>pivot to [facility] with CGA +1. Patient utilized BSC and is able to complete self pericare indpendently. Patient transferred from BSC>standing> pivot to R onto bed. Patient again required moment of seated therapeutic rest before transferring into bed. Patient able to transfer into bed with MIN A for R LE management. [facility] and nursing notified of patient placement. Total Physical Therapy Time Total Therapy Minutes 23 Total Physical Therapy Units 2 Summary Daily Note Summary Patient demonstrates increase functional mobility with transfers to BSC and bed mobility. Patient experiences increased labored breathing with exertion. Patient would benefit from HH upon DC to address functional mobility deficits.
[2024-08-10] MEDS: BUDESONIDE 0.5 MG/2 ML AMPULE NEB IH ×2 (11:12→23:15)
--- NOTE | 2024-08-10 11:20 | PM.PLPN ---
Progress Note: A&P Assessment and Plan (1) Hospital-acquired pneumonia: Assessment and Plan: Patient seems to responding well to treatment at this current time. No change in antibiotics appear necessary for now. (2) Acute and chronic respiratory failure with hypoxia: Assessment and Plan: Continue with supplemental oxygen?baseline is 3L/min. (3) Restrictive lung disease: Assessment and Plan: Associated with underlying critical illness myopathy. Patient wore NIV for the first time last night. She voiced a positive response to therapy. She stated that she had better night sleep. VBG was reviewed and does not appear grossly changed. She is doing well. No change to settings at this current time. She was educated that she can use this as needed during the day as well as during nighttime. (4) COPD exacerbation: Assessment and Plan: She is responding to treatment. Still has difficulty expectorating. Ordered vest therapy along with her saline nebs. 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 (6) Tracheobronchomalacia: Assessment and Plan: Severe tracheobronchomalacia secondary to critical illness myopathy associated with COVID infection summer 2022. Continue with NIV treatment, pulmonary toilet. (7) Mediastinal lymphadenopathy: Assessment and Plan: Increasing subcarinal lymph node on chest CT 08/08/2024 compared to 11/25/2023 & 04/18/2023. My opinion is that this is most likely reactive given her recurrent infections/pneumonia. This was discussed with the patient yesterday and the plan will be to follow this outpatient. (8) Morbid obesity: Assessment and Plan: Weight loss. Subjective Subjective Interval history: States she is feeling a little bit better. She does feel tired is having some difficulty expectorating, but overall improved after using the NIV for the first time last night. She said that this has really helped improve her sleep quality and feels more refreshed this morning. She still feels weak and has difficulty ambulating. No new issues overnight. VBG appears acceptable. Exam Constitutional Vital Signs, click to edit/add: Last Vital Signs Temp 97.9 F 08/10/24 03:31 Pulse 79 08/10/24 10:00 Resp 18 08/10/24 03:31 BP 141/72 08/10/24 03:31 Pulse Ox 91 L 08/10/24 11:16 O2 Del Method Nasal Cannula 08/10/24 11:16 O2 Flow Rate 4 08/10/24 07:01 Documenting provider has reviewed patient's vital signs: yes Common normals: alert Exam limitations: no altered mental status General appearance: cooperative Orientation/consciousness: Yes awake HENMT Other: Mallampati III Chest Other: Palpable rhonchi Respiratory Other: Improved air movement yesterday. Still continues to have rhonchi, but does not sound is moist. I do not hear as much audible rhonchi across the room as yesterday. Cardio Rate: regular rate Rhythm: regular rhythm GI Inspection: normal to inspection Neuro Sensorium/orientation: awake and alert Motor exam: no tremor noted and no fasciculations
[2024-08-10] MEDS: VANCOMYCIN HCL 1,000 MG in 0.9 % SODIUM CHLORIDE 250 ML 125 MG IV (13:54)
--- NOTE | 2024-08-10 14:43 | P.PN_ITS ---
Progress Note: Subjective Subjective Interval history: Patient unchanged this am. Continues to have SOB and tightness with minimal exertion. Remains dyspneic with speech. Mild chest tightness but no pain. Decreased appetitie and no emesis or diarrhea. Afebrile. Difficulty with ambulation due to symptoms. Exam Constitutional Vital Signs, click to edit/add: Last Vital Signs Temp 97.7 F 08/10/24 12:07 Pulse 80 08/10/24 13:53 Resp 22 H 08/10/24 12:07 BP 144/69 H 08/10/24 12:07 Pulse Ox 90 L 08/10/24 12:07 O2 Del Method Nasal Cannula 08/10/24 12:07 O2 Flow Rate 3 08/10/24 12:07 Documenting provider has reviewed patient's vital signs: yes Common normals: no apparent distress, oriented x3 and alert HENMT Common normals: normocephalic Eye Common normals: PERRL and EOMs intact bilaterally Respiratory Common normals: normal respiratory effort Auscultation: diminished lung sounds Cardio Common normals: regular rate, regular rhythm, no gallops, no murmurs and no rub GI Common normals: Normal to inspection, nondistended, normoactive bowel sounds present and non-tender Extremity Common normals: no pedal edema Progress Note: Objective Labs Labs: Short CBC 08/10/24 Range/Units 05:34 WBC 14.7 H (4.0-11.0) 10^3/uL Hgb 10.5 L (12.0-16.0) g/dL Hct 33.3 L (36.0-48.0) % Plt Count 231 (150-450) 10^3/uL BMP 08/10/24 05:34 Sodium 140 Potassium 3.7 Chloride 102 Carbon Dioxide 29.6 BUN 13.0 Creatinine 0.94 Glucose 187 H Calcium 8.1 L Liver Function 08/10/24 Range/Units 05:34 Total Bilirubin 0.2 (0.2-1.0) mg/dL AST 10 L (15-37) U/L ALT 10 L (14-59) U/L Alkaline Phosphatase 72 (46-116) U/L Albumin 2.2 L (3.4-5.0) g/dL Progress Note: A&P Assessment and Plan (1) Hospital-acquired pneumonia: (2) COPD exacerbation: (3) Acute and chronic respiratory failure with hypoxia: (4) Restrictive lung disease: (5) Tracheobronchomalacia: (6) Hypertension: Qualifiers: Hypertension type: primary hypertension Qualified Code(s): I10 - Essential (primary) hypertension (7) Chronic heart failure with preserved ejection fraction (HFpEF): (8) Mediastinal lymphadenopathy: (9) CAD (coronary artery disease): Qualifiers: Coronary Disease-Associated Artery/Lesion type: unspecified vessel or lesion type [place] vs. transplanted heart: unspecified whether [place] or transplanted heart Associated angina: without angina Qualified Code(s): I25.10 - Atherosclerotic heart disease of [place] coronary artery without angina pectoris Plan Patient slow to improve and continue antibiotics, steroids, and breathing treatments. Wean O2 as tolerated. Increase ambulation.
--- NOTE | 2024-08-10 19:21 | RESP.RT ---
PEP done instead of VEST. No vest hoses are available at this time.
[2024-08-10] MEDS: HYDRALAZINE HCL 20 MG/ML VIAL 10 MG IVP (20:21)
[2024-08-10] MEDS: PRAMIPEXOLE 0.125 MG TABLET 0.25 MG PO (20:22)
[2024-08-10] MEDS: TRAZODONE HCL 50 MG TABLET 100 MG PO (21:50)
[2024-08-10] MEDS: OXYCODONE HCL 5 MG TABLET PO (22:00)
[2024-08-11] VITALS (23 sets, daily range): BP systolic 102–158; BP diastolic 56–78; PULSE 49–79; TEMP 36.6–36.7; O2SAT 90–95
--- NOTE | 2024-08-11 00:10 | RESP.RT ---
Placed pt on NIV home unit with 4L 02 bleed in for the night. Spo2 94%.
[2024-08-11] MEDS: PIPERACILLIN SODIUM/TAZOBACTAM 3.375 GM in 0.9 % SODIUM CHLORIDE 50 ML IV ×3 (01:04→17:12)
[2024-08-11] MEDS: IPRATROPIUM/ALBUTEROL SULFATE 3 ML AMPUL.NEB IH ×6 (03:32→22:41)
--- NOTE | 2024-08-11 03:32 | RESP.RT ---
Pt wearing home NIV unit with 4L 02 bleed in, titrated 02 down to 3L
--- NOTE | 2024-08-11 03:45 | RESP.RT ---
Pt wearing home NIV unit with 3L 02 bleed in
[2024-08-11] MEDS: METHYLPREDNISOLONE SOD SUCC PF 40 MG/ML VIAL IVP ×3 (04:37→21:09)
[2024-08-11] MEDS: BACLOFEN 10 MG TABLET PO ×3 (05:27→21:08)
[2024-08-11] MEDS: LACTATED RINGER'S SOLUTION 1,000 ML 125 ML IV ×2 (05:27→13:50)
[2024-08-11 06:34] LABS: Basophils Percent Auto 0.1 % (0.2-2.0); Hemoglobin 10.4 g/dL (12.0-16.0); Immature Granulocytes Abs Auto 0.19 10^3/uL (0.00-0.03); Immature Granulocytes Pct Auto 1.8 % (0.0-0.5); Lymphocytes Absolute Auto 0.6 10^3/uL (1.2-3.8); Mean Corpuscular HGB Conc 31.5 g/dL (29.9-35.2); Mean Corpuscular Hemoglobin 29.8 pg (26.7-34.0); Mean Corpuscular Volume 94.6 fL (81.0-99.0); Mean Platelet Volume 9.5 fL (9.5-13.5); Monocytes Absolute Auto 0.4 10^3/uL (0.3-0.8); Monocytes Percent Auto 4.1 % (1.7-12.0); Neutrophils Absolute Auto 9.1 10^3/uL (1.4-6.5); Platelet Count 212 10^3/uL (150-450); Red Blood Count 3.49 10^6/uL (4.20-5.40); Red Cell Distribution Width 13.2 % (11.0-15.0); White Blood Count 10.4 10^3/uL (4.0-11.0)
[2024-08-11 06:54] LABS: Alanine Aminotransferase 11 U/L (14-59); Albumin Globulin Ratio 0.6; Albumin Level 2.3 g/dL (3.4-5.0); Alkaline Phosphatase 76 U/L (46-116); Aspartate Amino Transferase 12 U/L (15-37); BUN Creatinine Ratio 14.9; Bilirubin Total 0.2 mg/dL (0.2-1.0); Calcium 8.4 mg/dL (8.5-10.1); Chloride 103 mmol/L (98-107); Estimated GFR (African America >60 (>=60 mL/min/1.73m^2); Estimated GFR (Non-African Ame 55 (>=60 mL/min/1.73m^2); Globulin 3.6 g/dL; Glucose 173 mg/dL (74-106); Sodium 140 mmol/L (136-145); Total Protein 5.9 g/dL (6.4-8.2)
[2024-08-11] MEDS: SODIUM CHLORIDE 3% INHALATION 15 ML NEB 6 ML IH ×3 (07:58→22:41)
[2024-08-11] MEDS: OMEPRAZOLE 20 MG CAPSULE.DR PO ×2 (08:50→21:09)
[2024-08-11] MEDS: PAROXETINE HCL 20 MG TABLET 30 MG PO (08:50)
[2024-08-11] MEDS: GUAIFENESIN 600 MG TAB.ER.12H PO ×2 (08:50→21:09)
[2024-08-11] MEDS: PREGABALIN 75 MG CAPSULE PO ×2 (08:50→21:08)
[2024-08-11] MEDS: ENOXAPARIN SODIUM 40 MG/0.4 ML SYRINGE SUBQ (08:50)
[2024-08-11] MEDS: MAGNESIUM OXIDE 400 MG TABLET PO (08:50)
[2024-08-11] MEDS: MONTELUKAST SODIUM 10 MG TABLET PO (08:50)
[2024-08-11] MEDS: SOLIFENACIN SUCCINATE 10 MG TABLET PO (08:50)
[2024-08-11] MEDS: BUDESONIDE 0.5 MG/2 ML AMPULE NEB IH ×2 (11:37→22:42)
--- NOTE | 2024-08-11 13:24 | P.PLPN_ITS ---
Progress Note: A&P Assessment and Plan (1) Hospital-acquired pneumonia: Assessment and Plan: Clinically improving, but now having some diarrhea. (2) COPD exacerbation: Assessment and Plan: Continue pulmonary toilet. (3) Acute and chronic respiratory failure with hypoxia: Assessment and Plan: Acute hypoxemia resolved, @ baseline 3L/min. (4) Restrictive lung disease: Assessment and Plan: Continue NIV @ HS & PRN Naps (5) Tracheobronchomalacia: Assessment and Plan: Severe tracheobronchomalacia secondary to critical illness myopathy associated with COVID infection summer 2022. Continue with NIV treatment, pulmonary jamir let. (6) Mediastinal lymphadenopathy: Assessment and Plan: Increasing subcarinal lymph node on chest CT 08/08/2024 compared to 11/25/2023 & 04/18/2023. My opinion is that this is most likely reactive given her recurrent infections/pneumonia. This was discussed with the patient yesterday and the plan will be to follow this outpatient. 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 (8) Morbid obesity: Assessment and Plan: Weight loss. Plan Patient should be acceptable for discharge tomorrow 08/12/2024. Subjective Subjective Interval history: Patient states she slept well again with NIV - she likes it and has no issues with the pressures. Still has chest congestion and difficulty expectorating, but better than on admission. Denies any fevers, chills, or sweats. She is now complaining of diarrhea. Exam Constitutional Vital Signs, click to edit/add: Last Vital Signs Temp 97.9 F 08/11/24 04:41 Pulse 66 08/11/24 11:52 Resp 16 08/11/24 04:41 BP 157/73 H 08/11/24 04:41 Pulse Ox 94 L 08/11/24 11:37 O2 Del Method Nasal Cannula 08/11/24 11:37 O2 Flow Rate 3 08/11/24 11:37 Documenting provider has reviewed patient's vital signs: yes Common normals: no apparent distress General appearance: cooperative Orientation/consciousness: Yes awake HENMT Other: Mallampati III Chest Other: Palpable rhonchi Respiratory Other: Good air movement with diffuse rhonchi. Cardio Rate: regular rate Rhythm: regular rhythm GI Inspection: normal to inspection Neuro Sensorium/orientation: awake and alert Motor exam: no tremor noted and no fasciculations
[2024-08-11] MEDS: VANCOMYCIN HCL 1,000 MG in 0.9 % SODIUM CHLORIDE 250 ML 125 MG IV (13:50)
--- NOTE | 2024-08-11 14:07 | P.PN_ITS ---
Progress Note: Subjective Subjective Interval history: Patient minimally improved this am. Continues to have SOB and tightness with minimal exertion. Mild dyspnea with speech. Mild chest tightness but no pain. Using CPAP at night and helps. Decreased appetite and no emesis or diarrhea. Afebrile. Difficulty with ambulation due to symptoms. Exam Constitutional Vital Signs, click to edit/add: Last Vital Signs Temp 97.9 F 08/11/24 04:41 Pulse 66 08/11/24 11:52 Resp 16 08/11/24 04:41 BP 157/73 H 08/11/24 04:41 Pulse Ox 94 L 08/11/24 11:37 O2 Del Method Nasal Cannula 08/11/24 11:37 O2 Flow Rate 3 08/11/24 11:37 Documenting provider has reviewed patient's vital signs: yes Common normals: no apparent distress, oriented x3 and alert HENMT Common normals: normocephalic Eye Common normals: PERRL and EOMs intact bilaterally Respiratory Auscultation: diminished lung sounds Cardio Common normals: regular rate, regular rhythm, no gallops, no murmurs and no rub GI Common normals: Normal to inspection, nondistended, normoactive bowel sounds present and non-tender Extremity Common normals: no pedal edema Progress Note: Objective Labs Labs: Short CBC 08/11/24 Range/Units 06:04 WBC 10.4 (4.0-11.0) 10^3/uL Hgb 10.4 L (12.0-16.0) g/dL Hct 33.0 L (36.0-48.0) % Plt Count 212 (150-450) 10^3/uL BMP 08/11/24 06:04 Sodium 140 Potassium 4.0 Chloride 103 Carbon Dioxide 30.0 BUN 15.0 Creatinine 1.01 Glucose 173 H Calcium 8.4 L Liver Function 08/11/24 Range/Units 06:04 Total Bilirubin 0.2 (0.2-1.0) mg/dL AST 12 L (15-37) U/L ALT 11 L (14-59) U/L Alkaline Phosphatase 76 (46-116) U/L Albumin 2.3 L (3.4-5.0) g/dL Progress Note: A&P Assessment and Plan (1) Hospital-acquired pneumonia: (2) COPD exacerbation: (3) Acute and chronic respiratory failure with hypoxia: (4) Restrictive lung disease: (5) Tracheobronchomalacia: (6) Hypertension: Qualifiers: Hypertension type: primary hypertension Qualified Code(s): I10 - Essential (primary) hypertension (7) Chronic heart failure with preserved ejection fraction (HFpEF): (8) Mediastinal lymphadenopathy: (9) CAD (coronary artery disease): Assessment and Plan: Continues to slowly improve and closer to baseline. Discussed discharge and feels like still having too much SOB with exertion. Increase ambulation. Continue steroids, antibiotics, and breatghing treatments. Likely will be ready for discharge in am. Qualifiers: Coronary Disease-Associated Artery/Lesion type: unspecified vessel or lesion type [place] vs. transplanted heart: unspecified whether [place] or transplanted heart Associated angina: without angina Qualified Code(s): I25.10 - Atherosclerotic heart disease of [place] coronary artery without angina pectoris
[2024-08-11] MEDS: PRAMIPEXOLE 0.125 MG TABLET 0.25 MG PO (21:08)
[2024-08-11] MEDS: TRAZODONE HCL 50 MG TABLET 100 MG PO (21:09)
[2024-08-12] VITALS (9 sets, daily range): BP systolic 139–161; BP diastolic 71–78; PULSE 56–72; TEMP 36.3–36.8; O2SAT 90–94
[2024-08-12] MEDS: PIPERACILLIN SODIUM/TAZOBACTAM 3.375 GM in 0.9 % SODIUM CHLORIDE 50 ML IV ×2 (01:05→08:51)
[2024-08-12] MEDS: IPRATROPIUM/ALBUTEROL SULFATE 3 ML AMPUL.NEB IH ×2 (03:57→07:43)
[2024-08-12] MEDS: METHYLPREDNISOLONE SOD SUCC PF 40 MG/ML VIAL IVP (05:09)
[2024-08-12] MEDS: BACLOFEN 10 MG TABLET PO (05:09)
--- NOTE | 2024-08-12 06:00 | XR_ITS ---
The [address] [address] Patient Name: JHONATAN MONTOYA MRN: [id number] date: 1955 Sex: F Assigned Patient Location: [place] Current Patient Location: [place] Accession/Order Number: [id number] Exam Date: 08/12/2024 05:40 Report Date: 08/12/2024 07:05 At the request of: SHAIKH LUCITA Procedure: XR chest 1V EXAM: XR chest 1V HISTORY: SOB COMPARISON: 08/08/2024 TECHNIQUE: AP FINDINGS: LUNGS: Mild right basilar infiltrate, atelectasis or scar is favored VASCULATURE: Mildly increased pulmonary vasculature. PLEURA: No pneumothorax, effusion, or pleural thickening. CARDIAC: No cardiomegaly or cardiac silhouette abnormality. MEDIASTINUM: No visible mass or adenopathy. BONES: No fracture or visible bone lesion. OTHER: Negative. XR/XR chest 1V IMPRESSION: Right basilar atelectasis Mild pulmonary vascular congestion Electronically authenticated by: BRITTANY VANESSA Date: 08/12/2024 07:05
[2024-08-12 06:06] LABS: Hematocrit 34.6 % (36.0-48.0); Hemoglobin 10.9 g/dL (12.0-16.0); Mean Corpuscular HGB Conc 31.5 g/dL (29.9-35.2); Mean Corpuscular Hemoglobin 29.3 pg (26.7-34.0); Mean Platelet Volume 9.4 fL (9.5-13.5); Platelet Count 248 10^3/uL (150-450); Red Blood Count 3.72 10^6/uL (4.20-5.40); Red Cell Distribution Width 12.9 % (11.0-15.0); White Blood Count 7.9 10^3/uL (4.0-11.0)
[2024-08-12 06:19] LABS: Alanine Aminotransferase 14 U/L (14-59); Albumin Globulin Ratio 0.7; Albumin Level 2.6 g/dL (3.4-5.0); Alkaline Phosphatase 75 U/L (46-116); Anion Gap 7.8; Aspartate Amino Transferase 14 U/L (15-37); Bilirubin Total 0.3 mg/dL (0.2-1.0); Calcium 8.9 mg/dL (8.5-10.1); Chloride 101 mmol/L (98-107); Estimated GFR (African America 58 (>=60 mL/min/1.73m^2); Estimated GFR (Non-African Ame 48 (>=60 mL/min/1.73m^2); Globulin 3.7 g/dL; Glucose 163 mg/dL (74-106); Potassium 3.8 mmol/L (3.5-5.1); Sodium 137 mmol/L (136-145); Total Protein 6.3 g/dL (6.4-8.2)
[2024-08-12 06:39] LABS: Lymphocytes Absolute Manual 0.71 10^3/uL (1.20-3.80); Monocytes Absolute Manual 0.39 10^3/uL (0.30-0.80); Segmented Neut Absolute Manual 6.79 10^3/uL (1.4-6.5)
[2024-08-12] MEDS: SODIUM CHLORIDE 3% INHALATION 15 ML NEB 6 ML IH (07:43)
[2024-08-12] MEDS: PAROXETINE HCL 20 MG TABLET 30 MG PO (08:46)
[2024-08-12] MEDS: SOLIFENACIN SUCCINATE 10 MG TABLET PO (08:46)
[2024-08-12] MEDS: ENOXAPARIN SODIUM 40 MG/0.4 ML SYRINGE SUBQ (08:46)
[2024-08-12] MEDS: OMEPRAZOLE 20 MG CAPSULE.DR PO (08:46)
[2024-08-12] MEDS: MONTELUKAST SODIUM 10 MG TABLET PO (08:47)
[2024-08-12] MEDS: PREGABALIN 75 MG CAPSULE PO (08:47)
[2024-08-12] MEDS: GUAIFENESIN 600 MG TAB.ER.12H PO (08:47)
[2024-08-12] MEDS: MAGNESIUM OXIDE 400 MG TABLET PO (08:47)
[2024-08-12] MEDS: FUROSEMIDE 40 MG/4 ML VIAL IVP (08:57)
--- NOTE | 2024-08-12 09:45 | CM.NOTE ---
Rounds made with Dr. Ohara, pt oxygen at 3L NC (pt's baseline). Pt verbalizes her breathing is back to baseline. Pt will discharge to home today with [facility]. Pt has [facility] for oxygen. No other discharge needs identified.
--- NOTE | 2024-08-12 10:05 | PM.DS1 ---
DS: Providers Provider Date of admission: 08/08/24 21:49 Primary care physician: MAE BLANC Admitting clinician: Shaikh Lev Attending physician on admission: Shaikh Lev Consults: 08/09/24 07:22 Consult to Pulmonology Routine Consulting Provider: Corbin Lopes Reason for consultation: copd exacerbation/asthma exacerbation 08/09/24 09:49 Occupational Therapy Eval and Treat Routine Reason for consultation: Ambulatory dysfunction/weakness Physical Therapy Eval and Treat Routine Reason for consultation: Ambulatory dysfunction/weakness Attending physician on discharge: Shaikh Lev Discharging clinician: Shaikh Lev Anticipated date of discharge: 08/12/24 DS: Diagnosis Discharge Diagnosis (1) Hospital-acquired pneumonia: (2) COPD exacerbation: (3) Acute and chronic respiratory failure with hypoxia: (4) Restrictive lung disease: (5) Tracheobronchomalacia: (6) Hypertension: Qualifiers: Hypertension type: primary hypertension Qualified Code(s): I10 - Essential (primary) hypertension (7) Chronic heart failure with preserved ejection fraction (HFpEF): (8) Mediastinal lymphadenopathy: (9) CAD (coronary artery disease): Qualifiers: Associated angina: without angina Coronary Disease-Associated Artery/Lesion type: unspecified vessel or lesion type [place] vs. transplanted heart: unspecified whether [place] or transplanted heart Qualified Code(s): I25.10 - Atherosclerotic heart disease of [place] coronary artery without angina pectoris DS: Summary Hospital Course Hospital Course: 69-year-old female with chronic respiratory failure with hypoxia on 3 L oxygen, severe COPD/asthma with bronchiectasis presented to ER with 2 to 3 days of worsening shortness of breath, increased cough with sputum along with generalized weakness/poor oral intake. In ER patient was found to be hypoxic with pulse ox in 87% along with tachypnea and increased work of breathing. She had a CTA chest to rule out PE that did not reveal any pulmonary embolism but was noticeable for right lower lobe infiltrate. Patient was started on IV vancomycin/Zosyn for hospital-acquired pneumonia, IV Solu-Medrol and inhaled bronchodilators. Patient also received saline nebs with guaifenesin to help with chest congestion and mucus. Patient was also seen by pulmonology during the course of admission. Patient clinically improved gradually during the course of admission and was weaned down to 3 L oxygen via nasal cannula. She is feeling much better today and has no active complaints to offer. Patient is medically stable for discharge. Her cultures are negative. She will be discharged on oral Augmentin/Azithromycin and prednisone taper. Patient will need close follow-up with PCP in 1 to 2 weeks along with outpatient pulmonology follow-up in 2 to 3 weeks. Patient was instructed to return to ED if she has worsening cough, shortness of breath, hypoxia and wheezing. Status at Discharge Functional status at discharge: independent ambulation Overall status at discharge: patient is back to baseline Time Spent with Patient Time attestation: Total time spent providing and/or coordinating discharge services: Time spent: greater than 30 minutes Exam Constitutional Vital Signs, click to edit/add: Last Vital Signs Temp 98.2 F 08/12/24 08:18 Pulse 70 08/12/24 09:49 Resp 22 H 08/12/24 08:18 BP 161/78 H 08/12/24 08:18 Pulse Ox 90 L 08/12/24 08:18 O2 Del Method Nasal Cannula 08/12/24 08:18 O2 Flow Rate 3 08/12/24 08:18 General appearance: cooperative, comfortable, ill appearing and frail appearing Respiratory Other: Coarse breath sounds. No wheezing. Normal RR, no resp distress Cardio Common normals: regular rate, regular rhythm, S1 normal heart sound and S2 normal heart sound Extremity Common normals: normal to inspection and full ROM Neuro Common normals: oriented x3, moves all extremities, no focal motor deficits and no sensory deficits noted Sensorium/orientation: lethargic Psych Common normals: mental status grossly normal, thought process normal, denies homicidal ideation and denies suicidal ideation DS: Data Data Completed and Pending Labs on day of discharge: Labs from last 24 hours 08/12/24 05:48 WBC 7.9 RBC 3.72 L Hgb 10.9 L Hct 34.6 L MCV 93.0 MCH 29.3 MCHC 31.5 RDW 12.9 Plt Count 248 MPV 9.4 L Seg Neuts % (Manual) 86.0 H Lymphocytes % (Manual) 9.0 L Monocytes % (Manual) 5.0 Eosinophils % (Manual) 0.0 L Basophils % (Manual) 0.0 L Neutrophils # (Manual) 6.79 H Lymphocytes # (Manual) 0.71 L Monocytes # (Manual) 0.39 Eosinophils # (Manual) 0.00 Basophils # (Manual) 0.00 Sodium 137 Potassium 3.8 Chloride 101 Carbon Dioxide 32.0 Anion Gap 7.8 BUN 17.0 Creatinine 1.13 H Est GFR ( Amer) 58 L Est GFR (Non-Af Amer) 48 L BUN/Creatinine Ratio 15.0 Glucose 163 H Calcium 8.9 Total Bilirubin 0.3 AST 14 L ALT 14 Alkaline Phosphatase 75 Total Protein 6.3 L Albumin 2.6 L Globulin 3.7 Albumin/Globulin Ratio 0.7 Discharge Plan Discharge Disposition: Home, Self-Care Condition: Fair Discharge Medications: New azithromycin [Zithromax] 250 mg tablet 250 mg PO DAILY 4 Days Qty: 4 0RF Rx Instructions: start on day 2 of therapy prednisone 10 mg tablets,dose pack 10 mg PO DAILY Qty: 39 0RF Rx Instructions: 6 PO daily x 3 days, then 4 PO daily x 3 days, then 2 PO daily x 3 days, then 1 PO daily x 3 days amoxicillin-pot clavulanate 875-125 mg tablet 1 tab PO Q12H 14 Days Qty: 28 0RF Continued albuterol sulfate 2.5 mg /3 mL (0.083 %) solution for nebulization 2.5 mg continuous nebulization QID furosemide 20 mg tablet 20 mg PO DAILY sodium chloride 0.9 % solution for nebulization 2.5 ml INHALATION Q8H latanoprost 0.005 % drops 1 drp OPHTHALMIC (EYE) .HS magnesium oxide 400 mg (241.3 mg magnesium) tablet 400 mg PO DAILY Rx Instructions: WITH FOOD omeprazole 20 mg capsule,delayed release(DR/EC) 20 mg PO BID Trelegy Ellipta 200-62.5-25 mcg blister with device 1 inh INHALATION Q24H pramipexole [Mirapex] 0.25 mg tablet 0.25 mg PO QPM Rx Instructions: administer 2 - 3 hours before bedtime montelukast 10 mg tablet 10 mg PO DAILY paroxetine HCl 30 mg tablet 30 mg PO QDAY pregabalin 75 mg capsule 75 mg PO BID solifenacin 10 mg tablet 10 mg PO QDAY trazodone 100 mg tablet 100 mg PO .qhs baclofen 10 mg tablet 10 mg PO Q8H Activity: resume usual activities as tolerated Diet: advance to your usual diet Print Language: [place] Patient Instructions: Prednisone (By mouth), Amoxicillin (By mouth), Azithromycin (By mouth), COPD (Chronic Obstructive Pulmonary Disease) (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 Ohara requests you schedule a follow up appt. with Dr. Lopes for 2 weeks. [phone]
--- NOTE | 2024-08-12 10:44 | REH.PTDLY ---
Physical Therapy Daily Note PT Daily Note/Assess Start: 08/10/24 09:46 Freq: Status: Active Protocol: Document 08/12/24 10:20 LUPILLO (Rec: 08/12/24 10:44 LUPILLO [id number]) Visit Not Completed Visit Not Completed Due to: Pt refusing Other Reason Visit Not Completed Pt declines PT this morning as she is being DC as soon as IV is done. Family in room waiting for DC as well. Physical Therapy Daily Note/Assessment Time In 10:20 Time Out 10:22
--- NOTE | 2024-08-12 12:11 | SWNOTE1 ---
JAZMIN faxed over dc med rec, CRF, dc summary, progress note from 08/11/24 and PT note from 08/10/24 to [facility]. Pt is resuming [facility].
--- NOTE | 2024-08-13 12:44 | CM.DCFOLLOWU ---
Person spoke with: Diana How are you feeling? Getting better everyday How is your pain? No pain Did you understand your discharge instructions? Yes Do you have any questions about your discharge instructions? No Were you given any prescriptions at discharge? Yes Were you able to get your prescriptions filled? Yes Do you understand how to take your medications as ordered? Yes Do you have any questions about your follow up appointment and do you plan to keep your follow up appointment? Appts scheduled with PCP and Samsa and plan on going to f/u Is there anything else that you would like to discuss? No Questions/Comments/Concerns/Other:
== END 2024-08-12 11:58 | disposition home or self-care (01) | DRG 193 ==
LOC: ER 21:11 → MS 21:52
PROVIDERS: Emergency Medicine; Internal Medicine; Registered Nurse; Admitting Provider Internal Medicine; Emergency Provider Emergency Medicine; Visit Provider Internal Medicine
DX: J18.9 Pneumonia, unspecified organism (principal); J96.21 Acute and chronic respiratory failure with hypoxia; I50.32 Chronic diastolic (congestive) heart failure; J44.1 Chronic obstructive pulmonary disease with (acute) exacerbation; J44.0 Chronic obstructive pulmonary disease with (acute) lower respiratory infection; J47.0 Bronchiectasis with acute lower respiratory infection; I11.0 Hypertensive heart disease with heart failure; J98.09 Other diseases of bronchus, not elsewhere classified; I25.10 Atherosclerotic heart disease of native coronary artery without angina pectoris; F32.A Depression, unspecified; M48.062 Spinal stenosis, lumbar region with neurogenic claudication; R59.0 Localized enlarged lymph nodes; Z99.81 Dependence on supplemental oxygen; Z79.51 Long term (current) use of inhaled steroids; Z79.899 Other long term (current) drug therapy
CPT/HCPCS: 36415; 36600; 71045; 71275; 80048; 80053; 80202; 81001; 82550; 82800; 82805; 83874; 84484; 85007; 85025; 85027; 87040; 87070; 87804; 87811; 93005; 94640; 94667; 94668; 94761; 96365; 96368; 96375; 97110; 97161; 97165; 97530; 99285; J0360; J0456; J0696; J1650; J1940; J2543; J2919; J3370; J3475; Q9967

== ENCOUNTER 2024-08-14 08:48 | Outpatient (OUT) | payer OTHER, SELFPAY ==
--- OUTSIDE RECORDS SUMMARY | 2024-08-14 08:55 | XMS_ITS | CCD ---
Author Organization [facility] Care Team Providers Care Java Development Manager Name Role Phone Steph Collier Attending Provider Unavailable Chantel Rainey Primary Care Provider Unavailabl e Joana, Herberth Attending Provider Unavailable Unavailable Primary Care Provider Unavailabl e UNKNOWN, PHYSICIAN Referring Unavailable JOO BRAVO Attending Unavailable JOO BRAVO Admitting Unavailable UNKNOWN, PHYSICIAN Primary Care Unavailable Rena Hurd Unavailable Joana, Herberth Unavailable Gato Loco Unavailable [phone] Steph Collier Attending Provider [phone] MD Gato Loco Attending Provider MD Nicky Ohara Primary Care [...] e FAWWAD, SAUNDERS H Primary Care Unavailable CAPITAN, DR BRITTANY Elizondo Consulting Unavailable MARTIREBBETH, DR STEPH Holland Consulting Unavailable KARASIK ., DR SANTIAGO Admitting Unavailabl e KARASIK ., DR ASNTIAGO Attending Unavailabl e KARASIK ., DR SANTIAGO [...] FAWWAD, SAUNDERS H Referring Unavailable SAMSA ., OB Attending Unavailable SAMSA ., BO Consulting Unavailable [...] UnavailGato Chatterjee Admitting UnavailSteph Strong Attending Provider [phone] FAWWAD, SAUNDERS Attending Unavailable FAWWAD, SAUNDERS [...] [fentanyl] Drug Allergy 07-07-[address] [facility] (1 source) linezolid; Translations: [LINEZOLID] Drug Allergy 03-17-20 20 [facility] Repository (20 sources) Vancomycin; Translations: [VANCOMYCIN] Drug Allergy 03-17-20 20 Unknown, Unknown Reaction [facility] (12 sources) DENIES METAL SENSITITIVITY Propensity to adverse reactions 03-14-20 24 Unknown, Unknown Reaction [facility] Medications Current Medications Medication Drug Class(es) Dates Sig (Normalized) Sig (Original) 30 ACTUAT fluticasone furoate 0.2 MG/ACTUAT / umeclidinium 0.0625 MG/ACTUAT / vilanterol 0.025 MG/ACTUAT Dry Powder Inhaler [Trelegy] (2 sources) take 1 puff(s) by inhalation once daily Trelegy Ellipta 200-62.5-25 MCG/INH 1 puff Inhalation Once a day Active [id number] 200 actuat albuterol 0.09 mg/actuat metered dose [...] 14, 2024 12:00am Start: 12-08-2022 End: 03-14-2024 Mkmwaydmqth-Srvuiyewb-Vvdsnp er (Trelegy Ellipta) 200-62.5-25 mcg blister with [...] 12:00am Start: 08-09-2022 take 1 tablet by [facility] every twenty-four hours Magnesium Oxide 400 MG 1 tablet with food Orally Once a day for 90 days Aug, Active montelukast 10 mg oral tablet (12 sources) Leukotriene Receptor Antagonist Start: 03-14-2024 take 1 tablet by mouth once daily Montelukast (Singulair) 10 mg tablet Active 10 MG PO Daily March 14, 2024 12:00am take 1 tablet by [facility] every twenty-four hours Singulair 10 [...] 14, 2024 10:41am take 1 capsule by [facility] every twelve hours Omeprazole 20 MG 1 CAPSULE Orally TWICE A DAY Active take 1 capsule by [facility] once daily Omeprazole 20 MG [...] 1 puff(s) by inhalation twice daily Ipratropium [place] (Atrovent Hfa) 17 mcg/actuation Hfa Aerosol Inhaler [...] Interpretation Reference Range Facility Telemedicine 07-11-2024 Telemedicine [id number] Nell Champion 1955 F Date Provider Department Center 07/11/2024 EMELIA MORALES ONC DCC Family History Problem Relation Age of Onset Heart failure Mother Heart disease Father Family Status - Relation Status Age at Mother Father Level of Service:51505 [facility] PHYS/QHP TELEPHONE EVALUATION 21-30 MIN () Reason for Visit and Comments: Telehealth Phone Visit [342] - Tracheobronchomalacia follow up per Dr Canseco. nw [facility] HPon 07-02-2024 H&P reviewed. The veda jordan [...] deficit PSYCH: appropriate mood, affect, and judgement. [facility] NURSNOTEon 07-02-2024 NURSNOTE Follow up at [facility] with Matthew Vargas May resume a Regular Diet and home medications. Normal [facility] NURSNOTE Bronchoscopy Finding s: Tracheobronchomalacia [facility] Telephoneon 06-27-2024 Telephone [id number] Nell Champion 1955 Date Provider Department Center 06/27/2024 Vitor0-SOURAV ESCOBAR ONC DCC Family History Problem Relation Age of Onset Heart failure Mother Heart disease Father Family Status - Relation Status Age at Mother Father [facility] Prep for Procedureon 024 Prep for Procedure [id number] Nell Champion 1955 Date Provider Department Center 06/26/2024 383-EMELIA YOO [facility] PREOP [place] Medical C Family History Problem Relation Age of Onset Heart failure Mother Heart disease Father Family Status - Relation Status Age at Mother Father Normal [facility] HPon 06-25-2024 HP ----- ----- Attestation [...] Age: 68 y.o. : 1955 Account No.: [id number] Referring physician: Dr. Bo Mcclain Chief complaint: Recurreny pneumonia HPI Diana Champion is a 68 y.o. female with PMHx of reportedly COPD, chronic hypoxic respiratory failure on 2L home O2 who is presenting to clinic as a new patient after being referred by Dr. Bo Baker of [facility]. 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 Her family history is positive for COPD [...] Past Medical History: Diagnosis Date Asthma Cancer ([facility]) COPD (chronic obstructive pulmonary disease) ([facility]) Coronary artery disease GERD (gastroesophageal reflux [...] mouth every other day. Yes Historical Provider, qlkyokkacot-nnofgtsvm-tqi anter 100-62.5-25 mcg blister with device Yes [...] ER ta (more content not included)... 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 CT DONE 04-11-24 AND 06-07-24 AT [facility]. RECORDS SCANNED INTO MEDIA. FILMS REQUESTED- requested 3 times and [employer] IS DOWN. Could not get films. Normal [facility] Office Visiton 05-13-2024 Follow-up visit [id number] Nell Champion 1955 F Date Provider Department Center 05/13/2024 271-HETAL SCALES [facility] Family History Problem Relation Age of Onset Heart failure Mother Heart disease Father Family Status - Relation Status Age at Mother Father Level of Service:94594 UT OFFICE/OUTPATIENT ESTABLISHED MOD MDM 30 MIN Normal [facility] Erythrocyte distribution wid th Auto (RBC) [Ratio]on 03-06-2024 Erythrocyte distribution width (RBC) [Ratio] 13.2 % 11.0-15.0 [facility] Estimated glomerular filtrat ion rate (GFR) non- Americanon 03-06-2024 GFR/1.73 sq M.predicted among non-blacks MDRD (S/P/Bld) [Vol rate/Area] 57 mL/min/{1.73_m2} >=60 [facility] Hematocrit Auto (Bld) [Volum e fraction]on 03-06-2024 Hematocrit (Bld) [Volume fraction] 38.7 % 36.0-48.0 [facility] Hemoglobin [Mass/volume] in Bloodon 03-06-2024 Hemoglobin (Bld) [Mass/Vol] 12.2 g/dL 12.0-16.0 [facility] Laboratory - Chemistry and C hemistry - challengeon 03-06-2024 Albumin [Mass/Vol] 3.0 g/dL 3.4-5.0 [facility] Calcium [Mass/Vol] 8.8 mg/dL 8.5-10.1 [facility] Chloride [Moles/Vol] 104 mmol/L 98-107 [facility] CO2 [Moles/Vol] 32.2 mmol/L 21.0-32.0 [facility] Creatinine [Mass/Vol] 0.97 mg/dL 0.55-1.02 [facility] GFR/1.73 sq M.predicted MDRD (S/P/Bld) [Vol rate/Area] mL/min/{1.73_m2} >=60 [facility] Glucose [Mass/Vol] 67 mg/dL 74-106 [facility] Magnesium [Mass/Vol] 1.9 mg/dL 1.8-2.4 [facility] Potassium [Moles/Vol] 3.4 mmol/L 3.5-5.1 [facility] Sodium [Moles/Vol] 143 mmol/L 136-145 [facility] Urate [Mass/Vol] 5.0 mg/dL 2.6-6.0 [facility] Urea nitrogen [Mass/Vol] 16.0 mg/dL 7.0-18.0 [facility] Urea nitrogen/Creatinine [Mass ratio] 16.5 mg/mg [facility] Leukocytes [#/volume] correc melanie for nucleated erythrocytes in Blood by Automated counon 03-06-2024 WBC corrected for nucl RBC Auto (Bld) [#/Vol] 8.1 10 3/uL 4.0-11.0 [facility] MCH Auto (RBC) [Entitic mass ]on 03-06-2024 MCH (RBC) [Entitic mass] 30.4 pg 26.7-34.0 [facility] MCHC Auto (RBC) [Mass/Vol]on 03-06-2024 MCHC (RBC) [Mass/Vol] 31.5 g/dL 29.9-35.2 [facility] MCV Auto (RBC) [Entitic vol] on 03-06-2024 MCV (RBC) [Entitic vol] 96.5 fL 81.0-99.0 [facility] No Panel Informationon 03-06 Urine Random Creatinine 63.27 mg/dL 20.00-300.00 [facility] Urine Random Total Protein <6.0 mg/dL <=11.9 [facility] 25-Hydroxy Vitamin D Total 37.1 ng/mL [facility] Comment on above: <20 ng/mL Vit D defi cient20-<30 ng/mL Vit D mvvoczemsgdp22-708 ng/mL Vit D sufficient>100 ng/mL Potential Toxicity Parathyroid Hormone (Intact) 36 pg/mL 15-65 [facility] Comment on above: Performed at: [address] [id number] Director: Raphael Marrero PhD, Phone: [phone] Phosphorus Level 3.2 mg/dL 2.6-4.7 [facility] Platelet mean volume Auto (B ld) [Entitic vol]on 03-06-2024 Platelet mean volume (Bld) [Entitic vol] 9.1 fL 9.5-13.5 [facility] Platelets Auto (Bld) [#/Vol] on 03-06-2024 Platelets (Bld) [#/Vol] 247 10 3/uL 150-450 [facility] RBC Auto (Bld) [#/Vol]on RBC (Bld) [#/Vol] 4.01 10 6/uL 4.20-5.40 [facility] Serum or plasma anion gap de terminationon 03-06-2024 Anion gap [Moles/Vol] 10.2 mmol/L [facility] SYMPTOMATIC COVID-19 ANTIGEN on 04-04-2023 EUA Statement SEE BELOW Normal [facility] Comment on above: Result Comment: This [...] sooner. Performed By: #### C VDAGS #### [facility] [address] [place] [address] Dr. Shayne Roldan SARS-CoV-2 (COVID-19) RNA KAYLEE+probe Ql (Unsp spec) Positive Abnormal NEGATIVE [facility] Comment on above: Performed By: #### C VDAGS #### [facility] [address] [place] [address] Dr. Shayne Roldan XR LSPINE 2_3 VIEWSon [...] STEPH GRANADOS Date: 2023-03-24 12:52 Normal [facility] PTH INTACTon 02-27-2023 PTH, Intact 87 pg/mL Critically high 15-[address] [facility] Comment on above: Performed By: #### P THINT #### [facility] [address] [place] [address] Dr. Shayne Roldan HEMOGRAM AND PLATELon 2022 Hematocrit (Bld) [Volume fraction] 44.4 % Normal 36.0-48.0 [facility] Comment on above: Performed By: #### H H #### [facility] [address] [place] [address] Dr. Shayne Roldan Hemoglobin (Bld) [Mass/Vol] 14.5 g/dL Normal 12.0-16.0 [facility] Comment on above: Performed By: #### H H #### [facility] [address] [place] [address] Dr. Shayne Roldan MCH (RBC) [Entitic mass] 30.3 pg Normal 26.7-34.0 [facility] Comment on above: Performed By: #### H H #### [facility] [address] [place] [address] Dr. Shayne Roldan MCHC (RBC) [Mass/Vol] 32.7 g/dL Normal 29.9-35.2 [facility] Comment on above: Performed By: #### H H #### [facility] [address] [place] [address] Dr. Shayne Roldan MCV (RBC) [Entitic vol] 92.9 fL Normal 81.0-99.0 [facility] Comment on above: Performed By: #### H H #### [facility] [address] [place] [address] Dr. Shayne Roldan PLT 367 103/ul Normal 150-450 [facility] Comment on above: Performed By: #### H H #### [facility] [address] [address] [address] Shayne Roldan RBC 4.78 106/ul Normal 4.20-5.40 [facility] Comment on above: Performed By: #### H H #### [facility] [address] [address] [address] Shayne Roldan WBC 9.9 103/ul Normal 4.0-11.0 [facility] Comment on above: Performed By: #### H H #### [facility] [address] [address] [address] Shayne Roldan MAGNESIUMon 02-25-2023 Magnesium [Mass/Vol] 1.6 mg/dL Critically low 1.8-2.4 [facility] Comment on above: Performed By: #### M G, RENAL, URIC #### [facility] [address] [place] [address] Dr. Shayne Roldan RENAL FUNCTION PANELon 02-25 Albumin [Mass/Vol] 3.4 g/dL Normal 3.4-5.0 [facility] Comment on above: Performed By: #### M G, RENAL, URIC #### [facility] [address] [place] [address] Dr. Shayne Roldan Calcium [Mass/Vol] 8.7 mg/dL Normal 8.5-10.1 [facility] Comment on above: Performed By: #### M G, RENAL, URIC #### [facility] [address] [place] [address] Dr. Shayne Roldan Chloride [Moles/Vol] 104 mmol/L Normal 98-107 [facility] Comment on above: Performed By: #### M G, RENAL, URIC #### [facility] [address] [address] [address] Shayne Roldan CO2 [Moles/Vol] 25.9 mmol/L Normal 21.0-32.[address] [facility] Comment on above: Performed By: #### M G, RENAL, URIC #### [facility] [address] [address] [address] Shayne Roldan Creatinine [Mass/Vol] 1.19 mg/dL Critically high 0.55-1.02 [facility] Comment on above: Performed By: #### M G, RENAL, URIC #### [facility] [address] [address] [address] Shayne Roldan EGFR-AF SWEDISH 55 mL/min/1.73m2 Critically low >=60 [facility] Comment on above: Performed By: #### M G, RENAL, URIC #### [facility] [address] [address] [address] Shayne Roldan EGFR-NON AF SW[place] 45 mL/min/1.73m2 Critically low >=60 [facility] Comment on above: Performed By: #### M G, RENAL, URIC #### [facility] [address] [place] [address] Dr. Shayne Roldan Glucose [Mass/Vol] 193 mg/dL Critically high 74-[address] [facility] Comment on above: Performed By: #### M G, RENAL, URIC #### [facility] [address] [place] [address] Dr. Shayne Roldan Phosphate [Mass/Vol] 3.2 mg/dL Normal 2.6-4.7 [facility] Comment on above: Performed By: #### M G, RENAL, URIC #### [facility] [address] [place] [address] Dr. Shayne Roldan Potassium [Moles/Vol] 3.9 mmol/L Normal 3.5-5.1 [facility] Comment on above: Performed By: #### M G, RENAL, URIC #### [facility] [address] [place] [address] Dr. Shayne Roldan Sodium [Moles/Vol] 140 mmol/L Normal 136-145 [facility] Comment on above: Performed By: #### M G, RENAL, URIC #### [facility] [address] [place] [address] Dr. Shayne Roldan Urea nitrogen [Mass/Vol] 17.0 mg/dL Normal 7.0-18.0 [facility] Comment on above: Performed By: #### M G, RENAL, URIC #### [facility] [address] [place] [address] Dr. Shayne Roldan UA RANDOM W/MICROSCOPICon BACTERIA TRACE Abnormal NONE SEEN [facility] Comment on above: Performed By: #### M G, RENAL, URIC #### [facility] [address] [address] [address] Shayne Roldan Bilirubin Ql (U) Negative Normal NEGATIVE [facility] Comment on above: Performed By: #### M G, RENAL, URIC #### [facility] [address] [address] [address] Shayne Roldan CAST NONE SEEN Normal NONE SEEN [facility] Comment on above: Performed By: #### M G, RENAL, URIC #### [facility] [address] [place] [address] Dr. Shayne Roldan Clarity (U) CLEAR Normal CLEAR [facility] Comment on above: Performed By: #### M G, RENAL, URIC #### [facility] [address] [place] [address] Dr. Shayne Roldan Color (U) LT. YELLOW Normal YELLOW [facility] Comment on above: Performed By: #### M G, RENAL, URIC #### [facility] [address] [address] [address] Shayne Roldan Crystals LM Nom (Urine sed) NONE SEEN Normal NONE SEEN [facility] Comment on above: Performed By: #### M G, RENAL, URIC #### [facility] [address] [place] [address] Dr. Shayne Roldan Epithelial cells LM Ql (Urine sed) RARE Normal NONE SEEN /RARE [facility] Comment on above: Performed By: #### M G, RENAL, URIC #### [facility] [address] [place] [address] Dr. Shayne Roldan Glucose Ql (U) Negative Normal NEGATIVE [facility] Comment on above: Performed By: #### M G, RENAL, URIC #### [facility] [address] [address] [address] Shayne Roldan Hemoglobin Ql (U) Negative Normal NEGATIVE [facility] Comment on above: Performed By: #### M G, RENAL, URIC #### [facility] [address] [address] [address] Shayne Roldan Ketones Ql (U) Negative Normal NEGATIVE [facility] Comment on above: Performed By: #### M G, RENAL, URIC #### [facility] [address] [address] [address] Shayne Roldan LEUKOCYTES Negative Normal NEGATIVE [facility] Comment on above: Performed By: #### M G, RENAL, URIC #### [facility] [address] [address] [address] Shayne Roldan MUCOUS NONE SEEN Normal NONE SEEN [facility] Comment on above: Performed By: #### M G, RENAL, URIC #### [facility] [address] [address] [address] Shayne Roldan Nitrite Ql (U) Negative Normal NEGATIVE [facility] Comment on above: Performed By: #### M G, RENAL, URIC #### [facility] [address] [place] [address] Dr. Shayne Roldan pH (U) 5.0 [pH] Normal 5-9 [facility] Comment on above: Performed By: #### M G, RENAL, URIC #### [facility] [address] [place] [address] Dr. Shayne oRldan RBC 0-2 Normal 0-2 [facility] Comment on above: Performed By: #### M G, RENAL, URIC #### [facility] [address] [address] [address] Shayne Roldan SPEC GRAVITY 1.025 Normal 1.005-<=1.02 5 [facility] Comment on above: Performed By: #### M G, RENAL, URIC #### [facility] [address] [address] [address] Shayne Roldan UA PROTEIN Negative Normal NEGATIVE/ TRACE [facility] Comment on above: Performed By: #### M G, RENAL, URIC #### [facility] [address] [place] [address] Dr. Shayne Roldan Urobilinogen Qn (U) 0.2 {Rogeilo'U}/dL Normal 0.2 - 1. 0 [facility] Comment on above: Performed By: #### M G, RENAL, URIC #### [facility] [address] [address] [address] Shayne Roldan WBC 0-2 Abnormal NONE SEEN [facility] Comment on above: Performed By: #### M G, RENAL, URIC #### [facility] [address] [place] [address] Dr. Shayne Roldan URIC ACID SERUMon 02-25-2023 Urate [Mass/Vol] 6.1 mg/dL Critically high 2.6-6.0 [facility] Comment on above: Performed By: #### M G, RENAL, URIC #### [facility] [address] [place] [address] Dr. Shayne Roldan URINE T PROTEIN CREAT RATIOo n 02-25-2023 Protein (U) [Mass/Vol] 13.0 mg/dL Critically high <=12.0 [facility] Comment on above: Performed By: #### M G, RENAL, URIC #### [facility] [address] [place] [address] Dr. Shayne Roldan UR PROT CREAT RAT 0.16 Normal [address] [facility] Comment on above: Performed By: #### M G, RENAL, URIC #### [facility] [address] [place] [address] Dr. Shayne Roldan URINE CREAT 83.60 mg/dL Normal 20.00-300.00 [facility] Comment on above: Performed By: #### M G, RENAL, URIC #### [facility] [address] [place] [address] Dr. Shayne Roldan VITAMIN D 25 OHon 02-25-2023 VIT D 25-OH 41.6 ng/mL Normal [facility] Comment on above: Performed By: #### M G, RENAL, URIC #### [facility] [address] [place] [address] Dr. Shayne Roldan VIT D RANGES SEE BELOW Normal [facility] Comment on above: Result Comment: <20 ng/mL Vit D deficient 20 - <30 ng/mL Vit D insufficient 30 - 100 ng/mL Vit D sufficient >100 ng/mL Potential Toxicity Performed By: #### M G, RENAL, URIC #### [facility] [address] [id number] [address] Shayne Roldan XR CHEST 2 Von [...] by: BRITTANY GALDAMEZ Date: 2023-02-22 16:15 Normal [facility] MAMM SCREEN 3D PRATEEK CADon 12-15-2022 MAMM SCREEN 3D PRATEEK CAD Patient: DIANA CHAMPION Exam Date: 12/15/2022 : 1955 Gender:F Ordering : DR JACK HALL . Admission #: [id number] Family : Order #: [id number] CLICK HERE TO VIEW EXAM RADIOLOGY REPORT PROCEDURE: MAMMOGRAM SCREENING 3D BILATERAL CAD COMPARISON: MAMM SCREEN 3D PRATEEK CAD, 11/26/2021. INDICATIONS: Calculator Name NCI Breast Cancer Risk Assessment Tool 5 Year Breast Cancer Risk 1.20% Lifetime Breast Cancer Risk 4.40% Personal Breast Cancer No Personal Ovarian Cancer No Treatments Excision, radiation, chemotherapy Family Cancers None LOCATION: [facility] BREAST COMPOSITION: Almost entirely fatty. FINDINGS: DIAGNOSTIC [...] Walters MD on 12/15/2022 at 10:51 Normal [facility] XR DEXA BONE DENSITYon 12-15 [...] by: STEPH GRANADOS Date: 2022-12-15 09:50 Normal [facility] 12-08-2022 L ----- Specimen: [id number] Received: 12/08/22 Status: CELIA Eliza Num: [id number] Spec Type: Surgical Subm Dr: Gato Loco MD Tissues: A Colon Biopsy (DESC COL POLYP) Procedures: HE/Evonne, Gross/Micro L4 Age/ Patient Sex Location Account Attending Physician ChampionDiana 67/F [id number] Gato Loco MD SPEC NUM: [id number] RECD: 12/08/22 STATUS: CELIA KAY NUM: [id number] KENDRA: 12/08/22 [facility] DR: Gato Loco MD ENTERED: 12/08/[address]: KHRIS TYPE: Surgical DEPT: S ENTERED BY: [id number] RECV BY: [id number] ORDERED: HE/2, Gross/Micro L4 ORDERED: HE/2, Gross/Micro [...] support the above pathologic diagnosis. CPT Codes 40187 Specimen: [id number] Received: 12/08/22 Status: CELIA Kay Num: [id number] Spec Type: Surgical Subm Dr: Gato Loco MD Tissues: A Colon Biopsy (DESC COL POLYP) Procedures: HE/2, Gross/Micro L4 Patient: Diana Champion [id number] (Continued) Signed (signature on file) Eunice Rosa MD 12/09/22 1053 [facility] PAP ACOG PANEL 2: 30 to 65on 11-16-2022 . . Normal [facility] Comment on above: Performed By: #### [id number] #### [facility] [address] [place] [address] Dr. Shayne Roldan Age Gdln ACOG Testing Comment [facility] Comment on above: Result Comment: <21 or >65 or no age provided Performed By: #### [id number] #### [facility] [address] [address] [address] Shayne Roldan DIAGNOSIS: Comment [facility] Comment on above: Result Comment: NEGA TIVE FOR INTRAEPITHELIAL LESION OR MALIGNANCY. Performed By: #### [id number] #### [facility] [address] [place] [address] Dr. Shayne Roldan Methodology: Comment Normal [facility] Comment on above: Result Comment: This liquid based ThinPrep(R) pap test was screened with the use of an image guided system. Performed By: #### [id number] #### [facility] [address] [place] [address] Dr. Shayne Roldan Note: Comment Normal [facility] Comment on above: Result Comment: The Pap smear is a screening test designed to aid in the detection of premalignant and malignant conditions of the uterine cervix. It is not a diagnostic procedure and should not be used as the sole means of detecting cervical cancer. Both false-positive and false-negative reports do occur. . Performed By: #### [id number] #### [facility] [address] [place] [address] Dr. Shayne Roldan Performed by: Comment Normal [facility] Comment on above: Result Comment: Onur Aguilar Hide Sorter (ASCP) Performed By: #### [id number] #### [facility] [address] [place] [address] Dr. Shayne Roldan Specimen adequacy: Comment Normal [facility] Comment on above: Result Comment: Sati sfactory for evaluation. Endocervical and/or squamous metaplastic cells (endocervical component) are present. Performed By: #### [id number] #### [facility] [address] [place] [address] Dr. Shayne Roldan RENAL FUNCTION PANELon 08-19 Albumin [Mass/Vol] 3.4 g/dL Normal 3.4-5.0 [facility] Comment on above: Performed By: #### M G, RENAL, URIC #### [facility] [address] [place] [address] Dr. Shayne Roldan Calcium [Mass/Vol] 8.4 mg/dL Critically low 8.5-10.1 [facility] Comment on above: Performed By: #### M G, RENAL, URIC #### [facility] [address] [address] [address] Shayne Roldan Chloride [Moles/Vol] 103 mmol/L Normal 98-107 [facility] Comment on above: Performed By: #### M G, RENAL, URIC #### [facility] [address] [address] [address] Shayne Roldan CO2 [Moles/Vol] 27.8 mmol/L Normal 21.0-32.0 [facility] Comment on above: Performed By: #### M G, RENAL, URIC #### [facility] [address] [address] [address] Shayne Roldan Creatinine [Mass/Vol] 1.02 mg/dL Normal 0.55-1.02 [facility] Comment on above: Performed By: #### M G, RENAL, URIC #### [facility] [address] [address] [address] Shayne Roldan EGFR-AF SWEDISH >60 Normal >=[address] [facility] Comment on above: Performed By: #### M G, RENAL, URIC #### [facility] [address] [address] [address] Shayne Roldan EGFR-NON AF SWEDISH 54 mL/min/1.73m2 Critically low >=60 [facility] Comment on above: Performed By: #### M G, RENAL, URIC #### [facility] [address] [address] [address] Shayne Roldan Glucose [Mass/Vol] 110 mg/dL Critically high 74-106 [facility] Comment on above: Performed By: #### M G, RENAL, URIC #### [facility] [address] [address] [address] Shayne Roldan Phosphate [Mass/Vol] 2.3 mg/dL Critically low 2.6-4.7 [facility] Comment on above: Performed By: #### M G, RENAL, URIC #### [facility] [address] [address] [address] Shayne Roldan Potassium [Moles/Vol] 3.2 mmol/L Critically low 3.5-5.1 [facility] Comment on above: Performed By: #### M G, RENAL, URIC #### [facility] [address] [place] [address] Dr. Shayne Roldan Sodium [Moles/Vol] 138 mmol/L Normal 136-145 [facility] Comment on above: Performed By: #### M G, RENAL, URIC #### [facility] [address] [place] [address] Dr. Shayne Roldan Urea nitrogen [Mass/Vol] 14.0 mg/dL Normal 7.0-18.0 [facility] Comment on above: Performed By: #### M G, RENAL, URIC #### [facility] [address] [place] [address] Dr. Shayne Roldan PTH INTACTon 08-06-2022 PTH, Intact 40 pg/mL Normal 15-65 [facility] Comment on above: Performed By: #### M G, RENAL, URIC #### [facility] [address] [place] [address] Dr. Shayne Roldan HEMOGRAM AND PLATELon 2021 Hematocrit (Bld) [Volume fraction] 39.8 % Normal 36.0-48.0 [facility] Comment on above: Performed By: #### M G, RENAL, URIC #### [facility] [address] [place] [address] Dr. Shayne Roldan Hemoglobin (Bld) [Mass/Vol] 13.4 g/dL Normal 12.0-16.0 [facility] Comment on above: Performed By: #### M G, RENAL, URIC #### [facility] [address] [place] [address] Dr. Shayne Roldan MCH (RBC) [Entitic mass] 30.5 pg Normal 26.7-34.0 [facility] Comment on above: Performed By: #### M G, RENAL, URIC #### [facility] [address] [place] [address] Dr. Shayne Roldan MCHC (RBC) [Mass/Vol] 33.7 g/dL Normal 29.9-35.2 [facility] Comment on above: Performed By: #### M G, RENAL, URIC #### [facility] [address] [address] [address] Shayne Roldan MCV (RBC) [Entitic vol] 90.5 fL Normal 81.0-99.0 [facility] Comment on above: Performed By: #### M G, RENAL, URIC #### [facility] [address] [address] [address] Shayne Roldan PLT 299 103/ul Normal 150-450 [facility] Comment on above: Performed By: #### M G, RENAL, URIC #### [facility] [address] [address] [address] Shayne Roldan RBC 4.40 106/ul Normal 4.20-5.40 [facility] Comment on above: Performed By: #### M G, RENAL, URIC #### [facility] [address] [place] [address] Dr. Shayne Roldan WBC 8.8 103/ul Normal 4.0-11.0 [facility] Comment on above: Performed By: #### M G, RENAL, URIC #### [facility] [address] [place] [address] Dr. Shayne Roldan MAGNESIUMon 08-05-2022 Magnesium [Mass/Vol] 1.5 mg/dL Critically low 1.8-2.4 [facility] Comment on above: Performed By: #### M G, RENAL, URIC #### [facility] [address] [address] [address] Shayne Roldan RENAL FUNCTION PANELon 08-05 Albumin [Mass/Vol] 3.5 g/dL Normal 3.4-5.0 [facility] Comment on above: Performed By: #### M G, RENAL, URIC #### [facility] [address] [address] [address] Shayne Roldan Calcium [Mass/Vol] 8.4 mg/dL Critically low 8.5-10.1 [facility] Comment on above: Performed By: #### M G, RENAL, URIC #### [facility] [address] [address] [address] Shayne Roldan Chloride [Moles/Vol] 101 mmol/L Normal 98-107 [facility] Comment on above: Performed By: #### M G, RENAL, URIC #### [facility] [address] [address] [address] Shayne Roldan CO2 [Moles/Vol] 29.5 mmol/L Normal 21.0-32.0 [facility] Comment on above: Performed By: #### M G, RENAL, URIC #### [facility] [address] [address] [address] Shayne Roldan Creatinine [Mass/Vol] 1.04 mg/dL Critically high 0.55-1.02 [facility] Comment on above: Performed By: #### M G, RENAL, URIC #### [facility] [address] [place] [address] Dr. Shayne Roldan EGFR-AF SWEDISH >60 Normal >=60 [facility] Comment on above: Performed By: #### M G, RENAL, URIC #### [facility] [address] [place] [address] Dr. Shayne Roldan EGFR-NON AF SWEDISH 53 mL/min/1.73m2 Critically low >=60 [facility] Comment on above: Performed By: #### M G, RENAL, URIC #### [facility] [address] [place] [address] Dr. Shayne Roldan Glucose [Mass/Vol] 92 mg/dL Normal 74-106 [facility] Comment on above: Performed By: #### M G, RENAL, URIC #### [facility] [address] [address] [address] Shayne Roldan Phosphate [Mass/Vol] 2.4 mg/dL Critically low 2.6-4.7 [facility] Comment on above: Performed By: #### M G, RENAL, URIC #### [facility] [address] [place] [address] Dr. Shayne Roldan Potassium [Moles/Vol] 2.8 mmol/L Critically low 3.5-5.1 [facility] Comment on above: Performed By: #### M G, RENAL, URIC #### [facility] [address] [place] [address] Dr. Shayne Roldan Sodium [Moles/Vol] 137 mmol/L Normal 136-145 [facility] Comment on above: Performed By: #### M G, RENAL, URIC #### [facility] [address] [place] [address] Dr. Shayne Roldan Urea nitrogen [Mass/Vol] 10.0 mg/dL Normal 7.0-18.0 [facility] Comment on above: Performed By: #### M G, RENAL, URIC #### [facility] [address] [place] [address] Dr. Shayne Roldan UA RANDOM W/MICROSCOPICon BACTERIA SMALL Abnormal NONE SEEN [facility] Comment on above: Performed By: #### U AMIC #### [facility] [address] [place] [address] Dr. Shayne Roldan Bilirubin Ql (U) Negative Normal NEGATIVE [facility] Comment on above: Performed By: #### U AMIC #### [facility] [address] [place] [address] Dr. Shayne Roldan CAST NONE SEEN Normal NONE SEEN [facility] Comment on above: Performed By: #### U AMIC #### [facility] [address] [place] [address] Dr. Shayne Roldan Clarity (U) CLEAR Normal CLEAR [facility] Comment on above: Performed By: #### U AMIC #### [facility] [address] [place] [address] Dr. Shayne Roldan Color (U) LT. YELLOW Normal YELLOW [facility] Comment on above: Performed By: #### U AMIC #### [facility] [address] [place] [address] Dr. Shayne Roldan Crystals LM Nom (Urine sed) NONE SEEN Normal NONE SEEN [facility] Comment on above: Performed By: #### U AMIC #### [facility] [address] [place] [address] Dr. Shayne Roldan Epithelial cells LM Ql (Urine sed) FEW Abnormal NONE SEEN /RARE [facility] Comment on above: Performed By: #### U AMIC #### [facility] [address] [address] [address] Shayne Roldan Glucose Ql (U) Negative Normal NEGATIVE [facility] Comment on above: Performed By: #### U AMIC #### [facility] [address] [address] [address] Shayne Roldan Hemoglobin Ql (U) Negative Normal NEGATIVE [facility] Comment on above: Performed By: #### U AMIC #### [facility] [address] [address] [address] Shayne Roldan Ketones Ql (U) Negative Normal NEGATIVE [facility] Comment on above: Performed By: #### U AMIC #### [facility] [address] [address] [address] Shayne Roldan LEUKOCYTES TRACE Abnormal NEGATIVE [facility] Comment on above: Performed By: #### U AMIC #### [facility] [address] [address] [address] Shayne Roldan MUCOUS NONE SEEN Normal NONE SEEN [facility] Comment on above: Performed By: #### U AMIC #### [facility] [address] [address] [address] Shayne Roldan Nitrite Ql (U) Negative Normal NEGATIVE [facility] Comment on above: Performed By: #### U AMIC #### [facility] [address] [address] [address] Shayne Roldan pH (U) 6.0 [pH] Normal 5-9 [facility] Comment on above: Performed By: #### U AMIC #### [facility] [address] [address] [address] Shayne Roldan RBC NONE SEEN Abnormal 0-2 [facility] Comment on above: Performed By: #### U AMIC #### [facility] [address] [address] [address] Shayne Roldan SPEC GRAVITY <=1.005 Abnormal 1.005-<=1.02 5 [facility] Comment on above: Performed By: #### U AMIC #### [facility] [address] [address] [address] Shayne Roldan UA PROTEIN Negative Normal NEGATIVE/ TRACE [facility] Comment on above: Performed By: #### U AMIC #### [facility] [address] [place] [address] Dr. Shayne Roldan Urobilinogen Qn (U) 0.2 {Rogelio'U}/dL Normal 0.2 - 1. 0 [facility] Comment on above: Performed By: #### U AMIC #### [facility] [address] [place] [address] Dr. Shayne Roldan WBC 5-10 Abnormal NONE SEEN [facility] Comment on above: Performed By: #### U AMIC #### [facility] [address] [place] [address] Dr. Shayne Roldan URIC ACID SERUMon 08-05-2022 Urate [Mass/Vol] 6.5 mg/dL Critically high 2.6-6.0 [facility] Comment on above: Performed By: #### M G, RENAL, URIC #### [facility] [address] [place] [address] Dr. Shayne Roldan URINE T PROTEIN CREAT RATIOo n 08-05-2022 Protein (U) [Mass/Vol] 4.8 mg/dL Normal <=12.0 [facility] Comment on above: Performed By: #### U RTPCR #### [facility] [address] [place] [address] Dr. Shayne Roldan UR PROT CREAT RAT 0.09 Normal [address] [facility] Comment on above: Performed By: #### U RTPCR #### [facility] [address] [place] [address] Dr. Shayne Roldan URINE CREAT 52.65 mg/dL Normal 20.00-300.00 [facility] Comment on above: Performed By: #### U RTPCR #### [facility] [address] [place] [address] Dr. Shayne Roldan VITAMIN D 25 OHon 08-05-2022 VIT D 25-OH 38.9 ng/mL Normal [facility] Comment on above: Performed By: #### M G, RENAL, URIC #### [facility] [address] [address] [address] Shayne Roldan VIT D RANGES SEE BELOW Normal [facility] Comment on above: Result Comment: <20 ng/mL Vit D deficient 20 - <30 ng/mL Vit D insufficient 30 - 100 ng/mL Vit D sufficient >100 ng/mL Potential Toxicity Performed By: #### M G, RENAL, URIC #### [facility] [address] [address] [address] Shayne Roldan IMMUNOGLOBULINS IGA/IGM/IGG/ IGE QUANTITAon 07-12-2022 Immunoglobulin A, Qn, Serum 295 mg/dL Normal 87-352 [facility] Comment on above: Result Comment: Perf ormed at: CB Performed By: #### M G, RENAL, URIC #### [facility] [address] [place] [address] Dr. Shayne Roldan Immunoglobulin E, Total 32 IU/mL Normal 6-495 [facility] Comment on above: Result Comment: Perf ormed at: BN Performed By: #### M G, RENAL, URIC #### [facility] [address] [address] [address] Shayne Roldan Immunoglobulin G, Qn, Serum 729 mg/dL Normal 586-1602 [facility] Comment on above: Result Comment: Perf ormed at: CB Performed By: #### M G, RENAL, URIC #### [facility] [address] [place] [address] Dr. Shayne Roldan Immunoglobulin M, Qn, Serum 75 mg/dL Normal 26-217 [facility] Comment on above: Result Comment: Perf ormed at: CB Performed By: #### M G, RENAL, URIC #### [facility] [address] [address] [address] Shayne Roldan CBC AUTO DIFFon 07-05-2022 BASO # 0.1 103/ul Normal 0.0-0.1 [facility] Comment on above: Performed By: #### M G, RENAL, URIC #### [facility] [address] [address] [address] Shayne Roldan Basophils/100 WBC (Bld) 0.7 % Normal 0.2-2.0 [facility] Comment on above: Performed By: #### M G, RENAL, URIC #### [facility] [address] [place] [address] Dr. Shayne Roldan EO # 0.4 103/ul Normal 0.0-0.7 [facility] Comment on above: Performed By: #### M G, RENAL, URIC #### [facility] [address] [place] [address] Dr. Shayne Roldan Eosinophils/100 WBC (Bld) 4.4 % Normal 0.9-7.0 [facility] Comment on above: Performed By: #### M G, RENAL, URIC #### [facility] [address] [place] [address] Dr. Shayne Roldan Erythrocyte distribution width (RBC) [Ratio] 12.6 % Normal 11.0-15.0 [facility] Comment on above: Performed By: #### M G, RENAL, URIC #### [facility] [address] [place] [address] Dr. Shayne Roldan Hematocrit (Bld) [Volume fraction] 40.2 % Normal 36.0-48.0 [facility] Comment on above: Performed By: #### M G, RENAL, URIC #### [facility] [address] [place] [address] Dr. Shayne Roldan Hemoglobin (Bld) [Mass/Vol] 13.6 g/dL Normal 12.0-16.0 [facility] Comment on above: Performed By: #### M G, RENAL, URIC #### [facility] [address] [place] [address] Dr. Shayne Roldan IG # 0.07 10e3/ul Critically high 0.00-0.[address] [facility] Comment on above: Performed By: #### M G, RENAL, URIC #### [facility] [address] [place] [address] Dr. Shayne Roldan IG % 0.8 % Critically high 0.0-0.5 [facility] Comment on above: Performed By: #### M G, RENAL, URIC #### [facility] [address] [address] [address] Shayne Roldan LYMPH # 2.3 103/ul Normal 1.2-3.8 [facility] Comment on above: Performed By: #### M G, RENAL, URIC #### [facility] [address] [address] [address] Shayne Roldan Lymphocytes/100 WBC (Bld) 24.7 % Normal 20.5-60.0 [facility] Comment on above: Performed By: #### M G, RENAL, URIC #### [facility] [address] [address] [address] Shayne Roldan MANUAL DIFF REQ NO Normal [facility] Comment on above: Performed By: #### M G, RENAL, URIC #### [facility] [address] [place] [address] Dr. Shayne Roldan MCH (RBC) [Entitic mass] 30.7 pg Normal 26.7-34.0 [facility] Comment on above: Performed By: #### M G, RENAL, URIC #### [facility] [address] [place] [address] Dr. Shayne Roldan MCHC (RBC) [Mass/Vol] 33.8 g/dL Normal 29.9-35.2 [facility] Comment on above: Performed By: #### M G, RENAL, URIC #### [facility] [address] [place] [address] Dr. Shayne Roldan MCV (RBC) [Entitic vol] 90.7 fL Normal 81.0-99.0 [facility] Comment on above: Performed By: #### M G, RENAL, URIC #### [facility] [address] [address] [address] Shayne Roldan MONO # 0.7 103/ul Normal 0.3-0.8 [facility] Comment on above: Performed By: #### M G, RENAL, URIC #### [facility] [address] [place] [address] Dr. Shayne Roldan Monocytes/100 WBC (Bld) 7.7 % Normal 1.7-12.0 [facility] Comment on above: Performed By: #### M G, RENAL, URIC #### [facility] [address] [address] [address] Shayne Roldan NEUT # 5.7 103/ul Normal 1.4-6.5 [facility] Comment on above: Performed By: #### M G, RENAL, URIC #### [facility] [address] [address] [address] Shayne Roldan Neutrophils/100 WBC (Bld) 61.7 % Normal 43.0-75.0 [facility] Comment on above: Performed By: #### M G, RENAL, URIC #### [facility] [address] [place] [address] Dr. Shayne Roldan Platelet mean volume (Bld) [Entitic vol] 8.8 fL Critically low 9.5-13.5 [facility] Comment on above: Performed By: #### M G, RENAL, URIC #### [facility] [address] [place] [address] Dr. Shayne Roldan PLT 279 103/ul Normal 150-450 [facility] Comment on above: Performed By: #### M G, RENAL, URIC #### [facility] [address] [place] [address] Dr. Shayne Roldan RBC 4.43 106/ul Normal 4.20-5.40 [facility] Comment on above: Performed By: #### M G, RENAL, URIC #### [facility] [address] [place] [address] Dr. Shayne Roldan WBC 9.1 103/ul Normal 4.0-11.0 [facility] Comment on above: Performed By: #### M G, RENAL, URIC #### [facility] [address] [place] [address] Dr. Shayne Roldan [facility] SARS-CoV-2 (COVID-19) RNA KAYLEE+probe Ql (Unsp spec) Not detected Normal NOT DETECTED [facility] Comment on above: Result Comment: This test is not yet approved or cleared by the [place] FDA. When there are no FDA-approved or cleared tests available, and other criteria are met, FDA can make tests available under an emergency access mechanism called an Emergency Use Authorization (EUA). The EUA for this test is supported by the [place] of Health and Human Service's (HHS's) declaration [...] By: #### M G, RENAL, URIC #### [facility] [address] [address] [address] Shayne Roldan XR CHEST 2 Von [...] NARDA LONDONO Date: 2022-06-08 19:58 Normal [facility] Covid-19 PCR ([facility])on SARS-CoV-2 (COVID-19) RNA KAYLEE+probe Ql (Unsp spec) Not detected Normal NOT DETECTED [facility] Comment on above: Result Comment: This test is not yet approved or cleared by the [place] FDA. When there are no FDA-approved or cleared tests available, and other criteria are met, FDA can make tests available under an emergency access mechanism called an Emergency Use Authorization (EUA). The EUA for this test is supported by the [place] of Health and Human Service's (HHS's) declaration [...] consistent with SARS-CoV-2. Performed By: #### [facility] #### [facility] [address] [address] [address] Shayne Roldan DEXA AXIALon 03-01-2022 DEXA AXIAL [facility] Department of Radiology [address] [place] [address] Patient Name: DIANA CHAMPION : 1955 Sex: F Age: Race: White Pt. Location: Patient Status: D Ordered Date: 02/24/2022 1:25:00 PM Completed Date: 03/01/2022 09:46 AM Requesting Provider: CINDA ANTONIO Attending Provider: Report Copy To: Signs & Symptoms: Z78.0 Asymptomatic menopausal state I10 History: [place] Comments: Exam: DEXA AXIAL DEXA AXIAL 03/01/2022 [...] characteristics. Electronically signed: Luzma Fernandez. Transcribed by: [email or web address], User Resident: Electronically Signed by: LUZMA FERNANDEZ @ 03/02/2022 01:07 PM Normal [facility] SCOLIOSIS 2 [facility] 02-24-2022 SCOLIOSIS 2 [facility] Department of Radiology [address] [place] [id number] Patient Name: DIANA CHAMPION : 1955 [...] spine. Electronically signed: Hugo Lynn. Transcribed by: [email or web address], User Resident: Electronically Signed by: HUGO LYNN @ 02/26/2022 11:07 AM Normal [facility] Comment on above: Order Comment: Views (X-RAY, SCOLIOSIS): PA, Lateral evaluate CT LUMBAR SPINE W CONTRASTon 01-24-2022 CT LUMBAR SPINE W CONTRAST [facility] Department of Radiology [address] [place] [id number] Patient Name: DIANA CHAMPION : 1955 [...] L1-2. Electronically signed: Gaurang Lawrence. Transcribed by: [email or web address], User Resident: Electronically Signed by: GAURANG LAWRENCE @ 01/26/2022 08:58 AM Normal [facility] Comment on above: Order Comment: , CT MYELOGRAM>PAPER WORK IN CHART LUMBAR MYELOGRAMon 2 LUMBAR MYELOGRAM [facility] Department of Radiology [address] [place] [id number] Patient Name: DIANA CHAMPION : 1955 Sex: F Age: Race: White Pt. Location: Patient Status: O Ordered Date: 01/09/2022 9:00:00 AM Completed Date: 01/24/2022 02:37 PM Requesting Provider: JOO BRAVO Attending Provider: JOO BRAVO Report Copy To: UNKNOWN, PHYSICIAN Signs & Symptoms: M54.16 Radiculopathy, lumbar region I10 History: Jessica Is patient on thinners? 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 Consent was obtained. Timeout: [place] protocol timeout verification performed. PROCEDURE: Estimated blood [...] report. Electronically signed: Greg Marlow. Transcribed by: [email or web address], User Resident: DEBBIE JI Electronically Signed by: [...] PELVIS [facility] Department of Radiology [address] [place] [id number] Patient Name: DIANA CHAMPION : 1955 [...] hardware. Electronically signed: Joe Matthew. Transcribed by: [email or web address], User Resident: Electronically Signed by: JOE MATTHEW @ 01/09/2022 04:45 PM Normal [facility] Comment on above: Order Comment: Evalu ate Vital Signs Date Time Vital Sign Value Performing Clinician Facility 03-14-2024 10:30-0400 Body height 165.1 cm Steph Collier Work Phone: [facility] 03-14-2024 10:30-0400 Body mass index (BMI) [Ratio] 39 kg/m2 Setph Collier Work Phone: [facility] 03-14-2024 10:30-0400 Body temperature 97.4 [degF] Steph Collier Work Phone: [facility] 03-14-2024 10:30-0400 Body weight 106.36 kg Steph Collier Work Phone: [facility] 03-14-2024 10:30-0400 Diastolic blood pressure 80 mm[Hg] Steph Collier Work Phone: [facility] 03-14-2024 10:30-0400 Heart rate 77 /min Steph Collier Work Phone: [facility] 03-14-2024 10:30-0400 Inhaled oxygen flow rate 3 L/min Steph Collier Work Phone: [facility] 03-14-2024 10:30-0400 Respiratory rate 20 /min Steph Collier Work Phone: [facility] 03-14-2024 10:30-0400 SaO2% (BldA) [Mass fraction] 92 % Steph Collier Work Phone: [facility] 03-14-2024 10:30-0400 Systolic blood pressure 120 mm[Hg] Steph Collier Work Phone: [facility] 08-17-2023 09:20-0400 Body height 165.1 cm Herberth Joana Other [facility] Other 08-17-2023 09:20-0400 Body mass index (BMI) [Ratio] 38.1 kg/m2 Herberth Joana Other [facility] Other 08-17-2023 09:20-0400 Body temperature 98.8 [degF] Herberth Joana Other [facility] Other 08-17-2023 09:20-0400 Body weight 103.87 kg Herberth Joana Other [facility] Other 08-17-2023 09:20-0400 Diastolic blood pressure 85 mm[Hg] Herberth Joana Other [facility] Other 08-17-2023 09:20-0400 Respiratory rate 18 /min Herberth Joana Other [facility] Other 08-17-2023 09:20-0400 SaO2% (BldA) [Mass fraction] 94 % Herberth Joana Other [facility] Other 08-17-2023 09:20-0400 Systolic blood pressure 151 mm[Hg] Herberth Joana Other [facility] Other 03-02-2023 10:00-0400 Body height 165.1 cm Herberth Joana Other [facility] Other 03-02-2023 10:00-0400 Body mass index (BMI) [Ratio] 37.29 kg/m2 Herberth Joana Other [facility] Other 03-02-2023 10:00-0400 Body temperature 98.9 [degF] Herberth Joana Other [facility] Other 03-02-2023 10:00-0400 Body weight 101.65 kg Herberth Joana Other [facility] Other 03-02-2023 10:00-0400 Diastolic blood pressure 76 mm[Hg] Herberth Joana Other [facility] Other 03-02-2023 10:00-0400 Respiratory rate 20 /min Herberth Joana Other [facility] Other 03-02-2023 10:00-0400 SaO2% (BldA) [Mass fraction] 96 % Herberth Joana Other [facility] Other 03-02-2023 10:00-0400 Systolic blood pressure 136 mm[Hg] Herberth Joana Other [facility] Other 12-08-2022 09:30-0500 Diastolic blood pressure 59 mm[Hg] MD Shaikh Ohara Work Phone: [facility] 12-08-2022 09:30-0500 Heart rate 55 /min MD Shaikh Ohara Work Phone: [facility] 12-08-2022 09:30-0500 Respiratory rate 16 /min MD Shaikh Ohara Work Phone: [facility] 12-08-2022 09:30-0500 SaO2% (BldA) [Mass fraction] 96 % MD Shaikh Ohara Work Phone: [facility] 12-08-2022 09:30-0500 Systolic blood pressure 112 mm[Hg] MD Shaikh Ohara Work Phone: [facility] 12-08-2022 06:54-0500 Body height 162.56 cm MD Shaikh Ohara Work Phone: [facility] 12-08-2022 06:54-0500 Body temperature 98.2 [degF] MD Shaikh Ohara Work Phone: [facility] 12-08-2022 06:54-0500 Body weight 104.32 kg MD Shaikh Ohara Work Phone: [facility] 08-09-2022 11:00-0400 Body height 165.1 cm Herberth Joana Other [facility] Other 08-09-2022 11:00-0400 Body mass index (BMI) [Ratio] 37.87 kg/m2 Herberth Joana Other [facility] Other 08-09-2022 11:00-0400 Body temperature 97.2 [degF] Herberth Joana Other [facility] Other 08-09-2022 11:00-0400 Body weight 103.24 kg Herberth Joana Other [facility] Other 08-09-2022 11:00-0400 Diastolic blood pressure 88 mm[Hg] Herberth Joana Other [facility] Other 08-09-2022 11:00-0400 Respiratory rate 20 /min Herberth Joana Other [facility] Other 08-09-2022 11:00-0400 SaO2% (BldA) [Mass fraction] 95 % Herberth Joana Other [facility] Other 08-09-2022 11:00-0400 Systolic blood pressure 133 mm[Hg] Herberth Joana Other [facility] Other 11-17-2021 10:40-0500 Body height 165.1 cm Herberth Joana Other [facility] Other 11-17-2021 10:40-0500 Body mass index (BMI) [Ratio] 37.97 kg/m2 Herberth Joana Other [facility] Other 11-17-2021 10:40-0500 Body temperature 97.8 [degF] Herberth Joana Other [facility] Other 11-17-2021 10:40-0500 Body weight 103.51 kg Herberth Joana Other [facility] Other 11-17-2021 10:40-0500 Diastolic blood pressure 70 mm[Hg] Herberth Joana Other [facility] Other 11-17-2021 10:40-0500 Respiratory rate 18 /min Herberth Joana Other [facility] Other 11-17-2021 10:40-0500 SaO2% (BldA) [Mass fraction] 94 % Herberth Joana Other [facility] Other 11-17-2021 10:40-0500 Systolic blood pressure 130 mm[Hg] Herberth Joana Other [facility] Other 08-30-2021 13:15-0400 Body height 165.1 cm Rena Ginty Other [facility] Other 08-30-2021 13:15-0400 Body mass index (BMI) [Ratio] 36.61 kg/m2 Rena Ginty Other [facility] Other 08-30-2021 13:15-0400 Body temperature 98.7 [degF] Rena Ginty Other [facility] Other 08-30-2021 13:15-0400 Body weight 99.79 kg Rena Ginty Other [facility] Other 08-30-2021 13:15-0400 SaO2% (BldA) [Mass fraction] 90 % Rena Ginty Other [facility] Other Encounters Encounter Date Encounter Type Care Provider Facility Start: 07-15-2024 End: 07-15-2024 ambulatory Jayshree Vargas MD Facility:[facility] Start: 07-11-2024 End: 07-11-[address] [facility] Start: 07-11-2024 End: 07-11-2024 ambulatory AIDA BLANC Not Available Start: 07-02-2024 End: 07-02-[address] [facility] Start: 06-25-2024 ambulatory [facility] Start: 06-24-2024 End: 06-24-2024 ambulatory Jayshree Vargas MD Facility:[facility] Start: 06-21-2024 End: 06-21-[address] [facility] Start: 06-12-2024 End: 06-12-2024 ambulatory AIDA BLANC Not Available Start: 05-13-2024 End: 05-13-2024 ambulatory [facility] Start: 05-06-2024 End: 05-06-2024 ambulatory [...] End: 03-14-2024 ambulatory Steph Collier Work Phone: [facility] Work Phone: Start: 03-14-2024 End: 03-14-2024 Patient encounter procedure Steph Collier Work Phone: [facility] Work Phone: Start: 03-06-2024 Non-patient / Non-visit Steph Collier Work Phone: [facility] [employer] Work Phone: Start: 02-26-2024 End: 02-26-2024 ambulatory [...] 09-07-2023 End: 09-07-2023 ambulatory Herberth Joana Other [facility] Other Start: 09-07-2023 Telephone encounter Herberth Joana [facility] Start: 08-28-2023 End: 08-28-2023 ambulatory Herberth Joana Other [facility] Other Start: 08-28-2023 Telephone encounter Herberth Joana [facility] Start: 08-21-2023 End: 08-21-2023 ambulatory Jayshree Vargas MD Facility: [facility] Start: 08-17-2023 End: 08-17-2023 ambulatory Herberth Joana Other [facility] Other Start: 08-17-2023 Office outpatient visit 25 minutes Herberth Joana [facility] Start: 04-04-2023 End: 04-04-2023 ambulatory SHAIKH Dimitry OHARA Facility:[facility] Start: 03-24-2023 End: 03-25-[address] STEPH GRANADOS Facility:[facility] Start: 03-02-2023 End: 03-02-2023 ambulatory Herberth Joana Other [facility] Other Start: 03-02-2023 Office outpatient visit 25 minutes Herberth Joana [facility] Start: 02-25-2023 End: 02-26-2023 ambulatory HERBERTH JOANA Facility:[facility] Start: 02-22-2023 End: 02-23-2023 ambulatory BO MCCLAIN . Facility:[facility] Start: 12-15-2022 End: 12-16-[address] JACK HALL . Facility:[facility] Start: 12-08-2022 End: 12-08-2022 ambulatory Shaikh Lev Facility:[facility] Start: 12-08-2022 End: 12-08-2022 Admission to same day surgery center MD Shaikh Ohara Work Phone: [facility] Work Phone: Start: 12-08-2022 End: 12-08-2022 ambulatory MD Shaikh Ohara Work Phone: [facility] Work Phone: Start: 11-11-2022 End: 11-11-[address] JACK HALL . Facility: Start: 11-09-2022 End: 11-09-2022 ambulatory Azkatherine Bakhous Other [facility] Other Start: 11-09-2022 Telephone encounter Azkatherine Bakhous [facility] Start: 08-19-2022 End: 08-20-2022 ambulatory HERBERTH JOANA Facility:[facility] Start: 08-09-2022 End: 08-09-2022 ambulatory Herberth Joana Other [facility] Other Start: 08-09-2022 Office outpatient visit 10 minutes Herberth Joana [facility] Start: 08-09-2022 Telephone encounter Herberth Joana [facility] Start: 08-05-2022 Telephone encounter Herberth Joana [facility] Start: 08-05-2022 End: 08-06-2022 ambulatory HERBERTH JOANA [facility] Other Start: 07-08-2022 End: 07-08-2022 ambulatory Gato Loco Other [facility] Other Start: 07-08-2022 Telephone encounter Gato Cesar [facility] Start: 07-05-2022 End: 07-06-2022 ambulatory SAUNDERS H FAWWAD Facility:[facility] Start: 06-08-2022 End: 06-09-2022 ambulatory SAUNDERS H FAWWAD Facility:[facility] Start: 06-07-2022 End: 06-07-2022 ambulatory SAUNDERS H FAWWAD Facility:[facility] Start: 01-24-2022 End: 01-25-2022 ambulatory PHYSICIAN UNKNOWN Facility:[facility] Start: 11-17-2021 End: 11-17-2021 ambulatory Herberth Joana Other [facility] Other Start: 11-17-2021 Office outpatient visit 15 minutes Herberth Joana [facility] Start: 08-30-2021 Office outpatient visit 15 minutes Rena Marysolkamranchioma [facility] Start: 09-11-2020 End: 09-11-2020 Chart abstracting Miguelito Buck Work Phone: Hematology/Oncology Start: 09-11-2020 End: 09-11-2020 Patient encounter procedure External Provider [facility] Start: 09-11-2020 Results Only External Provider Exter [facility]al[facility] Start: 09-30-2019 End: 09-30-2019 Patient encounter procedure [facility] [place] Start: 07-07-2017 End: 07-07-2017 Admission to day surgery [facility] Start: 05-24-2004 Evaluation and management of inpatient [facility] [place] Start: 04-26-2004 Evaluation and management of inpatient [facility] [place] Procedures Date Procedure Procedure Detail Performing Clinician Start: 12-08-2022 Colonoscopy MD Shaikh Ohara Work Phone: Start: 09-11-2020 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 Farm Operator al Provider Start: 09-11-2020 EXTERNAL LAB External P rovider Start: 09-11-2020 EXTERNAL PROCEDURE Exte rnal Provider Start: 09-30-2019 Ultrasonography of b ilateral kidneys Steph Collier Plan of Treatment Date Care Activity Detail Author Start: 12-08-2022 [facility] Start: 07-07-2020 Influenza vaccination INFLUENZA (#1) [facility] Start: 2006 SHINGRIX VACCINE (1 of 2) SHINGRIX VACCINE (1 of 2) [facility] Start: 2006 Tuberculosis screening COLORECTAL CANCER SCREENING,SEE MODIFIER [facility] Start: 2001 DIABETES SCREEN DIABETES SCREEN [facility] Start: 2001 LIPID SCREEN LIPID SCREEN [facility] Start: 1996 Mammography MAMMOGRAM [facility] Start: 1986 HPV TESTING HPV TESTING [facility] Start: 1977 PAP TESTING PAP TESTING [facility] Start: 1975 Urine microalbumin profile DTAP,TDAP,TD (1 - Tdap) [facility] Start: 1974 HEPATITIS C SCREENING HEPATITIS C SCREENING [facility] Start: 1974 HIV SCREENING HIV SCREENING [facility] Patient Education Colon Polypect shahram Hemorrhoids (DC) Diverticulosis (DC) [facility] Work Phone: [facility] Car[facility] engle Immunizations Immunization Date Immunization Notes Care Provider Henrietta donatofernanda 07-18-2018 Depo-Medrol 40 mg Rena Gint y Other [facility] Other 01-31-2018 Depo-Medrol 40 mg Rena Gint y Other [facility] Other 08-09-2017 influenza virus vaccine, unspecified formulation Steph Ros Work Phone: [facility] 08-09-2017 influenza, seasonal, injectable, preservative free Rena Ginty Other [facility] Other Payers Date Payer Category Payer Unknown 2022 Self-pay [id number] 2021 Medicare [id number] 2020 Medicaid [id number] 2019 Medicaid MEDICAID [facility] MEDICAID [id number] 2019-Present Medicaid [id number] 2016 Medicare MEDICARE MEDICAR E A AND B [id number] 2016-Present [place] [id number] 1959 Unknown [id number] 1956 Unknown [id number] 2.16.840.1.855282.3.579.2.647 1956 Unknown [id number] 2.16.840.1.133194.3.579.2.593 1956 Unknown [id number] 2.16.840.1.870230.3.579.2.593 1956 Unknown [id number] 2.16.840.1.009809.3.579.2.593 1956 Unknown [id number] 2.16.840.1.076690.3.579.2.593 1956 Unknown [id number] 2.16.840.1.321213.3.579.2.593 1956 Unknown [id number] 2.16.840.1.525812.3.579.2.593 1956 Unknown [id number] 2.16.840.1.628782.3.579.2.593 1956 Unknown [id number] 2.16.840.1.662030.3.579.2.593 1956 Unknown [id number] 2.16.840.1.784302.3.579.2.593 1956 Unknown [id number] 2.16.840.1.036696.3.579.2.593 1956 Unknown [id number] 2.16.840.1.160128.3.579.2.593 1956 Unknown [id number] 2.16.840.1.134208.3.579.2.1259 1956 Unknown [id number] 2.16.840.1.960870.3.579.2.1259 1956 Unknown [id number] 2.16.840.1.658877.3.579.2.1259 1956 Unknown [id number] 2.16.840.1.306548.3.579.2.1259 1956 Unknown [id number] 2.16.840.1.504939.3.579.2.125 1956 Unknown [id number] 2.16.840.1.566701.3.579.2.1258 1956 Unknown [id number] 2.16.840.1.443840.3.579.2.1258 1956 Unknown [id number] 2.16.840.1.579229.3.579.2.1258 1956 Unknown [id number] 2.16.840.1.282984.3.579.2.1258 1956 Unknown [id number] 2.16.840.1.998711.3.579.2.1258 1956 Unknown [id number] 2.16.840.1.114150.3.579.2.1258 1956 Unknown [id number] 2.16.840.1.133418.3.579.2.1258 1956 Unknown [id number] 2.16.840.1.837722.3.579.2.1258 1956 Unknown [id number] 2.16.840.1.387419.3.579.2. 1956 Unknown [id number] 2.16.840.1.809782.3.579.2. 1956 Unknown [id number] 2.16.840.1.119154.3.579.2. 1956 Unknown [id number] 2.16.840.1.173679.3.579.2. 1956 Unknown [id number] 2.16.840.1.248768.3.579.2. 1956 Unknown [id number] 2.16.840.1.697208.3.579.2. 1956 Unknown [id number] 2.16.840.1.342271.3.579.2. 1956 Unknown [id number] 2.16.840.1.904855.3.579.2.196 1956 Unknown [id number] 2.16.840.1.480974.3.579.2.196 Medicare [id number] Unknown HCAP/HFA/FAP Active [id number] Unknown [id number] 2.16.840.1.226088.3.579.2.531 Social History Date Type Detail Facility Tobacco smoking stat [facility] Unknown if ever smoked [facility] Start: 1955 Sex Assigned At Female [facility] Start: 09-11-2020 End: 03-14-2024 Tobacco smoking status OKIS Never smoker [facility] Start: 09-11-2020 Tobacco use and exposure Never used [facility] Start: 09-11-2020 Alcohol intake Lifetime non-d my (finding) [facility] Start: 09-11-2020 History SDOH Alcohol Frequency 1 [facility] Sex Assigned At Not on file [facility] Sex Assigned At Sex Assigned At [facility] Other Goals Date Patient Goal Desired Activity [...] Age: 68 y.o. 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 Her family history is positive for COPD [...] was initiated by the patient and conducted uuv-vzqu-hd-face with use of audio-only real time telephone communication between patient and provider for a virtual visit. Verbal consent to provide and bill this service was obtained on: 07/11/24 No signature was obtained due to the COVID-19 pandemic. Past Medical History: Diagnosis Date Allergic rhinitis Anemia Asthma Cancer ([facility]) Chronic heart failure with preserved ejection fraction ([facility]) Chronic hypoxic respiratory failure ([facility] Chronic kidney disease COPD (chronic obstructive pulmonary disease) ([facility]) Coronary artery disease Depression Diabetes mellitus ([facility]) Dyspnea GERD (gastroesophageal reflux disease) Hyperlipidemia Lumbar spondylosis Other secondary pulmonary hypertension ([facility]) Pneumonia Primary osteoarthritis of right hip [...] by mouth every other day. Historical Provider, lnrgxfgikcb-vhhbvjbej-adkandcx 100-62.5-25 mcg blister with device Historical Provider, [...] (Theragran-M) 9 mg (more content not included)... [facility] 07-02-2024 Note Attestation signed by Ghulam [...] chronic cough POSTPROCEDURE DIAGNOSIS: Severe tracheobronchomalacia PROCEDURE FACING MACHINE OPERATOR: Goran Canseco ATTENDING PHYSICIAN: Dr. Ghulam Petersen [...] by trained RN and supervised by the Laborer. Continuous monitoring of heart rate, respiratory rate, [...] 1-2 weeks for treatment options for tracheobronchomalacia [facility] 07-02-2024 Note Patient: Yannick Champion Pre-sedation Evaluation: Sedation necessary for: Analgesia Requesting service: Pulmonary History of Present Illness: Refer to H &P SENIOR APPLICATIONS ARCHITECT/Current Medications: Reviewed Recent sedation/surgery (24 hours): No Review of Systems: Negative NPO guidelines met: Yes Physical Exam: Airway Mallampati: II Neck ROM: full Cardiovascular (-) murmur, friction rub, carotid bruits Dental Pulmonary (+) on nasal cannula (-) tachypnea, accessory muscle use (-) wheezes, rales Plan: ASA 3 Moderate Proceed with consious sedation for Bronchoscopy and BAL [facility] 06-25-2024 Note Attestation signed by Emelia [...] Age: 68 y.o. : 1955 Account No.: [id number] Referring physician: Dr. Bo Mcclain Chief complaint: Recurreny pneumonia HPI Diana Champion is a 68 y.o. female with PMHx of reportedly COPD, chronic hypoxic respiratory failure on 2L home O2 who is presenting to clinic as a new patient after being referred by Dr. Bo Baker of [facility]. 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 Her family history is positive for COPD [...] Medical History: Diagnosis Date Asthma Cancer ([facility]) COPD (chronic obstructive pulmonary disease) (CMS/HCC) [...] mouth every other day. Yes Historical Provider, vakcicuyysw-kciqpjgho-zzjtybmz 100-62.5-25 mcg blister with device Yes Historical [...] mEq ER ta (more content not included)... [facility] 05-13-2024 Note [facility] Cardiology Clinic Note Chief Complaint: Patient here for 1 year follow up CAD and hypertension. She was recently discharged from [facility] for Covid-19. She says hydrochlorothiazide was [...] breath since then. She has seen her nail assembly machine operator. Her chest pain is noncardiac. She [...] a past medical history of Asthma, Cancer ([facility]), COPD (chronic obstructive pulmonary disease) ([facility]), Coronary artery disease, GERD (gastroesophageal reflux [...] mouth every other day., Disp: , Rfl: feipumwlnta-yxgqssnyb-kavusdmk 100-62.5-25 mcg blister with device, , Disp: [...] Examination: GENERAL: a (more content not included)... [facility] 09-07-2023 Evaluation note Encounter Date Diagnosis Assessment Notes Sep, Hypomagnesemia (ICD-10 - E83.42) [facility] Other 10-23-2023 Evaluation note* Encounter Date Diagnosis Assessment Notes Treatment Notes Treatment Clinical Notes Aug, Nico guillen kid w cr kid I-IV (ICD-10 - I12.9) [facility] Other 10-12-2023 Evaluation note* Encounter Date Diagnosis [...] PPI induced GI losses. Continue oral Magnesium [facility] Other 05-19-2023 NotePROCEDURE: XR HIP RT 2 3V W PELVIS HISTORY: Pain in right hip joint , chronic COMPARISON: XR L-spine 02/26/2019, XR left hip with pelvis 03/11/2017 FINDINGS: BONES:Complete loss of the right hip joint space with wjaa-tt-yqzb articulation, subchondral sclerosis and cysts, and large periarticular degenerative osteophytes. No fracture or dislocation. Left hip replacement. Mechanical fusion of L5-S1 and moderate dextroscoliosis of lumbar spine. SOFT TISSUES:No visible soft tissue swelling. EFFUSION:None visible. OTHER: Negative. IMPRESSION: 1. Marked degenerative joint disease of the right hip; progressed since prior study. 2. Stable surgical changes. Electronically authenticated by: STEPH GRANADOS Date: 2023-03-24 12:55[facility]04[facility]27[facility] Evaluation note* Encounter Date Diagnosis [...] PPI induced GI losses. Continue oral Magnesium [facility]* Encounter Date Diagnosis Assessment Notes Treatment Notes Treatment Clinical Notes Nov, Hypokalemia (ICD-10 - E87.6) Nov, Hypomagnesemia (ICD-10 - E83.42) [facility] Other 10-04-2022 Evaluation note* Encounter Date Diagnosis [...] office does not accept her new insurance. [facility] Other 09-02-2022 Evaluation note* Encounter Date Diagnosis Assessment Notes Treatment Notes Treatment Clinical Notes Jul, History of colon cancer (ICD-10 - Z85.038) [facility] Other 01-12-2022 Evaluation note* Encounter Date Diagnosis [...] potassium wasting. I have prescribed oral potassium. [facility] Other 10-25-2021 Evaluation note* Encounter Date Diagnosis [...] [facility] Care At Home document [facility] Other Evaluation noteNo [facility] Other Evaluation note* Diagnosis Onset Date Resolution Status History of colon cancer acut e [facility] Work Phone: Evaluation note* Diagnosis Onset Date Resolution Status Hypokalemia acute Hypomagnesemia acute Stage 3 chronic kidney disease acute COVID noneactive Pneumonia noneactive [facility] Work Phone: [facility] general Narrative - Reported* Type Description Date [...] IN 08/2019 Hospitalization History HIP REVISION 03/2020 [facility] Other [facility] general Narrative - Reported* Type Description Date [...] Hospitalization History COVID X 2 WEEKS 04/2023 [facility] Other Hospital Discharge instructions Additional Instructions DISCHARGE [...] if you have any problems. -Office number [phone] Work Phone: Advance Directives No Advanced [...] or prosecute any alcohol or drug abuse patient.[facility] Hospital[facility] the event this information is protected by the Federal Confidentiality of Alcohol and Drug Abuse Patient Records regulations: The Federal rules restrict any use of the information to criminally investigate or prosecute any alcohol or drug abuse patient.[facility] HospitalIn the event this information is protected by the Federal Confidentiality of Alcohol and Drug Abuse Patient Records regulations: The Federal rules restrict any use of the information to criminally investigate or prosecute any alcohol or drug abuse patient.[facility] HospitalIn the event this information is protected by the Federal Confidentiality of Alcohol and Drug Abuse Patient Records regulations: The Federal rules restrict any use of the information to criminally investigate or prosecute any alcohol or drug abuse patient[facility] INFORMATION SOURCE (unrecogn ized section and content) DATE CREATED AUTHOR 03/03/2022 [facility] DATE CREATED AUTHOR AUTHOR'S ORGANIZ ATION [facility]/17/2023 [facility] DATE CREATED AUTHOR AUTHOR'S ORGANIZ ATION 06/07/2023 [facility] DATE CREATED AUTHOR AUTHOR'S ORGANIZ ATION 07/12/2024 [facility] EPIC DATE CREATED AUTHOR AUTHOR'S ORGANIZ ATION 07/13/2024 [facility] DATE CREATED AUTHOR AUTHOR'S ORGANIZ ATION 07/21/2024 [facility] REASON FOR VISIT (unrecogniz ed [...] BE BASED ON THE PRIMARY CLINICAL RECORDS. [facility] [employer] [facility]. provides no warranty or guarantee of the accuracy or completeness of information in this document.
--- NOTE | 2024-08-14 09:18 | P.CN_ITS ---
Consult Note: HPI Data of Consult Patient: known to practice within the last 3 years Requesting Physician: Violet Saucedo NP Primary Care Provider: AIDA BLANC Consult Narrative Reason for consult: f/u Narrative: Diana Champion a pleasant 69 year old female presents for evaluation and management of middle and low back pain. Today rating pain 1/10 in mid back, noticing increase in low back pain as well as bilateral leg pain/weakness with standing walking activity and cold weather, increased to moderate to severe. PT has failed to benefit from PT and conservative measures in the past, hx of L5-S1 fusion. Patient needs a right ELZA but is unable to do that at this time. Patient is following with pulmonology and PCP for pneumonia and chronic lung disease, on continuous o2. Patient recently underwent thoracic xray which is consistent with moderate degenerative changes and multilevel facet arthropathy. Recently underwent right and left T7-8 T8-9 RFA with significant ongoing relief. cc:: CC: Violet Saucedo NP Review of Systems ROS Status of ROS 10 or more systems reviewed and unremark able except as noted in history and below Musculoskeletal Reports: back pain and extremity pain PFSH COUNTS INCLUDE 234 BEDS AT THE [facility] Medical History (Updated 08/10/24 @ 09:12 by Tapan Barboza MD) Acute exacerbation of COPD with asthma ?J44.1 - Chronic obstructive pulmonary disease with (acute) exacerbation (ICD-10) ?J45.901 - Unspecified asthma with (acute) exacerbation (ICD-10) Lumbar radiculopathy ?M54.16 - Radiculopathy, lumbar region (ICD-10) Encounter for long-term opiate analgesic use ?Z79.891 - [facility]FP (current) use of opiate analgesic (ICD-10) Failed back syndrome ?M96.1 - Postlaminectomy syndrome, not elsewhere classified (ICD-10) Acute exacerbation of chronic low back pain ?M54.50 - Low back pain, unspecified (ICD-10) ?G89.29 - Other chronic pain (ICD-10) Thoracic spondylosis ?M47.814 - Spondylosis without myelopathy or radiculopathy, thoracic region (ICD-10) Hypoxia ?R09.02 - Hypoxemia (ICD-10) URI (upper respiratory infection) ?J06.9 - Acute upper respiratory infection, unspecified (ICD-10) Orthostasis ?I95.1 - Orthostatic hypotension (ICD-10) Community acquired pneumonia ?J18.9 - Pneumonia, unspecified organism (ICD-10) Severe malnutrition ?E43 - Unspecified severe protein-calorie malnutrition (ICD-10) Acute exacerbation of chronic obstructive pulmonary disease (COPD) ?J44.1 - Chronic obstructive pulmonary disease with (acute) exacerbation (ICD-10) Severe persistent asthma with exacerbation ?J45.51 - Severe persistent asthma with (acute) exacerbation (ICD-10) Morbid obesity ?E66.01 - Morbid (severe) obesity due to excess calories (ICD-10) Other pulmonary collapse ?J98.19 - Other pulmonary collapse (ICD-10) 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 - Critical illness myopathy (ICD-10) Chronic respiratory failure with hypoxia ?J96.11 - Chronic respiratory failure with hypoxia (ICD-10) Bronchitis ?J40 - Bronchitis, not specified as acute or chronic (ICD-10) Hypomagnesemia ?E83.42 - Hypomagnesemia (ICD-10) Acute hypokalemia ?E87.6 - Hypokalemia (ICD-10) Pneumonia ?J18.9 - Pneumonia, unspecified organism (ICD-10) Acute exacerbation of chronic obstructive pulmonary disease ?J44.1 - Chronic obstructive pulmonary disease with (acute) exacerbation (ICD-10) Myofascial pain ?M79.18 - Myalgia, other site (ICD-10) Greater trochanteric bursitis ?M70.60 - Trochanteric bursitis, unspecified hip (ICD-10) Osteoarthritis of right hip ?M16.11 - Unilateral primary osteoarthritis, right hip (ICD-10) Lumbar spondylosis ?M47.816 - Spondylosis without myelopathy or radiculopathy, lumbar region (ICD-10) Lumbar postlaminectomy syndrome ?M96.1 - Postlaminectomy syndrome, not elsewhere classified (ICD-10) Lumbar stenosis with neurogenic claudication ?M48.062 - Spinal stenosis, lumbar region with neurogenic claudication (ICD- 10) Depression ?F32.A - Depression, unspecified (ICD-10) Chronic low back pain ?M54.50 - Low back pain, unspecified (ICD-10) ?G89.29 - Other chronic pain (ICD-10) Hypoxia ?R09.02 - Hypoxemia (ICD-10) Heart murmur ?R01.1 - Cardiac murmur, unspecified (ICD-10) Chronic obstructive pulmonary disease ?J44.9 - Chronic obstructive pulmonary disease, unspecified (ICD-10) Asthma ?J45.909 - Unspecified asthma, uncomplicated (ICD-10) Surgical History Status post hip surgery ?Z98.890 - Other specified postprocedural states (ICD-10) H/O foot surgery ?Z98.890 - Other specified postprocedural states (ICD-10) H/O tubal ligation ?Z98.51 - Tubal ligation status (ICD-10) History of lumbar fusion ?Z98.1 - Arthrodesis status (ICD-10) Family History Mother Family history of CHF (congestive heart failure) Family history of hypertension Father Family history of hypertension Family history of myocardial infarction Social History Within the past year, how often did you have a drink containing alcohol: never Score interpretation: A score less than 3 is consistent with normal alcohol consumption. Smoking status: Never smoker Non-prescribed substance use: denies use Previous occupational history: retired Highest level of school completed/degree received: Associate degree: occupational, technical, vocational program Are you now , , , , never or living with a partner: In a typical week, how many times do you talk on the telephone with family, friends, or neighbors: 3 or more times per week How often do you get together with friends or relatives: 3 or more times per week How often do you attend mandaen or religion services: 4 or more times per year Do you belong to any clubs or organizations such as mandaen groups unions, fraternal or athletic groups, or school groups: no Total score: 2 Score interpretation: A score of greater than or equal to 2 indicates the lowest level of social isolation. Little interest or pleasure in doing things: not at all Feeling down, depressed, or hopeless: not at all Feel stressed/tense/nervous/anxious/difficulty sleeping: not at all Do you think of yourself as: straight/heterosexual Gender Identity: female Meds Home Medications and Allergies Home Medications ?Medication ?Instructions ?Recorded ?Confirmed ?Type fluticasone fur. 200 mcg-umeclid 1 inh inhalation Q24H COPD 04/10/23 08/08/24 History 62.5 mcg-vilant 25 mcg inhalat.powder (Trelegy Ellipta) magnesium oxide 400 mg (241.3 mg 400 mg PO DAILY 04/10/23 08/08/24 History magnesium) tablet omeprazole 20 mg capsule,delayed 20 mg PO BID 04/10/23 08/08/24 History release montelukast 10 mg tablet 10 mg PO DAILY 09/14/23 08/08/24 History pramipexole 0.25 mg tablet 0.25 mg PO QPM 09/14/23 08/08/24 History (Mirapex) paroxetine HCl 30 mg tablet 30 mg PO QDAY 11/25/23 08/08/24 History pregabalin 75 mg capsule 75 mg PO BID 11/25/23 08/08/24 History solifenacin 10 mg tablet 10 mg PO QDAY 11/25/23 08/08/24 History trazodone 100 mg tablet 100 mg PO .qhs 11/25/23 08/08/24 History baclofen 10 mg tablet 10 mg PO Q8H 02/03/24 08/08/24 History albuterol sulfate 2.5 mg/3 mL 2.5 mg continuous nebulization QID 06/06/24 08/09/24 History (0.083 %) solution for nebulization shortness of breath or wheezing furosemide 20 mg tablet 20 mg PO DAILY 06/28/24 08/08/24 History sodium chloride 0.9 % for 2.5 ml inhalation Q8H 06/28/24 08/08/24 History nebulization latanoprost 0.005 % eye drops 1 drp ophthalmic (eye) .HS 08/09/24 08/09/24 History amoxicillin 875 mg-potassium 1 tab PO Q12H 14 days #28 tabs 08/11/24 Rx clavulanate 125 mg tablet azithromycin 250 mg tablet 250 mg PO DAILY 4 days #4 tabs 08/11/24 Rx (Zithromax) prednisone 10 mg tablets in a dose 10 mg PO DAILY #39 ea 08/11/24 Rx pack Allergies Allergy/AdvReac Type Severity Reaction Status Date / Time No Known Drug Allergies Allergy Verified 06/28/24 19:48 Exam Constitutional Documenting provider has reviewed patient's vital signs: yes Common normals: no apparent distress, oriented x3, healthy appearing, alert and well nourished General appearance: cooperative HENMT Common normals: normocephalic, hearing grossly normal bilaterally and moist oral mucous membranes Head and scalp: normocephalic Eye Common normals: PERRL Pupil: PERRL Neck & C-Spine Common normals: full ROM General: normal visual inspection Chest Common normals: inspection of chest normal Respiratory Common normals: normal respiratory effort, no retractions and no use of accessory muscles Back & Pelvis Thoracic spine/upper back: thoracic ROM normal; no pain with ROM, no thoracic spinal tenderness and no paraspinal muscle tenderness Lumbar spine/lower back: ROM limited, pain with ROM and straight leg raise negative bilaterally; no lumbar spinal tenderness Other: altered sensation to bilateral L4/5 pattern, strength 4/5 in BLE. pain increased with standing and walking, improved upon sitting and with forward flexion Extremity Common normals: normal to inspection and full ROM Neuro Common normals: oriented x3, CN's II-XII intact bilaterally, moves all extremities, no focal motor deficits, no sensory deficits noted and deep tendon reflexes 2+ bilaterally Sensorium/orientation: alert Motor exam: strength 5/5 throughout and no movement abnormalities noted Psych Common normals: mental status grossly normal, thought process normal, cooperative, affect normal, speech normal and activity/motor behavior normal Speech: normal speech Thought process: normal thought process Results Additional Findings Additional findings: If on a controlled substance or opioids, I have checked an [place] report on this patient and there are no aberrancies noted in the prescribing history.??If on a controlled substance or opioid a drug screen was completed and reviewed within the last year, and if there has not been a drug screen completed we ordered one today to monitor higher risk, state monitored pain medication use. As part of providing excellent, safe, comprehensive care, the following was completed at our patient's visit: 1. A medication reconciliation and review to ensure accurate knowledge of current/active medications, including asking our patients to inform us about any [id number] medications or herbal remedies/nutritional supplements/alternative remedies. 2. A review to specifically ensure our patients have had annual screening for screening for depression, screening for tobacco use, and screening for unhealthy alcohol use. For concerning screenings had a discussion with the patient, provided patient education, and recommended follow-up with primary care provider when appropriate. If patient noted with a risk of falling, they received education on strength, gait, and balance training to prevent future risk of falling. Assessment and Plan Assessment and Plan (1) Lumbar stenosis with neurogenic claudication: (2) Thoracic spondylosis: Assessment and Plan: significant ongoing improvement from right and left T7-8 T8-9 RFA (3) Failed back syndrome: (4) Lumbar spondylosis: Plan previous bilateral L4-5 TFESI provided >50% improvement in lumbar stenosis with NC greater than 3 months, at this time with worsening symptoms i suggest repeating. risks vs benefits reviewed. pt to call to schedule continue HEP as tolerated continue medications through PCP f/u as needed or 2 weeks after TFESI
== END 2024-08-14 08:49 | disposition home or self-care (01) ==
LOC: PM 08:49
PROVIDERS: Visit Provider Nurse Practitioner
DX: M48.062 Spinal stenosis, lumbar region with neurogenic claudication (principal); M47.814 Spondylosis without myelopathy or radiculopathy, thoracic region; M96.1 Postlaminectomy syndrome, not elsewhere classified; M47.816 Spondylosis without myelopathy or radiculopathy, lumbar region
CPT/HCPCS: G0463

== ENCOUNTER 2024-11-12 11:12 | Inpatient (IN) | payer MEDICARE, SELFPAY ==
[2024-11-12] VITALS (34 sets, daily range): BP systolic 127–171; BP diastolic 73–98; PULSE 59–90; TEMP 36.6–36.9; O2SAT 88–94; BMI 40.7; BMI 40.6
--- NOTE | 2024-11-12 11:40 | ED.GENADUL1 ---
HPI HPI - General Adult General Chief complaint: Upper Respiratory Infection Stated complaint: DIARRHEA COUGHING ACHINESS SOB Time Seen by Provider: 11/12/24 11:35 Source: patient Mode of arrival: Wheelchair History of Present Illness HPI narrative: Patient presented to the emergency department for evaluation of not feeling well. Patient states that since she has not been feeling well. She has had cough, nasal congestion, rhinorrhea, sore throat, nausea, dry heaving, multiple episodes daily of loose watery diarrhea, nonbloody, not mucousy, cough with sputum production, fevers, body aches, myalgias and arthralgias. Difficulty breathing, weakness, fatigue, chest pain or shortness of breath. States that she is on home oxygen always, has COPD and takes breathing treatments as needed. Physic she has also been wheezing more over the last couple days, is up and going on since . Went to her PCP office today, and she was swabbed and sent here. Related Data Home Medications ?Medication ?Instructions ?Recorded ?Confirmed fluticasone fur. 200 mcg-umeclid 1 inh inhalation Q24H COPD 04/10/23 08/08/24 62.5 mcg-vilant 25 mcg inhalat.powder (Trelegy Ellipta) magnesium oxide 400 mg (241.3 mg 400 mg PO DAILY 04/10/23 08/08/24 magnesium) tablet omeprazole 20 mg capsule,delayed 20 mg PO BID 04/10/23 08/08/24 release montelukast 10 mg tablet 10 mg PO DAILY 09/14/23 08/08/24 pramipexole 0.25 mg tablet 0.25 mg PO QPM 09/14/23 08/08/24 (Mirapex) paroxetine HCl 30 mg tablet 30 mg PO QDAY 11/25/23 08/08/24 pregabalin 75 mg capsule 75 mg PO BID 11/25/23 08/08/24 solifenacin 10 mg tablet 10 mg PO QDAY 11/25/23 08/08/24 trazodone 100 mg tablet 100 mg PO .qhs 11/25/23 08/08/24 baclofen 10 mg tablet 10 mg PO Q8H 02/03/24 08/08/24 albuterol sulfate 2.5 mg/3 mL 2.5 mg continuous nebulization QID 06/06/24 08/09/24 (0.083 %) solution for nebulization shortness of breath or wheezing furosemide 20 mg tablet 20 mg PO DAILY 06/28/24 08/08/24 sodium chloride 0.9 % for 2.5 ml inhalation Q8H 06/28/24 08/08/24 nebulization latanoprost 0.005 % eye drops 1 drp ophthalmic (eye) .HS 08/09/24 08/09/24 Previous Rx's ?Medication ?Instructions ?Recorded amoxicillin 875 mg-potassium 1 tab PO Q12H 14 days #28 tabs 08/11/24 clavulanate 125 mg tablet azithromycin 250 mg tablet 250 mg PO DAILY 4 days #4 tabs 08/11/24 (Zithromax) prednisone 10 mg tablets in a dose 10 mg PO DAILY #39 ea 08/11/24 pack doxycycline hyclate 100 mg capsule 100 mg PO BID 10 days #20 caps 11/12/24 prednisone 50 mg tablet 50 mg PO DAILY 5 days #5 tabs 11/12/24 Allergies Allergy/AdvReac Type Severity Reaction Status Date / Time No Known Drug Allergies Allergy Verified 06/28/24 19:48 Opioid HPI Opioid Management Most Recent Opioid Data: Last Pain Scale 4 08/10/24 23:18 08/10/24 Last Pain Intensity 0 08/10/24 09:52 08/10/24 Last ORT Total Score 6 08/08/24 21:55 08/08/24 Last ORT Risk Category Moderate Risk 08/08/24 21:55 08/08/24 Review of Systems ROS Narrative Negative unless otherwise stated in the HPI PFSH PFS Medical History (Updated 11/12/24 @ 13:16 by Lemuel Perrin MD) Mediastinal lymphadenopathy ?R59.0 - Localized enlarged lymph nodes (ICD-10) Tracheobronchomalacia ?J39.8 - Other specified diseases of upper respiratory tract (ICD-10) Restrictive lung disease ?J98.4 - Other disorders of lung (ICD-10) CAD (coronary artery disease) ?I25.10 - Atherosclerotic heart disease of [place] coronary artery without angina pectoris (ICD-10) Chronic heart failure with preserved ejection fraction (HFpEF) ?I50.32 - Chronic diastolic (congestive) heart failure (ICD-10) Hypertension ?I10 - Essential (primary) hypertension (ICD-10) Acute exacerbation of COPD with asthma ?J44.1 - Chronic obstructive pulmonary disease with (acute) exacerbation (ICD-10) ?J45.901 - Unspecified asthma with (acute) exacerbation (ICD-10) Lumbar radiculopathy ?M54.16 - Radiculopathy, lumbar region (ICD-10) Encounter for long-term opiate analgesic use ?Z79.891 - health analytics consultant (current) use of opiate analgesic (ICD-10) Failed back syndrome ?M96.1 - Postlaminectomy syndrome, not elsewhere classified (ICD-10) Acute exacerbation of chronic low back pain ?M54.50 - Low back pain, unspecified (ICD-10) ?G89.29 - Other chronic pain (ICD-10) Thoracic spondylosis ?M47.814 - Spondylosis without myelopathy or radiculopathy, thoracic region (ICD-10) Hypoxia ?R09.02 - Hypoxemia (ICD-10) URI (upper respiratory infection) ?J06.9 - Acute upper respiratory infection, unspecified (ICD-10) Orthostasis ?I95.1 - Orthostatic hypotension (ICD-10) Community acquired pneumonia ?J18.9 - Pneumonia, unspecified organism (ICD-10) Severe malnutrition ?E43 - Unspecified severe protein-calorie malnutrition (ICD-10) Acute exacerbation of chronic obstructive pulmonary disease (COPD) ?J44.1 - Chronic obstructive pulmonary disease with (acute) exacerbation (ICD-10) Severe persistent asthma with exacerbation ?J45.51 - Severe persistent asthma with (acute) exacerbation (ICD-10) Morbid obesity ?E66.01 - Morbid (severe) obesity due to excess calories (ICD-10) Other pulmonary collapse ?J98.19 - Other pulmonary collapse (ICD-10) 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 - Critical illness myopathy (ICD-10) Chronic respiratory failure with hypoxia ?J96.11 - Chronic respiratory failure with hypoxia (ICD-10) Bronchitis ?J40 - Bronchitis, not specified as acute or chronic (ICD-10) Hypomagnesemia ?E83.42 - Hypomagnesemia (ICD-10) Acute hypokalemia ?E87.6 - Hypokalemia (ICD-10) Pneumonia ?J18.9 - Pneumonia, unspecified organism (ICD-10) Acute exacerbation of chronic obstructive pulmonary disease ?J44.1 - Chronic obstructive pulmonary disease with (acute) exacerbation (ICD-10) Myofascial pain ?M79.18 - Myalgia, other site (ICD-10) Greater trochanteric bursitis ?M70.60 - Trochanteric bursitis, unspecified hip (ICD-10) Osteoarthritis of right hip ?M16.11 - Unilateral primary osteoarthritis, right hip (ICD-10) Lumbar spondylosis ?M47.816 - Spondylosis without myelopathy or radiculopathy, lumbar region (ICD-10) Lumbar postlaminectomy syndrome ?M96.1 - Postlaminectomy syndrome, not elsewhere classified (ICD-10) Lumbar stenosis with neurogenic claudication ?M48.062 - Spinal stenosis, lumbar region with neurogenic claudication (ICD-10) Depression ?F32.A - Depression, unspecified (ICD-10) Chronic low back pain ?M54.50 - Low back pain, unspecified (ICD-10) ?G89.29 - Other chronic pain (ICD-10) Hypoxia ?R09.02 - Hypoxemia (ICD-10) Heart murmur ?R01.1 - Cardiac murmur, unspecified (ICD-10) Chronic obstructive pulmonary disease ?J44.9 - Chronic obstructive pulmonary disease, unspecified (ICD-10) Asthma ?J45.909 - Unspecified asthma, uncomplicated (ICD-10) Surgical History Status post hip surgery ?Z98.890 - Other specified postprocedural states (ICD-10) H/O foot surgery ?Z98.890 - Other specified postprocedural states (ICD-10) H/O tubal ligation ?Z98.51 - Tubal ligation status (ICD-10) History of lumbar fusion ?Z98.1 - Arthrodesis status (ICD-10) Family History Mother Family history of CHF (congestive heart failure) Family history of hypertension Father Family history of hypertension Family history of myocardial infarction Social History Within the past year, how often did you have a drink containing alcohol: never Score interpretation: A score less than 3 is consistent with normal alcohol consumption. Smoking status: Never smoker Non-prescribed substance use: denies use Previous occupational history: retired Highest level of school completed/degree received: Associate degree: occupational, technical, vocational program Are you now , , , , never or living with a partner: In a typical week, how many times do you talk on the telephone with family, friends, or neighbors: 3 or more times per week How often do you get together with friends or relatives: 3 or more times per week How often do you attend yazdanism or lutheran services: 4 or more times per year Do you belong to any clubs or organizations such as yazdanism groups unions, [employer] or athletic groups, or school groups: no Total score: 2 Score interpretation: A score of greater than or equal to 2 indicates the lowest level of social isolation. Little interest or pleasure in doing things: not at all Feeling down, depressed, or hopeless: not at all Feel stressed/tense/nervous/anxious/difficulty sleeping: not at all Do you think of yourself as: straight/heterosexual Gender Identity: female Exam Narrative Exam Narrative: General: NAD, AAOx3, no distress Eyes: PERRL, EOMI, lids/conjunctiva normal. HEENT: NCAT, mmm Neck: Supple, no LAD, nonmeningeal t Respiratory: respiratory effort normal, speaks in full sentences, no tripod position, no accessory muscle use. Lungs clear to auscultation without rhonchi, wheezes, rales Cardiac: Regular rate and rhythm, no edema, regular s1/s2, no m/g/r Abdomen: Soft, ND/NT. No evidence of fluid wave. No pulsatile masses on exam, rebound tenderness, Cancino sign or pain over Mcburney's point. Skin: Warm, pink and dry. No rashes, dermatoses, petechiae or lesions. Constitutional Vital Signs, click to edit/add: Last Vital Signs Temp 98.5 F 11/12/24 11:20 Pulse 64 11/12/24 14:27 Resp 26 H 11/12/24 11:20 BP 148/77 H 11/12/24 14:06 Pulse Ox 90 L 11/12/24 14:27 O2 Del Method Nasal Cannula 11/12/24 14:27 O2 Flow Rate 3 11/12/24 14:27 Course Vital Signs Vital signs: Vital Signs Temperature 98.5 F 11/12/24 11:20 Pulse Rate 64 11/12/24 11:20 Respiratory Rate 26 H 11/12/24 11:20 Blood Pressure 152/98 H 11/12/24 11:20 Pulse Oximetry 93 L 11/12/24 11:20 Oxygen Delivery Method Nasal Cannula 11/12/24 11:20 Oxygen Delivery Flow Rate 3 11/12/24 11:20 Temperature 98.5 F 11/12/24 11:20 Pulse Rate 64 11/12/24 14:27 Respiratory Rate 26 H 11/12/24 11:20 Blood Pressure 148/77 H 11/12/24 14:06 Pulse Oximetry 90 L 11/12/24 14:27 Oxygen Delivery Method Nasal Cannula 11/12/24 14:27 Oxygen Delivery Flow Rate 3 11/12/24 14:27 Medical Decision Making MDM Narrative Medical decision making narrative: 1144 D/w Pts pcp. She states she sees patient monthly for COPD. Had been there again today. For the same thing. She is having sickness since . Also endorsed some cough, nasal congestion, rhinorrhea, nausea, vomiting, diarrhea. States she has been forcefully coughing so frequently since that now when she coughs very hard and small flecks of blood well,. Was not having any chest pain, shortness of breath. Does endorse wheezing. She was worried that maybe she was getting dehydrated if she needed fluids but had fluid overload because of the CHF that she needed to do it in the hospital so they can monitor her, so they told her to come to the ER. At this time patient is hemodynamically stable, moist mucous membranes, with normal blood pressure, I see no signs or symptoms of dehydration. Satting 93% with her home 3 L nasal cannula. Does have slight wheezing, nebulizer treatments, labs and imaging ordered. 1314 advanced guidance has been given. Vss, pex is benign at this time. Pt to fu with pcp 1-2 days for reeval, rter should sx worsen, persist or become worrysome in any way. Patient with x-ray unchanged from prior. Give patient course of antibiotics to see if that helps. Pt who presented to the ER today for URI symptoms. Patient on exam was well appearing and non toxic appearing. Vitals were reviewed. Patient has no symptoms of otitis media, pneumonia, bacterial pharyngitis or other serious bacterial illness. Respiratory status is unremarkable. At this point in time, patient likely has viral syndrome with no indications for antibiotics. I have recommended fluids and motrin for symptomatic control. Close follow up with PCP. Advanced guidance has been given. Vss, pex is benign at this time. Pt to fu with pcp 1-2 days for reeval, rter should sx worsen, persist or become worrysome in any way. Pt expressed understanding and agreement with plan of care at this time. Will fu as planned. Pt stable for discharge. 1440 patient ended up becoming hypoxic again, increasing cough, shortness of breath. Breathing treatment was done. While patient was getting a breathing treatment which according to respiratory has 8 L of oxygen going through it, patient was only 91%. Symptoms breathing treatment was done patient 89 to 90%. Discussed case with Dr. Ohara, who agreed to admit patient for copd/hypoxia Clinical impression COPD exacerbation hypoxia. Lab Data Labs: Lab Results 11/12/24 11/12/24 Range/Units 11:56 11:57 WBC 9.1 (4.0-11.0) 10^3/uL RBC 4.05 L (4.20-5.40) 10^6/uL Hgb 12.3 (12.0-16.0) g/dL Hct 37.9 (36.0-48.0) % MCV 93.6 (81.0-99.0) fL MCH 30.4 (26.7-34.0) pg MCHC 32.5 (29.9-35.2) g/dL RDW 12.9 (11.0-15.0) % Plt Count 280 (150-450) 10^3/uL MPV 8.7 L (9.5-13.5) fL Neut % (Auto) 71.4 (43.0-75.0) % Lymph % (Auto) 15.2 L (20.5-60.0) % [place] % (Auto) 8.5 (1.7-12.0) % Eos % (Auto) 2.6 (0.9-7.0) % Baso % (Auto) 0.6 (0.2-2.0) % Neut # (Auto) 6.5 (1.4-6.5) 10^3/uL Lymph # (Auto) 1.4 (1.2-3.8) 10^3/uL [place] # (Auto) 0.8 (0.3-0.8) 10^3/uL Eos # (Auto) 0.2 (0.0-0.7) 10^3/uL Baso # (Auto) 0.1 (0.0-0.1) 10^3/uL Abs Immat Gran (auto) 0.15 H (0.00-0.03) 10^3/uL Imm/Tot Granulo (auto) 1.7 H (0.0-0.5) % Sodium 142 (136-145) mmol/L Potassium 3.2 L (3.5-5.1) mmol/L Chloride 104 (98-107) mmol/L Carbon Dioxide 27.9 (21.0-32.0) mmol/L Anion Gap 13.3 BUN 7.0 (7.0-18.0) mg/dL Creatinine 1.08 H (0.55-1.02) mg/dL Est GFR ( Amer) >60 (>=60 mL/min/1.73m^2) Est GFR (Non-Af Amer) 50 L (>=60 mL/min/1.73m^2) BUN/Creatinine Ratio 6.5 Glucose 91 (74-106) mg/dL Calcium 8.2 L (8.5-10.1) mg/dL Influenza Type A Ag Negative Influenza Type B Ag Negative RSV Antigen Not detected (NOT DETECTE) SARS-CoV-2 Ag (CV2AG) Negative (NEGATIVE) Discharge Plan Discharge Chief Complaint: Upper Respiratory Infection Clinical Impression: Upper respiratory infection, Acute exacerbation of chronic obstructive pulmonary disease Patient Disposition: Admitted As Inpatient Time of Disposition Decision: 14:39 Additional Instructions: Follow-up with your PCP in the next 1 to 2 days. Return to the emergency department should symptoms worsen or become worrisome in any way.
--- NOTE | 2024-11-12 11:42 | XR_ITS ---
The [address] [address] Patient Name: JHONATAN MONTOYA MRN: [id number] date: 1955 Sex: F Assigned Patient Location: ER Current Patient Location: ER Accession/Order Number: [id number] Exam Date: 11/12/2024 12:28 Report Date: 11/12/2024 12:54 At the request of: LAURIE AMBROCIO Procedure: XR chest 2V EXAMINATION: XR chest 2V HISTORY: cough COMPARISON: XR chest 08/12/2024 FINDINGS: LUNGS: Linear wispy opacity within right midlung. Mild haziness and stranding within lateral left lung base. VASCULATURE: No increased pulmonary vasculature. PLEURA: No pneumothorax, effusion, or pleural thickening. CARDIAC: No cardiomegaly or cardiac silhouette abnormality. MEDIASTINUM: No visible mass or adenopathy. BONES: No fracture or visible bone lesion. OTHER: Negative. XR/XR chest 2V IMPRESSION: 1. Multifocal mild infiltrates versus atelectasis; slightly changed in configuration compared to prior study, but not significantly increased or decreased. Electronically authenticated by: STEPH GRANADOS Date: 11/12/2024 12:54
[2024-11-12] MEDS: METHYLPREDNISOLONE SOD SUCC PF 125 MG/2 ML VIAL IM (11:52)
[2024-11-12 12:06] LABS: Basophils Absolute Auto 0.1 10^3/uL (0.0-0.1); Basophils Percent Auto 0.6 % (0.2-2.0); Eosinophils Absolute Auto 0.2 10^3/uL (0.0-0.7); Eosinophils Percent Auto 2.6 % (0.9-7.0); Hematocrit 37.9 % (36.0-48.0); Hemoglobin 12.3 g/dL (12.0-16.0); Immature Granulocytes Abs Auto 0.15 10^3/uL (0.00-0.03); Immature Granulocytes Pct Auto 1.7 % (0.0-0.5); Lymphocytes Absolute Auto 1.4 10^3/uL (1.2-3.8); Lymphocytes Percent Auto 15.2 % (20.5-60.0); Mean Corpuscular HGB Conc 32.5 g/dL (29.9-35.2); Mean Corpuscular Hemoglobin 30.4 pg (26.7-34.0); Mean Corpuscular Volume 93.6 fL (81.0-99.0); Mean Platelet Volume 8.7 fL (9.5-13.5); Monocytes Absolute Auto 0.8 10^3/uL (0.3-0.8); Monocytes Percent Auto 8.5 % (1.7-12.0); Neutrophils Absolute Auto 6.5 10^3/uL (1.4-6.5); Neutrophils Percent Auto 71.4 % (43.0-75.0); Platelet Count 280 10^3/uL (150-450); Red Blood Count 4.05 10^6/uL (4.20-5.40); Red Cell Distribution Width 12.9 % (11.0-15.0); White Blood Count 9.1 10^3/uL (4.0-11.0)
[2024-11-12] MEDS: ALBUTEROL SULFATE 2.5 MG/3 ML VIAL NEB IH ×2 (12:12→14:27)
[2024-11-12 12:14] LABS: Anion Gap 13.3; BUN Creatinine Ratio 6.5; Calcium 8.2 mg/dL (8.5-10.1); Carbon Dioxide 27.9 mmol/L (21.0-32.0); Chloride 104 mmol/L (98-107); Estimated GFR (African America >60 (>=60 mL/min/1.73m^2); Estimated GFR (Non-African Ame 50 (>=60 mL/min/1.73m^2); Glucose 91 mg/dL (74-106); Potassium 3.2 mmol/L (3.5-5.1); Sodium 142 mmol/L (136-145)
--- NOTE | 2024-11-12 12:15 | RESP.RT ---
Pt wears 3 lpm at home
[2024-11-12 12:25] LABS: Influenza Virus A Antigen Negative; Influenza Virus B Antigen Negative; Internal Control Within Normal Limits; Respiratory Syncytial Virus Not Detected (NOT DETECTE); SARS-CoV-2 Ag NEGATIVE (NEGATIVE)
[2024-11-12] MEDS: POTASSIUM CHLORIDE 10 MEQ ER TABLET 40 MEQ PO (12:40)
[2024-11-12] MEDS: CEFTRIAXONE 1,000 MG in 0.9 % SODIUM CHLORIDE 50 ML 100 MG IV (13:32)
[2024-11-12] MEDS: AZITHROMYCIN 500 MG in 0.9 % SODIUM CHLORIDE 250 ML 250 MG IV (14:03)
--- NOTE | 2024-11-12 18:19 | P.HP_ITS ---
HPI H&P: HPI History of Present Illness Chief complaint: URI ACUTE COPD EXACERBATION Narrative: Delayed note for my encounter on 11/12/24 69 y o female with severe COPD/Asthma, chronic resp failure with hypoxia on 3 L O2 presented to ED with cough, nasal congestion, rhinorrhea, sore throat, nausea, dry heaving, multiple episodes daily of loose watery diarrhea, increased cough with sputum production, fevers, body aches, myalgias and arthralgias. Patient also reports worsening SOB and inability to catch her breath. She is on home oxygen always, has COPD and takes breathing treatments as needed. She reports her symptoms started a few days ago. She went to her PCP's office who recommended to her to go to ED for evaluation due to her SOB/increased work of breathing. In ED, patient was found to have COPD/asthma exacerbation and was given IV solumedrol and Duonebs. She was hypoxic on her baseline O2 (3 L) and was admitted for COPD exacerbation and hypoxia. Opioid HPI Opioid Management Most Recent Pain and Opioid Data: Last Pain Scale 8 11/13/24 11:43 11/13/24 Last Pain Intensity 0 08/10/24 09:52 08/10/24 Last Pain Assessment 11/13/24 11:43 Last MAR Pain Assessment 11/13/24 11:36 Last ORT Total Score 0 11/12/24 15:32 11/12/24 Last ORT Risk Category Low Risk 11/12/24 15:32 11/12/24 Review of Systems ROS Status of ROS 10 or more systems reviewed and unremark able except as noted in history and below [facility] Medical History (Updated 11/12/24 @ 15:31 by Darya Alexander) Melanoma ?C43.9 - Malignant melanoma of skin, unspecified (ICD-10) Mediastinal lymphadenopathy ?R59.0 - Localized enlarged lymph nodes (ICD-10) Tracheobronchomalacia ?J39.8 - Other specified diseases of upper respiratory tract (ICD-10) Restrictive lung disease ?J98.4 - Other disorders of lung (ICD-10) CAD (coronary artery disease) ?I25.10 - Atherosclerotic heart disease of [place] coronary artery without angina pectoris (ICD-10) Chronic heart failure with preserved ejection fraction (HFpEF) ?I50.32 - Chronic diastolic (congestive) heart failure (ICD-10) Hypertension ?I10 - Essential (primary) hypertension (ICD-10) Acute exacerbation of COPD with asthma ?J44.1 - Chronic obstructive pulmonary disease with (acute) exacerbation (ICD-10) ?J45.901 - Unspecified asthma with (acute) exacerbation (ICD-10) Lumbar radiculopathy ?M54.16 - Radiculopathy, lumbar region (ICD-10) Encounter for long-term opiate analgesic use ?Z79.891 - snf (current) use of opiate analgesic (ICD-10) Failed back syndrome ?M96.1 - Postlaminectomy syndrome, not elsewhere classified (ICD-10) Acute exacerbation of chronic low back pain ?M54.50 - Low back pain, unspecified (ICD-10) ?G89.29 - Other chronic pain (ICD-10) Thoracic spondylosis ?M47.814 - Spondylosis without myelopathy or radiculopathy, thoracic region (ICD-10) Hypoxia ?R09.02 - Hypoxemia (ICD-10) URI (upper respiratory infection) ?J06.9 - Acute upper respiratory infection, unspecified (ICD-10) Orthostasis ?I95.1 - Orthostatic hypotension (ICD-10) Community acquired pneumonia ?J18.9 - Pneumonia, unspecified organism (ICD-10) Severe malnutrition ?E43 - Unspecified severe protein-calorie malnutrition (ICD-10) Acute exacerbation of chronic obstructive pulmonary disease (COPD) ?J44.1 - Chronic obstructive pulmonary disease with (acute) exacerbation (ICD-10) Severe persistent asthma with exacerbation ?J45.51 - Severe persistent asthma with (acute) exacerbation (ICD-10) Morbid obesity ?E66.01 - Morbid (severe) obesity due to excess calories (ICD-10) Other pulmonary collapse ?J98.19 - Other pulmonary collapse (ICD-10) 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 - Critical illness myopathy (ICD-10) Chronic respiratory failure with hypoxia ?J96.11 - Chronic respiratory failure with hypoxia (ICD-10) Bronchitis ?J40 - Bronchitis, not specified as acute or chronic (ICD-10) Hypomagnesemia ?E83.42 - Hypomagnesemia (ICD-10) Acute hypokalemia ?E87.6 - Hypokalemia (ICD-10) Pneumonia ?J18.9 - Pneumonia, unspecified organism (ICD-10) Acute exacerbation of chronic obstructive pulmonary disease ?J44.1 - Chronic obstructive pulmonary disease with (acute) exacerbation (ICD-10) Myofascial pain ?M79.18 - Myalgia, other site (ICD-10) Greater trochanteric bursitis ?M70.60 - Trochanteric bursitis, unspecified hip (ICD-10) Osteoarthritis of right hip ?M16.11 - Unilateral primary osteoarthritis, right hip (ICD-10) Lumbar spondylosis ?M47.816 - Spondylosis without myelopathy or radiculopathy, lumbar region (ICD-10) Lumbar postlaminectomy syndrome ?M96.1 - Postlaminectomy syndrome, not elsewhere classified (ICD-10) Lumbar stenosis with neurogenic claudication ?M48.062 - Spinal stenosis, lumbar region with neurogenic claudication (ICD- 10) Depression ?F32.A - Depression, unspecified (ICD-10) Chronic low back pain ?M54.50 - Low back pain, unspecified (ICD-10) ?G89.29 - Other chronic pain (ICD-10) Hypoxia ?R09.02 - Hypoxemia (ICD-10) Heart murmur ?R01.1 - Cardiac murmur, unspecified (ICD-10) Chronic obstructive pulmonary disease ?J44.9 - Chronic obstructive pulmonary disease, unspecified (ICD-10) Asthma ?J45.909 - Unspecified asthma, uncomplicated (ICD-10) Surgical History (Updated 11/12/24 @ 15:31 by Darya Alexander) H/O cataract removal with insertion of prosthetic lens ?Z98.49 - Cataract extraction status, unspecified eye (ICD-10) ?Z96.1 - Presence of intraocular lens (ICD-10) Status post hip surgery ?Z98.890 - Other specified postprocedural states (ICD-10) H/O foot surgery ?Z98.890 - Other specified postprocedural states (ICD-10) H/O tubal ligation ?Z98.51 - Tubal ligation status (ICD-10) History of lumbar fusion ?Z98.1 - Arthrodesis status (ICD-10) Family History Mother Family history of CHF (congestive heart failure) Family history of hypertension Father Family history of hypertension Family history of myocardial infarction Social History Within the past year, how often did you have a drink containing alcohol: never Score interpretation: A score less than 3 is consistent with normal alcohol consumption. Smoking status: Never smoker Non-prescribed substance use: denies use Previous occupational history: retired Highest level of school completed/degree received: Associate degree: occupational, technical, vocational program Are you now , , , , never or living with a partner: In a typical week, how many times do you talk on the telephone with family, friends, or neighbors: 3 or more times per week How often do you get together with friends or relatives: 3 or more times per week How often do you attend adventism or cheondoism services: 4 or more times per year Do you belong to any clubs or organizations such as adventism groups unions, [employer] or athletic groups, or school groups: no Total score: 2 Score interpretation: A score of greater than or equal to 2 indicates the lowest level of social isolation. Little interest or pleasure in doing things: not at all Feeling down, depressed, or hopeless: not at all Feel stressed/tense/nervous/anxious/difficulty sleeping: not at all Do you think of yourself as: straight/heterosexual Gender Identity: female Meds Home Medications and Allergies Home Medications ?Medication ?Instructions ?Recorded ?Confirmed ?Type fluticasone fur. 200 mcg-umeclid 1 inh inhalation Q24H COPD 04/10/23 11/12/24 History 62.5 mcg-vilant 25 mcg inhalat.powder (Trelegy Ellipta) magnesium oxide 400 mg (241.3 mg 400 mg PO DAILY 04/10/23 11/12/24 History magnesium) tablet omeprazole 20 mg capsule,delayed 20 mg PO BID 04/10/23 11/12/24 History release montelukast 10 mg tablet 10 mg PO DAILY 09/14/23 11/12/24 History pramipexole 0.25 mg tablet 0.25 mg PO QPM PRN restless leg(s) 09/14/23 11/12/24 History (Mirapex) paroxetine HCl 30 mg tablet 30 mg PO QDAY 11/25/23 11/12/24 History pregabalin 75 mg capsule 75 mg PO BID 11/25/23 11/12/24 History solifenacin 10 mg tablet 10 mg PO QDAY 11/25/23 11/12/24 History trazodone 100 mg tablet 100 mg PO .qhs 11/25/23 11/12/24 History baclofen 10 mg tablet 10 mg PO Q8H 02/03/24 11/12/24 History albuterol sulfate 2.5 mg/3 mL 2.5 mg inhalation QID PRN 06/06/24 11/12/24 History (0.083 %) solution for nebulization shortness of breath or wheezing furosemide 20 mg tablet 20 mg PO DAILY 06/28/24 11/12/24 History sodium chloride 0.9 % for 2.5 ml inhalation Q8H PRN 06/28/24 11/12/24 History nebulization shortness of breath or wheezing latanoprost 0.005 % eye drops 1 drp ophthalmic (eye) .HS 08/09/24 11/12/24 History doxycycline hyclate 100 mg capsule 100 mg PO BID 10 days #20 caps 11/12/24 Rx prednisone 50 mg tablet 50 mg PO DAILY 5 days #5 tabs 11/12/24 Rx Allergies Allergy/AdvReac Type Severity Reaction Status Date / Time No Known Drug Allergies Allergy Verified 06/28/24 19:48 Exam Constitutional Vital Signs, click to edit/add: Last Vital Signs Temp 98.3 F 11/12/24 15:32 Pulse 90 11/12/24 17:43 Resp 20 11/12/24 15:32 BP 142/76 H 11/12/24 15:32 Pulse Ox 90 L 11/12/24 15:42 O2 Del Method Nasal Cannula 11/12/24 15:42 O2 Flow Rate 4 11/12/24 15:42 Documenting provider has reviewed patient's vital signs: yes Common normals: oriented x3 General appearance: cooperative, ill appearing and frail appearing HENMT Common normals: normocephalic and head/scalp atraumatic Head and scalp: normocephalic and atraumatic Eye Common normals: conjunctivae normal and no scleral icterus Conjunctiva: conjunctiva(e) normal Respiratory Common normals: normal respiratory effort and clear to auscultation bilaterally Effort & inspection: tachypneic, labored and actively coughing Other: Coarse/harsh breath sounds. Wheezing on exam. Cardio Common normals: regular rate, S1 normal heart sound and S2 normal heart sound Rate: regular rate Heart sounds: S1 normal and S2 normal GI Common normals: Normal to inspection, nondistended, normoactive bowel sounds present, soft to palpation, non-tender and no hepatosplenomegaly Palpation: soft and no hepatosplenomegaly Extremity Common normals: no clubbing, cyanosis or edema Neuro Common normals: oriented x3, moves all extremities and no focal motor deficits Psych Common normals: mental status grossly normal, denies hallucinations, denies homicidal ideation and denies suicidal ideation Results Labs Labs: Short CBC 11/12/24 Range/Units 11:57 WBC 9.1 (4.0-11.0) 10^3/uL Hgb 12.3 (12.0-16.0) g/dL Hct 37.9 (36.0-48.0) % Plt Count 280 (150-450) 10^3/uL BMP 11/12/24 11:57 Sodium 142 Potassium 3.2 L Chloride 104 Carbon Dioxide 27.9 BUN 7.0 Creatinine 1.08 H Glucose 91 Calcium 8.2 L Assessment and Plan Assessment and Plan (1) Acute and chronic respiratory failure with hypoxia: Assessment and Plan: On 3 with oxygen at baseline. Currently on 4 L of oxygen. Patient is dyspneic at rest and was unable to converse due to shortness of breath. Secondary to COPD/asthma exacerbation. Wean off oxygen as tolerated. (2) Acute exacerbation of chronic obstructive pulmonary disease (COPD): Assessment and Plan: Patient on IV Solu-Medrol, inhaled DuoNebs along with saline nebs. (3) Chronic heart failure with preserved ejection fraction (HFpEF): Assessment and Plan: Patient appears euvolemic on clinical exam. Monitor closely as risk of volume overload with steroids (4) Chronic respiratory failure with hypoxia: Assessment and Plan: on 3 L O2 via [place] at her baseline (5) Lumbar stenosis with neurogenic claudication: Assessment and Plan: Pain unchanged. On pregabalin. Continue with same. (6) Severe persistent asthma with exacerbation: Assessment and Plan: On IV Solu-Medrol, inhaled DuoNebs along with saline nebs (7) Depression: Assessment and Plan: Mood is stable. Continue medications. Qualifiers: Depression Type: major depressive disorder Major depression recurrence: recurrent Active/Remission status: in full remission Qualified Code(s): F33.42 - Major depressive disorder, recurrent, in full remission
[2024-11-12] MEDS: IPRATROPIUM/ALBUTEROL SULFATE 3 ML AMPUL.NEB IH ×2 (19:58→23:17)
[2024-11-12] MEDS: BACLOFEN 10 MG TABLET PO (22:02)
[2024-11-12] MEDS: PREGABALIN 75 MG CAPSULE PO (22:02)
[2024-11-12] MEDS: METHYLPREDNISOLONE SOD SUCC PF 40 MG/ML VIAL IVP (22:02)
[2024-11-12] MEDS: ENOXAPARIN SODIUM 40 MG/0.4 ML SYRINGE SUBQ (22:02)
[2024-11-12] MEDS: OMEPRAZOLE 20 MG CAPSULE.DR PO (22:02)
[2024-11-12] MEDS: TRAZODONE HCL 50 MG TABLET 100 MG PO (22:03)
[2024-11-12 22:05] LABS: Glucometer 147 mg/dL (74-106)
[2024-11-12] MEDS: SODIUM CHLORIDE 0.9% INHALATION 3 ML NEB IH (23:17)
[2024-11-12] MEDS: BUDESONIDE 0.5 MG/2 ML AMPULE NEB IH (23:17)
[2024-11-13] VITALS (20 sets, daily range): BP systolic 142–168; BP diastolic 72–82; PULSE 64–91; TEMP 36.7–36.8; O2SAT 89–92
[2024-11-13] MEDS: IPRATROPIUM/ALBUTEROL SULFATE 3 ML AMPUL.NEB IH ×6 (03:57→23:00)
[2024-11-13] MEDS: METHYLPREDNISOLONE SOD SUCC PF 40 MG/ML VIAL IVP ×3 (05:48→21:01)
[2024-11-13] MEDS: BACLOFEN 10 MG TABLET PO ×3 (05:48→21:01)
[2024-11-13 06:44] LABS: Basophils Percent Auto 0.2 % (0.2-2.0); Hematocrit 38.2 % (36.0-48.0); Hemoglobin 12.1 g/dL (12.0-16.0); Immature Granulocytes Abs Auto 0.21 10^3/uL (0.00-0.03); Immature Granulocytes Pct Auto 4.1 % (0.0-0.5); Lymphocytes Absolute Auto 0.5 10^3/uL (1.2-3.8); Lymphocytes Percent Auto 10.4 % (20.5-60.0); Mean Corpuscular HGB Conc 31.7 g/dL (29.9-35.2); Mean Corpuscular Hemoglobin 29.4 pg (26.7-34.0); Mean Corpuscular Volume 92.9 fL (81.0-99.0); Mean Platelet Volume 8.7 fL (9.5-13.5); Monocytes Absolute Auto 0.1 10^3/uL (0.3-0.8); Monocytes Percent Auto 2.5 % (1.7-12.0); Neutrophils Absolute Auto 4.3 10^3/uL (1.4-6.5); Neutrophils Percent Auto 82.8 % (43.0-75.0); Platelet Count 313 10^3/uL (150-450); Red Blood Count 4.11 10^6/uL (4.20-5.40); Red Cell Distribution Width 12.8 % (11.0-15.0); White Blood Count 5.2 10^3/uL (4.0-11.0)
[2024-11-13 07:08] LABS: Alanine Aminotransferase 11 U/L (14-59); Albumin Globulin Ratio 0.6; Albumin Level 2.5 g/dL (3.4-5.0); Alkaline Phosphatase 95 U/L (46-116); Anion Gap 14.5; Aspartate Amino Transferase 12 U/L (15-37); BUN Creatinine Ratio 9.2; Bilirubin Total 0.1 mg/dL (0.2-1.0); Calcium 8.4 mg/dL (8.5-10.1); Chloride 105 mmol/L (98-107); Estimated GFR (African America 55 (>=60 mL/min/1.73m^2); Estimated GFR (Non-African Ame 45 (>=60 mL/min/1.73m^2); Globulin 4.5 g/dL; Glucose 160 mg/dL (74-106); Potassium 3.5 mmol/L (3.5-5.1); Sodium 142 mmol/L (136-145)
[2024-11-13] MEDS: SODIUM CHLORIDE 0.9% INHALATION 3 ML NEB IH ×3 (07:45→23:00)
[2024-11-13] MEDS: SOLIFENACIN SUCCINATE 10 MG TABLET PO (09:10)
[2024-11-13] MEDS: MONTELUKAST SODIUM 10 MG TABLET PO (09:10)
[2024-11-13] MEDS: AZITHROMYCIN 250 MG TABLET 500 MG PO (09:10)
[2024-11-13] MEDS: PAROXETINE HCL 20 MG TABLET 30 MG PO (09:10)
[2024-11-13] MEDS: OMEPRAZOLE 20 MG CAPSULE.DR PO ×2 (09:10→16:12)
[2024-11-13] MEDS: MAGNESIUM OXIDE 400 MG TABLET PO (09:10)
[2024-11-13] MEDS: PREGABALIN 75 MG CAPSULE PO ×2 (09:10→21:01)
[2024-11-13] MEDS: FUROSEMIDE 20 MG TABLET PO (09:10)
[2024-11-13] MEDS: ENOXAPARIN SODIUM 40 MG/0.4 ML SYRINGE SUBQ (09:11)
[2024-11-13] MEDS: BUDESONIDE 0.5 MG/2 ML AMPULE NEB IH ×2 (10:59→23:00)
[2024-11-13 11:30] LABS: Glucometer 160 mg/dL (74-106)
[2024-11-13] MEDS: ACETAMINOPHEN 325 MG TABLET 650 MG PO ×2 (11:36→21:01)
[2024-11-13] MEDS: INSULIN ASPART 300 UNIT/3 ML PEN SUBQ ×3 (11:37→21:02)
--- NOTE | 2024-11-13 11:37 | CM.NOTE ---
Rounds made with Dr. Ohara. Consult for Pulmonology made..Diana verbalizes understanding. Dr. Ohara reviews plan of care with Diana.
--- NOTE | 2024-11-13 11:54 | P.IMPN_ITS ---
Progress Note: A&P Assessment and Plan (1) Acute and chronic respiratory failure with hypoxia: Assessment and Plan: No improvement. Still on 4 L O2. Pulm consulted. (2) Acute exacerbation of chronic obstructive pulmonary disease (COPD): Assessment and Plan: No improvement. Still SOB, hypoxic. Continue with inhaled bronchodilators, steroids and saline nebs. Pulm consulted. (3) Chronic heart failure with preserved ejection fraction (HFpEF): Assessment and Plan: C/w oral lasix. Monitor closely as risk of volume overload with Steroids. (4) Chronic respiratory failure with hypoxia: Assessment and Plan: Baseline O2 requirement is 3 L (5) Lumbar stenosis with neurogenic claudication: Assessment and Plan: Continue with Lyrica. (6) Depression: Assessment and Plan: Continue with Paxil/trazodone. Qualifiers: Depression Type: major depressive disorder Major depression recurrence: recurrent Active/Remission status: in full remission Qualified Code(s): F33.42 - Major depressive disorder, recurrent, in full remission Internal Medicine - PN: Subj Subjective Interval history: Seen and examined today. No improvement. Still SOB, hypoxic and does not feel any improvement in her overall clinical status. Exam Constitutional Vital Signs, click to edit/add: Last Vital Signs Temp 98.1 F 11/13/24 04:00 Pulse 79 11/13/24 09:57 Resp 18 11/13/24 07:47 BP 148/82 H 11/13/24 04:00 Pulse Ox 90 L 11/13/24 10:59 O2 Del Method Nasal Cannula 11/13/24 10:59 O2 Flow Rate 4 11/13/24 10:59 Documenting provider has reviewed patient's vital signs: yes Common normals: oriented x3 General appearance: cooperative, ill appearing and frail appearing Respiratory Common normals: normal respiratory effort and clear to auscultation bilaterally Effort & inspection: tachypneic, labored and actively coughing Other: Coarse/harsh breath sounds. Wheezing on exam. Cardio Common normals: regular rate, S1 normal heart sound and S2 normal heart sound Rate: regular rate Heart sounds: S1 normal and S2 normal GI Common normals: Normal to inspection, nondistended, normoactive bowel sounds present, soft to palpation, non-tender and no hepatosplenomegaly Palpation: soft and no hepatosplenomegaly Extremity Common normals: no clubbing, cyanosis or edema Neuro Common normals: oriented x3, moves all extremities and no focal motor deficits Psych Common normals: mental status grossly normal, denies hallucinations, denies homicidal ideation and denies suicidal ideation Internal Medicine - PN: Obj Da Labs Labs: Laboratory Results - last 24 hr 11/12/24 11/12/24 11/12/24 11:56 11:57 22:01 WBC 9.1 RBC 4.05 L Hgb 12.3 Hct 37.9 MCV 93.6 MCH 30.4 MCHC 32.5 RDW 12.9 Plt Count 280 MPV 8.7 L Neut % (Auto) 71.4 Lymph % (Auto) 15.2 L [place] % (Auto) 8.5 Eos % (Auto) 2.6 Baso % (Auto) 0.6 Neut # (Auto) 6.5 Lymph # (Auto) 1.4 [place] # (Auto) 0.8 Eos # (Auto) 0.2 Baso # (Auto) 0.1 Abs Immat Gran (auto) 0.15 H Imm/Tot Granulo (auto) 1.7 H Sodium 142 Potassium 3.2 L Chloride 104 Carbon Dioxide 27.9 Anion Gap 13.3 BUN 7.0 Creatinine 1.08 H Est GFR ( Amer) >60 Est GFR (Non-Af Amer) 50 L BUN/Creatinine Ratio 6.5 Glucose 91 Calcium 8.2 L Total Bilirubin AST ALT Alkaline Phosphatase Total Protein Albumin Globulin Albumin/Globulin Ratio Influenza Type A Ag Negative Influenza Type B Ag Negative RSV Antigen Not detected SARS-CoV-2 Ag (CV2AG) Negative POC Glucose 147 H 11/13/24 11/13/24 06:16 11:29 WBC 5.2 RBC 4.11 L Hgb 12.1 Hct 38.2 MCV 92.9 MCH 29.4 MCHC 31.7 RDW 12.8 Plt Count 313 MPV 8.7 L Neut % (Auto) 82.8 H Lymph % (Auto) 10.4 L [place] % (Auto) 2.5 Eos % (Auto) 0.0 L Baso % (Auto) 0.2 Neut # (Auto) 4.3 Lymph # (Auto) 0.5 L [place] # (Auto) 0.1 L Eos # (Auto) 0.0 Baso # (Auto) 0.0 Abs Immat Gran (auto) 0.21 H Imm/Tot Granulo (auto) 4.1 H Sodium 142 Potassium 3.5 Chloride 105 Carbon Dioxide 26.0 Anion Gap 14.5 BUN 11.0 Creatinine 1.19 H Est GFR ( Amer) 55 L Est GFR (Non-Af Amer) 45 L BUN/Creatinine Ratio 9.2 Glucose 160 H Calcium 8.4 L Total Bilirubin 0.1 L AST 12 L ALT 11 L Alkaline Phosphatase 95 Total Protein 7.0 Albumin 2.5 L Globulin 4.5 Albumin/Globulin Ratio 0.6 Influenza Type A Ag Influenza Type B Ag RSV Antigen SARS-CoV-2 Ag (CV2AG) POC Glucose 160 H
--- NOTE | 2024-11-13 13:10 | CT_ITS ---
The [address] [address] Patient Name: JHONATAN MONTOYA MRN: [id number] date: 1955 Sex: F Assigned Patient Location: [place] Current Patient Location: [place] Accession/Order Number: [id number] Exam Date: 11/13/2024 13:54 Report Date: 11/13/2024 14:19 At the request of: BO MCCLAIN Procedure: CT chest wo con EXAMINATION: CT chest wo con HISTORY: Abnormal chest x-ray, respiratory failure COMPARISON: 11/12/2024, 08/08/2024 TECHNIQUE: Multi-planar CT images were created with IV contrast. Axial, Coronal, and Sagittal images. Dose reduction techniques were achieved by using automated exposure control and/or adjustment of mA and/or kV according to patient size and/or use of iterative reconstruction technique. FINDINGS: LUNGS: Patchy/ground glass infiltrates identified in the posterior aspect of the right upper lobe. Partial consolidation of the right lower lobe with presence of air bronchograms. Patchy linear opacities left lung base, atelectasis is favored PLEURA: No mass, effusion, or pneumothorax. VASCULATURE: No abnormality. RENAN: No mass or adenopathy. MEDIASTINUM: No mass or adenopathy. CARDIAC: No enlargement or pericardial effusion Coronary arteries: Absent AORTA: No aortic aneurysm CHEST WALL: No mass or axillary adenopathy. BONES: No bone lesion or fracture. LIMITED ABDOMEN: No suspicious findings. Limited images of the upper abdomen. OTHER: Negative. CT/CT chest wo con IMPRESSION: Right upper and right lower lobe multifocal pneumonia Electronically authenticated by: BRITTANY VANESSA Date: 11/13/2024 14:19
--- NOTE | 2024-11-13 15:34 | SWNOTE1 ---
Important Message from [employer] reviewed and discussed with patient. Pt. verbalized understanding and signed the form. Original given to patient and copy placed in patient?s chart.
--- NOTE | 2024-11-13 15:35 | SWNOTE1 ---
SW met with pt to discuss dc needs. Pt lives at home and her son lives with her. Pt wears 3 liters of home oxygen from [facility]. Pt has a rollator, wheelchair, and cpap for at home. Pt voiced she has been doing well at home and no services coming in at this time. Pt does not have any concerns about discharge at this time. SW to follow as needed.
[2024-11-13 16:06] LABS: Glucometer 189 mg/dL (74-106)
--- NOTE | 2024-11-13 17:36 | PM.PLCN ---
History of Present Illness History of Present Illness Consult date: 11/13/24 Requesting physician: Shaikh Lev Reason for consult: hypoxemia Chief complaint: URI ACUTE COPD EXACERBATION Narrative: 69yo female. Very well-known to me, I follow her outpatient. 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 This is caused some tracheobronchomalacia to the point it is compromising her airway at times. She is currently on NIV for respiratory failure associated with neuromuscular weakness. She was evaluated by interventional pulmonology who suggested possible tracheal transplant, but the patient elected not to proceed with this option. She is now in jeopardy of losing her NIV and vest due to financial concerns, but as of this time, she still has them in her possession. Over the last several days, she felt more congested. She denies any sick contacts. She is still having some difficulty expectorating. She came into the ER and chest x-ray showed infiltrates, but changed in appearance. I was consulted. Her breath sounds are different than her baseline, decreased on the right. I ordered a chest CT which was done and returned positive for right sided infiltrates consistent with pneumonia. Review of Systems ROS Narrative Daily productive cough, compliant with pulmonary toilet. [facility] Medical History (Updated 11/13/24 @ 17:45 by Corbin Lopes DO) Melanoma ?C43.9 - Malignant melanoma of skin, unspecified (ICD-10) Mediastinal lymphadenopathy ?R59.0 - Localized enlarged lymph nodes (ICD-10) Tracheobronchomalacia ?J39.8 - Other specified diseases of upper respiratory tract (ICD-10) Restrictive lung disease ?J98.4 - Other disorders of lung (ICD-10) CAD (coronary artery disease) ?I25.10 - Atherosclerotic heart disease of [place] coronary artery without angina pectoris (ICD-10) Chronic heart failure with preserved ejection fraction (HFpEF) ?I50.32 - Chronic diastolic (congestive) heart failure (ICD-10) Hypertension ?I10 - Essential (primary) hypertension (ICD-10) Acute exacerbation of COPD with asthma ?J44.1 - Chronic obstructive pulmonary disease with (acute) exacerbation (ICD-10) ?J45.901 - Unspecified asthma with (acute) exacerbation (ICD-10) Lumbar radiculopathy ?M54.16 - Radiculopathy, lumbar region (ICD-10) Encounter for long-term opiate analgesic use ?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 (ICD-10) Failed back syndrome ?M96.1 - Postlaminectomy syndrome, not elsewhere classified (ICD-10) Acute exacerbation of chronic low back pain ?M54.50 - Low back pain, unspecified (ICD-10) ?G89.29 - Other chronic pain (ICD-10) Thoracic spondylosis ?M47.814 - Spondylosis without myelopathy or radiculopathy, thoracic region (ICD-10) Hypoxia ?R09.02 - Hypoxemia (ICD-10) URI (upper respiratory infection) ?J06.9 - Acute upper respiratory infection, unspecified (ICD-10) Orthostasis ?I95.1 - Orthostatic hypotension (ICD-10) Community acquired pneumonia ?J18.9 - Pneumonia, unspecified organism (ICD-10) Severe malnutrition ?E43 - Unspecified severe protein-calorie malnutrition (ICD-10) Acute exacerbation of chronic obstructive pulmonary disease (COPD) ?J44.1 - Chronic obstructive pulmonary disease with (acute) exacerbation (ICD-10) Severe persistent asthma with exacerbation ?J45.51 - Severe persistent asthma with (acute) exacerbation (ICD-10) Morbid obesity ?E66.01 - Morbid (severe) obesity due to excess calories (ICD-10) Other pulmonary collapse ?J98.19 - Other pulmonary collapse (ICD-10) 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 - Critical illness myopathy (ICD-10) Chronic respiratory failure with hypoxia ?J96.11 - Chronic respiratory failure with hypoxia (ICD-10) Bronchitis ?J40 - Bronchitis, not specified as acute or chronic (ICD-10) Hypomagnesemia ?E83.42 - Hypomagnesemia (ICD-10) Acute hypokalemia ?E87.6 - Hypokalemia (ICD-10) Acute exacerbation of chronic obstructive pulmonary disease ?J44.1 - Chronic obstructive pulmonary disease with (acute) exacerbation (ICD-10) Myofascial pain ?M79.18 - Myalgia, other site (ICD-10) Greater trochanteric bursitis ?M70.60 - Trochanteric bursitis, unspecified hip (ICD-10) Osteoarthritis of right hip ?M16.11 - Unilateral primary osteoarthritis, right hip (ICD-10) Lumbar spondylosis ?M47.816 - Spondylosis without myelopathy or radiculopathy, lumbar region (ICD-10) Lumbar postlaminectomy syndrome ?M96.1 - Postlaminectomy syndrome, not elsewhere classified (ICD-10) Lumbar stenosis with neurogenic claudication ?M48.062 - Spinal stenosis, lumbar region with neurogenic claudication (ICD-10) Depression ?F32.A - Depression, unspecified (ICD-10) Chronic low back pain ?M54.50 - Low back pain, unspecified (ICD-10) ?G89.29 - Other chronic pain (ICD-10) Hypoxia ?R09.02 - Hypoxemia (ICD-10) Heart murmur ?R01.1 - Cardiac murmur, unspecified (ICD-10) Chronic obstructive pulmonary disease ?J44.9 - Chronic obstructive pulmonary disease, unspecified (ICD-10) Asthma ?J45.909 - Unspecified asthma, uncomplicated (ICD-10) Surgical History (Updated 11/12/24 @ 15:31 by Darya Alexander) H/O cataract removal with insertion of prosthetic lens ?Z98.49 - Cataract extraction status, unspecified eye (ICD-10) ?Z96.1 - Presence of intraocular lens (ICD-10) Status post hip surgery ?Z98.890 - Other specified postprocedural states (ICD-10) H/O foot surgery ?Z98.890 - Other specified postprocedural states (ICD-10) H/O tubal ligation ?Z98.51 - Tubal ligation status (ICD-10) History of lumbar fusion ?Z98.1 - Arthrodesis status (ICD-10) Family History Mother Family history of CHF (congestive heart failure) Family history of hypertension Father Family history of hypertension Family history of myocardial infarction Social History Within the past year, how often did you have a drink containing alcohol: never Score interpretation: A score less than 3 is consistent with normal alcohol consumption. Smoking status: Never smoker Non-prescribed substance use: denies use Previous occupational history: retired Highest level of school completed/degree received: Associate degree: occupational, technical, vocational program Are you now , , , , never or living with a partner: In a typical week, how many times do you talk on the telephone with family, friends, or neighbors: 3 or more times per week How often do you get together with friends or relatives: 3 or more times per week How often do you attend anabaptist or orthodox services: 4 or more times per year Do you belong to any clubs or organizations such as anabaptist groups unions, [employer] or athletic groups, or school groups: no Total score: 2 Score interpretation: A score of greater than or equal to 2 indicates the lowest level of social isolation. Little interest or pleasure in doing things: not at all Feeling down, depressed, or hopeless: not at all Feel stressed/tense/nervous/anxious/difficulty sleeping: not at all Do you think of yourself as: straight/heterosexual Gender Identity: female Meds Home Medications and Allergies Home Medications ?Medication ?Instructions ?Recorded ?Confirmed ?Type fluticasone fur. 200 mcg-umeclid 1 inh inhalation Q24H COPD 04/10/23 11/12/24 History 62.5 mcg-vilant 25 mcg inhalat.powder (Trelegy Ellipta) magnesium oxide 400 mg (241.3 mg 400 mg PO DAILY 04/10/23 11/12/24 History magnesium) tablet omeprazole 20 mg capsule,delayed 20 mg PO BID 04/10/23 11/12/24 History release montelukast 10 mg tablet 10 mg PO DAILY 09/14/23 11/12/24 History pramipexole 0.25 mg tablet 0.25 mg PO QPM PRN restless leg(s) 09/14/23 11/12/24 History (Mirapex) paroxetine HCl 30 mg tablet 30 mg PO QDAY 11/25/23 11/12/24 History pregabalin 75 mg capsule 75 mg PO BID 11/25/23 11/12/24 History solifenacin 10 mg tablet 10 mg PO QDAY 11/25/23 11/12/24 History trazodone 100 mg tablet 100 mg PO .qhs 11/25/23 11/12/24 History baclofen 10 mg tablet 10 mg PO Q8H 02/03/24 11/12/24 History albuterol sulfate 2.5 mg/3 mL 2.5 mg inhalation QID PRN 06/06/24 11/12/24 History (0.083 %) solution for nebulization shortness of breath or wheezing furosemide 20 mg tablet 20 mg PO DAILY 06/28/24 11/12/24 History sodium chloride 0.9 % for 2.5 ml inhalation Q8H PRN 06/28/24 11/12/24 History nebulization shortness of breath or wheezing latanoprost 0.005 % eye drops 1 drp ophthalmic (eye) .HS 08/09/24 11/12/24 History doxycycline hyclate 100 mg capsule 100 mg PO BID 10 days #20 caps 11/12/24 Rx prednisone 50 mg tablet 50 mg PO DAILY 5 days #5 tabs 11/12/24 Rx Allergies Allergy/AdvReac Type Severity Reaction Status Date / Time No Known Drug Allergies Allergy Verified 06/28/24 19:48 Exam Constitutional Vital Signs, click to edit/add: Last Vital Signs Temp 98.3 F 11/13/24 13:19 Pulse 77 11/13/24 16:00 Resp 20 11/13/24 13:19 BP 142/78 H 11/13/24 13:19 Pulse Ox 92 L 11/13/24 15:54 O2 Del Method Nasal Cannula 11/13/24 15:54 O2 Flow Rate 4 11/13/24 15:54 Documenting provider has reviewed patient's vital signs: yes Other: Chronically ill appearing, but not appear acutely in distress HENMT Other: Wearing nasal cannula. No oral candidiasis. Respiratory Other: Diminished breath sounds. Patient does not have her classic upper airway rhonchi that I typically hear. She has more crackles in the right side than the left which is new. No expiratory wheezes today. Cardio Rate: regular rate Rhythm: regular rhythm GI Inspection: central obesity Neuro Motor exam: no tremor noted and no fasciculations Psych Attitude: calm and engaged Speech: normal speech Results Laboratory Findings Abnormal lab findings: Abnormal Labs 11/12/24 11/12/24 11/13/24 11:57 22:01 06:16 RBC 4.05 L 4.11 L MPV 8.7 L 8.7 L Neut % (Auto) 82.8 H Lymph % (Auto) 15.2 L 10.4 L Eos % (Auto) 0.0 L Lymph # (Auto) 0.5 L [place] # (Auto) 0.1 L Abs Immat Gran (auto) 0.15 H 0.21 H Imm/Tot Granulo (auto) 1.7 H 4.1 H Potassium 3.2 L Creatinine 1.08 H 1.19 H Est GFR ( Amer) 55 L Est GFR (Non-Af Amer) 50 L 45 L Glucose 160 H Calcium 8.2 L 8.4 L Total Bilirubin 0.1 L AST 12 L ALT 11 L Albumin 2.5 L POC Glucose 147 H 11/13/24 11/13/24 11:29 16:05 RBC MPV Neut % (Auto) Lymph % (Auto) Eos % (Auto) Lymph # (Auto) [place] # (Auto) Abs Immat Gran (auto) Imm/Tot Granulo (auto) Potassium Creatinine Est GFR ( Amer) Est GFR (Non-Af Amer) Glucose Calcium Total Bilirubin AST ALT Albumin POC Glucose 160 H 189 H Assessment and Plan Assessment and Plan (1) Pneumonia: Assessment and Plan: 1. Pneumonia, right sided. No identified agent at this current time. Patient is right at 90 days when she was discharged from her last admission (08/12/2024). I would continue to treat this as community-acquired pneumonia as we are at the very end of the operatory 90-day limit for healthcare acquired/nosocomial pneumonia. She was originally given Zithromycin and Rocephin in the ER. She was transitioned over to oral Zithromax earlier today, but given her history, I recommend restarting Rocephin which can be transition to cefdinir outpatient. 2. Acute exacerbation of COPD. Secondary to pneumonia. Continue with bronchodilators, steroids. 3. Critical illness myopathy. Associated with past COVID infection causing neuromuscular weakness. She is currently on NIV and has an aggressive pulmonary toilet with PEP, saline, and vest treatment outpatient. Patient needs to continue with the pulmonary toilet. She is very compliant with her NIV. She should be allowed to use this at her home settings at bedtime and as needed throughout the day. 4. Acute on chronic hypoxic respiratory failure. Exacerbated by the above. Continue with O2. 5. Morbid obesity with a BMI of 40.6. This is contributing to a restrictive pulmonary physiology. Qualifiers: Laterality: bilateral Lung location: lower lobe of lung Pneumonia type: due to unspecified organism Qualified Code(s): J18.9 - Pneumonia, unspecified organism
[2024-11-13 20:00] LABS: Glucometer 178 mg/dL (74-106)
[2024-11-13] MEDS: TRAZODONE HCL 50 MG TABLET 100 MG PO (21:01)
[2024-11-13] MEDS: CEFTRIAXONE 1,000 MG in 0.9 % SODIUM CHLORIDE 50 ML 100 MG IV (21:02)
[2024-11-14] VITALS (21 sets, daily range): BP systolic 131–164; BP diastolic 77–91; PULSE 66–96; TEMP 36.4–36.8; O2SAT 90–92
[2024-11-14] MEDS: IPRATROPIUM/ALBUTEROL SULFATE 3 ML AMPUL.NEB IH ×6 (03:59→23:26)
[2024-11-14] MEDS: BACLOFEN 10 MG TABLET PO ×3 (05:06→21:36)
[2024-11-14] MEDS: METHYLPREDNISOLONE SOD SUCC PF 40 MG/ML VIAL IVP ×3 (05:06→20:51)
[2024-11-14 06:24] LABS: Basophils Percent Auto 0.1 % (0.2-2.0); Hematocrit 35.7 % (36.0-48.0); Hemoglobin 11.3 g/dL (12.0-16.0); Immature Granulocytes Abs Auto 0.18 10^3/uL (0.00-0.03); Immature Granulocytes Pct Auto 2.5 % (0.0-0.5); Lymphocytes Absolute Auto 0.7 10^3/uL (1.2-3.8); Lymphocytes Percent Auto 9.2 % (20.5-60.0); Mean Corpuscular HGB Conc 31.7 g/dL (29.9-35.2); Mean Corpuscular Hemoglobin 29.7 pg (26.7-34.0); Mean Corpuscular Volume 93.9 fL (81.0-99.0); Mean Platelet Volume 8.8 fL (9.5-13.5); Monocytes Absolute Auto 0.5 10^3/uL (0.3-0.8); Monocytes Percent Auto 6.9 % (1.7-12.0); Neutrophils Absolute Auto 5.8 10^3/uL (1.4-6.5); Neutrophils Percent Auto 81.3 % (43.0-75.0); Platelet Count 306 10^3/uL (150-450); Red Cell Distribution Width 12.9 % (11.0-15.0); White Blood Count 7.1 10^3/uL (4.0-11.0)
[2024-11-14 06:38] LABS: Alanine Aminotransferase 9 U/L (14-59); Albumin Globulin Ratio 0.6; Albumin Level 2.5 g/dL (3.4-5.0); Alkaline Phosphatase 88 U/L (46-116); Anion Gap 11.6; Aspartate Amino Transferase 13 U/L (15-37); BUN Creatinine Ratio 18.8; Bilirubin Total 0.1 mg/dL (0.2-1.0); Calcium 8.6 mg/dL (8.5-10.1); Carbon Dioxide 30.3 mmol/L (21.0-32.0); Chloride 106 mmol/L (98-107); Estimated GFR (African America >60 (>=60 mL/min/1.73m^2); Estimated GFR (Non-African Ame 55 (>=60 mL/min/1.73m^2); Globulin 4.1 g/dL; Glucose 164 mg/dL (74-106); Potassium 3.9 mmol/L (3.5-5.1); Sodium 144 mmol/L (136-145); Total Protein 6.6 g/dL (6.4-8.2)
[2024-11-14] MEDS: SODIUM CHLORIDE 0.9% INHALATION 3 ML NEB IH ×3 (07:26→23:26)
--- NOTE | 2024-11-14 08:29 | PM.PLPN ---
Progress Note: A&P Assessment and Plan (1) Pneumonia: Assessment and Plan: 1. Pneumonia, right sided. Continue with Zithromax and Rocephin. Can change Rocephin to Omnicef at discharge. Given this patient's history, and would recommend a 10-14-day course of overall antibiotic treatment. 2. Acute exacerbation of COPD. Secondary to pneumonia. Continue with bronchodilators, steroids. Pulmonary toilet. 3. Critical illness myopathy. Pulmonary toilet, vest, NIV 4. Acute on chronic hypoxic respiratory failure. Patient remains on 4L/min, baseline is 3L/min. 5. Morbid obesity with a BMI of 40.6. Weight loss recommended. I am concerned somewhat about her sedentary lifestyle. Qualifiers: Laterality: bilateral Lung location: lower lobe of lung Pneumonia type: due to unspecified organism Qualified Code(s): J18.9 - Pneumonia, unspecified organism Plan Recommend care management discussed with the patient avenues for additional coverage to pay for her NIV and vest. These devices are vital for her health and I am afraid if they are taken away, she will have even more morbidity and an increased risk of mortality that she has at this moment with them. The patient is voiced she is very receptive to speak with them. Patient may follow-up with me outpatient after discharge. Subjective Subjective Interval history: Discussed with patient that her CAT scan yesterday did show right sided infiltrates consistent with pneumonia; this would explain the change in her breath sounds and overall symptoms. She states she feels a little bit better. Still having some difficulty expectorating. She continues to feel warm, but her thermostat seems to be stuck at 75, even though I turned it down to 71 yesterday. We discussed her concerns regarding affording her NIV and vest. Exam Constitutional Vital Signs, click to edit/add: Last Vital Signs Temp 97.6 F 11/14/24 04:40 Pulse 80 11/14/24 08:00 Resp 22 H 11/14/24 04:40 BP 164/91 H 11/14/24 04:40 Pulse Ox 90 L 11/14/24 07:27 O2 Del Method Nasal Cannula 11/14/24 07:27 O2 Flow Rate 4 11/14/24 07:27 Documenting provider has reviewed patient's vital signs: yes General appearance: ill appearing chronically HENMT Other: Wearing nasal cannula. No oral candidiasis. Respiratory Other: Continues to have diminished breath sounds. Right-sided crackles present, but more air movement compared to yesterday. Scattered rhonchi on the left. Cardio Rate: regular rate Rhythm: regular rhythm GI Inspection: central obesity Neuro Motor exam: no tremor noted and no fasciculations Psych Attitude: calm and engaged Speech: normal speech
[2024-11-14] MEDS: ENOXAPARIN SODIUM 40 MG/0.4 ML SYRINGE SUBQ (09:18)
[2024-11-14] MEDS: PREGABALIN 75 MG CAPSULE PO ×2 (09:19→20:51)
[2024-11-14] MEDS: PAROXETINE HCL 20 MG TABLET 30 MG PO (09:19)
[2024-11-14] MEDS: OMEPRAZOLE 20 MG CAPSULE.DR PO ×2 (09:19→16:07)
[2024-11-14] MEDS: AZITHROMYCIN 250 MG TABLET 500 MG PO (09:19)
[2024-11-14] MEDS: SOLIFENACIN SUCCINATE 10 MG TABLET PO (09:19)
[2024-11-14] MEDS: MAGNESIUM OXIDE 400 MG TABLET PO (09:19)
[2024-11-14] MEDS: FUROSEMIDE 20 MG TABLET PO (09:19)
[2024-11-14] MEDS: MONTELUKAST SODIUM 10 MG TABLET PO (09:19)
[2024-11-14] MEDS: BUDESONIDE 0.5 MG/2 ML AMPULE NEB IH ×2 (11:05→23:26)
--- NOTE | 2024-11-14 11:15 | P.IMPN_ITS ---
Progress Note: A&P Assessment and Plan (1) Pneumonia: Assessment and Plan: Right sided PNA noted on CT chest. Started on Rocephin by Pulm. Qualifiers: Laterality: bilateral Lung location: lower lobe of lung Pneumonia type: due to unspecified organism Qualified Code(s): J18.9 - Pneumonia, unspecified organism (2) Acute and chronic respiratory failure with hypoxia: Assessment and Plan: Feels slightly better subjectively. Still on 4 L O2. (3) Acute exacerbation of chronic obstructive pulmonary disease (COPD): Assessment and Plan: Feels slightly better subjectively. Still on 4 L O2. Continue with inhaled bronchodilators, steroids and saline nebs. (4) Chronic heart failure with preserved ejection fraction (HFpEF): Assessment and Plan: C/w oral lasix. Monitor closely as risk of volume overload with Steroids. (5) Chronic respiratory failure with hypoxia: Assessment and Plan: Baseline O2 requirement is 3 L (6) Lumbar stenosis with neurogenic claudication: Assessment and Plan: Continue with Lyrica. (7) Depression: Assessment and Plan: Continue with Paxil/trazodone. Qualifiers: Depression Type: major depressive disorder Major depression recurrence: recurrent Active/Remission status: in full remission Qualified Code(s): F33.42 - Major depressive disorder, recurrent, in full remission Internal Medicine - PN: Subj Subjective Interval history: Seen and examined today. Feels slightly better. Still on4 L and still considerably SOB at rest. Exam Constitutional Vital Signs, click to edit/add: Last Vital Signs Temp 97.6 F 11/14/24 04:40 Pulse 72 11/14/24 10:00 Resp 22 H 11/14/24 04:40 BP 164/91 H 11/14/24 04:40 Pulse Ox 90 L 11/14/24 07:27 O2 Del Method Nasal Cannula 11/14/24 07:27 O2 Flow Rate 4 11/14/24 07:27 Documenting provider has reviewed patient's vital signs: yes Common normals: oriented x3 General appearance: cooperative, ill appearing and frail appearing Respiratory Common normals: normal respiratory effort Other: Coarse/harsh breath sounds. Wheezing on exam. Cardio Common normals: regular rate, S1 normal heart sound and S2 normal heart sound Rate: regular rate Heart sounds: S1 normal and S2 normal Extremity Common normals: no clubbing, cyanosis or edema Neuro Common normals: oriented x3, moves all extremities and no focal motor deficits Psych Common normals: mental status grossly normal, denies hallucinations, denies homicidal ideation and denies suicidal ideation Internal Medicine - PN: Obj Da Labs Labs: Laboratory Results - last 24 hr 11/13/24 11/13/24 11/13/24 11:29 16:05 19:58 WBC RBC Hgb Hct MCV MCH MCHC RDW Plt Count MPV Neut % (Auto) Lymph % (Auto) [place] % (Auto) Eos % (Auto) Baso % (Auto) Neut # (Auto) Lymph # (Auto) [place] # (Auto) Eos # (Auto) Baso # (Auto) Abs Immat Gran (auto) Imm/Tot Granulo (auto) Sodium Potassium Chloride Carbon Dioxide Anion Gap BUN Creatinine Est GFR ( Amer) Est GFR (Non-Af Amer) BUN/Creatinine Ratio Glucose Calcium Total Bilirubin AST ALT Alkaline Phosphatase Total Protein Albumin Globulin Albumin/Globulin Ratio POC Glucose 160 H 189 H 178 H 11/14/24 05:56 WBC 7.1 RBC 3.80 L Hgb 11.3 L Hct 35.7 L MCV 93.9 MCH 29.7 MCHC 31.7 RDW 12.9 Plt Count 306 MPV 8.8 L Neut % (Auto) 81.3 H Lymph % (Auto) 9.2 L [place] % (Auto) 6.9 Eos % (Auto) 0.0 L Baso % (Auto) 0.1 L Neut # (Auto) 5.8 Lymph # (Auto) 0.7 L [place] # (Auto) 0.5 Eos # (Auto) 0.0 Baso # (Auto) 0.0 Abs Immat Gran (auto) 0.18 H Imm/Tot Granulo (auto) 2.5 H Sodium 144 Potassium 3.9 Chloride 106 Carbon Dioxide 30.3 Anion Gap 11.6 BUN 19.0 H Creatinine 1.01 Est GFR ( Amer) >60 Est GFR (Non-Af Amer) 55 L BUN/Creatinine Ratio 18.8 Glucose 164 H Calcium 8.6 Total Bilirubin 0.1 L AST 13 L ALT 9 L Alkaline Phosphatase 88 Total Protein 6.6 Albumin 2.5 L Globulin 4.1 Albumin/Globulin Ratio 0.6 POC Glucose
--- NOTE | 2024-11-14 11:19 | CM.NOTE ---
Rounds made with Dr. Ohara. Dr. Ohara reviews CT chest results with Daina. No discharge today.
[2024-11-14] MEDS: ACETAMINOPHEN 325 MG TABLET 650 MG PO ×2 (11:26→17:58)
[2024-11-14 11:31] LABS: Glucometer 202 mg/dL (74-106)
[2024-11-14] MEDS: INSULIN ASPART 300 UNIT/3 ML PEN SUBQ ×3 (11:33→21:36)
--- NOTE | 2024-11-14 14:29 | SWNOTE1 ---
SW stopped in and spoke to patient in regards to her NIV. Pt voiced that she did switch insurances this year. Pt also stated she has $500 in her checking account and the NIV cost $390. Pt got the NIV from [facility]. SW to call and see if there is a way insurance can cover or pay for more.
--- NOTE | 2024-11-14 14:39 | SWNOTE1 ---
JAZMIN called and spoke with Natanael at [facility]. Natanael pulled up pt's information. Natanael did inform SW that the NIV, vest and concentrators are all rented per month. JAZMIN did inform her that pt did get a new insurance. Natanael voiced they [employer] as her insurance. JAZMIN informed her that is is now [employer]. Natanael voiced that this could be the issue. She requested SW send over new insurance information. JAZMIN faxed over face sheet with insurance name and policy number along with a number for [employer]. JAZMIN updated patient.
[2024-11-14 16:10] LABS: Glucometer 167 mg/dL (74-106)
[2024-11-14] MEDS: CEFTRIAXONE 1,000 MG in 0.9 % SODIUM CHLORIDE 50 ML 100 MG IV (20:51)
[2024-11-14 21:15] LABS: Glucometer 144 mg/dL (74-106)
[2024-11-14] MEDS: TRAZODONE HCL 50 MG TABLET 100 MG PO (21:36)
[2024-11-15] VITALS (21 sets, daily range): BP systolic 121–149; BP diastolic 68–78; PULSE 68–100; TEMP 36.6–36.8; O2SAT 90–94
[2024-11-15] MEDS: IPRATROPIUM/ALBUTEROL SULFATE 3 ML AMPUL.NEB IH ×6 (04:03→23:19)
[2024-11-15] MEDS: BACLOFEN 10 MG TABLET PO ×3 (05:03→22:42)
[2024-11-15] MEDS: METHYLPREDNISOLONE SOD SUCC PF 40 MG/ML VIAL IVP ×3 (05:03→22:43)
[2024-11-15 05:49] LABS: Basophils Percent Auto 0.3 % (0.2-2.0); Hematocrit 36.6 % (36.0-48.0); Hemoglobin 11.5 g/dL (12.0-16.0); Immature Granulocytes Abs Auto 0.32 10^3/uL (0.00-0.03); Immature Granulocytes Pct Auto 4.7 % (0.0-0.5); Lymphocytes Absolute Auto 0.7 10^3/uL (1.2-3.8); Lymphocytes Percent Auto 10.5 % (20.5-60.0); Mean Corpuscular HGB Conc 31.4 g/dL (29.9-35.2); Mean Corpuscular Hemoglobin 29.4 pg (26.7-34.0); Mean Corpuscular Volume 93.6 fL (81.0-99.0); Mean Platelet Volume 8.9 fL (9.5-13.5); Monocytes Absolute Auto 0.4 10^3/uL (0.3-0.8); Monocytes Percent Auto 6.5 % (1.7-12.0); Neutrophils Absolute Auto 5.3 10^3/uL (1.4-6.5); Platelet Count 318 10^3/uL (150-450); Red Blood Count 3.91 10^6/uL (4.20-5.40); Red Cell Distribution Width 13.1 % (11.0-15.0); White Blood Count 6.8 10^3/uL (4.0-11.0)
[2024-11-15 06:00] LABS: Alanine Aminotransferase 12 U/L (14-59); Albumin Globulin Ratio 0.7; Albumin Level 2.6 g/dL (3.4-5.0); Alkaline Phosphatase 89 U/L (46-116); Anion Gap 9.8; Aspartate Amino Transferase 12 U/L (15-37); BUN Creatinine Ratio 19.5; Bilirubin Total 0.1 mg/dL (0.2-1.0); Calcium 8.6 mg/dL (8.5-10.1); Carbon Dioxide 32.3 mmol/L (21.0-32.0); Chloride 105 mmol/L (98-107); Estimated GFR (African America 58 (>=60 mL/min/1.73m^2); Estimated GFR (Non-African Ame 48 (>=60 mL/min/1.73m^2); Globulin 3.9 g/dL; Glucose 170 mg/dL (74-106); Potassium 4.1 mmol/L (3.5-5.1); Sodium 143 mmol/L (136-145); Total Protein 6.5 g/dL (6.4-8.2)
[2024-11-15] MEDS: SODIUM CHLORIDE 0.9% INHALATION 3 ML NEB IH ×3 (07:40→23:19)
--- NOTE | 2024-11-15 08:33 | CM.NOTE ---
2nd Important Message From Medicare discussed with pt, denies any questions or concerns.
[2024-11-15] MEDS: PAROXETINE HCL 20 MG TABLET 30 MG PO (08:53)
[2024-11-15] MEDS: INSULIN ASPART 300 UNIT/3 ML PEN SUBQ ×3 (08:53→17:00)
[2024-11-15] MEDS: OMEPRAZOLE 20 MG CAPSULE.DR PO ×2 (08:54→17:00)
[2024-11-15] MEDS: SOLIFENACIN SUCCINATE 10 MG TABLET PO (08:54)
[2024-11-15] MEDS: FUROSEMIDE 20 MG TABLET PO (08:54)
[2024-11-15] MEDS: ENOXAPARIN SODIUM 40 MG/0.4 ML SYRINGE SUBQ (08:54)
[2024-11-15] MEDS: PREGABALIN 75 MG CAPSULE PO ×2 (08:54→22:43)
[2024-11-15] MEDS: AZITHROMYCIN 250 MG TABLET 500 MG PO (08:54)
[2024-11-15] MEDS: MAGNESIUM OXIDE 400 MG TABLET PO (08:54)
[2024-11-15] MEDS: MONTELUKAST SODIUM 10 MG TABLET PO (08:54)
--- NOTE | 2024-11-15 10:24 | CM.NOTE ---
Rounds made with Dr. Ohara, pt will not discharge today. Pt continues to c/o dyspnea at rest and exertion worsening. Discussed with pt code status, pt in agreement to DNRCCA after education provided.
--- NOTE | 2024-11-15 10:35 | PM.IMPN1 ---
Progress Note: A&P Assessment and Plan (1) Pneumonia: Assessment and Plan: Right sided PNA noted on CT chest. on Rocephin and azithromycin. Qualifiers: Laterality: bilateral Lung location: lower lobe of lung Pneumonia type: due to unspecified organism Qualified Code(s): J18.9 - Pneumonia, unspecified organism (2) Acute and chronic respiratory failure with hypoxia: Assessment and Plan: Still dyspneic at rest and on minimal exertion. Still needing 4 L O2 (3) Acute exacerbation of chronic obstructive pulmonary disease (COPD): Assessment and Plan: Still on 4 L O2. Continue with inhaled bronchodilators, steroids and saline nebs. No improvement. (4) Chronic heart failure with preserved ejection fraction (HFpEF): Assessment and Plan: C/w oral lasix. Monitor closely as risk of volume overload with Steroids. (5) Chronic respiratory failure with hypoxia: Assessment and Plan: Baseline O2 requirement is 3 L (6) Lumbar stenosis with neurogenic claudication: Assessment and Plan: Continue with Lyrica. (7) Depression: Assessment and Plan: Continue with Paxil/trazodone. Qualifiers: Depression Type: major depressive disorder Major depression recurrence: recurrent Active/Remission status: in full remission Qualified Code(s): F33.42 - Major depressive disorder, recurrent, in full remission Internal Medicine - PN: Subj Subjective Interval history: Seen and examined today. No improvement. Still on4 L and considerably SOB at rest. Exam Constitutional Vital Signs, click to edit/add: Last Vital Signs Temp 98 F 11/15/24 05:09 Pulse 96 H 11/15/24 09:53 Resp 20 11/15/24 08:00 BP 131/87 11/14/24 19:27 Pulse Ox 90 L 11/15/24 07:41 O2 Del Method Nasal Cannula 11/15/24 07:41 O2 Flow Rate 4 11/15/24 07:41 Documenting provider has reviewed patient's vital signs: yes Common normals: oriented x3 General appearance: cooperative, ill appearing and frail appearing Respiratory Common normals: normal respiratory effort Other: Coarse/harsh breath sounds. Wheezing on exam. Cardio Common normals: regular rate, S1 normal heart sound and S2 normal heart sound Rate: regular rate Heart sounds: S1 normal and S2 normal Extremity Common normals: no clubbing, cyanosis or edema Neuro Common normals: oriented x3, moves all extremities and no focal motor deficits Psych Common normals: mental status grossly normal, denies hallucinations, denies homicidal ideation and denies suicidal ideation Internal Medicine - PN: Obj Da Labs Labs: Laboratory Results - last 24 hr 11/14/24 11/14/24 11/14/24 11:31 16:09 21:15 WBC RBC Hgb Hct MCV MCH MCHC RDW Plt Count MPV Neut % (Auto) Lymph % (Auto) [place] % (Auto) Eos % (Auto) Baso % (Auto) Neut # (Auto) Lymph # (Auto) [place] # (Auto) Eos # (Auto) Baso # (Auto) Abs Immat Gran (auto) Imm/Tot Granulo (auto) Sodium Potassium Chloride Carbon Dioxide Anion Gap BUN Creatinine Est GFR ( Amer) Est GFR (Non-Af Amer) BUN/Creatinine Ratio Glucose Calcium Total Bilirubin AST ALT Alkaline Phosphatase Total Protein Albumin Globulin Albumin/Globulin Ratio POC Glucose 202 H 167 H 144 H 11/15/24 05:24 WBC 6.8 RBC 3.91 L Hgb 11.5 L Hct 36.6 MCV 93.6 MCH 29.4 MCHC 31.4 RDW 13.1 Plt Count 318 MPV 8.9 L Neut % (Auto) 78.0 H Lymph % (Auto) 10.5 L [place] % (Auto) 6.5 Eos % (Auto) 0.0 L Baso % (Auto) 0.3 Neut # (Auto) 5.3 Lymph # (Auto) 0.7 L [place] # (Auto) 0.4 Eos # (Auto) 0.0 Baso # (Auto) 0.0 Abs Immat Gran (auto) 0.32 H Imm/Tot Granulo (auto) 4.7 H Sodium 143 Potassium 4.1 Chloride 105 Carbon Dioxide 32.3 H Anion Gap 9.8 BUN 22.0 H Creatinine 1.13 H Est GFR ( Amer) 58 L Est GFR (Non-Af Amer) 48 L BUN/Creatinine Ratio 19.5 Glucose 170 H Calcium 8.6 Total Bilirubin 0.1 L AST 12 L ALT 12 L Alkaline Phosphatase 89 Total Protein 6.5 Albumin 2.6 L Globulin 3.9 Albumin/Globulin Ratio 0.7 POC Glucose
--- NOTE | 2024-11-15 10:37 | W.ACP ---
Advance Care Planning Advance Care Planning Discussion Does patient have a terminal or chronic,progressive disease such that prognosis is less than 6 months: No Advance care planning discussion participants: patient Advance care planning discussion summary: 69 y o female with chronic resp failure, severe COPD/Asthma, HFpEF with multiple admissions for COPD/asthma exacerbations is currently being admitted for acute on chronic resp failure, COPD/asthma exacerbation and PNA. Goal of care d/w patient. Explained code status to the patient. Patient's questions, concerns answered. She understands/realizes that she has multiple comorbidities and that her chronic respiratory issues are progressively worsening. She changed her code status to DNR CCA and would also not like to be Intubated if needed. Patient's son was also present bedside. Physician Time Time Spent Time Spent: More than 15 minutes spent with family
[2024-11-15] MEDS: BUDESONIDE 0.5 MG/2 ML AMPULE NEB IH ×2 (11:13→23:19)
[2024-11-15 11:46] LABS: Glucometer 163 mg/dL (74-106)
--- NOTE | 2024-11-15 12:18 | CM.NOTE ---
Spoke with pt regarding preventative medicine and [employer]. Pt does follow close with Dr. Lopes for COPD. Pt states Dr. Lopes has already been in today to see her. Pt will continue f/u with Dr. Lopes at discharge.
[2024-11-15 17:01] LABS: Glucometer 173 mg/dL (74-106)
[2024-11-15] MEDS: ACETAMINOPHEN 325 MG TABLET 650 MG PO (17:57)
[2024-11-15 18:38] LABS: C. Difficile PCR NEGATIVE
[2024-11-15 21:24] LABS: Glucometer 119 mg/dL (74-106)
[2024-11-15] MEDS: CEFTRIAXONE 1,000 MG in 0.9 % SODIUM CHLORIDE 50 ML 100 MG IV (22:42)
[2024-11-15] MEDS: TRAZODONE HCL 50 MG TABLET 100 MG PO (22:43)
[2024-11-16] VITALS (22 sets, daily range): BP systolic 91–167; BP diastolic 53–91; PULSE 67–92; TEMP 36.6–36.9; O2SAT 91–94
[2024-11-16] MEDS: IPRATROPIUM/ALBUTEROL SULFATE 3 ML AMPUL.NEB IH ×6 (03:55→23:16)
[2024-11-16] MEDS: BACLOFEN 10 MG TABLET PO ×3 (05:59→21:11)
[2024-11-16] MEDS: METHYLPREDNISOLONE SOD SUCC PF 40 MG/ML VIAL IVP ×3 (06:00→21:12)
[2024-11-16 06:14] LABS: Basophils Percent Auto 0.3 % (0.2-2.0); Hematocrit 37.4 % (36.0-48.0); Hemoglobin 11.8 g/dL (12.0-16.0); Immature Granulocytes Abs Auto 0.31 10^3/uL (0.00-0.03); Immature Granulocytes Pct Auto 4.5 % (0.0-0.5); Lymphocytes Absolute Auto 0.6 10^3/uL (1.2-3.8); Lymphocytes Percent Auto 8.6 % (20.5-60.0); Mean Corpuscular HGB Conc 31.6 g/dL (29.9-35.2); Mean Corpuscular Hemoglobin 29.1 pg (26.7-34.0); Mean Corpuscular Volume 92.3 fL (81.0-99.0); Mean Platelet Volume 8.9 fL (9.5-13.5); Monocytes Absolute Auto 0.4 10^3/uL (0.3-0.8); Neutrophils Absolute Auto 5.5 10^3/uL (1.4-6.5); Neutrophils Percent Auto 80.6 % (43.0-75.0); Platelet Count 321 10^3/uL (150-450); Red Blood Count 4.05 10^6/uL (4.20-5.40); White Blood Count 6.9 10^3/uL (4.0-11.0)
[2024-11-16 06:48] LABS: Alanine Aminotransferase 11 U/L (14-59); Alkaline Phosphatase 82 U/L (46-116); Anion Gap 9.9; Aspartate Amino Transferase 13 U/L (15-37); BUN Creatinine Ratio 23.8; Bilirubin Total 0.1 mg/dL (0.2-1.0); Calcium 8.7 mg/dL (8.5-10.1); Carbon Dioxide 33.5 mmol/L (21.0-32.0); Chloride 103 mmol/L (98-107); Estimated GFR (African America >60 (>=60 mL/min/1.73m^2); Estimated GFR (Non-African Ame 52 (>=60 mL/min/1.73m^2); Glucose 182 mg/dL (74-106); Potassium 4.4 mmol/L (3.5-5.1); Sodium 142 mmol/L (136-145); Total Protein 6.8 g/dL (6.4-8.2)
[2024-11-16] MEDS: SODIUM CHLORIDE 0.9% INHALATION 3 ML NEB IH ×3 (07:22→23:15)
[2024-11-16] MEDS: SOLIFENACIN SUCCINATE 10 MG TABLET PO (08:14)
[2024-11-16] MEDS: MAGNESIUM OXIDE 400 MG TABLET PO (08:14)
[2024-11-16] MEDS: PAROXETINE HCL 20 MG TABLET 30 MG PO (08:14)
[2024-11-16] MEDS: AZITHROMYCIN 250 MG TABLET 500 MG PO (08:14)
[2024-11-16] MEDS: MONTELUKAST SODIUM 10 MG TABLET PO (08:14)
[2024-11-16] MEDS: ENOXAPARIN SODIUM 40 MG/0.4 ML SYRINGE SUBQ (08:14)
[2024-11-16] MEDS: OMEPRAZOLE 20 MG CAPSULE.DR PO ×2 (08:14→16:23)
[2024-11-16] MEDS: PREGABALIN 75 MG CAPSULE PO ×2 (08:15→20:01)
[2024-11-16] MEDS: FUROSEMIDE 20 MG TABLET PO (08:15)
[2024-11-16] MEDS: INSULIN ASPART 300 UNIT/3 ML PEN SUBQ ×3 (08:16→21:14)
--- NOTE | 2024-11-16 08:37 | PM.PN ---
Progress Note: Subjective Subjective Interval history: Patient reports shortness of breath has improved and coughing has been more productive. Still on 4 L NC and SOB at rest. She uses 3L NC at home. She denies fevers or chills. No n/v/d Exam Narrative Exam Narrative: General: Patient is alert, and oriented to person, place and time with normal affect, proper hygiene Skin: no visible rashes, or ulcers Head: atraumatic, acephalic Eyes: PERRLA, no nystagmus present, conjunctiva clear, no scleral icterus Ears: normal gross auditory acuity Nose: symmetric, no discharge, no maxillary or frontal sinus tenderness Mouth/Throat: upper and lower lip sore Heart: Normal rate and rhythm, no murmurs/rubs/gallops Lungs: no audible wheezes, crackles and diminished breath sounds on right Abdomen: Normal audible bowel sounds, no distension, No palpable masses, no organomegaly, no rebound/guarding/ or rigidity Musculoskeletal: no swelling bilateral lower extremities Neuro: CN II-X grossly intact Constitutional Vital Signs, click to edit/add: Last Vital Signs Temp 98.2 F 11/16/24 07:59 Pulse 75 11/16/24 08:00 Resp 22 H 11/16/24 07:59 BP 167/91 H 11/16/24 07:59 Pulse Ox 92 L 11/16/24 07:59 O2 Del Method Nasal Cannula 11/16/24 07:59 O2 Flow Rate 4 11/16/24 07:59 Progress Note: Objective Labs Labs: Short CBC 11/16/24 Range/Units 05:59 WBC 6.9 (4.0-11.0) 10^3/uL Hgb 11.8 L (12.0-16.0) g/dL Hct 37.4 (36.0-48.0) % Plt Count 321 (150-450) 10^3/uL BMP 11/16/24 05:59 Sodium 142 Potassium 4.4 Chloride 103 Carbon Dioxide 33.5 H BUN 25.0 H Creatinine 1.05 H Glucose 182 H Calcium 8.7 Liver Function 11/16/24 Range/Units 05:59 Total Bilirubin 0.1 L (0.2-1.0) mg/dL AST 13 L (15-37) U/L ALT 11 L (14-59) U/L Alkaline Phosphatase 82 (46-116) U/L Progress Note: A&P Assessment and Plan (1) Pneumonia: Assessment and Plan: Right sided Pneumonia noted on CT chest. Continue on Rocephin and azithromycin. Qualifiers: Laterality: bilateral Lung location: lower lobe of lung Pneumonia type: due to unspecified organism Qualified Code(s): J18.9 - Pneumonia, unspecified organism (2) Acute and chronic respiratory failure with hypoxia: Assessment and Plan: Still needing 4 L O2 , up from her 3L at home (3) Acute exacerbation of chronic obstructive pulmonary disease (COPD): Assessment and Plan: Continue with inhaled bronchodilators, steroids and saline nebs. (4) Chronic heart failure with preserved ejection fraction (HFpEF): Assessment and Plan: continue oral lasix. Monitor closely as risk of volume overload with Steroids. (5) Chronic respiratory failure with hypoxia: Assessment and Plan: Baseline O2 requirement is 3 L (6) Lumbar stenosis with neurogenic claudication: Assessment and Plan: Continue with Lyrica. (7) Depression: Assessment and Plan: Continue with Paxil/trazodone. Qualifiers: Active/Remission status: in full remission Depression Type: major depressive disorder Major depression recurrence: recurrent Qualified Code(s): F33.42 - Major depressive disorder, recurrent, in full remission Plan patient is a DNRCCA continue with Lovenox for DVT prophylaxis Patient is not back to baseline and is still in Acute respiratory failure from Pneumonia and will most likely require 1-2 days of hospital necessary care.
[2024-11-16 09:55] LABS: Albumin Globulin Ratio 0.7; Albumin Level 2.9 g/dL (3.4-5.0); Globulin 3.9 g/dL
[2024-11-16] MEDS: BUDESONIDE 0.5 MG/2 ML AMPULE NEB IH ×2 (10:43→23:15)
[2024-11-16 11:35] LABS: Glucometer 205 mg/dL (74-106)
[2024-11-16 16:28] LABS: Glucometer 134 mg/dL (74-106)
[2024-11-16 19:44] LABS: Glucometer 212 mg/dL (74-106)
[2024-11-16] MEDS: CEFTRIAXONE 1,000 MG in 0.9 % SODIUM CHLORIDE 50 ML 100 MG IV (19:50)
[2024-11-16] MEDS: PRAMIPEXOLE 0.125 MG TABLET 0.25 MG PO (21:11)
[2024-11-16] MEDS: TRAZODONE HCL 50 MG TABLET 100 MG PO (21:11)
[2024-11-17] VITALS (23 sets, daily range): BP systolic 123–148; BP diastolic 74–82; PULSE 64–87; TEMP 36.4–37.3; O2SAT 90–94
[2024-11-17] MEDS: IPRATROPIUM/ALBUTEROL SULFATE 3 ML AMPUL.NEB IH ×6 (03:52→23:36)
[2024-11-17] MEDS: BACLOFEN 10 MG TABLET PO ×3 (05:55→21:13)
[2024-11-17] MEDS: METHYLPREDNISOLONE SOD SUCC PF 40 MG/ML VIAL IVP (05:55)
[2024-11-17 06:18] LABS: Hematocrit 33.8 % (36.0-48.0); Hemoglobin 10.5 g/dL (12.0-16.0); Mean Corpuscular HGB Conc 31.1 g/dL (29.9-35.2); Mean Corpuscular Hemoglobin 27.5 pg (26.7-34.0); Mean Corpuscular Volume 88.5 fL (81.0-99.0); Platelet Count 261 10^3/uL (150-450); Red Blood Count 3.82 10^6/uL (4.20-5.40); Red Cell Distribution Width 13.9 % (11.0-15.0)
[2024-11-17 06:31] LABS: Alanine Aminotransferase 38 U/L (14-59); Albumin Globulin Ratio 0.8; Albumin Level 2.9 g/dL (3.4-5.0); Alkaline Phosphatase 92 U/L (46-116); Anion Gap 10.5; Aspartate Amino Transferase 26 U/L (15-37); Bilirubin Total 0.3 mg/dL (0.2-1.0); Calcium 8.6 mg/dL (8.5-10.1); Carbon Dioxide 28.5 mmol/L (21.0-32.0); Chloride 107 mmol/L (98-107); Estimated GFR (African America 28 (>=60 mL/min/1.73m^2); Estimated GFR (Non-African Ame 23 (>=60 mL/min/1.73m^2); Globulin 3.5 g/dL; Glucose 216 mg/dL (74-106); Sodium 142 mmol/L (136-145); Total Protein 6.4 g/dL (6.4-8.2)
[2024-11-17 06:42] LABS: Band Neutrophils Absolute 0.3 10^3/uL (0.0-0.3); Lymphocytes Absolute Manual 0.99 10^3/uL (1.20-3.80); Metamyelocytes Absolute Manual 0.33; Monocytes Absolute Manual 0.55 10^3/uL (0.30-0.80); Myelocytes Absolute Manual 0.11
[2024-11-17 06:43] LABS: Segmented Neut Absolute Manual 8.69 10^3/uL (1.4-6.5)
[2024-11-17] MEDS: SODIUM CHLORIDE 0.9% INHALATION 3 ML NEB IH ×3 (07:42→23:36)
[2024-11-17 07:56] LABS: Glucometer 146 mg/dL (74-106)
[2024-11-17] MEDS: AZITHROMYCIN 250 MG TABLET 500 MG PO (08:11)
[2024-11-17] MEDS: OMEPRAZOLE 20 MG CAPSULE.DR PO ×2 (08:11→16:54)
[2024-11-17] MEDS: INSULIN ASPART 300 UNIT/3 ML PEN SUBQ ×2 (08:11→11:08)
[2024-11-17] MEDS: SOLIFENACIN SUCCINATE 10 MG TABLET PO (08:11)
[2024-11-17] MEDS: PAROXETINE HCL 20 MG TABLET 30 MG PO (08:11)
[2024-11-17] MEDS: ENOXAPARIN SODIUM 40 MG/0.4 ML SYRINGE SUBQ (08:11)
[2024-11-17] MEDS: FUROSEMIDE 20 MG TABLET PO (08:11)
[2024-11-17] MEDS: MONTELUKAST SODIUM 10 MG TABLET PO (08:12)
[2024-11-17] MEDS: MAGNESIUM OXIDE 400 MG TABLET PO (08:12)
[2024-11-17] MEDS: PREGABALIN 75 MG CAPSULE PO ×2 (08:12→21:12)
--- NOTE | 2024-11-17 09:06 | PM.PN ---
Progress Note: Subjective Subjective Interval history: Overall patient feels improved today. Shortness of breath and cough has improved. She denies fevers or chills. She has not got great sleep so still feels very tired. She notes she is ambulating with her walker without issues. No other further complaints. Discussed with patient, increase in Creatinine today is most likely steroid induced. I have stopped her IV Solumedrol and will place on oral prednisone. Plan for discharge tomorrow. Exam Narrative Exam Narrative: General: Patient is alert, and oriented to person, place and time with normal affect, proper hygiene Skin: no visible rashes, or ulcers Head: atraumatic, acephalic Eyes: PERRLA, no nystagmus present, conjunctiva clear, no scleral icterus Ears: normal gross auditory acuity Nose: symmetric, no discharge, no maxillary or frontal sinus tenderness Mouth/Throat: upper and lower lip sore Heart: Normal rate and rhythm, no murmurs/rubs/gallops Lungs: no audible wheezes, crackles and diminished breath sounds on right Abdomen: Normal audible bowel sounds, no distension, No palpable masses, no organomegaly, no rebound/guarding/ or rigidity Musculoskeletal: no swelling bilateral lower extremities Neuro: CN II-X grossly intact Constitutional Vital Signs, click to edit/add: Last Vital Signs Temp 98.2 F 11/17/24 08:05 Pulse 73 11/17/24 08:05 Resp 18 11/17/24 08:05 BP 129/74 11/17/24 08:05 Pulse Ox 90 L 11/17/24 08:05 O2 Del Method Nasal Cannula 11/17/24 08:05 O2 Flow Rate 3 11/17/24 08:05 Progress Note: Objective Labs Labs: Short CBC 11/17/24 Range/Units 06:02 WBC 11.0 (4.0-11.0) 10^3/uL Hgb 10.5 L (12.0-16.0) g/dL Hct 33.8 L (36.0-48.0) % Plt Count 261 (150-450) 10^3/uL BMP 11/17/24 06:02 Sodium 142 Potassium 4.0 Chloride 107 Carbon Dioxide 28.5 BUN 57.0 H Creatinine 2.11 H Glucose 216 H Calcium 8.6 Liver Function 01/11/25 01/12/25 Range/Units 05:59 06:02 Total Bilirubin 0.3 (0.2-1.0) mg/dL AST 26 (15-37) U/L ALT 38 (14-59) U/L Alkaline Phosphatase 92 (46-116) U/L Albumin 2.9 L 2.9 L (3.4-5.0) g/dL Progress Note: A&P Assessment and Plan (1) Pneumonia: Assessment and Plan: Right sided Pneumonia noted on CT chest. Continue on Rocephin and azithromycin. Qualifiers: Laterality: bilateral Lung location: lower lobe of lung Pneumonia type: due to unspecified organism Qualified Code(s): J18.9 - Pneumonia, unspecified organism (2) Acute and chronic respiratory failure with hypoxia: Assessment and Plan: down to her 3L at home [place] oxygen; encourage ambulation with walker, hopeful discharge home tomorrow (3) Acute exacerbation of chronic obstructive pulmonary disease (COPD): Assessment and Plan: Continue with inhaled bronchodilators, steroids and saline nebs. stop IV solumedrol today and place on PO prednisone (4) Chronic heart failure with preserved ejection fraction (HFpEF): Assessment and Plan: continue oral lasix. Monitor closely as risk of volume overload with Steroids. (5) Chronic respiratory failure with hypoxia: Assessment and Plan: Baseline O2 requirement is 3 L (6) Lumbar stenosis with neurogenic claudication: Assessment and Plan: Continue with Lyrica. (7) Depression: Assessment and Plan: Continue with Paxil/trazodone. Qualifiers: Active/Remission status: in full remission Depression Type: major depressive disorder Major depression recurrence: recurrent Qualified Code(s): F33.42 - Major depressive disorder, recurrent, in full remission Plan patient is a DNRCCA continue with Lovenox for DVT prophylaxis Patient is almost back to baseline and will most likely require 1 more day of hospital necessary care.
[2024-11-17 10:56] LABS: Glucometer 247 mg/dL (74-106)
[2024-11-17] MEDS: BUDESONIDE 0.5 MG/2 ML AMPULE NEB IH ×2 (11:20→23:38)
[2024-11-17 16:56] LABS: Glucometer 141 mg/dL (74-106)
[2024-11-17] MEDS: CEFTRIAXONE 1,000 MG in 0.9 % SODIUM CHLORIDE 50 ML 100 MG IV (21:12)
[2024-11-17] MEDS: TRAZODONE HCL 50 MG TABLET 100 MG PO (21:12)
[2024-11-17] MEDS: ACETAMINOPHEN 325 MG TABLET 650 MG PO (21:12)
[2024-11-17 21:16] LABS: Glucometer 140 mg/dL (74-106)
[2024-11-18] VITALS (10 sets, daily range): BP systolic 108–116; BP diastolic 55–72; PULSE 59–77; TEMP 36.4–36.5; O2SAT 67–93
[2024-11-18] MEDS: IPRATROPIUM/ALBUTEROL SULFATE 3 ML AMPUL.NEB IH ×3 (04:00→10:45)
[2024-11-18] MEDS: BACLOFEN 10 MG TABLET PO (05:22)
[2024-11-18] MEDS: SODIUM CHLORIDE 0.9% INHALATION 3 ML NEB IH (06:52)
[2024-11-18] MEDS: OMEPRAZOLE 20 MG CAPSULE.DR PO (09:01)
[2024-11-18] MEDS: MAGNESIUM OXIDE 400 MG TABLET PO (09:01)
[2024-11-18] MEDS: AZITHROMYCIN 250 MG TABLET 500 MG PO (09:01)
[2024-11-18] MEDS: SOLIFENACIN SUCCINATE 10 MG TABLET PO (09:01)
[2024-11-18] MEDS: PREDNISONE 20 MG TABLET 40 MG PO (09:01)
[2024-11-18] MEDS: PREGABALIN 75 MG CAPSULE PO (09:01)
[2024-11-18] MEDS: PAROXETINE HCL 20 MG TABLET 30 MG PO (09:01)
[2024-11-18] MEDS: MONTELUKAST SODIUM 10 MG TABLET PO (09:01)
[2024-11-18] MEDS: ENOXAPARIN SODIUM 40 MG/0.4 ML SYRINGE SUBQ (09:02)
[2024-11-18] MEDS: FUROSEMIDE 20 MG TABLET PO (09:02)
--- NOTE | 2024-11-18 09:03 | PM.DS1 ---
DS: Providers Provider Date of admission: 11/13/24 10:27 Primary care physician: AIDA BLANC Attending physician on admission: Magy Ross Consults: 11/12/24 16:47 Occupational Therapy Eval and Treat Routine Reason for consultation: Ambulatory dysfunction/weakness Physical Therapy Eval and Treat Routine Reason for consultation: Ambulatory dysfunction/weakness 11/13/24 10:27 Consult to Pulmonology Routine Consulting Provider: Corbin Lopes Reason for consultation: COPD Discharging clinician: Magy Ross DS: Diagnosis Discharge Diagnosis (1) Pneumonia: Qualifiers: Laterality: bilateral Lung location: lower lobe of lung Pneumonia type: due to unspecified organism Qualified Code(s): J18.9 - Pneumonia, unspecified organism (2) Acute and chronic respiratory failure with hypoxia: (3) Acute exacerbation of chronic obstructive pulmonary disease (COPD): (4) Chronic heart failure with preserved ejection fraction (HFpEF): (5) Chronic respiratory failure with hypoxia: (6) Lumbar stenosis with neurogenic claudication: (7) Depression: Qualifiers: Active/Remission status: in full remission Depression Type: major depressive disorder Major depression recurrence: recurrent Qualified Code(s): F33.42 - Major depressive disorder, recurrent, in full remission DS: Summary Hospital Course Hospital Course: Patient admitted on 11/12/24, 69 y o female with severe COPD/Asthma, chronic resp failure with hypoxia on 3 L O2 presented to ED with cough, nasal congestion, rhinorrhea, sore throat, nausea, dry heaving, multiple episodes daily of loose watery diarrhea, increased cough with sputum production, fevers, body aches, myalgias and arthralgias. Patient also reports worsening SOB and inability to catch her breath. She is on home oxygen always, has COPD and takes breathing treatments as needed. She reports her symptoms started a few days ago. In ED, patient was found to have COPD/asthma exacerbation and was given IV solumedrol and Duonebs. She was hypoxic on her baseline O2 (3 L) and was admitted for COPD exacerbation and hypoxia. Also found to have Right sided PNA noted on CT chest, she was continued on Rocephin and azithromycin. At the time of discharge, WBC's have improved, Her oxygen requirements are now back to 3L NC which is her baseline. She will be treated with doxycycline 100mg BID x 10 days, I have also sent a prednisone taper for 4 weeks. She has close outpatient follow up with pcp. She will resume home medications including breathing nebulizer treatments. She may return to the ER with any worsening signs or symptoms. Status at Discharge Functional status at discharge: uses cane/walker Overall status at discharge: patient is back to baseline Time Spent with Patient Time attestation: Total time spent providing and/or coordinating discharge services: Time spent: greater than 30 minutes Exam Narrative Exam Narrative: General: Patient is alert, and oriented to person, place and time with normal affect, proper hygiene Skin: no visible rashes, or ulcers Head: atraumatic, acephalic Eyes: PERRLA, no nystagmus present, conjunctiva clear, no scleral icterus Ears: normal gross auditory acuity Nose: symmetric, no discharge, no maxillary or frontal sinus tenderness Mouth/Throat: upper and lower lip sore Heart: Normal rate and rhythm, no murmurs/rubs/gallops Lungs: no audible wheezes, crackles and diminished breath sounds on right Abdomen: Normal audible bowel sounds, no distension, No palpable masses, no organomegaly, no rebound/guarding/ or rigidity Musculoskeletal: no swelling bilateral lower extremities Neuro: CN II-X grossly intact Constitutional Vital Signs, click to edit/add: Last Vital Signs Temp 97.7 F 11/18/24 07:16 Pulse 71 11/18/24 07:36 Resp 18 11/18/24 07:16 BP 108/55 11/18/24 07:16 Pulse Ox 91 L 11/18/24 07:16 O2 Del Method Nasal Cannula 11/18/24 07:16 O2 Flow Rate 3 11/18/24 07:16 DS: Data Data Completed and Pending Labs on day of discharge: Labs from last 24 hours 11/17/24 11/17/24 11/17/24 21:15 16:54 10:55 POC Glucose 140 H 141 H 247 H Discharge Plan Discharge Disposition: Home, Self-Care Discharge Medications: New doxycycline hyclate 100 mg capsule 100 mg PO BID 10 Days Qty: 20 0RF prednisone 10 mg tablet 10 mg PO .as directed Qty: 84 0RF Rx Instructions: week #1: 2 tabs PO TID x 7 days, week #2: 1 tab PO TID x 7 days, Week #3 1 tab PO BID x 7 days, Week #4 1 tab PO daily x 7days then stop Continued albuterol sulfate 2.5 mg /3 mL (0.083 %) solution for nebulization 2.5 mg inhalation QID PRN (Reason: shortness of breath or wheezing) furosemide 20 mg tablet 20 mg PO DAILY sodium chloride 0.9 % solution for nebulization 2.5 ml INHALATION Q8H PRN (Reason: shortness of breath or wheezing) latanoprost 0.005 % drops 1 drp OPHTHALMIC (EYE) .HS magnesium oxide 400 mg (241.3 mg magnesium) tablet 400 mg PO DAILY Rx Instructions: WITH FOOD omeprazole 20 mg capsule,delayed release(DR/EC) 20 mg PO BID Trelegy Ellipta 200-62.5-25 mcg blister with device 1 inh INHALATION Q24H pramipexole [Mirapex] 0.25 mg tablet 0.25 mg PO QPM PRN (Reason: restless leg(s)) Rx Instructions: administer 2 - 3 hours before bedtime montelukast 10 mg tablet 10 mg PO DAILY paroxetine HCl 30 mg tablet 30 mg PO QDAY pregabalin 75 mg capsule 75 mg PO BID solifenacin 10 mg tablet 10 mg PO QDAY trazodone 100 mg tablet 100 mg PO .qhs baclofen 10 mg tablet 10 mg PO Q8H Activity: ambulate only with your walker and wear oxygen at all times Activity Detail: 3L via [place] oxygen Diet: advance to your usual diet Print Language: Tamazight Forms: Portal Instructions Follow Up Appointments: Aida Blanc MondayNov 26 at 10:30 AM [phone]
[2024-11-18 09:25] LABS: Basophils Absolute Auto 0.1 10^3/uL (0.0-0.1); Basophils Percent Auto 0.4 % (0.2-2.0); Eosinophils Absolute Auto 0.1 10^3/uL (0.0-0.7); Eosinophils Percent Auto 0.8 % (0.9-7.0); Hematocrit 41.8 % (36.0-48.0); Hemoglobin 13.2 g/dL (12.0-16.0); Immature Granulocytes Abs Auto 0.38 10^3/uL (0.00-0.03); Immature Granulocytes Pct Auto 2.7 % (0.0-0.5); Lymphocytes Absolute Auto 2.1 10^3/uL (1.2-3.8); Lymphocytes Percent Auto 14.4 % (20.5-60.0); Mean Corpuscular HGB Conc 31.6 g/dL (29.9-35.2); Mean Corpuscular Hemoglobin 29.9 pg (26.7-34.0); Mean Corpuscular Volume 94.6 fL (81.0-99.0); Mean Platelet Volume 8.8 fL (9.5-13.5); Monocytes Percent Auto 6.9 % (1.7-12.0); Neutrophils Absolute Auto 10.7 10^3/uL (1.4-6.5); Neutrophils Percent Auto 74.8 % (43.0-75.0); Platelet Count 376 10^3/uL (150-450); Red Blood Count 4.42 10^6/uL (4.20-5.40); Red Cell Distribution Width 13.2 % (11.0-15.0); White Blood Count 14.3 10^3/uL (4.0-11.0)
[2024-11-18 09:44] LABS: Alanine Aminotransferase 20 U/L (14-59); Albumin Globulin Ratio 0.8; Alkaline Phosphatase 95 U/L (46-116); Anion Gap 12.4; Aspartate Amino Transferase 15 U/L (15-37); BUN Creatinine Ratio 21.3; Bilirubin Total 0.3 mg/dL (0.2-1.0); Calcium 8.2 mg/dL (8.5-10.1); Carbon Dioxide 33.6 mmol/L (21.0-32.0); Chloride 101 mmol/L (98-107); Estimated GFR (African America 51 (>=60 mL/min/1.73m^2); Estimated GFR (Non-African Ame 42 (>=60 mL/min/1.73m^2); Globulin 3.8 g/dL; Glucose 119 mg/dL (74-106); Sodium 143 mmol/L (136-145); Total Protein 6.8 g/dL (6.4-8.2)
[2024-11-18] MEDS: BUDESONIDE 0.5 MG/2 ML AMPULE NEB IH (10:45)
--- NOTE | 2024-11-18 11:24 | CM.NOTE ---
Rounds made with Dr. Ross, pt will discharge to home today. Pt will f/u with PCP and Dr. Lopes.
--- NOTE | 2024-11-19 14:58 | CM.DCFOLLOWU ---
Person spoke with: Diana How are you feeling? Much better How is your pain? No pain Did you understand your discharge instructions? Yes Do you have any questions about your discharge instructions? No Were you given any prescriptions at discharge? Yes Were you able to get your prescriptions filled? Yes Do you understand how to take your medications as ordered? Yes Do you have any questions about your follow up appointment and do you plan to keep your follow up appointment? No it is scheduled and I plan on going Is there anything else that you would like to discuss? No Questions/Comments/Concerns/Other:
== END 2024-11-18 12:10 | disposition home or self-care (01) | DRG 190 ==
LOC: ER 14:40 → MS 11-18 11:01
PROVIDERS: Internal Medicine; Admitting Provider Family Medicine; Emergency Provider Emergency Medicine; Visit Provider Family Medicine
DX: J44.1 Chronic obstructive pulmonary disease with (acute) exacerbation (principal); J18.9 Pneumonia, unspecified organism; J96.21 Acute and chronic respiratory failure with hypoxia; G72.81 Critical illness myopathy; I11.0 Hypertensive heart disease with heart failure; I50.32 Chronic diastolic (congestive) heart failure; J45.51 Severe persistent asthma with (acute) exacerbation; Z68.41 Body mass index [BMI] 40.0-44.9, adult; J44.0 Chronic obstructive pulmonary disease with (acute) lower respiratory infection; Z66 Do not resuscitate; M48.062 Spinal stenosis, lumbar region with neurogenic claudication; E66.01 Morbid (severe) obesity due to excess calories; F33.42 Major depressive disorder, recurrent, in full remission; J39.8 Other specified diseases of upper respiratory tract; J44.89 Other specified chronic obstructive pulmonary disease; U09.9 Post COVID-19 condition, unspecified; Z99.81 Dependence on supplemental oxygen; Z79.51 Long term (current) use of inhaled steroids; Z79.899 Other long term (current) drug therapy
CPT/HCPCS: 36415; 71046; 71250; 80048; 80053; 82948; 85007; 85025; 85027; 87420; 87493; 87804; 87811; 94640; 94667; 94668; 94761; 96365; 96367; 96372; 99285; G0378; J0456; J0696; J1650; J2919; J7512

== ENCOUNTER 2025-01-02 15:38 | Inpatient (IN) | payer MEDICARE, MEDICAID, SELFPAY ==
[2025-01-02] VITALS (32 sets, daily range): BP systolic 111–173; BP diastolic 63–90; PULSE 65–88; TEMP 36.6–37.1; O2SAT 91–98; BMI 40.2; BMI 40.3
--- NOTE | 2025-01-02 15:53 | XR_ITS ---
The [address] [address] Patient Name: JHONATAN MONTOYA MRN: [id number] date: 1955 Sex: F Assigned Patient Location: ER Current Patient Location: ER Accession/Order Number: [id number] Exam Date: 01/02/2025 16:21 Report Date: 01/02/2025 16:22 At the request of: SUSAN RODRIGUEZ MD Procedure: XR chest 1V XR chest 1V 01/02/2025 4:15 PM SIGNS AND SYMPTOMS: ^sob PROTOCOL: Frontal radiograph of the chest COMPARISON: 11/12/2024 FINDINGS: The trachea is midline. There is mild cardiomegaly. Hazy airspace opacities are noted base of the right lung base. This is worse when compared to the prior exam. The bony thorax is intact. XR/XR chest 1V IMPRESSION: Bibasilar airspace opacities are noted, worse at the right lung base. This has increased when compared to the prior exam and may represent pulmonary edema or an infectious infiltrate. There is mild cardiomegaly which is unchanged. Impression dictated by: Garland Haley M.D.01/02/2025 4:22 PM Dictation Location: [place] [address] Electronically authenticated by: [id number] Y Date: 01/02/2025 16:22
[2025-01-02 16:06] LABS: Basophils Percent Auto 0.3 % (0.2-2.0); Eosinophils Absolute Auto 0.1 10^3/uL (0.0-0.7); Eosinophils Percent Auto 0.7 % (0.9-7.0); Hematocrit 37.5 % (36.0-48.0); Hemoglobin 12.3 g/dL (12.0-16.0); Immature Granulocytes Abs Auto 0.23 10^3/uL (0.00-0.03); Immature Granulocytes Pct Auto 1.8 % (0.0-0.5); Lymphocytes Absolute Auto 1.6 10^3/uL (1.2-3.8); Lymphocytes Percent Auto 12.1 % (20.5-60.0); Mean Corpuscular HGB Conc 32.8 g/dL (29.9-35.2); Mean Corpuscular Hemoglobin 30.8 pg (26.7-34.0); Mean Platelet Volume 10.2 fL (9.5-13.5); Monocytes Absolute Auto 1.1 10^3/uL (0.3-0.8); Monocytes Percent Auto 8.6 % (1.7-12.0); Neutrophils Absolute Auto 9.9 10^3/uL (1.4-6.5); Neutrophils Percent Auto 76.5 % (43.0-75.0); Platelet Count 250 10^3/uL (150-450); Red Blood Count 3.99 10^6/uL (4.20-5.40); Red Cell Distribution Width 13.9 % (11.0-15.0)
[2025-01-02] MEDS: METHYLPREDNISOLONE SOD SUCC PF 125 MG/2 ML VIAL IVP (16:08)
--- NOTE | 2025-01-02 16:15 | ED_ITS ---
HPI - SOB/Dyspnea General Chief Complaint: Shortness of Breath/Dyspnea Stated Complaint: OR DROPPING, HEADACHE, CONGESTIONS FROM [facility] Time Seen by Provider: 01/02/25 15:48 Source: patient Mode of arrival: Wheelchair Limitations: no limitations History of Present Illness HPI Narrative: Patient is a 69 years old female with history of COPD on 2 L nasal cannula at the baseline, is coming to us with almost 3 days history of cough and shortness of breath associated with diarrhea and generalized weakness, patient coming to us after she was evaluated in the outpatient clinic and she has been having difficulty getting out of the bed because of the diarrhea and generalized weakness and she lives by herself in assisted living The patient also is complaining of decreased p.o. intake, and dry heaving No fever but there is chills and is just right-sided chest pain mostly when coughing. No specific abdominal pain Related Data Home Medications ?Medication ?Instructions ?Recorded ?Confirmed fluticasone fur. 200 mcg-umeclid 1 inh inhalation Q24H COPD 04/10/23 01/02/25 62.5 mcg-vilant 25 mcg inhalat.powder (Trelegy Ellipta) magnesium oxide 400 mg (241.3 mg 400 mg PO DAILY 04/10/23 01/02/25 magnesium) tablet omeprazole 20 mg capsule,delayed 20 mg PO BID 04/10/23 01/02/25 release montelukast 10 mg tablet 10 mg PO DAILY 09/14/23 01/02/25 pramipexole 0.25 mg tablet 0.25 mg PO QPM PRN restless leg(s) 09/14/23 01/02/25 (Mirapex) paroxetine HCl 30 mg tablet 30 mg PO QDAY 11/25/23 01/02/25 pregabalin 75 mg capsule 75 mg PO BID 11/25/23 01/02/25 solifenacin 10 mg tablet 10 mg PO QDAY 11/25/23 01/02/25 trazodone 100 mg tablet 100 mg PO .qhs 11/25/23 01/02/25 baclofen 10 mg tablet 10 mg PO Q8H 02/03/24 01/02/25 albuterol sulfate 2.5 mg/3 mL 2.5 mg inhalation QID shortness of 06/06/24 01/02/25 (0.083 %) solution for nebulization breath or wheezing sodium chloride 0.9 % for 2.5 ml inhalation Q8H PRN 06/28/24 01/02/25 nebulization shortness of breath or wheezing latanoprost 0.005 % eye drops 1 drp ophthalmic (eye) .HS 08/09/24 01/02/25 Allergies Allergy/AdvReac Type Severity Reaction Status Date / Time No Known Drug Allergies Allergy Verified 01/02/25 15:47 Review of Systems ROS Status of ROS 10 or more systems reviewed and unremark able except as noted in history and below [facility] Medical History (Updated 01/02/25 @ 17:08 by Tere Barriga MD) Melanoma ?C43.9 - Malignant melanoma of skin, unspecified (ICD-10) Mediastinal lymphadenopathy ?R59.0 - Localized enlarged lymph nodes (ICD-10) Tracheobronchomalacia ?J39.8 - Other specified diseases of upper respiratory tract (ICD-10) Restrictive lung disease ?J98.4 - Other disorders of lung (ICD-10) CAD (coronary artery disease) ?I25.10 - Atherosclerotic heart disease of [place] coronary artery without angina pectoris (ICD-10) Chronic heart failure with preserved ejection fraction (HFpEF) ?I50.32 - Chronic diastolic (congestive) heart failure (ICD-10) Hypertension ?I10 - Essential (primary) hypertension (ICD-10) Acute exacerbation of COPD with asthma ?J44.1 - Chronic obstructive pulmonary disease with (acute) exacerbation (ICD-10) ?J45.901 - Unspecified asthma with (acute) exacerbation (ICD-10) Lumbar radiculopathy ?M54.16 - Radiculopathy, lumbar region (ICD-10) Encounter for long-term opiate analgesic use ?Z79.891 - FDC (current) use of opiate analgesic (ICD-10) Failed back syndrome ?M96.1 - Postlaminectomy syndrome, not elsewhere classified (ICD-10) Acute exacerbation of chronic low back pain ?M54.50 - Low back pain, unspecified (ICD-10) ?G89.29 - Other chronic pain (ICD-10) Thoracic spondylosis ?M47.814 - Spondylosis without myelopathy or radiculopathy, thoracic region (ICD-10) Hypoxia ?R09.02 - Hypoxemia (ICD-10) URI (upper respiratory infection) ?J06.9 - Acute upper respiratory infection, unspecified (ICD-10) Orthostasis ?I95.1 - Orthostatic hypotension (ICD-10) Community acquired pneumonia ?J18.9 - Pneumonia, unspecified organism (ICD-10) Severe malnutrition ?E43 - Unspecified severe protein-calorie malnutrition (ICD-10) Acute exacerbation of chronic obstructive pulmonary disease (COPD) ?J44.1 - Chronic obstructive pulmonary disease with (acute) exacerbation (ICD-10) Severe persistent asthma with exacerbation ?J45.51 - Severe persistent asthma with (acute) exacerbation (ICD-10) Morbid obesity ?E66.01 - Morbid (severe) obesity due to excess calories (ICD-10) Other pulmonary collapse ?J98.19 - Other pulmonary collapse (ICD-10) 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 - Critical illness myopathy (ICD-10) Chronic respiratory failure with hypoxia ?J96.11 - Chronic respiratory failure with hypoxia (ICD-10) Bronchitis ?J40 - Bronchitis, not specified as acute or chronic (ICD-10) Hypomagnesemia ?E83.42 - Hypomagnesemia (ICD-10) Acute hypokalemia ?E87.6 - Hypokalemia (ICD-10) Acute exacerbation of chronic obstructive pulmonary disease ?J44.1 - Chronic obstructive pulmonary disease with (acute) exacerbation (ICD-10) Myofascial pain ?M79.18 - Myalgia, other site (ICD-10) Greater trochanteric bursitis ?M70.60 - Trochanteric bursitis, unspecified hip (ICD-10) Osteoarthritis of right hip ?M16.11 - Unilateral primary osteoarthritis, right hip (ICD-10) Lumbar spondylosis ?M47.816 - Spondylosis without myelopathy or radiculopathy, lumbar region (ICD-10) Lumbar postlaminectomy syndrome ?M96.1 - Postlaminectomy syndrome, not elsewhere classified (ICD-10) Lumbar stenosis with neurogenic claudication ?M48.062 - Spinal stenosis, lumbar region with neurogenic claudication (ICD- 10) Depression ?F32.A - Depression, unspecified (ICD-10) Chronic low back pain ?M54.50 - Low back pain, unspecified (ICD-10) ?G89.29 - Other chronic pain (ICD-10) Hypoxia ?R09.02 - Hypoxemia (ICD-10) Heart murmur ?R01.1 - Cardiac murmur, unspecified (ICD-10) Chronic obstructive pulmonary disease ?J44.9 - Chronic obstructive pulmonary disease, unspecified (ICD-10) Asthma ?J45.909 - Unspecified asthma, uncomplicated (ICD-10) Surgical History (Updated 11/12/24 @ 15:31 by Darya Alexander) H/O cataract removal with insertion of prosthetic lens ?Z98.49 - Cataract extraction status, unspecified eye (ICD-10) ?Z96.1 - Presence of intraocular lens (ICD-10) Status post hip surgery ?Z98.890 - Other specified postprocedural states (ICD-10) H/O foot surgery ?Z98.890 - Other specified postprocedural states (ICD-10) H/O tubal ligation ?Z98.51 - Tubal ligation status (ICD-10) History of lumbar fusion ?Z98.1 - Arthrodesis status (ICD-10) Family History Mother Family history of CHF (congestive heart failure) Family history of hypertension Father Family history of hypertension Family history of myocardial infarction Social History Within the past year, how often did you have a drink containing alcohol: never Score interpretation: A score less than 3 is consistent with normal alcohol consumption. Smoking status: Never smoker Non-prescribed substance use: denies use Previous occupational history: retired Highest level of school completed/degree received: Associate degree: occupational, technical, vocational program Are you now , , , , never or living with a partner: In a typical week, how many times do you talk on the telephone with family, friends, or neighbors: 3 or more times per week How often do you get together with friends or relatives: 3 or more times per week How often do you attend jew or sikhism services: 4 or more times per year Do you belong to any clubs or organizations such as jew groups unions, fraternal or athletic groups, or school groups: no Total score: 2 Score interpretation: A score of greater than or equal to 2 indicates the lowest level of social isolation. Little interest or pleasure in doing things: not at all Feeling down, depressed, or hopeless: not at all Feel stressed/tense/nervous/anxious/difficulty sleeping: not at all Do you think of yourself as: straight/heterosexual Gender Identity: female Exam Narrative Exam Narrative: Nurses notes and vital signs reviewed and patient is not hypoxic. General: Well-appearing and in no apparent distress. No rash. Head: Normocephalic, atraumatic. Neck: Supple, non-tender. Eye: Pupils are equal, round and EOMI. No scleral icterus. Cardiovascular: Regular Rate and Rhythm without murmur, gallop or rub. Respiratory: Rhonchi heard in both lung [place] as well as expiratory lung wheezes bilaterally with distant breathing sounds Back: No midline thoracic or lumbar vertebral tenderness. No CVA tenderness Musculoskeletal: normal ROM, no calf or popliteal tenderness, no lower extremity edema/swelling GI: Abdomen is soft, non-distended. Normal bowel sounds. No masses appreciated. No tenderness to palpation. No rebound, guarding, or rigidity noted. Neurological: A&O x4. No cranial nerve dysfunction observed. ,Moves all extremities. Sensation intact. Psychiatric: Cooperative and interactive. Normal mood and affect. Constitutional Vital Signs, click to edit/add: Last Vital Signs Temp 98 F 01/02/25 15:43 Pulse 81 01/02/25 17:30 Resp 18 01/02/25 17:30 BP 144/87 H 01/02/25 17:30 Pulse Ox 93 L 01/02/25 17:20 O2 Del Method Nasal Cannula 01/02/25 16:53 O2 Flow Rate 3 01/02/25 16:53 Course Vital Signs Vital signs: Vital Signs Temperature 98 F 01/02/25 15:43 Pulse Rate 85 01/02/25 15:43 Respiratory Rate 24 H 01/02/25 15:43 Blood Pressure 173/87 H 01/02/25 15:43 Pulse Oximetry 95 01/02/25 15:43 Oxygen Delivery Method Room Air 01/02/25 15:43 Temperature 98 F 01/02/25 15:43 Pulse Rate 81 01/02/25 17:30 Respiratory Rate 18 01/02/25 17:30 Blood Pressure 144/87 H 01/02/25 17:30 Pulse Oximetry 93 L 01/02/25 17:20 Oxygen Delivery Method Nasal Cannula 01/02/25 16:53 Oxygen Delivery Flow Rate 3 01/02/25 16:53 MDM - SOB/Dyspnea MDM Narrative Medical decision making narrative: The patient EKG showing sinus rhythm with a heart rate of [address] elevation with the The patient CBC shows mild leukocytosis and that her chest x-ray shows obvious infiltrate mostly on the right side The patient presentation is mostly secondary to pneumonia and COPD exacerbation and it is highly suspicious that she had the flu although she was tested negative with outpatient The patient lives by herself in assisted living and she needs more help as well at home The patient has been having some increase in her oxygen requirement to 3 L from 2 L and now she is saturating 93% on 3 L Patient was started on azithromycin and ceftriaxone The patient case was discussed with and she agreed to admit the patient for further evaluation and management Lab Data Labs: Lab Results 01/02/25 01/02/25 Range/Units 16:00 16:30 WBC 13.0 H (4.0-11.0) 10^3/uL RBC 3.99 L (4.20-5.40) 10^6/uL Hgb 12.3 (12.0-16.0) g/dL Hct 37.5 (36.0-48.0) % MCV 94.0 (81.0-99.0) fL MCH 30.8 (26.7-34.0) pg MCHC 32.8 (29.9-35.2) g/dL RDW 13.9 (11.0-15.0) % Plt Count 250 (150-450) 10^3/uL MPV 10.2 (9.5-13.5) fL Neut % (Auto) 76.5 H (43.0-75.0) % Lymph % (Auto) 12.1 L (20.5-60.0) % [place] % (Auto) 8.6 (1.7-12.0) % Eos % (Auto) 0.7 L (0.9-7.0) % Baso % (Auto) 0.3 (0.2-2.0) % Neut # (Auto) 9.9 H (1.4-6.5) 10^3/uL Lymph # (Auto) 1.6 (1.2-3.8) 10^3/uL [place] # (Auto) 1.1 H (0.3-0.8) 10^3/uL Eos # (Auto) 0.1 (0.0-0.7) 10^3/uL Baso # (Auto) 0.0 (0.0-0.1) 10^3/uL Abs Immat Gran (auto) 0.23 H (0.00-0.03) 10^3/uL Imm/Tot Granulo (auto) 1.8 H (0.0-0.5) % Sodium 140 (136-145) mmol/L Potassium 3.2 L (3.5-5.1) mmol/L Chloride 103 (98-107) mmol/L Carbon Dioxide 32.2 H (21.0-32.0) mmol/L Anion Gap 8.0 BUN 8.0 (7.0-18.0) mg/dL Creatinine 1.10 H (0.55-1.02) mg/dL Est GFR ( Amer) 60 (>=60 mL/min/1.73m^2) Est GFR (Non-Af Amer) 49 L (>=60 mL/min/1.73m^2) BUN/Creatinine Ratio 7.3 Glucose 109 H (74-106) mg/dL Calcium 8.9 (8.5-10.1) mg/dL Total Bilirubin 0.4 (0.2-1.0) mg/dL AST 10 L (15-37) U/L ALT 16 (14-59) U/L Alkaline Phosphatase 109 (46-116) U/L Troponin I High Sens 19.5 (4.0-51.3) pg/mL NT-Pro-B Natriuret Pep 318.0 (<=900.0) pg/mL Total Protein 6.9 (6.4-8.2) g/dL Albumin 2.6 L (3.4-5.0) g/dL Globulin 4.3 g/dL Albumin/Globulin Ratio 0.6 Discharge Plan Discharge Chief Complaint: Shortness of Breath/Dyspnea Clinical Impression: Asthma exacerbation in COPD, Acute viral syndrome Pneumonia Qualifiers: Pneumonia type: due to unspecified organism Laterality: bilateral Lung location: lower lobe of lung Qualified Code(s): J18.9 - Pneumonia, unspecified organism Patient Disposition: Admitted As Inpatient Time of Disposition Decision: 17:08
--- NOTE | 2025-01-02 16:15 | PC.NURSE ---
pt to ED with c/o increasing cough and SOB. hx of COPD and wears 3L nc chronic at home. denies smoking hx, states increased WOB and SOB with exertion. normally independent at assisted living center and states feeling weaker and more fatigued than normal. states a few other residents currently ill. denies fever or chills. states some diarrhea and nausea. wet loose cough and breathing noted, pt states she always sounds wet , denies new wheezing.
--- NOTE | 2025-01-02 16:28 | ECG_ITS ---
[facility] Test Date: 2025-01-02 Pat Name: JHONATAN MONTOYA Department: Room: - Gender: Female [employer]: : 1955 Requested By: Order Number: [id number] Reading MD: MINERVA GERBER Measurements Intervals [place] Rate: 82 P: 52 TN: 138 QRS: 19 QRSD: 114 T: 52 QT: 380 QTc: 418 Interpretive Statements 1100 Sinus rhythm [address] depression 8102 Low QRS voltage in chest leads 9150 abnormal ECG Electronically Signed On 01-02-2025 18:04:38 EST by MINERVA GERBER
--- NOTE | 2025-01-02 16:51 | PC.NURSE ---
RT at bedside for breathing treatment at this time.
[2025-01-02] MEDS: IPRATROPIUM/ALBUTEROL SULFATE 3 ML AMPUL.NEB IH ×2 (16:52→22:49)
[2025-01-02] MEDS: CEFTRIAXONE 1,000 MG in 0.9 % SODIUM CHLORIDE 50 ML 100 MG IV (17:03)
[2025-01-02 17:13] LABS: Alanine Aminotransferase 16 U/L (14-59); Albumin Globulin Ratio 0.6; Albumin Level 2.6 g/dL (3.4-5.0); Alkaline Phosphatase 109 U/L (46-116); Aspartate Amino Transferase 10 U/L (15-37); BUN Creatinine Ratio 7.3; Bilirubin Total 0.4 mg/dL (0.2-1.0); Calcium 8.9 mg/dL (8.5-10.1); Carbon Dioxide 32.2 mmol/L (21.0-32.0); Chloride 103 mmol/L (98-107); Estimated GFR (African America 60 (>=60 mL/min/1.73m^2); Estimated GFR (Non-African Ame 49 (>=60 mL/min/1.73m^2); Globulin 4.3 g/dL; Glucose 109 mg/dL (74-106); Potassium 3.2 mmol/L (3.5-5.1); Sodium 140 mmol/L (136-145); Total Protein 6.9 g/dL (6.4-8.2)
[2025-01-02 17:19] LABS: Troponin I High Sensitivity 19.5 pg/mL (4.0-51.3)
[2025-01-02] MEDS: AZITHROMYCIN 500 MG in 0.9 % SODIUM CHLORIDE 250 ML 250 MG IV (17:41)
--- OUTSIDE RECORDS SUMMARY | 2025-01-02 18:49 | XMS_ITS | CCD ---
Author Organization [facility] Care Team Providers Care Pneumatic Jack Operator Name Role Phone Steph Collier Attending Provider Unavailable Chantel Rainey Primary Care Provider Unavailabl e Joana, Herberth Attending Provider Unavailable Unavailable Primary Care Provider Unavailabl e UNKNOWN, PHYSICIAN Referring Unavailable JOO BRAVO Attending Unavailable JOO BRAVO Admitting Unavailable UNKNOWN, PHYSICIAN Primary Care Unavailable Rena Hurd Unavailable Joana, Herberth Unavailable Gato Domingo Unavailable [phone] Steph Collier Attending Provider [phone] MD Gato Domingo Attending Provider MD Nicky Ohara Primary Care Provider Gilma Trent Unavailable JOANA, HERBERTH Attending Unavailable JOANA, HERBERTH Admitting Unavailable FAWWAD, MESSER H Primary Care Unavailable JOANA, HERBERTH Consulting Unavailable SAMSA ., BO Admitting Unavailable FAWWAD, MESSER H Primary Care Unavailable FAWWAD, MESSER H Consulting Unavailable BO MCKINNON Attending Unavailable BRITTANY GALDAMEZ Consulting Unavailable ISABEL ., DR SANTIAGO Admitting Unavailabl e KARASIK ., DR SANTIAGO Attending Unavailabl e KARASIK ., DR SANTIAGO Consulting Unavailabl e FAWWAD, MESSER H Primary Care Unavailable DERRY, DR BRITTANY Elizondo Consulting Unavailable MARTIREBBETH, DR STEPH Holland Consulting Unavailable KARASIK ., DR SANTIAGO Admitting Unavailabl e KARASIK ., DR SANTIAGO Attending Unavailabl e KARASIK ., DR SANTIAGO Consulting Unavailabl e FAWWAD, MESSER H Primary Care Unavailable JOANA, HERBERTH Admitting Unavailable JOANA, HERBERTH Attending Unavailable FAWWAD, MESSER H Primary Care Unavailable JOANA, HERBERTH Consulting Unavailable JOANA, HERBERTH Admitting Unavailable JOANA, HERBERTH Attending Unavailable FAWWAD, MESSER H Primary Care Unavailable JOANA, HERBERTH Consulting Unavailable FAWWAD, MESSER H Primary Care Unavailable FAWWAD, MESSER H Referring Unavailable SAMSA ., BO Attending Unavailable SAMSA ., BO Consulting Unavailable SAMSA ., BO Admitting Unavailable FAWWAD, MESSER H Primary Care Unavailable LONDONO, WINCHA Consulting Unavailable FAWWAD, MESSER H Admitting Unavailable FAWWAD, MESSER H Attending Unavailable FAWWAD, MESSER H Consulting Unavailable FAWWAD, MESSER H Admitting Unavailable FAWWAD, MESSER H Attending Unavailable FAWWAD, MESSER H Consulting Unavailable FAWWAD, MESSER H Primary Care Unavailable FAWWAD, MESSER H Primary Care Unavailable FAWWAD, MESSER H Admitting Unavailable FAWWAD, MESSER H Attending Unavailable FAWWAD, MESSER H Consulting Unavailable DR STEPH GRANADOS Consulting Unavailable FAWWAD, MESSER H Primary Care Unavailable FAWWAD, MESSER H Admitting Unavailable FAWWAD, MESSER H Attending Unavailable FAWWAD, MESSER H Consulting Unavailable Steph Collier Attending Provider [phone] Giedraitis MD, Andrius Vytautas Attending Unavailable Giedraitis MD, Andrius Vytautas Attending Unavailable Giedraitis MD, Andrius Vytautas Attending Unavailable Giedraitis MD, Andrius Vytautas Attending Unavailable Giedraitis MD, Andrius Vytautas Attending Unavailable Giedraitis MD, Andrius Vytautas Attending Unavailable Giedraitis MD, Andrius Vytautas Attending Unavailable Giedraitis MD, Andrius Vytautas Attending Unavailable Giedraitis MD, Andrius Vytautas Attending Unavailable Ariella Mathis DO Unavailable Tapan Zazueta MD Primary Care Provider [phone] Mary Ann BRANDT [facility] Unavailable MD Allan Lacey Attending Provider FAMILIA ReeseC [facility] er MAG BLOUNT Attending Unavailable MAG BLOUNT Attending Unavailable AIDA REESE Referring Unavailabl e MAG BLOUNT Attending Unavailable MAG BLOUNT Admitting Unavailable TAPAN ZAZUETA Primary Care Physician HETAL CHURCH Attending Unavailable OMBALLI, EMELIA Attending Unavailable OMBALLI, EMELIA Attending Unavailable SAMBO DAN Referring Unavailable OMBALLI, EMELIA Attending Unavailable OMBALLI, EMELIA Referring Unavailable RADHAGHULAM Referring Unavailable OMBALLI, EMELIA Admitting Unavailable OMBALLI, EMELIA Attending Unavailable OMQUINCY, EMELIA Referring Unavailable Deepthi DRAPER, Allan Boone Attending Provider Mary Ann PREPARER MAKING DEPARTMENT-C, [facility] er Allan Lacey Attending Unavailable Mary Ann [facility] Primary Care Unavaila Allan Fregoso Admitting Unavailable Allan Lacey Attending Unavailable Mary Ann [facility] Unavaila Allan Fregoso Admitting Unavailable RAMIN BOWERS Attending Unavailable RAMIN BOWERS Referring Unavailable RAMIN BOWERS Referring Unavailable JESSICA LAZO Attending Unavailable SHAIKH OHARA Attending Unavailable AIDA REESE Attending Unavailabl e REESE, AIDA Attending Unavailabl e AIDA REESE Attending Unavailabl e SHAIKH OHARA Attending Unavailable JESSICA LAZO Attending Unavailable KAYLENE LÓPEZ Attending Unavailable SHAIKH OHARA Attending Unavailable JAYNA GOODE Attending Unavailable AIDA REESE Referring Unavailabl e SHAIKH OHARA Attending Unavailable MARY ANN, AIDA Attending AIDA Huff Attending AIDA Huff Attending SHAIKH Radford Attending Unavailable SHAIKH OHARA Attending Unavailable SHAIKH OHARA Attending Unavailable Unavailable Unavailable Unavailable Allergies Allergy Classification Reported Allergen(s) Allergy Type Date of Onset Reaction(s) Facility (20 sources) fentaNYL; Translations: [fentaNYL] Drug Allergy 07-07-20 17 Hallucinations (finding) [facility] (1 source) linezolid; Translations: [LINEZOLID] Drug Allergy 03-17-20 20 [facility] (20 sources) Vancomycin; Translations: [VANCOMYCIN] Drug Allergy 03-17-20 Unknown [facility] (14 sources) DENIES METAL SENSITITIVITY Propensity to adverse reactions 03-14-20 24 Unknown, Unknown Reaction [facility] Medications Current Medications Medication Drug Class(es) Dates Sig (Normalized) Sig (Original) 30 ACTUAT fluticasone furoate 0.2 MG/ACTUAT / umeclidinium 0.0625 MG/ACTUAT / vilanterol 0.025 MG/ACTUAT Dry Powder Inhaler [Trelegy] (2 sources) take 1 puff(s) by inhalation once daily Trelegy Ellipta 200-62.5-25 MCG/INH 1 puff Inhalation Once a day Active albuterol 0.83 mg/ml inhalation solution (20 sources) beta2-Adrenergic Agonist Start: 10-15-2024 albuterol 0.083% Inh Meagan 3 mL 2.5 mg, 3 mL Start Date: 10/15/24 Status: Ordered Start: 09-05-2024 Albuterol Sulf ate 2.5 mg /3 mL (0.083 %) solution for nebulization Active 2.5 MG CNTNEBULIZ 2-4 TIMES PER DAY as needed for shortness of breath or wheezing September 04, 2024 11:00pm Start: 03-14-2024 take 1 puff(s) by in halation every four hours as needed for wheezing Albuterol Sulfate 90 mcg/actuation HFA aerosol inhaler Active 2 PUFF INHALATION Every 4 hours as needed for shortness of breath or wheezing March 13, 2024 11:00pm Start: 07-07-2017 take 1 puff(s) by in [...] EVERY 4-6 HOURS July 06, 2017 11:00pm albuterol (2.5 M G/3ML) 0.083% nebulizer solution Take 2.5 mg by nebulization every 6 (six) hours if needed for wheezing. Active take 2 puff(s) by in halation every four hours albuterol HFA 90 mcg/act inhaler Inhale 2 puffs every 4 (four) hours if needed for shortness of breath. Active take 1 puff(s) by in halation [...] daily Active baclofen 10 mg oral tablet (20 sources) gamma-Aminobutyric Acid-ergic Agonist Start: 4 End: 4 take 1 tablet by mouth in the morning, then take 1 tablet by mouth in the evening, then take 1 tablet by mouth at bedtime baclofen (Lioresal) 10 MG tablet Indications: Chronic bilateral low back pain without sciatica Take 1 tablet (10 mg) by mouth in the morning and 1 tablet (10 mg) in the evening and 1 tablet (10 mg) before bedtime. 90 tablet 2 07/17/2024 Active take 1 tablet by mouth every eig ht hours Baclofen 5 MG 1 tablet as needed Orally Three times a day Active cholecalciferol 0.025 mg oral capsule (10 sources) Vitamin D Start: 01-25-2024 End: 07-23-2024 take 1 capsule by mouth once daily Cholecalciferol (Vitamin D3) 25 mcg (1,000 unit) capsule Active 25 MCG PO Daily March 13, 2024 11:00pm doxycycline hyclate 100 mg oral capsule (4 sources) Tetracycline- class Drug Start: 11-18-2024 End: 11-28-2024 take 1 capsule by mouth in the morning doxycycline (Vibramycin) 100 MG capsule Take 100 mg by mouth in the morning and 100 mg before bedtime. 11/18/2024 11/28/2024 Active Start: 06-10-2024 take 1 tablet by bessie th once daily doxycycline (Vibra-Tabs) 100 MG tablet Take 100 mg by mouth Daily 06/10/2024 Active ferrous sulfate 325 mg oral tablet (20 sources) Start: 10-15-2024 take 1 tablet by mouth once daily ferrous sulfate 325 mg Tab 325 mg = 1 tab(s), Oral, Daily Start Date: 10/15/24 Status: Ordered Start: 03-14-2024 Ferrous Sulfat e 325 mg (65 mg iron) tablet Active 325 MG PO Every 48 hours March 13, 2024 11:00pm take 1 tablet by bessie th every other day Iron 325 (65 Fe) MG 1 tablet Orally every other day Active fluconazole 150 mg oral tablet (1 source) Azole Antifungal Start: 09-10-2024 End: 09-10-2024 take 1 tablet by mouth once fluconazole (Diflucan) 150 MG tablet Indications: Vaginal guero Take 1 tablet (150 mg) by mouth 1 (one) time for 1 dose 1 tablet 09/10/2024 09/10/2024 Active fluticasone propionate 0.05 mg/actuat metered dose nasal spray (1 source) Corticosteroid take 2 spray(s) nasal route once daily Flonase Allergy Relief 50 MCG/ACT 2 spray in each nostril Nasally Once a day Active fluticasone furoate 0.1 MG/ACTUAT / umeclidinium 0.0625 MG/ACTUAT / vilanterol 0.025 MG/ACTUAT Dry Powder Inhaler (2 sources) Anticholinergic, Corticosteroid, beta2-Adrenergic Agonist Start: 10-15-2024 fluticasone/umecli dinium/vilanterol 200 mcg-62.5 mcg-25 mcg/inh inhalation powder inh, Inhalation, Daily Start Date: 10/15/24 Status: Ordered Fluticasone-Umecli din-Vilant (Trelegy Ellipta) 200-62.5-25 MCG/ACT aerosol powder (20 sources) take 1 puff(s) by mouth in the morning Fluticasone-Umecli din-Vilant (Trelegy Ellipta) 200-62.5-25 MCG/ACT aerosol powder Take 1 puff by mouth in the morning. Active Fluticasone-Umecli din-Vilanter (7 sources) Start: 03-14-2024 Fluticasone-Umecli din-Vilanter (Trelegy Ellipta) 200-62.5-25 mcg blister with device Active 1 INH INHALATION Daily March 13, 2024 11:00pm Start: 03-14-2024 Fluticasone-Um eclidin-Vilanter (Trelegy Ellipta) 200-62.5-25 mcg blister with device Active 1 INH INHALATION Daily March 14, 2024 12:00am Start: 12-08-2022 End: 03-14-2024 Txfzxeykbgq-Sgiwgojuq-Eewwkb er (Trelegy Ellipta) 200-62.5-25 mcg blister with device Discontinued 1 INH INHALATION As Directed December 08, 2022 12:00am March 14, 2024 9:40am Start: 12-08-2022 End: 03-14-2024 Dtlgwwmrswc-Jazovqedy-Mjjclu er (Trelegy Ellipta) 200-62.5-25 mcg blister with device Discontinued 1 INH INHALATION As Directed December 08, 2022 1:00am March 14, 2024 10:40am Start: 12-08-2022 Fluticasone-Um eclidin-Vilanter (Trelegy Ellipta) 200-62.5-25 mcg blister with device Active 1 INH INHALATION As Directed December 08, 2022 12:00am furosemide 20 mg oral tablet (20 sources) Loop Diuretic Start: 04-10-2024 End: 05-29-2024 take 1 tablet by mouth once daily furosemide (Lasix) 20 MG tablet Take 20 mg by mouth Daily 04/10/2024 Active take 1 tablet by bessie th every twenty-four hours Furosemide 20 MG 1 tablet Orally Once a day Active gabapentin 300 mg oral capsule (1 source) Anti-epileptic Agent take 1 capsule by mouth every twelve hours Gabapentin 300 MG 1 capsule Orally twice a day Active 12 hr guaiFENesin 600 mg extended release oral tablet (20 sources) Start: take 1 tablet by mouth every twelve hours guaiFENesin 600 mg ER Tab 600 mg = 1 tab(s), Oral, q12hr Start Date: 10/15/24 Status: Ordered take 1 tablet by bessie th in the morning, then take 1 tablet by mouth every twelve hours at bedtime guaiFENesin (Mucinex) 600 MG 12 hr table t Take 1,200 mg by mouth in the morning and 1,200 mg before bedtime. Do not crush, chew, or split. . Active take 1 tablet by bessie every twelve hours guaiFENesin ER 600 MG 1 tablet as needed Orally every 12 hrs Not-Taking Iron (2 sources) take 1 tablet by mouth every other day Iron 325 (65 Fe) MG 1 tablet Orally every other day Active latanoprost 0.05 mg/ml ophthalmic solution (20 sources) Prostaglandin Analog Start: 10-15-2024 Xalatan 0.005% Soln-Opth 1 drop(s) Start Date: 10/15/24 Status: Ordered Start: 09-05-2024 take 1 drop(s) into the eye(s) once daily at bedtime Latanoprost 0.005 % drops Active 1 DROPS EYE-BOTH Daily at bedtime September 04, 2024 11:00pm Start: 09-05-2024 take 1 drop(s) into the eye(s) once daily at bedtime Latanoprost Active 1 DROPS EYE-BOTH Daily at bedtime September 05, 2024 12:00am Start: 06-18-2024 take 1 drop(s) into the eye(s) at bedtime latanoprost (Xalatan) 0.005 % ophthalmic solution INSTILL 1 DROP INTO EACH EYE AT BEDTIME 06/18/2024 Active levocetirizine dihydrochloride 5 mg oral tablet (1 source) Histamine-1 Receptor Antagonist take 1 tablet by mouth every twenty-four hours Levocetirizine Dihydrochloride 5 MG 1 tablet in the evening Orally Once a day Active levoFLOXacin 750 mg oral tablet (1 source) Quinolone Antimicrobial Start: 2023 take 1 tablet by mouth once daily levoFLOXacin (Levaquin) 750 MG tablet Take 750 mg by mouth Daily 06/10/2024 Active magnesium oxide 400 mg oral tablet (20 sources) Start: 2021 End: 2023 take 1 tablet by mouth once daily MAGnesium-Oxide 400 (240 Mg) MG tablet Take 400 mg by mouth Daily 04/10/2024 Active montelukast 10 mg oral tablet (20 sources) Leukotriene Receptor Antagonist Start: 2023 take 1 tablet by mouth once daily Montelukast (Singulair) 10 mg tablet Active 10 MG PO Daily March 13, 2024 11:00pm Multi For Her 50+ - (11 sources) Multi For Her 50 + - as directed Orally ONCE A DAY Active Multi For Her 50 + - as directed Orally Active Multi Vitamins oral tablet (2 sources) Start: 10-15-2024 Multi Vitamins oral tablet Oral, Daily, Refill(s) 0 Start Date: 10/15/24 Status: Ordered Multiple Vitamin (multivitamin) tablet (20 sources) take 1 tablet by mouth in the morning Multiple Vitamin (multivitamin) tablet Take 1 tablet by mouth in the morning. Active omeprazole 20 mg delayed release oral capsule (20 sources) Proton Pump Inhibitor Start: 12-02-2024 take 1 capsule by mouth every twelve hours omeprazole (PriLOSEC) [address] capsule Indications: Gastroesophageal reflux disease without esophagitis TAKE 1 CAPSULE BY MOUTH EVERY 12 HOURS 180 capsule 12/02/2024 Active Start: 10-15-2024 omeprazole 20 mg Cap-DR 20 mg = 1 cap(s) Start Date: 10/15/24 Status: Ordered Start: 09-03-2024 End: 12-02-2024 take 1 capsule by mouth once omeprazole (PriLOSEC) [address] capsule Indications: Gastroesophageal reflux disease without esophagitis Take 1 capsule (20 mg) by mouth every 12 (twelve) hours 180 capsule 09/03/2024 12/02/2024 Discontinued Start: 06-03-2024 End: 09-03-2024 take 1 capsule by mouth every twelve hours omeprazole (PriLOSEC) [address] capsule Indications: Gastroesophageal reflux disease without esophagitis TAKE 1 CAPSULE BY MOUTH EVERY 12 HOURS 180 capsule 06/03/2024 09/03/2024 Discontinued (Reorder) Start: 03-14-2024 take 1 capsule by mo ut twice daily Omeprazole 20 mg capsule,delayed release(DR/EC) Active 20 MG PO Twice daily March 13, 2024 11:00pm Start: 07-07-2017 End: 03-14-2024 take 1 tablet by mouth once daily Omeprazole 20 mg Tablet,Delayed Release (Dr/Ec) Discontinued 20 MG PO Daily July 06, 2017 11:00pm March 14, 2024 9:41am take 1 capsule by mo [facility] every twelve hours Omeprazole 20 MG 1 CAPSULE Orally TWICE A DAY Active take 1 capsule by mo ut once daily Omeprazole 20 MG 1 capsule [...] Active PARoxetine hydrochloride 30 mg oral tablet (20 sources) Serotonin Reuptake Inhibitor Start: take 1 tablet by mouth in the morning PARoxetine (Paxil) 30 MG tablet Indications: Moderate episode of recurrent major depressive disorder (CMS/HCC) Take 1 tablet (30 mg) by mouth in the morning. 90 tablet 06/04/2024 Active Start: 07-07-2017 End: 03-14-2024 take 1 tablet by mouth once daily Paroxetine Hcl (Paxil) 20 mg Tablet Discontinued 20 MG PO Daily July 06, 2017 11:00pm March 14, 2024 9:39am PARoxetine (PAXI L) 40 mg tablet Take [...] Active pramipexole dihydrochloride 0.25 mg oral tablet (20 sources) Nonergot Dopamine Agonist Start: 10-15-2024 pramipexole 0.25 mg Tab mg tab(s), Oral Start Date: 10/15/24 Status: Ordered Start: 03-14-2024 End: 12-01-2024 pramipexole (Mirapex) 0.25 M G tablet Indications: RLS (restless legs syndrome) Take 1 tablet (0.25 mg) by mouth as needed at bedtime (Restless leg) 90 tablet 1 06/04/2024 Active take 1 tablet by bessie th every twenty-four hours Pramipexole Dihydrochloride 0.25 MG 1 tablet Orally Once a day Active predniSONE 10 mg oral tablet (17 sources) Start: 11-19-2024 End: 12-20-2024 predniSONE (Deltasone) 10 MG tablet Take 10 mg by mouth See administration instructions 11/19/2024 12/20/2024 Active Start: 11-12-2024 End: 11-17-2024 take 3 tablets by mouth once daily predniSONE (Deltasone) 20 MG tablet Indications: Chronic obstructive pulmonary disease with acute lower respiratory infection (CMS/HCC) Take 3 tablets (60 mg) by mouth Daily for 5 days 15 tablet 11/12/2024 11/17/2024 Active Start: 06-10-2024 take 1 tablet by bessie th once daily predniSONE (Deltasone) 20 MG tablet Take 20 mg by mouth Daily 06/10/2024 Active pregabalin 75 mg oral capsule (20 sources) Start: 03-14-2024 End: 12-09-2024 take 1 capsule by mouth twice daily at bedtime pregabalin (Lyrica) 75 MG capsule Indications: Restless leg syndrome TAKE 1 CAPSULE BY MOUTH TWICE DAILY (MORNING AND BEDTIME) 60 capsule 12/09/2024 Active Sodium Chloride (20 sources) Start: 10-15-2024 sodium chlorid e Start Date: 10/15/24 Status: Ordered Start: 09-05-2024 Sodium Chlorid e 0.9 % solution for nebulization Active ML INHALATION September 04, 2024 11:00pm Start: 09-05-2024 Sodium Chlorid e Active ML INHALATION September 05, 2024 12:00am Start: 04-22-2024 sodium chlorid e 0.9 % nebulizer solution Take 3 mL by nebulization in the morning and 3 mL before bedtime. 04/22/2024 Active solifenacin succinate 10 mg oral tablet (20 sources) Cholinergic Muscarinic Antagonist Start: 10-14-2024 take 1 tablet by mouth once daily solifenacin (VESIcare) 10 MG tablet Indications: Urge incontinence Take 1 tablet by mouth once daily 90 tablet 10/14/2024 Active Start: 07-17-2024 take 1 tablet by bessie th once daily solifenacin (VESIcare) 10 MG tablet Indications: Urge incontinence Take 1 tablet (10 mg) by mouth Daily 90 tablet 07/17/2024 Active Start: 02-19-2024 End: 10-14-2024 take 1 tablet by mouth once daily Solifenacin 10 mg tablet Active 10 MG PO Daily March 13, 2024 11:00pm take 1 tablet by bessie th every twenty-four hours VESIcare 10 MG 1 tablet Orally Once a day Active traMADol hydrochloride 50 mg oral tablet (20 sources) Opioid Agonist Start: 10-15-2024 traMADOL 50 mg Tab 50 mg = 1 tab(s), Oral Start Date: 10/15/24 Status: Ordered Start: 01-23-2024 take 1 tablet by bessie th every twelve hours traMADol (Ultram) 50 MG tablet Take 50 mg by mouth every 12 (twelve) hours 01/23/2024 Active traZODone hydrochloride 100 mg oral tablet (20 sources) Serotonin Reuptake Inhibitor Start: 10-15-2024 End: 12-16-2024 take 1 tablet by mouth at bedtime traZODone (Desyrel) 100 MG tablet Indications: Moderate episode of recurrent major depressive disorder (CMS/HCC) TAKE 1 TABLET BY MOUTH AT BEDTIME 30 tablet 12/16/2024 Active Start: 07-17-2024 take 1 tablet by bessie th at bedtime traZODone (Desyrel) 100 MG tablet Indications: Moderate episode of recurrent major depressive disorder (HCC) (CMS/HCC) Take 1 tablet (100 mg) by mouth at bedtime 30 tablet 2 07/17/2024 Active Start: 03-14-2024 End: 10-15-2024 take 1 tablet by mouth once daily at bedtime Trazodone 100 mg tablet Active 100 MG PO Daily at bedtime March 13, 2024 11:00pm Start: 07-07-2017 End: 03-14-2024 take 1 tablet by mouth at bedtime Trazodone 50 mg Tablet Discontinued 50 MG PO Bedtime July 06, 2017 11:00pm March 14, 2024 9:38am Comment on above: Take 50 mg by mouth. Trelegy Ellipta 200-62.5-25 MCG/INH (5 sources) take 1 puff(s) by inhalation once daily Trelegy Ellipta 200-62.5-25 MCG/INH 1 puff Inhalation Once a day Active valACYclovir 1000 mg oral tablet (2 sources) Herpesvirus Nucleoside Analog DNA Polymerase Inhibitor, Herpes Simplex Virus Nucleoside Analog DNA Polymerase Inhibitor, Herpes Zoster Virus Nucleoside Analog DNA Polymerase Inhibitor Start: 11-12-19 End: 11-19-19 take 1 tablet by mouth in the morning valACYclovir (Valtrex) 1 g tablet Indications: Primary HSV infection of mouth Take 1 tablet (1,000 mg) by mouth in the morning and 1 tablet (1,000 mg) before bedtime. Do all this for 7 days. 14 tablet 11/12/2024 11/19/2024 Active Vitamin D 25 MCG (1000 UT) [...] in structed every 6 hours as needed. Albuterol Sulfate 90 mcg/actuation Hfa Aerosol Inhaler (1 source) Start: 07-07-2017 End: 03-14-2024 take 1 puff(s) by inhalation every four to six hours as needed for wheezing Albuterol Sulfate 90 mcg/actuation Hfa Aerosol Inhaler Discontinued 1 PUFF INHALATION EVERY 4-6 HOURS as needed for Shortness Of Breath Or Wheezing July 06, 2017 11:00pm March 14, 2024 9:40am amLODIPine 2.5 mg oral tablet (14 sources) Dihydropyridine Calcium Channel Edwin Start: 07-07-2017 End: 03-14-2024 take 1 tablet by mouth twice daily Amlodipine (Norvasc) 2.5 mg Tablet Discontinued 2.5 MG PO Twice daily July 06, 2017 11:00pm March 14, 2024 9:40am take 1 tablet by bessie th every twenty-four hours amLODIPine Besylate 5 MG 1 tablet Orally Once a day Active amLODIPine (NORV ASC) 10 mg tablet Take 10 mg by mouth. 0 Active Comment on above: Take 10 mg by mouth. clonazePAM 0.5 mg oral tablet (6 sources) Benzodiazepine Start: End: take 1 tablet by mouth once daily Clonazepam 0.5 mg Tablet Discontinued 0.5 MG PO Daily July 06, 2017 11:00pm March 14, 2024 9:40am Comment on above: Take 0.5 mg by mouth . cyclobenzaprine hydrochloride 10 mg oral tablet (6 sources) Muscle Relaxant Start: End: take 1 tablet by mouth once daily Cyclobenzaprine 10 mg Tablet Discontinued 10 MG PO Daily July 06, 2017 11:00pm March 14, 2024 9:40am Comment on above: Take 10 mg by mouth. famotidine 40 mg oral tablet (6 sources) Histamine-2 Receptor Antagonist Start: End: take 1 tablet by mouth at bedtime Famotidine (Pepcid) 40 mg Tablet Discontinued 40 MG PO Bedtime July 06, 2017 11:00pm December 08, 2022 7:02am famotidine (PEPC ID) 20 mg tablet Take 20 mg by mouth. 0 Active Comment on above: Take 20 mg by mouth. hydroCHLOROthiazide 25 mg oral tablet (12 sources) Thiazide Diuretic Start: 2022 End: 2023 take 1 tablet by mouth once daily Hydrochlorothiazide 25 mg tablet Discontinued 25 MG PO Daily December 08, 2022 12:00am March 14, 2024 9:40am hydroCHLOROthiazide 25 mg / spironolactone 25 mg oral tablet (6 sources) Thiazide Diuretic, Aldosterone Antagonist Start: 2018 take 1 tablet by mouth once spironolactone-hctz 25/25 (ALDACTAZIDE) 25-25 mg per tablet Take 25 mg by mouth. 0 01/03/2019 Active Start: 09-15-2017 End: 12-08-2022 Spironolacton-Hydrochlorothi az 0 tablet Discontinued 1 TAB PO Daily September 15, 2017 12:00am December 08, 2022 7:04am Comment on above: Take 25 mg by mouth. 200 actuat ipratropium bromide 0.017 mg/actuat metered dose inhaler (9 sources) Anticholinergic Start: 07-07-20 End: 03-14-20 take 1 puff(s) by inhalation twice daily Ipratropium [place] (Atrovent Hfa) 17 mcg/actuation Hfa Aerosol Inhaler Discontinued 2 PUFF INHALATION Twice daily July 06, 2017 11:00pm March 14, 2024 9:40am take 2 puff(s) by in halation four times daily Atrovent HFA 17 MCG/ACT 2 puffs Inhalation Four times a day Active lisinopril 40 mg oral tablet (5 sources) Angiotensin Converting Enzyme Inhibitor Start: 07-07-2017 End: 12-08-2022 take 0.5 tablet by mouth twice daily Lisinopril 40 mg Tablet Discontinued 0.5 TAB PO Twice daily July 06, 2017 11:00pm December 08, 2022 7:04am loratadine 10 mg oral tablet (5 sources) Start: 07-07-2017 End: 03-14-2024 take 1 tablet by mouth once daily Loratadine 10 mg Tablet Discontinued 10 MG PO Daily July 06, 2017 11:00pm March 14, 2024 9:41am losartan potassium 50 mg oral tablet (9 sources) Angiotensin 2 Receptor Edwin Start: 04-10-2024 End: 09-05-2024 take 1 tablet by mouth twice daily Losartan 50 mg tablet Discontinued 50 MG PO Twice daily April 10, 2024 3:50pm September 05, 2024 12:09pm Start: 04-10-2024 End: 04-10-2024 take 1 tablet by mouth once daily Losartan 50 mg tablet Discontinued 50 MG PO Daily April 09, 2024 11:00pm April 10, 2024 3:49pm take 1 tablet by bessie th in the morning, then take 1 tablet by mouth twice daily in the evening Losartan Potassium 50 MG 1 tablet AM / 1 tablet PM Orally bid for 90 days Active Magnesium (4 sources) Start: 12-08-2022 End: 03-14-2024 take 1 tablet by mouth once daily Magnesium 200 mg Tablet Discontinued 200 MG PO Daily December 08, 2022 12:00am March 14, 2024 9:34am Start: 12-08-2022 End: 03-14-2024 take 200 mg by mouth once daily Magnesium Discontinued 200 MG PO Daily December 08, 2022 1:00am March 14, 2024 10:34am Start: 12-08-2022 take 200 mg by mouth once daily Magnesium Active 200 MG PO Daily December 08, 2022 12:00am methylPREDNISolone (18 sources) Corticosteroid Start: 07-18-2018 Depo-Medrol 40 mg Jul, 1 mL Start: 01-31-2018 Depo-Medrol 40 mg Jan, 1 mL potassium 99 mg extended release oral tablet (4 sources) Start: 12-08-2022 End: 03-14-2024 take 1 tablet by mouth twice daily Potassium 99 mg Tablet Discontinued 99 MG PO Twice daily December 08, 2022 12:00am March 14, 2024 9:41am Problems Active Problems Problem Classification Problem Date Documented Date Episodic/Chronic Asthma (20 sources) Asthma; Translations: [Unspecified asthma, uncomplicated] Onset: 3 10-04-2023 Chronic Cancer of colon (20 sources) History of malignant neoplasm of colon; Translations: [History of large intestine malignacy] Onset: 2 Resolved: 2 Episodic Cancer of rectum and anus (20 sources) Malignant neoplasm of rectosigmoid junction; Translations: [Malignant neoplasm of rectosigmoid junction] Onset: 3 10-04-2023 Chronic Cancer of rectum and anus (4 sources) History of malignant neoplasm of anus; Translations: [Personal history of other malignant neoplasm of rectum, rectosigmoid junction, and anus] Episodic Chronic kidney disease (20 sources) Chronic kidney disease stage 3; Translations: [Chronic kidney disease, stage 3 (moderate)] Onset: 3 03-14-2024 Chronic Chronic obstructive pulmonary disease and bronchiectasis (20 sources) Chronic obstructive lung disease; Translations: [Chronic obstructive pulmonary disease, unspecified] Onset: 3 03-14-2024 Chronic Comment on above: O2@3L continuous Complication of device; implant or graft (11 sources) Prosthetic joint loosening; Translations: [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, initial encounter] Episodic Congestive heart failure; nonhypertensive (20 sources) Chronic heart failure co-occurrent with normal ejection fraction; Translations: [Chronic diastolic (congestive) heart failure] Onset: 3 10-04-2023 Chronic Deficiency and other anemia (11 sources) Anemia of renal disease; Translations: [Anemia in chronic kidney disease] Chronic Diseases of white blood cells (20 sources) Leukocytosis; Translations: [Elevated white blood cell count, unspecified] Onset: 4 12-28-2023 Chronic Disorders of lipid metabolism (20 sources) Hyperlipidemia; Translations: [Hyperlipidemia, unspecified] Onset: 3 10-04-2023 Chronic Esophageal disorders (20 sources) Gastroesophageal reflux disease; Translations: [Gastro-esophageal reflux disease without esophagitis] Onset: 3 10-04-2023 Chronic Essential hypertension (20 sources) Hypertensive disorder; Translations: [Essential (primary) hypertension] Onset: 4 10-04-2023 Chronic Fluid and electrolyte disorders (10 sources) Hypokalemia; Translations: [Hypokalemia] Onset: 2 Resolved: 2 Episodic Gastrointestinal hemorrhage (11 sources) Hemorrhage of rectum and anus; Translations: [Hemorrhage of rectum and anus] Episodic Genitourinary symptoms and ill-defined conditions (20 sources) Urge incontinence of urine; Translations: [Urge incontinence] Onset: 3 10-04-2023 Chronic Hypertension with complications and secondary hypertension (20 sources) Chronic kidney disease due to hypertension; Translations: [Hypertensive chronic kidney disease with stage 1 through stage 4 chronic kidney disease, or unspecified chronic kidney disease] Onset: 2 Resolved: 2 Chronic Mood disorders (20 sources) Depressive disorder; Translations: [Depression] Onset: 3 10-04-2023 Chronic Mycoses (1 source) Candidiasis of vagina; Translations: [Vaginal guero] 09-10-2024 Episodic Neoplasms of unspecified nature or uncertain behavior (20 sources) 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; Translations: [Neoplasm of uncertain behavior of other specified sites] Onset: 4 10-07-2024 Episodic Nutritional deficiencies (20 sources) Vitamin D deficiency; Translations: [Vitamin D deficiency, unspecified] Onset: 3 03-14-2024 Chronic Osteoarthritis (20 sources) Arthritis of left hip; Translations: [Unilateral primary osteoarthritis, left hip] Onset: 8 10-04-2023 Chronic Other aftercare (11 sources) Patient encounter status; Translations: [Aftercare following joint replacement surgery] Chronic Other and unspecified benign neoplasm (2 sources) Nevus lipomatosus cutaneous superficialis; Translations: [Benign lipomatous neoplasm of skin and subcutaneous tissue of unspecified sites] 12-13-2024 Episodic Other connective tissue disease (11 sources) History of repair of hip joint; Translations: [Presence of left artificial hip joint] Chronic Other connective tissue disease (20 sources) History of total knee arthroplasty; Translations: [Presence of right artificial knee joint] Onset: 4 12-05-2023 Chronic Other connective tissue disease (2 sources) History of right total knee replacement; Translations: [Presence of right artificial knee joint] 12-15-2024 Chronic Other diseases of kidney and ureters (11 sources) Secondary hyperparathyroidism; Translations: [Secondary hyperparathyroidism of renal origin] Chronic Other diseases of kidney and ureters (5 sources) Secondary hyperparathyroidism of renal origin; Translations: [SEC HYPERPARATHYROIDISM RENAL ORIGN] Onset: 2 Resolved: 2 Chronic Other gastrointestinal disorders (2 sources) Diarrhea; Translations: [Diarrhea, unspecified] 08-19-2024 Episodic Other hereditary and degenerative nervous system conditions (20 sources) Restless legs; Translations: [Restless legs syndrome] Onset: 3 10-04-2023 Chronic Other nervous system disorders (20 sources) Chronic pain; Translations: [Other chronic pain] Onset: 4 12-05-2023 Chronic Other nervous system disorders (20 sources) Critical illness myopathy; 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] Onset: 3 12-05-2023 Chronic Other non-epithelial cancer of skin (4 sources) Squamous cell carcinoma of skin of trunk; Translations: [Squamous cell carcinoma of skin of other part of trunk] 12-13-2024 Episodic Other non-traumatic joint disorders (20 sources) Knee pain; Translations: [Pain in right knee] Episodic Other non-traumatic joint disorders (1 source) Pain in right hip; Translations: [PAIN IN RIGHT HIP] Onset: 3 Episodic Other non-traumatic joint disorders (2 sources) Pain in right knee; Translations: [Pain in joint, lower leg] 12-15-2024 Episodic Other nutritional; endocrine; and metabolic disorders (11 sources) Body mass index 30+ - obesity; Translations: [Body mass index (BMI) 36.0-36.9, adult] Chronic Other nutritional; endocrine; and metabolic disorders (10 sources) Hypomagnesemia; Translations: [Hypomagnesemia] 03-14-2024 Chronic Other nutritional; endocrine; and metabolic disorders (7 sources) Hypomagnesemia; Translations: [Disorders of magnesium metabolism] Onset: 3 Chronic Other nutritional; endocrine; and metabolic disorders (20 sources) Body mass index 40+ - severely obese; Translations: [Morbid (severe) obesity due to excess calories] Onset: 3 10-04-2023 Chronic Other nutritional; endocrine; and metabolic disorders (5 sources) Hyperuricemia without signs of inflammatory arthritis and tophaceous disease; Translations: [HU W/O SIGNS IA AND TOPHACEOUS DZ] Onset: 2 Resolved: 2 Episodic Other skin disorders (2 sources) Seborrheic keratosis; Translations: [Other seborrheic keratosis] 12-18-2024 Episodic Other skin disorders (2 sources) Lentiginosis; Translations: [Other melanin hyperpigmentation] 12-17-2024 Episodic Other upper respiratory infections (20 sources) Chronic sinusitis; Translations: [Chronic sinusitis, unspecified] Onset: 4 12-05-2023 Chronic Pulmonary heart disease (20 sources) Secondary pulmonary hypertension; Translations: [Other secondary pulmonary hypertension] Onset: 3 12-05-2023 Chronic Respiratory failure; insufficiency; arrest (adult) (20 sources) Chronic hypoxemic respiratory failure; Translations: [Chronic respiratory failure with hypoxia] Onset: 4 12-28-2023 Chronic Spondylosis; intervertebral disc disorders; other back problems (20 sources) Sacroiliitis, not elsewhere classified; Translations: [Herniation of nucleus pulposus of lumbar intervertebral disc] Onset: 8 12-05-2023 Chronic Unclassified (4 sources) CONTACT W/AND (SUSP) EXPOS COVID-19; Translations: [CONTACT W/AND (SUSP) EXPOS COVID-19] Onset: 2 Unclassified (4 sources) CHRN KIDNEY DISEASE STG 3 UNSP; Translations: [CHRN KIDNEY DISEASE STG 3 UNSP] Onset: 2 Unclassified (3 sources) ACUTE COUGH; Translations: [ACUTE COUGH] Onset: 3 Unclassified (20 sources) Patient on antidepressant monitoring plan Onset: 4 07-17-2024 Unclassified (2 sources) Arthropathy of right knee joint 10-15-2024 Unclassified (2 sources) Displacement of lumbar intervertebral disc 10-15-2024 Unclassified (2 sources) Malignant colorectal neoplasm 10-15-2024 Viral infection (19 sources) COVID-19; Translations: [Other specified viral infection] Onset: 5 03-14-2024 Episodic Viral infection (1 source) COVID-19; Translations: [COVID-19] Onset: 3 Past or Other Problems Problem Classification Problem Date Documented Da te Episodic/Chronic Acute and unspecified renal failure (20 sources) Acute renal failure syndrome; Translations: [Acute kidney failure, unspecified] Onset: 12-28-2023 12-28-2023 Episodic Cardiac dysrhythmias (20 sources) Atrial fibrillation; Translations: [Unspecified atrial fibrillation] Onset: 12-05-2023 Resolved: 12-28-2023 12-28-2023 Chronic Chronic kidney disease (11 sources) Chronic kidney disease; Translations: [Chronic kidney disease, stage III (moderate)] Onset: 11-17-2021 Resolved: 11-17-2021 Deficiency and other anemia (20 sources) Iron deficiency anemia; Translations: [Iron deficiency anemia, unspecified] Onset: 10-04-2023 10-04-2023 Episodic Immunizations and screening for infectious disease (2 sources) Contact with and (suspected) exposure to other viral communicable diseases; Translations: [Encounter for screening for human papillomavirus (HPV)] Onset: 08-30-2021 Resolved: 08-30-2021 Episodic Malaise and fatigue (20 sources) Malaise; Translations: [Other malaise] Onset: 12-05-2023 12-05-2023 Episodic Mood disorders (20 sources) Mood disorders Onset: 11-02-2023 11-02-2023 Other aftercare (20 sources) Post-discharge follow-up; Translations: [Encounter for follow-up examination after completed treatment for conditions other than malignant neoplasm] Onset: 12-05-2023 12-05-2023 Episodic Other bone disease and musculoskeletal deformities (1 source) Other specified disorders of bone density and structure, right thigh; Translations: [OTH D/O BONE DEN STRUCT RT THIGH] Onset: 12-19-2022 Episodic Other infections; including parasitic (20 sources) Personal history of other infectious and parasitic diseases; Translations: [History of COVID-19] Onset: 05-08-2023 12-05-2023 Episodic Other injuries and conditions due to external causes (20 sources) At moderate risk for fall; Translations: [History of falling] Onset: 10-04-2023 10-04-2023 Episodic Other lower respiratory disease (4 sources) Respiratory disorder, unspecified; Translations: [RESPIRATORY DISORDER UNSPECIFIED] Onset: 06-08-2022 Episodic Other lower respiratory disease (20 sources) Pneumonitis; Translations: [Other disorders of lung] Onset: 12-05-2023 12-05-2023 Episodic Other lower respiratory disease (2 sources) Solitary pulmonary nodule; Translations: [Solitary pulmonary nodule] Onset: 06-25-2024 Episodic Other non-traumatic joint disorders (18 sources) Pain in right hip joint; Translations: [Pain in right hip] Onset: 10-04-2023 10-04-2023 Episodic Other non-traumatic joint disorders (20 sources) Hip pain; Translations: [Pain in left hip] Onset: 10-04-2023 10-04-2023 Episodic Other nutritional; endocrine; and metabolic disorders (20 sources) Hyperuricemia; Translations: [Hyperuricemia without signs of inflammatory arthritis and tophaceous disease] Onset: 12-05-2023 12-05-2023 Episodic Other screening for suspected conditions (not mental disorders or infectious disease) (20 sources) Encounter for screening mammogram for malignant neoplasm of breast; Translations: [Encounter for screening for malignant neoplasm of cervix] Onset: 11-11-2022 Episodic Other upper respiratory disease (2 sources) Other specified diseases of upper respiratory tract; Translations: [Other specified diseases of upper respiratory tract] Onset: 07-11-2024 Episodic Other upper respiratory infections (5 sources) Acute upper respiratory infection, unspecified; Translations: [Viral URI J06.9] Onset: 08-30-2021 Resolved: 08-30-2021 Episodic Otitis media and related conditions (20 sources) Acute suppurative otitis media without spontaneous rupture of ear drum; Translations: [Acute suppurative otitis media without spontaneous rupture of ear drum, bilateral] Onset: 10-04-2023 10-04-2023 Episodic Pneumonia (except that caused by tuberculosis or sexually transmitted disease) (20 sources) Pneumonia, unspecified organism; Translations: [Pneumonia, organism unspecified] Onset: 02-15-2024 03-14-2024 Episodic Residual codes; unclassified (1 source) Asymptomatic menopausal state; Translations: [ASYMPTOMATIC MENOPAUSAL STATE] Onset: 12-19-2022 Episodic Residual codes; unclassified (20 sources) Postmenopausal state; Translations: [Asymptomatic menopausal state] Onset: 10-04-2023 10-04-2023 Episodic Screening and history of mental health and substance abuse codes (20 sources) Depression screening positive; Translations: [Encounter for screening for depression] Onset: 10-04-2023 10-04-2023 Episodic Spondylosis; intervertebral disc disorders; other back problems (20 sources) Spinal stenosis of lumbar region; Translations: [Spinal stenosis, lumbar region without neurogenic claudication] Onset: 03-24-2023 Episodic Unclassified (1 source) CONTACT W/AND (SUSP) EXPOS COVID-19; Translations: [CONTACT W/AND (SUSP) EXPOS COVID-19] Onset: 04-04-2023 Unclassified (1 source) ACUTE COUGH; Translations: [ACUTE COUGH] Onset: 02-22-2023 Unclassified (1 source) CHRN KIDNEY DISEASE STG 3 UNSP; Translations: [CHRN KIDNEY DISEASE STG 3 UNSP] Onset: 08-19-2022 Results Test Name Value Interpretation Reference Range Facility XR Hip - right 3 [facility] Imaging Result: AP and Lateral right hip No acute fracture Mild SI joint arthritic changes Pt has severe arthritis to right hip joint with subchondral cyst and sclerosis to femoral head and acetabulum. Stable hardware left hip on AP view Impression: Severe right hip arthritis. [facility] Radiology Study observation (narrative) [facility] XR Knee - right 1 or 2 Views on 12-17-2024 Imaging Result: AP and Lateral of right knee: Surgical position and alignment of prosthetic components without evidence of loosening or wear to femora, tibial or patellar components, The alignment appears to be anatomic. No evidence of accelerated or asymmetric wear to tibial tray or patella button. No evidence of fracture or dislocation. Impression: Unremarkable right total knee arthroplasty [facility] Radiology Study observation (narrative) [facility] [place] Panel Informationon 12-13 Complexity: simple Destruction method: cryotherapy Informed consent: discussed and consent obtained Informed consent comment: The risks of the procedure were discussed, including, but not limited to risks of scarring, darker or etl lead pigmentary changes, recurrence, infection, and incomplete removal Timeout: patient name, date of , surgical site, and procedure verified Timeout comment: Patient and provider identified site. Site was marked. Photo was taken and shown to patient, patient verified this is the correct site. Lesion destroyed using liquid nitrogen: Yes Region frozen until ice ball extended beyond lesion: Yes Cryotherapy cycles: 2 Lesion length (cm): 0.4 Lesion width (cm): 0.4 Margin per side (cm): 0 Final wound size (cm): 0.4 Outcome: patient tolerated procedure well with no complications Post-procedure details: wound care instructions given Post-procedure details comment: Post-cryotherapy instructions were given verbally and in writing. The office will be contacted if the lesion fails to resolve despite treatment, or if a side effect develops such as abnormal crusting, scabbing, reddness, discharge, or tenderness. Additional details: Previous accession number: [id number] [facility] No Panel InformationOrdered By: Pat Mcfarland on 12-13-2024 [facility] Work Phone: Abstracton 10-24-2024 Abstract [id number] Nell Champion chioma Fan 1955 F Date Provider Department Center 10/24/2024 EMELIA MORALES [facility] ONC DCC Family History Problem Relation Age of Onset Heart failure Mother Heart disease Father Family Status - Relation Status Age at Mother Father Normal [facility] C Urineon 10-18-2024 Bacteria identified Cx Nom (U) Microbiology PROCEDURE: Urine Culture [R1] SOURCE: U Random BODY SITE: COLLECTED DATE/TIME: 10/15/2024 15:40 EST RECEIVED DATE/TIME: 10/16/2024 17:42 EST START DATE/TIME: 10/16/2024 17:42 EST FREE TEXT SOURCE: JOSE ALEJANDRO MICHAUD, MAG BLOUNT PA-C, MAG Hester FINAL REPORTS Final Report [] Verified Date/Time: 10/18/2024 10:20 EST 25,000 cfu/ml Escherichia coli 25,000 cfu/ml Enterobacter cloacae 10,000 cfu/ml Klebsiella pneumoniae 5,000 cfu/ml Mixed skin contaminants SUSCEPTIBILITY RESULTS ___ LEGEND: S=Susceptible, N/R=Not Reported, Blank=Data not available, or drug not advisable or tested, I=Intermediate, ESBL=Extended spectrum beta-lactamase, R=Resistant, TFG=Thymidine-dependent strain, AMY=Beta-lactamase positive, CUCO=mcg/m;(mg/L), S*=Predicted susceptible interp, R*=Predicted resistant interp EC Entclo Klepne Antibiotic CUCO Dilutn CUCO Interp CUCO Dilutn CUCO Interp CUCO Dilutn CUCO Interp Ampicillin <=8 S >16 R >16 R Ampicillin/ <=8/4 S 16/8 R* <=8/4 S Sulbactam Aztreonam <=4 S <=4 S <=4 S Cefazolin <=2 S >16 R <=2 S Cefepime <=2 S <=2 S <=2 S Ceftazidime <=1 S <=1 S <=1 S Ceftazidime/ <=8 S <=8 S <=8 S Avibactam Ceftriaxone <=1 S <=1 S <=1 S Cefuroxime <=4 S <=4 R* <=4 S Ciprofloxacin <=0.25 S 0.5 I <=0.25 S Ertapenem <=0.5 S <=0.5 S <=0.5 S Gentamicin <=2 S <=2 S <=2 S Levofloxacin <=0.5 S <=0.5 S <=0.5 S Meropenem <=1 S <=1 S <=1 S Nitrofurantoin <=32 S 64 I 64 I Piperacillin/ <=8 S <=8 S <=8 S Tazobactam Tetracycline <=4 S <=4 S <=4 S Tobramycin <=2 S <=2 S <=2 S Trimethoprim/ <=2/38 S <=2/38 S <=2/38 S Sulfa Performing Locations R1: This test was performed at: [facility], [address] [place] [address], [id number] , , [facility] Comment on above: Performed By: #### [id number] #### [facility] [address] [place] [id number] Ambulatory Visit Summaryon 1 12-16-2023 Ambulatory Visit Summary Ambulatory Visit Summary DIANA CHAMPION :1955 Visit Date:10/15/2024 Ambulatory Visit Instructions Your Diagnosis Urge incontinence Your Care Team Attending Physician - MAG BLOUNT PA-C Primary Care Physician - TAPAN ZAZUETA MD Referring Physician - MARY ANN, MS. AIDA CHAPA This Is Your Medications List albuterol (albuterol 0.083% Inh Meagan 3 mL) baclofen ferrous sulfate (ferrous sulfate 325 mg Tab) fluticasone/umeclidinium /vilanterol (fluticasone/umeclidiniu m/vilanterol 200 mcg-62.5 mcg-25 mcg/inh inhalation powder) furosemide (Lasix 20 mg Tab) guaifenesin (guaiFENesin 600 mg ER Tab) latanoprost ophthalmic (Xalatan 0.005% Soln-Opth) magnesium oxide (magnesium oxide 400 mg Tab) montelukast (montelukast 10 mg Tab) multivitamin (Multi Vitamins oral tablet) omeprazole (omeprazole 20 mg Cap-DR) paroxetine (paroxetine 30 mg Tab) pramipexole (pramipexole 0.25 mg Tab) pregabalin (pregabalin 75 mg Cap) sodium chloride solifenacin (Vesicare 10 mg Tab) tramadol (traMADOL 50 mg Tab) trazodone (traZODONE 100 mg Tab) Procedures Performed CE - Cataract extraction, Colonoscopy, Hip replacement, Knee replacement, TL - Tubal ligation. Discharge Vitals Heart Rate (Peripheral) 64 Respiratory Rate 20 Blood Pressure 147/75 Height 163 cm Height 64 in Weight 107 kg Weight 235.894 lb BMI 40.27 What to do next Scheduled Follow-Up Appointments Monday 9:40 AM EDT With: MAG BLOUNT PA-C Where: [facility] [address] [id number]- Medications What How Much When Instructions Unchanged albuterol (albuterol 0.083% Inh Meagan 3 mL) 3 Milliliter Unchanged baclofen 10 Milligram By Mouth Unchanged ferrous sulfate (ferrous sulfate 325 mg Tab) 1 Tablets By Mouth Every day Unchanged fluticasone/ umeclidinium/ vilanterol (fluticasone/ umeclidinium/ vilanterol 200 mcg-62.5 mcg-25 mcg/ inh inhalation powder) Inhalation Every day Unchanged furosemide (Lasix 20 mg Tab) By Mouth Every day Unchanged guaifenesin (guaiFENesin 600 mg ER Tab) 1 Tablets By Mouth Every 12 hours Unchanged latanoprost ophthalmic (Xalatan 0.005% Soln-Opth) 1 Drops Unchanged magnesium oxide (magnesium oxide 400 mg Tab) Unchanged montelukast (montelukast 10 mg Tab) Unchanged multivitamin (Multi Vitamins oral tablet) By Mouth Every day Unchanged omeprazole (omeprazole 20 mg Cap-DR) 1 Capsules Unchanged paroxetine (paroxetine 30 mg Tab) 1 Tablets Unchanged pramipexole (pramipexole 0.25 mg Tab) By Mouth Unchanged pregabalin (pregabalin 75 mg Cap) 1 Capsules Unchanged sodium chloride Unchanged solifenacin (Vesicare 10 mg Tab) By Mouth Every day Unchanged tramadol (traMADOL 50 mg Tab) 1 Tablets By Mouth Unchanged trazodone (traZODONE 100 mg Tab) 1 Tablets Allergies fentaNYL (Hallucinations) Problems Ongoing - Any problem that you are currently receiving treatment for. 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 Please share your experience with us by completing your survey. We appreciate your feedback and thank you for choosing us for your care. Normal [facility] No Panel Informationon 10-11 Type of biopsy: tangential Informed consent: discussed and consent obtained Informed consent comment: The risks and benefits of the biopsy were discussed. Risks include but are not limited to bleeding, infection, scarring, pain, and nerve damage. An opportunity to ask questions prior to the procedure was permitted and all questions were answered. Patient was prepped and draped in usual sterile fashion: area cleansed with alcohol. Anesthesia: the lesion was anesthetized in a standard fashion Anesthetic: 1% lidocaine w/ epinephrine 1-100,000 buffered w/ 8.4% NaHCO3 Instrument used: DermaBlade Hemostasis achieved with: electrodesiccation Outcome: patient tolerated procedure well Outcome comment: The specimen was placed in a prelabeled formalin container to be sent for pathology Post-procedure details: sterile dressing applied and wound care instructions given Post-procedure details comment: Emphasized need to contact clinic for any signs of infection, uncontrollable bleeding, or complications. Dressing type: bandage Additional details: Photo taken Amount of lidocaine used: 0.5 cc [facility] 36on 09-20-2024 36 Faxed to [facility]. Ticker put in for Nov 2024 for patient to be scheduled with Dr. Church. [facility] 36on 09-12-2024 36 Patient called requesting clearance prior to cataract surgery. 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 Please advise. Thanks. [facility] EPITHELIAL CELLSon 4 Epithelial cells LM Ql (Urine sed) Epithelial Cells Few [facility] No Panel Informationon 08-13 [facility] RESULT 1on 08-13-2024 RESULT 1 Result 1 Moderate budding yeast present. [facility] RESULT 2on 08-13-2024 RESULT 2 Result 2 Few gram positive cocci [facility] RESULT 3on 08-13-2024 RESULT 3 Result 3 PREPARER MAKING [facility]PART[facility] RESULT 4on 08-13-2024 RESULT 4 Result 4 PREPARER MAKING DEPARTMENT [facility] WHITE BLOOD CELLSon 08-13-20 24 WHITE BLOOD CELLS White Blood Cells [facility] WHITE BLOOD CELLS Few [facility] ALL CBC WITH AUTO DIFFon BASOPHILS ABSOLUTE AUTO 0.1 [facility] Basophils/100 WBC (Bld) 0.5 % 0.2 - 2.0 % [facility] Eosinophils/100 WBC (Bld) 1.5 % 0.9 - 7.0 % [facility] Erythrocyte distribution width (RBC) [Ratio] 13.0 % 11.0 - 15.0 % [facility] Hematocrit (Bld) [Volume fraction] 39.0 % 36.0 - 48.0 % [facility] Hemoglobin (Bld) [Mass/Vol] 12.2 g/dL 12.0 - 16.0 g/dL [facility] IMMATURE GRANULOCYTES ABS AUTO 0.22 High [facility] Immature granulocytes/100 WBC (Bld) 2.4 % High 0.0 - 0.5 % [facility] Interpretation and review of laboratory results Abnormal [facility] LYMPHOCYTES ABSOLUTE AUTO 1.6 [facility] Lymphocytes/100 WBC (Bld) 17.2 % Low 20.5 - 60.0 % [facility] MCH (RBC) [Entitic mass] 29.7 pg 26.7 - 34.0 pg [facility] MCHC (RBC) [Mass/Vol] 31.3 g/dL 29.9 - 35.2 g/dL [facility] MCV (RBC) [Entitic vol] 94.9 fL 81.0 - 99.0 fL [facility] MONOCYTES ABSOLUTE AUTO 0.8 [facility] Monocytes/100 WBC (Bld) 8.3 % 1.7 - 12.0 % [facility] NEUTROPHILS ABSOLUTE AUTO 6.4 [facility] Neutrophils/100 WBC (Bld) 70.1 % 43.0 - 75.0 % [facility] Platelet mean volume (Bld) [Entitic vol] 8.8 fL Low 9.5 - 13.5 fL [facility] TBH EO # 0.1 [facility] TB PLT 266 [facility] TB RBC 4.[address] [facility] WBC 9.1 [facility] Telemedicineon 07-11-2024 Telemedicine [id number] Nell Champion 1955 F Date Provider Department Center 07/11/2024 EMELIA MORALES DCC ONC DCC Family History Problem Relation Age of Onset Heart failure Mother Heart disease Father Family Status - Relation Status Age at Mother Father Level of Service:05567 [place] PHYS/QHP TELEPHONE EVALUATION 21-30 MIN (GC) Reason for Visit and Comments: Telehealth Phone Visit [2] - Tracheobronchomalacia follow up per Dr Canseco. [facility] HPon 07-02-2024 H&P reviewed. The patient was examined and there are no changes [...] deficit PSYCH: appropriate mood, affect, and judgement. Normal [facility] NURSNOTEon 07-02-2024 NURSNOTE Follow up at [facility] with Matthew Vargas May resume a Regular Diet and home medications. Normal [facility] NURSNOTE Bronchoscopy Finding s: Tracheobronchomalacia Normal [facility] Telephoneon 06-27-2024 Telephone [id number] Nell Champion 1955 F Date Provider Department Center 06/27/2024 Vitor0-SOURAV ESCOBAR DCC ONC DCC Family History Problem Relation Age of Onset Heart failure Mother Heart disease Father Family Status - Relation Status Age at Mother Father [facility] Prep for Procedureon 024 Prep for Procedure [id number] Nell Champion 1955 Date Provider Department Center 06/26/2024 EMELIA MORALES Merged with [facility] Family History Problem Relation Age of Onset Heart failure Mother Heart disease Father Family Status - Relation Status Age at Mother Father Normal [facility] HPon 06-25-2024 HP ---- -------- Attestation signed by Emelia Yoo MD at [...] be an additional personal documentation from me. -------- Pulmonary Telemedicine Visit Note Patient: Diana Champion Age: 68 y.o. : 1955 Account No.: [id number] Referring physician: Dr. Bo Mcclain Chief complaint: Recurreny pneumonia HPI Diana Champion is a 68 y.o. female with PMHx of reportedly COPD, chronic hypoxic respiratory failure on 2L home O2 who is presenting to clinic as a new patient after being referred by Dr. Bo Baker of [facility]. Patient has been admitted 4 times [...] years. 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 Her family history is positive [...] Past Medical History: Diagnosis Date Asthma Cancer ([facility]) COPD (chronic obstructive pulmonary disease) ([facility]) Coronary artery disease GERD (gastroesophageal reflux [...] mouth every other day. Yes Historical Provider, dolahqmpfqk-ymvmyirrk-ic lanter 100-62.5-25 mcg blister with device Yes Historical [...] ER ta (more content not included)... Normal [facility] Telemedicineon 06-25-2024 Telemedicine [id number] Nell Champion 1955 Provider Department Center 06/25/2024 383-EMELIA YOO DCC ONC DCC Family History Problem Relation Age of Onset Heart failure Mother Heart disease Father Family Status - Relation Status Age at Mother Father Level of Service:14589 [place] PHYS/QHP TELEPHONE EVALUATION 21-30 MIN () Reason for Visit and Comments: New Patient [632] - PREPARER MAKING DEPARTMENT REFERRED BY BO 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 CT DONE 04-11-24 AND 06-07-24 AT [facility]. RECORDS SCANNED INTO MEDIA. FILMS REQUESTED- requested 3 times and [employer] IS DOWN. Could not get films. Normal [facility] Office Visiton 05-13-2024 Follow-up visit [id number] Nell Champion 1955 Provider Department Center 05/13/2024 271-HETAL CHURCH CARD [facility] Family History Problem Relation Age of Onset Heart failure Mother Heart disease Father Family Status - Relation Status Age at Mother Father Level of Service:51543 MA OFFICE/OUTPATIENT ESTABLISHED MOD MDM 30 MIN Normal [facility] Erythrocyte distribution wid th Auto (RBC) [Ratio]on 03-06-2024 Erythrocyte distribution width (RBC) [Ratio] 13.2 % 11.0-15.0 [facility] Estimated glomerular filtrat ion rate (GFR) non- Americanon 03-06-2024 GFR/1.73 sq M.predicted among non-blacks MDRD (S/P/Bld) [Vol rate/Area] 57 mL/min/{1.73_m2} >=60 [facility] Hematocrit Auto (Bld) [Volum e fraction]on 03-06-2024 Hematocrit (Bld) [Volume fraction] 38.7 % 36.0-48.0 [facility] Hemoglobin [Mass/volume] in Bloodon 03-06-2024 Hemoglobin (Bld) [Mass/Vol] 12.2 g/dL 12.0-16.0 [facility] Laboratory - Chemistry and C hemistry - challengeon 03-06-2024 Albumin [Mass/Vol] 3.0 g/dL 3.4-5.0 [facility] Calcium [Mass/Vol] 8.8 mg/dL 8.5-10.1 [facility] Chloride [Moles/Vol] 104 mmol/L 98-107 [facility] CO2 [Moles/Vol] 32.2 mmol/L 21.0-32.0 [facility] Creatinine [Mass/Vol] 0.97 mg/dL 0.55-1.02 [facility] GFR/1.73 sq M.predicted MDRD (S/P/Bld) [Vol rate/Area] mL/min/{1.73_m2} >=60 [facility] Glucose [Mass/Vol] 67 mg/dL 74-106 [facility] Magnesium [Mass/Vol] 1.9 mg/dL 1.8-2.4 [facility] Potassium [Moles/Vol] 3.4 mmol/L 3.5-5.1 [facility] Sodium [Moles/Vol] 143 mmol/L 136-145 [facility] Urate [Mass/Vol] 5.0 mg/dL 2.6-6.0 [facility] Urea nitrogen [Mass/Vol] 16.0 mg/dL 7.0-18.0 [facility] Urea nitrogen/Creatinine [Mass ratio] 16.5 mg/mg [facility] Leukocytes [#/volume] correc melanie for nucleated erythrocytes in Blood by Automated counon 03-06-2024 WBC corrected for nucl RBC Auto (Bld) [#/Vol] 8.1 10 3/uL 4.0-11.0 [facility] MCH Auto (RBC) [Entitic mass ]on 03-06-2024 MCH (RBC) [Entitic mass] 30.4 pg 26.7-34.0 [facility] MCHC Auto (RBC) [Mass/Vol]on 03-06-2024 MCHC (RBC) [Mass/Vol] 31.5 g/dL 29.9-35.2 [facility] MCV Auto (RBC) [Entitic vol] on 03-06-2024 MCV (RBC) [Entitic vol] 96.5 fL 81.0-99.0 [facility] No Panel Informationon 03-06 Urine Random Creatinine 63.27 mg/dL 20.00-300.00 [facility] Urine Random Total Protein <6.0 mg/dL <=11.9 [facility] 25-Hydroxy Vitamin D Total 37.1 ng/mL [facility] Comment on above: <20 ng/mL Vit D defi cient20-<30 ng/mL Vit D qgpgmfvyzhey47-187 ng/mL Vit D sufficient>100 ng/mL Potential Toxicity Parathyroid Hormone (Intact) 36 pg/mL 15-65 [facility] Comment on above: Performed at: [facility] [place] [address] [id number] Director: Raphael Marrero PhD, Phone: [phone] Phosphorus Level 3.2 mg/dL 2.6-4.7 [facility] Platelet mean volume Auto (B ld) [Entitic vol]on 03-06-2024 Platelet mean volume (Bld) [Entitic vol] 9.1 fL 9.5-13.5 [facility] Platelets Auto (Bld) [#/Vol] on 03-06-2024 Platelets (Bld) [#/Vol] 247 10 3/uL 150-450 [facility] RBC Auto (Bld) [#/Vol]on RBC (Bld) [#/Vol] 4.01 10 6/uL 4.20-5.40 [facility] Serum or plasma anion gap de terminationon 03-06-2024 Anion gap [Moles/Vol] 10.2 mmol/L [facility] SYMPTOMATIC COVID-19 ANTIGEN on 04-04-2023 EUA Statement SEE BELOW Normal [facility] Comment on above: Result Comment: This [...] sooner. Performed By: #### C VDAGS #### [facility] [address] [place] [address] Dr. Shayen Roldan SARS-CoV-2 (COVID-19) RNA KAYLEE+probe Ql (Unsp spec) Positive Abnormal NEGATIVE [facility] Comment on above: Performed By: #### C VDAGS #### [facility] [address] [place] [address] Dr. Shayne Roldan XR LSPINE 2_3 VIEWSon [...] STEPH GRANADOS Date: 2023-03-24 12:52 Normal [facility] PTH INTACTon 02-27-2023 PTH, Intact 87 pg/mL Critically high 15-65 [facility] Comment on above: Performed By: #### P THINT #### [facility] [address] [place] [address] Dr. Shayne Roldan HEMOGRAM AND PLATELon 2022 Hematocrit (Bld) [Volume fraction] 44.4 % Normal 36.0-48.0 [facility] Comment on above: Performed By: #### H H #### [facility] [address] [place] [address] Dr. Shayne Roldan Hemoglobin (Bld) [Mass/Vol] 14.5 g/dL Normal 12.0-16.0 [facility] Comment on above: Performed By: #### H H #### [facility] [address] [place] [address] Dr. Shayne Roldan MCH (RBC) [Entitic mass] 30.3 pg Normal 26.7-34.0 [facility] Comment on above: Performed By: #### H H #### [facility] [address] [place] [address] Dr. Shayne Roldan MCHC (RBC) [Mass/Vol] 32.7 g/dL Normal 29.9-35.2 [facility] Comment on above: Performed By: #### H H #### [facility] [address] [place] [address] Dr. Shayne Roldan MCV (RBC) [Entitic vol] 92.9 fL Normal 81.0-99.0 [facility] Comment on above: Performed By: #### H H #### [facility] [address] [place] [address] Dr. Shayne Roldan PLT 367 103/ul Normal 150-450 [facility] Comment on above: Performed By: #### H H #### [facility] [address] [place] [address] Dr. Shayne Roldan RBC 4.78 106/ul Normal 4.20-5.40 [facility] Comment on above: Performed By: #### H H #### [facility] [address] [place] [address] Dr. Shayne Roldan WBC 9.9 103/ul Normal 4.0-11.0 [facility] Comment on above: Performed By: #### H H #### [facility] [address] [place] [address] Dr. Shayne Roldan MAGNESIUMon 02-25-2023 Magnesium [Mass/Vol] 1.6 mg/dL Critically low 1.8-2.4 [facility] Comment on above: Performed By: #### M G, RENAL, URIC #### [facility] [address] [place] [address] Dr. Shayne Roldan RENAL FUNCTION PANELon 02-25 Albumin [Mass/Vol] 3.4 g/dL Normal 3.4-5.0 [facility] Comment on above: Performed By: #### M G, RENAL, URIC #### [facility] [address] [place] [address] Dr. Shayne Roldan Calcium [Mass/Vol] 8.7 mg/dL Normal 8.5-10.1 [facility] Comment on above: Performed By: #### M G, RENAL, URIC #### [facility] [address] [place] [address] Dr. Shayne Roldan Chloride [Moles/Vol] 104 mmol/L Normal 98-107 [facility] Comment on above: Performed By: #### M G, RENAL, URIC #### [facility] [address] [place] [address] Dr. Shayne Roldan CO2 [Moles/Vol] 25.9 mmol/L Normal 21.0-32.0 [facility] Comment on above: Performed By: #### M G, RENAL, URIC #### [facility] [address] [place] [address] Dr. Shayne Roldan Creatinine [Mass/Vol] 1.19 mg/dL Critically high 0.55-1.02 [facility] Comment on above: Performed By: #### M G, RENAL, URIC #### [facility] [address] [place] [address] Dr. Shayne Roldan EGFR-AF ALBANIAN 55 mL/min/1.73m2 Critically low >=60 [facility] Comment on above: Performed By: #### M G, RENAL, URIC #### [facility] [address] [address] [address] Shayne Roldan EGFR-NON AF ALBANIAN 45 mL/min/1.73m2 Critically low >=60 [facility] Comment on above: Performed By: #### M G, RENAL, URIC #### [facility] [address] [address] [address] Shayne Roldan Glucose [Mass/Vol] 193 mg/dL Critically high 74-[address] [facility] Comment on above: Performed By: #### M G, RENAL, URIC #### [facility] [address] [address] [address] Shayne Roldan Phosphate [Mass/Vol] 3.2 mg/dL Normal 2.6-4.7 [facility] Comment on above: Performed By: #### M G, RENAL, URIC #### [facility] [address] [place] [address] Dr. Shayne Roldan Potassium [Moles/Vol] 3.9 mmol/L Normal 3.5-5.1 [facility] Comment on above: Performed By: #### M G, RENAL, URIC #### [facility] [address] [address] [address] Shayne Roldan Sodium [Moles/Vol] 140 mmol/L Normal 136-145 [facility] Comment on above: Performed By: #### M G, RENAL, URIC #### [facility] [address] [place] [address] Dr. Shayne Roldan Urea nitrogen [Mass/Vol] 17.0 mg/dL Normal 7.0-18.0 [facility] Comment on above: Performed By: #### M G, RENAL, URIC #### [facility] [address] [place] [address] Dr. Shayne Roldan UA RANDOM W/MICROSCOPICon BACTERIA TRACE Abnormal NONE SEEN [facility] Comment on above: Performed By: #### M G, RENAL, URIC #### [facility] [address] [place] [address] Dr. Shayne Roldan Bilirubin Ql (U) Negative Normal NEGATIVE [facility] Comment on above: Performed By: #### M G, RENAL, URIC #### [facility] [address] [address] [address] Shayne Roldan CAST NONE SEEN Normal NONE SEEN [facility] Comment on above: Performed By: #### M G, RENAL, URIC #### [facility] [address] [address] [address] Shayne Roldan Clarity (U) CLEAR Normal CLEAR [facility] Comment on above: Performed By: #### M G, RENAL, URIC #### [facility] [address] [address] [address] Shayne Roldan Color (U) LT. YELLOW Normal YELLOW [facility] Comment on above: Performed By: #### M G, RENAL, URIC #### [facility] [address] [place] [address] Dr. Shayne Roldan Crystals LM Nom (Urine sed) NONE SEEN Normal NONE SEEN [facility] Comment on above: Performed By: #### M G, RENAL, URIC #### [facility] [address] [place] [address] Dr. Shayne Roldan Epithelial cells LM Ql (Urine sed) RARE Normal NONE SEEN /RARE [facility] Comment on above: Performed By: #### M G, RENAL, URIC #### [facility] [address] [place] [address] Dr. Shayne Roldan Glucose Ql (U) Negative Normal NEGATIVE [facility] Comment on above: Performed By: #### M G, RENAL, URIC #### [facility] [address] [place] [address] Dr. Shayne Roldan Hemoglobin Ql (U) Negative Normal NEGATIVE [facility] Comment on above: Performed By: #### M G, RENAL, URIC #### [facility] [address] [address] [address] Shayne Roldan Ketones Ql (U) Negative Normal NEGATIVE [facility] Comment on above: Performed By: #### M G, RENAL, URIC #### [facility] [address] [place] [address] Dr. Shayne Roldan LEUKOCYTES Negative Normal NEGATIVE [facility] Comment on above: Performed By: #### M G, RENAL, URIC #### [facility] [address] [address] [address] Shayne Roldan MUCOUS NONE SEEN Normal NONE SEEN [facility] Comment on above: Performed By: #### M G, RENAL, URIC #### [facility] [address] [address] [address] Shayne Roldan Nitrite Ql (U) Negative Normal NEGATIVE [facility] Comment on above: Performed By: #### M G, RENAL, URIC #### [facility] [address] [place] [address] Dr. Shayne Roldan pH (U) 5.0 [pH] Normal 5-9 [facility] Comment on above: Performed By: #### M G, RENAL, URIC #### [facility] [address] [place] [address] Dr. Shayne Roldan RBC 0-2 Normal 0-2 [facility] Comment on above: Performed By: #### M G, RENAL, URIC #### [facility] [address] [place] [address] Dr. Shayne Roldan SPEC GRAVITY 1.025 Normal 1.005-<=1.02 5 [facility] Comment on above: Performed By: #### M G, RENAL, URIC #### [facility] [address] [place] [address] Dr. Shayne Roldan UA PROTEIN Negative Normal NEGATIVE/ TRACE [facility] Comment on above: Performed By: #### M G, RENAL, URIC #### [facility] [address] [place] [address] Dr. Shayne Roldan Urobilinogen Qn (U) 0.2 {Rogelio'U}/dL Normal 0.2 - 1. 0 [facility] Comment on above: Performed By: #### M G, RENAL, URIC #### [facility] [address] [place] [address] Dr. Shayne Roldan WBC 0-2 Abnormal NONE SEEN [facility] Comment on above: Performed By: #### M G, RENAL, URIC #### [facility] [address] [place] [address] Dr. Shayne Roldan URIC ACID SERUMon 02-25-2023 Urate [Mass/Vol] 6.1 mg/dL Critically high 2.6-6.0 [facility] Comment on above: Performed By: #### M G, RENAL, URIC #### [facility] [address] [address] [address] Shayne Roldan URINE T PROTEIN CREAT RATIOo n 02-25-2023 Protein (U) [Mass/Vol] 13.0 mg/dL Critically high <=12.0 [facility] Comment on above: Performed By: #### M G, RENAL, URIC #### [facility] [address] [address] [address] Shayne Roldan UR PROT CREAT RAT 0.16 Normal [facility] Comment on above: Performed By: #### M G, RENAL, URIC #### [facility] [address] [place] [address] Dr. Shayne Roldan URINE CREAT 83.60 mg/dL Normal 20.00-300.00 [facility] Comment on above: Performed By: #### M G, RENAL, URIC #### [facility] [address] [address] [address] Shayne Roldan VITAMIN D 25 OHon 02-25-2023 VIT D 25-OH 41.6 ng/mL Normal [facility] Comment on above: Performed By: #### M G, RENAL, URIC #### [facility] [address] [address] [address] Shayne Roldan VIT D RANGES SEE BELOW Normal [facility] Comment on above: Result Comment: <20 ng/mL Vit D deficient 20 - <30 ng/mL Vit D insufficient 30 - 100 ng/mL Vit D sufficient >100 ng/mL Potential Toxicity Performed By: #### M G, RENAL, URIC #### [facility] [address] [place] [address] Dr. Shayne Roldan XR CHEST 2 Von [...] by: BRITTANY GALDAMEZ Date: 2023-02-22 16:15 Normal [facility] MAMM SCREEN 3D PRATEEK CADon 12-15-2022 MAMM SCREEN 3D PRATEEK CAD Patient: DIANA CHAMPION Exam Date: 12/15/2022 : 1955 Gender:F Ordering : DR JACK HALL . Admission #: [id number] Family : Order #: [id number] CLICK HERE TO VIEW EXAM RADIOLOGY REPORT PROCEDURE: MAMMOGRAM SCREENING 3D BILATERAL CAD COMPARISON: MAMM SCREEN 3D PRATEEK CAD, 11/26/2021. INDICATIONS: Calculator Name NCI Breast Cancer Risk Assessment Tool 5 Year Breast Cancer Risk 1.20% Lifetime Breast Cancer Risk 4.40% Personal Breast Cancer No Personal Ovarian Cancer No Treatments Excision, radiation, chemotherapy Family Cancers None LOCATION: [facility] BREAST COMPOSITION: Almost entirely fatty. FINDINGS: [...] Walters MD on 12/15/2022 at 10:51 Normal [facility] XR DEXA BONE DENSITYon 12-15 XR [...] by: STEPH GRANADOS Date: 2022-12-15 09:50 Normal [facility] PAP ACOG PANEL 2: 30 to 65on 11-16-2022 . . Normal [facility] Comment on above: Performed By: #### [id number] #### [facility] [address] [place] [address] Dr. Shayne Roldan Age Gdln ACOG Testing Comment [facility] Comment on above: Result Comment: <21 or >65 or no age provided Performed By: #### [id number] #### [facility] [address] [place] [address] Dr. Shayne Roldan DIAGNOSIS: Comment [facility] Comment on above: Result Comment: NEGA TIVE FOR INTRAEPITHELIAL LESION OR MALIGNANCY. Performed By: #### [id number] #### [facility] [address] [place] [address] Dr. Shayne Roldan Methodology: Comment [facility] Comment on above: Result Comment: This liquid based ThinPrep(R) pap test was screened with the use of an image guided system. Performed By: #### [id number] #### [facility] [address] [place] [address] Dr. Shayne Roldan Note: Comment [facility] [...] do occur. . Performed By: #### [id number] #### [facility] [address] [place] [address] Dr. Shayne Roldan Performed by: Comment Normal [facility] Comment on above: Result Comment: Onur Aguilar Coke Worker (ASCP) Performed By: #### [id number] #### [facility] [address] [place] [address] Dr. Shayne Roldan Specimen adequacy: Comment Normal [facility] Comment on above: Result Comment: Sati sfactory for evaluation. Endocervical and/or squamous metaplastic cells (endocervical component) are present. Performed By: #### [id number] #### [facility] [address] [address] [address] Shayne Roldan RENAL FUNCTION PANELon 08-19 Albumin [Mass/Vol] 3.4 g/dL Normal 3.4-5.0 [facility] Comment on above: Performed By: #### M G, RENAL, URIC #### [facility] [address] [place] [address] Dr. Shayne Roldan Calcium [Mass/Vol] 8.4 mg/dL Critically low 8.5-10.1 [facility] Comment on above: Performed By: #### M G, RENAL, URIC #### [facility] [address] [place] [address] Dr. Shayne Roldan Chloride [Moles/Vol] 103 mmol/L Normal 98-107 [facility] Comment on above: Performed By: #### M G, RENAL, URIC #### [facility] [address] [place] [address] Dr. Shayne Roldan CO2 [Moles/Vol] 27.8 mmol/L Normal 21.0-32.0 [facility] Comment on above: Performed By: #### M G, RENAL, URIC #### [facility] [address] [place] [address] Dr. Shayne Roldan Creatinine [Mass/Vol] 1.02 mg/dL Normal 0.55-1.02 [facility] Comment on above: Performed By: #### M G, RENAL, URIC #### [facility] [address] [place] [address] Dr. Shayne Roldan EGFR-AF ALBANIAN >60 Normal >=60 [facility] Comment on above: Performed By: #### M G, RENAL, URIC #### [facility] [address] [place] [address] Dr. Shayne Roldan EGFR-NON AF ALBANIAN 54 mL/min/1.73m2 Critically low >=60 [facility] Comment on above: Performed By: #### M G, RENAL, URIC #### [facility] [address] [address] [address] Shayne Roldan Glucose [Mass/Vol] 110 mg/dL Critically high 74-[address] [facility] Comment on above: Performed By: #### M G, RENAL, URIC #### [facility] [address] [address] [address] Shayne Roldan Phosphate [Mass/Vol] 2.3 mg/dL Critically low 2.6-4.7 [facility] Comment on above: Performed By: #### M G, RENAL, URIC #### [facility] [address] [place] [address] Dr. Shayne Roldan Potassium [Moles/Vol] 3.2 mmol/L Critically low 3.5-5.1 [facility] Comment on above: Performed By: #### M G, RENAL, URIC #### [facility] [address] [address] [address] Shayne Roldan Sodium [Moles/Vol] 138 mmol/L Normal 136-145 [facility] Comment on above: Performed By: #### M G, RENAL, URIC #### [facility] [address] [address] [address] Shayne Roldan Urea nitrogen [Mass/Vol] 14.0 mg/dL Normal 7.0-18.0 [facility] Comment on above: Performed By: #### M G, RENAL, URIC #### [facility] [address] [place] [address] Dr. Shayne Roldan PTH INTACTon 08-06-2022 PTH, Intact 40 pg/mL Normal 15-65 [facility] Comment on above: Performed By: #### M G, RENAL, URIC #### [facility] [address] [address] [address] Shayne Roldan HEMOGRAM AND PLATELon 2021 Hematocrit (Bld) [Volume fraction] 39.8 % Normal 36.0-48.0 [facility] Comment on above: Performed By: #### M G, RENAL, URIC #### [facility] [address] [place] [address] Dr. Shayne Roldan Hemoglobin (Bld) [Mass/Vol] 13.4 g/dL Normal 12.0-16.0 [facility] Comment on above: Performed By: #### M G, RENAL, URIC #### [facility] [address] [place] [address] Dr. Shayne Roldan MCH (RBC) [Entitic mass] 30.5 pg Normal 26.7-34.0 [facility] Comment on above: Performed By: #### M G, RENAL, URIC #### [facility] [address] [place] [address] Dr. Shayne Roldan MCHC (RBC) [Mass/Vol] 33.7 g/dL Normal 29.9-35.2 [facility] Comment on above: Performed By: #### M G, RENAL, URIC #### [facility] [address] [place] [address] Dr. Shayne Roldan MCV (RBC) [Entitic vol] 90.5 fL Normal 81.0-99.0 [facility] Comment on above: Performed By: #### M G, RENAL, URIC #### [facility] [address] [place] [address] Dr. Shayne Roldan PLT 299 103/ul Normal 150-450 [facility] Comment on above: Performed By: #### M G, RENAL, URIC #### [facility] [address] [place] [address] Dr. Shayne Roldan RBC 4.40 106/ul Normal 4.20-5.40 [facility] Comment on above: Performed By: #### M G, RENAL, URIC #### [facility] [address] [place] [address] Dr. Shayne Roldan WBC 8.8 103/ul Normal 4.0-11.0 [facility] Comment on above: Performed By: #### M G, RENAL, URIC #### [facility] [address] [place] [address] Dr. Shayne Roldan MAGNESIUMon 09-30-2022 Magnesium [Mass/Vol] 1.5 mg/dL Critically low 1.8-2.4 [facility] Comment on above: Performed By: #### M G, RENAL, URIC #### [facility] [address] [address] [address] Shayne Roldan RENAL FUNCTION PANELon 08-05 Albumin [Mass/Vol] 3.5 g/dL Normal 3.4-5.0 [facility] Comment on above: Performed By: #### M G, RENAL, URIC #### [facility] [address] [address] [address] Shayne Roldan Calcium [Mass/Vol] 8.4 mg/dL Critically low 8.5-10.1 [facility] Comment on above: Performed By: #### M G, RENAL, URIC #### [facility] [address] [address] [address] Shayne Roldan Chloride [Moles/Vol] 101 mmol/L Normal 98-107 [facility] Comment on above: Performed By: #### M G, RENAL, URIC #### [facility] [address] [address] [address] Shayne Roldan CO2 [Moles/Vol] 29.5 mmol/L Normal 21.0-32.0 [facility] Comment on above: Performed By: #### M G, RENAL, URIC #### [facility] [address] [address] [address] Shayne Roldan Creatinine [Mass/Vol] 1.04 mg/dL Critically high 0.55-1.02 [facility] Comment on above: Performed By: #### M G, RENAL, URIC #### [facility] [address] [address] [address] Shayne Roldan EGFR-AF ALBANIAN >60 Normal >=60 [facility] Comment on above: Performed By: #### M G, RENAL, URIC #### [facility] [address] [address] [address] Shayne Roldan EGFR-NON AF ALB[place]IAN 53 mL/min/1.73m2 Critically low >=60 [facility] Comment on above: Performed By: #### M G, RENAL, URIC #### [facility] [address] [address] [address] Shayne Roldan Glucose [Mass/Vol] 92 mg/dL Normal 74-106 [facility] Comment on above: Performed By: #### M G, RENAL, URIC #### [facility] [address] [place] [address] Dr. Shayne Roldan Phosphate [Mass/Vol] 2.4 mg/dL Critically low 2.6-4.7 [facility] Comment on above: Performed By: #### M G, RENAL, URIC #### [facility] [address] [place] [address] Dr. Shayne Roldan Potassium [Moles/Vol] 2.8 mmol/L Critically low 3.5-5.1 [facility] Comment on above: Performed By: #### M G, RENAL, URIC #### [facility] [address] [place] [address] Dr. Shayne Roldan Sodium [Moles/Vol] 137 mmol/L Normal 136-145 [facility] Comment on above: Performed By: #### M G, RENAL, URIC #### [facility] [address] [place] [address] Dr. Shayne Roldan Urea nitrogen [Mass/Vol] 10.0 mg/dL Normal 7.0-18.0 [facility] Comment on above: Performed By: #### M G, RENAL, URIC #### [facility] [address] [place] [address] Dr. Shayne Roldan UA RANDOM W/MICROSCOPICon BACTERIA SMALL Abnormal NONE SEEN The [facility] Comment on above: Performed By: #### U AMIC #### [facility] [address] [place] [address] Dr. Shayne Roldan Bilirubin Ql (U) Negative Normal NEGATIVE [facility] Comment on above: Performed By: #### U AMIC #### [facility] [address] [place] [address] Dr. Shayne Roldan CAST NONE SEEN Normal NONE SEEN The [facility] Comment on above: Performed By: #### U AMIC #### [facility] [address] [address] [address] Shayne Roldan Clarity (U) CLEAR Normal CLEAR [facility] Comment on above: Performed By: #### U AMIC #### [facility] [address] [address] [address] Shayne Roldan Color (U) LT. YELLOW Normal YELLOW [facility] Comment on above: Performed By: #### U AMIC #### [facility] [address] [address] [address] Shayne Roldan Crystals LM Nom (Urine sed) NONE SEEN Normal NONE SEEN [facility] Comment on above: Performed By: #### U AMIC #### [facility] [address] [place] [address] Dr. Shayne Roldan Epithelial cells LM Ql (Urine sed) FEW Abnormal NONE SEEN /RARE [facility] Comment on above: Performed By: #### U AMIC #### [facility] [address] [place] [address] Dr. Shayne Roldan Glucose Ql (U) Negative Normal NEGATIVE [facility] Comment on above: Performed By: #### U AMIC #### [facility] [address] [address] [address] Shayne Roldan Hemoglobin Ql (U) Negative Normal NEGATIVE [facility] Comment on above: Performed By: #### U AMIC #### [facility] [address] [address] [address] Shayne Roldan Ketones Ql (U) Negative Normal NEGATIVE [facility] Comment on above: Performed By: #### U AMIC #### [facility] [address] [address] [address] Shayne Roldan LEUKOCYTES TRACE Abnormal NEGATIVE [facility] Comment on above: Performed By: #### U AMIC #### [facility] [address] [place] [address] Dr. Shayne Roldan MUCOUS NONE SEEN Normal NONE SEEN [facility] Comment on above: Performed By: #### U AMIC #### [facility] [address] [address] [address] Shayne Roldan Nitrite Ql (U) Negative Normal NEGATIVE [facility] Comment on above: Performed By: #### U AMIC #### [facility] [address] [place] [address] Dr. Shayne Roldan pH (U) 6.0 [pH] Normal 5-9 [facility] Comment on above: Performed By: #### U AMIC #### [facility] [address] [place] [address] Dr. Shayne Roldan RBC NONE SEEN Abnormal 0-2 [facility] Comment on above: Performed By: #### U AMIC #### [facility] [address] [place] [address] Dr. Shayne Roldan SPEC GRAVITY <=1.005 Abnormal 1.005-<=1.02 5 [facility] Comment on above: Performed By: #### U AMIC #### [facility] [address] [place] [address] Dr. Shayne Roldan UA PROTEIN Negative Normal NEGATIVE/ TRACE [facility] Comment on above: Performed By: #### U AMIC #### [facility] [address] [place] [address] Dr. Shayne Roldan Urobilinogen Qn (U) 0.2 {Rogelio'U}/dL Normal 0.2 - 1. 0 [facility] Comment on above: Performed By: #### U AMIC #### [facility] [address] [place] [address] Dr. Shayne Roldan WBC 5-10 Abnormal NONE SEEN [facility] Comment on above: Performed By: #### U AMIC #### [facility] [address] [place] [address] Dr. Shayne Roldan URIC ACID SERUMon 08-05-2022 Urate [Mass/Vol] 6.5 mg/dL Critically high 2.6-6.0 [facility] Comment on above: Performed By: #### M G, RENAL, URIC #### [facility] [address] [place] [address] Dr. Shayne Roldan URINE T PROTEIN CREAT RATIOo n 08-05-2022 Protein (U) [Mass/Vol] 4.8 mg/dL Normal <=12.0 [facility] Comment on above: Performed By: #### U RTPCR #### [facility] [address] [place] [address] Dr. Shayne Roldan UR PROT CREAT RAT 0.09 Normal [facility] Comment on above: Performed By: #### U RTPCR #### [facility] [address] [place] [address] Dr. Shayne Roldan URINE CREAT 52.65 mg/dL Normal 20.00-300.00 [facility] Comment on above: Performed By: #### U RTPCR #### [facility] [address] [place] [address] Dr. Shayne Roldan VITAMIN D 25 OHon 08-05-2022 VIT D 25-OH 38.9 ng/mL Normal [facility] Comment on above: Performed By: #### M G, RENAL, URIC #### [facility] [address] [place] [address] Dr. Shayne Roldan VIT D RANGES SEE BELOW Normal [facility] Comment on above: Result Comment: <20 ng/mL Vit D deficient 20 - <30 ng/mL Vit D insufficient 30 - 100 ng/mL Vit D sufficient >100 ng/mL Potential Toxicity Performed By: #### M G, RENAL, URIC #### [facility] [address] [place] [address] Dr. Shayne Roldan IMMUNOGLOBULINS IGA/IGM/IGG/ IGE QUANTITAon 07-12-2022 Immunoglobulin A, Qn, Serum 295 mg/dL Normal 87-352 [facility] Comment on above: Result Comment: Perf ormed at: CB Performed By: #### M G, RENAL, URIC #### [facility] [address] [place] [address] Dr. Shayne Roldan Immunoglobulin E, Total 32 IU/mL Normal 6-495 [facility] Comment on above: Result Comment: Perf ormed at: BN Performed By: #### M G, RENAL, URIC #### [facility] [address] [place] [address] Dr. Shayne Roldan Immunoglobulin G, Qn, Serum 729 mg/dL Normal 586-1602 [facility] Comment on above: Result Comment: Perf ormed at: CB Performed By: #### M G, RENAL, URIC #### [facility] [address] [address] [address] Shayne Roldan Immunoglobulin M, Qn, Serum 75 mg/dL Normal 26-217 [facility] Comment on above: Result Comment: Perf ormed at: CB Performed By: #### M G, RENAL, URIC #### [facility] [address] [address] [address] Shayne Roldan CBC AUTO DIFFon 07-05-2022 BASO # 0.1 103/ul Normal 0.0-0.1 [facility] Comment on above: Performed By: #### M G, RENAL, URIC #### [facility] [address] [place] [address] Dr. Shayne Roldan Basophils/100 WBC (Bld) 0.7 % Normal 0.2-2.0 [facility] Comment on above: Performed By: #### M G, RENAL, URIC #### [facility] [address] [address] [address] Shayne Roldan EO # 0.4 103/ul Normal 0.0-0.7 [facility] Comment on above: Performed By: #### M G, RENAL, URIC #### [facility] [address] [address] [address] Shayne Roldan Eosinophils/100 WBC (Bld) 4.4 % Normal 0.9-7.0 [facility] Comment on above: Performed By: #### M G, RENAL, URIC #### [facility] [address] [address] [address] Shayne Roldan Erythrocyte distribution width (RBC) [Ratio] 12.6 % Normal 11.0-15.0 [facility] Comment on above: Performed By: #### M G, RENAL, URIC #### [facility] [address] [address] [address] Shayne Roldan Hematocrit (Bld) [Volume fraction] 40.2 % Normal 36.0-48.0 [facility] Comment on above: Performed By: #### M G, RENAL, URIC #### [facility] [address] [place] [address] Dr. Shayne Roldan Hemoglobin (Bld) [Mass/Vol] 13.6 g/dL Normal 12.0-16.0 [facility] Comment on above: Performed By: #### M G, RENAL, URIC #### [facility] [address] [place] [address] Dr. Shayne Roldan IG # 0.07 10e3/ul Critically high 0.00-0.03 [facility] Comment on above: Performed By: #### M G, RENAL, URIC #### [facility] [address] [place] [address] Dr. Shayne Roldan IG % 0.8 % Critically high 0.0-0.5 [facility] Comment on above: Performed By: #### M G, RENAL, URIC #### [facility] [address] [place] [address] Dr. Shayne Roldan LYMPH # 2.3 103/ul Normal 1.2-3.8 [facility] Comment on above: Performed By: #### M G, RENAL, URIC #### [facility] [address] [place] [address] Dr. Shayne Roldan Lymphocytes/100 WBC (Bld) 24.7 % Normal 20.5-60.0 [facility] Comment on above: Performed By: #### M G, RENAL, URIC #### [facility] [address] [place] [address] Dr. Shayne Roldan MANUAL DIFF REQ NO Normal [facility] Comment on above: Performed By: #### M G, RENAL, URIC #### [facility] [address] [place] [address] Dr. Shayne Roldan MCH (RBC) [Entitic mass] 30.7 pg Normal 26.7-34.0 [facility] Comment on above: Performed By: #### M G, RENAL, URIC #### [facility] [address] [place] [address] Dr. Shayne Roldan MCHC (RBC) [Mass/Vol] 33.8 g/dL Normal 29.9-35.2 [facility] Comment on above: Performed By: #### M G, RENAL, URIC #### [facility] [address] [place] [address] Dr. Shayne Roldan MCV (RBC) [Entitic vol] 90.7 fL Normal 81.0-99.0 [facility] Comment on above: Performed By: #### M G, RENAL, URIC #### [facility] [address] [place] [address] Dr. Shayne Roldan MONO # 0.7 103/ul Normal 0.3-0.8 [facility] Comment on above: Performed By: #### M G, RENAL, URIC #### [facility] [address] [place] [address] Dr. Shayne Roldan Monocytes/100 WBC (Bld) 7.7 % Normal 1.7-12.0 [facility] Comment on above: Performed By: #### M G, RENAL, URIC #### [facility] [address] [place] [address] Dr. Shayne Roldan NEUT # 5.7 103/ul Normal 1.4-6.5 [facility] Comment on above: Performed By: #### M G, RENAL, URIC #### [facility] [address] [place] [address] Dr. Shayne Roldan Neutrophils/100 WBC (Bld) 61.7 % Normal 43.0-75.0 [facility] Comment on above: Performed By: #### M G, RENAL, URIC #### [facility] [address] [place] [address] Dr. Shayne Roldan Platelet mean volume (Bld) [Entitic vol] 8.8 fL Critically low 9.5-13.5 [facility] Comment on above: Performed By: #### M G, RENAL, URIC #### [facility] [address] [place] [address] Dr. Shayne Roldan PLT 279 103/ul Normal 150-450 [facility] Comment on above: Performed By: #### M G, RENAL, URIC #### [facility] [address] [address] [address] Shayne Roldan RBC 4.43 106/ul Normal 4.20-5.40 [facility] Comment on above: Performed By: #### M G, RENAL, URIC #### [facility] [address] [address] [address] Shayne Roldan WBC 9.1 103/ul Normal 4.0-11.0 [facility] Comment on above: Performed By: #### M G, RENAL, URIC #### [facility] [address] [address] [address] Shayne Roldan [facility]on SARS-CoV-2 (COVID-19) RNA KAYLEE+probe Ql (Unsp spec) Not detected Normal NOT DETECTED [facility] Comment on above: Result Comment: This test is not yet approved or cleared by the [place] FDA. When there are no FDA-approved or cleared tests available, and other criteria are met, FDA can make tests available under an emergency access mechanism called an Emergency Use Authorization (EUA). The EUA for this test is supported by the [place] of Health and Human Service's (HHS's) declaration [...] By: #### M G, RENAL, URIC #### [facility] [address] [address] [address] Shayne Roldan XR CHEST 2 Von [...] NARDA LONDONO Date: 2022-06-08 19:58 Normal [facility] Covid-19 PCR ([facility])on SARS-CoV-2 (COVID-19) RNA KAYLEE+probe Ql (Unsp spec) Not detected Normal NOT DETECTED [facility] Comment on above: Result Comment: This test is not yet approved or cleared by the [place] FDA. When there are no FDA-approved or cleared tests available, and other criteria are met, FDA can make tests available under an emergency access mechanism called an Emergency Use Authorization (EUA). The EUA for this test is supported by the [place] of Health and Human Service's (HHS's) declaration [...] consistent with SARS-CoV-2. Performed By: #### [facility] #### [facility] [address] [place] [address] Dr. Shayne Roldan DEXA AXIALon 03-01-2022 DEXA AXIAL [facility] Department of Radiology [address] [place] [address] == Patient Name: DIANA CHAMPION : 1955 Sex: F Age: Race: White Pt. Location: Patient Status: D Ordered Date: 02/24/2022 1:25:00 PM Completed Date: 03/01/2022 09:46 AM Requesting Provider: CINDA ANTONIO Attending Provider: Report Copy To: Signs & Symptoms: Z78.0 Asymptomatic menopausal state I10 History: [place] Comments: Exam: DEXA AXIAL == DEXA AXIAL 03/01/2022 9:46 AM CLINICAL INDICATIONS: [...] individual patient clinical characteristics. Electronically signed: Luzma Marks. Transcribed by: [email or web address], User Resident: Electronically Signed by: LUZMA MARKS @ 03/02/2022 01:07 PM Normal [facility] SCOLIOSIS 2 VWSon 02-24-2022 SCOLIOSIS 2 [facility] Department of Radiology [address] [place] [id number] == Patient Name: DIANA CHAMPION : 1955 Sex: F Age: Race: White Pt. Location: Patient Status: D Ordered Date: 02/24/2022 1:25:00 PM Completed Date: 02/24/2022 01:44 PM Requesting Provider: CINDA ANTONIO Attending Provider: Report Copy To: Signs & Symptoms: M43.10 Spondylolisthesis, site unspecified I10 History: Comments: Views (X-RAY, SCOLIOSIS): PA, Lateral evaluate Exam: SCOLIOSIS 2 [facility] == Scoliosis. Worsening pain. Frontal and lateral thoracolumbar spine IMPRESSION: 1. Diffuse disc disease and facet arthritis. Right convex mid lumbar curvature measuring 16 degrees. Interbody fusion hardware lower lumbar spine. Electronically signed: Hugo Lynn. Transcribed by: [email or web address], User Resident: Electronically Signed by: HUGO LYNN @ 02/26/2022 11:07 AM Normal [facility] Comment on above: Order Comment: Views (X-RAY, SCOLIOSIS): PA, Lateral evaluate CT LUMBAR SPINE W CONTRASTon 01-24-2022 CT LUMBAR SPINE W CONTRAST [facility] Department of Radiology [address] [place] [address] == Patient Name: DIANA CHAMPION : 1955 Sex: F Age: Race: White Pt. Location: Patient Status: D Ordered Date: 01/09/2022 9:00:00 AM Completed Date: 01/24/2022 03:26 PM Requesting Provider: JOO BRAVO Attending Provider: JOO BRAVO Report Copy To: UNKNOWN, PHYSICIAN Signs & Symptoms: M54.16 Radiculopathy, lumbar region I10 History: [place] Comments: , CT MYELOGRAM>PAPER WORK IN CHART Exam: CT LUMBAR SPINE W CONTRAST == CT LUMBAR SPINE W CONTRAST 01/24/2022 3:26 [...] L1-2. Electronically signed: Gaurang Lawrence. Transcribed by: [email or web address], User Resident: Electronically Signed by: GAURANG Sheets DESHAWN @ 01/26/2022 08:58 AM Normal [facility] Comment on above: Order Comment: , CT MYELOGRAM>PAPER WORK IN CHART LUMBAR MYELOGRAMon 2 LUMBAR MYELOGRAM [facility] Department of Radiology [address] [place] [id number] == Patient Name: DIANA CHAMPION : 1955 Sex: F Age: Race: White Pt. Location: Patient Status: O Ordered Date: 01/09/2022 9:00:00 AM Completed Date: 01/24/2022 02:37 PM Requesting Provider: JOO BRAVO Attending Provider: JOO BRAVO Report Copy To: UNKNOWN, PHYSICIAN Signs & Symptoms: M54.16 Radiculopathy, lumbar region I10 History: Jessica Is patient on thinners? 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 Mcmahan/Abel used 0.58 minutes of fluoro time and [...] risks are acceptable. Consent was obtained. Timeout: Range protocol timeout verification performed. PROCEDURE: Estimated blood [...] was sent for CT lumbar myelogram. Dr. Mcmahan was present for the entire procedure. IMPRESSION: * Successful lumbar spine myelogram. Please see separate CT lumbar spine report for detailed findings. Approved by:Debbie Almaguer01/24/2022 3:51 PM. I, Greg Mcmahan,have reviewed the image(s) and agree with the findings in this report. Electronically signed: Greg Mcmahan. Transcribed by: [email or web address], User Resident: [email or web address] JI Electronically Signed by: GREG MCMAHAN @ 01/24/2022 04:07 PM I personally read this/these film(s) with this resident Normal [facility] Comment on above: Order Comment: , CT MYELOGRAM> PAPER WORK SCANNED IN CHART , CT MYELOGRAM> PAPER WORK SCANNED IN CHART , , , Ordering Provider - JOO BRAVO MD , HIP LEFT 1 OR 2 VWS WITH PEL VISon 01-06-2022 HIP LEFT 1 OR 2 VWS WITH PELVIS [facility] Department of Radiology [address] [place] [id number] == Patient Name: DIANA CHAMPION : 1955 Sex: F Age: Race: White Pt. Location: Patient Status: D Ordered Date: 12/21/2021 10:45:00 AM Completed Date: 01/06/2022 01:24 PM Requesting Provider: JOO BRAVO Attending Provider: JOO BRAVO Report Copy To: Signs & Symptoms: Z96.642 Presence of left artificial hip joint I10 History: Jessica Comments: Evaluate Exam: HIP LEFT 1 OR 2 VWS WITH PELVIS == HIP LEFT 1 OR 2 VWS WITH PELVIS HISTORY: Hip replacement, follow-up. COMPARISON: None. IMPRESSION: 1. Redemonstrated left hip prosthesis without visible complication. 2. Advanced right hip arthritis without significant change with advanced joint space narrowing. Unchanged lumbosacral fusion hardware. Electronically signed: Joe Matthew. Transcribed by: [email or web address], User Resident: Electronically Signed by: JOE MATTHEW @ 01/09/2022 04:45 PM Normal [facility] Comment on above: Order Comment: Evalu ate Vital Signs Date Time Vital Sign Value Performing Clinician Facility 11-28-2024 13:08-0500 Body height 162.6 cm Aida Reese [employer] [employer] [facility] Work Phone: [facility] 11-28-2024 13:08-0500 Body mass index (BMI) [Ratio] 40.51 kg/m2 Aida Reese [employer] Work Phone: [facility] 11-28-2024 13:08-0500 Body temperature 97.9 [degF] Aida Reese [employer] Work Phone: [facility] 11-28-2024 13:08-0500 Body weight 107.05 kg Aida Reese [employer] Work Phone: [facility] 11-28-2024 13:08-0500 Diastolic blood pressure 82 mm[Hg] Aida Reese [employer] Work Phone: [facility] 11-28-2024 13:08-0500 Heart rate 79 /min Aida Reese [employer] Work Phone: [facility] 11-28-2024 13:08-0500 Respiratory rate 20 /min Aida Reese [employer] Work Phone: [facility] 11-28-2024 13:08-0500 SaO2% (BldA) [Mass fraction] 96 % Aida Reese [employer] Work Phone: [facility] 11-28-2024 13:08-0500 Systolic blood pressure 148 mm[Hg] Aida Reese [employer] Work Phone: [facility] 11-12-2024 10:24-0500 Body mass index (BMI) [Ratio] 40.75 kg/m2 Aida Reese [employer] Work Phone: [facility] 11-12-2024 10:24-0500 Body temperature 98.71 [degF] Aida Reese [employer] Work Phone: [facility] 11-12-2024 10:24-0500 Body weight 107.68 kg Aida Reese [employer] Work Phone: [facility] 11-12-2024 10:24-0500 Diastolic blood pressure 78 mm[Hg] Aida Reese [employer] Work Phone: [facility] 11-12-2024 10:24-0500 Heart rate 68 /min Aida Reese [employer] Work Phone: [facility] 11-12-2024 10:24-0500 Respiratory rate 18 /min Aida Reese [employer] Work Phone: [facility] 11-12-2024 10:24-0500 SaO2% (BldA) [Mass fraction] 92 % Aida Reese [employer] Work Phone: [facility] 11-12-2024 10:24-0500 Systolic blood pressure 134 mm[Hg] Aida Reese [employer] Work Phone: [facility] 10-15-2024 14:29-0500 Blood Pressure Location MAG JOSE ALEJANDRO [facility] 10-15-2024 14:29-0500 Diastolic blood pressure 75 mm[Hg] MAG JOSE ALEJANDRO [facility] 10-15-2024 14:29-0500 Heart rate 64 /min MAG JOSE ALEJANDRO [facility] 10-15-2024 14:29-0500 Respiratory rate 20 /min MAG JOSE ALEJANDRO [facility] 10-15-2024 14:29-0500 Systolic blood pressure 147 mm[Hg] MAG JOSE ALEJANDRO [facility] 10-07-2024 14:22-0500 Body height 162.6 cm Aida Reese [employer]MENT Work Phone: [facility] 10-07-2024 14:22-0500 Body mass index (BMI) [Ratio] 40.85 kg/m2 Aida Reese [employer] Work Phone: [facility] 10-07-2024 14:22-0500 Body weight 107.96 kg Aida Reese [employer] Work Phone: [facility] 10-07-2024 14:22-0500 Diastolic blood pressure 72 mm[Hg] Aida Reese [employer] Work Phone: [facility] 10-07-2024 14:22-0500 Heart rate 64 /min Aida Reese [employer] Work Phone: [facility] 10-07-2024 14:22-0500 Respiratory rate 18 /min Aida Reese [employer] Work Phone: [facility] 10-07-2024 14:22-0500 SaO2% (BldA) [Mass fraction] 93 % Aida Reese [employer] Work Phone: [facility] 10-07-2024 14:22-0500 Systolic blood pressure 110 mm[Hg] Aida Reese [employer] Work Phone: [facility] 09-05-2024 12:53-0400 Body height 162.56 cm Aida Reese [employer] [employer]-C Work Phone: [facility] 09-05-2024 12:53-0400 Body weight 104.32 kg Aida Reese [employer]-C Work Phone: [facility] 08-19-2024 11:41-0400 Body mass index (BMI) [Ratio] 40.34 kg/m2 Aida Reese [employer] Work Phone: [facility] 08-19-2024 11:41-0400 Body temperature 97.59 [degF] Aida Reese [employer] Work Phone: [facility] 08-19-2024 11:41-0400 Body weight 106.59 kg Aida Reese [employer] Work Phone: [facility] 08-19-2024 11:41-0400 Diastolic blood pressure 76 mm[Hg] Aida Reese [employer] Work Phone: [facility] 08-19-2024 11:41-0400 Heart rate 57 /min Adia Reese [employer]MENT Work Phone: [facility] 08-19-2024 11:41-0400 SaO2% (BldA) [Mass fraction] 90 % Aida Reese [employer] Work Phone: [facility] 08-19-2024 11:41-0400 Systolic blood pressure 138 mm[Hg] Aida Reese [employer] Work Phone: [facility] 07-11-2024 08:25-0400 Body height 162.6 cm Aida Reese [employer] Work Phone: [facility] 07-11-2024 08:25-0400 Body mass index (BMI) [Ratio] 41.02 kg/m2 Aida Reese [employer] Work Phone: [facility] 07-11-2024 08:25-0400 Body temperature 98.1 [degF] Aida Reese [employer] Work Phone: [facility] 07-11-2024 08:25-0400 Body weight 108.41 kg Aida Reese [employer] Work Phone: [facility] 07-11-2024 08:25-0400 Diastolic blood pressure 74 mm[Hg] Aida Reese [employer] Work Phone: [facility] 07-11-2024 08:25-0400 Heart rate 83 /min Aida Reese [employer] Work Phone: [facility] Comment on above: 94% O2 07-11-2024 08:25-0400 Systolic blood pressure 130 mm[Hg] Aida Hartpatrick [employer] Work Phone: [facility] 03-14-2024 10:30-0400 Body height 165.1 cm Steph Galindo Work Phone: [facility] 03-14-2024 10:30-0400 Body mass index (BMI) [Ratio] 39 kg/m2 Steph Galindo Work Phone: [facility] 03-14-2024 10:30-0400 Body temperature 97.4 [degF] Steph Galindo Work Phone: [facility] 03-14-2024 10:30-0400 Body weight 106.36 kg Steph Galindo Work Phone: [facility] 03-14-2024 10:30-0400 Diastolic blood pressure 80 mm[Hg] Steph Galindo Work Phone: [facility] 03-14-2024 10:30-0400 Heart rate 77 /min Steph Galindo Work Phone: [facility] 03-14-2024 10:30-0400 Inhaled oxygen flow rate 3 L/min Steph Galindo Work Phone: [facility] 03-14-2024 10:30-0400 Respiratory rate 20 /min Steph Galindo Work Phone: [facility] 03-14-2024 10:30-0400 SaO2% (BldA) [Mass fraction] 92 % Steph Galindo Work Phone: [facility] 03-14-2024 10:30-0400 Systolic blood pressure 120 mm[Hg] Steph Collier Work Phone: [facility] 08-17-2023 09:20-0400 Body height 165.1 cm Herberth Joana Other [facility] Other 08-17-2023 09:20-0400 Body mass index (BMI) [Ratio] 38.1 kg/m2 Herberth Joana Other [facility] Other 08-17-2023 09:20-0400 Body temperature 98.8 [degF] Herberth Joana Other [facility] Other 08-17-2023 09:20-0400 Body weight 103.87 kg Herberth Joana Other [facility] Other 08-17-2023 09:20-0400 Diastolic blood pressure 85 mm[Hg] Herberth Joana Other [facility] Other 08-17-2023 09:20-0400 Respiratory rate 18 /min Herberth Joana Other [facility] Other 08-17-2023 09:20-0400 SaO2% (BldA) [Mass fraction] 94 % Herberth Joana Other [facility] Other 08-17-2023 09:20-0400 Systolic blood pressure 151 mm[Hg] Herberth Joana Other [facility] Other 03-02-2023 10:00-0400 Body height 165.1 cm Herberth Joana Other [facility] Other 03-02-2023 10:00-0400 Body mass index (BMI) [Ratio] 37.29 kg/m2 Herberth Joana Other [facility] Other 03-02-2023 10:00-0400 Body temperature 98.9 [degF] Herberth Joana Other [facility] Other 03-02-2023 10:00-0400 Body weight 101.65 kg Herberth Joana Other [facility] Other 03-02-2023 10:00-0400 Diastolic blood pressure 76 mm[Hg] Herberth Joana Other [facility] Other 03-02-2023 10:00-0400 Respiratory rate 20 /min Herberth Joana Other [facility] Other 03-02-2023 10:00-0400 SaO2% (BldA) [Mass fraction] 96 % Herberth Joana Other [facility] Other 03-02-2023 10:00-0400 Systolic blood pressure 136 mm[Hg] Herberth Joana Other [facility] Other 12-08-2022 09:30-0500 Diastolic blood pressure 59 mm[Hg] MD Shaikh Ohara Work Phone: [facility] 12-08-2022 09:30-0500 Heart rate 55 /min MD Shaikh Ohara Work Phone: [facility] 12-08-2022 09:30-0500 Respiratory rate 16 /min MD Shaikh Ohara Work Phone: [facility] 12-08-2022 09:30-0500 SaO2% (BldA) [Mass fraction] 96 % MD Shaikh Ohara Work Phone: [facility] 12-08-2022 09:30-0500 Systolic blood pressure 112 mm[Hg] MD Shaikh Ohara Work Phone: [facility] 12-08-2022 06:54-0500 Body height 162.56 cm MD Shaikh Ohara Work Phone: [facility] 12-08-2022 06:54-0500 Body temperature 98.2 [degF] MD Shaikh Ohara Work Phone: [facility] 12-08-2022 06:54-0500 Body weight 104.32 kg MD Shaikh Ohara Work Phone: [facility] 08-09-2022 11:00-0400 Body height 165.1 cm Herberth Joana Other [facility] Other 08-09-2022 11:00-0400 Body mass index (BMI) [Ratio] 37.87 kg/m2 Herberth Joana Other [facility] Other 08-09-2022 11:00-0400 Body temperature 97.2 [degF] Herberth Joana Other [facility] Other 08-09-2022 11:00-0400 Body weight 103.24 kg Herberth Joana Other [facility] Other 08-09-2022 11:00-0400 Diastolic blood pressure 88 mm[Hg] Herberth Joana Other [facility] Other 08-09-2022 11:00-0400 Respiratory rate 20 /min Herberth Joana Other [facility] Other 08-09-2022 11:00-0400 SaO2% (BldA) [Mass fraction] 95 % Herberth Joana Other [facility] Other 08-09-2022 11:00-0400 Systolic blood pressure 133 mm[Hg] Herberth Joana Other [facility] Other 11-17-2021 10:40-0500 Body height 165.1 cm Herberth Joana Other [facility] Other 11-17-2021 10:40-0500 Body mass index (BMI) [Ratio] 37.97 kg/m2 Herberth Joana Other [facility] Other 11-17-2021 10:40-0500 Body temperature 97.8 [degF] Herberth Joana Other [facility] Other 11-17-2021 10:40-0500 Body weight 103.51 kg Herberth Joana Other [facility] Other 11-17-2021 10:40-0500 Diastolic blood pressure 70 mm[Hg] Herberth Joana Other [facility] Other 11-17-2021 10:40-0500 Respiratory rate 18 /min Herberth Joana Other [facility] Other 11-17-2021 10:40-0500 SaO2% (BldA) [Mass fraction] 94 % Herberth Joana Other [facility] Other 11-17-2021 10:40-0500 Systolic blood pressure 130 mm[Hg] Herberth Joana Other [facility] Other 08-30-2021 13:15-0400 Body height 165.1 cm Rena Ginty Other [facility] Other 08-30-2021 13:15-0400 Body mass index (BMI) [Ratio] 36.61 kg/m2 Rena Ginty Other [facility] Other 08-30-2021 13:15-0400 Body temperature 98.7 [degF] Rena Ginty Other [facility] Other 08-30-2021 13:15-0400 Body weight 99.79 kg Rena Ginty Other [facility] Other 08-30-2021 13:15-0400 SaO2% (BldA) [Mass fraction] 90 % Rena Ginty Other [facility] Other Encounters Encounter Date Encounter Type Care Provider Facility Start: 12-17-2024 End: 12-17-2024 Office outpatient visit 15 minutes Jessica Lazo MD Work Phone: [facility] Comment on above: Seborrheic keratosis (Primary Dx); History of SCC (squamous cell carcinoma) of skin; Lentigines Start: 12-17-2024 End: 12-17-2024 ambulatory JESSICA LAZO Not Available Start: 12-17-2024 End: 12-17-2024 Bamboo flowsheet Ramin KING Work Phone: [facility] Start: 12-17-2024 End: 12-17-2024 Bamboo flowsheet Ramin KING Work Phone: [facility] Start: 12-17-2024 End: 12-17-2024 ambulatory RAMIN BOWERS Not Available Start: 12-17-2024 End: 12-17-2024 Office outpatient visit 25 minutes Ramin KING Work Phone: [facility] Comment on above: Acute pain of right knee (Primary Dx); History of total right knee replacement; Right hip pain; Arthritis of right hip Start: 12-15-2024 End: 12-16-2024 Refill Aida Reese [employer] Work Phone: [facility] Comment on above: Moderate episode of recurrent major depressive disorder (CMS/HCC) Start: 12-13-2024 End: 12-13-2024 Bamboo flowssamy Lazo MD Work Phone: [facility] Start: 12-13-2024 End: 12-13-2024 Bamvandanao flowssamy Lazo MD Work Phone: [facility] Start: 12-13-2024 End: 12-13-2024 Office outpatient visit 10 minutes Jessica Lazo MD Work Phone: [facility] Comment on above: Nevus lipomatosus cu taneus superficialis (Primary Dx); Squamous cell carcinoma of skin of chest Start: 12-13-2024 End: 12-13-2024 ambulatory JESSICA LAZO Not Available Start: 12-05-2024 End: 12-09-2024 Refill Aida Reese [employer] Work Phone: [facility] Comment on above: Restless leg syndrom e Start: 11-30-2024 End: 12-02-2024 Refill Aida Reese [employer] Work Phone: [facility] Comment on above: Gastroesophageal ref lux disease without esophagitis Start: 11-28-2024 End: 11-28-2024 Bamboo flowsheet Aida Reese [employer]MENT Work Phone: [facility] Start: 11-28-2024 End: 11-28-2024 Bamboo flowsheet Aida Reese [employer] Work Phone: [facility] Start: 11-28-2024 End: 11-28-2024 ambulatory AIDA REESE Not Available Start: 11-28-2024 End: 11-28-2024 Transitional care manage srvc 14 day discharge Aida Reese [employer] Work Phone: [facility] Comment on above: Pulmonary emphysema, unspecified emphysema type (CMS/HCC) (Primary Dx) Start: 11-12-2024 End: 11-12-2024 Bamboo flowsheet Aida Reese [employer] Work Phone: [facility] Start: 11-12-2024 End: 11-12-2024 Bamboo flowsheet Aida Negronk [employer]MENT Work Phone: [facility] Start: 11-12-2024 End: 11-12-2024 Office outpatient visit 15 minutes Aida Reese [employer] Work Phone: [facility] Comment on above: Chronic obstructive pulmonary disease with acute lower respiratory infection (CMS/HCC) (Primary Dx); Primary HSV infection of mouth Start: 11-12-2024 End: 11-12-2024 ambulatory AIDA NEGRONK Not Available Start: 10-26-2024 End: 10-28-2024 Refill Aida Reese [employer]MENT Work Phone: [facility] Comment on above: Moderate episode of recurrent major depressive disorder (CMS/HCC); Restless leg syndrome Start: 10-17-2024 End: 10-17-2024 ambulatory [facility] Start: 10-15-2024 End: 10-15-2024 ambulatory MAG BLOUNT Facility:[facility] Start: 10-15-2024 End: 10-15-2024 Lab Drop off MAG BLOUNT [facility] Start: 10-15-2024 End: 10-15-2024 Refill Aida Reese [employer] Work Phone: [facility] Comment on above: Moderate episode of recurrent major depressive disorder (CMS/HCC) Start: 10-15-2024 End: 10-15-2024 ambulatory MAG BLOUNT [facility] Start: 10-15-2024 End: 10-15-2024 Patient encounter procedure MAG BLOUNT [facility] Start: 10-12-2024 End: 10-14-2024 Refill Aida Reese [employer] Work Phone: [facility] Comment on above: Urge incontinence Start: 10-11-2024 End: 10-11-2024 Bamboo flowsheet Jayna Northeim PA Work Phone: [facility] Start: 10-11-2024 End: 10-11-2024 Bamboo flowsheet Jayna Northeim PA Work Phone: [facility] Start: 10-11-2024 End: 10-11-2024 Patient encounter procedure Jayna Northeim PA Work Phone: [facility] Comment on above: Neoplasm of unspecif ied behavior of bone, soft tissue, and skin (Primary Dx) Start: 10-11-2024 End: 10-11-2024 ambulatory JAYNA NORTHEIM Not Available Start: 10-08-2024 ambulatory MAG BLOUNT [facility] Start: 10-07-2024 End: 10-07-2024 Office outpatient visit 15 minutes Aida Reese [employer] Work Phone: [facility] Comment on above: Urge incontinence (P rimary Dx); Morbid obesity with BMI of 40.0-44.9, adult (CMS/HCC); 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; Stage 3a chronic kidney disease (HCC) (CMS/HCC); Chronic respiratory failure with hypoxia (CMS/HCC) Start: 10-07-2024 End: 10-07-2024 ambulatory AIDA REESE Not Available Start: 10-07-2024 End: 10-07-2024 Bamboo flowsheet Aida Brannonzpatrick [employer]PARTMENT Work Phone: [facility] Start: 10-07-2024 End: 10-07-2024 Bamboo flowsheet Aida Vidaltrick [employer]MENT Work Phone: [facility] Start: 09-25-2024 End: 09-26-2024 Refill Aida Brannonzpatrick [employer] [employer] Work Phone: [facility] Comment on above: Restless leg syndrom e Start: 09-12-2024 End: 09-12-2024 ambulatory Aida Vidaltrick [facility]-C Work Phone: [facility] Work Phone: Start: 09-12-2024 End: 09-12-2024 Departed Referred Aida Reese [employer]-C Work Phone: [facility] Start: 09-10-2024 End: 09-10-2024 Orders Only Aida Reese [employer]MENT Work Phone: [facility] Comment on above: Vaginal guero (Aleja joy Dx) Start: 09-05-2024 End: 09-05-2024 Departed Referred Aida Reese [employer] [facility]MENT-C Work Phone: [facility] Work Phone: Start: 09-05-2024 End: 09-05-2024 Patient encounter procedure [facility]-C Aida Hartpatrick Work Phone: [facility] Work Phone: Start: 09-05-2024 End: 09-05-2024 ambulatory [facility]C Aida Tenorio Reese Work Phone: [facility] Work Phone: Start: 09-03-2024 End: 09-03-2024 Refill Rukhsana Krish RUTLEDGE [facility] Comment on above: Gastroesophageal ref lux disease without esophagitis Start: 08-19-2024 End: 08-19-2024 Bamboo flowsheet Aida Reese [employer]PARTMENT Work Phone: [facility] Start: 08-19-2024 End: 08-19-2024 Bamboo flowsheet iAda Reese [employer]MENT Work Phone: [facility] Start: 08-19-2024 End: 08-19-2024 Transitional care manage srvc 7 day discharge Aida Reese [employer] Work Phone: [facility] Comment on above: Moderate persistent asthma with exacerbation (CMS/HCC) (Primary Dx); Diarrhea, unspecified type Start: 08-19-2024 End: 08-19-2024 ambulatory AIDA REESE Not Available Start: 08-12-2024 End: 08-13-2024 Clinisync Result Encounter Shaikh Lev DRAPER Work Phone: [facility] Unsolicited Start: 08-12-2024 End: 08-13-2024 Clinisync Result Encounter Shaikh Lev DRAPER Work Phone: [facility] Unsolicited Start: 08-12-2024 End: 08-27-2024 Refill Aida Reese [employer]MENT Work Phone: [facility] Comment on above: Restless leg syndrom e Start: 08-08-2024 End: 08-12-2024 Non-patient / Non-visit [facility]C Aida Reese Work Phone: [facility] Work Phone: Start: 08-08-2024 End: 08-12-2024 Clinisync Result Encounter Generic External Data Provider [facility] Unsolicited Start: 08-08-2024 End: 08-12-2024 Clinisync Result Encounter Generic External Data Provider [facility] Unsolicited Start: 07-17-2024 End: 07-17-2024 Refill Tapan Zazueta MD Work Phone: [facility] Comment on above: Moderate episode of recurrent major depressive disorder (HCC) (CMS/HCC); Urge incontinence Start: 07-16-2024 End: 07-17-2024 Refill Tony Butts MA [facility] Comment on above: Chronic bilateral lo w back pain without sciatica Start: 07-15-2024 End: 07-15-2024 ambulatory Jayshree Vargas MD Facility:[facility] Start: 07-12-2024 End: 07-12-2024 Clinisync Result Encounter Aida Vidaltrick [employer] Work Phone: [facility] Unsolicited Start: 07-12-2024 End: 07-12-2024 Clinisync Result Encounter Aida Reese [employer]MENT Work Phone: [facility] Unsolicited Start: 07-11-2024 End: 07-11-2024 Bamboo flowsheet Aida Reese [employer]PARTMENT Work Phone: [facility] Start: 07-11-2024 End: 07-11-2024 Bamboo flowsheet Aida Reese [employer]PARTMENT Work Phone: [facility] Start: 07-11-2024 End: 07-11-2024 ambulatory [facility] Start: 07-11-2024 End: 07-11-2024 Office outpatient visit 25 minutes Aida Reese [employer]MENT Work Phone: [facility] Comment on above: Benign essential HTN (CMS/HCC) (Primary Dx); Chronic heart failure with preserved ejection fraction (CMS/HCC); Severe persistent asthma without complication (CMS/HCC); Moderate mixed hyperlipidemia not requiring statin therapy (CMS/HCC); Morbid obesity with BMI of 40.0-44.9, adult (CMS/HCC) Start: 07-11-2024 End: 07-11-2024 ambulatory AIDA REESE Not Available Start: 07-02-2024 End: 07-02-2024 ambulatory [facility] Start: 06-29-2024 Non-patient / Non-visit [facility]-C Arielle chase Mary Ann Work Phone: [facility] Work Phone: Start: 06-28-2024 End: 07-02-2024 Clinisync Result Encounter Generic External Data Provider [facility] Unsolicited Start: 06-28-2024 End: 07-02-2024 Clinisync Result Encounter Generic External Data Provider [facility] Unsolicited Start: 06-25-2024 ambulatory [facility] Start: 06-24-2024 End: 06-24-2024 ambulatory Jayshree Vargas MD Facility:[facility] Start: 06-21-2024 End: 06-21-2024 ambulatory [facility] Start: 06-12-2024 End: 06-12-2024 ambulatory AIDA REESE Not Available Start: 05-13-2024 End: 05-13-2024 ambulatory [facility] Start: 05-06-2024 End: 05-06-2024 ambulatory Jayshree Vargas MD [facility] Start: 04-17-2024 End: 04-17-2024 ambulatory SHAIKH LEV Not Available Start: 04-15-2024 End: 04-15-2024 ambulatory Jayshree Vargas MD Facility:[facility] Start: 04-11-2024 End: 04-11-2024 ambulatory SHAIKH LEV Not Available Start: 04-03-2024 End: 04-03-2024 ambulatory SHAIKH LEV Not Available Start: 03-27-2024 End: 03-27-2024 ambulatory SHAIKH LEV Not Available Start: 03-14-2024 End: 03-14-2024 ambulatory Steph Collier Work Phone: [facility] Work Phone: Start: 03-14-2024 End: 03-14-2024 Patient encounter procedure Steph Collier Work Phone: [facility] Work Phone: Start: 03-06-2024 Non-patient / Non-visit Steph Collier Work Phone: [facility] Work Phone: Start: 02-26-2024 End: 02-26-2024 ambulatory MESSER FAWWAD Not Available Start: 02-19-2024 End: 02-19-2024 ambulatory Jayshree Vargas MD Facility: [facility] Start: 02-15-2024 End: 02-15-2024 ambulatory KAYLENE CALLIE Not Available Start: 01-25-2024 End: 01-25-2024 ambulatory SHAIKH MICHAELWWAD Not Available Start: 12-28-2023 End: 12-28-2023 ambulatory MESSER FAWWAD Not Available Start: 12-18-2023 End: 12-18-2023 ambulatory Jayshree Vargas MD Facility: [facility] Start: 11-13-2023 End: 11-13-2023 ambulatory Jayshree Vargas MD Facility: [facility] Start: 11-06-2023 Patient encounter procedure Generic Provider [facility] Start: 10-09-2023 End: 10-09-2023 ambulatory Jayshree Vargas MD Facility: [facility] Start: 09-07-2023 End: 09-07-2023 ambulatory Herberth Joana Other [facility] [employer] Other Start: 09-07-2023 Telephone encounter Herberth Joana [facility] Start: 08-28-2023 End: 08-28-2023 ambulatory Herberth Joana Other [facility] Other Start: 08-28-2023 Telephone encounter Herberth Joana [facility] Nephrology Start: 08-21-2023 End: 08-21-2023 ambulatory Jayshree Vargas MD Facility: [facility] Start: 08-17-2023 End: 08-17-2023 ambulatory Herberth Joana Other [employer] Other Start: 08-17-2023 Office outpatient vi sit 25 minutes Herberth Joana [facility] Start: 04-04-2023 End: 04-04-2023 ambulatory SHAIKH Dimitry OHARA Facility:[facility] Start: 03-24-2023 End: 03-25-[address] STEPH GRANADOS Facility:[facility] Start: 03-02-2023 End: 03-02-2023 ambulatory Herberth Joana Other [employer] Other Start: 03-02-2023 Office outpatient vi sit 25 minutes Herberth Joana [facility] Start: 02-25-2023 End: 02-26-2023 ambulatory HERBERTH JOANA Facility:[facility] Start: 02-22-2023 End: 02-23-2023 ambulatory BO MCCLAIN . Facility:[facility] Start: 12-15-2022 End: 12-16-[address] JACK HALL . Facility:[facility] Start: 12-08-2022 End: 12-08-2022 Admission to same day surgery center MD Shaikh Ohara Work Phone: [facility] Work Phone: Start: 12-08-2022 End: 12-08-2022 ambulatory MD Shaikh Ohara Work Phone: [facility] Work Phone: Start: 11-11-2022 End: 11-11-[address] JACK HALL . Facility:[facility] Start: 11-09-2022 End: 11-09-2022 ambulatory Azkatherine Gonzalezs Other [employer] Other Start: 11-09-2022 Telephone encounter Azkatherine Gonzalezs [facility] Start: 08-19-2022 End: 08-20-2022 ambulatory HERBERTH JOANA Facility:[facility] Start: 08-09-2022 End: 08-09-2022 ambulatory Herberth Joana Other [employer] Other Start: 08-09-2022 Office outpatient vi sit 10 minutes Herberth Joana [facility] Start: 08-09-2022 Telephone encounter Herberth Joana [facility] Start: 08-05-2022 Telephone encounter Herberth Joana [facility] Start: 08-05-2022 End: 08-06-2022 ambulatory HERBERTH JOANA Mcclure [employer] Other Start: 07-08-2022 End: 07-08-2022 ambulatory Gato Domingo Other [facility] Other Start: 07-08-2022 Telephone encounter Gato Cesar [facility] Start: 07-05-2022 End: 07-06-2022 ambulatory MESSER H FAWWAD Facility:[facility] Start: 06-08-2022 End: 06-09-2022 ambulatory MESSER H FAWWAD Facility:[facility] Start: 06-07-2022 End: 06-07-2022 ambulatory MESSER H FAWWAD Facility:[facility] Start: 01-24-2022 End: 01-25-2022 ambulatory PHYSICIAN UNKNOWN Facility:[facility] Start: 11-17-2021 End: 11-17-2021 ambulatory Herberth Joana Other [employer] Other Start: 11-17-2021 Office outpatient vi sit 15 minutes Herberth Joana [facility] Start: 08-30-2021 Office outpatient vi sit 15 minutes Rena Ginty [facility] Start: 09-11-2020 End: 09-11-2020 Chart abstracting Miguelito Buck Work Phone: Hematology/Oncology Start: 09-11-2020 End: 09-11-2020 Patient encounter procedure External Provider [facility] Start: 09-11-2020 Results Only External Provider Exter nal-[facility] Start: 09-30-2019 End: 09-30-2019 Patient encounter procedure [facility] Start: 07-07-2017 End: 07-07-2017 Admission to day surgery [facility] Start: 05-24-2004 Evaluation and management of inpatient [facility] [place] Start: 04-26-2004 Evaluation and management of inpatient [facility] [place] Procedures Date Procedure Procedure Detail Performing Clinician Start: 12-17-2024 End: 12-17-2024 Radex hip unilateral with pelvis 2-3 views Ramin KING Work Phone: Start: 12-13-2024 DESTRUCTION OF LESION Mir Lazo MD Work Phone: Start: 10-11-2024 SKIN / NAIL BIOPSY Sotero KING Work Phone: Start: 08-12-2024 Epithelial cells LM Ql (Urine sed) Shaikh Lev DRAPER Work Phone: Start: 08-12-2024 GRAM STAIN EVALUATION S lebron Ohara MD Work Phone: Start: 08-12-2024 Leukocytes [#/volume ] in Blood Shaikh eLv DRAPER Work Phone: Start: 08-12-2024 LOWER RESPIRATORY CULTURE Shaikh Lev DRAPER Work Phone: Start: 08-12-2024 RESULT 1 Shaikh Beto barton MD Work Phone: Start: 08-12-2024 RESULT 2 Shaikh Beto barton MD Work Phone: Start: 08-12-2024 RESULT 3 Shaikh Beto barton MD Work Phone: Start: 08-12-2024 RESULT 4 Shaikh Beto barton MD Work Phone: Start: 08-08-2024 BLOOD CULTURE 1 Generic External Data Provider Start: 08-08-2024 BLOOD CULTURE 2 Generic External Data Provider Start: 07-12-2024 ALL CBC WITH AUTO DIFF Aida Reese [employer]ER [employer]KING [employer]PARTMENT Work Phone: Start: 06-28-2024 BLOOD CULTURE 2 Generic External Data Provider Start: 06-28-2024 BLOOD CULTURE 1 Generic External Data Provider Start: 02-29-2024 Mammography Generic Pr ovider Start: 12-08-2022 End: 12-08-2022 Colonoscopy MD Shaikh Ohara Work Phone: Start: 09-11-2020 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 Professional Development Manager al Provider Start: 09-11-2020 EXTERNAL LAB External P rovider Start: 09-11-2020 EXTERNAL PROCEDURE Exte rnal Provider Start: 09-30-2019 Ultrasonography of b ilateral kidneys Steph Roshon Arthroplasty of knee MARIO BLOUNT Colonoscopy MAG BLOUNT Extraction of cataract ESTHER BLOUNT Insertion of hip prosthesis MAG BLOUNT Ligation of fallopian tube J ALEJANDRO BLOUNT Plan of Treatment Date Care Activity Detail Author Start: 12-08-2032 Screening for malignant neoplasm of colon [facility] Start: 12-15-2026 End: 12-15-2026 Patient encounter procedure 12/15/2026 9:00 AM EST Office Visit [facility] [address] [place] [address] Ramin Bowers, PA [address] [place] [address] [facility] Start: 06-17-2025 End: 06-17-2025 Patient encounter procedure 06/17/2025 3:05 PM EDT Office Visit [facility] [address] [place] [phone] Jessica Lazo MD [address] [place] [address] [facility] Start: 02-28-2025 Screening for malignant neoplasm of breast Mammogram [facility] Start: 01-13-2025 ambulatory Ambulatory Facility:[facility] Start: 01-09-2025 End: 01-09-2025 Patient encounter procedure 01/09/2025 1:40 PM EST Office Visit [facility] [address] [place] [address] Kaylene López NP [address] [place] [phone] [facility] Start: 01-09-2025 End: 01-09-2025 Patient encounter procedure 01/09/2025 8:30 AM EST Office Visit [facility] [address] [place] [address] Aida Reese NP [address] [place] [address] [facility] Start: 12-17-2024 End: 12-17-2024 Patient encounter procedure [facility] Start: 12-13-2024 End: 12-13-2024 Patient encounter procedure [facility] Comment on above: Arrived Start: 12-09-2024 End: 12-09-2024 Patient encounter procedure 12/09/2024 2:30 PM EST Office Visit [facility] [address] [place] [address] Aida Reese NP [address] [place] [address] [facility] Start: 11-20-2024 End: 11-20-2024 Patient encounter procedure [facility] Start: 11-15-2024 End: 11-15-2024 Patient encounter procedure 11/15/2024 10:30 AM EST Office Visit [facility] [address] [place] [address] Jayna Goode PA [address] [place] [address] [facility] Start: 11-12-2024 End: 11-12-2025 XR Chest 2 Views XR chest 2 views Imaging Routine Chronic obstructive pulmonary disease with acute lower respiratory infection (CMS/HCC) Expected: 11/12/2024, Expires: 11/12/2025 [facility] Work Phone: Comment on above: Expected: 11/12/2024, Expires: Start: 11-12-2024 End: 11-12-2024 Patient encounter procedure 11/12/2024 10:30 AM EST Office Visit [facility] [address] [place] [address] Aida Reese NP [address] [place] [address] Arrived [facility] Comment on above: Arrived Start: 10-11-2024 End: 10-11-2024 Patient encounter procedure 10/11/2024 8:50 AM EST Office Visit [facility] [address] [place] [address] Jayna oGode PA [address] [place] [address] 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 [facility] Comment on above: 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 Start: 10-09-2024 End: 10-09-2024 Patient encounter procedure 10/09/2024 9:00 AM EST Office Visit [facility] [address] [place] [address] Aida Reese, PREPARER [employer]KING [employer]PARTMENT [address] [place] [address] [facility] Start: 10-07-2024 End: 10-07-2024 Patient encounter procedure 10/07/2024 2:30 PM EST Office Visit [facility] [address] [place] [phone] Aiad Reese, RIKKI [address] [place] [phone] Arrived [facility] Comment on above: Arrived Start: 09-12-2024 Phacoemulsification of cataract with intraocular lens implantation OR Cataract PHACO W/IOL/Vitrectomy (Left) [facility] Start: 08-19-2024 End: 08-19-2025 Clostridioides difficile toxin A+B tcdA+tcdB genes [Presence] in Stool by KAYLEE with probe detection Clostridium difficile,EIA Microbiology Routine Diarrhea, unspecified type Expected: 08/19/2024 (Approximate), Expires: 08/19/2025 [facility] Work Phone: Comment on above: Expected: 08/19/2024 (Approximate), Expi res: 08/19/2025 Start: 08-19-2024 End: 08-19-2024 Patient encounter procedure [facility] Comment on above: Arrived Start: 07-11-2024 End: 07-11-2025 CBC W Auto Differential panel - Blood CBC and differential Lab Routine Benign essential HTN (CMS/HCC) Chronic heart failure with preserved ejection fraction (CMS/HCC) Moderate mixed hyperlipidemia not requiring statin therapy (CMS/HCC) Morbid obesity with BMI of 40.0-44.9, adult (CMS/HCC) Expected: 07/11/2024 (Approximate), Expires: 07/11/2025 [facility] Comment on above: Expected: 07/11/2024 (Approximate), Expi res: 07/11/2025 Start: 07-11-2024 End: 07-11-2025 Comprehensive metabolic 2000 panel - Serum or Plasma Comprehensive metabolic panel Lab Routine Benign essential HTN (CMS/HCC) Chronic heart failure with preserved ejection fraction (CMS/HCC) Moderate mixed hyperlipidemia not requiring statin therapy (CMS/HCC) Morbid obesity with BMI of 40.0-44.9, adult (CMS/HCC) Expected: 07/11/2024 (Approximate), Expires: 07/11/2025 [facility] Comment on above: Expected: 07/11/2024 (Approximate), Expi res: 07/11/2025 Start: 07-11-2024 End: 07-11-2025 Lipid 1996 panel - Serum or Plasma Lipid panel Lab Routine Moderate mixed hyperlipidemia not requiring statin therapy (CMS/HCC) Expected: 07/11/2024 (Approximate), Expires: 07/11/2025 [facility] Comment on above: Expected: 07/11/2024 (Approximate), Expi res: 07/11/2025 Start: 07-11-2024 End: 07-11-2025 Microalbumin/Creatinine panel in random Urine Microalbumin / creatinine urine ratio Lab Routine Benign essential HTN (CMS/HCC) Expected: 07/11/2024 (Approximate), Expires: 07/11/2025 [facility] Work Phone: Comment on above: Expected: 07/11/2024 (Approximate), Expi res: 07/11/2025 Start: 07-11-2024 End: 07-11-2024 Patient encounter procedure [facility] Comment on above: Benign essential HTN (CMS/HCC) (Primary Dx); Chronic heart failure with preserved ejection fraction (CMS/HCC); Severe persistent asthma without complication (CMS/HCC) Start: 07-07-2024 Influenza vaccination Influenza Vaccine (#1) [facility] Start: 12-08-2022 [facility] Start: 07-07-2020 Influenza vaccination INFLUENZA (#1) [facility] Start: 2006 SHINGRIX VACCINE (1 of 2) SHINGRIX VACCINE (1 of 2) [facility] Start: 2006 Tuberculosis screening COLORECTAL CANCER SCREENING,SEE MODIFIER [facility] Start: 2001 DIABETES SCREEN DIABETES SCREEN [facility] Start: 2001 LIPID SCREEN LIPID SCREEN [facility] Start: 1996 Mammography MAMMOGRAM [facility] Start: 1986 HPV TESTING HPV TESTING [facility] Start: 1977 PAP TESTING PAP TESTING [facility] Start: 1975 Urine microalbumin profile DTAP,TDAP,TD (1 - Tdap) [facility] Start: 1974 HEPATITIS C SCREENING HEPATITIS C SCREENING [facility] Start: 1974 HIV SCREENING HIV SCREENING [facility] Start: 1956 Screening for malignant neoplasm of colon [facility] BLOOD CULTURE 1 BLOOD CULTURE 1 Lab Routine 08/08/2024 8:30 PM EDT [facility] BLOOD CULTURE 1 BLOOD CULTURE 1 Lab Routine 06/28/2024 8:20 PM EDT [facility] BLOOD CULTURE 2 BLOOD CULTURE 2 Lab Routine 08/08/2024 8:20 PM EDT [facility] BLOOD CULTURE 2 BLOOD CULTURE 2 Lab Routine 06/28/2024 8:21 PM EDT [facility] Dermatopathology exam Dermatopat hology exam Pathology and Cytology Timed Neoplasm of unspecified behavior of bone, soft tissue, and skin Release Upon Ordering for 1 Occurrences starting 10/11/2024 [facility] Work Phone: Comment on above: Release Upon Ordering for 1 Occurrences starting 10/11/2024 LOWER RESPIRATORY CULTURE LOWER RESPIRATORY CULTURE Lab Routine 08/12/2024 9:50 AM EDT [facility] Work Phone: Patient Education Colon Polypect shahram Hemorrhoids (DC) Diverticulosis (DC) [facility] Immun[facility] Immunization Date Immunization Notes Care Provider Michael charles 09-06-2024 influenza virus vaccine, unspecified formulation Aida Reese NP Work Phone: [facility] 08-26-2023 Influenza, High-dose Seasonal, Quadrivalent, Preservative Free Generic Provider [facility] 08-26-2023 influenza virus vaccine, unspecified formulation Generic Provider [facility] 08-18-2023 RSV, recombinant, protein subunit RSVpreF, adjuvant reconstitu, 120mcg/0.5mL, PF (Arexvy) Generic [facility] 08-09-2023 Pneumococcal Conjuga te PCV 20 Generic Provider [facility] 11-01-2022 zoster vaccine recombinant Generic Provider [facility] 08-27-2022 zoster vaccine recombinant Generic Provider [facility] 08-04-2022 Influenza, High-dose Seasonal, Quadrivalent, Preservative Free Generic Provider [facility] 08-06-2021 Influenza, High-dose Seasonal, Quadrivalent, Preservative Free Generic Provider [facility] 08-07-2020 influenza, injectabl e, quadrivalent, preservative free Generic Provider [facility] 08-09-2019 influenza, injectabl e, quadrivalent, preservative free Generic Provider [facility] 10-19-2018 pneumococcal polysaccharide vaccine, 23 valent Generic Provider [facility] 08-08-2018 influenza, injectabl e, quadrivalent, preservative free Generic Provider [facility] 07-18-2018 Depo-Medrol 40 mg Rena Gint y Other [facility] Other 01-31-2018 Depo-Medrol 40 mg Rena Gint y Other [facility] Other 08-10-2017 influenza, injectabl e, quadrivalent, preservative free Generic Provider [facility] 08-09-2017 influenza virus vaccine, split virus (incl. purified surface antigen) Generic Provider [facility] 08-09-2017 influenza virus vaccine, unspecified formulation Steph Collier Work Phone: [facility] 08-09-2017 influenza, seasonal, injectable, preservative free Rena Ginty Other [employer] Other 09-02-2009 novel [id number], preservative-free, injectable Generic Provider [facility] Healthcare Payers Date Payer Category Payer Medicare [id number] 2024 Medicare [id number] 2023 Medicare [employer]ARE MEDICAR E [employer] [id number] 2023-Present [address] [place] [address] [id number] 2023 Medicare (Managed Care) 1.2. [id number] 2022 Unknown 2021 Medicare [id number] 2019 Medicaid MEDICAID [facility] MEDICAID [id number] 2019-Present Medicaid [id number] 2016 Medicare MEDICARE MEDICAR E A AND B [id number] 2016-Present [place] Medicare [id number] 1959 Unknown [id number] 1956 Unknown [id number] 2.16.840.1.360516.3.579.2.6 47 1956 Unknown [id number] 2.16.840.1.296538.3.579.2.5 93 1956 Unknown [id number] 2.16.840.1.608647.3.579.2.5 93 1956 Unknown [id number] 2.16.840.1.691355.3.579.2.5 93 1956 Unknown [id number] 2.16.840.1.197412.3.579.2.5 93 1956 Unknown [id number] 2.16.840.1.283351.3.579.2.5 93 1956 Unknown [id number] 2.16.840.1.792909.3.579.2.5 93 1956 Unknown [id number] 2.16.840.1.076806.3.579.2.5 93 1956 Unknown [id number] 2.16.840.1.437795.3.579.2.5 93 1956 Unknown [id number] 2.16.840.1.959575.3.579.2.5 93 1956 Unknown [id number] 2.16.840.1.825142.3.579.2.5 93 1956 Unknown [id number] 2.16.840.1.396623.3.579.2.5 93 1956 Unknown [id number] 2.16.840.1.257787.3.579.2.1 96 1956 Unknown [id number] 2.16.840.1.937967.3.579.2.1 1956 Unknown [id number] 2.16.840.1.608208.3.579.2.1 96 1956 Unknown [id number] 2.16.840.1.357731.3.579.2.1 1956 Unknown [id number] 2.16.840.1.581743.3.579.2.1 1956 Unknown [id number] 2.16.840.1.894069.3.579.2.1 1956 Unknown [id number] 2.16.840.1.804988.3.579.2.1 96 1956 Unknown [id number] 2.16.840.1.645251.3.579.2.1 1956 Unknown [id number] 2.16.840.1.231749.3.579.2.1 1956 Unknown [id number] 2.16.840.1.039173.3.579.2.7 27 1956 Unknown [id number] 2.16.840.1.739900.3.579.2.7 1956 Unknown [id number] 2.16.840.1.333903.3.579.2.7 1956 Unknown [id number] 2.16.840.1.021841.3.579.2.1 259 1956 Unknown [id number] 2.16.840.1.146098.3.579.2.1 1956 Unknown [id number] 2.16.840.1.462982.3.579.2.1 1956 Unknown [id number] 2.16.840.1.637399.3.579.2.1 1956 Unknown [id number] 2.16.840.1.660292.3.579.2.1 1956 Unknown [id number] 2.16.840.1.259817.3.579.2.1 1956 Unknown [id number] 2.16.840.1.665607.3.579.2.1 1956 Unknown [id number] 2.16.840.1.105012.3.579.2.1 1956 Unknown [id number] 2.16.840.1.750786.3.579.2.1 1956 Unknown [id number] 2.16.840.1.943214.3.579.2.1 1956 Unknown [id number] 2.16.840.1.725501.3.579.2.1 1956 Unknown [id number] 2.16.840.1.776732.3.579.2.1 1956 Unknown [id number] 2.16.840.1.060034.3.579.2.1 1956 Unknown [id number] 2.16.840.1.985552.3.579.2.1 1956 Unknown [id number] 2.16.840.1.019462.3.579.2.1 259 1956 Unknown [id number] 2.16.840.1.688546.3.579.2.1 259 1956 Unknown [id number] 2.16.840.1.440960.3.579.2.1 259 1956 Unknown [id number] 2.16.840.1.900232.3.579.2.1 259 1956 Unknown [id number] 2.16.840.1.089062.3.579.2.1 259 1956 Unknown [id number] 2.16.840.1.969096.3.579.2.1 259 Medicaid [id number] Medicare [id number] Self-pay Self Pay [id number] Unknown [id number] Social History Date Type Detail Facility Tobacco smoking stat us [facility] Unknown if ever smoked [facility] Start: 1955 Sex Assigned At Female F [facility] Start: 09-11-2020 End: 12-05-2023 Tobacco smoking status NHIS Never smoker [facility] Start: 09-11-2020 End: 12-05-2023 Tobacco use and exposure Never used [facility] Start: 09-11-2020 End: 12-18-2024 Alcohol intake Lifetime non-drinker (finding) [facility] Start: 09-11-2020 History SDOH Alcohol Frequency 1 [facility] Start: 1955 Sex Assigned At Not on file [facility] Start: 10-26-2023 End: 11-25-2024 Sex Assigned At [facility] Start: 10-26-2023 End: 11-25-2024 History of Social function [facility] Within the last year , have you been afraid of your partner or ex-partner? No [facility] Are you now , , , , never or living with a partner? [facility] How often to you hav e a drink containing alcohol? Never [facility] How many standard drinks containing alcohol do you have on a typical day? Patient does not drink [facility] How hard is it for y ou to pay for the very basics like food, housing, medical care, and heating Not very hard [facility] Do you feel stress - tense, restless, nervous, or anxious, or unable to sleep at night because your mind is troubled all the time - these days [OSQ] To some extent [facility] (I/We) worried wheelena er (my/our) food would run out before (I/we) got money to buy more. Never true [facility] Start: 10-04-2023 Alcohol Comment caffeine: more than 4 cups per day [facility] Start: 11-13-2024 Sex Female (finding) [facility] How hard is it for y ou to pay for the very basics like food, housing, medical care, and heating Somewhat hard [facility] Do you feel stress - tense, restless, nervous, or anxious, or unable to sleep at night because your mind is troubled all the time - these days [OSQ] Only a little [facility] NEGATED: Highlighted rowStart: NINF History of tobacco use Passive smoker [facility] Goals Date Patient Goal Desired Activity /State Personal health goal Functional Status Date Assessment Result Facility 10-15-2024 Functional Status N/A [facility] Clinical Notes 08-30-2021 to 12-17-2024 Jessica Lazo MD - 12/17/2024 3:00 PM CHRISTINE Pina - 12/17/2024 8:30 AM Anna Lazo MD - 12/13/2024 11:00 AM Tejinder Reese NP - 11/28/2024 1:37 PM EST Note Date & Type Note Facility 12-17-2024 History of Present illness Narrative Skin Check Location: Patient requests a skin examination of the face and arms Dermatologic history: history of Squamous Cell Carcinoma Last visit: First skin check Established patient All pertinent medical history, medications, and allergies were reviewed. General Exam: alert, oriented to person, place, and time, normal affect, well appearing uses a walker Accompanied by son A complete skin exam was offered, pt declined. Areas not examined despite medical recommendation: From the waist down, under shirt Scalp, Examined Head, Face Examined Neck Examined Chest Not examined Back Not examined Abdomen Not examined Right arm Examined Left arm Examined Hands Examined Digits,nails: Examined Lymphatics: Not examined 1. History of SCC (squamous cell carcinoma) of skin Right Breast No evidence of recurrence at SCC scar. The patient was counseled that scars from excisional sites of nonmelanoma skin cancers should be monitored closely for recurrence. The patient was instructed to contact the office for any new, changing, or symptomatic moles. The patient was also instructed to contact the office for any new lesions that develop within or around the previous surgery scar. 2. Seborrheic keratosis (3) Head, Left Arm, Right Arm Stuck on verrucous, redd-brown papules and plaques. Patient was counseled regarding these benign growths. Removal is normally not necessary, but they may be removed if they are symptomatic or for cosmetic reasons. 3. Lentigines Head - Anterior (Face) Scattered redd macules in sun-exposed areas. The patient was informed that lentigines are benign pigmented lesions that occur on sun-exposed and sun-damaged skin. No treatment is necessary. Recommended regular use of broad spectrum sunscreen SPF 30 or higher Next Visit: 6 months documented in this encounter [facility] 12-17-2024 History of Present illness Narrative Images from the original note were not included. HISTORY OF PRESENT ILLNESS: EST PT Diana Champion is an 69 y.o. @ female. EST PT HERE FOR YEARLY REACHECK RT TKA ~6YRS 2MO (10/18/18) - XRAY RT KNEE & RT HIP TODAY EPIC 12/17/24 XRAY EXA 11/16/22 XRAY [facility] SRIDHAR (EXA) 11/18/20 NO BONE SCAN NO PAIN MANAGEMENT NO RECENT PT WALKING WITH A WALKER. CONSTANT PAIN IN KNEE, DIFFUSE. +TYL AND USING ICE. +CRACKING, POPPING, BURNING. +BIOFREEZE. NOTES THIS HAS ALL BEEN GOING ON SINCE SX. HX LT HIP REVISION PER DR BRAVO 03/2020- PT STATES SHE NEEDS RT ELZA; NOT READY YET PER PT. ALLERGIES: Allergies Allergen Reactions Fentanyl Other Reaction(s): Hallucinating Vancomycin Unknown HOME MEDICATIONS: Current Outpatient Medications Medication Instructions albuterol HFA 90 mcg/act inhaler 2 puffs, Every 4 hours PRN albuterol 2.5 mg, Every 6 hours PRN baclofen (LIORESAL) 10 mg, Oral, 3 times daily ferrous sulfate 325 mg, Daily with breakfast Zjoedgrceks-Qseqewxyx-Tplhux (Trelegy Ellipta) 200-62.5-25 MCG/ACT aerosol powder 1 puff, Daily furosemide (LASIX) 20 mg, Daily guaiFENesin (MUCINEX) 1,200 mg, 2 times daily latanoprost (Xalatan) 0.005 % ophthalmic solution INSTILL 1 DROP INTO EACH EYE AT BEDTIME MAGnesium-Oxide 400 mg, Daily montelukast (SINGULAIR) 10 mg, Daily Multiple Vitamin (multivitamin) tablet 1 tablet, Daily omeprazole (PRILOSEC) 20 mg, Oral, Every 12 hours PARoxetine (PAXIL) 30 mg, Oral, Every morning pramipexole (MIRAPEX) 0.25 mg, Oral, Nightly PRN predniSONE (DELTASONE) 10 mg, See admin instructions pregabalin (Lyrica) 75 MG capsule TAKE 1 CAPSULE BY MOUTH TWICE DAILY (MORNING AND BEDTIME) sodium chloride 0.9 % nebulizer solution 3 mL, 2 times daily solifenacin (VESICARE) 10 mg, Oral, Daily traMADol (ULTRAM) 50 mg, Every 12 hours traZODone (DESYREL) 100 mg, Oral, Nightly PHYSICAL EXAM: Knee Musculoskeletal Exam Gait Limp: right Assistive device: walker Gait additional comments: Pt on oxygen favors right hip. Inspection Leg length disparity: no discrepancy Right Erythema: none Effusion: none Edema: none Ecchymosis: none Deformity: none Alignment: normal Previous incision: anterolateral Incision: well-healed Palpation Right Right knee palpation is unremarkable. Increased warmth: none Masses: none Tenderness: none Range of Motion Right Right knee range of motion is normal and full. Active extension: 0 Passive extension: 0 Active flexion: 120 Passive flexion: 120 Range of motion additional comments: + pain with limited IR right hip.. left hip replaced. + crepitus right hip noted. Strength Right Right knee strength is normal. Extension: 5/5. Flexion: 5/5. Instability Right Instability signs: none - stable Varus stress grade: normal Valgus stress grade: normal Neurovascular Right Right knee neurovascular exam is normal. Pulses - PT: normal Posterior tibial: 2+ Capillary refill: warm and well-perfused Special Signs Right Right knee special signs are normal. Patellar apprehension: none General Constitutional: appears stated age Labored breathing: no Psychiatric: normal mood and affect Neurological: alert Skin: intact Lymphadenopathy: none Vitals: There is no height or weight on file to calculate BMI. Tobacco Use: Low Risk (12/17/2024) Patient History Smoking Tobacco Use: Never Smokeless Tobacco Use: Never Passive Exposure: Never Alcohol Use: Not At Risk (11/25/2024) AUDIT-C Frequency of Alcohol Consumption: Never Average Number of Drinks: Patient does not drink Frequency of Binge Drinking: Never IMAGING: Procedures Orders Placed This Encounter Procedures XR knee 1 or 2 views right Order Specific Question: Reason for exam: Answer: total XR hip right 2 or 3 views Order Specific Question: Reason for exam: Answer: pain ASSESSMENT: ICD-10-CM 1. Acute pain of right knee M25.561 XR knee 1 or 2 views right 2. History of total right knee replacement Z96.651 3. Right hip pain M25.551 XR hip right 2 or 3 views Assessment & Plan 1. Bi-yearly follow-up of right total knee arthroplasty. Her knee examination is unremarkable, indicating satisfactory progress. There is no evidence of pain upon palpation or any signs or symptoms of infection. 2. Right hip arthritis. She reports significant pain in the right hip joint, which is likely referred from the arthritis. The hip shows notable crepitus and limited range of motion. An x-ray of both the right knee and right hip was performed at the bedside today. If she is not a surgical candidate for right total hip arthroplasty, conservative measures with pain management will be necessary. Pt will consult with her Dermatology Physician Assistant to see if she would be a canidate for surgery and Contact Dr. Bravo, as she will likely need surgery at Tertiary facility. Questions answered in laymen terms at the bedside. The diagnosis, home exercise plan and any ongoing restrictions/ recommendations reviewed. If unable to be reached in office, I recommend evaluation at nearest Emergency Room if any symptoms worsened or new symptoms develop for requiring urgent evaluation. documented in this encounter [facility] 12-13-2024 History of Present illness Narrative Images from the original note were not included. Subjective Diana Champion is a 69 y.o. female who presents for the following: Follow-up and Suspicious Skin Lesion. Location: chest Date of biopsy: 10/11/2024 Diagnosis: Invasive squamous cell carcinoma Lesions: Location: thigh Duration: months Quality: denies pain, denies itch, denies bleeding Modifying factors: none Associated symptoms: bump Treatments: none All pertinent medical history, medications, and allergies were reviewed. General Exam: alert, oriented to person, place, and time, normal affect, well appearing Accompanied by son A focused exam completed based on patient reported problems, see below: 1. Nevus lipomatosus cutaneus superficialis Right Thigh - Posterior Flesh colored pedunculated papule Reassured, benign. Offered removal today, patient declined. Instructed patient to notify office if any changes. 2. Squamous cell carcinoma of skin of chest Chest - Medial (Center) Zwingle macule at the biopsy site. Destr of lesion Complexity: simple Destruction method: cryotherapy Informed consent: discussed and consent obtained Informed consent comment: The risks of the procedure were discussed, including, but not limited to risks of scarring, darker or etl lead pigmentary changes, recurrence, infection, and incomplete removal Timeout: patient name, date of , surgical site, and procedure verified Timeout comment: Patient and provider identified site. Site was marked. Photo was taken and shown to patient, patient verified this is the correct site. Lesion destroyed using liquid nitrogen: Yes Region frozen until ice ball extended beyond lesion: Yes Cryotherapy cycles: 2 Lesion length (cm): 0.4 Lesion width (cm): 0.4 Margin per side (cm): 0 Final wound size (cm): 0.4 Outcome: patient tolerated procedure well with no complications Post-procedure details: wound care instructions given Post-procedure details comment: Post-cryotherapy instructions were given verbally and in writing. The office will be contacted if the lesion fails to resolve despite treatment, or if a side effect develops such as abnormal crusting, scabbing, reddness, discharge, or tenderness. Additional details: Previous accession number: [id number] Discussed treatment options excision vs cryotherapy in detail. Patient opted for cryotherapy. Cryotherapy completed today, see procedure note. Return to clinic prior to next scheduled visit for any signs or symptoms of recurrence, reviewed the signs and symptoms. Recommended 6 month skin exam. Next Visit: as scheduled documented in this encounter [facility] 11-28-2024 History of Present illness Narrative Associated Problem(s): Chronic obstructive pulmonary disease (COPD) ([facility]) Was admitted to [facility] for COPD with acute exacerbation. Was treated inpatient from 11/12/2024-11/18/2024. Was treated with IV ATB, steroids, pulmonary followed closely. Discharged home with prednisone taper over 4 weeks and Doxycycline X10 days. Is still completing course. States she feels better overall, has much more energy than she did before. Reports O2 has been stable at home around 96% on 3L via NC. This is her baseline. See's Dr. Mcclain again in January, advised pt to call his office to see if he wanted to see her outpatient sooner for hospital follow up. Images from the original note were not included. Subjective Patient ID: Diana Champion is a 69 y.o. female who presents for Hospital Follow-up. HPI Was admitted to [facility] for COPD with acute exacerbation. Was treated inpatient from 11/12/2024-11/18/2024. Was treated with IV ATB, steroids, pulmonary followed closely. Discharged home with prednisone taper over 4 weeks and Doxycycline X10 days. Is still completing course. States she feels better overall, has much more energy than she did before. Reports O2 has been stable at home around 96% on 3L via NC. This is her baseline. See's Dr. Mcclain again in January, advised pt to call his office to see if he wanted to see her outpatient sooner for hospital follow up. Review of Systems Constitutional: Negative for activity change, appetite change, chills, diaphoresis, fatigue, fever and unexpected weight change. HENT: Negative for congestion, ear pain, rhinorrhea, sinus pressure, sinus pain, sneezing, sore throat, trouble swallowing and voice change. Eyes: Negative for visual disturbance. Respiratory: Negative for cough, chest tightness, shortness of breath and wheezing. Cardiovascular: Negative for chest pain, palpitations and leg swelling. Gastrointestinal: Negative for abdominal distention, abdominal pain, blood in stool, constipation, diarrhea and vomiting. Genitourinary: Negative for decreased urine volume, dysuria, flank pain, frequency, hematuria and urgency. Musculoskeletal: Negative for arthralgias, gait problem, joint swelling and myalgias. Skin: Negative for rash. Neurological: Negative for dizziness, tremors, syncope, weakness, light-headedness and headaches. Psychiatric/Behavioral: Negative for decreased concentration and suicidal ideas. The patient is not nervous/anxious. Hematological: Does not bruise/bleed easily. Endocrine: Negative for cold intolerance, heat intolerance, polydipsia, polyphagia and polyuria. Objective Physical Exam Vitals reviewed. Constitutional: Appearance: Normal appearance. HENT: Right Ear: Tympanic membrane normal. Left Ear: Tympanic membrane normal. Nose: Nose normal. Mouth/Throat: Mouth: Mucous membranes are moist. Pharynx: Oropharynx is clear. Eyes: Pupils: Pupils are equal, round, and reactive to light. Cardiovascular: Rate and Rhythm: Normal rate and regular rhythm. Pulses: Normal pulses. Heart sounds: Normal heart sounds. Pulmonary: Effort: Pulmonary effort is normal. Breath sounds: Wheezing present. Abdominal: General: Abdomen is flat. Bowel sounds are normal. Palpations: Abdomen is soft. Musculoskeletal: General: Normal range of motion. Skin: General: Skin is warm and dry. Capillary Refill: Capillary refill takes less than 2 seconds. Neurological: Mental Status: She is alert and oriented to person, place, and time. Assessment/Plan Problem List Items Addressed This Visit Chronic obstructive pulmonary disease (COPD) ([facility]) - Primary Was admitted to [facility] for COPD with acute exacerbation. Was treated inpatient from 11/12/2024-11/18/2024. Was treated with IV ATB, steroids, pulmonary followed closely. Discharged home with prednisone taper over 4 weeks and Doxycycline X10 days. Is still completing course. States she feels better overall, has much more energy than she did before. Reports O2 has been stable at home around 96% on 3L via NC. This is her baseline. See's Dr. Mcclain again in January, advised pt to call his office to see if he wanted to see her outpatient sooner for hospital follow up. documented in this encounter [facility] 11-28-2024 Instructions Aida Reese NP - 11/28/2024 1:[address] Mcclain's office to see if he wants to see you for hospital follow up sooner than January. Take and finish all medications as directed. documented in this encounter [facility] 11-12-2024 History of Present illness Narrative Associated Problem(s): Chronic obstructive pulmonary disease (COPD) ([facility]) 5 days ago woke up, body aches, weakness, nausea/vomiting/diarrhea, coughing so much she is vomiting. Cough is productive- yellow thick phlegm. Reports small amount of blood tinged sputum from forceful coughing. 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 Has not tested for Flu/RSV/ COVID Reports mild shortness of breath; SPO2 92% on 3L via NC in office today. Pt reports she feels very weak and dehydrated, states she was considering going to ER but decided to schedule OV instead. Initially, I had ordered CXR, steroids, and valacyclovir for treatment of COPD with acute upper respiratory infection, however upon further assessment I am concerned for dehydration and patients overall clinical presentation. At this time advised patient to be seen in Emergency Room. Images from the original note were not included. Subjective Patient ID: Diana Champion is a 69 y.o. female who presents for Cough and Nausea. HPI 5 days ago woke up, body aches, weakness, nausea/vomiting/diarrhea, coughing so much she is vomiting. Cough is productive- yellow thick phlegm. Reports small amount of blood tinged sputum from forceful coughing. 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 Has not tested for Flu/RSV/ COVID Reports mild shortness of breath; SPO2 92% on 3L via NC in office today. Pt reports she feels very weak and dehydrated, states she was considering going to ER but decided to schedule OV instead. Initially, I had ordered CXR, steroids, and valacyclovir for treatment of COPD with acute upper respiratory infection, however upon further assessment I am concerned for dehydration and patients overall clinical presentation. At this time advised patient to be seen in Emergency Room. Review of Systems Constitutional: Positive for appetite change, chills and fatigue. Negative for activity change, diaphoresis, fever and unexpected weight change. HENT: Negative for congestion, ear pain, rhinorrhea, sinus pressure, sinus pain, sneezing, sore throat, trouble swallowing and voice change. Eyes: Negative for visual disturbance. Respiratory: Positive for cough, shortness of breath and wheezing. Negative for chest tightness. Cardiovascular: Negative for chest pain, palpitations and leg swelling. Gastrointestinal: Positive for diarrhea, nausea and vomiting. Negative for abdominal distention, abdominal pain, blood in stool and constipation. Genitourinary: Negative for decreased urine volume, dysuria, flank pain, frequency, hematuria and urgency. Musculoskeletal: Positive for myalgias. Negative for arthralgias, gait problem and joint swelling. Skin: Negative for rash. R nare and oral mucosal mouth sores Neurological: Positive for weakness and headaches. Negative for dizziness, tremors, syncope and light-headedness. Psychiatric/Behavioral: Negative for decreased concentration and suicidal ideas. The patient is not nervous/anxious. Hematological: Does not bruise/bleed easily. Endocrine: Negative for cold intolerance, heat intolerance, polydipsia, polyphagia and polyuria. Objective Physical Exam Constitutional: Appearance: Normal appearance. HENT: Head: Normocephalic. Right Ear: External ear normal. Left Ear: External ear normal. Nose: Nose normal. Left Sinus: Left maxillary sinus tenderness: Lesion. Comments: Lesion noted to L outer nare Mouth/Throat: Lips: Lesions present. Mouth: Mucous membranes are moist. Oral lesions present. Pharynx: Oropharynx is clear. Eyes: Pupils: Pupils are equal, round, and reactive to light. Cardiovascular: Rate and Rhythm: Normal rate and regular rhythm. Pulses: Normal pulses. Pulmonary: Effort: Pulmonary effort is normal. Breath sounds: Wheezing present. Abdominal: General: Abdomen is flat. Bowel sounds are normal. Palpations: Abdomen is soft. Musculoskeletal: General: Normal range of motion. Cervical back: Normal range of motion. Skin: General: Skin is cool and dry. Capillary Refill: Capillary refill takes less than 2 seconds. Coloration: Skin is ashen. Findings: Lesion present. Neurological: Mental Status: She is alert and oriented to person, place, and time. Psychiatric: Mood and Affect: Mood normal. Behavior: Behavior normal. Assessment/Plan Problem List Items Addressed This Visit Chronic obstructive pulmonary disease (COPD) (CMS/HCC) - Primary 5 days ago woke up, body aches, weakness, nausea/vomiting/diarrhea, coughing so much she is vomiting. Cough is productive- yellow thick phlegm. Reports small amount of blood tinged sputum from forceful coughing. 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 Has not tested for Flu/RSV/ COVID Reports mild shortness of breath; SPO2 92% on 3L via NC in office today. Pt reports she feels very weak and dehydrated, states she was considering going to ER but decided to schedule OV instead. Initially, I had ordered CXR, steroids, and valacyclovir for treatment of COPD with acute upper respiratory infection, however upon further assessment I am concerned for dehydration and patients overall clinical presentation. At this time advised patient to be seen in Emergency Room. Relevant Medications predniSONE (Deltasone) 20 MG tablet Other Relevant Orders XR chest 2 views Primary HSV infection of mouth Relevant Medications valACYclovir (Valtrex) 1 g tablet documented in this encounter [facility] 11-12-2024 Instructions Aida Reese NP - 11/12/2024 10:30 AM EST Have Chest Xray done PRISCILLA. Continue to rest, drink plenty of fluids, and eat a well-balance diet. Resume normal activity. AVOID anything strenuous until you are feeling better. Treatment: Nasal saline spray 2-3 times/dayCold and sinus medication - if you have high blood pressure issues use coricidin hbpAllegra or zyrtec allergy medication once daily. Flonase nasal spray 1-2 squirts in each nostril at night. Tylenol for fever and body aches. WORSENING SYMPTOMS, CHEST PAIN, OR SHORTNESS OF BREATH, GO TO THE NEAREST EMERGENCY DEPARTMENT. documented in this encounter [facility] 10-17-2024 Note Attestation signed by Emelia Yoo MD at 10/18/2024 11:59 AM Total time spent on day of [...] Telemedicine Visit Note Patient: Diana Champion Age: 69 y.o. : 1955 Account No.: [id number] Referring physician: Dr. Bo Mcclain Chief complaint: Recurreny pneumonia HPI Diana Champion is a 69 y.o. female with PMHx of chronic hypoxic respiratory failure on 3L home O2, tracheobronchomalacia who is presenting to clinic for follow up. Patient was previously referred by Dr. Bo Mcclain of [facility] in June of 2024. Patient had been having frequent pneumonias requiring hospitalization thought to be secondary to dynamic airway collapse. Therefore we performed bronchoscopy with airway inspection on 07/02/2024 which showed severe tracheobronchomalacia with mucous plugging. She subsequently followed up post procedure and different treatment options were discussed. She was hesitant to undergo APC or tracheal bronchoplasty at [facility] and instead opted to trial CPAP to help alleviate symptoms of severe tracheobronchomalacia. Since last clinic visit, she reports that her symptoms her about the same. Has baseline dyspnea but it is not getting worse. Has same chronic productive with sputum production; it is not foul smelling or bloody. She has not had another episode of pneumonia. No recent hospitalizations. She got her CPAP machine which we ordered and is compliant with it every night. She feels it is helping with her symptoms. Currently the patient is using Trelegy inhaler. She does not need the rescue Albuterol on a daily basis. The patient is a never smoker however was exposed to secondhand smoke for over 50 years. 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 Her family history is positive for COPD in her son. CT chest 06/07/2024 at outside [...] 1 antitrypsin Past Medical History: Diagnosis Date Allergic rhinitis Anemia Asthma Cancer (CMS/HCC) Chronic heart failure with preserved ejection fraction (CMS/HCC) Chronic hypoxic respiratory failure (CMS/HCC) Chronic kidney disease COPD (chronic obstructive pulmonary disease) (CMS/HCC) Coronary artery disease Depression Diabetes mellitus (CMS/HCC) Dyspnea GERD (gastroesophageal reflux disease) Hyperlipidemia Lumbar spondylosis Other secondary pulmonary hypertension (CMS/HCC) Pneumonia Primary osteoarthritis of right hip Pulmonary [...] Fe) MG tablet Take 325 mg by bessie (more content not included)... [facility] 10-15-2024 Hospital Discharge instructions Patient Education 10/15/2024 16:56:39 Overactive Bladder, Adult Overactive Bladder, Adult Overactive bladder is a condition in which a person has a sudden and frequent need to urinate. A person might also leak urine if he or she cannot get to the bathroom fast enough (urinary incontinence). Sometimes, symptoms can interfere with work or social activities. What are the causes? Overactive bladder is associated with poor nerve signals between your bladder and your brain. Your bladder may get the signal to empty before it is full. You may also have very sensitive muscles that make your bladder squeeze too soon. This condition may also be caused by other factors, such as: Medical conditions: ?Urinary tract infection. ?Infection of nearby tissues. ?Prostate enlargement. ?Bladder stones, inflammation, or tumors. ?Diabetes. ?Muscle or nerve weakness, especially from these conditions: ?A spinal cord injury. ?Stroke. ?Multiple sclerosis. ?Parkinson's disease. Other causes: ?Surgery on the uterus or urethra. ?Drinking too much caffeine or alcohol. ?Certain medicines, especially those that eliminate extra fluid in the body (diuretics). ?Constipation. What increases the risk? You may be at greater risk for overactive bladder if you: Are an older adult. Smoke. Are going through menopause. Have prostate problems. Have a neurological disease, such as stroke, dementia, Parkinson's disease, or multiple sclerosis (MS). Eat or drink alcohol, spicy food, caffeine, and other things that irritate the bladder. Are overweight or obese. What are the signs or symptoms? Symptoms of this condition include a sudden, strong urge to urinate. Other symptoms include: Leaking urine. Urinating 8 or more times a day. Waking up to urinate 2 or more times overnight. How is this diagnosed? This condition may be diagnosed based on: Your symptoms and medical history. A physical exam. Blood or urine tests to check for possible causes, such as infection. You may also need to see a health care provider who specializes in urinary tract problems. This is called a urologist. How is this treated? Treatment for overactive bladder depends on the cause of your condition and whether it is mild or severe. Treatment may include: Bladder training, such as: ?Learning to control the urge to urinate by following a schedule to urinate at regular intervals. ?Doing Kegel exercises to strengthen the pelvic floor muscles that support your bladder. Special devices, such as: ?Biofeedback. This uses sensors to help you become aware of your body's signals. ?Electrical stimulation. This uses electrodes placed inside the body (implanted) or outside the body. These electrodes send gentle pulses of electricity to strengthen the nerves or muscles that control the bladder. ?Women may use a plastic device, called a pessary, that fits into the vagina and supports the bladder. Medicines, such as: ?Antibiotics to treat bladder infection. ?Antispasmodics to stop the bladder from releasing urine at the wrong time. ?Tricyclic antidepressants to relax bladder muscles. ?Injections of botulinum toxin type A directly into the bladder tissue to relax bladder muscles. Surgery, such as: ?A device may be implanted to help manage the nerve signals that control urination. ?An electrode may be implanted to stimulate electrical signals in the bladder. ?A procedure may be done to change the shape of the bladder. This is done only in very severe cases. Follow these instructions at home: Eating and drinking Make diet or lifestyle changes recommended by your health care provider. These may include: ?Drinking fluids throughout the day and not only with meals. ?Cutting down on caffeine or alcohol. ?Eating a healthy and balanced diet to prevent constipation. This may include: ?Choosing foods that are high in fiber, such as beans, whole grains, and fresh fruits and vegetables. ?Limiting foods that are high in fat and processed sugars, such as fried and sweet foods. Lifestyle Lose weight if needed. Do not use any products that contain nicotine or tobacco. These include cigarettes, chewing tobacco, and vaping devices, such as e-cigarettes. If you need help quitting, ask your health care provider. General instructions Take agdo-dcv-qjchgyi and prescription medicines only as told by your health care provider. If you were prescribed an antibiotic medicine, take it as told by your health care provider. Do not stop taking the antibiotic even if you start to feel better. Use any implants or pessary as told by your health care provider. If needed, wear pads to absorb urine leakage. Keep a log to track how much and when you drink, and when you need to urinate. This will help your health care provider monitor your condition. Keep all follow-up visits. This is important. Contact a health care provider if: You have a fever or chills. Your symptoms do not get better with treatment. Your pain and discomfort get worse. You have more frequent urges to urinate. Get help right away if: You are not able to control your bladder. Summary Overactive bladder refers to a condition in which a person has a sudden and frequent need to urinate. Several conditions may lead to an overactive bladder. Treatment for overactive bladder depends on the cause and severity of your condition. Making lifestyle changes, doing Kegel exercises, keeping a log, and taking medicines can help with this condition. This information is not intended to replace advice given to you by your health care provider. Make sure you discuss any questions you have with your health care provider. Document Revised: 07/12/2021 Document Reviewed: 07/12/2021 [employer] Patient Education 2023 [employer]. Follow Up Care 10/11/2024 14:37:09 With:JOSE ALEJANDRO MICHAUD, MAG Hester, URL Address: [address] [place] [address] When:Within 3 Month(s) [facility] 10-15-2024 Note Urology Office/Clini c Note Chief Complaint Aida Reese NP referral HPI Staff 69 year old female referred by Aida Reese NP for urge incontinence. Pt. seen Dr. Brody 2011 due to urgency, frequency, nocturia and urge incontinence S/P Cysto 06/21/11 and URO's 06/17/11 Pt. states VESIcare is not working Dysuria: no Incomplete bladder emptying: yes, PVR 0mL Hematuria: no Frequency: yes Urgency: yes Nocturia: 2x's a night Stream: good stream Post void dripping: no Wearing pads/ Depends: yes, Pt. will use 4-5 Urge incontinence: yes Stress incontinence: yes Incontinence without Sensory Awareness: yes Abdominal pain: no Flank pain: no Review of Systems PHQ Score Initial Depression Screen Score: 2 SCORE Physical Exam Vitals & Measurements HR: 64(Peripheral) RR: 20 BP: 147/75 HT: 64 in HT: 163 cm WT: 107 kg WT: 235.894 lb BMI: 40.27 Assessment/Plan CHF - [facility] CKD - Joana COPD/Pulm - Samsa/Omballi. Required hospitalization in Aug. Colorectal CA 2003 tx'd w Chemo/rad. No recurrence. Follows w [facility]. Denies issues w UTIs. No hx stones. Never has gross hematuria. 1. Mixed incontinence (N39.46: Mixed incontinence) Saw PRW . Cysto showed radiation changes in bladder. Uros showed max capacity 238ml, good compliance, low contraction but not true hypotonic (low nl). Has been on Vesicare since that time. Increased to 10mg at some point. Pt states it stopped working about 3 yrs ago. No longer can jsut wear pads. Now has to wear pads inside Briefs. This is very upsetting to her. Would like to get back to just pads. Has UUI, DONNA, and incontinence w/o awareness. UUI is most often. BBSQ 23. +FI but rare. No DM. On Lasix. Denies significant bladder irritant intake. Discussed tx options for bothersome urinary sx including oral medications, Botox, SNM. Medication management includes anticholinergics and beta-3 agonists. Beta-3's (Myrbetriq/Gemtesa) are often preferable due to lower side effect profile, but most insurances won't cover without trying anticholinergics first. I explained the most common side effects are dry mouth, dry eyes, and constipation. We discussed OTC options to help with these side effects. We did discuss that there is a documented potential side effect of mental status changes/confusion in the elderly, but that this risk is quite low. Pt and I agree that potential benefit outweigh risk at this time. Pt would like to switch meds but she is changing insurance in November. She will check her coverage book of all bladder meds and get back to me. I will rx new med in November. Will f/u 2-3 mos later to assess efficacy. If fails 1-2 more meds then we will consider next steps which could include cysto, urodynamics, Botox, SNM. Orders: [id number] Measure Post Void residual urine and/or bladder capacity by US- non-imaging E&M of New Patient Moderate 45-59 Min 24151 Urine Culture Urnls Dip Stick Auto w/o Microscopy POC [id number] Follow-up With When Contact Information JOSE ALEJANDRO MICHAUD, MAG Hester, URL In 3 months [address] 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 Medications albuterol 0.083% Inh Meagan 3 mL, 2.5 mg= 3 mL baclofen, 10 mg, Oral ferrous sulfate 325 mg Tab, 325 mg= 1 tab(s), Oral, Daily fluticasone/umeclidinium/vilanterol 200 mcg-62.5 mcg-25 mcg/inh inhalation powder, Inhalation, Daily guaiFENesin 600 mg ER Tab, 600 mg= 1 tab(s), Oral, q12hr Lasix 20 mg Tab, Oral, Daily magnesium oxide 400 mg Tab montelukast 10 mg Tab Multi Vitamins oral tablet, Oral, Daily omeprazole 20 mg Cap-DR, 20 mg= 1 cap(s) paroxetine 30 mg Tab, 30 mg= 1 tab(s) pramipexole 0.25 mg Tab, Oral pregabalin 75 mg Cap, 75 mg= 1 cap(s) sodium chloride traMADOL 50 mg Tab, 50 mg= 1 tab(s), Oral traZODONE 100 mg Tab, 100 mg= 1 tab(s) Vesicare 10 mg Tab, Oral, Daily Xalatan 0.005% Soln-Opth, 1 drop(s) Allergies f (more content not included)... [facility] Comment on above: Result Comment: Elec tronically Signed By: MAG BLOUNT PA-C\.victorina\Date and Time Signed: 10/15/24 16:57 EST 10-15-2024 Note Patient Education Obstetrics and Gynecology Overactive Bladder, Adult Overactive bladder is a condition in which a person has a sudden and frequent need to urinate. A person might also leak urine if he or she cannot get to the bathroom fast enough (urinary incontinence). Sometimes, symptoms can interfere with work or social activities. What are the causes? Overactive bladder is associated with poor nerve signals between your bladder and your brain. Your bladder may get the signal to empty before it is full. You may also have very sensitive muscles that make your bladder squeeze too soon. This condition may also be caused by other factors, such as: ??? Medical conditions: ? Urinary tract infection. ? Infection of nearby tissues. ? Prostate enlargement. ? Bladder stones, inflammation, or tumors. ? Diabetes. ? Muscle or nerve weakness, especially from these conditions: ? A spinal cord injury. ? Stroke. ? Multiple sclerosis. ? Parkinson's disease. ??? Other causes: ? Surgery on the uterus or urethra. ? Drinking too much caffeine or alcohol. ? Certain medicines, especially those that eliminate extra fluid in the body (diuretics). ? Constipation. What increases the risk? You may be at greater risk for overactive bladder if you: ??? Are an older adult. ??? Smoke. ??? Are going through menopause. ??? Have prostate problems. ??? Have a neurological disease, such as stroke, dementia, Parkinson's disease, or multiple sclerosis (MS). ??? Eat or drink alcohol, spicy food, caffeine, and other things that irritate the bladder. ??? Are overweight or obese. What are the signs or symptoms? Symptoms of this condition include a sudden, strong urge to urinate. Other symptoms include: ??? Leaking urine. ??? Urinating 8 or more times a day. ??? Waking up to urinate 2 or more times overnight. How is this diagnosed? This condition may be diagnosed based on: ??? Your symptoms and medical history. ??? A physical exam. ??? Blood or urine tests to check for possible causes, such as infection. You may also need to see a health care provider who specializes in urinary tract problems. This is called a urologist. How is this treated? Treatment for overactive bladder depends on the cause of your condition and whether it is mild or severe. Treatment may include: ??? Bladder training, such as: ? Learning to control the urge to urinate by following a schedule to urinate at regular intervals. ? Doing Kegel exercises to strengthen the pelvic floor muscles that support your bladder. ??? Special devices, such as: ? Biofeedback. This uses sensors to help you become aware of your body's signals. ? Electrical stimulation. This uses electrodes placed inside the body (implanted) or outside the body. These electrodes send gentle pulses of electricity to strengthen the nerves or muscles that control the bladder. ? Women may use a plastic device, called a pessary, that fits into the vagina and supports the bladder. ??? Medicines, such as: ? Antibiotics to treat bladder infection. ? Antispasmodics to stop the bladder from releasing urine at the wrong time. ? Tricyclic antidepressants to relax bladder muscles. ? Injections of botulinum toxin type A directly into the bladder tissue to relax bladder muscles. ??? Surgery, such as: ? A device may be implanted to help manage the nerve signals that control urination. ? An electrode may be implanted to stimulate electrical signals in the bladder. ? A procedure may be done to change the shape of the bladder. This is done only in very severe cases. Follow these instructions at home: Eating and drinking ??? Make diet or lifestyle changes recommended by your health care provider. These may include: ? Drinking fluids throughout the day and not only with meals. ? Cutting down on caffeine or alcohol. ? Eating a healthy and balanced diet to prevent constipation. This may include: ? Choosing foods that are high in fiber, such as beans, whole grains, and fresh fruits and vegetables. ? Limiting foods that are high in fat and processed sugars, such as fried and sweet foods. Lifestyle ??? Lose weight if needed. ??? Do not use any products that contain nicotine or tobacco. These include cigarettes, chewing tobacco, and vaping devices, such as e-cigarettes. If you need help quitting, ask your health care provider. General instructions ??? Take ukyp-kme-ugizfli and prescription medicines only as told by your health care provider. ??? If you were prescribed an antibiotic medicine, take it as told by your health care provider. Do not stop taking the antibiotic even if you start to feel better. ??? Use any implants or pessary as told by your health care provider. ??? If needed, wear pads to absorb urine leakage. ??? Keep a log to track how much and when you drink, and whe (more content not included)... [facility] 10-11-2024 History of Present illness Narrative Images from the original note were not included. Lesions: Location: mid chest Duration: 3 weeks Quality: itchy Modifying factors: rubs on clothing, aggravated by picking Associated symptoms: non-healing, red Treatments: none New patient All pertinent medical history, medications, and allergies were reviewed. General Exam: alert, oriented to person, place, and time, normal affect, well appearing uses a wheelchair Accompanied by spouse A focused exam completed based on patient reported problems, see below: 1. Neoplasm of unspecified behavior of bone, soft tissue, and skin Chest - Medial (Center) Erythematous papule Lesion biopsy Type of biopsy: tangential Informed consent: discussed and consent obtained Informed consent comment: The risks and benefits of the biopsy were discussed. Risks include but are not limited to bleeding, infection, scarring, pain, and nerve damage. An opportunity to ask questions prior to the procedure was permitted and all questions were answered. Patient was prepped and draped in usual sterile fashion: area cleansed with alcohol. Anesthesia: the lesion was anesthetized in a standard fashion Anesthetic: 1% lidocaine w/ epinephrine 1-100,000 buffered w/ 8.4% NaHCO3 Instrument used: DermaBlade Hemostasis achieved with: electrodesiccation Outcome: patient tolerated procedure well Outcome comment: The specimen was placed in a prelabeled formalin container to be sent for pathology Post-procedure details: sterile dressing applied and wound care instructions given Post-procedure details comment: Emphasized need to contact clinic for any signs of infection, uncontrollable bleeding, or complications. Dressing type: bandage Additional details: Photo taken Amount of lidocaine used: 0.5 cc Specimen A - Dermatopathology exam Differential Diagnosis: SCC vs. ISK Check Margins: No Size of lesion: 0.4 x 0.4 cm Biopsy today, see procedure note. 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 Area is closed, raised, and reddened with thin scab in place. Referral sent to Dermatology. Associated Problem(s): Chronic respiratory failure with hypoxia (CMS/HCC) Following closely with Dr. Mcclain. Recent exacerbation requiring hospitalization in August. Feels symptoms have improved, is still requiring 3L O2 NC baseline. Currenlty taking Trelegy, Albuterol, Singulai, Mucinex. Associated Problem(s): Chronic kidney disease, stage III (moderate) (HCC) ([facility]) Follows with Dr. Rivera. Monitor CMP, avoid nephrotoxic agents. Associated Problem(s): Morbid obesity with BMI of 40.0-44.9, adult ([facility]) Discussed with patient their BMI (actual, verses recommended). We have also discussed lifestyle modifications: attempts to perform physical activity as chronic conditions allow, also to monitor dietary intake: increasing protein/fruits/veggies and lowering carb intake (unless contraindicated). Limit sodas, juices, and sugary drinks. Images from the original note were not included. Subjective Patient ID: Diana Champion is a 69 y.o. female who presents for Follow-up (She presents today for a 3 month follow up for her asthma. ). HPI Specialists: Pulmonology- Dr. Mcclain and Dr. Yoo Cardiology- [facility] Ortho- Dr. Corrales Nephrology- Dr. Sky Was seeing Urology 5 years ago for urinary retention. Now is having mixed incontinence. Lesion of uncertain behavior middle chest- tried popping it two weeks ago, area has now become reddened. Area is closed, raised, and reddened with thin scab in place. Referral sent to Dermatology. Review of Systems Constitutional: Negative for activity change, appetite change, chills, diaphoresis, fatigue, fever and unexpected weight change. HENT: Negative for congestion, ear pain, rhinorrhea, sinus pressure, sinus pain, sneezing, sore throat, trouble swallowing and voice change. Eyes: Negative for visual disturbance. Respiratory: Negative for cough, chest tightness, shortness of breath and wheezing. Cardiovascular: Negative for chest pain, palpitations and leg swelling. Gastrointestinal: Negative for abdominal distention, abdominal pain, blood in stool, constipation, diarrhea and vomiting. Genitourinary: Negative for decreased urine volume, dysuria, flank pain, frequency, hematuria and urgency. Musculoskeletal: Negative for arthralgias, gait problem, joint swelling and myalgias. Skin: Negative for rash. Neurological: Negative for dizziness, tremors, syncope, weakness, light-headedness and headaches. Psychiatric/Behavioral: Negative for decreased concentration and suicidal ideas. The patient is not nervous/anxious. Hematological: Does not bruise/bleed easily. Endocrine: Negative for cold intolerance, heat intolerance, polydipsia, polyphagia and polyuria. Objective Physical Exam Vitals reviewed. Constitutional: Appearance: Normal appearance. HENT: Head: Normocephalic and atraumatic. Right Ear: Tympanic membrane normal. Left Ear: Tympanic membrane normal. Nose: Nose normal. Mouth/Throat: Mouth: Mucous membranes are moist. Pharynx: Oropharynx is clear. Eyes: Pupils: Pupils are equal, round, and reactive to light. Cardiovascular: Rate and Rhythm: Normal rate and regular rhythm. Pulses: Normal pulses. Heart sounds: Normal heart sounds. Pulmonary: Effort: Pulmonary effort is normal. Breath sounds: Normal breath sounds. Abdominal: General: Abdomen is flat. Bowel sounds are normal. Palpations: Abdomen is soft. Musculoskeletal: General: Normal range of motion. Cervical back: Normal range of motion. Skin: General: Skin is warm and dry. Capillary Refill: Capillary refill takes less than 2 seconds. Findings: Rash present. Rash is macular. Neurological: General: No focal deficit present. Mental Status: She is alert and oriented to person, place, and time. Psychiatric: Mood and Affect: Mood normal. Behavior: Behavior normal. Assessment/Plan Problem List Items Addressed This Visit Chronic kidney disease, stage III (moderate) (HCC) ([facility]) Follows with Dr. Rivera. Monitor CMP, avoid nephrotoxic agents. Morbid obesity with BMI of 40.0-44.9, adult ([facility]) Discussed with patient their BMI (actual, verses recommended). We have also discussed lifestyle modifications: attempts to perform physical activity as chronic conditions allow, also to monitor dietary intake: increasing protein/fruits/veggies and lowering carb intake (unless contraindicated). Limit sodas, juices, and sugary drinks. Urge incontinence - Primary Relevant Orders Ambulatory referral to Urology Chronic respiratory failure with hypoxia (CMS/HCC) Following closely with Dr. Mcclain. Recent exacerbation requiring hospitalization in August. Feels symptoms have improved, is still requiring 3L O2 NC baseline. Currenlty taking Trelegy, Albuterol, Singulai, Mucinex. 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 Area is closed, raised, and reddened with thin scab in place. Referral sent to Dermatology. Relevant Orders Ambulatory referral to Dermatology documented in this encounter [facility] 09-03-2024 Telephone encounter Note Pt requesting a refill on her Omeprazole BECK:08/19/2024 NOV:10/09/2024 [facility] 09-03-2024 Miscellaneous Notes Pt requesting a refill on her Omeprazole BECK:08/19/2024 NOV:10/09/2024 documented in this encounter [facility] 08-22-2024 Telephone encounter Note Patient called in saying you wanted her to do a stool sample, but she has not gotten an order for that, so she wasn't sure when she was supposed to do that. Also her pregabalin needs refilled but she said that [facility] had a hard time getting it in last time. JN [facility] 08-22-2024 Miscellaneous Notes Patient called in saying you wanted her to do a stool sample, but she has not gotten an order for that, so she wasn't sure when she was supposed to do that. Also her pregabalin needs refilled but she said that [facility] had a hard time getting it in last time. MAYANK Patient's home health nurse called saying she had left a message earlier today with nurse but hasn't heard back. Patient has been in and out of the ER (has an appointment next week with you) however the medications she is on is making her sick and possible c diff. Home health nurse would like you to call her back to see what medication she could be on to help with the c diff etc she suggested maybe Flagil (not sure if I spelled that right) nurse phone number is [phone] or you can contact patient she said. MAYANK documented in this encounter [facility] 08-19-2024 History of Present illness Narrative Last Monday left hospital and has been having diarrhea about 6 times a day. Images from the original note were not included. Subjective Patient ID: Diana Champion is a 69 y.o. female who presents for No chief complaint on file.. [facility] Hospital follow up; Was seen at [facility] 08/08/24-08/12/24 ARF; Was discharged home on Azithromycin and Augmentin X14 days. Feels breathing is back to baseline since discharge, but reports having diarrhea 6 times per day since discharge- likely related to augmentin. Instructed pt to stop augmentin. See's Dr. Mcclain on 09/03 Review of Systems Constitutional: Negative for activity change, appetite change, chills, diaphoresis, fatigue, fever and unexpected weight change. HENT: Negative for congestion, ear pain, rhinorrhea, sinus pressure, sinus pain, sneezing, sore throat, trouble swallowing and voice change. Eyes: Negative for visual disturbance. Respiratory: Positive for cough. Negative for chest tightness, shortness of breath and wheezing. Cardiovascular: Negative for chest pain, palpitations and leg swelling. Gastrointestinal: Positive for diarrhea. Negative for abdominal distention, abdominal pain, blood in stool, constipation and vomiting. Genitourinary: Negative for decreased urine volume, dysuria, flank pain, frequency, hematuria and urgency. Musculoskeletal: Negative for arthralgias, gait problem, joint swelling and myalgias. Skin: Negative for rash. Neurological: Negative for dizziness, tremors, syncope, weakness, light-headedness and headaches. Psychiatric/Behavioral: Negative for decreased concentration and suicidal ideas. The patient is not nervous/anxious. Hematological: Does not bruise/bleed easily. Endocrine: Negative for cold intolerance, heat intolerance, polydipsia, polyphagia and polyuria. Objective Physical Exam Vitals reviewed. Constitutional: Appearance: Normal appearance. HENT: Head: Normocephalic and atraumatic. Right Ear: Tympanic membrane normal. Left Ear: Tympanic membrane normal. Nose: Nose normal. Mouth/Throat: Mouth: Mucous membranes are moist. Pharynx: Oropharynx is clear. Eyes: Pupils: Pupils are equal, round, and reactive to light. Cardiovascular: Rate and Rhythm: Normal rate and regular rhythm. Pulses: Normal pulses. Heart sounds: Normal heart sounds. Pulmonary: Effort: Pulmonary effort is normal. Breath sounds: Normal breath sounds. Abdominal: General: Abdomen is flat. Bowel sounds are normal. Palpations: Abdomen is soft. Musculoskeletal: General: Normal range of motion. Cervical back: Normal range of motion. Skin: General: Skin is warm and dry. Capillary Refill: Capillary refill takes less than 2 seconds. Neurological: General: No focal deficit present. Mental Status: She is alert and oriented to person, place, and time. Psychiatric: Mood and Affect: Mood normal. Behavior: Behavior normal. Assessment/Plan Problem List Items Addressed This Visit Moderate persistent asthma with exacerbation (CMS/[facility]) - Primary Other Visit Diagnoses Diarrhea, unspecified type Relevant Orders Clostridium difficile,EIA documented in this encounter [facility] 08-19-2024 Instructions Aida Reese NP - 08/19/2024 11:30 AM EDT Continue Augmentin. Start taking OTC probiotics Have stool culture completed to test for C.Difficile. If negative continue ATB regimen as directed. If positive we will treat accordingly. Keep all follow up appointments as scheduled. documented in this encounter [facility] 08-13-2024 Note Gram Stain Evaluation This specimen is of good quality and is acceptable for routine [facility] 08-13-2024 Note [facility] GRAM STAIN EVALUATION bacterial culture. [facility] 08-13-2024 Telephone encounter Note Patient's home health nurse called saying she had left a message earlier today with nurse but hasn't heard back. Patient has been in and out of the ER (has an appointment next week with you) however the medications she is on is making her sick and possible c diff. Home health nurse would like you to call her back to see what medication she could be on to help with the c diff etc she suggested maybe Flagil (not sure if I spelled that right) nurse phone number is [phone] or you can contact patient she said. JN [facility] 07-16-2024 Telephone encounter Note Pt informed of lab results and provider recommendations. Pt does do chair exercises four times a week and walks (with walker) but due to her health conditions she is limited. Pt is in a wheelchair with very limited ambulation -SCR [facility] 07-16-2024 Miscellaneous Notes Pt informed of lab results and provider recommendations. Pt does do chair exercises four times a week and walks (with walker) but due to her health conditions she is limited. Pt is in a wheelchair with very limited ambulation -SCR ----- Message from Aida Reese sent at 07/13/2024 8:18 PM EDT ----- Please call pt to update with results. Everyhting looks good except Triglycerides are elevated. I would recommend lowering your saturated fat intake (fried foods/fast foods) and increasing your cardiovascular exercise. I would recommend lowering your carbohydrate (bread/sugary food/alcohol) intake to improve your triglycerides. I recommend increasing your dietary intake of poultry, fish, low-fat dairy products, vegetables, fruits, whole grains, legumes, and nuts. Decrease your dietary intake of sodium, sweets, sweetened beverages, and red meats. In addition, increase your exercise to include 150 minutes per week of moderate-intensity, and 75 minutes per week of vigorous aerobic activity. Thank you -BF ----- Message ----- From: Interface, Lab Results In Sent: 07/12/2024 9:29 AM EDT To: Aida Reese NP documented in this encounter [facility] 07-16-2024 Telephone encounter Note ----- Message from Aida Reese sent at 07/13/2024 8:18 PM EDT ----- Please call pt to update with results. Everyhting looks good except Triglycerides are elevated. I would recommend lowering your saturated fat intake (fried foods/fast foods) and increasing your cardiovascular exercise. I would recommend lowering your carbohydrate (bread/sugary food/alcohol) intake to improve your triglycerides. I recommend increasing your dietary intake of poultry, fish, low-fat dairy products, vegetables, fruits, whole grains, legumes, and nuts. Decrease your dietary intake of sodium, sweets, sweetened beverages, and red meats. In addition, increase your exercise to include 150 minutes per week of moderate-intensity, and 75 minutes per week of vigorous aerobic activity. Thank you -BF ----- Message ----- From: Tip, Lab Results In Sent: 07/12/2024 9:29 AM EDT To: Aida Reese NP [facility] 07-11-2024 Note Attestation signed by Emelia Yoo [...] Age: 68 y.o. : 1955 Account No.: [id number] [facility] Chief Complaint: follow up after recent [...] years. 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 Her family history is positive [...] was initiated by the patient and conducted [id number] with use of audio-only real time telephone communication between patient and provider for a virtual visit. Verbal consent to provide and bill this service was obtained on: 07/11/24 No signature was obtained due to the COVID-19 pandemic. Past Medical History: Diagnosis Date Allergic rhinitis Anemia Asthma Cancer (CMS/HCC) Chronic heart failure with preserved ejection fraction ([facility]/HCC) Chronic hypoxic respiratory failure ([facility]) Chronic kidney disease COPD (chronic obstructive pulmonary disease) (CMS/HCC) Coronary artery disease Depression Diabetes mellitus (CMS/HCC) Dyspnea GERD (gastroesophageal reflux disease) Hyperlipidemia Lumbar spondylosis Other secondary pulmonary hypertension (CMS/HCC) Pneumonia Primary osteoarthritis of right hip Pulmonary [...] EVERY 4 TO 6 HOURS NEEDED Historical ProviderMD albuterol 90 mcg/actuation inhaler INHALE 2 PUFFS BY MOUTH EVERY 4 HOURS NEEDED FOR SHORTNESS OF BREATH Historical Provider, baclofen (Lioresal) 5 mg tablet Take 10 mg by mouth in the morning, afternoon, and at bedtime. 5/9/23 Historical Provider, cholecalciferol (Vitamin D-3) 25 MCG (1000 UT) tablet Take 1 tablet by mouth in the morning. Historical Provider, ferrous sulfate 325 (65 Fe) MG tablet Take 325 mg by mouth every other day. Historical Provider, ggxncnbkkuf-fyysmrlko-rlcfceue 100-62.5-25 mcg blister with device Historical Provider, [...] (Theragran-M) 9 mg (more content not included)... [facility] 07-11-2024 History of Present illness Narrative Associated Problem(s): Morbid obesity with BMI of 40.0-44.9, adult (CMS/HCC) Discussed with patient their BMI (actual, verses recommended). We have also discussed lifestyle modifications: attempts to perform physical activity as chronic conditions allow, also to monitor dietary intake: increasing protein/fruits/veggies and lowering carb intake (unless contraindicated). Limit sodas, juices, and sugary drinks. Associated Problem(s): Severe persistent asthma without complication (CMS/HCC) Currently taking Trelegy Singulair Albuterol Was seen on 06/12/24 for Hospital follow up. Is following closely with Pulmonology; Tracheobronchomalacia Associated Problem(s): Hyperlipidemia (CMS/HCC) Currently not on any medications: Lifestyle and dietary modifications. Recheck lipid pane today. Associated Problem(s): Chronic heart failure with preserved ejection fraction (CMS[facility]HCC) [facility] Las[facility] 20[facility] Associated Problem(s): Benign essential HTN (CMS/HCC) Currently not taking any medications. Bp is well controlled. Averages 120's-130's. Images from the original note were not included. Subjective Patient ID: Diana Champion is a 68 y.o. female who presents for Follow-up. HPI Specialists: Pulmonology- Dr. Mcclain and Dr. Yoo Cardiology- [facility]o- Dr. Corrales Nephrology- Dr. Sky Was seeing Urology 5 years ago for urinary retention. Now is having mixed incontinence. Does not want referral today, would like to revisit at next visit. Was seen on 06/12/24 for Hospital follow up. Is following closely with Pulmonology; Tracheobronchomalacia HTN: Currently not taking any medications. Bp is well controlled. Averages 120's-130's. HFpEF: Follows [facility] Was seen in May 2024 Lasix 20mg HLD: Currently not on any medications: Lifestyle and dietary modifications. Recheck lipid pane today. Review of Systems Constitutional: Negative for activity change, appetite change, chills, fatigue, fever, night sweats and unexpected weight change. HENT: Negative for congestion, ear pain, rhinorrhea, sinus pressure, sinus pain, sore throat, trouble swallowing and voice change. Eyes: Negative for discharge and visual disturbance. Respiratory: Positive for shortness of breath. Negative for cough, chest tightness, wheezing and stridor. Baseline SOB with exertion Cardiovascular: Negative for chest pain, palpitations and leg swelling. Gastrointestinal: Negative for abdominal distention, abdominal pain, blood in stool, constipation, diarrhea, nausea and vomiting. Genitourinary: Negative for difficulty urinating, dysuria, flank pain, hematuria and pelvic pain. Musculoskeletal: Negative for arthralgias, joint swelling and neck pain. Skin: Negative for rash and wound. Neurological: Negative for dizziness, tremors, syncope, weakness, light-headedness, numbness and headaches. Psychiatric/Behavioral: Negative for sleep disturbance and suicidal ideas. The patient is not nervous/anxious. Hematological: Does not bruise/bleed easily. Endocrine: Negative for cold intolerance, heat intolerance, polydipsia, polyphagia and polyuria. Objective Physical Exam Vitals reviewed. Constitutional: Appearance: Normal appearance. HENT: Head: Normocephalic and atraumatic. Right Ear: Tympanic membrane normal. Left Ear: Tympanic membrane normal. Nose: Nose normal. Mouth/Throat: Mouth: Mucous membranes are moist. Pharynx: Oropharynx is clear. Eyes: Pupils: Pupils are equal, round, and reactive to light. Cardiovascular: Rate and Rhythm: Normal rate and regular rhythm. Pulses: Normal pulses. Heart sounds: Normal heart sounds. Pulmonary: Effort: Pulmonary effort is normal. Breath sounds: Normal breath sounds. Abdominal: General: Abdomen is flat. Bowel sounds are normal. Palpations: Abdomen is soft. Musculoskeletal: General: Normal range of motion. Cervical back: Normal range of motion. Skin: General: Skin is warm and dry. Capillary Refill: Capillary refill takes less than 2 seconds. Neurological: General: No focal deficit present. Mental Status: She is alert and oriented to person, place, and time. Psychiatric: Mood and Affect: Mood normal. Behavior: Behavior normal. Assessment/Plan Problem List Items Addressed This Visit Benign essential HTN (CMS/HCC) - Primary Currently not taking any medications. Bp is well controlled. Averages 120's-130's. Relevant Orders Microalbumin / creatinine urine ratio Comprehensive metabolic panel CBC and differential Chronic heart failure with preserved ejection fraction (CMS/HCC) Follows Cardiology- [facility] Was seen in May 2024 Lasix 20mg Relevant Orders Comprehensive metabolic panel CBC and differential Hyperlipidemia (CMS/HCC) Currently not on any medications: Lifestyle and dietary modifications. Recheck lipid pane today. Relevant Orders Lipid panel Comprehensive metabolic panel CBC and differential Morbid obesity with BMI of 40.0-44.9, adult (CMS/[facility]) Discussed with patient their BMI (actual, verses recommended). We have also discussed lifestyle modifications: attempts to perform physical activity as chronic conditions allow, also to monitor dietary intake: increasing protein/fruits/veggies and lowering carb intake (unless contraindicated). Limit sodas, juices, and sugary drinks. Relevant Orders Comprehensive metabolic panel CBC and differential Severe persistent asthma without complication (CMS/HCC) Currently taking Trelegy Singulair Albuterol Was seen on 06/12/24 for Hospital follow up. Is following closely with Pulmonology; Tracheobronchomalacia documented in this encounter [facility] 07-11-2024 Instructions Aida Reese NP - 07/11/2024 8:30 AM EDT FASTING labs ordered. Nothing to eat or drink for 12 hours prior to blood draw. Water and black coffee ok. 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 [...] by trained RN and supervised by the Dermatology Physician Assistant. 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 : 1955 Account No.: [id number] Referring physician: Dr. Bo Mcclain Chief complaint: Recurreny pneumonia HPI Diana Champion is a 68 y.o. female with PMHx of reportedly COPD, chronic hypoxic respiratory failure on 2L home O2 who is presenting to clinic as a new patient after being referred by Dr. Bo Baker of [facility]. Patient has been admitted 4 times [...] years. 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 Her family history is positive [...] Past Medical History: Diagnosis Date Asthma Cancer ([facility]) COPD (chronic obstructive pulmonary disease) ([facility]) Coronary artery disease GERD (gastroesophageal reflux [...] mouth every other day. Yes Historical Provider, jzmyaogscoa-viefoffwo-jahezvxw 100-62.5-25 mcg blister with device Yes Historical [...] mEq ER ta (more content not included)... [facility] 05-13-2024 Note [facility] Cardiology Clinic Note Chief Complaint: Patient here for 1 year follow up CAD and hypertension. She was recently discharged from [facility] for Covid-19. She says hydrochlorothiazide [...] breath since then. 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 Her chest pain is noncardiac. She has [...] a past medical history of Asthma, Cancer ([facility]), COPD (chronic obstructive pulmonary disease) ([facility]), Coronary artery disease, GERD (gastroesophageal reflux [...] mouth every other day., Disp: , Rfl: gzrxylyulog-tcxbiufmv-briprwvd 100-62.5-25 mcg blister with device, , Disp: [...] Examination: GENERAL: a (more content not included)... [facility] 09-07-2023 Evaluation note Encounter Date Diagnosis Assessment Notes Sep, Hypomagnesemia (ICD-10 - E83.42) [facility] Other 10-23-2023 Evaluation note* Encounter Date Diagnosis Assessment Notes Treatment Notes Treatment Clinical Notes Aug, Nico bolden cr kid I-IV (ICD-10 - I12.9) [facility] Other 10-12-2023 Evaluation note* Encounter Date Diagnosis [...] PPI induced GI losses. Continue oral Magnesium [facility] Other 05-19-2023 NotePROCEDURE: XR HIP RT 2 3V W PELVIS HISTORY: Pain in right hip joint , chronic COMPARISON: XR L-spine 02/26/2019, XR left hip with pelvis 03/11/2017 FINDINGS: BONES:Complete loss of the right hip joint space with jeit-pb-mmly articulation, subchondral sclerosis and cysts, and large periarticular degenerative osteophytes. No fracture or dislocation. Left hip replacement. Mechanical fusion of L5-S1 and moderate dextroscoliosis of lumbar spine. SOFT TISSUES:No visible soft tissue swelling. EFFUSION:None visible. OTHER: Negative. IMPRESSION: 1. Marked degenerative joint disease of the right hip; progressed since prior study. 2. Stable surgical changes. Electronically authenticated by: STEPH GRANADOS Date: 2023-03-24 12:55[facility]04-27-2023 Evaluation note* Encounter Date Diagnosis Assessment [...] PPI induced GI losses. Continue oral Magnesium [facility] Encounter Date Diagnosis Assessment Notes Treatment Notes Treatment Clinical Notes Nov, Hypokalemia (ICD-10 - E87.6) Nov, Hypomagnesemia (ICD-10 - E83.42) [facility] Other 10-04-2022 Evaluation note* Encounter Date Diagnosis [...] office does not accept her new insurance. [facility] Other 09-02-2022 Evaluation note* Encounter Date Diagnosis Assessment Notes Treatment Notes Treatment Clinical Notes Jul, History of colon cancer (ICD-10 - Z85.038) [facility] Other 01-12-2022 Evaluation note* Encounter Date Diagnosis [...] potassium wasting. I have prescribed oral potassium. [facility] Other 10-25-2021 Evaluation note* Encounter Date Diagnosis [...] Patient care instructions given in writting by [facility] Care At Home document [facility] Other Evaluation + Plan note Future Appointments Appointment Date:01/13/2025 09:40:00 AM Scheduled Provider:MAG BLOUNT PA-C Location:[facility] Appointment Type:URO Office Visit Diagnostic Tests Pending * Urine Culture 10/15/24 [facility] Evaluation + Plan note Future Appointments Appointment Date:01/13/2025 09:40:00 AM Scheduled Provider:MAG BLOUNT PA-C Location:[facility] Appointment Type:URO Office Visit [facility] evaluation noteNo [facility] Other Evaluation note* Diagnosis Onset Date Resolution Status History of colon cancer acut e [facility] Work Phone: Evaluation note* Diagnosis Onset Date Resolution Status Hypokalemia acute Hypomagnesemia acute Stage 3 chronic kidney disease acute COVID noneactive Pneumonia noneactive [facility] Work Phone: Evaluation note* Diagnosis Moderate persistent asthma with exacerbation ([facility])- Primary Unspecified asthma, with exacerbation Non-recurrent acute suppurative otitis media of both ears without spontaneous rupture of tympanic membranes Colorectal cancer (CMS/HCC) Malignant neoplasm of colon, unspecified site Chronic heart failure with preserved ejection fraction (CMS/HCC) Pulmonary emphysema, unspecified emphysema type (CMS/HCC) Moderate episode of recurrent major depressive disorder (CMS/HCC)- Primary Moderate persistent asthma with exacerbation (CMS/HCC) Unspecified asthma, with exacerbation Medicare annual wellness visit, subsequent Severe persistent asthma with acute exacerbation ([facility]/HCC)- Primary Hospital discharge follow-up Other follow-up examination Severe persistent asthma without complication (CMS/HCC)- Primary Essential hypertension (CMS/HCC) Unspecified essential hypertension JEANNE (acute kidney injury) (CMS/HCC) Leukocytosis, unspecified type Chronic respiratory failure with hypoxia (CMS/HCC) Chronic bilateral low back pain without sciatica- Primary Vitamin D deficiency Chronic bilateral low back pain without sciatica- Primary Pneumonia due to infectious organism, unspecified laterality, unspecified part of lung- Primary Screening mammogram for breast cancer Chronic respiratory failure with hypoxia (CMS/HCC) Pulmonary emphysema, unspecified emphysema type ([facility]/HCC) Essential hypertension ([facility]/HCC) Unspecified essential hypertension Morbid obesity with BMI of 40.0-44.9, adult ([facility]) Hospital discharge follow-up- Primary Other follow-up examination Chronic respiratory failure with hypoxia (CMS/HCC) Severe persistent asthma without complication (CMS/HCC) Severe persistent asthma with acute exacerbation ([facility]/HCC)- Primary Severe persistent asthma with exacerbation ([facility]/HCC)- Primary Unspecified asthma, with exacerbation Hospital discharge follow-up- Primary Other follow-up examination Chronic respiratory failure with hypoxia ([facility])- Primary Hospital discharge follow-up Other follow-up examination Benign essential HTN ([facility]/HCC) Chronic heart failure with preserved ejection fraction (CMS/HCC) Severe persistent asthma without complication ([facility]/HCC) Moderate mixed hyperlipidemia not requiring statin therapy ([facility]/HCC) Morbid obesity with BMI of 40.0-44.9, adult ([facility]) Opioid use Chronic, continuous use of opioids Chronic back pain greater than 3 months duration Moderate persistent asthma with exacerbation (CMS/HCC)- Primary Unspecified asthma, with exacerbation Diarrhea, unspecified type documented in this encounter [facility] HealthcareEvaluation note* Diagnosis Moderate persistent asthma with exacerbation (CMS/HCC)- Primary Unspecified asthma, with exacerbation Non-recurrent acute suppurative otitis media of both ears without spontaneous rupture of tympanic membranes Colorectal cancer ([facility]/HCC) Malignant neoplasm of colon, unspecified site Chronic heart failure with preserved ejection fraction (CMS/HCC) Pulmonary emphysema, unspecified emphysema type (CMS/HCC) Moderate episode of recurrent major depressive disorder ([facility]/HCC)- Primary Moderate persistent asthma with exacerbation ([facility]/HCC) Unspecified asthma, with exacerbation Medicare annual wellness visit, subsequent Severe persistent asthma with acute exacerbation (CMS/HCC)- Primary Hospital discharge follow-up Other follow-up examination Severe persistent asthma without complication (CMS/HCC)- Primary Essential hypertension (CMS/HCC) Unspecified essential hypertension JEANNE (acute kidney injury) (CMS/HCC) Leukocytosis, unspecified type Chronic respiratory failure with hypoxia (CMS/HCC) Chronic bilateral low back pain without sciatica- Primary Vitamin D deficiency Chronic bilateral low back pain without sciatica- Primary Pneumonia due to infectious organism, unspecified laterality, unspecified part of lung- Primary Screening mammogram for breast cancer Chronic respiratory failure with hypoxia (CMS/HCC) Pulmonary emphysema, unspecified emphysema type ([facility]/HCC) Essential hypertension ([facility]/HCC) Unspecified essential hypertension Morbid obesity with BMI of 40.0-44.9, adult ([facility]) Hospital discharge follow-up- Primary Other follow-up examination Chronic respiratory failure with hypoxia (CMS/HCC) Severe persistent asthma without complication ([facility]/HCC) Severe persistent asthma with acute exacerbation ([facility]/HCC)- Primary Severe persistent asthma with exacerbation ([facility]/HCC)- Primary Unspecified asthma, with exacerbation Hospital discharge follow-up- Primary Other follow-up examination Chronic respiratory failure with hypoxia ([facility])- Primary Hospital discharge follow-up Other follow-up examination Benign essential HTN ([facility]/HCC) Chronic heart failure with preserved ejection fraction (CMS/HCC) Severe persistent asthma without complication ([facility]/HCC) Moderate mixed hyperlipidemia not requiring statin therapy ([facility]) Morbid obesity with BMI of 40.0-44.9, adult ([facility]) Opioid use Chronic, continuous use of opioids Chronic back pain greater than 3 months duration Restless leg syndrome Restless legs syndrome (RLS) documented in this encounter [facility] note* Diagnosis Moderate persistent asthma with exacerbation ([facility]/HCC)- Primary Unspecified asthma, with exacerbation Non-recurrent acute suppurative otitis media of both ears without spontaneous rupture of tympanic membranes Colorectal cancer ([facility]/HCC) Malignant neoplasm of colon, unspecified site Chronic heart failure with preserved ejection fraction ([facility]/HCC) Pulmonary emphysema, unspecified emphysema type ([facility]/HCC) Moderate episode of recurrent major depressive disorder ([facility]/HCC)- Primary Moderate persistent asthma with exacerbation ([facility]/HCC) Unspecified asthma, with exacerbation Medicare annual wellness visit, subsequent Severe persistent asthma with acute exacerbation ([facility]/HCC)- Primary Hospital discharge follow-up Other follow-up examination Severe persistent asthma without complication (CMS/HCC)- Primary Essential hypertension ([facility]/HCC) Unspecified essential hypertension JEANNE (acute kidney injury) ([facility]) Leukocytosis, unspecified type Chronic respiratory failure with hypoxia ([facility]/HCC) Chronic bilateral low back pain without sciatica- Primary Vitamin D deficiency Chronic bilateral low back pain without sciatica- Primary Pneumonia due to infectious organism, unspecified laterality, unspecified part of lung- Primary Screening mammogram for breast cancer Chronic respiratory failure with hypoxia ([facility]/HCC) Pulmonary emphysema, unspecified emphysema type ([facility]/HCC) Essential hypertension ([facility]/HCC) Unspecified essential hypertension Morbid obesity with BMI of 40.0-44.9, adult ([facility]) Hospital discharge follow-up- Primary Other follow-up examination Chronic respiratory failure with hypoxia (CMS/HCC) Severe persistent asthma without complication ([facility]/HCC) Severe persistent asthma with acute exacerbation ([facility]/HCC)- Primary Severe persistent asthma with exacerbation ([facility]/HCC)- Primary Unspecified asthma, with exacerbation Hospital discharge follow-up- Primary Other follow-up examination Chronic respiratory failure with hypoxia ([facility]/HCC)- Primary Hospital discharge follow-up Other follow-up examination Benign essential HTN ([facility]) Chronic heart failure with preserved ejection fraction ([facility]/HCC) Severe persistent asthma without complication ([facility]/HCC) Moderate mixed hyperlipidemia not requiring statin therapy ([facility]) Morbid obesity with BMI of 40.0-44.9, adult ([facility]) Opioid use Chronic, continuous use of opioids Chronic back pain greater than 3 months duration Gastroesophageal reflux disease without esophagitis Esophageal reflux documented in this encounter [facility] HealthcareEvaluation noteNo assessment information availableL[facility] Work Phone: Evaluation note* Diagnosis Moderate persistent asthma with exacerbation ([facility]/HCC)- Primary Unspecified asthma, with exacerbation Non-recurrent acute suppurative otitis media of both ears without spontaneous rupture of tympanic membranes Colorectal cancer ([facility]/HCC) Malignant neoplasm of colon, unspecified site Chronic heart failure with preserved ejection fraction ([facility]/HCC) Pulmonary emphysema, unspecified emphysema type ([facility]/HCC) Moderate episode of recurrent major depressive disorder ([facility]/HCC)- Primary Moderate persistent asthma with exacerbation ([facility]) Unspecified asthma, with exacerbation Medicare annual wellness visit, subsequent Severe persistent asthma with acute exacerbation ([facility]/HCC)- Primary Hospital discharge follow-up Other follow-up examination Severe persistent asthma without complication ([facility]/HCC)- Primary Essential hypertension ([facility] Unspecified essential hypertension JEANNE (acute kidney injury) ([facility]) Leukocytosis, unspecified type Chronic respiratory failure with hypoxia ([facility]) Chronic bilateral low back pain without sciatica- Primary Vitamin D deficiency Chronic bilateral low back pain without sciatica- Primary Pneumonia due to infectious organism, unspecified laterality, unspecified part of lung- Primary Screening mammogram for breast cancer Chronic respiratory failure with hypoxia ([facility]) Pulmonary emphysema, unspecified emphysema type ([facility]) Essential hypertension ([facility]) Unspecified essential hypertension Morbid obesity with BMI of 40.0-44.9, adult ([facility]) Hospital discharge follow-up- Primary Other follow-up examination Chronic respiratory failure with hypoxia ([facility]) Severe persistent asthma without complication ([facility]/HCC) Severe persistent asthma with acute exacerbation ([facility])- Primary Severe persistent asthma with exacerbation ([facility])- Primary Unspecified asthma, with exacerbation Hospital discharge follow-up- Primary Other follow-up examination Chronic respiratory failure with hypoxia ([facility])- Primary Hospital discharge follow-up Other follow-up examination Benign essential HTN ([facility] Chronic heart failure with preserved ejection fraction ([facility] Severe persistent asthma without complication ([facility] Moderate mixed hyperlipidemia not requiring statin therapy ([facility]) Morbid obesity with BMI of 40.0-44.9, adult ([facility]) Opioid use Chronic, continuous use of opioids Chronic back pain greater than 3 months duration Vaginal guero- Primary Candidiasis of vulva and vagina documented in this encounter [facility] HealthcareEvaluation note* Diagnosis Moderate persistent asthma with exacerbation ([facility])- Primary Unspecified asthma, with exacerbation Non-recurrent acute suppurative otitis media of both ears without spontaneous rupture of tympanic membranes Colorectal cancer ([facility]) Malignant neoplasm of colon, unspecified site Chronic heart failure with preserved ejection fraction ([facility]/HCC) Pulmonary emphysema, unspecified emphysema type ([facility]/HCC) Moderate episode of recurrent major depressive disorder ([facility])- Primary Moderate persistent asthma with exacerbation ([facility]) Unspecified asthma, with exacerbation Medicare annual wellness visit, subsequent Severe persistent asthma with acute exacerbation ([facility])- Primary Hospital discharge follow-up Other follow-up examination Severe persistent asthma without complication ([facility]/HCC)- Primary Essential hypertension ([facility] Unspecified essential hypertension JEANNE (acute kidney injury) ([facility]) Leukocytosis, unspecified type Chronic respiratory failure with hypoxia ([facility]) Chronic bilateral low back pain without sciatica- Primary Vitamin D deficiency Chronic bilateral low back pain without sciatica- Primary Pneumonia due to infectious organism, unspecified laterality, unspecified part of lung- Primary Screening mammogram for breast cancer Chronic respiratory failure with hypoxia ([facility]) Pulmonary emphysema, unspecified emphysema type ([facility]) Essential hypertension ([facility] Unspecified essential hypertension Morbid obesity with BMI of 40.0-44.9, adult ([facility]) Hospital discharge follow-up- Primary Other follow-up examination Chronic respiratory failure with hypoxia ([facility]) Severe persistent asthma without complication ([facility] Severe persistent asthma with acute exacerbation ([facility])- Primary Severe persistent asthma with exacerbation ([facility])- Primary Unspecified asthma, with exacerbation Hospital discharge follow-up- Primary Other follow-up examination Chronic respiratory failure with hypoxia ([facility])- Primary Hospital discharge follow-up Other follow-up examination Benign essential HTN ([facility] Chronic heart failure with preserved ejection fraction ([facility] Severe persistent asthma without complication ([facility]) Moderate mixed hyperlipidemia not requiring statin therapy ([facility]) Morbid obesity with BMI of 40.0-44.9, adult ([facility]) Opioid use Chronic, continuous use of opioids Chronic back pain greater than 3 months duration Restless leg syndrome Restless legs syndrome (RLS) documented in this encounter [facility] HealthcareEvaluation note* Diagnosis Moderate persistent asthma with exacerbation ([facility])- Primary Unspecified asthma, with exacerbation Non-recurrent acute suppurative otitis media of both ears without spontaneous rupture of tympanic membranes Colorectal cancer ([facility]) Malignant neoplasm of colon, unspecified site Chronic heart failure with preserved ejection fraction ([facility]) Pulmonary emphysema, unspecified emphysema type ([facility]) Moderate episode of recurrent major depressive disorder ([facility])- Primary Moderate persistent asthma with exacerbation ([facility]/HCC) Unspecified asthma, with exacerbation Medicare annual wellness visit, subsequent Severe persistent asthma with acute exacerbation ([facility]/HCC)- Primary Hospital discharge follow-up Other follow-up examination Severe persistent asthma without complication (CMS/HCC)- Primary Essential hypertension (CMS/HCC) Unspecified essential hypertension JEANNE (acute kidney injury) ([facility]/HCC) Leukocytosis, unspecified type Chronic respiratory failure with hypoxia (CMS/HCC) Chronic bilateral low back pain without sciatica- Primary Vitamin D deficiency Chronic bilateral low back pain without sciatica- Primary Pneumonia due to infectious organism, unspecified laterality, unspecified part of lung- Primary Screening mammogram for breast cancer Chronic respiratory failure with hypoxia (CMS/HCC) Pulmonary emphysema, unspecified emphysema type (CMS/HCC) Essential hypertension ([facility]/HCC) Unspecified essential hypertension Morbid obesity with BMI of 40.0-44.9, adult ([facility]) Hospital discharge follow-up- Primary Other follow-up examination Chronic respiratory failure with hypoxia (CMS/HCC) Severe persistent asthma without complication (CMS/HCC) Severe persistent asthma with acute exacerbation (CMS/HCC)- Primary Severe persistent asthma with exacerbation ([facility]/HCC)- Primary Unspecified asthma, with exacerbation Hospital discharge follow-up- Primary Other follow-up examination Chronic respiratory failure with hypoxia (CMS/HCC)- Primary Hospital discharge follow-up Other follow-up examination Benign essential HTN (CMS/HCC) Chronic heart failure with preserved ejection fraction (CMS/HCC) Severe persistent asthma without complication (CMS/HCC) Moderate mixed hyperlipidemia not requiring statin therapy ([facility]/HCC) Morbid obesity with BMI of 40.0-44.9, adult ([facility]) Opioid use Chronic, continuous use of opioids Chronic back pain greater than 3 months duration Urge incontinence- Primary Morbid obesity with BMI of 40.0-44.9, adult ([facility]) 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 Stage 3a chronic kidney disease (HCC) ([facility]/HCC) Chronic respiratory failure with hypoxia ([facility]/HCC) documented in this encounter [facility] HealthcareEvaluation note* Diagnosis Moderate persistent asthma with exacerbation (CMS/HCC)- Primary Unspecified asthma, with exacerbation Non-recurrent acute suppurative otitis media of both ears without spontaneous rupture of tympanic membranes Colorectal cancer (CMS/HCC) Malignant neoplasm of colon, unspecified site Chronic heart failure with preserved ejection fraction (CMS/HCC) Pulmonary emphysema, unspecified emphysema type (CMS/HCC) Moderate episode of recurrent major depressive disorder ([facility]/HCC)- Primary Moderate persistent asthma with exacerbation ([facility]) Unspecified asthma, with exacerbation Medicare annual wellness visit, subsequent Severe persistent asthma with acute exacerbation ([facility]/HCC)- Primary Hospital discharge follow-up Other follow-up examination Severe persistent asthma without complication (CMS/HCC)- Primary Essential hypertension ([facility]/HCC) Unspecified essential hypertension JEANNE (acute kidney injury) ([facility]) Leukocytosis, unspecified type Chronic respiratory failure with hypoxia ([facility]) Chronic bilateral low back pain without sciatica- Primary Vitamin D deficiency Chronic bilateral low back pain without sciatica- Primary Pneumonia due to infectious organism, unspecified laterality, unspecified part of lung- Primary Screening mammogram for breast cancer Chronic respiratory failure with hypoxia ([facility]) Pulmonary emphysema, unspecified emphysema type ([facility]) Essential hypertension ([facility] Unspecified essential hypertension Morbid obesity with BMI of 40.0-44.9, adult ([facility]) Hospital discharge follow-up- Primary Other follow-up examination Chronic respiratory failure with hypoxia ([facility]/HCC[facility] Severe persistent asthma without complication ([facility]HCC) Severe persistent asthma with acute exacerbation ([facility]HCC)- Primary Severe persistent asthma with exacerbation ([facility]CC)- Primary Unspecified asthma, with exacerbation Hospital discharge follow-up- Primary Other follow-up examination Chronic respiratory failure with hypoxia ([facility])- Primary Hospital discharge follow-up Other follow-up examination Benign essential HTN ([facility] Chronic heart failure with preserved ejection fraction ([facility]) Severe persistent asthma without complication ([facility]/HCC) Moderate mixed hyperlipidemia not requiring statin therapy ([facility]) Morbid obesity with BMI of 40.0-44.9, adult ([facility]) Opioid use Chronic, continuous use of opioids Chronic back pain greater than 3 months duration Urge incontinence- Primary Morbid obesity with BMI of 40.0-44.9, adult ([facility] 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 Stage 3a chronic kidney disease (HCC) ([facility] Chronic respiratory failure with hypoxia ([facility] Neoplasm of unspecified behavior of bone, soft tissue, and skin- Primary documented in this encounter [facility] HealthcareEvaluation note* Diagnosis Moderate persistent asthma with exacerbation ([facility]CC)- Primary Unspecified asthma, with exacerbation Non-recurrent acute suppurative otitis media of both ears without spontaneous rupture of tympanic membranes Colorectal cancer (CMS/HCC) Malignant neoplasm of colon, unspecified site Chronic heart failure with preserved ejection fraction (CMS/HCC) Pulmonary emphysema, unspecified emphysema type (CMS/HCC) Moderate episode of recurrent major depressive disorder (CMS/HCC)- Primary Moderate persistent asthma with exacerbation (CMS/HCC) Unspecified asthma, with exacerbation Medicare annual wellness visit, subsequent Severe persistent asthma with acute exacerbation (CMS/HCC)- Primary Hospital discharge follow-up Other follow-up examination Severe persistent asthma without complication (CMS/HCC)- Primary Essential hypertension (CMS/HCC) Unspecified essential hypertension JEANNE (acute kidney injury) (CMS/HCC) Leukocytosis, unspecified type Chronic respiratory failure with hypoxia (CMS/HCC) Chronic bilateral low back pain without sciatica- Primary Vitamin D deficiency Chronic bilateral low back pain without sciatica- Primary Pneumonia due to infectious organism, unspecified laterality, unspecified part of lung- Primary Screening mammogram for breast cancer Chronic respiratory failure with hypoxia (CMS/HCC) Pulmonary emphysema, unspecified emphysema type (CMS/HCC) Essential hypertension (CMS/HCC) Unspecified essential hypertension Morbid obesity with BMI of 40.0-44.9, adult ([facility]) Hospital discharge follow-up- Primary Other follow-up examination Chronic respiratory failure with hypoxia (CMS/HCC) Severe persistent asthma without complication (CMS/HCC) Severe persistent asthma with acute exacerbation (CMS/HCC)- Primary Severe persistent asthma with exacerbation (CMS/HCC)- Primary Unspecified asthma, with exacerbation Hospital discharge follow-up- Primary Other follow-up examination Chronic respiratory failure with hypoxia (CMS/HCC)- Primary Hospital discharge follow-up Other follow-up examination Benign essential HTN (CMS/HCC) Chronic heart failure with preserved ejection fraction (CMS/HCC) Severe persistent asthma without complication (CMS/HCC) Moderate mixed hyperlipidemia not requiring statin therapy (CMS/HCC) Morbid obesity with BMI of 40.0-44.9, adult ([facility]) Opioid use Chronic, continuous use of opioids Chronic back pain greater than 3 months duration Urge incontinence- Primary Morbid obesity with BMI of 40.0-44.9, adult ([facility]/HCC) 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 Stage 3a chronic kidney disease (HCC) (CMS/HCC) Chronic respiratory failure with hypoxia (CMS/HCC) Urge incontinence documented in this encounter [facility] HealthcareEvaluation note* Diagnosis Moderate persistent asthma with exacerbation (CMS/HCC)- Primary Unspecified asthma, with exacerbation Non-recurrent acute suppurative otitis media of both ears without spontaneous rupture of tympanic membranes Colorectal cancer (CMS/HCC) Malignant neoplasm of colon, unspecified site Chronic heart failure with preserved ejection fraction (CMS/HCC) Pulmonary emphysema, unspecified emphysema type (CMS/HCC) Moderate episode of recurrent major depressive disorder (CMS/HCC)- Primary Moderate persistent asthma with exacerbation (CMS/HCC) Unspecified asthma, with exacerbation Medicare annual wellness visit, subsequent Severe persistent asthma with acute exacerbation (CMS/HCC)- Primary Hospital discharge follow-up Other follow-up examination Severe persistent asthma without complication (CMS/HCC)- Primary Essential hypertension (CMS/HCC) Unspecified essential hypertension JEANNE (acute kidney injury) (CMS/HCC) Leukocytosis, unspecified type Chronic respiratory failure with hypoxia (CMS/HCC) Chronic bilateral low back pain without sciatica- Primary Vitamin D deficiency Chronic bilateral low back pain without sciatica- Primary Pneumonia due to infectious organism, unspecified laterality, unspecified part of lung- Primary Screening mammogram for breast cancer Chronic respiratory failure with hypoxia (CMS/HCC) Pulmonary emphysema, unspecified emphysema type (CMS/HCC) Essential hypertension ([facility]/HCC) Unspecified essential hypertension Morbid obesity with BMI of 40.0-44.9, adult ([facility]) Hospital discharge follow-up- Primary Other follow-up examination Chronic respiratory failure with hypoxia (CMS/HCC) Severe persistent asthma without complication (CMS/HCC) Severe persistent asthma with acute exacerbation (CMS/HCC)- Primary Severe persistent asthma with exacerbation ([facility]/HCC)- Primary Unspecified asthma, with exacerbation Hospital discharge follow-up- Primary Other follow-up examination Chronic respiratory failure with hypoxia (CMS/HCC)- Primary Hospital discharge follow-up Other follow-up examination Benign essential HTN (CMS/HCC) Chronic heart failure with preserved ejection fraction (CMS/HCC) Severe persistent asthma without complication (CMS/HCC) Moderate mixed hyperlipidemia not requiring statin therapy ([facility]/HCC) Morbid obesity with BMI of 40.0-44.9, adult ([facility]) Opioid use Chronic, continuous use of opioids Chronic back pain greater than 3 months duration Urge incontinence- Primary Morbid obesity with BMI of 40.0-44.9, adult ([facility]) 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 Stage 3a chronic kidney disease (HCC) (CMS/HCC) Chronic respiratory failure with hypoxia ([facility]/HCC) Moderate episode of recurrent major depressive disorder (CMS/HCC) documented in this encounter [facility] HealthcareEvaluation note* Diagnosis Benign essential HTN (CMS/HCC)- Primary Chronic heart failure with preserved ejection fraction (CMS/HCC) Severe persistent asthma without complication (CMS/HCC) Moderate mixed hyperlipidemia not requiring statin therapy (CMS/HCC) Morbid obesity with BMI of 40.0-44.9, adult ([facility]) documented in this encounter [facility] HealthcareEvaluation note* Diagnosis Chronic bilateral low back pain without sciatica documented in this encounter [facility] HealthcareEvaluation note* Diagnosis Moderate episode of recurrent major depressive disorder (HCC) (CMS/[facility]) Urge incontinence documented in this encounter [facility] HealthcareEvaluation note* Diagnosis Moderate persistent asthma with exacerbation ([facility]/HCC)- Primary Unspecified asthma, with exacerbation Non-recurrent acute suppurative otitis media of both ears without spontaneous rupture of tympanic membranes Colorectal cancer ([facility]/HCC) Malignant neoplasm of colon, unspecified site Chronic heart failure with preserved ejection fraction ([facility]/HCC) Pulmonary emphysema, unspecified emphysema type (CMS/HCC) Moderate episode of recurrent major depressive disorder (CMS/HCC)- Primary Moderate persistent asthma with exacerbation (CMS/HCC) Unspecified asthma, with exacerbation Medicare annual wellness visit, subsequent Severe persistent asthma with acute exacerbation ([facility])- Primary Hospital discharge follow-up Other follow-up examination Severe persistent asthma without complication (CMS/HCC)- Primary Essential hypertension (CMS/HCC) Unspecified essential hypertension JEANNE (acute kidney injury) ([facility]) Leukocytosis, unspecified type Chronic respiratory failure with hypoxia (CMS/HCC) Chronic bilateral low back pain without sciatica- Primary Vitamin D deficiency Chronic bilateral low back pain without sciatica- Primary Pneumonia due to infectious organism, unspecified laterality, unspecified part of lung- Primary Screening mammogram for breast cancer Chronic respiratory failure with hypoxia (CMS/HCC) Pulmonary emphysema, unspecified emphysema type (CMS/HCC) Essential hypertension ([facility]/HCC) Unspecified essential hypertension Morbid obesity with BMI of 40.0-44.9, adult ([facility]) Hospital discharge follow-up- Primary Other follow-up examination Chronic respiratory failure with hypoxia (CMS/HCC) Severe persistent asthma without complication (CMS/HCC) Severe persistent asthma with acute exacerbation (CMS/HCC)- Primary Severe persistent asthma with exacerbation ([facility]/HCC)- Primary Unspecified asthma, with exacerbation Hospital discharge follow-up- Primary Other follow-up examination Chronic respiratory failure with hypoxia ([facility]/HCC)- Primary Hospital discharge follow-up Other follow-up examination Benign essential HTN ([facility]/HCC) Chronic heart failure with preserved ejection fraction ([facility]/HCC) Severe persistent asthma without complication ([facility]/HCC) Moderate mixed hyperlipidemia not requiring statin therapy ([facility]) Morbid obesity with BMI of 40.0-44.9, adult ([facility]) Opioid use Chronic, continuous use of opioids Chronic back pain greater than 3 months duration Urge incontinence- Primary Morbid obesity with BMI of 40.0-44.9, adult ([facility]) 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 Stage 3a chronic kidney disease (HCC) ([facility]) Chronic respiratory failure with hypoxia ([facility]) Moderate episode of recurrent major depressive disorder ([facility]) Restless leg syndrome Restless legs syndrome (RLS) documented in this encounter [facility] HealthcareEvaluation note* Diagnosis Moderate persistent asthma with exacerbation ([facility])- Primary Unspecified asthma, with exacerbation Non-recurrent acute suppurative otitis media of both ears without spontaneous rupture of tympanic membranes Colorectal cancer ([facility]) Malignant neoplasm of colon, unspecified site Chronic heart failure with preserved ejection fraction ([facility]) Pulmonary emphysema, unspecified emphysema type ([facility]) Moderate episode of recurrent major depressive disorder ([facility])- Primary Moderate persistent asthma with exacerbation ([facility]) Unspecified asthma, with exacerbation Medicare annual wellness visit, subsequent Severe persistent asthma with acute exacerbation ([facility])- Primary Hospital discharge follow-up Other follow-up examination Severe persistent asthma without complication ([facility]/HCC)- Primary Essential hypertension ([facility] Unspecified essential hypertension JEANNE (acute kidney injury) ([facility]) Leukocytosis, unspecified type Chronic respiratory failure with hypoxia ([facility]) Chronic bilateral low back pain without sciatica- Primary Vitamin D deficiency Chronic bilateral low back pain without sciatica- Primary Pneumonia due to infectious organism, unspecified laterality, unspecified part of lung- Primary Screening mammogram for breast cancer Chronic respiratory failure with hypoxia ([facility]/HCC) Pulmonary emphysema, unspecified emphysema type ([facility]/HCC) Essential hypertension ([facility]/HCC) Unspecified essential hypertension Morbid obesity with BMI of 40.0-44.9, adult ([facility]) Hospital discharge follow-up- Primary Other follow-up examination Chronic respiratory failure with hypoxia (CMS/HCC) Severe persistent asthma without complication (CMS/HCC) Severe persistent asthma with acute exacerbation (CMS/HCC)- Primary Severe persistent asthma with exacerbation (CMS/HCC)- Primary Unspecified asthma, with exacerbation Hospital discharge follow-up- Primary Other follow-up examination Chronic respiratory failure with hypoxia (CMS/HCC)- Primary Hospital discharge follow-up Other follow-up examination Benign essential HTN (CMS/HCC) Chronic heart failure with preserved ejection fraction (CMS/HCC) Severe persistent asthma without complication (CMS/HCC) Moderate mixed hyperlipidemia not requiring statin therapy (CMS/HCC) Morbid obesity with BMI of 40.0-44.9, adult (CMS/HCC) Opioid use Chronic, continuous use of opioids Chronic back pain greater than 3 months duration Urge incontinence- Primary Morbid obesity with BMI of 40.0-44.9, adult ([facility]) 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 Stage 3a chronic kidney disease (HCC) (CMS/HCC) Chronic respiratory failure with hypoxia ([facility]/HCC) Chronic obstructive pulmonary disease with acute lower respiratory infection ([facility]/HCC)- Primary Primary HSV infection of mouth documented in this encounter [facility] HealthcareEvaluation note* Diagnosis Moderate persistent asthma with exacerbation (CMS/HCC)- Primary Unspecified asthma, with exacerbation Non-recurrent acute suppurative otitis media of both ears without spontaneous rupture of tympanic membranes Colorectal cancer (CMS/HCC) Malignant neoplasm of colon, unspecified site Chronic heart failure with preserved ejection fraction (CMS/HCC) Pulmonary emphysema, unspecified emphysema type (CMS/HCC) Moderate episode of recurrent major depressive disorder ([facility]/HCC)- Primary Moderate persistent asthma with exacerbation ([facility]/HCC) Unspecified asthma, with exacerbation Medicare annual wellness visit, subsequent Severe persistent asthma with acute exacerbation ([facility]/HCC)- Primary Hospital discharge follow-up Other follow-up examination Severe persistent asthma without complication (CMS/HCC)- Primary Essential hypertension (CMS/HCC) Unspecified essential hypertension JEANNE (acute kidney injury) (CMS/HCC) Leukocytosis, unspecified type Chronic respiratory failure with hypoxia (CMS/HCC) Chronic bilateral low back pain without sciatica- Primary Vitamin D deficiency Chronic bilateral low back pain without sciatica- Primary Pneumonia due to infectious organism, unspecified laterality, unspecified part of lung- Primary Screening mammogram for breast cancer Chronic respiratory failure with hypoxia (CMS/HCC) Pulmonary emphysema, unspecified emphysema type (CMS/HCC) Essential hypertension (CMS/HCC) Unspecified essential hypertension Morbid obesity with BMI of 40.0-44.9, adult ([facility]) Hospital discharge follow-up- Primary Other follow-up examination Chronic respiratory failure with hypoxia (CMS/HCC) Severe persistent asthma without complication (CMS/HCC) Severe persistent asthma with acute exacerbation (CMS/HCC)- Primary Severe persistent asthma with exacerbation (CMS/HCC)- Primary Unspecified asthma, with exacerbation Hospital discharge follow-up- Primary Other follow-up examination Chronic respiratory failure with hypoxia (CMS/HCC)- Primary Hospital discharge follow-up Other follow-up examination Benign essential HTN (CMS/HCC) Chronic heart failure with preserved ejection fraction (CMS/HCC) Severe persistent asthma without complication (CMS/HCC) Moderate mixed hyperlipidemia not requiring statin therapy (CMS/HCC) Morbid obesity with BMI of 40.0-44.9, adult ([facility]) Opioid use Chronic, continuous use of opioids Chronic back pain greater than 3 months duration Urge incontinence- Primary Morbid obesity with BMI of 40.0-44.9, adult ([facility]) 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 Stage 3a chronic kidney disease (HCC) (CMS/HCC) Chronic respiratory failure with hypoxia (CMS/HCC) Chronic obstructive pulmonary disease with acute lower respiratory infection ([facility]/HCC)- Primary Primary HSV infection of mouth Pulmonary emphysema, unspecified emphysema type ([facility]/HCC)- Primary documented in this encounter [facility] HealthcareEvaluation note* Diagnosis Moderate persistent asthma with exacerbation (CMS/HCC)- Primary Unspecified asthma, with exacerbation Non-recurrent acute suppurative otitis media of both ears without spontaneous rupture of tympanic membranes Colorectal cancer ([facility]/HCC) Malignant neoplasm of colon, unspecified site Chronic heart failure with preserved ejection fraction (CMS/HCC) Pulmonary emphysema, unspecified emphysema type (CMS/HCC) Moderate episode of recurrent major depressive disorder (CMS/HCC)- Primary Moderate persistent asthma with exacerbation (CMS/HCC) Unspecified asthma, with exacerbation Medicare annual wellness visit, subsequent Severe persistent asthma with acute exacerbation (CMS/HCC)- Primary Hospital discharge follow-up Other follow-up examination Severe persistent asthma without complication (CMS/HCC)- Primary Essential hypertension (CMS/HCC) Unspecified essential hypertension JEANNE (acute kidney injury) (CMS/HCC) Leukocytosis, unspecified type Chronic respiratory failure with hypoxia (CMS/HCC) Chronic bilateral low back pain without sciatica- Primary Vitamin D deficiency Chronic bilateral low back pain without sciatica- Primary Pneumonia due to infectious organism, unspecified laterality, unspecified part of lung- Primary Screening mammogram for breast cancer Chronic respiratory failure with hypoxia (CMS/HCC) Pulmonary emphysema, unspecified emphysema type (CMS/HCC) Essential hypertension ([facility]/HCC) Unspecified essential hypertension Morbid obesity with BMI of 40.0-44.9, adult ([facility]) Hospital discharge follow-up- Primary Other follow-up examination Chronic respiratory failure with hypoxia (CMS/HCC) Severe persistent asthma without complication (CMS/HCC) Severe persistent asthma with acute exacerbation (CMS/HCC)- Primary Severe persistent asthma with exacerbation (CMS/HCC)- Primary Unspecified asthma, with exacerbation Hospital discharge follow-up- Primary Other follow-up examination Chronic respiratory failure with hypoxia (CMS/HCC)- Primary Hospital discharge follow-up Other follow-up examination Benign essential HTN (CMS/[facility]) Chronic heart failure with preserved ejection fraction (CMS/HCC) Severe persistent asthma without complication (CMS/HCC) Moderate mixed hyperlipidemia not requiring statin therapy ([facility]) Morbid obesity with BMI of 40.0-44.9, adult ([facility]) Opioid use Chronic, continuous use of opioids Chronic back pain greater than 3 months duration Urge incontinence- Primary Morbid obesity with BMI of 40.0-44.9, adult ([facility]) 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 Stage 3a chronic kidney disease (HCC) ([facility]/HCC) Chronic respiratory failure with hypoxia ([facility]/HCC) Chronic obstructive pulmonary disease with acute lower respiratory infection ([facility])- Primary Primary HSV infection of mouth Pulmonary emphysema, unspecified emphysema type ([facility]/HCC)- Primary Gastroesophageal reflux disease without esophagitis Esophageal reflux documented in this encounter [facility] HealthcareEvaluation note* Diagnosis Moderate persistent asthma with exacerbation (CMS/HCC)- Primary Unspecified asthma, with exacerbation Non-recurrent acute suppurative otitis media of both ears without spontaneous rupture of tympanic membranes Colorectal cancer ([facility]/HCC) Malignant neoplasm of colon, unspecified site Chronic heart failure with preserved ejection fraction (CMS/HCC) Pulmonary emphysema, unspecified emphysema type ([facility]/HCC) Moderate episode of recurrent major depressive disorder (CMS/HCC)- Primary Moderate persistent asthma with exacerbation ([facility]/HCC) Unspecified asthma, with exacerbation Medicare annual wellness visit, subsequent Severe persistent asthma with acute exacerbation ([facility]/HCC)- Primary Hospital discharge follow-up Other follow-up examination Severe persistent asthma without complication (CMS/HCC)- Primary Essential hypertension (CMS/HCC) Unspecified essential hypertension JEANNE (acute kidney injury) (CMS/HCC) Leukocytosis, unspecified type Chronic respiratory failure with hypoxia (CMS/HCC) Chronic bilateral low back pain without sciatica- Primary Vitamin D deficiency Chronic bilateral low back pain without sciatica- Primary Pneumonia due to infectious organism, unspecified laterality, unspecified part of lung- Primary Screening mammogram for breast cancer Chronic respiratory failure with hypoxia (CMS/HCC) Pulmonary emphysema, unspecified emphysema type (CMS/HCC) Essential hypertension (CMS/HCC) Unspecified essential hypertension Morbid obesity with BMI of 40.0-44.9, adult ([facility]) Hospital discharge follow-up- Primary Other follow-up examination Chronic respiratory failure with hypoxia (CMS/HCC) Severe persistent asthma without complication (CMS/HCC) Severe persistent asthma with acute exacerbation (CMS/HCC)- Primary Severe persistent asthma with exacerbation ([facility]/HCC)- Primary Unspecified asthma, with exacerbation Hospital discharge follow-up- Primary Other follow-up examination Chronic respiratory failure with hypoxia (CMS/HCC)- Primary Hospital discharge follow-up Other follow-up examination Benign essential HTN (CMS/HCC) Chronic heart failure with preserved ejection fraction (CMS/HCC) Severe persistent asthma without complication (CMS/HCC) Moderate mixed hyperlipidemia not requiring statin therapy ([facility]/HCC) Morbid obesity with BMI of 40.0-44.9, adult ([facility]) Opioid use Chronic, continuous use of opioids Chronic back pain greater than 3 months duration Urge incontinence- Primary Morbid obesity with BMI of 40.0-44.9, adult ([facility]) 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 Stage 3a chronic kidney disease (HCC) ([facility]/HCC) Chronic respiratory failure with hypoxia (CMS/HCC) Chronic obstructive pulmonary disease with acute lower respiratory infection ([facility]/HCC)- Primary Primary HSV infection of mouth Pulmonary emphysema, unspecified emphysema type ([facility]/HCC)- Primary Restless leg syndrome Restless legs syndrome (RLS) documented in this encounter [facility]Evaluation [facility]* Diagnosis Moderate persistent asthma with exacerbation (CMS/HCC)- Primary Unspecified asthma, with exacerbation Non-recurrent acute suppurative otitis media of both ears without spontaneous rupture of tympanic membranes Colorectal cancer (CMS/HCC) Malignant neoplasm of colon, unspecified site Chronic heart failure with preserved ejection fraction (CMS/HCC) Pulmonary emphysema, unspecified emphysema type (CMS/HCC) Moderate episode of recurrent major depressive disorder (CMS/HCC)- Primary Moderate persistent asthma with exacerbation ([facility]/HCC) Unspecified asthma, with exacerbation Medicare annual wellness visit, subsequent Severe persistent asthma with acute exacerbation ([facility]/HCC)- Primary Hospital discharge follow-up Other follow-up examination Severe persistent asthma without complication (CMS/HCC)- Primary Essential hypertension (CMS/HCC) Unspecified essential hypertension JEANNE (acute kidney injury) ([facility]) Leukocytosis, unspecified type Chronic respiratory failure with hypoxia (CMS/HCC) Chronic bilateral low back pain without sciatica- Primary Vitamin D deficiency Chronic bilateral low back pain without sciatica- Primary Pneumonia due to infectious organism, unspecified laterality, unspecified part of lung- Primary Screening mammogram for breast cancer Chronic respiratory failure with hypoxia (CMS/HCC) Pulmonary emphysema, unspecified emphysema type ([facility]/HCC) Essential hypertension ([facility]/HCC) Unspecified essential hypertension Morbid obesity with BMI of 40.0-44.9, adult ([facility]) Hospital discharge follow-up- Primary Other follow-up examination Chronic respiratory failure with hypoxia (CMS/HCC) Severe persistent asthma without complication (CMS/HCC) Severe persistent asthma with acute exacerbation ([facility]/HCC)- Primary Severe persistent asthma with exacerbation ([facility]/HCC)- Primary Unspecified asthma, with exacerbation Hospital discharge follow-up- Primary Other follow-up examination Chronic respiratory failure with hypoxia ([facility]/HCC)- Primary Hospital discharge follow-up Other follow-up examination Benign essential HTN ([facility]/HCC) Chronic heart failure with preserved ejection fraction (CMS/HCC) Severe persistent asthma without complication ([facility]/HCC) Moderate mixed hyperlipidemia not requiring statin therapy ([facility]) Morbid obesity with BMI of 40.0-44.9, adult ([facility]) Opioid use Chronic, continuous use of opioids Chronic back pain greater than 3 months duration Urge incontinence- Primary Morbid obesity with BMI of 40.0-44.9, adult ([facility]) 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 Stage 3a chronic kidney disease (HCC) ([facility]/HCC) Chronic respiratory failure with hypoxia ([facility]/HCC) Chronic obstructive pulmonary disease with acute lower respiratory infection ([facility]/HCC)- Primary Primary HSV infection of mouth Pulmonary emphysema, unspecified emphysema type ([facility]/HCC)- Primary Nevus lipomatosus cutaneus superficialis- Primary Lipoma of other skin and subcutaneous tissue Squamous cell carcinoma of skin of chest documented in this encounter [facility] HealthcareEvaluation note* Diagnosis Moderate persistent asthma with exacerbation (CMS/HCC)- Primary Unspecified asthma, with exacerbation Non-recurrent acute suppurative otitis media of both ears without spontaneous rupture of tympanic membranes Colorectal cancer (CMS/HCC) Malignant neoplasm of colon, unspecified site Chronic heart failure with preserved ejection fraction (CMS/HCC) Pulmonary emphysema, unspecified emphysema type (CMS/HCC) Moderate episode of recurrent major depressive disorder (CMS/HCC)- Primary Moderate persistent asthma with exacerbation (CMS/HCC) Unspecified asthma, with exacerbation Medicare annual wellness visit, subsequent Severe persistent asthma with acute exacerbation ([facility]/HCC)- Primary Hospital discharge follow-up Other follow-up examination Severe persistent asthma without complication (CMS/HCC)- Primary Essential hypertension (CMS/HCC) Unspecified essential hypertension JEANNE (acute kidney injury) ([facility]) Leukocytosis, unspecified type Chronic respiratory failure with hypoxia (CMS/[facility]) Chronic bilateral low back pain without sciatica- Primary Vitamin D deficiency Chronic bilateral low back pain without sciatica- Primary Pneumonia due to infectious organism, unspecified laterality, unspecified part of lung- Primary Screening mammogram for breast cancer Chronic respiratory failure with hypoxia (CMS/HCC) Pulmonary emphysema, unspecified emphysema type ([facility]/HCC) Essential hypertension ([facility]/HCC) Unspecified essential hypertension Morbid obesity with BMI of 40.0-44.9, adult ([facility]) Hospital discharge follow-up- Primary Other follow-up examination Chronic respiratory failure with hypoxia (CMS/HCC) Severe persistent asthma without complication ([facility]/HCC) Severe persistent asthma with acute exacerbation ([facility]/HCC)- Primary Severe persistent asthma with exacerbation ([facility]/HCC)- Primary Unspecified asthma, with exacerbation Hospital discharge follow-up- Primary Other follow-up examination Chronic respiratory failure with hypoxia ([facility]/HCC)- Primary Hospital discharge follow-up Other follow-up examination Benign essential HTN (CMS/HCC) Chronic heart failure with preserved ejection fraction (CMS/HCC) Severe persistent asthma without complication (CMS/HCC) Moderate mixed hyperlipidemia not requiring statin therapy ([facility]/HCC) Morbid obesity with BMI of 40.0-44.9, adult ([facility]) Opioid use Chronic, continuous use of opioids Chronic back pain greater than 3 months duration Urge incontinence- Primary Morbid obesity with BMI of 40.0-44.9, adult (CMS/HCC) 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 Stage 3a chronic kidney disease (HCC) (CMS/HCC) Chronic respiratory failure with hypoxia (CMS/HCC) Chronic obstructive pulmonary disease with acute lower respiratory infection (CMS/HCC)- Primary Primary HSV infection of mouth Pulmonary emphysema, unspecified emphysema type (CMS/HCC)- Primary Moderate episode of recurrent major depressive disorder (CMS/HCC) Acute pain of right knee- Primary History of total right knee replacement documented in this encounter [facility] HealthcareEvaluation note* Diagnosis Moderate persistent asthma with exacerbation (CMS/HCC)- Primary Unspecified asthma, with exacerbation Non-recurrent acute suppurative otitis media of both ears without spontaneous rupture of tympanic membranes Colorectal cancer (CMS/HCC) Malignant neoplasm of colon, unspecified site Chronic heart failure with preserved ejection fraction (CMS/HCC) Pulmonary emphysema, unspecified emphysema type (CMS/HCC) Moderate episode of recurrent major depressive disorder (CMS/HCC)- Primary Moderate persistent asthma with exacerbation (CMS/HCC) Unspecified asthma, with exacerbation Medicare annual wellness visit, subsequent Severe persistent asthma with acute exacerbation (CMS/HCC)- Primary Hospital discharge follow-up Other follow-up examination Severe persistent asthma without complication (CMS/HCC)- Primary Essential hypertension (CMS/HCC) Unspecified essential hypertension JEANNE (acute kidney injury) (CMS/HCC) Leukocytosis, unspecified type Chronic respiratory failure with hypoxia (CMS/HCC) Chronic bilateral low back pain without sciatica- Primary Vitamin D deficiency Chronic bilateral low back pain without sciatica- Primary Pneumonia due to infectious organism, unspecified laterality, unspecified part of lung- Primary Screening mammogram for breast cancer Chronic respiratory failure with hypoxia (CMS/HCC) Pulmonary emphysema, unspecified emphysema type (CMS/HCC) Essential hypertension (CMS/HCC) Unspecified essential hypertension Morbid obesity with BMI of 40.0-44.9, adult (CMS/[facility]) Hospital discharge follow-up- Primary Other follow-up examination Chronic respiratory failure with hypoxia (CMS/HCC) Severe persistent asthma without complication (CMS/HCC) Severe persistent asthma with acute exacerbation (CMS/HCC)- Primary Severe persistent asthma with exacerbation (CMS/HCC)- Primary Unspecified asthma, with exacerbation Hospital discharge follow-up- Primary Other follow-up examination Chronic respiratory failure with hypoxia (CMS/HCC)- Primary Hospital discharge follow-up Other follow-up examination Benign essential HTN (CMS/HCC) Chronic heart failure with preserved ejection fraction ([facility]) Severe persistent asthma without complication ([facility]) Moderate mixed hyperlipidemia not requiring statin therapy ([facility]) Morbid obesity with BMI of 40.0-44.9, adult ([facility]) Opioid use Chronic, continuous use of opioids Chronic back pain greater than 3 months duration Urge incontinence- Primary Morbid obesity with BMI of 40.0-44.9, adult ([facility]) 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 Stage 3a chronic kidney disease (HCC) ([facility]) Chronic respiratory failure with hypoxia ([facility]) Chronic obstructive pulmonary disease with acute lower respiratory infection ([facility])- Primary Primary HSV infection of mouth Pulmonary emphysema, unspecified emphysema type ([facility])- Primary Acute pain of right knee- Primary History of total right knee replacement Right hip pain Pain in joint, pelvic region and thigh Arthritis of right hip documented in this encounter [facility] HealthcareEvaluation note* Diagnosis Moderate persistent asthma with exacerbation ([facility])- Primary Unspecified asthma, with exacerbation Non-recurrent acute suppurative otitis media of both ears without spontaneous rupture of tympanic membranes Colorectal cancer ([facility]) Malignant neoplasm of colon, unspecified site Chronic heart failure with preserved ejection fraction ([facility]) Pulmonary emphysema, unspecified emphysema type ([facility]) Moderate episode of recurrent major depressive disorder ([facility])- Primary Moderate persistent asthma with exacerbation ([facility]) Unspecified asthma, with exacerbation Medicare annual wellness visit, subsequent Severe persistent asthma with acute exacerbation ([facility])- Primary Hospital discharge follow-up Other follow-up examination Severe persistent asthma without complication ([facility])- Primary Essential hypertension ([facility]) Unspecified essential hypertension JEANNE (acute kidney injury) ([facility]) Leukocytosis, unspecified type Chronic respiratory failure with hypoxia ([facility]) Chronic bilateral low back pain without sciatica- Primary Vitamin D deficiency Chronic bilateral low back pain without sciatica- Primary Pneumonia due to infectious organism, unspecified laterality, unspecified part of lung- Primary Screening mammogram for breast cancer Chronic respiratory failure with hypoxia ([facility]) Pulmonary emphysema, unspecified emphysema type ([facility]/HCC) Essential hypertension ([facility]/HCC) Unspecified essential hypertension Morbid obesity with BMI of 40.0-44.9, adult ([facility]) Hospital discharge follow-up- Primary Other follow-up examination Chronic respiratory failure with hypoxia (CMS/HCC) Severe persistent asthma without complication ([facility]/HCC) Severe persistent asthma with acute exacerbation ([facility]/HCC)- Primary Severe persistent asthma with exacerbation ([facility]/HCC)- Primary Unspecified asthma, with exacerbation Hospital discharge follow-up- Primary Other follow-up examination Chronic respiratory failure with hypoxia ([facility]/HCC)- Primary Hospital discharge follow-up Other follow-up examination Benign essential HTN ([facility]/HCC) Chronic heart failure with preserved ejection fraction ([facility]/HCC) Severe persistent asthma without complication ([facility]/HCC) Moderate mixed hyperlipidemia not requiring statin therapy ([facility]/HCC) Morbid obesity with BMI of 40.0-44.9, adult ([facility]) Opioid use Chronic, continuous use of opioids Chronic back pain greater than 3 months duration Urge incontinence- Primary Morbid obesity with BMI of 40.0-44.9, adult ([facility]) 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 Stage 3a chronic kidney disease (HCC) ([facility]/HCC) Chronic respiratory failure with hypoxia ([facility]/HCC) Chronic obstructive pulmonary disease with acute lower respiratory infection ([facility])- Primary Primary HSV infection of mouth Pulmonary emphysema, unspecified emphysema type ([facility])- Primary Seborrheic keratosis- Primary History of SCC (squamous cell carcinoma) of skin Personal history of other malignant neoplasm of skin Lentigines [facility] - [facility] Type Description Date [...] Surgical History (R) TKA - DR SERRATO 10/18/ 8 Surgical History 1 INCH OF BONE OFF OF RIGHT BALTA T 2014 Surgical History LEFT HIP RESVISION 03/2020 Hospitalization History see above 2002,198 7 Hospitalization History 1 week during chemo 2003 Hospitalization History ISSUE WITH HIP C OMING OUT AND NEEDING TO PUT IT BACK IN 08/2019 Hospitalization History HIP REVISION 03/2020 [facility] Other History general Narrative - Reported* Type [...] Hospitalization History COVID X 2 WEEKS 04/2023 [facility] Other Hospital course Narrative No data available for this section [facility] Hospital Discharge instructions Additional Instructions DISCHARGE INSTRUCTIONS [...] if you have any problems. -Office number [phone] Work Phone: Hospital Discharge instructions No data available for this section [facility] Progress note No data available for this section [facility] Advance Directives No Advanced Directives Records Found [...] Stage 3 chronic kidney disease COVID Pneumonia Chief Complaint ^ ^ Left Eye Cataract Chief Complaint Admit Date ^ April 26, 2004 7:04 am ^ May 24, 2004 7:08 am Left Eye Cataract September 05, 2024 1 :01pm Left Eye Cataract September 12, 2024 1 0:31am Assessments No Assessments Information Available Summary Purpose [...] Specified Heart disease Unknown sister Hypertension Unknown Relationship Condition Age at Onset Recorded Date/T gladys father Cardiovascular disease Unknown Glaucoma Unknown Unknown Heart disease Unknown Hypertension Unknown mother Congestive heart failure Unknown brother Hypertension Unknown sister Hypertension Unknown Additional Source Comments Source Comments (unrecognize d section and content) In the event this informatio n is protected by the Federal Confidentiality of Alcohol and Drug Abuse Patient Records regulations: The Federal rules restrict any use of the information to criminally investigate or prosecute any alcohol or drug abuse patient.[facility] the event this information is protected by the Federal Confidentiality of Alcohol and Drug Abuse Patient Records regulations: The Federal rules restrict any use of the information to criminally investigate or prosecute any alcohol or drug abuse patient.[facility] the event this information is protected by the Federal Confidentiality of Alcohol and Drug Abuse Patient Records regulations: The Federal rules restrict any use of the information to criminally investigate or prosecute any alcohol or drug abuse patient.[facility] the event this information is protected by the Federal Confidentiality of Alcohol and Drug Abuse Patient Records regulations: The Federal rules restrict any use of the information to criminally investigate or prosecute any alcohol or drug abuse patient.[facility] INFORMATION SOURCE (unrecogn ized section and content) DATE CREATED AUTHOR 03/03/2022 [facility] DATE CREATED AUTHOR 'S KHADIJAH ATION 04/17/2023 [facility] [place] [facility] DATE CREATED AUTHOR AUTHOR'S ORGANIZ ATION 07/21/2024 [facility] DATE CREATED AUTHOR AUTHOR'S ORGANIZ ATION 10/18/2024 [facility] DATE CREATED AUTHOR AUTHOR'S ORGANIZ ATION 10/20/2024 [facility] DATE CREATED AUTHOR AUTHOR'S ORGANIZ ATION 10/21/2024 [facility] DATE CREATED AUTHOR AUTHOR'S ORGANIZ ATION 10/29/2024 [facility] DATE CREATED AUTHOR AUTHOR'S ORGANIZ ATION 11/18/2024 [facility] DATE CREATED AUTHOR AUTHOR'S ORGANIZ ATION 12/22/2024 [facility] EPIC REASON FOR VISIT (unrecogniz ed section and content) Reason Onset Date Comments Medication Question 08/12/2024 Med Refill 08/12/2024 Reason Onset Date Comments Med Refill 09/03/2024 Reason Comments Med Refill Reason Comments Follow-up She presents today f or a 3 month follow up for her asthma. 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 Pt does do chair exercises four times a week and walks (with walker) but due to her health conditions she is limited. Pt is in a wheelchair with very limited ambulation -SCR Reason Onset Date Comments Med Refill 07/17/2024 Reason Comments Cough Nausea Reason Comments Hospital Follow-up Reason Comments Follow-up Suspicious Skin Lesion Reason Comments Skin Check Care Teams (unrecognized sec tion and content) [...] March 14, 2024 End: March 14, 2024 Pneumatic Jack Operator Relationship Specialty Start Date End Date Tapan Zazueta MD [address] [place] [address] PCP - General Family Medicine 06/10/24 Ariella Mathis DO [address] [place] [address] Referring Physician Neurology 01/02/24 Aida Reese NP [address] [place] [address] Nurse Practitioner Family Medicine 06/10/24 Pneumatic Jack Operator Relationship Specialty Start Date End Date Tapan Zazueta MD [address] [place] [address] PCP - General Family Medicine 06/10/24 Ariella Mathis DO [address] [place] [address] Referring Physician Neurology 01/02/24 Aida Reese NP [address] [place] [address] Nurse Practitioner Family Medicine 06/10/24 Pneumatic Jack Operator Relationship Specialty Start Date End Date Tapan Zazueta MD [address] [place] [address] PCP - General Family Medicine 06/10/24 Ariella Mathis DO [address] [place] [address] Referring Physician Neurology 01/02/24 Aida Reese NP [address] [place] [address] Nurse Practitioner Family Medicine 06/10/24 Pneumatic Jack Operator Relationship Specialty Start Date End Date Tapan Zazueta MD [address] [place] [address] PCP - General Family Medicine 06/10/24 Ariella Mathis DO [address] [place] [address] Referring Physician Neurology 01/02/24 Aida Reese NP [address] [place] [address] Nurse Practitioner Family Medicine 06/10/24 Pneumatic Jack Operator Relationship Specialty Start Date End Date Tapan Zazueta MD [address] [place] [phone] PCP - General Family Medicine 06/10/24 Ariella Mathis DO [address] [place] [address] Referring Physician Neurology 01/02/24 Aida Reese NP [address] [place] [address] Nurse Practitioner Family Medicine 06/10/24 Team Status: Active Member Role Status Dates Aida Reese NP-C Primary Care Provider Ac tive Team Status: Active Member Role Status Dates Aida Reese NP-C Primary Care Provider Ac tive Start: June 29, 2024 Yunior Stock DO Attending Provider Active Sta rt: June 29, 2024 Team Status: Active Member Role Status Dates Aida Reese NP-C Primary Care Provider Ac tive Start: August 08, 2024 End: August 12, 2024 Yunior Stock DO Attending Provider Active Sta rt: August 08, 2024 End: August 12, 2024 Shaikh Lev MD Referring Provider Active Sta rt: August 08, 2024 End: August 12, 2024 Team Status: Inactive Member Role Status Dates Allan Lacey MD Attending Provider Active Start: September 05, 2024 End: September 05, 2024 Aida Reese PREPARER MAKING DEPARTMENT-C Primary Care Provider Ac tive Start: September 05, 2024 End: September 05, 2024 Pneumatic Jack Operator Relationship Specialty Start Date End Date Tapan Zazueta MD [address] [place] [address] PCP - General Family Medicine 06/10/24 Ariella Mathis DO [address] [place] [address] Referring Physician Neurology 01/02/24 Aida Reese NP [address] [place] [address] Nurse Practitioner Family Medicine 06/10/24 Pneumatic Jack Operator Relationship Specialty Start Date End Date Tapan Zazueta MD [address] [place] [address] PCP - General Family Medicine 06/10/24 Ariella Mathis DO [address] [place] [address] Referring Physician Neurology 01/02/24 Aida Reese NP [address] [place] [address] Nurse Practitioner Family Medicine 06/10/24 Pneumatic Jack Operator Relationship Specialty Start Date End Date Tapan Zazueta MD [address] [place] [address] PCP - General Family Medicine 06/10/24 Ariella Mathis DO [address] [place] [address] Referring Physician Neurology 01/02/24 Aida Reese NP [address] [place] [address] Nurse Practitioner Family Medicine 06/10/24 Pneumatic Jack Operator Relationship Specialty Start Date End Date Tapan Zazueta MD [address] [place] [address] PCP - General Family Medicine 06/10/24 Ariella Mathis DO [address] [place] [address] Referring Physician Neurology 01/02/24 Aida Reese NP [address] [place] [address] Nurse Practitioner Family Medicine 06/10/24 Pneumatic Jack Operator Relationship Specialty Start Date End Date Tapan Zazueta MD [address] [place] [address] PCP - General Family Medicine 06/10/24 Ariella Mathis DO [address] [place], [place] [id number] Referring Physician Neurology 01/02/24 Aida Reese NP [address] [place] [address] Nurse Practitioner Family Medicine 06/10/24 Pneumatic Jack Operator Relationship Specialty Start Date End Date Tapan Zazueta MD [address] [place] [address] PCP - General Family Medicine 06/10/24 Ariella Mathis DO [address] [place] [address] Referring Physician Neurology 01/02/24 Aida Reese NP [address] [place] [address] Nurse Practitioner Family Medicine 06/10/24 Pneumatic Jack Operator Relationship Specialty Start Date End Date Tapan Zazueta MD [address] [place] [address] PCP - General Family Medicine 06/10/24 Ariella Mathis DO [address], [place] [id number] Referring Physician Neurology 01/02/24 Aida Reese, RIKKI [address] [place] [address] Nurse Practitioner Family Medicine 06/10/24 Pneumatic Jack Operator Relationship Specialty Start Date End Date Tapan Zazueta MD [address] [place] [phone] PCP - General Family Medicine 06/10/24 Ariella Mathis DO [address] [place], [place] [id number] Referring Physician Neurology 01/02/24 Aida Reese, RIKKI [address] [place] [address] Nurse Practitioner Family Medicine 06/10/24 Pneumatic Jack Operator Relationship Specialty Start Date End Date Tapan Zazueta MD [address] [place] [address] PCP - General Family Medicine 06/10/24 Ariella Mathis DO [address] [place] [address] Referring Physician Neurology 01/02/24 Aida Reese NP [address] [place] [address] Nurse Practitioner Family Medicine 06/10/24 Pneumatic Jack Operator Relationship Specialty Start Date End Date Tapan Zazueta MD [address] [place] [address] PCP - General Family Medicine 06/10/24 Ariella Mathis DO [address] [place] [address] Referring Physician Neurology 01/02/24 Aida Reese NP [address] [place] [address] Nurse Practitioner Family Medicine 06/10/24 Pneumatic Jack Operator Relationship Specialty Start Date End Date Tapan Zazueta MD [address] [place] [address] PCP - General Family Medicine 06/10/24 Ariella Mathis DO [address] [place] [address] Referring Physician Neurology 01/02/24 Aida Reese NP [address] [place] [address] Nurse Practitioner Family Medicine 06/10/24 Pneumatic Jack Operator Relationship Specialty Start Date End Date Tapan Zazueta MD [address] [place] [address] PCP - General Family Medicine 06/10/24 Ariella Mathis DO [address] [place], [place] [address] Referring Physician Neurology 01/02/24 Aida Reese NP [address] [place] [address] Nurse Practitioner Family Medicine 06/10/24 Pneumatic Jack Operator Relationship Specialty Start Date End Date Tapan Zazueta MD [address] [place] [address] PCP - General Family Medicine 06/10/24 Ariella Mathis DO [address] [place], [place] [id number] Referring Physician Neurology 01/02/24 Aida Reese NP [address] [place] [address] Nurse Practitioner Family Medicine 06/10/24 Pneumatic Jack Operator Relationship Specialty Start Date End Date Tapan Zazueta MD [address] [place] [address] PCP - General Family Medicine 06/10/24 Ariella Mathis DO [address] [place], [place] [address] Referring Physician Neurology 01/02/24 Aida Reese NP [address] [place] [address] Nurse Practitioner Family Medicine 06/10/24 Pneumatic Jack Operator Relationship Specialty Start Date End Date Tapan Zazueta MD [address] [place] [address] PCP - General Family Medicine 06/10/24 Ariella Mathis DO [address] [place], [place] [address] Referring Physician Neurology 01/02/24 Aida Reese NP [address] [place] [address] Nurse Practitioner Family Medicine 06/10/24 Team Status: Inactive Member Role Status Dates Allan Lacey MD Attending Provider Active Start: September 12, 2024 End: September 12, 2024 Aida Reese NP-C Primary Care Provider Ac tive Start: September 12, 2024 End: September 12, 2024 Pneumatic Jack Operator Relationship Specialty Start Date End Date Tapan Zazueta MD [address] [place] [address] PCP - General Family Medicine 06/10/24 Ariella Mathis DO [address] [place], [place] [address] Referring Physician Neurology 01/02/24 Aida Reese NP [address] [place] [address] Nurse Practitioner Family Medicine 06/10/24 Pneumatic Jack Operator Relationship Specialty Start Date End Date Tapan Zazueta MD [address] [place] [address] PCP - General Family Medicine 06/10/24 Ariella Mathis DO [address] [place], [place] [address] Referring Physician Neurology 01/02/24 Aida Reese NP [address] [place] [address] Nurse Practitioner Family Medicine 06/10/24 Pneumatic Jack Operator Relationship Specialty Start Date End Date Tapan Zazueta MD [address] [place] [address] PCP - General Family Medicine 06/10/24 Ariella Mathis DO [address] [place], [place] [id number] Referring Physician Neurology 01/02/24 Aida Reese, RIKKI [address] [place] [address] Nurse Practitioner Family Medicine 06/10/24 Pneumatic Jack Operator Relationship Specialty Start Date End Date Tapan Zazueta MD [address] [place] [address] PCP - General Family Medicine 06/10/24 Ariella Mathis DO [address], [place] [address] Referring Physician Neurology 01/02/24 Aida Reese NP [address] [place] [address] Nurse Practitioner Family Medicine 06/10/24 Pneumatic Jack Operator Relationship Specialty Start Date End Date Tapan Zazueta MD [address] [place] [address] PCP - General Family Medicine 06/10/24 Ariella Mathis DO [address] [place] [address] Referring Physician Neurology 01/02/24 Aida Reese NP [address] [place] [address] Nurse Practitioner Family Medicine 06/10/24 Goals (unrecognized section and content) Goals may [...] BE BASED ON THE PRIMARY CLINICAL RECORDS. [employer] provides no warranty or guarantee of the accuracy or completeness of information in this document.
--- NOTE | 2025-01-02 18:53 | PC.NURSE ---
pt transport to admitting room 214 at this time. pt denies needs prior to admission. bedside nurse to nurse report given to Gay CHRISTIANSON. all questions answered.
[2025-01-02 19:17] LABS: Influenza Virus A Antigen Negative; Influenza Virus B Antigen Negative; Internal Control Within Normal Limits
[2025-01-02 19:18] LABS: Internal Control Within Normal Limits; SARS-CoV-2 Ag NEGATIVE (NEGATIVE)
[2025-01-02 19:38] LABS: Internal Control Within Normal Limits; Respiratory Syncytial Virus Not Detected (NOT DETECTE)
[2025-01-02] MEDS: POTASSIUM CHLORIDE 10 MEQ ER TABLET 20 MEQ PO (21:34)
[2025-01-02] MEDS: ACETAMINOPHEN 325 MG TABLET 650 MG PO (21:34)
[2025-01-02] MEDS: HEPARIN SODIUM (PORCINE) 5,000 UNIT/ML VIAL 5000 UNIT SUBQ (21:34)
[2025-01-02] MEDS: TRAZODONE HCL 50 MG TABLET 100 MG PO (21:34)
[2025-01-02] MEDS: LATANOPROST 0.005% 2.5 ML BOTTLE 1 DROP OP (21:34)
[2025-01-02] MEDS: PREGABALIN 75 MG CAPSULE PO (21:34)
[2025-01-02] MEDS: BACLOFEN 10 MG TABLET PO (21:36)
[2025-01-02] MEDS: BUDESONIDE 0.5 MG/2 ML AMPULE NEB IH (22:49)
[2025-01-02] MEDS: METHYLPREDNISOLONE SOD SUCC PF 40 MG/ML VIAL IVP (23:02)
[2025-01-03] VITALS (23 sets, daily range): BP systolic 117–169; BP diastolic 69–104; PULSE 58–107; TEMP 36.5–36.8; O2SAT 88–94
[2025-01-03] MEDS: BACLOFEN 10 MG TABLET PO ×3 (05:14→21:38)
[2025-01-03] MEDS: METHYLPREDNISOLONE SOD SUCC PF 40 MG/ML VIAL IVP ×3 (05:14→17:21)
[2025-01-03] MEDS: IPRATROPIUM/ALBUTEROL SULFATE 3 ML AMPUL.NEB IH ×4 (05:25→22:46)
[2025-01-03 05:44] LABS: Hematocrit 35.3 % (36.0-48.0); Hemoglobin 11.2 g/dL (12.0-16.0); Mean Corpuscular HGB Conc 31.7 g/dL (29.9-35.2); Mean Corpuscular Hemoglobin 29.8 pg (26.7-34.0); Mean Corpuscular Volume 93.9 fL (81.0-99.0); Mean Platelet Volume 9.2 fL (9.5-13.5); Platelet Count 238 10^3/uL (150-450); Red Blood Count 3.76 10^6/uL (4.20-5.40); Red Cell Distribution Width 13.8 % (11.0-15.0); White Blood Count 7.8 10^3/uL (4.0-11.0)
[2025-01-03 06:04] LABS: Alanine Aminotransferase 16 U/L (14-59); Albumin Globulin Ratio 0.5; Albumin Level 2.1 g/dL (3.4-5.0); Alkaline Phosphatase 93 U/L (46-116); Anion Gap 11.1; Aspartate Amino Transferase 10 U/L (15-37); BUN Creatinine Ratio 7.5; Bilirubin Total 0.2 mg/dL (0.2-1.0); Calcium 8.5 mg/dL (8.5-10.1); Carbon Dioxide 28.9 mmol/L (21.0-32.0); Chloride 105 mmol/L (98-107); Estimated GFR (African America >60 (>=60 mL/min/1.73m^2); Estimated GFR (Non-African Ame 60 (>=60 mL/min/1.73m^2); Globulin 4.2 g/dL; Glucose 198 mg/dL (74-106); Magnesium 1.7 mg/dL (1.8-2.4); Sodium 141 mmol/L (136-145); Total Protein 6.3 g/dL (6.4-8.2)
[2025-01-03 06:08] LABS: Band Neutrophils Absolute 0.2 10^3/uL (0.0-0.3); Lymphocytes Absolute Manual 0.31 10^3/uL (1.20-3.80); Monocytes Absolute Manual 0.07 10^3/uL (0.30-0.80); Segmented Neut Absolute Manual 7.25 10^3/uL (1.4-6.5)
--- OUTSIDE RECORDS SUMMARY | 2025-01-03 06:10 | XMS_ITS | CCD ---
Author Organization [facility] Inform ion [facility] Care Team Providers Care Warehouse Record Clerk Name Role Phone Steph Collier Attending Provider Unavailable Chantel Rainey Primary Care Provider Unavailabl e JoanaHerberth Attending Provider Unavailable Unavailable Primary Care Provider Unavailabl e UNKNOWN, PHYSICIAN Referring Unavailable JOO LINN Attending Unavailable JOO LINN Admitting Unavailable UNKNOWN, PHYSICIAN Primary Care Unavailable Rena Hurd Unavailable Joana, Herberth Unavailable Gato Domingo Unavailable [phone] Steph Collier Attending Provider [phone] MD Gato Domingo Attending Provider [phone] MD Nicky Ohara Primary Care Provider Gilma Trent Unavailable JOANA, HERBERTH Attending Unavailable JOANA, HERBERTH Admitting Unavailable FAWWAD, MESSER H Primary Care Unavailable HERBERTH BERNARD Consulting Unavailable SAM ., BO Admitting Unavailable FAWWAD, MESSER H Primary Care Unavailable FAWWAD, MESSER H Consulting Unavailable JOHNY Rendon, BO Attending Unavailable BRITTANY GALDAMEZ Consulting Unavailable ISABEL ., DR SANTIAGO Admitting Unavailabl e KARBLANCA ., DR SANTIAGO Attending Unavailabl e KARBLANCA ., DR SANTIAGO Consulting Unavailabl e FAWANASTASIA, MESSER H Primary Care Unavailable TOLEDO, DR BRITTANY Elizondo Consulting Unavailable DARWIN, DR [...] H Consulting Unavailable Steph Collier Attending Provider Gijamaraitis , Andrius Vytautas Attending Unavailable Giedraitis MD, Andrius Vytautas Attending Unavailable Giedraitis MD, Andrius Vytautas Attending Unavailable Giedraitis MD, Andrius Vytautas Attending Unavailable Giedraitis MD, Andrius Vytautas Attending Unavailable Giedraitis MD, Andrius Vytautas Attending Unavailable Giedraitis MD, Andrius Vytautas Attending Unavailable Giedraitis , Andrius Vytautas Attending Unavailable Giedraitis , Andrius Vytautas Attending Unavailable Ariella Mathis DO Unavailable Tapan Zazueta MD Primary Care Provider [phone] Katherine Reese NPtany Unavailable MD Allan Lacey Attending Provider KELI Reese [facility] Primary Care Provid er MAG BLOUNT Attending Unavailable MAG BLOUNT Attending Unavailable AIDA REESE Referring Unavailabl e MAG BLOUNT Attending Unavailable MAG BLOUNT Admitting Unavailable TAPAN ZAZUETA Primary Care Physician HETAL CHURCH Attending Unavailable STEFANIEBALLDebby, EMELIA Attending Unavailable OMBALLI, EMELIA Attending Unavailable SAMBO DAN Referring Unavailable OMBALLI, EMELIA Attending Unavailable OMBALLI, EMELIA Referring Unavailable RADHAGHULAM Referring Unavailable OMBALLI, EMELIA Admitting Unavailable OMBALLI, EMELIA Attending Unavailable OMQUINCY, EMELIA Referring Unavailable Deepthi DRAPER, Allan Boone Attending Provider Mary Ann TOE PUNCHER-C, Aida N Primary Care Provid er Allan Lacey Attending Unavailable Mary Ann [facility] Primary Care Unavaila ble Allan Lacey Admitting Unavailable Allan Lacey Attending Unavailable Mary Ann [facility] Primary Care Unavaila ble Allan Lacey Admitting Unavailable RAMIN BOWERS Attending Unavailable RAMIN BOWERS Referring Unavailable RAMIN BOWERS Referring Unavailable JESSICA LAZO Attending Unavailable SHAIKH OHARA Attending Unavailable AIDA REESE Attending Unavailabl e AIDA REESE Attending Unavailabl e AIDA REESE Attending Unavailabl e SHAIKH OHARA Attending Unavailable JESSICA LAZO Attending Unavailable KAYLENE LÓPEZ Attending Unavailable SHAIKH OHARA Attending Unavailable JAYNA GOODE Attending Unavailable AIDA REESE Referring Unavailabl e SHAIKH OHARA Attending Unavailable AIDA REESE Attending Unavailtori e REESEAIDA SINHA Attending Unavailtori e AIDA REESE Attending Jimi e SHAIKH OHARA Attending Unavailable FASHAIKH PANG Attending Unavailable SHAIKH OHARA Attending Unavailable ReeseAida de los santos NP Unavailable [phone] Unavailable Unavailable Unavailable Allergies Allergy Classification Reported Allergen(s) Allergy Type Date of Onset Reaction(s) Facility (20 sources) fentaNYL; Translations: [fentaNYL] Drug Allergy 07-07-20 17 Hallucinations (finding) [facility] (1 source) linezolid; Translations: [LINEZOLID] Drug Allergy 03-17-20 20 [facility] (20 sources) Vancomycin; Translations: [VANCOMYCIN] Drug Allergy 03-17-20 Unknown [facility] (14 sources) DENIES METAL SENSITITIVITY Propensity to adverse reactions 03-14-20 24 Unknown, Unknown Reaction [facility] Medications Current Medications Medication Drug [...] 14, 2024 12:00am Start: 12-08-2022 End: 03-14-2024 Pepbpftlpxw-Hphkntlki-Ejgntq er (Trelegy Ellipta) 200-62.5-25 mcg blister with device Discontinued 1 INH INHALATION As Directed December 08, 2022 12:00am March 14, 2024 9:40am Start: 12-08-2022 End: 03-14-2024 Itduliusasl-Dsxfbules-Geqoxj er (Trelegy Ellipta) 200-62.5-25 mcg blister with [...] . Active take 1 tablet by bessie th every twelve hours guaiFENesin ER 600 MG [...] Start: 03-14-2024 take 1 capsule by mo [facility] twice daily Omeprazole 20 mg capsule,delayed release(DR/EC) Active 20 MG PO Twice daily March 13, 2024 11:00pm Start: 07-07-2017 End: 03-14-2024 take 1 tablet by mouth once daily Omeprazole 20 mg Tablet,Delayed Release (Dr/Ec) Discontinued 20 MG PO Daily July 06, 2017 11:00pm March 14, 2024 9:41am take 1 capsule by [facility] every twelve hours Omeprazole 20 MG 1 CAPSULE Orally TWICE A DAY Active take 1 capsule by mo [facility] once daily Omeprazole 20 MG 1 [...] 1 puff(s) by inhalation twice daily Ipratropium [place] (Atrovent Hfa) 17 mcg/actuation Hfa Aerosol Inhaler [...] tablet Discontinued 50 MG PO Twice daily 180 April 10, 2024 3:50pm September 05, 2024 [...] Asthma; Translations: [Unspecified asthma, uncomplicated] Onset: 3 Resolved: 5 10-04-2023 Chronic Cancer of colon (20 sources) [...] disorder; Translations: [Essential (primary) hypertension] Onset: 4 Resolved: 5 10-04-2023 Chronic Fluid and electrolyte disorders (10 [...] nutritional; endocrine; and metabolic disorders (5 sources) Obesity caused by energy imbalance; Translations: [Morbid (severe) obesity due to excess calories] Onset: 3 01-02-2025 Chronic Other nutritional; endocrine; and metabolic disorders [...] secondary pulmonary hypertension] Onset: 3 12-05-2023 Chronic Residual codes; unclassified (4 sources) Viral syndrome; Translations: [Other general symptoms and signs] Onset: 5 01-02-2025 Episodic Respiratory failure; insufficiency; arrest (adult) (20 sources) [...] sources) Malignant colorectal neoplasm 10-15-2024 Viral infection (20 sources) COVID-19; Translations: [Other specified viral infection] Onset: 5 03-14-2024 Episodic Viral infection (1 source) COVID-19; Translations: [COVID-19] Onset: 3 Past or Other Problems Problem Classification Problem Date Documented Da te Episodic/Chronic Acute and unspecified renal failure (20 sources) Acute renal failure syndrome; Translations: [Acute kidney failure, unspecified] Onset: 12-28-2023 Resolved: 01-02-2025 12-28-2023 Episodic Cardiac dysrhythmias (20 sources) Atrial [...] rupture of ear drum, bilateral] Onset: 10-04-2023 Resolved: 01-02-2025 10-04-2023 Episodic Pneumonia (except that caused by [...] lumbar region without neurogenic claudication] Onset: 03-24-2023 Resolved: 01-02-2025 Episodic Unclassified (1 source) CONTACT W/AND (SUSP) EXPOS COVID-19; Translations: [CONTACT W/AND (SUSP) EXPOS COVID-19] Onset: 04-04-2023 Unclassified (1 source) ACUTE COUGH; Translations: [ACUTE COUGH] Onset: 02-22-2023 Unclassified (1 source) CHRN KIDNEY DISEASE STG 3 UNSP; Translations: [CHRN KIDNEY DISEASE STG 3 UNSP] Onset: 08-19-2022 Results Test Name Value Interpretation Reference Range Facility Laboratory - Microbiology an d Antimicrobial susceptibilityon 01-02-2025 SARS-CoV-2 (COVID-19) RNA KAYLEE+probe Ql (Unsp spec) Negative [facility] No Panel Informationon 01-02 FLU A Negative [facility] FLU B Negative [facility] Interpretation and review of laboratory results Normal [facility] XR Hip - right 3 [facility] Result: AP and Lateral right hip No acute fracture Mild SI joint arthritic changes Pt has severe arthritis to right hip joint with subchondral cyst and sclerosis to femoral head and acetabulum. Stable hardware left hip on AP view Impression: Severe right hip arthritis. [facility] Radiology Study observation (narrative) [facility] XR Knee - right 1 or [...] dislocation. Impression: Unremarkable right total knee arthroplasty [facility] Radiology Study observation (narrative) [facility] No Panel Informationon 12-13 Complexity: simple Destruction method: cryotherapy Informed consent: discussed and consent obtained Informed consent comment: The risks of the procedure were discussed, including, but not limited to risks of scarring, darker or water pump servicer pigmentary changes, recurrence, infection, and incomplete removal [...] or tenderness. Additional details: Previous accession number: [id number] [facility] No Panel InformationOrdered By: Pat Mcfarland on 12-13-2024 [facility] Work Phone: Abstracton 10-24-2024 Abstract [id number] Nell Champion chioma Fan 1955 F Date Provider Department Center 10/24/2024 Nicholas-EMELIA YOO ONC DCC Family History Problem Relation Age of Onset Heart failure Mother Heart disease Father Family Status - Relation Status Age at Mother Father Normal [facility] C Urineon 10-18-2024 Bacteria identified Cx Nom (U) Microbiology PROCEDURE: Urine Culture [R1] SOURCE: U Random BODY SITE: COLLECTED DATE/TIME: 10/15/2024 15:40 EST RECEIVED DATE/TIME: 10/16/2024 17:42 EST START DATE/TIME: 10/16/2024 17:42 EST FREE TEXT SOURCE: MAG BLOUNT PA-C, PA-C, MAG Hester FINAL REPORTS Final Report [...] Locations R1: This test was performed at: [facility], [address] [place] [address], [phone]- , , Normal [facility] Comment on above: Performed By: #### [id number] #### [facility] [address] [place] [id number] Ambulatory Visit Summaryon 1 12-16-2023 Ambulatory Visit Summary Ambulatory Visit Summary CHAMPIONDIANA :1955 Visit Date:10/15/2024 Ambulatory Visit Instructions Your Diagnosis Urge incontinence Your Care Team Attending Physician - MAG BLOUNT PA-C Primary Care Physician - CARLITA DRAPER, TAPAN Referring Physician - MARY ANN, MS. AIDA [...] Follow-Up Appointments Monday 9:40 AM EDT With: JOSE ALEJANDRO MICHAUD, MAG Hester Where: [facility] [address] [place] [address]- Medications What How Much When Instructions Unchanged [...] you for choosing us for your care. [facility] No Panel Informationon 10-11 Type of biopsy: [...] taken Amount of lidocaine used: 0.5 cc Cartela [email or web address] 36on 09-20-2024 36 Faxed to [facility]. Ticker put in for Nov 2024 for patient to be scheduled with Dr. Church. [facility] 36on 09-12-2024 36 Patient called requesting clearance prior to cataract surgery. 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 Please advise. Thanks. [facility] EPITHELIAL CELLSon 4 Epithelial cells LM Ql (Urine sed) Epithelial Cells Few [facility] No Panel Informationon 08-13 [facility] RESULT 1on 08-13-2024 RESULT 1 Result 1 Moderate budding yeast present. [facility] RESULT 2on 08-13-2024 RESULT 2 Result 2 Few gram positive cocci [facility] RESULT 3on 08-13-2024 RESULT 3 Result 3 TOE PUNCHER [facility] RESULT 4on 08-13-2024 RESULT 4 Result 4 TOE PUNCHER [facility] WHITE BLOOD CELLSon 08-13-20 24 WHITE BLOOD CELLS White Blood Cells [facility] WHITE BLOOD CELLS Few [facility] ALL CBC WITH AUTO DIFFon BASOPHILS ABSOLUTE AUTO 0.1 [facility] Basophils/100 WBC (Bld) 0.5 % 0.2 - 2.0 % [facility] Eosinophils/100 WBC (Bld) 1.5 % 0.9 - 7.0 % [facility] Erythrocyte distribution width (RBC) [Ratio] 13.0 % 11.0 - 15.0 % [facility] Hematocrit (Bld) [Volume fraction] 39.0 % 36.0 - 48.0 % [facility] Hemoglobin (Bld) [Mass/Vol] 12.2 g/dL 12.0 - 16.0 g/dL [facility] IMMATURE GRANULOCYTES ABS AUTO 0.22 High [facility] Immature granulocytes/100 WBC (Bld) 2.4 % High 0.0 - 0.5 % [facility] Interpretation and review of laboratory results Abnormal [facility] LYMPHOCYTES ABSOLUTE AUTO 1.6 [facility] Lymphocytes/100 WBC (Bld) 17.2 % Low 20.5 - 60.0 % [facility] MCH (RBC) [Entitic mass] 29.7 pg 26.7 - 34.0 pg [facility] MCHC (RBC) [Mass/Vol] 31.3 g/dL 29.9 - 35.2 g/dL [facility] MCV (RBC) [Entitic vol] 94.9 fL 81.0 - 99.0 fL [facility] MONOCYTES ABSOLUTE AUTO 0.8 [facility] Monocytes/100 WBC (Bld) 8.3 % 1.7 - 12.0 % [facility] NEUTROPHILS ABSOLUTE AUTO 6.4 [facility] Neutrophils/100 WBC (Bld) 70.1 % 43.0 - 75.0 % [facility] Platelet mean volume (Bld) [Entitic vol] 8.8 fL Low 9.5 - 13.5 fL [facility] TB EO # 0.1 [facility] TBH PLT 266 [facility] TBH RBC 4.11 Low [facility] TB WBC 9.1 [facility] Telemedicineon 07-11-2024 Telemedicine [id number] Nell Champion 1955 F Date Provider Department Center 07/11/2024 383-EMELIA YOO ONC DCC Family History Problem Relation Age of Onset Heart failure Mother Heart disease Father Family Status - Relation Status Age at Mother Father Level of Service:40650 MT PHYS/QHP TELEPHONE EVALUATION 21-30 MIN () Reason for Visit and Comments: Telehealth Phone Visit [872] - Tracheobronchomalacia follow up per Dr Canseco. [facility] HPon 07-02-2024 HP H&P reviewed. The patient was examined and [...] PSYCH: appropriate mood, affect, and judgement. Normal [facility] NURSNOTEon 07-02-2024 [facility] Matthew Vargas May resume a Regular Diet and home medications. Normal [facility] NURSNOTE Bronchoscopy Finding s: Tracheobronchomalacia Normal [facility] Telephoneon 06-27-2024 Telephone [id number] Nell Champion 1955 F Date Provider Department Center 06/27/2024 Catina-SOURAV ESCOBAR ONC [facility] Family History Problem Relation Age of Onset Heart failure Mother Heart disease Father Family Status - Relation Status Age at Mother Father Normal [facility] Prep for Procedureon 06-26- 024 Prep for Procedure [id number] Nell Champion 1955 F Date Provider Department Center 06/26/2024 EMELIA MORALES [facility] Family History Problem Relation Age of Onset Heart failure Mother Heart disease Father Family Status - Relation Status Age at Mother Father Normal [facility] HPon 06-25-2024 HP ---- -------- Attestation signed [...] Age: 68 y.o. : 1955 Account No.: [id number] Referring physician: Dr. Bo Mcclain Chief complaint: Recurreny pneumonia HPI Diana Champion is a 68 y.o. female with PMHx of reportedly COPD, chronic hypoxic respiratory failure on 2L home O2 who is presenting to clinic as a new patient after being referred by Dr. Bo Baker of [facility]. Patient has been admitted 4 times [...] years. 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 Yes Historical Provider, bokjcdqjgoo-qegjkuakq-og lanter 100-62.5-25 mcg blister with device Yes [...] mEq ER ta (more content not included)... [facility] Telemedicineon 06-25-2024 Telemedicine [id number] Nell Champion 1955 F Date Provider Department Center 06/25/2024 Nicholas-EMELIA YOO [facility] ONC DCC Family History Problem Relation Age of Onset Heart failure Mother Heart disease Father Family Status - Relation Status Age at Mother Father Level of Service:62407 MT PHYS/QHP TELEPHONE EVALUATION 21-30 MIN () Reason for Visit and Comments: New Patient [632] - TOE PUNCHER REFERRED BY BO 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 CT DONE 04-11-24 AND 06-07-24 AT [facility]. RECORDS SCANNED INTO MEDIA. FILMS REQUESTED- requested 3 times and [employer] IS DOWN. Could not get films. Normal [facility] Office Visiton 05-13-2024 Follow-up visit [id number] Nell Champion 1955 F Date Provider Department Center 05/13/2024 271-HETAL CHURCH RAINA CARD Blair Baker Family History Problem Relation Age of Onset Heart failure Mother Heart disease Father Family Status - Relation Status Age at Mother Father Level of Service:47597 MT OFFICE/OUTPATIENT ESTABLISHED MOD MDM 30 MIN Normal [facility] Erythrocyte distribution wid th Auto (RBC) [Ratio]on 03-06-2024 Erythrocyte distribution width (RBC) [Ratio] 13.2 % 11.0-15.0 [facility] Estimated glomerular filtrat ion rate (GFR) non- Americanon 03-06-2024 GFR/1.73 sq M.predicted among non-blacks MDRD (S/P/Bld) [Vol rate/Area] 57 mL/min/{1.73_m2} >=60 [facility] Hematocrit Auto (Bld) [Volum e fraction]on 03-06-2024 Hematocrit (Bld) [Volume fraction] 38.7 % 36.0-48.0 [facility] Hemoglobin [Mass/volume] in Bloodon 03-06-2024 Hemoglobin (Bld) [Mass/Vol] 12.2 g/dL 12.0-16.0 [facility] Laboratory - Chemistry and C hemistry - challengeon 03-06-2024 Albumin [Mass/Vol] 3.0 g/dL 3.4-5.0 [facility] Calcium [Mass/Vol] 8.8 mg/dL 8.5-10.1 [facility] Chloride [Moles/Vol] 104 mmol/L 98-107 [facility] CO2 [Moles/Vol] 32.2 mmol/L 21.0-32.0 [facility] Creatinine [Mass/Vol] 0.97 mg/dL 0.55-1.02 [facility] GFR/1.73 sq M.predicted MDRD (S/P/Bld) [Vol rate/Area] mL/min/{1.73_m2} >=60 [facility] Glucose [Mass/Vol] 67 mg/dL 74-106 [facility] Magnesium [Mass/Vol] 1.9 mg/dL 1.8-2.4 [facility] Potassium [Moles/Vol] 3.4 mmol/L 3.5-5.1 [facility] Sodium [Moles/Vol] 143 mmol/L 136-145 [facility] Urate [Mass/Vol] 5.0 mg/dL 2.6-6.0 [facility] Urea nitrogen [Mass/Vol] 16.0 mg/dL 7.0-18.0 [facility] Urea nitrogen/Creatinine [Mass ratio] 16.5 mg/mg [facility] Leukocytes [#/volume] correc melanie for nucleated erythrocytes in Blood by Automated counon 03-06-2024 WBC corrected for nucl RBC Auto (Bld) [#/Vol] 8.1 10 3/uL 4.0-11.0 [facility] MCH Auto (RBC) [Entitic mass ]on 03-06-2024 MCH (RBC) [Entitic mass] 30.4 pg 26.7-34.0 [facility] MCHC Auto (RBC) [Mass/Vol]on 03-06-2024 MCHC (RBC) [Mass/Vol] 31.5 g/dL 29.9-35.2 [facility] MCV Auto (RBC) [Entitic vol] on 03-06-2024 MCV (RBC) [Entitic vol] 96.5 fL 81.0-99.0 [facility] No Panel Informationon 03-06 Urine Random Creatinine 63.27 mg/dL 20.00-300.00 [facility] Urine Random Total Protein <6.0 mg/dL <=11.9 [facility] 25-Hydroxy Vitamin D Total 37.1 ng/mL [facility] Comment on above: <20 ng/mL Vit D defi cient20-<30 ng/mL Vit D ulezrzrdhloz09-024 ng/mL Vit D sufficient>100 ng/mL Potential Toxicity Parathyroid Hormone (Intact) 36 pg/mL 15-65 [facility] Comment on above: Performed at: [address] [id number] Director: Raphael Marrero PhD, Phone: [phone] Phosphorus Level 3.2 mg/dL 2.6-4.7 [facility] Platelet mean volume Auto (B ld) [Entitic vol]on 03-06-2024 Platelet mean volume (Bld) [Entitic vol] 9.1 fL 9.5-13.5 [facility] Platelets Auto (Bld) [#/Vol] on 03-06-2024 Platelets (Bld) [#/Vol] 247 10 3/uL 150-450 [facility] RBC Auto (Bld) [#/Vol]on RBC (Bld) [#/Vol] 4.01 10 6/uL 4.20-5.40 [facility] Serum or plasma anion gap de terminationon 03-06-2024 Anion gap [Moles/Vol] 10.2 mmol/L [facility] SYMPTOMATIC COVID-19 ANTIGEN on 04-04-2023 EUA Statement SEE BELOW Normal [facility] Comment on above: Result [...] sooner. Performed By: #### C VDAGS #### [facility] [address] [place] [address] Shayne Roldan SARS-CoV-2 (COVID-19) RNA KAYLEE+probe Ql (Unsp spec) Positive Abnormal NEGATIVE [facility] Comment on above: Performed By: #### C VDAGS #### [facility] [address] [place], [place] [id number] Dr. Shayne Roldan XR LSPINE 2_3 VIEWSon [...] STEPH GRANADOS Date: 2023-03-24 12:52 Normal [facility] PTH INTACTon 02-27-2023 PTH, Intact 87 pg/mL Critically high 15-65 [facility] Comment on above: Performed By: #### P THINT #### [facility] [address] [place] [address] Dr. Shayne Roldan HEMOGRAM AND PLATELon 2022 Hematocrit (Bld) [Volume fraction] 44.4 % Normal 36.0-48.0 [facility] Comment on above: Performed By: #### H H #### [facility] [address] [place] [address] Dr. Shayne Roldan Hemoglobin (Bld) [Mass/Vol] 14.5 g/dL Normal 12.0-16.0 [facility] Comment on above: Performed By: #### H H #### [facility] [address] [place] [address] Dr. Shayne Roldan MCH (RBC) [Entitic mass] 30.3 pg Normal 26.7-34.0 [facility] Comment on above: Performed By: #### H H #### [facility] [address] [place] [address] Dr. Shayne Roldan MCHC (RBC) [Mass/Vol] 32.7 g/dL Normal 29.9-35.2 [facility] Comment on above: Performed By: #### H H #### [facility] [address] [address] [address] Shayne Roldan MCV (RBC) [Entitic vol] 92.9 fL Normal 81.0-99.0 [facility] Comment on above: Performed By: #### H H #### [facility] [address] [address] [address] Shayne Roldan PLT 367 103/ul Normal 150-450 [facility] Comment on above: Performed By: #### H H #### [facility] [address] [address] [address] Shayne Roldan RBC 4.78 106/ul Normal 4.20-5.40 [facility] Comment on above: Performed By: #### H H #### [facility] [address] [place] [address] Dr. Shayne Roldan WBC 9.9 103/ul Normal 4.0-11.0 [facility] Comment on above: Performed By: #### H H #### [facility] [address] [place] [address] Dr. Shayne Roldan MAGNESIUMon 02-25-2023 Magnesium [Mass/Vol] 1.6 mg/dL Critically low 1.8-2.4 [facility] Comment on above: Performed By: #### M G, RENAL, URIC #### [facility] [address] [place] [address] Dr. Shayne Roldan RENAL FUNCTION PANELon 02-25 Albumin [Mass/Vol] 3.4 g/dL Normal 3.4-5.[address] [facility] Comment on above: Performed By: #### M G, RENAL, URIC #### [facility] [address] [address] [address] Shayne Roldan Calcium [Mass/Vol] 8.7 mg/dL Normal 8.5-10.[address] [facility] Comment on above: Performed By: #### M G, RENAL, URIC #### [facility] [address] [place] [address] Dr. Shayne Roldan Chloride [Moles/Vol] 104 mmol/L Normal 98-107 [facility] Comment on above: Performed By: #### M G, RENAL, URIC #### [facility] [address] [address] [address] Shayne Roldan CO2 [Moles/Vol] 25.9 mmol/L Normal 21.0-32.0 [facility] Comment on above: Performed By: #### M G, RENAL, URIC #### [facility] [address] [place] [address] Dr. Shayne Roldan Creatinine [Mass/Vol] 1.19 mg/dL Critically high 0.55-1.02 [facility] Comment on above: Performed By: #### M G, RENAL, URIC #### [facility] [address] [place] [address] Dr. Shayne Roldan EGFR-AF BANGLADESHI 55 mL/min/1.73m2 Critically low >=60 [facility] Comment on above: Performed By: #### M G, RENAL, URIC #### [facility] [address] [place] [address] Dr. Shayne Roldan EGFR-NON AF BANGLADESHI 45 mL/min/1.73m2 Critically low >=60 [facility] Comment on above: Performed By: #### M G, RENAL, URIC #### [facility] [address] [place] [address] Dr. Shayne Roldan Glucose [Mass/Vol] 193 mg/dL Critically high 74-106 [facility] Comment on above: Performed By: #### M G, RENAL, URIC #### [facility] [address] [place] [address] Dr. Shayne Roldan Phosphate [Mass/Vol] 3.2 mg/dL Normal 2.6-4.7 [facility] Comment on above: Performed By: #### M G, RENAL, URIC #### [facility] [address] [place] [address] Dr. Shayne Roldan Potassium [Moles/Vol] 3.9 mmol/L Normal 3.5-5.1 [facility] Comment on above: Performed By: #### M G, RENAL, URIC #### [facility] [address] [place], [place] [id number] Dr. Shayne Roldan Sodium [Moles/Vol] 140 mmol/L Normal 136-[address] [facility] Comment on above: Performed By: #### M G, RENAL, URIC #### [facility] [address] [place] [address] Dr. Shayne Roldan Urea nitrogen [Mass/Vol] 17.0 mg/dL Normal 7.0-18.0 [facility] Comment on above: Performed By: #### M G, RENAL, URIC #### [facility] [address] [place] [address] Dr. Shayne Roldan UA RANDOM W/MICROSCOPICon BACTERIA TRACE Abnormal NONE SEEN [facility] Comment on above: Performed By: #### M G, RENAL, URIC #### [facility] [address] [place] [address] Dr. Shayne Roldan Bilirubin Ql (U) Negative Normal NEGATIVE [facility] Comment on above: Performed By: #### M G, RENAL, URIC #### [facility] [address] [place] [address] Dr. Shayne Roldan CAST NONE SEEN Normal NONE SEEN [facility] Comment on above: Performed By: #### M G, RENAL, URIC #### [facility] [address] [place] [address] Dr. Shayne Roldan Clarity (U) CLEAR Normal CLEAR [facility] Comment on above: Performed By: #### M G, RENAL, URIC #### [facility] [address] [place] [address] Dr. Shayne Roldan Color (U) LT. YELLOW Normal YELLOW [facility] Comment on above: Performed By: #### M G, RENAL, URIC #### [facility] [address] [address] [address] Shayne Roldan Crystals LM Nom (Urine sed) NONE SEEN Normal NONE SEEN [facility] Comment on above: Performed By: #### M G, RENAL, URIC #### [facility] [address] [place] [address] Dr. Shayne Roldan Epithelial cells LM Ql (Urine sed) RARE Normal NONE SEEN /RARE [facility] Comment on above: Performed By: #### M G, RENAL, URIC #### [facility] [address] [address] [address] Shayne Roldan Glucose Ql (U) Negative Normal NEGATIVE [facility] Comment on above: Performed By: #### M G, RENAL, URIC #### [facility] [address] [address] [address] Shayne Roldan Hemoglobin Ql (U) Negative Normal NEGATIVE [facility] Comment on above: Performed By: #### M G, RENAL, URIC #### [facility] [address] [address] [address] Shayne Roldan Ketones Ql (U) Negative Normal NEGATIVE [facility] Comment on above: Performed By: #### M G, RENAL, URIC #### [facility] [address] [address] [address] Shayne Roldan LEUKOCYTES Negative Normal NEGATIVE [facility] Comment on above: Performed By: #### M G, RENAL, URIC #### [facility] [address] [address] [address] Shayne Roldan MUCOUS NONE SEEN Normal NONE SEEN [facility] Comment on above: Performed By: #### M G, RENAL, URIC #### [facility] [address] [address] [address] Shayne Roldan Nitrite Ql (U) Negative Normal NEGATIVE [facility] Comment on above: Performed By: #### M G, RENAL, URIC #### [facility] [address] [address] [address] Shayne Roldan pH (U) 5.0 [pH] Normal 5-9 [facility] Comment on above: Performed By: #### M G, RENAL, URIC #### [facility] [address] [address] [address] Shayne Roldan RBC 0-2 Normal 0-2 [facility] Comment on above: Performed By: #### M G, RENAL, URIC #### [facility] [address] [address] [address] Shayne Roldan SPEC GRAVITY 1.025 Normal 1.005-<=1.02 5 [facility] Comment on above: Performed By: #### M G, RENAL, URIC #### [facility] [address] [address] [address] Shayne Roldan UA PROTEIN Negative Normal NEGATIVE/ TRACE [facility] Comment on above: Performed By: #### M G, RENAL, URIC #### [facility] [address] [place] [address] Dr. Shayne Roldan Urobilinogen Qn (U) 0.2 {Rogelio'U}/dL Normal 0.2 - 1. 0 [facility] Comment on above: Performed By: #### M G, RENAL, URIC #### [facility] [address] [place] [address] Dr. Shayne Roldan WBC 0-2 Abnormal NONE SEEN [facility] Comment on above: Performed By: #### M G, RENAL, URIC #### [facility] [address] [place] [address] Dr. Shayne Roldan URIC ACID SERUMon 02-25-2023 Urate [Mass/Vol] 6.1 mg/dL Critically high 2.6-6.0 [facility] Comment on above: Performed By: #### M G, RENAL, URIC #### [facility] [address] [place] [address] Dr. Shayne Roldan URINE T PROTEIN CREAT RATIOo n 02-25-2023 Protein (U) [Mass/Vol] 13.0 mg/dL Critically high <=12.0 [facility] Comment on above: Performed By: #### M G, RENAL, URIC #### [facility] [address] [place] [address] Dr. Shayne Roldan UR PROT CREAT RAT 0.16 Normal [facility] Comment on above: Performed By: #### M G, RENAL, URIC #### [facility] [address] [place] [address] Dr. Shayne Roldan URINE CREAT 83.60 mg/dL Normal 20.00-300.00 [facility] Comment on above: Performed By: #### M G, RENAL, URIC #### [facility] [address], [place] [address] Dr. Shayne Roldan VITAMIN D 25 OHon 02-25-2023 VIT D 25-OH 41.6 ng/mL Normal [facility] Comment on above: Performed By: #### M G, RENAL, URIC #### [facility] [address], [place] [address] Dr. Shayne Roldan VIT D RANGES SEE BELOW Normal [facility] Comment on above: Result Comment: <20 ng/mL Vit D deficient 20 - <30 ng/mL Vit D insufficient 30 - 100 ng/mL Vit D sufficient >100 ng/mL Potential Toxicity Performed By: #### M G, RENAL, URIC #### [facility] [address], [place] [address] Dr. Shayne Roldan XR CHEST 2 Von [...] BRITTANY GALDAMEZ Date: 2023-02-22 16:15 Normal [facility] MAMM SCREEN 3D PRATEEK CADon 12-15-2022 MAMM SCREEN 3D PRATEEK CAD Patient: DIANA CHAMPION Exam Date: 12/15/2022 : 1955 Gender:F Ordering : DR JACK HALL . Admission #: [id number] Family : Order #: [id number] CLICK HERE TO VIEW EXAM RADIOLOGY REPORT PROCEDURE: MAMMOGRAM SCREENING 3D BILATERAL CAD COMPARISON: MG MAMM SCREEN 3D PRATEEK CAD, 11/26/2021. INDICATIONS: Calculator Name NCI Breast Cancer Risk Assessment Tool 5 Year Breast Cancer Risk 1.20% Lifetime Breast Cancer Risk 4.40% Personal Breast Cancer No Personal Ovarian Cancer No Treatments Excision, radiation, chemotherapy Family Cancers None LOCATION: [facility] BREAST COMPOSITION: Almost entirely fatty. FINDINGS: [...] Walters MD on 12/15/2022 at 10:51 Normal [facility] XR DEXA BONE DENSITYon 12-15 XR DEXA [...] authenticated by: STEPH GRANADOS Date: 2022-12-15 09:50 [facility] PAP ACOG PANEL 2: 30 to 65on 11-16-2022 . . Normal [facility] Comment on above: Performed By: #### [id number] #### [facility] [address] [place] [address] Dr. Shayne Roldan Age Gdln ACOG Testing Comment Normal [facility] Comment on above: Result Comment: <21 or >65 or no age provided Performed By: #### [id number] #### [facility] [address] [place] [address] Dr. Shayne Roldan DIAGNOSIS: Comment [facility] Comment on above: Result Comment: NEGA TIVE FOR INTRAEPITHELIAL LESION OR MALIGNANCY. Performed By: #### [id number] #### [facility] [address] [place] [address] Dr. Shayne Roldan Methodology: Comment Normal [facility] Comment on above: Result Comment: This liquid based ThinPrep(R) pap test was screened with the use of an image guided system. Performed By: #### [id number] #### [facility] [address] [place] [address] Dr. Shayne Roldan Note: Comment Normal [facility] Comment on above: Result Comment: The Pap smear is a screening test designed to aid in the detection of premalignant and malignant conditions of the uterine cervix. It is not a diagnostic procedure and should not be used as the sole means of detecting cervical cancer. Both false-positive and false-negative reports do occur. . Performed By: #### [id number] #### [facility] [address] [place] [address] Dr. Shayne Roldan Performed by: Comment Normal [facility] Comment on above: Result Comment: Onur Aguilar Mechanic/Welder (ASCP) Performed By: #### [id number] #### [facility] [address] [place] [address] Dr. Shayne Roldan Specimen adequacy: Comment Normal [facility] Comment on above: Result Comment: Sati sfactory for evaluation. Endocervical and/or squamous metaplastic cells (endocervical component) are present. Performed By: #### [id number] #### [facility] [address] [place] [address] Dr. Shayne Roldan RENAL FUNCTION PANELon 08-19 Albumin [Mass/Vol] 3.4 g/dL Normal 3.4-5.0 [facility] Comment on above: Performed By: #### M G, RENAL, URIC #### [facility] [address] [place] [address] Dr. Shayne Roldan Calcium [Mass/Vol] 8.4 mg/dL Critically low 8.5-10.1 [facility] Comment on above: Performed By: #### M G, RENAL, URIC #### [facility] [address] [place] [address] Dr. Shayne Roldan Chloride [Moles/Vol] 103 mmol/L Normal 98-107 [facility] Comment on above: Performed By: #### M G, RENAL, URIC #### [facility] [address] [address] [address] Shayne Roldan CO2 [Moles/Vol] 27.8 mmol/L Normal 21.0-32.0 [facility] Comment on above: Performed By: #### M G, RENAL, URIC #### [facility] [address] [address] [address] Shayne Roldan Creatinine [Mass/Vol] 1.02 mg/dL Normal 0.55-1.02 [facility] Comment on above: Performed By: #### M G, RENAL, URIC #### [facility] [address] [address] [address] Shayne Roldan EGFR-AF BANGLADESHI >60 Normal >=60 [facility] Comment on above: Performed By: #### M G, RENAL, URIC #### [facility] [address] [address] [address] Shayne Roldan EGFR-NON AF BANGLADESHI 54 mL/min/1.73m2 Critically low >=60 [facility] Comment on above: Performed By: #### M G, RENAL, URIC #### [facility] [address] [address] [address] Shayne Roldan Glucose [Mass/Vol] 110 mg/dL Critically high 74-106 [facility] Comment on above: Performed By: #### M G, RENAL, URIC #### [facility] [address] [address] [address] Shayne Roldan Phosphate [Mass/Vol] 2.3 mg/dL Critically low 2.6-4.7 [facility] Comment on above: Performed By: #### M G, RENAL, URIC #### [facility] [address] [address] [address] Shayne Roldan Potassium [Moles/Vol] 3.2 mmol/L Critically low 3.5-5.1 [facility] Comment on above: Performed By: #### M G, RENAL, URIC #### [facility] [address] [address] [address] Shayne Roldan Sodium [Moles/Vol] 138 mmol/L Normal 136-145 [facility] Comment on above: Performed By: #### M G, RENAL, URIC #### [facility] [address] [place] [address] Dr. Shayne Roldan Urea nitrogen [Mass/Vol] 14.0 mg/dL Normal 7.0-18.0 [facility] Comment on above: Performed By: #### M G, RENAL, URIC #### [facility] [address] [place] [address] Dr. Shayne Roldan PTH INTACTon 08-06-2022 PTH, Intact 40 pg/mL Normal 15-65 [facility] Comment on above: Performed By: #### M G, RENAL, URIC #### [facility] [address] [place] [address] Dr. Shayne Roldan HEMOGRAM AND PLATELon 2021 Hematocrit (Bld) [Volume fraction] 39.8 % Normal 36.0-48.0 [facility] Comment on above: Performed By: #### M G, RENAL, URIC #### [facility] [address] [place] [address] Dr. Shayne Roldan Hemoglobin (Bld) [Mass/Vol] 13.4 g/dL Normal 12.0-16.0 [facility] Comment on above: Performed By: #### M G, RENAL, URIC #### [facility] [address] [place] [address] Dr. Shayne Roldan MCH (RBC) [Entitic mass] 30.5 pg Normal 26.7-34.0 [facility] Comment on above: Performed By: #### M G, RENAL, URIC #### [facility] [address] [place] [address] Dr. Shayne Roldan MCHC (RBC) [Mass/Vol] 33.7 g/dL Normal 29.9-35.2 [facility] Comment on above: Performed By: #### M G, RENAL, URIC #### [facility] [address] [place] [address] Dr. Shayne Roldan MCV (RBC) [Entitic vol] 90.5 fL Normal 81.0-99.0 [facility] Comment on above: Performed By: #### M G, RENAL, URIC #### [facility] [address] [place] [address] Dr. Shayne Roldan PLT 299 103/ul Normal 150-450 [facility] Comment on above: Performed By: #### M G, RENAL, URIC #### [facility] [address] [place] [address] Dr. Shayne Roldan RBC 4.40 106/ul Normal 4.20-5.40 [facility] Comment on above: Performed By: #### M G, RENAL, URIC #### [facility] [address] [place] [address] Dr. Shayne Roldan WBC 8.8 103/ul Normal 4.0-11.0 [facility] Comment on above: Performed By: #### M G, RENAL, URIC #### [facility] [address] [place] [address] Dr. Shayne Roldan MAGNESIUMon 08-05-2022 Magnesium [Mass/Vol] 1.5 mg/dL Critically low 1.8-2.4 [facility] Comment on above: Performed By: #### M G, RENAL, URIC #### [facility] [address] [place] [address] Dr. Shayne Roldan RENAL FUNCTION PANELon 08-05 Albumin [Mass/Vol] 3.5 g/dL Normal 3.4-5.0 [facility] Comment on above: Performed By: #### M G, RENAL, URIC #### [facility] [address] [place] [address] Dr. Shayne Roldan Calcium [Mass/Vol] 8.4 mg/dL Critically low 8.5-10.1 [facility] Comment on above: Performed By: #### M G, RENAL, URIC #### [facility] [address] [place] [address] Dr. Shayne Roldan Chloride [Moles/Vol] 101 mmol/L Normal 98-107 [facility] Comment on above: Performed By: #### M G, RENAL, URIC #### [facility] [address] [address] [address] Shayne Roldan CO2 [Moles/Vol] 29.5 mmol/L Normal 21.0-32.0 [facility] Comment on above: Performed By: #### M G, RENAL, URIC #### [facility] [address] [address] [address] Shayne Roldan Creatinine [Mass/Vol] 1.04 mg/dL Critically high 0.55-1.02 [facility] Comment on above: Performed By: #### M G, RENAL, URIC #### [facility] [address] [address] [address] Shayne Roldan EGFR-AF BANGLADESHI >60 Normal >=60 [facility] Comment on above: Performed By: #### M G, RENAL, URIC #### [facility] [address] [place] [address] Dr. Shayne Roldan EGFR-NON AF BANGLADESHI 53 mL/min/1.73m2 Critically low >=60 [facility] Comment on above: Performed By: #### M G, RENAL, URIC #### [facility] [address] [address] [address] Shayne Roldan Glucose [Mass/Vol] 92 mg/dL Normal 74-106 [facility] Comment on above: Performed By: #### M G, RENAL, URIC #### [facility] [address] [address] [address] Shayne Roldan Phosphate [Mass/Vol] 2.4 mg/dL Critically low 2.6-4.7 [facility] Comment on above: Performed By: #### M G, RENAL, URIC #### [facility] [address] [address] [address] Shayne Roldan Potassium [Moles/Vol] 2.8 mmol/L Critically low 3.5-5.1 [facility] Comment on above: Performed By: #### M G, RENAL, URIC #### [facility] [address] [address] [address] Shayne Roldan Sodium [Moles/Vol] 137 mmol/L Normal 136-145 [facility] Comment on above: Performed By: #### M G, RENAL, URIC #### [facility] [address] [address] [address] Shayne Roldan Urea nitrogen [Mass/Vol] 10.0 mg/dL Normal 7.0-18.0 [facility] Comment on above: Performed By: #### M G, RENAL, URIC #### [facility] [address] [address] [address] Shayne Roldan UA RANDOM W/MICROSCOPICon BACTERIA SMALL Abnormal NONE SEEN [facility] Comment on above: Performed By: #### U AMIC #### [facility] [address] [address] [address] Shayne Roldan Bilirubin Ql (U) Negative Normal NEGATIVE [facility] Comment on above: Performed By: #### U AMIC #### [facility] [address] [place] [address] Dr. Shayne Roldan CAST NONE SEEN Normal NONE SEEN [facility] Comment on above: Performed By: #### U AMIC #### [facility] [address] [address] [address] Shayne Roldan Clarity (U) CLEAR Normal CLEAR [facility] Comment on above: Performed By: #### U AMIC #### [facility] [address] [place] [address] Dr. Shayne Roldan Color (U) LT. YELLOW Normal YELLOW [facility] Comment on above: Performed By: #### U AMIC #### [facility] [address] [address] [address] Shayne oRldan Crystals LM Nom (Urine sed) NONE SEEN Normal NONE SEEN [facility] Comment on above: Performed By: #### U AMIC #### [facility] [address] [place] [address] Dr. Shayne Roldan Epithelial cells LM Ql (Urine sed) FEW Abnormal NONE SEEN /RARE [facility] Comment on above: Performed By: #### U AMIC #### [facility] [address] [place] [address] Dr. Shayne Roldan Glucose Ql (U) Negative Normal NEGATIVE [facility] Comment on above: Performed By: #### U AMIC #### [facility] [address] [address] [address] Shayne Roldan Hemoglobin Ql (U) Negative Normal NEGATIVE [facility] Comment on above: Performed By: #### U AMIC #### [facility] [address] [address] [address] Shayne Roldan Ketones Ql (U) Negative Normal NEGATIVE [facility] Comment on above: Performed By: #### U AMIC #### [facility] [address] [address] [address] Shayne Roldan LEUKOCYTES TRACE Abnormal NEGATIVE [facility] Comment on above: Performed By: #### U AMIC #### [facility] [address] [address] [address] Shayne Roldan MUCOUS NONE SEEN Normal NONE SEEN [facility] Comment on above: Performed By: #### U AMIC #### [facility] [address] [address] [address] Shayne Roldan Nitrite Ql (U) Negative Normal NEGATIVE [facility] Comment on above: Performed By: #### U AMIC #### [facility] [address] [address] [address] Shayne Roldan pH (U) 6.0 [pH] Normal 5-9 [facility] Comment on above: Performed By: #### U AMIC #### [facility] [address] [address] [address] Shayne Roldan RBC NONE SEEN Abnormal 0-2 [facility] Comment on above: Performed By: #### U AMIC #### [facility] [address] [address] [address] Shayne Roldan SPEC GRAVITY <=1.005 Abnormal 1.005-<=1.02 5 [facility] Comment on above: Performed By: #### U AMIC #### [facility] [address] [address] [address] Shayne Roldan UA PROTEIN Negative Normal NEGATIVE/ TRACE [facility] Comment on above: Performed By: #### U AMIC #### [facility] [address] [address] [address] Shayne Roldan Urobilinogen Qn (U) 0.2 {Rogelio'U}/dL Normal 0.2 - 1. 0 [facility] Comment on above: Performed By: #### U AMIC #### [facility] [address] [address] [address] Shayne Roldan WBC 5-10 Abnormal NONE SEEN [facility] Comment on above: Performed By: #### U AMIC #### [facility] [address] [place] [address] Dr. Shayne Roldan URIC ACID SERUMon 08-05-2022 Urate [Mass/Vol] 6.5 mg/dL Critically high 2.6-6.0 [facility] Comment on above: Performed By: #### M G, RENAL, URIC #### [facility] [address] [place] [address] Dr. Shayne Roldan URINE T PROTEIN CREAT RATIOo n 08-05-2022 Protein (U) [Mass/Vol] 4.8 mg/dL Normal <=12.0 [facility] Comment on above: Performed By: #### U RTPCR #### [facility] [address] [place] [address] Dr. Shayne Roldan UR PROT CREAT RAT 0.09 Normal [facility] Comment on above: Performed By: #### U RTPCR #### [facility] [address] [place] [address] Dr. Shayne Roldan URINE CREAT 52.65 mg/dL Normal 20.00-300.00 [facility] Comment on above: Performed By: #### U RTPCR #### [facility] [address] [place] [address] Dr. Shayne Roldan VITAMIN D 25 OHon 08-05-2022 VIT D 25-OH 38.9 ng/mL Normal [facility] Comment on above: Performed By: #### M G, RENAL, URIC #### [facility] [address] [place] [address] Dr. Shayne Roldan VIT D RANGES SEE BELOW Normal [facility] Comment on above: Result Comment: <20 ng/mL Vit D deficient 20 - <30 ng/mL Vit D insufficient 30 - 100 ng/mL Vit D sufficient >100 ng/mL Potential Toxicity Performed By: #### M G, RENAL, URIC #### [facility] [address] [place] [address] Dr. Shayne Roldan IMMUNOGLOBULINS IGA/IGM/IGG/ IGE QUANTITAon 07-12-2022 Immunoglobulin A, Qn, Serum 295 mg/dL Normal 87-352 [facility] Comment on above: Result Comment: Perf ormed at: CB Performed By: #### M G, RENAL, URIC #### [facility] [address] [place] [address] Dr. Shayne Roldan Immunoglobulin E, Total 32 IU/mL Normal 6-495 [facility] Comment on above: Result Comment: Perf ormed at: BN Performed By: #### M G, RENAL, URIC #### [facility] [address] [place] [address] Dr. Shayne Roldan Immunoglobulin G, Qn, Serum 729 mg/dL Normal 586-1602 [facility] Comment on above: Result Comment: Perf ormed at: CB Performed By: #### M G, RENAL, URIC #### [facility] [address] [place] [address] Dr. Shayne Roldan Immunoglobulin M, Qn, Serum 75 mg/dL Normal 26-217 [facility] Comment on above: Result Comment: Perf ormed at: CB Performed By: #### M G, RENAL, URIC #### [facility] [address] [place] [address] Dr. Shayne Roldan CBC AUTO DIFFon 07-05-2022 BASO # 0.1 103/ul Normal 0.0-0.1 [facility] Comment on above: Performed By: #### M G, RENAL, URIC #### [facility] [address] [place] [address] Dr. Shayne Roldan Basophils/100 WBC (Bld) 0.7 % Normal 0.2-2.0 [facility] Comment on above: Performed By: #### M G, RENAL, URIC #### [facility] [address] [address] [address] Shayne Roldan EO # 0.4 103/ul Normal 0.0-0.7 [facility] Comment on above: Performed By: #### M G, RENAL, URIC #### [facility] [address] [address] [address] Shayne Roldan Eosinophils/100 WBC (Bld) 4.4 % Normal 0.9-7.0 [facility] Comment on above: Performed By: #### M G, RENAL, URIC #### [facility] [address] [address] [address] Shayne Roldan Erythrocyte distribution width (RBC) [Ratio] 12.6 % Normal 11.0-15.0 [facility] Comment on above: Performed By: #### M G, RENAL, URIC #### [facility] [address] [place] [address] Dr. Shayne Roldan Hematocrit (Bld) [Volume fraction] 40.2 % Normal 36.0-48.0 [facility] Comment on above: Performed By: #### M G, RENAL, URIC #### [facility] [address] [address] [address] Shayne Roldan Hemoglobin (Bld) [Mass/Vol] 13.6 g/dL Normal 12.0-16.0 [facility] Comment on above: Performed By: #### M G, RENAL, URIC #### [facility] [address] [address] [address] Shayne Roldan IG # 0.07 10e3/ul Critically high 0.00-0.03 [facility] Comment on above: Performed By: #### M G, RENAL, URIC #### [facility] [address] [address] [address] Shayne Roldan IG % 0.8 % Critically high 0.0-0.5 [facility] Comment on above: Performed By: #### M G, RENAL, URIC #### [facility] [address] [address] [address] Shayne Roldan LYMPH # 2.3 103/ul Normal 1.2-3.8 [facility] Comment on above: Performed By: #### M G, RENAL, URIC #### [facility] [address] [place] [address] Dr. Shayne Roldan Lymphocytes/100 WBC (Bld) 24.7 % Normal 20.5-60.0 [facility] Comment on above: Performed By: #### M G, RENAL, URIC #### [facility] [address] [place] [address] Dr. Shyane Roldan MANUAL DIFF REQ NO Normal [facility] Comment on above: Performed By: #### M G, RENAL, URIC #### [facility] [address] [place] [address] Dr. Shayne Roldan MCH (RBC) [Entitic mass] 30.7 pg Normal 26.7-34.0 [facility] Comment on above: Performed By: #### M G, RENAL, URIC #### [facility] [address] [place] [address] Dr. Shayne Roldan MCHC (RBC) [Mass/Vol] 33.8 g/dL Normal 29.9-35.2 [facility] Comment on above: Performed By: #### M G, RENAL, URIC #### [facility] [address] [place] [address] Dr. Shayne Roldan MCV (RBC) [Entitic vol] 90.7 fL Normal 81.0-99.0 [facility] Comment on above: Performed By: #### M G, RENAL, URIC #### [facility] [address] [place] [address] Dr. Shayne Roldan MONO # 0.7 103/ul Normal 0.3-0.8 [facility] Comment on above: Performed By: #### M G, RENAL, URIC #### [facility] [address] [place] [address] Dr. Shayne Roldan Monocytes/100 WBC (Bld) 7.7 % Normal 1.7-12.0 [facility] Comment on above: Performed By: #### M G, RENAL, URIC #### [facility] [address] [place] [address] Dr. Shayne Roldan NEUT # 5.7 103/ul Normal 1.4-6.5 [facility] Comment on above: Performed By: #### M Poncho, RENAL, URIC #### [facility] [address] [place] [address] Dr. Shayne Roldan Neutrophils/100 WBC (Bld) 61.7 % Normal 43.0-75.0 [facility] Comment on above: Performed By: #### M Poncho, RENAL, URIC #### [facility] [address] [place] [address] Dr. Shayne Roldan Platelet mean volume (Bld) [Entitic vol] 8.8 fL Critically low 9.5-13.5 [facility] Comment on above: Performed By: #### M Poncho RENAL, URIC #### [facility] [address] [place] [address] Dr. Shayne Roldan PLT 279 103/ul Normal 150-450 [facility] Comment on above: Performed By: #### Katy Isaac, RENAL, URIC #### [facility] [address] [place] [address] Dr. Shayne Roldan RBC 4.43 106/ul Normal 4.20-5.40 [facility] Comment on above: Performed By: #### Katy Poncho RENAL, URIC #### [facility] [address] [place] [address] Dr. Shayne Roldan WBC 9.1 103/ul Normal 4.0-11.0 [facility] Comment on above: Performed By: #### M Poncho, RENAL, URIC #### [facility] [address] [place] [address] Dr. Shayne Roldan [facility]on SARS-CoV-2 (COVID-19) RNA KAYLEE+probe Ql (Unsp spec) Not detected Normal NOT DETECTED [facility] Comment on above: Result Comment: This test is not yet approved or cleared by the [place] FDA. When there are no FDA-approved or cleared tests available, and other criteria are met, FDA can make tests available under an emergency access mechanism called an Emergency Use Authorization (EUA). The EUA for this test is supported by the Privacy Director of Health and Human Service's (HHS's) declaration [...] By: #### M G, RENAL, URIC #### [facility] [address] [address] [address] Shayne Roldan XR CHEST 2 Von [...] NARDA LONDONO Date: 2022-06-08 19:58 Normal [facility] Covid-19 PCR ([facility])on SARS-CoV-2 (COVID-19) RNA KAYLEE+probe Ql (Unsp spec) Not detected Normal NOT DETECTED [facility] Comment on above: Result Comment: This test is not yet approved or cleared by the [place] FDA. When there are no FDA-approved or cleared tests available, and other criteria are met, FDA can make tests available under an emergency access mechanism called an Emergency Use Authorization (EUA). The EUA for this test is supported by the Privacy Director of Health and Human Service's (HHS's) declaration [...] consistent with SARS-CoV-2. Performed By: #### [facility] #### [facility] [address] [address] [address] Shayne Roldan DEXA AXIALon 03-01-2022 DEXA AXIAL [facility] Department of Radiology [address] [place] [phone] == Patient Name: DIANA CHAMPION : 1955 Sex: F Age: Race: White Pt. Location: Patient Status: D Ordered Date: 02/24/2022 1:25:00 PM Completed Date: 03/01/2022 09:46 AM Requesting Provider: CINDA ANTONIO Attending Provider: Report Copy To: Signs & Symptoms: Z78.0 Asymptomatic menopausal state I10 History: [place] Comments: Exam: DEXA AXIAL == DEXA AXIAL [...] characteristics. Electronically signed: Luzma Marks. Transcribed by: [email or web address], User Resident: Electronically Signed by: LUZMA MARKS @ 03/02/2022 01:07 PM Normal [facility] SCOLIOSIS 2 [facility] 02-24-2022 SCOLIOSIS 2 [facility] Department of Radiology [address] [place] [phone] == Patient Name: DIANA CHAMPION : 1955 Sex: F Age: Race: White Pt. Location: Patient Status: D Ordered Date: 02/24/2022 1:25:00 PM Completed Date: 02/24/2022 01:44 PM Requesting Provider: CINDA ANTONIO Attending Provider: Report Copy To: Signs & Symptoms: M43.10 Spondylolisthesis, site unspecified I10 History: Comments: Views (X-RAY, SCOLIOSIS): PA, Lateral evaluate Exam: SCOLIOSIS 2 VWS == Scoliosis. Worsening pain. Frontal and lateral thoracolumbar spine IMPRESSION: 1. Diffuse disc disease and facet arthritis. Right convex mid lumbar curvature measuring 16 degrees. Interbody fusion hardware lower lumbar spine. Electronically signed: Hugo Lynn. Transcribed by: [email or web address], User Resident: Electronically Signed by: HUGO LYNN @ 02/26/2022 11:07 AM Normal [facility] Comment on above: Order Comment: Views (X-RAY, SCOLIOSIS): PA, Lateral evaluate CT LUMBAR SPINE W CONTRASTon 01-24-2022 CT LUMBAR SPINE W CONTRAST [facility] Department of Radiology [address] [place] [phone] == Patient Name: DIANA CHAMPION : [...] severe, at left L1-2. Electronically signed: Gaurang Hess. Transcribed by: [email or web address], User Resident: Electronically Signed by: GAURANG HESS @ 01/26/2022 08:58 AM Normal [facility] Comment on above: Order Comment: , CT MYELOGRAM>PAPER WORK IN CHART LUMBAR MYELOGRAMon 2 LUMBAR MYELOGRAM [facility] Department of Radiology [address] [place] [phone] == Patient Name: DIANA CHAMPION : [...] JOO LINN MD , Exam: LUMBAR MYELOGRAM == LUMBAR [...] risks are acceptable. Consent was obtained. Timeout: [place] protocol timeout verification performed. PROCEDURE: Estimated blood [...] report. Electronically signed: Greg Mcmahan. Transcribed by: [email or web address], User Resident: DEBBIE JI Electronically Signed by: GREG MCMAHAN @ 01/24/2022 04:07 PM I personally read this/these film(s) with this resident Normal [facility] Comment on above: Order Comment: , CT MYELOGRAM> PAPER WORK SCANNED IN CHART , CT MYELOGRAM> PAPER WORK SCANNED IN CHART , , , Ordering Provider - JOO LINN MD , HIP LEFT 1 OR 2 VWS WITH PEL VISon 01-06-2022 HIP LEFT 1 OR 2 VWS WITH PELVIS [facility] of [facility]iology [address] [place] [phone] == Patient Name: DIANA CHAMPION : 1955 Sex: F Age: Race: White Pt. Location: Patient Status: D Ordered Date: 12/21/2021 10:45:00 AM Completed Date: 01/06/2022 01:24 PM Requesting Provider: JOO LINN Attending Provider: JOO LINN Report Copy To: Signs & Symptoms: Z96.642 Presence of left artificial hip joint I10 History: [place] Comments: Evaluate Exam: HIP LEFT 1 OR 2 VWS WITH PELVIS == HIP LEFT 1 OR 2 VWS WITH PELVIS HISTORY: Hip replacement, follow-up. COMPARISON: None. IMPRESSION: 1. Redemonstrated left hip prosthesis without visible complication. 2. Advanced right hip arthritis without significant change with advanced joint space narrowing. Unchanged lumbosacral fusion hardware. Electronically signed: Joe Matthew. Transcribed by: [email or web address], User Resident: Electronically Signed by: JOE MATTHEW @ 01/09/2022 04:45 PM Normal [facility] Comment on above: Order Comment: Evalu ate Vital Signs Date Time Vital Sign Value Performing Clinician Facility 01-02-2025 14:54-0500 Body mass index (BMI) [Ratio] 40.2 kg/m2 Kaylene López [employer] Work Phone: [facility] 01-02-2025 14:54-0500 Body temperature 99.61 [degF] Kaylene López [employer] Work Phone: [facility] 01-02-2025 14:54-0500 Body weight 106.23 kg Kaylene López [employer] Work Phone: [facility] 01-02-2025 14:54-0500 Diastolic blood pressure 84 mm[Hg] Kaylene López [employer] Work Phone: [facility] 01-02-2025 14:54-0500 Heart rate 78 /min Kaylene López [employer] Work Phone: [facility] 01-02-2025 14:54-0500 Respiratory rate 26 /min Kaylene López [employer] Work Phone: [facility] 01-02-2025 14:54-0500 SaO2% (BldA) [Mass fraction] 91 % Kaylene López [employer] Work Phone: [facility] 01-02-2025 14:54-0500 Systolic blood pressure 120 mm[Hg] Kaylene López [employer] Work Phone: [facility] 11-28-2024 13:08-0500 Body height 162.6 cm Aida Reese [employer] Work Phone: [facility] 11-28-2024 13:08-0500 Body mass index (BMI) [Ratio] 40.51 kg/m2 Aida Reese [employer] Work Phone: [facility] 11-28-2024 13:08-0500 Body temperature 97.9 [degF] Aida Reese [employer] Work Phone: [facility] 11-28-2024 13:08-0500 Body weight 107.05 kg Aida Reese [employer] Work Phone: [facility] 11-28-2024 13:08-0500 Diastolic blood pressure 82 mm[Hg] Aida Reese [employer] Work Phone: [facility] 11-28-2024 13:08-0500 Heart rate 79 /min Aida Reese [employer] Work Phone: [facility] 11-28-2024 13:08-0500 Respiratory rate 20 /min Aida Reese [employer] Work Phone: [facility] 11-28-2024 13:08-0500 SaO2% (BldA) [Mass fraction] 96 % Aida Reese [employer] Work Phone: [facility] 11-28-2024 13:08-0500 Systolic blood pressure 148 mm[Hg] Aida Reese [employer] Work Phone: [facility] 11-12-2024 10:24-0500 Body mass index (BMI) [Ratio] 40.75 kg/m2 Aida Reese [employer] Work Phone: [facility] 11-12-2024 10:24-0500 Body temperature 98.71 [degF] Aida Reese [employer] Work Phone: [facility] 11-12-2024 10:24-0500 Body weight 107.68 kg Aida Reese [employer] Work Phone: [facility] 11-12-2024 10:24-0500 Diastolic blood pressure 78 mm[Hg] Aida Reese [employer] Work Phone: [facility] 11-12-2024 10:24-0500 Heart rate 68 /min Aida Reese [employer] Work Phone: [facility] 11-12-2024 10:24-0500 Respiratory rate 18 /min Aida Reese [employer] Work Phone: [facility] 11-12-2024 10:24-0500 SaO2% (BldA) [Mass fraction] 92 % Aida Reese [employer] Work Phone: [facility] 11-12-2024 10:24-0500 Systolic blood pressure 134 mm[Hg] Aida Reese [employer] Work Phone: [facility] 10-15-2024 14:29-0500 Blood Pressure Location MAG JOSE ALEJANDRO [facility] 10-15-2024 14:29-0500 Diastolic blood pressure 75 mm[Hg] MAG JOSE ALEJANDRO [facility] 10-15-2024 14:29-0500 Heart rate 64 /min MAG JOSE ALEJANDRO [facility] 10-15-2024 14:29-0500 Respiratory rate 20 /min MAG JOSE ALEJANDRO [facility] 10-15-2024 14:29-0500 Systolic blood pressure 147 mm[Hg] MAG BLOUNT [facility] 10-07-2024 14:22-0500 Body height 162.6 cm Aida Reese [employer] Work Phone: [facility] 10-07-2024 14:22-0500 Body mass index (BMI) [Ratio] 40.85 kg/m2 Aida Reese [employer] Work Phone: [facility] 10-07-2024 14:22-0500 Body weight 107.96 kg Aida Reese [employer] Work Phone: [facility] 10-07-2024 14:22-0500 Diastolic blood pressure 72 mm[Hg] Aida Reese [employer] Work Phone: [facility] 10-07-2024 14:22-0500 Heart rate 64 /min Aida Reese [employer] Work Phone: [facility] 10-07-2024 14:22-0500 Respiratory rate 18 /min Aida Reese [employer] Work Phone: [facility] 10-07-2024 14:22-0500 SaO2% (BldA) [Mass fraction] 93 % Aida Reese [employer] Work Phone: [facility] 10-07-2024 14:22-0500 Systolic blood pressure 110 mm[Hg] Aida Reese [employer] Work Phone: [facility] 09-05-2024 12:53-0400 Body height 162.56 cm Aida Reese [employer]-C Work Phone: [facility] 09-05-2024 12:53-0400 Body weight 104.32 kg Aida Reese [employer]-C Work Phone: [facility] 08-19-2024 11:41-0400 Body mass index (BMI) [Ratio] 40.34 kg/m2 Aida Reese [employer] Work Phone: [facility] 08-19-2024 11:41-0400 Body temperature 97.59 [degF] Aida Reese [employer] Work Phone: [facility] 08-19-2024 11:41-0400 Body weight 106.59 kg Aida Reese [employer] Work Phone: [facility] 08-19-2024 11:41-0400 Diastolic blood pressure 76 mm[Hg] Aida Reese [employer] Work Phone: [facility] 08-19-2024 11:41-0400 Heart rate 57 /min Aida Reese [employer] Work Phone: [facility] 08-19-2024 11:41-0400 SaO2% (BldA) [Mass fraction] 90 % Aida Reese [employer] Work Phone: [facility] 08-19-2024 11:41-0400 Systolic blood pressure 138 mm[Hg] Aida Reese [employer] Work Phone: [facility] 07-11-2024 08:25-0400 Body height 162.6 cm Aida Reese [employer] Work Phone: [facility] 07-11-2024 08:25-0400 Body mass index (BMI) [Ratio] 41.02 kg/m2 Aida Reese [employer] Work Phone: [facility] 07-11-2024 08:25-0400 Body temperature 98.1 [degF] Aida Reese [employer] Work Phone: [facility] 07-11-2024 08:25-0400 Body weight 108.41 kg Aida Reese [employer] Work Phone: [facility] 07-11-2024 08:25-0400 Diastolic blood pressure 74 mm[Hg] Aida Hartpatrick [employer] Work Phone: [facility] 07-11-2024 08:25-0400 Heart rate 83 /min Aida Brannonzpatrick [employer] Work Phone: [facility] Comment on above: 94% O2 07-11-2024 08:25-0400 Systolic blood pressure 130 mm[Hg] Aida Brannonzpatrick [employer] Work Phone: [facility] 03-14-2024 10:30-0400 Body height 165.1 cm Steph Galindo Work Phone: [facility] 03-14-2024 10:30-0400 Body mass index (BMI) [Ratio] 39 kg/m2 Steph Josie Work Phone: [facility] 03-14-2024 10:30-0400 Body temperature 97.4 [degF] Steph Galindo Work Phone: [facility] 03-14-2024 10:30-0400 Body weight 106.36 kg Steph Galindo Work Phone: [facility] 03-14-2024 10:30-0400 Diastolic blood pressure 80 mm[Hg] Steph Collier Work Phone: [facility] 03-14-2024 10:30-0400 Heart rate 77 /min Steph Galindo Work Phone: [facility] 03-14-2024 10:30-0400 Inhaled oxygen flow rate 3 L/min Steph Josie Work Phone: [facility] 03-14-2024 10:30-0400 Respiratory rate 20 /min Steph Josie Work Phone: [facility] 03-14-2024 10:30-0400 SaO2% (BldA) [Mass fraction] 92 % Steph Collier Work Phone: [facility] 03-14-2024 10:30-0400 Systolic blood pressure 120 mm[Hg] Steph Collier Work Phone: [facility] 08-17-2023 09:20-0400 Body height 165.1 cm Herberth Joana Other [employer] Other 08-17-2023 09:20-0400 Body mass index (BMI) [Ratio] 38.1 kg/m2 Herberth Joana Other [employer] Other 08-17-2023 09:20-0400 Body temperature 98.8 [degF] Herberth Joana Other [employer] Other 08-17-2023 09:20-0400 Body weight 103.87 kg Herberth Joana Other [employer] Other 08-17-2023 09:20-0400 Diastolic blood pressure 85 mm[Hg] Herberth Joana Other [employer] Other 08-17-2023 09:20-0400 Respiratory rate 18 /min Herberth Joana Other [employer] Other 08-17-2023 09:20-0400 SaO2% (BldA) [Mass fraction] 94 % Herberth Joana Other [employer] Other 08-17-2023 09:20-0400 Systolic blood pressure 151 mm[Hg] Herberth Joana Other [employer] Other 03-02-2023 10:00-0400 Body height 165.1 cm Herberth Joana Other [employer] Other 03-02-2023 10:00-0400 Body mass index (BMI) [Ratio] 37.29 kg/m2 Herberth Joana Other [employer] Other 03-02-2023 10:00-0400 Body temperature 98.9 [degF] Herberht Joana Other [employer] Other 03-02-2023 10:00-0400 Body weight 101.65 kg Herberth Joana Other [employer] Other 03-02-2023 10:00-0400 Diastolic blood pressure 76 mm[Hg] Herberth Joana Other [employer] Other 03-02-2023 10:00-0400 Respiratory rate 20 /min Herberth Joana Other [employer] Other 03-02-2023 10:00-0400 SaO2% (BldA) [Mass fraction] 96 % Herberth Joana Other [employer] Other 03-02-2023 10:00-0400 Systolic blood pressure 136 mm[Hg] Herberth Joana Other [employer] Other 12-08-2022 09:30-0500 Diastolic blood pressure 59 mm[Hg] MD Shaikh Ohara Work Phone: [facility] 12-08-2022 09:30-0500 Heart rate 55 /min MD Shaikh Ohara Work Phone: [facility] 12-08-2022 09:30-0500 Respiratory rate 16 /min MD Shaikh Ohara Work Phone: [facility] 12-08-2022 09:30-0500 SaO2% (BldA) [Mass fraction] 96 % MD Shaikh Ohara Work Phone: [facility] 12-08-2022 09:30-0500 Systolic blood pressure 112 mm[Hg] MD Shaikh Ohara Work Phone: [facility] 12-08-2022 06:54-0500 Body height 162.56 cm MD Shaikh Ohara Work Phone: [facility] 12-08-2022 06:54-0500 Body temperature 98.2 [degF] MD Shaikh Ohara Work Phone: [facility] 12-08-2022 06:54-0500 Body weight 104.32 kg MD Shaikh Ohara Work Phone: [facility] 08-09-2022 11:00-0400 Body height 165.1 cm Herberth Joana Other [employer] Other 08-09-2022 11:00-0400 Body mass index (BMI) [Ratio] 37.87 kg/m2 Herberth Joana Other [employer] Other 08-09-2022 11:00-0400 Body temperature 97.2 [degF] Herberth Joana Other [employer] Other 08-09-2022 11:00-0400 Body weight 103.24 kg Herberth Joana Other [employer] Other 08-09-2022 11:00-0400 Diastolic blood pressure 88 mm[Hg] Herberth Joana Other [employer] Other 08-09-2022 11:00-0400 Respiratory rate 20 /min Herberth Joana Other [employer] Other 08-09-2022 11:00-0400 SaO2% (BldA) [Mass fraction] 95 % Herberth Joana Other [employer] Other 08-09-2022 11:00-0400 Systolic blood pressure 133 mm[Hg] Herberth Joana Other [employer] Other 11-17-2021 10:40-0500 Body height 165.1 cm Herberth Joana Other [employer] Other 11-17-2021 10:40-0500 Body mass index (BMI) [Ratio] 37.97 kg/m2 Herberth Joana Other [employer] Other 11-17-2021 10:40-0500 Body temperature 97.8 [degF] Herberth Joana Other [employer] Other 11-17-2021 10:40-0500 Body weight 103.51 kg Herberth Joana Other [employer] Other 11-17-2021 10:40-0500 Diastolic blood pressure 70 mm[Hg] Herberth Joana Other [employer] Other 11-17-2021 10:40-0500 Respiratory rate 18 /min Herberth Joana Other [employer] Other 11-17-2021 10:40-0500 SaO2% (BldA) [Mass fraction] 94 % Herberth Joana Other [employer] Other 11-17-2021 10:40-0500 Systolic blood pressure 130 mm[Hg] Herberth Joana Other [employer] Other 08-30-2021 13:15-0400 Body height 165.1 cm Rena Ginty Other [employer] Other 08-30-2021 13:15-0400 Body mass index (BMI) [Ratio] 36.61 kg/m2 Rena Ginty Other [employer] Other 08-30-2021 13:15-0400 Body temperature 98.7 [degF] Rena Ginty Other [employer] Other 08-30-2021 13:15-0400 Body weight 99.79 kg Rena Ginty Other [employer] Other 08-30-2021 13:15-0400 SaO2% (BldA) [Mass fraction] 90 % Rena Ginty Other [employer] Other Encounters Encounter Date Encounter Type Care Provider Facility Start: 01-02-2025 End: 01-02-2025 Office outpatient visit 25 minutes Kaylene López NP Work Phone: [facility] Comment on above: Flu-like symptoms (P rimary Dx); Morbid (severe) obesity due to excess calories (CMS/HCC); Body mass index (BMI) 40.0-44.9, adult (CMS/HCC); Pulmonary emphysema, unspecified emphysema type (CMS/HCC); Chronic respiratory failure with hypoxia (CMS/HCC); Essential hypertension (CMS/HCC) Start: 01-02-2025 End: 01-02-2025 Bamboo flowsheet Kaylene Aichholz [employer] Work Phone: [facility] Start: 01-02-2025 End: 01-02-2025 Bamboo flowsheet Kaylene López [employer] Work Phone: [facility] Start: 12-17-2024 End: 12-17-2024 Office outpatient visit 15 minutes Jessica Lazo MD Work Phone: [facility] DERM Comment on above: Seborrheic keratosis (Primary Dx); History of SCC (squamous cell carcinoma) of skin; Lentigines Start: 12-17-2024 End: 12-17-2024 ambulatory JESSICA LAZO Not Available Start: 12-17-2024 End: 12-17-2024 Bamboo flowsheet Ramin KING Work Phone: [facility] ORTHOPAEDICS Start: 12-17-2024 End: 12-17-2024 Bamboo flowsheet Ramin KING Work Phone: [facility] Start: 12-17-2024 End: 12-17-2024 ambulatory RAMIN BOWERS Not Available Start: 12-17-2024 End: 12-17-2024 Office outpatient visit 25 minutes Ramin KING Work Phone: [facility] Comment on above: Acute pain of right knee (Primary Dx); History of total right knee replacement; Right hip pain; Arthritis of right hip Start: 12-15-2024 End: 12-16-2024 Refrosario Reese TOE PUNCHER Work Phone: [facility] C[facility] FM Comment on above: Moderate episode of recurrent major depressive disorder (CMS/HCC) Start: 12-13-2024 End: 12-13-2024 Bamboo flowssamy Lazo MD Work Phone: [facility] Start: 12-13-2024 End: 12-13-2024 Bamboo flowssamy Lazo MD Work Phone: [facility] S[facility] DERM Start: 12-13-2024 End: 12-13-2024 Office outpatient visit 10 minutes Jessica Lazo MD Work Phone: [facility] Comment on above: Nevus lipomatosus cu taneus superficialis (Primary Dx); Squamous cell carcinoma of skin of chest Start: 12-13-2024 End: 12-13-2024 ambulatory JESSICA LAZO Not Available Start: 12-05-2024 End: 12-09-2024 Refill Aida Reese TOE PUNCHER Work Phone: [facility] Comment on above: Restless leg syndrom e Start: 11-30-2024 End: 12-02-2024 Refill Aida Reese TOE PUNCHER Work Phone: [facility] Comment on above: Gastroesophageal ref lux disease without esophagitis Start: 11-28-2024 End: 11-28-2024 Bamboo flowsheet Aida Reese TOE PUNCHER Work Phone: [facility] Start: 11-28-2024 End: 11-28-2024 Bamboo flowsheet Aida Reese TOE PUNCHER Work Phone: [facility] Start: 11-28-2024 End: 11-28-2024 ambulatory AIDA REESE Not Available Start: 11-28-2024 End: 11-28-2024 Transitional care manage srvc 14 day discharge Aida Reese TOE PUNCHER Work Phone: [facility] Comment on above: Pulmonary emphysema, unspecified emphysema type (CMS/HCC) (Primary Dx) Start: 11-12-2024 End: 11-12-2024 Bamboo flowsheet Aida Reese TOE PUNCHER Work Phone: [facility] Start: 11-12-2024 End: 11-12-2024 Bamboo flowsheet Aida Reese TOE PUNCHER Work Phone: [facility] Start: 11-12-2024 End: 11-12-2024 Office outpatient visit 15 minutes Aida Reese TOE PUNCHER Work Phone: [facility] Comment on above: Chronic obstructive pulmonary disease with acute lower respiratory infection (CMS/HCC) (Primary Dx); Primary HSV infection of mouth Start: 11-12-2024 End: 11-12-2024 ambulatory AIDA BOOKERTRICK Not Available Start: 10-26-2024 End: 10-28-2024 Refill Aida Negronk TOE PUNCHER Work Phone: [facility] Comment on above: Moderate episode of recurrent major depressive disorder (CMS/HCC); Restless leg syndrome Start: 10-17-2024 End: 10-17-[address] [facility] Start: 10-15-2024 End: 10-15-2024 ambulatory MAG BLOUNT Facility[facility] Start: 10-15-2024 End: 10-15-2024 Lab Drop off MAG BLOUNT [facility] Start: 10-15-2024 End: 10-15-2024 Refill Aida Negronk TOE PUNCHER Work Phone: [facility] Comment on above: Moderate episode of recurrent major depressive disorder (CMS/HCC) Start: 10-15-2024 End: 10-15-2024 ambulatory MAG BLOUNT Facility:[facility] Start: 10-15-2024 End: 10-15-2024 Patient encounter procedure MAG BLOUNT [facility] Start: 10-12-2024 End: 10-14-2024 Refill Aida Negronk TOE PUNCHER Work Phone: [facility] Comment on above: Urge incontinence Start: 10-11-2024 End: 10-11-2024 America KING Work Phone: [facility] Start: 10-11-2024 End: 10-11-2024 Bamboo flowsheet Jayna Goode PA Work Phone: [facility] Start: 10-11-2024 End: 10-11-2024 Patient encounter procedure Jayna Goode PA Work Phone: [facility] Comment on above: Neoplasm of unspecif ied behavior of bone, soft tissue, and skin (Primary Dx) Start: 10-11-2024 End: 10-11-2024 ambulatory JAYNA GOODE Not Available Start: 10-08-2024 ambulatory MAG BLOUNT Facility :[facility] Start: 10-07-2024 End: 10-07-2024 Office outpatient visit 15 minutes Aida Negronk TOE PUNCHER Work Phone: [facility] Comment on above: Urge incontinence (P rimary Dx); Morbid obesity with BMI of 40.0-44.9, adult (CMS/HCC); 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; Stage 3a chronic kidney disease (HCC) (CMS/HCC); Chronic respiratory failure with hypoxia (CMS/HCC) Start: 10-07-2024 End: 10-07-2024 ambulatory AIDA REESE Not Available Start: 10-07-2024 End: 10-07-2024 Bamboo flowsheet Aida Reese TOE PUNCHER Work Phone: [facility] Start: 10-07-2024 End: 10-07-2024 Bamboo flowsheet Aida Reese TOE PUNCHER Work Phone: [facility] Start: 09-25-2024 End: 09-26-2024 Refill Aida Reese TOE PUNCHER Work Phone: [facility] Comment on above: Restless leg syndrom e Start: 09-12-2024 End: 09-12-2024 ambulatory Aida N Reese TOE PUNCHER-C Work Phone: [facility] Work Phone: Start: 09-12-2024 End: 09-12-2024 Departed Referred Aida Reese TOE PUNCHER-C Work Phone: [facility] [place] Start: 09-10-2024 End: 09-10-2024 Orders Only Aida Reese TOE PUNCHER Work Phone: [facility] Comment on above: Vaginal guero (Aleja joy Dx) Start: 09-05-2024 End: 09-05-2024 Departed Referred Aida Reese TOE PUNCHER-C Work Phone: [facility]fl-Ree-Molhhx[facility] Testing Work Phone: Start: 09-05-2024 End: 09-05-2024 Patient encounter procedure TOE PUNCHER-C Aida Reese Work Phone: [facility] Cel-Unk-Tpqzkasf Testing Work Phone: Start: 09-05-2024 End: 09-05-2024 ambulatory TOE PUNCHER-C Aida Reese Work Phone: [facility] Work Phone: Start: 09-03-2024 End: 09-03-2024 Refill Rukhsana Rutherford MA [facility] Comment on above: Gastroesophageal ref lux disease without esophagitis Start: 08-19-2024 End: 08-19-2024 Bamboo flowsheet Aida Negronk TOE PUNCHER Work Phone: [facility] Start: 08-19-2024 End: 08-19-2024 Bamboo flowsheet Aida Negronk TOE PUNCHER Work Phone: [facility] Start: 08-19-2024 End: 08-19-2024 Transitional care manage srvc 7 day discharge Aida Reese TOE PUNCHER Work Phone: [facility] Comment on above: Moderate persistent asthma with exacerbation (CMS/HCC) (Primary Dx); Diarrhea, unspecified type Start: 08-19-2024 End: 08-19-2024 ambulatory AIDA NEGRONK Not Available Start: 08-12-2024 End: 08-13-2024 Clinisync Result Encounter Shaikh Lev DRAPER Work Phone: [facility] External Department Unsolicited Start: 08-12-2024 End: 08-13-2024 Clinisync Result Encounter Shaikh Lev DRAPER Work Phone: [facility] External Department Unsolicited Start: 08-12-2024 End: 08-27-2024 Refill Aida Reese TOE PUNCHER Work Phone: [facility] Comment on above: Restless leg syndrom e Start: 08-08-2024 End: 08-12-2024 Non-patient / Non-visit TOE PUNCHER-C Aida Reese Work Phone: [facility] Work Phone: Start: 08-08-2024 End: 08-12-2024 Clinisync [...] 07-15-2024 End: 07-15-2024 ambulatory Jayshree Vargas MD Facility:[facility] Start: 07-12-2024 End: 07-12-2024 Clinisync Result Encounter Aida Reese TOE PUNCHER Work Phone: [facility] External Department Unsolicited Start: 07-12-2024 End: 07-12-2024 Clinisync Result Encounter Aida Brannonzpatrick TOE PUNCHER Work Phone: [facility] External Department Unsolicited Start: 07-11-2024 End: 07-11-2024 Bamboo flowsheet Aida Brannonzpatrick TOE PUNCHER Work Phone: [facility] Start: 07-11-2024 End: 07-11-2024 Bamboo flowsheet Aida Reese TOE PUNCHER Work Phone: [facility] Start: 07-11-2024 End: 07-11-[address] [facility] Start: 07-11-2024 End: 07-11-2024 Office outpatient visit 25 minutes Aida Reese TOE PUNCHER Work Phone: [facility] Comment on above: Benign essential HTN (CMS/HCC) (Primary Dx); Chronic heart failure with preserved ejection fraction (CMS/HCC); Severe persistent asthma without complication (CMS/HCC); Moderate mixed hyperlipidemia not requiring statin therapy (CMS/HCC); Morbid obesity with BMI of 40.0-44.9, adult (CMS/HCC) Start: 07-11-2024 End: 07-11-2024 ambulatory AIDA REESE Not Available Start: 07-02-2024 End: 07-02-[address] [facility] Start: 06-29-2024 Non-patient / Non-visit TOE PUNCHER-C B chase Reese Work Phone[facility] Work Phone: Start: 06-28-2024 End: 07-02-2024 Clinisync Result Encounter Generic External Data Provider [facility] External [facility] Unsolicited Start: 06-28-2024 End: 07-02-2024 Clinisync Result Encounter Generic External Data Provider [facility] External Department Unsolicited Start: 06-25-2024 ambulatory [facility] Start: 06-24-2024 End: 06-24-2024 ambulatory Jayshree Vargas MD Facility:[facility] Start: 06-21-2024 End: 06-21-2024 [facility] Start: 06-12-2024 End: 06-12-2024 ambulatory AIDA REESE Not Available Start: 05-13-2024 End: 05-13-2024 ambulatory MANIAB [facility] Start: 05-06-2024 End: 05-06-2024 ambulatory Jayshree Vargas MD Facility: [facility] Start: 04-17-2024 End: 04-17-2024 ambulatory MESSER FAWWAD Not Available Start: 04-15-2024 End: 04-15-2024 ambulatory Jayshree Vargas MD Facility: [facility] Start: 04-11-2024 End: 04-11-2024 ambulatory MESSER FAWWAD Not Available Start: 04-03-2024 End: 04-03-2024 ambulatory MESSER FAWWAD Not Available Start: 03-27-2024 End: 03-27-2024 ambulatory MESSER FAWWAD Not Available Start: 03-14-2024 End: 03-14-2024 ambulatory Steph Collier Work Phone: [facility] Work Phone: Start: 03-14-2024 End: 03-14-2024 Patient encounter procedure Steph Collier Work Phone: [facility] Ne[facility] [place] Work Phone: Start: 03-06-2024 Non-patient / Non-visit Steph Collier Work Phone: [facility] Work Phone: Start: 02-26-2024 End: 02-26-2024 ambulatory MESSER FAWWAD Not Available Start: 02-19-2024 End: 02-19-2024 ambulatory Jayshree Vargas MD Facility: [facility] Start: 02-15-2024 End: 02-15-2024 ambulatory KAYLENE LÓPEZ Not Available Start: 01-25-2024 End: 01-25-2024 ambulatory SHAIKH MICHAELBIRD Not Available Start: 12-28-2023 End: 12-28-2023 ambulatory SHAIKH MICHAELBIRD Not Available Start: 12-18-2023 End: 12-18-2023 [facility]ulatory [facility] Start: 11-13-2023 End: 11-13-2023 ambulatory Jayshree Vargas MD Facility:[facility] Start: 11-06-2023 Patient encounter procedure Generic Provider [facility] Start: 10-09-2023 End: 10-09-2023 ambulatory Jayshree Vargas MD Facility: [facility] Start: 09-07-2023 End: 09-07-2023 ambulatory Herberth Joana Other [employer] Other Start: 09-07-2023 Telephone encounter Herberth Joana [facility] Start: 08-28-2023 End: 08-28-2023 ambulatory Herberth Joana Other [employer] Other Start: 08-28-2023 Telephone encounter Herberth Joana [facility] Start: 08-21-2023 End: 08-21-2023 ambulatory Jayshree Vargas MD Facility: [facility] Start: 08-17-2023 End: 08-17-2023 ambulatory Herberth Joana Other [employer] Other Start: 08-17-2023 Office outpatient vi sit 25 minutes Herberth Joana [facility] [place] Start: 04-04-2023 End: 04-04-2023 ambulatory MESSER Dimitry MICHAELJavonANASTASIA Facility:[facility] Start: 03-24-2023 End: 03-25-[address] STEPH GRANADOS Facility:[facility] Start: 03-02-2023 End: 03-02-2023 ambulatory Herberth Joana Other [employer] Other Start: 03-02-2023 Office outpatient vi sit 25 minutes Herberth Joana [facility] Start: 02-25-2023 End: 02-26-2023 ambulatory HERBERTH JOANA Facility:[facility] Start: 02-22-2023 End: 02-23-2023 ambulatory BO MCCLAIN . Facility:[facility] Start: 12-15-2022 End: 12-16-[address] JACK HALL . Facility:[facility] Start: 12-08-2022 End: 12-08-2022 Admission to same day surgery center MD Shaikh Ohara Work Phone: [facility] Work Phone: Start: 12-08-2022 End: 12-08-2022 ambulatory MD Shaikh Ohara Work Phone: [facility] Work Phone: Start: 11-11-2022 End: 11-11-[address] JACK HALL . Facility:[facility] Start: 11-09-2022 End: 11-09-2022 ambulatory Azkatherine Gonzalezs Other [employer] Other Start: 11-09-2022 Telephone encounter Azkatherine Ruelashous [facility] Start: 08-19-2022 End: 08-20-2022 ambulatory HERBERTH JOANA Facility:[facility] Start: 08-09-2022 End: 08-09-2022 ambulatory Herberth Joana Other [employer] Other Start: 08-09-2022 Office outpatient vi sit 10 minutes Herberth Joana [facility] Start: 08-09-2022 Telephone encounter Herberth Joana [facility] Start: 08-05-2022 Telephone encounter Herberth Joana [facility] Start: 08-05-2022 End: 08-06-2022 ambulatory [facility]TH JO[facility] Other Start: 07-08-2022 End: 07-08-2022 ambulatory Gato Domingo Other [employer] Other Start: 07-08-2022 Telephone encounter Gato Cesar ck [facility] Start: 07-05-2022 End: 07-06-2022 ambulatory MESSER H FAWWAD Facility:[facility] Start: 06-08-2022 End: 06-09-2022 ambulatory MESSER H FAWWAD Facility:[facility] Start: 06-07-2022 End: 06-07-2022 ambulatory MESSER H FAWWAD Facility:[facility] Start: 01-24-2022 End: 01-25-2022 ambulatory PHYSICIAN UNKNOWN Facility:[facility] Start: 11-17-2021 End: 11-17-2021 ambulatory Herberth Joana Other [employer] Other Start: 11-17-2021 Office outpatient vi sit 15 minutes Herbetrh Joana [facility] Start: 08-30-2021 Office outpatient vi sit 15 minutes Rena Hurd [facility] Start: 09-11-2020 End: 09-11-2020 Chart abstracting Miguelito Buck Work Phone: Hematology/Oncology Start: 09-11-2020 End: 09-11-2020 Patient encounter procedure External Provider [facility] Start: 09-11-2020 Results Only External Provider Exter nal-NonCCF Start: 09-30-2019 End: 09-30-2019 Patient encounter procedure [facility] [place] Start: 07-07-2017 End: 07-07-2017 Admission to day surgery [facility] Start: 05-24-2004 Evaluation and management of inpatient [facility] [place] Start: 04-26-2004 Evaluation and management of inpatient [facility] [place] Procedures Date Procedure Procedure Detail Performing Clinician Start: 01-02-2025 STATUS COVID-19/FLU Lis a Aichholz TOE PUNCHER Work Phone: Start: 12-17-2024 End: 12-17-2024 Radex hip unilateral with pelvis 2-3 views Ramin Bowers PA Work Phone: Start: 12-13-2024 DESTRUCTION OF LESION Mir Lazo MD Work Phone: Start: 10-11-2024 SKIN / NAIL BIOPSY Sotero KING Work Phone: Start: 08-12-2024 Epithelial cells LM Ql (Urine sed) Shaikh Lev DRAPER Work Phone: Start: 08-12-2024 GRAM STAIN EVALUATION S lebron Ohara MD Work Phone: Start: 08-12-2024 Leukocytes [#/volume ] in Blood Shaikh Lev DRAPER Work Phone: Start: 08-12-2024 LOWER RESPIRATORY [...] ALL CBC WITH AUTO DIFF Aida Reese TOE PUNCHER Work Phone: Start: 06-28-2024 BLOOD CULTURE 2 Generic External Data Provider Start: 06-28-2024 BLOOD CULTURE 1 Generic External Data Provider Start: 02-29-2024 Mammography Generic Pr ovider Start: 12-08-2022 End: 12-08-2022 Colonoscopy MD Shaikh Ohara Work Phone: Start: 09-11-2020 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 Wharf Attendant al Provider Start: 09-11-2020 EXTERNAL LAB External P rovider Start: 09-11-2020 EXTERNAL PROCEDURE Exte rnal Provider Start: 09-30-2019 Ultrasonography of b ilateral kidneys Steph Collier Arthroplasty of knee MARIO BLOUNT Colonoscopy MAG BLOUNT Extraction of cataract ESTHER BLOUNT Insertion of hip prosthesis MAG BLOUNT Ligation of fallopian tube Paolo BLOUNT Plan of Treatment Date Care Activity Detail Author Start: 12-08-2032 Screening for malignant neoplasm of colon [facility] Start: 12-15-2026 End: 12-15-2026 Patient encounter procedure 12/15/2026 9:00 AM EST Office Visit [facility] [address] [place] [phone] Ramin Bowers PA [address] [place] [address] [facility] Start: 06-17-2025 End: 06-17-2025 Patient encounter procedure 06/17/2025 3:05 PM EDT Office Visit [facility] [address] [place] [address] Jessica Lazo MD [address] [place] [address] [facility] Start: 02-28-2025 Screening for malignant neoplasm of breast Mammogram [facility] Start: 01-13-2025 ambulatory Ambulatory Facility:[facility] Start: 01-09-2025 End: 01-09-2025 Patient encounter procedure 01/09/2025 1:40 PM EST Office Visit [facility] [address] [place] [phone] Kaylene López, TOE PUNCHER [address] [place] [phone] [facility] Start: 01-09-2025 End: 01-09-2025 Patient encounter procedure 01/09/2025 8:30 AM EST Office Visit [facility] [address] [place] [phone] Aida Reese, RIKKI [address] [place] [address] [facility] Start: 01-02-2025 End: 01-02-2025 Patient encounter procedure 01/02/2025 2:40 PM EST Office Visit [facility] [address] [place] [phone] Kaylene López, TOE PUNCHER [address] [place] [phone] Pulmonary emphysema, unspecified emphysema type (CMS/HCC) (Primary Dx); Chronic kidney disease, stage 3a (HCC) (CMS/HCC); Severe persistent asthma, uncomplicated (CMS/HCC); Morbid (severe) obesity due to excess calories (CMS/HCC); Body mass index (BMI) 40.0-44.9, adult (CMS/HCC); Chronic respiratory failure with hypoxia (CMS/HCC); Essential hypertension (CMS/HCC); Gastroesophageal reflux disease, unspecified whether esophagitis present; Malignant neoplasm of rectosigmoid junction (CMS/HCC); Urge incontinence [facility] Comment on above: Pulmonary emphysema, unspecified emphyse ma type (CMS/HCC) (Primary Dx); Chronic kidney disease, stage 3a (HCC) (CMS/HCC); Severe persistent asthma, uncomplicated (CMS/HCC); Morbid (severe) obesity due to excess calories (CMS/HCC); Body mass index (BMI) 40.0-44.9, adult (CMS/HCC); Chronic respiratory failure with hypoxia (CMS/HCC); Essential hypertension (CMS/HCC); Gastroesophageal reflux disease, unspecified whether esophagitis present; Malignant neoplasm of rectosigmoid junction (CMS/HCC); Urge incontinence Start: 12-17-2024 End: 12-17-2024 Patient encounter procedure [facility] Start: 12-13-2024 End: 12-13-2024 Patient encounter procedure [facility] Comment on above: Arrived Start: 12-09-2024 End: 12-09-2024 Patient encounter procedure 12/09/2024 2:30 PM EST [facility] [address] [place] [phone] Aida Reese NP [address] [place] [address] [facility] Start: 11-20-2024 End: 11-20-2024 Patient encounter procedure [facility] Start: 11-15-2024 End: 11-15-2024 Patient encounter procedure 11/15/2024 10:30 AM EST Office Visit [facility] [address] [place] [phone] Jayna Goode PA [address] [place] [address] [facility] Start: 11-12-2024 End: 11-12-2025 XR Chest 2 Views XR chest 2 views Imaging Routine Chronic obstructive pulmonary disease with acute lower respiratory infection (CMS/HCC) Expected: 11/12/2024, Expires: 11/12/2025 [facility] Work Phone: Comment on above: Expected: 11/12/2024, Expires: Start: 11-12-2024 End: 11-12-2024 Patient encounter procedure 11/12/2024 10:30 AM EST Office Visit [facility] [address] [place] [address] Aida Reese NP [address] [place] [address] Arrived [facility] Comment on above: Arrived Start: 10-11-2024 End: 10-11-2024 Patient encounter procedure 10/11/2024 8:50 AM EST Office Visit [facility] [address] [place] [address] Jayna Goode PA [address] [place] [address] 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 [facility] Comment on above: 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 Start: 10-09-2024 End: 10-09-2024 Patient encounter procedure 10/09/2024 9:00 AM EST Office Visit [facility] [address] [place] [address] Aida Reese, RIKKI [address] [place] [address] [facility] Start: 10-07-2024 End: 10-07-2024 Patient encounter procedure 10/07/2024 2:30 PM EST Office Visit [facility] [address] [place] [address] Aida Reese NP [address] [place] [address] Arrived [facility] Comment on above: Arrived Start: 09-12-2024 Phacoemulsification of cataract with intraocular lens implantation OR Cataract PHACO W/IOL/Vitrectomy (Left) [facility] Start: 08-19-2024 End: 08-19-2025 Clostridioides difficile toxin A+B tcdA+tcdB genes [Presence] in Stool by KAYLEE with probe detection Clostridium difficile,EIA Microbiology Routine Diarrhea, unspecified type Expected: 08/19/2024 (Approximate), Expires: 08/19/2025 [facility] Work Phone: Comment on above: Expected: 08/19/2024 (Approximate), Expi res: 08/19/2025 Start: 08-19-2024 End: 08-19-2024 Patient encounter procedure [facility] Comment on above: Arrived Start: 07-11-2024 End: 07-11-2025 CBC W Auto Differential panel - Blood CBC and differential Lab Routine Benign essential HTN (CMS/HCC) Chronic heart failure with preserved ejection fraction (CMS/HCC) Moderate mixed hyperlipidemia not requiring statin therapy (CMS/HCC) Morbid obesity with BMI of 40.0-44.9, adult (CMS/HCC) Expected: 07/11/2024 (Approximate), Expires: 07/11/2025 [facility] Comment on above: Expected: 07/11/2024 (Approximate), Expi res: 07/11/2025 Start: 07-11-2024 End: 07-11-2025 Comprehensive metabolic 2000 panel - Serum or Plasma Comprehensive metabolic panel Lab Routine Benign essential HTN (CMS/HCC) Chronic heart failure with preserved ejection fraction (CMS/HCC) Moderate mixed hyperlipidemia not requiring statin therapy (CMS/HCC) Morbid obesity with BMI of 40.0-44.9, adult (CMS/HCC) Expected: 07/11/2024 (Approximate), Expires: 07/11/2025 [facility] Comment on above: Expected: 07/11/2024 (Approximate), Expi res: 07/11/2025 Start: 07-11-2024 End: 07-11-2025 Lipid 1996 panel - Serum or Plasma Lipid panel Lab Routine Moderate mixed hyperlipidemia not requiring statin therapy (CMS/HCC) Expected: 07/11/2024 (Approximate), Expires: 07/11/2025 [facility] Comment on above: Expected: 07/11/2024 (Approximate), Expi res: 07/11/2025 Start: 07-11-2024 End: 07-11-2025 Microalbumin/Creatinine panel in random Urine Microalbumin / creatinine urine ratio Lab Routine Benign essential HTN (CMS/HCC) Expected: 07/11/2024 (Approximate), Expires: 07/11/2025 [facility] Work Phone: Comment on above: Expected: 07/11/2024 (Approximate), Expi res: 07/11/2025 Start: 07-11-2024 End: 07-11-2024 Patient encounter procedure [facility] Comment on above: Benign essential HTN (CMS/HCC) (Primary Dx); Chronic heart failure with preserved ejection fraction (CMS/HCC); Severe persistent asthma without complication (CMS/HCC) Start: 07-07-2024 Influenza vaccination Influenza Vaccine (#1) [facility] Start: 12-08-2022 [facility] Start: 07-07-2020 Influenza vaccination INFLUENZA (#1) [facility] Start: 1955 Screening for malignant neoplasm of colon [facility] BLOOD CULTURE 1 BLOOD CULTURE 1 Lab Routine 08/08/2024 8:30 PM EDT [facility] BLOOD CULTURE 1 BLOOD CULTURE 1 Lab Routine 06/28/2024 8:20 PM EDT [facility] BLOOD CULTURE 2 BLOOD CULTURE 2 Lab Routine 08/08/2024 8:20 PM EDT [facility] BLOOD CULTURE 2 BLOOD CULTURE 2 Lab Routine 06/28/2024 8:21 PM EDT [facility] Dermatopathology exam Dermatopat hology exam Pathology and Cytology Timed Neoplasm of unspecified behavior of bone, soft tissue, and skin Release Upon Ordering for 1 Occurrences starting 10/11/2024 [facility] Work Phone: Comment on above: Release Upon Ordering for 1 Occurrences starting 10/11/2024 LOWER RESPIRATORY CULTURE LOWER RESPIRATORY CULTURE Lab Routine 08/12/2024 9:50 AM EDT [facility] Work Phone: Patient Education Colon Polypect shahram Hemorrhoids (DC) Diverticulosis (DC) [facility] Work Phone: [facility] Immunizations Immunization Date Immunization Notes Care Provider [facility] 09-06-2024 influenza, high dose seasonal, preservative-free Kaylene López TOE PUNCHER Work Phone: [facility] 09-06-2024 influenza virus vaccine, unspecified formulation Aida Reese TOE PUNCHER Work Phone: [facility] 08-26-2023 Influenza, High-dose Seasonal, Quadrivalent, Preservative Free Generic Provider [facility] 08-26-2023 influenza virus vaccine, unspecified formulation Generic Provider [facility] 08-18-2023 RSV, recombinant, protein subunit RSVpreF, adjuvant reconstitu, 120mcg/0.5mL, PF (Arexvy) Generic Provider [facility] 08-09-2023 Pneumococcal Conjuga te PCV 20 Generic Provider [facility] 11-01-2022 zoster vaccine recombinant Generic Provider [facility] 08-27-2022 zoster vaccine recombinant Generic Provider [facility] 08-04-2022 Influenza, High-dose Seasonal, Quadrivalent, Preservative Free Generic Provider [facility] 08-06-2021 Influenza, High-dose Seasonal, Quadrivalent, Preservative Free Generic Provider [facility] 08-07-2020 influenza, injectabl e, quadrivalent, preservative free Generic Provider [facility] 08-09-2019 influenza, injectabl e, quadrivalent, preservative free Generic Provider [facility] 10-19-2018 pneumococcal polysaccharide vaccine, 23 valent Generic Provider [facility] 08-08-2018 influenza, injectabl e, quadrivalent, preservative free Generic Provider [facility] 07-18-2018 Depo-Medrol 40 mg Rena Gint y Other [employer] Other 01-31-2018 Depo-Medrol 40 mg Rena Gint y Other [employer] Other 08-10-2017 influenza, injectabl e, quadrivalent, preservative free Generic Provider [facility] 08-09-2017 influenza virus vaccine, split virus (incl. purified surface antigen) Generic Provider [facility] 08-09-2017 influenza virus vaccine, unspecified formulation Steph Collier Work Phone: [facility] 08-09-2017 influenza, seasonal, injectable, preservative free Rena Gintchioma Other [employer] Other 09-02-2009 novel [id number], preservative-free, injectable Generic Provider [facility] Payers Date Payer Category Payer Medicare [id number] 2024 Medicare [id number] 2023 Medicare WELLCARE MEDICAR E [employer] [id number] 2023-Present [address] [place] [address] [id number] 2023 Medicare (Managed Care) 1.2. [id number] 2022 Unknown 2021 Medicare [id number] 2019 Medicaid MEDICAID [facility] MEDICAID [id number] 2019-Present Medicaid [id number] 2016 Medicare MEDICARE MEDICAR E A AND B [id number] 2016-Present [place] Medicare [id number] .[id number] 1959 Unknown [id number] 1956 Unknown [id number] 2.16.840.1.266938.3.579.2.6 47 1956 Unknown [id number] 2.16.840.1.025173.3.579.2.5 93 1956 Unknown [id number] 2.16.840.1.431264.3.579.2.5 93 1956 Unknown [id number] 2.16.840.1.359852.3.579.2.5 93 1956 Unknown [id number] 2.16.840.1.059750.3.579.2.5 93 1956 Unknown [id number] 2.16.840.1.486550.3.579.2.5 93 1956 Unknown [id number] 2.16.840.1.419565.3.579.2.5 93 1956 Unknown [id number] 2.16.840.1.445501.3.579.2.5 93 1956 Unknown [id number] 2.16.840.1.849551.3.579.2.5 93 1956 Unknown [id number] 2.16.840.1.342904.3.579.2.5 93 1956 Unknown [id number] 2.16.840.1.689549.3.579.2.5 93 1956 Unknown [id number] 2.16.840.1.178071.3.579.2.5 93 1956 Unknown [id number] 2.16.840.1.378852.3.579.2.1 96 1956 Unknown [id number] 2.16.840.1.836457.3.579.2.1 96 1956 Unknown [id number] 2.16.840.1.858991.3.579.2.1 96 1956 Unknown [id number] 2.16.840.1.397150.3.579.2.1 96 1956 Unknown [id number] 2.16.840.1.442740.3.579.2.1 96 1956 Unknown [id number] 2.16.840.1.940208.3.579.2.1 96 1956 Unknown [id number] 2.16.840.1.401881.3.579.2.1 96 1956 Unknown [id number] 2.16.840.1.507245.3.579.2.1 96 1956 Unknown [id number] 2.16.840.1.634176.3.579.2.1 96 1956 Unknown [id number] 2.16.840.1.602840.3.579.2.7 27 1956 Unknown [id number] 2.16.840.1.036246.3.579.2.7 27 1956 Unknown [id number] 2.16.840.1.423073.3.579.2.7 27 1956 Unknown [id number] 2.16.840.1.357879.3.579.2.1 259 1956 Unknown [id number] 2.16.840.1.752893.3.579.2.1 259 1956 Unknown [id number] 2.16.840.1.597376.3.579.2.1 259 1956 Unknown [id number] 2.16.840.1.534811.3.579.2.1 259 1956 Unknown [id number] 2.16.840.1.266267.3.579.2.1 259 1956 Unknown [id number] 2.16.840.1.919489.3.579.2.1 259 1956 Unknown [id number] 2.16.840.1.990668.3.579.2.1 259 1956 Unknown [id number] 2.16.840.1.620908.3.579.2.1 259 1956 Unknown [id number] 2.16.840.1.170601.3.579.2.1 259 1956 Unknown [id number] 2.16.840.1.238196.3.579.2.1 259 1956 Unknown [id number] 2.16.840.1.745052.3.579.2.1 259 1956 Unknown [id number] 2.16.840.1.621168.3.579.2.1 259 1956 Unknown [id number] 2.16.840.1.733311.3.579.2.1 259 1956 Unknown [id number] 2.16.840.1.791265.3.579.2.1 259 1956 Unknown [id number] 2.16.840.1.725247.3.579.2.1 259 1956 Unknown [id number] 2.16.840.1.409272.3.579.2.1 1956 Unknown [id number] 2.16.840.1.904032.3.579.2.1 1956 Unknown [id number] 2.16.840.1.900891.3.579.2.1 1956 Unknown [id number] 2.16.840.1.888494.3.579.2.1 1956 Unknown [id number] 2.16.840.1.413844.3.579.2.1 259 Medicaid [id number] Medicare [id number] Self-pay Self Pay [id number] Unknown [id number] Social History Date Type Detail Facility Tobacco smoking stat us DCIS Unknown if ever smoked [facility] Start: 1955 Sex Assigned At Female F [facility] Start: 09-11-2020 End: 12-05-2023 Tobacco smoking status NHIS Never smoker [facility] Start: 09-11-2020 End: 12-05-2023 Tobacco use and exposure Never used [facility] Start: 09-11-2020 End: 01-02-2025 Alcohol intake Lifetime non-drinker (finding) [facility] Start: 09-11-2020 History SDOH Alcohol Frequency 1 [facility] Start: 1955 Sex Assigned At Not on file [facility] Start: 10-26-2023 End: 11-25-2024 Sex Assigned At [facility] Start: 10-26-2023 End: 11-25-2024 History of [...] To some extent [facility] (I/We) worried wheth er (my/our) food would run out before (I/we) got money to buy more. Never true [facility] Start: 10-04-2023 Alcohol Comment caffeine: more than 4 cups per day [facility] Start: 11-13-2024 Sex Female (finding) [facility] How hard is it for y ou to pay for the very basics like food, housing, medical care, and heating Somewhat hard [facility] Do you feel stress - tense, restless, nervous, or anxious, or unable to sleep at night because your mind is troubled all the time - these days [OSQ] Only a little [facility] NEGATED: Highlighted rowStart: JESEF History of tobacco use Passive smoker [facility] Goals Date Patient Goal Desired Activity /State Personal health goal Functional Status Date Assessment Result Facility 10-15-2024 Functional Status N/A [facility] Clinical Notes 08-30-2021 to 01-02-2025 Kaylene López NP - 01/02/2025 3:28 PM Светлана López, RIKKI - 01/02/2025 3:26 PM Светлана López NP - 01/02/2025 3:25 PM NIYAHUMBKATE DENNISON - 01/02/2025 2:40 PM ESTPatient Instructions Note Date & Type Note Facility 01-02-2025 History of Present illness Narrative Associated Problem(s): Flu-like symptoms Neg, still strong clinical suspicion for flu, d/t severe pulmonary conditions and weakness will send her to [facility] ER for evaluation DD: pneumonia, covid, flu, RSV Associated Problem(s): Chronic respiratory failure with hypoxia (CMS/HCC) Oxygen level 88-90% w walking, normal 94-95% w oxygen Associated Problem(s): Chronic obstructive pulmonary disease (COPD) (CMS/HCC) [employer]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 Images from the original note were not included. Diana Champion is a 69 y.o. female presents with chief complaint of No chief complaint on file. HPI: Pt 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 Mucus: green, yellow, brown Lives in assisted living, weakness hard getting up from bed. 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 Episode onset: 2 days. The problem occurs constantly. The problem has been gradually worsening. Associated symptoms include anorexia, congestion, coughing, fatigue, a fever, headaches, myalgias, a sore throat and weakness. Pertinent negatives include no abdominal pain, arthralgias, chest pain, chills, joint swelling, nausea, rash, vertigo, visual change or vomiting. Nothing aggravates the symptoms. SUBJECTIVE: MEDICATIONS: Current Outpatient Medications Medication Instructions albuterol HFA 90 mcg/act inhaler 2 puffs, Every 4 hours PRN albuterol 2.5 mg, Every 6 hours PRN baclofen (LIORESAL) 10 mg, Oral, 3 times daily ferrous sulfate 325 mg, Daily with breakfast Fbihioqiegq-Nybqocpbz-Jtucyb (Trelegy Ellipta) 200-62.5-25 MCG/ACT aerosol powder 1 [...] pramipexole (MIRAPEX) 0.25 mg, Oral, Nightly PRN pregabalin (Lyrica) 75 MG capsule TAKE 1 CAPSULE BY MOUTH TWICE DAILY (MORNING AND BEDTIME) sodium chloride 0.9 % nebulizer solution 3 mL, 2 times daily solifenacin (VESICARE) 10 mg, Oral, Daily traMADol (ULTRAM) 50 mg, Every 12 hours traZODone (DESYREL) 100 mg, Oral, Nightly ALLERGIES: Allergies Allergen Reactions Fentanyl Other Reaction(s): Hallucinating Vancomycin Unknown REVIEW OF SYMPTOMS: Review of Systems Constitutional: Positive for fatigue and fever. Negative for appetite change and chills. HENT: Positive for congestion, rhinorrhea, sinus pressure and sore throat. Negative for ear pain. Eyes: Negative for pain, discharge, redness and visual disturbance. Respiratory: Positive for cough, shortness of breath and wheezing. Cardiovascular: Negative for chest pain, palpitations and leg swelling. Gastrointestinal: Positive for anorexia and diarrhea. Negative for abdominal pain, blood in stool, constipation, nausea and vomiting. Genitourinary: Negative for difficulty urinating, dysuria and frequency. Musculoskeletal: Positive for myalgias. Negative for arthralgias, back pain and joint swelling. Skin: Negative for rash and wound. Neurological: Positive for weakness and headaches. Negative for dizziness, vertigo, tremors, seizures and syncope. Psychiatric/Behavioral: Negative for behavioral problems, self-injury and suicidal ideas. The patient is not nervous/anxious. Hematological: Does not bruise/bleed easily. Endocrine: Negative for polydipsia, polyphagia and polyuria. Allergic/Immunologic: Negative for environmental allergies and food allergies. PAST MEDICAL HISTORY Past Medical History: Diagnosis Date Alcohol screening Arthritis Asthma (CMS/HCC) At moderate risk for fall Benign essential HTN (CMS/HCC) Breast cancer screening by mammogram Chronic back pain greater than 3 months duration Chronic heart failure with preserved ejection fraction (CMS/HCC) Chronic kidney disease, stage III (moderate) (HCC) (CMS/HCC) Chronic obstructive pulmonary disease (COPD) (CMS/HCC) Colon cancer (CMS/HCC) Colorectal cancer (CMS/HCC) Contact w and exposure to oth viral communicable diseases COPD exacerbation (CMS/HCC) Coronary artery disease (CMS/HCC) Depression (CMS/HCC) Emphysema, unspecified (CMS/HCC) Encounter for gynecological examination (general) (routine) without abnormal findings Essential (primary) hypertension (CMS/HCC) Exposure to STD Gastroesophageal reflux disease General deterioration of health HPV in female Hyperlipidemia (CMS/HCC) Hyperuricemia Intertrigo Iron deficiency anemia Low back pain Morbid obesity with BMI of 40.0-44.9, adult (CMS/HCC) Osteoporosis screening Pneumonia Positive depression screening Post-menopausal Restless leg syndrome Right hip pain Urge incontinence Vitamin D deficiency Past Surgical History: Procedure Laterality Date BACK SURGERY 2004 CARDIAC CATHETERIZATION Left 06/14/2014 Left Heart-Ventricular Puncture CARDIAC CATHETERIZATION Left 08/13/2018 Left Heart-Ventricular Puncture FOOT SURGERY 09/2015 JOINT REPLACEMENT Left 08/01/2016 Hip replacement REVISION TOTAL HIP ARTHROPLASTY Left 03/[address] LINN SPINAL FUSION 05/07/2003 [facility] [place] TOTAL HIP ARTHROPLASTY Left 08/30/2019 REMOVED TOTAL KNEE ARTHROPLASTY Right 10/18/2018 DR SERRATO TUBAL LIGATION 1988 family history includes COPD in her father; Heart disease in her father and mother; Hyperlipidemia in her father and mother; Hypertension in her father and mother; Mental illness in her mother; Stroke in her father. OBJECTIVE: Visit Vitals BP 120/84 Pulse 78 Temp 99.6 F (Temporal) Resp 26 Wt 234 lb 3.2 oz SpO2 91% BMI 40.20 kg/m Smoking Status Never BSA 2.19 m Physical Exam Vitals and nursing note reviewed. Constitutional: General: She is not in acute distress (mild). Appearance: Normal appearance. She is obese. She is ill-appearing. HENT: Head: Normocephalic and atraumatic. Right Ear: Tympanic membrane, ear canal and external ear normal. Left Ear: Tympanic membrane, ear canal and external ear normal. Nose: Congestion and rhinorrhea present. Mouth/Throat: Mouth: Mucous membranes are moist. Pharynx: Posterior oropharyngeal erythema present. No oropharyngeal exudate. Eyes: Extraocular Movements: Extraocular movements intact. Conjunctiva/sclera: Conjunctivae normal. Cardiovascular: Rate and Rhythm: Normal rate and regular rhythm. Pulses: Normal pulses. Heart sounds: Normal heart sounds. Pulmonary: Effort: Pulmonary effort is normal. Breath sounds: Wheezing and rhonchi present. Comments: Deep harsh cough, sl labored breathing Abdominal: General: Bowel sounds are normal. There is no distension. Palpations: Abdomen is soft. There is no mass. Tenderness: There is no abdominal tenderness. Musculoskeletal: General: Normal range of motion. Cervical back: Normal range of motion and neck supple. Right lower leg: No edema. Left lower leg: No edema. Lymphadenopathy: Cervical: No cervical adenopathy. Skin: General: Skin is warm and dry. Capillary Refill: Capillary refill takes 2 to 3 seconds. Findings: No rash. Neurological: General: No focal deficit present. Mental Status: She is alert and oriented to person, place, and time. Psychiatric: Mood and Affect: Mood normal. Behavior: Behavior normal. Thought Content: Thought content normal. Judgment: Judgment normal. ASSESSMENT AND PLAN: No follow-ups on file. Problem List Items Addressed This Visit Chronic obstructive pulmonary disease (COPD) (CMS/HCC) [facility] insecticide expert Morbid (severe) obesity due to excess calories (CMS/HCC) Discussed with patient their BMI (actual, verses recommended). We have also discussed lifestyle modifications: attempts to perform physical activity as chronic conditions allow, also to monitor dietary intake: increasing protein/fruits/veggies and lowering carb intake (unless contraindicated). Limit sodas, juices, and sugary drinks. Essential hypertension (CMS/HCC) DASH diet Limit caffeine Contact office if chest pain, pressure, dizziness, shortness of breath, swelling legs Recommend slow position changes Current meds: does not take any Chronic respiratory failure with hypoxia (CMS/HCC) Oxygen level 88-90% w walking, normal 94-95% w oxygen Body mass index (BMI) 40.0-44.9, adult (CMS/HCC) Flu-like symptoms - Primary Neg, still strong clinical suspicion for flu, d/t severe pulmonary conditions and weakness will send her to [facility] ER for evaluation DD: pneumonia, covid, flu, RSV Relevant Orders STATUS COVID-19/FLU (Completed) Associated Problem(s): Morbid (severe) obesity due to excess calories (CMS/HCC) Discussed with patient their BMI (actual, verses recommended). We have also discussed lifestyle modifications: attempts to perform physical activity as chronic conditions allow, also to monitor dietary intake: increasing protein/fruits/veggies and lowering carb intake (unless contraindicated). Limit sodas, juices, and sugary drinks. Associated Problem(s): Urge incontinence Take vesicare Associated Problem(s): Chronic kidney disease, stage 3a (HCC) (CMS/HCC) Monitor labs Associated Problem(s): Malignant neoplasm of rectosigmoid junction (CMS/HCC) Hx of this Associated Problem(s): Gastroesophageal reflux disease Recommendations: freq small meals, nothing to eat or drink at least 2 hours prior to bed, limit caffeine, alcohol, as well as spicy foods Meds to limit or avoid if possible: NSAIDS Elevate HOB if possible Current meds: omeprazole Associated Problem(s): Essential hypertension ([facility]/HCC) DASH diet Limit caffeine Contact office if chest pain, pressure, dizziness, shortness of breath, swelling legs Recommend slow position changes Current meds: does not take any documented in this encounter [facility] 12-17-2024 History of Present illness Narrative Skin [...] Visit: 6 months documented in this encounter [facility] 12-17-2024 History of Present illness Narrative Images from the original note were not included. HISTORY OF PRESENT ILLNESS: EST PT Diana Champion is an 69 y.o. @ female. EST PT HERE FOR YEARLY REACHECK RT TKA ~6YRS 2MO (10/18/18) - XRAY RT KNEE & RT HIP TODAY EPIC 12/17/24 [facility] NO BONE SCAN NO PAIN MANAGEMENT NO RECENT PT WALKING WITH A WALKER. CONSTANT PAIN IN KNEE, DIFFUSE. +TYL AND USING ICE. +CRACKING, POPPING, BURNING. +BIOFREEZE. NOTES THIS HAS ALL BEEN GOING ON SINCE SX. HX LT HIP REVISION PER DR LINN 03/2020- PT STATES SHE NEEDS RT ELZA; NOT READY YET PER PT. ALLERGIES: Allergies Allergen Reactions Fentanyl Other Reaction(s): Hallucinating Vancomycin Unknown HOME MEDICATIONS: Current Outpatient Medications Medication Instructions albuterol HFA 90 mcg/act inhaler 2 puffs, Every 4 hours PRN albuterol 2.5 mg, Every 6 hours PRN baclofen (LIORESAL) 10 mg, Oral, 3 times daily ferrous sulfate 325 mg, Daily with breakfast Khuvhulacxz-Wqrsaugck-Igmznq (Trelegy Ellipta) 200-62.5-25 MCG/ACT aerosol powder 1 [...] be necessary. Pt will consult with her Hydraulic Strainer Operator to see if she would be a canidate for surgery and Contact Dr. Linn, as she will likely need surgery at Tertiary facility. Questions answered in laymen terms at the bedside. The diagnosis, home exercise plan and any ongoing restrictions/ recommendations reviewed. If unable to be reached in office, I recommend evaluation at nearest Emergency Room if any symptoms worsened or new symptoms develop for requiring urgent evaluation. documented in this encounter [facility] 12-13-2024 History of Present illness Narrative [...] skin of chest Chest - Medial (Center) [place] macule at the biopsy site. Destr of lesion Complexity: simple Destruction method: cryotherapy Informed consent: discussed and consent obtained Informed consent comment: The risks of the procedure were discussed, including, but not limited to risks of scarring, darker or water pump servicer pigmentary changes, recurrence, infection, and incomplete removal [...] or tenderness. Additional details: Previous accession number: [id number] Discussed treatment options excision vs cryotherapy in detail. Patient opted for cryotherapy. Cryotherapy completed today, see procedure note. Return to clinic prior to next scheduled visit for any signs or symptoms of recurrence, reviewed the signs and symptoms. Recommended 6 month skin exam. Next Visit: as scheduled documented in this encounter [facility] 11-28-2024 History of Present illness Narrative Associated Problem(s): Chronic obstructive pulmonary disease (COPD) ([facility]) Was admitted to [facility] for COPD with acute exacerbation. Was [...] for Hospital Follow-up. HPI Was admitted to [facility] for COPD with acute exacerbation. Was [...] This Visit Chronic obstructive pulmonary disease (COPD) ([facility]) - Primary Was admitted to [facility] for COPD with acute exacerbation. Was [...] hospital follow up. documented in this encounter [facility] 11-28-2024 Instructions Aida Reese NP - 11/28/2024 1:[address] Mcclain's office to see if he wants to see you for hospital follow up sooner than January. Take and finish all medications as directed. documented in this encounter [facility] 11-12-2024 History of Present illness Narrative Associated Problem(s): Chronic obstructive pulmonary disease (COPD) (CMS/[facility]) 5 days ago woke up, body aches, [...] 1 g tablet documented in this encounter [facility] 11-12-2024 Instructions Aida Reese NP - [...] NEAREST EMERGENCY DEPARTMENT. documented in this encounter [facility] 10-17-2024 Note Attestation signed by Emelia [...] Age: 69 y.o. : 1955 Account No.: [id number] Referring physician: Dr. Bo Mcclain Chief complaint: Recurreny pneumonia HPI Diana Champion is a 69 y.o. female with PMHx of chronic hypoxic respiratory failure on 3L home O2, tracheobronchomalacia who is presenting to clinic for follow up. Patient was previously referred by Dr. Bo Mcclain of [facility] in June of 2024. Patient had been having frequent pneumonias requiring hospitalization thought to be secondary to dynamic airway collapse. Therefore we performed bronchoscopy with airway inspection on 07/02/2024 which showed severe tracheobronchomalacia with mucous plugging. She subsequently followed up post procedure and different treatment options were discussed. She was hesitant to undergo APC or tracheal bronchoplasty at [facility] and instead opted to trial CPAP to [...] years. 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 Her family history is positive for COPD [...] Diagnosis Date Allergic rhinitis Anemia Asthma Cancer ([facility]) Chronic heart failure with preserved ejection fraction ([facility]) Chronic hypoxic respiratory failure ([facility]) Chronic kidney disease COPD (chronic obstructive pulmonary disease) ([facility]) Coronary artery disease Depression Diabetes mellitus ([facility]) Dyspnea GERD (gastroesophageal reflux disease) Hyperlipidemia Lumbar spondylosis Other secondary pulmonary hypertension ([facility]) Pneumonia Primary osteoarthritis of right hip Pulmonary [...] mg by bessie (more content not included)... [facility] 10-15-2024 Hospital Discharge instructions Patient Education 10/15/2024 [...] your health care provider. General instructions Take lheo-eua-cawjxlx and prescription medicines only as told by [...] provider. Document Revised: 07/12/2021 Document Reviewed: 07/12/2021 [employer] Patient Education 2023 [employer]. Follow Up Care 10/11/2024 14:37:09 With:MAG BLOUNT PA-C, URL Address: [address] [place] [address] When:Within 3 Month(s) [facility] 10-15-2024 Note Urology Office/Clini c Note Chief [...] 235.894 lb BMI: 40.27 Assessment/Plan [facility] CKD - Joana COPD/Pulm - Samsa/Omballi. [...] could include cysto, urodynamics, Botox, SNM. Orders: [id number] Measure Post Void residual urine and/or bladder capacity by US- non-imaging E&M of New Patient Moderate 45-59 Min 20251 Urine Culture Urnls Dip Stick Auto w/o Microscopy POC 76278 Follow-up With When Contact Information JOSE ALEJANDRO MICHAUD, MAG Hester, URL In 3 months [address] [place] [address] Additional Instructions: Patient Education Overactive [...] drop(s) Allergies f (more content not included)... [facility] Comment on above: Result Comment: Elec tronically Signed By: MAG BLOUNT PA-C\.br\Date and Time Signed: 10/15/24 16:57 EST 10-15-2024 [...] health care provider. General instructions ??? Take yrig-nfq-zprdluk and prescription medicines only as told by [...] drink, and whe (more content not included)... [facility] 10-11-2024 History of Present illness Narrative Images [...] pending biopsy results documented in this encounter [facility] 10-07-2024 History of Present illness Narrative [...] Chronic kidney disease, stage III (moderate) (HCC) (CMS/HCC) Follows with Dr. Bernard. Monitor CMP, avoid nephrotoxic agents. Associated Problem(s): Morbid obesity with BMI of 40.0-44.9, adult ([facility]) Discussed with patient their BMI (actual, verses [...] Pulmonology- Dr. Mcclain and Dr. Yoo Cardiology- [facility] Ortho- Dr. Corrales Nephrology- Dr. Sky [...] Chronic kidney disease, stage III (moderate) (HCC) ([facility]) Follows with Dr. Bernard. Monitor CMP, avoid nephrotoxic agents. Morbid obesity with BMI of 40.0-44.9, adult (CMS/[facility]) Discussed with patient their BMI (actual, verses recommended). We have also discussed lifestyle modifications: attempts to perform physical activity as chronic conditions allow, also to monitor dietary intake: increasing protein/fruits/veggies and lowering carb intake (unless contraindicated). Limit sodas, juices, and sugary drinks. Urge incontinence - Primary Relevant Orders Ambulatory referral to Urology Chronic respiratory failure with hypoxia ([facility]) Following closely with Dr. Mcclain. Recent exacerbation [...] referral to Dermatology documented in this encounter [facility] 09-03-2024 Telephone encounter Note Pt requesting a refill on her Omeprazole BECK:08/19/2024 NOV:10/09/2024 [facility] 09-03-2024 Miscellaneous Notes Pt requesting a refill on her Omeprazole BECK:08/19/2024 NOV:10/09/2024 documented in this encounter [facility] 08-22-2024 Telephone encounter Note Patient called in saying you wanted her to do a stool sample, but she has not gotten an order for that, so she wasn't sure when she was supposed to do that. Also her pregabalin needs refilled but she said that [facility] had a hard time getting it in last time. MAYANK [facility] 08-22-2024 Miscellaneous Notes Patient called in [...] spelled that right) nurse phone number is [phone] or you can contact patient she said. JN documented in this encounter [facility] 08-19-2024 History of Present illness Narrative Last Monday left hospital and has been having diarrhea about 6 times a day. Images from the original note were not included. Subjective Patient ID: Diana Champion is a 69 y.o. female who presents for No chief complaint on file.. [facility] Hospital follow up; Was seen at [facility] 08/08/24-08/12/24 ARF; Was discharged home on [...] This Visit Moderate persistent asthma with exacerbation (CMS/HCC) - Primary Other Visit Diagnoses Diarrhea, unspecified type Relevant Orders Clostridium difficile,EIA documented in this encounter [facility] 08-19-2024 Instructions Aida Reese NP - 08/19/2024 11:30 AM EDT Continue Augmentin. Start taking OTC probiotics Have stool culture completed to test for C.Difficile. If negative continue ATB regimen as directed. If positive we will treat accordingly. Keep all follow up appointments as scheduled. documented in this encounter [facility] 08-13-2024 Note Gram Stain Evaluation This specimen is of good quality and is acceptable for routine [facility] 08-13-2024 Note [facility] GRAM STAIN EVALUATION bacterial culture. [facility] 08-13-2024 Telephone encounter Note Patient's home [...] spelled that right) nurse phone number is [phone] or you can contact patient she said. JN [facility] 07-16-2024 Telephone encounter Note Pt informed of lab results and provider recommendations. Pt does do chair exercises four times a week and walks (with walker) but due to her health conditions she is limited. Pt is in a wheelchair with very limited ambulation -SCR [facility] 07-16-2024 Miscellaneous Notes Pt informed of [...] Sent: 07/12/2024 9:29 AM EDT To: Aida Resee NP documented in this encounter [facility] 07-16-2024 Telephone encounter Note ----- Message [...] Thank you -BF ----- Message ----- From: Tip Lab Results In Sent: 07/12/2024 9:29 AM EDT To: Aida Reese NP [facility] 07-11-2024 Note Attestation signed by Emelia [...] Age: 68 y.o. : 1955 Account No.: [id number] [facility] Chief Complaint: follow up after [...] years. 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 Verbal consent to provide and bill this service was obtained on: 07/11/24 No signature was obtained due to the COVID-19 pandemic. Past Medical History: Diagnosis Date Allergic rhinitis Anemia Asthma Cancer ([facility]) Chronic heart failure with preserved ejection fraction ([facility]) Chronic hypoxic respiratory failure ([facility]) Chronic kidney disease COPD (chronic obstructive pulmonary disease) ([facility]) Coronary artery disease Depression Diabetes mellitus ([facility]) Dyspnea GERD (gastroesophageal reflux disease) Hyperlipidemia Lumbar spondylosis Other secondary pulmonary hypertension ([facility]) Pneumonia Primary osteoarthritis of right hip Pulmonary [...] by mouth every other day. Historical Provider, ihpvzhpiqwf-tgtosrsbe-hflqgtfy 100-62.5-25 mcg blister with device Historical Provider, [...] (Theragran-M) 9 mg (more content not included)... [facility] 07-11-2024 History of Present illness Narrative Associated [...] with preserved ejection fraction (CMS/HCC) Follows Cardiology- [facility] Was seen in May 2024 Lasix 20mg Associated Problem(s): Benign essential HTN (CMS/HCC) Currently not taking any medications. Bp is well controlled. Averages 120's-130's. Images from the original note were not included. Subjective Patient ID: Diana Champion is a 68 y.o. female who presents for Follow-up. HPI Specialists: Pulmonology- Dr. Mcclain and Dr. Yoo Cardiology- [facility] [place] Ortho- Dr. Corrales Nephrology- Dr. Sky Was seeing Urology 5 years ago for urinary retention. Now is having mixed incontinence. Does not want referral today, would like to revisit at next visit. Was seen on 06/12/24 for Hospital follow up. Is following closely with Pulmonology; Tracheobronchomalacia HTN: Currently not taking any medications. Bp is well controlled. Averages 120's-130's. HFpEF: Follows Cardiology- [facility] Was seen in May 2024 Lasix [...] with preserved ejection fraction (CMS/HCC) Follows Cardiology- [facility] Was seen in May 2024 Lasix [...] with Pulmonology; Tracheobronchomalacia documented in this encounter [facility] 07-11-2024 Instructions Aida Reese NP - 07/11/2024 8:30 AM EDT FASTING labs ordered. Nothing to eat or drink for 12 hours prior to blood draw. Water and black coffee ok. documented in this encounter [facility] 07-02-2024 Note Attestation signed by Ghulam [...] chronic cough POSTPROCEDURE DIAGNOSIS: Severe tracheobronchomalacia PROCEDURE LEATHER LEVELER: Goran Canseco ATTENDING PHYSICIAN: Dr. Ghulam Petersen [...] by trained RN and supervised by the Hydraulic Strainer Operator. Continuous monitoring of heart rate, respiratory rate, [...] 1-2 weeks for treatment options for tracheobronchomalacia [facility] 07-02-2024 Note Patient: Yannick Champion Pre-sedation Evaluation: Sedation necessary for: Analgesia Requesting service: Pulmonary History of Present Illness: Refer to H &P HELP DESK AGENT/Current Medications: Reviewed Recent sedation/surgery (24 hours): No Review of Systems: Negative NPO guidelines met: Yes Physical Exam: Airway Mallampati: II Neck ROM: full Cardiovascular (-) murmur, friction rub, carotid bruits Dental Pulmonary (+) on nasal cannula (-) tachypnea, accessory muscle use (-) wheezes, rales Plan: ASA 3 Moderate Proceed with consious sedation for Bronchoscopy and BAL [facility] 06-25-2024 Note Attestation signed by Emelia Yoo [...] Age: 68 y.o. : 1955 Account No.: [id number] Referring physician: Dr. Bo Mcclain Chief complaint: Recurreny pneumonia HPI Diana Champion is a 68 y.o. female with PMHx of reportedly COPD, chronic hypoxic respiratory failure on 2L home O2 who is presenting to clinic as a new patient after being referred by Dr. oB Baker of [facility]. Patient has been admitted 4 times [...] years. 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 Yes Historical Provider, ouqjfldwsfp-hhaqgqviu-huhzlqdu 100-62.5-25 mcg blister with device Yes Historical [...] mEq ER ta (more content not included)... [facility] 05-13-2024 Note [facility] Cardiology Clinic Note Chief Complaint: Patient [...] breath since then. She has seen her insecticide expert. Her chest pain is noncardiac. She has [...] a past medical history of Asthma, Cancer (CMS/[facility]), COPD (chronic obstructive pulmonary disease) (CMS/HCC), Coronary artery disease, GERD (gastroesophageal reflux disease), [...] mouth every other day., Disp: , Rfl: itoqxyiyokb-ygpmwzixm-kieailua 100-62.5-25 mcg blister with device, , Disp: [...] Examination: GENERAL: a (more content not included)... [facility] 09-07-2023 Evaluation note Encounter Date Diagnosis Assessment Notes Sep, Hypomagnesemia (ICD-10 - E83.42) [facility] Other 10-23-2023 Evaluation note* Encounter Date Diagnosis Assessment Notes Treatment Notes Treatment Clinical Notes Aug, Nico hy kid w cr kid I-IV (ICD-10 - I12.9) [facility] Other 10-12-2023 Evaluation note* Encounter Date Diagnosis [...] PPI induced GI losses. Continue oral Magnesium [facility] Other 05-19-2023 NotePROCEDURE: XR HIP RT 2 3V W PELVIS HISTORY: Pain in right hip joint , chronic COMPARISON: XR L-spine 02/26/2019, XR left hip with pelvis 03/11/2017 FINDINGS: BONES:Complete loss of the right hip joint space with femm-fu-gjzq articulation, subchondral sclerosis and cysts, and large periarticular degenerative osteophytes. No fracture or dislocation. Left hip replacement. Mechanical fusion of L5-S1 and moderate dextroscoliosis of lumbar spine. SOFT TISSUES:No visible soft tissue swelling. EFFUSION:None visible. OTHER: Negative. IMPRESSION: 1. Marked degenerative joint disease of the right hip; progressed since prior study. 2. Stable surgical changes. Electronically authenticated by: STEPH GRANADOS Date: 2023-03-24 12:55[facility]04-27-2023 Evaluation note* Encounter Date Diagnosis Assessment Notes Treatment Notes Treatment Clinical Notes Feb, Nico guillen kid w cr kid I-IV [...] PPI induced GI losses. Continue oral Magnesium [facility] Other 02-02-2023 Procedure [facility]01-04-2023 Evaluation note* Encounter Date Diagnosis Assessment Notes Treatment Notes Treatment Clinical Notes Nov, Hypokalemia (ICD-10 - E87.6) Nov, Hypomagnesemia (ICD-10 - E83.42) [facility] Other 10-04-2022 Evaluation note* Encounter Date Diagnosis [...] office does not accept her new insurance. [facility] Other 09-02-2022 Evaluation note* Encounter Date Diagnosis Assessment Notes Treatment Notes Treatment Clinical Notes Jul, History of colon cancer (ICD-10 - Z85.038) [facility] Other 01-12-2022 Evaluation note* Encounter Date Diagnosis [...] potassium wasting. I have prescribed oral potassium. [facility] Other 10-25-2021 Evaluation note* Encounter Date Diagnosis [...] care instructions given in writting by [facility] document [facility] Other Evaluation + Plan note Future Appointments Appointment Date:01/13/2025 09:40:00 AM Scheduled Provider:MAG BLOUNT PA-C Location:[facility] Appointment Type:URO Office Visit Diagnostic Tests Pending * Urine Culture 10/15/24 [facility] Evaluation + Plan note Future Appointments Appointment Date:01/13/2025 09:40:00 AM Scheduled Provider:MAG BLOUNT PA-C Location:[facility] Appointment Type:URO Office Visit [facility] evaluation noteNo InformationNort [employer] Other Evaluation note* Diagnosis Onset Date Resolution Status History of colon cancer acut e [facility] Work Phone: [email or web address] note* Diagnosis Onset Date Resolution Status Hypokalemia acute Hypomagnesemia acute Stage 3 chronic kidney disease acute COVID noneactive Pneumonia noneactive [facility] Work Phone: [email or web address] note* Diagnosis Moderate persistent asthma with exacerbation [...] Unspecified essential hypertension JEANNE (acute kidney injury) (CMS/[facility]) Leukocytosis, unspecified type Chronic respiratory failure with hypoxia (CMS/HCC) Chronic bilateral low back pain without sciatica- Primary Vitamin D deficiency Chronic bilateral low back pain without sciatica- Primary Pneumonia due to infectious organism, unspecified laterality, unspecified part of lung- Primary Screening mammogram for breast cancer Chronic respiratory failure with hypoxia (CMS/HCC) Pulmonary emphysema, unspecified emphysema type (CMS/HCC) Essential hypertension ([facility]/HCC) Unspecified essential hypertension Morbid obesity with BMI of 40.0-44.9, adult ([facility]) Hospital discharge follow-up- Primary Other follow-up examination Chronic respiratory failure with hypoxia (CMS/HCC) Severe persistent asthma without complication ([facility]/HCC) Severe persistent asthma with acute exacerbation (CMS/HCC)- Primary Severe persistent asthma with exacerbation ([facility]/HCC)- Primary Unspecified asthma, with exacerbation Hospital discharge follow-up- Primary Other follow-up examination Chronic respiratory failure with hypoxia ([facility])- Primary Hospital discharge follow-up Other follow-up examination Benign essential HTN ([facility]/HCC) Chronic heart failure with preserved ejection fraction (CMS/HCC) Severe persistent asthma without complication (CMS/HCC) Moderate mixed hyperlipidemia not requiring statin therapy ([facility]) Morbid obesity with BMI of 40.0-44.9, adult ([facility]) Opioid use Chronic, continuous use of opioids Chronic back pain greater than 3 months duration Moderate persistent asthma with exacerbation (CMS/HCC)- Primary Unspecified asthma, with exacerbation Diarrhea, unspecified type documented in this encounter [facility] HealthcareEvaluation note* Diagnosis Moderate persistent asthma with exacerbation ([facility]/HCC)- Primary Unspecified asthma, with exacerbation Non-recurrent acute suppurative otitis media of both ears without spontaneous rupture of tympanic membranes Colorectal cancer ([facility]/HCC) Malignant neoplasm of colon, unspecified site Chronic heart failure with preserved ejection fraction (CMS/HCC) Pulmonary emphysema, unspecified emphysema type (CMS/HCC) Moderate episode of recurrent major depressive disorder (CMS/HCC)- Primary Moderate persistent asthma with exacerbation ([facility]/HCC) Unspecified asthma, with exacerbation Medicare annual wellness visit, subsequent Severe persistent asthma with acute exacerbation ([facility]/HCC)- Primary Hospital discharge follow-up Other follow-up examination Severe persistent asthma without complication (CMS/HCC)- Primary Essential hypertension (CMS/HCC) Unspecified essential hypertension JEANNE (acute kidney injury) ([facility]) Leukocytosis, unspecified type Chronic respiratory failure with hypoxia ([facility]) Chronic bilateral low back pain without sciatica- Primary Vitamin D deficiency Chronic bilateral low back pain without sciatica- Primary Pneumonia due to infectious organism, unspecified laterality, unspecified part of lung- Primary Screening mammogram for breast cancer Chronic respiratory failure with hypoxia ([facility]) Pulmonary emphysema, unspecified emphysema type ([facility]/HCC) Essential hypertension ([facility]/HCC) Unspecified essential hypertension Morbid obesity with BMI of 40.0-44.9, adult ([facility]) Hospital discharge follow-up- Primary Other follow-up examination Chronic respiratory failure with hypoxia ([facility]) Severe persistent asthma without complication ([facility]) Severe persistent asthma with acute exacerbation ([facility])- Primary Severe persistent asthma with exacerbation ([facility])- Primary Unspecified asthma, with exacerbation Hospital discharge follow-up- Primary Other follow-up examination Chronic respiratory failure with hypoxia ([facility])- Primary Hospital discharge follow-up Other follow-up examination Benign essential HTN ([facility]) Chronic heart failure with preserved ejection fraction ([facility]/HCC) Severe persistent asthma without complication ([facility]/HCC) Moderate mixed hyperlipidemia not requiring statin therapy ([facility]) Morbid obesity with BMI of 40.0-44.9, adult ([facility]) Opioid use Chronic, continuous use of opioids Chronic back pain greater than 3 months duration Restless leg syndrome Restless legs syndrome (RLS) documented in this encounter [facility] HealthcareEvaluation note* Diagnosis Moderate persistent asthma with exacerbation ([facility])- Primary Unspecified asthma, with exacerbation Non-recurrent acute suppurative otitis media of both ears without spontaneous rupture of tympanic membranes Colorectal cancer ([facility]) Malignant neoplasm of colon, unspecified site Chronic heart failure with preserved ejection fraction ([facility]) Pulmonary emphysema, unspecified emphysema type ([facility]/HCC) Moderate episode of recurrent major depressive disorder ([facility])- Primary Moderate persistent asthma with exacerbation ([facility]) Unspecified asthma, with exacerbation Medicare annual wellness visit, subsequent Severe persistent asthma with acute exacerbation ([facility])- Primary Hospital discharge follow-up Other follow-up examination Severe persistent asthma without complication ([facility]/HCC)- Primary Essential hypertension ([facility]) Unspecified essential hypertension JEANNE (acute kidney injury) ([facility]) Leukocytosis, unspecified type Chronic respiratory failure with hypoxia (CMS/HCC) Chronic bilateral low back pain without sciatica- Primary Vitamin D deficiency Chronic bilateral low back pain without sciatica- Primary Pneumonia due to infectious organism, unspecified laterality, unspecified part of lung- Primary Screening mammogram for breast cancer Chronic respiratory failure with hypoxia ([facility]/HCC) Pulmonary emphysema, unspecified emphysema type ([facility]/HCC) Essential hypertension ([facility]/HCC) Unspecified essential hypertension Morbid obesity with BMI of 40.0-44.9, adult ([facility]) Hospital discharge follow-up- Primary Other follow-up examination Chronic respiratory failure with hypoxia (CMS/HCC) Severe persistent asthma without complication ([facility]/HCC) Severe persistent asthma with acute exacerbation ([facility]/HCC)- Primary Severe persistent asthma with exacerbation ([facility]/HCC)- Primary Unspecified asthma, with exacerbation Hospital discharge follow-up- Primary Other follow-up examination Chronic respiratory failure with hypoxia ([facility])- Primary Hospital discharge follow-up Other follow-up examination Benign essential HTN ([facility]) Chronic heart failure with preserved ejection fraction ([facility]/HCC) Severe persistent asthma without complication ([facility]/HCC) Moderate mixed hyperlipidemia not requiring statin therapy ([facility]) Morbid obesity with BMI of 40.0-44.9, adult ([facility]) Opioid use Chronic, continuous use of opioids Chronic back pain greater than 3 months duration Gastroesophageal reflux disease without esophagitis Esophageal reflux documented in this encounter [facility] HealthcareEvaluation noteNo assessment information availableJ.W. [facility] Work Phone: Evaluation note* Diagnosis Moderate persistent asthma with exacerbation ([facility]/HCC)- Primary Unspecified asthma, with exacerbation Non-recurrent acute suppurative otitis media of both ears without spontaneous rupture of tympanic membranes Colorectal cancer ([facility]/HCC) Malignant neoplasm of colon, unspecified site Chronic heart failure with preserved ejection fraction ([facility]/HCC) Pulmonary emphysema, unspecified emphysema type ([facility]/HCC) Moderate episode of recurrent major depressive disorder ([facility]/HCC)- Primary Moderate persistent asthma with exacerbation ([facility]/HCC) Unspecified asthma, with exacerbation Medicare annual wellness visit, subsequent Severe persistent asthma with acute exacerbation ([facility]/HCC)- Primary Hospital discharge follow-up Other follow-up examination Severe persistent asthma without complication ([facility]/HCC)- Primary Essential hypertension ([facility]/HCC) Unspecified essential hypertension JEANNE (acute kidney injury) ([facility]) Leukocytosis, unspecified type Chronic respiratory failure with hypoxia ([facility]/HCC) Chronic bilateral low back pain without sciatica- Primary Vitamin D deficiency Chronic bilateral low back pain without sciatica- Primary Pneumonia due to infectious organism, unspecified laterality, unspecified part of lung- Primary Screening mammogram for breast cancer Chronic respiratory failure with hypoxia ([facility]) Pulmonary emphysema, unspecified emphysema type ([facility]/HCC) Essential hypertension ([facility]/HCC) Unspecified essential hypertension Morbid obesity with BMI of 40.0-44.9, adult ([facility]) Hospital discharge follow-up- Primary Other follow-up examination Chronic respiratory failure with hypoxia ([facility]/HCC) Severe persistent asthma without complication ([facility]/HCC) Severe persistent asthma with acute exacerbation ([facility])- Primary Severe persistent asthma with exacerbation ([facility])- Primary Unspecified asthma, with exacerbation Hospital discharge follow-up- Primary Other follow-up examination Chronic respiratory failure with hypoxia ([facility])- Primary Hospital discharge follow-up Other follow-up examination Benign essential HTN ([facility]) Chronic heart failure with preserved ejection fraction ([facility]) Severe persistent asthma without complication ([facility]/HCC) Moderate mixed hyperlipidemia not requiring statin therapy ([facility]) Morbid obesity with BMI of 40.0-44.9, adult ([facility]) Opioid use Chronic, continuous use of opioids Chronic back pain greater than 3 months duration Vaginal guero- Primary Candidiasis of vulva and vagina documented in this encounter [facility] HealthcareEvaluation note* Diagnosis Moderate persistent asthma with exacerbation ([facility]/HCC)- Primary Unspecified asthma, with exacerbation Non-recurrent acute suppurative otitis media of both ears without spontaneous rupture of tympanic membranes Colorectal cancer ([facility]) Malignant neoplasm of colon, unspecified site Chronic heart failure with preserved ejection fraction ([facility]/HCC) Pulmonary emphysema, unspecified emphysema type ([facility]/HCC) Moderate episode of recurrent major depressive disorder ([facility])- Primary Moderate persistent asthma with exacerbation ([facility]) Unspecified asthma, with exacerbation Medicare annual wellness visit, subsequent Severe persistent asthma with acute exacerbation ([facility])- Primary Hospital discharge follow-up Other follow-up examination Severe persistent asthma without complication ([facility]/HCC)- Primary Essential hypertension ([facility]/HCC) Unspecified essential hypertension JEANNE (acute kidney injury) ([facility]) Leukocytosis, unspecified type Chronic respiratory failure with hypoxia ([facility]/HCC) Chronic bilateral low back pain without sciatica- Primary Vitamin D deficiency Chronic bilateral low back pain without sciatica- Primary Pneumonia due to infectious organism, unspecified laterality, unspecified part of lung- Primary Screening mammogram for breast cancer Chronic respiratory failure with hypoxia ([facility]/HCC) Pulmonary emphysema, unspecified emphysema type (CMS/HCC) Essential hypertension ([facility]/HCC) Unspecified essential hypertension Morbid obesity with BMI of 40.0-44.9, adult ([facility]) Hospital discharge follow-up- Primary Other follow-up examination Chronic respiratory failure with hypoxia ([facility]/HCC) Severe persistent asthma without complication ([facility]/HCC) Severe persistent asthma with acute exacerbation ([facility]/HCC)- Primary Severe persistent asthma with exacerbation ([facility])- Primary Unspecified asthma, with exacerbation Hospital discharge follow-up- Primary Other follow-up examination Chronic respiratory failure with hypoxia ([facility])- Primary Hospital discharge follow-up Other follow-up examination Benign essential HTN ([facility]) Chronic heart failure with preserved ejection fraction ([facility]) Severe persistent asthma without complication ([facility]) Moderate mixed hyperlipidemia not requiring statin therapy ([facility]) Morbid obesity with BMI of 40.0-44.9, adult ([facility]) Opioid use Chronic, continuous use of opioids Chronic back pain greater than 3 months duration Restless leg syndrome Restless legs syndrome (RLS) documented in this encounter [facility] HealthcareEvaluation note* Diagnosis Moderate persistent asthma with exacerbation ([facility]/HCC)- Primary Unspecified asthma, with exacerbation Non-recurrent acute suppurative otitis media of both ears without spontaneous rupture of tympanic membranes Colorectal cancer ([facility]) Malignant neoplasm of colon, unspecified site Chronic heart failure with preserved ejection fraction ([facility]) Pulmonary emphysema, unspecified emphysema type ([facility]) Moderate episode of recurrent major depressive disorder ([facility])- Primary Moderate persistent asthma with exacerbation ([facility]) Unspecified asthma, with exacerbation Medicare annual wellness visit, subsequent Severe persistent asthma with acute exacerbation ([facility])- Primary Hospital discharge follow-up Other follow-up examination Severe persistent asthma without complication ([facility]/HCC)- Primary Essential hypertension ([facility]) Unspecified essential hypertension JEANNE (acute kidney injury) ([facility]) Leukocytosis, unspecified type Chronic respiratory failure with hypoxia ([facility]) Chronic bilateral low back pain without sciatica- Primary Vitamin D deficiency Chronic bilateral low back pain without sciatica- Primary Pneumonia due to infectious organism, unspecified laterality, unspecified part of lung- Primary Screening mammogram for breast cancer Chronic respiratory failure with hypoxia (CMS/HCC) Pulmonary emphysema, unspecified emphysema type (CMS/HCC) Essential hypertension (CMS/HCC) Unspecified essential hypertension Morbid obesity with BMI of 40.0-44.9, adult ([facility]) Hospital discharge follow-up- Primary Other follow-up examination [...] Morbid obesity with BMI of 40.0-44.9, adult ([facility]) Opioid use Chronic, continuous use of opioids Chronic back pain greater than 3 months duration Urge incontinence- Primary Morbid obesity with BMI of 40.0-44.9, adult ([facility]) 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 Stage 3a chronic kidney disease (HCC) ([facility]) Chronic respiratory failure with hypoxia (CMS/HCC) documented in this encounter [facility] HealthcareEvaluation note* [...] Morbid obesity with BMI of 40.0-44.9, adult ([facility]) Hospital discharge follow-up- Primary Other follow-up examination [...] Moderate mixed hyperlipidemia not requiring statin therapy ([facility]/HCC) Morbid obesity with BMI of 40.0-44.9, adult ([facility]) Opioid use Chronic, continuous use of opioids Chronic back pain greater than 3 months duration Urge incontinence- Primary Morbid obesity with BMI of 40.0-44.9, adult ([facility]/HCC) 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9, adult ([facility]) Opioid use Chronic, continuous use of opioids Chronic back pain greater than 3 months duration Urge incontinence- Primary Morbid obesity with BMI of 40.0-44.9, adult ([facility]) 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 Stage 3a chronic kidney disease (HCC) ([facility]) Chronic respiratory failure with hypoxia ([facility]) Urge incontinence documented in this encounter [facility] HealthcareEvaluation note* Diagnosis Moderate persistent asthma [...] obesity with BMI of 40.0-44.9, adult (CMS/HCC) Hospital discharge follow-up- Primary Other follow-up examination [...] (CMS/HCC) Chronic respiratory failure with hypoxia (CMS/HCC) Moderate episode of recurrent major depressive disorder (CMS/HCC) documented in this encounter [facility] HealthcareEvaluation note* Diagnosis Benign essential HTN (CMS/HCC)- Primary Chronic heart failure with preserved ejection fraction (CMS/HCC) Severe persistent asthma without complication (CMS/HCC) Moderate mixed hyperlipidemia not requiring statin therapy (CMS/HCC) Morbid obesity with BMI of 40.0-44.9, adult (CMS/HCC) documented in this encounter [facility] HealthcareEvaluation note* Diagnosis Chronic bilateral low back pain without sciatica documented in this encounter [facility] HealthcareEvaluation note* Diagnosis Moderate episode of recurrent major depressive disorder (HCC) ([facility]) Urge incontinence documented in this encounter [facility] HealthcareEvaluation note* Diagnosis Moderate persistent asthma with exacerbation ([facility]/HCC)- Primary Unspecified asthma, with exacerbation Non-recurrent acute suppurative otitis media of both ears without spontaneous rupture of tympanic membranes Colorectal cancer ([facility]/HCC) Malignant neoplasm of colon, unspecified site Chronic heart failure with preserved ejection fraction ([facility]) Pulmonary emphysema, unspecified emphysema type ([facility]/HCC) Moderate episode of recurrent major depressive disorder (CMS/HCC)- Primary Moderate persistent asthma with exacerbation ([facility]/HCC) Unspecified asthma, with exacerbation Medicare annual wellness visit, subsequent Severe persistent asthma with acute exacerbation ([facility]/HCC)- Primary Hospital discharge follow-up Other follow-up examination Severe persistent asthma without complication (CMS/HCC)- Primary Essential hypertension ([facility]) Unspecified essential hypertension JEANNE (acute kidney injury) ([facility]) Leukocytosis, unspecified type Chronic respiratory failure with hypoxia ([facility]) Chronic bilateral low back pain without sciatica- Primary Vitamin D deficiency Chronic bilateral low back pain without sciatica- Primary Pneumonia due to infectious organism, unspecified laterality, unspecified part of lung- Primary Screening mammogram for breast cancer Chronic respiratory failure with hypoxia ([facility]) Pulmonary emphysema, unspecified emphysema type ([facility]/HCC) Essential hypertension ([facility]) Unspecified essential hypertension Morbid obesity with BMI of 40.0-44.9, adult ([facility]) Hospital discharge follow-up- Primary Other follow-up examination Chronic respiratory failure with hypoxia ([facility]/HCC) Severe persistent asthma without complication ([facility]/HCC) Severe persistent asthma with acute exacerbation ([facility]/HCC)- Primary Severe persistent asthma with exacerbation ([facility])- Primary Unspecified asthma, with exacerbation Hospital discharge follow-up- Primary Other follow-up examination Chronic respiratory failure with hypoxia ([facility])- Primary Hospital discharge follow-up Other follow-up examination Benign essential HTN ([facility]/HCC) Chronic heart failure with preserved ejection fraction ([facility]/HCC) Severe persistent asthma without complication (CMS/HCC) Moderate mixed hyperlipidemia not requiring statin therapy ([facility]) Morbid obesity with BMI of 40.0-44.9, adult ([facility]) Opioid use Chronic, continuous use of opioids Chronic back pain greater than 3 months duration Urge incontinence- Primary Morbid obesity with BMI of 40.0-44.9, adult (CMS/HCC) 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 Stage 3a chronic kidney disease (HCC) (CMS/HCC) Chronic respiratory failure with hypoxia (CMS/HCC) Moderate episode of recurrent major depressive disorder (CMS/HCC) Restless leg syndrome Restless legs syndrome (RLS) documented in this encounter [facility] HealthcareEvaluation note* Diagnosis Moderate persistent asthma [...] Morbid obesity with BMI of 40.0-44.9, adult ([facility]) Hospital discharge follow-up- Primary Other follow-up examination [...] Moderate mixed hyperlipidemia not requiring statin therapy ([facility]/HCC) Morbid obesity with BMI of 40.0-44.9, adult ([facility]) Opioid use Chronic, continuous use of opioids Chronic back pain greater than 3 months duration Urge incontinence- Primary Morbid obesity with BMI of 40.0-44.9, adult ([facility]) 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 Stage 3a chronic kidney disease (HCC) ([facility]) Chronic respiratory failure with hypoxia ([facility]) Chronic obstructive pulmonary disease with acute lower respiratory infection ([facility])- Primary Primary HSV infection of mouth documented in this encounter [facility] HealthcareEvaluation note* Diagnosis Moderate persistent asthma with exacerbation ([facility])- Primary Unspecified asthma, with exacerbation Non-recurrent acute suppurative otitis media of both ears without spontaneous rupture of tympanic membranes Colorectal cancer ([facility]) Malignant neoplasm of colon, unspecified site Chronic heart failure with preserved ejection fraction ([facility]) Pulmonary emphysema, unspecified emphysema type ([facility]) Moderate episode of recurrent major depressive disorder ([facility])- Primary Moderate persistent asthma with exacerbation ([facility]) Unspecified asthma, with exacerbation Medicare annual wellness visit, subsequent Severe persistent asthma with acute exacerbation ([facility])- Primary Hospital discharge follow-up Other follow-up examination Severe persistent asthma without complication (CMS/HCC)- Primary Essential hypertension ([facility]/HCC) Unspecified essential hypertension JEANNE (acute kidney injury) ([facility]) Leukocytosis, unspecified type Chronic respiratory failure with hypoxia (CMS/HCC) Chronic bilateral low back pain without sciatica- Primary Vitamin D deficiency Chronic bilateral low back pain without sciatica- Primary Pneumonia due to infectious organism, unspecified laterality, unspecified part of lung- Primary Screening mammogram for breast cancer Chronic respiratory failure with hypoxia (CMS/HCC) Pulmonary emphysema, unspecified emphysema type (CMS/HCC) Essential hypertension ([facility]/HCC) Unspecified essential hypertension Morbid obesity with BMI of 40.0-44.9, adult ([facility]) Hospital discharge follow-up- Primary Other follow-up examination Chronic respiratory failure with hypoxia (CMS/HCC) Severe persistent asthma without complication (CMS/HCC) Severe persistent asthma with acute exacerbation (CMS/HCC)- Primary Severe persistent asthma with exacerbation ([facility]/HCC)- Primary Unspecified asthma, with exacerbation Hospital discharge follow-up- Primary Other follow-up examination Chronic respiratory failure with hypoxia (CMS/HCC)- Primary Hospital discharge follow-up Other follow-up examination Benign essential HTN ([facility]/HCC) Chronic heart failure with preserved ejection fraction (CMS/HCC) Severe persistent asthma without complication ([facility]/HCC) Moderate mixed hyperlipidemia not requiring statin therapy ([facility]/HCC) Morbid obesity with BMI of 40.0-44.9, adult ([facility]) Opioid use Chronic, continuous use of opioids Chronic back pain greater than 3 months duration Urge incontinence- Primary Morbid obesity with BMI of 40.0-44.9, adult ([facility]) 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 Stage 3a chronic kidney disease (HCC) ([facility]) Chronic respiratory failure with hypoxia ([facility]) Chronic obstructive pulmonary disease with acute lower respiratory infection ([facility])- Primary Primary HSV infection of mouth Pulmonary emphysema, unspecified emphysema type ([facility])- Primary documented in this encounter [facility] HealthcareEvaluation note* Diagnosis Moderate persistent asthma with exacerbation ([facility])- Primary Unspecified asthma, with exacerbation Non-recurrent acute suppurative otitis media of both ears without spontaneous rupture of tympanic membranes Colorectal cancer ([facility]) Malignant neoplasm of colon, unspecified site Chronic heart failure with preserved ejection fraction ([facility]/HCC) Pulmonary emphysema, unspecified emphysema type ([facility]/HCC) Moderate episode of recurrent major depressive disorder ([facility])- Primary Moderate persistent asthma with exacerbation ([facility]) Unspecified asthma, with exacerbation Medicare annual wellness visit, subsequent Severe persistent asthma with acute exacerbation ([facility])- Primary Hospital discharge follow-up Other follow-up examination Severe persistent asthma without complication ([facility]/HCC)- Primary Essential hypertension ([facility]) Unspecified essential hypertension JEANNE (acute kidney injury) ([facility]) Leukocytosis, unspecified type Chronic respiratory failure with hypoxia ([facility]/HCC) Chronic bilateral low back pain without sciatica- Primary Vitamin D deficiency Chronic bilateral low back pain without sciatica- Primary Pneumonia due to infectious organism, unspecified laterality, unspecified part of lung- Primary Screening mammogram for breast cancer Chronic respiratory failure with hypoxia (CMS/HCC) Pulmonary emphysema, unspecified emphysema type ([facility]/HCC) Essential hypertension ([facility]/HCC) Unspecified essential hypertension Morbid obesity with BMI of 40.0-44.9, adult ([facility]) Hospital discharge follow-up- Primary Other follow-up examination Chronic respiratory failure with hypoxia ([facility]/HCC) Severe persistent asthma without complication (CMS/HCC) Severe persistent asthma with acute exacerbation (CMS/HCC)- Primary Severe persistent asthma with exacerbation ([facility]/HCC)- Primary Unspecified asthma, with exacerbation Hospital discharge follow-up- Primary Other follow-up examination Chronic respiratory failure with hypoxia (CMS/HCC)- Primary Hospital discharge follow-up Other follow-up examination Benign essential HTN ([facility]/HCC) Chronic heart failure with preserved ejection fraction (CMS/HCC) Severe persistent asthma without complication ([facility]/HCC) Moderate mixed hyperlipidemia not requiring statin therapy ([facility]/HCC) Morbid obesity with BMI of 40.0-44.9, adult ([facility]) Opioid use Chronic, continuous use of opioids Chronic back pain greater than 3 months duration Urge incontinence- Primary Morbid obesity with BMI of 40.0-44.9, adult ([facility]) 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 Stage 3a chronic kidney disease (HCC) ([facility]) Chronic respiratory failure with hypoxia ([facility]) Chronic obstructive pulmonary disease with acute lower respiratory infection ([facility])- Primary Primary HSV infection of mouth Pulmonary emphysema, unspecified emphysema type ([facility])- Primary Gastroesophageal reflux disease without esophagitis Esophageal reflux documented in this encounter [facility] HealthcareEvaluation note* Diagnosis Moderate persistent asthma with exacerbation ([facility]/HCC)- Primary Unspecified asthma, with exacerbation Non-recurrent acute suppurative otitis media of both ears without spontaneous rupture of tympanic membranes Colorectal cancer ([facility]) Malignant neoplasm of colon, unspecified site Chronic heart failure with preserved ejection fraction ([facility]) Pulmonary emphysema, unspecified emphysema type ([facility]/HCC) Moderate episode of recurrent major depressive disorder ([facility])- Primary Moderate persistent asthma with exacerbation ([facility]) Unspecified asthma, with exacerbation Medicare annual wellness visit, subsequent Severe persistent asthma with acute exacerbation ([facility]/HCC)- Primary Hospital discharge follow-up Other follow-up examination Severe persistent asthma without complication ([facility]/HCC)- Primary Essential hypertension ([facility]/HCC) Unspecified essential hypertension JEANNE (acute kidney injury) ([facility]) Leukocytosis, unspecified type Chronic respiratory failure with hypoxia ([facility]/HCC) Chronic bilateral low back pain without sciatica- Primary Vitamin D deficiency Chronic bilateral low back pain without sciatica- Primary Pneumonia due to infectious organism, unspecified laterality, unspecified part of lung- Primary Screening mammogram for breast cancer Chronic respiratory failure with hypoxia ([facility]/HCC) Pulmonary emphysema, unspecified emphysema type (CMS/HCC) Essential hypertension ([facility]/HCC) Unspecified essential hypertension Morbid obesity with BMI of 40.0-44.9, adult ([facility]) Hospital discharge follow-up- Primary Other follow-up examination Chronic respiratory failure with hypoxia (CMS/HCC) Severe persistent asthma without complication (CMS/HCC) Severe persistent asthma with acute exacerbation (CMS/HCC)- Primary Severe persistent asthma with exacerbation ([facility]/HCC)- Primary Unspecified asthma, with exacerbation Hospital discharge follow-up- Primary Other follow-up examination Chronic respiratory failure with hypoxia (CMS/HCC)- Primary Hospital discharge follow-up Other follow-up examination Benign essential HTN (CMS/HCC) Chronic heart failure with preserved ejection fraction (CMS/HCC) Severe persistent asthma without complication (CMS/HCC) Moderate mixed hyperlipidemia not requiring statin therapy ([facility]) Morbid obesity with BMI of 40.0-44.9, adult ([facility]) Opioid use Chronic, continuous use of opioids Chronic back pain greater than 3 months duration Urge incontinence- Primary Morbid obesity with BMI of 40.0-44.9, adult ([facility]) 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 Stage 3a chronic kidney disease (HCC) ([facility]) Chronic respiratory failure with hypoxia ([facility]) Chronic obstructive pulmonary disease with acute lower respiratory infection ([facility])- Primary Primary HSV infection of mouth Pulmonary emphysema, unspecified emphysema type ([facility]/HCC)- Primary Restless leg syndrome Restless legs syndrome (RLS) documented in this encounter [facility] HealthcareEvaluation note* Diagnosis Moderate persistent asthma with exacerbation ([facility])- Primary Unspecified asthma, with exacerbation Non-recurrent acute suppurative otitis media of both ears without spontaneous rupture of tympanic membranes Colorectal cancer ([facility]/HCC) Malignant neoplasm of colon, unspecified site Chronic heart failure with preserved ejection fraction (CMS/HCC) Pulmonary emphysema, unspecified emphysema type ([facility]/HCC) Moderate episode of recurrent major depressive disorder ([facility]/HCC)- Primary Moderate persistent asthma with exacerbation ([facility]/HCC) Unspecified asthma, with exacerbation Medicare annual wellness visit, subsequent Severe persistent asthma with acute exacerbation (CMS/HCC)- Primary Hospital discharge follow-up Other follow-up examination Severe persistent asthma without complication ([facility]/HCC)- Primary Essential hypertension (CMS/HCC) Unspecified essential hypertension [...] obesity with BMI of 40.0-44.9, adult (CMS/HCC) Hospital discharge follow-up- Primary Other follow-up examination [...] Morbid obesity with BMI of 40.0-44.9, adult ([facility]/HCC) 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 Stage 3a chronic kidney disease (HCC) (CMS/HCC) Chronic respiratory failure with hypoxia (CMS/HCC) Chronic obstructive pulmonary disease with acute lower respiratory infection (CMS/HCC)- Primary Primary HSV infection of mouth Pulmonary emphysema, unspecified emphysema type (CMS/HCC)- Primary Nevus lipomatosus cutaneus superficialis- Primary Lipoma of other skin and subcutaneous tissue Squamous cell carcinoma of skin of chest documented in this encounter [facility] HealthcareEvaluation note* Diagnosis Moderate persistent asthma with [...] subsequent Severe persistent asthma with acute exacerbation ([facility]/HCC)- Primary Hospital discharge follow-up Other follow-up examination Severe persistent asthma without complication (CMS/HCC)- Primary Essential hypertension (CMS/HCC) Unspecified essential hypertension JEANNE (acute kidney injury) ([facility]) Leukocytosis, unspecified type Chronic respiratory failure with hypoxia ([facility]/HCC) Chronic bilateral low back pain without sciatica- Primary Vitamin D deficiency Chronic bilateral low back pain without sciatica- Primary Pneumonia due to infectious organism, unspecified laterality, unspecified part of lung- Primary Screening mammogram for breast cancer Chronic respiratory failure with hypoxia (CMS/HCC) Pulmonary emphysema, unspecified emphysema type ([facility]/HCC) Essential hypertension ([facility]) Unspecified essential hypertension Morbid obesity with BMI of 40.0-44.9, adult ([facility]) Hospital discharge follow-up- Primary Other follow-up examination Chronic respiratory failure with hypoxia ([facility]/HCC) Severe persistent asthma without complication ([facility]/HCC) Severe persistent asthma with acute exacerbation ([facility]/HCC)- Primary Severe persistent asthma with exacerbation ([facility]/HCC)- Primary Unspecified asthma, with exacerbation Hospital discharge follow-up- Primary Other follow-up examination Chronic respiratory failure with hypoxia ([facility]/HCC)- Primary Hospital discharge follow-up Other follow-up examination Benign essential HTN ([facility]/HCC) Chronic heart failure with preserved ejection fraction (CMS/HCC) Severe persistent asthma without complication (CMS/HCC) Moderate mixed hyperlipidemia not requiring statin therapy ([facility]) Morbid obesity with BMI of 40.0-44.9, adult ([facility]) Opioid use Chronic, continuous use of opioids Chronic back pain greater than 3 months duration Urge incontinence- Primary Morbid obesity with BMI of 40.0-44.9, adult ([facility]) 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 Stage 3a chronic kidney disease (HCC) ([facility]/HCC) Chronic respiratory failure with hypoxia ([facility]/HCC) Chronic obstructive pulmonary disease with acute lower respiratory infection ([facility]/HCC)- Primary Primary HSV infection of mouth Pulmonary emphysema, unspecified emphysema type (CMS/HCC)- Primary Moderate episode of recurrent major depressive disorder ([facility]) Acute pain of right knee- Primary History of total right knee replacement documented in this encounter [facility]Evaluation note* Diagnosis Moderate persistent asthma with exacerbation (CMS/HCC)- Primary Unspecified asthma, with exacerbation Non-recurrent acute suppurative otitis media of both ears without spontaneous rupture of tympanic membranes Colorectal cancer ([facility]/HCC) Malignant neoplasm of colon, unspecified site Chronic heart failure with preserved ejection fraction (CMS/HCC) Pulmonary emphysema, unspecified emphysema type (CMS/HCC) Moderate episode of recurrent major depressive disorder ([facility]/HCC)- Primary Moderate persistent asthma with exacerbation ([facility]/HCC) Unspecified asthma, with exacerbation Medicare annual wellness visit, subsequent Severe persistent asthma with acute exacerbation ([facility]/HCC)- Primary Hospital discharge follow-up Other follow-up examination Severe persistent asthma without complication (CMS/HCC)- Primary Essential hypertension ([facility]/HCC) Unspecified essential hypertension JEANNE (acute kidney injury) ([facility]) Leukocytosis, unspecified type Chronic respiratory failure with hypoxia ([facility]/HCC) Chronic bilateral low back pain without sciatica- Primary Vitamin D deficiency Chronic bilateral low back pain without sciatica- Primary Pneumonia due to infectious organism, unspecified laterality, unspecified part of lung- Primary Screening mammogram for breast cancer Chronic respiratory failure with hypoxia (CMS/HCC) Pulmonary emphysema, unspecified emphysema type ([facility]/HCC) Essential hypertension ([facility]) Unspecified essential hypertension Morbid obesity with BMI of 40.0-44.9, adult ([facility]) Hospital discharge follow-up- Primary Other follow-up examination Chronic respiratory failure with hypoxia ([facility]/HCC) Severe persistent asthma without complication ([facility]/HCC) Severe persistent asthma with acute exacerbation ([facility]/HCC)- Primary Severe persistent asthma with exacerbation ([facility]/HCC)- Primary Unspecified asthma, with exacerbation Hospital discharge follow-up- Primary Other follow-up examination Chronic respiratory failure with hypoxia ([facility]/HCC)- Primary Hospital discharge follow-up Other follow-up examination Benign essential HTN ([facility]/HCC) Chronic heart failure with preserved ejection fraction ([facility]/HCC) Severe persistent asthma without complication ([facility]/HCC) Moderate mixed hyperlipidemia not requiring statin therapy ([facility]) Morbid obesity with BMI of 40.0-44.9, adult ([facility]) Opioid use Chronic, continuous use of opioids Chronic back pain greater than 3 months duration Urge incontinence- Primary Morbid obesity with BMI of 40.0-44.9, adult ([facility]) 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 Stage 3a chronic kidney disease (HCC) (CMS/HCC) Chronic respiratory failure with hypoxia (CMS/HCC) Chronic obstructive pulmonary disease with acute lower respiratory infection (CMS/HCC)- Primary Primary HSV infection of mouth Pulmonary emphysema, unspecified emphysema type (CMS/HCC)- Primary Acute pain of right knee- Primary History of total right knee replacement Right hip pain Pain in joint, pelvic region and thigh Arthritis of right hip documented in this encounter [facility] HealthcareEvaluation note* Diagnosis Moderate persistent asthma with [...] subsequent Severe persistent asthma with acute exacerbation ([facility]/HCC)- Primary Hospital discharge follow-up Other follow-up examination Severe persistent asthma without complication (CMS/HCC)- Primary Essential hypertension (CMS/HCC) Unspecified essential hypertension JEANNE (acute kidney injury) ([facility]) Leukocytosis, unspecified type Chronic respiratory failure with hypoxia (CMS/HCC) Chronic bilateral low back pain without sciatica- Primary Vitamin D deficiency Chronic bilateral low back pain without sciatica- Primary Pneumonia due to infectious organism, unspecified laterality, unspecified part of lung- Primary Screening mammogram for breast cancer Chronic respiratory failure with hypoxia (CMS/HCC) Pulmonary emphysema, unspecified emphysema type (CMS/HCC) Essential hypertension ([facility]/HCC) Unspecified essential hypertension Morbid obesity with BMI of 40.0-44.9, adult ([facility]) Hospital discharge follow-up- Primary Other follow-up examination Chronic respiratory failure with hypoxia (CMS/HCC) Severe persistent asthma without complication (CMS/HCC) Severe persistent asthma with acute exacerbation (CMS/HCC)- Primary Severe persistent asthma with exacerbation ([facility]/HCC)- Primary Unspecified asthma, with exacerbation Hospital discharge follow-up- Primary Other follow-up examination Chronic respiratory failure with hypoxia (CMS/HCC)- Primary Hospital discharge follow-up Other follow-up examination Benign essential HTN (CMS/HCC) Chronic heart failure with preserved ejection fraction (CMS/HCC) Severe persistent asthma without complication (CMS/HCC) Moderate mixed hyperlipidemia not requiring statin therapy (CMS/HCC) Morbid obesity with BMI of 40.0-44.9, adult ([facility]/HCC) Opioid use Chronic, continuous use of opioids Chronic back pain greater than 3 months duration Urge incontinence- Primary Morbid obesity with BMI of 40.0-44.9, adult ([facility]/HCC) 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 Stage 3a chronic kidney disease (HCC) (CMS/HCC) Chronic respiratory failure with hypoxia (CMS/HCC) Chronic obstructive pulmonary disease with acute lower respiratory infection (CMS/HCC)- Primary Primary HSV infection of mouth Pulmonary emphysema, unspecified emphysema type (CMS/HCC)- Primary Seborrheic keratosis- Primary History of SCC (squamous cell carcinoma) of skin Personal history of other malignant neoplasm of skin Lentigines documented in this encounter [facility]* Diagnosis Moderate episode of recurrent major depressive disorder (CMS/HCC)- Primary Moderate persistent asthma with exacerbation (CMS/HCC) Unspecified asthma, with exacerbation Medicare annual wellness visit, subsequent Severe persistent asthma with acute exacerbation ([facility]/HCC)- Primary Hospital discharge follow-up Other follow-up examination [...] Morbid obesity with BMI of 40.0-44.9, adult ([facility]) Hospital discharge follow-up- Primary Other follow-up examination Chronic respiratory failure with hypoxia (CMS/HCC) Severe persistent asthma without complication (CMS/HCC) Severe persistent asthma with acute exacerbation (CMS/HCC)- Primary Hospital discharge follow-up- Primary Other follow-up examination Chronic respiratory failure with hypoxia (CMS/HCC)- Primary Hospital discharge follow-up Other follow-up examination Benign essential HTN (CMS/HCC) Chronic heart failure with preserved ejection fraction (CMS/HCC) Severe persistent asthma without complication (CMS/HCC) Moderate mixed hyperlipidemia not requiring statin therapy (CMS/HCC) Morbid obesity with BMI of 40.0-44.9, adult ([facility]) Opioid use Chronic, continuous use of opioids Chronic back pain greater than 3 months duration Urge incontinence- Primary Morbid obesity with BMI of 40.0-44.9, adult ([facility]) 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 Stage 3a chronic kidney disease (HCC) ([facility]) Chronic respiratory failure with hypoxia ([facility]) Chronic obstructive pulmonary disease with acute lower respiratory infection ([facility])- Primary Primary HSV infection of mouth Pulmonary emphysema, unspecified emphysema type ([facility]/HCC)- Primary Flu-like symptoms- Primary Morbid (severe) obesity due to excess calories ([facility]) Body mass index (BMI) 40.0-44.9, adult ([facility]) Pulmonary emphysema, unspecified emphysema type ([facility]/HCC) Chronic respiratory failure with hypoxia ([facility]) Essential hypertension ([facility]) Unspecified essential hypertension documented in this encounter [facility] general Narrative - Reported* Type Description Date [...] IN 08/2019 Hospitalization History HIP REVISION 03/2020 [facility] Other History general Narrative - Reported* Type [...] Hospitalization History COVID X 2 WEEKS 04/2023 [facility] Other Hospital course Narrative No data available for this section [facility] Hospital Discharge instructions Additional Instructions DISCHARGE INSTRUCTIONS [...] if you have any problems. -Office number [phone] Work Phone: Hospital Discharge instructions No data available for this section [facility] Progress note No data available for this section [facility] [place] Advance Directives Advance Directive Response Recorded Date/ [...] and content) DATE CREATED AUTHOR 03/03/2022 [facility] DATE CREATED AUTHOR AUTHOR'S ORGANIZ ATION 04/17/2023 [facility] DATE CREATED AUTHOR AUTHOR'S ORGANIZ ATION 07/21/2024 [facility] DATE CREATED AUTHOR AUTHOR'S ORGANIZ ATION 10/18/2024 [facility] DATE CREATED AUTHOR AUTHOR'S ORGANIZ ATION 10/20/2024 [facility] DATE CREATED AUTHOR AUTHOR'S ORGANIZ ATION 10/21/2024 [facility] DATE CREATED AUTHOR AUTHOR'S ORGANIZ ATION 10/29/2024 [facility] DATE CREATED AUTHOR AUTHOR'S ORGANIZ ATION 11/18/2024 [facility] DATE CREATED AUTHOR AUTHOR'S ORGANIZ [...] Lesion Specialty Diagnoses / Procedures Referred By Contac t Referred To Contact Dermatology Diagnoses 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 Procedures MT OFFICE/OUTPATIENT [facility] HIGH MDM Aida Reese, TOE PUNCHER [address] [place] [address] Phone: tel: fax: Elena Martinez, DEVELOPMENTAL TRAINING COUNSELOR-CELLOPHANE CASTING MACHINE REPAIRER [address] [place] [address] Phone: tel: fax: Referral ID Status Reason Start Date Expiration Date V isits Requested Visits Authorized [id number] Closed Specialty Services Required 10/07/2024 04/05/2025 1 [...] March 14, 2024 End: March 14, 2024 Warehouse Record Clerk Relationship Specialty Start Date End Date Tapan Zazueta MD [address] [place] [phone] PCP - General Family Medicine 06/10/24 Ariella Mathis DO [address] [place] [address] Referring Physician Neurology 01/02/24 Aida Reese NP [address] [place] [address] Nurse Practitioner Family Medicine 06/10/24 Warehouse Record Clerk Relationship Specialty Start Date End Date Tapan Zazueta MD [address] [place] [phone] PCP - General Family Medicine 06/10/24 Ariella Mathis DO [address] [place] [address] Referring Physician Neurology 01/02/24 Aida Reese NP [address] [place] [address] Nurse Practitioner Family Medicine 06/10/24 Warehouse Record Clerk Relationship Specialty Start Date End Date Tapan Zazueta MD [address] [place] [address] PCP - General Family Medicine 06/10/24 Ariella Mathis DO [address] [place] [address] Referring Physician Neurology 01/02/24 Aida Reese NP [address] [place] [address] Nurse Practitioner Family Medicine 06/10/24 Warehouse Record Clerk Relationship Specialty Start Date End Date Tapan Zazueta MD [address] [place] [phone] PCP - General Family Medicine 06/10/24 Ariella Mathis DO [address] [place] [address] Referring Physician Neurology 01/02/24 Aida Reese NP [address] [place] [address] Nurse Practitioner Family Medicine 06/10/24 Warehouse Record Clerk Relationship Specialty Start Date End Date Tapan Zazueta MD [address] [place] [address] PCP - General Family Medicine 06/10/24 Ariella Mathis DO [address] [place] [address] Referring Physician Neurology 01/02/24 Aida Reese NP [address] [place] [phone] Nurse Practitioner Family Medicine 06/10/24 Team Status: Active Member Role Status Dates Aida Reese TOE PUNCHER-C Primary Care Provider Ac tive Team Status: [...] 2024 End: September 05, 2024 Aida Reese NP-C Primary Care Provider Ac tive Start: September 05, 2024 End: September 05, 2024 Warehouse Record Clerk Relationship Specialty Start Date End Date Tapan Zazueta MD [address] [place] [place] [address] PCP - General Family Medicine 06/10/24 Ariella Mathis DO [address] [place] [address] Referring Physician Neurology 01/02/24 Aida Reese NP [address] [place] [phone] Nurse Practitioner Family Medicine 06/10/24 Warehouse Record Clerk Relationship Specialty Start Date End Date Tapan Zazueta MD [address] [place] [phone] PCP - General Family Medicine 06/10/24 Ariella Mathis DO [address] [place] [address] Referring Physician Neurology 01/02/24 Aida Reese NP [address] [place] [address] Nurse Practitioner Family Medicine 06/10/24 Warehouse Record Clerk Relationship Specialty Start Date End Date Tapan Zazueta MD [address] [place] [phone] PCP - General Family Medicine 06/10/24 Ariella Mathis DO [address] [place] [address] Referring Physician Neurology 01/02/24 Aida Reese NP [address] [place] [address] Nurse Practitioner Family Medicine 06/10/24 Warehouse Record Clerk Relationship Specialty Start Date End Date Tapan Zazueta MD [address] [place] [address] PCP - General Family Medicine 06/10/24 Ariella Mathis DO [address] [place] [address] Referring Physician Neurology 01/02/24 Aida Reese NP [address] [place] [address] Nurse Practitioner Family Medicine 06/10/24 Warehouse Record Clerk Relationship Specialty Start Date End Date Tapan Zazueta MD [address] [place] [phone] PCP - General Family Medicine 06/10/24 Ariella Mathis DO [address] [place] [address] Referring Physician Neurology 01/02/24 Aida Reese NP [address] [place] [address] Nurse Practitioner Family Medicine 06/10/24 Warehouse Record Clerk Relationship Specialty Start Date End Date Tapan Zazueta MD [address] [place] [address] PCP - General Family Medicine 06/10/24 Ariella Mathis DO [address] [place] [address] Referring Physician Neurology 01/02/24 Aida Reese NP [address] [place] [address] Nurse Practitioner Family Medicine 06/10/24 Warehouse Record Clerk Relationship Specialty Start Date End Date Tapan Zazueta MD [address] [place] [address] PCP - General Family Medicine 06/10/24 Ariella Mathis DO [address] [place] [address] Referring Physician Neurology 01/02/24 Aida Reese NP [address] [place] [address] Nurse Practitioner Family Medicine 06/10/24 Warehouse Record Clerk Relationship Specialty Start Date End Date Tapan Zazueta MD [address] [place] [address] PCP - General Family Medicine 06/10/24 Ariella Mathis DO [address] [place] [address] Referring Physician Neurology 01/02/24 Aida Reese NP [address] [place] [address] Nurse Practitioner Family Medicine 06/10/24 Warehouse Record Clerk Relationship Specialty Start Date End Date Tapan Zazueta MD [address] [place] [address] PCP - General Family Medicine 06/10/24 Ariella Mathis DO [address] [place] [address] Referring Physician Neurology 01/02/24 Aida Reese NP [address] [place] [address] Nurse Practitioner Family Medicine 06/10/24 Warehouse Record Clerk Relationship Specialty Start Date End Date Tapan Zazueta MD [address] [place] [address] PCP - General Family Medicine 06/10/24 Ariella Mathis DO [address] [place] [address] Referring Physician Neurology 01/02/24 Aida Reese NP [address] [place] [address] Nurse Practitioner Family Medicine 06/10/24 Warehouse Record Clerk Relationship Specialty Start Date End Date Tapan Zazueta MD [address] [place] [phone] PCP - General Family Medicine 06/10/24 Ariella Mathis DO [address] [place] [address] Referring Physician Neurology 01/02/24 Aida Reese NP [address] [place] [address] Nurse Practitioner Family Medicine 06/10/24 Warehouse Record Clerk Relationship Specialty Start Date End Date Tapan Zazueta MD [address] [place] [address] PCP - General Family Medicine 06/10/24 Ariella Mathis DO [address] [place] [address] Referring Physician Neurology 01/02/24 Aida Reese NP [address] [place] [address] Nurse Practitioner Family Medicine 06/10/24 Warehouse Record Clerk Relationship Specialty Start Date End Date Tapan Zazueta MD [address] [place] [address] PCP - General Family Medicine 06/10/24 Arielal Mathis DO [address] [place] [address] Referring Physician Neurology 01/02/24 Aida Reese NP [address] [place] [address] Nurse Practitioner Family Medicine 06/10/24 Warehouse Record Clerk Relationship Specialty Start Date End Date Tapan Zazueta MD [address] [place] [phone] PCP - General Family Medicine 06/10/24 Ariella Mathis DO [address] [place] [address] Referring Physician Neurology 01/02/24 Aida Reese NP [address] [place] [address] Nurse Practitioner Family Medicine 06/10/24 Warehouse Record Clerk Relationship Specialty Start Date End Date Tapan Zazueta MD [address] [place] [address] PCP - General Family Medicine 06/10/24 Ariella Mathis DO [address] [place] [address] Referring Physician Neurology 01/02/24 Aida Reese NP [address] [place] [address] Nurse Practitioner Family Medicine 06/10/24 Team Status: Inactive Member Role Status Dates Allan Lacey MD Attending Provider Active Start: September 12, 2024 End: September 12, 2024 Aida Reese NP-C Primary Care Provider Ac tive Start: September 12, 2024 End: September 12, 2024 Warehouse Record Clerk Relationship Specialty Start Date End Date Tapan Zazueta MD [address] [place] [phone] PCP - General Family Medicine 06/10/24 Ariella Mathis DO [address] [place] [address] Referring Physician Neurology 01/02/24 Aida Reese NP [address] [place] [address] Nurse Practitioner Family Medicine 06/10/24 Warehouse Record Clerk Relationship Specialty Start Date End Date Tapan Zazueta MD [address] [place] [address] PCP - General Family Medicine 06/10/24 Ariella Mathis DO [address] [place] [address] Referring Physician Neurology 01/02/24 Aida Reese NP [address] [place] [address] Nurse Practitioner Family Medicine 06/10/24 Warehouse Record Clerk Relationship Specialty Start Date End Date Tapan Zazueta MD [address] [place] [address] PCP - General Family Medicine 06/10/24 Ariella Mathis DO [address] [place] [address] Referring Physician Neurology 01/02/24 Aida Reese NP [address] [place] [address] Nurse Practitioner Family Medicine 06/10/24 Warehouse Record Clerk Relationship Specialty Start Date End Date Tapan Zazueta MD [address] [place] [address] PCP - General Family Medicine 06/10/24 Ariella Mathis DO [address] [place] [address] Referring Physician Neurology 01/02/24 Aida Reese NP [address] [place] [address] Nurse Practitioner Family Medicine 06/10/24 Warehouse Record Clerk Relationship Specialty Start Date End Date Tapan Zazueta MD [address] [place] [address] PCP - General Family Medicine 06/10/24 Ariella Mathis DO [address] [place] [address] Referring Physician Neurology 01/02/24 Aida Reese NP [address] [place] [address] Nurse Practitioner Family Medicine 06/10/24 Warehouse Record Clerk Relationship Specialty Start Date End Date Tapan Zazueta MD [address] [place] [address] PCP - General Family Medicine 06/10/24 Ariella Mathis DO [address] [place], [place] [address] Referring Physician Neurology 01/02/24 Aida Reese NP [address] [place] [address] Nurse Practitioner Family Medicine 06/10/24 Warehouse Record Clerk Relationship Specialty Start Date End Date Tapan Zazueta MD [address] [place] [address] PCP - General Family Medicine 06/10/24 Ariella Mathis DO [address] [place] [address] Referring Physician Neurology 01/02/24 Aida Reese NP [address] [place] [phone] Nurse Practitioner Family Medicine 06/10/24 Goals (unrecognized [...] BE BASED ON THE PRIMARY CLINICAL RECORDS. [facility]. provides no warranty or guarantee of the accuracy or completeness of information in this document.
--- NOTE | 2025-01-03 07:43 | P.HP_ITS ---
HPI H&P: HPI History of Present Illness Chief complaint: Pneumonia COPD Exacerbation Narrative: 69 y o female with severe COPD/Asthma, chronic respiratory failure with hypoxia on 3 L O2 presented to ED with cough, nasal congestion, nausea, dry heaving, multiple episodes daily of loose watery diarrhea, increased cough with sputum production, and weakness. Patient also reports worsening SOB. She is on home oxygen always, has COPD and takes breathing treatments as needed. She resides at Home and it was difficult caring for herself at this time. She is very lethargic this morning, falling asleep during exam and questions. ER findings: WBC's 7.8, Hb 11.2, Cr 0.93, Mag 1.7, Trop normal and proBNP normal, Chest X-ray shows bilateral lower lobe densities with R>L. Per ER notes She was requiring 4L to maintain her saturations >90%. Flu/COVID/RSV testing were negative. Patient was started on Azithromycin and Rocephin for CAP with COPD Exacerbation. Opioid HPI Opioid Management Most Recent Pain and Opioid Data: Last Pain Scale 0 01/03/25 09:15 01/03/25 Last Pain Intensity 0 08/10/24 09:52 08/10/24 Last Pain Assessment 01/03/25 09:15 Last ORT Total Score 1 01/02/25 19:37 01/02/25 Last ORT Risk Category Low Risk 01/02/25 19:37 01/02/25 Review of Systems ROS Narrative ROS: a complete review of systems were reviewed with patient and are positive as below or listed in History of Chief Complaint. General: no fever, chills, night sweats Head: no headache, trauma, visual changes, nausea or vomiting Skin: no reported rashes, itching or sores Eyes: no blurriness of vision Ears: no reported hearing loss, vertigo, earache, or tinnitus Throat: no sore throat, hoarseness, swelling of neck, or tongue pain Heart: no chest pain Lungs: shortness of breath and cough GI: diarrhea and vomiting/nausea Urinary: no urinary urgency, frequency or pain Neuro: no numbness or tingling HEM: no bleeding issues or bruising ENDO: no thyroid problems Psych: no anxiety or depression [facility] Medical History (Updated 01/03/25 @ 09:17 by Magy Ross DO) Melanoma ?C43.9 - Malignant melanoma of skin, unspecified (ICD-10) Mediastinal lymphadenopathy ?R59.0 - Localized enlarged lymph nodes (ICD-10) Tracheobronchomalacia ?J39.8 - Other specified diseases of upper respiratory tract (ICD-10) Restrictive lung disease ?J98.4 - Other disorders of lung (ICD-10) CAD (coronary artery disease) ?I25.10 - Atherosclerotic heart disease of [place] coronary artery without angina pectoris (ICD-10) Chronic heart failure with preserved ejection fraction (HFpEF) ?I50.32 - Chronic diastolic (congestive) heart failure (ICD-10) Hypertension ?I10 - Essential (primary) hypertension (ICD-10) Acute exacerbation of COPD with asthma ?J44.1 - Chronic obstructive pulmonary disease with (acute) exacerbation (ICD-10) ?J45.901 - Unspecified asthma with (acute) exacerbation (ICD-10) Lumbar radiculopathy ?M54.16 - Radiculopathy, lumbar region (ICD-10) Encounter for long-term opiate analgesic use ?Z79.891 - medical terminologist (current) use of opiate analgesic (ICD-10) Failed back syndrome ?M96.1 - Postlaminectomy syndrome, not elsewhere classified (ICD-10) Acute exacerbation of chronic low back pain ?M54.50 - Low back pain, unspecified (ICD-10) ?G89.29 - Other chronic pain (ICD-10) Thoracic spondylosis ?M47.814 - Spondylosis without myelopathy or radiculopathy, thoracic region (ICD-10) Hypoxia ?R09.02 - Hypoxemia (ICD-10) URI (upper respiratory infection) ?J06.9 - Acute upper respiratory infection, unspecified (ICD-10) Orthostasis ?I95.1 - Orthostatic hypotension (ICD-10) Community acquired pneumonia ?J18.9 - Pneumonia, unspecified organism (ICD-10) Severe malnutrition ?E43 - Unspecified severe protein-calorie malnutrition (ICD-10) Acute exacerbation of chronic obstructive pulmonary disease (COPD) ?J44.1 - Chronic obstructive pulmonary disease with (acute) exacerbation (ICD-10) Severe persistent asthma with exacerbation ?J45.51 - Severe persistent asthma with (acute) exacerbation (ICD-10) Morbid obesity ?E66.01 - Morbid (severe) obesity due to excess calories (ICD-10) Other pulmonary collapse ?J98.19 - Other pulmonary collapse (ICD-10) 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 - Critical illness myopathy (ICD-10) Chronic respiratory failure with hypoxia ?J96.11 - Chronic respiratory failure with hypoxia (ICD-10) Bronchitis ?J40 - Bronchitis, not specified as acute or chronic (ICD-10) Acute exacerbation of chronic obstructive pulmonary disease ?J44.1 - Chronic obstructive pulmonary disease with (acute) exacerbation (ICD-10) Myofascial pain ?M79.18 - Myalgia, other site (ICD-10) Greater trochanteric bursitis ?M70.60 - Trochanteric bursitis, unspecified hip (ICD-10) Osteoarthritis of right hip ?M16.11 - Unilateral primary osteoarthritis, right hip (ICD-10) Lumbar spondylosis ?M47.816 - Spondylosis without myelopathy or radiculopathy, lumbar region (ICD-10) Lumbar postlaminectomy syndrome ?M96.1 - Postlaminectomy syndrome, not elsewhere classified (ICD-10) Lumbar stenosis with neurogenic claudication ?M48.062 - Spinal stenosis, lumbar region with neurogenic claudication (ICD- 10) Depression ?F32.A - Depression, unspecified (ICD-10) Chronic low back pain ?M54.50 - Low back pain, unspecified (ICD-10) ?G89.29 - Other chronic pain (ICD-10) Hypoxia ?R09.02 - Hypoxemia (ICD-10) Heart murmur ?R01.1 - Cardiac murmur, unspecified (ICD-10) Chronic obstructive pulmonary disease ?J44.9 - Chronic obstructive pulmonary disease, unspecified (ICD-10) Asthma ?J45.909 - Unspecified asthma, uncomplicated (ICD-10) Surgical History H/O cataract removal with insertion of prosthetic lens ?Z98.49 - Cataract extraction status, unspecified eye (ICD-10) ?Z96.1 - Presence of intraocular lens (ICD-10) Status post hip surgery ?Z98.890 - Other specified postprocedural states (ICD-10) H/O foot surgery ?Z98.890 - Other specified postprocedural states (ICD-10) H/O tubal ligation ?Z98.51 - Tubal ligation status (ICD-10) History of lumbar fusion ?Z98.1 - Arthrodesis status (ICD-10) Family History Mother Family history of CHF (congestive heart failure) Family history of hypertension Father Family history of hypertension Family history of myocardial infarction Social History Within the past year, how often did you have a drink containing alcohol: never Score interpretation: A score less than 3 is consistent with normal alcohol consumption. Smoking status: Never smoker Non-prescribed substance use: denies use Previous occupational history: retired Highest level of school completed/degree received: Associate degree: occupational, technical, vocational program Are you now , , , , never or living with a partner: In a typical week, how many times do you talk on the telephone with family, friends, or neighbors: 3 or more times per week How often do you get together with friends or relatives: 3 or more times per week How often do you attend jehovah's witness or catholic services: 4 or more times per year Do you belong to any clubs or organizations such as jehovah's witness groups unions, [employer] or athletic groups, or school groups: no Total score: 2 Score interpretation: A score of greater than or equal to 2 indicates the lowest level of social isolation. Little interest or pleasure in doing things: not at all Feeling down, depressed, or hopeless: not at all Feel stressed/tense/nervous/anxious/difficulty sleeping: not at all Do you think of yourself as: straight/heterosexual Gender Identity: female Meds Home Medications and Allergies Home Medications ?Medication ?Instructions ?Recorded ?Confirmed ?Type fluticasone fur. 200 mcg-umeclid 1 inh inhalation Q24H COPD 04/10/23 01/02/25 History 62.5 mcg-vilant 25 mcg inhalat.powder (Trelegy Ellipta) magnesium oxide 400 mg (241.3 mg 400 mg PO DAILY 04/10/23 01/02/25 History magnesium) tablet omeprazole 20 mg capsule,delayed 20 mg PO BID 04/10/23 01/02/25 History release montelukast 10 mg tablet 10 mg PO DAILY 09/14/23 01/02/25 History pramipexole 0.25 mg tablet 0.25 mg PO QPM PRN restless leg(s) 09/14/23 01/02/25 History (Mirapex) paroxetine HCl 30 mg tablet 30 mg PO QDAY 11/25/23 01/02/25 History pregabalin 75 mg capsule 75 mg PO BID 11/25/23 01/02/25 History solifenacin 10 mg tablet 10 mg PO QDAY 11/25/23 01/02/25 History trazodone 100 mg tablet 100 mg PO .qhs 11/25/23 01/02/25 History baclofen 10 mg tablet 10 mg PO Q8H 02/03/24 01/02/25 History albuterol sulfate 2.5 mg/3 mL 2.5 mg inhalation QID shortness of 06/06/24 01/02/25 History (0.083 %) solution for nebulization breath or wheezing sodium chloride 0.9 % for 2.5 ml inhalation Q8H PRN 06/28/24 01/02/25 History nebulization shortness of breath or wheezing latanoprost 0.005 % eye drops 1 drp ophthalmic (eye) .HS 08/09/24 01/02/25 History Allergies Allergy/AdvReac Type Severity Reaction Status Date / Time No Known Drug Allergies Allergy Verified 01/02/25 15:47 Exam Narrative Exam Narrative: General: Patient is alert, and oriented to person, place and time with normal affect just appears very lethargic during exam, falls asleep mid answer Skin: no visible rashes, or ulcers Head: atraumatic, acephalic Eyes: PERRLA, no nystagmus present, conjunctiva clear, no scleral icterus Ears: normal gross auditory acuity Neck: no masses palpated Heart: Normal rate and rhythm, no murmurs/rubs/gallops Lungs: audible wheezes, crackles and diminished breath sounds all lung gr[place] Abdomen: Normal audible bowel sounds, no distension, No palpable masses, no organomegaly, no rebound/guarding/ or rigidity Musculoskeletal: no swelling bilateral lower extremities Neuro: CN II-X grossly intact Constitutional Vital Signs, click to edit/add: Last Vital Signs Temp 97.7 F 01/03/25 07:30 Pulse 69 01/03/25 07:30 Resp 18 01/03/25 07:30 BP 156/81 H 01/03/25 07:30 Pulse Ox 93 L 01/03/25 07:30 O2 Del Method Nasal Cannula 01/03/25 07:30 O2 Flow Rate 4 01/03/25 07:30 Results Labs Labs: Short CBC 01/02/25 01/03/25 Range/Units 16:00 05:08 WBC 13.0 H 7.8 (4.0-11.0) 10^3/uL Hgb 12.3 11.2 L (12.0-16.0) g/dL Hct 37.5 35.3 L (36.0-48.0) % Plt Count 250 238 (150-450) 10^3/uL BMP 01/02/25 01/03/25 16:30 05:08 Sodium 140 141 Potassium 3.2 L 4.0 Chloride 103 105 Carbon Dioxide 32.2 H 28.9 BUN 8.0 7.0 Creatinine 1.10 H 0.93 Glucose 109 H 198 H Calcium 8.9 8.5 Liver Function 01/02/25 01/03/25 Range/Units 16:30 05:08 Total Bilirubin 0.4 0.2 (0.2-1.0) mg/dL AST 10 L 10 L (15-37) U/L ALT 16 16 (14-59) U/L Alkaline Phosphatase 109 93 (46-116) U/L Albumin 2.6 L 2.1 L (3.4-5.0) g/dL Assessment and Plan Assessment and Plan (1) Asthma exacerbation in COPD: Assessment and Plan: Continue Iv Solumedrol, scheduled Duonebs, alubterol as needed and pulmicort nebs; Continue with Azithromycin and Rocephin, Viral testing negative (2) RLL pneumonia: Assessment and Plan: see #1 Qualifiers: Pneumonia type: due to unspecified organism Qualified Code(s): J18.9 - Pneumonia, unspecified organism (3) Acute and chronic respiratory failure: Assessment and Plan: Patient on baseline 3L at home, requiring 4L now. Troponin negative, proBNP negative, most likely secondary to pneumonia. continue current treatment. Qualifiers: Respiratory failure complication: hypoxia Qualified Code(s): J96.21 - Acute and chronic respiratory failure with hypoxia (4) Hypomagnesemia: Assessment and Plan: Continue oral replacement was 1.7 (5) Acute hypokalemia: Assessment and Plan: continue oral replacement up to 4.0 from 3.2 (6) Osteoarthritis of right hip: Assessment and Plan: continue lyrica and baclofen Qualifiers: Osteoarthritis type: primary Qualified Code(s): M16.11 - Unilateral primary osteoarthritis, right hip (7) Depression: Assessment and Plan: continue paxil and trazodine Qualifiers: Active/Remission status: in full remission Depression Type: major depressive disorder Major depression recurrence: recurrent Qualified Code(s): F33.42 - Major depressive disorder, recurrent, in full remission (8) Chronic heart failure with preserved ejection fraction (HFpEF): Assessment and Plan: ProBNP normal range, no signs of fluid overload or pulmonary edema. (9) Weakness: Assessment and Plan: most likely from acute illnesses above. PT/OT evaluations Plan Patient is a DNRCCA continue Heparin for DVT prophylaxis Patient inpatient status and is expected to cross 2 midnights
[2025-01-03] MEDS: PREGABALIN 75 MG CAPSULE PO ×2 (08:33→21:38)
[2025-01-03] MEDS: HEPARIN SODIUM (PORCINE) 5,000 UNIT/ML VIAL 5000 UNIT SUBQ ×2 (08:34→21:37)
[2025-01-03] MEDS: PAROXETINE HCL 20 MG TABLET 30 MG PO (08:34)
[2025-01-03] MEDS: MONTELUKAST SODIUM 10 MG TABLET PO (08:34)
[2025-01-03] MEDS: OMEPRAZOLE 20 MG CAPSULE.DR PO ×2 (08:34→15:12)
[2025-01-03] MEDS: POTASSIUM CHLORIDE 10 MEQ ER TABLET 20 MEQ PO ×2 (08:34→21:37)
[2025-01-03] MEDS: MAGNESIUM OXIDE 400 MG TABLET PO (08:36)
[2025-01-03] MEDS: SOLIFENACIN SUCCINATE 10 MG TABLET PO (08:36)
--- NOTE | 2025-01-03 09:21 | CM.NOTE ---
Rounds made with Dr. Ross, pt very lethargic and having difficulty staying awake to answer questions. No discharge today. Dr. Ross will change pt to inpatient status.
--- OUTSIDE RECORDS SUMMARY | 2025-01-03 09:32 | XMS_ITS | CCD ---
Author Organization [facility] Inform ion [facility] Care Team Providers Care Italian Teacher Name Role Phone Steph Collier Attending Provider Unavailable Chantel Rainey Primary Care Provider Unavailabl e JoanaHerberth Attending Provider Unavailable Unavailable Primary Care Provider Unavailabl e UNKNOWN, PHYSICIAN Referring Unavailable JOO LINN Attending Unavailable JOO LINN Admitting Unavailable UNKNOWN, PHYSICIAN Primary Care Unavailable Rena Hurd Unavailable Joana, Herberth Unavailable Gato Domingo Unavailable Steph Collier Attending Provider [phone] MD Gato Domingo Attending Provider [phone] MD Nicky Ohara Primary Care Provider Gilma [...] e FAWANASTASIA, MESSER H Primary Care Unavailable TROY, DR BRITTANY Elizondo Consulting Unavailable DARWIN, DR [...] Unavailable Tapan Zazueta MD Primary Care Provider [phone] Katherine Reese NPtany Unavailable [phone] MD Allan Lacey Attending Provider KELI [facility] Primary Care Provid er MAG BLOUNT Attending Unavailable MAG BLOUNT Attending Unavailable AIDA REESE Referring Unavailabl e MAG BLOUNT Attending Unavailable MAG BLOUNT Admitting Unavailable TAPAN ZAZUETA Primary Care Physician HETAL CHURCH Attending Unavailable STEFANIEBALLDebby, EMELIA Attending Unavailable OMBALLI, EMELIA Attending Unavailable SAMOB DAN Referring Unavailable OMBALLI, EMELIA Attending Unavailable OMBALLI, EMELIA Referring Unavailable RADHAGHULAM Referring Unavailable OMBALLI, EMELIA Admitting Unavailable OMBALLI, EMELIA Attending Unavailable OMQUINCY, EMELIA Referring Unavailable Deepthi DRAPER, Allan Boone Attending Provider Mary Ann ELECTRONIC TECHNOLOGIST-C, Aida N Primary Care Provid er Allan Lacey Attending Unavailable [facility] Primary Care Unavaila ble Allan Lacey Admitting Unavailable Allan Lacey Attending Unavailable [facility] Primary Care Unavaila ble Allan Lacey [...] Unavailable ReeseAida de los santos NP Unavailable Unavailable Unavailable Unavailable Allergies Allergy Classification Reported Allergen(s) Allergy Type Date of Onset Reaction(s) Facility (20 sources) fentaNYL; Translations: [fentaNYL] Drug Allergy 07-07-20 17 Hallucinations (finding) [facility] (1 source) linezolid; Translations: [LINEZOLID] Drug Allergy 03-17-20 20 [facility] Repository (20 sources) Vancomycin; Translations: [VANCOMYCIN] Drug Allergy 03-17-20 Unknown [facility] Repository (14 sources) DENIES METAL SENSITITIVITY Propensity to adverse reactions 03-14-20 24 Unknown, Unknown Reaction [facility] Medications Current Medications Medication Drug Class(es) [...] 14, 2024 12:00am Start: 12-08-2022 End: 03-14-2024 Lruspvjmged-Kqumjqqjn-Coteac er (Trelegy Ellipta) 200-62.5-25 mcg blister with device Discontinued 1 INH INHALATION As Directed December 08, 2022 12:00am March 14, 2024 9:40am Start: 12-08-2022 End: 03-14-2024 Nbivnjnvkga-Lsvvtzecn-Csuwoa er (Trelegy Ellipta) 200-62.5-25 mcg blister with [...] Start: 03-14-2024 take 1 capsule by mo [facility] twice daily Omeprazole 20 mg capsule,delayed release(DR/EC) Active 20 MG PO Twice daily March 13, 2024 11:00pm Start: 07-07-2017 End: 03-14-2024 take 1 tablet by mouth once daily Omeprazole 20 mg Tablet,Delayed Release (Dr/Ec) Discontinued 20 MG PO Daily July 06, 2017 11:00pm March 14, 2024 9:41am take 1 capsule by [facility] every twelve hours Omeprazole 20 MG 1 CAPSULE Orally TWICE A DAY Active take 1 capsule by mo [facility] once daily Omeprazole 20 MG 1 [...] 1 puff(s) by inhalation twice daily Ipratropium [place] (Atrovent Hfa) 17 mcg/actuation Hfa Aerosol Inhaler [...] (COVID-19) RNA KAYLEE+probe Ql (Unsp spec) Negative [facility] No Panel Informationon 01-02 FLU A Negative [facility] FLU B Negative [facility] Interpretation and review of laboratory results Normal [facility] XR Hip - right 3 [facility] Result: AP and Lateral right hip No acute fracture Mild SI joint arthritic changes Pt has severe arthritis to right hip joint with subchondral cyst and sclerosis to femoral head and acetabulum. Stable hardware left hip on AP view Impression: Severe right hip arthritis. [facility] Radiology Study observation (narrative) [facility] XR Knee - right 1 or [...] Impression: Unremarkable right total knee arthroplasty [facility] Radiology Study observation (narrative) [facility] No Panel Informationon 12-13 Complexity: simple Destruction method: cryotherapy Informed consent: discussed and consent obtained Informed consent comment: The risks of the procedure were discussed, including, but not limited to risks of scarring, darker or site surveyor pigmentary changes, recurrence, infection, and incomplete removal [...] or tenderness. Additional details: Previous accession number: [id number] [facility] No Panel InformationOrdered By: Pat Mcfarland on 12-13-2024 [facility] Work Phone: Abstracton 10-24-2024 Abstract [id number] Nell Champion chioma Fan 1955 F Date Provider Department Center 10/24/2024 Nicholas-EMELIA YOO ONC DCC Family History Problem Relation Age of Onset Heart failure Mother Heart disease Father Family Status - Relation Status Age at Mother Father Normal [facility] C Urineon 10-18-2024 Bacteria identified Cx Nom [...] Locations R1: This test was performed at: [facility], [address] [place] [address], [phone]- , , Normal [facility] Comment on above: Performed By: #### [id number] #### [facility] [address] [place] [address] Ambulatory Visit Summaryon 1 12-16-2023 Ambulatory Visit [...] MICHAUD, MAG Hester Where: [facility] [address] [place] [address]- Medications What How Much When Instructions Unchanged [...] you for choosing us for your care. [facility] No Panel Informationon 10-11 Type of biopsy: [...] taken Amount of lidocaine used: 0.5 cc [employer] [facility] 36on 09-20-2024 36 Faxed to [facility] Ticker put in for Nov 2024 for patient to be scheduled with Dr. Church. [facility] 36on 09-12-2024 36 Patient called requesting clearance prior to cataract surgery. You saw her in May, and she had an echo shortly after (05/28/24 in online media director). Please advise. Thanks. [facility] EPITHELIAL CELLSon 4 Epithelial cells LM Ql (Urine sed) Epithelial Cells Few [facility] No Panel Informationon 08-[address] [facility] 1on 08-13-2024 RESULT 1 Result 1 Moderate budding yeast present. [facility] RESULT 2on 08-13-2024 RESULT 2 Result 2 Few gram positive cocci [facility] RESULT 3on 08-13-2024 RESULT 3 Result 3 ELECTRONIC TECHNOLOGIST [facility] RESULT 4on 08-13-2024 RESULT 4 Result 4 ELECTRONIC TECHNOLOGIST [facility] WHITE BLOOD CELLSon 08-13-20 24 WHITE BLOOD CELLS White Blood Cells [facility] WHITE BLOOD CELLS Few [facility] ALL CBC WITH AUTO DIFFon BASOPHILS ABSOLUTE AUTO 0.1 [facility] Basophils/100 WBC (Bld) 0.5 % 0.2 - 2.0 % [facility] Eosinophils/100 WBC (Bld) 1.5 % 0.9 - 7.0 % [facility] Erythrocyte distribution width (RBC) [Ratio] 13.0 % 11.0 - 15.0 % [facility] Hematocrit (Bld) [Volume fraction] 39.0 % 36.0 - 48.0 % [facility] Hemoglobin (Bld) [Mass/Vol] 12.2 g/dL 12.0 - 16.0 g/dL [facility] IMMATURE GRANULOCYTES ABS AUTO 0.22 High [facility] Immature granulocytes/100 WBC (Bld) 2.4 % High 0.0 - 0.5 % [facility] Interpretation and review of laboratory results Abnormal [facility] LYMPHOCYTES ABSOLUTE AUTO 1.6 [facility] Lymphocytes/100 WBC (Bld) 17.2 % Low 20.5 - 60.0 % [facility] MCH (RBC) [Entitic mass] 29.7 pg 26.7 - 34.0 pg [facility] MCHC (RBC) [Mass/Vol] 31.3 g/dL 29.9 - 35.2 g/dL [facility] MCV (RBC) [Entitic vol] 94.9 fL 81.0 - 99.0 fL [facility] MONOCYTES ABSOLUTE AUTO 0.8 [facility] Monocytes/100 WBC (Bld) 8.3 % 1.7 - 12.0 % [facility] NEUTROPHILS ABSOLUTE AUTO 6.4 [facility] Neutrophils/100 WBC (Bld) 70.1 % 43.0 - 75.0 % [facility] Platelet mean volume (Bld) [Entitic vol] 8.8 fL Low 9.5 - 13.5 fL [facility] TB EO # 0.1 [facility] TBH PLT 266 [facility] TBH RBC 4.11 Low [facility] TB WBC 9.1 [facility] Telemedicineon 07-11-2024 Telemedicine [id number] Nell Champion 1955 F Date Provider Department Center 07/11/2024 383-EMELIA YOO ONC DCC Family History Problem Relation Age of Onset Heart failure Mother Heart disease Father Family Status - Relation Status Age at Mother Father Level of Service:48524 CT PHYS/QHP TELEPHONE EVALUATION 21-30 MIN () Reason for Visit and Comments: Telehealth Phone Visit [872] - Tracheobronchomalacia follow up per Dr Canseco. [facility] HPon 07-02-2024 HP H&P reviewed. The patient [...] PSYCH: appropriate mood, affect, and judgement. Normal [facility] NURSNOTEon 07-02-2024 [facility] Matthew Vargas May resume a Regular Diet and home medications. Normal [facility] NURSNOTE Bronchoscopy Finding s: Tracheobronchomalacia Normal [facility] Telephoneon 06-27-2024 Telephone [id number] Nell Champion 1955 F Date Provider Department Center 06/27/2024 Catina-SOURAV ESCOBAR ONC [facility] Family History Problem Relation Age of Onset Heart failure Mother Heart disease Father Family Status - Relation Status Age at Mother Father Normal [facility] Prep for Procedureon 06-26- 024 Prep for Procedure [id number] Nell Champion 1955 F Date Provider Department Center 06/26/2024 EMELIA MORALES [facility] Family History Problem Relation Age of Onset Heart failure Mother Heart disease Father Family Status - Relation Status Age at Mother Father Normal [facility] HPon 06-25-2024 HP ---- -------- Attestation signed [...] Age: 68 y.o. : 1955 Account No.: [id number] Referring physician: Dr. Bo Mcclain Chief complaint: Recurreny pneumonia HPI Diana Champion is a 68 y.o. female with PMHx of reportedly COPD, chronic hypoxic respiratory failure on 2L home O2 who is presenting to clinic as a new patient after being referred by Dr. Bo Baker of [facility]. 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 Her family history is positive for COPD [...] Past Medical History: Diagnosis Date Asthma Cancer ([facility]) COPD (chronic obstructive pulmonary disease) ([facility]) Coronary artery disease GERD (gastroesophageal reflux [...] mouth every other day. Yes Historical Provider, vhwuedvogsn-xfcsnavvx-ls lanter 100-62.5-25 mcg blister with device Yes [...] mEq ER ta (more content not included)... [facility] Telemedicineon 06-25-2024 Telemedicine [id number] Nell Champion 1955 F Date Provider Department Center 06/25/2024 Nicholas-EMELIA YOO [facility] ONC DCC Family History Problem Relation Age of Onset Heart failure Mother Heart disease Father Family Status - Relation Status Age at Mother Father Level of Service:01268 CT PHYS/QHP TELEPHONE EVALUATION 21-30 MIN () Reason for Visit and Comments: New Patient [632] - ELECTRONIC TECHNOLOGIST REFERRED BY BO 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 CT DONE 04-11-24 AND 06-07-24 AT [facility]. RECORDS SCANNED INTO MEDIA. FILMS REQUESTED- requested 3 times and [employer] IS DOWN. Could not get films. Normal [facility] Office Visiton 05-13-2024 Follow-up visit [id number] Nell Champion 1955 F Date Provider Department Center 05/13/2024 271-HETAL CHURCH RAINA CARD Blair Baker Family History Problem Relation Age of Onset Heart failure Mother Heart disease Father Family Status - Relation Status Age at Mother Father Level of Service:95559 CT OFFICE/OUTPATIENT ESTABLISHED MOD MDM 30 MIN Normal [facility] Erythrocyte distribution wid th Auto (RBC) [Ratio]on 03-06-2024 Erythrocyte distribution width (RBC) [Ratio] 13.2 % 11.0-15.0 [facility] Estimated glomerular filtrat ion rate (GFR) non- Americanon 03-06-2024 GFR/1.73 sq M.predicted among non-blacks MDRD (S/P/Bld) [Vol rate/Area] 57 mL/min/{1.73_m2} >=60 [facility] Hematocrit Auto (Bld) [Volum e fraction]on 03-06-2024 Hematocrit (Bld) [Volume fraction] 38.7 % 36.0-48.0 [facility] Hemoglobin [Mass/volume] in Bloodon 03-06-2024 Hemoglobin (Bld) [Mass/Vol] 12.2 g/dL 12.0-16.0 [facility] Laboratory - Chemistry and C hemistry - challengeon 03-06-2024 Albumin [Mass/Vol] 3.0 g/dL 3.4-5.0 [facility] Calcium [Mass/Vol] 8.8 mg/dL 8.5-10.1 [facility] Chloride [Moles/Vol] 104 mmol/L 98-107 [facility] CO2 [Moles/Vol] 32.2 mmol/L 21.0-32.0 [facility] Creatinine [Mass/Vol] 0.97 mg/dL 0.55-1.02 [facility] GFR/1.73 sq M.predicted MDRD (S/P/Bld) [Vol rate/Area] mL/min/{1.73_m2} >=60 [facility] Glucose [Mass/Vol] 67 mg/dL 74-106 [facility] Magnesium [Mass/Vol] 1.9 mg/dL 1.8-2.4 [facility] Potassium [Moles/Vol] 3.4 mmol/L 3.5-5.1 [facility] Sodium [Moles/Vol] 143 mmol/L 136-145 [facility] Urate [Mass/Vol] 5.0 mg/dL 2.6-6.0 [facility] Urea nitrogen [Mass/Vol] 16.0 mg/dL 7.0-18.0 [facility] Urea nitrogen/Creatinine [Mass ratio] 16.5 mg/mg [facility] Leukocytes [#/volume] correc melanie for nucleated erythrocytes in Blood by Automated counon 03-06-2024 WBC corrected for nucl RBC Auto (Bld) [#/Vol] 8.1 10 3/uL 4.0-11.0 [facility] MCH Auto (RBC) [Entitic mass ]on 03-06-2024 MCH (RBC) [Entitic mass] 30.4 pg 26.7-34.0 [facility] MCHC Auto (RBC) [Mass/Vol]on 03-06-2024 MCHC (RBC) [Mass/Vol] 31.5 g/dL 29.9-35.2 [facility] MCV Auto (RBC) [Entitic vol] on 03-06-2024 MCV (RBC) [Entitic vol] 96.5 fL 81.0-99.0 [facility] No Panel Informationon 03-06 Urine Random Creatinine 63.27 mg/dL 20.00-300.00 [facility] Urine Random Total Protein <6.0 mg/dL <=11.9 [facility] 25-Hydroxy Vitamin D Total 37.1 ng/mL [facility] Comment on above: <20 ng/mL Vit D defi cient20-<30 ng/mL Vit D oyvabbizqobx72-393 ng/mL Vit D sufficient>100 ng/mL Potential Toxicity Parathyroid Hormone (Intact) 36 pg/mL 15-65 [facility] Comment on above: Performed at: [address] [id number] Director: Raphael Marrero PhD, Phone: [phone] Phosphorus Level 3.2 mg/dL 2.6-4.7 [facility] Platelet mean volume Auto (B ld) [Entitic vol]on 03-06-2024 Platelet mean volume (Bld) [Entitic vol] 9.1 fL 9.5-13.5 [facility] Platelets Auto (Bld) [#/Vol] on 03-06-2024 Platelets (Bld) [#/Vol] 247 10 3/uL 150-450 [facility] RBC Auto (Bld) [#/Vol]on RBC (Bld) [#/Vol] 4.01 10 6/uL 4.20-5.40 [facility] Serum or plasma anion gap de terminationon 03-06-2024 Anion gap [Moles/Vol] 10.2 mmol/L [facility] SYMPTOMATIC COVID-19 ANTIGEN on 04-04-2023 EUA Statement SEE BELOW Normal [facility] Comment on above: [...] sooner. Performed By: #### C VDAGS #### [facility] [address] [place] [address] Shayne Roldan SARS-CoV-2 (COVID-19) RNA KAYLEE+probe Ql (Unsp spec) Positive Abnormal NEGATIVE [facility] Comment on above: Performed By: #### C VDAGS #### [facility] [address] [place], [place] [id number] Dr. Shayne Roldan XR LSPINE 2_3 VIEWSon [...] STEPH GRANADOS Date: 2023-03-24 12:52 Normal [facility] PTH INTACTon 02-27-2023 PTH, Intact 87 pg/mL Critically high 15-65 [facility] Comment on above: Performed By: #### P THINT #### [facility] [address] [place] [address] Dr. Shayne Roldan HEMOGRAM AND PLATELon 2022 Hematocrit (Bld) [Volume fraction] 44.4 % Normal 36.0-48.0 [facility] Comment on above: Performed By: #### H H #### [facility] [address] [place] [address] Dr. Shayne Roldan Hemoglobin (Bld) [Mass/Vol] 14.5 g/dL Normal 12.0-16.0 [facility] Comment on above: Performed By: #### H H #### [facility] [address] [place] [address] Dr. Shayne Roldan MCH (RBC) [Entitic mass] 30.3 pg Normal 26.7-34.0 [facility] Comment on above: Performed By: #### H H #### [facility] [address] [place] [address] Dr. Shayne Roldan MCHC (RBC) [Mass/Vol] 32.7 g/dL Normal 29.9-35.2 [facility] Comment on above: Performed By: #### H H #### [facility] [address] [address] [address] Shayne Roldan MCV (RBC) [Entitic vol] 92.9 fL Normal 81.0-99.0 [facility] Comment on above: Performed By: #### H H #### [facility] [address] [address] [address] Shayne Roldan PLT 367 103/ul Normal 150-450 [facility] Comment on above: Performed By: #### H H #### [facility] [address] [address] [address] Shayne Roldan RBC 4.78 106/ul Normal 4.20-5.40 [facility] Comment on above: Performed By: #### H H #### [facility] [address] [place] [address] Dr. Shayne Roldan WBC 9.9 103/ul Normal 4.0-11.0 [facility] Comment on above: Performed By: #### H H #### [facility] [address] [place] [address] Dr. hSayne Roldan MAGNESIUMon 02-25-2023 Magnesium [Mass/Vol] 1.6 mg/dL Critically low 1.8-2.4 [facility] Comment on above: Performed By: #### M G, RENAL, URIC #### [facility] [address] [place] [address] Dr. Shayne Roldan RENAL FUNCTION PANELon 02-25 Albumin [Mass/Vol] 3.4 g/dL Normal 3.4-5.0 [facility] Comment on above: Performed By: #### M G, RENAL, URIC #### [facility] [address] [address] [address] Shayne Roldan Calcium [Mass/Vol] 8.7 mg/dL Normal 8.5-10.1 [facility] Comment on above: Performed By: #### M G, RENAL, URIC #### [facility] [address] [place] [address] Dr. Shayne Roldan Chloride [Moles/Vol] 104 mmol/L Normal 98-107 [facility] Comment on above: Performed By: #### M G, RENAL, URIC #### [facility] [address] [address] [address] Shayne Roldan CO2 [Moles/Vol] 25.9 mmol/L Normal 21.0-32.[address] [facility] Comment on above: Performed By: #### M G, RENAL, URIC #### [facility] [address] [place] [address] Dr. Shayne Roldan Creatinine [Mass/Vol] 1.19 mg/dL Critically high 0.55-1.02 [facility] Comment on above: Performed By: #### M G, RENAL, URIC #### [facility] [address] [place] [address] Dr. Shayne Roldan EGFR-AF HAITIAN 55 mL/min/1.73m2 Critically low >=60 [facility] Comment on above: Performed By: #### M G, RENAL, URIC #### [facility] [address] [place] [address] Dr. Shayne Roldan EGFR-NON AF HAITIAN 45 mL/min/1.73m2 Critically low >=60 [facility] Comment on above: Performed By: #### M G, RENAL, URIC #### [facility] [address] [place] [address] Dr. Shayne Roldan Glucose [Mass/Vol] 193 mg/dL Critically high 74-106 [facility] Comment on above: Performed By: #### M G, RENAL, URIC #### [facility] [address] [place] [address] Dr. Shayne Roldan Phosphate [Mass/Vol] 3.2 mg/dL Normal 2.6-4.7 [facility] Comment on above: Performed By: #### M G, RENAL, URIC #### [facility] [address] [place] [address] Dr. Shayne Roldan Potassium [Moles/Vol] 3.9 mmol/L Normal 3.5-5.1 [facility] Comment on above: Performed By: #### M G, RENAL, URIC #### [facility] [address] [place], [place] [id number] Dr. Shayne Roldan Sodium [Moles/Vol] 140 mmol/L Normal 136-145 [facility] Comment on above: Performed By: #### M G, RENAL, URIC #### [facility] [address] [place] [address] Dr. Shayne Roldan Urea nitrogen [Mass/Vol] 17.0 mg/dL Normal 7.0-18.0 [facility] Comment on above: Performed By: #### M G, RENAL, URIC #### [facility] [address] [place] [address] Dr. Shayne Roldan UA RANDOM W/MICROSCOPICon BACTERIA TRACE Abnormal NONE SEEN [facility] Comment on above: Performed By: #### M G, RENAL, URIC #### [facility] [address] [place] [address] Dr. Shayne Roldan Bilirubin Ql (U) Negative Normal NEGATIVE [facility] Comment on above: Performed By: #### M G, RENAL, URIC #### [facility] [address] [place] [address] Dr. Shayne Roldan CAST NONE SEEN Normal NONE SEEN [facility] Comment on above: Performed By: #### M G, RENAL, URIC #### [facility] [address] [place] [address] Dr. Shayne Roldan Clarity (U) CLEAR Normal CLEAR [facility] Comment on above: Performed By: #### M G, RENAL, URIC #### [facility] [address] [place] [address] Dr. Shayne Roldan Color (U) LT. YELLOW Normal YELLOW [facility] Comment on above: Performed By: #### M G, RENAL, URIC #### [facility] [address] [address] [address] Shayne Roldan Crystals LM Nom (Urine sed) NONE SEEN Normal NONE SEEN [facility] Comment on above: Performed By: #### M G, RENAL, URIC #### [facility] [address] [place] [address] Dr. Shayne Roldan Epithelial cells LM Ql (Urine sed) RARE Normal NONE SEEN /RARE [facility] Comment on above: Performed By: #### M G, RENAL, URIC #### [facility] [address] [address] [address] Shayne Roldan Glucose Ql (U) Negative Normal NEGATIVE [facility] Comment on above: Performed By: #### M G, RENAL, URIC #### [facility] [address] [address] [address] Shayne Roldan Hemoglobin Ql (U) Negative Normal NEGATIVE [facility] Comment on above: Performed By: #### M G, RENAL, URIC #### [facility] [address] [address] [address] Shayne Roldan Ketones Ql (U) Negative Normal NEGATIVE [facility] Comment on above: Performed By: #### M G, RENAL, URIC #### [facility] [address] [address] [address] Shayne Roldan LEUKOCYTES Negative Normal NEGATIVE [facility] Comment on above: Performed By: #### M G, RENAL, URIC #### [facility] [address] [address] [address] Shayne Roldan MUCOUS NONE SEEN Normal NONE SEEN [facility] Comment on above: Performed By: #### M G, RENAL, URIC #### [facility] [address] [address] [address] Shayne Roldan Nitrite Ql (U) Negative Normal NEGATIVE [facility] Comment on above: Performed By: #### M G, RENAL, URIC #### [facility] [address] [address] [address] Shayne Roldan pH (U) 5.0 [pH] Normal 5-9 [facility] Comment on above: Performed By: #### M G, RENAL, URIC #### [facility] [address] [address] [address] Shayne Roldan RBC 0-2 Normal 0-2 [facility] Comment on above: Performed By: #### M G, RENAL, URIC #### [facility] [address] [address] [address] Shayne Roldan SPEC GRAVITY 1.025 Normal 1.005-<=1.02 5 [facility] Comment on above: Performed By: #### M G, RENAL, URIC #### [facility] [address] [address] [address] Shayne Roldan UA PROTEIN Negative Normal NEGATIVE/ TRACE [facility] Comment on above: Performed By: #### M G, RENAL, URIC #### [facility] [address] [place] [address] Dr. Shayne Roldan Urobilinogen Qn (U) 0.2 {Rogelio'U}/dL Normal 0.2 - 1. 0 [facility] Comment on above: Performed By: #### M G, RENAL, URIC #### [facility] [address] [place] [address] Dr. Shayne Roldan WBC 0-2 Abnormal NONE SEEN [facility] Comment on above: Performed By: #### M G, RENAL, URIC #### [facility] [address] [place] [address] Dr. Shayne Roldan URIC ACID SERUMon 02-25-2023 Urate [Mass/Vol] 6.1 mg/dL Critically high 2.6-6.0 [facility] Comment on above: Performed By: #### M G, RENAL, URIC #### [facility] [address] [place] [address] Dr. Shayne Roldan URINE T PROTEIN CREAT RATIOo n 02-25-2023 Protein (U) [Mass/Vol] 13.0 mg/dL Critically high <=12.0 [facility] Comment on above: Performed By: #### M G, RENAL, URIC #### [facility] [address] [place] [address] Dr. Shayne Roldan UR PROT CREAT RAT 0.16 Normal [facility] Comment on above: Performed By: #### M G, RENAL, URIC #### [facility] [address] [place] [address] Dr. Shayne Roldan URINE CREAT 83.60 mg/dL Normal 20.00-300.00 [facility] Comment on above: Performed By: #### M G, RENAL, URIC #### [facility] [address] [place], [place] [address] Dr. Shayne Roldan VITAMIN D 25 OHon 02-25-2023 VIT D 25-OH 41.6 ng/mL Normal [facility] Comment on above: Performed By: #### M G, RENAL, URIC #### [facility] [address] [place], [place] [address] Dr. Shayne Roldan VIT D RANGES SEE BELOW Normal [facility] Comment on above: Result Comment: <20 ng/mL Vit D deficient 20 - <30 ng/mL Vit D insufficient 30 - 100 ng/mL Vit D sufficient >100 ng/mL Potential Toxicity Performed By: #### M G, RENAL, URIC #### [facility] [address] [place], [place] [address] Dr. Shayne Roldan XR CHEST 2 Von [...] GALDAMEZ Date: 2023-02-22 16:15 Normal [facility] MAMM SCREEN 3D PRATEEK CADon 12-15-2022 MAMM SCREEN 3D PRATEEK CAD Patient: DIANA CHAMPION Exam Date: 12/15/2022 : 1955 Gender:F Ordering : DR JACK HALL . Admission #: [id number] Family : Order #: [id number] CLICK HERE TO VIEW EXAM RADIOLOGY REPORT PROCEDURE: MAMMOGRAM SCREENING 3D BILATERAL CAD COMPARISON: MG MAMM SCREEN 3D PRATEEK CAD, 11/26/2021. INDICATIONS: Calculator Name NCI Breast Cancer Risk Assessment Tool 5 Year Breast Cancer Risk 1.20% Lifetime Breast Cancer Risk 4.40% Personal Breast Cancer No Personal Ovarian Cancer No Treatments Excision, radiation, chemotherapy Family Cancers None LOCATION: [facility] BREAST COMPOSITION: Almost entirely [...] Walters MD on 12/15/2022 at 10:51 Normal [facility] XR DEXA BONE DENSITYon 12-15 XR [...] authenticated by: STEPH GRANADOS Date: 2022-12-15 09:50 [facility] PAP ACOG PANEL 2: 30 to 65on 11-16-2022 . . Normal [facility] Comment on above: Performed By: #### [id number] #### [facility] [address] [place] [address] Dr. Shayne Roldan Age Gdln ACOG Testing Comment Normal [facility] Comment on above: Result Comment: <21 or >65 or no age provided Performed By: #### [id number] #### [facility] [address] [place] [address] Dr. Shayne Roldan DIAGNOSIS: Comment [facility] Comment on above: Result Comment: NEGA TIVE FOR INTRAEPITHELIAL LESION OR MALIGNANCY. Performed By: #### [id number] #### [facility] [address] [place] [address] Dr. Shayne Roldan Methodology: Comment Normal [facility] Comment on above: Result Comment: This liquid based ThinPrep(R) pap test was screened with the use of an image guided system. Performed By: #### [id number] #### [facility] [address] [place] [address] Dr. Shanye Roldan Note: Comment Normal [facility] Comment on above: Result Comment: The Pap smear is a screening test designed to aid in the detection of premalignant and malignant conditions of the uterine cervix. It is not a diagnostic procedure and should not be used as the sole means of detecting cervical cancer. Both false-positive and false-negative reports do occur. . Performed By: #### [id number] #### [facility] [address] [place] [address] Dr. Shayne Roldan Performed by: Comment Normal [facility] Comment on above: Result Comment: [employer] Tester (ASCP) Performed By: #### [id number] #### [facility] [address] [place] [address] Dr. Shayne Roldan Specimen adequacy: Comment Normal [facility] Comment on above: Result Comment: Sati sfactory for evaluation. Endocervical and/or squamous metaplastic cells (endocervical component) are present. Performed By: #### [id number] #### [facility] [address] [place] [address] Dr. Shayne Roldan RENAL FUNCTION PANELon 08-19 Albumin [Mass/Vol] 3.4 g/dL Normal 3.4-5.0 [facility] Comment on above: Performed By: #### M G, RENAL, URIC #### [facility] [address] [place] [address] Dr. Shayne Roldan Calcium [Mass/Vol] 8.4 mg/dL Critically low 8.5-10.1 [facility] Comment on above: Performed By: #### M G, RENAL, URIC #### [facility] [address] [place] [address] Dr. Shayne Roldan Chloride [Moles/Vol] 103 mmol/L Normal 98-107 [facility] Comment on above: Performed By: #### M G, RENAL, URIC #### [facility] [address] [address] [address] Shayne Roldan CO2 [Moles/Vol] 27.8 mmol/L Normal 21.0-32.[address] [facility] Comment on above: Performed By: #### M G, RENAL, URIC #### [facility] [address] [address] [address] Shayne Roldan Creatinine [Mass/Vol] 1.02 mg/dL Normal 0.55-1.02 [facility] Comment on above: Performed By: #### M G, RENAL, URIC #### [facility] [address] [address] [address] Shayne Roldan EGFR-AF HAITIAN >60 Normal >=[address] [facility] Comment on above: Performed By: #### M G, RENAL, URIC #### [facility] [address] [address] [address] Shayne Roldan EGFR-NON AF HAITIAN 54 mL/min/1.73m2 Critically low >=60 [facility] Comment on above: Performed By: #### M G, RENAL, URIC #### [facility] [address] [address] [address] Shayne Roldan Glucose [Mass/Vol] 110 mg/dL Critically high 74-106 [facility] Comment on above: Performed By: #### M G, RENAL, URIC #### [facility] [address] [address] [address] Shayne Roldan Phosphate [Mass/Vol] 2.3 mg/dL Critically low 2.6-4.7 [facility] Comment on above: Performed By: #### M G, RENAL, URIC #### [facility] [address] [address] [address] Sahyne Roldan Potassium [Moles/Vol] 3.2 mmol/L Critically low 3.5-5.1 [facility] Comment on above: Performed By: #### M G, RENAL, URIC #### [facility] [address] [address] [address] Shayne Roldan Sodium [Moles/Vol] 138 mmol/L Normal 136-145 [facility] Comment on above: Performed By: #### M G, RENAL, URIC #### [facility] [address] [place] [address] Dr. Shayne Roldan Urea nitrogen [Mass/Vol] 14.0 mg/dL Normal 7.0-18.0 [facility] Comment on above: Performed By: #### M G, RENAL, URIC #### [facility] [address] [place] [address] Dr. Shayne Roldan PTH INTACTon 08-06-2022 PTH, Intact 40 pg/mL Normal 15-65 [facility] Comment on above: Performed By: #### M G, RENAL, URIC #### [facility] [address] [place] [address] Dr. Shayne Roldan HEMOGRAM AND PLATELon 2021 Hematocrit (Bld) [Volume fraction] 39.8 % Normal 36.0-48.0 [facility] Comment on above: Performed By: #### M G, RENAL, URIC #### [facility] [address] [place] [address] Dr. Shayne Roldan Hemoglobin (Bld) [Mass/Vol] 13.4 g/dL Normal 12.0-16.0 [facility] Comment on above: Performed By: #### M G, RENAL, URIC #### [facility] [address] [place] [address] Dr. Shayne Roldan MCH (RBC) [Entitic mass] 30.5 pg Normal 26.7-34.0 [facility] Comment on above: Performed By: #### M G, RENAL, URIC #### [facility] [address] [place] [address] Dr. Shayne Roldan MCHC (RBC) [Mass/Vol] 33.7 g/dL Normal 29.9-35.2 [facility] Comment on above: Performed By: #### M G, RENAL, URIC #### [facility] [address] [place] [address] Dr. Shayne Roldan MCV (RBC) [Entitic vol] 90.5 fL Normal 81.0-99.0 [facility] Comment on above: Performed By: #### M G, RENAL, URIC #### [facility] [address] [place] [address] Dr. Shayne Roldan PLT 299 103/ul Normal 150-450 [facility] Comment on above: Performed By: #### M G, RENAL, URIC #### [facility] [address] [place] [address] Dr. Shayne Roldan RBC 4.40 106/ul Normal 4.20-5.40 [facility] Comment on above: Performed By: #### M G, RENAL, URIC #### [facility] [address] [place] [address] Dr. Shayne Roldan WBC 8.8 103/ul Normal 4.0-11.0 [facility] Comment on above: Performed By: #### M G, RENAL, URIC #### [facility] [address] [place] [address] Dr. Shayne Roldan MAGNESIUMon 08-05-2022 Magnesium [Mass/Vol] 1.5 mg/dL Critically low 1.8-2.4 [facility] Comment on above: Performed By: #### M G, RENAL, URIC #### [facility] [address] [place] [address] Dr. Shayne Roldan RENAL FUNCTION PANELon 08-05 Albumin [Mass/Vol] 3.5 g/dL Normal 3.4-5.0 [facility] Comment on above: Performed By: #### M G, RENAL, URIC #### [facility] [address] [place] [address] Dr. Shayne Roldan Calcium [Mass/Vol] 8.4 mg/dL Critically low 8.5-10.1 [facility] Comment on above: Performed By: #### M G, RENAL, URIC #### [facility] [address] [place] [address] Dr. Shayne Roldan Chloride [Moles/Vol] 101 mmol/L Normal 98-107 [facility] Comment on above: Performed By: #### M G, RENAL, URIC #### [facility] [address] [address] [address] Shayne Roldan CO2 [Moles/Vol] 29.5 mmol/L Normal 21.0-32.0 [facility] Comment on above: Performed By: #### M G, RENAL, URIC #### [facility] [address] [address] [address] Shayne Roldan Creatinine [Mass/Vol] 1.04 mg/dL Critically high 0.55-1.02 [facility] Comment on above: Performed By: #### M G, RENAL, URIC #### [facility] [address] [address] [address] Shayne Roldan EGFR-AF HAITIAN >60 Normal >=60 [facility] Comment on above: Performed By: #### M G, RENAL, URIC #### [facility] [address] [place] [address] Dr. Shayne Roldan EGFR-NON AF HAITIAN 53 mL/min/1.73m2 Critically low >=60 [facility] Comment on above: Performed By: #### M G, RENAL, URIC #### [facility] [address] [address] [address] Shayne Roldan Glucose [Mass/Vol] 92 mg/dL Normal 74-106 [facility] Comment on above: Performed By: #### M G, RENAL, URIC #### [facility] [address] [address] [address] Shayne Roldan Phosphate [Mass/Vol] 2.4 mg/dL Critically low 2.6-4.7 [facility] Comment on above: Performed By: #### M G, RENAL, URIC #### [facility] [address] [address] [address] Shayne Roldan Potassium [Moles/Vol] 2.8 mmol/L Critically low 3.5-5.1 [facility] Comment on above: Performed By: #### M G, RENAL, URIC #### [facility] [address] [address] [address] Shayne Roldan Sodium [Moles/Vol] 137 mmol/L Normal 136-145 [facility] Comment on above: Performed By: #### M G, RENAL, URIC #### [facility] [address] [address] [address] Shayne Roldan Urea nitrogen [Mass/Vol] 10.0 mg/dL Normal 7.0-18.0 [facility] Comment on above: Performed By: #### M G, RENAL, URIC #### [facility] [address] [address] [address] Shayne Roldan UA RANDOM W/MICROSCOPICon BACTERIA SMALL Abnormal NONE SEEN [facility] Comment on above: Performed By: #### U AMIC #### [facility] [address] [address] [address] Shayne Roldan Bilirubin Ql (U) Negative Normal NEGATIVE [facility] Comment on above: Performed By: #### U AMIC #### [facility] [address] [place] [address] Dr. Shayne Roldan CAST NONE SEEN Normal NONE SEEN [facility] Comment on above: Performed By: #### U AMIC #### [facility] [address] [address] [address] Shayne Roldan Clarity (U) CLEAR Normal CLEAR [facility] Comment on above: Performed By: #### U AMIC #### [facility] [address] [place] [address] Dr. Shayne Roldan Color (U) LT. YELLOW Normal YELLOW [facility] Comment on above: Performed By: #### U AMIC #### [facility] [address] [address] [address] Shayne Roldan Crystals LM Nom (Urine sed) NONE SEEN Normal NONE SEEN [facility] Comment on above: Performed By: #### U AMIC #### [facility] [address] [place] [address] Dr. Shayne Roldan Epithelial cells LM Ql (Urine sed) FEW Abnormal NONE SEEN /RARE [facility] Comment on above: Performed By: #### U AMIC #### [facility] [address] [place] [address] Dr. Shayne Roldan Glucose Ql (U) Negative Normal NEGATIVE [facility] Comment on above: Performed By: #### U AMIC #### [facility] [address] [address] [address] Shayne Roldan Hemoglobin Ql (U) Negative Normal NEGATIVE [facility] Comment on above: Performed By: #### U AMIC #### [facility] [address] [address] [address] Shayne Roldan Ketones Ql (U) Negative Normal NEGATIVE [facility] Comment on above: Performed By: #### U AMIC #### [facility] [address] [address] [address] Shayne Roldan LEUKOCYTES TRACE Abnormal NEGATIVE [facility] Comment on above: Performed By: #### U AMIC #### [facility] [address] [address] [address] Shayne Roldan MUCOUS NONE SEEN Normal NONE SEEN [facility] Comment on above: Performed By: #### U AMIC #### [facility] [address] [address] [address] Shayne Roldan Nitrite Ql (U) Negative Normal NEGATIVE [facility] Comment on above: Performed By: #### U AMIC #### [facility] [address] [address] [address] Shayne Roldan pH (U) 6.0 [pH] Normal 5-9 [facility] Comment on above: Performed By: #### U AMIC #### [facility] [address] [address] [address] Shayne Roldan RBC NONE SEEN Abnormal 0-2 [facility] Comment on above: Performed By: #### U AMIC #### [facility] [address] [address] [address] Shayne Roldan SPEC GRAVITY <=1.005 Abnormal 1.005-<=1.02 5 [facility] Comment on above: Performed By: #### U AMIC #### [facility] [address] [address] [address] Shayne Roldan UA PROTEIN Negative Normal NEGATIVE/ TRACE [facility] Comment on above: Performed By: #### U AMIC #### [facility] [address] [address] [address] Shayne Roldan Urobilinogen Qn (U) 0.2 {Rogelio'U}/dL Normal 0.2 - 1. 0 [facility] Comment on above: Performed By: #### U AMIC #### [facility] [address] [address] [address] Shayne Roldan WBC 5-10 Abnormal NONE SEEN [facility] Comment on above: Performed By: #### U AMIC #### [facility] [address] [place] [address] Dr. Shayne Roldan URIC ACID SERUMon 08-05-2022 Urate [Mass/Vol] 6.5 mg/dL Critically high 2.6-6.0 [facility] Comment on above: Performed By: #### M G, RENAL, URIC #### [facility] [address] [place] [address] Dr. Shayne Roldan URINE T PROTEIN CREAT RATIOo n 08-05-2022 Protein (U) [Mass/Vol] 4.8 mg/dL Normal <=12.0 [facility] Comment on above: Performed By: #### U RTPCR #### [facility] [address] [place] [address] Dr. Shayne Roldan UR PROT CREAT RAT 0.09 Normal [facility] Comment on above: Performed By: #### U RTPCR #### [facility] [address] [place] [address] Dr. Shayne Roldan URINE CREAT 52.65 mg/dL Normal 20.00-300.00 [facility] Comment on above: Performed By: #### U RTPCR #### [facility] [address] [place] [address] Dr. Shayne Roldan VITAMIN D 25 OHon 08-05-2022 VIT D 25-OH 38.9 ng/mL Normal [facility] Comment on above: Performed By: #### M G, RENAL, URIC #### [facility] [address] [place] [address] Dr. Shayne Roldan VIT D RANGES SEE BELOW Normal [facility] Comment on above: Result Comment: <20 ng/mL Vit D deficient 20 - <30 ng/mL Vit D insufficient 30 - 100 ng/mL Vit D sufficient >100 ng/mL Potential Toxicity Performed By: #### M G, RENAL, URIC #### [facility] [address] [place] [address] Dr. Shayne Roldan IMMUNOGLOBULINS IGA/IGM/IGG/ IGE QUANTITAon 07-12-2022 Immunoglobulin A, Qn, Serum 295 mg/dL Normal 87-352 [facility] Comment on above: Result Comment: Perf ormed at: CB Performed By: #### M G, RENAL, URIC #### [facility] [address] [place] [address] Dr. Shayne Roldan Immunoglobulin E, Total 32 IU/mL Normal 6-495 [facility] Comment on above: Result Comment: Perf ormed at: BN Performed By: #### M G, RENAL, URIC #### [facility] [address] [place] [address] Dr. Shayne Roldan Immunoglobulin G, Qn, Serum 729 mg/dL Normal 586-1602 [facility] Comment on above: Result Comment: Perf ormed at: CB Performed By: #### M G, RENAL, URIC #### [facility] [address] [place] [address] Dr. Shayne Roldan Immunoglobulin M, Qn, Serum 75 mg/dL Normal 26-217 [facility] Comment on above: Result Comment: Perf ormed at: CB Performed By: #### M G, RENAL, URIC #### [facility] [address] [place] [address] Dr. Shayne Roldan CBC AUTO DIFFon 07-05-2022 BASO # 0.1 103/ul Normal 0.0-0.1 [facility] Comment on above: Performed By: #### M G, RENAL, URIC #### [facility] [address] [place] [address] Dr. Shayne Roldan Basophils/100 WBC (Bld) 0.7 % Normal 0.2-2.0 [facility] Comment on above: Performed By: #### M G, RENAL, URIC #### [facility] [address] [address] [address] Shayne Roldan EO # 0.4 103/ul Normal 0.0-0.7 [facility] Comment on above: Performed By: #### M G, RENAL, URIC #### [facility] [address] [address] [address] Shayne Roldan Eosinophils/100 WBC (Bld) 4.4 % Normal 0.9-7.0 [facility] Comment on above: Performed By: #### M G, RENAL, URIC #### [facility] [address] [address] [address] Shayne Roldan Erythrocyte distribution width (RBC) [Ratio] 12.6 % Normal 11.0-15.0 [facility] Comment on above: Performed By: #### M G, RENAL, URIC #### [facility] [address] [place] [address] Dr. Shayne Roldan Hematocrit (Bld) [Volume fraction] 40.2 % Normal 36.0-48.0 [facility] Comment on above: Performed By: #### M G, RENAL, URIC #### [facility] [address] [address] [address] Shayne Roldan Hemoglobin (Bld) [Mass/Vol] 13.6 g/dL Normal 12.0-16.0 [facility] Comment on above: Performed By: #### M G, RENAL, URIC #### [facility] [address] [address] [address] Shayne Roldan IG # 0.07 10e3/ul Critically high 0.00-0.03 [facility] Comment on above: Performed By: #### M G, RENAL, URIC #### [facility] [address] [address] [address] Shayne Roldan IG % 0.8 % Critically high 0.0-0.5 [facility] Comment on above: Performed By: #### M G, RENAL, URIC #### [facility] [address] [address] [address] Shayne Roldan LYMPH # 2.3 103/ul Normal 1.2-3.8 [facility] Comment on above: Performed By: #### M G, RENAL, URIC #### [facility] [address] [place] [address] Dr. Shayne Roldan Lymphocytes/100 WBC (Bld) 24.7 % Normal 20.5-60.0 [facility] Comment on above: Performed By: #### M G, RENAL, URIC #### [facility] [address] [place] [address] Dr. Shayne Roldan MANUAL DIFF REQ NO Normal [facility] Comment on above: Performed By: #### M G, RENAL, URIC #### [facility] [address] [place] [address] Dr. Shayne Roldan MCH (RBC) [Entitic mass] 30.7 pg Normal 26.7-34.0 [facility] Comment on above: Performed By: #### M G, RENAL, URIC #### [facility] [address] [place] [address] Dr. Shayne Roldan MCHC (RBC) [Mass/Vol] 33.8 g/dL Normal 29.9-35.2 [facility] Comment on above: Performed By: #### M G, RENAL, URIC #### [facility] [address] [place] [address] Dr. Shayne Roldan MCV (RBC) [Entitic vol] 90.7 fL Normal 81.0-99.0 [facility] Comment on above: Performed By: #### M G, RENAL, URIC #### [facility] [address] [place] [address] Dr. Shayne Roldan MONO # 0.7 103/ul Normal 0.3-0.8 [facility] Comment on above: Performed By: #### M G, RENAL, URIC #### [facility] [address] [place] [address] Dr. Shayne Roldan Monocytes/100 WBC (Bld) 7.7 % Normal 1.7-12.0 [facility] Comment on above: Performed By: #### M G, RENAL, URIC #### [facility] [address] [place] [address] Dr. Shayne Roldan NEUT # 5.7 103/ul Normal 1.4-6.5 [facility] Comment on above: Performed By: #### M Poncho, RENAL, URIC #### [facility] [address] [place] [address] Dr. Shayne Roldan Neutrophils/100 WBC (Bld) 61.7 % Normal 43.0-75.0 [facility] Comment on above: Performed By: #### M Poncho, RENAL, URIC #### [facility] [address] [place] [address] Dr. Shayne Roldan Platelet mean volume (Bld) [Entitic vol] 8.8 fL Critically low 9.5-13.5 [facility] Comment on above: Performed By: #### M Poncho RENAL, URIC #### [facility] [address] [place] [address] Dr. Shayne Roldan PLT 279 103/ul Normal 150-450 [facility] Comment on above: Performed By: #### Katy sIaac, RENAL, URIC #### [facility] [address] [place] [address] Dr. Shayne Roldan RBC 4.43 106/ul Normal 4.20-5.40 [facility] Comment on above: Performed By: #### Katy Poncho RENAL, URIC #### [facility] [address] [place] [address] Dr. Shayne Roldan WBC 9.1 103/ul Normal 4.0-11.0 [facility] Comment on above: Performed By: #### M Poncho, RENAL, URIC #### [facility] [address] [place] [address] Dr. Shayne Roldan Covid-19 PCR ([facility])on SARS-CoV-2 (COVID-19) RNA KAYLEE+probe Ql (Unsp spec) Not detected Normal NOT DETECTED [facility] Comment on above: Result Comment: This test is not yet approved or cleared by the [place] FDA. When there are no FDA-approved or cleared tests available, and other criteria are met, FDA can make tests available under an emergency access mechanism called an Emergency Use Authorization (EUA). The EUA for this test is supported by the Peace Officer of Health and Human Service's (HHS's) [...] By: #### M G, RENAL, URIC #### [facility] [address] [address] [address] Shayne Roldan XR CHEST 2 Von [...] NARDA LONDONO Date: 2022-06-08 19:58 Normal [facility] Covid-19 PCR (CVD[facility])on SARS-CoV-2 (COVID-19) RNA KAYLEE+probe Ql (Unsp spec) Not detected Normal NOT DETECTED [facility] Comment on above: Result Comment: This test is not yet approved or cleared by the [place] FDA. When there are no FDA-approved or cleared tests available, and other criteria are met, FDA can make tests available under an emergency access mechanism called an Emergency Use Authorization (EUA). The EUA for this test is supported by the Peace Officer of Health and Human Service's (HHS's) [...] with SARS-CoV-2. Performed By: #### [facility] #### [facility] [address] [address] [address] Shayne Roldan DEXA AXIALon 03-01-2022 DEXA AXIAL [facility] Department of Radiology [address] [place] [id number] == Patient Name: DIANA CHAMPION : 1955 Sex: F Age: Race: White Pt. Location: Patient Status: D Ordered Date: 02/24/2022 1:25:00 PM Completed Date: 03/01/2022 09:46 AM Requesting Provider: CINDA ANTONIO Attending Provider: Report Copy To: Signs & Symptoms: Z78.0 Asymptomatic menopausal state I10 History: [place] Comments: Exam: DEXA AXIAL == DEXA AXIAL [...] characteristics. Electronically signed: Luzma Marks. Transcribed by: [email or web address], User Resident: Electronically Signed by: LUZMA MARKS @ 03/02/2022 01:07 PM Normal [facility] SCOLIOSIS 2 [facility] 02-24-2022 SCOLIOSIS 2 [facility] Department of Radiology [address] [place] [id number] == Patient Name: DIANA CHAMPION : [...] spine. Electronically signed: Hugo Lynn. Transcribed by: [email or web address], User Resident: Electronically Signed by: HUGO LYNN @ 02/26/2022 11:07 AM Normal [facility] Comment on above: Order Comment: Views (X-RAY, SCOLIOSIS): PA, Lateral evaluate CT LUMBAR SPINE W CONTRASTon 01-24-2022 CT LUMBAR SPINE W CONTRAST [facility] Department of Radiology [address] [place] [id number] == Patient Name: DIANA CHAMPION : [...] L1-2. Electronically signed: Gaurang Hess. Transcribed by: [email or web address], User Resident: Electronically Signed by: GAURANG HESS @ 01/26/2022 08:58 AM Normal [facility] Comment on above: Order Comment: , CT MYELOGRAM>PAPER WORK IN CHART LUMBAR MYELOGRAMon 2 LUMBAR MYELOGRAM [facility] Department of Radiology [address] [place] [phone] == Patient Name: DIANA CHAMPION : 1955 Sex: F Age: Race: White Pt. Location: Patient Status: O Ordered Date: 01/09/2022 9:00:00 AM Completed Date: 01/24/2022 02:37 PM Requesting Provider: JOO LINN Attending Provider: JOO LINN Report Copy To: UNKNOWN, PHYSICIAN Signs & Symptoms: M54.16 Radiculopathy, lumbar region I10 History: Jessica Is patient on thinners? 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 Consent was obtained. Timeout: [place] protocol timeout verification performed. PROCEDURE: Estimated blood [...] report. Electronically signed: Greg Mcmahan. Transcribed by: [email or web address], User Resident: DEBBIE JI Electronically Signed by: GREG MCMAHAN @ 01/24/2022 04:07 PM I personally read this/these film(s) with this resident Normal [facility] Comment on above: Order Comment: , CT MYELOGRAM> PAPER WORK SCANNED IN CHART , CT MYELOGRAM> PAPER WORK SCANNED IN CHART , , , Ordering Provider - JOO LINN MD , HIP LEFT 1 OR 2 VWS WITH PEL VISon 01-06-2022 HIP LEFT 1 OR 2 VWS WITH PELVIS [facility] Department of Radiology [address] [place] [id number] == Patient Name: DIANA CHAMPION : 1955 Sex: F Age: Race: White Pt. Location: Patient Status: D Ordered Date: 12/21/2021 10:45:00 AM Completed Date: 01/06/2022 01:24 PM Requesting Provider: JOO LINN Attending Provider: JOO LINN Report Copy To: Signs & Symptoms: Z96.642 Presence of left artificial hip joint I10 History: [place] Comments: Evaluate Exam: HIP LEFT 1 OR 2 VWS WITH PELVIS == HIP LEFT 1 OR 2 VWS WITH PELVIS HISTORY: Hip replacement, follow-up. COMPARISON: None. IMPRESSION: 1. Redemonstrated left hip prosthesis without visible complication. 2. Advanced right hip arthritis without significant change with advanced joint space narrowing. Unchanged lumbosacral fusion hardware. Electronically signed: Joe Matthew. Transcribed by: [email or web address], User Resident: Electronically Signed by: JOE MATTHEW @ 01/09/2022 04:45 PM Normal [facility] Comment on above: Order Comment: Evalu ate Vital Signs Date Time Vital Sign Value Performing Clinician Facility 01-02-2025 14:54-0500 Body mass index (BMI) [Ratio] 40.2 kg/m2 Kaylene López ELECTRONIC TECHNOLOGIST Work Phone: [facility] 01-02-2025 14:54-0500 Body temperature 99.61 [degF] Kaylene López ELECTRONIC TECHNOLOGIST Work Phone: [facility] 01-02-2025 14:54-0500 Body weight 106.23 kg Kaylene López ELECTRONIC TECHNOLOGIST Work Phone: [facility] 01-02-2025 14:54-0500 Diastolic blood pressure 84 mm[Hg] Kaylene López ELECTRONIC TECHNOLOGIST Work Phone: [facility] 01-02-2025 14:54-0500 Heart rate 78 /min Kaylene López ELECTRONIC TECHNOLOGIST Work Phone: [facility] 01-02-2025 14:54-0500 Respiratory rate 26 /min Kaylene López ELECTRONIC TECHNOLOGIST Work Phone: [facility] 01-02-2025 14:54-0500 SaO2% (BldA) [Mass fraction] 91 % Kaylene López ELECTRONIC TECHNOLOGIST Work Phone: [facility] 01-02-2025 14:54-0500 Systolic blood pressure 120 mm[Hg] Kaylene López ELECTRONIC TECHNOLOGIST Work Phone: [facility] 11-28-2024 13:08-0500 Body height 162.6 cm Aida Reese ELECTRONIC TECHNOLOGIST Work Phone: [facility] 11-28-2024 13:08-0500 Body mass index (BMI) [Ratio] 40.51 kg/m2 Aida Reese ELECTRONIC TECHNOLOGIST Work Phone: [facility] 11-28-2024 13:08-0500 Body temperature 97.9 [degF] Aida Reese ELECTRONIC TECHNOLOGIST Work Phone: [facility] 11-28-2024 13:08-0500 Body weight 107.05 kg Aida Reese ELECTRONIC TECHNOLOGIST Work Phone: [facility] 11-28-2024 13:08-0500 Diastolic blood pressure 82 mm[Hg] Aida Reese ELECTRONIC TECHNOLOGIST Work Phone: [facility] 11-28-2024 13:08-0500 Heart rate 79 /min Aida Reese ELECTRONIC TECHNOLOGIST Work Phone: [facility] 11-28-2024 13:08-0500 Respiratory rate 20 /min Aida Reese ELECTRONIC TECHNOLOGIST Work Phone: [facility] 11-28-2024 13:08-0500 SaO2% (BldA) [Mass fraction] 96 % Aida Reese ELECTRONIC TECHNOLOGIST Work Phone: [facility] 11-28-2024 13:08-0500 Systolic blood pressure 148 mm[Hg] Aida Reese ELECTRONIC TECHNOLOGIST Work Phone: [facility] 11-12-2024 10:24-0500 Body mass index (BMI) [Ratio] 40.75 kg/m2 Aida Reese ELECTRONIC TECHNOLOGIST Work Phone: [facility] 11-12-2024 10:24-0500 Body temperature 98.71 [degF] Aida Reese ELECTRONIC TECHNOLOGIST Work Phone: [facility] 11-12-2024 10:24-0500 Body weight 107.68 kg Aida Reese ELECTRONIC TECHNOLOGIST Work Phone: [facility] 11-12-2024 10:24-0500 Diastolic blood pressure 78 mm[Hg] Aida Reese ELECTRONIC TECHNOLOGIST Work Phone: [facility] 11-12-2024 10:24-0500 Heart rate 68 /min Aida Reese ELECTRONIC TECHNOLOGIST Work Phone: [facility] 11-12-2024 10:24-0500 Respiratory rate 18 /min Aida Reese ELECTRONIC TECHNOLOGIST Work Phone: [facility] 11-12-2024 10:24-0500 SaO2% (BldA) [Mass fraction] 92 % Aida Reese ELECTRONIC TECHNOLOGIST Work Phone: [facility] 11-12-2024 10:24-0500 Systolic blood pressure 134 mm[Hg] Aida Reese ELECTRONIC TECHNOLOGIST Work Phone: [facility] 10-15-2024 14:29-0500 Blood Pressure Location MAG JOSE ALEJANDRO [facility] 10-15-2024 14:29-0500 Diastolic blood pressure 75 mm[Hg] MAG JOSE ALEJANDRO [facility] 10-15-2024 14:29-0500 Heart rate 64 /min MAG JOSE ALEJANDRO [facility] 10-15-2024 14:29-0500 Respiratory rate 20 /min MAG JOSE ALEJANDRO [facility] 10-15-2024 14:29-0500 Systolic blood pressure 147 mm[Hg] MAG BLOUNT [facility] 10-07-2024 14:22-0500 Body height 162.6 cm Aida Reese ELECTRONIC TECHNOLOGIST Work Phone: [facility] 10-07-2024 14:22-0500 Body mass index (BMI) [Ratio] 40.85 kg/m2 Aida Reese ELECTRONIC TECHNOLOGIST Work Phone: [facility] 10-07-2024 14:22-0500 Body weight 107.96 kg Aida Reese ELECTRONIC TECHNOLOGIST Work Phone: [facility] 10-07-2024 14:22-0500 Diastolic blood pressure 72 mm[Hg] Aida Reese ELECTRONIC TECHNOLOGIST Work Phone: [facility] 10-07-2024 14:22-0500 Heart rate 64 /min Aida Reese ELECTRONIC TECHNOLOGIST Work Phone: [facility] 10-07-2024 14:22-0500 Respiratory rate 18 /min Aida Reese ELECTRONIC TECHNOLOGIST Work Phone: [facility] 10-07-2024 14:22-0500 SaO2% (BldA) [Mass fraction] 93 % Aida Reese ELECTRONIC TECHNOLOGIST Work Phone: [facility] 10-07-2024 14:22-0500 Systolic blood pressure 110 mm[Hg] Aida Reese ELECTRONIC TECHNOLOGIST Work Phone: [facility] 09-05-2024 12:53-0400 Body height 162.56 cm Aida Reese ELECTRONIC TECHNOLOGIST-C Work Phone: [facility] 09-05-2024 12:53-0400 Body weight 104.32 kg Aida Reese ELECTRONIC TECHNOLOGIST-C Work Phone: [facility] 08-19-2024 11:41-0400 Body mass index (BMI) [Ratio] 40.34 kg/m2 Aida Reese ELECTRONIC TECHNOLOGIST Work Phone: [facility] 08-19-2024 11:41-0400 Body temperature 97.59 [degF] Aida Reese ELECTRONIC TECHNOLOGIST Work Phone: [facility] 08-19-2024 11:41-0400 Body weight 106.59 kg Aida Reese ELECTRONIC TECHNOLOGIST Work Phone: [facility] 08-19-2024 11:41-0400 Diastolic blood pressure 76 mm[Hg] Aida Reese ELECTRONIC TECHNOLOGIST Work Phone: [facility] 08-19-2024 11:41-0400 Heart rate 57 /min Aida Reese ELECTRONIC TECHNOLOGIST Work Phone: [facility] 08-19-2024 11:41-0400 SaO2% (BldA) [Mass fraction] 90 % Aida Reese ELECTRONIC TECHNOLOGIST Work Phone: [facility] 08-19-2024 11:41-0400 Systolic blood pressure 138 mm[Hg] Aida Reese ELECTRONIC TECHNOLOGIST Work Phone: [facility] 07-11-2024 08:25-0400 Body height 162.6 cm Aida Reese ELECTRONIC TECHNOLOGIST Work Phone: [facility] 07-11-2024 08:25-0400 Body mass index (BMI) [Ratio] 41.02 kg/m2 Aida Reese ELECTRONIC TECHNOLOGIST Work Phone: [facility] 07-11-2024 08:25-0400 Body temperature 98.1 [degF] Aida Reese ELECTRONIC TECHNOLOGIST Work Phone: [facility] 07-11-2024 08:25-0400 Body weight 108.41 kg Aida Reese ELECTRONIC TECHNOLOGIST Work Phone: [facility] 07-11-2024 08:25-0400 Diastolic blood pressure 74 mm[Hg] Aida Hartpatrick ELECTRONIC TECHNOLOGIST Work Phone: [facility] 07-11-2024 08:25-0400 Heart rate 83 /min Aida Brannonzpatrick ELECTRONIC TECHNOLOGIST Work Phone: [facility] Comment on above: 94% O2 07-11-2024 08:25-0400 Systolic blood pressure 130 mm[Hg] Aida Brannonzpatrick ELECTRONIC TECHNOLOGIST Work Phone: [facility] 03-14-2024 10:30-0400 Body height 165.1 cm Steph Galindo Work Phone: [facility] 03-14-2024 10:30-0400 Body mass index (BMI) [Ratio] 39 kg/m2 Steph Josie Work Phone: [facility] 03-14-2024 10:30-0400 Body temperature 97.4 [degF] Steph Galindo Work Phone: [facility] 03-14-2024 10:30-0400 Body weight 106.36 kg Steph Galindo Work Phone: [facility] 03-14-2024 10:30-0400 Diastolic blood pressure 80 mm[Hg] Steph Collier Work Phone: [facility] 03-14-2024 10:30-0400 Heart rate 77 /min Steph Galindo Work Phone: [facility] 03-14-2024 10:30-0400 Inhaled oxygen flow rate 3 L/min Steph Josie Work Phone: [facility] 03-14-2024 10:30-0400 Respiratory rate 20 /min Steph Josie Work Phone: [facility] 03-14-2024 10:30-0400 SaO2% (BldA) [Mass fraction] 92 % Steph Collier Work Phone: [facility] 03-14-2024 10:30-0400 Systolic blood pressure 120 mm[Hg] Steph Collier Work Phone: [facility] 08-17-2023 09:20-0400 Body height 165.1 cm Herberth Joana Other [employer] Other 08-17-2023 09:20-0400 Body mass index (BMI) [Ratio] 38.1 kg/m2 Herberth Joana Other [employer] Other 08-17-2023 09:20-0400 Body temperature 98.8 [degF] Herberth Joana Other [employer] Other 08-17-2023 09:20-0400 Body weight 103.87 kg Herberth Joana Other [employer] Other 08-17-2023 09:20-0400 Diastolic blood pressure 85 mm[Hg] Herberth Joana Other [employer] Other 08-17-2023 09:20-0400 Respiratory rate 18 /min Herberth Joana Other [employer] Other 08-17-2023 09:20-0400 SaO2% (BldA) [Mass fraction] 94 % Herberth Joana Other [employer] Other 08-17-2023 09:20-0400 Systolic blood pressure 151 mm[Hg] Herberth Joana Other [employer] Other 03-02-2023 10:00-0400 Body height 165.1 cm Herberth Joana Other [employer] Other 03-02-2023 10:00-0400 Body mass index (BMI) [Ratio] 37.29 kg/m2 Herberth Joana Other [employer] Other 03-02-2023 10:00-0400 Body temperature 98.9 [degF] Herberth Joana Other [employer] Other 03-02-2023 10:00-0400 Body weight 101.65 kg Herberth Joana Other [employer] Other 03-02-2023 10:00-0400 Diastolic blood pressure 76 mm[Hg] Herberth Joana Other [employer] Other 03-02-2023 10:00-0400 Respiratory rate 20 /min Herberth Joana Other [employer] Other 03-02-2023 10:00-0400 SaO2% (BldA) [Mass fraction] 96 % Herberth Joana Other [employer] Other 03-02-2023 10:00-0400 Systolic blood pressure 136 mm[Hg] Herberht Joana Other [employer] Other 12-08-2022 09:30-0500 Diastolic blood pressure 59 mm[Hg] MD Shaikh Ohara Work Phone: [facility] 12-08-2022 09:30-0500 Heart rate 55 /min MD Shaikh Ohara Work Phone: [facility] 12-08-2022 09:30-0500 Respiratory rate 16 /min MD Shaikh Ohraa Work Phone: [facility] 12-08-2022 09:30-0500 SaO2% (BldA) [Mass fraction] 96 % MD Shaikh Ohara Work Phone: [facility] 12-08-2022 09:30-0500 Systolic blood pressure 112 mm[Hg] MD Shaikh Ohara Work Phone: [facility] 12-08-2022 06:54-0500 Body height 162.56 cm MD Shaikh Ohara Work Phone: [facility] 12-08-2022 06:54-0500 Body temperature 98.2 [degF] MD Shaikh Ohara Work Phone: [facility] 12-08-2022 06:54-0500 Body weight 104.32 kg MD Shaikh Ohara Work Phone: [facility] 08-09-2022 11:00-0400 Body height 165.1 cm Herberth Joana Other [employer] Other 08-09-2022 11:00-0400 Body mass index (BMI) [Ratio] 37.87 kg/m2 Herberth Joana Other [employer] Other 08-09-2022 11:00-0400 Body temperature 97.2 [degF] Herberth Joana Other [employer] Other 08-09-2022 11:00-0400 Body weight 103.24 kg Herberth Joana Other [employer] Other 08-09-2022 11:00-0400 Diastolic blood pressure 88 mm[Hg] Herberth Joana Other [employer] Other 08-09-2022 11:00-0400 Respiratory rate 20 /min Herberth Joana Other [employer] Other 08-09-2022 11:00-0400 SaO2% (BldA) [Mass fraction] 95 % Herberth Joana Other [employer] Other 08-09-2022 11:00-0400 Systolic blood pressure 133 mm[Hg] Herberth Joana Other [employer] Other 11-17-2021 10:40-0500 Body height 165.1 cm Herberth Joana Other [employer] Other 11-17-2021 10:40-0500 Body mass index (BMI) [Ratio] 37.97 kg/m2 Herberth Joana Other [employer] Other 11-17-2021 10:40-0500 Body temperature 97.8 [degF] Herberth Joana Other [employer] Other 11-17-2021 10:40-0500 Body weight 103.51 kg Herberth Joana Other [employer] Other 11-17-2021 10:40-0500 Diastolic blood pressure 70 mm[Hg] Herberth Joana Other [employer] Other 11-17-2021 10:40-0500 Respiratory rate 18 /min Herberth Joana Other [employer] Other 11-17-2021 10:40-0500 SaO2% (BldA) [Mass fraction] 94 % Herberth Joana Other [employer] Other 11-17-2021 10:40-0500 Systolic blood pressure 130 mm[Hg] Herberth Joana Other [employer] Other 08-30-2021 13:15-0400 Body height 165.1 cm Rena Ginty Other [employer] Other 08-30-2021 13:15-0400 Body mass index (BMI) [Ratio] 36.61 kg/m2 Rena Ginty Other [employer] Other 08-30-2021 13:15-0400 Body temperature 98.7 [degF] Rena Ginty Other [employer] Other 08-30-2021 13:15-0400 Body weight 99.79 kg Rena Ginty Other [employer] Other 08-30-2021 13:15-0400 SaO2% (BldA) [Mass fraction] 90 % Rena Ginty Other [employer] Other Encounters Encounter Date Encounter Type Care Provider Facility Start: 01-02-2025 End: 01-02-2025 Office outpatient visit 25 minutes Kaylene López NP Work Phone: [facility] Comment on above: Flu-like symptoms (P rimary Dx); Morbid (severe) obesity due to excess calories (CMS/HCC); Body mass index (BMI) 40.0-44.9, adult (CMS/HCC); Pulmonary emphysema, unspecified emphysema type (CMS/HCC); Chronic respiratory failure with hypoxia (CMS/HCC); Essential hypertension (CMS/HCC) Start: 01-02-2025 End: 01-02-2025 Bamboo flowsheet Kaylene Aichholz ELECTRONIC TECHNOLOGIST Work Phone: [facility] Start: 01-02-2025 End: 01-02-2025 Bamboo flowsheet Kaylene López ELECTRONIC TECHNOLOGIST Work Phone: [facility] Start: 12-17-2024 End: 12-17-2024 Office outpatient visit 15 minutes Jessica Lazo MD Work Phone: [facility] Comment on above: Seborrheic keratosis (Primary Dx); History of SCC (squamous cell carcinoma) of skin; Lentigines Start: 12-17-2024 End: 12-17-2024 ambulatory JESSICA LAZO Not Available Start: 12-17-2024 End: 12-17-2024 Bamboo flowsheet Ramin KING Work Phone: [facility] Start: 12-17-2024 End: 12-17-2024 Bamboo flowsheet Ramin KING Work Phone: [facility] Start: 12-17-2024 End: 12-17-2024 ambulatory RAMIN BOWERS Not Available Start: 12-17-2024 End: 12-17-2024 Office outpatient visit 25 minutes Ramin KING Work Phone: [facility] Comment on above: Acute pain of right knee (Primary Dx); History of total right knee replacement; Right hip pain; Arthritis of right hip Start: 12-15-2024 End: 12-16-2024 Refrosario Reese ELECTRONIC TECHNOLOGIST Work Phone: [facility] Comment on above: Moderate episode of recurrent major depressive disorder (CMS/HCC) Start: 12-13-2024 End: 12-13-2024 Bamboo flowssamy Lazo MD Work Phone: [facility] Start: 12-13-2024 End: 12-13-2024 Bamboo flowssamy Lazo MD Work Phone: [facility] Start: 12-13-2024 End: 12-13-2024 Office outpatient visit 10 minutes Jessica Lazo MD Work Phone: [facility] Comment on above: Nevus lipomatosus cu taneus superficialis (Primary Dx); Squamous cell carcinoma of skin of chest Start: 12-13-2024 End: 12-13-2024 ambulatory JESSICA LAZO Not Available Start: 12-05-2024 End: 12-09-2024 Refill Aida Reese ELECTRONIC TECHNOLOGIST Work Phone: [facility] Comment on above: Restless leg syndrom e Start: 11-30-2024 End: 12-02-2024 Refill Aida Reese ELECTRONIC TECHNOLOGIST Work Phone: [facility] Comment on above: Gastroesophageal ref lux disease without esophagitis Start: 11-28-2024 End: 11-28-2024 Bamboo flowsheet Aida Reese ELECTRONIC TECHNOLOGIST Work Phone: [facility] Start: 11-28-2024 End: 11-28-2024 Bamboo flowsheet Aida Reese ELECTRONIC TECHNOLOGIST Work Phone: [facility] Start: 11-28-2024 End: 11-28-2024 ambulatory AIDA REESE Not Available Start: 11-28-2024 End: 11-28-2024 Transitional care manage srvc 14 day discharge Aida Reese ELECTRONIC TECHNOLOGIST Work Phone: [facility] Comment on above: Pulmonary emphysema, unspecified emphysema type (CMS/HCC) (Primary Dx) Start: 11-12-2024 End: 11-12-2024 Bamboo flowsheet Aida Reese ELECTRONIC TECHNOLOGIST Work Phone: [facility] Start: 11-12-2024 End: 11-12-2024 Bamboo flowsheet Aida Reese ELECTRONIC TECHNOLOGIST Work Phone: [facility] Start: 11-12-2024 End: 11-12-2024 Office outpatient visit 15 minutes Aida Reese ELECTRONIC TECHNOLOGIST Work Phone: [facility] Comment on above: Chronic obstructive pulmonary disease with acute lower respiratory infection (CMS/HCC) (Primary Dx); Primary HSV infection of mouth Start: 11-12-2024 End: 11-12-2024 ambulatory AIDA BOOKERTRICK Not Available Start: 10-26-2024 End: 10-28-2024 Refill Aida Negronk ELECTRONIC TECHNOLOGIST Work Phone: [facility] Comment on above: Moderate episode of recurrent major depressive disorder (CMS/HCC); Restless leg syndrome Start: 10-17-2024 End: 10-17-2024 ambulatory [facility] Start: 10-15-2024 End: 10-15-2024 ambulatory MAG BLOUNT Facility:[facility] Start: 10-15-2024 End: 10-15-2024 Lab Drop off MAG BLOUNT [facility] Start: 10-15-2024 End: 10-15-2024 Refill Aida Negronk ELECTRONIC TECHNOLOGIST Work Phone: [facility] Comment on above: Moderate episode of recurrent major depressive disorder (CMS/HCC) Start: 10-15-2024 End: 10-15-2024 ambulatory MAG BLOUNT Facility:[facility] Start: 10-15-2024 End: 10-15-2024 Patient encounter procedure MAG BLOUNT [facility] Start: 10-12-2024 End: 10-14-2024 Refill Aida Negronk ELECTRONIC TECHNOLOGIST Work Phone: [facility] Comment on [...] Available Start: 10-08-2024 ambulatory MAG BLOUNT Facility :[facility] Start: 10-07-2024 End: 10-07-2024 Office outpatient visit 15 minutes Aida Negronk ELECTRONIC TECHNOLOGIST Work Phone: [facility] Comment on above: Urge incontinence (P rimary Dx); Morbid obesity with BMI of 40.0-44.9, adult (CMS/HCC); 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; Stage 3a chronic kidney disease (HCC) (CMS/HCC); Chronic respiratory failure with hypoxia (CMS/HCC) Start: 10-07-2024 End: 10-07-2024 ambulatory AIDA REESE Not Available Start: 10-07-2024 End: 10-07-2024 Bamboo flowsheet Aida Reese ELECTRONIC TECHNOLOGIST Work Phone: [facility] Start: 10-07-2024 End: 10-07-2024 Bamboo flowsheet Aida Reese ELECTRONIC TECHNOLOGIST Work Phone: [facility] Start: 09-25-2024 End: 09-26-2024 Refill Aida Reese ELECTRONIC TECHNOLOGIST Work Phone: [facility] Comment on above: Restless leg syndrom e Start: 09-12-2024 End: 09-12-2024 ambulatory Aida N Reese ELECTRONIC TECHNOLOGIST-C Work Phone: [facility] Work Phone: Start: 09-12-2024 End: 09-12-2024 Departed Referred Aida Reese ELECTRONIC TECHNOLOGIST-C Work Phone: [facility] [place] Start: 09-10-2024 End: 09-10-2024 Orders Only Aida Reese ELECTRONIC TECHNOLOGIST Work Phone: [facility] Comment on above: Vaginal guero (Aleja joy Dx) Start: 09-05-2024 End: 09-05-2024 Departed Referred Aida Reese ELECTRONIC TECHNOLOGIST-C Work Phone: [facility] [facility] Work Phone: Start: 09-05-2024 End: 09-05-2024 Patient encounter procedure ELECTRONIC TECHNOLOGIST-C Aida Reese Work Phone: [facility] Work Phone: Start: 09-05-2024 End: 09-05-2024 ambulatory ELECTRONIC TECHNOLOGIST-C Aida Reese Work Phone: [facility] C[facility] Work Phone: Start: 09-03-2024 End: 09-03-2024 Refill Rukhsana Rutherford MA [facility] Comment on above: Gastroesophageal ref lux disease without esophagitis Start: 08-19-2024 End: 08-19-2024 Bamboo flowsheet Aida Negronk ELECTRONIC TECHNOLOGIST Work Phone: [facility] Start: 08-19-2024 End: 08-19-2024 Bamboo flowsheet Aida Negronk ELECTRONIC TECHNOLOGIST Work Phone: [facility] Start: 08-19-2024 End: 08-19-2024 Transitional care manage srvc 7 day discharge Aida Reese ELECTRONIC TECHNOLOGIST Work Phone: [facility] Comment on [...] Start: 08-12-2024 End: 08-27-2024 Refill Aida Reese ELECTRONIC TECHNOLOGIST Work Phone: [facility] Comment on above: Restless leg syndrom e Start: 08-08-2024 End: 08-12-2024 Non-patient / Non-visit ELECTRONIC TECHNOLOGIST-C Aida Reese Work Phone: [facility] Work Phone: Start: 08-08-2024 End: 08-12-2024 Clinisync [...] 07-15-2024 End: 07-15-2024 ambulatory Jayshree Vargas MD Facility:[facility] Start: 07-12-2024 End: 07-12-2024 Clinisync Result Encounter Aida Reese ELECTRONIC TECHNOLOGIST Work Phone: [facility] External Department Unsolicited Start: 07-12-2024 End: 07-12-2024 Clinisync Result Encounter Aida Brannonzpatrick ELECTRONIC TECHNOLOGIST Work Phone: [facility] External Department Unsolicited Start: 07-11-2024 End: 07-11-2024 Bamboo flowsheet Aida Brannonzpatrick ELECTRONIC TECHNOLOGIST Work Phone: [facility] Start: 07-11-2024 End: 07-11-2024 Bamboo flowsheet Aida Reese ELECTRONIC TECHNOLOGIST Work Phone: [facility] Start: 07-11-2024 End: 07-11-2024 ambulatory [facility] Start: 07-11-2024 End: 07-11-2024 Office outpatient visit 25 minutes Aida Reese ELECTRONIC TECHNOLOGIST Work Phone: [facility] Comment on above: Benign essential HTN (CMS/HCC) (Primary Dx); Chronic heart failure with preserved ejection fraction (CMS/HCC); Severe persistent asthma without complication (CMS/HCC); Moderate mixed hyperlipidemia not requiring statin therapy (CMS/HCC); Morbid obesity with BMI of 40.0-44.9, adult (CMS/HCC) Start: 07-11-2024 End: 07-11-2024 ambulatory AIDA REESE Not Available Start: 07-02-2024 End: 07-02-2024 ambulatory [facility] Start: 06-29-2024 Non-patient / Non-visit ELECTRONIC TECHNOLOGIST-C B chase Reese Work Phone: [facility] Work Phone: Start: 06-28-2024 End: 07-02-2024 Clinisync Result Encounter Generic External Data Provider [facility] External Department Unsolicited Start: 06-28-2024 End: 07-02-2024 Clinisync Result Encounter Generic External Data Provider [facility] External Department Unsolicited Start: 06-25-[address] [facility] Start: 06-24-2024 End: 06-24-2024 ambulatory Jayshree Vargas MD Facility:[facility] Start: 06-21-2024 End: 06-21-2024 [facility] Start: 06-12-2024 End: 06-12-2024 ambulatory AIDA REESE Not Available Start: 05-13-2024 End: 05-13-2024 ambulatory MANIAB [facility] Start: 05-06-2024 End: 05-06-2024 ambulatory [...] End: 03-14-2024 ambulatory Steph Collier Work Phone: [facility] Work Phone: Start: 03-14-2024 End: 03-14-2024 Patient encounter procedure Steph Collier Work Phone: [facility] [place] Work Phone: Start: 03-06-2024 Non-patient / Non-visit Steph Collier Work Phone: [facility] Work Phone: Start: 02-26-2024 End: 02-26-2024 ambulatory MESSER FAWWAD Not Available Start: 02-19-2024 End: 02-19-2024 ambulatory Jayshree Vargas MD Facility: [facility] Start: 02-15-2024 End: 02-15-2024 ambulatory KAYLENE LÓPEZ Not Available Start: 01-25-2024 End: 01-25-2024 ambulatory SHAIKH MICHAELBIRD Not Available Start: 12-28-2023 End: 12-28-2023 ambulatory SHAIKH MICHAELBIRD Not Available Start: 12-18-2023 End: 12-18-2023 ambulatory [facility] Start: 11-13-2023 End: 11-13-2023 ambulatory Jayshree Vargas MD Facility:[facility] Start: 11-06-2023 Patient encounter procedure Generic Provider [facility] Start: 10-09-2023 End: 10-09-2023 ambulatory Jayshree Vargas MD Facility: [facility] Start: 09-07-2023 End: 09-07-2023 ambulatory Herberth Joana Other [employer] Other Start: 09-07-2023 Telephone encounter Herberth Joana [facility] Start: 08-28-2023 End: 08-28-2023 ambulatory Herberth Joana Other [employer] Other Start: 08-28-2023 Telephone encounter Herberth Joana [facility] Start: 08-21-2023 End: 08-21-2023 ambulatory Jayshree Vargas MD Facility: [facility] Start: 08-17-2023 End: 08-17-2023 ambulatory Herberth Joana Other [employer] Other Start: 08-17-2023 Office outpatient vi sit 25 minutes Herberth Joana [facility] [place] Start: 04-04-2023 End: 04-04-2023 ambulatory MESSER Dimitry MICHAELJavonANASTASIA Facility:[facility] Start: 03-24-2023 End: 03-25-[address] STEPH GRANADOS Facility:[facility] Start: 03-02-2023 End: 03-02-2023 ambulatory Herberth Joana Other [employer] Other Start: 03-02-2023 Office outpatient vi sit 25 minutes Herberth Joana [facility] Start: 02-25-2023 End: 02-26-2023 ambulatory HERBERTH JOANA Facility:[facility] Start: 02-22-2023 End: 02-23-2023 ambulatory BO MCCLAIN . Facility:[facility] Start: 12-15-2022 End: 12-16-[address] JACK HALL . Facility:[facility] Start: 12-08-2022 End: 12-08-2022 Admission to same day surgery center MD Shaikh Ohara Work Phone: [facility] Work Phone: Start: 12-08-2022 End: 12-08-2022 ambulatory MD Shaikh Ohara Work Phone: [facility] Work Phone: Start: 11-11-2022 End: 11-11-[address] JACK HALL . Facility:[facility] Start: 11-09-2022 End: 11-09-2022 ambulatory Azkatherine Gonzalezs Other [employer] Other Start: 11-09-2022 Telephone encounter Azkatherine Ruelashous [facility] Start: 08-19-2022 End: 08-20-2022 ambulatory HERBERTH JOANA Facility:[facility] Start: 08-09-2022 End: 08-09-2022 ambulatory Herberth Joana Other [employer] Other Start: 08-09-2022 Office outpatient vi sit 10 minutes Herberth Joana [facility] Start: 08-09-2022 Telephone encounter Herberth Joana [facility] Start: 08-05-2022 Telephone encounter Herberth Joana [facility] Start: 08-05-2022 End: 08-06-2022 ambulatory HERBERTH JOANA [facility] Other Start: 07-08-2022 End: 07-08-2022 ambulatory Gato Domingo Other [employer] Other Start: 07-08-2022 Telephone encounter Gato Cesar ck [facility] Start: 07-05-2022 End: 07-06-2022 ambulatory MESSER H FAWWAD Facility:[facility] Start: 06-08-2022 End: 06-09-2022 ambulatory MESSER H FAWWAD Facility:[facility] Start: 06-07-2022 End: 06-07-2022 ambulatory MESSER H FAWWAD Facility:[facility] Start: 01-24-2022 End: 01-25-2022 ambulatory PHYSICIAN UNKNOWN Facility:[facility] Start: 11-17-2021 End: 11-17-2021 ambulatory Herberth Joana Other [email or web address] Other Start: 11-17-2021 Office outpatient vi sit 15 minutes Herberth Joana [facility] Start: 08-30-2021 Office outpatient vi sit 15 minutes Rena Hurd [facility] Start: 09-11-2020 End: 09-11-2020 Chart abstracting Miguelito Buck Work Phone: Hematology/Oncology Start: 09-11-2020 End: 09-11-2020 Patient encounter procedure External Provider [facility] Start: 09-11-2020 Results Only External Provider Exter [facility] Start: 09-30-2019 End: 09-30-2019 Patient encounter procedure [facility] [place] Start: 07-07-2017 End: 07-07-2017 Admission to day surgery [facility] Start: 05-24-2004 Evaluation and management of inpatient [facility] [place] Start: 04-26-2004 Evaluation and management of inpatient [facility] [place] Procedures Date Procedure Procedure Detail Performing Clinician Start: 01-02-2025 STATUS COVID-19/FLU Lis a Aichholz ELECTRONIC TECHNOLOGIST Work Phone: Start: 12-17-2024 End: 12-17-2024 Radex [...] ALL CBC WITH AUTO DIFF Aida Reese ELECTRONIC TECHNOLOGIST Work Phone: Start: 06-28-2024 BLOOD CULTURE 2 Generic External Data Provider Start: 06-28-2024 BLOOD CULTURE 1 Generic External Data Provider Start: 02-29-2024 Mammography Generic Pr ovider Start: 12-08-2022 End: 12-08-2022 Colonoscopy MD Shaikh Ohara Work Phone: Start: 09-11-2020 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 Extract Wringer al Provider Start: 09-11-2020 EXTERNAL LAB External [...] 12-08-2032 Screening for malignant neoplasm of colon [facility] Start: 12-15-2026 End: 12-15-2026 Patient encounter procedure 12/15/2026 9:00 AM EST Office Visit [facility] [address] [place] [phone] Ramin Bowers PA [address] [place] [address] [facility] Start: 06-17-2025 End: 06-17-2025 Patient encounter procedure 06/17/2025 3:05 PM EDT Office Visit [facility] [address] [place] [address] Jessica Lazo MD [address] [place] [address] [facility] Start: 02-28-2025 Screening for malignant neoplasm of breast Mammogram [facility] Start: 01-13-2025 ambulatory Ambulatory Facility:[facility] Start: 01-09-2025 End: 01-09-2025 Patient encounter procedure 01/09/2025 1:40 PM EST Office Visit [facility] [address] [place] [phone] Kaylene López, ELECTRONIC TECHNOLOGIST [address] [place] [phone] [facility] Start: 01-09-2025 End: 01-09-2025 Patient encounter procedure 01/09/2025 8:30 AM EST Office Visit [facility] [address] [place] [phone] Aida Reese, RIKKI [address] [place] [address] [facility] Start: 01-02-2025 End: 01-02-2025 Patient encounter procedure 01/02/2025 2:40 PM EST Office Visit [facility] [address] [place] [phone] Kaylene López, ELECTRONIC TECHNOLOGIST [address] [place] [phone] Pulmonary emphysema, unspecified emphysema type (CMS/HCC) (Primary Dx); Chronic kidney disease, stage 3a (HCC) (CMS/HCC); Severe persistent asthma, uncomplicated (CMS/HCC); Morbid (severe) obesity due to excess calories (CMS/HCC); Body mass index (BMI) 40.0-44.9, adult (CMS/HCC); Chronic respiratory failure with hypoxia (CMS/HCC); Essential hypertension (CMS/HCC); Gastroesophageal reflux disease, unspecified whether esophagitis present; Malignant neoplasm of rectosigmoid junction (CMS/HCC); Urge incontinence [facility] Comment on above: Pulmonary emphysema, unspecified emphyse [...] 12/09/2024 2:30 PM EST [facility] [address] [place] [phone] Aida Reese NP [address] [place] [address] [facility] Start: 11-20-2024 End: 11-20-2024 Patient encounter procedure [facility] Start: 11-15-2024 End: 11-15-2024 Patient encounter procedure 11/15/2024 10:30 AM EST Office Visit [facility] [address] [place] [phone] Jayna Goode PA [address] [place] [address] [facility] Start: 11-12-2024 End: 11-12-2025 XR Chest 2 Views XR chest 2 views Imaging Routine Chronic obstructive pulmonary disease with acute lower respiratory infection (CMS/HCC) Expected: 11/12/2024, Expires: 11/12/2025 [facility] Work Phone: Comment on above: Expected: 11/12/2024, Expires: Start: 11-12-2024 End: 11-12-2024 Patient encounter procedure 11/12/2024 10:30 AM EST Office Visit [facility] [address] [place] [address] Aida Reese NP [address] [place] [address] Arrived [facility] Comment on above: Arrived Start: 10-11-2024 End: 10-11-2024 Patient encounter procedure 10/11/2024 8:50 AM EST Office Visit [facility] [address] [place] [address] Jayna Goode PA [address] [place] [address] 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 [facility] Comment on above: 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 Start: 10-09-2024 End: 10-09-2024 Patient encounter procedure 10/09/2024 9:00 AM EST Office Visit [facility] [address] [place] [address] Adia Reese, RIKKI [address] [place] [address] [facility] Start: 10-07-2024 End: 10-07-2024 Patient encounter procedure 10/07/2024 2:30 PM EST Office Visit [facility] [address] [place] [address] Aida Reese NP [address] [place] [address] Arrived [facility] Comment on above: Arrived Start: 09-12-2024 Phacoemulsification of cataract with intraocular lens implantation OR Cataract PHACO W/IOL/Vitrectomy (Left) [facility] Start: 08-19-2024 End: 08-19-2025 Clostridioides difficile toxin A+B tcdA+tcdB genes [Presence] in Stool by KAYLEE with probe detection Clostridium difficile,EIA Microbiology Routine Diarrhea, unspecified type Expected: 08/19/2024 (Approximate), Expires: 08/19/2025 [facility] Work Phone: Comment on above: Expected: 08/19/2024 (Approximate), Expi res: 08/19/2025 Start: 08-19-2024 End: 08-19-2024 Patient encounter procedure [facility] Comment on above: Arrived Start: 07-11-2024 End: 07-11-2025 CBC W Auto Differential panel - Blood CBC and differential Lab Routine Benign essential HTN (CMS/HCC) Chronic heart failure with preserved ejection fraction (CMS/HCC) Moderate mixed hyperlipidemia not requiring statin therapy (CMS/HCC) Morbid obesity with BMI of 40.0-44.9, adult (CMS/HCC) Expected: 07/11/2024 (Approximate), Expires: 07/11/2025 [facility] Comment on above: Expected: 07/11/2024 (Approximate), Expi res: 07/11/2025 Start: 07-11-2024 End: 07-11-2025 Comprehensive metabolic 2000 panel - Serum or Plasma Comprehensive metabolic panel Lab Routine Benign essential HTN (CMS/HCC) Chronic heart failure with preserved ejection fraction (CMS/HCC) Moderate mixed hyperlipidemia not requiring statin therapy (CMS/HCC) Morbid obesity with BMI of 40.0-44.9, adult (CMS/HCC) Expected: 07/11/2024 (Approximate), Expires: 07/11/2025 [facility] Comment on above: Expected: 07/11/2024 (Approximate), Expi res: 07/11/2025 Start: 07-11-2024 End: 07-11-2025 Lipid 1996 panel - Serum or Plasma Lipid panel Lab Routine Moderate mixed hyperlipidemia not requiring statin therapy (CMS/HCC) Expected: 07/11/2024 (Approximate), Expires: 07/11/2025 [facility] Comment on above: Expected: 07/11/2024 (Approximate), Expi res: 07/11/2025 Start: 07-11-2024 End: 07-11-2025 Microalbumin/Creatinine panel in random Urine Microalbumin / creatinine urine ratio Lab Routine Benign essential HTN (CMS/HCC) Expected: 07/11/2024 (Approximate), Expires: 07/11/2025 [facility] Work Phone: Comment on above: Expected: 07/11/2024 (Approximate), Expi res: 07/11/2025 Start: 07-11-2024 End: 07-11-2024 Patient encounter procedure [facility] Comment on above: Benign essential HTN (CMS/HCC) (Primary Dx); Chronic heart failure with preserved ejection fraction (CMS/HCC); Severe persistent asthma without complication (CMS/HCC) Start: 07-07-2024 Influenza vaccination Influenza Vaccine (#1) [facility] Start: 12-08-2022 [facility] Start: 07-07-2020 Influenza vaccination INFLUENZA (#1) [facility] Start: 2006 SHINGRIX VACCINE (1 of 2) SHINGRIX VACCINE (1 of 2) [facility] Start: 2006 Tuberculosis screening COLORECTAL CANCER SCREENING,SEE MODIFIER [facility] Start: 2001 DIABETES SCREEN DIABETES SCREEN [facility] Start: 2001 LIPID SCREEN LIPID SCREEN [facility] Start: 1996 Mammography MAMMOGRAM [facility] Start: 1986 HPV TESTING HPV TESTING [facility] Start: 1977 PAP TESTING PAP TESTING [facility] Start: 1975 Urine microalbumin profile DTAP,TDAP,TD (1 - Tdap) [facility] Start: 1974 HEPATITIS C SCREENING HEPATITIS C SCREENING [facility] Start: 1974 HIV SCREENING HIV SCREENING [facility] Start: 1956 Screening for malignant neoplasm of colon [facility] BLOOD CULTURE 1 BLOOD CULTURE 1 Lab Routine 08/08/2024 8:30 PM EDT [facility] BLOOD CULTURE 1 BLOOD CULTURE 1 Lab Routine 06/28/2024 8:20 PM EDT [facility] BLOOD CULTURE 2 BLOOD CULTURE 2 Lab Routine 08/08/2024 8:20 PM EDT [facility] BLOOD CULTURE 2 BLOOD CULTURE 2 Lab Routine 06/28/2024 8:21 PM EDT [facility] Dermatopathology exam Dermatopat hology exam Pathology and Cytology Timed Neoplasm of unspecified behavior of bone, soft tissue, and skin Release Upon Ordering for 1 Occurrences starting 10/11/2024 [facility] Work Phone: Comment on above: Release Upon Ordering for 1 Occurrences starting 10/11/2024 LOWER RESPIRATORY CULTURE LOWER RESPIRATORY CULTURE Lab Routine 08/12/2024 9:50 AM EDT [facility] Work Phone: Patient Education Colon Polypect shahram Hemorrhoids (DC) Diverticulosis (DC) [facility] Work Phone: [facility] Immunizations Immunization Date Immunization Notes Care Provider [facility] 09-06-2024 influenza, high dose seasonal, preservative-free Kaylene Lóepz ELECTRONIC TECHNOLOGIST Work Phone: [facility] 09-06-2024 influenza virus vaccine, unspecified formulation Aida Reese ELECTRONIC TECHNOLOGIST Work Phone: [facility] 08-26-2023 Influenza, High-dose Seasonal, Quadrivalent, Preservative Free Generic Provider [facility] 08-26-2023 influenza virus vaccine, unspecified formulation Generic Provider [facility] 08-18-2023 RSV, recombinant, protein subunit RSVpreF, adjuvant reconstitu, 120mcg/0.5mL, PF (Arexvy) Generic Provider [facility] 08-09-2023 Pneumococcal Conjuga te PCV 20 Generic Provider [facility] 11-01-2022 zoster vaccine recombinant Generic Provider [facility] 08-27-2022 zoster vaccine recombinant Generic Provider [facility] 08-04-2022 Influenza, High-dose Seasonal, Quadrivalent, Preservative Free Generic Provider [facility] 08-06-2021 Influenza, High-dose Seasonal, Quadrivalent, Preservative Free Generic Provider [facility] 08-07-2020 influenza, injectabl e, quadrivalent, preservative free Generic Provider [facility] 08-09-2019 influenza, injectabl e, quadrivalent, preservative free Generic Provider [facility] 10-19-2018 pneumococcal polysaccharide vaccine, 23 valent Generic Provider [facility] 08-08-2018 influenza, injectabl e, quadrivalent, preservative free Generic Provider [facility] 07-18-2018 Depo-Medrol 40 mg Rena Gint y Other [employer] Other 01-31-2018 Depo-Medrol 40 mg Rena Gint y Other [employer] Other 08-10-2017 influenza, injectabl e, quadrivalent, preservative free Generic Provider [facility] 08-09-2017 influenza virus vaccine, split virus (incl. purified surface antigen) Generic Provider [facility] 08-09-2017 influenza virus vaccine, unspecified formulation Steph Collier Work Phone: [facility] 08-09-2017 influenza, seasonal, injectable, preservative free Rena Gintchioma Other [employer] Other 09-02-2009 novel [id number], preservative-free, injectable Generic Provider [facility] Payers Date Payer Category Payer Medicare [id number] 2024 Medicare [id number] 2023 Medicare [employer] MEDICAR E [employer] [id number] 2023-Present [address] [place] [address] [id number] 2023 Medicare (Managed Care) 1.2. [id number] 2022 Unknown 2021 Medicare [id number] 2.16.840.1.254612.19 2019 Medicaid MEDICAID [facility] MEDICAID [id number] 2019-Present Medicaid [id number] 2016 Medicare MEDICARE MEDICAR E A AND B [id number] 2016-Present [place] Medicare [id number] .[id number] 1959 Unknown [id number] 1956 Unknown [id number] 2.16.840.1.821314.3.579.2.6 47 1956 Unknown [id number] 2.16.840.1.699656.3.579.2.5 93 1956 Unknown [id number] 2.16.840.1.395825.3.579.2.5 93 1956 Unknown [id number] 2.16.840.1.012070.3.579.2.5 93 1956 Unknown [id number] 2.16.840.1.879163.3.579.2.5 93 1956 Unknown [id number] 2.16.840.1.922667.3.579.2.5 93 1956 Unknown [id number] 2.16.840.1.756121.3.579.2.5 93 1956 Unknown [id number] 2.16.840.1.277248.3.579.2.5 93 1956 Unknown [id number] 2.16.840.1.455362.3.579.2.5 93 1956 Unknown [id number] 2.16.840.1.834917.3.579.2.5 93 1956 Unknown [id number] 2.16.840.1.308821.3.579.2.5 93 1956 Unknown [id number] 2.16.840.1.426310.3.579.2.5 93 1956 Unknown [id number] 2.16.840.1.586096.3.579.2.1 96 1956 Unknown [id number] 2.16.840.1.859465.3.579.2.1 96 1956 Unknown [id number] 2.16.840.1.076428.3.579.2.1 96 1956 Unknown [id number] 2.16.840.1.016336.3.579.2.1 96 1956 Unknown [id number] 2.16.840.1.276803.3.579.2.1 96 1956 Unknown [id number] 2.16.840.1.374724.3.579.2.1 96 1956 Unknown [id number] 2.16.840.1.570992.3.579.2.1 96 1956 Unknown [id number] 2.16.840.1.153029.3.579.2.1 96 1956 Unknown [id number] 2.16.840.1.509126.3.579.2.1 96 1956 Unknown [id number] 2.16.840.1.892497.3.579.2.7 27 1956 Unknown [id number] 2.16.840.1.220382.3.579.2.7 27 1956 Unknown [id number] 2.16.840.1.245363.3.579.2.7 27 1956 Unknown [id number] 2.16.840.1.458627.3.579.2.1 259 1956 Unknown [id number] 2.16.840.1.660253.3.579.2.1 259 1956 Unknown [id number] 2.16.840.1.357233.3.579.2.1 259 1956 Unknown [id number] 2.16.840.1.211092.3.579.2.1 259 1956 Unknown [id number] 2.16.840.1.926327.3.579.2.1 259 1956 Unknown [id number] 2.16.840.1.754701.3.579.2.1 259 1956 Unknown [id number] 2.16.840.1.019095.3.579.2.1 259 1956 Unknown [id number] 2.16.840.1.176173.3.579.2.1 259 1956 Unknown [id number] 2.16.840.1.807412.3.579.2.1 259 1956 Unknown [id number] 2.16.840.1.009231.3.579.2.1 259 1956 Unknown [id number] 2.16.840.1.012747.3.579.2.1 259 1956 Unknown [id number] 2.16.840.1.234644.3.579.2.1 259 1956 Unknown [id number] 2.16.840.1.577288.3.579.2.1 259 1956 Unknown [id number] 2.16.840.1.132678.3.579.2.1 259 1956 Unknown [id number] 2.16.840.1.733816.3.579.2.1 259 1956 Unknown [id number] 2.16.840.1.860783.3.579.2.1 1956 Unknown [id number] 2.16.840.1.215451.3.579.2.1 1956 Unknown [id number] 2.16.840.1.827178.3.579.2.1 1956 Unknown [id number] 2.16.840.1.699482.3.579.2.1 1956 Unknown [id number] 2.16.840.1.911134.3.579.2.1 259 Medicaid [id number] Medicare [id number] Self-pay Self Pay [id number] Unknown [id number] Social History Date Type Detail Facility Tobacco smoking stat us SDIS Unknown if ever smoked [facility] Start: 1955 Sex Assigned At Female F [facility] Start: 09-11-2020 End: 12-05-2023 Tobacco smoking status NHIS Never smoker [facility] Start: 09-11-2020 End: 12-05-2023 Tobacco use and exposure Never used [facility] Start: 09-11-2020 End: 01-02-2025 Alcohol intake Lifetime non-drinker (finding) [facility] Start: 09-11-2020 History SDOH Alcohol Frequency 1 [facility] [facility] Start: 1955 Sex Assigned At Not on file [facility] Start: 10-26-2023 End: 11-25-2024 Sex Assigned At [...] [facility] Start: 11-13-2024 Sex Female (finding) [facility] How hard is it for y [...] 10-15-2024 Functional Status N/A [facility] Clinical Notes 08-30-2021 to 01-02-2025 Kaylene López [...] conditions and weakness will send her to [facility] ER for evaluation DD: pneumonia, covid, flu, RSV Associated Problem(s): Chronic respiratory failure with hypoxia (CMS/HCC) Oxygen level 88-90% w walking, normal 94-95% w oxygen Associated Problem(s): Chronic obstructive pulmonary disease (COPD) (CMS/HCC) 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 [...] ferrous sulfate 325 mg, Daily with breakfast Zmkbsngacfh-Tvrffoeea-Cjuvbg (Trelegy Ellipta) 200-62.5-25 MCG/ACT aerosol powder 1 [...] 03/[address] LINN SPINAL FUSION 05/07/2003 [facility] TOTAL HIP ARTHROPLASTY Left 08/30/2019 REMOVED TOTAL [...] Visit Chronic obstructive pulmonary disease (COPD) (CMS/HCC) [facility] business intelligence etl developer Morbid (severe) obesity due to excess calories [...] conditions and weakness will send her to [facility] ER for evaluation DD: pneumonia, covid, flu, [...] Current meds: omeprazole Associated Problem(s): Essential hypertension ([facility]/HCC) DASH diet Limit caffeine Contact office if chest pain, pressure, dizziness, shortness of breath, swelling legs Recommend slow position changes Current meds: does not take any documented in this encounter [facility] 12-17-2024 History of Present illness Narrative [...] Visit: 6 months documented in this encounter [facility] 12-17-2024 History of Present illness Narrative Images from the original note were not included. HISTORY OF PRESENT ILLNESS: EST PT Diana Champion is an 69 y.o. @ female. EST PT HERE FOR YEARLY REACHECK RT TKA ~6YRS 2MO (10/18/18) - XRAY RT KNEE & RT HIP TODAY EPIC 12/17/24 XRAY [facility] 11/16/22 [facility]/18/20 NO BONE SCAN [...] ferrous sulfate 325 mg, Daily with breakfast Biogjibeqod-Twgjerryj-Wucnfw (Trelegy Ellipta) 200-62.5-25 MCG/ACT aerosol powder 1 [...] be necessary. Pt will consult with her Environmental Officer to see if she would be a [...] requiring urgent evaluation. documented in this encounter [facility] 12-13-2024 History of Present illness Narrative [...] skin of chest Chest - Medial (Center) [place] macule at the biopsy site. Destr of lesion Complexity: simple Destruction method: cryotherapy Informed consent: discussed and consent obtained Informed consent comment: The risks of the procedure were discussed, including, but not limited to risks of scarring, darker or site surveyor pigmentary changes, recurrence, infection, and incomplete removal [...] or tenderness. Additional details: Previous accession number: [id number] Discussed treatment options excision vs cryotherapy in detail. Patient opted for cryotherapy. Cryotherapy completed today, see procedure note. Return to clinic prior to next scheduled visit for any signs or symptoms of recurrence, reviewed the signs and symptoms. Recommended 6 month skin exam. Next Visit: as scheduled documented in this encounter [facility] 11-28-2024 History of Present illness Narrative Associated Problem(s): Chronic obstructive pulmonary disease (COPD) ([facility]) Was admitted to [facility] for COPD with acute exacerbation. Was treated [...] for Hospital Follow-up. HPI Was admitted to [facility] for COPD with acute exacerbation. Was treated [...] This Visit Chronic obstructive pulmonary disease (COPD) ([facility]) - Primary Was admitted to [facility] for COPD with acute exacerbation. Was treated [...] hospital follow up. documented in this encounter [facility] 11-28-2024 Instructions Aida Reese NP - 11/28/2024 1:[address] Mcclain's office to see if he wants to see you for hospital follow up sooner than January. Take and finish all medications as directed. documented in this encounter [facility] 11-12-2024 History of Present illness Narrative Associated Problem(s): Chronic obstructive pulmonary disease (COPD) (CMS/[facility]) 5 days ago woke up, body [...] 1 g tablet documented in this encounter [facility] 11-12-2024 Instructions Aida Reese NP - [...] NEAREST EMERGENCY DEPARTMENT. documented in this encounter [facility] 10-17-2024 Note Attestation signed by Emelia [...] Age: 69 y.o. : 1955 Account No.: [id number] Referring physician: Dr. Bo Mcclain Chief complaint: Recurreny pneumonia HPI Diana Champion is a 69 y.o. female with PMHx of chronic hypoxic respiratory failure on 3L home O2, tracheobronchomalacia who is presenting to clinic for follow up. Patient was previously referred by Dr. Bo Mcclain of [facility] in June of 2024. Patient had been having frequent pneumonias requiring hospitalization thought to be secondary to dynamic airway collapse. Therefore we performed bronchoscopy with airway inspection on 07/02/2024 which showed severe tracheobronchomalacia with mucous plugging. She subsequently followed up post procedure and different treatment options were discussed. 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 Her family history is positive for COPD [...] Diagnosis Date Allergic rhinitis Anemia Asthma Cancer ([facility]) Chronic heart failure with preserved ejection fraction ([facility]) Chronic hypoxic respiratory failure ([facility]) Chronic kidney disease COPD (chronic obstructive pulmonary disease) ([facility]) Coronary artery disease Depression Diabetes mellitus ([facility]) Dyspnea GERD (gastroesophageal reflux disease) Hyperlipidemia Lumbar spondylosis Other secondary pulmonary hypertension ([facility]) Pneumonia Primary osteoarthritis of right hip Pulmonary nodule Restless leg syndrome Spinal stenosis, lumbar region without neurogenic claudication Urge incontinence Past Surgical History: Procedure Laterality Date BACK SURGERY CARDIAC CATHETERIZATION Left FL GUIDED ASPIRATION OR INJECTION LARGE JOINT BILATERAL Bilateral 07/25/2019 [place] GUIDED ASPIRATION OR INJECTION LARGE JOINT BILATERAL KIMBEL CONVERSION FOOT SURGERY Right KNEE ARTHROPLASTY Right [...] mg by bessie (more content not included)... [facility] 10-15-2024 Hospital Discharge instructions Patient Education 10/15/2024 [...] your health care provider. General instructions Take zeev-csr-ravfwzr and prescription medicines only as told by [...] provider. Document Revised: 07/12/2021 Document Reviewed: 07/12/2021 [place] Orders Patient Education 2023 Xetal. Follow Up Care 10/11/2024 14:37:09 With:MAG BLOUNT PA-C, URL Address: [address] [place] [address] When:Within 3 Month(s) [facility] 10-15-2024 Note Urology Office/Clini c Note [...] 235.894 lb BMI: 40.27 Assessment/Plan CHF - [facility] CKD - Joana COPD/Pulm - Samsa/Omballi. Required [...] could include cysto, urodynamics, Botox, SNM. Orders: 76498 Measure Post Void residual urine and/or bladder capacity by US- non-imaging E&M of New Patient Moderate 45-59 Min 17520 Urine Culture Urnls Dip Stick Auto w/o Microscopy POC 09917 Follow-up With When Contact Information JOSE ALEJANDRO MICHAUD, MAG Hester, URL In 3 months [address] [place] [address] Additional Instructions: Patient Education Overactive [...] drop(s) Allergies f (more content not included)... [facility] Comment on above: Result Comment: Elec tronically [...] health care provider. General instructions ??? Take wjww-hzx-abdngnn and prescription medicines only as told by [...] drink, and whe (more content not included)... [facility] 10-11-2024 History of Present illness Narrative Images [...] pending biopsy results documented in this encounter [facility] 10-07-2024 History of Present illness Narrative [...] Morbid obesity with BMI of 40.0-44.9, adult ([facility]) Discussed with patient their BMI (actual, [...] Pulmonology- Dr. Mcclain and Dr. Yoo Cardiology- [facility] Ortho- Dr. Corrales Nephrology- Dr. Sky Was [...] Chronic kidney disease, stage III (moderate) (HCC) ([facility]) Follows with Dr. Bernard. Monitor CMP, avoid nephrotoxic agents. Morbid obesity with BMI of 40.0-44.9, adult (CMS/[facility]) Discussed with patient their BMI (actual, verses recommended). We have also discussed lifestyle modifications: attempts to perform physical activity as chronic conditions allow, also to monitor dietary intake: increasing protein/fruits/veggies and lowering carb intake (unless contraindicated). Limit sodas, juices, and sugary drinks. Urge incontinence - Primary Relevant Orders Ambulatory referral to Urology Chronic respiratory failure with hypoxia ([facility]) Following closely with Dr. Mcclain. Recent exacerbation [...] referral to Dermatology documented in this encounter [facility] 09-03-2024 Telephone encounter Note Pt requesting a refill on her Omeprazole BECK:08/19/2024 NOV:10/09/2024 [facility] 09-03-2024 Miscellaneous Notes Pt requesting a refill on her Omeprazole BECK:08/19/2024 NOV:10/09/2024 documented in this encounter [facility] 08-22-2024 Telephone encounter Note Patient called in saying you wanted her to do a stool sample, but she has not gotten an order for that, so she wasn't sure when she was supposed to do that. Also her pregabalin needs refilled but she said that [facility] had a hard time getting it in last time. MAYANK [facility] 08-22-2024 Miscellaneous Notes Patient called in [...] spelled that right) nurse phone number is [phone] or you can contact patient she said. JN documented in this encounter [facility] 08-19-2024 History of Present illness Narrative Last Monday left hospital and has been having diarrhea about 6 times a day. Images from the original note were not included. Subjective Patient ID: Diana Champion is a 69 y.o. female who presents for No chief complaint on file.. [facility] Hospital follow up; Was seen at [facility] 08/08/24-08/12/24 ARF; Was discharged home on Azithromycin [...] Orders Clostridium difficile,EIA documented in this encounter [facility] 08-19-2024 Instructions Aida Reese NP - 08/19/2024 11:30 AM EDT Continue Augmentin. Start taking OTC probiotics Have stool culture completed to test for C.Difficile. If negative continue ATB regimen as directed. If positive we will treat accordingly. Keep all follow up appointments as scheduled. documented in this encounter [facility] 08-13-2024 Note Gram Stain Evaluation This specimen is of good quality and is acceptable for routine [facility] 08-13-2024 Note [facility] GRAM STAIN EVALUATION bacterial culture. [facility] 08-13-2024 Telephone encounter Note Patient's home health [...] spelled that right) nurse phone number is [phone] or you can contact patient she said. JN [facility] 07-16-2024 Telephone encounter Note Pt informed of lab results and provider recommendations. Pt does do chair exercises four times a week and walks (with walker) but due to her health conditions she is limited. Pt is in a wheelchair with very limited ambulation -SCR [facility] 07-16-2024 Miscellaneous Notes Pt informed of [...] Aida Reese NP documented in this encounter [facility] 07-16-2024 Telephone encounter Note ----- Message [...] 9:29 AM EDT To: Aida Reese NP [facility] 07-11-2024 Note Attestation signed by Emelia [...] Age: 68 y.o. 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 Verbal consent to provide and bill this service was obtained on: 07/11/24 No signature was obtained due to the COVID-19 pandemic. Past Medical History: Diagnosis Date Allergic rhinitis Anemia Asthma Cancer ([facility]) Chronic heart failure with preserved ejection fraction ([facility]) Chronic hypoxic respiratory failure ([facility]) Chronic kidney disease COPD (chronic obstructive pulmonary disease) ([facility]) Coronary artery disease Depression Diabetes mellitus ([facility]) Dyspnea GERD (gastroesophageal reflux disease) Hyperlipidemia Lumbar spondylosis Other secondary pulmonary hypertension ([facility]) Pneumonia Primary osteoarthritis of right hip [...] by mouth every other day. Historical Provider, szgdmyeqpkh-tdawvazkv-ikwbxvld 100-62.5-25 mcg blister with device Historical Provider, [...] (Theragran-M) 9 mg (more content not included)... [facility] 07-11-2024 History of Present illness Narrative Associated [...] with preserved ejection fraction (CMS/HCC) Follows Cardiology- [facility] Was seen in May 2024 Lasix 20mg Associated Problem(s): Benign essential HTN (CMS/HCC) Currently not taking any medications. Bp is well controlled. Averages 120's-130's. Images from the original note were not included. Subjective Patient ID: Diana Champion is a 68 y.o. female who presents for Follow-up. HPI Specialists: Pulmonology- Dr. Mcclain and Dr. Yoo Cardiology- [facility] [place] Ortho- Dr. Corrales Nephrology- Dr. Sky Was seeing Urology 5 years ago for urinary retention. Now is having mixed incontinence. Does not want referral today, would like to revisit at next visit. Was seen on 06/12/24 for Hospital follow up. Is following closely with Pulmonology; Tracheobronchomalacia HTN: Currently not taking any medications. Bp is well controlled. Averages 120's-130's. HFpEF: Follows Cardiology- [facility] Was seen in May 2024 Lasix 20mg [...] with preserved ejection fraction (CMS/HCC) Follows Cardiology- [facility] Was seen in May 2024 Lasix 20mg [...] with Pulmonology; Tracheobronchomalacia documented in this encounter [facility] 07-11-2024 Instructions Aida Reese NP - 07/11/2024 8:30 AM EDT FASTING labs ordered. Nothing to eat or drink for 12 hours prior to blood draw. Water and black coffee ok. documented in this encounter [facility] 07-02-2024 Note Attestation signed by Ghulam [...] chronic cough POSTPROCEDURE DIAGNOSIS: Severe tracheobronchomalacia PROCEDURE PV DESIGN ENGINEER: Goran Canseco ATTENDING PHYSICIAN: Dr. Ghulam Petersen [...] by trained RN and supervised by the Environmental Officer. Continuous monitoring of heart rate, respiratory rate, [...] 1-2 weeks for treatment options for tracheobronchomalacia [facility] 07-02-2024 Note Patient: Yannick Champion Pre-sedation Evaluation: Sedation necessary for: Analgesia Requesting service: Pulmonary History of Present Illness: Refer to H &P [facility]/Current Medications: Reviewed Recent sedation/surgery (24 hours): No Review of Systems: Negative NPO guidelines met: Yes Physical Exam: Airway Mallampati: II Neck ROM: full Cardiovascular (-) murmur, friction rub, carotid bruits Dental Pulmonary (+) on nasal cannula (-) tachypnea, accessory muscle use (-) wheezes, rales Plan: ASA 3 Moderate Proceed with consious sedation for Bronchoscopy and BAL [facility] 06-25-2024 Note Attestation signed by Emelia Yoo [...] Age: 68 y.o. : 1955 Account No.: [id number] Referring physician: Dr. Bo Mcclain Chief complaint: Recurreny pneumonia HPI Diana Champion is a 68 y.o. female with PMHx of reportedly COPD, chronic hypoxic respiratory failure on 2L home O2 who is presenting to clinic as a new patient after being referred by Dr. Bo Baker of [facility]. 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 Her family history is positive for COPD [...] Past Medical History: Diagnosis Date Asthma Cancer ([facility]) COPD (chronic obstructive pulmonary disease) ([facility]) Coronary artery disease GERD (gastroesophageal reflux [...] mouth every other day. Yes Historical Provider, fjecpsthxhc-yupfmzpyn-fcexwrse 100-62.5-25 mcg blister with device Yes Historical [...] mEq ER ta (more content not included)... [facility] 05-13-2024 Note [facility] Cardiology Clinic Note Chief Complaint: Patient here for 1 year follow up CAD and hypertension. She was recently discharged from [facility] for Covid-19. She says hydrochlorothiazide was stopped [...] breath since then. She has seen her business intelligence etl developer. Her chest pain is noncardiac. She has [...] a past medical history of Asthma, Cancer (CMS/[facility]), COPD (chronic obstructive pulmonary disease) (CMS/HCC), Coronary [...] mouth every other day., Disp: , Rfl: vwarsheicaj-rgnfuyodm-dhbnzihz 100-62.5-25 mcg blister with device, , Disp: [...] a (more content not included)... [facility] 09-07-2023 Evaluation note Encounter Date Diagnosis Assessment Notes Sep, Hypomagnesemia (ICD-10 - E83.42) [employer] Other 10-23-2023 Evaluation note* Encounter Date Diagnosis Assessment Notes Treatment Notes Treatment Clinical Notes Aug, Nico hy kid w cr kid I-IV (ICD-10 - I12.9) [employer] Other 10-12-2023 Evaluation note* Encounter Date [...] PPI induced GI losses. Continue oral Magnesium [employer] Other 05-19-2023 NotePROCEDURE: XR HIP RT 2 3V W PELVIS HISTORY: Pain in right hip joint , chronic COMPARISON: XR L-spine 02/26/2019, XR left hip with pelvis 03/11/2017 FINDINGS: BONES:Complete loss of the right hip joint space with lpba-ic-rtzv articulation, subchondral sclerosis and cysts, and large periarticular degenerative osteophytes. No fracture or dislocation. Left hip replacement. Mechanical fusion of L5-S1 and moderate dextroscoliosis of lumbar spine. SOFT TISSUES:No visible soft tissue swelling. EFFUSION:None visible. OTHER: Negative. IMPRESSION: 1. Marked degenerative joint disease of the right hip; progressed since prior study. 2. Stable surgical changes. Electronically authenticated by: STEPH GRANADOS Date: 2023-03-24 12:55[facility]04-27-2023 Evaluation note* Encounter Date Diagnosis Assessment [...] PPI induced GI losses. Continue oral Magnesium [employer] Other 02-02-2023 Procedure [facility]01-04-2023 Evaluation note* Encounter Date Diagnosis Assessment Notes Treatment Notes Treatment Clinical Notes Nov, Hypokalemia (ICD-10 - E87.6) Nov, Hypomagnesemia (ICD-10 - E83.42) [employer] Other 10-04-2022 Evaluation note* Encounter Date [...] office does not accept her new insurance. [employer] Other 09-02-2022 Evaluation note* Encounter Date Diagnosis Assessment Notes Treatment Notes Treatment Clinical Notes Jul, History of colon cancer (ICD-10 - Z85.038) [employer] Other 01-12-2022 Evaluation note* Encounter Date [...] potassium wasting. I have prescribed oral potassium. [employer] Other 10-25-2021 Evaluation note* Encounter Date [...] Patient care instructions given in writting by [facility] Care At Home document [facility] [employer] Other Evaluation + Plan note Future Appointments Appointment Date:01/13/2025 09:40:00 AM Scheduled Provider:MAG BLOUNT PA-C Location:[facility] Appointment Type:URO Office Visit Diagnostic Tests Pending * Urine Culture 10/15/24 [facility] Evaluation + Plan note Future Appointments Appointment Date:01/13/2025 09:40:00 AM Scheduled Provider:MAG BLOUNT PA-C Location:[facility] Appointment Type:URO Office Visit [facility] evaluation noteNo InformationNort [email or web address] Other Evaluation note* Diagnosis Onset Date Resolution Status History of colon cancer acut e [facility] Work Phone: evaluoujtd note* Diagnosis Onset Date Resolution Status Hypokalemia acute Hypomagnesemia acute Stage 3 chronic kidney disease acute COVID noneactive Pneumonia noneactive [facility] Work Phone: evalutovwe note* Diagnosis Moderate persistent asthma with exacerbation [...] Unspecified essential hypertension JEANNE (acute kidney injury) (CMS/[facility]) Leukocytosis, unspecified type Chronic respiratory failure with hypoxia (CMS/HCC) Chronic bilateral low back pain without sciatica- Primary Vitamin D deficiency Chronic bilateral low back pain without sciatica- Primary Pneumonia due to infectious organism, unspecified laterality, unspecified part of lung- Primary Screening mammogram for breast cancer Chronic respiratory failure with hypoxia (CMS/HCC) Pulmonary emphysema, unspecified emphysema type (CMS/HCC) Essential hypertension ([facility]/HCC) Unspecified essential hypertension Morbid obesity with BMI of 40.0-44.9, adult ([facility]) Hospital discharge follow-up- Primary Other follow-up examination Chronic respiratory failure with hypoxia (CMS/HCC) Severe persistent asthma without complication ([facility]/HCC) Severe persistent asthma with acute exacerbation (CMS/HCC)- Primary Severe persistent asthma with exacerbation ([facility]/HCC)- Primary Unspecified asthma, with exacerbation Hospital discharge follow-up- Primary Other follow-up examination Chronic respiratory failure with hypoxia ([facility])- Primary Hospital discharge follow-up Other follow-up examination Benign essential HTN ([facility] [place]HCC[place] Chronic heart failure with preserved ejection fraction (CMS/HCC) Severe persistent asthma without complication (CMS/HCC) Moderate mixed hyperlipidemia not requiring statin therapy ([facility]) Morbid obesity with BMI of 40.0-44.9, adult ([facility]) Opioid use Chronic, continuous use of opioids Chronic back pain greater than 3 months duration Moderate persistent asthma with exacerbation (CMS/HCC)- Primary Unspecified asthma, with exacerbation Diarrhea, unspecified type documented in this encounter [facility] HealthcareEvaluation note* Diagnosis Moderate persistent asthma with exacerbation ([facility] [place]/HCC)- Primary Unspecified asthma, with exacerbation Non-recurrent acute suppurative otitis media of both ears without spontaneous rupture of tympanic membranes Colorectal cancer ([facility] [place]/HCC) Malignant neoplasm of colon, unspecified site Chronic heart failure with preserved ejection fraction (CMS/HCC) Pulmonary emphysema, unspecified emphysema type (CMS/HCC) Moderate episode of recurrent major depressive disorder (CMS/HCC)- Primary Moderate persistent asthma with exacerbation ([facility] [place]/HCC) Unspecified asthma, with exacerbation Medicare annual wellness visit, subsequent Severe persistent asthma with acute exacerbation ([facility] [place]/HCC)- Primary Hospital discharge follow-up Other follow-up examination Severe persistent asthma without complication (CMS/HCC)- Primary Essential hypertension (CMS/HCC) Unspecified essential hypertension JEANNE (acute kidney injury) ([facility]) Leukocytosis, unspecified type Chronic respiratory failure with hypoxia ([facility] [place]) Chronic bilateral low back pain without sciatica- Primary Vitamin D deficiency Chronic bilateral low back pain without sciatica- Primary Pneumonia due to infectious organism, unspecified laterality, unspecified part of lung- Primary Screening mammogram for breast cancer Chronic respiratory failure with hypoxia ([facility]) Pulmonary emphysema, unspecified emphysema type ([facility] [place]/HCC) Essential hypertension ([facility] [place]/HCC) Unspecified essential hypertension Morbid obesity with BMI of 40.0-44.9, adult ([facility] [place]) Hospital discharge follow-up- Primary Other follow-up examination Chronic respiratory failure with hypoxia ([facility] [place]) Severe persistent asthma without complication ([facility] [place]) Severe persistent asthma with acute exacerbation ([facility] [place])- Primary Severe persistent asthma with exacerbation ([facility])- Primary Unspecified asthma, with exacerbation Hospital discharge follow-up- Primary Other follow-up examination Chronic respiratory failure with hypoxia ([facility] [place])- Primary Hospital discharge follow-up Other follow-up examination Benign essential HTN ([facility] [place]) Chronic heart failure with preserved ejection fraction ([facility] [place]/HCC) Severe persistent asthma without complication ([facility] [place]/HCC) Moderate mixed hyperlipidemia not requiring statin therapy ([facility]) Morbid obesity with BMI of 40.0-44.9, adult ([facility] [place]) Opioid use Chronic, continuous use of opioids Chronic back pain greater than 3 months duration Restless leg syndrome Restless legs syndrome (RLS) documented in this encounter [facility] HealthcareEvaluation note* Diagnosis Moderate persistent asthma with exacerbation ([facility] [place])- Primary Unspecified asthma, with exacerbation Non-recurrent acute suppurative otitis media of both ears without spontaneous rupture of tympanic membranes Colorectal cancer ([facility]) Malignant neoplasm of colon, unspecified site Chronic heart failure with preserved ejection fraction ([facility] [place]) Pulmonary emphysema, unspecified emphysema type ([facility] [place]/HCC) Moderate episode of recurrent major depressive disorder ([facility] [place])- Primary Moderate persistent asthma with exacerbation ([facility] [place]) Unspecified asthma, with exacerbation Medicare annual wellness visit, subsequent Severe persistent asthma with acute exacerbation ([facility] [place])- Primary Hospital discharge follow-up Other follow-up examination Severe persistent asthma without complication ([facility] [place]/HCC)- Primary Essential hypertension ([facility] [place] Unspecified essential hypertension JEANNE (acute kidney injury) ([facility] [place]) Leukocytosis, unspecified type Chronic respiratory failure with hypoxia (CMS/HCC) Chronic bilateral low back pain without sciatica- Primary Vitamin D deficiency Chronic bilateral low back pain without sciatica- Primary Pneumonia due to infectious organism, unspecified laterality, unspecified part of lung- Primary Screening mammogram for breast cancer Chronic respiratory failure with hypoxia ([facility] [place]/HCC) Pulmonary emphysema, unspecified emphysema type ([facility] [place]/HCC) Essential hypertension ([facility] [place]/HCC) Unspecified essential hypertension Morbid obesity with BMI of 40.0-44.9, adult ([facility] [place]) Hospital discharge follow-up- Primary Other follow-up examination Chronic respiratory failure with hypoxia (CMS/HCC) Severe persistent asthma without complication ([facility] [place]/HCC) Severe persistent asthma with acute exacerbation ([facility] [place]/HCC)- Primary Severe persistent asthma with exacerbation ([facility] [place]/HCC)- Primary Unspecified asthma, with exacerbation Hospital discharge follow-up- Primary Other follow-up examination Chronic respiratory failure with hypoxia ([facility] [place])- Primary Hospital discharge follow-up Other follow-up examination Benign essential HTN ([facility] [place]) Chronic heart failure with preserved ejection fraction ([facility]/HCC) Severe persistent asthma without complication ([facility]/HCC) Moderate mixed hyperlipidemia not requiring statin therapy ([facility] [place]) Morbid obesity with BMI of 40.0-44.9, adult ([facility] [place]) Opioid use Chronic, continuous use of opioids Chronic back pain greater than 3 months duration Gastroesophageal reflux disease without esophagitis Esophageal reflux documented in this encounter [facility] HealthcareEvaluation noteNo assessment information availableSouthern [facility] Work Phone: Evaluation note* Diagnosis Moderate persistent asthma with exacerbation ([facility] [place]/HCC)- Primary Unspecified asthma, with exacerbation Non-recurrent acute suppurative otitis media of both ears without spontaneous rupture of tympanic membranes Colorectal cancer ([facility] [place]/HCC) Malignant neoplasm of colon, unspecified site Chronic heart failure with preserved ejection fraction ([facility] [place]/HCC) Pulmonary emphysema, unspecified emphysema type ([facility]/HCC) Moderate episode of recurrent major depressive disorder ([facility] [place]/HCC)- Primary Moderate persistent asthma with exacerbation ([facility] [place]/HCC) Unspecified asthma, with exacerbation Medicare annual wellness visit, subsequent Severe persistent asthma with acute exacerbation ([facility] [place]/HCC)- Primary Hospital discharge follow-up Other follow-up examination Severe persistent asthma without complication ([facility] [place]/HCC)- Primary Essential hypertension ([facility] [place]/HCC) Unspecified essential hypertension JEANNE (acute kidney injury) ([facility] [place]) Leukocytosis, unspecified type Chronic respiratory failure with hypoxia ([facility] [place]/HCC) Chronic bilateral low back pain without sciatica- Primary Vitamin D deficiency Chronic bilateral low back pain without sciatica- Primary Pneumonia due to infectious organism, unspecified laterality, unspecified part of lung- Primary Screening mammogram for breast cancer Chronic respiratory failure with hypoxia ([facility] [place]) Pulmonary emphysema, unspecified emphysema type ([facility] [place]/HCC) Essential hypertension ([facility] [place]/HCC) Unspecified essential hypertension Morbid obesity with BMI of 40.0-44.9, adult ([facility] [place]) Hospital discharge follow-up- Primary Other follow-up examination Chronic respiratory failure with hypoxia ([facility] [place]/HCC) Severe persistent asthma without complication ([facility] [place]/HCC) Severe persistent asthma with acute exacerbation ([facility] [place])- Primary Severe persistent asthma with exacerbation ([facility] [place])- Primary Unspecified asthma, with exacerbation Hospital discharge follow-up- Primary Other follow-up examination Chronic respiratory failure with hypoxia ([facility] [place])- Primary Hospital discharge follow-up Other follow-up examination Benign essential HTN ([facility] [place]) Chronic heart failure with preserved ejection fraction ([facility] [place]) Severe persistent asthma without complication ([facility]/HCC) Moderate mixed hyperlipidemia not requiring statin therapy ([facility] [place]) Morbid obesity with BMI of 40.0-44.9, adult ([facility] [place]) Opioid use Chronic, continuous use of opioids Chronic back pain greater than 3 months duration Vaginal guero- Primary Candidiasis of vulva and vagina documented in this encounter [facility] HealthcareEvaluation note* Diagnosis Moderate persistent asthma with exacerbation ([facility] [place]/HCC)- Primary Unspecified asthma, with exacerbation Non-recurrent acute suppurative otitis media of both ears without spontaneous rupture of tympanic membranes Colorectal cancer ([facility] [place]) Malignant neoplasm of colon, unspecified site Chronic heart failure with preserved ejection fraction ([facility] [place]/HCC) Pulmonary emphysema, unspecified emphysema type ([facility] [place]/HCC) Moderate episode of recurrent major depressive disorder ([facility] [place])- Primary Moderate persistent asthma with exacerbation ([facility] [place]) Unspecified asthma, with exacerbation Medicare annual wellness visit, subsequent Severe persistent asthma with acute exacerbation ([facility] [place])- Primary Hospital discharge follow-up Other follow-up examination Severe persistent asthma without complication ([facility] [place]/HCC)- Primary Essential hypertension ([facility] [place]/HCC) Unspecified essential hypertension JEANNE (acute kidney injury) ([facility] [place]) Leukocytosis, unspecified type Chronic respiratory failure with hypoxia ([facility] [place]/HCC) Chronic bilateral low back pain without sciatica- Primary Vitamin D deficiency Chronic bilateral low back pain without sciatica- Primary Pneumonia due to infectious organism, unspecified laterality, unspecified part of lung- Primary Screening mammogram for breast cancer Chronic respiratory failure with hypoxia ([facility] [place]/HCC) Pulmonary emphysema, unspecified emphysema type (CMS/HCC) Essential hypertension ([facility] [place]/HCC) Unspecified essential hypertension Morbid obesity with BMI of 40.0-44.9, adult ([facility] [place]) Hospital discharge follow-up- Primary Other follow-up examination Chronic respiratory failure with hypoxia ([facility] [place]/HCC[facility] Severe persistent asthma without complication ([facility] [place]/HCC) Severe persistent asthma with acute exacerbation ([facility] [place]/HCC)- Primary Severe persistent asthma with exacerbation ([facility] [place])- Primary Unspecified asthma, with exacerbation Hospital discharge follow-up- Primary Other follow-up examination Chronic respiratory failure with hypoxia ([facility] [place])- Primary Hospital discharge follow-up Other follow-up examination Benign essential HTN ([facility] [place]) Chronic heart failure with preserved ejection fraction ([facility] [place] Severe persistent asthma without complication ([facility] [place] Moderate mixed hyperlipidemia not requiring statin therapy ([facility] [place]) Morbid obesity with BMI of 40.0-44.9, adult ([facility] [place]) Opioid use Chronic, continuous use of opioids Chronic back pain greater than 3 months duration Restless leg syndrome Restless legs syndrome (RLS) documented in this encounter [facility] HealthcareEvaluation note* Diagnosis Moderate persistent asthma with exacerbation ([facility] [place]/HCC)- Primary Unspecified asthma, with exacerbation Non-recurrent acute suppurative otitis media of both ears without spontaneous rupture of tympanic membranes Colorectal cancer ([facility] [place]) Malignant neoplasm of colon, unspecified site Chronic heart failure with preserved ejection fraction ([facility] [place]) Pulmonary emphysema, unspecified emphysema type ([facility] [place]) Moderate episode of recurrent major depressive disorder ([facility] [place])- Primary Moderate persistent asthma with exacerbation ([facility] [place]) Unspecified asthma, with exacerbation Medicare annual wellness visit, subsequent Severe persistent asthma with acute exacerbation ([facility] [place])- Primary Hospital discharge follow-up Other follow-up examination Severe persistent asthma without complication ([facility] [place]/HCC)- Primary Essential hypertension ([facility] [place] Unspecified essential hypertension JEANNE (acute kidney injury) ([facility] [place]) Leukocytosis, unspecified type Chronic respiratory failure with hypoxia ([facility] [place]) Chronic bilateral low back pain without sciatica- Primary Vitamin D deficiency Chronic bilateral low back pain without sciatica- Primary Pneumonia due to infectious organism, unspecified laterality, unspecified part of lung- Primary Screening mammogram for breast cancer Chronic respiratory failure with hypoxia (CMS/HCC) Pulmonary emphysema, unspecified emphysema type (CMS/HCC) Essential hypertension (CMS/HCC) Unspecified essential hypertension Morbid obesity with BMI of 40.0-44.9, adult ([facility] [place]) Hospital discharge follow-up- Primary Other follow-up [...] Morbid obesity with BMI of 40.0-44.9, adult ([facility] [place]) Opioid use Chronic, continuous use of opioids Chronic back pain greater than 3 months duration Urge incontinence- Primary Morbid obesity with BMI of 40.0-44.9, adult ([facility] [place]) 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 Stage 3a chronic kidney disease (HCC) ([facility] [place]) Chronic respiratory failure with hypoxia (CMS/HCC) documented [...] Morbid obesity with BMI of 40.0-44.9, adult ([facility] [place]) Hospital discharge follow-up- Primary Other follow-up [...] Moderate mixed hyperlipidemia not requiring statin therapy ([facility] [place]/HCC) Morbid obesity with BMI of 40.0-44.9, adult ([facility] [place]) Opioid use Chronic, continuous use of opioids Chronic back pain greater than 3 months duration Urge incontinence- Primary Morbid obesity with BMI of 40.0-44.9, adult ([facility] [place]/HCC) 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 Stage 3a chronic kidney disease (HCC) (CMS/HCC) Chronic respiratory failure with hypoxia (CMS/HCC) Neoplasm of unspecified behavior of bone, soft tissue, and skin- Primary documented in this encounter [facility] HealthcareEvaluation note* Diagnosis Moderate persistent asthma [...] Morbid obesity with BMI of 40.0-44.9, adult ([facility] [place]) Hospital discharge follow-up- Primary Other follow-up [...] Moderate mixed hyperlipidemia not requiring statin therapy ([facility] [place]/HCC) Morbid obesity with BMI of 40.0-44.9, adult ([facility] [place]) Opioid use Chronic, continuous use of opioids Chronic back pain greater than 3 months duration Urge incontinence- Primary Morbid obesity with BMI of 40.0-44.9, adult ([facility] [place]) 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 Stage 3a chronic kidney disease (HCC) ([facility] [place]) Chronic respiratory failure with hypoxia ([facility] [place]) Urge incontinence documented in this encounter [facility] HealthcareEvaluation note* Diagnosis Moderate persistent asthma [...] depressive disorder (CMS/HCC) documented in this encounter [facility] HealthcareEvaluation note* Diagnosis Benign essential HTN (CMS/HCC)- Primary Chronic heart failure with preserved ejection fraction (CMS/HCC) Severe persistent asthma without complication (CMS/HCC) Moderate mixed hyperlipidemia not requiring statin therapy (CMS/HCC) Morbid obesity with BMI of 40.0-44.9, adult (CMS/HCC) documented in this encounter [facility] HealthcareEvaluation note* Diagnosis Chronic bilateral low back pain without sciatica documented in this encounter [facility] HealthcareEvaluation note* Diagnosis Moderate episode of recurrent major depressive disorder (HCC) ([facility] [place]) Urge incontinence documented in this encounter [facility] HealthcareEvaluation note* Diagnosis Moderate persistent asthma with exacerbation ([facility] [place]/HCC)- Primary Unspecified asthma, with exacerbation Non-recurrent acute suppurative otitis media of both ears without spontaneous rupture of tympanic membranes Colorectal cancer ([facility] [place]/HCC) Malignant neoplasm of colon, unspecified site Chronic heart failure with preserved ejection fraction ([facility] [place]) Pulmonary emphysema, unspecified emphysema type ([facility] [place]/HCC) Moderate episode of recurrent major depressive disorder (CMS/HCC)- Primary Moderate persistent asthma with exacerbation ([facility] [place]/HCC) Unspecified asthma, with exacerbation Medicare annual wellness visit, subsequent Severe persistent asthma with acute exacerbation ([facility] [place]/HCC)- Primary Hospital discharge follow-up Other follow-up examination Severe persistent asthma without complication (CMS/HCC)- Primary Essential hypertension ([facility]) Unspecified essential hypertension JEANNE (acute kidney injury) ([facility]) Leukocytosis, unspecified type Chronic respiratory failure with hypoxia ([facility]) Chronic bilateral low back pain without sciatica- Primary Vitamin D deficiency Chronic bilateral low back pain without sciatica- Primary Pneumonia due to infectious organism, unspecified laterality, unspecified part of lung- Primary Screening mammogram for breast cancer Chronic respiratory failure with hypoxia ([facility]) Pulmonary emphysema, unspecified emphysema type ([facility]/HCC) Essential hypertension ([facility]) Unspecified essential hypertension Morbid obesity with BMI of 40.0-44.9, adult ([facility]) Hospital discharge follow-up- Primary Other follow-up examination Chronic respiratory failure with hypoxia ([facility]/HCC) Severe persistent asthma without complication ([facility]/HCC) Severe persistent asthma with acute exacerbation ([facility]/HCC)- Primary Severe persistent asthma with exacerbation ([facility])- Primary Unspecified asthma, with exacerbation Hospital discharge follow-up- Primary Other follow-up examination Chronic respiratory failure with hypoxia ([facility])- Primary Hospital discharge follow-up Other follow-up examination Benign essential HTN ([facility]/HCC[facility] Chronic heart failure with preserved ejection fraction ([facility]/HCC) Severe persistent asthma without complication (CMS/HCC) Moderate mixed hyperlipidemia not requiring statin therapy ([facility]) Morbid obesity with BMI of 40.0-44.9, adult ([facility]) Opioid use Chronic, continuous use of [...] legs syndrome (RLS) documented in this encounter [facility] HealthcareEvaluation note* Diagnosis Moderate persistent asthma [...] Morbid obesity with BMI of 40.0-44.9, adult ([facility]) Hospital discharge follow-up- Primary Other follow-up [...] Moderate mixed hyperlipidemia not requiring statin therapy ([facility]/HCC) Morbid obesity with BMI of 40.0-44.9, adult ([facility]) Opioid use Chronic, continuous use of opioids Chronic back pain greater than 3 months duration Urge incontinence- Primary Morbid obesity with BMI of 40.0-44.9, adult ([facility]) 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 Stage 3a chronic kidney disease (HCC) ([facility]) Chronic respiratory failure with hypoxia ([facility]) Chronic obstructive pulmonary disease with acute lower respiratory infection ([facility])- Primary Primary HSV infection of mouth documented in this encounter [facility] HealthcareEvaluation note* Diagnosis Moderate persistent asthma with exacerbation ([facility])- Primary Unspecified asthma, with exacerbation Non-recurrent acute suppurative otitis media of both ears without spontaneous rupture of tympanic membranes Colorectal cancer ([facility]) Malignant neoplasm of colon, unspecified site Chronic heart failure with preserved ejection fraction ([facility]) Pulmonary emphysema, unspecified emphysema type ([facility]) Moderate episode of recurrent major depressive disorder ([facility])- Primary Moderate persistent asthma with exacerbation ([facility]) Unspecified asthma, with exacerbation Medicare annual wellness visit, subsequent Severe persistent asthma with acute exacerbation ([facility])- Primary Hospital discharge follow-up Other follow-up examination Severe persistent asthma without complication (CMS/HCC)- Primary Essential hypertension ([facility]/HCC) Unspecified essential hypertension JEANNE (acute kidney injury) ([facility]) Leukocytosis, unspecified type Chronic respiratory failure with hypoxia (CMS/HCC) Chronic bilateral low back pain without sciatica- Primary Vitamin D deficiency Chronic bilateral low back pain without sciatica- Primary Pneumonia due to infectious organism, unspecified laterality, unspecified part of lung- Primary Screening mammogram for breast cancer Chronic respiratory failure with hypoxia (CMS/HCC) Pulmonary emphysema, unspecified emphysema type (CMS/HCC) Essential hypertension ([facility]/HCC) Unspecified essential hypertension Morbid obesity with BMI of 40.0-44.9, adult ([facility]) Hospital discharge follow-up- Primary Other follow-up examination Chronic respiratory failure with hypoxia (CMS/HCC) Severe persistent asthma without complication (CMS/HCC) Severe persistent asthma with acute exacerbation (CMS/HCC)- Primary Severe persistent asthma with exacerbation ([facility]/HCC)- Primary Unspecified asthma, with exacerbation Hospital discharge follow-up- Primary Other follow-up examination Chronic respiratory failure with hypoxia (CMS/HCC)- Primary Hospital discharge follow-up Other follow-up examination Benign essential HTN ([facility]/HCC) Chronic heart failure with preserved ejection fraction (CMS/HCC) Severe persistent asthma without complication ([facility]/HCC) Moderate mixed hyperlipidemia not requiring statin therapy ([facility]/HCC) Morbid obesity with BMI of 40.0-44.9, adult ([facility]) Opioid use Chronic, continuous use of opioids Chronic back pain greater than 3 months duration Urge incontinence- Primary Morbid obesity with BMI of 40.0-44.9, adult ([facility]) 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 Stage 3a chronic kidney disease (HCC) ([facility]) Chronic respiratory failure [facility] hypoxia ([facility]) Chronic obstructive pulmonary disease with acute lower respiratory infection ([facility])- Primary Primary HSV infection of mouth Pulmonary emphysema, unspecified emphysema type ([facility])- Primary documented in this encounter [facility] HealthcareEvaluation note* Diagnosis Moderate persistent asthma with exacerbation ([facility])- Primary Unspecified asthma, with exacerbation Non-recurrent acute suppurative otitis media of both ears without spontaneous rupture of tympanic membranes Colorectal cancer ([facility]) Malignant neoplasm of colon, unspecified site Chronic heart failure with preserved ejection fraction ([facility]/HCC) Pulmonary emphysema, unspecified emphysema type ([facility]/HCC) Moderate episode of recurrent major depressive disorder ([facility])- Primary Moderate persistent asthma with exacerbation ([facility]) Unspecified asthma, with exacerbation Medicare annual wellness visit, subsequent Severe persistent asthma with acute exacerbation ([facility])- Primary Hospital discharge follow-up Other follow-up examination Severe persistent asthma without complication ([facility]/HCC)- Primary Essential hypertension ([facility] Unspecified essential hypertension JEANNE (acute kidney injury) ([facility]) Leukocytosis, unspecified type Chronic respiratory failure with hypoxia ([facility]/HCC) Chronic bilateral low back pain without sciatica- Primary Vitamin D deficiency Chronic bilateral low back pain without sciatica- Primary Pneumonia due to infectious organism, unspecified laterality, unspecified part of lung- Primary Screening mammogram for breast cancer Chronic respiratory failure with hypoxia (CMS/HCC) Pulmonary emphysema, unspecified emphysema type ([facility]/HCC) Essential hypertension ([facility]/HCC) Unspecified essential hypertension Morbid obesity with BMI of 40.0-44.9, adult ([facility]) Hospital discharge follow-up- Primary Other follow-up examination Chronic respiratory failure with hypoxia ([facility]/HCC) Severe persistent asthma without complication (CMS/HCC) Severe persistent asthma with acute exacerbation (CMS/HCC)- Primary Severe persistent asthma with exacerbation ([facility]/HCC)- Primary Unspecified asthma, with exacerbation Hospital discharge follow-up- Primary Other follow-up examination Chronic respiratory failure with hypoxia (CMS/HCC)- Primary Hospital discharge follow-up Other follow-up examination Benign essential HTN ([facility]/HCC) Chronic heart failure with preserved ejection fraction (CMS/HCC) Severe persistent asthma without complication ([facility]/HCC) Moderate mixed hyperlipidemia not requiring statin therapy ([facility]/HCC) Morbid obesity with BMI of 40.0-44.9, adult ([facility]) Opioid use Chronic, continuous use of opioids Chronic back pain greater than 3 months duration Urge incontinence- Primary Morbid obesity with BMI of 40.0-44.9, adult ([facility]) 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 Stage 3a chronic kidney disease (HCC) ([facility]) Chronic respiratory failure with hypoxia ([facility]) Chronic obstructive pulmonary disease with acute lower respiratory infection ([facility])- Primary Primary HSV infection of mouth Pulmonary emphysema, unspecified emphysema type ([facility])- Primary Gastroesophageal reflux disease without esophagitis Esophageal reflux documented in this encounter [facility] HealthcareEvaluation note* Diagnosis Moderate persistent asthma with exacerbation ([facility]/HCC)- Primary Unspecified asthma, with exacerbation Non-recurrent acute suppurative otitis media of both ears without spontaneous rupture of tympanic membranes Colorectal cancer ([facility]) Malignant neoplasm of colon, unspecified site Chronic heart failure with preserved ejection fraction ([facility]) Pulmonary emphysema, unspecified emphysema type ([facility]/HCC) Moderate episode of recurrent major depressive disorder ([facility])- Primary Moderate persistent asthma with exacerbation ([facility]) Unspecified asthma, with exacerbation Medicare annual wellness visit, subsequent Severe persistent asthma with acute exacerbation ([facility]/HCC)- Primary Hospital discharge follow-up Other follow-up examination Severe persistent asthma without complication ([facility]/HCC)- Primary Essential hypertension ([facility]/HCC) Unspecified essential hypertension JEANNE (acute kidney injury) ([facility]) Leukocytosis, unspecified type Chronic respiratory failure with hypoxia ([facility]/HCC) Chronic bilateral low back pain without sciatica- Primary Vitamin D deficiency Chronic bilateral low back pain without sciatica- Primary Pneumonia due to infectious organism, unspecified laterality, unspecified part of lung- Primary Screening mammogram for breast cancer Chronic respiratory failure with hypoxia ([facility]/HCC) Pulmonary emphysema, unspecified emphysema type (CMS/HCC) Essential hypertension ([facility]/HCC) Unspecified essential hypertension Morbid obesity with BMI of 40.0-44.9, adult ([facility]) Hospital discharge follow-up- Primary Other follow-up examination Chronic respiratory failure with hypoxia (CMS/HCC) Severe persistent asthma without complication (CMS/HCC) Severe persistent asthma with acute exacerbation (CMS/HCC)- Primary Severe persistent asthma with exacerbation ([facility]/HCC)- Primary Unspecified asthma, with exacerbation Hospital discharge follow-up- Primary Other follow-up examination Chronic respiratory failure with hypoxia (CMS/HCC)- Primary Hospital discharge follow-up Other follow-up examination Benign essential HTN (CMS/HCC) Chronic heart failure with preserved ejection fraction (CMS/HCC) Severe persistent asthma without complication (CMS/HCC) Moderate mixed hyperlipidemia not requiring statin therapy ([facility]) Morbid obesity with BMI of 40.0-44.9, adult ([facility]) Opioid use Chronic, continuous use of opioids Chronic back pain greater than 3 months duration Urge incontinence- Primary Morbid obesity with BMI of 40.0-44.9, adult ([facility]) 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 Stage 3a chronic kidney disease (HCC) ([facility]) Chronic respiratory failure with hypoxia ([facility]) Chronic obstructive pulmonary disease with acute lower respiratory infection ([facility])- Primary Primary HSV infection of mouth Pulmonary emphysema, unspecified emphysema type ([facility]/HCC)- Primary Restless leg syndrome Restless legs syndrome (RLS) documented in this encounter [facility] HealthcareEvaluation note* Diagnosis Moderate persistent asthma with exacerbation ([facility])- Primary Unspecified asthma, with exacerbation Non-recurrent acute suppurative otitis media of both ears without spontaneous rupture of tympanic membranes Colorectal cancer ([facility]/HCC) Malignant neoplasm of colon, unspecified site Chronic heart failure with preserved ejection fraction (CMS/HCC) Pulmonary emphysema, unspecified emphysema type ([facility]/HCC) Moderate episode of recurrent major depressive disorder ([facility]/HCC)- Primary Moderate persistent asthma with exacerbation ([facility]/HCC) Unspecified asthma, with exacerbation Medicare annual wellness visit, subsequent Severe persistent asthma with acute exacerbation (CMS/HCC)- Primary Hospital discharge follow-up Other follow-up examination Severe persistent asthma without complication ([facility]/HCC)- Primary Essential hypertension (CMS/HCC) Unspecified essential hypertension [...] Morbid obesity with BMI of 40.0-44.9, adult ([facility]/HCC) 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 [...] skin of chest documented in this encounter [facility] HealthcareEvaluation note* Diagnosis Moderate persistent asthma [...] subsequent Severe persistent asthma with acute exacerbation ([facility]/HCC)- Primary Hospital discharge follow-up Other follow-up examination Severe persistent asthma without complication (CMS/HCC)- Primary Essential hypertension (CMS/HCC) Unspecified essential hypertension JEANNE (acute kidney injury) ([facility]) Leukocytosis, unspecified type Chronic respiratory failure with hypoxia ([facility]/HCC) Chronic bilateral low back pain without sciatica- Primary Vitamin D deficiency Chronic bilateral low back pain without sciatica- Primary Pneumonia due to infectious organism, unspecified laterality, unspecified part of lung- Primary Screening mammogram for breast cancer Chronic respiratory failure with hypoxia (CMS/HCC) Pulmonary emphysema, unspecified emphysema type ([facility]/HCC) Essential hypertension ([facility]) Unspecified essential hypertension Morbid obesity with BMI of 40.0-44.9, adult ([facility]) Hospital discharge follow-up- Primary Other follow-up examination Chronic respiratory failure with hypoxia ([facility]/HCC) Severe persistent asthma without complication ([facility]/HCC) Severe persistent asthma with acute exacerbation ([facility]/HCC)- Primary Severe persistent asthma with exacerbation ([facility]/HCC)- Primary Unspecified asthma, with exacerbation Hospital discharge follow-up- Primary Other follow-up examination Chronic respiratory failure with hypoxia ([facility]/HCC)- Primary Hospital discharge follow-up Other follow-up examination Benign essential HTN ([facility]/HCC) Chronic heart failure with preserved ejection fraction (CMS/HCC) Severe persistent asthma without complication (CMS/HCC) Moderate mixed hyperlipidemia not requiring statin therapy ([facility]) Morbid obesity with BMI of 40.0-44.9, adult ([facility]) Opioid use Chronic, continuous use of opioids Chronic back pain greater than 3 months duration Urge incontinence- Primary Morbid obesity with BMI of 40.0-44.9, adult ([facility]) 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 Stage 3a chronic kidney disease (HCC) ([facility]/HCC) Chronic respiratory failure with hypoxia ([facility]/HCC) Chronic obstructive pulmonary disease with acute lower respiratory infection ([facility]/HCC)- Primary Primary HSV infection of mouth Pulmonary emphysema, unspecified emphysema type (CMS/HCC)- Primary Moderate episode of recurrent major depressive disorder ([facility]) Acute pain of right knee- Primary History of total right knee replacement documented in this encounter [facility] HealthcareEvaluation note* Diagnosis Moderate persistent asthma with exacerbation (CMS/HCC)- Primary Unspecified asthma, with exacerbation Non-recurrent acute suppurative otitis media of both ears without spontaneous rupture of tympanic membranes Colorectal cancer ([facility]/HCC) Malignant neoplasm of colon, unspecified site Chronic heart failure with preserved ejection fraction (CMS/HCC) Pulmonary emphysema, unspecified emphysema type (CMS/HCC) Moderate episode of recurrent major depressive disorder ([facility]/HCC)- Primary Moderate persistent asthma with exacerbation ([facility]/HCC) Unspecified asthma, with exacerbation Medicare annual wellness visit, subsequent Severe persistent asthma with acute exacerbation ([facility]/HCC)- Primary Hospital discharge follow-up Other follow-up examination Severe persistent asthma without complication (CMS/HCC)- Primary Essential hypertension ([facility]/HCC) Unspecified essential hypertension JEANNE (acute kidney injury) ([facility]) Leukocytosis, unspecified type Chronic respiratory failure with hypoxia ([facility]/HCC) Chronic bilateral low back pain without sciatica- Primary Vitamin D deficiency Chronic bilateral low back pain without sciatica- Primary Pneumonia due to infectious organism, unspecified laterality, unspecified part of lung- Primary Screening mammogram for breast cancer Chronic respiratory failure with hypoxia (CMS/HCC) Pulmonary emphysema, unspecified emphysema type ([facility]/HCC) Essential hypertension ([facility]) Unspecified essential hypertension Morbid obesity with BMI of 40.0-44.9, adult ([facility]) Hospital discharge follow-up- Primary Other follow-up examination Chronic respiratory failure with hypoxia ([facility]/HCC) Severe persistent asthma without complication ([facility]/HCC) Severe persistent asthma with acute exacerbation ([facility]/HCC)- Primary Severe persistent asthma with exacerbation ([facility]/HCC)- Primary Unspecified asthma, with exacerbation Hospital discharge follow-up- Primary Other follow-up examination Chronic respiratory failure with hypoxia ([facility]/HCC)- Primary Hospital discharge follow-up Other follow-up examination Benign essential HTN ([facility]/HCC) Chronic heart failure with preserved ejection fraction ([facility]/HCC) Severe persistent asthma without complication ([facility]/HCC) Moderate mixed hyperlipidemia not requiring statin therapy ([facility]) Morbid obesity with BMI of 40.0-44.9, adult ([facility]) Opioid use Chronic, continuous use of opioids Chronic back pain greater than 3 months duration Urge incontinence- Primary Morbid obesity with BMI of 40.0-44.9, adult ([facility]) Neoplasm of uncertain behavior of chest [...] of right hip documented in this encounter [facility] HealthcareEvaluation note* Diagnosis Moderate persistent asthma [...] subsequent Severe persistent asthma with acute exacerbation ([facility]/HCC)- Primary Hospital discharge follow-up Other follow-up examination Severe persistent asthma without complication (CMS/HCC)- Primary Essential hypertension (CMS/HCC) Unspecified essential hypertension JEANNE (acute kidney injury) (CMS/[facility]) Leukocytosis, unspecified type Chronic respiratory failure with hypoxia (CMS/HCC) Chronic bilateral low back pain without sciatica- Primary Vitamin D deficiency Chronic bilateral low back pain without sciatica- Primary Pneumonia due to infectious organism, unspecified laterality, unspecified part of lung- Primary Screening mammogram for breast cancer Chronic respiratory failure with hypoxia (CMS/HCC) Pulmonary emphysema, unspecified emphysema type (CMS/HCC) Essential hypertension ([facility]/HCC) Unspecified essential hypertension Morbid obesity with BMI of 40.0-44.9, adult ([facility]) Hospital discharge follow-up- Primary Other follow-up examination Chronic respiratory failure with hypoxia (CMS/HCC) Severe persistent asthma without complication (CMS/HCC) Severe persistent asthma with acute exacerbation (CMS/HCC)- Primary Severe persistent asthma with exacerbation ([facility]/HCC)- Primary Unspecified asthma, with exacerbation Hospital discharge follow-up- Primary Other follow-up examination Chronic respiratory failure with hypoxia (CMS/HCC)- Primary Hospital discharge follow-up Other follow-up examination Benign essential HTN (CMS/HCC) Chronic heart failure with preserved ejection fraction (CMS/HCC) Severe persistent asthma without complication (CMS/HCC) Moderate mixed hyperlipidemia not requiring statin therapy (CMS/HCC) Morbid obesity with BMI of 40.0-44.9, adult ([facility]/HCC) Opioid use Chronic, continuous use of opioids Chronic back pain greater than 3 months duration Urge incontinence- Primary Morbid obesity with BMI of 40.0-44.9, adult ([facility]/HCC) 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 [...] subsequent Severe persistent asthma with acute exacerbation ([facility]/HCC)- Primary Hospital discharge follow-up Other follow-up examination [...] Morbid obesity with BMI of 40.0-44.9, adult ([facility]) Hospital discharge follow-up- Primary Other follow-up [...] Morbid obesity with BMI of 40.0-44.9, adult ([facility]) Opioid use Chronic, continuous use of opioids Chronic back pain greater than 3 months duration Urge incontinence- Primary Morbid obesity with BMI of 40.0-44.9, adult ([facility]) 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 Stage 3a chronic kidney disease (HCC) ([facility]) Chronic respiratory failure with hypoxia ([facility]) Chronic obstructive pulmonary disease with acute lower respiratory infection ([facility])- Primary Primary HSV infection of mouth Pulmonary emphysema, unspecified emphysema type ([facility]/HCC)- Primary Flu-like symptoms- Primary Morbid (severe) obesity due to excess calories ([facility]) Body mass index (BMI) 40.0-44.9, adult ([facility]) Pulmonary emphysema, unspecified emphysema type ([facility]/HCC) Chronic respiratory failure with hypoxia ([facility]) Essential hypertension ([facility]) Unspecified essential hypertension documented in this encounter [...] IN 08/2019 Hospitalization History HIP REVISION 03/2020 [employer] Other History general Narrative - Reported* Type [...] Hospitalization History COVID X 2 WEEKS 04/2023 [employer] Other Hospital course Narrative No data available for this section [facility] Hospital Discharge instructions Additional Instructions DISCHARGE [...] if you have any problems. -Office number [phone] Work Phone: Hospital Discharge instructions No data available for this section [facility] Progress note No data available for this section [facility] Advance Directives Advance Directive Response [...] or prosecute any alcohol or drug abuse patient.[facility] the event this information is protected by the Federal Confidentiality of Alcohol and Drug Abuse Patient Records regulations: The Federal rules restrict any use of the information to criminally investigate or prosecute any alcohol or drug abuse patient.[facility] the event this information is protected by the Federal Confidentiality of Alcohol and Drug Abuse Patient Records regulations: The Federal rules restrict any use of the information to criminally investigate or prosecute any alcohol or drug abuse patient.[facility] the event this information is protected by the Federal Confidentiality of Alcohol and Drug Abuse Patient Records regulations: The Federal rules restrict any use of the information to criminally investigate or prosecute any alcohol or drug abuse patient.[facility] INFORMATION SOURCE (unrecogn ized section and content) DATE CREATED AUTHOR 03/03/[address] [facility] DATE CREATED AUTHOR AUTHOR'S ORGANIZ ATION 04/17/2023 [facility] DATE CREATED AUTHOR AUTHOR'S ORGANIZ ATION 07/21/2024 [facility] DATE CREATED AUTHOR AUTHOR'S ORGANIZ ATION 10/18/2024 [facility] DATE CREATED AUTHOR AUTHOR'S ORGANIZ ATION 10/20/2024 [facility] DATE CREATED AUTHOR AUTHOR'S ORGANIZ ATION 10/21/2024 [facility] DATE CREATED AUTHOR AUTHOR'S ORGANIZ ATION 10/29/2024 [facility] DATE CREATED AUTHOR AUTHOR'S ORGANIZ ATION 11/18/2024 [facility] DATE CREATED AUTHOR AUTHOR'S ORGANIZ ATION 12/22/2024 [facility] EPIC REASON FOR VISIT [...] of uncertain behavior of chest wall Procedures CT OFFICE/OUTPATIENT [facility] HIGH MDM Aida Reese, ELECTRONIC TECHNOLOGIST [address] [place] [address] Phone: tel: fax: Elena Martinez, HOSPITAL ACCOUNT LIAISON-MANAGER [employer] [address] [place] [address] Phone: tel: fax: Referral ID Status Reason Start Date Expiration Date V isits Requested Visits Authorized [id number] Closed Specialty Services Required 10/07/2024 04/05/2025 1 [...] March 14, 2024 End: March 14, 2024 Italian Teacher Relationship Specialty Start Date End Date Tapan Zazueta MD [address] [place] [address] PCP - General Family Medicine 06/10/24 Ariella Mathis DO [address] [place] [address] Referring Physician Neurology 01/02/24 Aida Reese NP [address] [place] [address] Nurse Practitioner Family Medicine 06/10/24 Italian Teacher Relationship Specialty Start Date End Date Tapan Zazueta MD [address] [place] [address] PCP - General Family Medicine 06/10/24 Ariella Mathis DO [address] [place] [address] Referring Physician Neurology 01/02/24 Aida Reese NP [address] [place] [address] Nurse Practitioner Family Medicine 06/10/24 Italian Teacher Relationship Specialty Start Date End Date Tapan Zazueta MD [address] [place] [address] PCP - General Family Medicine 06/10/24 Ariella Mathis DO [address] [place] [address] Referring Physician Neurology 01/02/24 Aida Reese NP [address] [place] [address] Nurse Practitioner Family Medicine 06/10/24 Italian Teacher Relationship Specialty Start Date End Date Tapan Zazueta MD [address] [place] [address] PCP - General Family Medicine 06/10/24 Ariella Mathis DO [address] [place] [address] Referring Physician Neurology 01/02/24 Aida Reese NP [address] [place] [address] Nurse Practitioner Family Medicine 06/10/24 Italian Teacher Relationship Specialty Start Date End Date Tapan Zazueta MD [address] [place] [address] PCP - General Family Medicine 06/10/24 Ariella Mathis DO [address] [place] [address] Referring Physician Neurology 01/02/24 Aida Reese NP [address] [place] [address] Nurse Practitioner Family Medicine 06/10/24 Team Status: Active Member Role Status Dates Aida Reese ELECTRONIC TECHNOLOGIST-C Primary Care Provider Ac tive Team Status: [...] September 05, 2024 End: September 05, 2024 Italian Teacher Relationship Specialty Start Date End Date Tapan Zazueta MD [address] [place] [address] PCP - General Family Medicine 06/10/24 Ariella Mathis DO [address] [place] [address] Referring Physician Neurology 01/02/24 Aida Reese NP [address] [place] [address] Nurse Practitioner Family Medicine 06/10/24 Italian Teacher Relationship Specialty Start Date End Date Tapan Zazueta MD [address] [place] [address] PCP - General Family Medicine 06/10/24 Ariella Mathis DO [address] [place] [address] Referring Physician Neurology 01/02/24 Aida Reese NP [address] [place] [address] Nurse Practitioner Family Medicine 06/10/24 Italian Teacher Relationship Specialty Start Date End Date Tapan Zazueta MD [address] [place] [address] PCP - General Family Medicine 06/10/24 Ariella Mathis DO [address] [place] [address] Referring Physician Neurology 01/02/24 Aida Reese NP [address] [place] [address] Nurse Practitioner Family Medicine 06/10/24 Italian Teacher Relationship Specialty Start Date End Date Tapan Zazueta MD [address] [place] [address] PCP - General Family Medicine 06/10/24 Ariella Mathis DO [address] [place] [address] Referring Physician Neurology 01/02/24 Aida Reese NP [address] [place] [address] Nurse Practitioner Family Medicine 06/10/24 Italian Teacher Relationship Specialty Start Date End Date Tapan Zazueta MD [address] [place] [address] PCP - General Family Medicine 06/10/24 Ariella Mathis DO [address] [place] [address] Referring Physician Neurology 01/02/24 Aida Reese NP [address] [place] [address] Nurse Practitioner Family Medicine 06/10/24 Italian Teacher Relationship Specialty Start Date End Date Tapan Zazueta MD [address] [place] [address] PCP - General Family Medicine 06/10/24 Ariella Mathis DO [address] [place] [address] Referring Physician Neurology 01/02/24 Aida Reese NP [address] [place] [address] Nurse Practitioner Family Medicine 06/10/24 Italian Teacher Relationship Specialty Start Date End Date Tapan Zazueta MD [address] [place] [address] PCP - General Family Medicine 06/10/24 Ariella Mathis DO [address] [place] [address] Referring Physician Neurology 01/02/24 Aida Reese NP [address] [place] [address] Nurse Practitioner Family Medicine 06/10/24 Italian Teacher Relationship Specialty Start Date End Date Tapan Zazueta MD [address] [place] [address] PCP - General Family Medicine 06/10/24 Ariella Mathis DO [address] [place] [address] Referring Physician Neurology 01/02/24 Aida Reese NP [address] [place] [address] Nurse Practitioner Family Medicine 06/10/24 Italian Teacher Relationship Specialty Start Date End Date Tapan Zazueta MD [address] [place] [address] PCP - General Family Medicine 06/10/24 Ariella Mathis DO [address] [place] [address] Referring Physician Neurology 01/02/24 Aida Reese NP [address] [place] [address] Nurse Practitioner Family Medicine 06/10/24 Italian Teacher Relationship Specialty Start Date End Date Tapan Zazueta MD [address] [place] [address] PCP - General Family Medicine 06/10/24 Ariella Mathis DO [address] [place] [address] Referring Physician Neurology 01/02/24 Aida Reese NP [address] [place] [address] Nurse Practitioner Family Medicine 06/10/24 Italian Teacher Relationship Specialty Start Date End Date Tapan Zazueta MD [address] [place] [address] PCP - General Family Medicine 06/10/24 Ariella Mathis DO [address] [place] [address] Referring Physician Neurology 01/02/24 Aida Reese NP [address] [place] [address] Nurse Practitioner Family Medicine 06/10/24 Italian Teacher Relationship Specialty Start Date End Date Tapan Zazueta MD [address] [place] [address] PCP - General Family Medicine 06/10/24 Ariella Mathis DO [address] [place] [address] Referring Physician Neurology 01/02/24 Aida Reese NP [address] [place] [address] Nurse Practitioner Family Medicine 06/10/24 Italian Teacher Relationship Specialty Start Date End Date Tapan Zazueta MD [address] [place] [address] PCP - General Family Medicine 06/10/24 Ariella Mathis DO [address] [place] [address] Referring Physician Neurology 01/02/24 Aida Reese NP [address] [place] [place] [address] Nurse Practitioner Family Medicine 06/10/24 Italian Teacher Relationship Specialty Start Date End Date Tapan Zazueta MD [address] [place] [address] PCP - General Family Medicine 06/10/24 Ariella Mathis DO [address] [place] [address] Referring Physician Neurology 01/02/24 Aida Reese NP [address] [place] [address] Nurse Practitioner Family Medicine 06/10/24 Italian Teacher Relationship Specialty Start Date End Date Tapan Zazueta MD [address] [place] [address] PCP - General Family Medicine 06/10/24 Ariella Mathis DO [address] [place] [address] Referring Physician Neurology 01/02/24 Aida Reese NP [address] [place] [place] [address] Nurse Practitioner Family Medicine 06/10/24 Team Status: Inactive Member Role Status Dates Allan Lacey MD Attending Provider Active Start: September 12, 2024 End: September 12, 2024 Aida Reese NP-C Primary Care Provider Ac tive Start: September 12, 2024 End: September 12, 2024 Italian Teacher Relationship Specialty Start Date End Date Tapan Zazueta MD [address] [place] [address] PCP - General Family Medicine 06/10/24 Ariella Mathis DO [address] [place] [address] Referring Physician Neurology 01/02/24 Aida Reese NP [address] [place] [place] [address] Nurse Practitioner Family Medicine 06/10/24 Italian Teacher Relationship Specialty Start Date End Date Tapan Zazueta MD [address] [place] [address] PCP - General Family Medicine 06/10/24 Ariella Mathis DO [address] [place] [address] Referring Physician Neurology 01/02/24 Aida Reese NP [address] [place] [address] Nurse Practitioner Family Medicine 06/10/24 Italian Teacher Relationship Specialty Start Date End Date Tapan Zazueta MD [address] [place] [address] PCP - General Family Medicine 06/10/24 Ariella Mathis DO [address] [place] [address] Referring Physician Neurology 01/02/24 Aida Reese NP [address] [place] [address] Nurse Practitioner Family Medicine 06/10/24 Italian Teacher Relationship Specialty Start Date End Date Tapan Zazueta MD [address] [place] [address] PCP - General Family Medicine 06/10/24 Ariella Mathis DO [address] [place] [address] Referring Physician Neurology 01/02/24 Aida Reese NP [address] [place] [address] Nurse Practitioner Family Medicine 06/10/24 Italian Teacher Relationship Specialty Start Date End Date Tapan Zazueta MD [address] [place] [address] PCP - General Family Medicine 06/10/24 Ariella Mathis DO [address] [place] [address] Referring Physician Neurology 01/02/24 Aida Reese NP [address] [place] [address] Nurse Practitioner Family Medicine 06/10/24 Italian Teacher Relationship Specialty Start Date End Date Tapan Zazueta MD [address] [place] [address] PCP - General Family Medicine 06/10/24 Ariella Mathis DO [address] [place], [place] [address] Referring Physician Neurology 01/02/24 Aida Reese NP [address] [place] [address] Nurse Practitioner Family Medicine 06/10/24 Italian Teacher Relationship Specialty Start Date End Date Tapan Zazueta MD [address] [place] [address] PCP - General Family Medicine 06/10/24 Ariella Mathis DO [address] [place] [address] Referring Physician Neurology 01/02/24 Aida Reese NP [address] [place] [address] Nurse Practitioner Family Medicine 06/10/24 Goals (unrecognized [...] BASED ON THE PRIMARY CLINICAL RECORDS. [facility]. provides no warranty or guarantee of the accuracy or completeness of information in this document.
--- NOTE | 2025-01-03 09:44 | SWNOTE1 ---
SW met with pt to discuss dc needs. Pt lives at her apartment and her son lives with her. Pt does wear home oxygen continuous at 3 liters from [facility]. Pt does have a walker and wheelchair at home. SW and pt spoke about home health services as she has had in past, but pt does not feel she needs it at this time. She stated she was doing pretty good until Monday, but now has pneumonia again. Pt voiced no concerns about discharge at this time. SW to follow as needed. No anticipated discharge needs.
[2025-01-03] MEDS: BUDESONIDE 0.5 MG/2 ML AMPULE NEB IH ×2 (11:04→22:46)
[2025-01-03] MEDS: AZITHROMYCIN 500 MG in 0.9 % SODIUM CHLORIDE 250 ML 250 MG IV (15:12)
[2025-01-03] MEDS: CEFTRIAXONE 1,000 MG in 0.9 % SODIUM CHLORIDE 50 ML 100 MG IV (16:21)
[2025-01-03] MEDS: ACETAMINOPHEN 325 MG TABLET 650 MG PO (19:30)
[2025-01-03] MEDS: TRAZODONE HCL 50 MG TABLET 100 MG PO (21:39)
[2025-01-03] MEDS: LATANOPROST 0.005% 2.5 ML BOTTLE 1 DROP OP (21:39)
[2025-01-04] VITALS (19 sets, daily range): BP systolic 138–163; BP diastolic 74–89; PULSE 69–95; TEMP 36.4–37; O2SAT 82–94
[2025-01-04] MEDS: METHYLPREDNISOLONE SOD SUCC PF 40 MG/ML VIAL IVP ×4 (01:00→17:19)
[2025-01-04] MEDS: IPRATROPIUM/ALBUTEROL SULFATE 3 ML AMPUL.NEB IH ×4 (05:41→23:23)
[2025-01-04 06:02] LABS: Basophils Percent Auto 0.1 % (0.2-2.0); Hematocrit 33.2 % (36.0-48.0); Hemoglobin 10.6 g/dL (12.0-16.0); Immature Granulocytes Pct Auto 2.1 % (0.0-0.5); Lymphocytes Absolute Auto 0.6 10^3/uL (1.2-3.8); Lymphocytes Percent Auto 6.3 % (20.5-60.0); Mean Corpuscular HGB Conc 31.9 g/dL (29.9-35.2); Mean Corpuscular Hemoglobin 30.1 pg (26.7-34.0); Mean Corpuscular Volume 94.3 fL (81.0-99.0); Mean Platelet Volume 8.9 fL (9.5-13.5); Monocytes Absolute Auto 0.3 10^3/uL (0.3-0.8); Monocytes Percent Auto 3.5 % (1.7-12.0); Neutrophils Absolute Auto 8.2 10^3/uL (1.4-6.5); Platelet Count 254 10^3/uL (150-450); Red Blood Count 3.52 10^6/uL (4.20-5.40); Red Cell Distribution Width 14.1 % (11.0-15.0); White Blood Count 9.3 10^3/uL (4.0-11.0)
[2025-01-04 06:27] LABS: Alanine Aminotransferase 12 U/L (14-59); Albumin Globulin Ratio 0.6; Albumin Level 2.3 g/dL (3.4-5.0); Alkaline Phosphatase 92 U/L (46-116); Anion Gap 11.1; Aspartate Amino Transferase 11 U/L (15-37); BUN Creatinine Ratio 15.9; Bilirubin Total 0.1 mg/dL (0.2-1.0); Calcium 8.7 mg/dL (8.5-10.1); Carbon Dioxide 30.5 mmol/L (21.0-32.0); Chloride 105 mmol/L (98-107); Estimated GFR (African America >60 (>=60 mL/min/1.73m^2); Estimated GFR (Non-African Ame 51 (>=60 mL/min/1.73m^2); Glucose 273 mg/dL (74-106); Potassium 4.6 mmol/L (3.5-5.1); Sodium 142 mmol/L (136-145); Total Protein 6.3 g/dL (6.4-8.2)
[2025-01-04] MEDS: BACLOFEN 10 MG TABLET PO ×3 (06:49→21:16)
[2025-01-04] MEDS: MONTELUKAST SODIUM 10 MG TABLET PO (08:12)
[2025-01-04] MEDS: PAROXETINE HCL 20 MG TABLET 30 MG PO (08:12)
[2025-01-04] MEDS: POTASSIUM CHLORIDE 10 MEQ ER TABLET 20 MEQ PO ×2 (08:12→21:16)
[2025-01-04] MEDS: SOLIFENACIN SUCCINATE 10 MG TABLET PO (08:12)
[2025-01-04] MEDS: MAGNESIUM OXIDE 400 MG TABLET PO (08:13)
[2025-01-04] MEDS: OMEPRAZOLE 20 MG CAPSULE.DR PO ×2 (08:13→17:19)
[2025-01-04] MEDS: PREGABALIN 75 MG CAPSULE PO ×2 (08:13→21:16)
[2025-01-04] MEDS: HEPARIN SODIUM (PORCINE) 5,000 UNIT/ML VIAL 5000 UNIT SUBQ ×2 (08:13→21:16)
--- NOTE | 2025-01-04 08:48 | PT.DAILY ---
Physical Therapy Daily Note PT Daily Note/Assess Start: 01/04/25 08:40 Freq: Status: Active Protocol: Document 01/04/25 08:42 LORENE (Rec: 01/04/25 08:48 LORENE [id number]) Physical Therapy Daily Note/Assessment Time In/Time Out Time In 08:15 Time Out 08:39 Pain In Pain N/A Pain Out Pain N/A Subjective Subjective Pt supine upon arrival. Agreeable to PT but needs to use restroom first. On 4L supplamental O2 through [place]. Therapeutic Exercise Time Therapeutic Exercise 5 Minutes (minutes) Therapeutic Exercise 0 Units Therapeutic Exercise Treatment Therapeutic Exercise Pt instructed to perform bilat LE strengthening ex Treatment while sitting in BS chair 10x ea. Pt needs occ rest breaks due to SOB. SPO2 89% when checked in sitting. Therapeutic Activity Time Therapeutic Activity 12 Minutes (minutes) Therapeutic Activity 1 Units Therapeutic Activity Treatment Bed Mobility Ability Modified Independent Chair Transfer Modified Independent Ability Therapeutic Activity Supine>sit CYNTHIA with increased time need but no outside Comments support. Sits EOB unsupported for 2 min to get bearings - min dizziness at first that subsides quickly . Sit>stand Cynthia to rollator. Amb 25' to restroom with rollator SBA with assist for O2 lines. Pt uses restroom . Completes pericare and toilet transfer IND. Pt amb 5 ' to sink to wash hands and face with fair static standing balance with occ lean/resting arms on counter due to fatigue. Pt amb 30' to BS chair with rollator SBA with assist for O2 lines. SpO2 87% with amb. seated ex complete in B S chair. remains in BS chair with call light within reach and chair alarm activated. Total Physical Therapy Time Total Therapy 17 Minutes Total Physical 1 Therapy Units Summary Daily Note Summary Improved endurance with gait. Cont to have SOB with activity. Coughing spells. Moderate fatigue upon completion.
--- NOTE | 2025-01-04 09:13 | P.PN_ITS ---
Progress Note: Subjective Subjective Interval history: Patient feels about the same as yesterday, definite improved, O2 supplementation had be bumped up to 4 L, she wears a baseline of 3 L Exam Constitutional Vital Signs, click to edit/add: Last Vital Signs Temp 97.6 F 01/04/25 08:20 Pulse 88 01/04/25 08:20 Resp 20 01/04/25 08:20 BP 157/81 H 01/04/25 08:20 Pulse Ox 93 L 01/04/25 08:20 O2 Del Method Nasal Cannula 01/04/25 08:20 O2 Flow Rate 4 01/04/25 08:20 Documenting provider has reviewed patient's vital signs: yes Common normals: apparent distress (Mild conversational dyspnea) Chest Common normals: inspection of chest normal Respiratory Common normals: abnormal respiratory effort (Mild conversational dyspnea) Auscultation: rhonchi and wheezes Cardio Common normals: regular rate and regular rhythm Extremity Common normals: normal to inspection and no clubbing, cyanosis or edema Progress Note: Objective Labs Labs: Short CBC 01/04/25 Range/Units 05:45 WBC 9.3 (4.0-11.0) 10^3/uL Hgb 10.6 L (12.0-16.0) g/dL Hct 33.2 L (36.0-48.0) % Plt Count 254 (150-450) 10^3/uL BMP 01/04/25 05:45 Sodium 142 Potassium 4.6 Chloride 105 Carbon Dioxide 30.5 BUN 17.0 Creatinine 1.07 H Glucose 273 H Calcium 8.7 Liver Function 01/04/25 Range/Units 05:45 Total Bilirubin 0.1 L (0.2-1.0) mg/dL AST 11 L (15-37) U/L ALT 12 L (14-59) U/L Alkaline Phosphatase 92 (46-116) U/L Albumin 2.3 L (3.4-5.0) g/dL Progress Note: A&P Assessment and Plan (1) Asthma exacerbation in COPD: (2) RLL pneumonia: Qualifiers: Pneumonia type: due to unspecified organism Qualified Code(s): J18.9 - Pneumonia, unspecified organism (3) Acute and chronic respiratory failure: Qualifiers: Respiratory failure complication: hypoxia Qualified Code(s): J96.21 - Acute and chronic respiratory failure with hypoxia (4) Hypomagnesemia: (5) Acute hypokalemia: (6) Osteoarthritis of right hip: Qualifiers: Osteoarthritis type: primary Qualified Code(s): M16.11 - Unilateral primary osteoarthritis, right hip (7) Depression: Qualifiers: Active/Remission status: in full remission Depression Type: major depressive disorder Major depression recurrence: recurrent Qualified Code(s): F33.42 - Major depressive disorder, recurrent, in full remission (8) Chronic heart failure with preserved ejection fraction (HFpEF): (9) Weakness: Plan Admission findings: Sinus tachycardia, respiratory distress, uncontrolled hypertension, leukocytosis secondary to community-acquired pneumonia complicated by her chronic hypoxic respiratory failure requiring 3 L supplementation Acute hypoxia with community-acquired right lower lobe pneumonia complicated by chronic hypoxic respiratory failure requiring 3 L of supplementation- leukocytosis improved today, did need to increase her supplementation no from 3 L to 4 L, will try patient on IPV treatments Acute exacerbation asthma exacerbation in COPD due to the community-acquired pneumonia: Continue with current treatment plan Hypomagnesemia: Continue supplementation improved to normal Acute hypokalemia: Continue supplementation, improved to normal Osteoarthritis of right hip: Continue with home medications Depression: Continue with home medications Chronic heart failure with preserved ejection fraction (HFpEF): Maintain current treatment plan, no signs of fluid overload Weakness: PT OT evaluation Iron deficiency monitor daily-Down somewhat today, check occult blood Acute elevation in creatinine secondary to the community-acquired pneumonia- improved today Moderate protein calorie malnutrition-monitor with diet Hypertension-improved this morning, will continue to monitor hold off on blood pressure medications at this time Admission status: Patient admitted with community-acquired pneumonia, no improvement today, somewhat worse x-ray with needing to bump of her baseline supplemental oxygen from 3 L to 4 L, medically necessary treatment will span 2 midnights. Inpatient status
[2025-01-04] MEDS: SODIUM CHLORIDE 0.9% INHALATION 3 ML NEB 2.5 ML IH (11:11)
[2025-01-04] MEDS: BUDESONIDE 0.5 MG/2 ML AMPULE NEB IH ×2 (11:12→23:23)
[2025-01-04 11:42] LABS: Glucometer 319 mg/dL (74-106)
[2025-01-04] MEDS: INSULIN ASPART 300 UNIT/3 ML PEN SUBQ ×2 (11:45→21:17)
[2025-01-04] MEDS: 0.9 % SODIUM CHLORIDE 250 ML 10 ML IV (14:46)
[2025-01-04] MEDS: AZITHROMYCIN 500 MG in 0.9 % SODIUM CHLORIDE 250 ML 250 MG IV (14:46)
[2025-01-04] MEDS: CEFTRIAXONE 1,000 MG in 0.9 % SODIUM CHLORIDE 50 ML 100 MG IV (15:58)
[2025-01-04] MEDS: SODIUM CHLORIDE 0.9% INHALATION 3 ML NEB 6 ML IH ×2 (16:22→23:24)
[2025-01-04 17:19] LABS: Glucometer 137 mg/dL (74-106)
[2025-01-04 19:38] LABS: Glucometer 232 mg/dL (74-106)
[2025-01-04] MEDS: TRAZODONE HCL 50 MG TABLET 100 MG PO (21:16)
[2025-01-04] MEDS: LATANOPROST 0.005% 2.5 ML BOTTLE 1 DROP OP (21:18)
[2025-01-05] VITALS (22 sets, daily range): BP systolic 127–173; BP diastolic 64–92; PULSE 57–85; TEMP 36.6–36.8; O2SAT 88–93
[2025-01-05] MEDS: METHYLPREDNISOLONE SOD SUCC PF 40 MG/ML VIAL IVP ×5 (01:41→23:55)
[2025-01-05] MEDS: SODIUM CHLORIDE 0.9% INHALATION 3 ML NEB 6 ML IH ×3 (04:30→23:27)
[2025-01-05] MEDS: IPRATROPIUM/ALBUTEROL SULFATE 3 ML AMPUL.NEB IH ×4 (04:30→23:27)
[2025-01-05] MEDS: BACLOFEN 10 MG TABLET PO ×3 (05:40→21:45)
[2025-01-05 06:22] LABS: Basophils Percent Auto 0.1 % (0.2-2.0); Hematocrit 35.2 % (36.0-48.0); Hemoglobin 11.3 g/dL (12.0-16.0); Immature Granulocytes Abs Auto 0.25 10^3/uL (0.00-0.03); Immature Granulocytes Pct Auto 2.5 % (0.0-0.5); Lymphocytes Absolute Auto 0.9 10^3/uL (1.2-3.8); Lymphocytes Percent Auto 8.6 % (20.5-60.0); Mean Corpuscular HGB Conc 32.1 g/dL (29.9-35.2); Mean Corpuscular Hemoglobin 30.1 pg (26.7-34.0); Mean Corpuscular Volume 93.9 fL (81.0-99.0); Monocytes Absolute Auto 0.4 10^3/uL (0.3-0.8); Monocytes Percent Auto 3.9 % (1.7-12.0); Neutrophils Absolute Auto 8.4 10^3/uL (1.4-6.5); Neutrophils Percent Auto 84.9 % (43.0-75.0); Platelet Count 299 10^3/uL (150-450); Red Blood Count 3.75 10^6/uL (4.20-5.40); Red Cell Distribution Width 13.8 % (11.0-15.0); White Blood Count 9.9 10^3/uL (4.0-11.0)
[2025-01-05 06:40] LABS: PCO2 VBG 45.8 mmHg (40.0-52.0); pH VBG 7.434 (7.330-7.430)
[2025-01-05 06:41] LABS: Anion Gap 12.1; BUN Creatinine Ratio 19.5; Calcium 9.5 mg/dL (8.5-10.1); Carbon Dioxide 29.2 mmol/L (21.0-32.0); Chloride 103 mmol/L (98-107); Estimated GFR (African America 53 (>=60 mL/min/1.73m^2); Estimated GFR (Non-African Ame 43 (>=60 mL/min/1.73m^2); Glucose 208 mg/dL (74-106); Potassium 4.3 mmol/L (3.5-5.1); Sodium 140 mmol/L (136-145)
--- NOTE | 2025-01-05 07:53 | XR_ITS ---
The [address] [address] Patient Name: JHONATAN MONTOYA MRN: [id number] date: 1955 Sex: F Assigned Patient Location: [place] Current Patient Location: [place] Accession/Order Number: [id number] Exam Date: 01/05/2025 09:39 Report Date: 01/05/2025 09:42 At the request of: KANDY MEDINA MD Procedure: XR chest 2V Chest 2 views CLINICAL HISTORY: follow up on pneumonia COMPARISON: Chest 01/02/2025 FINDINGS: Cardiomegaly with vascular congestion is unchanged. Improved aeration of the lungs when compared to the prior study with residual scattered areas of atelectasis. Trace left-sided pleural effusion. No pneumothorax or free air. XR/XR chest 2V IMPRESSION: IMPROVED AERATION OF THE LUNGS WITH SCATTERED AREAS OF ATELECTASIS AND LIKELY TRACE LEFT PLEURAL EFFUSION. CONTINUED FOLLOW-UP IS RECOMMENDED TO ENSURE RESOLUTION. Impression dictated by: Marcos Medina Jr., DJusticeOJustice01/05/2025 9:42 AM Dictation Location: [employer] Electronically authenticated by: [id number] Y Date: 01/05/2025 09:42
[2025-01-05 08:00] LABS: Glucometer 198 mg/dL (74-106)
[2025-01-05] MEDS: SOLIFENACIN SUCCINATE 10 MG TABLET PO (08:31)
[2025-01-05] MEDS: PREGABALIN 75 MG CAPSULE PO ×2 (08:31→21:45)
[2025-01-05] MEDS: PAROXETINE HCL 20 MG TABLET 30 MG PO (08:31)
[2025-01-05] MEDS: MONTELUKAST SODIUM 10 MG TABLET PO (08:31)
[2025-01-05] MEDS: MAGNESIUM OXIDE 400 MG TABLET PO (08:31)
[2025-01-05] MEDS: LEVOFLOXACIN IN DEXTROSE 5 % 750 MG/150 ML PREMIX 100 MG IV (08:32)
[2025-01-05] MEDS: OMEPRAZOLE 20 MG CAPSULE.DR PO ×2 (08:32→17:27)
[2025-01-05] MEDS: LISINOPRIL 10 MG TABLET PO (08:32)
[2025-01-05] MEDS: HEPARIN SODIUM (PORCINE) 5,000 UNIT/ML VIAL 5000 UNIT SUBQ ×2 (08:32→21:46)
[2025-01-05] MEDS: POTASSIUM CHLORIDE 10 MEQ ER TABLET 20 MEQ PO ×2 (08:33→21:45)
[2025-01-05] MEDS: INSULIN ASPART 300 UNIT/3 ML PEN SUBQ ×4 (08:33→21:46)
--- NOTE | 2025-01-05 09:39 | P.PN_ITS ---
Progress Note: Subjective Subjective Interval history: Patient may be a little better than yesterday still with productive cough of colored sputum, still on 4 L, her baseline is 3 L Exam Constitutional Vital Signs, click to edit/add: Last Vital Signs Temp 98.0 F 01/05/25 04:00 Pulse 60 01/05/25 07:47 Resp 20 01/05/25 04:29 BP 173/81 H 01/05/25 08:32 Pulse Ox 88 L 01/05/25 07:47 O2 Del Method Home BIPAP / CPAP 01/05/25 04:29 O2 Flow Rate 4 01/05/25 04:29 Documenting provider has reviewed patient's vital signs: yes Common normals: apparent distress (Mild conversational dyspnea -unchanged) Chest Common normals: inspection of chest normal Respiratory Common normals: abnormal respiratory effort (Mild conversational dyspnea- unchanged) Auscultation: rhonchi (No significant improvement) and wheezes Cardio Common normals: regular rate and regular rhythm Extremity Common normals: normal to inspection and no clubbing, cyanosis or edema Progress Note: Objective Labs Labs: Short CBC 01/05/25 Range/Units 06:06 WBC 9.9 (4.0-11.0) 10^3/uL Hgb 11.3 L (12.0-16.0) g/dL Hct 35.2 L (36.0-48.0) % Plt Count 299 (150-450) 10^3/uL BMP 01/05/25 06:06 Sodium 140 Potassium 4.3 Chloride 103 Carbon Dioxide 29.2 BUN 24.0 H Creatinine 1.23 H Glucose 208 H Calcium 9.5 Progress Note: A&P Assessment and Plan (1) Asthma exacerbation in COPD: (2) RLL pneumonia: Qualifiers: Pneumonia type: due to unspecified organism Qualified Code(s): J18.9 - Pneumonia, unspecified organism (3) Acute and chronic respiratory failure: Qualifiers: Respiratory failure complication: hypoxia Qualified Code(s): J96.21 - Acute and chronic respiratory failure with hypoxia (4) Hypomagnesemia: (5) Acute hypokalemia: (6) Osteoarthritis of right hip: Qualifiers: Osteoarthritis type: primary Qualified Code(s): M16.11 - Unilateral primary osteoarthritis, right hip (7) Depression: Qualifiers: Depression Type: major depressive disorder Major depression recurrence: recurrent Active/Remission status: in full remission Qualified Code(s): F33.42 - Major depressive disorder, recurrent, in full remission (8) Chronic heart failure with preserved ejection fraction (HFpEF): (9) Weakness: Plan Admission findings: Sinus tachycardia, respiratory distress, uncontrolled hypertension, leukocytosis secondary to community-acquired pneumonia complicated by her chronic hypoxic respiratory failure requiring 3 L supplementation Acute hypoxia with community-acquired right lower lobe pneumonia complicated by chronic hypoxic respiratory failure requiring 3 L of supplementation-cytosis is improved, but patient however is not, with adjust antibiotics today, repeat chest x-ray today Acute exacerbation asthma exacerbation in COPD due to the community-acquired pneumonia: See plan as outlined above Hypomagnesemia: Continue supplementation improved to normal Acute hypokalemia: Continue supplementation, improved to normal Osteoarthritis of right hip: Continue with home medications Depression: Continue with home medications Chronic heart failure with preserved ejection fraction (HFpEF): Maintain current treatment plan, no signs of fluid overload Weakness: PT OT evaluation Iron deficiency monitor daily-check on Hemoccult Acute elevation in creatinine secondary to the community-acquired pneumonia- improved today Moderate protein calorie malnutrition-monitor with diet Hypertension-improved this morning, will continue to monitor hold off on blood pressure medications at this time Admission status: Patient admitted with community-acquired pneumonia, no improvement today, somewhat worse x-ray with needing to bump of her baseline supplemental oxygen from 3 L to 4 L, medically necessary treatment will span 2 midnights. Inpatient status
[2025-01-05] MEDS: 0.9 % SODIUM CHLORIDE 250 ML 10 ML IV (10:05)
[2025-01-05] MEDS: BUDESONIDE 0.5 MG/2 ML AMPULE NEB IH ×2 (11:20→23:27)
[2025-01-05 12:09] LABS: Glucometer 174 mg/dL (74-106)
[2025-01-05] MEDS: PIPERACILLIN SODIUM/TAZOBACTAM 3.375 GM in 0.9 % SODIUM CHLORIDE 50 ML IV ×2 (12:18→18:12)
[2025-01-05] MEDS: SODIUM CHLORIDE 0.9% INHALATION 3 ML NEB 2.5 ML IH (16:06)
[2025-01-05 16:47] LABS: Glucometer 161 mg/dL (74-106)
[2025-01-05 20:49] LABS: Glucometer 224 mg/dL (74-106)
[2025-01-05] MEDS: LATANOPROST 0.005% 2.5 ML BOTTLE 1 DROP OP (21:45)
[2025-01-05] MEDS: TRAZODONE HCL 50 MG TABLET 100 MG PO (21:45)
[2025-01-05] MEDS: GUAIFENESIN 200 MG/DEXTROMETHORPHAN 20 MG 10 ML UNIT DOSE CUP PO (21:46)
[2025-01-06] VITALS (13 sets, daily range): BP systolic 134–176; BP diastolic 77–97; PULSE 57–83; TEMP 36.3–36.8; O2SAT 84–94
[2025-01-06] MEDS: PIPERACILLIN SODIUM/TAZOBACTAM 3.375 GM in 0.9 % SODIUM CHLORIDE 50 ML IV ×3 (03:14→19:21)
[2025-01-06] MEDS: HYDRALAZINE HCL 20 MG/ML VIAL 10 MG IVP (04:06)
[2025-01-06] MEDS: IPRATROPIUM/ALBUTEROL SULFATE 3 ML AMPUL.NEB IH ×4 (04:12→22:15)
[2025-01-06] MEDS: SODIUM CHLORIDE 0.9% INHALATION 3 ML NEB 6 ML IH ×3 (04:13→22:15)
[2025-01-06] MEDS: METHYLPREDNISOLONE SOD SUCC PF 40 MG/ML VIAL IVP (05:04)
[2025-01-06] MEDS: BACLOFEN 10 MG TABLET PO ×3 (05:04→21:06)
[2025-01-06 06:02] LABS: Basophils Percent Auto 0.3 % (0.2-2.0); Hematocrit 37.4 % (36.0-48.0); Hemoglobin 12.4 g/dL (12.0-16.0); Immature Granulocytes Abs Auto 0.43 10^3/uL (0.00-0.03); Immature Granulocytes Pct Auto 6.1 % (0.0-0.5); Lymphocytes Absolute Auto 0.6 10^3/uL (1.2-3.8); Lymphocytes Percent Auto 8.7 % (20.5-60.0); Mean Corpuscular HGB Conc 33.2 g/dL (29.9-35.2); Mean Corpuscular Hemoglobin 30.5 pg (26.7-34.0); Mean Corpuscular Volume 92.1 fL (81.0-99.0); Mean Platelet Volume 8.9 fL (9.5-13.5); Monocytes Absolute Auto 0.3 10^3/uL (0.3-0.8); Monocytes Percent Auto 4.7 % (1.7-12.0); Neutrophils Absolute Auto 5.7 10^3/uL (1.4-6.5); Neutrophils Percent Auto 80.2 % (43.0-75.0); Platelet Count 274 10^3/uL (150-450); Red Blood Count 4.06 10^6/uL (4.20-5.40); Red Cell Distribution Width 13.5 % (11.0-15.0); White Blood Count 7.1 10^3/uL (4.0-11.0)
[2025-01-06 06:15] LABS: Anion Gap 10.4; BUN Creatinine Ratio 23.7; Calcium 9.3 mg/dL (8.5-10.1); Carbon Dioxide 30.7 mmol/L (21.0-32.0); Chloride 103 mmol/L (98-107); Estimated GFR (African America 55 (>=60 mL/min/1.73m^2); Estimated GFR (Non-African Ame 46 (>=60 mL/min/1.73m^2); Glucose 230 mg/dL (74-106); Potassium 4.1 mmol/L (3.5-5.1); Sodium 140 mmol/L (136-145)
--- NOTE | 2025-01-06 06:56 | P.PN_ITS ---
Progress Note: Subjective Subjective Interval history: Patient still with significant dyspnea, still on 4 L overnight, this morning had to be bumped up to 5 Exam Constitutional Vital Signs, click to edit/add: Last Vital Signs Temp 97.5 F L 01/06/25 04:05 Pulse 81 01/06/25 04:30 Resp 22 H 01/06/25 04:30 BP 168/97 H 01/06/25 04:36 Pulse Ox 90 L 01/06/25 04:30 O2 Del Method Nasal Cannula 01/06/25 04:30 O2 Flow Rate 4 01/06/25 04:30 Documenting provider has reviewed patient's vital signs: yes Common normals: apparent distress (Mild conversational dyspnea -unchanged) Chest Common normals: inspection of chest normal Respiratory Common normals: abnormal respiratory effort (Mild conversational dyspnea- unchanged) Auscultation: rales (Bases), rhonchi (No significant improvement) and wheezes Cardio Common normals: regular rate and regular rhythm Extremity Common normals: normal to inspection and no clubbing, cyanosis or edema Progress Note: Objective Labs Labs: Short CBC 01/06/25 Range/Units 05:55 WBC 7.1 (4.0-11.0) 10^3/uL Hgb 12.4 (12.0-16.0) g/dL Hct 37.4 (36.0-48.0) % Plt Count 274 (150-450) 10^3/uL BMP 01/06/25 05:55 Sodium 140 Potassium 4.1 Chloride 103 Carbon Dioxide 30.7 BUN 28.0 H Creatinine 1.18 H Glucose 230 H Calcium 9.3 Progress Note: A&P Assessment and Plan (1) Asthma exacerbation in COPD: (2) RLL pneumonia: Qualifiers: Pneumonia type: due to unspecified organism Qualified Code(s): J18.9 - Pneumonia, unspecified organism (3) Acute and chronic respiratory failure: Qualifiers: Respiratory failure complication: hypoxia Qualified Code(s): J96.21 - Acute and chronic respiratory failure with hypoxia (4) Hypomagnesemia: (5) Acute hypokalemia: (6) Osteoarthritis of right hip: Qualifiers: Osteoarthritis type: primary Qualified Code(s): M16.11 - Unilateral primary osteoarthritis, right hip (7) Depression: Qualifiers: Active/Remission status: in full remission Depression Type: major depressive disorder Major depression recurrence: recurrent Qualified Code(s): F33.42 - Major depressive disorder, recurrent, in full remission (8) Chronic heart failure with preserved ejection fraction (HFpEF): (9) Weakness: Plan Admission findings: Sinus tachycardia, respiratory distress, uncontrolled hypertension, leukocytosis secondary to community-acquired pneumonia complicated by her chronic hypoxic respiratory failure requiring 3 L supplementation Acute hypoxia with community-acquired right lower lobe pneumonia complicated by chronic hypoxic respiratory failure requiring 3 L of supplementation- leukocytosis is improved, but hypoxia worse this morning, check CT scan, and echocardiogram Elevated BNP likely related to acute systolic heart failure-likely from the need for steroids, will give 1 dose of Lasix today, with hypoxia worsen will check echocardiogram Acute exacerbation asthma exacerbation in COPD due to the community-acquired pneumonia: See plan as outlined above Hypomagnesemia: Continue supplementation improved to normal Acute hypokalemia: Continue supplementation, improved to normal Osteoarthritis of right hip: Continue with home medications Depression: Continue with home medications Chronic heart failure with preserved ejection fraction (HFpEF): Maintain current treatment plan, no signs of fluid overload Weakness: PT OT evaluation Iron deficiency monitor daily-check on Hemoccult Acute elevation in creatinine secondary to the community-acquired pneumonia- improved today Moderate protein calorie malnutrition-monitor with diet Hypertension-improved this morning, will continue to monitor hold off on blood pressure medications at this time Admission status: Patient admitted with community-acquired pneumonia, no improvement today, somewhat worse x-ray with needing to bump of her baseline supplemental oxygen from 3 L to 4 L, medically necessary treatment will span 2 midnights. Inpatient status
[2025-01-06 07:45] LABS: Glucometer 194 mg/dL (74-106)
--- NOTE | 2025-01-06 08:15 | CA_ITS ---
Patient Name: JHONATAN MONTOYA MR#: [id number] : 1955 Exam Date: 01/06/2025 Ordering Doctor: DR Nick Zepeda . ECHOCARDIOGRAM REPORT PROCEDURE: CA ECHO DOPPLER COMPLETE INDICATIONS: acute chf COMPARISON: None. DESCRIPTION: COMPLETE ECHOCARDIOGRAM Real-time transthoracic echocardiography with 2D, M-mode, spectral and color flow Doppler performed. QUALITY: Technical quality was adequate. LEFT VENTRICLE: Normal chamber size. Mild concentric left ventricular hypertrophy. LV EF: Normal left ventricle systolic function without wall motion abnormalities, left ventricular ejection fraction 55% DIASTOLIC: Indeterminate diastolic function. ATRIAL SEPTUM: It appears intact LEFT ATRIUM: Normal chamber size. RIGHT ATRIUM: Normal chamber size. RIGHT VENTRICLE: Normal chamber size. Normal right ventricular systolic function. TRICUSPID VALVE: Normal mobility and thickness. No stenosis with trivial regurgitation. Severe pulmonary hypertension.RVSP 63mmHg MITRAL VALVE: Normal mobility and thickness. No evidence of mitral valve stenosis. There is no mitral annular calcification. Trivial mitral regurgitation. AORTIC VALVE: Normal trileaflet appearance. No visible sclerosis. Normal leaflet mobility. No evidence of aortic valve stenosis. No aortic regurgitation. AORTIC ROOT: Normal diameter and appearance. PULMONIC VALVE: Grossly normal. No stenosis. Trivial regurgitation. PERICARDIUM: No evidence of pericardial effusion. Pericardial fatty pad is noted IVC: Mild dilatation. measuring 2.2cm with no collapse. PLEURA: CONCLUSION: Mild concentric left ventricle hypertrophy Normal left ventricle systolic function without wall motion abnormalities, ejection fraction 55% Indeterminate left ventricular diastolic function Normal right ventricle size and systolic function Severe pulmonary hypertension, RVSP 63 mmHg No significant valvular abnormalities Dilated IVC with reduced respiratory collapse consistent with elevated CVP, RAP 15 mmHg Adult Echocardiography Procedure Report Left Ventricle LVEDD (3.7 - 5.6 cm): 5.04 cm LVESD (2.2 - 4.0 cm): 3.62 cm LVIVS thickness (0.6 - 1.2 cm): 1.16 cm LVPW thickness (0.5 - 1.0 cm): 1.30 cm e': 0.08 m/s E - e': 7.82 LVOT Max Gradient: 3.64 mm[Hg] LVOT Area (cm2): 0.95 m/s Peak Velocity (LVOT): 0.95 m/s Mean Velocity (LVOT): 0.60 m/s LVOT Diameter 1.94 cm Left Ventricular Ejection Fraction: Left Atrium LA Volume Index (2D A2C): 31.73 ml/m2 Left Atrium Systolic Dimension: 3.63 cm Mitral Valve MV E to A Ratio: 0.84 MV Max Gradient: MV Mean Gradient: Mitral Valve A-Wave Peak Velocity: 0.77 m/s Mitral Valve E-Wave Peak Velocity: 0.65 m/s Cardiovascular Orifice Area: Right Ventricle RV Internal Diastolic Dimension: 3.36 cm Aorta AO Root Diam: 3.05 cm Ascending Ao Diam: 3.21 cm Aortic Valve AoV Area (Peak Rafita): 2.13 cm2, 2.13 cm2 AoV Area (VTI): 2.34 cm2, 2.34 cm2 Deceleration [place]: Pressure Half-Time: Peak Velocity(Antegrade Flow): 1.33 m/s Peak Gradient(Antegrade Flow): 7.08 mm[Hg] Mean Velocity(Antegrade Flow): 0.84 m/s Mean Gradient(Antegrade Flow): 3.31 mm[Hg] Velocity Time Integral: 23.91 cm Tricuspid Valve Peak Velocity (Regurgitant Flow): 1.99 m/s, 2.37 m/s, 3.46 m/s Peak Velocity: Pulmonic Valve Mean Gradient: Mean Velocity: Peak Velocity: 1.31 m/s Peak Gradient: 6.42 mm[Hg], 7.24 mm[Hg] Right Atrium Right Atrium Systolic Pressure: 8 mmHg Dictated by: Gary Casas MD on 01/06/2025 at 17:55 Approved by: Gary Casas MD on 01/06/2025 at 18:07
--- NOTE | 2025-01-06 08:23 | CM.NOTE ---
Rounds made with Dr. Zepeda, discussed with pt about BMP being elevated and will give diuretic this AM. Possible discharge to home this afternoon.
[2025-01-06] MEDS: POTASSIUM CHLORIDE 10 MEQ ER TABLET 20 MEQ PO ×2 (08:42→21:06)
[2025-01-06] MEDS: NYSTATIN 15 GM POWDER 1 APPLIC TOPICAL ×2 (08:42→21:06)
[2025-01-06] MEDS: OMEPRAZOLE 20 MG CAPSULE.DR PO ×2 (08:42→16:38)
[2025-01-06] MEDS: PAROXETINE HCL 20 MG TABLET 30 MG PO (08:42)
[2025-01-06] MEDS: FUROSEMIDE 40 MG/4 ML VIAL IVP (08:42)
[2025-01-06] MEDS: PREGABALIN 75 MG CAPSULE PO ×2 (08:42→21:06)
[2025-01-06] MEDS: HEPARIN SODIUM (PORCINE) 5,000 UNIT/ML VIAL 5000 UNIT SUBQ ×2 (08:43→21:07)
[2025-01-06] MEDS: PREDNISONE 20 MG TABLET 30 MG PO (08:43)
[2025-01-06] MEDS: SOLIFENACIN SUCCINATE 10 MG TABLET PO (08:43)
[2025-01-06] MEDS: LISINOPRIL 10 MG TABLET PO (08:43)
[2025-01-06] MEDS: INSULIN ASPART 300 UNIT/3 ML PEN SUBQ ×3 (08:43→21:08)
[2025-01-06] MEDS: MONTELUKAST SODIUM 10 MG TABLET PO (08:43)
[2025-01-06] MEDS: MAGNESIUM OXIDE 400 MG TABLET PO (08:43)
--- NOTE | 2025-01-06 09:31 | CM.NOTE ---
Important Message From Medicare discussed with pt, pt verbalizes understanding and signs paper. Original given to pt and copy placed on pt's chart.
[2025-01-06] MEDS: BUDESONIDE 0.5 MG/2 ML AMPULE NEB IH ×2 (10:08→22:15)
--- NOTE | 2025-01-06 11:07 | PT.DAILY ---
Physical Therapy Daily Note PT Daily Note/Assess Start: 01/04/25 08:40 Freq: Status: Active Protocol: Document 01/06/25 11:06 LORENE (Rec: 01/06/25 11:07 LORENE [id number]) Visit Not Completed Visit Not Completed Visit Not Completed Pt refusing Due to: Other Reason Visit Family present. Pt refusing. States she gets too winded Not Completed when up and amb. (nursing confirmed and O2 has been adjusted today) MAINTENANCE CUSTODIAN offered to help to to chair for seated ex. pt cont to decline, reports she's going down for CT scan soon and wants to save her energy for that . Physical Therapy Daily Note/Assessment Time In/Time Out Time In 11:00 Time Out 11:04 Pain In Pain N/A Pain Out Pain N/A GG. Functional Abilities and Goals-Complete for Swing Bed Patients Only [id number]. Self-Care [id number]. Mobility
--- NOTE | 2025-01-06 14:22 | SWNOTE1 ---
SW stopped back in to offer home health services to patient. SW advised it may be beneficial to at least have a nurse come out for a little bit. Pt is agreeable and liked her nurse from [facility]. Referral sent to [facility]. Referral included face sheet, ED note, H&P, provider notes, and PT/OT notes.
--- NOTE | 2025-01-06 16:01 | SWNOTE1 ---
SW called [facility] and they are able to accept.
[2025-01-06 16:38] LABS: Glucometer 274 mg/dL (74-106)
[2025-01-06 21:07] LABS: Glucometer 152 mg/dL (74-106)
[2025-01-06] MEDS: LATANOPROST 0.005% 2.5 ML BOTTLE 1 DROP OP (21:07)
[2025-01-06] MEDS: TRAZODONE HCL 50 MG TABLET 100 MG PO (21:44)
[2025-01-07 00:10] VITALS: BP 136/88; PULSE 76; TEMP 36.6; O2SAT 90
[2025-01-07] MEDS: PIPERACILLIN SODIUM/TAZOBACTAM 3.375 GM in 0.9 % SODIUM CHLORIDE 50 ML IV (03:26)
[2025-01-07] MEDS: SODIUM CHLORIDE 0.9% INHALATION 3 ML NEB 6 ML IH (04:06)
[2025-01-07] MEDS: IPRATROPIUM/ALBUTEROL SULFATE 3 ML AMPUL.NEB IH ×2 (04:06→10:57)
[2025-01-07 04:10] VITALS: PULSE 74; O2SAT 91
[2025-01-07 04:28] VITALS: PULSE 89; O2SAT 94
[2025-01-07] MEDS: BACLOFEN 10 MG TABLET PO (05:08)
[2025-01-07 05:49] LABS: Basophils Absolute Auto 0.1 10^3/uL (0.0-0.1); Basophils Percent Auto 0.6 % (0.2-2.0); Eosinophils Percent Auto 0.1 % (0.9-7.0); Hematocrit 39.8 % (36.0-48.0); Hemoglobin 13.1 g/dL (12.0-16.0); Immature Granulocytes Abs Auto 0.65 10^3/uL (0.00-0.03); Immature Granulocytes Pct Auto 5.3 % (0.0-0.5); Lymphocytes Absolute Auto 1.5 10^3/uL (1.2-3.8); Lymphocytes Percent Auto 12.5 % (20.5-60.0); Mean Corpuscular HGB Conc 32.9 g/dL (29.9-35.2); Mean Corpuscular Hemoglobin 30.3 pg (26.7-34.0); Mean Corpuscular Volume 92.1 fL (81.0-99.0); Mean Platelet Volume 8.9 fL (9.5-13.5); Monocytes Absolute Auto 1.1 10^3/uL (0.3-0.8); Monocytes Percent Auto 9.1 % (1.7-12.0); Neutrophils Absolute Auto 8.9 10^3/uL (1.4-6.5); Neutrophils Percent Auto 72.4 % (43.0-75.0); Platelet Count 347 10^3/uL (150-450); Red Blood Count 4.32 10^6/uL (4.20-5.40); Red Cell Distribution Width 14.1 % (11.0-15.0); White Blood Count 12.3 10^3/uL (4.0-11.0)
[2025-01-07 06:08] LABS: Anion Gap 7.9; BUN Creatinine Ratio 26.4; Calcium 9.3 mg/dL (8.5-10.1); Carbon Dioxide 35.4 mmol/L (21.0-32.0); Chloride 100 mmol/L (98-107); Estimated GFR (African America 52 (>=60 mL/min/1.73m^2); Estimated GFR (Non-African Ame 43 (>=60 mL/min/1.73m^2); Glucose 166 mg/dL (74-106); Potassium 4.3 mmol/L (3.5-5.1); Sodium 139 mmol/L (136-145)
--- NOTE | 2025-01-07 06:43 | P.DS_ITS ---
DS: Providers Provider Date of admission: 01/02/25 18:42 Primary care physician: AIDA BLANC Consults: 01/02/25 17:21 Occupational Therapy Eval and Treat Routine Reason for consultation: weakness Has provider been notified: No Physical Therapy Eval and Treat Routine Reason for consultation: weakness Has provider been notified: No DS: Diagnosis Discharge Diagnosis (1) Asthma exacerbation in COPD: (2) RLL pneumonia: Qualifiers: Pneumonia type: due to unspecified organism Qualified Code(s): J18.9 - Pneumonia, unspecified organism (3) Acute and chronic respiratory failure: Qualifiers: Respiratory failure complication: hypoxia Qualified Code(s): J96.21 - Acute and chronic respiratory failure with hypoxia (4) Hypomagnesemia: (5) Acute hypokalemia: (6) Osteoarthritis of right hip: Qualifiers: Osteoarthritis type: primary Qualified Code(s): M16.11 - Unilateral primary osteoarthritis, right hip (7) Depression: Qualifiers: Active/Remission status: in full remission Depression Type: major depressive disorder Major depression recurrence: recurrent Qualified Code(s): F33.42 - Major depressive disorder, recurrent, in full remission (8) Chronic heart failure with preserved ejection fraction (HFpEF): (9) Weakness: Plan Admission findings: Sinus tachycardia, respiratory distress, uncontrolled hypertension, leukocytosis secondary to community-acquired pneumonia complicated by her chronic hypoxic respiratory failure requiring 3 L supplementation Acute hypoxia with community-acquired right lower lobe pneumonia complicated by chronic hypoxic respiratory failure requiring 3 L of supplementation-lobar 4 L of supplemental oxygen at home, form completed Elevated BNP likely related to acute systolic heart failure-diuresed again today oral Acute exacerbation asthma exacerbation in COPD due to the community-acquired pneumonia: See plan as outlined above Hypomagnesemia: Continue supplementation improved to normal Acute hypokalemia: Continue supplementation, improved to normal Osteoarthritis of right hip: Continue with home medications Depression: Continue with home medications Chronic heart failure with preserved ejection fraction (HFpEF): Maintain current treatment plan, no signs of fluid overload Weakness: PT OT evaluation Iron deficiency monitor daily-check on Hemoccult Acute elevation in creatinine secondary to the community-acquired pneumonia- improved today Moderate protein calorie malnutrition-monitor with diet Hypertension-improved this morning, will continue to monitor hold off on blood pressure medications at this time Admission status: Patient admitted with community-acquired pneumonia, no improvement today, somewhat worse x-ray with needing to bump of her baseline supplemental oxygen from 3 L to 4 L, medically necessary treatment will span 2 midnights. Inpatient status ? DS: Summary Hospital Course Hospital Course: Patient with acute hypoxic respiratory failure, she normally wears 3 L at home, requiring increased supplementation here due to pneumonia, community-acquired, patient did not improve after the first couple days antibiotics were changed 2 days ago, she did continue to improve at that point in time she also received steroids which seemed to help but also recreated some fluid retention, she diu resed well yesterday and will repeat again a dose today. We do not believe she is in heart failure is much as it is just fluid overload from fluid retention from the steroids. At this point she does feel improved to the point that she can be discharged to home she again will require 4 L of supplemental oxygen but hoping over time we will be able to wean that back down to 3. Medications to this. Follow-up with PCP within the next week. Status at Discharge Overall status at discharge: patient is not back to baseline Time Spent with Patient Time attestation: Total time spent providing and/or coordinating discharge services: Time spent: greater than 30 minutes Exam Constitutional Vital Signs, click to edit/add: Last Vital Signs Temp 97.8 F 01/07/25 00:10 Pulse 89 01/07/25 04:28 Resp 20 01/07/25 04:28 BP 136/88 01/07/25 00:10 Pulse Ox 94 L 01/07/25 04:28 O2 Del Method Home BIPAP / CPAP 01/07/25 04:28 O2 Flow Rate 4 01/07/25 04:28 Documenting provider has reviewed patient's vital signs: yes Common normals: no apparent distress (Looks much improved from previous day) Chest Common normals: inspection of chest normal Respiratory Common normals: normal respiratory effort (Improved from previous day) Auscultation: rhonchi (Much improved from previous day); no rales (Resolved) and no wheezes Cardio Common normals: regular rate and regular rhythm Extremity Common normals: normal to inspection and no clubbing, cyanosis or edema DS: Data Data Completed and Pending Labs on day of discharge: Labs from last 24 hours 01/07/25 01/06/25 01/06/25 05:31 21:05 16:37 WBC 12.3 H RBC 4.32 Hgb 13.1 Hct 39.8 MCV 92.1 MCH 30.3 MCHC 32.9 RDW 14.1 Plt Count 347 MPV 8.9 L Neut % (Auto) 72.4 Lymph % (Auto) 12.5 L [place] % (Auto) 9.1 Eos % (Auto) 0.1 L Baso % (Auto) 0.6 Neut # (Auto) 8.9 H Lymph # (Auto) 1.5 [place] # (Auto) 1.1 H Eos # (Auto) 0.0 Baso # (Auto) 0.1 Abs Immat Gran (auto) 0.65 H Imm/Tot Granulo (auto) 5.3 H Sodium 139 Potassium 4.3 Chloride 100 Carbon Dioxide 35.4 H Anion Gap 7.9 BUN 33.0 H Creatinine 1.25 H Est GFR ( Amer) 52 L Est GFR (Non-Af Amer) 43 L BUN/Creatinine Ratio 26.4 Glucose 166 H Calcium 9.3 NT-Pro-B Natriuret Pep POC Glucose 152 H 274 H 01/06/25 01/06/25 07:43 05:55 WBC RBC Hgb Hct MCV MCH MCHC RDW Plt Count MPV Neut % (Auto) Lymph % (Auto) [place] % (Auto) Eos % (Auto) Baso % (Auto) Neut # (Auto) Lymph # (Auto) [place] # (Auto) Eos # (Auto) Baso # (Auto) Abs Immat Gran (auto) Imm/Tot Granulo (auto) Sodium Potassium Chloride Carbon Dioxide Anion Gap BUN Creatinine Est GFR ( Amer) Est GFR (Non-Af Amer) BUN/Creatinine Ratio Glucose Calcium NT-Pro-B Natriuret Pep 3735.0 H* POC Glucose 194 H Preliminary micro results at discharge 01/02/25 16:43 Blood Culture Result 2 - Preliminary Blood - Left Hand NO GROWTH AT 36-48 HOURS. FINAL TO FOLLOW. 01/02/25 16:30 Blood Culture Result 1 - Preliminary Blood - Left Antecubital NO GROWTH AT 36-48 HOURS. FINAL TO FOLLOW. Discharge Plan Discharge Disposition: Home Health Service Discharge Medications: New amoxicillin-pot clavulanate 875-125 mg tablet 1 tab PO Q12H Qty: 20 0RF prednisone 10 mg tablet 30 mg PO DAILY Qty: 20 0RF Rx Instructions: 3/day for 3 days, 2/day for 3 days, 1/day for 3 days, 1/2 /day for 4 days Continued albuterol sulfate 2.5 mg /3 mL (0.083 %) solution for nebulization 2.5 mg inhalation QID sodium chloride 0.9 % solution for nebulization 2.5 ml INHALATION Q8H PRN (Reason: shortness of breath or wheezing) latanoprost 0.005 % drops 1 drp OPHTHALMIC (EYE) .HS magnesium oxide 400 mg (241.3 mg magnesium) tablet 400 mg PO DAILY Rx Instructions: WITH FOOD omeprazole 20 mg capsule,delayed release(DR/EC) 20 mg PO BID Trelegy Ellipta 200-62.5-25 mcg blister with device 1 inh INHALATION Q24H pramipexole [Mirapex] 0.25 mg tablet 0.25 mg PO QPM PRN (Reason: restless leg(s)) Rx Instructions: administer 2 - 3 hours before bedtime montelukast 10 mg tablet 10 mg PO DAILY paroxetine HCl 30 mg tablet 30 mg PO QDAY pregabalin 75 mg capsule 75 mg PO BID solifenacin 10 mg tablet 10 mg PO QDAY trazodone 100 mg tablet 100 mg PO .qhs baclofen 10 mg tablet 10 mg PO Q8H Print Language: Yakut Icebox Worker/Physical Therapy Manager Instructions: Discharge with [facility] nurse. Phone number is [phone] Forms: Portal Instructions Follow Up Appointments: January 13 @ 10am with Kaylene López NP (Aida Blanc no longer there) [phone]
--- NOTE | 2025-01-07 08:37 | CM.NOTE ---
Rounds made with Dr. Zepeda, possible discharge this afternoon after diuretic. Pt will f/u with PCP and corrugator machine operator.
[2025-01-07 09:00] VITALS: BP 128/83; PULSE 87; TEMP 36.4; O2SAT 90
[2025-01-07] MEDS: OMEPRAZOLE 20 MG CAPSULE.DR PO (09:03)
[2025-01-07] MEDS: PREGABALIN 75 MG CAPSULE PO (09:03)
[2025-01-07] MEDS: FUROSEMIDE 40 MG TABLET PO (09:03)
[2025-01-07] MEDS: LISINOPRIL 10 MG TABLET PO (09:03)
[2025-01-07] MEDS: PREDNISONE 20 MG TABLET 30 MG PO (09:03)
[2025-01-07] MEDS: MONTELUKAST SODIUM 10 MG TABLET PO (09:03)
[2025-01-07] MEDS: SOLIFENACIN SUCCINATE 10 MG TABLET PO (09:04)
[2025-01-07] MEDS: HEPARIN SODIUM (PORCINE) 5,000 UNIT/ML VIAL 5000 UNIT SUBQ (09:04)
[2025-01-07] MEDS: MAGNESIUM OXIDE 400 MG TABLET PO (09:04)
[2025-01-07] MEDS: POTASSIUM CHLORIDE 10 MEQ ER TABLET 20 MEQ PO (09:04)
[2025-01-07] MEDS: NYSTATIN 15 GM POWDER 1 APPLIC TOPICAL (09:04)
[2025-01-07] MEDS: PAROXETINE HCL 20 MG TABLET 30 MG PO (09:04)
--- NOTE | 2025-01-07 10:23 | SWNOTE1 ---
JAZMIN faxed over dc med rec, dc summary, and CRF to [facility] . Pt is going home with [facility] nurse.
[2025-01-07] MEDS: BUDESONIDE 0.5 MG/2 ML AMPULE NEB IH (10:57)
[2025-01-07 10:59] VITALS: O2SAT 91
--- NOTE | 2025-01-07 11:19 | SWNOTE1 ---
Pt will need increased to 4 liters of home oxygen. SW to send script and documentation to [facility].
[2025-01-07 12:08] VITALS: O2SAT 80; O2SAT 85; O2SAT 91
--- NOTE | 2025-01-07 12:38 | SWNOTE1 ---
SW faxed walk test, script, and documentation to [facility] for increasing oxygen to 4 liters.
--- NOTE | 2025-01-09 15:16 | CM.DCFOLLOWU ---
01/09- re-admission to hospital
== END 2025-01-07 13:57 | disposition home health service (06) | DRG 193 ==
LOC: ER 17:08 → MS 19:13
PROVIDERS: Family Medicine; Admitting Provider Family Medicine; Emergency Provider Emergency Medicine; Visit Provider Family Medicine
DX: J18.9 Pneumonia, unspecified organism (principal); J96.21 Acute and chronic respiratory failure with hypoxia; J44.0 Chronic obstructive pulmonary disease with (acute) lower respiratory infection; J44.1 Chronic obstructive pulmonary disease with (acute) exacerbation; E44.0 Moderate protein-calorie malnutrition; I50.32 Chronic diastolic (congestive) heart failure; I11.0 Hypertensive heart disease with heart failure; E83.42 Hypomagnesemia; E87.6 Hypokalemia; B34.9 Viral infection, unspecified; F33.42 Major depressive disorder, recurrent, in full remission; Z66 Do not resuscitate; I25.10 Atherosclerotic heart disease of native coronary artery without angina pectoris; E66.01 Morbid (severe) obesity due to excess calories; M16.11 Unilateral primary osteoarthritis, right hip; R53.1 Weakness; M96.1 Postlaminectomy syndrome, not elsewhere classified; Z85.820 Personal history of malignant melanoma of skin; Z99.81 Dependence on supplemental oxygen; Z79.899 Other long term (current) drug therapy; Z79.51 Long term (current) use of inhaled steroids; Z68.39 Body mass index [BMI] 39.0-39.9, adult
CPT/HCPCS: 36415; 71045; 71046; 71275; 80048; 80053; 82800; 82948; 83735; 83880; 84484; 85007; 85025; 85027; 87040; 87045; 87046; 87070; 87205; 87420; 87427; 87493; 87804; 87811; 93005; 93306; 94640; 94667; 94668; 94761; 96365; 96367; 96375; 97161; 97165; 97530; 97535; 99285; G0328; J0360; J0456; J0696; J1644; J1940; J2543; J2919; J7512; Q9967

== ENCOUNTER 2025-01-08 13:33 | Inpatient (IN) | payer MEDICARE, MEDICAID, SELFPAY ==
[2025-01-08] VITALS (32 sets, daily range): BP systolic 104–141; BP diastolic 50–87; PULSE 61–93; TEMP 36.4–36.8; O2SAT 86–96; BMI 39.5
--- NOTE | 2025-01-08 13:42 | ECG_ITS ---
[facility] Test Date: 2025-01-08 Pat Name: JHONATAN MNOTOYA Department: Room: - Gender: Female Lift Manager: : [id number] Requested By: [id number] Order Number: [id number] Reading MD: ALICIA TOUSSAINT M.D. Measurements Intervals [place] Rate: 88 P: 68 DC: 122 QRS: 40 QRSD: 104 T: 87 QT: 382 QTc: 428 Interpretive Statements 1100 Sinus rhythm [address] depression [address] & [place] abnormality 9150 abnormal ECG Compared to ECG 01/02/2025 15:48:27 No significant changes Electronically Signed On 01-09-2025 6:31:49 EST by ALICIA TOUSSAINT M.D.
[2025-01-08] MEDS: IPRATROPIUM/ALBUTEROL SULFATE 3 ML AMPUL.NEB IH ×2 (13:57→23:35)
[2025-01-08 14:18] LABS: Hematocrit 43.2 % (36.0-48.0); Hemoglobin 14.1 g/dL (12.0-16.0); Mean Corpuscular HGB Conc 32.6 g/dL (29.9-35.2); Mean Corpuscular Hemoglobin 30.5 pg (26.7-34.0); Mean Corpuscular Volume 93.3 fL (81.0-99.0); Mean Platelet Volume 9.1 fL (9.5-13.5); Platelet Count 462 10^3/uL (150-450); Red Blood Count 4.63 10^6/uL (4.20-5.40); Red Cell Distribution Width 14.4 % (11.0-15.0); White Blood Count 21.8 10^3/uL (4.0-11.0)
[2025-01-08 14:36] LABS: Alanine Aminotransferase 19 U/L (14-59); Albumin Globulin Ratio 0.8; Alkaline Phosphatase 92 U/L (46-116); Aspartate Amino Transferase 16 U/L (15-37); BUN Creatinine Ratio 20.9; Bilirubin Total 0.4 mg/dL (0.2-1.0); Calcium 8.4 mg/dL (8.5-10.1); Carbon Dioxide 30.6 mmol/L (21.0-32.0); Chloride 97 mmol/L (98-107); Estimated GFR (African America 31 (>=60 mL/min/1.73m^2); Estimated GFR (Non-African Ame 25 (>=60 mL/min/1.73m^2); Glucose 231 mg/dL (74-106); Potassium 4.6 mmol/L (3.5-5.1); Sodium 136 mmol/L (136-145)
[2025-01-08 14:44] LABS: Band Neutrophils Absolute 0.2 10^3/uL (0.0-0.3); Lymphocytes Absolute Manual 0.65 10^3/uL (1.20-3.80); Metamyelocytes Absolute Manual 0.43; Monocytes Absolute Manual 0.87 10^3/uL (0.30-0.80); Segmented Neut Absolute Manual 19.62 10^3/uL (1.4-6.5); Troponin I High Sensitivity 21.8 pg/mL (4.0-51.3)
[2025-01-08 14:55] LABS: ABG PCO2 49.4 mmHg (35.0-45.0); Base Excess ABG 7.5 mmol/L (-2.0-2.0); Oxygen Saturation ABG 88.7 %
[2025-01-08 14:56] LABS: Allen Test POSITIVE (POSITIVE); Liters per Minute 6; O2 Mode NC; Puncture Site R RAD
[2025-01-08 14:57] LABS: PO2 ABG 56.4 mmHg (80.0-100.0)
[2025-01-08] MEDS: VANCOMYCIN HCL 1,000 MG in 0.9 % SODIUM CHLORIDE 250 ML 250 MG IV (16:02)
--- NOTE | 2025-01-08 16:26 | ED.GENADUL1 ---
HPI HPI - General Adult General Chief complaint: Shortness of Breath/Dyspnea Stated complaint: SOB Time Seen by Provider: 01/08/25 13:37 Source: patient Mode of arrival: Wheelchair Limitations: no limitations History of Present Illness HPI narrative: Patient presents to ED complaining of shortness of breath. Patient was just discharged yesterday from the hospital for pneumonia. Patient states she went home and was feeling worse again so she came back and today. Upon arrival she was tachypneic and wheezing. Respiratory was called to the room immediately. Patient had Rales and was hypoxic. She is on 3 L at home but she was still hypoxic in the mid to the upper 80s. We turned her up to 4 L and she was still about 86%. I then turned her up to 6 L and she would fluctuate from 89% to 92%. A DuoNeb was ordered and I requested that respiratory placed the patient on Vapotherm for respiratory support. Patient states she has had a bad cough although her cough is chronic she said it seems worse recently. She denies fevers at this time. Related Data Home Medications ?Medication ?Instructions ?Recorded ?Confirmed fluticasone fur. 200 mcg-umeclid 1 inh inhalation Q24H COPD 04/10/23 01/08/25 62.5 mcg-vilant 25 mcg inhalat.powder (Trelegy Ellipta) magnesium oxide 400 mg (241.3 mg 400 mg PO DAILY 04/10/23 01/08/25 magnesium) tablet omeprazole 20 mg capsule,delayed 20 mg PO BID 04/10/23 01/08/25 release montelukast 10 mg tablet 10 mg PO DAILY 09/14/23 01/08/25 pramipexole 0.25 mg tablet 0.25 mg PO QPM PRN restless leg(s) 09/14/23 01/08/25 (Mirapex) paroxetine HCl 30 mg tablet 30 mg PO QDAY 11/25/23 01/02/25 pregabalin 75 mg capsule 75 mg PO BID 11/25/23 01/08/25 solifenacin 10 mg tablet 10 mg PO QDAY 11/25/23 01/08/25 trazodone 100 mg tablet 100 mg PO .qhs 11/25/23 01/08/25 baclofen 10 mg tablet 10 mg PO Q8H 02/03/24 01/08/25 albuterol sulfate 2.5 mg/3 mL 2.5 mg inhalation QID PRN 06/06/24 01/08/25 (0.083 %) solution for nebulization shortness of breath or wheezing sodium chloride 0.9 % for 2.5 ml inhalation Q8H PRN 06/28/24 01/08/25 nebulization shortness of breath or wheezing latanoprost 0.005 % eye drops 1 drp ophthalmic (eye) .HS 08/09/24 01/08/25 Previous Rx's ?Medication ?Instructions ?Recorded amoxicillin 875 mg-potassium 1 tab PO Q12H #20 tabs 01/07/25 clavulanate 125 mg tablet prednisone 10 mg tablet 30 mg (3 x 10 mg) PO DAILY #20 tabs 01/07/25 Allergies Allergy/AdvReac Type Severity Reaction Status Date / Time No Known Drug Allergies Allergy Verified 01/02/25 15:47 Opioid HPI Opioid Management Most Recent Opioid Data: Last Pain Scale 8 01/04/25 21:00 01/04/25 Last Pain Intensity 0 08/10/24 09:52 08/10/24 Last Pain Assessment 01/07/25 13:38 Last ORT Total Score 1 01/02/25 19:37 01/02/25 Last ORT Risk Category Low Risk 01/02/25 19:37 01/02/25 Review of Systems ROS Status of ROS 10 or more systems reviewed and unremarkable except as noted in history and below [facility] Medical History (Updated 01/08/25 @ 16:31 by Cheyenne Logan DO) Melanoma ?C43.9 - Malignant melanoma of skin, unspecified (ICD-10) Mediastinal lymphadenopathy ?R59.0 - Localized enlarged lymph nodes (ICD-10) Tracheobronchomalacia ?J39.8 - Other specified diseases of upper respiratory tract (ICD-10) Restrictive lung disease ?J98.4 - Other disorders of lung (ICD-10) CAD (coronary artery disease) ?I25.10 - Atherosclerotic heart disease of [place] coronary artery without angina pectoris (ICD-10) Chronic heart failure with preserved ejection fraction (HFpEF) ?I50.32 - Chronic diastolic (congestive) heart failure (ICD-10) Hypertension ?I10 - Essential (primary) hypertension (ICD-10) Acute exacerbation of COPD with asthma ?J44.1 - Chronic obstructive pulmonary disease with (acute) exacerbation (ICD-10) ?J45.901 - Unspecified asthma with (acute) exacerbation (ICD-10) Lumbar radiculopathy ?M54.16 - Radiculopathy, lumbar region (ICD-10) Encounter for long-term opiate analgesic use ?Z79.891 - group home (current) use of opiate analgesic (ICD-10) Failed back syndrome ?M96.1 - Postlaminectomy syndrome, not elsewhere classified (ICD-10) Acute exacerbation of chronic low back pain ?M54.50 - Low back pain, unspecified (ICD-10) ?G89.29 - Other chronic pain (ICD-10) Thoracic spondylosis ?M47.814 - Spondylosis without myelopathy or radiculopathy, thoracic region (ICD-10) Hypoxia ?R09.02 - Hypoxemia (ICD-10) URI (upper respiratory infection) ?J06.9 - Acute upper respiratory infection, unspecified (ICD-10) Orthostasis ?I95.1 - Orthostatic hypotension (ICD-10) Community acquired pneumonia ?J18.9 - Pneumonia, unspecified organism (ICD-10) Severe malnutrition ?E43 - Unspecified severe protein-calorie malnutrition (ICD-10) Acute exacerbation of chronic obstructive pulmonary disease (COPD) ?J44.1 - Chronic obstructive pulmonary disease with (acute) exacerbation (ICD-10) Severe persistent asthma with exacerbation ?J45.51 - Severe persistent asthma with (acute) exacerbation (ICD-10) Morbid obesity ?E66.01 - Morbid (severe) obesity due to excess calories (ICD-10) Other pulmonary collapse ?J98.19 - Other pulmonary collapse (ICD-10) 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 - Critical illness myopathy (ICD-10) Chronic respiratory failure with hypoxia ?J96.11 - Chronic respiratory failure with hypoxia (ICD-10) Bronchitis ?J40 - Bronchitis, not specified as acute or chronic (ICD-10) Acute exacerbation of chronic obstructive pulmonary disease ?J44.1 - Chronic obstructive pulmonary disease with (acute) exacerbation (ICD-10) Myofascial pain ?M79.18 - Myalgia, other site (ICD-10) Greater trochanteric bursitis ?M70.60 - Trochanteric bursitis, unspecified hip (ICD-10) Osteoarthritis of right hip ?M16.11 - Unilateral primary osteoarthritis, right hip (ICD-10) Lumbar spondylosis ?M47.816 - Spondylosis without myelopathy or radiculopathy, lumbar region (ICD-10) Lumbar postlaminectomy syndrome ?M96.1 - Postlaminectomy syndrome, not elsewhere classified (ICD-10) Lumbar stenosis with neurogenic claudication ?M48.062 - Spinal stenosis, lumbar region with neurogenic claudication (ICD-10) Depression ?F32.A - Depression, unspecified (ICD-10) Chronic low back pain ?M54.50 - Low back pain, unspecified (ICD-10) ?G89.29 - Other chronic pain (ICD-10) Hypoxia ?R09.02 - Hypoxemia (ICD-10) Heart murmur ?R01.1 - Cardiac murmur, unspecified (ICD-10) Chronic obstructive pulmonary disease ?J44.9 - Chronic obstructive pulmonary disease, unspecified (ICD-10) Asthma ?J45.909 - Unspecified asthma, uncomplicated (ICD-10) Surgical History H/O cataract removal with insertion of prosthetic lens ?Z98.49 - Cataract extraction status, unspecified eye (ICD-10) ?Z96.1 - Presence of intraocular lens (ICD-10) Status post hip surgery ?Z98.890 - Other specified postprocedural states (ICD-10) H/O foot surgery ?Z98.890 - Other specified postprocedural states (ICD-10) H/O tubal ligation ?Z98.51 - Tubal ligation status (ICD-10) History of lumbar fusion ?Z98.1 - Arthrodesis status (ICD-10) Family History Mother Family history of CHF (congestive heart failure) Family history of hypertension Father Family history of hypertension Family history of myocardial infarction Social History Within the past year, how often did you have a drink containing alcohol: never Score interpretation: A score less than 3 is consistent with normal alcohol consumption. Smoking status: Never smoker Non-prescribed substance use: denies use Previous occupational history: retired Highest level of school completed/degree received: Associate degree: occupational, technical, vocational program Are you now , , , , never or living with a partner: In a typical week, how many times do you talk on the telephone with family, friends, or neighbors: 3 or more times per week How often do you get together with friends or relatives: 3 or more times per week How often do you attend baptism or mu-ism services: 4 or more times per year Do you belong to any clubs or organizations such as baptism groups unions, [employer] or athletic groups, or school groups: no Total score: 2 Score interpretation: A score of greater than or equal to 2 indicates the lowest level of social isolation. Little interest or pleasure in doing things: not at all Feeling down, depressed, or hopeless: not at all Feel stressed/tense/nervous/anxious/difficulty sleeping: not at all Do you think of yourself as: straight/heterosexual Gender Identity: female Exam Narrative Exam Narrative: Time Seen: [] Vital Signs: [Per nurse's notes.] General: [Alert] Skin: [Warm, dry, no rash.] Head: [Normocephalic, atraumatic.] Neck: [Supple, trachea midline.] Eye: [Pupils are equal, round and reactive to light, extraocular movements are intact, normal conjunctiva.] Ears, nose, mouth and throat: oral mucosa moist. Cardiovascular: [Regular rate and rhythm, no murmur.] Respiratory: [Tachypnea, hypoxia, moderate respiratory distress, coarse breath sounds bilateral bases Gastrointestinal: [Soft, nontender, non distended, normal bowel sounds.] MSK: 5 out of 5 muscle strength x 4 extremities no calf pain or edema Lymphatics: [No lymphadenopathy.] Psychiatric: [Cooperative, appropriate mood & affect.] Neurological: [Alert and oriented to person, place, time, and situation, no focal neurological deficit observed.] Constitutional Vital Signs, click to edit/add: Last Vital Signs Temp 98.2 F 01/08/25 13:38 Pulse 77 01/08/25 16:10 Resp 21 H 01/08/25 16:10 BP 118/74 01/08/25 16:01 Pulse Ox 96 01/08/25 16:16 O2 Del Method Vapotherm 01/08/25 16:16 O2 Flow Rate 6 01/08/25 16:16 FiO2 100 01/08/25 14:45 Course Vital Signs Vital signs: Vital Signs Temperature 98.2 F 01/08/25 13:38 Pulse Rate 93 H 01/08/25 13:38 Respiratory Rate 24 H 01/08/25 13:38 Blood Pressure 117/70 01/08/25 13:38 Pulse Oximetry 91 L 01/08/25 13:38 Oxygen Delivery Method Nasal Cannula 01/08/25 13:38 Oxygen Delivery Flow Rate 6 01/08/25 13:38 Temperature 98.2 F 01/08/25 13:38 Pulse Rate 77 01/08/25 16:10 Respiratory Rate 21 H 01/08/25 16:10 Blood Pressure 118/74 01/08/25 16:01 Pulse Oximetry 96 01/08/25 16:16 Oxygen Delivery Method Vapotherm 01/08/25 16:16 Oxygen Delivery Flow Rate 6 01/08/25 16:16 Fraction of Inspired Oxygen 100 01/08/25 14:45 Medical Decision Making MDM Narrative Medical decision making narrative: Patient's labs show an elevated white blood cell count of 21. Patient is feeling better on Vapotherm. ABG prior to Vapotherm does show hypoxia. I spoke to Dr. Izaguirre who knows the patient well. He agrees with admission. Dr. Zepeda will admit the patient with him on his consultation. Patient's x-ray shows possible infiltrates and she does have a history of aspiration pneumonia. Patient will be placed on Vanco and Zosyn for pneumonia coverage. Continue respiratory treatments and continue Vapotherm. Patient comfortable with care plan for admission Dr. Zepeda accepts admission. Patient is stable prior to leaving ED. Differential Diagnosis Differential Diagnosis: COPD emphysema pneumonia aspiration hypoxia Medical Records Medical records reviewed: Yes I reviewed the patient's medical records Lab Data Lab results reviewed: Yes I reviewed the patient's lab results Labs: Lab Results 01/08/25 01/08/25 Range/Units 13:55 14:44 WBC 21.8 H (4.0-11.0) 10^3/uL RBC 4.63 (4.20-5.40) 10^6/uL Hgb 14.1 (12.0-16.0) g/dL Hct 43.2 (36.0-48.0) % MCV 93.3 (81.0-99.0) fL MCH 30.5 (26.7-34.0) pg MCHC 32.6 (29.9-35.2) g/dL RDW 14.4 (11.0-15.0) % Plt Count 462 H (150-450) 10^3/uL MPV 9.1 L (9.5-13.5) fL Seg Neuts % (Manual) 90.0 H (43.0-75.0) Band Neutrophils % 1.0 (0-5) % Lymphocytes % (Manual) 3.0 L (20.5-60.0) % Monocytes % (Manual) 4.0 (1.7-12.0) % Eosinophils % (Manual) 0.0 L (0.9-7.0) % Basophils % (Manual) 0.0 L (0.2-2.0) % Metamyelocytes % 2.0 Neutrophils # (Manual) 19.62 H (1.4-6.5) 10^3/uL Band Neutrophils # 0.2 (0.0-0.3) 10^3/uL Lymphocytes # (Manual) 0.65 L (1.20-3.80) 10^3/uL Monocytes # (Manual) 0.87 H (0.30-0.80) 10^3/uL Eosinophils # (Manual) 0.00 (0.00-0.70) 10^3/uL Basophils # (Manual) 0.00 (0.00-0.10) 10^3/uL Metamyelocytes # 0.43 Puncture Site R rad ABG pH 7.420 (7.350-7.450) ABG pCO2 49.4 H (35.0-45.0) mmHg ABG pO2 56.4 L* (80.0-100.0) mmHg ABG HCO3 32.0 H (22.0-26.0) mmol/L ABG O2 Saturation 88.7 % ABG Base Excess 7.5 H (-2.0-2.0) mmol/L Hardy Test Positive (POSITIVE) O2 Liters/Min 6 Sodium 136 (136-145) mmol/L Potassium 4.6 (3.5-5.1) mmol/L Chloride 97 L (98-107) mmol/L Carbon Dioxide 30.6 (21.0-32.0) mmol/L Anion Gap 13.0 BUN 41.0 H (7.0-18.0) mg/dL Creatinine 1.96 H (0.55-1.02) mg/dL Est GFR ( Amer) 31 L (>=60 mL/min/1.73m^2) Est GFR (Non-Af Amer) 25 L (>=60 mL/min/1.73m^2) BUN/Creatinine Ratio 20.9 Glucose 231 H (74-106) mg/dL Calcium 8.4 L (8.5-10.1) mg/dL Total Bilirubin 0.4 (0.2-1.0) mg/dL AST 16 (15-37) U/L ALT 19 (14-59) U/L Alkaline Phosphatase 92 (46-116) U/L Troponin I High Sens 21.8 (4.0-51.3) pg/mL NT-Pro-B Natriuret Pep 325.0 (<=900.0) pg/mL Total Protein 7.0 (6.4-8.2) g/dL Albumin 3.0 L (3.4-5.0) g/dL Globulin 4.0 g/dL Albumin/Globulin Ratio 0.8 Discharge Plan Discharge Chief Complaint: Shortness of Breath/Dyspnea Clinical Impression: Acute exacerbation of chronic obstructive pulmonary disease, Hypoxemia Pneumonia Qualifiers: Pneumonia type: due to unspecified organism Laterality: bilateral Lung location: lower lobe of lung Qualified Code(s): J18.9 - Pneumonia, unspecified organism Patient Disposition: Admitted As Inpatient Time of Disposition Decision: 16:31 Condition: Fair Prescriptions / Home Meds: No Action albuterol sulfate 2.5 mg /3 mL (0.083 %) solution for nebulization 2.5 mg inhalation QID PRN (Reason: shortness of breath or wheezing) sodium chloride 0.9 % solution for nebulization 2.5 ml INHALATION Q8H PRN (Reason: shortness of breath or wheezing) latanoprost 0.005 % drops 1 drp OPHTHALMIC (EYE) .HS magnesium oxide 400 mg (241.3 mg magnesium) tablet 400 mg PO DAILY Rx Instructions: WITH FOOD omeprazole 20 mg capsule,delayed release(DR/EC) 20 mg PO BID Trelegy Ellipta 200-62.5-25 mcg blister with device 1 inh INHALATION Q24H pramipexole [Mirapex] 0.25 mg tablet 0.25 mg PO QPM PRN (Reason: restless leg(s)) Rx Instructions: administer 2 - 3 hours before bedtime montelukast 10 mg tablet 10 mg PO DAILY paroxetine HCl 30 mg tablet 30 mg PO QDAY pregabalin 75 mg capsule 75 mg PO BID solifenacin 10 mg tablet 10 mg PO QDAY trazodone 100 mg tablet 100 mg PO .qhs baclofen 10 mg tablet 10 mg PO Q8H amoxicillin-pot clavulanate 875-125 mg tablet 1 tab PO Q12H Qty: 20 0RF Patient Comments: 01/07/25-01/16/25 prednisone 10 mg tablet 30 mg PO DAILY Qty: 20 0RF Rx Instructions: 3/day for 3 days, 2/day for 3 days, 1/day for 3 days, 1/2 /day for 4 days Print Language: Lithuanian Referrals: Kaylene López AUTOMOTIVE PARTS COORDINATOR [Primary Care Provider] - 1 week
--- NOTE | 2025-01-08 17:05 | PC.NURSE ---
pt transported upstairs by this RN. bedside report given to Mary Carmen CHRISTIANSON, all questions answered. RT at bedside also.
--- NOTE | 2025-01-08 17:36 | PM.PLCN ---
History of Present Illness History of Present Illness Consult date: 01/08/25 Requesting physician: Cheyenne Logan Reason for consult: pneumonia Chief complaint: SOB, HYPOXIA, PNEUMONIA Narrative: 69yo female well-known to me was just discharged from [facility] yesterday. She called the office today to schedule an appointment, but could not make it this afternoon. She came to the ER and was hypoxic despite on her baseline O2. WBC also jumped from ~12k to 22k. She was placed on vapotherm in the ER and feels better on it currently. She was having sweats at home, with increased ELIZABETH. Having difficulty expectorating despite saline nebs. On Trelegy @ home. Review of Systems ROS Status of ROS 10 or more systems reviewed and unremarkable except as noted in history and below [facility] Medical History (Updated 01/08/25 @ 17:42 by Corbin Lopes DO) Melanoma ?C43.9 - Malignant melanoma of skin, unspecified (ICD-10) Mediastinal lymphadenopathy ?R59.0 - Localized enlarged lymph nodes (ICD-10) Tracheobronchomalacia ?J39.8 - Other specified diseases of upper respiratory tract (ICD-10) Restrictive lung disease ?J98.4 - Other disorders of lung (ICD-10) CAD (coronary artery disease) ?I25.10 - Atherosclerotic heart disease of [place] coronary artery without angina pectoris (ICD-10) Chronic heart failure with preserved ejection fraction (HFpEF) ?I50.32 - Chronic diastolic (congestive) heart failure (ICD-10) Hypertension ?I10 - Essential (primary) hypertension (ICD-10) Acute exacerbation of COPD with asthma ?J44.1 - Chronic obstructive pulmonary disease with (acute) exacerbation (ICD-10) ?J45.901 - Unspecified asthma with (acute) exacerbation (ICD-10) Lumbar radiculopathy ?M54.16 - Radiculopathy, lumbar region (ICD-10) Encounter for long-term opiate analgesic use ?Z79.891 - intermediate (current) use of opiate analgesic (ICD-10) Failed back syndrome ?M96.1 - Postlaminectomy syndrome, not elsewhere classified (ICD-10) Acute exacerbation of chronic low back pain ?M54.50 - Low back pain, unspecified (ICD-10) ?G89.29 - Other chronic pain (ICD-10) Thoracic spondylosis ?M47.814 - Spondylosis without myelopathy or radiculopathy, thoracic region (ICD-10) Hypoxia ?R09.02 - Hypoxemia (ICD-10) URI (upper respiratory infection) ?J06.9 - Acute upper respiratory infection, unspecified (ICD-10) Orthostasis ?I95.1 - Orthostatic hypotension (ICD-10) Community acquired pneumonia ?J18.9 - Pneumonia, unspecified organism (ICD-10) Severe malnutrition ?E43 - Unspecified severe protein-calorie malnutrition (ICD-10) Acute exacerbation of chronic obstructive pulmonary disease (COPD) ?J44.1 - Chronic obstructive pulmonary disease with (acute) exacerbation (ICD-10) Severe persistent asthma with exacerbation ?J45.51 - Severe persistent asthma with (acute) exacerbation (ICD-10) Morbid obesity ?E66.01 - Morbid (severe) obesity due to excess calories (ICD-10) Other pulmonary collapse ?J98.19 - Other pulmonary collapse (ICD-10) 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 - Critical illness myopathy (ICD-10) Chronic respiratory failure with hypoxia ?J96.11 - Chronic respiratory failure with hypoxia (ICD-10) Bronchitis ?J40 - Bronchitis, not specified as acute or chronic (ICD-10) Acute exacerbation of chronic obstructive pulmonary disease ?J44.1 - Chronic obstructive pulmonary disease with (acute) exacerbation (ICD-10) Myofascial pain ?M79.18 - Myalgia, other site (ICD-10) Greater trochanteric bursitis ?M70.60 - Trochanteric bursitis, unspecified hip (ICD-10) Osteoarthritis of right hip ?M16.11 - Unilateral primary osteoarthritis, right hip (ICD-10) Lumbar spondylosis ?M47.816 - Spondylosis without myelopathy or radiculopathy, lumbar region (ICD-10) Lumbar postlaminectomy syndrome ?M96.1 - Postlaminectomy syndrome, not elsewhere classified (ICD-10) Lumbar stenosis with neurogenic claudication ?M48.062 - Spinal stenosis, lumbar region with neurogenic claudication (ICD-10) Depression ?F32.A - Depression, unspecified (ICD-10) Chronic low back pain ?M54.50 - Low back pain, unspecified (ICD-10) ?G89.29 - Other chronic pain (ICD-10) Hypoxia ?R09.02 - Hypoxemia (ICD-10) Heart murmur ?R01.1 - Cardiac murmur, unspecified (ICD-10) Chronic obstructive pulmonary disease ?J44.9 - Chronic obstructive pulmonary disease, unspecified (ICD-10) Asthma ?J45.909 - Unspecified asthma, uncomplicated (ICD-10) Surgical History H/O cataract removal with insertion of prosthetic lens ?Z98.49 - Cataract extraction status, unspecified eye (ICD-10) ?Z96.1 - Presence of intraocular lens (ICD-10) Status post hip surgery ?Z98.890 - Other specified postprocedural states (ICD-10) H/O foot surgery ?Z98.890 - Other specified postprocedural states (ICD-10) H/O tubal ligation ?Z98.51 - Tubal ligation status (ICD-10) History of lumbar fusion ?Z98.1 - Arthrodesis status (ICD-10) Family History Mother Family history of CHF (congestive heart failure) Family history of hypertension Father Family history of hypertension Family history of myocardial infarction Social History (Updated 01/08/25 @ 17:25 by Yuni Loza RN) Within the past year, how often did you have a drink containing alcohol: never Score interpretation: A score less than 3 is consistent with normal alcohol consumption. Smoking status: Never smoker Second hand tobacco smoke exposure: No Non-prescribed substance use: denies use Previous occupational history: retired Highest level of school completed/degree received: Associate degree: occupational, technical, vocational program Are you now , , , , never or living with a partner: In a typical week, how many times do you talk on the telephone with family, friends, or neighbors: 3 or more times per week How often do you get together with friends or relatives: 3 or more times per week How often do you attend rastafarian or baptist services: 4 or more times per year Do you belong to any clubs or organizations such as rastafarian groups unions, fraternal or athletic groups, or school groups: no Total score: 2 Score interpretation: A score of greater than or equal to 2 indicates the lowest level of social isolation. Little interest or pleasure in doing things: not at all Feeling down, depressed, or hopeless: not at all Feel stressed/tense/nervous/anxious/difficulty sleeping: not at all Do you think of yourself as: straight/heterosexual Gender Identity: female Meds Home Medications and Allergies Home Medications ?Medication ?Instructions ?Recorded ?Confirmed ?Type fluticasone fur. 200 mcg-umeclid 1 inh inhalation Q24H COPD 04/10/23 01/08/25 History 62.5 mcg-vilant 25 mcg inhalat.powder (Trelegy Ellipta) magnesium oxide 400 mg (241.3 mg 400 mg PO DAILY 04/10/23 01/08/25 History magnesium) tablet omeprazole 20 mg capsule,delayed 20 mg PO BID 04/10/23 01/08/25 History release montelukast 10 mg tablet 10 mg PO DAILY 09/14/23 01/08/25 History pramipexole 0.25 mg tablet 0.25 mg PO QPM PRN restless leg(s) 09/14/23 01/08/25 History (Mirapex) paroxetine HCl 30 mg tablet 30 mg PO QDAY 11/25/23 01/02/25 History pregabalin 75 mg capsule 75 mg PO BID 11/25/23 01/08/25 History solifenacin 10 mg tablet 10 mg PO QDAY 11/25/23 01/08/25 History trazodone 100 mg tablet 100 mg PO .qhs 11/25/23 01/08/25 History baclofen 10 mg tablet 10 mg PO Q8H 02/03/24 01/08/25 History albuterol sulfate 2.5 mg/3 mL 2.5 mg inhalation QID PRN 06/06/24 01/08/25 History (0.083 %) solution for nebulization shortness of breath or wheezing sodium chloride 0.9 % for 2.5 ml inhalation Q8H PRN 06/28/24 01/08/25 History nebulization shortness of breath or wheezing latanoprost 0.005 % eye drops 1 drp ophthalmic (eye) .HS 08/09/24 01/08/25 History amoxicillin 875 mg-potassium 1 tab PO Q12H #20 tabs 01/07/25 01/08/25 Rx clavulanate 125 mg tablet prednisone 10 mg tablet 30 mg (3 x 10 mg) PO DAILY #20 tabs 01/07/25 01/08/25 Rx Allergies Allergy/AdvReac Type Severity Reaction Status Date / Time No Known Drug Allergies Allergy Verified 01/02/25 15:47 Exam Constitutional Vital Signs, click to edit/add: Last Vital Signs Temp 97.9 F 01/08/25 17:09 Pulse 76 01/08/25 17:09 Resp 22 H 01/08/25 17:09 BP 141/87 01/08/25 17:09 Pulse Ox 96 01/08/25 17:09 O2 Del Method Vapotherm 01/08/25 17:09 O2 Flow Rate 6 01/08/25 16:16 FiO2 80 01/08/25 17:09 Documenting provider has reviewed patient's vital signs: yes General appearance: ill appearing chronically HENMT Other: Wearing Vapotherm. Mild oral candidiasis - soft palate Chest Other: Palpable rhonchi upper lung [place] Respiratory Other: Mild tachypnea with shallow breaths. Diminished breath sounds. No wheezes. Diffuse rhonchi. Cardio Other: RRR GI Inspection: central obesity Neuro Motor exam: no tremor noted and no fasciculations Psych Attitude: calm and engaged Activity/motor behavior: appropriate eye contact Speech: normal speech Results Laboratory Findings ABG, PT/INR, D-dimer: ABG ABG pH 7.420 (7.350-7.450) 01/08/25 14:44 ABG pCO2 49.4 mmHg (35.0-45.0) H 01/08/25 14:44 ABG pO2 56.4 mmHg (80.0-100.0) L* 01/08/25 14:44 ABG O2 Saturation 88.7 % 01/08/25 14:44 Abnormal lab findings: Abnormal Labs 01/08/25 01/08/25 13:55 14:44 WBC 21.8 H Plt Count 462 H MPV 9.1 L Seg Neuts % (Manual) 90.0 H Lymphocytes % (Manual) 3.0 L Eosinophils % (Manual) 0.0 L Basophils % (Manual) 0.0 L Neutrophils # (Manual) 19.62 H Lymphocytes # (Manual) 0.65 L Monocytes # (Manual) 0.87 H ABG pCO2 49.4 H ABG pO2 56.4 L* ABG HCO3 32.0 H ABG Base Excess 7.5 H Chloride 97 L BUN 41.0 H Creatinine 1.96 H Est GFR ( Amer) 31 L Est GFR (Non-Af Amer) 25 L Glucose 231 H Calcium 8.4 L Albumin 3.0 L Assessment and Plan Assessment and Plan (1) HCAP (healthcare-associated pneumonia): Assessment and Plan: 1. HCAP. Present on admission. Marked spike in WBC from discharge yesterday, more symptomatic, difficulty clearing secretions. Was on Levaquin + Zosyn prior admission. Will change antibiotics to Vancomycin + Primaxin. Await cultures from sputum sample. 2. AECOPD. Change Trelegy to DuoNeb + Pulmicort. Solu-Medrol. 3. Acute on chronic hypoxic respiratory failure. Requiring Vapotherm. 4. 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 On aggressive pulmonary toilet at home. Continue NIV. Vest + IPV + PEP. Change sodium chloride from 0.9% to 3%. 5. Acquired tracheobronchomalacia. Associated with #3. Continue NIV. 6. Oral candidiasis. Associated with antibiotics/steroids last admission. Will return and worsen without treatment. Starting nystatin swish & swallow.
--- NOTE | 2025-01-08 18:07 | P.HP_ITS ---
HPI H&P: HPI History of Present Illness Chief complaint: SOB, HYPOXIA, PNEUMONIA Narrative: Patient was just discharged the day prior, this morning, woke up and having increasing cough and shortness of breath, presented to the emergency room with severe hypoxia and significant leukocytosis Opioid HPI Opioid Management Most Recent Pain and Opioid Data: Last Pain Scale 8 01/04/25 21:00 01/04/25 Last Pain Intensity 0 08/10/24 09:52 08/10/24 Last Pain Assessment 01/08/25 18:52 Last ORT Total Score 0 01/08/25 17:09 01/08/25 Last ORT Risk Category Low Risk 01/08/25 17:09 01/08/25 Review of Systems ROS Status of ROS 10 or more systems reviewed and unremark able except as noted in history and below [facility] Medical History (Updated 01/08/25 @ 17:42 by Corbin Lopes DO) Melanoma ?C43.9 - Malignant melanoma of skin, unspecified (ICD-10) Mediastinal lymphadenopathy ?R59.0 - Localized enlarged lymph nodes (ICD-10) Tracheobronchomalacia ?J39.8 - Other specified diseases of upper respiratory tract (ICD-10) Restrictive lung disease ?J98.4 - Other disorders of lung (ICD-10) CAD (coronary artery disease) ?I25.10 - Atherosclerotic heart disease of [place] coronary artery without angina pectoris (ICD-10) Chronic heart failure with preserved ejection fraction (HFpEF) ?I50.32 - Chronic diastolic (congestive) heart failure (ICD-10) Hypertension ?I10 - Essential (primary) hypertension (ICD-10) Acute exacerbation of COPD with asthma ?J44.1 - Chronic obstructive pulmonary disease with (acute) exacerbation (ICD-10) ?J45.901 - Unspecified asthma with (acute) exacerbation (ICD-10) Lumbar radiculopathy ?M54.16 - Radiculopathy, lumbar region (ICD-10) Encounter for long-term opiate analgesic use ?Z79.891 - penitentiary (current) use of opiate analgesic (ICD-10) Failed back syndrome ?M96.1 - Postlaminectomy syndrome, not elsewhere classified (ICD-10) Acute exacerbation of chronic low back pain ?M54.50 - Low back pain, unspecified (ICD-10) ?G89.29 - Other chronic pain (ICD-10) Thoracic spondylosis ?M47.814 - Spondylosis without myelopathy or radiculopathy, thoracic region (ICD-10) Hypoxia ?R09.02 - Hypoxemia (ICD-10) URI (upper respiratory infection) ?J06.9 - Acute upper respiratory infection, unspecified (ICD-10) Orthostasis ?I95.1 - Orthostatic hypotension (ICD-10) Community acquired pneumonia ?J18.9 - Pneumonia, unspecified organism (ICD-10) Severe malnutrition ?E43 - Unspecified severe protein-calorie malnutrition (ICD-10) Acute exacerbation of chronic obstructive pulmonary disease (COPD) ?J44.1 - Chronic obstructive pulmonary disease with (acute) exacerbation (ICD-10) Severe persistent asthma with exacerbation ?J45.51 - Severe persistent asthma with (acute) exacerbation (ICD-10) Morbid obesity ?E66.01 - Morbid (severe) obesity due to excess calories (ICD-10) Other pulmonary collapse ?J98.19 - Other pulmonary collapse (ICD-10) 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 - Critical illness myopathy (ICD-10) Chronic respiratory failure with hypoxia ?J96.11 - Chronic respiratory failure with hypoxia (ICD-10) Bronchitis ?J40 - Bronchitis, not specified as acute or chronic (ICD-10) Acute exacerbation of chronic obstructive pulmonary disease ?J44.1 - Chronic obstructive pulmonary disease with (acute) exacerbation (ICD-10) Myofascial pain ?M79.18 - Myalgia, other site (ICD-10) Greater trochanteric bursitis ?M70.60 - Trochanteric bursitis, unspecified hip (ICD-10) Osteoarthritis of right hip ?M16.11 - Unilateral primary osteoarthritis, right hip (ICD-10) Lumbar spondylosis ?M47.816 - Spondylosis without myelopathy or radiculopathy, lumbar region (ICD-10) Lumbar postlaminectomy syndrome ?M96.1 - Postlaminectomy syndrome, not elsewhere classified (ICD-10) Lumbar stenosis with neurogenic claudication ?M48.062 - Spinal stenosis, lumbar region with neurogenic claudication (ICD- 10) Depression ?F32.A - Depression, unspecified (ICD-10) Chronic low back pain ?M54.50 - Low back pain, unspecified (ICD-10) ?G89.29 - Other chronic pain (ICD-10) Hypoxia ?R09.02 - Hypoxemia (ICD-10) Heart murmur ?R01.1 - Cardiac murmur, unspecified (ICD-10) Chronic obstructive pulmonary disease ?J44.9 - Chronic obstructive pulmonary disease, unspecified (ICD-10) Asthma ?J45.909 - Unspecified asthma, uncomplicated (ICD-10) Surgical History H/O cataract removal with insertion of prosthetic lens ?Z98.49 - Cataract extraction status, unspecified eye (ICD-10) ?Z96.1 - Presence of intraocular lens (ICD-10) Status post hip surgery ?Z98.890 - Other specified postprocedural states (ICD-10) H/O foot surgery ?Z98.890 - Other specified postprocedural states (ICD-10) H/O tubal ligation ?Z98.51 - Tubal ligation status (ICD-10) History of lumbar fusion ?Z98.1 - Arthrodesis status (ICD-10) Family History Mother Family history of CHF (congestive heart failure) Family history of hypertension Father Family history of hypertension Family history of myocardial infarction Social History (Updated 01/08/25 @ 17:25 by Yuni Loza RN) Within the past year, how often did you have a drink containing alcohol: never Score interpretation: A score less than 3 is consistent with normal alcohol consumption. Smoking status: Never smoker Second hand tobacco smoke exposure: No Non-prescribed substance use: denies use Previous occupational history: retired Highest level of school completed/degree received: Associate degree: occupational, technical, vocational program Are you now , , , , never or living with a partner: In a typical week, how many times do you talk on the telephone with family, friends, or neighbors: 3 or more times per week How often do you get together with friends or relatives: 3 or more times per week How often do you attend temple or congregational services: 4 or more times per year Do you belong to any clubs or organizations such as temple groups unions, fraternal or athletic groups, or school groups: no Total score: 2 Score interpretation: A score of greater than or equal to 2 indicates the lowest level of social isolation. Little interest or pleasure in doing things: not at all Feeling down, depressed, or hopeless: not at all Feel stressed/tense/nervous/anxious/difficulty sleeping: not at all Do you think of yourself as: straight/heterosexual Gender Identity: female Meds Home Medications and Allergies Home Medications ?Medication ?Instructions ?Recorded ?Confirmed ?Type fluticasone fur. 200 mcg-umeclid 1 inh inhalation Q24H COPD 04/10/23 01/08/25 History 62.5 mcg-vilant 25 mcg inhalat.powder (Trelegy Ellipta) magnesium oxide 400 mg (241.3 mg 400 mg PO DAILY 04/10/23 01/08/25 History magnesium) tablet omeprazole 20 mg capsule,delayed 20 mg PO BID 04/10/23 01/08/25 History release montelukast 10 mg tablet 10 mg PO DAILY 09/14/23 01/08/25 History pramipexole 0.25 mg tablet 0.25 mg PO QPM PRN restless leg(s) 09/14/23 01/08/25 History (Mirapex) paroxetine HCl 30 mg tablet 30 mg PO QDAY 11/25/23 01/02/25 History pregabalin 75 mg capsule 75 mg PO BID 11/25/23 01/08/25 History solifenacin 10 mg tablet 10 mg PO QDAY 11/25/23 01/08/25 History trazodone 100 mg tablet 100 mg PO .qhs 11/25/23 01/08/25 History baclofen 10 mg tablet 10 mg PO Q8H 02/03/24 01/08/25 History albuterol sulfate 2.5 mg/3 mL 2.5 mg inhalation QID PRN 06/06/24 01/08/25 History (0.083 %) solution for nebulization shortness of breath or wheezing sodium chloride 0.9 % for 2.5 ml inhalation Q8H PRN 06/28/24 01/08/25 History nebulization shortness of breath or wheezing latanoprost 0.005 % eye drops 1 drp ophthalmic (eye) .HS 08/09/24 01/08/25 History amoxicillin 875 mg-potassium 1 tab PO Q12H #20 tabs 01/07/25 01/08/25 Rx clavulanate 125 mg tablet prednisone 10 mg tablet 30 mg (3 x 10 mg) PO DAILY #20 tabs 01/07/25 01/08/25 Rx Allergies Allergy/AdvReac Type Severity Reaction Status Date / Time No Known Drug Allergies Allergy Verified 01/02/25 15:47 Exam Constitutional Vital Signs, click to edit/add: Last Vital Signs Temp 97.9 F 01/08/25 17:09 Pulse 69 01/08/25 17:53 Resp 22 H 01/08/25 17:09 BP 141/87 01/08/25 17:09 Pulse Ox 96 01/08/25 17:09 O2 Del Method Vapotherm 01/08/25 17:09 O2 Flow Rate 6 01/08/25 16:16 FiO2 80 01/08/25 17:09 Documenting provider has reviewed patient's vital signs: yes Common normals: apparent distress (Mild to moderate respiratory distress) Respiratory Common normals: abnormal respiratory effort (Mild to moderate respiratory distress) Auscultation: rhonchi and wheezes Cardio Common normals: regular rate and regular rhythm Extremity Common normals: abnormal to inspection (Maybe trace edema) Results Labs Labs: Short CBC 01/08/25 Range/Units 13:55 WBC 21.8 H (4.0-11.0) 10^3/uL Hgb 14.1 (12.0-16.0) g/dL Hct 43.2 (36.0-48.0) % Plt Count 462 H (150-450) 10^3/uL BMP 01/08/25 13:55 Sodium 136 Potassium 4.6 Chloride 97 L Carbon Dioxide 30.6 BUN 41.0 H Creatinine 1.96 H Glucose 231 H Calcium 8.4 L Liver Function 01/08/25 Range/Units 13:55 Total Bilirubin 0.4 (0.2-1.0) mg/dL AST 16 (15-37) U/L ALT 19 (14-59) U/L Alkaline Phosphatase 92 (46-116) U/L Albumin 3.0 L (3.4-5.0) g/dL ABG ABG results: 01/08/25 14:44 ABG pH 7.420 ABG pCO2 49.4 H ABG pO2 56.4 L* ABG HCO3 32.0 H ABG O2 Saturation 88.7 ABG Base Excess 7.5 H Assessment and Plan Assessment and Plan (1) HCAP (healthcare-associated pneumonia): Plan Admission findings: Sinus tachycardia, respiratory distress, severe hypoxia with O2 sat of 86% on 4 L, requiring Vapotherm with O2 supplemented at 80% Acute hypoxia with healthcare acquired pneumonia-continue with antibiotics prescribed by pulmonology, Acute exacerbation of chronic hypoxic respiratory failure secondary to the healthcare acquired pneumonia as outlined above-continue plan per pulmonology Hypomagnesemia: Monitor Osteoarthritis of right hip: Continue with home medications Depression: Continue with home medications Chronic heart failure with preserved ejection fraction (HFpEF): Currently no signs of fluid overload, BNP is much improved from previous Moderate protein calorie malnutrition-monitor with diet Hypertension-continue with medications Admission status: Patient with recent discharge for community-acquired pneumonia now presenting with healthcare acquired pneumonia with significant hypoxia and significant leukocytosis with left shift consistent with bacterial process, medically necessary treatment will span 2 midnights. Inpatient status
[2025-01-08 19:14] LABS: Lactate/Lactic Acid 1.5 mmol/L (0.4-2.0)
[2025-01-08 19:18] LABS: Magnesium 2.1 mg/dL (1.8-2.4)
[2025-01-08 19:24] LABS: Internal Control Within Normal Limits
[2025-01-08 19:26] LABS: SARS-CoV-2 Ag POSITIVE (NEGATIVE)
[2025-01-08 19:27] LABS: Influenza Virus A Antigen Negative; Influenza Virus B Antigen Negative; Internal Control Within Normal Limits; Respiratory Syncytial Virus Not Detected (NOT DETECTE)
[2025-01-08] MEDS: TRAZODONE HCL 50 MG TABLET 100 MG PO (21:57)
[2025-01-08] MEDS: PREGABALIN 75 MG CAPSULE PO (21:57)
[2025-01-08] MEDS: BACLOFEN 10 MG TABLET PO (21:57)
[2025-01-08] MEDS: LATANOPROST 0.005% 2.5 ML BOTTLE 1 DROP OP (21:57)
[2025-01-08] MEDS: NYSTATIN 500,000 UNIT/5 ML ORAL.SUSP 500000 UNIT PO (21:57)
[2025-01-08] MEDS: METHYLPREDNISOLONE SOD SUCC PF 125 MG/2 ML VIAL IVP (21:57)
[2025-01-08] MEDS: IMIPENEM/CILASTATIN SODIUM 500 MG in 0.9 % SODIUM CHLORIDE 100 ML 200 MG IV (21:57)
[2025-01-08] MEDS: OMEPRAZOLE 20 MG CAPSULE.DR PO (21:57)
[2025-01-08] MEDS: CETIRIZINE HCL 10 MG TABLET 20 MG PO (23:33)
[2025-01-08] MEDS: SODIUM CHLORIDE 3% INHALATION 15 ML NEB 3 ML IH (23:35)
[2025-01-08] MEDS: BUDESONIDE 0.5 MG/2 ML AMPULE NEB IH (23:35)
[2025-01-09] VITALS (24 sets, daily range): BP systolic 125–142; BP diastolic 66–80; PULSE 57–87; TEMP 36.4–36.8; O2SAT 90–98
[2025-01-09] MEDS: SODIUM CHLORIDE 3% INHALATION 15 ML NEB 3 ML IH ×4 (04:04→22:33)
[2025-01-09] MEDS: IPRATROPIUM/ALBUTEROL SULFATE 3 ML AMPUL.NEB IH ×4 (04:04→22:32)
[2025-01-09] MEDS: BACLOFEN 10 MG TABLET PO ×3 (05:21→21:07)
[2025-01-09] MEDS: NYSTATIN 500,000 UNIT/5 ML ORAL.SUSP 500000 UNIT PO ×4 (05:21→21:41)
[2025-01-09 06:03] LABS: Hematocrit 40.3 % (36.0-48.0); Hemoglobin 13.2 g/dL (12.0-16.0); Mean Corpuscular HGB Conc 32.8 g/dL (29.9-35.2); Mean Corpuscular Hemoglobin 30.7 pg (26.7-34.0); Mean Corpuscular Volume 93.7 fL (81.0-99.0); Mean Platelet Volume 8.8 fL (9.5-13.5); Platelet Count 350 10^3/uL (150-450); Red Cell Distribution Width 14.3 % (11.0-15.0); White Blood Count 12.9 10^3/uL (4.0-11.0)
[2025-01-09 06:18] LABS: Band Neutrophils Absolute 0.1 10^3/uL (0.0-0.3); Lymphocytes Absolute Manual 1.16 10^3/uL (1.20-3.80); Metamyelocytes Absolute Manual 0.12; Monocytes Absolute Manual 0.12 10^3/uL (0.30-0.80); Segmented Neut Absolute Manual 11.35 10^3/uL (1.4-6.5)
[2025-01-09 06:23] LABS: Anion Gap 8.9; Carbon Dioxide 33.1 mmol/L (21.0-32.0); Chloride 101 mmol/L (98-107); Estimated GFR (African America 48 (>=60 mL/min/1.73m^2); Glucose 223 mg/dL (74-106); Sodium 138 mmol/L (136-145)
[2025-01-09 06:24] LABS: BUN Creatinine Ratio 26.5; Estimated GFR (Non-African Ame 40 (>=60 mL/min/1.73m^2)
--- NOTE | 2025-01-09 07:11 | PM.PLPN ---
Progress Note: A&P Assessment and Plan (1) HCAP (healthcare-associated pneumonia): Assessment and Plan: 1. Acute viral pneumonia secondary to COVID-19. Still unable to R/O HCAP bacterial component. She was started on remdesivir. When she had COVID-19 summer, she was on Paxlovid which did not help - I discussed this with her along with all the drug interactions. She declined to start it. Continue Steroids, supportive care. I would still continue vancomycin + Primaxin as I cannot R/O bacterial pneumonia. Awaiting cultures. 2. AECOPD. Continue DuoNeb + Pulmicort & Solu-Medrol. Restart Trelegy @ discharge. 3. Acute on chronic hypoxic respiratory failure. Remains on Vapotherm @ FiO2 80%. 4. 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 Pulmonary toilet: NIV, Vest, IPV, PEP, sodium chloride 3% nebs. Discussed with RT. 5. Acquired tracheobronchomalacia. Associated with #4. Continue NIV. 6. Oral candidiasis. Continue nystatin swish & swallow. Plan Guarded condition. COVID-19 almost killed her in 2022, and its sequelae have continued to cause significant issues for the patient (critical illness myopathy, tracheobronchomalacia). Hopefully she recovers quickly this time without further long-term issues. Subjective Subjective Interval history: Patient was found to be COVID-19 positive - she was negative the prior admission - contracted it while in the hospital?!? Remain on Vapotherm with FiO2 80%. She states she feels okay at this time, not any worse, but not significantly improved. Exam Constitutional Vital Signs, click to edit/add: Last Vital Signs Temp 97.6 F 01/09/25 05:50 Pulse 69 01/09/25 06:00 Resp 19 01/09/25 05:50 BP 138/75 01/09/25 05:50 Pulse Ox 96 01/09/25 05:50 O2 Del Method Vapotherm 01/09/25 05:50 O2 Flow Rate 40 01/09/25 05:50 FiO2 80 01/09/25 05:50 Documenting provider has reviewed patient's vital signs: yes General appearance: ill appearing chronically HENMT Other: Wearing Vapotherm. Oral candidiasis Chest Other: Palpable rhonchi upper lung [place] Respiratory Other: Not as tachypneic today. Diminished breath sounds. No wheezes. Rhonchi. Cardio Other: RRR GI Inspection: central obesity Neuro Motor exam: no tremor noted and no fasciculations Psych Attitude: calm and engaged Activity/motor behavior: appropriate eye contact Speech: normal speech
--- NOTE | 2025-01-09 07:24 | P.PN_ITS ---
Progress Note: Subjective Subjective Interval history: Maybe feels a little better with her breathing Exam Constitutional Vital Signs, click to edit/add: Last Vital Signs Temp 97.6 F 01/09/25 05:50 Pulse 69 01/09/25 06:00 Resp 19 01/09/25 05:50 BP 138/75 01/09/25 05:50 Pulse Ox 96 01/09/25 05:50 O2 Del Method Vapotherm 01/09/25 05:50 O2 Flow Rate 40 01/09/25 05:50 FiO2 80 01/09/25 05:50 Documenting provider has reviewed patient's vital signs: yes Common normals: apparent distress (Mild respiratory distress) Chest Common normals: inspection of chest normal Respiratory Common normals: abnormal respiratory effort (Mild respiratory distress) Auscultation: rhonchi (better air exchange) and wheezes Cardio Common normals: regular rate and regular rhythm Extremity Common normals: abnormal to inspection (Maybe trace edema) Progress Note: Objective Labs Labs: Short CBC 01/08/25 01/09/25 Range/Units 13:55 05:46 WBC 21.8 H 12.9 H (4.0-11.0) 10^3/uL Hgb 14.1 13.2 (12.0-16.0) g/dL Hct 43.2 40.3 (36.0-48.0) % Plt Count 462 H 350 (150-450) 10^3/uL BMP 01/08/25 01/09/25 13:55 05:46 Sodium 136 138 Potassium 4.6 5.0 Chloride 97 L 101 Carbon Dioxide 30.6 33.1 H BUN 41.0 H 35.0 H Creatinine 1.96 H 1.32 H Glucose 231 H 223 H Calcium 8.4 L 8.0 L Liver Function 01/08/25 Range/Units 13:55 Total Bilirubin 0.4 (0.2-1.0) mg/dL AST 16 (15-37) U/L ALT 19 (14-59) U/L Alkaline Phosphatase 92 (46-116) U/L Albumin 3.0 L (3.4-5.0) g/dL Progress Note: A&P Assessment and Plan (1) HCAP (healthcare-associated pneumonia): Plan Admission findings: Sinus tachycardia, respiratory distress, severe hypoxia with O2 sat of 86% on 4 L, requiring Vapotherm with O2 supplemented at 80% due to acute covid 19 and HCAP Acute hypoxia with healthcare acquired pneumonia with concomitant COVID 19- continue with antibiotics prescribed by pulmonology,added remdesivir last night, wbc improved Acute exacerbation of chronic hypoxic respiratory failure secondary to the healthcare acquired pneumonia as outlined above-continue plan per pulmonology Hypomagnesemia: Monitor Thrombocytopenia = monitor daily Osteoarthritis of right hip: Continue with home medications Depression: Continue with home medications Chronic heart failure with preserved ejection fraction (HFpEF): Currently no signs of fluid overload, BNP is much improved from previous Moderate protein calorie malnutrition-monitor with diet Hypertension-continue with medications Admission status: Patient with recent discharge for community-acquired pneumonia now presenting with healthcare acquired pneumonia with significant hypoxia and significant leukocytosis with left shift consistent with bacterial process, medically necessary treatment will span 2 midnights. Inpatient status ?
[2025-01-09] MEDS: REMDESIVIR 200 MG in 0.9 % SODIUM CHLORIDE 250 ML 250 MG IV (08:15)
[2025-01-09] MEDS: OMEPRAZOLE 20 MG CAPSULE.DR PO ×2 (08:20→16:37)
[2025-01-09] MEDS: FAMOTIDINE 20 MG TABLET 40 MG PO ×2 (08:21→20:25)
[2025-01-09] MEDS: FUROSEMIDE 20 MG/2 ML VIAL IVP (08:21)
[2025-01-09] MEDS: MAGNESIUM OXIDE 400 MG TABLET PO (08:21)
[2025-01-09] MEDS: CETIRIZINE HCL 10 MG TABLET 20 MG PO (08:21)
[2025-01-09] MEDS: PAROXETINE HCL 20 MG TABLET 30 MG PO (08:22)
[2025-01-09] MEDS: MONTELUKAST SODIUM 10 MG TABLET PO (08:22)
[2025-01-09] MEDS: SOLIFENACIN SUCCINATE 10 MG TABLET PO (08:23)
[2025-01-09] MEDS: PREGABALIN 75 MG CAPSULE PO ×2 (08:23→20:24)
[2025-01-09] MEDS: IMIPENEM/CILASTATIN SODIUM 500 MG in 0.9 % SODIUM CHLORIDE 100 ML 200 MG IV ×2 (09:41→20:24)
--- NOTE | 2025-01-09 09:50 | CM.NOTE ---
Rounds made with Dr. Zepeda, pt remains on vapotherm this AM. RN will attempt to wean oxygen as tolerated. Dr. Zepeda will start pt on Remdesivir for Covid. Discussed with pt diagnosis, AM labs and plan of care.
[2025-01-09] MEDS: METHYLPREDNISOLONE SOD SUCC PF 125 MG/2 ML VIAL IVP ×2 (11:27→20:24)
--- NOTE | 2025-01-09 11:50 | CM.NOTE ---
Important Message From Medicare discussed with pt, pt verbalizes understanding and signs paper. Original given to pt and copy placed on pt's chart.
[2025-01-09] MEDS: BUDESONIDE 0.5 MG/2 ML AMPULE NEB IH ×2 (11:56→22:33)
--- NOTE | 2025-01-09 12:09 | SWNOTE1 ---
Pt agreeable to go to rehab after speaking with case management. Pt initially wanted [facility] or [facility], but [facility] does not do skilled anymore and [facility] does not take her insurance. Will go back and speak with pt.
--- NOTE | 2025-01-09 14:05 | SWNOTE1 ---
JAZMIN went back in and spoke to pt about rehab. JAZMIN explained to pt that she is on high flow oxygen now and we are hoping to wean down to nasal canula, but it may be beneficial to go to SNF that does have respiratory around the clock. She is in agreement. JAZMIN let her know that there is [facility], [facility], and [facility]. JAZMIN advised that [facility] does not have any beds. Pt stated she prefers the one in [place], but if they do not have openings or don't take insurance she is open to wherever. SW to call [facility]. JAZMIN emailed Rosaline and Ariella at [facility]. Rosaline emailed back and they do take pt's insurance and respiratory unit. Rosaline is checking on liter flow and how high they go. JAZMIN waiting to hear back.
--- NOTE | 2025-01-09 14:15 | SWNOTE1 ---
Mill[facility] voiced they can do vapotherm and have been up to 60-80 liters. Referral sent to [facility]. Referral included face sheet, ED note, H&P, provider notes, case management referral report, nursing notes, diagnostic imaging, med list, and PT/OT notes.
--- NOTE | 2025-01-09 14:48 | SWNOTE1 ---
SW let pt know that [facility] is reviewing her referral and that Rosaline in admissions may stop over today to see her. Pt in agreement.
[2025-01-09] MEDS: VANCOMYCIN HCL 1,500 MG in 0.9 % SODIUM CHLORIDE 500 ML 250 MG IV (15:01)
--- NOTE | 2025-01-09 15:38 | SWNOTE1 ---
Rosaline at [facility] reached out and stated pt has [employer] Medicare, but they are still in network. JAZMIN spoke to Lorena in billing and she was able to pull pt up and she does have [employer] Medicare as of 01/04/25. Lorena will correct. JAZMIN asked pt and she did voiced she does have [employer] Medicare.
[2025-01-09] MEDS: ACETAMINOPHEN 500 MG TABLET 1000 MG PO (16:36)
[2025-01-09] MEDS: TRAZODONE HCL 50 MG TABLET 100 MG PO (21:07)
[2025-01-09] MEDS: LATANOPROST 0.005% 2.5 ML BOTTLE 1 DROP OP (21:07)
[2025-01-10] VITALS (27 sets, daily range): BP systolic 119–158; BP diastolic 70–80; PULSE 58–96; TEMP 36.5–36.9; O2SAT 83–100; BMI 39.4
[2025-01-10] MEDS: IPRATROPIUM/ALBUTEROL SULFATE 3 ML AMPUL.NEB IH ×5 (04:05→22:40)
[2025-01-10] MEDS: METHYLPREDNISOLONE SOD SUCC PF 125 MG/2 ML VIAL IVP ×4 (04:10→21:41)
[2025-01-10] MEDS: NYSTATIN 500,000 UNIT/5 ML ORAL.SUSP 500000 UNIT PO ×4 (05:25→21:41)
[2025-01-10] MEDS: BACLOFEN 10 MG TABLET PO ×3 (05:25→21:42)
[2025-01-10 06:00] LABS: Hematocrit 43.2 % (36.0-48.0); Hemoglobin 13.8 g/dL (12.0-16.0); Mean Corpuscular HGB Conc 31.9 g/dL (29.9-35.2); Mean Corpuscular Hemoglobin 30.1 pg (26.7-34.0); Mean Corpuscular Volume 94.3 fL (81.0-99.0); Mean Platelet Volume 9.2 fL (9.5-13.5); Platelet Count 409 10^3/uL (150-450); Red Blood Count 4.58 10^6/uL (4.20-5.40); Red Cell Distribution Width 13.9 % (11.0-15.0); White Blood Count 16.1 10^3/uL (4.0-11.0)
[2025-01-10 06:24] LABS: Anion Gap 14.3; BUN Creatinine Ratio 25.4; Calcium 8.6 mg/dL (8.5-10.1); Carbon Dioxide 28.1 mmol/L (21.0-32.0); Chloride 99 mmol/L (98-107); Estimated GFR (African America 48 (>=60 mL/min/1.73m^2); Estimated GFR (Non-African Ame 39 (>=60 mL/min/1.73m^2); Glucose 262 mg/dL (74-106); Potassium 4.4 mmol/L (3.5-5.1); Sodium 137 mmol/L (136-145)
[2025-01-10 06:42] LABS: Band Neutrophils Absolute 0.2 10^3/uL (0.0-0.3); Lymphocytes Absolute Manual 0.64 10^3/uL (1.20-3.80); Monocytes Absolute Manual 0.64 10^3/uL (0.30-0.80); Segmented Neut Absolute Manual 14.65 10^3/uL (1.4-6.5)
--- NOTE | 2025-01-10 07:03 | P.PN_ITS ---
Progress Note: Subjective Subjective Interval history: Not improved with her breathing this morning. Exam Constitutional Vital Signs, click to edit/add: Last Vital Signs Temp 98.4 F 01/10/25 03:00 Pulse 83 01/10/25 06:00 Resp 18 01/10/25 04:05 BP 119/70 01/10/25 03:00 Pulse Ox 93 L 01/10/25 06:57 O2 Del Method Vapotherm 01/10/25 06:57 O2 Flow Rate 40 01/10/25 06:57 FiO2 100 01/10/25 06:57 Common normals: apparent distress (Moderate respiratory distress) Respiratory Common normals: abnormal respiratory effort (Moderate respiratory distress) Auscultation: rhonchi and wheezes Cardio Common normals: regular rate and regular rhythm Progress Note: Objective Labs Labs: Short CBC 01/10/25 Range/Units 05:43 WBC 16.1 H (4.0-11.0) 10^3/uL Hgb 13.8 (12.0-16.0) g/dL Hct 43.2 (36.0-48.0) % Plt Count 409 (150-450) 10^3/uL BMP 01/10/25 05:43 Sodium 137 Potassium 4.4 Chloride 99 Carbon Dioxide 28.1 BUN 34.0 H Creatinine 1.34 H Glucose 262 H Calcium 8.6 Progress Note: A&P Assessment and Plan (1) HCAP (healthcare-associated pneumonia): Plan Admission findings: Sinus tachycardia, respiratory distress, severe hypoxia with O2 sat of 86% on 4 L, requiring Vapotherm with O2 supplemented at 80% due to acute covid 19 and HCAP Acute hypoxia with healthcare acquired pneumonia with concomitant COVID 19-this morning, obtained a CTA which showed no blood clots, likely progression of the COVID-19, maintain remdesivir, increase steroids and frequency of aerosols and diuresis Acute exacerbation of chronic hypoxic respiratory failure secondary to the healthcare acquired pneumonia as outlined above-continue plan per pulmonology Hypomagnesemia: Monitor Thrombocythemia-monitor daily Osteoarthritis of right hip: Continue with home medications Depression: Continue with home medications Chronic heart failure with preserved ejection fraction (HFpEF): Currently no signs of fluid overload, BNP is much improved from previous Moderate protein calorie malnutrition-monitor with diet Diabetes mellitus-insulin sliding scale Hypertension-continue with medications Admission status: Patient with recent discharge for community-acquired pneumonia now presenting with healthcare acquired pneumonia with significant hypoxia and significant leukocytosis with left shift consistent with bacterial process, medically necessary treatment will span 2 midnights. Inpatient status ?
[2025-01-10 07:43] LABS: Glucometer 249 mg/dL (74-106)
--- NOTE | 2025-01-10 08:45 | CM.NOTE ---
Rounds made with Dr. Zepeda. Dr. Zepeda reviews plan of care with Diana-CTA ordered, ABGs ordered. Diana verbalizes understanding.
[2025-01-10 08:54] LABS: pH ABG 7.391 (7.350-7.450)
[2025-01-10 08:57] LABS: Allen Test POSITIVE (POSITIVE); HCO3 ABG 30.9 mmol/L (22.0-26.0); Oxygen Saturation ABG 99.3 %
[2025-01-10 08:58] LABS: Fractionated Inspired Oxygen 100 %; Liters per Minute 40; O2 Mode VAPOTHERM; Puncture Site L RAD
--- NOTE | 2025-01-10 09:18 | SWNOTE1 ---
Ariella at [facility] started [facility] today. They would also like pt to bring her NIV vest to [facility] and they are requesting her HCPOA paperwork. SW faxed over POA paperwork.
[2025-01-10] MEDS: INSULIN ASPART 300 UNIT/3 ML PEN SUBQ ×4 (10:15→22:53)
[2025-01-10] MEDS: FUROSEMIDE 20 MG/2 ML VIAL 40 MG IVP (10:15)
[2025-01-10] MEDS: OMEPRAZOLE 20 MG CAPSULE.DR PO ×2 (10:16→15:55)
[2025-01-10] MEDS: CETIRIZINE HCL 10 MG TABLET 20 MG PO (10:16)
[2025-01-10] MEDS: ENOXAPARIN SODIUM 40 MG/0.4 ML SYRINGE SUBQ (10:16)
[2025-01-10] MEDS: FAMOTIDINE 20 MG TABLET 40 MG PO ×2 (10:16→21:41)
[2025-01-10] MEDS: PAROXETINE HCL 20 MG TABLET 30 MG PO (10:17)
[2025-01-10] MEDS: MONTELUKAST SODIUM 10 MG TABLET PO (10:17)
[2025-01-10] MEDS: PREGABALIN 75 MG CAPSULE PO ×2 (10:17→21:41)
[2025-01-10] MEDS: MAGNESIUM OXIDE 400 MG TABLET PO (10:17)
[2025-01-10] MEDS: SOLIFENACIN SUCCINATE 10 MG TABLET PO (10:17)
[2025-01-10] MEDS: IMIPENEM/CILASTATIN SODIUM 500 MG in 0.9 % SODIUM CHLORIDE 100 ML 200 MG IV ×2 (10:18→18:10)
[2025-01-10] MEDS: BENZONATATE 100 MG CAPSULE 200 MG PO (10:18)
[2025-01-10] MEDS: NYSTATIN 15 GM POWDER 1 APPLIC TOPICAL ×2 (10:35→21:40)
[2025-01-10] MEDS: REMDESIVIR 100 MG in 0.9 % SODIUM CHLORIDE 100 ML 200 MG IV (11:11)
[2025-01-10] MEDS: SODIUM CHLORIDE 3% INHALATION 15 ML NEB 3 ML IH ×3 (11:18→19:51)
[2025-01-10] MEDS: BUDESONIDE 0.5 MG/2 ML AMPULE NEB IH ×2 (11:18→22:40)
[2025-01-10 11:29] LABS: Glucometer 350 mg/dL (74-106)
--- NOTE | 2025-01-10 11:42 | RESP.RT ---
FiO2 decreased to 80%
--- NOTE | 2025-01-10 13:41 | PT.DAILY ---
Physical Therapy Daily Note PT Daily Note/Assess Start: 01/09/25 13:44 Freq: Status: Active Protocol: Document 01/10/25 13:39 LORENE (Rec: 01/10/25 13:40 LORENE [id number]) Visit Not Completed Visit Not Completed Visit Not Completed Other Due to: Other Reason Visit 1st attempt pt getting breathing treatment Not Completed 2nd attempt pt eating lunch 3rd attempt pt soiled bed and nursing was coming to clean her up follow up tomorrow Physical Therapy Daily Note/Assessment Time In/Time Out Time In 13:35 Time Out 13:35 Pain In Pain N/A Pain Out Pain N/A GG. Functional Abilities and Goals-Complete for Swing Bed Patients Only [id number]. Self-Care [id number]. Mobility
--- NOTE | 2025-01-10 14:20 | SWNOTE1 ---
SW copied insurance cards, copy given to marketing secretary for the charts. SW put other copy in packet for fdc.
--- NOTE | 2025-01-10 14:26 | SWNOTE1 ---
JAZMIN spoke to pt and let her know that [facility] would like her to bring her NIV and vest that Dr. Lopes's office was able to get for her once she gets over to [facility]. Pt in agreement. At this point JAZMIN is going to see how pt is doing over the weekend and will touch base with nursing and also with Ariella at [facility] in case pt becomes medically stable over the weekend. JAZMIN did complete HENS online.
[2025-01-10] MEDS: VANCOMYCIN HCL 1,500 MG in 0.9 % SODIUM CHLORIDE 500 ML 250 MG IV (15:55)
[2025-01-10 16:29] LABS: Glucometer 253 mg/dL (74-106)
[2025-01-10] MEDS: LATANOPROST 0.005% 2.5 ML BOTTLE 1 DROP OP (21:40)
[2025-01-10] MEDS: TRAZODONE HCL 50 MG TABLET 100 MG PO (21:41)
[2025-01-11] VITALS (22 sets, daily range): BP systolic 120–152; BP diastolic 73–90; PULSE 60–92; TEMP 36.6–36.7; O2SAT 88–98
[2025-01-11] MEDS: IMIPENEM/CILASTATIN SODIUM 500 MG in 0.9 % SODIUM CHLORIDE 100 ML 200 MG IV ×3 (01:08→21:26)
[2025-01-11] MEDS: METHYLPREDNISOLONE SOD SUCC PF 125 MG/2 ML VIAL IVP ×2 (03:12→09:12)
[2025-01-11] MEDS: IPRATROPIUM/ALBUTEROL SULFATE 3 ML AMPUL.NEB IH ×6 (03:55→22:59)
[2025-01-11] MEDS: NYSTATIN 500,000 UNIT/5 ML ORAL.SUSP 500000 UNIT PO ×3 (06:13→21:26)
[2025-01-11] MEDS: BACLOFEN 10 MG TABLET PO ×3 (06:13→21:29)
[2025-01-11 06:56] LABS: Hematocrit 37.9 % (36.0-48.0); Hemoglobin 12.2 g/dL (12.0-16.0); Mean Corpuscular HGB Conc 32.2 g/dL (29.9-35.2); Mean Corpuscular Volume 93.3 fL (81.0-99.0); Mean Platelet Volume 9.4 fL (9.5-13.5); Platelet Count 283 10^3/uL (150-450); Red Blood Count 4.06 10^6/uL (4.20-5.40); White Blood Count 10.7 10^3/uL (4.0-11.0)
[2025-01-11 07:25] LABS: Anion Gap 10.5; BUN Creatinine Ratio 30.7; Calcium 8.3 mg/dL (8.5-10.1); Carbon Dioxide 31.1 mmol/L (21.0-32.0); Chloride 99 mmol/L (98-107); Estimated GFR (African America 57 (>=60 mL/min/1.73m^2); Estimated GFR (Non-African Ame 47 (>=60 mL/min/1.73m^2); Glucose 310 mg/dL (74-106); Potassium 4.6 mmol/L (3.5-5.1); Sodium 136 mmol/L (136-145)
[2025-01-11] MEDS: SODIUM CHLORIDE 3% INHALATION 15 ML NEB 3 ML IH ×4 (07:42→19:59)
[2025-01-11 07:44] LABS: Lymphocytes Absolute Manual 0.32 10^3/uL (1.20-3.80); Monocytes Absolute Manual 0.74 10^3/uL (0.30-0.80); Segmented Neut Absolute Manual 9.63 10^3/uL (1.4-6.5)
[2025-01-11] MEDS: REMDESIVIR 100 MG in 0.9 % SODIUM CHLORIDE 100 ML 200 MG IV (09:09)
[2025-01-11] MEDS: INSULIN ASPART 300 UNIT/3 ML PEN SUBQ ×4 (09:10→21:27)
[2025-01-11] MEDS: ENOXAPARIN SODIUM 40 MG/0.4 ML SYRINGE SUBQ (09:11)
[2025-01-11] MEDS: CETIRIZINE HCL 10 MG TABLET 20 MG PO (09:11)
[2025-01-11] MEDS: MAGNESIUM OXIDE 400 MG TABLET PO (09:12)
[2025-01-11] MEDS: SOLIFENACIN SUCCINATE 10 MG TABLET PO (09:12)
[2025-01-11] MEDS: MONTELUKAST SODIUM 10 MG TABLET PO (09:12)
[2025-01-11] MEDS: PAROXETINE HCL 20 MG TABLET 30 MG PO (09:12)
[2025-01-11] MEDS: PREGABALIN 75 MG CAPSULE PO ×2 (09:12→21:25)
[2025-01-11] MEDS: FAMOTIDINE 20 MG TABLET 40 MG PO ×2 (09:12→21:25)
[2025-01-11] MEDS: OMEPRAZOLE 20 MG CAPSULE.DR PO ×2 (09:12→16:32)
[2025-01-11] MEDS: FUROSEMIDE 20 MG/2 ML VIAL 40 MG IVP (09:13)
--- NOTE | 2025-01-11 10:20 | PT.DAILY ---
Physical Therapy Daily Note PT Daily Note/Assess Start: 01/09/25 13:44 Freq: Status: Active Protocol: Document 01/11/25 10:07 [id number] (Rec: 01/11/25 10:20 [id number]) Physical Therapy Daily Note/Assessment Time In/Time Out Time In 08:51 Time Out 09:20 Pain In Pain Level 0 Pain Out Pain Level 0 Subjective Subjective Patient received in bed with Vapotherm. States she would like to use the bedside commode and then sit in the chair. Therapeutic Exercise Time Therapeutic Exercise 8 Minutes (minutes) Therapeutic Exercise 1 Units Therapeutic Exercise Treatment Therapeutic Exercise Prior to ther ex patient spo2 level @ 88%. Patient Treatment performed supine ther ex to PRATEEK LE for 10 reps: ankle pumps, quad/glut sets, SLR. Seated ther ex to PRATEEK LE for ankle pump/heel raises, LAQ's, marching and hip ABD . All ther ex to increase PRATEEK LE for improved functional mobility with ADL's. Therapeutic Activity Time Therapeutic Activity 21 Minutes (minutes) Therapeutic Activity 1 Units Therapeutic Activity Treatment Bed Mobility Ability Standby Assistance Chair Transfer Standby Assistance Ability Therapeutic Activity Bed mobility: supine to R semi-side lying and into Comments sitting with use of R bed rail is SBA +1. Transfer: stand to L pivot to BSC with CGA +1. Patient performed sit to stand while holding onto EOB while rodríguez care was performed. Rodríguez care is MAX A +1. Patient is MOD A +1 for doff/marita gown secondary to being soiled. Patient sat on BSC while performing seated ther ex. Transfer: BSC to 4WW SBA +1, verbal cues to ensure 4WW is locked prior to transfer. Patient ambulated ~4 feet to chair at bedside, PRATEEK LE elevated, CBWR and tray placed in front of patient per their request. Spo2 level after treatment @ 95%. Patient left in care of nursing. Total Physical Therapy Time Total Therapy 29 Minutes Total Physical 2 Therapy Units Summary Daily Note Summary Patient demonstrates improve O2 level after functional movement for toileting and ther ex. Patient would benefit from SNF to address functional deficit and return to PLOF.
[2025-01-11] MEDS: BUDESONIDE 0.5 MG/2 ML AMPULE NEB IH ×2 (11:07→22:59)
[2025-01-11] MEDS: NYSTATIN 15 GM POWDER 1 APPLIC TOPICAL ×2 (11:51→21:25)
--- NOTE | 2025-01-11 12:49 | P.IMPN_ITS ---
Progress Note: A&P Assessment and Plan (1) HCAP (healthcare-associated pneumonia): Assessment and Plan: Likely superimposed bacterial pneumonia involving right lower lobe. On imipenem along with vancomycin because of chronic lung disease, recent antibiotic use and hospital admission, recent broad-spectrum antibiotic use. At high risk of resistant organisms like Pseudomonas and MRSA. (2) RLL pneumonia: Assessment and Plan: Likely superimposed bacterial pneumonia on COVID-19 infection. On broad- spectrum antibiotics. Also on remdesivir. Qualifiers: Pneumonia type: due to unspecified organism Qualified Code(s): J18.9 - Pneumonia, unspecified organism (3) Acute on chronic diastolic (congestive) heart failure: Assessment and Plan: Volume overload on exam. Continue with IV Lasix. Monitor volume status closely. (4) Acute exacerbation of chronic obstructive pulmonary disease (COPD): Assessment and Plan: On IV Solu-Medrol, DuoNebs. Continue with same. (5) Severe persistent asthma with exacerbation: Assessment and Plan: On IV Solu-Medrol, DuoNebs. Continue with same. (6) Acute and chronic respiratory failure with hypoxia: Assessment and Plan: Improving. Wean off oxygen as tolerated. Continue on high flow oxygen. (7) COVID-19: Assessment and Plan: On IV remdesivir. On IV steroids. Monitor closely.. (8) Chronic respiratory failure with hypoxia: Assessment and Plan: Uses 2 to 3 L of oxygen at bed. (9) Tracheobronchomalacia: Assessment and Plan: Patient was previously referred to interventional pulmonology but has refused to undergo any invasive procedures. Will benefit from weight loss. Treat underlying sleep apnea. (10) Hypertension: Assessment and Plan: Blood pressure is stable continue with home medications. Qualifiers: Hypertension type: primary hypertension Qualified Code(s): I10 - Essential (primary) hypertension (11) Morbid obesity: Assessment and Plan: Patient will benefit from weight loss. (12) Diet-controlled diabetes mellitus: Assessment and Plan: Typically well-controlled without any medications. However when she is receiving steroids, her blood glucose tends to get very high. On sliding scale insulin. Added Levemir. Monitor blood glucose closely. Check A1c. Internal Medicine - PN: Subj Subjective Interval history: Seen and examined. Patient feels better. She is still on high flow oxygen and requiring 45% FiO2. No overnight events. Exam Constitutional Vital Signs, click to edit/add: Last Vital Signs Temp 98.0 F 01/11/25 08:22 Pulse 83 01/11/25 11:49 Resp 20 01/11/25 08:22 BP 120/73 01/11/25 08:22 Pulse Ox 91 L 01/11/25 11:49 O2 Del Method Vapotherm 01/11/25 11:09 O2 Flow Rate 40 01/11/25 11:09 FiO2 45 01/11/25 11:09 Documenting provider has reviewed patient's vital signs: yes Common normals: oriented x3 General appearance: cooperative, ill appearing and frail appearing Respiratory Common normals: normal respiratory effort Other: Coarse/harsh breath sounds. Wheezing on exam. Cardio Common normals: regular rate, S1 normal heart sound and S2 normal heart sound Rate: regular rate Heart sounds: S1 normal and S2 normal Extremity Common normals: no clubbing, cyanosis or edema Neuro Common normals: oriented x3, moves all extremities and no focal motor deficits Psych Common normals: mental status grossly normal, denies hallucinations, denies homicidal ideation and denies suicidal ideation Internal Medicine - PN: Obj Da Labs Labs: Laboratory Results - last 24 hr 01/10/25 01/11/25 16:18 06:30 WBC 10.7 RBC 4.06 L Hgb 12.2 Hct 37.9 MCV 93.3 MCH 30.0 MCHC 32.2 RDW 14.0 Plt Count 283 MPV 9.4 L Seg Neuts % (Manual) 90.0 H Lymphocytes % (Manual) 3.0 L Monocytes % (Manual) 7.0 Eosinophils % (Manual) 0.0 L Basophils % (Manual) 0.0 L Neutrophils # (Manual) 9.63 H Lymphocytes # (Manual) 0.32 L Monocytes # (Manual) 0.74 Eosinophils # (Manual) 0.00 Basophils # (Manual) 0.00 Sodium 136 Potassium 4.6 Chloride 99 Carbon Dioxide 31.1 Anion Gap 10.5 BUN 35.0 H Creatinine 1.14 H Est GFR ( Amer) 57 L Est GFR (Non-Af Amer) 47 L BUN/Creatinine Ratio 30.7 Glucose 310 H Calcium 8.3 L NT-Pro-B Natriuret Pep 242.0 POC Glucose 253 H
[2025-01-11] MEDS: INSULIN GLARGINE 300 UNIT/3 ML INSULN.PEN 20 UNIT SQ (13:04)
[2025-01-11] MEDS: ACETAMINOPHEN 500 MG TABLET 1000 MG PO (13:05)
[2025-01-11] MEDS: BENZONATATE 100 MG CAPSULE 200 MG PO (13:05)
[2025-01-11] MEDS: METHYLPREDNISOLONE SOD SUCC PF 125 MG/2 ML VIAL 60 MG IVP ×2 (15:35→21:26)
[2025-01-11] MEDS: VANCOMYCIN HCL 1,500 MG in 0.9 % SODIUM CHLORIDE 500 ML 250 MG IV (16:32)
[2025-01-11] MEDS: TRAZODONE HCL 50 MG TABLET 100 MG PO (21:25)
[2025-01-11] MEDS: LATANOPROST 0.005% 2.5 ML BOTTLE 1 DROP OP (21:26)
[2025-01-12] VITALS (23 sets, daily range): BP systolic 120–128; BP diastolic 72–80; PULSE 65–92; TEMP 36.4–36.6; O2SAT 85–98
[2025-01-12] MEDS: METHYLPREDNISOLONE SOD SUCC PF 125 MG/2 ML VIAL 60 MG IVP ×4 (03:10→21:38)
[2025-01-12] MEDS: IPRATROPIUM/ALBUTEROL SULFATE 3 ML AMPUL.NEB IH ×6 (03:49→23:59)
[2025-01-12] MEDS: BACLOFEN 10 MG TABLET PO ×3 (05:40→21:41)
[2025-01-12] MEDS: NYSTATIN 500,000 UNIT/5 ML ORAL.SUSP 500000 UNIT PO ×4 (05:40→21:40)
[2025-01-12] MEDS: IMIPENEM/CILASTATIN SODIUM 500 MG in 0.9 % SODIUM CHLORIDE 100 ML 200 MG IV ×3 (05:40→21:39)
[2025-01-12 06:46] LABS: Hematocrit 39.1 % (36.0-48.0); Hemoglobin 12.7 g/dL (12.0-16.0); Mean Corpuscular HGB Conc 32.5 g/dL (29.9-35.2); Mean Corpuscular Volume 92.2 fL (81.0-99.0); Mean Platelet Volume 9.5 fL (9.5-13.5); Platelet Count 303 10^3/uL (150-450); Red Blood Count 4.24 10^6/uL (4.20-5.40); Red Cell Distribution Width 13.8 % (11.0-15.0); White Blood Count 11.1 10^3/uL (4.0-11.0)
[2025-01-12 07:12] LABS: Estimated Average Glucose 157 mg/dL; Glycohemoglobin A1C 7.1 % (4.5-6.2)
[2025-01-12 07:14] LABS: Anion Gap 11.7; BUN Creatinine Ratio 33.3; Calcium 8.5 mg/dL (8.5-10.1); Carbon Dioxide 28.9 mmol/L (21.0-32.0); Chloride 99 mmol/L (98-107); Estimated GFR (African America 59 (>=60 mL/min/1.73m^2); Estimated GFR (Non-African Ame 49 (>=60 mL/min/1.73m^2); Glucose 260 mg/dL (74-106); Potassium 4.6 mmol/L (3.5-5.1); Sodium 135 mmol/L (136-145)
[2025-01-12 07:32] LABS: Lymphocytes Absolute Manual 0.22 10^3/uL (1.20-3.80); Monocytes Absolute Manual 0.44 10^3/uL (0.30-0.80); Segmented Neut Absolute Manual 10.43 10^3/uL (1.4-6.5)
[2025-01-12 07:33] LABS: Anisocytosis 1+
[2025-01-12] MEDS: INSULIN ASPART 300 UNIT/3 ML PEN SUBQ ×4 (08:00→21:39)
[2025-01-12] MEDS: OMEPRAZOLE 20 MG CAPSULE.DR PO ×2 (08:03→17:01)
[2025-01-12] MEDS: FAMOTIDINE 20 MG TABLET 40 MG PO ×2 (08:03→21:39)
[2025-01-12] MEDS: PREGABALIN 75 MG CAPSULE PO ×2 (08:03→21:40)
[2025-01-12] MEDS: BENZONATATE 100 MG CAPSULE 200 MG PO (08:03)
[2025-01-12] MEDS: CETIRIZINE HCL 10 MG TABLET 20 MG PO (08:03)
[2025-01-12] MEDS: MAGNESIUM OXIDE 400 MG TABLET PO (08:03)
[2025-01-12] MEDS: SOLIFENACIN SUCCINATE 10 MG TABLET PO (08:04)
[2025-01-12] MEDS: FUROSEMIDE 20 MG/2 ML VIAL 40 MG IVP (08:04)
[2025-01-12] MEDS: PAROXETINE HCL 20 MG TABLET 30 MG PO (08:04)
[2025-01-12] MEDS: MONTELUKAST SODIUM 10 MG TABLET PO (08:04)
[2025-01-12] MEDS: ENOXAPARIN SODIUM 40 MG/0.4 ML SYRINGE SUBQ (08:05)
[2025-01-12] MEDS: INSULIN GLARGINE 300 UNIT/3 ML INSULN.PEN 20 UNIT SQ (08:06)
[2025-01-12] MEDS: REMDESIVIR 100 MG in 0.9 % SODIUM CHLORIDE 100 ML 200 MG IV (08:08)
[2025-01-12] MEDS: 0.9 % SODIUM CHLORIDE 250 ML 10 ML IV (08:11)
[2025-01-12] MEDS: NYSTATIN 15 GM POWDER 1 APPLIC TOPICAL ×2 (08:11→21:37)
[2025-01-12] MEDS: BUDESONIDE 0.5 MG/2 ML AMPULE NEB IH ×2 (11:26→23:59)
[2025-01-12] MEDS: ACETAMINOPHEN 500 MG TABLET 1000 MG PO (12:12)
--- NOTE | 2025-01-12 12:13 | P.IMPN_ITS ---
Progress Note: A&P Assessment and Plan (1) HCAP (healthcare-associated pneumonia): Assessment and Plan: Likely superimposed bacterial pneumonia involving right lower lobe. Continue with vancomycin and imipenem. Follow-up culture At high risk of resistant organisms like Pseudomonas and MRSA. (2) RLL pneumonia: Assessment and Plan: Likely superimposed bacterial pneumonia on COVID-19 infection. On broad- spectrum antibiotics suspected hospital-acquired pneumonia along with remdesivir for COVID. Qualifiers: Pneumonia type: due to unspecified organism Qualified Code(s): J18.9 - Pneumonia, unspecified organism (3) Acute on chronic diastolic (congestive) heart failure: Assessment and Plan: Volume overload on exam. Continue with IV Lasix. Monitor volume status closely. (4) Acute exacerbation of chronic obstructive pulmonary disease (COPD): Assessment and Plan: On IV Solu-Medrol, DuoNebs. Continue with same. (5) Severe persistent asthma with exacerbation: Assessment and Plan: On IV Solu-Medrol, DuoNebs. Continue with same. (6) Acute and chronic respiratory failure with hypoxia: Assessment and Plan: Improving. Wean off oxygen as tolerated. Continue on high flow oxygen. Repeat chest x-ray today (7) COVID-19: Assessment and Plan: On IV remdesivir. On IV steroids. Monitor closely.. (8) Chronic respiratory failure with hypoxia: Assessment and Plan: Uses 2 to 3 L of oxygen at baseline. (9) Tracheobronchomalacia: Assessment and Plan: Patient was previously referred to interventional pulmonology but refused to undergo any invasive procedures. Will benefit from weight loss. Treat underlying sleep apnea. (10) Hypertension: Assessment and Plan: Blood pressure is stable continue with home medications. Qualifiers: Hypertension type: primary hypertension Qualified Code(s): I10 - Essential (primary) hypertension (11) Morbid obesity: Assessment and Plan: Patient will benefit from weight loss. (12) Diet-controlled diabetes mellitus: Assessment and Plan: Typically well-controlled without any medications. However when she is receiving steroids, her blood glucose tends to get very high. On sliding scale insulin. Added Levemir. Monitor blood glucose closely. A1c 7.1 Internal Medicine - PN: Subj Subjective Interval history: Seen and examined. No overnight events but patient with progressively worsening hypoxia and her O2 requirement had increased up to 60%. Subjectively, she feels well and has not noticed any change in her respiratory status. Exam Constitutional Vital Signs, click to edit/add: Last Vital Signs Temp 97.8 F 01/12/25 06:00 Pulse 90 01/12/25 12:00 Resp 18 01/12/25 06:00 BP 128/72 01/12/25 08:04 Pulse Ox 92 L 01/12/25 12:00 O2 Del Method Vapotherm 01/12/25 08:17 O2 Flow Rate 40 01/12/25 08:17 FiO2 50 01/12/25 08:17 Documenting provider has reviewed patient's vital signs: yes Common normals: oriented x3 General appearance: cooperative, ill appearing and frail appearing Respiratory Common normals: normal respiratory effort Other: Coarse/harsh breath sounds. Wheezing on exam. Cardio Common normals: regular rate, S1 normal heart sound and S2 normal heart sound Rate: regular rate Heart sounds: S1 normal and S2 normal Extremity Common normals: no clubbing, cyanosis or edema Neuro Common normals: oriented x3, moves all extremities and no focal motor deficits Psych Common normals: mental status grossly normal, denies hallucinations, denies homicidal ideation and denies suicidal ideation Internal Medicine - PN: Obj Da Labs Labs: Laboratory Results - last 24 hr 01/12/25 06:34 WBC 11.1 H RBC 4.24 Hgb 12.7 Hct 39.1 MCV 92.2 MCH 30.0 MCHC 32.5 RDW 13.8 Plt Count 303 MPV 9.5 Seg Neuts % (Manual) 94.0 H Lymphocytes % (Manual) 2.0 L Monocytes % (Manual) 4.0 Eosinophils % (Manual) 0.0 L Basophils % (Manual) 0.0 L Neutrophils # (Manual) 10.43 H Lymphocytes # (Manual) 0.22 L Monocytes # (Manual) 0.44 Eosinophils # (Manual) 0.00 Basophils # (Manual) 0.00 Anisocytosis 1+ Sodium 135 L Potassium 4.6 Chloride 99 Carbon Dioxide 28.9 Anion Gap 11.7 BUN 37.0 H Creatinine 1.11 H Est GFR ( Amer) 59 L Est GFR (Non-Af Amer) 49 L BUN/Creatinine Ratio 33.3 Glucose 260 H Estimat Average Glucose 157 Hemoglobin A1c 7.1 H Calcium 8.5 NT-Pro-B Natriuret Pep 548.0
[2025-01-12] MEDS: VANCOMYCIN HCL 1,500 MG in 0.9 % SODIUM CHLORIDE 500 ML 250 MG IV (15:14)
[2025-01-12] MEDS: SODIUM CHLORIDE 3% INHALATION 15 ML NEB 3 ML IH ×3 (15:54→23:59)
[2025-01-12] MEDS: LATANOPROST 0.005% 2.5 ML BOTTLE 1 DROP OP (21:38)
[2025-01-12] MEDS: TRAZODONE HCL 50 MG TABLET 100 MG PO (21:40)
[2025-01-12 22:10] LABS: Bilirubin Urine NEGATIVE (NEGATIVE); Blood Urine NEGATIVE (NEGATIVE); Clarity Urine CLEAR (CLEAR); Color Urine LT. YELLOW (YELLOW); Glucose Urine UA 500 mg/dL (NEGATIVE); Ketones Urine NEGATIVE (NEGATIVE); Leukocyte Esterase Urine NEGATIVE (NEGATIVE); Nitrite Urine NEGATIVE (NEGATIVE); Protein Urine NEGATIVE (NEG/TRACE); Urobilinogen Urine 0.2 EU/dL (0.2-1.0)
[2025-01-12 22:20] LABS: Bacteria Urine NONE SEEN #/HPF (NONE SEEN); Cast Seen? NONE SEEN #/LPF (NONE SEEN); Crystals Seen? None Seen #/HPF (None Seen); Mucus Urine NONE SEEN (NONE SEEN); RBC Urine NONE SEEN #/HPF (0-2); Squamous Epithelial Cell Urine RARE #/LPF (NONE/RARE); Urine Culture Indicated NO; WBC Urine 0-2 #/HPF (NONE SEEN)
[2025-01-13] VITALS (20 sets, daily range): BP systolic 121–148; BP diastolic 61–80; PULSE 63–88; TEMP 36.3–36.7; O2SAT 91–99
[2025-01-13] MEDS: IMIPENEM/CILASTATIN SODIUM 500 MG in 0.9 % SODIUM CHLORIDE 100 ML 200 MG IV ×3 (03:49→21:14)
[2025-01-13] MEDS: NYSTATIN 500,000 UNIT/5 ML ORAL.SUSP 500000 UNIT PO ×4 (03:50→21:16)
[2025-01-13] MEDS: BACLOFEN 10 MG TABLET PO ×3 (03:50→21:14)
[2025-01-13] MEDS: METHYLPREDNISOLONE SOD SUCC PF 125 MG/2 ML VIAL 60 MG IVP ×2 (03:50→08:34)
[2025-01-13] MEDS: IPRATROPIUM/ALBUTEROL SULFATE 3 ML AMPUL.NEB IH ×6 (03:56→23:53)
[2025-01-13] MEDS: SODIUM CHLORIDE 3% INHALATION 15 ML NEB 3 ML IH ×5 (03:56→23:53)
[2025-01-13 06:02] LABS: Basophils Percent Auto 0.2 % (0.2-2.0); Eosinophils Percent Auto 0.1 % (0.9-7.0); Hematocrit 33.1 % (36.0-48.0); Hemoglobin 10.8 g/dL (12.0-16.0); Immature Granulocytes Abs Auto 0.39 10^3/uL (0.00-0.03); Immature Granulocytes Pct Auto 4.8 % (0.0-0.5); Lymphocytes Absolute Auto 0.3 10^3/uL (1.2-3.8); Lymphocytes Percent Auto 3.8 % (20.5-60.0); Mean Corpuscular HGB Conc 32.6 g/dL (29.9-35.2); Mean Corpuscular Hemoglobin 30.4 pg (26.7-34.0); Mean Corpuscular Volume 93.2 fL (81.0-99.0); Mean Platelet Volume 9.7 fL (9.5-13.5); Monocytes Absolute Auto 0.6 10^3/uL (0.3-0.8); Monocytes Percent Auto 7.8 % (1.7-12.0); Neutrophils Absolute Auto 6.7 10^3/uL (1.4-6.5); Neutrophils Percent Auto 83.3 % (43.0-75.0); Platelet Count 245 10^3/uL (150-450); Red Blood Count 3.55 10^6/uL (4.20-5.40); Red Cell Distribution Width 13.9 % (11.0-15.0); White Blood Count 8.1 10^3/uL (4.0-11.0)
[2025-01-13 06:23] LABS: Anion Gap 10.9; BUN Creatinine Ratio 29.8; Calcium 8.1 mg/dL (8.5-10.1); Carbon Dioxide 33.9 mmol/L (21.0-32.0); Chloride 99 mmol/L (98-107); Estimated GFR (African America 54 (>=60 mL/min/1.73m^2); Estimated GFR (Non-African Ame 44 (>=60 mL/min/1.73m^2); Glucose 258 mg/dL (74-106); Potassium 4.8 mmol/L (3.5-5.1); Sodium 139 mmol/L (136-145)
[2025-01-13] MEDS: BENZONATATE 100 MG CAPSULE 200 MG PO (08:32)
[2025-01-13] MEDS: CETIRIZINE HCL 10 MG TABLET 20 MG PO (08:32)
[2025-01-13] MEDS: MAGNESIUM OXIDE 400 MG TABLET PO (08:33)
[2025-01-13] MEDS: FAMOTIDINE 20 MG TABLET 40 MG PO ×2 (08:33→21:14)
[2025-01-13] MEDS: OMEPRAZOLE 20 MG CAPSULE.DR PO ×2 (08:33→15:37)
[2025-01-13] MEDS: SOLIFENACIN SUCCINATE 10 MG TABLET PO (08:33)
[2025-01-13] MEDS: MONTELUKAST SODIUM 10 MG TABLET PO (08:33)
[2025-01-13] MEDS: PAROXETINE HCL 20 MG TABLET 30 MG PO (08:33)
[2025-01-13] MEDS: PREGABALIN 75 MG CAPSULE PO ×2 (08:33→21:14)
[2025-01-13] MEDS: REMDESIVIR 100 MG in 0.9 % SODIUM CHLORIDE 100 ML 200 MG IV (08:35)
[2025-01-13] MEDS: FUROSEMIDE 20 MG/2 ML VIAL 40 MG IVP (08:36)
[2025-01-13] MEDS: INSULIN ASPART 300 UNIT/3 ML PEN SUBQ ×4 (08:36→21:13)
[2025-01-13] MEDS: ENOXAPARIN SODIUM 40 MG/0.4 ML SYRINGE SUBQ (08:37)
[2025-01-13] MEDS: NYSTATIN 15 GM POWDER 1 APPLIC TOPICAL ×2 (08:37→21:13)
[2025-01-13] MEDS: INSULIN GLARGINE 300 UNIT/3 ML INSULN.PEN 20 UNIT SQ (08:37)
--- NOTE | 2025-01-13 09:36 | SWNOTE1 ---
SW sent updated physician notes, PT from Monday, nursing notes, vitals, respiratory notes, and med list to [facility].
--- NOTE | 2025-01-13 09:47 | PT.DAILY ---
Physical Therapy Daily Note PT Daily Note/Assess Start: 01/09/25 13:44 Freq: Status: Active Protocol: Document 01/13/25 09:42 LORENE (Rec: 01/13/25 09:46 LORENE [id number]) Physical Therapy Daily Note/Assessment Time In/Time Out Time In 09:21 Time Out 09:36 Pain In Pain N/A Subjective Subjective Pt supine with HOB elevated upon arrival. Eating breakfast but agreed to get into chair to finish breakfast. Needs to use commode prior. Therapeutic Exercise Time Therapeutic Exercise 4 Minutes (minutes) Therapeutic Exercise 0 Units Therapeutic Exercise Treatment Therapeutic Exercise Pt instructed to complete bilat LE strengthening ex Treatment while sitting in BS chair 10x ea to improve strength and maintain mobility. Therapeutic Activity Time Therapeutic Activity 9 Minutes (minutes) Therapeutic Activity 1 Units Therapeutic Activity Treatment Bed Mobility Ability Standby Assistance Chair Transfer Contact Guard Assist Ability Therapeutic Activity Supine>sit SBA with increased time. Assist for IV lines Comments / O2 lines. Pt stand pivot to BS commode CGA for safety . Pt needs assistance doffing brief and donning a new one. Pt is washed up at this time while shes on commode . Set up required for upper body/face. Assistance provided for washing her back. Sit>stand SBA. Pt static stands at rollator while pericare is performed and brief pulled up. Pt amb 30' around room with rollator SBA with assist for IV pole and O2 lines. remains in BS chair for seated ex. Returned to eating breakfast while in BS chair. SpO2 95% upon completion on 3L O2. Total Physical Therapy Time Total Therapy 13 Minutes Total Physical 1 Therapy Units Summary Daily Note Summary Improved transfer ability and mobility around room. Sats stable with activity on 3L O2.
--- NOTE | 2025-01-13 10:09 | SWNOTE1 ---
2nd notice of IMM reviewed with patient, no questions at this time.
--- NOTE | 2025-01-13 10:46 | CM.NOTE ---
Rounds made with Dr. Ohara. Dr. Ohara reviews plan of care with Diana. Diana verbalizes understanding. No discharge today.
--- NOTE | 2025-01-13 10:46 | PM.IMPN1 ---
Progress Note: A&P Assessment and Plan (1) HCAP (healthcare-associated pneumonia): Assessment and Plan: On IV vancomycin and imipenem for suspected superimposed bacterial pneumonia likely due to resistant organisms due to prior history of chronic lung disease, recent hospital admissions and broad-spectrum antibiotic use Day 4 of IV antibiotic. (2) RLL pneumonia: Assessment and Plan: Likely superimposed bacterial pneumonia on COVID-19 infection. On broad-spectrum antibiotics for suspected hospital-acquired pneumonia along with remdesivir for COVID. Qualifiers: Pneumonia type: due to unspecified organism Qualified Code(s): J18.9 - Pneumonia, unspecified organism (3) Acute on chronic diastolic (congestive) heart failure: Assessment and Plan: More or less euvolemic. Discontinue IV Lasix. Switch to p.o. Lasix. (4) Acute exacerbation of chronic obstructive pulmonary disease (COPD): Assessment and Plan: Clinically improving. Wean off IV steroids. Decreased Solu-Medrol to 40 mg every 8 hours. Continue with DuoNebs. (5) Severe persistent asthma with exacerbation: Assessment and Plan: On IV Solu-Medrol, DuoNebs. Decrease Solu-Medrol to 40 every 8 hours (6) Acute and chronic respiratory failure with hypoxia: Assessment and Plan: Improving. Wean off oxygen as tolerated. Transitioned to 3 L oxygen via nasal cannula. (7) COVID-19: Assessment and Plan: On IV remdesivir. On IV steroids. Monitor closely.. (8) Chronic respiratory failure with hypoxia: Assessment and Plan: Uses 2 to 3 L of oxygen at baseline. Patient more or less at her baseline oxygen now. (9) Tracheobronchomalacia: Assessment and Plan: Patient was previously referred to interventional pulmonology but refused to undergo any invasive procedures. Will benefit from weight loss. Treat underlying sleep apnea. (10) Hypertension: Assessment and Plan: Blood pressure is stable continue with home medications. Qualifiers: Hypertension type: primary hypertension Qualified Code(s): I10 - Essential (primary) hypertension (11) Morbid obesity: Assessment and Plan: Patient will benefit from weight loss. (12) Diet-controlled diabetes mellitus: Assessment and Plan: Typically well-controlled without any medications. However when she is receiving steroids, her blood glucose tends to get very high. On sliding scale insulin. Added Levemir. Monitor blood glucose closely. A1c 7.1 Plan Will monitor overnight to ensure her respiratory status remains stable as she is at high risk of readmission because of her chronic lung disease. If remains on 2 to 3 L of oxygen and subjectively better from respiratory point of view, potential discharge tomorrow. Initially, because of her physical deconditioning plan was to discharge her to rehab. However she is feeling overall better and working with PT/OT. Once medically stable, she can likely be discharged home with home health. She will need prolonged prednisone taper upon discharge. She will also need 3 to 5 days of oral antibiotic upon discharge. Internal Medicine - PN: Subj Subjective Interval history: Seen and examined. Patient weaned off of high flow oxygen. Currently on 3 L of oxygen. No overnight events. Exam Constitutional Vital Signs, click to edit/add: Last Vital Signs Temp 97.3 F L 01/13/25 06:00 Pulse 85 01/13/25 09:54 Resp 22 H 01/13/25 06:00 BP 121/64 01/13/25 06:00 Pulse Ox 94 L 01/13/25 07:51 O2 Del Method Nasal Cannula 01/13/25 07:51 O2 Flow Rate 3 01/13/25 07:51 FiO2 40 01/13/25 03:55 Documenting provider has reviewed patient's vital signs: yes Common normals: oriented x3 General appearance: cooperative, ill appearing and frail appearing Respiratory Common normals: normal respiratory effort and no use of accessory muscles Effort & inspection: able to speak in complete sentences Other: Coarse/harsh breath sounds. No wheezing. No evidence of respiratory distress. Cardio Common normals: regular rate, S1 normal heart sound and S2 normal heart sound Rate: regular rate Heart sounds: S1 normal and S2 normal Extremity Common normals: no clubbing, cyanosis or edema Neuro Common normals: oriented x3, moves all extremities and no focal motor deficits Psych Common normals: mental status grossly normal, denies hallucinations, denies homicidal ideation and denies suicidal ideation Internal Medicine - PN: Obj Da Labs Labs: Laboratory Results - last 24 hr 01/12/25 01/12/25 01/13/25 14:00 21:57 05:46 WBC 8.1 RBC 3.55 L Hgb 10.8 L Hct 33.1 L MCV 93.2 MCH 30.4 MCHC 32.6 RDW 13.9 Plt Count 245 MPV 9.7 Neut % (Auto) 83.3 H Lymph % (Auto) 3.8 L [place] % (Auto) 7.8 Eos % (Auto) 0.1 L Baso % (Auto) 0.2 Neut # (Auto) 6.7 H Lymph # (Auto) 0.3 L [place] # (Auto) 0.6 Eos # (Auto) 0.0 Baso # (Auto) 0.0 Abs Immat Gran (auto) 0.39 H Imm/Tot Granulo (auto) 4.8 H Sodium 139 Potassium 4.8 Chloride 99 Carbon Dioxide 33.9 H Anion Gap 10.9 BUN 36.0 H Creatinine 1.21 H Est GFR ( Amer) 54 L Est GFR (Non-Af Amer) 44 L BUN/Creatinine Ratio 29.8 Glucose 258 H Calcium 8.1 L NT-Pro-B Natriuret Pep 519.0 Urine Color Lt. yellow Urine Clarity Clear Urine pH 6.0 Ur Specific [place] 1.010 Urine Protein Negative Urine Glucose (UA) 500 A Urine Ketones Negative Urine Occult Blood Negative Urine Nitrite Negative Urine Bilirubin Negative Urine Urobilinogen 0.2 Ur Leukocyte Esterase Negative Urine RBC None seen Urine WBC 0-2 A Ur Squamous Epith Cells Rare Urine Crystals None seen Urine Bacteria None seen Urine Casts None seen Urine Mucus None seen Ur Culture Indicated? No Vancomycin Trough 15.0
[2025-01-13] MEDS: BUDESONIDE 0.5 MG/2 ML AMPULE NEB IH ×2 (10:54→23:53)
--- NOTE | 2025-01-13 10:56 | SWNOTE1 ---
Pt is deciding between returning home with [facility] since she is feeling better or [facility] No discharge today.
[2025-01-13] MEDS: ACETAMINOPHEN 500 MG TABLET 1000 MG PO (11:19)
[2025-01-13] MEDS: VANCOMYCIN HCL 1,500 MG in 0.9 % SODIUM CHLORIDE 500 ML 250 MG IV (13:55)
[2025-01-13] MEDS: METHYLPREDNISOLONE SOD SUCC PF 125 MG/2 ML VIAL 40 MG IVP (15:37)
[2025-01-13] MEDS: LATANOPROST 0.005% 2.5 ML BOTTLE 1 DROP OP (21:13)
[2025-01-13] MEDS: TRAZODONE HCL 50 MG TABLET 100 MG PO (21:14)
[2025-01-14] VITALS (12 sets, daily range): BP systolic 123–150; BP diastolic 79–88; PULSE 59–78; TEMP 36.2–36.7; O2SAT 89–98
[2025-01-14] MEDS: METHYLPREDNISOLONE SOD SUCC PF 125 MG/2 ML VIAL 40 MG IVP ×2 (00:05→09:13)
[2025-01-14] MEDS: 0.9 % SODIUM CHLORIDE 250 ML 10 ML IV (05:15)
[2025-01-14] MEDS: BACLOFEN 10 MG TABLET PO (05:16)
[2025-01-14] MEDS: NYSTATIN 500,000 UNIT/5 ML ORAL.SUSP 500000 UNIT PO (05:16)
[2025-01-14] MEDS: IMIPENEM/CILASTATIN SODIUM 500 MG in 0.9 % SODIUM CHLORIDE 100 ML 200 MG IV (05:17)
[2025-01-14 06:35] LABS: Basophils Percent Auto 0.3 % (0.2-2.0); Eosinophils Percent Auto 0.3 % (0.9-7.0); Hemoglobin 12.2 g/dL (12.0-16.0); Immature Granulocytes Abs Auto 0.57 10^3/uL (0.00-0.03); Immature Granulocytes Pct Auto 5.9 % (0.0-0.5); Lymphocytes Absolute Auto 0.6 10^3/uL (1.2-3.8); Lymphocytes Percent Auto 5.7 % (20.5-60.0); Mean Corpuscular Hemoglobin 29.9 pg (26.7-34.0); Mean Corpuscular Volume 90.7 fL (81.0-99.0); Mean Platelet Volume 9.8 fL (9.5-13.5); Monocytes Absolute Auto 0.7 10^3/uL (0.3-0.8); Monocytes Percent Auto 7.1 % (1.7-12.0); Neutrophils Absolute Auto 7.9 10^3/uL (1.4-6.5); Neutrophils Percent Auto 80.7 % (43.0-75.0); Platelet Count 260 10^3/uL (150-450); Red Blood Count 4.08 10^6/uL (4.20-5.40); Red Cell Distribution Width 13.9 % (11.0-15.0); White Blood Count 9.7 10^3/uL (4.0-11.0)
[2025-01-14 06:57] LABS: Anion Gap 8.4; BUN Creatinine Ratio 35.1; Calcium 8.1 mg/dL (8.5-10.1); Chloride 98 mmol/L (98-107); Estimated GFR (African America 57 (>=60 mL/min/1.73m^2); Estimated GFR (Non-African Ame 47 (>=60 mL/min/1.73m^2); Glucose 261 mg/dL (74-106); Potassium 4.4 mmol/L (3.5-5.1); Sodium 135 mmol/L (136-145)
[2025-01-14] MEDS: SODIUM CHLORIDE 3% INHALATION 15 ML NEB 3 ML IH (07:31)
[2025-01-14] MEDS: IPRATROPIUM/ALBUTEROL SULFATE 3 ML AMPUL.NEB IH (07:32)
--- NOTE | 2025-01-14 08:40 | PC.NURSE ---
[place] Champion was alert, awake, and comfortable. Vital signs: BP:144/83, HR:60, RR:16, SPO2: 98% 3L NC, Temp:98.0 BS:232 Midline cath was intact BM 01/15/24 @8am, diarrhea No signs of N&V, no chest pain, NSR SOB and Wheezing, productive cough Lung sounds had wheezing and rhonchi
[2025-01-14] MEDS: INSULIN ASPART 300 UNIT/3 ML PEN SUBQ (09:11)
[2025-01-14] MEDS: INSULIN GLARGINE 300 UNIT/3 ML INSULN.PEN 20 UNIT SQ (09:11)
[2025-01-14] MEDS: FAMOTIDINE 20 MG TABLET 40 MG PO (09:12)
[2025-01-14] MEDS: PAROXETINE HCL 20 MG TABLET 30 MG PO (09:12)
[2025-01-14] MEDS: SOLIFENACIN SUCCINATE 10 MG TABLET PO (09:12)
[2025-01-14] MEDS: BENZONATATE 100 MG CAPSULE 200 MG PO (09:12)
[2025-01-14] MEDS: ENOXAPARIN SODIUM 40 MG/0.4 ML SYRINGE SUBQ (09:12)
[2025-01-14] MEDS: MAGNESIUM OXIDE 400 MG TABLET PO (09:12)
[2025-01-14] MEDS: CETIRIZINE HCL 10 MG TABLET 20 MG PO (09:12)
[2025-01-14] MEDS: NYSTATIN 15 GM POWDER 1 APPLIC TOPICAL (09:13)
[2025-01-14] MEDS: MONTELUKAST SODIUM 10 MG TABLET PO (09:13)
[2025-01-14] MEDS: OMEPRAZOLE 20 MG CAPSULE.DR PO (09:13)
[2025-01-14] MEDS: ACETAMINOPHEN 500 MG TABLET 1000 MG PO (09:13)
[2025-01-14] MEDS: PREGABALIN 75 MG CAPSULE PO (09:13)
--- NOTE | 2025-01-14 10:49 | CM.NOTE ---
Rounds made with Dr. Barboza. Dr. Barboza reviews plan of care with [place]. Plan for discharge home with home health today. Understanding verbalized.
--- NOTE | 2025-01-14 11:51 | P.DS_ITS ---
DS: Providers Provider Date of admission: 01/08/25 15:49 Primary care physician: Kaylene López NP Consults: 01/08/25 18:07 Consult to Pharmacy Routine Consulting Provider: Reason for consultation: Please [place] me when Med Rec is Updated Has provider been notified: No Occupational Therapy Eval and Treat Routine Reason for consultation: Only if needed for Rehab Has provider been notified: No Physical Therapy Eval and Treat Routine Reason for consultation: Eval and Treat Has provider been notified: No DS: Diagnosis Discharge Diagnosis (1) HCAP (healthcare-associated pneumonia): (2) Acute exacerbation of chronic obstructive pulmonary disease: (3) Acute and chronic respiratory failure with hypoxia: (4) Acute on chronic diastolic (congestive) heart failure: (5) COVID-19: (6) Diet-controlled diabetes mellitus: (7) Hypertension: Qualifiers: Hypertension type: primary hypertension Qualified Code(s): I10 - Essential (primary) hypertension (8) Critical illness myopathy: (9) Tracheobronchomalacia: DS: Summary Hospital Course Hospital Course: Reason for admission: See ER note and H&P for details. 69 y/o female to ER with SOB. Admitted 01/02-01/07 with pneumonia and discharged with augmentin and prednisone. [place] significantly worse at home and severe SOB. Severe fatigue and continued cough. Returned to ER and SpO2 86% on 4 LPM. Placed on vapotherm. WBC increased to 21 and covid positive. Admitted for treatment. Hospital course: Pulmonology consulted. Started Primaxin and vanco due to likely HCAP. Started steroids and breathing treatments. Added remdesivir. Slowly improved in hospital. Less SOB. Able to wean off high flow oxygen and on nasal canula. Less SOB and chest not as tight. Back to home 3 LPM. Discharged home in stable condition. Completed antibiotics and resume home medication as directed. Follow up with PCP in 1-2 weeks. Time Spent with Patient Time attestation: Total time spent providing and/or coordinating discharge services: Time spent: greater than 30 minutes Exam Constitutional Vital Signs, click to edit/add: Last Vital Signs Temp 98.0 F 01/14/25 11:06 Pulse 77 01/14/25 11:06 Resp 21 H 01/14/25 11:06 BP 123/85 01/14/25 11:06 Pulse Ox 92 L 03/11/25 11:06 O2 Del Method Nasal Cannula 01/14/25 11:06 O2 Flow Rate 3 01/14/25 11:06 FiO2 40 01/13/25 03:55 Documenting provider has reviewed patient's vital signs: yes Common normals: no apparent distress, oriented x3 and alert HENMT Common normals: normocephalic Eye Common normals: PERRL and EOMs intact bilaterally Respiratory Common normals: normal respiratory effort and clear to auscultation bilaterally Cardio Common normals: regular rate, regular rhythm, no gallops, no murmurs and no rub GI Common normals: Normal to inspection, nondistended, normoactive bowel sounds present and non-tender Extremity Common normals: no pedal edema DS: Data Data Completed and Pending Labs on day of discharge: Labs from last 24 hours 01/14/25 06:14 WBC 9.7 RBC 4.08 L Hgb 12.2 Hct 37.0 MCV 90.7 MCH 29.9 MCHC 33.0 RDW 13.9 Plt Count 260 MPV 9.8 Neut % (Auto) 80.7 H Lymph % (Auto) 5.7 L [place] % (Auto) 7.1 Eos % (Auto) 0.3 L Baso % (Auto) 0.3 Neut # (Auto) 7.9 H Lymph # (Auto) 0.6 L [place] # (Auto) 0.7 Eos # (Auto) 0.0 Baso # (Auto) 0.0 Abs Immat Gran (auto) 0.57 H Imm/Tot Granulo (auto) 5.9 H Sodium 135 L Potassium 4.4 Chloride 98 Carbon Dioxide 33.0 H Anion Gap 8.4 BUN 40.0 H Creatinine 1.14 H Est GFR ( Amer) 57 L Est GFR (Non-Af Amer) 47 L BUN/Creatinine Ratio 35.1 Glucose 261 H Calcium 8.1 L NT-Pro-B Natriuret Pep 452.0 Preliminary micro results at discharge 01/09/25 16:20 Lower Respiratory Culture - Preliminary Sputum - Expectorated Sputum Gram negative jarek 01/08/25 14:05 Blood Culture Result 2 - Preliminary Blood - Right Wrist NO GROWTH AT 36-48 HOURS. FINAL TO FOLLOW. 01/08/25 13:55 Blood Culture Result 1 - Preliminary Blood - Right Forearm NO GROWTH AT 36-48 HOURS. FINAL TO FOLLOW. Discharge Plan Discharge Disposition: Home, Self-Care Condition: Fair Discharge Medications: New prednisone 10 mg tablets,dose pack 10 mg PO DAILY Qty: 39 0RF Rx Instructions: 6 PO daily x 3 days, then 4 PO daily x 3 days, then 2 PO daily x 3 days, then 1 PO daily x 3 days doxycycline hyclate 100 mg capsule 100 mg PO BID 10 Days Qty: 20 0RF Continued albuterol sulfate 2.5 mg /3 mL (0.083 %) solution for nebulization 2.5 mg inhalation QID PRN (Reason: shortness of breath or wheezing) sodium chloride 0.9 % solution for nebulization 2.5 ml INHALATION Q8H PRN (Reason: shortness of breath or wheezing) latanoprost 0.005 % drops 1 drp OPHTHALMIC (EYE) .HS magnesium oxide 400 mg (241.3 mg magnesium) tablet 400 mg PO DAILY Rx Instructions: WITH FOOD omeprazole 20 mg capsule,delayed release(DR/EC) 20 mg PO BID Trelegy Ellipta 200-62.5-25 mcg blister with device 1 inh INHALATION Q24H pramipexole [Mirapex] 0.25 mg tablet 0.25 mg PO QPM PRN (Reason: restless leg(s)) Rx Instructions: administer 2 - 3 hours before bedtime montelukast 10 mg tablet 10 mg PO DAILY paroxetine HCl 30 mg tablet 30 mg PO QDAY pregabalin 75 mg capsule 75 mg PO BID solifenacin 10 mg tablet 10 mg PO QDAY trazodone 100 mg tablet 100 mg PO .qhs baclofen 10 mg tablet 10 mg PO Q8H amoxicillin-pot clavulanate 875-125 mg tablet 1 tab PO Q12H Qty: 20 0RF Patient Comments: 01/07/25-01/16/25 Held prednisone 10 mg tablet 30 mg PO DAILY Qty: 20 0RF Hold Instructions: Hold until complete steroid taper Rx Instructions: 3/day for 3 days, 2/day for 3 days, 1/day for 3 days, 1/2 /day for 4 days Activity: resume usual activities as tolerated Diet: advance to your usual diet Print Language: Faroese Patient Instructions: Doxycycline (By mouth), Prednisone (By mouth), Dehydration (DC), COPD (Chronic Obstructive Pulmonary Disease) (DC), COVID-19 (Coronavirus Disease 2019) (DC) Forms: Portal Instructions Follow Up Appointments: Jan. @ 10am with Kaylene López NP [phone] @ 10:30am with Dr. Lopes [phone]
--- NOTE | 2025-01-14 13:57 | SWNOTE1 ---
Pt has decided she wants to go home with [facility]. Pt is on 3 liters of oxygen. SW did let pt know that last time she was here, doctor did bump her up to 4 liters of oxygen. JAZMIN faxed dc med rec, dc summary, and CRF to [facility].
--- NOTE | 2025-01-14 14:19 | NUTR.NU ---
[place] continues w/good PO intakes of regular diet, which average 95% and appear to meet her estimated nutrient requirements. Abnormal lab results obtained 01/14/25 indicate hyperglycemia, hypocalcemia, hyponatremia, and impaired renal function. Mild edema continues. Encourage adequate energy, PRO, and fluid intakes. Will continue to follow PRN.
--- NOTE | 2025-01-15 10:39 | CM.NOTE ---
Sputum culture results given to Dr. Barboza. Will give to office staff today. Appointment with RIKKI Maurice 01/16/25 @ [phone].
--- NOTE | 2025-01-15 14:52 | CM.DCFOLLOWU ---
Person spoke with: [place] Champion How are you feeling? Better, just tired & a little weak How is your pain? none Did you understand your discharge instructions?yes Do you have any questions about your discharge instructions?no Were you given any prescriptions at discharge?yes Were you able to get your prescriptions filled?yes Do you understand how to take your medications as ordered?yes Do you have any questions about your follow up appointment and do you plan to keep your follow up appointment? plans to see Kaylene López tomorrow and Dr Lopes next week Is there anything else that you would like to discuss?no Questions/Comments/Concerns/Other:none
== END 2025-01-14 12:15 | disposition home health service (06) | DRG 177 ==
LOC: ER 16:31 → MS 16:55
PROVIDERS: Internal Medicine; Admitting Provider Family Medicine; Emergency Provider Emergency Medicine; PCP Nurse Practitioner; Visit Provider Family Medicine
DX: U07.1 COVID-19 (principal); I50.33 Acute on chronic diastolic (congestive) heart failure; J96.21 Acute and chronic respiratory failure with hypoxia; J18.9 Pneumonia, unspecified organism; J44.0 Chronic obstructive pulmonary disease with (acute) lower respiratory infection; J44.1 Chronic obstructive pulmonary disease with (acute) exacerbation; G72.81 Critical illness myopathy; E44.0 Moderate protein-calorie malnutrition; J45.51 Severe persistent asthma with (acute) exacerbation; Y95 Nosocomial condition; J98.8 Other specified respiratory disorders; E11.9 Type 2 diabetes mellitus without complications; I11.0 Hypertensive heart disease with heart failure; F32.A Depression, unspecified; I25.10 Atherosclerotic heart disease of native coronary artery without angina pectoris; M96.1 Postlaminectomy syndrome, not elsewhere classified; E66.01 Morbid (severe) obesity due to excess calories; E83.42 Hypomagnesemia; M16.11 Unilateral primary osteoarthritis, right hip; D69.6 Thrombocytopenia, unspecified; Z85.828 Personal history of other malignant neoplasm of skin; Z79.51 Long term (current) use of inhaled steroids; Z79.899 Other long term (current) drug therapy; Z68.39 Body mass index [BMI] 39.0-39.9, adult
CPT/HCPCS: 36410; 36415; 36600; 71045; 71275; 80048; 80053; 80202; 81001; 82805; 82948; 83036; 83605; 83735; 83880; 84484; 85007; 85025; 85027; 87040; 87070; 87150; 87186; 87205; 87420; 87493; 87804; 87811; 93005; 94640; 94667; 94668; 94761; 94799; 96365; 97110; 97163; 97165; 97530; 97535; 99285; J0248; J0743; J1650; J1940; J2919; J3370; Q9967

== ENCOUNTER 2025-03-03 07:47 | Outpatient (OUT) | payer MEDICARE, MEDICAID, SELFPAY ==
--- NOTE | 2025-03-03 07:51 | MM_ITS ---
Patient Name: JHONATAN MONTOYA MR#: [id number] : 1955 Exam Date: 03/03/2025 Ordering Doctor: CLEO López CNP RADIOLOGY REPORT PROCEDURE: MM SCREENING MAMMO BI COMPARISON: MM TOMOSYNTHESIS SCREENING BI, 02/28/2024. MG MAMM SCREEN 3D PRATEEK CAD, 12/15/2022. MG MAMM SCREEN 3D PRATEEK CAD, 11/26/2021. MG MAMM PRATEEK SCRN W CAD DIG, 12/16/2013. INDICATIONS: Screening Calculator Name NCI Breast Cancer Risk Assessment Tool 5 Year Breast Cancer Risk 1.20% Lifetime Breast Cancer Risk 4.00% Personal Breast Cancer No Personal Ovarian Cancer No Treatments Excision, radiation, chemotherapy Family Cancers None LOCATION: [facility] BREAST COMPOSITION: The breasts are almost entirely fatty. FINDINGS: DIAGNOSTIC CATEGORY 1--NEGATIVE. RIGHT BREAST: No significant suspicious finding. LEFT BREAST: No significant suspicious finding. RECOMMENDATIONS: ROUTINE MAMMOGRAM AND CLINICAL EVALUATION IN 12 MONTHS. PLEASE NOTE: A NORMAL MAMMOGRAM DOES NOT EXCLUDE THE POSSIBILITY OF BREAST CANCER. A CLINICALLY SUSPICIOUS PALPABLE LUMP SHOULD BE BIOPSIED. Dictated by: Marcos Medina DO on 03/03/2025 at 16:38 Approved by: Marcos Medina DO on 03/03/2025 at 16:42
== END 2025-03-03 07:48 | disposition home or self-care (01) ==
LOC: MAMMO 07:47
PROVIDERS: PCP Nurse Practitioner; Visit Provider Nurse Practitioner
DX: Z12.31 Encounter for screening mammogram for malignant neoplasm of breast (principal)
CPT/HCPCS: 77067

== ENCOUNTER 2025-03-10 15:44 | Inpatient (IN) | payer MEDICARE, MEDICAID, SELFPAY ==
[2025-03-10] VITALS (43 sets, daily range): BP systolic 124–142; BP diastolic 61–102; PULSE 67–96; TEMP 36.3–37.4; O2SAT 90–96; BMI 38.1
--- NOTE | 2025-03-10 15:57 | ECG_ITS ---
[facility] Test Date: 2025-03-10 Pat Name: JHONATAN MONTOYA Department: Room: - Gender: Female Water Trainer: : 1955 Requested By: [id number] Order Number: [id number] Flaca MD: ALICIA TOUSSAINT M.D. Measurements Intervals [place] Rate: 93 P: 66 MD: 126 QRS: 51 QRSD: 108 T: 60 QT: 378 QTc: 429 Interpretive Statements 1100 Sinus rhythm 1470 with occasional supraventricular premature complexes [address] depression 8102 Low QRS voltage in chest leads 9150 abnormal ECG Compared to ECG 01/08/2025 13:49:28 Low QRS voltage now present ST (T wave) deviation still present Electronically Signed On 03-10-2025 17:59:01 EDT by ALICIA TOUSSAINT M.D.
--- NOTE | 2025-03-10 15:58 | ED.SOB1 ---
HPI - SOB/Dyspnea General Chief Complaint: Shortness of Breath/Dyspnea Stated Complaint: WEAKNESS, SOB Time Seen by Provider: 03/10/25 15:46 Source: patient Mode of arrival: walk-in History of Present Illness HPI Narrative: 69 year old female presents to the ED for a nonproductive cough, SOB. Onset was this morning. She has hx COPD. Denies fever, chills, edema, emesis. Reports generalized weakness, fatigue. She did have an episode of diarrhea here in the ED. She wears [place] oxygen at 3L. Related Data Home Medications ?Medication ?Instructions ?Recorded ?Confirmed magnesium oxide 400 mg (241.3 mg 400 mg PO DAILY 04/10/23 03/10/25 magnesium) tablet omeprazole 20 mg capsule,delayed 20 mg PO BID 04/10/23 03/10/25 release montelukast 10 mg tablet 10 mg PO DAILY 09/14/23 03/10/25 pregabalin 75 mg capsule 75 mg PO BID 11/25/23 03/10/25 solifenacin 10 mg tablet 10 mg PO QDAY 11/25/23 03/10/25 trazodone 100 mg tablet 100 mg PO .qhs 11/25/23 03/10/25 baclofen 10 mg tablet 10 mg PO Q8H 02/03/24 03/10/25 albuterol sulfate 2.5 mg/3 mL 2.5 mg inhalation QID PRN 06/06/24 03/10/25 (0.083 %) solution for nebulization shortness of breath or wheezing sodium chloride 0.9 % for 2.5 ml inhalation Q8H PRN 06/28/24 03/10/25 nebulization shortness of breath or wheezing latanoprost 0.005 % eye drops 1 drp ophthalmic (eye) .HS 08/09/24 03/10/25 budesonide 160 mcg-glycopyr 9 2 inh inhalation Q12H 03/10/25 03/10/25 mcg-formot 4.8 mcg/actuation HFA inhaler (Breztri Aerosphere) nystatin 100,000 unit/gram topical 1 applic topical BID 03/10/25 03/10/25 cream paroxetine HCl 40 mg tablet 40 mg PO DAILY 03/10/25 03/10/25 Allergies Allergy/AdvReac Type Severity Reaction Status Date / Time No Known Drug Allergies Allergy Verified 01/02/25 15:47 Review of Systems ROS Constitutional Denies: fever or chills Cardiovascular Denies: chest pain Respiratory Reports: shortness of breath, cough and wheezing Gastrointestinal Reports: diarrhea; Denies: abdominal pain, nausea or vomiting Genitourinary Denies: painful urination Musculoskeletal Denies: back pain Integumentary/Breast Denies: rash Neurological Denies: headache or dizziness [facility] Medical History (Updated 03/10/25 @ 22:02 by Shobha Scherer) Diet-controlled diabetes mellitus ?E11.9 - Type 2 diabetes mellitus without complications (ICD-10) Tracheobronchomalacia ?J39.8 - Other specified diseases of upper respiratory tract (ICD-10) 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 - Critical illness myopathy (ICD-10) Upper respiratory infection ?J06.9 - Acute upper respiratory infection, unspecified (ICD-10) Hypoxemia ?R09.02 - Hypoxemia (ICD-10) Acute and chronic respiratory failure ?J96.20 - Acute and chronic respiratory failure, unspecified whether with hypoxia or hypercapnia (ICD-10) Weakness ?R53.1 - Weakness (ICD-10) RLL pneumonia ?J18.9 - Pneumonia, unspecified organism (ICD-10) Acute viral syndrome ?B34.9 - Viral infection, unspecified (ICD-10) Asthma exacerbation in COPD ?J44.1 - Chronic obstructive pulmonary disease with (acute) exacerbation (ICD-10) Hypomagnesemia ?E83.42 - Hypomagnesemia (ICD-10) Acute hypokalemia ?E87.6 - Hypokalemia (ICD-10) Pneumonia ?J18.9 - Pneumonia, unspecified organism (ICD-10) Melanoma ?C43.9 - Malignant melanoma of skin, unspecified (ICD-10) Mediastinal lymphadenopathy ?R59.0 - Localized enlarged lymph nodes (ICD-10) Restrictive lung disease ?J98.4 - Other disorders of lung (ICD-10) CAD (coronary artery disease) ?I25.10 - Atherosclerotic heart disease of [place] coronary artery without angina pectoris (ICD-10) Chronic heart failure with preserved ejection fraction (HFpEF) ?I50.32 - Chronic diastolic (congestive) heart failure (ICD-10) Acute exacerbation of COPD with asthma ?J44.1 - Chronic obstructive pulmonary disease with (acute) exacerbation (ICD-10) ?J45.901 - Unspecified asthma with (acute) exacerbation (ICD-10) Lumbar radiculopathy ?M54.16 - Radiculopathy, lumbar region (ICD-10) Encounter for long-term opiate analgesic use ?Z79.891 - patient support partner (current) use of opiate analgesic (ICD-10) Failed back syndrome ?M96.1 - Postlaminectomy syndrome, not elsewhere classified (ICD-10) Acute exacerbation of chronic low back pain ?M54.50 - Low back pain, unspecified (ICD-10) ?G89.29 - Other chronic pain (ICD-10) Thoracic spondylosis ?M47.814 - Spondylosis without myelopathy or radiculopathy, thoracic region (ICD-10) Hypoxia ?R09.02 - Hypoxemia (ICD-10) URI (upper respiratory infection) ?J06.9 - Acute upper respiratory infection, unspecified (ICD-10) Orthostasis ?I95.1 - Orthostatic hypotension (ICD-10) Community acquired pneumonia ?J18.9 - Pneumonia, unspecified organism (ICD-10) Severe malnutrition ?E43 - Unspecified severe protein-calorie malnutrition (ICD-10) Acute exacerbation of chronic obstructive pulmonary disease (COPD) ?J44.1 - Chronic obstructive pulmonary disease with (acute) exacerbation (ICD-10) Severe persistent asthma with exacerbation ?J45.51 - Severe persistent asthma with (acute) exacerbation (ICD-10) Morbid obesity ?E66.01 - Morbid (severe) obesity due to excess calories (ICD-10) Other pulmonary collapse ?J98.19 - Other pulmonary collapse (ICD-10) Chronic respiratory failure with hypoxia ?J96.11 - Chronic respiratory failure with hypoxia (ICD-10) Bronchitis ?J40 - Bronchitis, not specified as acute or chronic (ICD-10) Acute exacerbation of chronic obstructive pulmonary disease ?J44.1 - Chronic obstructive pulmonary disease with (acute) exacerbation (ICD-10) Myofascial pain ?M79.18 - Myalgia, other site (ICD-10) Greater trochanteric bursitis ?M70.60 - Trochanteric bursitis, unspecified hip (ICD-10) Osteoarthritis of right hip ?M16.11 - Unilateral primary osteoarthritis, right hip (ICD-10) Lumbar spondylosis ?M47.816 - Spondylosis without myelopathy or radiculopathy, lumbar region (ICD-10) Lumbar postlaminectomy syndrome ?M96.1 - Postlaminectomy syndrome, not elsewhere classified (ICD-10) Lumbar stenosis with neurogenic claudication ?M48.062 - Spinal stenosis, lumbar region with neurogenic claudication (ICD-10) Depression ?F32.A - Depression, unspecified (ICD-10) Chronic low back pain ?M54.50 - Low back pain, unspecified (ICD-10) ?G89.29 - Other chronic pain (ICD-10) Hypoxia ?R09.02 - Hypoxemia (ICD-10) Heart murmur ?R01.1 - Cardiac murmur, unspecified (ICD-10) Chronic obstructive pulmonary disease ?J44.9 - Chronic obstructive pulmonary disease, unspecified (ICD-10) Asthma ?J45.909 - Unspecified asthma, uncomplicated (ICD-10) Surgical History H/O cataract removal with insertion of prosthetic lens ?Z98.49 - Cataract extraction status, unspecified eye (ICD-10) ?Z96.1 - Presence of intraocular lens (ICD-10) Status post hip surgery ?Z98.890 - Other specified postprocedural states (ICD-10) H/O foot surgery ?Z98.890 - Other specified postprocedural states (ICD-10) H/O tubal ligation ?Z98.51 - Tubal ligation status (ICD-10) History of lumbar fusion ?Z98.1 - Arthrodesis status (ICD-10) Family History Mother Family history of CHF (congestive heart failure) Family history of hypertension Father Family history of hypertension Family history of myocardial infarction Social History (Updated 01/08/25 @ 17:25 by Yuni Loza RN) Within the past year, how often did you have a drink containing alcohol: never Score interpretation: A score less than 3 is consistent with normal alcohol consumption. Smoking status: Never smoker Second hand tobacco smoke exposure: No Non-prescribed substance use: denies use Previous occupational history: retired Highest level of school completed/degree received: Associate degree: occupational, technical, vocational program Are you now , , , , never or living with a partner: In a typical week, how many times do you talk on the telephone with family, friends, or neighbors: 3 or more times per week How often do you get together with friends or relatives: 3 or more times per week How often do you attend mu-ism or yazdanism services: 4 or more times per year Do you belong to any clubs or organizations such as mu-ism groups unions, fraternal or athletic groups, or school groups: no Total score: 2 Score interpretation: A score of greater than or equal to 2 indicates the lowest level of social isolation. Little interest or pleasure in doing things: not at all Feeling down, depressed, or hopeless: not at all Feel stressed/tense/nervous/anxious/difficulty sleeping: not at all Do you think of yourself as: straight/heterosexual Gender Identity: female Exam Constitutional Vital Signs, click to edit/add: Last Vital Signs Temp 97.4 F L 03/10/25 21:21 Pulse 67 03/10/25 21:50 Resp 23 H 03/10/25 21:50 BP 124/65 03/10/25 21:14 Pulse Ox 91 L 03/10/25 21:50 O2 Del Method Nasal Cannula 03/10/25 16:20 O2 Flow Rate 2.5 03/10/25 16:20 Common normals: no apparent distress and oriented x3 General appearance: cooperative HENNH Common normals: external ears normal, moist oral mucous membranes and oropharynx normal Eye Common normals: conjunctivae normal and no scleral icterus Neck & C-Spine Common normals: supple Chest Chest: symmetrical chest wall rise Respiratory Common normals: normal respiratory effort Effort & inspection: able to speak in complete sentences and symmetric chest movement Auscultation: rhonchi and diminished lung sounds Cardio Common normals: regular rate and regular rhythm Extremity Common normals: no pedal edema Neuro Common normals: oriented x3, moves all extremities and no focal motor deficits Sensorium/orientation: awake and alert Speech: speech normal Course Vital Signs Vital signs: Vital Signs Temperature 99.3 F 03/10/25 15:51 Pulse Rate 96 H 03/10/25 15:51 Respiratory Rate 24 H 03/10/25 15:51 Blood Pressure 142/96 H 03/10/25 15:51 Pulse Oximetry 92 L 03/10/25 15:51 Oxygen Delivery Method Nasal Cannula 03/10/25 15:51 Oxygen Delivery Flow Rate 3 03/10/25 15:51 Temperature 97.4 F L 03/10/25 21:21 Pulse Rate 67 03/10/25 21:50 Respiratory Rate 23 H 03/10/25 21:50 Blood Pressure 124/65 03/10/25 21:14 Pulse Oximetry 91 L 03/10/25 21:50 Oxygen Delivery Method Nasal Cannula 03/10/25 16:20 Oxygen Delivery Flow Rate 2.5 03/10/25 16:20 MDM - SOB/Dyspnea MDM Narrative Medical decision making narrative: WBC count was 18.5. Covid-19 and influenza were negative. The patient has generalized weakness. She was up to a wheelchair to use the restroom with a 2-person assist. It is felt she would not be safe being discharged today. Chest x-ray showed pneumonia and pulmonary edema. Findings were discussed. She was given IV antibiotics and IV Lasix. I spoke with Mary Carmen GALLO who acceptted the patient for admission on behalf of Dr. Ohara. The patient is in agreement with admission. Differential Diagnosis Differential diagnosis: Likely acute exacerbation of chronic obstructive airways disease, congestive heart failure and community acquired pneumonia Medical Records Attestation: I reviewed the patient's medical records. Lab Data Attestation: I reviewed the patient's lab results. Labs: Lab Results 03/10/25 03/10/25 Range/Units 16:07 18:43 WBC 18.5 H (4.0-11.0) 10^3/uL RBC 3.56 L (4.20-5.40) 10^6/uL Hgb 11.3 L (12.0-16.0) g/dL Hct 35.2 L (36.0-48.0) % MCV 98.9 (81.0-99.0) fL MCH 31.7 (26.7-34.0) pg MCHC 32.1 (29.9-35.2) g/dL RDW 13.7 (11.0-15.0) % Plt Count 299 (150-450) 10^3/uL MPV 9.1 L (9.5-13.5) fL Neut % (Auto) 82.2 H (43.0-75.0) % Lymph % (Auto) 9.4 L (20.5-60.0) % Bradford % (Auto) 6.7 (1.7-12.0) % Eos % (Auto) 0.5 L (0.9-7.0) % Baso % (Auto) 0.3 (0.2-2.0) % Neut # (Auto) 15.2 H (1.4-6.5) 10^3/uL Lymph # (Auto) 1.7 (1.2-3.8) 10^3/uL Bradford # (Auto) 1.2 H (0.3-0.8) 10^3/uL Eos # (Auto) 0.1 (0.0-0.7) 10^3/uL Baso # (Auto) 0.1 (0.0-0.1) 10^3/uL Abs Immat Gran (auto) 0.16 H (0.00-0.03) 10^3/uL Imm/Tot Granulo (auto) 0.9 H (0.0-0.5) % Sodium 139 (136-145) mmol/L Potassium 3.4 L (3.5-5.1) mmol/L Chloride 102 (98-107) mmol/L Carbon Dioxide 31.1 (21.0-32.0) mmol/L Anion Gap 9.3 BUN 6.0 L (7.0-18.0) mg/dL Creatinine 1.04 H (0.55-1.02) mg/dL Est GFR ( Amer) >60 (>=60 mL/min/1.73m^2) Est GFR (Non-Af Amer) 53 L (>=60 mL/min/1.73m^2) BUN/Creatinine Ratio 5.8 Glucose 119 H (74-106) mg/dL Calcium 8.2 L (8.5-10.1) mg/dL Total Bilirubin 0.4 (0.2-1.0) mg/dL AST 18 (15-37) U/L ALT 14 (14-59) U/L Alkaline Phosphatase 81 (46-116) U/L Troponin I High Sens 22.5 (4.0-51.3) pg/mL NT-Pro-B Natriuret Pep 1176.0 H (<=900.0) pg/mL Total Protein 6.6 (6.4-8.2) g/dL Albumin 2.3 L (3.4-5.0) g/dL Globulin 4.3 g/dL Albumin/Globulin Ratio 0.5 Influenza Type A Ag Negative Influenza Type B Ag Negative SARS-CoV-2 Ag (CV2AG) Negative (NEGATIVE) Imaging Data Chest x-ray: Attestation: I have reviewed the pertinent imaging results. Radiologist's impression: 1. Cardiac enlargement with findings suggesting pulmonary edema. 2. Opacity within the right mid lung likely representing pneumonia in the correct clinical setting. ECG Data Attestation: ?I have reviewed the pertinent ECG results. (EKG was reviewed by the attending physician. It showed sinus rhythm at a rate of 93. No STEMI.) Interpretation: Measurements Intervals [place] Rate: 93 P: 66 [place]: 126 QRS: 51 QRSD: 108 T: 60 QT: 378 QTc: 429 Interpretive Statements 1100 Sinus rhythm 1470 with occasional supraventricular premature complexes 2540 Incomplete left bundle branch block [address] depression 8102 Low QRS voltage in chest leads 9150 abnormal ECG No previous ECG available for comparison Discharge Plan Discharge Chief Complaint: Shortness of Breath/Dyspnea Clinical Impression: Generalized weakness, Community acquired pneumonia, CHF exacerbation Patient Disposition: Admitted As Inpatient Time of Disposition Decision: 22:05
[2025-03-10] MEDS: METHYLPREDNISOLONE SOD SUCC PF 125 MG/2 ML VIAL IVP (16:04)
--- NOTE | 2025-03-10 16:13 | PC.NURSE ---
Pt presents to ER for shortness of breath On arrival patient is audibly short of breath and sounds like there is fluid in her lungs Pt assisted into ER bed, pt unable to hold herself up and kept falling over Pt needed assistance moving her legs and getting comfortable in bed pt placed in a gown, pt placed on nuclear monitoring technician and EKG obtained Pt wears 3l O2 all the time, this nurse placed her on 4 at this time and she is remaining in the low 90's spO2 Pt feels warm to the touch, low grade fever Pt states she woke up like this this morning Pt's son is at bedside Pt made aware of care plan and denies needs or questions at this time
[2025-03-10] MEDS: IPRATROPIUM/ALBUTEROL SULFATE 3 ML AMPUL.NEB IH (16:19)
[2025-03-10 16:32] LABS: Basophils Absolute Auto 0.1 10^3/uL (0.0-0.1); Basophils Percent Auto 0.3 % (0.2-2.0); Eosinophils Absolute Auto 0.1 10^3/uL (0.0-0.7); Eosinophils Percent Auto 0.5 % (0.9-7.0); Hematocrit 35.2 % (36.0-48.0); Hemoglobin 11.3 g/dL (12.0-16.0); Immature Granulocytes Abs Auto 0.16 10^3/uL (0.00-0.03); Immature Granulocytes Pct Auto 0.9 % (0.0-0.5); Lymphocytes Absolute Auto 1.7 10^3/uL (1.2-3.8); Lymphocytes Percent Auto 9.4 % (20.5-60.0); Mean Corpuscular HGB Conc 32.1 g/dL (29.9-35.2); Mean Corpuscular Hemoglobin 31.7 pg (26.7-34.0); Mean Corpuscular Volume 98.9 fL (81.0-99.0); Mean Platelet Volume 9.1 fL (9.5-13.5); Monocytes Absolute Auto 1.2 10^3/uL (0.3-0.8); Monocytes Percent Auto 6.7 % (1.7-12.0); Neutrophils Absolute Auto 15.2 10^3/uL (1.4-6.5); Neutrophils Percent Auto 82.2 % (43.0-75.0); Platelet Count 299 10^3/uL (150-450); Red Blood Count 3.56 10^6/uL (4.20-5.40); Red Cell Distribution Width 13.7 % (11.0-15.0); White Blood Count 18.5 10^3/uL (4.0-11.0)
[2025-03-10 16:47] LABS: Alanine Aminotransferase 14 U/L (14-59); Albumin Globulin Ratio 0.5; Albumin Level 2.3 g/dL (3.4-5.0); Alkaline Phosphatase 81 U/L (46-116); Anion Gap 9.3; Aspartate Amino Transferase 18 U/L (15-37); BUN Creatinine Ratio 5.8; Bilirubin Total 0.4 mg/dL (0.2-1.0); Calcium 8.2 mg/dL (8.5-10.1); Carbon Dioxide 31.1 mmol/L (21.0-32.0); Chloride 102 mmol/L (98-107); Estimated GFR (African America >60 (>=60 mL/min/1.73m^2); Estimated GFR (Non-African Ame 53 (>=60 mL/min/1.73m^2); Globulin 4.3 g/dL; Glucose 119 mg/dL (74-106); Potassium 3.4 mmol/L (3.5-5.1); Sodium 139 mmol/L (136-145); Total Protein 6.6 g/dL (6.4-8.2)
[2025-03-10 16:55] LABS: Troponin I High Sensitivity 22.5 pg/mL (4.0-51.3)
[2025-03-10 19:05] LABS: Influenza Virus A Antigen Negative; Influenza Virus B Antigen Negative; Internal Control Within Normal Limits; SARS-CoV-2 Ag NEGATIVE (NEGATIVE)
--- NOTE | 2025-03-10 20:43 | PC.NURSE ---
Pt changed from breif, cleaned, chux cleaned, and patient set up on a purewick device Pt is tolerating the wait Denies further needs or questions at this time Pts son at bedside
[2025-03-10] MEDS: FUROSEMIDE 40 MG/4 ML VIAL IVP (22:41)
[2025-03-10] MEDS: CEFTRIAXONE 1,000 MG in 0.9 % SODIUM CHLORIDE 50 ML 100 MG IV (22:44)
[2025-03-10 22:56] LABS: Lactate/Lactic Acid 0.9 mmol/L (0.4-2.0)
[2025-03-10] MEDS: AZITHROMYCIN 500 MG in 0.9 % SODIUM CHLORIDE 250 ML 250 MG IV (23:11)
[2025-03-11] VITALS (25 sets, daily range): BP systolic 104–126; BP diastolic 52–74; PULSE 58–83; TEMP 36.3–36.9; O2SAT 88–96; BMI 40.8
[2025-03-11] MEDS: ACETAMINOPHEN 325 MG TABLET 650 MG PO ×2 (01:14→08:51)
[2025-03-11] MEDS: ENOXAPARIN SODIUM 40 MG/0.4 ML SYRINGE SUBQ ×2 (01:14→23:45)
[2025-03-11] MEDS: BACLOFEN 10 MG TABLET PO ×3 (01:14→16:28)
[2025-03-11] MEDS: IPRATROPIUM/ALBUTEROL SULFATE 3 ML AMPUL.NEB IH ×4 (05:30→22:08)
[2025-03-11 06:07] LABS: Basophils Percent Auto 0.1 % (0.2-2.0); Hematocrit 33.5 % (36.0-48.0); Hemoglobin 10.8 g/dL (12.0-16.0); Immature Granulocytes Abs Auto 0.08 10^3/uL (0.00-0.03); Immature Granulocytes Pct Auto 0.6 % (0.0-0.5); Lymphocytes Absolute Auto 1.2 10^3/uL (1.2-3.8); Lymphocytes Percent Auto 8.8 % (20.5-60.0); Mean Corpuscular HGB Conc 32.2 g/dL (29.9-35.2); Mean Corpuscular Hemoglobin 31.8 pg (26.7-34.0); Mean Corpuscular Volume 98.5 fL (81.0-99.0); Mean Platelet Volume 9.3 fL (9.5-13.5); Monocytes Absolute Auto 0.3 10^3/uL (0.3-0.8); Neutrophils Absolute Auto 12.1 10^3/uL (1.4-6.5); Neutrophils Percent Auto 88.5 % (43.0-75.0); Platelet Count 264 10^3/uL (150-450); Red Cell Distribution Width 13.6 % (11.0-15.0); White Blood Count 13.7 10^3/uL (4.0-11.0)
[2025-03-11 06:25] LABS: Alanine Aminotransferase 10 U/L (14-59); Albumin Globulin Ratio 0.5; Albumin Level 2.2 g/dL (3.4-5.0); Alkaline Phosphatase 73 U/L (46-116); Anion Gap 8.9; Aspartate Amino Transferase 14 U/L (15-37); BUN Creatinine Ratio 10.3; Bilirubin Total 0.3 mg/dL (0.2-1.0); Calcium 8.1 mg/dL (8.5-10.1); Carbon Dioxide 32.7 mmol/L (21.0-32.0); Chloride 105 mmol/L (98-107); Estimated GFR (African America >60 (>=60 mL/min/1.73m^2); Estimated GFR (Non-African Ame 57 (>=60 mL/min/1.73m^2); Globulin 4.4 g/dL; Glucose 143 mg/dL (74-106); Magnesium 1.9 mg/dL (1.8-2.4); Potassium 3.6 mmol/L (3.5-5.1); Sodium 143 mmol/L (136-145); Total Protein 6.6 g/dL (6.4-8.2)
[2025-03-11] MEDS: PANTOPRAZOLE SODIUM 40 MG TABLET.DR PO (08:51)
[2025-03-11] MEDS: CALCIUM CARBONATE 500 MG (200MG ELEMENTAL) TAB CHEW PO (08:51)
[2025-03-11] MEDS: PAROXETINE HCL 20 MG TABLET 40 MG PO (08:51)
[2025-03-11] MEDS: PREGABALIN 75 MG CAPSULE PO ×2 (08:51→21:12)
[2025-03-11] MEDS: NYSTATIN 100,000 UNITS/GRAM CREAM 15 GM TUBE 1 APPLIC TOPICAL ×2 (08:52→22:38)
--- NOTE | 2025-03-11 09:17 | SWNOTE1 ---
SW reviewed previous stay and pt was bumped up to 4 liters of home oxygen continuous from [facility]. SW to verify with pt and [facility].
--- NOTE | 2025-03-11 11:15 | SWNOTE1 ---
SW met with pt to discuss dc needs. Pt lives at home with her son. Pt has a rollator and wheelchair at home. Pt does wear 4 liters of home oxygen from [facility]. Pt voiced she was doing well, but the last few days felt very weak. Pt does not have [facility] HH coming in at this time, the nurse ended a few weeks ago. Pt and SW spoke about therapy and possibility of recommendation of rehab for a short time. Pt had discussed with case management and if SNF is recommended, she would want the [place]. She stated therapy will be back later as she was eating breakfast earlier. SW to stop back this afternoon. Pt would be a precert if rehab recommended.
--- NOTE | 2025-03-11 11:16 | CM.NOTE ---
Rounds made with Dr. Ohara, pt having increase dyspnea at rest and on exertion. Dr. Ohara discussed with pt about pneumonia diagnosis and plan of care. Pt inpatient status.
[2025-03-11 11:21] LABS: Glucometer 178 mg/dL (74-106)
--- NOTE | 2025-03-11 11:23 | CM.NOTE ---
Important Message From Medicare discussed with pt, pt verbalizes understanding and signs paper. Original given to pt and copy placed on pt's chart.
[2025-03-11] MEDS: SODIUM CHLORIDE 3% INHALATION 15 ML NEB IH (11:27)
[2025-03-11] MEDS: GUAIFENESIN 600 MG TAB.ER.12H PO ×2 (11:35→22:37)
[2025-03-11] MEDS: METHYLPREDNISOLONE SOD SUCC PF 40 MG/ML VIAL IVP ×2 (11:35→19:47)
[2025-03-11] MEDS: VANCOMYCIN HCL 1,000 MG in 0.9 % SODIUM CHLORIDE 250 ML 250 MG IV (11:36)
--- NOTE | 2025-03-11 11:42 | PM.HP ---
HPI H&P: HPI History of Present Illness Chief complaint: CHF,PNEUMONIA, GENERALIZED WEAKNESS Narrative: 69-year-old female with past history of severe asthma/COPD, tracheomalacia, heart failure with preserved ejection fraction, chronic respiratory failure with hypoxia and recurrent pneumonia presented to ED with 1 day history of shortness of breath, dry cough. Patient typically uses 3 L of oxygen via nasal cannula and has chronic dyspnea but last evening she could not catch her breath and sit up straight because of generalized weakness and significant dyspnea. She denies fever, chills. She reports hacking dry cough that is worse than usual. Workup in ED multifocal pneumonia along with worsening hypoxia for which patient was admitted for IV antibiotics and close inpatient monitoring. She had a CT chest earlier today that shows new bilateral infiltrates and considering her chronic lung disease, recurrent use of steroids and broad-spectrum antibiotics, she is at high risk of pneumonia secondary to resistant organisms. She was initially started on IV Rocephin and azithromycin. I switched her to IV vancomycin and Zosyn to cover her for hospital-acquired pneumonia. Patient reports considerable dyspnea that is worse from her baseline and currently is on 4 L of oxygen via nasal cannula. She typically uses 3 L of oxygen at rest. Opioid HPI Opioid Management Most Recent Pain and Opioid Data: Last Pain Scale 3 Today, 01:21 Last Pain Intensity 0 01/13/25, 11:38 Last Pain Assessment Today, 01:07 Last ORT Total Score 0 Today, 01:00 Last ORT Risk Category Low Risk Today, 01:00 Review of Systems ROS Status of ROS 10 or more systems reviewed and unremarkable except as noted in history and below [facility] Medical History (Updated 03/11/25 @ 11:50 by Shaikh Lev MD) Diet-controlled diabetes mellitus ?E11.9 - Type 2 diabetes mellitus without complications (ICD-10) Tracheobronchomalacia ?J39.8 - Other specified diseases of upper respiratory tract (ICD-10) 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 - Critical illness myopathy (ICD-10) Upper respiratory infection ?J06.9 - Acute upper respiratory infection, unspecified (ICD-10) Hypoxemia ?R09.02 - Hypoxemia (ICD-10) Acute and chronic respiratory failure ?J96.20 - Acute and chronic respiratory failure, unspecified whether with hypoxia or hypercapnia (ICD-10) Weakness ?R53.1 - Weakness (ICD-10) RLL pneumonia ?J18.9 - Pneumonia, unspecified organism (ICD-10) Acute viral syndrome ?B34.9 - Viral infection, unspecified (ICD-10) Asthma exacerbation in COPD ?J44.1 - Chronic obstructive pulmonary disease with (acute) exacerbation (ICD-10) Hypomagnesemia ?E83.42 - Hypomagnesemia (ICD-10) Acute hypokalemia ?E87.6 - Hypokalemia (ICD-10) Pneumonia ?J18.9 - Pneumonia, unspecified organism (ICD-10) Melanoma ?C43.9 - Malignant melanoma of skin, unspecified (ICD-10) Mediastinal lymphadenopathy ?R59.0 - Localized enlarged lymph nodes (ICD-10) Restrictive lung disease ?J98.4 - Other disorders of lung (ICD-10) CAD (coronary artery disease) ?I25.10 - Atherosclerotic heart disease of robinson coronary artery without angina pectoris (ICD-10) Chronic heart failure with preserved ejection fraction (HFpEF) ?I50.32 - Chronic diastolic (congestive) heart failure (ICD-10) Acute exacerbation of COPD with asthma ?J44.1 - Chronic obstructive pulmonary disease with (acute) exacerbation (ICD-10) ?J45.901 - Unspecified asthma with (acute) exacerbation (ICD-10) Lumbar radiculopathy ?M54.16 - Radiculopathy, lumbar region (ICD-10) Encounter for long-term opiate analgesic use ?Z79.891 - manager terminal (current) use of opiate analgesic (ICD-10) Failed back syndrome ?M96.1 - Postlaminectomy syndrome, not elsewhere classified (ICD-10) Acute exacerbation of chronic low back pain ?M54.50 - Low back pain, unspecified (ICD-10) ?G89.29 - Other chronic pain (ICD-10) Thoracic spondylosis ?M47.814 - Spondylosis without myelopathy or radiculopathy, thoracic region (ICD-10) Hypoxia ?R09.02 - Hypoxemia (ICD-10) URI (upper respiratory infection) ?J06.9 - Acute upper respiratory infection, unspecified (ICD-10) Orthostasis ?I95.1 - Orthostatic hypotension (ICD-10) Community acquired pneumonia ?J18.9 - Pneumonia, unspecified organism (ICD-10) Severe malnutrition ?E43 - Unspecified severe protein-calorie malnutrition (ICD-10) Acute exacerbation of chronic obstructive pulmonary disease (COPD) ?J44.1 - Chronic obstructive pulmonary disease with (acute) exacerbation (ICD-10) Severe persistent asthma with exacerbation ?J45.51 - Severe persistent asthma with (acute) exacerbation (ICD-10) Morbid obesity ?E66.01 - Morbid (severe) obesity due to excess calories (ICD-10) Other pulmonary collapse ?J98.19 - Other pulmonary collapse (ICD-10) Chronic respiratory failure with hypoxia ?J96.11 - Chronic respiratory failure with hypoxia (ICD-10) Bronchitis ?J40 - Bronchitis, not specified as acute or chronic (ICD-10) Acute exacerbation of chronic obstructive pulmonary disease ?J44.1 - Chronic obstructive pulmonary disease with (acute) exacerbation (ICD-10) Myofascial pain ?M79.18 - Myalgia, other site (ICD-10) Greater trochanteric bursitis ?M70.60 - Trochanteric bursitis, unspecified hip (ICD-10) Osteoarthritis of right hip ?M16.11 - Unilateral primary osteoarthritis, right hip (ICD-10) Lumbar spondylosis ?M47.816 - Spondylosis without myelopathy or radiculopathy, lumbar region (ICD-10) Lumbar postlaminectomy syndrome ?M96.1 - Postlaminectomy syndrome, not elsewhere classified (ICD-10) Lumbar stenosis with neurogenic claudication ?M48.062 - Spinal stenosis, lumbar region with neurogenic claudication (ICD-10) Depression ?F32.A - Depression, unspecified (ICD-10) Chronic low back pain ?M54.50 - Low back pain, unspecified (ICD-10) ?G89.29 - Other chronic pain (ICD-10) Hypoxia ?R09.02 - Hypoxemia (ICD-10) Heart murmur ?R01.1 - Cardiac murmur, unspecified (ICD-10) Chronic obstructive pulmonary disease ?J44.9 - Chronic obstructive pulmonary disease, unspecified (ICD-10) Asthma ?J45.909 - Unspecified asthma, uncomplicated (ICD-10) Surgical History H/O cataract removal with insertion of prosthetic lens ?Z98.49 - Cataract extraction status, unspecified eye (ICD-10) ?Z96.1 - Presence of intraocular lens (ICD-10) Status post hip surgery ?Z98.890 - Other specified postprocedural states (ICD-10) H/O foot surgery ?Z98.890 - Other specified postprocedural states (ICD-10) H/O tubal ligation ?Z98.51 - Tubal ligation status (ICD-10) History of lumbar fusion ?Z98.1 - Arthrodesis status (ICD-10) Family History Mother Family history of CHF (congestive heart failure) Family history of hypertension Father Family history of hypertension Family history of myocardial infarction Social History (Updated 01/08/25 @ 17:25 by Yuni Loza RN) Within the past year, how often did you have a drink containing alcohol: never Score interpretation: A score less than 3 is consistent with normal alcohol consumption. Smoking status: Never smoker Second hand tobacco smoke exposure: No Non-prescribed substance use: denies use Previous occupational history: retired Highest level of school completed/degree received: Associate degree: occupational, technical, vocational program Are you now , , , , never or living with a partner: In a typical week, how many times do you talk on the telephone with family, friends, or neighbors: 3 or more times per week How often do you get together with friends or relatives: 3 or more times per week How often do you attend baptism or muslim services: 4 or more times per year Do you belong to any clubs or organizations such as baptism groups unions, fraternal or athletic groups, or school groups: no Total score: 2 Score interpretation: A score of greater than or equal to 2 indicates the lowest level of social isolation. Little interest or pleasure in doing things: not at all Feeling down, depressed, or hopeless: not at all Feel stressed/tense/nervous/anxious/difficulty sleeping: not at all Do you think of yourself as: straight/heterosexual Gender Identity: female Meds Home Medications and Allergies Home Medications ?Medication ?Instructions ?Recorded ?Confirmed ?Type magnesium oxide 400 mg (241.3 mg 400 mg PO DAILY 04/10/23 03/10/25 History magnesium) tablet omeprazole 20 mg capsule,delayed 20 mg PO BID 04/10/23 03/10/25 History release montelukast 10 mg tablet 10 mg PO DAILY 09/14/23 03/10/25 History pregabalin 75 mg capsule 75 mg PO BID 11/25/23 03/10/25 History solifenacin 10 mg tablet 10 mg PO QDAY 11/25/23 03/10/25 History trazodone 100 mg tablet 100 mg PO .qhs 11/25/23 03/10/25 History baclofen 10 mg tablet 10 mg PO Q8H 02/03/24 03/10/25 History albuterol sulfate 2.5 mg/3 mL 2.5 mg inhalation QID PRN 06/06/24 03/10/25 History (0.083 %) solution for nebulization shortness of breath or wheezing sodium chloride 0.9 % for 2.5 ml inhalation Q8H PRN 06/28/24 03/10/25 History nebulization shortness of breath or wheezing latanoprost 0.005 % eye drops 1 drp ophthalmic (eye) .HS 08/09/24 03/10/25 History budesonide 160 mcg-glycopyr 9 2 inh inhalation Q12H 03/10/25 03/10/25 History mcg-formot 4.8 mcg/actuation HFA inhaler (Breztri Aerosphere) nystatin 100,000 unit/gram topical 1 applic topical BID 03/10/25 03/10/25 History cream paroxetine HCl 40 mg tablet 40 mg PO DAILY 03/10/25 03/10/25 History Allergies Allergy/AdvReac Type Severity Reaction Status Date / Time No Known Drug Allergies Allergy Verified 01/02/25 15:47 Exam Constitutional Vital Signs, click to edit/add: Last Vital Signs Temp 98 F 03/11/25 07:50 Pulse 76 03/11/25 09:47 Resp 24 H 03/11/25 07:50 BP 104/52 03/11/25 05:34 Pulse Ox 89 L 03/11/25 09:47 O2 Del Method Nasal Cannula 03/11/25 08:12 O2 Flow Rate 3 03/11/25 08:12 Documenting provider has reviewed patient's vital signs: yes Common normals: oriented x3 General appearance: cooperative, ill appearing and frail appearing HENHI Common normals: normocephalic and head/scalp atraumatic Head and scalp: normocephalic and atraumatic Eye Common normals: conjunctivae normal and no scleral icterus Conjunctiva: conjunctiva(e) normal Respiratory Common normals: normal respiratory effort Effort & inspection: tachypneic Other: Coarse/harsh breath sounds. Wheezing on exam. Cardio Common normals: regular rate, S1 normal heart sound and S2 normal heart sound Rate: regular rate Heart sounds: S1 normal and S2 normal GI Common normals: Normal to inspection, nondistended, normoactive bowel sounds present, soft to palpation, non-tender and no hepatosplenomegaly Palpation: soft and no hepatosplenomegaly Extremity Common normals: no clubbing, cyanosis or edema Neuro Common normals: oriented x3, moves all extremities and no focal motor deficits Psych Common normals: mental status grossly normal, denies hallucinations, denies homicidal ideation and denies suicidal ideation Results Labs Labs: Short CBC 03/10/25 03/11/25 Range/Units 16:07 05:55 WBC 18.5 H 13.7 H (4.0-11.0) 10^3/uL Hgb 11.3 L 10.8 L (12.0-16.0) g/dL Hct 35.2 L 33.5 L (36.0-48.0) % Plt Count 299 264 (150-450) 10^3/uL BMP 03/10/25 03/11/25 16:07 05:55 Sodium 139 143 Potassium 3.4 L 3.6 Chloride 102 105 Carbon Dioxide 31.1 32.7 H BUN 6.0 L 10.0 Creatinine 1.04 H 0.97 Glucose 119 H 143 H Calcium 8.2 L 8.1 L Liver Function 03/10/25 03/11/25 Range/Units 16:07 05:55 Total Bilirubin 0.4 0.3 (0.2-1.0) mg/dL AST 18 14 L (15-37) U/L ALT 14 10 L (14-59) U/L Alkaline Phosphatase 81 73 (46-116) U/L Albumin 2.3 L 2.2 L (3.4-5.0) g/dL Assessment and Plan Assessment and Plan (1) Multifocal pneumonia: Assessment and Plan: Multifocal pneumonia on CT chest. Will treat for hospital-acquired pneumonia due to recurrent hospital admissions, recent antibiotic use, recurrent steroid use for COPD/asthma exacerbations. Started patient on IV vancomycin, Zosyn. Follow-up sputum and blood cultures. Pulmonology consulted. (2) Acute and chronic respiratory failure with hypoxia: Assessment and Plan: On 3 with oxygen at baseline. Currently on 4 L of oxygen. Patient is dyspneic at rest and was unable to converse due to shortness of breath. Secondary to COPD/asthma exacerbation. Wean off oxygen as tolerated. (3) Acute exacerbation of chronic obstructive pulmonary disease (COPD): Assessment and Plan: Patient on IV Solu-Medrol, inhaled DuoNebs. Added saline nebs along with Mucinex. (4) Severe persistent asthma with exacerbation: Assessment and Plan: On IV Solu-Medrol, inhaled DuoNebs along with saline nebs (5) Chronic heart failure with preserved ejection fraction (HFpEF): Assessment and Plan: Patient appears euvolemic on clinical exam. Monitor closely as risk of volume overload with steroids (6) Chronic respiratory failure with hypoxia: Assessment and Plan: on 3 L O2 via NC at her baseline (7) Lumbar stenosis with neurogenic claudication: Assessment and Plan: Pain unchanged. On pregabalin. Continue with same. (8) Depression: Assessment and Plan: Mood is stable. Continue medications. Qualifiers: Depression Type: major depressive disorder Major depression recurrence: recurrent Active/Remission status: in full remission Qualified Code(s): F33.42 - Major depressive disorder, recurrent, in full remission
[2025-03-11] MEDS: PIPERACILLIN SODIUM/TAZOBACTAM 3.375 GM in 0.9 % SODIUM CHLORIDE 50 ML IV ×2 (12:29→21:12)
--- NOTE | 2025-03-11 14:52 | SWNOTE1 ---
SW spoke to physical therapy and they are recommending SNF. SW went back in and spoke to pt. Pt is agreeable to SNF, pt felt short of breath after working with therapy just for a short time. Pt's goal is to feel better and be able to return home with HH, but understands this may not be possible. IF she can't go home she will go to [facility] for rehab, since she is a precert, pt is agreeable for SW to reach out and send information to [facility]. Referral sent to [facility]. Referral included face sheet, ED note, H&P, provider notes, case management report, nursing notes, diagnostic imaging, med list, and PT note.
--- NOTE | 2025-03-11 15:03 | SWNOTE1 ---
SW did see in chart that pt had [facility] paperwork scanned in from November of 2024, but code status ordered was full code. SW let nurse know.
--- NOTE | 2025-03-11 15:16 | SWNOTE1 ---
SW spoke with nurse and pt is [facility]. SW printed off order and faxed to [facility].
[2025-03-11] MEDS: SODIUM CHLORIDE 3% INHALATION 15 ML NEB 3 ML IH ×2 (16:24→22:08)
--- NOTE | 2025-03-11 16:57 | PM.PLCN ---
History of Present Illness History of Present Illness Consult date: 03/11/25 Requesting physician: Shaikh Lev Reason for consult: pneumonia Chief complaint: Dyspnea Narrative: 69yo female, very well known to me, presents again to [facility] ER on 03/10/2025 with dyspnea, cough. 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 I have exhausted all options available outpatient to maintain a good pulmonary toilet. She was previously admitted to [facility] on 01/08/2025. Yesterday, symptoms worsened. In ER, HR was 96, RR 37, and WBC increased to 18.5. Imaging suggested pneumonia. She was admitted to the floor. I reviewed imaging: CT chest 03/10/[address] chest 01/10/2025 notes new RUL, RLL, and LLL infiltrates; previous RADHA infiltrate has resolved. Today, she states she is feeling a little better. Continues to have cough, dyspnea with activity. Like always, she has difficulty expectorating. Denies any fevers, chills, or sweats. Review of Systems ROS Status of ROS 10 or more systems reviewed and unremarkable except as noted in history and below [facility] Medical History (Updated 03/11/25 @ 17:04 by Corbin Lopes DO) Diet-controlled diabetes mellitus ?E11.9 - Type 2 diabetes mellitus without complications (ICD-10) Tracheobronchomalacia ?J39.8 - Other specified diseases of upper respiratory tract (ICD-10) 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 - Critical illness myopathy (ICD-10) Upper respiratory infection ?J06.9 - Acute upper respiratory infection, unspecified (ICD-10) Hypoxemia ?R09.02 - Hypoxemia (ICD-10) Acute and chronic respiratory failure ?J96.20 - Acute and chronic respiratory failure, unspecified whether with hypoxia or hypercapnia (ICD-10) Weakness ?R53.1 - Weakness (ICD-10) RLL pneumonia ?J18.9 - Pneumonia, unspecified organism (ICD-10) Acute viral syndrome ?B34.9 - Viral infection, unspecified (ICD-10) Asthma exacerbation in COPD ?J44.1 - Chronic obstructive pulmonary disease with (acute) exacerbation (ICD-10) Hypomagnesemia ?E83.42 - Hypomagnesemia (ICD-10) Acute hypokalemia ?E87.6 - Hypokalemia (ICD-10) Pneumonia ?J18.9 - Pneumonia, unspecified organism (ICD-10) Melanoma ?C43.9 - Malignant melanoma of skin, unspecified (ICD-10) Mediastinal lymphadenopathy ?R59.0 - Localized enlarged lymph nodes (ICD-10) Restrictive lung disease ?J98.4 - Other disorders of lung (ICD-10) CAD (coronary artery disease) ?I25.10 - Atherosclerotic heart disease of [place] coronary artery without angina pectoris (ICD-10) Chronic heart failure with preserved ejection fraction (HFpEF) ?I50.32 - Chronic diastolic (congestive) heart failure (ICD-10) Acute exacerbation of COPD with asthma ?J44.1 - Chronic obstructive pulmonary disease with (acute) exacerbation (ICD-10) ?J45.901 - Unspecified asthma with (acute) exacerbation (ICD-10) Lumbar radiculopathy ?M54.16 - Radiculopathy, lumbar region (ICD-10) Encounter for long-term opiate analgesic use ?Z79.891 - meterman (current) use of opiate analgesic (ICD-10) Failed back syndrome ?M96.1 - Postlaminectomy syndrome, not elsewhere classified (ICD-10) Acute exacerbation of chronic low back pain ?M54.50 - Low back pain, unspecified (ICD-10) ?G89.29 - Other chronic pain (ICD-10) Thoracic spondylosis ?M47.814 - Spondylosis without myelopathy or radiculopathy, thoracic region (ICD-10) Hypoxia ?R09.02 - Hypoxemia (ICD-10) URI (upper respiratory infection) ?J06.9 - Acute upper respiratory infection, unspecified (ICD-10) Orthostasis ?I95.1 - Orthostatic hypotension (ICD-10) Community acquired pneumonia ?J18.9 - Pneumonia, unspecified organism (ICD-10) Severe malnutrition ?E43 - Unspecified severe protein-calorie malnutrition (ICD-10) Acute exacerbation of chronic obstructive pulmonary disease (COPD) ?J44.1 - Chronic obstructive pulmonary disease with (acute) exacerbation (ICD-10) Severe persistent asthma with exacerbation ?J45.51 - Severe persistent asthma with (acute) exacerbation (ICD-10) Morbid obesity ?E66.01 - Morbid (severe) obesity due to excess calories (ICD-10) Other pulmonary collapse ?J98.19 - Other pulmonary collapse (ICD-10) Chronic respiratory failure with hypoxia ?J96.11 - Chronic respiratory failure with hypoxia (ICD-10) Bronchitis ?J40 - Bronchitis, not specified as acute or chronic (ICD-10) Acute exacerbation of chronic obstructive pulmonary disease ?J44.1 - Chronic obstructive pulmonary disease with (acute) exacerbation (ICD-10) Myofascial pain ?M79.18 - Myalgia, other site (ICD-10) Greater trochanteric bursitis ?M70.60 - Trochanteric bursitis, unspecified hip (ICD-10) Osteoarthritis of right hip ?M16.11 - Unilateral primary osteoarthritis, right hip (ICD-10) Lumbar spondylosis ?M47.816 - Spondylosis without myelopathy or radiculopathy, lumbar region (ICD-10) Lumbar postlaminectomy syndrome ?M96.1 - Postlaminectomy syndrome, not elsewhere classified (ICD-10) Lumbar stenosis with neurogenic claudication ?M48.062 - Spinal stenosis, lumbar region with neurogenic claudication (ICD-10) Depression ?F32.A - Depression, unspecified (ICD-10) Chronic low back pain ?M54.50 - Low back pain, unspecified (ICD-10) ?G89.29 - Other chronic pain (ICD-10) Hypoxia ?R09.02 - Hypoxemia (ICD-10) Heart murmur ?R01.1 - Cardiac murmur, unspecified (ICD-10) Chronic obstructive pulmonary disease ?J44.9 - Chronic obstructive pulmonary disease, unspecified (ICD-10) Asthma ?J45.909 - Unspecified asthma, uncomplicated (ICD-10) Surgical History H/O cataract removal with insertion of prosthetic lens ?Z98.49 - Cataract extraction status, unspecified eye (ICD-10) ?Z96.1 - Presence of intraocular lens (ICD-10) Status post hip surgery ?Z98.890 - Other specified postprocedural states (ICD-10) H/O foot surgery ?Z98.890 - Other specified postprocedural states (ICD-10) H/O tubal ligation ?Z98.51 - Tubal ligation status (ICD-10) History of lumbar fusion ?Z98.1 - Arthrodesis status (ICD-10) Family History Mother Family history of CHF (congestive heart failure) Family history of hypertension Father Family history of hypertension Family history of myocardial infarction Social History (Updated 01/08/25 @ 17:25 by Yuni Loza RN) Within the past year, how often did you have a drink containing alcohol: never Score interpretation: A score less than 3 is consistent with normal alcohol consumption. Smoking status: Never smoker Second hand tobacco smoke exposure: No Non-prescribed substance use: denies use Previous occupational history: retired Highest level of school completed/degree received: Associate degree: occupational, technical, vocational program Are you now , , , , never or living with a partner: In a typical week, how many times do you talk on the telephone with family, friends, or neighbors: 3 or more times per week How often do you get together with friends or relatives: 3 or more times per week How often do you attend yarsanism or islam services: 4 or more times per year Do you belong to any clubs or organizations such as yarsanism groups unions, [employer] or athletic groups, or school groups: no Total score: 2 Score interpretation: A score of greater than or equal to 2 indicates the lowest level of social isolation. Little interest or pleasure in doing things: not at all Feeling down, depressed, or hopeless: not at all Feel stressed/tense/nervous/anxious/difficulty sleeping: not at all Do you think of yourself as: straight/heterosexual Gender Identity: female Meds Home Medications and Allergies Home Medications ?Medication ?Instructions ?Recorded ?Confirmed ?Type magnesium oxide 400 mg (241.3 mg 400 mg PO DAILY 04/10/23 03/10/25 History magnesium) tablet omeprazole 20 mg capsule,delayed 20 mg PO BID 04/10/23 03/10/25 History release montelukast 10 mg tablet 10 mg PO DAILY 09/14/23 03/10/25 History pregabalin 75 mg capsule 75 mg PO BID 11/25/23 03/10/25 History solifenacin 10 mg tablet 10 mg PO QDAY 11/25/23 03/10/25 History trazodone 100 mg tablet 100 mg PO .qhs 11/25/23 03/10/25 History baclofen 10 mg tablet 10 mg PO Q8H 02/03/24 03/10/25 History albuterol sulfate 2.5 mg/3 mL 2.5 mg inhalation QID PRN 06/06/24 03/10/25 History (0.083 %) solution for nebulization shortness of breath or wheezing sodium chloride 0.9 % for 2.5 ml inhalation Q8H PRN 06/28/24 03/10/25 History nebulization shortness of breath or wheezing latanoprost 0.005 % eye drops 1 drp ophthalmic (eye) .HS 08/09/24 03/10/25 History budesonide 160 mcg-glycopyr 9 2 inh inhalation Q12H 03/10/25 03/10/25 History mcg-formot 4.8 mcg/actuation HFA inhaler (Breztri Aerosphere) nystatin 100,000 unit/gram topical 1 applic topical BID 03/10/25 03/10/25 History cream paroxetine HCl 40 mg tablet 40 mg PO DAILY 03/10/25 03/10/25 History Allergies Allergy/AdvReac Type Severity Reaction Status Date / Time No Known Drug Allergies Allergy Verified 01/02/25 15:47 Exam Narrative Exam Narrative: -General: Sitting in chair, having neb treatment. Appears chronically ill -ENT: No oral candidiasis. Wearing NC. -Chest: Normal movements. No significantly palpable rhonchi. -Lungs: Diminished breath sounds. Scattered crackles, sparing RADHA some compared to remainder of lungs. Faint expiratory wheezes. Much better than last admission. -CV: RRR -Abdomen: Increased central adiposity -Extremities: ~1+ BLE pitting edema -Neuro: No fasciculations. Overall mild weakness, but able to sit up on own. -Psych: Appropriate affect Constitutional Vital Signs, click to edit/add: Last Vital Signs Temp 98.4 F 03/11/25 15:52 Pulse 70 03/11/25 16:26 Resp 16 03/11/25 16:26 BP 113/71 03/11/25 15:52 Pulse Ox 94 L 03/11/25 16:26 O2 Del Method Nasal Cannula 03/11/25 16:26 O2 Flow Rate 3.5 03/11/25 16:26 Results Laboratory Findings Abnormal lab findings: Abnormal Labs 03/10/25 03/11/25 03/11/25 16:07 05:55 11:21 WBC 18.5 H 13.7 H RBC 3.56 L 3.40 L Hgb 11.3 L 10.8 L Hct 35.2 L 33.5 L MPV 9.1 L 9.3 L Neut % (Auto) 82.2 H 88.5 H Lymph % (Auto) 9.4 L 8.8 L Eos % (Auto) 0.5 L 0.0 L Baso % (Auto) 0.1 L Neut # (Auto) 15.2 H 12.1 H [place] # (Auto) 1.2 H Abs Immat Gran (auto) 0.16 H 0.08 H Imm/Tot Granulo (auto) 0.9 H 0.6 H Potassium 3.4 L Carbon Dioxide 32.7 H BUN 6.0 L Creatinine 1.04 H Est GFR (Non-Af Amer) 53 L 57 L Glucose 119 H 143 H Calcium 8.2 L 8.1 L AST 14 L ALT 10 L NT-Pro-B Natriuret Pep 1176.0 H Albumin 2.3 L 2.2 L POC Glucose 178 H Assessment and Plan Assessment and Plan (1) HCAP (healthcare-associated pneumonia): Assessment and Plan: 1. HCAP. Present on admission. New infiltrates in RUL, RLL, and LLL on CT chest 03/10/2025 compared to 01/10/2025, with resolution of RADHA from that admission. Contribution from critical illness myopathy & dynamic airway collapse/tracheobronchomalacia with difficulty expectorating. Continue current antibiotic therapy. Patient contracts oral candidiasis very easily - will start prophylactic nystatin swish and swallow. Awaiting C&S. 2. Sepsis secondary to HCAP. Leukocytosis (WBC 18.7), tachypnea (RR 37), and tachycardia (HR 96) on admission. Overall appears to be improving - WBC has decreased. 3. AECOPD. Patient was [facility] with me - she was doing much better on this as it requires less NIF compared to dry powder inhalers.. May use nebulized DuoNeb + Pulmicort for now and transition back to Breztri at discharge. 4. 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 Continue aggressive pulmonary toilet. Home regimen includes NIV + Vest + IPV + PEP. 5. Chronic hypoxic respiratory failure. Not requiring higher flows unlike last visit where she needed Vapotherm. 6. Acquired tracheobronchomalacia. Secondary to critical illness myopathy from COVID-19. Continue NIV. 7. Morbid obesity. BMI 40.8. Inducing restrictive pulmonary physiology. Weight loss recommended.
[2025-03-11] MEDS: NYSTATIN 500,000 UNIT/5 ML ORAL.SUSP 500000 UNIT PO ×2 (17:35→21:12)
[2025-03-11] MEDS: LATANOPROST 0.005% 2.5 ML BOTTLE 1 DROP OP (21:11)
[2025-03-11] MEDS: TRAZODONE HCL 50 MG TABLET 100 MG PO (21:12)
[2025-03-11] MEDS: BUDESONIDE 0.5 MG/2 ML AMPULE NEB IH (22:08)
[2025-03-11] MEDS: ZINC OXIDE 30% CREAM 113.4 GM TUBE 1 APPLIC TOPICAL (22:30)
[2025-03-11] MEDS: PRAMIPEXOLE 0.125 MG TABLET 0.25 MG PO (23:45)
[2025-03-12] VITALS (23 sets, daily range): BP systolic 119–178; BP diastolic 70–86; PULSE 70–90; TEMP 36.5–37; O2SAT 91–97
[2025-03-12] MEDS: VANCOMYCIN HCL 1,000 MG in 0.9 % SODIUM CHLORIDE 250 ML 250 MG IV ×3 (00:02→23:20)
[2025-03-12] MEDS: METHYLPREDNISOLONE SOD SUCC PF 40 MG/ML VIAL IVP ×3 (03:38→20:54)
[2025-03-12] MEDS: IPRATROPIUM/ALBUTEROL SULFATE 3 ML AMPUL.NEB IH ×4 (04:13→22:03)
[2025-03-12] MEDS: SODIUM CHLORIDE 3% INHALATION 15 ML NEB 3 ML IH ×4 (04:13→22:03)
[2025-03-12] MEDS: PIPERACILLIN SODIUM/TAZOBACTAM 3.375 GM in 0.9 % SODIUM CHLORIDE 50 ML IV ×3 (04:29→21:05)
[2025-03-12] MEDS: BACLOFEN 10 MG TABLET PO ×3 (06:08→21:16)
[2025-03-12] MEDS: PANTOPRAZOLE SODIUM 40 MG TABLET.DR PO (06:08)
[2025-03-12] MEDS: NYSTATIN 500,000 UNIT/5 ML ORAL.SUSP 500000 UNIT PO ×4 (06:09→21:24)
[2025-03-12 06:27] LABS: Hematocrit 31.7 % (36.0-48.0); Hemoglobin 10.2 g/dL (12.0-16.0); Immature Granulocytes Abs Auto 0.07 10^3/uL (0.00-0.03); Immature Granulocytes Pct Auto 0.6 % (0.0-0.5); Lymphocytes Absolute Auto 0.5 10^3/uL (1.2-3.8); Lymphocytes Percent Auto 3.9 % (20.5-60.0); Mean Corpuscular HGB Conc 32.2 g/dL (29.9-35.2); Mean Corpuscular Hemoglobin 32.2 pg (26.7-34.0); Mean Platelet Volume 9.7 fL (9.5-13.5); Monocytes Absolute Auto 0.4 10^3/uL (0.3-0.8); Monocytes Percent Auto 2.9 % (1.7-12.0); Neutrophils Absolute Auto 11.5 10^3/uL (1.4-6.5); Neutrophils Percent Auto 92.6 % (43.0-75.0); Platelet Count 259 10^3/uL (150-450); Red Blood Count 3.17 10^6/uL (4.20-5.40); Red Cell Distribution Width 13.4 % (11.0-15.0); White Blood Count 12.4 10^3/uL (4.0-11.0)
[2025-03-12 06:43] LABS: Alanine Aminotransferase 15 U/L (14-59); Albumin Globulin Ratio 0.5; Albumin Level 2.2 g/dL (3.4-5.0); Alkaline Phosphatase 76 U/L (46-116); Anion Gap 9.5; Aspartate Amino Transferase 13 U/L (15-37); BUN Creatinine Ratio 18.3; Bilirubin Total 0.2 mg/dL (0.2-1.0); Calcium 8.2 mg/dL (8.5-10.1); Carbon Dioxide 32.1 mmol/L (21.0-32.0); Chloride 101 mmol/L (98-107); Estimated GFR (African America >60 (>=60 mL/min/1.73m^2); Estimated GFR (Non-African Ame 50 (>=60 mL/min/1.73m^2); Globulin 4.4 g/dL; Glucose 207 mg/dL (74-106); Magnesium 1.9 mg/dL (1.8-2.4); Potassium 3.6 mmol/L (3.5-5.1); Sodium 139 mmol/L (136-145); Total Protein 6.6 g/dL (6.4-8.2)
--- NOTE | 2025-03-12 07:49 | P.PLPN_ITS ---
Progress Note: A&P Assessment and Plan (1) HCAP (healthcare-associated pneumonia): Assessment and Plan: 1. HCAP. Awaiting C&S - appears to be responding to current antibiotics. Tailor antibiotics according to C&S. If Pseudomonas is cultured again with same resistance pattern as in January, this suggests colonization - I will need to look into prophylactic therapy outpatient (e.g. Nuno), which may be difficult to qualify for given she does not have bronchiectasis. Given her history of recu rrent oral candidiasis while on antibiotics + systemic steroids, continue with prophylactic nystatin. 2. Sepsis secondary to HCAP. Clinically improving. Slight increase in WBC today, but that is consistent with current systemic steroid therapy. 3. AECOPD. No wheezes today. Mild diffuse moist rhonchi - she has sounded much worse in the past. Continue DuoNeb + Pulmicort, return to [facility] at discharge. 4. Critical illness myopathy. Continue pulmonary toilet. 5. Chronic hypoxic respiratory failure. O2 flows have been okay this admission - has not required Vapotherm. 6. Acquired tracheobronchomalacia. Continue NIV. 7. Morbid obesity. Weight loss recommended. Plan She was previously scheduled to have F/U outpatient visit with me on 04/02/2025 @ 10:30. She may keep this appointment - no need to move it up sooner at this time. Subjective Subjective Interval history: Patient states she is feeling a little better than on admission. Still has cough, difficulty expectorating despite pulmonary toilet. Continues to express weakness, fatigue. Denies fevers, chills, sweats. Reviewed with patient that I personally reviewed her recent CT chest compared to prior from January - RADHA infiltrate resolved but now has new RUL, RLL, and LLL in filtrates. Prior sputum culture was Pseudomonas + ; current cultures are pending. Exam Narrative Exam Narrative: -General: Laying in bed - does not appear septic -ENT: Wearing NC. Mucous membranes moist and clear. -Chest: Normal movements. No respiratory distress. -Lungs: Diminished breath sounds. Mild moist rhonchi throughout lung [place] - patient has been much worse in the past. No expiratory wheezes. -CV: RRR -Abdomen: Increased central adiposity -Extremities: ~1+ BLE pitting edema -Neuro: No fasciculations. Can sit up in bed under own strength. -Psych: A&O x3. Pleasant Constitutional Vital Signs, click to edit/add: Last Vital Signs Temp 98.6 F 03/12/25 07:45 Pulse 78 03/12/25 07:45 Resp 22 H 03/12/25 07:45 BP 135/80 03/12/25 07:45 Pulse Ox 93 L 03/12/25 07:45 O2 Del Method Nasal Cannula 03/12/25 07:45 O2 Flow Rate 4 03/12/25 04:12
[2025-03-12] MEDS: PREGABALIN 75 MG CAPSULE PO ×2 (08:46→20:54)
[2025-03-12] MEDS: PAROXETINE HCL 20 MG TABLET 40 MG PO (08:46)
[2025-03-12] MEDS: NYSTATIN 100,000 UNITS/GRAM CREAM 15 GM TUBE 1 APPLIC TOPICAL ×2 (08:47→20:55)
--- NOTE | 2025-03-12 08:50 | PT.DAILY ---
Physical Therapy Daily Note PT Daily Note/Assess Start: 03/11/25 14:27 Freq: Status: Active Protocol: Document 03/12/25 08:15 MICHEL (Rec: 03/12/25 08:50 [id number]) Physical Therapy Daily Note/Assessment Time In/Time Out Time In 08:16 Time Out 08:30 Subjective Subjective Patient reports that she is feeling better today. Therapeutic Exercise Time Therapeutic Exercise 5 Minutes (minutes) Therapeutic Exercise 0 Units Therapeutic Exercise Treatment Therapeutic Exercise Seated Exercises: Treatment Marches x 10 LAQ x 10 HR/ TR x 10 Hip abd x 10 Hip add squeezes x 10 Therapeutic Activity Time Therapeutic Activity 9 Minutes (minutes) Therapeutic Activity 1 Units Therapeutic Activity Treatment Bed Mobility Ability Independent Chair Transfer Contact Guard Assist,Minimum Assist Ability Therapeutic Activity Patient completes bed mobility, supine to sit Comments Independent. Patient completes sit to stand transfer from EOB to RW CGA/ MIN A, then takes 2-3 steps to bedside commode SBA. O2 measured at 94% after transfer to commode. Patient completes sit to stand from commode to RW MIN A/ CGA and is able to pull brief up SBA while standing. Several steps were taken requiring several turns in order to manage O2 line to sit in chair. O2 measured at 86 after transfer to chair, but patient recovers to 94% after short seated rest break. Total Physical Therapy Time Total Therapy 14 Minutes Total Physical 1 Therapy Units Summary Daily Note Summary Patient demonstrates improved bed mobility today, requiring less assistance for supine to sit transfer. Patient is then able to complete several steps SBA and sit <> stand transfers CGA/ MIN A from commode and bed. Patient is able to pull brief up Independent without UE support SBA. O2 measured at 94% and drops to 86% after commode transfer and ambulation but returns to 94 % after short seated RB. Patient in chair with call light in reach and all needs met post treatment. Recommend SNF at [place] to continue to improve endurance in order to return to PLOF.
--- NOTE | 2025-03-12 10:09 | SWNOTE1 ---
[facility] is able to accept and they started precert on 03/11/25.
--- NOTE | 2025-03-12 10:12 | SWNOTE1 ---
SW faxed over PT note from today, pulmonology consult and progress note, labs, vitals, and nursing notes to [facility].
--- NOTE | 2025-03-12 10:30 | CM.NOTE ---
Rounds made with Dr. Ohara, no discharge today. Pt continues to have increased dyspnea with minimal activity and continued weakness.
--- NOTE | 2025-03-12 10:50 | PM.IMPN1 ---
Progress Note: A&P Assessment and Plan (1) HCAP (healthcare-associated pneumonia): (2) Multifocal pneumonia: (3) Acute exacerbation of chronic obstructive pulmonary disease: (4) Asthma with acute exacerbation: Qualifiers: Asthma severity: severe Asthma persistence: persistent Qualified Code(s): J45.51 - Severe persistent asthma with (acute) exacerbation (5) Chronic heart failure with preserved ejection fraction (HFpEF): (6) Respiratory failure with hypoxia: Qualifiers: Chronicity: acute Qualified Code(s): J96.01 - Acute respiratory failure with hypoxia Plan Patient admitted for generalized weakness, COPD/asthma exacerbation likely secondary to multifocal pneumonia as seen on CT chest. Being treated as hospital-acquired pneumonia due to recent antibiotic use, hospital admission, chronic lung disease and recurrent steroid use. Currently on IV vancomycin and IV Zosyn. Cultures are negative so far. On IV steroids, DuoNebs along with saline nebs/guaifenesin to help with mucus secretions/mucous plugging. Pulmonology on board. Continue with current course of treatment. Monitor volume status closely as she is prone to fluid overload while on steroids. Patient is still short of breath at rest. PT/OT evaluation for generalized weakness. Anticipate needing rehab once medically cleared for discharge. Internal Medicine - PN: Subj Subjective Interval history: Seen and examined. Still feeling weak and tired. Appears SOB at rest. No sig improvement. No overnight events Exam Constitutional Vital Signs, click to edit/add: Last Vital Signs Temp 98.6 F 03/12/25 07:45 Pulse 81 03/12/25 09:59 Resp 22 H 03/12/25 08:20 BP 135/80 03/12/25 07:45 Pulse Ox 96 03/12/25 09:59 O2 Del Method Nasal Cannula 03/12/25 07:45 O2 Flow Rate 4 03/12/25 04:12 Documenting provider has reviewed patient's vital signs: yes Common normals: oriented x3 General appearance: cooperative, ill appearing and frail appearing Respiratory Common normals: normal respiratory effort Effort & inspection: tachypneic Other: Coarse/harsh breath sounds. Wheezing on exam. Conversational dyspnea noted Cardio Common normals: regular rate, S1 normal heart sound and S2 normal heart sound Rate: regular rate Heart sounds: S1 normal and S2 normal Extremity Common normals: no clubbing, cyanosis or edema Neuro Common normals: oriented x3, moves all extremities and no focal motor deficits Psych Common normals: mental status grossly normal, denies hallucinations, denies homicidal ideation and denies suicidal ideation Internal Medicine - PN: Obj Da Labs Labs: Laboratory Results - last 24 hr 03/11/25 03/12/25 11:21 05:45 WBC 12.4 H RBC 3.17 L Hgb 10.2 L Hct 31.7 L MCV 100.0 H MCH 32.2 MCHC 32.2 RDW 13.4 Plt Count 259 MPV 9.7 Neut % (Auto) 92.6 H Lymph % (Auto) 3.9 L [place] % (Auto) 2.9 Eos % (Auto) 0.0 L Baso % (Auto) 0.0 L Neut # (Auto) 11.5 H Lymph # (Auto) 0.5 L [place] # (Auto) 0.4 Eos # (Auto) 0.0 Baso # (Auto) 0.0 Abs Immat Gran (auto) 0.07 H Imm/Tot Granulo (auto) 0.6 H Sodium 139 Potassium 3.6 Chloride 101 Carbon Dioxide 32.1 H Anion Gap 9.5 BUN 20.0 H Creatinine 1.09 H Est GFR ( Amer) >60 Est GFR (Non-Af Amer) 50 L BUN/Creatinine Ratio 18.3 Glucose 207 H Calcium 8.2 L Magnesium 1.9 Total Bilirubin 0.2 AST 13 L ALT 15 Alkaline Phosphatase 76 Total Protein 6.6 Albumin 2.2 L Globulin 4.4 Albumin/Globulin Ratio 0.5 POC Glucose 178 H
[2025-03-12] MEDS: BUDESONIDE 0.5 MG/2 ML AMPULE NEB IH ×2 (11:00→22:03)
[2025-03-12] MEDS: GUAIFENESIN 600 MG TAB.ER.12H PO ×2 (11:51→23:20)
[2025-03-12] MEDS: 0.9 % SODIUM CHLORIDE 250 ML 10 ML IV (11:51)
--- NOTE | 2025-03-12 13:18 | SWNOTE1 ---
SW faxed OT note to [facility] as well. Precert is still pending.
--- NOTE | 2025-03-12 14:13 | SWNOTE1 ---
[facility] had a voicemail from pt's daughter, Kaylene in regards to discharge plans. She works at [facility] in [place] and would like her to go there. SW to speak with pt. SW stopped in and spoke to pt. SW advised her that Kaylene called and wants her to go to [facility]. SW let her know that SW would have to speak with doctor. SW also let her know that we would have to cancel precert to [facility] and start everything over at [facility]. SW let her know this could prolong her hospital stay. Pt decided she wants to stick with the [facility]. JAZMIN asked if SW needs to call her daughter Kaylene back? Pt stated she will call.
[2025-03-12] MEDS: ACETAMINOPHEN 325 MG TABLET 650 MG PO (15:48)
[2025-03-12] MEDS: ENOXAPARIN SODIUM 40 MG/0.4 ML SYRINGE SUBQ (21:11)
[2025-03-12] MEDS: TRAZODONE HCL 50 MG TABLET 100 MG PO (21:11)
[2025-03-12] MEDS: PRAMIPEXOLE 0.125 MG TABLET 0.25 MG PO (21:12)
[2025-03-12] MEDS: LATANOPROST 0.005% 2.5 ML BOTTLE 1 DROP OP (21:14)
[2025-03-13] VITALS (21 sets, daily range): BP systolic 129–156; BP diastolic 58–82; PULSE 65–85; TEMP 36.4–36.8; O2SAT 93–97
[2025-03-13] MEDS: SODIUM CHLORIDE 3% INHALATION 15 ML NEB 3 ML IH ×4 (04:44→22:09)
[2025-03-13] MEDS: IPRATROPIUM/ALBUTEROL SULFATE 3 ML AMPUL.NEB IH ×4 (04:44→22:09)
[2025-03-13] MEDS: PIPERACILLIN SODIUM/TAZOBACTAM 3.375 GM in 0.9 % SODIUM CHLORIDE 50 ML IV ×3 (05:12→21:54)
[2025-03-13] MEDS: METHYLPREDNISOLONE SOD SUCC PF 40 MG/ML VIAL IVP ×3 (05:12→21:49)
[2025-03-13] MEDS: BACLOFEN 10 MG TABLET PO ×3 (05:25→21:50)
[2025-03-13] MEDS: NYSTATIN 500,000 UNIT/5 ML ORAL.SUSP 500000 UNIT PO ×4 (05:26→21:50)
[2025-03-13] MEDS: PANTOPRAZOLE SODIUM 40 MG TABLET.DR PO (05:27)
[2025-03-13 05:41] LABS: Basophils Percent Auto 0.1 % (0.2-2.0); Hematocrit 32.4 % (36.0-48.0); Hemoglobin 10.2 g/dL (12.0-16.0); Immature Granulocytes Abs Auto 0.09 10^3/uL (0.00-0.03); Lymphocytes Absolute Auto 0.8 10^3/uL (1.2-3.8); Lymphocytes Percent Auto 8.5 % (20.5-60.0); Mean Corpuscular HGB Conc 31.5 g/dL (29.9-35.2); Mean Corpuscular Hemoglobin 31.6 pg (26.7-34.0); Mean Corpuscular Volume 100.3 fL (81.0-99.0); Mean Platelet Volume 9.6 fL (9.5-13.5); Monocytes Absolute Auto 0.4 10^3/uL (0.3-0.8); Monocytes Percent Auto 4.5 % (1.7-12.0); Neutrophils Absolute Auto 7.7 10^3/uL (1.4-6.5); Neutrophils Percent Auto 85.9 % (43.0-75.0); Platelet Count 263 10^3/uL (150-450); Red Blood Count 3.23 10^6/uL (4.20-5.40); Red Cell Distribution Width 13.1 % (11.0-15.0); White Blood Count 8.9 10^3/uL (4.0-11.0)
[2025-03-13 06:00] LABS: Alanine Aminotransferase 14 U/L (14-59); Albumin Globulin Ratio 0.5; Albumin Level 2.2 g/dL (3.4-5.0); Alkaline Phosphatase 74 U/L (46-116); Anion Gap 10.2; Aspartate Amino Transferase 16 U/L (15-37); BUN Creatinine Ratio 18.8; Bilirubin Total 0.2 mg/dL (0.2-1.0); Calcium 8.4 mg/dL (8.5-10.1); Carbon Dioxide 28.9 mmol/L (21.0-32.0); Chloride 102 mmol/L (98-107); Estimated GFR (African America >60 (>=60 mL/min/1.73m^2); Estimated GFR (Non-African Ame 58 (>=60 mL/min/1.73m^2); Globulin 4.3 g/dL; Glucose 256 mg/dL (74-106); Potassium 4.1 mmol/L (3.5-5.1); Sodium 137 mmol/L (136-145); Total Protein 6.5 g/dL (6.4-8.2)
[2025-03-13] MEDS: PREGABALIN 75 MG CAPSULE PO ×2 (09:46→21:50)
[2025-03-13] MEDS: PAROXETINE HCL 20 MG TABLET 40 MG PO (09:46)
[2025-03-13] MEDS: NYSTATIN 100,000 UNITS/GRAM CREAM 15 GM TUBE 1 APPLIC TOPICAL ×2 (09:50→21:54)
[2025-03-13] MEDS: INSULIN GLARGINE 300 UNIT/3 ML INSULN.PEN 15 UNIT SQ (09:50)
--- NOTE | 2025-03-13 09:59 | CM.NOTE ---
Rounds made with Dr. Ohara, no discharge today. Pt will discharge to [facility] when medically stable.
--- NOTE | 2025-03-13 10:14 | P.IMPN_ITS ---
Progress Note: A&P Assessment and Plan (1) HCAP (healthcare-associated pneumonia): (2) Multifocal pneumonia: (3) Acute exacerbation of chronic obstructive pulmonary disease: (4) Asthma with acute exacerbation: Qualifiers: Asthma severity: severe Asthma persistence: persistent Qualified Code(s): J45.51 - Severe persistent asthma with (acute) exacerbation (5) Chronic heart failure with preserved ejection fraction (HFpEF): (6) Respiratory failure with hypoxia: Qualifiers: Chronicity: acute Qualified Code(s): J96.01 - Acute respiratory failure with hypoxia Plan Patient admitted for generalized weakness, COPD/asthma exacerbation secondary to multifocal pneumonia as seen on CT chest. Being treated as hospital-acquired pneumonia due to recent antibiotic use, hospital admission, chronic lung disease and recurrent steroid use. Currently on IV vancomycin and IV Zosyn. Cultures are negative so far. On IV steroids, DuoNebs along with saline nebs/guaifenesin to help with mucus secretions/mucous plugging. Pulmonology on board. Blood glucose poorly controlled likely secondary to steroids. Started on Lantus. Appears slightly fluid overloaded and will give one-time dose of IV Lasix. Continue with current course of treatment. Monitor volume status closely as she is prone to fluid overload while on steroids diurese as needed. Patient is still short of breath at rest. PT/OT evaluation for generalized weakness. Anticipate needing rehab once medically cleared for discharge. Internal Medicine - PN: Subj Subjective Interval history: Seen and examined. Again improvement. No overnight events. Still dyspneic at rest Exam Constitutional Vital Signs, click to edit/add: Last Vital Signs Temp 98.0 F 03/13/25 07:50 Pulse 76 03/13/25 09:52 Resp 20 03/13/25 07:50 BP 156/74 H 03/13/25 07:50 Pulse Ox 97 03/13/25 09:52 O2 Del Method Nasal Cannula 03/13/25 07:50 O2 Flow Rate 3 03/13/25 07:50 Documenting provider has reviewed patient's vital signs: yes Common normals: oriented x3 General appearance: cooperative, ill appearing and frail appearing Respiratory Common normals: normal respiratory effort Effort & inspection: tachypneic Other: Coarse/harsh breath sounds. Wheezing on exam. Conversational dyspnea noted Cardio Common normals: regular rate, S1 normal heart sound and S2 normal heart sound Rate: regular rate Heart sounds: S1 normal and S2 normal Extremity Common normals: no clubbing, cyanosis or edema Neuro Common normals: oriented x3, moves all extremities and no focal motor deficits Psych Common normals: mental status grossly normal, denies hallucinations, denies homicidal ideation and denies suicidal ideation Internal Medicine - PN: Obj Da Labs Labs: Laboratory Results - last 24 hr 03/13/25 05:24 WBC 8.9 RBC 3.23 L Hgb 10.2 L Hct 32.4 L MCV 100.3 H MCH 31.6 MCHC 31.5 RDW 13.1 Plt Count 263 MPV 9.6 Neut % (Auto) 85.9 H Lymph % (Auto) 8.5 L [place] % (Auto) 4.5 Eos % (Auto) 0.0 L Baso % (Auto) 0.1 L Neut # (Auto) 7.7 H Lymph # (Auto) 0.8 L [place] # (Auto) 0.4 Eos # (Auto) 0.0 Baso # (Auto) 0.0 Abs Immat Gran (auto) 0.09 H Imm/Tot Granulo (auto) 1.0 H Sodium 137 Potassium 4.1 Chloride 102 Carbon Dioxide 28.9 Anion Gap 10.2 BUN 18.0 Creatinine 0.96 Est GFR ( Amer) >60 Est GFR (Non-Af Amer) 58 L BUN/Creatinine Ratio 18.8 Glucose 256 H Calcium 8.4 L Magnesium 2.0 Total Bilirubin 0.2 AST 16 ALT 14 Alkaline Phosphatase 74 Total Protein 6.5 Albumin 2.2 L Globulin 4.3 Albumin/Globulin Ratio 0.5
--- NOTE | 2025-03-13 10:34 | PT.DAILY ---
Physical Therapy Daily Note PT Daily Note/Assess Start: 03/11/25 14:27 Freq: Status: Active Protocol: Document 03/13/25 10:10 MICHEL (Rec: 03/13/25 10:34 MICHEL [id number]) Physical Therapy Daily Note/Assessment Time In/Time Out Time In 10:11 Time Out 10:22 Subjective Subjective Patient reports she is still feeling about the same as yesterday and is tired. Therapeutic Exercise Time Therapeutic Exercise 3 Minutes (minutes) Therapeutic Exercise 0 Units Therapeutic Exercise Treatment Therapeutic Exercise Seated Exercises: Treatment Marches x 10 LAQ x 10 HR/ TR x 10 Hip abd x 10 Hip add squeezes x 10 Therapeutic Activity Time Therapeutic Activity 8 Minutes (minutes) Therapeutic Activity 1 Units Therapeutic Activity Treatment Chair Transfer Standby Assistance Ability Therapeutic Activity Patient ambulates 16 feet x 2 with RW CGA and Comments assistance for O2 line required. 1-2 minute seated rest break required in between ambulation trials with patient demonstrating SOB, O2 checked at 92%. O2 after second trial checked at 93% and patient reports less SOB after second trial with ambulation. Total Physical Therapy Time Total Therapy 11 Minutes Total Physical 1 Therapy Units Summary Daily Note Summary Patient demonstrates improved distance with ambulation today to 16 feet x 2 with RW and CGA, assistance for O2 line required. Patient demonstrates SOB during ambulation and requires 1-2 minute seated RB in between trials. Oxygen checked throughout treatment and remained at 92-93% throughout. Patient recovers from SOB quickly after taking deep breaths. Patient in chair with call light in reach and all needs met post treatment. Continue to recommend SNF at [place] to improve endurance in order to return to PLOF.
[2025-03-13] MEDS: BUDESONIDE 0.5 MG/2 ML AMPULE NEB IH ×2 (10:53→22:09)
[2025-03-13] MEDS: GUAIFENESIN 600 MG TAB.ER.12H PO ×2 (11:51→21:50)
[2025-03-13] MEDS: FUROSEMIDE 40 MG/4 ML VIAL IVP (11:51)
[2025-03-13 12:45] LABS: Vancomycin Trough 14.1 ug/mL (5.0-20.0)
[2025-03-13] MEDS: VANCOMYCIN HCL 1,000 MG in 0.9 % SODIUM CHLORIDE 250 ML 250 MG IV (13:18)
--- NOTE | 2025-03-13 15:15 | SWNOTE1 ---
JAZMIN faxed updated physician notes, PT note, labs, vitals, nursing notes and med list to Silvana [facility] [place] for precert.
--- NOTE | 2025-03-13 15:19 | OT.DAILY ---
Occupational Therapy Daily Note OT Inpatient Daily Visit Note Start: 03/12/25 10:27 Freq: Status: Active Protocol: Document 03/13/25 15:12 [id number] (Rec: 03/13/25 15:19 [id number]) OT Visit Details Time In/Time Out Time In 14:55 Time Out 15:10 OT Treatment Plan Subjective Subjective Pt AAOx4, sitting in chair. Maintaining O2 NC. Able to speak in full sentences with minimal SOB. Objective Objective Stand-pivot transfer to bedside commode. Min A doffing LB garments. Successful voiding and BM. Mod A rodríguez-care for LOB with dynamic UB movement. Good standing balance inside walker. Mod A donning LB garments for SOB and LOB. Pt reports BLE fatigue. Stand-pivot to recliner chair, CGA for LOB. Good safety techniques with walker during transfers. Assessment Assessment Tolerated treatment well. SOB exacerbated with exertion , 30-60 sec to regulate breathing pattern. Continue OT POC. OT Sheet Rock Applicator Timed Codes [facility] 15 Management minutes ( minutes) [facility] 1 Management units
[2025-03-13] MEDS: PRAMIPEXOLE 0.125 MG TABLET 0.25 MG PO (21:49)
[2025-03-13] MEDS: LATANOPROST 0.005% 2.5 ML BOTTLE 1 DROP OP (21:50)
[2025-03-13] MEDS: TRAZODONE HCL 50 MG TABLET 100 MG PO (21:50)
[2025-03-13] MEDS: ENOXAPARIN SODIUM 40 MG/0.4 ML SYRINGE SUBQ (21:54)
[2025-03-14] VITALS (20 sets, daily range): BP systolic 125–164; BP diastolic 60–91; PULSE 61–88; TEMP 36.3–36.8; O2SAT 92–98
[2025-03-14] MEDS: VANCOMYCIN HCL 1,000 MG in 0.9 % SODIUM CHLORIDE 250 ML 250 MG IV (02:02)
[2025-03-14] MEDS: SODIUM CHLORIDE 3% INHALATION 15 ML NEB 3 ML IH ×4 (04:31→22:03)
[2025-03-14] MEDS: IPRATROPIUM/ALBUTEROL SULFATE 3 ML AMPUL.NEB IH ×4 (04:31→22:04)
[2025-03-14] MEDS: PIPERACILLIN SODIUM/TAZOBACTAM 3.375 GM in 0.9 % SODIUM CHLORIDE 50 ML IV ×3 (05:00→21:09)
[2025-03-14] MEDS: METHYLPREDNISOLONE SOD SUCC PF 40 MG/ML VIAL IVP ×2 (05:00→17:45)
[2025-03-14] MEDS: NYSTATIN 500,000 UNIT/5 ML ORAL.SUSP 500000 UNIT PO ×4 (05:32→21:08)
[2025-03-14] MEDS: BACLOFEN 10 MG TABLET PO ×3 (05:32→21:15)
[2025-03-14] MEDS: PANTOPRAZOLE SODIUM 40 MG TABLET.DR PO (05:32)
--- NOTE | 2025-03-14 08:46 | SWNOTE1 ---
2nd notice of IMM reviewed with pt, no questions or concerns at this time.
[2025-03-14 08:59] LABS: Glucometer 197 mg/dL (74-106)
--- NOTE | 2025-03-14 09:30 | PM.IMPN1 ---
Progress Note: A&P Assessment and Plan (1) HCAP (healthcare-associated pneumonia): (2) Multifocal pneumonia: (3) Acute exacerbation of chronic obstructive pulmonary disease: (4) Asthma with acute exacerbation: Qualifiers: Asthma severity: severe Asthma persistence: persistent Qualified Code(s): J45.51 - Severe persistent asthma with (acute) exacerbation (5) Chronic heart failure with preserved ejection fraction (HFpEF): (6) Respiratory failure with hypoxia: Qualifiers: Chronicity: chronic Qualified Code(s): J96.11 - Chronic respiratory failure with hypoxia Plan Patient admitted for generalized weakness, COPD/asthma exacerbation secondary to multifocal pneumonia as seen on CT chest. Patient was treated for possible hospital-acquired pneumonia -on IV vancomycin and IV Zosyn until 03/14/2025. Cultures negative so far. Will discontinue IV vancomycin. Continue with IV Zosyn as prior history of Pseudomonas pneumonia. Day 4 of IV antibiotic. On IV steroids, DuoNebs along with saline nebs/guaifenesin to help with mucus secretions/mucous plugging. Started on Lantus 15 units once daily because of steroid-induced hyperglycemia. Does not use insulin at home. More or less euvolemic and continue with home dose of Lasix. Closely monitor volume status as high risk of fluid overload while on steroids. Patient has chronic dyspnea at baseline and feels well today. Decrease steroids to 40 twice daily. Patient evaluated by PT/OT for generalized weakness and will need intermediate facility for rehab to help improve her functional status. Continue with current course of treatment. Awaiting precertification. Can be discharged on oral antibiotic once accepted for intermediate facility. Internal Medicine - PN: Subj Subjective Interval history: Seen and examined. Doing well overall. No overnight events. Exam Constitutional Vital Signs, click to edit/add: Last Vital Signs Temp 98.0 F 03/14/25 07:31 Pulse 72 03/14/25 07:53 Resp 18 03/14/25 07:31 BP 150/60 H 03/14/25 07:31 Pulse Ox 95 03/14/25 07:53 O2 Del Method Nasal Cannula 03/14/25 07:31 O2 Flow Rate 3 03/14/25 07:31 Documenting provider has reviewed patient's vital signs: yes Common normals: oriented x3 General appearance: cooperative, ill appearing and frail appearing Respiratory Common normals: normal respiratory effort Other: Coarse/harsh breath sounds. Improved air entry today. Does not appear short of breath at rest anymore Cardio Common normals: regular rate, S1 normal heart sound and S2 normal heart sound Rate: regular rate Heart sounds: S1 normal and S2 normal Extremity Common normals: no clubbing, cyanosis or edema Neuro Common normals: oriented x3, moves all extremities and no focal motor deficits Psych Common normals: mental status grossly normal, denies hallucinations, denies homicidal ideation and denies suicidal ideation Internal Medicine - PN: Obj Da Labs Labs: Laboratory Results - last 24 hr 03/13/25 03/14/25 10:58 08:48 Vancomycin Trough 14.1 POC Glucose 197 H
[2025-03-14] MEDS: INSULIN GLARGINE 300 UNIT/3 ML INSULN.PEN 15 UNIT SQ (09:31)
[2025-03-14] MEDS: PAROXETINE HCL 20 MG TABLET 40 MG PO (09:32)
[2025-03-14] MEDS: PREGABALIN 75 MG CAPSULE PO ×2 (09:32→21:08)
[2025-03-14] MEDS: NYSTATIN 100,000 UNITS/GRAM CREAM 15 GM TUBE 1 APPLIC TOPICAL ×2 (09:34→21:09)
--- NOTE | 2025-03-14 09:35 | CM.NOTE ---
Rounds made with Dr. Ohara. Dr. Ohara reviews plan of care. Continue with current treatment plan.
[2025-03-14] MEDS: BUDESONIDE 0.5 MG/2 ML AMPULE NEB IH ×2 (11:04→22:04)
--- NOTE | 2025-03-14 11:35 | PT.DAILY ---
Physical Therapy Daily Note PT Daily Note/Assess Start: 03/11/25 14:27 Freq: Status: Active Protocol: Document 03/14/25 10:40 MICHEL (Rec: 03/14/25 11:35 MICHEL [id number]) Physical Therapy Daily Note/Assessment Time In/Time Out Time In 10:42 Time Out 11:06 Subjective Subjective Patient reports feeling a little better each day, still SOB with short distance ambulation into bathroom. Constant fatigue, I just feel like all I want to do is sleep or nod off. Therapeutic Exercise Time Therapeutic Exercise 10 Minutes (minutes) Therapeutic Exercise 1 Units Therapeutic Exercise Treatment Therapeutic Exercise Seated exercises with AROM, isometrics and resisted red Treatment thera-band 10 reps each. Therapeutic Activity Time Therapeutic Activity 13 Minutes (minutes) Therapeutic Activity 1 Units Therapeutic Activity Treatment Chair Transfer Standby Assistance Ability Therapeutic Activity Sit to stands from various heights and surfaces SBA. Comments Gait 30'x2 with RW SBA, and assist for O2 line management. SPO2 after trial 1 of ambulation was 90 percent with quick recovery to 94 percent, after trail 2 was 89 percent with quick recovery to 92 percent. Dynamic standing activity 3 min x 2 with 1 UE support and SBA, did demonstrate LOB x1 with reach back but was able to self correct with use of RW. Total Physical Therapy Time Total Therapy 23 Minutes Total Physical 2 Therapy Units Summary Daily Note Summary Improved distance with gait today to 30', but will still benefit from SNF at [place] due to fatigue and SOB prior to safe household distances. Patient also demonstrated a LOB with dynamic activity today but did self correct. Exercises were progressed to focus on B LE strengthening with mild to moderate fatigue observed . Patient was in chair with call light in reach and all needs met post RX.
--- NOTE | 2025-03-14 11:40 | SWNOTE1 ---
JAZMIN messaged Silvana at [facility], she has not heard anything from insurance. JAZMIN to call.
[2025-03-14] MEDS: GUAIFENESIN 600 MG TAB.ER.12H PO (11:53)
--- NOTE | 2025-03-14 11:56 | SWNOTE1 ---
SW called and spoke to pt's insurance. They were able to look up patient and see that precert is still pending and the rn case mgr is Camille.
--- NOTE | 2025-03-14 12:34 | SWNOTE1 ---
JAZMIN faxed PT note, progress note, labs and vitals to Silvana at [facility].
--- NOTE | 2025-03-14 13:12 | OT.DAILY ---
Occupational Therapy Daily Note OT Inpatient Daily Visit Note Start: 03/12/25 10:27 Freq: Status: Active Protocol: Document 03/14/25 12:59 [id number] (Rec: 03/14/25 13:11 [id number]) OT Visit Details Time In/Time Out Time In 12:10 Time Out 12:25 OT Treatment Plan Subjective Subjective Pt awake and alert, willing to participate in self care tasks. Objective Objective Completed [id number] with walker, good ambulation to bathroom. Successful voiding and BMs. Mod A doffing LB garments, Mod A donning LB garments when toileting. Good sequencing by hand hygiene. Good safety techniques with lbx-oz-[id number] transfers, 1-3 verbal cues. Good sitting balance on toilet. Maintaining O2 on NC. Verbalized SOB and fatigue following tasks. Assessment Assessment Tolerated treatment well. Pt has progressed, able to tolerate walking to bathroom for ADL toileting tasks, no longer using bedside commode. Continue OT POC. OT Residential Case Manager Timed Codes Self-Assisted 15 Management minutes ( minutes) Self-Assisted 1 Management units
--- NOTE | 2025-03-14 15:22 | SWNOTE1 ---
JAZMIN faxed OT note over to [facility]. JAZMIN spoke to Silvana at [facility] and Luzma Bailey will be there over the weekend and she will be checking the precerts by email. She will call over to hospital if pt is approved over the weekend. JAZMIN to let nursing know. JAZMIN has completed HENS and took packet to the floor.
[2025-03-14] MEDS: PRAMIPEXOLE 0.125 MG TABLET 0.25 MG PO (21:05)
[2025-03-14] MEDS: LATANOPROST 0.005% 2.5 ML BOTTLE 1 DROP OP (21:08)
[2025-03-14] MEDS: TRAZODONE HCL 50 MG TABLET 100 MG PO (21:08)
[2025-03-14] MEDS: ENOXAPARIN SODIUM 40 MG/0.4 ML SYRINGE SUBQ (21:14)
[2025-03-15] VITALS (18 sets, daily range): BP systolic 122–170; BP diastolic 69–92; PULSE 55–81; TEMP 36.3–37.1; O2SAT 91–98
[2025-03-15] MEDS: IPRATROPIUM/ALBUTEROL SULFATE 3 ML AMPUL.NEB IH ×4 (05:05→22:02)
[2025-03-15] MEDS: SODIUM CHLORIDE 3% INHALATION 15 ML NEB 3 ML IH ×4 (05:05→22:02)
[2025-03-15] MEDS: PIPERACILLIN SODIUM/TAZOBACTAM 3.375 GM in 0.9 % SODIUM CHLORIDE 50 ML IV ×3 (05:33→21:34)
[2025-03-15] MEDS: NYSTATIN 500,000 UNIT/5 ML ORAL.SUSP 500000 UNIT PO ×4 (05:33→21:35)
[2025-03-15] MEDS: METHYLPREDNISOLONE SOD SUCC PF 40 MG/ML VIAL IVP ×2 (05:33→17:29)
[2025-03-15] MEDS: BACLOFEN 10 MG TABLET PO ×3 (05:33→22:26)
[2025-03-15] MEDS: PANTOPRAZOLE SODIUM 40 MG TABLET.DR PO (05:33)
[2025-03-15 05:50] LABS: Hematocrit 32.8 % (36.0-48.0); Hemoglobin 10.4 g/dL (12.0-16.0); Mean Corpuscular HGB Conc 31.7 g/dL (29.9-35.2); Mean Corpuscular Volume 97.9 fL (81.0-99.0); Mean Platelet Volume 9.4 fL (9.5-13.5); Platelet Count 280 10^3/uL (150-450); Red Blood Count 3.35 10^6/uL (4.20-5.40); Red Cell Distribution Width 12.8 % (11.0-15.0); White Blood Count 8.4 10^3/uL (4.0-11.0)
[2025-03-15 06:10] LABS: Alanine Aminotransferase 42 U/L (14-59); Albumin Globulin Ratio 0.6; Albumin Level 2.3 g/dL (3.4-5.0); Alkaline Phosphatase 91 U/L (46-116); Anion Gap 7.1; Aspartate Amino Transferase 22 U/L (15-37); BUN Creatinine Ratio 24.4; Bilirubin Total 0.1 mg/dL (0.2-1.0); Calcium 8.7 mg/dL (8.5-10.1); Carbon Dioxide 33.8 mmol/L (21.0-32.0); Chloride 101 mmol/L (98-107); Estimated GFR (African America >60 (>=60 mL/min/1.73m^2); Estimated GFR (Non-African Ame >60 (>=60 mL/min/1.73m^2); Globulin 4.1 g/dL; Glucose 186 mg/dL (74-106); Potassium 3.9 mmol/L (3.5-5.1); Sodium 138 mmol/L (136-145); Total Protein 6.4 g/dL (6.4-8.2)
[2025-03-15 06:39] LABS: Band Neutrophils Absolute 0.1 10^3/uL (0.0-0.3); Lymphocytes Absolute Manual 1.93 10^3/uL (1.20-3.80); Segmented Neut Absolute Manual 5.71 10^3/uL (1.4-6.5)
[2025-03-15 06:40] LABS: Monocytes Absolute Manual 0.67 10^3/uL (0.30-0.80)
--- NOTE | 2025-03-15 08:11 | PM.PN ---
Progress Note: Subjective Subjective Interval history: Patient walked to chair with walker. Still slight shortness of breath with exertion but patient reports much improvement. Denies fevers or chills. Exam Narrative Exam Narrative: General: Patient is alert, and oriented to person, place and time with some shortness of breath with conversing Skin: no visible rashes, or ulcers Head: atraumatic, acephalic Eyes: PERRLA, no nystagmus present, conjunctiva clear, no scleral icterus Neck: no masses palpated Heart: Normal rate and rhythm, no murmurs/rubs/gallops Lungs: crackles bilaterally Abdomen: Normal audible bowel sounds, no distension, No palpable masses, no organomegaly, no rebound/guarding/ or rigidity Musculoskeletal: mild swelling bilateral lower extremities Neuro: CN II-X grossly intact Constitutional Vital Signs, click to edit/add: Last Vital Signs Temp 97.9 F 03/15/25 04:00 Pulse 68 03/15/25 08:00 Resp 18 03/15/25 05:05 BP 128/75 03/15/25 04:00 Pulse Ox 96 03/15/25 06:00 O2 Del Method Home BIPAP / CPAP 03/15/25 05:05 O2 Flow Rate 4 03/15/25 05:05 Progress Note: Objective Labs Labs: Short CBC 03/15/25 Range/Units 05:20 WBC 8.4 (4.0-11.0) 10^3/uL Hgb 10.4 L (12.0-16.0) g/dL Hct 32.8 L (36.0-48.0) % Plt Count 280 (150-450) 10^3/uL BMP 03/15/25 05:20 Sodium 138 Potassium 3.9 Chloride 101 Carbon Dioxide 33.8 H BUN 22.0 H Creatinine 0.90 Glucose 186 H Calcium 8.7 Liver Function 03/15/25 Range/Units 05:20 Total Bilirubin 0.1 L (0.2-1.0) mg/dL AST 22 (15-37) U/L ALT 42 (14-59) U/L Alkaline Phosphatase 91 (46-116) U/L Albumin 2.3 L (3.4-5.0) g/dL Progress Note: A&P Assessment and Plan (1) HCAP (healthcare-associated pneumonia): Assessment and Plan: Multifocal pneumonia on CT chest. continue on IV vancomycin, Zosyn. Follow-up sputum and blood cultures. (2) Respiratory failure with hypoxia: Assessment and Plan: On 3 with oxygen at baseline. Currently on 4 L of oxygen. Patient is dyspneic at rest Qualifiers: Chronicity: chronic Qualified Code(s): J96.11 - Chronic respiratory failure with hypoxia (3) Multifocal pneumonia: Assessment and Plan: see #1 (4) Acute exacerbation of chronic obstructive pulmonary disease: Assessment and Plan: Patient on IV Solu-Medrol, inhaled DuoNebs. Added saline nebs along with Mucinex. (5) Asthma with acute exacerbation: Assessment and Plan: Patient on IV Solu-Medrol, inhaled DuoNebs. Added saline nebs along with Mucinex. Qualifiers: Asthma persistence: persistent Asthma severity: severe Qualified Code(s): J45.51 - Severe persistent asthma with (acute) exacerbation (6) Chronic heart failure with preserved ejection fraction (HFpEF): Assessment and Plan: Patient appears hypervolemic on clinical exam. give Lasix 40mg IV now (7) Lumbar stenosis with neurogenic claudication: Assessment and Plan: Pain unchanged. On pregabalin. Continue with same. (8) Depression: Assessment and Plan: Mood is stable. Continue medications. Qualifiers: Depression Type: major depressive disorder Major depression recurrence: recurrent Active/Remission status: in full remission Qualified Code(s): F33.42 - Major depressive disorder, recurrent, in full remission Plan Patient is a DNRCCA Patient is overall improving, awaiting precert to nursing home facility and will transition to oral meds once clinically stable, Given Lasix 40mg IV x 1 today
[2025-03-15] MEDS: PAROXETINE HCL 20 MG TABLET 40 MG PO (09:11)
[2025-03-15] MEDS: GUAIFENESIN 600 MG TAB.ER.12H PO ×2 (09:11→21:36)
[2025-03-15] MEDS: PREGABALIN 75 MG CAPSULE PO ×2 (09:11→21:36)
[2025-03-15] MEDS: NYSTATIN 100,000 UNITS/GRAM CREAM 15 GM TUBE 1 APPLIC TOPICAL ×2 (09:12→21:40)
[2025-03-15] MEDS: INSULIN GLARGINE 300 UNIT/3 ML INSULN.PEN 15 UNIT SQ (09:12)
[2025-03-15] MEDS: BUDESONIDE 0.5 MG/2 ML AMPULE NEB IH ×2 (10:42→22:02)
[2025-03-15] MEDS: FUROSEMIDE 40 MG/4 ML VIAL IVP (12:33)
[2025-03-15] MEDS: PRAMIPEXOLE 0.125 MG TABLET 0.25 MG PO (21:35)
[2025-03-15] MEDS: TRAZODONE HCL 50 MG TABLET 100 MG PO (21:36)
[2025-03-15] MEDS: ENOXAPARIN SODIUM 40 MG/0.4 ML SYRINGE SUBQ (22:25)
[2025-03-15] MEDS: LATANOPROST 0.005% 2.5 ML BOTTLE 1 DROP OP (22:26)
[2025-03-16] VITALS (13 sets, daily range): BP systolic 122–164; BP diastolic 69–89; PULSE 5–76; TEMP 36.6–37.2; O2SAT 92–97
[2025-03-16] MEDS: SODIUM CHLORIDE 3% INHALATION 15 ML NEB 3 ML IH ×2 (05:02→11:06)
[2025-03-16] MEDS: IPRATROPIUM/ALBUTEROL SULFATE 3 ML AMPUL.NEB IH ×2 (05:02→11:07)
[2025-03-16] MEDS: PIPERACILLIN SODIUM/TAZOBACTAM 3.375 GM in 0.9 % SODIUM CHLORIDE 50 ML IV (05:25)
[2025-03-16] MEDS: PANTOPRAZOLE SODIUM 40 MG TABLET.DR PO (05:32)
[2025-03-16] MEDS: BACLOFEN 10 MG TABLET PO (05:32)
[2025-03-16] MEDS: METHYLPREDNISOLONE SOD SUCC PF 40 MG/ML VIAL IVP (05:33)
[2025-03-16] MEDS: NYSTATIN 500,000 UNIT/5 ML ORAL.SUSP 500000 UNIT PO ×2 (05:33→13:14)
[2025-03-16 05:41] LABS: Glucometer 139 mg/dL (74-106)
[2025-03-16 06:09] LABS: Hematocrit 34.5 % (36.0-48.0); Hemoglobin 11.3 g/dL (12.0-16.0); Mean Corpuscular HGB Conc 32.8 g/dL (29.9-35.2); Mean Corpuscular Hemoglobin 31.7 pg (26.7-34.0); Mean Corpuscular Volume 96.9 fL (81.0-99.0); Mean Platelet Volume 9.2 fL (9.5-13.5); Platelet Count 322 10^3/uL (150-450); Red Blood Count 3.56 10^6/uL (4.20-5.40); Red Cell Distribution Width 12.6 % (11.0-15.0)
[2025-03-16 06:27] LABS: Atypical Lymphocytes Abs Man 0.36; Monocytes Absolute Manual 0.48 10^3/uL (0.30-0.80); Myelocytes Absolute Manual 0.24; Segmented Neut Absolute Manual 9.12 10^3/uL (1.4-6.5)
[2025-03-16 06:35] LABS: Alanine Aminotransferase 51 U/L (14-59); Albumin Globulin Ratio 0.6; Albumin Level 2.5 g/dL (3.4-5.0); Alkaline Phosphatase 86 U/L (46-116); Anion Gap 7.4; Aspartate Amino Transferase 25 U/L (15-37); BUN Creatinine Ratio 33.7; Bilirubin Total 0.2 mg/dL (0.2-1.0); Calcium 8.9 mg/dL (8.5-10.1); Carbon Dioxide 34.4 mmol/L (21.0-32.0); Chloride 100 mmol/L (98-107); Estimated GFR (African America >60 (>=60 mL/min/1.73m^2); Estimated GFR (Non-African Ame 58 (>=60 mL/min/1.73m^2); Globulin 4.1 g/dL; Glucose 148 mg/dL (74-106); Potassium 3.8 mmol/L (3.5-5.1); Sodium 138 mmol/L (136-145); Total Protein 6.6 g/dL (6.4-8.2)
--- NOTE | 2025-03-16 08:15 | P.DS_ITS ---
DS: Providers Provider Date of admission: 03/11/25 00:51 Primary care physician: Kaylene López NP Attending physician on admission: Shaikh Lev Consults: 03/11/25 Occupational Therapy Eval and Treat Routine Reason for consultation: weakness Physical Therapy Eval and Treat Routine Reason for consultation: weakness 03/11/25 10:38 Consult to Pulmonology Routine Consulting Provider: Corbin Lopes Reason for consultation: pneumonia Discharging clinician: Magy Ross DS: Diagnosis Discharge Diagnosis (1) HCAP (healthcare-associated pneumonia): (2) Respiratory failure with hypoxia: Qualifiers: Chronicity: chronic Qualified Code(s): J96.11 - Chronic respiratory failure with hypoxia (3) Multifocal pneumonia: (4) Acute exacerbation of chronic obstructive pulmonary disease: (5) Asthma with acute exacerbation: Qualifiers: Asthma persistence: persistent Asthma severity: severe Qualified Code(s): J45.51 - Severe persistent asthma with (acute) exacerbation (6) Chronic heart failure with preserved ejection fraction (HFpEF): (7) Lumbar stenosis with neurogenic claudication: (8) Depression: Qualifiers: Active/Remission status: in full remission Depression Type: major depressive disorder Major depression recurrence: recurrent Qualified Code(s): F33.42 - Major depressive disorder, recurrent, in full remission DS: Summary Hospital Course Hospital Course: patient admitted on 03/11/25, 69-year-old female with past history of severe asthma/COPD, tracheomalacia, heart failure with preserved ejection fraction, chronic respiratory failure with hypoxia and recurrent pneumonia presented to ED with 1 day history of shortness of breath, dry cough. Patient typically uses 3 L of oxygen via nasal cannula and has chronic dyspnea but she could not catch her breath and sit up straight because of generalized weakness and significant dyspnea. She denies fever, chills. She reports hacking dry cough that is worse than usual. Workup in ED multifocal pneumonia along with worsening hypoxia for which patient was admitted for IV antibiotics and close inpatient monitoring. She had a CT chest that showed new bilateral infiltrates and considering her chronic lung disease, recurrent use of steroids and broad-spectrum antibiotics, she is at high risk of pneumonia secondary to resistant organisms. She has been treated with IV vancomycin and Zosyn to cover her for hospital-acquired pneumo chacha. Patient reports considerable dyspnea that is worse from her baseline and currently is on 4 L of oxygen via nasal cannula. She typically uses 3 L of oxygen at rest. On IV steroids, DuoNebs along with saline nebs/guaifenesin to help with mucus secretions/mucous plugging. Pulmonology on board. Patient was Started on Lantus 15 units once daily because of steroid-induced hyperglycemia. Does not use insulin at home. More or less euvolemic and continue with home dose of Lasix, did require 2 IV doses the last 2 days of 40mg IV lasix. Closely monitor volume status as high risk of fluid overload while on steroids. Patient has chronic dyspnea at baseline and feels well today. Decrease steroids to 40 twice daily and plan to transition to oral prednisone taper at discharge today. Patient evaluated by PT/OT for generalized weakness and will need halfway facility for rehab to help improve her functional status and the plan to go to the [facility] today. She is still requiring 4L of [place] oxygen at discharge. She will resume home medications with the addition of Lantus 15 units until she finishes the prednisone. She will be discharged on Augmentin 500mg BID x 7 days, and Levaquin 500mg daily x 5 days, along with prednisone taper for 3 weeks. She will have close PCP and Pulmonary follow up to be made by Nursing Facility. Status at Discharge Functional status at discharge: uses cane/walker Overall status at discharge: patient is progressing back to baseline Time Spent with Patient Time attestation: Total time spent providing and/or coordinating discharge services: Time spent: greater than 30 minutes Exam Narrative Exam Narrative: General: Patient is alert, and oriented to person, place and time with some shortness of breath with conversing Skin: no visible rashes, or ulcers Head: atraumatic, acephalic Eyes: PERRLA, no nystagmus present, conjunctiva clear, no scleral icterus Neck: no masses palpated Heart: Normal rate and rhythm, no murmurs/rubs/gallops Lungs: rhonchi bilaterally Abdomen: Normal audible bowel sounds, no distension, No palpable masses, no organomegaly, no rebound/guarding/ or rigidity Musculoskeletal: mild swelling bilateral lower extremities Neuro: CN II-X grossly intact Constitutional Vital Signs, click to edit/add: Last Vital Signs Temp 98.9 F 03/16/25 07:45 Pulse 63 03/16/25 08:00 Resp 18 03/16/25 07:46 BP 164/89 H 03/16/25 07:45 Pulse Ox 93 L 03/16/25 08:00 O2 Del Method Nasal Cannula 03/16/25 07:45 O2 Flow Rate 4 03/16/25 07:45 DS: Data Data Completed and Pending Labs on day of discharge: Labs from last 24 hours 03/16/25 03/16/25 05:54 05:40 WBC 12.0 H RBC 3.56 L Hgb 11.3 L Hct 34.5 L MCV 96.9 MCH 31.7 MCHC 32.8 RDW 12.6 Plt Count 322 MPV 9.2 L Seg Neuts % (Manual) 76.0 H Lymphocytes % (Manual) 15.0 L Atypical Lymphs % (Man) 3.0 Monocytes % (Manual) 4.0 Eosinophils % (Manual) 0.0 L Basophils % (Manual) 0.0 L Myelocytes % 2.0 Neutrophils # (Manual) 9.12 H Lymphocytes # (Manual) 1.80 Abs Atypical Lymphs Man 0.36 Monocytes # (Manual) 0.48 Eosinophils # (Manual) 0.00 Basophils # (Manual) 0.00 Myelocytes # 0.24 Sodium 138 Potassium 3.8 Chloride 100 Carbon Dioxide 34.4 H Anion Gap 7.4 BUN 32.0 H Creatinine 0.95 Est GFR ( Amer) >60 Est GFR (Non-Af Amer) 58 L BUN/Creatinine Ratio 33.7 Glucose 148 H Calcium 8.9 Total Bilirubin 0.2 AST 25 ALT 51 Alkaline Phosphatase 86 Total Protein 6.6 Albumin 2.5 L Globulin 4.1 Albumin/Globulin Ratio 0.6 POC Glucose 139 H Preliminary micro results at discharge 03/10/25 22:32 Blood Culture Result 2 - Preliminary Blood - Right Hand NO GROWTH AT 36-48 HOURS. FINAL TO FOLLOW. 03/10/25 22:25 Blood Culture Result 1 - Preliminary Blood - Left Antecubital NO GROWTH AT 36-48 HOURS. FINAL TO FOLLOW. Discharge Plan Discharge Disposition: Xfer SNF Discharge Medications: New ipratropium-albuterol 0.5 mg-3 mg(2.5 mg base)/3 mL Solution For Nebulization 3 ml inhalation Q4H PRN (Reason: Shortness Of Breath Or Wheezing) 30 Days Qty: 180 0RF insulin glargine [Lantus Solostar U-100 Insulin] 100 unit/mL (3 mL) Insulin Pen 15 unit subcut QD Qty: 15 0RF guaifenesin [Mucus Relief ER] 600 mg Tablet Extended Release 12hr 600 mg PO Q12H 7 Days Qty: 14 0RF amoxicillin-pot clavulanate [Augmentin] 500-125 mg tablet 1 tab PO BID 7 Days Qty: 14 0RF levofloxacin 500 mg tablet 500 mg PO DAILY 5 Days Qty: 5 0RF prednisone 10 mg tablet 10 mg PO .as directed Qty: 49 0RF Rx Instructions: take 40mg daily x 7 days, then 20mg daily x 7 days, then 10mg x 7 days, then stop furosemide [Lasix] 40 mg tablet 40 mg PO DAILY 7 Days Qty: 7 0RF Continued albuterol sulfate 2.5 mg /3 mL (0.083 %) solution for nebulization 2.5 mg inhalation QID PRN (Reason: shortness of breath or wheezing) sodium chloride 0.9 % solution for nebulization 2.5 ml INHALATION Q8H PRN (Reason: shortness of breath or wheezing) latanoprost 0.005 % drops 1 drp OPHTHALMIC (EYE) .HS magnesium oxide 400 mg (241.3 mg magnesium) tablet 400 mg PO DAILY Rx Instructions: WITH FOOD omeprazole 20 mg capsule,delayed release(DR/EC) 20 mg PO BID montelukast 10 mg tablet 10 mg PO DAILY pregabalin 75 mg capsule 75 mg PO BID solifenacin 10 mg tablet 10 mg PO QDAY trazodone 100 mg tablet 100 mg PO .qhs baclofen 10 mg tablet 10 mg PO Q8H Breztri Aerosphere 160-9-4.8 mcg/actuation HFA aerosol inhaler 2 inh INHALATION Q12H paroxetine HCl 40 mg tablet 40 mg PO DAILY nystatin 100,000 unit/gram cream 1 applic TOPICAL BID Rx Instructions: 03/02/25-03/16/25 pramipexole 0.25 mg tablet 0.25 mg PO .qhs Print Language: Khmer Activity Restrictions/Additional Instructions: 4L continuous oxygen via [place] Forms: Portal Instructions Follow Up Appointments: has follow up with Dr. Lopes already made 04/02/2025 @ 10:30 Discharge Location: [facility] [place]
[2025-03-16] MEDS: PREGABALIN 75 MG CAPSULE PO (08:24)
[2025-03-16] MEDS: INSULIN GLARGINE 300 UNIT/3 ML INSULN.PEN 15 UNIT SQ (08:24)
[2025-03-16] MEDS: PAROXETINE HCL 20 MG TABLET 40 MG PO (08:24)
[2025-03-16] MEDS: GUAIFENESIN 600 MG TAB.ER.12H PO (08:24)
[2025-03-16] MEDS: NYSTATIN 100,000 UNITS/GRAM CREAM 15 GM TUBE 1 APPLIC TOPICAL (08:25)
[2025-03-16] MEDS: BUDESONIDE 0.5 MG/2 ML AMPULE NEB IH (11:07)
== END 2025-03-16 13:30 | DRG 193 ==
LOC: ER 22:05 → MS 03-11 11:10
PROVIDERS: Nurse Practitioner Family; Registered Nurse; Admitting Provider Internal Medicine; Emergency Provider Student in an Organized Health Care Education/Training Program; PCP Nurse Practitioner; Visit Provider Family Medicine
DX: J18.9 Pneumonia, unspecified organism (principal); I50.33 Acute on chronic diastolic (congestive) heart failure; G72.81 Critical illness myopathy; J44.0 Chronic obstructive pulmonary disease with (acute) lower respiratory infection; J44.1 Chronic obstructive pulmonary disease with (acute) exacerbation; J45.51 Severe persistent asthma with (acute) exacerbation; Z68.41 Body mass index [BMI] 40.0-44.9, adult; J96.11 Chronic respiratory failure with hypoxia; J98.09 Other diseases of bronchus, not elsewhere classified; U09.9 Post COVID-19 condition, unspecified; Y95 Nosocomial condition; E11.65 Type 2 diabetes mellitus with hyperglycemia; T38.0X5A Adverse effect of glucocorticoids and synthetic analogues, initial encounter; Y92.239 Unspecified place in hospital as the place of occurrence of the external cause; I25.10 Atherosclerotic heart disease of native coronary artery without angina pectoris; M48.062 Spinal stenosis, lumbar region with neurogenic claudication; F33.42 Major depressive disorder, recurrent, in full remission; Z99.81 Dependence on supplemental oxygen; Z79.899 Other long term (current) drug therapy; Z79.51 Long term (current) use of inhaled steroids; Z85.820 Personal history of malignant melanoma of skin; E66.01 Morbid (severe) obesity due to excess calories; Z98.1 Arthrodesis status
CPT/HCPCS: 36415; 71045; 71250; 80053; 80202; 82948; 83605; 83735; 83880; 84484; 85007; 85025; 85027; 87040; 87070; 87205; 87804; 87811; 93005; 94640; 94667; 94668; 94761; 96365; 96367; 96375; 97110; 97161; 97165; 97530; 97535; 99285; J0456; J0696; J1650; J1938; J2543; J2919; J3370

== ENCOUNTER 2025-04-30 12:37 | Outpatient (OUT) | payer MEDICARE, MEDICAID, SELFPAY ==
--- OUTSIDE RECORDS SUMMARY | 2025-01-29 06:30 | XMS_ITS ---
Author Organization [facility] [place] Address [address] [place] [address] Care Team Providers Care Clinical Administrator Name Role Phone Brianceleste CLEO Kaylene Primary Care Provider Unavail able Corbin Lopes Unavailable [phone] Allergies No Known Allergies REASON FOR VISIT HOSPITAL F/U Medications Medication SIG (Take, Route, Frequency, Duration) Notes Start Date End Date Status Albuterol Sulfate HFA 108 (90 Base) MCG/ACT 2 puffs as needed for SOB Inhalation every 4 hrs Active Albuterol Sulfate (2.5 MG/3ML) 0.083% 3mL Inhalation QID for 90 days Dispense #360 nebules Active Vitamin D3 25 MCG (1000 UT) 1 capsule Orally Once a day Active Solifenacin Succinate 10 MG TAKE 1 TABLET BY MOUTH ONCE DAILY Oral for 30 days Active traZODone HCl 100 MG 1 tablet at bedtime as needed Orally Once a day Active Sodium Chloride 0.9 % 3mL Inhalation TID for 30 Active Pregabalin 75 MG Oral for 30 Days Active Trelegy Ellipta 200-62.5-25 MCG/ACT 1 puff Inhalation Once a day for 90 days Rinse after use 05/28/2024 Active Pramipexole Dihydrochloride 0.25 MG Oral for 30 Days Active Omeprazole 20 MG 1 capsule 30 minutes before morning meal Orally BID Active Montelukast Sodium 10 MG 1 tablet Orally Once a day for 90 days Active Mucinex 600 MG 1 tablet as needed Orally every 12 hrs for 90 days Active Fluticasone Propionate 50 MCG/ACT 2 squirts in each nostril Nasally QD for 90 days Dispense 3 bottles Active Iron 325 (65 Fe) MG 1 tablet Orally Every other day Active Clotrimazole 10 MG 1 neelima Mouth/Throat QID for 10 days Dissolve in mouth 05/02/2023 Active Latanoprost 0.005 % INSTILL 1 DROP INTO EACH EYE AT BEDTIME Ophthalmic for 45 Days Active Magnesium Oxide 400 MG 1 tablet as neede d Orally Once a day Active Social History Tobacco Use: Social History Observation Description Date Details (start date - stop date) Never Smoker NA - NA Tobacco Control (Standard) Question Answer Notes Tobacco use: Nonsmoker Vital Signs Temperature 96.9 degrees Fahrenheit 01/30/20 25 Blood pressure systolic 105 mm Hg 01/30/20 25 Blood pressure diastolic 68 mm Hg 025 Heart Rate 79 /min 01/29/2025 Respiratory Rate 20 /min 01/29/2025 Height 61 in 01/29/2025 Weight 236.0 lbs 01/29/2025 BMI 44.59 kg/m2 01/29/2025 Oximetry 98 % 01/29/2025 Encounters Encounter Location Date Provider Diagnosis Pulmonary Medicine [address] [id number] 01/29/2025 Corbin Lopes Chronic obstructive pulmonary disease J44.9 ; Other pulmonary collapse J98.19 ; 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 ; Other secondary pulmonary hypertension I27.29 ; Chronic respiratory failure with hypoxia J96.11 ; intermediate manager (current) use of inhaled steroids Z79.51 ; History of COVID-19 Z86.16 and Morbid (severe) obesity due to excess calories E66.01 Assessments Encounter Date Diagnosis (ICD Code) Assessment Notes Treatment Notes Treatment Clinical Notes Section Notes 01/29/2025 Chronic obstructive pulmonary disease (ICD-10 - J44.9) Prior treatment: Trelegy 200 > Trelegy 100 > Breo 100 > Spiriva > albuterol > Atrovent Patient is complaining of recurrent candidiasis, though I don't see any today on examination. She is on the higher dose of Trelegy (200) which contains a higher potency ICS. Additionally, she complains now that she does not have the energy to fully inhale the Trelegy Ellipta (decreased NIF associated with the critical illness myopathy). This causes deposition on the tongue and larynx. Both of these factors are likely contributing to the recurrent candidiasis. Additionally, there is decreased distribution of the Trelegy medications deeper into the bronchial tree where they exert their mechanism of action. I suggested several interventions: 1) Change Trelegy to Breztri. Breztri is still a triple ICS/LABA/LAMA inhaler, but is HFA formulation and can be used with an aerochamber, which she has. This would require much less NIF compared to the Ellipta. Budesonide in Breztri may be less equipotent than fluticasone furoate in Trelegy, decreasing the risk of candidiasis. 2) Add Ohtuvayre (ensifentine), a novel PDE3/PDE4 inhibitor. This works via a completely different mechanism than ICS/LABA/LAMA with the hopes that it would compensate for decreasing the equipotent ICS dose - it is possible it could be even better than Trelegy 200. Explained it is via the nebulizer BID. Reviewed potential adverse effects with the patient, including psychiatric. I also discussed changing ICS/LABA/LAMA completely to nebulized formulartions (e.g. Pulmicort/Brovana/ Yupelri), but then she could have 6 different nebulized solutions (these 3 on top of sodium chloride, albuterol, and Ohtuvayre) - this could be extremely confusing. Will see how she responds to Breztri first. F/U 2 months. 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 Compliance from 12/29/2024 - 01/23/2025 was reviewed. She continues to voice improved breathing using NIV. There is a slight decrease in compliance from January 08 through secondary to her hospital admission. Other than that, she continues to do very well. Her rash has resolved. 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 -Use of vest twice daily: Yes -Improvement of mobilization and clearance of secretions: Yes -Amplitude/frequen cy of oscillations tolerable: Yes -Continues to use nebulized saline: Yes -Continues to use PEP device: Admits to multiple uses per day -Recommendations: Patient is doing her best to maintain a good pulmonary toilet, but unfortunately her underlying status increases her risk for cuticle diseases. She feels benefit from her pulmonary toilet and wishes to remain on it. Continue vest, PEP, and saline nebs. 01/29/2025 Other secondary pulmonary hypertension (ICD-10 - I27.29) Echocardiogram January 2025 continues to show elevated RVSP; it is currently 63 mmHg. She is seeing cardiology and suspect it is group 3 etiology (pulmonary). Fortunately, there are no great medications to treat this other than treating the underlying condition which I am attempting to do as above. If I maximize her from that standpoint, may need to consider alternative treatments typically reserved for either Group 1 pulmonary hypertension, or group 3 pulmonary hypertension secondary to ILD-studies are lacking in situation such as this patient's. Need to be concerned about starting PDE 5 inhibitor given patient's recent episodes of lightheadedness. 01/29/2025 Chronic respiratory failure with hypoxia (ICD-10 - J96.11) Tpxb-zp-rpia encounter performed with the patient to document continued need for supplemental oxygen (O2). -Flow & directions: 3L/min ATC -Patient voices adherence to recommended usage: Yes -Symptom control on O2: More dyspnea when she takes it off -Counseled patient not begin, restart, or continue smoking, around the O2 due to risk of fire which could result in damage to the O2 tanks & lines, smoke inhalation and flame damage to the airway, significant garcia, potential , property damage, and potential harm & to bystanders. Additionally, counseled it is not simental to begin, restart, or continue smoking given the underlying pulmonary disease that led to the point of requiring O2. -Recommendations: Continue O2 as directed 01/29/2025 alf (current) use of inhaled steroids (ICD-10 - Z79.51) Patient was counseled to rinse & gargle with water after inhaled corticosteroid use. 01/29/2025 History of COVID-19 (ICD-10 - Z86.16) 04/04/2023: Severe associated hypoxic respiratory failure 01/29/2025 Morbid (severe) obesity due to excess calories (ICD-10 - E66.01) Patient's weight is inducing a restrictive pulmonary physiology. Weight loss indicated: Decrease calories, increase activity. 01/29/2025 Other As above, suggested patient scrub her face twice daily with Selsun Blue. Any further treatment, follow-up with PCP. Plan Of Treatment Treatment Notes Assessment Notes Chronic obstructive pulmonary disease Prior treatment: Trelegy 200 > Trelegy 100 > Breo 100 > Spiriva > albuterol > Atrovent Patient is complaining of recurrent candidiasis, though I don't see any today on examination. She is on the higher dose of Trelegy (200) which contains a higher potency ICS. Additionally, she complains now that she does not have the energy to fully inhale the Trelegy Ellipta (decreased NIF associated with the critical illness myopathy). This causes deposition on the tongue and larynx. Both of these factors are likely contributing to the recurrent candidiasis. Additionally, there is decreased distribution of the Trelegy medications deeper into the bronchial tree where they exert their mechanism of action. I suggested several interventions: 1) Change Trelegy to Breztri. Breztri is still a triple ICS/LABA/LAMA inhaler, but is HFA formulation and can be used with an aerochamber, which she has. This would require much less NIF compared to the Ellipta. Budesonide in Breztri may be less equipotent than fluticasone furoate in Trelegy, decreasing the risk of candidiasis. 2) Add Ohtuvayre (ensifentine), a novel PDE3/PDE4 inhibitor. This works via a completely different mechanism than ICS/LABA/LAMA with the hopes that it would compensate for decreasing the equipotent ICS dose - it is possible it could be even better than Trelegy 200. Explained it is via the nebulizer BID. Reviewed potential adverse effects with the patient, including psychiatric. I also discussed changing ICS/LABA/LAMA completely to nebulized formulartions (e.g. Pulmicort/Brovana/Yupelri), but then she could have 6 different nebulized solutions (these 3 on top of sodium chloride, albuterol, and Ohtuvayre) - this could be extremely confusing. Will see how she responds to Breztri first. F/U 2 months. 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 Compliance from 12/29/2024 - 01/23/2025 was reviewed. She continues to voice improved breathing using NIV. There is a slight decrease in compliance from January 08 through secondary to her hospital admission. Other than that, she continues to do very well. Her rash has resolved. Critical illness myopathy Mvbm-jd-piiy encounter performed with the patient to document continued need for a high frequency chest wall oscillation (vest) device. -Use of vest twice daily: Yes -Improvement of mobilization and clearance of secretions: Yes -Amplitude/frequency of oscillations tolerable: Yes -Continues to use nebulized saline: Yes -Continues to use PEP device: Admits to multiple uses per day -Recommendations: Patient is doing her best to maintain a good pulmonary toilet, but unfortunately her underlying status increases her risk for cuticle diseases. She feels benefit from her pulmonary toilet and wishes to remain on it. Continue vest, PEP, and saline nebs. Other secondary pulmonary hypertension Echocardiogram January 2025 continues to show elevated RVSP; it is currently 63 mmHg. She is seeing cardiology and suspect it is group 3 etiology (pulmonary). Fortunately, there are no great medications to treat this other than treating the underlying condition which I am attempting to do as above. If I maximize her from that standpoint, may need to consider alternative treatments typically reserved for either Group 1 pulmonary hypertension, or group 3 pulmonary hypertension secondary to ILD-studies are lacking in situation such as this patient's. Need to be concerned about starting PDE 5 inhibitor given patient's recent episodes of lightheadedness. Chronic respiratory failure with hypoxia Fggi-bl-dfmy encounter performed with the patient to document continued need for supplemental oxygen (O2). -Flow & directions: 3L/min ATC -Patient voices adherence to recommended usage: Yes -Symptom control on O2: More dyspnea when she takes it off -Counseled patient not begin, restart, or continue smoking, around the O2 due to risk of fire which could result in damage to the O2 tanks & lines, smoke inhalation and flame damage to the airway, significant garcia, potential , property damage, and potential harm & to bystanders. Additionally, counseled it is not simental to begin, restart, or continue smoking given the underlying pulmonary disease that led to the point of requiring O2. -Recommendations: Continue O2 as directed intermediate manager (current) use of i nhaled steroids Patient was counseled to rinse & gargle with water after inhaled corticosteroid use. Morbid (severe) obesity due to excess calories Patient's weight is inducing a restrictive pulmonary physiology. Weight loss indicated: Decrease calories, increase activity. Other As above, suggested patient scrub her face twice daily with Selsun Blue. Any further treatment, follow-up with PCP. Next Appt Details Follow Up: 2 Months, Reason: COPD Provider Name:Corbinkrishna Lopes, 05/01/2025 01:00:00 PM, [address] [place], [address], Provider Name:Corbin Lopes, 07/02/2025 10:30:00 AM, [address] [place], [address], Procedure Notes * Category Sub-Category Detail Notes PFT Data: 01/24/2022-FEV1/F VC: 76%-FEV1: 79%-FVC: 80%-Bronchodilator response: None-RV: 80%-T%-DLCO: 90%-Flow-volume loop: Mild restriction, sawtoothing07/01/2019-FEV1/FVC: 57%-FEV1: 53%-FVC: 72%-Bronchodilator response: None-RV: 122%-T%-DLCO: 68%-Flow-volume loop: Moderate obstruction05/30/2014-FEV1/FVC: 80%-FEV1: 79%-FVC: 76%-Bronchodilator response: None-RV: 79%-T%-DLCO: 92%-Flow-volume loop: Mild restriction01/09/2010-FEV1/FVC: 75%-FEV1: 79%-FVC: 83%-Bronchodilator response: None-RV: 90%-T%-DLCO: 72%-Flow-volume loop: Moderate restriction Alpha-1 Antitrypsin Screening Date: 02/08/2022 Genotype: MM Progress Notes * Diana CHAMPION ADOB: 6 (69 yo F)Acc No.[id number]:01/29/2025 Progress Note Patient: Nicci SAÚLRajendra Diana Fan Provider: Jona Lopes DO :1955 A ge:69 Y S ex:Female Date:01/29/2025 Address:[address] [place] [place], [id number] Pcp:CRISTOBAL VALLADARES Check In:10:14 AM ESTCheck O ut:10:57 AM EST Subjective: * Chief Complaints: * H OSPITAL F/U * HPI: G eneral: Patient admitted the end of December and discharged home 01/07/2025. She returned the following day with worsening respiratory status and was positive for COVID-19 a gain(it was negative the prior admission). Sputum returned positive for Pseudomonas as well. Luckily, she recovered much better and quicker than the prior time she had COVID-19 which induced her critical illness myopathy. She continues to have a rhonchorus cough with productive sputum. She complains of recurrent candidiasis. She is currently on Trelegy 200 - she voiced she does not feel that she gets a full breath when she uses Trelegy, feels that it is settling in her throat or tongue. She continues to use her NIV with voiced benefit. She is keeping up with her pulmonary toilet. MA Intake Comments:. Patient presents for a hospital follow up after Pneumonia on 01/08/2025. Patient is currently on 3L O2/NIV at home.DME:[facility]. Patient is currently using her Vest, Nebulizer & Trelegy daily with benefit. Patient complains of SOB. Patient denies fevers, chills or night sweats. Patient reports dizziness for the last week. Patient was recently seen by [facility] Cardiology. Patient states she has improved since being discharged from [facility]. * ROS: G eneral/Constitutional: Fatigue c hronic. F ever or sweats d enies. C hange of appetite d enies. C hills d enies.?Weight Change d enies. H EENT: Dry mouth m ild, chronic. S ore throat n ew. O ral Ulcers n ew. C ongestion n fanny congestion/allergies. H oarseness D enies. C ardiovascular: Tachycardia d enies. C hest pain d enies. P alpitations d enies. R espiratory: Pleurisy D enies. D yspnea w ith exertion. C ough d aily productive cough. H emoptysis d enies. W heezing d enies. G astrointestinal: Acid Reflux/GERD/Heartburn d enies. D ysphagia d enies. M usculoskeletal: Arthralgias/joint pain h ip. W eakness C hronic secondary to post-COVID critical illness myopathy. S kin: Rash i mproved on face. N eurologic: Seizures d enies. T remor d enies. H ematology: Abnormal Bleeding d enies. P sychiatric: Anxiety d enies. 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 Modified On:09/03/2024W/U Status:confirmed J30.9 Allergic rhinitis Modified On:03/20/2024W/U Status:confirmed R91.8 Ground glass opacity present on imaging of lung Modified On:03/20/2024W/U Status:confirmed J30.9 Allergic rhinitis, u nspecified seasonality, unspecified trigger Modified On:07/31/2023 J44.9 Chronic obstructive pulmonary disease Modified On:12/12/2023 J96.11 Chronic respiratory failure with hypoxia Modified On:12/12/2023 G72.81 Critical illness azael margarita Modified On:12/12/2023 G47.19 Daytime hypersomnole nce Modified On:12/12/2023 K21.9 Gastroesophageal ref lux disease Modified On:11/07/2023 Z86.16 History of COVID-19 Modified On:12/12/2023 Z79.51 alf (current) use of inhaled steroids Modified On:12/12/2023 E66.01 Morbid (severe) obes ity due to excess calories Modified On:12/12/2023 R91.8 Multiple pulmonary n odules Modified On:12/12/2023 J98.19 Other pulmonary jia apse Modified On:02/14/2024 I27.29 Other secondary pulm onary hypertension Modified On:07/31/2023 G25.81 Restless leg syndrom e Modified On:12/12/2023 G72.9 Myopathy, unspecifie d Modified On:02/14/2024U Status:confirmed Z68.41 Body mass index [BMI ] 40.0-44.9, adult Modified On:06/12/2024U Status:confirmed J44.1 Chronic obstructive pulmonary disease with (acute) exacerbation Modified On:08/26/2024U Status:confirmed J96.21 Acute and chronic re spiratory failure with hypoxia Modified On:08/26/2024U Status:confirmed M48.062 Lumbar stenosis with neurogenic claudication Modified On:12/03/2024U Status:confirmed F32.9 Depression Modified On:12/03/2024U Status:confirmed E83.42 Hypomagnesemia Modified On:01/16/2025U Status:confirmed D69.6 Thrombocytopenia Modified On:01/16/2025U Status:confirmed M16.9 OA (osteoarthritis) of hip Modified On:01/16/2025U Status:confirmed M16.11 Osteoarthritis of ri ght hip, unspecified osteoarthritis type Modified On:01/16/2025U Status:confirmed M16.11 Localized osteoarthr osis of right hip Modified On:01/20/2025U Status:confirmed F33.42 Depression, major, r ecurrent, in complete remission Modified On:01/20/2025U Status:confirmed I50.32 Chronic heart failur e with preserved ejection fraction (HFpEF) Modified On:01/20/2025U Status:confirmed * Medical History: * Surgical History: s gema fusion Cardiac Catheterization tubal ligation Right Foot Surgery right knee replacement left hip replacement Bronchoscopy- 07/02/2024 * Hospitalization/Major Diagno stic Procedure: C ovid-19-[facility] 04/10/2023Sepsis/Pneumonia-[facility] 11/25/2023neumonia-[facility] 02/03/2024OPD Exacerbation-[facility] 04/11/2024OPD Exacerbation-[facility] 06/07/2024Hospital Acquired Pneumonia-TB 4COPD Exacerbation, pneumonia-[facility] 11/12/2024sthma/COPD Exacerbation-[facility] 01/02/2025OVID & Pseudomonas pneumonia-[facility] 01/08/2025 * Family History: F ather: COPD, hyperthyroidism, depression, diagnosed with Unspecified essential hypertension.?Sister(s): asthma, diagnosed with Unspecified essential hypertension. S on(s): COPD. M aternal Grandmother: mental illness, diagnosed with Other malignant neoplasm of unspecified site.?Mother: diagnosed with Unspecified essential hypertension. * Social History: T obacco Use: T obacco Control (Standard) T obacco use: N onsmoker Electronic Cigarette use C urrent user N o M iscellaneous: C affeine: more than 4 cups per day. 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 D rugs/Alcohol: D rugs H ave you used drugs other than those for medical reasons in the past 12 months? N o D oes the Patient have a History of Drug Abuse in the Past? N o Caffeine I ntake: m ore than 4 cups per day Pepsi Do you drink alcohol?: No. Do you smoke marijuana?: Denies. * Medications: T akingAlbuterol Sulfate (2.5 MG/3ML) 0.083% Nebulization Solution 3mL Inhalation QID Dispense #360 nebulesAlbuterol Sulfate HFA 108 (90 Base) MCG/ACT Aerosol Solution 2 puffs as needed for SOB Inhalation every 4 hrs Clotrimazole 10 MG Neelima 1 neelima Mouth/Throat QID , Notes to Pharmacist: Dissolve in mouthFluticasone Propionate 50 MCG/ACT Suspension 2 squirts in each nostril Nasally QD Dispense 3 bottlesIron 325 (65 Fe) MG Tablet 1 tablet Orally Every other day Latanoprost 0.005 % Solution INSTILL 1 DROP INTO EACH EYE AT BEDTIME Ophthalmic Magnesium Oxide 400 MG Tablet 1 tablet as needed Orally Once a day Montelukast Sodium 10 MG Tablet 1 tablet Orally Once a day Mucinex(guaiFENesin ER) 600 MG Tablet Extended Release 12 Hour 1 tablet as needed Orally every 12 hrs Omeprazole 20 MG Capsule Delayed Release 1 capsule 30 minutes before morning meal Orally BID Pramipexole Dihydrochloride 0.25 MG Tablet Oral Pregabalin 75 MG Capsule Oral Sodium Chloride 0.9 % Nebulization Solution 3mL Inhalation TID Solifenacin Succinate 10 MG Tablet TAKE 1 TABLET BY MOUTH ONCE DAILY Oral traZODone HCl 100 MG Tablet 1 tablet at bedtime as needed Orally Once a day Trelegy Ellipta(Nkqqvquaeqf-Hvuyovpkk-Wtygfb) 200-62.5-25 MCG/ACT Aerosol Powder Breath Activated 1 puff Inhalation Once a day Rinse after useVitamin D3 25 MCG (1000 UT) Capsule 1 capsule Orally Once a day Taking Albuterol Sulfate (2.5 MG/3ML) 0.083% Nebulization Solution 3mL Inhalation QID Dispense #360 nebulesTaking Albuterol Sulfate HFA 108 (90 Base) MCG/ACT Aerosol Solution 2 puffs as needed for SOB Inhalation every 4 hrs Taking Clotrimazole 10 MG Neelima 1 neelima Mouth/Throat QID , Notes to Pharmacist: Dissolve in mouthTaking Fluticasone Propionate 50 MCG/ACT Suspension 2 squirts in each nostril Nasally QD Dispense 3 bottlesTaking Iron 325 (65 Fe) MG Tablet 1 tablet Orally Every other day Taking Latanoprost 0.005 % Solution INSTILL 1 DROP INTO EACH EYE AT BEDTIME Ophthalmic Taking Magnesium Oxide 400 MG Tablet 1 tablet as needed Orally Once a day Taking Montelukast Sodium 10 MG Tablet 1 tablet Orally Once a day Taking Mucinex(guaiFENesin ER) 600 MG Tablet Extended Release 12 Hour 1 tablet as needed Orally every 12 hrs Taking Omeprazole 20 MG Capsule Delayed Release 1 capsule 30 minutes before morning meal Orally BID Taking Pramipexole Dihydrochloride 0.25 MG Tablet Oral Taking Pregabalin 75 MG Capsule Oral Taking Sodium Chloride 0.9 % Nebulization Solution 3mL Inhalation TID Taking Solifenacin Succinate 10 MG Tablet TAKE 1 TABLET BY MOUTH ONCE DAILY Oral Taking traZODone HCl 100 MG Tablet 1 tablet at bedtime as needed Orally Once a day Taking Trelegy Ellipta(Kpagsihenjp-Mjylfufbs-Dajfzh) 200-62.5-25 MCG/ACT Aerosol Powder Breath Activated 1 puff Inhalation Once a day Rinse after useTaking Vitamin D3 25 MCG (1000 UT) Capsule 1 capsule Orally Once a day DiscontinuedAmoxicillin-Pot Clavulanate 500-125 MG Tablet 1 tablet Orally every 12 hrs PARoxetine HCl 30 MG Tablet 1 tablet in the morning Orally Once a day predniSONE 20 MG Tablet 3 tabs x 3 days, 2 tabs x 3 days, 1 tab x 3 days Orally Once a day Medication List reviewed and reconciled with the patientDiscontinued Amoxicillin-Pot Clavulanate 500-125 MG Tablet 1 tablet Orally every 12 hrs Discontinued PARoxetine HCl 30 MG Tablet 1 tablet in the morning Orally Once a day Discontinued predniSONE 20 MG Tablet 3 tabs x 3 days, 2 tabs x 3 days, 1 tab x 3 days Orally Once a day Medication List reviewed and reconciled with the patient * Allergies: N .K.D.A.no[Allergies Verified] Objective: * Vitals: W t:236.0lbs, Ht: 61 in, BP:sittin/68mm Hg, Temp:Forehead:96.9F, HR:79/min, RR:20/min, BMI:44.59Index, Oxygen sat %:Oxygen 3l:98%, Ht-cm: 154.94 cm, Wt-k.05 kg. * Examination: E xam: GENERAL APPEARANCE: L ooks okay for her. Skin R derrell along nasal labial folds has drastically improved. Nose W earing nasal cannula. Mouth P ink and mildly dry. Oropharynx/Tongue M allampati Class III. No candidiasis present. No postnasal drip today. Trachea M idline. Chest N ormal. Respiratory N ormal Movements. Auscultation D iffuse rhonchi, no wheezes. Fremitus M ildly increased tactile fremitus. Cardiac R egular rate and rhythm. Gastrointestinal N ormal. Vascular N o edema. Musculoskeletal U sing a wheeled walker. Neurological F ocal, intact. Psychiatric A lert and oriented x3. Mentation/Cognition N ormal. Assessment: * Assessment: 1. C hronic obstructive pulmonary disease - J44.9 (Primary) 2 . O ther pulmonary collapse - J98.19 N otes :Dynamic airway collapse 3 . 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 O ther secondary pulmonary hypertension - I27.29 5 . C hronic respiratory failure with hypoxia - J96.11 6 . L myla term (current) use of inhaled steroids - Z79.51 ?7. H istory of COVID-19 - Z86.16 N otes :04/04/2023: Severe associated hypoxic respiratory failure 8 . M orbid (severe) obesity due to excess calories - E66.01 Plan: * Treatment: 2. 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 Compliance from 12/29/2024 - 01/23/2025 was reviewed. She continues to voice improved breathing using NIV. There is a slight decrease in compliance from January 08 through secondary to her hospital admission. Other than that, she continues to do very well. Her rash has resolved. 3. C ritical illness myopathy Notes: Zedn-ab-sqfc encounter performed with the patient to document continued need for a high frequency chest wall oscillation (vest) device. -Use of vest twice daily: Yes -Improvement of mobilization and clearance of secretions: Yes -Amplitude/frequency of oscillations tolerable: Yes -Continues to use nebulized saline: Yes -Continues to use PEP device: Admits to multiple uses per day -Recommendations: Patient is doing her best to maintain a good pulmonary toilet, but unfortunately her underlying status increases her risk for cuticle diseases. She feels benefit from her pulmonary toilet and wishes to remain on it. Continue vest, PEP, and saline nebs. 4. O ther secondary pulmonary hypertension Notes: Echocardiogram January 2025 continues to show elevated RVSP; it is currently 63 mmHg. She is seeing cardiology and suspect it is group 3 etiology (pulmonary). Fortunately, there are no great medications to treat this other than treating the underlying condition which I am attempting to do as above. If I maximize her from that standpoint, may need to consider alternative treatments typically reserved for either Group 1 pulmonary hypertension, or group 3 pulmonary hypertension secondary to ILD-studies are lacking in situation such as this patient's. Need to be concerned about starting PDE 5 inhibitor given patient's recent episodes of lightheadedness. 5. C hronic respiratory failure with hypoxia Notes: Uomc-qk-uoub encounter performed with the patient to document continued need for supplemental oxygen (O2). -Flow & directions: 3L/min ATC -Patient voices adherence to recommended usage: Yes -Symptom control on O2: More dyspnea when she takes it off -Counseled patient not begin, restart, or continue smoking, around the O2 due to risk of fire which could result in damage to the O2 tanks & lines, smoke inhalation and flame damage to the airway, significant garcia, potential , property damage, and potential harm & to bystanders. Additionally, counseled it is not simental to begin, restart, or continue smoking given the underlying pulmonary disease that led to the point of requiring O2. -Recommendations: Continue O2 as directed 6. L myla term (current) use of inhaled steroids Notes: Patient was counseled to rinse & gargle with water after inhaled corticosteroid use. 7. M orbid (severe) obesity due to excess calories Notes: Patient's weight is inducing a restrictive pulmonary physiology. Weight loss indicated: Decrease calories, increase activity. 8. O thers Notes: As above, suggested patient scrub her face twice daily with Selsun Blue. Any further treatment, follow-up with PCP. * Procedures: A lpha-1 Antitrypsin: Screening Date: . Genotype: M M. P FT: Data: 01/24/2022 -FEV1/FVC: 76% -FEV1: 79% -FVC: 80% -Bronchodilator response: None -RV: 80% -T% -DLCO: 90% -Flow-volume loop: Mild restriction, sawtoothing 07/01/2019 -FEV1/FVC: 57% -FEV1: 53% -FVC: 72% -Bronchodilator response: None -RV: 122% -T% -DLCO: 68% -Flow-volume loop: Moderate obstruction 05/30/2014 -FEV1/FVC: 80% -FEV1: 79% -FVC: 76% -Bronchodilator response: None -RV: 79% -T% -DLCO: 92% -Flow-volume loop: Mild restriction 01/09/2010 -FEV1/FVC: 75% -FEV1: 79% -FVC: 83% -Bronchodilator response: None -RV: 90% -T% -DLCO: 72% -Flow-volume loop: Moderate restriction . * Procedure Codes: * Preventive Medicine: COVID Vaccination: H as patient had COVID Vaccination? COVID Vaccination Y es 08/26/2023 Immunization Status: P neumovacc P revnar 20- 08/09/2023. I nfluenza 1 . Z ostivax 1 01/02/2022. Screenings/Counseling: F ALL RISK SCREENING Fall Risk Assessment: N o falls in the past year Are you afraid of falling? N o T OBACCO ACTION PLAN Exclusion: M edical Reason Non Smoker Type of Medical Reason: N ot indicated B PA ACTION PLAN Above Normal BMI Follow-up D ietary management education, guidance, and counseling R AB-Drdzrn-17/13/2023. * Disposition & Communication: A ttestation: High level of medical decision making including changing her inhaled regimen around from dry powder inhaler to HFA formulation with AeroChamber, addition of a fourth inhaled medication for COPD (Ohtuvayre) in order to reduce the inhaled corticosteroid due to recurrent oral candidiasis. Reassessed patient's NIV, vest, PEP, and saline nebs regarding pulmonary toilet. Reviewed echocardiogram and discussed treatment for underlying pulmonary hypertension. * Follow Up: 2 Months (Reason: COPD) * * Sign off status: Completed Visit Status: C HK (Check Out) true * Provider: Jona Lopes DO Date: 0 01/29/2025 Generated for Walter márquez/Suman/Dulceitting on: 0 04/30/2025 12:40 PM EDT History and Physical Notes * HPI (History of Present Illness) Category Sub-Category Detail Notes Category Not es General Patient present s for a hospital follow up after Pneumonia on 01/08/2025. Patient is currently on 3L O2/NIV at home.DME:[facility]. Patient is currently using her Vest, Nebulizer & Trelegy daily with benefit. Patient complains of SOB. Patient denies fevers, chills or night sweats. Patient reports dizziness for the last week. Patient was recently seen by [facility] Cardiology. Patient states she has improved since being discharged from [facility]. Examination Category Sub-Category Detail Notes Category Not es Exam GENERAL APPEARANCE: Looks okay for her Skin: Neurological: Skin Rash along nasal lab ial folds has drastically improved Eyes Ears Nose Wearing nasal cannul a Mouth Hansen and mildly dry Trachea Midline Chest Normal Respiratory Normal Movements Auscultation Diffuse rhonchi, no wheezes Percussion Egophony Bronchophony Fremitus Mildly increased tac tile fremitus Whispered pectoriloquy Cardiac Regular rate and rhy thm Gastrointestinal Normal Vascular No edema Musculoskeletal Using a wheeled walk er Neurological Focal, intact Psychiatric Alert and oriented x 3 Mentation/Cognition Normal Oropharynx/Tongue Mallampati Class III . No candidiasis present. No postnasal drip today
--- OUTSIDE RECORDS SUMMARY | 2025-02-24 05:02 | XMS_ITS ---
Author Organization [facility] in [place] Address [address] [place] [address] Care Team Providers Care Edger Technician Name Role Phone BrianlaneyKaylene mitchell CNP Primary Care Provider Unavail rosalba Lopes Corbin Unavailable [phone] REASON FOR VISIT Breztri Refill Medications Medication SIG (Take, Route, Frequency, Duration) Notes Start Date End Date Status Breztri Aerosphere 160-9-4.8 MCG/ACT 2 puffs Inhalation Twice a day for 90 days Rinse after use Patient has myopathy and unable to generate enough inspiratory force for dry powder inhalers 02/24/2025 Active Encounters Encounter Location Date Provider Diagnosis Pulmonary Medicine [address] [address] 02/24/2025 Corbin Lopes Chronic obstructive pulmonary disease [...] enough inspiratory force for dry powder inhalers Next Appt Details Provider Name:Corbin Lopes, 05/01/2025 01:00:00 PM, [address] [place], [address], Provider Name:Corbin Lopes, 07/02/2025 10:30:00 AM, [address] [place], [address], Progress Notes * Diana CHAMPION ADOB: (69 yo F)Acc No.[id number]:02/24/2025 Patient: Diana AMARAL :1955 A ge:69 Y S ex:Female Address:[address] [place] [address], [address], [address] * Refills Stop Trelegy Ellipta Aerosol Powder [...] * true * Date: Generated for Walter márquez/Suman/eTransmitting on: 0 04/30/2025 12:40 PM EDT
--- OUTSIDE RECORDS SUMMARY | 2025-04-02 06:30 | XMS_ITS ---
Author Organization [facility] in [place] Address [address] [place] [address] Care Team Providers Care Can Filling Machine Operator Name Role Phone Rene CLEOKaylene Primary Care Provider Unavail able Corbin Lopes Unavailable [phone] Allergies No Known Allergies REASON FOR VISIT [...] Notes Tobacco use: Nonsmoker Vital Signs Temperature 96.8 degrees Fahrenheit 04/02/20 25 Blood pressure systolic 129 mm Hg 04/02/20 25 Blood pressure diastolic 66 mm Hg 025 Heart Rate 80 /min 04/02/2025 Respiratory Rate 20 /min 04/02/2025 Height 61 in 04/02/2025 Weight 235.0 lbs 04/02/2025 BMI 44.4 kg/m2 04/02/2025 Oximetry 95 % 04/02/2025 3L O2 Activity/Resting Encounters Encounter Location Date Provider Diagnosis Pulmonary Medicine [address] [address] 04/02/2025 Corbin Lopes Chronic obstructive pulmonary disease J44.9 ; Other pulmonary collapse J98.19 ; 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 [...] 04/02/2025 Critical illness myopathy (ICD-10 - G72.81) Nrqs-zv-wpst encounter performed with the patient to document [...] respiratory failure with hypoxia (ICD-10 - J96.11) Wvlw-dq-cqqi encounter performed with the patient to document [...] requiring O2. -Recommendations: Continue O2 ATC. 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 Compliance from 02/26/2025 - 03/27/2025 was reviewed. Doing awesome with NIV - despite hospitalization and rehab stint, she was still able to have her son bring in her NIV and she maintained excellent compliance at 28/30 days (93%). Residual AHI 4.1. No issues with mask, pressures, etc. No complaints of rash today. Critical illness myopathy Vows-gq-vqda encounter performed with the patient to document [...] to manage. Chronic respiratory failure with hypoxia Pnxd-vk-xgqr encounter performed with the patient to document [...] of requiring O2. -Recommendations: Continue O2 ATC. joint terminal attack controller (current) use of i nhaled steroids Patient [...] Details Follow Up: 3 Months, Reason: Dyspnea Provider Name:Corbinkrishna Ashley, 05/01/2025 01:00:00 PM, [address] [place], [address], Provider Name:Corbin Lopes, 07/02/2025 10:30:00 AM, [address] [place], [address], Procedure Notes * Category Sub-Category Detail Notes [...] Diana CHAMPION ADOB: 6 (69 yo F)Acc No.[id number]:04/02/2025 Follow Up Patient: Diana AMARAL Provider: Jona Lopes DO :1955 A ge:69 Y S ex:Female Date:04/02/2025 Address:[address] [place] [address], [address], [id number] Pcp:Kaylene López GLASS ENGRAVER Check In:10:10 AM ESTCheck O ut:11:03 AM EST Subjective: * Chief Complaints: * 2 m F/U - COPD * HPI: G eneral: Patient was admitted to [facility] 03/11/2025 - 03/16/2025 for pneumonia - I saw her inpatient in consultation. She then went to [facility] for rehab and was discharged from there [...] medication. Patient is under the care of [facility] Cardiology. * ROS: G eneral/Constitutional: Fatigue [...] Z86.16 History of COVID-19 Modified On:12/12/2023 Z79.51 joint terminal attack controller (current) use of inhaled steroids Modified On:12/12/2023 [...] 07/02/2024 * Hospitalization/Major Diagno stic Procedure: C ovid-19-[facility] 04/10/2023Sepsis/Pneumonia-[facility] 11/25/2023neumonia-[facility] 02/03/2024OPD Exacerbation-[facility] 04/11/2024OPD Exacerbation-[facility] 06/07/2024Hospital Acquired Pneumonia-[facility] 08/08/2024OPD Exacerbation, pneumonia-[facility] 5Asthma/COPD Exacerbation-[facility] 5COVID & Pseudomonas pneumonia-[facility] 01/08/2025HCAP - [facility] 03/11/2025 * Family History: F ather: COPD, [...] W alker, Wheelchair 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 [...] today. 3. C ritical illness myopathy Notes: Ylsl-gl-hfdd encounter performed with the patient to document [...] C hronic respiratory failure with hypoxia Notes: Ofyy-vi-bstu encounter performed with the patient to document [...] of Medical Reason: N ot indicated B TN ACTION PLAN Above Normal BMI Follow-up D ietary management education, guidance, and counseling R QA-Rkcprf-20/13/2023. * Follow Up: 3 Months (Reason: Dyspnea) * * Sign off status: Completed Visit Status: C HK (Check Out) true * Provider: Jona Lopes DO Date: 0 04/02/2025 Generated for Walter márquez/Suman/eTransmitting on: 0 04/30/2025 12:41 PM EDT History and Physical Notes * [...] medication. Patient is under the care of [facility] Cardiology. Examination Category Sub-Category Detail Notes Category Not es Exam GENERAL APPEARANCE: More healthy appearing that past several visits Skin: Neurological: Skin Rash along nasal lab ial folds has drastically improved Eyes Ears Nose Wearing nasal cannul a Mouth [place] and mildly dry Trachea Midline Chest Normal [...]
--- OUTSIDE RECORDS SUMMARY | 2025-04-30 12:40 | XMS_ITS | Encounter Summary ---
Author Organization [facility] Address [address] [facility] [place] [address] Care Team Providers Care Sizing Sponger Name Role Phone Ariella Mathis DO Unavailable [phone] Tapan Barboza MD Primary Care Provider [phone] Mae Reese GANTRY RIGGER Unavailable [phone] Encounter Details Date Type Department Care Team (Late st Contact Info) Description 12/10/2024 Abstract [facility] [address] [place] [id number] Mae Reese NP Social History Tobacco Use Types Packs/Day Years Used Date Smoking Tobacco: Never Passive Smoke Exposure: Never Smokeless Tobacco: Never Alcohol Use Standard Drinks/Week Comments Never 0 (1 standard drink = 0.6 oz pure alcohol) caffeine: more than 4 cups per day B1300 Health Literacy Answer Date Recor ded How often do you need to hav e someone help you when you read instructions, pamphlets, or other written material from your doctor or pharmacy? Never 11/25/2024 Humiliation, Afraid, Rape, and Kick questionnair e Answer Date Recorded Within the last year, have y ou been afraid of your partner or ex-partner? No 10/26/2023 Within the last year, have y ou been humiliated or emotionally abused in other ways by your partner or ex-partner? No Within the last year, have y ou been kicked, hit, slapped, or otherwise physically hurt by your partner or ex-partner? No 10/26/2023 Within the last year, have y ou been raped or forced to have any kind of sexual activity by your partner or ex-partner? No 10/26/2023 Social Connection and Isolat ion Panel [NHANES] Answer Date Recorded In a typical week, how many times do you talk on the phone with family, friends, or neighbors? More than three times a week 11/25/2024 How often do you get togethe r with friends or relatives? More than three times a week 11/25/2024 How often do you attend [facility] or jew services? More than 4 times per year 11/25/2024 Do you belong to any clubs o r organizations such as gnosticist groups, unions, fraternal or athletic groups, or school groups? No 11/25/2024 How often do you attend meet ings of the clubs or organizations you belong to? Never 11/25/2024 Are you , , di vorced, , never , or living with a partner? 11/25/2024 AUDIT-C Answer Date Recorded Q1: How often do you have a drink containing alcohol? Never 11/25/2024 Q2: How many drinks containi ng alcohol do you have on a typical day when you are drinking? Patient does not drink Q3: How often do you have si x or more drinks on one occasion? Never 11/25/2024 Overall Financial Resource Strain (CARDIA) Answe r Date Recorded How hard is it for you to pa y for the very basics like food, housing, medical care, and heating? Somewhat hard 11/25/2024 PHQ-2 Answer Date Recorded Patient Health Questionnaire-2 Score 0 07/11/2024 [facility] Model of Occupat ional Health - Occupational Stress Questionnaire Answer Date Recorded Do you feel stress - tense, restless, nervous, or anxious, or unable to sleep at night because your mind is troubled all the time - these days? Only a little 11/25/2024 Exercise Vital Sign Answer Date Recorde d On average, how many days pe r week do you engage in moderate to strenuous exercise (like a brisk walk)? 6 days 11/25/2024 On average, how many minutes do you engage in exercise at this level? 30 min 11/25/2024 Hunger Vital Sign Answer Date Recorded Within the past 12 months, y ou worried that your food would run out before you got the money to buy more. Never true 11/25/19 25 Within the past 12 months, t he food you bought just didn't last and you didn't have money to get more. Never true 11/25/2024 PRAPARE - Transportation Answer Date Re corded In the past 12 months, has l ack of transportation kept you from medical appointments or from getting medications? No 11/07 In the past 12 months, has l ack of transportation kept you from meetings, work, or from getting things needed for daily living? No 11/25/2024 Housing Stability Vital Sign Answer Dhruv e Recorded In the last 12 months, was t here a time when you were not able to pay the mortgage or rent on time? No 10/26/2023 In the last 12 months, how many places have you lived? 1 10/26/2023 In the last 12 months, was t here a time when you did not have a steady place to sleep or slept in a [place] (including now)? No 10/26/2023 Housing Stability Vital Sign Answer Dhruv e Recorded In the last 12 months, was t here a time when you were not able to pay the mortgage or rent on time? No 11/25/2024 In the past 12 months, how m any times have you moved where you were living? 0 11/25/2024 At any time in the past 12 m [facility], were you homeless or living in a [place] facility (including now)? No 11/25/2024 Comments Unknown Sex and Gender Information Value Date Recorded Sex Assigned at Not on file Legal Sex Female 7:03 PM EDT Gender Identity Not on file Sexual Orientation Not on file documented as of this encounter Plan of Treatment Upcoming Encounters Date Type Department Care Team (Late st Contact Info) Description 05/19/2025 9:00 AM EDT Office Visit [facility] [address] [place] [address] Kaylene López NP [address] [place] [phone] 06/17/2025 3:05 PM EDT Office Visit [facility] [address] [place] [address] Denise Lazo MD [address] [place] [address] 12/15/2026 9:00 AM EST Office Visit [facility] [address] [place] [address] Yuri Bowers PA [address] [place], [place] [phone] documented as of this encounter Goals Goal Patient Goal Type Associated Problems Recent Progress Patient-Stated? Author Help patient manage antidepressant medication Care Plan Patient on antidepressant monitoring plan Katerina Carrington documented as of this encounter Visit Diagnoses Not on filedocumented in this encounter Additional Health Concerns Active Problems Noted Date Diagnosed Date Patient on antidepressant monitoring plan 2023 Assessment Noted Time PHQ-9 Depression Total Score: 7 11/02/20 23 3:03 PM EST documented as of this encounter Care Teams Sizing Sponger Relationship Specialty Start Date End Date Tapan Barboza MD [address] [place] [phone] PCP - General Family Medicine 06/10/24 Ariella Mathis DO [address] [place] [address] Referring Physician Neurology 01/02/24 Mae Reese NP [address] [place] [phone] Nurse Practitioner Family Medicine 06/10/24 documented as of this encounter
--- OUTSIDE RECORDS SUMMARY | 2025-04-30 12:40 | XMS_ITS | Encounter Summary ---
Author Organization [facility] Address [address] [facility] [place] [address] Care Team Providers Care Insurance Verify Rep Name Role Phone Shaikh BONNY Ohara Primary Care Provider [phone] Ariella Mathis DO Unavailable [phone] Tapan Barboza MD Primary Care Provider [phone] Mae Reese STOPPING BUILDER Unavailable [phone] Encounter Details Date Type Department Care Team (Late st Contact Info) Description 02/03/2024 Clinisync Result Encounter [facility] External Department Unsolicited Provider, Generic External Data Social History Tobacco Use Types Packs/Day Years Used Date Smoking Tobacco: Never Passive Smoke Exposure: Never Smokeless Tobacco: Never Alcohol Use Standard Drinks/Week Comments Never 0 (1 standard drink = 0.6 oz pure alcohol) caffeine: more than 4 cups per day Humiliation, Afraid, Rape, and Kick questionnair e [...] neighbors? More than three times a week 10/26/2023 How often do you get togethe r with friends or relatives? More than three times a week 10/26/2023 How often do you attend chur or roman catholic services? More than 4 times per year 10/26/2023 Do you belong to any clubs o r organizations such as hinduism groups, unions, fraternal or athletic groups, or school groups? No 10/26/2023 How often do you attend meet ings of the clubs or organizations you belong to? Never 10/26/2023 Are you , , di vorced, , never , or living with a partner? 10/26/2023 AUDIT-C Answer Date Recorded Q1: How often do you have a drink containing alcohol? Never 10/26/2023 Q2: How many drinks containi ng alcohol do you have on a typical day when you are drinking? Patient does not drink Q3: How often do you have si x or more drinks on one occasion? Never 10/26/2023 Overall Financial Resource Strain (CARDIA) Answe r Date Recorded How hard is it for you to pa y for the very basics like food, housing, medical care, and heating? Not very hard 10/26/2023 PHQ-2 Answer Date Recorded Patient Health Questionnaire-2 Score 0 01/25/2024 [facility] Occupat ional Health - Occupational Stress Questionnaire Answer Date Recorded Do you feel stress - tense, restless, nervous, or anxious, or unable to sleep at night because your mind is troubled all the time - these days? To some extent 10/26/2023 Exercise Vital Sign Answer Date Recorde d On average, how many days pe r week do you engage in moderate to strenuous exercise (like a brisk walk)? 0 days 10/26/2023 On average, how many minutes do you engage in exercise at this level? 30 min 10/26/2023 Hunger Vital Sign Answer Date Recorded Within the past 12 months, y ou worried that your food would run out before you got the money to buy more. Never true 10/26/20 23 Within the past 12 months, t he food you bought just didn't last and you didn't have money to get more. Never true 10/26/2023 PRAPARE - Transportation Answer Date Re corded In the past 12 months, has l ack of transportation kept you from medical appointments or from getting medications? No 10/07 In the past 12 months, has l ack of transportation kept you from meetings, work, or from getting things needed for daily living? No 10/26/2023 Housing Stability Vital Sign Answer [...] place to sleep or slept in a skilled nursing (including now)? No 10/26/2023 Comments Unknown Sex and Gender Information Value Date Recorded Sex Assigned at Not on file Legal Sex Female 7:03 PM EDT Gender Identity Not on file Sexual Orientation Not on file documented as of this encounter Plan of Treatment Upcoming Encounters Date Type Department Care Team (Late st Contact Info) Description 05/19/2025 9:00 AM EDT Office Visit [facility] [address] [place] [address] Kaylene López NP [address] [place] [address] 06/17/2025 3:05 PM EDT Office Visit [facility] [address] [place] [address] Denise Lazo MD [address] [place] [address] 12/15/2026 9:00 AM EST Office Visit [facility] [address] [place] [address] Yuri Bowers PA [address] [facility] [address] [place] [address] documented as of this encounter Procedures Procedure Name Priority Date/Time Associated Diagnosis Comments XR CHEST 1 V 02/03/2024 9:41 AM EDT documented in this encounter Results * XR CHEST 1 V (02/03/2024 9:41 AM EDT) Anatomical Region Laterality Modality Other 02/03/2024 9:41 AM EDT Narrative 02/03/2024 9:43 AM EDT [address] [address] XRay Report Signed Patient: DIANA CHAMPION MR#: [id number] : 1955 Acct:[id number] Age/Sex: 68 / F ADM Date: Loc: ER Attending Dr: Ordering Physician: Tere Rodriguez Date of Service: 02/03/24 Procedure(s): XR chest 1V Accession Number(s): [id number] cc: Shaikh Eva Ohara; Tere Rodriguez [address] [address] Patient Name: DIANA CHAMPION MRN: [id number] date: 1955 Sex: F Assigned Patient Location: ED.MAIN Current Patient Location: ER Accession/Order Number: [id number] Exam Date: 02/03/2024 09:15 Report Date: 02/03/2024 09:41 At the request of: TERE RODRIGUEZ Procedure: XR chest 1V EXAM: XR chest 1V HISTORY: sob COMPARISON: Chest x-ray 11/28/[address] 11/25/2023. TECHNIQUE: Portable AP upright chest x-ray. FINDINGS: Right lung is well visualized clear. Left upper and mid lung clear. Poor visualization of left lung base retrocardiac area due to overlying soft tissues and patient size/body habitus. Cardiomediastinal contours prominent but unchanged. No pleural effusion. No pneumothorax. XR/XR chest 1V IMPRESSION: No definite acute findings seen although there is poor visualization of the left lung base retrocardiac area. The abnormal lung density seen on earlier chest x-ray and CT appear to have cleared elsewhere. Electronically authenticated by: BARBARA BOUDREAUX Date: 02/03/2024 09:41 Dictated By: Barbara Boudreaux M.D. Signed By: 02/03/24942 DD/ 0 TD/TT: Boat Rental Clerk: Procedure Note Radiology, Radiologist, MD - 02/07/2024 [place] [address] XRay Report Signed Patient: DIANA CHAMPION AMR#: [id number] : 1955cct:[id number] Age/Sex: 68 / FADM Date: Loc: ER Attending Dr: Ordering Physician: Tere Rodriguez Date of Service: 02/03/24 Procedure(s): XR chest 1V Accession Number(s): [id number] cc: Shaikh Eva Ohara; Tere Rodriguez The [address] [address] Patient Name: DIANA CHAMPION MRN: [id number] date: 1955 Sex: F Assigned Patient Location: ED.MAIN Current Patient Location: ER Accession/Order Number: [id number] Exam Date: 02/03/2024 09:15 Report Date: 02/03/2024 09:41 At the request of: TERE RODRIGUEZ Procedure: XR chest 1V EXAM: XR chest 1V HISTORY: sob COMPARISON: Chest x-ray 11/28/[address] 11/25/2023. TECHNIQUE: Portable AP upright chest x-ray. FINDINGS: Right lung is well visualized clear. Left upper and mid lungclear. Poor visualization of left lung base retrocardiac area due to overlyingsoft tissues and patient size/body habitus. Cardiomediastinal contours prominent but unchanged. No pleural effusion.No pneumothorax. XR/XR chest 1V IMPRESSION: No definite acute findings seen although there is poor visualization ofthe left lung base retrocardiac area. The abnormal lung density seen on earlier chest x-ray and CT appear tohave cleared elsewhere. Electronically authenticated by: BARBARA BOUDREAUX Date: 02/03/2024 09:41 Dictated By: Barbara Boudreaux M.D. Signed By:02/03/2443 DD/ 0 TD/TT: Boat Rental Clerk: us Generic External Data Provider [facility] Final Result documented in this encounter Visit Diagnoses Not on filedocumented in this encounter Additional Health Concerns Assessment Noted Time PHQ-9 Depression Total Score: 7 11/02/20 23 3:03 PM EST documented as of this encounter Care Teams Insurance Verify Rep Relationship Specialty Start Date End Date Shaikh Ohara MD [address] [place] [address] PCP - General Internal Medicine 12/28/23 06/09/24 Tapan Barboza MD [address] [place] [address] PCP - General Family Medicine 06/10/24 Ariella Mathis DO [address] [place] [address] Referring Physician Neurology 01/02/24 Mae Reese NP [address] [place] [address] Nurse Practitioner Family Medicine 06/10/24 documented as of this encounter
--- OUTSIDE RECORDS SUMMARY | 2025-04-30 12:40 | XMS_ITS | Encounter Summary ---
Author Organization [facility] Address [facility] [place] [address] Care Team Providers Care Solar Sales Ambassador Name Role Phone Unavailable Primary Care Provider Unavailabl e Source Comments In the event this information is protected by the Federal Confidentiality of Alcohol and Drug AbusePatient Records regulations: The Federal rules restrict any use of the information to criminally investigate or prosecute any alcohol or drug abuse patient.[facility] Encounter Details Date Type Department Care Team (Late st Contact Info) Description 2021 [place] [address] Provider, f Medicare Coverage of Physical Exams Social History Tobacco Use Types Packs/Day Years Used Date Smoking Tobacco: Never Smokeless Tobacco: Never Alcohol Use Standard Drinks/Week Comments Never 0 (1 standard drink = 0.6 oz pur e alcohol) AUDIT-C Answer Date Recorded Q1: How often do you have a drink containing alc ohol? Never 09/11/2020 Average Number of Drinks Not on file 020 Frequency of Binge Drinking Not on file 04/2020 Area Deprivation Index Answer Date Brad rded National Score (1-100), lower number is lower ri sk Not on file 01/20/2021 State Score (1-10), lower number is lower risk N ot on file 01/20/2021 Data from: https://www.neighborhoodatlas.medicine.[facility].edu/. Last address used for calculation Not on file 01/20/2021 Comments No Sex and Gender Information Value Date Recorded Sex Assigned at Not on file Legal Sex Female 10:53 AM EST Gender Identity Not on file Sexual Orientation Not on file documented as of this encounter Plan of Treatment Not on file documented as of this encounter Visit Diagnoses Not on filedocumented in this encounter
--- OUTSIDE RECORDS SUMMARY | 2025-04-30 12:40 | XMS_ITS | Encounter Summary ---
Author Organization [facility] Address [address] [place] [address] Care Team Providers Care Cardiac Cath Lab Radiology Technologist Name Role Phone Shaikh BONNY Ohara Primary Care Provider [phone] Ariella Mathis DO Unavailable [phone] Tapan Barboza MD Primary Care Provider Mae Reese ORGAN BUILDER Unavailable [phone] Encounter Details Date Type Department Care Team (Late st Contact Info) Description 01/26/2024 Clinisync Result Encounter [facility] External Department Unsolicited Shaikh Ohara MD [address] [place] [id number] Social History Tobacco Use Types Packs/Day Years [...] week 10/26/2023 How often do you attend [facility] or buddhism services? More than 4 times per year 10/26/2023 Do you belong to any clubs o r organizations such as islam groups, unions, fraternal or athletic groups, or [...] Recorded Patient Health Questionnaire-2 Score 0 01/25/2024 [facility] of Occupat ional Health - Occupational Stress [...] place to sleep or slept in a custodial (including now)? No 10/26/2023 Comments Unknown Sex and Gender Information Value Date Recorded Sex Assigned at Not on file Legal Sex Female 7:03 PM EDT Gender Identity Not on file Sexual Orientation Not on file documented as of this encounter Plan of Treatment Upcoming Encounters Date Type Department Care Team (Late st Contact Info) Description 05/19/2025 9:00 AM EDT Office Visit [facility] [address] [place] [address] Kaylene López NP [address] [place] [address] 06/17/2025 3:05 PM EDT Office Visit [facility] [address] [place] [address] Denise Lazo MD [address] [place] [address] 12/15/2026 9:00 AM EST Office Visit [facility] [address] [facility] [place] [address] Yuri Bowers PA [address] [facility] [address] [place] [address] documented as of this encounter Procedures Procedure Name Priority Date/Time Associated Diagnosis Comments XR LUMBAR SPINE 2 OR 3V 01/26/2024 7:39 AM EDT documented in this encounter Results * XR LUMBAR SPINE 2 OR 3V (01/26/2024 7:39 AM EDT) Anatomical Region Laterality Modality Radiographic Melania ging 01/26/2024 7:39 AM EDT Narrative 01/26/2024 7:41 [place] [address] XRay Report Signed Patient: DIANA CHAMPION MR#: [id number] : 1955 Acct:[id number] Age/Sex: 68 / F ADM Date: 01/25/24 Loc: RAD Attending Dr: Shaikh Lev Velasquez Ordering Physician: Shaikh Eva Ohara Date of Service: 01/25/24 Procedure(s): XR lumbar spine 2-3V Accession Number(s): [id number] cc: Shaikh Eva Ohara [address] [address] Patient Name: DIANA CHAMPION MRN: [id number] date: 1955 Sex: F Assigned Patient Location: RAD Current Patient Location: Accession/Order Number: [id number] Exam Date: 01/25/2024 12:50 Report Date: 01/26/2024 07:39 At the request of: SHAIKH LEV Procedure: XR lumbar spine 2-3V EXAMINATION: XR lumbar spine 2-3V HISTORY: Chronic Bilateral Low Back Pain M54.50 COMPARISON: XR lumbar spine 06/30/2023 FINDINGS: BONES: Posterior mechanical fusion L5-S1 via bilateral pedicle screws and rods; no appreciable hardware fracture or loosening. Mild right convex curvature of lumbar spine. Grade 1 retrolisthesis of L1 on 2; unchanged. Moderate degenerative facet arthropathy throughout the lumbar spine. DISC SPACES: Intervertebral disc spacer L5-S1. Multilevel mild narrowing. PARASPINOUS: Negative. No paraspinous abnormality is seen. OTHER: Negative. XR/XR lumbar spine 2-3V IMPRESSION: 1. No appreciable acute abnormality. 2. Stable surgical changes without evidence of hardware failure. 3. Moderate degenerative changes of lumbar spine; grossly stable. Electronically authenticated by: MICHAEL PATEL Date: 01/26/2024 07:39 Dictated By: Michael Patel M.D. Signed By: 01/26/24 0741 DD/ 0739 TD/TT: Car Barn Laborer: Procedure Note Radiology, Radiologist, MD - 01/26/2024 [place] [address] XRay Report Signed Patient: DIANA CHAMPION AMR#: [id number] : 1955cct:[id number] Age/Sex: 68 / FADM Date: 01/25/24 Loc: RAD Attending Dr: Shaikh Lev Velasquez Ordering Physician: Shaikh Eva Ohara Date of Service: 01/25/24 Procedure(s): XR lumbar spine 2-3V Accession Number(s): [id number] cc: Shaikh Eva Ohara The [address] [address] Patient Name: DIANA CHAMPION MRN: [id number] date: 1955 Sex: F Assigned Patient Location: [facility] Current Patient Location: Accession/Order Number: [id number] Exam Date: 01/25/2024 12:50 Report Date: 01/26/2024 07:39 At the request of: SHAIKH LEV Procedure: XR lumbar spine 2-3V EXAMINATION: XR lumbar spine 2-3V HISTORY: Chronic Bilateral Low Back Pain M54.50 COMPARISON: XR lumbar spine 06/30/2023 FINDINGS: BONES: Posterior mechanical fusion L5-S1 via bilateral pedicle screws and rods; no appreciable hardware fracture or loosening. Mild right convex curvatureof lumbar spine. Grade 1 retrolisthesis of L1 on 2; unchanged. Moderate degenerative facet arthropathy throughout the lumbar spine. DISC SPACES: Intervertebral disc spacer L5-S1. Multilevel mild narrowing. PARASPINOUS: Negative. No paraspinous abnormality is seen. OTHER: Negative. XR/XR lumbar spine 2-3V IMPRESSION: 1. No appreciable acute abnormality. 2. Stable surgical changes without evidence of hardware failure. 3. Moderate degenerative changes of lumbar spine; grossly stable. Electronically authenticated by: MICHAEL PATEL Date: 01/26/2024 07:39 Dictated By: Michael Patel M.D. Signed By:01/26/24 0741 DD/ 0739 TD/TT: Car Barn Laborer: us Shaikh Lev DRAPER IMG XR PROCEDURES Final Result documented in this encounter Visit Diagnoses Not on filedocumented in this encounter Additional Health Concerns Assessment Noted Time PHQ-9 Depression Total Score: 7 11/02/20 23 3:03 PM EST documented as of this encounter Care Teams Cardiac Cath Lab Radiology Technologist Relationship Specialty Start Date End Date Shaikh Ohara MD [address] [place] [address] PCP - General Internal Medicine 12/28/23 06/09/24 Tapan Barboza MD [address] [place] [address] PCP - General Family Medicine 06/10/24 Ariella Mathis DO [address] [place] [address] Referring Physician Neurology 01/02/24 Mae Reese NP [address] [place] [address] Nurse Practitioner Family Medicine 06/10/24 documented as of this encounter
--- OUTSIDE RECORDS SUMMARY | 2025-04-30 12:40 | XMS_ITS | Encounter Summary ---
Author Organization [facility] Address [address] [facility] [place] [address] Care Team Providers Care Financial Planning Advisor Name Role Phone Shaikh BONNY Ohara Primary Care Provider [phone] Shaikh BONNY Ohara Primary Care Provider [phone] Ariella Mathis DO Unavailable [phone] Tapan Barboza MD Primary Care Provider [phone] Mae Reese GUEST LAUNDRY ATTENDANT Unavailable Encounter Details Date Type Department Care Team (Late st Contact Info) Description 10/25/2023 Clinisync Result Encounter [facility] External Department Unsolicited [...] How often do you attend chur or tenriism services? More than 4 times per year 10/26/2023 Do you belong to any clubs o r organizations such as jewish groups, unions, fraPrevoty or athletic groups, or school groups? No [...] care, and heating? Not very hard 10/26/2023 [facility] of Occupat ional Health - Occupational Stress [...] place to sleep or slept in a mcc (including now)? No 10/26/2023 Comments Unknown Sex and Gender Information Value Date Recorded Sex Assigned at Not on file Legal Sex Female 7:03 PM EDT Gender Identity Not on file Sexual Orientation Not on file documented as of this encounter Functional Status * Audit-C Score Answer Date of Assessment Author 0 10/26/2023 8:47 AM EST Mychart, Generic * Q1: How often do you have a drink containing alcohol? Answer Date of Assessment Author Never 10/26/2023 8:47 AM EST Mychart, Generic * Q2: How many drinks containing alcohol do you have on a typical day when you are drinking? Answer Date of Assessment Author Patient does not drink 10/26/2023 8:47 AM EST My chart, Generic * Q3: How often do you have six or more drinks on one occasion? Answer Date of Assessment Author Never 10/26/2023 8:47 AM EST Mychart, Generic documented as of this encounter Plan of Treatment Upcoming Encounters Date Type Department Care Team (Late st Contact Info) Description 05/19/2025 9:00 AM EDT Office Visit [facility] [address] [place] [address] Kaylene López, RIKKI [address] [place] [address] 06/17/2025 3:05 PM EDT Office Visit [facility] [address] [place] [address] Denise Lazo MD [address] [place] [address] 12/15/2026 9:00 AM EST Office Visit [facility] [address] [place] [place] [address] Yuri Bowers PA [address] [place] [address] documented as of this encounter Procedures Procedure Name Priority Date/Time Associated Diagnosis Comments XR CHEST 2V 10/25/2023 9:45 AM EST documented in this encounter Results * XR CHEST 2V (10/25/2023 9:45 AM EST) Anatomical Region Laterality Modality Other 10/25/2023 9:45 AM EST Narrative 10/25/2023 9:48 AM EST The [address] [address] XRay Report Signed Patient: DIANA CHAMPION MR#: [id number] : 1955 Acct:[id number] Age/Sex: 68 / F ADM Date: 10/25/23 Loc: RAD Attending Dr: Bo Mcclain D.O. Ordering Physician: Bo Mcclain D.O. Date of Service: 10/25/23 Procedure(s): XR chest 2V Accession Number(s): [id number] cc: Shaikh Eva Ohara; Bo Mcclain D.O. [address] [address] Patient Name: DIANA CHAMPION MRN: [id number] date: 1955 Sex: F Assigned Patient Location: RAD Current Patient Location: RAD Accession/Order Number: [id number] Exam Date: 10/25/2023 09:31 Report Date: 10/25/2023 09:45 At the request of: BO MCCLAIN Procedure: XR chest 2V EXAM: Chest x-ray HISTORY: . acute bronchitis J20.9 . COMPARISON: None. TECHNIQUE: Frontal and lateral chest FINDINGS: Heart is normal in size. There is prominence of the bronchovascular markings. Lungs are free of focal infiltrates. No effusions are noted. Spondylosis of the spine is noted. XR/XR chest 2V IMPRESSION: Prominence of the bronchovascular markings suggesting bronchitis. Less likely would be an interstitial pneumonitis. Clinical correlation is suggested. Electronically authenticated by: BRITTANY STEPHENS Date: 10/25/2023 09:45 Dictated By: Brittany Stephens M.D. Signed By: 10/25/23947 DD/ 4 TD/TT: Precision Printing Worker: Procedure Note Radiology, Radiologist, MD - 10/25/2023 [place] [address] XRay Report Signed Patient: DIANA CHAMPION AMR#: [id number] : 1955cct:[id number] Age/Sex: 68 / FADM Date: 10/25/23 Loc: RAD Attending Dr: Bo Mcclain D.O. Ordering Physician: Bo Mcclain D.O. Date of Service: 10/25/23 Procedure(s): XR chest 2V Accession Number(s): [id number] cc: Shaikh Eva Ohara; Bo Mcclain D.O. The [address] [address] Patient Name: DIANA CHAMPION MRN: [id number] date: 1955 Sex: F Assigned Patient Location: RAD Current Patient Location: RAD Accession/Order Number: [id number] Exam Date: 10/25/2023 09:31 Report Date: 10/25/2023 09:45 At the request of: BO MCCLAIN Procedure: XR chest 2V EXAM: Chest x-ray HISTORY: . acute bronchitis J20.9 . COMPARISON: None. TECHNIQUE: Frontal and lateral chest FINDINGS: Heart is normal in size. There is prominence of thebronchovascular markings. Lungs are free of focal infiltrates. No effusions are noted. Spondylosis of the spine is noted. XR/XR chest 2V IMPRESSION: Prominence of the bronchovascular markings suggesting bronchitis. Lesslikely would be an interstitial pneumonitis. Clinical correlation is suggested. Electronically authenticated by: BRITTANY STEPHENS Date: 10/25/2023 09:45 Dictated By: Brittany Stephens M.D. Signed By:10/25/2348 DD/ 4 TD/TT: Precision Printing Worker: us Generic External Data Provider [facility] Final Result documented in this encounter Visit Diagnoses Not on filedocumented in this encounter Care Teams Financial Planning Advisor Relationship Specialty Start Date End Date Shaikh Ohara MD PCP - General Internal Medicine 11/06/22 12/27/23 Shaikh Ohara MD [address] [place] [address] PCP - General Internal Medicine 12/28/23 06/09/24 Tapan Barboza MD [address] [place] [address] PCP - General Family Medicine 06/10/24 Ariella Mathis DO [address] [place] [address] Referring Physician Neurology 01/02/24 Mae Reese NP [address] [place] [address] Nurse Practitioner Family Medicine 06/10/24 documented as of this encounter
--- OUTSIDE RECORDS SUMMARY | 2025-04-30 12:40 | XMS_ITS | Encounter Summary ---
Author Organization [facility] Address [address] [place] [address] Care Team Providers Care Slurry Control Tender Name Role Phone Ariella Mathis DO Unavailable [phone] Tapan Barboza MD Primary Care Provider [phone] Mae Reese PLASTIC FRAME INSERTER Unavailable [phone] Encounter Details Date Type Department Care Team (Late st Contact Info) Description 08/12/2024 Orders Only [facility] [address] [place] [phone] Shaikh Ohara MD [address] [place] [address] Social History Tobacco Use Types Packs/Day Years [...] week 10/26/2023 How often do you attend [facility] or baptist services? More than 4 times per year 10/26/2023 Do you belong to any clubs o r organizations such as jainism groups, unions, fraternal or athletic groups, or [...] Recorded Patient Health Questionnaire-2 Score 0 07/11/2024 [facility] [place] of Occupat ional Health - Occupational Stress [...] place to sleep or slept in a assisted (including now)? No 10/26/2023 Comments Unknown Sex [...] Visit [facility] [address] [place] [phone] Kaylene López NP [address] [place] [phone] 06/17/2025 3:05 PM EDT Office Visit [facility] [address] [place] [address] Denise Lazo MD [address] [place] [address] 12/15/2026 9:00 AM EST Office Visit [facility] [address] [place] [address] Yuri Bowers PA [address] [place] [address] documented as of this encounter Goals Goal Patient Goal Type Associated Problems Recent Progress Patient-Stated? Author Help patient manage antidepressant medication Care Plan Patient on antidepressant monitoring plan No Katerina Lopez documented as of this encounter Procedures Procedure Name Priority Date/Time Associated Diagnosis Comments XR CHEST 1 VIEW Routine 08/12/2024 9:15 AM EDT documented in this encounter Results * XR chest 1 view (08/12/2024 9:15 AM EDT) Anatomical Region Laterality Modality Chest Radiographic Melania ging Shaikh Lev DRAPER IMG XR PROCEDURES Final Result documented in this encounter Visit Diagnoses Not on filedocumented in this encounter Additional Health Concerns Active Problems Noted Date Diagnosed Date Patient on antidepressant monitoring plan 2023 Assessment Noted Time PHQ-9 Depression Total Score: 7 11/02/20 23 3:03 PM EST documented as of this encounter Care Teams Slurry Control Tender Relationship Specialty Start Date End Date Tapan Barboza MD [address] [place] [address] PCP - General Family Medicine 06/10/24 Ariella Mathis DO [address] [place] [address] Referring Physician Neurology 01/02/24 Mae Reese NP [address] [place] [address] Nurse Practitioner Family Medicine 06/10/24 documented as of this encounter
--- OUTSIDE RECORDS SUMMARY | 2025-04-30 12:40 | XMS_ITS | Encounter Summary ---
Author Organization [facility] Address [address] [place] [address] Care Team Providers Care Electronics Technology Instructor Name Role Phone Unavailable Primary Care Provider Unavailabl e Source Comments In the event this information is protected by the Federal Confidentiality of Alcohol and Drug AbusePatient Records regulations: The Federal rules restrict any use of the information to criminally investigate or prosecute any alcohol or drug abuse patient.[facility] Encounter Details Date Type Department Care Team (Latest Contact Info) Description 09/11/2020 H&P External-NonCCF Provider, External, JASWANT Do not enter address information under generic External Provider. Social History Tobacco Use Types Packs/Day Years [...] of Binge Drinking Not on file 04/2020 Comments Unknown Sex and Gender Information Value Date Recorded Sex Assigned at Not on file Legal Sex Female 10:53 AM EST Gender Identity Not on file Sexual Orientation Not on file documented as of this encounter Functional Status documented as of this encounter Plan of Treatment Not on file documented as of this encounter Visit Diagnoses Not on filedocumented in this encounter
--- OUTSIDE RECORDS SUMMARY | 2025-04-30 12:40 | XMS_ITS | Clinical Summary ---
Author Organization [facility] Address [facility] [place] [address] Care Team Providers Care Hydroelectric Machinery Mechanic Helper Name Role Phone Unavailable Primary Care Provider Unavailabl e Allergies No known active allergies Medications albuterol HFA (PROVENTIL HFA, VENTOLIN HFA) 90 mcg/actuation inhaler Inhale 2 Puffs as instructed every 6 hours as needed. Active amLODIPine (NORVASC) 10 mg tablet Take 10 mg by mouth. Active clonazePAM (KLONOPIN) 0.5 mg tablet Take 0.5 mg by mouth. Active cyclobenzaprine (FLEXERIL) 10 mg tablet Take 10 mg by mouth. Active famotidine (PEPCID) 20 mg tablet Take 20 mg by mouth. Active omeprazole (PRILOSEC) 20 mg capsule Take 20 mg by mouth. Active PARoxetine (PAXIL) 40 mg tablet Take 40 mg by mouth. Active spironolactone- hctz 25/25 (ALDACTAZIDE) 25-25 mg per tablet Take 25 mg by mouth. 9 Active traZODone (DESYREL) 50 mg tablet Take 50 mg by mouth. 9 Active aspirin, enteric coated (ASPIRIN, ENTERIC COATED) 325 mg EC tablet q 24 HR. Active ferrous sulfate 325 mg (65 mg iron) tablet Take 325 mg by mouth. Active Ipratropium (ATROVENT) 17 mcg/actuation inhaler Atrovent HFA 17 mcg/actuation aerosol inhaler Active montelukast (SINGULAIR) 10 mg tablet montelukast 10 mg tablet 9 Active therapeutic multivitamin-mi nerals (THERA-M PLUS) 9 mg iron-400 mcg tablet Take 1 tablet by mouth. Active oxybutynin XL (DITROPAN XL) 5 mg 24 hr tablet q 24 HR. Acti ve hydroCHLOROthia zide (HYDRODIURIL, ESIDRIX) 25 mg tablet Take 25 mg by mouth once daily. Active Active Problems No known active problems Immunizations Immunization Administration Dates Next Due influenza (IIV4) vaccine, ag e 6 mo - 64 yr, quadrivalent, PF (AFLURIA, FLUARIX, FLULAVAL, FLUZONE) 2020 pneumococcal polysaccharide (PPV23) vaccine, 23 valent (PNEUMOVAX 23) 10/19/2018 Social History Tobacco Use Types Packs/Day Years [...] N ot on file 01/20/2021 Data from: https://www.[email or web address].medicine.[email or web address].edu/. Last address used for calculation Not on file 01/20/2021 Comments No Sex and Gender Information Value Date Recorded Sex Assigned at Not on file Legal Sex Female 10:53 AM EST Gender Identity Not on file Sexual Orientation Not on file Last Filed Vital Signs Vital Sign Reading Time Taken Comments Blood Pressure 164/76 09/23/2020 2:26 PM EST Pulse 66 09/23/2020 2:26 PM EST Temperature 36.4 C (97.5 F) 09/23/2020 2:26 PM EST Respiratory Rate 16 09/23/2020 2:26 PM EST Oxygen Saturation 96% 09/23/2020 2:26 PM EST Inhaled Oxygen Concentration - - Weight 102.1 kg (225 lb) 09/23/2020 2:26 PM EST Height 162.6 cm (5' 4 ) 09/23/2020 2:26 PM EST Body Mass Index 38.62 09/23/2020 2:26 PM EST Plan of Treatment Health Maintenance Due Date Last Done Comments Anxiety Screening 1974 Depression Screening 1974 Hepatitis C Screening 1974 DTaP,Tdap,Td Vaccine (1 - Tdap) [address] Colonography 2001 Cologuard (FIT-DNA) 2001 Colonoscopy 2001 Colorectal Cancer Screening 2001 Fecal Occult Blood 2001 Lipid Screening 2001 Sigmoidoscopy 2001 Shingrix Vaccine (1 of 2) 2006 Pneumococcal Vaccine: 50+ (2 of 2 - PCV) 10/19/2019 10/19/2018 Bone Density Screening 2021 Diabetes Screening 10/02/2021 10/02/2018 Covid-19 Vaccine ( - 2023- season) 2024 Advance Directive Discussion 11/06/2024 Influenza Vaccine (Season Ended) 2025 08/03/20 RSV Vaccine (1 - 1-dose 75+ series) 2031 Insurance BY [facility]
--- OUTSIDE RECORDS SUMMARY | 2025-04-30 12:40 | XMS_ITS | Encounter Summary ---
Author Organization [facility] Address [address] [place] [address] Care Team Providers Care Business Dean Name Role Phone Ariella Mathis DO Unavailable [phone] Tapan Barboza MD Primary Care Provider [phone] Mae Reese SCHOOL BUS INSPECTOR Unavailable [phone] Encounter Details Date Type Department Care Team (Late st Contact Info) Description 07/15/2024 Orders Only [facility] [address] [place] [phone] Opioid use Social History Tobacco Use Types Packs/Day Years [...] week 10/26/2023 How often do you attend [facility] or mandaen services? More than 4 times per year 10/26/2023 Do you belong to any clubs o r organizations such as yarsani groups, unions, fraternal or athletic groups, or [...] Recorded Patient Health Questionnaire-2 Score 0 07/11/2024 [facility] of Occupat ional Health - Occupational Stress [...] Office Visit [facility] [address] [place] [address] Kaylene López NP [address] [place] [address] 06/17/2025 3:05 PM EDT Office Visit [facility] [address] [place] [address] Denise Lazo MD [address] [place] [address] 12/15/2026 9:00 AM EST Office Visit [facility] [address] [place] [address] Yuri Bowers PA [address] [place] [address] [place] [address] documented as of this encounter Visit Diagnoses Diagnosis Opioid use documented in this encounter Additional Health Concerns Assessment Noted Time PHQ-9 Depression Total Score: 7 11/02/20 23 3:03 PM EST documented as of this encounter Care Teams Business Dean Relationship Specialty Start Date End Date Tapan Barboza MD [address] [place] [phone] PCP - General Family Medicine 06/10/24 Ariella Mathis DO [address] [place] [address] Referring Physician Neurology 01/02/24 Mae Reese NP [address] [place] [address] Nurse Practitioner Family Medicine 06/10/24 documented as of this encounter
--- OUTSIDE RECORDS SUMMARY | 2025-04-30 12:41 | XMS_ITS | Encounter Summary ---
Author Organization [facility] Address [address] [place] [place] [address] Care Team Providers Care Gas Regulator Repairer Helper Name Role Phone Ariella Mathis DO Unavailable [phone] Tapan Barboza MD Primary Care Provider [phone] Mae Reese CONTENT EDITOR Unavailable [phone] Encounter Details Date Type Department Care Team (Late st Contact Info) Description 04/23/2025 Refill [facility] [address] [place] [phone] Kaylene López NP [address] [place] [address] Moderate episode of recurrent major depressive disorder (HCC) (Primary Dx) Social History Tobacco Use Types Packs/Day Years [...] week 11/25/2024 How often do you attend [facility] or confucianist services? More than 4 times per year 11/25/2024 Do you belong to any clubs o r organizations such as episcopalian groups, unions, fraternal or athletic groups, or [...] Recorded Patient Health Questionnaire-2 Score 0 07/11/2024 [facility] - Occupational Stress Questionnaire Answer Date [...] money to buy more. Never true 11/25/19 Within the past 12 months, t he [...] place to sleep or slept in a residential (including now)? No 10/26/2023 Housing Stability Vital Sign Answer Dhruv e Recorded In the last 12 months, was t here a time when you were not able to pay the mortgage or rent on time? No 11/25/2024 In the past 12 months, how m any times have you moved where you were living? 0 11/25/2024 At any time in the past 12 m [facility], were you homeless or living in a residential (including now)? No 11/25/2024 Comments Unknown Sex and Gender Information Value Date Recorded Sex Assigned at Not on file Legal Sex Female 7:03 PM EDT Gender Identity Not on file Sexual Orientation Not on file documented as of this encounter Plan of Treatment Upcoming Encounters Date Type Department Care Team (Late st Contact Info) Description 05/19/2025 9:00 AM EDT Office Visit [facility] [address] [place] [phone] Kaylene López NP [address] [place] [address] 06/17/2025 3:05 PM EDT Office Visit [facility] [address] [place] [phone] Denise Lazo MD [address] [place] [address] 12/15/2026 9:00 AM EST Office Visit [facility] [address] [place] [phone] Yuri Bowers PA [address] [place], [place] [phone] documented as of this encounter Goals Goal Patient Goal Type Associated Problems Recent Progress Patient-Stated? Author Help patient manage antidepressant medication Care Plan Patient on antidepressant monitoring plan Kaetrina Carrington documented as of this encounter Visit Diagnoses Diagnosis Moderate episode of recurrent major depressive disorder (HCC)- Primary documented in this encounter Additional Health Concerns Active Problems Noted Date Diagnosed Date Patient on antidepressant monitoring plan 2023 Assessment Noted Time PHQ-9 Depression Total Score: 7 11/02/20 23 3:03 PM EST documented as of this encounter Care Teams Gas Regulator Repairer Helper Relationship Specialty Start Date End Date Tapan Barboza MD [address] [place] [address] PCP - General Family Medicine 06/10/24 Ariella Mathis DO [address] [place] [address] Referring Physician Neurology 01/02/24 Mae Reese NP [address] [place] [address] Nurse Practitioner Family Medicine 06/10/24 documented as of this encounter
--- OUTSIDE RECORDS SUMMARY | 2025-04-30 12:41 | XMS_ITS | Encounter Summary ---
Author Organization [facility] Address [address] [place] [address] Care Team Providers Care Installation Drafter Name Role Phone Shaikh BONNY Ohara Primary Care Provider [phone] [facility] Un[facility] [phone] Kaylene López MD Primary Care Provider [phone] Encounter Details Date Type Department Care Team (Late st Contact Info) Description 06/28/2022 Orders Only [facility] [address] [place] [address] Farrah Denny MA Social History Tobacco Use Types Packs/Day Years Used Date Smoking Tobacco: Never Smokeless Tobacco: Never Alcohol Use Standard Drinks/Week Comments Yes 0 (1 standard drink = 0.6 oz pur e alcohol) occasional Comments Unknown Sex and Gender Information Value Date Recorded Sex Assigned at Not on file Legal Sex Female 10:32 PM EDT Gender Identity Not on file Sexual Orientation Not on file documented as of this encounter Plan of Treatment Not on file documented as of this encounter Visit Diagnoses Not on filedocumented in this encounter Care Teams Installation Drafter Relationship Specialty Start Date End Date Shaikh Ohara MD [address] [place] [address] PCP - General Family Medicine 03/22/23 01/21/25 Kaylene López MD [address] [place] [address] PCP - General Nurse Practitioner 01/22/25 Shay-Mag Peralta, RUPINDER [facility] Respiratory Therapy/Pulmonary Disease Department [address] [place] [address]. [place] [address] Respiratory Navigator Respiratory Therapy 08/07/2411/13/24 documented as of this encounter
--- OUTSIDE RECORDS SUMMARY | 2025-04-30 12:41 | XMS_ITS | Clinical Summary ---
Author Organization [facility] Address [id number] [address] [place] [address] Care Team Providers Care Diesel Service Journeyman Name Role Phone Timoteo Rainey MD Primary Care Provider Ady clementeable Allergies No known active allergies Medications lisinopril (PRINIVIL,ZESTR IL) 40 mg tablet Take 40 mg by mouth daily. Active clonazePAM (KlonoPIN) 0.5 mg tablet Take 0.5 mg by mouth nightly as needed for seizures. Active PARoxetine (PAXIL) 40 mg tablet Take 40 mg by mouth every morning. Active loratadine (CLARITIN) 10 mg tablet Take 10 mg by mouth daily. Active omeprazole (PriLOSEC) 20 mg capsule Take 20 mg by mouth daily. Active famotidine (PEPCID) 20 mg tablet Take 20 mg by mouth 2 (two) times a day. Active amLODIPine (NORVASC) 10 mg tablet Take 10 mg by mouth 2 (two) times a day. Active cyclobenzaprine (FLEXERIL) 10 mg tablet Take 10 mg by mouth 3 (three) times a day as needed for muscle spasms. Active ipratropium (ATROVENT HFA) 17 mcg/actuation inhaler Inhale 2 puffs 4 (four) times a day. Active albuterol (PROVENTIL HFA;VENTOLIN HFA) 90 mcg/actuation inhaler Inhale 2 puffs every 6 (six) hours as needed for wheezing. Active spironolactone (ALDACTONE) 50 mg tablet Take 50 mg by mouth daily. Active ferrous sulfate 325 (65 FE) mg tablet Take 325 mg by mouth daily with breakfast. Active uvukzoct-rmqy-V A-calcium &mins (THERAGRAN-M) 9 mg iron-400 mcg tablet Take 1 tablet by mouth daily. Active traZODone (DESYREL) 50 mg tablet Take 50 mg by mouth nightly. 01/21/2019 Active spironolacton-h ydroCHLOROthiaz (ALDACTAZIDE) 25-25 mg per tablet Take 25 mg by mouth daily. 01/03/2019 Active meloxicam (MOBIC) 7.5 mg tablet Take 7.5 mg by mouth daily. 01/03/2019 Active montelukast (SINGULAIR) 10 mg tablet 06/24/2019 Active Active Problems Problem Noted Date Diagnosed Date Left hip pain 06/12/2019 Disc displacement, lumbar 03/26/2019 Overview (03/26/2019): Added automatically from request for surgery [id number] Arthritis of right knee 10/17/2018 Lumbar spondylosis 05/22/2018 Overview (05/22/2018): Added automatically from request for surgery [id number] Disorder of sacrum 01/15/2018 Overview (01/15/2018): Added automatically from request for surgery [id number] Immunizations Immunization Administration Dates Next Due Pneumococcal Polysaccharide 10/19/2018 Family History Medical History Relation Name Comments No Known Problems Brother 1 No Known Problems Brother 2 No Known Problems Brother 3 No Known Problems Daughter 1 No Known Problems Daughter 2 Coronary artery disease Father Coronary artery disease Mother No Known Problems Sister 1 No Known Problems Sister 2 No Known Problems Son 1 No Known Problems Son 2 No Known Problems Son 3 No Known Problems Son 4 Schizophrenia Son 5 Relation Name Status Comments Brother 1 Alive Brother 2 Alive Brother 3 Alive Daughter 1 Alive Daughter 2 Alive Father Mother Sister 1 Alive Sister 2 Alive Son 1 Alive Son 2 Alive Son 3 Alive Son 4 Alive Son 5 Alive Social History Tobacco Use Types Packs/Day Years Used Date Smoking Tobacco: Never Smokeless Tobacco: Never Alcohol Use Standard Drinks/Week Comments Yes 0 (1 standard drink = 0.6 oz pure alcohol) 1 glass of wine twice per month Childcare Answer Date Recorded Childcare Unknown 04/04/2019 Employment Answer Date Recorded Employment Unknown 04/04/2019 Purpose - Life Answer Date Recorded Purpose and direction in life Unknown Comments No Sex and Gender Information Value Date Recorded Sex Assigned at Not on file Legal Sex Female 11:34 AM EDT Gender Identity Not on file Sexual Orientation Not on file Last Filed Vital Signs Vital Sign Reading Time Taken Comments Blood Pressure 116/55 07/16/2019 8:23 AM EDT Pulse 77 07/16/2019 8:23 AM EDT Temperature 36.6 C (97.8 F) 05/27/2019 8:52 AM EDT Respiratory Rate 18 06/12/2019 9:20 AM EDT Oxygen Saturation 97% 05/27/2019 9:23 AM EDT Inhaled Oxygen Concentration - - Weight 101.2 kg (223 lb) 07/16/2019 8:23 AM EDT Height 162.6 cm (5' 4 ) 05/23/2019 8:08 AM EDT Body Mass Index 38.28 05/23/2019 8:08 AM EDT Plan of Treatment Health Maintenance Due Date Last Done Comments Depression Screening 1968 Tobacco Screening 1968 Adult BMI Screening 1974 DTaP,Tdap and Td Vaccines (1 - Tdap) 1975 Zoster (Shingles) Vaccine (1 of 2) 2006 Fall Risk Screening 2021 Influenza Vaccine 07/07/2025 Medical Devices Implanted Type Area Watch Band Assembler Device Identifier Shelf Expiration Date Model / Serial / Lot Cmnt Bn [employer] Rpl [id number] - Sna - [id number] Implanted:Qty: 1 on 10/18/2018 by Jim Herring Jr. DO at [facility] Cement Right: Knee [employer] [id number] / NA / [id number] Cmnt Bn [employer] Rpl [id number] - Sna - [id number] Implanted:Qty: 2 on 10/18/2018 by Jim Herring Jr. DO at [facility] Cement Right: Knee [employer] 02/03/2022 [id number] / NA / [id number] Orthopedic Implant Orthopedic Implant Description:lumbar fusion Orthopedic Implant Orthopedic Implant Description:left hip Cmpt Ptlr 32mm Nxgn Alply Rpl [id number] + [id number] + [id number] - Sna - [id number] Implanted:Qty: 1 on 10/18/2018 by Jim Herring Jr., DO at [facility] Orthopedic Implant Right: Knee [employer] 07/06/20265972 5-32 / NA / [id number] Ins Artc 3-4 E-F 12mm Kn Fx Rpl [id number] - Sna - [id number] Implanted:Qty: 1 on 10/18/2018 by Jim Herring Jr., DO at [facility] Orthopedic Implant Right: Knee [employer] 10/05/20225962 2-12 / NA / [id number] Cmpt Fem E Kn Rt Lpsflx Gndr Rpl [id number] - Sna - [id number] Implanted:Qty: 1 on 10/18/2018 by Jim Herring Jr., DO at [facility] Orthopedic Implant Right: Knee [employer] 11/05/20275764- 5-52 / NA / [id number] Plt Tib [id number] Nxgn Kn Cmnt Rpl [id number] + [id number] - Sna - [id number] Implanted:Qty: 1 on 10/18/2018 by Jim Herring Jr. DO at [facility] Plate Right: Knee [employer] 80 7-02 / NA / [id number] Explanted Type Area Watch Band Assembler Device Identifier Shelf Expiration Date Model / Serial / Lot Scr Bn Chente 35mm 6.5mm Hip St Rpl [id number] + [id number] + 32 - Sna - [id number] Explanted:Qty: 2 on 10/18/2018 at [facility] Screw Right: Knee [employer] 09/05/20280- 5-35 / NA / [id number] Scr Gd 48mm Qd-Spr Hex Hd Mis - Sna - [id number] Explanted:Qty: 2 on 10/18/2018 by Jim Herring Jr. DO at [facility] Screw Right: Knee [employer] 05/05/20285983- 0-48 / NA / [id number] Insurance MEDICARE [place]ICAID [place] Advance Directives * Full Code (Latest Code Status on File) Date Activated Date Inactivated Comments 10/18/2018 1:03 PM 10/19/2018 2:33 PM Care Teams Diesel Service Journeyman Relationship Specialty Start Date End Date Timoteo Rainey MD PCP - General Family Medicine 12/26/17
--- OUTSIDE RECORDS SUMMARY | 2025-04-30 12:41 | XMS_ITS | Encounter Summary ---
Author Organization [facility] Address [address] [place] [address] Care Team Providers Care Associate Music Professor Name Role Phone Shaikh BONNY Ohara Primary Care Provider [phone] Ariella Mathis DO Unavailable [phone] Tapan Barboza MD Primary Care Provider [phone] Mae Reese LEASING CONSULTANT Unavailable [phone] Encounter Details Date Type Department Care Team (Late st Contact Info) Description 02/29/2024 Clinisync Result Encounter [facility] External Department Unsolicited Kaylene López, RIKKI [address] [place] [phone] Social History Tobacco Use Types Packs/Day Years [...] week 10/26/2023 How often do you attend [facility] or [facility] services? More than 4 times per year [...] Date Recorded Patient Health Questionnaire-2 Score 0 02/26/2024 [facility] Occupat ional Health - Occupational Stress [...] place to sleep or slept in a group home (including now)? No 10/26/2023 Comments Unknown Sex [...] Visit [facility] [address] [place] [address] Kaylene López NP [address] [place] [phone] 06/17/2025 3:05 PM EDT Office Visit [facility] [address] [place] [address] Denise Lazo MD [address] [place] [address] 12/15/2026 9:00 AM EST Office Visit [facility] [address] [facility] [place] [address] Yuri Bowers PA [address] [facility] [address] [place] [address] documented as of this encounter Procedures Procedure Name Priority Date/Time Associated Diagnosis Comments MM TOMOSYNTHESIS SCREENING BI 02/29/2024 4:01 PM EDT documented in this encounter Results * MM TOMOSYNTHESIS SCREENING BI (02/29/2024 4:01 PM EDT) Anatomical Region Laterality Modality Other 02/29/2024 4:01 PM EDT Narrative 02/29/2024 4:02 [place] [address] Mammography Report Signed Patient: DIANA CHAMPION MR#: [id number] : 1955 Acct:[id number] Age/Sex: 68 / F ADM Date: 02/28/24 Loc: MAMMO Attending Dr: Kaylene López NP Ordering Physician: Kaylene López NP Results: Date of Service: 02/28/24 Follow Up: Procedure(s): MM tomosynthesis screening BI Accession Number(s): [id number] cc: Kaylene López NP; Shaikh Eva Ohara Patient Name: DIANA CHAMPION MR#: [id number] : 1955 Exam Date: 02/28/2024 Ordering Doctor: CLEO López CNP RADIOLOGY REPORT PROCEDURE: MM TOMOSYNTHESIS SCREENING BI COMPARISON: MG MAMM SCREEN 3D PRATEEK CAD, 12/15/2022. MG MAMM SCREEN 3D PRATEEK CAD, 11/26/2021. MG MAMM SCREEN PRATEEK W CAD, 11/19/2020. MG MAMM PRATEEK SCRN W CAD DIG, 12/16/2013. INDICATIONS: Screening Calculator Name NCI Breast Cancer Risk Assessment Tool 5 Year Breast Cancer Risk 1.20% Lifetime Breast Cancer Risk 4.20% Personal Breast Cancer No Personal Ovarian Cancer No Treatments Excision, radiation, chemotherapy Family Cancers None LOCATION: [facility] BREAST COMPOSITION: The breasts are almost entirely fatty. FINDINGS: DIAGNOSTIC CATEGORY 1--NEGATIVE. RIGHT BREAST: No significant suspicious finding. No significant change has occurred. LEFT BREAST: No significant suspicious finding. No significant change has occurred. RECOMMENDATIONS: ROUTINE MAMMOGRAM AND CLINICAL EVALUATION IN 12 MONTHS. PLEASE NOTE: A NORMAL MAMMOGRAM DOES NOT EXCLUDE THE POSSIBILITY OF BREAST CANCER. A CLINICALLY SUSPICIOUS PALPABLE LUMP SHOULD BE BIOPSIED. Dictated by: Michael Patel M.D. on 02/29/2024 at 16:00 Approved by: Michael Patel M.D. on 02/29/2024 at 16:01 Dictated By: Michael Patel M.D. Signed By: 02/29/24 1602 DD/ 160 TD/TT: Offset Platemaker: Procedure Note Radiology, Radiologist, MD - 02/29/2024 [place] [address] Mammography Report Signed Patient: DIANA CHAMPION AMR#: [id number] : 1955cct:[id number] Age/Sex: 68 / FADM Date: 02/28/24 Loc: MAMMO Attending Dr: Kaylene López NP Ordering Physician: Kaylene Lópezesults: Date of Service: 02/28/24Follow Up: Procedure(s): MM tomosynthesis screening BI Accession Number(s): [id number] cc: Kaylene López LEASING CONSULTANT; Shaikh Eva Ohara Patient Name: DIANA CHAMPION MR#: [id number] : 1955 Exam Date: 02/28/2024 Ordering Doctor: CLEO López CNP RADIOLOGY REPORT PROCEDURE: MM TOMOSYNTHESIS SCREENING BI COMPARISON: MG MAMM SCREEN 3D PRATEEK CAD, 12/15/2022. MG MAMM SCREEN 3DBIL CAD, 11/26/2021. MG MAMM SCREEN PRATEEK W CAD, 11/19/2020. MG MAMM PRATEEK SCRN WCAD DIG, 12/16/2013. INDICATIONS: Screening Calculator Name NCI Breast Cancer Risk Assessment Tool 5 Year Breast Cancer Risk 1.20% Lifetime Breast Cancer Risk 4.20% Personal Breast Cancer No Personal Ovarian Cancer No Treatments Excision, radiation, chemotherapy Family Cancers None LOCATION: [facility] BREAST COMPOSITION: The breasts are almost entirely fatty. FINDINGS: DIAGNOSTIC CATEGORY 1--NEGATIVE. RIGHT BREAST: No significant suspicious finding. No significant changehas occurred. LEFT BREAST: No significant suspicious finding. No significant changehas occurred. RECOMMENDATIONS: ROUTINE MAMMOGRAM AND CLINICAL EVALUATION IN 12 MONTHS. PLEASE NOTE: A NORMAL MAMMOGRAM DOES NOT EXCLUDE THE POSSIBILITY OFBREAST CANCER. A CLINICALLY SUSPICIOUS PALPABLE LUMP SHOULD BE BIOPSIED. Dictated by: Michael Patel M.D. on 02/29/2024 at 16:00 Approved by: Michael Patel M.D. on 02/29/2024 at 16:01 Dictated By: Michael Patel M.D. Signed By:02/29/24 1602 DD/ 1601 TD/TT: Offset Platemaker: us Kaylene López NP [facility] Final Result documented in this encounter Visit Diagnoses Not on filedocumented in this encounter Additional Health Concerns Assessment Noted Time PHQ-9 Depression Total Score: 7 11/02/20 23 3:03 PM EST documented as of this encounter Care Teams Associate Music Professor Relationship Specialty Start Date End Date Shaikh Ohara MD [address] [place] [address] PCP - General Internal Medicine 12/28/23 06/09/24 Tapan Barboza MD [address] [place] [address] PCP - General Family Medicine 06/10/24 Ariella Mathis DO [address] [place] [address] Referring Physician Neurology 01/02/24 Mae Reese NP [address] [place] [address] Nurse Practitioner Family Medicine 06/10/24 documented as of this encounter
--- OUTSIDE RECORDS SUMMARY | 2025-04-30 12:41 | XMS_ITS | Encounter Summary ---
Author Organization [facility] Address [address] [place] [address] Care Team Providers Care Collections Clerk Name Role Phone Ariella Mathis DO Unavailable [phone] Tapan Barboza MD Primary Care Provider [phone] Mae Reese MOTORCYCLE DESIGNER Unavailable [phone] Reason for Visit * Reason Onset Date Comments Med Refill 04/29/2025 Encounter Details Date Type Department Care Team (Late st Contact Info) Description 04/29/2025 Refill [facility] [address] [place] [phone] Kaylene López NP [address] [place] [phone] Restless leg syndrome Social History Tobacco Use Types Packs/Day Years [...] week 11/25/2024 How often do you attend [facility] or budd[facility] services? More than 4 times per year 11/25/2024 Do you belong to any clubs o r organizations such as zoroastrianism groups, unions, fraternal or athletic groups, or [...] Recorded Patient Health Questionnaire-2 Score 0 07/11/2024 [facility] - Occupational [...] place to sleep or slept in a senior living (including now)? No 10/26/2023 Housing Stability Vital Sign Answer Dhruv e Recorded In the last 12 months, was t here a time when you were not able to pay the mortgage or rent on time? No 11/25/2024 In the past 12 months, how m any times have you moved where you were living? 0 11/25/2024 At any time in the past 12 m [facility], were you homeless or living in a senior living (including now)? No 11/25/2024 Comments Unknown Sex [...] [facility] [address] [place] [address] Kaylene López NP [address] [place] [address] 06/17/2025 3:05 PM EDT Office Visit [facility] [address] [place] [phone] Denise Lazo MD [address] [place] [address] 12/15/2026 9:00 AM EST Office Visit [facility] [address] [place] [phone] Yuri Bowers PA [address] [place] [address] documented as of this encounter Goals Goal Patient Goal Type Associated Problems Recent Progress Patient-Stated? Author Help patient manage antidepressant medication Care Plan Patient on antidepressant monitoring plan Katerina Carrington documented as of this encounter Visit Diagnoses Diagnosis Restless leg syndrome Restless legs syndrome (RLS) documented in this encounter Additional Health Concerns Active Problems Noted Date Diagnosed Date Patient on antidepressant monitoring plan 2023 Assessment Noted Time PHQ-9 Depression Total Score: 7 11/02/20 23 3:03 PM EST documented as of this encounter Care Teams Collections Clerk Relationship Specialty Start Date End Date Tapan Barboza MD [address] [place] [phone] PCP - General Family Medicine 06/10/24 Ariella Mathis DO [address] [place] [address] Referring Physician Neurology 01/02/24 Mae Reese NP [address] [place] [phone] Nurse Practitioner Family Medicine 06/10/24 documented as of this encounter
--- OUTSIDE RECORDS SUMMARY | 2025-04-30 12:41 | XMS_ITS | Clinical Summary ---
Author Organization [facility] Address [address] [place] [address] Care Team Providers Care Felt Hat Flanging Operator Name Role Phone Kaylene López MD Primary Care Provider [phone] Allergies Active Allergy Reactions Criticality Noted Date Comments Fentanyl Other Medium 07/07/2017 Other Reaction(s): Hallucinating Medications albuterol 2.5 mg /3 mL (0.083 %) nebulizer solution USE 1 VIAL IN NEBULIZER EVERY 4 TO 6 HOURS NEEDED Active albuterol 90 mcg/actuation inhaler INHALE 2 PUFFS BY MOUTH EVERY 4 HOURS NEEDED FOR SHORTNESS OF BREATH Active cholecalciferol (Vitamin D-3) 25 MCG (1000 UT) tablet Take 1 tablet by mouth in the morning. Active fluticasone-ume clidin-vilanter 100-62.5-25 mcg blister with device Active guaiFENesin (Mucinex) 600 mg 12 hr tablet Take 1 tablet by mouth in the morning and at bedtime. Active montelukast (Singulair) 10 mg tablet Take 1 tablet by mouth at bedtime. Active omeprazole (PriLOSEC) [address] capsule Take 20 mg by mouth before breakfast and before evening meal. Active ferrous sulfate 325 (65 Fe) MG tablet Take 325 mg by mouth every other day. Active magnesium oxide (Mag-Ox) 400 mg (241.3 mg magnesium) tablet TAKE 1 TABLET BY MOUTH ONCE DAILY WITH FOOD 3 Active multivitamin (Theragran-M) 9 mg iron-400 mcg tablet Take 1 tablet by mouth in the morning. Active solifenacin (VESIcare) 5 mg tablet Take 10 mg by mouth in the morning. 3 Active Trelegy Ellipta 200-62.5-25 mcg blister with device INHALE 1 PUFF ONCE DAILY RINSE MOUTH AFTER USE 3 Active pramipexole (Mirapex) 0.25 mg tablet TAKE 1 TABLET BY MOUTH ONCE DAILY EVERY EVENING (2-3 HOURS BEFORE BEDTIME) 4 Active pregabalin (Lyrica) 75 mg capsule TAKE 1 CAPSULE BY MOUTH IN THE MORNING AND 1 AT BEDTIME 4 Active traMADol (Ultram) 50 mg tablet Take 50 mg by mouth every 12 (twelve) hours. 4 Active alendronate (Fosamax) 35 mg tablet TAKE 1 TABLET BY MOUTH 30 MINUTES BEFORE THE FIRST FOOD, BEVERAGE, OR MEDICINE OF THE DAY WITH PLAIN WATER ONCE A WEEK. 4 Active furosemide (Lasix) 20 mg tablet Take 20 mg by mouth in the morning. 4 Active latanoprost (Xalatan) 0.005 % ophthalmic solution INSTILL 1 DROP INTO EACH EYE AT BEDTIME 4 Active ofloxacin (Ocuflox) 0.3 % ophthalmic solution 4 Active prednisoLONE acetate (Pred-Forte) 1 % ophthalmic suspension 4 Active Klor-Con M20 20 mEq ER tablet TAKE 1 BY MOUTH WITH FOOD TWICE DAILY FOR 90 DAYS 3 Active sodium chloride 0.9 % nebulizer solution USE 1 VIAL IN NEBULIZER THREE TIMES DAILY Active baclofen (Lioresal) 10 mg tablet TAKE 1 TABLET BY MOUTH THREE TIMES DAILY (MORNING, EVENING, BEFORE BEDTIME) Active PARoxetine (Paxil) 30 mg tablet Take 40 mg by mouth. 4 Active traZODone (Desyrel) 100 mg tablet Take 100 mg by mouth at bedtime. 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 She had just covered from prolonged hospital admission. Its entirely possible that she may have developed CKD. Check BMP. Chronic respiratory failure with hypoxia Overview (05/13/2024): Last Assessment & Plan: On 3 L O2 via NC now. She was previously on 2 L She is doing well currently and stated that this is the best she has felt since she had COVID over a year ago. Leukocytosis 12/28/2023 Overview (05/13/2024): Last Assessment & Plan: WBC 20 K when measures last time. However, she was on steroids at that time. Recheck. Hospital discharge follow-up 12/05/2023 Overview (05/13/2024): Last Assessment & Plan: Recent hospital stay for observation. Observation for asthma exacerbation. She is doing well. Feels her chest is congested and reports dyspnea at rest, worse on exertion. Her O2 requirement is same and at baseline. Patient has severe persistent asthma/COPD and bronchiectasis and on maximal therapy. She has chronic dyspnea at baseline and her lung function is progressively declining. She has an appt with Pulm and she will discuss possibly jail prednisone for her severe Asthma/COPD. Patient instructed to go to ED if she experiences worsening SOB. Hyperuricemia 12/05/2023 Malaise 12/05/2023 Spinal stenosis, lumbar elke on without neurogenic claudication 12/05/2023 Status post total right knee replacement 024 Medicare annual wellness visit, subsequent 11/06 Overview (05/13/2024): Last Assessment & Plan: Here for Medicare Wellness. Screened for depression, cognitive impairment, fall risk Ordered cologuard for the patient. Mammogram not due. Will order next appt. Arthritis 10/04/2023 At moderate risk for fall 10/04/2023 Chronic back pain greater than 3 months duration 10/04/2023 Chronic heart failure with preserved ejection fr action 10/04/2023 Chronic kidney disease, stage III (moderate) Chronic low back pain without sciatica Overview (05/13/2024): Last Assessment & Plan: Chronic back pain, acutely worsened for past 5-6 weeks. Pain is persistent, worsening. She is unable to sleep due to pain. Pain is midline with radiation to b/l buttocks She has prior hx of lumbar fusion. She also has multilevel degenerative disc disease based on an MRI in 2019. She follows up with Pain clinic and uses tramadol for chronic pain. She denies any injury. Pain started suddenly with no acute injury. She has left LE weakness on exam which is new. She also has hx of recurrent steroid use, osteopenia Will order an XR first to r/o compression fracture - no evidence of fracture. She is on lyrica for chronic pain. Added baclofen and oxycodone as tramadol was not helping her pain. Given her prior hx of degenerative disc disease, hx of lumbar fusion, new/worsening and progressive pain, with neurological weakness (new), I will order an MRI. Will renew her Oxycodone to provide her some relief until we have more information on the etiology of her pain Colorectal cancer 10/04/2023 Depression 10/04/2023 Overview (05/13/2024): Last Assessment & Plan: Patient currently on Trazodone and Paxil. Reports depressed mood, anhedonia, poor sleep. Increase Paxil to 30 mg. Trazodone to 100 mg. Patient counseled and educated on adverse effects, drug interactions and to reach out to office/pharmacy if questions or concerns related to new medications. Iron deficiency anemia 10/04/2023 Moderate persistent asthma with exacerbation Overview (05/13/2024): Last Assessment & Plan: Patient was treated with Oral steroids for asthma exacerbation. She then follow up with Pulmonology who prescribed her oral antibiotics and prolonged steroid taper. She is feeling better than before but still SOB, wheezing and has difficulty breathing and feels tight. She has two more days of steroids and finished her oral abx prescribed by her surgical elastic knitter. Continues to have bronchospasm, wheezing, chest tightness and will benefit from continuing pulse steroid taper as outpatient. Patient educated to go to ED if worsening SOB, hypoxia and no improvement with prednisone. C/w albuterol q4. At high risk of poor outcome. Non-recurrent acute suppurat khai otitis media of both ears without spontaneous rupture of tympanic membranes 10/04/2023 Overview (05/13/2024): Last Assessment & Plan: B/l otitis media noted on exam. Will call in oral Augmentin for patient. Positive depression screening 10/04/2023 Post-menopausal 10/04/2023 Restless leg syndrome 10/04/2023 Urge incontinence 10/04/2023 Vitamin D deficiency 10/04/2023 Malignant neoplasm of rectosigmoid junction 09/07 Morbid (severe) obesity due to excess calories 1 12/04/2022 Body mass index (BMI) 40.0-44.9, adult 3 05/08/2023 Critical illness myopathy 05/08/20232022 History of COVID-19 05/08/2023 05/08/2023 Other secondary pulmonary hypertension 3 05/08/2023 Primary osteoarthritis of right hip 03/26/2023 Electrocardiogram abnormal 06/28/2022 Disc displacement, lumbar 03/26/2019 Overview (03/23/2023): Added automatically from request for surgery [id number] Arthritis of right knee 10/17/2018 Lumbar spondylosis 05/22/2018 Overview (03/23/2023): Added automatically from request for surgery [id number] Disorder of sacrum 01/15/2018 Overview (03/23/2023): Added automatically from request for surgery [id number] Asthma 04/01/2014 Chest pain 04/01/2014 Chronic obstructive lung disease 04/01/2014 Chronic sinusitis 04/01/2014 Dyspnea 04/01/2014 Edema 04/01/2014 Essential hypertension 04/01/2014 Gastroesophageal reflux disease 04/01/2014 Hyperlipidemia 04/01/2014 Type 2 diabetes mellitus without complication 05/08/2023 Overview (05/08/2023): Removal Reason: Patient states no DM hx Left hip pain 07/18/2010 Family History Medical History Relation Name Comments Heart disease Father Heart failure Mother Relation Name Status Comments Father Mother Social History Tobacco Use Types Packs/Day Years Used Date Smoking Tobacco: Never Smokeless Tobacco: Never Tobacco Cessation:Counseling Given: Not Answered Alcohol Use Standard Drinks/Week Comments Not Currently 0 (1 standard drink = 0.6 oz pur e alcohol) occasional Humiliation, Afraid, Rape, and Kick questionnair e Answer Date Recorded Within the last year, have y ou been afraid of your partner or ex-partner? No 07/11/2024 Emotionally Abused Not on file 07/11/2024 Physically Abused Not on file 07/11/2024 Sexually Abused Not on file 07/11/2024 PHQ-2 Answer Date Recorded Patient Health Questionnaire-2 Score 0 10/17/2024 Comments Unknown Sex and Gender Information Value Date Recorded Sex Assigned at Not on file Legal Sex Female 10:32 PM EDT Gender Identity Not on file Sexual Orientation Not on file Last Filed Vital Signs Vital Sign Reading Time Taken Comments Blood Pressure 122/74 01/23/2025 12:03 PM EDT Pulse 70 01/23/2025 12:03 PM EDT Temperature 36.4 C (97.5 F) 07/02/2024 8:11 AM EDT Respiratory Rate 18 07/02/2024 12:20 PM EDT Oxygen Saturation 96% 01/23/2025 12:03 PM EDT on 3L O2 Inhaled Oxygen Concentration - - Weight 107 kg (236 lb) 01/23/2025 12:03 PM EDT p er patient Height 162.6 cm (5' 4 ) 01/23/2025 12:03 PM EDT Body Mass Index 40.51 01/23/2025 12:03 PM EDT Plan of Treatment Health Maintenance Due Date Last Done Comments CT Colonography 1955 Colonoscopy 1955 Colorectal Cancer Screening 1955 Diabetes: Hemoglobin A1C 1955 FIT-DNA 1955 FIT 1955 FOBT 1955 Medicare Annual Wellness (AWV) 1955 Sigmoidoscopy 1955 Diabetes: Retinopathy Screening 1966 Diabetes: Urine Protein Screening 1975 Adult Tetanus 1978 Mammogram 1996 COVID-19 Vaccine ( season) 2024 09/20/2024, 08/26/2023, 08/04/2022, Additional history exists Depression Screening 10/17/2025 10/17/2024 Fall Risk Screening 10/17/2025 10/17/2024 Zoster Vaccines Completed 11/01/2022, 08/27/2022 Pneumococcal Vaccine: 50+ Years Completed 08/09/2023, 10/19/2018 Influenza Vaccine Completed 09/06/2024, , 08/04/2022, Additional history exists HIB Vaccines Aged Out No longer eligi ble based on patient's age to complete this topic HPV Vaccines Aged Out No longer eligi ble based on patient's age to complete this topic IPV Vaccines Aged Out No longer eligi ble based on patient's age to complete this topic Meningococcal B Vaccine Aged Out No l onger eligible based on patient's age to complete this topic Meningococcal Vaccine Aged Out No dilip robert eligible based on patient's age to complete this topic Rotavirus Vaccines Aged Out No longer eligible based on patient's age to complete this topic Insurance MEDICAID [place] [employer] MEDICARE ADVANTAGE Care Teams Felt Hat Flanging Operator Relationship Specialty Start Date End Date Kaylene López MD [address] [place] [address] PCP - General Nurse Practitioner 01/22/25
--- OUTSIDE RECORDS SUMMARY | 2025-04-30 12:41 | XMS_ITS | Encounter Summary ---
Author Organization [facility] Address [address] [place] [address] Care Team Providers Care Miter Saw Operator Name Role Phone Ariella Mathis DO Unavailable [phone] Tapan Barboza MD Primary Care Provider [phone] Mae Reese ELECTRICIAN WIRING Unavailable [phone] Reason for Visit * Reason Comments Med Refill Encounter Details Date Type Department Care Team (Late st Contact Info) Description 04/27/2025 Refill [facility] [address] [place] [phone] Kaylene López NP [address] [place] [phone] Chronic bilateral low back pain without sciatica Social History Tobacco Use Types Packs/Day Years [...] week 11/25/2024 How often do you attend [facility] or [facility] services? More than 4 times per year 11/25/2024 Do you belong to any clubs o r organizations such as bahai groups, unions, fraternal or athletic groups, or [...] Recorded Patient Health Questionnaire-2 Score 0 07/11/2024 [facility] - Occupational [...] a group home (including now)? No 10/26/2023 Housing Stability Vital Sign Answer Dhruv e Recorded In the last 12 months, was t here a time when you were not able to pay the mortgage or rent on time? No 11/25/2024 In the past 12 months, how m any times have you moved where you were living? 0 11/25/2024 At any time in the past 12 m [facility], were you homeless or living in a group home (including now)? No 11/25/2024 Comments Unknown Sex [...] [facility] [address] [place] [address] Kaylene López NP [address] [place] [address] 06/17/2025 3:05 PM EDT Office Visit [facility] [address] [place] [address] Denise Lazo MD [address] [place] [address] 12/15/2026 9:00 AM EST Office Visit [facility] [address] [place] [phone] Yuri Bowers PA [address] [place], [place] [id number] documented as of this encounter Goals Goal Patient Goal Type Associated Problems Recent Progress Patient-Stated? Author Help patient manage antidepressant medication Care Plan Patient on antidepressant monitoring plan Katerina Carrington documented as of this encounter Visit Diagnoses Diagnosis Chronic bilateral low back pain without sciatica documented in this encounter Additional Health Concerns Active Problems Noted Date Diagnosed Date Patient on antidepressant monitoring plan 2023 Assessment Noted Time PHQ-9 Depression Total Score: 7 11/02/20 23 3:03 PM EST documented as of this encounter Care Teams Miter Saw Operator Relationship Specialty Start Date End Date Tapan Barboza MD [address] [place] [address] PCP - General Family Medicine 06/10/24 Ariella Mathis DO [address] [place] [address] Referring Physician Neurology 01/02/24 Mae Reese NP [address] [place] [address] Nurse Practitioner Family Medicine 06/10/24 documented as of this encounter
--- OUTSIDE RECORDS SUMMARY | 2025-04-30 12:41 | XMS_ITS | Encounter Summary ---
Author Organization [facility] Address [address] [place] [address] Care Team Providers Care Statistical Analyst Name Role Phone Ariella Mathis DO Unavailable [phone] Tapan Barboza MD Primary Care Provider [phone] Mae Reese SAND CASTER APPRENTICE Unavailable [phone] Encounter Details Date Type Department Care Team (Late st Contact Info) Description 04/29/2025 Abstract [facility] [address] [place] [address] Kaylene López NP [address] [place] [address] Social History Tobacco Use Types Packs/Day Years [...] week 11/25/2024 How often do you attend chur or buddhist services? More than 4 times per year 11/25/2024 Do you belong to any clubs o r organizations such as zoroastrian groups, unions, fraternal or athletic groups, or [...] Patient Health Questionnaire-2 Score 0 07/11/2024 [facility] - Occupational [...] place to sleep or slept in a longterm (including now)? No 10/26/2023 Housing Stability Vital Sign Answer Dhruv e Recorded In the last 12 months, was t here a time when you were not able to pay the mortgage or rent on time? No 11/25/2024 In the past 12 months, how m any times have you moved where you were living? 0 11/25/2024 At any time in the past 12 m [facility], were you homeless or living in a longterm (including now)? No 11/25/2024 Comments Unknown Sex [...] [facility] [address] [place] [address] Kaylene López NP [address] [place] [address] 06/17/2025 3:05 PM EDT Office Visit [facility] [address] [place] [address] Denise Lazo MD [address] [place] [address] 12/15/2026 9:00 AM EST Office Visit [facility] [address] [place] [address] Yuri Bowers PA [address] [place] [address] documented as of this encounter Goals Goal Patient Goal Type Associated Problems Recent Progress Patient-Stated? Author Help patient manage antidepressant medication Care Plan Patient on antidepressant monitoring plan Katernia Carrington documented as of this encounter Visit Diagnoses Not on filedocumented in this encounter Additional Health Concerns Active Problems Noted Date Diagnosed Date Patient on antidepressant monitoring plan 2023 Assessment Noted Time PHQ-9 Depression Total Score: 7 11/02/ 23 3:03 PM EST documented as of this encounter Care Teams Statistical Analyst Relationship Specialty Start Date End Date Tapan Barboza MD [address] [place] [address] PCP - General Family Medicine 06/10/24 Ariella Mathis DO [address] [place] [address] Referring Physician Neurology 01/02/24 Mae Reese NP [address] [place] [address] Nurse Practitioner Family Medicine 06/10/24 documented as of this encounter
--- OUTSIDE RECORDS SUMMARY | 2025-04-30 12:41 | XMS_ITS | Encounter Summary ---
Author Organization [facility] Address [address] [place] [address] Care Team Providers Care Light Equipment Operator Name Role Phone Ariella Mathis DO Unavailable [phone] Tapan Barboza MD Primary Care Provider [phone] Mae Reese MALT LOADER Unavailable [phone] Encounter Details Date Type Department Care Team (Late st Contact Info) Description 04/23/2025 Telephone [facility] [address] [place] [address] Kaylene López NP [address] [place] [address] Social History Tobacco Use Types Packs/Day Years [...] How often do you attend chur or jew services? More than 4 times per year 11/25/2024 Do you belong to any clubs o r organizations such as quaker groups, unions, fraternal or athletic groups, or [...] Recorded Patient Health Questionnaire-2 Score 0 07/11/2024 [facility] Occupat ional Health - Occupational Stress [...] place to sleep or slept in a alf (including now)? No 10/26/2023 Housing Stability Vital Sign Answer Dhruv e Recorded In the last 12 months, was t here a time when you were not able to pay the mortgage or rent on time? No 11/25/2024 In the past 12 months, how m any times have you moved where you were living? 0 11/25/2024 At any time in the past 12 m [facility], were you homeless or living in a alf (including now)? No 11/25/2024 Comments Unknown Sex and Gender Information Value Date Recorded Sex Assigned at Not on file Legal Sex Female 7:03 PM EDT Gender Identity Not on file Sexual Orientation Not on file documented as of this encounter Miscellaneous Notes * Telephone Encounter - KATE MTZ - 04/23/2025 4:10 PM EDT Text Bonding Machine Operator Hi, this is Diana Champion. My phone number is [phone]. At least when I was in there for my lastvisit, Kaylene was supposed to look up a medical a depression medication. That will go with my Paxil and get back in touch with me. I have not heard anything. So if you could give me a call back, I would appreciate it. Thank you very much. documented in this encounter Plan of Treatment Upcoming Encounters Date Type Department Care Team (Late st Contact Info) Description 05/19/2025 9:00 AM EDT Office Visit [facility] [address] [place] [address] Kaylene López, RIKKI [address] [place] [address] 06/17/2025 3:05 PM EDT Office Visit [facility] [address] [place] [address] Denise Lazo MD [address] [place] [address] 12/15/2026 9:00 AM EST Office Visit [facility] [address] [place] [address] Yuri Bowers PA [address] [place] [address] documented as of this encounter Goals Goal Patient Goal Type Associated Problems Recent Progress Patient-Stated? Author Help patient manage antidepressant medication Care Plan Patient on antidepressant monitoring plan Katerina Crarington documented as of this encounter Visit Diagnoses Not on filedocumented in this encounter Additional Health Concerns Active Problems Noted Date Diagnosed Date Patient on antidepressant monitoring plan 2023 Assessment Noted Time PHQ-9 Depression Total Score: 7 11/02/ 23 3:03 PM EST documented as of this encounter Care Teams Light Equipment Operator Relationship Specialty Start Date End Date Tapan Barboza MD [address] [place] [address] PCP - General Family Medicine 06/10/24 Ariella Mathis DO [address] [place] [address] Referring Physician Neurology 01/02/24 Mae Reese NP [address] [place] [address] Nurse Practitioner Family Medicine 06/10/24 documented as of this encounter
--- OUTSIDE RECORDS SUMMARY | 2025-04-30 12:41 | XMS_ITS | Encounter Summary ---
Author Organization [facility] Address [address] [facility] [place] [address] Care Team Providers Care Automatic Grinder Operator Name Role Phone Shaikh BONNY Ohara Primary Care Provider [phone] Ariella Mathis DO Unavailable [phone] Tapan Barboza MD Primary Care Provider [phone] Mae Reese GLOVE PRESSER Unavailable [phone] Encounter Details Date Type Department Care Team (Late st Contact Info) Description 05/29/2024 Clinisync Result Encounter [facility] External Department Unsolicited [...] any clubs o r organizations such as faith groups, unions, fraternal or athletic groups, or [...] Date Recorded Patient Health Questionnaire-2 Score 0 04/17/2024 [facility] Occupat ional Health - Occupational [...] health care facility (including now)? No 10/26/2023 Comments Unknown Sex [...] EDT Office Visit [facility] [address] [place] [address] Kaylene López NP [address] [place] [address] 06/17/2025 3:05 PM EDT Office Visit [facility] [address] [place] [address] Denise Lazo MD [address] [place] [address] 12/15/2026 9:00 AM EST Office Visit [facility] [address] [place] [address] Yuri Bowers PA [address] [facility] [address] [place] [address] documented as of this encounter Procedures Procedure Name Priority Date/Time Associated Diagnosis Comments CA ECHO DOPPLER COMPLETE 05/29/2024 3:49 PM EDT documented in this encounter Results * CA ECHO DOPPLER COMPLETE (05/29/2024 3:49 PM EDT) Anatomical Region Laterality Modality Other 05/29/2024 3:49 PM EDT Narrative 05/29/2024 3:50 PM EDT The [address] [address] Cardiology Report Signed Patient: DIANA CHAMPION MR#: [id number] : 1955 Acct:[id number] Age/Sex: 68 / F ADM Date: 05/28/24 Loc: CARD Attending Dr: Nasim Scales M.D. Ordering Physician: Nasim Scales M.D. Date of Service: 05/28/24 Procedure(s): CA echo doppler complete Accession Number(s): [id number] cc: Nasim Scales M.D.; Shaikh Eva Ohara Patient Name: DIANA CHAMPION MR#: [id number] : 1955 Exam Date: 05/28/2024 Ordering Doctor: DR NASIM SCALES M.D. ECHOCARDIOGRAM REPORT PROCEDURE: CA ECHO DOPPLER COMPLETE INDICATIONS: Pulmonary hypertension, COPD, congestive heart failure COMPARISON: None. DESCRIPTION: COMPLETE ECHOCARDIOGRAM Real-time transthoracic echocardiography with 2D, M-mode, spectral and color flow Doppler performed. QUALITY: Technical quality was good. LEFT VENTRICLE: Normal chamber size. Normal left ventricular wall thickness. Low normal systolic function. LV EF: Low normal left ventricular ejection fraction, (50%). DIASTOLIC: Normal diastolic function. ATRIAL SEPTUM: Visually appears intact. LEFT ATRIUM: Normal chamber size. RIGHT ATRIUM: Normal chamber size. RIGHT VENTRICLE: Normal chamber size. Normal right ventricular systolic function. TRICUSPID VALVE: Normal mobility and thickness. No stenosis with mild regurgitation. Doppler studies reveal severely (>60) elevated right sided pressures. RVSP 65 mmHg MITRAL VALVE: Normal mobility and thickness. No evidence of mitral valve stenosis. There is no mitral annular calcification. Trivial mitral regurgitation. AORTIC VALVE: Normal trileaflet appearance. No visible sclerosis. Normal leaflet mobility. No evidence of aortic valve stenosis. Trivial aortic regurgitation. AORTIC ROOT: Normal diameter and appearance. Ascending aorta is normal in size. PULMONIC VALVE: Normal thickness and mobility. No stenosis. Trivial regurgitation. PERICARDIUM: No evidence of pericardial effusion. IVC: IVC is dilated (2.3 cm) with no collapse. PLEURA: CONCLUSION: 1. Left ventricle is normal in size and exhibits no low normal systolic function. LVEF is estimated at 50%. 2. Normal right ventricular size and systolic function. 3. Mild tricuspid regurgitation. 4. Severely elevated right-sided pressures. RVSP is 65 mmHg. Adult Echocardiography Procedure Report Left Ventricle LVEDD (3.7 - 5.6 cm): 5.28 cm LVESD (2.2 - 4.0 cm): 3.44 cm LVIVS thickness (0.6 - 1.2 cm): 0.76 cm LVPW thickness (0.5 - 1.0 cm): 0.86 cm e': 0.10 m/s E - e': 6.45 LVOT Max Gradient: 8.15 mm[Hg] LVOT Area (cm2): 1.43 m/s Peak Velocity (LVOT): 1.43 m/s Mean Velocity (LVOT): 0.87 m/s LVOT Diameter 2.17 cm Left Atrium LA Volume Index (2D A2C): 30.07 ml/m2 Left Atrium Systolic Dimension: 3.09 cm Mitral Valve MV E to A Ratio: 0.79 Mitral Valve A-Wave Peak Velocity: 0.82 m/s Mitral Valve E-Wave Peak Velocity: 0.65 m/s Right Ventricle Aorta AO Root Diam: 3.27 cm Ascending Ao Diam: 2.91 cm Aortic Valve AoV Area (Peak Rafita): 3.51 cm2, 3.51 cm2 AoV Area (VTI): 3.12 cm2, 3.12 cm2 Peak Velocity(Antegrade Flow): 1.50 m/s Peak Gradient(Antegrade Flow): 9.02 mm[Hg] Mean Velocity(Antegrade Flow): 0.98 m/s Mean Gradient(Antegrade Flow): 4.43 mm[Hg] Velocity Time Integral: 34.14 cm Tricuspid Valve Peak Velocity (Regurgitant Flow): 3.53 m/s, 3.24 m/s Pulmonic Valve Mean Gradient: 2.46 mm[Hg] Mean Velocity: 0.73 m/s Peak Velocity: 1.19 m/s, 1.27 m/s Peak Gradient: 6.47 mm[Hg], 5.68 mm[Hg] Right Atrium Right Atrium Systolic Pressure: 38.40 ml, 38.40 ml Dictated by: Alicia Limon M.D. on 05/29/2024 at 15:46 Approved by: Alicia Limon M.D. on 05/29/2024 at 15:49 Dictated By: ALICIA LIMON Signed By: 05/29/24 1550 DD/ 1549 TD/TT: Communications Tower Technician: Procedure Note Radiology, Radiologist, MD - 05/29/2024 [place] [address] Cardiology Report Signed Patient: DIANA CHAMPION AMR#: [id number] : 1955cct:[id number] Age/Sex: 68 / FADM Date: 05/28/24 Loc: CARD Attending Dr: Nasim Scales M.D. Ordering Physician: Nasim Scales M.D. Date of Service: 05/28/24 Procedure(s): CA echo doppler complete Accession Number(s): [id number] cc: Nasim Scales M.D.; Shaikh Eva Ohara Patient Name: DIANA CHAMPION MR#: [id number] : 1955 Exam Date: 05/28/2024 Ordering Doctor: DR NASIM SCALES M.D. ECHOCARDIOGRAM REPORT PROCEDURE: CA ECHO DOPPLER COMPLETE INDICATIONS: Pulmonary hypertension, COPD, congestive heart failure COMPARISON: None. DESCRIPTION: COMPLETE ECHOCARDIOGRAM Real-time transthoracic echocardiography with 2D, M-mode, spectral and color flow Dopplerperformed. QUALITY: Technical quality was good. LEFT VENTRICLE: Normal chamber size. Normal left ventricular wall thickness. Low normal systolic function. LV EF: Low normal left ventricular ejection fraction, (50%). DIASTOLIC: Normal diastolic function. ATRIAL SEPTUM: Visually appears intact. LEFT ATRIUM: Normal chamber size. RIGHT ATRIUM: Normal chamber size. RIGHT VENTRICLE: Normal chamber size. Normal right ventricularsystolic function. TRICUSPID VALVE: Normal mobility and thickness. No stenosis with mild regurgitation. Doppler studies reveal severely (>60) elevated right sided pressures. RVSP 65 mmHg MITRAL VALVE: Normal mobility and thickness. No evidence of mitralvalve stenosis. There is no mitral annular calcification. Trivial mitral regurgitation. AORTIC VALVE: Normal trileaflet appearance. No visible sclerosis.Normal leaflet mobility. No evidence of aortic valve stenosis. Trivial aortic regurgitation. AORTIC ROOT: Normal diameter and appearance. Ascending aorta is normalin size. PULMONIC VALVE: Normal thickness and mobility. No stenosis. Trivial regurgitation. PERICARDIUM: No evidence of pericardial effusion. IVC: IVC is dilated (2.3 cm) with no collapse. PLEURA: CONCLUSION: 1. Left ventricle is normal in size and exhibits no low normal systolic function. LVEF is estimated at 50%. 2. Normal right ventricular size and systolic function. 3. Mild tricuspid regurgitation. 4. Severely elevated right-sided pressures. RVSP is 65 mmHg. Adult Echocardiography Procedure Report Left Ventricle LVEDD (3.7 - 5.6 cm): 5.28 cm LVESD (2.2 - 4.0 cm): 3.44 cm LVIVS thickness (0.6 - 1.2 cm): 0.76 cm LVPW thickness (0.5 - 1.0 cm): 0.86 cm e': 0.10 m/s E - e': 6.45 LVOT Max Gradient: 8.15 mm[Hg] LVOT Area (cm2): 1.43 m/s Peak Velocity (LVOT): 1.43 m/s Mean Velocity (LVOT): 0.87 m/s LVOT Diameter 2.17 cm Left Atrium LA Volume Index (2D A2C): 30.07 ml/m2 Left Atrium Systolic Dimension: 3.09 cm Mitral Valve MV E to A Ratio: 0.79 Mitral Valve A-Wave Peak Velocity: 0.82 m/s Mitral Valve E-Wave Peak Velocity: 0.65 m/s Right Ventricle Aorta AO Root Diam: 3.27 cm Ascending Ao Diam: 2.91 cm Aortic Valve AoV Area (Peak Rafita): 3.51 cm2, 3.51 cm2 AoV Area (VTI): 3.12 cm2, 3.12 cm2 Peak Velocity(Antegrade Flow): 1.50 m/s Peak Gradient(Antegrade Flow): 9.02 mm[Hg] Mean Velocity(Antegrade Flow): 0.98 m/s Mean Gradient(Antegrade Flow): 4.43 mm[Hg] Velocity Time Integral: 34.14 cm Tricuspid Valve Peak Velocity (Regurgitant Flow): 3.53 m/s, 3.24 m/s Pulmonic Valve Mean Gradient: 2.46 mm[Hg] Mean Velocity: 0.73 m/s Peak Velocity: 1.19 m/s, 1.27 m/s Peak Gradient: 6.47 mm[Hg], 5.68 mm[Hg] Right Atrium Right Atrium Systolic Pressure: 38.40 ml, 38.40 ml Dictated by: Alicia Limon M.D. on 05/29/2024 at 15:46 Approved by: Alicia Limon M.D. on 05/29/2024 at 15:49 Dictated By: ALICIA LIMON Signed By:05/29/24 1550 DD/ 1549 TD/TT: Communications Tower Technician: Generic External Data Provider [facility] Final Result documented in this encounter Visit Diagnoses Not on filedocumented in this encounter Additional Health Concerns Assessment Noted Time PHQ-9 Depression Total Score: 7 11/02/20 23 3:03 PM EST documented as of this encounter Care Teams Automatic Grinder Operator Relationship Specialty Start Date End Date Shaikh Ohara MD [address] [place] [address] PCP - General Internal Medicine 12/28/23 06/09/24 Tapan Barboza MD [address] [place] [address] PCP - General Family Medicine 06/10/24 Ariella Mathis DO [address] [place] [address] Referring Physician Neurology 01/02/24 Mae Reese NP [address] [facility] [place] [address] Nurse Practitioner Family Medicine 06/10/24 documented as of this encounter
--- OUTSIDE RECORDS SUMMARY | 2025-04-30 12:41 | XMS_ITS | Clinical Summary ---
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 Active guaiFENesin (Mucinex) 600 MG 12 hr tablet Take 1,200 mg by mouth in the morning and 1,200 mg before bedtime. Do not crush, chew, or split. . Active albuterol HFA 90 mcg/act inhaler Inhale 2 puffs every 4 (four) hours if needed for shortness of breath. Active Multiple Vitamin (multivitamin) tablet Take 1 tablet by mouth in the morning. Active ferrous sulfate 325 (65 Fe) MG tablet Take 325 mg by mouth in the morning. Take with meals. Active albuterol (2.5 MG/3ML) 0.083% nebulizer solution Take 2.5 mg by nebulization every 6 (six) hours if needed for wheezing. Active furosemide (Lasix) 20 MG tablet Take 20 mg by mouth Daily 06/05/2 024 Active MAGnesium-Oxide 400 (240 Mg) MG tablet Take 400 mg by mouth Daily Active sodium chloride 0.9 % nebulizer solution Take 3 mL by nebulization in the morning and 3 mL before bedtime. Active latanoprost (Xalatan) 0.005 % ophthalmic solution INSTILL 1 DROP INTO EACH EYE AT BEDTIME Active PARoxetine (Paxil) 40 MG tabletIndicatio ns:Moderate episode of recurrent major depressive disorder (HCC) Take 1 tablet (40 mg) by mouth in the morning. 90 tablet 1 Active traZODone (Desyrel) 100 MG tabletIndicatio ns:Moderate episode of recurrent major depressive disorder (HCC) Take 1 tablet (100 mg) by mouth at bedtime TAKE 1 TABLET BY MOUTH AT BEDTIME 90 tablet 1 Active pramipexole (Mirapex) 0.25 MG tabletIndicatio ns:RLS (restless legs syndrome) Take 1 tablet (0.25 mg) by mouth as needed at bedtime (Restless leg) 90 tablet 1 025 2024 Active omeprazole (PriLOSEC) [address] capsuleIndicati ons:Gastroesoph ageal reflux disease without esophagitis Take 1 capsule (20 mg) by mouth every 12 (twelve) hours 180 capsule 1 025 2024 Active trospium (Sanctura XR) 60 MG 24 hour capsule Take 60 mg by mouth Daily Active Ensifentrine (Ohtuvayre) 3 MG/2.5ML suspension every 12 (twelve) hours Active Breztri Aerosphere 160-9-4.8 MCG/ACT aerosol every 12 (twelve) hours Active buPROPion XL (Wellbutrin XL) 150 MG 24 hr tabletIndicatio ns:Moderate episode of recurrent major depressive disorder (HCC) Take 1 tablet (150 mg) by mouth in the morning. Do not crush, chew, or split. 30 tablet 1 025 2024 Active baclofen (Lioresal) 10 MG tabletIndicatio ns:Chronic bilateral low back pain without sciatica Take 1 tablet (10 mg) by mouth in the morning and 1 tablet (10 mg) in the evening and 1 tablet (10 mg) before bedtime. 90 tablet 2 025 2024 Active pregabalin (Lyrica) 75 MG capsuleIndicati ons:Restless leg syndrome Take 1 capsule (75 mg) by mouth in the morning and 1 capsule (75 mg) before bedtime. 60 capsule 3 025 2024 Active Fluticasone-Ume clidin-Vilant (Trelegy Ellipta) 200-62.5-25 MCG/ACT aerosol powder Take 1 puff by mouth in the morning. 2024 Discontinued(I neffective) traMADol (Ultram) 50 MG tablet Take 50 mg by mouth every 12 (twelve) hours 024 2024 Discontinued(T herapy completed) solifenacin (VESIcare) 10 MG tabletIndicatio ns:Urge incontinence Take 1 tablet (10 mg) by mouth Daily 90 tablet 025 2024 Discontinued(I neffective) pregabalin (Lyrica) 75 MG capsuleIndicati ons:Restless leg syndrome Take 1 capsule (75 mg) by mouth in the morning and 1 capsule (75 mg) before bedtime. 60 capsule 2 025 2024 Discontinued(R eorder) baclofen (Lioresal) 10 MG tabletIndicatio ns:Chronic bilateral low back pain without sciatica Take 1 tablet (10 mg) by mouth in the morning and 1 tablet (10 mg) in the evening and 1 tablet (10 mg) before bedtime. 90 tablet 2 025 2024 Discontinued pregabalin (Lyrica) 75 MG capsuleIndicati ons:Restless leg syndrome Take 1 capsule (75 mg) by mouth in the morning and 1 capsule (75 mg) before bedtime. 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 Area is closed, raised, and reddened with thin scab in place. Referral sent to Dermatology. Screening mammogram for breast cancer 02/15/2024 Pneumonia due to infectious organism 02/15/2024 Assessment & Plan (01/16/2025 6:30 AM EDT): Respiratory panel: culture pseudomonas Was sent home on doxy, will have her stop this, and start levoquin 750mg daily for 7 day Recent hospitalization to [facility]: back to back, 01/02/25 and 01/08/25 I have reviewed her hospital notes, labs, discharge info as well Assessment & Plan (01/15/2025 6:58 PM EDT): Respiratory panel: culture pseudomonas Was sent home on doxy, will have her stop this, and start levoquin 750mg daily for 7 day Assessment & Plan (02/15/2024 12:03 PM EDT): Finish atb, steroids, cont oxygen Fluids to thin secretions, aggressive use of incentive spirometer Purse lipped breathing Fu w fawwad in 2 weeks Chronic low back pain without sciatica Assessment & Plan (01/31/2024 11:31 AM EDT): Chronic back pain, acutely worsened for past [...] information on the etiology of her pain Assessment & Plan (01/25/2024 10:45 AM EDT): Chronic back pain, acutely worsened for past 3 weeks. Pain is persistent, worsening. She is [...] order an XR first to r/o compression fracture. She is on lyrica for chronic pain. Added baclofen. I will call in Oxycodone for acute pain control for short period. Patient instructed to let the pain provider know that she was prescribed narcotic for acute pain Chronic respiratory failure with hypoxia 024 Assessment & Plan (04/09/2025 6:31 AM EDT): Is oxygen dependant, non invasive vent at night [facility] is managing outsole flexer Assessment & Plan (02/17/2025 6:09 AM EDT): Is oxygen dependant, non invasive vent at night Chris is managing outsole flexer Assessment & Plan (01/16/2025 10:31 AM EDT): Is oxygen dependant, non invasive vent at night chris Assessment & Plan (01/02/2025 3:26 PM EST): Oxygen level 88-90% w walking, normal 94-95% w oxygen Assessment & Plan (10/07/2024 3:00 PM EST): Following closely with Dr. Perez. Recent exacerbation requiring hospitalization in August. Feels symptoms have improved, is still requiring 3L O2 NC baseline. Currenlty taking Trelegy, Albuterol, Singulai, Mucinex. Assessment & Plan (06/12/2024 11:39 AM EDT): Continue all medications as directed Keep all follow up appointments Keep all referrals and keep in close contact with Dr. Perez Assessment & Plan (02/26/2024 9:29 AM EDT): On 3 L O2 via NC now. She was previously on 2 L She is doing well currently and stated that this is the best she has felt since she had COVID over a year ago. Assessment & Plan (02/15/2024 12:01 PM EDT): Continue with O2 Assessment & Plan (12/28/2023 9:34 AM EST): On O2 but seems like she is not going to need it anymore. Her sats are persistently above 95% Patient asked to use O2 as needed Leukocytosis 12/28/2023 Assessment & Plan (12/28/2023 9:35 AM EST): WBC 20 K when measures last time. However, she was on steroids at that time. Recheck. Hyperuricemia 12/05/2023 Other chronic pain 12/05/2023 Arthropathy of right hip 12/05/2023 Primary osteoarthritis of right knee 12/05/2023 Spinal stenosis, lumbar elke on without neurogenic claudication 12/05/2023 Assessment & Plan (02/17/2025 9:01 AM EDT): Continue with lyrica and pain mgmt Spondylosis of lumbar region without myelopathy or radiculopathy 12/05/2023 Pneumonitis 12/05/2023 Severe persistent asthma, uncomplicated 12/05/19 Assessment & Plan (02/17/2025 6:09 AM EDT): Is under the care of dr perez Current meds for treatment of asthma/COPD: albuterol, trelegy, singulair Assessment & Plan (01/16/2025 6:31 AM EDT): Is under the care of dr perez Current meds for treatment of asthma/COPD: albuterol, trelegy, singulair Assessment & Plan (07/11/2024 8:56 AM EDT): Currently taking Trelegy Singulair Albuterol Was seen on 06/12/24 for Hospital follow up. Is following closely with Pulmonology; Tracheobronchomalacia Assessment & Plan (02/26/2024 9:29 AM EDT): Doing better now. No wheezing on exam. Breathing has improved from before C/w trelegy. Recent hospital admission for PNA, Asthma exacerbation Assessment & Plan (12/28/2023 9:33 AM EST): Doing better now. No wheezing on exam. Breathing has improved from before C/w trelegy. Assessment & Plan (12/05/2023 10:32 AM EST): Patient has severe persistent asthma and was discharged from [facility] 3 days ago for acute respiratory failure with hypoxia sec to Pneumonia. She initially required BIPAP and was admitted to ICU. She was discharged on 2L O2 via NC. Patient came to office today and has increased work of breathing, respiratory distress, no hypoxia but has active bronchospasm with wheezing. Discussed with patient and it was felt that she needs to go to ED for further evaluation and likely be admitted for her asthma exacerbation if deemed necessary. Patient's son will drive her to the hospital right away. Medicare annual wellness visit, subsequent 11/06 Assessment & Plan (11/06/2023 6:14 PM EST): Here for Medicare Wellness. Screened for depression, cognitive impairment, fall risk Ordered cologuard for the patient. Mammogram not due. Will order next appt. Osteoporosis screening 10/04/2023 Arthritis 10/04/2023 Chronic heart failure with preserved ejection fr action 10/04/2023 Assessment & Plan (02/17/2025 6:07 AM EDT): Last ECHO currently in the chart is form 05/29: EF 50%, significantly elevated right sided pressure at 65 [facility]iology Assessment & Plan (01/16/2025 10:31 AM EDT): Last ECHO currently in the chart is form 7: EF 50%, significantly elevated right sided pressure at 65 [facility] Assessment & Plan (07/11/2024 8:54 AM EDT): Follows Cardiology- [facility] Was seen in May 2024 Lasix 20mg Chronic kidney disease, stage 3a 10/04/2023 Assessment & Plan (01/16/2025 10:32 AM EDT): Monitor labs Used to see dr bermudez, told she did not have to return to see him Assessment & Plan (01/02/2025 7:25 AM EST): Monitor labs Assessment & Plan (10/07/2024 2:54 PM EST): Follows with Dr. Bermudez. Monitor CMP, avoid nephrotoxic agents. Chronic obstructive pulmonary disease (COPD) Assessment & Plan (04/09/2025 6:31 AM EDT): Current meds: albuterol nebs and inhaler, trelegy, oxygen Follows with Pulmonology [facility] Assessment & Plan (02/17/2025 6:08 AM EDT): Current meds: albuterol nebs and inhaler, trelegy, oxygen Follows with Pulmonology Chris Assessment & Plan (01/02/2025 3:25 PM EST): Chris outsole flexer Assessment & Plan (11/28/2024 1:37 PM EST): Was admitted to [facility] for COPD with acute exacerbation. Was [...] NC. This is her baseline. See's Dr. Perez again in January, advised pt to call his office to see if he wanted to see her outpatient sooner for hospital follow up. Assessment & Plan (11/12/2024 11:08 AM EST): 5 days ago woke up, body aches, [...] patient to be seen in Emergency Room. Assessment & Plan (02/15/2024 12:02 PM EDT): Cont current nebs and fu with dr perez Malignant neoplasm of rectosigmoid junction 09/07 Assessment & Plan (01/02/2025 7:24 AM EST): Hx of this Depression 10/04/2023 Assessment & Plan (04/09/2025 12:37 PM EDT): Current med paxil Will add on medication Assessment & Plan (01/16/2025 10:33 AM EDT): Currently taking paxil, does feel that she would benefit from a higher dose. D/t depression. Feels overwhelmed at times with all her health issues Increase paroxetine to 40mg daily Fu in 4 weeks Assessment & Plan (11/06/2023 6:09 PM EST): Patient currently on Trazodone and Paxil. Reports depressed mood, anhedonia, poor sleep. Increase Paxil to 30 mg. Trazodone to 100 mg. Patient counseled and educated on adverse effects, drug interactions and to reach out to office/pharmacy if questions or concerns related to new medications. Gastroesophageal reflux disease 10/04/2023 Assessment & Plan (02/17/2025 6:09 AM EDT): Recommendations: freq small meals, nothing to eat or drink at least 2 hours prior to bed, limit caffeine, alcohol, as well as spicy foods Meds to limit or avoid if possible: NSAIDS Elevate HOB if possible Current meds: omeprazole Assessment & Plan (01/02/2025 7:24 AM EST): Recommendations: freq small meals, nothing to eat or drink at least 2 hours prior to bed, limit caffeine, alcohol, as well as spicy foods Meds to limit or avoid if possible: NSAIDS Elevate HOB if possible Current meds: omeprazole Hyperlipidemia 10/04/2023 Assessment & Plan (07/11/2024 8:55 AM EDT): Currently not on any medications: Lifestyle and dietary modifications. Recheck lipid pane today. Iron deficiency anemia 10/04/2023 Morbid (severe) obesity due to excess calories 1 12/04/2022 Assessment & Plan (04/09/2025 6:31 AM EDT): Discussed with patient their BMI (actual, verses recommended). We have also discussed lifestyle modifications: attempts to perform physical activity as chronic conditions allow, also to monitor dietary intake: increasing protein/fruits/veggies and lowering carb intake (unless contraindicated). Limit sodas, juices, and sugary drinks. D/t her chronic respiratory status increase in physical activity is nearly impossible Assessment & Plan (02/17/2025 6:10 AM EDT): Discussed with patient their BMI (actual, verses recommended). We have also discussed lifestyle modifications: attempts to perform physical activity as chronic conditions allow, also to monitor dietary intake: increasing protein/fruits/veggies and lowering carb intake (unless contraindicated). Limit sodas, juices, and sugary drinks. D/t her chronic respiratory status increase in physical activity is nearly impossible Assessment & Plan (01/16/2025 6:35 AM EDT): Discussed with patient their BMI (actual, verses recommended). We have also discussed lifestyle modifications: attempts to perform physical activity as chronic conditions allow, also to monitor dietary intake: increasing protein/fruits/veggies and lowering carb intake (unless contraindicated). Limit sodas, juices, and sugary drinks. D/t her chronic respiratory status increase in physical activity is nearly impossible Assessment & Plan (01/02/2025 7:25 AM EST): Discussed with patient their BMI (actual, verses recommended). We have also discussed lifestyle modifications: attempts to perform physical activity as chronic conditions allow, also to monitor dietary intake: increasing protein/fruits/veggies and lowering carb intake (unless contraindicated). Limit sodas, juices, and sugary drinks. Assessment & Plan (10/07/2024 2:49 PM EST): Discussed with patient their BMI (actual, verses recommended). We have also discussed lifestyle modifications: attempts to perform physical activity as chronic conditions allow, also to monitor dietary intake: increasing protein/fruits/veggies and lowering carb intake (unless contraindicated). Limit sodas, juices, and sugary drinks. Assessment & Plan (07/11/2024 8:57 AM EDT): Discussed with patient their BMI (actual, verses recommended). We have also discussed lifestyle modifications: attempts to perform physical activity as chronic conditions allow, also to monitor dietary intake: increasing protein/fruits/veggies and lowering carb intake (unless contraindicated). Limit sodas, juices, and sugary drinks. Post-menopausal 10/04/2023 Restless leg syndrome 10/04/2023 Urge incontinence 10/04/2023 Assessment & Plan (01/02/2025 7:25 AM EST): Take vesicare Vitamin D deficiency 10/04/2023 Critical illness myopathy 05/08/2023 History of COVID-19 05/08/2023 Other secondary pulmonary hypertension Assessment & Plan (01/16/2025 6:34 AM EDT): Noted on ECHO findings 05/29 Primary osteoarthritis of right hip 03/26/2023 Chronic sinusitis 04/01/2014 Essential hypertension 04/01/2014 Assessment & Plan (01/16/2025 6:33 AM EDT): DASH diet Limit caffeine Contact office if chest pain, pressure, dizziness, shortness of breath, swelling legs Recommend slow position changes Current meds: does not take any Assessment & Plan (01/02/2025 7:23 AM EST): DASH diet Limit caffeine Contact office if chest pain, pressure, dizziness, shortness of breath, swelling legs Recommend slow position changes Current meds: does not take any Assessment & Plan (02/15/2024 12:02 PM EDT): stable Assessment & Plan (12/28/2023 9:33 AM EST): Taken off of anti hpyertensives. Monitor w/o medications. Follow up closely. Resolved Problems Problem Noted Date Diagnosed Date Resolved Date Flu-like symptoms 01/02/2025 01/16/2025 Assessment & Plan (01/02/2025 3:28 PM EST): Neg, still strong clinical suspicion for flu, d/t severe pulmonary conditions and weakness will send her to [facility] ER for evaluation DD: pneumonia, covid, flu, RSV Severe persistent asthma with exacerbation 04/03/2024 01/02/2025 Assessment & Plan (04/11/2024 2:33 PM EDT): Severe persistent asthma with exacerbation due to right lower lobe pneumonia. She seem to had improved with prednisone and oral Abx on follow up appointment last week. She reports worsening cough, chest congestion, dyspnea and feels she is worse than before. Given her prior hx of repeated hospitalization, severe asthma, failure to response to outpatient therapy with oral abx and prednisone, I directed her to go to [facility] for direct admission. I spoke to case management myself to provide her information and reason for direct admit. Patient stable to go herself and does not require EMS transport. JEANNE (acute kidney injury) 12/28/2023 Assessment & Plan (12/28/2023 9:36 AM EST): Normal renal function at baseline but Cr was elevated when last checked. She had just covered from prolonged hospital admission. Its entirely possible that she may have developed CKD. Check BMP. Atrial fibrillation 12/05/2023 12/28/19 24 Malaise 12/05/2023 01/16/2025 Status post total right knee replacement 12/05/2023 01/16/2025 Hospital discharge follow-up 12/05/2023 01/16/2025 Assessment & Plan (06/12/2024 11:38 AM EDT): Continue all medications as directed Keep all follow up appointments Keep all referrals and keep in close contact with Dr. Perez Assessment & Plan (04/17/2024 9:46 AM EDT): Recent hospital stay for observation. Observation for [...] with Pulm and she will discuss possibly fpc prednisone for her severe Asthma/COPD. Patient instructed to go to ED if she experiences worsening SOB. Assessment & Plan (02/26/2024 9:28 AM EDT): Recent hospital admission in January for Pneumonia, acute on chronic resp failure with hypoxia. She is now on 3 L O2 via NC, increased from her baseline of 2 L. She was seen by Pulm last week. No changes made. Currently on Trelegy for severe persistent asthma. Patient overall feeling well. Denies dyspnea, cough. She is compliant with her medications. Assessment & Plan (12/05/2023 10:34 AM EST): Recent hospital admission at [facility] for acute resp failure due to Pneumonia, Asthma exacerbation. She required BIPAP therapy initially and was discharged on 2 L O2 via NC. Patient came today for hospital discharge follow up but was noted to be lightheaded with orthostatic hypotension, respiratory distress with increased work of breathing and decision was made after consultation with the patient that she needs to go to ED. I will also inform the ED provider at [facility] and update them on the reason for ED visit. Asthma 10/04/2023 01/16/2025 Assessment & Plan (03/27/2024 9:57 AM EDT): Patient has severe persistent asthma, with frequent exacerbations and hospital admissions for it. She also has chronic resp failure with hypoxia and is on 3 LO2 She is here today with increased cough/sputum and Sob with wheezing. Has asthma exacerbation. Will order CXR to r/o PNA. Will prescribed PO prednisone. Patient instructed to go to ED if no improvement or worsening respiratory status. At moderate risk for fall 10/04/2023 Benign essential HTN 10/04/2023 025 Assessment & Plan (07/11/2024 8:54 AM EDT): Currently not taking any medications. Bp is well controlled. Averages 120's-130's. Chronic back pain greater th an 3 months duration 10/04/2023 01/02/2025 Low back pain 10/04/2023 01/16/2025 Positive depression screening 10/04/2023 01/16/2025 Right hip pain 10/04/2023 04/09/2025 Moderate persistent asthma with exacerbation 01/02/2025 Assessment & Plan (11/06/2023 6:08 PM EST): Patient was treated with Oral steroids for asthma exacerbation. She then follow up with Pulmonology who prescribed her oral antibiotics and prolonged steroid taper. She is feeling better than before but still SOB, wheezing and has difficulty breathing and feels tight. She has two more days of steroids and finished her oral abx prescribed by her outsole flexer. Continues to have bronchospasm, wheezing, chest tightness and will benefit from continuing pulse steroid taper as outpatient. Patient educated to go to ED if worsening SOB, hypoxia and no improvement with prednisone. C/w albuterol q4. At high risk of poor outcome. Assessment & Plan (10/04/2023 3:17 PM EST): Asthma exacerbation likely due to bacterial URTI/Otitis media. Cough, SOB, wheezing and chest congestion noted on exam. Patient has severe persistent asthma and at high risk of worsening symptoms/outcome. She will be started on PO Prednisone along with along with PO Augmentin for Otitis media. Patient educated/instructed on worrisome signs and symptoms and to have a low threshold for an ED evaluation if her symptoms worsen or do not improvement with treatment prescribed today She was also instructed to use Ventolin q4-6 hours to help overcome bronchospasm/asthma exacerbation Non-recurrent acute suppurat khai otitis media of both ears without spontaneous rupture of tympanic membranes 10/04/2023 01/02/2025 Assessment & Plan (10/04/2023 3:15 PM EST): B/l otitis media noted on exam. Will call in oral Augmentin for patient. Disc displacement, lumbar 03/26/2019 Overview (12/05/2023): Added automatically from request for surgery [id number] Added automatically from request for surgery [id number] Arthritis of right knee 10/17/201802/2025 Lumbar spondylosis 05/22/2018 Overview (12/05/2023): Added automatically from request for surgery [id number] Added automatically from request for surgery [id number] Encounters Date Type Department Care Team Description 04/29/2025 Abstract [facility] [address] [place] [address] Kaylene López NP 04/29/2025 Refill [facility] [address] [place] [address] Kaylene López NP Restless leg syndrome 04/27/2025 Refill [facility] [address] [place] [address] Kaylene López NP Chronic bilateral low back pain without sciatica 04/23/2025 Refill [facility] [address] [place] [address] Kaylene López NP Moderate episode of recurrent major depressive disorder (HCC) (Primary Dx) 04/23/2025 Telephone [facility] [address] [place] [address] Kaylene López NP 04/09/2025 11:00 AM EDT Office Visit [facility] [address] [place] [address] Kaylene López NP Moderate episode of recurrent major depressive disorder (HCC) (Primary Dx); Pulmonary emphysema, unspecified emphysema type (HCC); Chronic respiratory failure with hypoxia (HCC); Morbid (severe) obesity due to excess calories (CMS-HCC); Restless leg syndrome 04/09/2025 Bamboo flowsheet [facility] [address] [place] [address] Kaylene López NP 04/06/2025 Travel 03/27/2025 Telephone [facility] [address] [place] [address] Kaylene López NP 03/10/2025 Clinisync Result Encounter [facility] External Department Unsolicited Provider, Generic External Data 03/03/2025 Clinisync Result Encounter [facility] External Department Unsolicited Kaylene López NP 02/26/2025 Refill [facility] [address] [place] [address] Kaylene López NP Gastroesophageal reflux disease without esophagitis 02/17/2025 8:40 AM EDT Office Visit [facility] [address] [place] [address] Kaylene López, RIKKI Edema of both lower extremities (Primary Dx); Spinal stenosis, lumbar region without neurogenic claudication; Chronic heart failure with preserved ejection fraction (HCC); Chronic respiratory failure with hypoxia (HCC); Severe persistent asthma, uncomplicated (HCC); Gastroesophageal reflux disease, unspecified whether esophagitis present; Morbid (severe) obesity due to excess calories ([facility]-HCC); RLS (restless legs syndrome); Candidiasis 02/17/2025 Bamboo flowsheet [facility] [address] [place] [address] Kaylene López NP 02/14/2025 Travel 02/12/2025 Patient Outreach [facility] [id number] [place] [address] Tony Butts MA 02/05/2025 Patient Outreach [facility] [id number] [place] [address] Tony Butts MA 01/29/2025 Patient Outreach [facility] [address] [place] [address] Tony Butts MA 01/28/[address] [facility] [facility] [address] [place] [address] Kaylene López, RIKKI Chronic bilateral low back pain without sciatica from Last 3 Months Immunizations Immunization Administration Dates Next Due Influenza, High Dose Seasona l, Preservative Free 09/06/2024 Influenza, High-dose Seasona l, Quadrivalent, Preservative Free 08/26/2023,08/04/2022,08/06/2021 Influenza, Split (incl. af[place] fied surface antigen) 08/09/2017 Influenza, Unspecified 09/06/2024,2022,08/04/2022,08/06,08/07/2020,08/09/2019,08/08/2018 ,08/10/2017 Influenza, injectable, quadr ivalent, preservative free 08/07/2020,08/09/2019,08/08/2018,08/10 Novel [id number], preservative-free 09/02/2009 Pneumococcal Conjugate PCV 20 08/09/2023 Pneumococcal Polysaccharide PPSV23 10/19/2018 RSV, recombinant, protein gordon bunit RSVpreF, adjuvant reconstitu, 120mcg/0.5mL, PF (Arexvy) 08/18/2023 Zoster, Recombinant 11/01/2022,08/27/2022 Family History Medical History Relation Name Comments COPD Father Heart disease Father Hyperlipidemia Father Hypertension Father Stroke Father Heart disease Mother Hyperlipidemia Mother Hypertension Mother Mental illness Mother Relation Name Status Comments Daughter x2 Father Mother Son x5 Social History Tobacco Use Types Packs/Day Years Used Date Smoking Tobacco: Never Passive Smoke Exposure: Never Smokeless Tobacco: Never Tobacco Cessation:Counseling Given: Not Answered Alcohol Use Standard Drinks/Week Comments Never 0 [...] week 11/25/2024 How often do you attend [facility] or jew services? More than 4 times per year 11/25/2024 Do you belong to any clubs o r organizations such as rastafari groups, unions, fraternal or athletic groups, or [...] Recorded Patient Health Questionnaire-2 Score 0 07/11/2024 [facility] - [...] place to sleep or slept in a intermediate (including now)? No 10/26/2023 Housing Stability Vital Sign Answer Dhruv e Recorded In the last 12 months, was t here a time when you were not able to pay the mortgage or rent on time? No 11/25/2024 In the past 12 months, how m any times have you moved where you were living? 0 11/25/2024 At any time in the [facility], were you homeless or living in a intermediate (including now)? No 11/25/2024 Comments Unknown Sex and Gender Information Value Date Recorded Sex Assigned at Not on file Legal Sex Female 7:03 PM EDT Gender Identity Not on file Sexual Orientation Not on file Last Filed Vital Signs Vital Sign Reading Time Taken Comments Blood Pressure 122/70 04/09/2025 11:03 AM EDT Pulse 73 04/09/2025 11:03 AM EDT Temperature 36.8 C (98.2 F) 04/09/2025 11:03 AM EDT Respiratory Rate 22 04/09/2025 11:03 AM EDT Oxygen Saturation 93% 04/09/2025 11:03 AM EDT Inhaled Oxygen Concentration - - Weight 109 kg (240 lb) 04/09/2025 11:03 AM EDT Height 162.6 cm (5' 4 ) 11/28/2024 1:08 PM EST Body Mass Index 41.2 11/28/2024 1:08 PM EST Plan of Treatment Upcoming Encounters Date Type Department Care Team (Late st Contact Info) Description 05/19/2025 9:00 AM EDT Office Visit [facility] [address] [place] [address] Kaylene López NP [address] [place] [address] 06/17/2025 3:05 PM EDT Office Visit [facility] [address] [place] [address] Denise Lazo MD [address] [place] [address] 12/15/2026 9:00 AM EST Office Visit [facility] [address] [place] [address] Yuri Bowers PA [address] [place] [address] Health Maintenance Due Date Last Done Comments CT Colonography 1955 FIT-DNA 1955 FIT 1955 FOBT 1955 Sigmoidoscopy 1955 Mammogram 03/03/2026 03/03/2025, 02/05, 12/15/2022, Additional history exists Diabetes: Urine Protein Screening 04/09/2026 Postponed from 1975 (Other Medical Reasons) Colonoscopy 12/08/2032 12/08/2022 Colorectal Cancer Screening 12/08/2032 Pneumococcal Vaccine: 65+ Years Completed 08/09/2023, 10/19/2018 Influenza Vaccine Completed 09/06/2024, , 08/26/2023, Additional history exists Diabetes: Hemoglobin A1C Discontinued Diabetes: Retinopathy Screening Discontinued Goals Goal Patient Goal Type Associated Problems Recent Progress Patient-Stated? Author Help patient manage antidepressant medication Care Plan Patient on antidepressant monitoring plan Katerina Carrington Procedures Procedure Name Priority Date/Time Associated Diagnosis Comments BLOOD CULTURE 2 Routine 03/10/2025 10:32 PM EDT BLOOD CULTURE 1 Routine 03/10/2025 10:25 PM EDT BI MAMMOGRAM SCREENING BILATERAL 03/03/2025 4:42 PM EDT from Last 3 Months Results * BLOOD CULTURE 2 (03/10/2025 10:32 PM EDT) BLOOD CULTURE 2 Blood Culture 2 NG5D NO GROWTH AT 5 DAYS.^NO GROWTH AT 5 DAYS. TB 03/10/2025 10:3 2 PM EDT 03/10/2025 10:37 PM EDT Sally [facility] - 03/16/2025 3:22 PM EDT Generic External Data Provider LAB BLOOD ORDERAB LES Final Result [facility] TB * BLOOD CULTURE 1 (03/10/2025 10:25 PM EDT) BLOOD CULTURE 1 Blood Culture 1 NG5D NO GROWTH AT 5 DAYS.^NO GROWTH AT 5 DAYS. TB 03/10/2025 10:2 5 PM EDT 03/10/2025 10:36 PM EDT Narrative [facility] - 03/16/2025 3:21 PM EDT us Generic External Data Provider LAB BLOOD ORDERAB LES Final Result [facility] * Bilateral screening mammogram (03/03/2025 4:42 PM EDT) Anatomical Region Laterality Modality Breast Bilateral Mammography 03/03/2025 4:42 PM EDT Narrative 03/03/2025 4:43 [place] [address] Mammography Report Signed Patient: DIANA CHAMPION MR#: [id number] : 1955 Acct:[id number] Age/Sex: 69 / F ADM Date: 03/03/25 Loc: MAMMO Attending Dr: Kaylnee López NP Ordering Physician: Kaylene López NP Results: Date of Service: 03/03/25 Follow Up: Procedure(s): MM screening mammo BI Accession Number(s): [id number] cc: Kaylene López NP Patient Name: DIANA CHAMPION MR#: [id number] : 1955 Exam Date: 03/03/2025 Ordering Doctor: CLEO López CNP RADIOLOGY REPORT PROCEDURE: MM SCREENING MAMMO BI COMPARISON: MM TOMOSYNTHESIS SCREENING BI, 02/28/2024. MG MAMM SCREEN 3D PRATEEK CAD, 12/15/2022. MG MAMM SCREEN 3D PRATEEK CAD, 11/26/2021. MG MAMM PRATEEK SCRN W CAD DIG, 12/16/2013. INDICATIONS: Screening Calculator Name NCI Breast Cancer Risk Assessment Tool 5 Year Breast Cancer Risk 1.20% Lifetime Breast Cancer Risk 4.00% Personal Breast Cancer No Personal Ovarian Cancer No Treatments Excision, radiation, chemotherapy Family Cancers None LOCATION: [facility] BREAST COMPOSITION: The breasts are almost entirely fatty. FINDINGS: DIAGNOSTIC CATEGORY 1--NEGATIVE. RIGHT BREAST: No significant suspicious finding. LEFT BREAST: No significant suspicious finding. RECOMMENDATIONS: ROUTINE MAMMOGRAM AND CLINICAL EVALUATION IN 12 MONTHS. PLEASE NOTE: A NORMAL MAMMOGRAM DOES NOT EXCLUDE THE POSSIBILITY OF BREAST CANCER. A CLINICALLY SUSPICIOUS PALPABLE LUMP SHOULD BE BIOPSIED. Dictated by: Marcos Medina DO on 03/03/2025 at 16:38 Approved by: Marcos Medina DO on 03/03/2025 at 16:42 Dictated By: Marcos Medina M.D. Signed By: 03/03/251642 DD/ 41 TD/TT: Area Coordinator: Procedure Note Radiology, Radiologist, MD - 03/03/2025 [place] [address] Mammography Report Signed Patient: DIANA CHAMPION AMR#: [id number] : 1955cct:[id number] Age/Sex: 69 / FADM Date: 03/03/25 Loc: MAMMO Attending Dr: Kaylene López NP Ordering Physician: Kaylene López NPResults: Date of Service: 03/03/25Follow Up: Procedure(s): MM screening mammo BI Accession Number(s): [id number] cc: Kaylene López NP Patient Name: DIANA CHAMPION MR#: [id number] : 1955 Exam Date: 03/03/2025 Ordering Doctor: CLEO López CNP RADIOLOGY REPORT PROCEDURE: MM SCREENING MAMMO BI COMPARISON: MM TOMOSYNTHESIS SCREENING BI, 02/28/2024. MG MAMM OSBRYO4C PRATEEK CAD, 12/15/2022. MG MAMM SCREEN 3D PRATEEK CAD, 11/26/2021. MG MAMM BILSCRN W CAD DIG, 12/16/2013. INDICATIONS: Screening Calculator Name NCI Breast Cancer Risk Assessment Tool 5 Year Breast Cancer Risk 1.20% Lifetime Breast Cancer Risk 4.00% Personal Breast Cancer No Personal Ovarian Cancer No Treatments Excision, radiation, chemotherapy Family Cancers None LOCATION: [facility] BREAST COMPOSITION: The breasts are almost entirely fatty. FINDINGS: DIAGNOSTIC CATEGORY 1--NEGATIVE. RIGHT BREAST: No significant suspicious finding. LEFT BREAST: No significant suspicious finding. RECOMMENDATIONS: ROUTINE MAMMOGRAM AND CLINICAL EVALUATION IN 12 MONTHS. PLEASE NOTE: A NORMAL MAMMOGRAM DOES NOT EXCLUDE THE POSSIBILITY OFBREAST CANCER. A CLINICALLY SUSPICIOUS PALPABLE LUMP SHOULD BE BIOPSIED. Dictated by: Marcos Medina DO on 03/03/2025 at 16:38 Approved by: Marcos Medina DO on 03/03/2025 at 16:42 Dictated By: Marcos Medina M.D. 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
--- OUTSIDE RECORDS SUMMARY | 2025-04-30 12:41 | XMS_ITS | Encounter Summary ---
Author Organization [facility] Address [address] [place] [address] Care Team Providers Care Optimization Consultant Name Role Phone Shaikh BONNY Ohara Primary Care Provider [phone] Ariella Mathis DO Unavailable [phone] Tapan Barboza MD Primary Care Provider Mae Reese CAR SERVICER Unavailable [phone] Encounter Details Date Type Department Care Team (Late st Contact Info) Description 02/13/2024 Clinisync Result Encounter [facility] External Department Unsolicited Shaikh Ohara MD [address] [place] [address] Social History Tobacco Use Types Packs/Day Years [...] week 10/26/2023 How often do you attend [facility] or caodaism services? More than 4 times per year 10/26/2023 Do you belong to any clubs o r organizations such as scientologist groups, unions, fraternal or athletic groups, or [...] Recorded Patient Health Questionnaire-2 Score 0 01/25/2024 [facility] [place] [facility] Occupat ional Health - Occupational Stress [...] place to sleep or slept in a usp (including now)? No 10/26/2023 Comments Unknown Sex [...] Visit [facility] [address] [place] [address] Kaylene López NP [address] [place] [phone] 06/17/2025 3:05 PM EDT Office Visit [facility] [address] [place] [address] Denise Lazo MD [address] [place] [address] 12/15/2026 9:00 AM EST Office Visit [facility] [address] [place] [address] Yuri Bowers PA [address] [facility] [address] [place] [address] documented as of this encounter Procedures Procedure Name Priority Date/Time Associated Diagnosis Comments MR LUMBAR SPINE WO CON 02/13/2024 2:06 PM EDT documented in this encounter Results * MR LUMBAR SPINE WO CON (02/13/2024 2:06 PM EDT) Anatomical Region Laterality Modality Other 02/13/2024 2:06 PM EDT Narrative 02/13/2024 2:08 PM EDT [facility] [place] [id number] Magnetic Resonance Report Signed Patient: DIANA CHAMPION MR#: [id number] : 1955 Acct:[id number] Age/Sex: 68 / F ADM Date: 02/13/24 Loc: MRI Attending Dr: Shaikh Lev Velasquez Ordering Physician: Shaikh Eva Ohara Date of Service: 02/13/24 Procedure(s): MR lumbar spine wo con Accession Number(s): [id number] cc: Shaikh Eva Ohara [address] [address] Patient Name: DIANA CHAMPION MRN: [id number] date: 1955 Sex: F Assigned Patient Location: MRI Current Patient Location: MRI Accession/Order Number: [id number] Exam Date: 02/13/2024 10:45 Report Date: 02/13/2024 14:06 At the request of: SHAIKH LEV Procedure: MR lumbar spine wo con EXAMINATION: MR lumbar spine wo con HISTORY: chronic bilateral low back pain without sciatica COMPARISON: 09/05/2023 TECHNIQUE: A variety of imaging planes and parameters were utilized for visualization of suspected pathology. FINDINGS: For the purposes of numbering, sagittal T2 image # 8 extends from the T11 vertebral body superiorly to the S3 level inferiorly. PARASPINAL AREA: Normal with no visible mass. BONES: Rotatory dextroscoliosis. Moderate diffuse degenerative spondylosis. Posterior decompression bilateral transpedicular fusion L5-S1. Interbody spacer L5-S1 CORD/CAUDA EQUINA: Normal caliber, contour, and signal intensity. 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 L1-L2: Mild to moderate disc space narrowing and disc desiccation, left greater than right. Moderate left disc/osteophyte complex. Mild trefoil narrowing of the central canal. No right foraminal stenosis. Moderate narrowing of the left neural foramen L2-L3: Moderate left disc space narrowing. Moderate left posterior disc/osteophyte complex and facet osteoarthropathy. Mild trefoil narrowing the central canal. No right foraminal stenosis. Moderate to severe left foraminal stenosis L3-L4: Moderate disc/osteophyte complex and facet osteoarthropathy. No central canal stenosis. Mild to moderate bilateral foraminal stenosis. L4-L5: Disc desiccation. No disc bulge or herniation. No central or foraminal stenosis L5-S1: Posterior decompression and fusion. Interbody spacer. No disc bulge or herniation. No central or foraminal stenosis. MR/MR lumbar spine wo con IMPRESSION: Rotatory dextroscoliosis Moderate to severe degenerative changes resulting in left L1-2 and L2-L3 and bilateral L3-L4 foraminal stenosis Electronically authenticated by: BRITTANY VANESSA Date: 02/13/2024 14:06 Dictated By: Brittany Vanessa M.D. Signed By: 02/13/24 1408 DD/ 1406 TD/TT: Educational Program Director: Procedure Note Radiology, Radiologist, MD - 02/13/2024 [place] [address] Magnetic Resonance Report Signed Patient: DIANA CHAMPION AMR#: [id number] : 6Acct:[id number] Age/Sex: 68 / FADM Date: 02/13/24 Loc: MRI Attending Dr: Shaikh Lev Velasquez Ordering Physician: Shaikh Eva Ohara Date of Service: 02/13/24 Procedure(s): MR lumbar spine wo con Accession Number(s): [id number] cc: Shaikh Eva Ohara [place] [address] Patient Name: DIANA CHAMPION MRN: [id number] date: 1955 Sex: F Assigned Patient Location: MRI Current Patient Location: MRI Accession/Order Number: [id number] Exam Date: 02/13/2024 10:45 Report Date: 02/13/2024 14:06 At the request of: SHAIKH LEV Procedure: MR lumbar spine wo con EXAMINATION: MR lumbar spine wo con HISTORY: chronic bilateral low back pain without sciatica COMPARISON: 09/05/2023 TECHNIQUE: A variety of imaging planes and parameters were utilized for visualization of suspected pathology. FINDINGS: For the purposes of numbering, sagittal T2 image # 8 extends from the T11 vertebral body superiorly to the S3 level inferiorly. PARASPINAL AREA: Normal with no visible mass. BONES: Rotatory dextroscoliosis. Moderate diffuse degenerativespondylosis. Posterior decompression bilateral transpedicular fusion L5-S1. Interbody spacer L5-S1 CORD/CAUDA EQUINA: Normal caliber, contour, and signal intensity. 1.8 cmarea of fluid signal posterior to the S2 body likely incidental Tarlov cyst DISC LEVELS: 12-L1: Early degenerative disc disease is present without focal protrusionor neural impingement. L1-L2: Mild to moderate disc space narrowing and disc desiccation, left greater than right. Moderate left disc/osteophyte complex. Mild trefoil narrowingof the central canal. No right foraminal stenosis. Moderate narrowing of theleft neural foramen L2-L3: Moderate left disc space narrowing. Moderate left posterior disc/osteophyte complex and facet osteoarthropathy. Mild trefoil narrowingthe central canal. No right foraminal stenosis. Moderate to severe leftforaminal stenosis L3-L4: Moderate disc/osteophyte complex and facet osteoarthropathy. Nocentral canal stenosis. Mild to moderate bilateral foraminal stenosis. L4-L5: Disc desiccation. No disc bulge or herniation. No central orforaminal stenosis L5-S1: Posterior decompression and fusion. Interbody spacer. No disc bulgeor herniation. No central or foraminal stenosis. MR/MR lumbar spine wo con IMPRESSION: Rotatory dextroscoliosis Moderate to severe degenerative changes resulting in left L1-2 and L2-L3and bilateral L3-L4 foraminal stenosis Electronically authenticated by: BRITTANY VANESSA Date: 02/13/2024 14:06 Dictated By: Brittany Vanessa M.D. Signed By:02/13/24 1408 DD/ 1406 TD/TT: Educational Program Director: us Shaikh Lev [facility] Final Result documented in this encounter Visit Diagnoses Not on filedocumented in this encounter Additional Health Concerns Assessment Noted Time PHQ-9 Depression Total Score: 7 11/02/20 23 3:03 PM EST documented as of this encounter Care Teams Optimization Consultant Relationship Specialty Start Date End Date Shaikh Ohara MD [address] [place] [address] PCP - General Internal Medicine 12/28/23 06/09/24 Tapan Barboza MD [address] [place] [address] PCP - General Family Medicine 06/10/24 Ariella Mathis DO [address] [place] [address] Referring Physician Neurology 01/02/24 Mae Reese NP [address] [place] [address] Nurse Practitioner Family Medicine 06/10/24 documented as of this encounter
--- OUTSIDE RECORDS SUMMARY | 2025-04-30 12:41 | XMS_ITS | Referral Summary ---
Author Organization [facility] Address [address] [place] [address] Care Team Providers Care Ham Facer Name Role Phone Kaylene López MD Primary Care Provider Allergies Active Allergy Reactions Criticality Noted Date [...] with Pulm and she will discuss possibly long-term prednisone for her severe Asthma/COPD. Patient instructed [...] finished her oral abx prescribed by her planning lead. Continues to have bronchospasm, wheezing, chest tightness [...] (03/23/2023): Added automatically from request for surgery [id number] Arthritis of right knee 10/17/2018 Lumbar spondylosis 05/22/2018 Overview (03/23/2023): Added automatically from request for surgery [id number] Disorder of sacrum 01/15/2018 Overview (03/23/2023): Added automatically from request for surgery [id number] Asthma 04/01/2014 Chest pain 04/01/2014 Chronic obstructive lung disease 04/01/2014 Chronic sinusitis 04/01/2014 Dyspnea 04/01/2014 Edema 04/01/2014 Essential hypertension 04/01/2014 Gastroesophageal reflux disease 04/01/2014 Hyperlipidemia 04/01/2014 Type 2 diabetes mellitus without complication 05/08/2023 Overview (05/08/2023): Removal Reason: Patient states no DM hx Left hip pain 07/18/2010 Social History Tobacco Use Types Packs/Day Years [...] 01/23/2025 12:03 PM EDT Plan of Treatment Not on file Insurance [place]ICAID [place] MEDICARE ADVANTAGE Care Teams Ham Facer Relationship Specialty Start Date End Date Kaylene López MD [facility] [place] [address] PCP - General Nurse Practitioner 01/22/25
--- OUTSIDE RECORDS SUMMARY | 2025-04-30 12:41 | XMS_ITS | Patient Health Record ---
Author Organization [facility] in [place] Address [address] [place] [address] Care Team Providers Care Coding Compliance Manager Name Role Phone Brianceleste CLEOKaylene Primary Care Provider Unavail able Bo Mcclain Unavailable [phone] Kwabena Zepeda Unavailable [phone] Allergies No Known Allergies Results Component Value Reference Range Notes CT chest wo con Reviewed date:11/13/2024 02:55:20 PM Interpretation: Performing Lab: Notes/Report: Source Facility: [place] [address] CT Scan Report Signed Patient: DIANA CHAMPION MR#: [id number] : 1955 Acct:[id number] Age/Sex: 69 / F ADM Date: 11/12/24 Loc: MS 231-[address]: Shaikh Lev Velasquez Ordering Physician: Bo Mcclain D.O. Date of Service: 11/13/24 Procedure(s): CT chest wo con Accession Number(s): [id number] cc: AIDA BLANC [place] [id number] Patient Name: DIANA CHAMPION MRN: [id number] date: 1955 Sex: F Assigned Patient Location: MS Current Patient Location: MS Accession/Order Number: [id number] Exam Date: 11/13/2024 13:54 Report Date: 11/13/2024 14:19 At the request of: BO MCCLAIN Procedure: CT chest wo con EXAMINATION: CT chest wo con HISTORY: Abnormal chest x-ray, respiratory failure COMPARISON: 11/12/2024, 08/08/2024 TECHNIQUE: Multi-planar CT images were created with IV contrast. Axial, Coronal, and Sagittal images. Dose reduction techniques were achieved by using automated exposure control and/or adjustment of mA and/or kV according to patient size and/or use of iterative reconstruction technique. FINDINGS: LUNGS: Patchy/ground glass infiltrates identified in the posterior aspect of the right upper lobe. Partial consolidation of the right lower lobe with presence of air bronchograms. Patchy linear opacities left lung base, atelectasis is favored PLEURA: No mass, effusion, or pneumothorax. VASCULATURE: No abnormality. RENAN: No mass or adenopathy. MEDIASTINUM: No mass or adenopathy. CARDIAC: No enlargement or pericardial effusion Coronary arteries: Absent AORTA: No aortic aneurysm CHEST WALL: No mass or axillary adenopathy. BONES: No bone lesion or fracture. LIMITED ABDOMEN: No suspicious findings. Limited images of the upper abdomen. OTHER: Negative. CT/CT chest wo con IMPRESSION: Right upper and right lower lobe multifocal pneumonia Electronically authenticated by: BRITTANY VANESSA Date: 11/13/2024 14:19 Dictated By: Brittany Vanessa M.D. Signed By: 11/13/24 1422 DD/ 1419 TD/TT: Home Health Attendant: [place] [address] CT Scan Report Signed Patient: KRISTEN CHAMPION MR#: [id number] : 1955 Acct:[id number] Age/Sex: 69 / F ADM Date: 11/12/24 Loc: MS 231-[address]: Shaikh Lev Velasquez Ordering Physician: Bo Mcclain D.O. Date of Service: 11/13/24 Procedure(s): CT mine st wo con Accession Number(s): [id number] cc: AIDA BLANC [place] [id number] Patient Name: DIANA CHAMPION MRN: [id number] date: 1955 Sex: F Assigned Patient Location: MS Current Patient Location: MS Accession/Order Numb er: [id number] Exam Date: 11/13/2024 13:54 Report Date: 11/13/2024 14:19 At the request of: BO MCCLAIN Procedure: CT chest wo con EXAMINATION: CT ches t wo con HISTORY: Abnormal ch est x-ray, respiratory failure COMPARISON: 11/12/2024 , 08/08/2024 TECHNIQUE: Multi-yajaira gene CT images were created with IV contrast. Axial, Coronal, and Sagitta l images. Dose reduction techniques were achieved by using automated exposure control and/or adjustment of mA and/or kV according to patient size and/or use of iterative reconstruction technique. FINDINGS: LUNGS: Patchy/ground glass infiltrates identified in the posterior aspect of the right upper lobe . Partial consolidation of the right lower lobe with presence of air bronchograms. Patchy linear opacities left lung base, atelectasis is favored PLEURA: No mass, effusion, or pneumothorax. VASCULATURE: No abnormality. RENAN: No mass or adenopathy. MEDIASTINUM: No mass or adenopathy. CARDIAC: No enlargem ent or pericardial effusion Coronary arteries: Absent AORTA: No aortic aneurysm CHEST WALL: No mass or axillary adenopathy. BONES: No bone lesio n or fracture. LIMITED ABDOMEN: No suspicious findings. Limited images of the upper abdomen. OTHER: Negative. C T/CT chest wo con IMPRESSION: Right upper and righ t lower lobe multifocal pneumonia Electronically authenticated by: BRITTANY VANESSA Date: 11/13/2024 14:19 Dictated By: Ángel Vanessa M.D. Signed By: 11/13/24 1422 DD/ 1419 TD/TT: Home Health Attendant: PROF JOSSELINE Ramirez ([facility]) Reviewed date:01/05/2025 12:57:10 PM Interpretation: Performing Lab: Notes/Report: [facility] , Sodium 140 136-145 mmol/L Potassium 4.3 3.5-5.1 mmol/L Chloride 103 98-107 mmol/L Carbon Dioxide 29.2 21.0-32.0 mmol/L Anion Gap 12.1 Glucose 208 74-106 mg/dL Blood Urea Nitrogen 24.0 7.0-18.0 mg/dL Creatinine 1.23 0.55-1.02 mg/dL Estimated GFR ( Ayana 53 >=60 mL/min/1.73m 2 Estimated GFR (Non- Kathy 43 >=60 mL/min/1.73m 2 BUN Creatinine Ratio 19.5 Calcium 9.5 8.5-10.1 mg/dL Performing Lab: see note - [facility] Venous Blood Gas Reviewed date:01/05/2025 12:57:10 PM Interpretation: Performing Lab: Notes/Report: [facility] , pH VBG 7.434 7.330-7.430 PCO2 VBG 45.8 40.0-52.0 mmHg Performing Lab: see note [facility] CA echo doppler complete Reviewed date:01/06/2025 09:44:14 PM Interpretation: Performing Lab: Notes/Report: Source Facility: [place] [address] Cardiology Report Signed Patient: DIANA CHAMPION MR#: [id number] : 1955 Acct:[id number] Age/Sex: 69 / F ADM Date: 01/02/25 Loc: MS 214-[address]: Kandy Zepeda M.D. Ordering Physician: Kandy Zepeda M.D. Date of Service: 01/06/25 Procedure(s): CA echo doppler complete Accession Number(s): [id number] cc: CRISTIAN BLANC Douglas M.D. Patient Name: DIANA CHAMPION MR#: [id number] : 1955 Exam Date: 01/06/2025 Ordering Doctor: DR Kandy Zepeda . ECHOCARDIOGRAM REPORT PROCEDURE: CA ECHO DOPPLER COMPLETE INDICATIONS: acute chf COMPARISON: None. DESCRIPTION: COMPLETE ECHOCARDIOGRAM Real-time transthoracic echocardiography with 2D, M-mode, spectral and color flow Doppler performed. QUALITY: Technical quality was adequate. LEFT VENTRICLE: Normal chamber size. Mild concentric left ventricular hypertrophy. LV EF: Normal left ventricle systolic function without wall motion abnormalities, left ventricular ejection fraction 55% DIASTOLIC: Indeterminate diastolic function. ATRIAL SEPTUM: It appears intact LEFT ATRIUM: Normal chamber size. RIGHT ATRIUM: Normal chamber size. RIGHT VENTRICLE: Normal chamber size. Normal right ventricular systolic function. TRICUSPID VALVE: Normal mobility and thickness. No stenosis with trivial regurgitation. Severe pulmonary hypertension.RVSP 63mmHg MITRAL VALVE: Normal mobility and thickness. No evidence of mitral valve stenosis. There is no mitral annular calcification. Trivial mitral regurgitation. AORTIC VALVE: Normal trileaflet appearance. No visible sclerosis. Normal leaflet mobility. No evidence of aortic valve stenosis. No aortic regurgitation. AORTIC ROOT: Normal diameter and appearance. PULMONIC VALVE: Grossly normal. No stenosis. Trivial regurgitation. PERICARDIUM: No evidence of pericardial effusion. Pericardial fatty pad is noted IVC: Mild dilatation. measuring 2.2cm with no collapse. PLEURA: CONCLUSION: Mild concentric left ventricle hypertrophy Normal left ventricle systolic function without wall motion abnormalities, ejection fraction 55% Indeterminate left ventricular diastolic function Normal right ventricle size and systolic function Severe pulmonary hypertension, RVSP 63 mmHg No significant valvular abnormalities Dilated IVC with reduced respiratory collapse consistent with elevated CVP, RAP 15 mmHg Adult Echocardiography Procedure Report Left Ventricle LVEDD (3.7 - 5.6 cm): 5.04 cm LVESD (2.2 - 4.0 cm): 3.62 cm LVIVS thickness (0.6 - 1.2 cm): 1.16 cm LVPW thickness (0.5 - 1.0 cm): 1.30 cm e': 0.08 m/s E - e': 7.82 LVOT Max Gradient: 3.64 mm[Hg] LVOT Area (cm2): 0.95 m/s Peak Velocity (LVOT): 0.95 m/s Mean Velocity (LVOT): 0.60 m/s LVOT Diameter 1.94 cm Left Ventricular Ejection Fraction: Left Atrium LA Volume Index (2D A2C): 31.73 ml/m2 Left Atrium Systolic Dimension: 3.63 cm Mitral Valve MV E to A Ratio: 0.84 MV Max Gradient: MV Mean Gradient: Mitral Valve A-Wave Peak Velocity: 0.77 m/s Mitral Valve E-Wave Peak Velocity: 0.65 m/s Cardiovascular Orifice Area: Right Ventricle RV Internal Diastolic Dimension: 3.36 cm Aorta AO Root Diam: 3.05 cm Ascending Ao Diam: 3.21 cm Aortic Valve AoV Area (Peak Rafita): 2.13 cm2, 2.13 cm2 AoV Area (VTI): 2.34 cm2, 2.34 cm2 Deceleration [place]: Pressure Half-Time: Peak Velocity(Antegrade Flow): 1.33 m/s Peak Gradient(Antegrade Flow): 7.08 mm[Hg] Mean Velocity(Antegrade Flow): 0.84 m/s Mean Gradient(Antegrade Flow): 3.31 mm[Hg] Velocity Time Integral: 23.91 cm Tricuspid Valve Peak Velocity (Regurgitant Flow): 1.99 m/s, 2.37 m/s, 3.46 m/s Peak Velocity: Pulmonic Valve Mean Gradient: Mean Velocity: Peak Velocity: 1.31 m/s Peak Gradient: 6.42 mm[Hg], 7.24 mm[Hg] Right Atrium Right Atrium Systolic Pressure: 8 mmHg Dictated by: Gary Casas MD on 01/06/2025 at 17:55 Approved by: Gray Casas MD on 01/06/2025 at 18:07 Dictated By: Gary Casas M.D. Signed By: 01/06/251807 DD/ 06 TD/TT: Home Health Attendant: [place] [address] Cardiology Report Signed Patient: KRISTEN CHAMPION MR#: [id number] : 1955 Acct:[id number] Age/Sex: 69 / F ADM Date: 01/02/25 Loc: MS 214-[address]: Samuel Zepeda M.D. Ordering Physician: Kandy Zepeda M.D. Date of Service: 01/06/25 Procedure(s): CA ech o doppler complete Accession Number(s): [id number] cc: CRISTIAN BLANC Douglas M.D. Patient Name: DIANA CHAMPION MR#: [id number] : 1955 Exam Date: 01/06/2025 Ordering Doctor: DR Kandy Zepeda . ECHOCARDIOGRAM REPORT PROCEDURE: CA ECHO DOPPLER COMPLETE INDICATIONS: acute chf COMPARISON: None. DESCRIPTION: COMPLET E ECHOCARDIOGRAM Real-time transthoracic echocardiography wit h 2D, M-mode, spectral and color flow Doppler performed. QUALITY: Technical quality was adequate. LEFT VENTRICLE: Norm al chamber size. Mild concentric left ventricular hypertrophy. LV EF: Normal left ventricle systolic function without wall motion abnormalities, left ventricular ejection fraction 55% DIASTOLIC: Indetermi kusum diastolic function. ATRIAL SEPTUM: It appears intact LEFT ATRIUM: Normal chamber size. RIGHT ATRIUM: Normal chamber size. RIGHT VENTRICLE: Nor mal chamber size. Normal right ventricular systolic function. TRICUSPID VALVE: Nor mal mobility and thickness. No stenosis with trivial regurgitation. Sever e pulmonary hypertension.RVSP 63mmHg MITRAL VALVE: Normal mobility and thickness. No evidence of mitral valve stenosis. There is no mitral annular calcification. Trivial mitral regurgitation. AORTIC VALVE: Normal trileaflet appearance. No visible sclerosis. Normal leaflet mobility. No evidence of aortic valve stenosis. No aortic regurgitation. AORTIC ROOT: Normal diameter and appearance. PULMONIC VALVE: Cathy sly normal. No stenosis. Trivial regurgitation. PERICARDIUM: No evid ence of pericardial effusion. Pericardial fatty pad is noted IVC: Mild dilatation . measuring 2.2cm with no collapse. PLEURA: CONCLUSION: Mild concentric left ventricle hypertrophy Normal left ventricl e systolic function without wall motion abnormalities, ejection fraction 55% Indeterminate left ventricular diastolic function Normal right ventric le size and systolic function Severe pulmonary hypertension, RVSP 63 mmHg No significant valvu lar abnormalities Dilated IVC with red uced respiratory collapse consistent with elevated CVP, RAP 15 mmHg Adult Echocardiograp hy Procedure Report Left Ventricle LVEDD (3.7 - 5.6 cm) : 5.04 cm LVESD (2.2 - 4.0 cm) : 3.62 cm LVIVS thickness (0.6 - 1.2 cm): 1.16 cm LVPW thickness (0.5 - 1.0 cm): 1.30 cm e': 0.08 m/s E - e': 7.82 LVOT Max Gradient: 3 .64 mm[Hg] LVOT Area (cm2): 0.9 5 m/s Peak Velocity (LVOT) : 0.95 m/s Mean Velocity (LVOT) : 0.60 m/s LVOT Diameter 1.94 cm Left Ventricular Ejection Fraction: Left Atrium LA Volume Index (2D A2C): 31.73 ml/m2 Left Atrium Systolic Dimension: 3.63 cm Mitral Valve MV E to A Ratio: 0.84 MV Max Gradient: MV Mean Gradient: Mitral Valve A-Wave Peak Velocity: 0.77 m/s Mitral Valve E-Wave Peak Velocity: 0.65 m/s Cardiovascular Orifi ce Area: Right Ventricle RV Internal Diastoli c Dimension: 3.36 cm Aorta AO Root Diam: 3.05 cm Ascending Ao Diam: 3 .21 cm Aortic Valve AoV Area (Peak Rafita): 2.13 cm2, 2.13 cm2 AoV Area (VTI): 2.34 cm2, 2.34 cm2 Deceleration [place]: Pressure Half-Time: Peak Velocity(Antegr mary Flow): 1.33 m/s Peak Gradient(Antegr mary Flow): 7.08 mm[Hg] Mean Velocity(Antegr mary Flow): 0.84 m/s Mean Gradient(Antegr mary Flow): 3.31 mm[Hg] Velocity Time Integr al: 23.91 cm Tricuspid Valve Peak Velocity (Regurgitant Flow): 1.99 m/s, 2.37 m/s, 3.46 m/s Peak Velocity: Pulmonic Valve Mean Gradient: Mean Velocity: Peak Velocity: 1.31 m/s Peak Gradient: 6.42 mm[Hg], 7.24 mm[Hg] Right Atrium Right Atrium Systoli c Pressure: 8 mmHg Dictated by: Gary Casas MD on 01/06/2025 at 17:55 Approved by: Gary Casas MD on 01/06/2025 at 18:07 Dictated By: Gary Casas M.D. Signed By: 01/06/251807 DD/ 06 TD/TT: Home Health Attendant: BLOOD GASES BTY Reviewed date:01/12/2025 09:41:19 AM Interpretation: Performing Lab: Notes/Report: [facility] , pH ABG 7.391 7.350-7.450 ABG PCO2 51.0 35.0-45.0 mmHg RESULTS CALLED TO CARLOS TRAORE RN ON [facility]G BY Luzma Villa at 0854 PO2 ABG 135.0 80.0-100.0 mmHg HCO3 ABG 30.9 22.0-26.0 mmol/L Base Excess ABG 6.0 -2.0-2.0 mmol/L Oxygen Saturation ABG 99.3 Hardy Test POSITIVE POSITIVE O2 Mode VAPOTHERM Liters per Minute 40 Fractionated Inspired Oxygen 100 Puncture Site L RAD Performing Lab: see note [facility] LB UA RANDOM W or MICROSCOPIC Reviewed date:01/13/2025 02:13:13 PM Interpretation: Performing Lab: Notes/Report: [facility] , Color Urine LT. YELLOW YELLOW Clarity Urine CLEAR CLEAR Specific [place] Urine 1.010 1.005-1.025 pH Urine 6.0 5.0-9.0 Protein Urine NEGATIVE NEG/TRACE mg/dL Glucose Urine UA 500 NEGATIVE mg/dL Bilirubin Urine NEGATIVE NEGATIVE Ketones Urine NEGATIVE NEGATIVE mg/dL Blood Urine NEGATIVE NEGATIVE Nitrite Urine NEGATIVE NEGATIVE Urobilinogen Urine 0.2 0.2-1.0 EU/dL Leukocyte Esterase Urine NEGATIVE NEGATIVE WBC Urine 0-2 NONE SEEN #/HPF RBC Urine NONE SEEN 0-2 #/HPF Bacteria Urine NONE SEEN NONE SEEN #/HPF Mucus Urine NONE SEEN NONE SEEN Squamous Epithelial Cell Urine RARE NONE/RARE #/LPF Crystals Seen? None Seen None Seen #/HPF Cast Seen? NONE SEEN NONE SEEN #/LPF Urine Culture Indicated NO Performing Lab: see note ML - [facility] LB CBC AUTO DIFF Reviewed date:01/13/2025 02:13:13 PM Interpretation: Performing Lab: Notes/Report: [facility] , White Blood Count 8.1 4.0-11.0 10 3/uL Red Blood Count 3.55 4.20-5.40 10 6/uL Hemoglobin 10.8 12.0-16.0 g/dL Hematocrit 33.1 36.0-48.0 % Mean Corpuscular Volume 93.2 81.0-99.0 fL Mean Corpuscular Hemoglobin 30.4 26.7-34.0 pg Mean Corpuscular HGB Conc 32.6 29.9-35.2 g/dL Red Cell Distribution Width 13.9 11.0-15.0 % Platelet Count 245 150-450 10 3/uL Mean Platelet Volume 9.7 9.5-13.5 fL Neutrophils Percent Auto 83.3 43.0-75.0 % Lymphocytes Percent Auto 3.8 20.5-60.0 % Monocytes Percent Auto 7.8 1.7-12.0 % Eosinophils Percent Auto 0.1 0.9-7.0 % Basophils Percent Auto 0.2 0.2-2.0 % Immature Granulocytes Pct Auto 4.8 0.0-0.5 % Neutrophils Absolute Auto 6.7 1.4-6.5 10 3/uL Lymphocytes Absolute Auto 0.3 1.2-3.8 10 3/uL Monocytes Absolute Auto 0.6 0.3-0.8 10 3/uL Eosinophils Absolute Auto 0.0 0.0-0.7 10 3/uL Basophils Absolute Auto 0.0 0.0-0.1 10 3/uL Immature Granulocytes Abs Auto 0.39 0.00-0.03 10 3/uL Performing Lab: see note ML - [facility] LB BNP Reviewed date:01/14/2025 09:26:10 AM Interpretation: Performing Lab: Notes/Report: [facility] , NT Pro B Type Natriuretic Pept 452.0 <=900.0 pg/mL Performing Lab: see note - [facility] LB PROF CHEM 8 (BAS METB) Reviewed date:01/14/2025 09:26:10 AM Interpretation: Performing Lab: Notes/Report: [facility] , Sodium 135 136-145 mmol/L Potassium 4.4 3.5-5.1 mmol/L Chloride 98 98-107 mmol/L Carbon Dioxide 33.0 21.0-32.0 mmol/L Anion Gap 8.4 Glucose 261 74-106 mg/dL Blood Urea Nitrogen 40.0 7.0-18.0 mg/dL Creatinine 1.14 0.55-1.02 mg/dL Estimated GFR ( Ayana 57 >=60 mL/min/1.73m 2 Estimated GFR (Non- Kathy 47 >=60 mL/min/1.73m 2 BUN Creatinine Ratio 35.1 Calcium 8.1 8.5-10.1 mg/dL Performing Lab: see note ML - [facility] LB CBC AUTO DIFF Reviewed date:01/14/2025 09:26:10 AM Interpretation: Performing Lab: Notes/Report: [facility] , White Blood Count 9.7 4.0-11.0 10 3/uL Red Blood Count 4.08 4.20-5.40 10 6/uL Hemoglobin 12.2 12.0-16.0 g/dL Hematocrit 37.0 36.0-48.0 % Mean Corpuscular Volume 90.7 81.0-99.0 fL Mean Corpuscular Hemoglobin 29.9 26.7-34.0 pg Mean Corpuscular HGB Conc 33.0 29.9-35.2 g/dL Red Cell Distribution Width 13.9 11.0-15.0 % Platelet Count 260 150-450 10 3/uL Mean Platelet Volume 9.8 9.5-13.5 fL Neutrophils Percent Auto 80.7 43.0-75.0 % Lymphocytes Percent Auto 5.7 20.5-60.0 % Monocytes Percent Auto 7.1 1.7-12.0 % Eosinophils Percent Auto 0.3 0.9-7.0 % Basophils Percent Auto 0.3 0.2-2.0 % Immature Granulocytes Pct Auto 5.9 0.0-0.5 % Neutrophils Absolute Auto 7.9 1.4-6.5 10 3/uL Lymphocytes Absolute Auto 0.6 1.2-3.8 10 3/uL Monocytes Absolute Auto 0.7 0.3-0.8 10 3/uL Eosinophils Absolute Auto 0.0 0.0-0.7 10 3/uL Basophils Absolute Auto 0.0 0.0-0.1 10 3/uL Immature Granulocytes Abs Auto 0.57 0.00-0.03 10 3/uL Performing Lab: see note ML - [facility] LB PROF CHEM 8 (BAS METB) Reviewed date:01/13/2025 02:13:13 PM Interpretation: Performing Lab: Notes/Report: [facility] , Sodium 139 136-145 mmol/L Potassium 4.8 3.5-5.1 mmol/L Chloride 99 98-107 mmol/L Carbon Dioxide 33.9 21.0-32.0 mmol/L Anion Gap 10.9 Glucose 258 74-106 mg/dL Blood Urea Nitrogen 36.0 7.0-18.0 mg/dL Creatinine 1.21 0.55-1.02 mg/dL Estimated GFR ( Ayana 54 >=60 mL/min/1.73m 2 Estimated GFR (Non- Kathy 44 >=60 mL/min/1.73m 2 BUN Creatinine Ratio 29.8 Calcium 8.1 8.5-10.1 mg/dL Performing Lab: see note ML - [facility] LB BNP Reviewed date:01/13/2025 02:13:13 PM Interpretation: Performing Lab: Notes/Report: [facility] , NT Pro B Type Natriuretic Pept 519.0 <=900.0 pg/mL Performing Lab: see note ML - [facility] VANCOMYCIN TROUGH Reviewed date:01/13/2025 02:13:13 PM Interpretation: Performing Lab: Notes/Report: [facility] , Vancomycin Trough 15.0 5.0-20.0 ug/mL Performing Lab: see note ML - [facility] LB Manual Differential Reviewed date:01/12/2025 09:41:19 AM Interpretation: Performing Lab: Notes/Report: [facility] , Segmented Neutrophils % Manual 90.0 43.0-75.0 Lymphocytes Percent Manual 3.0 20.5-60.0 % Monocytes Percent Manual 7.0 1.7-12.0 % Eosinophils Percent Manual 0.0 0.9-7.0 % Basophils Percent Manual 0.0 0.2-2.0 % Segmented Neut Absolute Manual 9.63 1.4-6.5 10 3/uL Lymphocytes Absolute Manual 0.32 1.20-3.80 10 3/uL Monocytes Absolute Manual 0.74 0.30-0.80 10 3/uL Eosinophils Absolute Manual 0.00 0.00-0.70 10 3/uL Basophils Abs Manual 0.00 0.00-0.10 1 0 3/uL Performing Lab: see note ML - [facility] LB PROF CHEM 8 (BAS METB) Reviewed date:01/12/2025 09:41:19 AM Interpretation: Performing Lab: Notes/Report: [facility] , Sodium 136 136-145 mmol/L Potassium 4.6 3.5-5.1 mmol/L Chloride 99 98-107 mmol/L Carbon Dioxide 31.1 21.0-32.0 mmol/L Anion Gap 10.5 Glucose 310 74-106 mg/dL Blood Urea Nitrogen 35.0 7.0-18.0 mg/dL Creatinine 1.14 0.55-1.02 mg/dL Estimated GFR ( Ayana 57 >=60 mL/min/1.73m 2 Estimated GFR (Non- Kathy 47 >=60 mL/min/1.73m 2 BUN Creatinine Ratio 30.7 Calcium 8.3 8.5-10.1 mg/dL Performing Lab: see note ML - [facility] LB CBC AUTO DIFF Reviewed date:01/12/2025 09:41:19 AM Interpretation: Performing Lab: Notes/Report: [facility] , White Blood Count 10.7 4.0-11.0 10 3/uL Red Blood Count 4.06 4.20-5.40 10 6/uL Hemoglobin 12.2 12.0-16.0 g/dL Hematocrit 37.9 36.0-48.0 % Mean Corpuscular Volume 93.3 81.0-99.0 fL Mean Corpuscular Hemoglobin 30.0 26.7-34.0 pg Mean Corpuscular HGB Conc 32.2 29.9-35.2 g/dL Red Cell Distribution Width 14.0 11.0-15.0 % Platelet Count 283 150-450 10 3/uL Mean Platelet Volume 9.4 9.5-13.5 fL Performing Lab: see note ML - [facility] LB BNP Reviewed date:01/12/2025 09:41:19 AM Interpretation: Performing Lab: Notes/Report: [facility] , NT Pro B Type Natriuretic Pept 242.0 <=900.0 pg/mL Performing Lab: see note ML - [facility] LB Manual Differential Reviewed date:01/12/2025 09:41:19 AM Interpretation: Performing Lab: Notes/Report: [facility] , Segmented Neutrophils % Manual 91.0 43.0-75.0 Band Neutrophils % 1.0 0-5 % Lymphocytes Percent Manual 4.0 20.5-60.0 % Monocytes Percent Manual 4.0 1.7-12.0 % Eosinophils Percent Manual 0.0 0.9-7.0 % Basophils Percent Manual 0.0 0.2-2.0 % Segmented Neut Absolute Manual 14.65 1.4-6.5 10 3/uL Band Neutrophils Absolute 0.2 0.0-0.3 10 3/uL Lymphocytes Absolute Manual 0.64 1.20-3.80 10 3/uL Monocytes Absolute Manual 0.64 0.30-0.80 10 3/uL Eosinophils Absolute Manual 0.00 0.00-0.70 10 3/uL Basophils Abs Manual 0.00 0.00-0.10 1 0 3/uL Performing Lab: see note ML - [facility] LB PROF CHEM 8 (BAS METB) Reviewed date:01/12/2025 09:41:19 AM Interpretation: Performing Lab: Notes/Report: [facility] , Sodium 137 136-145 mmol/L Potassium 4.4 3.5-5.1 mmol/L Chloride 99 98-107 mmol/L Carbon Dioxide 28.1 21.0-32.0 mmol/L Anion Gap 14.3 Glucose 262 74-106 mg/dL Blood Urea Nitrogen 34.0 7.0-18.0 mg/dL Creatinine 1.34 0.55-1.02 mg/dL Estimated GFR ( Ayana 48 >=60 mL/min/1.73m 2 Estimated GFR (Non- Kathy 39 >=60 mL/min/1.73m 2 BUN Creatinine Ratio 25.4 Calcium 8.6 8.5-10.1 mg/dL Performing Lab: see note - [facility] CBC AUTO DIFF Reviewed date:01/12/2025 09:41:19 AM Interpretation: Performing Lab: Notes/Report: [facility] , White Blood Count 16.1 4.0-11.0 10 3/uL Red Blood Count 4.58 4.20-5.40 10 6/uL Hemoglobin 13.8 12.0-16.0 g/dL Hematocrit 43.2 36.0-48.0 % Mean Corpuscular Volume 94.3 81.0-99.0 fL Mean Corpuscular Hemoglobin 30.1 26.7-34.0 pg Mean Corpuscular HGB Conc 31.9 29.9-35.2 g/dL Red Cell Distribution Width 13.9 11.0-15.0 % Platelet Count 409 150-450 10 3/uL Mean Platelet Volume 9.2 9.5-13.5 fL Performing Lab: see note - [facility] LB BNP Reviewed date:01/12/2025 09:41:19 AM Interpretation: Performing Lab: Notes/Report: [facility] , NT Pro B Type Natriuretic Pept 266.0 <=900.0 pg/mL Performing Lab: see note - [facility] LB Lower Respiratory Culture Reviewed date:01/14/2025 04:11:49 PM Interpretation: Performing Lab: Notes/Report: [facility] , Lower Respiratory Culture See Below For Report Lower Respiratory Culture WILL FOLLOW O:GNR Isolated O:PSMS Isolated Organism: 8.2 Antibiotic Interpretation CUCO Status Cefepime Cefepime S F Ceftazidime Ceftazidime S F Ciprofloxacin Ciprofloxacin S F Levofloxacin Levofloxacin S F Meropenem Meropenem S F Tobramycin Tobramycin S F Piperacillin/Tazobact am Piperacillin/Tazobact am S F Ceftazidime/Avibactam Ceftazidime/Avibactam S F Ceftolozane/Tazobacta m Ceftolozane/Tazobacta m S F Lower Respiratory Culture Organism: Gram negative jarek : Lower Respiratory Culture WILL FOLLOW O:GNR Isolated O:PSMS Isolated Organism: 8.2 Antibiotic Interpretation CUCO Status Cefepime Cefepime S F Ceftazidime Ceftazidime S F Ciprofloxacin Ciprofloxacin S F Levofloxacin Levofloxacin S F Meropenem Meropenem S F Tobramycin Tobramycin S F Piperacillin/Tazobact am Piperacillin/Tazobact am S F Ceftazidime/Avibactam Ceftazidime/Avibactam S F Ceftolozane/Tazobacta m Ceftolozane/Tazobacta m S F Lower Respiratory Culture *ABNORMAL* Lower Respiratory Culture WILL FOLLOW O:GNR Isolated O:PSMS Isolated Organism: 8.2 Antibiotic Interpretation CUCO Status Cefepime Cefepime S F Ceftazidime Ceftazidime S F Ciprofloxacin Ciprofloxacin S F Levofloxacin Levofloxacin S F Meropenem Meropenem S F Tobramycin Tobramycin S F Piperacillin/Tazobact am Piperacillin/Tazobact am S F Ceftazidime/Avibactam Ceftazidime/Avibactam S F Ceftolozane/Tazobacta m Ceftolozane/Tazobacta m S F Lower Respiratory Culture Light growth Lower Respiratory Culture WILL FOLLOW O:GNR Isolated O:PSMS Isolated Organism: 8.2 Antibiotic Interpretation CUCO Status Cefepime Cefepime S F Ceftazidime Ceftazidime S F Ciprofloxacin Ciprofloxacin S F Levofloxacin Levofloxacin S F Meropenem Meropenem S F Tobramycin Tobramycin S F Piperacillin/Tazobact am Piperacillin/Tazobact am S F Ceftazidime/Avibactam Ceftazidime/Avibactam S F Ceftolozane/Tazobacta m Ceftolozane/Tazobacta m S F Lower Respiratory Culture Gram negative jarek Lower Respiratory Culture WILL FOLLOW O:GNR Isolated O:PSMS Isolated Organism: 8.2 Antibiotic Interpretation CUCO Status Cefepime Cefepime S F Ceftazidime Ceftazidime S F Ciprofloxacin Ciprofloxacin S F Levofloxacin Levofloxacin S F Meropenem Meropenem S F Tobramycin Tobramycin S F Piperacillin/Tazobact am Piperacillin/Tazobact am S F Ceftazidime/Avibactam Ceftazidime/Avibactam S F Ceftolozane/Tazobacta m Ceftolozane/Tazobacta m S F Lower Respiratory Culture Organism: Pseudomonas aeruginosa., : Lower Respiratory Culture WILL FOLLOW O:GNR Isolated O:PSMS Isolated Organism: 8.2 Antibiotic Interpretation CUCO Status Cefepime Cefepime S F Ceftazidime Ceftazidime S F Ciprofloxacin Ciprofloxacin S F Levofloxacin Levofloxacin S F Meropenem Meropenem S F Tobramycin Tobramycin S F Piperacillin/Tazobact am Piperacillin/Tazobact am S F Ceftazidime/Avibactam Ceftazidime/Avibactam S F Ceftolozane/Tazobacta m Ceftolozane/Tazobacta m S F Lower Respiratory Culture *ABNORMAL* Lower Respiratory Culture WILL FOLLOW O:GNR Isolated O:PSMS Isolated Organism: 8.2 Antibiotic Interpretation CUCO Status Cefepime Cefepime S F Ceftazidime Ceftazidime S F Ciprofloxacin Ciprofloxacin S F Levofloxacin Levofloxacin S F Meropenem Meropenem S F Tobramycin Tobramycin S F Piperacillin/Tazobact am Piperacillin/Tazobact am S F Ceftazidime/Avibactam Ceftazidime/Avibactam S F Ceftolozane/Tazobacta m Ceftolozane/Tazobacta m S F Lower Respiratory Culture Ceftazidime-avibactam and ceftolozane-tazobactam may Lower Respiratory Culture WILL FOLLOW O:GNR Isolated O:PSMS Isolated Organism: 8.2 Antibiotic Interpretation CUCO Status Cefepime Cefepime S F Ceftazidime Ceftazidime S F Ciprofloxacin Ciprofloxacin S F Levofloxacin Levofloxacin S F Meropenem Meropenem S F Tobramycin Tobramycin S F Piperacillin/Tazobact am Piperacillin/Tazobact am S F Ceftazidime/Avibactam Ceftazidime/Avibactam S F Ceftolozane/Tazobacta m Ceftolozane/Tazobacta m S F Lower Respiratory Culture be considered for therapy ONLY when multi-drug Lower Respiratory Culture WILL FOLLOW O:GNR Isolated O:PSMS Isolated Organism: 8.2 Antibiotic Interpretation CUCO Status Cefepime Cefepime S F Ceftazidime Ceftazidime S F Ciprofloxacin Ciprofloxacin S F Levofloxacin Levofloxacin S F Meropenem Meropenem S F Tobramycin Tobramycin S F Piperacillin/Tazobact am Piperacillin/Tazobact am S F Ceftazidime/Avibactam Ceftazidime/Avibactam S F Ceftolozane/Tazobacta m Ceftolozane/Tazobacta m S F Lower Respiratory Culture resistance (MDR) is demonstrated to meropenem and Lower Respiratory Culture WILL FOLLOW O:GNR Isolated O:PSMS Isolated Organism: 8.2 Antibiotic Interpretation CUCO Status Cefepime Cefepime S F Ceftazidime Ceftazidime S F Ciprofloxacin Ciprofloxacin S F Levofloxacin Levofloxacin S F Meropenem Meropenem S F Tobramycin Tobramycin S F Piperacillin/Tazobact am Piperacillin/Tazobact am S F Ceftazidime/Avibactam Ceftazidime/Avibactam S F Ceftolozane/Tazobacta m Ceftolozane/Tazobacta m S F Lower Respiratory Culture other tested agents. Lower Respiratory Culture WILL FOLLOW O:GNR Isolated O:PSMS Isolated Organism: 8.2 Antibiotic Interpretation CUCO Status Cefepime Cefepime S F Ceftazidime Ceftazidime S F Ciprofloxacin Ciprofloxacin S F Levofloxacin Levofloxacin S F Meropenem Meropenem S F Tobramycin Tobramycin S F Piperacillin/Tazobact am Piperacillin/Tazobact am S F Ceftazidime/Avibactam Ceftazidime/Avibactam S F Ceftolozane/Tazobacta m Ceftolozane/Tazobacta m S F Lower Respiratory Culture Light growth Lower Respiratory Culture WILL FOLLOW O:GNR Isolated O:PSMS Isolated Organism: 8.2 Antibiotic Interpretation CUCO Status Cefepime Cefepime S F Ceftazidime Ceftazidime S F Ciprofloxacin Ciprofloxacin S F Levofloxacin Levofloxacin S F Meropenem Meropenem S F Tobramycin Tobramycin S F Piperacillin/Tazobact am Piperacillin/Tazobact am S F Ceftazidime/Avibactam Ceftazidime/Avibactam S F Ceftolozane/Tazobacta m Ceftolozane/Tazobacta m S F Lower Respiratory Culture Pseudomonas aeruginosa., Lower Respiratory Culture WILL FOLLOW O:GNR Isolated O:PSMS Isolated Organism: 8.2 Antibiotic Interpretation CUCO Status Cefepime Cefepime S F Ceftazidime Ceftazidime S F Ciprofloxacin Ciprofloxacin S F Levofloxacin Levofloxacin S F Meropenem Meropenem S F Tobramycin Tobramycin S F Piperacillin/Tazobact am Piperacillin/Tazobact am S F Ceftazidime/Avibactam Ceftazidime/Avibactam S F Ceftolozane/Tazobacta m Ceftolozane/Tazobacta m S F Lower Respiratory Culture See Below For Report Lower Respiratory Culture WILL FOLLOW O:GNR Isolated O:PSMS Isolated Organism: 8.2 Antibiotic Interpretation CUCO Status Cefepime Cefepime S F Ceftazidime Ceftazidime S F Ciprofloxacin Ciprofloxacin S F Levofloxacin Levofloxacin S F Meropenem Meropenem S F Tobramycin Tobramycin S F Piperacillin/Tazobact am Piperacillin/Tazobact am S F Ceftazidime/Avibactam Ceftazidime/Avibactam S F Ceftolozane/Tazobacta m Ceftolozane/Tazobacta m S F Lower Respiratory Culture See Below For Report Lower Respiratory Culture WILL FOLLOW O:GNR Isolated O:PSMS Isolated Organism: 8.2 Antibiotic Interpretation CUCO Status Cefepime Cefepime S F Ceftazidime Ceftazidime S F Ciprofloxacin Ciprofloxacin S F Levofloxacin Levofloxacin S F Meropenem Meropenem S F Tobramycin Tobramycin S F Piperacillin/Tazobact am Piperacillin/Tazobact am S F Ceftazidime/Avibactam Ceftazidime/Avibactam S F Ceftolozane/Tazobacta m Ceftolozane/Tazobacta m S F Lower Respiratory Culture Performed at: - [facility] Lower Respiratory Culture WILL FOLLOW O:GNR Isolated O:PSMS Isolated Organism: 8.2 Antibiotic Interpretation CUCO Status Cefepime Cefepime S F Ceftazidime Ceftazidime S F Ciprofloxacin Ciprofloxacin S F Levofloxacin Levofloxacin S F Meropenem Meropenem S F Tobramycin Tobramycin S F Piperacillin/Tazobact am Piperacillin/Tazobact am S F Ceftazidime/Avibactam Ceftazidime/Avibactam S F Ceftolozane/Tazobacta m Ceftolozane/Tazobacta m S F Lower Respiratory Culture [address] [place] [address] [id number] Lower Respiratory Culture WILL FOLLOW O:GNR Isolated O:PSMS Isolated Organism: 8.2 Antibiotic Interpretation CUCO Status Cefepime Cefepime S F Ceftazidime Ceftazidime S F Ciprofloxacin Ciprofloxacin S F Levofloxacin Levofloxacin S F Meropenem Meropenem S F Tobramycin Tobramycin S F Piperacillin/Tazobact am Piperacillin/Tazobact am S F Ceftazidime/Avibactam Ceftazidime/Avibactam S F Ceftolozane/Tazobacta m Ceftolozane/Tazobacta m S F Lower Respiratory Culture Test Manager: Raphael Marrero PhD, Phone: [phone] Lower Respiratory Culture WILL FOLLOW O:GNR Isolated O:PSMS Isolated Organism: 8.2 Antibiotic Interpretation CUCO Status Cefepime Cefepime S F Ceftazidime Ceftazidime S F Ciprofloxacin Ciprofloxacin S F Levofloxacin Levofloxacin S F Meropenem Meropenem S F Tobramycin Tobramycin S F Piperacillin/Tazobact am Piperacillin/Tazobact am S F Ceftazidime/Avibactam Ceftazidime/Avibactam S F Ceftolozane/Tazobacta m Ceftolozane/Tazobacta m S F Lower Respiratory Culture See Below For Report Lower Respiratory Culture WILL FOLLOW O:GNR Isolated O:PSMS Isolated Organism: 8.2 Antibiotic Interpretation CUCO Status Cefepime Cefepime S F Ceftazidime Ceftazidime S F Ciprofloxacin Ciprofloxacin S F Levofloxacin Levofloxacin S F Meropenem Meropenem S F Tobramycin Tobramycin S F Piperacillin/Tazobact am Piperacillin/Tazobact am S F Ceftazidime/Avibactam Ceftazidime/Avibactam S F Ceftolozane/Tazobacta m Ceftolozane/Tazobacta m S F Lower Respiratory Culture See Below For Report Lower Respiratory Culture WILL FOLLOW O:GNR Isolated O:PSMS Isolated Organism: 8.2 Antibiotic Interpretation CUCO Status Cefepime Cefepime S F Ceftazidime Ceftazidime S F Ciprofloxacin Ciprofloxacin S F Levofloxacin Levofloxacin S F Meropenem Meropenem S F Tobramycin Tobramycin S F Piperacillin/Tazobact am Piperacillin/Tazobact am S F Ceftazidime/Avibactam Ceftazidime/Avibactam S F Ceftolozane/Tazobacta m Ceftolozane/Tazobacta m S F Lower Respiratory Culture See Below For Report Lower Respiratory Culture WILL FOLLOW O:GNR Isolated O:PSMS Isolated Organism: 8.2 Antibiotic Interpretation CUCO Status Cefepime Cefepime S F Ceftazidime Ceftazidime S F Ciprofloxacin Ciprofloxacin S F Levofloxacin Levofloxacin S F Meropenem Meropenem S F Tobramycin Tobramycin S F Piperacillin/Tazobact am Piperacillin/Tazobact am S F Ceftazidime/Avibactam Ceftazidime/Avibactam S F Ceftolozane/Tazobacta m Ceftolozane/Tazobacta m S F Lower Respiratory Culture See Below For Report Lower Respiratory Culture WILL FOLLOW O:GNR Isolated O:PSMS Isolated Organism: 8.2 Antibiotic Interpretation CUCO Status Cefepime Cefepime S F Ceftazidime Ceftazidime S F Ciprofloxacin Ciprofloxacin S F Levofloxacin Levofloxacin S F Meropenem Meropenem S F Tobramycin Tobramycin S F Piperacillin/Tazobact am Piperacillin/Tazobact am S F Ceftazidime/Avibactam Ceftazidime/Avibactam S F Ceftolozane/Tazobacta m Ceftolozane/Tazobacta m S F Lower Respiratory Culture See Below For Report Lower Respiratory Culture WILL FOLLOW O:GNR Isolated O:PSMS Isolated Organism: 8.2 Antibiotic Interpretation CUCO Status Cefepime Cefepime S F Ceftazidime Ceftazidime S F Ciprofloxacin Ciprofloxacin S F Levofloxacin Levofloxacin S F Meropenem Meropenem S F Tobramycin Tobramycin S F Piperacillin/Tazobact am Piperacillin/Tazobact am S F Ceftazidime/Avibactam Ceftazidime/Avibactam S F Ceftolozane/Tazobacta m Ceftolozane/Tazobacta m S F Lower Respiratory Culture See Below For Report Lower Respiratory Culture WILL FOLLOW O:GNR Isolated O:PSMS Isolated Organism: 8.2 Antibiotic Interpretation CUCO Status Cefepime Cefepime S F Ceftazidime Ceftazidime S F Ciprofloxacin Ciprofloxacin S F Levofloxacin Levofloxacin S F Meropenem Meropenem S F Tobramycin Tobramycin S F Piperacillin/Tazobact am Piperacillin/Tazobact am S F Ceftazidime/Avibactam Ceftazidime/Avibactam S F Ceftolozane/Tazobacta m Ceftolozane/Tazobacta m S F Lower Respiratory Culture See Below For Report Lower Respiratory Culture WILL FOLLOW O:GNR Isolated O:PSMS Isolated Organism: 8.2 Antibiotic Interpretation CUCO Status Cefepime Cefepime S F Ceftazidime Ceftazidime S F Ciprofloxacin Ciprofloxacin S F Levofloxacin Levofloxacin S F Meropenem Meropenem S F Tobramycin Tobramycin S F Piperacillin/Tazobact am Piperacillin/Tazobact am S F Ceftazidime/Avibactam Ceftazidime/Avibactam S F Ceftolozane/Tazobacta m Ceftolozane/Tazobacta m S F Lower Respiratory Culture See Below For Report Lower Respiratory Culture WILL FOLLOW O:GNR Isolated O:PSMS Isolated Organism: 8.2 Antibiotic Interpretation CUCO Status Cefepime Cefepime S F Ceftazidime Ceftazidime S F Ciprofloxacin Ciprofloxacin S F Levofloxacin Levofloxacin S F Meropenem Meropenem S F Tobramycin Tobramycin S F Piperacillin/Tazobact am Piperacillin/Tazobact am S F Ceftazidime/Avibactam Ceftazidime/Avibactam S F Ceftolozane/Tazobacta m Ceftolozane/Tazobacta m S F Lower Respiratory Culture See Below For Report Lower Respiratory Culture WILL FOLLOW O:GNR Isolated O:PSMS Isolated Organism: 8.2 Antibiotic Interpretation CUCO Status Cefepime Cefepime S F Ceftazidime Ceftazidime S F Ciprofloxacin Ciprofloxacin S F Levofloxacin Levofloxacin S F Meropenem Meropenem S F Tobramycin Tobramycin S F Piperacillin/Tazobact am Piperacillin/Tazobact am S F Ceftazidime/Avibactam Ceftazidime/Avibactam S F Ceftolozane/Tazobacta m Ceftolozane/Tazobacta m S F Lower Respiratory Culture See Below For Report Lower Respiratory Culture WILL FOLLOW O:GNR Isolated O:PSMS Isolated Organism: 8.2 Antibiotic Interpretation CUCO Status Cefepime Cefepime S F Ceftazidime Ceftazidime S F Ciprofloxacin Ciprofloxacin S F Levofloxacin Levofloxacin S F Meropenem Meropenem S F Tobramycin Tobramycin S F Piperacillin/Tazobact am Piperacillin/Tazobact am S F Ceftazidime/Avibactam Ceftazidime/Avibactam S F Ceftolozane/Tazobacta m Ceftolozane/Tazobacta m S F Performing Lab: see note LC - [facility] LB SEE REPORT - [employer] Id information not found for OBX-specific beauty consultant legend Manual Differential Reviewed date:01/09/2025 09:12:32 PM Interpretation: Performing Lab: Notes/Report: [facility] , Segmented Neutrophils % Manual 88.0 43.0-75.0 Band Neutrophils % 1.0 0-5 % Lymphocytes Percent Manual 9.0 20.5-60.0 % Monocytes Percent Manual 1.0 1.7-12.0 % Eosinophils Percent Manual 0.0 0.9-7.0 % Basophils Percent Manual 0.0 0.2-2.0 % Metamyelocytes % 1.0 Segmented Neut Absolute Manual 11.35 1.4-6.5 10 3/uL Band Neutrophils Absolute 0.1 0.0-0.3 10 3/uL Lymphocytes Absolute Manual 1.16 1.20-3.80 10 3/uL Monocytes Absolute Manual 0.12 0.30-0.80 10 3/uL Eosinophils Absolute Manual 0.00 0.00-0.70 10 3/uL Basophils Abs Manual 0.00 0.00-0.10 1 0 3/uL Metamyelocytes Absolute Manual 0.12 Performing Lab: see note ML - [facility] LB PROF CHEM 8 (BAS METB) Reviewed date:01/09/2025 09:12:32 PM Interpretation: Performing Lab: Notes/Report: [facility] , Sodium 138 136-145 mmol/L Potassium 5.0 3.5-5.1 mmol/L Chloride 101 98-107 mmol/L Carbon Dioxide 33.1 21.0-32.0 mmol/L Anion Gap 8.9 Glucose 223 74-106 mg/dL Blood Urea Nitrogen 35.0 7.0-18.0 mg/dL Creatinine 1.32 0.55-1.02 mg/dL Estimated GFR ( Ayana 48 >=60 mL/min/1.73m 2 Estimated GFR (Non- Kathy 40 >=60 mL/min/1.73m 2 BUN Creatinine Ratio 26.5 Calcium 8.0 8.5-10.1 mg/dL Performing Lab: see note ML - [facility] LB CBC AUTO DIFF Reviewed date:01/09/2025 09:12:32 PM Interpretation: Performing Lab: Notes/Report: [facility] , White Blood Count 12.9 4.0-11.0 10 3/uL Red Blood Count 4.30 4.20-5.40 10 6/uL Hemoglobin 13.2 12.0-16.0 g/dL Hematocrit 40.3 36.0-48.0 % Mean Corpuscular Volume 93.7 81.0-99.0 fL Mean Corpuscular Hemoglobin 30.7 26.7-34.0 pg Mean Corpuscular HGB Conc 32.8 29.9-35.2 g/dL Red Cell Distribution Width 14.3 11.0-15.0 % Platelet Count 350 150-450 10 3/uL Mean Platelet Volume 8.8 9.5-13.5 fL Performing Lab: see note ML - [facility] LB BNP Reviewed date:01/09/2025 09:12:32 PM Interpretation: Performing Lab: Notes/Report: [facility] , NT Pro B Type Natriuretic Pept 123.0 <=900.0 pg/mL Performing Lab: see note ML - [facility] LB SARS-CoV-2 Ag* Reviewed date:01/08/2025 09:36:16 PM Interpretation: Performing Lab: Notes/Report: [facility] , SARS-CoV-2 Ag POSITIVE NEGATIVE CALLED TO JESSICA BENITEZ RN @ [phone] This test has not been FDA cleared [...] is terminated or authorization is revoked sooner. Performing Lab: see note ML - [facility] LB RSV Reviewed date:01/08/2025 09:36:16 PM Interpretation: Performing Lab: Notes/Report: [facility] , Respiratory Syncytial Virus Not Detected NOT DETECTE Performing Lab: see note ML - [facility] LB MAGNESIUM Reviewed date:01/08/2025 09:36:16 PM Interpretation: Performing Lab: Notes/Report: [facility] , Magnesium 2.1 1.8-2.4 mg/dL Performing Lab: see note ML - [facility] LB LACTATE or LACTIC ACID Reviewed date:01/08/2025 09:36:16 PM Interpretation: Performing Lab: Notes/Report: [facility] , Lactate/Lactic Acid 1.5 0.4-2.0 mmol/L Performing Lab: see note ML - [facility] LB INFLUENZA A AND B AG Reviewed date:01/08/2025 09:36:16 PM Interpretation: Performing Lab: Notes/Report: [facility] , Influenza Virus A Antigen Negative Negative for Flu A protein antigen. Infection due to Flu A cannot be ruled out. Flu A antigen in the sample may be below the detection limit of the test. Influenza Virus B Antigen Negative Negative for Flu B protein antigen. Infection due to Flu B cannot be ruled out. Flu B antigen in the sample may be below the detection limit of the test. Performing Lab: see note ML - [facility] PROF CHEM 8 (BAS METB) Reviewed date:01/07/2025 07:51:37 PM Interpretation: Performing Lab: Notes/Report: [facility] , Sodium 139 136-145 mmol/L Potassium 4.3 3.5-5.1 mmol/L Chloride 100 98-107 mmol/L Carbon Dioxide 35.4 21.0-32.0 mmol/L Anion Gap 7.9 Glucose 166 74-106 mg/dL Blood Urea Nitrogen 33.0 7.0-18.0 mg/dL Creatinine 1.25 0.55-1.02 mg/dL Estimated GFR ( Ayana 52 >=60 mL/min/1.73m 2 Estimated GFR (Non- Kathy 43 >=60 mL/min/1.73m 2 BUN Creatinine Ratio 26.4 Calcium 9.3 8.5-10.1 mg/dL Performing Lab: see note - [facility] PROF CHEM 8 (BAS METB) Reviewed date:01/06/2025 09:44:14 PM Interpretation: Performing Lab: Notes/Report: [facility] , Sodium 140 136-145 mmol/L Potassium 4.1 3.5-5.1 mmol/L Chloride 103 98-107 mmol/L Carbon Dioxide 30.7 21.0-32.0 mmol/L Anion Gap 10.4 Glucose 230 74-106 mg/dL Blood Urea Nitrogen 28.0 7.0-18.0 mg/dL Creatinine 1.18 0.55-1.02 mg/dL Estimated GFR ( Ayana 55 >=60 mL/min/1.73m 2 Estimated GFR (Non- Kathy 46 >=60 mL/min/1.73m 2 BUN Creatinine Ratio 23.7 Calcium 9.3 8.5-10.1 mg/dL Performing Lab: see note - [facility] LB BNP Reviewed date:01/06/2025 09:44:14 PM Interpretation: Performing Lab: Notes/Report: Comment use blood from this am or skip [facility] , NT Pro B Type Natriuretic Pept 3735.0 <=900.0 pg/mL RESULTS CALLED TO France Winslow RN Performing Lab: see note - [facility] LB XR chest 2V Reviewed date:01/05/2025 12:57:10 PM Interpretation: Performing Lab: Notes/Report: Source Facility: [facility]-[address] [place] [address] [place] [address] XRay Report Signed Patient: DIANA CHAMPION MR#: [id number] : 1955 Acct:[id number] Age/Sex: 69 / F ADM Date: 01/02/25 Loc: [place] 214-[address]: Knady Zepeda M.D. Ordering Physician: Kandy Zepeda M.D. Date of Service: 01/05/25 Procedure(s): XR chest 2V Accession Number(s): [id number] cc: AIDA BLANC; Kandy Zepeda M.D. [address] [address] Patient Name: DIANA CHAMPION MRN: [id number] date: 1955 Sex: F Assigned Patient Location: [place] Current [place] Location[place] Accession/Order Number: [id number] Exam Date: 01/05/2025 09:39 Report Date: 01/05/2025 09:42 At the request of: KANDY ZEPEDA MD Procedure: XR chest 2V Chest 2 views CLINICAL HISTORY: follow up on pneumonia COMPARISON: Chest 01/02/2025 FINDINGS: Cardiomegaly with vascular congestion is unchanged. Improved aeration of the lungs when compared to the prior study with residual scattered areas of atelectasis. Trace left-sided pleural effusion. No pneumothorax or free air. XR/XR chest 2V IMPRESSION: IMPROVED AERATION OF THE LUNGS WITH SCATTERED AREAS OF ATELECTASIS AND LIKELY TRACE LEFT PLEURAL EFFUSION. CONTINUED FOLLOW-UP IS RECOMMENDED TO ENSURE RESOLUTION. Impression dictated by: Marcos Medina Jr., D.O.01/05/2025 9:42 AM Dictation Location: [place] [address] Electronically authenticated by: [id number] Y Date: 01/05/2025 09:42 Dictated By: Marcos Medina M.D. Signed By: 01/05/2545 DD/ 1 TD/TT: Home Health Attendant: The [address] [address] XRay Report Signed Patient: KRISTEN CHAMPION MR#: [id number] : 1955 Acct:[id number] Age/Sex: 69 / F ADM Date: 01/02/25 Loc: [place] 214-[address]: Samuel Zepeda M.D. Ordering Physician: Kandy Zepeda M.D. Date of Service: 01/05/25 Procedure(s): XR mine st 2V Accession Number(s): [id number] cc: AIDA BLANC; Kandy Zepeda M.D. [place] [id number] Patient Name: DIANA CHAMPION MRN: [id number] date: 1955 Sex: F Assigned Patient Location: [place] Current Patient Location: [place] Accession/Order Numb er: [id number] Exam Date: 01/05/2025 09:39 Report Date: 01/05/2025 09:42 At the request of: KANDY ZEPEDA MD Procedure: XR chest 2V Chest 2 views CLINICAL HISTORY: fo llow up on pneumonia COMPARISON: Chest 01/02/2025 FINDINGS: Cardiomegaly with vascular congestion is unchanged. Improved aeration of the lungs when compared to the prior study with residual scattered areas of atelectasis. Trace left-sided pleural effusion. No pneumothorax or free air. X R/XR chest 2V IMPRESSION: IMPROVED AERATION OF THE LUNGS WITH SCATTERED AREAS OF ATELECTASIS AND LIKELY TRACE LEFT PLEURAL EFFUSION. CONTINUED FOLLOW-UP IS RECOMMENDED TO ENSURE RESOLUTION. Impression dictated by: Marcos Medina Jr., D.O.01/05/2025 9:42 AM Dictation Location: [place] [address] Electronically authenticated by: [id number] Y Date: 01/05/2025 09:42 Dictated By: Marcos Medina M.D. Signed By: 01/05/2545 DD/ 1 TD/TT: Home Health Attendant: Venous Blood Gas Reviewed date:08/13/2024 06:54:33 AM Interpretation: Performing Lab: Notes/Report: [facility] , pH VBG 7.394 7.330-7.430 PCO2 VBG 52.9 40.0-52.0 mmHg Performing Lab: see note ML - [facility] LB Manual Differential Reviewed date:01/12/2025 09:41:19 AM Interpretation: Performing Lab: Notes/Report: [facility] , Segmented Neutrophils % Manual 94.0 43.0-75.0 Lymphocytes Percent Manual 2.0 20.5-60.0 % Monocytes Percent Manual 4.0 1.7-12.0 % Eosinophils Percent Manual 0.0 0.9-7.0 % Basophils Percent Manual 0.0 0.2-2.0 % Segmented Neut Absolute Manual 10.43 1.4-6.5 10 3/uL Lymphocytes Absolute Manual 0.22 1.20-3.80 10 3/uL Monocytes Absolute Manual 0.44 0.30-0.80 10 3/uL Eosinophils Absolute Manual 0.00 0.00-0.70 10 3/uL Basophils Abs Manual 0.00 0.00-0.10 1 0 3/uL Anisocytosis 1+ Performing Lab: see note - [facility] LB PROF CHEM 8 (BAS METB) Reviewed date:01/12/2025 09:41:19 AM Interpretation: Performing Lab: Notes/Report: [facility] , Sodium 135 136-145 mmol/L Potassium 4.6 3.5-5.1 mmol/L Chloride 99 98-107 mmol/L Carbon Dioxide 28.9 21.0-32.0 mmol/L Anion Gap 11.7 Glucose 260 74-106 mg/dL Blood Urea Nitrogen 37.0 7.0-18.0 mg/dL Creatinine 1.11 0.55-1.02 mg/dL Estimated GFR ( Ayana 59 >=60 mL/min/1.73m 2 Estimated GFR (Non- Kathy 49 >=60 mL/min/1.73m 2 BUN Creatinine Ratio 33.3 Calcium 8.5 8.5-10.1 mg/dL Performing Lab: see note - [facility] LB CBC AUTO DIFF Reviewed date:01/12/2025 09:41:19 AM Interpretation: Performing Lab: Notes/Report: [facility] , White Blood Count 11.1 4.0-11.0 10 3/uL Red Blood Count 4.24 4.20-5.40 10 6/uL Hemoglobin 12.7 12.0-16.0 g/dL Hematocrit 39.1 36.0-48.0 % Mean Corpuscular Volume 92.2 81.0-99.0 fL Mean Corpuscular Hemoglobin 30.0 26.7-34.0 pg Mean Corpuscular HGB Conc 32.5 29.9-35.2 g/dL Red Cell Distribution Width 13.8 11.0-15.0 % Platelet Count 303 150-450 10 3/uL Mean Platelet Volume 9.5 9.5-13.5 fL Performing Lab: see note ML - [facility] LB BNP Reviewed date:01/12/2025 09:41:19 AM Interpretation: Performing Lab: Notes/Report: The [facility] , NT Pro B Type Natriuretic Pept 548.0 <=900.0 pg/mL Performing Lab: see note - [facility] LB Gram Stain Evaluation Reviewed date:01/14/2025 04:11:49 PM Interpretation: Performing Lab: Notes/Report: [facility] , Gram Stain Evaluation See Below For Report Gram Stain Evaluation This specimen is of good quality and is acceptable for routine Gram Stain Evaluation bacterial culture. Gram Stain Evaluation This specimen is of good quality and is acceptable for routine Performing Lab: see note LC - [facility] LB Result 4 Reviewed date:01/14/2025 04:11:49 PM Interpretation: Performing Lab: Notes/Report: [facility] , Result 4 See Below For Report Result 4 BIOMEDICAL ENGINEERING TECHNICIAN Performing Lab: see note LC - [facility] LB Result 3 Reviewed date:01/14/2025 04:11:49 PM Interpretation: Performing Lab: Notes/Report: [facility] , Result 3 See Below For Report Result 3 BIOMEDICAL ENGINEERING TECHNICIAN Performing Lab: see note LC - [facility] LB Result 2 Reviewed date:01/14/2025 04:11:49 PM Interpretation: Performing Lab: Notes/Report: [facility] , Result 2 See Below For Report Result 2 BIOMEDICAL ENGINEERING TECHNICIAN Performing Lab: see note LC - [facility] LB Result 1 Reviewed date:01/14/2025 04:11:49 PM Interpretation: Performing Lab: Notes/Report: [facility] , Result 1 See Below For Report Result 1 No organisms seen Performing Lab: see note LC - [facility] LB Epithelial Cells Reviewed date:01/14/2025 04:11:49 PM Interpretation: Performing Lab: Notes/Report: [facility] , Epithelial Cells See Below For Report Epithelial Cells Few Performing Lab: see note LC - [facility] LB White Blood Cells Reviewed date:01/14/2025 04:11:49 PM Interpretation: Performing Lab: Notes/Report: [facility] , White Blood Cells See Below For Report White Blood Cells White Blood Cells None seen White Blood Cells Performing Lab: see note LC - [facility] LB Reason For Referral Reason Acquired dynamic air way collapse, failing traditional treatments - please provide opinion on any other possible options Diagnosis 1 Other pulmonary jia apse (J98.19) Diagnosis 2 Critical illness azael margarita (G72.81) Referral Organization [facility] [place] Referring Provider First Name Bo Referring Provider Last Name Marianne Referring Provider Speciality Pulmonolog y Referred Provider Emelia Owens Referred Provider Specialty Pulmonary Di seases General Notes Dawit Pisano 06/13 01:22:37 PM >Images pushed via PACS from [facility] to [facility] by Leeanne Saleh in Radiology., Dawit Pisano 06/13/2024 01:23:26 PM >Referral faxed electronically and manually to [facility]-., Dawit Pisano 06/18/2024 03:34:55 PM >I called and spoke with Ariella at 's office to find out if the patient is scheduled for an appt. Per Ariella the patient has been contacted and scheduled for 06/25/2024., Dawit Pisano 07/01/2024 02:45:21 PM >I called and left a voicemail with Ariella at 's to request the consult letter and any testing for the patient., Dawit Pisano 07/01/2024 03:44:34 PM >Consult Note received via fax. Per Ariella at 's office the patient is scheduled for a Bronch tomorrow at [facility]. Referral Priority Routine Referral Appointment Date 06/25/2024 Medications Medication SIG (Take, Route, Frequency, Duration) Notes Start Date End Date Status Albuterol Sulfate (2.5 MG/3ML) 0.083% 3mL Inhalation QID for 90 days Dispense #360 nebules Active Latanoprost 0.005 % INSTILL 1 DROP INTO EACH EYE AT BEDTIME Ophthalmic for 45 Days Active Omeprazole 20 MG 1 capsule 30 minutes before morning meal Orally BID Active Iron 325 (65 Fe) MG 1 tablet Orally Every other day Active Ohtuvayre 3 MG/2.5ML 2.5 mL Inhalation Twice a day 04/02/2025 Active Montelukast Sodium 10 MG 1 tablet Orally Once a day for 90 days Active traZODone HCl 100 MG 1 tablet at bedtime as needed Orally Once a day Active Breztri Aerosphere 160-9-4.8 MCG/ACT 2 puffs Inhalation Twice a day for 90 days Rinse after use Patient has myopathy and unable to generate enough inspiratory force for dry powder inhalers 02/24/2025 Active Sodium Chloride 0.9 % 3mL Inhalation TID for 30 Active Albuterol Sulfate HFA 108 (90 Base) MCG/ACT 2 puffs as needed for SOB Inhalation every 4 hrs Active Magnesium Oxide 400 MG 1 tablet as needed Orally Once a day Active Pregabalin 75 MG Oral for 30 Days Active Pramipexole Dihydrochloride 0.25 MG Oral for 30 Days Active Vitamin D3 25 MCG (1000 UT) 1 capsule Orally Once a day Active Fluticasone Propionate 50 MCG/ACT 2 squirts in each nostril Nasally QD for 90 days Dispense 3 bottles Active Mucinex 600 MG 1 tablet as needed Orally every 12 hrs for 90 days Active Clotrimazole 10 MG 1 neelima Mouth/Throat QID for 10 days Dissolve in mouth 05/02/2023 Active Trospium Chloride ER 60 MG Oral for 30 Days Active Immunizations Vaccine Route Administration Date Status Comme nts Arexvy Unknown 08/18/2023 Administered Comirnaty The Poshpacker Syringe Pre -Filled 30 mcg/0.3 mL Unknown 09/20/2024 Administered Flu, Fluad (37406) 65 yrs + High Dose Seasonal (5066-9459) Unknown 09/06/2024 Administered Flu, Fluzone High-Dose (2022 -2023) (16636) 65 yrs+ Unknown 08/26/2023 Administered Pneumococcal (Pneumovax 23) Unknown 10/19/2018 Administ ered Pneumococcal (Prevnar 20) Unknown 08/09/2023 Administer ed Spikevax Moderna Syringe Pre -Filled 50 mcg/0.5 mL Unknown 08/26/2023 Administered ZOSTER (SHINGLES) VACCINE (HZV) Unknown 11/01/2022 Admi nistered Social History Tobacco Use: Social History Observation Description Date Details (start date - stop date) Never Smoker NA - NA Tobacco Control (Standard) Question Answer Notes Tobacco use: Nonsmoker Problems Problem Type SNOMED Code ICD Code Onset Dates Problem Status W/U Status Risk Notes Problem 600995079 Morbid (severe) obesity due to excess calories (E66.01) Active confirmed Problem 070564315 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 Problem Chronic respiratory failure (29673411) Chronic respiratory failure with hypoxia (J96.11) Active confirmed Problem Pulmonary collapse (04082157) Other pulmonary collapse (J98.19) Active confirmed Dynamic airway collapse Problem 719276180 FDC (current) use of inhaled steroids (Z79.51) Active confirmed Problem Chronic obstructive pulmonary disease (81314934) Chronic obstructive pulmonary disease (J44.9) Active confirmed Prior treatment: Trelegy 100 > Breo 100 > Spiriva > albuterol > Atrovent Problem Restless legs syndrome (64694099) Restless leg syndrome (G25.81) Active confirmed Problem Depression (886664894) Depression (F32.9) Active confirmed Problem Allergic rhinitis (63806394) Allergic rhinitis (J30.9) Active confirmed Problem Restrictive lung disease (61681218) Restrictive lung disease (J98.4) Active confirmed Problem Multiple pulmonary nodules (207924285) Multiple pulmonary nodules (R91.8) Active confirmed Problem Lung field abnormal (461658787) Ground glass opacity present on imaging of lung (R91.8) Active confirmed Problem Gastroesophageal reflux disease (533409952) Gastroesophageal reflux disease (K21.9) Active confirmed Problem Exacerbation of asthma (442347570) Asthma with acute exacerbation (J45.901) Active confirmed Problem Daytime sleep (362110749) Daytime hypersomnolence (G47.19) Active confirmed Problem Pneumonia (994199413) Healthcare-associ ated pneumonia (J18.9) Active confirmed Problem Secondary pulmonary hypertension (59563513) Other secondary pulmonary hypertension (I27.29) Active confirmed Problem 96788890 Allergic rhinitis, unspecified seasonality, unspecified trigger (J30.9) Active confirmed Problem Lumbar spinal stenosis (23713748) Lumbar stenosis (M48.061) Active confirmed Problem History of COVID-19 (30958900038225501 5) History of COVID-19 (Z86.16) Active confirmed 04/04/2023: Severe associated hypoxic respiratory failure Problem Body mass index 40+ - severely obese (000475476) Body mass index [BMI] 40.0-44.9, adult (Z68.41) Active confirmed Vital Signs Heart Rate 80 /min 04/02/2025 3L O2 Activity/ Resting Temperature 96.8 degrees Fahrenheit 04/02/2025 3L O 2 Activity/Resting Respiratory Rate 20 /min 04/02/2025 3L O2 Activ ity/Resting Blood pressure diastolic 66 mm Hg 04/02/2025 3L O2 Activity/Resting Oximetry 95 % 04/02/2025 3L O2 Activity/ Resting Height 61 in 04/02/2025 3L O2 Activity/ Resting Blood pressure systolic 129 mm Hg 04/02/2025 3L O 2 Activity/Resting Weight 235.0 lbs 04/02/2025 3L O2 Activity/ Resting BMI 44.4 kg/m2 04/02/2025 3L O2 Activity/ Resting Encounters Encounter Location Date Provider Diagnosis [facility] [address] [facility] [place] [address] 12/09/2024 [facility] [place] [address] [facility] [place] [address] 01/08/2025 [facility] [place] [address] [place] [address] 01/14/2025 [facility] [address] [place] [facility] [place] [address] 01/14/2025 Kwabena Zepeda [facility] [place] [address] [facility] [place] [address] 02/24/2025 [facility] Chronic obstructive pulmonary disease J44.9 [facility] [place] [address] [facility] [place] [address] 07/23/2024 [facility] [place] [address] [facility] [place] [address] 08/12/2024 [facility] [place] [address] [facility] [place] [address] 09/12/2024 [facility] [place] [address] [facility] [place] [address] 11/04/2024 [facility] [place] [address] [facility] [place] [address] 11/12/2024 [facility] Chronic obstructive pulmonary disease J44.9 [facility] [address] [facility] [place] [address] 11/28/2024 [facility] [place] [address] [facility] [place] [address] 05/28/2024 [facility] Chronic obstructive pulmonary disease J44.9 [facility] [place] [address] [facility] [place] [address] 06/12/2024 [facility] [address] [facility] [place] [address] 08/06/2024 [facility] 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 ; Restrictive lung disease J98.4 ; Chronic obstructive pulmonary disease J44.9 ; Other pulmonary collapse J98.19 ; Chronic respiratory failure with hypoxia J96.11 ; Allergic rhinitis J30.9 ; Daytime hypersomnolence G47.19 ; Restless leg syndrome G25.81 ; FDC (current) use of inhaled steroids Z79.51 ; History of COVID-19 Z86.16 ; Morbid (severe) obesity due to excess calories E66.01 and Body mass index [BMI] 40.0-44.9, adult Z68.41 [facility] [address] [place] [address] 12/10/2024 [facility] Chronic obstructive pulmonary disease with (acute) exacerbation J44.1 and Candidal stomatitis B37.0 [facility] [address] [place] [address] 06/12/2024 [facility] 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 ; Chronic obstructive pulmonary disease J44.9 ; Other pulmonary collapse J98.19 ; Chronic respiratory failure with hypoxia J96.11 ; Candidal stomatitis B37.0 ; Allergic rhinitis J30.9 ; Daytime hypersomnolence G47.19 ; Multiple pulmonary nodules R91.8 ; Restless leg syndrome G25.81 ; FDC (current) use of inhaled steroids Z79.51 ; History of COVID-19 Z86.16 ; Morbid (severe) obesity due to excess calories E66.01 and Body mass index [BMI] 40.0-44.9, adult Z68.41 [facility] [address] [place] [address] 10/22/2024 [facility] Chronic obstructive pulmonary disease J44.9 ; Other pulmonary collapse J98.19 ; Seborrheic dermatitis, unspecified L21.9 ; 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 ; Chronic respiratory failure with hypoxia J96.11 ; FDC (current) use of inhaled steroids Z79.51 ; History of COVID-19 Z86.16 and Morbid (severe) obesity due to excess calories E66.01 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 ; History of COVID-19 Z86.16 and Morbid (severe) obesity due to excess calories E66.[address] [address] 09/03/2024 [facility] Chronic obstructive pulmonary disease J44.9 ; Healthcare-associated pneumonia J18.9 ; Other pulmonary collapse J98.19 ; 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 ; Encounter for immunization Z23 ; Chronic respiratory failure with hypoxia J96.11 ; Allergic rhinitis J30.9 ; Daytime hypersomnolence G47.19 ; FDC (current) use of inhaled steroids Z79.51 ; History of COVID-19 Z86.16 ; Morbid (severe) obesity due to excess calories E66.01 and Body mass index [BMI] 40.0-44.9, adult Z68.41 [facility] [address] [place] [address] 01/29/2025 [facility] Chronic obstructive pulmonary disease J44.9 ; Other pulmonary collapse J98.19 ; 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 ; Other secondary pulmonary hypertension I27.29 ; Chronic respiratory failure with hypoxia J96.11 ; FDC (current) use of inhaled steroids Z79.51 ; History of COVID-19 Z86.16 and Morbid (severe) obesity due to excess calories E66.01 Assessments Encounter Date Diagnosis (ICD Code) Assessment Notes Treatment Notes Treatment Clinical Notes Section Notes 06/12/2024 Critical illness myopathy (ICD-10 - G72.81) Kbev-vw-fxok encounter performed with the patient to document continued need for a high frequency chest wall oscillation (vest) device. -Use of vest twice daily: She has improved her compliance to using it twice daily -Improvement of mobilization and clearance of secretions: Yes -Amplitude/frequency of oscillations tolerable: Yes -Continues to use nebulized saline: Yes -Continues to use PEP device: Yes, patient has been using it multiple times during the day -Recommendations: Patient has improved her compliance with the vest and PEP, along with hypertonic saline. Despite this, she continues to have difficulty with clearance of secretions. 06/12/2024 Chronic obstructive pulmonary disease (ICD-10 - J44.9) Prior treatment: Trelegy 100 > Breo 100 > Spiriva > albuterol > Atrovent Patient is recovering from yet another exacerbation this past weekend. Continue current respiratory therapy. Given severity of illness, continue with every 3-month monitoring. 08/06/2024 Critical illness myopathy (ICD-10 - G72.81) Urei-qo-jwzo encounter performed with the patient to document continued need for a high frequency chest wall oscillation (vest) device. -Use of vest twice daily: Yes -Improvement of mobilization and clearance of secretions: Yes, but not optimized -Amplitude/frequency of oscillations tolerable: Yes -Continues to use nebulized saline: Yes -Continues to use PEP device: Multiple times throughout the day -Recommendations: As documented in the past, despite the treatment with PEP, nebulized saline, and vest, she is still unable to adequately clear secretions due to her neuromuscular weakness and severe tracheobronchomalacia. Continue with pulmonary toilet for now, and start the initial paperwork for NIV treatment 08/06/2024 Restrictive lung disease (ICD-10 - J98.4) The patient has developed restrictive lung disease associated with her critical illness myopathy, ultimately culminating in severe tracheobronchomalacia. She has failed multiple treatments including PEP, hypertonic saline, and vest device. She has been evaluated by interventional pulmonology (Dr. Owens) who confirmed the severe tracheobronchomalacia and recommended NIV as patient did not want to pursue tracheobronchoplasty at this time. GURWINDER has been ruled out via PSG on 01/02/2024 with AHI 2.5 (based on Medicare 4% criteria). Patient was assessed today on neuromuscular strength via NIFometer. I personally instructed the patient on appropriate technique. Despite 3 adequate attempts, she was only able to generate an NIF (MIP) of -[id number]. This neuromuscular weakness is not secondary to COPD. It is associated with her critical illness myopathy associated with COVID. The patient has had 3 hospital admissions this calendar year alone (04/12/2024, 02/03/2024, 11/26/2023) secondary to her neuromuscular weakness causing her inability to clear secretions leading to exacerbations and development of pneumonia. In my opinion, non-invasive mechanical ventilation is now indicated. NIV which utilizes AVAPS AE with back-up respiratory rate due to a need for targeted tidal volume, and monitored airway patency to adjust the EPAP are required to appropriately overcome the tracheobronchomalacia and neuromuscular weakness to improve adequate airflow, augment clearance of secretions, and assist alveolar recruitment as it is also impacting her oxygenation (SpO2 86% on baseline 3L/min O2). Without AVAPS AE therapy, this patient is at increased risk for frequent hospitalizations, including life-threatening infections such as pneumonia, mucus plugging, and the risk of both worsening hypoxic as well as acute hypercapnic respiratory failure. This is a lmwb-li-xodu visit performed with the patient today to discuss the need for NIV, to which the patient voiced agreement to proceed. 09/03/2024 Chronic obstructive pulmonary disease (ICD-10 - J44.9) Prior treatment: Trelegy 100 > Breo 100 > Spiriva > albuterol > Atrovent Patient seems to doing better after her hospitalization. Continue current therapy, especially pulmonary toilet. 09/03/2024 Healthcare-associ ated pneumonia (ICD-10 - J18.9) Patient hospitalized the beginning of August 2024. She seems to be recovering very well. No further antibiotics necessary. 10/22/2024 Chronic obstructive pulmonary disease (ICD-10 - J44.9) Prior treatment: Trelegy 100 > Breo 100 > Spiriva > albuterol > Atrovent From a dyspnea standpoint, she is doing well on Trelegy. Main complaint continues to be cough. Discussed new medication Ohtuvayre to add on top of all her other medications. She stated that she was okay with her current regimen. 10/22/2024 Other pulmonary collapse (ICD-10 - J98.19) Dynamic airway collapse Tracheobronchomalacia Avsv-xi-pdxp performed today regarding continued need for NIV. She is doing well on NIV. Reviewed compliance of NIV from 09/22/2024 to 10/21/2024. She has excellent compliance of 29 out of 30 days (97%) of use for greater than 4 hours. Median airleak is 9.3L/min and residual AHI is 4.8. Median tidal volume is 407mL. She states she is doing very well with this. She has remained out of the hospital since starting NIV. Her only complaint is a rash along nasolabial folds/circumoral. This is not appear to be a classic contact dermatitis rash. It appears more as a seborrheic dermatitis. I contacted [facility] and they stated that their masks are generally hypoallergenic and should not cause issues. Possible that the mask is exacerbating underlying seborrheic dermatitis, and upon further examination, she did have signs of this in her eyebrows, especially the right. I suggested the patient wash her face at least twice a day with Selsun Blue to see if that improves. [facility] is also going to go to her house in do a spot check to see if she is using the mask appropriately. If rash continues, she is advised to follow-up with her PCP. 12/10/2024 Chronic obstructive pulmonary disease with (acute) exacerbation (ICD-10 - J44.1) Given the change in mucus consistancy & color, on top of sweats, ongoing for 5-6 days, will err to treat (especially with her history). Most recently on Rocephin, Zithromax, and doxycycline - will Rx Augmentin 500. Not wheezy today, but will send in prednisone taper for her to take if she begins to develop chest tightness, wheezing, etc. Keep January appointment. 12/10/2024 Candidal stomatitis (ICD-10 - B37.0) Mild candidiasis, likely secondary to steroids + antibiotics. May worsen with Augmentin. She has clotrimazole troches at home - she was instructed to use them. 01/29/2025 Chronic obstructive pulmonary disease (ICD-10 - [...] changing ICS/LABA/LAMA completely to nebulized formulartions (e.g. Pulmicort/Brovana/Yupel ri), but then she could have 6 different nebulized solutions (these 3 on top of sodium chloride, albuterol, and Ohtuvayre) - this could be extremely confusing. Will see how she responds to Breztri first. F/U 2 months. 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 Compliance from 12/29/2024 - 01/23/2025 was reviewed. She continues to voice improved breathing using NIV. There is a slight decrease in compliance from January 08 through secondary to her hospital admission. Other than that, she continues to do very well. Her rash has resolved. 04/02/2025 Chronic obstructive pulmonary disease (ICD-10 - J44.9) Prior treatment: Breztri > Trelegy 200 > Trelegy 100 > Breo 100 > Spiriva > albuterol > Atrovent She is doing better since hospitalization. Breztri working much better than Trelegy - it requires less NIF than Trelegy. Will continue current treatment for now. Reassess in 3 months given severity of her pulmonary disease. 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 Compliance from 02/26/2025 - 03/27/2025 was reviewed. Doing awesome with NIV - despite hospitalization and rehab stint, she was still able to have her son bring in her NIV and she maintained excellent compliance at 28/30 days (93%). Residual AHI 4.1. No issues with mask, pressures, etc. No complaints of rash today. 01/29/2025 Critical illness myopathy (ICD-10 - G72.81) Vklt-on-jlyk encounter performed with the patient to document [...] it. Continue vest, PEP, and saline nebs. 10/22/2024 Seborrheic dermatitis, unspecified (ICD-10 - L21.9) As above, suggested patient scrub her face twice daily with Selsun Blue. Any further treatment, follow-up with PCP. 09/03/2024 Other pulmonary collapse (ICD-10 - J98.19) Dynamic airway collapse Patient began using her NIV during hospitalization the beginning of August. She voices improvement in her breathing. She states that she is able to expectorate better. Her sleep is improved with less nocturnal awakenings, as she feels less tired during the day, though she still has some hypersomnolence. In my opinion, she has better color. Rhonchi are markedly improved on examination. She denies any issues with the pressure, volumes, mask fitting, air leak, etc. As it has been less than 30 days since starting the NIV, she will need to return within the next 2 months to be compliance. Will reschedule her follow-up appointment for 6 weeks for NIV compliance check. 08/06/2024 Chronic obstructive pulmonary disease (ICD-10 - J44.9) Prior treatment: Trelegy 100 > Breo 100 > Spiriva > albuterol > Atrovent Patient is recovering from yet another exacerbation this past weekend. Continue current respiratory therapy. Given severity of illness, continue with every 3-month monitoring. 06/12/2024 Other pulmonary collapse (ICD-10 - J98.19) Dynamic airway collapse As before: Evidence of dynamic airway collapse on CTA. COPD most likely contributing factor. She did well on BiPAP during hospitalization. Prior PSG 08/11/2014 was negative for GURWINDER. Repeated PSG 01/02/2024 - there is no diagnosis of GURWINDER according to this study either - AHI = 2.5 according to Medicare 4% rule. She will not qualify for a PAP through GURWINDER mechanisms. Despite compliance with a good pulmonary toilet, including hypertonic saline, PEP, and vest, she continues to have difficulty with clearance of secretions leading to multiple admissions to the hospital this past year. She has dynamic airway collapse, but does not qualify for CPAP therapy as she did not meet the diagnostic criteria for obstructive sleep apnea. As she is symptomatic, discussed therapeutic bronchoscopy for clearance of secretions; however, review of chest CT from 06/07/2024 did not show a significant amount of mucous plugging. Explained the patient that I have few options left for her. I am unclear if she would be a candidate for any bronchial stenting, though this is usually reserved for very severe cases commonly associated with neoplasm. I suggested referral to interventional pulmonology to see if there are any other options available that I may not be aware of, or simply for a second opinion. In the end, this may be the optimal treatment she is able to have. The patient voiced agreement to referral to interventional pulmonology for second opinion. 06/12/2024 Chronic respiratory failure with hypoxia (ICD-10 - J96.11) Cumh-ho-unwu encounter performed with the patient to document continued need for supplemental oxygen (O2). -Flow & directions: 3L/min ATC -Data: SpO2 87% on 3L/min upon arrival, recovered to 95% upon resting -Patient voices adherence to recommended usage: Yes -Symptom control on O2: Relief of dyspnea with oxygen use -Counseled patient not begin, restart, or continue [...] to the point of requiring O2. -Recommendations: Oxygenation remains tenuous, does have desaturations with ambulation at 3L/min. Will observe for now. 08/06/2024 Other pulmonary collapse (ICD-10 - J98.19) Dynamic airway collapse . Patient was evaluated by interventional pulmonology with bronchoscopy on 07/02/2024 confirming the presence of severe tracheobronchomalacia leading to dynamic airway collapse. The severe neuromuscular weakness of the posterior tracheal and main bronchi mackenzie are consequence of the critical illness myopathy associated with COVID. She is unable to clear secretions despite an aggressive pulmonary toilet. This is affecting her oxygenation and has contributed to 3 hospitalizations this past calendar year alone. As above, beginning initial paperwork for NIV treatment. It was recommended for referral to [facility] for tracheobronchoplasty, but patient wished to have conservative treatment for now. 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) Pmvn-bh-qolw encounter performed with the patient to document continued need for a high frequency chest wall oscillation (vest) device. -Use of vest twice daily: Yes -Improvement of mobilization and clearance of secretions: Yes -Amplitude/frequency of oscillations tolerable: Yes -Continues to use nebulized saline: Yes -Continues to use PEP device: Yes, patient has been using it multiple times during the day -Recommendations: Patient remains on PAP, saline nebs, and vest twice daily. Along with NIV use, her pulmonary toilet is optimized. She is expectorating better, and her breath sounds are the best I have heard in a long time. 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 -Use of vest twice daily: Yes -Improvement of mobilization and clearance of secretions: Yes -Amplitude/frequency of oscillations tolerable: Yes -Continues to use nebulized saline: Yes -Continues to use PEP device: She continues to use it multiple times throughout the day. -Recommendations: Patient has a good pulmonary toilet regimen with her PEP, saline nebs, vest, and NIV. She still has difficulty with clearance of secretions, but at this point, I feel she is maximized what I am able to do outpatient simental. She has been able to stay out of the hospital. Continue vest BID. 01/29/2025 Other secondary pulmonary hypertension (ICD-10 - [...] inhibitor given patient's recent episodes of lightheadedness. 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 01/29/2025 Chronic respiratory failure with hypoxia (ICD-10 - J96.11) Bjqo-gk-hdcx encounter performed with the patient to document [...] requiring O2. -Recommendations: Continue O2 as directed 10/22/2024 Chronic respiratory failure with hypoxia (ICD-10 - J96.11) Kxkg-wp-pgta encounter performed with the patient to document continued need for supplemental oxygen (O2). -Flow & directions: 3L/min ATC -Patient voices adherence to recommended usage: Yes -Symptom control on O2: Less SOB -Counseled patient not begin, restart, or continue [...] to the point of requiring O2. -Recommendations: Oxygenation remains tenuous at times, SpO2 87% on 3L/min. Patient does not feel any more short of breath at this saturation, so will continue to monitor for now. 09/03/2024 Encounter for immunization (ICD-10 - Z23) We discussed immunizations today. I recommended influenza. She can get that now as she is nearly 4 weeks out from her hospitalization. Discussed COVID-19. Vaccination is recommended by the CDC. As she has significant underlying pulmonary disease, I feel the risks outweigh the benefits. There is a new nonmRNA COVID-vaccine out, but I do not have enough data on this to give her a more informed recommendation. The patient voiced that she would like to get a COVID-vaccine, no matter which one. Though they can be given at the same time, I recommended spacing out influenza and COVID vaccines by at least 2 weeks in this particular patient. 08/06/2024 Chronic respiratory failure with hypoxia (ICD-10 - J96.11) Srki-ai-pqko encounter performed with the patient to document continued need for supplemental oxygen (O2). -Flow & directions: 3L/min ATC -Data: SpO2 86% on 3L/min O2 on arrival -Patient voices adherence to recommended usage: Yes -Symptom control on O2: Relief of dyspnea with oxygen use -Counseled patient not begin, restart, or continue [...] to the point of requiring O2. -Recommendations: Patient continues to require supplemental oxygen and remains hypoxic despite 3 L minute with activity. This is a consequence of her neuromuscular weakness/restrictive lung disease failing to allow adequate airflow to alveoli to facilitate air exchange. 06/12/2024 Candidal stomatitis (ICD-10 - B37.0) Patient has developed oral candidiasis secondary to steroids and antibiotics from recent inpatient admission. She states she has clotrimazole troches at home and that she will start using them. She declined any refills at this time. 06/12/2024 Allergic rhinitis (ICD-10 - J30.9) Patient advised to continue saline rinses and Flonase. 08/06/2024 Allergic rhinitis (ICD-10 - J30.9) Patient continue saline rinses and Flonase. 09/03/2024 Chronic respiratory failure with hypoxia (ICD-10 - J96.11) Ywep-ut-nsgx encounter performed with the patient to document continued need for supplemental oxygen (O2). -Flow & directions: 3L/min ATC -Patient voices adherence to recommended usage: Yes -Symptom control on O2: Improved dyspnea -Counseled patient not begin, restart, or continue [...] to the point of requiring O2. -Recommendations: Oxygenation is doing fair at this time on 3L/min. Continue O2 ATC. 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 04/02/2025 Chronic respiratory failure with hypoxia (ICD-10 - J96.11) Xwuo-ga-vmqi encounter performed with the patient to document [...] requiring O2. -Recommendations: Continue O2 ATC. 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 01/29/2025 History of COVID-19 (ICD-10 - Z86.16) 04/04/2023: Severe associated hypoxic respiratory failure 10/22/2024 History of COVID-19 (ICD-10 - Z86.16) 04/04/2023: Severe associated hypoxic respiratory failure 09/03/2024 Allergic rhinitis (ICD-10 - J30.9) Continue saline rinse and Flonase. 08/06/2024 Daytime hypersomnolence (ICD-10 - G47.19) As before: Hypersomnolence is not associated with any GURWINDER - PSG x2 continue to document no diagnosis of GURWINDER (AHI 2.5 on PSG 01/02/2024). Associated with multiple medical conditions, medications, and deconditioning. 06/12/2024 Daytime hypersomnolence (ICD-10 - G47.19) As before: Hypersomnolence is not associated with any GURWINDER - PSG x2 continue to document no diagnosis of GURWINDER (AHI 2.5 on PSG 01/02/2024). Associated with multiple medical conditions, medications, and deconditioning. 06/12/2024 Multiple pulmonary nodules (ICD-10 - R91.8) As above, residual GGO and trace bibasilar infiltrates overall improved on 02/06/2024 when compared to 11/25/2023. CT chest 04/11/2024 showed improvement. Previously a 6 month F/U was ordered for 08/2024. Will cancel that at this time. 08/06/2024 Restless leg syndrome (ICD-10 - G25.81) Not associated with any GURWINDER. 09/03/2024 Daytime hypersomnolence (ICD-10 - G47.19) Improved some with NIV. No evidence of underlying GURWINDER. 10/22/2024 Morbid (severe) obesity due to excess calories (ICD-10 - E66.01) Patient's weight is inducing a restrictive pulmonary physiology. Weight loss indicated: Decrease calories, increase activity. Patient's weight is inducing a restrictive pulmonary physiology. Weight loss indicated: Decrease calories, increase activity. 01/29/2025 Morbid (severe) obesity due to excess calories (ICD-10 - E66.01) Patient's weight is inducing a restrictive pulmonary physiology. Weight loss indicated: Decrease calories, increase activity. 04/02/2025 History of COVID-19 (ICD-10 - Z86.16) 04/04/2023: Severe associated hypoxic respiratory failure 04/02/2025 Morbid (severe) obesity due to excess calories (ICD-10 - E66.01) Patient's weight is inducing a restrictive pulmonary physiology. Weight loss indicated: Decrease calories, increase activity. 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 08/06/2024 FDC (current) use of inhaled steroids (ICD-10 - Z79.51) Patient was counseled to rinse & gargle with water after inhaled corticosteroid use. 06/12/2024 Restless leg syndrome (ICD-10 - G25.81) Not associated with any GURWINDER. 06/12/2024 FDC (current) use of inhaled steroids (ICD-10 - Z79.51) Patient was counseled to rinse & gargle with water after inhaled corticosteroid use. 08/06/2024 History of COVID-19 (ICD-10 - Z86.16) 04/04/2023: Severe associated hypoxic respiratory failure 09/03/2024 History of COVID-19 (ICD-10 - Z86.16) 04/04/2023: Severe associated hypoxic respiratory failure 09/03/2024 Morbid (severe) obesity due to excess calories (ICD-10 - E66.01) Patient's weight is inducing a restrictive pulmonary physiology. Weight loss indicated: Decrease calories, increase activity. Patient's weight is inducing a restrictive pulmonary physiology. Weight loss indicated: Decrease calories, increase activity. 08/06/2024 Morbid (severe) obesity due to excess calories (ICD-10 - E66.01) Patient's weight is inducing a restrictive pulmonary physiology. Weight loss indicated: Decrease calories, increase activity. 06/12/2024 History of COVID-19 (ICD-10 - Z86.16) 04/04/2023: Severe associated hypoxic respiratory failure 06/12/2024 Morbid (severe) obesity due to excess calories (ICD-10 - E66.01) Patient's weight is inducing a restrictive pulmonary physiology. Weight loss indicated: Decrease calories, increase activity. Patient's weight is inducing a restrictive pulmonary physiology. Weight loss indicated: Decrease calories, increase activity. 08/06/2024 Body mass index [BMI] 40.0-44.9, adult (ICD-10 - Z68.41) 09/03/2024 Body mass index [BMI] 40.0-44.9, adult (ICD-10 - Z68.41) 06/12/2024 Body mass index [BMI] 40.0-44.9, adult (ICD-10 - Z68.41) 06/12/2024 Other LLL infiltrate noted on CTA 11/25/2023. Developed HCAP end of January 2024. F/U chest CT 02/06/2024 notes improvement in the GGO with trace bibasilar infiltrates. Does not appear acutely ill, but does continue to have diffuse rhonchi and copious secretions. Continue pulmonary toilet. Will need F/U chest CT in 6-12 months to document stability. Improving, nearing baseline. Still has some dyspnea and coughing symptoms, but she has restarted her PEP and vest since discharge and is doing well with them. We discussed in the hospital and again today about starting on daily prednisone. My main concern is for all the adverse effects associated with chronic prednisone - there is risk that it could worsen her underlying critical illness myopathy. Today, she stated I do not feel that I need it. Patient has appointment previously scheduled on 06/12/2024 - will readdress this with her then. Clinically resolved. 08/06/2024 Other Patient has developed oral candidiasis secondary to steroids and antibiotics from recent inpatient admission. She states she has clotrimazole troches at home and that she will start using them. She declined any refills at this time. 09/03/2024 Other 10/22/2024 Other 01/29/2025 Other As above, suggested patient scrub her face twice daily with Selsun Blue. Any further treatment, follow-up with PCP. 04/02/2025 Other As above, suggested patient scrub her face twice daily with Selsun Blue. Any further treatment, follow-up with PCP. Plan Of Treatment Next Appt Details Provider Name:Bo Mcclain, 05/01/2025 01:00:00 PM, [address] [place], [address], Provider Name:Bo Mcclain, 07/02/2025 10:30:00 AM, [address] [place], [address], Insurance Providers Payer Name Payer Address Payer Phone Subscriber Number Group Number Insured Name Patient Relationship to Insured Coverage Start Date Coverage End Date [employer] [address] [place] [address] [id number] Diana Champion Self - patient is the insured 5 5 [employer] [address] [place], [place] [id number] Diana Champion Self - patient is the insured 5 MEDICAID [place] 2ND INS [address] [place], [place] [id number] Diana Champion Self - patient is the insured Medical (General) History Medical History History ICD Code Restrictive lung disease J98.4 Pneumonitis J18.9 Multiple pulmonary nodules R91.8 Chronic obstructive pulmonary disease J4 4.9 Chronic kidney disease, stage 3 unspecif ied N18.30 Colon cancer C18.9 Coronary artery disease I25.10 Depression F32.A Essential Hypertension I10 Gastroesophageal reflux disease K21.9 Hyperlipidemia E78.5 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 Hyperuricemia E79.0 Restless leg syndrome G25.81 Urge incontinence N39.41 Vitamin D deficiency E55.9 History of COVID-19 Z86.16 Other secondary pulmonary hypertension I 27.29 Other pulmonary collapse J98.19 Chronic respiratory failure with hypoxia J96.11 Daytime hypersomnolence G47.19 Allergic rhinitis J30.9 Ground glass opacity present on imaging of lung R91.8 Healthcare-associated pneumonia J18.9 Surgical History Surgery Date(Month/Year) Bronchoscopy- 07/02/2024 left hip replacement right knee replacement Right Foot Surgery tubal ligation Cardiac Catheterization spinal fusion Hospitalization History Reason Date(Month/Year) HCAP - [facility] 03/11/2025 COVID & Pseudomonas pneumonia-[facility] 2024 Asthma/COPD Exacerbation-[facility] 01/02/2025 COPD Exacerbation, pneumonia-[facility] Hospital Acquired Pneumonia-[facility] 08/08/20 COPD Exacerbation-[facility] 06/07/2024 COPD Exacerbation-[facility] 04/11/2024 Pneumonia-[facility] 02/03/2024 Sepsis/Pneumonia-[facility] 11/25/2023 Fsyqd-11-[facility] 04/10/2023
--- OUTSIDE RECORDS SUMMARY | 2025-04-30 12:42 | XMS_ITS | Encounter Summary ---
Author Organization [facility] Address [address] [place] [address] Care Team Providers Care Rn Float Name Role Phone Shaikh BONNY Ohara Primary Care Provider [phone] Ariella Mathis DO Unavailable [phone] Tapan Barboza MD Primary Care Provider [phone] Mae Reese SECRETARY ADMINISTRATIVE ASSISTANT Unavailable [phone] Encounter Details Date Type Department Care Team (Late st Contact Info) Description 03/27/2024 Clinisync Result Encounter [facility] Unsolicited Shaikh Ohara MD [address] [place] [id number] Social History Tobacco Use Types Packs/Day Years [...] week 10/26/2023 How often do you attend [facility] or scientologist services? More than 4 times per year 10/26/2023 Do you belong to any clubs o r organizations such as uatsdin groups, unions, fraternal or athletic groups, or [...] Date Recorded Patient Health Questionnaire-2 Score 0 03/27/2024 [facility] [place] of Occupat ional Health - Occupational Stress [...] place to sleep or slept in a halfway (including now)? No 10/26/2023 Comments Unknown Sex and Gender Information Value Date Recorded Sex Assigned at Not on file Legal Sex Female 7:03 PM EDT Gender Identity Not on file Sexual Orientation Not on file documented as of this encounter Functional Status * Over the past 2 weeks, how often have you been bothered by any of the following problems? Question Answer Date of Assessment Author Little interest or pleasure in doing things Not at all 03/27/2024 9:39 AM EDT Tony Butts M A Feeling down, depressed, or hopeless Not at all 03/27/2024 9:39 AM EDT Tony Butts M A Patient Health Questionnaire -2 Score 0 03/27/2024 9:39 AM EDT Tony uBtts M A documented as of this encounter Plan of Treatment Upcoming Encounters Date Type Department Care Team (Late st Contact Info) Description 05/19/2025 9:00 AM EDT Office Visit [facility] [address] [place] [address] Kaylene López, RIKKI [address] [place] [address] 06/17/2025 3:05 PM EDT Office Visit [facility] [address] [place] [address] Denise Lazo MD [address] [place] [address] 12/15/2026 9:00 AM EST Office Visit [facility] [address] [facility] [place] [address] Yuri Bowers PA [address] [place] [address] documented as of this encounter Procedures Procedure Name Priority Date/Time Associated Diagnosis Comments XR CHEST 2V 03/27/2024 4:02 PM EDT documented in this encounter Results * XR CHEST 2V (03/27/2024 4:02 PM EDT) Anatomical Region Laterality Modality Other 03/27/2024 4:02 PM EDT Narrative 03/27/2024 4:05 PM EDT The [address] [address] XRay Report Signed Patient: DIANA CHAMPION MR#: [id number] : 1955 Acct:[id number] Age/Sex: 68 / F ADM Date: 03/27/24 Loc: RAD Attending Dr: Shaikh Lev Velasquez Ordering Physician: Shaikh Eva Ohara Date of Service: 03/27/24 Procedure(s): XR chest 2V Accession Number(s): [id number] cc: Shaikh Eva Ohara [address] [address] Patient Name: DIANA CHAMPION MRN: [id number] date: 1955 Sex: F Assigned Patient Location: RAD Current Patient Location: RAD Accession/Order Number: [id number] Exam Date: 03/27/2024 14:40 Report Date: 03/27/2024 16:02 At the request of: SHAIKH LEV Procedure: XR chest 2V EXAMINATION: XR chest 2V HISTORY: Severe Asthma With Acute Exacerbation J45.51 COMPARISON: 10/25/2023 TECHNIQUE: PA and lateral FINDINGS: LUNGS: 4.7 cm focal opacity identified in the right midlung. Minimal bibasilar infiltrates. VASCULATURE: No increased pulmonary vasculature. PLEURA: No pneumothorax, effusion, or pleural thickening. CARDIAC: No cardiomegaly or cardiac silhouette abnormality. MEDIASTINUM: No visible mass or adenopathy. BONES: No fracture or visible bone lesion. OTHER: Call results initiated through operations. XR/XR chest 2V IMPRESSION: Focal density in the right midlung. Pneumonia is favored. Follow-up after resolution of symptoms/treatment recommended to document resolution Electronically authenticated by: BRITTANY VANESSA Date: 03/27/2024 16:02 Dictated By: Brittany Vanessa M.D. Signed By: 03/27/24 1605 DD/ 1602 TD/TT: Lithographing Machine Operator: Procedure Note Radiology, Radiologist, - 03/27/2024 [place] [address] XRay Report Signed Patient: DIANA CHAMPION AMR#: [id number] : 1955cct:[id number] Age/Sex: 68 / FADM Date: 03/27/24 Loc: RAD Attending Dr: Shaikh Lev Velasquez Ordering Physician: Shaikh Eva Ohara Date of Service: 03/27/24 Procedure(s): XR chest 2V Accession Number(s): [id number] cc: Shaikh Eva Ohara The [address] [address] Patient Name: DIANA CHAMPION MRN: [id number] date: 1955 Sex: F Assigned Patient Location: RAD Current Patient Location: RAD Accession/Order Number: [id number] Exam Date: 03/27/2024 14:40 Report Date: 03/27/2024 16:02 At the request of: SHAIKH LEV Procedure: XR chest 2V EXAMINATION: XR chest 2V HISTORY: Severe Asthma With Acute Exacerbation J45.51 COMPARISON: 10/25/2023 TECHNIQUE: PA and lateral FINDINGS: LUNGS: 4.7 cm focal opacity identified in the right midlung. Minimalbibasilar infiltrates. VASCULATURE: No increased pulmonary vasculature. PLEURA: No pneumothorax, effusion, or pleural thickening. CARDIAC: No cardiomegaly or cardiac silhouette abnormality. MEDIASTINUM: No visible mass or adenopathy. BONES: No fracture or visible bone lesion. OTHER: Call results initiated through operations. XR/XR chest 2V IMPRESSION: Focal density in the right midlung. Pneumonia is favored. Follow-up after resolution of symptoms/treatment recommended to document resolution Electronically authenticated by: BRITTANY VANESSA Date: 03/27/2024 16:02 Dictated By: Brittany Vanessa M.D. Signed By:03/27/24 1605 DD/ 1602 TD/TT: Lithographing Machine Operator: us Shaikh Lev [facility] Final Result documented in this encounter Visit Diagnoses Not on filedocumented in this encounter Additional Health Concerns Assessment Noted Time PHQ-9 Depression Total Score: 7 11/02/20 23 3:03 PM EST documented as of this encounter Care Teams Rn Float Relationship Specialty Start Date End Date Shaikh Ohara MD [address] [place] [phone] PCP - General Internal Medicine 12/28/23 06/09/24 Tapan Barboza MD [address] [place] [phone] PCP - General Family Medicine 06/10/24 Ariella Mathis DO [address] [place] [address] Referring Physician Neurology 01/02/24 Mae Reese NP [address] [place] [address] Nurse Practitioner Family Medicine 06/10/24 documented as of this encounter
--- OUTSIDE RECORDS SUMMARY | 2025-04-30 12:42 | XMS_ITS | Encounter Summary ---
Author Organization [facility] Address [address] [facility] [place] [address] Care Team Providers Care Forensics Analyst Name Role Phone Shaikh BONNY Ohara Primary Care Provider [phone] Ariella Mathis DO Unavailable [phone] Tapan Barboza MD Primary Care Provider [phone] Mae Reese COMPRESSOR SERVICE TECHNICIAN Unavailable [phone] Encounter Details Date Type Department Care Team [...] How often do you attend chur or baptism services? More than 4 times per year 10/26/2023 Do you belong to any clubs o r organizations such as episcopal groups, unions, fraternal or athletic groups, or [...] Recorded Patient Health Questionnaire-2 Score 0 03/27/2024 [facility] - Occupational Stress [...] Score 0 03/27/2024 9:39 AM EDT Tony Butts M A documented as of this encounter Plan of Treatment Upcoming Encounters Date Type Department Care Team (Late st Contact Info) Description 05/19/2025 9:00 AM EDT Office Visit [facility] [address] [place] [address] Kaylene López NP [address] [place] [address] 06/17/2025 3:05 PM EDT Office Visit [facility] [address] [place] [address] Denise Lazo MD [address] [place], [place] [id number] 12/15/2026 9:00 AM EST Office Visit [facility] [address] [place] [address] Yuri Bowers PA [address] [address] [place] [address] documented as of this encounter Procedures Procedure Name Priority Date/Time Associated Diagnosis Comments XR THORACIC SPINE 3V 03/27/2024 7:50 AM EDT documented in this encounter Results * XR THORACIC SPINE 3V (03/27/2024 7:50 AM EDT) Anatomical Region Laterality Modality Other 03/27/2024 7:50 AM EDT Narrative 03/27/2024 7:53 AM EDT The [address] [address] XRay Report Signed Patient: DIANA CHAMPION MR#: [id number] : 1955 Acct:[id number] Age/Sex: 68 / F ADM Date: 03/26/24 Loc: RAD Attending Dr: Jose Mahajan NP Ordering Physician: Jose Mahajan NP Date of Service: 03/26/24 Procedure(s): XR thoracic spine 3V Accession Number(s): [id number] cc: Shaikh Eva Ohara; Jose Mahajan NP [address] [address] Patient Name: DIANA CHAMPION MRN: [id number] date: 1955 Sex: F Assigned Patient Location: RAD Current Patient Location: Accession/Order Number: [id number] Exam Date: 03/26/2024 15:13 Report Date: 03/27/2024 07:50 At the request of: JOSE MAHAJAN Procedure: XR thoracic spine 3V EXAMINATION: XR thoracic spine 3V HISTORY: Thoracic spondulosis COMPARISON: No relevant comparison available. FINDINGS: BONES: Moderate widespread spondylosis and facet osteoarthritis. No visible acute bony abnormality. DISC SPACES: Mild widespread disc height narrowing. PARASPINOUS: Negative. No paraspinous abnormality is seen. OTHER: Negative. XR/XR thoracic spine 3V IMPRESSION: Moderate degenerative spondylosis Electronically authenticated by: BRITTANY VANESSA Date: 03/27/2024 07:50 Dictated By: Brittany Vanessa M.D. Signed By: 03/27/24 0753 DD/ 0750 TD/TT: Fence Gate Assembler: Procedure Note Radiology, Radiologist, MD - 03/27/2024 [place] [address] XRay Report Signed Patient: DIANA CHAMPION AMR#: [id number] : 1955cct:[id number] Age/Sex: 68 / FADM Date: 03/26/24 Loc: [facility] Attending Dr: Jose Mahajan NP Ordering Physician: Jose Mahajan NP Date of Service: 03/26/24 Procedure(s): XR thoracic spine 3V Accession Number(s): [id number] cc: Shaikh Eva Ohara; Jose Mahajan NP The [place] [id number] Patient Name: DIANA CHAMPION MRN: [id number] date: 1955 Sex: F Assigned Patient Location: [facility] Current Patient Location: Accession/Order Number: [id number] Exam Date: 03/26/2024 15:13 Report Date: 03/27/2024 07:50 At the request of: JOSE MAHAJAN Procedure: XR thoracic spine 3V EXAMINATION: XR thoracic spine 3V HISTORY: Thoracic spondulosis COMPARISON: No relevant comparison available. FINDINGS: BONES: Moderate widespread spondylosis and facet osteoarthritis. Novisible acute bony abnormality. DISC SPACES: Mild widespread disc height narrowing. PARASPINOUS: Negative. No paraspinous abnormality is seen. OTHER: Negative. XR/XR thoracic spine 3V IMPRESSION: Moderate degenerative spondylosis Electronically authenticated by: BRITTANY VANESSA Date: 03/27/2024 07:50 Dictated By: Brittany Vanessa M.D. Signed By:03/27/24 0753 DD/ 0750 TD/TT: Fence Gate Assembler: us Generic External Data Provider [facility] Final Result documented in this encounter Visit Diagnoses Not on filedocumented in this encounter Additional Health Concerns Assessment Noted Time PHQ-9 Depression Total Score: 7 11/02/20 23 3:03 PM EST documented as of this encounter Care Teams Forensics Analyst Relationship Specialty Start Date End Date Shaikh Ohara MD [address] [place] [address] PCP - General Internal Medicine 12/28/23 06/09/24 Tapan Barboza MD [address] [place] [address] PCP - General Family Medicine 06/10/24 Ariella Mathis DO [address] [place] [address] Referring Physician Neurology 01/02/24 Mae Reese NP [address] [place] [address] Nurse Practitioner Family Medicine 06/10/24 documented as of this encounter
--- OUTSIDE RECORDS SUMMARY | 2025-04-30 12:42 | XMS_ITS | Encounter Summary ---
Author Organization [facility] Address [address] [place] [address] Care Team Providers Care Chair Trimmer Name Role Phone Shaikh BONNY Ohara Primary Care Provider Ariella Mathis DO Unavailable [phone] Tapan Barboza MD Primary Care Provider Mae Reese FRONTLOAD DRIVER Unavailable [phone] Encounter Details Date Type Department Care Team (Late st Contact Info) Description 04/12/2024 Orders Only [facility] [address] [place] [address] Shaikh Ohara MD [address] [place] [address] Social History Tobacco Use Types Packs/Day Years [...] do you attend [facility] or mormon services? More than 4 times per year 10/26/2023 Do you belong to any clubs o r organizations such as orthodox groups, unions, fraternal or athletic groups, or [...] Date Recorded Patient Health Questionnaire-2 Score 0 04/11/2024 [facility] - Occupational Stress [...] place to sleep or slept in a half-way (including now)? No 10/26/2023 Comments Unknown Sex [...] Visit [facility] [address] [place] [address] Kaylene López NP [address] [place] [address] 06/17/2025 3:05 PM EDT Office Visit [facility] [address] [place] [address] Denise Lazo MD [address] [place] [address] 12/15/2026 9:00 AM EST Office Visit [facility] [address] [place] [address] Yuri Bowers PA [address] [facility] [address] [place] [address] documented as of this encounter Procedures Procedure Name Priority Date/Time Associated Diagnosis Comments CT CHEST WO IV CONTRAST Routine 04/12/2024 9:44 AM EDT documented in this encounter Results * CT chest wo IV contrast (04/12/2024 9:44 AM EDT) Anatomical Region Laterality Modality Body, Chest Computed Tomogra phy Shaikh Lev DRAPER IMG CT PROCEDURES Final Result documented in this encounter Visit Diagnoses Not on filedocumented in this encounter Additional Health Concerns Assessment Noted Time PHQ-9 Depression Total Score: 7 11/02/20 23 3:03 PM EST documented as of this encounter Care Teams Chair Trimmer Relationship Specialty Start Date End Date Shaikh Ohara MD [address] [place] [phone] PCP - General Internal Medicine 12/28/23 06/09/24 Tapan Barboza MD [address] [place] [address] PCP - General Family Medicine 06/10/24 Ariella Mathis DO [address] [place] [address] Referring Physician Neurology 01/02/24 Mae Reese NP [address] [place] [address] Nurse Practitioner Family Medicine 06/10/24 documented as of this encounter
--- OUTSIDE RECORDS SUMMARY | 2025-04-30 12:42 | XMS_ITS | Encounter Summary ---
Author Organization [facility] Address [address] [place] [address] Care Team Providers Care Fleet Administrative Assistant Name Role Phone Shaikh BONNY Ohara Primary Care Provider [phone] Ariella Mathis DO Unavailable [phone] Tapan Barboza MD Primary Care Provider Mae Reese REINFORCING BAR SETTER Unavailable [phone] Encounter Details Date Type Department Care Team (Late st Contact Info) Description 04/03/2024 Clinisync Result Encounter [facility] External Department Unsolicited Shaikh Ohara MD [address] [place] [phone] Social History Tobacco Use Types Packs/Day Years [...] week 10/26/2023 How often do you attend [facility] or lutheran services? More than 4 times per year 10/26/2023 Do you belong to any clubs o r organizations such as muslim groups, unions, fraternal or athletic groups, or [...] Date Recorded Patient Health Questionnaire-2 Score 0 04/03/2024 [facility] - Occupational Stress [...] pleasure in doing things Not at all 04/03/2024 8:44 AM EDT Tony Butts M A Feeling down, depressed, or hopeless Not at all 04/03/2024 8:44 AM EDT Tony Butts M A Patient Health Questionnaire -2 Score 0 04/03/2024 8:44 AM EDT oTny Butts M A documented as of this encounter Plan of Treatment Upcoming Encounters Date Type Department Care Team (Late st Contact Info) Description 05/19/2025 9:00 AM EDT Office Visit [facility] [address] [place] [address] Kaylene López, REINFORCING BAR SETTER [address] [place] [address] 06/17/2025 3:05 PM EDT Office Visit [facility] [address] [place] [address] Denise Lazo MD [address] [place] [address] 12/15/2026 9:00 AM EST Office Visit [facility] [address] [place] [place] [address] Yuri Bowers PA [address] [place] [address] documented as of this encounter Procedures Procedure Name Priority Date/Time Associated Diagnosis Comments XR CHEST 2V 04/03/2024 4:27 PM EDT documented in this encounter Results * XR CHEST 2V (04/03/2024 4:27 PM EDT) Anatomical Region Laterality Modality Other 04/03/2024 4:27 PM EDT Narrative 04/03/2024 4:30 [place] [address] XRay Report Signed Patient: DIANA CHAMPION MR#: [id number] : 1955 Acct:[id number] Age/Sex: 68 / F ADM Date: 04/03/24 Loc: RAD Attending Dr: Shaikh Lev Velasquez Ordering Physician: Shaikh Eva Ohara Date of Service: 04/03/24 Procedure(s): XR chest 2V Accession Number(s): [id number] cc: Shaikh Eva Ohara The [place] [address] Patient Name: DIANA CHAMPION MRN: [id number] date: 1955 Sex: F Assigned Patient Location: [facility] Current Patient Location: [facility] Accession/Order Number: [id number] Exam Date: 04/03/2024 15:40 Report Date: 04/03/2024 16:27 At the request of: SHAIKH LEV Procedure: XR chest 2V EXAMINATION: XR chest 2V HISTORY: Pneumonia of right middle lobe due to infectious organism COMPARISON: TECHNIQUE: PA and lateral FINDINGS: LUNGS: Small amount of right mid lung infiltrates, significantly improved. The left lung is clear VASCULATURE: No increased pulmonary vasculature. PLEURA: Blunting of the right lateral costophrenic angle suggests a small pleural effusion CARDIAC: No cardiomegaly or cardiac silhouette abnormality. MEDIASTINUM: No visible mass or adenopathy. BONES: No fracture or visible bone lesion. OTHER: Negative. XR/XR chest 2V IMPRESSION: Interval improvement of right lung infiltrate Electronically authenticated by: BRITTANY VANESSA Date: 04/03/2024 16:27 Dictated By: Brittany Vanessa M.D. Signed By: 04/03/24 1630 DD/ 1627 TD/TT: Brick Paving Checker: Procedure Note Radiology, Radiologist, MD - 04/03/2024 [place] [address] XRay Report Signed Patient: DIANA CHAMPION AMR#: [id number] : 1955cct:[id number] Age/Sex: 68 / FADM Date: 04/03/24 Loc: RAD Attending Dr: Shaikh Lev Velasquez Ordering Physician: Shaikh Eva Ohara Date of Service: 04/03/24 Procedure(s): XR chest 2V Accession Number(s): [id number] cc: Shaikh Eva Ohara The [place] [id number] Patient Name: DIANA CHAMPION MRN: [id number] date: 1955 Sex: F Assigned Patient Location: RAD Current Patient Location: RAD Accession/Order Number: [id number] Exam Date: 04/03/2024 15:40 Report Date: 04/03/2024 16:27 At the request of: SHAIKH LEV Procedure: XR chest 2V EXAMINATION: XR chest 2V HISTORY: Pneumonia of right middle lobe due to infectious organism COMPARISON: TECHNIQUE: PA and lateral FINDINGS: LUNGS: Small amount of right mid lung infiltrates, significantly improved.The left lung is clear VASCULATURE: No increased pulmonary vasculature. PLEURA: Blunting of the right lateral costophrenic angle suggests a small pleural effusion CARDIAC: No cardiomegaly or cardiac silhouette abnormality. MEDIASTINUM: No visible mass or adenopathy. BONES: No fracture or visible bone lesion. OTHER: Negative. XR/XR chest 2V IMPRESSION: Interval improvement of right lung infiltrate Electronically authenticated by: BRITTANY VANESSA Date: 04/03/2024 16:27 Dictated By: Brittany Vanessa M.D. Signed By:04/03/24 1630 DD/ 1627 TD/TT: Brick Paving Checker: Shaikh Lev DRAPER [facility] Final Result documented in this encounter Visit Diagnoses Not on filedocumented in this encounter Additional Health Concerns Assessment Noted Time PHQ-9 Depression Total Score: 7 11/02/20 23 3:03 PM EST documented as of this encounter Care Teams Fleet Administrative Assistant Relationship Specialty Start Date End Date Shaikh Ohara MD [address] [place] [address] PCP - General Internal Medicine 12/28/23 06/09/24 Tapan Barboza MD [address] [place] [address] PCP - General Family Medicine 06/10/24 Ariella Mathis DO [address] [place] [address] Referring Physician Neurology 01/02/24 Mae Reese NP [address] [place] [address] Nurse Practitioner Family Medicine 06/10/24 documented as of this encounter
--- NOTE | 2025-04-30 12:59 | PM.CN ---
Consult Note: HPI Data of Consult Patient: known to practice within the last 3 years Requesting Physician: Violet Saucedo NP Primary Care Provider: Kaylene López NP Consult Narrative Reason for consult: right hip pain Narrative: Diana Champion a pleasant 69 year old female presents for evaluation of right hip pain, hx of severe OA. Pt has met with orthopedics in the past in consideration of hip replacement but has been deemed high risk due to COPD/O2 and frequent infections. Pt recently hospitalized with COPD exacerbation and pneumonia, on 3l NC continuously. pt has been utilizing tylenol, lyrica, baclofen, wellbutrin with mild relief. has failed > 6 weeks of HEP, heat, ice, tylenol, avoid NSAIDs with CKD. pain today 8/10 sharp burning in right hip and groin. notes incresaing pain with standing, walking, bending, stairs, acitivty, sleep, and weather like rain. denies recent fall/injury. cc:: CC: Violet Saucedo NP Review of Systems ROS Status of ROS 10 or more systems reviewed and unremarkable except as noted in history and below [facility] Medical History (Updated 04/30/25 @ 13:02 by Violet Saucedo NP) Diet-controlled diabetes mellitus ?E11.9 - Type 2 diabetes mellitus without complications (ICD-10) Tracheobronchomalacia ?J39.8 - Other specified diseases of upper respiratory tract (ICD-10) 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 - Critical illness myopathy (ICD-10) Upper respiratory infection ?J06.9 - Acute upper respiratory infection, unspecified (ICD-10) Hypoxemia ?R09.02 - Hypoxemia (ICD-10) Acute and chronic respiratory failure ?J96.20 - Acute and chronic respiratory failure, unspecified whether with hypoxia or hypercapnia (ICD-10) Weakness ?R53.1 - Weakness (ICD-10) RLL pneumonia ?J18.9 - Pneumonia, unspecified organism (ICD-10) Acute viral syndrome ?B34.9 - Viral infection, unspecified (ICD-10) Asthma exacerbation in COPD ?J44.1 - Chronic obstructive pulmonary disease with (acute) exacerbation (ICD-10) Hypomagnesemia ?E83.42 - Hypomagnesemia (ICD-10) Acute hypokalemia ?E87.6 - Hypokalemia (ICD-10) Pneumonia ?J18.9 - Pneumonia, unspecified organism (ICD-10) Melanoma ?C43.9 - Malignant melanoma of skin, unspecified (ICD-10) Mediastinal lymphadenopathy ?R59.0 - Localized enlarged lymph nodes (ICD-10) Restrictive lung disease ?J98.4 - Other disorders of lung (ICD-10) CAD (coronary artery disease) ?I25.10 - Atherosclerotic heart disease of [place] coronary artery without angina pectoris (ICD-10) Chronic heart failure with preserved ejection fraction (HFpEF) ?I50.32 - Chronic diastolic (congestive) heart failure (ICD-10) Acute exacerbation of COPD with asthma ?J44.1 - Chronic obstructive pulmonary disease with (acute) exacerbation (ICD-10) ?J45.901 - Unspecified asthma with (acute) exacerbation (ICD-10) Lumbar radiculopathy ?M54.16 - Radiculopathy, lumbar region (ICD-10) Encounter for long-term opiate analgesic use ?Z79.891 - intermodal customer service (current) use of opiate analgesic (ICD-10) Failed back syndrome ?M96.1 - Postlaminectomy syndrome, not elsewhere classified (ICD-10) Acute exacerbation of chronic low back pain ?M54.50 - Low back pain, unspecified (ICD-10) ?G89.29 - Other chronic pain (ICD-10) Thoracic spondylosis ?M47.814 - Spondylosis without myelopathy or radiculopathy, thoracic region (ICD-10) Hypoxia ?R09.02 - Hypoxemia (ICD-10) URI (upper respiratory infection) ?J06.9 - Acute upper respiratory infection, unspecified (ICD-10) Orthostasis ?I95.1 - Orthostatic hypotension (ICD-10) Community acquired pneumonia ?J18.9 - Pneumonia, unspecified organism (ICD-10) Severe malnutrition ?E43 - Unspecified severe protein-calorie malnutrition (ICD-10) Acute exacerbation of chronic obstructive pulmonary disease (COPD) ?J44.1 - Chronic obstructive pulmonary disease with (acute) exacerbation (ICD-10) Severe persistent asthma with exacerbation ?J45.51 - Severe persistent asthma with (acute) exacerbation (ICD-10) Morbid obesity ?E66.01 - Morbid (severe) obesity due to excess calories (ICD-10) Other pulmonary collapse ?J98.19 - Other pulmonary collapse (ICD-10) Chronic respiratory failure with hypoxia ?J96.11 - Chronic respiratory failure with hypoxia (ICD-10) Bronchitis ?J40 - Bronchitis, not specified as acute or chronic (ICD-10) Acute exacerbation of chronic obstructive pulmonary disease ?J44.1 - Chronic obstructive pulmonary disease with (acute) exacerbation (ICD-10) Myofascial pain ?M79.18 - Myalgia, other site (ICD-10) Greater trochanteric bursitis ?M70.60 - Trochanteric bursitis, unspecified hip (ICD-10) Osteoarthritis of right hip ?M16.11 - Unilateral primary osteoarthritis, right hip (ICD-10) Lumbar spondylosis ?M47.816 - Spondylosis without myelopathy or radiculopathy, lumbar region (ICD-10) Lumbar postlaminectomy syndrome ?M96.1 - Postlaminectomy syndrome, not elsewhere classified (ICD-10) Lumbar stenosis with neurogenic claudication ?M48.062 - Spinal stenosis, lumbar region with neurogenic claudication (ICD-10) Depression ?F32.A - Depression, unspecified (ICD-10) Chronic low back pain ?M54.50 - Low back pain, unspecified (ICD-10) ?G89.29 - Other chronic pain (ICD-10) Hypoxia ?R09.02 - Hypoxemia (ICD-10) Heart murmur ?R01.1 - Cardiac murmur, unspecified (ICD-10) Chronic obstructive pulmonary disease ?J44.9 - Chronic obstructive pulmonary disease, unspecified (ICD-10) Asthma ?J45.909 - Unspecified asthma, uncomplicated (ICD-10) Surgical History H/O cataract removal with insertion of prosthetic lens ?Z98.49 - Cataract extraction status, unspecified eye (ICD-10) ?Z96.1 - Presence of intraocular lens (ICD-10) Status post hip surgery ?Z98.890 - Other specified postprocedural states (ICD-10) H/O foot surgery ?Z98.890 - Other specified postprocedural states (ICD-10) H/O tubal ligation ?Z98.51 - Tubal ligation status (ICD-10) History of lumbar fusion ?Z98.1 - Arthrodesis status (ICD-10) Family History Mother Family history of CHF (congestive heart failure) Family history of hypertension Father Family history of hypertension Family history of myocardial infarction Social History (Updated 01/08/25 @ 17:25 by Yuni Loza RN) Within the past year, how often did you have a drink containing alcohol: never Score interpretation: A score less than 3 is consistent with normal alcohol consumption. Smoking status: Never smoker Second hand tobacco smoke exposure: No Non-prescribed substance use: denies use Previous occupational history: retired Highest level of school completed/degree received: Associate degree: occupational, technical, vocational program Are you now , , , , never or living with a partner: In a typical week, how many times do you talk on the telephone with family, friends, or neighbors: 3 or more times per week How often do you get together with friends or relatives: 3 or more times per week How often do you attend lutheran or jewish services: 4 or more times per year Do you belong to any clubs or organizations such as lutheran groups unions, [employer] or athletic groups, or school groups: no Total score: 2 Score interpretation: A score of greater than or equal to 2 indicates the lowest level of social isolation. Little interest or pleasure in doing things: not at all Feeling down, depressed, or hopeless: not at all Feel stressed/tense/nervous/anxious/difficulty sleeping: not at all Do you think of yourself as: straight/heterosexual Gender Identity: female Meds Home Medications and Allergies Home Medications ?Medication ?Instructions ?Recorded ?Confirmed ?Type magnesium oxide 400 mg (241.3 mg 400 mg PO DAILY 04/10/23 03/10/25 History magnesium) tablet omeprazole 20 mg capsule,delayed 20 mg PO BID 04/10/23 03/10/25 History release montelukast 10 mg tablet 10 mg PO DAILY 09/14/23 03/10/25 History pregabalin 75 mg capsule 75 mg PO BID 11/25/23 03/10/25 History solifenacin 10 mg tablet 10 mg PO QDAY 11/25/23 03/10/25 History trazodone 100 mg tablet 100 mg PO .qhs 11/25/23 03/10/25 History baclofen 10 mg tablet 10 mg PO Q8H 02/03/24 03/10/25 History albuterol sulfate 2.5 mg/3 mL 2.5 mg inhalation QID PRN 06/06/24 03/10/25 History (0.083 %) solution for nebulization shortness of breath or wheezing sodium chloride 0.9 % for 2.5 ml inhalation Q8H PRN 06/28/24 03/10/25 History nebulization shortness of breath or wheezing latanoprost 0.005 % eye drops 1 drp ophthalmic (eye) .HS 08/09/24 03/10/25 History budesonide 160 mcg-glycopyr 9 2 inh inhalation Q12H 03/10/25 03/10/25 History mcg-formot 4.8 mcg/actuation HFA inhaler (Breztri Aerosphere) nystatin 100,000 unit/gram topical 1 applic topical BID 03/10/25 03/10/25 History cream paroxetine HCl 40 mg tablet 40 mg PO DAILY 03/10/25 03/10/25 History pramipexole 0.25 mg tablet 0.25 mg PO .qhs 03/11/25 03/11/25 History amoxicillin 500 mg-potassium 1 tab PO BID 7 days #14 tabs 03/16/25 Rx clavulanate 125 mg tablet (Augmentin) furosemide 40 mg tablet (Lasix) 40 mg PO DAILY 7 days #7 tabs 03/16/25 Rx guaifenesin 600 mg tablet, 600 mg PO Q12H 7 days #14 tabs 03/16/25 Rx extended release 12 hr (Mucus Relief ER) insulin glargine 100 unit/mL (3 15 unit (0.15 mL) subcut QD #15 mL 03/16/25 Rx mL) subcutaneous pen (Lantus Solostar U-100 Insulin) ipratropium 0.5 mg-albuterol 3 mg 3 ml inhalation Q4H PRN Shortness 03/16/25 Rx (2.5 mg base)/3 mL nebulization Of Breath Or Wheezing 30 days #180 soln mL levofloxacin 500 mg tablet 500 mg PO DAILY 5 days #5 tabs 03/16/25 Rx prednisone 10 mg tablet 10 mg PO .as directed #49 tabs 03/16/25 Rx Allergies Allergy/AdvReac Type Severity Reaction Status Date / Time No Known Drug Allergies Allergy Verified 01/02/25 15:47 Exam Constitutional Documenting provider has reviewed patient's vital signs: yes Common normals: no apparent distress, oriented x3, healthy appearing, alert and well nourished General appearance: cooperative Nutritional appearance: overweight HENMT Common normals: normocephalic, hearing grossly normal bilaterally and moist oral mucous membranes Head and scalp: normocephalic Eye Common normals: PERRL Pupil: PERRL Neck & C-Spine Common normals: full ROM General: normal visual inspection Chest Common normals: inspection of chest normal Respiratory Common normals: normal respiratory effort, no retractions and no use of accessory muscles Extremity Right lower extremity: hip joint Other: moderate pain with internal and external log roll right sij positive jamil(patricks), gaenslens, thigh thrust, compression test Neuro Common normals: oriented x3 Sensorium/orientation: alert Psych Common normals: mental status grossly normal, thought process normal, cooperative, affect normal, speech normal and activity/motor behavior normal Speech: normal speech Thought process: normal thought process Results Additional Findings Additional findings: If on a controlled substance or opioids, I have checked an [place] report on this patient and there are no aberrancies noted in the prescribing history.??If on a controlled substance or opioid a drug screen was completed and reviewed within the last year, and if there has not been a drug screen completed we ordered one today to monitor higher risk, state monitored pain medication use. As part of providing excellent, safe, comprehensive care, the following was completed at our patient's visit: 1. A medication reconciliation and review to ensure accurate knowledge of current/active medications, including asking our patients to inform us about any [id number] medications or herbal remedies/nutritional supplements/alternative remedies. 2. A review to specifically ensure our patients have had annual screening for screening for depression, screening for tobacco use, and screening for unhealthy alcohol use. For concerning screenings had a discussion with the patient, provided patient education, and recommended follow-up with primary care provider when appropriate. If patient noted with a risk of falling, they received education on strength, gait, and balance training to prevent future risk of falling. Portions of this note may have been carried over from the previous visit and updated as appropriate. Please note this office utilizes paper charting in addition to the electronic medical record. A list of current medications, vitals, and PMH is available there as the clinical staff outside of myself do not have access to [employer] charting during the clinic day operations. As part of providing quality comprehensive care the current medications, vitals, and PMH were reviewed in the paper chart. Assessment and Plan Assessment and Plan (1) Osteoarthritis of right hip: Assessment and Plan: The patient has had over 3 months of moderate to severe right hip pain with functional impairment and inadequate response to conservative care including NSAIDS (unless there are contraindication such as concurrent blood thinners), multiple oral or topical pain medications, and home exercise program/physical therapy.? Patient has completed >6 weeks of guided home exercise program and/or formal physical therapy program without relief of their symptoms.? I have reviewed the imaging of the right hip and no red flags were identified.? The Oswestry Disability Index was completed, and the patient scored a 38%.? The patient noted the following:?? moderate to severe pain impacting ADLs, sitting, standing, walking, sleeping, social life, travel We discussed the risks and benefits of the procedure with the patient, and we are NOT planning on using sedation as outlined in the guidelines from Medicare unless there is a documented reason that sedation would be strongly recommended.?? ?The procedure will be completed with fluoroscopic guidance.? Qualifiers: Osteoarthritis type: primary Qualified Code(s): M16.11 - Unilateral primary osteoarthritis, right hip (2) Sacroiliitis: Plan update right hip xray, known severe OA from prior imaging. proceed with right hip injection under fluoroscopy cannot undergo hip replacement at this time, continues to f/u with pulmonology for further care continue current medications continue HEP as tolerated f/u 2 weeks after right hip injection
== END 2025-04-30 12:38 | disposition home or self-care (01) ==
PROVIDERS: PCP Nurse Practitioner; Visit Provider Nurse Practitioner
DX: M25.551 Pain in right hip (principal); M16.11 Unilateral primary osteoarthritis, right hip; M46.1 Sacroiliitis, not elsewhere classified
CPT/HCPCS: 73502; G0463

== ENCOUNTER 2025-04-30 13:14 | Outpatient (OUT) | payer MEDICARE, MEDICAID, SELFPAY ==
--- NOTE | 2025-04-30 13:24 | XR_ITS ---
The [address] [address] Patient Name: JHONATAN MONTOYA MRN: [id number] date: 1955 Sex: F Assigned Patient Location: [facility] Current Patient Location: [facility] Accession/Order Number: [id number] Exam Date: 04/30/2025 13:45 Report Date: 04/30/2025 13:46 At the request of: JOSE MAHAJAN NP Procedure: XR hip RT min 2V RIGHT HIP - 2 views: CLINICAL HISTORY: Right Hip Osteoarthritis COMPARISON: Right hip series 03/24/2023 FINDINGS: Severe degenerative changes of the right hip without acute bony process. XR/XR hip RT min 2V IMPRESSION: SEVERE DEGENERATIVE CHANGES OF THE RIGHT HIP WITHOUT ACUTE BONY PROCESS.. Impression dictated by: Marcos Medina Jr. DJusticeOJustice 04/30/2025 1:46 PM Dictation Location: [place] [address] Electronically authenticated by: [id number] Date: 04/30/2025 13:46
== END 2025-04-30 13:15 | disposition home or self-care (01) ==
LOC: RAD 13:16
PROVIDERS: PCP Nurse Practitioner; Visit Provider Nurse Practitioner
DX: M25.551 Pain in right hip (principal)
CPT/HCPCS: 73502

== ENCOUNTER 2025-05-12 09:21 | Day surgery (SDC) | payer MEDICARE, MEDICAID, SELFPAY ==
[2025-05-12 09:55] VITALS: BP 151/82; PULSE 69; TEMP 36.2; O2SAT 93
[2025-05-12 10:06] VITALS: BP 156/68; PULSE 78; O2SAT 94
[2025-05-12 10:08] VITALS: BP 154/70; PULSE 75; O2SAT 94
[2025-05-12] MEDS: BUPIVACAINE HCL 0.25% PF 25 MG/10 ML VIAL 4 ML INJ (10:08)
[2025-05-12] MEDS: METHYLPREDNISOLONE ACETATE 40 MG/ML VIAL INJ (10:08)
[2025-05-12] MEDS: IOHEXOL 240 MG/ML - 10 ML VIAL 12 MG INJ (10:08)
[2025-05-12] MEDS: LIDOCAINE HCL 2% 400 MG/20 ML MDV INJ (10:08)
--- NOTE | 2025-05-12 10:12 | W.PM.PROCNOT ---
Date of procedure: 05/12/25 Pre-op diagnosis: Pain due to right hip osteoarthritis Post-op diagnosis: same as pre-op Procedure: Procedure: Right hip injection Medications: Bupivacaine 0.25% 3cc, depomedrol 40mg I explained the details of the procedure to the patient including the risks, benefits and alternatives. We had an informed discussion and the patient verbalized understanding and signed the consent form. All questions were answered appropriately.? A time out was performed.? After obtaining a comfortable supine position, the skin overlying the hip, subtrochanteric region, and joint space were prepped with alcohol. A sterile syringe containing the above medication was attached to a 25 guage, 3.5 inch spinal needle under strict aseptic technique. X ray was used to identify the joint space and the femoral neck on the right side.? The needle was than advanced through the subcutaneous tissue after local injection of 1% lidocaine.? The contents of the syringe were gently injected without any resistance into the joint space after contrast (isovue) outlined the appropriate area. The needle was removed and pressure was applied to the injection site to decrease the incidence of ecchymosis and hematoma formation.? A sterile bandage was applied. Post procedural instructions were given to the patient. Anesthesia: Local Surgeon: Jayshree Vargas Pathology: none sent Condition: stable Disposition: no change
== END 2025-05-12 10:17 | disposition home or self-care (01) ==
LOC: SURGOUT 09:22
PROVIDERS: PCP Nurse Practitioner; Visit Provider Anesthesiology
DX: M16.11 Unilateral primary osteoarthritis, right hip (principal); M25.551 Pain in right hip; E11.8 Type 2 diabetes mellitus with unspecified complications; Z79.85 Long-term (current) use of injectable non-insulin antidiabetic drugs
CPT/HCPCS: 20610; 77002; J0665; J1010; Q9966

== ENCOUNTER 2025-05-22 08:37 | Outpatient (OUT) | payer MEDICARE, MEDICAID, SELFPAY ==
--- NOTE | 2025-05-22 08:49 | PM.CN ---
Consult Note: HPI Data of Consult Patient: known to practice within the last 3 years Consult date: 05/22/25 Requesting Physician: Violet Saucedo NP Primary Care Provider: Kaylene López NP Consult Narrative Reason for consult: right hip pain Narrative: Diana Champion a pleasant 69 year old female presents for evaluation of right hip pain, hx of severe OA. Pt has met with orthopedics in the past in consideration of hip replacement but has been deemed high risk due to COPD/O2 and frequent infections. pt has been utilizing tylenol, lyrica, baclofen, wellbutrin with mild relief. has failed > 6 weeks of HEP, heat, ice, tylenol, avoid NSAIDs with CKD. recently underwent right hip injection for pain secondary to OA with moderate ongoing relief, pain 2/10 increasing to 5/10. previously severe pain up to 10/10. cc:: CC: Violet Saucedo NP Review of Systems ROS Status of ROS 10 or more systems reviewed and unremarkable except as noted in history and below [facility] Medical History (Updated 04/30/25 @ 13:02 by Violet Saucedo NP) Diet-controlled diabetes mellitus �E11.9 - Type 2 diabetes mellitus without complications (ICD-10) Tracheobronchomalacia �J39.8 - Other specified diseases of upper respiratory tract (ICD-10) Critical illness myopathy �G72.81 - Critical illness myopathy (ICD-10) Upper respiratory infection �J06.9 - Acute upper respiratory infection, unspecified (ICD-10) Hypoxemia �R09.02 - Hypoxemia (ICD-10) Acute and chronic respiratory failure �J96.20 - Acute and chronic respiratory failure, unspecified whether with hypoxia or hypercapnia (ICD-10) Weakness �R53.1 - Weakness (ICD-10) RLL pneumonia �J18.9 - Pneumonia, unspecified organism (ICD-10) Acute viral syndrome �B34.9 - Viral infection, unspecified (ICD-10) Asthma exacerbation in COPD �J44.1 - Chronic obstructive pulmonary disease with (acute) exacerbation (ICD-10) Hypomagnesemia �E83.42 - Hypomagnesemia (ICD-10) Acute hypokalemia �E87.6 - Hypokalemia (ICD-10) Pneumonia �J18.9 - Pneumonia, unspecified organism (ICD-10) Melanoma �C43.9 - Malignant melanoma of skin, unspecified (ICD-10) Mediastinal lymphadenopathy �R59.0 - Localized enlarged lymph nodes (ICD-10) Restrictive lung disease �J98.4 - Other disorders of lung (ICD-10) CAD (coronary artery disease) �I25.10 - Atherosclerotic heart disease of [place] coronary artery without angina pectoris (ICD-10) Chronic heart failure with preserved ejection fraction (HFpEF) �I50.32 - Chronic diastolic (congestive) heart failure (ICD-10) Acute exacerbation of COPD with asthma �J44.1 - Chronic obstructive pulmonary disease with (acute) exacerbation (ICD-10) �J45.901 - Unspecified asthma with (acute) exacerbation (ICD-10) Lumbar radiculopathy �M54.16 - Radiculopathy, lumbar region (ICD-10) Encounter for long-term opiate analgesic use �Z79.891 - retirement (current) use of opiate analgesic (ICD-10) Failed back syndrome �M96.1 - Postlaminectomy syndrome, not elsewhere classified (ICD-10) Acute exacerbation of chronic low back pain �M54.50 - Low back pain, unspecified (ICD-10) �G89.29 - Other chronic pain (ICD-10) Thoracic spondylosis �M47.814 - Spondylosis without myelopathy or radiculopathy, thoracic region (ICD-10) Hypoxia �R09.02 - Hypoxemia (ICD-10) URI (upper respiratory infection) �J06.9 - Acute upper respiratory infection, unspecified (ICD-10) Orthostasis �I95.1 - Orthostatic hypotension (ICD-10) Community acquired pneumonia �J18.9 - Pneumonia, unspecified organism (ICD-10) Severe malnutrition �E43 - Unspecified severe protein-calorie malnutrition (ICD-10) Acute exacerbation of chronic obstructive pulmonary disease (COPD) �J44.1 - Chronic obstructive pulmonary disease with (acute) exacerbation (ICD-10) Severe persistent asthma with exacerbation �J45.51 - Severe persistent asthma with (acute) exacerbation (ICD-10) Morbid obesity �E66.01 - Morbid (severe) obesity due to excess calories (ICD-10) Other pulmonary collapse �J98.19 - Other pulmonary collapse (ICD-10) Chronic respiratory failure with hypoxia �J96.11 - Chronic respiratory failure with hypoxia (ICD-10) Bronchitis �J40 - Bronchitis, not specified as acute or chronic (ICD-10) Acute exacerbation of chronic obstructive pulmonary disease �J44.1 - Chronic obstructive pulmonary disease with (acute) exacerbation (ICD-10) Myofascial pain �M79.18 - Myalgia, other site (ICD-10) Greater trochanteric bursitis �M70.60 - Trochanteric bursitis, unspecified hip (ICD-10) Osteoarthritis of right hip �M16.11 - Unilateral primary osteoarthritis, right hip (ICD-10) Lumbar spondylosis �M47.816 - Spondylosis without myelopathy or radiculopathy, lumbar region (ICD-10) Lumbar postlaminectomy syndrome �M96.1 - Postlaminectomy syndrome, not elsewhere classified (ICD-10) Lumbar stenosis with neurogenic claudication �M48.062 - Spinal stenosis, lumbar region with neurogenic claudication (ICD-10) Depression �F32.A - Depression, unspecified (ICD-10) Chronic low back pain �M54.50 - Low back pain, unspecified (ICD-10) �G89.29 - Other chronic pain (ICD-10) Hypoxia �R09.02 - Hypoxemia (ICD-10) Heart murmur �R01.1 - Cardiac murmur, unspecified (ICD-10) Chronic obstructive pulmonary disease �J44.9 - Chronic obstructive pulmonary disease, unspecified (ICD-10) Asthma �J45.909 - Unspecified asthma, uncomplicated (ICD-10) Surgical History H/O cataract removal with insertion of prosthetic lens �Z98.49 - Cataract extraction status, unspecified eye (ICD-10) �Z96.1 - Presence of intraocular lens (ICD-10) Status post hip surgery �Z98.890 - Other specified postprocedural states (ICD-10) H/O foot surgery �Z98.890 - Other specified postprocedural states (ICD-10) H/O tubal ligation �Z98.51 - Tubal ligation status (ICD-10) History of lumbar fusion �Z98.1 - Arthrodesis status (ICD-10) Family History Mother Family history of CHF (congestive heart failure) Family history of hypertension Father Family history of hypertension Family history of myocardial infarction Social History (Updated 01/08/25 @ 17:25 by Yuni Loza RN) Within the past year, how often did you have a drink containing alcohol: never Score interpretation: A score less than 3 is consistent with normal alcohol consumption. Smoking status: Never smoker Second hand tobacco smoke exposure: No Non-prescribed substance use: denies use Previous occupational history: retired Highest level of school completed/degree received: Associate degree: occupational, technical, vocational program Are you now , , , , never or living with a partner: In a typical week, how many times do you talk on the telephone with family, friends, or neighbors: 3 or more times per week How often do you get together with friends or relatives: 3 or more times per week How often do you attend presybeterian or faith services: 4 or more times per year Do you belong to any clubs or organizations such as presybeterian groups unions, [employer] or athletic groups, or school groups: no Total score: 2 Score interpretation: A score of greater than or equal to 2 indicates the lowest level of social isolation. Little interest or pleasure in doing things: not at all Feeling down, depressed, or hopeless: not at all Feel stressed/tense/nervous/anxious/difficulty sleeping: not at all Do you think of yourself as: straight/heterosexual Gender Identity: female Meds Home Medications and Allergies Home Medications �Medication �Instructions �Recorded �Confirmed �Type magnesium oxide 400 mg (241.3 mg 400 mg PO DAILY 04/10/23 05/12/25 History magnesium) tablet omeprazole 20 mg capsule,delayed 20 mg PO BID 04/10/23 05/12/25 History release montelukast 10 mg tablet 10 mg PO DAILY 09/14/23 05/12/25 History pregabalin 75 mg capsule 75 mg PO BID 11/25/23 05/12/25 History trazodone 100 mg tablet 100 mg PO .qhs 11/25/23 05/12/25 History baclofen 10 mg tablet 10 mg PO Q8H 02/03/24 05/12/25 History albuterol sulfate 2.5 mg/3 mL 2.5 mg inhalation QID PRN 06/06/24 05/12/25 History (0.083 %) solution for nebulization shortness of breath or wheezing sodium chloride 0.9 % for 2.5 ml inhalation Q8H PRN 06/28/24 05/12/25 History nebulization shortness of breath or wheezing latanoprost 0.005 % eye drops 1 drp ophthalmic (eye) .HS 08/09/24 05/12/25 History budesonide 160 mcg-glycopyr 9 2 inh inhalation Q12H 03/10/25 05/12/25 History mcg-formot 4.8 mcg/actuation HFA inhaler (Breztri Aerosphere) nystatin 100,000 unit/gram topical 1 applic topical BID 03/10/25 05/12/25 History cream paroxetine HCl 40 mg tablet 40 mg PO DAILY 03/10/25 05/12/25 History pramipexole 0.25 mg tablet 0.25 mg PO .qhs 03/11/25 05/12/25 History guaifenesin 600 mg tablet, 600 mg PO Q12H 7 days #14 tabs 03/16/25 05/12/25 Rx extended release 12 hr (Mucus Relief ER) insulin glargine 100 unit/mL (3 15 unit (0.15 mL) subcut QD #15 mL 03/16/25 05/12/25 Rx mL) subcutaneous pen (Lantus Solostar U-100 Insulin) ipratropium 0.5 mg-albuterol 3 mg 3 ml inhalation Q4H PRN Shortness 03/16/25 05/12/25 Rx (2.5 mg base)/3 mL nebulization Of Breath Or Wheezing 30 days #180 soln mL levofloxacin 500 mg tablet 500 mg PO DAILY 5 days #5 tabs 03/16/25 05/12/25 Rx prednisone 10 mg tablet 10 mg PO .as directed #49 tabs 03/16/25 05/12/25 Rx ensifentrine 3 mg/2.5 mL 2.5 ml inhalation BID 04/30/25 05/12/25 History suspension for nebulization (Ohtuvayre) ferrous sulfate 325 mg (65 mg 325 mg PO DAILY 04/30/25 05/12/25 History iron) tablet (iron) furosemide 40 mg tablet (Lasix) 20 mg PO DAILY 04/30/25 05/12/25 History trospium 60 mg capsule,extended 60 mg PO DAILY 04/30/25 05/12/25 History release 24 hr Allergies Allergy/AdvReac Type Severity Reaction Status Date / Time No Known Drug Allergies Allergy Verified 05/12/25 09:53 Exam Constitutional Documenting provider has reviewed patient's vital signs: yes Common normals: no apparent distress, oriented x3, healthy appearing, alert and well nourished General appearance: cooperative Nutritional appearance: overweight HENMT Common normals: normocephalic, hearing grossly normal bilaterally and moist oral mucous membranes Head and scalp: normocephalic Eye Common normals: PERRL Pupil: PERRL Neck & C-Spine Common normals: full ROM General: normal visual inspection Chest Common normals: inspection of chest normal Respiratory Common normals: normal respiratory effort, no retractions and no use of accessory muscles Extremity Right lower extremity: hip joint Other: no pain with internal and external log roll right sij negative jamil(patricks), gaenslens, thigh thrust, compression test Neuro Common normals: oriented x3 Sensorium/orientation: alert Psych Common normals: mental status grossly normal, thought process normal, cooperative, affect normal, speech normal and activity/motor behavior normal Speech: normal speech Thought process: normal thought process Results Additional Findings Additional findings: If on a controlled substance or opioids, I have checked an [place] report on this patient and there are no aberrancies noted in the prescribing history.��If on a controlled substance or opioid a drug screen was completed and reviewed within the last year, and if there has not been a drug screen completed we ordered one today to monitor higher risk, state monitored pain medication use. As part of providing excellent, safe, comprehensive care, the following was completed at our patient's visit: 1. A medication reconciliation and review to ensure accurate knowledge of current/active medications, including asking our patients to inform us about any dcce-hny-njrampa medications or herbal remedies/nutritional supplements/alternative remedies. 2. A review to specifically ensure our patients have had annual screening for screening for depression, screening for tobacco use, and screening for unhealthy alcohol use. For concerning screenings had a discussion with the patient, provided patient education, and recommended follow-up with primary care provider when appropriate. If patient noted with a risk of falling, they received education on strength, gait, and balance training to prevent future risk of falling. Portions of this note may have been carried over from the previous visit and updated as appropriate. Please note this office utilizes paper charting in addition to the electronic medical record. A list of current medications, vitals, and PMH is available there as the clinical staff outside of myself do not have access to [employer] charting during the clinic day operations. As part of providing quality comprehensive care the current medications, vitals, and PMH were reviewed in the paper chart. Assessment and Plan Assessment and Plan (1) Osteoarthritis of right hip: Assessment and Plan: The patient has had over 3 months of moderate to severe right hip pain with functional impairment and inadequate response to conservative care including NSAIDS (unless there are contraindication such as concurrent blood thinners), multiple oral or topical pain medications, and home exercise program/physical therapy.� Patient has completed >6 weeks of guided home exercise program and/or formal physical therapy program without relief of their symptoms.� I have reviewed the imaging of the right hip and no red flags were identified.� The Oswestry Disability Index was completed, and the patient scored a 33%.� The patient noted the following:�� moderate to severe pain impacting ADLs, sitting, standing, walking, sleeping, social life, travel 05/19/25 right hip injection moderate ongoing relief Qualifiers: Osteoarthritis type: primary Qualified Code(s): M16.11 - Unilateral primary osteoarthritis, right hip (2) Sacroiliitis: Plan right hip injection providing moderate relief continue current medications through ordering providers continue HEP as tolerated f/u 3 months, sooner if needed
== END 2025-05-22 08:38 | disposition home or self-care (01) ==
LOC: PM 08:37
PROVIDERS: PCP Nurse Practitioner; Visit Provider Nurse Practitioner
DX: M16.11 Unilateral primary osteoarthritis, right hip (principal); M46.1 Sacroiliitis, not elsewhere classified
CPT/HCPCS: G0463

== ENCOUNTER 2025-07-05 15:07 | Inpatient (IN) | payer MEDICARE, MEDICAID, SELFPAY ==
--- OUTSIDE RECORDS SUMMARY | 2018-10-04 05:00 | XMS_ITS | Continuity of Care Document ---
Author Organization [facility] Address [address] [place] [address] Phone Care Team Providers Care Press Operator Name Role Phone Tino Montelongo DDS [...] Nov-15-2 018 Nutrit Couns For Control Of [place] Dis Sep Oral Hygiene Instruction Removal Of [...] Eval Panoramic Film Intraoral-periapical 1st Film 8 Mcjqwppcd-awwbblmgck-qnbi Additional Jun Perxlcbza-kmfqwogqyf-nypr Additional Jun Comp Oral Eval New/estab Patient 2017 Oral Hygiene Instruction Initial Oral Exam Advance Directives Directive Yes / No Effective Date File Name No Information Encounters Encounter Description Practice Location Reason(s) For Visit Diagnoses Date Provider Providers Copied on Encounter [facility], [address] [place] [address], [id number] , tel:[phone] Dental Clinic post opt (chief complaint) Encounter for screening for dental disorders 8 Reginald Jiménez. [address] [place], [place], [id number], [place]. tel:[phone] [facility], [address] [place] [address], [id number] , tel:[phone] Dental Clinic extraction (chief complaint) Encounter for screening for dental disorders 8 Tigist Bahena. [address] [place] [address], [id number], [place]. tel:[phone] [facility], [address] [place], [place], [id number] , [place] tel: [phone] Dental Clinic Encounter for screening for dental disorders 8 Tigist ALEMANRajendra Josef. [address] [place], [place], [id number], [place]. tel:[phone] [facility], [address] [place] [address], [id number] , [place] tel: [phone] Dental Clinic EXT (chief complaint) Encounter for screening for dental disorders 8 Sivasanisabelan DMD Deepasulochana. [address] [place], [address], [place]. tel:[phone] [facility], [address] [place] [address], [id number] , [place] tel: [phone] Dental Clinic Dental Limited (chief complaint) Encounter for screening for dental disorders 8 Sivasankaraganesan DMD Deepasulochana. [address] [place], [address], [place]. tel:[phone] [facility], [address] [place] [address], [id number] , [place] tel:[phone] Dental Clinic Dental New (chief complaint) Encounter for screening for dental disorders 8 Sivasanisabelan DMD Deepasulochana. [address] [place] [address], [id number], [place]. tel:[phone] Family History Family Member Type Diagnosis Age At Onset Father Problem (finding) Cardiovascular disease Mother Problem (finding) Cardiovascular disease Payers Payer name Insurance type Covered republican ID Authoriza tion(s) No Information Social History [...]
--- OUTSIDE RECORDS SUMMARY | 2018-10-04 05:00 | XMS_ITS | Continuity of Care Document ---
Author Organization [facility] Address [address] [place] [address] Phone Care Team Providers Care Environmental Issues Instructor Name Role Phone Tino Montelongo DDS Unavailable [...] Nov-15-2 018 Nutrit Couns For Control Of [place] Dis Sep Oral Hygiene Instruction Removal Of [...] Eval Panoramic Film Intraoral-periapical 1st Film 8 Thxxxqzla-rpyqgotztb-fcnz Additional Jun Mmbvaqezt-brgzmifhza-rvyv Additional Jun Comp Oral Eval New/estab Patient 2017 Oral Hygiene Instruction Initial Oral Exam Advance Directives Directive Yes / No Effective Date File Name No Information Encounters Encounter Description Practice Location Reason(s) For Visit Diagnoses Date Provider Providers Copied on Encounter [facility], [address] [place] [address], [id number] , tel:[phone] Dental Clinic post opt (chief complaint) Encounter for screening for dental disorders 8 Reginald Jiménez. [address] [place], [place], [id number], [place]. tel:[phone] [facility], [address] [place] [address], [id number] , tel:[phone] Dental Clinic extraction (chief complaint) Encounter for screening for dental disorders 8 Tigist Bahena. [address] [place] [address], [id number], [place]. tel:[phone] [facility], [address] [place], [place], [id number] , [place] tel: [phone] Dental Clinic Encounter for screening for dental disorders 8 Tigist ALEMANRajendra Josef. [address] [place], [place], [id number], [place]. tel:[phone] [facility], [address] [place] [address], [id number] , [place] tel: [phone] Dental Clinic EXT (chief complaint) Encounter for screening for dental disorders 8 Sivasanisabelan DMD Deepasulochana. [address] [place], [address], [place]. tel:[phone] [facility], [address] [place] [address], [id number] , [place] tel: [phone] Dental Clinic Dental Limited (chief complaint) Encounter for screening for dental disorders 8 Sivasankaraganesan DMD Deepasulochana. [address] [place], [address], [place]. tel:[phone] [facility], [address] [place] [address], [id number] , [place] tel:[phone] Dental Clinic Dental New (chief complaint) Encounter for screening for dental disorders 8 Sivasanisabelan DMD Deepasulochana. [address] [place] [address], [id number], [place]. tel:[phone] Family History Family Member Type Diagnosis Age [...]
--- OUTSIDE RECORDS SUMMARY | 2018-10-04 05:00 | XMS_ITS | Continuity of Care Document ---
Author Organization [facility] Address [address] [place] [address] Phone Care Team Providers Care Health Information Technologist Name Role Phone Tino Montelongo DDS Unavailable [...] Nov-15-2 018 Nutrit Couns For Control Of [place] Dis Sep Oral Hygiene Instruction Removal Of [...] Eval Panoramic Film Intraoral-periapical 1st Film 8 Mecusdljd-wlgwnxvdsa-kxiw Additional Jun Siqcpvvql-suwowhqlru-hxac Additional Jun Comp Oral Eval New/estab Patient 2017 Oral Hygiene Instruction Initial Oral Exam Advance Directives Directive Yes / No Effective Date File Name No Information Encounters Encounter Description Practice Location Reason(s) For Visit Diagnoses Date Provider Providers Copied on Encounter [facility], [address] [place] [address], [id number] , tel:[phone] Dental Clinic post opt (chief complaint) Encounter for screening for dental disorders 8 Reginald Jiménez. [address] [place], [place], [id number], [place]. tel:[phone] [facility], [address] [place] [address], [id number] , tel:[phone] Dental Clinic extraction (chief complaint) Encounter for screening for dental disorders 8 Tigist Bahena. [address] [place] [address], [id number], [place]. tel:[phone] [facility], [address] [place], [place], [id number] , [place] tel: [phone] Dental Clinic Encounter for screening for dental disorders 8 Tigist ALEMANRajendra Josef. [address] [place], [place], [id number], [place]. tel:[phone] [facility], [address] [place] [address], [id number] , [place] tel: [phone] Dental Clinic EXT (chief complaint) Encounter for screening for dental disorders 8 Sivasanisabelan DMD Deepasulochana. [address] [place], [address], [place]. tel:[phone] [facility], [address] [place] [address], [id number] , [place] tel: [phone] Dental Clinic Dental Limited (chief complaint) Encounter for screening for dental disorders 8 Sivasankaraganesan DMD Deepasulochana. [address] [place], [address], [place]. tel:[phone] [facility], [address] [place] [address], [id number] , [place] tel:[phone] Dental Clinic Dental New (chief complaint) Encounter for screening for dental disorders 8 Sivasanisabelan DMD Deepasulochana. [address] [place] [address], [address], [place]. tel:[phone] Family History Family Member Type Diagnosis Age [...]
--- OUTSIDE RECORDS SUMMARY | 2025-02-24 05:02 | XMS_ITS ---
Author Organization [facility] in [place] Address [address] [place] [address] Care Team Providers Care Elevator Worker Name Role Phone Briannataliyajocelyne GALLOKaylene Primary Care Provider Unavail able Corbin Lopes Unavailable [phone] REASON FOR VISIT Breztri Refill Medications Medication SIG (Take, Route, Frequency, Duration) Notes Start Date End Date Status Breztri Aerosphere 160-9-4.8 MCG/ACT 2 puffs Inhalation Twice a day for 90 days Rinse after use Patient has myopathy and unable to generate enough inspiratory force for dry powder inhalers 02/24/2025 Active Encounters Encounter Location Date Provider Diagnosis Pulmonary Medicine [address] [address] 02/24/2025 Corbin Lopes Chronic obstructive pulmonary disease J44.9 Assessments Encounter Date Diagnosis (ICD Code) Assessment Notes Treatment Notes Treatment Clinical Notes Section Notes 02/24/2025 Chronic obstructive pulmonary disease (ICD-10 - J44.9) Prior treatment: Trelegy 100 > Breo 100 > Spiriva > albuterol > Atrovent Plan Of Treatment Medication Medication Name Sig Start Date Stop Date Notes Trelegy Ellipta 200-62.5-25 MCG/ACT 1 puff Inhalation Once a day 05/28/2024 Breztri Aerosphere 160-9-4.8 MCG/ACT 2 puffs Inhalation Twice a day for 90 days 02/24/2025 Patient has myopathy and unable to generate enough inspiratory force for dry powder inhalers Progress Notes * Diana CHAMPION ADOB: 6 (69 yo F)Acc No.[id number]:02/24/2025 Patient: Diana AMARAL :1955 A ge:69 Y S ex:Female Address:[address] [place] [address], [place] [address], [place], [address] * Refills Stop Trelegy Ellipta Aerosol Powder Breath Activated, 200-62.5-25 MCG/ACT, Inhalation, 1 puff, Once a day Start Breztri Aerosphere Aerosol, 160-9-4.8 MCG/ACT, Inhalation, 3 each, 2 puffs, Twice a day, 90 days, Refills=4 Subjective: * Chief Complaints: * B reztri Refill * Medical History: * Surgical History: * Hospitalization/Major Diagno stic Procedure: * Medications: Objective: * Vitals: * Physical Examination: Assessment: * Assessment: 1. C hronic obstructive pulmonary disease - J44.9 (Primary) N otes :Prior treatment: Trelegy 100 > Breo 100 > Spiriva > albuterol > Atrovent Plan: * Treatment: * Procedure Codes: * true * Date: Generated for Walter márquez/Suman/Dulceitting on: 0 07/10/2025 12:41 AM EDT
--- OUTSIDE RECORDS SUMMARY | 2025-02-24 05:02 | XMS_ITS ---
Author Organization [facility] in [place] Address [address] [place] [address] Care Team Providers Care Physical Integration Practitioner Name Role Phone Briannataliyajocelyne GALLOKaylene Primary Care Provider Unavail able Corbin Lopes Unavailable [phone] REASON FOR VISIT Breztri Refill Medications Medication SIG (Take, Route, Frequency, Duration) Notes Start Date End Date Status Breztri Aerosphere 160-9-4.8 MCG/ACT 2 puffs Inhalation Twice a day for 90 days Rinse after use Patient has myopathy and unable to generate enough inspiratory force for dry powder inhalers 02/24/2025 Active Encounters Encounter Location Date Provider Diagnosis Pulmonary Medicine [address] [address] 02/24/2025 Corbin Lopes Chronic obstructive pulmonary disease [...] Diana CHAMPION ADOB: 6 (69 yo F)Acc No.[id number]:02/24/2025 Patient: Diana AMARAL :1955 A ge:69 Y S ex:Female Address:[address] [place] [address], [place] [address], [place], [address] * Refills Stop Trelegy Ellipta Aerosol Powder [...] Date: Generated for Walter márquez/Suman/Dulceitting on: 0 07/08/2025 06:45 AM EDT
--- OUTSIDE RECORDS SUMMARY | 2025-02-24 05:02 | XMS_ITS ---
Author Organization [facility] in [place] Address [address] [place] [address] Care Team Providers Care Manager Work Name Role Phone Briannataliyajocelyne GALLOKaylene Primary Care Provider Unavail able Corbin Lopes Unavailable [phone] REASON FOR VISIT Breztri Refill Medications Medication SIG (Take, Route, Frequency, Duration) Notes Start Date End Date Status Breztri Aerosphere 160-9-4.8 MCG/ACT 2 puffs Inhalation Twice a day for 90 days Rinse after use Patient has myopathy and unable to generate enough inspiratory force for dry powder inhalers 02/24/2025 Active Encounters Encounter Location Date Provider Diagnosis Pulmonary Medicine [address] [address] 02/24/2025 Corbin Lopes Chronic obstructive pulmonary disease [...] Diana CHAMPION ADOB: 6 (69 yo F)Acc No.[id number]:02/24/2025 Patient: Diana AMARAL :1955 A ge:69 Y S ex:Female Address:[address] [place] [address], [place] [address], [place], [address] * Refills Stop Trelegy Ellipta Aerosol Powder [...] Date: Generated for Walter márquez/Suman/Dulceitting on: 0 07/05/2025 03:15 PM EDT
--- OUTSIDE RECORDS SUMMARY | 2025-04-02 06:30 | XMS_ITS ---
Author Organization [facility] in [place] Address [address] [place] [address] Care Team Providers Care Wire Coater Name Role Phone Rene CLEOKaylene Primary Care Provider Unavail able Corbin Lopes Unavailable [phone] Allergies No Known Allergies REASON FOR VISIT 2m F/U - COPD Medications Medication SIG (Take, Route, Frequency, Duration) Notes Start Date End Date Status traZODone HCl 100 MG 1 tablet at bedtime as needed Orally Once a day Active Sodium Chloride 0.9 % 3mL Inhalation TID for 30 Active Trospium Chloride ER 60 MG Oral for 30 Days Active Vitamin D3 25 MCG (1000 UT) 1 capsule Orally Once a day Active Omeprazole 20 MG 1 capsule 30 minutes before morning meal Orally BID Active Ohtuvayre 3 MG/2.5ML 2.5 mL Inhalation Twice a day 04/02/2025 Active Pregabalin 75 MG Oral for 30 Days Active Pramipexole Dihydrochloride 0.25 MG Oral for 30 Days Active Mucinex 600 MG 1 tablet as needed Orally every 12 hrs for 90 days Active Latanoprost 0.005 % INSTILL 1 DROP INTO EACH EYE AT BEDTIME Ophthalmic for 45 Days Active Iron 325 (65 Fe) MG 1 tablet Orally Every other day Active Montelukast Sodium 10 MG 1 tablet Orally Once a day for 90 days Active Magnesium Oxide 400 MG 1 tablet as needed Orally Once a day Active Fluticasone Propionate 50 MCG/ACT 2 squirts in each nostril Nasally QD for 90 days Dispense 3 bottles Active Albuterol Sulfate (2.5 MG/3ML) 0.083% 3mL Inhalation QID for 90 days Dispense #360 nebules Active Breztri Aerosphere 160-9-4.8 MCG/ACT 2 puffs Inhalation Twice a day for 90 days Rinse after use Patient has myopathy and unable to generate enough inspiratory force for dry powder inhalers 02/24/2025 Active Albuterol Sulfate HFA 108 (90 Base) MCG/ACT 2 puffs as needed for SOB Inhalation every 4 hrs Active Clotrimazole 10 MG 1 neelima Mouth/Throat QID for 10 days Dissolve in mouth 05/02/2023 Active Social History Tobacco Use: Social History Observation Description Date Details (start date - stop date) Never Smoker NA - NA Tobacco Control (Standard) Question Answer Notes Tobacco use: Nonsmoker Vital Signs Weight 235.0 lbs 04/02/2025 Height 61 in 04/02/2025 Blood pressure systolic 129 mm Hg 04/02/20 25 Blood pressure diastolic 66 mm Hg 025 Temperature 96.8 degrees Fahrenheit 04/02/20 25 Heart Rate 80 /min 04/02/2025 Respiratory Rate 20 /min 04/02/2025 BMI 44.4 kg/m2 04/02/2025 Oximetry 95 % 04/02/2025 3L O2 Activity/Resting Encounters Encounter Location Date Provider Diagnosis Pulmonary Medicine [address] [id number] 04/02/2025 Corbin Lopes Chronic obstructive pulmonary disease J44.9 ; Other pulmonary collapse J98.19 ; 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 Breztri working much better than Trelegy - it requires less NIF than Trelegy. Will continue current treatment for now. Reassess in 3 months given severity of her pulmonary disease. 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 Compliance from 02/26/2025 - 03/27/2025 was reviewed. Doing awesome with NIV - despite hospitalization and rehab stint, she was still able to have her son bring in her NIV and she maintained excellent compliance at 28/30 days (93%). Residual AHI 4.1. No issues with mask, pressures, etc. No complaints of rash today. 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 -Use of vest twice daily: Yes -Improvement of mobilization and clearance of secretions: Yes -Amplitude/frequenc y of oscillations tolerable: Yes -Continues to use nebulized saline: Yes -Continues to use PEP device: Yes -Recommendations: Encouraged patient to keep up the pulmonary toilet. Continue vest, PEP, and saline nebs. 04/02/2025 Other secondary pulmonary hypertension (ICD-10 - I27.29) Echocardiogram January 2025 continues to show elevated RVSP; it is currently 63 mmHg. She is seeing cardiology and suspect it is group 3 etiology (pulmonary). Treatment generally is treating the underlying conditions, which are very difficult to manage. 04/02/2025 Chronic respiratory failure with hypoxia (ICD-10 - J96.11) Dmmw-cd-ycnz encounter performed with the patient to document continued need for supplemental oxygen (O2). -Flow & directions: 3L/min ATC -Patient voices adherence to recommended usage: Yes -Symptom control on O2: Improved. -Counseled patient not begin, restart, or continue [...] point of requiring O2. -Recommendations: Continue O2 ATC. 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 04/02/2025 History of COVID-19 (ICD-10 - Z86.16) 04/04/2023: Severe associated hypoxic respiratory failure 04/02/2025 Morbid (severe) obesity due to excess calories (ICD-10 - E66.01) Patient's weight is inducing a restrictive pulmonary physiology. Weight loss indicated: Decrease calories, increase activity. 04/02/2025 Other As above, suggested patient scrub her face twice daily with Selsun Blue. Any further treatment, follow-up with PCP. Plan Of Treatment Treatment Notes Assessment Notes Chronic obstructive pulmonary disease Prior treatment: Breztri > Trelegy 200 > Trelegy 100 > Breo 100 > Spiriva > albuterol > Atrovent She is doing better since hospitalization. Breztri working much better than Trelegy - it requires less NIF than Trelegy. Will continue current treatment for now. Reassess in 3 months given severity of her pulmonary disease. 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 Compliance from 02/26/2025 - 03/27/2025 was reviewed. Doing awesome with NIV - despite hospitalization and rehab stint, she was still able to have her son bring in her NIV and she maintained excellent compliance at 28/30 days (93%). Residual AHI 4.1. No issues with mask, pressures, etc. No complaints of rash today. Critical illness myopathy Nmpm-rq-yqef encounter performed with the patient to document continued need for a high frequency chest wall oscillation (vest) device. -Use of vest twice daily: Yes -Improvement of mobilization and clearance of secretions: Yes -Amplitude/frequency of oscillations tolerable: Yes -Continues to use nebulized saline: Yes -Continues to use PEP device: Yes -Recommendations: Encouraged patient to keep up the pulmonary toilet. Continue vest, PEP, and saline nebs. Other secondary pulmonary hypertension Echocardiogram January 2025 continues to show elevated RVSP; it is currently 63 mmHg. She is seeing cardiology and suspect it is group 3 etiology (pulmonary). Treatment generally is treating the underlying conditions, which are very difficult to manage. Chronic respiratory failure with hypoxia Ujff-vo-rflm encounter performed with the patient to document continued need for supplemental oxygen (O2). -Flow & directions: 3L/min ATC -Patient voices adherence to recommended usage: Yes -Symptom control on O2: Improved. -Counseled patient not begin, restart, or continue [...] point of requiring O2. -Recommendations: Continue O2 ATC. 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 Next Appt Details Follow Up: 3 Months, Reason: Dyspnea Procedure Notes * Category Sub-Category Detail Notes [...] Diana CHAMPION ADOB: 6 (69 yo F)Acc No.[id number]:04/02/2025 Follow Up Patient: Diana AMARAL Provider: Jona Lopes DO :1955 A ge:69 Y S ex:Female Date:04/02/2025 Address:[address] [place], [place] [address], [address], [place], [phone] Pcp:Kaylene López, [employer] Check In:10:10 AM ESTCheck O ut:11:03 AM EST Subjective: * Chief Complaints: * 2 m F/U - COPD * HPI: G eneral: Patient was admitted to [facility] 03/11/2025 - 03/16/2025 for pneumonia - I saw her inpatient in consultation. She then went to [facility] for rehab and was discharged from there on 03/27/2025. She has home PT. She looks much better for her today! She came into the office under her own strength with a wheeled walker - did not require use of a wheel chair. She states being more active, she has been able to clear her secretions easier as well. She feels better. No new issues! She was changed from Trelegy to Breztri last visit - this is working much better for her. Easier to breathe in with HFA compared to DPI. MA Intake Comments:. Patient presents for a follow-up for COPD. Patient is currently on 3L O2/NIV therapy at home. DME:[facility]. Patient complains of SOB & Cough today. Patient states her breathing has improved since her last visit. Patient is currently exercising more at home. Patient denies any complaints with her NIV. Patient is using Breztri, Nebulizer & Vest daily with great benefit. Patient was switched to Breztri from Trelegy and states she is doing much better with Breztri than Trelegy. Patient reports using Ohtuvayre twice per day with benefit. Patient denies any complaints or concerns with the medication. Patient is under the care of [facility] Cardiology. * ROS: G eneral/Constitutional: Fatigue c hronic. F ever or sweats d enies. C hange of appetite d enies. C hills d enies.?Weight Change d enies. H EENT: Dry mouth m ild, chronic. S ore throat d enies. O ral Ulcers d enies. C ongestion n fanny congestion/allergies. H oarseness D enies. C ardiovascular: Tachycardia d enies. C hest pain d enies. P alpitations d enies. R espiratory: Pleurisy D enies. D yspnea w ith exertion. C ough d aily productive cough - controlled 04/02/2025. H emoptysis d enies. W heezing d enies. G astrointestinal: Acid Reflux/GERD/Heartburn d enies. D ysphagia d enies. M usculoskeletal: Arthralgias/joint pain h ip. W eakness C hronic secondary to post-COVID critical illness myopathy. S kin: Rash d enies. N eurologic: Seizures d enies. T remor [...] Z86.16 History of COVID-19 Modified On:12/12/2023 Z79.51 retirement (current) use of inhaled steroids Modified On:12/12/2023 E66.01 Morbid (severe) obes ity due to excess calories Modified On:12/12/2023 R91.8 Multiple pulmonary n odules Modified On:12/12/2023 J98.19 Other pulmonary jia apse Modified On:02/14/2024 I27.29 Other secondary pulm onary hypertension Modified On:07/31/2023 G25.81 Restless leg syndrom e Modified On:12/12/2023 Z68.41 Body mass index [BMI ] 40.0-44.9, adult Modified On:06/12/2024W/U Status:confirmed * Medical History: * Surgical History: s egma fusion Cardiac Catheterization tubal ligation Right Foot Surgery right knee replacement left hip replacement Bronchoscopy- 07/02/2024 * Hospitalization/Major Diagno stic Procedure: C ovid-19-[facility] 04/10/2023Sepsis/Pneumonia-TB 4Pneumonia-TB 02/03/2024OPD Exacerbation-TB 4COPD Exacerbation-TB 06/07/2024Hospital Acquired Pneumonia-[facility] 08/08/2024OPD Exacerbation, pneumonia-[facility] 5Asthma/COPD Exacerbation-[facility] 5COVID & Pseudomonas pneumonia-[facility] 01/08/2025HCAP - [facility] 03/11/2025 * Family History: F ather: COPD, hyperthyroidism, [...] alker, Wheelchair 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 D rugs/Alcohol: D rugs H [...] needed for SOB Inhalation every 4 hrs Breztri Aerosphere(Voxwvfv-Nlzbmpalhzt-Vjtwnksfgk) 160-9-4.8 MCG/ACT Aerosol 2 puffs Inhalation Twice a day Rinse after use, Notes to Pharmacist: Patient has myopathy and unable to generate enough inspiratory force for dry powder inhalersClotrimazole 10 MG Neelima 1 neelima Mouth/Throat QID [...] tablet as needed Orally every 12 hrs Ohtuvayre(Ensifentrine) 3 MG/2.5ML Suspension 2.5 mL Inhalation Twice a day Omeprazole 20 MG Capsule Delayed Release 1 capsule 30 minutes before morning meal Orally BID Pramipexole Dihydrochloride 0.25 MG Tablet Oral Pregabalin 75 MG Capsule Oral Sodium Chloride 0.9 % Nebulization Solution 3mL Inhalation TID traZODone HCl 100 MG Tablet 1 tablet at bedtime as needed Orally Once a day Trospium Chloride ER 60 MG Capsule Extended Release 24 Hour Oral Vitamin D3 25 MCG (1000 UT) Capsule 1 capsule Orally Once a day Taking Albuterol Sulfate (2.5 MG/3ML) 0.083% Nebulization Solution 3mL Inhalation QID Dispense #360 nebulesTaking Albuterol Sulfate HFA 108 (90 Base) MCG/ACT Aerosol Solution 2 puffs as needed for SOB Inhalation every 4 hrs Taking Breztri Aerosphere(Oztnlye-Lyukmucvlql-Qqreustinh) 160-9-4.8 MCG/ACT Aerosol 2 puffs Inhalation Twice a day Rinse after use, Notes to Pharmacist: Patient has myopathy and unable to generate enough inspiratory force for dry powder inhalersTaking Clotrimazole 10 MG Neelima 1 neelima Mouth/Throat [...] as needed Orally every 12 hrs Taking Ohtuvayre(Ensifentrine) 3 MG/2.5ML Suspension 2.5 mL Inhalation Twice a day Taking Omeprazole 20 MG Capsule Delayed Release 1 capsule 30 minutes before morning meal Orally BID Taking Pramipexole Dihydrochloride 0.25 MG Tablet Oral Taking Pregabalin 75 MG Capsule Oral Taking Sodium Chloride 0.9 % Nebulization Solution 3mL Inhalation TID Taking traZODone HCl 100 MG Tablet 1 tablet at bedtime as needed Orally Once a day Taking Trospium Chloride ER 60 MG Capsule Extended Release 24 Hour Oral Taking Vitamin D3 25 MCG (1000 UT) Capsule 1 capsule Orally Once a day DiscontinuedSolifenacin Succinate 10 MG Tablet TAKE 1 TABLET BY MOUTH ONCE DAILY Oral Medication List reviewed and reconciled with the patientDiscontinued Solifenacin Succinate 10 MG Tablet TAKE 1 TABLET BY MOUTH ONCE DAILY Oral Medication List reviewed and reconciled with the patient * Allergies: N .K.D.A.no[Allergies Verified] Objective: * Vitals: W t:235.0lbs, Ht: 61 in, BP:sittin/66mm Hg, Temp:Forehead:96.8F, HR: 82 /min,80/min, RR:20/min, BMI:44.4Index, Oxygen sat %: Oxygen 3l:90 %,Oxygen 3l:95%, Ht-cm: 154.94 cm, Wt-k.6 kg. 3L O2 Activity/Resting. * Examination: E xam: GENERAL APPEARANCE: M ore healthy appearing that past several visits. Skin R derrell along nasal labial folds has drastically improved. Nose W earing nasal cannula. Mouth P ink and mildly dry. Oropharynx/Tongue M allampati Class III. No candidiasis. Trachea M idline. Chest N ormal. Respiratory N ormal Movements. Auscultation D ecreased rhonchi compared to last visit.? Faint expiratory wheeze. Fremitus V kinjal mild tactile fremitus. Cardiac R egular rate and rhythm. Gastrointestinal N ormal. Vascular N o edema. Musculoskeletal A ppears to have more strength today. Neurological F ocal, intact. 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 Compliance from 02/26/2025 - 03/27/2025 was reviewed. Doing awesome with NIV - despite hospitalization and rehab stint, she was still able to have her son bring in her NIV and she maintained excellent compliance at 28/30 days (93%). Residual AHI 4.1. No issues with mask, pressures, etc. No complaints of rash today. 3. C ritical illness myopathy Notes: Qudo-uu-myav encounter performed with the patient to document continued need for a high frequency chest wall oscillation (vest) device. -Use of vest twice daily: Yes -Improvement of mobilization and clearance of secretions: Yes -Amplitude/frequency of oscillations tolerable: Yes -Continues to use nebulized saline: Yes -Continues to use PEP device: Yes -Recommendations: Encouraged patient to keep up the pulmonary toilet. Continue vest, PEP, and saline nebs. 4. O ther secondary pulmonary hypertension Notes: Echocardiogram January 2025 continues to show elevated RVSP; it is currently 63 mmHg. She is seeing cardiology and suspect it is group 3 etiology (pulmonary). Treatment generally is treating the underlying conditions, which are very difficult to manage. 5. C hronic respiratory failure with hypoxia Notes: Vgos-ci-rqfb encounter performed with the patient to document continued need for supplemental oxygen (O2). -Flow & directions: 3L/min ATC -Patient voices adherence to recommended usage: Yes -Symptom control on O2: Improved. -Counseled patient not begin, restart, or continue [...] point of requiring O2. -Recommendations: Continue O2 ATC. 6. L myla term (current) use of [...] A lpha-1 Antitrypsin: Screening Date: . Genotype: Katy Burns. Ilya FT: Data: 01/24/2022 -FEV1/FVC: 76% -FEV1: 79% [...] of Medical Reason: N ot indicated B ME ACTION PLAN Above Normal BMI Follow-up D ietary management education, guidance, and counseling R IS-Awyjkp-56/13/2023. * Follow Up: 3 Months (Reason: Dyspnea) * * Sign off status: Completed Visit Status: C HK (Check Out) true * Provider: Jona Lopes DO Date: 0 04/02/2025 Generated for Walter márquez/Suman/eTransmitting on: 0 07/05/2025 03:16 PM EDT History and Physical Notes * HPI (History of Present Illness) Category Sub-Category Detail Notes Category Not es General Patient present s for a follow-up for COPD. Patient is currently on 3L O2/NIV therapy at home. DME:[employer]. Patient complains of SOB & Cough today. Patient states her breathing has improved since her last visit. Patient is currently exercising more at home. Patient denies any complaints with her NIV. Patient is using Breztri, Nebulizer & Vest daily with great benefit. Patient was switched to Breztri from Trelegy and states she is doing much better with Breztri than Trelegy. Patient reports using Ohtuvayre twice per day with benefit. Patient denies any complaints or concerns with the medication. Patient is under the care of [facility] Cardiology. Examination Category Sub-Category Detail Notes Category Not es Exam GENERAL APPEARANCE: More healthy appearing that past several visits Skin: Neurological: Skin Rash along nasal lab ial folds has drastically improved Eyes Ears Nose Wearing nasal cannul a Mouth [place] and mildly dry Trachea Midline Chest Normal Respiratory Normal Movements Auscultation Decreased rhonchi co mpared to last visit. Faint expiratory wheeze Percussion Egophony Bronchophony Fremitus Very mild tactile fr emitus Whispered pectoriloquy Cardiac Regular rate and rhy thm Gastrointestinal Normal Vascular No edema Musculoskeletal Appears to have more strength today Neurological Focal, intact Psychiatric Alert and oriented x 3 Mentation/Cognition Normal Oropharynx/Tongue Mallampati Class III . No candidiasis
--- OUTSIDE RECORDS SUMMARY | 2025-04-02 06:30 | XMS_ITS ---
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 [...] 04/02/2025 Critical illness myopathy (ICD-10 - G72.81) Eqnd-jg-goqb encounter performed with the patient to document [...] respiratory failure with hypoxia (ICD-10 - J96.11) Jqfc-cd-lpzr encounter performed with the patient to document [...] requiring O2. -Recommendations: Continue O2 ATC. 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 Compliance from 02/26/2025 - 03/27/2025 was reviewed. Doing awesome with NIV - despite hospitalization and rehab stint, she was still able to have her son bring in her NIV and she maintained excellent compliance at 28/30 days (93%). Residual AHI 4.1. No issues with mask, pressures, etc. No complaints of rash today. Critical illness myopathy Yolc-ct-qyhw encounter performed with the patient to document [...] to manage. Chronic respiratory failure with hypoxia Vdyu-it-owbg encounter performed with the patient to document [...] of requiring O2. -Recommendations: Continue O2 ATC. MCC (current) use of i nhaled steroids Patient [...] Diana CHAMPION ADOB: 6 (69 yo F)Acc No.[id number]:04/02/2025 Follow Up Patient: Diana AMARAL Provider: Jona Lopes DO :1955 A ge:69 Y S ex:Female Date:04/02/2025 Address:[address] [place], [place] [address], [address], [place], [phone] Pcp:Kaylene López, ACT TUTOR Check In:10:10 AM ESTCheck O ut:11:03 AM EST Subjective: * Chief Complaints: * 2 m F/U - COPD * HPI: G eneral: Patient was admitted to [facility] 03/11/2025 - 03/16/2025 for pneumonia - I saw her inpatient in consultation. She then went to [facility] for rehab and was discharged from there [...] currently on 3L O2/NIV therapy at home. DME:[employer]. Patient complains of SOB & Cough today. [...] medication. Patient is under the care of [facility] Cardiology. * ROS: G eneral/Constitutional: Fatigue c [...] Z86.16 History of COVID-19 Modified On:12/12/2023 Z79.51 MCC (current) use of inhaled steroids Modified On:12/12/2023 [...] 07/02/2024 * Hospitalization/Major Diagno stic Procedure: C ovid-19-[facility] 04/10/2023Sepsis/Pneumonia-TB 4Pneumonia-TB 02/03/2024OPD Exacerbation-TB 4COPD Exacerbation-TB 06/07/2024Hospital Acquired Pneumonia-[facility] 08/08/2024OPD Exacerbation, pneumonia-[facility] 5Asthma/COPD Exacerbation-[facility] 5COVID & Pseudomonas pneumonia-[facility] 01/08/2025HCAP - [facility] 03/11/2025 * Family History: F ather: [...] alker, Wheelchair 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 D rugs/Alcohol: D rugs H [...] for SOB Inhalation every 4 hrs Breztri Aerosphere(Uvhmupk-Qdcmurngznv-Plzsjegryq) 160-9-4.8 MCG/ACT Aerosol 2 puffs Inhalation Twice [...] SOB Inhalation every 4 hrs Taking Breztri Aerosphere(Dmfilrf-Zfamrxvysxv-Yocbjtctbe) 160-9-4.8 MCG/ACT Aerosol 2 puffs Inhalation Twice [...] last visit.? Faint expiratory wheeze. Fremitus V knijal mild tactile fremitus. 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 [...] today. 3. C ritical illness myopathy Notes: Hbtr-zf-bclk encounter performed with the patient to document [...] C hronic respiratory failure with hypoxia Notes: Ojcm-jv-vqrl encounter performed with the patient to document [...] of Medical Reason: N ot indicated B DE ACTION PLAN Above Normal BMI Follow-up D ietary management education, guidance, and counseling R DD-Ntrsfi-27/13/2023. * Follow Up: 3 Months (Reason: Dyspnea) * * Sign off status: Completed Visit Status: C HK (Check Out) true * Provider: Jona Lopes DO Date: 0 04/02/2025 Generated for Walter márquez/Suman/eTransmitting on: 0 07/10/2025 12:42 AM EDT History and Physical Notes * HPI [...] medication. Patient is under the care of [facility] Cardiology. Examination Category Sub-Category Detail Notes Category Not es Exam GENERAL APPEARANCE: More healthy appearing that past several visits Skin: Neurological: Skin Rash along nasal lab ial folds has drastically improved Eyes Ears Nose Wearing nasal cannul a Mouth [place] and mildly dry Trachea Midline Chest Normal [...]
--- OUTSIDE RECORDS SUMMARY | 2025-04-02 06:30 | XMS_ITS ---
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 [...] 04/02/2025 Critical illness myopathy (ICD-10 - G72.81) Hoks-aa-tjwr encounter performed with the patient to document [...] respiratory failure with hypoxia (ICD-10 - J96.11) Mfzc-wd-lwuf encounter performed with the patient to document [...] requiring O2. -Recommendations: Continue O2 ATC. 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 Compliance from 02/26/2025 - 03/27/2025 was reviewed. Doing awesome with NIV - despite hospitalization and rehab stint, she was still able to have her son bring in her NIV and she maintained excellent compliance at 28/30 days (93%). Residual AHI 4.1. No issues with mask, pressures, etc. No complaints of rash today. Critical illness myopathy Ycga-hf-lljd encounter performed with the patient to document [...] to manage. Chronic respiratory failure with hypoxia Slxe-sg-tijp encounter performed with the patient to document [...] of requiring O2. -Recommendations: Continue O2 ATC. custodial (current) use of i nhaled steroids Patient [...] Diana CHAMPION ADOB: 6 (69 yo F)Acc No.[id number]:04/02/2025 Follow Up Patient: Diana AMARAL Provider: Jona Lopes DO :1955 A ge:69 Y S ex:Female Date:04/02/2025 Address:[address] [place], [place] [address], [address], [place], [phone] Pcp:Kaylene López, PUBLIC HEALTH SERVICE OFFICER Check In:10:10 AM ESTCheck O ut:11:03 AM EST Subjective: * Chief Complaints: * 2 m F/U - COPD * HPI: G eneral: Patient was admitted to [facility] 03/11/2025 - 03/16/2025 for pneumonia - I saw her inpatient in consultation. She then went to [facility] for rehab and was discharged from there [...] medication. Patient is under the care of [facility] Cardiology. * ROS: G eneral/Constitutional: Fatigue [...] Z86.16 History of COVID-19 Modified On:12/12/2023 Z79.51 custodial (current) use of inhaled steroids Modified On:12/12/2023 [...] 07/02/2024 * Hospitalization/Major Diagno stic Procedure: C ovid-19-[facility] 04/10/2023Sepsis/Pneumonia-TB 4Pneumonia-TB 02/03/2024OPD Exacerbation-TB 4COPD Exacerbation-TB 06/07/2024Hospital Acquired Pneumonia-[facility] 08/08/2024OPD Exacerbation, pneumonia-[facility] 5Asthma/COPD Exacerbation-[facility] 5COVID & Pseudomonas pneumonia-[facility] 01/08/2025HCAP - [facility] 03/11/2025 * Family History: F ather: [...] alker, Wheelchair 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 [...] today. 3. C ritical illness myopathy Notes: Rkwb-pe-evnk encounter performed with the patient to document [...] C hronic respiratory failure with hypoxia Notes: Pqyf-te-wtfh encounter performed with the patient to document [...] of Medical Reason: N ot indicated B [place] ACTION PLAN Above Normal BMI Follow-up D ietary management education, guidance, and counseling R TC-Owtfbx-19/13/2023. * Follow Up: 3 Months (Reason: Dyspnea) * * Sign off status: Completed Visit Status: C HK (Check Out) true * Provider: Jona Lopes DO Date: 0 04/02/2025 Generated for Walter márquez/Suman/eTransmitting on: 0 07/08/2025 06:46 AM EDT History and Physical Notes * [...] medication. Patient is under the care of [facility] Cardiology. Examination Category Sub-Category Detail Notes Category Not es Exam GENERAL APPEARANCE: More healthy appearing that past several visits Skin: Neurological: Skin Rash along nasal lab ial folds has drastically improved Eyes Ears Nose Wearing nasal cannul a Mouth [place] and mildly dry Trachea Midline Chest Normal [...]
--- OUTSIDE RECORDS SUMMARY | 2025-05-01 09:00 | XMS_ITS ---
Author Organization [facility] in [place] Address [address] [place] [address] Care Team Providers Care Hotbed Operator Name Role Phone Brianceleste CLEO Kaylene Primary Care Provider Unavail able Corbin Lopes Unavailable [phone] Allergies No Known Allergies REASON FOR VISIT COPD Medications Medication SIG (Take, Route, Frequency, Duration) Notes Start Date End Date Status Mucinex 600 MG 1-2 tablets as needed for congestion Orally BID for 90 days Active buPROPion HCl ER (XL) 150 MG Oral for 30 Days Active Ohtuvayre 3 MG/2.5ML 2.5 mL Inhalation Twice a day for 90 days 04/02/2025 Active Doxycycline Hyclate 100 MG 1 tablet Orally BID for 10 days 05/01/2025 Active Sodium Chloride 0.9 % 3mL Inhalation TID for 90 days Active Clotrimazole 10 MG 1 neelima Mouth/Throat QID for 10 days Dissolve in mouth Dissolve in mouth 05/02/2023 Active Montelukast Sodium 10 MG 1 tablet Orally Once a day for 90 days Active Vitamin D3 25 MCG (1000 UT) 1 capsule Orally Once a day Active Fluticasone Propionate 50 MCG/ACT 2 squirts in each nostril Nasally QD for 90 days Dispense #3 bottles Active Baclofen 10 MG Oral for 30 Days Active Pramipexole Dihydrochloride 0.25 MG Oral for 30 Days Active Pregabalin 75 MG Oral for 30 Days Active traZODone HCl 100 MG 1 tablet at bedtime as needed Orally Once a day Active Trospium Chloride ER 60 MG Oral for 30 Days Active predniSONE 20 MG 3 tabs x 3 days, 2 tabs x 3 days, 1 tab x 3 days Orally Once a day for 9 days Take with food 05/01/2025 Active Omeprazole 20 MG 1 capsule 30 minutes before morning meal Orally BID Active Roxanntrhernandez Aerosphere 160-9-4.8 MCG/ACT 2 puffs Inhalation Twice a day for 90 days Rinse after use; Dispense #3 inhalers Patient has myopathy and unable to generate enough inspiratory force for dry powder inhalers 02/24/2025 Active Latanoprost 0.005 % INSTILL 1 DROP INTO EACH EYE AT BEDTIME Ophthalmic for 45 Days Active Albuterol Sulfate HFA 108 (90 Base) MCG/ACT 2 puffs as needed for SOB Inhalation every 4 hrs for 90 days Dispense #3 inhalers Active Magnesium Oxide 400 MG 1 tablet as needed Orally Once a day Active Iron 325 (65 Fe) MG 1 tablet Orally Every other day Active Albuterol Sulfate (2.5 MG/3ML) 0.083% 3mL Inhalation QID for 90 days Dispense #360 nebules Active Social History Tobacco Use: Social History Observation Description Date Details (start date - stop date) Never Smoker NA - NA Tobacco Control (Standard) Question Answer Notes Tobacco use: Nonsmoker Vital Signs Weight 236.0 lbs 05/01/2025 Height 61 in 05/01/2025 Blood pressure systolic 124 mm Hg 05/01/20 25 Blood pressure diastolic 75 mm Hg 025 Temperature 97.0 degrees Fahrenheit 05/01/20 25 Heart Rate 73 /min 05/01/2025 Respiratory Rate 20 /min 05/01/2025 BMI 44.59 kg/m2 05/01/2025 Oximetry 95 % 05/01/2025 Encounters Encounter Location Date Provider Diagnosis Pulmonary Medicine [address] [address] 05/01/2025 Corbin Lopes Chronic obstructive pulmonary disease J44.9 ; 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 ; Other pulmonary collapse J98.19 ; Chronic respiratory failure with hypoxia J96.11 ; Other secondary pulmonary hypertension I27.29 ; Allergic rhinitis J30.9 ; Oral candidiasis B37.0 ; 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 Increasing rhonchi on exam, likely exacerbated by the heat wave. Does not appear acutely ill. Discussed it is imperative that she keep up with her pulmonary toilet. [facility] Pulmonology practice will be permanently closing. Refilling all medications today. As it will be several months until I would be able to see her again elsewhere, prescribing prednisone and antibiotics in case she has a flare and is unable to reach anyone. 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 -Use of vest twice daily: Yes -Improvement of mobilization and clearance of secretions: Improved -Amplitude/frequen cy of oscillations tolerable: Yes -Continues to use nebulized saline: Yes -Continues to use PEP device: Yes -Recommendations: Continue PEP, saline nebs, NIV, and vest. 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 Discussed if she develops a rash again on the face to try Selsun Blue. 05/01/2025 Chronic respiratory failure with hypoxia (ICD-10 - J96.11) Krih-ah-tsps encounter performed with the patient to document continued need for supplemental oxygen (O2). -Flow & directions: 2-3L/min ATC POC -Patient voices adherence to recommended usage: Yes -Symptom control on O2: Better with O2. -Counseled patient not begin, restart, or continue [...] to the point of requiring O2. -Recommendations: Continues to have benefit with O2. 05/01/2025 Other secondary pulmonary hypertension (ICD-10 - I27.29) January 2025 echo - RVSP 63mmHg. F/U with cardiology. 05/01/2025 Allergic rhinitis (ICD-10 - J30.9) Continue Flonase and Singulair. 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 05/01/2025 Morbid (severe) obesity due to excess calories (ICD-10 - E66.01) Patient's weight is inducing a restrictive pulmonary physiology. Weight loss indicated: Decrease calories, increase activity. 05/01/2025 History of COVID-19 (ICD-10 - Z86.16) 04/04/2023: Severe associated hypoxic respiratory failure 05/01/2025 Other As above, suggested patient scrub her face twice daily with Selsun Blue. Any further treatment, follow-up with PCP. Plan Of Treatment Medication Medication Name Sig Start Date Stop Date Notes Mucinex 600 MG 1-2 tablets as needed for congestion Orally BID for 90 days Ohtuvayre 3 MG/2.5ML 2.5 mL Inhalation Twice a day for 90 days 04/02/2025 Doxycycline Hyclate 100 MG 1 tablet Orally BID for 10 days 05/01/2025 Sodium Chloride 0.9 % 3mL Inhalation TID for 90 days Clotrimazole 10 MG 1 neelima Mouth/Throat QID for 10 days 05/02/2023 Dissolve in mouth Montelukast Sodium 10 MG 1 tablet Orally Once a day for 90 days Fluticasone Propionate 50 MCG/ACT 2 squirts in each nostril Nasally QD for 90 days predniSONE 20 MG 3 tabs x 3 days, 2 tabs x 3 days, 1 tab x 3 days Orally Once a day for 9 days 05/01/2025 Breztri Aerosphere 160-9-4.8 MCG/ACT 2 puffs Inhalation Twice a day for 90 days 02/24/2025 Patient has myopathy and unable to generate enough inspiratory force for dry powder inhalers Albuterol Sulfate HFA 108 (90 Base) MCG/ACT 2 puffs as needed for SOB Inhalation every 4 hrs for 90 days Albuterol Sulfate (2.5 MG/3ML) 0.083% 3mL Inhalation QID for 90 days Treatment Notes Assessment Notes Chronic obstructive pulmonary disease Prior treatment: Breztri > Trelegy 200 > Trelegy 100 > Breo 100 > Spiriva > albuterol > Atrovent Continues to have benefit with Breztr + Aerochamber over Trelegy - more relief of dyspnea without developing oral candidiasis. Increasing rhonchi on exam, likely exacerbated by the heat wave. Does not appear acutely ill. Discussed it is imperative that she keep up with her pulmonary toilet. [facility] Pulmonology practice will be permanently closing. Refilling all medications today. As it will be several months until I would be able to see her again elsewhere, prescribing prednisone and antibiotics in case she has a flare and is unable to reach anyone. Critical illness myopathy Qqdt-wp-xuxx encounter performed with the patient to document continued need for a high frequency chest wall oscillation (vest) device. -Use of vest twice daily: Yes -Improvement of mobilization and clearance of secretions: Improved -Amplitude/frequency of oscillations tolerable: Yes -Continues to use nebulized saline: Yes -Continues to use PEP device: Yes -Recommendations: Continue PEP, saline nebs, NIV, and vest. 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 Discussed if she develops a rash again on the face to try Selsun Blue. Chronic respiratory failure with hypoxia Hrnz-qy-odfx encounter performed with the patient to document continued need for supplemental oxygen (O2). -Flow & directions: 2-3L/min ATC POC -Patient voices adherence to recommended usage: Yes -Symptom control on O2: Better with O2. -Counseled patient not begin, restart, or continue [...] to the point of requiring O2. -Recommendations: Continues to have benefit with O2. Other secondary pulmonary hypertension January 2025 echo - RVSP 63mmHg. F/U with cardiology. Allergic rhinitis Continue Flonase and Singulair. Oral candidiasis Refill of clotrimazole sent in just in case snf (current) use of i nhaled steroids Patient [...] with PCP. Next Appt Details Follow Up: 4 Months, Reason: COPD Procedure Notes * Category Sub-Category Detail Notes [...] Diana CHAMPION ADOB: 6 (69 yo F)Acc No.[id number]:05/01/2025 Follow Up Patient: Diana AMARAL Provider: Jona Lopes DO :1955 A ge:69 Y S ex:Female Date:05/01/2025 Address:[address] [place] [address] [address], [address], [phone] Pcp:Kaylene López, ACUTE CARE SURGEON Check In:12:46 PM ESTCheck O ut:01:17 PM EST Subjective: * Chief Complaints: * C OPD * HPI: G eneral: She is doing okay since last visit. She feels the therapy from being at the [facility] for several weeks helped to improve her strength. The recent heat this past week (90'F+) is beginning to cause her to have increased congestion. She denies any fevers, chills, or sweats. Sputum production has increased some and is pale green in color. It is not foul smelling. Denies any hemoptysis. She denies any oral candidiasis - uses Breztri with aerochamber - has not had any issues with candididasis since changing from [facility]. [place] Intake Comments:. Patient presents for a follow-up for COPD. Patient is currently on 3L O2/NIV at home. DME:[facility]. Patient is using her vest, nebulizer & inhalers daily with benefit. Patient states her breathing is unchanged since her last visit. [facility]. Patient denies any complaints or concerns with NIV/Nebulizer machine. * ROS: G eneral/Constitutional: Fatigue c hronic. [...] C ough d aily productive cough - increased production, pale green. H emoptysis d enies. 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 Modified On:12/12/2023 E66.01 Morbid (severe) obes ity due to excess calories Modified On:12/12/2023 R91.8 Multiple pulmonary n odules Modified On:12/12/2023 J98.19 Other pulmonary jia apse Modified On:02/14/2024 I27.29 Other secondary pulm onary hypertension Modified On:07/31/2023 G25.81 Restless leg syndrom e Modified On:12/12/2023 Z68.41 Body mass index [BMI ] 40.0-44.9, adult Modified On:06/12/2024W/U Status:confirmed J45.901 Asthma with acute ex acerbation Modified On:04/08/2025/U Status:confirmed M48.061 Lumbar stenosis Modified On:04/08/2025/U Status:confirmed F32.9 Depression Modified On:04/08/2025/U Status:confirmed * Medical History: * Surgical History: s gema fusion Cardiac Catheterization tubal ligation Right Foot Surgery right knee replacement left hip replacement Bronchoscopy- 07/02/2024 * Hospitalization/Major Diagno stic Procedure: C ovid-19-[facility] 04/10/2023Sepsis/Pneumonia-[facility] 11/25/2023neumonia-[facility] 02/03/2024OPD Exacerbation-TB 04/11/2024OPD Exacerbation-[facility] 06/07/2024Hospital Acquired Pneumonia-[facility] 08/08/2024OPD Exacerbation, pneumonia-[facility] 11/12/2024sthma/COPD Exacerbation-[facility] 01/02/2025OVID & Pseudomonas pneumonia-[facility] 01/08/2025HCAP - [facility] 03/11/2025 * Family History: F ather: [...] alker, Wheelchair 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 D rugs/Alcohol: D rugs H [...] needed for SOB Inhalation every 4 hrs Baclofen 10 MG Tablet Oral Breztri Aerosphere(Rwqrokx-Jzbrgdqlcpf-Xnrudshspq) 160-9-4.8 MCG/ACT Aerosol 2 puffs Inhalation Twice a day Rinse after use, Notes to Pharmacist: Patient has myopathy and unable to generate enough inspiratory force for dry powder inhalersbuPROPion HCl ER (XL) 150 MG Tablet Extended Release 24 Hour Oral Clotrimazole 10 MG Neelima 1 neelima Mouth/Throat [...] Capsule 1 capsule Orally Once a day Medication List reviewed and reconciled with the patientTaking Albuterol Sulfate (2.5 MG/3ML) 0.083% Nebulization Solution 3mL Inhalation QID Dispense #360 nebulesTaking Albuterol Sulfate HFA 108 (90 Base) MCG/ACT Aerosol Solution 2 puffs as needed for SOB Inhalation every 4 hrs Taking Baclofen 10 MG Tablet Oral Taking Breztri Aerosphere(Gogvogy-Dnwmjgtdpom-Bnjzoyqnhn) 160-9-4.8 MCG/ACT Aerosol 2 puffs Inhalation Twice a day Rinse after use, Notes to Pharmacist: Patient has myopathy and unable to generate enough inspiratory force for dry powder inhalersTaking buPROPion HCl ER (XL) 150 MG Tablet Extended Release 24 Hour Oral Taking Clotrimazole 10 MG Neelima 1 neelima [...] Capsule 1 capsule Orally Once a day Medication List reviewed and reconciled with the patient * Allergies: N .K.D.A.no[Allergies Verified] Objective: * Vitals: W t:236.0lbs, Ht: 61 in, BP:sittin/75mm Hg, Temp:Forehead:97.0F, HR:73/min, RR:20/min, BMI:44.59Index, Oxygen sat %:Oxygen 3l:95%, Ht-cm: 154.94 cm, Wt-k.05 kg. * Examination: E xam: GENERAL APPEARANCE: D oes not appear to be in any acute distress. Has more moist breathing crackles today. Skin N o nasal labial fold rash today. Nose W earing nasal cannula. Mouth P ink and mildly dry. Oropharynx/Tongue M allampati Class III. No candidiasis. Trachea M idline. Chest N ormal. Respiratory N ormal Movements. Auscultation I ncreased diffuse rhonchi. No wheezes.? Fremitus M ild tactile fremitus. Cardiac R egular rate and rhythm. Gastrointestinal N ormal. Vascular N o edema. Musculoskeletal I n wheelchair. Neurological F ocal, intact. Psychiatric A lert and oriented x3. Mentation/Cognition N ormal. Assessment: * Assessment: 1. C hronic obstructive pulmonary disease - J44.9 (Primary) 2 . C ritical illness myopathy - G72.81 3 . O ther pulmonary collapse - J98.19 N otes :Dynamic airway collapse 4 . C hronic respiratory failure with hypoxia - J96.11 5 . Other secondary pulmonary hypertension - I27.29 6 . A llergic rhinitis - J30.9? 7. O ral candidiasis - B37.0 8 . L myla term (current) use of inhaled steroids - Z79.51 9 . M orbid (severe) obesity due to excess calories - E66.01 1 0. H istory of COVID-19 - Z86.16 N otes :04/04/2023: Severe associated hypoxic respiratory failure Plan: * Treatment: 2. C ritical illness myopathy Notes: Uwov-sn-bigp encounter performed with the patient to document continued need for a high frequency chest wall oscillation (vest) device. -Use of vest twice daily: Yes -Improvement of mobilization and clearance of secretions: Improved -Amplitude/frequency of oscillations tolerable: Yes -Continues to use nebulized saline: Yes -Continues to use PEP device: Yes -Recommendations: Continue PEP, saline nebs, NIV, and vest. 3. 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 Discussed if she develops a rash again on the face to try Selsun Blue. 4. C hronic respiratory failure with hypoxia Notes: Iqqq-ko-sdmb encounter performed with the patient to document continued need for supplemental oxygen (O2). -Flow & directions: 2-3L/min ATC POC -Patient voices adherence to recommended usage: Yes -Symptom control on O2: Better with O2. -Counseled patient not begin, restart, or continue [...] to the point of requiring O2. -Recommendations: Continues to have benefit with O2. 5. O ther secondary pulmonary hypertension Notes: January 2025 echo - RVSP 63mmHg. F/U with cardiology. 6. A llergic rhinitis Refill Fluticasone Propionate Suspension, 50 MCG/ACT, 2 squirts in each nostril, Nasally, QD Dispense #3 bottles, 90 days, 3 each, Refills 4; R efill Montelukast Sodium Tablet, 10 MG, 1 tablet, Orally, Once a day, 90 days, 90 Tablet, Refills 4. Notes: Continue Flonase and Singulair. 7. O ral candidiasis Refill Clotrimazole Neelima, 10 MG, 1 neelima, Mouth/Throat, QID Dissolve in mouth, 10 days, 40, Refills 12, Notes to Pharmacist: Dissolve in mouth. Notes: Refill of clotrimazole sent in just in case 8. L myla term (current) use of inhaled steroids Notes: Patient was counseled to rinse & gargle with water after inhaled corticosteroid use. 9. M orbid (severe) obesity due to excess calories Notes: Patient's weight is inducing a restrictive pulmonary physiology. Weight loss indicated: Decrease calories, increase activity. 10. O thers Notes: As above, suggested patient [...] had COVID Vaccination? COVID Vaccination Y es 09/20/2024 Immunization Status: P neumovacc P revnar 20- 08/09/2023. I nfluenza 1 11/06/2023. Z ostivax 1 01/02/2022. Screenings/Counseling: F ALL RISK SCREENING Fall Risk Assessment: N o falls in the past year Are you afraid of falling? N o T OBACCO ACTION PLAN Exclusion: M edical Reason Non Smoker Type of Medical Reason: N ot indicated B MS ACTION PLAN Above Normal BMI Follow-up D ietary management education, guidance, and counseling R LU-Jkewgo-75/13/2023. * Follow Up: 4 Months (Reason: COPD) * * Sign off status: Completed Visit Status: C HK (Check Out) true * Provider: Jona Lopes DO Date: 05/01/2025 Generated for Walter márquez/Suman/Dulceitting on: 07/08/2025 06:45 AM EDT History and Physical Notes * HPI (History of Present Illness) Category Sub-Category Detail Notes Category Not es General Patient present s for a follow-up for COPD. Patient is currently on 3L O2/NIV at home. DME:[facility]. Patient is using her vest, nebulizer & inhalers daily with benefit. Patient states her breathing is unchanged since her last visit. [facility]. Patient denies any complaints or concerns with NIV/Nebulizer machine. Examination Category Sub-Category Detail Notes Category Not es Exam GENERAL APPEARANCE: Does not qamar ear to be in any acute distress. Has more moist breathing crackles today Skin: Neurological: Skin No nasal labial fold rash today Eyes Ears Nose Wearing nasal cannul a Mouth [place] and mildly dry Trachea Midline Chest Normal Respiratory Normal Movements Auscultation Increased diffuse rh onchi. No wheezes Percussion Egophony Bronchophony Fremitus Mild tactile fremitu s Whispered pectoriloquy Cardiac Regular rate and rhy thm Gastrointestinal Normal Vascular No edema Musculoskeletal In wheelchair Neurological Focal, intact Psychiatric Alert and oriented x 3 Mentation/Cognition Normal Oropharynx/Tongue Mallampati Class III . No candidiasis
--- OUTSIDE RECORDS SUMMARY | 2025-05-01 09:00 | XMS_ITS ---
Author Organization [facility] in [place] Address [address] [place] [address] Care Team Providers Care Supervisor Joiners Name Role Phone Brianceleste CLEO Kaylene Primary Care Provider Unavail able Corbin Lopes Unavailable [phone] Allergies No Known Allergies REASON FOR VISIT [...] Notes Tobacco use: Nonsmoker Vital Signs Temperature 97.0 degrees Fahrenheit 05/01/20 25 Blood pressure systolic 124 mm Hg 05/01/20 25 Blood pressure diastolic 75 mm Hg 025 Heart Rate 73 /min 05/01/2025 Respiratory Rate 20 /min 05/01/2025 Height 61 in 05/01/2025 Weight 236.0 lbs 05/01/2025 BMI 44.59 kg/m2 05/01/2025 Oximetry 95 % 05/01/2025 Encounters Encounter Location Date Provider Diagnosis Pulmonary Medicine [address] [address] 05/01/2025 Corbin Lopes Chronic obstructive pulmonary disease J44.9 ; 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 [facility] Pulmonology practice will be permanently closing. Refilling all medications today. As it will be several months until I would be able to see her again elsewhere, prescribing prednisone and antibiotics in case she has a flare and is unable to reach anyone. 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 [facility] Pulmonology practice will be permanently closing. Refilling all medications today. As it will be several months until I would be able to see her again elsewhere, prescribing prednisone and antibiotics in case she has a flare and is unable to reach anyone. Critical illness myopathy Cdch-pq-vmzx encounter performed with the patient to document [...] Selsun Blue. Chronic respiratory failure with hypoxia Zoog-wz-zduh encounter performed with the patient to document [...] of clotrimazole sent in just in case [facility] (current) use of i nhaled steroids Patient [...] Diana CHAMPION ADOB: 6 (69 yo F)Acc No.[id number]:05/01/2025 Follow Up Patient: Diana AMARAL Provider: Jona Lopes DO :1955 A ge:69 Y S ex:Female Date:05/01/2025 Address:[address] [place] [address] [address], [address], [id number] Pcp:Kaylene López, BREAKING MACHINE OPERATOR Check In:12:46 PM ESTCheck O ut:01:17 PM [...] any issues with candididasis since changing from [facility]. [place] Intake Comments:. Patient presents for a follow-up for COPD. Patient is currently on 3L O2/NIV at home. DME:[facility]. Patient is using her vest, nebulizer & inhalers daily with benefit. Patient states her breathing is unchanged since her last visit. Patient is under the care of [facility] Cardiology. 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 Modified [...] * Hospitalization/Major Diagno stic Procedure: C ovid-19-[facility] 04/10/2023Sepsis/Pneumonia-TB 11/25/2023neumonia-[facility] 02/03/2024OPD Exacerbation-TB 04/11/2024OPD Exacerbation-[facility] 06/07/2024Hospital Acquired Pneumonia-[facility] 08/08/2024OPD Exacerbation, pneumonia-[facility] 11/12/2024sthma/COPD Exacerbation-[facility] 01/02/2025OVID & Pseudomonas pneumonia-[facility] 01/08/2025HCAP - [facility] 03/11/2025 * Family History: F ather: [...] alker, Wheelchair 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 D rugs/Alcohol: D rugs H [...] hrs Baclofen 10 MG Tablet Oral Breztri Aerosphere(Chixkys-Uahyyboxhtw-Ztcpzzrdpo) 160-9-4.8 MCG/ACT Aerosol 2 puffs Inhalation Twice [...] Baclofen 10 MG Tablet Oral Taking Breztri Aerosphere(Wqcozge-Xmqoiihxopv-Yjdwkiixsz) 160-9-4.8 MCG/ACT Aerosol 2 puffs Inhalation Twice [...] Treatment: 2. C ritical illness myopathy Notes: Tbxb-qd-vkpv encounter performed with the patient to document [...] C hronic respiratory failure with hypoxia Notes: Nkzt-rx-kbzv encounter performed with the patient to document [...] of Medical Reason: N ot indicated B [place] ACTION PLAN Above Normal BMI Follow-up D ietary management education, guidance, and counseling R DU-Kxyjvs-21/13/2023. * Follow Up: 4 Months (Reason: COPD) * * Sign off status: Completed Visit Status: C HK (Check Out) true * Provider: Jona Lopes DO Date: 05/01/2025 Generated for Walter márquez/Suman/Dulceitting on: 0 07/10/2025 12:41 AM EDT History and Physical Notes * [...] visit. Patient is under the care of [facility] Cardiology. Patient denies any complaints or concerns with NIV/Nebulizer machine. Examination Category Sub-Category Detail Notes Category Not es Exam GENERAL APPEARANCE: Does not qamar ear to be in any acute distress. Has more moist breathing crackles today Skin: Neurological: Skin No nasal labial fold rash today Eyes Ears Nose Wearing nasal cannul a Mouth [place] and mildly dry Trachea Midline Chest Normal [...]
--- OUTSIDE RECORDS SUMMARY | 2025-05-01 09:00 | XMS_ITS ---
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 [facility] Pulmonology practice will be permanently closing. Refilling all medications today. As it will be several months until I would be able to see her again elsewhere, prescribing prednisone and antibiotics in case she has a flare and is unable to reach anyone. 05/01/2025 Critical illness myopathy (ICD-10 - G72.81) Kjps-gt-nkkv encounter performed with the patient to document [...] respiratory failure with hypoxia (ICD-10 - J96.11) Ptnv-dk-uyfp encounter performed with the patient to document [...] clotrimazole sent in just in case 05/01/2025 [facility] (current) use of inhaled steroids (ICD-10 - [...] she keep up with her pulmonary toilet. [facility] Pulmonology practice will be permanently closing. Refilling all medications today. As it will be several months until I would be able to see her again elsewhere, prescribing prednisone and antibiotics in case she has a flare and is unable to reach anyone. Critical illness myopathy Vuri-ju-nusg encounter performed with the patient to document [...] Selsun Blue. 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 [place] Intake Comments:. Patient presents for a follow-up for COPD. Patient is currently on 3L O2/NIV at home. DME:[facility]. Patient is using her vest, nebulizer & inhalers daily with benefit. Patient states her breathing is unchanged since her last visit. Patient is under the care of [facility] [[email or web address] Cardiology. 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 Modified On:12/12/2023 [...] 07/02/2024 * Hospitalization/Major Diagno stic Procedure: C ovid-19-[facility] 04/10/2023Sepsis/Pneumonia-TB 11/25/2023neumonia-[facility] 02/03/2024OPD Exacerbation-TB 04/11/2024OPD Exacerbation-[facility] 06/07/2024Hospital Acquired Pneumonia-[facility] 08/08/2024OPD Exacerbation, pneumonia-[facility] 11/12/2024sthma/COPD Exacerbation-[facility] 01/02/2025OVID & Pseudomonas pneumonia-[facility] 01/08/2025HCAP - [facility] 03/11/2025 * Family History: F ather: [...] alker, Wheelchair 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 D rugs/Alcohol: D rugs H [...] hrs Baclofen 10 MG Tablet Oral Breztri Aerosphere(Zoqoevf-Klcfskrytdh-Ejxbdbzlcg) 160-9-4.8 MCG/ACT Aerosol 2 puffs Inhalation Twice [...] Baclofen 10 MG Tablet Oral Taking Breztri Aerosphere(Zbmpwsn-Dxjxxnqdvup-Dyommzvgyo) 160-9-4.8 MCG/ACT Aerosol 2 puffs Inhalation Twice [...] Treatment: 2. C ritical illness myopathy Notes: Pbwg-ov-umwa encounter performed with the patient to document [...] C hronic respiratory failure with hypoxia Notes: Kcdh-ui-lcdf encounter performed with the patient to document [...] of Medical Reason: N ot indicated B [place] ACTION PLAN Above Normal BMI Follow-up D ietary management education, guidance, and counseling R MH-Ymiboq-59/13/2023. * Follow Up: 4 Months (Reason: COPD) * * Sign off status: Completed Visit Status: C HK (Check Out) true * Provider: Jona Lopes DO Date: 05/01/2025 Generated for Walter márquez/Suman/Dulceitting on: 07/05/2025 03:15 PM EDT History and Physical Notes * [...] visit. Patient is under the care of [facility] [[email or web address] Cardiology. Patient denies any complaints or concerns with NIV/Nebulizer machine. Examination Category Sub-Category Detail Notes Category Not es Exam GENERAL APPEARANCE: Does not qamar ear to be in any acute distress. Has more moist breathing crackles today Skin: Neurological: Skin No nasal labial fold rash today Eyes Ears Nose Wearing nasal cannul a Mouth [place] and mildly dry Trachea Midline Chest Normal [...]
--- OUTSIDE RECORDS SUMMARY | 2025-06-16 11:06 | XMS_ITS ---
Author Organization The [facility] in [place] Address [address] [place] [address] Care Team Providers Care Casing Runner Name Role Phone Rene CLEOKaylene Primary Care Provider Corbin Garcia Unavailable [phone] REASON FOR VISIT Letter Encounters Encounter Location Date Provider Diagnosis Pulmonary Medicine [place] [address] [place] [address] 06/16/2025 Corbin Lopes Plan Of Treatment No Information Progress Notes * CHAMPION, Diana ADOB: [birth year] (69 yo F)Acc No.[id number]:06/16/2025 Patient: Diana AMARAL :1955 A ge:69 Y S ex:Female Address:[address], [address], [place], [address] * true * Date: Generated for Walter márquez/Suman/eTransmitting on: 0 07/08/2025 06:45 AM EDT
--- OUTSIDE RECORDS SUMMARY | 2025-06-16 11:06 | XMS_ITS ---
Author Organization [facility] in [place] Address [address] [place] [address] Care Team Providers Care Welt Drawer Name Role Phone Rene CLEOKaylene Primary Care Provider Corbin Garcia Unavailable [phone] REASON FOR VISIT Letter Encounters Encounter Location Date Provider Diagnosis Pulmonary Medicine [place] [address] [place] [address] 06/16/2025 Corbin Lopes Plan Of Treatment No Information Progress Notes * CHAMPION, Diana ADOB: [birth year] (69 yo F)Acc No.[id number]:06/16/2025 Patient: Diana AMARAL :1955 A ge:69 Y S ex:Female Address:[address], [address], [place], [address] * true * Date: Generated for Walter márquez/Fadianeg/eTransmitting on: 0 07/05/2025 03:15 PM EDT
--- OUTSIDE RECORDS SUMMARY | 2025-06-16 11:06 | XMS_ITS ---
Author Organization [facility] in [place] Address [address] [place] [address] Care Team Providers Care Frozen Meat Cutter Name Role Phone Rene CLEOKaylene Primary Care Provider Corbin Garcia Unavailable [phone] REASON FOR VISIT Letter Encounters Encounter Location Date Provider Diagnosis Pulmonary Medicine [place] [address] [place] [address] 06/16/2025 Corbin Lopes Plan Of Treatment No Information Progress Notes * CHAMPION, Diana ADOB: [birth year] (69 yo F)Acc No.[id number]:06/16/2025 Patient: Diana AMARAL :1955 A ge:69 Y S ex:Female Address:[address], [address], [place], [address] * true * Date: Generated for Walter márquez/Suman/eTransmitting on: 0 07/10/2025 12:41 AM EDT
--- OUTSIDE RECORDS SUMMARY | 2025-07-02 06:30 | XMS_ITS ---
Author Organization The [facility] in [place] Address [address] [place] [address] Care Team Providers Care Vegetable Farm Manager Name Role Phone Kaylene López CNP Primary Care Provider Unavail Corbin Garcia Unavailable [phone] REASON FOR VISIT 3m F/U - COPD Encounters Encounter Location Date Provider Diagnosis Pulmonary Medicine [address] [address] 07/02/2025 Corbin Lopes Plan Of Treatment No Information Progress Notes * Diana CHAMPION ADOB: (69 yo F)Acc No.[id number]:07/02/2025 UNLOCKED PROGRESS NOTE Follow Up Patient: Diana AMARAL Provider: Jona Lopes DO :1955 A ge:69 Y S ex:Female Date:07/02/2025 Address:[address] [place] [address], [address], [place], [id number] Pcp:Kaylene López CNP Subjective: * Chief Complaints: * 1 . 3m F/U - COPD. * Medical History: Objective: * Vitals: Assessment: Plan: * Treatment: * * Electronic signature of [place] Carmen Lopes DO on 07/08/2025 at 06:45 AM EDT Sign off status: Pending Visit Status: O FF CANC (OFFICE CANCEL) * Provider: Jona Lopes DO Date: 0 07/02/2025 Generated for Walter márquez/Suman/Franck on: 0 07/08/2025 06:45 AM EDT
--- OUTSIDE RECORDS SUMMARY | 2025-07-02 06:30 | XMS_ITS ---
Author Organization The [facility] in [place] Address [address] [place] [address] Care Team Providers Care Housekeeping Laundry Worker Name Role Phone Kaylene López CNP Primary Care Provider Unavail Corbin Garcia Unavailable [phone] REASON FOR VISIT 3m F/U - COPD Encounters Encounter Location Date Provider Diagnosis Pulmonary Medicine [address] [address] 07/02/2025 Corbin Lopes Plan Of Treatment No Information Progress Notes * Diana CHAMPION ADOB: (69 yo F)Acc No.[id number]:07/02/2025 UNLOCKED PROGRESS NOTE Follow Up Patient: Diana AMARAL Provider: Jona Lopes DO :1955 A ge:69 Y S ex:Female Date:07/02/2025 Address:[address] [place] [address], [address], [place], [phone] Pcp:Kaylene López CNP Subjective: * Chief Complaints: * 1 . 3m F/U - COPD. * Medical History: Objective: * Vitals: Assessment: Plan: * Treatment: * * Electronic signature of [place] Del Carmen Lopes DO on 07/10/2025 at 12:40 AM EDT Sign off status: Pending Visit Status: O FF CANC (OFFICE CANCEL) * Provider: Jona Lopes DO Date: 0 07/02/2025 Generated for Walter márquez/Suman/Franck on: 0 07/10/2025 12:40 AM EDT
[2025-07-05] VITALS (42 sets, daily range): BP systolic 130–172; BP diastolic 68–93; PULSE 74–100; TEMP 37.5–37.6; O2SAT 79–97; BMI 40.5; BMI 41.6
--- OUTSIDE RECORDS SUMMARY | 2025-07-05 15:15 | XMS_ITS | Encounter Summary ---
Author Organization [facility] Address [address] [place] [address] Care Team Providers Care Civilian Technician Name Role Phone Ariella Mathis DO Unavailable [phone] Tapan Barboza MD Primary Care Provider [phone] Mae Reese RAILROAD CAR REPAIR SUPERVISOR Unavailable [phone] Encounter Details Date Type Department Care Team (Late st Contact Info) Description 05/12/2025 Abstract [facility] [address] [place] [place] [address] Kaylene López NP [address] [place] [address] Social History Tobacco Use Types Packs/Day Years [...] How often do you attend chur or cheondoism services? More than 4 times per year [...] Patient Health Questionnaire-2 Score 0 07/11/2024 [facility] - [...] any time in the past 12 m [facility], were you homeless or living in [...] Care Team (Late st Contact Info) Description 07/16/2025 2:45 PM EDT Office Visit [facility] [place] [facility] [address] [place] [address] Denise Lazo MD [address] [place] [address] 07/17/2025 9:00 AM EDT Office Visit [facility] [address] [place] [address] Kaylene López NP [address] [place] [address] 12/15/2026 9:00 AM EST Office Visit [facility] [address] [place] [address] Yuri Bowers PA [address] [place] [address] documented as of this encounter Goals Goal [...] documented as of this encounter Care Teams Civilian Technician Relationship Specialty Start Date End Date Tapan Barboza MD [address] [place] [address] PCP - General Family Medicine 06/10/24 Ariella Mathis DO [address] [place] [address] Referring Physician Neurology 01/02/24 Mae Reese NP [address] [place] [address] Nurse Practitioner Family Medicine 06/10/24 documented as of this encounter
--- OUTSIDE RECORDS SUMMARY | 2025-07-05 15:15 | XMS_ITS | Encounter Summary ---
Author Organization [facility] Address [facility] [place] [address] Care Team Providers Care Neurosurgery Spine Physician Name Role Phone Unavailable Primary Care Provider Unavailabl e Source Comments In the event this information is protected by the Federal Confidentiality of Alcohol and Drug AbusePatient Records regulations: The Federal rules restrict any use of the information to criminally investigate or prosecute any alcohol or drug abuse patient.[facility] Encounter Details Date Type Department Care Team (Late st Contact Info) Description 2021 [place] [address] Provider, f Medicare Coverage of Physical Exams [...] N ot on file 01/20/2021 Data from: https://www.neighborhoodatlas.medicine.[facility].edu/. Last address used for calculation Not on [...]
--- OUTSIDE RECORDS SUMMARY | 2025-07-05 15:15 | XMS_ITS | Encounter Summary ---
Author Organization [facility] Address [address] [place] [address] Care Team Providers Care Clock Repairer Name Role Phone Unavailable Primary Care Provider Unavailabl e Source Comments In the event this information is protected by the Federal Confidentiality of Alcohol and Drug AbusePatient Records regulations: The Federal rules restrict any use of the information to criminally investigate or prosecute any alcohol or drug abuse patient.[facility] Encounter Details Date Type Department Care [...]
--- OUTSIDE RECORDS SUMMARY | 2025-07-05 15:15 | XMS_ITS | Encounter Summary ---
Author Organization [facility] Address [address] [place] [address] Care Team Providers Care Flooring Grader Name Role Phone Shaikh BONNY Ohara Primary Care Provider [phone] Ariella Mathis DO Unavailable [phone] Tapan Barboza MD Primary Care Provider [phone] Mae Reese WEB PRESS OPERATOR APPRENTICE Unavailable [phone] Encounter Details Date Type Department Care Team (Late st Contact Info) Description 01/26/2024 Clinisync Result Encounter [facility] External Department Unsolicited Shaikh Ohara MD [address] [place] [id number] Social History Tobacco Use Types Packs/Day Years [...] week 10/26/2023 How often do you attend [facility] or jain services? More than 4 times per year 10/26/2023 Do you belong to any clubs o r organizations such as sikh groups, unions, fraternal or athletic groups, or [...] Recorded Patient Health Questionnaire-2 Score 0 01/25/2024 [facility] - Occupational Stress [...] place to sleep or slept in a penitentiary (including now)? No 10/26/2023 Comments Unknown Sex and Gender Information Value Date Recorded Sex Assigned at Not on file Legal Sex Female 7:03 PM EDT Gender Identity Not on file Sexual Orientation Not on file documented as of this encounter Plan of Treatment Upcoming Encounters Date Type Department Care Team (Late st Contact Info) Description 07/16/2025 2:45 PM EDT Office [facility] [address] [place] [address] Denise Lazo MD [address] [place] [address] 07/17/2025 9:00 AM EDT Office Visit [facility] [address] [place] [address] Kaylene López, RIKKI [address] [place] [address] 12/15/2026 9:00 AM EST Office [facility] [address] [address] Yuri Bowers PA [address] [address] documented as of this encounter Procedures Procedure Name Priority Date/Time Associated Diagnosis Comments XR LUMBAR SPINE 2 OR 3V 01/26/2024 7:39 AM EDT documented in this encounter Results * XR LUMBAR SPINE 2 OR 3V (01/26/2024 7:39 AM EDT) Anatomical Region Laterality Modality Radiographic Melania ging 01/26/2024 7:39 AM EDT Narrative 01/26/2024 7:41 [place] [address] XRay Report Signed Patient: DIANA CHAMPION MR#: [id number] : 1955 Acct:[id number] Age/Sex: 68 / F ADM Date: 01/25/24 Loc: [facility] Attending Dr: Shaikh Lev Velasquez Ordering Physician: Shaikh Eva Ohara Date of Service: 01/25/24 Procedure(s): XR lumbar spine 2-3V Accession Number(s): [id number] cc: Shaikh Eva Ohara [address] [address] Patient Name: DIANA CHAMPION MRN: [id number] date: 1955 Sex: F Assigned Patient Location: RAD Current Patient Location: Accession/Order Number: [id number] Exam Date: 01/25/2024 12:50 Report Date: 01/26/2024 [...] Signed By: 01/26/24 0741 DD/ 0739 TD/TT: Doctor Of Optometry: Procedure Note Radiology, Radiologist, MD - 01/26/2024 [place] [address] XRay Report Signed Patient: DIANA CHAMPION AMR#: [id number] : 1955cct:[id number] Age/Sex: 68 / FADM Date: 01/25/24 Loc: [facility] Attending Dr: Shaikh Lev Velasquez Ordering Physician: Shaikh Eva Ohara Date of Service: 01/25/24 Procedure(s): XR lumbar spine 2-3V Accession Number(s): [id number] cc: Shaikh Eva Ohara The [address] [address] Patient Name: DIANA CHAMPION MRN: [id number] date: 1955 Sex: F Assigned Patient Location: [facility] Current Patient Location: Accession/Order Number: [id number] Exam Date: 01/25/2024 12:50 Report Date: 01/26/2024 [...] M.D. Signed By:01/26/24 0741 DD/ 0739 TD/TT: Doctor Of Optometry: us Shaikh Lev DRAPER IMG XR PROCEDURES Final Result documented in this encounter Visit Diagnoses Not on filedocumented in this encounter Additional Health Concerns Assessment Noted Time PHQ-9 Depression Total Score: 7 11/02/20 23 3:03 PM EST documented as of this encounter Care Teams Flooring Grader Relationship Specialty Start Date End Date Shaikh Ohara MD [address] [place] [address] PCP - General Internal Medicine 12/28/23 06/09/24 Tapan Barboza MD [address] [place] [address] PCP - General Family Medicine 06/10/24 Ariella Mathis DO [address] [place] [address] Referring Physician Neurology 01/02/24 Mae Reese NP [address] [place] [address] Nurse Practitioner Family Medicine 06/10/24 documented as of this encounter
--- OUTSIDE RECORDS SUMMARY | 2025-07-05 15:15 | XMS_ITS | Clinical Summary ---
Author Organization [facility] Address [facility] [place] [address] Care Team Providers Care Commissioned Defence Force Officer Name Role Phone Unavailable Primary Care Provider [...] N ot on file 01/20/2021 Data from: https://www.neighborhoodatlas.medicine.[facility].edu/. Last address used for calculation Not [...] Density Screening 2021 Diabetes Screening 10/02/2021 10/02/2018 Advance Directive Discussion 11/06/2024 Influenza Vaccine (#1) 2025 2020 RSV Vaccine (1 - 1-dose 75+ series) 2031 Insurance [facility]
--- OUTSIDE RECORDS SUMMARY | 2025-07-05 15:15 | XMS_ITS | Encounter Summary ---
Author Organization [facility] Address [address] [facility] [place] [address] Care Team Providers Care Self Contained Behavior Unit Teacher Name Role Phone Shaikh BONNY Ohara Primary Care Provider [phone] Shaikh BONNY Ohara Primary Care Provider [phone] Ariella Mathis DO Unavailable [phone] Tapan Barboza MD Primary Care Provider [phone] Mae Reese ASSIGNMENT AGENT Unavailable [phone] Encounter Details Date Type Department Care Team [...] How often do you attend chur or shinto services? More than 4 times per year 10/26/2023 Do you belong to any clubs o r organizations such as sikh groups, unions, [employer] or athletic groups, or school groups? No [...] care, and heating? Not very hard 10/26/2023 [facility] - [...] place to sleep or slept in a prison (including now)? No 10/26/2023 Comments Unknown Sex [...] Description 07/16/2025 2:45 PM EDT Office Visit [facility] [address] [place] [address] Denise Lazo MD [address] [place] [address] 07/17/2025 9:00 AM EDT Office Visit [facility] [address] [place] [address] Kaylene López NP [address] [place] [address] 12/15/2026 9:00 AM EST Office Visit [facility] [address] [place] [address] Yuri Bowers PA [address] [place] [address] documented as of this encounter Procedures Procedure Name Priority Date/Time Associated Diagnosis Comments XR CHEST 2V 10/25/2023 9:45 AM EST documented in this encounter Results * XR CHEST 2V (10/25/2023 9:45 AM EST) Anatomical Region Laterality Modality Other 10/25/2023 9:45 AM EST Narrative 10/25/2023 9:48 AM EST The [address] [address] XRay Report Signed Patient: DIANA CHAMPION MR#: [id number] : 1955 Acct:[id number] Age/Sex: 68 / F ADM Date: 10/25/23 Loc: RAD Attending Dr: Bo Mcclain D.O. Ordering Physician: Bo Mcclain D.O. Date of Service: 10/25/23 Procedure(s): XR chest 2V Accession Number(s): [id number] cc: Shaikh Eva Ohara; Bo Mcclain D.O. [address] [address] Patient Name: DIANA CHAMPION MRN: [id number] date: 1955 Sex: F Assigned Patient Location: RAD Current Patient Location: RAD Accession/Order Number: [id number] Exam Date: 10/25/2023 09:31 Report Date: 10/25/2023 [...] Dictated By: Brittany Stephens M.D. Signed By: 10/25/2348 DD/ TD/TT: Collections Technician: Procedure Note Radiology, Radiologist, MD - 10/25/2023 [place] [address] XRay Report Signed Patient: DIANA CHAMPION AMR#: [id number] : 1955cct:[id number] Age/Sex: 68 / FADM Date: 10/25/23 Loc: RAD Attending Dr: Bo Mcclain D.O. Ordering Physician: Bo Mcclain D.O. Date of Service: 10/25/23 Procedure(s): XR chest 2V Accession Number(s): [id number] cc: Shaikh Eva Ohara; Bo Mcclain D.O. The [address] [address] Patient Name: DIANA CHAMPION MRN: [id number] date: 1955 Sex: F Assigned Patient Location: RAD Current Patient Location: RAD Accession/Order Number: [id number] Exam Date: 10/25/2023 09:31 Report Date: 10/25/2023 [...] 09:45 Dictated By: Brittany Stephens M.D. Signed By:10/25/23947 DD/ 4 TD/TT: Collections Technician: us Generic External Data Provider [facility] Final Result documented in this encounter Visit Diagnoses Not on filedocumented in this encounter Care Teams Self Contained Behavior Unit Teacher Relationship Specialty Start Date End Date Shaikh Ohara MD PCP - General Internal Medicine 11/06/22 12/27/23 Shaikh Ohara MD [address] [place] [address] PCP - General Internal Medicine 12/28/23 06/09/24 Tapan Barboza MD [address] [place] [address] PCP - General Family Medicine 06/10/24 Ariella Mathis DO [address] [place] [address] Referring Physician Neurology 01/02/24 Mae Reese NP [address] [place] [address] Nurse Practitioner Family Medicine 06/10/24 documented as of this encounter
--- OUTSIDE RECORDS SUMMARY | 2025-07-05 15:15 | XMS_ITS | Clinical Summary ---
Author Organization [facility] Address [address] [place] [address] Care Team Providers Care Soot Blower Name Role Phone Ariella Mathis DO Unavailable [phone] Tapan Barboza MD Primary Care Provider [phone] Mae Reese PHILOSOPHY FACULTY MEMBER Unavailable [phone] Allergies Active Allergy Reactions Criticality Noted Date [...] (six) hours if needed for wheezing. Active MAGnesium-Oxid e 400 (240 Mg) MG tablet Take 400 mg by mouth Daily 04/10/20 24 Active sodium chloride 0.9 % nebulizer solution Take 3 mL by nebulization in the morning and 3 mL before bedtime. 04/22/20 24 Active latanoprost (Xalatan) 0.005 % ophthalmic solution INSTILL 1 DROP INTO EACH EYE AT BEDTIME 06/18/20 24 Active omeprazole (PriLOSEC) [address] capsuleIndicat ions:Gastroeso phageal reflux disease without esophagitis Take 1 capsule (20 mg) by mouth every 12 (twelve) hours 180 capsule 1 02/27/20 25 Active trospium (Sanctura XR) 60 MG 24 hour capsule Take 60 mg by mouth Daily Active Ensifentrine (Ohtuvayre) 3 MG/2.5ML suspension every 12 (twelve) hours 04/02/20 25 Active Breztri Aerosphere 160-9-4.8 MCG/ACT aerosol every 12 (twelve) hours 02/25/20 25 Active baclofen (Lioresal) 10 MG tabletIndicati ons:Chronic bilateral low back pain without sciatica Take 1 tablet (10 mg) by mouth in the morning and 1 tablet (10 mg) in the evening and 1 tablet (10 mg) before bedtime. 90 tablet 2 04/28/20 25 Active pregabalin (Lyrica) 75 MG capsuleIndicat ions:Restless leg syndrome Take 1 capsule (75 mg) by mouth in the morning and 1 capsule (75 mg) before bedtime. 60 capsule 3 04/29/20 25 Active furosemide (Lasix) 20 MG tabletIndicati ons:Edema of both lower extremities Take 1 tablet (20 mg) by mouth Daily 90 tablet 1 05/12/20 25 025 Active fluticasone (Flonase) 50 MCG/ACT nasal spray Administer 2 sprays into each nostril Daily 05/01/20 25 Active PARoxetine (Paxil) 40 MG tabletIndicati ons:Moderate episode of recurrent major depressive disorder (HCC) Take 1 tablet (40 mg) by mouth in the morning. 90 tablet 1 05/19/20 25 025 Active pramipexole (Mirapex) 0.25 MG tabletIndicati ons:RLS (restless legs syndrome) Take 1 tablet (0.25 mg) by mouth as needed at bedtime (Restless leg) 90 tablet 1 05/19/20 25 026 Active traZODone (Desyrel) 100 MG tabletIndicati ons:Moderate episode of recurrent major depressive disorder (HCC) Take 1 tablet (100 mg) by mouth at bedtime TAKE 1 TABLET BY MOUTH AT BEDTIME 90 tablet 1 05/19/20 25 025 Active buPROPion XL (Wellbutrin XL) 150 MG 24 hr tabletIndicati ons:Moderate episode of recurrent major depressive disorder (HCC) Take 1 tablet (150 mg) by mouth in the morning. Do not crush, chew, or split. 30 tablet 1 06/18/20 25 025 Active buPROPion XL (Wellbutrin XL) 150 MG 24 hr tabletIndicati ons:Moderate episode of recurrent major depressive disorder (HCC) Take 1 tablet (150 mg) by mouth in the morning. Do not crush, chew, or split. 30 tablet 1 04/23/20 25 025 Discontinued mupirocin (Bactroban) 2 % ointmentIndica tions:Skin pustule Apply topically 3 (three) times a day as needed (skin pustules) for up to 10 days 22 g 06/05/20 25 025 Active Problems Problem Noted Date Diagnosed Date Candidiasis of breast 05/19/2025 Skin pustule 05/19/2025 Exacerbation of asthma 04/09/2025 Rheumatoid arthritis, unspecified [...] daily for 7 day Recent hospitalization to [facility]: back to back, 01/02/25 and 01/08/25 I [...] lipped breathing Hector pereyra in 2 weeks Chronic low back pain without sciatica 4 Assessment & Plan (01/31/2024 11:31 AM EDT): [...] invasive vent at night 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 Assessment & Plan (02/17/2025 6:09 AM EDT): Is oxygen dependant, non invasive vent at night 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 Assessment & Plan (01/16/2025 10:31 AM EDT): [...] Pneumonitis 12/05/2023 Severe persistent asthma, uncomplicated 12/05/19 24 Assessment & Plan (02/17/2025 6:09 AM EDT): [...] severe persistent asthma and was discharged from [facility] 3 days ago for acute respiratory failure [...] significantly elevated right sided pressure at 65 [facility] Cardiology Assessment & Plan (01/16/2025 10:31 AM EDT): Last ECHO currently in the chart is form 05/29: EF 50%, significantly elevated right sided pressure at 65 [facility] Cardiology Assessment & Plan (07/11/2024 8:54 AM EDT): Follows Cardiology- [facility] Was seen in May 2024 Lasix [...] and inhaler, trelegy, oxygen Follows with Pulmonology [facility] Assessment & Plan (02/17/2025 6:08 AM EDT): Current meds: albuterol nebs and inhaler, trelegy, oxygen Follows with Pulmonology [facility] Assessment & Plan (01/02/2025 3:25 PM EST): [facility] 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 Assessment & Plan (11/28/2024 1:37 PM EST): Was admitted to [facility] for COPD with acute exacerbation. Was treated [...] of this Depression 10/04/2023 Assessment & Plan (05/19/2025 9:20 AM EDT): Current meds: paxil, and recently added buproprion XL Is doing well continue current dose of meds Assessment & Plan (04/09/2025 12:37 PM EDT): [...] excess calories 1 12/04/2022 Assessment & Plan (05/19/2025 6:23 AM EDT): Discussed with patient their BMI (actual, verses recommended). We have also discussed lifestyle modifications: attempts to perform physical activity as chronic conditions allow, also to monitor dietary intake: increasing protein/fruits/veggies and lowering carb intake (unless contraindicated). Limit sodas, juices, and sugary drinks. D/t her chronic respiratory status increase in physical activity is nearly impossible Assessment & Plan (04/09/2025 6:31 AM EDT): [...] 04/01/2014 Essential hypertension 04/01/2014 Assessment & Plan (05/19/2025 6:23 AM EDT): DASH diet Limit caffeine Contact office if chest pain, pressure, dizziness, shortness of breath, swelling legs Recommend slow position changes Current meds: does not take any Assessment & Plan (01/16/2025 6:33 AM EDT): [...] conditions and weakness will send her to [facility] ER for evaluation DD: pneumonia, covid, flu, [...] prednisone, I directed her to go to [facility] for direct admission. I spoke to case [...] with Pulm and she will discuss possibly shelter prednisone for her severe Asthma/COPD. Patient instructed [...] 10:34 AM EST): Recent hospital admission at [facility] for acute resp failure due to Pneumonia, [...] will also inform the ED provider at [facility] and update them on the reason for [...] finished her oral abx prescribed by her 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. Continues to have bronchospasm, wheezing, chest tightness [...] (12/05/2023): Added automatically from request for surgery [id number] Added automatically from request for surgery [id number] Arthritis of right knee 10/17/201802/2025 Lumbar spondylosis 05/22/2018 Overview (12/05/2023): Added automatically from request for surgery [id number] Added automatically from request for surgery [id number] Encounters Date Type Department Care Team Description 06/18/2025 Refill [facility] [address] [place] [address] Kaylene López NP Moderate episode of recurrent major depressive disorder (HCC) 06/16/2025 Telephone [facility] [address] [place] [address] Kaylene López NP 06/04/2025 Refill [facility] [address] [place] [address] Kaylene López NP Skin pustule 05/22/2025 Abstract [facility] [address] [place] [address] Kaylene López NP 05/19/2025 9:00 AM EDT Office Visit [facility] [address] [place] [address] Kaylene López NP Moderate episode of recurrent major depressive disorder (HCC) (Primary Dx); Morbid (severe) obesity due to excess calories (CMS-HCC); Candidiasis of breast; Skin pustule; RLS (restless legs syndrome) 05/19/2025 Telephone [facility] [address] [place] [address] Kaylene López, RIKKI 05/19/2025 Bamboo flowsheet [facility] [address] [place] [address] Kaylene López, PHILOSOPHY FACULTY MEMBER 05/16/2025 Travel 05/15/2025 Abstract [facility] [address] [place] [address] Kaylene López, RIKKI 05/12/2025 Abstract [facility] [address] [place] [address] Kaylene López, RIKKI 05/12/2025 Refill [facility] [address] [place] [address] Kaylene López, RIKKI Chronic heart failure with preserved ejection fraction (HCC) (Primary Dx); Edema of both lower extremities 05/12/2025 Telephone [facility] [address] [place] [address] Kaylene López, RIKKI 04/30/2025 Clinisync Result Encounter [facility] External Department Unsolicited Provider, Generic External Data 04/30/2025 Abstract [facility] [address] [place] [address] Kaylene López, RIKKI 04/29/2025 Abstract [facility] [address] [place] [address] Kaylene López, RIKKI 04/29/2025 Refill [facility] [address] [place] [address] Kaylene López, RIKKI Restless leg syndrome 04/27/2025 Refill [facility] [address] [place] [address] Kaylene López NP Chronic bilateral low back pain without sciatica 04/23/2025 Refill [facility] [address] [place] [address] Kaylene López NP Moderate episode of recurrent major depressive disorder (HCC) (Primary Dx) 04/23/2025 Telephone [facility] [address] [place] [address] Kaylene López NP 04/09/2025 11:00 AM EDT Office Visit [facility] [address] [place] [address] Kaylene López NP Moderate episode of recurrent major depressive disorder (HCC) (Primary Dx); Pulmonary emphysema, unspecified emphysema type (HCC); Chronic respiratory failure with hypoxia (HCC); Morbid (severe) obesity due to excess calories ([facility]-HCC); Restless leg syndrome 04/09/2025 Bamboo flowsheet [facility] [address] [place] [address] Kaylene López NP 04/06/2025 Travel from Last 3 Months Immunizations Immunization Administration Dates Next Due Influenza, High Dose Seasona l, Preservative Free 09/06/2024 Influenza, High-dose Seasona l, Quadrivalent, Preservative Free 08/26/2023,08/04/2022,08/06/2021 Influenza, Split (incl. [place] f[place] surface antigen) 08/09/2017 Influenza, Unspecified 09/06/2024,2022,08/04/2022,08/06,08/07/2020,08/09/2019,08/08/2018 ,08/10/2017 Influenza, injectable, quadr ivalent, preservative free 08/07/2020,08/09/2019,08/08/2018,08/10 Novel [id number], preservative-free 09/02/2009 Pneumococcal Conjugate PCV 20 08/09/2023 [...] week 11/25/2024 How often do you attend [facility] or baptism services? More than 4 times per year 11/25/2024 Do you belong to any clubs o r organizations such as denominational groups, unions, fraternal or athletic groups, or [...] Recorded Patient Health Questionnaire-2 Score 0 07/11/2024 [facility] Stress Questionnaire Answer Date Recorded [...] place to sleep or slept in a fci (including now)? No 10/26/2023 Housing Stability Vital [...] in the past 12 m [facility], were you homeless or living in a fci (including now)? No 11/25/2024 Comments Unknown Sex and Gender Information Value Date Recorded Sex Assigned at Not on file Legal Sex Female 7:03 PM EDT Gender Identity Not on file Sexual Orientation Not on file Last Filed Vital Signs Vital Sign Reading Time Taken Comments Blood Pressure 118/76 05/19/2025 8:43 AM EDT Pulse 74 05/19/2025 8:43 AM EDT Temperature 36.9 C (98.5 F) 05/19/2025 8:43 AM EDT Respiratory Rate 22 05/19/2025 8:43 AM EDT Oxygen Saturation 94% 05/19/2025 8:43 AM EDT Inhaled Oxygen Concentration - - Weight 107 kg (236 lb 6.4 oz) 05/19/2025 8:43 AM EDT Height 162.6 cm (5' 4 ) 11/28/2024 1:08 PM EST Body Mass Index 40.58 11/28/2024 1:08 PM EST Plan of Treatment Upcoming Encounters Date Type Department Care Team (Late st Contact Info) Description 07/16/2025 2:45 PM EDT Office Visit [facility] [address] [place] [address] Denise Lazo MD [address] [place] [address] 07/17/2025 9:00 AM EDT Office Visit [facility] [address] [place] [address] Kaylene López NP [address] [place] [address] 12/15/2026 9:00 AM EST [facility] [address] [place] [address] Yuri Bowers PA [address] [place] [address] Health Maintenance Due Date Last Done Comments CT Colonography 1956 FIT-DNA 1956 FIT 1956 FOBT 1955 Sigmoidoscopy 1955 Influenza Vaccine (#1) 2025 , 09/06/2024, 08/26/2023, Additional history exists Mammogram 03/03/2026 03/03/2025, 02/05, 12/15/2022, Additional history exists Diabetes: Urine Protein Screening 04/09/2026 Postponed from 1975 (Other Medical Reasons) Colonoscopy 12/08/2032 12/08/2022 Colorectal Cancer Screening 12/08/2032 Pneumococcal Vaccine: 65+ Years Completed 08/09/2023, 10/19/2018 Diabetes: Hemoglobin A1C Discontinued Diabetes: Retinopathy Screening Discontinued Goals Goal Patient Goal Type Associated Problems Recent Progress Patient-Stated? Author Help patient manage antidepressant medication Care Plan Patient on antidepressant monitoring plan Katerina Carrington Procedures Procedure Name Priority Date/Time Associated Diagnosis Comments XR HIP 2 OR 3 VW RIGHT 04/30/2025 1:46 PM EDT BI MAMMOGRAM SCREENING BILATERAL 03/03/2025 4:42 PM EDT from Last 3 Months or Most Recently Relevant to Health Maintenance Results * XR hip right 2 or 3 views (04/30/2025 1:46 PM EDT) Anatomical Region Laterality Modality Lower Extremities, Hip Right Radiograp hic Imaging 04/30/2025 1:46 PM EDT Narrative 04/30/2025 1:49 PM EDT The [place] [id number] XRay Report Signed Patient: DIANA CHAMPION MR#: [id number] : 1955 Acct:[id number] Age/Sex: 69 / F ADM Date: 04/30/25 Loc: RAD Attending Dr: Jose Saucedo NP Ordering Physician: Jose Saucedo NP Date of Service: 04/30/25 Procedure(s): XR hip RT min 2V Accession Number(s): [id number] cc: Kaylene López NP; Jose Saucedo NP The [address] [address] Patient Name: DIANA CHAMPION MRN: [facility]:[id number] date: 1955 Sex: F Assigned Patient Location: [facility] Current Patient Location: [facility] Accession/Order Number: [id number] Exam Date: 04/30/2025 13:45 Report Date: 04/30/2025 13:46 At the request of: JOSE SAUCEDO NP Procedure: XR hip RT min 2V RIGHT HIP - 2 views: CLINICAL HISTORY: Right Hip Osteoarthritis COMPARISON: Right hip series 03/24/2023 FINDINGS: Severe degenerative changes of the right hip without acute bony process. XR/XR hip RT min 2V IMPRESSION: SEVERE DEGENERATIVE CHANGES OF THE RIGHT HIP WITHOUT ACUTE BONY PROCESS.. Impression dictated by: Marcos Medina Jr., D.O. 04/30/2025 1:46 PM Dictation Location: [place] [address] Electronically authenticated by: [id number] Y Date: 04/30/2025 13:46 Dictated By: Marcos Medina M.D. Signed By: 04/30/25 1349 DD/ 134 TD/TT: Night Coordinator: Procedure Note Radiology, Radiologist, MD - 04/30/[address] [address] XRay Report Signed Patient: DIANA CHAMPION AMR#: [id number] : 1955cct:[id number] Age/Sex: 69 / FADM Date: 04/30/25 Loc: RAD Attending Dr: Jose Saucedo NP Ordering Physician: Jose Saucedo NP Date of Service: 04/30/25 Procedure(s): XR hip RT min 2V Accession Number(s): [id number] cc: Kaylene López PHILOSOPHY FACULTY MEMBER; Jose Saucedo NP [address] [address] Patient Name: DIANA CHAMPION MRN: [id number] date: 1955 Sex: F Assigned Patient Location: RAD Current Patient Location: RAD Accession/Order Number: [id number] Exam Date: 04/30/2025 13:45 Report Date: 04/30/2025 13:46 At the request of: JOSE SAUCEDO NP Procedure: XR hip RT min 2V RIGHT HIP - 2 views: CLINICAL HISTORY: Right Hip Osteoarthritis COMPARISON: Right hip series 03/24/2023 FINDINGS: Severe degenerative changes of the right hip without acute bony process. XR/XR hip RT min 2V IMPRESSION: SEVERE DEGENERATIVE CHANGES OF THE RIGHT HIP WITHOUT ACUTE BONY PROCESS.. Impression dictated by: Marcos Medina Jr., D.O. 04/30/2025 1:46 PM Dictation Location: [place] [address] Electronically authenticated by: [id number] Y Date: 3:46 Dictated By: Marcos Medina M.D. Signed By:04/30/25 1349 DD/ 1346 TD/TT: Night Coordinator: Generic External Data Provider IMG XR PROCEDURES Final Result * Bilateral screening mammogram (03/03/2025 4:42 PM EDT) Anatomical Region Laterality Modality Breast Bilateral Mammography 03/03/2025 4:42 PM EDT Narrative 03/03/2025 4:43 [place] [address] Mammography Report Signed Patient: DIANA CHAMPION MR#: [id number] : 1955 Acct:[id number] Age/Sex: 69 / F ADM Date: 03/03/25 Loc: MAMMO Attending Dr: Kaylene López NP Ordering Physician: Kaylene López NP Results: Date of Service: 03/03/25 Follow Up: Procedure(s): MM screening mammo BI Accession Number(s): [id number] cc: Kaylene López NP Patient Name: DIANA CHAMPION MR#: [id number] : 1955 Exam Date: 03/03/2025 Ordering Doctor: [...] LOCATION: [facility] BREAST COMPOSITION: The breasts are almost [...] M.D. Signed By: 03/03/251642 DD/ 41 TD/TT: Night Coordinator: Procedure Note Radiology, Radiologist, MD - 03/03/2025 [place] [address] Mammography Report Signed Patient: DIANA CHAMPION AMR#: [id number] : 1955cct:[id number] Age/Sex: 69 / FADM Date: 03/03/25 Loc: MAMMO Attending Dr: Kaylene López NP Ordering Physician: Kaylene López NPResults: Date of Service: 03/03/25Follow Up: Procedure(s): MM screening mammo BI Accession Number(s): [id number] cc: Kaylene López NP Patient Name: DIANA CHAMPION MR#: [id number] : 1955 Exam Date: 03/03/2025 Ordering Doctor: CLEO López FEED MILL MANAGER RADIOLOGY REPORT PROCEDURE: MM SCREENING MAMMO BI COMPARISON: MM TOMOSYNTHESIS SCREENING BI, 02/28/2024. MG MAMM TOBLMA4A PRATEEK CAD, 12/15/2022. MG MAMM SCREEN 3D PRATEEK CAD, 11/26/2021. MG MAMM BILSCRN W CAD DIG, 12/16/2013. INDICATIONS: Screening Calculator Name NCI Breast Cancer Risk Assessment Tool 5 Year Breast Cancer Risk 1.20% Lifetime Breast Cancer Risk 4.00% Personal Breast Cancer No Personal Ovarian Cancer No Treatments Excision, radiation, chemotherapy Family Cancers None LOCATION: [facility] BREAST COMPOSITION: The breasts are almost [...] DO on 03/03/2025 at 16:38 Approved by: aMrcos Medina DO on 03/03/2025 at 16:42 Dictated By: Marcos Medina M.D. Signed By:03/03/251642 DD/ 41 TD/TT: Night Coordinator: us Kaylene López NP IMG BI PROCEDURES Final Result from Last 3 Months or Most Recently Relevant to Health Maintenance Additional Health Concerns Active Problems Noted Date Diagnosed Date Patient on antidepressant monitoring plan 2023 Insurance MEDICAID [place] [employer] MEDICARE ADVANTAGE Care Teams Soot Blower Relationship Specialty Start Date End Date Tapan Barboza MD [address] [place] [address] PCP - General Family Medicine 06/10/24 Ariella Mathis DO [address] [place] [address] Referring Physician Neurology 01/02/24 Mae Reese NP [address] [place] [address] Nurse Practitioner Family Medicine 06/10/24
--- OUTSIDE RECORDS SUMMARY | 2025-07-05 15:15 | XMS_ITS | Encounter Summary ---
Author Organization [facility] Address [address] [facility] [place] [address] Care Team Providers Care Graduate Nurse Name Role Phone Ariella Mathis DO Unavailable [phone] Tapan Barboza MD Primary Care Provider [phone] Mae Reese PARAMEDIC Unavailable [phone] Encounter Details Date Type Department Care Team (Late st Contact Info) Description 12/10/2024 Abstract [facility] [address] [place] [address] Mae Reese NP Social History Tobacco Use [...] often do you attend [facility] or bahai services? More than 4 times per year 11/25/2024 Do you belong to any clubs o r organizations such as orthodoxy groups, unions, fraternal or athletic groups, or [...] Recorded Patient Health Questionnaire-2 Score 0 07/11/2024 [facility] [place] of Occupat ional Health - Occupational Stress [...] place to sleep or slept in a long term (including now)? No 10/26/2023 Housing Stability Vital Sign Answer Dhruv e Recorded In the last 12 months, was t here a time when you were not able to pay the mortgage or rent on time? No 11/25/2024 In the past 12 months, how m any times have you moved where you were living? 0 11/25/2024 At any time in the past 12 m [facility], were you homeless or living in a long term (including now)? No 11/25/2024 Comments Unknown Sex [...] Dermatology [address] [place] [address] Denise Lazo MD [address] [place] [address] 07/17/2025 9:00 AM EDT Office Visit [facility] [address] [place] [address] Kaylene López NP [address] [place] [address] 12/15/2026 9:00 AM EST Office Visit [facility] [address] [facility] [facility] [place] [address] Yuri Bowers PA [address] [place] [address] documented as of this encounter [...] documented as of this encounter Care Teams Graduate Nurse Relationship Specialty Start Date End Date Tapan Barboza MD [address] [place] [address] PCP - General Family Medicine 06/10/24 Ariella Mathis DO [address] [place] [address] Referring Physician Neurology 01/02/24 Mae Reese NP [address] [place] [address] Nurse Practitioner Family Medicine 06/10/24 documented as of this encounter
--- OUTSIDE RECORDS SUMMARY | 2025-07-05 15:15 | XMS_ITS | Encounter Summary ---
Author Organization [facility] Address [address] [place] [address] Care Team Providers Care Investment Officer Name Role Phone Ariella Mathis DO Unavailable [phone] Tapan Barboza MD Primary Care Provider [phone] Mae Reese MACHINE STRIPPER Unavailable Encounter Details Date Type Department Care Team (Late st Contact Info) Description 08/12/2024 Orders Only [facility] [address] [place] [address] Shaikh Ohara MD [address] [place] [address] Social History Tobacco Use Types Packs/Day Years [...] 10/26/2023 How often do you attend [facility] or sikhism services? More than 4 times per year 10/26/2023 Do you belong to any clubs o r organizations such as sikhism groups, unions, fraternal or athletic groups, or [...] Recorded Patient Health Questionnaire-2 Score 0 07/11/2024 [facility] [place] of Occupat ional Health - Occupational Stress [...] place to sleep or slept in a long-term (including now)? No 10/26/2023 Comments Unknown Sex [...] Dermatology [address] [place] [address] Denise Lazo MD [address] [place] [address] 07/17/2025 9:00 AM EDT Office Visit [facility] [address] [place] [address] Kaylene López NP [address] [place] [address] 12/15/2026 9:00 AM EST Office Visit [facility] [address] [place] [address] Yuri Bowers PA [address] [place] [address] documented as of this encounter Goals [...] documented as of this encounter Care Teams Investment Officer Relationship Specialty Start Date End Date Tapan Barboza MD [address] [place] [address] PCP - General Family Medicine 06/10/24 Ariella Mathis DO [address] [place] [address] Referring Physician Neurology 01/02/24 Mae Reese NP [address] [place] [address] Nurse Practitioner Family Medicine 06/10/24 documented as of this encounter
--- OUTSIDE RECORDS SUMMARY | 2025-07-05 15:15 | XMS_ITS | Encounter Summary ---
Author Organization [facility] Address [address] [facility] [place] [address] Care Team Providers Care Excellence Specialist Name Role Phone Ariella Mathis DO Unavailable [phone] Tapan Barboza MD Primary Care Provider [phone] Mae Reese SENIOR PARTNER Unavailable Encounter Details Date Type Department Care Team (Late st Contact Info) Description 07/15/2024 Orders Only [facility] [address] [place] [address] Opioid use Social History Tobacco Use Types [...] week 10/26/2023 How often do you attend [facility] or judaism services? More than 4 times per year [...] Recorded Patient Health Questionnaire-2 Score 0 07/11/2024 [facility] of Occupat ional Health - Occupational [...] in a fci (including now)? No 10/26/2023 Comments Unknown Sex [...] Dermatology [address] [place] [address] Denise Lazo MD [address] [place] [address] 07/17/2025 9:00 AM EDT Office Visit [facility] [address] [place] [address] Kaylene López NP [address] [place] [address] 12/15/2026 9:00 AM EST Office [facility] [address] [place] [address] Yuri Bowers PA [address] [place] [address] documented as of this encounter Visit Diagnoses Diagnosis Opioid use documented in this encounter Additional Health Concerns Assessment Noted Time PHQ-9 Depression Total Score: 7 11/02/20 23 3:03 PM EST documented as of this encounter Care Teams Excellence Specialist Relationship Specialty Start Date End Date Tapan Barboza MD [address] [place] [address] PCP - General Family Medicine 06/10/24 Ariella Mathis DO [address] [place] [address] Referring Physician Neurology 01/02/24 Mae Reese NP [address] [place] [address] Nurse Practitioner Family Medicine 06/10/24 documented as of this encounter
--- OUTSIDE RECORDS SUMMARY | 2025-07-05 15:15 | XMS_ITS | Encounter Summary ---
Author Organization [facility] Address [address] [place] [address] Care Team Providers Care Custom Dressmaker Name Role Phone Ariella Mathis DO Unavailable [phone] Tapan Barboza MD Primary Care Provider [phone] Mae Reese TRUCK RENTAL CLERK Unavailable [phone] Encounter Details Date Type Department Care Team (Late st Contact Info) Description 04/30/2025 Abstract [facility] [address] [place] [address] Kaylene López NP [address] [place] [address] Social History Tobacco Use Types Packs/Day Years [...] How often do you attend chur or rastafari services? More than 4 times per year 11/25/2024 Do you belong to any clubs o r organizations such as taoism groups, unions, fraternal or athletic groups, or [...] Recorded Patient Health Questionnaire-2 Score 0 07/11/2024 [facility] of Occupat ional Health - Occupational Stress [...] any time in the past 12 m [facility], were you homeless or living in [...] [address] [place] [address] Denise Lazo MD [address] [place] [address] 07/17/2025 9:00 AM EDT Office Visit [facility] [address] [place] [address] Kaylene López NP [address] [place] [address] 12/15/2026 9:00 AM EST Office Visit [facility] [address] [place] [address] Yuri Bowers PA [address] [place] [address] documented as of this encounter [...] documented as of this encounter Care Teams Custom Dressmaker Relationship Specialty Start Date End Date Tapan Barboza MD [address] [place] [address] PCP - General Family Medicine 06/10/24 Ariella Mathis DO [address] [place] [address] Referring Physician Neurology 01/02/24 Mae Reese NP [address] [place] [address] Nurse Practitioner Family Medicine 06/10/24 documented as of this encounter
--- OUTSIDE RECORDS SUMMARY | 2025-07-05 15:15 | XMS_ITS | Encounter Summary ---
Author Organization [facility] Address [address] [place] [address] Care Team Providers Care Remote Sensing Analyst Name Role Phone Ariella Mathis DO Unavailable [phone] aTpan Barboza MD Primary Care Provider [phone] Mae Reese MANAGER SOCIAL Unavailable [phone] Encounter Details Date Type Department Care Team (Late st Contact Info) Description 05/22/2025 Abstract [facility] [address] [place] [address] Kaylene López NP [address] [place] [address] Social History Tobacco Use Types Packs/Day Years [...] How often do you attend chur or yarsanism services? More than 4 times per year 11/25/2024 Do you belong to any clubs o r organizations such as latter-day groups, unions, fraternal or athletic groups, or [...] Recorded Patient Health Questionnaire-2 Score 0 07/11/2024 [facility] of Occupat ional [...] place to sleep or slept in a chcf (including now)? No 10/26/2023 Housing Stability Vital Sign Answer Dhruv e Recorded In the last 12 months, was t here a time when you were not able to pay the mortgage or rent on time? No 11/25/2024 In the past 12 months, how m any times have you moved where you were living? 0 11/25/2024 At any time in the past 12 m [facility], were you homeless or living in a chcf (including now)? No 11/25/2024 Comments Unknown Sex [...] [address] [place] [address] Denise Lazo MD [address] [place] [address] 07/17/2025 9:00 AM EDT Office Visit [facility] [address] [place] [address] Kaylene López NP [address] [place] [address] 12/15/2026 9:00 AM EST Office Visit [facility] [address] [place] [address] Yuri Bowers PA [address] [place] [address] documented as of this encounter [...] documented as of this encounter Care Teams Remote Sensing Analyst Relationship Specialty Start Date End Date Tapan Barboza MD [address] [place] [address] PCP - General Family Medicine 06/10/24 Ariella Mathis DO [address] [place] [address] Referring Physician Neurology 01/02/24 Mae Reese NP [address] [place] [address] Nurse Practitioner Family Medicine 06/10/24 documented as of this encounter
--- OUTSIDE RECORDS SUMMARY | 2025-07-05 15:15 | XMS_ITS | Encounter Summary ---
Author Organization [facility] Address [address] [place] [place] [address] Care Team Providers Care Oil Operator Name Role Phone Ariella Mathis DO Unavailable [phone] Tapan Barboza MD Primary Care Provider [phone] Mae Reese AIR DRILL OPERATOR Unavailable [phone] Encounter Details Date Type Department Care Team (Late st Contact Info) Description 04/29/2025 Abstract [facility] [address] [place] [address] Kaylene López NP [address] [place] [address] Social History Tobacco Use Types Packs/Day Years [...] How often do you attend chur or hinduism services? More than 4 times per year 11/25/2024 Do you belong to any clubs o r organizations such as mormon groups, unions, fraternal or athletic groups, or [...] Recorded Patient Health Questionnaire-2 Score 0 07/11/2024 [facility] of Occupat ional Health - Occupational [...] any time in the past 12 m [facility], were you homeless or living [...] [address] [place] [address] Denise Lazo MD [address] [place] [address] 07/17/2025 9:00 AM EDT Office Visit [facility] [address] [place] [address] Kaylene López NP [address] [place] [address] 12/15/2026 9:00 AM EST Office Visit [facility] [address] [place] [address] Yuri Bowers PA [address] [place] [address] documented as of this encounter [...] documented as of this encounter Care Teams Oil Operator Relationship Specialty Start Date End Date Tapan Barboza MD [address] [place] [address] PCP - General Family Medicine 06/10/24 Ariella Mathis DO [address] [place] [address] Referring Physician Neurology 01/02/24 Mae Reese NP [address] [place] [address] Nurse Practitioner Family Medicine 06/10/24 documented as of this encounter
--- OUTSIDE RECORDS SUMMARY | 2025-07-05 15:15 | XMS_ITS | Encounter Summary ---
Author Organization [facility] Address [address] [facility] [place] [address] Care Team Providers Care Aquaculture Director Name Role Phone Shaikh BONNY Ohara Primary Care Provider [phone] Ariella Mathis DO Unavailable [phone] Tapan Barboza MD Primary Care Provider [phone] Mae Reese WET POUR SUPERVISOR Unavailable [phone] Encounter Details Date Type Department Care Team [...] How often do you attend chur or faith services? More than 4 times per year 10/26/2023 Do you belong to any clubs o r organizations such as cheondoism groups, unions, fraternal or athletic groups, or [...] Recorded Patient Health Questionnaire-2 Score 0 01/25/2024 [facility] of Occupat ional Health - Occupational [...] Dermatology [address] [place] [address] Denise Lazo MD [address] [place] [address] 07/17/2025 9:00 AM EDT Office Visit [facility] [address] [place] [address] Kaylene López NP [address] [place] [address] 12/15/2026 9:00 AM EST Office Visit [facility] [address] [place] [address] Yuri Bowers PA [address] [facility] [place] [address] documented as of this encounter Procedures Procedure Name Priority Date/Time Associated Diagnosis Comments XR CHEST 1 V 02/03/2024 9:41 AM EDT documented in this encounter Results * XR CHEST 1 V (02/03/2024 9:41 AM EDT) Anatomical Region Laterality Modality Other 02/03/2024 9:41 AM EDT Narrative 02/03/2024 9:43 AM EDT [address] [address] XRay Report Signed Patient: DIANA CHAMPION MR#: [id number] : 1955 Acct:[id number] Age/Sex: 68 / F ADM Date: Loc: ER Attending Dr: Ordering Physician: Tere Rodriguez Date of Service: 02/03/24 Procedure(s): XR chest 1V Accession Number(s): [id number] cc: Shaikh Eva Ohara; Tere Rdoriguez [address] [address] Patient Name: DIANA CHAMPION MRN: [id number] date: 1955 Sex: F Assigned Patient Location: ED.MAIN Current Patient Location: ER Accession/Order Number: [id number] Exam Date: 02/03/2024 09:15 Report Date: 02/03/2024 [...] M.D. Signed By: 02/03/24942 DD/ 0 TD/TT: Library Page: Procedure Note Radiology, Radiologist, MD - 02/07/2024 [place] [address] XRay Report Signed Patient: DIANA CHAMPION AMR#: [id number] : 1955cct:[id number] Age/Sex: 68 / FADM Date: Loc: ER Attending Dr: Ordering Physician: Tere Rodriguez Date of Service: 02/03/24 Procedure(s): XR chest 1V Accession Number(s): [id number] cc: Shaikh Eva Ohara; Tere Rodriguez The [address] [address] Patient Name: DIANA CHAMPION MRN: [id number] date: 1955 Sex: F Assigned Patient Location: ED.MAIN Current Patient Location: ER Accession/Order Number: [id number] Exam Date: 02/03/2024 09:15 Report Date: 02/03/2024 [...] Boudreaux M.D. Signed By:02/03/2443 DD/ 0 TD/TT: Library Page: us Generic External Data Provider [facility] Final Result documented in this encounter Visit Diagnoses Not on filedocumented in this encounter Additional Health Concerns Assessment Noted Time PHQ-9 Depression Total Score: 7 11/02/20 23 3:03 PM EST documented as of this encounter Care Teams Aquaculture Director Relationship Specialty Start Date End Date Shaikh Ohara MD [address] [place] [address] PCP - General Internal Medicine 12/28/23 06/09/24 Tapan Barboza MD [address] [place] [address] PCP - General Family Medicine 06/10/24 Ariella Mathis DO [address] [place] [address] Referring Physician Neurology 01/02/24 Mae Reese NP [address] [place] [address] Nurse Practitioner Family Medicine 06/10/24 documented as of this encounter
--- OUTSIDE RECORDS SUMMARY | 2025-07-05 15:15 | XMS_ITS | Clinical Summary ---
Author Organization Corpora tem Address [id number] [address] [place] [address] Care Team Providers Care Sueding And Buffing Machine Operator Name Role Phone Timoteo Rainey MD Primary [...] mg by mouth daily with breakfast. Active etglbreb-amva-T A-calcium &mins (THERAGRAN-M) 9 mg iron-400 mcg [...] (03/26/2019): Added automatically from request for surgery [id number] Arthritis of right knee 10/17/2018 Lumbar spondylosis 05/22/2018 Overview (05/22/2018): Added automatically from request for surgery [id number] Disorder of sacrum 01/15/2018 Overview (01/15/2018): Added automatically from request for surgery [id number] Immunizations Immunization Administration Dates Next Due Pneumococcal [...] Vaccine 07/07/2025 Medical Devices Implanted Type Area Coat Tailor Device Identifier Shelf Expiration Date Model / Serial / Lot Cmnt Bn [employer] Rpl [id number] - Sna - [id number] Implanted:Qty: 1 on 10/18/2018 by Jim Herring Jr. DO at [facility] Cement Right: Knee [employer] [id number] / NA / [id number] Cmnt Bn [employer]c Rpl [id number] - Sna - [id number] Implanted:Qty: 2 on 10/18/2018 by Jim Herring Jr. DO at [facility] Cement Right: Knee [employer] 02/03/2022 [id number] / NA / [id number] Orthopedic Implant Orthopedic Implant Description:lumbar fusion Orthopedic Implant Orthopedic Implant Description:left hip Cmpt Ptlr 32mm Nxgn Alply Rpl [id number] + [id number] + [id number] - Sna - [id number] Implanted:Qty: 1 on 10/18/2018 by Jim Herring Jr., DO at [facility] Orthopedic Implant Right: Knee [employer] 07/06/20265972 5-32 / NA / [id number] Ins Artc 3-4 E-F 12mm Kn Fx Rpl [id number] - Sna - [id number] Implanted:Qty: 1 on 10/18/2018 by Jim Herring Jr., DO at [facility] Orthopedic Implant Right: Knee [employer] 10/05/20225962 2-12 / NA / [id number] Cmpt Fem E Kn Rt Lpsflx Gndr Rpl [id number] - Sna - [id number] Implanted:Qty: 1 on 10/18/2018 by Jim Herring Jr., DO at [facility] Orthopedic Implant Right: Knee [employer] 11/05/20275764- 5-52 / NA / [id number] Plt Tib [id number] Nxgn Kn Cmnt Rpl 665767 + [id number] - Sna - [id number] Implanted:Qty: 1 on 10/18/2018 by Jim Herring Jr. DO at [facility] Plate Right: Knee [employer] 80 7-02 / NA / [id number] Explanted Type Area Coat Tailor Device Identifier Shelf Expiration Date Model / Serial / Lot Scr Bn Chente 35mm 6.5mm Hip St Rpl [id number] + [id number] + 32 - Sna - [id number] Explanted:Qty: 2 on 10/18/2018 at [facility] Screw Right: Knee [employer] 09/05/20280- 5-35 / NA / [id number] Scr Gd 48mm Qd-Spr Hex Hd Mis - Sna - [id number] Explanted:Qty: 2 on 10/18/2018 by Jim Herring Jr. DO at [facility] Screw Right: Knee [employer] 05/05/20285983- 0-48 / NA / [id number] Insurance MEDICARE [place]ICAID [place] Advance Directives * Full Code (Latest Code Status on File) Date Activated Date Inactivated Comments 10/18/2018 1:03 PM 10/19/2018 2:33 PM Care Teams Sueding And Buffing Machine Operator Relationship Specialty Start Date End Date Timoteo Rainey MD PCP - General Family Medicine 12/26/17
--- OUTSIDE RECORDS SUMMARY | 2025-07-05 15:15 | XMS_ITS | Encounter Summary ---
Author Organization [facility] Address [address] [place] [address] Care Team Providers Care Jump Iron Machine Presser Name Role Phone Ariella Mathis DO Unavailable [phone] Tapan Barboza MD Primary Care Provider [phone] Mae Reese CASINO CHANGE ATTENDANT Unavailable [phone] Encounter Details Date Type Department Care Team (Late st Contact Info) Description 05/15/2025 Abstract [facility] [address] [place] [address] Kaylene López NP [address] [place] [address] Social History Tobacco Use Types Packs/Day Years [...] How often do you attend chur or jainism services? More than 4 times per year 11/25/2024 Do you belong to any clubs o r organizations such as latter day groups, unions, fraternal or athletic groups, or [...] Recorded Patient Health Questionnaire-2 Score 0 07/11/2024 [facility] of Occupat ional Health - [...] in a penitentiary (including now)? No 10/26/2023 Housing Stability Vital Sign Answer Dhruv e Recorded In the last 12 months, was t here a time when you were not able to pay the mortgage or rent on time? No 11/25/2024 In the past 12 months, how m any times have you moved where you were living? 0 11/25/2024 At any time in the past 12 m [facility], were you homeless or living in a penitentiary (including now)? No 11/25/2024 Comments Unknown Sex [...] [address] [place] [address] Denise Lazo MD [address] [place] [address] 07/17/2025 9:00 AM EDT Office Visit [facility] [address] [place] [address] Kaylene López NP [address] [place] [address] 12/15/2026 9:00 AM EST Office Visit [facility] [address] [place] [address] Yuri Bowers PA [address] [place] [address] documented as of this encounter [...] documented as of this encounter Care Teams Jump Iron Machine Presser Relationship Specialty Start Date End Date Tapan Barboza MD [address] [place] [address] PCP - General Family Medicine 06/10/24 Ariella Mathis DO [address] [place] [address] Referring Physician Neurology 01/02/24 Mae Reese NP [address] [place] [address] Nurse Practitioner Family Medicine 06/10/24 documented as of this encounter
--- OUTSIDE RECORDS SUMMARY | 2025-07-05 15:16 | XMS_ITS | Encounter Summary ---
Author Organization [facility] Address [address] [place] [address] Care Team Providers Care Stove Fitter Name Role Phone Shaikh BONNY Ohara Primary Care Provider [phone] Ariella Mathis DO Unavailable [phone] Tapan Barboza MD Primary Care Provider [phone] Mae Reese CASHIER SUPERVISOR Unavailable [phone] Encounter Details Date Type Department Care Team (Late st Contact Info) Description 02/13/2024 Clinisync Result Encounter [facility] External Department Unsolicited Shaikh Ohara MD [address] [place] [address] Social History Tobacco Use Types Packs/Day Years [...] How often do you attend [facility] or sikh services? More than 4 times per year 10/26/2023 Do you belong to any clubs o r organizations such as evangelical groups, unions, fraternal or athletic groups, or [...] Recorded Patient Health Questionnaire-2 Score 0 01/25/2024 [facility] of Occupat ional Health - Occupational Stress [...] No 10/26/2023 Housing Stability Vital Sign Answer Drhuv e Recorded In the last 12 months, [...] Dermatology [address] [place] [address] Denise Lazo MD [address] [place] [address] 07/17/2025 9:00 AM EDT Office Visit [facility] [address] [place] [address] Kaylene López, RIKKI [address] [place] [address] 12/15/2026 9:00 AM EST Office [facility] [address] [place] [address] Yuri Bowers PA [address] [facility] [place] [address] documented as of this encounter Procedures Procedure Name Priority Date/Time Associated Diagnosis Comments MR LUMBAR SPINE WO CON 02/13/2024 2:06 PM EDT documented in this encounter Results * MR LUMBAR SPINE WO CON (02/13/2024 2:06 PM EDT) Anatomical Region Laterality Modality Other 02/13/2024 2:06 PM EDT Narrative 02/13/2024 2:08 [place] [address] Magnetic Resonance Report Signed Patient: DIANA CHAMPION MR#: [id number] : 1955 Acct:[id number] Age/Sex: 68 / F ADM Date: 02/13/24 Loc: MRI Attending Dr: Shaikh Lev Velasquez Ordering Physician: Shaikh Eav Ohara Date of Service: 02/13/24 Procedure(s): MR lumbar spine wo con Accession Number(s): [id number] cc: Shaikh Eva Ohara [place] [id number] Patient Name: DIANA CHAMPION MRN: [id number] date: 1955 Sex: F Assigned Patient Location: MRI Current Patient Location: MRI Accession/Order Number: [id number] Exam Date: 02/13/2024 10:45 Report Date: 02/13/2024 [...] Signed By: 02/13/24 1408 DD/ 1406 TD/TT: Biomedical Equipment Tech: Procedure Note Radiology, Radiologist, MD - 02/13/2024 [place] [address] Magnetic Resonance Report Signed Patient: DIANA CHAMPION AMR#: [id number] : 1955cct:[id number] Age/Sex: 68 / FADM Date: 02/13/24 Loc: MRI Attending Dr: Shaikh Lev Velasquez Ordering Physician: Shaikh Eva Ohara Date of Service: 02/13/24 Procedure(s): MR lumbar spine wo con Accession Number(s): [id number] cc: Shaikh Eva Ohara [place] [address] Patient Name: DIANA CHAMPION MRN: [id number] date: 1955 Sex: F Assigned Patient Location: MRI Current Patient Location: MRI Accession/Order Number: [id number] Exam Date: 02/13/2024 10:45 Report Date: 02/13/2024 [...] M.D. Signed By:02/13/24 1408 DD/ 1406 TD/TT: Biomedical Equipment Tech: Shaikh Lev DRAPER [facility] Final Result documented in this encounter Visit Diagnoses Not on filedocumented in this encounter Additional Health Concerns Assessment Noted Time PHQ-9 Depression Total Score: 7 11/02/20 23 3:03 PM EST documented as of this encounter Care Teams Stove Fitter Relationship Specialty Start Date End Date Shaikh Ohara MD [address] [place] [address] PCP - General Internal Medicine 12/28/23 06/09/24 Tapan Barboza MD [address] [place] [address] PCP - General Family Medicine 06/10/24 Ariella Mathis DO [address] [place] [address] Referring Physician Neurology 01/02/24 Mae Reese NP [address] [place] [address] Nurse Practitioner Family Medicine 06/10/24 documented as of this encounter
--- OUTSIDE RECORDS SUMMARY | 2025-07-05 15:16 | XMS_ITS | Encounter Summary ---
Author Organization [facility] Address [address] [place] [address] Care Team Providers Care Car Servicer Name Role Phone Shaikh BONNY Ohara Primary Care Provider [phone] Ariella Mathis DO Unavailable [phone] Tapan Barboza MD Primary Care Provider Mae Reese HONING MACHINE OPERATOR TOOL Unavailable [phone] Encounter Details Date Type Department Care Team (Late st Contact Info) Description 04/12/2024 Orders Only [facility] [address] [place] [address] Shaikh Ohara MD [address] [place] [address] Social History Tobacco Use Types Packs/Day Years [...] 10/26/2023 How often do you attend [facility] or yazidi services? More than 4 times per year 10/26/2023 Do you belong to any clubs o r organizations such as samaritan groups, unions, fraternal or athletic groups, or [...] Recorded Patient Health Questionnaire-2 Score 0 04/11/2024 [facility] [place] of Occupat ional Health - Occupational Stress [...] place to sleep or slept in a nursing home (including now)? No 10/26/2023 Comments Unknown [...] Dermatology [address] [place] [address] Denise Lazo MD [address] [place] [address] 07/17/2025 9:00 AM EDT Office Visit [facility] [address] [place] [address] Kaylene López NP [address] [place] [address] 12/15/2026 9:00 AM EST Office Visit [facility] [address] [place] [address] Yuri Bowers PA [address] [place] [address] documented as of this encounter [...] documented as of this encounter Care Teams Car Servicer Relationship Specialty Start Date End Date Shaikh Ohara MD [address] [place] [address] PCP - General Internal Medicine 12/28/23 06/09/24 Tapan Barboza MD [address] [place] [address] PCP - General Family Medicine 06/10/24 Ariella Mathis DO [address] [place] [address] Referring Physician Neurology 01/02/24 Mae Reese NP [address] [place] [address] Nurse Practitioner Family Medicine 06/10/24 documented as of this encounter
--- OUTSIDE RECORDS SUMMARY | 2025-07-05 15:16 | XMS_ITS | Encounter Summary ---
Author Organization [facility] Address [address] [facility] [place] [address] Care Team Providers Care Furnace Repairer Helper Name Role Phone Shaikh BONNY Ohara Primary Care Provider [phone] Ariella Mathis DO Unavailable [phone] Tapan Barboza MD Primary Care Provider [phone] Mae Reese TABLE SETTER Unavailable [phone] Encounter Details Date Type Department Care Team [...] any clubs o r organizations such as yazidism groups, unions, fraternal or athletic groups, or [...] Recorded Patient Health Questionnaire-2 Score 0 04/17/2024 [facility] of Occupat ional Health - Occupational [...] Dermatology [address] [place] [address] Denise Lazo MD [address] [place] [address] 07/17/2025 9:00 AM EDT Office Visit [facility] [address] [place] [address] Kaylene López NP [address] [place] [address] 12/15/2026 9:00 AM EST Office Visit [facility] [address] [place] [address] Yuri Bowers PA [address] [place] [address] documented as of this encounter Procedures Procedure Name Priority Date/Time Associated Diagnosis Comments CA ECHO DOPPLER COMPLETE 05/29/2024 3:49 PM EDT documented in this encounter Results * CA ECHO DOPPLER COMPLETE (05/29/2024 3:49 PM EDT) Anatomical Region Laterality Modality Other 05/29/2024 3:49 PM EDT Narrative 05/29/2024 3:50 [place] [address] Cardiology Report Signed Patient: DIANA CHAMPION MR#: [id number] : 1955 Acct:[id number] Age/Sex: 68 / F ADM Date: 05/28/24 Loc: CARD Attending Dr: Nasim Scales M.D. Ordering Physician: Nasim Scales M.D. Date of Service: 05/28/24 Procedure(s): CA echo doppler complete Accession Number(s): [id number] cc: Nasim Scales M.D.; Shaikh Eva Ohara Patient Name: DIANA CHAMPION MR#: [id number] : 1955 Exam Date: 05/28/2024 Ordering Doctor: [...] Signed By: 05/29/24 1550 DD/ 1549 TD/TT: Performance Improvement Analyst: Procedure Note Radiology, Radiologist, MD - 05/29/2024 [place] [address] Cardiology Report Signed Patient: DIANA CHAMPION AMR#: [id number] : 1955cct:[id number] Age/Sex: 68 / FADM Date: 05/28/24 Loc: CARD Attending Dr: Nasim Scales M.D. Ordering Physician: Nasim Scales M.D. Date of Service: 05/28/24 Procedure(s): CA echo doppler complete Accession Number(s): [id number] cc: Nasim Scales M.D.; Shaikh Eva Ohara Patient Name: DIANA CHAMPION MR#: [id number] : 1955 Exam Date: 05/28/2024 Ordering Doctor: [...] LIMON Signed By:05/29/24 1550 DD/ 1549 TD/TT: Performance Improvement Analyst: [facility] External Data Provider [facility] Final Result documented in this encounter Visit Diagnoses Not on filedocumented in this encounter Additional Health Concerns Assessment Noted Time PHQ-9 Depression Total Score: 7 11/02/20 23 3:03 PM EST documented as of this encounter Care Teams Furnace Repairer Helper Relationship Specialty Start Date End Date Shaikh Ohara MD [address] [place] [address] PCP - General Internal Medicine 12/28/23 06/09/24 Tapan Barboza MD [address] [place] [address] PCP - General Family Medicine 06/10/24 Ariella Mathis DO [address] [place] [address] Referring Physician Neurology 01/02/24 Mae Reese NP [address] [place] [address] Nurse Practitioner Family Medicine 06/10/24 documented as of this encounter
--- OUTSIDE RECORDS SUMMARY | 2025-07-05 15:16 | XMS_ITS | Encounter Summary ---
Author Organization [facility] Address [address] [place] [address] Care Team Providers Care Chief Crew Scheduler Name Role Phone Shaikh BONNY Ohara Primary Care Provider [phone] Ariella Mathis DO Unavailable [phone] Tapan Barboza MD Primary Care Provider [phone] Mae Reese MEAT APPRENTICE Unavailable [phone] Encounter Details Date Type Department Care Team (Late st Contact Info) Description 02/29/2024 Clinisync Result Encounter [facility] External Department Unsolicited Kaylene López, RIKKI [address] [place] [address] Social History Tobacco Use Types Packs/Day Years [...] week 10/26/2023 How often do you attend [facility] or temple services? More than 4 times per year 10/26/2023 Do you belong to any clubs o r organizations such as lutheran groups, unions, fraternal or athletic groups, or [...] Recorded Patient Health Questionnaire-2 Score 0 02/26/2024 [facility] [place] of Occupat ional Health - Occupational Stress [...] place to sleep or slept in a snf (including now)? No 10/26/2023 Comments Unknown Sex [...] Dermatology [address] [place] [address] Denise Lazo MD [address] [place] [address] 07/17/2025 9:00 AM EDT Office Visit [facility] [address] [place] [address] Kaylene López, MEAT APPRENTICE [address] [place] [address] 12/15/2026 9:00 AM EST Office Visit [facility] [address] [place] [address] Yuri Bowers PA [address] [place] [address] documented as of this encounter Procedures Procedure Name Priority Date/Time Associated Diagnosis Comments MM TOMOSYNTHESIS SCREENING BI 02/29/2024 4:01 PM EDT documented in this encounter Results * MM TOMOSYNTHESIS SCREENING BI (02/29/2024 4:01 PM EDT) Anatomical Region Laterality Modality Other 02/29/2024 4:01 PM EDT Narrative 02/29/2024 4:02 [place] [address] Mammography Report Signed Patient: DIANA CHAMPION MR#: [id number] : 1955 Acct:[id number] Age/Sex: 68 / F ADM Date: 02/28/24 Loc: MAMMO Attending Dr: Kaylene López NP Ordering Physician: Kaylene López NP Results: Date of Service: 02/28/24 Follow Up: Procedure(s): MM tomosynthesis screening BI Accession Number(s): [id number] cc: Kaylene López NP; Shaikh Eva Ohara Patient Name: DIANA CHAMPION MR#: [id number] : 1955 Exam Date: 02/28/2024 Ordering Doctor: [...] radiation, chemotherapy Family Cancers None LOCATION: The [facility] BREAST COMPOSITION: The breasts are almost [...] Patel M.D. Signed By: 02/29/24 1602 DD/ 1601 TD/TT: Bonding Molder: Procedure Note Radiology, Radiologist, MD - 02/29/2024 [place] [address] Mammography Report Signed Patient: DIANA CHAMPION AMR#: [id number] : 1955cct:[id number] Age/Sex: 68 / FADM Date: 02/28/24 Loc: MAMMO Attending Dr: Kaylene López NP Ordering Physician: Kaylene López NPResults: Date of Service: 02/28/24Follow Up: Procedure(s): MM tomosynthesis screening BI Accession Number(s): [id number] cc: Kaylene López MEAT APPRENTICE; Shaikh Eva Ohara Patient Name: DIANA CHAMPION MR#: [id number] : 1955 Exam Date: 02/28/2024 Ordering Doctor: CLEO López SOFTWARE APPLICATION TESTER RADIOLOGY REPORT PROCEDURE: MM TOMOSYNTHESIS SCREENING BI [...] radiation, chemotherapy Family Cancers None LOCATION: The [facility] BREAST COMPOSITION: The breasts are almost [...] M.D. Signed By:02/29/24 1602 DD/ 1601 TD/TT: Bonding Molder: Kaylene López NP [facility] Final Result documented in this encounter Visit Diagnoses Not on filedocumented in this encounter Additional Health Concerns Assessment Noted Time PHQ-9 Depression Total Score: 7 11/02/20 23 3:03 PM EST documented as of this encounter Care Teams Chief Crew Scheduler Relationship Specialty Start Date End Date Shaikh Ohara MD [address] [place] [address] PCP - General Internal Medicine 12/28/23 06/09/24 Tapan Barboza MD [address] [place] [address] PCP - General Family Medicine 06/10/24 Ariella Mathis DO [address] [place] [address] Referring Physician Neurology 01/02/24 Mae Reese NP [address] [place] [address] Nurse Practitioner Family Medicine 06/10/24 documented as of this encounter
--- OUTSIDE RECORDS SUMMARY | 2025-07-05 15:16 | XMS_ITS | Clinical Summary ---
Author Organization [facility] Address [address] [place] [address] Care Team Providers Care Soldering Technician Name Role Phone Kaylene López MD Primary [...] with Pulm and she will discuss possibly group home prednisone for her severe Asthma/COPD. Patient instructed [...] finished her oral abx prescribed by her python engineer. Continues to have bronchospasm, wheezing, chest tightness [...] (03/23/2023): Added automatically from request for surgery [id number] Arthritis of right knee 10/17/2018 Lumbar spondylosis 05/22/2018 Overview (03/23/2023): Added automatically from request for surgery [id number] Disorder of sacrum 01/15/2018 Overview (03/23/2023): Added automatically from request for surgery [id number] Asthma 04/01/2014 Chest pain 04/01/2014 Chronic obstructive [...] 2024 09/20/2024, 08/26/2023, 08/04/2022, Additional history exists Influenza Vaccine (#1) 2025 , 08/26/2023, 08/04/2022, Additional history exists Depression Screening 10/17/2025 10/17/2024 Fall Risk Screening 10/17/2025 10/17/2024 Zoster Vaccines Completed 11/01/2022, 08/27/2022 Pneumococcal Vaccine: 50+ Years Completed 08/09/2023, 10/19/2018 HIB Vaccines Aged Out No longer eligi [...] age to complete this topic Insurance [place]ICA[place] [employer]AGE Care Teams Soldering Technician Relationship Specialty Start Date End Date Kaylene López MD [address] [place] [address] PCP - General Nurse Practitioner 01/22/25
--- OUTSIDE RECORDS SUMMARY | 2025-07-05 15:16 | XMS_ITS | Encounter Summary ---
Author Organization [facility] Address [address] [place] [address] Care Team Providers Care Batch Heat Treat Operator Name Role Phone Shaikh BONNY Ohara Primary Care Provider [phone] Ariella Mathis DO Unavailable [phone] Tapan Barboza MD Primary Care Provider Mae Reese MASTER BARBER Unavailable [phone] Encounter Details Date Type Department Care Team (Late st Contact Info) Description 03/27/2024 Clinisync Result Encounter [facility] External Department Unsolicited Shaikh Ohara MD [address] [place] [address] Social History Tobacco Use Types Packs/Day Years [...] week 10/26/2023 How often do you attend [facility] or gnosticist services? More than 4 times per year 10/26/2023 Do you belong to any clubs o r organizations such as religious groups, unions, fraternal or athletic groups, or [...] Recorded Patient Health Questionnaire-2 Score 0 03/27/2024 [employer] [employer] [facility] of Occupat ional Health - Occupational Stress [...] Dermatology [address] [place] [address] Denise Lazo MD [address] [place] [address] 07/17/2025 9:00 AM EDT Office Visit [facility] [address] [place] [address] Kaylene López NP [address] [place] [address] 12/15/2026 9:00 AM EST [facility] [address] [facility] [place] [address] Yuri Bowers PA [address] [place] [address] documented as of this encounter Procedures Procedure Name Priority Date/Time Associated Diagnosis Comments XR CHEST 2V 03/27/2024 4:02 PM EDT documented in this encounter Results * XR CHEST 2V (03/27/2024 4:02 PM EDT) Anatomical Region Laterality Modality Other 03/27/2024 4:02 PM EDT Narrative 03/27/2024 4:05 PM EDT The [address] [address] XRay Report Signed Patient: DIANA CHAMPOIN MR#: [id number] : 1955 Acct:[id number] Age/Sex: 68 / F ADM Date: 03/27/24 Loc: RAD Attending Dr: Shaikh Lev Velasquez Ordering Physician: Shaikh Eva Ohara Date of Service: 03/27/24 Procedure(s): XR chest 2V Accession Number(s): [id number] cc: Shaikh Eva Ohara [address] [id number] Patient Name: DIANA CHAMPION MRN: [id number] date: 1955 Sex: F Assigned Patient Location: [facility] Current Patient Location: [facility] Accession/Order Number: [id number] Exam Date: 03/27/2024 14:40 Report Date: 03/27/2024 [...] Vanessa M.D. Signed By: 03/27/24 1605 DD/ 160 TD/TT: Sanitation Officer: Procedure Note Radiology, Radiologist, MD - 03/27/[address] [address] XRay Report Signed Patient: DIANA CHAMPION AMR#: [id number] : 1955cct:[id number] Age/Sex: 68 / FADM Date: 03/27/24 Loc: RAD Attending Dr: Shaikh Lev Velasquez Ordering Physician: Shaikh Eva Ohara Date of Service: 03/27/24 Procedure(s): XR chest 2V Accession Number(s): [id number] cc: Shaikh Eva Ohara The [address] [address] Patient Name: DIANA CHAMPION MRN: [id number] date: 1955 Sex: F Assigned Patient Location: RAD Current Patient Location: [facility] Accession/Order Number: [id number] Exam Date: 03/27/2024 14:40 Report Date: 03/27/2024 [...] M.D. Signed By:03/27/24 1605 DD/ 1602 TD/TT: Sanitation Officer: Shaikh Lev DRAPER [facility] Final Result documented in this encounter Visit Diagnoses Not on filedocumented in this encounter Additional Health Concerns Assessment Noted Time PHQ-9 Depression Total Score: 7 11/02/20 23 3:03 PM EST documented as of this encounter Care Teams Batch Heat Treat Operator Relationship Specialty Start Date End Date Shaikh Ohara MD [address] [place] [address] PCP - General Internal Medicine 12/28/23 06/09/24 Tapan Barboza MD [address] [place] [address] PCP - General Family Medicine 06/10/24 Ariella Mathis DO [address] [place] [address] Referring Physician Neurology 01/02/24 Mae Reese NP [address] [place] [address] Nurse Practitioner Family Medicine 06/10/24 documented as of this encounter
--- OUTSIDE RECORDS SUMMARY | 2025-07-05 15:16 | XMS_ITS | Encounter Summary ---
Author Organization [facility] Address [address] [place] [address] Care Team Providers Care Roll Up Operator Name Role Phone Shaikh BONNY Ohara Primary Care Provider [phone] [facility] Unavailable [phone] Kaylene López MD Primary Care Provider [phone] Encounter Details Date Type Department Care Team (Late st Contact Info) Description 06/28/2022 Orders Only [facility] [address] [place] [address] Farrah Denny MA Social History [...] on filedocumented in this encounter Care Teams Roll Up Operator Relationship Specialty Start Date End Date Shaikh Ohara MD PCP - General Family Medicine 03/22/23 01/21/25 Kaylene López MD [address] [place] [address] PCP - General Nurse Practitioner 01/22/25 Shay-Mag Peral[address] RRT [facility] Respiratory Therapy/Pulmonary Disease Department [address] [place] [address] Respiratory Navigator Respiratory Therapy 08/07/2411/13/24 documented as of this encounter
--- OUTSIDE RECORDS SUMMARY | 2025-07-05 15:16 | XMS_ITS | Encounter Summary ---
Author Organization [facility] Address [address] [place] [address] Care Team Providers Care Manager Event Name Role Phone Shaikh BONNY Ohara Primary Care Provider [phone] Ariella Mathis DO Unavailable [phone] Tapan Barboza MD Primary Care Provider [phone] Mae Reese BACKUP ADMINISTRATIVE COORDINATOR Unavailable [phone] Encounter Details Date Type Department Care Team (Late st Contact Info) Description 04/03/2024 Clinisync Result Encounter [facility] External Department Unsolicited Shaikh Ohara MD [address] [place] [address] Social History Tobacco Use Types Packs/Day Years [...] How often do you attend [facility] or worship services? More than 4 times per year 10/26/2023 Do you belong to any clubs o r organizations such as hoahaoism groups, unions, fraternal or athletic groups, or [...] Recorded Patient Health Questionnaire-2 Score 0 04/03/2024 [facility] of Occupat ional Health - [...] -2 Score 0 04/03/2024 8:44 AM EDT Tony Butts M A documented as of this encounter Plan of Treatment Upcoming Encounters Date Type Department Care Team (Late st Contact Info) Description 07/16/2025 2:45 PM EDT Office Visit [facility] [address] [place] [address] Denise Lazo MD [address] [place] [address] 07/17/2025 9:00 AM EDT Office Visit [facility] [address] [place] [address] Kaylene López NP [address] [place] [address] 12/15/2026 9:00 AM EST [facility] [address] [facility] [place] [address] Yuri Bowers PA [address] [place] [address] documented as of this encounter Procedures Procedure Name Priority Date/Time Associated Diagnosis Comments XR CHEST 2V 04/03/2024 4:27 PM EDT documented in this encounter Results * XR CHEST 2V (04/03/2024 4:27 PM EDT) Anatomical Region Laterality Modality Other 04/03/2024 4:27 PM EDT Narrative 04/03/2024 4:30 PM EDT The [address] [address] XRay Report Signed Patient: DIANA CHAMPION MR#: [id number] : 1955 Acct:[id number] Age/Sex: 68 / F ADM Date: 04/03/24 Loc: RAD Attending Dr: Shaikh Lev Velasquez Ordering Physician: Shaikh Eva Ohara Date of Service: 04/03/24 Procedure(s): XR chest 2V Accession Number(s): [id number] cc: Shaikh Eva Ohara The [place] [address] Patient Name: DIANA CHAMPION MRN: [id number] date: 1955 Sex: F Assigned Patient Location: [facility] Current Patient Location: [facility] Accession/Order Number: [id number] Exam Date: 04/03/2024 15:40 Report Date: 04/03/2024 [...] Signed By: 04/03/24 1630 DD/ 1627 TD/TT: Spray Pilot: Procedure Note Radiology, Radiologist, MD - 04/03/2024 [place] [address] XRay Report Signed Patient: DIANA CHAMPION AMR#: [id number] : 1955cct:[id number] Age/Sex: 68 / FADM Date: 04/03/24 Loc: RAD Attending Dr: Shaikh Lev Velasquez Ordering Physician: Shaikh Eva Ohara Date of Service: 04/03/24 Procedure(s): XR chest 2V Accession Number(s): [id number] cc: Shaikh Eva Ohara The [address] [address] Patient Name: DIANA CHAMPION MRN: [id number] date: 1955 Sex: F Assigned Patient Location: RAD Current Patient Location: RAD Accession/Order Number: [id number] Exam Date: 04/03/2024 15:40 Report Date: 04/03/2024 [...] M.D. Signed By:04/03/24 1630 DD/ 1627 TD/TT: Spray Pilot: us Shaikh Lev DRAPER [facility] Final Result documented in this encounter Visit Diagnoses Not on filedocumented in this encounter Additional Health Concerns Assessment Noted Time PHQ-9 Depression Total Score: 7 11/02/20 23 3:03 PM EST documented as of this encounter Care Teams Manager Event Relationship Specialty Start Date End Date Shaikh Ohara MD [address] [place] [address] PCP - General Internal Medicine 12/28/23 06/09/24 Tapan Barboza MD [address] [place] [address] PCP - General Family Medicine 06/10/24 Ariella Mathis DO [address] [place] [address] Referring Physician Neurology 01/02/24 Mae Reese NP [address] [place] [address] Nurse Practitioner Family Medicine 06/10/24 documented as of this encounter
--- OUTSIDE RECORDS SUMMARY | 2025-07-05 15:16 | XMS_ITS | Encounter Summary ---
Author Organization [facility] Address [address] [facility] [place] [address] Care Team Providers Care Laborer [employer] Name Role Phone Shaikh BONNY Ohara Primary Care Provider [phone] Ariella Mathis DO Unavailable [phone] Tapan Barboza MD Primary Care Provider [phone] Mae Reese PAVING INSPECTOR Unavailable [phone] Encounter Details Date Type Department Care Team [...] any clubs o r organizations such as judaism groups, unions, fraternal or athletic groups, or [...] Recorded Patient Health Questionnaire-2 Score 0 03/27/2024 [facility] - Occupational [...] place to sleep or slept in a care home (including now)? No 10/26/2023 Comments Unknown [...] Dermatology [address] [place] [phone] Denise Lazo MD [address] [place] [address] 07/17/2025 9:00 AM EDT Office Visit [facility] [address] [place] [address] Kaylene López NP [address] [place] [address] 12/15/2026 9:00 AM EST Office Visit [facility] [address] [place] [address] Yuri Bowers PA [address] [facility] [place] [address] documented as of this encounter Procedures Procedure Name Priority Date/Time Associated Diagnosis Comments XR THORACIC SPINE 3V 03/27/2024 7:50 AM EDT documented in this encounter Results * XR THORACIC SPINE 3V (03/27/2024 7:50 AM EDT) Anatomical Region Laterality Modality Other 03/27/2024 7:50 AM EDT Narrative 03/27/2024 7:53 AM EDT The [address] [address] XRay Report Signed Patient: DIANA CHAMPION MR#: [id number] : 1955 Acct:[id number] Age/Sex: 68 / F ADM Date: 03/26/24 Loc: RAD Attending Dr: Jose Saucedo NP Ordering Physician: Jose Saucedo NP Date of Service: 03/26/24 Procedure(s): XR thoracic spine 3V Accession Number(s): [id number] cc: Shaikh Eva Ohara; Jose Saucedo NP The [address] [address] Patient Name: DIANA CHAMPION MRN: [id number] date: 1955 Sex: F Assigned Patient Location: RAD Current Patient Location: Accession/Order Number: [id number] Exam Date: 03/26/2024 15:13 Report Date: 03/27/2024 07:50 At the request of: JOSE SAUCEDO Procedure: XR thoracic spine 3V EXAMINATION: XR [...] Signed By: 03/27/24 0753 DD/ 0750 TD/TT: Food Adviser: Procedure Note Radiology, Radiologist, MD - 03/27/2024 [place] [address] XRay Report Signed Patient: DIANA CHAMPION AMR#: [id number] : 1955cct:[id number] Age/Sex: 68 / FADM Date: 03/26/24 Loc: [facility] Attending Dr: Jose Saucedo NP Ordering Physician: Jose Saucedo NP Date of Service: 03/26/24 Procedure(s): XR thoracic spine 3V Accession Number(s): [id number] cc: Shaikh Eva Ohara; Jose Saucedo NP The [place] [address] Patient Name: DIANA CHAMPION MRN: [id number] date: 1955 Sex: F Assigned Patient Location: [facility] Current Patient Location: Accession/Order Number: [id number] Exam Date: 03/26/2024 15:13 Report Date: 03/27/2024 07:50 At the request of: JOSE SAUCEDO Procedure: XR thoracic spine 3V EXAMINATION: XR [...] M.D. Signed By:03/27/24 0753 DD/ 0750 TD/TT: Food Adviser: us Generic External Data Provider [facility] Final Result documented in this encounter Visit Diagnoses Not on filedocumented in this encounter Additional Health Concerns Assessment Noted Time PHQ-9 Depression Total Score: 7 11/02/20 23 3:03 PM EST documented as of this encounter Care Teams Laborer Golf Course Relationship Specialty Start Date End Date Shaikh Ohara MD [address] [place] [phone] PCP - General Internal Medicine 12/28/23 06/09/24 Tapan Barboza MD [address] [place] [address] PCP - General Family Medicine 06/10/24 Ariella Mathis DO [address] [place] [address] Referring Physician Neurology 01/02/24 Mae Reese NP [address] [place] [phone] Nurse Practitioner Family Medicine 06/10/24 documented as of this encounter
--- OUTSIDE RECORDS SUMMARY | 2025-07-05 15:16 | XMS_ITS | Patient Health Record ---
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 Date of Service: 11/13/24 Procedure(s): CT chest wo con Accession Number(s): [id number] cc: AIDA BLANC [place] [address] Patient Name: DIANA CHAMPION MRN: [id number] date: 1955 Sex: F Assigned Patient Location: [place] Current Patient Location: [place] Accession/Order Number: [id number] Exam Date: 11/13/2024 13:54 Report Date: 11/13/2024 [...] Signed By: 11/13/24 1422 DD/ 1419 TD/TT: Flight Crew Ordnanceman: [place] [address] CT Scan Report Signed Patient: KRISTEN CHAMPION MR#: [id number] : 1955 Acct:[id number] Age/Sex: 69 / F ADM Date: 11/12/24 Loc: MS 231-[address]: Shaikh Lev Velasquez Ordering Physician: Bo Mcclain D.O. Date of Service: 11/13/24 Procedure(s): CT mine st wo con Accession Number(s): [id number] cc: AIDA BLANC [place] [id number] Patient Name: DIANA CHAMPION MRN: [id number] date: 1955 Sex: F Assigned Patient Location: MS Current Patient Location: MS Accession/Order Numb er: [id number] Exam Date: 11/13/2024 13:54 Report Date: 11/13/2024 [...] Signed By: 11/13/24 1422 DD/ 1419 TD/TT: Flight Crew Ordnanceman: PROF JOSSELINE Ramirez ([facility]) Reviewed date:01/05/2025 12:57:10 PM Interpretation: Performing Lab: Notes/Report: [facility] , Sodium 140 136-145 mmol/L Potassium 4.3 3.5-5.1 mmol/L Chloride 103 98-107 mmol/L Carbon Dioxide 29.2 21.0-32.0 mmol/L Anion Gap 12.1 Glucose 208 74-106 mg/dL Blood Urea Nitrogen 24.0 7.0-18.0 mg/dL Creatinine 1.23 0.55-1.02 mg/dL Estimated GFR ( Ayana 53 >=60 mL/min/1.73m 2 Estimated GFR (Non- Ktahy 43 >=60 mL/min/1.73m 2 BUN Creatinine Ratio 19.5 Calcium 9.5 8.5-10.1 mg/dL Performing Lab: see note ML - [facility] LB Venous Blood Gas Reviewed date:01/05/2025 12:57:10 PM Interpretation: Performing Lab: Notes/Report: [facility] , pH VBG 7.434 7.330-7.430 PCO2 VBG 45.8 40.0-52.0 mmHg Performing Lab: see note - [facility] LB XR chest 2V Reviewed date:01/05/2025 12:57:10 PM Interpretation: Performing Lab: Notes/Report: Source Facility: [place] [address] [place] [address] XRay Report Signed Patient: DIANA CHAMPION MR#: [id number] : 1955 Acct:[id number] Age/Sex: 69 / F ADM Date: 01/02/25 Loc: MS 214-[address]: Kandy Zepeda M.D. Ordering Physician: Kandy Zepeda M.D. Date of Service: 01/05/25 Procedure(s): XR chest 2V Accession Number(s): [id number] cc: AIDA BLANC; Kandy Zepeda M.D. [place] [id number] Patient Name: DIANA CHAMPION MRN: [id number] date: 1955 Sex: F Assigned Patient Location: MS Current Patient Location: MS Accession/Order Number: [id number] Exam Date: 01/05/2025 09:39 Report Date: 01/05/2025 [...] Medina Jr., D.O.01/05/2025 9:42 AM Dictation Location: [facility] Electronically authenticated by: [id number] Y Date: 01/05/2025 09:42 Dictated By: Marcos Medina M.D. Signed By: 01/05/25944 DD/ 1 TD/TT: Flight Crew Ordnanceman: [place] [address] XRay Report Signed Patient: KRISTEN CHAMPION MR#: [id number] : 1955 Acct:[id number] Age/Sex: 69 / F ADM Date: 01/02/25 Loc: MS 214-[address]: Samuel Zepeda M.D. Ordering Physician: Kandy Zepeda M.D. Date of Service: 01/05/25 Procedure(s): XR mine st 2V Accession Number(s): [id number] cc: AIDA BLANC; Kandy Zepeda M.D. [place] [id number] Patient Name: DIANA CHAMPION MRN: [id number] date: 1955 Sex: F Assigned Patient Location: MS Current Patient Location: [place] Accession/Order Numb er: [id number] Exam Date: 01/05/2025 09:39 Report Date: 01/05/2025 [...] Medina Jr., D.O.01/05/2025 9:42 AM Dictation Location: [facility] Electronically authenticated by: [id number] Y Date: 01/05/2025 09:42 Dictated By: Marcos Medina M.D. Signed By: 01/05/25944 DD/ 1 TD/TT: Flight Crew Ordnanceman: INFLUENZA A AND B AG Reviewed date:01/08/2025 09:36:16 PM Interpretation: Performing Lab: Notes/Report: [facility] , Influenza Virus A Antigen [...] Performing Lab: see note ML - [facility] LB LACTATE or LACTIC ACID Reviewed date:01/08/2025 09:36:16 PM Interpretation: Performing Lab: Notes/Report: [facility] , Lactate/Lactic Acid 1.5 0.4-2.0 mmol/L Performing Lab: see note ML - [facility] LB MAGNESIUM Reviewed date:01/08/2025 09:36:16 PM Interpretation: Performing Lab: Notes/Report: [facility] , Magnesium 2.1 1.8-2.4 mg/dL Performing Lab: see note ML - [facility] LB RSV Reviewed date:01/08/2025 09:36:16 PM Interpretation: Performing Lab: Notes/Report: [facility] , Respiratory Syncytial Virus Not Detected NOT DETECTE Performing Lab: see note ML - [facility] LB SARS-CoV-2 Ag* Reviewed date:01/08/2025 09:36:16 PM Interpretation: Performing Lab: Notes/Report: [facility] , SARS-CoV-2 Ag POSITIVE NEGATIVE CALLED TO JESSICA BENITEZ, RN @ [phone] This test has not been FDA cleared [...] Performing Lab: see note ML - [facility] LB BNP Reviewed date:01/09/2025 09:12:32 PM Interpretation: Performing Lab: Notes/Report: [facility] , NT Pro B Type Natriuretic Pept 123.0 <=900.0 pg/mL Performing Lab: see note ML - [facility] LB CBC AUTO DIFF Reviewed date:01/09/2025 09:12:32 PM Interpretation: Performing Lab: Notes/Report: [facility] , White Blood Count 12.9 [...] Performing Lab: see note ML - [facility] LB PROF CHEM 8 (BAS METB) Reviewed date:01/09/2025 09:12:32 PM Interpretation: Performing Lab: Notes/Report: [facility] , Sodium 138 136-145 mmol/L [...] Performing Lab: see note ML - [facility] LB Manual Differential Reviewed date:01/09/2025 09:12:32 PM Interpretation: Performing Lab: Notes/Report: [facility] , Segmented Neutrophils % Manual [...] Performing Lab: see note ML - [facility] LB BLOOD GASES BTY Reviewed date:01/12/2025 09:41:19 AM Interpretation: Performing Lab: Notes/Report: [facility] , pH ABG 7.391 7.350-7.450 [...] Site L RAD Performing Lab: see note ML - [facility] LB BNP Reviewed date:01/12/2025 09:41:19 AM Interpretation: Performing Lab: Notes/Report: [facility] , NT Pro B Type Natriuretic Pept 266.0 <=900.0 pg/mL Performing Lab: see note ML - [facility] LB CBC AUTO DIFF Reviewed date:01/12/2025 09:41:19 AM Interpretation: Performing Lab: Notes/Report: [facility] , White Blood Count 16.1 [...] 9.5-13.5 fL Performing Lab: see note - [facility] LB PROF CHEM 8 (BAS METB) Reviewed date:01/12/2025 09:41:19 AM Interpretation: Performing Lab: Notes/Report: [facility] , Sodium 137 136-145 mmol/L [...] 8.6 8.5-10.1 mg/dL Performing Lab: see note ML - [facility] LB Manual Differential Reviewed date:01/12/2025 09:41:19 AM Interpretation: Performing Lab: Notes/Report: [facility] , Segmented Neutrophils % Manual [...] Performing Lab: see note ML - [facility] LB CBC AUTO DIFF Reviewed date:01/12/2025 09:41:19 AM Interpretation: Performing Lab: Notes/Report: [facility] , White Blood Count 10.7 [...] 9.4 9.5-13.5 fL Performing Lab: see note - [facility] LB Manual Differential Reviewed date:01/12/2025 09:41:19 AM Interpretation: Performing Lab: Notes/Report: [facility] , Segmented Neutrophils % Manual [...] 1 0 3/uL Performing Lab: see note - [facility] UA RANDOM W or MICROSCOPIC Reviewed date:01/13/2025 02:13:13 PM Interpretation: Performing Lab: Notes/Report: [facility] , Color Urine LT. YELLOW YELLOW Clarity Urine CLEAR CLEAR Specific [place] Urine 1.010 1.005-1.025 pH Urine 6.0 5.0-9.0 [...] Culture Indicated NO Performing Lab: see note - [facility] LB BNP Reviewed date:01/13/2025 02:13:13 PM Interpretation: Performing Lab: Notes/Report: [facility] , NT Pro B Type Natriuretic Pept 519.0 <=900.0 pg/mL Performing Lab: see note - [facility] CBC AUTO DIFF Reviewed date:01/13/2025 02:13:13 PM Interpretation: Performing Lab: Notes/Report: [facility] , White Blood Count 8.1 [...] Performing Lab: see note ML - [facility] LB PROF CHEM 8 (BAS METB) Reviewed date:01/13/2025 02:13:13 PM Interpretation: Performing Lab: Notes/Report: [facility] , Sodium 139 136-145 mmol/L [...] Performing Lab: see note ML - [facility] LB Manual Differential Reviewed date:01/12/2025 09:41:19 AM Interpretation: Performing Lab: Notes/Report: [facility] , Segmented Neutrophils % Manual [...] 3/uL Anisocytosis 1+ Performing Lab: see note ML - [facility] VANCOMYCIN TROUGH Reviewed date:01/13/2025 02:13:13 PM Interpretation: Performing Lab: Notes/Report: [facility] , Vancomycin Trough 15.0 5.0-20.0 ug/mL Performing Lab: see note ML - [facility] PROF CHEM 8 (BAS METB) Reviewed date:01/12/2025 09:41:19 AM Interpretation: Performing Lab: Notes/Report: [facility] , Sodium 135 136-145 mmol/L [...] 8.5 8.5-10.1 mg/dL Performing Lab: see note ML - [facility] CBC AUTO DIFF Reviewed date:01/12/2025 09:41:19 AM Interpretation: Performing Lab: Notes/Report: [facility] , White Blood Count 11.1 [...] fL Performing Lab: see note ML - [facility] LB BNP Reviewed date:01/12/2025 09:41:19 AM Interpretation: Performing Lab: Notes/Report: [facility] , NT Pro B Type Natriuretic Pept 548.0 <=900.0 pg/mL Performing Lab: see note ML - [facility] LB PROF CHEM 8 (BAS METB) Reviewed date:01/12/2025 09:41:19 AM Interpretation: Performing Lab: Notes/Report: [facility] , Sodium 136 136-145 mmol/L [...] mg/dL Performing Lab: see note ML - [facility] LB BNP Reviewed date:01/12/2025 09:41:19 AM Interpretation: Performing Lab: Notes/Report: [facility] , NT Pro B Type Natriuretic Pept 242.0 <=900.0 pg/mL Performing Lab: see note ML - [facility] LB Lower Respiratory Culture Reviewed date:01/14/2025 [...] S F Lower Respiratory Culture Performed at: [facility] Lower Respiratory Culture WILL FOLLOW O:GNR Isolated O:PSMS Isolated Organism: 8.2 Antibiotic Interpretation CUCO Status Cefepime Cefepime S F Ceftazidime Ceftazidime S F Ciprofloxacin Ciprofloxacin S F Levofloxacin Levofloxacin S F Meropenem Meropenem S F Tobramycin Tobramycin S F Piperacillin/Tazobact am Piperacillin/Tazobact am S F Ceftazidime/Avibactam Ceftazidime/Avibactam S F Ceftolozane/Tazobacta m Ceftolozane/Tazobacta m S F Lower Respiratory Culture [address] [place], [place] [id number] Lower Respiratory Culture WILL FOLLOW O:GNR Isolated O:PSMS Isolated Organism: 8.2 Antibiotic Interpretation CUCO Status Cefepime Cefepime S F Ceftazidime Ceftazidime S F Ciprofloxacin Ciprofloxacin S F Levofloxacin Levofloxacin S F Meropenem Meropenem S F Tobramycin Tobramycin S F Piperacillin/Tazobact am Piperacillin/Tazobact am S F Ceftazidime/Avibactam Ceftazidime/Avibactam S F Ceftolozane/Tazobacta m Ceftolozane/Tazobacta m S F Lower Respiratory Culture [employer]: Raphael Marrero PhD, Phone: [phone] Lower Respiratory Culture WILL FOLLOW O:GNR Isolated O:PSMS Isolated Organism: 8.2 Antibiotic Interpretation UCCO Status Cefepime Cefepime S F Ceftazidime Ceftazidime [...] LC - [facility] LB SEE REPORT - [facility] Id information not found for OBX-specific digital content producer legend Gram Stain Evaluation Reviewed date:01/14/2025 04:11:49 PM [...] 4 See Below For Report Result 4 TRAY DELIVERY AIDE Performing Lab: see note LC - [facility] LB Result 3 Reviewed date:01/14/2025 04:11:49 PM Interpretation: Performing Lab: Notes/Report: [facility] , Result 3 See Below For Report Result 3 TRAY DELIVERY AIDE Performing Lab: see note LC - [facility] LB Result 2 Reviewed date:01/14/2025 04:11:49 PM Interpretation: Performing Lab: Notes/Report: [facility] , Result 2 See Below For Report Result 2 TRAY DELIVERY AIDE Performing Lab: see note LC - [facility] [...] Lab: see note LC - [facility] LB PROF CHEM 8 (BAS METB) Reviewed date:01/07/2025 07:51:37 PM Interpretation: Performing Lab: Notes/Report: [facility] , Sodium 139 136-145 mmol/L Potassium 4.3 [...] 8.5-10.1 mg/dL Performing Lab: see note - [facility] LB CA echo doppler complete Reviewed date:01/06/2025 09:44:14 PM Interpretation: Performing Lab: Notes/Report: Source Facility: [facility]-[address] [place] [address] [place] [address] Cardiology Report Signed Patient: DIANA CHAMPION MR#: [id number] : 1955 Acct:[id number] Age/Sex: 69 / F ADM Date: 01/02/25 Loc: MS 214-[address]: Kandy Zepeda M.D. Ordering Physician: Kandy Zepeda M.D. Date of Service: 01/06/25 Procedure(s): CA echo doppler complete Accession Number(s): [id number] cc: AIDA BLANC; Kandy Zepeda M.D. Patient Name: DIANA CHAMPION MR#: [id number] : 1955 Exam Date: 01/06/2025 Ordering Doctor: [...] Area (VTI): 2.34 cm2, 2.34 cm2 Deceleration Cotton: Pressure Half-Time: Peak Velocity(Antegrade Flow): 1.33 m/s [...] M.D. Signed By: 01/06/251807 DD/ 06 TD/TT: Flight Crew Ordnanceman: The [address] [address] Cardiology Report Signed Patient: KRISTEN CHAMPION MR#: [id number] : 1955 Acct:[id number] Age/Sex: 69 / F ADM Date: 01/02/25 Loc: MS 214-[address]: Samuel Zepeda M.D. Ordering Physician: Kandy Zepeda M.D. Date of Service: 01/06/25 Procedure(s): CA ech o doppler complete Accession Number(s): [id number] cc: AIDA BLANC; Kandy Zepeda M.D. Patient Name: DIANA CHAMPION MR#: [id number] : 1955 Exam Date: 01/06/2025 Ordering Doctor: [...] evidence of mitral valve stenosis. There is n o mitral annular calcification. Trivial mitral regurgitation. AORTIC [...] Area (VTI): 2.34 cm2, 2.34 cm2 Deceleration Cotton: Pressure Half-Time: Peak Velocity(Antegr mary Flow): 1.33 [...] M.D. Signed By: 01/06/251807 DD/ 06 TD/TT: Flight Crew Ordnanceman: PROF JOSSELINE Ramirez ([facility]) Reviewed date:01/06/2025 09:44:14 PM Interpretation: Performing Lab: Notes/Report: [facility] , Sodium 140 136-145 mmol/L [...] 9.3 8.5-10.1 mg/dL Performing Lab: see note ML - [facility] LB BNP Reviewed date:01/06/2025 09:44:14 PM Interpretation: Performing Lab: Notes/Report: Comment use blood from this am or skip [facility] , NT Pro B Type Natriuretic Pept 3735.0 <=900.0 pg/mL RESULTS CALLED TO France Winslow RN Performing Lab: see note ML - [facility] LB Venous Blood Gas Reviewed date:08/13/2024 06:54:33 AM Interpretation: Performing Lab: Notes/Report: [facility] , pH VBG 7.394 7.330-7.430 PCO2 VBG 52.9 40.0-52.0 mmHg Performing Lab: see note ML - [facility] LB PROF JOSSELINE Ramirez ([facility]) Reviewed date:01/14/2025 09:26:10 AM Interpretation: Performing Lab: Notes/Report: [facility] , Sodium 135 136-145 mmol/L [...] mg/dL Performing Lab: see note ML - [facility] LB CBC AUTO DIFF Reviewed date:01/14/2025 09:26:10 AM Interpretation: Performing Lab: Notes/Report: [facility] , White Blood Count 9.7 [...] 0.00-0.03 10 3/uL Performing Lab: see note - [facility] LB BNP Reviewed date:01/14/2025 09:26:10 AM Interpretation: Performing Lab: Notes/Report: [facility] , NT Pro B Type Natriuretic Pept 452.0 <=900.0 pg/mL Performing Lab: see note ML - [facility] LB Reason For Referral No Information Medications Medication SIG (Take, Route, Frequency, Duration) Notes Start Date End Date Status Doxycycline Hyclate 100 MG 1 tablet Orally BID for 10 days 05/01/2025 Active Albuterol Sulfate (2.5 MG/3ML) 0.083% 3mL Inhalation QID for 90 days Dispense #360 nebules Active Montelukast Sodium 10 MG 1 tablet Orally Once a day for 90 days Active Albuterol Sulfate HFA 108 (90 Base) MCG/ACT 2 puffs as needed for SOB Inhalation every 4 hrs for 90 days Dispense #3 inhalers Active Fluticasone Propionate 50 MCG/ACT 2 squirts in each nostril Nasally QD for 90 days Dispense #3 bottles Active predniSONE 20 MG 3 tabs x 3 days, 2 tabs x 3 days, 1 tab x 3 days Orally Once a day for 9 days Take with food 05/01/2025 Active Clotrimazole 10 MG 1 neelima Mouth/Throat QID for 10 days Dissolve in mouth Dissolve in mouth 05/02/2023 Active Omeprazole 20 MG 1 capsule 30 minutes before morning meal Orally BID Active Pramipexole Dihydrochloride 0.25 MG Oral for 30 Days Active Breztri Aerosphere 160-9-4.8 MCG/ACT 2 puffs Inhalation Twice a day for 90 days Rinse after use; Dispense #3 inhalers Patient has myopathy and unable to generate enough inspiratory force for dry powder inhalers 02/24/2025 Active Mucinex 600 MG 1-2 tablets as needed for congestion Orally BID for 90 days Active buPROPion HCl ER (XL) 150 MG Oral for 30 Days Active Pregabalin 75 MG Oral for 30 Days Active Ohtuvayre 3 MG/2.5ML 2.5 mL Inhalation Twice a day for 90 days 04/02/2025 Active traZODone HCl 100 MG 1 tablet at bedtime as needed Orally Once a day Active Iron 325 (65 Fe) MG 1 tablet Orally Every other day Active Sodium Chloride 0.9 % 3mL Inhalation TID for 90 days Active Trospium Chloride ER 60 MG Oral for 30 Days Active Latanoprost 0.005 % INSTILL 1 DROP INTO EACH EYE AT BEDTIME Ophthalmic for 45 Days Active Vitamin D3 25 MCG (1000 UT) 1 capsule Orally Once a day Active Magnesium Oxide 400 MG 1 tablet as needed Orally Once a day Active Baclofen 10 MG Oral for 30 Days Active Immunizations Vaccine Route Administration Date Status Comme nts Arexvy Unknown 08/18/2023 Administered Comirnaty Lumidigm Syringe Pre -Filled 30 mcg/0.3 mL Unknown 09/20/2024 Administered Flu, Fluad (09438) 65 yrs + High Dose Seasonal (1696-2580) Unknown 09/06/2024 Administered Flu, Fluzone High-Dose (2022 -2023) (03052) 65 yrs+ Unknown 08/26/2023 Administered Pneumococcal (Pneumovax [...] Problem Status W/U Status Risk Notes Problem 143966723 Morbid (severe) obesity due to excess calories (E66.01) Active confirmed Problem 082624454 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 Problem Information temporarily unavailable Chronic respiratory failure with hypoxia (J96.11) Active confirmed Problem Information temporarily unavailable Other pulmonary collapse (J98.19) Active confirmed Dynamic airway collapse Problem 113549548 [facility] (current) use of inhaled steroids (Z79.51) Active confirmed Problem Information temporarily unavailable Chronic obstructive pulmonary disease (J44.9) Active confirmed Prior treatment: Trelegy 100 > Breo 100 > Spiriva > albuterol > Atrovent Problem Information temporarily unavailable Restless leg syndrome (G25.81) Active confirmed Problem Information temporarily unavailable Depression (F32.9) Active confirmed Problem Information temporarily unavailable Allergic rhinitis (J30.9) Active confirmed Problem Information temporarily unavailable Restrictive lung disease (J98.4) Active confirmed Problem Information temporarily unavailable Multiple pulmonary nodules (R91.8) Active confirmed Problem Information temporarily unavailable Ground glass opacity present on imaging of lung (R91.8) Active confirmed Problem Information temporarily unavailable Gastroesophageal reflux disease (K21.9) Active confirmed Problem Information temporarily unavailable Asthma with acute exacerbation (J45.901) Active confirmed Problem Information temporarily unavailable Daytime hypersomnolence (G47.19) Active confirmed Problem Information temporarily unavailable [facility] pneumonia (J18.9) Active confirmed Problem Information temporarily unavailable Other secondary pulmonary hypertension (I27.29) Active confirmed Problem 48861156 Allergic rhiniti s, unspecified seasonality, unspecified trigger (J30.9) Active confirmed Problem Information temporarily unavailable Lumbar stenosis (M48.061) Active confirmed Problem Information temporarily unavailable History of COVID-19 (Z86.16) Active confirmed 04/04/2023: Severe associated hypoxic respiratory failure Problem Information temporarily unavailable Body mass index [BMI] 40.0-44.9, adult (Z68.41) Active confirmed Vital Signs Heart Rate 73 /min 05/01/2025 Temperature 97.0 degrees Fahrenheit 05/01/2025 Respiratory Rate 20 /min 05/01/2025 Oximetry 95 % 05/01/2025 Blood pressure diastolic 75 mm Hg 05/01/2025 Height 61 in 05/01/2025 Blood pressure systolic 124 mm Hg 05/01/2025 Weight 236.0 lbs 05/01/2025 BMI 44.59 kg/m2 05/01/2025 Encounters Encounter Location Date Provider Diagnosis [facility] [place] [address] [place] [address] 07/23/2024 [facility] Pulmonary [facility] [address] [place] [address] 08/12/2024 [facility] [place] [address] [place] [address] 09/12/2024 [facility] [place] [address] [place] [address] 11/04/2024 [facility] Pulmonary [facility] [address] [place] [address] 11/12/2024 [facility] Chronic obstructive pulmonary disease J44.9 [facility] [place] [address] [facility] [place] [address] 11/28/2024 [facility] Pulmonary [facility] [address] [facility] [place] [address] 12/09/2024 [facility] Pulmonary [facility] [address] [facility] [place] [address] 01/08/2025 [facility] Pulmonary [facility] [address] [facility] [place] [address] 01/14/2025 [facility] [address] [facility] [place] [address] 01/14/2025 Kwabena Zepeda Pulmonary [facility] [address] [facility] [place] [address] 02/24/2025 [facility] Chronic obstructive pulmonary disease J44.9 Pulmonary [facility] [address] [facility] [place] [address] 06/16/2025 [facility] Pul[facility] [address] [facility] [place] [address] 08/06/2024 [facility] 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 ; Restrictive lung disease J98.4 ; Chronic obstructive pulmonary disease J44.9 ; Other pulmonary collapse J98.19 ; Chronic respiratory failure with hypoxia J96.11 ; Allergic rhinitis J30.9 ; Daytime hypersomnolence G47.19 ; Restless leg syndrome G25.81 ; direct care worker (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) use of inhaled steroids Z79.51 ; History of COVID-19 Z86.16 ; Morbid (severe) obesity due to excess calories E66.01 and Body mass index [BMI] 40.0-44.9, adult Z68.41 Pulmonary [facility] [address] [facility] [place] [address] 12/10/2024 [facility] Chronic obstructive pulmonary disease with (acute) exacerbation J44.1 and Candidal stomatitis B37.0 Pulmonary [facility] [address] [facility] [place] [address] 10/22/2024 [facility] Chronic obstructive pulmonary disease J44.9 ; Other pulmonary collapse J98.19 ; Seborrheic dermatitis, unspecified L21.9 ; 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 ; Chronic respiratory failure with hypoxia J96.11 ; [facility] (current) use of inhaled steroids Z79.51 ; History of COVID-19 Z86.16 and Morbid (severe) obesity due to excess calories E66.01 [facility] [address] [place] [address] 05/01/2025 [facility] Chronic obstructive pulmonary disease J44.9 ; 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 ; Other pulmonary collapse J98.19 ; Chronic respiratory failure with hypoxia J96.11 ; Other secondary pulmonary hypertension I27.29 ; Allergic rhinitis J30.9 ; Oral candidiasis B37.0 ; [facility] (current) use of inhaled steroids Z79.51 ; Morbid (severe) obesity due to excess calories E66.01 and History of COVID-[address] [address] 09/03/2024 [facility] Chronic obstructive pulmonary disease J44.9 ; Healthcare-associated pneumonia J18.9 ; Other pulmonary collapse J98.19 ; 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 ; Encounter for immunization Z23 ; Chronic respiratory failure with hypoxia J96.11 ; Allergic rhinitis J30.9 ; Daytime hypersomnolence G47.19 ; direct care worker (current) use of inhaled steroids Z79.51 ; History of COVID-19 Z86.16 ; Morbid (severe) obesity due to excess calories E66.01 and Body mass index [BMI] 40.0-44.9, adult Z68.41 [facility] [address] [place] [address] 04/02/2025 [facility] Chronic obstructive pulmonary disease J44.9 ; Other pulmonary collapse J98.19 ; 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 ; Other secondary pulmonary hypertension I27.29 ; Chronic respiratory failure with hypoxia J96.11 ; [facility] (current) use of inhaled steroids Z79.51 ; History of COVID-19 Z86.16 and Morbid (severe) obesity due to excess calories E66.[address] [address] 01/29/2025 [facility] Chronic obstructive pulmonary disease J44.9 ; Other pulmonary collapse J98.19 ; 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 ; Other secondary pulmonary hypertension I27.29 ; Chronic respiratory failure with hypoxia J96.11 ; direct care worker (current) use of inhaled steroids Z79.51 ; History of COVID-19 Z86.16 and Morbid (severe) obesity due to excess calories E66.01 Assessments Encounter Date Diagnosis (ICD Code) Assessment Notes Treatment Notes Treatment Clinical Notes Section Notes 08/06/2024 Critical illness myopathy (ICD-10 - G72.81) Ircy-bx-pqta encounter performed with the patient to document [...] able to generate an NIF (MIP) of -[id number]. This neuromuscular weakness is not secondary to [...] acute hypercapnic respiratory failure. This is a iemt-xn-thdp visit performed with the patient today to [...] (ICD-10 - J98.19) Dynamic airway collapse Tracheobronchomalacia Niyw-ik-jasm performed today regarding continued need for NIV. 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 [...] months given severity of her pulmonary disease. 05/01/2025 Chronic obstructive pulmonary disease (ICD-10 - [...] she keep up with her pulmonary toilet. [facility] Pulmonology practice will be permanently closing. Refilling all medications today. As it will be several months until I would be able to see her again elsewhere, prescribing prednisone and antibiotics in case she has a flare and is unable to reach anyone. 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 -Use of vest twice daily: Yes -Improvement of mobilization and clearance of secretions: Improved -Amplitude/frequency of oscillations tolerable: Yes -Continues to use nebulized saline: Yes -Continues to use PEP device: Yes -Recommendations: Continue PEP, saline nebs, NIV, and vest. 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 Discussed if she develops a rash again on the face to try Selsun Blue. 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 Compliance from 02/26/2025 - 03/27/2025 was reviewed. Doing awesome with NIV - despite hospitalization and rehab stint, she was still able to have her son bring in her NIV and she maintained excellent compliance at days (93%). Residual AHI 4.1. No issues with mask, pressures, etc. No complaints of rash today. 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 08/06/2024 Other pulmonary collapse (ICD-10 - J98.19) [...] treatment. It was recommended for referral to [facility] for tracheobronchoplasty, but patient wished to have conservative treatment for now. 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 Continue vest, PEP, and saline nebs. 05/01/2025 Chronic respiratory failure with hypoxia (ICD-10 - J96.11) Yseo-co-vrnm encounter performed with the patient to document [...] echo - RVSP 63mmHg. F/U with cardiology. 04/02/2025 Other secondary pulmonary hypertension (ICD-10 - I27.29) Echocardiogram January 2025 continues to show elevated RVSP; it is currently 63 mmHg. She is seeing cardiology and suspect it is group 3 etiology (pulmonary). Treatment generally is treating the underlying conditions, which are very difficult to manage. 01/29/2025 Chronic respiratory failure with hypoxia (ICD-10 - J96.11) Xdbv-jq-myux encounter performed with the patient to document [...] respiratory failure with hypoxia (ICD-10 - J96.11) Pimy-pk-paee encounter performed with the patient to document [...] respiratory failure with hypoxia (ICD-10 - J96.11) Oehh-vu-hlgi encounter performed with the patient to document [...] airflow to alveoli to facilitate air exchange. 08/06/2024 Allergic rhinitis (ICD-10 - J30.9) Patient continue saline rinses and Flonase. 09/03/2024 Chronic respiratory failure with hypoxia (ICD-10 - J96.11) Zvyi-kr-dril encounter performed with the patient to document [...] time on 3L/min. Continue O2 ATC. 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 04/02/2025 Chronic respiratory failure with hypoxia (ICD-10 - J96.11) Xixt-rp-baqt encounter performed with the patient to document [...] of requiring O2. -Recommendations: Continue O2 ATC. 05/01/2025 Allergic rhinitis (ICD-10 - J30.9) Continue Flonase and Singulair. 05/01/2025 Oral candidiasis (ICD-10 - B37.0) Refill of clotrimazole sent in just in case 04/02/2025 direct care worker (current) use of inhaled steroids (ICD-10 - [...] with multiple medical conditions, medications, and deconditioning. 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 05/01/2025 Morbid (severe) obesity due to excess calories (ICD-10 - E66.01) Patient's weight is inducing a restrictive pulmonary physiology. Weight loss indicated: Decrease calories, increase activity. 04/02/2025 Morbid (severe) obesity due to excess calories (ICD-10 - E66.01) Patient's weight is inducing a restrictive pulmonary physiology. Weight loss indicated: Decrease calories, increase activity. 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 08/06/2024 [facility] (current) use of inhaled steroids (ICD-10 - Z79.51) Patient was counseled to rinse & gargle with water after inhaled corticosteroid use. 08/06/2024 History of COVID-19 (ICD-10 - Z86.16) 04/04/2023: Severe associated hypoxic respiratory failure 09/03/2024 History of COVID-19 (ICD-10 - Z86.16) 04/04/2023: Severe associated hypoxic respiratory failure 05/01/2025 History of COVID-19 (ICD-10 - Z86.16) [...] index [BMI] 40.0-44.9, adult (ICD-10 - Z68.41) 08/06/2024 Other Patient has developed oral candidiasis [...] Blue. Any further treatment, follow-up with PCP. 05/01/2025 Other As above, suggested patient scrub her face twice daily with Selsun Blue. Any further treatment, follow-up with PCP. Plan Of Treatment No Information Insurance Providers Payer Name Payer Address Payer Phone Subscriber Number Group Number Insured Name Patient Relationship to Insured Coverage Start Date Coverage End Date [employer] [address] [place] [address] [id number] Diana Champion Self - patient is the insured 5 5 [employer] [address] [place], [place] [id number] Diana Champion Self - patient is the insured 5 MEDICAID [place] 2ND INS [address] [place], [place] [id number] Diana Champion Self - patient is the [...] Healthcare-associated pneumonia J18.9 Surgical History Surgery Date(Month/Year) Cardiac Catheterization spinal fusion tubal ligation Right Foot Surgery right knee replacement left hip replacement Bronchoscopy- 07/02/2024 Hospitalization History Reason Date(Month/Year) HCAP - [facility] 03/11/2025 COVID & Pseudomonas pneumonia-[facility] 2024 Asthma/COPD Exacerbation-[facility] 01/02/2025 COPD Exacerbation, pneumonia-[facility] COPD Exacerbation-[facility] 06/07/2024 COPD Exacerbation-TB 04/11/2024 Pneumonia-TB 02/03/2024 Mehht-32-[facility] 04/10/2023 Hospital Acquired Pneumonia-[facility] 08/08/20 24 Sepsis/Pneumonia-TB 11/25/2023
--- OUTSIDE RECORDS SUMMARY | 2025-07-05 15:17 | XMS_ITS | CCD ---
Author Organization [facility] Inform ion [facility] Care Team Providers Care Bar Turner Name Role Phone Steph Collier Attending Provider [...] e FAWANASTASIA, MESSER H Primary Care Unavailable OWYHEE, DR BRITTANY Elizondo Consulting Unavailable DARWIN, DR [...] H Consulting Unavailable Steph Collier Attending Provider Ariella Mathis DO Unavailable Tapan Zazueta MD Primary Care Provider [phone] Aida Reese NP Unavailable [phone] MD Allan Lacey Attending Provider KELI Reese Primary Care [facility] TAPAN ZAZUETA Primary Care Physician Allan Lacey MD Attending Provider Mary Ann BRANDT-Aida Pastrana Primary Care Provid er Allan Lacey Attending Unavailable Aida Reese Primary Care Unavaila Allan Fregoso Admitting Unavailable Allan Lacey Attending Unavailable Aida Reese Primary Care Unavaila Allan Fregoso Admitting Unavailable Reese SUPPLY CRIB ATTENDANT, Aida Unavailable OMBALLI, MOHAMED Referring Unavailable RADHA, GHULAM Referring Unavailable OMBALLI, MOHAMED Admitting Unavailable OMBALLI, MOHAMED Attending Unavailable OMBALLI, GUSTAVOAMED Referring Unavailable ELTAHAWY, EHAB Attending Unavailable ELTAHAWY, EHAB Attending Unavailable OMBALLI, GUSTAVOAMED Attending Unavailable SAMSABO Referring Unavailable OMBALLI, EMELIA Attending Unavailable OMBALLI, GUSTAVOAMED Attending Unavailable MAG BLOUNT Attending Unavailable AIDA REESE Referring Unavailtori e MAG BLOUNT Attending Unavailable MAG BLOUNT Attending Unavailable MAG BLOUNT Admitting Unavailable REESEAIDA AREVALO Attending Unavailabl e PETJESSICA PATTERSON Attending Unavailable RAMIN MAIER Attending Unavailable RAMIN MAIER Referring Unavailable RAMIN MAIER Referring Unavailable PETJESSICA PATTERSON Attending Unavailable REESEAIDA Attending Unavailabl e REESEAIDA Attending Unavailabl e REESEAIDA Attending Unavailabl e AICHHOLZ KAYLENE Attending Unavailable AICHHOLZ KAYLENE Attending Unavailable AICHHOLZ, KAYLENE Attending Unavailable AICHHOLZ, KAYLENE Attending Unavailable AICHHOLZ, KAYLENE Attending Unavailable REESEAIDA Attending Unavailabl e JAYNA OGODE Attending Unavailable REESEAIDA Referring Unavailabl e REESEAIDA Attending Unavailabl e Alicia DRAPER, Vandanarius Johnson Attending Unavailable Alicia DRAPER, Andrius Alex Attending Unavailable Alicia DRAPER, Andrius Johnson Attending Unavailable Amalia Stephens Attending Unavailable Amalia Stephens Attending Unavailable Unavailable Unavailable Unavailable Allergies Allergy Classification Reported Allergen(s) Allergy Type Date of Onset Reaction(s) Facility (20 sources) fentaNYL; Translations: [fentanyl] Drug Allergy 07-07-20 Hallucinations (finding) [facility] (1 source) linezolid; Translations: [LINEZOLID] Drug Allergy 03-17-20 [facility] Repository (20 sources) Vancomycin; Translations: [VANCOMYCIN] Drug Allergy 03-17-20 Unknown [facility] Repository (14 sources) DENIES METAL SENSITITIVITY Propensity to adverse reactions 03-14-20 Unknown, Unknown Reaction [facility] Medications Current Medications Medication Drug Class(es) Dates [...] 3 mL Start Date: 10/15/24 Status: Ordered Repeat number: 1 Start: 09-05-2024 Albuterol Sulf ate 2.5 mg [...] tablet (20 sources) gamma-Aminobutyric Acid-ergic Agonist Start: End: take 1 tablet by mouth in the [...] (10 mg) before bedtime. 90 tablet 2 04/28/2025 Active Start: 03-14-2024 End: 07-16-2024 take 1 tablet by mouth in the [...] 2 07/17/2024 Active take 1 tablet by bessie th every eight hours Baclofen 5 MG 1 tablet as needed Orally Three times a day Active 120 actuat budesonide 0.16 mg/actuat / formoterol fumarate 0.0048 mg/actuat / glycopyrrolate 0.009 mg/actuat metered dose inhaler (14 sources) Corticosteroid, beta2-Adrenergic Agonist Start: 02-24-2025 Breztri Aerosphere 160-9-4.8 MCG/ACT aerosol every 12 (twelve) hours 02/24/2025 Active 24 hr buPROPion hydrochloride 150 mg extended release oral tablet (11 sources) Aminoketone Start: 04-23-2025 End: 07-18-2025 take 1 tablet by mouth every twenty-four hours in the morning buPROPion XL (Wellbutrin XL) 150 MG 24 hr tablet Indications: Moderate episode of recurrent major depressive disorder (HCC) Take 1 tablet (150 mg) by mouth in the morning. Do not crush, chew, or split. 30 tablet 1 06/18/2025 07/18/2025 Active cholecalciferol 0.025 mg oral capsule (10 sources) Vitamin D Start: 01-25-2024 End: 07-23-2024 take 1 capsule by mouth once daily Cholecalciferol (Vitamin D3) 25 mcg (1,000 unit) capsule Active 25 MCG PO Daily March 13, 2024 11:00pm doxycycline hyclate 100 mg oral capsule (7 sources) Tetracycline-class Drug Start: 01-14-2025 End: 01-24-2025 take 1 capsule by mouth in the morning doxycycline (Vibramycin) 100 MG capsule Take 100 mg by mouth in the morning and 100 mg before bedtime. 01/14/2025 01/16/2025 Discontinued (Therapy completed) Start: 11-18-2024 End: 11-28-2024 take 1 capsule by mouth in the morning doxycycline (Vibramycin) 100 MG capsule Take 100 mg by mouth in the morning and 100 mg before bedtime. 11/18/2024 11/28/2024 Active Start: 06-10-2024 take 1 tablet by bessie th once daily doxycycline (Vibra-Tabs) 100 MG tablet Take 100 mg by mouth Daily 06/10/2024 Active Ensifentrine (Ohtuvayre) 3 MG/2.5ML suspension (14 sources) Start: 04-02-2025 Ensifentrine (Ohtuvayre) 3 MG/2.5ML suspension every 12 (twelve) hours 04/02/2025 Active ferrous sulfate 325 mg oral tablet (20 sources) Start: 10-15-2024 take 1 tablet by mouth once daily ferrous sulfate 325 mg Tab 325 mg = 1 tab(s), Oral, Daily Start Date: 10/15/24 Status: Ordered Repeat number: 1 Start: 03-14-2024 Ferrous Sulfat e 325 mg [...] propionate 0.05 mg/actuat metered dose nasal spray (7 sources) Corticosteroid Start: 05-01-2025 take 2 spray(s) nasal route once daily fluticasone (Flonase) 50 MCG/ACT nasal spray Administer 2 sprays into each nostril Daily 05/01/2025 Active take 2 spray(s) nasal route once daily Flonase Allergy Relief 50 MCG/ACT 2 spray in each nostril Nasally Once a day Active fluticasone furoate 0.1 MG/ACTUAT / umeclidinium 0.0625 MG/ACTUAT / vilanterol 0.025 MG/ACTUAT Dry Powder Inhaler (4 sources) Anticholinergic, Corticosteroid, beta2-Adrenergic Agonist Start: 10-15-2024 fluticasone/umeclidinium/david anterol 200 mcg-62.5 mcg-25 mcg/inh inhalation powder inh, Inhalation, Daily Start Date: 10/15/24 Status: Ordered Repeat number: 1 Start: 10-15-2024 fluticasone/um eclidinium/vilanterol 200 mcg-62.5 mcg-25 mcg/inh inhalation powder inh, Inhalation, Daily Start Date: 10/15/24 Status: Ordered Ehylpyjxtfh-Ietbnfpba-Klfibj (Trelegy Ellipta) 200-62.5-25 MCG/ACT aerosol powder (20 sources) End: 04-09-2025 take 1 puff(s) by mouth in the morning Qrsxrpunkrn-Xwwopfiak-Hnxxyd (Trelegy Ellipta) 200-62.5-25 MCG/ACT aerosol powder Take 1 puff by mouth in the morning. 04/09/2025 Discontinued (Ineffective) take 1 puff(s) by mo uth in the morning Esihxlsuprz-Xnmakxsts-Dmpatm (Trelegy El lipta) 200-62.5-25 MCG/ACT aerosol powder Take 1 puff by mouth in the morning. Active Adcaunjffcf-Jcmeuesnh-Rzvzxj er (7 sources) Start: 03-14-2024 Udvldggojwh-Smrbpwcic-Ssdlan er (Trelegy Ellipta) 200-62.5-25 mcg blister with device Active 1 INH INHALATION Daily March 13, 2024 11:00pm Start: 03-14-2024 Fluticasone-Um eclidin-Vilanter (Trelegy Ellipta) 200-62.5-25 mcg blister with device Active 1 INH INHALATION Daily March 14, 2024 12:00am Start: 12-08-2022 End: 03-14-2024 Mykhsivdfvx-Oqrhlmadj-Docyfg er (Trelegy Ellipta) 200-62.5-25 mcg blister with device Discontinued 1 INH INHALATION As Directed December 08, 2022 12:00am March 14, 2024 9:40am Start: 12-08-2022 End: 03-14-2024 Svbczzgrthg-Epvcdrdca-Gpcwht er (Trelegy Ellipta) 200-62.5-25 mcg blister with device Discontinued 1 INH INHALATION As Directed December 08, 2022 1:00am March 14, 2024 10:40am Start: 12-08-2022 Fluticasone-Um eclidin-Vilanter (Trelegy Ellipta) 200-62.5-25 mcg blister with device Active 1 INH INHALATION As Directed December 08, 2022 12:00am furosemide 20 mg oral tablet (20 sources) Loop Diuretic Start: 04-10-2024 End: 08-10-2025 take 1 tablet by mouth once daily furosemide (Lasix) 20 MG tablet Indications: Edema of both lower extremities Take 1 tablet (20 mg) by mouth Daily 90 tablet 1 05/12/2025 08/10/2025 Active take 1 tablet by bessie th [...] Oral, q12hr Start Date: 10/15/24 Status: Ordered Repeat number: 1 take 1 tablet by bessie th in [...] 1 drop(s) Start Date: 10/15/24 Status: Ordered Repeat number: 1 Start: 09-05-2024 take 1 drop(s) into the [...] day Active levoFLOXacin 750 mg oral tablet (4 sources) Quinolone Antimicrobial Start: 2024 End: 2024 take 1 tablet by mouth once daily levoFLOXacin (Levaquin) 750 MG tablet Indications: Pneumonia due to infectious organism, unspecified laterality, unspecified part of lung Take 1 tablet (750 mg) by mouth Daily for 7 days Discontinue doxycycline script 7 tablet 01/15/2025 01/22/2025 Active Start: 06-10-2024 take 1 tablet by bessie th once daily levoFLOXacin (Levaquin) 750 MG tablet Take 750 mg by mouth Daily 06/10/2024 Active magnesium oxide 400 mg oral tablet (20 sources) Start: 08-09-2022 End: 04-15-2024 magnesium oxide 400 mg Tab Start Date: 10/15/24 Status: Ordered Repeat number: 1 montelukast 10 mg oral tablet (20 sources) Leukotriene Receptor Antagonist Start: 03-14-2024 montelukast 10 mg Ta b Refills(s) 0 Start Date: 10/15/24 Status: Ordered Repeat number: 1 Multi For Her 50+ - (11 sources) Multi For Her 50 + - as directed Orally ONCE A DAY Active Multi For Her 50 + - as directed Orally Active Multi Vitamins oral tablet (4 sources) Start: 10-15-2024 take 1 tablet by mouth once daily Multi Vitamins oral tablet Oral, Daily, Refill(s) 0 Start Date: 10/15/24 Status: Ordered Repeat number: 1 Start: 10-15-2024 Multi Vitamins oral tablet Oral, Daily, Refill(s) 0 Start Date: 10/15/24 Status: Ordered Multiple Vitamin (multivitamin) tablet (20 sources) take 1 tablet by mouth in the morning Multiple Vitamin (multivitamin) tablet Take 1 tablet by mouth in the morning. Active mupirocin 0.02 mg/mg topical ointment (5 sources) RNA Synthetase Inhibitor Antibacterial Start: End: mupirocin (Bactroban) 2 % ointment Indications: Skin pustule Apply topically 3 (three) times a day as needed (skin pustules) for up to 10 days 22 g 06/05/2025 06/15/2025 Active nystatin 701017 unt/ml topical cream (7 sources) Polyene Antifungal Start: End: nystatin (Mycostatin) cream Indications: Candidiasis of breast Apply topically every 12 (twelve) hours if needed (yeast dermatitis) for up to 14 days 60 g 1 05/19/2025 06/02/2025 Active Start: 02-17-2025 End: 03-03-2025 nystatin (Mycostatin) cream Indications: Candidiasis Apply topically in the morning and before bedtime. Do all this for 14 days. Apply to affected area. 60 g 1 02/17/2025 03/03/2025 Active omeprazole 20 mg delayed release oral capsule (20 sources) Proton Pump Inhibitor Start: 02-26-2025 End: 05-27-2025 take 1 capsule by mouth once omeprazole (PriLOSEC) [address] capsule Indications: Gastroesophageal reflux disease without esophagitis Take 1 capsule (20 mg) by mouth every 12 (twelve) hours 180 capsule 1 02/26/2025 Active Start: 10-15-2024 End: 02-26-2025 omeprazole 20 mg Cap-DR 20 m g = 1 cap(s) Start Date: 10/15/24 Status: Ordered Repeat number: 1 Start: 09-03-2024 End: 12-02-2024 take 1 capsule [...] (Reorder) Start: 03-14-2024 take 1 capsule by [facility] twice daily Omeprazole 20 mg capsule,delayed release(DR/EC) Active 20 MG PO Twice daily March 13, 2024 11:00pm Start: 07-07-2017 End: 03-14-2024 take 1 tablet by mouth once daily Omeprazole 20 mg Tablet,Delayed Release (Dr/Ec) Discontinued 20 MG PO Daily July 06, 2017 11:00pm March 14, 2024 9:41am take 1 capsule by [facility] every [...] Orally Once a day Active PARoxetine hydrochloride 40 mg oral tablet (20 sources) Serotonin Reuptake Inhibitor Start: End: take 1 tablet by mouth in the morning PARoxetine (Paxil) 40 MG tablet Indications: Moderate episode of recurrent major depressive disorder (HCC) Take 1 tablet (40 mg) by mouth in the morning. 90 tablet 1 05/19/2025 08/17/2025 Active Start: 03-14-2024 End: 01-16-2025 paroxetine 30 mg Tab 30 mg = 1 tab(s) Start Date: 10/15/24 Status: Ordered Repeat number: 1 Start: 07-07-2017 End: 03-14-2024 take 1 tablet [...] tab(s), Oral Start Date: 10/15/24 Status: Ordered Repeat number: 1 Start: 03-14-2024 End: 11-15-2025 pramipexole (Mirapex) 0.25 M G tablet Indications: RLS (restless legs syndrome) Take 1 tablet (0.25 mg) by mouth as needed at bedtime (Restless leg) 90 tablet 1 05/19/2025 11/15/2025 Active take 1 tablet by bessie th every twenty-four hours Pramipexole Dihydrochloride 0.25 MG 1 tablet Orally Once a day Active predniSONE 10 mg oral tablet (20 sources) Start: 01-14-2025 End: 01-25-2025 take 1 tablet by mouth once daily predniSONE (Deltasone) 10 MG tablet Take 10 mg by mouth Daily Follow instructions on label 01/14/2025 01/25/2025 Active Start: 11-19-2024 End: 12-20-2024 predniSONE (Deltasone) 10 [...] oral capsule (20 sources) Start: 03-14-2024 End: 05-29-2025 take 1 capsule by mouth in the morning pregabalin (Lyrica) 75 MG capsule Indications: Restless leg syndrome Take 1 capsule (75 mg) by mouth in the morning and 1 capsule (75 mg) before bedtime. 60 capsule 3 04/29/2025 Active Sodium Chloride (20 sources) Start: 10-15-2024 sodium chlorid e Start Date: 10/15/24 Status: Ordered Repeat number: 1 Start: 10-15-2024 sodium chlorid e Start Date: [...] tablet (20 sources) Cholinergic Muscarinic Antagonist Start: 01-13-2025 End: 04-13-2025 take 1 tablet by mouth once daily solifenacin (VESIcare) 10 MG tablet Indications: Urge incontinence Take 1 tablet (10 mg) by mouth Daily 90 tablet 01/13/2025 04/09/2025 Discontinued (Ineffective) Start: 10-14-2024 take 1 tablet by bessie th once [...] tab(s), Oral Start Date: 10/15/24 Status: Ordered Repeat number: 1 Start: 01-23-2024 End: 04-09-2025 take 1 tablet by mouth every twelve hours traMADol (Ultram) 50 MG tablet Take 50 mg by mouth every 12 (twelve) hours 01/23/2024 04/09/2025 Discontinued (Therapy completed) traZODone hydrochloride 100 mg oral tablet (20 sources) Serotonin Reuptake Inhibitor Start: 10-15-2024 End: 08-17-2025 take 1 tablet by mouth at bedtime traZODone (Desyrel) 100 MG tablet Indications: Moderate episode of recurrent major depressive disorder (HCC) Take 1 tablet (100 mg) by mouth at bedtime TAKE 1 TABLET BY MOUTH AT BEDTIME 90 tablet 1 05/19/2025 08/17/2025 Active Start: 07-17-2024 take 1 tablet by [...] 1 puff Inhalation Once a day Active trospium chloride 20 mg oral tablet (16 sources) Cholinergic Muscarinic Antagonist Start: End: take 1 tablet by mouth twice daily trospium 20 mg oral tablet 20 mg = 1 tab(s), Oral, BID, # 60 tab(s), Refills(s) 11, Pharmacy: [id number], 163, cm, 10/15/24 14:36:00 EST, Height/Length Dosing, 107, kg, 10/15/24 14:36:00 EST, Weight Dosing Start Date: 11/06/24 Stop Date: 10/21/25 Status: Ordered Quantity: 60.0 Unit: tab(s) Repeat number: 12 take 1 capsule by mouth once ok ly trospium (Sanctura XR) 60 MG 24 hour capsule Take 60 mg by mouth Daily Active valACYclovir 1000 mg oral tablet (2 sources) Herpesvirus Nucleoside Analog DNA Polymerase Inhibitor, Herpes Simplex Virus Nucleoside Analog DNA Polymerase Inhibitor, Herpes Zoster Virus Nucleoside Analog DNA Polymerase Inhibitor Start: 11-12-2024 End: 11-19-2024 take 1 tablet by mouth in the [...] 1 puff(s) by inhalation twice daily Ipratropium [place] (Atrovent Hfa) 17 mcg/actuation Hfa Aerosol Inhaler [...] Translations: [Depression] Onset: 3 10-04-2023 Chronic Mycoses (20 sources) Candidiasis of vagina; Translations: [Vaginal guero] Onset: 5 09-10-2024 Episodic Nutritional deficiencies (20 sources) Vitamin D deficiency; Translations: [Vitamin D deficiency, unspecified] Onset: 3 03-14-2024 Chronic Osteoarthritis (20 sources) Arthritis of left hip; Translations: [Unilateral primary osteoarthritis, left hip] Onset: 8 Resolved: 5 10-04-2023 Chronic Other aftercare (11 sources) Patient [...] hip joint] Chronic Other connective tissue disease (2 sources) [...] legs syndrome] Onset: 3 10-04-2023 Chronic Other lower respiratory disease (2 sources) Other forms of dyspnea; Translations: [Other forms of dyspnea] Onset: 2 Episodic Other nervous system disorders (20 sources) Chronic [...] nutritional; endocrine; and metabolic disorders (20 sources) Obesity caused by energy imbalance; Translations: [...] failure with hypoxia] Onset: 4 12-28-2023 Chronic Rheumatoid arthritis and related disease (20 sources) Rheumatoid arthritis; Translations: [Rheumatoid arthritis, unspecified] Onset: 5 02-17-2025 Chronic Skin and subcutaneous tissue infections (8 sources) Pustule ; Translations: [Local infection of the skin and subcutaneous tissue, unspecified] Onset: 5 05-19-2025 Episodic Spondylosis; intervertebral disc disorders; other back problems (20 sources) Sacroiliitis, not elsewhere classified; Translations: [Herniation of nucleus pulposus of lumbar intervertebral disc] Onset: 8 Resolved: 5 12-05-2023 Chronic Unclassified (4 sources) CONTACT W/AND (SUSP) EXPOS COVID-19; Translations: [CONTACT W/AND (SUSP) EXPOS COVID-19] Onset: 2 Unclassified (4 sources) CHRN KIDNEY DISEASE STG 3 UNSP; Translations: [CHRN KIDNEY DISEASE STG 3 UNSP] Onset: 2 Unclassified (3 sources) ACUTE COUGH; Translations: [ACUTE COUGH] Onset: 3 Unclassified (20 sources) Patient on antidepressant monitoring plan Onset: 4 07-17-2024 Unclassified (4 sources) Arthropathy of right knee joint 10-15-2024 Unclassified (4 sources) Displacement of lumbar intervertebral disc 10-15-2024 Unclassified (4 sources) Malignant colorectal neoplasm 10-15-2024 Viral infection (1 source) COVID-19; Translations: [COVID-19] [...] sources) Malaise; Translations: [Other malaise] Onset: 12-05-2023 Resolved: 01-16-2025 12-05-2023 Episodic Mood disorders (20 sources) Mood disorders Onset: 11-02-2023 11-02-2023 Neoplasms of unspecified nature or uncertain behavior (20 sources) 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; Translations: [Neoplasm of uncertain behavior of other specified sites] Onset: 10-07-2024 10-07-2024 Episodic Other aftercare (20 sources) Post-discharge follow-up; Translations: [Encounter for follow-up examination after completed treatment for conditions other than malignant neoplasm] Onset: 12-05-2023 Resolved: 01-16-2025 12-05-2023 Episodic Other bone disease and musculoskeletal deformities (1 source) Other specified disorders of bone density and structure, right thigh; Translations: [OTH D/O BONE DEN STRUCT RT THIGH] Onset: 12-19-2022 Episodic Other connective tissue disease (20 sources) History of total knee arthroplasty; Translations: [Presence of right artificial knee joint] Onset: 12-05-2023 Resolved: 01-16-2025 12-05-2023 Chronic Other infections; including parasitic (20 sources) Personal history of other infectious and parasitic diseases; Translations: [History of COVID-19] Onset: 05-08-2023 12-05-2023 Episodic Other injuries and conditions due to external causes (20 sources) At moderate risk for fall; Translations: [History of falling] Onset: 10-04-2023 Resolved: 02-17-2025 10-04-2023 Episodic Other lower respiratory disease (4 sources) Respiratory disorder, unspecified; Translations: [RESPIRATORY DISORDER UNSPECIFIED] Onset: 06-08-2022 Episodic Other lower respiratory disease (20 sources) Pneumonitis; Translations: [Other disorders of lung] Onset: 12-05-2023 12-05-2023 Episodic Other lower respiratory disease (2 sources) Solitary pulmonary nodule; Translations: [Solitary pulmonary nodule] Onset: 06-21-2024 Episodic Other non-traumatic joint disorders (18 sources) Pain in right hip joint; Translations: [Pain in right hip] Onset: 10-04-2023 10-04-2023 Episodic Other non-traumatic joint disorders (20 sources) Hip pain; Translations: [Pain in left hip] Onset: 10-04-2023 Resolved: 04-09-2025 10-04-2023 Episodic Other nutritional; endocrine; and metabolic [...] specified diseases of upper respiratory tract] Onset: 07-02-2024 Episodic Other upper respiratory infections (5 sources) [...] [Asymptomatic menopausal state] Onset: 10-04-2023 10-04-2023 Episodic Residual codes; unclassified (20 sources) Viral syndrome; Translations: [Other general symptoms and signs] Onset: 01-02-2025 Resolved: 01-16-2025 01-02-2025 Episodic Residual codes; unclassified (20 sources) Bilateral lower limb edema; Translations: [Localized edema] Onset: 02-17-2025 02-17-2025 Episodic Screening and history of mental health and substance abuse codes (20 sources) Depression screening positive; Translations: [Encounter for screening for depression] Onset: 10-04-2023 Resolved: 01-16-2025 10-04-2023 Episodic Spondylosis; intervertebral disc disorders; other back problems (20 sources) Spinal stenosis of lumbar region; Translations: [Spinal stenosis, lumbar region without neurogenic claudication] Onset: 03-24-2023 Resolved: 01-16-2025 Episodic Unclassified (1 source) CONTACT W/AND (SUSP) EXPOS COVID-19; Translations: [CONTACT W/AND (SUSP) EXPOS COVID-19] Onset: 04-04-2023 Unclassified (1 source) ACUTE COUGH; Translations: [ACUTE COUGH] Onset: 02-22-2023 Unclassified (1 source) CHRN KIDNEY DISEASE STG 3 UNSP; Translations: [CHRN KIDNEY DISEASE STG 3 UNSP] Onset: 08-19-2022 Viral infection (20 sources) COVID-19; Translations: [Other specified viral infection] Onset: 11-12-2024 03-14-2024 Episodic Results Test Name Value Interpretation Reference Range Facility XR Hip - right [address] [place] [address] XRay Report Signed Patient: DIANA CHAMPION MR#: [id number] : 1955 Acct:[id number] Age/Sex: 69 / F ADM Date: 04/30/25 Loc: RAD Attending Dr: Jose Saucedo NP Ordering Physician: Jose Saucedo NP Date of Service: 04/30/25 Procedure(s): XR hip RT min 2V Accession Number(s): [id number] cc: Kaylene López NP; Jose Saucedo NP [address] [address] Patient Name: DIANA CHAMPION MRN: [id number] date: 1955 Sex: F Assigned Patient Location: RAD Current Patient Location: RAD Accession/Order Number: [id number] Exam Date: 04/30/2025 13:45 Report Date: 04/30/2025 [...] Jr., D.O. 04/30/2025 1:46 PM Dictation Location: [place] [address] Electronically authenticated by: [id number] Y Date: 04/30/2025 13:46 Dictated By: Marcos Medina M.D. Signed By: 04/30/25 1349 DD/ 1346 TD/TT: Vp Of Marketing: [facility] Radiologhernandez altman MD - 04/30/2025 [place] [address] XRay Report Signed Patient: DIANA CHAMPION MR#: [id number] : 1955 Acct:[id number] Age/Sex: 69 / F ADM Date: 04/30/25 Loc: [facility] Attending Dr: Jose Saucedo NP Ordering Physician: Jose Saucedo NP Date of Service: 04/30/25 Procedure(s): XR hip RT min 2V Accession Number(s): [id number] cc: Kaylene López NP; Jose Saucedo NP The [address] [address] Patient Name: DIANA CHAMPION MRN: [id number] date: 1955 Sex: F Assigned Patient Location: RAD Current Patient Location: RAD Accession/Order Number: [id number] Exam Date: 04/30/2025 13:45 Report Date: 04/30/2025 [...] Jr., D.O. 04/30/2025 1:46 PM Dictation Location: [place] [address] Electronically authenticated by: [id number] Y Date: 04/30/2025 13:46 Dictated By: Marcos Medina M.D. Signed By: 04/30/25 1349 DD/ 134 TD/TT: Vp Of Marketing: [facility] Radiology Study observation (narrative) [facility] XR Hip - right 3 ViewsOrdere d By: Radiologist Radiology on 04-30-2025 [facility] Work Phone: Ambulatory Visit Summaryon 0 03-24-2025 Ambulatory Visit Summary Ambulatory Visit Summary DIANA CHAMPION :1955 Visit Date:03/24/2025 Ambulatory Visit Instructions Your Diagnosis Mixed incontinence Your Care Team Attending Physician - MAG BLOUNT PA-C Primary Care Physician - TAPAN ZAZUETA MD This Is Your Medications List albuterol (albuterol [...] pregabalin (pregabalin 75 mg Cap) sodium chloride tramadol (traMADOL 50 mg Tab) trazodone (traZODONE 100 mg Tab) trospium (trospium 20 mg oral tablet) Procedures Performed CE - Cataract extraction, Colonoscopy, Hip replacement, Knee replacement, TL - Tubal ligation. Discharge Vitals Temperature (Temporal Artery) 36.7 ???C Respiratory Rate 16 Blood Pressure 128/76 Height 163 cm Height 64 in Weight 104.6 kg Weight 230.603 lb BMI 39.37 What to do next Scheduled Follow-Up Appointments Monday 9:40 AM EDT With: MAG BLOUNT PA-C Where: [facility] [address] [place] [address]- Medications What How Much When Instructions Unchanged [...] Cap) 1 Capsules Unchanged sodium chloride Unchanged tramadol (traMADOL 50 mg Tab) 1 Tablets By Mouth Unchanged trazodone (traZODONE 100 mg Tab) 1 Tablets Unchanged trospium (trospium 20 mg oral tablet) 1 Tablets By Mouth 2 times a day Allergies fentaNYL (Hallucinations) Problems Ongoing - Any [...] for choosing us for your care. Normal [facility] Urology Office/Clinic Noteon 03-24-2025 Urology Office/Clinic Note Urology Office/Clinic Note Chief Complaint 5 month follow up HPI Staff 69yr old female pt here for 5 mo f/u med change. Previous Dx: mixed incontinence Urine sample was contaminated w fecal matter today so it was not run. Pt denies UTI sx. denies dysuria, denies hematuria, denies abdominal/flank pain Incontinence without sensory awareness, urge incontinence are main concerns BBSQ: 27 Review of Systems PHQ Score Initial Depression Screen Score: 2 SCORE no fever, chills, malaise, myalgia. no abdominal pain, nausea, vomiting. Physical Exam Vitals & Measurements T: 36.7 ???C(Temporal Artery) RR: 16 BP: 128/76 HT: 163 cm HT: 64 in WT: 104.6 kg WT: 230.603 lb BMI: 39.37 General: nontoxic, NAD Abdomen: nondistended Neurologic: Grossly normal Skin: No rashes or suspicious lesions Assessment/Plan CHF - [facility] [place] CKD - Joana COPD/Pulm - Samsa/Omballi. Required hospitalization in Aug. Colorectal CA 2003 tx'd w Chemo/rad. No recurrence. Follows w [facility]. Denies issues w UTIs. No hx stones. Never has gross hematuria. 1. Mixed incontinence (N39.46: Mixed incontinence) 10/15/24: Prev Uro records PRW - Cysto showed radiation changes in bladder. Uros showed max capacity 238ml, good compliance, low contraction but not true hypotonic (low nl). Has been on Vesicare since that time. Increased to 10mg at some point. Pt states it stopped working about 3 yrs ago. No longer can just wear pads. Now has to wear pads inside Briefs. This is very upsetting to her. Would like to get back to just pads. Has UUI, DONNA, and incontinence w/o awareness. UUI is most often. BBSQ 23. +FI but rare. No DM. On Lasix. Denies significant bladder irritant intake. TODAY: Pt called in Oct and advised that insurance will cover Oxybutynin, Sanctura, and Detrol. I sent Sanctura but she never picked it up. Not sure why. Still taking Vesicare 10 mg. Not satisfied w control. Pt does wish to try a different med, just got confused on the plan. Reiterated it today to both pt and her family member. Risks/benefits/side effects discussed. Spoke to pharmacy myself - cancelled the Vesicare. Made sure they will only dispense the Trospium. They will try for XR but if insurance won't cover they'll dispense the IR BID. Pt currently rehabbing at [facility] d/t double pneumonia. Has been there x1 week, plan is to hopefully return home within the next week or so. F/u 3 mos to assess efficacy. Ordered: Body Mass Index (BMI) documented 3008F Current tobacco non-user 1036F Depression Screening Negative 3352F E&M of Est. Patient Moderate 30-39 Min 53975 Medication list documented in medical record 1159F Most recent diastolic blood pressure <80 mm Hg 3078F Patient screen for fall risk: no falls in last year or 1 fall with no injury in last year 1101F Review of all meds by a prescribing practitioner or clinical pharmacist documented in EHR 1160F Systolic BP <130 mm Hg (Most Recent) 3074F Follow-up No qualifying data available Patient Education Overactive Bladder, Adult Problem List/Past [...] Tab, 325 mg= 1 tab(s), Oral, Daily fluticasone/umeclidinium /vilanterol 200 mcg-62.5 mcg-25 mcg/inh inhalation powder, Inhalation, [...] 100 mg Tab, 100 mg= 1 tab(s) trospium 20 mg oral tablet, 20 mg= 1 tab(s), Oral, BID, 11 refills, Not taking Xalatan 0.005% Soln-Opth, 1 drop(s) Allergies fentaNYL (Hallucinations) Social History Alcohol Never., 10/15/2024 Substance Abuse (more content not included)... Normal [facility] Comment on above: Result Comment: Elec tronically Signed By: JOSE ALEJANDRO MICHAUD, MAG Hester\.victorina\Date and Time Signed: 03/24/25 10:44 EDT MG Breast - bilateral Screen ingon 03-03-2025 [place] [address] Mammography Report Signed Patient: DIANA CHAMPION MR#: [id number] : 1955 Acct:[id number] Age/Sex: 69 / F ADM Date: 03/03/25 Loc: MAMMO Attending Dr: Kaylene López NP Ordering Physician: Kaylene López NP Results: Date of Service: 03/03/25 Follow Up: Procedure(s): MM screening mammo BI Accession Number(s): [id number] cc: Kaylene López NP Patient Name: DIANA CHAMPION MR#: [id number] : 1955 Exam Date: 03/03/2025 Ordering Doctor: [...] radiation, chemotherapy Family Cancers None LOCATION: [facility] BREAST COMPOSITION: The breasts are almost entirely [...] M.D. Signed By: 03/03/251642 DD/ 41 TD/TT: Vp Of Marketing: [facility] RadiologyAdeeloghernandez altman MD - 03/03/2025 [place] [address] Mammography Report Signed Patient: DIANA CHAMPION MR#: [id number] : 1955 Acct:[id number] Age/Sex: 69 / F ADM Date: 03/03/25 Loc: MAMMO Attending Dr: Kaylene López NP Ordering Physician: Kaylene López NP Results: Date of Service: 03/03/25 Follow Up: Procedure(s): MM screening mammo BI Accession Number(s): [id number] cc: Kaylene López NP Patient Name: DIANA CHAMPION MR#: [id number] : 1955 Exam Date: 03/03/2025 Ordering Doctor: [...] radiation, chemotherapy Family Cancers None LOCATION: [facility] BREAST COMPOSITION: The breasts are almost entirely [...] M.D. Signed By: 03/03/251642 DD/ 41 TD/TT: Vp Of Marketing: [facility] Radiology Study observation (narrative) [facility] MG Breast - bilateral Screen ingOrdered By: Radiologist Radiology on 03-03-2025 [facility] Work Phone: Office Visiton 01-23-2025 Follow-up visit [id number] Nell Champion 1955 F Date Provider Department Center 01/23/2025 271-[id number], HETAL CARD [facility] Family History Problem Relation Age of Onset Heart failure Mother Heart disease Father Family Status - Relation Status Age at Mother Father Level of Service:02693 UT OFFICE/OUTPATIENT ESTABLISHED LOW MDM 20 MIN Normal [facility] Laboratory - Microbiology an d Antimicrobial susceptibilityon 01-02-2025 SARS-CoV-2 (COVID-19) RNA KAYLEE+probe Ql (Unsp spec) Negative [facility] No Panel Informationon 01-[address] [facility] FLU B Negative [facility] Interpretation and review of laboratory results Normal [facility] XR Hip - right 3 [facility] Result: AP and Lateral right hip No acute fracture Mild SI joint arthritic changes Pt has severe arthritis to right hip joint with subchondral cyst and sclerosis to femoral head and acetabulum. Stable hardware left hip on AP view Impression: Severe right hip arthritis. [facility] Radiology Study observation (narrative) [facility] XR Knee - right 1 or [...] dislocation. Impression: Unremarkable right total knee arthroplasty [facility] Radiology Study observation (narrative) [facility] No Panel Informationon 12-13 Complexity: simple Destruction method: cryotherapy Informed consent: discussed and consent obtained Informed consent comment: The risks of the procedure were discussed, including, but not limited to risks of scarring, darker or label remover pigmentary changes, recurrence, infection, and incomplete removal [...] or tenderness. Additional details: Previous accession number: [id number] [facility] No Panel InformationOrdered By: Pat Mcfarland on 12-13-2024 [facility] Work Phone: Abstracton 10-24-2024 Abstract [id number] Nell Champion 1955 F Date Provider Department Center 10/24/2024 EMELIA MORALES ONC DCC Family History Problem Relation Age of Onset Heart failure Mother Heart disease Father Family Status - Relation Status Age at Mother Father Normal [facility] C Urineon 10-18-2024 Bacteria identified Cx Nom (U) Microbiology PROCEDURE: Urine Culture [R1] SOURCE: U Random BODY SITE: COLLECTED DATE/TIME: 10/15/2024 15:40 EST RECEIVED DATE/TIME: 10/16/2024 17:42 EST START DATE/TIME: 10/16/2024 17:42 EST FREE TEXT SOURCE: MAG BLOUNT PA-C, PA-C, JENNIFER E FINAL REPORTS Final Report [] Verified Date/Time: [...] Locations R1: [facility] performed at: [facility], [address] [place] [address], [address]- , [place], Normal [facility] Comment on above: Performed By: #### 2 [id number] #### [facility] Laboratory [address] [place] [id number] Ambulatory Visit Summaryon 1 12-16-2023 Ambulatory Visit Summary Ambulatory Visit Summary DIANA CHAMPION :1955 Visit Date:10/15/2024 Ambulatory Visit Instructions Your Diagnosis Urge incontinence Your Care Team Attending Physician - MAG BLOUNT PA-C Primary Care Physician - CARLITA DRAPER, TAPAN Referring Physician - MS. AIDA REESE This Is Your Medications List albuterol (albuterol [...] MAG BLOUNT PA-C Where: [facility] [address] [place] [id number]- Medications What How Much When Instructions Unchanged [...] you for choosing us for your care. Latanya [facility] No Panel Informationon 10-11 Type [...] taken Amount of lidocaine used: 0.5 cc [facility] 36on 09-20-2024 36 Faxed to [facility]. Ticker put in for Nov 2024 for patient to be scheduled with Dr. Church. [facility] 36on 09-12-2024 36 Patient called requesting clearance prior to cataract surgery. You saw her in May, and she had an echo shortly after (05/28/24 in social media assistant). Please advise. Thanks. [facility] EPITHELIAL CELLSon 4 Epithelial cells LM Ql (Urine sed) Epithelial Cells Few [facility] No Panel Informationon 08-13 [facility] RESULT 1on 08-13-2024 RESULT 1 Result 1 Moderate budding yeast present. [facility] RESULT 2on 08-13-2024 RESULT 2 Result 2 Few gram positive cocci [facility] RESULT 3on 08-13-2024 RESULT 3 Result 3 SUPPLY CRIB ATTENDANT [facility] RESULT 4on 08-13-2024 RESULT 4 Result 4 SUPPLY CRIB ATTENDANT [facility] WHITE BLOOD CELLSon 08-13-20 24 WHITE BLOOD CELLS White Blood Cells [facility] WHITE BLOOD CELLS Few [facility] ALL CBC WITH AUTO DIFFon BASOPHILS ABSOLUTE AUTO 0.1 [facility] Basophils/100 WBC (Bld) 0.5 % 0.2 - 2.0 % [facility] Eosinophils/100 WBC (Bld) 1.5 % 0.9 - 7.0 % [facility] Erythrocyte distribution width (RBC) [Ratio] 13.0 % 11.0 - 15.0 % [facility] Hematocrit (Bld) [Volume fraction] 39.0 % 36.0 - 48.0 % [facility] Hemoglobin (Bld) [Mass/Vol] 12.2 g/dL 12.0 - 16.0 g/dL [facility] IMMATURE GRANULOCYTES ABS AUTO 0.[address] [facility] Immature granulocytes/100 WBC (Bld) 2.4 % High 0.0 - 0.5 % [facility] Interpretation and review of laboratory results Abnormal [facility] LYMPHOCYTES ABSOLUTE AUTO 1.6 [facility] Lymphocytes/100 WBC (Bld) 17.2 % Low 20.5 - 60.0 % [facility] MCH (RBC) [Entitic mass] 29.7 pg 26.7 - 34.[address] [facility] MCHC (RBC) [Mass/Vol] 31.3 g/dL 29.9 - 35.2 g/dL [facility] MCV (RBC) [Entitic vol] 94.9 fL 81.0 - 99.[address] [facility] MONOCYTES ABSOLUTE AUTO 0.8 [facility] Monocytes/100 WBC (Bld) 8.3 % 1.7 - 12.0 % [facility] NEUTROPHILS ABSOLUTE AUTO 6.4 [facility] Neutrophils/100 WBC (Bld) 70.1 % 43.0 - 75.0 % [facility] Platelet mean volume (Bld) [Entitic vol] 8.8 fL Low 9.5 - 13.[address] [facility] TB EO # 0.1 [facility] TB PLT 266 [facility] TB RBC 4.[address] [facility] TB WBC 9.1 [facility] Telemedicineon 07-11-2024 Telemedicine [id number] Nell Champion 1955 F Date Provider Department Center 07/11/2024 EMELIA MORALES DCC ONC DCC Family History Problem Relation Age of Onset Heart failure Mother Heart disease Father Family Status - Relation Status Age at Mother Father Level of Service:37314 UT PHYS/QHP TELEPHONE EVALUATION 21-30 MIN () Reason for Visit and Comments: Telehealth Phone Visit [112] - Tracheobronchomalacia follow up per Dr Canseco. [facility] HPon 07-02-2024 H&P reviewed. The patient was [...] deficit PSYCH: appropriate mood, affect, and judgement. [facility] NURSNOTEon 07-02-2024 NURSNOTE Follow up at [facility] with Matthew Vargas May resume a Regular Diet and home medications. Normal [facility] NURSNOTE Bronchoscopy Finding s: Tracheobronchomalacia [facility] Telephoneon 06-27-2024 Telephone [id number] Nell Champion 1955 F Date Provider Department Center 06/27/2024 910-SOURAV ESCOBAR DCC ONC DCC Family History Problem Relation Age of Onset Heart failure Mother Heart disease Father Family Status - Relation Status Age at Mother Father [facility] Prep for Procedureon 024 Prep for Procedure [id number] Nell Champion 1955 F Date Provider Department Center 06/26/2024 383-EMELIA YOO [facility] PREOP [place] Medical Family History Problem Relation Age of Onset Heart failure Mother Heart disease Father Family Status - Relation Status Age at Mother Father [facility] HPon 06-25-2024 HP ---- -------- [...] Age: 68 y.o. : 1955 Account No.: [id number] Referring physician: Dr. Bo Mcclain Chief complaint: Recurreny pneumonia HPI Diana Champion is a 68 y.o. female with PMHx of reportedly COPD, chronic hypoxic respiratory failure on 2L home O2 who is presenting to clinic as a new patient after being referred by Dr. Bo Baker of [facility]. Patient has been admitted [...] years. 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 Yes Historical Provider, rzbxsqfqdld-hvwuuhkta-lr lanter 100-62.5-25 mcg blister with device Yes Historical Provider, gabapentin (Neurontin) 300 mg capsule Take 300 mg by mouth in the morning and at bedtime. 03/13/23 Yes Historical Provider, MD guaiFENesin (Mucinex) 600 mg 12 hr tablet [...] ER ta (more content not included)... Normal [facility] Telemedicineon 06-25-2024 Telemedicine [id number] Nell Champion 1955 Date Provider Department Center 06/25/2024 Nicholas-EMELIA YOO [facility] ONC DCC Family History Problem Relation Age of Onset Heart failure Mother Heart disease Father Family Status - Relation Status Age at Mother Father Level of Service:85972 UT PHYS/QHP TELEPHONE EVALUATION 21-30 MIN () Reason for Visit and Comments: New Patient [632] - SUPPLY CRIB ATTENDANT REFERRED BY BO 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 CT DONE 04-11-24 AND 06-07-24 AT [facility]. RECORDS SCANNED INTO MEDIA. FILMS REQUESTED- requested 3 times and [employer] IS DOWN. Could not get films. Normal [facility] Office Visiton 05-13-2024 Follow-up visit [id number] Nell Champion 1955 F Date Provider Department Center 05/13/2024 Siddharth-HETAL CHURCH [facility] Family History Problem Relation Age of Onset Heart failure Mother Heart disease Father Family Status - Relation Status Age at Mother Father Level of Service:25078 UT OFFICE/OUTPATIENT ESTABLISHED MOD MDM 30 MIN [facility] Erythrocyte distribution wid th Auto (RBC) [Ratio]on 03-06-2024 Erythrocyte distribution width (RBC) [Ratio] 13.2 % 11.0-15.0 [facility] Estimated glomerular filtrat ion rate (GFR) non- Americanon 03-06-2024 GFR/1.73 sq M.predicted among non-blacks MDRD (S/P/Bld) [Vol rate/Area] 57 mL/min/{1.73_m2} >=60 [facility] Hematocrit Auto (Bld) [Volum e fraction]on 03-06-2024 Hematocrit (Bld) [Volume fraction] 38.7 % 36.0-48.0 [facility] Hemoglobin [Mass/volume] in Bloodon 03-06-2024 Hemoglobin (Bld) [Mass/Vol] 12.2 g/dL 12.0-16.0 [facility] Laboratory - Chemistry and C hemistry - challengeon 03-06-2024 Albumin [Mass/Vol] 3.0 g/dL 3.4-5.0 [facility] Calcium [Mass/Vol] 8.8 mg/dL 8.5-10.1 [facility] Chloride [Moles/Vol] 104 mmol/L 98-107 [facility] CO2 [Moles/Vol] 32.2 mmol/L 21.0-32.0 [facility] Creatinine [Mass/Vol] 0.97 mg/dL 0.55-1.[address] [facility] GFR/1.73 sq M.predicted MDRD (S/P/Bld) [Vol rate/Area] mL/min/{1.73_m2} >=60 [facility] Glucose [Mass/Vol] 67 mg/dL 74-106 [facility] Magnesium [Mass/Vol] 1.9 mg/dL 1.8-2.4 [facility] Potassium [Moles/Vol] 3.4 mmol/L 3.5-5.[address] [facility] Sodium [Moles/Vol] 143 mmol/L 136-145 [facility] Urate [Mass/Vol] 5.0 mg/dL 2.6-6.0 [facility] Urea nitrogen [Mass/Vol] 16.0 mg/dL 7.0-18.0 [facility] Urea nitrogen/Creatinine [Mass ratio] 16.5 mg/mg [facility] Leukocytes [#/volume] correc melanie for nucleated erythrocytes in Blood by Automated counon 03-06-2024 WBC corrected for nucl RBC Auto (Bld) [#/Vol] 8.1 10 3/uL 4.0-11.0 [facility] MCH Auto (RBC) [Entitic mass ]on 03-06-2024 MCH (RBC) [Entitic mass] 30.4 pg 26.7-34.0 [facility] MCHC Auto (RBC) [Mass/Vol]on 03-06-2024 MCHC (RBC) [Mass/Vol] 31.5 g/dL 29.9-35.[address] [facility] MCV Auto (RBC) [Entitic vol] on 03-06-2024 MCV (RBC) [Entitic vol] 96.5 fL 81.0-99.0 [facility] No Panel Informationon 03-06 Urine Random Creatinine 63.27 mg/dL 20.00-300.00 [facility] Urine Random Total Protein <6.0 mg/dL <=11.9 [facility] 25-Hydroxy Vitamin D Total 37.1 ng/mL [facility] Comment on above: <20 ng/mL Vit D defi cient20-<30 ng/mL Vit D -956 ng/mL Vit D sufficient>100 ng/mL Potential Toxicity Parathyroid Hormone (Intact) 36 pg/mL 15-65 [facility] Comment on above: Performed at: [address] [id number] Director: Raphael Marrero PhD, Phone: [phone] Phosphorus Level 3.2 mg/dL 2.6-4.7 [facility] Platelet mean volume Auto (B ld) [Entitic vol]on 03-06-2024 Platelet mean volume (Bld) [Entitic vol] 9.1 fL 9.5-13.5 [facility] Platelets Auto (Bld) [#/Vol] on 03-06-2024 Platelets (Bld) [#/Vol] 247 10 3/uL 150-450 [facility] RBC Auto (Bld) [#/Vol]on RBC (Bld) [#/Vol] 4.01 10 6/uL 4.20-5.40 [facility] Serum or plasma anion gap de terminationon 03-06-2024 Anion gap [Moles/Vol] 10.2 mmol/L [facility] SYMPTOMATIC COVID-19 ANTIGEN on 04-04-2023 EUA Statement SEE BELOW Normal [facility] Comment on above: Result Comment: [...] sooner. Performed By: #### C VDAGS #### [facility] [address] [place] [address] Dr. Shayne Roldan SARS-CoV-2 (COVID-19) RNA KAYLEE+probe Ql (Unsp spec) Positive Abnormal NEGATIVE [facility] Comment on above: Performed By: #### C VDAGS #### [facility] [address] [place] [address] Dr. Shayne Roldan XR LSPINE 2_3 VIEWSon [...] 12:52 Normal [facility] PTH INTACTon 02-27-2023 PTH, Intact 87 pg/mL Critically high 15-65 [facility] Comment on above: Performed By: #### P THINT #### [facility] [address] [place] [address] Dr. Shayne Roldan HEMOGRAM AND PLATELon 2022 Hematocrit (Bld) [Volume fraction] 44.4 % Normal 36.0-48.0 [facility] Comment on above: Performed By: #### H H #### [facility] [address] [place] [address] Dr. Shayne Roldan Hemoglobin (Bld) [Mass/Vol] 14.5 g/dL Normal 12.0-16.0 [facility] Comment on above: Performed By: #### H H #### [facility] [address] [place] [address] Dr. Shayne Roldan MCH (RBC) [Entitic mass] 30.3 pg Normal 26.7-34.0 [facility] Comment on above: Performed By: #### H H #### [facility] [address] [place] [address] Dr. Shayne Roldan MCHC (RBC) [Mass/Vol] 32.7 g/dL Normal 29.9-35.2 [facility] Comment on above: Performed By: #### H H #### [facility] [address] [place] [address] Dr. Shayne Roldan MCV (RBC) [Entitic vol] 92.9 fL Normal 81.0-99.0 [facility] Comment on above: Performed By: #### H H #### [facility] [address] [place] [address] Dr. Shayne Roldan PLT 367 103/ul Normal 150-450 [facility] Comment on above: Performed By: #### H H #### [facility] [address] [place] [address] Dr. Shayne Roldan RBC 4.78 106/ul Normal 4.20-5.40 [facility] Comment on above: Performed By: #### H H #### [facility] [address] [place] [address] Dr. Shayne Roldan WBC 9.9 103/ul Normal 4.0-11.0 [facility] Comment on above: Performed By: #### H H #### [facility] [address] [place] [address] Dr. Shayne Roldan MAGNESIUMon 02-25-2023 Magnesium [Mass/Vol] 1.6 mg/dL Critically low 1.8-2.4 [facility] Comment on above: Performed By: #### M G, RENAL, URIC #### [facility] [address] [place] [address] Dr. Shayne Roldan RENAL FUNCTION PANELon 02-25 Albumin [Mass/Vol] 3.4 g/dL Normal 3.4-5.0 [facility] Comment on above: Performed By: #### M G, RENAL, URIC #### [facility] [address] [place] [address] Dr. Shayne Roldan Calcium [Mass/Vol] 8.7 mg/dL Normal 8.5-10.1 [facility] Comment on above: Performed By: #### M G, RENAL, URIC #### [facility] [address] [place] [address] Dr. Shayne Roldan Chloride [Moles/Vol] 104 mmol/L Normal 98-107 [facility] Comment on above: Performed By: #### M G, RENAL, URIC #### [facility] [address] [place] [address] Dr. Shayne Roldan CO2 [Moles/Vol] 25.9 mmol/L Normal 21.0-32.0 [facility] Comment on above: Performed By: #### M G, RENAL, URIC #### [facility] [address] [place] [address] Dr. Shayne Roldan Creatinine [Mass/Vol] 1.19 mg/dL Critically high 0.55-1.02 [facility] Comment on above: Performed By: #### M G, RENAL, URIC #### [facility] [address] [place] [address] [address] Shayne Roldan EGFR-AF NEPALESE 55 mL/min/1.73m2 Critically low >=60 [facility] Comment on above: Performed By: #### M G, RENAL, URIC #### [facility] [address] [place] [address] Dr. Shayne Roldan EGFR-NON AF NEPALESE 45 mL/min/1.73m2 Critically low >=60 [facility] Comment on above: Performed By: #### M G, RENAL, URIC #### [facility] [address] [place] [address] Dr. Shayne Roldan Glucose [Mass/Vol] 193 mg/dL Critically high 74-106 [facility] Comment on above: Performed By: #### M G, RENAL, URIC #### [facility] [address] [place] [address] Dr. Shayne Roldan Phosphate [Mass/Vol] 3.2 mg/dL Normal 2.6-4.7 [facility] [facility] Comment on above: Performed By: #### M G, RENAL, URIC #### [facility] [address] [place] [address] Dr. Shayne Roldan Potassium [Moles/Vol] 3.9 mmol/L Normal 3.5-5.1 [facility] Comment on above: Performed By: #### M G, RENAL, URIC #### [facility] [address] [place] [address] Dr. Shayne Roldan Sodium [Moles/Vol] 140 mmol/L Normal 136-145 [facility] Comment on above: Performed By: #### M G, RENAL, URIC #### [facility] [address] [place] [address] Dr. Shayne Roldan Urea nitrogen [Mass/Vol] 17.0 mg/dL Normal 7.0-18.0 [facility] Comment on above: Performed By: #### M G, RENAL, URIC #### [facility] [address] [place] [address] Dr. Shayne Roldan UA RANDOM W/MICROSCOPICon BACTERIA TRACE Abnormal NONE SEEN [facility] Comment on above: Performed By: #### M G, RENAL, URIC #### [facility] [address] [address] [address] Shayne Roldan Bilirubin Ql (U) Negative Normal NEGATIVE [facility] Comment on above: Performed By: #### M G, RENAL, URIC #### [facility] [address] [address] [address] Shayne Roldan CAST NONE SEEN Normal NONE SEEN [facility] Comment on above: Performed By: #### M G, RENAL, URIC #### [facility] [address] [address] [address] Shayne Roldan Clarity (U) CLEAR Normal CLEAR [facility] Comment on above: Performed By: #### M G, RENAL, URIC #### [facility] [address] [address] [address] Shayne Roldan Color (U) LT. YELLOW Normal YELLOW [facility] Comment on above: Performed By: #### M G, RENAL, URIC #### [facility] [address] [address] [address] Shayne Roldan Crystals LM Nom (Urine sed) NONE SEEN Normal NONE SEEN [facility] Comment on above: Performed By: #### M G, RENAL, URIC #### [facility] [address] [place] [address] Dr. Shayne Roldan Epithelial cells LM Ql (Urine sed) RARE Normal NONE SEEN /RARE [facility] Comment on above: Performed By: #### M G, RENAL, URIC #### [facility] [address] [address] [address] Shayne Roldan Glucose Ql (U) Negative Normal NEGATIVE [facility] Comment on above: Performed By: #### M G, RENAL, URIC #### [facility] [address] [address] [address] Shayne Roldan Hemoglobin Ql (U) Negative Normal NEGATIVE The [facility] Comment on above: Performed By: #### M G, RENAL, URIC #### [facility] [address] [address] [address] Shayne Roldan Ketones Ql (U) Negative Normal NEGATIVE [facility] Comment on above: Performed By: #### M G, RENAL, URIC #### [facility] [address] [address] [address] Shayne Roldan LEUKOCYTES Negative Normal NEGATIVE [facility] Comment on above: Performed By: #### M G, RENAL, URIC #### [facility] [address] [address] [address] Shayne Roldan MUCOUS NONE SEEN Normal NONE SEEN [facility] Comment on above: Performed By: #### M G, RENAL, URIC #### [facility] [address] [address] [address] Shayne Roldan Nitrite Ql (U) Negative Normal NEGATIVE [facility] Comment on above: Performed By: #### M G, RENAL, URIC #### [facility] [address] [place] [address] Dr. Shayne Roldan pH (U) 5.0 [pH] Normal 5-9 [facility] Comment on above: Performed By: #### M G, RENAL, URIC #### [facility] [address] [address] [address] Shayne Roldan RBC 0-2 Normal 0-2 [facility] Comment on above: Performed By: #### M G, RENAL, URIC #### [facility] [address] [place] [address] Dr. Shayne Roldan SPEC GRAVITY 1.025 Normal 1.005-<=1.02 5 [facility] Comment on above: Performed By: #### M G, RENAL, URIC #### [facility] [address] [address] [address] Shayne Roldan UA PROTEIN Negative Normal NEGATIVE/ TRACE [facility] Comment on above: Performed By: #### M G, RENAL, URIC #### [facility] [address] [address] [address] Shayne Roldan Urobilinogen Qn (U) 0.2 {Rogelio'U}/dL Normal 0.2 - 1. 0 [facility] Comment on above: Performed By: #### M G, RENAL, URIC #### [facility] [address] [address] [address] Shayne Roldan WBC 0-2 Abnormal NONE SEEN [facility] Comment on above: Performed By: #### M G, RENAL, URIC #### [facility] [address] [address] [address] Shayne Roldan URIC ACID SERUMon 02-25-2023 Urate [Mass/Vol] 6.1 mg/dL Critically high 2.6-6.0 [facility] Comment on above: Performed By: #### M G, RENAL, URIC #### [facility] [address] [address] [address] Shayne Roldan URINE T PROTEIN CREAT RATIOo n 02-25-2023 Protein (U) [Mass/Vol] 13.0 mg/dL Critically high <=12.0 [facility] Comment on above: Performed By: #### M G, RENAL, URIC #### [facility] [address] [place] [address] Dr. Shayne Roldan UR PROT CREAT RAT 0.16 Normal [facility] Comment on above: Performed By: #### M G, RENAL, URIC #### [facility] [address] [address] [address] Shayne Roldan URINE CREAT 83.60 mg/dL Normal 20.00-300.00 [facility] Comment on above: Performed By: #### M G, RENAL, URIC #### [facility] [address] [place] [address] Dr. Shayne Roldan VITAMIN D 25 OHon 02-25-2023 VIT D 25-OH 41.6 ng/mL Normal [facility] Comment on above: Performed By: #### M G, RENAL, URIC #### [facility] [address] [place] [address] Dr. Shayne Roldan VIT D RANGES SEE BELOW Normal [facility] Comment on above: Result Comment: <20 ng/mL Vit D deficient 20 - <30 ng/mL Vit D insufficient 30 - 100 ng/mL Vit D sufficient >100 ng/mL Potential Toxicity Performed By: #### M G, RENAL, URIC #### [facility] [id number] Shayne Roldan XR CHEST 2 Von [...] by: BRITTANY GALDAMEZ Date: 2023-02-22 16:15 Normal [facility] MAMM SCREEN 3D PRATEEK CADon 12-15-2022 MAMM SCREEN 3D PRATEEK CAD Patient: DIANA CHAMPION Exam Date: 12/15/2022 : 1955 Gender:F Ordering : DR JACK HALL . Admission #: [id number] Family : Order #: [id number] CLICK HERE TO VIEW EXAM RADIOLOGY REPORT PROCEDURE: MAMMOGRAM SCREENING 3D BILATERAL CAD COMPARISON: MAMM SCREEN 3D PRATEEK CAD, 11/26/2021. INDICATIONS: Calculator Name NCI Breast Cancer Risk Assessment Tool 5 Year Breast Cancer Risk 1.20% Lifetime Breast Cancer Risk 4.40% Personal Breast Cancer No Personal Ovarian Cancer No Treatments Excision, radiation, chemotherapy Family Cancers None LOCATION: [facility] BREAST COMPOSITION: Almost entirely [...] on 12/15/2022 at 10:51 Normal [facility] XR DEXA BONE DENSITYon 12-15 XR DEXA [...] by: STEPH GRANADOS Date: 2022-12-15 09:50 Normal [facility] PAP ACOG PANEL 2: 30 to 65on 11-16-2022 . . Normal [facility] Comment on above: Performed By: #### [id number] #### [facility] [address] [address] [address] Shayne Roldan Age Gdln ACOG Testing Comment Normal [facility] Comment on above: Result Comment: <21 or >65 or no age provided Performed By: #### [id number] #### [facility] [address] [address] [address] Shayne Roldan DIAGNOSIS: Comment [facility] Comment on above: Result Comment: NEGA TIVE FOR INTRAEPITHELIAL LESION OR MALIGNANCY. Performed By: #### [id number] #### [facility] [address] [address] [address] Shayne Roldan Methodology: Comment [facility] Comment on above: Result Comment: This liquid based ThinPrep(R) pap test was screened with the use of an image guided system. Performed By: #### [id number] #### [facility] [address] [address] [address] Shayne Roldan Note: Comment [facility] Comment on above: Result Comment: The Pap smear is a screening test designed to aid in the detection of premalignant and malignant conditions of the uterine cervix. It is not a diagnostic procedure and should not be used as the sole means of detecting cervical cancer. Both false-positive and false-negative reports do occur. . Performed By: #### [id number] #### [facility] [address] [address] [address] Shayne Roldan Performed by: Comment Normal [facility] Comment on above: Result Comment: Onur Aguilar Supervisor Stone (ASCP) Performed By: #### [id number] #### [facility] [address] [address] [address] Shayne Roldan Specimen adequacy: Comment Normal [facility] Comment on above: Result Comment: Sati sfactory for evaluation. Endocervical and/or squamous metaplastic cells (endocervical component) are present. Performed By: #### [id number] #### [facility] [address] [place] [address] Dr. Shayne Roldan RENAL FUNCTION PANELon 08-19 Albumin [Mass/Vol] 3.4 g/dL Normal 3.4-5.0 [facility] Comment on above: Performed By: #### M G, RENAL, URIC #### [facility] [address] [address] [address] Shayne Roldan Calcium [Mass/Vol] 8.4 mg/dL Critically low 8.5-10.1 [facility] Comment on above: Performed By: #### M G, RENAL, URIC #### [facility] [address] [address] [address] Shayne Roldan Chloride [Moles/Vol] 103 mmol/L Normal 98-107 [facility] Comment on above: Performed By: #### M G, RENAL, URIC #### [facility] [address] [address] [address] Shayne Roldan CO2 [Moles/Vol] 27.8 mmol/L Normal 21.0-32.0 [facility] Comment on above: Performed By: #### M G, RENAL, URIC #### [facility] [address] [address] [address] Shayne Roldan Creatinine [Mass/Vol] 1.02 mg/dL Normal 0.55-1.02 [facility] Comment on above: Performed By: #### M G, RENAL, URIC #### [facility] [address] [address] [address] Shayne Roldan EGFR-AF NEPALESE >60 Normal >=60 [facility] Comment on above: Performed By: #### M G, RENAL, URIC #### [facility] [address] [address] [address] Shayne Roldan EGFR-NON AF NEPALESE 54 mL/min/1.73m2 Critically low >=60 [facility] Comment on above: Performed By: #### M G, RENAL, URIC #### [facility] [address] [address] [address] Shayne Roldan Glucose [Mass/Vol] 110 mg/dL Critically high 74-106 [facility] Comment on above: Performed By: #### M G, RENAL, URIC #### [facility] [address] [place] [address] Dr. Shayne Roldan Phosphate [Mass/Vol] 2.3 mg/dL Critically low 2.6-4.7 [facility] Comment on above: Performed By: #### M G, RENAL, URIC #### [facility] [address] [address] [address] Shayne Roldan Potassium [Moles/Vol] 3.2 mmol/L Critically low 3.5-5.1 [facility] Comment on above: Performed By: #### M G, RENAL, URIC #### [facility] [address] [address] [address] Shayne Roldan Sodium [Moles/Vol] 138 mmol/L Normal 136-145 [facility] Comment on above: Performed By: #### M G, RENAL, URIC #### [facility] [address] [address] [address] Shayne Roldan Urea nitrogen [Mass/Vol] 14.0 mg/dL Normal 7.0-18.0 [facility] Comment on above: Performed By: #### M G, RENAL, URIC #### [facility] [address] [address] [address] Shayne Roldan PTH INTACTon 08-06-2022 PTH, Intact 40 pg/mL Normal 15-65 [facility] Comment on above: Performed By: #### M G, RENAL, URIC #### [facility] [address] [place] [address] Dr. Shayne Roldan HEMOGRAM AND PLATELon 2021 Hematocrit (Bld) [Volume fraction] 39.8 % Normal 36.0-48.0 [facility] Comment on above: Performed By: #### M G, RENAL, URIC #### [facility] [address] [place] [address] Dr. Shayne Roldan Hemoglobin (Bld) [Mass/Vol] 13.4 g/dL Normal 12.0-16.0 [facility] Comment on above: Performed By: #### M G, RENAL, URIC #### [facility] [address] [place] [address] Dr. Shayne Roldan MCH (RBC) [Entitic mass] 30.5 pg Normal 26.7-34.0 [facility] Comment on above: Performed By: #### M G, RENAL, URIC #### [facility] [address] [place] [address] Dr. Shayne Roldan MCHC (RBC) [Mass/Vol] 33.7 g/dL Normal 29.9-35.2 [facility] Comment on above: Performed By: #### M G, RENAL, URIC #### [facility] [address] [place] [address] Dr. Shayne Roldan MCV (RBC) [Entitic vol] 90.5 fL Normal 81.0-99.0 [facility] Comment on above: Performed By: #### M G, RENAL, URIC #### [facility] [address] [place] [address] Dr. Shayne Roldan PLT 299 103/ul Normal 150-450 [facility] Comment on above: Performed By: #### M G, RENAL, URIC #### [facility] [address] [place] [address] Dr. Shayne Roldan RBC 4.40 106/ul Normal 4.20-5.40 [facility] Comment on above: Performed By: #### M G, RENAL, URIC #### [facility] [address] [address] [address] Shayne Roldan WBC 8.8 103/ul Normal 4.0-11.0 [facility] Comment on above: Performed By: #### M G, RENAL, URIC #### [facility] [address] [address] [address] Shayne Roldan MAGNESIUMon 08-05-2022 Magnesium [Mass/Vol] 1.5 mg/dL Critically low 1.8-2.4 [facility] Comment on above: Performed By: #### M G, RENAL, URIC #### [facility] [address] [address] [address] Shayne Roldan RENAL FUNCTION PANELon 08-05 Albumin [Mass/Vol] 3.5 g/dL Normal 3.4-5.0 [facility] Comment on above: Performed By: #### M G, RENAL, URIC #### [facility] [address] [address] [address] Shayne Roldan Calcium [Mass/Vol] 8.4 mg/dL Critically low 8.5-10.1 [facility] Comment on above: Performed By: #### M G, RENAL, URIC #### [facility] [address] [address] [address] Shayne Roldan Chloride [Moles/Vol] 101 mmol/L Normal 98-107 [facility] Comment on above: Performed By: #### M G, RENAL, URIC #### [facility] [address] [address] [address] Shayne Roldan CO2 [Moles/Vol] 29.5 mmol/L Normal 21.0-32.0 [facility] Comment on above: Performed By: #### M G, RENAL, URIC #### [facility] [address] [address] [address] Shayne Roldan Creatinine [Mass/Vol] 1.04 mg/dL Critically high 0.55-1.02 [facility] Comment on above: Performed By: #### M G, RENAL, URIC #### [facility] [address] [address] [address] Shayne Roldan EGFR-AF NEPALESE >60 Normal >=60 [facility] Comment on above: Performed By: #### M G, RENAL, URIC #### [facility] [address] [address] [address] Shayne Roldan EGFR-NON AF NEPALESE 53 mL/min/1.73m2 Critically low >=60 [facility] Comment on above: Performed By: #### M G, RENAL, URIC #### [facility] [address] [address] [address] Shayne Roldan Glucose [Mass/Vol] 92 mg/dL Normal 74-106 [facility] Comment on above: Performed By: #### M G, RENAL, URIC #### [facility] [address] [place] [address] Dr. Shayne Roldan Phosphate [Mass/Vol] 2.4 mg/dL Critically low 2.6-4.7 [facility] Comment on above: Performed By: #### M G, RENAL, URIC #### [facility] [address] [address] [address] Shayne Roldan Potassium [Moles/Vol] 2.8 mmol/L Critically low 3.5-5.1 [facility] Comment on above: Performed By: #### M G, RENAL, URIC #### [facility] [address] [address] [address] Shayne Roldan Sodium [Moles/Vol] 137 mmol/L Normal 136-145 [facility] Comment on above: Performed By: #### M G, RENAL, URIC #### [facility] [address] [place] [address] Dr. Shayne Roldan Urea nitrogen [Mass/Vol] 10.0 mg/dL Normal 7.0-18.0 [facility] Comment on above: Performed By: #### M G, RENAL, URIC #### [facility] [address] [address] [address] Shayne Roldan UA RANDOM W/MICROSCOPICon BACTERIA SMALL Abnormal NONE SEEN [facility] Comment on above: Performed By: #### U AMIC #### [facility] [address] [address] [address] Shayne Roldan Bilirubin Ql (U) Negative Normal NEGATIVE [facility] Comment on above: Performed By: #### U AMIC #### [facility] [address] [address] [address] Shayne Roldan CAST NONE SEEN Normal NONE SEEN [facility] Comment on above: Performed By: #### U AMIC #### [facility] [address] [address] [address] Shayne Roldan Clarity (U) CLEAR Normal CLEAR [facility] Comment on above: Performed By: #### U AMIC #### [facility] [address] [address] [address] Shayne Roldan Color (U) LT. YELLOW Normal YELLOW [facility] Comment on above: Performed By: #### U AMIC #### [facility] [address] [address] [address] Shayne Roldan Crystals LM Nom (Urine sed) NONE SEEN Normal NONE SEEN [facility] Comment on above: Performed By: #### U AMIC #### [facility] [address] [address] [address] Shayne Roldan Epithelial cells LM Ql (Urine sed) FEW Abnormal NONE SEEN /RARE [facility] Comment on above: Performed By: #### U AMIC #### [facility] [address] [address] [address] Shayne Roldan Glucose Ql (U) Negative Normal NEGATIVE [facility] Comment on above: Performed By: #### U AMIC #### [facility] [address] [address] [address] Shayne Roldan Hemoglobin Ql (U) Negative Normal NEGATIVE [facility] Comment on above: Performed By: #### U AMIC #### [facility] [address] [address] [address] Shayne Roldan Ketones Ql (U) Negative Normal NEGATIVE [facility] Comment on above: Performed By: #### U AMIC #### [facility] [address] [address] [address] Shayne Roldan LEUKOCYTES TRACE Abnormal NEGATIVE [facility] Comment on above: Performed By: #### U AMIC #### [facility] [address] [place] [address] Dr. Shayne Roldan MUCOUS NONE SEEN Normal NONE SEEN [facility] Comment on above: Performed By: #### U AMIC #### [facility] [address] [address] [address] Shayne Roldan Nitrite Ql (U) Negative Normal NEGATIVE [facility] Comment on above: Performed By: #### U AMIC #### [facility] [address] [place] [address] Dr. Shayne Roldan pH (U) 6.0 [pH] Normal 5-9 [facility] Comment on above: Performed By: #### U AMIC #### [facility] [address] [place] [address] Dr. Shayne Roldan RBC NONE SEEN Abnormal 0-2 [facility] Comment on above: Performed By: #### U AMIC #### [facility] [address] [place] [address] Dr. Shayne Roldan SPEC GRAVITY <=1.005 Abnormal 1.005-<=1.02 5 [facility] Comment on above: Performed By: #### U AMIC #### [facility] [address] [place] [address] Dr. Shayne Roldan UA PROTEIN Negative Normal NEGATIVE/ TRACE [facility] Comment on above: Performed By: #### U AMIC #### [facility] [address] [place] [address] Dr. Shayne Roldan Urobilinogen Qn (U) 0.2 {Rogelio'U}/dL Normal 0.2 - 1. 0 [facility] Comment on above: Performed By: #### U AMIC #### [facility] [address] [place] [address] Dr. Shayne Roldan WBC 5-10 Abnormal NONE SEEN [facility] Comment on above: Performed By: #### U AMIC #### [facility] [address] [place] [address] Dr. Shayne Roldan URIC ACID SERUMon 08-05-2022 Urate [Mass/Vol] 6.5 mg/dL Critically high 2.6-6.0 [facility] Comment on above: Performed By: #### M G, RENAL, URIC #### [facility] [address] [address] [address] Shayne Roldan URINE T PROTEIN CREAT RATIOo n 08-05-2022 Protein (U) [Mass/Vol] 4.8 mg/dL Normal <=12.0 [facility] Comment on above: Performed By: #### U RTPCR #### [facility] [address] [place] [address] Dr. Shayne Roldan UR PROT CREAT RAT 0.09 Normal [facility] Comment on above: Performed By: #### U RTPCR #### [facility] [address] [place] [address] Dr. Shayne Roldan URINE CREAT 52.65 mg/dL Normal 20.00-300.00 [facility] Comment on above: Performed By: #### U RTPCR #### [facility] [address] [place] [address] Dr. Shayne Roldan VITAMIN D 25 OHon 08-05-2022 VIT D 25-OH 38.9 ng/mL Normal [facility] Comment on above: Performed By: #### M G, RENAL, URIC #### [facility] [address] [place] [address] Dr. Shayne Roldan VIT D RANGES SEE BELOW Normal [facility] Comment on above: Result Comment: <20 ng/mL Vit D deficient 20 - <30 ng/mL Vit D insufficient 30 - 100 ng/mL Vit D sufficient >100 ng/mL Potential Toxicity Performed By: #### M G, RENAL, URIC #### [facility] [address] [place] [address] Dr. Shayne Roldan IMMUNOGLOBULINS IGA/IGM/IGG/ IGE QUANTITAon 07-12-2022 Immunoglobulin A, Qn, Serum 295 mg/dL Normal 87-352 [facility] Comment on above: Result Comment: Perf ormed at: CB Performed By: #### M G, RENAL, URIC #### [facility] [address] [place] [address] Dr. Shayne Roldan Immunoglobulin E, Total 32 IU/mL Normal 6-495 [facility] Comment on above: Result Comment: Perf ormed at: BN Performed By: #### M G, RENAL, URIC #### [facility] [address] [place] [address] Dr. Shayne Roldan Immunoglobulin G, Qn, Serum 729 mg/dL Normal 586-1602 [facility] Comment on above: Result Comment: Perf ormed at: CB Performed By: #### M G, RENAL, URIC #### [facility] [address] [place] [address] Dr. Shayne Roldan Immunoglobulin M, Qn, Serum 75 mg/dL Normal 26-217 [facility] Comment on above: Result Comment: Perf ormed at: CB Performed By: #### M G, RENAL, URIC #### [facility] [address] [place] [address] Dr. Shayne Roldan CBC AUTO DIFFon 07-05-2022 BASO # 0.1 103/ul Normal 0.0-0.1 [facility] Comment on above: Performed By: #### M G, RENAL, URIC #### [facility] [address] [place] [address] Dr. Shayne Roldan Basophils/100 WBC (Bld) 0.7 % Normal 0.2-2.0 [facility] Comment on above: Performed By: #### M G, RENAL, URIC #### [facility] [address] [place] [address] Dr. Shayne Roldan EO # 0.4 103/ul Normal 0.0-0.7 [facility] Comment on above: Performed By: #### M G, RENAL, URIC #### [facility] [address] [place] [address] Dr. Shayne Roldan Eosinophils/100 WBC (Bld) 4.4 % Normal 0.9-7.0 [facility] Comment on above: Performed By: #### M G, RENAL, URIC #### [facility] [address] [place] [address] Dr. Shayne Roldan Erythrocyte distribution width (RBC) [Ratio] 12.6 % Normal 11.0-15.0 [facility] Comment on above: Performed By: #### M G, RENAL, URIC #### [facility] [address] [place] [address] Dr. Shayne Roldan Hematocrit (Bld) [Volume fraction] 40.2 % Normal 36.0-48.0 [facility] Comment on above: Performed By: #### M G, RENAL, URIC #### [facility] [address] [place] [address] Dr. Shayne Roldan Hemoglobin (Bld) [Mass/Vol] 13.6 g/dL Normal 12.0-16.0 [facility] Comment on above: Performed By: #### M G, RENAL, URIC #### [facility] [address] [place] [address] Dr. Shayne Roldan IG # 0.07 10e3/ul Critically high 0.00-0.03 [facility] Comment on above: Performed By: #### M G, RENAL, URIC #### [facility] [address] [place] [address] Dr. Shayne Roldan IG % 0.8 % Critically high 0.0-0.5 [facility] Comment on above: Performed By: #### M G, RENAL, URIC #### [facility] [address] [place] [address] Dr. Shayne Roldan LYMPH # 2.3 103/ul Normal 1.2-3.8 [facility] Comment on above: Performed By: #### M G, RENAL, URIC #### [facility] [address] [place] [address] Dr. Shayne Roldan Lymphocytes/100 WBC (Bld) 24.7 % Normal 20.5-60.0 [facility] Comment on above: Performed By: #### M G, RENAL, URIC #### [facility] [address] [place] [address] Dr. Shayne Roldan MANUAL DIFF REQ NO Normal [facility] Comment on above: Performed By: #### M G, RENAL, URIC #### [facility] [address] [address] [address] Shayne Roldan MCH (RBC) [Entitic mass] 30.7 pg Normal 26.7-34.0 [facility] Comment on above: Performed By: #### M G, RENAL, URIC #### [facility] [address] [place] [address] Dr. Shayne Roldan MCHC (RBC) [Mass/Vol] 33.8 g/dL Normal 29.9-35.2 [facility] Comment on above: Performed By: #### M G, RENAL, URIC #### [facility] [address] [place] [address] Dr. Shayne Roldan MCV (RBC) [Entitic vol] 90.7 fL Normal 81.0-99.0 [facility] Comment on above: Performed By: #### M G, RENAL, URIC #### [facility] [address] [place] [address] Dr. Shayne Roldan MONO # 0.7 103/ul Normal 0.3-0.8 [facility] Comment on above: Performed By: #### M G, RENAL, URIC #### [facility] [address] [place] [address] Dr. Shayne Roldan Monocytes/100 WBC (Bld) 7.7 % Normal 1.7-12.0 [facility] Comment on above: Performed By: #### M G, RENAL, URIC #### [facility] [address] [place] [address] Dr. Shayne Roldan NEUT # 5.7 103/ul Normal 1.4-6.5 [facility] Comment on above: Performed By: #### M G, RENAL, URIC #### [facility] [address] [place] [address] Dr. Shayne Roldan Neutrophils/100 WBC (Bld) 61.7 % Normal 43.0-75.0 [facility] Comment on above: Performed By: #### M G, RENAL, URIC #### [facility] [address] [place] [address] Dr. Shayne Roldan Platelet mean volume (Bld) [Entitic vol] 8.8 fL Critically low 9.5-13.5 [facility] Comment on above: Performed By: #### M G, RENAL, URIC #### [facility] [address] [address] [address] Shayne Roldan PLT 279 103/ul Normal 150-450 [facility] Comment on above: Performed By: #### M G, RENAL, URIC #### [facility] [address] [address] [address] Shayne Roldan RBC 4.43 106/ul Normal 4.20-5.40 [facility] Comment on above: Performed By: #### M G, RENAL, URIC #### [facility] [address] [address] [address] Shayne Roldan WBC 9.1 103/ul Normal 4.0-11.0 [facility] Comment on above: Performed By: #### M G, RENAL, URIC #### [facility] [address] [address] [address] Shayne Roldan [facility]19 [facility]on SARS-CoV-2 (COVID-19) RNA KAYLEE+probe Ql (Unsp spec) Not detected Normal NOT DETECTED [facility] Comment on above: Result Comment: This test is not yet approved or cleared by the [place] FDA. When there are no FDA-approved or cleared tests available, and other criteria are met, FDA can make tests available under an emergency access mechanism called an Emergency Use Authorization (EUA). The EUA for this test is supported by the Web Applications Administrator of Health and Human Service's (HHS's) [...] By: #### M G, RENAL, URIC #### [facility] [address] [place], [place] [address] Dr. Shayne Roldan XR CHEST 2 Von [...] NARDA LONDONO Date: 2022-06-08 19:58 Normal [facility] Covid-19 PCR ([facility])on SARS-CoV-2 (COVID-19) RNA KAYLEE+probe Ql (Unsp spec) Not detected Normal NOT DETECTED [facility] Comment on above: Result Comment: This test is not yet approved or cleared by the [place] FDA. When there are no FDA-approved or cleared tests available, and other criteria are met, FDA can make tests available under an emergency access mechanism called an Emergency Use Authorization (EUA). The EUA for this test is supported by the Web Applications Administrator of Health and Human Service's (HHS's) [...] SARS-CoV-2. Performed By: #### C VDTBH #### [facility] [address] [place], [place] [address] Dr. Shayne Roldan DEXA AXIALon 03-01-2022 DEXA AXIAL [facility] Department of Radiology [address] [place] [id number] == Patient Name: DIANA CHAMPION : 1955 Sex: F Age: Race: White Pt. Location: Patient Status: D Ordered Date: 02/24/2022 1:25:00 PM Completed Date: 03/01/2022 09:46 AM Requesting Provider: CINDA ANTONIO Attending Provider: Report Copy To: Signs & Symptoms: Z78.0 Asymptomatic menopausal state I10 History: [place] Comments: Exam: DEXA AXIAL == DEXA AXIAL [...] characteristics. Electronically signed: Luzma Marks. Transcribed by: [email or web address], User Resident: Electronically Signed by: LUZMA MARKS @ 03/02/2022 01:07 PM Normal [facility] SCOLIOSIS 2 [facility] 02-24-2022 SCOLIOSIS 2 [facility] Department of Radiology [address] [place] [id number] == Patient Name: DIANA CHAMPION : 1955 Sex: F Age: Race: White Pt. Location: Patient Status: D Ordered Date: 02/24/2022 1:25:00 PM Completed Date: 02/24/2022 01:44 PM Requesting Provider: CINDA ANTONIO Attending Provider: Report Copy To: Signs & Symptoms: M43.10 Spondylolisthesis, site unspecified I10 History: Comments: Views (X-RAY, SCOLIOSIS): PA, Lateral evaluate Exam: SCOLIOSIS 2 [facility] == Scoliosis. Worsening pain. Frontal and lateral thoracolumbar spine IMPRESSION: 1. Diffuse disc disease and facet arthritis. Right convex mid lumbar curvature measuring 16 degrees. Interbody fusion hardware lower lumbar spine. Electronically signed: Hugo Lynn. Transcribed by: [email or web address], User Resident: Electronically Signed by: HUGO LYNN @ 02/26/2022 11:07 AM Normal [facility] Comment on above: Order Comment: Views (X-RAY, SCOLIOSIS): PA, Lateral evaluate CT LUMBAR SPINE W CONTRASTon 01-24-2022 CT LUMBAR SPINE W CONTRAST [facility] Department of Radiology [address] [place] [id number] == Patient Name: DIANA CHAMPION : [...] L1-2. Electronically signed: Gaurang Hess. Transcribed by: [email or web address], User Resident: Electronically Signed by: GAURANG HESS @ 01/26/2022 08:58 AM Normal [facility] Comment on above: Order Comment: , CT MYELOGRAM>PAPER WORK IN CHART LUMBAR MYELOGRAMon LUMBAR MYELOGRAM [facility] Department of Radiology [address] [place] [phone] == Patient Name: DIANA CHAMPION : 1955 Sex: F Age: Race: White Pt. Location: Patient Status: O Ordered Date: 01/09/2022 9:00:00 AM Completed Date: 01/24/2022 02:37 PM Requesting Provider: JOO LINN Attending Provider: JOO LINN Report Copy To: UNKNOWN, PHYSICIAN Signs & Symptoms: M54.16 Radiculopathy, lumbar region I10 History: Jessica Is patient on thinners? 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 Consent was obtained. Timeout: [place] protocol timeout verification performed. PROCEDURE: Estimated blood [...] Approved by:Debbie Reneuo01/24/2022 3:51 PM. I, Greg Mcmahan,have reviewed the image(s) and agree with the findings in this report. Electronically signed: Greg Mcmahan. Transcribed by: [email or web address], User Resident: DEBBIE JI Electronically Signed by: GREG MCMAHAN @ 01/24/2022 04:07 PM I personally read this/these film(s) with this resident Normal [facility] Comment on above: Order Comment: , CT MYELOGRAM> PAPER WORK SCANNED IN CHART , CT MYELOGRAM> PAPER WORK SCANNED IN CHART , , , Ordering Provider - JOO LINN MD , HIP LEFT 1 OR 2 VWS WITH PEL VISon 01-06-2022 HIP LEFT 1 OR 2 VWS WITH PELVIS [facility] Department of Radiology [address] [place] [phone] == Patient Name: DIANA CHAMPION : [...] hardware. Electronically signed: Joe Matthew. Transcribed by: [email or web address], User Resident: Electronically Signed by: JOE MATTHEW @ 01/09/2022 04:45 PM Normal [facility] Comment on above: Order Comment: Evalu ate Vital Signs Date Time Vital Sign Value Performing Clinician Facility 05-19-2025 08:43-0400 Body mass index (BMI) [Ratio] 40.58 kg/m2 Kaylene Owenz [employer] ATTENDANT Work Phone: [facility] 05-19-2025 08:43-0400 Body temperature 98.49 [degF] Kaylene Aichholz [employer]Y CRI[employer] ATTENDANT Work Phone: [facility] 05-19-2025 08:43-0400 Body weight 107.23 kg Kaylene Aichholz [employer]RI[employer] ATTENDANT Work Phone: [facility] 05-19-2025 08:43-0400 Diastolic blood pressure 76 mm[Hg] Kaylene Aichholz [employer]PPLY CRIB ATTENDANT Work Phone: [facility] 05-19-2025 08:43-0400 Heart rate 74 /min Kaylene Aichholz [employer]RI[employer] ATTENDANT Work Phone: [facility] 05-19-2025 08:43-0400 Respiratory rate 22 /min Kaylene Aichholz [employer]PPL[employer] CRIB ATTENDANT Work Phone: [facility] 05-19-2025 08:43-0400 SaO2% (BldA) [Mass fraction] 94 % Kaylene Aichholz [employer] CRI[employer] ATTENDANT Work Phone: [facility] 05-19-2025 08:43-0400 Systolic blood pressure 118 mm[Hg] Kaylene Aichholz [employer]PPLY CRIB ATTENDANT Work Phone: [facility] 04-09-2025 11:03-0400 Body mass index (BMI) [Ratio] 41.2 kg/m2 Kaylene Aichholz [employer] CRI[employer] ATTENDANT Work Phone: [facility] 04-09-2025 11:03-0400 Body temperature 98.2 [degF] Kaylene Aichholz [employer]PPLY CRIB ATTENDANT Work Phone: [facility] 04-09-2025 11:03-0400 Body weight 108.86 kg Kaylene Aichholz [employer]PPL[employer] CRIB ATTENDANT Work Phone: [facility] 04-09-2025 11:03-0400 Diastolic blood pressure 70 mm[Hg] Kaylene Aichholz [employer]Y CRIB ATTENDANT Work Phone: [facility] 04-09-2025 11:03-0400 Heart rate 73 /min Kaylene Aichholz [employer] C[employer] ATTENDANT Work Phone: [facility] 04-09-2025 11:03-0400 Respiratory rate 22 /min Kaylene Aichholz [employer] CRIB ATTENDANT Work Phone: [facility] 04-09-2025 11:03-0400 SaO2% (BldA) [Mass fraction] 93 % Kaylene Aichholz [employer] CRI[employer] ATTENDANT Work Phone: [facility] 04-09-2025 11:03-0400 Systolic blood pressure 122 mm[Hg] Kaylene Aichholz [employer]PPLY CRIB ATTENDANT Work Phone: [facility] 03-24-2025 09:57-0400 Body temperature 98.06 [degF] MAG JOSE ALEJANDRO [facility] 03-24-2025 09:57-0400 Diastolic blood pressure 76 mm[Hg] MAG JOSE ALEJANDRO [facility] 03-24-2025 09:57-0400 Respiratory rate 16 /min MAG JOSE ALEJANDRO [facility] 03-24-2025 09:57-0400 Systolic blood pressure 128 mm[Hg] MAG JOSE ALEJANDRO [facility] 02-17-2025 08:31-0400 Body temperature 98.8 [degF] Kaylene Aichholz [employer]PPLY CRIB ATTENDANT Work Phone: [facility] 02-17-2025 08:31-0400 Diastolic blood pressure 72 mm[Hg] Kaylene Brianhholz [employer]PPLY CRIB ATTENDANT Work Phone: [facility] 02-17-2025 08:31-0400 Heart rate 85 /min Kaylene Aichholz [employer]Y CRIB ATTENDANT Work Phone: [facility] 02-17-2025 08:31-0400 Respiratory rate 24 /min Kaylene Aichholz [employer]PPL[employer] CRIB ATTENDANT Work Phone: [facility] 02-17-2025 08:31-0400 SaO2% (BldA) [Mass fraction] 90 % Kaylene Brianhholz [employer]Y CRIB ATTENDANT Work Phone: [facility] 02-17-2025 08:31-0400 Systolic blood pressure 118 mm[Hg] Kaylene Aichholz SUPPLY CRIB ATTENDANT Work Phone: [facility] 01-16-2025 09:50-0400 Body temperature 99 [degF] Kaylene Brianhholz [employer]PPLY CRIB ATTENDANT Work Phone: [facility] 01-16-2025 09:50-0400 Diastolic blood pressure 80 mm[Hg] Kaylene Aichholz [employer]Y CRIB ATTENDANT Work Phone: [facility] 01-16-2025 09:50-0400 Heart rate 68 /min Kaylene Aichholz [employer]Y CRIB ATTENDANT Work Phone: [facility] 01-16-2025 09:50-0400 Respiratory rate 26 /min Kaylene Aichholz [employer]PPL[employer] CRIB ATTENDANT Work Phone: [facility] 01-16-2025 09:50-0400 SaO2% (BldA) [Mass fraction] 93 % Kaylene Aichholz [employer] CRI[employer] ATTENDANT Work Phone: [facility] 01-16-2025 09:50-0400 Systolic blood pressure 108 mm[Hg] Kaylene Aichholz [employer] CRIB ATTENDANT Work Phone: [facility] 01-02-2025 14:54-0500 Body mass index (BMI) [Ratio] 40.2 kg/m2 Kaylene Brianhholz [employer] CRI[employer] ATTENDANT Work Phone: [facility] 01-02-2025 14:54-0500 Body temperature 99.61 [degF] Kaylene Weaverz [employer]PPLY CRIB ATTENDANT Work Phone: [facility] 01-02-2025 14:54-0500 Body weight 106.23 kg Kaylene Weaverz [employer]Y CRIB ATTENDANT Work Phone: [facility] 01-02-2025 14:54-0500 Diastolic blood pressure 84 mm[Hg] Kaylene Weaverz [employer] CRIB ATTENDANT Work Phone: [facility] 01-02-2025 14:54-0500 Heart rate 78 /min Kaylene Weaverz [employer] CRIB ATTENDANT Work Phone: [facility] 01-02-2025 14:54-0500 Respiratory rate 26 /min Kaylene Weaverz [employer] CRIB ATTENDANT Work Phone: [facility] 01-02-2025 14:54-0500 SaO2% (BldA) [Mass fraction] 91 % Kaylene López [employer]Y CRIB ATTENDANT Work Phone: [facility] 01-02-2025 14:54-0500 Systolic blood pressure 120 mm[Hg] Kaylene Weaverz [employer] CRIB ATTENDANT Work Phone: [facility] 11-28-2024 13:08-0500 Body height 162.6 cm Aida Reese SUPPLY CRIB ATTENDANT Work Phone: [facility] 11-28-2024 13:08-0500 Body mass index (BMI) [Ratio] 40.51 kg/m2 Aida Reese [employer] ATTENDANT Work Phone: [facility] 11-28-2024 13:08-0500 Body temperature 97.9 [degF] Aida Reese SUPPLY CRIB ATTENDANT Work Phone: [facility] 11-28-2024 13:08-0500 Body weight 107.05 kg Aida Reese SUPPLY CRIB ATTENDANT Work Phone: [facility] 11-28-2024 13:08-0500 Diastolic blood pressure 82 mm[Hg] Aida Reese SUPPLY CRIB ATTENDANT Work Phone: [facility] 11-28-2024 13:08-0500 Heart rate 79 /min Aida Reese [employer]PPL[employer] CRIB ATTENDANT Work Phone: [facility] 11-28-2024 13:08-0500 Respiratory rate 20 /min Aida Reese [employer]PPL[employer] CRIB ATTENDANT Work Phone: [facility] 11-28-2024 13:08-0500 SaO2% (BldA) [Mass fraction] 96 % Aida Reese [employer] ATTENDANT Work Phone: [facility] 11-28-2024 13:08-0500 Systolic blood pressure 148 mm[Hg] Aida Reese [employer]PPLY CRIB ATTENDANT Work Phone: [facility] 11-12-2024 10:24-0500 Body mass index (BMI) [Ratio] 40.75 kg/m2 Aida Reese [employer] ATTENDANT Work Phone: [facility] 11-12-2024 10:24-0500 Body temperature 98.71 [degF] Aida Reese SUPPLY CRIB ATTENDANT Work Phone: [facility] 11-12-2024 10:24-0500 Body weight 107.68 kg Aida Reese [employer]PPLY C[employer]B ATTENDANT Work Phone: [facility] 11-12-2024 10:24-0500 Diastolic blood pressure 78 mm[Hg] Aida Reese SUPPLY CRIB ATTENDANT Work Phone: [facility] 11-12-2024 10:24-0500 Heart rate 68 /min Aida Reese [employer]B ATTENDANT Work Phone: [facility] 11-12-2024 10:24-0500 Respiratory rate 18 /min Aida Reese [employer]PPL[employer] CRIB ATTENDANT Work Phone: [facility] 11-12-2024 10:24-0500 SaO2% (BldA) [Mass fraction] 92 % Aida Reese [employer]RIB ATTENDANT Work Phone: [facility] 11-12-2024 10:24-0500 Systolic blood pressure 134 mm[Hg] Aida Reese SUPPLY CRIB ATTENDANT Work Phone: [facility] 10-15-2024 14:29-0500 Blood Pressure Location MAG JOSE ALEJANDRO [facility] 10-15-2024 14:29-0500 Diastolic blood pressure 75 mm[Hg] MAG JOSE ALEJANDRO [facility] 10-15-2024 14:29-0500 Heart rate 64 /min MAG JOSE ALEJANDRO [facility] 10-15-2024 14:29-0500 Respiratory rate 20 /min MAG JOSE ALEJANDRO [facility] 10-15-2024 14:29-0500 Systolic blood pressure 147 mm[Hg] MAG JOSE ALEJANDRO [facility] 10-07-2024 14:22-0500 Body height 162.6 cm Aida Reese [employer] ATTENDANT Work Phone: [facility] 10-07-2024 14:22-0500 Body mass index (BMI) [Ratio] 40.85 kg/m2 Aida Reese [employer]PPL[employer]RI[employer] ATTENDANT Work Phone: [facility] 10-07-2024 14:22-0500 Body weight 107.96 kg Aida Reese [employer]RI[employer] ATTENDANT Work Phone: [facility] 10-07-2024 14:22-0500 Diastolic blood pressure 72 mm[Hg] Aida Reese [employer] ATTENDANT Work Phone: [facility] 10-07-2024 14:22-0500 Heart rate 64 /min Aida Reese [employer] ATTENDANT Work Phone: [facility] 10-07-2024 14:22-0500 Respiratory rate 18 /min Aida Reese [employer] ATTENDANT Work Phone: [facility] 10-07-2024 14:22-0500 SaO2% (BldA) [Mass fraction] 93 % Aida Reese [employer]RI[employer] ATTENDANT Work Phone: [facility] 10-07-2024 14:22-0500 Systolic blood pressure 110 mm[Hg] Aida Reese SUPPLY CRIB ATTENDANT Work Phone: [facility] 09-05-2024 12:53-0400 Body height 162.56 cm Aida Reese SUPPLY CRIB ATTENDANT-C Work Phone: [facility] 09-05-2024 12:53-0400 Body weight 104.32 kg Aida Reese SUPPLY CRIB ATTENDANT-C Work Phone: [facility] 08-19-2024 11:41-0400 Body mass index (BMI) [Ratio] 40.34 kg/m2 Aida Reese [employer]PPLY [employer]RI[employer] ATTENDANT Work Phone: [facility] 08-19-2024 11:41-0400 Body temperature 97.59 [degF] Aida Reese [employer]PPLY CRIB ATTENDANT Work Phone: [facility] 08-19-2024 11:41-0400 Body weight 106.59 kg Aida Reese [employer]PPLY [employer]RIB ATTENDANT Work Phone: [facility] 08-19-2024 11:41-0400 Diastolic blood pressure 76 mm[Hg] Aida Reese SUPPLY CRIB ATTENDANT Work Phone: [facility] 08-19-2024 11:41-0400 Heart rate 57 /min Aida Reese [employer]Y CRIB ATTENDANT Work Phone: [facility] 08-19-2024 11:41-0400 SaO2% (BldA) [Mass fraction] 90 % Aida Reese [employer]PPLY CRIB ATTENDANT Work Phone: [facility] 08-19-2024 11:41-0400 Systolic blood pressure 138 mm[Hg] Aida Reese SUPPLY CRIB ATTENDANT Work Phone: [facility] 07-11-2024 08:25-0400 Body height 162.6 cm Aida Reese SUPPLY CRIB ATTENDANT Work Phone: [facility] 07-11-2024 08:25-0400 Body mass index (BMI) [Ratio] 41.02 kg/m2 Aida Reese [employer]PPLY CRIB ATTENDANT Work Phone: [facility] 07-11-2024 08:25-0400 Body temperature 98.1 [degF] Aida Reese SUPPLY CRIB ATTENDANT Work Phone: [facility] 07-11-2024 08:25-0400 Body weight 108.41 kg Aida Reese SUPPLY CRIB ATTENDANT Work Phone: [facility] 07-11-2024 08:25-0400 Diastolic blood pressure 74 mm[Hg] Aida Reese SUPPLY CRIB ATTENDANT Work Phone: [facility] 07-11-2024 08:25-0400 Heart rate 83 /min Aida Reese [employer]PPLY CRIB ATTENDANT Work Phone: [facility] Comment on above: 94% O2 07-11-2024 08:25-0400 Systolic blood pressure 130 mm[Hg] Aida Reese SUPPLY CRIB ATTENDANT Work Phone: [facility] 03-14-2024 10:30-0400 Body height 165.1 cm Steph Collier Work Phone: [facility] 03-14-2024 10:30-0400 Body mass index (BMI) [Ratio] 39 kg/m2 Steph Collier Work Phone: [facility] 03-14-2024 10:30-0400 Body temperature 97.4 [degF] Steph Collier Work Phone: [facility] 03-14-2024 10:30-0400 Body weight 106.36 kg Steph Collier Work Phone: [facility] 03-14-2024 10:30-0400 Diastolic blood pressure 80 mm[Hg] Steph Collier Work Phone: [facility] 03-14-2024 10:30-0400 Heart rate 77 /min Steph Collier Work Phone: [facility] 03-14-2024 10:30-0400 Inhaled oxygen flow rate 3 L/min Steph Collier Work Phone: [facility] 03-14-2024 10:30-0400 Respiratory rate 20 /min Steph Collier Work Phone: [facility] 03-14-2024 10:30-0400 SaO2% (BldA) [Mass fraction] 92 % Steph Collier Work Phone: [facility] 03-14-2024 10:30-0400 Systolic blood pressure 120 mm[Hg] Steph Collier Work Phone: [facility] 08-17-2023 09:20-0400 Body height 165.1 cm Herberth Joana Other [facility] Other 08-17-2023 09:20-0400 Body mass index (BMI) [Ratio] 38.1 kg/m2 Herberth Joana Other [facility] Other 08-17-2023 09:20-0400 Body temperature 98.8 [degF] Herberth Joana Other [facility] Other 08-17-2023 09:20-0400 Body weight 103.87 kg Herberth Joana Other [facility] Other 08-17-2023 09:20-0400 Diastolic blood pressure 85 mm[Hg] Herberth Joana Other [facility] Other 08-17-2023 09:20-0400 Respiratory rate 18 /min Herberth Joana Other [facility] Other 08-17-2023 09:20-0400 SaO2% (BldA) [Mass fraction] 94 % Herberth Joana Other [facility] Other 08-17-2023 09:20-0400 Systolic blood pressure 151 mm[Hg] Herberth Joana Other [facility] Other 03-02-2023 10:00-0400 Body height 165.1 cm Herberth Joana Other [facility] Other 03-02-2023 10:00-0400 Body mass index (BMI) [Ratio] 37.29 kg/m2 Herberth Joana Other [facility] Other 03-02-2023 10:00-0400 Body temperature 98.9 [degF] Herberth Joana Other [facility] Other 03-02-2023 10:00-0400 Body weight 101.65 kg Herberth Joana Other [facility] Other 03-02-2023 10:00-0400 Diastolic blood pressure 76 mm[Hg] Herberth Joana Other [facility] Other 03-02-2023 10:00-0400 Respiratory rate 20 /min Herberth Joana Other [facility] [employer] Other 03-02-2023 10:00-0400 SaO2% (BldA) [Mass fraction] 96 % Herberth Joana Other [facility] Other 03-02-2023 10:00-0400 Systolic blood pressure 136 mm[Hg] Herberth Joana Other [facility] [employer] Other 12-08-2022 09:30-0500 Diastolic blood pressure 59 mm[Hg] MD Shaikh Ohara Work Phone: [facility] 12-08-2022 09:30-0500 Heart rate 55 /min MD Shaikh Ohara Work Phone: [facility] 12-08-2022 09:30-0500 Respiratory rate 16 /min MD Shaikh Ohara Work Phone: [facility] 12-08-2022 09:30-0500 SaO2% (BldA) [Mass fraction] 96 % MD Shaikh Ohara Work Phone: [facility] 12-08-2022 09:30-0500 Systolic blood pressure 112 mm[Hg] MD Shaikh Ohara Work Phone: [facility] 12-08-2022 06:54-0500 Body height 162.56 cm MD Shaikh Ohara Work Phone: [facility] 12-08-2022 06:54-0500 Body temperature 98.2 [degF] MD Shaikh Ohara Work Phone: [facility] 12-08-2022 06:54-0500 Body weight 104.32 kg MD Shaikh Ohara Work Phone: [facility] 08-09-2022 11:00-0400 Body height 165.1 cm Herberth Joana Other [facility] Other 08-09-2022 11:00-0400 Body mass index (BMI) [Ratio] 37.87 kg/m2 Herberth Joana Other [facility] Other 08-09-2022 11:00-0400 Body temperature 97.2 [degF] Herberth Joana Other [facility] Other 08-09-2022 11:00-0400 Body weight 103.24 kg Herberth Joana Other [facility] Other 08-09-2022 11:00-0400 Diastolic blood pressure 88 mm[Hg] Herberth Joana Other [facility] Other 08-09-2022 11:00-0400 Respiratory rate 20 /min Herberth Joana Other [facility] Other 08-09-2022 11:00-0400 SaO2% (BldA) [Mass fraction] 95 % Herberth Joana Other [facility] Other 08-09-2022 11:00-0400 Systolic blood pressure 133 mm[Hg] Herberth Joana Other [facility] Other 11-17-2021 10:40-0500 Body height 165.1 cm Herberth Joana Other [facility] Other 11-17-2021 10:40-0500 Body mass index (BMI) [Ratio] 37.97 kg/m2 Herberth Joana Other [facility] Other 11-17-2021 10:40-0500 Body temperature 97.8 [degF] Herberth Joana Other [facility] Other 11-17-2021 10:40-0500 Body weight 103.51 kg Herberth Joana Other [facility] Other 11-17-2021 10:40-0500 Diastolic blood pressure 70 mm[Hg] Herberth Joana Other [facility] Other 11-17-2021 10:40-0500 Respiratory rate 18 /min Herberth Joana Other [facility] Other 11-17-2021 10:40-0500 SaO2% (BldA) [Mass fraction] 94 % Herberth Joana Other [facility] Other 11-17-2021 10:40-0500 Systolic blood pressure 130 mm[Hg] Herberth Joana Other [facility] Other 08-30-2021 13:15-0400 Body height 165.1 cm Rena Ginty Other [facility] Other 08-30-2021 13:15-0400 Body mass index (BMI) [Ratio] 36.61 kg/m2 Rena Ginty Other [facility] Other 08-30-2021 13:15-0400 Body temperature 98.7 [degF] Rena Ginty Other [facility] Other 08-30-2021 13:15-0400 Body weight 99.79 kg Rena Ginty Other [facility] Other 08-30-2021 13:15-0400 SaO2% (BldA) [Mass fraction] 90 % Rena Hurd Other [facility] Other Encounters Encounter Date Encounter Type Care Provider Facility Start: 07-08-2025 ambulatory Amalia Kat Facility:[facility] Start: 06-18-2025 End: 06-18-2025 Refill Kaylene Owenz SUPPLY CRIB ATTENDANT Work Phone: [facility] Comment on above: Moderate episode of recurrent major depressive disorder (HCC) Start: 06-11-2025 End: 06-11-2025 ambulatory Amalia Kat Facility:[facility] Start: 06-11-2025 End: 06-11-2025 Patient encounter procedure Amalia Stephens [facility] Start: 06-04-2025 End: 06-05-2025 Refill Kaylene Owenz SUPPLY CRIB ATTENDANT Work Phone: [facility] Comment on above: Skin pustule Start: 05-19-2025 End: 05-19-2025 Bamboo flowsheet Kaylene Brianhsuryz SUPPLY CRIB ATTENDANT Work Phone: [facility] Start: 05-19-2025 End: 05-19-2025 Bamboo flowsheet Kaylene Aichholz SUPPLY CRIB ATTENDANT Work Phone: [facility] Start: 05-19-2025 End: 05-19-2025 Telephone encounter Kaylene Rene SUPPLY CRIB ATTENDANT Work Phone: [facility] Start: 05-19-2025 End: 05-19-2025 Office outpatient visit 25 minutes Kaylene Rene SUPPLY CRIB ATTENDANT Work Phone: [facility] Comment on above: Moderate episode of recurrent major depressive disorder (HCC) (Primary Dx); Morbid (severe) obesity due to excess calories (CMS-HCC); Candidiasis of breast; Skin pustule; RLS (restless legs syndrome) Start: 05-19-2025 End: 05-19-2025 ambulatory KAYLENE AICHHOLZ Not Available Start: 05-12-2025 End: 05-12-2025 Refill Kaylene Aichholz SUPPLY CRIB ATTENDANT Work Phone: [facility] Comment on above: Chronic heart failur e with preserved ejection fraction (HCC) (Primary Dx); Edema of both lower extremities Start: 05-12-2025 End: 05-12-2025 ambulatory Jayshree Vargas MD Facility:[facility] Start: 04-30-2025 End: 04-30-2025 Clinisync Result Encounter Generic External Data Provider [facility] External Department Unsolicited Start: 04-30-2025 End: 04-30-2025 Clinisync Result Encounter Generic External Data Provider [facility] External Department Unsolicited Start: 04-29-2025 End: 04-29-2025 Refill Kaylene Aichholz SUPPLY CRIB ATTENDANT Work Phone: [facility] Comment on above: Restless leg syndrom e Start: 04-27-2025 End: 04-28-2025 Refill Kaylene Aichholz SUPPLY CRIB ATTENDANT Work Phone: [facility] Comment on above: Chronic bilateral lo w back pain without sciatica Start: 04-23-2025 End: 04-23-2025 Refill Kaylene Aichholz SUPPLY CRIB ATTENDANT Work Phone: [facility] Comment on above: Moderate episode of recurrent major depressive disorder (HCC) (Primary Dx) Start: 04-09-2025 End: 04-09-2025 Bamboo flowsheet Kaylene Aichholz SUPPLY CRIB ATTENDANT Work Phone: [facility] Start: 04-09-2025 End: 04-09-2025 Bamboo flowsheet Kaylene Aichholz SUPPLY CRIB ATTENDANT Work Phone: [facility] Start: 04-09-2025 End: 04-09-2025 Office outpatient visit 25 minutes Kaylene Rene SUPPLY CRIB ATTENDANT Work Phone: [facility] Comment on above: Moderate episode of recurrent major depressive disorder (CMS/HCC) (Primary Dx); Pulmonary emphysema, unspecified emphysema type (CMS/HCC); Chronic respiratory failure with hypoxia (CMS/HCC); Morbid (severe) obesity due to excess calories (CMS/HCC); Restless leg syndrome Start: 04-09-2025 End: 04-09-2025 ambulatory KAYLENE LÓPEZ Not Available Start: 03-24-2025 End: 03-24-2025 ambulatory MAG BLOUNT Facility:[facility] Start: 03-24-2025 End: 03-24-2025 Patient encounter procedure MAG BLOUNT [facility] Start: 03-10-2025 End: 03-12-2025 Clinisync Result Encounter Generic External Data Provider [facility] External Department Unsolicited Start: 03-10-2025 End: 03-12-2025 Clinisync Result Encounter Generic External Data Provider [facility] External Department Unsolicited Start: 03-03-2025 End: 03-03-2025 Clinisync Result Encounter Kaylene López SUPPLY CRIB ATTENDANT Work Phone: [facility] External Department Unsolicited Start: 03-03-2025 End: 03-03-2025 Clinisync Result Encounter Kaylene López SUPPLY CRIB ATTENDANT Work Phone: [facility] External Department Unsolicited Start: 02-26-2025 End: 02-26-2025 Refill Kaylene López SUPPLY CRIB ATTENDANT Work Phone: [facility] Comment on above: Gastroesophageal ref lux disease without esophagitis Start: 02-17-2025 End: 02-17-2025 Bamboo flowsheet Kaylene López SUPPLY CRIB ATTENDANT Work Phone: [facility] Start: 02-17-2025 End: 02-17-2025 Bamboo flowsheet Kaylene López SUPPLY CRIB ATTENDANT Work Phone: [facility] Start: 02-17-2025 End: 02-17-2025 Office outpatient visit 25 minutes Kaylene López SUPPLY CRIB ATTENDANT Work Phone: [facility] Comment on above: Edema of both lower extremities (Primary Dx); Spinal stenosis, lumbar region without neurogenic claudication; Chronic heart failure with preserved ejection fraction (CMS/HCC); Chronic respiratory failure with hypoxia (CMS/HCC); Severe persistent asthma, uncomplicated (CMS/HCC); Gastroesophageal reflux disease, unspecified whether esophagitis present; Morbid (severe) obesity due to excess calories (CMS/HCC); RLS (restless legs syndrome); Candidiasis Start: 02-17-2025 End: 02-17-2025 ambulatory KAYLENE AICHHOLZ Not Available Start: 01-23-2025 End: 01-23-2025 ambulatory [facility] Start: 01-16-2025 End: 01-16-2025 Office outpatient visit 25 minutes Kaylene López SUPPLY CRIB ATTENDANT Work Phone: [facility] Comment on above: Pneumonia due to inf ectious organism, unspecified laterality, unspecified part of lung (Primary Dx); Chronic respiratory failure with hypoxia (CMS/HCC); Severe persistent asthma, uncomplicated (CMS/HCC); Chronic heart failure with preserved ejection fraction (CMS/HCC); Essential hypertension (CMS/HCC); Other secondary pulmonary hypertension (CMS/HCC); Chronic kidney disease, stage 3a (HCC) (CMS/HCC); Morbid (severe) obesity due to excess calories (CMS/HCC); Screening mammogram for breast cancer; Moderate episode of recurrent major depressive disorder (CMS/HCC) Start: 01-16-2025 End: 01-16-2025 ambulatory KAYLENE AICHHOLZ Not Available Start: 01-15-2025 End: 01-15-2025 Refill Kaylene López SUPPLY CRIB ATTENDANT Work Phone: [facility] Comment on above: Pneumonia due to inf ectious organism, unspecified laterality, unspecified part of lung (Primary Dx) Start: 01-02-2025 End: 01-02-2025 Office outpatient visit 25 minutes Kaylene López SUPPLY CRIB ATTENDANT Work Phone: [facility] Comment on above: Flu-like symptoms (P rimary Dx); Morbid (severe) obesity due to excess calories ([facility]/HCC); Body mass index (BMI) 40.0-44.9, adult ([facility]/HCC); Pulmonary emphysema, unspecified emphysema type ([facility]/HCC); Chronic respiratory failure with hypoxia ([facility]); Essential hypertension ([facility]) Start: 01-02-2025 End: 01-02-2025 ambulatory KAYLENE LÓPEZ Not Available Start: 01-02-2025 End: 01-02-2025 Bamboo flowsheet Kaylene López SUPPLY CRIB ATTENDANT Work Phone: [facility] Start: 01-02-2025 End: 01-04-2025 Bamboo flowsheet Kaylene López SUPPLY CRIB ATTENDANT Work Phone: [facility] Start: 01-02-2025 End: 01-04-2025 Clinisync Result Encounter Generic External Data Provider [facility] External Department Unsolicited Start: 12-17-2024 End: 12-17-2024 Office outpatient visit 15 minutes Jessica Lazo MD Work Phone: [facility] Comment on above: Seborrheic keratosis (Primary Dx); History of SCC (squamous cell carcinoma) of skin; Lentigines Start: 12-17-2024 End: 12-17-2024 ambulatory JESSICA LAZO Not Available Start: 12-17-2024 End: 12-17-2024 Bamboo flowsheet Ramin KING Work Phone: [facility] Start: 12-17-2024 End: 12-17-2024 Bamboo flowsheet Ramin KING Work Phone: [facility] Start: 12-17-2024 End: 12-17-2024 ambulatory RAMIN MAIER Not Available Start: 12-17-2024 End: 12-17-2024 Office outpatient visit 25 minutes Ramin KING Work Phone: [facility] Comment on above: Acute pain of right knee (Primary Dx); History of total right knee replacement; Right hip pain; Arthritis of right hip Start: 12-15-2024 End: 12-16-2024 Refill Aida Reese SUPPLY CRIB ATTENDANT Work Phone: [facility] Comment on [...] Start: 12-05-2024 End: 12-09-2024 Refill Aida Reese SUPPLY CRIB ATTENDANT Work Phone: [facility] Comment on above: Restless leg syndrom e Start: 11-30-2024 End: 12-02-2024 Refill Aida Reese SUPPLY CRIB ATTENDANT Work Phone: [facility] Comment on above: Gastroesophageal ref lux disease without esophagitis Start: 11-28-2024 End: 11-28-2024 Bamboo flowsheet Aida Reese SUPPLY CRIB ATTENDANT Work Phone: [facility] Start: 11-28-2024 End: 11-28-2024 Bamboo flowsheet Aida Reese SUPPLY CRIB ATTENDANT Work Phone: [facility] Start: 11-28-2024 End: 11-28-2024 ambulatory AIDA REESE Not Available Start: 11-28-2024 End: 11-28-2024 Transitional care manage srvc 14 day discharge Aida Reese SUPPLY CRIB ATTENDANT Work Phone: [facility] Comment on above: Pulmonary emphysema, unspecified emphysema type (CMS/HCC) (Primary Dx) Start: 11-12-2024 End: 11-12-2024 Bamboo flowsheet Aida Reese SUPPLY CRIB ATTENDANT Work Phone: [facility] Start: 11-12-2024 End: 11-12-2024 Bamboo flowsheet Aida Reese SUPPLY CRIB ATTENDANT Work Phone: [facility] Start: 11-12-2024 End: 11-12-2024 Office outpatient visit 15 minutes Aida Negronk SUPPLY CRIB ATTENDANT Work Phone: [facility] Comment on above: Chronic obstructive pulmonary disease with acute lower respiratory infection (CMS/HCC) (Primary Dx); Primary HSV infection of mouth Start: 11-12-2024 End: 11-12-2024 ambulatory AIDA NEGRONK Not Available Start: 10-26-2024 End: 10-28-2024 Refill Aida Vidaltrick SUPPLY CRIB ATTENDANT Work Phone: [facility] Comment on above: Moderate episode of recurrent major depressive disorder (CMS/HCC); Restless leg syndrome Start: 10-17-2024 End: 10-17-2024 ambulatory [facility] Start: 10-15-2024 End: 10-15-2024 ambulatory MAG BLOUNT Facility:[facility] Start: 10-15-2024 End: 10-15-2024 Lab Drop off MAG BLOUNT [facility] Start: 10-15-2024 End: 10-15-2024 Refill Aida Vidaltrick SUPPLY CRIB ATTENDANT Work Phone: [facility] Comment on above: Moderate episode of recurrent major depressive disorder (CMS/HCC) Start: 10-15-2024 End: 10-15-2024 ambulatory MAG BLOUNT Facility:[facility] Start: 10-15-2024 End: 10-15-2024 Patient encounter procedure MAG BLOUNT [facility] Start: 10-12-2024 End: 10-14-2024 Refill Aida Negronk SUPPLY CRIB ATTENDANT Work Phone: [facility] Comment on above: Urge incontinence Start: 10-11-2024 End: 10-11-2024 Bamboo flowsheet Jayna Ositoeim PA Work Phone: [facility] Start: 10-11-2024 End: 10-11-2024 Bamboo flowsheet Jayna Ositoeim PA Work Phone: [facility] Start: 10-11-2024 End: 10-11-2024 Patient encounter procedure Jayna Canas PA Work Phone: [facility] Comment on above: Neoplasm of unspecif ied behavior of bone, soft tissue, and skin (Primary Dx) Start: 10-11-2024 End: 10-11-2024 ambulatory JAYNA NORTHEIM Not Available Start: 10-08-2024 ambulatory MAG BLOUNT Facility :[facility] Start: 10-07-2024 End: 10-07-2024 Office outpatient visit 15 minutes Aida Negronk SUPPLY CRIB ATTENDANT Work Phone: [facility] Comment on above: Urge incontinence (P rimary Dx); Morbid obesity with BMI of 40.0-44.9, adult (CMS/HCC); 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; Stage 3a chronic kidney disease (HCC) (CMS/HCC); Chronic respiratory failure with hypoxia (CMS/HCC) Start: 10-07-2024 End: 10-07-2024 ambulatory AIDA REESE Not Available Start: 10-07-2024 End: 10-07-2024 Bamboo flowsheet Adia Reese SUPPLY CRIB ATTENDANT Work Phone: [facility] Start: 10-07-2024 End: 10-07-2024 Bamboo flowsheet Aida Reese SUPPLY CRIB ATTENDANT Work Phone: [facility] Start: 09-25-2024 End: 09-26-2024 Refill Aida Mary Ann SUPPLY CRIB ATTENDANT Work Phone: [facility] Comment on above: Restless leg syndrom e Start: 09-12-2024 End: 09-12-2024 ambulatory Aida Negronk SUPPLY CRIB ATTENDANT-C Work Phone: [facility] Work Phone: Start: 09-12-2024 End: 09-12-2024 Departed Referred Aida Reese SUPPLY CRIB ATTENDANT-C Work Phone: [facility] [place] Start: 09-10-2024 End: 09-10-2024 Orders Only Aida Reese SUPPLY CRIB ATTENDANT Work Phone: [facility] Comment on above: Vaginal guero (Aleja joy Dx) Start: 09-05-2024 End: 09-05-2024 Departed Referred Aida Reese SUPPLY CRIB ATTENDANT-C Work Phone: [facility] [employer] Work Phone: Start: 09-05-2024 End: 09-05-2024 Patient encounter procedure SUPPLY CRIB ATTENDANT-C Aida Reese Work Phone: [facility] [employer] Work Phone: Start: 09-05-2024 End: 09-05-2024 ambulatory SUPPLY CRIB ATTENDANT-C Aida Vidaltrick Work Phone: [facility] Work Phone: Start: 09-03-2024 End: 09-03-2024 Refill Rukhsana Rutherford MA [facility] Comment on above: Gastroesophageal ref lux disease without esophagitis Start: 08-19-2024 End: 08-19-2024 Bamboo flowsheet Aida Reese SUPPLY CRIB ATTENDANT Work Phone: [facility] Start: 08-19-2024 End: 08-19-2024 Bamboo flowsheet Aida Mary Ann SUPPLY CRIB ATTENDANT Work Phone: [facility] Start: 08-19-2024 End: 08-19-2024 Transitional care manage srvc 7 day discharge Aida Reese SUPPLY CRIB ATTENDANT Work Phone: [facility] Comment on [...] Start: 08-12-2024 End: 08-27-2024 Refill Aida Reese SUPPLY CRIB ATTENDANT Work Phone: [facility] Comment on above: Restless leg syndrom e Start: 08-08-2024 End: 08-12-2024 Non-patient / Non-visit SUPPLY CRIB ATTENDANT-C Aida Reese Work Phone: [facility] Work Phone: Start: 08-08-2024 End: [...] 07-15-2024 End: 07-15-2024 ambulatory Jayshree Vargas MD Facility:[facility] Start: 07-12-2024 End: 07-12-2024 Clinisync Result Encounter Aida Reese SUPPLY CRIB ATTENDANT Work Phone: [facility] External Department Unsolicited Start: 07-12-2024 End: 07-12-2024 Clinisync Result Encounter Aida Reese SUPPLY CRIB ATTENDANT Work Phone: [facility] External Department Unsolicited Start: 07-11-2024 End: 07-11-2024 Bamboo flowsheet Aida Reese SUPPLY CRIB ATTENDANT Work Phone: [facility] Start: 07-11-2024 End: 07-11-2024 Bamboo flowsheet Aida Reese SUPPLY CRIB ATTENDANT Work Phone: [facility] Start: 07-11-2024 End: 07-11-2024 ambulatory [facility] Start: 07-11-2024 End: 07-11-2024 Office outpatient visit 25 minutes Aida Reese SUPPLY CRIB ATTENDANT Work Phone: [facility] Comment on above: Benign essential HTN (CMS/HCC) (Primary Dx); Chronic heart failure with preserved ejection fraction (CMS/HCC); Severe persistent asthma without complication (CMS/HCC); Moderate mixed hyperlipidemia not requiring statin therapy (CMS/HCC); Morbid obesity with BMI of 40.0-44.9, adult (CMS/HCC) Start: 07-11-2024 End: 07-11-2024 ambulatory AIDA REESE Not Available Start: 07-02-2024 End: 07-02-2024 ambulatory [facility] Start: 06-29-2024 Non-patient / Non-visit SUPPLY CRIB ATTENDANT-C B chase Reese Work Phone: [facility] Work Phone: Start: 06-28-2024 End: 07-02-2024 Clinisync Result Encounter Generic External Data Provider [facility] External Department Unsolicited Start: 06-28-2024 End: 07-02-2024 Clinisync Result Encounter Generic External Data Provider [facility] External Department Unsolicited Start: 06-25-2024 ambulatory [facility] Start: 06-24-2024 End: 06-24-2024 ambulatory Jayshree Vargas MD Facility:[facility] Start: 06-21-2024 End: 06-21-2024 ambulatory [facility] Start: 06-12-2024 End: 06-12-2024 ambulatory AIDA REESE Not Available Start: 05-13-2024 End: 05-13-2024 ambulatory [facility] Start: 03-14-2024 End: 03-14-2024 ambulatory Steph Collier Work Phone: [facility] Work Phone: Start: 03-14-2024 End: 03-14-2024 Patient encounter procedure Steph Collier Work Phone: On [facility] Work Phone: Start: 03-06-2024 Non-patient / Non-visit Steph Collier Work Phone: [facility] Work Phone: Start: 11-06-2023 Patient encounter procedure Generic Provider [facility] Start: 09-07-2023 End: 09-07-2023 ambulatory Herberth Bernard Other [facility] [employer] Other Start: 09-07-2023 Telephone encounter Herberth Joana [facility] Start: 08-28-2023 End: 08-28-2023 ambulatory Herberth Joana Other [facility] Other Start: 08-28-2023 Telephone encounter Herberth Joana [facility] Start: 08-17-2023 End: 08-17-2023 ambulatory Herberth Joana Other [facility] Other Start: 08-17-2023 Office outpatient vi sit 25 minutes Herberth Joana [facility] Start: 04-04-2023 End: 04-04-2023 ambulatory SHAIKH Dimitry OHARA Facility:[facility] Start: 03-24-2023 End: 03-25-[address] STEPH GRANADOS Facility:[facility] Start: 03-02-2023 End: 03-02-2023 ambulatory Herberth Joana Other [facility] Other Start: 03-02-2023 Office outpatient vi sit 25 minutes Herberth Joana [facility] Start: 02-25-2023 End: 02-26-2023 ambulatory HERBERTH JOANA Facility:[facility] Start: 02-22-2023 End: 02-23-2023 ambulatory BO MCCLAIN . Facility:[facility] Start: 12-15-2022 End: 12-16-[address] JACK HALL . Facility:[facility] Start: 12-08-2022 End: 12-08-2022 Admission to same day surgery center MD Shaikh Ohara Work Phone: [facility] Work Phone: Start: 12-08-2022 End: 12-08-2022 ambulatory MD Shaikh Ohara Work Phone: [facility] Work Phone: Start: 11-11-2022 End: 11-11-[address] JACK HALL . Facility:[facility] Start: 11-09-2022 End: 11-09-2022 ambulatory Azkatherine Gonzalezs Other [facility] Other Start: 11-09-2022 Telephone encounter Azkatherine Gonzalezs [facility] Start: 08-19-2022 End: 08-20-2022 ambulatory HERBERTH JOANA Facility:[facility] Start: 08-09-2022 End: 08-09-2022 ambulatory Herberth Joana Other [facility] Other Start: 08-09-2022 Office outpatient vi sit 10 minutes Herberth Joana [facility] Start: 08-09-2022 Telephone encounter Herberth Joana [facility] Start: 08-05-2022 Telephone encounter Herberth Joana [facility] Start: 08-05-2022 End: 08-06-2022 ambulatory HERBERTH JOANA [place] [employer] Other Start: 07-08-2022 End: 07-08-2022 ambulatory Gato Domingo Other [facility] Other Start: 07-08-2022 Telephone encounter Gato Cesar ck [facility] Start: 07-05-2022 End: 07-06-2022 ambulatory MESSER H FAWWAD Facility:[facility] Start: 06-08-2022 End: 06-09-2022 ambulatory MESSER H FAWWAD Facility:[facility] Start: 06-07-2022 End: 06-07-2022 ambulatory MESSER H FAWWAD Facility:[facility] Start: 01-24-2022 End: 01-25-2022 ambulatory PHYSICIAN UNKNOWN Facility:[facility] Start: 11-17-2021 End: 11-17-2021 ambulatory Herberth Joana Other [facility] Other Start: 11-17-2021 Office outpatient vi sit 15 minutes Herberth Joana [facility] Start: 08-30-2021 Office outpatient vi sit 15 minutes Rean Ginty [facility] Start: 09-11-2020 End: 09-11-2020 Chart abstracting Miguelito Buck Work Phone: Hematology/Oncology Start: 09-11-2020 End: 09-11-2020 Patient encounter procedure External Provider [facility] Start: 09-11-2020 Results Only External Provider [facility] Start: 09-30-2019 End: 09-30-2019 Patient encounter procedure [facility] [place] Start: 07-07-2017 End: 07-07-2017 [facility] Start: 05-24-2004 Evaluation and management of inpatient [facility] [place] Start: 04-26-2004 Evaluation and management of inpatient [facility] [place] Procedures Date Procedure Procedure Detail Performing Clinician Start: 04-30-2025 Radex hip unilateral with pelvis 2-3 views Generic External Data Provider Start: 03-10-2025 BLOOD CULTURE 2 Generic External Data Provider Start: 03-10-2025 BLOOD CULTURE 1 Generic External Data Provider Start: 03-03-2025 End: 03-03-2025 Screening mammography bi 2-view breast inc cad Kaylene López SUPPLY CRIB ATTENDANT Work Phone: Start: 01-02-2025 BLOOD CULTURE 1 Generic External Data Provider Start: 01-02-2025 STATUS COVID-19/FLU Elba López NP Work Phone: Start: 12-17-2024 End: 12-17-2024 Radex [...] ALL CBC WITH AUTO DIFF Aida Reese SUPPLY CRIB ATTENDANT Work Phone: Start: 06-28-2024 BLOOD CULTURE 2 Generic External Data Provider Start: 06-28-2024 BLOOD CULTURE 1 Generic External Data Provider Start: 02-29-2024 Mammography Generic Pr ovider Start: 12-08-2022 End: 12-08-2022 Colonoscopy MD Shaikh Ohara Work Phone: Start: 09-11-2020 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 Corrosion Control Technician al Provider Start: 09-11-2020 EXTERNAL LAB External [...] 12-08-2032 Screening for malignant neoplasm of colon [facility] Start: 12-15-2026 End: 12-15-2026 Patient encounter procedure [facility] Start: 04-09-2026 Urine screening for protein Diabetes: Urine Protein Screening [facility] Comment on above: Postponed from 1975 (Other Medical Reasons) Start: 03-03-2026 Screening for malignant neoplasm of breast Mammogram [facility] Start: 07-17-2025 End: 07-17-2025 Patient encounter procedure 07/17/2025 9:00 AM EDT Office Visit [facility] [address] [place] [id number] Kaylene López NP [address] [place] [id number] [facility] Start: 07-16-2025 End: 07-16-2025 Patient encounter procedure 07/16/2025 2:45 PM EDT Office Visit [facility] [address] [place] [id number] Jessica Lazo MD [address] [place] [address] [facility] Start: 07-07-2025 Influenza vaccination Influenza Vaccine (#1) [facility] Start: 06-17-2025 End: 06-17-2025 Patient encounter procedure [facility] Start: 05-19-2025 End: 05-19-2025 Patient encounter procedure [facility] Comment on above: Moderate episode of recurrent major depr essive disorder (HCC) (Primary Dx); Morbid (severe) obesity due to excess calories ([facility]) Start: 04-09-2025 End: 04-09-2025 Patient encounter procedure 04/09/2025 11:00 AM EDT Office Visit [facility] [address] [place] [phone] Kaylene López NP [address] [place] [address] Pulmonary emphysema, unspecified emphysema type (CMS/HCC) (Primary Dx); Chronic respiratory failure with hypoxia (CMS/HCC); Morbid (severe) obesity due to excess calories (CMS/HCC) [facility] Comment on above: Pulmonary emphysema, unspecified emphyse ma type (CMS/HCC) (Primary Dx); Chronic respiratory failure with hypoxia (CMS/HCC); Morbid (severe) obesity due to excess calories (CMS/HCC) Start: 03-26-2025 End: 03-26-2025 Patient encounter procedure 03/26/2025 11:30 AM EDT Office Visit [facility] [address] [place] [address] Kaylene López, RIKKI [address] [place] [phone] [facility] Start: 02-28-2025 Screening for malignant neoplasm of breast Mammogram [facility] Start: 02-17-2025 End: 02-17-2025 Patient encounter procedure [facility] Comment on above: Spinal stenosis, lumbar region without n eurogenic claudication (Primary Dx); Chronic heart failure with preserved ejection fraction (CMS/HCC); Chronic respiratory failure with hypoxia (CMS/HCC); Severe persistent asthma, uncomplicated (CMS/HCC); Gastroesophageal reflux disease, unspecified whether esophagitis present; Morbid (severe) obesity due to excess calories (CMS/HCC) Start: 02-16-2025 End: 03-18-2026 MG Breast - bilateral Screening Bilateral screening mammogram Imaging Routine Screening mammogram for breast cancer Expected: 02/16/2025 (Approximate), Expires: 03/18/2026 [facility] Work Phone: Comment on above: Expected: 02/16/2025 (Approximate), Expi res: 03/18/2026 Start: 01-16-2025 End: 01-16-2025 Patient encounter procedure 01/16/2025 10:00 AM EDT Office Visit [facility] [address] [place] [address] Kaylene López, SUPPLY CRIB ATTENDANT [address] [place] [phone] [facility] Start: 01-09-2025 End: 01-09-2025 Patient encounter procedure 01/09/2025 1:40 PM EST Office Visit [facility] [address] [place] [address] Kaylene López, SUPPLY CRIB ATTENDANT [address] [place] [phone] [facility] Start: 01-09-2025 End: 01-09-2025 Patient encounter procedure 01/09/2025 8:30 AM EST [facility] [address] [place] [address] Aida Reese NP [address] [place] [address] [facility] Start: 01-02-2025 End: 01-02-2025 Patient encounter procedure 01/02/2025 2:40 PM EST Office Visit [facility] [address] [place] [address] Kaylene López, SUPPLY CRIB ATTENDANT [address] [place] [phone] Pulmonary emphysema, unspecified emphysema type (CMS/HCC) (Primary Dx); Chronic kidney disease, stage 3a (HCC) (CMS/HCC); Severe persistent asthma, uncomplicated (CMS/HCC); Morbid (severe) obesity due to excess calories (CMS/HCC); Body mass index (BMI) 40.0-44.9, adult (CMS/HCC); Chronic respiratory failure with hypoxia (CMS/HCC); Essential hypertension (CMS/HCC); Gastroesophageal reflux disease, unspecified whether esophagitis present; Malignant neoplasm of rectosigmoid junction (CMS/HCC); Urge incontinence [facility] Comment on above: Pulmonary emphysema, unspecified emphyse [...] 12-13-2024 End: 12-13-2024 Patient encounter procedure [facility] Comment on above: Arrived Start: 12-09-2024 End: 12-09-2024 Patient encounter procedure 12/09/2024 2:30 PM EST Office Visit [facility] [address] [place] [phone] Aida Reese NP [address] [place] [address] [facility] Start: 11-20-2024 End: 11-20-2024 Patient encounter procedure [facility] Start: 11-15-2024 End: 11-15-2024 Patient encounter procedure 11/15/2024 10:30 AM EST Office Visit [facility] [address] [place] [address] Jayna Goode PA [address] [place] [address] [facility] Start: 11-12-2024 End: 11-12-2025 XR Chest 2 Views XR chest 2 views Imaging Routine Chronic obstructive pulmonary disease with acute lower respiratory infection (CMS/HCC) Expected: 11/12/2024, Expires: 11/12/2025 [facility] Work Phone: Comment on above: Expected: 11/12/2024, Expires: Start: 11-12-2024 End: 11-12-2024 Patient encounter procedure 11/12/2024 10:30 AM EST Office Visit [facility] [address] [place] [phone] Aida Reese NP [address] [place] [address] Arrived [facility] Comment on above: Arrived Start: 10-11-2024 End: 10-11-2024 Patient encounter procedure 10/11/2024 8:50 AM EST Office Visit [facility] [address] [place] [address] Jayna Goode PA [address] [place] [address] 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 [facility] Comment on above: 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 Start: 10-09-2024 End: 10-09-2024 Patient encounter procedure 10/09/2024 9:00 AM EST [facility] [address] [place] [phone] Aida Reese NP [address] [place] [address] [facility] Start: 10-07-2024 End: 10-07-2024 Patient encounter procedure 10/07/2024 2:30 PM EST Office Visit [facility] [address] [place] [address] Aida Reese NP [address] [facility] [place] [phone] Arrived [facility] Comment on above: Arrived Start: 09-12-2024 Phacoemulsification of cataract with intraocular lens implantation OR Cataract PHACO W/IOL/Vitrectomy (Left) [facility] Start: 08-19-2024 End: 08-19-2025 Clostridioides difficile toxin A+B tcdA+tcdB genes [Presence] in Stool by KAYLEE with probe detection Clostridium difficile,EIA Microbiology Routine Diarrhea, unspecified type Expected: 08/19/2024 (Approximate), Expires: 08/19/2025 [facility] Work Phone: Comment on above: Expected: 08/19/2024 (Approximate), Expi res: 08/19/2025 Start: 08-19-2024 End: 08-19-2024 [facility] Comment on above: Arrived Start: 07-11-2024 End: 07-11-2025 CBC W Auto Differential panel - Blood CBC and differential Lab Routine Benign essential HTN (CMS/HCC) Chronic heart failure with preserved ejection fraction (CMS/HCC) Moderate mixed hyperlipidemia not requiring statin therapy (CMS/HCC) Morbid obesity with BMI of 40.0-44.9, adult (CMS/HCC) Expected: 07/11/2024 (Approximate), Expires: 07/11/2025 [facility] Comment on above: Expected: 07/11/2024 (Approximate), Expi res: 07/11/2025 Start: 07-11-2024 End: 07-11-2025 Comprehensive metabolic 2000 panel - Serum or Plasma Comprehensive metabolic panel Lab Routine Benign essential HTN (CMS/HCC) Chronic heart failure with preserved ejection fraction (CMS/HCC) Moderate mixed hyperlipidemia not requiring statin therapy (CMS/HCC) Morbid obesity with BMI of 40.0-44.9, adult (CMS/HCC) Expected: 07/11/2024 (Approximate), Expires: 07/11/2025 [facility] Comment on above: Expected: 07/11/2024 (Approximate), Expi res: 07/11/2025 Start: 07-11-2024 End: 07-11-2025 Lipid 1996 panel - Serum or Plasma Lipid panel Lab Routine Moderate mixed hyperlipidemia not requiring statin therapy (CMS/HCC) Expected: 07/11/2024 (Approximate), Expires: 07/11/2025 [facility] Comment on above: Expected: 07/11/2024 (Approximate), Expi res: 07/11/2025 Start: 07-11-2024 End: 07-11-2025 Microalbumin/Creatinine panel in random Urine Microalbumin / creatinine urine ratio Lab Routine Benign essential HTN (CMS/HCC) Expected: 07/11/2024 (Approximate), Expires: 07/11/2025 [facility] Work Phone: Comment on above: Expected: 07/11/2024 (Approximate), Expi res: 07/11/2025 Start: 07-11-2024 End: 07-11-2024 Patient encounter procedure [facility] Comment on above: Benign essential HTN (CMS/HCC) (Primary Dx); Chronic heart failure with preserved ejection fraction (CMS/HCC); Severe persistent asthma without complication (CMS/HCC) Start: 07-07-2024 Influenza vaccination Influenza Vaccine (#1) [facility] Start: 12-08-2022 [facility] Start: 07-07-2020 Influenza vaccination INFLUENZA (#1) [facility] Start: 2006 SHINGRIX VACCINE (1 of 2) SHINGRIX VACCINE (1 of 2) [facility] Start: 2006 Tuberculosis screening COLORECTAL CANCER SCREENING,SEE MODIFIER [facility] Start: 2001 DIABETES SCREEN DIABETES SCREEN [facility] Start: 2001 LIPID SCREEN LIPID SCREEN [facility] Start: 1996 Mammography MAMMOGRAM [facility] Start: 1986 HPV TESTING HPV TESTING [facility] Start: 1977 PAP TESTING PAP TESTING [facility] Start: 1975 Urine microalbumin profile DTAP,TDAP,TD (1 - Tdap) [facility] Start: 1975 Urine screening for protein Diabetes: Urine Protein Screening [facility] Start: 1974 HEPATITIS C SCREENING HEPATITIS C SCREENING [facility] Start: 1974 HIV SCREENING HIV SCREENING [facility] Start: 1966 Glaucoma screening Diabetes: Retinopathy Screening [facility] Start: 1956 Hemoglobin A1c measurement Diabetes: Hemoglobin A1C [facility] Start: 1956 Screening for malignant neoplasm of colon [facility] BLOOD CULTURE 1 BLOOD CULTURE 1 Lab Routine 08/08/2024 8:[address] [facility] BLOOD CULTURE 1 BLOOD CULTURE 1 Lab Routine 06/28/2024 8:[address] [facility] BLOOD CULTURE 1 BLOOD CULTURE 1 Lab Routine 01/02/2025 4:[address] [facility] BLOOD CULTURE 1 BLOOD CULTURE 1 Lab Routine 03/10/2025 10:[address] [facility] BLOOD CULTURE 2 BLOOD CULTURE 2 Lab Routine 08/08/2024 8:[address] [facility] BLOOD CULTURE 2 BLOOD CULTURE 2 Lab Routine 06/28/2024 8:[address] [facility] BLOOD CULTURE 2 BLOOD CULTURE 2 Lab Routine 03/10/2025 10:[address] [facility] Dermatopathology exam Dermatopat hology exam Pathology and Cytology Timed Neoplasm of unspecified behavior of bone, soft tissue, and skin Release Upon Ordering for 1 Occurrences starting 10/11/2024 [facility] Work Phone: Comment on above: Release Upon Ordering for 1 Occurrences starting 10/11/2024 LOWER RESPIRATORY CULTURE LOWER RESPIRATORY CULTURE Lab Routine 08/12/2024 9:[address] [facility] Work Phone: Patient Education Colon Polypect shahram Hemorrhoids (DC) Diverticulosis (DC) [facility] Work Phone: [facility] Immunizations Immunization Date Immunization Notes Care Provider [facility] 09-06-2024 influenza, high dose seasonal, preservative-free Kaylene López SUPPLY CRIB ATTENDANT Work Phone: [facility] 09-06-2024 influenza virus vaccine, unspecified formulation Aida Reese SUPPLY CRIB ATTENDANT Work Phone: [facility] 08-26-2023 Influenza, High-dose Seasonal, Quadrivalent, Preservative Free Generic Provider [facility] 08-26-2023 influenza virus vaccine, unspecified formulation Generic Provider [facility] 08-18-2023 RSV, recombinant, protein subunit RSVpreF, adjuvant reconstitu, 120mcg/0.5mL, PF (Arexvy) Generic Provider [facility] 08-09-2023 Pneumococcal Conjuga te PCV 20 Generic Provider [facility] 11-01-2022 zoster vaccine recombinant Generic Provider [facility] 08-27-2022 zoster vaccine recombinant Generic Provider [facility] 08-04-2022 influenza virus vaccine, unspecified formulation MAG BLOUNT [facility] 08-04-2022 Influenza, High-dose Seasonal, Quadrivalent, Preservative Free Generic Provider [facility] 08-04-2022 SARS-CoV-2 (COVID-19 ) [id number] MAG BLOUNT [facility] 03-25-2022 SARS-CoV-2 (COVID-19 ) mRNA-1273 vaccine MAG BLOUNT [facility] 09-06-2021 SARS-CoV-2 (COVID-19 ) mRNA-1273 vaccine MAG BLOUNT [facility] 08-06-2021 influenza virus vaccine, unspecified formulation MAG BLOUNT [facility] 08-06-2021 Influenza, High-dose Seasonal, Quadrivalent, Preservative Free Generic Provider [facility] 02-04-2021 SARS-CoV-2 (COVID-19 ) mRNA-1273 vaccine MAG BLOUNT [facility] Comment on above: Result Comment: 2024: [id number] 01-07-2021 SARS-CoV-2 (COVID-19 ) mRNA-1273 vaccine MAG BLOUNT [facility] Comment on above: Result Comment: 2024: [id number] 08-07-2020 influenza virus vaccine, unspecified formulation MAG BLOUNT [facility] 08-07-2020 influenza, injectabl e, quadrivalent, preservative free Generic Provider ELIZABETH MASON INF[facility]MAR[facility] 08-09-2019 influenza virus vaccine, unspecified formulation MAG BLOUNT [facility] 08-09-2019 influenza, injectabl e, quadrivalent, preservative free Generic Provider [facility] 10-19-2018 pneumococcal polysaccharide vaccine, [address] [facility] 08-08-2018 influenza virus vaccine, unspecified formulation MAG BLOUNT [facility] 08-08-2018 influenza, injectabl e, quadrivalent, preservative free Generic Provider [facility] 07-18-2018 Depo-Medrol 40 mg Rena Gint y Other alaTest Other 01-31-2018 Depo-Medrol 40 mg Rena Gint y Other [facility]Test Other 08-10-2017 influenza virus vaccine, unspecified formulation MAG BLOUNT [facility] 08-10-2017 influenza, injectabl e, quadrivalent, preservative free Generic Provider ELIZABETH MASON [facility] 08-09-2017 influenza virus vaccine, split virus (incl. purified surface antigen) Generic Provider ELIZABETH MASON [facility] 08-09-2017 influenza virus vaccine, unspecified formulation Steph Collier Work Phone: [facility] 08-09-2017 influenza, seasonal, injectable, preservative free Rena Ginty Other alaTest Other 09-02-2009 novel [id number], preservative-free, injectable Generic Provider [facility] Healthcare Payers Date Payer Category Payer Medicare [id number] 2024 Medicaid [id number] 2024 Medicaid [id number] 2024 Medicare [id number] 2024 Private Health Insurance [id number] 2024 Medicare [id number] 2023 Medicare (Managed Care) 1.2. [id number] 2022 Unknown 2021 Medicare [id number] 2019 Medicaid [place] [id number] 2019-Present Medicaid [id number] 2017 Medicare [id number] .[id number] 2016 Medicare MEDICARE MEDICAR E A AND B [id number] 2016-Present [place] Medicare [id number] 1959 Unknown [id number] 1956 Unknown [id number] 2.16.840.1.459243.3.579.2.6 47 1956 Unknown [id number] 2.16.840.1.247449.3.579.2.5 93 1956 Unknown [id number] 2.16.840.1.524501.3.579.2.5 93 1956 Unknown [id number] 2.16.840.1.004312.3.579.2.5 93 1956 Unknown [id number] 2.16.840.1.012114.3.579.2.5 93 1956 Unknown [id number] 2.16.840.1.882127.3.579.2.5 93 1956 Unknown [id number] 2.16.840.1.795842.3.579.2.5 93 1956 Unknown [id number] 2.16.840.1.998703.3.579.2.5 93 1956 Unknown [id number] 2.16.840.1.484241.3.579.2.5 93 1956 Unknown [id number] 2.16.840.1.092950.3.579.2.5 93 1956 Unknown [id number] 2.16.840.1.187291.3.579.2.5 93 1956 Unknown [id number] 2.16.840.1.341446.3.579.2.5 93 1956 Unknown [id number] 2.16.840.1.025736.3.579.2.7 1956 Unknown [id number] 2.16.840.1.150004.3.579.2.7 1956 Unknown [id number] 2.16.840.1.150832.3.579.2.7 1956 Unknown [id number] 2.16.840.1.518831.3.579.2.1 259 1956 Unknown [id number] 2.16.840.1.448471.3.579.2.1 259 1956 Unknown [id number] 2.16.840.1.485893.3.579.2.1 259 1956 Unknown [id number] 2.16.840.1.660737.3.579.2.1 259 1956 Unknown [id number] 2.16.840.1.840141.3.579.2.1 259 1956 Unknown [id number] 2.16.840.1.135651.3.579.2.1 259 1956 Unknown [id number] 2.16.840.1.221919.3.579.2.1 259 1956 Unknown [id number] 2.16.840.1.598737.3.579.2.1 259 1956 Unknown [id number] 2.16.840.1.216866.3.579.2.1 259 1956 Unknown [id number] 2.16.840.1.736372.3.579.2.1 259 1956 Unknown [id number] 2.16.840.1.503455.3.579.2.1 259 1956 Unknown [id number] 2.16.840.1.609948.3.579.2.1 259 1956 Unknown [id number] 2.16.840.1.198564.3.579.2.1 259 1956 Unknown [id number] 2.16.840.1.411771.3.579.2.1 259 1956 Unknown [id number] 2.16.840.1.502168.3.579.2.1 259 1956 Unknown [id number] 2.16.840.1.585105.3.579.2.1 259 1956 Unknown [id number] 2.16.840.1.453529.3.579.2.1 259 1956 Unknown [id number] 2.16.840.1.109421.3.579.2.1 96 1956 Unknown [id number] 2.16.840.1.568702.3.579.2.1 96 1956 Unknown [id number] 2.16.840.1.843089.3.579.2.1 96 1956 Unknown [id number] 2.16.840.1.739786.3.579.2.7 27 1956 Unknown [id number] 2.16.840.1.703797.3.579.2.7 27 Medicare [id number] Self-pay Self Pay [id number] Unknown [id number] Social History Date Type Detail Facility Tobacco smoking stat us [facility] Unknown if ever smoked [facility] Start: 1955 Sex Assigned At Female F [facility] Start: 09-11-2020 End: 12-05-2023 Tobacco smoking status NHIS Never smoker [facility] Start: 09-11-2020 End: 12-05-2023 Tobacco use and exposure Never used [facility] Start: 09-11-2020 End: 05-19-2025 Alcohol intake Lifetime non-drinker (finding) [facility] Start: 09-11-2020 History SDOH Alcohol Frequency 1 [facility] Start: 1955 Sex Assigned At Not on file C [facility] Start: 10-26-2023 End: 11-25-2024 Sex Assigned At [...] 4 cups per day [facility] Start: 02-17-2010 End: 11-13-2024 Sex Female (finding) [facility] How hard is it for y ou to pay for the very basics like food, housing, medical care, and heating Somewhat hard [facility] Do you feel stress - tense, restless, nervous, or anxious, or unable to sleep at night because your mind is troubled all the time - these days [OSQ] Only a little [facility] Sexual Orientation [facility] NEGATED: Highlighted rowStart: NINF History of tobacco use Passive smoker [facility] Goals Date Patient Goal Desired Activity /State Personal health goal Functional Status Date Assessment Result Facility 03-24-2025 Functional Status N/A [facility] 10-15-2024 Functional Status N/A [facility] Clinical Notes 08-30-2021 to 05-19-2025 Telephone Encounter - Kaylene López NP - 05/19/2025 9:26 AM EDTTelephone Encounter - Kaylene López NP - 05/19/2025 9:26 AM EDTHKATE BACK - 05/19/2025 9:00 AM EDTPatient Instructions Note Date & Type Note Facility 05-19-2025 Telephone encounter Note Call patient to let her know a couple over the counter options for excoriation around perineal area: Jeanne Antifungal: moisture barrier anti fungal cream (not sure if [facility] it, but you can order on amazon, also can check about [facility]?) They also make another option when NO redness /excoriation is Jeanne Protect moisture barrier cream. Also a different option is Calmoseptine (different than Calamine lotion!!) This is thick and pink colored, so only a thin layer, and it may stain undergarments. This I also believe she can get at [facility] over the counter so she could try those, if no help let me know LESLIE [facility] 05-19-2025 Miscellaneous Notes Call patient to let her know a couple over the counter options for excoriation around perineal area: Jeanne Antifungal: moisture barrier anti fungal cream (not sure if [facility] it, but you can order on amazon, also can check about [facility]?) They also make another option when NO redness /excoriation is Jeanne Protect moisture barrier cream. Also a different option is Calmoseptine (different than Calamine lotion!!) This is thick and pink colored, so only a thin layer, and it may stain undergarments. This I also believe she can get at [facility] over the counter so she could try those, if no help let me know LESLIE documented in this encounter [facility] 05-19-2025 History of Present illness Narrative Yeast infection- under both breast (just started) Yeast infection and sores on bottom due to frequent incontinence Pt has been using vaginal ich cream that helps with the itching but is not protecting her from skin break down- she's had it for almost 2 months Fluid filled sores randomly on body. Very sob-02 at 3L Images from the original note were not included. Diana Champion is a 69 y.o. female presents with chief complaint of COPD HPI: Here for a recheck of her depression: since last appt added wellbutrin feels this is helping her depression would like to continue both Also gets random pustules to arms and legs. Will get pus out of them,no pain, no itch, not sure what causes them Yeast under bilat breast area needs cream Also a lot of excoriation in perineal and groin area of urine incont, wears pad, and has constant urine leakage, worse with cough and standing Sees urology of urine SUBJECTIVE: MEDICATIONS: Current Outpatient Medications Medication Instructions albuterol HFA 90 mcg/act inhaler 2 puffs, Every 4 hours PRN albuterol 2.5 mg, Every 6 hours PRN baclofen (LIORESAL) 10 mg, Oral, 3 times daily Breztri Aerosphere 160-9-4.8 MCG/ACT aerosol Every 12 hours buPROPion XL (WELLBUTRIN XL) 150 mg, Oral, Every morning, Do not crush, chew, or split. Ensifentrine (Ohtuvayre) 3 MG/2.5ML suspension Every 12 hours ferrous sulfate 325 mg, Daily with breakfast fluticasone (Flonase) 50 MCG/ACT nasal spray 2 sprays, Daily furosemide (LASIX) 20 mg, Oral, Daily guaiFENesin (MUCINEX) 1,200 mg, 2 times daily latanoprost (Xalatan) 0.005 % ophthalmic solution INSTILL 1 DROP INTO EACH EYE AT BEDTIME MAGnesium-Oxide 400 mg, Daily montelukast (SINGULAIR) 10 mg, Daily Multiple Vitamin (multivitamin) tablet 1 tablet, Daily omeprazole (PRILOSEC) 20 mg, Oral, Every 12 hours PARoxetine (PAXIL) 40 mg, Oral, Every morning pramipexole (MIRAPEX) 0.25 mg, Oral, Nightly PRN pregabalin (LYRICA) 75 mg, Oral, 2 times daily sodium chloride 0.9 % nebulizer solution 3 mL, 2 times daily traZODone (DESYREL) 100 mg, Oral, Nightly, TAKE 1 TABLET BY MOUTH AT BEDTIME trospium (SANCTURA XR) 60 mg, Daily ALLERGIES: Allergies Allergen Reactions Fentanyl Other Reaction(s): Hallucinating Vancomycin Unknown REVIEW OF SYMPTOMS: Review of Systems Constitutional: Negative for appetite change, chills and fever. HENT: Negative for congestion, ear pain and sore throat. Eyes: Negative for pain, discharge, redness and visual disturbance. Respiratory: Positive for cough, shortness of breath and wheezing. Cardiovascular: Negative for chest pain, palpitations and leg swelling. Gastrointestinal: Negative for abdominal pain, blood in stool, constipation, diarrhea, nausea and vomiting. Genitourinary: Negative for difficulty urinating, dysuria and frequency. Urine leakage Musculoskeletal: Negative for arthralgias, back pain, joint swelling and myalgias. Skin: Positive for color change and wound. Negative for rash. Neurological: Negative for dizziness, tremors, seizures, syncope and headaches. Psychiatric/Behavioral: Negative for behavioral problems, self-injury and suicidal ideas. The patient is not nervous/anxious. Hematological: Does not bruise/bleed easily. Endocrine: Negative for polydipsia, polyphagia and polyuria. Allergic/Immunologic: Negative for environmental allergies and food allergies. PAST MEDICAL HISTORY Past Medical History: Diagnosis Date Alcohol screening Arthritis Asthma ([facility]) At moderate risk for fall Benign essential HTN Breast cancer screening by mammogram Chronic back pain greater than 3 months duration Chronic heart failure with preserved ejection fraction (HCC) Chronic kidney disease, stage III (moderate) [place] Chronic obstructive pulmonary disease (COPD) ([facility]) Colon cancer (HCC) Colorectal cancer ([facility]) Contact w and exposure to oth viral communicable diseases COPD exacerbation ([facility]) Coronary artery disease Depression Emphysema, unspecified ([facility]) Encounter for gynecological examination (general) (routine) without abnormal findings Essential (primary) hypertension Exposure to STD Gastroesophageal reflux disease General deterioration of health HPV in female Hyperlipidemia Hyperuricemia Intertrigo Iron deficiency anemia Low back pain Morbid obesity with BMI of 40.0-44.9, adult [place] Osteoporosis screening Pneumonia Positive depression screening Post-menopausal Restless leg syndrome Right hip pain Urge incontinence Vitamin D deficiency Past Surgical History: Procedure Laterality Date BACK SURGERY 2004 CARDIAC CATHETERIZATION Left 06/14/2014 Left Heart-Ventricular Puncture CARDIAC CATHETERIZATION Left 08/13/2018 Left Heart-Ventricular Puncture FOOT SURGERY 09/2015 JOINT REPLACEMENT Left 08/01/2016 Hip replacement REVISION TOTAL HIP ARTHROPLASTY Left 03/[address] LINN SPINAL FUSION 05/07/2003 [facility] TOTAL HIP ARTHROPLASTY Left 08/30/2019 REMOVED TOTAL KNEE ARTHROPLASTY Right 10/18/2018 DR SERRATO TUBAL LIGATION 1988 family history includes COPD in her father; Heart disease in her father and mother; Hyperlipidemia in her father and mother; Hypertension in her father and mother; Mental illness in her mother; Stroke in her father. OBJECTIVE: Visit Vitals BP 118/76 (BP Location: Left arm, Patient Position: Sitting, BP Cuff Size: Adult long) Comment (BP Location): forearm Pulse 74 Temp 98.5 F (Temporal) Resp 22 Wt 236 lb 6.4 oz SpO2 94% BMI 40.58 kg/m Smoking Status Never BSA 2.2 m Physical Exam Vitals and nursing note reviewed. Constitutional: General: She is not in acute distress. Appearance: Normal appearance. HENT: Head: Normocephalic and atraumatic. Right Ear: External ear normal. Left Ear: External ear normal. Nose: Nose normal. Mouth/Throat: Mouth: Mucous membranes are moist. Eyes: Extraocular Movements: Extraocular movements intact. Conjunctiva/sclera: Conjunctivae normal. Cardiovascular: Rate and Rhythm: Normal rate and regular rhythm. Pulses: Normal pulses. Heart sounds: Normal heart sounds. Pulmonary: Effort: Pulmonary effort is normal. Breath sounds: Wheezing (few faint exp) and rhonchi present. Comments: Moist deep barky cough Abdominal: General: Bowel sounds are normal. There is no distension. Palpations: Abdomen is soft. There is no mass. Tenderness: There is no abdominal tenderness. Musculoskeletal: General: Normal range of motion. Cervical back: Normal range of motion and neck supple. Right lower leg: Edema present. Left lower leg: Edema present. Skin: General: Skin is warm and dry. Capillary Refill: Capillary refill takes 2 to 3 seconds. Findings: Erythema (perineal region, erythema,) present. No rash. Comments: Under bilat breast erythema c/w yeast Neurological: General: No focal deficit present. Mental Status: She is alert and oriented to person, place, and time. Psychiatric: Mood and Affect: Mood normal. Behavior: Behavior normal. Thought Content: Thought content normal. Judgment: Judgment normal. ASSESSMENT AND PLAN: No follow-ups on file. Problem List Items Addressed This Visit Depression - Primary Current meds: paxil, and recently added buproprion XL Morbid (severe) obesity due to excess calories (CMS-HCC) Discussed with patient their BMI (actual, verses recommended). We have also discussed lifestyle modifications: attempts to perform physical activity as chronic conditions allow, also to monitor dietary intake: increasing protein/fruits/veggies and lowering carb intake (unless contraindicated). Limit sodas, juices, and sugary drinks. D/t her chronic respiratory status increase in physical activity is nearly impossible Candidiasis of breast Relevant Medications nystatin (Mycostatin) cream Skin pustule Relevant Medications mupirocin (Bactroban) 2 % ointment Associated Problem(s): Depression Current meds: paxil, and recently added buproprion XL Is doing well continue current dose of meds Associated Problem(s): Morbid (severe) obesity due to excess calories (CMS-HCC) Discussed with patient their BMI (actual, verses recommended). We have also discussed lifestyle modifications: attempts to perform physical activity as chronic conditions allow, also to monitor dietary intake: increasing protein/fruits/veggies and lowering carb intake (unless contraindicated). Limit sodas, juices, and sugary drinks. D/t her chronic respiratory status increase in physical activity is nearly impossible Associated Problem(s): Essential hypertension DASH diet Limit caffeine Contact office if chest pain, pressure, dizziness, shortness of breath, swelling legs Recommend slow position changes Current meds: does not take any documented in this encounter [facility] 04-09-2025 History of Present illness Narrative Associated Problem(s): Depression (CMS/HCC) Current med paxil Will add on medication 3L Images from the original note were not included. Diana Champion is a 69 y.o. female presents with chief complaint of Hospital Follow-up HPI: Here for hospital follow up: Discharged to [facility] on 03/25/25. Now at home: breathing has been doing better, no fever, no chills, was changed from trelegy to breztri Does feel this is better, saw dr mcclain this week, good reports No formal dx of diabetes, has had elevated sugars in the past d/t steroid use Depression/OCD: has taken paxil for some time which helps her OCD, trazodone that helps for sleep, still with depression sxs: mostly centered around her chronic lung condition, freq hospitalizations, feels like burden at times and why is she have this problem never was a smoker Denies SI/HI/Hallucinaitons SUBJECTIVE: MEDICATIONS: Current Outpatient Medications Medication Instructions albuterol HFA 90 mcg/act inhaler 2 puffs, Every 4 hours PRN albuterol 2.5 mg, Every 6 hours PRN baclofen (LIORESAL) 10 mg, Oral, 3 times daily Breztri Aerosphere 160-9-4.8 MCG/ACT aerosol Every 12 hours Ensifentrine (Ohtuvayre) 3 MG/2.5ML suspension Every 12 hours ferrous sulfate 325 mg, Daily with breakfast furosemide (LASIX) 20 mg, Daily guaiFENesin (MUCINEX) 1,200 mg, 2 times daily latanoprost (Xalatan) 0.005 % ophthalmic solution INSTILL 1 DROP INTO EACH EYE AT BEDTIME MAGnesium-Oxide 400 mg, Daily montelukast (SINGULAIR) 10 mg, Daily Multiple Vitamin (multivitamin) tablet 1 tablet, Daily omeprazole (PRILOSEC) 20 mg, Oral, Every 12 hours PARoxetine (PAXIL) 40 mg, Oral, Every morning pramipexole (MIRAPEX) 0.25 mg, Oral, Nightly PRN pregabalin (LYRICA) 75 mg, Oral, 2 times daily sodium chloride 0.9 % nebulizer solution 3 mL, 2 times daily traZODone (DESYREL) 100 mg, Oral, Nightly, TAKE 1 TABLET BY MOUTH AT BEDTIME trospium (SANCTURA XR) 60 mg, Daily ALLERGIES: Allergies Allergen Reactions Fentanyl Other Reaction(s): Hallucinating Vancomycin Unknown REVIEW OF SYMPTOMS: Review of Systems Constitutional: Positive for fatigue. Negative for appetite change, chills and fever. HENT: Negative for congestion, ear pain and sore throat. Eyes: Negative for pain, discharge, redness and visual disturbance. Respiratory: Positive for cough, shortness of breath and wheezing. Cardiovascular: Negative for chest pain, palpitations and leg swelling. Gastrointestinal: Negative for abdominal pain, blood in stool, constipation, diarrhea, nausea and vomiting. Genitourinary: Negative for difficulty urinating, dysuria and frequency. Musculoskeletal: Positive for arthralgias (hip pain). Negative for back pain, joint swelling and myalgias. Skin: Negative for rash and wound. Neurological: Negative for dizziness, tremors, seizures, syncope and headaches. Psychiatric/Behavioral: Negative for behavioral problems, self-injury and suicidal ideas. The patient is not nervous/anxious. Depression Hematological: Does not bruise/bleed easily. Endocrine: Negative for polydipsia, polyphagia and polyuria. Allergic/Immunologic: Negative for environmental allergies and food allergies. PAST MEDICAL HISTORY Past Medical History: Diagnosis Date Alcohol screening Arthritis Asthma At moderate risk for fall Benign essential [...] artery disease (CMS/HCC) Depression (CMS/HCC) Emphysema, unspecified Encounter for gynecological examination (general) (routine) without [...] 03/[address] LINN SPINAL FUSION 05/07/2003 [facility] TOTAL HIP ARTHROPLASTY Left 08/30/2019 REMOVED TOTAL KNEE ARTHROPLASTY Right 10/18/2018 DR SERRATO TUBAL LIGATION 1987 family history includes COPD in her father; Heart disease in her father and mother; Hyperlipidemia in her father and mother; Hypertension in her father and mother; Mental illness in her mother; Stroke in her father. OBJECTIVE: Visit Vitals BP 122/70 (BP Location: Left arm, Patient Position: Sitting, BP Cuff Size: Large adult) Pulse 73 Temp 98.2 F (Temporal) Resp 22 Wt 240 lb SpO2 93% BMI 41.20 kg/m Smoking Status Never BSA 2.22 m Physical Exam Vitals and nursing note reviewed. Constitutional: General: She is not in acute distress. Appearance: Normal appearance. She is obese. She is ill-appearing (chronically). HENT: Head: Normocephalic and atraumatic. Right Ear: External ear normal. Left Ear: External ear normal. Nose: Nose normal. Mouth/Throat: Mouth: Mucous membranes are moist. Eyes: Extraocular Movements: Extraocular movements intact. Conjunctiva/sclera: Conjunctivae normal. Cardiovascular: Rate and Rhythm: Normal rate and regular rhythm. Pulses: Normal pulses. Heart sounds: Normal heart sounds. No murmur heard. Pulmonary: Effort: Pulmonary effort is normal. Breath sounds: Wheezing and rhonchi present. Comments: Prolonged exp phase, Exp wheeze noted Abdominal: General: Bowel sounds are normal. There is no distension. Palpations: Abdomen is soft. There is no mass. Tenderness: There is no abdominal tenderness. Musculoskeletal: General: Normal range of motion. Cervical back: Normal range of motion and neck supple. Right lower leg: No edema. Left lower leg: No edema. Skin: General: Skin is warm and dry. [...] This Visit Chronic obstructive pulmonary disease (COPD) ([facility]) Current meds: albuterol nebs and inhaler, trelegy, oxygen Follows with Pulmonology [facility] Depression (CMS/HCC) - Primary Current med paxil Will add on medication Morbid (severe) obesity due to excess calories (CMS/HCC) Discussed with patient their BMI (actual, verses recommended). We have also discussed lifestyle modifications: attempts to perform physical activity as chronic conditions allow, also to monitor dietary intake: increasing protein/fruits/veggies and lowering carb intake (unless contraindicated). Limit sodas, juices, and sugary drinks. 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 04-09-2025 Instructions Kaylene López NP - 04/09/2025 11:00 AM EDT Will add on med for depression, will call pt w decision documented in this encounter [facility] 03-24-2025 Hospital Discharge instructions Patient Education 03/24/2025 10:43:28 Overactive Bladder, Adult Overactive Bladder, Adult Overactive [...] your health care provider. General instructions Take [id number] and prescription medicines only as told by [...] provider. Document Revised: 07/12/2021 Document Reviewed: 07/12/2021 [employer] Patient Education 2023 [employer]. Follow Up Care 10/15/2024 15:05:18 With:MAG BLOUNT PA-C, URL Address: [address] [place] [address] When:Within 3 Month(s) [facility] 03-24-2025 Note Patient Education Obstetrics and Gynecology Overactive [...] health care provider. General instructions ??? Take [id number] and prescription medicines only as told by [...] drink, and whe (more content not included)... [facility] 02-17-2025 History of Present illness Narrative Associated Problem(s): Edema of both lower extremities Elevate legs Compression stockings Fu in 4 weeks, call office if worsening Associated Problem(s): Spinal stenosis, lumbar region without neurogenic claudication Continue with lyrica and pain mgmt Swelling in both legs- knee down 02 is 3L Pt is now on breztri and ohtuvaryre 3mg/2.5ml inhalation suspension Left foot hurts more pt states it feels broken due to the pain Images from the original note were not included. Diana Champion is a 69 y.o. female presents with chief complaint of No chief complaint on file. HPI: Breathing is stable, still with deep moist cough, no fever, continues with pulmonology Feels as though paxil is working for depression/anxiety Edema: few weeks, better today then last week, is taking lasix,saw cardiology in 01/28, does not need to go back, is not eating much sodium, however is doing a lot of sitting with legs NOT elevated Also needs something for diaper rash, wears brief as well. GERD sxs are stable with current meds SUBJECTIVE: MEDICATIONS: Current Outpatient Medications Medication Instructions albuterol HFA 90 mcg/act inhaler 2 puffs, Every 4 hours PRN albuterol 2.5 mg, Every 6 hours PRN baclofen (LIORESAL) 10 mg, Oral, 3 times daily ferrous sulfate 325 mg, Daily with breakfast Pgyuigqtrvv-Egtuvmeey-Jokztm (Trelegy Ellipta) 200-62.5-25 MCG/ACT aerosol powder 1 puff, Daily furosemide (LASIX) 20 mg, Daily guaiFENesin (MUCINEX) 1,200 mg, 2 times daily latanoprost (Xalatan) 0.005 % ophthalmic solution INSTILL 1 DROP INTO EACH EYE AT BEDTIME MAGnesium-Oxide 400 mg, Daily montelukast (SINGULAIR) 10 mg, Daily Multiple Vitamin (multivitamin) tablet 1 tablet, Daily nystatin (Mycostatin) cream Topical, 2 times daily, Apply to affected area omeprazole (PRILOSEC) 20 mg, Oral, Every 12 hours PARoxetine (PAXIL) 40 mg, Oral, Every morning pramipexole (MIRAPEX) 0.25 mg, Oral, Nightly PRN pregabalin (LYRICA) 75 mg, Oral, 2 times daily sodium chloride 0.9 % nebulizer solution 3 mL, 2 times daily solifenacin (VESICARE) 10 mg, Oral, Daily traMADol (ULTRAM) 50 mg, Every 12 hours traZODone (DESYREL) 100 mg, Oral, Nightly, TAKE 1 TABLET BY MOUTH AT BEDTIME ALLERGIES: Allergies Allergen Reactions Fentanyl Other Reaction(s): Hallucinating Vancomycin Unknown REVIEW OF SYMPTOMS: Review of Systems Constitutional: Negative for appetite change, chills and fever. HENT: Negative for congestion, ear pain and sore throat. Eyes: Negative for pain, discharge, redness and visual disturbance. Respiratory: Positive for cough and shortness of breath. Negative for wheezing. Cardiovascular: Positive for leg swelling. Negative for chest pain and palpitations. Gastrointestinal: Negative for abdominal pain, blood in stool, constipation, diarrhea, nausea and vomiting. Genitourinary: Negative for difficulty urinating, dysuria and frequency. Musculoskeletal: Negative for arthralgias, back pain, joint swelling and myalgias. Skin: Positive for rash. Negative for wound. Neurological: Negative for dizziness, tremors, seizures, syncope and headaches. Psychiatric/Behavioral: Negative for behavioral problems, self-injury and suicidal ideas. The patient is not nervous/anxious. Hematological: Does not bruise/bleed easily. Endocrine: Negative for polydipsia, polyphagia and polyuria. Allergic/Immunologic: Negative for environmental allergies and food allergies. PAST MEDICAL HISTORY Past Medical History: Diagnosis Date Alcohol screening Arthritis Asthma At moderate risk for fall Benign essential [...] artery disease (CMS/HCC) Depression (CMS/HCC) Emphysema, unspecified Encounter for gynecological examination (general) (routine) without abnormal findings Essential (primary) hypertension (CMS/HCC) Exposure to STD Gastroesophageal reflux disease General deterioration of health HPV in female Hyperlipidemia (CMS/HCC) Hyperuricemia Intertrigo Iron deficiency anemia Low back pain Morbid obesity with BMI of 40.0-44.9, adult (CMS/[facility]) Osteoporosis screening Pneumonia Positive depression screening Post-menopausal Restless leg syndrome Right hip pain Urge incontinence Vitamin D deficiency Past Surgical History: Procedure Laterality Date BACK SURGERY 2004 CARDIAC CATHETERIZATION Left 06/14/2014 Left Heart-Ventricular Puncture CARDIAC CATHETERIZATION Left 08/13/2018 Left Heart-Ventricular Puncture FOOT SURGERY 09/2015 JOINT REPLACEMENT Left 08/01/2016 Hip replacement REVISION TOTAL HIP ARTHROPLASTY Left 03/[address] LINN SPINAL FUSION 05/07/2003 [facility] TOTAL HIP ARTHROPLASTY Left 08/30/2019 REMOVED TOTAL KNEE ARTHROPLASTY Right 10/18/2018 DR SERRATO TUBAL LIGATION 1988 family history includes COPD in her father; Heart disease in her father and mother; Hyperlipidemia in her father and mother; Hypertension in her father and mother; Mental illness in her mother; Stroke in her father. OBJECTIVE: Visit Vitals BP 118/72 (BP Location: Left arm, Patient Position: Sitting, BP Cuff Size: Adult long) Pulse 85 Temp 98.8 F (Temporal) Resp 24 SpO2 90% Smoking Status Never Physical Exam Vitals and nursing note reviewed. Constitutional: General: She is not in acute distress. Appearance: Normal appearance. HENT: Head: Normocephalic and atraumatic. Right Ear: External ear normal. Left Ear: External ear normal. Nose: Nose normal. Mouth/Throat: Mouth: Mucous membranes are moist. Eyes: Extraocular Movements: Extraocular movements intact. Conjunctiva/sclera: Conjunctivae normal. Cardiovascular: Rate and Rhythm: Normal rate and regular rhythm. Pulses: Normal pulses. Heart sounds: Normal heart sounds. Pulmonary: Breath sounds: Wheezing and rhonchi present. Comments: Deep moist/wet cough, wears oxygen as well Sl labored w breathing and speaking, but it is her normal baseline Abdominal: General: Bowel sounds are normal. There is no distension. Palpations: Abdomen is soft. There is no mass. Tenderness: There is no abdominal tenderness. Musculoskeletal: General: Normal range of motion. Cervical back: Normal range of motion and neck supple. Right lower leg: Edema present. Left lower leg: Edema present. Comments: 2+ pre tibial and pedal, no calf tenderness Lymphadenopathy: Cervical: No cervical adenopathy. Skin: Capillary Refill: Capillary refill takes 2 to 3 seconds. Findings: Rash present. Neurological: General: No focal deficit present. Mental Status: She is alert and oriented to person, place, and time. Psychiatric: Mood and Affect: Mood normal. Behavior: Behavior normal. Thought Content: Thought content normal. Judgment: Judgment normal. ASSESSMENT AND PLAN: No follow-ups on file. Problem List Items Addressed This Visit Chronic heart failure with preserved ejection fraction (CMS/HCC) Last ECHO currently in the chart is form 05/29: EF 50%, significantly elevated right sided pressure at 65 [facility] Cardiology Gastroesophageal reflux disease Recommendations: freq small meals, nothing to eat or drink at least 2 hours prior to bed, limit caffeine, alcohol, as well as spicy foods Meds to limit or avoid if possible: NSAIDS Elevate HOB if possible Current meds: omeprazole Morbid (severe) obesity due to excess calories (CMS/HCC) Discussed with patient their BMI (actual, verses recommended). We have also discussed lifestyle modifications: attempts to perform physical activity as chronic conditions allow, also to monitor dietary intake: increasing protein/fruits/veggies and lowering carb intake (unless contraindicated). Limit sodas, juices, and sugary drinks. D/t her chronic respiratory status increase in physical activity is nearly impossible Spinal stenosis, lumbar region without neurogenic claudication - Primary Continue with lyrica and pain mgmt Severe persistent asthma, uncomplicated (CMS/HCC) Is under the care of dr mcclain Current meds for treatment of asthma/COPD: albuterol, trelegy, singulair Chronic respiratory failure with hypoxia (CMS/HCC) Is oxygen dependant, non invasive vent at night Johny is managing digital coordinator Edema of both lower extremities Elevate legs Compression stockings Fu in 4 weeks, call office if worsening Candidiasis Relevant Medications nystatin (Mycostatin) cream Other Visit Diagnoses RLS (restless legs syndrome) Relevant Medications pramipexole (Mirapex) 0.25 MG tablet Associated Problem(s): Rheumatoid arthritis, unspecified Has a diagnosis of this Associated Problem(s): Morbid (severe) obesity due to [...] increase in physical activity is nearly impossible Associated Problem(s): Gastroesophageal reflux disease Recommendations: freq small meals, nothing to eat or drink at least 2 hours prior to bed, limit caffeine, alcohol, as well as spicy foods Meds to limit or avoid if possible: NSAIDS Elevate HOB if possible Current meds: omeprazole Associated Problem(s): Severe persistent asthma, uncomplicated (CMS/HCC) Is under the care of dr mcclain Current meds for treatment of asthma/COPD: albuterol, trelegy, singulair Associated Problem(s): Chronic respiratory failure with hypoxia (CMS/HCC) Is oxygen dependant, non invasive vent at night Johny is managing digital coordinator Associated Problem(s): Chronic obstructive pulmonary disease (COPD) (CMS/HCC) Current meds: albuterol nebs and inhaler, trelegy, oxygen Follows with Pulmonology Johny Associated Problem(s): Chronic heart failure with preserved ejection fraction (CMS/HCC) Last ECHO currently in the chart is form 05/29: EF 50%, significantly elevated right sided pressure at 65 [facility] Cardiology documented in this encounter [facility] 01-23-2025 Note [facility] Cardiology Clinic Note Chief Complaint: Patient here for 8 mo follow up CAD and hypertension. She's been in and out of [facility] for pneumonia recently. Had echo a few weeks ago during admission. No longer taking potassium with lasix. Denies chest pain, palpitations, and syncope. HPI: Diana Champion is a 69 y.o. female With a history of nonobstructive coronary artery disease and hypertension here in follow-up. She was diagnosed with COVID at the end of March. She has been more short of breath since then. She has seen her digital coordinator. Her chest pain is noncardiac. She has [...] external dyspnea. She denies lower extremity edema. UPDATE 01/23/2025 No change in her cardiovascular symptoms Admitted to the hospital with pulmonary disorders Cardiology ROS: Review of Systems Cardiovascular: Positive for dyspnea on exertion and leg swelling. Respiratory: Positive for shortness of breath and wheezing. Musculoskeletal: Positive for arthritis, back pain, joint pain, muscle weakness and myalgias. Neurological: Positive for light-headedness. All other systems reviewed and are negative. Past Medical History She has a past medical history of Allergic rhinitis, Anemia, Asthma, Cancer (CMS/HCC), Chronic heart failure with preserved ejection fraction (CMS/HCC), Chronic hypoxic respiratory failure (CMS/HCC), Chronic kidney disease, COPD (chronic obstructive pulmonary disease) (CMS/HCC), Coronary artery disease, Depression, Diabetes mellitus (CMS/HCC), Dyspnea, GERD (gastroesophageal reflux disease), Hyperlipidemia, Lumbar spondylosis, Other secondary pulmonary hypertension (CMS/HCC), Pneumonia, Primary osteoarthritis of right hip, Pulmonary nodule, Restless leg syndrome, Spinal stenosis, lumbar region without neurogenic claudication, and Urge incontinence. She has no past medical history of Anxiety. Surgical History She has a past surgical history that includes Back surgery; Tubal ligation; Cardiac catheterization (Left); Total hip arthroplasty; FL guided aspiration or injection large joint bilateral (Bilateral, 07/25/2019); Foot surgery (Right); Knee Arthroplasty (Right); and Cataract extraction. Social History She reports that she has never smoked. She has never used smokeless tobacco. She reports that she does not currently use alcohol. She reports that she does not use [...] FOR SHORTNESS OF BREATH, Disp: , Rfl: alendronate (Fosamax) 35 mg tablet, TAKE 1 TABLET BY MOUTH 30 MINUTES BEFORE THE FIRST FOOD, BEVERAGE, OR MEDICINE OF THE DAY WITH PLAIN WATER ONCE A WEEK., Disp: , Rfl: baclofen (Lioresal) 10 mg tablet, TAKE 1 TABLET BY MOUTH THREE TIMES DAILY (MORNING, EVENING, BEFORE BEDTIME), Disp: , Rfl: baclofen (Lioresal) 5 mg tablet, Take 10 mg by mouth in the morning, afternoon, and at bedtime., Disp: , Rfl: cholecalciferol (Vitamin D-3) 25 MCG (1000 UT) tablet, Take 1 tablet by mouth in the morning., Disp: , Rfl: ferrous sulfate 325 (65 Fe) MG tablet, Take 325 mg by mouth every other day., Disp: , Rfl: cjaofgzhenp-mpajyppwj-pczznrqd 100-62.5-25 mcg blister with device, , Disp: , Rfl: furosemide (Lasix) 20 mg tablet, Take 20 mg by mouth in the morning., Disp: , Rfl: guaiFENesin (Mucinex) 600 mg 12 hr tablet, Take 1 tablet by mouth in the morning and at bedtime., Disp: , Rfl: Klor-Con M20 20 mEq ER tablet, TAKE 1 BY MOUTH WITH FOOD TWICE DAILY FOR 90 DAYS, Disp: , Rfl: latanoprost (Xalatan) 0.005 % ophthalmic solution, INSTILL 1 DROP INTO EACH EYE AT BEDTIME, Disp: , Rfl: magnesium oxide (Mag-Ox) 400 mg (241.3 mg magnesium) tablet, TAKE 1 TABLET BY MOUTH ONCE DAILY WITH FOOD, Disp: , Rfl: montelukast (Singulair) 10 mg tablet, Take 1 tablet by mouth at bedtime., Disp: , Rfl: multivitamin (Theragran-M) 9 mg iron-400 mcg tablet, Take 1 tablet by mouth in the morning., Disp: , Rfl: ofloxacin (Ocuflox) 0.3 % ophthalmic solution, , Disp: , Rfl: omeprazole (PriLOSEC) [address] capsule, Take 20 mg by mouth before breakfast and before evening meal., Disp: , Rfl: PARoxetine (Paxil) 20 mg tablet, Take 30 mg by mouth in the morning., Disp: , Rfl: PARoxetine (Paxil) 30 mg tablet, Take 30 mg by mouth., Disp: , Rfl: pramipexole (Mirapex) 0.25 mg tablet, YOKO (more content not included)... [facility] 01-16-2025 History of Present illness Narrative Associated Problem(s): Depression (CMS/HCC) Currently taking paxil, does feel that she would benefit from a higher dose. D/t depression. Feels overwhelmed at times with all her health issues Increase paroxetine to 40mg daily Fu in 4 weeks 3L 02 Wet cough Wheezing Sob Not as tired/fatigue Pt took atb (doxy) this morning Told her about new atb and sputum result. She will miner pick new atb after appt. Images from the original note were not included. Diana Champion is a 69 y.o. female presents with chief complaint of No chief complaint on file. HPI: Here for hospital follow up Pneumonia,/covid: sputum culture back pseudomonas , changed doxycycline, to levaquin she will pick this up today She is breathing better, no fever, chills, +weakness, has home health Nurse from [facility] coming today, not sure if any therapy has been ordered Has fu with pulmonology 01/29/25. Wears her oxygen and non invasive vent at night Appetitie is ok, and bowels are moving ok Depression Visit Type: follow-up Patient presents with the following symptoms: depressed mood, excessive worry, fatigue, irritability, muscle tension and shortness of breath. Patient is not experiencing: anhedonia, feelings of hopelessness, nervousness/anxiety, palpitations, suicidal ideas, suicidal planning and thoughts of . Frequency of symptoms: constantly Severity: moderate Compliance with medications: 76-100% SUBJECTIVE: MEDICATIONS: Current Outpatient Medications Medication Instructions albuterol HFA 90 mcg/act inhaler 2 puffs, Every 4 hours PRN albuterol 2.5 mg, Every 6 hours PRN baclofen (LIORESAL) 10 mg, Oral, 3 times daily ferrous sulfate 325 mg, Daily with breakfast Gloywagllux-Dxealpnao-Fvrdad (Trelegy Ellipta) 200-62.5-25 MCG/ACT aerosol powder 1 puff, Daily furosemide (LASIX) 20 mg, Daily guaiFENesin (MUCINEX) 1,200 mg, 2 times daily latanoprost (Xalatan) 0.005 % ophthalmic solution INSTILL 1 DROP INTO EACH EYE AT BEDTIME levoFLOXacin (LEVAQUIN) 750 mg, Oral, Daily, Discontinue doxycycline script MAGnesium-Oxide 400 mg, Daily montelukast (SINGULAIR) 10 mg, Daily Multiple Vitamin (multivitamin) tablet 1 tablet, Daily omeprazole (PRILOSEC) 20 mg, Oral, Every 12 hours PARoxetine (PAXIL) 40 mg, Oral, Every morning pramipexole (MIRAPEX) 0.25 mg, Oral, Nightly PRN predniSONE (DELTASONE) 10 mg, Daily pregabalin (Lyrica) 75 MG capsule TAKE 1 [...] of Systems Constitutional: Positive for fatigue and irritability. Negative for appetite change, chills and fever. HENT: Negative for congestion, ear pain and sore throat. Eyes: Negative for pain, discharge, redness and visual disturbance. Respiratory: Positive for cough, shortness of breath and wheezing. Cardiovascular: Negative for chest pain, palpitations and leg swelling. Gastrointestinal: Negative for abdominal pain, blood in stool, constipation, diarrhea, nausea and vomiting. Genitourinary: Negative for difficulty urinating, dysuria and frequency. Musculoskeletal: Negative for arthralgias, back pain, joint swelling and myalgias. Skin: Negative for rash and wound. Neurological: Positive for weakness. Negative for dizziness, tremors, seizures, syncope and headaches. Psychiatric/Behavioral: Positive for depression. Negative for behavioral problems, self-injury and suicidal ideas. The patient is not nervous/anxious. Depression Hematological: Does not bruise/bleed easily. Endocrine: Negative for polydipsia, polyphagia and polyuria. Allergic/Immunologic: Negative for environmental allergies and food allergies. PAST MEDICAL HISTORY Past Medical History: Diagnosis Date Alcohol screening Arthritis Asthma ([facility]) At moderate risk for fall Benign essential HTN ([facility]) Breast cancer screening by mammogram Chronic back pain greater than 3 months duration Chronic heart failure with preserved ejection fraction ([facility]) Chronic kidney disease, stage III (moderate) (HCC) ([facility]) Chronic obstructive pulmonary disease (COPD) ([facility]/HCC) Colon cancer ([facility]/HCC) Colorectal cancer ([facility]/HCC) Contact w and exposure to oth viral communicable diseases COPD exacerbation ([facility]/HCC) Coronary artery disease ([facility]/HCC) Depression ([facility]/HCC) Emphysema, unspecified ([facility]) Encounter for gynecological examination (general) (routine) without abnormal findings Essential (primary) hypertension ([facility]/HCC) Exposure to STD Gastroesophageal reflux disease General deterioration of health HPV in female Hyperlipidemia (CMS/HCC) Hyperuricemia Intertrigo Iron deficiency anemia Low back pain Morbid obesity with BMI of 40.0-44.9, adult ([facility]) Osteoporosis screening Pneumonia Positive depression screening Post-menopausal Restless leg syndrome Right hip pain Urge incontinence Vitamin D deficiency Past Surgical History: Procedure Laterality Date BACK SURGERY 2004 CARDIAC CATHETERIZATION Left 06/14/2014 Left Heart-Ventricular Puncture CARDIAC CATHETERIZATION Left 08/13/2018 Left Heart-Ventricular Puncture FOOT SURGERY 09/2015 JOINT REPLACEMENT Left 08/01/2016 Hip replacement REVISION TOTAL HIP ARTHROPLASTY Left 03/[address] LINN SPINAL FUSION 05/07/2003 [facility] TOTAL HIP ARTHROPLASTY Left 08/30/2019 REMOVED TOTAL KNEE ARTHROPLASTY Right 10/18/2018 DR SERRATO TUBAL LIGATION 1988 family history includes COPD in her father; Heart disease in her father and mother; Hyperlipidemia in her father and mother; Hypertension in her father and mother; Mental illness in her mother; Stroke in her father. OBJECTIVE: Visit Vitals BP 108/80 (BP Location: Left arm, Patient Position: Sitting, BP Cuff Size: Adult long) Comment (BP Location): forarm Pulse 68 Temp 99 F (Temporal) Resp 26 SpO2 93% Smoking Status Never Physical Exam Vitals and nursing note reviewed. Constitutional: General: She is not in acute distress. Appearance: Normal appearance. She is obese. She is ill-appearing (chronically). HENT: Head: Normocephalic and atraumatic. Right Ear: External ear normal. Left Ear: External ear normal. Nose: Nose normal. Mouth/Throat: Mouth: Mucous membranes are moist. Eyes: Extraocular Movements: Extraocular movements intact. Conjunctiva/sclera: Conjunctivae normal. Cardiovascular: Rate and Rhythm: Normal rate and regular rhythm. Pulses: Normal pulses. Heart sounds: Normal heart sounds. No murmur heard. Pulmonary: Breath sounds: Wheezing and rhonchi present. Comments: Deep moist cough, wearing oxygen, with prolonged exp phase Abdominal: General: Bowel sounds are normal. There is no distension. Palpations: Abdomen is soft. There is no mass. Tenderness: There is no abdominal tenderness. Musculoskeletal: General: Normal range of motion. Cervical back: Normal range of motion and neck supple. Right lower leg: No edema. Left lower leg: No edema. Skin: General: Skin is warm and dry. [...] Problem List Items Addressed This Visit Chronic heart failure with preserved ejection fraction (CMS/HCC) Last ECHO currently in the chart is form 05/29: EF 50%, significantly elevated right sided pressure at 65 Chronic kidney disease, stage 3a (HCC) (CMS/HCC) Monitor labs Depression ([facility]/HCC) Relevant Medications PARoxetine (Paxil) 40 MG tablet Morbid (severe) obesity due to excess calories (CMS/HCC) Discussed with patient their BMI (actual, verses recommended). We have also discussed lifestyle modifications: attempts to perform physical activity as chronic conditions allow, also to monitor dietary intake: increasing protein/fruits/veggies and lowering carb intake (unless contraindicated). Limit sodas, juices, and sugary drinks. D/t her chronic respiratory status increase in physical activity is nearly impossible Other secondary pulmonary hypertension (CMS/HCC) Noted on ECHO findings 05/29 Essential hypertension ([facility]/HCC) DASH diet Limit caffeine Contact office if chest pain, pressure, dizziness, shortness of breath, swelling legs Recommend slow position changes Current meds: does not take any Severe persistent asthma, uncomplicated (CMS/HCC) Is under the care of dr mcclain Current meds for treatment of asthma/COPD: albuterol, trelegy, singulair Chronic respiratory failure with hypoxia ([facility]) Is oxygen dependant Screening mammogram for breast cancer Relevant Orders Bilateral screening mammogram Pneumonia due to infectious organism - Primary Respiratory panel: culture pseudomonas Was sent home on doxy, will have her stop this, and start levoquin 750mg daily for 7 day Recent hospitalization to [facility]: back to back, 01/02/25 and 01/08/25 I have reviewed her hospital notes, labs, discharge info as well Associated Problem(s): Morbid (severe) obesity due to [...] increase in physical activity is nearly impossible Associated Problem(s): Chronic kidney disease, stage 3a (HCC) (CMS/HCC) Monitor labs Used to see dr bernard, told she did not have to return to see him Associated Problem(s): Other secondary pulmonary hypertension (CMS/HCC) Noted on ECHO findings 05/29 Associated Problem(s): Essential hypertension (CMS/HCC) DASH diet Limit caffeine Contact office if chest pain, pressure, dizziness, shortness of breath, swelling legs Recommend slow position changes Current meds: does not take any Associated Problem(s): Chronic heart failure with preserved ejection fraction (CMS/HCC) Last ECHO currently in the chart is form 05/29: EF 50%, significantly elevated right sided pressure at 65 [facility] Cardiology Associated Problem(s): Severe persistent asthma, uncomplicated (CMS/HCC) Is under the care of dr mcclain Current meds for treatment of asthma/COPD: albuterol, trelegy, singulair Associated Problem(s): Pneumonia due to infectious organism Respiratory panel: culture pseudomonas Was sent home on doxy, will have her stop this, and start levoquin 750mg daily for 7 day Recent hospitalization to [facility]: back to back, 01/02/25 and 01/08/25 I have reviewed her hospital notes, labs, discharge info as well Associated Problem(s): Chronic respiratory failure with hypoxia (CMS/HCC) Is oxygen dependant, non invasive vent at night samsa documented in this encounter [facility] 01-16-2025 Instructions Kaylene López NP - 01/16/2025 10:00 AM EDT Increase paxil or paroxetine to 40mg Take medication only as directed. This medication will take approximately 4-6 weeks to become effective. If any suicidal thoughts, thoughts of hurting others, or hallucinations contact the office or proceed to the Emergency Room for mental health evaluation. Medication may cause dry mouth, dizziness, and in some cases worsening in depression symptoms. Please contact the office if these occur. Change antibiotic to levaquin, stop doxycycline See you in 4 weeks Let me know if I need to order PT and OT for home documented in this encounter [facility] 01-15-2025 History of Present illness Narrative Associated Problem(s): Pneumonia due to infectious organism Respiratory panel: culture pseudomonas Was sent home on doxy, will have her stop this, and start levoquin 750mg daily for 7 day documented in this encounter [facility] 01-02-2025 History of Present illness Narrative Associated Problem(s): Flu-like symptoms Neg, still strong clinical suspicion for flu, d/t severe pulmonary conditions and weakness will send her to [facility] ER for evaluation DD: pneumonia, covid, flu, RSV Associated Problem(s): Chronic respiratory failure with hypoxia (CMS/HCC) Oxygen level 88-90% w walking, normal 94-95% w oxygen Associated Problem(s): Chronic obstructive pulmonary disease (COPD) (CMS/HCC) [facility] digital coordinator Pt started having symptoms on Monday with [...] Diarrhea started today, others have been sick [facility] digital coordinator Flu Symptoms This is a new problem. [...] ferrous sulfate 325 mg, Daily with breakfast Iiaqpzxylef-Wzoujvbdn-Dswfty (Trelegy Ellipta) 200-62.5-25 MCG/ACT aerosol powder 1 [...] (HCC) (CMS/HCC) Chronic obstructive pulmonary disease (COPD) ([facility]/HCC) Colon cancer ([facility]/HCC) Colorectal cancer ([facility]/HCC) Contact w and exposure to oth viral communicable diseases COPD exacerbation (CMS/HCC) Coronary artery disease ([facility]/HCC) Depression ([facility]/HCC) Emphysema, unspecified ([facility]) Encounter for gynecological examination (general) (routine) without abnormal findings Essential (primary) hypertension ([facility]/HCC) Exposure to STD Gastroesophageal reflux disease General deterioration of health HPV in female Hyperlipidemia ([facility]/HCC) Hyperuricemia Intertrigo Iron deficiency anemia Low back pain Morbid obesity with BMI of 40.0-44.9, adult ([facility]) Osteoporosis screening Pneumonia Positive depression screening Post-menopausal Restless leg syndrome Right hip pain Urge incontinence Vitamin D deficiency Past Surgical History: Procedure Laterality Date BACK SURGERY 2004 CARDIAC CATHETERIZATION Left 06/14/2014 Left Heart-Ventricular Puncture CARDIAC CATHETERIZATION Left 08/13/2018 Left Heart-Ventricular Puncture FOOT SURGERY 09/2015 JOINT REPLACEMENT Left 08/01/2016 Hip replacement REVISION TOTAL HIP ARTHROPLASTY Left 03/[address] LINN SPINAL FUSION 05/07/2003 [facility] TOTAL HIP ARTHROPLASTY Left 08/30/2019 REMOVED TOTAL KNEE ARTHROPLASTY Right 10/18/2018 DR SERRATO TUBAL LIGATION 1987 family history includes COPD in her father; [...] This Visit Chronic obstructive pulmonary disease (COPD) ([facility]/HCC) [facility] digital coordinator Morbid (severe) obesity due to excess calories ([facility]) Discussed with patient their BMI (actual, verses recommended). We have also discussed lifestyle modifications: attempts to perform physical activity as chronic conditions allow, also to monitor dietary intake: increasing protein/fruits/veggies and lowering carb intake (unless contraindicated). Limit sodas, juices, and sugary drinks. Essential hypertension ([facility]/HCC) DASH diet Limit caffeine Contact office if [...] conditions and weakness will send her to [facility] ER for evaluation DD: pneumonia, covid, flu, [...] Current meds: omeprazole Associated Problem(s): Essential hypertension (CMS/HCC) DASH diet Limit caffeine Contact office if chest pain, pressure, dizziness, shortness of breath, swelling legs Recommend slow position changes Current meds: does not take any documented in this encounter [facility] 12-17-2024 History of Present illness Narrative [...] Visit: 6 months documented in this encounter [facility] 12-17-2024 History of Present illness Narrative Images from the original note were not included. HISTORY OF PRESENT ILLNESS: EST PT Diana Champion is an 69 y.o. @ female. EST PT HERE FOR YEARLY REACHECK RT TKA ~6YRS 2MO (10/18/18) - XRAY RT KNEE & RT HIP TODAY EPIC 12/17/24 XRAY EXA 11/16/22 XRAY NOMS SRIDHAR (EXA) 11/18/20 NO BONE SCAN NO [...] ferrous sulfate 325 mg, Daily with breakfast Ebjvzngaqxe-Aeavcanvs-Lkapgx (Trelegy Ellipta) 200-62.5-25 MCG/ACT aerosol powder 1 [...] be necessary. Pt will consult with her Character Actress to see if she would be a [...] requiring urgent evaluation. documented in this encounter [facility] 12-13-2024 History of Present illness Narrative [...] skin of chest Chest - Medial (Center) Fenton macule at the biopsy site. Destr of lesion Complexity: simple Destruction method: cryotherapy Informed consent: discussed and consent obtained Informed consent comment: The risks of the procedure were discussed, including, but not limited to risks of scarring, darker or label remover pigmentary changes, recurrence, infection, and incomplete removal [...] or tenderness. Additional details: Previous accession number: [id number] Discussed treatment options excision vs cryotherapy in detail. Patient opted for cryotherapy. Cryotherapy completed today, see procedure note. Return to clinic prior to next scheduled visit for any signs or symptoms of recurrence, reviewed the signs and symptoms. Recommended 6 month skin exam. Next Visit: as scheduled documented in this encounter [facility] 11-28-2024 History of Present illness Narrative Associated Problem(s): Chronic obstructive pulmonary disease (COPD) ([facility]) Was admitted to [facility] for COPD with acute exacerbation. Was treated [...] for Hospital Follow-up. HPI Was admitted to [facility] for COPD with acute exacerbation. Was treated [...] This Visit Chronic obstructive pulmonary disease (COPD) ([facility]) - Primary Was admitted to [facility] for COPD with acute exacerbation. Was treated [...] hospital follow up. documented in this encounter [facility] 11-28-2024 Instructions Aida Reese NP - 11/28/2024 1:[address] Mcclain's office to see if he wants to see you for hospital follow up sooner than January. Take and finish all medications as directed. documented in this encounter [facility] 11-12-2024 History of Present illness Narrative Associated Problem(s): Chronic obstructive pulmonary disease (COPD) ([facility]) 5 days ago woke up, body aches, [...] This Visit Chronic obstructive pulmonary disease (COPD) ([facility]) - Primary 5 days ago woke up, [...] 1 g tablet documented in this encounter [facility] 11-12-2024 Instructions Aida Reese NP - [...] [facility]. documented in this encounter [facility] 10-17-2024 Note Attestation signed by Emelia [...] Age: 69 y.o. : 1955 Account No.: [id number] Referring physician: Dr. Bo Mcclain Chief complaint: Recurreny pneumonia HPI Diana Champion is a 69 y.o. female with PMHx of chronic hypoxic respiratory failure on 3L home O2, tracheobronchomalacia who is presenting to clinic for follow up. Patient was previously referred by Dr. Bo Mcclain of [facility] in June of 2024. Patient had been having frequent pneumonias requiring hospitalization thought to be secondary to dynamic airway collapse. Therefore we performed bronchoscopy with airway inspection on 07/02/2024 which showed severe tracheobronchomalacia with mucous plugging. She subsequently followed up post procedure and different treatment options were discussed. She was hesitant to undergo APC or tracheal bronchoplasty at [facility] and instead opted to trial CPAP to [...] years. 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 Her family history is positive for COPD [...] Diagnosis Date Allergic rhinitis Anemia Asthma Cancer ([facility]) Chronic heart failure with preserved ejection fraction ([facility]) Chronic hypoxic respiratory failure ([facility]) Chronic kidney disease COPD (chronic obstructive pulmonary disease) ([facility]) Coronary artery disease Depression Diabetes mellitus ([facility]) Dyspnea GERD (gastroesophageal reflux disease) Hyperlipidemia Lumbar spondylosis Other secondary pulmonary hypertension ([facility]) Pneumonia Primary osteoarthritis of right hip Pulmonary [...] mg by bessie (more content not included)... [facility] 10-15-2024 Hospital Discharge instructions Patient Education 10/15/2024 [...] your health care provider. General instructions Take qcup-mag-dvfixvp and prescription medicines only as told by [...] provider. Document Revised: 07/12/2021 Document Reviewed: 07/12/2021 [employer] Patient Education 2023 [employer]. Follow Up Care 10/11/2024 14:37:09 With:JOSE ALEJANDRO MICHAUD, MAG Hester, JACQUELINEL Address: [facility] [address] [facility] [place] [address] When:Within 3 Month(s) [facility] 10-15-2024 Note Urology Office/Clini c [...] 235.894 lb BMI: 40.27 Assessment/Plan CHF - [facility] CKD - Joana COPD/Pulm - Samsa/Omballi. [...] could include cysto, urodynamics, Botox, SNM. Orders: [id number] Measure Post Void residual urine and/or bladder capacity by US- non-imaging E&M of New Patient Moderate 45-59 Min 81146 Urine Culture Urnls Dip Stick Auto w/o Microscopy POC [id number] Follow-up With When Contact Information JOSE ALEJANDRO MICHAUD, MAG Hester, URL In 3 months [address] [place] [address] Additional Instructions: Patient Education Overactive [...] drop(s) Allergies f (more content not included)... [facility] Comment on above: Result Comment: [...] health care provider. General instructions ??? Take znaq-hkv-gehyuln and prescription medicines only as told by [...] drink, and whe (more content not included)... [facility] 10-11-2024 History of Present illness [...] pending biopsy results documented in this encounter [facility] 10-07-2024 History of Present illness Narrative [...] Pulmonology- Dr. Mcclain and Dr. Yoo Cardiology- [facility] Ortho- Dr. Corrales Nephrology- Dr. Sky [...] Chronic kidney disease, stage III (moderate) (HCC) ([facility]) Follows with Dr. Bernard. Monitor CMP, avoid nephrotoxic agents. Morbid obesity with BMI of 40.0-44.9, adult (CMS/[facility]) Discussed with patient their BMI (actual, verses recommended). We have also discussed lifestyle modifications: attempts to perform physical activity as chronic conditions allow, also to monitor dietary intake: increasing protein/fruits/veggies and lowering carb intake (unless contraindicated). Limit sodas, juices, and sugary drinks. Urge incontinence - Primary Relevant Orders Ambulatory referral to Urology Chronic respiratory failure with hypoxia ([facility]) Following closely with Dr. Mcclain. Recent exacerbation [...] referral to Dermatology documented in this encounter [facility] 09-03-2024 Telephone encounter Note Pt requesting a refill on her Omeprazole BECK:08/19/2024 NOV:10/09/2024 [facility] 09-03-2024 Miscellaneous Notes Pt requesting a refill on her Omeprazole BECK:08/19/2024 NOV:10/09/2024 documented in this encounter [facility] 08-22-2024 Telephone encounter Note Patient called in saying you wanted her to do a stool sample, but she has not gotten an order for that, so she wasn't sure when she was supposed to do that. Also her pregabalin needs refilled but she said that kareen had a hard time getting it in last time. MAYANK [facility] 08-22-2024 Miscellaneous Notes Patient called in saying you wanted her to do a stool sample, but she has not gotten an order for that, so she wasn't sure when she was supposed to do that. Also her pregabalin needs refilled but she said that mint had a hard time getting it in [...] spelled that right) nurse phone number is [phone] or you can contact patient she said. MAYANK documented in this encounter [facility] 08-19-2024 History of Present illness Narrative Last Monday left hospital and has been having diarrhea about 6 times a day. Images from the original note were not included. Subjective Patient ID: Diana Champion is a 69 y.o. female who presents for No chief complaint on file.. [facility] Hospital follow up; Was seen at [facility] 08/08/24-08/12/24 ARF; Was discharged home on Azithromycin [...] This Visit Moderate persistent asthma with exacerbation (CMS/[facility]) - Primary Other Visit Diagnoses Diarrhea, unspecified type Relevant Orders Clostridium difficile,EIA documented in this encounter [facility] 08-19-2024 Instructions Aida Reese NP - 08/19/2024 11:30 AM EDT Continue Augmentin. Start taking OTC probiotics Have stool culture completed to test for C.Difficile. If negative continue ATB regimen as directed. If positive we will treat accordingly. Keep all follow up appointments as scheduled. documented in this encounter [facility] 08-13-2024 Note Gram Stain Evaluation This specimen is of good quality and is acceptable for routine [facility] 08-13-[address] [facility] GRAM STAIN EVALUATION bacterial culture. [facility] 08-13-2024 Telephone encounter Note Patient's home health [...] spelled that right) nurse phone number is [phone] or you can contact patient she said. JN [facility] 07-16-2024 Telephone encounter Note Pt informed of lab results and provider recommendations. Pt does do chair exercises four times a week and walks (with walker) but due to her health conditions she is limited. Pt is in a wheelchair with very limited ambulation -SCR [facility] 07-16-2024 Miscellaneous Notes Pt informed of [...] Aida Reese NP documented in this encounter [facility] 07-16-2024 Telephone encounter Note ----- Message [...] 9:29 AM EDT To: Aida Reese NP [facility] 07-11-2024 Note Attestation signed by Emelia [...] Age: 68 y.o. : 1955 Account No.: [id number] HPI Chief Complaint: follow up after recent bronch [...] years. 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 Her family history is positive for COPD [...] was initiated by the patient and conducted gqw-ljsy-su-face with use of audio-only real time telephone [...] by mouth every other day. Historical Provider, tepeghqtpwa-goexzvwtf-txqdrzbs 100-62.5-25 mcg blister with device Historical Provider, [...] (Theragran-M) 9 mg (more content not included)... [facility] 07-11-2024 History of Present illness Narrative Associated Problem(s): Morbid obesity with BMI of 40.0-44.9, adult ([facility]) Discussed with patient their BMI (actual, verses recommended). We have also discussed lifestyle modifications: attempts to perform physical activity as chronic conditions allow, also to monitor dietary intake: increasing protein/fruits/veggies and lowering carb intake (unless contraindicated). Limit sodas, juices, and sugary drinks. Associated Problem(s): Severe persistent asthma without complication ([facility]) Currently taking Trelegy Singulair Albuterol Was seen on 06/12/24 for Hospital follow up. Is following closely with Pulmonology; Tracheobronchomalacia Associated Problem(s): Hyperlipidemia (CMS/HCC) Currently not on any medications: Lifestyle and dietary modifications. Recheck lipid pane today. Associated Problem(s): Chronic heart failure with preserved ejection fraction (CMS/HCC) Follows [facility] Was seen in May 2024 Lasix 20mg Associated Problem(s): Benign essential HTN (CMS/HCC) Currently not taking any medications. Bp is well controlled. Averages 120's-130's. Images from the original note were not included. Subjective Patient ID: Diana Champion is a 68 y.o. female who presents for Follow-up. HPI Specialists: Pulmonology- Dr. Mcclain and Dr. Yoo Cardiology- [facility] Ortho- Dr. Corrales Nephrology- Dr. Sky Was seeing Urology 5 years ago for urinary retention. Now is having mixed incontinence. Does not want referral today, would like to revisit at next visit. Was seen on 06/12/24 for Hospital follow up. Is following closely with Pulmonology; Tracheobronchomalacia HTN: Currently not taking any medications. Bp is well controlled. Averages 120's-130's. [facility] Lasix 20mg [...] with preserved ejection fraction (CMS/HCC) Follow[facility]- [facility] Was seen in May 2024 Lasix 20mg Relevant Orders Comprehensive metabolic panel CBC and differential Hyperlipidemia (CMS/HCC) Currently not on any medications: Lifestyle and dietary modifications. Recheck lipid pane today. Relevant Orders Lipid panel Comprehensive metabolic panel CBC and differential Morbid obesity with BMI of 40.0-44.9, adult (CMS/[facility]) Discussed with patient their BMI (actual, verses recommended). We have also discussed lifestyle modifications: attempts to perform physical activity as chronic conditions allow, also to monitor dietary intake: increasing protein/fruits/veggies and lowering carb intake (unless contraindicated). Limit sodas, juices, and sugary drinks. Relevant Orders Comprehensive metabolic panel CBC and differential Severe persistent asthma without complication ([facility]) Currently taking Trelegy Singulair Albuterol Was seen on 06/12/24 for Hospital follow up. Is following closely with Pulmonology; Tracheobronchomalacia documented in this encounter [facility] 07-11-2024 Instructions Aida Reese NP - 07/11/2024 8:30 AM EDT FASTING labs ordered. Nothing to eat or drink for 12 hours prior to blood draw. Water and black coffee ok. documented in this encounter [facility] 07-02-2024 Note Patient: Yannick Champion Pre-sedation Evaluation: Sedation necessary for: Analgesia Requesting service: Pulmonary History of Present Illness: Refer to H &P SENIOR CLERK/Current Medications: Reviewed Recent sedation/surgery (24 hours): No Review of Systems: Negative NPO guidelines met: Yes Physical Exam: Airway Mallampati: II Neck ROM: full Cardiovascular (-) murmur, friction rub, carotid bruits Dental Pulmonary (+) on nasal cannula (-) tachypnea, accessory muscle use (-) wheezes, rales Plan: ASA 3 Moderate Proceed with consious sedation for Bronchoscopy and BAL [facility] 07-02-2024 Note Attestation signed by Ghulam Petersen MD at 07/08/2024 2:41 PM I was present and supervised the entire procedure PULMONARY & CRITICAL CARE MEDICINE PROCEDURE NOTE FLEXIBLE FIBEROPTIC BRONCHOSCOPY INDICATIONS AND HISTORY: Please refer to H&P PROCEDURE: Flexible Fiberoptic Bronchoscopy with airway inspection ANESTHESIA: Conscious sedation PREPROCEDURE DIAGNOSIS: Recurrent pneumonias, concern for dynamic airway collapse, chronic cough POSTPROCEDURE DIAGNOSIS: Severe tracheobronchomalacia PROCEDURE DRESSED POULTRY GRADER: Goran Canseco ATTENDING PHYSICIAN: Dr. Ghulam Petersen [...] by trained RN and supervised by the Character Actress. Continuous monitoring of heart rate, respiratory rate, [...] 1-2 weeks for treatment options for tracheobronchomalacia [facility] 06-25-2024 Note Attestation signed by Emelia Yoo [...] Age: 68 y.o. : 1955 Account No.: [id number] Referring physician: Dr. Bo Mcclain Chief complaint: Recurreny pneumonia HPI Diana Champion is a 68 y.o. female with PMHx of reportedly COPD, chronic hypoxic respiratory failure on 2L home O2 who is presenting to clinic as a new patient after being referred by Dr. Bo [facility] of [facility]. Patient has been admitted [...] years. 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 Yes Historical Provider, xxexfvtjmys-vucxydire-vdntewre 100-62.5-25 mcg blister with device Yes Historical [...] mEq ER ta (more content not included)... [facility] 05-13-2024 Note [facility] Cardiology Clinic Note Chief Complaint: Patient [...] breath since then. She has seen her digital coordinator. Her chest pain is noncardiac. She has [...] a past medical history of Asthma, Cancer ([facility]), COPD (chronic obstructive pulmonary disease) ([facility]), Coronary artery disease, GERD (gastroesophageal reflux disease), [...] mouth every other day., Disp: , Rfl: emiwnfzepnt-apegzfrmw-rjsxdipq 100-62.5-25 mcg blister with device, , Disp: [...] Examination: GENERAL: a (more content not included)... [facility] 09-07-2023 Evaluation note Encounter Date Diagnosis Assessment Notes Sep, Hypomagnesemia (ICD-10 - E83.42) [facility] Other 10-23-2023 Evaluation note* Encounter Date Diagnosis Assessment Notes Treatment Notes Treatment Clinical Notes Aug, Nico bolden cr kid I-IV (ICD-10 - I12.9) [facility] Other 10-12-2023 Evaluation note* Encounter Date Diagnosis [...] PPI induced GI losses. Continue oral Magnesium [facility] Other 05-19-2023 NotePROCEDURE: XR HIP RT 2 3V W PELVIS HISTORY: Pain in right hip joint , chronic COMPARISON: XR L-spine 02/26/2019, XR left hip with pelvis 03/11/2017 FINDINGS: BONES:Complete loss of the right hip joint space with bpwm-cw-iuqs articulation, subchondral sclerosis and cysts, and large [...] by: STEPH GRANADOS Date: 2023-03-24 12:55[facility]04-27-2023 Evaluation note* Encounter Date Diagnosis Assessment Notes [...] PPI induced GI losses. Continue oral Magnesium [facility] Other 02-02-2023 [facility]* Encounter Date Diagnosis Assessment Notes Treatment Notes Treatment Clinical Notes Nov, Hypokalemia (ICD-10 - E87.6) Nov, Hypomagnesemia (ICD-10 - E83.42) [facility] Other 10-04-2022 Evaluation note* Encounter Date Diagnosis [...] office does not accept her new insurance. [facility] Other 09-02-2022 Evaluation note* Encounter Date Diagnosis Assessment Notes Treatment Notes Treatment Clinical Notes Jul, History of colon cancer (ICD-10 - Z85.038) [facility] Other 01-12-2022 Evaluation note* Encounter Date Diagnosis [...] potassium wasting. I have prescribed oral potassium. [facility] Other 10-25-2021 Evaluation note* Encounter Date Diagnosis [...] in writting by [facility] document [facility] Other Evaluation + Plan note Future Appointments Appointment Date:01/13/2025 09:40:00 AM Scheduled Provider:MAG BLOUNT PA-C Location:[facility] Appointment Type:URO Office Visit Diagnostic Tests Pending * Urine Culture 10/15/[address] [facility] Evaluation + Plan note Future Appointments Appointment Date:01/13/2025 09:40:00 AM Scheduled Provider:MAG BLOUNT PA-C Location:[facility] Appointment Type:URO Office Visit [facility] evaluation + Plan note Future Appointments Appointment Date:06/23/2025 09:40:00 AM Scheduled Provider:MAG BLOUNT PA-C Location:[facility] Appointment Type:URO Office Visit [facility] evaluation + Plan note Future Appointments Appointment Date:07/08/2025 02:30:00 PM Scheduled Provider:Amalia Stephens PA-C Location:[facility] Appointment Type:URO Office Visit [facility] evaluation noteNo [employer] Other Evaluation note* Diagnosis Onset Date Resolution Status History of colon cancer acut e [facility] Work Phone: evaluation note* Diagnosis Onset Date Resolution Status Hypokalemia acute Hypomagnesemia acute Stage 3 chronic kidney disease acute COVID noneactive Pneumonia noneactive [facility] Work Phone: evaluation note* Diagnosis Moderate persistent asthma with exacerbation ([facility]/HCC)- Primary Unspecified asthma, with exacerbation Non-recurrent acute suppurative otitis media of both ears without spontaneous rupture of tympanic membranes Colorectal cancer ([facility]) Malignant neoplasm of colon, unspecified site Chronic heart failure with preserved ejection fraction ([facility]) Pulmonary emphysema, unspecified emphysema type ([facility]/HCC) Moderate episode of recurrent major depressive disorder ([facility]/HCC)- Primary Moderate persistent asthma with exacerbation ([facility]) Unspecified asthma, with exacerbation Medicare annual wellness visit, subsequent Severe persistent asthma with acute exacerbation ([facility])- Primary Hospital discharge follow-up Other follow-up examination Severe persistent asthma without complication ([facility]/HCC)- Primary Essential hypertension ([facility]/HCC) Unspecified essential hypertension JEANNE (acute kidney injury) ([facility]) Leukocytosis, unspecified type Chronic respiratory failure with hypoxia ([facility]) Chronic bilateral low back pain without sciatica- Primary Vitamin D deficiency Chronic bilateral low back pain without sciatica- Primary Pneumonia due to infectious organism, unspecified laterality, unspecified part of lung- Primary Screening mammogram for breast cancer Chronic respiratory failure with hypoxia ([facility]) Pulmonary emphysema, unspecified emphysema type ([facility]/HCC) Essential hypertension ([facility]) Unspecified essential hypertension Morbid obesity with BMI of 40.0-44.9, adult ([facility]) Hospital discharge follow-up- Primary Other follow-up examination Chronic respiratory failure with hypoxia ([facility]/HCC) Severe persistent asthma without complication ([facility]/HCC) Severe persistent asthma with acute exacerbation ([facility]/HCC)- Primary Severe persistent asthma with exacerbation ([facility]/HCC)- Primary Unspecified asthma, with exacerbation Hospital discharge follow-up- Primary Other follow-up examination Chronic respiratory failure with hypoxia ([facility])- Primary Hospital discharge follow-up Other follow-up examination Benign essential HTN ([facility]/HCC) Chronic heart failure with preserved ejection fraction (CMS/HCC) Severe persistent asthma without complication (CMS/HCC) Moderate mixed hyperlipidemia not requiring statin therapy ([facility]) Morbid obesity with BMI of 40.0-44.9, adult ([facility]) Opioid use Chronic, continuous use of opioids Chronic back pain greater than 3 months duration Moderate persistent asthma with exacerbation ([facility])- Primary Unspecified asthma, with exacerbation Diarrhea, unspecified type documented in this encounter [facility]* Diagnosis Moderate persistent asthma with exacerbation ([facility]/HCC)- Primary Unspecified asthma, with exacerbation Non-recurrent acute suppurative otitis media of both ears without spontaneous rupture of tympanic membranes Colorectal cancer ([facility]) Malignant neoplasm of colon, unspecified site Chronic heart failure with preserved ejection fraction ([facility]) Pulmonary emphysema, unspecified emphysema type ([facility]/HCC) Moderate episode of recurrent major depressive disorder ([facility])- Primary Moderate persistent asthma with exacerbation ([facility]) Unspecified asthma, with exacerbation Medicare annual wellness visit, subsequent Severe persistent asthma with acute exacerbation ([facility])- Primary Hospital discharge follow-up Other follow-up examination Severe persistent asthma without complication ([facility]/HCC)- Primary Essential hypertension ([facility]/HCC) Unspecified essential hypertension JEANNE (acute kidney injury) ([facility]) Leukocytosis, unspecified type Chronic respiratory failure with hypoxia ([facility]) Chronic bilateral low back pain without sciatica- Primary Vitamin D deficiency Chronic bilateral low back pain without sciatica- Primary Pneumonia due to infectious organism, unspecified laterality, unspecified part of lung- Primary Screening mammogram for breast cancer Chronic respiratory failure with hypoxia ([facility]) Pulmonary emphysema, unspecified emphysema type ([facility]/HCC) Essential hypertension ([facility]) Unspecified essential hypertension Morbid obesity with BMI of 40.0-44.9, adult ([facility]) Hospital discharge follow-up- Primary Other follow-up examination Chronic respiratory failure with hypoxia ([facility]/HCC) Severe persistent asthma without complication ([facility]/HCC) Severe persistent asthma with acute exacerbation ([facility]/HCC)- Primary Severe persistent asthma with exacerbation ([facility]/HCC)- Primary Unspecified asthma, with exacerbation Hospital discharge follow-up- Primary Other follow-up examination Chronic respiratory failure with hypoxia ([facility]/HCC)- Primary Hospital discharge follow-up Other follow-up examination Benign essential HTN ([facility]/HCC) Chronic heart failure with preserved ejection fraction (CMS/HCC) Severe persistent asthma without complication (CMS/HCC) Moderate mixed hyperlipidemia not requiring statin therapy ([facility]/HCC) Morbid obesity with BMI of 40.0-44.9, adult ([facility]) Opioid use Chronic, continuous use of opioids Chronic back pain greater than 3 months duration Restless leg syndrome Restless legs syndrome (RLS) documented in this encounter [facility] HealthcareEvaluation note* Diagnosis Moderate persistent asthma with exacerbation ([facility]/HCC)- Primary Unspecified asthma, with exacerbation Non-recurrent acute suppurative otitis media of both ears without spontaneous rupture of tympanic membranes Colorectal cancer ([facility]) Malignant neoplasm of colon, unspecified site Chronic heart failure with preserved ejection fraction ([facility]/HCC) Pulmonary emphysema, unspecified emphysema type ([facility]) Moderate episode of recurrent major depressive disorder ([facility])- Primary Moderate persistent asthma with exacerbation ([facility]) Unspecified asthma, with exacerbation Medicare annual wellness visit, subsequent Severe persistent asthma with acute exacerbation ([facility]/HCC)- Primary Hospital discharge follow-up Other follow-up examination Severe persistent asthma without complication ([facility]/HCC)- Primary Essential hypertension ([facility]/HCC) Unspecified essential hypertension JEANNE (acute kidney injury) ([facility]) Leukocytosis, unspecified type Chronic respiratory failure with hypoxia ([facility]/HCC) Chronic bilateral low back pain without sciatica- Primary Vitamin D deficiency Chronic bilateral low back pain without sciatica- Primary Pneumonia due to infectious organism, unspecified laterality, unspecified part of lung- Primary Screening mammogram for breast cancer Chronic respiratory failure with hypoxia (CMS/HCC) Pulmonary emphysema, unspecified emphysema type ([facility]/HCC) Essential hypertension ([facility]/HCC) Unspecified essential hypertension Morbid obesity with BMI of 40.0-44.9, adult ([facility]) Hospital discharge follow-up- Primary Other follow-up examination Chronic respiratory failure with hypoxia (CMS/HCC) Severe persistent asthma without complication (CMS/HCC) Severe persistent asthma with acute exacerbation (CMS/HCC)- Primary Severe persistent asthma with exacerbation ([facility]/HCC)- Primary Unspecified asthma, with exacerbation Hospital discharge follow-up- Primary Other follow-up examination Chronic respiratory failure with hypoxia (CMS/HCC)- Primary Hospital discharge follow-up Other follow-up examination Benign essential HTN (CMS/HCC) Chronic heart failure with preserved ejection fraction ([facility]/HCC) Severe persistent asthma without complication ([facility]/HCC) Moderate mixed hyperlipidemia not requiring statin therapy (CMS/HCC) Morbid obesity with BMI of 40.0-44.9, adult ([facility]) Opioid use Chronic, continuous use of opioids Chronic back pain greater than 3 months duration Gastroesophageal reflux disease without esophagitis Esophageal reflux documented in this encounter [facility] HealthcareEvaluation noteNo assessment information availableC[facility] Work Phone: Evaluation note* Diagnosis Moderate persistent asthma with exacerbation ([facility]/HCC)- Primary Unspecified asthma, with exacerbation Non-recurrent acute suppurative otitis media of both ears without spontaneous rupture of tympanic membranes Colorectal cancer ([facility]/HCC) Malignant neoplasm of colon, unspecified site Chronic heart failure with preserved ejection fraction ([facility]/HCC) Pulmonary emphysema, unspecified emphysema type ([facility]/HCC) Moderate episode of recurrent major depressive disorder ([facility]/HCC)- Primary Moderate persistent asthma with exacerbation ([facility]/HCC) Unspecified asthma, with exacerbation Medicare annual wellness visit, subsequent Severe persistent asthma with acute exacerbation ([facility]/HCC)- Primary Hospital discharge follow-up Other follow-up examination Severe persistent asthma without complication (CMS/HCC)- Primary Essential hypertension ([facility]/HCC) Unspecified essential hypertension JEANNE (acute kidney injury) ([facility]/HCC) Leukocytosis, unspecified type Chronic respiratory failure with hypoxia ([facility]/HCC) Chronic bilateral low back pain without sciatica- Primary Vitamin D deficiency Chronic bilateral low back pain without sciatica- Primary Pneumonia due to infectious organism, unspecified laterality, unspecified part of lung- Primary Screening mammogram for breast cancer Chronic respiratory failure with hypoxia (CMS/HCC) Pulmonary emphysema, unspecified emphysema type (CMS/HCC) Essential hypertension ([facility]/HCC) Unspecified essential hypertension Morbid obesity with BMI of 40.0-44.9, adult ([facility]) Hospital discharge follow-up- Primary Other follow-up examination Chronic respiratory failure with hypoxia (CMS/HCC) Severe persistent asthma without complication (CMS/HCC) Severe persistent asthma with acute exacerbation (CMS/HCC)- Primary Severe persistent asthma with exacerbation ([facility]/HCC)- Primary Unspecified asthma, with exacerbation Hospital discharge follow-up- Primary Other follow-up examination Chronic respiratory failure with hypoxia (CMS/HCC)- Primary Hospital discharge follow-up Other follow-up examination Benign essential HTN (CMS/HCC) Chronic heart failure with preserved ejection fraction (CMS/HCC) Severe persistent asthma without complication (CMS/HCC) Moderate mixed hyperlipidemia not requiring statin therapy ([facility]) Morbid obesity with BMI of 40.0-44.9, adult ([facility]) Opioid use Chronic, continuous use of opioids Chronic back pain greater than 3 months duration Vaginal guero- Primary Candidiasis of vulva and vagina documented in this encounter [facility] HealthcareEvaluation note* Diagnosis Moderate persistent asthma with exacerbation (CMS/HCC)- Primary Unspecified asthma, with exacerbation Non-recurrent acute suppurative otitis media of both ears without spontaneous rupture of tympanic membranes Colorectal cancer ([facility]) Malignant neoplasm of colon, unspecified site Chronic heart failure with preserved ejection fraction ([facility]/HCC) Pulmonary emphysema, unspecified emphysema type ([facility]/HCC) Moderate episode of recurrent major depressive disorder ([facility])- Primary Moderate persistent asthma with exacerbation ([facility]) Unspecified asthma, with exacerbation Medicare annual wellness visit, subsequent Severe persistent asthma with acute exacerbation ([facility]/HCC)- Primary Hospital discharge follow-up Other follow-up examination Severe persistent asthma without complication (CMS/HCC)- Primary Essential hypertension ([facility]) Unspecified essential hypertension JEANNE (acute kidney injury) ([facility]) Leukocytosis, unspecified type Chronic respiratory failure with hypoxia ([facility]/HCC) Chronic bilateral low back pain without sciatica- Primary Vitamin D deficiency Chronic bilateral low back pain without sciatica- Primary Pneumonia due to infectious organism, unspecified laterality, unspecified part of lung- Primary Screening mammogram for breast cancer Chronic respiratory failure with hypoxia (/HCC) Pulmonary emphysema, unspecified emphysema type ([facility]/HCC) Essential hypertension ([facility]/HCC) Unspecified essential hypertension Morbid obesity with BMI of 40.0-44.9, adult ([facility]) Hospital discharge follow-up- Primary Other follow-up examination Chronic respiratory failure with hypoxia (CMS/HCC) Severe persistent asthma without complication (CMS/HCC) Severe persistent asthma with acute exacerbation ([facility]/HCC)- Primary Severe persistent asthma with exacerbation ([facility]/HCC)- Primary Unspecified asthma, with exacerbation Hospital discharge follow-up- Primary Other follow-up examination Chronic respiratory failure with hypoxia ([facility])- Primary Hospital discharge follow-up Other follow-up examination Benign essential HTN ([facility]) Chronic heart failure with preserved ejection fraction ([facility]) Severe persistent asthma without complication ([facility] Moderate mixed hyperlipidemia not requiring statin therapy ([facility]) Morbid obesity with BMI of 40.0-44.9, adult ([facility]) Opioid use Chronic, continuous use of opioids Chronic back pain greater than 3 months duration Restless leg syndrome Restless legs syndrome (RLS) documented in this encounter [facility] HealthcareEvaluation note* Diagnosis Moderate persistent asthma with exacerbation ([facility]/HCC)- Primary Unspecified asthma, with exacerbation Non-recurrent acute suppurative otitis media of both ears without spontaneous rupture of tympanic membranes Colorectal cancer ([facility]) Malignant neoplasm of colon, unspecified site Chronic heart failure with preserved ejection fraction ([facility]) Pulmonary emphysema, unspecified emphysema type ([facility]) Moderate episode of recurrent major depressive disorder ([facility])- Primary Moderate persistent asthma with exacerbation ([facility]) Unspecified asthma, with exacerbation Medicare annual wellness visit, subsequent Severe persistent asthma with acute exacerbation ([facility])- Primary Hospital discharge follow-up Other follow-up examination Severe persistent asthma without complication ([facility]/HCC)- Primary Essential hypertension ([facility] Unspecified essential hypertension JEANNE (acute kidney injury) ([facility]) Leukocytosis, unspecified type Chronic respiratory failure with hypoxia ([facility]) Chronic bilateral low back pain without sciatica- Primary Vitamin D deficiency Chronic bilateral low back pain without sciatica- Primary Pneumonia due to infectious organism, unspecified laterality, unspecified part of lung- Primary Screening mammogram for breast cancer Chronic respiratory failure with hypoxia ([facility]) Pulmonary emphysema, unspecified emphysema type ([facility]) Essential hypertension ([facility]) Unspecified essential hypertension Morbid obesity with BMI of 40.0-44.9, adult ([facility]) Hospital discharge follow-up- Primary Other follow-up examination Chronic respiratory failure with hypoxia ([facility]) Severe persistent asthma without complication ([facility]/HCC) Severe persistent asthma with acute exacerbation ([facility]/HCC)- Primary Severe persistent asthma with exacerbation ([facility]/HCC)- Primary Unspecified asthma, with exacerbation Hospital discharge follow-up- Primary Other follow-up examination Chronic respiratory failure with hypoxia (CMS/HCC)- Primary Hospital discharge follow-up Other follow-up examination Benign essential HTN (CMS/HCC) Chronic heart failure with preserved ejection fraction (CMS/HCC) Severe persistent asthma without complication (CMS/HCC) Moderate mixed hyperlipidemia not requiring statin therapy (CMS/HCC) Morbid obesity with BMI of 40.0-44.9, adult ([facility]) Opioid use Chronic, continuous use of opioids Chronic back pain greater than 3 months duration Urge incontinence- Primary Morbid obesity with BMI of 40.0-44.9, adult ([facility]) 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 Stage 3a chronic kidney disease (HCC) (CMS/HCC) Chronic respiratory failure with hypoxia (CMS/HCC) documented in this encounter [facility] HealthcareEvaluation note* Diagnosis Moderate persistent asthma with exacerbation (CMS/HCC)- Primary Unspecified asthma, with exacerbation Non-recurrent acute suppurative otitis media of both ears without spontaneous rupture of tympanic membranes Colorectal cancer ([facility]/HCC) Malignant neoplasm of colon, unspecified site Chronic heart failure with preserved ejection fraction (CMS/HCC) Pulmonary emphysema, unspecified emphysema type (CMS/HCC) Moderate episode of recurrent major depressive disorder (CMS/HCC)- Primary Moderate persistent asthma with exacerbation ([facility]/HCC) Unspecified asthma, with exacerbation Medicare annual wellness visit, subsequent Severe persistent asthma with acute exacerbation ([facility]/HCC)- Primary Hospital discharge follow-up Other follow-up examination [...] Morbid obesity with BMI of 40.0-44.9, adult ([facility]) Hospital discharge follow-up- Primary Other follow-up examination [...] Morbid obesity with BMI of 40.0-44.9, adult ([facility]) 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 Stage 3a chronic kidney disease (HCC) ([facility]/HCC) Chronic respiratory failure with hypoxia (CMS/HCC) Neoplasm of unspecified behavior of bone, soft tissue, and skin- Primary documented in this encounter [facility] HealthcareEvaluation note* Diagnosis Moderate persistent asthma with exacerbation (CMS/HCC)- Primary Unspecified asthma, with exacerbation Non-recurrent acute suppurative otitis media of both ears without spontaneous rupture of tympanic membranes Colorectal cancer ([facility]/HCC) Malignant neoplasm of colon, unspecified site Chronic heart failure with preserved ejection fraction (CMS/HCC) Pulmonary emphysema, unspecified emphysema type (CMS/HCC) Moderate episode of recurrent major depressive disorder (CMS/HCC)- Primary Moderate persistent asthma with exacerbation (CMS/HCC) Unspecified asthma, with exacerbation Medicare annual wellness visit, subsequent Severe persistent asthma with acute exacerbation ([facility]/HCC)- Primary Hospital discharge follow-up Other follow-up examination [...] Morbid obesity with BMI of 40.0-44.9, adult ([facility]) 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 Stage 3a chronic kidney disease (HCC) ([facility]/HCC) Chronic respiratory failure with hypoxia (CMS/HCC) Urge incontinence documented in this encounter [facility]Evaluation note* [...] (CMS/HCC)- Primary Moderate persistent asthma with exacerbation ([facility]/HCC) Unspecified asthma, with exacerbation Medicare annual wellness [...] Morbid obesity with BMI of 40.0-44.9, adult ([facility]) Opioid use Chronic, continuous use of opioids Chronic back pain greater than 3 months duration Urge incontinence- Primary Morbid obesity with BMI of 40.0-44.9, adult ([facility]) 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 Stage 3a chronic kidney disease (HCC) (CMS/HCC) Chronic respiratory failure with hypoxia (CMS/HCC) Moderate episode of recurrent major depressive disorder (CMS/HCC) documented in this encounter [facility]Evaluation note* Diagnosis Benign essential HTN (CMS/HCC)- Primary Chronic heart failure with preserved ejection fraction (CMS/HCC) Severe persistent asthma without complication (CMS/HCC) Moderate mixed hyperlipidemia not requiring statin therapy (CMS/HCC) Morbid obesity with BMI of 40.0-44.9, adult ([facility]) documented in this encounter [facility]Evaluation note* Diagnosis Chronic bilateral low back pain without sciatica documented in this encounter [facility]* Diagnosis Moderate episode of recurrent major depressive disorder (HCC) (CMS/HCC) Urge incontinence documented in this encounter [facility]Evaluation [facility]* [...] (CMS/HCC)- Primary Moderate persistent asthma with exacerbation ([facility]/HCC) Unspecified asthma, with exacerbation Medicare annual wellness visit, subsequent Severe persistent asthma with acute exacerbation ([facility]/HCC)- Primary Hospital discharge follow-up Other follow-up examination Severe persistent asthma without complication (CMS/HCC)- Primary Essential hypertension ([facility]/HCC) Unspecified essential hypertension JEANNE (acute kidney injury) ([facility]) Leukocytosis, unspecified type Chronic respiratory failure with hypoxia ([facility]) Chronic bilateral low back pain without sciatica- Primary Vitamin D deficiency Chronic bilateral low back pain without sciatica- Primary Pneumonia due to infectious organism, unspecified laterality, unspecified part of lung- Primary Screening mammogram for breast cancer Chronic respiratory failure with hypoxia ([facility]) Pulmonary emphysema, unspecified emphysema type ([facility]) Essential hypertension ([facility]) Unspecified essential hypertension Morbid obesity with BMI of 40.0-44.9, adult ([facility]) Hospital discharge follow-up- Primary Other follow-up examination Chronic respiratory failure with hypoxia ([facility]/HCC) Severe persistent asthma without complication ([facility]) Severe persistent asthma with acute exacerbation ([facility]/HCC)- Primary Severe persistent asthma with exacerbation ([facility]/HCC)- Primary Unspecified asthma, with exacerbation Hospital discharge follow-up- Primary Other follow-up examination Chronic respiratory failure with hypoxia ([facility])- Primary Hospital discharge follow-up Other follow-up examination Benign essential HTN ([facility]) Chronic heart failure with preserved ejection fraction ([facility]/HCC) Severe persistent asthma without complication ([facility]/HCC) Moderate mixed hyperlipidemia not requiring statin therapy ([facility]) Morbid obesity with BMI of 40.0-44.9, adult ([facility]) Opioid use Chronic, continuous use of opioids Chronic back pain greater than 3 months duration Urge incontinence- Primary Morbid obesity with BMI of 40.0-44.9, adult ([facility]) 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 Stage 3a chronic kidney disease (HCC) ([facility]) Chronic respiratory failure with hypoxia ([facility]) Moderate episode of recurrent major depressive disorder ([facility]) Restless leg syndrome Restless legs syndrome (RLS) documented in this encounter [facility]* Diagnosis Moderate persistent asthma with exacerbation ([facility]/HCC)- Primary Unspecified asthma, with exacerbation Non-recurrent acute [...] Morbid obesity with BMI of 40.0-44.9, adult ([facility]) Hospital discharge follow-up- Primary Other follow-up examination [...] Morbid obesity with BMI of 40.0-44.9, adult ([facility]) Opioid use Chronic, continuous use of opioids Chronic back pain greater than 3 months duration Urge incontinence- Primary Morbid obesity with BMI of 40.0-44.9, adult ([facility]/HCC) 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 Stage 3a chronic kidney disease (HCC) (CMS/HCC) Chronic respiratory failure with hypoxia ([facility]/HCC) Chronic obstructive pulmonary disease with acute lower respiratory infection ([facility]/HCC)- Primary Primary HSV infection of mouth documented in this encounter [facility]* [...] Unspecified essential hypertension JEANNE (acute kidney injury) ([facility]) Leukocytosis, unspecified type Chronic respiratory failure with hypoxia (CMS/HCC) Chronic bilateral low back pain without sciatica- Primary Vitamin D deficiency Chronic bilateral low back pain without sciatica- Primary Pneumonia due to infectious organism, unspecified laterality, unspecified part of lung- Primary Screening mammogram for breast cancer Chronic respiratory failure with hypoxia (CMS/HCC) Pulmonary emphysema, unspecified emphysema type (CMS/HCC) Essential hypertension ([facility]/HCC) Unspecified essential hypertension Morbid obesity with BMI of 40.0-44.9, adult ([facility]) Hospital discharge follow-up- Primary Other follow-up examination Chronic respiratory failure with hypoxia (CMS/HCC) Severe persistent asthma without complication (CMS/HCC) Severe persistent asthma with acute exacerbation (CMS/HCC)- Primary Severe persistent asthma with exacerbation ([facility]/HCC)- Primary Unspecified asthma, with exacerbation Hospital discharge follow-up- Primary Other follow-up examination Chronic respiratory failure with hypoxia (CMS/HCC)- Primary Hospital discharge follow-up Other follow-up examination Benign essential HTN (CMS/HCC) Chronic heart failure with preserved ejection fraction (CMS/HCC) Severe persistent asthma without complication (CMS/HCC) Moderate mixed hyperlipidemia not requiring statin therapy ([facility]/HCC) Morbid obesity with BMI of 40.0-44.9, adult ([facility]) Opioid use Chronic, continuous use of opioids Chronic back pain greater than 3 months duration Urge incontinence- Primary Morbid obesity with BMI of 40.0-44.9, adult ([facility]) 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 Stage 3a chronic kidney disease (HCC) (CMS/HCC) Chronic respiratory failure with hypoxia (CMS/HCC) Chronic obstructive pulmonary disease with acute lower respiratory infection (CMS/HCC)- Primary Primary HSV infection of mouth Pulmonary emphysema, unspecified emphysema type (CMS/HCC)- Primary documented in this encounter [facility]* Diagnosis Moderate persistent asthma with [...] emphysema, unspecified emphysema type (CMS/HCC) Essential hypertension ([facility]/HCC) Unspecified essential hypertension Morbid obesity with BMI of 40.0-44.9, adult ([facility]) Hospital discharge follow-up- Primary Other follow-up examination Chronic respiratory failure with hypoxia (CMS/HCC) Severe persistent asthma without complication (CMS/HCC) Severe persistent asthma with acute exacerbation (CMS/HCC)- Primary Severe persistent asthma with exacerbation ([facility]/HCC)- Primary Unspecified asthma, with exacerbation Hospital discharge follow-up- Primary Other follow-up examination Chronic respiratory failure with hypoxia (CMS/HCC)- Primary Hospital discharge follow-up Other follow-up examination Benign essential HTN (CMS/HCC) Chronic heart failure with preserved ejection fraction (CMS/HCC) Severe persistent asthma without complication (CMS/HCC) Moderate mixed hyperlipidemia not requiring statin therapy ([facility]/HCC) Morbid obesity with BMI of 40.0-44.9, adult ([facility]) Opioid use Chronic, continuous use of opioids Chronic back pain greater than 3 months duration Urge incontinence- Primary Morbid obesity with BMI of 40.0-44.9, adult ([facility]) 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 Stage 3a chronic kidney disease (HCC) ([facility]/HCC) Chronic respiratory failure with hypoxia ([facility]) Chronic obstructive pulmonary disease with acute lower respiratory infection ([facility])- Primary Primary HSV infection of mouth Pulmonary emphysema, unspecified emphysema type ([facility]/HCC)- Primary Gastroesophageal reflux disease without esophagitis Esophageal reflux documented in this encounter [facility]* Diagnosis Moderate persistent asthma with exacerbation ([facility]/HCC)- Primary Unspecified asthma, with exacerbation Non-recurrent acute suppurative otitis media of both ears without spontaneous rupture of tympanic membranes Colorectal cancer ([facility]) Malignant neoplasm of colon, unspecified site Chronic heart failure with preserved ejection fraction ([facility]) Pulmonary emphysema, unspecified emphysema type ([facility]/HCC) Moderate episode of recurrent major depressive disorder ([facility])- Primary Moderate persistent asthma with exacerbation ([facility]) Unspecified asthma, with exacerbation Medicare annual wellness visit, subsequent Severe persistent asthma with acute exacerbation ([facility]/HCC)- Primary Hospital discharge follow-up Other follow-up examination Severe persistent asthma without complication (CMS/HCC)- Primary Essential hypertension ([facility]/HCC) Unspecified essential hypertension JEANNE (acute kidney injury) ([facility]) Leukocytosis, unspecified type Chronic respiratory failure with hypoxia (CMS/HCC) Chronic bilateral low back pain without sciatica- Primary Vitamin D deficiency Chronic bilateral low back pain without sciatica- Primary Pneumonia due to infectious organism, unspecified laterality, unspecified part of lung- Primary Screening mammogram for breast cancer Chronic respiratory failure with hypoxia (CMS/HCC) Pulmonary emphysema, unspecified emphysema type ([facility]/HCC) Essential hypertension ([facility]/HCC) Unspecified essential hypertension Morbid obesity with BMI of 40.0-44.9, adult ([facility]) Hospital discharge follow-up- Primary Other follow-up examination Chronic respiratory failure with hypoxia (CMS/HCC) Severe persistent asthma without complication (CMS/HCC) Severe persistent asthma with acute exacerbation (CMS/HCC)- Primary Severe persistent asthma with exacerbation ([facility]/HCC)- Primary Unspecified asthma, with exacerbation Hospital discharge follow-up- Primary Other follow-up examination Chronic respiratory failure with hypoxia (CMS/HCC)- Primary Hospital discharge follow-up Other follow-up examination Benign essential HTN ([facility]) Chronic heart failure with preserved ejection fraction ([facility]) Severe persistent asthma without complication ([facility]) Moderate mixed hyperlipidemia not requiring statin therapy ([facility]) Morbid obesity with BMI of 40.0-44.9, adult ([facility]) Opioid use Chronic, continuous use of opioids Chronic back pain greater than 3 months duration Urge incontinence- Primary Morbid obesity with BMI of 40.0-44.9, adult ([facility]) 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 Stage 3a chronic kidney disease (HCC) ([facility] Chronic respiratory failure with hypoxia ([facility]) Chronic obstructive pulmonary disease with acute lower respiratory infection ([facility])- Primary Primary HSV infection of mouth Pulmonary emphysema, unspecified emphysema type ([facility])- Primary Restless leg syndrome Restless legs syndrome (RLS) documented in this encounter [facility]* Diagnosis Moderate persistent asthma with exacerbation ([facility])- Primary Unspecified asthma, with exacerbation Non-recurrent acute suppurative otitis media of both ears without spontaneous rupture of tympanic membranes Colorectal cancer ([facility]) Malignant neoplasm of colon, unspecified site Chronic heart failure with preserved ejection fraction ([facility]) Pulmonary emphysema, unspecified emphysema type ([facility]) Moderate episode of recurrent major depressive disorder ([facility])- Primary Moderate persistent asthma with exacerbation ([facility]) Unspecified asthma, with exacerbation Medicare annual wellness visit, subsequent Severe persistent asthma with acute exacerbation ([facility])- Primary Hospital discharge follow-up Other follow-up examination Severe persistent asthma without complication ([facility])- Primary Essential hypertension ([facility] Unspecified essential hypertension JEANNE (acute kidney injury) ([facility]) Leukocytosis, unspecified type Chronic respiratory failure with hypoxia ([facility]) Chronic bilateral low back pain without sciatica- Primary Vitamin D deficiency Chronic bilateral low back pain without sciatica- Primary Pneumonia due to infectious organism, unspecified laterality, unspecified part of lung- Primary Screening mammogram for breast cancer Chronic respiratory failure with hypoxia ([facility]) Pulmonary emphysema, unspecified emphysema type ([facility]/HCC) Essential hypertension ([facility]) Unspecified essential hypertension Morbid obesity with BMI of 40.0-44.9, adult ([facility]) Hospital discharge follow-up- Primary Other follow-up examination Chronic respiratory failure with hypoxia (CMS/HCC) Severe persistent asthma without complication (CMS/HCC) Severe persistent asthma with acute exacerbation (CMS/HCC)- Primary Severe persistent asthma with exacerbation ([facility]/HCC)- Primary Unspecified asthma, with exacerbation Hospital discharge follow-up- Primary Other follow-up examination Chronic respiratory failure with hypoxia (CMS/HCC)- Primary Hospital discharge follow-up Other follow-up examination Benign essential HTN ([facility]/HCC) Chronic heart failure with preserved ejection fraction ([facility]/HCC) Severe persistent asthma without complication (CMS/HCC) Moderate mixed hyperlipidemia not requiring statin therapy (CMS/HCC) Morbid obesity with BMI of 40.0-44.9, adult ([facility]) Opioid use Chronic, continuous use of opioids Chronic back pain greater than 3 months duration Urge incontinence- Primary Morbid obesity with BMI of 40.0-44.9, adult ([facility]) 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 Stage 3a chronic kidney disease (HCC) ([facility]) Chronic respiratory failure with hypoxia ([facility]) Chronic obstructive pulmonary disease with acute lower respiratory infection ([facility])- Primary Primary HSV infection of mouth Pulmonary emphysema, unspecified emphysema type ([facility]/HCC)- Primary Nevus lipomatosus cutaneus superficialis- Primary Lipoma of other skin and subcutaneous tissue Squamous cell carcinoma of skin of chest documented in this encounter [facility] HealthcareEvaluation note* Diagnosis Moderate persistent asthma with exacerbation ([facility]/HCC)- Primary Unspecified asthma, with exacerbation Non-recurrent acute suppurative otitis media of both ears without spontaneous rupture of tympanic membranes Colorectal cancer ([facility]) Malignant neoplasm of colon, unspecified site Chronic heart failure with preserved ejection fraction ([facility]/HCC) Pulmonary emphysema, unspecified emphysema type ([facility]/HCC) Moderate episode of recurrent major depressive disorder ([facility]/HCC)- Primary Moderate persistent asthma with exacerbation ([facility]/HCC) Unspecified asthma, with exacerbation Medicare annual wellness visit, subsequent Severe persistent asthma with acute exacerbation ([facility]/HCC)- Primary Hospital discharge follow-up Other follow-up examination Severe persistent asthma without complication ([facility]/HCC)- Primary Essential hypertension ([facility]/HCC) Unspecified essential hypertension JEANNE (acute kidney injury) ([facility]) Leukocytosis, unspecified type Chronic respiratory failure with hypoxia ([facility]/HCC) Chronic bilateral low back pain without sciatica- Primary Vitamin D deficiency Chronic bilateral low back pain without sciatica- Primary Pneumonia due to infectious organism, unspecified laterality, unspecified part of lung- Primary Screening mammogram for breast cancer Chronic respiratory failure with hypoxia (CMS/HCC) Pulmonary emphysema, unspecified emphysema type (CMS/HCC) Essential hypertension (CMS/HCC) Unspecified essential hypertension Morbid obesity with BMI of 40.0-44.9, adult ([facility]) Hospital discharge follow-up- Primary Other follow-up examination [...] Moderate mixed hyperlipidemia not requiring statin therapy ([facility]) Morbid obesity with BMI of 40.0-44.9, adult ([facility]) Opioid use Chronic, continuous use of opioids Chronic back pain greater than 3 months duration Urge incontinence- Primary Morbid obesity with BMI of 40.0-44.9, adult ([facility]) 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 Stage 3a chronic kidney disease (HCC) ([facility]) Chronic respiratory failure with hypoxia ([facility]/HCC) Chronic obstructive pulmonary disease with acute lower respiratory infection ([facility]/HCC)- Primary Primary HSV infection of mouth Pulmonary emphysema, unspecified emphysema type ([facility]/HCC)- Primary Moderate episode of recurrent major depressive disorder ([facility]) Acute pain of right knee- Primary History of total right knee replacement documented in this encounter [facility] HealthcareEvaluation note* Diagnosis Moderate persistent asthma [...] Morbid obesity with BMI of 40.0-44.9, adult ([facility]) Hospital discharge follow-up- Primary Other follow-up examination Chronic respiratory failure with hypoxia (CMS/HCC) Severe persistent asthma without complication (CMS/HCC) Severe persistent asthma with acute exacerbation (CMS/HCC)- Primary Severe persistent asthma with exacerbation ([facility]/HCC)- Primary Unspecified asthma, with exacerbation Hospital discharge follow-up- Primary Other follow-up examination Chronic respiratory failure with hypoxia (CMS/HCC)- Primary Hospital discharge follow-up Other follow-up examination Benign essential HTN (CMS/HCC) Chronic heart failure with preserved ejection fraction (CMS/HCC) Severe persistent asthma without complication (CMS/HCC) Moderate mixed hyperlipidemia not requiring statin therapy ([facility]/HCC) Morbid obesity with BMI of 40.0-44.9, adult ([facility]) Opioid use Chronic, continuous use of opioids Chronic back pain greater than 3 months duration Urge incontinence- Primary Morbid obesity with BMI of 40.0-44.9, adult ([facility]) 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 Stage 3a chronic kidney disease (HCC) ([facility]/HCC) Chronic respiratory failure with hypoxia (CMS/HCC) Chronic obstructive pulmonary disease with acute lower respiratory infection ([facility]/HCC)- Primary Primary HSV infection of mouth Pulmonary emphysema, unspecified emphysema type (CMS/HCC)- Primary Acute pain of right knee- Primary History of total right knee replacement Right hip pain Pain in joint, pelvic region and thigh Arthritis of right hip documented in this encounter [facility]* Diagnosis Moderate persistent asthma with [...] Morbid obesity with BMI of 40.0-44.9, adult ([facility]) Hospital discharge follow-up- Primary Other follow-up examination [...] Morbid obesity with BMI of 40.0-44.9, adult ([facility]) Opioid use Chronic, continuous use of opioids Chronic back pain greater than 3 months duration Urge incontinence- Primary Morbid obesity with BMI of 40.0-44.9, adult ([facility]) 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 Stage 3a chronic kidney disease (HCC) (CMS/HCC) Chronic respiratory failure with hypoxia (CMS/HCC) Chronic obstructive pulmonary disease with acute lower respiratory infection ([facility]/HCC)- Primary Primary HSV infection of mouth Pulmonary emphysema, unspecified emphysema type (CMS/HCC)- Primary Seborrheic keratosis- Primary History of SCC (squamous cell carcinoma) of skin Personal history of other malignant neoplasm of skin Lentigines documented in this encounter [facility]* Diagnosis Moderate episode of recurrent [...] Morbid obesity with BMI of 40.0-44.9, adult ([facility]) Hospital discharge follow-up- Primary Other follow-up examination [...] Morbid obesity with BMI of 40.0-44.9, adult ([facility]/HCC) Opioid use Chronic, continuous use of opioids Chronic back pain greater than 3 months duration Urge incontinence- Primary Morbid obesity with BMI of 40.0-44.9, adult ([facility]/HCC) 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 Stage 3a chronic kidney disease (HCC) (CMS/HCC) Chronic respiratory failure with hypoxia (CMS/HCC) Chronic obstructive pulmonary disease with acute lower respiratory infection (CMS/HCC)- Primary Primary HSV infection of mouth Pulmonary emphysema, unspecified emphysema type (CMS/HCC)- Primary Flu-like symptoms- Primary Morbid (severe) obesity due to excess calories (CMS/HCC) Body mass index (BMI) 40.0-44.9, adult ([facility]/HCC) Pulmonary emphysema, unspecified emphysema type (CMS/HCC) Chronic respiratory failure with hypoxia (CMS/HCC) Essential hypertension (CMS/HCC) Unspecified essential hypertension documented in this encounter [facility] HealthcareEvaluation note* Diagnosis Moderate episode of [...] Morbid obesity with BMI of 40.0-44.9, adult ([facility]) Hospital discharge follow-up- Primary Other follow-up examination [...] Morbid obesity with BMI of 40.0-44.9, adult ([facility]/HCC) Opioid use Chronic, continuous use of opioids Chronic back pain greater than 3 months duration Urge incontinence- Primary Morbid obesity with BMI of 40.0-44.9, adult ([facility]) 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 Stage 3a chronic kidney disease (HCC) (CMS/HCC) Chronic respiratory failure with hypoxia (CMS/HCC) Chronic obstructive pulmonary disease with acute lower respiratory infection (CMS/HCC)- Primary Primary HSV infection of mouth Pulmonary emphysema, unspecified emphysema type (CMS/HCC)- Primary Flu-like symptoms- Primary Morbid (severe) obesity due to excess calories ([facility]) Body mass index (BMI) 40.0-44.9, adult ([facility]) Pulmonary emphysema, unspecified emphysema type (CMS/HCC) Chronic respiratory failure with hypoxia (CMS/HCC) Essential hypertension ([facility]/HCC) Unspecified essential hypertension Pneumonia due to infectious organism, unspecified laterality, unspecified part of lung- Primary documented in this encounter [facility] HealthcareEvaluation note* Diagnosis Moderate episode of recurrent major depressive disorder (CMS/HCC)- Primary Moderate persistent asthma with exacerbation ([facility]) Unspecified asthma, with exacerbation Medicare annual wellness visit, subsequent Severe persistent asthma with acute exacerbation ([facility])- Primary Hospital discharge follow-up Other follow-up examination Severe persistent asthma without complication (CMS/HCC)- Primary Essential hypertension (CMS/HCC) Unspecified essential hypertension JEANNE (acute kidney injury) ([facility]) Leukocytosis, unspecified type Chronic respiratory failure with hypoxia (CMS/HCC) Chronic bilateral low back pain without sciatica- Primary Vitamin D deficiency Chronic bilateral low back pain without sciatica- Primary Pneumonia due to infectious organism, unspecified laterality, unspecified part of lung- Primary Screening mammogram for breast cancer Chronic respiratory failure with hypoxia (CMS/HCC) Pulmonary emphysema, unspecified emphysema type (CMS/HCC) Essential hypertension ([facility]/HCC) Unspecified essential hypertension Morbid obesity with BMI of 40.0-44.9, adult ([facility]) Hospital discharge follow-up- Primary Other follow-up examination Chronic respiratory failure with hypoxia (CMS/HCC) Severe persistent asthma without complication (CMS/HCC) Chronic respiratory failure with hypoxia (CMS/HCC)- Primary Hospital discharge follow-up Other follow-up examination Benign essential HTN (CMS/HCC) Chronic heart failure with preserved ejection fraction (CMS/HCC) Severe persistent asthma without complication (CMS/HCC) Moderate mixed hyperlipidemia not requiring statin therapy ([facility]/HCC) Morbid obesity with BMI of 40.0-44.9, adult ([facility]) Opioid use Chronic, continuous use of opioids [...] Pulmonary emphysema, unspecified emphysema type (CMS/HCC)- Primary Flu-like symptoms- Primary Morbid (severe) obesity due to excess calories (CMS/HCC) Body mass index (BMI) 40.0-44.9, adult (CMS/HCC) Pulmonary emphysema, unspecified emphysema type (CMS/HCC) Chronic respiratory failure with hypoxia (CMS/HCC) Essential hypertension (CMS/HCC) Unspecified essential hypertension Pneumonia due to infectious organism, unspecified laterality, unspecified part of lung- Primary Pneumonia due to infectious organism, unspecified laterality, unspecified part of lung- Primary Chronic respiratory failure with hypoxia (CMS/HCC) Severe persistent asthma, uncomplicated (CMS/HCC) Chronic heart failure with preserved ejection fraction (CMS/HCC) Essential hypertension (CMS/HCC) Unspecified essential hypertension Other secondary pulmonary hypertension (CMS/HCC) Chronic kidney disease, stage 3a (HCC) (CMS/HCC) Morbid (severe) obesity due to excess calories (CMS/HCC) Screening mammogram for breast cancer Moderate episode of recurrent major depressive disorder (CMS/HCC) documented in this encounter [facility]* Diagnosis Moderate episode of recurrent [...] Morbid obesity with BMI of 40.0-44.9, adult ([facility]) Hospital discharge follow-up- Primary Other follow-up examination Chronic respiratory failure with hypoxia (CMS/HCC) Severe persistent asthma without complication (CMS/HCC) Chronic respiratory failure with hypoxia (CMS/HCC)- Primary [...] Pulmonary emphysema, unspecified emphysema type (CMS/HCC)- Primary Flu-like symptoms- Primary Morbid (severe) obesity due to excess calories (CMS/HCC) Body mass index (BMI) 40.0-44.9, adult (CMS/HCC) Pulmonary emphysema, unspecified emphysema type (CMS/HCC) Chronic respiratory failure with hypoxia (CMS/HCC) Essential hypertension (CMS/HCC) Unspecified essential hypertension Pneumonia due to infectious organism, unspecified laterality, unspecified part of lung- Primary Pneumonia due to infectious organism, unspecified laterality, unspecified part of lung- Primary Chronic respiratory failure with hypoxia (CMS/HCC) Severe persistent asthma, uncomplicated (CMS/HCC) Chronic heart failure with preserved ejection fraction (CMS/HCC) Essential hypertension (CMS/HCC) Unspecified essential hypertension Other secondary pulmonary hypertension Chronic kidney disease, stage 3a (HCC) (CMS/HCC) Morbid (severe) obesity due to excess calories (CMS/HCC) Screening mammogram for breast cancer Moderate episode of recurrent major depressive disorder (CMS/HCC) Edema of both lower extremities- Primary Spinal stenosis, lumbar region without neurogenic claudication Chronic heart failure with preserved ejection fraction (CMS/HCC) Chronic respiratory failure with hypoxia (CMS/HCC) Severe persistent asthma, uncomplicated (CMS/HCC) Gastroesophageal reflux disease, unspecified whether esophagitis present Morbid (severe) obesity due to excess calories (CMS/HCC) RLS (restless legs syndrome) Restless legs syndrome (RLS) Candidiasis documented in this encounter [facility]* Diagnosis Moderate episode of recurrent major depressive disorder ([facility]/HCC)- Primary Moderate persistent asthma with exacerbation ([facility]/HCC) Unspecified asthma, with exacerbation Medicare annual wellness visit, subsequent Severe persistent asthma with acute exacerbation ([facility]/HCC)- Primary Hospital discharge follow-up Other follow-up examination Severe persistent asthma without complication (CMS/HCC)- Primary Essential hypertension (CMS/HCC) Unspecified essential hypertension JEANNE (acute kidney injury) ([facility]) Leukocytosis, unspecified type Chronic respiratory failure with hypoxia ([facility]/HCC) Chronic bilateral low back pain without sciatica- Primary Vitamin D deficiency Chronic bilateral low back pain without sciatica- Primary Pneumonia due to infectious organism, unspecified laterality, unspecified part of lung- Primary Screening mammogram for breast cancer Chronic respiratory failure with hypoxia ([facility]) Pulmonary emphysema, unspecified emphysema type ([facility]/HCC) Essential hypertension ([facility]/HCC) Unspecified essential hypertension Morbid obesity with BMI of 40.0-44.9, adult ([facility]) Hospital discharge follow-up- Primary Other follow-up examination Chronic respiratory failure with hypoxia (CMS/HCC) Severe persistent asthma without complication ([facility]/HCC) Chronic respiratory failure with hypoxia ([facility]/HCC)- Primary Hospital discharge follow-up Other follow-up examination Benign essential HTN ([facility]/HCC) Chronic heart failure with preserved ejection fraction ([facility]/HCC) Severe persistent asthma without complication ([facility]/HCC) Moderate mixed hyperlipidemia not requiring statin therapy ([facility]) Morbid obesity with BMI of 40.0-44.9, adult ([facility]) Opioid use Chronic, continuous use of opioids Chronic back pain greater than 3 months duration Urge incontinence- Primary Morbid obesity with BMI of 40.0-44.9, adult ([facility]) 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 Stage 3a chronic kidney disease (HCC) ([facility]) Chronic respiratory failure with hypoxia ([facility]/HCC) Chronic obstructive pulmonary disease with acute lower respiratory infection ([facility]/HCC)- Primary Primary HSV infection of mouth Pulmonary emphysema, unspecified emphysema type ([facility]/HCC)- Primary Flu-like symptoms- Primary Morbid (severe) obesity due to excess calories ([facility]) Body mass index (BMI) 40.0-44.9, adult ([facility] [facility] Pulmonary emphysema, unspecified emphysema type (CMS/HCC) Chronic respiratory failure with hypoxia (CMS/HCC) Essential hypertension (CMS/HCC) Unspecified essential hypertension Pneumonia due to infectious organism, unspecified laterality, unspecified part of lung- Primary Pneumonia due to infectious organism, unspecified laterality, unspecified part of lung- Primary Chronic respiratory failure with hypoxia (CMS/HCC) Severe persistent asthma, uncomplicated (CMS/HCC) Chronic heart failure with preserved ejection fraction (CMS/HCC) Essential hypertension (CMS/HCC) Unspecified essential hypertension Other secondary pulmonary hypertension Chronic kidney disease, stage 3a (HCC) (CMS/HCC) Morbid (severe) obesity due to excess calories (CMS/HCC) Screening mammogram for breast cancer Moderate episode of recurrent major depressive disorder (CMS/HCC) Edema of both lower extremities- Primary Spinal stenosis, lumbar region without neurogenic claudication Chronic heart failure with preserved ejection fraction (CMS/HCC) Chronic respiratory failure with hypoxia (CMS/HCC) Severe persistent asthma, uncomplicated (CMS/HCC) Gastroesophageal reflux disease, unspecified whether esophagitis present Morbid (severe) obesity due to excess calories (CMS/HCC) RLS (restless legs syndrome) Restless legs syndrome (RLS) Candidiasis Gastroesophageal reflux disease without esophagitis Esophageal reflux documented in this encounter [facility] HealthcareEvaluation note* Diagnosis Moderate episode of recurrent major depressive disorder (CMS/HCC)- Primary Moderate persistent asthma with exacerbation ([facility]/HCC) Unspecified asthma, with exacerbation Medicare annual wellness visit, subsequent Severe persistent asthma with acute exacerbation ([facility]/HCC)- Primary Hospital discharge follow-up Other follow-up examination Severe persistent asthma without complication (CMS/HCC)- Primary Essential hypertension (CMS/HCC) Unspecified essential hypertension JEANNE (acute kidney injury) (CMS/[facility]) Leukocytosis, unspecified type Chronic respiratory failure with [...] Morbid obesity with BMI of 40.0-44.9, adult ([facility]) Hospital discharge follow-up- Primary Other follow-up examination Chronic respiratory failure with hypoxia (CMS/HCC) Severe persistent asthma without complication (CMS/HCC) Chronic respiratory failure with hypoxia (CMS/HCC)- Primary Hospital discharge follow-up Other follow-up examination Benign essential HTN ([facility]/HCC) Chronic heart failure with preserved ejection fraction ([facility]/HCC) Severe persistent asthma without complication ([facility]/HCC) Moderate mixed hyperlipidemia not requiring statin therapy ([facility]) Morbid obesity with BMI of 40.0-44.9, adult ([facility]) Opioid use Chronic, continuous use of opioids Chronic back pain greater than 3 months duration Urge incontinence- Primary Morbid obesity with BMI of 40.0-44.9, adult ([facility]) 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 Stage 3a chronic kidney disease (HCC) ([facility] Chronic respiratory failure with hypoxia ([facility]) Chronic obstructive pulmonary disease with acute lower respiratory infection ([facility])- Primary Primary HSV infection of mouth Pulmonary emphysema, unspecified emphysema type ([facility])- Primary Flu-like symptoms- Primary Morbid (severe) obesity due to excess calories ([facility]) Body mass index (BMI) 40.0-44.9, adult ([facility]) Pulmonary emphysema, unspecified emphysema type ([facility]) Chronic respiratory failure with hypoxia ([facility]) Essential hypertension ([facility]) Unspecified essential hypertension Pneumonia due to infectious organism, unspecified laterality, unspecified part of lung- Primary Pneumonia due to infectious organism, unspecified laterality, unspecified part of lung- Primary Chronic respiratory failure with hypoxia ([facility]/HCC) Severe persistent asthma, uncomplicated ([facility]) Chronic heart failure with preserved ejection fraction ([facility] Essential hypertension ([facility]) Unspecified essential hypertension Other secondary pulmonary hypertension Chronic kidney disease, stage 3a (HCC) ([facility]) Morbid (severe) obesity due to excess calories ([facility]) Screening mammogram for breast cancer Moderate episode of recurrent major depressive disorder ([facility]) Edema of both lower extremities- Primary Spinal stenosis, lumbar region without neurogenic claudication Chronic heart failure with preserved ejection fraction ([facility]/HCC) Chronic respiratory failure with hypoxia ([facility]/HCC) Severe persistent asthma, uncomplicated ([facility]/HCC) Gastroesophageal reflux disease, unspecified whether esophagitis present Morbid (severe) obesity due to excess calories ([facility]/HCC) RLS (restless legs syndrome) Restless legs syndrome (RLS) Candidiasis Moderate episode of recurrent major depressive disorder ([facility]/HCC)- Primary Pulmonary emphysema, unspecified emphysema type ([facility]/HCC) Chronic respiratory failure with hypoxia ([facility]/HCC) Morbid (severe) obesity due to excess calories ([facility]) Restless leg syndrome Restless legs syndrome (RLS) documented in this encounter [facility] HealthcareEvaluation note* Diagnosis Moderate episode of recurrent major depressive disorder (HCC)- Primary Moderate persistent asthma with exacerbation (HCC) Unspecified asthma, with exacerbation Medicare annual wellness visit, subsequent Severe persistent asthma with acute exacerbation (HCC)- Primary Hospital discharge follow-up Other follow-up examination Severe persistent asthma without complication (HCC)- Primary Essential hypertension Unspecified essential hypertension JEANNE (acute kidney injury) Leukocytosis, unspecified type Chronic respiratory failure with hypoxia (HCC) Chronic bilateral low back pain without sciatica- Primary Vitamin D deficiency Chronic bilateral low back pain without sciatica- Primary Pneumonia due to infectious organism, unspecified laterality, unspecified part of lung- Primary Screening mammogram for breast cancer Chronic respiratory failure with hypoxia (HCC) Pulmonary emphysema, unspecified emphysema type (HCC) Essential hypertension Unspecified essential hypertension Morbid obesity with BMI of 40.0-44.9, adult ([facility]) Hospital discharge follow-up- Primary Other follow-up examination Chronic respiratory failure with hypoxia (HCC) Severe persistent asthma without complication (HCC) Chronic respiratory failure with hypoxia (HCC)- Primary Hospital discharge follow-up Other follow-up examination Benign essential HTN Chronic heart failure with preserved ejection fraction (HCC) Severe persistent asthma without complication (HCC) Moderate mixed hyperlipidemia not requiring statin therapy Morbid obesity with BMI of 40.0-44.9, adult ([facility]) Opioid use Chronic, continuous use of opioids Chronic back pain greater than 3 months duration Urge incontinence- Primary Morbid obesity with BMI of 40.0-44.9, [place] 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 Stage 3a chronic kidney disease ([facility]) Chronic respiratory failure with hypoxia (HCC) Chronic obstructive pulmonary disease with acute lower respiratory infection (HCC)- Primary Primary HSV infection of mouth Pulmonary emphysema, unspecified emphysema type (HCC)- Primary Flu-like symptoms- Primary Morbid (severe) obesity due to excess calories ([facility]) Body mass index (BMI) 40.0-44.9, adult [place] Pulmonary emphysema, unspecified emphysema type (HCC) Chronic respiratory failure with hypoxia (HCC) Essential hypertension Unspecified essential hypertension Pneumonia due to infectious organism, unspecified laterality, unspecified part of lung- Primary Pneumonia due to infectious organism, unspecified laterality, unspecified part of lung- Primary Chronic respiratory failure with hypoxia (HCC) Severe persistent asthma, uncomplicated (HCC) Chronic heart failure with preserved ejection fraction (HCC) Essential hypertension Unspecified essential hypertension Other secondary pulmonary hypertension (HCC) Chronic kidney disease, stage 3a ([facility]) Morbid (severe) obesity due to excess calories ([facility]) Screening mammogram for breast cancer Moderate episode of recurrent major depressive disorder (HCC) Edema of both lower extremities- Primary Spinal stenosis, lumbar region without neurogenic claudication Chronic heart failure with preserved ejection fraction (HCC) Chronic respiratory failure with hypoxia (HCC) Severe persistent asthma, uncomplicated (HCC) Gastroesophageal reflux disease, unspecified whether esophagitis present Morbid (severe) obesity due to excess calories ([facility]) RLS (restless legs syndrome) Restless legs syndrome (RLS) Candidiasis Moderate episode of recurrent major depressive disorder (HCC)- Primary Pulmonary emphysema, unspecified emphysema type (HCC) Chronic respiratory failure with hypoxia (HCC) Morbid (severe) obesity due to excess calories ([facility]) Restless leg syndrome Restless legs syndrome (RLS) Moderate episode of recurrent major depressive disorder (HCC)- Primary documented in this encounter [facility] HealthcareEvaluation note* Diagnosis Moderate episode of recurrent major depressive disorder (HCC)- Primary Moderate persistent asthma with exacerbation (HCC) Unspecified asthma, with exacerbation Medicare annual wellness visit, subsequent Severe persistent asthma with acute exacerbation (HCC)- Primary Hospital discharge follow-up Other follow-up examination Severe persistent asthma without complication (HCC)- Primary Essential hypertension Unspecified essential hypertension JEANNE (acute kidney injury) Leukocytosis, unspecified type Chronic respiratory failure with hypoxia (HCC) Chronic bilateral low back pain without sciatica- Primary Vitamin D deficiency Chronic bilateral low back pain without sciatica- Primary Pneumonia due to infectious organism, unspecified laterality, unspecified part of lung- Primary Screening mammogram for breast cancer Chronic respiratory failure with hypoxia (HCC) Pulmonary emphysema, unspecified emphysema type (HCC) Essential hypertension Unspecified essential hypertension Morbid obesity with BMI of 40.0-44.9, adult ([facility]) Hospital discharge follow-up- Primary Other follow-up examination Chronic respiratory failure with hypoxia (HCC) Severe persistent asthma without complication (HCC) Chronic respiratory failure with hypoxia (HCC)- Primary Hospital discharge follow-up Other follow-up examination Benign essential HTN Chronic heart failure with preserved ejection fraction (HCC) Severe persistent asthma without complication (HCC) Moderate mixed hyperlipidemia not requiring statin therapy Morbid obesity with BMI of 40.0-44.9, adult [place] Opioid use Chronic, continuous use of opioids Chronic back pain greater than 3 months duration Urge incontinence- Primary Morbid obesity with BMI of 40.0-44.9, adult [place] 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 Stage 3a chronic kidney disease ([facility]) Chronic respiratory failure with hypoxia ([facility]) Chronic obstructive pulmonary disease with acute lower respiratory infection ([facility])- Primary Primary HSV infection of mouth Pulmonary emphysema, unspecified emphysema type ([facility])- Primary Flu-like symptoms- Primary Morbid (severe) obesity due to excess calories ([facility] Body mass index (BMI) 40.0-44.9, adult ([facility] Pulmonary emphysema, unspecified emphysema type ([facility]) Chronic respiratory failure with hypoxia ([facility]) Essential hypertension Unspecified essential hypertension Pneumonia due to infectious organism, unspecified laterality, unspecified part of lung- Primary Pneumonia due to infectious organism, unspecified laterality, unspecified part of lung- Primary Chronic respiratory failure with hypoxia ([facility]) Severe persistent asthma, uncomplicated ([facility]) Chronic heart failure with preserved ejection fraction (HCC) Essential hypertension Unspecified essential hypertension Other secondary pulmonary hypertension ([facility]) Chronic kidney disease, stage 3a ([facility] Morbid (severe) obesity due to excess calories ([facility] Screening mammogram for breast cancer Moderate episode of recurrent major depressive disorder ([facility]) Edema of both lower extremities- Primary Spinal stenosis, lumbar region without neurogenic claudication Chronic heart failure with preserved ejection fraction (HCC) Chronic respiratory failure with hypoxia (HCC) Severe persistent asthma, uncomplicated (HCC) Gastroesophageal reflux disease, unspecified whether esophagitis present Morbid (severe) obesity due to excess calories ([facility] RLS (restless legs syndrome) Restless legs syndrome (RLS) Candidiasis Moderate episode of recurrent major depressive disorder (HCC)- Primary Pulmonary emphysema, unspecified emphysema type (HCC) Chronic respiratory failure with hypoxia (HCC) Morbid (severe) obesity due to excess calories ([facility] Restless leg syndrome Restless legs syndrome (RLS) Chronic bilateral low back pain without sciatica documented in this encounter [facility] HealthcareEvaluation note* Diagnosis Moderate episode of recurrent major depressive disorder (HCC)- Primary Moderate persistent asthma with exacerbation (HCC) Unspecified asthma, with exacerbation Medicare annual wellness visit, subsequent Severe persistent asthma with acute exacerbation (HCC)- Primary Hospital discharge follow-up Other follow-up examination Severe persistent asthma without complication (HCC)- Primary Essential hypertension Unspecified essential hypertension JEANNE (acute kidney injury) Leukocytosis, unspecified type Chronic respiratory failure with hypoxia (HCC) Chronic bilateral low back pain without sciatica- Primary Vitamin D deficiency Chronic bilateral low back pain without sciatica- Primary Pneumonia due to infectious organism, unspecified laterality, unspecified part of lung- Primary Screening mammogram for breast cancer Chronic respiratory failure with hypoxia (HCC) Pulmonary emphysema, unspecified emphysema type (HCC) Essential hypertension Unspecified essential hypertension Morbid obesity with BMI of 40.0-44.9, adult ([facility] Hospital discharge follow-up- Primary Other follow-up examination Chronic respiratory failure with hypoxia (HCC) Severe persistent asthma without complication (HCC) Chronic respiratory failure with hypoxia (HCC)- Primary Hospital discharge follow-up Other follow-up examination Benign essential HTN Chronic heart failure with preserved ejection fraction (HCC) Severe persistent asthma without complication (HCC) Moderate mixed hyperlipidemia not requiring statin therapy Morbid obesity with BMI of 40.0-44.9, adult ([facility] Opioid use Chronic, continuous use of opioids Chronic back pain greater than 3 months duration Urge incontinence- Primary Morbid obesity with BMI of 40.0-44.9, adult ([facility] 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 Stage 3a chronic kidney disease ([facility] Chronic respiratory failure with hypoxia ([facility]) Chronic obstructive pulmonary disease with acute lower respiratory infection (HCC)- Primary Primary HSV infection of mouth Pulmonary emphysema, unspecified emphysema type (HCC)- Primary Flu-like symptoms- Primary Morbid (severe) obesity due to excess calories ([facility] Body mass index (BMI) 40.0-44.9, adult ([facility] Pulmonary emphysema, unspecified emphysema type (HCC) Chronic respiratory failure with hypoxia (HCC) Essential hypertension Unspecified essential hypertension Pneumonia due to infectious organism, unspecified laterality, unspecified part of lung- Primary Pneumonia due to infectious organism, unspecified laterality, unspecified part of lung- Primary Chronic respiratory failure with hypoxia (HCC) Severe persistent asthma, uncomplicated (HCC) Chronic heart failure with preserved ejection fraction (HCC) Essential hypertension Unspecified essential hypertension Other secondary pulmonary hypertension (HCC) Chronic kidney disease, stage 3a ([facility] Morbid (severe) obesity due to excess calories ([facility] Screening mammogram for breast cancer Moderate episode of recurrent major depressive disorder ([facility]) Edema of both lower extremities- Primary Spinal stenosis, lumbar region without neurogenic claudication Chronic heart failure with preserved ejection fraction (HCC) Chronic respiratory failure with hypoxia (HCC) Severe persistent asthma, uncomplicated (HCC) Gastroesophageal reflux disease, unspecified whether esophagitis present Morbid (severe) obesity due to excess calories ([facility]-HCC) RLS (restless legs syndrome) Restless legs syndrome (RLS) Candidiasis Moderate episode of recurrent major depressive disorder (HCC)- Primary Pulmonary emphysema, unspecified emphysema type (HCC) Chronic respiratory failure with hypoxia (HCC) Morbid (severe) obesity due to excess calories ([facility]) Restless leg syndrome Restless legs syndrome (RLS) Restless leg syndrome Restless legs syndrome (RLS) documented in this encounter [facility] HealthcareEvaluation note* Diagnosis Moderate episode of recurrent major depressive disorder (HCC)- Primary Moderate persistent asthma with exacerbation (HCC) Unspecified asthma, with exacerbation Medicare annual wellness visit, subsequent Severe persistent asthma with acute exacerbation (HCC)- Primary Hospital discharge follow-up Other follow-up examination Severe persistent asthma without complication (HCC)- Primary Essential hypertension Unspecified essential hypertension JEANNE (acute kidney injury) Leukocytosis, unspecified type Chronic respiratory failure with hypoxia (HCC) Chronic bilateral low back pain without sciatica- Primary Vitamin D deficiency Chronic bilateral low back pain without sciatica- Primary Pneumonia due to infectious organism, unspecified laterality, unspecified part of lung- Primary Screening mammogram for breast cancer Chronic respiratory failure with hypoxia (HCC) Pulmonary emphysema, unspecified emphysema type (HCC) Essential hypertension Unspecified essential hypertension Morbid obesity with BMI of 40.0-44.9, adult ([facility]) Hospital discharge follow-up- Primary Other follow-up examination Chronic respiratory failure with hypoxia (HCC) Severe persistent asthma without complication (HCC) Chronic respiratory failure with hypoxia (HCC)- Primary Hospital discharge follow-up Other follow-up examination Benign essential HTN Chronic heart failure with preserved ejection fraction (HCC) Severe persistent asthma without complication (HCC) Moderate mixed hyperlipidemia not requiring statin therapy Morbid obesity with BMI of 40.0-44.9, adult ([facility] Opioid use Chronic, continuous use of opioids Chronic back pain greater than 3 months duration Urge incontinence- Primary Morbid obesity with BMI of 40.0-44.9, adult ([facility] 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 Stage 3a chronic kidney disease ([facility]) Chronic respiratory failure with hypoxia (HCC) Chronic obstructive pulmonary disease with acute lower respiratory infection (HCC)- Primary Primary HSV infection of mouth Pulmonary emphysema, unspecified emphysema type (HCC)- Primary Flu-like symptoms- Primary Morbid (severe) obesity due to excess calories ([facility]) Body mass index (BMI) 40.0-44.9, adult ([facility]) Pulmonary emphysema, unspecified emphysema type (HCC) Chronic respiratory failure with hypoxia (HCC) Essential hypertension Unspecified essential hypertension Pneumonia due to infectious organism, unspecified laterality, unspecified part of lung- Primary Pneumonia due to infectious organism, unspecified laterality, unspecified part of lung- Primary Chronic respiratory failure with hypoxia (HCC) Severe persistent asthma, uncomplicated (HCC) Chronic heart failure with preserved ejection fraction (HCC) Essential hypertension Unspecified essential hypertension Other secondary pulmonary hypertension (HCC) Chronic kidney disease, stage 3a ([facility]) Morbid (severe) obesity due to excess calories ([facility]) Screening mammogram for breast cancer Moderate episode of recurrent major depressive disorder (HCC) Edema of both lower extremities- Primary Spinal stenosis, lumbar region without neurogenic claudication Chronic heart failure with preserved ejection fraction (HCC) Chronic respiratory failure with hypoxia (HCC) Severe persistent asthma, uncomplicated (HCC) Gastroesophageal reflux disease, unspecified whether esophagitis present Morbid (severe) obesity due to excess calories ([facility]) RLS (restless legs syndrome) Restless legs syndrome (RLS) Candidiasis Moderate episode of recurrent major depressive disorder (HCC)- Primary Pulmonary emphysema, unspecified emphysema type (HCC) Chronic respiratory failure with hypoxia (HCC) Morbid (severe) obesity due to excess calories ([facility]) Restless leg syndrome Restless legs syndrome (RLS) Chronic heart failure with preserved ejection fraction (HCC)- Primary Edema of both lower extremities documented in this encounter [facility] HealthcareEvaluation note* Diagnosis Moderate episode of recurrent major depressive disorder (HCC)- Primary Moderate persistent asthma with exacerbation (HCC) Unspecified asthma, with exacerbation Medicare annual wellness visit, subsequent Severe persistent asthma with acute exacerbation (HCC)- Primary Hospital discharge follow-up Other follow-up examination Severe persistent asthma without complication (HCC)- Primary Essential hypertension Unspecified essential hypertension JEANNE (acute kidney injury) Leukocytosis, unspecified type Chronic respiratory failure with hypoxia (HCC) Chronic bilateral low back pain without sciatica- Primary Vitamin D deficiency Chronic bilateral low back pain without sciatica- Primary Pneumonia due to infectious organism, unspecified laterality, unspecified part of lung- Primary Screening mammogram for breast cancer Chronic respiratory failure with hypoxia (HCC) Pulmonary emphysema, unspecified emphysema type (HCC) Essential hypertension Unspecified essential hypertension Morbid obesity with BMI of 40.0-44.9, adult [place] Hospital discharge follow-up- Primary Other follow-up examination Chronic respiratory failure with hypoxia (HCC) Severe persistent asthma without complication (HCC) Chronic respiratory failure with hypoxia (HCC)- Primary Hospital discharge follow-up Other follow-up examination Benign essential HTN Chronic heart failure with preserved ejection fraction (HCC) Severe persistent asthma without complication (HCC) Moderate mixed hyperlipidemia not requiring statin therapy Morbid obesity with BMI of 40.0-44.9, adult [place] Opioid use Chronic, continuous use of opioids Chronic back pain greater than 3 months duration Urge incontinence- Primary Morbid obesity with BMI of 40.0-44.9, adult ([facility] 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 Stage 3a chronic kidney disease ([facility] Chronic respiratory failure with hypoxia [facility]) Chronic obstructive pulmonary disease with acute lower respiratory infection ([facility])- Primary Primary HSV infection of mouth Pulmonary emphysema, unspecified emphysema type ([facility])- Primary Flu-like symptoms- Primary Morbid (severe) obesity due to excess calories ([facility] Body mass index (BMI) 40.0-44.9, adult ([facility] Pulmonary emphysema, unspecified emphysema type ([facility]) Chronic respiratory failure with hypoxia ([facility]) Essential hypertension Unspecified essential hypertension Pneumonia due to infectious organism, unspecified laterality, unspecified part of lung- Primary Pneumonia due to infectious organism, unspecified laterality, unspecified part of lung- Primary Chronic respiratory failure with hypoxia ([facility]) Severe persistent asthma, uncomplicated (HCC) Chronic heart failure with preserved ejection fraction (HCC) Essential hypertension Unspecified essential hypertension Other secondary pulmonary hypertension (HCC) Chronic kidney disease, stage 3a ([facility] Morbid (severe) obesity due to excess calories ([facility] Screening mammogram for breast cancer Moderate episode of recurrent major depressive disorder ([facility]) Edema of both lower extremities- Primary Spinal stenosis, lumbar region without neurogenic claudication Chronic heart failure with preserved ejection fraction (HCC) Chronic respiratory failure with hypoxia (HCC) Severe persistent asthma, uncomplicated (HCC) Gastroesophageal reflux disease, unspecified whether esophagitis present Morbid (severe) obesity due to excess calories ([facility]) RLS (restless legs syndrome) Restless legs syndrome (RLS) Candidiasis Moderate episode of recurrent major depressive disorder (HCC)- Primary Pulmonary emphysema, unspecified emphysema type (HCC) Chronic respiratory failure with hypoxia (HCC) Morbid (severe) obesity due to excess calories ([facility]) Restless leg syndrome Restless legs syndrome (RLS) Moderate episode of recurrent major depressive disorder (HCC)- Primary Morbid (severe) obesity due to excess calories ([facility]) Candidiasis of breast Skin pustule Unspecified local infection of skin and subcutaneous tissue RLS (restless legs syndrome) Restless legs syndrome (RLS) documented in this encounter [facility] HealthcareEvaluation note* Diagnosis Moderate episode of recurrent major depressive disorder (HCC)- Primary Moderate persistent asthma with exacerbation (HCC) Unspecified asthma, with exacerbation Medicare annual wellness visit, subsequent Severe persistent asthma with acute exacerbation (HCC)- Primary Hospital discharge follow-up Other follow-up examination Severe persistent asthma without complication (HCC)- Primary Essential hypertension Unspecified essential hypertension JEANNE (acute kidney injury) Leukocytosis, unspecified type Chronic respiratory failure with hypoxia (HCC) Chronic bilateral low back pain without sciatica- Primary Vitamin D deficiency Chronic bilateral low back pain without sciatica- Primary Pneumonia due to infectious organism, unspecified laterality, unspecified part of lung- Primary Screening mammogram for breast cancer Chronic respiratory failure with hypoxia (HCC) Pulmonary emphysema, unspecified emphysema type (HCC) Essential hypertension Unspecified essential hypertension Morbid obesity with BMI of 40.0-44.9, adult ([facility] Hospital discharge follow-up- Primary Other follow-up examination Chronic respiratory failure with hypoxia (HCC) Severe persistent asthma without complication (HCC) Chronic respiratory failure with hypoxia (HCC)- Primary Hospital discharge follow-up Other follow-up examination Benign essential HTN Chronic heart failure with preserved ejection fraction (HCC) Severe persistent asthma without complication (HCC) Moderate mixed hyperlipidemia not requiring statin therapy Morbid obesity with BMI of 40.0-44.9, adult ([facility] Opioid use Chronic, continuous use of opioids Chronic back pain greater than 3 months duration Urge incontinence- Primary Morbid obesity with BMI of 40.0-44.9, adult ([facility] 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 Stage 3a chronic kidney disease ([facility]) Chronic respiratory failure with hypoxia (HCC) Chronic obstructive pulmonary disease with acute lower respiratory infection (HCC)- Primary Primary HSV infection of mouth Pulmonary emphysema, unspecified emphysema type (HCC)- Primary Flu-like symptoms- Primary Morbid (severe) obesity due to excess calories ([facility]) Body mass index (BMI) 40.0-44.9, adult ([facility]) Pulmonary emphysema, unspecified emphysema type (HCC) Chronic respiratory failure with hypoxia (HCC) Essential hypertension Unspecified essential hypertension Pneumonia due to infectious organism, unspecified laterality, unspecified part of lung- Primary Pneumonia due to infectious organism, unspecified laterality, unspecified part of lung- Primary Chronic respiratory failure with hypoxia (HCC) Severe persistent asthma, uncomplicated (HCC) Chronic heart failure with preserved ejection fraction (HCC) Essential hypertension Unspecified essential hypertension Other secondary pulmonary hypertension (HCC) Chronic kidney disease, stage 3a ([facility]) Morbid (severe) obesity due to excess calories ([facility]) Screening mammogram for breast cancer Moderate episode of recurrent major depressive disorder ([facility]) Edema of both lower extremities- Primary Spinal stenosis, lumbar region without neurogenic claudication Chronic heart failure with preserved ejection fraction (HCC) Chronic respiratory failure with hypoxia (HCC) Severe persistent asthma, uncomplicated ([facility]) Gastroesophageal reflux disease, unspecified whether esophagitis present Morbid (severe) obesity due to excess calories ([facility]) RLS (restless legs syndrome) Restless legs syndrome (RLS) Candidiasis Moderate episode of recurrent major depressive disorder (HCC)- Primary Pulmonary emphysema, unspecified emphysema type (HCC) Chronic respiratory failure with hypoxia (HCC) Morbid (severe) obesity due to excess calories ([facility]) Restless leg syndrome Restless legs syndrome (RLS) Moderate episode of recurrent major depressive disorder (HCC)- Primary Morbid (severe) obesity due to excess calories ([facility]) Candidiasis of breast Skin pustule Unspecified local infection of skin and subcutaneous tissue RLS (restless legs syndrome) Restless legs syndrome (RLS) Skin pustule Unspecified local infection of skin and subcutaneous tissue documented in this encounter [facility] HealthcareEvaluation note* Diagnosis Moderate episode of recurrent major depressive disorder (HCC)- Primary Moderate persistent asthma with exacerbation (HCC) Unspecified asthma, with exacerbation Medicare annual wellness visit, subsequent Severe persistent asthma with acute exacerbation (HCC)- Primary Hospital discharge follow-up Other follow-up examination Severe persistent asthma without complication (HCC)- Primary Essential hypertension Unspecified essential hypertension JEANNE (acute kidney injury) Leukocytosis, unspecified type Chronic respiratory failure with hypoxia (HCC) Chronic bilateral low back pain without sciatica- Primary Vitamin D deficiency Chronic bilateral low back pain without sciatica- Primary Pneumonia due to infectious organism, unspecified laterality, unspecified part of lung- Primary Screening mammogram for breast cancer Chronic respiratory failure with hypoxia (HCC) Pulmonary emphysema, unspecified emphysema type (HCC) Essential hypertension Unspecified essential hypertension Morbid obesity with BMI of 40.0-44.9, adult ([facility] Hospital discharge follow-up- Primary Other follow-up examination Chronic respiratory failure with hypoxia (HCC) Severe persistent asthma without complication (HCC) Chronic respiratory failure with hypoxia (HCC)- Primary Hospital discharge follow-up Other follow-up examination Benign essential HTN Chronic heart failure with preserved ejection fraction (HCC) Severe persistent asthma without complication (HCC) Moderate mixed hyperlipidemia not requiring statin therapy Morbid obesity with BMI of 40.0-44.9, adult ([facility] Opioid use Chronic, continuous use of opioids Chronic back pain greater than 3 months duration Urge incontinence- Primary Morbid obesity with BMI of 40.0-44.9, adult ([facility] 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 Stage 3a chronic kidney disease ([facility]) Chronic respiratory failure with hypoxia ([facility]) Chronic obstructive pulmonary disease with acute lower respiratory infection ([facility])- Primary Primary HSV infection of mouth Pulmonary emphysema, unspecified emphysema type (HCC)- Primary Flu-like symptoms- Primary Morbid (severe) obesity due to excess calories ([facility] Body mass index (BMI) 40.0-44.9, adult ([facility] Pulmonary emphysema, unspecified emphysema type (HCC) Chronic respiratory failure with hypoxia (HCC) Essential hypertension Unspecified essential hypertension Pneumonia due to infectious organism, unspecified laterality, unspecified part of lung- Primary Pneumonia due to infectious organism, unspecified laterality, unspecified part of lung- Primary Chronic respiratory failure with hypoxia (HCC) Severe persistent asthma, uncomplicated (HCC) Chronic heart failure with preserved ejection fraction (HCC) Essential hypertension Unspecified essential hypertension Other secondary pulmonary hypertension (HCC) Chronic kidney disease, stage 3a ([facility] Morbid (severe) obesity due to excess calories ([facility] Screening mammogram for breast cancer Moderate episode of recurrent major depressive disorder ([facility]) Edema of both lower extremities- Primary Spinal stenosis, lumbar region without neurogenic claudication Chronic heart failure with preserved ejection fraction (HCC) Chronic respiratory failure with hypoxia (HCC) Severe persistent asthma, uncomplicated (HCC) Gastroesophageal reflux disease, unspecified whether esophagitis present Morbid (severe) obesity due to excess calories (CMS-HCC) RLS (restless legs syndrome) Restless legs syndrome (RLS) Candidiasis Moderate episode of recurrent major depressive disorder (HCC)- Primary Pulmonary emphysema, unspecified emphysema type (HCC) Chronic respiratory failure with hypoxia (HCC) Morbid (severe) obesity due to excess calories (CMS-HCC) Restless leg syndrome Restless legs syndrome (RLS) Moderate episode of recurrent major depressive disorder (HCC)- Primary Morbid (severe) obesity due to excess calories (CMS-HCC) Candidiasis of breast Skin pustule Unspecified local infection of skin and subcutaneous tissue RLS (restless legs syndrome) Restless legs syndrome (RLS) Moderate episode of recurrent major depressive disorder (HCC) documented in this encounter [facility] HealthcareHistory general Narrative - Reported* Type Description [...] IN 08/2019 Hospitalization History HIP REVISION 03/2020 [facility] Other History general Narrative - Reported* Type [...] 16 Surgical History (R) TKA Joss SERRATO 12/13/201 8 Surgical History 1 INCH OF BONE OFF OF RIGHT BALTA T 2014 Surgical History LEFT HIP RESVISION 03/2020 Hospitalization History see above 2002,198 7 Hospitalization History 1 week during chemo 2003 Hospitalization History ISSUE WITH HIP C OMING OUT AND NEEDING TO PUT IT BACK IN 08/2019 Hospitalization History HIP REVISION 03/2020 Hospitalization History COVID X 2 WEEKS 04/2023 [facility] Other Hospital course Narrative No data available for this section [facility] Hospital Discharge instructions Additional Instructions [...] if you have any problems. -Office number [phone] Work Phone: Hospital Discharge instructions No data available for this section [facility] Progress note No data available for this section [facility] Advance Directives No Advanced Directives Records Found [...] prosecute any alcohol or drug abuse patient.[facility] System[facility] the event this information is protected by the Federal Confidentiality of Alcohol and Drug Abuse Patient Records regulations: The Federal rules restrict any use of the information to criminally investigate or prosecute any alcohol or drug abuse patient.[facility] SystemIn the event this information is protected by the Federal Confidentiality of Alcohol and Drug Abuse Patient Records regulations: The Federal rules restrict any use of the information to criminally investigate or prosecute any alcohol or drug abuse patient.[facility] SystemIn the event this information is protected by the Federal Confidentiality of Alcohol and Drug Abuse Patient Records regulations: The Federal rules restrict any use of the information to criminally investigate or prosecute any alcohol or drug abuse patient.[facility] INFORMATION SOURCE (unrecogn ized section and content) DATE CREATED AUTHOR 03/03/2022 [facility] DATE CREATED AUTHOR AUTHOR'S ORGANIZ ATION 04/17/2023 [facility] DATE CREATED AUTHOR AUTHOR'S ORGANIZ ATION [facility]/20/2024 [facility] DATE CREATED AUTHOR AUTHOR'S ORGANIZ ATION 11/18/2024 [facility] DATE CREATED AUTHOR AUTHOR'S ORGANIZ ATION 01/25/2025 [facility] DATE CREATED AUTHOR AUTHOR'S ORGANIZ ATION 03/26/2025 [facility] DATE CREATED AUTHOR AUTHOR'S ORGANIZ ATION 05/22/2025 [facility] DATE CREATED AUTHOR AUTHOR'S ORGANIZ ATION 06/20/2025 [facility] DATE CREATED AUTHOR AUTHOR'S ORGANIZ ATION 07/05/2025 [facility] REASON FOR VISIT (unrecogniz ed section [...] of uncertain behavior of chest wall Procedures [facility] OFFICE/OUTPATIENT NEW HIGH MDM Aida Reese, RIKKI [address] [place] [address] Phone: tel: fax: Elena Martinez, [employer]AD[employer] DEVELOPER [address] [place] [address] Phone: tel: fax: Referral ID Status Reason Start Date Expiration Date V isits Requested Visits Authorized [id number] Closed Specialty Services Required 10/07/2024 04/05/2025 1 [...] Suspicious Skin Lesion Reason Comments Skin Check Reason Onset Date Comments Med Refill 02/26/2025 Reason Onset Date Comments Med Refill 04/29/2025 Reason Comments COPD Care Teams (unrecognized sec tion and content) [...] Status: Active Member Role Status Dates Steph Marinellijohn Attending Provider Active Start: Paolo deras 2003 [...] March 14, 2024 End: March 14, 2024 Bar Turner Relationship Specialty Start Date End Date Tapan Zazueta MD [address] [place] [phone] PCP - General Family Medicine 06/10/24 Ariella Mathis DO [address] [place] [address] Referring Physician Neurology 01/02/24 Aida Reese NP [address] [place] [address] Nurse Practitioner Family Medicine 06/10/24 Bar Turner Relationship Specialty Start Date End Date Tapan Zazueta MD [address] [place] [phone] PCP - General Family Medicine 06/10/24 Ariella Mathis DO [address] [place], [place] [id number] Referring Physician Neurology 01/02/24 Aida Reese NP [address] [place] [address] Nurse Practitioner Family Medicine 06/10/24 Bar Turner Relationship Specialty Start Date End Date Tapan Zazueta MD [address] [place] [phone] PCP - General Family Medicine 06/10/24 Ariella Mathis DO [address], [place] [id number] Referring Physician Neurology 01/02/24 Aida Reese NP [address] [place] [address] Nurse Practitioner Family Medicine 06/10/24 Bar Turner Relationship Specialty Start Date End Date Tapan Zazueta MD [address] [place] [address] PCP - General Family Medicine 06/10/24 Ariella Mathis DO [address] [place], [place] [id number] Referring Physician Neurology 01/02/24 Aida Reese NP [address] [place] [address] Nurse Practitioner Family Medicine 06/10/24 Bar Turner Relationship Specialty Start Date End Date Tapan Zazueta MD [address] [place] [place] [phone] PCP - General Family Medicine 06/10/24 Ariella Mathis DO [address], [place] [id number] Referring Physician Neurology 01/02/24 Aida Reese NP [address] [place] [address] Nurse Practitioner Family Medicine 06/10/24 Team Status: [...] September 05, 2024 End: September 05, 2024 Bar Turner Relationship Specialty Start Date End Date Tapan Zazueta MD [address] [place] [address] PCP - General Family Medicine 06/10/24 Ariella Mathis DO [address] [place] [address] Referring Physician Neurology 01/02/24 Aida Reese NP [address] [place] [address] Nurse Practitioner Family Medicine 06/10/24 Bar Turner Relationship Specialty Start Date End Date Tapan Zazueta MD [address] [place] [phone] PCP - General Family Medicine 06/10/24 Ariella Mathis DO [address], [place] [id number] Referring Physician Neurology 01/02/24 Aida Reese NP [address] [place] [address] Nurse Practitioner Family Medicine 06/10/24 Bar Turner Relationship Specialty Start Date End Date Tapan Zazueta MD [address] [place] [address] PCP - General Family Medicine 06/10/24 Ariella Mathis DO [address], [place] [phone] Referring Physician Neurology 01/02/24 Aida Reese NP [address] [place] [address] Nurse Practitioner Family Medicine 06/10/24 Bar Turner Relationship Specialty Start Date End Date Tapan Zazueta MD [address] [place] [address] PCP - General Family Medicine 06/10/24 Ariella Mathis DO [address], [place] [address] Referring Physician Neurology 01/02/24 Aida Reese NP [address] [place] [address] Nurse Practitioner Family Medicine 06/10/24 Bar Turner Relationship Specialty Start Date End Date Tapan Zazueta MD [address] [place] [phone] PCP - General Family Medicine 06/10/24 Ariella Mathis DO [address] [place], [place] [id number] Referring Physician Neurology 01/02/24 Aida Reese NP [address] [place] [address] Nurse Practitioner Family Medicine 06/10/24 Bar Turner Relationship Specialty Start Date End Date Tapan Zazueta MD [address] [place] [address] PCP - General Family Medicine 06/10/24 Ariella Mathis DO [address] [place], [place] [address] Referring Physician Neurology 01/02/24 Aida Reese NP [address] [place] [address] Nurse Practitioner Family Medicine 06/10/24 Bar Turner Relationship Specialty Start Date End Date Tapan Zazueta MD [address] [place] [phone] PCP - General Family Medicine 06/10/24 Ariella Mathis DO [address] [place] [address] Referring Physician Neurology 01/02/24 Aida Reese NP [address] [place] [address] Nurse Practitioner Family Medicine 06/10/24 Bar Turner Relationship Specialty Start Date End Date Tapan Zazueta MD [address] [place] [phone] PCP - General Family Medicine 06/10/24 Ariella Mathis DO [address] [place] [address] Referring Physician Neurology 01/02/24 Aida Reese NP [address] [place] [address] Nurse Practitioner Family Medicine 06/10/24 Bar Turner Relationship Specialty Start Date End Date Tapan Zazueta MD [address] [place] [phone] PCP - General Family Medicine 06/10/24 Ariella Mathis DO [address] [place] [address] Referring Physician Neurology 01/02/24 Aida Reese NP [address] [place] [address] Nurse Practitioner Family Medicine 06/10/24 Bar Turner Relationship Specialty Start Date End Date Tapan Zazueta MD [address] [place] [phone] PCP - General Family Medicine 06/10/24 Ariella Mathis DO [address], [place] [address] Referring Physician Neurology 01/02/24 Aida Reese NP [address] [place] [address] Nurse Practitioner Family Medicine 06/10/24 Bar Turner Relationship Specialty Start Date End Date Tapan Zazueta MD [address] [place] [phone] PCP - General Family Medicine 06/10/24 Ariella Mathis DO [address], [place] [address] Referring Physician Neurology 01/02/24 Aida Reese NP [address] [place] [address] Nurse Practitioner Family Medicine 06/10/24 Bar Turner Relationship Specialty Start Date End Date Tapan Zazueta MD [address] [place] [address]10[address] PCP - General Family Medicine 06/10/24 Ariella Mathis DO [address], [place] [id number] Referring Physician Neurology 01/02/24 Aida Reese NP [address] [place] [address] Nurse Practitioner Family Medicine 06/10/24 Bar Turner Relationship Specialty Start Date End Date Tapan Zazueta MD [address] [place] [address] PCP - General Family Medicine 06/10/24 Ariella Mathis DO [address], [place] [id number] Referring Physician Neurology 01/02/24 Aida Reese NP [address] [place] [address]610[address] Nurse Practitioner Family Medicine 06/10/24 Bar Turner Relationship Specialty Start Date End Date Tapan Zazueta MD [address] [place] [address]10[address] PCP - General Family Medicine 06/10/24 Ariella Mathis DO [address] [place], [place] [address] Referring Physician Neurology 01/02/24 Aida Reese NP [address] [place] [address]10[address] Nurse Practitioner Family Medicine 06/10/24 Bar Turner Relationship Specialty Start Date End Date Tapan Zazueta MD [address] [place] [address]0310[address] PCP - General Family Medicine 06/10/24 Ariella Mathis DO [address] [place] [address] Referring Physician Neurology 01/02/24 Aida Reese NP [address] [place] [address]9810[address] Nurse Practitioner Family Medicine 06/10/24 Team Status: Inactive Member Role Status Dates Allan Lacey MD Attending Provider Active Start: September 12, 2024 End: September 12, 2024 Aida Reese NP-C Primary Care Provider Ac tive Start: September 12, 2024 End: September 12, 2024 Bar Turner Relationship Specialty Start Date End Date Tapan Zazueta MD [address] [place] [address]9110[address] PCP - General Family Medicine 06/10/24 Ariella Mathis DO [address] [place] [address] Referring Physician Neurology 01/02/24 Aida Reese NP [address] [place] [address]10[address] Nurse Practitioner Family Medicine 06/10/24 Bar Turner Relationship Specialty Start Date End Date Tapan Zazueta MD [address] [place] [address]10[address] PCP - General Family Medicine 06/10/24 Ariella Mathis DO [address] [place] [address] Referring Physician Neurology 01/02/24 Aida Reese NP [address] [place] [address]-976010[address] Nurse Practitioner Family Medicine 06/10/24 Bar Turner Relationship Specialty Start Date End Date Tapan Zazueta MD [address] [place] [address] PCP - General Family Medicine 06/10/24 Ariella Mathis DO [address] [place], [place] [address] Referring Physician Neurology 01/02/24 Aida Reese NP [address] [place] [address]010[address] Nurse Practitioner Family Medicine 06/10/24 Bar Turner Relationship Specialty Start Date End Date Tapan Zazueta MD [address] [place] [address]10[address] PCP - General Family Medicine 06/10/24 Ariella Mathis DO [address] [place] [address] Referring Physician Neurology 01/02/24 Aida Reese NP [address] [place] [address]10[address] Nurse Practitioner Family Medicine 06/10/24 Bar Turner Relationship Specialty Start Date End Date Tapan Zazueta MD [address] [place] [address]10[address] PCP - General Family Medicine 06/10/24 Ariella Mathis DO [address] [place] [address] Referring Physician Neurology 01/02/24 Aida Reese NP [address] [place] [address] Nurse Practitioner Family Medicine 06/10/24 Bar Turner Relationship Specialty Start Date End Date Tapan Zazueta MD [address] [place] [address] PCP - General Family Medicine 06/10/24 Ariella Mathis DO [address] [place] [address] Referring Physician Neurology 01/02/24 Aida Reese, RIKKI [address] [place] [address] Nurse Practitioner Family Medicine 06/10/24 Bar Turner Relationship Specialty Start Date End Date Tapan Zazueta MD [address] [place] [address] PCP - General Family Medicine 06/10/24 Ariella Mathis DO [address] [place] [address] Referring Physician Neurology 01/02/24 Aida Reese NP [address] [place] [address] Nurse Practitioner Family Medicine 06/10/24 Bar Turner Relationship Specialty Start Date End Date Tapan Zazueta MD [address] [place] [address] PCP - General Family Medicine 06/10/24 Ariella Mathis DO [address], [place] [address] Referring Physician Neurology 01/02/24 Aida Reese NP [address] [place] [address] Nurse Practitioner Family Medicine 06/10/24 Bar Turner Relationship Specialty Start Date End Date Tapan Zazueta MD [address] [place] [address] PCP - General Family Medicine 06/10/24 Ariella Mathis DO [address], [place] [address] Referring Physician Neurology 01/02/24 Aida Reese NP [address] [place] [address] Nurse Practitioner Family Medicine 06/10/24 Bar Turner Relationship Specialty Start Date End Date Tapan Zazueta MD [address] [place] [address] PCP - General Family Medicine 06/10/24 Ariella Mathis DO [address] [place] [address] Referring Physician Neurology 01/02/24 Aida Reese NP [address] [place] [address] Nurse Practitioner Family Medicine 06/10/24 Bar Turner Relationship Specialty Start Date End Date Tapan Zazueta MD [address] [place] [address] PCP - General Family Medicine 06/10/24 Ariella Mathis DO [address] [place] [address] Referring Physician Neurology 01/02/24 Aida Reese NP [address] [place] [address]10[address] Nurse Practitioner Family Medicine 06/10/24 Bar Turner Relationship Specialty Start Date End Date Tapan Zazueta MD [address] [place] [address]10[address] PCP - General Family Medicine 06/10/24 Ariella Mathis DO [address], [place] [address] Referring Physician Neurology 01/02/24 Aida Reese NP [address] [place] [address] Nurse Practitioner Family Medicine 06/10/24 Bar Turner Relationship Specialty Start Date End Date Tapan Zazueta MD [address] [place] [address] PCP - General Family Medicine 06/10/24 Ariella Mathis DO [address] [place] [address] Referring Physician Neurology 01/02/24 Aida Reese NP [address] [place] [address] Nurse Practitioner Family Medicine 06/10/24 Bar Turner Relationship Specialty Start Date End Date Tapan Zazueta MD [address] [place] [address] PCP - General Family Medicine 06/10/24 Ariella Mathis DO [address] [place] [address] Referring Physician Neurology 01/02/24 Aida Reese NP [address] [place] [address] Nurse Practitioner Family Medicine 06/10/24 Bar Turner Relationship Specialty Start Date End Date Tapan Zazueta MD [address] [place] [address] PCP - General Family Medicine 06/10/24 Ariella Mathis DO [address] [place] [address] Referring Physician Neurology 01/02/24 Aida Reese NP [address] [place] [address] Nurse Practitioner Family Medicine 06/10/24 Bar Turner Relationship Specialty Start Date End Date Tapan Zazueta MD [address] [place] [address] PCP - General Family Medicine 06/10/24 Ariella Mathis DO [address] [place] [address] Referring Physician Neurology 01/02/24 Aida Reese NP [address] [place] [address] Nurse Practitioner Family Medicine 06/10/24 Bar Turner Relationship Specialty Start Date End Date Tapan Zazueta MD [address] [place] [address] PCP - General Family Medicine 06/10/24 Ariella Mathis DO [address], [place] [address] Referring Physician Neurology 01/02/24 Aida Reese NP [address] [place] [address] Nurse Practitioner Family Medicine 06/10/24 Bar Turner Relationship Specialty Start Date End Date Tapan Zazueta MD [address] [place] [address] PCP - General Family Medicine 06/10/24 Ariella Mathis DO [address] [place] [address] Referring Physician Neurology 01/02/24 Aida Reese NP [address] [place] [address] Nurse Practitioner Family Medicine 06/10/24 Bar Turner Relationship Specialty Start Date End Date Tapan Zazueta MD [address] [place] [address] PCP - General Family Medicine 06/10/24 Ariella Mathis DO [address] [place] [address] Referring Physician Neurology 01/02/24 Aida Reese NP [address] [place] [address] Nurse Practitioner Family Medicine 06/10/24 Bar Turner Relationship Specialty Start Date End Date Tapan Zazueta MD [address] [place] [address] PCP - General Family Medicine 06/10/24 Ariella Mathis DO [address] [place] [address] Referring Physician Neurology 01/02/24 Aida Reese NP [address] [place] [address] Nurse Practitioner Family Medicine 06/10/24 Bar Turner Relationship Specialty Start Date End Date Tapan Zazueta MD [address] [place] [address] PCP - General Family Medicine 06/10/24 Ariella Mathis DO [address] [place] [address] Referring Physician Neurology 01/02/24 Aida Reese NP [address] [place] [address] Nurse Practitioner Family Medicine 06/10/24 Bar Turner Relationship Specialty Start Date End Date Tapan Zazueta MD [address] [place] [address] PCP - General Family Medicine 06/10/24 Ariella Mathis DO [address] [place] [address] Referring Physician Neurology 01/02/24 Aida Reese NP [address] [place] [address]10[address] Nurse Practitioner Family Medicine 06/10/24 Bar Turner Relationship Specialty Start Date End Date Tapan Zazueta MD [address] [place] [address] PCP - General Family Medicine 06/10/24 Ariella Mathis DO [address] [place] [address] Referring Physician Neurology 01/02/24 Aida Reese NP [address] [place] [address]10[address] Nurse Practitioner Family Medicine 06/10/24 Goals (unrecognized [...] BE BASED ON THE PRIMARY CLINICAL RECORDS. [employer] [facility] provides no warranty or guarantee of the accuracy or completeness of information in this document.
--- NOTE | 2025-07-05 15:33 | XR_ITS ---
The [address] [address] Patient Name: JHONATAN MONTOYA MRN: [id number] date: 1955 Sex: F Assigned Patient Location: ER Current Patient Location: ER Accession/Order Number: [id number] Exam Date: 07/05/2025 15:45 Report Date: 07/05/2025 16:13 At the request of: VAN KING Procedure: XR chest 2V XR chest 2V 07/05/2025 4:01 PM SIGNS AND SYMPTOMS: Productive cough, shortness of breath, generalized weakness PROTOCOL: Frontal and lateral radiographs of the chest COMPARISON: 03/10/2025 FINDINGS: The trachea is midline. The heart and mediastinal structures are within normal limits. There is dependent atelectasis in the lung bases. The bony thorax is intact. XR/XR chest 2V IMPRESSION: Dependent atelectasis is noted in the right lung base. No focal consolidation is noted otherwise. Impression dictated by: Garland Haley M.D. 07/05/2025 4:13 PM Dictation Location: [facility] Electronically authenticated by: [id number] Y Date: 07/05/2025 16:13
--- NOTE | 2025-07-05 15:33 | ECG_ITS ---
The [facility] Test Date: 2025-07-05 Pat Name: JHONATAN MONTOYA Department: Room: - Gender: Female [employer]er: : 1955 Requested By: [id number] Order Number: [id number] Reading MD: HETAL SCALES Measurements Intervals [place] Rate: 86 P: 67 [place]: 128 QRS: -10 QRSD: 114 T: 73 QT: 384 QTc: 427 Interpretive Statements 1100 Sinus rhythm 2540 Incomplete left bundle branch block 8102 Low QRS voltage in chest leads 9150 abnormal ECG Compared to ECG 03/10/2025 15:55:12 Left bundle-branch block now present ST (T wave) deviation no longer present Electronically Signed On 07-09-2025 13:30:44 EDT by HETAL SCALES
[2025-07-05 15:44] LABS: Hematocrit 36.0 % (36.0-48.0); Hemoglobin 11.6 g/dL (12.0-16.0); Immature Granulocytes Abs Auto 0.12 10^3/uL (0.00-0.03); Immature Granulocytes Pct Auto 0.8 % (0.0-0.5); Lymphocytes Absolute Auto 1.5 10^3/uL (1.2-3.8); Mean Corpuscular HGB Conc 32.2 g/dL (29.9-35.2); Mean Corpuscular Hemoglobin 29.6 pg (26.7-34.0); Mean Corpuscular Volume 91.8 fL (81.0-99.0); Platelet Count 314 10^3/uL (150-450); Red Blood Count 3.92 10^6/uL (4.20-5.40); White Blood Count 15.9 10^3/uL (4.0-11.0)
--- NOTE | 2025-07-05 15:50 | ED.GENADUL1 ---
HPI HPI - General Adult General Chief complaint: Weakness Stated complaint: weak Time Seen by Provider: 07/05/25 15:24 Source: patient Mode of arrival: Wheelchair Limitations: no limitations History of Present Illness HPI narrative: The patient is a 69-year-old female with a longstanding history of COPD and CHF, with prior episodes of respiratory failure and pneumonia, presenting today with shortness of breath and a productive cough. She reports body aches, including neck and hip pain, but denies any recent falls. She uses 4 L nasal cannula oxygen at baseline; her current O2 saturation is 93%. She denies fever at home; her temperature in the ED is 99.5?F. Respiratory rate is 24, pulse 89, and blood pressure 172/85. She is alert and oriented, denies chest pain, and reports some congestion. She denies worsening shortness of breath at rest, but notes mild exertional dyspnea. She has no new pedal edema, weight gain, nausea, vomiting, abdominal pain, lightheadedness, or dizziness, but describes generalized weakness. Her most recent hospitalization was in March of this year. Related Data Home Medications ?Medication ?Instructions ?Recorded ?Confirmed magnesium oxide 400 mg (241.3 mg 400 mg PO DAILY 04/10/23 05/12/25 magnesium) tablet omeprazole 20 mg capsule,delayed 20 mg PO BID 04/10/23 05/12/25 release montelukast 10 mg tablet 10 mg PO DAILY 09/14/23 05/12/25 pregabalin 75 mg capsule 75 mg PO BID 11/25/23 05/12/25 trazodone 100 mg tablet 100 mg PO .qhs 11/25/23 05/12/25 baclofen 10 mg tablet 10 mg PO Q8H 02/03/24 05/12/25 albuterol sulfate 2.5 mg/3 mL 2.5 mg inhalation QID PRN 06/06/24 05/12/25 (0.083 %) solution for nebulization shortness of breath or wheezing sodium chloride 0.9 % for 2.5 ml inhalation Q8H PRN 06/28/24 05/12/25 nebulization shortness of breath or wheezing latanoprost 0.005 % eye drops 1 drp ophthalmic (eye) .HS 08/09/24 05/12/25 budesonide 160 mcg-glycopyr 9 2 inh inhalation Q12H 03/10/25 05/12/25 mcg-formot 4.8 mcg/actuation HFA inhaler (Breztri Aerosphere) nystatin 100,000 unit/gram topical 1 applic topical BID 03/10/25 05/12/25 cream paroxetine HCl 40 mg tablet 40 mg PO DAILY 03/10/25 05/12/25 pramipexole 0.25 mg tablet 0.25 mg PO .qhs 03/11/25 05/12/25 ensifentrine 3 mg/2.5 mL 2.5 ml inhalation BID 04/30/25 05/12/25 suspension for nebulization (Ohtuvayre) ferrous sulfate 325 mg (65 mg 325 mg PO DAILY 04/30/25 05/12/25 iron) tablet (iron) furosemide 40 mg tablet (Lasix) 20 mg PO DAILY 04/30/25 05/12/25 trospium 60 mg capsule,extended 60 mg PO DAILY 04/30/25 05/12/25 release 24 hr Previous Rx's ?Medication ?Instructions ?Recorded guaifenesin 600 mg tablet, 600 mg PO Q12H 7 days #14 tabs 03/16/25 extended release 12 hr (Mucus Relief ER) insulin glargine 100 unit/mL (3 15 unit (0.15 mL) subcut QD #15 mL 03/16/25 mL) subcutaneous pen (Lantus Solostar U-100 Insulin) ipratropium 0.5 mg-albuterol 3 mg 3 ml inhalation Q4H PRN Shortness 03/16/25 (2.5 mg base)/3 mL nebulization Of Breath Or Wheezing 30 days #180 soln mL levofloxacin 500 mg tablet 500 mg PO DAILY 5 days #5 tabs 03/16/25 prednisone 10 mg tablet 10 mg PO .as directed #49 tabs 03/16/25 Allergies Allergy/AdvReac Type Severity Reaction Status Date / Time No Known Drug Allergies Allergy Verified 07/05/25 15:15 Opioid HPI Opioid Management Most Recent Opioid Data: Last Pain Scale 5 Today, 15:15 Last Pain Intensity 0 03/11/25, 14:27 Last ORT Total Score 0 03/11/25, 01:00 Last ORT Risk Category Low Risk 03/11/25, 01:00 [facility] Medical History (Updated 07/05/25 @ 17:34 by CHRISTINE ISLAS) Diet-controlled diabetes mellitus ?E11.9 - Type 2 diabetes mellitus without complications (ICD-10) Tracheobronchomalacia ?J39.8 - Other specified diseases of upper respiratory tract (ICD-10) 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 - Critical illness myopathy (ICD-10) Upper respiratory infection ?J06.9 - Acute upper respiratory infection, unspecified (ICD-10) Hypoxemia ?R09.02 - Hypoxemia (ICD-10) Acute and chronic respiratory failure ?J96.20 - Acute and chronic respiratory failure, unspecified whether with hypoxia or hypercapnia (ICD-10) Weakness ?R53.1 - Weakness (ICD-10) RLL pneumonia ?J18.9 - Pneumonia, unspecified organism (ICD-10) Acute viral syndrome ?B34.9 - Viral infection, unspecified (ICD-10) Asthma exacerbation in COPD ?J44.1 - Chronic obstructive pulmonary disease with (acute) exacerbation (ICD-10) Hypomagnesemia ?E83.42 - Hypomagnesemia (ICD-10) Acute hypokalemia ?E87.6 - Hypokalemia (ICD-10) Pneumonia ?J18.9 - Pneumonia, unspecified organism (ICD-10) Melanoma ?C43.9 - Malignant melanoma of skin, unspecified (ICD-10) Mediastinal lymphadenopathy ?R59.0 - Localized enlarged lymph nodes (ICD-10) Restrictive lung disease ?J98.4 - Other disorders of lung (ICD-10) CAD (coronary artery disease) ?I25.10 - Atherosclerotic heart disease of [place] coronary artery without angina pectoris (ICD-10) Chronic heart failure with preserved ejection fraction (HFpEF) ?I50.32 - Chronic diastolic (congestive) heart failure (ICD-10) Acute exacerbation of COPD with asthma ?J44.1 - Chronic obstructive pulmonary disease with (acute) exacerbation (ICD-10) ?J45.901 - Unspecified asthma with (acute) exacerbation (ICD-10) Lumbar radiculopathy ?M54.16 - Radiculopathy, lumbar region (ICD-10) Encounter for long-term opiate analgesic use ?Z79.891 - long-term (current) use of opiate analgesic (ICD-10) Failed back syndrome ?M96.1 - Postlaminectomy syndrome, not elsewhere classified (ICD-10) Acute exacerbation of chronic low back pain ?M54.50 - Low back pain, unspecified (ICD-10) ?G89.29 - Other chronic pain (ICD-10) Thoracic spondylosis ?M47.814 - Spondylosis without myelopathy or radiculopathy, thoracic region (ICD-10) Hypoxia ?R09.02 - Hypoxemia (ICD-10) URI (upper respiratory infection) ?J06.9 - Acute upper respiratory infection, unspecified (ICD-10) Orthostasis ?I95.1 - Orthostatic hypotension (ICD-10) Community acquired pneumonia ?J18.9 - Pneumonia, unspecified organism (ICD-10) Severe malnutrition ?E43 - Unspecified severe protein-calorie malnutrition (ICD-10) Acute exacerbation of chronic obstructive pulmonary disease (COPD) ?J44.1 - Chronic obstructive pulmonary disease with (acute) exacerbation (ICD-10) Severe persistent asthma with exacerbation ?J45.51 - Severe persistent asthma with (acute) exacerbation (ICD-10) Morbid obesity ?E66.01 - Morbid (severe) obesity due to excess calories (ICD-10) Other pulmonary collapse ?J98.19 - Other pulmonary collapse (ICD-10) Chronic respiratory failure with hypoxia ?J96.11 - Chronic respiratory failure with hypoxia (ICD-10) Bronchitis ?J40 - Bronchitis, not specified as acute or chronic (ICD-10) Acute exacerbation of chronic obstructive pulmonary disease ?J44.1 - Chronic obstructive pulmonary disease with (acute) exacerbation (ICD-10) Myofascial pain ?M79.18 - Myalgia, other site (ICD-10) Greater trochanteric bursitis ?M70.60 - Trochanteric bursitis, unspecified hip (ICD-10) Osteoarthritis of right hip ?M16.11 - Unilateral primary osteoarthritis, right hip (ICD-10) Lumbar spondylosis ?M47.816 - Spondylosis without myelopathy or radiculopathy, lumbar region (ICD-10) Lumbar postlaminectomy syndrome ?M96.1 - Postlaminectomy syndrome, not elsewhere classified (ICD-10) Lumbar stenosis with neurogenic claudication ?M48.062 - Spinal stenosis, lumbar region with neurogenic claudication (ICD-10) Depression ?F32.A - Depression, unspecified (ICD-10) Chronic low back pain ?M54.50 - Low back pain, unspecified (ICD-10) ?G89.29 - Other chronic pain (ICD-10) Hypoxia ?R09.02 - Hypoxemia (ICD-10) Heart murmur ?R01.1 - Cardiac murmur, unspecified (ICD-10) Chronic obstructive pulmonary disease ?J44.9 - Chronic obstructive pulmonary disease, unspecified (ICD-10) Asthma ?J45.909 - Unspecified asthma, uncomplicated (ICD-10) Surgical History H/O cataract removal with insertion of prosthetic lens ?Z98.49 - Cataract extraction status, unspecified eye (ICD-10) ?Z96.1 - Presence of intraocular lens (ICD-10) Status post hip surgery ?Z98.890 - Other specified postprocedural states (ICD-10) H/O foot surgery ?Z98.890 - Other specified postprocedural states (ICD-10) H/O tubal ligation ?Z98.51 - Tubal ligation status (ICD-10) History of lumbar fusion ?Z98.1 - Arthrodesis status (ICD-10) Family History Mother Family history of CHF (congestive heart failure) Family history of hypertension Father Family history of hypertension Family history of myocardial infarction Social History (Updated 01/08/25 @ 17:25 by Yuni Loza RN) Within the past year, how often did you have a drink containing alcohol: never Score interpretation: A score less than 3 is consistent with normal alcohol consumption. Smoking status: Never smoker Second hand tobacco smoke exposure: No Non-prescribed substance use: denies use Previous occupational history: retired Highest level of school completed/degree received: Associate degree: occupational, technical, vocational program Are you now , , , , never or living with a partner: In a typical week, how many times do you talk on the telephone with family, friends, or neighbors: 3 or more times per week How often do you get together with friends or relatives: 3 or more times per week How often do you attend anabaptist or advent services: 4 or more times per year Do you belong to any clubs or organizations such as anabaptist groups unions, fraternal or athletic groups, or school groups: no Total score: 2 Score interpretation: A score of greater than or equal to 2 indicates the lowest level of social isolation. Little interest or pleasure in doing things: not at all Feeling down, depressed, or hopeless: not at all Feel stressed/tense/nervous/anxious/difficulty sleeping: not at all Do you think of yourself as: straight/heterosexual Gender Identity: female Exam Narrative Exam Narrative: General: Alert, oriented x3, resting in bed, appears uncomfortable but not acutely toxic. HEENT: Unremarkable. Neck / Musculoskeletal: Tenderness in cervical paraspinal muscles; able to move neck through full range of motion. Hip range of motion normal. Cardiovascular: Heart sounds regular rate and rhythm; no murmurs, rubs, or gallops. Respiratory: Diffuse rhonchi and crackles throughout both lung [place]; uncertain if baseline. Respiratory effort normal at rest. Abdomen: Soft, nontender, nondistended. Extremities: No pedal edema; distal pulses intact in all four extremities. Skin: Intact; no cyanosis or pallor noted. Constitutional Vital Signs, click to edit/add: Last Vital Signs Temp 99.5 F 07/05/25 15:15 Pulse 76 07/05/25 17:10 Resp 20 07/05/25 17:10 BP 134/70 07/05/25 17:08 Pulse Ox 95 07/05/25 17:10 O2 Del Method Nasal Cannula 07/05/25 17:02 O2 Flow Rate 4 07/05/25 17:02 Course Vital Signs Vital signs: Vital Signs Temperature 99.5 F 07/05/25 15:15 Pulse Rate 89 07/05/25 15:15 Respiratory Rate 24 H 07/05/25 15:15 Blood Pressure 172/85 H 07/05/25 15:15 Pulse Oximetry 93 L 07/05/25 15:15 Oxygen Delivery Method Nasal Cannula 07/05/25 15:15 Oxygen Delivery Flow Rate 4 07/05/25 15:15 Temperature 99.5 F 07/05/25 15:15 Pulse Rate 76 07/05/25 17:10 Respiratory Rate 20 07/05/25 17:10 Blood Pressure 134/70 07/05/25 17:08 Pulse Oximetry 95 07/05/25 17:10 Oxygen Delivery Method Nasal Cannula 07/05/25 17:02 Oxygen Delivery Flow Rate 4 07/05/25 17:02 Medical Decision Making MDM Narrative Medical decision making narrative: The patient is a 69-year-old female with a history of COPD and CHF, presenting with shortness of breath, productive cough, and generalized body aches. She is on baseline oxygen 4 L NC with O2 saturation 93%. Repotedly gets lower on ambulation, but unable to ambulate here in the ED due to how poor she was feeling. On exam, she has diffuse rhonchi and crackles, no pedal edema, normal extremity perfusion, and mild cervical paraspinal tenderness. Labs are notable for WBC 15.9, potassium 2.9, magnesium 1.5, troponin 19.6, BNP 428, and lactic acid 2.5. Chest X-ray shows dependent atelectasis in the right lung base with no focal consolidation. In the ED, she received IV potassium 20 mEq, oral magnesium 400 mg, Rocephin and Zithromax, Solumedrol, and Duoneb treatments. Given her history of COPD with multiple prior exacerbations, leukocytosis, hypokalemia and hypomagnesemia, mild troponin elevation, and mild lactic acidosis, she is being admitted for management of acute COPD exacerbation, electrolyte replacement, continued respiratory therapy, and monitoring of cardiac and respiratory status. The case was discussed with the hospitalist team, who will oversee her inpatient care. Medical Records Medical records reviewed: Yes I reviewed the patient's medical records Lab Data Lab results reviewed: Yes I reviewed the patient's lab results Labs: Lab Results 07/05/25 Range/Units 15:25 WBC 15.9 H (4.0-11.0) 10^3/uL RBC 3.92 L (4.20-5.40) 10^6/uL Hgb 11.6 L (12.0-16.0) g/dL Hct 36.0 (36.0-48.0) % MCV 91.8 (81.0-99.0) fL MCH 29.6 (26.7-34.0) pg MCHC 32.2 (29.9-35.2) g/dL RDW 14.2 (11.0-15.0) % Plt Count 314 (150-450) 10^3/uL MPV 9.2 L (9.5-13.5) fL Neut % (Auto) 82.6 H (43.0-75.0) % Lymph % (Auto) 9.1 L (20.5-60.0) % [place] % (Auto) 5.6 (1.7-12.0) % Eos % (Auto) 1.5 (0.9-7.0) % Baso % (Auto) 0.4 (0.2-2.0) % Neut # (Auto) 13.1 H (1.4-6.5) 10^3/uL Lymph # (Auto) 1.5 (1.2-3.8) 10^3/uL [place] # (Auto) 0.9 H (0.3-0.8) 10^3/uL Eos # (Auto) 0.2 (0.0-0.7) 10^3/uL Baso # (Auto) 0.1 (0.0-0.1) 10^3/uL Abs Immat Gran (auto) 0.12 H (0.00-0.03) 10^3/uL Imm/Tot Granulo (auto) 0.8 H (0.0-0.5) % PT 12.0 H (9.0-11.6) sec INR 1.15 Sodium 140 (136-145) mmol/L Potassium 2.9 L* (3.5-5.1) mmol/L Chloride 101 (98-107) mmol/L Carbon Dioxide 26.6 (21.0-32.0) mmol/L Anion Gap 15.3 BUN 9.0 (7.0-18.0) mg/dL Creatinine 1.14 H (0.55-1.02) mg/dL Est GFR ( Amer) 57 L (>=60 mL/min/1.73m^2) Est GFR (Non-Af Amer) 47 L (>=60 mL/min/1.73m^2) BUN/Creatinine Ratio 7.9 Glucose 135 H (74-106) mg/dL Lactate 2.5 H* (0.4-2.0) mmol/L Calcium 8.6 (8.5-10.1) mg/dL Magnesium 1.5 L (1.8-2.4) mg/dL Total Bilirubin 0.3 (0.2-1.0) mg/dL AST 16 (15-37) U/L ALT 18 (14-59) U/L Alkaline Phosphatase 100 (46-116) U/L Troponin I High Sens 19.6 (4.0-51.3) pg/mL NT-Pro-B Natriuret Pep 428.0 (<=900.0) pg/mL Total Protein 8.0 (6.4-8.2) g/dL Albumin 2.8 L (3.4-5.0) g/dL Globulin 5.2 g/dL Albumin/Globulin Ratio 0.5 ECG Data Attestation: ?I have reviewed the pertinent ECG results. Prior ECG tracings: available for review Interpretation: Patient's EKG was performed at 1520. She has a sinus rhythm with a ventricular beat of 86 bpm. OR interval 128, QRS of 114, QT/QTc of 384/427. She has an incomplete left bundle branch due to pressure elevation. No changes from March of earlier this year. Discharge Plan Discharge Chief Complaint: Weakness Clinical Impression: Acute exacerbation of chronic obstructive pulmonary disease, Hypomagnesemia, Hypokalemia Patient Disposition: Admitted as Observation Time of Disposition Decision: 17:34
[2025-07-05 16:09] LABS: INR 1.15; Prothrombin Time 12.0 sec (9.0-11.6)
[2025-07-05 16:18] LABS: Magnesium 1.5 mg/dL (1.8-2.4); NT Pro B Type Natriuretic Pept 428.0 pg/mL (<=900.0)
[2025-07-05] MEDS: AZITHROMYCIN 500 MG in 0.9 % SODIUM CHLORIDE 250 ML 250 MG IV (16:26)
[2025-07-05 16:28] LABS: Sodium 140 mmol/L (136-145)
[2025-07-05 16:29] LABS: Alanine Aminotransferase 18 U/L (14-59); Alkaline Phosphatase 100 U/L (46-116); Anion Gap 15.3; Aspartate Amino Transferase 16 U/L (15-37); Blood Urea Nitrogen 9.0 mg/dL (7.0-18.0); Calcium 8.6 mg/dL (8.5-10.1); Carbon Dioxide 26.6 mmol/L (21.0-32.0); Chloride 101 mmol/L (98-107); Estimated GFR (African America 57 (>=60 mL/min/1.73m^2); Estimated GFR (Non-African Ame 47 (>=60 mL/min/1.73m^2); Glucose 135 mg/dL (74-106)
[2025-07-05 16:30] LABS: Albumin Globulin Ratio 0.5; Albumin Level 2.8 g/dL (3.4-5.0); Globulin 5.2 g/dL; Total Protein 8.0 g/dL (6.4-8.2)
[2025-07-05 16:39] LABS: Potassium 2.9 mmol/L (3.5-5.1)
[2025-07-05 16:40] LABS: Lactate/Lactic Acid 2.5 mmol/L (0.4-2.0)
[2025-07-05] MEDS: IPRATROPIUM/ALBUTEROL SULFATE 3 ML AMPUL.NEB IH ×2 (17:01→21:01)
[2025-07-05] MEDS: POTASSIUM CHLORIDE IN WATER 10 MEQ/100 ML PREMIX 100 MEQ IV ×2 (17:58→19:05)
[2025-07-05] MEDS: 0.9 % SODIUM CHLORIDE 1,000 ML 100 ML IV (17:58)
--- OUTSIDE RECORDS SUMMARY | 2025-07-05 20:28 | XMS_ITS | CCD ---
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 Name Role Phone Steph Collier Attending Provider Unavailable Chantel Rainey Primary Care Provider Unavailabl e JoanaHerberth Attending Provider Unavailable Unavailable Primary Care Provider Unavailabl e UNKNOWN, PHYSICIAN Referring Unavailable JOO LINN Attending Unavailable JOO LINN Admitting Unavailable UNKNOWN, PHYSICIAN Primary Care Unavailable Rena Hurd Unavailable Joana, Herberth Unavailable Gato Domingo Unavailable Steph Collier Attending Provider [phone] MD Gato Domingo Attending Provider MD Nicky Ohara Primary Care Provider [phone] Gilma Trent Unavailable JOANA, HERBERTH Attending Unavailable [...] e FAWANASTASIA, MESSER H Primary Care Unavailable [place], DR BRITTANY Elizondo Consulting Unavailable DARWIN, DR [...] Unavailable Tapan Zazueta MD Primary Care Provider Aida Reese NP Unavailable MD Allan Lacey Attending Provider KELI Reese Primary Care [facility] TAPAN ZAZUETA Primary Care Physician Allan Lacey MD Attending Provider Mary Ann BRANDT-Aida Pastrana Primary Care Provid er Allan Lacey Attending Unavailable Aida Reese Primary Care Unavaila Allan Fregoso Admitting Unavailable Allan Lacey Attending Unavailable Aida Reese Primary Care Unavaila Allan Fregoso Admitting Unavailable Reese OCULAR CARE AIDE, Aida Unavailable OMBALLI, MOHAMED Referring Unavailable RADHA, [...] MAIER Attending Unavailable RAMIN MAIER Referring Unavailable RMAIN MAIER Referring Unavailable PETJESSICA PATTERSON Attending Unavailable REESEAIDA Attending Unavailabl e REESEAIDA Attending Unavailabl e REESEAIDA Attending Unavailabl e AICHHOLZ KAYLENE Attending Unavailable AICHHOLZ KAYLENE Attending Unavailable AICHHOLZ, KAYLENE Attending Unavailable AICHHOLZ, KAYLENE Attending Unavailable AICHHOLZ, KAYLENE Attending Unavailable REESEAIDA Attending Unavailabl e JAYNA GOODE Attending Unavailable REESEAIDA Referring Unavailabl e REESEAIDA Attending Unavailabl e Alicia DRAPER, Vandanarius Johnson Attending Unavailable Alicia DRAPER, Andrius Alex Attending Unavailable Alicia DRAPER, Andrius Johnson Attending Unavailable Amalia Stephens Attending Unavailable Amalia Stephens Attending Unavailable Unavailable Unavailable Unavailable Allergies Allergy Classification Reported Allergen(s) Allergy Type Date of Onset Reaction(s) Facility (20 sources) fentaNYL; Translations: [fentanyl] Drug Allergy 07-07-20 Hallucinations (finding) [facility] (1 source) linezolid; Translations: [LINEZOLID] Drug Allergy 03-17-20 [facility] Repository (20 sources) Vancomycin; Translations: [VANCOMYCIN] Drug Allergy 03-17-20 Unknown [facility] Repository (14 sources) DENIES METAL SENSITITIVITY Propensity to adverse reactions 03-14-20 Unknown, Unknown Reaction [facility] Medications Current Medications Medication Drug Class(es) [...] Inhalation, Daily Start Date: 10/15/24 Status: Ordered Nqtbmdcomry-Srtlqxody-Bzssgq (Trelegy Ellipta) 200-62.5-25 MCG/ACT aerosol powder (20 sources) End: 04-09-2025 take 1 puff(s) by mouth in the morning Tkvuilhcedi-Yadvlfewm-Jfsxkj (Trelegy Ellipta) 200-62.5-25 MCG/ACT aerosol powder Take 1 puff by mouth in the morning. 04/09/2025 Discontinued (Ineffective) take 1 puff(s) by mo uth in the morning Bjwpjimlkmc-Flffqvmrx-Yvtssq (Trelegy El lipta) 200-62.5-25 MCG/ACT aerosol powder Take 1 puff by mouth in the morning. Active Gnsgkllpqgx-Gzisqljpv-Mzrnpe er (7 sources) Start: 03-14-2024 Cjgbwnvlcba-Tfijztybh-Obtbtf er (Trelegy Ellipta) 200-62.5-25 mcg blister with device Active 1 INH INHALATION Daily March 13, 2024 11:00pm Start: 03-14-2024 Fluticasone-Um eclidin-Vilanter (Trelegy Ellipta) 200-62.5-25 mcg blister with device Active 1 INH INHALATION Daily March 14, 2024 12:00am Start: 12-08-2022 End: 03-14-2024 Mqbxtfuwtuh-Woacunkwo-Nnjump er (Trelegy Ellipta) 200-62.5-25 mcg blister with device Discontinued 1 INH INHALATION As Directed December 08, 2022 12:00am March 14, 2024 9:40am Start: 12-08-2022 End: 03-14-2024 Gycrsnetnop-Cpunrisyj-Gklnbf er (Trelegy Ellipta) 200-62.5-25 mcg blister with [...] days 22 g 06/05/2025 06/15/2025 Active nystatin 411859 unt/ml topical cream (7 sources) Polyene Antifungal [...] (Reorder) Start: 03-14-2024 take 1 capsule by [facility] twice daily Omeprazole 20 mg capsule,delayed release(DR/EC) Active 20 MG PO Twice daily March 13, 2024 11:00pm Start: 07-07-2017 End: 03-14-2024 take 1 tablet by mouth once daily Omeprazole 20 mg Tablet,Delayed Release (Dr/Ec) Discontinued 20 MG PO Daily July 06, 2017 11:00pm March 14, 2024 9:41am take 1 capsule by [facility] every twelve hours Omeprazole 20 MG 1 CAPSULE Orally TWICE A DAY Active take 1 capsule by [facility] once daily Omeprazole 20 MG 1 [...] BID, # 60 tab(s), Refills(s) 11, Pharmacy: [facility], 163, cm, 10/15/24 14:36:00 [...] 1 puff(s) by inhalation twice daily Ipratropium [place] (Atrovent Hfa) 17 mcg/actuation Hfa Aerosol Inhaler [...] XR Hip - right 3 [place] [address] XRay Report Signed Patient: DIANA CHAMPION MR#: [id number] : 1955 Acct:[id number] Age/Sex: 69 / F ADM Date: 04/30/25 Loc: RAD Attending Dr: Jose Saucedo NP Ordering Physician: Jose Saucedo NP Date of Service: 04/30/25 Procedure(s): XR hip RT min 2V Accession Number(s): [id number] cc: Kaylene López NP; Jose Saucedo NP [address] [address] Patient Name: DIANA CHAMPION MRN: [id number] date: 1955 Sex: F Assigned Patient Location: RAD Current Patient Location: RAD Accession/Order Number: [id number] Exam Date: 04/30/2025 13:45 Report Date: 04/30/2025 [...] Jr., D.O. 04/30/2025 1:46 PM Dictation Location: [place] [address] Electronically authenticated by: [id number] Y Date: 04/30/2025 13:46 Dictated By: Marcos Medina M.D. Signed By: 04/30/25 1349 DD/ 1346 TD/TT: General Ophthalmologist: AMINTA Radiology Radiologhernandez altman MD - 04/30/2025 [place] [address] XRay Report Signed Patient: DIANA CHAMPION MR#: [id number] : 1955 Acct:[id number] Age/Sex: 69 / F ADM Date: 04/30/25 Loc: NAKITA Attending Dr: Jose Saucedo NP Ordering Physician: Jose Saucedo NP Date of Service: 04/30/25 Procedure(s): XR hip RT min 2V Accession Number(s): [id number] cc: Kaylene López NP; Jose Saucedo NP The [address] [address] Patient Name: DIANA CHAMPION MRN: [id number] date: 1955 Sex: F Assigned Patient Location: RAD Current Patient Location: RAD Accession/Order Number: [id number] Exam Date: 04/30/2025 13:45 Report Date: 04/30/2025 [...] Jr., D.O. 04/30/2025 1:46 PM Dictation Location: [place] [address] Electronically authenticated by: [id number] Y Date: 04/30/2025 13:46 Dictated By: Marcos Medina M.D. Signed By: 04/30/25 1349 DD/ 134 TD/TT: General Ophthalmologist: [facility] Radiology Study observation (narrative) [facility] XR Hip - right 3 ViewsOrdere d By: Radiologist Radiology on 04-30-2025 [facility] [employer] Work Phone: Ambulatory Visit Summaryon 0 03-24-2025 [...] MAG BLOUNT PA-C Where: [facility] [address] [place] [address]- Medications What How Much When Instructions Unchanged [...] choosing us for your care. Normal [facility] Urology Office/Clinic Noteon 03-24-2025 Urology Office/Clinic Note [...] rashes or suspicious lesions Assessment/Plan CHF - [facility] [place] CKD - Joana COPD/Pulm - Samsa/Omballi. Required [...] IR BID. Pt currently rehabbing at [facility] [place] d/t double pneumonia. Has been there x1 week, plan is to hopefully return home within the next week or so. F/u 3 mos to assess efficacy. Ordered: Body Mass Index (BMI) documented 3008F Current tobacco non-user 1036F Depression Screening Negative 3352F E&M of Est. Patient Moderate 30-39 Min 06380 Medication list documented in medical record 1159F [...] Substance Abuse (more content not included)... Normal [facility] Comment on above: Result Comment: Elec tronically Signed By: JOSE ALEJANDRO MICHAUD, MAG Hester\.victorina\Date and Time Signed: 03/24/25 10:44 EDT MG Breast - bilateral Screen ingon 03-03-2025 [place] [address] Mammography Report Signed Patient: DIANA CHAMPION MR#: [id number] : 1955 Acct:[id number] Age/Sex: 69 / F ADM Date: 03/03/25 Loc: MAMMO Attending Dr: Kaylene López NP Ordering Physician: Kaylene López NP Results: Date of Service: 03/03/25 Follow Up: Procedure(s): MM screening mammo BI Accession Number(s): [id number] cc: Kaylene López NP Patient Name: DIANA CHAMPION MR#: [id number] : 1955 Exam Date: 03/03/2025 Ordering Doctor: [...] Family Cancers None LOCATION: [facility] BREAST COMPOSITION: The breasts are almost [...] M.D. Signed By: 03/03/251642 DD/ 41 TD/TT: General Ophthalmologist: [facility] RadiologyAdeeloghernandez altman MD - 03/03/2025 [place] [address] Mammography Report Signed Patient: DIANA CHAMPION MR#: [id number] : 1955 Acct:[id number] Age/Sex: 69 / F ADM Date: 03/03/25 Loc: MAMMO Attending Dr: Kaylene López NP Ordering Physician: Kaylene López NP Results: Date of Service: 03/03/25 Follow Up: Procedure(s): MM screening mammo BI Accession Number(s): [id number] cc: Kaylene López NP Patient Name: DIANA CHAMPION MR#: [id number] : 1955 Exam Date: 03/03/2025 Ordering Doctor: [...] Family Cancers None LOCATION: [facility] BREAST COMPOSITION: The breasts are almost [...] M.D. Signed By: 03/03/251642 DD/ 41 TD/TT: General Ophthalmologist: [facility] Radiology Study observation (narrative) [facility] MG Breast - bilateral Screen ingOrdered By: Radiologist Radiology on 03-03-2025 [facility] Work Phone: Office Visiton 01-23-2025 Follow-up visit [id number] Nell Champion 1955 F Date Provider Department Center 01/23/2025 271-LOYDA, HETAL CARD [facility] Family History Problem Relation Age of Onset Heart failure Mother Heart disease Father Family Status - Relation Status Age at Mother Father Level of Service:03662 [place] OFFICE/OUTPATIENT ESTABLISHED LOW MDM 20 MIN Normal [facility] Laboratory - Microbiology an d Antimicrobial susceptibilityon 01-02-2025 SARS-CoV-2 (COVID-19) RNA KAYLEE+probe Ql (Unsp spec) Negative [facility] No Panel Informationon 01-02 FLU A Negative [facility] FLU B Negative [facility] Interpretation and review of laboratory results Normal [facility] XR Hip - right 3 [facility] Result: AP and Lateral right hip No acute fracture Mild SI joint arthritic changes Pt has severe arthritis to right hip joint with subchondral cyst and sclerosis to femoral head and acetabulum. Stable hardware left hip on AP view Impression: Severe right hip arthritis. [facility] Radiology Study observation (narrative) [facility] XR Knee - right 1 or 2 [...] dislocation. 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 Additional details: Previous accession number: [id number] [facility] No Panel InformationOrdered By: Pat Mcfarland on 12-13-2024 [facility] [employer] Work Phone: Abstracton 10-24-2024 Abstract [id number] Nell Champion 1955 F Date Provider Department Center 10/24/2024 EMELIA MORALES ONC DCC Family History Problem Relation Age of Onset Heart failure Mother Heart disease Father Family Status - Relation Status Age at Mother Father Normal [facility] C Urineon 10-18-2024 Bacteria identified Cx [...] interp EC Entclo Klepne Antibiotic CUCO Dilutn CUOC Interp CUCO Dilutn CUCO Interp CUCO Dilutn [...] Locations R1: This test was performed at: [facility], [address] [place] [address], [phone] , [place], Normal [facility] Comment on above: Performed By: #### 2 [id number] #### [facility] Laboratory [address] [place] [address] Ambulatory Visit Summaryon 1 12-16-2023 Ambulatory Visit [...] MAG BLOUNT PA-C Where: [facility] [address] [place] [id number]- Medications What How Much When Instructions Unchanged [...] for choosing us for your care. Latanya [facility] No Panel Informationon 10-11 Type of [...] taken Amount of lidocaine used: 0.5 cc [facility] 36on 09-20-2024 36 Faxed to [facility]. Ticker put in for Nov 2024 for patient to be scheduled with Dr. Church. [facility] 36on 09-12-2024 36 Patient called requesting clearance prior to cataract surgery. 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 Please advise. Thanks. [facility] EPITHELIAL CELLSon 4 Epithelial cells LM Ql (Urine sed) Epithelial Cells Few [facility] Healthcare No Panel Informationon 08-13 [facility] RESULT 1on 08-13-2024 RESULT 1 Result 1 Moderate budding yeast present. [facility] RESULT 2on 08-13-2024 RESULT 2 Result 2 Few gram positive cocci [facility] RESULT 3on 08-13-2024 RESULT 3 Result 3 OCULAR CARE AIDE [facility] RESULT 4on 08-13-2024 RESULT 4 Result 4 OCULAR CARE AIDE [facility] WHITE BLOOD CELLSon 08-13-20 24 WHITE BLOOD CELLS White Blood Cells [facility] WHITE BLOOD CELLS Few [facility] ALL CBC WITH AUTO DIFFon BASOPHILS ABSOLUTE AUTO 0.1 [facility] Basophils/100 WBC (Bld) 0.5 % 0.2 - 2.0 % [facility] Eosinophils/100 WBC (Bld) 1.5 % 0.9 - 7.0 % [facility] Erythrocyte distribution width (RBC) [Ratio] 13.0 % 11.0 - 15.0 % [facility] Hematocrit (Bld) [Volume fraction] 39.0 % 36.0 - 48.0 % [facility] Hemoglobin (Bld) [Mass/Vol] 12.2 g/dL 12.0 - 16.0 g/dL [facility] IMMATURE GRANULOCYTES ABS AUTO 0.22 High [facility] Immature granulocytes/100 WBC (Bld) 2.4 % High 0.0 - 0.5 % [facility] Interpretation and review of laboratory results Abnormal [facility] LYMPHOCYTES ABSOLUTE AUTO 1.6 [facility] Lymphocytes/100 WBC (Bld) 17.2 % Low 20.5 - 60.0 % [facility] MCH (RBC) [Entitic mass] 29.7 pg 26.7 - 34.0 pg [facility] MCHC (RBC) [Mass/Vol] 31.3 g/dL 29.9 - 35.2 g/dL [facility] MCV (RBC) [Entitic vol] 94.9 fL 81.0 - 99.0 fL [facility] MONOCYTES ABSOLUTE AUTO 0.8 [facility] Monocytes/100 WBC (Bld) 8.3 % 1.7 - 12.0 % [facility] NEUTROPHILS ABSOLUTE AUTO 6.4 [facility] Neutrophils/100 WBC (Bld) 70.1 % 43.0 - 75.0 % [facility] Platelet mean volume (Bld) [Entitic vol] 8.8 fL Low 9.5 - 13.5 fL [facility] TB EO # 0.1 [facility] TB PLT 266 [facility] TB RBC 4.11 Low [facility] TB WBC 9.1 [facility] Telemedicineon 07-11-2024 Telemedicine [id number] Nell Champion 1955 F Date Provider Department Center 07/11/2024 EMELIA MORALES DCC ONC DCC Family History Problem Relation Age of Onset Heart failure Mother Heart disease Father Family Status - Relation Status Age at Mother Father Level of Service:28521 [place] PHYS/QHP TELEPHONE EVALUATION 21-30 MIN () Reason for Visit and Comments: Telehealth Phone Visit [902] - Tracheobronchomalacia follow up per Dr Canseco. [facility] HPon 07-02-2024 H&P reviewed. The patient was [...] deficit PSYCH: appropriate mood, affect, and judgement. [facility] NURSNOTEon 07-02-2024 NURSNOTE Follow up at [facility] with Matthew Vargas May resume a Regular Diet and home medications. Normal [facility] NURSNOTE Bronchoscopy Finding s: Tracheobronchomalacia [facility] Telephoneon 06-27-2024 Telephone [id number] Nell Champion 1955 F Date Provider Department Center 06/27/2024 910-SOURAV ESCOBAR DCC ONC DCC Family History Problem Relation Age of Onset Heart failure Mother Heart disease Father Family Status - Relation Status Age at Mother Father [facility] Prep for Procedureon 024 Prep for Procedure [id number] Nell Champion 1955 F Date Provider Department Center 06/26/2024 383-EMELIA YOO [facility] PREOP [place] [facility] Family History Problem Relation Age of Onset Heart failure Mother Heart disease Father Family Status - Relation Status Age at Mother Father [facility] HPon 06-25-2024 HP ---- -------- [...] me. -------- Pulmonary Telemedicine Visit Note Patient: Diaan Champion Age: 68 y.o. : 1955 Account No.: [id number] Referring physician: Dr. Bo Mcclain Chief complaint: Recurreny pneumonia HPI Diana Champion is a 68 y.o. female with PMHx of reportedly COPD, chronic hypoxic respiratory failure on 2L home O2 who is presenting to clinic as a new patient after being referred by Dr. Bo Baker of [facility]. 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 Yes Historical Provider, tqeqmhrhjyu-riwljxwii-ug lanter 100-62.5-25 mcg blister with device Yes [...] ER ta (more content not included)... Normal [facility] Telemedicineon 06-25-2024 Telemedicine [id number] Nell Champion 1955 Date Provider Department Center 06/25/2024 Nicholas-EMELIA YOO [facility] ONC DCC Family History Problem Relation Age of Onset Heart failure Mother Heart disease Father Family Status - Relation Status Age at Mother Father Level of Service:31711 [place] PHYS/QHP TELEPHONE EVALUATION 21-30 MIN () Reason for Visit and Comments: New Patient [632] - OCULAR CARE AIDE REFERRED BY BO 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 CT DONE 04-11-24 AND 06-07-24 AT [facility]. RECORDS SCANNED INTO MEDIA. FILMS REQUESTED- requested 3 times and [employer] IS DOWN. Could not get films. Normal [facility] Office Visiton 05-13-2024 Follow-up visit [id number] Nell Champion 1955 F Date Provider Department Center 05/13/2024 Siddharth-HETAL CHURCH [facility] Family History Problem Relation Age of Onset Heart failure Mother Heart disease Father Family Status - Relation Status Age at Mother Father Level of Service:21992 [place] OFFICE/OUTPATIENT ESTABLISHED MOD MDM 30 MIN [facility] Erythrocyte distribution wid th Auto (RBC) [Ratio]on 03-06-2024 Erythrocyte distribution width (RBC) [Ratio] 13.2 % 11.0-15.0 [facility] Estimated glomerular filtrat ion rate (GFR) non- Americanon 03-06-2024 GFR/1.73 sq M.predicted among non-blacks MDRD (S/P/Bld) [Vol rate/Area] 57 mL/min/{1.73_m2} >=60 [facility] Hematocrit Auto (Bld) [Volum e fraction]on 03-06-2024 Hematocrit (Bld) [Volume fraction] 38.7 % 36.0-48.0 [facility] Hemoglobin [Mass/volume] in Bloodon 03-06-2024 Hemoglobin (Bld) [Mass/Vol] 12.2 g/dL 12.0-16.0 [facility] Laboratory - Chemistry and C hemistry - challengeon 03-06-2024 Albumin [Mass/Vol] 3.0 g/dL 3.4-5.0 [facility] Calcium [Mass/Vol] 8.8 mg/dL 8.5-10.1 [facility] Chloride [Moles/Vol] 104 mmol/L 98-107 [facility] CO2 [Moles/Vol] 32.2 mmol/L 21.0-32.0 [facility] Creatinine [Mass/Vol] 0.97 mg/dL 0.55-1.02 [facility] GFR/1.73 sq M.predicted MDRD (S/P/Bld) [Vol rate/Area] mL/min/{1.73_m2} >=60 [facility] Glucose [Mass/Vol] 67 mg/dL 74-106 [facility] Magnesium [Mass/Vol] 1.9 mg/dL 1.8-2.4 [facility] Potassium [Moles/Vol] 3.4 mmol/L 3.5-5.1 [facility] Sodium [Moles/Vol] 143 mmol/L 136-145 [facility] Urate [Mass/Vol] 5.0 mg/dL 2.6-6.0 [facility] Urea nitrogen [Mass/Vol] 16.0 mg/dL 7.0-18.0 [facility] Urea nitrogen/Creatinine [Mass ratio] 16.5 mg/mg [facility] Leukocytes [#/volume] correc melanie for nucleated erythrocytes in Blood by Automated counon 03-06-2024 WBC corrected for nucl RBC Auto (Bld) [#/Vol] 8.1 10 3/uL 4.0-11.0 [facility] MCH Auto (RBC) [Entitic mass ]on 03-06-2024 MCH (RBC) [Entitic mass] 30.4 pg 26.7-34.0 [facility] MCHC Auto (RBC) [Mass/Vol]on 03-06-2024 MCHC (RBC) [Mass/Vol] 31.5 g/dL 29.9-35.2 [facility] MCV Auto (RBC) [Entitic vol] on 03-06-2024 MCV (RBC) [Entitic vol] 96.5 fL 81.0-99.0 [facility] No Panel Informationon 03-06 Urine Random Creatinine 63.27 mg/dL 20.00-300.00 [facility] Urine Random Total Protein <6.0 mg/dL <=11.9 [facility] 25-Hydroxy Vitamin D Total 37.1 ng/mL [facility] Comment on above: <20 ng/mL Vit D defi cient20-<30 ng/mL Vit D gznkgkvggmza75-006 ng/mL Vit D sufficient>100 ng/mL Potential Toxicity Parathyroid Hormone (Intact) 36 pg/mL 15-65 [facility] Comment on above: Performed at: [address] [id number] Director: Raphael Marrero PhD, Phone: [phone] Phosphorus Level 3.2 mg/dL 2.6-4.7 [facility] Platelet mean volume Auto (B ld) [Entitic vol]on 03-06-2024 Platelet mean volume (Bld) [Entitic vol] 9.1 fL 9.5-13.5 [facility] Platelets Auto (Bld) [#/Vol] on 03-06-2024 Platelets (Bld) [#/Vol] 247 10 3/uL 150-450 [facility] RBC Auto (Bld) [#/Vol]on RBC (Bld) [#/Vol] 4.01 10 6/uL 4.20-5.40 [facility] Serum or plasma anion gap de terminationon 03-06-2024 Anion gap [Moles/Vol] 10.2 mmol/L [facility] SYMPTOMATIC COVID-19 ANTIGEN on 04-04-2023 EUA Statement SEE BELOW Normal [facility] Comment on above: Result Comment: This [...] By: #### C VDAGS #### [facility] [address] [place] [address] Dr. Shayne Roldan SARS-CoV-2 (COVID-19) RNA KAYLEE+probe Ql (Unsp spec) Positive Abnormal NEGATIVE [facility] Comment on above: Performed By: #### C VDAGS #### [facility] [address] [place] [address] Dr. Shayne Roldan XR LSPINE 2_3 VIEWSon [...] Date: 2023-03-24 12:52 Normal [facility] PTH INTACTon 02-27-2023 PTH, Intact 87 pg/mL Critically high 15-65 [facility] Comment on above: Performed By: #### P THINT #### [facility] [address] [place] [address] Dr. Shayne Roldan HEMOGRAM AND PLATELon 2022 Hematocrit (Bld) [Volume fraction] 44.4 % Normal 36.0-48.0 [facility] Comment on above: Performed By: #### H H #### [facility] [address] [place] [address] Dr. Shayne Roldan Hemoglobin (Bld) [Mass/Vol] 14.5 g/dL Normal 12.0-16.0 [facility] Comment on above: Performed By: #### H H #### [facility] [address] [place] [address] Dr. Shayne Roldan MCH (RBC) [Entitic mass] 30.3 pg Normal 26.7-34.0 [facility] Comment on above: Performed By: #### H H #### [facility] [address] [place] [address] Dr. Shayne Roldan MCHC (RBC) [Mass/Vol] 32.7 g/dL Normal 29.9-35.2 [facility] Comment on above: Performed By: #### H H #### [facility] [address] [place] [address] Dr. Shayne Roldan MCV (RBC) [Entitic vol] 92.9 fL Normal 81.0-99.0 [facility] Comment on above: Performed By: #### H H #### [facility] [address] [place] [address] Dr. Shayne Roldan PLT 367 103/ul Normal 150-450 [facility] Comment on above: Performed By: #### H H #### [facility] [address] [place] [address] Dr. Shayne Roldan RBC 4.78 106/ul Normal 4.20-5.40 [facility] Comment on above: Performed By: #### H H #### [facility] [address] [place] [address] Dr. Shayne Roldan WBC 9.9 103/ul Normal 4.0-11.0 [facility] Comment on above: Performed By: #### H H #### [facility] [address] [place] [address] Dr. Shayne Roldan MAGNESIUMon 02-25-2023 Magnesium [Mass/Vol] 1.6 mg/dL Critically low 1.8-2.4 [facility] Comment on above: Performed By: #### M G, RENAL, URIC #### [facility] [address] [place] [address] Dr. Shayne Roldan RENAL FUNCTION PANELon 02-25 Albumin [Mass/Vol] 3.4 g/dL Normal 3.4-5.0 [facility] Comment on above: Performed By: #### M G, RENAL, URIC #### [facility] [address] [place] [address] Dr. Shayne Roldan Calcium [Mass/Vol] 8.7 mg/dL Normal 8.5-10.1 [facility] Comment on above: Performed By: #### M G, RENAL, URIC #### [facility] [address] [place] [address] Dr. Shayne Roldan Chloride [Moles/Vol] 104 mmol/L Normal 98-107 [facility] Comment on above: Performed By: #### M G, RENAL, URIC #### [facility] [address] [place] [address] Dr. Shayne Roldan CO2 [Moles/Vol] 25.9 mmol/L Normal 21.0-32.0 [facility] Comment on above: Performed By: #### M G, RENAL, URIC #### [facility] [address] [place] [address] Dr. Shayne Roldan Creatinine [Mass/Vol] 1.19 mg/dL Critically high 0.55-1.02 [facility] Comment on above: Performed By: #### M G, RENAL, URIC #### [facility] [address] [address] [address] Shayne Roldan EGFR-AF [place] 55 mL/min/1.73m2 Critically low >=60 [facility] Comment on above: Performed By: #### M G, RENAL, URIC #### [facility] [address] [place] [address] Dr. Shayne Roldan EGFR-NON AF [place] 45 mL/min/1.73m2 Critically low >=60 [facility] Comment on above: Performed By: #### M G, RENAL, URIC #### [facility] [address] [place] [address] Dr. Shayne Roldan Glucose [Mass/Vol] 193 mg/dL Critically high 74-106 [facility] Comment on above: Performed By: #### M G, RENAL, URIC #### [facility] [address] [place] [address] Dr. Shayne Roldan Phosphate [Mass/Vol] 3.2 mg/dL Normal 2.6-4.7 [facility] Comment on above: Performed By: #### M G, RENAL, URIC #### [facility] [address] [place] [address] Dr. Shayne Roldan Potassium [Moles/Vol] 3.9 mmol/L Normal 3.5-5.1 [facility] Comment on above: Performed By: #### M G, RENAL, URIC #### [facility] [address] [place] [address] Dr. Shayne Roldan Sodium [Moles/Vol] 140 mmol/L Normal 136-145 [facility] Comment on above: Performed By: #### M G, RENAL, URIC #### [facility] [address] [place] [address] Dr. Shayne Roldan Urea nitrogen [Mass/Vol] 17.0 mg/dL Normal 7.0-18.0 [facility] Comment on above: Performed By: #### M G, RENAL, URIC #### [facility] [address] [place] [address] Dr. Shayne Roldan UA RANDOM W/MICROSCOPICon BACTERIA TRACE Abnormal NONE SEEN [facility] Comment on above: Performed By: #### M G, RENAL, URIC #### [facility] [address] [address] [address] Shayne Roldan Bilirubin Ql (U) Negative Normal NEGATIVE [facility] Comment on above: Performed By: #### M G, RENAL, URIC #### [facility] [address] [address] [address] Shayne Roldan CAST NONE SEEN Normal NONE SEEN [facility] Comment on above: Performed By: #### M G, RENAL, URIC #### [facility] [address] [address] [address] Shayne Roldan Clarity (U) CLEAR Normal CLEAR [facility] Comment on above: Performed By: #### M G, RENAL, URIC #### [facility] [address] [address] [address] Shayne Roldan Color (U) LT. YELLOW Normal YELLOW [facility] Comment on above: Performed By: #### M G, RENAL, URIC #### [facility] [address] [address] [address] Shayne Roldan Crystals LM Nom (Urine sed) NONE SEEN Normal NONE SEEN [facility] Comment on above: Performed By: #### M G, RENAL, URIC #### [facility] [address] [place] [address] Dr. Shayne Roldan Epithelial cells LM Ql (Urine sed) RARE Normal NONE SEEN /RARE [facility] Comment on above: Performed By: #### M G, RENAL, URIC #### [facility] [address] [address] [address] Shayne Roldan Glucose Ql (U) Negative Normal NEGATIVE [facility] Comment on above: Performed By: #### M G, RENAL, URIC #### [facility] [address] [address] [address] Shayne Roldan Hemoglobin Ql (U) Negative Normal NEGATIVE [facility] Comment on above: Performed By: #### M G, RENAL, URIC #### [facility] [address] [address] [address] Shayne Roldan Ketones Ql (U) Negative Normal NEGATIVE [facility] Comment on above: Performed By: #### M G, RENAL, URIC #### [facility] [address] [address] [address] Shayne Roldan LEUKOCYTES Negative Normal NEGATIVE [facility] Comment on above: Performed By: #### M G, RENAL, URIC #### [facility] [address] [address] [address] Shayne Roldan MUCOUS NONE SEEN Normal NONE SEEN [facility] Comment on above: Performed By: #### M G, RENAL, URIC #### [facility] [address] [address] [address] Shayne Roldan Nitrite Ql (U) Negative Normal NEGATIVE [facility] Comment on above: Performed By: #### M G, RENAL, URIC #### [facility] [address] [place] [address] Dr. Shayne Roldan pH (U) 5.0 [pH] Normal 5-9 [facility] Comment on above: Performed By: #### M G, RENAL, URIC #### [facility] [address] [address] [address] Shayne Roldan RBC 0-2 Normal 0-2 [facility] Comment on above: Performed By: #### M G, RENAL, URIC #### [facility] [address] [place] [address] Dr. Shayne Roldan SPEC GRAVITY 1.025 Normal 1.005-<=1.02 5 [facility] Comment on above: Performed By: #### M G, RENAL, URIC #### [facility] [address] [address] [address] Shayne Roldan UA PROTEIN Negative Normal NEGATIVE/ TRACE [facility] Comment on above: Performed By: #### M G, RENAL, URIC #### [facility] [address] [address] [address] Shayne Roldan Urobilinogen Qn (U) 0.2 {Rogelio'U}/dL Normal 0.2 - 1. 0 [facility] Comment on above: Performed By: #### M G, RENAL, URIC #### [facility] [address] [address] [address] Shayne Roldan WBC 0-2 Abnormal NONE SEEN [facility] Comment on above: Performed By: #### M G, RENAL, URIC #### [facility] [address] [address] [address] Shayne Roldan URIC ACID SERUMon 02-25-2023 Urate [Mass/Vol] 6.1 mg/dL Critically high 2.6-6.0 [facility] Comment on above: Performed By: #### M G, RENAL, URIC #### [facility] [address] [address] [address] Shayne Roldan URINE T PROTEIN CREAT RATIOo n 02-25-2023 Protein (U) [Mass/Vol] 13.0 mg/dL Critically high <=12.0 [facility] Comment on above: Performed By: #### M G, RENAL, URIC #### [facility] [address] [place] [address] Dr. Shayne Roldan UR PROT CREAT RAT 0.16 Normal [facility] Comment on above: Performed By: #### M G, RENAL, URIC #### [facility] [address] [address] [address] Shayne Roldan URINE CREAT 83.60 mg/dL Normal 20.00-300.00 [facility] Comment on above: Performed By: #### M G, RENAL, URIC #### [facility] [address] [place] [address] Dr. Shayne Roldan VITAMIN D 25 OHon 02-25-2023 VIT D 25-OH 41.6 ng/mL Normal [facility] Comment on above: Performed By: #### M G, RENAL, URIC #### [facility] [address] [place] [address] Dr. Shayne Roldan VIT D RANGES SEE BELOW Normal [facility] Comment on above: Result Comment: <20 ng/mL Vit D deficient 20 - <30 ng/mL Vit D insufficient 30 - 100 ng/mL Vit D sufficient >100 ng/mL Potential Toxicity Performed By: #### M G, RENAL, URIC #### [facility] [id number] Shayne Roldan XR CHEST 2 Von [...] by: BRITTANY GALDAMEZ Date: 2023-02-22 16:15 Normal [facility] MAMM SCREEN 3D PRATEEK CADon 12-15-2022 MAMM SCREEN 3D PRATEEK CAD Patient: DIANA CHAMPION Exam Date: 12/15/2022 : 1955 Gender:F Ordering : DR JACK HALL . Admission #: [id number] Family : Order #: [id number] CLICK HERE TO VIEW EXAM RADIOLOGY REPORT PROCEDURE: MAMMOGRAM SCREENING 3D BILATERAL CAD COMPARISON: MAMM SCREEN 3D PRATEEK CAD, 11/26/2021. INDICATIONS: Calculator Name NCI Breast Cancer Risk Assessment Tool 5 Year Breast Cancer Risk 1.20% Lifetime Breast Cancer Risk 4.40% Personal Breast Cancer No Personal Ovarian Cancer No Treatments Excision, radiation, chemotherapy Family Cancers None LOCATION: [facility] BREAST COMPOSITION: Almost entirely fatty. FINDINGS: [...] Walters MD on 12/15/2022 at 10:51 Normal [facility] XR DEXA BONE DENSITYon 12-15 [...] by: STEPH GRANADOS Date: 2022-12-15 09:50 Normal [facility] PAP ACOG PANEL 2: 30 to 65on 11-16-2022 . . Normal [facility] Comment on above: Performed By: #### [id number] #### [facility] [address] [address] [address] Shayne Roldan Age Gdln ACOG Testing Comment Normal [facility] Comment on above: Result Comment: <21 or >65 or no age provided Performed By: #### [id number] #### [facility] [address] [address] [address] Shayne Roldan DIAGNOSIS: Comment [facility] Comment on above: Result Comment: NEGA TIVE FOR INTRAEPITHELIAL LESION OR MALIGNANCY. Performed By: #### [id number] #### [facility] [address] [address] [address] Shayne Roldan Methodology: Comment [facility] Comment on above: Result Comment: This liquid based ThinPrep(R) pap test was screened with the use of an image guided system. Performed By: #### [id number] #### [facility] [address] [address] [address] Shayne Roldan Note: Comment [facility] Comment on above: Result Comment: The Pap smear is a screening test designed to aid in the detection of premalignant and malignant conditions of the uterine cervix. It is not a diagnostic procedure and should not be used as the sole means of detecting cervical cancer. Both false-positive and false-negative reports do occur. . Performed By: #### [id number] #### [facility] [address] [address] [address] Shayne Roldan Performed by: Comment Normal [facility] Comment on above: Result Comment: Onur Aguilar Culinary Assistant (ASCP) Performed By: #### [id number] #### [facility] [address] [address] [address] Shayne Roldan Specimen adequacy: Comment Normal [facility] Comment on above: Result Comment: Sati sfactory for evaluation. Endocervical and/or squamous metaplastic cells (endocervical component) are present. Performed By: #### [id number] #### [facility] [address] [place] [address] Dr. Shayne Roldan RENAL FUNCTION PANELon 08-19 Albumin [Mass/Vol] 3.4 g/dL Normal 3.4-5.0 [facility] Comment on above: Performed By: #### M G, RENAL, URIC #### [facility] [address] [address] [address] Shayne Roldan Calcium [Mass/Vol] 8.4 mg/dL Critically low 8.5-10.1 [facility] Comment on above: Performed By: #### M G, RENAL, URIC #### [facility] [address] [address] [address] Shayne Roldan Chloride [Moles/Vol] 103 mmol/L Normal 98-107 [facility] Comment on above: Performed By: #### M G, RENAL, URIC #### [facility] [address] [address] [address] Shayne Roldan CO2 [Moles/Vol] 27.8 mmol/L Normal 21.0-32.0 [facility] Comment on above: Performed By: #### M G, RENAL, URIC #### [facility] [address] [address] [address] Shayne Roldan Creatinine [Mass/Vol] 1.02 mg/dL Normal 0.55-1.02 [facility] Comment on above: Performed By: #### M G, RENAL, URIC #### [facility] [address] [address] [address] Shayne Roldan EGFR-AF [place] >60 Normal >=60 [facility] Comment on above: Performed By: #### M G, RENAL, URIC #### [facility] [address] [address] [address] Shayne Roldan EGFR-NON AF [place] 54 mL/min/1.73m2 Critically low >=60 [facility] Comment on above: Performed By: #### M G, RENAL, URIC #### [facility] [address] [address] [address] Shayne Roldan Glucose [Mass/Vol] 110 mg/dL Critically high 74-106 [facility] Comment on above: Performed By: #### M G, RENAL, URIC #### [facility] [address] [place] [address] Dr. Shayne Roldan Phosphate [Mass/Vol] 2.3 mg/dL Critically low 2.6-4.7 [facility] Comment on above: Performed By: #### M G, RENAL, URIC #### [facility] [address] [address] [address] Shayne Roldan Potassium [Moles/Vol] 3.2 mmol/L Critically low 3.5-5.1 [facility] Comment on above: Performed By: #### M G, RENAL, URIC #### [facility] [address] [address] [address] Shayne Roldan Sodium [Moles/Vol] 138 mmol/L Normal 136-145 [facility] Comment on above: Performed By: #### M G, RENAL, URIC #### [facility] [address] [address] [address] Shayne Roldan Urea nitrogen [Mass/Vol] 14.0 mg/dL Normal 7.0-18.0 [facility] Comment on above: Performed By: #### M G, RENAL, URIC #### [facility] [address] [address] [address] Shayne Roldan PTH INTACTon 08-06-2022 PTH, Intact 40 pg/mL Normal 15-65 [facility] Comment on above: Performed By: #### M G, RENAL, URIC #### [facility] [address] [place] [address] Dr. Shayne Roldan HEMOGRAM AND PLATELon 2021 Hematocrit (Bld) [Volume fraction] 39.8 % Normal 36.0-48.0 [facility] Comment on above: Performed By: #### M G, RENAL, URIC #### [facility] [address] [place] [address] Dr. Shayne Roldan Hemoglobin (Bld) [Mass/Vol] 13.4 g/dL Normal 12.0-16.0 [facility] Comment on above: Performed By: #### M G, RENAL, URIC #### [facility] [address] [place] [address] Dr. Shayne Roldan MCH (RBC) [Entitic mass] 30.5 pg Normal 26.7-34.0 [facility] Comment on above: Performed By: #### M G, RENAL, URIC #### [facility] [address] [place] [address] Dr. Shayne Roldan MCHC (RBC) [Mass/Vol] 33.7 g/dL Normal 29.9-35.2 [facility] Comment on above: Performed By: #### M G, RENAL, URIC #### [facility] [address] [place] [address] Dr. Shayne Roldan MCV (RBC) [Entitic vol] 90.5 fL Normal 81.0-99.0 [facility] Comment on above: Performed By: #### M G, RENAL, URIC #### [facility] [address] [place] [address] Dr. Shayne Roldan PLT 299 103/ul Normal 150-450 [facility] Comment on above: Performed By: #### M G, RENAL, URIC #### [facility] [address] [place] [address] Dr. Shayne Roldan RBC 4.40 106/ul Normal 4.20-5.40 [facility] Comment on above: Performed By: #### M G, RENAL, URIC #### [facility] [address] [address] [address] Shayne Roldan WBC 8.8 103/ul Normal 4.0-11.0 [facility] Comment on above: Performed By: #### M G, RENAL, URIC #### [facility] [address] [address] [address] Shayne Roldan MAGNESIUMon 08-05-2022 Magnesium [Mass/Vol] 1.5 mg/dL Critically low 1.8-2.4 [facility] Comment on above: Performed By: #### M G, RENAL, URIC #### [facility] [address] [address] [address] Shayne Roldan RENAL FUNCTION PANELon 08-05 Albumin [Mass/Vol] 3.5 g/dL Normal 3.4-5.0 [facility] Comment on above: Performed By: #### M G, RENAL, URIC #### [facility] [address] [address] [address] Shayne Roldan Calcium [Mass/Vol] 8.4 mg/dL Critically low 8.5-10.1 [facility] Comment on above: Performed By: #### M G, RENAL, URIC #### [facility] [address] [address] [address] Shayne Roldan Chloride [Moles/Vol] 101 mmol/L Normal 98-107 [facility] Comment on above: Performed By: #### M G, RENAL, URIC #### [facility] [address] [address] [address] Shayne Roldan CO2 [Moles/Vol] 29.5 mmol/L Normal 21.0-32.0 [facility] Comment on above: Performed By: #### M G, RENAL, URIC #### [facility] [address] [address] [address] Shayne Roldan Creatinine [Mass/Vol] 1.04 mg/dL Critically high 0.55-1.02 [facility] Comment on above: Performed By: #### M G, RENAL, URIC #### [facility] [address] [address] [address] Shayne Roldan EGFR-AF [place] >60 Normal >=60 [facility] Comment on above: Performed By: #### M G, RENAL, URIC #### [facility] [address] [address] [address] Shayne Roldan EGFR-NON AF [place] 53 mL/min/1.73m2 Critically low >=60 [facility] Comment on above: Performed By: #### M G, RENAL, URIC #### [facility] [address] [address] [address] Shayne Rlodan Glucose [Mass/Vol] 92 mg/dL Normal 74-106 [facility] Comment on above: Performed By: #### M G, RENAL, URIC #### [facility] [address] [place] [address] Dr. Shayne Roldan Phosphate [Mass/Vol] 2.4 mg/dL Critically low 2.6-4.7 [facility] Comment on above: Performed By: #### M G, RENAL, URIC #### [facility] [address] [address] [address] Shayne Roldan Potassium [Moles/Vol] 2.8 mmol/L Critically low 3.5-5.1 [facility] Comment on above: Performed By: #### M G, RENAL, URIC #### [facility] [address] [address] [address] Shayne Roldan Sodium [Moles/Vol] 137 mmol/L Normal 136-145 [facility] Comment on above: Performed By: #### M G, RENAL, URIC #### [facility] [address] [place] [address] Dr. Shayne Roldan Urea nitrogen [Mass/Vol] 10.0 mg/dL Normal 7.0-18.0 [facility] Comment on above: Performed By: #### M G, RENAL, URIC #### [facility] [address] [address] [address] Shayne Roldan UA RANDOM W/MICROSCOPICon BACTERIA SMALL Abnormal NONE SEEN [facility] Comment on above: Performed By: #### U AMIC #### [facility] [address] [address] [address] Shayne Roldan Bilirubin Ql (U) Negative Normal NEGATIVE [facility] Comment on above: Performed By: #### U AMIC #### [facility] [address] [address] [address] Shayne Roldan CAST NONE SEEN Normal NONE SEEN [facility] Comment on above: Performed By: #### U AMIC #### [facility] [address] [address] [address] Shayne Roldan Clarity (U) CLEAR Normal CLEAR [facility] Comment on above: Performed By: #### U AMIC #### [facility] [address] [address] [address] Shayne Roldan Color (U) LT. YELLOW Normal YELLOW [facility] Comment on above: Performed By: #### U AMIC #### [facility] [address] [address] [address] Shayne Roldan Crystals LM Nom (Urine sed) NONE SEEN Normal NONE SEEN [facility] Comment on above: Performed By: #### U AMIC #### [facility] [address] [address] [address] Shayne Roldan Epithelial cells LM Ql (Urine sed) FEW Abnormal NONE SEEN /RARE [facility] Comment on above: Performed By: #### U AMIC #### [facility] [address] [address] [address] Shayne Roldan Glucose Ql (U) Negative Normal NEGATIVE [facility] Comment on above: Performed By: #### U AMIC #### [facility] [address] [address] [address] Shayne Roldan Hemoglobin Ql (U) Negative Normal NEGATIVE [facility] Comment on above: Performed By: #### U AMIC #### [facility] [address] [address] [address] Shayne Roldan Ketones Ql (U) Negative Normal NEGATIVE [facility] Comment on above: Performed By: #### U AMIC #### [facility] [address] [address] [address] Shayne Roldan LEUKOCYTES TRACE Abnormal NEGATIVE [facility] Comment on above: Performed By: #### U AMIC #### [facility] [address] [place] [address] Dr. Shayne Roldan MUCOUS NONE SEEN Normal NONE SEEN [facility] Comment on above: Performed By: #### U AMIC #### [facility] [address] [address] [address] Shayne Roldan Nitrite Ql (U) Negative Normal NEGATIVE [facility] Comment on above: Performed By: #### U AMIC #### [facility] [address] [place] [address] Dr. Shayne Roldan pH (U) 6.0 [pH] Normal 5-9 [facility] Comment on above: Performed By: #### U AMIC #### [facility] [address] [place] [address] Dr. Shayne Roldan RBC NONE SEEN Abnormal 0-2 [facility] Comment on above: Performed By: #### U AMIC #### [facility] [address] [place] [address] Dr. Shayne Roldan SPEC GRAVITY <=1.005 Abnormal 1.005-<=1.02 5 [facility] [facility] Comment on above: Performed By: #### U AMIC #### [facility] [address] [place] [address] Dr. Shayne Roldan UA PROTEIN Negative Normal NEGATIVE/ TRACE [facility] Comment on above: Performed By: #### U AMIC #### [facility] [address] [place] [address] Dr. Shayne Rodlan Urobilinogen Qn (U) 0.2 {Rogelio'U}/dL Normal 0.2 - 1. 0 [facility] Comment on above: Performed By: #### U AMIC #### [facility] [address] [place] [address] Dr. Shayne Roldan WBC 5-10 Abnormal NONE SEEN [facility] Comment on above: Performed By: #### U AMIC #### [facility] [address] [place] [address] Dr. Shayne Roldan URIC ACID SERUMon 08-05-2022 Urate [Mass/Vol] 6.5 mg/dL Critically high 2.6-6.0 [facility] Comment on above: Performed By: #### M G, RENAL, URIC #### [facility] [address] [address] [address] Shayne Roldan URINE T PROTEIN CREAT RATIOo n 08-05-2022 Protein (U) [Mass/Vol] 4.8 mg/dL Normal <=12.0 [facility] Comment on above: Performed By: #### U RTPCR #### [facility] [address] [place] [address] Dr. Shayne Roldan UR PROT CREAT RAT 0.09 Normal [facility] Comment on above: Performed By: #### U RTPCR #### [facility] [address] [place] [address] Dr. Shayne Roldan URINE CREAT 52.65 mg/dL Normal 20.00-300.00 [facility] Comment on above: Performed By: #### U RTPCR #### [facility] [address] [place] [address] Dr. Shayne Roldan VITAMIN D 25 OHon 08-05-2022 VIT D 25-OH 38.9 ng/mL Normal [facility] Comment on above: Performed By: #### M G, RENAL, URIC #### [facility] [address] [place] [address] Dr. Shayne Roldan VIT D RANGES SEE BELOW Normal [facility] Comment on above: Result Comment: <20 ng/mL Vit D deficient 20 - <30 ng/mL Vit D insufficient 30 - 100 ng/mL Vit D sufficient >100 ng/mL Potential Toxicity Performed By: #### M G, RENAL, URIC #### [facility] [address] [place] [address] Dr. Shayne Roldan IMMUNOGLOBULINS IGA/IGM/IGG/ IGE QUANTITAon 07-12-2022 Immunoglobulin A, Qn, Serum 295 mg/dL Normal 87-352 [facility] Comment on above: Result Comment: Perf ormed at: CB Performed By: #### M G, RENAL, URIC #### [facility] [address] [place] [address] Dr. Shayne Roldan Immunoglobulin E, Total 32 IU/mL Normal 6-495 [facility] Comment on above: Result Comment: Perf ormed at: BN Performed By: #### M G, RENAL, URIC #### [facility] [address] [place] [address] Dr. Shayne Roldan Immunoglobulin G, Qn, Serum 729 mg/dL Normal 586-1602 [facility] Comment on above: Result Comment: Perf ormed at: CB Performed By: #### M G, RENAL, URIC #### [facility] [address] [place] [address] Dr. Shayne Roldan Immunoglobulin M, Qn, Serum 75 mg/dL Normal 26-217 [facility] Comment on above: Result Comment: Perf ormed at: CB Performed By: #### M G, RENAL, URIC #### [facility] [address] [place] [address] Dr. Shayne Roldan CBC AUTO DIFFon 07-05-2022 BASO # 0.1 103/ul Normal 0.0-0.1 [facility] Comment on above: Performed By: #### M G, RENAL, URIC #### [facility] [address] [place] [address] Dr. Shayne Roldan Basophils/100 WBC (Bld) 0.7 % Normal 0.2-2.0 [facility] Comment on above: Performed By: #### M G, RENAL, URIC #### [facility] [address] [place] [address] Dr. Shayne Roldan EO # 0.4 103/ul Normal 0.0-0.7 [facility] Comment on above: Performed By: #### M G, RENAL, URIC #### [facility] [address] [place] [address] Dr. Shayne Roldan Eosinophils/100 WBC (Bld) 4.4 % Normal 0.9-7.0 [facility] Comment on above: Performed By: #### M G, RENAL, URIC #### [facility] [address] [place] [address] Dr. Shayne Roldan Erythrocyte distribution width (RBC) [Ratio] 12.6 % Normal 11.0-15.0 [facility] Comment on above: Performed By: #### M G, RENAL, URIC #### [facility] [address] [place] [address] Dr. Shayne Roldan Hematocrit (Bld) [Volume fraction] 40.2 % Normal 36.0-48.0 [facility] Comment on above: Performed By: #### M G, RENAL, URIC #### [facility] [address] [place] [address] Dr. Shayne Roldan Hemoglobin (Bld) [Mass/Vol] 13.6 g/dL Normal 12.0-16.0 [facility] Comment on above: Performed By: #### M G, RENAL, URIC #### [facility] [address] [place] [address] Dr. Shayne Roldan IG # 0.07 10e3/ul Critically high 0.00-0.03 [facility] Comment on above: Performed By: #### M G, RENAL, URIC #### [facility] [address] [place] [address] Dr. Shayne Roldan IG % 0.8 % Critically high 0.0-0.5 [facility] Comment on above: Performed By: #### M G, RENAL, URIC #### [facility] [address] [place] [address] Dr. Shayne Roldan LYMPH # 2.3 103/ul Normal 1.2-3.8 [facility] Comment on above: Performed By: #### M G, RENAL, URIC #### [facility] [address] [place] [address] Dr. Shayne Roldan Lymphocytes/100 WBC (Bld) 24.7 % Normal 20.5-60.0 [facility] Comment on above: Performed By: #### M G, RENAL, URIC #### [facility] [address] [place] [address] Dr. Shayne Roldan MANUAL DIFF REQ NO Normal [facility] Comment on above: Performed By: #### M G, RENAL, URIC #### [facility] [address] [address] [address] Shayne Roldan MCH (RBC) [Entitic mass] 30.7 pg Normal 26.7-34.0 [facility] Comment on above: Performed By: #### M G, RENAL, URIC #### [facility] [address] [place] [address] Dr. Shayne Roldan MCHC (RBC) [Mass/Vol] 33.8 g/dL Normal 29.9-35.2 [facility] Comment on above: Performed By: #### M G, RENAL, URIC #### [facility] [address] [place] [address] Dr. Shayne Roldan MCV (RBC) [Entitic vol] 90.7 fL Normal 81.0-99.0 [facility] Comment on above: Performed By: #### M G, RENAL, URIC #### [facility] [address] [place] [address] Dr. Shayne Roldan MONO # 0.7 103/ul Normal 0.3-0.8 [facility] Comment on above: Performed By: #### M G, RENAL, URIC #### [facility] [address] [place] [address] Dr. Shayne Roldan Monocytes/100 WBC (Bld) 7.7 % Normal 1.7-12.0 [facility] Comment on above: Performed By: #### M G, RENAL, URIC #### [facility] [address] [place] [address] Dr. Shayne Roldan NEUT # 5.7 103/ul Normal 1.4-6.5 [facility] Comment on above: Performed By: #### M G, RENAL, URIC #### [facility] [address] [place] [address] Dr. Shayne Roldan Neutrophils/100 WBC (Bld) 61.7 % Normal 43.0-75.0 [facility] Comment on above: Performed By: #### M G, RENAL, URIC #### [facility] [address] [place] [address] Dr. Shayne Roldan Platelet mean volume (Bld) [Entitic vol] 8.8 fL Critically low 9.5-13.5 [facility] Comment on above: Performed By: #### M G, RENAL, URIC #### [facility] [address] [address] [address] Shayne Roldan PLT 279 103/ul Normal 150-450 [facility] Comment on above: Performed By: #### M G, RENAL, URIC #### [facility] [address] [address] [address] Shayne Roldan RBC 4.43 106/ul Normal 4.20-5.40 [facility] Comment on above: Performed By: #### M G, RENAL, URIC #### [facility] [address] [address] [address] Shayne Roldan WBC 9.1 103/ul Normal 4.0-11.0 [facility] Comment on above: Performed By: #### M G, RENAL, URIC #### [facility] [address] [address] [address] Shayne Roldan Covid-19 PCR ([facility]on SARS-CoV-2 (COVID-19) RNA KAYLEE+probe Ql (Unsp spec) Not detected Normal NOT DETECTED [facility] Comment on above: Result Comment: This test is not yet approved or cleared by the [place] FDA. When there are no FDA-approved or cleared tests available, and other criteria are met, FDA can make tests available under an emergency access mechanism called an Emergency Use Authorization (EUA). The EUA for this test is supported by the Chief Design Branch of Health and Human Service's (HHS's) declaration [...] M G, RENAL, URIC #### [facility] [address] [place], [place] [address] Dr. Shayne Roldan XR CHEST 2 Von [...] Date: 2022-06-08 19:58 Normal [facility] Covid-19 PCR (CVDTB)on SARS-CoV-2 (COVID-19) RNA KAYLEE+probe Ql (Unsp spec) Not detected Normal NOT DETECTED [facility] Comment on above: Result Comment: This test is not yet approved or cleared by the [place] FDA. When there are no FDA-approved or cleared tests available, and other criteria are met, FDA can make tests available under an emergency access mechanism called an Emergency Use Authorization (EUA). The EUA for this test is supported by the Chief Design Branch of Health and Human Service's (HHS's) declaration [...] SARS-CoV-2. Performed By: #### C VDTBH #### [facility] [address] [place], [place] [address] Dr. Shayne Rodlan DEXA AXIALon 03-01-2022 DEXA AXIAL [facility] Department of Radiology [address] [place] [phone] == Patient Name: DIANA CHAMPION : 1955 Sex: F Age: Race: White Pt. Location: Patient Status: D Ordered Date: 02/24/2022 1:25:00 PM Completed Date: 03/01/2022 09:46 AM Requesting Provider: CINDA ANTONIO Attending Provider: Report Copy To: Signs & Symptoms: Z78.0 Asymptomatic menopausal state I10 History: Breeding Comments: Exam: DEXA AXIAL == DEXA AXIAL [...] characteristics. Electronically signed: Luzma Marks. Transcribed by: [email or web address], User Resident: Electronically Signed by: LUZMA MARKS @ 03/02/2022 01:07 PM Normal [facility] SCOLIOSIS 2 [facility] 02-24-2022 SCOLIOSIS 2 [facility] Department of Radiology [address] [place] [phone] == Patient Name: DIANA CHAMPION : 1955 Sex: F Age: Race: White Pt. Location: Patient Status: D Ordered Date: 02/24/2022 1:25:00 PM Completed Date: 02/24/2022 01:44 PM Requesting Provider: CINDA ANTONIO Attending Provider: Report Copy To: Signs & Symptoms: M43.10 Spondylolisthesis, site unspecified I10 History: Comments: Views (X-RAY, SCOLIOSIS): PA, Lateral evaluate Exam: SCOLIOSIS 2 [facility] == Scoliosis. Worsening pain. Frontal and lateral thoracolumbar spine IMPRESSION: 1. Diffuse disc disease and facet arthritis. Right convex mid lumbar curvature measuring 16 degrees. Interbody fusion hardware lower lumbar spine. Electronically signed: Hugo Lynn. Transcribed by: [email or web address], User Resident: Electronically Signed by: HUGO LYNN @ 02/26/2022 11:07 AM Normal [facility] Comment on above: Order Comment: Views (X-RAY, SCOLIOSIS): PA, Lateral evaluate CT LUMBAR SPINE W CONTRASTon 01-24-2022 CT LUMBAR SPINE W CONTRAST [facility] Department of Radiology [address] [place] [phone] == Patient Name: DIANA CHAMPION : [...] L1-2. Electronically signed: Gaurang Hess. Transcribed by: [email or web address], User Resident: Electronically Signed by: GAURANG HESS @ 01/26/2022 08:58 AM Normal [facility] Comment on above: Order Comment: , CT MYELOGRAM>PAPER WORK IN CHART LUMBAR MYELOGRAMon LUMBAR MYELOGRAM [facility] Department of Radiology [address] [place] [phone] == Patient Name: DIANA CHAMPION : 1955 Sex: F Age: Race: White Pt. Location: Patient Status: O Ordered Date: 01/09/2022 9:00:00 AM Completed Date: 01/24/2022 02:37 PM Requesting Provider: JOO LINN Attending Provider: JOO LINN Report Copy To: UNKNOWN, PHYSICIAN Signs & Symptoms: M54.16 Radiculopathy, lumbar region I10 History: Jessica Is patient on thinners? 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 Consent was obtained. Timeout: [place] protocol timeout verification performed. PROCEDURE: Estimated blood [...] report. Electronically signed: Greg Mcmahan. Transcribed by: [email or web address], User Resident: DEBBIE JI Electronically Signed by: GREG MCMAHAN @ 01/24/2022 04:07 PM I personally read this/these film(s) with this resident Normal [facility] Comment on above: Order Comment: , CT MYELOGRAM> PAPER WORK SCANNED IN CHART , CT MYELOGRAM> PAPER WORK SCANNED IN CHART , , , Ordering Provider - JOO LINN MD , HIP LEFT 1 OR 2 VWS WITH PEL VISon 01-06-2022 HIP LEFT 1 OR 2 VWS WITH PELVIS [facility] Department of Radiology [address] [place] [phone] == Patient Name: DIANA CHAMPION : [...] hardware. Electronically signed: Joe Matthew. Transcribed by: [email or web address], User Resident: Electronically Signed by: JOE MATTHEW @ 01/09/2022 04:45 PM Normal [facility] Comment on above: Order Comment: Evalu ate Vital Signs Date Time Vital Sign Value Performing Clinician Facility 05-19-2025 08:43-0400 Body mass index (BMI) [Ratio] 40.58 kg/m2 Kaylene Owenz OCULAR CARE AIDE Work Phone: [facility] 05-19-2025 08:43-0400 Body temperature 98.49 [degF] Kaylene Aichholz OCULAR CARE AIDE Work Phone: [facility] 05-19-2025 08:43-0400 Body weight 107.23 kg Kaylene Aichholz OCULAR CARE AIDE Work Phone: [facility] 05-19-2025 08:43-0400 Diastolic blood pressure 76 mm[Hg] Kaylene Aichholz OCULAR CARE AIDE Work Phone: [facility] 05-19-2025 08:43-0400 Heart rate 74 /min Kaylene Aichholz OCULAR CARE AIDE Work Phone: [facility] 05-19-2025 08:43-0400 Respiratory rate 22 /min Kaylene Aichholz OCULAR CARE AIDE Work Phone: [facility] 05-19-2025 08:43-0400 SaO2% (BldA) [Mass fraction] 94 % Kaylene Aichholz [employer]ULAR CARE AIDE Work Phone: [facility] 05-19-2025 08:43-0400 Systolic blood pressure 118 mm[Hg] Kaylene Aichholz OCULAR CARE AIDE Work Phone: [facility] 04-09-2025 11:03-0400 Body mass index (BMI) [Ratio] 41.2 kg/m2 Kaylene Aichholz OCULAR CARE AIDE Work Phone: [facility] 04-09-2025 11:03-0400 Body temperature 98.2 [degF] Kaylene Aichholz OCULAR CARE AIDE Work Phone: [facility] 04-09-2025 11:03-0400 Body weight 108.86 kg Kaylene Aichholz OCULAR CARE AIDE Work Phone: [facility] 04-09-2025 11:03-0400 Diastolic blood pressure 70 mm[Hg] Kaylene Aichholz OCULAR CARE AIDE Work Phone: [facility] 04-09-2025 11:03-0400 Heart rate 73 /min Kaylene Aichholz OCULAR CARE AIDE Work Phone: [facility] 04-09-2025 11:03-0400 Respiratory rate 22 /min Kaylene Aichholz OCULAR CARE AIDE Work Phone: [facility] 04-09-2025 11:03-0400 SaO2% (BldA) [Mass fraction] 93 % Kaylene Aichholz OCULAR CARE AIDE Work Phone: [facility] 04-09-2025 11:03-0400 Systolic blood pressure 122 mm[Hg] Kaylene Aichholz OCULAR CARE AIDE Work Phone: [facility] 03-24-2025 09:57-0400 Body temperature 98.06 [degF] MAG JOSE ALEJANDRO [facility] 03-24-2025 09:57-0400 Diastolic blood pressure 76 mm[Hg] MAG JOSE ALEJANDRO [facility] 03-24-2025 09:57-0400 Respiratory rate 16 /min MAG JOSE ALEJANDRO [facility] 03-24-2025 09:57-0400 Systolic blood pressure 128 mm[Hg] MAG JOSE ALEJANDRO [facility] 02-17-2025 08:31-0400 Body temperature 98.8 [degF] Kaylene Aichholz OCULAR CARE AIDE Work Phone: [facility] 02-17-2025 08:31-0400 Diastolic blood pressure 72 mm[Hg] Kaylene Brianhholz OCULAR CARE AIDE Work Phone: [facility] 02-17-2025 08:31-0400 Heart rate 85 /min Kaylene Aichholz OCULAR CARE AIDE Work Phone: [facility] 02-17-2025 08:31-0400 Respiratory rate 24 /min Kaylene Aichholz OCULAR CARE AIDE Work Phone: [facility] 02-17-2025 08:31-0400 SaO2% (BldA) [Mass fraction] 90 % Kaylene Brianhholz OCULAR CARE AIDE Work Phone: [facility] 02-17-2025 08:31-0400 Systolic blood pressure 118 mm[Hg] Kaylene Aichholz OCULAR CARE AIDE Work Phone: [facility] 01-16-2025 09:50-0400 Body temperature 99 [degF] Kaylene Brianhholz OCULAR CARE AIDE Work Phone: [facility] 01-16-2025 09:50-0400 Diastolic blood pressure 80 mm[Hg] Kaylene Aichholz OCULAR CARE AIDE Work Phone: [facility] 01-16-2025 09:50-0400 Heart rate 68 /min Kaylene Aichholz OCULAR CARE AIDE Work Phone: [facility] 01-16-2025 09:50-0400 Respiratory rate 26 /min Kaylene Aichholz OCULAR CARE AIDE Work Phone: [facility] 01-16-2025 09:50-0400 SaO2% (BldA) [Mass fraction] 93 % Kaylene Aichholz OCULAR CARE AIDE Work Phone: [facility] 01-16-2025 09:50-0400 Systolic blood pressure 108 mm[Hg] Kaylene Aichholz OCULAR CARE AIDE Work Phone: [facility] 01-02-2025 14:54-0500 Body mass index (BMI) [Ratio] 40.2 kg/m2 Kaylene Brianhholz OCULAR CARE AIDE Work Phone: [facility] 01-02-2025 14:54-0500 Body temperature 99.61 [degF] Kaylene Weaverz OCULAR CARE AIDE Work Phone: [facility] 01-02-2025 14:54-0500 Body weight 106.23 kg Kaylene Weaverz OCULAR CARE AIDE Work Phone: [facility] 01-02-2025 14:54-0500 Diastolic blood pressure 84 mm[Hg] Kaylene Weaverz OCULAR CARE AIDE Work Phone: [facility] 01-02-2025 14:54-0500 Heart rate 78 /min Kaylene Weaverz OCULAR CARE AIDE Work Phone: [facility] 01-02-2025 14:54-0500 Respiratory rate 26 /min Kaylene Weaverz OCULAR CARE AIDE Work Phone: [facility] 01-02-2025 14:54-0500 SaO2% (BldA) [Mass fraction] 91 % Kaylene López OCULAR CARE AIDE Work Phone: [facility] 01-02-2025 14:54-0500 Systolic blood pressure 120 mm[Hg] Kaylene Weaverz OCULAR CARE AIDE Work Phone: [facility] 11-28-2024 13:08-0500 Body height 162.6 cm Aida Reese OCULAR CARE AIDE Work Phone: [facility] 11-28-2024 13:08-0500 Body mass index (BMI) [Ratio] 40.51 kg/m2 Aida Reese OCULAR CARE AIDE Work Phone: [facility] 11-28-2024 13:08-0500 Body temperature 97.9 [degF] Aida Reese OCULAR CARE AIDE Work Phone: [facility] 11-28-2024 13:08-0500 Body weight 107.05 kg Aida Reese OCULAR CARE AIDE Work Phone: [facility] 11-28-2024 13:08-0500 Diastolic blood pressure 82 mm[Hg] Aida Reese OCULAR CARE AIDE Work Phone: [facility] 11-28-2024 13:08-0500 Heart rate 79 /min Aida Reese OCULAR CARE AIDE Work Phone: [facility] 11-28-2024 13:08-0500 Respiratory rate 20 /min Aida Reese OCULAR CARE AIDE Work Phone: [facility] 11-28-2024 13:08-0500 SaO2% (BldA) [Mass fraction] 96 % Aida Reese OCULAR CARE AIDE Work Phone: [facility] 11-28-2024 13:08-0500 Systolic blood pressure 148 mm[Hg] Aida Reese OCULAR CARE AIDE Work Phone: [facility] 11-12-2024 10:24-0500 Body mass index (BMI) [Ratio] 40.75 kg/m2 Aida Reese OCULAR CARE AIDE Work Phone: [facility] 11-12-2024 10:24-0500 Body temperature 98.71 [degF] Aida Reese OCULAR CARE AIDE Work Phone: [facility] 11-12-2024 10:24-0500 Body weight 107.68 kg Aida Reese OCULAR CARE AIDE Work Phone: [facility] 11-12-2024 10:24-0500 Diastolic blood pressure 78 mm[Hg] Aida Reese OCULAR CARE AIDE Work Phone: [facility] 11-12-2024 10:24-0500 Heart rate 68 /min Aida Reese OCULAR CARE AIDE Work Phone: [facility] 11-12-2024 10:24-0500 Respiratory rate 18 /min Aida Reese OCULAR CARE AIDE Work Phone: [facility] 11-12-2024 10:24-0500 SaO2% (BldA) [Mass fraction] 92 % Aida Reese OCULAR CARE AIDE Work Phone: [facility] 11-12-2024 10:24-0500 Systolic blood pressure 134 mm[Hg] Aida Reese OCULAR CARE AIDE Work Phone: [facility] 10-15-2024 14:29-0500 Blood Pressure Location MAG JOSE ALEJANDRO [facility] 10-15-2024 14:29-0500 Diastolic blood pressure 75 mm[Hg] MAG JOSE ALEJANDRO [facility] 10-15-2024 14:29-0500 Heart rate 64 /min MAG JOSE ALEJANDRO [facility] 10-15-2024 14:29-0500 Respiratory rate 20 /min MAG JOSE ALEJANDRO [facility] 10-15-2024 14:29-0500 Systolic blood pressure 147 mm[Hg] MAG JOSE ALEJANDRO [facility] 10-07-2024 14:22-0500 Body height 162.6 cm Aida Reese OCULAR CARE AIDE Work Phone: [facility] 10-07-2024 14:22-0500 Body mass index (BMI) [Ratio] 40.85 kg/m2 Aida Reese OCULAR CARE AIDE Work Phone: [facility] 10-07-2024 14:22-0500 Body weight 107.96 kg Aida Reese OCULAR CARE AIDE Work Phone: [facility] 10-07-2024 14:22-0500 Diastolic blood pressure 72 mm[Hg] Aida Reese OCULAR CARE AIDE Work Phone: [facility] 10-07-2024 14:22-0500 Heart rate 64 /min Aida Reese OCULAR CARE AIDE Work Phone: [facility] 10-07-2024 14:22-0500 Respiratory rate 18 /min Aida Reese OCULAR CARE AIDE Work Phone: [facility] 10-07-2024 14:22-0500 SaO2% (BldA) [Mass fraction] 93 % Aida Reese OCULAR CARE AIDE Work Phone: [facility] 10-07-2024 14:22-0500 Systolic blood pressure 110 mm[Hg] Aida Reese OCULAR CARE AIDE Work Phone: [facility] 09-05-2024 12:53-0400 Body height 162.56 cm Aida Reese OCULAR CARE AIDE-C Work Phone: [facility] 09-05-2024 12:53-0400 Body weight 104.32 kg Aida Reese OCULAR CARE AIDE-C Work Phone: [facility] 08-19-2024 11:41-0400 Body mass index (BMI) [Ratio] 40.34 kg/m2 Aida Reese OCULAR CARE AIDE Work Phone: [facility] 08-19-2024 11:41-0400 Body temperature 97.59 [degF] Aida Reese OCULAR CARE AIDE Work Phone: [facility] 08-19-2024 11:41-0400 Body weight 106.59 kg Aida Reese OCULAR CARE AIDE Work Phone: [facility] 08-19-2024 11:41-0400 Diastolic blood pressure 76 mm[Hg] Aida Reese OCULAR CARE AIDE Work Phone: [facility] 08-19-2024 11:41-0400 Heart rate 57 /min Aida Reese OCULAR CARE AIDE Work Phone: [facility] 08-19-2024 11:41-0400 SaO2% (BldA) [Mass fraction] 90 % Aida Reese OCULAR CARE AIDE Work Phone: [facility] 08-19-2024 11:41-0400 Systolic blood pressure 138 mm[Hg] Aida Reese OCULAR CARE AIDE Work Phone: [facility] 07-11-2024 08:25-0400 Body height 162.6 cm Aida Reese OCULAR CARE AIDE Work Phone: [facility] 07-11-2024 08:25-0400 Body mass index (BMI) [Ratio] 41.02 kg/m2 Aida Reese OCULAR CARE AIDE Work Phone: [facility] 07-11-2024 08:25-0400 Body temperature 98.1 [degF] Aida Reese OCULAR CARE AIDE Work Phone: [facility] 07-11-2024 08:25-0400 Body weight 108.41 kg Aida Reese OCULAR CARE AIDE Work Phone: [facility] 07-11-2024 08:25-0400 Diastolic blood pressure 74 mm[Hg] Aida Reese OCULAR CARE AIDE Work Phone: [facility] 07-11-2024 08:25-0400 Heart rate 83 /min Aida Reese OCULAR CARE AIDE Work Phone: [facility] Comment on above: 94% O2 07-11-2024 08:25-0400 Systolic blood pressure 130 mm[Hg] Aida Reese OCULAR CARE AIDE Work Phone: [facility] 03-14-2024 10:30-0400 Body height 165.1 cm Steph Collier Work Phone: [facility] 03-14-2024 10:30-0400 Body mass index (BMI) [Ratio] 39 kg/m2 Steph Collier Work Phone: [facility] 03-14-2024 10:30-0400 Body temperature 97.4 [degF] Steph Collier Work Phone: [facility] 03-14-2024 10:30-0400 Body weight 106.36 kg Steph Collier Work Phone: [facility] 03-14-2024 10:30-0400 Diastolic blood pressure 80 mm[Hg] Steph Collier Work Phone: [facility] 03-14-2024 10:30-0400 Heart rate 77 /min Steph Collier Work Phone: [facility] 03-14-2024 10:30-0400 Inhaled oxygen flow rate 3 L/min Steph Collier Work Phone: [facility] 03-14-2024 10:30-0400 Respiratory rate 20 /min Steph Collier Work Phone: [facility] 03-14-2024 10:30-0400 SaO2% (BldA) [Mass fraction] 92 % Steph Collier Work Phone: [facility] 03-14-2024 10:30-0400 Systolic blood pressure 120 mm[Hg] Steph Collier Work Phone: [facility] 08-17-2023 09:20-0400 Body height 165.1 cm Herberth Joana Other [employer] Other 08-17-2023 09:20-0400 Body mass index (BMI) [Ratio] 38.1 kg/m2 Herberth Joana Other [employer] Other 08-17-2023 09:20-0400 Body temperature 98.8 [degF] Herberth Joana Other [facility] Other 08-17-2023 09:20-0400 Body weight 103.87 kg Herberth Joana Other [facility] Other 08-17-2023 09:20-0400 Diastolic blood pressure 85 mm[Hg] Herberth Joana Other [facility] Other 08-17-2023 09:20-0400 Respiratory rate 18 /min Herberth Joana Other [facility] Other 08-17-2023 09:20-0400 SaO2% (BldA) [Mass fraction] 94 % Herberth Joana Other [facility] Other 08-17-2023 09:20-0400 Systolic blood pressure 151 mm[Hg] Herberth Joana Other [employer] Other 03-02-2023 10:00-0400 Body height 165.1 cm Herberth Joana Other [employer] Other 03-02-2023 10:00-0400 Body mass index (BMI) [Ratio] 37.29 kg/m2 Herberth Joana Other [facility] Other 03-02-2023 10:00-0400 Body temperature 98.9 [degF] Herberth Joana Other [facility] Other 03-02-2023 10:00-0400 Body weight 101.65 kg Herberth Joana Other [employer] Other 03-02-2023 10:00-0400 Diastolic blood pressure 76 mm[Hg] Herberth Joana Other [facility] Other 03-02-2023 10:00-0400 Respiratory rate 20 /min Herberth Joana Other [facility] [employer] Other 03-02-2023 10:00-0400 SaO2% (BldA) [Mass fraction] 96 % Herberth Joana Other [employer] Other 03-02-2023 10:00-0400 Systolic blood pressure 136 mm[Hg] Herberth Joana Other [facility] [employer] Other 12-08-2022 09:30-0500 Diastolic blood pressure 59 mm[Hg] MD Shaikh Ohara Work Phone: [facility] 12-08-2022 09:30-0500 Heart rate 55 /min MD Shaikh Ohara Work Phone: [facility] 12-08-2022 09:30-0500 Respiratory rate 16 /min MD Shaikh Ohara Work Phone: [facility] 12-08-2022 09:30-0500 SaO2% (BldA) [Mass fraction] 96 % MD Shaikh Ohara Work Phone: [facility] 12-08-2022 09:30-0500 Systolic blood pressure 112 mm[Hg] MD Shaikh Ohara Work Phone: [facility] 12-08-2022 06:54-0500 Body height 162.56 cm MD Shaikh Ohara Work Phone: [facility] 12-08-2022 06:54-0500 Body temperature 98.2 [degF] MD Shaikh Ohara Work Phone: [facility] 12-08-2022 06:54-0500 Body weight 104.32 kg MD Shaikh Ohara Work Phone: [facility] 08-09-2022 11:00-0400 Body height 165.1 cm Herberth Joana Other [employer] Other 08-09-2022 11:00-0400 Body mass index (BMI) [Ratio] 37.87 kg/m2 Herberth Joana Other [employer] Other 08-09-2022 11:00-0400 Body temperature 97.2 [degF] Herberth Joana Other [employer] Other 08-09-2022 11:00-0400 Body weight 103.24 kg Herberth Joana Other [employer] Other 08-09-2022 11:00-0400 Diastolic blood pressure 88 mm[Hg] Herberth Joana Other [employer] Other 08-09-2022 11:00-0400 Respiratory rate 20 /min Herberth Joana Other [employer] Other 08-09-2022 11:00-0400 SaO2% (BldA) [Mass fraction] 95 % Herberth Joana Other [employer] Other 08-09-2022 11:00-0400 Systolic blood pressure 133 mm[Hg] Herberth Joana Other [employer] Other 11-17-2021 10:40-0500 Body height 165.1 cm Herberth Joana Other [employer] Other 11-17-2021 10:40-0500 Body mass index (BMI) [Ratio] 37.97 kg/m2 Herberth Joana Other [employer] Other 11-17-2021 10:40-0500 Body temperature 97.8 [degF] Herberth Joana Other [employer] Other 11-17-2021 10:40-0500 Body weight 103.51 kg Herberth Joana Other [employer] Other 11-17-2021 10:40-0500 Diastolic blood pressure 70 mm[Hg] Herberth Joana Other [employer] Other 11-17-2021 10:40-0500 Respiratory rate 18 /min Herberth Joana Other [employer] Other 11-17-2021 10:40-0500 SaO2% (BldA) [Mass fraction] 94 % Herberth Joana Other [employer] Other 11-17-2021 10:40-0500 Systolic blood pressure 130 mm[Hg] Herberth Joana Other [employer] Other 08-30-2021 13:15-0400 Body height 165.1 cm Rena Ginty Other [employer] Other 08-30-2021 13:15-0400 Body mass index (BMI) [Ratio] 36.61 kg/m2 Rena Ginty Other [employer] Other 08-30-2021 13:15-0400 Body temperature 98.7 [degF] Rena Ginty Other [employer] Other 08-30-2021 13:15-0400 Body weight 99.79 kg Rena Ginty Other [employer] Other 08-30-2021 13:15-0400 SaO2% (BldA) [Mass fraction] 90 % Rena Hurd Other [employer] Other Encounters Encounter Date Encounter Type Care Provider Facility Start: 07-08-2025 ambulatory Amalia Kat Facility:[facility] Start: 06-18-2025 End: 06-18-2025 Refill Kaylene Owenz OCULAR CARE AIDE Work Phone: [facility] Comment on above: Moderate episode of recurrent major depressive disorder (HCC) Start: 06-11-2025 End: 06-11-2025 ambulatory Amalia Kat Facility:[facility] Start: 06-11-2025 End: 06-11-2025 Patient encounter procedure Amalia Stephens [facility] Start: 06-04-2025 End: 06-05-2025 Refill Kaylene Owenz OCULAR CARE AIDE Work Phone: [facility] Comment on above: Skin pustule Start: 05-19-2025 End: 05-19-2025 Bamboo flowsheet Kaylene Brianhsuryz OCULAR CARE AIDE Work Phone: [facility] Start: 05-19-2025 End: 05-19-2025 Bamboo flowsheet Kaylene Aichholz OCULAR CARE AIDE Work Phone: [facility] Start: 05-19-2025 End: 05-19-2025 Telephone encounter Kaylene Rene OCULAR CARE AIDE Work Phone: [facility] Start: 05-19-2025 End: 05-19-2025 Office outpatient visit 25 minutes Kaylene Rene OCULAR CARE AIDE Work Phone: [facility] Comment on above: Moderate episode of recurrent major depressive disorder (HCC) (Primary Dx); Morbid (severe) obesity due to excess calories (CMS-HCC); Candidiasis of breast; Skin pustule; RLS (restless legs syndrome) Start: 05-19-2025 End: 05-19-2025 ambulatory KAYLENE AICHHOLZ Not Available Start: 05-12-2025 End: 05-12-2025 Refill Kaylene Aichholz OCULAR CARE AIDE Work Phone: [facility] Comment on above: Chronic heart failur e with preserved ejection fraction (HCC) (Primary Dx); Edema of both lower extremities Start: 05-12-2025 End: 05-12-2025 ambulatory Jayshree Vargas MD Facility:[facility] Start: 04-30-2025 End: 04-30-2025 Clinisync Result Encounter Generic External Data Provider [facility] External Department Unsolicited Start: 04-30-2025 End: 04-30-2025 Clinisync Result Encounter Generic External Data Provider [facility] External Department Unsolicited Start: 04-29-2025 End: 04-29-2025 Refill Kaylene Aichholz OCULAR CARE AIDE Work Phone: [facility] Comment on above: Restless leg syndrom e Start: 04-27-2025 End: 04-28-2025 Refill Kaylene Aichholz OCULAR CARE AIDE Work Phone: [facility] Comment on above: Chronic bilateral lo w back pain without sciatica Start: 04-23-2025 End: 04-23-2025 Refill Kaylene Aichholz OCULAR CARE AIDE Work Phone: [facility] Comment on above: Moderate episode of recurrent major depressive disorder (HCC) (Primary Dx) Start: 04-09-2025 End: 04-09-2025 Bamboo flowsheet Kaylene Aichholz OCULAR CARE AIDE Work Phone: [facility] Start: 04-09-2025 End: 04-09-2025 Bamboo flowsheet Kaylene Aichholz OCULAR CARE AIDE Work Phone: [facility] Start: 04-09-2025 End: 04-09-2025 Office outpatient visit 25 minutes Kaylene Rene OCULAR CARE AIDE Work Phone: [facility] Comment on above: Moderate episode of recurrent major depressive disorder (CMS/HCC) (Primary Dx); Pulmonary emphysema, unspecified emphysema type (CMS/HCC); Chronic respiratory failure with hypoxia (CMS/HCC); Morbid (severe) obesity due to excess calories (CMS/HCC); Restless leg syndrome Start: 04-09-2025 End: 04-09-2025 ambulatory KAYLENE LÓPEZ Not Available Start: 03-24-2025 End: 03-24-2025 ambulatory MAG BLOUNT Facility:[facility] Start: 03-24-2025 End: 03-24-2025 Patient encounter procedure MAG BLOUNT [facility] Start: 03-10-2025 End: 03-12-2025 Clinisync Result Encounter Generic External Data Provider [facility] External Department Unsolicited Start: 03-10-2025 End: 03-12-2025 Clinisync Result Encounter Generic External Data Provider [facility] External Department Unsolicited Start: 03-03-2025 End: 03-03-2025 Clinisync Result Encounter Kaylene López OCULAR CARE AIDE Work Phone: [facility] External Department Unsolicited Start: 03-03-2025 End: 03-03-2025 Clinisync Result Encounter Kaylene López OCULAR CARE AIDE Work Phone: [facility] External Department Unsolicited Start: 02-26-2025 End: 02-26-2025 Refill Kaylene López OCULAR CARE AIDE Work Phone: [facility] Comment on above: Gastroesophageal ref lux disease without esophagitis Start: 02-17-2025 End: 02-17-2025 Bamboo flowsheet Kaylene López OCULAR CARE AIDE Work Phone: [facility] Start: 02-17-2025 End: 02-17-2025 Bamboo flowsheet Kaylene López OCULAR CARE AIDE Work Phone: [facility] Start: 02-17-2025 End: 02-17-2025 Office outpatient visit 25 minutes Kaylene López OCULAR CARE AIDE Work Phone: [facility] Comment on [...] Available Start: 01-23-2025 End: 01-23-2025 ambulatory AB [facility] Start: 01-16-2025 End: 01-16-2025 Office outpatient visit 25 minutes Kaylene López OCULAR CARE AIDE Work Phone: [facility] Comment on above: Pneumonia due [...] Start: 01-15-2025 End: 01-15-2025 Refill Kaylene López OCULAR CARE AIDE Work Phone: [facility] Comment on above: Pneumonia due to inf ectious organism, unspecified laterality, unspecified part of lung (Primary Dx) Start: 01-02-2025 End: 01-02-2025 Office outpatient visit 25 minutes Kaylene López OCULAR CARE AIDE Work Phone: [facility] Comment on above: Flu-like symptoms (P rimary Dx); Morbid (severe) obesity due to excess calories ([facility]/HCC); Body mass index (BMI) 40.0-44.9, adult ([facility]/HCC); Pulmonary emphysema, unspecified emphysema type ([facility]/HCC); Chronic respiratory failure with hypoxia ([facility]); Essential hypertension ([facility]) Start: 01-02-2025 End: 01-02-2025 ambulatory KAYLENE LÓPEZ Not Available Start: 01-02-2025 End: 01-02-2025 Bamboo flowsheet Kaylene López OCULAR CARE AIDE Work Phone: [facility] Start: 01-02-2025 End: 01-04-2025 Bamboo flowsheet Kaylene López OCULAR CARE AIDE Work Phone: [facility] Start: 01-02-2025 End: 01-04-2025 Clinisync Result Encounter Generic External Data Provider [facility] External Department Unsolicited Start: 12-17-2024 End: 12-17-2024 Office outpatient visit 15 minutes Jessica Lazo MD Work Phone: [facility] Comment on above: Seborrheic keratosis (Primary Dx); History of SCC (squamous cell carcinoma) of skin; Lentigines Start: 12-17-2024 End: 12-17-2024 ambulatory JESSICA LAZO Not Available Start: 12-17-2024 End: 12-17-2024 Bamboo flowsheet Ramin KING Work Phone: [facility] Start: 12-17-2024 End: 12-17-2024 Bamboo flowsheet Ramin KING Work Phone: [facility] Start: 12-17-2024 End: 12-17-2024 ambulatory RAMIN MAIER Not Available Start: 12-17-2024 End: 12-17-2024 Office outpatient visit 25 minutes Ramin KING Work Phone: [facility] Comment on above: Acute pain of right knee (Primary Dx); History of total right knee replacement; Right hip pain; Arthritis of right hip Start: 12-15-2024 End: 12-16-2024 Refill Aida Reese OCULAR CARE AIDE Work Phone: [facility] Comment on [...] Start: 12-05-2024 End: 12-09-2024 Refill Aida Reese OCULAR CARE AIDE Work Phone: [facility] Comment on above: Restless leg syndrom e Start: 11-30-2024 End: 12-02-2024 Refill Aida Reese OCULAR CARE AIDE Work Phone: [facility] Comment on above: Gastroesophageal ref lux disease without esophagitis Start: 11-28-2024 End: 11-28-2024 Bamboo flowsheet Aida Reese OCULAR CARE AIDE Work Phone: [facility] Start: 11-28-2024 End: 11-28-2024 Bamboo flowsheet Aida Reese OCULAR CARE AIDE Work Phone: [facility] Start: 11-28-2024 End: 11-28-2024 ambulatory AIDA REESE Not Available Start: 11-28-2024 End: 11-28-2024 Transitional care manage srvc 14 day discharge Aida Reese OCULAR CARE AIDE Work Phone: [facility] Comment on above: Pulmonary emphysema, unspecified emphysema type (CMS/HCC) (Primary Dx) Start: 11-12-2024 End: 11-12-2024 Bamboo flowsheet Aida Reese OCULAR CARE AIDE Work Phone: [facility] Start: 11-12-2024 End: 11-12-2024 Bamboo flowsheet Aida Reese OCULAR CARE AIDE Work Phone: [facility] Start: 11-12-2024 End: 11-12-2024 Office outpatient visit 15 minutes Aida Negronk OCULAR CARE AIDE Work Phone: [facility] Comment on above: Chronic obstructive pulmonary disease with acute lower respiratory infection (CMS/HCC) (Primary Dx); Primary HSV infection of mouth Start: 11-12-2024 End: 11-12-2024 ambulatory AIDA NEGRONK Not Available Start: 10-26-2024 End: 10-28-2024 Refill Aida Vidaltrick OCULAR CARE AIDE Work Phone: [facility] Comment on above: Moderate episode of recurrent major depressive disorder (CMS/HCC); Restless leg syndrome Start: 10-17-2024 End: 10-17-2024 ambulatory [facility] Start: 10-15-2024 End: 10-15-2024 ambulatory MAG BLOUNT Facility:[facility] Start: 10-15-2024 End: 10-15-2024 Lab Drop off MAG BLOUNT [facility] Start: 10-15-2024 End: 10-15-2024 Refill Aida Vidaltrick OCULAR CARE AIDE Work Phone: [facility] Comment on above: Moderate episode of recurrent major depressive disorder (CMS/HCC) Start: 10-15-2024 End: 10-15-2024 ambulatory MAG BLOUNT Facility:[facility] Start: 10-15-2024 End: 10-15-2024 Patient encounter procedure MAG BLOUNT [facility] Start: 10-12-2024 End: 10-14-2024 Refill Aida Negronk OCULAR CARE AIDE Work Phone: [facility] Comment on [...] Available Start: 10-08-2024 ambulatory MAG BLOUNT Facility :[facility] Start: 10-07-2024 End: 10-07-2024 Office outpatient visit 15 minutes Aida Negronk OCULAR CARE AIDE Work Phone: [facility] Comment on above: Urge incontinence (P rimary Dx); Morbid obesity with BMI of 40.0-44.9, adult (CMS/HCC); 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; Stage 3a chronic kidney disease (HCC) (CMS/HCC); Chronic respiratory failure with hypoxia (CMS/HCC) Start: 10-07-2024 End: 10-07-2024 ambulatory AIDA REESE Not Available Start: 10-07-2024 End: 10-07-2024 Bamboo flowsheet Aida Reese OCULAR CARE AIDE Work Phone: [facility] Start: 10-07-2024 End: 10-07-2024 Bamboo flowsheet Aida Reese OCULAR CARE AIDE Work Phone: [facility] Start: 09-25-2024 End: 09-26-2024 Refill Aida Mary Ann OCULAR CARE AIDE Work Phone: [facility] Comment on above: Restless leg syndrom e Start: 09-12-2024 End: 09-12-2024 ambulatory Aida Negronk OCULAR CARE AIDE-C Work Phone: [facility] Work Phone: Start: 09-12-2024 End: 09-12-2024 Departed Referred Aida Reese OCULAR CARE AIDE-C Work Phone: [facility] [place] Start: 09-10-2024 End: 09-10-2024 Orders Only Aida Reese OCULAR CARE AIDE Work Phone: [facility] Comment on above: Vaginal guero (Aleja joy Dx) Start: 09-05-2024 End: 09-05-2024 Departed Referred Aida Reese OCULAR CARE AIDE-C Work Phone: [facility] Work Phone: Start: 09-05-2024 End: 09-05-2024 Patient encounter procedure OCULAR CARE AIDE-C Aida Reese Work Phone: [facility] Work Phone: Start: 09-05-2024 End: 09-05-2024 ambulatory OCULAR CARE AIDE-C Aida Vidaltrick Work Phone: [facility] Work Phone: Start: 09-03-2024 End: 09-03-2024 Refill Rukhsana Rutherford MA [facility] Comment on above: Gastroesophageal ref lux disease without esophagitis Start: 08-19-2024 End: 08-19-2024 Bamboo flowsheet Aida Reese OCULAR CARE AIDE Work Phone: [facility] Start: 08-19-2024 End: 08-19-2024 Bamboo flowsheet Aida Mary Ann OCULAR CARE AIDE Work Phone: [facility] Start: 08-19-2024 End: 08-19-2024 Transitional care manage srvc 7 day discharge Aida Reese OCULAR CARE AIDE Work Phone: [facility] Comment on [...] Start: 08-12-2024 End: 08-27-2024 Refill Aida Reese OCULAR CARE AIDE Work Phone: [facility] Comment on above: Restless leg syndrom e Start: 08-08-2024 End: 08-12-2024 Non-patient / Non-visit OCULAR CARE AIDE-C Aida Reese Work Phone: [facility] Work Phone: Start: 08-08-2024 End: 08-12-2024 [...] 07-15-2024 End: 07-15-2024 ambulatory Jayshree Vargas MD Facility:[facility] Start: 07-12-2024 End: 07-12-2024 Clinisync Result Encounter Aida Reese OCULAR CARE AIDE Work Phone: [facility] External Department Unsolicited Start: 07-12-2024 End: 07-12-2024 Clinisync Result Encounter Aida Reese OCULAR CARE AIDE Work Phone: [facility] External Department Unsolicited Start: 07-11-2024 End: 07-11-2024 Bamboo flowsheet Aida Reese OCULAR CARE AIDE Work Phone: [facility] Start: 07-11-2024 End: 07-11-2024 Bamboo flowsheet Aida Reese OCULAR CARE AIDE Work Phone: [facility] Start: 07-11-2024 End: 07-11-2024 ambulatory [facility] Start: 07-11-2024 End: 07-11-2024 Office outpatient visit 25 minutes Aida Reese OCULAR CARE AIDE Work Phone: [facility] Comment on above: Benign essential HTN (CMS/HCC) (Primary Dx); Chronic heart failure with preserved ejection fraction (CMS/HCC); Severe persistent asthma without complication (CMS/HCC); Moderate mixed hyperlipidemia not requiring statin therapy (CMS/HCC); Morbid obesity with BMI of 40.0-44.9, adult (CMS/HCC) Start: 07-11-2024 End: 07-11-2024 ambulatory AIDA REESE Not Available Start: 07-02-2024 End: 07-02-2024 ambulatory [facility] Start: 06-29-2024 Non-patient / Non-visit OCULAR CARE AIDE-C B chase Reese Work Phone: [facility] Work Phone: Start: 06-28-2024 End: 07-02-2024 Clinisync Result Encounter Generic External Data Provider [facility] External Department Unsolicited Start: 06-28-2024 End: 07-02-2024 Clinisync Result Encounter Generic External Data Provider [facility] External Department Unsolicited Start: 06-25-2024 ambulatory [facility] Start: 06-24-2024 End: 06-24-2024 ambulatory Jayshree Vargas MD Facility:[facility] Start: 06-21-2024 End: 06-21-2024 ambulatory [facility] Start: 06-12-2024 End: 06-12-2024 ambulatory AIDA REESE Not Available Start: 05-13-2024 End: 05-13-2024 ambulatory [facility] Start: 03-14-2024 End: 03-14-2024 ambulatory Steph Collier Work Phone: [facility] Work Phone: Start: 03-14-2024 End: 03-14-2024 Patient encounter procedure Steph Collier Work Phone: [facility] Work Phone: Start: 03-06-2024 Non-patient / Non-visit Steph Collier Work Phone: [facility] [employer] Work Phone: Start: 11-06-2023 Patient encounter procedure Generic Provider [facility] Start: 09-07-2023 End: 09-07-2023 ambulatory Herberth Bernard Other [facility] [employer] Other Start: 09-07-2023 Telephone encounter Herberth Joana [facility] Start: 08-28-2023 End: 08-28-2023 ambulatory Herberth Joana Other [employer] Other Start: 08-28-2023 Telephone encounter Herberth Joana [facility] Start: 08-17-2023 End: 08-17-2023 ambulatory Herberth Joana Other [employer] Other Start: 08-17-2023 Office outpatient vi sit 25 minutes Herberth Joana [facility] Start: 04-04-2023 End: 04-04-2023 ambulatory SHAIKH Dimitry OHARA Facility:[facility] Start: 03-24-2023 End: 03-25-[address] STEPH GRANADOS Facility:[facility] Start: 03-02-2023 End: 03-02-2023 ambulatory Herberth Joana Other [employer] Other Start: 03-02-2023 Office outpatient vi sit 25 minutes Herberth Joana [facility] Start: 02-25-2023 End: 02-26-2023 ambulatory HERBERTH JOANA Facility:[facility] Start: 02-22-2023 End: 02-23-2023 ambulatory BO MCCLAIN . Facility:[facility] Start: 12-15-2022 End: 12-16-[address] JACK HALL . Facility:[facility] Start: 12-08-2022 End: 12-08-2022 Admission to same day surgery center MD Shaikh Ohara Work Phone: [facility] Work Phone: Start: 12-08-2022 End: 12-08-2022 ambulatory MD Shaikh Ohara Work Phone: [facility] Work Phone: Start: 11-11-2022 End: 11-11-[address] JACK HALL . Facility:[facility] Start: 11-09-2022 End: 11-09-2022 ambulatory Azkatherine Gonzalezs Other [employer] Other Start: 11-09-2022 Telephone encounter Azkatherine Gonzalezs [facility] Start: 08-19-2022 End: 08-20-2022 ambulatory HERBERTH JOANA Facility:[facility] Start: 08-09-2022 End: 08-09-2022 ambulatory Herberth Joana Other [employer] Other Start: 08-09-2022 Office outpatient vi sit 10 minutes Herberth Joana [facility] Start: 08-09-2022 Telephone encounter Herberth Joana [facility] Start: 08-05-2022 Telephone encounter Herberth Joana [facility] Start: 08-05-2022 End: 08-06-2022 ambulatory HERBERTH JOANA [place] [employer] Other Start: 07-08-2022 End: 07-08-2022 ambulatory Gato Domingo Other [employer] Other Start: 07-08-2022 Telephone encounter Gato Cesar ck [facility] Start: 07-05-2022 End: 07-06-2022 ambulatory MESSER H FAWWAD Facility:[facility] Start: 06-08-2022 End: 06-09-2022 ambulatory MESSER H FAWWAD Facility:[facility] Start: 06-07-2022 End: 06-07-2022 ambulatory EMSSER H FAWWAD Facility:[facility] Start: 01-24-2022 End: 01-25-2022 ambulatory PHYSICIAN UNKNOWN Facility:[facility] Start: 11-17-2021 End: 11-17-2021 ambulatory Herberth Joana Other [employer] Other Start: 11-17-2021 Office outpatient vi sit 15 minutes Herberth Joana [facility] Start: 08-30-2021 Office outpatient vi sit 15 minutes Rena Ginty [facility] Start: 09-11-2020 End: 09-11-2020 Chart abstracting Miguelito Buck Work Phone: Hematology/Oncology Start: 09-11-2020 End: 09-11-2020 Patient encounter procedure External Provider [facility] Start: 09-11-2020 Results Only External Provider [facility] Start: 09-30-2019 End: 09-30-2019 Patient encounter procedure [facility] [place] Start: 07-07-2017 End: 07-07-2017 [facility] Start: 05-24-2004 Evaluation and management of inpatient [facility] Start: 04-26-2004 Evaluation and management of inpatient [facility] [place] Procedures Date Procedure Procedure Detail Performing Clinician Start: 04-30-2025 Radex hip unilateral with pelvis 2-3 views Generic External Data Provider Start: 03-10-2025 BLOOD CULTURE 2 Generic External Data Provider Start: 03-10-2025 BLOOD CULTURE 1 Generic External Data Provider Start: 03-03-2025 End: 03-03-2025 Screening mammography bi 2-view breast inc [facility] Kaylene López OCULAR CARE AIDE Work Phone: Start: 01-02-2025 BLOOD CULTURE 1 [...] Start: 07-12-2024 ALL CBC WITH AUTO DIFF Iada Reese OCULAR CARE AIDE Work Phone: Start: 06-28-2024 BLOOD CULTURE 2 Generic External Data Provider Start: 06-28-2024 BLOOD CULTURE 1 Generic External Data Provider Start: 02-29-2024 Mammography Generic Pr ovider Start: 12-08-2022 End: 12-08-2022 Colonoscopy MD Shaikh Ohara Work Phone: Start: 09-11-2020 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 Nursing Scheduler al Provider Start: 09-11-2020 EXTERNAL LAB External [...] 12-08-2032 Screening for malignant neoplasm of colon [facility] Start: 12-15-2026 End: 12-15-2026 Patient encounter procedure [facility] Start: 04-09-2026 Urine screening for protein Diabetes: Urine Protein Screening [facility] Comment on above: Postponed from 1975 (Other Medical Reasons) Start: 03-03-2026 Screening for malignant neoplasm of breast Mammogram [facility] Start: 07-17-2025 End: 07-17-2025 Patient encounter procedure 07/17/2025 9:00 AM EDT Office Visit [facility] [address] [place] [address] Kaylene López NP [address] [place] [phone] [facility] Start: 07-16-2025 End: 07-16-2025 Patient encounter procedure 07/16/2025 2:45 PM EDT Office Visit [facility] [address] [place] [phone] Jessica Lazo MD [address] [place] [address] [facility] Start: 07-07-2025 Influenza vaccination Influenza Vaccine (#1) [facility] Start: 06-17-2025 End: 06-17-2025 Patient encounter procedure [facility] Start: 05-19-2025 End: 05-19-2025 Patient encounter procedure [facility] Comment on above: Moderate episode of recurrent major depr essive disorder (HCC) (Primary Dx); Morbid (severe) obesity due to excess calories ([facility]) Start: 04-09-2025 End: 04-09-2025 Patient encounter procedure 04/09/2025 11:00 AM EDT Office Visit [facility] [address] [place] [address] Kaylene López NP [address] [place] [address] Pulmonary emphysema, unspecified emphysema type (CMS/HCC) (Primary Dx); Chronic respiratory failure with hypoxia (CMS/HCC); Morbid (severe) obesity due to excess calories (CMS/HCC) [facility] Comment on above: Pulmonary emphysema, unspecified emphyse ma type (CMS/HCC) (Primary Dx); Chronic respiratory failure with hypoxia (CMS/HCC); Morbid (severe) obesity due to excess calories (CMS/HCC) Start: 03-26-2025 End: 03-26-2025 Patient encounter procedure 03/26/2025 11:30 AM EDT Office Visit [facility] [address] [place] [address] Kaylene López, RIKKI [address] [place] [address] [facility] Start: 02-28-2025 Screening for malignant neoplasm of breast Mammogram [facility] Start: 02-17-2025 End: 02-17-2025 Patient encounter procedure [facility] Comment on above: Spinal stenosis, lumbar region [...] breast cancer Expected: 02/16/2025 (Approximate), Expires: 03/18/2026 [facility] Work Phone: Comment on above: Expected: 02/16/2025 (Approximate), Expi res: 03/18/2026 Start: 01-16-2025 End: 01-16-2025 Patient encounter procedure 01/16/2025 10:00 AM EDT Office Visit [facility] [address] [place] [address] Kaylene López, OCULAR CARE AIDE [address] [place] [phone] [facility] Start: 01-09-2025 End: 01-09-2025 Patient encounter procedure 01/09/2025 1:40 PM EST Office Visit [facility] [address] [place] [address] Kaylene López, OCULAR CARE AIDE [address] [place] [phone] [facility] Start: 01-09-2025 End: 01-09-2025 Patient encounter procedure 01/09/2025 8:30 AM EST [facility] [address] [place] [address] Aida Reese NP [address] [place] [address] [facility] Start: 01-02-2025 End: 01-02-2025 Patient encounter procedure 01/02/2025 2:40 PM EST Office Visit [facility] [address] [place] [address] Kaylene López, OCULAR CARE AIDE [address] [place] [phone] Pulmonary emphysema, unspecified emphysema type (CMS/HCC) (Primary [...] 12/09/2024 2:30 PM EST Office Visit [facility] [address] [place] [phone] Aida Reese NP [address] [place] [address] [facility] Start: 11-20-2024 End: 11-20-2024 Patient encounter procedure [facility] Start: 11-15-2024 End: 11-15-2024 Patient encounter procedure 11/15/2024 10:30 AM EST Office Visit [facility] [address] [place] [address] Jayna Goode PA [address] [place] [address] [facility] Start: 11-12-2024 End: 11-12-2025 XR Chest 2 Views XR chest 2 views Imaging Routine Chronic obstructive pulmonary disease with acute lower respiratory infection (CMS/HCC) Expected: 11/12/2024, Expires: 11/12/2025 [facility] Work Phone: Comment on above: Expected: 11/12/2024, Expires: Start: 11-12-2024 End: 11-12-2024 Patient encounter procedure 11/12/2024 10:30 AM EST Office Visit [facility] [address] [place] [phone] Aida Reese NP [address] [place] [address] Arrived [facility] Comment on above: Arrived Start: 10-11-2024 End: 10-11-2024 Patient encounter procedure 10/11/2024 8:50 AM EST Office Visit [facility] [address] [place] [address] Jayna Goode PA [address] [place] [address] 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 [facility] Comment on above: 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 Start: 10-09-2024 End: 10-09-2024 Patient encounter procedure 10/09/2024 9:00 AM EST [facility] [address] [place] [address] Aida Reese NP [address] [place] [address] [facility] Start: 10-07-2024 End: 10-07-2024 Patient encounter procedure 10/07/2024 2:30 PM EST Office Visit [facility] [address] [place] [address] Aida Reese NP [address] [facility] [phone] Arrived [facility] Comment on above: Arrived Start: 09-12-2024 Phacoemulsification of cataract with intraocular lens implantation OR Cataract PHACO W/IOL/Vitrectomy (Left) [facility] Start: 08-19-2024 End: 08-19-2025 Clostridioides difficile toxin A+B tcdA+tcdB genes [Presence] in Stool by KAYLEE with probe detection Clostridium difficile,EIA Microbiology Routine Diarrhea, unspecified type Expected: 08/19/2024 (Approximate), Expires: 08/19/2025 [facility] Work Phone: Comment on above: Expected: 08/19/2024 (Approximate), Expi res: 08/19/2025 Start: 08-19-2024 End: 08-19-2024 [facility] Comment on above: Arrived Start: 07-11-2024 End: 07-11-2025 CBC W Auto Differential panel - Blood CBC and differential Lab Routine Benign essential HTN (CMS/HCC) Chronic heart failure with preserved ejection fraction (CMS/HCC) Moderate mixed hyperlipidemia not requiring statin therapy (CMS/HCC) Morbid obesity with BMI of 40.0-44.9, adult (CMS/HCC) Expected: 07/11/2024 (Approximate), Expires: 07/11/2025 [facility] Comment on above: Expected: 07/11/2024 (Approximate), Expi res: 07/11/2025 Start: 07-11-2024 End: 07-11-2025 Comprehensive metabolic 2000 panel - Serum or Plasma Comprehensive metabolic panel Lab Routine Benign essential HTN (CMS/HCC) Chronic heart failure with preserved ejection fraction (CMS/HCC) Moderate mixed hyperlipidemia not requiring statin therapy (CMS/HCC) Morbid obesity with BMI of 40.0-44.9, adult (CMS/HCC) Expected: 07/11/2024 (Approximate), Expires: 07/11/2025 [facility] Comment on above: Expected: 07/11/2024 (Approximate), Expi res: 07/11/2025 Start: 07-11-2024 End: 07-11-2025 Lipid 1996 panel - Serum or Plasma Lipid panel Lab Routine Moderate mixed hyperlipidemia not requiring statin therapy (CMS/HCC) Expected: 07/11/2024 (Approximate), Expires: 07/11/2025 [facility] Comment on above: Expected: 07/11/2024 (Approximate), Expi res: 07/11/2025 Start: 07-11-2024 End: 07-11-2025 Microalbumin/Creatinine panel in random Urine Microalbumin / creatinine urine ratio Lab Routine Benign essential HTN (CMS/HCC) Expected: 07/11/2024 (Approximate), Expires: 07/11/2025 [facility] Work Phone: Comment on above: Expected: 07/11/2024 (Approximate), Expi res: 07/11/2025 Start: 07-11-2024 End: 07-11-2024 Patient encounter procedure [facility] Comment on above: Benign essential HTN (CMS/HCC) (Primary Dx); Chronic heart failure with preserved ejection fraction (CMS/HCC); Severe persistent asthma without complication (CMS/HCC) Start: 07-07-2024 Influenza vaccination Influenza Vaccine (#1) [facility] Start: 12-08-2022 [facility] Start: 07-07-2020 Influenza vaccination INFLUENZA (#1) [facility] Start: 2006 SHINGRIX VACCINE (1 of 2) SHINGRIX VACCINE (1 of 2) [facility] Start: 2006 Tuberculosis screening COLORECTAL CANCER SCREENING,SEE MODIFIER [facility] Start: 2001 DIABETES SCREEN DIABETES SCREEN [facility] Start: 2001 LIPID SCREEN LIPID SCREEN [facility] Start: 1996 Mammography MAMMOGRAM [facility] Start: 1986 HPV TESTING HPV TESTING [facility] Start: 1977 PAP TESTING PAP TESTING [facility] Start: 1975 Urine microalbumin profile DTAP,TDAP,TD (1 - Tdap) [facility] Start: 1975 Urine screening for protein Diabetes: Urine Protein Screening [facility] Start: 1974 HEPATITIS C SCREENING HEPATITIS C SCREENING [facility] Start: 1974 HIV SCREENING HIV SCREENING [facility] Start: 1966 Glaucoma screening Diabetes: Retinopathy Screening [facility] Start: 1956 Hemoglobin A1c measurement Diabetes: Hemoglobin A1C [facility] Start: 1956 Screening for malignant neoplasm of colon [facility] BLOOD CULTURE 1 BLOOD CULTURE 1 Lab Routine 08/08/2024 8:30 PM EDT [facility] BLOOD CULTURE 1 BLOOD CULTURE 1 Lab Routine 06/28/2024 8:20 PM EDT [facility] BLOOD CULTURE 1 BLOOD CULTURE 1 Lab Routine 01/02/2025 4:30 PM EST [facility] BLOOD CULTURE 1 BLOOD CULTURE 1 Lab Routine 03/10/2025 10:25 PM EDT [facility] BLOOD CULTURE 2 BLOOD CULTURE 2 Lab Routine 08/08/2024 8:20 PM EDT [facility] BLOOD CULTURE 2 BLOOD CULTURE 2 Lab Routine 06/28/2024 8:21 PM EDT [facility] BLOOD CULTURE 2 BLOOD CULTURE 2 Lab Routine 03/10/2025 10:32 PM EDT [facility] Dermatopathology exam Dermatopat hology exam Pathology and Cytology Timed Neoplasm of unspecified behavior of bone, soft tissue, and skin Release Upon Ordering for 1 Occurrences starting 10/11/2024 [facility] Work Phone: Comment on above: Release Upon Ordering for 1 Occurrences starting 10/11/2024 LOWER RESPIRATORY CULTURE LOWER RESPIRATORY CULTURE Lab Routine 08/12/2024 9:50 AM EDT [facility] Work Phone: Patient Education Colon Polypect shahram Hemorrhoids (DC) Diverticulosis (DC) [facility] Work Phone: [facility] Immunizations Immunization Date Immunization Notes Care Provider [facility] 09-06-2024 influenza, high dose seasonal, preservative-free Kaylene López OCULAR CARE AIDE Work Phone: [facility] 09-06-2024 influenza virus vaccine, unspecified formulation Aida Reese OCULAR CARE AIDE Work Phone: [facility] 08-26-2023 Influenza, High-dose Seasonal, Quadrivalent, Preservative Free Generic Provider [facility] 08-26-2023 influenza virus vaccine, unspecified formulation Generic Provider [facility] 08-18-2023 RSV, recombinant, protein subunit RSVpreF, adjuvant reconstitu, 120mcg/0.5mL, PF (Arexvy) Generic Provider [facility] 08-09-2023 Pneumococcal Conjuga te PCV 20 Generic Provider [facility] 11-01-2022 zoster vaccine recombinant Generic Provider [facility] 08-27-2022 zoster vaccine recombinant Generic Provider [facility] 08-04-2022 influenza virus vaccine, unspecified formulation MAG BLOUNT [facility] 08-04-2022 Influenza, High-dose Seasonal, Quadrivalent, Preservative Free Generic Provider [facility] 08-04-2022 SARS-CoV-2 (COVID-19 ) [id number] MAG BLOUNT [facility] 03-25-2022 SARS-CoV-2 (COVID-19 ) mRNA-1273 vaccine MAG BLOUNT [facility] 09-06-2021 SARS-CoV-2 (COVID-19 ) mRNA-1273 vaccine MAG BLOUNT [facility] 08-06-2021 influenza virus vaccine, unspecified formulation MAG BLOUNT [facility] 08-06-2021 Influenza, High-dose Seasonal, Quadrivalent, Preservative Free Generic Provider [facility] 02-04-2021 SARS-CoV-2 (COVID-19 ) mRNA-1273 vaccine MAG BLOUNT [facility] Comment on above: Result Comment: 2024: [id number] 01-07-2021 SARS-CoV-2 (COVID-19 ) mRNA-1273 vaccine MAG BLOUNT [facility] Comment on above: Result Comment: 2024: [id number] 08-07-2020 influenza virus vaccine, unspecified formulation MAG BLOUNT [facility] 08-07-2020 influenza, injectabl e, quadrivalent, preservative free Generic Provider [facility] 08-09-2019 influenza virus vaccine, unspecified formulation MAG BLOUNT [facility] 08-09-2019 influenza, injectabl e, quadrivalent, preservative free Generic Provider [facility] 10-19-2018 pneumococcal polysaccharide vaccine, 23 valent Generic Provider [facility] 08-08-2018 influenza virus vaccine, unspecified formulation MAG BLOUNT [facility] 08-08-2018 influenza, injectabl e, quadrivalent, preservative free Generic Provider [facility] 07-18-2018 Depo-Medrol 40 mg Rena Gint y Other [facility] Other 01-31-2018 Depo-Medrol 40 mg Rena Gint y Other [facility] Other 08-10-2017 influenza virus vaccine, unspecified formulation MAG BLOUNT [facility] 08-10-2017 influenza, injectabl e, quadrivalent, preservative free Generic Provider [facility] 08-09-2017 influenza virus vaccine, split virus (incl. purified surface antigen) Generic Provider [facility] 08-09-2017 influenza virus vaccine, unspecified formulation Steph Collier Work Phone: [facility] 08-09-2017 influenza, seasonal, injectable, preservative free Rena Ginty Other [facility] Other 09-02-2009 novel [id number], preservative-free, injectable Generic Provider [facility] Healthcare Payers Date Payer Category Payer Medicare [id number] 2024 Medicaid [id number] 2024 Medicaid [id number] 2024 Medicare [id number] 2024 Private Health Insurance [id number] 2024 Medicare [id number] 2023 Medicare (Managed Care) 1.2. [id number] 2022 Unknown 2021 Medicare [id number] 2019 Medicaid [place] [id number] 2019-Present Medicaid [id number] 2017 Medicare [id number] 2016 Medicare MEDICARE MEDICAR E A AND B [id number] 2016-Present [place] Medicare [id number] 1959 Unknown [id number] 1956 Unknown [id number] 2.16.840.1.140612.3.579.2.6 47 1956 Unknown [id number] 2.16.840.1.855367.3.579.2.5 93 1956 Unknown [id number] 2.16.840.1.438377.3.579.2.5 93 1956 Unknown [id number] 2.16.840.1.480538.3.579.2.5 93 1956 Unknown [id number] 2.16.840.1.749286.3.579.2.5 93 1956 Unknown [id number] 2.16.840.1.623478.3.579.2.5 93 1956 Unknown [id number] 2.16.840.1.327431.3.579.2.5 93 1956 Unknown [id number] 2.16.840.1.081403.3.579.2.5 93 1956 Unknown [id number] 2.16.840.1.443625.3.579.2.5 93 1956 Unknown [id number] 2.16.840.1.522979.3.579.2.5 93 1956 Unknown [id number] 2.16.840.1.999420.3.579.2.5 93 1956 Unknown [id number] 2.16.840.1.924404.3.579.2.5 93 1956 Unknown [id number] 2.16.840.1.007262.3.579.2.7 1956 Unknown [id number] 2.16.840.1.558214.3.579.2.7 1956 Unknown [id number] 2.16.840.1.438706.3.579.2.7 1956 Unknown [id number] 2.16.840.1.040754.3.579.2.1 259 1956 Unknown [id number] 2.16.840.1.612000.3.579.2.1 259 1956 Unknown [id number] 2.16.840.1.204564.3.579.2.1 259 1956 Unknown [id number] 2.16.840.1.889000.3.579.2.1 259 1956 Unknown [id number] 2.16.840.1.466289.3.579.2.1 259 1956 Unknown [id number] 2.16.840.1.712148.3.579.2.1 259 1956 Unknown [id number] 2.16.840.1.771448.3.579.2.1 259 1956 Unknown [id number] 2.16.840.1.851539.3.579.2.1 259 1956 Unknown [id number] 2.16.840.1.756564.3.579.2.1 259 1956 Unknown [id number] 2.16.840.1.540423.3.579.2.1 259 1956 Unknown [id number] 2.16.840.1.146783.3.579.2.1 259 1956 Unknown [id number] 2.16.840.1.839382.3.579.2.1 259 1956 Unknown [id number] 2.16.840.1.005301.3.579.2.1 259 1956 Unknown [id number] 2.16.840.1.452473.3.579.2.1 259 1956 Unknown [id number] 2.16.840.1.433691.3.579.2.1 259 1956 Unknown [id number] 2.16.840.1.602978.3.579.2.1 259 1956 Unknown [id number] 2.16.840.1.840919.3.579.2.1 259 1956 Unknown [id number] 2.16.840.1.799381.3.579.2.1 96 1956 Unknown [id number] 2.16.840.1.432098.3.579.2.1 96 1956 Unknown [id number] 2.16.840.1.271259.3.579.2.1 96 1956 Unknown [id number] 2.16.840.1.750943.3.579.2.7 27 1956 Unknown [id number] 2.16.840.1.559765.3.579.2.7 27 Medicare [id number] Self-pay Self Pay [id number] Unknown [id number] Social History Date Type Detail Facility Tobacco smoking stat us [facility] Unknown if ever smoked [facility] Start: 1955 Sex Assigned At Female F [facility] Start: 09-11-2020 End: 12-05-2023 Tobacco smoking status NHIS Never smoker [facility] Start: 09-11-2020 End: 12-05-2023 Tobacco use and exposure Never used [facility] Start: 09-11-2020 End: 05-19-2025 Alcohol intake Lifetime non-drinker (finding) [facility] Start: 09-11-2020 History SDOH Alcohol Frequency 1 [facility] Start: 1955 Sex Assigned At Not on file [facility] Start: 10-26-2023 End: 11-25-2024 Sex [...] Start: 02-17-2010 End: 11-13-2024 Sex Female (finding) [facility] How hard is it for y ou to pay for the very basics like food, housing, medical care, and heating Somewhat hard [facility] Do you feel stress - tense, restless, nervous, or anxious, or unable to sleep at night because your mind is troubled all the time - these days [OSQ] Only a little [facility] Sexual Orientation [facility] NEGATED: Highlighted rowStart: NINF History of tobacco use Passive smoker [facility] Goals Date Patient Goal Desired Activity /State Personal health goal Functional Status Date Assessment Result Facility 03-24-2025 Functional Status N/A [facility] 10-15-2024 Functional Status N/A [facility] Clinical Notes 08-30-2021 to 05-19-2025 Telephone Encounter [...] if no help let me know LESLIE [facility] 05-19-2025 Miscellaneous Notes Call patient to let [...] me know LESLIE documented in this encounter [facility] 05-19-2025 History of Present illness Narrative Yeast [...] History: Diagnosis Date Alcohol screening Arthritis Asthma ([facility]) At moderate risk for fall Benign essential HTN Breast cancer screening by mammogram Chronic back pain greater than 3 months duration Chronic heart failure with preserved ejection fraction (HCC) Chronic kidney disease, stage III (moderate) ([facility]) Chronic obstructive pulmonary disease (COPD) ([facility]) Colon cancer (HCC) Colorectal cancer ([facility]) Contact w and exposure to oth viral communicable diseases COPD exacerbation ([facility]) Coronary artery disease Depression Emphysema, unspecified ([facility]) Encounter for gynecological examination (general) (routine) without abnormal findings Essential (primary) hypertension Exposure to STD Gastroesophageal reflux disease General deterioration of health HPV in female Hyperlipidemia Hyperuricemia Intertrigo Iron deficiency anemia Low back pain Morbid obesity with BMI of 40.0-44.9, adult ([facility]) Osteoporosis screening Pneumonia Positive depression screening Post-menopausal Restless leg syndrome Right hip pain Urge incontinence Vitamin D deficiency Past Surgical History: Procedure Laterality Date BACK SURGERY 2004 CARDIAC CATHETERIZATION Left 06/14/2014 Left Heart-Ventricular Puncture CARDIAC CATHETERIZATION Left 08/13/2018 Left Heart-Ventricular Puncture FOOT SURGERY 09/2015 JOINT REPLACEMENT Left 08/01/2016 Hip replacement REVISION TOTAL HIP ARTHROPLASTY Left 03/[address] LINN SPINAL FUSION 05/07/[place] [facility] [place]OTAL H[place]ROPLASTY Left 08/30/2019 REMOVED TOTAL [...] not take any documented in this encounter [facility] 04-09-2025 History of Present illness Narrative Associated Problem(s): Depression (CMS/HCC) Current med paxil Will add on medication 3L Images from the original note were not included. Diana Champion is a 69 y.o. female presents with chief complaint of Hospital Follow-up HPI: Here for hospital follow up: Discharged to [place] on 03/25/25. 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 General instructions Take [id number] and prescription medicines only as told by [...] provider. Document Revised: 07/12/2021 Document Reviewed: 07/12/2021 [employer] Patient Education 2023 [employer]. Follow Up Care 10/15/2024 15:05:18 With:MAG BLOUNT PA-C, URL Address: [address] [address] When:Within 3 Month(s) [facility] 03-24-2025 Note Patient Education Obstetrics and Gynecology [...] health care provider. General instructions ??? Take aaxy-rhb-hspaaqv and prescription medicines only as told by [...] drink, and whe (more content not included)... [facility] 02-17-2025 History of Present illness Narrative Associated [...] ferrous sulfate 325 mg, Daily with breakfast Lzighxazmjc-Mairtbaln-Toalmq (Trelegy Ellipta) 200-62.5-25 MCG/ACT aerosol powder 1 [...] Morbid obesity with BMI of 40.0-44.9, adult (CMS/[facility]) Osteoporosis screening Pneumonia Positive depression screening Post-menopausal Restless leg syndrome Right hip pain Urge incontinence Vitamin D deficiency Past Surgical History: Procedure Laterality Date BACK SURGERY 2004 CARDIAC CATHETERIZATION Left 06/14/2014 Left Heart-Ventricular Puncture CARDIAC CATHETERIZATION Left 08/13/2018 Left Heart-Ventricular Puncture FOOT SURGERY 09/2015 JOINT REPLACEMENT Left 08/01/2016 Hip replacement REVISION TOTAL HIP ARTHROPLASTY Left 03/[address] LINN SPINAL FUSION 05[place]07[place] [facility] [place] Left 08/30/2019 REMOVED TOTAL [...] significantly elevated right sided pressure at 65 [facility] Cardiology Gastroesophageal reflux disease Recommendations: freq small [...] invasive vent at night 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 Edema of both lower extremities Elevate legs [...] invasive vent at night 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 She's been in and out of [facility] for pneumonia recently. Had echo a few [...] breath since then. She has seen her track mechanic. Her chest pain is noncardiac. She has [...] mouth every other day., Disp: , Rfl: rcuzbnyasbd-jimjirpzs-shkccfnc 100-62.5-25 mcg blister with device, , Disp: [...] mg tablet, YOKO (more content not included)... [facility] 01-16-2025 History of Present illness Narrative Associated [...] new atb and sputum result. She will turkey picker new atb after appt. Images from the [...] chills, +weakness, has home health Nurse from [facility] coming today, not sure if any therapy [...] ferrous sulfate 325 mg, Daily with breakfast Ffeodapvorq-Awxiozagk-Nofnra (Trelegy Ellipta) 200-62.5-25 MCG/ACT aerosol powder 1 [...] History: Diagnosis Date Alcohol screening Arthritis Asthma ([facility]) At moderate risk for fall Benign essential HTN ([facility]) Breast cancer screening by mammogram Chronic back pain greater than 3 months duration Chronic heart failure with preserved ejection fraction ([facility]) Chronic kidney disease, stage III (moderate) (HCC) ([facility]) Chronic obstructive pulmonary disease (COPD) ([facility]/HCC) Colon cancer ([facility]/HCC) Colorectal cancer ([facility]/HCC) Contact w and exposure to oth viral communicable diseases COPD exacerbation ([facility]/HCC) Coronary artery disease ([facility]/HCC) Depression ([facility]/HCC) Emphysema, unspecified ([facility]) Encounter for gynecological examination (general) (routine) without abnormal findings Essential (primary) hypertension ([facility]/HCC) Exposure to STD Gastroesophageal reflux disease General deterioration of health HPV in female Hyperlipidemia (CMS/HCC) Hyperuricemia Intertrigo Iron deficiency anemia Low back pain Morbid obesity with BMI of 40.0-44.9, adult ([facility]) Osteoporosis screening Pneumonia Positive depression screening Post-menopausal Restless leg syndrome Right hip pain Urge incontinence Vitamin D deficiency Past Surgical History: Procedure Laterality Date BACK SURGERY 2004 CARDIAC CATHETERIZATION Left 06/14/2014 Left Heart-Ventricular Puncture CARDIAC CATHETERIZATION Left 08/13/2018 Left Heart-Ventricular Puncture FOOT SURGERY 09/2015 JOINT REPLACEMENT Left 08/01/2016 Hip replacement REVISION TOTAL HIP ARTHROPLASTY Left 03/[address] LINN SPINAL FUSION 05/07/[place] [facility] [place]OTAL HIP ARTHROPLASTY Left 08/30/2019 REMOVED TOTAL [...] stage 3a (HCC) (CMS/HCC) Monitor labs Depression ([facility]/HCC) Relevant Medications PARoxetine (Paxil) 40 MG [...] Noted on ECHO findings 05/29 Essential hypertension ([facility]/HCC) DASH diet Limit caffeine Contact office if chest pain, pressure, dizziness, shortness of breath, swelling legs Recommend slow position changes Current meds: does not take any Severe persistent asthma, uncomplicated (CMS/HCC) Is under the care of dr mcclain Current meds for treatment of asthma/COPD: albuterol, trelegy, singulair Chronic respiratory failure with hypoxia ([facility]) Is oxygen dependant Screening mammogram for breast cancer Relevant Orders Bilateral screening mammogram Pneumonia due to infectious organism - Primary Respiratory panel: culture pseudomonas Was sent home on doxy, will have her stop this, and start levoquin 750mg daily for 7 day Recent hospitalization to [facility]: back to back, 01/02/25 and 01/08/25 I [...] significantly elevated right sided pressure at 65 [facility] Cardiology Associated Problem(s): Severe persistent asthma, uncomplicated (CMS/HCC) Is under the care of dr mcclain Current meds for treatment of asthma/COPD: albuterol, trelegy, singulair Associated Problem(s): Pneumonia due to infectious organism Respiratory panel: culture pseudomonas Was sent home on doxy, will have her stop this, and start levoquin 750mg daily for 7 day Recent hospitalization to [facility]: back to back, 01/02/25 and 01/08/25 I have reviewed her hospital notes, labs, discharge info as well Associated Problem(s): Chronic respiratory failure with hypoxia (CMS/HCC) Is oxygen dependant, non invasive vent at night samsa documented in this encounter [facility] 01-16-2025 Instructions Kaylene López NP - 01/16/2025 [...] OT for home documented in this encounter [facility] 01-15-2025 History of Present illness Narrative Associated Problem(s): Pneumonia due to infectious organism Respiratory panel: culture pseudomonas Was sent home on doxy, will have her stop this, and start levoquin 750mg daily for 7 day documented in this encounter [facility] 01-02-2025 History of Present illness Narrative Associated Problem(s): Flu-like symptoms Neg, still strong clinical suspicion for flu, d/t severe pulmonary conditions and weakness will send her to [facility] ER for evaluation DD: pneumonia, covid, flu, RSV Associated Problem(s): Chronic respiratory failure with hypoxia (CMS/HCC) Oxygen level 88-90% w walking, normal 94-95% w oxygen Associated Problem(s): Chronic obstructive pulmonary disease (COPD) (CMS/HCC) [facility] track mechanic Pt started having symptoms on Monday with [...] Diarrhea started today, others have been sick [facility] track mechanic Flu Symptoms This is a new problem. [...] ferrous sulfate 325 mg, Daily with breakfast Gvbqojoeoxo-Zbgxjxdxd-Gjsvya (Trelegy Ellipta) 200-62.5-25 MCG/ACT aerosol powder 1 [...] (HCC) (CMS/HCC) Chronic obstructive pulmonary disease (COPD) ([facility]/HCC) Colon cancer ([facility]/HCC) Colorectal cancer ([facility]/HCC) Contact w and exposure to oth viral communicable diseases COPD exacerbation (CMS/HCC) Coronary artery disease ([facility]/HCC) Depression ([facility]/HCC) Emphysema, unspecified ([facility]) Encounter for gynecological examination (general) (routine) without abnormal findings Essential (primary) hypertension ([facility]/HCC) Exposure to STD Gastroesophageal reflux disease General deterioration of health HPV in female Hyperlipidemia ([facility]/HCC) Hyperuricemia Intertrigo Iron deficiency anemia Low back pain Morbid obesity with BMI of 40.0-44.9, adult ([facility]) Osteoporosis screening Pneumonia Positive depression screening Post-menopausal Restless leg syndrome Right hip pain Urge incontinence Vitamin D deficiency Past Surgical History: Procedure Laterality Date BACK SURGERY 2004 CARDIAC CATHETERIZATION Left 06/14/2014 Left Heart-Ventricular Puncture CARDIAC CATHETERIZATION Left 08/13/2018 Left Heart-Ventricular Puncture FOOT SURGERY 09/2015 JOINT REPLACEMENT Left 08/01/2016 Hip replacement REVISION TOTAL HIP ARTHROPLASTY Left 03/[address] LINN SPINAL FUSION 05/07/[place] [facility] [place]OTAL HIP [place]THROPLASTY Left 08/30/2019 REMOVED TOTAL [...] This Visit Chronic obstructive pulmonary disease (COPD) ([facility]/HCC) [facility] track mechanic Morbid (severe) obesity due to excess calories ([facility]) Discussed with patient their BMI (actual, verses recommended). We have also discussed lifestyle modifications: attempts to perform physical activity as chronic conditions allow, also to monitor dietary intake: increasing protein/fruits/veggies and lowering carb intake (unless contraindicated). Limit sodas, juices, and sugary drinks. Essential hypertension ([facility]/HCC) DASH diet Limit caffeine Contact office [...] conditions and weakness will send her to [facility] ER for evaluation DD: pneumonia, covid, flu, [...] not take any documented in this encounter [facility] 12-17-2024 History of Present illness Narrative Skin [...] Visit: 6 months documented in this encounter [facility] 12-17-2024 History of Present illness Narrative Images [...] ferrous sulfate 325 mg, Daily with breakfast Tdtrhwlqjja-Mbaxwkmhm-Tvqvjp (Trelegy Ellipta) 200-62.5-25 MCG/ACT aerosol powder 1 [...] be necessary. Pt will consult with her Reception Interviewer to see if she would be a [...] requiring urgent evaluation. documented in this encounter [facility] 12-13-2024 History of Present illness Narrative Images [...] skin of chest Chest - Medial (Center) [place] macule at the biopsy site. Destr of lesion Complexity: simple Destruction method: cryotherapy Informed consent: discussed and consent obtained Informed consent comment: The risks of the procedure were discussed, including, but not limited to risks of scarring, darker or typing element machine operator pigmentary changes, recurrence, infection, and incomplete removal [...] or tenderness. Additional details: Previous accession number: [id number] Discussed treatment options excision vs cryotherapy in detail. Patient opted for cryotherapy. Cryotherapy completed today, see procedure note. Return to clinic prior to next scheduled visit for any signs or symptoms of recurrence, reviewed the signs and symptoms. Recommended 6 month skin exam. Next Visit: as scheduled documented in this encounter [facility] 11-28-2024 History of Present illness Narrative Associated Problem(s): Chronic obstructive pulmonary disease (COPD) ([facility]) Was admitted to [facility] for COPD with acute exacerbation. Was treated [...] for Hospital Follow-up. HPI Was admitted to [facility] for COPD with acute exacerbation. Was treated [...] This Visit Chronic obstructive pulmonary disease (COPD) ([facility]) - Primary Was admitted to [facility] for COPD with acute exacerbation. Was treated [...] hospital follow up. documented in this encounter [facility] 11-28-2024 Instructions Aida Reese NP - 11/28/2024 1:[address] Mcclain's office to see if he wants to see you for hospital follow up sooner than January. Take and finish all medications as directed. documented in this encounter [facility] 11-12-2024 History of Present illness Narrative Associated Problem(s): Chronic obstructive pulmonary disease (COPD) ([facility]) 5 days ago woke up, [...] This Visit Chronic obstructive pulmonary disease (COPD) ([facility]) - Primary 5 days ago woke up, [...] 1 g tablet documented in this encounter [facility] 11-12-2024 Instructions Aida Reese NP - 11/12/2024 [...] [facility] EM[facility]Y DEPARTMENT. documented in this encounter [facility] 10-17-2024 Note Attestation signed by Emelia Yoo [...] Age: 69 y.o. : 1955 Account No.: [id number] Referring physician: Dr. Bo Mcclain Chief complaint: Recurreny pneumonia HPI Diana Champion is a 69 y.o. female with PMHx of chronic hypoxic respiratory failure on 3L home O2, tracheobronchomalacia who is presenting to clinic for follow up. Patient was previously referred by Dr. Bo Mcclain of [facility] in June of 2024. Patient had been having frequent pneumonias requiring hospitalization thought to be secondary to dynamic airway collapse. Therefore we performed bronchoscopy with airway inspection on 07/02/2024 which showed severe tracheobronchomalacia with mucous plugging. She subsequently followed up post procedure and different treatment options were discussed. 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 Her family history is positive for COPD [...] Diagnosis Date Allergic rhinitis Anemia Asthma Cancer ([facility]) Chronic heart failure with preserved ejection fraction ([facility]) Chronic hypoxic respiratory failure ([facility]) Chronic kidney disease COPD (chronic obstructive pulmonary disease) ([facility]) Coronary artery disease Depression Diabetes mellitus ([facility]) Dyspnea GERD (gastroesophageal reflux disease) Hyperlipidemia Lumbar spondylosis Other secondary pulmonary hypertension ([facility]) Pneumonia Primary osteoarthritis of right [...] mg by bessie (more content not included)... [facility] 10-15-2024 Hospital Discharge instructions Patient Education [...] your health care provider. General instructions Take amcm-klp-doggzbu and prescription medicines only as told by [...] provider. Document Revised: 07/12/2021 Document Reviewed: 07/12/2021 [employer] Patient Education 2023 [employer]. Follow Up Care 10/11/2024 14:37:09 With:JOSE ALEJANDRO MICHAUD, MAG Hester, JACQUELINEL Address: [facility] [address] [facility] [address] When:Within 3 Month(s) [facility] 10-15-2024 Note Urology Office/Clini c Note [...] BMI: 40.27 Assessment/Plan CHF - [facility] CKD - Joana COPD/Pulm - Samsa/Omballi. Required [...] could include cysto, urodynamics, Botox, SNM. Orders: 39217 Measure Post Void residual urine and/or bladder capacity by US- non-imaging E&M of New Patient Moderate 45-59 Min 77799 Urine Culture Urnls Dip Stick Auto w/o Microscopy POC 80688 Follow-up With When Contact Information JOSE ALEJANDRO MICHAUD, MAG Hester, URL In 3 months [address] [place] [address] Additional Instructions: Patient [...] drop(s) Allergies f (more content not included)... [facility] Comment on above: Result Comment: Elec [...] health care provider. General instructions ??? Take uqjo-xra-rfnzrfa and prescription medicines only as told by [...] drink, and whe (more content not included)... [facility] 10-11-2024 History of Present illness Narrative [...] pending biopsy results documented in this encounter [facility] 10-07-2024 History of Present illness Narrative Associated [...] Mcclain and Dr. Yoo Cardiology- [facility] Ortho- Dr. Corrales Nephrology- Dr. Sky Was [...] Chronic kidney disease, stage III (moderate) (HCC) ([facility]) Follows with Dr. Bernard. Monitor CMP, avoid nephrotoxic agents. Morbid obesity with BMI of 40.0-44.9, adult (CMS/[facility]) Discussed with patient their BMI (actual, verses recommended). We have also discussed lifestyle modifications: attempts to perform physical activity as chronic conditions allow, also to monitor dietary intake: increasing protein/fruits/veggies and lowering carb intake (unless contraindicated). Limit sodas, juices, and sugary drinks. Urge incontinence - Primary Relevant Orders Ambulatory referral to Urology Chronic respiratory failure with hypoxia ([facility]) Following closely with Dr. Mcclain. [...] referral to Dermatology documented in this encounter [facility] 09-03-2024 Telephone encounter Note Pt requesting a refill on her Omeprazole BECK:08/19/2024 NOV:10/09/2024 [facility] 09-03-2024 Miscellaneous Notes Pt requesting a refill on her Omeprazole BECK:08/19/2024 NOV:10/09/2024 documented in this encounter [facility] 08-22-2024 Telephone encounter Note Patient called in saying you wanted her to do a stool sample, but she has not gotten an order for that, so she wasn't sure when she was supposed to do that. Also her pregabalin needs refilled but she said that kareen had a hard time getting it in last time. MAYANK [facility] 08-22-2024 Miscellaneous Notes Patient called in saying [...] spelled that right) nurse phone number is [phone] or you can contact patient she said. MAYANK documented in this encounter [facility] 08-19-2024 History of Present illness Narrative Last Monday left hospital and has been having diarrhea about 6 times a day. Images from the original note were not included. Subjective Patient ID: Diana Champion is a 69 y.o. female who presents for No chief complaint on file.. [facility] Hospital follow up; Was seen at [facility] 08/08/24-08/12/24 ARF; Was discharged home on Azithromycin [...] This Visit Moderate persistent asthma with exacerbation (CMS/[facility]) - Primary Other Visit Diagnoses Diarrhea, unspecified type Relevant Orders Clostridium difficile,EIA documented in this encounter [facility] 08-19-2024 Instructions Aida Reese NP - 08/19/2024 11:30 AM EDT Continue Augmentin. Start taking OTC probiotics Have stool culture completed to test for C.Difficile. If negative continue ATB regimen as directed. If positive we will treat accordingly. Keep all follow up appointments as scheduled. documented in this encounter [facility] 08-13-2024 Note Gram Stain Evaluation This specimen is of good quality and is acceptable for routine [facility] 08-13-2024 Note [facility] GRAM STAIN EVALUATION bacterial culture. [facility] 08-13-2024 Telephone encounter Note Patient's home health [...] spelled that right) nurse phone number is [phone] or you can contact patient she said. JN [facility] 07-16-2024 Telephone encounter Note Pt informed of lab results and provider recommendations. Pt does do chair exercises four times a week and walks (with walker) but due to her health conditions she is limited. Pt is in a wheelchair with very limited ambulation -SCR [facility] 07-16-2024 Miscellaneous Notes Pt informed of lab [...] Aida Reese NP documented in this encounter [facility] 07-16-2024 Telephone encounter Note ----- Message from [...] 9:29 AM EDT To: Aida Reese NP [facility] 07-11-2024 Note Attestation signed by Emelia Yoo [...] Age: 68 y.o. 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 Her family history is positive for COPD [...] was initiated by the patient and conducted xgm-yhia-oz-face with use of audio-only real time telephone [...] by mouth every other day. Historical Provider, romzipzayet-ahmtcrune-fsgrdrqs 100-62.5-25 mcg blister with device Historical Provider, [...] (Theragran-M) 9 mg (more content not included)... [facility] 07-11-2024 History of Present illness Narrative Associated Problem(s): Morbid obesity with BMI of 40.0-44.9, adult ([facility]) Discussed with patient their BMI (actual, verses recommended). We have also discussed lifestyle modifications: attempts to perform physical activity as chronic conditions allow, also to monitor dietary intake: increasing protein/fruits/veggies and lowering carb intake (unless contraindicated). Limit sodas, juices, and sugary drinks. Associated Problem(s): Severe persistent asthma without complication ([facility]) Currently taking Trelegy Singulair Albuterol Was seen on 06/12/24 for Hospital follow up. Is following closely with Pulmonology; Tracheobronchomalacia Associated Problem(s): Hyperlipidemia (CMS/HCC) Currently not on any medications: Lifestyle and dietary modifications. Recheck lipid pane today. Associated Problem(s): Chronic heart failure with preserved ejection fraction (CMS/HCC) Follows [facility] Was seen in May 2024 Lasix 20mg Associated Problem(s): Benign essential HTN (CMS/HCC) Currently not taking any medications. Bp is well controlled. Averages 120's-130's. Images from the original note were not included. Subjective Patient ID: Diana Champion is a 68 y.o. female who presents for Follow-up. HPI Specialists: Pulmonology- Dr. Mcclain and Dr. Yoo Cardiology- [facility] Ortho- Dr. Corrales Nephrology- Dr. Sky Was seeing Urology 5 years ago for urinary retention. Now is having mixed incontinence. Does not want referral today, would like to revisit at next visit. Was seen on 06/12/24 for Hospital follow up. Is following closely with Pulmonology; Tracheobronchomalacia HTN: Currently not taking any medications. Bp is well controlled. Averages 120's-130's. [facility]EF[facility] May [facility] Lasix [...] with preserved ejection fraction (CMS/HCC) Follows [facility]- [facility] Was seen in May 2024 Lasix 20mg Relevant Orders Comprehensive metabolic panel CBC and differential Hyperlipidemia (CMS/HCC) Currently not on any medications: Lifestyle and dietary modifications. Recheck lipid pane today. Relevant Orders Lipid panel Comprehensive metabolic panel CBC and differential Morbid obesity with BMI of 40.0-44.9, adult (CMS/[facility]) Discussed with patient their BMI (actual, verses recommended). We have also discussed lifestyle modifications: attempts to perform physical activity as chronic conditions allow, also to monitor dietary intake: increasing protein/fruits/veggies and lowering carb intake (unless contraindicated). Limit sodas, juices, and sugary drinks. Relevant Orders Comprehensive metabolic panel CBC and differential Severe persistent asthma without complication ([facility]) Currently taking Trelegy Singulair Albuterol Was seen on 06/12/24 for Hospital follow up. Is following closely with Pulmonology; Tracheobronchomalacia documented in this encounter [facility] 07-11-2024 Instructions Aida Reese NP - 07/11/2024 8:30 AM EDT FASTING labs ordered. Nothing to eat or drink for 12 hours prior to blood draw. Water and black coffee ok. documented in this encounter [facility] 07-02-2024 Note Patient: Yannick Champion Pre-sedation Evaluation: Sedation necessary for: Analgesia Requesting service: Pulmonary History of Present Illness: Refer to H &P [facility]/Current Medications: Reviewed Recent sedation/surgery (24 hours): No Review of Systems: Negative NPO guidelines met: Yes Physical Exam: Airway Mallampati: II Neck ROM: full Cardiovascular (-) murmur, friction rub, carotid bruits Dental Pulmonary (+) on nasal cannula (-) tachypnea, accessory muscle use (-) wheezes, rales Plan: ASA 3 Moderate Proceed with consious sedation for Bronchoscopy and BAL [facility] 07-02-2024 Note Attestation signed by Ghulam [...] chronic cough POSTPROCEDURE DIAGNOSIS: Severe tracheobronchomalacia PROCEDURE PHYSIOTHERAPIST'S ASSISTANT: Goran Canseco ATTENDING PHYSICIAN: Dr. Ghulam Petersen [...] by trained RN and supervised by the Reception Interviewer. Continuous monitoring of heart rate, respiratory rate, [...] 1-2 weeks for treatment options for tracheobronchomalacia [facility] 06-25-2024 Note Attestation signed by Emelia [...] Age: 68 y.o. : 1955 Account No.: [id number] Referring physician: Dr. Bo Mcclain Chief complaint: Recurreny pneumonia HPI Diana Champion is a 68 y.o. female with PMHx of reportedly COPD, chronic hypoxic respiratory failure on 2L home O2 who is presenting to clinic as a new patient after being referred by Dr. Bo Baker of [facility]. 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 Yes Historical Provider, zryskkwfoqy-nwbgwqtmm-neqeyupm 100-62.5-25 mcg blister with device Yes Historical [...] ta (more content not included)... [facility] 05-13-2024 Note [facility] Cardiology Clinic Note Chief Complaint: Patient here for 1 year follow up CAD and hypertension. She was recently discharged from [facility] for Covid-19. She says hydrochlorothiazide [...] breath since then. She has seen her track mechanic. Her chest pain is noncardiac. She has [...] a past medical history of Asthma, Cancer ([facility]), COPD (chronic obstructive pulmonary disease) ([facility]), Coronary artery disease, GERD (gastroesophageal [...] mouth every other day., Disp: , Rfl: xypbirlhurs-ziqjswqzo-ksfzhmwv 100-62.5-25 mcg blister with device, , Disp: [...] Examination: GENERAL: a (more content not included)... [facility] 09-07-2023 Evaluation note Encounter Date Diagnosis Assessment Notes Sep, Hypomagnesemia (ICD-10 - E83.42) [employer] Other 10-23-2023 Evaluation note* Encounter Date Diagnosis Assessment Notes Treatment Notes Treatment Clinical Notes Aug, Nico bolden cr kid I-IV (ICD-10 - I12.9) [facility] Other 10-12-2023 Evaluation note* Encounter Date Diagnosis [...] PPI induced GI losses. Continue oral Magnesium [facility] Other 05-19-2023 NotePROCEDURE: XR HIP RT 2 3V W PELVIS HISTORY: Pain in right hip joint , chronic COMPARISON: XR L-spine 02/26/2019, XR left hip with pelvis 03/11/2017 FINDINGS: BONES:Complete loss of the right hip joint space with bkvk-qa-fkon articulation, subchondral sclerosis and cysts, and large periarticular degenerative osteophytes. No fracture or dislocation. Left hip replacement. Mechanical fusion of L5-S1 and moderate dextroscoliosis of lumbar spine. SOFT TISSUES:No visible soft tissue swelling. EFFUSION:None visible. OTHER: Negative. IMPRESSION: 1. Marked degenerative joint disease of the right hip; progressed since prior study. 2. Stable surgical changes. Electronically authenticated by: STEPH GRANADOS Date: 2023-03-24 12:55[facility]04-27-2023 Evaluation note* Encounter Date Diagnosis [...] PPI induced GI losses. Continue oral Magnesium [employer] [facility] [employer] [facility]* Encounter Date Diagnosis Assessment Notes Treatment Notes Treatment Clinical Notes Nov, Hypokalemia (ICD-10 - E87.6) Nov, Hypomagnesemia (ICD-10 - E83.42) [employer] [facility] [employer] Other 10-04-2022 Evaluation note* Encounter Date [...] office does not accept her new insurance. [facility] Other 09-02-2022 Evaluation note* Encounter Date Diagnosis Assessment Notes Treatment Notes Treatment Clinical Notes Jul, History of colon cancer (ICD-10 - Z85.038) [facility] Other 01-12-2022 Evaluation note* Encounter Date Diagnosis [...] potassium wasting. I have prescribed oral potassium. [employer] Other 10-25-2021 Evaluation note* Encounter Date Diagnosis [...] care instructions given in writting by [facility] document [employer] Other Evaluation + Plan note Future Appointments Appointment Date:01/13/2025 09:40:00 AM Scheduled Provider:MAG BLOUNT PA-C Location:[facility] Appointment Type:URO Office Visit Diagnostic Tests Pending * Urine Culture 10/15/24 [facility] Evaluation + Plan note Future Appointments Appointment Date:01/13/2025 09:40:00 AM Scheduled Provider:MAG BLOUNT PA-C Location:[facility] Appointment Type:URO Office Visit [facility] evaluation + Plan note Future Appointments Appointment Date:06/23/2025 09:40:00 AM Scheduled Provider:MAG BLOUNT PA-C Location:[facility] Appointment Type:URO Office Visit [facility] evaluation + Plan note Future Appointments Appointment Date:07/08/2025 02:30:00 PM Scheduled Provider:Amalia Stephens PA-C Location:[facility] Appointment Type:URO Office Visit [facility] evaluation noteNo Reissued [employer] Other Evaluation note* Diagnosis Onset Date Resolution Status History of colon cancer acut e [facility] Work Phone: evaluation note* Diagnosis Onset Date Resolution Status Hypokalemia acute Hypomagnesemia acute Stage 3 chronic kidney disease acute COVID noneactive Pneumonia noneactive [facility] Work Phone: evaluation note* Diagnosis Moderate persistent asthma with exacerbation ([facility]/HCC)- Primary Unspecified asthma, with exacerbation Non-recurrent acute suppurative otitis media of both ears without spontaneous rupture of tympanic membranes Colorectal cancer ([facility]) Malignant neoplasm of colon, unspecified site Chronic heart failure with preserved ejection fraction ([facility]) Pulmonary emphysema, unspecified emphysema type ([facility]/HCC) Moderate episode of recurrent major depressive disorder ([facility]/HCC)- Primary Moderate persistent asthma with exacerbation ([facility]) Unspecified asthma, with exacerbation Medicare annual wellness visit, subsequent Severe persistent asthma with acute exacerbation ([facility])- Primary Hospital discharge follow-up Other follow-up examination Severe persistent asthma without complication ([facility]/HCC)- Primary Essential hypertension ([facility]/HCC) Unspecified essential hypertension JEANNE (acute kidney injury) ([facility]) Leukocytosis, unspecified type Chronic respiratory failure with hypoxia ([facility]) Chronic bilateral low back pain without sciatica- Primary Vitamin D deficiency Chronic bilateral low back pain without sciatica- Primary Pneumonia due to infectious organism, unspecified laterality, unspecified part of lung- Primary Screening mammogram for breast cancer Chronic respiratory failure with hypoxia ([facility]) Pulmonary emphysema, unspecified emphysema type ([facility]/HCC) Essential hypertension ([facility]) Unspecified essential hypertension Morbid obesity with BMI of 40.0-44.9, adult ([facility]) Hospital discharge follow-up- Primary Other follow-up examination Chronic respiratory failure with hypoxia ([facility]/HCC) Severe persistent asthma without complication ([facility]/HCC) Severe persistent asthma with acute exacerbation ([facility]/HCC)- Primary Severe persistent asthma with exacerbation ([facility]/HCC)- Primary Unspecified asthma, with exacerbation Hospital discharge follow-up- Primary Other follow-up examination Chronic respiratory failure with hypoxia ([facility])- Primary Hospital discharge follow-up Other follow-up examination Benign essential HTN ([facility]/HCC) Chronic heart failure with preserved ejection fraction (CMS/HCC) Severe persistent asthma without complication (CMS/HCC) Moderate mixed hyperlipidemia not requiring statin therapy ([facility]) Morbid obesity with BMI of 40.0-44.9, adult ([facility]) Opioid use Chronic, continuous use of opioids Chronic back pain greater than 3 months duration Moderate persistent asthma with exacerbation ([facility])- Primary Unspecified asthma, with exacerbation Diarrhea, unspecified type documented in this encounter [facility] HealthcareEvaluation note* Diagnosis Moderate persistent asthma with exacerbation ([facility]/HCC)- Primary Unspecified asthma, with exacerbation Non-recurrent acute suppurative otitis media of both ears without spontaneous rupture of tympanic membranes Colorectal cancer ([facility]) Malignant neoplasm of colon, unspecified site Chronic heart failure with preserved ejection fraction ([facility]) Pulmonary emphysema, unspecified emphysema type ([facility]/HCC) Moderate episode of recurrent major depressive disorder ([facility])- Primary Moderate persistent asthma with exacerbation ([facility]) Unspecified asthma, with exacerbation Medicare annual wellness visit, subsequent Severe persistent asthma with acute exacerbation ([facility])- Primary Hospital discharge follow-up Other follow-up examination Severe persistent asthma without complication ([facility]/HCC)- Primary Essential hypertension ([facility]/HCC) Unspecified essential hypertension JEANNE (acute kidney injury) ([facility]) Leukocytosis, unspecified type Chronic respiratory failure with hypoxia ([facility]) Chronic bilateral low back pain without sciatica- Primary Vitamin D deficiency Chronic bilateral low back pain without sciatica- Primary Pneumonia due to infectious organism, unspecified laterality, unspecified part of lung- Primary Screening mammogram for breast cancer Chronic respiratory failure with hypoxia ([facility]) Pulmonary emphysema, unspecified emphysema type ([facility]/HCC) Essential hypertension ([facility]) Unspecified essential hypertension Morbid obesity with BMI of 40.0-44.9, adult ([facility]) Hospital discharge follow-up- Primary Other follow-up examination Chronic respiratory failure with hypoxia ([facility]/HCC) Severe persistent asthma without complication ([facility]/HCC) Severe persistent asthma with acute exacerbation ([facility]/HCC)- Primary Severe persistent asthma with exacerbation ([facility]/HCC)- Primary Unspecified asthma, with exacerbation Hospital discharge follow-up- Primary Other follow-up examination Chronic respiratory failure with hypoxia ([facility]/HCC)- Primary Hospital discharge follow-up Other follow-up examination Benign essential HTN ([facility]/HCC) Chronic heart failure with preserved ejection fraction (CMS/HCC) Severe persistent asthma without complication (CMS/HCC) Moderate mixed hyperlipidemia not requiring statin therapy ([facility]/HCC) Morbid obesity with BMI of 40.0-44.9, adult ([facility]) Opioid use Chronic, continuous use of opioids Chronic back pain greater than 3 months duration Restless leg syndrome Restless legs syndrome (RLS) documented in this encounter [facility] HealthcareEvaluation note* Diagnosis Moderate persistent asthma with exacerbation ([facility]/HCC)- Primary Unspecified asthma, with exacerbation Non-recurrent acute suppurative otitis media of both ears without spontaneous rupture of tympanic membranes Colorectal cancer ([facility]) Malignant neoplasm of colon, unspecified site Chronic heart failure with preserved ejection fraction ([facility]/HCC) Pulmonary emphysema, unspecified emphysema type ([facility]) Moderate episode of recurrent major depressive disorder ([facility])- Primary Moderate persistent asthma with exacerbation ([facility]) Unspecified asthma, with exacerbation Medicare annual wellness visit, subsequent Severe persistent asthma with acute exacerbation ([facility]/HCC)- Primary Hospital discharge follow-up Other follow-up examination Severe persistent asthma without complication ([facility]/HCC)- Primary Essential hypertension ([facility]/HCC) Unspecified essential hypertension JEANNE (acute kidney injury) ([facility]) Leukocytosis, unspecified type Chronic respiratory failure with hypoxia ([facility]/HCC) Chronic bilateral low back pain without sciatica- Primary Vitamin D deficiency Chronic bilateral low back pain without sciatica- Primary Pneumonia due to infectious organism, unspecified laterality, unspecified part of lung- Primary Screening mammogram for breast cancer Chronic respiratory failure with hypoxia (CMS/HCC) Pulmonary emphysema, unspecified emphysema type ([facility]/HCC) Essential hypertension ([facility]/HCC) Unspecified essential hypertension Morbid obesity with BMI of 40.0-44.9, adult ([facility]) Hospital discharge follow-up- Primary Other follow-up examination Chronic respiratory failure with hypoxia (CMS/HCC) Severe persistent asthma without complication (CMS/HCC) Severe persistent asthma with acute exacerbation (CMS/HCC)- Primary Severe persistent asthma with exacerbation ([facility]/HCC)- Primary Unspecified asthma, with exacerbation Hospital discharge follow-up- Primary Other follow-up examination Chronic respiratory failure with hypoxia (CMS/HCC)- Primary Hospital discharge follow-up Other follow-up examination Benign essential HTN (CMS/HCC) Chronic heart failure with preserved ejection fraction ([facility]/HCC) Severe persistent asthma without complication ([facility]/HCC) Moderate mixed hyperlipidemia not requiring statin therapy (CMS/HCC) Morbid obesity with BMI of 40.0-44.9, adult ([facility]) Opioid use Chronic, continuous use of opioids Chronic back pain greater than 3 months duration Gastroesophageal reflux disease without esophagitis Esophageal reflux documented in this encounter [facility] HealthcareEvaluation noteNo assessment information availableFair[facility] Work Phone: Evaluation note* Diagnosis Moderate persistent asthma with exacerbation ([facility]/HCC)- Primary Unspecified asthma, with exacerbation Non-recurrent acute suppurative otitis media of both ears without spontaneous rupture of tympanic membranes Colorectal cancer ([facility]/HCC) Malignant neoplasm of colon, unspecified site Chronic heart failure with preserved ejection fraction ([facility]/HCC) Pulmonary emphysema, unspecified emphysema type ([facility]/HCC) Moderate episode of recurrent major depressive disorder ([facility]/HCC)- Primary Moderate persistent asthma with exacerbation ([facility]/HCC) Unspecified asthma, with exacerbation Medicare annual wellness visit, subsequent Severe persistent asthma with acute exacerbation ([facility]/HCC)- Primary Hospital discharge follow-up Other follow-up examination Severe persistent asthma without complication (CMS/HCC)- Primary Essential hypertension ([facility]/HCC) Unspecified essential hypertension JEANNE (acute kidney injury) ([facility]/HCC) Leukocytosis, unspecified type Chronic respiratory failure with hypoxia ([facility]/HCC) Chronic bilateral low back pain without sciatica- Primary Vitamin D deficiency Chronic bilateral low back pain without sciatica- Primary Pneumonia due to infectious organism, unspecified laterality, unspecified part of lung- Primary Screening mammogram for breast cancer Chronic respiratory failure with hypoxia (CMS/HCC) Pulmonary emphysema, unspecified emphysema type (CMS/HCC) Essential hypertension ([facility]/HCC) Unspecified essential hypertension Morbid obesity with BMI of 40.0-44.9, adult ([facility]) Hospital discharge follow-up- Primary Other follow-up examination Chronic respiratory failure with hypoxia (CMS/HCC) Severe persistent asthma without complication (CMS/HCC) Severe persistent asthma with acute exacerbation (CMS/HCC)- Primary Severe persistent asthma with exacerbation ([facility]/HCC)- Primary Unspecified asthma, with exacerbation Hospital discharge follow-up- Primary Other follow-up examination Chronic respiratory failure with hypoxia (CMS/HCC)- Primary Hospital discharge follow-up Other follow-up examination Benign essential HTN (CMS/HCC) Chronic heart failure with preserved ejection fraction (CMS/HCC) Severe persistent asthma without complication (CMS/HCC) Moderate mixed hyperlipidemia not requiring statin therapy ([facility]) Morbid obesity with BMI of 40.0-44.9, adult ([facility]) Opioid use Chronic, continuous use of opioids Chronic back pain greater than 3 months duration Vaginal guero- Primary Candidiasis of vulva and vagina documented in this encounter [facility] HealthcareEvaluation note* Diagnosis Moderate persistent asthma with exacerbation (CMS/HCC)- Primary Unspecified asthma, with exacerbation Non-recurrent acute suppurative otitis media of both ears without spontaneous rupture of tympanic membranes Colorectal cancer ([facility]) Malignant neoplasm of colon, unspecified site Chronic heart failure with preserved ejection fraction ([facility]/HCC) Pulmonary emphysema, unspecified emphysema type ([facility]/HCC) Moderate episode of recurrent major depressive disorder ([facility])- Primary Moderate persistent asthma with exacerbation ([facility]) Unspecified asthma, with exacerbation Medicare annual wellness visit, subsequent Severe persistent asthma with acute exacerbation ([facility]/HCC)- Primary Hospital discharge follow-up Other follow-up examination Severe persistent asthma without complication (CMS/HCC)- Primary Essential hypertension ([facility]) Unspecified essential hypertension JEANNE (acute kidney injury) ([facility]) Leukocytosis, unspecified type Chronic respiratory failure with hypoxia ([facility]/HCC) Chronic bilateral low back pain without sciatica- Primary Vitamin D deficiency Chronic bilateral low back pain without sciatica- Primary Pneumonia due to infectious organism, unspecified laterality, unspecified part of lung- Primary Screening mammogram for breast cancer Chronic respiratory failure with hypoxia (/HCC) Pulmonary emphysema, unspecified emphysema type ([facility]/HCC) Essential hypertension ([facility]/HCC) Unspecified essential hypertension Morbid obesity with BMI of 40.0-44.9, adult ([facility]) Hospital discharge follow-up- Primary Other follow-up examination Chronic respiratory failure with hypoxia (CMS/HCC) Severe persistent asthma without complication (CMS/HCC) Severe persistent asthma with acute exacerbation ([facility]/HCC)- Primary Severe persistent asthma with exacerbation ([facility]/HCC)- Primary Unspecified asthma, with exacerbation Hospital discharge follow-up- Primary Other follow-up examination Chronic respiratory failure with hypoxia ([facility])- Primary Hospital discharge follow-up Other follow-up examination Benign essential HTN ([facility]) Chronic heart failure with preserved ejection fraction ([facility]) Severe persistent asthma without complication ([facility]) Moderate mixed hyperlipidemia not requiring statin therapy ([facility]) Morbid obesity with BMI of 40.0-44.9, adult ([facility]) Opioid use Chronic, continuous use of opioids Chronic back pain greater than 3 months duration Restless leg syndrome Restless legs syndrome (RLS) documented in this encounter [facility] HealthcareEvaluation note* Diagnosis Moderate persistent asthma with exacerbation ([facility]/HCC)- Primary Unspecified asthma, with exacerbation Non-recurrent acute suppurative otitis media of both ears without spontaneous rupture of tympanic membranes Colorectal cancer ([facility]) Malignant neoplasm of colon, unspecified site Chronic heart failure with preserved ejection fraction ([facility]) Pulmonary emphysema, unspecified emphysema type ([facility]) Moderate episode of recurrent major depressive disorder ([facility])- Primary Moderate persistent asthma with exacerbation ([facility]) Unspecified asthma, with exacerbation Medicare annual wellness visit, subsequent Severe persistent asthma with acute exacerbation ([facility])- Primary Hospital discharge follow-up Other follow-up examination Severe persistent asthma without complication ([facility]/HCC)- Primary Essential hypertension ([facility]) Unspecified essential hypertension JEANNE (acute kidney injury) ([facility]) Leukocytosis, unspecified type Chronic respiratory failure with hypoxia ([facility]) Chronic bilateral low back pain without sciatica- Primary Vitamin D deficiency Chronic bilateral low back pain without sciatica- Primary Pneumonia due to infectious organism, unspecified laterality, unspecified part of lung- Primary Screening mammogram for breast cancer Chronic respiratory failure with hypoxia ([facility]) Pulmonary emphysema, unspecified emphysema type ([facility]) Essential hypertension ([facility]) Unspecified essential hypertension Morbid obesity with BMI of 40.0-44.9, adult ([facility]) Hospital discharge follow-up- Primary Other follow-up examination Chronic respiratory failure with hypoxia ([facility]) Severe persistent asthma without complication ([facility]/HCC) Severe persistent asthma with acute exacerbation ([facility]/HCC)- Primary Severe persistent asthma with exacerbation ([facility]/HCC)- Primary Unspecified asthma, with exacerbation Hospital discharge follow-up- Primary Other follow-up examination Chronic respiratory failure with hypoxia (CMS/HCC)- Primary Hospital discharge follow-up Other follow-up examination Benign essential HTN (CMS/HCC) Chronic heart failure with preserved ejection fraction (CMS/HCC) Severe persistent asthma without complication (CMS/HCC) Moderate mixed hyperlipidemia not requiring statin therapy (CMS/HCC) Morbid obesity with BMI of 40.0-44.9, adult ([facility]) Opioid use Chronic, continuous use of opioids Chronic back pain greater than 3 months duration Urge incontinence- Primary Morbid obesity with BMI of 40.0-44.9, adult ([facility]) 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 Stage 3a chronic kidney disease (HCC) (CMS/HCC) Chronic respiratory failure with hypoxia (CMS/HCC) documented in this encounter [facility] HealthcareEvaluation note* Diagnosis Moderate persistent asthma with exacerbation (CMS/HCC)- Primary Unspecified asthma, with exacerbation Non-recurrent acute suppurative otitis media of both ears without spontaneous rupture of tympanic membranes Colorectal cancer ([facility]/HCC) Malignant neoplasm of colon, unspecified site Chronic heart failure with preserved ejection fraction (CMS/HCC) Pulmonary emphysema, unspecified emphysema type (CMS/HCC) Moderate episode of recurrent major depressive disorder (CMS/HCC)- Primary Moderate persistent asthma with exacerbation ([facility]/HCC) Unspecified asthma, with exacerbation Medicare annual wellness visit, subsequent Severe persistent asthma with acute exacerbation ([facility]/HCC)- Primary Hospital discharge follow-up Other follow-up [...] Morbid obesity with BMI of 40.0-44.9, adult ([facility]) Hospital discharge follow-up- Primary Other [...] Morbid obesity with BMI of 40.0-44.9, adult ([facility]) 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 Stage 3a chronic kidney disease (HCC) ([facility]/HCC) Chronic respiratory failure with hypoxia (CMS/HCC) Neoplasm of unspecified behavior of bone, soft tissue, and skin- Primary documented in this encounter [facility] HealthcareEvaluation note* Diagnosis Moderate persistent asthma with exacerbation (CMS/HCC)- Primary Unspecified asthma, with exacerbation Non-recurrent acute suppurative otitis media of both ears without spontaneous rupture of tympanic membranes Colorectal cancer ([facility]/HCC) Malignant neoplasm of colon, unspecified site Chronic heart failure with preserved ejection fraction (CMS/HCC) Pulmonary emphysema, unspecified emphysema type (CMS/HCC) Moderate episode of recurrent major depressive disorder (CMS/HCC)- Primary Moderate persistent asthma with exacerbation (CMS/HCC) Unspecified asthma, with exacerbation Medicare annual wellness visit, subsequent Severe persistent asthma with acute exacerbation ([facility]/HCC)- Primary Hospital discharge follow-up Other follow-up [...] Morbid obesity with BMI of 40.0-44.9, adult (CMS/[facility]) 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 Stage 3a chronic kidney disease (HCC) ([facility]/HCC) Chronic respiratory failure with hypoxia (CMS/HCC) [...] (CMS/HCC)- Primary Moderate persistent asthma with exacerbation ([facility]/HCC) Unspecified asthma, with exacerbation Medicare annual [...] Morbid obesity with BMI of 40.0-44.9, adult ([facility]) Opioid use Chronic, continuous use of opioids Chronic back pain greater than 3 months duration Urge incontinence- Primary Morbid obesity with BMI of 40.0-44.9, adult ([facility]) Neoplasm of uncertain behavior of [...] Morbid obesity with BMI of 40.0-44.9, adult (CMS/[facility]) documented in this encounter [facility] HealthcareEvaluation note* [...] (CMS/HCC)- Primary Moderate persistent asthma with exacerbation ([facility]/HCC) Unspecified asthma, with exacerbation Medicare annual wellness visit, subsequent Severe persistent asthma with acute exacerbation ([facility]/HCC)- Primary Hospital discharge follow-up Other follow-up examination Severe persistent asthma without complication (CMS/HCC)- Primary Essential hypertension ([facility]/HCC) Unspecified essential hypertension JEANNE (acute kidney injury) ([facility]) Leukocytosis, unspecified type Chronic respiratory failure with hypoxia ([facility]) Chronic bilateral low back pain without sciatica- Primary Vitamin D deficiency Chronic bilateral low back pain without sciatica- Primary Pneumonia due to infectious organism, unspecified laterality, unspecified part of lung- Primary Screening mammogram for breast cancer Chronic respiratory failure with hypoxia ([facility]) Pulmonary emphysema, unspecified emphysema type ([facility]) Essential hypertension ([facility]) Unspecified essential hypertension Morbid obesity with BMI of 40.0-44.9, adult ([facility]) Hospital discharge follow-up- Primary Other follow-up examination Chronic respiratory failure with hypoxia ([facility]/HCC) Severe persistent asthma without complication ([facility]) Severe persistent asthma with acute exacerbation ([facility]/HCC)- Primary Severe persistent asthma with exacerbation ([facility]/HCC)- Primary Unspecified asthma, with exacerbation Hospital discharge follow-up- Primary Other follow-up examination Chronic respiratory failure with hypoxia ([facility])- Primary Hospital discharge follow-up Other follow-up examination Benign essential HTN ([facility]) Chronic heart failure with preserved ejection fraction ([facility]/HCC) Severe persistent asthma without complication ([facility]/HCC) Moderate mixed hyperlipidemia not requiring statin therapy ([facility]) Morbid obesity with BMI of 40.0-44.9, adult ([facility]) Opioid use Chronic, continuous use of opioids Chronic back pain greater than 3 months duration Urge incontinence- Primary Morbid obesity with BMI of 40.0-44.9, adult ([facility]) 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 Stage 3a chronic kidney disease (HCC) ([facility]) Chronic respiratory failure with hypoxia ([facility]) Moderate episode of recurrent major depressive disorder ([facility]) Restless leg syndrome Restless legs syndrome (RLS) documented in this encounter [facility] HealthcareEvaluation note* Diagnosis Moderate persistent asthma with exacerbation ([facility]/HCC)- Primary Unspecified asthma, with exacerbation Non-recurrent [...] Morbid obesity with BMI of 40.0-44.9, adult ([facility]) Hospital discharge follow-up- Primary Other [...] Morbid obesity with BMI of 40.0-44.9, adult ([facility]) Opioid use Chronic, continuous use of opioids Chronic back pain greater than 3 months duration Urge incontinence- Primary Morbid obesity with BMI of 40.0-44.9, adult ([facility]/HCC) 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 Stage 3a chronic kidney disease (HCC) (CMS/HCC) Chronic respiratory failure with hypoxia ([facility]/HCC) Chronic obstructive pulmonary disease with acute lower respiratory infection ([facility]/HCC)- Primary Primary HSV infection of mouth [...] Unspecified essential hypertension JEANNE (acute kidney injury) (CMS/[facility]) Leukocytosis, unspecified type Chronic respiratory failure with hypoxia (CMS/HCC) Chronic bilateral low back pain without sciatica- Primary Vitamin D deficiency Chronic bilateral low back pain without sciatica- Primary Pneumonia due to infectious organism, unspecified laterality, unspecified part of lung- Primary Screening mammogram for breast cancer Chronic respiratory failure with hypoxia (CMS/HCC) Pulmonary emphysema, unspecified emphysema type (CMS/HCC) Essential hypertension ([facility]/HCC) Unspecified essential hypertension Morbid obesity with BMI of 40.0-44.9, adult ([facility]) Hospital discharge follow-up- Primary Other follow-up examination Chronic respiratory failure with hypoxia (CMS/HCC) Severe persistent asthma without complication (CMS/HCC) Severe persistent asthma with acute exacerbation (CMS/HCC)- Primary Severe persistent asthma with exacerbation ([facility]/HCC)- Primary Unspecified asthma, with exacerbation Hospital discharge follow-up- Primary Other follow-up examination Chronic respiratory failure with hypoxia (CMS/HCC)- Primary Hospital discharge follow-up Other follow-up examination Benign essential HTN (CMS/HCC) Chronic heart failure with preserved ejection fraction (CMS/HCC) Severe persistent asthma without complication (CMS/HCC) Moderate mixed hyperlipidemia not requiring statin therapy ([facility]/HCC) Morbid obesity with BMI of 40.0-44.9, adult ([facility]) Opioid use Chronic, continuous use of opioids Chronic back pain greater than 3 months duration Urge incontinence- Primary Morbid obesity with BMI of 40.0-44.9, adult ([facility]) 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9, adult ([facility]) Hospital discharge follow-up- Primary Other follow-up examination Chronic respiratory failure with hypoxia (CMS/HCC) Severe persistent asthma without complication (CMS/HCC) Severe persistent asthma with acute exacerbation (CMS/HCC)- Primary Severe persistent asthma with exacerbation ([facility]/HCC)- Primary Unspecified asthma, with exacerbation Hospital discharge follow-up- Primary Other follow-up examination Chronic respiratory failure with hypoxia (CMS/HCC)- Primary Hospital discharge follow-up Other follow-up examination Benign essential HTN (CMS/HCC) Chronic heart failure with preserved ejection fraction (CMS/HCC) Severe persistent asthma without complication (CMS/HCC) Moderate mixed hyperlipidemia not requiring statin therapy ([facility]/HCC) Morbid obesity with BMI of 40.0-44.9, adult ([facility]) Opioid use Chronic, continuous use of opioids Chronic back pain greater than 3 months duration Urge incontinence- Primary Morbid obesity with BMI of 40.0-44.9, adult ([facility]) 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 Stage 3a chronic kidney disease (HCC) ([facility]/HCC) Chronic respiratory failure with hypoxia ([facility]) Chronic obstructive pulmonary disease with acute lower respiratory infection ([facility])- Primary Primary HSV infection of mouth Pulmonary emphysema, unspecified emphysema type ([facility]/HCC)- Primary Gastroesophageal reflux disease without esophagitis Esophageal reflux documented in this encounter [facility] HealthcareEvaluation note* Diagnosis Moderate persistent asthma with exacerbation ([facility]/HCC)- Primary Unspecified asthma, with exacerbation Non-recurrent acute suppurative otitis media of both ears without spontaneous rupture of tympanic membranes Colorectal cancer ([facility]) Malignant neoplasm of colon, unspecified site Chronic heart failure with preserved ejection fraction ([facility]) Pulmonary emphysema, unspecified emphysema type ([facility]/HCC) Moderate episode of recurrent major depressive disorder ([facility])- Primary Moderate persistent asthma with exacerbation ([facility]) Unspecified asthma, with exacerbation Medicare annual wellness visit, subsequent Severe persistent asthma with acute exacerbation ([facility]/HCC)- Primary Hospital discharge follow-up Other follow-up examination Severe persistent asthma without complication (CMS/HCC)- Primary Essential hypertension ([facility]/HCC) Unspecified essential hypertension JEANNE (acute kidney injury) ([facility]) Leukocytosis, unspecified type Chronic respiratory failure with hypoxia (CMS/HCC) Chronic bilateral low back pain without sciatica- Primary Vitamin D deficiency Chronic bilateral low back pain without sciatica- Primary Pneumonia due to infectious organism, unspecified laterality, unspecified part of lung- Primary Screening mammogram for breast cancer Chronic respiratory failure with hypoxia (CMS/HCC) Pulmonary emphysema, unspecified emphysema type ([facility]/HCC) Essential hypertension ([facility]/HCC) Unspecified essential hypertension Morbid obesity with BMI of 40.0-44.9, adult ([facility]) Hospital discharge follow-up- Primary Other follow-up examination Chronic respiratory failure with hypoxia (CMS/HCC) Severe persistent asthma without complication (CMS/HCC) Severe persistent asthma with acute exacerbation (CMS/HCC)- Primary Severe persistent asthma with exacerbation ([facility]/HCC)- Primary Unspecified asthma, with exacerbation Hospital discharge follow-up- Primary Other follow-up examination Chronic respiratory failure with hypoxia (CMS/HCC)- Primary Hospital discharge follow-up Other follow-up examination Benign essential HTN ([facility]) Chronic heart failure with preserved ejection fraction ([facility]) Severe persistent asthma without complication ([facility]) Moderate mixed hyperlipidemia not requiring statin therapy ([facility]) Morbid obesity with BMI of 40.0-44.9, adult ([facility]) Opioid use Chronic, continuous use of opioids Chronic back pain greater than 3 months duration Urge incontinence- Primary Morbid obesity with BMI of 40.0-44.9, adult ([facility]) 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 Stage 3a chronic kidney disease (HCC) ([facility] Chronic respiratory failure with hypoxia ([facility]) Chronic obstructive pulmonary disease with acute lower respiratory infection ([facility])- Primary Primary HSV infection of mouth Pulmonary emphysema, unspecified emphysema type ([facility])- Primary Restless leg syndrome Restless legs syndrome (RLS) documented in this encounter [facility] HealthcareEvaluation note* Diagnosis Moderate persistent asthma with exacerbation ([facility])- Primary Unspecified asthma, with exacerbation Non-recurrent acute suppurative otitis media of both ears without spontaneous rupture of tympanic membranes Colorectal cancer ([facility]) Malignant neoplasm of colon, unspecified site Chronic heart failure with preserved ejection fraction ([facility]) Pulmonary emphysema, unspecified emphysema type ([facility]) Moderate episode of recurrent major depressive disorder ([facility])- Primary Moderate persistent asthma with exacerbation ([facility]) Unspecified asthma, with exacerbation Medicare annual wellness visit, subsequent Severe persistent asthma with acute exacerbation ([facility])- Primary Hospital discharge follow-up Other follow-up examination Severe persistent asthma without complication ([facility])- Primary Essential hypertension ([facility]) Unspecified essential hypertension JEANNE (acute kidney injury) ([facility]) Leukocytosis, unspecified type Chronic respiratory failure with hypoxia ([facility]) Chronic bilateral low back pain without sciatica- Primary Vitamin D deficiency Chronic bilateral low back pain without sciatica- Primary Pneumonia due to infectious organism, unspecified laterality, unspecified part of lung- Primary Screening mammogram for breast cancer Chronic respiratory failure with hypoxia ([facility]) Pulmonary emphysema, unspecified emphysema type ([facility]/HCC) Essential hypertension ([facility]) Unspecified essential hypertension Morbid obesity with BMI of 40.0-44.9, adult ([facility]) Hospital discharge follow-up- Primary Other follow-up examination Chronic respiratory failure with hypoxia (CMS/HCC) Severe persistent asthma without complication (CMS/HCC) Severe persistent asthma with acute exacerbation (CMS/HCC)- Primary Severe persistent asthma with exacerbation ([facility]/HCC)- Primary Unspecified asthma, with exacerbation Hospital discharge follow-up- Primary Other follow-up examination Chronic respiratory failure with hypoxia (CMS/HCC)- Primary Hospital discharge follow-up Other follow-up examination Benign essential HTN ([facility]/HCC) Chronic heart failure with preserved ejection fraction ([facility]/HCC) Severe persistent asthma without complication (CMS/HCC) Moderate mixed hyperlipidemia not requiring statin therapy (CMS/HCC) Morbid obesity with BMI of 40.0-44.9, adult ([facility]) Opioid use Chronic, continuous use of opioids Chronic back pain greater than 3 months duration Urge incontinence- Primary Morbid obesity with BMI of 40.0-44.9, adult ([facility]) 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 Stage 3a chronic kidney disease (HCC) ([facility]) Chronic respiratory failure with hypoxia ([facility]) Chronic obstructive pulmonary disease with acute lower respiratory infection ([facility])- Primary Primary HSV infection of mouth Pulmonary emphysema, unspecified emphysema type ([facility]/HCC)- Primary Nevus lipomatosus cutaneus superficialis- Primary Lipoma of other skin and subcutaneous tissue Squamous cell carcinoma of skin of chest documented in this encounter [facility] HealthcareEvaluation note* Diagnosis Moderate persistent asthma with exacerbation ([facility]/HCC)- Primary Unspecified asthma, with exacerbation Non-recurrent acute suppurative otitis media of both ears without spontaneous rupture of tympanic membranes Colorectal cancer ([facility] [facility]) Malignant neoplasm of colon, unspecified site Chronic heart failure with preserved ejection fraction ([facility]/HCC) Pulmonary emphysema, unspecified emphysema type ([facility]/HCC) Moderate episode of recurrent major depressive disorder ([facility]/HCC)- Primary Moderate persistent asthma with exacerbation ([facility]/HCC) Unspecified asthma, with exacerbation Medicare annual wellness visit, subsequent Severe persistent asthma with acute exacerbation ([facility]/HCC)- Primary Hospital discharge follow-up Other follow-up examination Severe persistent asthma without complication ([facility]/HCC)- Primary Essential hypertension ([facility]/HCC) Unspecified essential hypertension JEANNE (acute kidney injury) ([facility]) Leukocytosis, unspecified type Chronic respiratory failure with hypoxia ([facility]/HCC) Chronic bilateral low back pain without sciatica- Primary Vitamin D deficiency Chronic bilateral low back pain without sciatica- Primary Pneumonia due to infectious organism, unspecified laterality, unspecified part of lung- Primary Screening mammogram for breast cancer Chronic respiratory failure with hypoxia (CMS/HCC) Pulmonary emphysema, unspecified emphysema type (CMS/HCC) Essential hypertension (CMS/HCC) Unspecified essential hypertension Morbid obesity with BMI of 40.0-44.9, adult ([facility]) Hospital discharge follow-up- Primary Other [...] Moderate mixed hyperlipidemia not requiring statin therapy ([facility]) Morbid obesity with BMI of 40.0-44.9, adult ([facility]) Opioid use Chronic, continuous use of opioids Chronic back pain greater than 3 months duration Urge incontinence- Primary Morbid obesity with BMI of 40.0-44.9, adult ([facility]) 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 Stage 3a chronic kidney disease (HCC) ([facility]) Chronic respiratory failure with hypoxia ([facility]/HCC) Chronic obstructive pulmonary disease with acute lower respiratory infection ([facility]/HCC)- Primary Primary HSV infection of mouth Pulmonary emphysema, unspecified emphysema type ([facility]/HCC)- Primary Moderate episode of recurrent major depressive disorder ([facility]) Acute pain of right knee- Primary History of total right knee replacement documented in this encounter [facility] HealthcareEvaluation note* Diagnosis Moderate persistent [...] Morbid obesity with BMI of 40.0-44.9, adult ([facility]) Hospital discharge follow-up- Primary Other follow-up examination Chronic respiratory failure with hypoxia (CMS/HCC) Severe persistent asthma without complication (CMS/HCC) Severe persistent asthma with acute exacerbation (CMS/HCC)- Primary Severe persistent asthma with exacerbation ([facility]/HCC)- Primary Unspecified asthma, with exacerbation Hospital discharge follow-up- Primary Other follow-up examination Chronic respiratory failure with hypoxia (CMS/HCC)- Primary Hospital discharge follow-up Other follow-up examination Benign essential HTN (CMS/HCC) Chronic heart failure with preserved ejection fraction (CMS/HCC) Severe persistent asthma without complication (CMS/HCC) Moderate mixed hyperlipidemia not requiring statin therapy ([facility]/HCC) Morbid obesity with BMI of 40.0-44.9, adult ([facility]) Opioid use Chronic, continuous use of opioids Chronic back pain greater than 3 months duration Urge incontinence- Primary Morbid obesity with BMI of 40.0-44.9, adult ([facility]) 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 Stage 3a chronic kidney disease (HCC) ([facility]/HCC) Chronic respiratory failure with hypoxia (CMS/HCC) Chronic obstructive pulmonary disease with acute lower respiratory infection ([facility]/HCC)- Primary Primary HSV infection of mouth Pulmonary emphysema, unspecified emphysema type (CMS/HCC)- Primary Acute pain of right knee- Primary History of total right knee replacement Right hip pain Pain in joint, pelvic region and thigh Arthritis of right hip documented in this encounter [facility] HealthcareEvaluation note* Diagnosis Moderate persistent asthma [...] Morbid obesity with BMI of 40.0-44.9, adult ([facility]) Hospital discharge follow-up- Primary Other [...] Morbid obesity with BMI of 40.0-44.9, adult ([facility]) Opioid use Chronic, continuous use of opioids Chronic back pain greater than 3 months duration Urge incontinence- Primary Morbid obesity with BMI of 40.0-44.9, adult ([facility]) 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 Stage 3a chronic kidney disease (HCC) (CMS/HCC) Chronic respiratory failure with hypoxia (CMS/HCC) Chronic obstructive pulmonary disease with acute lower respiratory infection ([facility]/HCC)- Primary Primary HSV infection of mouth Pulmonary emphysema, unspecified emphysema type (CMS/HCC)- Primary Seborrheic keratosis- Primary History of SCC (squamous cell carcinoma) of skin Personal history of other malignant neoplasm of skin Lentigines documented in this encounter [facility] HealthcareEvaluation note* Diagnosis Moderate episode of [...] Morbid obesity with BMI of 40.0-44.9, adult ([facility]) Hospital discharge follow-up- Primary Other [...] Morbid obesity with BMI of 40.0-44.9, adult ([facility]/HCC) Opioid use Chronic, continuous use of opioids Chronic back pain greater than 3 months duration Urge incontinence- Primary Morbid obesity with BMI of 40.0-44.9, adult ([facility]/HCC) 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 Stage 3a chronic kidney disease (HCC) (CMS/HCC) Chronic respiratory failure with hypoxia (CMS/HCC) Chronic obstructive pulmonary disease with acute lower respiratory infection (CMS/HCC)- Primary Primary HSV infection of mouth Pulmonary emphysema, unspecified emphysema type (CMS/HCC)- Primary Flu-like symptoms- Primary Morbid (severe) obesity due to excess calories (CMS/HCC) Body mass index (BMI) 40.0-44.9, adult ([facility]/HCC) Pulmonary emphysema, unspecified emphysema type (CMS/HCC) Chronic respiratory failure with hypoxia (CMS/HCC) Essential hypertension (CMS/HCC) Unspecified essential hypertension documented in this encounter [facility] HealthcareEvaluation note* Diagnosis Moderate episode of recurrent [...] Morbid obesity with BMI of 40.0-44.9, adult ([facility]) Hospital discharge follow-up- Primary Other [...] Morbid obesity with BMI of 40.0-44.9, adult ([facility]/HCC) Opioid use Chronic, continuous use of opioids Chronic back pain greater than 3 months duration Urge incontinence- Primary Morbid obesity with BMI of 40.0-44.9, adult ([facility]) 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 Stage 3a chronic kidney disease (HCC) (CMS/HCC) Chronic respiratory failure with hypoxia (CMS/HCC) Chronic obstructive pulmonary disease with acute lower respiratory infection (CMS/HCC)- Primary Primary HSV infection of mouth Pulmonary emphysema, unspecified emphysema type (CMS/HCC)- Primary Flu-like symptoms- Primary Morbid (severe) obesity due to excess calories ([facility]) Body mass index (BMI) 40.0-44.9, adult ([facility]) Pulmonary emphysema, unspecified emphysema type (CMS/HCC) Chronic respiratory failure with hypoxia (CMS/HCC) Essential hypertension ([facility]/HCC) Unspecified essential hypertension Pneumonia due to infectious organism, unspecified laterality, unspecified part of lung- Primary documented in this encounter [facility] HealthcareEvaluation note* Diagnosis Moderate episode of recurrent major depressive disorder (CMS/HCC)- Primary Moderate persistent asthma with exacerbation ([facility]) Unspecified asthma, with exacerbation Medicare annual wellness visit, subsequent Severe persistent asthma with acute exacerbation ([facility])- Primary Hospital discharge follow-up Other follow-up examination Severe persistent asthma without complication (CMS/HCC)- Primary Essential hypertension (CMS/HCC) Unspecified essential hypertension JEANNE (acute kidney injury) ([facility]) Leukocytosis, unspecified type Chronic respiratory failure with hypoxia (CMS/HCC) Chronic bilateral low back pain without sciatica- Primary Vitamin D deficiency Chronic bilateral low back pain without sciatica- Primary Pneumonia due to infectious organism, unspecified laterality, unspecified part of lung- Primary Screening mammogram for breast cancer Chronic respiratory failure with hypoxia (CMS/HCC) Pulmonary emphysema, unspecified emphysema type (CMS/HCC) Essential hypertension ([facility]/HCC) Unspecified essential hypertension Morbid obesity with BMI of 40.0-44.9, adult ([facility]) Hospital discharge follow-up- Primary Other follow-up examination Chronic respiratory failure with hypoxia (CMS/HCC) Severe persistent asthma without complication (CMS/HCC) Chronic respiratory failure with hypoxia (CMS/HCC)- Primary Hospital discharge follow-up Other follow-up examination Benign essential HTN (CMS/HCC) Chronic heart failure with preserved ejection fraction (CMS/HCC) Severe persistent asthma without complication (CMS/HCC) Moderate mixed hyperlipidemia not requiring statin therapy ([facility]/HCC) Morbid obesity with BMI of 40.0-44.9, adult ([facility]) Opioid use Chronic, continuous use [...] depressive disorder (CMS/HCC) documented in this encounter [facility] HealthcareEvaluation note* Diagnosis Moderate episode of [...] Morbid obesity with BMI of 40.0-44.9, adult ([facility]) Hospital discharge follow-up- Primary Other [...] Moderate episode of recurrent major depressive disorder ([facility]/HCC)- Primary Moderate persistent asthma with exacerbation ([facility]/HCC) Unspecified asthma, with exacerbation Medicare annual wellness visit, subsequent Severe persistent asthma with acute exacerbation ([facility]/HCC)- Primary Hospital discharge follow-up Other follow-up examination Severe persistent asthma without complication (CMS/HCC)- Primary Essential hypertension (CMS/HCC) Unspecified essential hypertension JEANNE (acute kidney injury) ([facility]) Leukocytosis, unspecified type Chronic respiratory failure with hypoxia ([facility]/HCC) Chronic bilateral low back pain without sciatica- Primary Vitamin D deficiency Chronic bilateral low back pain without sciatica- Primary Pneumonia due to infectious organism, unspecified laterality, unspecified part of lung- Primary Screening mammogram for breast cancer Chronic respiratory failure with hypoxia ([facility]) Pulmonary emphysema, unspecified emphysema type ([facility]/HCC) Essential hypertension ([facility]/HCC) Unspecified essential hypertension Morbid obesity with BMI of 40.0-44.9, adult ([facility]) Hospital discharge follow-up- Primary Other follow-up examination Chronic respiratory failure with hypoxia (CMS/HCC) Severe persistent asthma without complication ([facility]/HCC) Chronic respiratory failure with hypoxia ([facility]/HCC)- Primary Hospital discharge follow-up Other follow-up examination Benign essential HTN ([facility]/HCC) Chronic heart failure with preserved ejection fraction ([facility]/HCC) Severe persistent asthma without complication ([facility]/HCC) Moderate mixed hyperlipidemia not requiring statin therapy ([facility]) Morbid obesity with BMI of 40.0-44.9, adult ([facility]) Opioid use Chronic, continuous use of opioids Chronic back pain greater than 3 months duration Urge incontinence- Primary Morbid obesity with BMI of 40.0-44.9, adult ([facility]) 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 Stage 3a chronic kidney disease (HCC) ([facility]) Chronic respiratory failure with hypoxia ([facility]/HCC) Chronic obstructive pulmonary disease with acute lower respiratory infection ([facility]/HCC)- Primary Primary HSV infection of mouth Pulmonary emphysema, unspecified emphysema type ([facility]/HCC)- Primary Flu-like symptoms- Primary Morbid (severe) obesity due to excess calories ([facility]) Body mass index (BMI) 40.0-44.9, adult ([facility]/HCC) Pulmonary emphysema, unspecified emphysema type (CMS/HCC) [...] esophagitis Esophageal reflux documented in this encounter [facility] HealthcareEvaluation note* Diagnosis Moderate episode of recurrent major depressive disorder (CMS/HCC)- Primary Moderate persistent asthma with exacerbation ([facility]/HCC) Unspecified asthma, with exacerbation Medicare annual wellness visit, subsequent Severe persistent asthma with acute exacerbation ([facility]/HCC)- Primary Hospital discharge follow-up Other follow-up examination Severe persistent asthma without complication (CMS/HCC)- Primary Essential hypertension (CMS/HCC) Unspecified essential hypertension JEANNE (acute kidney injury) ([facility]) Leukocytosis, unspecified type Chronic respiratory [...] Morbid obesity with BMI of 40.0-44.9, adult ([facility]) Hospital discharge follow-up- Primary Other follow-up examination Chronic respiratory failure with hypoxia (CMS/HCC) Severe persistent asthma without complication (CMS/HCC) Chronic respiratory failure with hypoxia (CMS/HCC)- Primary Hospital discharge follow-up Other follow-up examination Benign essential HTN ([facility]/HCC) Chronic heart failure with preserved ejection fraction ([facility]/HCC) Severe persistent asthma without complication ([facility]/HCC) Moderate mixed hyperlipidemia not requiring statin therapy ([facility]) Morbid obesity with BMI of 40.0-44.9, adult ([facility]) Opioid use Chronic, continuous use of opioids Chronic back pain greater than 3 months duration Urge incontinence- Primary Morbid obesity with BMI of 40.0-44.9, adult ([facility]) 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 Stage 3a chronic kidney disease (HCC) ([facility]) Chronic respiratory failure with hypoxia ([facility]) Chronic obstructive pulmonary disease with acute lower respiratory infection ([facility])- Primary Primary HSV infection of mouth Pulmonary emphysema, unspecified emphysema type ([facility])- Primary Flu-like symptoms- Primary Morbid (severe) obesity due to excess calories ([facility]) Body mass index (BMI) 40.0-44.9, adult ([facility]) Pulmonary emphysema, unspecified emphysema type ([facility]) Chronic respiratory failure with hypoxia ([facility]) Essential hypertension ([facility]) Unspecified essential hypertension Pneumonia due to infectious organism, unspecified laterality, unspecified part of lung- Primary Pneumonia due to infectious organism, unspecified laterality, unspecified part of lung- Primary Chronic respiratory failure with hypoxia ([facility]/HCC) Severe persistent asthma, uncomplicated ([facility]) Chronic heart failure with preserved ejection fraction ([facility]) Essential hypertension ([facility]) Unspecified essential hypertension Other secondary pulmonary hypertension Chronic kidney disease, stage 3a (HCC) ([facility]) Morbid (severe) obesity due to excess calories ([facility]) Screening mammogram for breast cancer Moderate episode of recurrent major depressive disorder ([facility]) Edema of both lower extremities- Primary Spinal stenosis, lumbar region without neurogenic claudication Chronic heart failure with preserved ejection fraction ([facility]/HCC) Chronic respiratory failure with hypoxia ([facility]/HCC) Severe persistent asthma, uncomplicated ([facility]/HCC) Gastroesophageal reflux disease, unspecified whether esophagitis present Morbid (severe) obesity due to excess calories ([facility]/HCC) RLS (restless legs syndrome) Restless legs syndrome (RLS) Candidiasis Moderate episode of recurrent major depressive disorder ([facility]/HCC)- Primary Pulmonary emphysema, unspecified emphysema type ([facility]/HCC) Chronic respiratory failure with hypoxia ([facility]/HCC) Morbid (severe) obesity due to excess calories ([facility]) Restless leg syndrome Restless legs syndrome (RLS) documented in this encounter [facility] HealthcareEvaluation note* Diagnosis Moderate episode of recurrent [...] Morbid obesity with BMI of 40.0-44.9, adult ([facility]) Hospital discharge follow-up- Primary Other [...] Morbid obesity with BMI of 40.0-44.9, adult ([facility]) Opioid use Chronic, continuous use of opioids Chronic back pain greater than 3 months duration Urge incontinence- Primary Morbid obesity with BMI of 40.0-44.9, adult ([facility]) 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 Stage 3a chronic kidney disease ([facility]) Chronic respiratory failure with hypoxia (HCC) Chronic obstructive pulmonary disease with acute lower respiratory infection (HCC)- Primary Primary HSV infection of mouth Pulmonary emphysema, unspecified emphysema type (HCC)- Primary Flu-like symptoms- Primary Morbid (severe) obesity due to excess calories ([facility]) Body mass index (BMI) 40.0-44.9, adult ([facility]) Pulmonary emphysema, unspecified emphysema type (HCC) Chronic [...] hypertension (HCC) Chronic kidney disease, stage 3a ([facility]) Morbid (severe) obesity due to excess calories ([facility]) Screening mammogram for breast cancer Moderate episode of recurrent major depressive disorder (HCC) Edema of both lower extremities- Primary Spinal stenosis, lumbar region without neurogenic claudication Chronic heart failure with preserved ejection fraction (HCC) Chronic respiratory failure with hypoxia (HCC) Severe persistent asthma, uncomplicated (HCC) Gastroesophageal reflux disease, unspecified whether esophagitis present Morbid (severe) obesity due to excess calories ([facility]) RLS (restless legs syndrome) Restless legs syndrome (RLS) Candidiasis Moderate episode of recurrent major depressive disorder (HCC)- Primary Pulmonary emphysema, unspecified emphysema type (HCC) Chronic respiratory failure with hypoxia (HCC) Morbid (severe) obesity due to excess calories ([facility]) Restless leg syndrome Restless legs syndrome (RLS) Moderate episode of recurrent major depressive disorder (HCC)- Primary documented in this encounter [facility] HealthcareEvaluation note* Diagnosis Moderate episode of [...] Morbid obesity with BMI of 40.0-44.9, adult ([facility]) Hospital discharge follow-up- Primary Other [...] Morbid obesity with BMI of 40.0-44.9, adult ([facility]) Opioid use Chronic, continuous use of opioids Chronic back pain greater than 3 months duration Urge incontinence- Primary Morbid obesity with BMI of 40.0-44.9, adult ([facility]) 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 Stage 3a chronic kidney disease ([facility]) Chronic respiratory failure with hypoxia ([facility]) Chronic obstructive pulmonary disease with acute lower respiratory infection ([facility])- Primary Primary HSV infection of mouth Pulmonary emphysema, unspecified emphysema type ([facility])- Primary Flu-like symptoms- Primary Morbid (severe) obesity due to excess calories ([facility]) Body mass index (BMI) 40.0-44.9, adult ([facility]) Pulmonary emphysema, unspecified emphysema type ([facility]) Chronic respiratory failure with hypoxia ([facility]) Essential hypertension Unspecified essential hypertension Pneumonia due to infectious organism, unspecified laterality, unspecified part of lung- Primary Pneumonia due to infectious organism, unspecified laterality, unspecified part of lung- Primary Chronic respiratory failure with hypoxia ([facility]) Severe persistent asthma, uncomplicated ([facility]) Chronic heart failure with preserved ejection fraction (HCC) Essential hypertension Unspecified essential hypertension Other secondary pulmonary hypertension ([facility]) Chronic kidney disease, stage 3a ([facility]) Morbid (severe) obesity due to excess calories ([facility]) Screening mammogram for breast cancer Moderate episode of recurrent major depressive disorder ([facility]) Edema of both lower extremities- Primary Spinal stenosis, lumbar region without neurogenic claudication Chronic heart failure with preserved ejection fraction (HCC) Chronic respiratory failure with hypoxia (HCC) Severe persistent asthma, uncomplicated (HCC) Gastroesophageal reflux disease, unspecified whether esophagitis present Morbid (severe) obesity due to excess calories ([facility]) RLS (restless legs syndrome) Restless legs syndrome (RLS) Candidiasis Moderate episode of recurrent major depressive disorder (HCC)- Primary Pulmonary emphysema, unspecified emphysema type (HCC) Chronic respiratory failure with hypoxia (HCC) Morbid (severe) obesity due to excess calories ([facility]) Restless leg syndrome Restless legs syndrome (RLS) [...] Morbid obesity with BMI of 40.0-44.9, adult ([facility]) Hospital discharge follow-up- Primary Other follow-up examination Chronic respiratory failure with hypoxia (HCC) Severe persistent asthma without complication (HCC) Chronic respiratory failure with hypoxia (HCC)- Primary Hospital discharge follow-up Other follow-up examination Benign essential HTN Chronic heart failure with preserved ejection fraction (HCC) Severe persistent asthma without complication (HCC) Moderate mixed hyperlipidemia not requiring statin therapy Morbid obesity with BMI of 40.0-44.9, adult ([facility]) Opioid use Chronic, continuous use of opioids Chronic back pain greater than 3 months duration Urge incontinence- Primary Morbid obesity with BMI of 40.0-44.9, adult ([facility]) 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 Stage 3a chronic kidney disease ([facility]) Chronic respiratory failure with hypoxia ([facility]) Chronic obstructive pulmonary disease with acute lower respiratory infection (HCC)- Primary Primary HSV infection of mouth Pulmonary emphysema, unspecified emphysema type (HCC)- Primary Flu-like symptoms- Primary Morbid (severe) obesity due to excess calories ([facility]) Body mass index (BMI) 40.0-44.9, adult ([facility]) Pulmonary emphysema, unspecified emphysema type (HCC) Chronic [...] hypertension (HCC) Chronic kidney disease, stage 3a ([facility]) Morbid (severe) obesity due to excess calories ([facility]) Screening mammogram for breast cancer Moderate episode of recurrent major depressive disorder ([facility]) Edema of both lower extremities- Primary Spinal stenosis, lumbar region without neurogenic claudication Chronic heart failure with preserved ejection fraction (HCC) Chronic respiratory failure with hypoxia (HCC) Severe persistent asthma, uncomplicated (HCC) Gastroesophageal reflux disease, unspecified whether esophagitis present Morbid (severe) obesity due to excess calories ([facility]) RLS (restless legs syndrome) Restless legs syndrome (RLS) Candidiasis Moderate episode of recurrent major depressive disorder (HCC)- Primary Pulmonary emphysema, unspecified emphysema type (HCC) Chronic respiratory failure with hypoxia (HCC) Morbid (severe) obesity due to excess calories ([facility]) Restless leg syndrome Restless legs syndrome (RLS) Restless leg syndrome Restless legs syndrome (RLS) documented in this encounter [facility] HealthcareEvaluation note* Diagnosis Moderate episode of recurrent [...] Morbid obesity with BMI of 40.0-44.9, adult ([facility]) Hospital discharge follow-up- Primary Other [...] Morbid obesity with BMI of 40.0-44.9, adult ([facility]) Opioid use Chronic, continuous use of opioids Chronic back pain greater than 3 months duration Urge incontinence- Primary Morbid obesity with BMI of 40.0-44.9, adult ([facility]) 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 Stage 3a chronic kidney disease ([facility]) Chronic respiratory failure with hypoxia (HCC) Chronic obstructive pulmonary disease with acute lower respiratory infection (HCC)- Primary Primary HSV infection of mouth Pulmonary emphysema, unspecified emphysema type (HCC)- Primary Flu-like symptoms- Primary Morbid (severe) obesity due to excess calories ([facility]) Body mass index (BMI) 40.0-44.9, adult ([facility]) Pulmonary emphysema, unspecified emphysema type (HCC) Chronic [...] hypertension (HCC) Chronic kidney disease, stage 3a ([facility]) Morbid (severe) obesity due to excess calories ([facility]) Screening mammogram for breast cancer Moderate episode of recurrent major depressive disorder (HCC) Edema of both lower extremities- Primary Spinal stenosis, lumbar region without neurogenic claudication Chronic heart failure with preserved ejection fraction (HCC) Chronic respiratory failure with hypoxia (HCC) Severe persistent asthma, uncomplicated (HCC) Gastroesophageal reflux disease, unspecified whether esophagitis present Morbid (severe) obesity due to excess calories ([facility]) RLS (restless legs syndrome) Restless legs syndrome (RLS) Candidiasis Moderate episode of recurrent major depressive disorder (HCC)- Primary Pulmonary emphysema, unspecified emphysema type (HCC) Chronic respiratory failure with hypoxia (HCC) Morbid (severe) obesity due to excess calories ([facility]) Restless leg syndrome Restless legs syndrome (RLS) Chronic heart failure with preserved ejection fraction (HCC)- Primary Edema of both lower extremities documented in this encounter [facility] HealthcareEvaluation note* Diagnosis Moderate episode of recurrent [...] Morbid obesity with BMI of 40.0-44.9, adult ([facility]) Hospital discharge follow-up- Primary Other follow-up examination Chronic respiratory failure with hypoxia (HCC) Severe persistent asthma without complication (HCC) Chronic respiratory failure with hypoxia (HCC)- Primary Hospital discharge follow-up Other follow-up examination Benign essential HTN Chronic heart failure with preserved ejection fraction (HCC) Severe persistent asthma without complication (HCC) Moderate mixed hyperlipidemia not requiring statin therapy Morbid obesity with BMI of 40.0-44.9, adult ([facility]) Opioid use Chronic, continuous use of opioids Chronic back pain greater than 3 months duration Urge incontinence- Primary Morbid obesity with BMI of 40.0-44.9, adult ([facility]) 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 Stage 3a chronic kidney disease ([facility]) Chronic respiratory failure with hypoxia ([facility]) Chronic obstructive pulmonary disease with acute lower respiratory infection ([facility])- Primary Primary HSV infection of mouth Pulmonary emphysema, unspecified emphysema type ([facility])- Primary Flu-like symptoms- Primary Morbid (severe) obesity due to excess calories ([facility]) Body mass index (BMI) 40.0-44.9, adult ([facility]) Pulmonary emphysema, unspecified emphysema type ([facility]) Chronic respiratory failure with hypoxia ([facility]) Essential hypertension Unspecified essential hypertension Pneumonia due to infectious organism, unspecified laterality, unspecified part of lung- Primary Pneumonia due to infectious organism, unspecified laterality, unspecified part of lung- Primary Chronic respiratory failure with hypoxia ([facility]) Severe persistent asthma, uncomplicated (HCC) Chronic heart failure with preserved ejection fraction (HCC) Essential hypertension Unspecified essential hypertension Other secondary pulmonary hypertension (HCC) Chronic kidney disease, stage 3a ([facility]) Morbid (severe) obesity due to excess calories ([facility]) Screening mammogram for breast cancer Moderate episode of recurrent major depressive disorder ([facility]) Edema of both lower extremities- Primary Spinal stenosis, lumbar region without neurogenic claudication Chronic heart failure with preserved ejection fraction (HCC) Chronic respiratory failure with hypoxia (HCC) Severe persistent asthma, uncomplicated (HCC) Gastroesophageal reflux disease, unspecified whether esophagitis present Morbid (severe) obesity due to excess calories ([facility]) RLS (restless legs syndrome) Restless legs syndrome (RLS) Candidiasis Moderate episode of recurrent major depressive disorder (HCC)- Primary Pulmonary emphysema, unspecified emphysema type (HCC) Chronic respiratory failure with hypoxia (HCC) Morbid (severe) obesity due to excess calories ([facility]) Restless leg syndrome Restless legs syndrome (RLS) Moderate episode of recurrent major depressive disorder (HCC)- Primary Morbid (severe) obesity due to excess calories ([facility]) Candidiasis of breast Skin pustule Unspecified local infection of skin and subcutaneous tissue RLS (restless legs syndrome) Restless legs syndrome (RLS) documented in this encounter [facility] HealthcareEvaluation note* Diagnosis Moderate episode of recurrent [...] Morbid obesity with BMI of 40.0-44.9, adult ([facility]) Hospital discharge follow-up- Primary Other follow-up examination Chronic respiratory failure with hypoxia (HCC) Severe persistent asthma without complication (HCC) Chronic respiratory failure with hypoxia (HCC)- Primary Hospital discharge follow-up Other follow-up examination Benign essential HTN Chronic heart failure with preserved ejection fraction (HCC) Severe persistent asthma without complication (HCC) Moderate mixed hyperlipidemia not requiring statin therapy Morbid obesity with BMI of 40.0-44.9, adult ([facility]) Opioid use Chronic, continuous use of opioids Chronic back pain greater than 3 months duration Urge incontinence- Primary Morbid obesity with BMI of 40.0-44.9, adult ([facility]) 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 Stage 3a chronic kidney disease ([facility]) Chronic respiratory failure with hypoxia (HCC) Chronic obstructive pulmonary disease with acute lower respiratory infection (HCC)- Primary Primary HSV infection of mouth Pulmonary emphysema, unspecified emphysema type (HCC)- Primary Flu-like symptoms- Primary Morbid (severe) obesity due to excess calories ([facility]) Body mass index (BMI) 40.0-44.9, adult ([facility]) Pulmonary emphysema, unspecified emphysema type (HCC) Chronic [...] hypertension (HCC) Chronic kidney disease, stage 3a ([facility]) Morbid (severe) obesity due to excess calories ([facility]) Screening mammogram for breast cancer Moderate episode of recurrent major depressive disorder ([facility]) Edema of both lower extremities- Primary Spinal stenosis, lumbar region without neurogenic claudication Chronic heart failure with preserved ejection fraction (HCC) Chronic respiratory failure with hypoxia (HCC) Severe persistent asthma, uncomplicated ([facility]) Gastroesophageal reflux disease, unspecified whether esophagitis present Morbid (severe) obesity due to excess calories ([facility]) RLS (restless legs syndrome) Restless legs syndrome (RLS) Candidiasis Moderate episode of recurrent major depressive disorder (HCC)- Primary Pulmonary emphysema, unspecified emphysema type (HCC) Chronic respiratory failure with hypoxia (HCC) Morbid (severe) obesity due to excess calories ([facility]) Restless leg syndrome Restless legs syndrome (RLS) Moderate episode of recurrent major depressive disorder (HCC)- Primary Morbid (severe) obesity due to excess calories ([facility]) Candidiasis of breast Skin pustule Unspecified local infection of skin and subcutaneous tissue RLS (restless legs syndrome) Restless legs syndrome (RLS) Skin pustule Unspecified local infection of skin and subcutaneous tissue documented in this encounter [facility] HealthcareEvaluation note* Diagnosis Moderate episode of recurrent [...] Morbid obesity with BMI of 40.0-44.9, adult ([facility] Hospital discharge follow-up- Primary Other follow-up examination Chronic respiratory failure with hypoxia (HCC) Severe persistent asthma without complication (HCC) Chronic respiratory failure with hypoxia (HCC)- Primary Hospital discharge follow-up Other follow-up examination Benign essential HTN Chronic heart failure with preserved ejection fraction (HCC) Severe persistent asthma without complication (HCC) Moderate mixed hyperlipidemia not requiring statin therapy Morbid obesity with BMI of 40.0-44.9, adult ([facility]) Opioid use Chronic, continuous use of opioids Chronic back pain greater than 3 months duration Urge incontinence- Primary Morbid obesity with BMI of 40.0-44.9, adult ([facility]) 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 Stage 3a chronic kidney disease ([facility] Chronic respiratory failure with hypoxia ([facility]) Chronic obstructive pulmonary disease with acute lower respiratory infection ([facility])- Primary Primary HSV infection of mouth Pulmonary emphysema, unspecified emphysema type (HCC)- Primary Flu-like symptoms- Primary Morbid (severe) obesity due to excess calories ([facility]) Body mass index (BMI) 40.0-44.9, adult ([facility]) Pulmonary emphysema, unspecified emphysema type (HCC) Chronic [...] hypertension (HCC) Chronic kidney disease, stage 3a ([facility]) Morbid (severe) obesity due to excess calories ([facility]) Screening mammogram for breast cancer Moderate episode of recurrent major depressive disorder ([facility]) Edema of both lower extremities- Primary Spinal [...] depressive disorder (HCC) documented in this encounter [facility] HealthcareHistory general Narrative - Reported* Type Description [...] IN 08/2019 Hospitalization History HIP REVISION 03/2020 [facility] Other History general Narrative - Reported* Type [...] Hospitalization History COVID X 2 WEEKS 04/2023 [facility] Other Hospital course Narrative No data available for this section [facility] Hospital Discharge instructions Additional Instructions DISCHARGE [...] if you have any problems. -Office number [phone] Work Phone: Hospital Discharge instructions No data available for this section [facility] Progress note No data available for this section [facility] Advance Directives No Advanced Directives Records [...] or prosecute any alcohol or drug abuse patient.[facility] the event this information is protected by the Federal Confidentiality of Alcohol and Drug Abuse Patient Records regulations: The Federal rules restrict any use of the information to criminally investigate or prosecute any alcohol or drug abuse patient.[facility] the event this information is protected by the Federal Confidentiality of Alcohol and Drug Abuse Patient Records regulations: The Federal rules restrict any use of the information to criminally investigate or prosecute any alcohol or drug abuse patient.[facility] the event this information is protected by the Federal Confidentiality of Alcohol and Drug Abuse Patient Records regulations: The Federal rules restrict any use of the information to criminally investigate or prosecute any alcohol or drug abuse patient.[facility] INFORMATION SOURCE (unrecogn ized section and content) DATE CREATED AUTHOR 03/03/2022 [facility] DATE CREATED AUTHOR AUTHOR'S ORGANIZ ATION 04/17/2023 [facility] DATE CREATED AUTHOR AUTHOR'S ORGANIZ ATION 10/20/2024 [facility] DATE CREATED AUTHOR AUTHOR'S ORGANIZ ATION 11/18/2024 [facility] DATE CREATED AUTHOR AUTHOR'S ORGANIZ ATION 01/25/2025 [facility] DATE CREATED AUTHOR AUTHOR'S ORGANIZ ATION 03/26/2025 [place] [facility] DATE CREATED AUTHOR AUTHOR'S ORGANIZ ATION 05/22/2025 [facility] DATE CREATED AUTHOR AUTHOR'S ORGANIZ ATION 06/20/2025 [facility] DATE CREATED AUTHOR AUTHOR'S ORGANIZ ATION 07/05/2025 [facility] REASON FOR VISIT (unrecogniz ed section [...] of uncertain behavior of chest wall Procedures IA OFFICE/OUTPATIENT NEW HIGH MDM Aida Reese, RIKKI [address] [place] [address] Phone: tel: fax: Elena Martinez, [employer] 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 [address] [place] [address] Phone: tel: fax: Referral ID Status Reason Start Date Expiration Date V isits Requested Visits Authorized [id number] Closed Specialty Services Required 10/07/2024 04/05/2025 1 [...] March 14, 2024 End: March 14, 2024 Filter Plant Operator Relationship Specialty Start Date End Date Tapan Zazueta MD [address] [place] [phone] PCP - General Family Medicine 06/10/24 Ariella Mathis DO [address] [place] [address] Referring Physician Neurology 01/02/24 Aida Reese NP [address] [place] [address] Nurse Practitioner Family Medicine 06/10/24 Filter Plant Operator Relationship Specialty Start Date End Date Tapan Zazueta MD [address] [place] [phone] PCP - General Family Medicine 06/10/24 Ariella Mathis DO [address] [place], [place] [id number] Referring Physician Neurology 01/02/24 Aida Reese NP [address] [place] [address] Nurse Practitioner Family Medicine 06/10/24 Filter Plant Operator Relationship Specialty Start Date End Date Tapan Zazueta MD [address] [place] [address] PCP - General Family Medicine 06/10/24 Ariella Mathis DO [address], [place] [address] Referring Physician Neurology 01/02/24 Aida Reese NP [address] [place] [address] Nurse Practitioner Family Medicine 06/10/24 Filter Plant Operator Relationship Specialty Start Date End Date Tapan Zazueta MD [address] [place] [address] PCP - General Family Medicine 06/10/24 Ariella Mathis DO [address] [place], [place] [address] Referring Physician Neurology 01/02/24 Aida Reese NP [address] [place] [address] Nurse Practitioner Family Medicine 06/10/24 Filter Plant Operator Relationship Specialty Start Date End Date Tapan Zazueta MD [address] [place] [address] PCP - General Family Medicine 06/10/24 Ariella Mathis DO [address], [place] [id number] Referring Physician Neurology 01/02/24 Aida Reese NP [address] [place] [address] Nurse Practitioner Family Medicine 06/10/24 Team Status: [...] September 05, 2024 End: September 05, 2024 Filter Plant Operator Relationship Specialty Start Date End Date Tapan Zazueta MD [address] [place] [address] PCP - General Family Medicine 06/10/24 Ariella Mathis DO [address] [place] [address] Referring Physician Neurology 01/02/24 Aida Reese NP [address] [place] [address] Nurse Practitioner Family Medicine 06/10/24 Filter Plant Operator Relationship Specialty Start Date End Date Tapan Zazueta MD [address] [place] [address] PCP - General Family Medicine 06/10/24 Ariella Mathis DO [address], [place] [id number] Referring Physician Neurology 01/02/24 Aida Reese NP [address] [place] [address] Nurse Practitioner Family Medicine 06/10/24 Filter Plant Operator Relationship Specialty Start Date End Date Tapan Zazueta MD [address] [place] [address] PCP - General Family Medicine 06/10/24 Ariella Mathis DO [address], [place] [address] Referring Physician Neurology 01/02/24 Aida Reese NP [address] [place] [address] Nurse Practitioner Family Medicine 06/10/24 Filter Plant Operator Relationship Specialty Start Date End Date Tapan Zazueta MD [address] [place] [address] PCP - General Family Medicine 06/10/24 Ariella Mathis DO [address], [place] [address] Referring Physician Neurology 01/02/24 Aida Reese NP [address] [place] [address] Nurse Practitioner Family Medicine 06/10/24 Filter Plant Operator Relationship Specialty Start Date End Date Tapan Zazueta MD [address] [place] [phone] PCP - General Family Medicine 06/10/24 Ariella Mathis DO [address] [place], [place] [address] Referring Physician Neurology 01/02/24 Aida Reese NP [address] [place] [address] Nurse Practitioner Family Medicine 06/10/24 Filter Plant Operator Relationship Specialty Start Date End Date Tapan Zazueta MD [address] [place] [address] PCP - General Family Medicine 06/10/24 Ariella Mathis DO [address] [place], [place] [address] Referring Physician Neurology 01/02/24 Aida Reese NP [address] [place] [address] Nurse Practitioner Family Medicine 06/10/24 Filter Plant Operator Relationship Specialty Start Date End Date Tapan Zazueta MD [address] [place] [address] PCP - General Family Medicine 06/10/24 Ariella Mathis DO [address] [place] [address] Referring Physician Neurology 01/02/24 Aida Reese NP [address] [place] [address] Nurse Practitioner Family Medicine 06/10/24 Filter Plant Operator Relationship Specialty Start Date End Date Tapan Zazueta MD [address] [place] [phone] PCP - General Family Medicine 06/10/24 Ariella Mathis DO [address] [place] [address] Referring Physician Neurology 01/02/24 Aida Reese NP [address] [place] [address] Nurse Practitioner Family Medicine 06/10/24 Filter Plant Operator Relationship Specialty Start Date End Date Tapan Zazueta MD [address] [place] [phone] PCP - General Family Medicine 06/10/24 Ariella Mathis DO [address] [place] [address] Referring Physician Neurology 01/02/24 Aida Reese NP [address] [place] [address] Nurse Practitioner Family Medicine 06/10/24 Filter Plant Operator Relationship Specialty Start Date End Date Tapan Zazueta MD [address] [place] [address] PCP - General Family Medicine 06/10/24 Ariella Mathis DO [address], [place] [address] Referring Physician Neurology 01/02/24 Aida Reese NP [address] [place] [address] Nurse Practitioner Family Medicine 06/10/24 Filter Plant Operator Relationship Specialty Start Date End Date Tapan Zazueta MD [address] [place] [address] PCP - General Family Medicine 06/10/24 Ariella Mathis DO [address], [place] [address] Referring Physician Neurology 01/02/24 Aida Reese NP [address] [place] [address] Nurse Practitioner Family Medicine 06/10/24 Filter Plant Operator Relationship Specialty Start Date End Date Tapan Zazueta MD [address] [place] [address] PCP - General Family Medicine 06/10/24 Ariella Mathis DO [address], [place] [address] Referring Physician Neurology 01/02/24 Aida Reese NP [address] [place] [address] Nurse Practitioner Family Medicine 06/10/24 Filter Plant Operator Relationship Specialty Start Date End Date Tapan Zazueta MD [address] [place] [address] PCP - General Family Medicine 06/10/24 Ariella Mathis DO [address], [place] [address] Referring Physician Neurology 01/02/24 Aida Reese NP [address] [place] [address] Nurse Practitioner Family Medicine 06/10/24 Filter Plant Operator Relationship Specialty Start Date End Date Tapan Zazueta MD [address] [place] [address] PCP - General Family Medicine 06/10/24 Ariella Mathis DO [address] [place], [place] [id number] Referring Physician Neurology 01/02/24 Aida Reese NP [address] [place] [address] Nurse Practitioner Family Medicine 06/10/24 Filter Plant Operator Relationship Specialty Start Date End Date Tapan Zazueta MD [address] [place] [address] PCP - General Family Medicine 06/10/24 Ariella Mathis DO [address] [place] [address] Referring Physician Neurology 01/02/24 Aida Reese NP [address] [place] [address] Nurse Practitioner Family Medicine 06/10/24 Team Status: Inactive Member Role Status Dates Allan Lacey MD Attending Provider Active Start: September 12, 2024 End: September 12, 2024 Aida Reese NP-C Primary Care Provider Ac tive Start: September 12, 2024 End: September 12, 2024 Filter Plant Operator Relationship Specialty Start Date End Date Tapan Zazueta MD [address] [place] [address] PCP - General Family Medicine 06/10/24 Ariella Mathis DO [address] [place] [address] Referring Physician Neurology 01/02/24 Aida Reese NP [address] [place] [address] Nurse Practitioner Family Medicine 06/10/24 Filter Plant Operator Relationship Specialty Start Date End Date Tapan Zazueta MD [address] [address] PCP - General Family Medicine 06/10/24 Ariella Mathis DO [address] [place] [address] Referring Physician Neurology 01/02/24 Aida Reese NP [address] [place] [address] Nurse Practitioner Family Medicine 06/10/24 Filter Plant Operator Relationship Specialty Start Date End Date Tapan Zazueta MD [address] [place] [address] PCP - General Family Medicine 06/10/24 Ariella Mathis DO [address] [place], [place] [id number] Referring Physician Neurology 01/02/24 Aida Reese NP [address] [place] [address] Nurse Practitioner Family Medicine 06/10/24 Filter Plant Operator Relationship Specialty Start Date End Date Tapan Zazueta MD [address] [place] [phone] PCP - General Family Medicine 06/10/24 Ariella Mathis DO [address] [place] [address] Referring Physician Neurology 01/02/24 Aida Reese NP [address] [place] [address] Nurse Practitioner Family Medicine 06/10/24 Filter Plant Operator Relationship Specialty Start Date End Date Tapan Zazueta MD [address] [place] [address] PCP - General Family Medicine 06/10/24 Ariella Mathis DO [address] [place] [address] Referring Physician Neurology 01/02/24 Aida Reese NP [address] [place] [address] Nurse Practitioner Family Medicine 06/10/24 Filter Plant Operator Relationship Specialty Start Date End Date Tapan Zazueta MD [address] [place] [address] PCP - General Family Medicine 06/10/24 Ariella Mathis DO [address] [place] [address] Referring Physician Neurology 01/02/24 Aida Reese, RIKKI [address] [place] [address] Nurse Practitioner Family Medicine 06/10/24 Filter Plant Operator Relationship Specialty Start Date End Date Tapan Zazueta MD [address] [place] [address] PCP - General Family Medicine 06/10/24 Ariella Mathis DO [address] [place] [address] Referring Physician Neurology 01/02/24 Aida Reese NP [address] [place] [address] Nurse Practitioner Family Medicine 06/10/24 Filter Plant Operator Relationship Specialty Start Date End Date Tapan Zazueta MD [address] [place] [address] PCP - General Family Medicine 06/10/24 Ariella Mathis DO [address] [place], [place] [address] Referring Physician Neurology 01/02/24 Aida Reese NP [address] [place] [address] Nurse Practitioner Family Medicine 06/10/24 Filter Plant Operator Relationship Specialty Start Date End Date Tapan Zazueta MD [address] [place] [address] PCP - General Family Medicine 06/10/24 Ariella Mathis DO [address] [place], [place] [id number] Referring Physician Neurology 01/02/24 Aida Reese NP [address] [place] [address] Nurse Practitioner Family Medicine 06/10/24 Filter Plant Operator Relationship Specialty Start Date End Date Tapan Zazueta MD [address] [place] [address] PCP - General Family Medicine 06/10/24 Ariella Mathis DO [address] [place] [address] Referring Physician Neurology 01/02/24 Aida Reese NP [address] [place] [address] Nurse Practitioner Family Medicine 06/10/24 Filter Plant Operator Relationship Specialty Start Date End Date Tapan Zazueta MD [address] [place] [address] PCP - General Family Medicine 06/10/24 Ariella Mathis DO [address] [place] [address] Referring Physician Neurology 01/02/24 Aida Reese NP [address] [place] [address] Nurse Practitioner Family Medicine 06/10/24 Filter Plant Operator Relationship Specialty Start Date End Date Tapan Zazueta MD [address] [place] [phone] PCP - General Family Medicine 06/10/24 Ariella Mathis DO [address] [place], [place] [address] Referring Physician Neurology 01/02/24 Aida Reese NP [address] [place] [address] Nurse Practitioner Family Medicine 06/10/24 Filter Plant Operator Relationship Specialty Start Date End Date Tapan Zazueta MD [address] [place] [address] PCP - General Family Medicine 06/10/24 Ariella Mathis DO [address] [place] [address] Referring Physician Neurology 01/02/24 Aida Reese NP [address] [place] [address] Nurse Practitioner Family Medicine 06/10/24 Filter Plant Operator Relationship Specialty Start Date End Date Tapan Zazueta MD [address] [place] [address] PCP - General Family Medicine 06/10/24 Ariella Mathis DO [address] [place] [address] Referring Physician Neurology 01/02/24 Aida Reese NP [address] [place] [address] Nurse Practitioner Family Medicine 06/10/24 Filter Plant Operator Relationship Specialty Start Date End Date Tapan Zazueta MD [address] [place] [address] PCP - General Family Medicine 06/10/24 Ariella Mathis DO [address] [place] [address] Referring Physician Neurology 01/02/24 Aida Reese NP [address] [place] [address] Nurse Practitioner Family Medicine 06/10/24 Filter Plant Operator Relationship Specialty Start Date End Date Tapan Zazueta MD [address] [place] [address] PCP - General Family Medicine 06/10/24 Ariella Mathis DO [address] [place] [address] Referring Physician Neurology 01/02/24 Aida Reese NP [address] [place] [address] Nurse Practitioner Family Medicine 06/10/24 Filter Plant Operator Relationship Specialty Start Date End Date Tapan Zazueta MD [address] [place] [address] PCP - General Family Medicine 06/10/24 Ariella Mathis DO [address], [place] [address] Referring Physician Neurology 01/02/24 Aida Reese NP [address] [place] [address] Nurse Practitioner Family Medicine 06/10/24 Filter Plant Operator Relationship Specialty Start Date End Date Tapan Zazueta MD [address] [place] [address] PCP - General Family Medicine 06/10/24 Ariella Mathis DO [address] [place] [address] Referring Physician Neurology 01/02/24 Aida Resee NP [address] [place] [address] Nurse Practitioner Family Medicine 06/10/24 Filter Plant Operator Relationship Specialty Start Date End Date Tapan Zazueta MD [address] [place] [address] PCP - General Family Medicine 06/10/24 Ariella Mathis DO [address] [place] [address] Referring Physician Neurology 01/02/24 Aida Reese NP [address] [place] [address] Nurse Practitioner Family Medicine 06/10/24 Filter Plant Operator Relationship Specialty Start Date End Date Tapan Zazueta MD [address] [place] [address] PCP - General Family Medicine 06/10/24 Ariella Mathis DO [address] [place] [address] Referring Physician Neurology 01/02/24 Aida Reese NP [address] [place] [address] Nurse Practitioner Family Medicine 06/10/24 Filter Plant Operator Relationship Specialty Start Date End Date Tapan Zazueta MD [address] [place] [address] PCP - General Family Medicine 06/10/24 Ariella Mathis DO [address] [place] [address] Referring Physician Neurology 01/02/24 Aida Reese NP [address] [place] [address] Nurse Practitioner Family Medicine 06/10/24 Filter Plant Operator Relationship Specialty Start Date End Date Tapan Zazueta MD [address] [place] [address] PCP - General Family Medicine 06/10/24 Ariella Mathis DO [address] [place] [address] Referring Physician Neurology 01/02/24 Aida Reese NP [address] [place] [address] Nurse Practitioner Family Medicine 06/10/24 Filter Plant Operator Relationship Specialty Start Date End Date Tapan Zazueta MD [address] [place] [address] PCP - General Family Medicine 06/10/24 Ariella Mathis DO [address] [place] [address] Referring Physician Neurology 01/02/24 Aida Reese NP [address] [place] [address] Nurse Practitioner Family Medicine 06/10/24 Goals (unrecognized [...] BE BASED ON THE PRIMARY CLINICAL RECORDS. [employer] [facility]. provides no warranty or guarantee of the accuracy or completeness of information in this document.
[2025-07-05] MEDS: MAGNESIUM SULFATE/D5W 1 GM/100 ML PREMIX IV (21:40)
[2025-07-05] MEDS: GUAIFENESIN 200 MG/DEXTROMETHORPHAN 20 MG 10 ML UNIT DOSE CUP PO (21:40)
[2025-07-05] MEDS: METHYLPREDNISOLONE SOD SUCC PF 40 MG/ML VIAL IVP (21:40)
[2025-07-05] MEDS: ENOXAPARIN SODIUM 40 MG/0.4 ML SYRINGE SUBQ (21:43)
[2025-07-06] VITALS (20 sets, daily range): BP systolic 105–149; BP diastolic 56–83; PULSE 64–89; TEMP 36.1–36.9; O2SAT 90–92
[2025-07-06] MEDS: 0.9 % SODIUM CHLORIDE 1,000 ML 100 ML IV ×2 (04:22→09:00)
[2025-07-06] MEDS: BACLOFEN 10 MG TABLET PO ×2 (06:19→21:51)
[2025-07-06 06:41] LABS: Hematocrit 30.9 % (36.0-48.0); Hemoglobin 10.1 g/dL (12.0-16.0); Immature Granulocytes Abs Auto 0.10 10^3/uL (0.00-0.03); Immature Granulocytes Pct Auto 0.7 % (0.0-0.5); Lymphocytes Absolute Auto 0.7 10^3/uL (1.2-3.8); Mean Corpuscular HGB Conc 32.7 g/dL (29.9-35.2); Mean Corpuscular Hemoglobin 30.0 pg (26.7-34.0); Mean Corpuscular Volume 91.7 fL (81.0-99.0); Platelet Count 292 10^3/uL (150-450); Red Blood Count 3.37 10^6/uL (4.20-5.40); White Blood Count 14.6 10^3/uL (4.0-11.0)
[2025-07-06 06:57] LABS: Lactate/Lactic Acid 0.5 mmol/L (0.4-2.0)
[2025-07-06 06:59] LABS: Anion Gap 13.5; Blood Urea Nitrogen 8.0 mg/dL (7.0-18.0); Calcium 8.1 mg/dL (8.5-10.1); Carbon Dioxide 26.1 mmol/L (21.0-32.0); Chloride 107 mmol/L (98-107); Estimated GFR (African America >60 (>=60 mL/min/1.73m^2); Estimated GFR (Non-African Ame >60 (>=60 mL/min/1.73m^2); Glucose 156 mg/dL (74-106); Magnesium 1.9 mg/dL (1.8-2.4); Potassium 3.6 mmol/L (3.5-5.1); Sodium 143 mmol/L (136-145)
--- NOTE | 2025-07-06 08:00 | ECG_ITS ---
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: : [id number] Requested By: [id number] Order Number: [id number] Reading MD: HETAL SCALES Measurements Intervals [place] Rate: 64 P: 64 [place]: 145 QRS: -3 QRSD: 111 T: -9 QT: 474 QTc: 490 Interpretive Statements SINUS RHYTHM ANTEROSEPTAL INFARCT, AGE INDETERMINATE LOW QRS VOLTAGE IN PRECORDIAL LEADS [QRS DEFLECTION < 1.0 mV IN CHEST LEADS] PATTERN CONSISTENT WITH PULMONARY DISEASE MODERATE INTRAVENTRICULAR CONDUCTION DELAY [105+ ms QRS DURATION, 80+ ms Q/S IN V1/V2, NO Q AND 60+ ms R IN I/aVL/V5/V6] NONSPECIFIC ST DEPRESSION PROLONGED QT INTERVAL Compared to ECG 07/05/2025 15:19:01 ST (T wave) deviation now present Prolonged QT interval now present Left bundle-branch block no longer present Electronically Signed On 07-09-2025 13:32:28 EDT by HETAL SCALES
[2025-07-06] MEDS: PANTOPRAZOLE SODIUM 40 MG TABLET.DR PO ×2 (08:59→21:51)
[2025-07-06] MEDS: METHYLPREDNISOLONE SOD SUCC PF 40 MG/ML VIAL IVP ×2 (08:59→21:51)
[2025-07-06] MEDS: PREGABALIN 75 MG CAPSULE PO ×2 (08:59→21:51)
[2025-07-06] MEDS: MAGNESIUM OXIDE 400 MG TABLET PO (08:59)
[2025-07-06] MEDS: MONTELUKAST SODIUM 10 MG TABLET PO (08:59)
[2025-07-06] MEDS: IPRATROPIUM/ALBUTEROL SULFATE 3 ML AMPUL.NEB IH ×3 (09:17→21:12)
--- NOTE | 2025-07-06 12:02 | PM.HP ---
HPI H&P: HPI History of Present Illness Chief complaint: COPD EXACERBATION HYPOKELMIA HYPOMIG Narrative: Mrs. Champion is a 69-year-old female with a history of COPD, chronic hypoxic and hypercapnic respiratory failure for which she is on oxygen at home 3 to 4 L and uses a ventilator machine at night. Patient came in with worsening shortness of breath, cough and congestion. No chest pain. No fever or chills. No hematemesis or melena. No abdominal pain, nausea or vomiting. No lower extremity swelling. Opioid HPI Opioid Management Most Recent Pain and Opioid Data: Last Pain Scale 5 07/05/25, 15:15 Last Pain Intensity 0 03/11/25, 14:27 Last Pain Assessment 07/05/25, 21:40 Last ORT Total Score 0 07/05/25, 20:27 Last ORT Risk Category Low Risk 07/05/25, 20:27 Review of Systems ROS Status of ROS 10 or more systems reviewed and unremarkable except as noted in history and below [facility] Medical History (Updated 07/06/25 @ 12:04 by Mat Zheng MD) Diet-controlled diabetes mellitus ?E11.9 - Type 2 diabetes mellitus without complications (ICD-10) Tracheobronchomalacia ?J39.8 - Other specified diseases of upper respiratory tract (ICD-10) 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 - Critical illness myopathy (ICD-10) Upper respiratory infection ?J06.9 - Acute upper respiratory infection, unspecified (ICD-10) Hypoxemia ?R09.02 - Hypoxemia (ICD-10) Acute and chronic respiratory failure ?J96.20 - Acute and chronic respiratory failure, unspecified whether with hypoxia or hypercapnia (ICD-10) Weakness ?R53.1 - Weakness (ICD-10) RLL pneumonia ?J18.9 - Pneumonia, unspecified organism (ICD-10) Acute viral syndrome ?B34.9 - Viral infection, unspecified (ICD-10) Asthma exacerbation in COPD ?J44.1 - Chronic obstructive pulmonary disease with (acute) exacerbation (ICD-10) Hypomagnesemia ?E83.42 - Hypomagnesemia (ICD-10) Acute hypokalemia ?E87.6 - Hypokalemia (ICD-10) Pneumonia ?J18.9 - Pneumonia, unspecified organism (ICD-10) Melanoma ?C43.9 - Malignant melanoma of skin, unspecified (ICD-10) Mediastinal lymphadenopathy ?R59.0 - Localized enlarged lymph nodes (ICD-10) Restrictive lung disease ?J98.4 - Other disorders of lung (ICD-10) CAD (coronary artery disease) ?I25.10 - Atherosclerotic heart disease of [place] coronary artery without angina pectoris (ICD-10) Chronic heart failure with preserved ejection fraction (HFpEF) ?I50.32 - Chronic diastolic (congestive) heart failure (ICD-10) Acute exacerbation of COPD with asthma ?J44.1 - Chronic obstructive pulmonary disease with (acute) exacerbation (ICD-10) ?J45.901 - Unspecified asthma with (acute) exacerbation (ICD-10) Lumbar radiculopathy ?M54.16 - Radiculopathy, lumbar region (ICD-10) Encounter for long-term opiate analgesic use ?Z79.891 - penitentiary (current) use of opiate analgesic (ICD-10) Failed back syndrome ?M96.1 - Postlaminectomy syndrome, not elsewhere classified (ICD-10) Acute exacerbation of chronic low back pain ?M54.50 - Low back pain, unspecified (ICD-10) ?G89.29 - Other chronic pain (ICD-10) Thoracic spondylosis ?M47.814 - Spondylosis without myelopathy or radiculopathy, thoracic region (ICD-10) Hypoxia ?R09.02 - Hypoxemia (ICD-10) URI (upper respiratory infection) ?J06.9 - Acute upper respiratory infection, unspecified (ICD-10) Orthostasis ?I95.1 - Orthostatic hypotension (ICD-10) Community acquired pneumonia ?J18.9 - Pneumonia, unspecified organism (ICD-10) Severe malnutrition ?E43 - Unspecified severe protein-calorie malnutrition (ICD-10) Acute exacerbation of chronic obstructive pulmonary disease (COPD) ?J44.1 - Chronic obstructive pulmonary disease with (acute) exacerbation (ICD-10) Severe persistent asthma with exacerbation ?J45.51 - Severe persistent asthma with (acute) exacerbation (ICD-10) Morbid obesity ?E66.01 - Morbid (severe) obesity due to excess calories (ICD-10) Other pulmonary collapse ?J98.19 - Other pulmonary collapse (ICD-10) Chronic respiratory failure with hypoxia ?J96.11 - Chronic respiratory failure with hypoxia (ICD-10) Bronchitis ?J40 - Bronchitis, not specified as acute or chronic (ICD-10) Acute exacerbation of chronic obstructive pulmonary disease ?J44.1 - Chronic obstructive pulmonary disease with (acute) exacerbation (ICD-10) Myofascial pain ?M79.18 - Myalgia, other site (ICD-10) Greater trochanteric bursitis ?M70.60 - Trochanteric bursitis, unspecified hip (ICD-10) Osteoarthritis of right hip ?M16.11 - Unilateral primary osteoarthritis, right hip (ICD-10) Lumbar spondylosis ?M47.816 - Spondylosis without myelopathy or radiculopathy, lumbar region (ICD-10) Lumbar postlaminectomy syndrome ?M96.1 - Postlaminectomy syndrome, not elsewhere classified (ICD-10) Lumbar stenosis with neurogenic claudication ?M48.062 - Spinal stenosis, lumbar region with neurogenic claudication (ICD-10) Depression ?F32.A - Depression, unspecified (ICD-10) Chronic low back pain ?M54.50 - Low back pain, unspecified (ICD-10) ?G89.29 - Other chronic pain (ICD-10) Hypoxia ?R09.02 - Hypoxemia (ICD-10) Heart murmur ?R01.1 - Cardiac murmur, unspecified (ICD-10) Chronic obstructive pulmonary disease ?J44.9 - Chronic obstructive pulmonary disease, unspecified (ICD-10) Asthma ?J45.909 - Unspecified asthma, uncomplicated (ICD-10) Surgical History H/O cataract removal with insertion of prosthetic lens ?Z98.49 - Cataract extraction status, unspecified eye (ICD-10) ?Z96.1 - Presence of intraocular lens (ICD-10) Status post hip surgery ?Z98.890 - Other specified postprocedural states (ICD-10) H/O foot surgery ?Z98.890 - Other specified postprocedural states (ICD-10) H/O tubal ligation ?Z98.51 - Tubal ligation status (ICD-10) History of lumbar fusion ?Z98.1 - Arthrodesis status (ICD-10) Family History Mother Family history of CHF (congestive heart failure) Family history of hypertension Father Family history of hypertension Family history of myocardial infarction Social History (Updated 07/05/25 @ 22:10 by Yuni Loza RN) Within the past year, how often did you have a drink containing alcohol: never Within the past year, how often did you have six or more drinks on one occasion: never Score interpretation: A score less than 3 is consistent with normal alcohol consumption. Smoking status: Never smoker Second hand tobacco smoke exposure: No Non-prescribed substance use: denies use Previous occupational history: retired Known occupational exposures/hazards: No Highest level of school completed/degree received: Associate degree: occupational, technical, vocational program Are you now , , , , never or living with a partner: In a typical week, how many times do you talk on the telephone with family, friends, or neighbors: 3 or more times per week How often do you get together with friends or relatives: 3 or more times per week How often do you attend alevism or hoahaoism services: 4 or more times per year Do you belong to any clubs or organizations such as alevism groups unions, [employer] or athletic groups, or school groups: no Total score: 2 Score interpretation: A score of greater than or equal to 2 indicates the lowest level of social isolation. Little interest or pleasure in doing things: not at all Feeling down, depressed, or hopeless: not at all Feel stressed/tense/nervous/anxious/difficulty sleeping: not at all Do you think of yourself as: straight/heterosexual Gender Identity: female Meds Home Medications and Allergies Home Medications ?Medication ?Instructions ?Recorded ?Confirmed ?Type omeprazole 20 mg capsule,delayed 20 mg PO BID 04/10/23 07/06/25 History release pregabalin 75 mg capsule 75 mg PO BID 11/25/23 07/05/25 History trazodone 100 mg tablet 100 mg PO .qhs 11/25/23 07/05/25 History baclofen 10 mg tablet 10 mg PO TID 02/03/24 07/06/25 History albuterol sulfate 2.5 mg/3 mL 2.5 mg inhalation QID PRN 06/06/24 07/05/25 History (0.083 %) solution for nebulization shortness of breath or wheezing latanoprost 0.005 % eye drops 1 drp ophthalmic (eye) .HS 08/09/24 07/05/25 History paroxetine HCl 40 mg tablet 40 mg PO HS 03/10/25 07/06/25 History pramipexole 0.25 mg tablet 0.25 mg PO .qhs PRN restless leg(s) 03/11/25 07/06/25 History guaifenesin 600 mg tablet, 600 mg PO Q12H 7 days #14 tabs 03/16/25 07/06/25 Rx extended release 12 hr (Mucus Relief ER) ensifentrine 3 mg/2.5 mL 2.5 ml inhalation BID 04/30/25 07/06/25 History suspension for nebulization (Ohtuvayre) ferrous sulfate 325 mg (65 mg 325 mg PO DAILY 04/30/25 07/06/25 History iron) tablet (iron) trospium 60 mg capsule,extended 60 mg PO DAILY 04/30/25 07/05/25 History release 24 hr albuterol sulfate 90 mcg/actuation 2 puff inhalation Q4H PRN 07/05/25 07/06/25 History aerosol inhaler shortness of breath or wheezing bupropion HCl 150 mg 24 hr tablet, 150 mg PO .Q AM 07/05/25 07/06/25 History extended release fluticasone propionate 50 2 spray intranasal DAILY 07/05/25 07/06/25 History mcg/actuation nasal spray,suspension furosemide 20 mg tablet 20 mg PO .Q AM 07/05/25 07/06/25 History budesonide 160 mcg-glycopyr 9 2 inh inhalation BID 07/06/25 07/06/25 History mcg-formot 4.8 mcg/actuation HFA inhaler (Breztri Aerosphere) cholecalciferol (vitamin D3) 25 1,000 unit PO DAILY 07/06/25 07/06/25 History mcg (1,000 unit) chewable tablet (VitaJoy Daily D) magnesium oxide 400 mg (241.3 mg 400 mg PO .Q AM 07/06/25 07/06/25 History magnesium) tablet montelukast 10 mg tablet 10 mg PO .Q Am 07/06/25 07/06/25 History Allergies Allergy/AdvReac Type Severity Reaction Status Date / Time No Known Drug Allergies Allergy Verified 07/05/25 15:15 Exam Narrative Exam Narrative: Patient is morbidly obese. Bilateral audible rhonchi heard without evidence of the school. Mild tachypneic in respiratory distress. Pale skin buccal mucosa. Neck is supple, no JVD. Bilateral wheezing and rhonchi noted on chest exam. Heart is regular. Abdomen soft, nontender. Lower extremities no edema Constitutional Vital Signs, click to edit/add: Last Vital Signs Temp 97.9 F 07/06/25 08:30 Pulse 89 07/06/25 10:00 Resp 18 07/06/25 09:18 BP 127/71 07/06/25 08:30 Pulse Ox 91 L 07/06/25 09:18 O2 Del Method Nasal Cannula 07/06/25 09:18 O2 Flow Rate 4 07/06/25 09:18 Results Labs Labs: Short CBC 07/05/25 07/06/25 Range/Units 15:25 05:53 WBC 15.9 H 14.6 H (4.0-11.0) 10^3/uL Hgb 11.6 L 10.1 L (12.0-16.0) g/dL Hct 36.0 30.9 L (36.0-48.0) % Plt Count 314 292 (150-450) 10^3/uL BMP 07/05/25 07/06/25 15:25 05:53 Sodium 140 143 Potassium 2.9 L* 3.6 Chloride 101 107 Carbon Dioxide 26.6 26.1 BUN 9.0 8.0 Creatinine 1.14 H 0.88 Glucose 135 H 156 H Calcium 8.6 8.1 L Liver Function 07/05/25 Range/Units 15:25 Total Bilirubin 0.3 (0.2-1.0) mg/dL AST 16 (15-37) U/L ALT 18 (14-59) U/L Alkaline Phosphatase 100 (46-116) U/L Albumin 2.8 L (3.4-5.0) g/dL Assessment and Plan Assessment and Plan (1) Hypokalemia: (2) Hypomagnesemia: (3) Acute exacerbation of chronic obstructive pulmonary disease: (4) Chronic respiratory failure: (5) Anemia: Plan Acute COPD exacerbation Acute on chronic hypoxic and hypercapnic respiratory failure Patient is on oxygen 24/7 and also she is on mechanical ventilation at home that she is using due to tracheobronchial malacia Acute bronchitis versus developing pneumonia. Baseline moderate to severe pulmonary hypertension. Last echo completed in January 2025 showed RVSP at 63. I have accepted to admit patient to the medical floor. I started her on albuterol, Atrovent, Solu-Medrol, Zithromax and Rocephin. Requested D-dimer. If positive CTA of the chest rule out PE. If negative CT chest with contrast to take a look at the lung parenchyma, pleural space and to rule out underlying malignancy Continue oxygen during the day. Continue noninvasive ventilation through home machine at night Requested to check COVID, influenza AMB and RSV Hypokalemia hypomagnesemia Potassium and magnesium supplementation Anemia, no evidence of acute blood loss. Patient will likely require to have anemia workup to be done in the outpatient setting to be handled by PCP in collaboration with other needed outpatient providers. This may include but not limited to EGD, colonoscopy, referral to see hematology and other needed age-appropriate cancer screening. Morbid obesity. Likely adding burden on her respiratory status Diet, exercise and lifestyle modification. Lactic acidosis and JEANNE had resolved with IV fluid infusion. Depression, anxiety, pain on polypharmacy. Simplifying her regimen to reduce risk of drug?drug interaction and adverse effect. Chronic medical conditions not listed above, incidental findings seen on labs and imaging. These would need to be addressed. Could be addressed when time and condition are appropriate. Could be addressed in the outpatient setting by PCP collaboration with other needed outpatient providers. I had discussed her case with her son and daughter at the bedside. I provided them information about her disease, prognosis,, expectation and trajectory. I answered all their questions to Urinary Catheter Management Urinary Catheter Management Pure Wick: Cath placed during this visit: no
[2025-07-06 12:50] LABS: SARS-CoV-2 Ag NEGATIVE (NEGATIVE)
[2025-07-06] MEDS: POTASSIUM CHLORIDE 10 MEQ ER TABLET 40 MEQ PO (13:25)
[2025-07-06] MEDS: FERROUS SULFATE 325 MG TABLET PO (13:25)
[2025-07-06] MEDS: AZITHROMYCIN 500 MG in 0.9 % SODIUM CHLORIDE 250 ML 250 MG IV (13:25)
--- NOTE | 2025-07-06 15:28 | CT_ITS ---
The [address] [address] Patient Name: JHONATAN MONTOYA MRN: [id number] date: 1955 Sex: F Assigned Patient Location: Current Patient Location: Accession/Order Number: [id number] Exam Date: 07/06/2025 18:00 Report Date: 07/06/2025 18:48 At the request of: JORGE DENG MD Procedure: CT angio chest CT angio chest 07/06/2025 6:25 PM SIGN AND SYMPTOMS: ^Hypoxia, COPD. + Dimer r/o PE CONTRAST: 100 mL of intravenous Omnipaque 350 TECHNIQUE: Multidetector CT axial slices of the chest were obtained with IV contrast. Multiplanar and 3-D reformats were performed and viewed on a separate workstation and reviewed to further define anatomy and possible pathology. CT was performed with one or more of the following dose reduction techniques: Automated exposure control, adjustment of the mA and/or kV according to patient size, or use of iterative reconstruction technique. COMPARISON: 03/11/2025. FINDINGS: Lower neck: Thyroid gland within normal limits, no supraclavicle adenopathy. Vessels: There is no evidence of pulmonary embolism. The main pulmonary trunk measures 4.2 cm in diameter. The right main pulmonary artery measures 3.6 cm in diameter. This may represent sequelae of pulmonary hypertension. Mediastinum and Michelle: Within normal limits. Heart: There is mild cardiomegaly. No pericardial effusion. Airways: There is partial opacification of the segmental bronchus to the right lower lobe possibly secondary to aspiration contents. Lungs: Airspace opacities noted in the right lower lobe suspicious for pneumonia. Lesser degrees of airspace opacities are noted at the left lung base and within the right middle lobe. Pleura: Within normal limits. Chest Wall: Within normal limits. Upper Abdomen: Within normal limits. Bones: Degenerative changes are noted in the thoracic spine. Remote healed rib fractures are present bilaterally. CT/CT angio chest IMPRESSION: There is no evidence of pulmonary embolism. The main pulmonary trunk measures 4.2 cm in diameter. The right main pulmonary artery measures 3.6 cm in diameter. This may represent sequelae of pulmonary hypertension. There is partial opacification of the segmental bronchus to the right lower lobe possibly secondary to aspiration contents. Airspace opacities noted in the right lower lobe suspicious for pneumonia. Lesser degrees of airspace opacities are noted at the left lung base and within the right middle lobe. Impression dictated by: Garland Haley M.D. 07/06/2025 6:48 PM Dictation Location: [place] [address] Electronically authenticated by: [id number] Y Date: 07/06/2025 18:48
[2025-07-06] MEDS: TRAZODONE HCL 50 MG TABLET 100 MG PO (21:51)
[2025-07-06] MEDS: PRAMIPEXOLE 0.125 MG TABLET 0.25 MG PO (21:51)
[2025-07-06] MEDS: LATANOPROST 0.005% 2.5 ML BOTTLE 1 DROP OP (21:51)
[2025-07-06] MEDS: PAROXETINE HCL 20 MG TABLET 40 MG PO (21:52)
[2025-07-06] MEDS: ENOXAPARIN SODIUM 40 MG/0.4 ML SYRINGE SUBQ (21:59)
[2025-07-07] VITALS (23 sets, daily range): BP systolic 117–152; BP diastolic 57–80; PULSE 65–86; TEMP 35.6–36.9; O2SAT 75–96
[2025-07-07] MEDS: BACLOFEN 10 MG TABLET PO ×3 (05:55→21:29)
[2025-07-07] MEDS: FERROUS SULFATE 325 MG TABLET PO (08:37)
[2025-07-07] MEDS: MAGNESIUM OXIDE 400 MG TABLET PO (08:37)
[2025-07-07] MEDS: PREGABALIN 75 MG CAPSULE PO ×2 (08:37→21:29)
[2025-07-07] MEDS: METHYLPREDNISOLONE SOD SUCC PF 40 MG/ML VIAL IVP ×2 (08:37→21:30)
[2025-07-07] MEDS: MONTELUKAST SODIUM 10 MG TABLET PO (08:37)
[2025-07-07] MEDS: PANTOPRAZOLE SODIUM 40 MG TABLET.DR PO ×2 (08:37→21:29)
--- NOTE | 2025-07-07 09:11 | PM.PN ---
Progress Note: Subjective Subjective Interval history: Patient continues to be symptomatic. She continues to have moist cough. She continues to report shortness of breath at rest and with exertion. No abdominal pain. No chest pain. No headaches. No weakness or numbness Exam Narrative Exam Narrative: Patient is morbidly obese. Bilateral audible rhonchi heard without evidence of the school. Mild tachypneic in respiratory distress. Pale skin buccal mucosa. Neck is supple, no JVD. Bilateral wheezing and rhonchi noted on chest exam. Heart is regular. Abdomen soft, nontender. Lower extremities no edema Constitutional Vital Signs, click to edit/add: Last Vital Signs Temp 98.5 F 07/07/25 00:00 Pulse 67 07/07/25 08:00 Resp 18 07/07/25 03:19 BP 134/76 07/07/25 03:19 Pulse Ox 75 L 07/07/25 04:00 O2 Del Method CPAP 07/07/25 03:19 O2 Flow Rate 3 07/06/25 21:12 Progress Note: A&P Assessment and Plan (1) Hypokalemia: (2) Hypomagnesemia: (3) Acute exacerbation of chronic obstructive pulmonary disease: (4) Chronic respiratory failure: (5) Anemia: Plan Acute COPD exacerbation Acute on chronic hypoxic and hypercapnic respiratory failure Patient is on oxygen / and also she is on mechanical ventilation at home at night that she is using due to tracheobronchial malacia Acute pneumonia seen on CT. Previous sputum cultures positive for Pseudomonas. Moderate to severe pulmonary hypertension. Last echo completed in January 2025 showed RVSP at 63. Continue albuterol, Atrovent, Solu-Medrol. Patient had been on ceftriaxone and Zithromax however recent sputum culture was positive for Pseudomonas. Change antibiotic to Levaquin. Her QT is not prolonged. Monitor QT. ECG tomorrow D-dimer is positive but CT is negative for PE. No clinical evidence to suggest lower extremity DVT. Continue oxygen during the day. Continue noninvasive ventilation through home machine at night Requested to check COVID, influenza A/B and RSV these are all negative Hypokalemia hypomagnesemia Potassium and magnesium supplementation Anemia, no evidence of acute blood loss. Patient will likely require to have anemia workup to be done in the outpatient setting to be handled by PCP in collaboration with other needed outpatient providers. This may include but not limited to EGD, colonoscopy, referral to see hematology and other needed age-appropriate cancer screening. Morbid obesity. Likely adding burden on her respiratory status Diet, exercise and lifestyle modification. Lactic acidosis and JEANNE had resolved with IV fluid infusion. Depression, anxiety, pain on polypharmacy. Simplifying her regimen to reduce risk of drug?drug interaction and adverse effect. Chronic medical conditions not listed above, incidental findings seen on labs and imaging. These would need to be addressed. Could be addressed when time and condition are appropriate. Could be addressed in the outpatient setting by PCP collaboration with other needed outpatient providers. I had discussed her case with her son and daughter at the bedside on 07/06. I provided them information about her disease, prognosis,, expectation and trajectory. I answered all their questions to Urinary Catheter Management Urinary Catheter Management Pure Wick: Cath placed during this visit: yes Urethral indwelling: No Insertion date: 07/06/25 Insertion time: 18:00
[2025-07-07] MEDS: IPRATROPIUM/ALBUTEROL SULFATE 3 ML AMPUL.NEB IH ×3 (09:27→20:42)
[2025-07-07] MEDS: LEVOFLOXACIN IN DEXTROSE 5 % 500 MG/100 ML PREMIX 100 MG IV (13:44)
[2025-07-07] MEDS: ENOXAPARIN SODIUM 40 MG/0.4 ML SYRINGE SUBQ (21:29)
[2025-07-07] MEDS: PRAMIPEXOLE 0.125 MG TABLET 0.25 MG PO (21:29)
[2025-07-07] MEDS: TRAZODONE HCL 50 MG TABLET 100 MG PO (21:29)
[2025-07-07] MEDS: PAROXETINE HCL 20 MG TABLET 40 MG PO (21:29)
[2025-07-07] MEDS: LATANOPROST 0.005% 2.5 ML BOTTLE 1 DROP OP (21:30)
[2025-07-08] VITALS (22 sets, daily range): BP systolic 144–165; BP diastolic 76–89; PULSE 63–85; TEMP 36.6–36.8; O2SAT 91–95
[2025-07-08 05:18] LABS: Hematocrit 31.7 % (36.0-48.0); Hemoglobin 10.2 g/dL (12.0-16.0); Mean Corpuscular HGB Conc 32.2 g/dL (29.9-35.2); Mean Corpuscular Hemoglobin 29.7 pg (26.7-34.0); Mean Corpuscular Volume 92.4 fL (81.0-99.0); Platelet Count 303 10^3/uL (150-450); Red Blood Count 3.43 10^6/uL (4.20-5.40); White Blood Count 11.7 10^3/uL (4.0-11.0)
[2025-07-08 05:29] LABS: Anion Gap 12.7; Blood Urea Nitrogen 15.0 mg/dL (7.0-18.0); Calcium 8.3 mg/dL (8.5-10.1); Carbon Dioxide 27.5 mmol/L (21.0-32.0); Chloride 108 mmol/L (98-107); Estimated GFR (African America >60 (>=60 mL/min/1.73m^2); Estimated GFR (Non-African Ame 58 (>=60 mL/min/1.73m^2); Glucose 177 mg/dL (74-106); Potassium 4.2 mmol/L (3.5-5.1); Sodium 144 mmol/L (136-145)
[2025-07-08] MEDS: BACLOFEN 10 MG TABLET PO ×3 (05:29→22:03)
--- OUTSIDE RECORDS SUMMARY | 2025-07-08 06:45 | XMS_ITS | Encounter Summary ---
Author Organization [facility] Address [facility] [place] [address] Care Team Providers Care Health Information Technician Name Role Phone Unavailable Primary Care Provider Unavailabl e Source Comments In the event this information is protected by the Federal Confidentiality of Alcohol and Drug AbusePatient Records regulations: The Federal rules restrict any use of the information to criminally investigate or prosecute any alcohol or drug abuse patient.[facility] Encounter Details Date Type Department Care Team (Late st Contact Info) Description 2021 [place] [address] Provider, f Medicare Coverage of Physical Exams [...] N ot on file 01/20/2021 Data from: [email or web address] Last address used for calculation Not [...]
--- OUTSIDE RECORDS SUMMARY | 2025-07-08 06:45 | XMS_ITS | Encounter Summary ---
Author Organization [facility] Address [address] [place] [address] Care Team Providers Care Pharmacy Ancillary Name Role Phone Shaikh BONNY Ohara Primary Care Provider [phone] Ariella Mathis DO Unavailable [phone] Tapan Barboza MD Primary Care Provider Mae Reese TRIMMER HELPER Unavailable [phone] Encounter Details Date Type Department Care Team (Late st Contact Info) Description 01/26/2024 Clinisync Result Encounter [facility] External Department Unsolicited Shaikh Ohara MD [address] [place] [address] Social History Tobacco Use Types Packs/Day Years [...] week 10/26/2023 How often do you attend [facility] or sabianist services? More than 4 times per year 10/26/2023 Do you belong to any clubs o r organizations such as worship groups, unions, fraternal or athletic groups, or [...] Recorded Patient Health Questionnaire-2 Score 0 01/25/2024 [facility] of Occupat ional Health - Occupational Stress [...] Dermatology [address] [place] [address] Denise Lazo MD [address] [place] [address] 07/17/2025 9:00 AM EDT Office Visit [facility] [address] [place] [address] Kaylene López, RIKKI [address] [place] [address] 12/15/2026 9:00 AM EST [facility] [address] [address] Yuri Bowers PA [address] [address] documented as of this encounter Procedures Procedure Name Priority Date/Time Associated Diagnosis Comments XR LUMBAR SPINE 2 OR 3V 01/26/2024 7:39 AM EDT documented in this encounter Results * XR LUMBAR SPINE 2 OR 3V (01/26/2024 7:39 AM EDT) Anatomical Region Laterality Modality Radiographic Melania ging 01/26/2024 7:39 AM EDT Narrative 01/26/2024 7:41 [place] [address] XRay Report Signed Patient: DIANA CHAMPION MR#: [id number] : 1955 Acct:[id number] Age/Sex: 68 / F ADM Date: 01/25/24 Loc: [facility] Attending Dr: Shaikh Lev Velasquez Ordering Physician: Shaikh Eva Ohara Date of Service: 01/25/24 Procedure(s): XR lumbar spine 2-3V Accession Number(s): [id number] cc: Shaikh Eva Ohara [address] [address] Patient Name: DIANA CHAMPION MRN: [id number] date: 1955 Sex: F Assigned Patient Location: RAD Current Patient Location: Accession/Order Number: [id number] Exam Date: 01/25/2024 12:50 Report Date: 01/26/2024 [...] Signed By: 01/26/24 0741 DD/ 0739 TD/TT: Design Drafter Chief: Procedure Note Radiology, Radiologist, MD - 01/26/2024 [place] [address] XRay Report Signed Patient: DIANA CHAMPION AMR#: [id number] : 1955cct:[id number] Age/Sex: 68 / FADM Date: 01/25/24 Loc: [facility] Attending Dr: Shaikh Lev Velasquez Ordering Physician: Shaikh Eva Ohara Date of Service: 01/25/24 Procedure(s): XR lumbar spine 2-3V Accession Number(s): [id number] cc: Shaikh Eva Ohara The [address] [address] Patient Name: DIANA CHAMPION MRN: [id number] date: 1955 Sex: F Assigned Patient Location: [facility] Current Patient Location: Accession/Order Number: [id number] Exam Date: 01/25/2024 12:50 Report Date: 01/26/2024 [...] M.D. Signed By:01/26/24 0741 DD/ 0739 TD/TT: Design Drafter Chief: us Shaikh Lev DRAPER IMG XR PROCEDURES Final Result documented in this encounter Visit Diagnoses Not on filedocumented in this encounter Additional Health Concerns Assessment Noted Time PHQ-9 Depression Total Score: 7 11/02/20 23 3:03 PM EST documented as of this encounter Care Teams Pharmacy Ancillary Relationship Specialty Start Date End Date Shaikh Ohara MD [address] [place] [address] PCP - General Internal Medicine 12/28/23 06/09/24 Tapan Barboza MD [address] [place] [address] PCP - General Family Medicine 06/10/24 Ariella Mathis DO [address] [place] [address] Referring Physician Neurology 01/02/24 Mae Reese NP [address] [place] [address] Nurse Practitioner Family Medicine 06/10/24 documented as of this encounter
--- OUTSIDE RECORDS SUMMARY | 2025-07-08 06:45 | XMS_ITS | Encounter Summary ---
Author Organization [facility] Address [address] [place] [address] Care Team Providers Care Field Installation Technician Name Role Phone Ariella Mathis DO Unavailable [phone] Tapan Barboza MD Primary Care Provider [phone] Mae Reese CAVITY PUMP OPERATOR Unavailable [phone] Encounter Details Date Type Department Care Team (Late st Contact Info) Description 08/12/2024 Orders Only [facility] [address] [place] [address] Shaikh Ohara MD [address] [place] [address] Social History Tobacco Use Types Packs/Day Years [...] How often do you attend [facility] or confucianist services? More than 4 times per year 10/26/2023 Do you belong to any clubs o r organizations such as mormonism groups, unions, fraternal or athletic groups, or [...] Recorded Patient Health Questionnaire-2 Score 0 07/11/2024 [facility] [place] of Occupat ional Health - Occupational Stress [...] place to sleep or slept in a jail (including now)? No 10/26/2023 Comments Unknown Sex [...] Dermatology [address] [place] [address] Denise Lazo MD [address] [place] [address] 07/17/2025 9:00 AM EDT Office Visit [facility] [address] [place] [address] Kaylene López NP [address] [place] [address] 12/15/2026 9:00 AM EST Office Visit [facility] [address] [place] [address] Yuri Bowers PA [address] [place] [address] documented as of this encounter Goals [...] documented as of this encounter Care Teams Field Installation Technician Relationship Specialty Start Date End Date Tapan Barboza MD [address] [place] [address] PCP - General Family Medicine 06/10/24 Ariella Mathis DO [address] [place] [address] Referring Physician Neurology 01/02/24 Mae Reese NP [address] [place] [address] Nurse Practitioner Family Medicine 06/10/24 documented as of this encounter
--- OUTSIDE RECORDS SUMMARY | 2025-07-08 06:45 | XMS_ITS | Encounter Summary ---
Author Organization [facility] Address [address] [place] [address] Care Team Providers Care Database Management System Specialist Name Role Phone Unavailable Primary Care Provider Unavailabl e Source Comments In the event this information is protected by the Federal Confidentiality of Alcohol and Drug AbusePatient Records regulations: The Federal rules restrict any use of the information to criminally investigate or prosecute any alcohol or drug abuse patient.[facility] Encounter Details Date Type Department Care [...]
--- OUTSIDE RECORDS SUMMARY | 2025-07-08 06:45 | XMS_ITS | Encounter Summary ---
Author Organization [facility] Address [address] [facility] [place] [address] Care Team Providers Care Kennel Technician Name Role Phone Shaikh BONNY Ohara Primary Care Provider [phone] Shaikh BONNY Ohara Primary Care Provider [phone] Ariella Mathis DO Unavailable [phone] Tapan Barboza MD Primary Care Provider [phone] Mae Reese SUPERVISOR BROADLOOM Unavailable [phone] Encounter Details Date Type Department Care Team [...] How often do you attend chur or orthodox services? More than 4 times per year 10/26/2023 Do you belong to any clubs o r organizations such as druze groups, unions, fraHelpa or athletic groups, or school groups? No [...] care, and heating? Not very hard 10/26/2023 [facility] of Occupat ional Health - [...] a senior living (including now)? No 10/26/2023 Comments Unknown Sex [...] Dermatology [address] [place] [address] Denise Lazo MD [address] [place] [address] 07/17/2025 9:00 AM EDT Office Visit [facility] [address] [place] [address] Kaylene López NP [address] [place] [address] 12/15/2026 9:00 AM EST Office Visit [facility] [address] [place] [address] Yuri Bowers PA [address] [place] [address] documented as of this encounter Procedures Procedure Name Priority Date/Time Associated Diagnosis Comments XR CHEST 2V 10/25/2023 9:45 AM EST documented in this encounter Results * XR CHEST 2V (10/25/2023 9:45 AM EST) Anatomical Region Laterality Modality Other 10/25/2023 9:45 AM EST Narrative 10/25/2023 9:48 AM EST The [address] [address] XRay Report Signed Patient: DIANA CHAMPION MR#: [id number] : 1955 Acct:[id number] Age/Sex: 68 / F ADM Date: 10/25/23 Loc: RAD Attending Dr: Bo Mcclain D.O. Ordering Physician: Bo Mcclain D.O. Date of Service: 10/25/23 Procedure(s): XR chest 2V Accession Number(s): [id number] cc: Shaikh Eva Ohara; Bo Mcclain D.O. [address] [address] Patient Name: DIANA CHAMPION MRN: [id number] date: 1955 Sex: F Assigned Patient Location: RAD Current Patient Location: RAD Accession/Order Number: [id number] Exam Date: 10/25/2023 09:31 Report Date: 10/25/2023 [...] Stephens M.D. Signed By: 10/25/2348 DD/ TD/TT: Building Services Technician: Procedure Note Radiology, Radiologist, MD - 10/25/2023 [place] [address] XRay Report Signed Patient: DIANA CHAMPION AMR#: [id number] : 1955cct:[id number] Age/Sex: 68 / FADM Date: 10/25/23 Loc: RAD Attending Dr: Bo Mcclain D.O. Ordering Physician: Bo Mcclain D.O. Date of Service: 10/25/23 Procedure(s): XR chest 2V Accession Number(s): [id number] cc: Shaikh Eva Ohara; Bo Mcclain D.O. The [address] [address] Patient Name: DIANA CHAMPION MRN: [id number] date: 1955 Sex: F Assigned Patient Location: RAD Current Patient Location: RAD Accession/Order Number: [id number] Exam Date: 10/25/2023 09:31 Report Date: 10/25/2023 [...] Stephens M.D. Signed By:10/25/23947 DD/ 4 TD/TT: Building Services Technician: us Generic External Data Provider [facility] Final Result documented in this encounter Visit Diagnoses Not on filedocumented in this encounter Care Teams Kennel Technician Relationship Specialty Start Date End Date Shaikh Ohara MD PCP - General Internal Medicine 11/06/22 12/27/23 Shaikh Ohara MD [address] [place] [address] PCP - General Internal Medicine 12/28/23 06/09/24 aTpan Barboza MD [address] [place] [address] PCP - General Family Medicine 06/10/24 Ariella Mathis DO [address] [place] [address] Referring Physician Neurology 01/02/24 Mae Reese NP [address] [place] [address] Nurse Practitioner Family Medicine 06/10/24 documented as of this encounter
--- OUTSIDE RECORDS SUMMARY | 2025-07-08 06:45 | XMS_ITS | Encounter Summary ---
Author Organization [facility] Address [address] [place] [address] Care Team Providers Care Lathe Winder Name Role Phone Shaikh BONNY Ohara Primary Care Provider [phone] Ariella Mathis DO Unavailable [phone] Tapan Barboza MD Primary Care Provider [phone] Mae Reese SONOGRAM TECHNICIAN Unavailable [phone] Encounter Details Date Type Department Care Team [...] How often do you attend chur or restorationism services? More than 4 times per year [...] Recorded Patient Health Questionnaire-2 Score 0 01/25/2024 [facility] of Occupat ional Health - Occupational [...] Dermatology [address] [place] [address] Denise Lazo MD [address] [place] [address] 07/17/2025 9:00 AM EDT Office Visit [facility] [address] [place] [address] Kaylene López NP [address] [place] [address] 12/15/2026 9:00 AM EST Office Visit [facility] [address] [place] [address] Yuri Bowers PA [address] [facility] [address] documented as of this encounter Procedures Procedure Name Priority Date/Time Associated Diagnosis Comments XR CHEST 1 V 02/03/2024 9:41 AM EDT documented in this encounter Results * XR CHEST 1 V (02/03/2024 9:41 AM EDT) Anatomical Region Laterality Modality Other 02/03/2024 9:41 AM EDT Narrative 02/03/2024 9:43 AM EDT [address] [address] XRay Report Signed Patient: DIANA CHAMPION MR#: [id number] : 1955 Acct:[id number] Age/Sex: 68 / F ADM Date: Loc: ER Attending Dr: Ordering Physician: Tere Rodriguez Date of Service: 02/03/24 Procedure(s): XR chest 1V Accession Number(s): [id number] cc: Shaikh Eva Ohara; Tere Rodriguez [address] [address] Patient Name: DIANA CHAMPION MRN: [id number] date: 1955 Sex: F Assigned Patient Location: ED.MAIN Current Patient Location: ER Accession/Order Number: [id number] Exam Date: 02/03/2024 09:15 Report Date: 02/03/2024 [...] M.D. Signed By: 02/03/24942 DD/ 0 TD/TT: Shuttleless Loom Weaver: Procedure Note Radiology, Radiologist, MD - 02/07/2024 [place] [address] XRay Report Signed Patient: DIANA CHAMPION AMR#: [id number] : 1955cct:[id number] Age/Sex: 68 / FADM Date: Loc: ER Attending Dr: Ordering Physician: Tere Rodriguez Date of Service: 02/03/24 Procedure(s): XR chest 1V Accession Number(s): [id number] cc: Shaikh Eva Ohara; Tere Rodriguez The [address] [address] Patient Name: DIANA CHAMPION MRN: [id number] date: 1955 Sex: F Assigned Patient Location: ED.MAIN Current Patient Location: ER Accession/Order Number: [id number] Exam Date: 02/03/2024 09:15 Report Date: 02/03/2024 [...] Boudreaux M.D. Signed By:02/03/2443 DD/ 0 TD/TT: Shuttleless Loom Weaver: us Generic External Data Provider [facility] Final Result documented in this encounter Visit Diagnoses Not on filedocumented in this encounter Additional Health Concerns Assessment Noted Time PHQ-9 Depression Total Score: 7 11/02/20 23 3:03 PM EST documented as of this encounter Care Teams Lathe Winder Relationship Specialty Start Date End Date Shaikh Ohara MD [address] [place] [address] PCP - General Internal Medicine 12/28/23 06/09/24 Tapan Barboza MD [address] [place] [address] PCP - General Family Medicine 06/10/24 Ariella Mathis DO [address] [place] [address] Referring Physician Neurology 01/02/24 Mae Reese NP [address] [place] [address] Nurse Practitioner Family Medicine 06/10/24 documented as of this encounter
--- OUTSIDE RECORDS SUMMARY | 2025-07-08 06:45 | XMS_ITS | Encounter Summary ---
Author Organization [facility] Address [address] [facility] [place] [address] Care Team Providers Care Body Builder Apprentice Name Role Phone Ariella Mathis DO Unavailable [phone] Tapan Barboza MD Primary Care Provider [phone] Mae Reese ALL TERRAIN VEHICLE TECHNICIAN Unavailable [phone] Encounter Details Date Type Department Care Team (Late st Contact Info) Description 12/10/[address] [facility] [address] [place] [address] Mae Reese NP Social History Tobacco Use [...] week 11/25/2024 How often do you attend [facility] or confucianism services? More than 4 times per year 11/25/2024 Do you belong to any clubs o r organizations such as mu-ism groups, unions, fraternal or athletic groups, or [...] Recorded Patient Health Questionnaire-2 Score 0 07/11/2024 [facility] of Occupat ional Health - Occupational Stress [...] in a mcc (including now)? No 10/26/2023 Housing Stability Vital Sign Answer Dhruv e Recorded In the last 12 months, was t here a time when you were not able to pay the mortgage or rent on time? No 11/25/2024 In the past 12 months, how m any times have you moved where you were living? 0 11/25/2024 At any time in the past 12 m [facility], were you homeless or living in a mcc (including now)? No 11/25/2024 Comments Unknown Sex [...] Dermatology [address] [place] [address] Denise Lazo MD [address] [place] [address] 07/17/2025 9:00 AM EDT Office Visit [facility] [address] [place] [address] Kaylene López NP [address] [place] [address] 12/15/2026 9:00 AM EST Office Visit [facility] [address] [facility] [place] [address] Yuri Bowers PA [address] [place] [address] documented as of this encounter [...] documented as of this encounter Care Teams Body Builder Apprentice Relationship Specialty Start Date End Date Tapan Barboza MD [address] [place] [address] PCP - General Family Medicine 06/10/24 Ariella Mathis DO [address] [place] [address] Referring Physician Neurology 01/02/24 Mae eRese NP [address] [place] [address] Nurse Practitioner Family Medicine 06/10/24 documented as of this encounter
--- OUTSIDE RECORDS SUMMARY | 2025-07-08 06:46 | XMS_ITS | Encounter Summary ---
Author Organization [facility] Address [address] [place] [address] Care Team Providers Care Billet Driller Name Role Phone Ariella Mathis DO Unavailable [phone] Tapan Barboza MD Primary Care Provider [phone] Mae Reese SPECIAL SERVICES AGENT Unavailable [phone] Encounter Details Date Type Department Care Team (Late st Contact Info) Description 04/29/2025 Abstract [facility] [address] [place] [address] Kaylene López NP [address] [place] [address] Social History Tobacco Use Types Packs/Day Years [...] any clubs o r organizations such as anabaptist groups, unions, fraternal or athletic groups, or [...] Recorded Patient Health Questionnaire-2 Score 0 07/11/2024 [facility] of Occupat ional Health - Occupational Stress [...] in a long-term (including now)? No 10/26/2023 Housing Stability Vital Sign Answer Dhruv e Recorded In the last 12 months, was t here a time when you were not able to pay the mortgage or rent on time? No 11/25/2024 In the past 12 months, how m any times have you moved where you were living? 0 11/25/2024 At any time in the past 12 m [facility], were you homeless or living in a long-term (including now)? No 11/25/2024 Comments Unknown Sex [...] [address] [place] [address] Denise Lazo MD [address] [place] [address] 07/17/2025 9:00 AM EDT Office Visit [facility] [address] [place] [address] Kaylene López NP [address] [place] [address] 12/15/2026 9:00 AM EST Office Visit [facility] [address] [place] [address] Yuri Bowers PA [address] [place] [address] documented as of this encounter [...] documented as of this encounter Care Teams Billet Driller Relationship Specialty Start Date End Date Tapan Barboza MD [address] [place] [address] PCP - General Family Medicine 06/10/24 Ariella Mathis DO [address] [place] [address] Referring Physician Neurology 01/02/24 Mae Reese NP [address] [place] [address] Nurse Practitioner Family Medicine 06/10/24 documented as of this encounter
--- OUTSIDE RECORDS SUMMARY | 2025-07-08 06:46 | XMS_ITS | Clinical Summary ---
Author Organization [facility] Address [id number] [address] [place] [address] Care Team Providers Care Logistics Planning Manager Name Role Phone Timoteo Rainey MD Primary [...] mg by mouth daily with breakfast. Active agkycyor-kydv-S A-calcium &mins (THERAGRAN-M) 9 mg iron-400 mcg [...] (03/26/2019): Added automatically from request for surgery [id number] Arthritis of right knee 10/17/2018 Lumbar spondylosis 05/22/2018 Overview (05/22/2018): Added automatically from request for surgery [id number] Disorder of sacrum 01/15/2018 Overview (01/15/2018): Added automatically from request for surgery [id number] Immunizations Immunization Administration Dates Next Due Pneumococcal [...] Vaccine 07/07/2025 Medical Devices Implanted Type Area Breadman Device Identifier Shelf Expiration Date Model / Serial / Lot Cmnt Bn Screenheroisc Plc Rpl [id number] - Sna - [id number] Implanted:Qty: 1 on 10/18/2018 by Jim Herring Jr. DO at [facility] Cement Right: Knee [employer] [id number] / NA / [id number] Cmnt Bn Screenheroisc Plc Rpl [id number] - Sna - [id number] Implanted:Qty: 2 on 10/18/2018 by Jim Herring Jr. DO at [facility] Cement Right: Knee [employer] 02/03/2022 [id number] / NA / [id number] Orthopedic Implant Orthopedic Implant Description:lumbar fusion Orthopedic Implant Orthopedic Implant Description:left hip Cmpt Ptlr 32mm Nxgn Alply Rpl [id number] + [id number] + [id number] - Sna - [id number] Implanted:Qty: 1 on 10/18/2018 by Jim Herring Jr., DO at [facility] Orthopedic Implant Right: Knee [employer] 07/06/20265972 5-32 / NA / [id number] Ins Artc 3-4 E-F 12mm Kn Fx Rpl [id number] - Sna - [id number] Implanted:Qty: 1 on 10/18/2018 by Jim Herring Jr., DO at [facility] Orthopedic Implant Right: Knee [employer] 10/05/20225962 2-12 / NA / [id number] Cmpt Fem E Kn Rt Lpsflx Gndr Rpl [id number] - Sna - [id number] Implanted:Qty: 1 on 10/18/2018 by Jim Herring Jr., DO at [facility] Orthopedic Implant Right: Knee [employer] 11/05/20275764- 5-52 / NA / [id number] Plt Tib [id number] Nxgn Kn Cmnt Rpl [id number] + [id number] - Sna - [id number] Implanted:Qty: 1 on 10/18/2018 by Jim Herring Jr. DO at [facility] Plate Right: Knee [employer] 80 7-02 / NA / [id number] Explanted Type Area Breadman Device Identifier Shelf Expiration Date Model / Serial / Lot Scr Bn Chente 35mm 6.5mm Hip St Rpl [id number] + [id number] + 32 - Sna - [id number] Explanted:Qty: 2 on 10/18/2018 at [facility] Screw Right: Knee [employer] 09/05/20280- 5-35 / NA / [id number] Scr Gd 48mm Qd-Spr Hex Hd Mis - Sna - [id number] Explanted:Qty: 2 on 10/18/2018 by Jim Herring Jr. DO at [facility] Screw Right: Knee [employer] 05/05/20285983- 0-48 / NA / [id number] Insurance MEDICARE MEDICAID [place] Advance Directives * Full Code (Latest Code Status on File) Date Activated Date Inactivated Comments 10/18/2018 1:03 PM 10/19/2018 2:33 PM Care Teams Logistics Planning Manager Relationship Specialty Start Date End Date Timoteo Rainey MD PCP - General Family Medicine 12/26/17
--- OUTSIDE RECORDS SUMMARY | 2025-07-08 06:46 | XMS_ITS | Encounter Summary ---
Author Organization [facility] Address [address] [place] [address] Care Team Providers Care Induction Furnace Operator Name Role Phone Ariella Mathis DO Unavailable [phone] Tapan Barboza MD Primary Care Provider [phone] Mae Reese SPACE SCHEDULER Unavailable [phone] Encounter Details Date Type Department Care Team (Late st Contact Info) Description 05/15/2025 Abstract [facility] [address] [place] [address] Kaylene López NP [address] [place] [address] Social History Tobacco Use Types Packs/Day Years [...] any clubs o r organizations such as nondenominational groups, unions, fraternal or athletic groups, or [...] any time in the past 12 m [facility], were you homeless or living in a [...] [address] [place] [phone] Denise Lazo MD [address] [place] [address] 07/17/2025 9:00 AM EDT Office Visit [facility] [address] [place] [phone] Kaylene López NP [address] [place] [address] 12/15/2026 9:00 AM EST Office Visit [facility] [address] [place] [address] Yuri Bowers PA [address] [place] [address] documented as of this encounter [...] documented as of this encounter Care Teams Induction Furnace Operator Relationship Specialty Start Date End Date Tapan Barboza MD [address] [place] [address] PCP - General Family Medicine 06/10/24 Ariella Mathis DO [address] [place] [address] Referring Physician Neurology 01/02/24 Mae Reese NP [address] [place] [address] Nurse Practitioner Family Medicine 06/10/24 documented as of this encounter
--- OUTSIDE RECORDS SUMMARY | 2025-07-08 06:46 | XMS_ITS | Encounter Summary ---
Author Organization [facility] Address [address] [facility] [place] [address] Care Team Providers Care Cone Baker Machine Name Role Phone Ariella Mathis DO Unavailable [phone] Tapan Barboza MD Primary Care Provider Mae Reese CASH TELLER Unavailable [phone] Encounter Details Date Type Department Care Team (Late st Contact Info) Description 07/15/2024 Orders Only [facility] [address] [place] [address] Opioid use Social History Tobacco Use Types [...] week 10/26/2023 How often do you attend [facility] or taoism services? More than 4 times per year 10/26/2023 Do you belong to any clubs o r organizations such as buddhism groups, unions, fraternal or athletic groups, or [...] Patient Health Questionnaire-2 Score 0 07/11/2024 [facility] of Occupat ional Health - Occupational [...] in a chcf (including now)? No 10/26/2023 Comments Unknown Sex [...] Dermatology [address] [place] [address] Denise Lazo MD [address] [place] [address] 07/17/2025 9:00 AM EDT Office Visit [facility] [address] [place] [address] Kaylene López NP [address] [place] [address] 12/15/2026 9:00 AM EST [facility] [address] [place] [address] Yuri Bowers PA [address] [place] [address] documented as of this encounter Visit Diagnoses Diagnosis Opioid use documented in this encounter Additional Health Concerns Assessment Noted Time PHQ-9 Depression Total Score: 7 11/02/20 23 3:03 PM EST documented as of this encounter Care Teams Cone Baker Machine Relationship Specialty Start Date End Date Tapan Barboza MD [address] [place] [address] PCP - General Family Medicine 06/10/24 Ariella Mathis DO [address] [place] [address] Referring Physician Neurology 01/02/24 Mae Reese NP [address] [place] [address] Nurse Practitioner Family Medicine 06/10/24 documented as of this encounter
--- OUTSIDE RECORDS SUMMARY | 2025-07-08 06:46 | XMS_ITS | Clinical Summary ---
Author Organization [facility] Address [address] [place] [address] Care Team Providers Care Career Orientation Teacher Name Role Phone Kaylene López MD Primary Care Provider [phone] Allergies Active Allergy Reactions Criticality Noted Date [...] with Pulm and she will discuss possibly mcc prednisone for her severe Asthma/COPD. Patient instructed [...] finished her oral abx prescribed by her enlisted advisor. Continues to have bronchospasm, wheezing, chest tightness [...] (03/23/2023): Added automatically from request for surgery [id number] Arthritis of right knee 10/17/2018 Lumbar spondylosis 05/22/2018 Overview (03/23/2023): Added automatically from request for surgery [id number] Disorder of sacrum 01/15/2018 Overview (03/23/2023): Added automatically from request for surgery [id number] Asthma 04/01/2014 Chest pain 04/01/2014 Chronic obstructive [...] age to complete this topic Insurance MEDICAID [place] [employer] MEDICARE ADVANTAGE Care Teams Career Orientation Teacher Relationship Specialty Start Date End Date Kaylene López MD [address] [place] [address] PCP - General Nurse Practitioner 01/22/25
--- OUTSIDE RECORDS SUMMARY | 2025-07-08 06:46 | XMS_ITS | Encounter Summary ---
Author Organization [facility] Address [address] [place] [address] [place] [address] Care Team Providers Care Wire Preparation Machine Tender Name Role Phone Shaikh BONNY Ohara Primary Care Provider [phone] Ariella Mathis DO Unavailable [phone] Tapan Barboza MD Primary Care Provider [phone] Mae Reese TRAVEL REGISTERED NURSE NICU Unavailable [phone] Encounter Details Date Type Department Care Team (Late st Contact Info) Description 02/29/2024 Clinisync Result Encounter [facility] External Department Unsolicited Kaylene López, RIKKI [address] [place] [phone] Social History Tobacco Use Types Packs/Day Years [...] How often do you attend [facility] or yazidi services? More than 4 [...] Recorded Patient Health Questionnaire-2 Score 0 02/26/2024 [facility] of Occupat ional Health - Occupational Stress [...] Dermatology [address] [place] [address] Denise Lazo MD [address] [place] [address] 07/17/2025 9:00 AM EDT Office Visit [facility] [address] [place] [address] Kaylene López, RIKKI [address] [place] [address] 12/15/2026 9:00 AM EST Office Visit [facility] [address] [place] [address] Yuri Bowers PA [address] [place] [address] documented as of this encounter Procedures Procedure Name Priority Date/Time Associated Diagnosis Comments MM TOMOSYNTHESIS SCREENING BI 02/29/2024 4:01 PM EDT documented in this encounter Results * MM TOMOSYNTHESIS SCREENING BI (02/29/2024 4:01 PM EDT) Anatomical Region Laterality Modality Other 02/29/2024 4:01 PM EDT Narrative 02/29/2024 4:02 [place] [address] Mammography Report Signed Patient: DIANA CHAMPION MR#: [id number] : 1955 Acct:[id number] Age/Sex: 68 / F ADM Date: 02/28/24 Loc: MAMMO Attending Dr: Kaylene López NP Ordering Physician: Kaylene López NP Results: Date of Service: 02/28/24 Follow Up: Procedure(s): MM tomosynthesis screening BI Accession Number(s): [id number] cc: Kaylene López NP; Shaikh Eva Ohara Patient Name: DIANA CHAMPION MR#: [id number] : 1955 Exam Date: 02/28/2024 Ordering Doctor: [...] radiation, chemotherapy Family Cancers None LOCATION: [facility] BREAST COMPOSITION: The breasts are [...] Signed By: 02/29/24 1602 DD/ 1601 TD/TT: Wrapper Stemmer Hand: Procedure Note Radiology, Radiologist, MD - 02/29/2024 [place] [address] Mammography Report Signed Patient: DIANA CHAMPION AMR#: [id number] : 1955cct:[id number] Age/Sex: 68 / FADM Date: 02/28/24 Loc: MAMMO Attending Dr: Kaylene López NP Ordering Physician: Kaylene López NPResults: Date of Service: 02/28/24Follow Up: Procedure(s): MM tomosynthesis screening BI Accession Number(s): [id number] cc: Kaylene López TRAVEL REGISTERED NURSE NICU; Shaikh Eva Ohara Patient Name: DIANA CHAMPION MR#: [id number] : 1955 Exam Date: 02/28/2024 Ordering Doctor: CLEO López POTATO SPOTTER RADIOLOGY REPORT PROCEDURE: MM TOMOSYNTHESIS SCREENING BI [...] radiation, chemotherapy Family Cancers None LOCATION: [facility] BREAST COMPOSITION: The breasts are [...] M.D. Signed By:02/29/24 1602 DD/ 1601 TD/TT: Wrapper Stemmer Hand: Kaylene López NP [facility] Final Result documented in this encounter Visit Diagnoses Not on filedocumented in this encounter Additional Health Concerns Assessment Noted Time PHQ-9 Depression Total Score: 7 11/02/20 23 3:03 PM EST documented as of this encounter Care Teams Wire Preparation Machine Tender Relationship Specialty Start Date End Date Shaikh Ohara MD [address] [place] [address] PCP - General Internal Medicine 12/28/23 06/09/24 Tapan Barboza MD [address] [place] [address] PCP - General Family Medicine 06/10/24 Ariella Mathis DO [address] [place] [address] Referring Physician Neurology 01/02/24 Mae Reese NP [address] [place] [address] Nurse Practitioner Family Medicine 06/10/24 documented as of this encounter
--- OUTSIDE RECORDS SUMMARY | 2025-07-08 06:46 | XMS_ITS | Clinical Summary ---
Author Organization [facility] Address [facility] [place] [address] Care Team Providers Care Generation Engineer Name Role Phone Unavailable Primary Care Provider [...] N ot on file 01/20/2021 Data from: [email or web address] Last address used for calculation Not on [...] (1 - 1-dose 75+ series) 2031 Insurance [facility]
--- OUTSIDE RECORDS SUMMARY | 2025-07-08 06:46 | XMS_ITS | Encounter Summary ---
Author Organization [facility] Address [address] [place] [address] Care Team Providers Care Rn Imaging Name Role Phone Ariella Mathis DO Unavailable Tapan Barboza MD Primary Care Provider [phone] Mae Reese TEA TREE FARM WORKER Unavailable [phone] Encounter Details Date Type Department Care Team (Late st Contact Info) Description 05/22/2025 Abstract [facility] [address] [place] [address] Kaylene López NP [address] [place] [place] [address] Social History Tobacco Use Types Packs/Day Years [...] How often do you attend chur or methodist services? More than 4 times per year 11/25/2024 Do you belong to any clubs o r organizations such as alevism groups, unions, fraternal or athletic groups, or [...] Recorded Patient Health Questionnaire-2 Score 0 07/11/2024 [facility] of Occupat ional Health [...] a nursing home (including now)? No 10/26/2023 Housing Stability [...] time in the past 12 m [facility], were you homeless or living in a nursing home (including now)? No 11/25/2024 Comments Unknown [...] [address] [place] [address] Denise Lazo MD [address] [place] [address] 07/17/2025 9:00 AM EDT Office Visit [facility] [address] [place] [address] Kaylene López NP [address] [place] [address] 12/15/2026 9:00 AM EST Office Visit [facility] [address] [place] [address] Yuri Bowers PA [address] [place] [address] documented as of this encounter [...] as of this encounter Care Teams Rn Imaging Relationship Specialty Start Date End Date Tapan Barboza MD [address] [place] [address] PCP - General Family Medicine 06/10/24 Ariella Mathis DO [address] [place] [address] Referring Physician Neurology 01/02/24 Mae Reese NP [address] [place] [address] Nurse Practitioner Family Medicine 06/10/24 documented as of this encounter
--- OUTSIDE RECORDS SUMMARY | 2025-07-08 06:46 | XMS_ITS | Encounter Summary ---
Author Organization [facility] Address [address] [place] [address] Care Team Providers Care Top Lift Nailer Name Role Phone Ariella Mathis DO Unavailable [phone] Tapan Barboza MD Primary Care Provider [phone] Mae Reese AQUEDUCT AND RESERVOIR KEEPER Unavailable [phone] Encounter Details Date Type Department Care Team (Late st Contact Info) Description 04/30/2025 Abstract [facility] [address] [place] [address] Kaylene López NP [address] [place] [address] Social History Tobacco Use Types Packs/Day Years [...] How often do you attend chur or uatsdin services? More than 4 times per year 11/25/2024 Do you belong to any clubs o r organizations such as mandaen groups, unions, fraternal or athletic groups, or [...] Recorded Patient Health Questionnaire-2 Score 0 07/11/2024 [facility] of Occupat ional Health - Occupational Stress [...] any time in the past 12 m [facility], were you homeless or living in a [...] [address] [place] [address] Denise Lazo MD [address] [place] [address] 07/17/2025 9:00 AM EDT Office Visit [facility] [address] [place] [address] Kaylene López NP [address] [place] [address] 12/15/2026 9:00 AM EST Office Visit [facility] [address] [place] [address] Yuri Bowers PA [address] [place] [address] documented as of this encounter [...] documented as of this encounter Care Teams Top Lift Nailer Relationship Specialty Start Date End Date Tapan Barboza MD [address] [place] [address] PCP - General Family Medicine 06/10/24 Ariella Mathis DO [address] [place] [address] Referring Physician Neurology 01/02/24 Mae Reese NP [address] [place] [address] Nurse Practitioner Family Medicine 06/10/24 documented as of this encounter
--- OUTSIDE RECORDS SUMMARY | 2025-07-08 06:46 | XMS_ITS | Encounter Summary ---
Author Organization [facility] Address [address] [place] [address] Care Team Providers Care Mobile Ui Designer Name Role Phone Shaikh BONNY Ohara Primary Care Provider [phone] [facility] Unavailable [phone] Kaylene López MD Primary Care Provider [phone] Encounter Details Date Type Department Care Team (Late st Contact Info) Description 06/28/2022 Orders Only [facility] [address] [place] [address] Farrah Denny MA Social History [...] on filedocumented in this encounter Care Teams Mobile Ui Designer Relationship Specialty Start Date End Date Shaikh Ohara MD PCP - General Family Medicine 03/22/23 01/21/25 Kaylene López MD [address] [place] [address] PCP - General Nurse Practitioner 01/22/25 Shay-Mag Peralta RRT [facility] Respiratory Therapy/Pulmonary Disease Department [address] [place] [address] Respiratory Navigator Respiratory Therapy 08/07/2411/13/24 documented as of this encounter
--- OUTSIDE RECORDS SUMMARY | 2025-07-08 06:46 | XMS_ITS | Clinical Summary ---
Author Organization [facility] Address [address] [place] [address] Care Team Providers Care [employer] Name Role Phone Ariella Mathis DO Unavailable [phone] Tapan Barboza MD Primary Care Provider [phone] Mae Reese [employer] Unavailable Allergies Active Allergy Reactions Criticality Noted Date [...] daily for 7 day Recent hospitalization to [facility]: back to back, 01/02/25 and 01/08/25 [...] invasive vent at night Chris is managing social services counselor Assessment & Plan (02/17/2025 6:09 AM EDT): Is oxygen dependant, non invasive vent at night Chris is managing social services counselor Assessment & Plan (01/16/2025 10:31 AM EDT): [...] severe persistent asthma and was discharged from [facility] 3 days ago for acute respiratory [...] [facility] Cardiology Assessment & Plan (01/16/2025 10:31 AM EDT): Last ECHO currently in the chart is form 05/29: EF 50%, significantly elevated right sided pressure at 65 [facility] Cardiology Assessment & Plan (07/11/2024 8:54 AM EDT): [facility]- [facility] [...] and inhaler, trelegy, oxygen Follows with Pulmonology [facility] Assessment & Plan (02/17/2025 6:08 AM EDT): Current meds: albuterol nebs and inhaler, trelegy, oxygen Follows with Pulmonology [facility] Assessment & Plan (01/02/2025 3:25 PM EST): [facility] social services counselor Assessment & Plan (11/28/2024 1:37 PM EST): Was admitted to [facility] for COPD with acute exacerbation. Was [...] conditions and weakness will send her to [facility] ER for evaluation DD: pneumonia, covid, [...] prednisone, I directed her to go to [facility] for direct admission. I spoke to [...] with Pulm and she will discuss possibly intermediate prednisone for her severe Asthma/COPD. Patient instructed [...] 10:34 AM EST): Recent hospital admission at [facility] for acute resp failure due to [...] will also inform the ED provider at [facility] and update them on the reason [...] finished her oral abx prescribed by her social services counselor. Continues to have bronchospasm, wheezing, chest tightness [...] (12/05/2023): Added automatically from request for surgery [id number] Added automatically from request for surgery [id number] Arthritis of right knee 10/17/201802/2025 Lumbar spondylosis 05/22/2018 Overview (12/05/2023): Added automatically from request for surgery [id number] Added automatically from request for surgery [id number] Encounters Date Type Department Care Team Description 06/18/2025 Refill [facility] [address] [place] [address] Kaylene López NP Moderate episode of recurrent major depressive disorder (HCC) 06/16/2025 Telephone [facility] [address] [place] [address] Kaylene López NP 06/04/2025 Refill [facility] [address] [place] [address] Kaylene López NP Skin pustule 05/22/2025 Abstract [facility] [address] [place] [address] Kaylene López NP 05/19/2025 9:00 AM EDT Office Visit [facility] [address] [place] [address] Kaylene López NP Moderate episode of recurrent major depressive disorder (HCC) (Primary Dx); Morbid (severe) obesity due to excess calories (CMS-HCC); Candidiasis of breast; Skin pustule; RLS (restless legs syndrome) 05/19/2025 Telephone [facility] [address] [place] [address] Kaylene López, RIKKI 05/19/2025 Bamboo flowsheet [facility] [address] [place] [address] Kaylene López, [employer] 05/16/2025 Travel 05/15/2025 Abstract [facility] [address] [place] [address] Kaylene López, RIKKI 05/12/2025 Abstract [facility] [address] [place] [address] Kaylene López, RIKKI 05/12/2025 Refill [facility] [address] [place] [address] Kaylene López, RIKKI Chronic heart failure with preserved ejection fraction (HCC) (Primary Dx); Edema of both lower extremities 05/12/2025 Telephone [facility] [address] [place] [address] Kaylene López, RIKKI 04/30/2025 Clinisync Result Encounter [facility] External Department Unsolicited Provider, Generic External Data 04/30/2025 Abstract [facility] [address] [place] [address] Kaylene López, RIKKI 04/29/2025 Abstract [facility] [address] [place] [address] Kaylene López, RIKKI 04/29/2025 Refill [facility] [address] [place] [address] Kaylene López, RIKKI Restless leg syndrome 04/27/2025 Refill [facility] [address] [place] [address] Kaylene López NP Chronic bilateral low back pain without sciatica 04/23/2025 Refill [facility] [address] [place] [address] Kaylene López NP Moderate episode of recurrent major depressive disorder (HCC) (Primary Dx) 04/23/2025 Telephone [facility] [address] [place] [address] Kaylene López NP 04/09/2025 11:00 AM EDT Office Visit [facility] [address] [place] [address] Kaylene López NP Moderate episode of recurrent major depressive disorder (HCC) (Primary Dx); Pulmonary emphysema, unspecified emphysema type (HCC); Chronic respiratory failure with hypoxia (HCC); Morbid (severe) obesity due to excess calories ([facility]-HCC); Restless leg syndrome 04/09/2025 Bamboo flowsheet [facility] [address] [place] [address] Kaylene López NP from Last 3 Months Immunizations Immunization Administration Dates Next Due Influenza, High Dose Seasona l, Preservative Free 09/06/2024 Influenza, High-dose Seasona l, Quadrivalent, Preservative Free 08/26/2023,08/04/2022,08/06/2021 Influenza, Split (incl. [place] f[place] surface antigen) 08/09/2017 Influenza, Unspecified 09/06/2024,2022,08/04/2022,08/06,08/07/2020,08/09/2019,08/08/2018 ,08/10/2017 Influenza, injectable, quadr ivalent, preservative free 08/07/2020,08/09/2019,08/08/2018,08/10 Novel [id number], preservative-free 09/02/2009 Pneumococcal Conjugate PCV 20 08/09/2023 [...] How often do you attend chur or islam services? More than 4 times per year 11/25/2024 Do you belong to any clubs o r organizations such as pentecostalism groups, unions, fraternal or athletic groups, or [...] Recorded Patient Health Questionnaire-2 Score 0 07/11/2024 [facility] - Occupational Stress Questionnaire Answer Date Recorded [...] place to sleep or slept in a retirement (including now)? No 10/26/2023 Housing Stability Vital Sign Answer Dhruv e Recorded In the last 12 months, was t here a time when you were not able to pay the mortgage or rent on time? No 11/25/2024 In the past 12 months, how m any times have you moved where you were living? 0 11/25/2024 At any time in the past 12 m [facility], were you homeless or living in a retirement (including now)? No 11/25/2024 Comments Unknown Sex [...] Dermatology [address] [place] [address] Denise Lazo MD [address] [place] [address] 07/17/2025 9:00 AM EDT Office Visit [facility] [address] [place] [address] Kaylene López, [employer] [address] [place] [address] 12/15/2026 9:00 AM EST Office Visit [facility] [address] [place] [address] Yuri Bowers PA [address] [place] [address] Health Maintenance Due Date Last [...] EDT Narrative 04/30/2025 1:49 PM EDT [facility] [place] [id number] XRay Report Signed Patient: DIANA CHAMPION MR#: [id number] : 1955 Acct:[id number] Age/Sex: 69 / F ADM Date: 04/30/25 Loc: RAD Attending Dr: Jose Saucedo NP Ordering Physician: Jose Saucedo NP Date of Service: 04/30/25 Procedure(s): XR hip RT min 2V Accession Number(s): [id number] cc: Kaylene López NP; Jose Saucedo NP [facility] [place] [address] Patient Name: DIANA CHAMPION MRN: [id number] date: 1955 Sex: F Assigned Patient Location: [facility] Current Patient Location: [facility] Accession/Order Number: [id number] Exam Date: 04/30/2025 13:45 Report Date: 04/30/2025 [...] Jr., D.O. 04/30/2025 1:46 PM Dictation Location: [place] [address] Electronically authenticated by: [id number] Y Date: 04/30/2025 13:46 Dictated By: Marcos Medina M.D. Signed By: 04/30/25 1349 DD/ 134 TD/TT: Director Behavioral Health: Procedure Note Radiology, Radiologist, - 04/30/2025 [facility] [place] [id number] XRay Report Signed Patient: DIANA CHAMPION AMR#: [id number] : 1955cct:[id number] Age/Sex: 69 / FADM Date: 04/30/25 Loc: RAD Attending Dr: Jose Saucedo NP Ordering Physician: Jose Saucedo NP Date of Service: 04/30/25 Procedure(s): XR hip RT min 2V Accession Number(s): [id number] cc: Kaylene López [employer]; Jose Saucedo NP [place] [id number] Patient Name: DIANA CHAMPION MRN: [id number] date: 1955 Sex: F Assigned Patient Location: RAD Current Patient Location: [facility] Accession/Order Number: [id number] Exam Date: 04/30/2025 13:45 Report Date: 04/30/2025 [...] Jr., D.O. 04/30/2025 1:46 PM Dictation Location: [place] [address] Electronically authenticated by: [id number] Y Date: 3:46 Dictated By: Marcos Medina M.D. Signed By:04/30/25 1349 DD/ 1346 TD/TT: Director Behavioral Health: Generic External Data Provider IMG XR PROCEDURES Final Result * Bilateral screening mammogram (03/03/2025 4:42 PM EDT) Anatomical Region Laterality Modality Breast Bilateral Mammography 03/03/2025 4:42 PM EDT Narrative 03/03/2025 4:43 PM EDT [facility] [place] [id number] Mammography Report Signed Patient: DIANA CHAMPION MR#: [id number] : 1955 Acct:[id number] Age/Sex: 69 / F ADM Date: 03/03/25 Loc: MAMMO Attending Dr: Kaylene López NP Ordering Physician: Kaylene López NP Results: Date of Service: 03/03/25 Follow Up: Procedure(s): MM screening mammo BI Accession Number(s): [id number] cc: Kaylene López NP Patient Name: DIANA CHAMPION MR#: [id number] : 1955 Exam Date: 03/03/2025 Ordering Doctor: [...] LOCATION: [facility] BREAST COMPOSITION: The breasts are almost [...] M.D. Signed By: 03/03/251642 DD/ 41 TD/TT: Director Behavioral Health: Procedure Note Radiology, Radiologist, MD - 03/03/2025 [place] [address] Mammography Report Signed Patient: DIANA CHAMPION AMR#: [id number] : 1955cct:[id number] Age/Sex: 69 / FADM Date: 03/03/25 Loc: MAMMO Attending Dr: Kaylene López NP Ordering Physician: Kaylene López NPResults: Date of Service: 03/03/25Follow Up: Procedure(s): MM screening mammo BI Accession Number(s): [id number] cc: Kaylene López NP Patient Name: DIANA CHAMPION MR#: [id number] : 1955 Exam Date: 03/03/2025 Ordering Doctor: CLEO López CNP RADIOLOGY REPORT PROCEDURE: MM SCREENING MAMMO BI COMPARISON: MM TOMOSYNTHESIS SCREENING BI, 02/28/2024. MG MAMM [id number] PRATEEK CAD, 12/15/2022. MG MAMM SCREEN 3D PRATEEK CAD, 11/26/2021. MG MAMM BILSCRN W CAD DIG, 12/16/2013. INDICATIONS: Screening Calculator Name NCI Breast Cancer Risk Assessment Tool 5 Year Breast Cancer Risk 1.20% Lifetime Breast Cancer Risk 4.00% Personal Breast Cancer No Personal Ovarian Cancer No Treatments Excision, radiation, chemotherapy Family Cancers None LOCATION: [facility] BREAST COMPOSITION: The breasts are almost [...] Medina M.D. Signed By:03/03/251642 DD/ 41 TD/TT: Director Behavioral Health: Kaylene López NP IMG BI PROCEDURES Final Result from Last 3 Months or Most Recently Relevant to Health Maintenance Additional Health Concerns Active Problems Noted Date Diagnosed Date Patient on antidepressant monitoring plan 2023 Insurance MEDICAID [place] [employer] MEDICARE ADVANTAGE Care Teams [employer] Relationship Specialty Start Date End Date Tapan Barboza MD [address] [place] [address] PCP - General Family Medicine 06/10/24 Ariella Mathis DO [address] [place] [address] Referring Physician Neurology 01/02/24 Mae Reese NP [address] [place] [address] Nurse Practitioner Family Medicine 06/10/24
--- OUTSIDE RECORDS SUMMARY | 2025-07-08 06:46 | XMS_ITS | Patient Health Record ---
Author Organization The [facility] in [place] Address [address] [place] [address] Care Team Providers Care Product Analyst Name Role Phone BrianlaneyElba mitchell CNPa Primary Care Provider Unavail able Bo Mcclain Unavailable [phone] Kwabena Zepeda Unavailable [phone] Allergies No Known Allergies Results Component Value Reference Range Notes BLOOD GASES BTY Reviewed date:01/12/2025 09:41:19 AM Interpretation: Performing Lab: Notes/Report: [facility] , pH ABG 7.391 7.350-7.450 ABG PCO2 [...] RAD Performing Lab: see note ML - [facility] LB UA RANDOM W or MICROSCOPIC Reviewed date:01/13/2025 02:13:13 PM Interpretation: Performing Lab: Notes/Report: [facility] , Color Urine LT. YELLOW YELLOW Clarity Urine CLEAR CLEAR Specific [place] Urine 1.010 1.005-1.025 pH Urine 6.0 5.0-9.0 [...] Performing Lab: see note ML - [facility] LB BNP Reviewed date:01/13/2025 02:13:13 PM Interpretation: Performing Lab: Notes/Report: [facility] , NT Pro B Type Natriuretic Pept 519.0 <=900.0 pg/mL Performing Lab: see note - [facility] LB CBC AUTO DIFF Reviewed date:01/13/2025 02:13:13 PM Interpretation: Performing Lab: Notes/Report: [facility] , White Blood Count 8.1 4.0-11.0 10 [...] 0.00-0.03 10 3/uL Performing Lab: see note [facility] LB PROF CHEM 8 (BAS METB) Reviewed date:01/13/2025 02:13:13 PM Interpretation: Performing Lab: Notes/Report: [facility] , Sodium 139 136-145 mmol/L Potassium 4.8 3.5-5.1 mmol/L Chloride 99 98-107 mmol/L Carbon Dioxide 33.9 21.0-32.0 mmol/L Anion Gap 10.9 Glucose 258 74-106 mg/dL Blood Urea Nitrogen 36.0 7.0-18.0 mg/dL Creatinine 1.21 0.55-1.02 mg/dL Estimated GFR ( Ayana 54 >=60 mL/min/1.73m 2 Estimated GFR (Non- Kathy 44 >=60 mL/min/1.73m 2 BUN Creatinine Ratio 29.8 Calcium 8.1 8.5-10.1 mg/dL Performing Lab: see note - [facility] LB Manual Differential Reviewed date:01/12/2025 09:41:19 AM Interpretation: Performing Lab: Notes/Report: [facility] , Segmented Neutrophils % Manual 94.0 43.0-75.0 [...] Anisocytosis 1+ Performing Lab: see note - [facility] LB VANCOMYCIN TROUGH Reviewed date:01/13/2025 02:13:13 PM Interpretation: Performing Lab: Notes/Report: [facility] , Vancomycin Trough 15.0 5.0-20.0 ug/mL Performing Lab: see note ML - [facility] LB PROF CHEM 8 (BAS METB) Reviewed date:01/12/2025 09:41:19 AM Interpretation: Performing Lab: Notes/Report: [facility] , Sodium 135 136-145 mmol/L Potassium 4.6 [...] mg/dL Performing Lab: see note ML - [facility] LB CBC AUTO DIFF Reviewed date:01/12/2025 09:41:19 AM Interpretation: Performing Lab: Notes/Report: [facility] , White Blood Count 11.1 4.0-11.0 10 [...] fL Performing Lab: see note ML - [facility] LB BNP Reviewed date:01/12/2025 09:41:19 AM Interpretation: Performing Lab: Notes/Report: [facility] , NT Pro B Type Natriuretic Pept 548.0 <=900.0 pg/mL Performing Lab: see note ML - [facility] LB Manual Differential Reviewed date:01/12/2025 09:41:19 AM Interpretation: Performing Lab: Notes/Report: [facility] , Segmented Neutrophils % Manual 90.0 43.0-75.0 [...] 3/uL Performing Lab: see note ML - [facility] LB PROF CHEM 8 (BAS METB) Reviewed date:01/12/2025 09:41:19 AM Interpretation: Performing Lab: Notes/Report: [facility] , Sodium 136 136-145 mmol/L Potassium 4.6 [...] mg/dL Performing Lab: see note ML - [facility] LB CBC AUTO DIFF Reviewed date:01/12/2025 09:41:19 AM Interpretation: Performing Lab: Notes/Report: [facility] , White Blood Count 10.7 4.0-11.0 10 [...] 9.5-13.5 fL Performing Lab: see note - [facility] LB BNP Reviewed date:01/12/2025 09:41:19 AM Interpretation: Performing Lab: Notes/Report: [facility] , NT Pro B Type Natriuretic Pept 242.0 <=900.0 pg/mL Performing Lab: see note - [facility] LB Manual Differential Reviewed date:01/12/2025 09:41:19 AM Interpretation: Performing Lab: Notes/Report: [facility] , Segmented Neutrophils % Manual 91.0 43.0-75.0 [...] 3/uL Performing Lab: see note ML - [facility] LB PROF CHEM 8 (BAS METB) Reviewed date:01/12/2025 09:41:19 AM Interpretation: Performing Lab: Notes/Report: [facility] , Sodium 137 136-145 mmol/L Potassium 4.4 [...] mg/dL Performing Lab: see note ML - [facility] LB CBC AUTO DIFF Reviewed date:01/12/2025 09:41:19 AM Interpretation: Performing Lab: Notes/Report: [facility] , White Blood Count 16.1 4.0-11.0 10 [...] 9.2 9.5-13.5 fL Performing Lab: see note ML - [facility] LB BNP Reviewed date:01/12/2025 09:41:19 AM Interpretation: Performing Lab: Notes/Report: [facility] , NT Pro B Type Natriuretic Pept 266.0 <=900.0 pg/mL Performing Lab: see note ML - [facility] LB Lower Respiratory Culture Reviewed date:01/14/2025 [...] S F Lower Respiratory Culture Performed at: [facility] Lower Respiratory Culture WILL FOLLOW O:GNR Isolated O:PSMS Isolated Organism: 8.2 Antibiotic Interpretation CUCO Status Cefepime Cefepime S F Ceftazidime Ceftazidime S F Ciprofloxacin Ciprofloxacin S F Levofloxacin Levofloxacin S F Meropenem Meropenem S F Tobramycin Tobramycin S F Piperacillin/Tazobact am Piperacillin/Tazobact am S F Ceftazidime/Avibactam Ceftazidime/Avibactam S F Ceftolozane/Tazobacta m Ceftolozane/Tazobacta m S F Lower Respiratory Culture [address], [place], [place] [id number] Lower Respiratory Culture WILL FOLLOW O:GNR Isolated O:PSMS Isolated Organism: 8.2 Antibiotic Interpretation CUCO Status Cefepime Cefepime S F Ceftazidime Ceftazidime S F Ciprofloxacin Ciprofloxacin S F Levofloxacin Levofloxacin S F Meropenem Meropenem S F Tobramycin Tobramycin S F Piperacillin/Tazobact am Piperacillin/Tazobact am S F Ceftazidime/Avibactam Ceftazidime/Avibactam S F Ceftolozane/Tazobacta m Ceftolozane/Tazobacta m S F Lower Respiratory Culture Supervisor Cell Efficiency: Raphael Marrero PhD, Phone: [phone] Lower Respiratory Culture WILL FOLLOW O:GNR Isolated [...] LC - [facility] LB SEE REPORT - Special Effects Technician Id information not found for 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 Gram Stain Evaluation Reviewed date:01/14/2025 04:11:49 [...] 4 See Below For Report Result 4 JUNIOR MARKETING ASSOCIATE Performing Lab: see note LC - [facility] LB Result 3 Reviewed date:01/14/2025 04:11:49 PM Interpretation: Performing Lab: Notes/Report: [facility] , Result 3 See Below For Report Result 3 JUNIOR MARKETING ASSOCIATE Performing Lab: see note LC - [facility] LB Result 2 Reviewed date:01/14/2025 04:11:49 PM Interpretation: Performing Lab: Notes/Report: [facility] , Result 2 See Below For Report Result 2 JUNIOR MARKETING ASSOCIATE Performing Lab: see note LC - [facility] [...] Lab: see note LC - [facility] LB Manual Differential Reviewed date:01/09/2025 09:12:32 PM Interpretation: Performing Lab: Notes/Report: [facility] , Segmented Neutrophils % Manual 88.0 43.0-75.0 [...] 0.12 Performing Lab: see note ML - [facility] LB PROF CHEM 8 (BAS METB) Reviewed date:01/09/2025 09:12:32 PM Interpretation: Performing Lab: Notes/Report: [facility] , Sodium 138 136-145 mmol/L Potassium 5.0 [...] mg/dL Performing Lab: see note ML - [facility] LB CBC AUTO DIFF Reviewed date:01/09/2025 09:12:32 PM Interpretation: Performing Lab: Notes/Report: [facility] , White Blood Count 12.9 4.0-11.0 10 [...] Performing Lab: see note ML - [facility] LB BNP Reviewed date:01/09/2025 09:12:32 PM Interpretation: Performing Lab: Notes/Report: [facility] , NT Pro B Type Natriuretic Pept 123.0 <=900.0 pg/mL Performing Lab: see note ML - [facility] LB SARS-CoV-2 Ag* Reviewed date:01/08/2025 09:36:16 PM Interpretation: Performing Lab: Notes/Report: [facility] , SARS-CoV-2 Ag POSITIVE NEGATIVE CALLED TO JESSICA BENITEZ, RN @ [phone] This test has not been FDA cleared [...] Performing Lab: see note ML - [facility] LB RSV Reviewed date:01/08/2025 09:36:16 PM Interpretation: Performing Lab: Notes/Report: [facility] , Respiratory Syncytial Virus Not Detected NOT DETECTE Performing Lab: see note ML - [facility] LB MAGNESIUM Reviewed date:01/08/2025 09:36:16 PM Interpretation: Performing Lab: Notes/Report: [facility] , Magnesium 2.1 1.8-2.4 mg/dL Performing Lab: see note ML - [facility] LB LACTATE or LACTIC ACID Reviewed date:01/08/2025 09:36:16 PM Interpretation: Performing Lab: Notes/Report: [facility] , Lactate/Lactic Acid 1.5 0.4-2.0 mmol/L Performing Lab: see note ML - [facility] LB INFLUENZA A AND B AG Reviewed date:01/08/2025 09:36:16 PM Interpretation: Performing Lab: Notes/Report: [facility] , Influenza Virus A Antigen Negative Negative [...] see note ML - [facility] PROF CHEM 8 (BAS METB) Reviewed date:01/07/2025 07:51:37 PM Interpretation: Performing Lab: Notes/Report: [facility] , Sodium 139 136-145 mmol/L Potassium 4.3 [...] Performing Lab: see note ML - [facility] LB CA echo doppler complete Reviewed date:01/06/2025 09:44:14 PM Interpretation: Performing Lab: Notes/Report: Source Facility: [facility]-[address] [place] [address] [place] [address] Cardiology Report Signed Patient: DIANA CHAMPION MR#: [id number] : 1955 Acct:[id number] Age/Sex: 69 / F ADM Date: 01/02/25 Loc: [place] 214-[address]: Kandy Zepeda M.D. Ordering Physician: Kandy Zepeda M.D. Date of Service: 01/06/25 Procedure(s): CA echo doppler complete Accession Number(s): [id number] cc: AIDA BLANC; Kandy Zepeda M.D. Patient Name: DIANA CHAMPION MR#: [id number] : 1955 Exam Date: 01/06/2025 Ordering Doctor: [...] Area (VTI): 2.34 cm2, 2.34 cm2 Deceleration [place]: Pressure Half-Time: Peak Velocity(Antegrade Flow): 1.33 m/s [...] M.D. Signed By: 01/06/251807 DD/ 06 TD/TT: Service Support Representative: [place] [address] Cardiology Report Signed Patient: KRISTEN CHAMPION MR#: [id number] : 1955 Acct:[id number] Age/Sex: 69 / F ADM Date: 01/02/25 Loc: [place] 214-[address]: Samuel Zepeda M.D. Ordering Physician: Kandy Zepeda M.D. Date of Service: 01/06/25 Procedure(s): CA ech o doppler complete Accession Number(s): [id number] cc: CRISTIAN BLANC Douglas M.D. Patient Name: DIANA CHAMPION MR#: [id number] : 1955 Exam Date: 01/06/2025 Ordering Doctor: [...] Area (VTI): 2.34 cm2, 2.34 cm2 Deceleration [place]: Pressure Half-Time: Peak Velocity(Antegr mary Flow): 1.33 [...] M.D. Signed By: 01/06/251807 DD/ 06 TD/TT: Service Support Representative: PROF JOSSELINE Ramirez ([facility]) Reviewed date:01/06/2025 09:44:14 PM Interpretation: Performing Lab: Notes/Report: [facility] , Sodium 140 136-145 mmol/L Potassium 4.1 [...] Performing Lab: see note ML - [facility] LB BNP Reviewed date:01/06/2025 09:44:14 PM Interpretation: Performing Lab: Notes/Report: Comment use blood from this am or skip [facility] , NT Pro B Type Natriuretic Pept 3735.0 <=900.0 pg/mL RESULTS CALLED TO France Winslow RN Performing Lab: see note ML - [facility] LB XR chest 2V Reviewed date:01/05/2025 12:57:10 PM Interpretation: Performing Lab: Notes/Report: Source Facility: [facility]-[address] [place] [address] [place] [address] XRay Report Signed Patient: DIANA CHAMPION MR#: [id number] : 1955 Acct:[id number] Age/Sex: 69 / F ADM Date: 01/02/25 Loc: [place] 214-[address]: Kandy Zepeda M.D. Ordering Physician: Kandy Zepeda M.D. Date of Service: 01/05/25 Procedure(s): XR chest 2V Accession Number(s): [id number] cc: AIDA BLANC; Kandy Zepeda M.D. The [address] [id number] Patient Name: DIANA CHAMPION MRN: [id number] date: 1955 Sex: F Assigned Patient Location: [place] Current Patient Location: [place] Accession/Order Number: [id number] Exam Date: 01/05/2025 09:39 Report Date: 01/05/2025 [...] Medina Jr., D.O.01/05/2025 9:42 AM Dictation Location: [place] [address] Electronically authenticated by: [id number] Y Date: 01/05/2025 09:42 Dictated By: Marcos Medina M.D. Signed By: 01/05/2545 DD/ 1 TD/TT: Service Support Representative: [place] [address] XRay Report Signed Patient: KRISTEN CHAMPION MR#: [id number] : 1955 Acct:[id number] Age/Sex: 69 / F ADM Date: 01/02/25 Loc: [place] 214-[address]: Samuel Zepeda M.D. Ordering Physician: Kandy Zepeda M.D. Date of Service: 01/05/25 Procedure(s): XR mine st 2V Accession Number(s): [id number] cc: AIDA BLANC; Kandy Zepeda M.D. The [place] [id number] Patient Name: DIANA CHAMPION MRN: [id number] date: 1955 Sex: F Assigned Patient Location: MS Current Patient Location: MS Accession/Order Numb er: [id number] Exam Date: 01/05/2025 09:39 Report Date: 01/05/2025 [...] Medina Jr., D.O.01/05/2025 9:42 AM Dictation Location: [place] [address] Electronically authenticated by: [id number] Y Date: 01/05/2025 09:42 Dictated By: Marcos Medina M.D. Signed By: 01/05/25 0945 DD/ TD/TT: Service Support Representative: Venous Blood Gas Reviewed date:01/05/2025 12:57:10 PM Interpretation: Performing Lab: Notes/Report: [facility] , pH VBG 7.434 7.330-7.430 PCO2 VBG 45.8 40.0-52.0 mmHg Performing Lab: see note ML - [facility] LB PROF CHEM 8 (BAS METB) Reviewed date:01/05/2025 12:57:10 PM Interpretation: Performing Lab: Notes/Report: [facility] , Sodium 140 136-145 mmol/L Potassium 4.3 [...] Performing Lab: see note ML - [facility] LB CT chest wo con Reviewed date:11/13/2024 02:55:20 PM Interpretation: Performing Lab: Notes/Report: Source Facility: [facility]-[address] [place] [address] [place] [address] CT Scan Report Signed Patient: DIANA CHAMPION MR#: [id number] : 1955 Acct:[id number] Age/Sex: 69 / F ADM Date: 11/12/24 Loc: MS 231-[address]: Shaikh Lev Velasquez Ordering Physician: Bo Mcclain D.O. Date of Service: 11/13/24 Procedure(s): CT chest wo con Accession Number(s): [id number] cc: AIDA BLANC [place] [address] Patient Name: DIANA CHAMPION MRN: [id number] date: 1955 Sex: F Assigned Patient Location: MS Current Patient Location: MS Accession/Order Number: [id number] Exam Date: 11/13/2024 13:54 Report Date: 11/13/2024 [...] Signed By: 11/13/24 1422 DD/ 1419 TD/TT: Service Support Representative: [place] [address] CT Scan Report Signed Patient: KRISTEN CHAMPION MR#: [id number] : 1955 Acct:[id number] Age/Sex: 69 / F ADM Date: 11/12/24 Loc: MS 231-[address]: Shaikh Lev Velasquez Ordering Physician: Bo Mcclain D.O. Date of Service: 11/13/24 Procedure(s): CT mine st wo con Accession Number(s): [id number] cc: AIDA BLANC [address] [address] Patient Name: DIANA CHAMPION MRN: [id number] date: 1955 Sex: F Assigned Patient Location: MS Current Patient Location: MS Accession/Order Numb er: [id number] Exam Date: 11/13/2024 13:54 Report Date: 11/13/2024 [...] Signed By: 11/13/24 1422 DD/ 1419 TD/TT: Service Support Representative: Venous Blood Gas Reviewed date:08/13/2024 06:54:33 AM Interpretation: Performing Lab: Notes/Report: [facility] , pH VBG 7.394 7.330-7.430 PCO2 VBG 52.9 40.0-52.0 mmHg Performing Lab: see note ML - [facility] LB PROF CHEM 8 (BAS METB) Reviewed date:01/14/2025 09:26:10 AM Interpretation: Performing Lab: Notes/Report: [facility] , Sodium 135 136-145 mmol/L Potassium 4.4 [...] mg/dL Performing Lab: see note ML - [facility] LB CBC AUTO DIFF Reviewed date:01/14/2025 09:26:10 AM Interpretation: Performing Lab: Notes/Report: [facility] , White Blood Count 9.7 4.0-11.0 10 [...] 3/uL Performing Lab: see note - [facility] LB BNP Reviewed date:01/14/2025 09:26:10 AM Interpretation: Performing Lab: Notes/Report: [facility] , NT Pro B Type Natriuretic Pept 452.0 <=900.0 pg/mL Performing Lab: see note ML - [facility] LB Reason For Referral No Information [...] Comme nts Arexvy Unknown 08/18/2023 Administered Comirnaty Mozenda Syringe Pre -Filled 30 mcg/0.3 mL Unknown 09/20/2024 Administered Flu, Fluad (19678) 65 yrs + High Dose Seasonal (3515-4157) Unknown 09/06/2024 Administered Flu, Fluzone High-Dose (2022 -2023) (30444) 65 yrs+ Unknown 08/26/2023 Administered Pneumococcal (Pneumovax [...] Problem Status W/U Status Risk Notes Problem 072181649 Morbid (severe) obesity due to excess calories (E66.01) Active confirmed Problem 671227499 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 Problem Chronic respiratory failure (26469182) Chronic respiratory failure with hypoxia (J96.11) Active confirmed Problem Pulmonary collapse (00431965) Other pulmonary collapse (J98.19) Active confirmed Dynamic airway collapse Problem 820273764 [facility] (current) use of inhaled steroids (Z79.51) Active confirmed Problem Chronic obstructive pulmonary disease (13101290) Chronic obstructive pulmonary disease (J44.9) Active confirmed Prior treatment: Trelegy 100 > Breo 100 > Spiriva > albuterol > Atrovent Problem Restless legs syndrome (27361978) Restless leg syndrome (G25.81) Active confirmed Problem Depression (230086626) Depression (F32.9) Active confirmed Problem Allergic rhinitis (30242039) Allergic rhinitis (J30.9) Active confirmed Problem Restrictive lung disease (77374601) Restrictive lung disease (J98.4) Active confirmed Problem Multiple pulmonary nodules (929392076) Multiple pulmonary nodules (R91.8) Active confirmed Problem Lung field abnormal (345694853) Ground glass opacity present on imaging of lung (R91.8) Active confirmed Problem Gastroesophageal reflux disease (661740969) Gastroesophageal reflux disease (K21.9) Active confirmed Problem Exacerbation of asthma (876682146) Asthma with acute exacerbation (J45.901) Active confirmed Problem Daytime sleep (174036950) Daytime hypersomnolence (G47.19) Active confirmed Problem Pneumonia (696333439) Healthcare-associ ated pneumonia (J18.9) Active confirmed Problem Secondary pulmonary hypertension (57895183) Other secondary pulmonary hypertension (I27.29) Active confirmed Problem 90379970 Allergic rhinitis, unspecified seasonality, unspecified trigger (J30.9) Active confirmed Problem Lumbar spinal stenosis (13055675) Lumbar stenosis (M48.061) Active confirmed Problem History of COVID-19 (91483295650885481 5) History of COVID-19 (Z86.16) Active confirmed 04/04/2023: Severe associated hypoxic respiratory failure Problem Body mass index 40+ - severely obese (226437029) Body mass index [BMI] 40.0-44.9, adult (Z68.41) [...] Encounter Location Date Provider Diagnosis Pulmonary Medicine [address] [address] 08/06/2024 Bo Mcclain 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 ; Restrictive lung disease J98.4 ; Chronic obstructive pulmonary disease J44.9 ; Other pulmonary collapse J98.19 ; Chronic respiratory failure with hypoxia J96.11 ; Allergic rhinitis J30.9 ; Daytime hypersomnolence G47.19 ; Restless leg syndrome G25.81 ; 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 test consultant (current) use of inhaled steroids Z79.51 ; History of COVID-19 Z86.16 ; Morbid (severe) obesity due to excess calories E66.01 and Body mass index [BMI] 40.0-44.9, adult Z68.41 Pulmonary [facility] [address] [place] [address] 12/10/2024 [facility] Chronic obstructive pulmonary disease with (acute) exacerbation J44.1 and Candidal stomatitis B37.[address] [address] 04/02/2025 [facility] Chronic obstructive pulmonary disease J44.9 ; Other pulmonary collapse J98.19 ; 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 ; Other secondary pulmonary hypertension I27.29 ; Chronic respiratory failure with hypoxia J96.11 ; [facility] (current) use of inhaled steroids Z79.51 ; History of COVID-19 Z86.16 and Morbid (severe) obesity due to excess calories E66.[address] [address] 05/01/2025 [facility] Chronic obstructive pulmonary disease J44.9 ; 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 ; Other pulmonary collapse J98.19 ; Chronic respiratory failure with hypoxia J96.11 ; Other secondary pulmonary hypertension I27.29 ; Allergic rhinitis J30.9 ; Oral candidiasis B37.0 ; performance test consultant (current) use of inhaled steroids Z79.51 ; Morbid (severe) obesity due to excess calories E66.01 and History of COVID-19 Z86.16 [facility] [address] [place] [address] 10/22/2024 [facility] Chronic obstructive pulmonary disease J44.9 ; Other pulmonary collapse J98.19 ; Seborrheic dermatitis, unspecified L21.9 ; 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 ; Chronic respiratory failure with hypoxia J96.11 ; [facility] (current) use of inhaled steroids Z79.51 ; History of COVID-19 Z86.16 and Morbid (severe) obesity due to excess calories E66.01 [facility] [address] [place] [address] 09/03/2024 [facility] Chronic obstructive pulmonary disease J44.9 ; Healthcare-associated pneumonia J18.9 ; Other pulmonary collapse J98.19 ; 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 ; Encounter for immunization Z23 ; Chronic respiratory failure with hypoxia J96.11 ; Allergic rhinitis J30.9 ; Daytime hypersomnolence G47.19 ; [facility] (current) use of inhaled steroids Z79.51 ; History of COVID-19 Z86.16 ; Morbid (severe) obesity due to excess calories E66.01 and Body mass index [BMI] 40.0-44.9, adult Z68.41 [facility] [place] [address] [place] [address] 01/29/2025 [facility] Chronic obstructive pulmonary disease J44.9 ; Other pulmonary collapse J98.19 ; 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 ; Other secondary pulmonary hypertension I27.29 ; Chronic respiratory failure with hypoxia J96.11 ; performance test consultant (current) use of inhaled steroids Z79.51 ; History of COVID-19 Z86.16 and Morbid (severe) obesity due to excess calories E66.01 [facility] [place] [address] [place] [address] 12/09/2024 [facility] [place] [address] [facility] [address] 01/08/2025 [facility] [place] [address] [place] [address] 01/14/2025 [facility] [address] [place] [facility] [place] [address] 01/14/2025 Kwabena Zepeda [facility] [place] [address] [facility] [address] 02/24/2025 [facility] Chronic obstructive pulmonary disease J44.9 [facility] [place] [address] [place] [address] 06/16/2025 [facility] [place] [address] [facility] [address] 07/23/2024 [facility] [place] [address] [place] [address] 08/12/2024 [facility] [place] [address] [facility] [address] 09/12/2024 [facility] [place] [address] [facility] [address] 11/04/2024 [facility] [place] [address] [facility] [address] 11/12/2024 [facility] Chronic obstructive pulmonary disease J44.9 [facility] [place] [address] [place] [address] 11/28/2024 [facility] Assessments Encounter Date Diagnosis (ICD Code) Assessment Notes Treatment Notes Treatment Clinical Notes Section Notes 08/06/2024 Critical illness myopathy (ICD-10 - 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 This neuromuscular weakness is not secondary to [...] acute hypercapnic respiratory failure. This is a tokn-jq-cgrv visit performed with the patient today to [...] very well. No further antibiotics necessary. 10/22/2024 Other pulmonary collapse (ICD-10 - J98.19) Dynamic airway collapse Tracheobronchomalacia Sumq-vy-gfxi performed today regarding continued need for NIV. [...] is advised to follow-up with her PCP. 10/22/2024 Chronic obstructive pulmonary disease (ICD-10 - J44.9) Prior treatment: Trelegy 100 > Breo 100 > Spiriva > albuterol > Atrovent From a dyspnea standpoint, she is doing well on Trelegy. Main complaint continues to be cough. Discussed new medication Ohtuvayre to add on top of all her other medications. She stated that she was okay with her current regimen. 12/10/2024 Candidal stomatitis (ICD-10 - B37.0) Mild candidiasis, likely secondary to steroids + antibiotics. May worsen with Augmentin. She has clotrimazole troches at home - she was instructed to use them. 12/10/2024 Chronic obstructive pulmonary disease with (acute) [...] chest tightness, wheezing, etc. Keep January appointment. 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 Compliance from 12/29/2024 - 01/23/2025 was reviewed. She continues to voice improved breathing using NIV. There is a slight decrease in compliance from January 08 through secondary to her hospital admission. Other than that, she continues to do very well. Her rash has resolved. 01/29/2025 Chronic obstructive pulmonary disease (ICD-10 - [...] responds to Breztri first. F/U 2 months. 04/02/2025 Chronic obstructive pulmonary disease (ICD-10 - J44.9) Prior treatment: Breztri > Trelegy 200 > Trelegy 100 > Breo 100 > Spiriva > albuterol > Atrovent She is doing better since hospitalization. Breztri working much better than Trelegy - it requires less NIF than Trelegy. Will continue current treatment for now. Reassess in 3 months given severity of her pulmonary disease. 05/01/2025 Critical illness myopathy (ICD-10 - G72.81) Emwx-oy-qibo encounter performed with the patient to document continued need for a high frequency chest wall oscillation (vest) device. -Use of vest twice daily: Yes -Improvement of mobilization and clearance of secretions: Improved -Amplitude/frequency of oscillations tolerable: Yes -Continues to use nebulized saline: Yes -Continues to use PEP device: Yes -Recommendations: Continue PEP, saline nebs, NIV, and vest. 05/01/2025 Chronic obstructive pulmonary disease (ICD-10 - [...] she keep up with her pulmonary toilet. [facility] Pulmonology practice will be permanently closing. Refilling all medications today. As it will be several months until I would be able to see her again elsewhere, prescribing prednisone and antibiotics in case she has a flare and is unable to reach anyone. 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 It was recommended for referral to [facility] for tracheobronchoplasty, but patient wished to have conservative treatment for now. 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 09/03/2024 Chronic respiratory failure with hypoxia (ICD-10 - J96.11) Qopr-rj-fdob encounter performed with the patient to document [...] this time on 3L/min. Continue O2 ATC. 08/06/2024 Allergic rhinitis (ICD-10 - J30.9) Patient continue saline rinses and Flonase. 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 01/29/2025 [facility] (current) use of inhaled steroids (ICD-10 - Z79.51) Patient was counseled to rinse & gargle with water after inhaled corticosteroid use. 04/02/2025 Chronic respiratory failure with hypoxia (ICD-10 - J96.11) Ejxt-tu-roan encounter performed with the patient to document [...] clotrimazole sent in just in case 04/02/2025 [facility] (current) use of inhaled steroids (ICD-10 [...] 04/04/2023: Severe associated hypoxic respiratory failure 05/01/2025 [facility] (current) use of inhaled steroids (ICD-10 [...] loss indicated: Decrease calories, increase activity. 09/03/2024 [facility] (current) use of inhaled steroids (ICD-10 - Z79.51) Patient was counseled to rinse & gargle with water after inhaled corticosteroid use. 08/06/2024 [facility] (current) use of inhaled steroids (ICD-10 - Z79.51) Patient was counseled to rinse & gargle with water after inhaled corticosteroid use. 09/03/2024 History of COVID-19 (ICD-10 - Z86.16) 04/04/2023: Severe associated hypoxic respiratory failure 08/06/2024 History of COVID-19 (ICD-10 - Z86.16) [...] End Date [address] [place] [address] [id number] Diana Champion Self - patient is the insured 5 5 [employer] MEDICARE [address] [place] [id number] Diana Champion Self - patient is the insured 5 MEDICAID [place] 2ND INS [address] OFF[place] OF [place], [place] [id number] Diana Champion Self - patient is the [...] Healthcare-associated pneumonia J18.9 Surgical History Surgery Date(Month/Year) spinal fusion Cardiac Catheterization tubal ligation Right Foot Surgery right knee replacement left hip replacement Bronchoscopy- 07/02/2024 Hospitalization History Reason Date(Month/Year) HCAP - [facility] 03/11/2025 COVID & Pseudomonas pneumonia-[facility] 2024 Asthma/COPD Exacerbation-[facility] 01/02/2025 COPD Exacerbation, pneumonia-TB COPD Exacerbation-[facility] 06/07/2024 COPD Exacerbation-[facility] 04/11/2024 Pneumonia-[facility] 02/03/2024 Kjxac-93-OYX 04/10/2023 Hospital Acquired Pneumonia-[facility] 08/08/20 Sepsis/Pneumonia-[facility] 11/25/2023
--- OUTSIDE RECORDS SUMMARY | 2025-07-08 06:46 | XMS_ITS | Encounter Summary ---
Author Organization [facility] Address [address] [place] [address] Care Team Providers Care Drop Hammer Setter Up Name Role Phone Shaikh BONNY Ohara Primary Care Provider [phone] Ariella Mathis DO Unavailable [phone] Tapan Barboza MD Primary Care Provider Mae Reese VEGETABLE BUNCHER Unavailable [phone] Encounter Details Date Type Department Care Team (Late st Contact Info) Description 02/13/2024 Clinisync Result Encounter [facility] External Department Unsolicited Shaikh Ohara MD [address] [place] [id number] Social History Tobacco Use Types Packs/Day Years [...] 10/26/2023 How often do you attend [facility] or adventist services? More than 4 times per year 10/26/2023 Do you belong to any clubs o r organizations such as shinto groups, unions, fraternal or athletic groups, or [...] Recorded Patient Health Questionnaire-2 Score 0 01/25/2024 [facility] [place] of Occupat ional Health - Occupational Stress [...] Dermatology [address] [place] [address] Denise Lazo MD [address] [place] [address] 07/17/2025 9:00 AM EDT Office Visit [facility] [address] [place] [address] Kaylene López, RIKKI [address] [place] [address] 12/15/2026 9:00 AM EST Office Visit [facility] [address] [facility] [place] [address] Yuri Bowers PA [address] [place] [address] documented as of this encounter Procedures Procedure Name Priority Date/Time Associated Diagnosis Comments MR LUMBAR SPINE WO CON 02/13/2024 2:06 PM EDT documented in this encounter Results * MR LUMBAR SPINE WO CON (02/13/2024 2:06 PM EDT) Anatomical Region Laterality Modality Other 02/13/2024 2:06 PM EDT Narrative 02/13/2024 2:08 [place] [address] Magnetic Resonance Report Signed Patient: DIANA CHAMPION MR#: [id number] : 1955 Acct:[id number] Age/Sex: 68 / F ADM Date: 02/13/24 Loc: MRI Attending Dr: Shaikh Lev Velasquez Ordering Physician: Shaikh Eva Ohara Date of Service: 02/13/24 Procedure(s): MR lumbar spine wo con Accession Number(s): [id number] cc: Shaikh Eva Ohara [place] [id number] Patient Name: DIANA CHAMPINO MRN: [id number] date: 1955 Sex: F Assigned Patient Location: MRI Current Patient Location: MRI Accession/Order Number: [id number] Exam Date: 02/13/2024 10:45 Report Date: 02/13/2024 [...] Signed By: 02/13/24 1408 DD/ 1406 TD/TT: Medical Auditor: Procedure Note Radiology, Radiologist, MD - 02/13/2024 [place] [address] Magnetic Resonance Report Signed Patient: DIANA CHAMPION AMR#: [id number] : 1955cct:[id number] Age/Sex: 68 / FADM Date: 02/13/24 Loc: MRI Attending Dr: Shaikh Lev Velasquez Ordering Physician: Shaikh Eva Ohara Date of Service: 02/13/24 Procedure(s): MR lumbar spine wo con Accession Number(s): [id number] cc: Shaikh Eva Ohara [place] [id number] Patient Name: DIANA CHAMPION MRN: [id number] date: 1955 Sex: F Assigned Patient Location: MRI Current Patient Location: MRI Accession/Order Number: [id number] Exam Date: 02/13/2024 10:45 Report Date: 02/13/2024 [...] M.D. Signed By:02/13/24 1408 DD/ 1406 TD/TT: Medical Auditor: Shaikh Lev DRAPER [facility] Final Result documented in this encounter Visit Diagnoses Not on filedocumented in this encounter Additional Health Concerns Assessment Noted Time PHQ-9 Depression Total Score: 7 11/02/20 23 3:03 PM EST documented as of this encounter Care Teams Drop Hammer Setter Up Relationship Specialty Start Date End Date Shaikh Ohara MD [address] [place] [address] PCP - General Internal Medicine 12/28/23 06/09/24 Tapan Barboza MD [address] [place] [address] PCP - General Family Medicine 06/10/24 Ariella Mathis DO [address] [place] [address] Referring Physician Neurology 01/02/24 Mae Reese NP [address] [place] [address] Nurse Practitioner Family Medicine 06/10/24 documented as of this encounter
--- OUTSIDE RECORDS SUMMARY | 2025-07-08 06:46 | XMS_ITS | Encounter Summary ---
Author Organization [facility] Address [address] [facility] [place] [address] Care Team Providers Care Hall Tender Name Role Phone Shaikh BONNY Ohara Primary Care Provider [phone] Ariella Mathis DO Unavailable [phone] Taapn Barboza MD Primary Care Provider [phone] Mae Reese SUPERVISOR [employer]ATING [employer] POINT ASSEMBLY Unavailable [phone] Encounter Details Date Type Department Care Team [...] How often do you attend chur or adventist services? More than 4 times per year 10/26/2023 Do you belong to any clubs o r organizations such as temple groups, unions, fraternal or athletic groups, or [...] Recorded Patient Health Questionnaire-2 Score 0 04/17/2024 [facility] of Occupat ional Health [...] Dermatology [address] [place] [address] Denise Lazo MD [address] [place] [address] 07/17/2025 9:00 AM EDT Office Visit [facility] [address] [place] [address] Kaylene López NP [address] [place] [address] 12/15/2026 9:00 AM EST Office Visit [facility] [address] [place] [address] Yuri Bowers PA [address] [place] [address] documented as of this encounter Procedures Procedure Name Priority Date/Time Associated Diagnosis Comments CA ECHO DOPPLER COMPLETE 05/29/2024 3:49 PM EDT documented in this encounter Results * CA ECHO DOPPLER COMPLETE (05/29/2024 3:49 PM EDT) Anatomical Region Laterality Modality Other 05/29/2024 3:49 PM EDT Narrative 05/29/2024 3:50 [place] [address] Cardiology Report Signed Patient: DIANA CHAMPION MR#: [id number] : 1955 Acct:[id number] Age/Sex: 68 / F ADM Date: 05/28/24 Loc: CARD Attending Dr: Nasim Scales M.D. Ordering Physician: Nasim Scales M.D. Date of Service: 05/28/24 Procedure(s): CA echo doppler complete Accession Number(s): [id number] cc: Nasim Scales M.D.; Shaikh Eva Ohara Patient Name: DIANA CHAMPION MR#: [id number] : 1955 Exam Date: 05/28/2024 Ordering Doctor: [...] Signed By: 05/29/24 1550 DD/ 1549 TD/TT: Respiratory Care Instructor: Procedure Note Radiology, Radiologist, MD - 05/29/2024 [place] [address] Cardiology Report Signed Patient: DIANA CHAMPION AMR#: [id number] : 1955cct:[id number] Age/Sex: 68 / FADM Date: 05/28/24 Loc: CARD Attending Dr: Naism Scales M.D. Ordering Physician: Nasim Scales M.D. Date of Service: 05/28/24 Procedure(s): CA echo doppler complete Accession Number(s): [id number] cc: Nasim Scales M.D.; Shaikh Eva Ohara Patient Name: DIANA CHAMPION MR#: [id number] : 1955 Exam Date: 05/28/2024 Ordering Doctor: [...] LIMON Signed By:05/29/24 1550 DD/ 1549 TD/TT: Respiratory Care Instructor: [facility] External Data Provider [facility] Final Result documented in this encounter Visit Diagnoses Not on filedocumented in this encounter Additional Health Concerns Assessment Noted Time PHQ-9 Depression Total Score: 7 11/02/20 23 3:03 PM EST documented as of this encounter Care Teams Hall Tender Relationship Specialty Start Date End Date Shaikh Ohara MD [address] [place] [phone] PCP - General Internal Medicine 12/28/23 06/09/24 Tapan Barboza MD [address] [place] [phone] PCP - General Family Medicine 06/10/24 Ariella Mathis DO [address] [place] [address] Referring Physician Neurology 01/02/24 Mae Reese NP [address] [place] [address] Nurse Practitioner Family Medicine 06/10/24 documented as of this encounter
--- OUTSIDE RECORDS SUMMARY | 2025-07-08 06:46 | XMS_ITS | Encounter Summary ---
Author Organization [facility] Address [address] [place] [address] Care Team Providers Care Paint Stripper Name Role Phone Ariella Mathis DO Unavailable [phone] Tapan Barboza MD Primary Care Provider [phone] Mae Reese FIELD SERVICER Unavailable [phone] Encounter Details Date Type Department Care Team (Late st Contact Info) Description 05/12/2025 Abstract [facility] [address] [place] [address] Kaylene López NP [address] [place] [address] Social History Tobacco Use Types Packs/Day Years [...] How often do you attend chur or judaism services? More than 4 times per year 11/25/2024 Do you belong to any clubs o r organizations such as yarsanism groups, unions, fraternal or athletic groups, or [...] any time in the past 12 [facility], were you homeless or living [...] [address] [place] [address] Denise Lazo MD [address] [place] [address] 07/17/2025 9:00 AM EDT Office Visit [facility] [address] [place] [address] Kaylene López NP [address] [place] [address] 12/15/2026 9:00 AM EST Office Visit [facility] [address] [place] [address] Yuri Bowers PA [address] [place] [address] documented as of this encounter [...] documented as of this encounter Care Teams Paint Stripper Relationship Specialty Start Date End Date Tapan Barboza MD [address] [place] [address] PCP - General Family Medicine 06/10/24 Ariella Mathis DO [address] [place] [address] Referring Physician Neurology 01/02/24 Mae Reese NP [address] [place] [address] Nurse Practitioner Family Medicine 06/10/24 documented as of this encounter
--- OUTSIDE RECORDS SUMMARY | 2025-07-08 06:47 | XMS_ITS | CCD ---
Author Organization [facility] Inform ion [facility] Care Team Providers Care Head Grinder Name Role Phone Steph Collier Attending Provider Unavailable Chantel Rainey Primary Care Provider Unavailabl e JoanaeHrberth Attending Provider Unavailable Unavailable Primary Care Provider Unavailabl e UNKNOWN, PHYSICIAN Referring Unavailable JOO LINN Attending Unavailable JOO LINN Admitting Unavailable UNKNOWN, PHYSICIAN Primary Care Unavailable Rena Hurd Unavailable Joana, Herberth Unavailable Gato Domingo Unavailable Steph Collier Attending Provider MD Gato Domingo Attending Provider [phone] MD Nicky Ohara Primary Care Provider Gilma [...] e FAWANASTASIA, MESSER H Primary Care Unavailable HUSON, DR BRITTANY Elizondo Consulting Unavailable DARWIN, DR [...] H Consulting Unavailable Steph Collier Attending Provider [phone] Ariella Mathis DO Unavailable Tapan Zazueta MD Primary Care Provider Aida Reese NP Unavailable [phone] MD Allan Lacey Attending Provider KELI Reese Primary Care [facility] er TAPAN ZAZUETA Primary Care Physician [phone] Allan Lacey MD Attending Provider Mary Ann BRANDT-Aida Pastrana Primary Care Provid er Allan Lacey Attending Unavailable Aida Reese Primary Care Unavaila Allan Fregoso Admitting Unavailable Allan Lacey Attending Unavailable Aida Reese Primary Care Unavaila Allan Fregoso Admitting Unavailable Reese TRAUMA NURSE, Aida Unavailable OMBALLI, MOHAMED Referring Unavailable RADHA, [...] Attending Unavailabl e REESEAIDA Attending Unavailabl e REESEIADA Attending Unavailabl e AICHHOLZ KAYLENE Attending Unavailable AICHHOLZ KAYLENE Attending Unavailable AICHHOLZ, KAYLENE Attending Unavailable AICHHOLZ, KAYLENE Attending Unavailable AICHHOLZ, KAYLENE Attending Unavailable REESEAIDA Attending Unavailabl e JAYNA GOODE Attending Unavailable REESEAIDA Referring Unavailabl e REESEAIDA Attending Unavailabl e Alicia DRAPER, Vandanarius Johnson Attending Unavailable Alicia DRAEPR, Andrius Alex Attending Unavailable Alicia DRAPER, Andrius Johnson Attending Unavailable Amalia Stephens Attending Unavailable Amalia Stephens Attending Unavailable Unavailable Unavailable Unavailable Allergies Allergy Classification Reported Allergen(s) Allergy Type Date of Onset Reaction(s) Facility (20 sources) fentaNYL; Translations: [fentanyl] Drug Allergy 07-07-20 Hallucinations (finding) [facility] (1 source) linezolid; Translations: [LINEZOLID] Drug Allergy 03-17-20 [facility] Repository (20 sources) Vancomycin; Translations: [VANCOMYCIN] Drug Allergy 03-17-20 Unknown [facility] Repository (14 sources) DENIES METAL SENSITITIVITY Propensity to adverse reactions 03-14-20 Unknown, Unknown Reaction [facility] Medications Current Medications Medication Drug Class(es) Dates [...] Inhalation, Daily Start Date: 10/15/24 Status: Ordered Jwtvmfborja-Pwrehvnsc-Dlzeqq (Trelegy Ellipta) 200-62.5-25 MCG/ACT aerosol powder (20 sources) End: 04-09-2025 take 1 puff(s) by mouth in the morning Pexhmubefbw-Mmnzzkald-Cehsen (Trelegy Ellipta) 200-62.5-25 MCG/ACT aerosol powder Take 1 puff by mouth in the morning. 04/09/2025 Discontinued (Ineffective) take 1 puff(s) by mo uth in the morning Rzxryzoxilz-Badhxappg-Otqxag (Trelegy El lipta) 200-62.5-25 MCG/ACT aerosol powder Take 1 puff by mouth in the morning. Active Yxvevlgpdfg-Lbmzkgfhx-Wnwhsp er (7 sources) Start: 03-14-2024 Hbanffiuktm-Kvtqsnrjm-Dpumxv er (Trelegy Ellipta) 200-62.5-25 mcg blister with device Active 1 INH INHALATION Daily March 13, 2024 11:00pm Start: 03-14-2024 Fluticasone-Um eclidin-Vilanter (Trelegy Ellipta) 200-62.5-25 mcg blister with device Active 1 INH INHALATION Daily March 14, 2024 12:00am Start: 12-08-2022 End: 03-14-2024 Pyjnbafnbwn-Ddbzxvtmn-Huxswc er (Trelegy Ellipta) 200-62.5-25 mcg blister with device Discontinued 1 INH INHALATION As Directed December 08, 2022 12:00am March 14, 2024 9:40am Start: 12-08-2022 End: 03-14-2024 Oulzvmcqong-Kxbuksccq-Ihcegd er (Trelegy Ellipta) 200-62.5-25 mcg blister with [...] days 22 g 06/05/2025 06/15/2025 Active nystatin 522181 unt/ml topical cream (7 sources) Polyene Antifungal [...] (Reorder) Start: 03-14-2024 take 1 capsule by [facility] twice daily Omeprazole 20 mg capsule,delayed release(DR/EC) Active 20 MG PO Twice daily March 13, 2024 11:00pm Start: 07-07-2017 End: 03-14-2024 take 1 tablet by mouth once daily Omeprazole 20 mg Tablet,Delayed Release (Dr/Ec) Discontinued 20 MG PO Daily July 06, 2017 11:00pm March 14, 2024 9:41am take 1 capsule by [facility] every twelve hours Omeprazole 20 MG 1 CAPSULE Orally TWICE A DAY Active take 1 capsule by [facility] once daily Omeprazole 20 MG 1 [...] BID, # 60 tab(s), Refills(s) 11, Pharmacy: [facility], 163, cm, 10/15/24 14:36:00 EST, [...] 1 puff(s) by inhalation twice daily Ipratropium [place] (Atrovent Hfa) 17 mcg/actuation Hfa Aerosol Inhaler [...] XR Hip - right 3 [place] [address] XRay Report Signed Patient: DIANA CHAMPION MR#: [id number] : 1955 Acct:[id number] Age/Sex: 69 / F ADM Date: 04/30/25 Loc: RAD Attending Dr: Jose Saucedo NP Ordering Physician: Jose Saucedo NP Date of Service: 04/30/25 Procedure(s): XR hip RT min 2V Accession Number(s): [id number] cc: Kaylene López NP; Jose Saucedo NP [address] [address] Patient Name: DIANA CHAMPION MRN: [id number] date: 1955 Sex: F Assigned Patient Location: RAD Current Patient Location: RAD Accession/Order Number: [id number] Exam Date: 04/30/2025 13:45 Report Date: 04/30/2025 [...] Jr., D.O. 04/30/2025 1:46 PM Dictation Location: [place] [address] Electronically authenticated by: [id number] Y Date: 04/30/2025 13:46 Dictated By: Marcos Medina M.D. 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: [facility] Radiology Radiologhernandez altman MD - 04/30/2025 [place] [address] XRay Report Signed Patient: DIANA CHAMPION MR#: [id number] : 1955 Acct:[id number] Age/Sex: 69 / F ADM Date: 04/30/25 Loc: NAKITA Attending Dr: Jose Saucedo NP Ordering Physician: Jose Saucedo NP Date of Service: 04/30/25 Procedure(s): XR hip RT min 2V Accession Number(s): [id number] cc: Kaylene López NP; Jose Saucedo NP The [address] [address] Patient Name: DIANA CHAMPION MRN: [id number] date: 1955 Sex: F Assigned Patient Location: RAD Current Patient Location: RAD Accession/Order Number: [id number] Exam Date: 04/30/2025 13:45 Report Date: 04/30/2025 [...] Jr., D.O. 04/30/2025 1:46 PM Dictation Location: [place] [address] Electronically authenticated by: [id number] Y Date: 04/30/2025 13:46 Dictated By: Marcos Medina M.D. 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 Required [...] IR BID. Pt currently rehabbing at [facility] [place] d/t double pneumonia. Has been there x1 week, plan is to hopefully return home within the next week or so. F/u 3 mos to assess efficacy. Ordered: Body Mass Index (BMI) documented 3008F Current tobacco non-user 1036F Depression Screening Negative 3352F E&M of Est. Patient Moderate 30-39 Min 04272 Medication list documented in medical record 1159F [...] Substance Abuse (more content not included)... Normal [facility] Comment on above: Result Comment: Elec tronically Signed By: JOSE ALEJANDRO MICHAUD, MAG Hester\.victorina\Date and Time Signed: 03/24/25 10:44 EDT MG Breast - bilateral Screen ingon 03-03-2025 [place] [address] Mammography Report Signed Patient: DIANA CHAMPION MR#: [id number] : 1955 Acct:[id number] Age/Sex: 69 / F ADM Date: 03/03/25 Loc: MAMMO Attending Dr: Kaylene López NP Ordering Physician: Kaylene López NP Results: Date of Service: 03/03/25 Follow Up: Procedure(s): MM screening mammo BI Accession Number(s): [id number] cc: Kaylene López NP Patient Name: DIANA CHAMPION MR#: [id number] : 1955 Exam Date: 03/03/2025 Ordering Doctor: [...] radiation, chemotherapy Family Cancers None LOCATION: [facility] BREAST COMPOSITION: The breasts are almost [...] M.D. Signed By: 03/03/251642 DD/ 41 TD/TT: Pipeline Maintenance Supervisor: [facility] RadiologyAdeeloghernandez altman MD - 03/03/2025 [place] [address] Mammography Report Signed Patient: DIANA CHAMPION MR#: [id number] : 1955 Acct:[id number] Age/Sex: 69 / F ADM Date: 03/03/25 Loc: MAMMO Attending Dr: Kaylene López NP Ordering Physician: Kaylene López NP Results: Date of Service: 03/03/25 Follow Up: Procedure(s): MM screening mammo BI Accession Number(s): [id number] cc: Kaylene López NP Patient Name: DIANA CHAMPION MR#: [id number] : 1955 Exam Date: 03/03/2025 Ordering Doctor: [...] radiation, chemotherapy Family Cancers None LOCATION: [facility] BREAST COMPOSITION: The breasts are almost [...] M.D. Signed By: 03/03/251642 DD/ 41 TD/TT: Pipeline Maintenance Supervisor: [facility] Radiology Study observation (narrative) [facility] MG Breast - bilateral Screen ingOrdered By: Radiologist Radiology on 03-03-2025 [facility] Work Phone: Office Visiton 01-23-2025 Follow-up visit [id number] Nell Champion 1955 F Date Provider Department Center 01/23/2025 271-LOYDA, HETAL CARD [facility] Family History Problem Relation Age of Onset Heart failure Mother Heart disease Father Family Status - Relation Status Age at Mother Father Level of Service:96254 ID OFFICE/OUTPATIENT ESTABLISHED LOW MDM 20 MIN Normal [facility] Laboratory - Microbiology an d Antimicrobial susceptibilityon 01-02-2025 SARS-CoV-2 (COVID-19) RNA KAYLEE+probe Ql (Unsp spec) Negative [facility] No Panel Informationon 01-02 FLU A Negative [facility] FLU B Negative [facility] Interpretation and review of laboratory results Normal [facility] XR Hip - right 3 [facility] Result: AP and Lateral right hip No acute fracture Mild SI joint arthritic changes Pt has severe arthritis to right hip joint with subchondral cyst and sclerosis to femoral head and acetabulum. Stable hardware left hip on AP view Impression: Severe right hip arthritis. [facility] Radiology Study observation (narrative) [facility] XR Knee - right 1 or [...] [facility] [place] Radiology Study observation (narrative) [facility] No Panel Informationon 12-13 Complexity: simple Destruction method: cryotherapy Informed consent: discussed and consent obtained Informed consent comment: The risks of the procedure were discussed, including, but not limited to risks of scarring, darker or facilities maintenance supervisor pigmentary changes, recurrence, infection, and incomplete removal [...] or tenderness. Additional details: Previous accession number: [id number] [facility] No Panel InformationOrdered By: Pat Mcfarland on 12-13-2024 [facility] [place] Work Phone: Abstracton 10-24-2024 Abstract [id number] Nell Champion 1955 F Date Provider Department Center 10/24/2024 EMELIA MORALES ONC DCC Family History Problem Relation Age of Onset Heart failure Mother Heart disease Father Family Status - Relation Status Age at Mother Father Normal [facility] C Urineon 10-18-2024 Bacteria identified Cx Nom [...] Locations R1: This test [facility] performed at: [email or web address], [address] [place] [address], [address]- , [place], Normal [facility] Comment on above: Performed By: #### 2 [id number] #### [facility] [address] [place] [address] Ambulatory Visit Summaryon 1 12-16-2023 Ambulatory Visit [...] MAG BLOUNT PA-C Where: [facility] [address] [place] [id number]- Medications What How Much When Instructions Unchanged [...] for choosing us for your care. Latanya [facility] No Panel Informationon 10-11 Type of [...] [place] 36on 09-20-2024 36 Faxed to [facility]. Ticker put in for Nov 2024 for patient to be scheduled with Dr. Church. [facility] 36on 09-12-2024 36 Patient called requesting clearance prior to cataract surgery. 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 Please advise. Thanks. [facility] EPITHELIAL CELLSon 4 Epithelial cells LM Ql (Urine sed) Epithelial Cells Few [facility] No Panel Informationon 08-13 [facility] RESULT 1on 08-13-2024 RESULT 1 Result 1 Moderate budding yeast present. [facility] RESULT 2on 08-13-2024 RESULT 2 Result 2 Few gram positive cocci [facility] RESULT 3on 08-13-2024 RESULT 3 Result 3 TRAUMA NURSE [facility] RESULT 4on 08-13-2024 RESULT 4 Result 4 TRAUMA NURSE [facility] WHITE BLOOD CELLSon 08-13-20 24 WHITE BLOOD CELLS White Blood Cells [facility] WHITE BLOOD CELLS Few [facility] ALL CBC WITH AUTO DIFFon BASOPHILS ABSOLUTE AUTO 0.1 [facility] Basophils/100 WBC (Bld) 0.5 % 0.2 - 2.0 % [facility] Eosinophils/100 WBC (Bld) 1.5 % 0.9 - 7.0 % [facility] Erythrocyte distribution width (RBC) [Ratio] 13.0 % 11.0 - 15.0 % [facility] Hematocrit (Bld) [Volume fraction] 39.0 % 36.0 - 48.0 % [facility] Hemoglobin (Bld) [Mass/Vol] 12.2 g/dL 12.0 - 16.0 g/dL [facility] IMMATURE GRANULOCYTES ABS AUTO 0.22 High [facility] Immature granulocytes/100 WBC (Bld) 2.4 % High 0.0 - 0.5 % [facility] Interpretation and review of laboratory results Abnormal [facility] LYMPHOCYTES ABSOLUTE AUTO 1.6 [facility] Lymphocytes/100 WBC (Bld) 17.2 % Low 20.5 - 60.0 % [facility] MCH (RBC) [Entitic mass] 29.7 pg 26.7 - 34.0 pg [facility] MCHC (RBC) [Mass/Vol] 31.3 g/dL 29.9 - 35.2 g/dL [facility] MCV (RBC) [Entitic vol] 94.9 fL 81.0 - 99.0 fL [facility] MONOCYTES ABSOLUTE AUTO 0.8 [facility] Monocytes/100 WBC (Bld) 8.3 % 1.7 - 12.0 % [facility] NEUTROPHILS ABSOLUTE AUTO 6.4 [facility] Neutrophils/100 WBC (Bld) 70.1 % 43.0 - 75.0 % [facility] Platelet mean volume (Bld) [Entitic vol] 8.8 fL Low 9.5 - 13.5 fL [facility] TB EO # 0.1 [facility] TB PLT 266 [facility] TB RBC 4.11 Low [facility] TB WBC 9.1 [facility] Telemedicineon 07-11-2024 Telemedicine [id number] Nell Champion 1955 F Date Provider Department Center 07/11/2024 EMELIA MORALES DCC ONC DCC Family History Problem Relation Age of Onset Heart failure Mother Heart disease Father Family Status - Relation Status Age at Mother Father Level of Service:73509 ID PHYS/QHP TELEPHONE EVALUATION 21-30 MIN () Reason for Visit and Comments: Telehealth Phone Visit [542] - Tracheobronchomalacia follow up per Dr Canseco. [facility] HPon 07-02-2024 H&P reviewed. The patient [...] deficit PSYCH: appropriate mood, affect, and judgement. [facility] NURSNOTEon 07-02-2024 NURSNOTE Follow up at [facility] with Matthew Vargas May resume a Regular Diet and home medications. Normal [facility] NURSNOTE Bronchoscopy Finding s: Tracheobronchomalacia [facility] Telephoneon 06-27-2024 Telephone [id number] Nell Champion 1955 F Date Provider Department Center 06/27/2024 910-SOURAV ESCOBAR DCC ONC DCC Family History Problem Relation Age of Onset Heart failure Mother Heart disease Father Family Status - Relation Status Age at Mother Father [facility] Prep for Procedureon 024 Prep for Procedure [id number] Nell Champion 1955 F Date Provider Department Center 06/26/2024 383-EMELIA YOO [facility] PREOP [place] [facility] Family History Problem Relation Age of Onset Heart failure Mother Heart disease Father Family Status - Relation Status Age at Mother Father [facility] HPon 06-25-2024 HP ---- -------- Attestation signed [...] Age: 68 y.o. : 1955 Account No.: [id number] Referring physician: Dr. Bo Mcclain Chief complaint: Recurreny pneumonia HPI Diana Champion is a 68 y.o. female with PMHx of reportedly COPD, chronic hypoxic respiratory failure on 2L home O2 who is presenting to clinic as a new patient after being referred by Dr. Bo Baker of [facility]. Patient has been admitted 4 times [...] years. 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 Her family history is positive for COPD [...] Past Medical History: Diagnosis Date Asthma Cancer ([facility]) COPD (chronic obstructive pulmonary disease) ([facility]) Coronary artery disease GERD (gastroesophageal reflux disease) [...] mouth every other day. Yes Historical Provider, crfwrjhivjg-tqbgjeidx-tl lanter 100-62.5-25 mcg blister with device Yes [...] ER ta (more content not included)... Normal [facility] Telemedicineon 06-25-2024 Telemedicine [id number] Nell Champion 1955 Date Provider Department Center 06/25/2024 Nicholas-EMELIA YOO [facility] ONC DCC Family History Problem Relation Age of Onset Heart failure Mother Heart disease Father Family Status - Relation Status Age at Mother Father Level of Service:69541 ID PHYS/QHP TELEPHONE EVALUATION 21-30 MIN () Reason for Visit and Comments: New Patient [632] - TRAUMA NURSE REFERRED BY BO 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 CT DONE 04-11-24 AND 06-07-24 AT [facility]. RECORDS SCANNED INTO MEDIA. FILMS REQUESTED- requested 3 times and [employer] IS DOWN. Could not get films. Normal [facility] Office Visiton 05-13-2024 Follow-up visit [id number] Nell Champion 1955 F Date Provider Department Center 05/13/2024 Siddharth-HETAL CHURCH [facility] Family History Problem Relation Age of Onset Heart failure Mother Heart disease Father Family Status - Relation Status Age at Mother Father Level of Service:23444 ID OFFICE/OUTPATIENT ESTABLISHED MOD MDM 30 MIN [facility] Erythrocyte distribution wid th Auto (RBC) [Ratio]on 03-06-2024 Erythrocyte distribution width (RBC) [Ratio] 13.2 % 11.0-15.0 [facility] Estimated glomerular filtrat ion rate (GFR) non- Americanon 03-06-2024 GFR/1.73 sq M.predicted among non-blacks MDRD (S/P/Bld) [Vol rate/Area] 57 mL/min/{1.73_m2} >=60 [facility] Hematocrit Auto (Bld) [Volum e fraction]on 03-06-2024 Hematocrit (Bld) [Volume fraction] 38.7 % 36.0-48.0 [facility] Hemoglobin [Mass/volume] in Bloodon 03-06-2024 Hemoglobin (Bld) [Mass/Vol] 12.2 g/dL 12.0-16.0 [facility] Laboratory - Chemistry and C hemistry - challengeon 03-06-2024 Albumin [Mass/Vol] 3.0 g/dL 3.4-5.0 [facility] Calcium [Mass/Vol] 8.8 mg/dL 8.5-10.1 [facility] Chloride [Moles/Vol] 104 mmol/L 98-107 [facility] CO2 [Moles/Vol] 32.2 mmol/L 21.0-32.0 [facility] Creatinine [Mass/Vol] 0.97 mg/dL 0.55-1.02 [facility] GFR/1.73 sq M.predicted MDRD (S/P/Bld) [Vol rate/Area] mL/min/{1.73_m2} >=60 [facility] Glucose [Mass/Vol] 67 mg/dL 74-106 [facility] Magnesium [Mass/Vol] 1.9 mg/dL 1.8-2.4 [facility] Potassium [Moles/Vol] 3.4 mmol/L 3.5-5.1 [facility] Sodium [Moles/Vol] 143 mmol/L 136-145 [facility] Urate [Mass/Vol] 5.0 mg/dL 2.6-6.0 [facility] Urea nitrogen [Mass/Vol] 16.0 mg/dL 7.0-18.0 [facility] Urea nitrogen/Creatinine [Mass ratio] 16.5 mg/mg [facility] Leukocytes [#/volume] correc melanie for nucleated erythrocytes in Blood by Automated counon 03-06-2024 WBC corrected for nucl RBC Auto (Bld) [#/Vol] 8.1 10 3/uL 4.0-11.0 [facility] MCH Auto (RBC) [Entitic mass ]on 03-06-2024 MCH (RBC) [Entitic mass] 30.4 pg 26.7-34.0 [facility] MCHC Auto (RBC) [Mass/Vol]on 03-06-2024 MCHC (RBC) [Mass/Vol] 31.5 g/dL 29.9-35.2 [facility] MCV Auto (RBC) [Entitic vol] on 03-06-2024 MCV (RBC) [Entitic vol] 96.5 fL 81.0-99.0 [facility] No Panel Informationon 03-06 Urine Random Creatinine 63.27 mg/dL 20.00-300.00 [facility] Urine Random Total Protein <6.0 mg/dL <=11.9 [facility] 25-Hydroxy Vitamin D Total 37.1 ng/mL [facility] Comment on above: <20 ng/mL Vit D defi cient20-<30 ng/mL Vit D insuuauirqnn67-821 ng/mL Vit D sufficient>100 ng/mL Potential Toxicity Parathyroid Hormone (Intact) 36 pg/mL 15-65 [facility] Comment on above: Performed at: [address] [id number] Director: Raphael Marrero PhD, Phone: [phone] Phosphorus Level 3.2 mg/dL 2.6-4.7 [facility] Platelet mean volume Auto (B ld) [Entitic vol]on 03-06-2024 Platelet mean volume (Bld) [Entitic vol] 9.1 fL 9.5-13.5 [facility] Platelets Auto (Bld) [#/Vol] on 03-06-2024 Platelets (Bld) [#/Vol] 247 10 3/uL 150-450 [facility] RBC Auto (Bld) [#/Vol]on RBC (Bld) [#/Vol] 4.01 10 6/uL 4.20-5.40 [facility] Serum or plasma anion gap de terminationon 03-06-2024 Anion gap [Moles/Vol] 10.2 mmol/L [facility] SYMPTOMATIC COVID-19 ANTIGEN on 04-04-2023 EUA Statement SEE BELOW Normal [facility] Comment on above: Result Comment: This [...] sooner. Performed By: #### C VDAGS #### [facility] [address] [place] [address] Dr. Shayne Roldan SARS-CoV-2 (COVID-19) RNA KAYLEE+probe Ql (Unsp spec) Positive Abnormal NEGATIVE [facility] Comment on above: Performed By: #### C VDAGS #### [facility] [address] [place] [address] Dr. Shayne Roldan XR LSPINE 2_3 VIEWSon [...] STEPH GRANADOS Date: 2023-03-24 12:52 Normal [facility] PTH INTACTon 02-27-2023 PTH, Intact 87 pg/mL Critically high 15-65 [facility] Comment on above: Performed By: #### P THINT #### [facility] [address] [place] [address] Dr. Shayne Roldan HEMOGRAM AND PLATELon 2022 Hematocrit (Bld) [Volume fraction] 44.4 % Normal 36.0-48.0 [facility] Comment on above: Performed By: #### H H #### [facility] [address] [place] [address] Dr. Shayne Roldan Hemoglobin (Bld) [Mass/Vol] 14.5 g/dL Normal 12.0-16.0 [facility] Comment on above: Performed By: #### H H #### [facility] [address] [place] [address] Dr. Shayne Roldan MCH (RBC) [Entitic mass] 30.3 pg Normal 26.7-34.0 [facility] Comment on above: Performed By: #### H H #### [facility] [address] [place] [address] Dr. Shayne Roldan MCHC (RBC) [Mass/Vol] 32.7 g/dL Normal 29.9-35.2 [facility] Comment on above: Performed By: #### H H #### [facility] [address] [place] [address] Dr. Shayne Roldan MCV (RBC) [Entitic vol] 92.9 fL Normal 81.0-99.0 [facility] Comment on above: Performed By: #### H H #### [facility] [address] [place] [address] Dr. Shayne Roldan PLT 367 103/ul Normal 150-450 [facility] Comment on above: Performed By: #### H H #### [facility] [address] [place] [address] Dr. Shayne Roldan RBC 4.78 106/ul Normal 4.20-5.40 [facility] Comment on above: Performed By: #### H H #### [facility] [address] [place] [address] Dr. Shayne Roldan WBC 9.9 103/ul Normal 4.0-11.0 [facility] Comment on above: Performed By: #### H H #### [facility] [address] [place] [address] Dr. Shayne Roldan MAGNESIUMon 02-25-2023 Magnesium [Mass/Vol] 1.6 mg/dL Critically low 1.8-2.4 [facility] Comment on above: Performed By: #### M G, RENAL, URIC #### [facility] [address] [place] [address] Dr. Shayne Roldan RENAL FUNCTION PANELon 02-25 Albumin [Mass/Vol] 3.4 g/dL Normal 3.4-5.0 [facility] Comment on above: Performed By: #### M G, RENAL, URIC #### [facility] [address] [place] [address] Dr. Shayne Roldan Calcium [Mass/Vol] 8.7 mg/dL Normal 8.5-10.1 [facility] Comment on above: Performed By: #### M G, RENAL, URIC #### [facility] [address] [place] [address] Dr. Shayne Roldan Chloride [Moles/Vol] 104 mmol/L Normal 98-107 [facility] Comment on above: Performed By: #### M G, RENAL, URIC #### [facility] [address] [place] [address] Dr. Shayne Roldan CO2 [Moles/Vol] 25.9 mmol/L Normal 21.0-32.0 [facility] Comment on above: Performed By: #### M G, RENAL, URIC #### [facility] [address] [place] [address] Dr. Shayne Roldan Creatinine [Mass/Vol] 1.19 mg/dL Critically high 0.55-1.02 [facility] Comment on above: Performed By: #### M G, RENAL, URIC #### [facility] [address] [address] [address] Shayne Roldan EGFR-AF DOMINICAN 55 mL/min/1.73m2 Critically low >=60 [facility] Comment on above: Performed By: #### M G, RENAL, URIC #### [facility] [address] [place] [address] Dr. Shayne Roldan EGFR-NON AF DOMINICAN 45 mL/min/1.73m2 Critically low >=60 [facility] Comment on above: Performed By: #### M G, RENAL, URIC #### [facility] [address] [place] [address] Dr. Shayne Roldan Glucose [Mass/Vol] 193 mg/dL Critically high 74-106 [facility] Comment on above: Performed By: #### M G, RENAL, URIC #### [facility] [address] [place] [address] Dr. Shayne Roldan Phosphate [Mass/Vol] 3.2 mg/dL Normal 2.6-4.7 [facility] Comment on above: Performed By: #### M G, RENAL, URIC #### [facility] [address] [place] [address] Dr. Shayne Roldan Potassium [Moles/Vol] 3.9 mmol/L Normal 3.5-5.1 [facility] Comment on above: Performed By: #### M G, RENAL, URIC #### [facility] [address] [place] [address] Dr. Shayne Roldan Sodium [Moles/Vol] 140 mmol/L Normal 136-145 [facility] Comment on above: Performed By: #### M G, RENAL, URIC #### [facility] [address] [place] [address] Dr. Shayne Roldan Urea nitrogen [Mass/Vol] 17.0 mg/dL Normal 7.0-18.0 [facility] Comment on above: Performed By: #### M G, RENAL, URIC #### [facility] [address] [place] [address] Dr. Shayne Roldan UA RANDOM W/MICROSCOPICon BACTERIA TRACE Abnormal NONE SEEN [facility] Comment on above: Performed By: #### M G, RENAL, URIC #### [facility] [address] [address] [address] Shayne Roldan Bilirubin Ql (U) Negative Normal NEGATIVE [facility] Comment on above: Performed By: #### M G, RENAL, URIC #### [facility] [address] [address] [address] Shayne Roldan CAST NONE SEEN Normal NONE SEEN [facility] Comment on above: Performed By: #### M G, RENAL, URIC #### [facility] [address] [address] [address] Shayne Roldan Clarity (U) CLEAR Normal CLEAR [facility] Comment on above: Performed By: #### M G, RENAL, URIC #### [facility] [address] [address] [address] Shayne Roldan Color (U) LT. YELLOW Normal YELLOW [facility] Comment on above: Performed By: #### M G, RENAL, URIC #### [facility] [address] [address] [address] Shayne Roldan Crystals LM Nom (Urine sed) NONE SEEN Normal NONE SEEN [facility] Comment on above: Performed By: #### M G, RENAL, URIC #### [facility] [address] [place] [address] Dr. Shayne Roldan Epithelial cells LM Ql (Urine sed) RARE Normal NONE SEEN /RARE [facility] Comment on above: Performed By: #### M G, RENAL, URIC #### [facility] [address] [address] [address] Shayne Roldan Glucose Ql (U) Negative Normal NEGATIVE [facility] Comment on above: Performed By: #### M G, RENAL, URIC #### [facility] [address] [address] [address] Shayne Roldan Hemoglobin Ql (U) Negative Normal NEGATIVE [facility] Comment on above: Performed By: #### M G, RENAL, URIC #### [facility] [address] [address] [address] Shayne Roldan Ketones Ql (U) Negative Normal NEGATIVE [facility] Comment on above: Performed By: #### M G, RENAL, URIC #### [facility] [address] [address] [address] Shayne Roldan LEUKOCYTES Negative Normal NEGATIVE [facility] Comment on above: Performed By: #### M G, RENAL, URIC #### [facility] [address] [address] [address] Shayne Roldan MUCOUS NONE SEEN Normal NONE SEEN [facility] Comment on above: Performed By: #### M G, RENAL, URIC #### [facility] [address] [address] [address] Shayne Roldan Nitrite Ql (U) Negative Normal NEGATIVE [facility] Comment on above: Performed By: #### M G, RENAL, URIC #### [facility] [address] [place] [address] Dr. Shayne Roldan pH (U) 5.0 [pH] Normal 5-9 [facility] Comment on above: Performed By: #### M G, RENAL, URIC #### [facility] [address] [address] [address] Shayne Roldan RBC 0-2 Normal 0-2 [facility] Comment on above: Performed By: #### M G, RENAL, URIC #### [facility] [address] [place] [address] Dr. Shayne Roldan SPEC GRAVITY 1.025 Normal 1.005-<=1.02 5 [facility] Comment on above: Performed By: #### M G, RENAL, URIC #### [facility] [address] [address] [address] Shayne Roldan UA PROTEIN Negative Normal NEGATIVE/ TRACE [facility] Comment on above: Performed By: #### M G, RENAL, URIC #### [facility] [address] [address] [address] Shayne Roldan Urobilinogen Qn (U) 0.2 {Rogelio'U}/dL Normal 0.2 - 1. 0 [facility] Comment on above: Performed By: #### M G, RENAL, URIC #### [facility] [address] [address] [address] Shayne Roldan WBC 0-2 Abnormal NONE SEEN [facility] Comment on above: Performed By: #### M G, RENAL, URIC #### [facility] [address] [address] [address] Shayen Roldan URIC ACID SERUMon 02-25-2023 Urate [Mass/Vol] 6.1 mg/dL Critically high 2.6-6.0 [facility] Comment on above: Performed By: #### M G, RENAL, URIC #### [facility] [address] [address] [address] Shayne Roldan URINE T PROTEIN CREAT RATIOo n 02-25-2023 Protein (U) [Mass/Vol] 13.0 mg/dL Critically high <=12.0 [facility] Comment on above: Performed By: #### M G, RENAL, URIC #### [facility] [address] [place] [address] Dr. Shayne Roldan UR PROT CREAT RAT 0.16 Normal [facility] Comment on above: Performed By: #### M G, RENAL, URIC #### [facility] [address] [address] [address] Shayne Roldan URINE CREAT 83.60 mg/dL Normal 20.00-300.[address] [facility] Comment on above: Performed By: #### M G, RENAL, URIC #### [facility] [address] [place] [address] Dr. Shayne Roldan VITAMIN D 25 OHon 02-25-2023 VIT D 25-OH 41.6 ng/mL Normal [facility] Comment on above: Performed By: #### M G, RENAL, URIC #### [facility] [address] [place] [address] Dr. Shayne Roldan VIT D RANGES SEE BELOW Normal [facility] Comment on above: Result Comment: <20 ng/mL Vit D deficient 20 - <30 ng/mL Vit D insufficient 30 - 100 ng/mL Vit D sufficient >100 ng/mL Potential Toxicity Performed By: #### M G, RENAL, URIC #### [facility] [id number] Shayne Roldan XR CHEST 2 Von [...] by: BRITTANY GALDAMEZ Date: 2023-02-22 16:15 Normal [facility] MAMM SCREEN 3D PRATEEK CADon 12-15-2022 MAMM SCREEN 3D PRATEEK CAD Patient: DIANA CHAMPION Exam Date: 12/15/2022 : 1955 Gender:F Ordering : DR JACK HALL . Admission #: [id number] Family : Order #: [id number] CLICK HERE TO VIEW EXAM RADIOLOGY REPORT PROCEDURE: MAMMOGRAM SCREENING 3D BILATERAL CAD COMPARISON: MAMM SCREEN 3D PRATEEK CAD, 11/26/2021. INDICATIONS: Calculator Name NCI Breast Cancer Risk Assessment Tool 5 Year Breast Cancer Risk 1.20% Lifetime Breast Cancer Risk 4.40% Personal Breast Cancer No Personal Ovarian Cancer No Treatments Excision, radiation, chemotherapy Family Cancers None LOCATION: [facility] BREAST COMPOSITION: Almost entirely fatty. FINDINGS: [...] on 12/15/2022 at 10:51 Normal [facility] XR DEXA BONE DENSITYon 12-15 [...] by: STEPH GRANADOS Date: 2022-12-15 09:50 Normal [facility] PAP ACOG PANEL 2: 30 to 65on 11-16-2022 . . Normal [facility] Comment on above: Performed By: #### [id number] #### [facility] [address] [address] [address] Shayne Roldan Age Gdln ACOG Testing Comment Normal [facility] Comment on above: Result Comment: <21 or >65 or no age provided Performed By: #### [id number] #### [facility] [address] [address] [address] Shayne Roldan DIAGNOSIS: Comment [facility] Comment on above: Result Comment: NEGA TIVE FOR INTRAEPITHELIAL LESION OR MALIGNANCY. Performed By: #### [id number] #### [facility] [address] [address] [address] Shayne Roldan Methodology: Comment [facility] Comment on above: Result Comment: This liquid based ThinPrep(R) pap test was screened with the use of an image guided system. Performed By: #### [id number] #### [facility] [address] [address] [address] Shayne Roldan Note: Comment [facility] Comment on above: Result Comment: The Pap smear is a screening test designed to aid in the detection of premalignant and malignant conditions of the uterine cervix. It is not a diagnostic procedure and should not be used as the sole means of detecting cervical cancer. Both false-positive and false-negative reports do occur. . Performed By: #### [id number] #### [facility] [address] [address] [address] Shayne Roldan Performed by: Comment Normal [facility] Comment on above: Result Comment: Onur Aguilar Collection Systems Technician (ASCP) Performed By: #### [id number] #### [facility] [address] [address] [address] Shayne Roldan Specimen adequacy: Comment Normal [facility] Comment on above: Result Comment: Sati sfactory for evaluation. Endocervical and/or squamous metaplastic cells (endocervical component) are present. Performed By: #### [id number] #### [facility] [address] [place] [address] Dr. Shayne Roldan RENAL FUNCTION PANELon 08-19 Albumin [Mass/Vol] 3.4 g/dL Normal 3.4-5.0 [facility] Comment on above: Performed By: #### M G, RENAL, URIC #### [facility] [address] [address] [address] Shayne Roldan Calcium [Mass/Vol] 8.4 mg/dL Critically low 8.5-10.1 [facility] Comment on above: Performed By: #### M G, RENAL, URIC #### [facility] [address] [address] [address] Shayne Roldan Chloride [Moles/Vol] 103 mmol/L Normal 98-107 [facility] Comment on above: Performed By: #### M G, RENAL, URIC #### [facility] [address] [address] [address] Shayne Roldan CO2 [Moles/Vol] 27.8 mmol/L Normal 21.0-32.0 [facility] Comment on above: Performed By: #### M G, RENAL, URIC #### [facility] [address] [address] [address] Shayne Roldan Creatinine [Mass/Vol] 1.02 mg/dL Normal 0.55-1.02 [facility] Comment on above: Performed By: #### M G, RENAL, URIC #### [facility] [address] [address] [address] Shayne Roldan EGFR-AF DOMINICAN >60 Normal >=60 [facility] Comment on above: Performed By: #### M G, RENAL, URIC #### [facility] [address] [address] [address] Shayne Roldan EGFR-NON AF DOMINICAN 54 mL/min/1.73m2 Critically low >=60 [facility] Comment on above: Performed By: #### M G, RENAL, URIC #### [facility] [address] [address] [address] Shayne Roldan Glucose [Mass/Vol] 110 mg/dL Critically high 74-106 [facility] Comment on above: Performed By: #### M G, RENAL, URIC #### [facility] [address] [place] [address] Dr. Shayne Roldan Phosphate [Mass/Vol] 2.3 mg/dL Critically low 2.6-4.7 [facility] Comment on above: Performed By: #### M G, RENAL, URIC #### [facility] [address] [address] [address] Shayne Roldan Potassium [Moles/Vol] 3.2 mmol/L Critically low 3.5-5.1 [facility] Comment on above: Performed By: #### M G, RENAL, URIC #### [facility] [address] [address] [address] Shayne Roldan Sodium [Moles/Vol] 138 mmol/L Normal 136-145 [facility] Comment on above: Performed By: #### M G, RENAL, URIC #### [facility] [address] [address] [address] Shayne Roldan Urea nitrogen [Mass/Vol] 14.0 mg/dL Normal 7.0-18.0 [facility] Comment on above: Performed By: #### M G, RENAL, URIC #### [facility] [address] [address] [address] Shayne Roldan PTH INTACTon 08-06-2022 PTH, Intact 40 pg/mL Normal 15-65 [facility] Comment on above: Performed By: #### M G, RENAL, URIC #### [facility] [address] [place] [address] Dr. Shayne Roldan HEMOGRAM AND PLATELon 2021 Hematocrit (Bld) [Volume fraction] 39.8 % Normal 36.0-48.0 [facility] Comment on above: Performed By: #### M G, RENAL, URIC #### [facility] [address] [place] [address] Dr. Shayne Roldan Hemoglobin (Bld) [Mass/Vol] 13.4 g/dL Normal 12.0-16.0 [facility] Comment on above: Performed By: #### M G, RENAL, URIC #### [facility] [address] [place] [address] Dr. Shayne Roldan MCH (RBC) [Entitic mass] 30.5 pg Normal 26.7-34.0 [facility] Comment on above: Performed By: #### M G, RENAL, URIC #### [facility] [address] [place] [address] Dr. Shayne Roldan MCHC (RBC) [Mass/Vol] 33.7 g/dL Normal 29.9-35.2 [facility] Comment on above: Performed By: #### M G, RENAL, URIC #### [facility] [address] [place] [address] Dr. Shayne Roldan MCV (RBC) [Entitic vol] 90.5 fL Normal 81.0-99.0 [facility] Comment on above: Performed By: #### M G, RENAL, URIC #### [facility] [address] [place] [address] Dr. Shayne Roldan PLT 299 103/ul Normal 150-450 [facility] Comment on above: Performed By: #### M G, RENAL, URIC #### [facility] [address] [place] [address] Dr. Shayne Roldan RBC 4.40 106/ul Normal 4.20-5.40 [facility] Comment on above: Performed By: #### M G, RENAL, URIC #### [facility] [address] [address] [address] Shayne Roldan WBC 8.8 103/ul Normal 4.0-11.0 [facility] Comment on above: Performed By: #### M G, RENAL, URIC #### [facility] [address] [address] [address] Shayne Roldan MAGNESIUMon 08-05-2022 Magnesium [Mass/Vol] 1.5 mg/dL Critically low 1.8-2.4 [facility] Comment on above: Performed By: #### M G, RENAL, URIC #### [facility] [address] [address] [address] Shayne Roldan RENAL FUNCTION PANELon 08-05 Albumin [Mass/Vol] 3.5 g/dL Normal 3.4-5.0 [facility] Comment on above: Performed By: #### M G, RENAL, URIC #### [facility] [address] [address] [address] Shayne Roldan Calcium [Mass/Vol] 8.4 mg/dL Critically low 8.5-10.1 [facility] Comment on above: Performed By: #### M G, RENAL, URIC #### [facility] [address] [address] [address] Shayne Roldan Chloride [Moles/Vol] 101 mmol/L Normal 98-107 [facility] Comment on above: Performed By: #### M G, RENAL, URIC #### [facility] [address] [address] [address] Shayne Roldan CO2 [Moles/Vol] 29.5 mmol/L Normal 21.0-32.0 [facility] Comment on above: Performed By: #### M G, RENAL, URIC #### [facility] [address] [address] [address] Shayne Roldan Creatinine [Mass/Vol] 1.04 mg/dL Critically high 0.55-1.02 [facility] Comment on above: Performed By: #### M G, RENAL, URIC #### [facility] [address] [address] [address] Shayne Roldan EGFR-AF DOMINICAN >60 Normal >=60 [facility] Comment on above: Performed By: #### M G, RENAL, URIC #### [facility] [address] [address] [address] Shayne Roldan EGFR-NON AF DOMINICAN 53 mL/min/1.73m2 Critically low >=60 [facility] Comment on above: Performed By: #### M G, RENAL, URIC #### [facility] [address] [address] [address] Shayne Roldan Glucose [Mass/Vol] 92 mg/dL Normal 74-106 [facility] Comment on above: Performed By: #### M G, RENAL, URIC #### [facility] [address] [place] [address] Dr. Shayne Roldan Phosphate [Mass/Vol] 2.4 mg/dL Critically low 2.6-4.7 [facility] Comment on above: Performed By: #### M G, RENAL, URIC #### [facility] [address] [address] [address] Shayne Roldan Potassium [Moles/Vol] 2.8 mmol/L Critically low 3.5-5.1 [facility] Comment on above: Performed By: #### M G, RENAL, URIC #### [facility] [address] [address] [address] Shayne Roldan Sodium [Moles/Vol] 137 mmol/L Normal 136-145 [facility] Comment on above: Performed By: #### M G, RENAL, URIC #### [facility] [address] [place] [address] Dr. Shayne Roldan Urea nitrogen [Mass/Vol] 10.0 mg/dL Normal 7.0-18.0 [facility] Comment on above: Performed By: #### M G, RENAL, URIC #### [facility] [address] [address] [address] Shayne Roldan UA RANDOM W/MICROSCOPICon BACTERIA SMALL Abnormal NONE SEEN [facility] Comment on above: Performed By: #### U AMIC #### [facility] [address] [address] [address] Shayne Roldan Bilirubin Ql (U) Negative Normal NEGATIVE [facility] Comment on above: Performed By: #### U AMIC #### [facility] [address] [address] [address] Shayne Roldan CAST NONE SEEN Normal NONE SEEN [facility] Comment on above: Performed By: #### U AMIC #### [facility] [address] [address] [address] Shayne Roldan Clarity (U) CLEAR Normal CLEAR [facility] Comment on above: Performed By: #### U AMIC #### [facility] [address] [address] [address] Shayne Roldan Color (U) LT. YELLOW Normal YELLOW [facility] Comment on above: Performed By: #### U AMIC #### [facility] [address] [address] [address] Shayne Roldan Crystals LM Nom (Urine sed) NONE SEEN Normal NONE SEEN [facility] Comment on above: Performed By: #### U AMIC #### [facility] [address] [address] [address] Shayne Roldan Epithelial cells LM Ql (Urine sed) FEW Abnormal NONE SEEN /RARE [facility] Comment on above: Performed By: #### U AMIC #### [facility] [address] [address] [address] Shayne Roldan Glucose Ql (U) Negative Normal NEGATIVE [facility] Comment on above: Performed By: #### U AMIC #### [facility] [address] [address] [address] Shayne Roldan Hemoglobin Ql (U) Negative Normal NEGATIVE [facility] Comment on above: Performed By: #### U AMIC #### [facility] [address] [address] [address] Shayne Roldan Ketones Ql (U) Negative Normal NEGATIVE [facility] Comment on above: Performed By: #### U AMIC #### [facility] [address] [address] [address] Shayne Roldan LEUKOCYTES TRACE Abnormal NEGATIVE [facility] Comment on above: Performed By: #### U AMIC #### [facility] [address] [place] [address] Dr. Shayne Roldan MUCOUS NONE SEEN Normal NONE SEEN [facility] Comment on above: Performed By: #### U AMIC #### [facility] [address] [address] [address] Shayne Roldan Nitrite Ql (U) Negative Normal NEGATIVE [facility] Comment on above: Performed By: #### U AMIC #### [facility] [address] [place] [address] Dr. Shayne Roldan pH (U) 6.0 [pH] Normal 5-9 [facility] Comment on above: Performed By: #### U AMIC #### [facility] [address] [place] [address] Dr. Shayne Roldan RBC NONE SEEN Abnormal 0-2 [facility] Comment on above: Performed By: #### U AMIC #### [facility] [address] [place] [address] Dr. Shayne Roldan SPEC GRAVITY <=1.005 Abnormal 1.005-<=1.02 5 [facility] Comment on above: Performed By: #### U AMIC #### [facility] [address] [place] [address] Dr. Shayne Roldan UA PROTEIN Negative Normal NEGATIVE/ TRACE [facility] Comment on above: Performed By: #### U AMIC #### [facility] [address] [place] [address] Dr. Shayne Roldan Urobilinogen Qn (U) 0.2 {Rogelio'U}/dL Normal 0.2 - 1. 0 [facility] Comment on above: Performed By: #### U AMIC #### [facility] [address] [place] [address] Dr. Shayne Roldan WBC 5-10 Abnormal NONE SEEN [facility] Comment on above: Performed By: #### U AMIC #### [facility] [address] [place] [address] Dr. Shayne Roldan URIC ACID SERUMon 08-05-2022 Urate [Mass/Vol] 6.5 mg/dL Critically high 2.6-6.0 [facility] Comment on above: Performed By: #### M G, RENAL, URIC #### [facility] [address] [address] [address] Shayne Roldan URINE T PROTEIN CREAT RATIOo n 08-05-2022 Protein (U) [Mass/Vol] 4.8 mg/dL Normal <=12.0 [facility] Comment on above: Performed By: #### U RTPCR #### [facility] [address] [place] [address] Dr. Shayne Roldan UR PROT CREAT RAT 0.09 Normal [facility] Comment on above: Performed By: #### U RTPCR #### [facility] [address] [place] [address] Dr. Shayne Roldan URINE CREAT 52.65 mg/dL Normal 20.00-300.00 [facility] Comment on above: Performed By: #### U RTPCR #### [facility] [address] [place] [address] Dr. Shayne Roldan VITAMIN D 25 OHon 08-05-2022 VIT D 25-OH 38.9 ng/mL Normal [facility] Comment on above: Performed By: #### M G, RENAL, URIC #### [facility] [address] [place] [address] Dr. Shayne Roldan VIT D RANGES SEE BELOW Normal [facility] Comment on above: Result Comment: <20 ng/mL Vit D deficient 20 - <30 ng/mL Vit D insufficient 30 - 100 ng/mL Vit D sufficient >100 ng/mL Potential Toxicity Performed By: #### M G, RENAL, URIC #### [facility] [address] [place] [address] Dr. Shayne Roldan IMMUNOGLOBULINS IGA/IGM/IGG/ IGE QUANTITAon 07-12-2022 Immunoglobulin A, Qn, Serum 295 mg/dL Normal 87-352 [facility] Comment on above: Result Comment: Perf ormed at: CB Performed By: #### M G, RENAL, URIC #### [facility] [address] [place] [address] Dr. Shayne Roldan Immunoglobulin E, Total 32 IU/mL Normal 6-495 [facility] Comment on above: Result Comment: Perf ormed at: BN Performed By: #### M G, RENAL, URIC #### [facility] [address] [place] [address] Dr. Shayne Roldan Immunoglobulin G, Qn, Serum 729 mg/dL Normal 586-1602 [facility] Comment on above: Result Comment: Perf ormed at: CB Performed By: #### M G, RENAL, URIC #### [facility] [address] [place] [address] Dr. Shayne Roldan Immunoglobulin M, Qn, Serum 75 mg/dL Normal 26-217 [facility] Comment on above: Result Comment: Perf ormed at: CB Performed By: #### M G, RENAL, URIC #### [facility] [address] [place] [address] Dr. Shayne Roldan CBC AUTO DIFFon 07-05-2022 BASO # 0.1 103/ul Normal 0.0-0.1 [facility] Comment on above: Performed By: #### M G, RENAL, URIC #### [facility] [address] [place] [address] Dr. Shayne Roldan Basophils/100 WBC (Bld) 0.7 % Normal 0.2-2.0 [facility] Comment on above: Performed By: #### M G, RENAL, URIC #### [facility] [address] [place] [address] Dr. Shayne Roldan EO # 0.4 103/ul Normal 0.0-0.7 [facility] Comment on above: Performed By: #### M G, RENAL, URIC #### [facility] [address] [place] [address] Dr. Shayne Roldan Eosinophils/100 WBC (Bld) 4.4 % Normal 0.9-7.0 [facility] Comment on above: Performed By: #### M G, RENAL, URIC #### [facility] [address] [place] [address] Dr. Shayne Roldan Erythrocyte distribution width (RBC) [Ratio] 12.6 % Normal 11.0-15.0 [facility] Comment on above: Performed By: #### M G, RENAL, URIC #### [facility] [address] [place] [address] Dr. Shayne Roldan Hematocrit (Bld) [Volume fraction] 40.2 % Normal 36.0-48.0 [facility] Comment on above: Performed By: #### M G, RENAL, URIC #### [facility] [address] [place] [address] Dr. Shayne Roldan Hemoglobin (Bld) [Mass/Vol] 13.6 g/dL Normal 12.0-16.0 [facility] Comment on above: Performed By: #### M G, RENAL, URIC #### [facility] [address] [place] [address] Dr. Shayne Roldan IG # 0.07 10e3/ul Critically high 0.00-0.03 [facility] Comment on above: Performed By: #### M G, RENAL, URIC #### [facility] [address] [place] [address] Dr. Shayne Roldan IG % 0.8 % Critically high 0.0-0.5 [facility] Comment on above: Performed By: #### M G, RENAL, URIC #### [facility] [address] [place] [address] Dr. Shayne Roldan LYMPH # 2.3 103/ul Normal 1.2-3.8 [facility] Comment on above: Performed By: #### M G, RENAL, URIC #### [facility] [address] [place] [address] Dr. Shayne Roldan Lymphocytes/100 WBC (Bld) 24.7 % Normal 20.5-60.0 [facility] Comment on above: Performed By: #### M G, RENAL, URIC #### [facility] [address] [place] [address] Dr. Shayne Roldan MANUAL DIFF REQ NO Normal [facility] Comment on above: Performed By: #### M G, RENAL, URIC #### [facility] [address] [address] [address] Shayne Roldan MCH (RBC) [Entitic mass] 30.7 pg Normal 26.7-34.0 [facility] Comment on above: Performed By: #### M G, RENAL, URIC #### [facility] [address] [place] [address] Dr. Shayne Roldan MCHC (RBC) [Mass/Vol] 33.8 g/dL Normal 29.9-35.2 [facility] Comment on above: Performed By: #### M G, RENAL, URIC #### [facility] [address] [place] [address] Dr. Shayne Roldan MCV (RBC) [Entitic vol] 90.7 fL Normal 81.0-99.0 [facility] Comment on above: Performed By: #### M G, RENAL, URIC #### [facility] [address] [place] [address] Dr. Shayne Roldan MONO # 0.7 103/ul Normal 0.3-0.8 [facility] Comment on above: Performed By: #### M G, RENAL, URIC #### [facility] [address] [place] [address] Dr. Shayne Roldan Monocytes/100 WBC (Bld) 7.7 % Normal 1.7-12.0 [facility] Comment on above: Performed By: #### M G, RENAL, URIC #### [facility] [address] [place] [address] Dr. Shayne Roldan NEUT # 5.7 103/ul Normal 1.4-6.5 [facility] Comment on above: Performed By: #### M G, RENAL, URIC #### [facility] [address] [place] [address] Dr. Shayne Roldan Neutrophils/100 WBC (Bld) 61.7 % Normal 43.0-75.0 [facility] Comment on above: Performed By: #### M G, RENAL, URIC #### [facility] [address] [place] [address] Dr. Shayne Roldan Platelet mean volume (Bld) [Entitic vol] 8.8 fL Critically low 9.5-13.5 [facility] Comment on above: Performed By: #### M G, RENAL, URIC #### [facility] [address] [address] [address] Shayne Roldan PLT 279 103/ul Normal 150-450 [facility] Comment on above: Performed By: #### M G, RENAL, URIC #### [facility] [address] [address] [address] Shayne Roldan RBC 4.43 106/ul Normal 4.20-5.40 [facility] Comment on above: Performed By: #### M G, RENAL, URIC #### [facility] [address] [address] [address] Shayne Roldan WBC 9.1 103/ul Normal 4.0-11.0 [facility] Comment on above: Performed By: #### M G, RENAL, URIC #### [facility] [address] [address] [address] Shayne Roldan [facility] SARS-CoV-2 (COVID-19) RNA KAYLEE+probe Ql (Unsp spec) Not detected Normal NOT DETECTED [facility] Comment on above: Result Comment: This test is not yet approved or cleared by the [place] FDA. When there are no FDA-approved or cleared tests available, and other criteria are met, FDA can make tests available under an emergency access mechanism called an Emergency Use Authorization (EUA). The EUA for this test is supported by the [employer] Supervisor of Health and Human Service's (HHS's) [...] By: #### M G, RENAL, URIC #### [facility] [address] [place], [place] [address] Dr. Shayne Roldan XR CHEST 2 Von [...] NARDA LONDONO Date: 2022-06-08 19:58 Normal [facility] Covid-19 PCR ([facility])on SARS-CoV-2 (COVID-19) RNA KAYLEE+probe Ql (Unsp spec) Not detected Normal NOT DETECTED [facility] Comment on above: Result Comment: This test is not yet approved or cleared by the [place] FDA. When there are no FDA-approved or cleared tests available, and other criteria are met, FDA can make tests available under an emergency access mechanism called an Emergency Use Authorization (EUA). The EUA for this test is supported by the [place] of Health and Human Service's (HHS's) declaration [...] SARS-CoV-2. Performed By: #### C VDTBH #### [facility] [address] [place], [place] [address] Dr. Sahyne Roldan DEXA AXIALon 03-01-2022 DEXA AXIAL [facility] Department of Radiology [address] [place] [id number] == Patient Name: DIANA CHAMPION : 1955 Sex: F Age: Race: White Pt. Location: Patient Status: D Ordered Date: 02/24/2022 1:25:00 PM Completed Date: 03/01/2022 09:46 AM Requesting Provider: CINDA ANTONIO Attending Provider: Report Copy To: Signs & Symptoms: Z78.0 Asymptomatic menopausal state I10 History: [place] Comments: Exam: DEXA AXIAL == DEXA AXIAL [...] characteristics. Electronically signed: Luzma Marks. Transcribed by: [email or web address], User Resident: Electronically Signed by: LUZMA MARKS @ 03/02/2022 01:07 PM Normal [facility] SCOLIOSIS 2 [facility] 02-24-2022 SCOLIOSIS 2 [facility] Department of Radiology [address] [place] [phone] == Patient Name: DIANA CHAMPION : 1955 Sex: F Age: Race: White Pt. Location: Patient Status: D Ordered Date: 02/24/2022 1:25:00 PM Completed Date: 02/24/2022 01:44 PM Requesting Provider: CINDA ANTONIO Attending Provider: Report Copy To: Signs & Symptoms: M43.10 Spondylolisthesis, site unspecified I10 History: Comments: Views (X-RAY, SCOLIOSIS): PA, Lateral evaluate Exam: SCOLIOSIS 2 [facility] == Scoliosis. Worsening pain. Frontal and lateral thoracolumbar spine IMPRESSION: 1. Diffuse disc disease and facet arthritis. Right convex mid lumbar curvature measuring 16 degrees. Interbody fusion hardware lower lumbar spine. Electronically signed: Hugo Lynn. Transcribed by: [email or web address], User Resident: Electronically Signed by: HUGO LYNN @ 02/26/2022 11:07 AM Normal [facility] Comment on above: Order Comment: Views (X-RAY, SCOLIOSIS): PA, Lateral evaluate CT LUMBAR SPINE W CONTRASTon 01-24-2022 CT LUMBAR SPINE W CONTRAST [facility] Department of Radiology [address] [place] [id number] == Patient Name: DIANA CHAMPION : 1955 Sex: F Age: Race: White Pt. Location: Patient Status: D Ordered Date: 01/09/2022 9:00:00 AM Completed Date: 01/24/2022 03:26 PM Requesting Provider: JOO LINN Attending Provider: JOO LINN Report Copy To: UNKNOWN, PHYSICIAN Signs & Symptoms: M54.16 Radiculopathy, lumbar region I10 History: [place] Comments: , CT MYELOGRAM>PAPER WORK IN CHART [...] L1-2. Electronically signed: Gaurang Hess. Transcribed by: [email or web address], User Resident: Electronically Signed by: GAURANG HESS @ 01/26/2022 08:58 AM Normal [facility] Comment on above: Order Comment: , CT MYELOGRAM>PAPER WORK IN CHART LUMBAR MYELOGRAMon LUMBAR MYELOGRAM [facility] Department of Radiology [address] [place] [phone] == Patient Name: DIANA CHAMPION : 1955 Sex: F Age: Race: White Pt. Location: Patient Status: O Ordered Date: 01/09/2022 9:00:00 AM Completed Date: 01/24/2022 02:37 PM Requesting Provider: JOO LINN Attending Provider: JOO LINN Report Copy To: UNKNOWN, PHYSICIAN Signs & Symptoms: M54.16 Radiculopathy, lumbar region I10 History: [place] Is patient on thinners? 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 Consent was obtained. Timeout: Tibbie protocol timeout verification performed. PROCEDURE: Estimated blood [...] report. Electronically signed: Greg Mcmahan. Transcribed by: [email or web address], User Resident: DEBBIE JI Electronically Signed by: GREG MCMAHAN @ 01/24/2022 04:07 PM I personally read this/these film(s) with this resident Normal [facility] Comment on above: Order Comment: , CT MYELOGRAM> PAPER WORK SCANNED IN CHART , CT MYELOGRAM> PAPER WORK SCANNED IN CHART , , , Ordering Provider - JOO LINN MD , HIP LEFT 1 OR 2 VWS WITH PEL VISon 01-06-2022 HIP LEFT 1 OR 2 VWS WITH PELVIS [facility] Department of Radiology [address] [place] [phone] == Patient Name: DIANA CHAMPION : 1955 Sex: F Age: Race: White Pt. Location: Patient Status: D Ordered Date: 12/21/2021 10:45:00 AM Completed Date: 01/06/2022 01:24 PM Requesting Provider: JOO LINN Attending Provider: JOO LINN Report Copy To: Signs & Symptoms: Z96.642 Presence of left artificial hip joint I10 History: [place] Comments: Evaluate Exam: HIP LEFT 1 OR 2 VWS WITH PELVIS == HIP LEFT 1 OR 2 VWS WITH PELVIS HISTORY: Hip replacement, follow-up. COMPARISON: None. IMPRESSION: 1. Redemonstrated left hip prosthesis without visible complication. 2. Advanced right hip arthritis without significant change with advanced joint space narrowing. Unchanged lumbosacral fusion hardware. Electronically signed: Joe Matthew. Transcribed by: [email or web address], User Resident: Electronically Signed by: JOE MATTHEW @ 01/09/2022 04:45 PM Normal [facility] Comment on above: Order Comment: Evalu ate Vital Signs Date Time Vital Sign Value Performing Clinician Facility 05-19-2025 08:43-0400 Body mass index (BMI) [Ratio] 40.58 kg/m2 Kaylene Owenz TRAUMA NURSE Work Phone: [facility] 05-19-2025 08:43-0400 Body temperature 98.49 [degF] Kaylene Aichholz TRAUMA NURSE Work Phone: [facility] 05-19-2025 08:43-0400 Body weight 107.23 kg Kaylene Aichholz TRAUMA NURSE Work Phone: [facility] 05-19-2025 08:43-0400 Diastolic blood pressure 76 mm[Hg] Kaylene Aichholz TRAUMA NURSE Work Phone: [facility] 05-19-2025 08:43-0400 Heart rate 74 /min Kaylene Aichholz TRAUMA NURSE Work Phone: [facility] 05-19-2025 08:43-0400 Respiratory rate 22 /min Kaylene Aichholz TRAUMA NURSE Work Phone: [facility] 05-19-2025 08:43-0400 SaO2% (BldA) [Mass fraction] 94 % Kaylene Aichholz TRAUMA NURSE Work Phone: [facility] 05-19-2025 08:43-0400 Systolic blood pressure 118 mm[Hg] Kaylene Aichholz TRAUMA NURSE Work Phone: [facility] 04-09-2025 11:03-0400 Body mass index (BMI) [Ratio] 41.2 kg/m2 Kaylene Aichholz TRAUMA NURSE Work Phone: [facility] 04-09-2025 11:03-0400 Body temperature 98.2 [degF] Kaylene Aichholz TRAUMA NURSE Work Phone: [facility] 04-09-2025 11:03-0400 Body weight 108.86 kg Kaylene Aichholz TRAUMA NURSE Work Phone: [facility] 04-09-2025 11:03-0400 Diastolic blood pressure 70 mm[Hg] Kaylene Aichholz TRAUMA NURSE Work Phone: [facility] 04-09-2025 11:03-0400 Heart rate 73 /min Kaylene Aichholz TRAUMA NURSE Work Phone: [facility] 04-09-2025 11:03-0400 Respiratory rate 22 /min Kaylene Aichholz TRAUMA NURSE Work Phone: [facility] 04-09-2025 11:03-0400 SaO2% (BldA) [Mass fraction] 93 % Kaylene Aichholz TRAUMA NURSE Work Phone: [facility] 04-09-2025 11:03-0400 Systolic blood pressure 122 mm[Hg] Kaylene Aichholz TRAUMA NURSE Work Phone: [facility] 03-24-2025 09:57-0400 Body temperature 98.06 [degF] MAG JOSE ALEJANDRO [facility] 03-24-2025 09:57-0400 Diastolic blood pressure 76 mm[Hg] MAG JOSE ALEJANDRO [facility] 03-24-2025 09:57-0400 Respiratory rate 16 /min MAG JOSE ALEJANDRO [facility] 03-24-2025 09:57-0400 Systolic blood pressure 128 mm[Hg] MAG JOSE ALEJANDRO [facility] 02-17-2025 08:31-0400 Body temperature 98.8 [degF] Kaylene Aichholz TRAUMA NURSE Work Phone: [facility] 02-17-2025 08:31-0400 Diastolic blood pressure 72 mm[Hg] Kaylene Brianhholz TRAUMA NURSE Work Phone: [facility] 02-17-2025 08:31-0400 Heart rate 85 /min Kaylene Aichholz TRAUMA NURSE Work Phone: [facility] 02-17-2025 08:31-0400 Respiratory rate 24 /min Kaylene Aichholz TRAUMA NURSE Work Phone: [facility] 02-17-2025 08:31-0400 SaO2% (BldA) [Mass fraction] 90 % Kaylene Brianhholz TRAUMA NURSE Work Phone: [facility] 02-17-2025 08:31-0400 Systolic blood pressure 118 mm[Hg] Kaylene Aichholz TRAUMA NURSE Work Phone: [facility] 01-16-2025 09:50-0400 Body temperature 99 [degF] Kaylene Brianhholz TRAUMA NURSE Work Phone: [facility] 01-16-2025 09:50-0400 Diastolic blood pressure 80 mm[Hg] Kaylene Aichholz TRAUMA NURSE Work Phone: [facility] 01-16-2025 09:50-0400 Heart rate 68 /min Kaylene Aichholz TRAUMA NURSE Work Phone: [facility] 01-16-2025 09:50-0400 Respiratory rate 26 /min Kaylene Aichholz TRAUMA NURSE Work Phone: [facility] 01-16-2025 09:50-0400 SaO2% (BldA) [Mass fraction] 93 % Kaylene Aichholz TRAUMA NURSE Work Phone: [facility] 01-16-2025 09:50-0400 Systolic blood pressure 108 mm[Hg] Kaylene Aichholz TRAUMA NURSE Work Phone: [facility] 01-02-2025 14:54-0500 Body mass index (BMI) [Ratio] 40.2 kg/m2 Kaylene Brianhholz TRAUMA NURSE Work Phone: [facility] 01-02-2025 14:54-0500 Body temperature 99.61 [degF] Kaylene Weaverz TRAUMA NURSE Work Phone: [facility] 01-02-2025 14:54-0500 Body weight 106.23 kg Kaylene Weaverz TRAUMA NURSE Work Phone: [facility] 01-02-2025 14:54-0500 Diastolic blood pressure 84 mm[Hg] Kaylene Weaverz TRAUMA NURSE Work Phone: [facility] 01-02-2025 14:54-0500 Heart rate 78 /min Kaylene Weaverz TRAUMA NURSE Work Phone: [facility] 01-02-2025 14:54-0500 Respiratory rate 26 /min Kaylene Weaverz TRAUMA NURSE Work Phone: [facility] 01-02-2025 14:54-0500 SaO2% (BldA) [Mass fraction] 91 % Kaylene López TRAUMA NURSE Work Phone: [facility] 01-02-2025 14:54-0500 Systolic blood pressure 120 mm[Hg] Kaylene Weaverz TRAUMA NURSE Work Phone: [facility] 11-28-2024 13:08-0500 Body height 162.6 cm Aida Reese TRAUMA NURSE Work Phone: [facility] 11-28-2024 13:08-0500 Body mass index (BMI) [Ratio] 40.51 kg/m2 Aida Reese TRAUMA NURSE Work Phone: [facility] 11-28-2024 13:08-0500 Body temperature 97.9 [degF] Aida Reese TRAUMA NURSE Work Phone: [facility] 11-28-2024 13:08-0500 Body weight 107.05 kg Aida Reese TRAUMA NURSE Work Phone: [facility] 11-28-2024 13:08-0500 Diastolic blood pressure 82 mm[Hg] Aida Reese TRAUMA NURSE Work Phone: [facility] 11-28-2024 13:08-0500 Heart rate 79 /min Aida Reese TRAUMA NURSE Work Phone: [facility] 11-28-2024 13:08-0500 Respiratory rate 20 /min Aida Reese TRAUMA NURSE Work Phone: [facility] 11-28-2024 13:08-0500 SaO2% (BldA) [Mass fraction] 96 % Aida Reese TRAUMA NURSE Work Phone: [facility] 11-28-2024 13:08-0500 Systolic blood pressure 148 mm[Hg] Aida Reese TRAUMA NURSE Work Phone: [facility] 11-12-2024 10:24-0500 Body mass index (BMI) [Ratio] 40.75 kg/m2 Aida Reese TRAUMA NURSE Work Phone: [facility] 11-12-2024 10:24-0500 Body temperature 98.71 [degF] Aida Reese TRAUMA NURSE Work Phone: [facility] 11-12-2024 10:24-0500 Body weight 107.68 kg Aida Reese TRAUMA NURSE Work Phone: [facility] 11-12-2024 10:24-0500 Diastolic blood pressure 78 mm[Hg] Aida Reese TRAUMA NURSE Work Phone: [facility] 11-12-2024 10:24-0500 Heart rate 68 /min Aida Reese TRAUMA NURSE Work Phone: [facility] 11-12-2024 10:24-0500 Respiratory rate 18 /min Aida Reese TRAUMA NURSE Work Phone: [facility] 11-12-2024 10:24-0500 SaO2% (BldA) [Mass fraction] 92 % Aida Reese TRAUMA NURSE Work Phone: [facility] 11-12-2024 10:24-0500 Systolic blood pressure 134 mm[Hg] Aida Reese TRAUMA NURSE Work Phone: [facility] 10-15-2024 14:29-0500 Blood Pressure Location MAG JOSE ALEJANDRO [facility] 10-15-2024 14:29-0500 Diastolic blood pressure 75 mm[Hg] MAG JOSE ALEJANDRO [facility] 10-15-2024 14:29-0500 Heart rate 64 /min MAG JOSE ALEJANDRO [facility] 10-15-2024 14:29-0500 Respiratory rate 20 /min MAG JOSE ALEJANDRO [facility] 10-15-2024 14:29-0500 Systolic blood pressure 147 mm[Hg] MAG JOSE ALEJANDRO [facility] 10-07-2024 14:22-0500 Body height 162.6 cm Aida Reese TRAUMA NURSE Work Phone: [facility] 10-07-2024 14:22-0500 Body mass index (BMI) [Ratio] 40.85 kg/m2 Aida Reese TRAUMA NURSE Work Phone: [facility] 10-07-2024 14:22-0500 Body weight 107.96 kg Aida Reese TRAUMA NURSE Work Phone: [facility] 10-07-2024 14:22-0500 Diastolic blood pressure 72 mm[Hg] Aida Reese TRAUMA NURSE Work Phone: [facility] 10-07-2024 14:22-0500 Heart rate 64 /min Aida Reese TRAUMA NURSE Work Phone: [facility] [facility] 10-07-2024 14:22-0500 Respiratory rate 18 /min Aida Reese TRAUMA NURSE Work Phone: [facility] 10-07-2024 14:22-0500 SaO2% (BldA) [Mass fraction] 93 % Aida Reese TRAUMA NURSE Work Phone: [facility] 10-07-2024 14:22-0500 Systolic blood pressure 110 mm[Hg] Aida Reese TRAUMA NURSE Work Phone: [facility] 09-05-2024 12:53-0400 Body height 162.56 cm Aida Reese TRAUMA NURSE-C Work Phone: [facility] 09-05-2024 12:53-0400 Body weight 104.32 kg Aida Reese TRAUMA NURSE-C Work Phone: [facility] 08-19-2024 11:41-0400 Body mass index (BMI) [Ratio] 40.34 kg/m2 Aida Reese TRAUMA NURSE Work Phone: [facility] 08-19-2024 11:41-0400 Body temperature 97.59 [degF] Aida Reese TRAUMA NURSE Work Phone: [facility] 08-19-2024 11:41-0400 Body weight 106.59 kg Aida Reese TRAUMA NURSE Work Phone: [facility] 08-19-2024 11:41-0400 Diastolic blood pressure 76 mm[Hg] Aida Reese TRAUMA NURSE Work Phone: [facility] 08-19-2024 11:41-0400 Heart rate 57 /min Aida Reese TRAUMA NURSE Work Phone: [facility] 08-19-2024 11:41-0400 SaO2% (BldA) [Mass fraction] 90 % Aida Reese TRAUMA NURSE Work Phone: [facility] 08-19-2024 11:41-0400 Systolic blood pressure 138 mm[Hg] Aida Reese TRAUMA NURSE Work Phone: [facility] 07-11-2024 08:25-0400 Body height 162.6 cm Aida Reese TRAUMA NURSE Work Phone: [facility] 07-11-2024 08:25-0400 Body mass index (BMI) [Ratio] 41.02 kg/m2 Aida Reese TRAUMA NURSE Work Phone: [facility] 07-11-2024 08:25-0400 Body temperature 98.1 [degF] Aida Reese TRAUMA NURSE Work Phone: [facility] 07-11-2024 08:25-0400 Body weight 108.41 kg Aida Reese TRAUMA NURSE Work Phone: [facility] 07-11-2024 08:25-0400 Diastolic blood pressure 74 mm[Hg] Aida Reese TRAUMA NURSE Work Phone: [facility] 07-11-2024 08:25-0400 Heart rate 83 /min Aida Reese TRAUMA NURSE Work Phone: [facility] Comment on above: 94% O2 07-11-2024 08:25-0400 Systolic blood pressure 130 mm[Hg] Aida Reese TRAUMA NURSE Work Phone: [facility] 03-14-2024 10:30-0400 Body height 165.1 cm Steph Collier Work Phone: [facility] 03-14-2024 10:30-0400 Body mass index (BMI) [Ratio] 39 kg/m2 Steph Collier Work Phone: [facility] 03-14-2024 10:30-0400 Body temperature 97.4 [degF] Steph Collier Work Phone: [facility] 03-14-2024 10:30-0400 Body weight 106.36 kg Steph Collier Work Phone: [facility] 03-14-2024 10:30-0400 Diastolic blood pressure 80 mm[Hg] Steph Collier Work Phone: [facility] 03-14-2024 10:30-0400 Heart rate 77 /min Steph Collier Work Phone: [facility] 03-14-2024 10:30-0400 Inhaled oxygen flow rate 3 L/min Steph Collier Work Phone: [facility] 03-14-2024 10:30-0400 Respiratory rate 20 /min Steph Collier Work Phone: [facility] 03-14-2024 10:30-0400 SaO2% (BldA) [Mass fraction] 92 % Steph Collier Work Phone: [facility] 03-14-2024 10:30-0400 Systolic blood pressure 120 mm[Hg] Steph Collier Work Phone: [facility] 08-17-2023 09:20-0400 Body height 165.1 cm Herberth Joana Other [facility] Other 08-17-2023 09:20-0400 Body mass index (BMI) [Ratio] 38.1 kg/m2 Herberth Joana Other [facility] Other 08-17-2023 09:20-0400 Body temperature 98.8 [degF] Herberth Joana Other [facility] Other 08-17-2023 09:20-0400 Body weight 103.87 kg Herberth Joana Other [facility] Other 08-17-2023 09:20-0400 Diastolic blood pressure 85 mm[Hg] Herberth Joana Other [facility] Other 08-17-2023 09:20-0400 Respiratory rate 18 /min Herberth Joana Other [facility] Other 08-17-2023 09:20-0400 SaO2% (BldA) [Mass fraction] 94 % Herberth Joana Other [facility] Other 08-17-2023 09:20-0400 Systolic blood pressure 151 mm[Hg] Herberth Joana Other [facility] Other 03-02-2023 10:00-0400 Body height 165.1 cm Herberth Joana Other [facility] Other 03-02-2023 10:00-0400 Body mass index (BMI) [Ratio] 37.29 kg/m2 Herberth Joana Other [facility] Other 03-02-2023 10:00-0400 Body temperature 98.9 [degF] Herberth Joana Other [facility] Other 03-02-2023 10:00-0400 Body weight 101.65 kg Herberth Joana Other [facility] Other 03-02-2023 10:00-0400 Diastolic blood pressure 76 mm[Hg] Herberth Joana Other [facility] Other 03-02-2023 10:00-0400 Respiratory rate 20 /min Herberth Joana Other [facility] Other 03-02-2023 10:00-0400 SaO2% (BldA) [Mass fraction] 96 % Herberth Joana Other [facility] Other 03-02-2023 10:00-0400 Systolic blood pressure 136 mm[Hg] Herberth Joana Other [facility] Other 12-08-2022 09:30-0500 Diastolic blood pressure 59 mm[Hg] MD Shaikh Ohara Work Phone: [facility] 12-08-2022 09:30-0500 Heart rate 55 /min MD Shaikh Ohara Work Phone: [facility] 12-08-2022 09:30-0500 Respiratory rate 16 /min MD Shaikh Ohara Work Phone: [facility] 12-08-2022 09:30-0500 SaO2% (BldA) [Mass fraction] 96 % MD Shaikh Ohara Work Phone: [facility] 12-08-2022 09:30-0500 Systolic blood pressure 112 mm[Hg] MD Shaikh Ohara Work Phone: [facility] 12-08-2022 06:54-0500 Body height 162.56 cm MD Shaikh Ohara Work Phone: [facility] 12-08-2022 06:54-0500 Body temperature 98.2 [degF] MD Shaikh Ohara Work Phone: [facility] 12-08-2022 06:54-0500 Body weight 104.32 kg MD Shaikh Ohara Work Phone: [facility] 08-09-2022 11:00-0400 Body height 165.1 cm Herberth Joana Other [facility] Other 08-09-2022 11:00-0400 Body mass index (BMI) [Ratio] 37.87 kg/m2 Herberth Joana Other [facility] Other 08-09-2022 11:00-0400 Body temperature 97.2 [degF] Herberth Joana Other [facility] Other 08-09-2022 11:00-0400 Body weight 103.24 kg Herberth Joana Other [facility] Other 08-09-2022 11:00-0400 Diastolic blood pressure 88 mm[Hg] Herberth Joana Other [facility] Other 08-09-2022 11:00-0400 Respiratory rate 20 /min Herberth Joana Other [facility] Other 08-09-2022 11:00-0400 SaO2% (BldA) [Mass fraction] 95 % Herberth Joana Other [facility] Other 08-09-2022 11:00-0400 Systolic blood pressure 133 mm[Hg] Herberth Joana Other [facility] Other 11-17-2021 10:40-0500 Body height 165.1 cm Herberth Joana Other [facility] Other 11-17-2021 10:40-0500 Body mass index (BMI) [Ratio] 37.97 kg/m2 Herberth Joana Other [facility] Other 11-17-2021 10:40-0500 Body temperature 97.8 [degF] Herberth Joana Other [facility] Other 11-17-2021 10:40-0500 Body weight 103.51 kg Herberth Joana Other [facility] Other 11-17-2021 10:40-0500 Diastolic blood pressure 70 mm[Hg] Herberth Joana Other [facility] Other 11-17-2021 10:40-0500 Respiratory rate 18 /min Herberth Joana Other [facility] Other 11-17-2021 10:40-0500 SaO2% (BldA) [Mass fraction] 94 % Herberth Joana Other [facility] Other 11-17-2021 10:40-0500 Systolic blood pressure 130 mm[Hg] Herberth Joana Other [facility] Other 08-30-2021 13:15-0400 Body height 165.1 cm Rena Ginty Other [facility] Other 08-30-2021 13:15-0400 Body mass index (BMI) [Ratio] 36.61 kg/m2 Rena Ginty Other [facility] Other 08-30-2021 13:15-0400 Body temperature 98.7 [degF] Rena Ginty Other [facility] Other 08-30-2021 13:15-0400 Body weight 99.79 kg Rena Ginty Other [facility] Other 08-30-2021 13:15-0400 SaO2% (BldA) [Mass fraction] 90 % Rena Hurd Other [facility] Other Encounters Encounter Date Encounter Type Care Provider Facility Start: 07-08-2025 ambulatory Amalia Kat Facility:[facility] Start: 06-18-2025 End: 06-18-2025 Refill Kaylene Owenz TRAUMA NURSE Work Phone: [facility] Comment on above: Moderate episode of recurrent major depressive disorder (HCC) Start: 06-11-2025 End: 06-11-2025 ambulatory Amalia Kat Facility:[facility] Start: 06-11-2025 End: 06-11-2025 Patient encounter procedure Amalia Stephens [facility] Start: 06-04-2025 End: 06-05-2025 Refill Kaylene Owenz TRAUMA NURSE Work Phone: [facility] Comment on above: Skin pustule Start: 05-19-2025 End: 05-19-2025 Bamboo flowsheet Kaylene Brianhsuryz TRAUMA NURSE Work Phone: [facility] Start: 05-19-2025 End: 05-19-2025 Bamboo flowsheet Kaylene Aichholz TRAUMA NURSE Work Phone: [facility] Start: 05-19-2025 End: 05-19-2025 Telephone encounter Kaylene Rene TRAUMA NURSE Work Phone: [facility] Start: 05-19-2025 End: 05-19-2025 Office outpatient visit 25 minutes Kaylene Rene TRAUMA NURSE Work Phone: [facility] Comment on above: Moderate episode of recurrent major depressive disorder (HCC) (Primary Dx); Morbid (severe) obesity due to excess calories (CMS-HCC); Candidiasis of breast; Skin pustule; RLS (restless legs syndrome) Start: 05-19-2025 End: 05-19-2025 ambulatory KAYLENE AICHHOLZ Not Available Start: 05-12-2025 End: 05-12-2025 Refill Kaylene Aichholz TRAUMA NURSE Work Phone: [facility] Comment on above: Chronic heart failur e with preserved ejection fraction (HCC) (Primary Dx); Edema of both lower extremities Start: 05-12-2025 End: 05-12-2025 ambulatory Jayshree Vargas MD Facility:[facility] Start: 04-30-2025 End: 04-30-2025 Clinisync Result Encounter Generic External Data Provider [facility] External [facility] Unsolicited Start: 04-30-2025 End: 04-30-2025 Clinisync Result Encounter Generic External Data Provider [facility] External Department Unsolicited Start: 04-29-2025 End: 04-29-2025 Refill Kaylene Aichholz TRAUMA NURSE Work Phone: [facility] Comment on above: Restless leg syndrom e Start: 04-27-2025 End: 04-28-2025 Refill Kaylene Aichholz TRAUMA NURSE Work Phone: [facility] Comment on above: Chronic bilateral lo w back pain without sciatica Start: 04-23-2025 End: 04-23-2025 Refill Kaylene Aichholz TRAUMA NURSE Work Phone: [facility] Comment on above: Moderate episode of recurrent major depressive disorder (HCC) (Primary Dx) Start: 04-09-2025 End: 04-09-2025 Bamboo flowsheet Kaylene Aichholz TRAUMA NURSE Work Phone: [facility] Start: 04-09-2025 End: 04-09-2025 Bamboo flowsheet Kaylene Aichholz TRAUMA NURSE Work Phone: [facility] Start: 04-09-2025 End: 04-09-2025 Office outpatient visit 25 minutes Kaylene Rene TRAUMA NURSE Work Phone: [facility] Comment on above: Moderate episode of recurrent major depressive disorder (CMS/HCC) (Primary Dx); Pulmonary emphysema, unspecified emphysema type (CMS/HCC); Chronic respiratory failure with hypoxia (CMS/HCC); Morbid (severe) obesity due to excess calories (CMS/HCC); Restless leg syndrome Start: 04-09-2025 End: 04-09-2025 ambulatory KAYLENE LÓPEZ Not Available Start: 03-24-2025 End: 03-24-2025 ambulatory MAG BLOUNT Facility:[facility] Start: 03-24-2025 End: 03-24-2025 Patient encounter procedure MAG BLOUNT [facility] Start: 03-10-2025 End: 03-12-2025 Clinisync Result Encounter Generic External Data Provider [facility] External Department Unsolicited Start: 03-10-2025 End: 03-12-2025 Clinisync Result Encounter Generic External Data Provider [facility] External Department Unsolicited Start: 03-03-2025 End: 03-03-2025 Clinisync Result Encounter Kaylene López TRAUMA NURSE Work Phone: [facility] Unsolicited Start: 03-03-2025 End: 03-03-2025 Clinisync Result Encounter Kaylene López TRAUMA NURSE Work Phone: [facility] Unsolicited Start: 02-26-2025 End: 02-26-2025 Refill Kaylene López TRAUMA NURSE Work Phone: [facility] Comment on above: Gastroesophageal ref lux disease without esophagitis Start: 02-17-2025 End: 02-17-2025 Bamboo flowsheet Kaylene López TRAUMA NURSE Work Phone: [facility] Start: 02-17-2025 End: 02-17-2025 Bamboo flowsheet Kaylene López TRAUMA NURSE Work Phone: [facility] Start: 02-17-2025 End: 02-17-2025 Office outpatient visit 25 minutes Kaylene López TRAUMA NURSE Work Phone: [facility] Comment on [...] Available Start: 01-23-2025 End: 01-23-2025 ambulatory AB [facility] Start: 01-16-2025 End: 01-16-2025 Office outpatient visit 25 minutes Kaylene López TRAUMA NURSE Work Phone: [facility] Comment on above: Pneumonia [...] Start: 01-15-2025 End: 01-15-2025 Refill Kaylene López TRAUMA NURSE Work Phone: [facility] Comment on above: Pneumonia due to inf ectious organism, unspecified laterality, unspecified part of lung (Primary Dx) Start: 01-02-2025 End: 01-02-2025 Office outpatient visit 25 minutes Kaylene López TRAUMA NURSE Work Phone: [facility] Comment on above: Flu-like symptoms (P rimary Dx); Morbid (severe) obesity due to excess calories ([facility]/HCC); Body mass index (BMI) 40.0-44.9, adult ([facility]/HCC); Pulmonary emphysema, unspecified emphysema type ([facility]/HCC); Chronic respiratory failure with hypoxia ([facility]); Essential hypertension ([facility]) Start: 01-02-2025 End: 01-02-2025 ambulatory KAYLENE LÓPEZ Not Available Start: 01-02-2025 End: 01-02-2025 Bamboo flowsheet Kaylene López TRAUMA NURSE Work Phone: [facility] Start: 01-02-2025 End: 01-04-2025 Bamboo flowsheet Kaylene López TRAUMA NURSE Work Phone: [facility] Start: 01-02-2025 End: 01-04-2025 Clinisync Result Encounter Generic External Data Provider [facility] External Department Unsolicited Start: 12-17-2024 End: 12-17-2024 Office outpatient visit 15 minutes Jessica Lazo MD Work Phone: [facility] Comment on above: Seborrheic keratosis (Primary Dx); History of SCC (squamous cell carcinoma) of skin; Lentigines Start: 12-17-2024 End: 12-17-2024 ambulatory JESSICA LAZO Not Available Start: 12-17-2024 End: 12-17-2024 Bamboo flowsheet Ramin KING Work Phone: [facility] Start: 12-17-2024 End: 12-17-2024 Bamboo flowsheet Ramin KING Work Phone: [facility] Start: 12-17-2024 End: 12-17-2024 ambulatory RAMIN MAIER Not Available Start: 12-17-2024 End: 12-17-2024 Office outpatient visit 25 minutes Ramin KING Work Phone: [facility] Comment on above: Acute pain of right knee (Primary Dx); History of total right knee replacement; Right hip pain; Arthritis of right hip Start: 12-15-2024 End: 12-16-2024 Refill Aida Erese TRAUMA NURSE Work Phone: [facility] Comment on [...] Start: 12-05-2024 End: 12-09-2024 Refill Aida Reese TRAUMA NURSE Work Phone: [facility] Comment on above: Restless leg syndrom e Start: 11-30-2024 End: 12-02-2024 Refill Aida Reese TRAUMA NURSE Work Phone: [facility] Comment on above: Gastroesophageal ref lux disease without esophagitis Start: 11-28-2024 End: 11-28-2024 Bamboo flowsheet Aida Reese TRAUMA NURSE Work Phone: [facility] Start: 11-28-2024 End: 11-28-2024 Bamboo flowsheet Aida Reese TRAUMA NURSE Work Phone: [facility] Start: 11-28-2024 End: 11-28-2024 ambulatory AIDA REESE Not Available Start: 11-28-2024 End: 11-28-2024 Transitional care manage srvc 14 day discharge Iada Reese TRAUMA NURSE Work Phone: [facility] Comment on above: Pulmonary emphysema, unspecified emphysema type (CMS/HCC) (Primary Dx) Start: 11-12-2024 End: 11-12-2024 Bamboo flowsheet Aida Reese TRAUMA NURSE Work Phone: [facility] Start: 11-12-2024 End: 11-12-2024 Bamboo flowsheet Aida Reese TRAUMA NURSE Work Phone: [facility] Start: 11-12-2024 End: 11-12-2024 Office outpatient visit 15 minutes Aida Negronk TRAUMA NURSE Work Phone: [facility] Comment on above: Chronic obstructive pulmonary disease with acute lower respiratory infection (CMS/HCC) (Primary Dx); Primary HSV infection of mouth Start: 11-12-2024 End: 11-12-2024 ambulatory AIDA NEGRONK Not Available Start: 10-26-2024 End: 10-28-2024 Refill Aida Vidaltrick TRAUMA NURSE Work Phone: [facility] Comment on above: Moderate episode of recurrent major depressive disorder (CMS/HCC); Restless leg syndrome Start: 10-17-2024 End: 10-17-2024 ambulatory [facility] Start: 10-15-2024 End: 10-15-2024 ambulatory MAG BLOUNT Facility:[facility] Start: 10-15-2024 End: 10-15-2024 Lab Drop off MAG BLOUNT [facility] Start: 10-15-2024 End: 10-15-2024 Refill Aida Vidaltrick TRAUMA NURSE Work Phone: [facility] Comment on above: Moderate episode of recurrent major depressive disorder (CMS/HCC) Start: 10-15-2024 End: 10-15-2024 ambulatory MAG BLOUNT Facility:[facility] Start: 10-15-2024 End: 10-15-2024 Patient encounter procedure MAG BLOUNT [facility] Start: 10-12-2024 End: 10-14-2024 Refill Aida Negronk TRAUMA NURSE Work Phone: [facility] Comment on [...] Available Start: 10-08-2024 ambulatory MAG BLOUNT Facility :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; Stage 3a chronic kidney disease (HCC) (CMS/HCC); Chronic respiratory failure with hypoxia (CMS/HCC) Start: 10-07-2024 End: 10-07-2024 ambulatory AIDA REESE Not Available Start: 10-07-2024 End: 10-07-2024 Bamboo flowsheet Aida Reese TRAUMA NURSE Work Phone: [facility] Start: 10-07-2024 End: 10-07-2024 Bamboo flowsheet Aida Reese TRAUMA NURSE Work Phone: [facility] Start: 09-25-2024 End: 09-26-2024 Refill Aida Mary Ann TRAUMA NURSE Work Phone: [facility] Comment on above: Restless leg syndrom e Start: 09-12-2024 End: 09-12-2024 ambulatory Aida Negronk TRAUMA NURSE-C Work Phone: [facility] Work Phone: Start: 09-12-2024 End: 09-12-2024 Departed Referred Aida Reese TRAUMA NURSE-C Work Phone: [facility] [place] Start: 09-10-2024 End: 09-10-2024 Orders Only Aida Reese TRAUMA NURSE Work Phone: [facility] Comment on above: Vaginal guero (Aleja joy Dx) Start: 09-05-2024 End: 09-05-2024 Departed Referred Aida Reese TRAUMA NURSE-C Work Phone: [facility] Work Phone: Start: 09-05-2024 End: 09-05-2024 Patient encounter procedure TRAUMA NURSE-C Aida Reese Work Phone: [facility] Work Phone: Start: 09-05-2024 End: 09-05-2024 ambulatory TRAUMA NURSE-C Aida Vidaltrick Work Phone: [facility] Work Phone: Start: 09-03-2024 End: 09-03-2024 Refill Rukhsana Rutherford MA [facility] Comment on above: Gastroesophageal ref lux disease without esophagitis Start: 08-19-2024 End: 08-19-2024 Bamboo flowsheet Aida Reese TRAUMA NURSE Work Phone: [facility] Start: 08-19-2024 End: 08-19-2024 Bamboo flowsheet Aida Mary Ann TRAUMA NURSE Work Phone: [facility] Start: 08-19-2024 End: 08-19-2024 Transitional care manage srvc 7 day discharge Aida Reese TRAUMA NURSE Work Phone: [facility] Comment on [...] Start: 08-12-2024 End: 08-27-2024 Refill Aida Reese TRAUMA NURSE Work Phone: [facility] Comment on above: Restless leg syndrom e Start: 08-08-2024 End: 08-12-2024 Non-patient / Non-visit TRAUMA NURSE-C Aida Reese Work Phone: [facility] Work Phone: Start: 08-08-2024 End: 08-12-2024 Clinisync [...] 07-15-2024 End: 07-15-2024 ambulatory Jayshree Vargas MD Facility:[facility] Start: 07-12-2024 End: 07-12-2024 Clinisync Result Encounter Aida Reese TRAUMA NURSE Work Phone: [facility] Unsolicited Start: 07-12-2024 End: 07-12-2024 Clinisync Result Encounter Aida Reese TRAUMA NURSE Work Phone: [facility] External [facility] Unsolicited Start: 07-11-2024 End: 07-11-2024 Bamboo flowsheet Aida Reese TRAUMA NURSE Work Phone: [facility] Start: 07-11-2024 End: 07-11-2024 Bamboo flowsheet Aida Reese TRAUMA NURSE Work Phone: [facility] Start: 07-11-2024 End: 07-11-2024 ambulatory [facility] Start: 07-11-2024 End: 07-11-2024 Office outpatient visit 25 minutes Aida Reese TRAUMA NURSE Work Phone: [facility] Comment on above: Benign essential HTN (CMS/HCC) (Primary Dx); Chronic heart failure with preserved ejection fraction (CMS/HCC); Severe persistent asthma without complication (CMS/HCC); Moderate mixed hyperlipidemia not requiring statin therapy (CMS/HCC); Morbid obesity with BMI of 40.0-44.9, adult (CMS/HCC) Start: 07-11-2024 End: 07-11-2024 ambulatory AIDA REESE Not Available Start: 07-02-2024 End: 07-02-2024 ambulatory [facility] Start: 06-29-2024 Non-patient / Non-visit TRAUMA NURSE-C B chase Reese Work Phone: [facility] Work Phone: Start: 06-28-2024 End: 07-02-2024 Clinisync Result Encounter Generic External Data Provider [facility] External Department Unsolicited Start: 06-28-2024 End: 07-02-2024 Clinisync Result Encounter Generic External Data Provider [facility] External Department Unsolicited Start: 06-25-[address] [facility] Start: 06-24-2024 End: 06-24-2024 ambulatory Jayshree Vargas MD Facility:[facility] Start: 06-21-2024 End: 06-21-2024 ambulatory [facility] Start: 06-12-2024 End: 06-12-2024 ambulatory AIDA REESE Not Available Start: 05-13-2024 End: 05-13-2024 ambulatory AB [facility] Start: 03-14-2024 End: 03-14-2024 ambulatory Steph Collier Work Phone: [facility] Work Phone: Start: 03-14-2024 End: 03-14-2024 Patient encounter procedure Steph Collier Work Phone: [facility] Work Phone: Start: 03-06-2024 Non-patient / Non-visit Steph Collier Work Phone: [facility] Work Phone: Start: 11-06-2023 Patient encounter procedure Generic Provider [facility] Start: 09-07-2023 End: 09-07-2023 ambulatory Herberth Bernard Other [facility] Other Start: 09-07-2023 Telephone encounter Herberth Joana [facility] Start: 08-28-2023 End: 08-28-2023 ambulatory Herberth Joana Other [facility] Other Start: 08-28-2023 Telephone encounter Herberth Joana [facility] Start: 08-17-2023 End: 08-17-2023 ambulatory Herberth Joana Other [facility] Other Start: 08-17-2023 Office outpatient vi sit 25 minutes Herberth Joana [facility] Start: 04-04-2023 End: 04-04-2023 ambulatory SHAIKH Dimitry OHARA Facility:[facility] Start: 03-24-2023 End: 03-25-[address] STEPH GRANADOS Facility:[facility] Start: 03-02-2023 End: 03-02-2023 ambulatory Herberth Joana Other [facility] Other Start: 03-02-2023 Office outpatient vi sit 25 minutes Herberth Joana [facility] Start: 02-25-2023 End: 02-26-2023 ambulatory HERBERTH JOANA Facility:[facility] Start: 02-22-2023 End: 02-23-2023 ambulatory BO MCCLAIN . Facility:[facility] Start: 12-15-2022 End: 12-16-[address] JACK HALL . Facility:[facility] Start: 12-08-2022 End: 12-08-2022 Admission to same day surgery center MD Shaikh Ohara Work Phone: [facility] Work Phone: Start: 12-08-2022 End: 12-08-2022 ambulatory MD Shaikh Ohara Work Phone: [facility] Work Phone: Start: 11-11-2022 End: 11-11-[address] JACK HALL . Facility:[facility] Start: 11-09-2022 End: 11-09-2022 ambulatory Azkatherine Gonzalezs Other [facility] Other Start: 11-09-2022 Telephone encounter Azkatherine Gonzalezs [facility] Start: 08-19-2022 End: 08-20-2022 ambulatory HERBERTH JOANA Facility:[facility] Start: 08-09-2022 End: 08-09-2022 ambulatory Herberth Joana Other [facility] Other Start: 08-09-2022 Office outpatient vi sit 10 minutes Herberth Joana [facility] Start: 08-09-2022 Telephone encounter Herberth Joana [facility] Start: 08-05-2022 Telephone encounter Herberth Joana [facility] Start: 08-05-2022 End: 08-06-2022 ambulatory HERBERTH JOANA [place] [employer] Other Start: 07-08-2022 End: 07-08-2022 ambulatory Gato Domingo Other [facility] Other Start: 07-08-2022 Telephone encounter Gato Cesar ck [facility] Start: 07-05-2022 End: 07-06-2022 ambulatory MESSER H FAWWAD Facility:[facility]1 Start: 06-08-2022 End: 06-09-2022 ambulatory MESSER H FAWWAD Facility:[facility] Start: 06-07-2022 End: 06-07-2022 ambulatory MESSER H FAWWAD Facility:[facility] Start: 01-24-2022 End: 01-25-2022 ambulatory PHYSICIAN UNKNOWN Facility:[facility] Start: 11-17-2021 End: 11-17-2021 ambulatory Herberth Joana Other [facility] Other Start: 11-17-2021 Office outpatient vi sit 15 minutes Herberth Joana [facility] Start: 08-30-2021 Office outpatient vi sit 15 minutes Rena Ginty [facility] Start: 09-11-2020 End: 09-11-2020 Chart abstracting Miguelito Buck Work Phone: Hematology/Oncology Start: 09-11-2020 End: 09-11-2020 Patient encounter procedure External Provider [facility] Start: 09-11-2020 Results Only External Provider [facility] Start: 09-30-2019 End: 09-30-2019 Patient encounter procedure [facility] [place] Start: 07-07-2017 End: 07-07-2017 [facility] Start: 05-24-2004 Evaluation and management of inpatient [facility] Start: 04-26-2004 Evaluation and management of inpatient [facility] [place] Procedures Date Procedure Procedure Detail Performing Clinician Start: 04-30-2025 Radex hip unilateral with pelvis 2-3 views Generic External Data Provider Start: 03-10-2025 BLOOD CULTURE 2 Generic External Data Provider Start: 03-10-2025 BLOOD CULTURE 1 Generic External Data Provider Start: 03-03-2025 End: 03-03-2025 Screening mammography bi 2-view breast inc cad Kaylene López TRAUMA NURSE Work Phone: Start: 01-02-2025 BLOOD CULTURE 1 [...] ALL CBC WITH AUTO DIFF Aida Reese TRAUMA NURSE Work Phone: Start: 06-28-2024 BLOOD CULTURE 2 Generic External Data Provider Start: 06-28-2024 BLOOD CULTURE 1 Generic External Data Provider Start: 02-29-2024 Mammography Generic Pr ovider Start: 12-08-2022 End: 12-08-2022 Colonoscopy MD Shaikh Ohara Work Phone: Start: 09-11-2020 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 Legal Manager al Provider Start: 09-11-2020 EXTERNAL LAB [...] 12-08-2032 Screening for malignant neoplasm of colon [facility] Start: 12-15-2026 End: 12-15-2026 Patient encounter procedure [facility] Start: 04-09-2026 Urine screening for protein Diabetes: Urine Protein Screening [facility] Comment on above: Postponed from 1975 (Other Medical Reasons) Start: 03-03-2026 Screening for malignant neoplasm of breast Mammogram [facility] Start: 07-17-2025 End: 07-17-2025 Patient encounter procedure 07/17/2025 9:00 AM EDT Office Visit [facility] [address] [place] [phone] Kaylene López NP [address] [place] [phone] [facility] Start: 07-16-2025 End: 07-16-2025 Patient encounter procedure 07/16/2025 2:45 PM EDT Office Visit [facility] [place] [facility] [address] [place] [phone] Jessica Lazo MD [address] [place] [address] [facility] Start: 07-07-2025 Influenza vaccination Influenza Vaccine (#1) [facility] Start: 06-17-2025 End: 06-17-2025 Patient encounter procedure [facility] Start: 05-19-2025 End: 05-19-2025 Patient encounter procedure [facility] Comment on above: Moderate episode of recurrent major depr essive disorder (HCC) (Primary Dx); Morbid (severe) obesity due to excess calories ([facility]) Start: 04-09-2025 End: 04-09-2025 Patient encounter procedure 04/09/2025 11:00 AM EDT Office Visit [facility] [address] [place] [phone] Kaylene López NP [address] [place] [address] Pulmonary emphysema, unspecified emphysema type (CMS/HCC) (Primary Dx); Chronic respiratory failure with hypoxia (CMS/HCC); Morbid (severe) obesity due to excess calories (CMS/HCC) [facility] Comment on above: Pulmonary emphysema, unspecified emphyse ma type (CMS/HCC) (Primary Dx); Chronic respiratory failure with hypoxia (CMS/HCC); Morbid (severe) obesity due to excess calories (CMS/HCC) Start: 03-26-2025 End: 03-26-2025 Patient encounter procedure 03/26/2025 11:30 AM EDT Office Visit [facility] [address] [place] [address] Kaylene López, RIKKI [address] [place] [phone] [facility] Start: 02-28-2025 Screening for malignant neoplasm of breast Mammogram [facility] Start: 02-17-2025 End: 02-17-2025 Patient encounter procedure [facility] Comment on above: Spinal [...] breast cancer Expected: 02/16/2025 (Approximate), Expires: 03/18/2026 [facility] Work Phone: Comment on above: Expected: 02/16/2025 (Approximate), Expi res: 03/18/2026 Start: 01-16-2025 End: 01-16-2025 Patient encounter procedure 01/16/2025 10:00 AM EDT Office Visit [facility] [address] [place] [address] Kaylene López, TRAUMA NURSE [address] [place] [phone] [facility] Start: 01-09-2025 End: 01-09-2025 Patient encounter procedure 01/09/2025 1:40 PM EST Office Visit [facility] [address] [place] [address] Kaylene López, TRAUMA NURSE [address] [place] [phone] [facility] Start: 01-09-2025 End: 01-09-2025 Patient encounter procedure 01/09/2025 8:30 AM EST [facility] [address] [place] [address] Aida Reese NP [address] [place] [address] [facility] Start: 01-02-2025 End: 01-02-2025 Patient encounter procedure 01/02/2025 2:40 PM EST Office Visit [facility] [address] [place] [address] Kaylene López, TRAUMA NURSE [address] [place] [phone] Pulmonary emphysema, unspecified emphysema type (CMS/HCC) (Primary [...] 12/09/2024 2:30 PM EST Office Visit [facility] [address] [place] [phone] Aida Reese NP [address] [place] [address] [facility] Start: 11-20-2024 End: 11-20-2024 Patient encounter procedure [facility] Start: 11-15-2024 End: 11-15-2024 Patient encounter procedure 11/15/2024 10:30 AM EST Office Visit [facility] [address] [place] [address] Jayna Goode PA [address] [place] [address] [facility] Start: 11-12-2024 End: 11-12-2025 XR Chest 2 Views XR chest 2 views Imaging Routine Chronic obstructive pulmonary disease with acute lower respiratory infection (CMS/HCC) Expected: 11/12/2024, Expires: 11/12/2025 [facility] Work Phone: Comment on above: Expected: 11/12/2024, Expires: Start: 11-12-2024 End: 11-12-2024 Patient encounter procedure 11/12/2024 10:30 AM EST Office Visit [facility] [address] [place] [phone] Aida Reese NP [address] [place] [address] Arrived [facility] Comment on above: Arrived Start: 10-11-2024 End: 10-11-2024 Patient encounter procedure 10/11/2024 8:50 AM EST Office Visit [facility] [address] [place] [address] Jayna Goode PA [address] [place] [address] 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 [address] [place] [phone] Aida Reese NP [address] [place] [address] [facility] Start: 10-07-2024 End: 10-07-2024 Patient encounter procedure 10/07/2024 2:30 PM EST Office Visit [facility] [address] [place] [address] Aida Reese NP [address] [facility] [place] [phone] Arrived [facility] Comment on above: Arrived Start: 09-12-2024 Phacoemulsification of cataract with intraocular lens implantation OR Cataract PHACO W/IOL/Vitrectomy (Left) [facility] Start: 08-19-2024 End: 08-19-2025 Clostridioides difficile toxin A+B tcdA+tcdB genes [Presence] in Stool by KAYLEE with probe detection Clostridium difficile,EIA Microbiology Routine Diarrhea, unspecified type Expected: 08/19/2024 (Approximate), Expires: 08/19/2025 [facility] Work Phone: Comment on above: Expected: 08/19/2024 (Approximate), Expi res: 08/19/2025 Start: 08-19-2024 End: 08-19-2024 [facility] Comment on above: Arrived Start: 07-11-2024 End: 07-11-2025 CBC W Auto Differential panel - Blood CBC and differential Lab Routine Benign essential HTN (CMS/HCC) Chronic heart failure with preserved ejection fraction (CMS/HCC) Moderate mixed hyperlipidemia not requiring statin therapy (CMS/HCC) Morbid obesity with BMI of 40.0-44.9, adult (CMS/HCC) Expected: 07/11/2024 (Approximate), Expires: 07/11/2025 [facility] Comment on above: Expected: 07/11/2024 (Approximate), Expi res: 07/11/2025 Start: 07-11-2024 End: 07-11-2025 Comprehensive metabolic 2000 panel - Serum or Plasma Comprehensive metabolic panel Lab Routine Benign essential HTN (CMS/HCC) Chronic heart failure with preserved ejection fraction (CMS/HCC) Moderate mixed hyperlipidemia not requiring statin therapy (CMS/HCC) Morbid obesity with BMI of 40.0-44.9, adult (CMS/HCC) Expected: 07/11/2024 (Approximate), Expires: 07/11/2025 [facility] Comment on above: Expected: 07/11/2024 (Approximate), Expi res: 07/11/2025 Start: 07-11-2024 End: 07-11-2025 Lipid 1996 panel - Serum or Plasma Lipid panel Lab Routine Moderate mixed hyperlipidemia not requiring statin therapy (CMS/HCC) Expected: 07/11/2024 (Approximate), Expires: 07/11/2025 [facility] Comment on above: Expected: 07/11/2024 (Approximate), Expi res: 07/11/2025 Start: 07-11-2024 End: 07-11-2025 Microalbumin/Creatinine panel in random Urine Microalbumin / creatinine urine ratio Lab Routine Benign essential HTN (CMS/HCC) Expected: 07/11/2024 (Approximate), Expires: 07/11/2025 [facility] Work Phone: Comment on above: Expected: 07/11/2024 (Approximate), Expi res: 07/11/2025 Start: 07-11-2024 End: 07-11-2024 Patient encounter procedure [facility] Comment on above: Benign essential HTN (CMS/HCC) (Primary Dx); Chronic heart failure with preserved ejection fraction (CMS/HCC); Severe persistent asthma without complication (CMS/HCC) Start: 07-07-2024 Influenza vaccination Influenza Vaccine (#1) [facility] Start: 12-08-2022 [facility] Start: 07-07-2020 Influenza vaccination INFLUENZA (#1) [facility] Start: 2006 SHINGRIX VACCINE (1 of 2) SHINGRIX VACCINE (1 of 2) [facility] Start: 2006 Tuberculosis screening COLORECTAL CANCER SCREENING,SEE MODIFIER [facility] Start: 2001 DIABETES SCREEN DIABETES SCREEN [facility] Start: 2001 LIPID SCREEN LIPID SCREEN [facility] Start: 1996 Mammography MAMMOGRAM [facility] Start: 1986 HPV TESTING HPV TESTING [facility] Start: 1977 PAP TESTING PAP TESTING [facility] Start: 1975 Urine microalbumin profile DTAP,TDAP,TD (1 - Tdap) [facility] Start: 1975 Urine screening for protein Diabetes: Urine Protein Screening [facility] Start: 1974 HEPATITIS C SCREENING HEPATITIS C SCREENING [facility] Start: 1974 HIV SCREENING HIV SCREENING [facility] Start: 1966 Glaucoma screening Diabetes: Retinopathy Screening [facility] Start: 1956 Hemoglobin A1c measurement Diabetes: Hemoglobin A1C [facility] Start: 1956 Screening for malignant neoplasm of colon [facility] BLOOD CULTURE 1 BLOOD CULTURE 1 Lab Routine 08/08/2024 8:30 PM EDT [facility] BLOOD CULTURE 1 BLOOD CULTURE 1 Lab Routine 06/28/2024 8:20 PM EDT [facility] BLOOD CULTURE 1 BLOOD CULTURE 1 Lab Routine 01/02/2025 4:30 PM EST [facility] BLOOD CULTURE 1 BLOOD CULTURE 1 Lab Routine 03/10/2025 10:25 PM EDT [facility] BLOOD CULTURE 2 BLOOD CULTURE 2 Lab Routine 08/08/2024 8:20 PM EDT [facility] BLOOD CULTURE 2 BLOOD CULTURE 2 Lab Routine 06/28/2024 8:21 PM EDT [facility] BLOOD CULTURE 2 BLOOD CULTURE 2 Lab Routine 03/10/2025 10:32 PM EDT [facility] Dermatopathology exam Dermatopat hology exam Pathology and Cytology Timed Neoplasm of unspecified behavior of bone, soft tissue, and skin Release Upon Ordering for 1 Occurrences starting 10/11/2024 [facility] Work Phone: Comment on above: Release Upon Ordering for 1 Occurrences starting 10/11/2024 LOWER RESPIRATORY CULTURE LOWER RESPIRATORY CULTURE Lab Routine 08/12/2024 9:50 AM EDT [facility] Work Phone: Patient Education Colon Polypect shahram Hemorrhoids (DC) Diverticulosis (DC) [facility] Work Phone: [facility] Immunizations Immunization Date Immunization Notes Care Provider [facility] 09-06-2024 influenza, high dose seasonal, preservative-free Kaylene López TRAUMA NURSE Work Phone: [facility] 09-06-2024 influenza virus vaccine, unspecified formulation Aida Reese TRAUMA NURSE Work Phone: [facility] 08-26-2023 Influenza, High-dose Seasonal, Quadrivalent, Preservative Free Generic Provider [facility] 08-26-2023 influenza virus vaccine, unspecified formulation Generic Provider [facility] 08-18-2023 RSV, recombinant, protein subunit RSVpreF, adjuvant reconstitu, 120mcg/0.5mL, PF (Arexvy) Generic Provider [facility] 08-09-2023 Pneumococcal Conjuga te PCV 20 Generic Provider [facility] 11-01-2022 zoster vaccine recombinant Generic Provider [facility] 08-27-2022 zoster vaccine recombinant Generic Provider [facility] 08-04-2022 influenza virus vaccine, unspecified formulation MAG BLOUNT [facility] 08-04-2022 Influenza, High-dose Seasonal, Quadrivalent, Preservative Free Generic Provider [facility] 08-04-2022 SARS-CoV-2 (COVID-19 ) [id number] MAG BLOUNT [facility] 03-25-2022 SARS-CoV-2 (COVID-19 ) mRNA-1273 vaccine MAG BLOUNT [facility] 09-06-2021 SARS-CoV-2 (COVID-19 ) mRNA-1273 vaccine MAG BLOUNT [facility] 08-06-2021 influenza virus vaccine, unspecified formulation MAG BLOUNT [facility] 08-06-2021 Influenza, High-dose Seasonal, Quadrivalent, Preservative Free Generic Provider [facility] 02-04-2021 SARS-CoV-2 (COVID-19 ) mRNA-1273 vaccine MAG BLOUNT [facility] Comment on above: Result Comment: 2024: [id number] 01-07-2021 SARS-CoV-2 (COVID-19 ) mRNA-1273 vaccine MAG BLOUNT [facility] Comment on above: Result Comment: 2024: [id number] 08-07-2020 influenza virus vaccine, unspecified formulation MAG BLOUNT [facility] 08-07-2020 influenza, injectabl e, quadrivalent, preservative free Generic Provider [facility] 08-09-2019 influenza virus vaccine, unspecified formulation MAG BLOUNT [facility] 08-09-2019 influenza, injectabl e, quadrivalent, preservative free Generic Provider [facility] 10-19-2018 pneumococcal polysaccharide vaccine, 23 valent Generic Provider [facility] 08-08-2018 influenza virus vaccine, unspecified formulation MAG BLOUNT [facility] 08-08-2018 influenza, injectabl e, quadrivalent, preservative free Generic Provider [facility] 07-18-2018 Depo-Medrol 40 mg Rena Gint y Other [facility] Other 01-31-2018 Depo-Medrol 40 mg Rena Gint y Other [facility] Other 08-10-2017 influenza virus vaccine, unspecified formulation MAG BLOUNT [facility] 08-10-2017 influenza, injectabl e, quadrivalent, preservative free Generic Provider [facility] 08-09-2017 influenza virus vaccine, split virus (incl. purified surface antigen) Generic Provider [facility] 08-09-2017 influenza virus vaccine, unspecified formulation Steph Collier Work Phone: [facility] 08-09-2017 influenza, seasonal, injectable, preservative free Rena Ginty Other [facility] Other 09-02-2009 novel [id number], preservative-free, injectable Generic Provider [facility] Healthcare Payers Date Payer Category Payer Medicare [id number] 2024 Medicaid [id number] 2024 Medicaid [id number] 2024 Medicare [id number] 2024 Private Health Insurance [id number] [id number] 2024 Medicare [id number] 2023 Medicare (Managed Care) 1.2. [id number] 2022 Unknown 2021 Medicare [id number] [id number] 2019 Medicaid [place] [id number] 2019-Present Medicaid [id number] 2017 Medicare [id number] 2016 Medicare MEDICARE MEDICAR E A AND B [id number] 2016-Present [place] Medicare [id number] 1959 Unknown [id number] 1956 Unknown [id number] 2.16.840.1.982466.3.579.2.6 47 1956 Unknown [id number] 2.16.840.1.935631.3.579.2.5 93 1956 Unknown [id number] 2.16.840.1.032816.3.579.2.5 93 1956 Unknown [id number] 2.16.840.1.943739.3.579.2.5 93 1956 Unknown [id number] 2.16.840.1.091018.3.579.2.5 93 1956 Unknown [id number] 2.16.840.1.670343.3.579.2.5 93 1956 Unknown [id number] 2.16.840.1.315250.3.579.2.5 93 1956 Unknown [id number] 2.16.840.1.015300.3.579.2.5 93 1956 Unknown [id number] 2.16.840.1.408046.3.579.2.5 93 1956 Unknown [id number] 2.16.840.1.585448.3.579.2.5 93 1956 Unknown [id number] 2.16.840.1.772015.3.579.2.5 93 1956 Unknown [id number] 2.16.840.1.493619.3.579.2.5 93 1956 Unknown [id number] 2.16.840.1.053513.3.579.2.7 1956 Unknown [id number] 2.16.840.1.322398.3.579.2.7 1956 Unknown [id number] 2.16.840.1.372432.3.579.2.7 1956 Unknown [id number] 2.16.840.1.385448.3.579.2.1 259 1956 Unknown [id number] 2.16.840.1.680328.3.579.2.1 259 1956 Unknown [id number] 2.16.840.1.300939.3.579.2.1 259 1956 Unknown [id number] 2.16.840.1.257655.3.579.2.1 259 1956 Unknown [id number] 2.16.840.1.604989.3.579.2.1 259 1956 Unknown [id number] 2.16.840.1.793458.3.579.2.1 259 1956 Unknown [id number] 2.16.840.1.535488.3.579.2.1 259 1956 Unknown [id number] 2.16.840.1.220111.3.579.2.1 259 1956 Unknown [id number] 2.16.840.1.391448.3.579.2.1 259 1956 Unknown [id number] 2.16.840.1.674444.3.579.2.1 259 1956 Unknown [id number] 2.16.840.1.633156.3.579.2.1 259 1956 Unknown [id number] 2.16.840.1.030216.3.579.2.1 259 1956 Unknown [id number] 2.16.840.1.895331.3.579.2.1 259 1956 Unknown [id number] 2.16.840.1.586834.3.579.2.1 259 1956 Unknown [id number] 2.16.840.1.683113.3.579.2.1 259 1956 Unknown [id number] 2.16.840.1.744556.3.579.2.1 259 1956 Unknown [id number] 2.16.840.1.737414.3.579.2.1 259 1956 Unknown [id number] 2.16.840.1.950466.3.579.2.1 96 1956 Unknown [id number] 2.16.840.1.242953.3.579.2.1 96 1956 Unknown [id number] 2.16.840.1.015587.3.579.2.1 96 1956 Unknown [id number] 2.16.840.1.764396.3.579.2.7 27 1956 Unknown [id number] 2.16.840.1.738876.3.579.2.7 27 Medicare [id number] Self-pay Self Pay [id number] Unknown [id number] Social History Date Type Detail Facility Tobacco smoking stat us [facility] Unknown if ever smoked [facility] Start: 1955 Sex Assigned At Female F [facility] Start: 09-11-2020 End: 12-05-2023 Tobacco smoking status NHIS Never smoker [facility] Start: 09-11-2020 End: 12-05-2023 Tobacco use and exposure Never used [facility] Start: 09-11-2020 End: 05-19-2025 Alcohol intake Lifetime non-drinker (finding) [facility] Start: 09-11-2020 History SDOH Alcohol Frequency 1 [facility] Start: 1955 Sex Assigned At Not on file C [facility] Start: 10-26-2023 End: 11-25-2024 Sex Assigned At [...] Start: 02-17-2010 End: 11-13-2024 Sex Female (finding) [facility] How hard is it for y ou to pay for the very basics like food, housing, medical care, and heating Somewhat hard [facility] Do you feel stress - tense, restless, nervous, or anxious, or unable to sleep at night because your mind is troubled all the time - these days [OSQ] Only a little [facility] Sexual Orientation [facility] NEGATED: Highlighted rowStart: NINF History of tobacco use Passive smoker [facility] Goals Date Patient Goal Desired Activity /State Personal health goal Functional Status Date Assessment Result Facility 03-24-2025 Functional Status N/A [facility] 10-15-2024 Functional Status N/A [facility] Clinical Notes 08-30-2021 to 05-19-2025 Telephone Encounter [...] if no help let me know LESLIE [facility] 05-19-2025 Miscellaneous Notes Call patient to [...] me know LESLIE documented in this encounter [facility] 05-19-2025 History of Present illness Narrative [...] History: Diagnosis Date Alcohol screening Arthritis Asthma ([facility]) At moderate risk for fall Benign essential HTN Breast cancer screening by mammogram Chronic back pain greater than 3 months duration Chronic heart failure with preserved ejection fraction (HCC) Chronic kidney disease, stage III (moderate) ([facility]) Chronic obstructive pulmonary disease (COPD) ([facility]) Colon cancer (HCC) Colorectal cancer ([facility]) Contact w and exposure to oth viral communicable diseases COPD exacerbation ([facility]) Coronary artery disease Depression Emphysema, unspecified ([facility]) Encounter for gynecological examination (general) (routine) without abnormal findings Essential (primary) hypertension Exposure to STD Gastroesophageal reflux disease General deterioration of health HPV in female Hyperlipidemia Hyperuricemia Intertrigo Iron deficiency anemia Low back pain Morbid obesity with BMI of 40.0-44.9, adult ([facility]) Osteoporosis screening Pneumonia Positive depression screening Post-menopausal Restless leg syndrome Right hip pain Urge incontinence Vitamin D deficiency Past Surgical History: Procedure Laterality Date BACK SURGERY 2004 CARDIAC CATHETERIZATION Left 06/14/2014 Left Heart-Ventricular Puncture CARDIAC CATHETERIZATION Left 08/13/2018 Left Heart-Ventricular Puncture FOOT SURGERY 09/2015 JOINT REPLACEMENT Left 08/01/2016 Hip replacement REVISION TOTAL HIP ARTHROPLASTY Left 03/[address] LINN SPINAL FUSION 05/07/2003 [facility] TOTAL HIP ARTHROPLASTY Left 08/30/2019 REMOVED TOTAL [...] not take any documented in this encounter [facility] 04-09-2025 History of Present illness Narrative Associated Problem(s): Depression (CMS/HCC) Current med paxil Will add on medication 3L Images from the original note were not included. Diana Champion is a 69 y.o. female presents with chief complaint of Hospital Follow-up HPI: Here for hospital follow up: Discharged to [place] on 03/25/25. 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 General instructions Take qfog-okq-bvrxmvj and prescription medicines only as told by [...] provider. Document Revised: 07/12/2021 Document Reviewed: 07/12/2021 [employer] Patient Education 2023 agreement24 [email or web address]. Follow Up Care 10/15/2024 15:05:18 With:MAG BLOUNT PA-C, URL Address: [address] [place] [address] When:Within 3 Month(s) [facility] 03-24-2025 Note Patient Education Obstetrics and Gynecology [...] health care provider. General instructions ??? Take arek-tdf-rhuhxif and prescription medicines only as told by [...] drink, and whe (more content not included)... [facility] 02-17-2025 History of Present illness Narrative [...] ferrous sulfate 325 mg, Daily with breakfast Lfjsimmgsjn-Qzchkxaks-Nkzmdz (Trelegy Ellipta) 200-62.5-25 MCG/ACT aerosol powder 1 [...] Morbid obesity with BMI of 40.0-44.9, adult (CMS/[facility]) Osteoporosis screening Pneumonia Positive depression screening Post-menopausal Restless leg syndrome Right hip pain Urge incontinence Vitamin D deficiency Past Surgical History: Procedure Laterality Date BACK SURGERY 2004 CARDIAC CATHETERIZATION Left 06/14/2014 Left Heart-Ventricular Puncture CARDIAC CATHETERIZATION Left 08/13/2018 Left Heart-Ventricular Puncture FOOT SURGERY 09/2015 JOINT REPLACEMENT Left 08/01/2016 Hip replacement REVISION TOTAL HIP ARTHROPLASTY Left 03/[address] LINN SPINAL FUSION 05/07/2003 [facility] TOTAL HIP ARTHROPLASTY Left 08/30/2019 REMOVED TOTAL [...] elevated right sided pressure at 66 [facility] Cardiology Gastroesophageal reflux disease Recommendations: freq [...] invasive vent at night 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 Edema of both lower extremities Elevate legs [...] invasive vent at night 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 She's been in and out of [facility] for pneumonia recently. Had echo a few [...] breath since then. She has seen her gaming associate. Her chest pain is noncardiac. She has [...] mouth every other day., Disp: , Rfl: unqohksrukx-rhmpjrdrd-sfkghvaw 100-62.5-25 mcg blister with device, , Disp: [...] mg tablet, YOKO (more content not included)... [facility] 01-16-2025 History of Present illness Narrative Associated [...] new atb and sputum result. She will waste picker new atb after appt. Images from [...] chills, +weakness, has home health Nurse from [facility] coming today, not sure if any therapy [...] ferrous sulfate 325 mg, Daily with breakfast Ssokdpivqft-Zonxugnvw-Kvchdf (Trelegy Ellipta) 200-62.5-25 MCG/ACT aerosol powder 1 [...] History: Diagnosis Date Alcohol screening Arthritis Asthma ([facility]) At moderate risk for fall Benign essential HTN ([facility]) Breast cancer screening by mammogram Chronic back pain greater than 3 months duration Chronic heart failure with preserved ejection fraction ([facility]) Chronic kidney disease, stage III (moderate) (HCC) ([facility]) Chronic obstructive pulmonary disease (COPD) ([facility]/HCC) Colon cancer ([facility]/HCC) Colorectal cancer ([facility]/HCC) Contact w and exposure to oth viral communicable diseases COPD exacerbation ([facility]/HCC) Coronary artery disease ([facility]/HCC) Depression ([facility]/HCC) Emphysema, unspecified ([facility]) Encounter for gynecological examination (general) (routine) without abnormal findings Essential (primary) hypertension ([facility]/HCC) Exposure to STD Gastroesophageal reflux disease General deterioration of health HPV in female Hyperlipidemia (CMS/HCC) Hyperuricemia Intertrigo Iron deficiency anemia Low back pain Morbid obesity with BMI of 40.0-44.9, adult ([facility]) Osteoporosis screening Pneumonia Positive depression screening Post-menopausal Restless leg syndrome Right hip pain Urge incontinence Vitamin D deficiency Past Surgical History: Procedure Laterality Date BACK SURGERY 2004 CARDIAC CATHETERIZATION Left 06/14/2014 Left Heart-Ventricular Puncture CARDIAC CATHETERIZATION Left 08/13/2018 Left Heart-Ventricular Puncture FOOT SURGERY 09/2015 JOINT REPLACEMENT Left 08/01/2016 Hip replacement REVISION TOTAL HIP ARTHROPLASTY Left 03/[address] LINN SPINAL FUSION 05/07/2003 [facility] TOTAL HIP ARTHROPLASTY Left 08/30/2019 REMOVED TOTAL [...] stage 3a (HCC) (CMS/HCC) Monitor labs Depression ([facility]/HCC) Relevant Medications PARoxetine (Paxil) 40 MG tablet [...] Noted on ECHO findings 05/29 Essential hypertension ([facility]/HCC) DASH diet Limit caffeine Contact office if chest pain, pressure, dizziness, shortness of breath, swelling legs Recommend slow position changes Current meds: does not take any Severe persistent asthma, uncomplicated (CMS/HCC) Is under the care of dr mcclain Current meds for treatment of asthma/COPD: albuterol, trelegy, singulair Chronic respiratory failure with hypoxia ([facility]) Is oxygen dependant Screening mammogram for breast cancer Relevant Orders Bilateral screening mammogram Pneumonia due to infectious organism - Primary Respiratory panel: culture pseudomonas Was sent home on doxy, will have her stop this, and start levoquin 750mg daily for 7 day Recent hospitalization to [facility]: back to back, 01/02/25 and 01/08/25 [...] elevated right sided pressure at 65 [facility] Cardiology Associated Problem(s): Severe persistent asthma, uncomplicated (CMS/HCC) Is under the care of dr mcclain Current meds for treatment of asthma/COPD: albuterol, trelegy, singulair Associated Problem(s): Pneumonia due to infectious organism Respiratory panel: culture pseudomonas Was sent home on doxy, will have her stop this, and start levoquin 750mg daily for 7 day Recent hospitalization to [facility]: back to back, 01/02/25 and 01/08/25 I have reviewed her hospital notes, labs, discharge info as well Associated Problem(s): Chronic respiratory failure with hypoxia (CMS/HCC) Is oxygen dependant, non invasive vent at night samsa documented in this encounter [facility] 01-16-2025 Instructions Kaylene López NP - [...] OT for home documented in this encounter [facility] 01-15-2025 History of Present illness Narrative Associated Problem(s): Pneumonia due to infectious organism Respiratory panel: culture pseudomonas Was sent home on doxy, will have her stop this, and start levoquin 750mg daily for 7 day documented in this encounter [facility] 01-02-2025 History of Present illness Narrative Associated Problem(s): Flu-like symptoms Neg, still strong clinical suspicion for flu, d/t severe pulmonary conditions and weakness will send her to [facility] ER for evaluation DD: pneumonia, covid, flu, RSV Associated Problem(s): Chronic respiratory failure with hypoxia (CMS/HCC) Oxygen level 88-90% w walking, normal 94-95% w oxygen Associated Problem(s): Chronic obstructive pulmonary disease (COPD) (CMS/HCC) [facility] gaming associate Pt started having symptoms on Monday with [...] Diarrhea started today, others have been sick [facility] gaming associate Flu Symptoms This is a new problem. [...] ferrous sulfate 325 mg, Daily with breakfast Vznyexvjkrc-Lesnabjmk-Lzeevr (Trelegy Ellipta) 200-62.5-25 MCG/ACT aerosol powder 1 [...] (HCC) (CMS/HCC) Chronic obstructive pulmonary disease (COPD) ([facility]/HCC) Colon cancer ([facility]/HCC) Colorectal cancer ([facility]/HCC) Contact w and exposure to oth viral communicable diseases COPD exacerbation (CMS/HCC) Coronary artery disease ([facility]/HCC) Depression ([facility]/HCC) Emphysema, unspecified ([facility]) Encounter for gynecological examination (general) (routine) without abnormal findings Essential (primary) hypertension ([facility]/HCC) Exposure to STD Gastroesophageal reflux disease General deterioration of health HPV in female Hyperlipidemia ([facility]/HCC) Hyperuricemia Intertrigo Iron deficiency anemia Low back pain Morbid obesity with BMI of 40.0-44.9, adult ([facility]) Osteoporosis screening Pneumonia Positive depression screening Post-menopausal Restless leg syndrome Right hip pain Urge incontinence Vitamin D deficiency Past Surgical History: Procedure Laterality Date BACK SURGERY 2004 CARDIAC CATHETERIZATION Left 06/14/2014 Left Heart-Ventricular Puncture CARDIAC CATHETERIZATION Left 08/13/2018 Left Heart-Ventricular Puncture FOOT SURGERY 09/2015 JOINT REPLACEMENT Left 08/01/2016 Hip replacement REVISION TOTAL HIP ARTHROPLASTY Left 03/[address] LINN SPINAL FUSION 05/07/2003 [facility] TOTAL HIP ARTHROPLASTY Left 08/30/2019 REMOVED TOTAL [...] This Visit Chronic obstructive pulmonary disease (COPD) ([facility]/HCC) [facility] gaming associate Morbid (severe) obesity due to excess calories ([facility]) Discussed with patient their BMI (actual, verses recommended). We have also discussed lifestyle modifications: attempts to perform physical activity as chronic conditions allow, also to monitor dietary intake: increasing protein/fruits/veggies and lowering carb intake (unless contraindicated). Limit sodas, juices, and sugary drinks. Essential hypertension ([facility]/HCC) DASH diet Limit caffeine Contact office if [...] conditions and weakness will send her to [facility] ER for evaluation DD: pneumonia, covid, [...] not take any documented in this encounter [facility] 12-17-2024 History of Present illness Narrative [...] Visit: 6 months documented in this encounter [facility] 12-17-2024 History of Present illness Narrative [...] ferrous sulfate 325 mg, Daily with breakfast Bmkwzhkjfee-Oogwdqejs-Ltudla (Trelegy Ellipta) 200-62.5-25 MCG/ACT aerosol powder 1 [...] be necessary. Pt will consult with her [employer] to see if she would be a [...] requiring urgent evaluation. documented in this encounter [facility] 12-13-2024 History of Present illness Narrative [...] skin of chest Chest - Medial (Center) [place] macule at the biopsy site. Destr of lesion Complexity: simple Destruction method: cryotherapy Informed consent: discussed and consent obtained Informed consent comment: The risks of the procedure were discussed, including, but not limited to risks of scarring, darker or facilities maintenance supervisor pigmentary changes, recurrence, infection, and incomplete removal [...] or tenderness. Additional details: Previous accession number: [id number] Discussed treatment options excision vs cryotherapy in detail. Patient opted for cryotherapy. Cryotherapy completed today, see procedure note. Return to clinic prior to next scheduled visit for any signs or symptoms of recurrence, reviewed the signs and symptoms. Recommended 6 month skin exam. Next Visit: as scheduled documented in this encounter [facility] 11-28-2024 History of Present illness Narrative Associated Problem(s): Chronic obstructive pulmonary disease (COPD) ([facility]) Was admitted to [facility] for COPD with acute exacerbation. Was [...] for Hospital Follow-up. HPI Was admitted to [facility] for COPD with acute exacerbation. Was [...] This Visit Chronic obstructive pulmonary disease (COPD) ([facility]) - Primary Was admitted to [facility] for COPD with acute exacerbation. Was [...] hospital follow up. documented in this encounter [facility] 11-28-2024 Instructions Aida Reese NP - 11/28/2024 1:[address] Mcclain's office to see if he wants to see you for hospital follow up sooner than January. Take and finish all medications as directed. documented in this encounter [facility] 11-12-2024 History of Present illness Narrative Associated Problem(s): Chronic obstructive pulmonary disease (COPD) ([facility]) 5 days ago woke up, body aches, [...] This Visit Chronic obstructive pulmonary disease (COPD) ([facility]) - Primary 5 days ago woke up, [...] 1 g tablet documented in this encounter [facility] 11-12-2024 Instructions Aida Reese NP - [...] [facility]. documented in this encounter [facility] 10-17-2024 Note Attestation signed by Emelia [...] Age: 69 y.o. : 1955 Account No.: [id number] Referring physician: Dr. Bo Mcclain Chief complaint: Recurreny pneumonia HPI Diaan Champion is a 69 y.o. female with PMHx of chronic hypoxic respiratory failure on 3L home O2, tracheobronchomalacia who is presenting to clinic for follow up. Patient was previously referred by Dr. Bo Mcclain of [facility] in June of 2024. Patient had been having frequent pneumonias requiring hospitalization thought to be secondary to dynamic airway collapse. Therefore we performed bronchoscopy with airway inspection on 07/02/2024 which showed severe tracheobronchomalacia with mucous plugging. She subsequently followed up post procedure and different treatment options were discussed. She was hesitant to undergo APC or tracheal bronchoplasty at [facility] and instead opted to trial CPAP [...] years. 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 Her family history is positive for COPD [...] Diagnosis Date Allergic rhinitis Anemia Asthma Cancer ([facility]) Chronic heart failure with preserved ejection fraction ([facility]) Chronic hypoxic respiratory failure ([facility]) Chronic kidney disease COPD (chronic obstructive pulmonary disease) ([facility]) Coronary artery disease Depression Diabetes mellitus ([facility]) Dyspnea GERD (gastroesophageal reflux disease) Hyperlipidemia Lumbar spondylosis Other secondary pulmonary hypertension ([facility]) Pneumonia Primary osteoarthritis of right hip Pulmonary [...] mg by bessie (more content not included)... [facility] 10-15-2024 Hospital Discharge instructions Patient Education 10/15/2024 [...] your health care provider. General instructions Take azmt-nze-fpmdzuc and prescription medicines only as told by [...] provider. Document Revised: 07/12/2021 Document Reviewed: 07/12/2021 [employer] Patient Education 2023 agreement24 [email or web address]. Follow Up Care 10/11/2024 14:37:09 With:JOSE ALEJANDRO MICHAUD, MAG Hester, JACQUELINEL Address: [facility] [address] [facility] [place] [address] When:Within 3 Month(s) [facility] 10-15-2024 Note Urology Office/Clini c Note Chief [...] 235.894 lb BMI: 40.27 Assessment/Plan CHF - [facility] CKD - Joana COPD/Pulm - Samsa/Omballi. [...] could include cysto, urodynamics, Botox, SNM. Orders: 08848 Measure Post Void residual urine and/or bladder capacity by US- non-imaging E&M of New Patient Moderate 45-59 Min 91815 Urine Culture Urnls Dip Stick Auto w/o Microscopy POC 49431 Follow-up With When Contact Information JOSE ALEJANDRO [...] drop(s) Allergies f (more content not included)... [facility] Comment on above: Result Comment: Elec [...] health care provider. General instructions ??? Take ivhf-zzv-jnepgmq and prescription medicines only as told by [...] drink, and whe (more content not included)... [facility] 10-11-2024 History of Present illness Narrative [...] pending biopsy results documented in this encounter [facility] 10-07-2024 History of Present illness Narrative [...] were not included. Subjective Patient ID: Diana Champoin is a 69 y.o. female who presents for Follow-up (She presents today for a 3 month follow up for her asthma. ). HPI Specialists: Pulmonology- Dr. Mcclain and Dr. Yoo Cardiology- [facility] Ortho- Dr. Corrales Nephrology- Dr. Sky [...] Chronic kidney disease, stage III (moderate) (HCC) ([facility]) Follows with Dr. Bernard. Monitor CMP, avoid nephrotoxic agents. Morbid obesity with BMI of 40.0-44.9, adult (CMS/[facility]) Discussed with patient their BMI (actual, verses recommended). We have also discussed lifestyle modifications: attempts to perform physical activity as chronic conditions allow, also to monitor dietary intake: increasing protein/fruits/veggies and lowering carb intake (unless contraindicated). Limit sodas, juices, and sugary drinks. Urge incontinence - Primary Relevant Orders Ambulatory referral to Urology Chronic respiratory failure with hypoxia ([facility]) Following closely with Dr. Mcclain. Recent exacerbation [...] referral to Dermatology documented in this encounter [facility] 09-03-2024 Telephone encounter Note Pt requesting a refill on her Omeprazole BECK:08/19/2024 NOV:10/09/2024 [facility] 09-03-2024 Miscellaneous Notes Pt requesting a refill on her Omeprazole BECK:08/19/2024 NOV:10/09/2024 documented in this encounter [facility] 08-22-2024 Telephone encounter Note Patient called in saying you wanted her to do a stool sample, but she has not gotten an order for that, so she wasn't sure when she was supposed to do that. Also her pregabalin needs refilled but she said that kareen had a hard time getting it in last time. MAYANK [facility] 08-22-2024 Miscellaneous Notes Patient called in [...] spelled that right) nurse phone number is [phone] or you can contact patient she said. MAYANK documented in this encounter [facility] 08-19-2024 History of Present illness Narrative Last Monday left hospital and has been having diarrhea about 6 times a day. Images from the original note were not included. Subjective Patient ID: Diana Champion is a 69 y.o. female who presents for No chief complaint on file.. [facility] Hospital follow up; Was seen at [facility] 08/08/24-08/12/24 ARF; Was discharged home on [...] This Visit Moderate persistent asthma with exacerbation (CMS/[facility]) - Primary Other Visit Diagnoses Diarrhea, unspecified type Relevant Orders Clostridium difficile,EIA documented in this encounter [facility] 08-19-2024 Instructions Aida Reese NP - 08/19/2024 11:30 AM EDT Continue Augmentin. Start taking OTC probiotics Have stool culture completed to test for C.Difficile. If negative continue ATB regimen as directed. If positive we will treat accordingly. Keep all follow up appointments as scheduled. documented in this encounter [facility] 08-13-2024 Note Gram Stain Evaluation This specimen is of good quality and is acceptable for routine [facility] 08-13-2024 Note [facility] GRAM STAIN EVALUATION bacterial culture. [facility] 08-13-2024 Telephone encounter Note Patient's home [...] spelled that right) nurse phone number is [phone] or you can contact patient she said. JN [facility] 07-16-2024 Telephone encounter Note Pt informed of lab results and provider recommendations. Pt does do chair exercises four times a week and walks (with walker) but due to her health conditions she is limited. Pt is in a wheelchair with very limited ambulation -SCR [facility] 07-16-2024 Miscellaneous Notes Pt informed of [...] Aida Reese NP documented in this encounter [facility] 07-16-2024 Telephone encounter Note ----- Message [...] 9:29 AM EDT To: Aida Reese NP [facility] 07-11-2024 Note Attestation signed by Emelia [...] Age: 68 y.o. : 1955 Account No.: [id number] HPI Chief Complaint: follow up after recent [...] years. 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 Her family history is positive for COPD [...] was initiated by the patient and conducted zes-minr-ji-face with use of audio-only real time telephone [...] by mouth every other day. Historical Provider, zmniqxieinr-pcgwzrpcw-mcluqdgq 100-62.5-25 mcg blister with device Historical Provider, [...] (Theragran-M) 9 mg (more content not included)... [facility] 07-11-2024 History of Present illness Narrative Associated Problem(s): Morbid obesity with BMI of 40.0-44.9, adult ([facility]) Discussed with patient their BMI (actual, verses recommended). We have also discussed lifestyle modifications: attempts to perform physical activity as chronic conditions allow, also to monitor dietary intake: increasing protein/fruits/veggies and lowering carb intake (unless contraindicated). Limit sodas, juices, and sugary drinks. Associated Problem(s): Severe persistent asthma without complication ([facility]) Currently taking Trelegy Singulair Albuterol Was seen on 06/12/24 for Hospital follow up. Is following closely with Pulmonology; Tracheobronchomalacia Associated Problem(s): Hyperlipidemia (CMS/HCC) Currently not on any medications: Lifestyle and dietary modifications. Recheck lipid pane today. Associated Problem(s): Chronic heart failure with preserved ejection fraction (CMS/HCC) Follows [facility] Was seen in May 2024 Lasix 20mg Associated Problem(s): Benign essential HTN (CMS/HCC) Currently not taking any medications. Bp is well controlled. Averages 120's-130's. Images from the original note were not included. Subjective Patient ID: Diana Champion is a 68 y.o. female who presents for Follow-up. HPI Specialists: Pulmonology- Dr. Mcclain and Dr. Yoo Cardiology- [facility] Ortho- Dr. Corrales Nephrology- Dr. Sky Was seeing Urology 5 years ago for urinary retention. Now is having mixed incontinence. Does not want referral today, would like to revisit at next visit. Was seen on 06/12/24 for Hospital follow up. Is following closely with Pulmonology; Tracheobronchomalacia HTN: Currently not taking any medications. Bp is well controlled. Averages 120's-130's. HFpEF: [facility] [...] preserved ejection fraction (CMS/HCC) Follows Cardiology- [facility] Was seen in May 2024 Lasix 20mg Relevant Orders Comprehensive metabolic panel CBC and differential Hyperlipidemia (CMS/HCC) Currently not on any medications: Lifestyle and dietary modifications. Recheck lipid pane today. Relevant Orders Lipid panel Comprehensive metabolic panel CBC and differential Morbid obesity with BMI of 40.0-44.9, adult (CMS/[facility]) Discussed with patient their BMI (actual, verses recommended). We have also discussed lifestyle modifications: attempts to perform physical activity as chronic conditions allow, also to monitor dietary intake: increasing protein/fruits/veggies and lowering carb intake (unless contraindicated). Limit sodas, juices, and sugary drinks. Relevant Orders Comprehensive metabolic panel CBC and differential Severe persistent asthma without complication ([facility]) Currently taking Trelegy Singulair Albuterol Was seen on 06/12/24 for Hospital follow up. Is following closely with Pulmonology; Tracheobronchomalacia documented in this encounter [facility] 07-11-2024 Instructions Aida Reese NP - 07/11/2024 8:30 AM EDT FASTING labs ordered. Nothing to eat or drink for 12 hours prior to blood draw. Water and black coffee ok. documented in this encounter [facility] 07-02-2024 Note Patient: Yannick Champion Pre-sedation Evaluation: Sedation necessary for: Analgesia Requesting service: Pulmonary History of Present Illness: Refer to H &P MANAGEMENT EXPERT/Current Medications: Reviewed Recent sedation/surgery (24 hours): No Review of Systems: Negative NPO guidelines met: Yes Physical Exam: Airway Mallampati: II Neck ROM: full Cardiovascular (-) murmur, friction rub, carotid bruits Dental Pulmonary (+) on nasal cannula (-) tachypnea, accessory muscle use (-) wheezes, rales Plan: ASA 3 Moderate Proceed with consious sedation for Bronchoscopy and BAL [facility] 07-02-2024 Note Attestation signed by Ghulam Petersen MD at 07/08/2024 2:41 PM I was present and supervised the entire procedure PULMONARY & CRITICAL CARE MEDICINE PROCEDURE NOTE FLEXIBLE FIBEROPTIC BRONCHOSCOPY INDICATIONS AND HISTORY: Please refer to H&P PROCEDURE: Flexible Fiberoptic Bronchoscopy with airway inspection ANESTHESIA: Conscious sedation PREPROCEDURE DIAGNOSIS: Recurrent pneumonias, concern for dynamic airway collapse, chronic cough POSTPROCEDURE DIAGNOSIS: Severe tracheobronchomalacia PROCEDURE SHOW DESIGN SUPERVISOR: Goran Canseco ATTENDING PHYSICIAN: Dr. Ghulam Petersen [...] by trained RN and supervised by the [employer]. Continuous monitoring of heart rate, respiratory rate, [...] 1-2 weeks for treatment options for tracheobronchomalacia [facility] 06-25-2024 Note Attestation signed by Emelia Yoo [...] Age: 68 y.o. : 1955 Account No.: [id number] Referring physician: Dr. Bo Mcclain Chief complaint: Recurreny pneumonia HPI Diana Champion is a 68 y.o. female with PMHx of reportedly COPD, chronic hypoxic respiratory failure on 2L home O2 who is presenting to clinic as a new patient after being referred by Dr. Bo Baker of [facility]. Patient has been admitted 4 times [...] years. 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 Her family history is positive for COPD [...] Past Medical History: Diagnosis Date Asthma Cancer ([facility]) COPD (chronic obstructive pulmonary disease) ([facility]) Coronary artery disease GERD (gastroesophageal reflux disease) [...] mouth every other day. Yes Historical Provider, [id number]-[id number]-[id number] 100-62.5-25 mcg blister with device Yes Historical [...] mEq ER ta (more content not included)... [facility] 05-13-2024 Note [facility] Cardiology Clinic Note Chief Complaint: Patient here for 1 year follow up CAD and hypertension. She was recently discharged from [facility] for Covid-19. She says hydrochlorothiazide was [...] breath since then. She has seen her gaming associate. Her chest pain is noncardiac. She has [...] a past medical history of Asthma, Cancer ([facility]), COPD (chronic obstructive pulmonary disease) ([facility]), Coronary artery disease, GERD (gastroesophageal reflux disease), [...] mouth every other day., Disp: , Rfl: [id number]-[id number] 100-62.5-25 mcg blister with device, , Disp: [...] Examination: GENERAL: a (more content not included)... [facility] 09-07-2023 Evaluation note Encounter Date Diagnosis Assessment Notes Sep, Hypomagnesemia (ICD-10 - E83.42) [facility] Other 10-23-2023 Evaluation note* Encounter Date Diagnosis Assessment Notes Treatment Notes Treatment Clinical Notes Aug, Nico bolden cr kid I-IV (ICD-10 - I12.9) [facility] Other 10-12-2023 Evaluation note* Encounter Date Diagnosis [...] PPI induced GI losses. Continue oral Magnesium [facility] Other 05-19-2023 NotePROCEDURE: XR HIP RT 2 3V W PELVIS HISTORY: Pain in right hip joint , chronic COMPARISON: XR L-spine 02/26/2019, XR left hip with pelvis 03/11/2017 FINDINGS: BONES:Complete loss of the right hip joint space with ucdh-lz-chjl articulation, subchondral sclerosis and cysts, and large periarticular degenerative osteophytes. No fracture or dislocation. Left hip replacement. Mechanical fusion of L5-S1 and moderate dextroscoliosis of lumbar spine. SOFT TISSUES:No visible soft tissue swelling. EFFUSION:None visible. OTHER: Negative. IMPRESSION: 1. Marked degenerative joint disease of the right hip; progressed since prior study. 2. Stable surgical changes. Electronically authenticated by: STEPH GRANADOS Date: 2023-03-24 12:55[facility]04-27-2023 Evaluation note* Encounter Date Diagnosis [...] PPI induced GI losses. Continue oral Magnesium [facility] Other 02-02-[facility]23 [facility]* Encounter Date Diagnosis Assessment Notes Treatment Notes Treatment Clinical Notes Nov, Hypokalemia (ICD-10 - E87.6) Nov, Hypomagnesemia (ICD-10 - E83.42) [facility] Other 10-04-2022 Evaluation note* Encounter Date Diagnosis [...] office does not accept her new insurance. [facility] Other 09-02-2022 Evaluation note* Encounter Date Diagnosis Assessment Notes Treatment Notes Treatment Clinical Notes Jul, History of colon cancer (ICD-10 - Z85.038) [facility] Other 01-12-2022 Evaluation note* Encounter Date Diagnosis [...] potassium wasting. I have prescribed oral potassium. [facility] Other 10-25-2021 Evaluation note* Encounter Date Diagnosis [...] Patient care instructions given in writting by [facility] Care At Home document [facility] Other Evaluation + Plan note Future Appointments Appointment Date:01/13/2025 09:40:00 AM Scheduled Provider:MAG BLOUNT PA-C Location:[facility] Appointment Type:URO Office Visit Diagnostic Tests Pending * Urine Culture 10/15/24 [facility] Evaluation + Plan note Future Appointments Appointment Date:01/13/2025 09:40:00 AM Scheduled Provider:MAG BLOUNT PA-C Location:[facility] Appointment Type:URO Office Visit [facility] evaluation + Plan note Future Appointments Appointment Date:06/23/2025 09:40:00 AM Scheduled Provider:MAG BLOUNT PA-C Location:[facility] Appointment Type:URO Office Visit [facility] evaluation + Plan note Future Appointments Appointment Date:07/08/2025 02:30:00 PM Scheduled Provider:Amalia Stephens PA-C Location:[facility] Appointment Type:URO Office Visit [facility] evaluation noteNo [employer] Other Evaluation note* Diagnosis Onset Date Resolution Status History of colon cancer acut e [facility] Work Phone: evaluation note* Diagnosis Onset Date Resolution Status Hypokalemia acute Hypomagnesemia acute Stage 3 chronic kidney disease acute COVID noneactive Pneumonia noneactive [facility] Work Phone: evaluation note* Diagnosis Moderate persistent asthma with exacerbation ([facility]/HCC)- Primary Unspecified asthma, with exacerbation Non-recurrent acute suppurative otitis media of both ears without spontaneous rupture of tympanic membranes Colorectal cancer ([facility]) Malignant neoplasm of colon, unspecified site Chronic heart failure with preserved ejection fraction ([facility]) Pulmonary emphysema, unspecified emphysema type ([facility]/HCC) Moderate episode of recurrent major depressive disorder ([facility]/HCC)- Primary Moderate persistent asthma with exacerbation ([facility]) Unspecified asthma, with exacerbation Medicare annual wellness visit, subsequent Severe persistent asthma with acute exacerbation ([facility])- Primary Hospital discharge follow-up Other follow-up examination Severe persistent asthma without complication ([facility]/HCC)- Primary Essential hypertension ([facility]/HCC) Unspecified essential hypertension JEANNE (acute kidney injury) ([facility]) Leukocytosis, unspecified type Chronic respiratory failure with hypoxia ([facility]) Chronic bilateral low back pain without sciatica- Primary Vitamin D deficiency Chronic bilateral low back pain without sciatica- Primary Pneumonia due to infectious organism, unspecified laterality, unspecified part of lung- Primary Screening mammogram for breast cancer Chronic respiratory failure with hypoxia ([facility]) Pulmonary emphysema, unspecified emphysema type ([facility]/HCC) Essential hypertension ([facility]) Unspecified essential hypertension Morbid obesity with BMI of 40.0-44.9, adult ([facility]) Hospital discharge follow-up- Primary Other follow-up examination Chronic respiratory failure with hypoxia ([facility]/HCC) Severe persistent asthma without complication ([facility]/HCC) Severe persistent asthma with acute exacerbation ([facility]/HCC)- Primary Severe persistent asthma with exacerbation ([facility]/HCC)- Primary Unspecified asthma, with exacerbation Hospital discharge follow-up- Primary Other follow-up examination Chronic respiratory failure with hypoxia ([facility])- Primary Hospital discharge follow-up Other follow-up examination Benign essential HTN ([facility]/HCC) Chronic heart failure with preserved ejection fraction (CMS/HCC) Severe persistent asthma without complication (CMS/HCC) Moderate mixed hyperlipidemia not requiring statin therapy ([facility]) Morbid obesity with BMI of 40.0-44.9, adult ([facility]) Opioid use Chronic, continuous use of opioids Chronic back pain greater than 3 months duration Moderate persistent asthma with exacerbation ([facility])- Primary Unspecified asthma, with exacerbation Diarrhea, unspecified type documented in this encounter [facility] HealthcareEvaluation note* Diagnosis Moderate persistent asthma with exacerbation ([facility]/HCC)- Primary Unspecified asthma, with exacerbation Non-recurrent acute suppurative otitis media of both ears without spontaneous rupture of tympanic membranes Colorectal cancer ([facility]) Malignant neoplasm of colon, unspecified site Chronic heart failure with preserved ejection fraction ([facility]) Pulmonary emphysema, unspecified emphysema type ([facility]/HCC) Moderate episode of recurrent major depressive disorder ([facility])- Primary Moderate persistent asthma with exacerbation ([facility]) Unspecified asthma, with exacerbation Medicare annual wellness visit, subsequent Severe persistent asthma with acute exacerbation ([facility])- Primary Hospital discharge follow-up Other follow-up examination Severe persistent asthma without complication ([facility]/HCC)- Primary Essential hypertension ([facility]/HCC) Unspecified essential hypertension JEANNE (acute kidney injury) ([facility]) Leukocytosis, unspecified type Chronic respiratory failure with hypoxia ([facility]) Chronic bilateral low back pain without sciatica- Primary Vitamin D deficiency Chronic bilateral low back pain without sciatica- Primary Pneumonia due to infectious organism, unspecified laterality, unspecified part of lung- Primary Screening mammogram for breast cancer Chronic respiratory failure with hypoxia ([facility]) Pulmonary emphysema, unspecified emphysema type ([facility]/HCC) Essential hypertension ([facility]) Unspecified essential hypertension Morbid obesity with BMI of 40.0-44.9, adult ([facility]) Hospital discharge follow-up- Primary Other follow-up examination Chronic respiratory failure with hypoxia ([facility]/HCC) Severe persistent asthma without complication ([facility]/HCC) Severe persistent asthma with acute exacerbation ([facility]/HCC)- Primary Severe persistent asthma with exacerbation ([facility]/HCC)- Primary Unspecified asthma, with exacerbation Hospital discharge follow-up- Primary Other follow-up examination Chronic respiratory failure with hypoxia ([facility]/HCC)- Primary Hospital discharge follow-up Other follow-up examination Benign essential HTN ([facility]/HCC) Chronic heart failure with preserved ejection fraction (CMS/HCC) Severe persistent asthma without complication (CMS/HCC) Moderate mixed hyperlipidemia not requiring statin therapy ([facility]/HCC) Morbid obesity with BMI of 40.0-44.9, adult ([facility]) Opioid use Chronic, continuous use of opioids Chronic back pain greater than 3 months duration Restless leg syndrome Restless legs syndrome (RLS) documented in this encounter [facility] HealthcareEvaluation note* Diagnosis Moderate persistent asthma with exacerbation ([facility]/HCC)- Primary Unspecified asthma, with exacerbation Non-recurrent acute suppurative otitis media of both ears without spontaneous rupture of tympanic membranes Colorectal cancer ([facility]) Malignant neoplasm of colon, unspecified site Chronic heart failure with preserved ejection fraction ([facility]/HCC) Pulmonary emphysema, unspecified emphysema type ([facility]) Moderate episode of recurrent major depressive disorder ([facility])- Primary Moderate persistent asthma with exacerbation ([facility]) Unspecified asthma, with exacerbation Medicare annual wellness visit, subsequent Severe persistent asthma with acute exacerbation ([facility]/HCC)- Primary Hospital discharge follow-up Other follow-up examination Severe persistent asthma without complication ([facility]/HCC)- Primary Essential hypertension ([facility]/HCC) Unspecified essential hypertension JEANNE (acute kidney injury) ([facility]) Leukocytosis, unspecified type Chronic respiratory failure with hypoxia ([facility]/HCC) Chronic bilateral low back pain without sciatica- Primary Vitamin D deficiency Chronic bilateral low back pain without sciatica- Primary Pneumonia due to infectious organism, unspecified laterality, unspecified part of lung- Primary Screening mammogram for breast cancer Chronic respiratory failure with hypoxia (CMS/HCC) Pulmonary emphysema, unspecified emphysema type ([facility]/HCC) Essential hypertension ([facility]/HCC) Unspecified essential hypertension Morbid obesity with BMI of 40.0-44.9, adult ([facility]) Hospital discharge follow-up- Primary Other follow-up examination Chronic respiratory failure with hypoxia (CMS/HCC) Severe persistent asthma without complication (CMS/HCC) Severe persistent asthma with acute exacerbation (CMS/HCC)- Primary Severe persistent asthma with exacerbation ([facility]/HCC)- Primary Unspecified asthma, with exacerbation Hospital discharge follow-up- Primary Other follow-up examination Chronic respiratory failure with hypoxia (CMS/HCC)- Primary Hospital discharge follow-up Other follow-up examination Benign essential HTN (CMS/HCC) Chronic heart failure with preserved ejection fraction ([facility]/HCC) Severe persistent asthma without complication ([facility]/HCC) Moderate mixed hyperlipidemia not requiring statin therapy (CMS/HCC) Morbid obesity with BMI of 40.0-44.9, adult ([facility]) Opioid use Chronic, continuous use of opioids Chronic back pain greater than 3 months duration Gastroesophageal reflux disease without esophagitis Esophageal reflux documented in this encounter [facility] HealthcareEvaluation noteNo assessment information availableLake [facility] Work Phone: Evaluation note* Diagnosis Moderate persistent asthma with exacerbation ([facility]/HCC)- Primary Unspecified asthma, with exacerbation Non-recurrent acute suppurative otitis media of both ears without spontaneous rupture of tympanic membranes Colorectal cancer ([facility]/HCC) Malignant neoplasm of colon, unspecified site Chronic heart failure with preserved ejection fraction ([facility]/HCC) Pulmonary emphysema, unspecified emphysema type ([facility]/HCC) Moderate episode of recurrent major depressive disorder ([facility]/HCC)- Primary Moderate persistent asthma with exacerbation ([facility]/HCC) Unspecified asthma, with exacerbation Medicare annual wellness visit, subsequent Severe persistent asthma with acute exacerbation ([facility]/HCC)- Primary Hospital discharge follow-up Other follow-up examination Severe persistent asthma without complication (CMS/HCC)- Primary Essential hypertension ([facility]/HCC) Unspecified essential hypertension JEANNE (acute kidney injury) ([facility]/HCC) Leukocytosis, unspecified type Chronic respiratory failure with hypoxia ([facility]/HCC) Chronic bilateral low back pain without sciatica- Primary Vitamin D deficiency Chronic bilateral low back pain without sciatica- Primary Pneumonia due to infectious organism, unspecified laterality, unspecified part of lung- Primary Screening mammogram for breast cancer Chronic respiratory failure with hypoxia (CMS/HCC) Pulmonary emphysema, unspecified emphysema type (CMS/HCC) Essential hypertension ([facility]/HCC) Unspecified essential hypertension Morbid obesity with BMI of 40.0-44.9, adult ([facility]) Hospital discharge follow-up- Primary Other follow-up examination Chronic respiratory failure with hypoxia (CMS/HCC) Severe persistent asthma without complication (CMS/HCC) Severe persistent asthma with acute exacerbation (CMS/HCC)- Primary Severe persistent asthma with exacerbation ([facility]/HCC)- Primary Unspecified asthma, with exacerbation Hospital discharge follow-up- Primary Other follow-up examination Chronic respiratory failure with hypoxia (CMS/HCC)- Primary Hospital discharge follow-up Other follow-up examination Benign essential HTN (CMS/HCC) Chronic heart failure with preserved ejection fraction (CMS/HCC) Severe persistent asthma without complication (CMS/HCC) Moderate mixed hyperlipidemia not requiring statin therapy ([facility]) Morbid obesity with BMI of 40.0-44.9, adult ([facility]) Opioid use Chronic, continuous use of opioids Chronic back pain greater than 3 months duration Vaginal guero- Primary Candidiasis of vulva and vagina documented in this encounter [facility] HealthcareEvaluation note* Diagnosis Moderate persistent asthma with exacerbation (CMS/HCC)- Primary Unspecified asthma, with exacerbation Non-recurrent acute suppurative otitis media of both ears without spontaneous rupture of tympanic membranes Colorectal cancer ([facility]) Malignant neoplasm of colon, unspecified site Chronic heart failure with preserved ejection fraction ([facility]/HCC) Pulmonary emphysema, unspecified emphysema type ([facility]/HCC) Moderate episode of recurrent major depressive disorder ([facility])- Primary Moderate persistent asthma with exacerbation ([facility]) Unspecified asthma, with exacerbation Medicare annual wellness visit, subsequent Severe persistent asthma with acute exacerbation ([facility]/HCC)- Primary Hospital discharge follow-up Other follow-up examination Severe persistent asthma without complication (CMS/HCC)- Primary Essential hypertension ([facility]) Unspecified essential hypertension JEANNE (acute kidney injury) ([facility] [facility]) Leukocytosis, unspecified type Chronic respiratory failure with hypoxia ([facility]/HCC) Chronic bilateral low back pain without sciatica- Primary Vitamin D deficiency Chronic bilateral low back pain without sciatica- Primary Pneumonia due to infectious organism, unspecified laterality, unspecified part of lung- Primary Screening mammogram for breast cancer Chronic respiratory failure with hypoxia (/HCC) Pulmonary emphysema, unspecified emphysema type ([facility]/HCC) Essential hypertension ([facility]/HCC) Unspecified essential hypertension Morbid obesity with BMI of 40.0-44.9, adult ([facility]) Hospital discharge follow-up- Primary Other follow-up examination Chronic respiratory failure with hypoxia (CMS/HCC) Severe persistent asthma without complication (CMS/HCC) Severe persistent asthma with acute exacerbation ([facility]/HCC)- Primary Severe persistent asthma with exacerbation ([facility]/HCC)- Primary Unspecified asthma, with exacerbation Hospital discharge follow-up- Primary Other follow-up examination Chronic respiratory failure with hypoxia ([facility])- Primary Hospital discharge follow-up Other follow-up examination Benign essential HTN ([facility]) Chronic heart failure with preserved ejection fraction ([facility]) Severe persistent asthma without complication ([facility]) Moderate mixed hyperlipidemia not requiring statin therapy ([facility]) Morbid obesity with BMI of 40.0-44.9, adult ([facility]) Opioid use Chronic, continuous use of opioids Chronic back pain greater than 3 months duration Restless leg syndrome Restless legs syndrome (RLS) documented in this encounter [facility] HealthcareEvaluation note* Diagnosis Moderate persistent asthma with exacerbation ([facility]/HCC)- Primary Unspecified asthma, with exacerbation Non-recurrent acute suppurative otitis media of both ears without spontaneous rupture of tympanic membranes Colorectal cancer ([facility]) Malignant neoplasm of colon, unspecified site Chronic heart failure with preserved ejection fraction ([facility]) Pulmonary emphysema, unspecified emphysema type ([facility]) Moderate episode of recurrent major depressive disorder ([facility])- Primary Moderate persistent asthma with exacerbation ([facility]) Unspecified asthma, with exacerbation Medicare annual wellness visit, subsequent Severe persistent asthma with acute exacerbation ([facility])- Primary Hospital discharge follow-up Other follow-up examination Severe persistent asthma without complication ([facility]/HCC)- Primary Essential hypertension ([facility]) Unspecified essential hypertension JEANNE (acute kidney injury) ([facility]) Leukocytosis, unspecified type Chronic respiratory failure with hypoxia ([facility]) Chronic bilateral low back pain without sciatica- Primary Vitamin D deficiency Chronic bilateral low back pain without sciatica- Primary Pneumonia due to infectious organism, unspecified laterality, unspecified part of lung- Primary Screening mammogram for breast cancer Chronic respiratory failure with hypoxia ([facility]) Pulmonary emphysema, unspecified emphysema type ([facility]) Essential hypertension ([facility]) Unspecified essential hypertension Morbid obesity with BMI of 40.0-44.9, adult ([facility]) Hospital discharge follow-up- Primary Other follow-up examination Chronic respiratory failure with hypoxia ([facility]) Severe persistent asthma without complication ([facility]/HCC) Severe persistent asthma with acute exacerbation ([facility]/HCC)- Primary Severe persistent asthma with exacerbation ([facility]/HCC)- Primary Unspecified asthma, with exacerbation Hospital discharge follow-up- Primary Other follow-up examination Chronic respiratory failure with hypoxia (CMS/HCC)- Primary Hospital discharge follow-up Other follow-up examination Benign essential HTN (CMS/HCC) Chronic heart failure with preserved ejection fraction (CMS/HCC) Severe persistent asthma without complication (CMS/HCC) Moderate mixed hyperlipidemia not requiring statin therapy (CMS/HCC) Morbid obesity with BMI of 40.0-44.9, adult ([facility]) Opioid use Chronic, continuous use of opioids Chronic back pain greater than 3 months duration Urge incontinence- Primary Morbid obesity with BMI of 40.0-44.9, adult ([facility]) 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 Stage 3a chronic kidney disease (HCC) (CMS/HCC) Chronic respiratory failure with hypoxia (CMS/HCC) documented in this encounter [facility] HealthcareEvaluation note* Diagnosis Moderate persistent asthma with exacerbation (CMS/HCC)- Primary Unspecified asthma, with exacerbation Non-recurrent acute suppurative otitis media of both ears without spontaneous rupture of tympanic membranes Colorectal cancer ([facility]/HCC) Malignant neoplasm of colon, unspecified site Chronic heart failure with preserved ejection fraction (CMS/HCC) Pulmonary emphysema, unspecified emphysema type (CMS/HCC) Moderate episode of recurrent major depressive disorder (CMS/HCC)- Primary Moderate persistent asthma with exacerbation ([facility]/HCC) Unspecified asthma, with exacerbation Medicare annual wellness visit, subsequent Severe persistent asthma with acute exacerbation ([facility]/HCC)- Primary Hospital discharge follow-up Other follow-up examination [...] Morbid obesity with BMI of 40.0-44.9, adult ([facility]) Hospital discharge follow-up- Primary Other follow-up examination [...] Morbid obesity with BMI of 40.0-44.9, adult ([facility]) 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 Stage 3a chronic kidney disease (HCC) ([facility]/HCC) Chronic respiratory failure with hypoxia (CMS/HCC) Neoplasm of unspecified behavior of bone, soft tissue, and skin- Primary documented in this encounter [facility] HealthcareEvaluation note* Diagnosis Moderate persistent asthma with exacerbation (CMS/HCC)- Primary Unspecified asthma, with exacerbation Non-recurrent acute suppurative otitis media of both ears without spontaneous rupture of tympanic membranes Colorectal cancer ([facility]/HCC) Malignant neoplasm of colon, unspecified site Chronic heart failure with preserved ejection fraction (CMS/HCC) Pulmonary emphysema, unspecified emphysema type (CMS/HCC) Moderate episode of recurrent major depressive disorder (CMS/HCC)- Primary Moderate persistent asthma with exacerbation (CMS/HCC) Unspecified asthma, with exacerbation Medicare annual wellness visit, subsequent Severe persistent asthma with acute exacerbation ([facility]/HCC)- Primary Hospital discharge follow-up Other follow-up examination [...] Morbid obesity with BMI of 40.0-44.9, adult ([facility]) 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 Stage 3a chronic kidney disease (HCC) ([facility]/HCC) Chronic respiratory failure with hypoxia (CMS/HCC) Urge [...] (CMS/HCC)- Primary Moderate persistent asthma with exacerbation ([facility]/HCC) Unspecified asthma, with exacerbation Medicare annual wellness [...] Morbid obesity with BMI of 40.0-44.9, adult ([facility]) Opioid use Chronic, continuous use of opioids Chronic back pain greater than 3 months duration Urge incontinence- Primary Morbid obesity with BMI of 40.0-44.9, adult ([facility]) 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 [...] Morbid obesity with BMI of 40.0-44.9, adult ([facility]) documented in this encounter [facility] HealthcareEvaluation [facility]* [...] (CMS/HCC)- Primary Moderate persistent asthma with exacerbation ([facility]/HCC) Unspecified asthma, with exacerbation Medicare annual wellness visit, subsequent Severe persistent asthma with acute exacerbation ([facility]/HCC)- Primary Hospital discharge follow-up Other follow-up examination Severe persistent asthma without complication (CMS/HCC)- Primary Essential hypertension ([facility]/HCC) Unspecified essential hypertension JEANNE (acute kidney injury) ([facility]) Leukocytosis, unspecified type Chronic respiratory failure with hypoxia ([facility]) Chronic bilateral low back pain without sciatica- Primary Vitamin D deficiency Chronic bilateral low back pain without sciatica- Primary Pneumonia due to infectious organism, unspecified laterality, unspecified part of lung- Primary Screening mammogram for breast cancer Chronic respiratory failure with hypoxia ([facility]) Pulmonary emphysema, unspecified emphysema type ([facility]) Essential hypertension ([facility]) Unspecified essential hypertension Morbid obesity with BMI of 40.0-44.9, adult ([facility]) Hospital discharge follow-up- Primary Other follow-up examination Chronic respiratory failure with hypoxia ([facility]/HCC) Severe persistent asthma without complication ([facility]) Severe persistent asthma with acute exacerbation ([facility]/HCC)- Primary Severe persistent asthma with exacerbation ([facility]/HCC)- Primary Unspecified asthma, with exacerbation Hospital discharge follow-up- Primary Other follow-up examination Chronic respiratory failure with hypoxia ([facility])- Primary Hospital discharge follow-up Other follow-up examination Benign essential HTN ([facility]) Chronic heart failure with preserved ejection fraction ([facility]/HCC) Severe persistent asthma without complication ([facility]/HCC) Moderate mixed hyperlipidemia not requiring statin therapy ([facility]) Morbid obesity with BMI of 40.0-44.9, adult ([facility]) Opioid use Chronic, continuous use of opioids Chronic back pain greater than 3 months duration Urge incontinence- Primary Morbid obesity with BMI of 40.0-44.9, adult ([facility]) 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 Stage 3a chronic kidney disease (HCC) ([facility]) Chronic respiratory failure with hypoxia ([facility]) Moderate episode of recurrent major depressive disorder ([facility]) Restless leg syndrome Restless legs syndrome (RLS) documented in this encounter [facility]Evaluation [facility]* Diagnosis Moderate persistent asthma with exacerbation ([facility]/HCC)- Primary Unspecified asthma, with exacerbation Non-recurrent acute [...] Morbid obesity with BMI of 40.0-44.9, adult ([facility]) Hospital discharge follow-up- Primary Other follow-up examination [...] Morbid obesity with BMI of 40.0-44.9, adult ([facility]) Opioid use Chronic, continuous use of opioids Chronic back pain greater than 3 months duration Urge incontinence- Primary Morbid obesity with BMI of 40.0-44.9, adult ([facility]/HCC) 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 Stage 3a chronic kidney disease (HCC) (CMS/HCC) Chronic respiratory failure with hypoxia ([facility]/HCC) Chronic obstructive pulmonary disease with acute lower respiratory infection ([facility]/HCC)- Primary Primary HSV infection of mouth documented [...] Unspecified essential hypertension JEANNE (acute kidney injury) ([facility]) Leukocytosis, unspecified type Chronic respiratory failure with hypoxia (CMS/HCC) Chronic bilateral low back pain without sciatica- Primary Vitamin D deficiency Chronic bilateral low back pain without sciatica- Primary Pneumonia due to infectious organism, unspecified laterality, unspecified part of lung- Primary Screening mammogram for breast cancer Chronic respiratory failure with hypoxia (CMS/HCC) Pulmonary emphysema, unspecified emphysema type (CMS/HCC) Essential hypertension ([facility]/HCC) Unspecified essential hypertension Morbid obesity with BMI of 40.0-44.9, adult ([facility]) Hospital discharge follow-up- Primary Other follow-up examination Chronic respiratory failure with hypoxia (CMS/HCC) Severe persistent asthma without complication (CMS/HCC) Severe persistent asthma with acute exacerbation (CMS/HCC)- Primary Severe persistent asthma with exacerbation ([facility]/HCC)- Primary Unspecified asthma, with exacerbation Hospital discharge follow-up- Primary Other follow-up examination Chronic respiratory failure with hypoxia (CMS/HCC)- Primary Hospital discharge follow-up Other follow-up examination Benign essential HTN (CMS/HCC) Chronic heart failure with preserved ejection fraction (CMS/HCC) Severe persistent asthma without complication (CMS/HCC) Moderate mixed hyperlipidemia not requiring statin therapy ([facility]/HCC) Morbid obesity with BMI of 40.0-44.9, adult ([facility]) Opioid use Chronic, continuous use of opioids Chronic back pain greater than 3 months duration Urge incontinence- Primary Morbid obesity with BMI of 40.0-44.9, adult ([facility]) 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0-44.9, adult ([facility]) Hospital discharge follow-up- Primary Other follow-up examination Chronic respiratory failure with hypoxia (CMS/HCC) Severe persistent asthma without complication (CMS/HCC) Severe persistent asthma with acute exacerbation (CMS/HCC)- Primary Severe persistent asthma with exacerbation ([facility]/HCC)- Primary Unspecified asthma, with exacerbation Hospital discharge follow-up- Primary Other follow-up examination Chronic respiratory failure with hypoxia (CMS/HCC)- Primary Hospital discharge follow-up Other follow-up examination Benign essential HTN (CMS/HCC) Chronic heart failure with preserved ejection fraction (CMS/HCC) Severe persistent asthma without complication (CMS/HCC) Moderate mixed hyperlipidemia not requiring statin therapy ([facility]/HCC) Morbid obesity with BMI of 40.0-44.9, adult ([facility]) Opioid use Chronic, continuous use of opioids Chronic back pain greater than 3 months duration Urge incontinence- Primary Morbid obesity with BMI of 40.0-44.9, adult ([facility]) 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 Stage 3a chronic kidney disease (HCC) ([facility]/HCC) Chronic respiratory failure with hypoxia ([facility]) Chronic obstructive pulmonary disease with acute lower respiratory infection ([facility])- Primary Primary HSV infection of mouth Pulmonary emphysema, unspecified emphysema type ([facility]/HCC)- Primary Gastroesophageal reflux disease without esophagitis Esophageal reflux documented in this encounter [facility] HealthcareEvaluation note* Diagnosis Moderate persistent asthma with exacerbation ([facility]/HCC)- Primary Unspecified asthma, with exacerbation Non-recurrent acute suppurative otitis media of both ears without spontaneous rupture of tympanic membranes Colorectal cancer ([facility]) Malignant neoplasm of colon, unspecified site Chronic heart failure with preserved ejection fraction ([facility]) Pulmonary emphysema, unspecified emphysema type ([facility]/HCC) Moderate episode of recurrent major depressive disorder ([facility])- Primary Moderate persistent asthma with exacerbation ([facility]) Unspecified asthma, with exacerbation Medicare annual wellness visit, subsequent Severe persistent asthma with acute exacerbation ([facility]/HCC)- Primary Hospital discharge follow-up Other follow-up examination Severe persistent asthma without complication (CMS/HCC)- Primary Essential hypertension ([facility]/HCC) Unspecified essential hypertension JEANNE (acute kidney injury) ([facility]) Leukocytosis, unspecified type Chronic respiratory failure with hypoxia (CMS/HCC) Chronic bilateral low back pain without sciatica- Primary Vitamin D deficiency Chronic bilateral low back pain without sciatica- Primary Pneumonia due to infectious organism, unspecified laterality, unspecified part of lung- Primary Screening mammogram for breast cancer Chronic respiratory failure with hypoxia (CMS/HCC) Pulmonary emphysema, unspecified emphysema type ([facility]/HCC) Essential hypertension ([facility]/HCC) Unspecified essential hypertension Morbid obesity with BMI of 40.0-44.9, adult ([facility]) Hospital discharge follow-up- Primary Other follow-up examination Chronic respiratory failure with hypoxia (CMS/HCC) Severe persistent asthma without complication (CMS/HCC) Severe persistent asthma with acute exacerbation (CMS/HCC)- Primary Severe persistent asthma with exacerbation ([facility]/HCC)- Primary Unspecified asthma, with exacerbation Hospital discharge follow-up- Primary Other follow-up examination Chronic respiratory failure with hypoxia (CMS/HCC)- Primary Hospital discharge follow-up Other follow-up examination Benign essential HTN ([facility]) Chronic heart failure with preserved ejection fraction ([facility]) Severe persistent asthma without complication ([facility] Moderate mixed hyperlipidemia not requiring statin therapy ([facility]) Morbid obesity with BMI of 40.0-44.9, adult ([facility]) Opioid use Chronic, continuous use of opioids Chronic back pain greater than 3 months duration Urge incontinence- Primary Morbid obesity with BMI of 40.0-44.9, adult ([facility]) 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 Stage 3a chronic kidney disease (HCC) ([facility] Chronic respiratory failure with hypoxia ([facility]) Chronic obstructive pulmonary disease with acute lower respiratory infection ([facility])- Primary Primary HSV infection of mouth Pulmonary emphysema, unspecified emphysema type ([facility])- Primary Restless leg syndrome Restless legs syndrome (RLS) documented in this encounter [facility] HealthcareEvaluation note* Diagnosis Moderate persistent asthma with exacerbation ([facility])- Primary Unspecified asthma, with exacerbation Non-recurrent acute suppurative otitis media of both ears without spontaneous rupture of tympanic membranes Colorectal cancer ([facility]) Malignant neoplasm of colon, unspecified site Chronic heart failure with preserved ejection fraction ([facility]) Pulmonary emphysema, unspecified emphysema type ([facility]) Moderate episode of recurrent major depressive disorder ([facility])- Primary Moderate persistent asthma with exacerbation ([facility]) Unspecified asthma, with exacerbation Medicare annual wellness visit, subsequent Severe persistent asthma with acute exacerbation ([facility])- Primary Hospital discharge follow-up Other follow-up examination Severe persistent asthma without complication ([facility])- Primary Essential hypertension ([facility]) Unspecified essential hypertension JEANNE (acute kidney injury) ([facility]) Leukocytosis, unspecified type Chronic respiratory failure with hypoxia ([facility]) Chronic bilateral low back pain without sciatica- Primary Vitamin D deficiency Chronic bilateral low back pain without sciatica- Primary Pneumonia due to infectious organism, unspecified laterality, unspecified part of lung- Primary Screening mammogram for breast cancer Chronic respiratory failure with hypoxia ([facility]) Pulmonary emphysema, unspecified emphysema type ([facility]/HCC) Essential hypertension ([facility]) Unspecified essential hypertension Morbid obesity with BMI of 40.0-44.9, adult ([facility]) Hospital discharge follow-up- Primary Other follow-up examination Chronic respiratory failure with hypoxia (CMS/HCC) Severe persistent asthma without complication (CMS/HCC) Severe persistent asthma with acute exacerbation (CMS/HCC)- Primary Severe persistent asthma with exacerbation ([facility]/HCC)- Primary Unspecified asthma, with exacerbation Hospital discharge follow-up- Primary Other follow-up examination Chronic respiratory failure with hypoxia (CMS/HCC)- Primary Hospital discharge follow-up Other follow-up examination Benign essential HTN ([facility]/HCC) Chronic heart failure with preserved ejection fraction ([facility]/HCC) Severe persistent asthma without complication (CMS/HCC) Moderate mixed hyperlipidemia not requiring statin therapy (CMS/HCC) Morbid obesity with BMI of 40.0-44.9, adult ([facility]) Opioid use Chronic, continuous use of opioids Chronic back pain greater than 3 months duration Urge incontinence- Primary Morbid obesity with BMI of 40.0-44.9, adult ([facility]) 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 Stage 3a chronic kidney disease (HCC) ([facility]) Chronic respiratory failure with hypoxia ([facility]) Chronic obstructive pulmonary disease with acute lower respiratory infection ([facility])- Primary Primary HSV infection of mouth Pulmonary emphysema, unspecified emphysema type ([facility]/HCC)- Primary Nevus lipomatosus cutaneus superficialis- Primary Lipoma of other skin and subcutaneous tissue Squamous cell carcinoma of skin of chest documented in this encounter [facility] HealthcareEvaluation note* Diagnosis Moderate persistent asthma with exacerbation ([facility]/HCC)- Primary Unspecified asthma, with exacerbation Non-recurrent acute suppurative otitis media of both ears without spontaneous rupture of tympanic membranes Colorectal cancer ([facility]) Malignant neoplasm of colon, unspecified site Chronic heart failure with preserved ejection fraction ([facility]/HCC) Pulmonary emphysema, unspecified emphysema type ([facility]/HCC) Moderate episode of recurrent major depressive disorder ([facility]/HCC)- Primary Moderate persistent asthma with exacerbation ([facility]/HCC) Unspecified asthma, with exacerbation Medicare annual wellness visit, subsequent Severe persistent asthma with acute exacerbation ([facility]/HCC)- Primary Hospital discharge follow-up Other follow-up examination Severe persistent asthma without complication ([facility]/HCC)- Primary Essential hypertension ([facility]/HCC) Unspecified essential hypertension JEANNE (acute kidney injury) ([facility]) Leukocytosis, unspecified type Chronic respiratory failure with hypoxia ([facility]/HCC) Chronic bilateral low back pain without sciatica- Primary Vitamin D deficiency Chronic bilateral low back pain without sciatica- Primary Pneumonia due to infectious organism, unspecified laterality, unspecified part of lung- Primary Screening mammogram for breast cancer Chronic respiratory failure with hypoxia (CMS/HCC) Pulmonary emphysema, unspecified emphysema type (CMS/HCC) Essential hypertension (CMS/HCC) Unspecified essential hypertension Morbid obesity with BMI of 40.0-44.9, adult ([facility]) Hospital discharge follow-up- Primary Other follow-up examination [...] Moderate mixed hyperlipidemia not requiring statin therapy ([facility]) Morbid obesity with BMI of 40.0-44.9, adult ([facility]) Opioid use Chronic, continuous use of opioids Chronic back pain greater than 3 months duration Urge incontinence- Primary Morbid obesity with BMI of 40.0-44.9, adult ([facility]) 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 Stage 3a chronic kidney disease (HCC) ([facility]) Chronic respiratory failure with hypoxia ([facility]/HCC) Chronic obstructive pulmonary disease with acute lower respiratory infection ([facility]/HCC)- Primary Primary HSV infection of mouth Pulmonary emphysema, unspecified emphysema type ([facility]/HCC)- Primary Moderate episode of recurrent major depressive disorder ([facility]) Acute pain of right knee- Primary History of total right knee replacement documented in this encounter [facility] HealthcareEvaluation note* Diagnosis Moderate persistent asthma [...] Morbid obesity with BMI of 40.0-44.9, adult ([facility]) Hospital discharge follow-up- Primary Other follow-up examination Chronic respiratory failure with hypoxia (CMS/HCC) Severe persistent asthma without complication (CMS/HCC) Severe persistent asthma with acute exacerbation (CMS/HCC)- Primary Severe persistent asthma with exacerbation ([facility]/HCC)- Primary Unspecified asthma, with exacerbation Hospital discharge follow-up- Primary Other follow-up examination Chronic respiratory failure with hypoxia (CMS/HCC)- Primary Hospital discharge follow-up Other follow-up examination Benign essential HTN (CMS/HCC) Chronic heart failure with preserved ejection fraction (CMS/HCC) Severe persistent asthma without complication (CMS/HCC) Moderate mixed hyperlipidemia not requiring statin therapy ([facility]/HCC) Morbid obesity with BMI of 40.0-44.9, adult ([facility]) Opioid use Chronic, continuous use of opioids Chronic back pain greater than 3 months duration Urge incontinence- Primary Morbid obesity with BMI of 40.0-44.9, adult ([facility]) 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 Stage 3a chronic kidney disease (HCC) ([facility]/HCC) Chronic respiratory failure with hypoxia (CMS/HCC) Chronic obstructive pulmonary disease with acute lower respiratory infection ([facility]/HCC)- Primary Primary HSV infection of mouth Pulmonary emphysema, unspecified emphysema type (CMS/HCC)- Primary Acute pain of right knee- Primary History of total right knee replacement Right hip pain Pain in joint, pelvic region and thigh Arthritis of right hip documented in this encounter [facility] HealthcareEvaluation note* Diagnosis Moderate persistent asthma [...] Morbid obesity with BMI of 40.0-44.9, adult ([facility]) Hospital discharge follow-up- Primary Other follow-up examination [...] Morbid obesity with BMI of 40.0-44.9, adult ([facility]) Opioid use Chronic, continuous use of opioids Chronic back pain greater than 3 months duration Urge incontinence- Primary Morbid obesity with BMI of 40.0-44.9, adult ([facility]) 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 Stage 3a chronic kidney disease (HCC) (CMS/HCC) Chronic respiratory failure with hypoxia (CMS/HCC) Chronic obstructive pulmonary disease with acute lower respiratory infection ([facility]/HCC)- Primary Primary HSV infection of mouth Pulmonary emphysema, unspecified emphysema type (CMS/HCC)- Primary Seborrheic keratosis- Primary History of SCC (squamous cell carcinoma) of skin Personal history of other malignant neoplasm of skin Lentigines documented in this encounter [facility] HealthcareEvaluation note* Diagnosis Moderate episode of [...] Morbid obesity with BMI of 40.0-44.9, adult ([facility]) Hospital discharge follow-up- Primary Other follow-up examination [...] Morbid obesity with BMI of 40.0-44.9, adult ([facility]/HCC) Opioid use Chronic, continuous use of opioids Chronic back pain greater than 3 months duration Urge incontinence- Primary Morbid obesity with BMI of 40.0-44.9, adult ([facility]/HCC) 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 Stage 3a chronic kidney disease (HCC) (CMS/HCC) Chronic respiratory failure with hypoxia (CMS/HCC) Chronic obstructive pulmonary disease with acute lower respiratory infection (CMS/HCC)- Primary Primary HSV infection of mouth Pulmonary emphysema, unspecified emphysema type (CMS/HCC)- Primary Flu-like symptoms- Primary Morbid (severe) obesity due to excess calories (CMS/HCC) Body mass index (BMI) 40.0-44.9, adult ([facility]/HCC) Pulmonary emphysema, unspecified emphysema type (CMS/HCC) Chronic respiratory failure with hypoxia (CMS/HCC) Essential hypertension (CMS/HCC) Unspecified essential hypertension documented in this encounter [facility] HealthcareEvaluation note* Diagnosis Moderate episode of [...] Morbid obesity with BMI of 40.0-44.9, adult ([facility]) Hospital discharge follow-up- Primary Other follow-up examination [...] Morbid obesity with BMI of 40.0-44.9, adult ([facility]/HCC) Opioid use Chronic, continuous use of opioids Chronic back pain greater than 3 months duration Urge incontinence- Primary Morbid obesity with BMI of 40.0-44.9, adult ([facility]) 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 Stage 3a chronic kidney disease (HCC) (CMS/HCC) Chronic respiratory failure with hypoxia (CMS/HCC) Chronic obstructive pulmonary disease with acute lower respiratory infection (CMS/HCC)- Primary Primary HSV infection of mouth Pulmonary emphysema, unspecified emphysema type (CMS/HCC)- Primary Flu-like symptoms- Primary Morbid (severe) obesity due to excess calories ([facility]) Body mass index (BMI) 40.0-44.9, adult ([facility]) Pulmonary emphysema, unspecified emphysema type (CMS/HCC) Chronic respiratory failure with hypoxia (CMS/HCC) Essential hypertension ([facility]/HCC) Unspecified essential hypertension Pneumonia due to infectious organism, unspecified laterality, unspecified part of lung- Primary documented in this encounter [facility] HealthcareEvaluation note* Diagnosis Moderate episode of recurrent major depressive disorder (CMS/HCC)- Primary Moderate persistent asthma with exacerbation ([facility]) Unspecified asthma, with exacerbation Medicare annual wellness visit, subsequent Severe persistent asthma with acute exacerbation ([facility])- Primary Hospital discharge follow-up Other follow-up examination Severe persistent asthma without complication (CMS/HCC)- Primary Essential hypertension (CMS/HCC) Unspecified essential hypertension JEANNE (acute kidney injury) ([facility]) Leukocytosis, unspecified type Chronic respiratory failure with hypoxia (CMS/HCC) Chronic bilateral low back pain without sciatica- Primary Vitamin D deficiency Chronic bilateral low back pain without sciatica- Primary Pneumonia due to infectious organism, unspecified laterality, unspecified part of lung- Primary Screening mammogram for breast cancer Chronic respiratory failure with hypoxia (CMS/HCC) Pulmonary emphysema, unspecified emphysema type (CMS/HCC) Essential hypertension ([facility]/HCC) Unspecified essential hypertension Morbid obesity with BMI of 40.0-44.9, adult ([facility]) Hospital discharge follow-up- Primary Other follow-up examination Chronic respiratory failure with hypoxia (CMS/HCC) Severe persistent asthma without complication (CMS/HCC) Chronic respiratory failure with hypoxia (CMS/HCC)- Primary Hospital discharge follow-up Other follow-up examination Benign essential HTN (CMS/HCC) Chronic heart failure with preserved ejection fraction (CMS/HCC) Severe persistent asthma without complication (CMS/HCC) Moderate mixed hyperlipidemia not requiring statin therapy ([facility]/HCC) Morbid obesity with BMI of 40.0-44.9, adult ([facility]) Opioid use Chronic, continuous use of opioids [...] depressive disorder (CMS/HCC) documented in this encounter [facility] HealthcareEvaluation note* Diagnosis Moderate episode of [...] Morbid obesity with BMI of 40.0-44.9, adult ([facility]) Hospital discharge follow-up- Primary Other follow-up examination [...] Moderate episode of recurrent major depressive disorder ([facility]/HCC)- Primary Moderate persistent asthma with exacerbation ([facility]/HCC) Unspecified asthma, with exacerbation Medicare annual wellness visit, subsequent Severe persistent asthma with acute exacerbation ([facility]/HCC)- Primary Hospital discharge follow-up Other follow-up examination Severe persistent asthma without complication (CMS/HCC)- Primary Essential hypertension (CMS/HCC) Unspecified essential hypertension JEANNE (acute kidney injury) ([facility]) Leukocytosis, unspecified type Chronic respiratory failure with hypoxia ([facility]/HCC) Chronic bilateral low back pain without sciatica- Primary Vitamin D deficiency Chronic bilateral low back pain without sciatica- Primary Pneumonia due to infectious organism, unspecified laterality, unspecified part of lung- Primary Screening mammogram for breast cancer Chronic respiratory failure with hypoxia ([facility]) Pulmonary emphysema, unspecified emphysema type ([facility]/HCC) Essential hypertension ([facility]/HCC) Unspecified essential hypertension Morbid obesity with BMI of 40.0-44.9, adult ([facility]) Hospital discharge follow-up- Primary Other follow-up examination Chronic respiratory failure with hypoxia (CMS/HCC) Severe persistent asthma without complication ([facility]/HCC) Chronic respiratory failure with hypoxia ([facility]/HCC)- Primary Hospital discharge follow-up Other follow-up examination Benign essential HTN ([facility]/HCC) Chronic heart failure with preserved ejection fraction ([facility]/HCC) Severe persistent asthma without complication ([facility]/HCC) Moderate mixed hyperlipidemia not requiring statin therapy ([facility]) Morbid obesity with BMI of 40.0-44.9, adult ([facility]) Opioid use Chronic, continuous use of opioids Chronic back pain greater than 3 months duration Urge incontinence- Primary Morbid obesity with BMI of 40.0-44.9, adult ([facility]) 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 Stage 3a chronic kidney disease (HCC) ([facility]) Chronic respiratory failure with hypoxia ([facility]/HCC) Chronic obstructive pulmonary disease with acute lower respiratory infection ([facility]/HCC)- Primary Primary HSV infection of mouth Pulmonary emphysema, unspecified emphysema type ([facility]/HCC)- Primary Flu-like symptoms- Primary Morbid (severe) obesity due to excess calories ([facility]) Body mass index (BMI) 40.0-44.9, adult ([facility]/HCC) Pulmonary emphysema, unspecified emphysema type (CMS/HCC) Chronic [...] esophagitis Esophageal reflux documented in this encounter [facility] HealthcareEvaluation note* Diagnosis Moderate episode of recurrent major depressive disorder (CMS/HCC)- Primary Moderate persistent asthma with exacerbation ([facility]/HCC) Unspecified asthma, with exacerbation Medicare annual wellness visit, subsequent Severe persistent asthma with acute exacerbation ([facility]/HCC)- Primary Hospital discharge follow-up Other follow-up examination Severe persistent asthma without complication (CMS/HCC)- Primary Essential hypertension (CMS/HCC) Unspecified essential hypertension JEANNE (acute kidney injury) ([facility]) Leukocytosis, unspecified type Chronic respiratory failure with [...] Morbid obesity with BMI of 40.0-44.9, adult ([facility]) Hospital discharge follow-up- Primary Other follow-up examination Chronic respiratory failure with hypoxia (CMS/HCC) Severe persistent asthma without complication (CMS/HCC) Chronic respiratory failure with hypoxia (CMS/HCC)- Primary Hospital discharge follow-up Other follow-up examination Benign essential HTN ([facility]/HCC) Chronic heart failure with preserved ejection fraction ([facility]/HCC) Severe persistent asthma without complication ([facility]/HCC) Moderate mixed hyperlipidemia not requiring statin therapy ([facility]) Morbid obesity with BMI of 40.0-44.9, adult ([facility]) Opioid use Chronic, continuous use of opioids Chronic back pain greater than 3 months duration Urge incontinence- Primary Morbid obesity with BMI of 40.0-44.9, adult ([facility]) 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 Stage 3a chronic kidney disease (HCC) ([facility] Chronic respiratory failure with hypoxia ([facility]) Chronic obstructive pulmonary disease with acute lower respiratory infection ([facility])- Primary Primary HSV infection of mouth Pulmonary emphysema, unspecified emphysema type ([facility])- Primary Flu-like symptoms- Primary Morbid (severe) obesity due to excess calories ([facility]) Body mass index (BMI) 40.0-44.9, adult ([facility]) Pulmonary emphysema, unspecified emphysema type ([facility]) Chronic respiratory failure with hypoxia ([facility]) Essential hypertension ([facility]) Unspecified essential hypertension Pneumonia due to infectious organism, unspecified laterality, unspecified part of lung- Primary Pneumonia due to infectious organism, unspecified laterality, unspecified part of lung- Primary Chronic respiratory failure with hypoxia ([facility]/HCC) Severe persistent asthma, uncomplicated ([facility]) Chronic heart failure with preserved ejection fraction ([facility] Essential hypertension ([facility]) Unspecified essential hypertension Other secondary pulmonary hypertension Chronic kidney disease, stage 3a (HCC) ([facility]) Morbid (severe) obesity due to excess calories ([facility]) Screening mammogram for breast cancer Moderate episode of recurrent major depressive disorder ([facility]) Edema of both lower extremities- Primary Spinal stenosis, lumbar region without neurogenic claudication Chronic heart failure with preserved ejection fraction ([facility]/HCC) Chronic respiratory failure with hypoxia ([facility]/HCC) Severe persistent asthma, uncomplicated ([facility]/HCC) Gastroesophageal reflux disease, unspecified whether esophagitis present Morbid (severe) obesity due to excess calories ([facility]/HCC) RLS (restless legs syndrome) Restless legs syndrome (RLS) Candidiasis Moderate episode of recurrent major depressive disorder ([facility]/HCC)- Primary Pulmonary emphysema, unspecified emphysema type ([facility]/HCC) Chronic respiratory failure with hypoxia ([facility]/HCC) Morbid (severe) obesity due to excess calories ([facility]) Restless leg syndrome Restless legs syndrome (RLS) documented in this encounter [facility] HealthcareEvaluation note* Diagnosis Moderate episode of [...] Morbid obesity with BMI of 40.0-44.9, adult ([facility]) Hospital discharge follow-up- Primary Other follow-up examination Chronic respiratory failure with hypoxia (HCC) Severe persistent asthma without complication (HCC) Chronic respiratory failure with hypoxia (HCC)- Primary Hospital discharge follow-up Other follow-up examination Benign essential HTN Chronic heart failure with preserved ejection fraction (HCC) Severe persistent asthma without complication (HCC) Moderate mixed hyperlipidemia not requiring statin therapy Morbid obesity with BMI of 40.0-44.9, adult ([facility]) Opioid use Chronic, continuous use of opioids Chronic back pain greater than 3 months duration Urge incontinence- Primary Morbid obesity with BMI of 40.0-44.9, adult ([facility]) 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 Stage 3a chronic kidney disease ([facility]) Chronic respiratory failure with hypoxia (HCC) Chronic obstructive pulmonary disease with acute lower respiratory infection (HCC)- Primary Primary HSV infection of mouth Pulmonary emphysema, unspecified emphysema type (HCC)- Primary Flu-like symptoms- Primary Morbid (severe) obesity due to excess calories ([facility]) Body mass index (BMI) 40.0-44.9, adult ([facility] [facility] [place] Pulmonary emphysema, unspecified emphysema type (HCC) Chronic [...] hypertension (HCC) Chronic kidney disease, stage 3a ([facility]) Morbid (severe) obesity due to excess calories ([facility]) Screening mammogram for breast cancer Moderate episode of recurrent major depressive disorder (HCC) Edema of both lower extremities- Primary Spinal stenosis, lumbar region without neurogenic claudication Chronic heart failure with preserved ejection fraction (HCC) Chronic respiratory failure with hypoxia (HCC) Severe persistent asthma, uncomplicated (HCC) Gastroesophageal reflux disease, unspecified whether esophagitis present Morbid (severe) obesity due to excess calories ([facility]) RLS (restless legs syndrome) Restless legs syndrome (RLS) Candidiasis Moderate episode of recurrent major depressive disorder (HCC)- Primary Pulmonary emphysema, unspecified emphysema type (HCC) Chronic respiratory failure with hypoxia (HCC) Morbid (severe) obesity due to excess calories ([facility]) Restless leg syndrome Restless legs syndrome (RLS) Moderate episode of recurrent major depressive disorder (HCC)- Primary documented in this encounter [facility] HealthcareEvaluation note* Diagnosis Moderate episode of [...] Morbid obesity with BMI of 40.0-44.9, adult ([facility]) Hospital discharge follow-up- Primary Other follow-up examination Chronic respiratory failure with hypoxia (HCC) Severe persistent asthma without complication (HCC) Chronic respiratory failure with hypoxia (HCC)- Primary Hospital discharge follow-up Other follow-up examination Benign essential HTN Chronic heart failure with preserved ejection fraction (HCC) Severe persistent asthma without complication (HCC) Moderate mixed hyperlipidemia not requiring statin therapy Morbid obesity with BMI of 40.0-44.9, adult ([facility] [place]) Opioid use Chronic, continuous use of opioids Chronic back pain greater than 3 months duration Urge incontinence- Primary Morbid obesity with BMI of 40.0-44.9, adult ([facility] [place]) 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 Stage 3a chronic kidney disease ([facility] [place]) Chronic respiratory failure with hypoxia ([facility]) Chronic obstructive pulmonary disease with acute lower respiratory infection ([facility])- Primary Primary HSV infection of mouth Pulmonary emphysema, unspecified emphysema type ([facility])- Primary Flu-like symptoms- Primary Morbid (severe) obesity due to excess calories ([facility] [place]) Body mass index (BMI) 40.0-44.9, adult ([facility] [place]) Pulmonary emphysema, unspecified emphysema type ([facility]) Chronic respiratory failure with hypoxia ([facility]) Essential hypertension Unspecified essential hypertension Pneumonia due to infectious organism, unspecified laterality, unspecified part of lung- Primary Pneumonia due to infectious organism, unspecified laterality, unspecified part of lung- Primary Chronic respiratory failure with hypoxia ([facility]) Severe persistent asthma, uncomplicated ([facility]) Chronic heart failure with preserved ejection fraction (HCC) Essential hypertension Unspecified essential hypertension Other secondary pulmonary hypertension ([facility]) Chronic kidney disease, stage 3a ([facility] [place]) Morbid (severe) obesity due to excess calories ([facility] [place]) Screening mammogram for breast cancer Moderate episode of recurrent major depressive disorder ([facility]) Edema of both lower extremities- Primary Spinal stenosis, lumbar region without neurogenic claudication Chronic heart failure with preserved ejection fraction (HCC) Chronic respiratory failure with hypoxia (HCC) Severe persistent asthma, uncomplicated (HCC) Gastroesophageal reflux disease, unspecified whether esophagitis present Morbid (severe) obesity due to excess calories ([facility] [place]) RLS (restless legs syndrome) Restless legs syndrome (RLS) Candidiasis Moderate episode of recurrent major depressive disorder (HCC)- Primary Pulmonary emphysema, unspecified emphysema type (HCC) Chronic respiratory failure with hypoxia (HCC) Morbid (severe) obesity due to excess calories ([facility] [place]) Restless leg syndrome Restless legs syndrome (RLS) [...] Morbid obesity with BMI of 40.0-44.9, adult ([facility] [place]) Hospital discharge follow-up- Primary Other follow-up examination Chronic respiratory failure with hypoxia (HCC) Severe persistent asthma without complication (HCC) Chronic respiratory failure with hypoxia (HCC)- Primary Hospital discharge follow-up Other follow-up examination Benign essential HTN Chronic heart failure with preserved ejection fraction (HCC) Severe persistent asthma without complication (HCC) Moderate mixed hyperlipidemia not requiring statin therapy Morbid obesity with BMI of 40.0-44.9, adult ([facility] [place]) Opioid use Chronic, continuous use of opioids Chronic back pain greater than 3 months duration Urge incontinence- Primary Morbid obesity with BMI of 40.0-44.9, adult ([facility] [place]) 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 Stage 3a chronic kidney disease ([facility] [place]) Chronic respiratory failure with hypoxia ([facility]) Chronic obstructive pulmonary disease with acute lower respiratory infection (HCC)- Primary Primary HSV infection of mouth Pulmonary emphysema, unspecified emphysema type (HCC)- Primary Flu-like symptoms- Primary Morbid (severe) obesity due to excess calories ([facility] [place]) Body mass index (BMI) 40.0-44.9, adult ([facility] [place]) Pulmonary emphysema, unspecified emphysema type (HCC) Chronic [...] hypertension (HCC) Chronic kidney disease, stage 3a ([facility] [place]) Morbid (severe) obesity due to excess calories ([facility] [place]) Screening mammogram for breast cancer Moderate episode of recurrent major depressive disorder ([facility]) Edema of both lower extremities- Primary Spinal stenosis, lumbar region without neurogenic claudication Chronic heart failure with preserved ejection fraction (HCC) Chronic respiratory failure with hypoxia (HCC) Severe persistent asthma, uncomplicated (HCC) Gastroesophageal reflux disease, unspecified whether esophagitis present Morbid (severe) obesity due to excess calories ([facility]) RLS (restless legs syndrome) Restless legs syndrome (RLS) Candidiasis Moderate episode of recurrent major depressive disorder (HCC)- Primary Pulmonary emphysema, unspecified emphysema type (HCC) Chronic respiratory failure with hypoxia (HCC) Morbid (severe) obesity due to excess calories ([facility]) Restless leg syndrome Restless legs syndrome (RLS) Restless leg syndrome Restless legs syndrome (RLS) documented in this encounter [facility] HealthcareEvaluation note* Diagnosis Moderate episode of [...] Morbid obesity with BMI of 40.0-44.9, adult ([facility]) Hospital discharge follow-up- Primary Other follow-up examination Chronic respiratory failure with hypoxia (HCC) Severe persistent asthma without complication (HCC) Chronic respiratory failure with hypoxia (HCC)- Primary Hospital discharge follow-up Other follow-up examination Benign essential HTN Chronic heart failure with preserved ejection fraction (HCC) Severe persistent asthma without complication (HCC) Moderate mixed hyperlipidemia not requiring statin therapy Morbid obesity with BMI of 40.0-44.9, adult ([facility] [place]) Opioid use Chronic, continuous use of opioids Chronic back pain greater than 3 months duration Urge incontinence- Primary Morbid obesity with BMI of 40.0-44.9, adult ([facility] [place]) 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 Stage 3a chronic kidney disease ([facility]) Chronic respiratory failure with hypoxia (HCC) Chronic obstructive pulmonary disease with acute lower respiratory infection (HCC)- Primary Primary HSV infection of mouth Pulmonary emphysema, unspecified emphysema type (HCC)- Primary Flu-like symptoms- Primary Morbid (severe) obesity due to excess calories ([facility]) Body mass index (BMI) 40.0-44.9, adult ([facility]) Pulmonary emphysema, unspecified emphysema type (HCC) Chronic [...] hypertension (HCC) Chronic kidney disease, stage 3a ([facility]) Morbid (severe) obesity due to excess calories ([facility]) Screening mammogram for breast cancer Moderate episode of recurrent major depressive disorder (HCC) Edema of both lower extremities- Primary Spinal stenosis, lumbar region without neurogenic claudication Chronic heart failure with preserved ejection fraction (HCC) Chronic respiratory failure with hypoxia (HCC) Severe persistent asthma, uncomplicated (HCC) Gastroesophageal reflux disease, unspecified whether esophagitis present Morbid (severe) obesity due to excess calories ([facility]) RLS (restless legs syndrome) Restless legs syndrome (RLS) Candidiasis Moderate episode of recurrent major depressive disorder (HCC)- Primary Pulmonary emphysema, unspecified emphysema type (HCC) Chronic respiratory failure with hypoxia (HCC) Morbid (severe) obesity due to excess calories ([facility]) Restless leg syndrome Restless legs syndrome (RLS) Chronic heart failure with preserved ejection fraction (HCC)- Primary Edema of both lower extremities documented in this encounter [facility] HealthcareEvaluation note* Diagnosis Moderate episode of [...] Morbid obesity with BMI of 40.0-44.9, adult ([facility] [place]) Hospital discharge follow-up- Primary Other follow-up examination Chronic respiratory failure with hypoxia (HCC) Severe persistent asthma without complication (HCC) Chronic respiratory failure with hypoxia (HCC)- Primary Hospital discharge follow-up Other follow-up examination Benign essential HTN Chronic heart failure with preserved ejection fraction (HCC) Severe persistent asthma without complication (HCC) Moderate mixed hyperlipidemia not requiring statin therapy Morbid obesity with BMI of 40.0-44.9, adult ([facility] [place]) Opioid use Chronic, continuous use of opioids Chronic back pain greater than 3 months duration Urge incontinence- Primary Morbid obesity with BMI of 40.0-44.9, adult ([facility] [place]) 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 Stage 3a chronic kidney disease ([facility] [place]) Chronic respiratory failure with hypoxia ([facility]) Chronic obstructive pulmonary disease with acute lower respiratory infection ([facility])- Primary Primary HSV infection of mouth Pulmonary emphysema, unspecified emphysema type ([facility])- Primary Flu-like symptoms- Primary Morbid (severe) obesity due to excess calories ([facility] [place]) Body mass index (BMI) 40.0-44.9, adult ([facility] [place]) Pulmonary emphysema, unspecified emphysema type ([facility]) Chronic respiratory failure with hypoxia ([facility]) Essential hypertension Unspecified essential hypertension Pneumonia due to infectious organism, unspecified laterality, unspecified part of lung- Primary Pneumonia due to infectious organism, unspecified laterality, unspecified part of lung- Primary Chronic respiratory failure with hypoxia ([facility]) Severe persistent asthma, uncomplicated (HCC) Chronic heart failure with preserved ejection fraction (HCC) Essential hypertension Unspecified essential hypertension Other secondary pulmonary hypertension (HCC) Chronic kidney disease, stage 3a ([facility] [place]) Morbid (severe) obesity due to excess calories ([facility] [place]) Screening mammogram for breast cancer Moderate episode of recurrent major depressive disorder ([facility]) Edema of both lower extremities- Primary Spinal stenosis, lumbar region without neurogenic claudication Chronic heart failure with preserved ejection fraction (HCC) Chronic respiratory failure with hypoxia (HCC) Severe persistent asthma, uncomplicated (HCC) Gastroesophageal reflux disease, unspecified whether esophagitis present Morbid (severe) obesity due to excess calories ([facility] [place]) RLS (restless legs syndrome) Restless legs syndrome (RLS) Candidiasis Moderate episode of recurrent major depressive disorder (HCC)- Primary Pulmonary emphysema, unspecified emphysema type (HCC) Chronic respiratory failure with hypoxia (HCC) Morbid (severe) obesity due to excess calories ([facility]) Restless leg syndrome Restless legs syndrome (RLS) Moderate episode of recurrent major depressive disorder (HCC)- Primary Morbid (severe) obesity due to excess calories ([facility]) Candidiasis of breast Skin pustule Unspecified local infection of skin and subcutaneous tissue RLS (restless legs syndrome) Restless legs syndrome (RLS) documented in this encounter [facility] HealthcareEvaluation note* Diagnosis Moderate episode of [...] Morbid obesity with BMI of 40.0-44.9, adult ([facility] [place]) Hospital discharge follow-up- Primary Other follow-up examination Chronic respiratory failure with hypoxia (HCC) Severe persistent asthma without complication (HCC) Chronic respiratory failure with hypoxia (HCC)- Primary Hospital discharge follow-up Other follow-up examination Benign essential HTN Chronic heart failure with preserved ejection fraction (HCC) Severe persistent asthma without complication (HCC) Moderate mixed hyperlipidemia not requiring statin therapy Morbid obesity with BMI of 40.0-44.9, adult ([facility] [place]) Opioid use Chronic, continuous use of opioids Chronic back pain greater than 3 months duration Urge incontinence- Primary Morbid obesity with BMI of 40.0-44.9, adult ([facility] [place]) 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 Stage 3a chronic kidney disease ([facility]) Chronic respiratory failure with hypoxia (HCC) Chronic obstructive pulmonary disease with acute lower respiratory infection (HCC)- Primary Primary HSV infection of mouth Pulmonary emphysema, unspecified emphysema type (HCC)- Primary Flu-like symptoms- Primary Morbid (severe) obesity due to excess calories ([facility]) Body mass index (BMI) 40.0-44.9, adult ([facility]) Pulmonary emphysema, unspecified emphysema type (HCC) Chronic [...] hypertension (HCC) Chronic kidney disease, stage 3a ([facility]) Morbid (severe) obesity due to excess calories ([facility]) Screening mammogram for breast cancer Moderate episode of recurrent major depressive disorder ([facility]) Edema of both lower extremities- Primary Spinal stenosis, lumbar region without neurogenic claudication Chronic heart failure with preserved ejection fraction (HCC) Chronic respiratory failure with hypoxia (HCC) Severe persistent asthma, uncomplicated ([facility]) Gastroesophageal reflux disease, unspecified whether esophagitis present Morbid (severe) obesity due to excess calories ([facility]) RLS (restless legs syndrome) Restless legs syndrome (RLS) Candidiasis Moderate episode of recurrent major depressive disorder (HCC)- Primary Pulmonary emphysema, unspecified emphysema type (HCC) Chronic respiratory failure with hypoxia (HCC) Morbid (severe) obesity due to excess calories ([facility]) Restless leg syndrome Restless legs syndrome (RLS) Moderate episode of recurrent major depressive disorder (HCC)- Primary Morbid (severe) obesity due to excess calories ([facility]) Candidiasis of breast Skin pustule Unspecified local infection of skin and subcutaneous tissue RLS (restless legs syndrome) Restless legs syndrome (RLS) Skin pustule Unspecified local infection of skin and subcutaneous tissue documented in this encounter [facility] HealthcareEvaluation note* Diagnosis Moderate episode of [...] Morbid obesity with BMI of 40.0-44.9, adult ([facility] [place]) Hospital discharge follow-up- Primary Other follow-up examination Chronic respiratory failure with hypoxia (HCC) Severe persistent asthma without complication (HCC) Chronic respiratory failure with hypoxia (HCC)- Primary Hospital discharge follow-up Other follow-up examination Benign essential HTN Chronic heart failure with preserved ejection fraction (HCC) Severe persistent asthma without complication (HCC) Moderate mixed hyperlipidemia not requiring statin therapy Morbid obesity with BMI of 40.0-44.9, adult ([facility] [place]) Opioid use Chronic, continuous use of opioids Chronic back pain greater than 3 months duration Urge incontinence- Primary Morbid obesity with BMI of 40.0-44.9, adult ([facility] [place]) 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 Stage 3a chronic kidney disease ([facility] [place]) Chronic respiratory failure with hypoxia ([facility]) Chronic obstructive pulmonary disease with acute lower respiratory infection ([facility])- Primary Primary HSV infection of mouth Pulmonary emphysema, unspecified emphysema type (HCC)- Primary Flu-like symptoms- Primary Morbid (severe) obesity due to excess calories ([facility] [place]) Body mass index (BMI) 40.0-44.9, adult ([facility] [place]) Pulmonary emphysema, unspecified emphysema type (HCC) Chronic [...] hypertension (HCC) Chronic kidney disease, stage 3a ([facility] [place]) Morbid (severe) obesity due to excess calories ([facility] [place]) Screening mammogram for breast cancer Moderate episode of recurrent major depressive disorder ([facility]) Edema of both lower extremities- Primary Spinal [...] depressive disorder (HCC) documented in this encounter [facility] HealthcareHistory general Narrative - Reported* Type [...] IN 08/2019 Hospitalization History HIP REVISION 03/2020 [facility] Other History general Narrative - Reported* Type [...] Hospitalization History COVID X 2 WEEKS 04/2023 [facility] Other Hospital course Narrative No data available for this section [facility] Discharge instructions Additional Instructions DISCHARGE INSTRUCTIONS [...] if you have any problems. -Office number [phone] Work Phone: Hospital Discharge instructions No data available for this section [facility] Progress note No data available for this section [facility] Advance Directives No Advanced Directives Records Found [...] or prosecute any alcohol or drug abuse patient.[facility] the event this information is protected by the Federal Confidentiality of Alcohol and Drug Abuse Patient Records regulations: The Federal rules restrict any use of the information to criminally investigate or prosecute any alcohol or drug abuse patient.[facility] the event this information is protected by the Federal Confidentiality of Alcohol and Drug Abuse Patient Records regulations: The Federal rules restrict any use of the information to criminally investigate or prosecute any alcohol or drug abuse patient.[facility] the event this information is protected by the Federal Confidentiality of Alcohol and Drug Abuse Patient Records regulations: The Federal rules restrict any use of the information to criminally investigate or prosecute any alcohol or drug abuse patient.[facility] INFORMATION SOURCE (unrecogn ized section and content) DATE CREATED AUTHOR 03/03/2022 [facility] DATE CREATED AUTHOR AUTHOR'S ORGANIZ ATION 04/17/2023 [facility] DATE CREATED AUTHOR AUTHOR'S ORGANIZ ATION 10/20/2024 [facility] DATE CREATED AUTHOR AUTHOR'S ORGANIZ ATION 11/18/2024 [facility] DATE CREATED AUTHOR AUTHOR'S ORGANIZ ATION 01/25/2025 [facility] DATE CREATED AUTHOR AUTHOR'S ORGANIZ ATION [facility]/2025 [facility] DATE CREATED AUTHOR AUTHOR'S ORGANIZ ATION 05/22/2025 [facility] DATE CREATED AUTHOR AUTHOR'S ORGANIZ ATION 06/20/2025 [facility] DATE CREATED AUTHOR AUTHOR'S ORGANIZ ATION 07/05/2025 [facility] REASON FOR VISIT (unrecogniz ed section [...] of uncertain behavior of chest wall Procedures ID OFFICE/OUTPATIENT NEW HIGH MDM Aida Reese, RIKK[address] [place] [address] Phone: tel: fax: Elena Martinez, MANAGER [employer] [address] [place] [address] Phone: tel: fax: Referral ID Status Reason Start Date Expiration Date V isits Requested Visits Authorized [id number] Closed Specialty Services Required 10/07/2024 04/05/2025 1 [...] Steph Marinellijohn Attending Provider Active Start: Paolo dreas 2003 Team Status: Active Member Role Status [...] March 14, 2024 End: March 14, 2024 Head Grinder Relationship Specialty Start Date End Date Tapan Zazueta MD [address] [place] [phone] PCP - General Family Medicine 06/10/24 Ariella Mathis DO [address] [place] [address] Referring Physician Neurology 01/02/24 Aida Reese NP [address] [place] [phone] Nurse Practitioner Family Medicine 06/10/24 Head Grinder Relationship Specialty Start Date End Date Tapan Zazueta MD [address] [place] [phone] PCP - General Family Medicine 06/10/24 Ariella Mathis DO [address] [place], [place] [phone] Referring Physician Neurology 01/02/24 Aida Reese NP [address] [place] [phone] Nurse Practitioner Family Medicine 06/10/24 Head Grinder Relationship Specialty Start Date End Date Tapan Zazueta MD [address] [place] [phone] PCP - General Family Medicine 06/10/24 Ariella Mathis DO [address], [place] [phone] Referring Physician Neurology 01/02/24 Aida Reese NP [address] [place] [phone] Nurse Practitioner Family Medicine 06/10/24 Head Grinder Relationship Specialty Start Date End Date Tapan Zazueta MD [address] [place] [phone] PCP - General Family Medicine 06/10/24 Ariella Mathis DO [address] [place], [place] [id number] Referring Physician Neurology 01/02/24 Aida Reese NP [address] [place] [phone] Nurse Practitioner Family Medicine 06/10/24 Head Grinder Relationship Specialty Start Date End Date Tapan Zazueta MD [address] [place] [phone] PCP - General Family Medicine 06/10/24 Ariella Mathis DO [address], [place] [phone] Referring Physician Neurology 01/02/24 Aida Reese NP [address] [place] [address] Nurse Practitioner Family Medicine 06/10/24 Team Status: [...] September 05, 2024 End: September 05, 2024 Head Grinder Relationship Specialty Start Date End Date Tapan Zazueta MD [address] [place] [address] PCP - General Family Medicine 06/10/24 Ariella Mathis DO [address] [place] [address] Referring Physician Neurology 01/02/24 Aida Reese NP [address] [place] [address] Nurse Practitioner Family Medicine 06/10/24 Head Grinder Relationship Specialty Start Date End Date Tapan Zazueta MD [address] [place] [address] PCP - General Family Medicine 06/10/24 Ariella Mathis DO [address], [place] [address] Referring Physician Neurology 01/02/24 Aida Reese NP [address] [place] [address] Nurse Practitioner Family Medicine 06/10/24 Head Grinder Relationship Specialty Start Date End Date Tapan Zazueta MD [address] [place] [address] PCP - General Family Medicine 06/10/24 Ariella Mathis DO [address] [place], [place] [address] Referring Physician Neurology 01/02/24 Aida Reese NP [address] [place] [address] Nurse Practitioner Family Medicine 06/10/24 Head Grinder Relationship Specialty Start Date End Date Tapan Zazueta MD [address] [place] [address] PCP - General Family Medicine 06/10/24 Ariella Mathis DO [address], [place] [address] Referring Physician Neurology 01/02/24 Aida Reese NP [address] [place] [address] Nurse Practitioner Family Medicine 06/10/24 Head Grinder Relationship Specialty Start Date End Date Tapan Zazueta MD [address] [place] [address] PCP - General Family Medicine 06/10/24 Ariella Mathis DO [address] [place], [place] [address] Referring Physician Neurology 01/02/24 Aida Reese NP [address] [place] [address] Nurse Practitioner Family Medicine 06/10/24 Head Grinder Relationship Specialty Start Date End Date Tapan Zazueta MD [address] [place] [address] PCP - General Family Medicine 06/10/24 Ariella Mathis DO [address] [place], [place] [address] Referring Physician Neurology 01/02/24 Aida Reese NP [address] [place] [address] Nurse Practitioner Family Medicine 06/10/24 Head Grinder Relationship Specialty Start Date End Date Tapan Zazueta MD [address] [place] [address] PCP - General Family Medicine 06/10/24 Ariella Mathis DO [address] [place] [address] Referring Physician Neurology 01/02/24 Aida Reese NP [address] [place] [address] Nurse Practitioner Family Medicine 06/10/24 Head Grinder Relationship Specialty Start Date End Date Tapan Zazueta MD [address] [place] [address] PCP - General Family Medicine 06/10/24 Ariella Mathis DO [address] [place] [address] Referring Physician Neurology 01/02/24 Aida Reese NP [address] [place] [address] Nurse Practitioner Family Medicine 06/10/24 Head Grinder Relationship Specialty Start Date End Date Tapan Zazueta MD [address] [place] [address] PCP - General Family Medicine 06/10/24 Ariella Mathis DO [address] [place] [address] Referring Physician Neurology 01/02/24 Aida Reese NP [address] [place] [address] Nurse Practitioner Family Medicine 06/10/24 Head Grinder Relationship Specialty Start Date End Date Tapan Zazueta MD [address] [place] [address] PCP - General Family Medicine 06/10/24 Ariella Mathis DO [address], [place] [address] Referring Physician Neurology 01/02/24 Aida Reese NP [address] [place] [address] Nurse Practitioner Family Medicine 06/10/24 Head Grinder Relationship Specialty Start Date End Date Tapan Zazueta MD [address] [place] [address] PCP - General Family Medicine 06/10/24 Ariella Mathis DO [address], [place] 33[address] Referring Physician Neurology 01/02/24 Aida Reese NP [address] [place] [address] Nurse Practitioner Family Medicine 06/10/24 Head Grinder Relationship Specialty Start Date End Date Tapan Zazueta MD [address] [place] [address] PCP - General Family Medicine 06/10/24 Ariella Mathis DO [address], [place] 80[address] Referring Physician Neurology 01/02/24 Aida Reese NP [address] [place] [address] Nurse Practitioner Family Medicine 06/10/24 Head Grinder Relationship Specialty Start Date End Date Tapan Zazueta MD [address] [place] [address] PCP - General Family Medicine 06/10/24 Ariella Mathis DO [address], [place] 8466[address] Referring Physician Neurology 01/02/24 Aida Reese NP [address] [place] [address] Nurse Practitioner Family Medicine 06/10/24 Head Grinder Relationship Specialty Start Date End Date Tapan Zazueta MD [address] [place] [address] PCP - General Family Medicine 06/10/24 Ariella Mathis DO [address] [place], [place] [address] Referring Physician Neurology 01/02/24 Aida Reese NP [address] [place] [address] Nurse Practitioner Family Medicine 06/10/24 Head Grinder Relationship Specialty Start Date End Date Tapan Zazueta MD [address] [place] [address] PCP - General Family Medicine 06/10/24 Ariella Mathis DO [address] [place] [address] Referring Physician Neurology 01/02/24 Aida Reese NP [address] [place] [address] Nurse Practitioner Family Medicine 06/10/24 Team Status: Inactive Member Role Status Dates Allan Lacey MD Attending Provider Active Start: September 12, 2024 End: September 12, 2024 Aida Reese NP-C Primary Care Provider Ac tive Start: September 12, 2024 End: September 12, 2024 Head Grinder Relationship Specialty Start Date End Date Tapan Zazueta MD [address] [place] [address] PCP - General Family Medicine 06/10/24 Ariella Mathis DO [address] [place] [address] Referring Physician Neurology 01/02/24 Aida Reese NP [address] [place] [address] Nurse Practitioner Family Medicine 06/10/24 Head Grinder Relationship Specialty Start Date End Date Tapan Zazueta MD [address] [place] [address] PCP - General Family Medicine 06/10/24 Ariella Mathis DO [address] [place] [address] Referring Physician Neurology 01/02/24 Aida Reese NP [address] [place] [address] Nurse Practitioner Family Medicine 06/10/24 Head Grinder Relationship Specialty Start Date End Date Tapan Zazueta MD [address] [place] [address] PCP - General Family Medicine 06/10/24 Ariella Mathis DO [address] [place], [place] [address] Referring Physician Neurology 01/02/24 Aida Reese NP [address] [place] [address] Nurse Practitioner Family Medicine 06/10/24 Head Grinder Relationship Specialty Start Date End Date Tapan Zazueta MD [address] [place] [address] PCP - General Family Medicine 06/10/24 Ariella Mathis DO [address] [place] [address] Referring Physician Neurology 01/02/24 Aida Reese NP [address] [place] [address] Nurse Practitioner Family Medicine 06/10/24 Head Grinder Relationship Specialty Start Date End Date Tapan Zazueta MD [address] [place] [address] PCP - General Family Medicine 06/10/24 Ariella Mathis DO [address] [place] [address] Referring Physician Neurology 01/02/24 Aida Reese NP [address] [place] [address] Nurse Practitioner Family Medicine 06/10/24 Head Grinder Relationship Specialty Start Date End Date Tapan Zazueta MD [address] [place] [address] PCP - General Family Medicine 06/10/24 Ariella Mathis DO [address] [place] [address] Referring Physician Neurology 01/02/24 Aida Reese, RIKKI [address] [place] [address] Nurse Practitioner Family Medicine 06/10/24 Head Grinder Relationship Specialty Start Date End Date Tapan Zazueta MD [address] [place] [address] PCP - General Family Medicine 06/10/24 Ariella Mathis DO [address] [place] [address] Referring Physician Neurology 01/02/24 Aida Reese NP [address] [place] [address] Nurse Practitioner Family Medicine 06/10/24 Head Grinder Relationship Specialty Start Date End Date Tapan Zazueta MD [address] [place] [address] PCP - General Family Medicine 06/10/24 Ariella Mathis DO [address], [place] 9[address] Referring Physician Neurology 01/02/24 Aida Reese NP [address] [place] [address] Nurse Practitioner Family Medicine 06/10/24 Head Grinder Relationship Specialty Start Date End Date Tapan Zazueta MD [address] [place] [address] PCP - General Family Medicine 06/10/24 Ariella Mathis DO [address], [place] [address] Referring Physician Neurology 01/02/24 Aida Reese NP [address] [place] [address] Nurse Practitioner Family Medicine 06/10/24 Head Grinder Relationship Specialty Start Date End Date Tapan Zazueta MD [address] [place] [address] PCP - General Family Medicine 06/10/24 Ariella Mathis DO [address] [place] [address] Referring Physician Neurology 01/02/24 Aida Reese NP [address] [place] [address] Nurse Practitioner Family Medicine 06/10/24 Head Grinder Relationship Specialty Start Date End Date Tapan Zazueta MD [address] [place] [address] PCP - General Family Medicine 06/10/24 Ariella Mathis DO [address] [place] [address] Referring Physician Neurology 01/02/24 Aida Reese NP [address] [place] [address] Nurse Practitioner Family Medicine 06/10/24 Head Grinder Relationship Specialty Start Date End Date Tapan Zazueta MD [address] [place] [address] PCP - General Family Medicine 06/10/24 Ariella Mathis DO [address] [place], [place] [address] Referring Physician Neurology 01/02/24 Aida Reese NP [address] [place] [address] Nurse Practitioner Family Medicine 06/10/24 Head Grinder Relationship Specialty Start Date End Date Tapan Zazueta MD [address] [place] [address] PCP - General Family Medicine 06/10/24 Ariella Mathis DO [address] [place] [address] Referring Physician Neurology 01/02/24 Aida Reese NP [address] [place] [address] Nurse Practitioner Family Medicine 06/10/24 Head Grinder Relationship Specialty Start Date End Date Tapan Zazueta MD [address] [place] [address] PCP - General Family Medicine 06/10/24 Ariella Mathis DO [address] [place] [address] Referring Physician Neurology 01/02/24 Aida Reese NP [address] [place] [address] Nurse Practitioner Family Medicine 06/10/24 Head Grinder Relationship Specialty Start Date End Date Tapan Zazueta MD [address] [place] [address] PCP - General Family Medicine 06/10/24 Ariella Mathis DO [address] [place] [address] Referring Physician Neurology 01/02/24 Aida Reese NP [address] [place] [address] Nurse Practitioner Family Medicine 06/10/24 Head Grinder Relationship Specialty Start Date End Date Tapan Zazueta MD [address] [place] [address] PCP - General Family Medicine 06/10/24 Ariella Mathis DO [address] [place] [address] Referring Physician Neurology 01/02/24 Aida Reese NP [address] [place] [address] Nurse Practitioner Family Medicine 06/10/24 Head Grinder Relationship Specialty Start Date End Date Tapan Zazueta MD [address] [place] [address] PCP - General Family Medicine 06/10/24 Ariella Mathis DO [address] [place], [place] [address] Referring Physician Neurology 01/02/24 Aida Reese NP [address] [place] [address] Nurse Practitioner Family Medicine 06/10/24 Head Grinder Relationship Specialty Start Date End Date Tapan Zazueta MD [address] [place] [address] PCP - General Family Medicine 06/10/24 Ariella Mathis DO [address] [place] [address] Referring Physician Neurology 01/02/24 Aida Reese NP [address] [place] [address] Nurse Practitioner Family Medicine 06/10/24 Head Grinder Relationship Specialty Start Date End Date Tapan Zazueta MD [address] [place] [address] PCP - General Family Medicine 06/10/24 Ariella Mathis DO [address] [place] [address] Referring Physician Neurology 01/02/24 Aida Reese NP [address] [place] [address] Nurse Practitioner Family Medicine 06/10/24 Head Grinder Relationship Specialty Start Date End Date Tapan Zazueta MD [address] [place] [address] PCP - General Family Medicine 06/10/24 Ariella Mathis DO [address] [place] [address] Referring Physician Neurology 01/02/24 Aida Reese NP [address] [place] [address] Nurse Practitioner Family Medicine 06/10/24 Head Grinder Relationship Specialty Start Date End Date Tapan Zazueta MD [address] [place] [address] PCP - General Family Medicine 06/10/24 Ariella Mathis DO [address] [place] [address] Referring Physician Neurology 01/02/24 Aida Reese NP [address] [place] [address] Nurse Practitioner Family Medicine 06/10/24 Head Grinder Relationship Specialty Start Date End Date Tapan Zazueta MD [address] [place] [address] PCP - General Family Medicine 06/10/24 Ariella Mathis DO [address] [place] [address] Referring Physician Neurology 01/02/24 Aida Reese NP [address] [place] [address] Nurse Practitioner Family Medicine 06/10/24 Head Grinder Relationship Specialty Start Date End Date Tapan Zazueta MD [address] [place] [address] PCP - General Family Medicine 06/10/24 Ariella Mathis DO [address] [place] [address] Referring Physician Neurology 01/02/24 Aida Reese NP [address] [place] [address] Nurse Practitioner Family Medicine 06/10/24 Goals (unrecognized [...] BE BASED ON THE PRIMARY CLINICAL RECORDS. [employer] [facility]. provides no warranty or guarantee of the accuracy or completeness of information in this document.
--- OUTSIDE RECORDS SUMMARY | 2025-07-08 06:47 | XMS_ITS | Encounter Summary ---
Author Organization [facility] Address [address] [place] [address] Care Team Providers Care Reporting Coordinator Name Role Phone Shaikh BONNY Ohara Primary Care Provider [phone] Ariella Mathis DO Unavailable [phone] Tapan Barboza MD Primary Care Provider [phone] Mae Reese MARKER SHIPMENTS Unavailable [phone] Encounter Details Date Type Department Care Team (Late st Contact Info) Description 04/12/2024 Orders Only [facility] [address] [place] [address] Shaikh Ohara MD [address] [place] [address] Social History Tobacco Use Types Packs/Day Years [...] week 10/26/2023 How often do you attend [facility] or anglican services? More than 4 times per year 10/26/2023 Do you belong to any clubs o r organizations such as yazidi groups, unions, fraternal or athletic groups, or [...] Recorded Patient Health Questionnaire-2 Score 0 04/11/2024 [facility] [place] of Occupat ional Health - Occupational Stress [...] place to sleep or slept in a fpc (including now)? No 10/26/2023 Comments Unknown Sex [...] [facility] [place] [facility] [address] [place] [address] Denise Lazo MD [address] [place] [address] 07/17/2025 9:00 AM EDT Office Visit [facility] [address] [place] [address] Kaylene López NP [address] [place] [address] 12/15/2026 9:00 AM EST Office Visit [facility] [address] [place] [address] Yuri Bowers PA [address] [place] [address] documented as of this encounter [...] documented as of this encounter Care Teams Reporting Coordinator Relationship Specialty Start Date End Date Shaikh Ohara MD [address] [place] [address] PCP - General Internal Medicine 12/28/23 06/09/24 Tapan Barboza MD [address] [place] [address] PCP - General Family Medicine 06/10/24 Ariella Mathis DO [address] [place] [address] Referring Physician Neurology 01/02/24 Mae Reese NP [address] [place] [address] Nurse Practitioner Family Medicine 06/10/24 documented as of this encounter
--- OUTSIDE RECORDS SUMMARY | 2025-07-08 06:47 | XMS_ITS | Encounter Summary ---
Author Organization [facility] Address [address] [place] [address] Care Team Providers Care Decorating Machine Operator Name Role Phone Shaikh BONNY Ohara Primary Care Provider [phone] Ariella Mathis DO Unavailable [phone] Tapan Barboza MD Primary Care Provider [phone] Mae Reese REFRIGERATOR CRATER Unavailable [phone] Encounter Details Date Type Department Care Team (Late st Contact Info) Description 04/03/2024 Clinisync Result Encounter [facility] External Department Unsolicited Shaikh Ohara MD [address] [place] [address] Social History Tobacco Use Types Packs/Day Years [...] week 10/26/2023 How often do you attend [facility] or zoroastrianism services? More than 4 times per year [...] Patient Health Questionnaire-2 Score 0 04/03/2024 [facility] [place] of Occupat ional Health - Occupational Stress [...] place to sleep or slept in a correction (including now)? No 10/26/2023 Comments Unknown Sex [...] Dermatology [address] [place] [address] Denise Lazo MD [address] [place] [address] 07/17/2025 9:00 AM EDT Office Visit [facility] [address] [place] [address] Kaylene López NP [address] [place] [address] 12/15/2026 9:00 AM EST [facility] [address] [facility] [place] [address] Yuri Bowers PA [address] [place] [address] documented as of this encounter Procedures Procedure Name Priority Date/Time Associated Diagnosis Comments XR CHEST 2V 04/03/2024 4:27 PM EDT documented in this encounter Results * XR CHEST 2V (04/03/2024 4:27 PM EDT) Anatomical Region Laterality Modality Other 04/03/2024 4:27 PM EDT Narrative 04/03/2024 4:30 PM EDT The [address] [address] XRay Report Signed Patient: DIANA CHAMPION MR#: [id number] : 1955 Acct:[id number] Age/Sex: 68 / F ADM Date: 04/03/24 Loc: RAD Attending Dr: Shaikh Lev Velasquez Ordering Physician: Shaikh Eva Ohara Date of Service: 04/03/24 Procedure(s): XR chest 2V Accession Number(s): [id number] cc: Shaikh Eva Ohara The [address] [address] Patient Name: DIANA CHAMPION MRN: [id number] date: 1955 Sex: F Assigned Patient Location: [facility] Current Patient Location: [facility] Accession/Order Number: [id number] Exam Date: 04/03/2024 15:40 Report Date: 04/03/2024 [...] Signed By: 04/03/24 1630 DD/ 1627 TD/TT: Physical Scientist: Procedure Note Radiology, Radiologist, MD - 04/03/2024 [place] [address] XRay Report Signed Patient: DIANA CHAMPION AMR#: [id number] : 1955cct:[id number] Age/Sex: 68 / FADM Date: 04/03/24 Loc: RAD Attending Dr: Shaikh Lev Velasquez Ordering Physician: Shaikh Eva Ohara Date of Service: 04/03/24 Procedure(s): XR chest 2V Accession Number(s): [id number] cc: Shaikh Eva Ohara The [address] [address] Patient Name: DIANA CHAMPION MRN: [id number] date: 1955 Sex: F Assigned Patient Location: RAD Current Patient Location: RAD Accession/Order Number: [id number] Exam Date: 04/03/2024 15:40 Report Date: 04/03/2024 [...] M.D. Signed By:04/03/24 1630 DD/ 1627 TD/TT: Physical Scientist: us Shaikh Lev DRAPER [facility] Final Result documented in this encounter Visit Diagnoses Not on filedocumented in this encounter Additional Health Concerns Assessment Noted Time PHQ-9 Depression Total Score: 7 11/02/20 23 3:03 PM EST documented as of this encounter Care Teams Decorating Machine Operator Relationship Specialty Start Date End Date Shaikh Ohara MD [address] [place] [address] PCP - General Internal Medicine 12/28/23 06/09/24 Tapan Barboza MD [address] [place] [address] PCP - General Family Medicine 06/10/24 Ariella Mathis DO [address] [place] [address] Referring Physician Neurology 01/02/24 Mae Reese NP [address] [place] [address] Nurse Practitioner Family Medicine 06/10/24 documented as of this encounter
--- OUTSIDE RECORDS SUMMARY | 2025-07-08 06:47 | XMS_ITS | Encounter Summary ---
Author Organization [facility] Address [address] [facility] [place] [address] Care Team Providers Care Gis Consultant Name Role Phone Shaikh BONNY Ohara Primary Care Provider [phone] Ariella Mathis DO Unavailable [phone] Tapan Barboza MD Primary Care Provider [phone] Mae Reese CORE PASTER Unavailable [phone] Encounter Details Date Type Department Care Team [...] How often do you attend [facility] or confucianism services? More than 4 times per year 10/26/2023 Do you belong to any clubs o r organizations such as oriental orthodox groups, unions, fraternal or athletic groups, [...] Recorded Patient Health Questionnaire-2 Score 0 03/27/2024 [facility] of Occupat ional Health - [...] Dermatology [address] [place] [address] Denise Lazo MD [address] [place] [address] 07/17/2025 9:00 AM EDT Office Visit [facility] [address] [place] [address] Kaylene López NP [address] [place] [address] 12/15/2026 9:00 AM EST Office Visit [facility] [address] [place] [address] Yuri Bowers PA [address] [facility] [place] [address] documented as of this encounter Procedures Procedure Name Priority Date/Time Associated Diagnosis Comments XR THORACIC SPINE 3V 03/27/2024 7:50 AM EDT documented in this encounter Results * XR THORACIC SPINE 3V (03/27/2024 7:50 AM EDT) Anatomical Region Laterality Modality Other 03/27/2024 7:50 AM EDT Narrative 03/27/2024 7:53 AM EDT The [address] [address] XRay Report Signed Patient: DIANA CHAMPION MR#: [id number] : 1955 Acct:[id number] Age/Sex: 68 / F ADM Date: 03/26/24 Loc: RAD Attending Dr: Jose Saucedo NP Ordering Physician: Jose Saucedo NP Date of Service: 03/26/24 Procedure(s): XR thoracic spine 3V Accession Number(s): [id number] cc: Shaikh Eva Ohara; Jose Saucedo NP The [address] [address] Patient Name: DIANA CHAMPION MRN: [id number] date: 1955 Sex: F Assigned Patient Location: RAD Current Patient Location: Accession/Order Number: [id number] Exam Date: 03/26/2024 15:13 Report Date: 03/27/2024 [...] Signed By: 03/27/24 0753 DD/ 0750 TD/TT: [employer] Skills: Procedure Note Radiology, Radiologist, MD - 03/27/2024 [place] [address] XRay Report Signed Patient: DIANA CHAMPION AMR#: [id number] : 1955cct:[id number] Age/Sex: 68 / FADM Date: 03/26/24 Loc: [facility] Attending Dr: Jose Saucedo NP Ordering Physician: Jose Saucedo NP Date of Service: 03/26/24 Procedure(s): XR thoracic spine 3V Accession Number(s): [id number] cc: Shaikh Eva Ohara; Jose Saucedo NP The [place] [address] Patient Name: DIANA CHAMPION MRN: [id number] date: 1955 Sex: F Assigned Patient Location: [facility] Current Patient Location: Accession/Order Number: [id number] Exam Date: 03/26/2024 15:13 Report Date: 03/27/2024 [...] M.D. Signed By:03/27/24 0753 DD/ 0750 TD/TT: [employer] Combat Skills: us Generic External Data Provider [facility] Final Result documented in this encounter Visit Diagnoses Not on filedocumented in this encounter Additional Health Concerns Assessment Noted Time PHQ-9 Depression Total Score: 7 11/02/20 23 3:03 PM EST documented as of this encounter Care Teams Gis Consultant Relationship Specialty Start Date End Date Shaikh Ohara MD [address] [place] [address] PCP - General Internal Medicine 12/28/23 06/09/24 Tapan Barboza MD [address] [place] [address] PCP - General Family Medicine 06/10/24 Ariella Mathis DO [address] [place] [address] Referring Physician Neurology 01/02/24 Mae Reese NP [address] [place] [address] Nurse Practitioner Family Medicine 06/10/24 documented as of this encounter
--- OUTSIDE RECORDS SUMMARY | 2025-07-08 06:47 | XMS_ITS | Encounter Summary ---
Author Organization [facility] Address [address] [place] [address] Care Team Providers Care Nitrocellulose Maker Name Role Phone Shaikh BONNY Ohara Primary Care Provider [phone] Ariella Mathis DO Unavailable [phone] Tapan Barboza MD Primary Care Provider [phone] Mae Reese FIELD EDUCATION DIRECTOR Unavailable [phone] Encounter Details Date Type Department Care Team (Late st Contact Info) Description 03/27/2024 Clinisync Result Encounter [facility] External Department Unsolicited Shaikh Ohara MD [address] [place] [id number] Social History Tobacco Use Types Packs/Day Years [...] week 10/26/2023 How often do you attend [facility] or denominational services? More than 4 times per year [...] Recorded Patient Health Questionnaire-2 Score 0 03/27/2024 [facility] Independence of Occupat ional Health - Occupational Stress [...] in a longterm (including now)? No 10/26/2023 Comments Unknown Sex [...] Dermatology [address] [place] [address] Denise Lazo MD [address] [place] [address] 07/17/2025 9:00 AM EDT Office Visit [facility] [address] [place] [address] Kaylene López NP [address] [place] [address] 12/15/2026 9:00 AM EST [facility] Visit [facility] [address] [facility] [place] [address] Yuri Bowers PA [address] [place] [address] documented as of this encounter Procedures Procedure Name Priority Date/Time Associated Diagnosis Comments XR CHEST 2V 03/27/2024 4:02 PM EDT documented in this encounter Results * XR CHEST 2V (03/27/2024 4:02 PM EDT) Anatomical Region Laterality Modality Other 03/27/2024 4:02 PM EDT Narrative 03/27/2024 4:05 PM EDT The [address] [address] XRay Report Signed Patient: DIANA CHAMPION MR#: [id number] : 1955 Acct:[id number] Age/Sex: 68 / F ADM Date: 03/27/24 Loc: RAD Attending Dr: Shaikh Lev Velasquez Ordering Physician: Shaikh Eva Ohara Date of Service: 03/27/24 Procedure(s): XR chest 2V Accession Number(s): [id number] cc: Shaikh Eva Ohara [address] [id number] Patient Name: DIANA CHAMPION MRN: [id number] date: 1955 Sex: F Assigned Patient Location: [facility] Current Patient Location: [facility] Accession/Order Number: [id number] Exam Date: 03/27/2024 14:40 Report Date: 03/27/2024 [...] Signed By: 03/27/24 1605 DD/ 160 TD/TT: Export Freight Manager: Procedure Note Radiology, Radiologist, MD - 03/27/[address] [address] XRay Report Signed Patient: DIANA CHAMPION AMR#: [id number] : 1955cct:[id number] Age/Sex: 68 / FADM Date: 03/27/24 Loc: RAD Attending Dr: Shaikh Lev Velasquez Ordering Physician: Shaikh Eva Ohara Date of Service: 03/27/24 Procedure(s): XR chest 2V Accession Number(s): [id number] cc: Shaikh Eva Ohara The [address] [address] Patient Name: DIANA CHAMPION MRN: [id number] date: 1955 Sex: F Assigned Patient Location: RAD Current Patient Location: RAD Accession/Order Number: [id number] Exam Date: 03/27/2024 14:40 Report Date: 03/27/2024 [...] M.D. Signed By:03/27/24 1605 DD/ 1602 TD/TT: Export Freight Manager: Shaikh Lev [facility] Final Result documented in this encounter Visit Diagnoses Not on filedocumented in this encounter Additional Health Concerns Assessment Noted Time PHQ-9 Depression Total Score: 7 11/02/20 23 3:03 PM EST documented as of this encounter Care Teams Nitrocellulose Maker Relationship Specialty Start Date End Date Shaikh Ohara MD [address] [place] [address] PCP - General Internal Medicine 12/28/23 06/09/24 Tapan Barboza MD [address] [place] [address] PCP - General Family Medicine 06/10/24 Ariella Mathis DO [address] [place] [address] Referring Physician Neurology 01/02/24 Mae Reese NP [address] [place] [address] Nurse Practitioner Family Medicine 06/10/24 documented as of this encounter
--- NOTE | 2025-07-08 08:00 | ECG_ITS ---
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: : 1955 Requested By: [id number] Order Number: [id number] Reading MD: HETAL SCALES Measurements Intervals [place] Rate: 68 P: 57 VA: 132 QRS: 23 QRSD: 105 T: 33 QT: 421 QTc: 450 Interpretive Statements SINUS RHYTHM LOW QRS VOLTAGE IN PRECORDIAL LEADS [QRS DEFLECTION < 1.0 mV IN CHEST LEADS] SEPTAL MYOCARDIAL INFARCTION [40+ ms Q WAVE IN V1/V2], OF INDETERMINATE AGE Intraventricular conduction delay WARNING: DATA QUALITY MAY AFFECT INTERPRETATION Compared to ECG 07/06/2025 05:21:18 ST (T wave) deviation no longer present Prolonged QT interval no longer present Myocardial infarct finding still present Electronically Signed On 07-09-2025 13:47:59 EDT by HETAL SCALES
[2025-07-08] MEDS: PANTOPRAZOLE SODIUM 40 MG TABLET.DR PO ×2 (08:53→22:03)
[2025-07-08] MEDS: FERROUS SULFATE 325 MG TABLET PO (08:53)
[2025-07-08] MEDS: MAGNESIUM OXIDE 400 MG TABLET PO (08:54)
[2025-07-08] MEDS: MONTELUKAST SODIUM 10 MG TABLET PO (08:54)
[2025-07-08] MEDS: PREGABALIN 75 MG CAPSULE PO ×2 (08:54→22:03)
[2025-07-08] MEDS: METHYLPREDNISOLONE SOD SUCC PF 40 MG/ML VIAL IVP ×2 (08:54→22:03)
--- NOTE | 2025-07-08 09:05 | CM.NOTE ---
Rounds made with Dr. Dickinson, no discharge today. Discussed plan of care with pt. Dr. Dickinson asked pt about PT and OT, pt states she is getting around well with walker and denies needs for PT and OT.
[2025-07-08] MEDS: IPRATROPIUM/ALBUTEROL SULFATE 3 ML AMPUL.NEB IH ×3 (09:27→21:49)
[2025-07-08] MEDS: SODIUM CHLORIDE 3% INHALATION 15 ML NEB 6 ML IH ×3 (09:27→21:50)
[2025-07-08] MEDS: GUAIFENESIN 200 MG/DEXTROMETHORPHAN 20 MG 10 ML UNIT DOSE CUP PO (10:24)
--- NOTE | 2025-07-08 11:12 | PM.PN ---
Progress Note: Subjective Subjective Interval history: Seen and evaluated this morning, she is currently sitting up in the chair, she appears to be very close to her baseline on oxygen requirements however she gets extremely dyspneic with exertion still. She complains of a cough and inability to clear her sputum. Did talk to her about attempting inhaled hypertonic saline today to see if we she can help facilitate mucus clearance. Exam Narrative Exam Narrative: General: Awake and alert, no acute distress HEENT: Normocephalic, atraumatic, no scleral icterus noted Lungs: Minor expiratory wheezes, coarse inspiratory sounds. Cardiac: Regular rate and rhythm, no murmurs appreciated GI: Soft, nontender, regular bowel sounds. Extremities: Active and passive range of motion intact throughout, no edema Neuro: Cranial nerves II through XII intact, no focal deficits noted Skin: No rashes or lesions, no signs of jaundice Constitutional Vital Signs, click to edit/add: Last Vital Signs Temp 98.0 F 07/08/25 07:22 Pulse 83 07/08/25 09:54 Resp 20 07/08/25 09:31 BP 153/76 H 07/08/25 07:22 Pulse Ox 95 07/08/25 09:31 O2 Del Method Nasal Cannula 07/08/25 09:31 O2 Flow Rate 3 07/08/25 09:31 Progress Note: Objective Labs Labs: Short CBC 07/08/25 Range/Units 04:45 WBC 11.7 H (4.0-11.0) 10^3/uL Hgb 10.2 L (12.0-16.0) g/dL Hct 31.7 L (36.0-48.0) % Plt Count 303 (150-450) 10^3/uL BMP 07/08/25 04:45 Sodium 144 Potassium 4.2 Chloride 108 H Carbon Dioxide 27.5 BUN 15.0 Creatinine 0.95 Glucose 177 H Calcium 8.3 L Progress Note: A&P Assessment and Plan (1) Acute exacerbation of chronic obstructive pulmonary disease: Assessment and Plan: ? Likely secondary to infectious process ? Continue Levaquin as ordered ? Continue DuoNebs ? Continue Solu-Medrol 40 every 12 hours ? Will add inhaled hypertonic saline today to help facilitate mucus clearance (2) Hypokalemia: Assessment and Plan: Resolved, 4.2 this morning. Magnesium was normal on July 06. (3) Hypomagnesemia: Assessment and Plan: Replenished and stable (4) Chronic respiratory failure: Assessment and Plan: On 3 to 4 L at baseline (5) Anemia: Assessment and Plan: Stable and at her baseline Plan ? DVT prophylaxis addressed ? Normal diet ? DNR CCA Urinary Catheter Management Urinary Catheter Management Pure Wick: Cath placed during this visit: yes Urethral indwelling: No Insertion date: 07/07/25 Insertion time: 19:41
[2025-07-08] MEDS: PREDNISONE 20 MG TABLET 40 MG PO (12:21)
[2025-07-08] MEDS: FUROSEMIDE 20 MG TABLET PO (12:21)
--- NOTE | 2025-07-08 15:35 | SWNOTE1 ---
Important Message from [employer] reviewed and discussed with patient. Pt. verbalized understanding and signed the form. Original given to patient and copy placed in patient?s chart.
--- NOTE | 2025-07-08 15:35 | SWNOTE1 ---
SW met with pt to discuss dc needs. Pt lives at home with her son. Pt has 4 liters of home oxygen continuous from [facility]. Pt also has a NIV at home as well. Pt uses a walker at home. She voiced she was doing well at home and getting around well. Pt is not current with any services coming in. Pt voiced she has not anticipated discharge needs at this time. SW to follow as needed. Pt did ask SW about city plant supervisor. Pt stated she was seeing Dr. Lopes, but she is not willing to drive that far. Pt is open to seeing other pulmonologists. She is agreeable to see [facility]. SW to check in to process of new referral to [facility].
--- NOTE | 2025-07-08 15:41 | SWNOTE1 ---
JAZMIN called [facility] and asked the process for getting new patients in to them. She stated that pt will need to follow up with PCP first, then her PCP will have to send referral. JAZMIN did let the secretary specialist know that pt is current with Dr. Lopes. She stated the patient can also call Dr. Lopes's office and request a transfer of care as well. She stated they are still looking at for any new patient appointments. JAZMIN to let pt know.
--- NOTE | 2025-07-08 15:55 | SWNOTE1 ---
SW did let pt know that she will have to follow up with her PCP and they will have to send referral to [facility]. SW let her know that she can also call Dr. Lopes's office and request transfer of care. She stated we can just try through Kaylene's office. SW to call Kaylene López tomorrow and follow up.
[2025-07-08] MEDS: LEVOFLOXACIN IN DEXTROSE 5 % 500 MG/100 ML PREMIX 100 MG IV (16:25)
[2025-07-08] MEDS: ACETAMINOPHEN 325 MG TABLET 650 MG PO (16:27)
[2025-07-08] MEDS: ENOXAPARIN SODIUM 40 MG/0.4 ML SYRINGE SUBQ (22:02)
[2025-07-08] MEDS: TRAZODONE HCL 50 MG TABLET 100 MG PO (22:03)
[2025-07-08] MEDS: PRAMIPEXOLE 0.125 MG TABLET 0.25 MG PO (22:04)
[2025-07-08] MEDS: PAROXETINE HCL 20 MG TABLET 40 MG PO (22:04)
[2025-07-08] MEDS: LATANOPROST 0.005% 2.5 ML BOTTLE 1 DROP OP (22:04)
--- OUTSIDE RECORDS SUMMARY | 2025-07-08 23:59 | XMS_ITS | Continuity of Care Document ---
Author Organization [facility] Address [address] [place] [address] Care Team Providers Care Bag End Sewer Name Role Phone ROSI ZAZUETA Primary Care Physician [phone] Encounter FT_AMBFIN [id number] Date(s): 07/08/25 - 07/08/25 [facility] [address] [address] Discharge Disposition: Home (Routine DC) Attending Physician: Amalia Stephens PA-C Encounter Type: Clinic Allergies, Adverse Reactions, Alerts Substance Criticality Severity Reaction Reaction Severity Status fentaNYL Hallucinations Activ e Immunizations Given and Recorded Vaccine Date Status Refusal Reason influenza virus vaccine, inactivated 09/06/24 Brad rded influenza virus vaccine, inactivated 08/26/23 Brad rded influenza virus vaccine, inactivated 08/04/22 Brad rded influenza virus vaccine, inactivated 08/06/21 Brad rded influenza virus vaccine, inactivated 08/07/20 Brad rded influenza virus vaccine, inactivated 08/09/19 Brad rded influenza virus vaccine, inactivated 08/08/18 Brad rded influenza virus vaccine, inactivated 08/10/17 Brad rded pneumococcal 20-valent conjugate vaccine 08/09/23 Recorded zoster vaccine, inactivated 11/01/22 Recorded zoster vaccine, inactivated 08/27/22 Recorded SARS-CoV-2 (COVID-19) [id number] 08/04/22 Recorded SARS-CoV-2 (COVID-19) mRNA-1273 vaccine 03/25/22 R ecorded SARS-CoV-2 (COVID-19) mRNA-1273 vaccine 09/06/21 R ecorded SARS-CoV-2 (COVID-19) mRNA-1273 vaccine 1 02/04/21 Recorded SARS-CoV-2 (COVID-19) mRNA-1273 vaccine 2 01/07/21 Recorded pneumococcal 23-valent vaccine 10/19/18 Recorded 1Result Comment: 2025-03-24: TPV60 2Result Comment: 2025-03-24: TPV60 Medications albuterol 0.083% Inh Meagan 3 mL 2.5 mg, 3 mL Start Date: 10/15/24 Status: Ordered Repeat number: 1 baclofen 10 mg, Oral, Refills(s) 0 Start Date: 10/15/24 Status: Ordered Repeat number: 1 ferrous sulfate 325 mg Tab 325 mg = 1 tab(s), Oral, Daily Start Date: 10/15/24 Status: Ordered Repeat number: 1 fluticasone/umeclidinium/vilanterol 200 mcg-62.5 mcg-25 mcg/inh inhalation powder inh, Inhalation, Daily Start Date: 10/15/24 Status: Ordered Repeat number: 1 guaiFENesin 600 mg ER Tab 600 mg = 1 tab(s), Oral, q12hr Start Date: 10/15/24 Status: Ordered Repeat number: 1 Lasix 20 mg Tab mg tab(s), Oral, Daily Start Date: 10/15/24 Status: Ordered Repeat number: 1 magnesium oxide 400 mg Tab Start Date: 10/15/24 Status: Ordered Repeat number: 1 montelukast 10 mg Tab Refills(s) 0 Start Date: 10/15/24 Status: Ordered Repeat number: 1 Multi Vitamins oral tablet Oral, Daily, Refill(s) 0 Start Date: 10/15/24 Status: Ordered Repeat number: 1 omeprazole 20 mg Cap-DR 20 mg = 1 cap(s) Start Date: 10/15/24 Status: Ordered Repeat number: 1 paroxetine 30 mg Tab 30 mg = 1 tab(s) Start Date: 10/15/24 Status: Ordered Repeat number: 1 pramipexole 0.25 mg Tab mg tab(s), Oral Start Date: 10/15/24 Status: Ordered Repeat number: 1 pregabalin 75 mg Cap 75 mg = 1 cap(s) Start Date: 10/15/24 Status: Ordered Repeat number: 1 sodium chloride Start Date: 10/15/24 Status: Ordered Repeat number: 1 traMADOL 50 mg Tab 50 mg = 1 tab(s), Oral Start Date: 10/15/24 Status: Ordered Repeat number: 1 traZODONE 100 mg Tab 100 mg = 1 tab(s) Start Date: 10/15/24 Status: Ordered Repeat number: 1 trospium 20 mg oral tablet 20 mg = 1 tab(s), Oral, BID, # 60 tab(s), Refills(s) 11, Pharmacy: [facility], 163, cm, 10/15/24 14:36:00 EST, Height/Length Dosing, 107, kg, 10/15/24 14:36:00 EST, Weight Dosing Start Date: 11/06/24 Stop Date: 10/21/25 Status: Ordered Quantity: 60.0 Unit: tab(s) Repeat number: 12 Xalatan 0.005% Soln-Opth 1 drop(s) Start Date: 10/15/24 Status: Ordered Repeat number: 1 Problem List Condition Confirmation Course Effective Dates Status H ealth Status Informant JEANNE (acute kidney injury) Confirmed Active Arthritis Confirmed Active Arthropathy of right knee Confirmed Active Asthma Confirmed Active Benign essential HTN Confirmed Active Chronic respiratory failure with hypoxia Confirmed Active Stage 3a chronic kidney disease Confirmed Active Critical illness myopathy Confirmed Active Depression Confirmed Active Disc displacement, lumbar Confirmed Active Severe persistent asthma with exacerbation Confirmed Active GERD (gastroesophageal reflux disease) Confirmed Active Chronic heart failure with preserved ejection fraction Confirmed Active Right hip pain Confirmed Active Hyperlipidemia Confirmed Active Hyperuricemia Confirmed Active Mixed incontinence Confirmed Active Iron deficiency anemia Confirmed Active Leukocytosis Confirmed Active Lumbar spondylosis Confirmed Active Malaise Confirmed Active Colorectal cancer Confirmed Active 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 Primary osteoarthritis of knee Confirmed Active Primary osteoarthritis of right hip Confirmed Active Emphysema, unspecified Confirmed Active Restless leg syndrome Confirmed Active Other secondary pulmonary hypertension Confirmed Active Urge incontinence Confirmed Active Vitamin D deficiency Confirmed Active Procedures Procedure Date Related Diagnosis Body Site Status CE - Cataract extraction Completed Colonoscopy Completed Hip replacement Completed Knee replacement Complete d TL - Tubal ligation Compl eted Social History Social History Type Response Smoking Status Never (less than 100 in lifetime);Never entered on: 03/24/25 Sex Female Sex Representation Female (finding) Patient Care team information Care Team Personnel Name: ROSI ZAZUETA MD Position: FT Physician Member Role: Primary Care Physician Address: [address] [place] [address] Telecom: Care Team Related Persons Name: KAYLENE SOTO Name: KAYLENE SOTO Insurance Providers Guarantor name: JHONATAN A Memonic Plan Information #: 1 Payer: A[employer] Payer Identifier: [id number] Member Number: [id number] Group Number: [id number] Subscriber Identifier: [id number] Relationship to Subscriber: Self Coverage Type: MEDICARE Coverage Verification Date: 25 Telecom: [phone] Address: [address] [place], [place] [address] [place] [address] Health Plan Information #: 2 Payer: Medicaid Payer Identifier: [id number] Member Number: [id number] Group Number: [id number] Subscriber Identifier: [id number] Relationship to Subscriber: Self Coverage Type: MEDICAID Coverage Verification Date: 25 Telecom: [phone] Address: [address] [place] [id number]
[2025-07-09] VITALS (11 sets, daily range): BP systolic 135–162; BP diastolic 70–90; PULSE 61–76; TEMP 36.4–36.6; O2SAT 90–92
[2025-07-09 05:36] LABS: Anion Gap 11.8; Blood Urea Nitrogen 19.0 mg/dL (7.0-18.0); Calcium 8.7 mg/dL (8.5-10.1); Carbon Dioxide 29.3 mmol/L (21.0-32.0); Chloride 106 mmol/L (98-107); Estimated GFR (African America >60 (>=60 mL/min/1.73m^2); Estimated GFR (Non-African Ame 56 (>=60 mL/min/1.73m^2); Glucose 206 mg/dL (74-106); Magnesium 2.1 mg/dL (1.8-2.4); Potassium 4.1 mmol/L (3.5-5.1); Sodium 143 mmol/L (136-145)
[2025-07-09] MEDS: BACLOFEN 10 MG TABLET PO (05:56)
[2025-07-09] MEDS: PREGABALIN 75 MG CAPSULE PO (08:42)
[2025-07-09] MEDS: MAGNESIUM OXIDE 400 MG TABLET PO (08:42)
[2025-07-09] MEDS: PANTOPRAZOLE SODIUM 40 MG TABLET.DR PO (08:43)
[2025-07-09] MEDS: FERROUS SULFATE 325 MG TABLET PO (08:43)
[2025-07-09] MEDS: PREDNISONE 20 MG TABLET 40 MG PO (08:43)
[2025-07-09] MEDS: FUROSEMIDE 20 MG TABLET PO (08:43)
[2025-07-09] MEDS: MONTELUKAST SODIUM 10 MG TABLET PO (08:43)
--- NOTE | 2025-07-09 08:50 | CM.NOTE ---
Rounds made with Dr. Dickinson, pt will discharge to home today and f/u with PCP. SW working on getting pt changed over to see fundraising coordinator at [facility]. Pt is active with Dr. Lopes but will choose not to follow him at his new location. Pt has home oxygen and denies other discharge needs at this time.
--- NOTE | 2025-07-09 09:21 | SWNOTE1 ---
JAZMIN called Kaylene López office in regards to getting pt in to [facility]. JAZMIN had to leave message Kaylene's nurse. In the message JAZMIN let the nurse know that pt is here at hospital and she will need follow up with Pulmonology. JAZMIN advised that she is current with Dr. Lopes, but does not want to make that drive. JAZMIN did request that Kaylene's office send a referral to [facility] as soon as possible as they told JAZMIN they may not have an opening until October or November. JAZMIN requested the nurse call JAZMIN back and confirm they received message.
--- NOTE | 2025-07-09 11:31 | PM.DS1 ---
DS: Providers Provider Date of admission: 07/05/25 20:00 Primary care physician: Kaylene López NP Discharging clinician: GO COMBS DS: Diagnosis Discharge Diagnosis (1) Acute exacerbation of chronic obstructive pulmonary disease: (2) Hypokalemia: (3) Hypomagnesemia: (4) Chronic respiratory failure: (5) Anemia: DS: Summary Hospital Course Hospital Course: Miss Champion is a 69-year-old female who was admitted the hospital the afternoon of July 06 with a chief complaint of shortness of breath, cough and congestion. She has a history of COPD and trying Gyo bronchial malacia, she is on 3 L at baseline and vent at night. She was requiring 5 L on admission, she did desaturate to 85% on 3 L in the emergency room which is well below her baseline. 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 Her ceftriaxone was discontinued and she was changed to levofloxacin due to her recent history of Pseudomonas infection. Her oxygen was titrated down in a stepwise fashion. She received Solu-Medrol 40 mg every 12 hours starting on July 06, she received this all the way through July 08. The afternoon July 08 I felt the patient's respiratory wheeze had improved, however she was complaining of congestion that she was unable to cough up. I added hypertonic saline to her breathing treatments and she had a large response to this with copious secretions being coughed up for the next 24 hours. She was transition to prednisone on the morning of July 09, her lungs sounded better, she was back to her baseline 3 L, she was subsequently discharged in the hospital the afternoon of July 09. Time Spent with Patient Time attestation: Total time spent providing and/or coordinating discharge services: Exam Narrative Exam Narrative: General: Awake and alert, no acute distress HEENT: Normocephalic, atraumatic, no scleral icterus noted Lungs: Occasional rhonchi, some coarse breath sounds though the wheezing noted yesterday has improved. Cardiac: Regular rate and rhythm, no murmurs appreciated GI: Soft, nontender, regular bowel sounds. Extremities: Active and passive range of motion intact throughout, no edema Neuro: Cranial nerves II through XII intact, no focal deficits noted Skin: No rashes or lesions, no signs of jaundice Constitutional Vital Signs, click to edit/add: Last Vital Signs Temp 97.9 F 07/09/25 07:54 Pulse 71 07/09/25 09:54 Resp 20 07/09/25 07:54 BP 150/81 H 07/09/25 07:54 Pulse Ox 92 L 07/09/25 07:54 O2 Del Method Nasal Cannula 07/09/25 07:54 O2 Flow Rate 3 07/09/25 07:54 DS: Data Data Completed and Pending Labs on day of discharge: Labs from last 24 hours 07/09/25 04:56 Sodium 143 Potassium 4.1 Chloride 106 Carbon Dioxide 29.3 Anion Gap 11.8 BUN 19.0 H Creatinine 0.99 Est GFR ( Amer) >60 Est GFR (Non-Af Amer) 56 L BUN/Creatinine Ratio 19.2 Glucose 206 H Calcium 8.7 Magnesium 2.1 Preliminary micro results at discharge 07/05/25 04:00 Blood Culture Result 2 - Preliminary Blood - Right Antecubital NO GROWTH AT 36-48 HOURS. FINAL TO FOLLOW. 07/05/25 04:10 Blood Culture Result 1 - Preliminary Blood - Left Antecubital NO GROWTH AT 36-48 HOURS. FINAL TO FOLLOW. Discharge Plan Discharge Disposition: Home, Self-Care Discharge Medications: New prednisone 10 mg tablet 10 mg PO .as directed 16 Days Qty: 40 0RF Rx Instructions: Take 4 pills for 4 days take 3 pills for 4 days take 2 pills for 4 days take 1 pill for 4 days then stop Continued albuterol sulfate 2.5 mg /3 mL (0.083 %) solution for nebulization 2.5 mg inhalation QID PRN (Reason: shortness of breath or wheezing) latanoprost 0.005 % drops 1 drp OPHTHALMIC (EYE) .HS ferrous sulfate [iron] 325 mg (65 mg iron) tablet 325 mg PO DAILY trospium 60 mg capsule,extended release 24hr 60 mg PO DAILY Rx Instructions: must be taken on empty stomach at least 1 hour before a meal/food with water only Ohtuvayre 3 mg/2.5 mL suspension for nebulization 2.5 ml inhalation BID furosemide 20 mg tablet 20 mg PO .Q AM albuterol sulfate 90 mcg/actuation HFA aerosol inhaler 2 puff INHALATION Q4H PRN (Reason: shortness of breath or wheezing) fluticasone propionate 50 mcg/actuation spray,suspension 2 spray INTRANASAL DAILY bupropion HCl 150 mg tablet extended release 24 hr 150 mg PO .Q AM magnesium oxide 400 mg (241.3 mg magnesium) tablet 400 mg PO .Q AM cholecalciferol (vitamin D3) [VitaJoy Daily D] 25 mcg (1,000 unit) tablet,chewable 1,000 unit PO DAILY Breztri Aerosphere 160-9-4.8 mcg/actuation HFA aerosol inhaler 2 inh inhalation BID montelukast 10 mg tablet 10 mg PO .Q Am omeprazole 20 mg capsule,delayed release(DR/EC) 20 mg PO BID Patient Comments: Pt states that she takes these at 0900 and 2100 pregabalin 75 mg capsule 75 mg PO BID trazodone 100 mg tablet 100 mg PO .qhs baclofen 10 mg tablet 10 mg PO TID Patient Comments: Pt states she takes it with Breakfast, Lunch and HS paroxetine HCl 40 mg tablet 40 mg PO HS pramipexole 0.25 mg tablet 0.25 mg PO .qhs PRN (Reason: restless leg(s)) guaifenesin [Mucus Relief ER] 600 mg Tablet Extended Release 12hr 600 mg PO Q12H 7 Days Qty: 14 0RF Print Language: Vietnamese Patient Instructions: Prednisone (By mouth), COPD (Chronic Obstructive Pulmonary Disease) (DC) Forms: Portal Instructions Follow Up Appointments: 08/04 @ 10am with Kaylene López, RIKKI [phone] JAZMIN called Kaylene López office and left message for nurse. Requested Kaylene's office send referral to [facility]. Discharge Date/Time: 07/09/25 10:38
--- OUTSIDE RECORDS SUMMARY | 2025-07-10 00:41 | XMS_ITS | Encounter Summary ---
Author Organization [facility] Address [address] [place] [address] Care Team Providers Care User Support Specialist Name Role Phone Ariella Mathis DO Unavailable [phone] Tapan Barboza MD Primary Care Provider [phone] Mae Reese STEEL CONSTRUCTION WORKER Unavailable [phone] Encounter Details Date Type Department Care Team (Late st Contact Info) Description 07/15/2024 Orders Only [facility] [address] [place] [id number] Opioid use Social History Tobacco Use Types [...] How often do you attend chur or catholic services? More than 4 times per year 10/26/2023 Do you belong to any clubs o r organizations such as rastafarian groups, unions, fraternal or athletic groups, or [...] Recorded Patient Health Questionnaire-2 Score 0 07/11/2024 [facility] Occupat ional Health - Occupational [...] Office Visit [facility] [address] [facility] [address] [place] [address] Denise Lazo MD [address] [place] [address] 12/15/2026 9:00 AM EST Office Visit [facility] [address] [place] [address] Yuri Bowers PA [address] [place] [address] documented as of this encounter Visit Diagnoses Diagnosis Opioid use documented in this encounter Additional Health Concerns Assessment Noted Time PHQ-9 Depression Total Score: 7 11/02/20 23 3:03 PM EST documented as of this encounter Care Teams User Support Specialist Relationship Specialty Start Date End Date Tapan Barboza MD [address] [place] [address] PCP - General Family Medicine 06/10/24 Ariella Mathis DO [address] [place] [address] Referring Physician Neurology 01/02/24 Mae Reese NP [address] [place] [address] Nurse Practitioner Family Medicine 06/10/24 documented as of this encounter
--- OUTSIDE RECORDS SUMMARY | 2025-07-10 00:41 | XMS_ITS | Encounter Summary ---
Author Organization [facility] Address [address] [place] [address] Care Team Providers Care Mental Health Coordinator Name Role Phone Ariella Mathis DO Unavailable [phone] Tapan Barboza MD Primary Care Provider [phone] Mae Reese FORENSIC MEDICAL EXAMINER Unavailable [phone] Encounter Details Date Type Department Care Team (Late st Contact Info) Description 05/15/2025 Abstract [facility] [address] [place] [address] Kaylene López NP [address] [place] [address] Social History Tobacco Use Types Packs/Day Years [...] How often do you attend chur or adventism services? More than 4 times per year [...] Patient Health Questionnaire-2 Score 0 07/11/2024 [facility] Occupat ional Health - Occupational [...] in a jail (including now)? No 10/26/2023 Housing Stability Vital [...] in the past 12 m [facility], were you homeless or living in a jail (including now)? No 11/25/2024 Comments Unknown Sex [...] Dermatology [address] [place] [phone] Denise Lazo MD [address] [place] [address] 12/15/2026 9:00 AM EST Office Visit [facility] [address] [facility] [place] [address] Yuri Bowers PA [address] [place] [address] documented as of this encounter Goals [...] documented as of this encounter Care Teams Mental Health Coordinator Relationship Specialty Start Date End Date Tapan Barboza MD [address] [place] [address] PCP - General Family Medicine 06/10/24 Ariella Mathis DO [address] [place] [address] Referring Physician Neurology 01/02/24 Mea Reese NP [address] [place] [address] Nurse Practitioner Family Medicine 06/10/24 documented as of this encounter
--- OUTSIDE RECORDS SUMMARY | 2025-07-10 00:41 | XMS_ITS | Encounter Summary ---
Author Organization [facility] Address [facility] [place] [address] Care Team Providers Care Registered Midwife Name Role Phone Unavailable Primary Care Provider Unavailabl e Source Comments In the event this information is protected by the Federal Confidentiality of Alcohol and Drug AbusePatient Records regulations: The Federal rules restrict any use of the information to criminally investigate or prosecute any alcohol or drug abuse patient.[facility] Encounter Details Date Type Department Care Team (Late st Contact Info) Description 2021 [place] [address] Provider, f Medicare Coverage of Physical Exams [...] N ot on file 01/20/2021 Data from: https://www.[email or web address].medicine.[email or web address].edu/. Last address used for calculation Not [...]
--- OUTSIDE RECORDS SUMMARY | 2025-07-10 00:41 | XMS_ITS | Encounter Summary ---
Author Organization [facility] Address [address] [place] [address] Care Team Providers Care Corporate Licensed Broker Name Role Phone Ariella Mathis DO Unavailable [phone] Tapan Barboza MD Primary Care Provider [phone] Mae Reese RIM TECHNICIAN Unavailable [phone] Encounter Details Date Type Department Care Team (Late st Contact Info) Description 12/10/2024 Abstract [facility] [address] [facility] [place] [address] Mae Reese NP Social History Tobacco Use [...] week 11/25/2024 How often do you attend [facility] or yarsanism services? More than 4 times per year 11/25/2024 Do you belong to any clubs o r organizations such as adventist groups, unions, fraternal or athletic groups, or [...] Recorded Patient Health Questionnaire-2 Score 0 07/11/2024 [facility] Occupat ional Health - Occupational Stress [...] a skilled nursing (including now)? No 10/26/2023 Housing Stability Vital Sign Answer Dhruv e Recorded In the last 12 months, was t here a time when you were not able to pay the mortgage or rent on time? No 11/25/2024 In the past 12 months, how m any times have you moved where you were living? 0 11/25/2024 At any time in the past 12 m [facility], were you homeless or living in a skilled nursing (including now)? No 11/25/2024 Comments Unknown Sex [...] Dermatology [address] [place] [address] Denise Lazo MD [address] [place] [address] 12/15/2026 9:00 AM EST Office Visit [facility] [address] [facility] [place] [address] Yuri Bowers PA [address] [facility] [place] [address] documented as of this encounter Goals [...] documented as of this encounter Care Teams Corporate Licensed Broker Relationship Specialty Start Date End Date Tapan Babroza MD [address] [place] [address] PCP - General Family Medicine 06/10/24 Ariella Mathis DO [address] [place] [address] Referring Physician Neurology 01/02/24 Mae Reese NP [address] [place] [address] Nurse Practitioner Family Medicine 06/10/24 documented as of this encounter
--- OUTSIDE RECORDS SUMMARY | 2025-07-10 00:41 | XMS_ITS | Encounter Summary ---
Author Organization [facility] Address [address] [place] [address] Care Team Providers Care Administrative Appeals Tribunal Member Name Role Phone Ariella Mathis DO Unavailable [phone] Tapan Barboza MD Primary Care Provider [phone] Mae Reese MEDICAL AIDE Unavailable [phone] Encounter Details Date Type Department Care Team (Late st Contact Info) Description 05/22/2025 Abstract [facility] [address] [place] [address] Kaylene López NP [address] [place] [address] Social History Tobacco Use Types Packs/Day Years [...] How often do you attend chur or gnosticism services? More than 4 times per year 11/25/2024 Do you belong to any clubs o r organizations such as religion groups, unions, fraternal or athletic groups, or [...] Recorded Patient Health Questionnaire-2 Score 0 07/11/2024 [facility] Occupat ional Health - Occupational [...] in a snf (including now)? No 10/26/2023 Housing Stability Vital [...] time in the past 12 m [facility], were you homeless or living in a snf (including now)? No 11/25/2024 Comments Unknown Sex [...] [address] [place] [phone] Denise Lazo MD [address] [place] [address] 12/15/2026 9:00 AM EST Office Visit [facility] [address] [address] [place] [address] Yuri Bowers PA [address] [place] [address] documented as of this encounter Goals [...] documented as of this encounter Care Teams Administrative Appeals Tribunal Member Relationship Specialty Start Date End Date Tapan Barboza MD [address] [place] [address] PCP - General Family Medicine 06/10/24 Ariella Mathis DO [address] [place] [address] Referring Physician Neurology 01/02/24 Mae Reese NP [address] [place] [address] Nurse Practitioner Family Medicine 06/10/24 documented as of this encounter
--- OUTSIDE RECORDS SUMMARY | 2025-07-10 00:41 | XMS_ITS | Encounter Summary ---
Author Organization [facility] Address [address] [place] [address] Care Team Providers Care Processor Grain Name Role Phone Ariella Mathis DO Unavailable [phone] Tapan Barboza MD Primary Care Provider [phone] Mae Reese BUS PERSON Unavailable [phone] Encounter Details Date Type Department Care Team (Late st Contact Info) Description 04/30/2025 Abstract [facility] [address] [place] [address] Kaylene López NP [address] [place] [address] Social History Tobacco Use Types Packs/Day Years [...] How often do you attend chur or sabianism services? More than 4 times per year 11/25/2024 Do you belong to any clubs o r organizations such as jehovah's witness groups, unions, fraternal or athletic groups, or [...] Recorded Patient Health Questionnaire-2 Score 0 07/11/2024 [facility] of Occupat ional [...] No 10/26/2023 Housing Stability Vital Sign Answer Hdruv e Recorded In the last 12 months, was t here a time when you were not able to pay the mortgage or rent on time? No 11/25/2024 In the past 12 months, how m any times have you moved where you were living? 0 11/25/2024 At any time in the past 12 m [facility], were you homeless or living in [...] [address] [place] [address] Denise Lazo MD [address] [place] [address] 12/15/2026 9:00 AM EST Office Visit [facility] [address] [facility] [place] [address] Yuri Bowers PA [address] [place] [address] documented as of this encounter Goals [...] documented as of this encounter Care Teams Processor Grain Relationship Specialty Start Date End Date Tapan Barboza MD [address] [place] [address] PCP - General Family Medicine 06/10/24 Ariella Mathis DO [address] [place] [address] Referring Physician Neurology 01/02/24 Mae Reese NP [address] [place] [address] Nurse Practitioner Family Medicine 06/10/24 documented as of this encounter
--- OUTSIDE RECORDS SUMMARY | 2025-07-10 00:41 | XMS_ITS | Clinical Summary ---
Author Organization [facility] Address [facility] [place] [address] Care Team Providers Care Lease Attendant Name Role Phone Unavailable Primary Care Provider [...] N ot on file 01/20/2021 Data from: https://www.[email or web address].[email or web address]/. Last address used for calculation Not on [...] (1 - 1-dose 75+ series) 2031 Insurance [facility]
--- OUTSIDE RECORDS SUMMARY | 2025-07-10 00:41 | XMS_ITS | Encounter Summary ---
Author Organization [facility] Address [address] [place] [address] Care Team Providers Care Solderer Assembler Name Role Phone Shaikh BONNY Ohara Primary Care Provider [phone] Ariella Mathis DO Unavailable [phone] Tapan Barboza MD Primary Care Provider Mae Reese HAND WRAPPER OPERATOR Unavailable [phone] Encounter Details Date Type Department Care Team (Late st Contact Info) Description 01/26/2024 Clinisync Result Encounter [facility] External Department Unsolicited Shaikh Ohara MD [address] [place] [address] Social History Tobacco Use Types Packs/Day Years [...] week 10/26/2023 How often do you attend [facility] or nondenominational services? More than 4 times per year 10/26/2023 Do you belong to any clubs o r organizations such as druze groups, unions, fraternal or athletic groups, or [...] Recorded Patient Health Questionnaire-2 Score 0 01/25/2024 [facility] of Occupat ional Health - Occupational Stress [...] Dermatology [address] [place] [address] Denise Lazo MD [address] [place] [address] 12/15/2026 9:00 AM EST Office Visit [facility] [address] [place] [address] Yuri Bowers PA [address] [place] [address] documented as of this encounter Procedures Procedure Name Priority Date/Time Associated Diagnosis Comments XR LUMBAR SPINE 2 OR 3V 01/26/2024 7:39 AM EDT documented in this encounter Results * XR LUMBAR SPINE 2 OR 3V (01/26/2024 7:39 AM EDT) Anatomical Region Laterality Modality Radiographic Melania ging 01/26/2024 7:39 AM EDT Narrative 01/26/2024 7:[place] [address] XRay Report Signed Patient: DIANA CHAMPION MR#: [id number] : 1955 Acct:[id number] Age/Sex: 68 / F ADM Date: 01/25/24 Loc: RAD Attending Dr: Shaikh Lev Velasquez Ordering Physician: Shaikh Eva Ohara Date of Service: 01/25/24 Procedure(s): XR lumbar spine 2-3V Accession Number(s): [id number] cc: Shaikh Eva Ohara The [address] [address] Patient Name: DIANA CHAMPION MRN: [id number] date: 1955 Sex: F Assigned Patient Location: [facility] Current Patient Location: Accession/Order Number: [id number] Exam Date: 01/25/2024 12:50 Report Date: 01/26/2024 [...] Signed By: 01/26/24 0741 DD/ 0739 TD/TT: Concrete Stone Finishing Supervisor: Procedure Note Radiology, Radiologist, MD - 01/26/2024 [place] [address] XRay Report Signed Patient: DIANA CHAMPION AMR#: [id number] : 1955cct:[id number] Age/Sex: 68 / FADM Date: 01/25/24 Loc: RAD Attending Dr: Shaikh Lev Velasquez Ordering Physician: Shaikh Eva Ohara Date of Service: 01/25/24 Procedure(s): XR lumbar spine 2-3V Accession Number(s): [id number] cc: Shaikh Eva Ohara [place] [id number] Patient Name: DIANA CHAMPION MRN: [facility]:[id number] date: 1955 Sex: F Assigned Patient Location: [facility] Current Patient Location: Accession/Order Number: [id number] Exam Date: 01/25/2024 12:50 Report Date: 01/26/2024 [...] 07:39 Dictated By: Michael Patel M.D. Signed By:01/26/2441 DD/ TD/TT: Concrete Stone Finishing Supervisor: Shaikh Lev DRAPER IMG XR PROCEDURES Final Result documented in this encounter Visit Diagnoses Not on filedocumented in this encounter Additional Health Concerns Assessment Noted Time PHQ-9 Depression Total Score: 7 11/02/20 23 3:03 PM EST documented as of this encounter Care Teams Solderer Assembler Relationship Specialty Start Date End Date Shaikh Ohara MD [address] [place] [address] PCP - General Internal Medicine 12/28/23 06/09/24 Tapan Barboza MD [address] [place] [address] PCP - General Family Medicine 06/10/24 Ariella Mtahis DO [address] [place] [address] Referring Physician Neurology 01/02/24 Mae Reese NP [address] [place] [address] Nurse Practitioner Family Medicine 06/10/24 documented as of this encounter
--- OUTSIDE RECORDS SUMMARY | 2025-07-10 00:41 | XMS_ITS | CCD ---
Author Organization [facility] Care Team Providers Care Box Feeder Name Role Phone Steph Collier Attending Provider Unavailable Chantel Rainey Primary Care Provider Unavailabl e Joana, Herberth Attending Provider Unavailable Unavailable Primary Care Provider Unavailabl e UNKNOWN, PHYSICIAN Referring Unavailable JOO LINN Attending Unavailable JOO LINN Admitting Unavailable UNKNOWN, PHYSICIAN Primary Care Unavailable Rena Hurd Unavailable Joana, Herberth Unavailable Gato Domingo Unavailable [phone] Steph Collier Attending Provider [phone] MD Gato Domingo Attending Provider MD [...] e FAWWAD, MESSER H Primary Care Unavailable [place], DR BRITTANY Elizondo Consulting Unavailable ZIEBBETH, DR STEPH Holland Consulting Unavailable KARBLANCA ., [...] Unavailable Tapan Zazueta MD Primary Care Provider [phone] Aida Reese NP Unavailable MD Allan Lacey Attending Provider KELI Reese Primary Care [facility] er TAPAN ZAZUETA Primary Care Physician [phone] Allan Lacey MD Attending Provider Aida Correa Primary Care [facility] er Allan Lacey Attending Unavailable Aida Reese Primary Care Unavaila Allan Fregoso Admitting Unavailable Allan Lacey Attending Unavailable Aida Reese Primary Care Unavaila Allan Fregoso Admitting Unavailable Reese TRANSIT VEHICLE INSPECTOR, Aida Unavailable [phone] OMBALLI, MOHAMED Referring Unavailable RADHA, GHULAM Referring Unavailable OMBALLI, MOHAMED Admitting Unavailable OMBALLI, MOHAMED Attending Unavailable OMBALLI, MOHAMED Referring Unavailable ELTAHAWY, EHAB Attending Unavailable ELTAHAWY, EHAB Attending Unavailable OMBALLI, GUSTAVOAMED Attending Unavailable SAMSA BO Referring Unavailable OMBALLI, EMELIA Attending Unavailable OMBALLI, GUSTAVOAMED Attending Unavailable MAG BLOUNT Attending Unavailable AIDA REESE Referring Unavailabl MAG Layton Attending Unavailable JOSE ALEJANDRO, MAG Hester Attending Unavailable MAG BLOUNT Admitting Unavailable REESEAIDA AREVALO Attending Unavailabl e PETITTJESSICA Guardado Attending Unavailable RAMIN MAIER Attending Unavailable RAMIN MAIER Referring Unavailable RAMIN MAIER Referring Unavailable PETJESSICA PATTERSON Attending Unavailable REESEAIDA Attending Unavailabl e REESEAIDA Attending Unavailabl e REESEAIDA Attending Unavailabl e AICHHOLZ AKYLENE Attending Unavailable AICHHOLZ KAYLENE Attending Unavailable AICHHOLZ, KAYLENE Attending Unavailable AICHHOLZ, KAYLENE Attending Unavailable AICHHOLZ, KAYLENE Attending Unavailable REESEAIDA Attending Unavailabl e JAYNA GOODE Attending Unavailable REESEAIDA Referring Unavailabl e REESEAIDA Attending Unavailabl e Alicia DRAPER, Vandanarius Johnson Attending Unavailable Alicia DRAPER, Andrius Johnson Attending Unavailable Alicia DRAPER, Andrius Johnson Attending Unavailable Amalia Stephens Attending Unavailable Amalia Stephens Attending Unavailable Unavailable Unavailable Unavailable Allergies Allergy Classification Reported Allergen(s) Allergy Type Date of Onset Reaction(s) Facility (20 sources) fentaNYL; Translations: [fentanyl] Drug Allergy 07-07-20 17 Halluc[facility]finding[facility] (1 source) linezolid; Translations: [LINEZOLID] Drug Allergy 03-17-20 20 [facility] Repository (20 sources) Vancomycin; Translations: [VANCOMYCIN] Drug Allergy 03-17-20 Unknown [facility] Repository (14 sources) DENIES METAL SENSITITIVITY Propensity to adverse reactions 03-14-20 Unknown, Unknown Reaction [facility] Medications Current Medications Medication Drug Class(es) [...] sources) gamma-Aminobutyric Acid-ergic Agonist Start: 4 End: 5 baclofen 10 mg, Oral, Refills(s) 0 Start Date: 10/15/24 Status: Ordered Repeat number: 1 Start: 03-14-2024 End: 07-16-2024 take 1 tablet [...] / vilanterol 0.025 MG/ACTUAT Dry Powder Inhaler (5 sources) Anticholinergic, Corticosteroid, beta2-Adrenergic Agonist Start: 10-15-2024 fluticasone/umeclidinium/david anterol 200 mcg-62.5 mcg-25 mcg/inh inhalation powder inh, Inhalation, Daily Start Date: 10/15/24 Status: Ordered Repeat number: 1 Start: 10-15-2024 fluticasone/um eclidinium/vilanterol 200 mcg-62.5 mcg-25 mcg/inh inhalation powder inh, Inhalation, Daily Start Date: 10/15/24 Status: Ordered Fuqubfdhnkq-Cauwoszhq-Mvrkds (Trelegy Ellipta) 200-62.5-25 MCG/ACT aerosol powder (20 sources) End: 04-09-2025 take 1 puff(s) by mouth in the morning Godivezgrrk-Dpxaphfig-Ppxwky (Trelegy Ellipta) 200-62.5-25 MCG/ACT aerosol powder Take 1 puff by mouth in the morning. 04/09/2025 Discontinued (Ineffective) take 1 puff(s) by mo uth in the morning Ojqrugdovxo-Zkzbmrxow-Rcpcdv (Trelegy El lipta) 200-62.5-25 MCG/ACT aerosol powder Take 1 puff by mouth in the morning. Active Lgmrfdcvudp-Sxztnxqip-Zqksnt er (7 sources) Start: 03-14-2024 Xdanbgsjmcp-Nnndlwibt-Yufnij er (Trelegy Ellipta) 200-62.5-25 mcg blister with device Active 1 INH INHALATION Daily March 13, 2024 11:00pm Start: 03-14-2024 Fluticasone-Um eclidin-Vilanter (Trelegy Ellipta) 200-62.5-25 mcg blister with device Active 1 INH INHALATION Daily March 14, 2024 12:00am Start: 12-08-2022 End: 03-14-2024 Rwujhdgcnfd-Vxrizxukp-Qekkjc er (Trelegy Ellipta) 200-62.5-25 mcg blister with device Discontinued 1 INH INHALATION As Directed December 08, 2022 12:00am March 14, 2024 9:40am Start: 12-08-2022 End: 03-14-2024 Jzhlhtfpwpo-Wmueqhvmz-Zurqta er (Trelegy Ellipta) 200-62.5-25 mcg blister with device Discontinued 1 INH INHALATION As Directed December 08, 2022 1:00am March 14, 2024 10:40am Start: 12-08-2022 Fluticasone-Um eclidin-Vilanter (Trelegy Ellipta) 200-62.5-25 mcg blister with device Active 1 INH INHALATION As Directed December 08, 2022 12:00am furosemide 20 mg oral tablet (20 sources) Loop Diuretic Start: 04-10-2024 End: 08-10-2025 take 1 mg by mouth once daily Lasix 20 mg Tab mg tab(s), Oral, Daily Start Date: 10/15/24 Status: Ordered Repeat number: 1 take 1 tablet by bessie th every [...] 400 mg oral tablet (20 sources) Start: 10-15-2024 magnesium oxid e 400 mg Tab Start Date: 10/15/24 Status: Ordered Repeat number: 1 Start: 08-09-2022 End: 04-15-2024 magnesium oxide 400 mg Tab S tart Date: 10/15/24 Status: Ordered Repeat number: 1 [...] directed Orally Active Multi Vitamins oral tablet (5 sources) Start: 10-15-2024 take 1 tablet by [...] days 22 g 06/05/2025 06/15/2025 Active nystatin 084888 unt/ml topical cream (7 sources) Polyene Antifungal [...] 180 capsule 06/03/2024 09/03/2024 Discontinued (Reorder) Start: 05-09-2024 take 1 capsule by [facility] twice daily Omeprazole 20 mg capsule,delayed release(DR/EC) Active 20 MG PO Twice daily March 13, 2024 11:00pm Start: 07-07-2017 End: 03-14-2024 take 1 tablet by mouth once daily Omeprazole 20 mg Tablet,Delayed Release (Dr/Ec) Discontinued 20 MG PO Daily July 06, 2017 11:00pm March 14, 2024 9:41am take 1 capsule by [facility] every twelve hours Omeprazole 20 MG 1 CAPSULE Orally TWICE A DAY Active take 1 capsule by [facility] once daily Omeprazole 20 MG [...] Active Start: 08-05-2022 take 1 tablet by [facility] every twelve hours Potassium Chloride [...] Daily 06/10/2024 Active pregabalin 75 mg oral capsul e (20 sources) Start: 03-14-2024 End: 05-29-2025 pregabalin 75 mg Cap 75 mg = 1 cap(s) Start Date: 10/15/24 Status: Ordered Repeat number: 1 Sodium Chloride (20 sources) Start: 10-15-2024 sodium [...] Serotonin Reuptake Inhibitor Start: 10-15-2024 End: 08-17-2025 traZODONE 100 mg Tab 100 mg = 1 tab(s) Start Date: 10/15/24 Status: Ordered Repeat number: 1 Start: 07-17-2024 take 1 tablet by bessie [...] Active trospium chloride 20 mg oral tablet (17 sources) Cholinergic Muscarinic Antagonist Start: End: take 1 tablet by mouth twice daily trospium 20 mg oral tablet 20 mg = 1 tab(s), Oral, BID, # 60 tab(s), Refills(s) 11, Pharmacy: [facility], 163, cm, 10/15/24 14:36:00 [...] mg oral tablet (6 sources) Benzodiazepine Start: 017 End: take 1 tablet by mouth once [...] 1 puff(s) by inhalation twice daily Ipratropium [place] (Atrovent Hfa) 17 mcg/actuation Hfa Aerosol Inhaler [...] mg tablet Discontinued 50 MG PO Daily 90 April 09, 2024 11:00pm April 10, 2024 [...] Problem Classification Problem Date Documented Date Episodic/Chronic Acute and unspecified renal failure (20 sources) Acute renal failure syndrome; Translations: [Acute kidney failure, unspecified] Onset: 4 Resolved: 5 12-28-2023 Episodic Asthma (20 sources) Asthma; Translations: [Unspecified asthma, [...] Translations: [Anemia in chronic kidney disease] Chronic Deficiency and other anemia (20 sources) Iron deficiency anemia; Translations: [Iron deficiency anemia, unspecified] Onset: 3 10-04-2023 Episodic Diseases of white blood cells (20 sources) [...] kidney disease] Onset: 2 Resolved: 2 Chronic Malaise and fatigue (20 sources) Malaise; Translations: [Other malaise] Onset: 4 Resolved: 5 12-05-2023 Episodic Mood disorders (20 sources) Depressive disorder; Translations: [Depression] Onset: 3 10-04-2023 Chronic Mycoses (20 sources) Candidiasis of vagina; Translations: [Vaginal guero] Onset: 5 09-10-2024 Episodic Neoplasms of unspecified nature or [...] right knee] Episodic Other non-traumatic joint disorders (20 sources) Hip pain; Translations: [Pain in left hip] Onset: 3 Resolved: 5 10-04-2023 Episodic Other non-traumatic joint disorders (1 source) [...] DZ] Onset: 2 Resolved: 2 Episodic Other nutritional; endocrine; and metabolic disorders (20 sources) Hyperuricemia; Translations: [Hyperuricemia without signs of inflammatory arthritis and tophaceous disease] Onset: 4 12-05-2023 Episodic Other skin disorders (2 sources) Seborrheic [...] antidepressant monitoring plan Onset: 4 07-17-2024 Unclassified (5 sources) Arthropathy of right knee joint 10-15-2024 Unclassified (5 sources) Displacement of lumbar intervertebral disc 10-15-2024 Unclassified (5 sources) Malignant colorectal neoplasm 10-15-2024 Viral infection (1 source) COVID-19; Translations: [COVID-19] Onset: Past or Other Problems Problem Classification Problem Date Documented Da te Episodic/Chronic Cardiac dysrhythmias (20 sources) Atrial fibrillation; Translations: [...] papillomavirus (HPV)] Onset: 08-30-2021 Resolved: 08-30-2021 Episodic Mood disorders (20 sources) Mood disorders [...] right hip] Onset: 10-04-2023 10-04-2023 Episodic Other screening for suspected conditions (not [...] UNSP] Onset: 08-19-2022 Viral infection (20 sources) COVID-; Translations: [Other specified viral infection] Onset: 11-12-2024 03-14-2024 Episodic Results Test Name Value Interpretation Reference Range Facility XR Hip - right [address] [place] [address] XRay Report Signed Patient: DIANA CHAMPION MR#: [id number] : 1955 Acct:[id number] Age/Sex: 69 / F ADM Date: 04/30/25 Loc: [facility] Attending Dr: Jose Saucedo NP Ordering Physician: Jose Saucedo NP Date of Service: 04/30/25 Procedure(s): XR hip RT min 2V Accession Number(s): [id number] cc: Kaylene López TRANSIT VEHICLE INSPECTOR; Jose Saucedo NP [place] [id number] Patient Name: DIANA CHAMPION MRN: [id number] date: 1955 Sex: F Assigned Patient Location: [facility] Current Patient Location: [facility] Accession/Order Number: [id number] Exam Date: 04/30/2025 13:45 Report Date: 04/30/2025 [...] Jr., D.O. 04/30/2025 1:46 PM Dictation Location: [place] [address] Electronically authenticated by: [id number] Y Date: 04/30/2025 13:46 Dictated By: Marcos Medina M.D. Signed By: 04/30/25 1349 DD/ 1346 TD/TT: Plumber Assistant: [facility] Radiology, Radiologi MD anupama - 04/30/2025 [place] [address] XRay Report Signed Patient: DIANA CHAMPION MR#: [id number] : 1955 Acct:[id number] Age/Sex: 69 / F ADM Date: 04/30/25 Loc: RAD Attending Dr: Jose Saucedo NP Ordering Physician: Jose Saucedo NP Date of Service: 04/30/25 Procedure(s): XR hip RT min 2V Accession Number(s): [id number] cc: Kaylene López NP; Jose Saucedo NP [facility] [place] [id number] Patient Name: DIANA CHAMPION MRN: [facility]:[id number] date: 1955 Sex: F Assigned Patient Location: [facility] Current Patient Location: [facility] Accession/Order Number: [id number] Exam Date: 04/30/2025 13:45 Report Date: 04/30/2025 13:46 At the request of: JOSE SAUCDEO NP Procedure: XR hip RT min 2V RIGHT HIP - 2 views: CLINICAL HISTORY: Right Hip Osteoarthritis COMPARISON: Right hip series 03/24/2023 FINDINGS: Severe degenerative changes of the right hip without acute bony process. XR/XR hip RT min 2V IMPRESSION: SEVERE DEGENERATIVE CHANGES OF THE RIGHT HIP WITHOUT ACUTE BONY PROCESS.. Impression dictated by: Marcos Medina Jr., D.O. 04/30/2025 1:46 PM Dictation Location: [place] [address] Electronically authenticated by: [id number] Y Date: 04/30/2025 13:46 Dictated By: Marcos Medina M.D. Signed By: 04/30/25 1349 DD/ 1346 TD/TT: Plumber Assistant: [facility] Radiology Study observation (narrative) [facility] XR Hip - right 3 ViewsOrdere d By: Radiologist Radiology on 04-30-2025 [facility] Communication Intelligence Work Phone: Ambulatory Visit Summaryon 0 03-24-2025 [...] MICHAUD, MAG Hester Where: [facility] [address] [place] [address]- Medications What How Much When Instructions Unchanged [...] rashes or suspicious lesions Assessment/Plan CHF - [facility] [place] CKD - Joana COPD/Pulm - Samsa/Omballi. Required [...] IR BID. Pt currently rehabbing at [facility] [place] d/t double pneumonia. Has been there x1 week, plan is to hopefully return home within the next week or so. F/u 3 mos to assess efficacy. Ordered: Body Mass Index (BMI) documented 3008F Current tobacco non-user 1036F Depression Screening Negative 3352F E&M of Est. Patient Moderate 30-39 Min 05111 Medication list documented in medical record 1159F [...] Substance Abuse (more content not included)... Normal [facility] Comment on above: Result Comment: Elec tronically Signed By: MAG BLOUNT PA-C\.br\Date and Time Signed: 03/24/25 10:44 EDT MG Breast - bilateral Screen ingon 03-03-2025 [place] [address] Mammography Report Signed Patient: DIANA CHAMPION MR#: [id number] : 1955 Acct:[id number] Age/Sex: 69 / F ADM Date: 03/03/25 Loc: MAMMO Attending Dr: Kaylene López NP Ordering Physician: Kaylene López NP Results: Date of Service: 03/03/25 Follow Up: Procedure(s): MM screening mammo BI Accession Number(s): [id number] cc: Kaylene López NP Patient Name: DIANA CHAMPION MR#: [id number] : 1955 Exam Date: 03/03/2025 Ordering Doctor: [...] radiation, chemotherapy Family Cancers None LOCATION: [facility] BREAST COMPOSITION: The breasts are almost [...] M.D. Signed By: 03/03/251642 DD/ 41 TD/TT: Plumber Assistant: [facility] Radiology, Radiologhernandez altman MD - 03/03/2025 [place] [address] Mammography Report Signed Patient: DIANA CHAMPION MR#: [id number] : 1955 Acct:[id number] Age/Sex: 69 / F ADM Date: 03/03/25 Loc: MAMMO Attending Dr: Kaylene López NP Ordering Physician: Kaylene López NP Results: Date of Service: 03/03/25 Follow Up: Procedure(s): MM screening mammo BI Accession Number(s): [id number] cc: Kaylene López NP Patient Name: DIANA CHAMPION MR#: [id number] : 1955 Exam Date: 03/03/2025 Ordering Doctor: [...] radiation, chemotherapy Family Cancers None LOCATION: [facility] BREAST COMPOSITION: The breasts are almost [...] M.D. Signed By: 03/03/251642 DD/ 41 TD/TT: Plumber Assistant: [facility] Radiology Study observation (narrative) [facility] MG Breast - bilateral Screen ingOrdered By: Radiologist Radiology on 03-03-2025 [facility] Work Phone: Office Visiton 01-23-2025 Follow-up visit [id number] Nell Champion 1955 F Date Provider Department Center 01/23/2025 271-HETAL CHURCH [facility] Family History Problem Relation Age of Onset Heart failure Mother Heart disease Father Family Status - Relation Status Age at Mother Father Level of Service:30409 [place] OFFICE/OUTPATIENT ESTABLISHED LOW MDM 20 MIN Normal [facility] Laboratory - Microbiology an d Antimicrobial susceptibilityon 01-02-2025 SARS-CoV-2 (COVID-19) RNA KAYLEE+probe Ql (Unsp spec) Negative [facility] No Panel Informationon 01-02 FLU A Negative [facility] FLU B Negative [facility] Interpretation and review of laboratory results Normal [facility] XR Hip - right 3 [facility] Result: AP and Lateral right hip No acute fracture Mild SI joint arthritic changes Pt has severe arthritis to right hip joint with subchondral cyst and sclerosis to femoral head and acetabulum. Stable hardware left hip on AP view Impression: Severe right hip arthritis. [facility] Radiology Study observation (narrative) [facility] XR Knee - right 1 [...] dislocation. Impression: Unremarkable right total knee arthroplasty [facility] Radiology Study observation (narrative) [facility] Panel Informationon 12-13 Complexity: simple Destruction method: cryotherapy Informed consent: discussed and consent obtained Informed consent comment: The risks of the procedure were discussed, including, but not limited to risks of scarring, darker or ham smoker pigmentary changes, recurrence, infection, and incomplete removal [...] or tenderness. Additional details: Previous accession number: [id number] [facility] No Panel InformationOrdered By: Pat Mcfarland on 12-13-2024 [facility] Work Phone: Abstracton 10-24-2024 Abstract [id number] Nell Champion 1955 F Date Provider Department Center 10/24/2024 EMELIA MORALES [facility] ONC DCC Family History Problem Relation Age of Onset Heart failure Mother Heart disease Father Family Status - Relation Status Age at Mother Father Normal [facility] C Urineon 10-18-2024 Bacteria identified [...] Locations R1: This test was performed at: [facility], [address] [place] [address], [id number]- , , [facility] [place] Comment on above: Performed By: #### [id number] #### [facility] [address] [place] [id number] Ambulatory Visit Summaryon 1 12-16-2023 Ambulatory Visit Summary Ambulatory Visit Summary DIANA CHAMPION :1955 Visit Date:10/15/2024 Ambulatory Visit Instructions Your Diagnosis Urge incontinence Your Care Team Attending Physician - MAG BLOUNT PA-C Primary Care Physician - TAPAN ZAZUETA MD Referring Physician - MS. AIDA REESE This [...] BLOUNT PA-C Where: [facility] [address] [place] [address]- Medications What How Much When Instructions Unchanged [...] for choosing us for your care. Normal [facility] No Panel Informationon 10-11 Type [...] taken Amount of lidocaine used: 0.5 cc [facility] 36on 09-20-2024 36 Faxed to [facility]. Ticker put in for Nov 2024 for patient to be scheduled with Dr. Church. [facility] 36on 09-12-2024 36 Patient called requesting clearance prior to cataract surgery. You saw her in May, and she had an echo shortly after (05/28/24 in director paid media). Please advise. Thanks. [facility] EPITHELIAL CELLSon 4 Epithelial cells LM Ql (Urine sed) Epithelial Cells Few [facility] No Panel Informationon 08-13 [facility] RESULT 1on 08-13-2024 RESULT 1 Result 1 Moderate budding yeast present. [facility] RESULT 2on 08-13-2024 RESULT 2 Result 2 Few gram positive cocci [facility] RESULT 3on 08-13-2024 RESULT 3 Result 3 TRANSIT VEHICLE INSPECTOR [facility] Healthcare RESULT 4on 08-13-2024 RESULT 4 Result 4 TRANSIT VEHICLE INSPECTOR [facility] WHITE BLOOD CELLSon 08-13-20 24 WHITE BLOOD CELLS White Blood Cells [facility] Healthcare WHITE BLOOD CELLS Few [facility] Healthcare ALL CBC WITH AUTO DIFFon BASOPHILS ABSOLUTE AUTO 0.1 [facility] Basophils/100 WBC (Bld) 0.5 % 0.2 - 2.0 % [facility] Eosinophils/100 WBC (Bld) 1.5 % 0.9 - 7.0 % [facility] Erythrocyte distribution width (RBC) [Ratio] 13.0 % 11.0 - 15.0 % [facility] Hematocrit (Bld) [Volume fraction] 39.0 % 36.0 - 48.0 % [facility] Hemoglobin (Bld) [Mass/Vol] 12.2 g/dL 12.0 - 16.0 g/dL [facility] IMMATURE GRANULOCYTES ABS AUTO 0.22 High [facility] Immature granulocytes/100 WBC (Bld) 2.4 % High 0.0 - 0.5 % [facility] Interpretation and review of laboratory results Abnormal [facility] LYMPHOCYTES ABSOLUTE AUTO 1.6 [facility] Lymphocytes/100 WBC (Bld) 17.2 % Low 20.5 - 60.0 % [facility] MCH (RBC) [Entitic mass] 29.7 pg 26.7 - 34.0 pg [facility] MCHC (RBC) [Mass/Vol] 31.3 g/dL 29.9 - 35.2 g/dL [facility] MCV (RBC) [Entitic vol] 94.9 fL 81.0 - 99.0 fL [facility] MONOCYTES ABSOLUTE AUTO 0.8 [facility] Monocytes/100 WBC (Bld) 8.3 % 1.7 - 12.0 % [facility] NEUTROPHILS ABSOLUTE AUTO 6.4 [facility] Neutrophils/100 WBC (Bld) 70.1 % 43.0 - 75.0 % [facility] Platelet mean volume (Bld) [Entitic vol] 8.8 fL Low 9.5 - 13.5 fL [facility] TBH EO # 0.1 [facility] TBH PLT 266 [facility] TB RBC 4.11 Low [facility] TB WBC 9.1 [facility] Telemedicineon 07-11-2024 Telemedicine [id number] Nell Champion 1955 F Date Provider Department Center 07/11/2024 EMELIA MORALES [facility] ONC DCC Family History Problem Relation Age of Onset Heart failure Mother Heart disease Father Family Status - Relation Status Age at Mother Father Level of Service:56739 [place] PHYS/QHP TELEPHONE EVALUATION 21-30 MIN (GC) Reason for Visit and Comments: Telehealth Phone Visit [502] - Tracheobronchomalacia follow up per Dr Canseco. [facility] HPon 07-02-2024 H&P reviewed. The patient [...] PSYCH: appropriate mood, affect, and judgement. Normal [facility] NURSNOTEon 07-02-2024 NURSNOTE Follow up at [facility] with Matthew Vargas May resume a Regular Diet and home medications. Normal [facility] NURSNOTE Bronchoscopy Finding s: Tracheobronchomalacia Normal [facility] Telephoneon 06-27-2024 Telephone [id number] Nell Champion 1955 F Provider Department Center 06/27/2024 [facility] ONC DCC Family History Problem Relation Age of Onset Heart failure Mother Heart disease Father Family Status - Relation Status Age at Mother Father [facility] Prep for Procedureon 024 Prep for Procedure [id number] Nell Champion 1955 Provider Department Center 06/26/2024 EMELIA MORALES [facility] Medical Family History Problem Relation Age of Onset Heart failure Mother Heart disease Father Family Status - Relation Status Age at Mother Father Normal [facility] HPon 06-25-2024 HP ---- -------- [...] Age: 68 y.o. : 1955 Account No.: [id number] Referring physician: Dr. Bo Mcclain Chief complaint: Recurreny pneumonia HPI Diana Champion is a 68 y.o. female with PMHx of reportedly COPD, chronic hypoxic respiratory failure on 2L home O2 who is presenting to clinic as a new patient after being referred by Dr. Bo Baker of [facility]. Patient has been admitted 4 times [...] years. 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 Yes Historical Provider, yqupiirfaem-brtjhjmtn-wj lanter 100-62.5-25 mcg blister with device Yes [...] ER ta (more content not included)... 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 CT DONE 04-11-24 AND 06-07-24 AT [facility]. RECORDS SCANNED INTO MEDIA. FILMS REQUESTED- requested 3 times and [employer] IS DOWN. Could not get films. Normal [facility] Office Visiton 05-13-2024 Follow-up visit [id number] Nell Champion 1955 Provider Department Center 05/13/2024 [id number]-HETAL [facility] Family History Problem Relation Age of Onset Heart failure Mother Heart disease Father Family Status - Relation Status Age at Mother Father Level of Service:21531 [place] OFFICE/OUTPATIENT ESTABLISHED MOD MDM 30 MIN [facility] Erythrocyte distribution wid th Auto (RBC) [Ratio]on 03-06-2024 Erythrocyte distribution width (RBC) [Ratio] 13.2 % 11.0-15.0 [facility] Estimated glomerular filtrat ion rate (GFR) non- Americanon 03-06-2024 GFR/1.73 sq M.predicted among non-blacks MDRD (S/P/Bld) [Vol rate/Area] 57 mL/min/{1.73_m2} >=60 [facility] Hematocrit Auto (Bld) [Volum e fraction]on 03-06-2024 Hematocrit (Bld) [Volume fraction] 38.7 % 36.0-48.0 [facility] Hemoglobin [Mass/volume] in Bloodon 03-06-2024 Hemoglobin (Bld) [Mass/Vol] 12.2 g/dL 12.0-16.0 [facility] Laboratory - Chemistry and C hemistry - challengeon 03-06-2024 Albumin [Mass/Vol] 3.0 g/dL 3.4-5.0 [facility] Calcium [Mass/Vol] 8.8 mg/dL 8.5-10.1 [facility] Chloride [Moles/Vol] 104 mmol/L 98-107 [facility] CO2 [Moles/Vol] 32.2 mmol/L 21.0-32.0 [facility] Creatinine [Mass/Vol] 0.97 mg/dL 0.55-1.02 [facility] GFR/1.73 sq M.predicted MDRD (S/P/Bld) [Vol rate/Area] mL/min/{1.73_m2} >=60 [facility] Glucose [Mass/Vol] 67 mg/dL 74-106 [facility] Magnesium [Mass/Vol] 1.9 mg/dL 1.8-2.4 [facility] Potassium [Moles/Vol] 3.4 mmol/L 3.5-5.1 [facility] Sodium [Moles/Vol] 143 mmol/L 136-145 [facility] Urate [Mass/Vol] 5.0 mg/dL 2.6-6.0 [facility] Urea nitrogen [Mass/Vol] 16.0 mg/dL 7.0-18.0 [facility] Urea nitrogen/Creatinine [Mass ratio] 16.5 mg/mg [facility] Leukocytes [#/volume] correc melanie for nucleated erythrocytes in Blood by Automated counon 03-06-2024 WBC corrected for nucl RBC Auto (Bld) [#/Vol] 8.1 10 3/uL 4.0-11.0 [facility] MCH Auto (RBC) [Entitic mass ]on 03-06-2024 MCH (RBC) [Entitic mass] 30.4 pg 26.7-34.0 [facility] MCHC Auto (RBC) [Mass/Vol]on 03-06-2024 MCHC (RBC) [Mass/Vol] 31.5 g/dL 29.9-35.2 [facility] MCV Auto (RBC) [Entitic vol] on 03-06-2024 MCV (RBC) [Entitic vol] 96.5 fL 81.0-99.0 [facility] No Panel Informationon 03-06 Urine Random Creatinine 63.27 mg/dL 20.00-300.00 [facility] Urine Random Total Protein <6.0 mg/dL <=11.9 [facility] 25-Hydroxy Vitamin D Total 37.1 ng/mL [facility] Comment on above: <20 ng/mL Vit D defi cient20-<30 ng/mL Vit D [id number] ng/mL Vit D sufficient>100 ng/mL Potential Toxicity Parathyroid Hormone (Intact) 36 pg/mL 15-65 [facility] Comment on above: Performed at: [employer] [facility] [address] [id number] Director: Raphael Marrero PhD, Phone: [phone] Phosphorus Level 3.2 mg/dL 2.6-4.7 [facility] Platelet mean volume Auto (B ld) [Entitic vol]on 03-06-2024 Platelet mean volume (Bld) [Entitic vol] 9.1 fL 9.5-13.5 [facility] Platelets Auto (Bld) [#/Vol] on 03-06-2024 Platelets (Bld) [#/Vol] 247 10 3/uL 150-450 [facility] RBC Auto (Bld) [#/Vol]on RBC (Bld) [#/Vol] 4.01 10 6/uL 4.20-5.40 [facility] Serum or plasma anion gap de terminationon 03-06-2024 Anion gap [Moles/Vol] 10.2 mmol/L [facility] SYMPTOMATIC COVID-19 ANTIGEN on 04-04-2023 EUA Statement SEE BELOW Normal [facility] Comment on above: Result Comment: [...] sooner. Performed By: #### C VDAGS #### [facility] [address] [place] [address] Dr. Shayne Roldan SARS-CoV-2 (COVID-19) RNA KAYLEE+probe Ql (Unsp spec) Positive Abnormal NEGATIVE [facility] Comment on above: Performed By: #### C VDAGS #### [facility] [address] [place] [address] Dr. Shayne Roldan XR LSPINE 2_3 VIEWSon [...] STEPH GRANADOS Date: 2023-03-24 12:52 Normal [facility] PTH INTACTon 02-27-2023 PTH, Intact 87 pg/mL Critically high 15-65 [facility] Comment on above: Performed By: #### P THINT #### [facility] [address] [place] [address] Dr. Shayne Roldan HEMOGRAM AND PLATELon 2022 Hematocrit (Bld) [Volume fraction] 44.4 % Normal 36.0-48.0 [facility] Comment on above: Performed By: #### H H #### [facility] [address] [place] [address] Dr. Shayne Roldan Hemoglobin (Bld) [Mass/Vol] 14.5 g/dL Normal 12.0-16.0 [facility] Comment on above: Performed By: #### H H #### [facility] [address] [place] [address] Dr. Shayne Roldan MCH (RBC) [Entitic mass] 30.3 pg Normal 26.7-34.0 [facility] Comment on above: Performed By: #### H H #### [facility] [address] [place] [address] Dr. Shayne Roldan MCHC (RBC) [Mass/Vol] 32.7 g/dL Normal 29.9-35.2 [facility] Comment on above: Performed By: #### H H #### [facility] [address] [place] [address] Dr. Shayne Roldan MCV (RBC) [Entitic vol] 92.9 fL Normal 81.0-99.0 [facility] Comment on above: Performed By: #### H H #### [facility] [address] [place] [address] Dr. Shayne Roldan PLT 367 103/ul Normal 150-450 [facility] Comment on above: Performed By: #### H H #### [facility] [address] [place] [address] Dr. Shayne Roldan RBC 4.78 106/ul Normal 4.20-5.40 [facility] Comment on above: Performed By: #### H H #### [facility] [address] [place] [address] Dr. Shayne Roldan WBC 9.9 103/ul Normal 4.0-11.0 [facility] Comment on above: Performed By: #### H H #### [facility] [address] [place] [address] Dr. Shayne Roldan MAGNESIUMon 02-25-2023 Magnesium [Mass/Vol] 1.6 mg/dL Critically low 1.8-2.4 [facility] Comment on above: Performed By: #### M G, RENAL, URIC #### [facility] [address] [address] [address] Shayne Roldan RENAL FUNCTION PANELon 02-25 Albumin [Mass/Vol] 3.4 g/dL Normal 3.4-5.0 [facility] Comment on above: Performed By: #### M G, RENAL, URIC #### [facility] [address] [address] [address] Shayne Roldan Calcium [Mass/Vol] 8.7 mg/dL Normal 8.5-10.1 [facility] Comment on above: Performed By: #### M G, RENAL, URIC #### [facility] [address] [address] [address] Shayne Roldan Chloride [Moles/Vol] 104 mmol/L Normal 98-107 [facility] Comment on above: Performed By: #### M G, RENAL, URIC #### [facility] [address] [address] [address] Shayne Roldan CO2 [Moles/Vol] 25.9 mmol/L Normal 21.0-32.0 [facility] Comment on above: Performed By: #### M G, RENAL, URIC #### [facility] [address] [address] [address] Shayne Roldan Creatinine [Mass/Vol] 1.19 mg/dL Critically high 0.55-1.02 [facility] Comment on above: Performed By: #### M G, RENAL, URIC #### [facility] [address] [address] [address] Shayne Roldan EGFR-AF GUYANESE 55 mL/min/1.73m2 Critically low >=60 [facility] Comment on above: Performed By: #### M G, RENAL, URIC #### [facility] [address] [address] [address] Shayne Roldan EGFR-NON AF GUYANESE 45 mL/min/1.73m2 Critically low >=60 [facility] Comment on above: Performed By: #### M G, RENAL, URIC #### [facility] [address] [place] [address] Dr. Shayne Roldan Glucose [Mass/Vol] 193 mg/dL Critically high 74-106 [facility] Comment on above: Performed By: #### M G, RENAL, URIC #### [facility] [address] [place] [address] Dr. Shayne Roldan Phosphate [Mass/Vol] 3.2 mg/dL Normal 2.6-4.7 [facility] Comment on above: Performed By: #### M G, RENAL, URIC #### [facility] [address] [place] [address] Dr. Shayne Roldan Potassium [Moles/Vol] 3.9 mmol/L Normal 3.5-5.1 [facility] Comment on above: Performed By: #### M G, RENAL, URIC #### [facility] [address] [place] [address] Dr. Shayne Roldan Sodium [Moles/Vol] 140 mmol/L Normal 136-145 [facility] Comment on above: Performed By: #### M G, RENAL, URIC #### [facility] [address] [place] [address] Dr. Shayne Roldan Urea nitrogen [Mass/Vol] 17.0 mg/dL Normal 7.0-18.0 [facility] Comment on above: Performed By: #### M G, RENAL, URIC #### [facility] [address] [place] [address] Dr. Shayne Roldan UA RANDOM W/MICROSCOPICon BACTERIA TRACE Abnormal NONE SEEN [facility] Comment on above: Performed By: #### M G, RENAL, URIC #### [facility] [address] [place] [address] Dr. Shayne Roldan Bilirubin Ql (U) Negative Normal NEGATIVE [facility] Comment on above: Performed By: #### M G, RENAL, URIC #### [facility] [address] [place] [address] Dr. Shayne Roldan CAST NONE SEEN Normal NONE SEEN [facility] Comment on above: Performed By: #### M G, RENAL, URIC #### [facility] [address] [address] [address] Shayne Roldan Clarity (U) CLEAR Normal CLEAR [facility] Comment on above: Performed By: #### M G, RENAL, URIC #### [facility] [address] [address] [address] Shayne Roldan Color (U) LT. YELLOW Normal YELLOW [facility] Comment on above: Performed By: #### M G, RENAL, URIC #### [facility] [address] [address] [address] Shayne Roldan Crystals LM Nom (Urine sed) NONE SEEN Normal NONE SEEN [facility] Comment on above: Performed By: #### M G, RENAL, URIC #### [facility] [address] [place] [address] Dr. Shayne Roldan Epithelial cells LM Ql (Urine sed) RARE Normal NONE SEEN /RARE [facility] Comment on above: Performed By: #### M G, RENAL, URIC #### [facility] [address] [address] [address] Shayne Roldan Glucose Ql (U) Negative Normal NEGATIVE [facility] Comment on above: Performed By: #### M G, RENAL, URIC #### [facility] [address] [place] [address] Dr. Shayne Roldan Hemoglobin Ql (U) Negative Normal NEGATIVE [facility] Comment on above: Performed By: #### M G, RENAL, URIC #### [facility] [address] [address] [address] Shayne Roldan Ketones Ql (U) Negative Normal NEGATIVE [facility] Comment on above: Performed By: #### M G, RENAL, URIC #### [facility] [address] [address] [address] Shayne Roldan LEUKOCYTES Negative Normal NEGATIVE [facility] Comment on above: Performed By: #### M G, RENAL, URIC #### [facility] [address] [address] [address] Shayne Roldan MUCOUS NONE SEEN Normal NONE SEEN [facility] Comment on above: Performed By: #### M G, RENAL, URIC #### [facility] [address] [place] [address] Dr. Shayne Roldan Nitrite Ql (U) Negative Normal NEGATIVE [facility] Comment on above: Performed By: #### M G, RENAL, URIC #### [facility] [address] [place] [address] Dr. Shayne Roldan pH (U) 5.0 [pH] Normal 5-9 [facility] Comment on above: Performed By: #### M G, RENAL, URIC #### [facility] [address] [place] [address] Dr. Shayne Roldan RBC 0-2 Normal 0-2 [facility] Comment on above: Performed By: #### M G, RENAL, URIC #### [facility] [address] [place] [address] Dr. Shayne Roldan SPEC GRAVITY 1.025 Normal 1.005-<=1.02 5 [facility] Comment on above: Performed By: #### M G, RENAL, URIC #### [facility] [address] [place] [address] Dr. Shayne Roldan UA PROTEIN Negative Normal NEGATIVE/ TRACE [facility] Comment on above: Performed By: #### M G, RENAL, URIC #### [facility] [address] [place] [address] Dr. Shayne Roldan Urobilinogen Qn (U) 0.2 {Rogelio'U}/dL Normal 0.2 - 1. 0 [facility] Comment on above: Performed By: #### M G, RENAL, URIC #### [facility] [address] [place] [address] Dr. Shayne Roldan WBC 0-2 Abnormal NONE SEEN [facility] Comment on above: Performed By: #### M G, RENAL, URIC #### [facility] [address] [place] [address] Dr. Shayne Roldan URIC ACID SERUMon 02-25-2023 Urate [Mass/Vol] 6.1 mg/dL Critically high 2.6-6.0 [facility] Comment on above: Performed By: #### M G, RENAL, URIC #### [facility] [address] [place] [address] Dr. Shayne Roldan URINE T PROTEIN CREAT RATIOo n 02-25-2023 Protein (U) [Mass/Vol] 13.0 mg/dL Critically high <=12.0 [facility] Comment on above: Performed By: #### M G, RENAL, URIC #### [facility] [address] [place] [address] Dr. Shayne Roldan UR PROT CREAT RAT 0.16 Normal [facility] Comment on above: Performed By: #### M G, RENAL, URIC #### [facility] [address] [place] [address] Dr. Shayne Roldan URINE CREAT 83.60 mg/dL Normal 20.00-300.00 [facility] Comment on above: Performed By: #### M G, RENAL, URIC #### [facility] [address] [place] [address] Dr. Shayne Roldan VITAMIN D 25 OHon 02-25-2023 VIT D 25-OH 41.6 ng/mL Normal [facility] Comment on above: Performed By: #### M G, RENAL, URIC #### [facility] [address] [place] [address] Dr. Shayne Roldan VIT D RANGES SEE BELOW Normal [facility] Comment on above: Result Comment: <20 ng/mL Vit D deficient 20 - <30 ng/mL Vit D insufficient 30 - 100 ng/mL Vit D sufficient >100 ng/mL Potential Toxicity Performed By: #### M Poncho, RENAL, URIC #### [facility] [address] [place] [address] Dr. Shayne Roldan XR CHEST 2 Von [...] by: BRITTANY GALDAMEZ Date: 2023-02-22 16:15 Normal [facility] MAMM SCREEN 3D PRATEEK CADon 12-15-2022 MAMM SCREEN 3D PRATEEK CAD Patient: DIANA CHAMPION Exam Date: 12/15/2022 : 1955 Gender:F Ordering : DR JACK HALL . Admission #: [id number] Family : Order #: [id number] CLICK HERE TO VIEW EXAM RADIOLOGY REPORT PROCEDURE: MAMMOGRAM SCREENING 3D BILATERAL CAD COMPARISON: MAMM SCREEN 3D PRATEEK CAD, 11/26/2021. INDICATIONS: Calculator Name NCI Breast Cancer Risk Assessment Tool 5 Year Breast Cancer Risk 1.20% Lifetime Breast Cancer Risk 4.40% Personal Breast Cancer No Personal Ovarian Cancer No Treatments Excision, radiation, chemotherapy Family Cancers None LOCATION: [facility] BREAST COMPOSITION: Almost entirely fatty. FINDINGS: [...] Walters MD on 12/15/2022 at 10:51 Normal [facility] XR DEXA BONE DENSITYon 12-15 XR [...] by: STEPH GRANADOS Date: 2022-12-15 09:50 Normal [facility] PAP ACOG PANEL 2: 30 to 65on 11-16-2022 . . Normal [facility] Comment on above: Performed By: #### [id number] #### [facility] [address] [place] [address] Dr. Shayne Roldan Age Gdln ACOG Testing Comment Normal [facility] Comment on above: Result Comment: <21 or >65 or no age provided Performed By: #### [id number] #### [facility] [address] [place] [address] Dr. Shayne Roldan DIAGNOSIS: Comment Normal [facility] Comment on above: Result Comment: NEGA TIVE FOR INTRAEPITHELIAL LESION OR MALIGNANCY. Performed By: #### [id number] #### [facility] [address] [place] [address] Dr. Shayne Roldan Methodology: Comment Normal [facility] Comment on above: Result Comment: This liquid based ThinPrep(R) pap test was screened with the use of an image guided system. Performed By: #### [id number] #### [facility] [address] [place] [address] Dr. Shayne Roldan Note: Comment [facility] Comment on above: Result Comment: The Pap smear is a screening test designed to aid in the detection of premalignant and malignant conditions of the uterine cervix. It is not a diagnostic procedure and should not be used as the sole means of detecting cervical cancer. Both false-positive and false-negative reports do occur. . Performed By: #### [id number] #### [facility] [address] [place] [address] Dr. Shayne Roldan Performed by: Comment Normal [facility] Comment on above: Result Comment: Onur Aguilar Foot Specialist (ASCP) Performed By: #### [id number] #### [facility] [address] [place] [address] Dr. Shayne Roldan Specimen adequacy: Comment Normal [facility] Comment on above: Result Comment: Sati sfactory for evaluation. Endocervical and/or squamous metaplastic cells (endocervical component) are present. Performed By: #### [id number] #### [facility] [address] [address] [address] Shayne Roldan RENAL FUNCTION PANELon 08-19 Albumin [Mass/Vol] 3.4 g/dL Normal 3.4-5.0 [facility] Comment on above: Performed By: #### M G, RENAL, URIC #### [facility] [address] [address] [address] Shayne Roldan Calcium [Mass/Vol] 8.4 mg/dL Critically low 8.5-10.1 [facility] Comment on above: Performed By: #### M G, RENAL, URIC #### [facility] [address] [address] [address] Shayne Roldan Chloride [Moles/Vol] 103 mmol/L Normal 98-107 [facility] Comment on above: Performed By: #### M G, RENAL, URIC #### [facility] [address] [address] [address] Shayne Roldan CO2 [Moles/Vol] 27.8 mmol/L Normal 21.0-32.0 [facility] Comment on above: Performed By: #### M G, RENAL, URIC #### [facility] [address] [address] [address] Shayne Roldan Creatinine [Mass/Vol] 1.02 mg/dL Normal 0.55-1.02 [facility] Comment on above: Performed By: #### M G, RENAL, URIC #### [facility] [address] [address] [address] Shayne Roldan EGFR-AF GUYANESE >60 Normal >=60 [facility] Comment on above: Performed By: #### M G, RENAL, URIC #### [facility] [address] [address] [address] Shayne Roldan EGFR-NON AF GUYANESE 54 mL/min/1.73m2 Critically low >=60 [facility] Comment on above: Performed By: #### M G, RENAL, URIC #### [facility] [address] [address] [address] Shayne Roldan Glucose [Mass/Vol] 110 mg/dL Critically high 74-106 [facility] Comment on above: Performed By: #### M G, RENAL, URIC #### [facility] [address] [place] [address] Dr. Shayne Roldan Phosphate [Mass/Vol] 2.3 mg/dL Critically low 2.6-4.7 [facility] Comment on above: Performed By: #### M G, RENAL, URIC #### [facility] [address] [place] [address] Dr. Shayne Roldan Potassium [Moles/Vol] 3.2 mmol/L Critically low 3.5-5.1 [facility] Comment on above: Performed By: #### M G, RENAL, URIC #### [facility] [address] [place] [address] Dr. Shayne Roldan Sodium [Moles/Vol] 138 mmol/L Normal 136-145 [facility] Comment on above: Performed By: #### M G, RENAL, URIC #### [facility] [address] [place] [address] Dr. Shayne Roldan Urea nitrogen [Mass/Vol] 14.0 mg/dL Normal 7.0-18.0 [facility] Comment on above: Performed By: #### M G, RENAL, URIC #### [facility] [address] [place] [address] Dr. Shayne Roldan PTH INTACTon 08-06-2022 PTH, Intact 40 pg/mL Normal 15-65 [facility] Comment on above: Performed By: #### M G, RENAL, URIC #### [facility] [address] [place] [address] Dr. Shayne Roldan HEMOGRAM AND PLATELon 2021 Hematocrit (Bld) [Volume fraction] 39.8 % Normal 36.0-48.0 [facility] Comment on above: Performed By: #### M G, RENAL, URIC #### [facility] [address] [place] [address] Dr. Shayne Roldan Hemoglobin (Bld) [Mass/Vol] 13.4 g/dL Normal 12.0-16.0 [facility] Comment on above: Performed By: #### M G, RENAL, URIC #### [facility] [address] [place] [address] Dr. Shayen Roldan MCH (RBC) [Entitic mass] 30.5 pg Normal 26.7-34.0 [facility] Comment on above: Performed By: #### M G, RENAL, URIC #### [facility] [address] [place] [address] Dr. Shayne Roldan MCHC (RBC) [Mass/Vol] 33.7 g/dL Normal 29.9-35.2 [facility] Comment on above: Performed By: #### M G, RENAL, URIC #### [facility] [address] [place] [address] Dr. Shayne Roldan MCV (RBC) [Entitic vol] 90.5 fL Normal 81.0-99.0 [facility] Comment on above: Performed By: #### M G, RENAL, URIC #### [facility] [address] [place] [address] Dr. Shayne Roldan PLT 299 103/ul Normal 150-450 [facility] Comment on above: Performed By: #### M G, RENAL, URIC #### [facility] [address] [place] [address] Dr. Shayne Roldan RBC 4.40 106/ul Normal 4.20-5.40 [facility] Comment on above: Performed By: #### M G, RENAL, URIC #### [facility] [address] [place] [address] Dr. Shayne Roldan WBC 8.8 103/ul Normal 4.0-11.0 [facility] Comment on above: Performed By: #### M G, RENAL, URIC #### [facility] Laboratory [address] [place] [address] Dr. Shayne Roldan MAGNESIUMon 08-05-2022 Magnesium [Mass/Vol] 1.5 mg/dL Critically low 1.8-2.4 [facility] Comment on above: Performed By: #### M G, RENAL, URIC #### [facility] [address] [address] [address] Shayne Roldan RENAL FUNCTION PANELon 08-05 Albumin [Mass/Vol] 3.5 g/dL Normal 3.4-5.0 [facility] Comment on above: Performed By: #### M G, RENAL, URIC #### [facility] [address] [address] [address] Shayne Roldan Calcium [Mass/Vol] 8.4 mg/dL Critically low 8.5-10.1 [facility] Comment on above: Performed By: #### M G, RENAL, URIC #### [facility] [address] [place] [address] Dr. Shayne Roldan Chloride [Moles/Vol] 101 mmol/L Normal 98-107 [facility] Comment on above: Performed By: #### M G, RENAL, URIC #### [facility] [address] [place] [address] Dr. Shayne Roldan CO2 [Moles/Vol] 29.5 mmol/L Normal 21.0-32.0 [facility] Comment on above: Performed By: #### M G, RENAL, URIC #### [facility] [address] [place] [address] Dr. Shayne Roldan Creatinine [Mass/Vol] 1.04 mg/dL Critically high 0.55-1.02 [facility] Comment on above: Performed By: #### M G, RENAL, URIC #### [facility] [address] [place] [address] Dr. Shayne Roldan EGFR-AF GUYANESE >60 Normal >=60 [facility] Comment on above: Performed By: #### M G, RENAL, URIC #### [facility] [address] [place] [address] Dr. Shayne Roldan EGFR-NON AF GUYANESE 53 mL/min/1.73m2 Critically low >=60 [facility] Comment on above: Performed By: #### M G, RENAL, URIC #### [facility] [address] [address] [address] Shayne Roldan Glucose [Mass/Vol] 92 mg/dL Normal 74-106 [facility] Comment on above: Performed By: #### M G, RENAL, URIC #### [facility] [address] [address] [address] Shayne Roldan Phosphate [Mass/Vol] 2.4 mg/dL Critically low 2.6-4.7 [facility] Comment on above: Performed By: #### M G, RENAL, URIC #### [facility] [address] [address] [address] Shayne Roldan Potassium [Moles/Vol] 2.8 mmol/L Critically low 3.5-5.1 [facility] Comment on above: Performed By: #### M G, RENAL, URIC #### [facility] [address] [address] [address] Shayne Roldan Sodium [Moles/Vol] 137 mmol/L Normal 136-145 [facility] Comment on above: Performed By: #### M G, RENAL, URIC #### [facility] [address] [address] [address] Shayne Roldan Urea nitrogen [Mass/Vol] 10.0 mg/dL Normal 7.0-18.0 [facility] Comment on above: Performed By: #### M G, RENAL, URIC #### [facility] [address] [address] [address] Shayne Roldan UA RANDOM W/MICROSCOPICon BACTERIA SMALL Abnormal NONE SEEN [facility] Comment on above: Performed By: #### U AMIC #### [facility] [address] [address] [address] Shayne Roldan Bilirubin Ql (U) Negative Normal NEGATIVE [facility] Comment on above: Performed By: #### U AMIC #### [facility] [address] [address] [address] Shayne Roldan CAST NONE SEEN Normal NONE SEEN [facility] Comment on above: Performed By: #### U AMIC #### [facility] [address] [address] [address] Shayne Roldan Clarity (U) CLEAR Normal CLEAR [facility] Comment on above: Performed By: #### U AMIC #### [facility] [address] [address] [address] Shayne Roldan Color (U) LT. YELLOW Normal YELLOW [facility] Comment on above: Performed By: #### U AMIC #### [facility] [address] [address] [address] Shayne Roldan Crystals LM Nom (Urine sed) NONE SEEN Normal NONE SEEN [facility] Comment on above: Performed By: #### U AMIC #### [facility] [address] [address] [address] Shayne Roldan Epithelial cells LM Ql (Urine sed) FEW Abnormal NONE SEEN /RARE [facility] Comment on above: Performed By: #### U AMIC #### [facility] [address] [place] [address] Dr. Shayne Roldan Glucose Ql (U) Negative Normal NEGATIVE [facility] Comment on above: Performed By: #### U AMIC #### [facility] [address] [address] [address] Shayne Roldan Hemoglobin Ql (U) Negative Normal NEGATIVE [facility] Comment on above: Performed By: #### U AMIC #### [facility] [address] [place] [address] Dr. Shayne Roldan Ketones Ql (U) Negative Normal NEGATIVE [facility] Comment on above: Performed By: #### U AMIC #### [facility] [address] [place] [address] Dr. Shayne Roldan LEUKOCYTES TRACE Abnormal NEGATIVE [facility] Comment on above: Performed By: #### U AMIC #### [facility] [address] [address] [address] Shayne Roldan MUCOUS NONE SEEN Normal NONE SEEN [facility] Comment on above: Performed By: #### U AMIC #### [facility] [address] [address] [address] Shayne Roldan Nitrite Ql (U) Negative Normal NEGATIVE [facility] Comment on above: Performed By: #### U AMIC #### [facility] [address] [address] [address] Shayne Roldan pH (U) 6.0 [pH] Normal 5-9 [facility] Comment on above: Performed By: #### U AMIC #### [facility] [address] [place] [address] Dr. Shayne Roldan RBC NONE SEEN Abnormal 0-2 [facility] Comment on above: Performed By: #### U AMIC #### [facility] [address] [place] [address] Dr. Shayne Roldan SPEC GRAVITY <=1.005 Abnormal 1.005-<=1.02 5 [facility] Comment on above: Performed By: #### U AMIC #### [facility] [address] [place] [address] Dr. Shayne Roldan UA PROTEIN Negative Normal NEGATIVE/ TRACE [facility] Comment on above: Performed By: #### U AMIC #### [facility] [address] [place] [address] Dr. Shayne Roldan Urobilinogen Qn (U) 0.2 {Roeglio'U}/dL Normal 0.2 - 1. 0 [facility] Comment on above: Performed By: #### U AMIC #### [facility] [address] [place] [address] Dr. Shayne Roldan WBC 5-10 Abnormal NONE SEEN [facility] Comment on above: Performed By: #### U AMIC #### [facility] [address] [place] [address] Dr. Shayne Roldan URIC ACID SERUMon 08-05-2022 Urate [Mass/Vol] 6.5 mg/dL Critically high 2.6-6.0 [facility] Comment on above: Performed By: #### M G, RENAL, URIC #### [facility] [address] [place] [address] Dr. Shayne Roldan URINE T PROTEIN CREAT RATIOo n 08-05-2022 Protein (U) [Mass/Vol] 4.8 mg/dL Normal <=12.0 [facility] Comment on above: Performed By: #### U RTPCR #### [facility] [address] [address] [address] Shayne Roldan UR PROT CREAT RAT 0.09 Normal [facility] Comment on above: Performed By: #### U RTPCR #### [facility] [address] [address] [address] Shayne Roldan URINE CREAT 52.65 mg/dL Normal 20.00-300.00 [facility] Comment on above: Performed By: #### U RTPCR #### [facility] [address] [address] [address] Shayne Roldan VITAMIN D 25 OHon 08-05-2022 VIT D 25-OH 38.9 ng/mL Normal [facility] Comment on above: Performed By: #### M G, RENAL, URIC #### [facility] [address] [place] [address] Dr. Shayne Roldan VIT D RANGES SEE BELOW Normal [facility] Comment on above: Result Comment: <20 ng/mL Vit D deficient 20 - <30 ng/mL Vit D insufficient 30 - 100 ng/mL Vit D sufficient >100 ng/mL Potential Toxicity Performed By: #### M G, RENAL, URIC #### [facility] [address] [place] [address] Dr. Shayne Roldan IMMUNOGLOBULINS IGA/IGM/IGG/ IGE QUANTITAon 07-12-2022 Immunoglobulin A, Qn, Serum 295 mg/dL Normal 87-352 [facility] Comment on above: Result Comment: Perf ormed at: CB Performed By: #### M G, RENAL, URIC #### [facility] [address] [place] [address] Dr. Shayne Roldan Immunoglobulin E, Total 32 IU/mL Normal 6-495 [facility] Comment on above: Result Comment: Perf ormed at: BN Performed By: #### M G, RENAL, URIC #### [facility] [address] [place] [address] Dr. Shayne Roldan Immunoglobulin G, Qn, Serum 729 mg/dL Normal 586-1602 [facility] Comment on above: Result Comment: Perf ormed at: CB Performed By: #### M G, RENAL, URIC #### [facility] [address] [place] [address] Dr. Shayne Roldan Immunoglobulin M, Qn, Serum 75 mg/dL Normal 26-217 [facility] Comment on above: Result Comment: Perf ormed at: CB Performed By: #### M G, RENAL, URIC #### [facility] [address] [place] [address] Dr. Shayne Roldan CBC AUTO DIFFon 07-05-2022 BASO # 0.1 103/ul Normal 0.0-0.1 [facility] Comment on above: Performed By: #### M G, RENAL, URIC #### [facility] [address] [place] [address] Dr. Shayne Roldan Basophils/100 WBC (Bld) 0.7 % Normal 0.2-2.0 [facility] Comment on above: Performed By: #### M G, RENAL, URIC #### [facility] [address] [place] [address] Dr. Shayne Roldan EO # 0.4 103/ul Normal 0.0-0.7 [facility] Comment on above: Performed By: #### M G, RENAL, URIC #### [facility] [address] [place] [address] Dr. Shayne Roldan Eosinophils/100 WBC (Bld) 4.4 % Normal 0.9-7.0 [facility] Comment on above: Performed By: #### M G, RENAL, URIC #### [facility] [address] [place] [address] Dr. Shayne Roldan Erythrocyte distribution width (RBC) [Ratio] 12.6 % Normal 11.0-15.0 [facility] Comment on above: Performed By: #### M G, RENAL, URIC #### [facility] [address] [place] [address] Dr. Shayne Roldan Hematocrit (Bld) [Volume fraction] 40.2 % Normal 36.0-48.0 [facility] Comment on above: Performed By: #### M G, RENAL, URIC #### [facility] [address] [address] [address] Shayne Roldan Hemoglobin (Bld) [Mass/Vol] 13.6 g/dL Normal 12.0-16.0 [facility] Comment on above: Performed By: #### M G, RENAL, URIC #### [facility] [address] [address] [address] Shayne Roldan IG # 0.07 10e3/ul Critically high 0.00-0.03 [facility] Comment on above: Performed By: #### M G, RENAL, URIC #### [facility] [address] [address] [address] Shayne Roldan IG % 0.8 % Critically high 0.0-0.5 [facility] Comment on above: Performed By: #### M G, RENAL, URIC #### [facility] [address] [place] [address] Dr. Shayne Roldan LYMPH # 2.3 103/ul Normal 1.2-3.8 [facility] Comment on above: Performed By: #### M G, RENAL, URIC #### [facility] [address] [address] [address] Shayne Roldan Lymphocytes/100 WBC (Bld) 24.7 % Normal 20.5-60.0 [facility] Comment on above: Performed By: #### M G, RENAL, URIC #### [facility] [address] [address] [address] Shayne Roldan MANUAL DIFF REQ NO Normal [facility] Comment on above: Performed By: #### M G, RENAL, URIC #### [facility] [address] [address] [address] Shayne Roldan MCH (RBC) [Entitic mass] 30.7 pg Normal 26.7-34.0 [facility] Comment on above: Performed By: #### M G, RENAL, URIC #### [facility] [address] [address] [address] Shayne Roldan MCHC (RBC) [Mass/Vol] 33.8 g/dL Normal 29.9-35.2 [facility] Comment on above: Performed By: #### M G, RENAL, URIC #### [facility] [address] [place] [address] Dr. Shayne Roldan MCV (RBC) [Entitic vol] 90.7 fL Normal 81.0-99.0 [facility] Comment on above: Performed By: #### M G, RENAL, URIC #### [facility] [address] [place] [address] Dr. Shayne Roldan MONO # 0.7 103/ul Normal 0.3-0.8 [facility] Comment on above: Performed By: #### M G, RENAL, URIC #### [facility] [address] [place] [address] Dr. Shayne Roldan Monocytes/100 WBC (Bld) 7.7 % Normal 1.7-12.0 [facility] Comment on above: Performed By: #### M G, RENAL, URIC #### [facility] [address] [place] [address] Dr. Shayne Roldan NEUT # 5.7 103/ul Normal 1.4-6.5 [facility] Comment on above: Performed By: #### M G, RENAL, URIC #### [facility] [address] [place] [address] Dr. Shayne Roldan Neutrophils/100 WBC (Bld) 61.7 % Normal 43.0-75.0 [facility] Comment on above: Performed By: #### M G, RENAL, URIC #### [facility] [address] [place] [address] Dr. Shayne Roldan Platelet mean volume (Bld) [Entitic vol] 8.8 fL Critically low 9.5-13.5 [facility] Comment on above: Performed By: #### M G, RENAL, URIC #### [facility] [address] [place] [address] Dr. Shayne Roldan PLT 279 103/ul Normal 150-450 [facility] Comment on above: Performed By: #### M G, RENAL, URIC #### [facility] [address] [place] [address] Dr. Shayne Roldan RBC 4.43 106/ul Normal 4.20-5.40 [facility] Comment on above: Performed By: #### M G, RENAL, URIC #### [facility] [address] [address] [address] Shayne Roldan WBC 9.1 103/ul Normal 4.0-11.0 [facility] Comment on above: Performed By: #### M G, RENAL, URIC #### [facility] [address] [address] [address] Shayne Roldan Covid-19 PCR (CVDTB)on SARS-CoV-2 (COVID-19) RNA KAYLEE+probe Ql (Unsp spec) Not detected Normal NOT DETECTED [facility] Comment on above: Result Comment: This test is not yet approved or cleared by the [place] FDA. When there are no FDA-approved or cleared tests available, and other criteria are met, FDA can make tests available under an emergency access mechanism called an Emergency Use Authorization (EUA). The EUA for this test is supported by the [place] Clerk of Health and Human Service's (HHS's) declaration [...] By: #### M G, RENAL, URIC #### [facility] [address] [address] [address] Shayne Roldan XR CHEST 2 Von [...] NARDA LONDONO Date: 2022-06-08 19:58 Normal [facility] Covid-19 PCR (CVDTB)on SARS-CoV-2 (COVID-19) RNA KAYLEE+probe Ql (Unsp spec) Not detected Normal NOT DETECTED [facility] Comment on above: Result Comment: This test is not yet approved or cleared by the [place] FDA. When there are no FDA-approved or cleared tests available, and other criteria are met, FDA can make tests available under an emergency access mechanism called an Emergency Use Authorization (EUA). The EUA for this test is supported by the [place] of Health and Human Service's (HHS's) declaration [...] consistent with SARS-CoV-2. Performed By: #### [facility] #### [facility] [address] [place] [address] Dr. Shayne Roldan DEXA AXIAL 03-01-2022 DEXA AXIAL [facility] Department of Radiology [address] [place] [phone] == Patient Name: DIANA CHAMPION : [...] characteristics. Electronically signed: Luzma Marks. Transcribed by: [email or web address], User Resident: Electronically Signed by: LUZMA MARKS @ 03/02/2022 01:07 PM Normal [facility]IS 2 S [facility] Department of Radiology [address] [place] [phone] == Patient Name: DIANA CHAMPION : 1955 Sex: F Age: Race: White Pt. Location: Patient Status: D Ordered Date: 02/24/2022 1:25:00 PM Completed Date: 02/24/2022 01:44 PM Requesting Provider: CINDA ANTONIO Attending Provider: Report Copy To: Signs & Symptoms: M43.10 Spondylolisthesis, site unspecified I10 History: Comments: Views (X-RAY, SCOLIOSIS): PA, Lateral evaluate Exam: SCOLIOSIS 2 [facility] == Scoliosis. Worsening pain. Frontal and lateral thoracolumbar spine IMPRESSION: 1. Diffuse disc disease and facet arthritis. Right convex mid lumbar curvature measuring 16 degrees. Interbody fusion hardware lower lumbar spine. Electronically signed: Hugo Lynn. Transcribed by: [email or web address], User Resident: Electronically Signed by: HUGO LYNN @ 02/26/2022 11:07 AM Normal [facility] Comment on above: Order Comment: Views (X-RAY, SCOLIOSIS): PA, Lateral evaluate CT LUMBAR SPINE W CONTRASTon 01-24-2022 CT LUMBAR SPINE W CONTRAST [facility] Department of Radiology [address] [place] [phone] == Patient Name: DIANA CHAMPION : 1955 Sex: F Age: Race: White Pt. Location: Patient Status: D Ordered Date: 01/09/2022 9:00:00 AM Completed Date: 01/24/2022 03:26 PM Requesting Provider: JOO LINN Attending Provider: JOO LINN Report Copy To: UNKNOWN, PHYSICIAN Signs & Symptoms: M54.16 Radiculopathy, lumbar region I10 History: Kendrick Comments: , CT MYELOGRAM>PAPER WORK IN CHART [...] L1-2. Electronically signed: Gaurang Hess. Transcribed by: [email or web address], User Resident: Electronically Signed by: GAURANG HESS @ 01/26/2022 08:58 AM Normal [facility] Comment on above: Order Comment: , CT MYELOGRAM>PAPER WORK IN CHART LUMBAR MYELOGRAMon 2 LUMBAR MYELOGRAM [facility] Department of Radiology [address] [place] [phone] == Patient Name: DIANA CHAMPION : 1955 Sex: F Age: Race: White Pt. Location: Patient Status: O Ordered Date: 01/09/2022 9:00:00 AM Completed Date: 01/24/2022 02:37 PM Requesting Provider: JOO LINN Attending Provider: JOO LINN Report Copy To: UNKNOWN, PHYSICIAN Signs & Symptoms: M54.16 Radiculopathy, lumbar region I10 History: Jessica Is patient on thinners? 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 Consent was obtained. Timeout: [place] protocol timeout verification performed. PROCEDURE: Estimated blood [...] report. Electronically signed: Greg Mcmahan. Transcribed by: [email or web address], User Resident: DEBBIE JI Electronically Signed by: GREG MCMAHAN @ 01/24/2022 04:07 PM I personally read this/these film(s) with this resident Normal [facility] Comment on above: Order Comment: , CT MYELOGRAM> PAPER WORK SCANNED IN CHART , CT MYELOGRAM> PAPER WORK SCANNED IN CHART , , , Ordering Provider - JOO LINN MD , HIP LEFT 1 OR 2 VWS WITH PEL VISon 01-06-2022 HIP LEFT 1 OR 2 VWS WITH PELVIS [facility] Department of Radiology [address] [place] [phone] == Patient Name: DIANA CHAMPION : 1955 Sex: F Age: Race: White Pt. Location: Patient Status: D Ordered Date: 12/21/2021 10:45:00 AM Completed Date: 01/06/2022 01:24 PM Requesting Provider: JOO LINN Attending Provider: JOO ILNN Report Copy To: Signs & Symptoms: Z96.642 [...] hardware. Electronically signed: Joe Matthew. Transcribed by: [email or web address], User Resident: Electronically Signed by: JOE MATTHEW @ 01/09/2022 04:45 PM Normal [facility] Comment on above: Order Comment: Evalu ate Vital Signs Date Time Vital Sign Value Performing Clinician Facility 05-19-2025 08:43-0400 Body mass index (BMI) [Ratio] 40.58 kg/m2 Kaylene Ferdinandholz [employer] Work Phone: [facility] 05-19-2025 08:43-0400 Body temperature 98.49 [degF] Kaylene Aichholz [employer] INSPECTOR Work Phone: [facility] 05-19-2025 08:43-0400 Body weight 107.23 kg Kaylene Aichholz [employer] INSPECTOR Work Phone: [facility] 05-19-2025 08:43-0400 Diastolic blood pressure 76 mm[Hg] Kaylene Aichholz [employer] INSPECTOR Work Phone: [facility] 05-19-2025 08:43-0400 Heart rate 74 /min Kaylene Brianhholz [employer] VE[employer]LE INSPECTOR Work Phone: [facility] 05-19-2025 08:43-0400 Respiratory rate 22 /min Kaylene Aichholz [employer] VE[employer] INSPECTOR Work Phone: [facility] 05-19-2025 08:43-0400 SaO2% (BldA) [Mass fraction] 94 % Kaylene Brianhholz [employer] INSPECTOR Work Phone: [facility] 05-19-2025 08:43-0400 Systolic blood pressure 118 mm[Hg] Kaylene Brianhholz [employer]LE INSPECTOR Work Phone: [facility] 04-09-2025 11:03-0400 Body mass index (BMI) [Ratio] 41.2 kg/m2 Kaylene Brianhholz [employer] INSPECTOR Work Phone: [facility] 04-09-2025 11:03-0400 Body temperature 98.2 [degF] Kaylene Aichholz [employer] VE[employer] INSPECTOR Work Phone: [facility] 04-09-2025 11:03-0400 Body weight 108.86 kg Kaylene Aichholz [employer] VE[employer] INSPECTOR Work Phone: [facility] 04-09-2025 11:03-0400 Diastolic blood pressure 70 mm[Hg] Kaylene Aichholz [employer] INSPECTOR Work Phone: [facility] 04-09-2025 11:03-0400 Heart rate 73 /min Kaylene Aichholz [employer] INSPECTOR Work Phone: [facility] 04-09-2025 11:03-0400 Respiratory rate 22 /min Kaylene Aichholz [employer] INSPECTOR Work Phone: [facility] 04-09-2025 11:03-0400 SaO2% (BldA) [Mass fraction] 93 % Kaylene Aichholz [employer] INSPECTOR Work Phone: [facility] 04-09-2025 11:03-0400 Systolic blood pressure 122 mm[Hg] Kaylene Aichholz [employer] VE[employer] INSPECTOR Work Phone: [facility] 03-24-2025 09:57-0400 Body temperature 98.06 [degF] MAG JOSE ALEJANDRO [facility] 03-24-2025 09:57-0400 Diastolic blood pressure 76 mm[Hg] MAG JOSE ALEJANDRO [facility] 03-24-2025 09:57-0400 Respiratory rate 16 /min MAG JOSE ALEJANDRO [facility] 03-24-2025 09:57-0400 Systolic blood pressure 128 mm[Hg] MAG JOSE ALEJANDRO [facility] 02-17-2025 08:31-0400 Body temperature 98.8 [degF] Kaylene Aichholz [employer] INSPECTOR Work Phone: [facility] 02-17-2025 08:31-0400 Diastolic blood pressure 72 mm[Hg] Kaylene Aichholz [employer] INSPECTOR Work Phone: [facility] 02-17-2025 08:31-0400 Heart rate 85 /min Kaylene Aichholz [employer] INSPECTOR Work Phone: [facility] 02-17-2025 08:31-0400 Respiratory rate 24 /min Kaylene Aichholz [employer] INSPECTOR Work Phone: [facility] 02-17-2025 08:31-0400 SaO2% (BldA) [Mass fraction] 90 % Kaylene Ferdinandholz [employer] INSPECTOR Work Phone: [facility] 02-17-2025 08:31-0400 Systolic blood pressure 118 mm[Hg] Kaylene Aichholz [employer]LE INSPECTOR Work Phone: [place] [facility] 01-16-2025 09:50-0400 Body temperature 99 [degF] Kaylene Brianhholz TRANSIT VEHICLE INSPECTOR Work Phone: [facility] 01-16-2025 09:50-0400 Diastolic blood pressure 80 mm[Hg] Kaylene Aichholz TRANSIT VEHICLE INSPECTOR Work Phone: [facility] 01-16-2025 09:50-0400 Heart rate 68 /min Kaylene Brianhholz TRANSIT VEHICLE INSPECTOR Work Phone: [facility] 01-16-2025 09:50-0400 Respiratory rate 26 /min Kaylene Ferdinandholz TRANSIT VEHICLE INSPECTOR Work Phone: [facility] 01-16-2025 09:50-0400 SaO2% (BldA) [Mass fraction] 93 % Kaylene Brianhholz TRANSIT VEHICLE INSPECTOR Work Phone: [facility] 01-16-2025 09:50-0400 Systolic blood pressure 108 mm[Hg] Kaylene Brianhholz TRANSIT VEHICLE INSPECTOR Work Phone: [facility] 01-02-2025 14:54-0500 Body mass index (BMI) [Ratio] 40.2 kg/m2 Kaylene Brianhholz TRANSIT VEHICLE INSPECTOR Work Phone: [facility] 01-02-2025 14:54-0500 Body temperature 99.61 [degF] Kaylene Aichholz TRANSIT VEHICLE INSPECTOR Work Phone: [facility] 01-02-2025 14:54-0500 Body weight 106.23 kg Kaylene Aichholz TRANSIT VEHICLE INSPECTOR Work Phone: [facility] 01-02-2025 14:54-0500 Diastolic blood pressure 84 mm[Hg] Kaylene Weaverz TRANSIT VEHICLE INSPECTOR Work Phone: [facility] 01-02-2025 14:54-0500 Heart rate 78 /min Kaylene Weaverz TRANSIT VEHICLE INSPECTOR Work Phone: [facility] 01-02-2025 14:54-0500 Respiratory rate 26 /min Kaylene López TRANSIT VEHICLE INSPECTOR Work Phone: [facility] 01-02-2025 14:54-0500 SaO2% (BldA) [Mass fraction] 91 % Kaylene Weaverz TRANSIT VEHICLE INSPECTOR Work Phone: [facility] 01-02-2025 14:54-0500 Systolic blood pressure 120 mm[Hg] Kaylene Weaverz TRANSIT VEHICLE INSPECTOR Work Phone: [facility] 11-28-2024 13:08-0500 Body height 162.6 cm Aida Reese TRANSIT VEHICLE INSPECTOR Work Phone: [facility] 11-28-2024 13:08-0500 Body mass index (BMI) [Ratio] 40.51 kg/m2 Aida Reese TRANSIT VEHICLE INSPECTOR Work Phone: [facility] 11-28-2024 13:08-0500 Body temperature 97.9 [degF] Aida Reese TRANSIT VEHICLE INSPECTOR Work Phone: [facility] 11-28-2024 13:08-0500 Body weight 107.05 kg Aida Reese TRANSIT VEHICLE INSPECTOR Work Phone: [facility] 11-28-2024 13:08-0500 Diastolic blood pressure 82 mm[Hg] Aida Reese TRANSIT VEHICLE INSPECTOR Work Phone: [facility] 11-28-2024 13:08-0500 Heart rate 79 /min Aida Reese TRANSIT VEHICLE INSPECTOR Work Phone: [facility] 11-28-2024 13:08-0500 Respiratory rate 20 /min Aida Reese TRANSIT VEHICLE INSPECTOR Work Phone: [facility] 11-28-2024 13:08-0500 SaO2% (BldA) [Mass fraction] 96 % Aida Reese TRANSIT VEHICLE INSPECTOR Work Phone: [facility] 11-28-2024 13:08-0500 Systolic blood pressure 148 mm[Hg] Aida Reese TRANSIT VEHICLE INSPECTOR Work Phone: [facility] 11-12-2024 10:24-0500 Body mass index (BMI) [Ratio] 40.75 kg/m2 Aida Reese TRANSIT VEHICLE INSPECTOR Work Phone: [facility] 11-12-2024 10:24-0500 Body temperature 98.71 [degF] Aida Reese TRANSIT VEHICLE INSPECTOR Work Phone: [facility] 11-12-2024 10:24-0500 Body weight 107.68 kg Aida Reese TRANSIT VEHICLE INSPECTOR Work Phone: [facility] 11-12-2024 10:24-0500 Diastolic blood pressure 78 mm[Hg] Aida Reese TRANSIT VEHICLE INSPECTOR Work Phone: [facility] 11-12-2024 10:24-0500 Heart rate 68 /min Aida Reese TRANSIT VEHICLE INSPECTOR Work Phone: [facility] 11-12-2024 10:24-0500 Respiratory rate 18 /min Aida Reese TRANSIT VEHICLE INSPECTOR Work Phone: [facility] 11-12-2024 10:24-0500 SaO2% (BldA) [Mass fraction] 92 % Aida Reese TRANSIT VEHICLE INSPECTOR Work Phone: [facility] 11-12-2024 10:24-0500 Systolic blood pressure 134 mm[Hg] Aida Reese TRANSIT VEHICLE INSPECTOR Work Phone: [facility] 10-15-2024 14:29-0500 Blood Pressure Location MAG BLOUNT [facility] 10-15-2024 14:29-0500 Diastolic blood pressure 75 mm[Hg] MAG GOMEZRY [facility] 10-15-2024 14:29-0500 Heart rate 64 /min MAG JOSE ALEJANDRO [facility] 10-15-2024 14:29-0500 Respiratory rate 20 /min MAG JOSE ALEJANDRO [facility] 10-15-2024 14:29-0500 Systolic blood pressure 147 mm[Hg] MAG JOSE ALEJANDRO [facility] 10-07-2024 14:22-0500 Body height 162.6 cm Aida Reese TRANSIT VEHICLE INSPECTOR Work Phone: [facility] 10-07-2024 14:22-0500 Body mass index (BMI) [Ratio] 40.85 kg/m2 Aida Reese TRANSIT VEHICLE INSPECTOR Work Phone: [facility] 10-07-2024 14:22-0500 Body weight 107.96 kg Aida Reese TRANSIT VEHICLE INSPECTOR Work Phone: [facility] 10-07-2024 14:22-0500 Diastolic blood pressure 72 mm[Hg] Aida Reese TRANSIT VEHICLE INSPECTOR Work Phone: [facility] 10-07-2024 14:22-0500 Heart rate 64 /min Aida Reese TRANSIT VEHICLE INSPECTOR Work Phone: [facility] 10-07-2024 14:22-0500 Respiratory rate 18 /min Aida Reese TRANSIT VEHICLE INSPECTOR Work Phone: [facility] 10-07-2024 14:22-0500 SaO2% (BldA) [Mass fraction] 93 % Aida Reese TRANSIT VEHICLE INSPECTOR Work Phone: [facility] 10-07-2024 14:22-0500 Systolic blood pressure 110 mm[Hg] Aida Reese TRANSIT VEHICLE INSPECTOR Work Phone: [facility] 09-05-2024 12:53-0400 Body height 162.56 cm Aida Reese TRANSIT VEHICLE INSPECTOR-C Work Phone: [facility] 09-05-2024 12:53-0400 Body weight 104.32 kg Aida Reese TRANSIT VEHICLE INSPECTOR-C Work Phone: [facility] 08-19-2024 11:41-0400 Body mass index (BMI) [Ratio] 40.34 kg/m2 Aida Reese TRANSIT VEHICLE INSPECTOR Work Phone: [facility] 08-19-2024 11:41-0400 Body temperature 97.59 [degF] Aida Reese TRANSIT VEHICLE INSPECTOR Work Phone: [facility] 08-19-2024 11:41-0400 Body weight 106.59 kg Aida Reese TRANSIT VEHICLE INSPECTOR Work Phone: [facility] 08-19-2024 11:41-0400 Diastolic blood pressure 76 mm[Hg] Aida Reese TRANSIT VEHICLE INSPECTOR Work Phone: [facility] 08-19-2024 11:41-0400 Heart rate 57 /min Aida Reese TRANSIT VEHICLE INSPECTOR Work Phone: [facility] 08-19-2024 11:41-0400 SaO2% (BldA) [Mass fraction] 90 % Aida Reese TRANSIT VEHICLE INSPECTOR Work Phone: [facility] 08-19-2024 11:41-0400 Systolic blood pressure 138 mm[Hg] Aida Reese TRANSIT VEHICLE INSPECTOR Work Phone: [facility] 07-11-2024 08:25-0400 Body height 162.6 cm Aida Reese TRANSIT VEHICLE INSPECTOR Work Phone: [facility] 07-11-2024 08:25-0400 Body mass index (BMI) [Ratio] 41.02 kg/m2 Aida Reese TRANSIT VEHICLE INSPECTOR Work Phone: [facility] 07-11-2024 08:25-0400 Body temperature 98.1 [degF] Aida Reese TRANSIT VEHICLE INSPECTOR Work Phone: [facility] 07-11-2024 08:25-0400 Body weight 108.41 kg Aida Reese TRANSIT VEHICLE INSPECTOR Work Phone: [facility] 07-11-2024 08:25-0400 Diastolic blood pressure 74 mm[Hg] Aida Reese TRANSIT VEHICLE INSPECTOR Work Phone: [facility] 07-11-2024 08:25-0400 Heart rate 83 /min Aida Reese TRANSIT VEHICLE INSPECTOR Work Phone: [facility] Comment on above: 94% O2 07-11-2024 08:25-0400 Systolic blood pressure 130 mm[Hg] Aida Reese TRANSIT VEHICLE INSPECTOR Work Phone: [facility] 03-14-2024 10:30-0400 Body height 165.1 cm Steph Galindohon Work Phone: [facility] 03-14-2024 10:30-0400 Body mass index (BMI) [Ratio] 39 kg/m2 Steph Roshon Work Phone: [facility] 03-14-2024 10:30-0400 Body temperature 97.4 [degF] Steph Roshon Work Phone: [facility] 03-14-2024 10:30-0400 Body weight 106.36 kg Steph Roshon Work Phone: [facility] 03-14-2024 10:30-0400 Diastolic blood pressure 80 mm[Hg] Steph Roshon Work Phone: [facility] 03-14-2024 10:30-0400 Heart rate 77 /min Steph Roshon Work Phone: [facility] 03-14-2024 10:30-0400 Inhaled oxygen flow rate 3 L/min Steph Collier Work Phone: [facility] 03-14-2024 10:30-0400 Respiratory rate 20 /min Steph Collier Work Phone: [facility] 03-14-2024 10:30-0400 SaO2% (BldA) [Mass fraction] 92 % Steph Collier Work Phone: [facility] 03-14-2024 10:30-0400 Systolic blood pressure 120 mm[Hg] Steph Collier Work Phone: [facility] 08-17-2023 09:20-0400 Body height 165.1 cm Herberth Joana Other [facility] Other 08-17-2023 09:20-0400 Body mass index (BMI) [Ratio] 38.1 kg/m2 Herberth Joana Other [facility] Other 08-17-2023 09:20-0400 Body temperature 98.8 [degF] Herberth Joana Other [facility] Other 08-17-2023 09:20-0400 Body weight 103.87 kg Herberth Joana Other [facility] Other 08-17-2023 09:20-0400 Diastolic blood pressure 85 mm[Hg] Herberth Joana Other [facility] Other 08-17-2023 09:20-0400 Respiratory rate 18 /min Herberth Joana Other [facility] Other 08-17-2023 09:20-0400 SaO2% (BldA) [Mass fraction] 94 % Herberth Joana Other [facility] Other 08-17-2023 09:20-0400 Systolic blood pressure 151 mm[Hg] Herberth Joana Other [facility] Other 03-02-2023 10:00-0400 Body height 165.1 cm Herberth Joana Other [facility] Other 03-02-2023 10:00-0400 Body mass index (BMI) [Ratio] 37.29 kg/m2 Herberth Joana Other [facility] Other 03-02-2023 10:00-0400 Body temperature 98.9 [degF] Herbreth Joana Other [facility] Other 03-02-2023 10:00-0400 Body weight 101.65 kg Herberth Joana Other [facility] Other 03-02-2023 10:00-0400 Diastolic blood pressure 76 mm[Hg] Herberth Joana Other [facility] Other 03-02-2023 10:00-0400 Respiratory rate 20 /min Herberth Joana Other [facility] Other 03-02-2023 10:00-0400 SaO2% (BldA) [Mass fraction] 96 % Herberth Joana Other [facility] Other 03-02-2023 10:00-0400 Systolic blood pressure 136 mm[Hg] Herberth Joana Other [facility] Other 12-08-2022 09:30-0500 Diastolic blood pressure 59 mm[Hg] MD Shaikh Ohara Work Phone: [facility] 12-08-2022 09:30-0500 Heart rate 55 /min MD Shaikh Ohara Work Phone: [facility] 12-08-2022 09:30-0500 Respiratory rate 16 /min MD Shaikh Ohara Work Phone: [facility] 12-08-2022 09:30-0500 SaO2% (BldA) [Mass fraction] 96 % MD Shaikh Ohara Work Phone: [facility] 12-08-2022 09:30-0500 Systolic blood pressure 112 mm[Hg] MD Shaikh Ohara Work Phone: [facility] 12-08-2022 06:54-0500 Body height 162.56 cm MD Shaikh Ohara Work Phone: [facility] 12-08-2022 06:54-0500 Body temperature 98.2 [degF] MD Shaikh Ohara Work Phone: [facility] 12-08-2022 06:54-0500 Body weight 104.32 kg MD Shaikh Ohara Work Phone: [facility] 08-09-2022 11:00-0400 Body height 165.1 cm Herberth Joana Other [facility] Other 08-09-2022 11:00-0400 Body mass index (BMI) [Ratio] 37.87 kg/m2 Herberth Joana Other [facility] Other 08-09-2022 11:00-0400 Body temperature 97.2 [degF] Herberth Joana Other [facility] Other 08-09-2022 11:00-0400 Body weight 103.24 kg Herberth Joana Other [facility] Other 08-09-2022 11:00-0400 Diastolic blood pressure 88 mm[Hg] Herberth Joana Other [facility] Other 08-09-2022 11:00-0400 Respiratory rate 20 /min Herberth Joana Other [facility] Other 08-09-2022 11:00-0400 SaO2% (BldA) [Mass fraction] 95 % Herberth Joana Other [facility] Other 08-09-2022 11:00-0400 Systolic blood pressure 133 mm[Hg] Herberth Joana Other [facility] Other 11-17-2021 10:40-0500 Body height 165.1 cm Herberth Joana Other [facility] Other 11-17-2021 10:40-0500 Body mass index (BMI) [Ratio] 37.97 kg/m2 Herberth Joana Other [facility] Other 11-17-2021 10:40-0500 Body temperature 97.8 [degF] Herberth Joana Other [facility] Other 11-17-2021 10:40-0500 Body weight 103.51 kg Herberth Joana Other [facility] Other 11-17-2021 10:40-0500 Diastolic blood pressure 70 mm[Hg] Herberth Joana Other [facility] Other 11-17-2021 10:40-0500 Respiratory rate 18 /min Herberth Joana Other [facility] Other 11-17-2021 10:40-0500 SaO2% (BldA) [Mass fraction] 94 % Herberth Joana Other [facility] Other 11-17-2021 10:40-0500 Systolic blood pressure 130 mm[Hg] Herberth Joana Other [facility] Other 08-30-2021 13:15-0400 Body height 165.1 cm Rena Ginty Other [facility] Other 08-30-2021 13:15-0400 Body mass index (BMI) [Ratio] 36.61 kg/m2 Rena Ginty Other [facility] Other 08-30-2021 13:15-0400 Body temperature 98.7 [degF] Rena Ginty Other [facility] Other 08-30-2021 13:15-0400 Body weight 99.79 kg Rena Ginty Other [facility] Other 08-30-2021 13:15-0400 SaO2% (BldA) [Mass fraction] 90 % Rena Ginty Other [facility] Other Encounters Encounter Date Encounter Type Care Provider Facility Start: 07-08-2025 ambulatory Amalia Stephens Facility:[facility] Start: 07-08-2025 End: 07-08-2025 Patient encounter procedure Amalia Stephens [facility] Start: 06-18-2025 End: 06-18-2025 Refill Kaylene Rene TRANSIT VEHICLE INSPECTOR Work Phone: [facility] Comment on above: Moderate episode of recurrent major depressive disorder (HCC) Start: 06-11-2025 End: 06-11-2025 ambulatory Amalia Stephens Facility:[facility] Start: 06-11-2025 End: 06-11-2025 Patient encounter procedure Amalia Stephens [facility] Start: 06-04-2025 End: 06-05-2025 Refill Kaylene Rene TRANSIT VEHICLE INSPECTOR Work Phone: [facility] Comment on above: Skin pustule Start: 05-19-2025 End: 05-19-2025 Bamboo flowsheet Kaylene Brianhsuryz TRANSIT VEHICLE INSPECTOR Work Phone: [facility] Start: 05-19-2025 End: 05-19-2025 Bamboo flowsheet Kaylene Aichholz TRANSIT VEHICLE INSPECTOR Work Phone: [facility] Start: 05-19-2025 End: 05-19-2025 Telephone encounter Kaylene Rene TRANSIT VEHICLE INSPECTOR Work Phone: [facility] Start: 05-19-2025 End: 05-19-2025 Office outpatient visit 25 minutes Kaylene Rene TRANSIT VEHICLE INSPECTOR Work Phone: [facility] Comment on above: Moderate episode of recurrent major depressive disorder (HCC) (Primary Dx); Morbid (severe) obesity due to excess calories (CMS-HCC); Candidiasis of breast; Skin pustule; RLS (restless legs syndrome) Start: 05-19-2025 End: 05-19-2025 ambulatory KAYLENE AICHHOLZ Not Available Start: 05-12-2025 End: 05-12-2025 Refill Kaylene Rene TRANSIT VEHICLE INSPECTOR Work Phone: [facility] Comment on above: Chronic heart failur e with preserved ejection fraction (HCC) (Primary Dx); Edema of both lower extremities Start: 05-12-2025 End: 05-12-2025 ambulatory Jayshree Vargas MD Facility:[facility] Start: 04-30-2025 End: 04-30-2025 Clinisync Result Encounter Generic External Data Provider [facility] External Department Unsolicited Start: 04-30-2025 End: 04-30-2025 Clinisync Result Encounter Generic External Data Provider [facility] External Department Unsolicited Start: 04-29-2025 End: 04-29-2025 Refill Kaylene Rene TRANSIT VEHICLE INSPECTOR Work Phone: [facility] Comment on above: Restless leg syndrom e Start: 04-27-2025 End: 04-28-2025 Refill Kaylene Rene TRANSIT VEHICLE INSPECTOR Work Phone: [facility] Comment on above: Chronic bilateral lo w back pain without sciatica Start: 04-23-2025 End: 04-23-2025 Refill Kaylene Aichholz TRANSIT VEHICLE INSPECTOR Work Phone: [facility] Comment on above: Moderate episode of recurrent major depressive disorder (HCC) (Primary Dx) Start: 04-09-2025 End: 04-09-2025 Bamboo flowsheet Kaylene Rene TRANSIT VEHICLE INSPECTOR Work Phone: [facility] Start: 04-09-2025 End: 04-09-2025 Bamboo flowsheet Kaylene Brianhsuryz TRANSIT VEHICLE INSPECTOR Work Phone: [facility] Start: 04-09-2025 End: 04-09-2025 Office outpatient visit 25 minutes Kaylene Rene TRANSIT VEHICLE INSPECTOR Work Phone: [facility] Comment on above: Moderate episode of recurrent major depressive disorder (CMS/HCC) (Primary Dx); Pulmonary emphysema, unspecified emphysema type (CMS/HCC); Chronic respiratory failure with hypoxia (CMS/HCC); Morbid (severe) obesity due to excess calories (CMS/HCC); Restless leg syndrome Start: 04-09-2025 End: 04-09-2025 ambulatory KAYLENE LÓPEZ Not Available Start: 03-24-2025 End: 03-24-2025 ambulatory MAG BLOUNT Facility:[facility] Start: 03-24-2025 End: 03-24-2025 Patient encounter procedure MAG BLOUNT [facility] Start: 03-10-2025 End: 03-12-2025 Clinisync Result Encounter Generic External Data Provider [facility] External [facility] Unsolicited Start: 03-10-2025 End: 03-12-2025 Clinisync Result Encounter Generic External Data Provider [facility] External Department Unsolicited Start: 03-03-2025 End: 03-03-2025 Clinisync Result Encounter Kaylene López TRANSIT VEHICLE INSPECTOR Work Phone: [facility] Unsolicited Start: 03-03-2025 End: 03-03-2025 Clinisync Result Encounter Kaylene López TRANSIT VEHICLE INSPECTOR Work Phone: [facility] Unsolicited Start: 02-26-2025 End: 02-26-2025 Refill Kaylene López TRANSIT VEHICLE INSPECTOR Work Phone: [facility] Comment on above: Gastroesophageal ref lux disease without esophagitis Start: 02-17-2025 End: 02-17-2025 Bamboo flowsheet Kaylene López TRANSIT VEHICLE INSPECTOR Work Phone: [facility] Start: 02-17-2025 End: 02-17-2025 Bamboo flowsheet Kaylene López TRANSIT VEHICLE INSPECTOR Work Phone: [facility] Start: 02-17-2025 End: 02-17-2025 Office outpatient visit 25 minutes Kaylene López TRANSIT VEHICLE INSPECTOR Work Phone: [facility] Comment on [...] Candidiasis Start: 02-17-2025 End: 02-17-2025 ambulatory KAYLENE RENE Not Available Start: 01-23-2025 End: 01-23-2025 ambulatory MANIAB [facility] Start: 01-16-2025 End: 01-16-2025 Office outpatient visit 25 minutes Kaylene López TRANSIT VEHICLE INSPECTOR Work Phone: [facility] Comment on above: Pneumonia due to inf [...] (CMS/HCC) Start: 01-16-2025 End: 01-16-2025 ambulatory KAYLENE PETERZ Not Available Start: 01-15-2025 End: 01-15-2025 Refill Kaylene López TRANSIT VEHICLE INSPECTOR Work Phone: [facility] Comment on above: Pneumonia due to inf ectious organism, unspecified laterality, unspecified part of lung (Primary Dx) Start: 01-02-2025 End: 01-02-2025 Office outpatient visit 25 minutes Kaylene López TRANSIT VEHICLE INSPECTOR Work Phone: [facility] Comment on above: Flu-like symptoms (P rimary Dx); Morbid (severe) obesity due to excess calories (CMS/HCC); Body mass index (BMI) 40.0-44.9, adult (CMS/HCC); Pulmonary emphysema, unspecified emphysema type (CMS/HCC); Chronic respiratory failure with hypoxia (CMS/HCC); Essential hypertension (CMS/HCC) Start: 01-02-2025 End: 01-02-2025 ambulatory KAYLENE LÓPEZ Not Available Start: 01-02-2025 End: 01-02-2025 Bamboo flowsheet Kaylene Rene TRANSIT VEHICLE INSPECTOR Work Phone: [facility] Start: 01-02-2025 End: 01-04-2025 Bamboo flowsheet Kaylene López TRANSIT VEHICLE INSPECTOR Work Phone: [facility] Start: 01-02-2025 End: 01-04-2025 Clinisync Result Encounter Generic External Data Provider [facility] External Department Unsolicited Start: 12-17-2024 End: 12-17-2024 Office outpatient visit 15 minutes Jessica Lazo MD Work Phone: [facility] Comment on above: Seborrheic keratosis (Primary Dx); History of SCC (squamous cell carcinoma) of skin; Lentigines Start: 12-17-2024 End: 12-17-2024 ambulatory JESSICA LAZO Not Available Start: 12-17-2024 End: 12-17-2024 Bamboo flowsheet Ramin KING Work Phone: [facility] Start: 12-17-2024 End: 12-17-2024 Bamboo flowsheet Ramin KING Work Phone: [facility] Start: 12-17-2024 End: 12-17-2024 ambulatory RAMIN MAIER Not Available Start: 12-17-2024 End: 12-17-2024 Office outpatient visit 25 minutes Ramin KING Work Phone: [facility] Comment on above: Acute pain of right knee (Primary Dx); History of total right knee replacement; Right hip pain; Arthritis of right hip Start: 12-15-2024 End: 12-16-2024 Refill Aida Reese TRANSIT VEHICLE INSPECTOR Work Phone: [facility] Comment on above: Moderate episode of recurrent major depressive disorder ([facility]/HCC) Start: 12-13-2024 End: 12-13-2024 Bamboo flowssamy Lazo [...] Start: 12-05-2024 End: 12-09-2024 Refill Aida Reese TRANSIT VEHICLE INSPECTOR Work Phone: [facility] Comment on above: Restless leg syndrom e Start: 11-30-2024 End: 12-02-2024 Refill Aida Reese TRANSIT VEHICLE INSPECTOR Work Phone: [facility] Comment on above: Gastroesophageal ref lux disease without esophagitis Start: 11-28-2024 End: 11-28-2024 Bamboo flowsheet Aida Reese TRANSIT VEHICLE INSPECTOR Work Phone: [facility] Start: 11-28-2024 End: 11-28-2024 Bamboo flowsheet Aida Reese TRANSIT VEHICLE INSPECTOR Work Phone: [facility] Start: 11-28-2024 End: 11-28-2024 ambulatory AIDA REESE Not Available Start: 11-28-2024 End: 11-28-2024 Transitional care manage srvc 14 day discharge Aida Reese TRANSIT VEHICLE INSPECTOR Work Phone: [facility] Comment on above: Pulmonary emphysema, unspecified emphysema type (CMS/HCC) (Primary Dx) Start: 11-12-2024 End: 11-12-2024 Bamboo flowsheet Aida Reese TRANSIT VEHICLE INSPECTOR Work Phone: [facility] Start: 11-12-2024 End: 11-12-2024 Bamboo flowsheet Aida Reese TRANSIT VEHICLE INSPECTOR Work Phone: [facility] Start: 11-12-2024 End: 11-12-2024 Office outpatient visit 15 minutes Aida Hartpatrick TRANSIT VEHICLE INSPECTOR Work Phone: [facility] Comment on above: Chronic obstructive pulmonary disease with acute lower respiratory infection (CMS/HCC) (Primary Dx); Primary HSV infection of mouth Start: 11-12-2024 End: 11-12-2024 ambulatory AIDA BRANNONZPATRICK Not Available Start: 10-26-2024 End: 10-28-2024 Refill Aida Reese TRANSIT VEHICLE INSPECTOR Work Phone: [facility] Comment on above: Moderate episode of recurrent major depressive disorder (CMS/HCC); Restless leg syndrome Start: 10-17-2024 End: 10-17-2024 ambulatory [facility] Start: 10-15-2024 End: 10-15-2024 ambulatory MAG BLOUNT Facility:[facility] Start: 10-15-2024 End: 10-15-2024 Lab Drop off MAG BLOUNT [facility] Start: 10-15-2024 End: 10-15-2024 Refill Aida Reese TRANSIT VEHICLE INSPECTOR Work Phone: [facility] Comment on above: Moderate episode of recurrent major depressive disorder (CMS/HCC) Start: 10-15-2024 End: 10-15-2024 ambulatory MAG BLOUNT Facility:[facility] Start: 10-15-2024 End: 10-15-2024 Patient encounter procedure MAG BLOUNT [facility] Start: 10-12-2024 End: 10-14-2024 Refill Aida Vidaltrick TRANSIT VEHICLE INSPECTOR Work Phone: [facility] Comment on above: Urge incontinence Start: 10-11-2024 End: 10-11-2024 Bamboo flowsheet [facility] Work Phone: [facility] Start: 10-11-2024 End: 10-11-2024 [facility] Start: 10-11-2024 End: 10-11-2024 Patient encounter procedure [facility] Work Phone: [facility] Comment on above: Neoplasm of unspecif ied behavior of bone, soft tissue, and skin (Primary Dx) Start: 10-11-2024 End: 10-11-2024 ambulatory [facility] Not Available Start: 10-08-2024 ambulatory [facility] Facility :[facility] Start: 10-07-2024 End: 10-07-2024 Office outpatient visit 15 minutes Aida Negronk TRANSIT VEHICLE INSPECTOR Work Phone: [facility] Comment on above: Urge incontinence (P rimary Dx); Morbid obesity with BMI of 40.0-44.9, adult (CMS/HCC); 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; Stage 3a chronic kidney disease (HCC) (CMS/HCC); Chronic respiratory failure with hypoxia (CMS/HCC) Start: 10-07-2024 End: 10-07-2024 ambulatory AIDA REESE Not Available Start: 10-07-2024 End: 10-07-2024 Bamboo flowsheet Aida Reese TRANSIT VEHICLE INSPECTOR Work Phone: [facility] Start: 10-07-2024 End: 10-07-2024 Bamboo flowsheet Aida Reese TRANSIT VEHICLE INSPECTOR Work Phone: [facility] Start: 09-25-2024 End: 09-26-2024 Refill Aida Negrnok TRANSIT VEHICLE INSPECTOR Work Phone: [facility] Comment on above: Restless leg syndrom e Start: 09-12-2024 End: 09-12-2024 ambulatory Aida Vidaltrick TRANSIT VEHICLE INSPECTOR-C Work Phone: [facility] Work Phone: Start: 09-12-2024 End: 09-12-2024 Departed Referred Aida Vidaltrick TRANSIT VEHICLE INSPECTOR-C Work Phone: [facility] [place] Start: 09-10-2024 End: 09-10-2024 Orders Only Aida Vidaltrick TRANSIT VEHICLE INSPECTOR Work Phone: [facility] Comment on above: Vaginal guero (Aleja joy Dx) Start: 09-05-2024 End: 09-05-2024 Departed Referred Aidashaye Vidaltrick TRANSIT VEHICLE INSPECTOR-C Work Phone: [facility] Work Phone: Start: 09-05-2024 End: 09-05-2024 Patient encounter procedure TRANSIT VEHICLE INSPECTOR-C Aidashaye Vidaltrick Work Phone: [facility] Work Phone: Start: 09-05-2024 End: 09-05-2024 ambulatory TRANSIT VEHICLE INSPECTOR-C Aida Tenorio Reese Work Phone: [facility] Work Phone: Start: 09-03-2024 End: 09-03-2024 Refill Rukhsana Rutherford MA [facility] Comment on above: Gastroesophageal ref lux disease without esophagitis Start: 08-19-2024 End: 08-19-2024 Bamboo flowsheet Aida Reese TRANSIT VEHICLE INSPECTOR Work Phone: [facility] Start: 08-19-2024 End: 08-19-2024 Bamboo flowsheet Aida Reese TRANSIT VEHICLE INSPECTOR Work Phone: [facility] Start: 08-19-2024 End: 08-19-2024 Transitional care manage srvc 7 day discharge Aida Reese TRANSIT VEHICLE INSPECTOR Work Phone: [facility] Comment on [...] Start: 08-12-2024 End: 08-27-2024 Refill Aida Reese TRANSIT VEHICLE INSPECTOR Work Phone: [facility] Comment on above: Restless leg syndrom e Start: 08-08-2024 End: 08-12-2024 Non-patient / Non-visit TRANSIT VEHICLE INSPECTOR-C Aida Reese Work Phone: [facility] Work Phone: Start: 08-08-2024 End: 08-12-2024 Clinisync [...] 07-15-2024 End: 07-15-2024 ambulatory Jayshree Vargas MD Facility:[facility] Start: 07-12-2024 End: 07-12-2024 Clinisync Result Encounter Aida Reese TRANSIT VEHICLE INSPECTOR Work Phone: [facility] Unsolicited Start: 07-12-2024 End: 07-12-2024 Clinisync Result Encounter Aida Negronk TRANSIT VEHICLE INSPECTOR Work Phone: [facility] Unsolicited Start: 07-11-2024 End: 07-11-2024 Bamboo flowsheet Aida Vidaltrick TRANSIT VEHICLE INSPECTOR Work Phone: [facility] Start: 07-11-2024 End: 07-11-2024 Bamboo flowsheet Aida Vidaltrick TRANSIT VEHICLE INSPECTOR Work Phone: [facility] Start: 07-11-2024 End: 07-11-2024 ambulatory [facility] Start: 07-11-2024 End: 07-11-2024 Office outpatient visit 25 minutes Aida Reese TRANSIT VEHICLE INSPECTOR Work Phone: [facility] Comment on above: Benign essential HTN (CMS/HCC) (Primary Dx); Chronic heart failure with preserved ejection fraction (CMS/HCC); Severe persistent asthma without complication (CMS/HCC); Moderate mixed hyperlipidemia not requiring statin therapy (CMS/HCC); Morbid obesity with BMI of 40.0-44.9, adult (CMS/HCC) Start: 07-11-2024 End: 07-11-2024 ambulatory AIDA REESE Not Available Start: 07-02-2024 End: 07-02-2024 ambulatory [facility] Start: 06-29-2024 Non-patient / Non-visit TRANSIT VEHICLE INSPECTOR-C B chase Reese Work Phone: [facility] Work Phone: Start: 06-28-2024 End: 07-02-2024 Clinisync Result Encounter Generic External Data Provider [facility] Unsolicited Start: 06-28-2024 End: 07-02-2024 Clinisync Result Encounter Generic External Data Provider [facility] Unsolicited Start: 06-25-2024 ambulatory [facility] Start: 06-24-2024 End: 06-24-2024 ambulatory Jayshree Vargas MD Facility:[facility] Start: 06-21-2024 End: 06-21-2024 ambulatory [facility] Start: 06-12-2024 End: 06-12-2024 ambulatory AIDA REESE Not Available Start: 05-13-2024 End: 05-13-2024 ambulatory [facility] Start: 03-14-2024 End: 03-14-2024 ambulatory Steph Collier Work Phone: [facility] Work Phone: Start: 03-14-2024 End: 03-14-2024 Patient encounter procedure Steph Collier Work Phone: [facility] [facility] Work Phone: Start: 03-06-2024 Non-patient / Non-visit Steph Collier Work Phone: [facility] Work Phone: Start: 11-06-2023 Patient encounter procedure Generic Provider [facility] Start: 09-07-2023 End: 09-07-2023 ambulatory Herberth Joana Other [facility] Other Start: 09-07-2023 Telephone encounter Herberth Joana [facility] Start: 08-28-2023 End: 08-28-2023 ambulatory Herberth Joana Other [facility] Other Start: 08-28-2023 Telephone encounter Herberth Joana [facility] Start: 08-17-2023 End: 08-17-2023 ambulatory Herberth Joana Other [facility] Other Start: 08-17-2023 Office outpatient vi sit 25 minutes Herberth Joana [facility] Start: 04-04-2023 End: 04-04-2023 ambulatory SHAIKH Dimitry OHARA Facility:[facility] Start: 03-24-2023 End: 03-25-[address] STEPH GRANADOS Facility:[facility] Start: 03-02-2023 End: 03-02-2023 ambulatory Herberth Joana Other [facility] Other Start: 03-02-2023 Office outpatient vi sit 25 minutes Herberth Joana [facility] Start: 02-25-2023 End: 02-26-2023 ambulatory HERBERTH JOANA Facility:[facility] Start: 02-22-2023 End: 02-23-2023 ambulatory BO MCCLAIN . Facility:[facility] Start: 12-15-2022 End: 12-16-[address] JACK HALL . Facility:[facility] Start: 12-08-2022 End: 12-08-2022 Admission to same day surgery center MD Shaikh Ohara Work Phone: [facility] Work Phone: Start: 12-08-2022 End: 12-08-2022 ambulatory MD Shaikh Ohara Work Phone: [facility] Work Phone: Start: 11-11-2022 End: 11-11-[address] JACK HALL . Facility:[facility] Start: 11-09-2022 End: 11-09-2022 ambulatory Gilma Trent Other [facility] Other Start: 11-09-2022 Telephone encounter Aziz Bakjerilyns [facility] Start: 08-19-2022 End: 08-20-2022 ambulatory HERBERTH JOANA Facility:[facility] Start: 08-09-2022 End: 08-09-2022 ambulatory Herberth Joana Other [facility] Other Start: 08-09-2022 Office outpatient vi sit 10 minutes Herberth Joana [facility] Start: 08-09-2022 Telephone encounter Herberth Joana [facility] Start: 08-05-2022 Telephone encounter Herberth Joana [facility] Start: 08-05-2022 End: 08-06-2022 ambulatory HERBERTH JOANA [employer] Other Start: 07-08-2022 End: 07-08-2022 ambulatory Gato Domingo Other [facility] Other Start: 07-08-2022 Telephone encounter Gato Cesar [facility] Start: 07-05-2022 End: 07-06-2022 ambulatory MESSER H FAWWAD Facility:[facility] Start: 06-08-2022 End: 06-09-2022 ambulatory MESSER H FAWWAD Facility:[facility] Start: 06-07-2022 End: 06-07-2022 ambulatory MESSER H FAWWAD Facility:[facility] Start: 01-24-2022 End: 01-25-2022 ambulatory PHYSICIAN UNKNOWN Facility:[facility] Start: 11-17-2021 End: 11-17-2021 ambulatory Herberth Joana Other [facility] Other Start: 11-17-2021 Office outpatient vi sit 15 minutes Herberth Joana [facility] Start: 08-30-2021 Office outpatient vi sit 15 minutes Rena Ginty [facility] Start: 09-11-2020 End: 09-11-2020 Chart abstracting Miguelito Buck Work Phone: Hematology/Oncology Start: 09-11-2020 End: 09-11-2020 Patient encounter procedure External Provider [facility] Start: 09-11-2020 Results Only External Provider Ex[facility] Start: 09-30-2019 End: 09-30-2019 Patient encounter procedure Steph [facility] [place] Start: 07-07-2017 End: 07-07-2017 Admission to day surgery Steph [facility] Start: 05-24-2004 Evaluation and management of inpatient [facility] [place] Start: 04-26-2004 Evaluation and management of inpatient [facility] [place] Procedures Date Procedure Procedure Detail Performing Clinician Start: 04-30-2025 Radex hip unilateral with pelvis 2-3 views Generic External Data Provider Start: 03-10-2025 BLOOD CULTURE 2 Generic External Data Provider Start: 03-10-2025 BLOOD CULTURE 1 Generic External Data Provider Start: 03-03-2025 End: 03-03-2025 Screening mammography bi 2-view breast inc cad Kaylene López TRANSIT VEHICLE INSPECTOR Work Phone: Start: 01-02-2025 BLOOD CULTURE 1 Generic External Data Provider Start: 01-02-2025 STATUS COVID-19/FLU Elba López TRANSIT VEHICLE INSPECTOR Work Phone: Start: 12-17-2024 End: 12-17-2024 Radex [...] ALL CBC WITH AUTO DIFF Aida Reese TRANSIT VEHICLE INSPECTOR Work Phone: Start: 06-28-2024 BLOOD CULTURE 2 Generic External Data Provider Start: 06-28-2024 BLOOD CULTURE 1 Generic External Data Provider Start: 02-29-2024 Mammography Generic Pr ovider Start: 12-08-2022 End: 12-08-2022 Colonoscopy MD Shaikh Ohara Work Phone: Start: 09-11-2020 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 Procurement Manager al Provider Start: 09-11-2020 EXTERNAL LAB External P rovider Start: 09-11-2020 EXTERNAL PROCEDURE Exte rnal Provider Start: 09-30-2019 Ultrasonography of b ilateral kidneys Steph Roshon Arthroplasty of knee MARIO BLOUNT Colonoscopy MAG JOSE ALEJANDRO Extraction of cataract ESTHER BLAINE GOMEZRY Insertion of hip prosthesis MAG BLOUNT Ligation of fallopian tube Paolo GALLAGHERBLAINE JOSE ALEJANDRO Plan of Treatment Date Care Activity Detail Author Start: 12-08-2032 Screening for malignant neoplasm of colon [facility] Start: 12-15-2026 End: 12-15-2026 Patient encounter procedure [facility] Start: 04-09-2026 Urine screening for protein Diabetes: Urine Protein Screening [facility] Comment on above: Postponed from 1975 (Other Medical Reasons) Start: 03-03-2026 Screening for malignant neoplasm of breast Mammogram [facility] Start: 07-17-2025 End: 07-17-2025 Patient encounter procedure 07/17/2025 9:00 AM EDT Office Visit [facility] [address] [place] [phone] Kaylene López, RIKKI [address] [place] [phone] [facility] Start: 07-16-2025 End: 07-16-2025 Patient encounter procedure 07/16/2025 2:45 PM EDT Office Visit [facility] D[facility] [address] [place] [phone] Jessica Lazo MD [address] [place] [address] [facility] Start: 07-07-2025 Influenza vaccination Influenza Vaccine (#1) [facility] Start: 06-17-2025 End: 06-17-2025 Patient encounter procedure [facility] KYLIE SKINNER Start: 05-19-2025 End: 05-19-2025 Patient encounter procedure [facility] Comment on above: Moderate episode of recurrent major depr essive disorder (HCC) (Primary Dx); Morbid (severe) obesity due to excess calories (CMS-HCC) Start: 04-09-2025 End: 04-09-2025 Patient encounter procedure 04/09/2025 11:00 AM EDT Office Visit [facility] [address] [place] [phone] Kaylene López, RIKKI [address] [place] [phone] Pulmonary emphysema, unspecified emphysema type (CMS/HCC) (Primary Dx); Chronic respiratory failure with hypoxia (CMS/HCC); Morbid (severe) obesity due to excess calories (CMS/HCC) [facility] Comment on above: Pulmonary emphysema, unspecified emphyse ma type (CMS/HCC) (Primary Dx); Chronic respiratory failure with hypoxia (CMS/HCC); Morbid (severe) obesity due to excess calories (CMS/HCC) Start: 03-26-2025 End: 03-26-2025 Patient encounter procedure 03/26/2025 11:30 AM EDT Office Visit [facility] [address] [place] [phone] Kaylene López, RIKKI [address] [place] [address] [facility] Start: 02-28-2025 Screening for malignant neoplasm of breast Mammogram [facility] Start: 02-17-2025 End: 02-17-2025 Patient encounter procedure [facility] Comment on above: Spinal stenosis, [...] breast cancer Expected: 02/16/2025 (Approximate), Expires: 03/18/2026 [facility] Work Phone: Comment on above: Expected: 02/16/2025 (Approximate), Expi res: 03/18/2026 Start: 01-16-2025 End: 01-16-2025 Patient encounter procedure 01/16/2025 10:00 AM EDT Office Visit [facility] [address] [place] [phone] Kaylene López, RIKKI [address] [place] [phone] [facility] Start: 01-09-2025 End: 01-09-2025 Patient encounter procedure 01/09/2025 1:40 PM EST Office Visit [facility] [address] [place] [address] Kaylene López, TRANSIT VEHICLE INSPECTOR [address] [place] [phone] [facility] Start: 01-09-2025 End: 01-09-2025 Patient encounter procedure 01/09/2025 8:30 AM EST Office Visit [facility] [address] [place] [address] Aida Reese NP [address] [place] [address] [facility] Start: 01-02-2025 End: 01-02-2025 Patient encounter procedure 01/02/2025 2:40 PM EST Office Visit [facility] [address] [place] [address] Kaylene López, TRANSIT VEHICLE INSPECTOR [address] [place] [address] Pulmonary emphysema, unspecified emphysema type (CMS/HCC) (Primary Dx); Chronic kidney disease, stage 3a (HCC) (CMS/HCC); Severe persistent asthma, uncomplicated (CMS/HCC); Morbid (severe) obesity due to excess calories (CMS/HCC); Body mass index (BMI) 40.0-44.9, adult (CMS/HCC); Chronic respiratory failure with hypoxia (CMS/HCC); Essential hypertension (CMS/HCC); Gastroesophageal reflux disease, unspecified whether esophagitis present; Malignant neoplasm of rectosigmoid junction (CMS/HCC); Urge incontinence [facility] Comment on above: Pulmonary emphysema, [...] procedure 12/09/2024 2:30 PM EST Office Visit [facility] [address] [place] [address] Aida Reese NP [address] [place] [phone] WILL TSAI Start: 11-20-2024 End: 11-20-2024 Patient encounter procedure [facility] Start: 11-15-2024 End: 11-15-2024 Patient encounter procedure 11/15/2024 10:30 AM EST Office Visit [facility] [address] [place] [address] Jayna Goode PA [address] [place] [address] [facility] Start: 11-12-2024 End: 11-12-2025 XR Chest 2 Views XR chest 2 views Imaging Routine Chronic obstructive pulmonary disease with acute lower respiratory infection (CMS/HCC) Expected: 11/12/2024, Expires: 11/12/2025 [facility] Work Phone: Comment on above: Expected: 11/12/2024, Expires: Start: 11-12-2024 End: 11-12-2024 Patient encounter procedure 11/12/2024 10:30 AM EST Office Visit [facility] [address] [place] [address] Aida Reese, TRANSIT VEHICLE INSPECTOR [address] [place] [address] Arrived [facility] Comment on above: [...] [facility] [address] [place] [address] Aida Reese, TRANSIT VEHICLE INSPECTOR [address] [place] [address] [facility] Start: 10-07-2024 End: 10-07-2024 Patient encounter procedure 10/07/2024 2:30 PM EST Office Visit [facility] [address] [place] [address] Aida Reese, TRANSIT VEHICLE INSPECTOR [address] [place] [address] Arrived [facility] Comment on above: Arrived Start: 09-12-2024 Phacoemulsification of cataract with intraocular lens implantation OR Cataract PHACO W/IOL/Vitrectomy (Left) [facility] Start: 08-19-2024 End: 08-19-2025 Clostridioides difficile toxin A+B tcdA+tcdB genes [Presence] in Stool by KAYLEE with probe detection Clostridium difficile,EIA Microbiology Routine Diarrhea, unspecified type Expected: 08/19/2024 (Approximate), Expires: 08/19/2025 [facility] Work Phone: Comment on above: Expected: 08/19/2024 (Approximate), Expi res: 08/19/2025 Start: 08-19-2024 End: 08-19-2024 Patient encounter procedure [facility] Comment on above: Arrived Start: 07-11-2024 End: 07-11-2025 CBC W Auto Differential panel - Blood CBC and differential Lab Routine Benign essential HTN (CMS/HCC) Chronic heart failure with preserved ejection fraction (CMS/HCC) Moderate mixed hyperlipidemia not requiring statin therapy (CMS/HCC) Morbid obesity with BMI of 40.0-44.9, adult (CMS/HCC) Expected: 07/11/2024 (Approximate), Expires: 07/11/2025 [facility] Comment on above: Expected: 07/11/2024 (Approximate), Expi res: 07/11/2025 Start: 07-11-2024 End: 07-11-2025 Comprehensive metabolic 2000 panel - Serum or Plasma Comprehensive metabolic panel Lab Routine Benign essential HTN (CMS/HCC) Chronic heart failure with preserved ejection fraction (CMS/HCC) Moderate mixed hyperlipidemia not requiring statin therapy (CMS/HCC) Morbid obesity with BMI of 40.0-44.9, adult (CMS/HCC) Expected: 07/11/2024 (Approximate), Expires: 07/11/2025 [facility] Comment on above: Expected: 07/11/2024 (Approximate), Expi res: 07/11/2025 Start: 07-11-2024 End: 07-11-2025 Lipid 1996 panel - Serum or Plasma Lipid panel Lab Routine Moderate mixed hyperlipidemia not requiring statin therapy (CMS/HCC) Expected: 07/11/2024 (Approximate), Expires: 07/11/2025 [facility] Comment on above: Expected: 07/11/2024 (Approximate), Expi res: 07/11/2025 Start: 07-11-2024 End: 07-11-2025 Microalbumin/Creatinine panel in random Urine Microalbumin / creatinine urine ratio Lab Routine Benign essential HTN (CMS/HCC) Expected: 07/11/2024 (Approximate), Expires: 07/11/2025 [facility] Work Phone: Comment on above: Expected: 07/11/2024 (Approximate), Expi res: 07/11/2025 Start: 07-11-2024 End: 07-11-2024 Patient encounter procedure [facility] Comment on above: Benign essential HTN (CMS/HCC) (Primary Dx); Chronic heart failure with preserved ejection fraction (CMS/HCC); Severe persistent asthma without complication (CMS/HCC) Start: 07-07-2024 Influenza vaccination Influenza Vaccine (#1) [facility] Start: 12-08-2022 [facility] Start: 07-07-2020 Influenza vaccination INFLUENZA (#1) [facility] Start: 2006 SHINGRIX VACCINE (1 of 2) SHINGRIX VACCINE (1 of 2) [facility] Start: 2006 Tuberculosis screening COLORECTAL CANCER SCREENING,SEE MODIFIER [facility] Start: 2001 DIABETES SCREEN DIABETES SCREEN [facility] Start: 2001 LIPID SCREEN LIPID SCREEN [facility] Start: 1996 Mammography MAMMOGRAM [facility] Start: 1986 HPV TESTING HPV TESTING [facility] Start: 1977 PAP TESTING PAP TESTING [facility] Start: 1975 Urine microalbumin profile DTAP,TDAP,TD (1 - Tdap) [facility] Start: 1975 Urine screening for protein Diabetes: Urine Protein Screening [facility] Start: 1974 HEPATITIS C SCREENING HEPATITIS C SCREENING [facility] Start: 1974 HIV SCREENING HIV SCREENING [facility] Start: 1966 Glaucoma screening Diabetes: Retinopathy Screening [facility] Start: 1956 Hemoglobin A1c measurement Diabetes: Hemoglobin A1C [facility] Start: 1956 Screening for malignant neoplasm of colon [facility] BLOOD CULTURE 1 BLOOD CULTURE 1 Lab Routine 08/08/2024 8:30 PM EDT [facility] BLOOD CULTURE 1 BLOOD CULTURE 1 Lab Routine 06/28/2024 8:20 PM EDT [facility] BLOOD CULTURE 1 BLOOD CULTURE 1 Lab Routine 01/02/2025 4:30 PM EST [facility] BLOOD CULTURE 1 BLOOD CULTURE 1 Lab Routine 03/10/2025 10:25 PM EDT [facility] BLOOD CULTURE 2 BLOOD CULTURE 2 Lab Routine 08/08/2024 8:20 PM EDT [facility] BLOOD CULTURE 2 BLOOD CULTURE 2 Lab Routine 06/28/2024 8:21 PM EDT [facility] BLOOD CULTURE 2 BLOOD CULTURE 2 Lab Routine 03/10/2025 10:32 PM EDT [facility] Dermatopathology exam Dermatopat hology exam Pathology and Cytology Timed Neoplasm of unspecified behavior of bone, soft tissue, and skin Release Upon Ordering for 1 Occurrences starting 10/11/2024 [facility] Work Phone: Comment on above: Release Upon Ordering for 1 Occurrences starting 10/11/2024 LOWER RESPIRATORY CULTURE LOWER RESPIRATORY CULTURE Lab Routine 08/12/2024 9:50 AM EDT [facility] Work Phone: Patient Education Colon Polypect shahram Hemorrhoids (DC) Diverticulosis (DC) [facility] Work Phone: [facility] Immunizations Immunization Date Immunization Notes Care Provider Henrietta donato 09-06-2024 influenza, high dose seasonal, preservative-free Kaylene López TRANSIT VEHICLE INSPECTOR Work Phone: [facility] 09-06-2024 influenza virus vaccine, unspecified formulation Aida Reese TRANSIT VEHICLE INSPECTOR Work Phone: [facility] 08-26-2023 Influenza, High-dose Seasonal, Quadrivalent, Preservative Free Generic Provider [facility] 08-26-2023 influenza virus vaccine, unspecified formulation Generic Provider [facility] 08-18-2023 RSV, recombinant, protein subunit RSVpreF, adjuvant reconstitu, 120mcg/0.5mL, PF (Arexvy) Generic Provider [facility] 08-09-2023 Pneumococcal Conjuga te PCV 20 Generic Provider [facility] 11-01-2022 zoster vaccine recombinant Generic Provider [facility] 08-27-2022 zoster vaccine recombinant Generic Provider [facility] 08-04-2022 influenza virus vaccine, unspecified formulation MAG BLOUNT [facility] 08-04-2022 Influenza, High-dose Seasonal, Quadrivalent, Preservative Free Generic Provider [facility] 08-04-2022 SARS-CoV-2 (COVID-19 ) [id number] MAG BLOUNT [facility] 03-25-2022 SARS-CoV-2 (COVID-19 ) mRNA-1273 vaccine MAG JOSE ALEJANDRO [facility] 09-06-2021 SARS-CoV-2 (COVID-19 ) mRNA-1273 vaccine MAG JOSE ALEJANDRO [facility] 08-06-2021 influenza virus vaccine, unspecified formulation AMG BLOUNT [facility] 08-06-2021 Influenza, High-dose Seasonal, Quadrivalent, Preservative Free Generic Provider [facility] 02-04-2021 SARS-CoV-2 (COVID-19 ) mRNA-[id number] vaccine MAG JOSE ALEJANDRO [facility] Comment on above: Result Comment: 2024: [id number] 01-07-2021 SARS-CoV-2 (COVID-19 ) mRNA-1273 vaccine MAG JOSE ALEJANDRO [facility] Comment on above: Result Comment: 2024: [id number] 08-07-2020 influenza virus vaccine, unspecified formulation MAG JOSE ALEJANDRO [facility] 08-07-2020 influenza, injectabl e, quadrivalent, preservative free Generic Provider [facility] 08-09-2019 influenza virus vaccine, unspecified formulation MAG JOSE ALEJANDRO [facility] 08-09-2019 influenza, injectabl e, quadrivalent, preservative free Generic Provider [facility] 10-19-2018 pneumococcal polysaccharide vaccine, 23 valent Generic Provider [facility] 08-08-2018 influenza virus vaccine, unspecified formulation MAG JOSE ALEJANDRO [facility] 08-08-2018 influenza, injectabl e, quadrivalent, preservative free Generic Provider [facility] 07-18-2018 Depo-Medrol 40 mg Rena Gint y Other [facility] Other 01-31-2018 Depo-Medrol 40 mg Rena Gint y Other [facility] Other 08-10-2017 influenza virus vaccine, unspecified formulation MAGBLAINE BLOUNT [facility] 08-10-2017 influenza, injectabl e, quadrivalent, preservative free Generic Provider [facility] 08-09-2017 influenza virus vaccine, split virus (incl. purified surface antigen) Generic Provider [facility] 08-09-2017 influenza virus vaccine, unspecified formulation Steph Collier Work Phone: [facility] 08-09-2017 influenza, seasonal, injectable, preservative free Rena Ginty Other [facility] Other 09-02-2009 novel [id number], preservative-free, injectable Generic Provider [facility] Healthcare Payers Date Payer Category Payer Medicare [id number] 2024 Medicaid [id number] 2024 Medicaid [id number] 2024 Medicare [id number] 2024 Private Health Insurance [id number] 2024 Medicare [id number] 2023 Medicare (Managed Care) 1.2. [id number] 2022 Unknown 2021 Medicare [id number] 2019 Medicaid MEDICAID [facility] MEDICAID [id number] 2019-Present Medicaid [id number] 2017 Medicare [id number] .[id number] 2016 Medicare MEDICARE MEDICAR E A AND B [id number] 2016-Present [place] Medicare [id number] .[id number] 1959 Unknown [id number] 1956 Unknown [id number] 2.16.840.1.476785.3.579.2.6 47 1956 Unknown [id number] 2.16.840.1.917969.3.579.2.5 93 1956 Unknown [id number] 2.16.840.1.304155.3.579.2.5 93 1956 Unknown [id number] 2.16.840.1.821600.3.579.2.5 93 1956 Unknown [id number] 2.16.840.1.702346.3.579.2.5 93 1956 Unknown [id number] 2.16.840.1.786355.3.579.2.5 93 1956 Unknown [id number] 2.16.840.1.860978.3.579.2.5 93 1956 Unknown [id number] 2.16.840.1.840209.3.579.2.5 93 1956 Unknown [id number] 2.16.840.1.581804.3.579.2.5 93 1956 Unknown [id number] 2.16.840.1.658386.3.579.2.5 93 1956 Unknown [id number] 2.16.840.1.781992.3.579.2.5 93 1956 Unknown [id number] 2.16.840.1.555971.3.579.2.5 93 1956 Unknown [id number] 2.16.840.1.182644.3.579.2.7 1956 Unknown [id number] 2.16.840.1.331991.3.579.2.7 27 1956 Unknown [id number] 2.16.840.1.774994.3.579.2.7 27 1956 Unknown [id number] 2.16.840.1.824734.3.579.2.1 259 1956 Unknown [id number] 2.16.840.1.034149.3.579.2.1 259 1956 Unknown [id number] 2.16.840.1.241282.3.579.2.1 259 1956 Unknown [id number] 2.16.840.1.267352.3.579.2.1 259 1956 Unknown [id number] 2.16.840.1.275623.3.579.2.1 259 1956 Unknown [id number] 2.16.840.1.762917.3.579.2.1 259 1956 Unknown [id number] 2.16.840.1.307638.3.579.2.1 259 1956 Unknown [id number] 2.16.840.1.192709.3.579.2.1 259 1956 Unknown [id number] 2.16.840.1.037240.3.579.2.1 259 1956 Unknown [id number] 2.16.840.1.240249.3.579.2.1 259 1956 Unknown [id number] 2.16.840.1.721517.3.579.2.1 259 1956 Unknown [id number] 2.16.840.1.350056.3.579.2.1 259 1956 Unknown [id number] 2.16.840.1.769590.3.579.2.1 259 1956 Unknown [id number] 2.16.840.1.231469.3.579.2.1 259 1956 Unknown [id number] 2.16.840.1.613500.3.579.2.1 259 1956 Unknown [id number] 2.16.840.1.638153.3.579.2.1 259 1956 Unknown [id number] 2.16.840.1.889030.3.579.2.1 259 1956 Unknown [id number] 2.16.840.1.272215.3.579.2.1 96 1956 Unknown [id number] 2.16.840.1.976427.3.579.2.1 96 1956 Unknown [id number] 2.16.840.1.447546.3.579.2.1 96 1956 Unknown [id number] 2.16.840.1.602380.3.579.2.7 27 1956 Unknown [id number] 2.16.840.1.816212.3.579.2.7 27 Medicare [id number] Self-pay Self Pay [id number] Unknown [id number] Social History Date Type Detail Facility Tobacco smoking stat us [facility] Unknown if ever smoked [facility] Start: 1955 Sex Assigned At Female F [facility] Start: 09-11-2020 End: 03-24-2025 Tobacco smoking status NHIS Never smoker [facility] Start: 09-11-2020 End: 12-05-2023 Tobacco use and exposure Never used [facility] Start: 09-11-2020 End: 05-19-2025 Alcohol intake Lifetime non-drinker (finding) [facility] Start: 09-11-2020 History SDOH Alcohol Frequency 1 [facility] Start: 1955 Sex Assigned At Not on file C [facility] Start: 10-26-2023 End: 11-25-2024 Sex [...] Start: 02-17-2010 End: 11-13-2024 Sex Female (finding) [facility] How hard is it for y [...] Healthcare Sexual Orientation [facility] NEGATED: Highlighted rowStart: SILVIO History of tobacco use Passive smoker [facility] Goals Date Patient Goal Desired Activity /State Personal health goal Functional Status Date Assessment Result Facility 03-24-2025 Functional Status N/A [facility] 10-15-2024 Functional Status N/A [facility] Clinical Notes 08-30-2021 to 05-19-2025 Telephone Encounter - Kaylene López NP - 05/19/2025 9:26 AM EDTTelephone Encounter - Kaylene López NP - 05/19/2025 9:26 AM EDTHUMBARGEKATE Holland - 05/19/2025 9:00 AM EDTPatient Instructions Note [...] those, if no help let me know [place] [facility] 05-19-2025 Miscellaneous Notes Call patient to [...] I also believe she can get at over the counter so she could try those, if no help let me know LESLIE documented in this encounter [facility] 05-19-2025 History of Present illness Narrative [...] History: Diagnosis Date Alcohol screening Arthritis Asthma (HCC) At moderate risk for fall Benign essential HTN Breast cancer screening by mammogram Chronic back pain greater than 3 months duration Chronic heart failure with preserved ejection fraction (HCC) Chronic kidney disease, stage III (moderate) ([facility]) Chronic obstructive pulmonary disease (COPD) ([facility]) Colon cancer (HCC) Colorectal cancer ([facility]) Contact w and exposure to oth viral communicable diseases COPD exacerbation ([facility]) Coronary artery disease Depression Emphysema, unspecified ([facility]) Encounter for gynecological examination (general) (routine) without abnormal findings Essential (primary) hypertension Exposure to STD Gastroesophageal reflux disease General deterioration of health HPV in female Hyperlipidemia Hyperuricemia Intertrigo Iron deficiency anemia Low back pain Morbid obesity with BMI of 40.0-44.9, adult ([facility]) Osteoporosis screening Pneumonia Positive depression screening Post-menopausal Restless leg syndrome Right hip pain Urge incontinence Vitamin D deficiency Past Surgical History: Procedure Laterality Date BACK SURGERY 2004 CARDIAC CATHETERIZATION Left 06/14/2014 Left Heart-Ventricular Puncture CARDIAC CATHETERIZATION Left 08/13/2018 Left Heart-Ventricular Puncture FOOT SURGERY 09/2015 JOINT REPLACEMENT Left 08/01/2016 Hip replacement REVISION TOTAL HIP ARTHROPLASTY Left 03/[address] LINN SPINAL FUSION 05/07/2003 [facility] TOTAL HIP ARTHROPLASTY Left 08/30/2019 REMOVED TOTAL [...] Morbid (severe) obesity due to excess calories ([facility]) Discussed with patient their BMI [...] Morbid (severe) obesity due to excess calories ([facility]) Discussed with patient their BMI (actual, verses [...] not take any documented in this encounter [facility] 04-09-2025 History of Present illness Narrative Associated Problem(s): Depression ([facility]) Current med paxil Will add on medication 3L Images from the original note were not included. Diana Champion is a 69 y.o. female presents with chief complaint of Hospital Follow-up HPI: Here for hospital follow up: [facility]. Now at home: breathing has [...] Morbid obesity with BMI of 40.0-44.9, adult ([facility]/HCC) Osteoporosis screening Pneumonia Positive depression screening Post-menopausal Restless leg syndrome Right hip pain Urge incontinence Vitamin D deficiency Past Surgical History: Procedure Laterality Date BACK SURGERY 2004 CARDIAC CATHETERIZATION Left 06/14/2014 Left Heart-Ventricular Puncture CARDIAC CATHETERIZATION Left 08/13/2018 Left Heart-Ventricular Puncture FOOT SURGERY 09/2015 JOINT REPLACEMENT Left 08/01/2016 Hip replacement REVISION TOTAL HIP ARTHROPLASTY Left 03/[address] LINN SPINAL FUSION 05/07/2003 [facility] TOTAL HIP ARTHROPLASTY Left 08/30/2019 REMOVED TOTAL [...] This Visit Chronic obstructive pulmonary disease (COPD) ([facility]) Current meds: albuterol nebs and inhaler, trelegy, oxygen Follows with Pulmonology 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 documented in this encounter [facility] 04-09-2025 Instructions Kaylene López NP - 04/09/2025 11:00 AM EDT Will add on med for depression, will call pt w decision documented in this encounter [facility] 03-24-2025 Hospital Discharge instructions Patient Education [...] your health care provider. General instructions Take rcvt-kof-vqkfzsl and prescription medicines only as told by [...] provider. Document Revised: 07/12/2021 Document Reviewed: 07/12/2021 [employer] Patient Education 2023 [employer]. Follow Up Care 10/15/2024 15:05:18 With:JOSE ALEJANDRO MICHAUD, MAG Hester, URL Address: [address] [place] [address] [facility] [address] When:Within 3 Month(s) [facility] 03-24-2025 Note Patient Education Obstetrics and Gynecology [...] health care provider. General instructions ??? Take brit-zje-vysjxro and prescription medicines only as told by [...] drink, and whe (more content not included)... 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 mechanic Edema of both lower extremities Elevate [...] invasive vent at night 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 She's been in and out of [facility] for pneumonia recently. Had echo a [...] breath since then. She has seen her mine car mechanic. Her chest pain is noncardiac. She [...] history of Allergic rhinitis, Anemia, Asthma, Cancer ([facility]), Chronic heart failure with preserved ejection fraction ([facility]), Chronic hypoxic respiratory failure ([facility]), Chronic kidney disease, COPD (chronic obstructive pulmonary disease) ([facility]), Coronary artery disease, Depression, Diabetes mellitus ([facility]), Dyspnea, GERD (gastroesophageal reflux disease), Hyperlipidemia, Lumbar spondylosis, Other secondary pulmonary hypertension ([facility]), Pneumonia, Primary osteoarthritis of right hip, Pulmonary [...] mouth every other day., Disp: , Rfl: uuokbvsothy-ciiyhlxbr-rxodprka 100-62.5-25 mcg blister with device, , Disp: [...] mg tablet, YOKO (more content not included)... [facility] 01-16-2025 History of Present illness Narrative [...] new atb and sputum result. 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 Images from the [...] chills, +weakness, has home health Nurse from [facility] coming today, not sure if any [...] ferrous sulfate 325 mg, Daily with breakfast Blepwiwibpc-Fgziuvckj-Sehnvx (Trelegy Ellipta) 200-62.5-25 MCG/ACT aerosol powder 1 [...] History: Diagnosis Date Alcohol screening Arthritis Asthma ([facility]) At moderate risk for fall Benign essential HTN ([facility]) Breast cancer screening by mammogram Chronic back pain greater than 3 months duration Chronic heart failure with preserved ejection fraction ([facility]) Chronic kidney disease, stage III (moderate) (HCC) ([facility]) Chronic obstructive pulmonary disease (COPD) ([facility]) Colon cancer ([facility]) Colorectal cancer ([facility]) Contact w and exposure to oth viral communicable diseases COPD exacerbation ([facility]/HCC) Coronary artery disease ([facility]) Depression ([facility]) Emphysema, unspecified ([facility]) Encounter for gynecological examination (general) (routine) without abnormal findings Essential (primary) hypertension ([facility]) Exposure to STD Gastroesophageal reflux disease General deterioration of health HPV in female Hyperlipidemia ([facility]CC) Hyperuricemia Intertrigo Iron deficiency anemia Low back pain Morbid obesity with BMI of 40.0-44.9, adult ([facility]) Osteoporosis screening Pneumonia Positive depression [...] 03/[address] LINN SPINAL FUSION 05/07/2003 [facility] TOTAL HIP ARTHROPLASTY Left 08/30/2019 REMOVED TOTAL [...] stage 3a (HCC) (CMS/HCC) Monitor labs Depression (CMS/HCC) Relevant Medications PARoxetine (Paxil) 40 MG tablet [...] Noted on ECHO findings 05/29 Essential hypertension (CMS/HCC) DASH diet Limit caffeine Contact office if chest pain, pressure, dizziness, shortness of breath, swelling legs Recommend slow position changes Current meds: does not take any Severe persistent asthma, uncomplicated (CMS/HCC) Is under the care of dr mcclain Current meds for treatment of asthma/COPD: albuterol, trelegy, singulair Chronic respiratory failure with hypoxia (CMS/HCC) Is oxygen dependant Screening mammogram for breast cancer Relevant Orders Bilateral screening mammogram Pneumonia due to infectious organism - Primary Respiratory panel: culture pseudomonas Was sent home on doxy, will have her stop this, and start levoquin 750mg daily for 7 day Recent hospitalization to [facility]: back to back, 01/02/25 and 01/08/25 [...] (CMS/HCC) Monitor labs Used to see dr bermudez, [...] significantly elevated right sided pressure at 65 [facility] Cardiology Associated Problem(s): Severe persistent asthma, uncomplicated (CMS/HCC) Is under the care of dr mcclain Current meds for treatment of asthma/COPD: albuterol, trelegy, singulair Associated Problem(s): Pneumonia due to infectious organism Respiratory panel: culture pseudomonas Was sent home on doxy, will have her stop this, and start levoquin 750mg daily for 7 day Recent hospitalization to [facility]: back to back, 01/02/25 and 01/08/25 I have reviewed her hospital notes, labs, discharge info as well Associated Problem(s): Chronic respiratory failure with hypoxia (CMS/HCC) Is oxygen dependant, non invasive vent at night samsa documented in this encounter [facility] 01-16-2025 Instructions Kaylene López NP - [...] OT for home documented in this encounter [facility] 01-15-2025 History of Present illness Narrative Associated Problem(s): Pneumonia due to infectious organism Respiratory panel: culture pseudomonas Was sent home on doxy, will have her stop this, and start levoquin 750mg daily for 7 day documented in this encounter [facility] 01-02-2025 History of Present illness Narrative Associated Problem(s): Flu-like symptoms Neg, still strong clinical suspicion for flu, d/t severe pulmonary conditions and weakness will send her to [facility] ER for evaluation DD: pneumonia, covid, flu, RSV Associated Problem(s): Chronic respiratory failure with hypoxia (CMS/HCC) Oxygen level 88-90% w walking, normal 94-95% w oxygen Associated Problem(s): Chronic obstructive pulmonary disease (COPD) ([facility]) 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 mine car mechanic Flu Symptoms This is a new [...] ferrous sulfate 325 mg, Daily with breakfast Igaxpnvxlyi-Thzkghnsr-Gekvbi (Trelegy Ellipta) 200-62.5-25 MCG/ACT aerosol powder 1 [...] Morbid obesity with BMI of 40.0-44.9, adult ([facility]) Osteoporosis screening Pneumonia Positive depression [...] 03/[address] LINN SPINAL FUSION 05/07/2003 [facility] TOTAL HIP ARTHROPLASTY Left 08/30/2019 REMOVED TOTAL [...] Visit Chronic obstructive pulmonary disease (COPD) (CMS/HCC) 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 We have also discussed lifestyle modifications: attempts to perform physical activity as chronic conditions allow, also to monitor dietary intake: increasing protein/fruits/veggies and lowering carb intake (unless contraindicated). Limit sodas, juices, and sugary drinks. Essential hypertension ([facility]/HCC) DASH diet Limit caffeine Contact office [...] conditions and weakness will send her to [facility] ER for evaluation DD: pneumonia, covid, [...] not take any documented in this encounter [facility] 12-17-2024 History of Present illness [...] Visit: 6 months documented in this encounter [facility] 12-17-2024 History of Present illness Narrative Images from the original note were not included. HISTORY OF PRESENT ILLNESS: EST PT Diana Champion is an 69 y.o. @ female. EST PT HERE FOR YEARLY REACHECK RT TKA ~6YRS 2MO (10/18/18) - XRAY RT KNEE & RT HIP TODAY EPIC 12/17/24 XRAY EXA 11/16/22 XRAY WILL WALLER (EXA) 11/18/20 NO BONE SCAN NO [...] ferrous sulfate 325 mg, Daily with breakfast Voatysrtcrp-Jbjdvhlfw-Baitze (Trelegy Ellipta) 200-62.5-25 MCG/ACT aerosol powder 1 [...] be necessary. Pt will consult with her Swabber to see if she would be a [...] requiring urgent evaluation. documented in this encounter [facility] 12-13-2024 History of Present illness [...] skin of chest Chest - Medial (Center) Hyder macule at the biopsy site. Destr of lesion Complexity: simple Destruction method: cryotherapy Informed consent: discussed and consent obtained Informed consent comment: The risks of the procedure were discussed, including, but not limited to risks of scarring, darker or ham smoker pigmentary changes, recurrence, infection, and incomplete removal [...] or tenderness. Additional details: Previous accession number: [id number] Discussed treatment options excision vs cryotherapy in detail. Patient opted for cryotherapy. Cryotherapy completed today, see procedure note. Return to clinic prior to next scheduled visit for any signs or symptoms of recurrence, reviewed the signs and symptoms. Recommended 6 month skin exam. Next Visit: as scheduled documented in this encounter [facility] 11-28-2024 History of Present illness Narrative Associated Problem(s): Chronic obstructive pulmonary disease (COPD) ([facility]) Was admitted to [facility] for COPD with acute exacerbation. Was [...] for Hospital Follow-up. HPI Was admitted to [facility] for COPD with acute exacerbation. Was [...] This Visit Chronic obstructive pulmonary disease (COPD) ([facility]) - Primary Was admitted to [facility] for COPD with acute exacerbation. Was [...] hospital follow up. documented in this encounter [facility] 11-28-2024 Instructions Aida Reese NP - 11/28/2024 1:[address] Mcclain's office to see if he wants to see you for hospital follow up sooner than January. Take and finish all medications as directed. documented in this encounter [facility] 11-12-2024 History of Present illness Narrative Associated Problem(s): Chronic obstructive pulmonary disease (COPD) ([facility]) 5 days ago woke up, [...] 1 g tablet documented in this encounter [facility] 11-12-2024 Instructions Aida Reese NP [...] NEAREST EMERGENCY DEPARTMENT. documented in this encounter [facility] 10-17-2024 Note Attestation signed by [...] Age: 69 y.o. : 1955 Account No.: [id number] Referring physician: Dr. Bo Mcclain Chief complaint: Recurreny pneumonia HPI Diana Champion is a 69 y.o. female with PMHx of chronic hypoxic respiratory failure on 3L home O2, tracheobronchomalacia who is presenting to clinic for follow up. Patient was previously referred by Dr. Bo Mcclain of [facility] in June of 2024. Patient had been having frequent pneumonias requiring hospitalization thought to be secondary to dynamic airway collapse. Therefore we performed bronchoscopy with airway inspection on 07/02/2024 which showed severe tracheobronchomalacia with mucous plugging. She subsequently followed up post procedure and different treatment options were discussed. She was hesitant to undergo APC or tracheal bronchoplasty at [facility] and instead opted to trial CPAP [...] years. 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 Her family history is positive [...] Chronic heart failure with preserved ejection fraction ([facility]) Chronic hypoxic respiratory failure ([facility]) Chronic kidney disease COPD (chronic obstructive pulmonary disease) ([facility]) Coronary artery disease Depression Diabetes mellitus ([facility]) Dyspnea GERD (gastroesophageal reflux disease) Hyperlipidemia Lumbar spondylosis Other secondary pulmonary hypertension ([facility]) Pneumonia Primary osteoarthritis of right [...] mg by bessie (more content not included)... [facility] 10-15-2024 Hospital Discharge instructions Patient [...] your health care provider. General instructions Take vuro-scw-nmfoqsv and prescription medicines only as told by [...] provider. Document Revised: 07/12/2021 Document Reviewed: 07/12/2021 [employer] Patient Education 2023 [employer]. Follow Up Care 10/11/2024 14:37:09 With:JOSE ALEJANDRO MICHAUD, MAG Hester, URL Address: [address] [place] [address] When:Within 3 Month(s) [facility] 10-15-2024 Note Urology Office/Clini c Note Chief [...] 235.894 lb BMI: 40.27 Assessment/Plan CHF - [facility] CKD - Joana COPD/Pulm - Samsa/Omballi. [...] could include cysto, urodynamics, Botox, SNM. Orders: [id number] Measure Post Void residual urine and/or bladder capacity by US- non-imaging E&M of New Patient Moderate 45-59 Min 37039 Urine Culture Urnls Dip Stick Auto w/o Microscopy POC 98423 Follow-up With When Contact Information MAG BLOUNT PA-C, URL In 3 months [address] [place] [address] Additional Instructions: Patient Education Overactive [...] drop(s) Allergies f (more content not included)... [facility] Comment on above: [...] health care provider. General instructions ??? Take dhyo-mlc-ndsrmmd and prescription medicines only as told by [...] drink, and whe (more content not included)... [facility] 10-11-2024 History of Present illness [...] pending biopsy results documented in this encounter [facility] 10-07-2024 History of Present illness [...] III (moderate) (HCC) (CMS/HCC) Follows with Dr. Bermudez. Monitor CMP, avoid nephrotoxic agents. Associated Problem(s): [...] Pulmonology- Dr. Mcclain and Dr. Yoo Cardiology- [facility] Ortho- Dr. Corrales Nephrology- Dr. Sky [...] III (moderate) (HCC) (CMS/HCC) Follows with Dr. Bermudez. Monitor CMP, avoid nephrotoxic agents. Morbid obesity with BMI of 40.0-44.9, adult ([facility]) Discussed with patient their BMI (actual, verses recommended). We have also discussed lifestyle modifications: attempts to perform physical activity as chronic conditions allow, also to monitor dietary intake: increasing protein/fruits/veggies and lowering carb intake (unless contraindicated). Limit sodas, juices, and sugary drinks. Urge incontinence - Primary Relevant Orders Ambulatory referral to Urology Chronic respiratory failure with hypoxia ([facility]) Following closely with Dr. Mcclain. [...] referral to Dermatology documented in this encounter [facility] 09-03-2024 Telephone encounter Note Pt requesting a refill on her Omeprazole BECK:08/19/2024 NOV:10/09/2024 [facility] 09-03-2024 Miscellaneous Notes Pt requesting a refill on her Omeprazole BECK:08/19/2024 NOV:10/09/2024 documented in this encounter [facility] 08-22-2024 Telephone encounter Note Patient called in saying you wanted her to do a stool sample, but she has not gotten an order for that, so she wasn't sure when she was supposed to do that. Also her pregabalin needs refilled but she said that kareen had a hard time getting it in last time. [facility]N [facility] 08-22-2024 Miscellaneous Notes Patient called [...] spelled that right) nurse phone number is [phone] or you can contact patient she said. MAYANK documented in this encounter [facility] 08-19-2024 History of Present illness Narrative Last Monday left hospital and has been having diarrhea about 6 times a day. Images from the original note were not included. Subjective Patient ID: Diana Champion is a 69 y.o. female who presents for No chief complaint on file.. [facility] Hospital follow up; Was seen at [facility] 08/08/24-08/12/24 ARF; Was discharged home on [...] This Visit Moderate persistent asthma with exacerbation (CMS/[facility]) - Primary Other Visit Diagnoses Diarrhea, unspecified type Relevant Orders Clostridium difficile,EIA documented in this encounter [facility] 08-19-2024 Instructions Aida Reese NP - 08/19/2024 11:30 AM EDT Continue Augmentin. Start taking OTC probiotics Have stool culture completed to test for C.Difficile. If negative continue ATB regimen as directed. If positive we will treat accordingly. Keep all follow up appointments as scheduled. documented in this encounter [facility] 08-13-2024 Note Gram Stain Evaluation This specimen is of good quality and is acceptable for routine [facility] 08-13-2024 Note [facility] GRAM STAIN EVALUATION bacterial culture. [facility] 08-13-2024 Telephone encounter Note Patient's home [...] spelled that right) nurse phone number is [phone] or you can contact patient she said. [facility] 07-16-2024 Telephone encounter Note Pt informed of lab results and provider recommendations. Pt does do chair exercises four times a week and walks (with walker) but due to her health conditions she is limited. Pt is in a wheelchair with very limited ambulation -SCR [facility] 07-16-2024 Miscellaneous Notes Pt informed [...] Aida Reese NP documented in this encounter [facility] 07-16-2024 Telephone encounter Note ----- [...] 9:29 AM EDT To: Aida Reese NP [facility] 07-11-2024 Note Attestation signed by [...] Age: 68 y.o. : 1955 Account No.: [id number] [facility] Chief Complaint: follow up after recent [...] years. 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 Verbal consent to provide and bill this service was obtained on: 07/11/24 No signature was obtained due to the COVID-19 pandemic. Past Medical History: Diagnosis Date Allergic rhinitis Anemia Asthma Cancer ([facility]) Chronic heart failure with preserved ejection fraction ([facility]) Chronic hypoxic respiratory failure ([facility]) Chronic kidney disease COPD (chronic obstructive pulmonary disease) ([facility]) Coronary artery disease Depression Diabetes mellitus ([facility]) Dyspnea GERD (gastroesophageal reflux disease) Hyperlipidemia Lumbar spondylosis Other secondary pulmonary hypertension ([facility]) Pneumonia Primary osteoarthritis of right [...] 4 TO 6 HOURS NEEDED Historical Provider, MD albuterol 90 mcg/actuation inhaler INHALE 2 PUFFS [...] by mouth every other day. Historical Provider, clyticxpzmv-rfectjwic-lzpnypcb 100-62.5-25 mcg blister with device Historical Provider, [...] (Theragran-M) 9 mg (more content not included)... [facility] 07-11-2024 History of Present illness Narrative Associated Problem(s): Morbid obesity with BMI of 40.0-44.9, adult (CMS/[facility]) Discussed with patient their BMI (actual, verses recommended). We have also discussed lifestyle modifications: attempts to perform physical activity as chronic conditions allow, also to monitor dietary intake: increasing protein/fruits/veggies and lowering carb intake (unless contraindicated). Limit sodas, juices, and sugary drinks. Associated Problem(s): Severe persistent asthma without complication (CMS/[facility]) Currently taking Trelegy Singulair Albuterol Was seen on 06/12/24 for Hospital follow up. Is following closely with Pulmonology; Tracheobronchomalacia Associated Problem(s): Hyperlipidemia (CMS/HCC) Currently not on any medications: Lifestyle and dietary modifications. Recheck lipid pane today. Associated Problem(s): Chronic heart failure with preserved ejection fraction (CMS[facility]HCC) [facility] Lasix 20mg Associated Problem(s): Benign essential HTN (CMS/HCC) Currently not taking any medications. Bp is well controlled. Averages 120's-130's. Images from the original note were not included. Subjective Patient ID: Diana Champion is a 68 y.o. female who presents for Follow-up. HPI Specialists: Pulmonology- Dr. Mcclain and Dr. Yoo Cardiology- [facility] Ortho- Dr. Corrales Nephrology- Dr. Sky Was seeing Urology 5 years ago for urinary retention. Now is having mixed incontinence. Does not want referral today, would like to revisit at next visit. Was seen on 06/12/24 for Hospital follow up. Is following closely with Pulmonology; Tracheobronchomalacia HTN: Currently not taking any medications. Bp is well controlled. Averages 120's-130's. HFpEF: Follows [facility] Was seen in May 2024 Lasix [...] with preserved ejection fraction (CMS/HCC) Follows Cardiology- [facility] Was seen in May 2024 Lasix 20mg Relevant Orders Comprehensive metabolic panel CBC and differential Hyperlipidemia (CMS/HCC) Currently not on any medications: Lifestyle and dietary modifications. Recheck lipid pane today. Relevant Orders Lipid panel Comprehensive metabolic panel CBC and differential Morbid obesity with BMI of 40.0-44.9, adult ([facility]) Discussed with patient their BMI (actual, verses recommended). We have also discussed lifestyle modifications: attempts to perform physical activity as chronic conditions allow, also to monitor dietary intake: increasing protein/fruits/veggies and lowering carb intake (unless contraindicated). Limit sodas, juices, and sugary drinks. Relevant Orders Comprehensive metabolic panel CBC and differential Severe persistent asthma without complication ([facility]) Currently taking Trelegy Singulair Albuterol Was seen on 06/12/24 for Hospital follow up. Is following closely with Pulmonology; Tracheobronchomalacia documented in this encounter [facility] 07-11-2024 Instructions Aida Reese NP - 07/11/2024 8:30 AM EDT FASTING labs ordered. Nothing to eat or drink for 12 hours prior to blood draw. Water and black coffee ok. documented in this encounter [facility] 07-02-2024 Note Patient: Yannick Champion Pre-sedation Evaluation: Sedation necessary for: Analgesia Requesting service: Pulmonary History of Present Illness: Refer to H &P DATA ENTRY/Current Medications: Reviewed Recent sedation/surgery (24 hours): No Review of Systems: Negative NPO guidelines met: Yes Physical Exam: Airway Mallampati: II Neck ROM: full Cardiovascular (-) murmur, friction rub, carotid bruits Dental Pulmonary (+) on nasal cannula (-) tachypnea, accessory muscle use (-) wheezes, rales Plan: ASA 3 Moderate Proceed with consious sedation for Bronchoscopy and BAL [facility] 07-02-2024 Note Attestation signed by Ghulam [...] chronic cough POSTPROCEDURE DIAGNOSIS: Severe tracheobronchomalacia PROCEDURE CEMENT HANDLER: Goran Canseco ATTENDING PHYSICIAN: Dr. Ghulam Petersen [...] by trained RN and supervised by the Swabber. Continuous monitoring of heart rate, respiratory rate, [...] 1-2 weeks for treatment options for tracheobronchomalacia [facility] 06-25-2024 Note Attestation signed by [...] Age: 68 y.o. : 1955 Account No.: [id number] Referring physician: Dr. Bo Mcclain Chief complaint: Recurreny pneumonia HPI Diana Champion is a 68 y.o. female with PMHx of reportedly COPD, chronic hypoxic respiratory failure on 2L home O2 who is presenting to clinic as a new patient after being referred by Dr. Bo Baker of [facility]. Patient has been admitted 4 times [...] years. 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 Yes Historical Provider, sgsadoesjpw-eblpjffts-adroctub 100-62.5-25 mcg blister with device Yes Historical [...] mEq ER ta (more content not included)... [facility] 05-13-2024 Note [facility] Cardiology Clinic Note Chief Complaint: Patient here for 1 year follow up CAD and hypertension. She was recently discharged from [facility] for Covid-19. She says hydrochlorothiazide was [...] breath since then. She has seen her mine car mechanic. Her chest pain is noncardiac. She [...] a past medical history of Asthma, Cancer ([facility]), COPD (chronic obstructive pulmonary disease) ([facility]), Coronary artery disease, GERD (gastroesophageal [...] mouth every other day., Disp: , Rfl: egydhotfazm-lwpapmdwd-tasosqaz 100-62.5-25 mcg blister with device, , Disp: [...] Examination: GENERAL: a (more content not included)... [facility] 09-07-2023 Evaluation note Encounter Date Diagnosis Assessment Notes Sep, Hypomagnesemia (ICD-10 - E83.42) [facility] Other 10-23-2023 Evaluation note* Encounter Date Diagnosis Assessment Notes Treatment Notes Treatment Clinical Notes Aug, Nico garsia kid I-IV (ICD-10 - I12.9) [facility] Other 10-12-2023 Evaluation note* Encounter Date Diagnosis [...] PPI induced GI losses. Continue oral Magnesium [facility] Other 05-19-2023 NotePROCEDURE: XR HIP RT 2 3V W PELVIS HISTORY: Pain in right hip joint , chronic COMPARISON: XR L-spine 02/26/2019, XR left hip with pelvis 03/11/2017 FINDINGS: BONES:Complete loss of the right hip joint space with vlbc-om-ulad articulation, subchondral sclerosis and cysts, and large periarticular degenerative osteophytes. No fracture or dislocation. Left hip replacement. Mechanical fusion of L5-S1 and moderate dextroscoliosis of lumbar spine. SOFT TISSUES:No visible soft tissue swelling. EFFUSION:None visible. OTHER: Negative. IMPRESSION: 1. Marked degenerative joint disease of the right hip; progressed since prior study. 2. Stable surgical changes. Electronically authenticated by: STEPH GRANADOS Date: 2023-03-24 12:55[facility]04-27-2023 Evaluation note* Encounter Date Diagnosis Assessment [...] PPI induced GI losses. Continue oral Magnesium [facility] Encounter Date Diagnosis Assessment Notes Treatment Notes Treatment Clinical Notes Nov, Hypokalemia (ICD-10 - E87.6) Nov, Hypomagnesemia (ICD-10 - E83.42) [facility] Other 10-04-2022 Evaluation note* Encounter Date Diagnosis [...] office does not accept her new insurance. [facility] Other 09-02-2022 Evaluation note* Encounter Date Diagnosis Assessment Notes Treatment Notes Treatment Clinical Notes Jul, History of colon cancer (ICD-10 - Z85.038) [facility] Other 01-12-2022 Evaluation note* Encounter Date Diagnosis [...] potassium wasting. I have prescribed oral potassium. [facility] Other 10-25-2021 Evaluation note* Encounter Date Diagnosis [...] Patient care instructions given in writting by [facility] Care At Home document [facility] Other Evaluation + Plan note Future Appointments Appointment Date:01/13/2025 09:40:00 AM Scheduled Provider:MAG BLOUNT PA-C Location:[facility] Appointment Type:URO Office Visit Diagnostic Tests Pending * Urine Culture 10/15/24 [facility] Evaluation + Plan note Future Appointments Appointment Date:01/13/2025 09:40:00 AM Scheduled Provider:MAG BLUONT PA-C Location:[facility] Appointment Type:URO Office Visit [facility] evaluation + Plan note Future Appointments Appointment Date:06/23/2025 09:40:00 AM Scheduled Provider:MAG BLOUNT PA-C Location:[facility] Appointment Type:URO Office Visit [facility] evaluation + Plan note Future Appointments Appointment Date:07/08/2025 02:30:00 PM Scheduled Provider:Amalia Stephens PA-C Location:[facility] Appointment Type:URO Office Visit [facility] evaluation noteNo [employer] Other Evaluation note* Diagnosis Onset Date Resolution Status History of colon cancer acut e [facility] Work Phone: Evaluation note* Diagnosis Onset Date Resolution Status Hypokalemia acute Hypomagnesemia acute Stage 3 chronic kidney disease acute COVID noneactive Pneumonia noneactive [facility] Work Phone: Evaluation note* Diagnosis Moderate persistent asthma with exacerbation ([facility]/HCC)- Primary Unspecified asthma, with exacerbation Non-recurrent acute suppurative otitis media of both ears without spontaneous rupture of tympanic membranes Colorectal cancer ([facility]/HCC) Malignant neoplasm of colon, unspecified site Chronic heart failure with preserved ejection fraction (CMS/HCC) Pulmonary emphysema, unspecified emphysema type (CMS/HCC) Moderate episode of recurrent major depressive disorder (CMS/HCC)- Primary Moderate persistent asthma with exacerbation (CMS/HCC) Unspecified asthma, with exacerbation Medicare annual wellness visit, subsequent Severe persistent asthma with acute exacerbation ([facility]/HCC)- Primary Hospital discharge follow-up Other follow-up [...] Morbid obesity with BMI of 40.0-44.9, adult ([facility]) Hospital discharge follow-up- Primary Other follow-up examination Chronic respiratory failure with hypoxia (CMS/HCC) Severe persistent asthma without complication (CMS/HCC) Severe persistent asthma with acute exacerbation (CMS/HCC)- Primary Severe persistent asthma with exacerbation (CMS/HCC)- Primary Unspecified asthma, with exacerbation Hospital discharge follow-up- Primary Other follow-up examination Chronic respiratory failure with hypoxia ([facility]/HCC)- Primary Hospital discharge follow-up Other follow-up examination Benign essential HTN ([facility]/HCC) Chronic heart failure with preserved ejection fraction (CMS/HCC) Severe persistent asthma without complication (CMS/HCC) Moderate mixed hyperlipidemia not requiring statin therapy ([facility]) Morbid obesity with BMI of 40.0-44.9, adult ([facility]) Opioid use Chronic, continuous use of opioids Chronic back pain greater than 3 months duration Moderate persistent asthma with exacerbation ([facility]/HCC)- Primary Unspecified asthma, with exacerbation Diarrhea, unspecified type documented in this encounter [facility] HealthcareEvaluation note* Diagnosis Moderate persistent asthma with exacerbation ([facility]/HCC)- Primary Unspecified asthma, with exacerbation Non-recurrent acute suppurative otitis media of both ears without spontaneous rupture of tympanic membranes Colorectal cancer ([facility]) Malignant neoplasm of colon, unspecified site Chronic heart failure with preserved ejection fraction ([facility]) Pulmonary emphysema, unspecified emphysema type ([facility]) Moderate episode of recurrent major depressive disorder ([facility])- Primary Moderate persistent asthma with exacerbation ([facility]) Unspecified asthma, with exacerbation Medicare annual wellness visit, subsequent Severe persistent asthma with acute exacerbation ([facility])- Primary Hospital discharge follow-up Other follow-up examination Severe persistent asthma without complication (CMS/HCC)- Primary Essential hypertension ([facility]) Unspecified essential hypertension JEANNE (acute kidney injury) ([facility]) Leukocytosis, unspecified type Chronic respiratory failure with hypoxia ([facility]) Chronic bilateral low back pain without sciatica- Primary Vitamin D deficiency Chronic bilateral low back pain without sciatica- Primary Pneumonia due to infectious organism, unspecified laterality, unspecified part of lung- Primary Screening mammogram for breast cancer Chronic respiratory failure with hypoxia ([facility]) Pulmonary emphysema, unspecified emphysema type ([facility]/HCC) Essential hypertension ([facility]) Unspecified essential hypertension Morbid obesity with BMI of 40.0-44.9, adult ([facility]) Hospital discharge follow-up- Primary Other follow-up examination Chronic respiratory failure with hypoxia (CMS/HCC) Severe persistent asthma without complication ([facility]/HCC) Severe persistent asthma with acute exacerbation ([facility]/HCC)- Primary Severe persistent asthma with exacerbation ([facility])- Primary Unspecified asthma, with exacerbation Hospital discharge follow-up- Primary Other follow-up examination Chronic respiratory failure with hypoxia ([facility]/HCC)- Primary Hospital discharge follow-up Other follow-up examination Benign essential HTN (CMS/HCC) Chronic heart failure with preserved ejection fraction ([facility]/HCC) Severe persistent asthma without complication (CMS/HCC) Moderate mixed hyperlipidemia not requiring statin therapy ([facility]) Morbid obesity with BMI of 40.0-44.9, adult ([facility]) Opioid use Chronic, continuous use of opioids Chronic back pain greater than 3 months duration Restless leg syndrome Restless legs syndrome (RLS) documented in this encounter [facility] HealthcareEvaluation note* Diagnosis Moderate persistent asthma with exacerbation ([facility]/HCC)- Primary Unspecified asthma, with exacerbation Non-recurrent acute suppurative otitis media of both ears without spontaneous rupture of tympanic membranes Colorectal cancer ([facility]) Malignant neoplasm of colon, unspecified site Chronic heart failure with preserved ejection fraction ([facility]) Pulmonary emphysema, unspecified emphysema type ([facility]) Moderate episode of recurrent major depressive disorder ([facility])- Primary Moderate persistent asthma with exacerbation ([facility]) Unspecified asthma, with exacerbation Medicare annual wellness visit, subsequent Severe persistent asthma with acute exacerbation ([facility])- Primary Hospital discharge follow-up Other follow-up examination Severe persistent asthma without complication (CMS/HCC)- Primary Essential hypertension ([facility]/HCC) Unspecified essential hypertension JEANNE (acute kidney injury) ([facility]) Leukocytosis, unspecified type Chronic respiratory failure with hypoxia ([facility]/HCC) Chronic bilateral low back pain without sciatica- Primary Vitamin D deficiency Chronic bilateral low back pain without sciatica- Primary Pneumonia due to infectious organism, unspecified laterality, unspecified part of lung- Primary Screening mammogram for breast cancer Chronic respiratory failure with hypoxia (CMS/HCC) Pulmonary emphysema, unspecified emphysema type ([facility]/HCC) Essential hypertension ([facility]/HCC) Unspecified essential hypertension Morbid obesity with BMI of 40.0-44.9, adult ([facility]) Hospital discharge follow-up- Primary Other follow-up examination Chronic respiratory failure with hypoxia (CMS/HCC) Severe persistent asthma without complication ([facility]/HCC) Severe persistent asthma with acute exacerbation ([facility]/HCC)- Primary Severe persistent asthma with exacerbation ([facility]/HCC)- Primary Unspecified asthma, with exacerbation Hospital discharge follow-up- Primary Other follow-up examination Chronic respiratory failure with hypoxia (CMS/HCC)- Primary Hospital discharge follow-up Other follow-up examination Benign essential HTN (CMS/HCC) Chronic heart failure with preserved ejection fraction (CMS/HCC) Severe persistent asthma without complication (CMS/HCC) Moderate mixed hyperlipidemia not requiring statin therapy (CMS/HCC) Morbid obesity with BMI of 40.0-44.9, adult ([facility]) Opioid use Chronic, continuous use of opioids Chronic back pain greater than 3 months duration Gastroesophageal reflux disease without esophagitis Esophageal reflux documented in this encounter [facility] HealthcareEvaluation noteNo assessment information [facility] Work Phone: Evaluation note* Diagnosis [...] subsequent Severe persistent asthma with acute exacerbation ([facility]/HCC)- Primary Hospital discharge follow-up Other follow-up [...] Morbid obesity with BMI of 40.0-44.9, adult ([facility]) Hospital discharge follow-up- Primary Other follow-up examination Chronic respiratory failure with hypoxia (CMS/HCC) Severe persistent asthma without complication (CMS/HCC) Severe persistent asthma with acute exacerbation (CMS/HCC)- Primary Severe persistent asthma with exacerbation ([facility]/HCC)- Primary Unspecified asthma, with exacerbation Hospital discharge follow-up- Primary Other follow-up examination Chronic respiratory failure with hypoxia (CMS/HCC)- Primary Hospital discharge follow-up Other follow-up examination Benign essential HTN (CMS/HCC) Chronic heart failure with preserved ejection fraction (CMS/HCC) Severe persistent asthma without complication (CMS/HCC) Moderate mixed hyperlipidemia not requiring statin therapy (CMS/HCC) Morbid obesity with BMI of 40.0-44.9, adult ([facility]) Opioid use Chronic, continuous use of opioids Chronic back pain greater than 3 months duration Vaginal guero- Primary Candidiasis of vulva and vagina documented in this encounter [facility] HealthcareEvaluation note* Diagnosis Moderate persistent [...] Morbid obesity with BMI of 40.0-44.9, adult ([facility]) Hospital discharge follow-up- Primary Other [...] Morbid obesity with BMI of 40.0-44.9, adult ([facility]) Opioid use Chronic, continuous use of opioids Chronic back pain greater than 3 months duration Restless leg syndrome Restless legs syndrome (RLS) documented in this encounter [facility] HealthcareEvaluation note* Diagnosis Moderate persistent [...] subsequent Severe persistent asthma with acute exacerbation ([facility]/HCC)- Primary Hospital discharge follow-up Other follow-up [...] emphysema, unspecified emphysema type (CMS/HCC) Essential hypertension ([facility]/HCC) Unspecified essential hypertension Morbid obesity with BMI of 40.0-44.9, adult ([facility]) Hospital discharge follow-up- Primary Other [...] Morbid obesity with BMI of 40.0-44.9, adult ([facility]/HCC) Opioid use Chronic, continuous use of opioids Chronic back pain greater than 3 months duration Urge incontinence- Primary Morbid obesity with BMI of 40.0-44.9, adult ([facility]) 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 Stage 3a chronic kidney disease (HCC) (CMS/HCC) Chronic respiratory failure with hypoxia (CMS/HCC) documented in this encounter [facility] HealthcareEvaluation note* Diagnosis Moderate persistent [...] Morbid obesity with BMI of 40.0-44.9, adult ([facility]) Hospital discharge follow-up- Primary Other [...] Morbid obesity with BMI of 40.0-44.9, adult ([facility]/HCC) Opioid use Chronic, continuous use of opioids Chronic back pain greater than 3 months duration Urge incontinence- Primary Morbid obesity with BMI of 40.0-44.9, adult ([facility]/HCC) 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 Stage 3a chronic kidney disease (HCC) (CMS/HCC) Chronic respiratory failure with hypoxia (CMS/HCC) Neoplasm of unspecified behavior of bone, soft tissue, and skin- Primary documented in this encounter [facility] HealthcareEvaluation note* Diagnosis Moderate persistent asthma with exacerbation (CMS/HCC)- Primary Unspecified asthma, with exacerbation Non-recurrent acute suppurative otitis media of both ears without spontaneous rupture of tympanic membranes Colorectal cancer ([facility]/HCC) Malignant neoplasm of colon, unspecified site Chronic heart failure with preserved ejection fraction (CMS/HCC) Pulmonary emphysema, unspecified emphysema type (CMS/HCC) Moderate episode of recurrent major depressive disorder (CMS/HCC)- Primary Moderate persistent asthma with exacerbation ([facility]/HCC) Unspecified asthma, with exacerbation Medicare annual wellness visit, subsequent Severe persistent asthma with acute exacerbation ([facility]/HCC)- Primary Hospital discharge follow-up Other follow-up examination Severe persistent asthma without complication (CMS/HCC)- Primary Essential hypertension (CMS/HCC) Unspecified essential hypertension JEANNE (acute kidney injury) (CMS/[facility]) Leukocytosis, unspecified type Chronic respiratory failure with hypoxia (CMS/HCC) Chronic bilateral low back pain without sciatica- Primary Vitamin D deficiency Chronic bilateral low back pain without sciatica- Primary Pneumonia due to infectious organism, unspecified laterality, unspecified part of lung- Primary Screening mammogram for breast cancer Chronic respiratory failure with hypoxia (CMS/HCC) Pulmonary emphysema, unspecified emphysema type (CMS/HCC) Essential hypertension ([facility]/HCC) Unspecified essential hypertension Morbid obesity with BMI of 40.0-44.9, adult ([facility]) Hospital discharge follow-up- Primary Other follow-up examination Chronic respiratory failure with hypoxia (CMS/HCC) Severe persistent asthma without complication (CMS/HCC) Severe persistent asthma with acute exacerbation (CMS/HCC)- Primary Severe persistent asthma with exacerbation (CMS/HCC)- Primary Unspecified asthma, with exacerbation Hospital discharge follow-up- Primary Other follow-up examination Chronic respiratory failure with hypoxia (CMS/HCC)- Primary Hospital discharge follow-up Other follow-up examination Benign essential HTN ([facility]/HCC) Chronic heart failure with preserved ejection fraction (CMS/HCC) Severe persistent asthma without complication (CMS/HCC) Moderate mixed hyperlipidemia not requiring statin therapy (CMS/HCC) Morbid obesity with BMI of 40.0-44.9, adult ([facility]) Opioid use Chronic, continuous use of opioids Chronic back pain greater than 3 months duration Urge incontinence- Primary Morbid obesity with BMI of 40.0-44.9, adult ([facility]) 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 Stage 3a chronic kidney disease (HCC) ([facility]) Chronic respiratory failure with hypoxia ([facility]) Urge incontinence documented in this encounter [facility] HealthcareEvaluation note* Diagnosis Moderate persistent asthma with exacerbation ([facility]/HCC)- Primary Unspecified asthma, with exacerbation Non-recurrent acute suppurative otitis media of both ears without spontaneous rupture of tympanic membranes Colorectal cancer ([facility]) Malignant neoplasm of colon, unspecified site Chronic heart failure with preserved ejection fraction ([facility]/HCC) Pulmonary emphysema, unspecified emphysema type ([facility]/HCC) Moderate episode of recurrent major depressive disorder ([facility])- Primary Moderate persistent asthma with exacerbation ([facility]) Unspecified asthma, with exacerbation Medicare annual wellness visit, subsequent Severe persistent asthma with acute exacerbation ([facility]/HCC)- Primary Hospital discharge follow-up Other follow-up examination Severe persistent asthma without complication (CMS/HCC)- Primary Essential hypertension ([facility]/HCC) Unspecified essential hypertension JEANNE (acute kidney injury) ([facility]) Leukocytosis, unspecified type Chronic respiratory failure with hypoxia ([facility]/HCC) Chronic bilateral low back pain without sciatica- Primary Vitamin D deficiency Chronic bilateral low back pain without sciatica- Primary Pneumonia due to infectious organism, unspecified laterality, unspecified part of lung- Primary Screening mammogram for breast cancer Chronic respiratory failure with hypoxia (CMS/HCC) Pulmonary emphysema, unspecified emphysema type (CMS/HCC) Essential hypertension ([facility]/HCC) Unspecified essential hypertension Morbid obesity with BMI of 40.0-44.9, adult ([facility]) Hospital discharge follow-up- Primary Other [...] 40.0-44.9, adult (CMS/HCC) documented in this encounter [facility]* Diagnosis Chronic bilateral low back pain without sciatica documented in this encounter [facility]* Diagnosis Moderate episode of recurrent major depressive disorder (HCC) (CMS/[facility]) Urge incontinence documented in this encounter [facility] [...] Morbid obesity with BMI of 40.0-44.9, adult ([facility]) Hospital discharge follow-up- Primary Other [...] Moderate mixed hyperlipidemia not requiring statin therapy ([facility]/HCC) Morbid obesity with BMI of 40.0-44.9, adult ([facility]) Opioid use Chronic, continuous use of opioids Chronic back pain greater than 3 months duration Urge incontinence- Primary Morbid obesity with BMI of 40.0-44.9, adult ([facility]) 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 Stage 3a chronic kidney disease (HCC) ([facility]/HCC) Chronic respiratory failure with hypoxia ([facility]/HCC) Moderate episode of recurrent major depressive disorder ([facility]/HCC) Restless leg syndrome Restless legs syndrome (RLS) [...] subsequent Severe persistent asthma with acute exacerbation ([facility]/HCC)- Primary Hospital discharge follow-up Other follow-up examination Severe persistent asthma without complication (CMS/HCC)- Primary Essential hypertension (CMS/HCC) Unspecified essential hypertension JEANNE (acute kidney injury) ([facility]) Leukocytosis, unspecified type Chronic respiratory failure with hypoxia (CMS/HCC) Chronic bilateral low back pain without sciatica- Primary Vitamin D deficiency Chronic bilateral low back pain without sciatica- Primary Pneumonia due to infectious organism, unspecified laterality, unspecified part of lung- Primary Screening mammogram for breast cancer Chronic respiratory failure with hypoxia (CMS/HCC) Pulmonary emphysema, unspecified emphysema type ([facility]/HCC) Essential hypertension ([facility]/HCC) Unspecified essential hypertension Morbid obesity with BMI of 40.0-44.9, adult ([facility]) Hospital discharge follow-up- Primary Other follow-up examination Chronic respiratory failure with hypoxia (CMS/HCC) Severe persistent asthma without complication ([facility]/HCC) Severe persistent asthma with acute exacerbation ([facility]/HCC)- Primary Severe persistent asthma with exacerbation ([facility]/HCC)- Primary Unspecified asthma, with exacerbation Hospital discharge follow-up- Primary Other follow-up examination Chronic respiratory failure with hypoxia ([facility]/HCC)- Primary Hospital discharge follow-up Other follow-up examination Benign essential HTN ([facility]) Chronic heart failure with preserved ejection fraction ([facility]/HCC) Severe persistent asthma without complication (CMS/HCC) Moderate mixed hyperlipidemia not requiring statin therapy ([facility]) Morbid obesity with BMI of 40.0-44.9, adult ([facility]) Opioid use Chronic, continuous use of opioids Chronic back pain greater than 3 months duration Urge incontinence- Primary Morbid obesity with BMI of 40.0-44.9, adult ([facility]) 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 Stage 3a chronic kidney disease (HCC) ([facility]) Chronic respiratory failure with hypoxia ([facility]) Chronic obstructive pulmonary disease with acute lower respiratory infection ([facility]/HCC)- Primary Primary HSV infection of mouth documented in this encounter [facility] HealthcareEvaluation note* Diagnosis Moderate persistent asthma with exacerbation (CMS/HCC)- Primary Unspecified asthma, with exacerbation Non-recurrent acute suppurative otitis media of both ears without spontaneous rupture of tympanic membranes Colorectal cancer ([facility]/HCC) Malignant neoplasm of colon, unspecified site [...] Morbid obesity with BMI of 40.0-44.9, adult ([facility]) Hospital discharge follow-up- Primary Other [...] Morbid obesity with BMI of 40.0-44.9, adult ([facility]/HCC) Opioid use Chronic, continuous use of opioids Chronic back pain greater than 3 months duration Urge incontinence- Primary Morbid obesity with BMI of 40.0-44.9, adult ([facility]/HCC) 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 Stage 3a chronic kidney disease (HCC) (CMS/HCC) Chronic respiratory failure with hypoxia (CMS/HCC) Chronic obstructive pulmonary disease with acute lower respiratory infection (CMS/HCC)- Primary Primary HSV infection of mouth Pulmonary emphysema, unspecified emphysema type (CMS/HCC)- Primary documented in this encounter [facility]Evaluation [...] (CMS/HCC)- Primary Moderate persistent asthma with exacerbation ([facility]/HCC) Unspecified asthma, with exacerbation Medicare annual wellness visit, subsequent Severe persistent asthma with acute exacerbation (CMS/HCC)- Primary Hospital discharge follow-up Other follow-up examination Severe persistent asthma without complication (CMS/HCC)- Primary Essential hypertension (CMS/HCC) Unspecified essential hypertension JEANNE (acute kidney injury) ([facility]) Leukocytosis, unspecified type Chronic respiratory failure with hypoxia (CMS/HCC) Chronic bilateral low back pain without sciatica- Primary Vitamin D deficiency Chronic bilateral low back pain without sciatica- Primary Pneumonia due to infectious organism, unspecified laterality, unspecified part of lung- Primary Screening mammogram for breast cancer Chronic respiratory failure with hypoxia (CMS/HCC) Pulmonary emphysema, unspecified emphysema type ([facility]/HCC) Essential hypertension ([facility]/HCC) Unspecified essential hypertension Morbid obesity with BMI of 40.0-44.9, adult ([facility]) Hospital discharge follow-up- Primary Other follow-up examination Chronic respiratory failure with hypoxia (CMS/HCC) Severe persistent asthma without complication (CMS/HCC) Severe persistent asthma with acute exacerbation ([facility]/HCC)- Primary Severe persistent asthma with exacerbation ([facility]/HCC)- Primary Unspecified asthma, with exacerbation Hospital discharge follow-up- Primary Other follow-up examination Chronic respiratory failure with hypoxia ([facility]/HCC)- Primary Hospital discharge follow-up Other follow-up examination Benign essential HTN ([facility]/HCC) Chronic heart failure with preserved ejection fraction (CMS/HCC) Severe persistent asthma without complication ([facility]/HCC) Moderate mixed hyperlipidemia not requiring statin therapy ([facility]/HCC) Morbid obesity with BMI of 40.0-44.9, adult ([facility]) Opioid use Chronic, continuous use of opioids Chronic back pain greater than 3 months duration Urge incontinence- Primary Morbid obesity with BMI of 40.0-44.9, adult ([facility]) 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 Stage 3a chronic kidney disease (HCC) (CMS/HCC) Chronic respiratory failure with hypoxia (CMS/HCC) Chronic obstructive pulmonary disease with acute lower respiratory infection (CMS/HCC)- Primary Primary HSV infection of mouth Pulmonary emphysema, unspecified emphysema type (CMS/HCC)- Primary Gastroesophageal reflux disease without esophagitis Esophageal reflux documented in this encounter [facility] HealthcareEvaluation note* Diagnosis Moderate persistent [...] subsequent Severe persistent asthma with acute exacerbation ([facility]/HCC)- Primary Hospital discharge follow-up Other follow-up examination Severe persistent asthma without complication (CMS/HCC)- Primary Essential hypertension (CMS/HCC) Unspecified essential hypertension JEANNE (acute kidney injury) ([facility]/HCC) Leukocytosis, unspecified type Chronic respiratory failure with hypoxia (CMS/HCC) Chronic bilateral low back pain without sciatica- Primary Vitamin D deficiency Chronic bilateral low back pain without sciatica- Primary Pneumonia due to infectious organism, unspecified laterality, unspecified part of lung- Primary Screening mammogram for breast cancer Chronic respiratory failure with hypoxia (CMS/HCC) Pulmonary emphysema, unspecified emphysema type (CMS/HCC) Essential hypertension ([facility]/HCC) Unspecified essential hypertension Morbid obesity with BMI of 40.0-44.9, adult ([facility]) Hospital discharge follow-up- Primary Other follow-up examination Chronic respiratory failure with hypoxia (CMS/HCC) Severe persistent asthma without complication (CMS/HCC) Severe persistent asthma with acute exacerbation (CMS/HCC)- Primary Severe persistent asthma with exacerbation ([facility]/HCC)- Primary Unspecified asthma, with exacerbation Hospital discharge follow-up- Primary Other follow-up examination Chronic respiratory failure with hypoxia (CMS/HCC)- Primary Hospital discharge follow-up Other follow-up examination Benign essential HTN (CMS/HCC) Chronic heart failure with preserved ejection fraction (CMS/HCC) Severe persistent asthma without complication (CMS/HCC) Moderate mixed hyperlipidemia not requiring statin therapy ([facility]/HCC) Morbid obesity with BMI of 40.0-44.9, adult ([facility]) Opioid use Chronic, continuous use of opioids Chronic back pain greater than 3 months duration Urge incontinence- Primary Morbid obesity with BMI of 40.0-44.9, adult ([facility]) 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 Stage 3a chronic kidney disease (HCC) ([facility]) Chronic respiratory failure with hypoxia ([facility]) Chronic obstructive pulmonary disease with acute lower respiratory infection ([facility])- Primary Primary HSV infection of mouth Pulmonary emphysema, unspecified emphysema type ([facility]/HCC)- Primary Restless leg syndrome Restless legs syndrome (RLS) documented in this encounter [facility] HealthcareEvaluation note* Diagnosis Moderate persistent asthma with exacerbation ([facility])- Primary Unspecified asthma, with exacerbation Non-recurrent acute suppurative otitis media of both ears without spontaneous rupture of tympanic membranes Colorectal cancer ([facility]) Malignant neoplasm of colon, unspecified site Chronic heart failure with preserved ejection fraction ([facility]) Pulmonary emphysema, unspecified emphysema type ([facility]/HCC) Moderate episode of recurrent major depressive disorder ([facility])- Primary Moderate persistent asthma with exacerbation ([facility]) Unspecified asthma, with exacerbation Medicare annual wellness visit, subsequent Severe persistent asthma with acute exacerbation ([facility])- Primary Hospital discharge follow-up Other follow-up examination Severe persistent asthma without complication (CMS/HCC)- Primary Essential hypertension ([facility]/HCC) Unspecified essential hypertension JEANNE (acute kidney injury) ([facility]) Leukocytosis, unspecified type Chronic respiratory failure with hypoxia ([facility]) Chronic bilateral low back pain without sciatica- Primary Vitamin D deficiency Chronic bilateral low back pain without sciatica- Primary Pneumonia due to infectious organism, unspecified laterality, unspecified part of lung- Primary Screening mammogram for breast cancer Chronic respiratory failure with hypoxia (CMS/[facility]) Pulmonary emphysema, unspecified emphysema type ([facility]/HCC) Essential hypertension ([facility]/HCC) Unspecified essential hypertension Morbid obesity with BMI of 40.0-44.9, adult ([facility]) Hospital discharge follow-up- Primary Other follow-up examination Chronic respiratory failure with hypoxia (CMS/HCC) Severe persistent asthma without complication (CMS/HCC) Severe persistent asthma with acute exacerbation (CMS/HCC)- Primary Severe persistent asthma with exacerbation ([facility]/HCC)- Primary Unspecified asthma, with exacerbation Hospital [...] Morbid obesity with BMI of 40.0-44.9, adult ([facility]/HCC) Neoplasm of uncertain behavior of chest [...] skin of chest documented in this encounter [facility] HealthcareEvaluation note* Diagnosis Moderate persistent [...] (CMS/HCC)- Primary Moderate persistent asthma with exacerbation ([facility]/HCC) Unspecified asthma, with exacerbation Medicare annual wellness visit, subsequent Severe persistent asthma with acute exacerbation ([facility]/HCC)- Primary Hospital discharge follow-up Other follow-up examination Severe persistent asthma without complication (CMS/HCC)- Primary Essential hypertension (CMS/HCC) Unspecified essential hypertension JEANEN (acute kidney injury) (CMS/HCC) Leukocytosis, unspecified type [...] Morbid obesity with BMI of 40.0-44.9, adult ([facility]) Opioid use Chronic, continuous use of opioids Chronic back pain greater than 3 months duration Urge incontinence- Primary Morbid obesity with BMI of 40.0-44.9, adult ([facility]) 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 Stage 3a chronic kidney disease (HCC) ([facility]/HCC) Chronic respiratory failure with hypoxia ([facility]/HCC) Chronic obstructive pulmonary disease with acute lower respiratory infection (CMS/HCC)- Primary Primary HSV infection of mouth Pulmonary emphysema, unspecified emphysema type (CMS/HCC)- Primary Moderate episode of recurrent major depressive disorder (CMS/HCC) Acute pain of right knee- Primary History of total right knee replacement documented in this encounter [facility] HealthcareEvaluation note* Diagnosis Moderate persistent [...] subsequent Severe persistent asthma with acute exacerbation ([facility]/HCC)- Primary Hospital discharge follow-up Other follow-up [...] Morbid obesity with BMI of 40.0-44.9, adult ([facility]) Hospital discharge follow-up- Primary Other follow-up examination Chronic respiratory failure with hypoxia (CMS/HCC) Severe persistent asthma without complication (CMS/HCC) Severe persistent asthma with acute exacerbation ([facility]/HCC)- Primary Severe persistent asthma with exacerbation ([facility]/HCC)- Primary Unspecified asthma, with exacerbation Hospital discharge follow-up- Primary Other follow-up examination Chronic respiratory failure with hypoxia (CMS/HCC)- Primary Hospital discharge follow-up Other follow-up examination Benign essential HTN ([facility]) Chronic heart failure with preserved ejection fraction ([facility]) Severe persistent asthma without complication ([facility]/HCC) Moderate mixed hyperlipidemia not requiring statin therapy ([facility]) Morbid obesity with BMI of 40.0-44.9, adult ([facility]) Opioid use Chronic, continuous use of opioids Chronic back pain greater than 3 months duration Urge incontinence- Primary Morbid obesity with BMI of 40.0-44.9, adult ([facility]) 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 Stage 3a chronic kidney disease (HCC) ([facility]) Chronic respiratory failure with hypoxia ([facility]) Chronic obstructive pulmonary disease with acute lower respiratory infection ([facility])- Primary Primary HSV infection of mouth Pulmonary emphysema, unspecified emphysema type ([facility]/HCC)- Primary Acute pain of right knee- Primary History of total right knee replacement Right hip pain Pain in joint, pelvic region and thigh Arthritis of right hip documented in this encounter [facility] HealthcareEvaluation note* Diagnosis Moderate persistent asthma with exacerbation ([facility]/HCC)- Primary Unspecified asthma, with exacerbation Non-recurrent acute suppurative otitis media of both ears without spontaneous rupture of tympanic membranes Colorectal cancer ([facility]/HCC) Malignant neoplasm of colon, unspecified site Chronic heart failure with preserved ejection fraction (CMS/HCC) Pulmonary emphysema, unspecified emphysema type ([facility]/HCC) Moderate episode of recurrent major depressive [...] Morbid obesity with BMI of 40.0-44.9, adult ([facility]) Hospital discharge follow-up- Primary Other [...] Moderate mixed hyperlipidemia not requiring statin therapy ([facility]/HCC) Morbid obesity with BMI of 40.0-44.9, adult ([facility]) Opioid use Chronic, continuous use of opioids Chronic back pain greater than 3 months duration Urge incontinence- Primary Morbid obesity with BMI of 40.0-44.9, adult ([facility]) 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 Stage 3a chronic kidney disease (HCC) (CMS/HCC) Chronic respiratory failure with hypoxia ([facility]/HCC) Chronic obstructive pulmonary disease with acute [...] subsequent Severe persistent asthma with acute exacerbation ([facility]/HCC)- Primary Hospital discharge follow-up Other follow-up examination Severe persistent asthma without complication (CMS/HCC)- Primary Essential hypertension (CMS/HCC) Unspecified essential hypertension JAENNE (acute kidney injury) ([facility]) Leukocytosis, unspecified type Chronic respiratory failure with hypoxia (CMS/HCC) Chronic bilateral low back pain without sciatica- Primary Vitamin D deficiency Chronic bilateral low back pain without sciatica- Primary Pneumonia due to infectious organism, unspecified laterality, unspecified part of lung- Primary Screening mammogram for breast cancer Chronic respiratory failure with hypoxia (CMS/HCC) Pulmonary emphysema, unspecified emphysema type ([facility]/HCC) Essential hypertension ([facility]/HCC) Unspecified essential hypertension Morbid obesity with BMI of 40.0-44.9, adult ([facility]) Hospital discharge follow-up- Primary Other follow-up examination Chronic respiratory failure with hypoxia (CMS/HCC) Severe persistent asthma without complication ([facility]/HCC) Severe persistent asthma with acute exacerbation (CMS/HCC)- Primary Hospital discharge follow-up- Primary Other follow-up examination Chronic respiratory failure with hypoxia (CMS/HCC)- Primary Hospital discharge follow-up Other follow-up examination Benign essential HTN ([facility]) Chronic heart failure with preserved ejection fraction (CMS/HCC) Severe persistent asthma without complication (CMS/HCC) Moderate mixed hyperlipidemia not requiring statin therapy ([facility]) Morbid obesity with BMI of 40.0-44.9, adult ([facility]) Opioid use Chronic, continuous use of opioids Chronic back pain greater than 3 months duration Urge incontinence- Primary Morbid obesity with BMI of 40.0-44.9, adult ([facility]) 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 Stage 3a chronic kidney disease (HCC) ([facility]) Chronic respiratory failure with hypoxia ([facility]) Chronic obstructive pulmonary disease with acute lower respiratory infection ([facility]/HCC)- Primary Primary HSV infection of mouth Pulmonary emphysema, unspecified emphysema type ([facility]/HCC)- Primary Flu-like symptoms- Primary Morbid (severe) obesity due to excess calories ([facility]) Body mass index (BMI) 40.0-44.9, adult ([facility]) Pulmonary emphysema, unspecified emphysema type ([facility]/HCC) Chronic respiratory failure with hypoxia (CMS/HCC) Essential hypertension (CMS/HCC) Unspecified essential hypertension documented in this encounter [facility] HealthcareEvaluation note* Diagnosis Moderate episode [...] Morbid obesity with BMI of 40.0-44.9, adult ([facility]) Hospital discharge follow-up- Primary Other [...] Morbid obesity with BMI of 40.0-44.9, adult ([facility]/HCC) Opioid use Chronic, continuous use of opioids Chronic back pain greater than 3 months duration Urge incontinence- Primary Morbid obesity with BMI of 40.0-44.9, adult ([facility]) 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 Stage 3a chronic kidney disease (HCC) (CMS/HCC) Chronic respiratory failure with hypoxia ([facility]/HCC) Chronic obstructive pulmonary disease with acute lower respiratory infection (CMS/HCC)- Primary Primary HSV infection of mouth Pulmonary emphysema, unspecified emphysema type ([facility]/HCC)- Primary Flu-like symptoms- Primary Morbid (severe) obesity due to excess calories ([facility]/HCC) Body mass index (BMI) 40.0-44.9, adult ([facility]) Pulmonary emphysema, unspecified emphysema type (CMS/HCC) Chronic respiratory failure with hypoxia (CMS/HCC) Essential hypertension (CMS/HCC) Unspecified essential hypertension Pneumonia due to infectious organism, unspecified laterality, unspecified part of lung- Primary documented in this encounter [facility] HealthcareEvaluation note* Diagnosis Moderate episode of recurrent major depressive disorder ([facility]/HCC)- Primary Moderate persistent asthma with exacerbation ([facility]/HCC) Unspecified asthma, with exacerbation Medicare annual wellness visit, subsequent Severe persistent asthma with acute exacerbation (CMS/HCC)- Primary Hospital discharge follow-up Other follow-up examination Severe persistent asthma without complication (CMS/HCC)- Primary Essential hypertension (CMS/HCC) Unspecified essential hypertension JEANNE (acute kidney injury) ([facility]) Leukocytosis, unspecified type Chronic respiratory failure with hypoxia (CMS/HCC) Chronic bilateral low back pain without sciatica- Primary Vitamin D deficiency Chronic bilateral low back pain without sciatica- Primary Pneumonia due to infectious organism, unspecified laterality, unspecified part of lung- Primary Screening mammogram for breast cancer Chronic respiratory failure with hypoxia (CMS/HCC) Pulmonary emphysema, unspecified emphysema type (CMS/HCC) Essential hypertension ([facility]/HCC) Unspecified essential hypertension Morbid obesity with BMI of 40.0-44.9, adult ([facility]) Hospital discharge follow-up- Primary Other follow-up examination Chronic respiratory failure with hypoxia (CMS/HCC) Severe persistent asthma without complication (CMS/HCC) Chronic respiratory failure with hypoxia ([facility]/HCC)- Primary Hospital discharge follow-up Other follow-up examination Benign essential HTN (CMS/HCC) Chronic heart failure with preserved ejection fraction (CMS/HCC) Severe persistent asthma without complication (CMS/HCC) Moderate mixed hyperlipidemia not requiring statin therapy ([facility]/HCC) Morbid obesity with BMI of 40.0-44.9, adult ([facility]) Opioid use Chronic, continuous use of opioids Chronic back pain greater than 3 months duration Urge incontinence- Primary Morbid obesity with BMI of 40.0-44.9, adult ([facility]) 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 Stage 3a chronic kidney disease (HCC) (CMS/HCC) Chronic respiratory failure with hypoxia ([facility]/HCC) Chronic obstructive pulmonary disease with acute lower respiratory infection ([facility]/HCC)- Primary Primary HSV infection of mouth [...] depressive disorder (CMS/HCC) documented in this encounter [facility] HealthcareEvaluation note* Diagnosis Moderate episode [...] Chronic heart failure with preserved ejection fraction ([facility]) Severe persistent asthma without complication ([facility]) Moderate mixed hyperlipidemia not requiring statin therapy ([facility]) Morbid obesity with BMI of 40.0-44.9, adult ([facility]) Opioid use Chronic, continuous use of opioids Chronic back pain greater than 3 months duration Urge incontinence- Primary Morbid obesity with BMI of 40.0-44.9, adult ([facility]) 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 Stage 3a chronic kidney disease (HCC) ([facility]) Chronic respiratory failure with hypoxia ([facility]) Chronic obstructive pulmonary disease with acute lower respiratory infection ([facility])- Primary Primary HSV infection of mouth Pulmonary emphysema, unspecified emphysema type ([facility])- Primary Flu-like symptoms- Primary Morbid (severe) obesity due to excess calories ([facility]) Body mass index (BMI) 40.0-44.9, adult ([facility]) Pulmonary emphysema, unspecified emphysema type ([facility]) Chronic respiratory failure with hypoxia ([facility]) Essential hypertension ([facility]) Unspecified essential hypertension Pneumonia due to infectious organism, unspecified laterality, unspecified part of lung- Primary Pneumonia due to infectious organism, unspecified laterality, unspecified part of lung- Primary Chronic respiratory failure with hypoxia ([facility]) Severe persistent asthma, uncomplicated ([facility]) Chronic heart failure with preserved ejection fraction ([facility]) Essential hypertension ([facility]) Unspecified essential hypertension Other secondary pulmonary hypertension Chronic kidney disease, stage 3a (HCC) ([facility]) Morbid (severe) obesity due to excess calories ([facility]) Screening mammogram for breast cancer Moderate episode of recurrent major depressive disorder ([facility]) Edema of both lower extremities- Primary Spinal stenosis, lumbar region without neurogenic claudication Chronic heart failure with preserved ejection fraction ([facility]) Chronic respiratory failure with hypoxia ([facility]) Severe persistent asthma, uncomplicated ([facility]) Gastroesophageal reflux disease, unspecified whether esophagitis present Morbid (severe) obesity due to excess calories ([facility]) RLS (restless legs syndrome) Restless legs syndrome (RLS) Candidiasis documented in this encounter [facility] HealthcareEvaluation note* Diagnosis Moderate episode of recurrent major depressive disorder ([facility]/HCC)- Primary Moderate persistent asthma with exacerbation ([facility]) Unspecified asthma, with exacerbation Medicare [...] Morbid obesity with BMI of 40.0-44.9, adult ([facility]) Hospital discharge follow-up- Primary Other follow-up examination Chronic respiratory failure with hypoxia (CMS/HCC) Severe persistent asthma without complication (CMS/HCC) Chronic respiratory failure with hypoxia (CMS/HCC)- Primary Hospital discharge follow-up Other follow-up examination Benign essential HTN ([facility]/HCC) Chronic heart failure with preserved ejection fraction (CMS/HCC) Severe persistent asthma without complication (CMS/HCC) Moderate mixed hyperlipidemia not requiring statin therapy ([facility]/HCC) Morbid obesity with BMI of 40.0-44.9, adult ([facility]) Opioid use Chronic, continuous use of opioids Chronic back pain greater than 3 months duration Urge incontinence- Primary Morbid obesity with BMI of 40.0-44.9, adult ([facility]) 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 Stage 3a chronic kidney disease (HCC) ([facility]) Chronic respiratory failure with hypoxia ([facility]) Chronic obstructive pulmonary disease with acute lower respiratory infection ([facility])- Primary Primary HSV infection of mouth Pulmonary emphysema, unspecified emphysema type (CMS/HCC)- Primary Flu-like symptoms- Primary Morbid (severe) obesity due to excess calories ([facility]) Body mass index (BMI) 40.0-44.9, adult ([facility]/HCC) Pulmonary emphysema, unspecified emphysema type (CMS/HCC) Chronic [...] esophagitis Esophageal reflux documented in this encounter [facility] HealthcareEvaluation note* Diagnosis Moderate episode [...] Morbid obesity with BMI of 40.0-44.9, adult ([facility]) Opioid use Chronic, continuous use of opioids Chronic back pain greater than 3 months duration Urge incontinence- Primary Morbid obesity with BMI of 40.0-44.9, adult ([facility]) 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 Stage 3a chronic kidney disease (HCC) ([facility]) Chronic respiratory failure with hypoxia ([facility]) Chronic obstructive pulmonary disease with acute lower respiratory infection ([facility])- Primary Primary HSV infection of mouth Pulmonary emphysema, unspecified emphysema type ([facility])- Primary Flu-like symptoms- Primary Morbid (severe) obesity due to excess calories ([facility]) Body mass index (BMI) 40.0-44.9, adult ([facility]) Pulmonary emphysema, unspecified emphysema type ([facility]) Chronic respiratory failure with hypoxia ([facility]) Essential hypertension ([facility]) Unspecified essential hypertension Pneumonia due to infectious organism, unspecified laterality, unspecified part of lung- Primary Pneumonia due to infectious organism, unspecified laterality, unspecified part of lung- Primary Chronic respiratory failure with hypoxia ([facility]) Severe persistent asthma, uncomplicated ([facility]) Chronic heart failure with preserved ejection fraction ([facility]) Essential hypertension ([facility]) Unspecified essential hypertension Other secondary pulmonary hypertension Chronic kidney disease, stage 3a (HCC) ([facility]) Morbid (severe) obesity due to excess calories ([facility]) Screening mammogram for breast cancer Moderate episode of recurrent major depressive disorder ([facility]) Edema of both lower extremities- Primary Spinal stenosis, lumbar region without neurogenic claudication Chronic heart failure with preserved ejection fraction ([facility]) Chronic respiratory failure with hypoxia ([facility]) Severe persistent asthma, uncomplicated ([facility]) Gastroesophageal reflux disease, unspecified whether esophagitis present Morbid (severe) obesity due to excess calories ([facility]) RLS (restless legs syndrome) Restless legs syndrome (RLS) Candidiasis Moderate episode of recurrent major depressive disorder ([facility]/HCC)- Primary Pulmonary emphysema, unspecified emphysema type ([facility]/HCC) Chronic respiratory failure with hypoxia ([facility]) Morbid (severe) obesity due to excess calories ([facility]) Restless leg syndrome Restless legs [...] Morbid obesity with BMI of 40.0-44.9, adult ([facility]) Hospital discharge follow-up- Primary Other follow-up examination Chronic respiratory failure with hypoxia (HCC) Severe persistent asthma without complication (HCC) Chronic respiratory failure with hypoxia (HCC)- Primary Hospital discharge follow-up Other follow-up examination Benign essential HTN Chronic heart failure with preserved ejection fraction (HCC) Severe persistent asthma without complication (HCC) Moderate mixed hyperlipidemia not requiring statin therapy Morbid obesity with BMI of 40.0-44.9, adult ([facility]) Opioid use Chronic, continuous use of opioids Chronic back pain greater than 3 months duration Urge incontinence- Primary Morbid obesity with BMI of 40.0-44.9, adult ([facility]) 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 Stage 3a chronic kidney disease ([facility]) Chronic respiratory failure with hypoxia ([facility]) Chronic obstructive pulmonary disease with acute lower respiratory infection (HCC)- Primary Primary HSV infection of mouth Pulmonary emphysema, unspecified emphysema type (HCC)- Primary Flu-like symptoms- Primary Morbid (severe) obesity due to excess calories ([facility]) Body mass index (BMI) 40.0-44.9, adult ([facility]) Pulmonary emphysema, unspecified emphysema type ([facility]) Chronic respiratory failure with hypoxia (HCC) Essential [...] hypertension (HCC) Chronic kidney disease, stage 3a (CMS-HCC) Morbid (severe) obesity due to excess calories ([facility]) Screening mammogram for breast cancer Moderate episode of recurrent major depressive disorder (HCC) Edema of both lower extremities- Primary Spinal stenosis, lumbar region without neurogenic claudication Chronic heart failure with preserved ejection fraction (HCC) Chronic respiratory failure with hypoxia (HCC) Severe persistent asthma, uncomplicated (HCC) Gastroesophageal reflux disease, unspecified whether esophagitis present Morbid (severe) obesity due to excess calories ([facility]) RLS (restless legs syndrome) Restless legs syndrome (RLS) Candidiasis Moderate episode of recurrent major depressive disorder (HCC)- Primary Pulmonary emphysema, unspecified emphysema type (HCC) Chronic respiratory failure with hypoxia (HCC) Morbid (severe) obesity due to excess calories ([facility]) Restless leg syndrome Restless legs syndrome (RLS) Moderate episode of recurrent major depressive disorder (HCC)- Primary documented in this encounter [facility] HealthcareEvaluation note* Diagnosis Moderate episode [...] Morbid obesity with BMI of 40.0-44.9, adult ([facility]) Hospital discharge follow-up- Primary Other [...] Morbid obesity with BMI of 40.0-44.9, adult ([facility]) Opioid use Chronic, continuous use of opioids Chronic back pain greater than 3 months duration Urge incontinence- Primary Morbid obesity with BMI of 40.0-44.9, adult ([facility]) 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 Stage 3a chronic kidney disease ([facility]) Chronic respiratory failure with hypoxia (HCC) Chronic obstructive pulmonary disease with acute lower respiratory infection (HCC)- Primary Primary HSV infection of mouth Pulmonary emphysema, unspecified emphysema type (HCC)- Primary Flu-like symptoms- Primary Morbid (severe) obesity due to excess calories ([facility]) Body mass index (BMI) 40.0-44.9, adult ([facility]) Pulmonary emphysema, unspecified emphysema type [...] hypertension (HCC) Chronic kidney disease, stage 3a ([facility]) Morbid (severe) obesity due to excess calories ([facility]) Screening mammogram for breast cancer Moderate episode of recurrent major depressive disorder ([facility]) Edema of both lower extremities- Primary Spinal stenosis, lumbar region without neurogenic claudication Chronic heart failure with preserved ejection fraction (HCC) Chronic respiratory failure with hypoxia (HCC) Severe persistent asthma, uncomplicated ([facility]) Gastroesophageal reflux disease, unspecified whether esophagitis present Morbid (severe) obesity due to excess calories ([facility]) RLS (restless legs syndrome) Restless legs syndrome (RLS) Candidiasis Moderate episode of recurrent major depressive disorder (HCC)- Primary Pulmonary emphysema, unspecified emphysema type (HCC) Chronic respiratory failure with hypoxia (HCC) Morbid (severe) obesity due to excess calories ([facility]) Restless leg syndrome Restless legs syndrome (RLS) Chronic bilateral low back pain without sciatica documented in this encounter [facility] HealthcareEvaluation note* Diagnosis Moderate episode [...] Morbid obesity with BMI of 40.0-44.9, adult ([facility]) Hospital discharge follow-up- Primary Other follow-up examination Chronic respiratory failure with hypoxia (HCC) Severe persistent asthma without complication (HCC) Chronic respiratory failure with hypoxia (HCC)- Primary Hospital discharge follow-up Other follow-up examination Benign essential HTN Chronic heart failure with preserved ejection fraction (HCC) Severe persistent asthma without complication (HCC) Moderate mixed hyperlipidemia not requiring statin therapy Morbid obesity with BMI of 40.0-44.9, adult ([facility]) Opioid use Chronic, continuous use of opioids Chronic back pain greater than 3 months duration Urge incontinence- Primary Morbid obesity with BMI of 40.0-44.9, adult ([facility]) 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 Stage 3a chronic kidney disease ([facility]) Chronic respiratory failure with hypoxia ([facility]) Chronic obstructive pulmonary disease with acute lower respiratory infection ([facility])- Primary Primary HSV infection of mouth Pulmonary emphysema, unspecified emphysema type ([facility])- Primary Flu-like symptoms- Primary Morbid (severe) obesity due to excess calories ([facility]) Body mass index (BMI) 40.0-44.9, adult ([facility]) Pulmonary emphysema, unspecified emphysema type ([facility]) Chronic respiratory failure with hypoxia (HCC) Essential [...] hypertension (HCC) Chronic kidney disease, stage 3a ([facility]) Morbid (severe) obesity due to excess calories ([facility]) Screening mammogram for breast cancer Moderate episode of recurrent major depressive disorder ([facility]) Edema of both lower extremities- Primary Spinal stenosis, lumbar region without neurogenic claudication Chronic heart failure with preserved ejection fraction (HCC) Chronic respiratory failure with hypoxia (HCC) Severe persistent asthma, uncomplicated (HCC) Gastroesophageal reflux disease, unspecified whether esophagitis present Morbid (severe) obesity due to excess calories ([facility]) RLS (restless legs syndrome) Restless legs syndrome (RLS) Candidiasis Moderate episode of recurrent major depressive disorder (HCC)- Primary Pulmonary emphysema, unspecified emphysema type (HCC) Chronic respiratory failure with hypoxia (HCC) Morbid (severe) obesity due to excess calories ([facility]) Restless leg syndrome Restless legs syndrome (RLS) Restless leg syndrome Restless legs syndrome (RLS) documented in this encounter [facility] HealthcareEvaluation note* Diagnosis Moderate episode [...] Morbid obesity with BMI of 40.0-44.9, adult ([facility]) Hospital discharge follow-up- Primary Other follow-up examination Chronic respiratory failure with hypoxia (HCC) Severe persistent asthma without complication (HCC) Chronic respiratory failure with hypoxia (HCC)- Primary Hospital discharge follow-up Other follow-up examination Benign essential HTN Chronic heart failure with preserved ejection fraction (HCC) Severe persistent asthma without complication (HCC) Moderate mixed hyperlipidemia not requiring statin therapy Morbid obesity with BMI of 40.0-44.9, adult ([facility] [place] Opioid use Chronic, continuous use of opioids Chronic back pain greater than 3 months duration Urge incontinence- Primary Morbid obesity with BMI of 40.0-44.9, adult ([facility] [place]) 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 Stage 3a chronic kidney disease ([facility]) Chronic respiratory failure with hypoxia (HCC) Chronic obstructive pulmonary disease with acute lower respiratory infection (HCC)- Primary Primary HSV infection of mouth Pulmonary emphysema, unspecified emphysema type (HCC)- Primary Flu-like symptoms- Primary Morbid (severe) obesity due to excess calories ([facility]) Body mass index (BMI) 40.0-44.9, adult ([facility] [place]) Pulmonary emphysema, unspecified emphysema type (HCC) Chronic [...] hypertension (HCC) Chronic kidney disease, stage 3a ([facility]) Morbid (severe) obesity due to excess calories ([facility] [place]) Screening mammogram for breast cancer Moderate episode of recurrent major depressive disorder (HCC) Edema of both lower extremities- Primary Spinal stenosis, lumbar region without neurogenic claudication Chronic heart failure with preserved ejection fraction (HCC) Chronic respiratory failure with hypoxia (HCC) Severe persistent asthma, uncomplicated (HCC) Gastroesophageal reflux disease, unspecified whether esophagitis present Morbid (severe) obesity due to excess calories ([facility] [place]) RLS (restless legs syndrome) Restless legs syndrome (RLS) Candidiasis Moderate episode of recurrent major depressive disorder (HCC)- Primary Pulmonary emphysema, unspecified emphysema type (HCC) Chronic respiratory failure with hypoxia (HCC) Morbid (severe) obesity due to excess calories ([facility]) Restless leg syndrome Restless legs syndrome (RLS) Chronic heart failure with preserved ejection fraction (HCC)- Primary Edema of both lower extremities documented [facility]* [...] Morbid obesity with BMI of 40.0-44.9, adult ([facility] [place]) Hospital discharge follow-up- Primary Other follow-up examination Chronic respiratory failure with hypoxia (HCC) Severe persistent asthma without complication (HCC) Chronic respiratory failure with hypoxia (HCC)- Primary Hospital discharge follow-up Other follow-up examination Benign essential HTN Chronic heart failure with preserved ejection fraction (HCC) Severe persistent asthma without complication (HCC) Moderate mixed hyperlipidemia not requiring statin therapy Morbid obesity with BMI of 40.0-44.9, adult ([facility] [place]) Opioid use Chronic, continuous use of opioids Chronic back pain greater than 3 months duration Urge incontinence- Primary Morbid obesity with BMI of 40.0-44.9, adult ([facility] [place]) 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 Stage 3a chronic kidney disease ([facility]) Chronic respiratory failure with hypoxia ([facility]) Chronic obstructive pulmonary disease with acute lower respiratory infection ([facility])- Primary Primary HSV infection of mouth Pulmonary emphysema, unspecified emphysema type ([facility])- Primary Flu-like symptoms- Primary Morbid (severe) obesity due to excess calories ([facility] [place]) Body mass index (BMI) 40.0-44.9, adult ([facility] [place]) Pulmonary emphysema, unspecified emphysema type ([facility]) Chronic respiratory failure with hypoxia (HCC) Essential [...] hypertension (HCC) Chronic kidney disease, stage 3a ([facility]) Morbid (severe) obesity due to excess calories ([facility] [place]) Screening mammogram for breast cancer Moderate episode of recurrent major depressive disorder (HCC) Edema of both lower extremities- Primary Spinal stenosis, lumbar region without neurogenic claudication Chronic heart failure with preserved ejection fraction (HCC) Chronic respiratory failure with hypoxia (HCC) Severe persistent asthma, uncomplicated (HCC) Gastroesophageal reflux disease, unspecified whether esophagitis present Morbid (severe) obesity due to excess calories ([facility]) RLS (restless legs syndrome) Restless legs syndrome (RLS) Candidiasis Moderate episode of recurrent major depressive disorder (HCC)- Primary Pulmonary emphysema, unspecified emphysema type (HCC) Chronic respiratory failure with hypoxia (HCC) Morbid (severe) obesity due to excess calories ([facility]) Restless leg syndrome Restless legs syndrome (RLS) Moderate episode of recurrent major depressive disorder (HCC)- Primary Morbid (severe) obesity due to excess calories ([facility] [place]) Candidiasis of breast Skin pustule Unspecified local infection of skin and subcutaneous tissue RLS (restless legs syndrome) Restless legs syndrome (RLS) documented in this encounter [facility] HealthcareEvaluation note* Diagnosis Moderate episode [...] hypoxia (HCC) Pulmonary emphysema, unspecified emphysema type ([facility]) Essential hypertension Unspecified essential hypertension Morbid obesity with BMI of 40.0-44.9, adult ([facility] [place]) Hospital discharge follow-up- Primary Other follow-up examination Chronic respiratory failure with hypoxia (HCC) Severe persistent asthma without complication (HCC) Chronic respiratory failure with hypoxia (HCC)- Primary Hospital discharge follow-up Other follow-up examination Benign essential HTN Chronic heart failure with preserved ejection fraction (HCC) Severe persistent asthma without complication (HCC) Moderate mixed hyperlipidemia not requiring statin therapy Morbid obesity with BMI of 40.0-44.9, adult ([facility] [place]) Opioid use Chronic, continuous use of opioids Chronic back pain greater than 3 months duration Urge incontinence- Primary Morbid obesity with BMI of 40.0-44.9, adult ([facility] [place]) 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 Stage 3a chronic kidney disease ([facility] [place]) Chronic respiratory failure with hypoxia ([facility]) Chronic obstructive pulmonary disease with acute lower respiratory infection ([facility])- Primary Primary HSV infection of mouth Pulmonary emphysema, unspecified emphysema type ([facility])- Primary Flu-like symptoms- Primary Morbid (severe) obesity due to excess calories ([facility] [place]) Body mass index (BMI) 40.0-44.9, adult ([facility] [place]) Pulmonary emphysema, unspecified emphysema type ([facility]) Chronic respiratory failure with hypoxia (HCC) Essential [...] hypertension (HCC) Chronic kidney disease, stage 3a ([facility]) Morbid (severe) obesity due to excess calories ([facility]) Screening mammogram for breast cancer Moderate episode of recurrent major depressive disorder (HCC) Edema of both lower extremities- Primary Spinal stenosis, lumbar region without neurogenic claudication Chronic heart failure with preserved ejection fraction (HCC) Chronic respiratory failure with hypoxia (HCC) Severe persistent asthma, uncomplicated (HCC) Gastroesophageal reflux disease, unspecified whether esophagitis present Morbid (severe) obesity due to excess calories ([facility]) RLS (restless legs syndrome) Restless legs syndrome (RLS) Candidiasis Moderate episode of recurrent major depressive disorder (HCC)- Primary Pulmonary emphysema, unspecified emphysema type (HCC) Chronic respiratory failure with hypoxia (HCC) Morbid (severe) obesity due to excess calories ([facility]) Restless leg syndrome Restless legs syndrome (RLS) Moderate episode of recurrent major depressive disorder (HCC)- Primary Morbid (severe) obesity due to excess calories ([facility]) Candidiasis of breast Skin pustule Unspecified local infection of skin and subcutaneous tissue RLS (restless legs syndrome) Restless legs syndrome (RLS) Skin pustule Unspecified local infection of skin and subcutaneous tissue documented in this encounter [facility] HealthcareEvaluation note* Diagnosis Moderate episode [...] Morbid obesity with BMI of 40.0-44.9, adult ([facility] [place]) Hospital discharge follow-up- Primary Other follow-up examination Chronic respiratory failure with hypoxia (HCC) Severe persistent asthma without complication (HCC) Chronic respiratory failure with hypoxia (HCC)- Primary Hospital discharge follow-up Other follow-up examination Benign essential HTN Chronic heart failure with preserved ejection fraction (HCC) Severe persistent asthma without complication (HCC) Moderate mixed hyperlipidemia not requiring statin therapy Morbid obesity with BMI of 40.0-44.9, adult ([facility] [place]) Opioid use Chronic, continuous use of opioids Chronic back pain greater than 3 months duration Urge incontinence- Primary Morbid obesity with BMI of 40.0-44.9, adult ([facility] [place]) 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 Stage 3a chronic kidney disease ([facility] [place]) Chronic respiratory failure with hypoxia ([facility]) Chronic obstructive pulmonary disease with acute lower respiratory infection ([facility])- Primary Primary HSV infection of mouth Pulmonary emphysema, unspecified emphysema type ([facility])- Primary Flu-like symptoms- Primary Morbid (severe) obesity due to excess calories ([facility] [place]) Body mass index (BMI) 40.0-44.9, adult ([facility] [place]) Pulmonary emphysema, unspecified emphysema type ([facility]) Chronic respiratory failure with hypoxia ([facility]) Essential hypertension Unspecified essential hypertension [...] hypertension (HCC) Chronic kidney disease, stage 3a ([facility] [place]) Morbid (severe) obesity due to excess calories ([facility] [place]) Screening mammogram for breast cancer Moderate episode of recurrent major depressive disorder ([facility]) Edema of both lower extremities- Primary Spinal stenosis, lumbar region without neurogenic claudication Chronic heart failure with preserved ejection fraction (HCC) Chronic respiratory failure with hypoxia (HCC) Severe persistent asthma, uncomplicated (HCC) Gastroesophageal reflux disease, unspecified whether esophagitis present Morbid (severe) obesity due to excess calories ([facility] [place]) RLS (restless legs syndrome) Restless legs syndrome (RLS) Candidiasis Moderate episode of recurrent major depressive disorder (HCC)- Primary Pulmonary emphysema, unspecified emphysema type ([facility]) Chronic respiratory failure with hypoxia (HCC) Morbid [...] depressive disorder (HCC) documented in [facility] [...] IN 08/2019 Hospitalization History HIP REVISION 03/2020 [facility] Other History general Narrative - Reported* Type [...] Hospitalization History COVID X 2 WEEKS 04/2023 [facility] Other Hospital course Narrative No data available for this section [facility] Discharge instructions Additional Instructions DISCHARGE INSTRUCTIONS [...] if you have any problems. -Office number [phone] Work Phone: Hospital Discharge instructions No data available for this section [facility] Progress note No data available for this section [facility] Advance Directives Advance Directive Response Recorded Date/ [...] or prosecute any alcohol or drug abuse patient.[facility] the event this information is protected by the Federal Confidentiality of Alcohol and Drug Abuse Patient Records regulations: The Federal rules restrict any use of the information to criminally investigate or prosecute any alcohol or drug abuse patient.[facility] the event this information is protected by the Federal Confidentiality of Alcohol and Drug Abuse Patient Records regulations: The Federal rules restrict any use of the information to criminally investigate or prosecute any alcohol or drug abuse patient.[facility] the event this information is protected by the Federal Confidentiality of Alcohol and Drug Abuse Patient Records regulations: The Federal rules restrict any use of the information to criminally investigate or prosecute any alcohol or drug abuse patient.[facility] INFORMATION SOURCE (unrecogn ized section and content) DATE CREATED AUTHOR 03/03/2022 [facility] DATE CREATED AUTHOR AUTHOR'S ORGANIZ ATION 04/17/2023 [facility] DATE CREATED AUTHOR AUTHOR'S ORGANIZ ATION 10/20/2024 [facility] DATE CREATED AUTHOR AUTHOR'S ORGANIZ ATION 11/18/2024 [facility] DATE CREATED AUTHOR AUTHOR'S ORGANIZ ATION 01/25/2025 [facility] DATE CREATED AUTHOR AUTHOR'S ORGANIZ ATION 03/26/2025 [facility] DATE CREATED AUTHOR AUTHOR'S ORGANIZ ATION 05/22/2025 [facility] dical [facility] [address] DATE CREATED AUTHOR AUTHOR'S ORGANIZ ATION 06/20/2025 [facility] DATE CREATED AUTHOR AUTHOR'S ORGANIZ ATION 07/05/2025 [facility] REASON FOR VISIT (unrecogniz ed section [...] of uncertain behavior of chest wall Procedures [place] OFFICE/OUTPATIENT NEW HIGH MDM Aida Reese, RIKKI [address] [facility] [address] Phone: tel: fax: Elena Martinez, EDUCATION OFFICER-CIRCLE BEVELER [address] [place] [address] Phone: tel: fax: Referral ID Status Reason Start Date Expiration Date V isits Requested Visits Authorized [id number] Closed Specialty Services Required 10/07/2024 04/05/2025 1 [...] Care Teams (unrecognized sec tion and content) Personnel Name: TAPAN ZAZUETA MD Address: [address] [facility] [place] [address] Telecom: Team Status: Inactive Member Role Status Dates [...] Status: Active Member Role Status Dates Herberth Bermudez MD Attending Provider Active Start : March 06, 2024 Shaikh Lev MD Primary Care Provider Active Start: March 06, 2024 Team Status: Inactive Member Role Status Dates Shaikh Lev MD Primary Care Provider Active Start: March 14, 2024 End: March 14, 2024 Herberth Bermudez MD Attending Provider Active Start : March 14, 2024 End: March 14, 2024 Box Feeder Relationship Specialty Start Date End Date Tapan Zazueta MD [address] [place] [address] PCP - General Family Medicine 06/10/24 Ariella Mathis DO [address] [place] [address] Referring Physician Neurology 01/02/24 Aida Reese NP [address] [place] [address] Nurse Practitioner Family Medicine 06/10/24 Box Feeder Relationship Specialty Start Date End Date Tapan Zazueta MD [address] [place] [phone] PCP - General Family Medicine 06/10/24 Ariella Mathis DO [address] [place] [address] Referring Physician Neurology 01/02/24 Aida Reese NP [address] [place] [address] Nurse Practitioner Family Medicine 06/10/24 Box Feeder Relationship Specialty Start Date End Date Tapan Zazueta MD [address] [place] [address] PCP - General Family Medicine 06/10/24 Ariella Mathis DO [address] [place] [address] Referring Physician Neurology 01/02/24 Aida Reese NP [address] [place] [address] Nurse Practitioner Family Medicine 06/10/24 Box Feeder Relationship Specialty Start Date End Date Tapan Zazueta MD [address] [place] [address] PCP - General Family Medicine 06/10/24 Ariella Mathis DO [address] [place] [address] Referring Physician Neurology 01/02/24 Aida Reese NP [address] [place] [address] Nurse Practitioner Family Medicine 06/10/24 Box Feeder Relationship Specialty Start Date End Date Tapan Zazueta MD [address] [place] [address] PCP - General Family Medicine 06/10/24 Ariella Mathis DO [address] [place] [address] Referring Physician Neurology 01/02/24 Aida Reese NP [address] [place] [address] Nurse Practitioner Family Medicine 06/10/24 Team Status: Active Member Role Status Dates Aida Reese TRANSIT VEHICLE INSPECTOR-C Primary Care Provider Ac tive Team Status: Active Member Role Status Dates Aida Reese TRANSIT VEHICLE INSPECTOR-C Primary Care Provider Ac tive Start: June 29, 2024 Yunior Stock DO Attending Provider Active Sta rt: June 29, 2024 Team Status: Active Member Role Status Dates Aida Reese TRANSIT VEHICLE INSPECTOR-C Primary Care Provider Ac tive Start: August [...] 2024 End: September 05, 2024 Aida Reese TRANSIT VEHICLE INSPECTOR-C Primary Care Provider Ac tive Start: September 05, 2024 End: September 05, 2024 Box Feeder Relationship Specialty Start Date End Date Tapan Zazueta MD [address] [place] [address] PCP - General Family Medicine 06/10/24 Ariella Mathis DO [address] [place] [address] Referring Physician Neurology 01/02/24 Aida Reese NP [address] [place] [address] Nurse Practitioner Family Medicine 06/10/24 Box Feeder Relationship Specialty Start Date End Date Tapan Zazueta MD [address] [place] [address] PCP - General Family Medicine 06/10/24 Ariella Mathis DO [address] [place] [address] Referring Physician Neurology 01/02/24 Aida Reese NP [address] [place] [address] Nurse Practitioner Family Medicine 06/10/24 Box Feeder Relationship Specialty Start Date End Date Tapan Zazueta MD [address] [place] [address] PCP - General Family Medicine 06/10/24 Ariella Mathis DO [address] [place] [address] Referring Physician Neurology 01/02/24 Aida Reese NP [address] [place] [address] Nurse Practitioner Family Medicine 06/10/24 Box Feeder Relationship Specialty Start Date End Date Tapan Zazueta MD [address] [place] [address] PCP - General Family Medicine 06/10/24 Ariella Mathis DO [address] [place] [address] Referring Physician Neurology 01/02/24 Aida Reese NP [address] [place] [address] Nurse Practitioner Family Medicine 06/10/24 Box Feeder Relationship Specialty Start Date End Date Tapan Zazueta MD [address] [place] [address] PCP - General Family Medicine 06/10/24 Ariella Mathis DO [address] [place] [address] Referring Physician Neurology 01/02/24 Aida Reese NP [address] [place] [address] Nurse Practitioner Family Medicine 06/10/24 Box Feeder Relationship Specialty Start Date End Date Tapan Zazueta MD [address] [place] [address] PCP - General Family Medicine 06/10/24 Ariella Mathis DO [address] [place] [address] Referring Physician Neurology 01/02/24 Aida Reese NP [address] [place] [address] Nurse Practitioner Family Medicine 06/10/24 Box Feeder Relationship Specialty Start Date End Date Tapan Zazueta MD [address] [place] [address] PCP - General Family Medicine 06/10/24 Ariella Mathis DO [address] [place] [address] Referring Physician Neurology 01/02/24 Aida Reese NP [address] [place] [address] Nurse Practitioner Family Medicine 06/10/24 Box Feeder Relationship Specialty Start Date End Date Tapan Zazueta MD [address] [place] [address] PCP - General Family Medicine 06/10/24 Ariella Mathis DO [address] [place] [address] Referring Physician Neurology 01/02/24 Aida Reese NP [address] [place] [address] Nurse Practitioner Family Medicine 06/10/24 Box Feeder Relationship Specialty Start Date End Date Tapan Zazueta MD [address] [place] [address] PCP - General Family Medicine 06/10/24 Ariella Mathis DO [address] [place] [address] Referring Physician Neurology 01/02/24 Aida Reese NP [address] [place] [address] Nurse Practitioner Family Medicine 06/10/24 Box Feeder Relationship Specialty Start Date End Date Tapan Zazueta MD [address] [place] [address] PCP - General Family Medicine 06/10/24 Ariella Mathis DO [address] [place] [address] Referring Physician Neurology 01/02/24 Aida Reese NP [address] [place] [address] Nurse Practitioner Family Medicine 06/10/24 Box Feeder Relationship Specialty Start Date End Date Tapan Zazueta MD [address] [place] [address] PCP - General Family Medicine 06/10/24 Ariella Mathis DO [address] [place] [address] Referring Physician Neurology 01/02/24 Aida Reese NP [address] [place] [address] Nurse Practitioner Family Medicine 06/10/24 Box Feeder Relationship Specialty Start Date End Date Tapan Zazueta MD [address] [place] [address] PCP - General Family Medicine 06/10/24 Ariella Mathis DO [address] [place] [address] Referring Physician Neurology 01/02/24 Aida Reese NP [address] [place] [address] Nurse Practitioner Family Medicine 06/10/24 Box Feeder Relationship Specialty Start Date End Date Tapan Zazueta MD [address] [place] [address] PCP - General Family Medicine 06/10/24 Ariella Mathis DO [address] [place] [address] Referring Physician Neurology 01/02/24 Aida Reese NP [address] [place] [address] Nurse Practitioner Family Medicine 06/10/24 Box Feeder Relationship Specialty Start Date End Date Tapan Zazueta MD [address] [place] [address] PCP - General Family Medicine 06/10/24 Ariella Mathis DO [address] [place] [address] Referring Physician Neurology 01/02/24 Aida Reese NP [address] [place] [address] Nurse Practitioner Family Medicine 06/10/24 Box Feeder Relationship Specialty Start Date End Date Tapan Zazueta MD [address] [place] [address] PCP - General Family Medicine 06/10/24 Ariella Mathis DO [address] [place] [address] Referring Physician Neurology 01/02/24 Aida Reese NP [address] [place] [address] Nurse Practitioner Family Medicine 06/10/24 Team Status: Inactive Member Role Status Dates Allan Lacey MD Attending Provider Active Start: September 12, 2024 End: September 12, 2024 Aida Reese NP-C Primary Care Provider Ac tive Start: September 12, 2024 End: September 12, 2024 Box Feeder Relationship Specialty Start Date End Date Tapan Zazueta MD [address] [place] [address] PCP - General Family Medicine 06/10/24 Ariella Mathis DO [address] [place] [address] Referring Physician Neurology 01/02/24 Aida Reese NP [address] [place] [address] Nurse Practitioner Family Medicine 06/10/24 Box Feeder Relationship Specialty Start Date End Date Tapan Zazueta MD [address] [place] [address] PCP - General Family Medicine 06/10/24 Ariella Mathis DO [address] [place] [address] Referring Physician Neurology 01/02/24 Aida Reese NP [address] [place] [address] Nurse Practitioner Family Medicine 06/10/24 Box Feeder Relationship Specialty Start Date End Date Tapan Zazueta MD [address] [place] [address] PCP - General Family Medicine 06/10/24 Ariella Mathis DO [address] [place] [address] Referring Physician Neurology 01/02/24 Aida Reese NP [address] [place] [address] Nurse Practitioner Family Medicine 06/10/24 Box Feeder Relationship Specialty Start Date End Date Tapan Zazueta MD [address] [place] [address] PCP - General Family Medicine 06/10/24 Ariella Mathis DO [address] [place] [address] Referring Physician Neurology 01/02/24 Aida Reese NP [address] [place] [address] Nurse Practitioner Family Medicine 06/10/24 Box Feeder Relationship Specialty Start Date End Date Tapan Zazueta MD [address] [place] [address] PCP - General Family Medicine 06/10/24 Ariella Mathis DO [address] [place] [address] Referring Physician Neurology 01/02/24 Aida Reese NP [address] [place] [address] Nurse Practitioner Family Medicine 06/10/24 Box Feeder Relationship Specialty Start Date End Date Tapan Zazueta MD [address] [place] [address] PCP - General Family Medicine 06/10/24 Ariella Mathis DO [address] [place] [address] Referring Physician Neurology 01/02/24 Aida Reese NP [address] [place] [address] Nurse Practitioner Family Medicine 06/10/24 Box Feeder Relationship Specialty Start Date End Date Tapan Zazueta MD [address] [place] [address] PCP - General Family Medicine 06/10/24 Ariella Mathis DO [address] [place] [address] Referring Physician Neurology 01/02/24 Aida Reese NP [address] [place] [address] Nurse Practitioner Family Medicine 06/10/24 Box Feeder Relationship Specialty Start Date End Date Tapan Zazueta MD [address] [place] [address] PCP - General Family Medicine 06/10/24 Ariella Mathis DO [address] [place] [address] Referring Physician Neurology 01/02/24 Aida Reese NP [address] [place] [address] Nurse Practitioner Family Medicine 06/10/24 Box Feeder Relationship Specialty Start Date End Date Tapan Zazueta MD [address] [place] [address] PCP - General Family Medicine 06/10/24 Ariella Mathis DO [address] [place] [address] Referring Physician Neurology 01/02/24 Aida Reese NP [address] [place] [address] Nurse Practitioner Family Medicine 06/10/24 Box Feeder Relationship Specialty Start Date End Date Tapan Zazueta MD [address] [place] [address] PCP - General Family Medicine 06/10/24 Ariella Mathis DO [address] [place] [address] Referring Physician Neurology 01/02/24 Aida Reese NP [address] [place] [address] Nurse Practitioner Family Medicine 06/10/24 Box Feeder Relationship Specialty Start Date End Date Tapan Zazueta MD [address] [place] [address] PCP - General Family Medicine 06/10/24 Ariella Mathis DO [address] [place] [address] Referring Physician Neurology 01/02/24 Aida Reese NP [address] [place] [address] Nurse Practitioner Family Medicine 06/10/24 Box Feeder Relationship Specialty Start Date End Date Tapan Zazueta MD [address] [place] [address] PCP - General Family Medicine 06/10/24 Ariella Mathis DO [address] [place] [address] Referring Physician Neurology 01/02/24 Aida Reese NP [address] [place] [address] Nurse Practitioner Family Medicine 06/10/24 Box Feeder Relationship Specialty Start Date End Date Tapan Zazueta MD [address] [place] [address] PCP - General Family Medicine 06/10/24 Ariella Mathis DO [address] [place] [address] Referring Physician Neurology 01/02/24 Aida Reese NP [address] [place] [address] Nurse Practitioner Family Medicine 06/10/24 Box Feeder Relationship Specialty Start Date End Date Tapan Zazueta MD [address] [place] [address] PCP - General Family Medicine 06/10/24 Ariella Mathis DO [address] [place], [place] [address] Referring Physician Neurology 01/02/24 Aida Reese NP [address] [place] [address] Nurse Practitioner Family Medicine 06/10/24 Box Feeder Relationship Specialty Start Date End Date Tapan Zazueta MD [address] [place] [address] PCP - General Family Medicine 06/10/24 Ariella Mathis DO [address] [place], [place] [address] Referring Physician Neurology 01/02/24 Aida Reese NP [address] [place] [address] Nurse Practitioner Family Medicine 06/10/24 Box Feeder Relationship Specialty Start Date End Date Tapan Zazueta MD [address] [place] [address] PCP - General Family Medicine 06/10/24 Ariella Mathis DO [address] [place] [address] Referring Physician Neurology 01/02/24 Aida Reese NP [address] [place] [address] Nurse Practitioner Family Medicine 06/10/24 Box Feeder Relationship Specialty Start Date End Date Tapan Zazueta MD [address] [place] [address] PCP - General Family Medicine 06/10/24 Ariella Mathis DO [address] [place], [place] [address] Referring Physician Neurology 01/02/24 Aida Reese NP [address] [place] [address] Nurse Practitioner Family Medicine 06/10/24 Box Feeder Relationship Specialty Start Date End Date Tapan Zazueta MD [address] [place] [address] PCP - General Family Medicine 06/10/24 Areilla Mathis DO [address] [place], [place] [address] Referring Physician Neurology 01/02/24 Aida Reese NP [address] [place] [address] Nurse Practitioner Family Medicine 06/10/24 Box Feeder Relationship Specialty Start Date End Date Tapan Zazueta MD [address] [place] [address] PCP - General Family Medicine 06/10/24 Ariella Mathis DO [address] [place] [address] Referring Physician Neurology 01/02/24 Aida Reese NP [address] [place] [address] Nurse Practitioner Family Medicine 06/10/24 Box Feeder Relationship Specialty Start Date End Date Tapan Zazueta MD [address] [place] [address] PCP - General Family Medicine 06/10/24 Ariella Mathis DO [address] [place], [place] [address] Referring Physician Neurology 01/02/24 Aida Reese NP [address] [place] [address] Nurse Practitioner Family Medicine 06/10/24 Box Feeder Relationship Specialty Start Date End Date Tapan Zazueta MD [address] [place] [address] PCP - General Family Medicine 06/10/24 Ariella Mathis DO [address] [place] [address] Referring Physician Neurology 01/02/24 Aida Reese NP [address] [place] [address] Nurse Practitioner Family Medicine 06/10/24 Box Feeder Relationship Specialty Start Date End Date Tapan Zazueta MD [address] [place] [address] PCP - General Family Medicine 06/10/24 Ariella Mathis DO [address] [place] [address] Referring Physician Neurology 01/02/24 Aida Reese NP [address] [place] [address] Nurse Practitioner Family Medicine 06/10/24 Box Feeder Relationship Specialty Start Date End Date Tapan Zazueta MD [address] [place] [address] PCP - General Family Medicine 06/10/24 Ariella Mathis DO [address] [place] [address] Referring Physician Neurology 01/02/24 Aida Reese NP [address] [place] [address] Nurse Practitioner Family Medicine 06/10/24 Goals (unrecognized [...] BE BASED ON THE PRIMARY CLINICAL RECORDS. [employer] [facility]. provides no warranty or guarantee of the accuracy or completeness of information in this document.
--- OUTSIDE RECORDS SUMMARY | 2025-07-10 00:41 | XMS_ITS | Encounter Summary ---
Author Organization [facility] Address [address] [facility] [place] [address] Care Team Providers Care I&C Tech Name Role Phone Shaikh BONNY Ohara Primary Care Provider [phone] Shaikh BONNY Ohara Primary Care Provider [phone] Ariella Mathis DO Unavailable [phone] Tapan Barboza MD Primary Care Provider [phone] Mae Reese DEBURRING MACHINE OPERATOR Unavailable [phone] Encounter Details Date Type Department Care Team [...] How often do you attend chur or anabaptist services? More than 4 times per year 10/26/2023 Do you belong to any clubs o r organizations such as taoist groups, unions, fraRoundarch or athletic groups, or school groups? No [...] care, and heating? Not very hard 10/26/2023 [facility]at ional [facility] - [...] a long term (including now)? No 10/26/2023 Comments Unknown Sex [...] Dermatology [address] [place] [address] Denise Lazo MD [address] [place] [address] 12/15/2026 9:00 AM EST Office [facility] [address] [facility] [place] [address] Yuri Bowers PA [address] [place] [address] documented as of this encounter Procedures Procedure Name Priority Date/Time Associated Diagnosis Comments XR CHEST 2V 10/25/2023 9:45 AM EST documented in this encounter Results * XR CHEST 2V (10/25/2023 9:45 AM EST) Anatomical Region Laterality Modality Other 10/25/2023 9:45 AM EST Narrative 10/25/2023 9:48 [place] [address] XRay Report Signed Patient: DIANA CHAMPION MR#: [id number] : 1955 Acct:[id number] Age/Sex: 68 / F ADM Date: 10/25/23 Loc: RAD Attending Dr: Bo Mcclain D.O. Ordering Physician: Bo Mcclain D.O. Date of Service: 10/25/23 Procedure(s): XR chest 2V Accession Number(s): [id number] cc: Shaikh Eva Ohara; Bo Mcclain D.O. [address] [id number] Patient Name: DIANA CHAMPION MRN: [id number] date: 1955 Sex: F Assigned Patient Location: RAD Current Patient Location: RAD Accession/Order Number: [id number] Exam Date: 10/25/2023 09:31 Report Date: 10/25/2023 [...] Brittany Stephens M.D. Signed By: 10/25/2348 DD/ 4 TD/TT: Physical Science Aide: Procedure Note Radiology, Radiologist, - 10/25/2023 [place] [address] XRay Report Signed Patient: DIANA CHAMPION AMR#: [id number] : 1955cct:[id number] Age/Sex: 68 / FADM Date: 10/25/23 Loc: RAD Attending Dr: Bo Mcclain D.O. Ordering Physician: Bo Mcclain D.O. Date of Service: 10/25/23 Procedure(s): XR chest 2V Accession Number(s): [id number] cc: Shaikh Eva Ohara; Bo Mcclain D.O. The [address] [address] Patient Name: DIANA CHAMPION MRN: [id number] date: 1955 Sex: F Assigned Patient Location: [facility] Current Patient Location: [facility] Accession/Order Number: [id number] Exam Date: 10/25/2023 09:31 Report Date: 10/25/2023 [...] Stephens M.D. Signed By:10/25/23947 DD/ 4 TD/TT: Physical Science Aide: us Generic External Data Provider [facility] Final Result documented in this encounter Visit Diagnoses Not on filedocumented in this encounter Care Teams I&C Tech Relationship Specialty Start Date End Date Shaikh Ohara MD PCP - General Internal Medicine 11/06/22 12/27/23 Shaikh Ohara MD [address] [place] [address] PCP - General Internal Medicine 12/28/23 06/09/24 Tapan Barboza MD [address] [place] [address] PCP - General Family Medicine 06/10/24 Ariella Mathis DO [address] [place] [address] Referring Physician Neurology 01/02/24 Mae Reese NP [address] [place] [address] Nurse Practitioner Family Medicine 06/10/24 documented as of this encounter
--- OUTSIDE RECORDS SUMMARY | 2025-07-10 00:41 | XMS_ITS | Encounter Summary ---
Author Organization [facility] Address [address] [facility] [place] [address] Care Team Providers Care Wireless Retail Manager Name Role Phone Shaikh BONNY Ohara Primary Care Provider [phone] Ariella Mathis DO Unavailable [phone] Tapan Barboza MD Primary Care Provider [phone] Mae Reese POT ROOM SUPERVISOR Unavailable [phone] Encounter Details Date Type Department Care Team [...] How often do you attend chur or caodaism services? More than 4 times [...] Recorded Patient Health Questionnaire-2 Score 0 01/25/2024 [facility]at ional [facility] - [...] place to sleep or slept in a mcfp (including now)? No 10/26/2023 Comments Unknown Sex [...] Visit [facility] [address] [facility] [address] [place] [address] Denise Lazo MD [address] [place] [address] 12/15/2026 9:00 AM EST Office Visit [facility] [address] [place] [address] Yuri Bowers PA [address] [place] [address] documented as of this encounter Procedures Procedure Name Priority Date/Time Associated Diagnosis Comments XR CHEST 1 V 02/03/2024 9:41 AM EDT documented in this encounter Results * XR CHEST 1 V (02/03/2024 9:41 AM EDT) Anatomical Region Laterality Modality Other 02/03/2024 9:41 AM EDT Narrative 02/03/2024 9:43 [place] [address] XRay Report Signed Patient: DIANA CHAMPION MR#: [id number] : 1955 Acct:[id number] Age/Sex: 68 / F ADM Date: Loc: ER Attending Dr: Ordering Physician: Tere Rodriguez Date of Service: 02/03/24 Procedure(s): XR chest 1V Accession Number(s): [id number] cc: Shaikh Eva Ohara; Tere Rodriguez [place] [id number] Patient Name: DIANA CHAMPION MRN: [id number] date: 1955 Sex: F Assigned Patient Location: ED.MAIN Current Patient Location: ER Accession/Order Number: [id number] Exam Date: 02/03/2024 09:15 Report Date: 02/03/2024 [...] have cleared elsewhere. Electronically authenticated by: BARBARA TILLMAN Date: 02/03/2024 09:41 Dictated By: Barbara Tillman M.D. Signed By: 02/03/24942 DD/ 0 TD/TT: Hand Ii Tube Bender: Procedure Note Radiology, Radiologist, - 02/07/[address] [address] XRay Report Signed Patient: DIANA CHAMPION AMR#: [id number] : 1955cct:[id number] Age/Sex: 68 / FADM Date: Loc: ER Attending Dr: Ordering Physician: Tere Rodriguez Date of Service: 02/03/24 Procedure(s): XR chest 1V Accession Number(s): [id number] cc: Shaikh Eva Ohara; Tere Rodriguez [address] [address] Patient Name: DIANA CHAMPION MRN: [facility]:[id number] date: 1955 Sex: F Assigned Patient Location: ED.MAIN Current Patient Location: ER Accession/Order Number: [id number] Exam Date: 02/03/2024 09:15 Report Date: 02/03/2024 [...] tohave cleared elsewhere. Electronically authenticated by: BARBARA TILLMAN Date: 02/03/2024 09:41 Dictated By: Barbara Tillman M.D. Signed By:02/03/24942 DD/ 0 TD/TT: Hand Ii Tube Bender: us Generic External Data Provider [facility] Final Result documented in this encounter Visit Diagnoses Not on filedocumented in this encounter Additional Health Concerns Assessment Noted Time PHQ-9 Depression Total Score: 7 11/02/20 23 3:03 PM EST documented as of this encounter Care Teams Wireless Retail Manager Relationship Specialty Start Date End Date Shaikh Ohara MD [address] [place] [address] PCP - General Internal Medicine 12/28/23 06/09/24 Tapan Barboza MD [address] [place] [address] PCP - General Family Medicine 06/10/24 Ariella Mathis DO [address] [place] [address] Referring Physician Neurology 01/02/24 Mae Reese NP [address] [place] [address] Nurse Practitioner Family Medicine 06/10/24 documented as of this encounter
--- OUTSIDE RECORDS SUMMARY | 2025-07-10 00:41 | XMS_ITS | Encounter Summary ---
Author Organization [facility] Address [address] [place] [address] Care Team Providers Care Planner Internship Name Role Phone Unavailable Primary Care Provider Unavailabl e Source Comments In the event this information is protected by the Federal Confidentiality of Alcohol and Drug AbusePatient Records regulations: The Federal rules restrict any use of the information to criminally investigate or prosecute any alcohol or drug abuse patient.[facility] Encounter Details Date Type Department [...]
--- OUTSIDE RECORDS SUMMARY | 2025-07-10 00:41 | XMS_ITS | Encounter Summary ---
Author Organization [facility] Address [address] [place] [address] Care Team Providers Care Insurance Claims Clerk Name Role Phone Ariella Mathis DO Unavailable [phone] Tapan Barboza MD Primary Care Provider [phone] Mae Reese INSURANCE COLLECTOR Unavailable [phone] Encounter Details Date Type Department Care Team (Late st Contact Info) Description 08/12/2024 Orders Only [facility] [address] [place] [address] Shaikh Ohara MD [address] [place] [address] Social History Tobacco Use Types Packs/Day Years [...] week 10/26/2023 How often do you attend [facility] or scientologist services? More than 4 [...] Patient Health Questionnaire-2 Score 0 07/11/2024 [facility] [place] of Occupat ional Health - Occupational Stress [...] in a alf (including now)? No 10/26/2023 Comments Unknown Sex [...] Dermatology [address] [place] [address] Denise Lazo MD [address] [place] [address] 12/15/2026 9:00 AM EST Office Visit [facility] [address] [place] [address] Yuri Bowers PA [address] [place] [address] documented as of this encounter Goals Goal Patient Goal Type Associated Problems Recent Progress Patient-Stated? Author Help patient manage antidepressant medication Care Plan Patient on antidepressant monitoring plan Katerina Carrington documented as of this encounter Procedures Procedure Name Priority Date/Time Associated Diagnosis Comments XR CHEST 1 VIEW Routine 08/12/2024 9:15 AM EDT documented in this encounter Results * XR chest 1 view (08/12/2024 9:15 AM EDT) Anatomical Region Laterality Modality Chest Radiographic Melania ging us Shaikh Lev DRAPER IMG XR PROCEDURES Final Result documented in this encounter Visit Diagnoses Not on filedocumented in this encounter Additional Health Concerns Active Problems Noted Date Diagnosed Date Patient on antidepressant monitoring plan 2023 Assessment Noted Time PHQ-9 Depression Total Score: 7 11/02/20 23 3:03 PM EST documented as of this encounter Care Teams Insurance Claims Clerk Relationship Specialty Start Date End Date Tapan Barboza MD [address] [place] [address] PCP - General Family Medicine 06/10/24 Ariella Mathis DO [address] [place] [address] Referring Physician Neurology 01/02/24 Mae Reese NP [address] [place] [address] Nurse Practitioner Family Medicine 06/10/24 documented as of this encounter
--- OUTSIDE RECORDS SUMMARY | 2025-07-10 00:41 | XMS_ITS | Encounter Summary ---
Author Organization [facility] Address [address] [place] [address] Care Team Providers Care Deburring Machine Operator Name Role Phone Ariella Mathis DO Unavailable [phone] Tapan Barboza MD Primary Care Provider [phone] Mae Reese FINAL INSPECTOR BALANCE WHEEL Unavailable [phone] Encounter Details Date Type Department Care Team (Late st Contact Info) Description 05/12/2025 Abstract [facility] [address] [place] [address] Kaylene López NP [address] [place] [address] Social History Tobacco Use Types Packs/Day Years [...] any clubs o r organizations such as spiritism groups, unions, fraternal or athletic groups, or [...] any time in the past 12 m [facility], were you homeless or living [...] [address] [place] [address] Denise Lazo MD [address] [place] [address] 12/15/2026 9:00 AM EST Office [facility] [address] [facility] [place] [address] Yuri Bowers PA [address] [place] [address] documented as of this encounter Goals [...] documented as of this encounter Care Teams Deburring Machine Operator Relationship Specialty Start Date End Date Tapan Barboza MD [address] [place] [address] PCP - General Family Medicine 06/10/24 Ariella Mathis DO [address] [place] [address] Referring Physician Neurology 01/02/24 Mae Reese NP [address] [place] [address] Nurse Practitioner Family Medicine 06/10/24 documented as of this encounter
--- OUTSIDE RECORDS SUMMARY | 2025-07-10 00:42 | XMS_ITS | Encounter Summary ---
Author Organization [facility] Address [address] [place] [address] [place] [address] Care Team Providers Care Body Component Engineer Name Role Phone Shaikh BONNY Ohara Primary Care Provider [phone] Ariella Mathis DO Unavailable [phone] Tapan Barboza MD Primary Care Provider [phone] Mae Reese CONVENIENCE STORE MANAGER Unavailable [phone] Encounter Details Date Type Department Care Team (Late st Contact Info) Description 02/29/2024 Clinisync Result Encounter [facility] External Department Unsolicited Kaylene López, RIKKI [address] [place] [address] Social History Tobacco Use Types Packs/Day Years [...] week 10/26/2023 How often do you attend [facility] or orthodox services? More than 4 times per year 10/26/2023 Do you belong to any clubs o r organizations such as restorationist groups, unions, fraternal or athletic groups, or [...] Recorded Patient Health Questionnaire-2 Score 0 02/26/2024 [facility] [place] of Occupat ional Health - Occupational Stress [...] Dermatology [address] [place] [address] Denise Lazo MD [address] [place] [address] 12/15/2026 9:00 AM EST Office Visit [facility] [address] [place] [address] Yuri Bowers PA [address] [place] [address] documented as of this encounter Procedures Procedure Name Priority Date/Time Associated Diagnosis Comments MM TOMOSYNTHESIS SCREENING BI 02/29/2024 4:01 PM EDT documented in this encounter Results * MM TOMOSYNTHESIS SCREENING BI (02/29/2024 4:01 PM EDT) Anatomical Region Laterality Modality Other 02/29/2024 4:01 PM EDT Narrative 02/29/2024 4:02 [place] [address] Mammography Report Signed Patient: DIANA CHAMPION MR#: [id number] : 1955 Acct:[id number] Age/Sex: 68 / F ADM Date: 02/28/24 Loc: MAMMO Attending Dr: Kaylene López NP Ordering Physician: Kaylene López NP Results: Date of Service: 02/28/24 Follow Up: Procedure(s): MM tomosynthesis screening BI Accession Number(s): [id number] cc: Kaylene López NP; Shaikh Eva Ohara Patient Name: DIANA CHAMPION MR#: [id number] : 1955 Exam Date: 02/28/2024 Ordering Doctor: CLEO López [facility] RADIOLOGY REPORT PROCEDURE: MM TOMOSYNTHESIS SCREENING BI [...] radiation, chemotherapy Family Cancers None LOCATION: The [facility] BREAST COMPOSITION: The breasts are [...] Signed By: 02/29/24 1602 DD/ 1601 TD/TT: Silver Solution Mixer: Procedure Note Radiology, Radiologist, MD - 02/29/2024 [place] [address] Mammography Report Signed Patient: DIANA CHAMPION AMR#: [id number] : 1955cct:[id number] Age/Sex: 68 / FADM Date: 02/28/24 Loc: MAMMO Attending Dr: Kaylene López NP Ordering Physician: Kaylene López NPResults: Date of Service: 02/28/24Follow Up: Procedure(s): MM tomosynthesis screening BI Accession Number(s): [id number] cc: Kaylene López NP; Shaikh Eva Ohara Patient Name: DIANA CHAMPION MR#: [id number] : 1955 Exam Date: 02/28/2024 Ordering Doctor: CLEO López REAL ESTATE AGENT/BROKER RADIOLOGY REPORT PROCEDURE: MM TOMOSYNTHESIS SCREENING BI [...] radiation, chemotherapy Family Cancers None LOCATION: The [facility] BREAST COMPOSITION: The breasts are [...] M.D. Signed By:02/29/24 1602 DD/ 1601 TD/TT: Silver Solution Mixer: us Kaylene López NP [facility] Final Result documented in this encounter Visit Diagnoses Not on filedocumented in this encounter Additional Health Concerns Assessment Noted Time PHQ-9 Depression Total Score: 7 11/02/20 23 3:03 PM EST documented as of this encounter Care Teams Body Component Engineer Relationship Specialty Start Date End Date Shaikh Ohara MD [address] [place] [address] PCP - General Internal Medicine 12/28/23 06/09/24 Tapan Barboza MD [address] [place] [address] PCP - General Family Medicine 06/10/24 Ariella Mathis DO [address] [place] [address] Referring Physician Neurology 01/02/24 Mae Reese NP [address] [place] [address] Nurse Practitioner Family Medicine 06/10/24 documented as of this encounter
--- OUTSIDE RECORDS SUMMARY | 2025-07-10 00:42 | XMS_ITS | Clinical Summary ---
Author Organization [facility] Address [address] [place] [address] Care Team Providers Care Direct Support Professional Name Role Phone Ariella Mathis DO Unavailable [phone] Tapan Barboza MD Primary Care Provider [phone] Mae Reese ASP NET C DEVELOPER Unavailable [phone] Allergies Active Allergy Reactions Criticality Noted Date [...] daily for 7 day Recent hospitalization to [facility]: back to back, 01/02/25 and 01/08/25 [...] invasive vent at night Chris is managing slackman Assessment & Plan (02/17/2025 6:09 AM EDT): Is oxygen dependant, non invasive vent at night Chris is managing slackman Assessment & Plan (01/16/2025 10:31 AM EDT): [...] severe persistent asthma and was discharged from [facility] 3 days ago for acute respiratory [...] significantly elevated right sided pressure at 65 [facility] Cardiology Assessment & Plan (01/16/2025 10:31 AM EDT): Last ECHO currently in the chart is form 05/29: EF 50%, significantly elevated right sided pressure at 65 [facility] Cardiology Assessment & Plan (07/11/2024 8:54 AM EDT): Follows Cardiology- [facility] Was seen in May 2024 [...] inhaler, trelegy, oxygen Follows with Pulmonology [facility] Assessment & Plan (02/17/2025 6:08 AM EDT): Current meds: albuterol nebs and inhaler, trelegy, oxygen Follows with Pulmonology [facility] Assessment & Plan (01/02/2025 3:25 PM EST): [facility] slackman Assessment & Plan (11/28/2024 1:37 PM EST): Was admitted to [facility] for COPD with acute exacerbation. Was [...] conditions and weakness will send her to [facility] ER for evaluation DD: pneumonia, covid, [...] prednisone, I directed her to go to [facility] for direct admission. I spoke to [...] with Pulm and she will discuss possibly residential prednisone for her severe Asthma/COPD. Patient instructed [...] 10:34 AM EST): Recent hospital admission at [facility] for acute resp failure due to [...] will also inform the ED provider at [facility] and update them on the reason [...] finished her oral abx prescribed by her slackman. Continues to have bronchospasm, wheezing, chest tightness [...] (12/05/2023): Added automatically from request for surgery [id number] Added automatically from request for surgery [id number] Arthritis of right knee 10/17/20180 02/2025 Lumbar spondylosis 05/22/2018 Overview (12/05/2023): Added automatically from request for surgery [id number] Added automatically from request for surgery [id number] Encounters Date Type Department Care Team Description 06/18/2025 Refill [facility] [address] [place] [address] Kaylene López NP Moderate episode of recurrent major depressive disorder (HCC) 06/16/2025 Telephone [facility] [address] [place] [address] Kaylene López NP 06/04/2025 Refill [facility] [address] [place] [address] Kaylene López NP Skin pustule 05/22/2025 Abstract [facility] [address] [place] [address] Kaylene López NP 05/19/2025 9:00 AM EDT Office Visit [facility] [address] [place] [address] Kaylene López NP Moderate episode of recurrent major depressive disorder (HCC) (Primary Dx); Morbid (severe) obesity due to excess calories ([facility]-HCC); Candidiasis of breast; Skin pustule; RLS (restless legs syndrome) 05/19/2025 Telephone [facility] [address] [place] [address] Kaylene López NP 05/19/2025 Bamboo flowsheet [facility] [address] [place] [address] Kaylene López NP 05/16/2025 Travel 05/15/2025 Abstract [facility] [address] [place] [address] Kaylene López NP 05/12/2025 Abstract [facility] [address] [place] [address] Kaylene López NP 05/12/2025 Refill [facility] [address] [place] [address] Kaylene López, RIKKI Chronic heart failure with preserved ejection fraction (HCC) (Primary Dx); Edema of both lower extremities 05/12/2025 Telephone [facility] [address] [place] [address] Kaylene López, RIKKI 04/30/2025 Clinisync Result Encounter [facility] External Department Unsolicited Provider, Generic External Data 04/30/2025 Abstract [facility] [address] [place] [address] Kaylene López NP 04/29/2025 Abstract [facility] [address] [place] [address] Kaylene López NP 04/29/2025 Refill [facility] [address] [place] [address] Kaylene López NP Restless leg syndrome 04/27/2025 Refill [facility] [address] [place] [address] Kaylene López NP Chronic bilateral low back pain without sciatica 04/23/2025 Refill [facility] [address] [facility] [place] [address] Kaylene López NP Moderate episode of recurrent major depressive disorder (HCC) (Primary Dx) 04/23/2025 Telephone [facility] [address] [place] [address] Kaylene López NP 04/09/2025 11:00 AM EDT Office Visit [facility] [address] [place] [address] Kaylene López NP Moderate episode of recurrent major depressive disorder (HCC) (Primary Dx); Pulmonary emphysema, unspecified emphysema type (HCC); Chronic respiratory failure with hypoxia (HCC); Morbid (severe) obesity due to excess calories ([facility]-HCC); Restless leg syndrome 04/09/2025 Bamboo flowsheet [facility] [address] [place] [address] Kaylene López NP from Last 3 Months Immunizations Immunization Administration Dates Next Due Influenza, High Dose Seasona l, Preservative Free 09/06/2024 Influenza, High-dose Seasona l, Quadrivalent, Preservative Free 08/26/2023,08/04/2022,08/06/2021 Influenza, Split (incl. [place] f[place] antigen) 08/09/2017 Influenza, Unspecified 09/06/2024,2022,08/04/2022,08/06,08/07/2020,08/09/2019,08/08/2018 ,08/10/2017 Influenza, injectable, quadr ivalent, preservative free 08/07/2020,08/09/2019,08/08/2018,08/10 Novel [id number], preservative-free 09/02/2009 Pneumococcal Conjugate PCV 20 08/09/2023 [...] How often do you attend chur or worship services? More than 4 times per year 11/25/2024 Do you belong to any clubs o r organizations such as christian groups, unions, fraternal or athletic groups, or [...] in a mcfp (including now)? No 10/26/2023 Housing Stability Vital [...] time in the past 12 m [facility], were you homeless or living in a mcfp (including now)? No 11/25/2024 Comments Unknown Sex [...] 07/16/2025 2:45 PM EDT Office Visit [facility] [address] [place] [address] Denise Lazo MD [address] [place] [address] 12/15/2026 9:00 AM EST Office Visit [facility] [address] [place] [address] Yuri Bowers PA [address] [place] [address] Health Maintenance Due Date Last [...] EDT Narrative 04/30/2025 1:49 PM EDT The [place] [id number] XRay Report Signed Patient: DIANA CHAMPION MR#: [id number] : 1955 Acct:[id number] Age/Sex: 69 / F ADM Date: 04/30/25 Loc: RAD Attending Dr: Jose Saucedo NP Ordering Physician: Jose Saucedo NP Date of Service: 04/30/25 Procedure(s): XR hip RT min 2V Accession Number(s): [id number] cc: Kaylene López NP; Jose Saucedo NP The [place] [id number] Patient Name: DIANA CHAMPION MRN: [id number] date: 1955 Sex: F Assigned Patient Location: [facility] Current Patient Location: [facility] Accession/Order Number: [id number] Exam Date: 04/30/2025 13:45 Report Date: 04/30/2025 [...] Jr., D.O. 04/30/2025 1:46 PM Dictation Location: [place] [address] Electronically authenticated by: [id number] Y Date: 04/30/2025 13:46 Dictated By: Marcos Medina M.D. Signed By: 04/30/25 1349 DD/ 1346 TD/TT: Metal Treater: Procedure Note Radiology, Radiologist, MD - 04/30/2025 The [place] [id number] XRay Report Signed Patient: DIANA CHAMPION AMR#: [id number] : 1955cct:[id number] Age/Sex: 69 / FADM Date: 04/30/25 Loc: RAD Attending Dr: Jose Saucedo NP Ordering Physician: Jose Saucedo NP Date of Service: 04/30/25 Procedure(s): XR hip RT min 2V Accession Number(s): [id number] cc: Kaylene López ASP NET C DEVELOPER; Jose Saucedo NP The [place] [id number] Patient Name: DIANA CHAMPION MRN: [facility]:[id number] date: 1955 Sex: F Assigned Patient Location: RAD Current Patient Location: RAD Accession/Order Number: [id number] Exam Date: 04/30/2025 13:45 Report Date: 04/30/2025 [...] WITHOUT ACUTE BONY PROCESS.. Impression dictated by: Hima Rubin Jr.OJustice 04/30/2025 1:46 PM Dictation Location: [place] [address] Electronically authenticated by: [id number] Y Date: 3:46 Dictated By: Marcos Medina M.D. Signed By:04/30/25 1349 DD/ 1346 TD/TT: Metal Treater: Generic External Data Provider IMG XR PROCEDURES Final Result * Bilateral screening mammogram (03/03/2025 4:42 PM EDT) Anatomical Region Laterality Modality Breast Bilateral Mammography 03/03/2025 4:42 PM EDT Narrative 03/03/2025 4:43 [place] [address] Mammography Report Signed Patient: DIANA CHAMPION MR#: [id number] : 1955 Acct:[id number] Age/Sex: 69 / F ADM Date: 03/03/25 Loc: MAMMO Attending Dr: Kaylene López NP Ordering Physician: Kaylene López NP Results: Date of Service: 03/03/25 Follow Up: Procedure(s): MM screening mammo BI Accession Number(s): [id number] cc: Kaylene López NP Patient Name: DIANA CHAMPION MR#: [id number] : 1955 Exam Date: 03/03/2025 Ordering Doctor: [...] radiation, chemotherapy Family Cancers None LOCATION: [facility] BREAST COMPOSITION: The breasts are [...] Dictated By: Marcos Medina M.D. Signed By: 03/03/25 164 DD/ 41 TD/TT: Metal Treater: Procedure Note Radiology, Radiologist, - 03/03/2025 [place] [address] Mammography Report Signed Patient: DIANA CHAMPION AMR#: [id number] : 1955cct:[id number] Age/Sex: 69 / FADM Date: 03/03/25 Loc: MAMMO Attending Dr: Kaylene López ASP NET C DEVELOPER Ordering Physician: Kaylene López NPResults: Date of Service: 03/03/25Follow Up: Procedure(s): MM screening mammo BI Accession Number(s): [id number] cc: Kaylene López NP Patient Name: DIANA CHAMPION MR#: [id number] : 1955 Exam Date: 03/03/2025 Ordering Doctor: CLEO López CNP RADIOLOGY REPORT PROCEDURE: MM SCREENING MAMMO BI COMPARISON: MM TOMOSYNTHESIS SCREENING BI, 02/28/2024. MG MAMM [id number] PRATEEK CAD, 12/15/2022. MG MAMM SCREEN 3D PRATEEK CAD, 11/26/2021. MG MAMM BILSCRN W CAD DIG, 12/16/2013. INDICATIONS: Screening Calculator Name NCI Breast Cancer Risk Assessment Tool 5 Year Breast Cancer Risk 1.20% Lifetime Breast Cancer Risk 4.00% Personal Breast Cancer No Personal Ovarian Cancer No Treatments Excision, radiation, chemotherapy Family Cancers None LOCATION: [facility] BREAST COMPOSITION: The breasts are [...] Medina M.D. Signed By:03/03/251642 DD/ 41 TD/TT: Metal Treater: us Kaylene Aichholz ASP NET C DEVELOPER IMG BI PROCEDURES Final Result from Last 3 Months or Most Recently Relevant to Health Maintenance Additional Health Concerns Active Problems Noted Date Diagnosed Date Patient on antidepressant monitoring plan 2023 Insurance MEDICAID [place] AETNA MEDICARE ADVANTAGE Care Teams Direct Support Professional Relationship Specialty Start Date End Date Tapan Barboza MD [address] [place] [id number] PCP - General Family Medicine 06/10/24 Ariella Mathis DO [address] [place] [address] Referring Physician Neurology 01/02/24 Mae Reese NP [address] [place] [address] Nurse Practitioner Family Medicine 06/10/24
--- OUTSIDE RECORDS SUMMARY | 2025-07-10 00:42 | XMS_ITS | Encounter Summary ---
Author Organization [facility] Address [address] [place] [address] Care Team Providers Care Classroom Coordinator Name Role Phone Shaikh BONNY Ohara Primary Care Provider [phone] Ariella Mathis DO Unavailable [phone] Tapan Barboza MD Primary Care Provider [phone] Mae Reese ROCKET TEST FIRE WORKER Unavailable [phone] Encounter Details Date Type Department Care Team (Late st Contact Info) Description 04/03/2024 Clinisync Result Encounter [facility] External Department Unsolicited Shaikh Ohara MD [address] [place] [address] Social History Tobacco Use Types Packs/Day Years [...] How often do you attend [facility] or confucianism services? More than 4 [...] Recorded Patient Health Questionnaire-2 Score 0 04/03/2024 [facility] [place] of Occupat ional Health - Occupational Stress [...] Dermatology [address] [place] [address] Denise Lazo MD [address] [place] [address] 12/15/2026 9:00 AM EST Office Visit [facility] [address] [place] [address] Yuri Bowers PA [address] [place] [address] documented as of this encounter Procedures Procedure Name Priority Date/Time Associated Diagnosis Comments XR CHEST 2V 04/03/2024 4:27 PM EDT documented in this encounter Results * XR CHEST 2V (04/03/2024 4:27 PM EDT) Anatomical Region Laterality Modality Other 04/03/2024 4:27 PM EDT Narrative 04/03/2024 4:30 PM EDT The [address] [address] XRay Report Signed Patient: DIANA CHAMPION MR#: [id number] : 1955 Acct:[id number] Age/Sex: 68 / F ADM Date: 04/03/24 Loc: RAD Attending Dr: Shaikh Lev Velasquez Ordering Physician: Shaikh Eva Ohara Date of Service: 04/03/24 Procedure(s): XR chest 2V Accession Number(s): [id number] cc: Shaikh Eva Ohara The [address] [address] Patient Name: DIANA CHAMPION MRN: [id number] date: 1955 Sex: F Assigned Patient Location: RAD Current Patient Location: RAD Accession/Order Number: [id number] Exam Date: 04/03/2024 15:40 Report Date: 04/03/2024 [...] Signed By: 04/03/24 1630 DD/ 1627 TD/TT: Machine Feeder Floorperson: Procedure Note Radiology, Radiologist, MD - 04/03/2024 [place] [address] XRay Report Signed Patient: DIANA CHAMPION AMR#: [id number] : 1955cct:[id number] Age/Sex: 68 / FADM Date: 04/03/24 Loc: RAD Attending Dr: Shaikh Lev Velasquez Ordering Physician: Shaikh Eva Ohara Date of Service: 04/03/24 Procedure(s): XR chest 2V Accession Number(s): [id number] cc: Shaikh Eva Ohara The [place] [id number] Patient Name: DIANA CHAMPION MRN: [id number] date: 1955 Sex: F Assigned Patient Location: RAD Current Patient Location: RAD Accession/Order Number: [id number] Exam Date: 04/03/2024 15:40 Report Date: 04/03/2024 [...] M.D. Signed By:04/03/24 1630 DD/ 1627 TD/TT: Machine Feeder Floorperson: Shaikh Lev [facility] Final Result documented in this encounter Visit Diagnoses Not on filedocumented in this encounter Additional Health Concerns Assessment Noted Time PHQ-9 Depression Total Score: 7 11/02/20 23 3:03 PM EST documented as of this encounter Care Teams Classroom Coordinator Relationship Specialty Start Date End Date Shaikh Ohara MD [address] [place] [address] PCP - General Internal Medicine 12/28/23 06/09/24 Tapan Barboza MD [address] [place] [address] PCP - General Family Medicine 06/10/24 Ariella Mathis DO [address] [place] [address] Referring Physician Neurology 01/02/24 Mae Reese NP [address] [place] [address] Nurse Practitioner Family Medicine 06/10/24 documented as of this encounter
--- OUTSIDE RECORDS SUMMARY | 2025-07-10 00:42 | XMS_ITS | Encounter Summary ---
Author Organization [facility] Address [address] [place] [address] Care Team Providers Care Store Clerk Checker Name Role Phone Ariella Mathis DO Unavailable [phone] Tapan Barboza MD Primary Care Provider [phone] Mae Reese ENVIRONMENTAL CONSERVATION PROFESSOR Unavailable [phone] Encounter Details Date Type Department Care Team (Late st Contact Info) Description 04/29/2025 Abstract [facility] [address] [place] [address] Kaylene López NP [address] [place] [address] Social History Tobacco Use Types Packs/Day Years [...] Recorded Patient Health Questionnaire-2 Score 0 07/11/2024 [facility] of Occupat ional Health - Occupational [...] in a assisted (including now)? No 10/26/2023 Housing Stability Vital Sign Answer Dhruv e Recorded In the last 12 months, was t here a time when you were not able to pay the mortgage or rent on time? No 11/25/2024 In the past 12 months, how m any times have you moved where you were living? 0 11/25/2024 At any time in the past 12 m [facility], were you homeless or living in a assisted (including now)? No 11/25/2024 Comments Unknown Sex [...] [address] [place] [address] Denise Lazo MD [address] [place] [address] 12/15/2026 9:00 AM EST Office Visit [facility] [address] [facility] [place] [place] [address] Yuri Bowers PA [address] [facility] [place] [address] documented as of this encounter Goals [...] documented as of this encounter Care Teams Store Clerk Checker Relationship Specialty Start Date End Date Tapan Barboza MD [address] [place] [address] PCP - General Family Medicine 06/10/24 Ariella Mathis DO [address] [place] [address] Referring Physician Neurology 01/02/24 Mae Reese NP [address] [place] [address] Nurse Practitioner Family Medicine 06/10/24 documented as of this encounter
--- OUTSIDE RECORDS SUMMARY | 2025-07-10 00:42 | XMS_ITS | Clinical Summary ---
Author Organization [facility] Address [address] [place] [address] Care Team Providers Care Alumina Refinery Operator Name Role Phone Kaylene López MD Primary Care Provider [phone] Allergies Active Allergy Reactions Criticality Noted Date [...] with Pulm and she will discuss possibly mcfp prednisone for her severe Asthma/COPD. Patient instructed [...] finished her oral abx prescribed by her market research coordinator. Continues to have bronchospasm, wheezing, chest tightness [...] (03/23/2023): Added automatically from request for surgery [id number] Arthritis of right knee 10/17/2018 Lumbar spondylosis 05/22/2018 Overview (03/23/2023): Added automatically from request for surgery [id number] Disorder of sacrum 01/15/2018 Overview (03/23/2023): Added automatically from request for surgery [id number] Asthma 04/01/2014 Chest pain 04/01/2014 Chronic obstructive [...] 1978 Mammogram 1996 COVID-19 Vaccine ( season) 2025 09/20/2024, 08/26/2023, 08/04/2022, Additional history exists Influenza [...] age to complete this topic Insurance [place]ICAID [place] AETNA MEDICARE ADVANTAGE Care Teams Alumina Refinery Operator Relationship Specialty Start Date End Date Kaylene López MD [address] [place] [address] PCP - General Nurse Practitioner 01/22/25
--- OUTSIDE RECORDS SUMMARY | 2025-07-10 00:42 | XMS_ITS | Clinical Summary ---
Author Organization [facility] Address [id number] [address] [place] [address] Care Team Providers Care Candy Forming Machine Operator Name Role Phone Timoteo Rainey [...] mg by mouth daily with breakfast. Active jdvycuxe-rauv-B A-calcium &mins (THERAGRAN-M) 9 mg iron-400 mcg [...] (03/26/2019): Added automatically from request for surgery [id number] Arthritis of right knee 10/17/2018 Lumbar spondylosis 05/22/2018 Overview (05/22/2018): Added automatically from request for surgery [id number] Disorder of sacrum 01/15/2018 Overview (01/15/2018): Added automatically from request for surgery [id number] Immunizations Immunization Administration Dates Next Due Pneumococcal [...] Vaccine 07/07/2025 Medical Devices Implanted Type Area Out Of Town Collection Clerk Device Identifier Shelf Expiration Date Model / Serial / Lot Cmnt Bn Distil Interactiveisc Plc Rpl [id number] - Sna - [id number] Implanted:Qty: 1 on 10/18/2018 by Jim Herring Jr. DO at [facility] Cement Right: Knee [employer] [id number] / NA / [id number] Cmnt Bn Distil Interactiveisc Plc Rpl [id number] - Sna - [id number] Implanted:Qty: 2 on 10/18/2018 by Jim Her[facility] Jr[facility] DO at [facility] Cement Right: Knee [employer] 02/03/2022 [id number] / NA / [id number] Orthopedic Implant Orthopedic Implant Description:lumbar fusion Orthopedic Implant Orthopedic Implant Description:left hip Cmpt Ptlr 32mm Nxgn Alply Rpl [id number] + [id number] + [id number] - Sna - [id number] Implanted:Qty: 1 on 10/18/2018 by Jim Herring Jr., DO at [facility] Orthopedic Implant Right: Knee [employer] 07/06/20265972 5-32 / NA / [id number] Ins Artc 3-4 E-F 12mm Kn Fx Rpl 135360 - Sna - [id number] Implanted:Qty: 1 on 10/18/2018 by Jim Herring Jr., DO at [facility] Orthopedic Implant Right: Knee [employer] 10/05/20225962 2-12 / NA / [id number] Cmpt Fem E Kn Rt Lpsflx Gndr Rpl [id number] - Sna - [id number] Implanted:Qty: 1 on 10/18/2018 by Jim Herring Jr., DO at [facility] Orthopedic Implant Right: Knee [employer] 11/05/20275764- 5-52 / NA / [id number] Plt Tib [id number] Nxgn Kn Cmnt Rpl [id number] + [id number] - Sna - [id number] Implanted:Qty: 1 on 10/18/2018 by Jim Herring Jr. DO at [facility] Plate Right: Knee [employer] 80 7-02 / NA / [id number] Explanted Type Area Out Of Town Collection Clerk Device Identifier Shelf Expiration Date Model / Serial / Lot Scr Bn Chente 35mm 6.5mm Hip St Rpl [id number] + [id number] + 32 - Sna - [id number] Explanted:Qty: 2 on 10/18/2018 at [facility] Screw Right: Knee [employer] 09/05/20280- 5-35 / NA / [id number] Scr Gd 48mm Qd-Spr Hex Hd Mis - Sna - [id number] Explanted:Qty: 2 on 10/18/2018 by Jim Herring Jr. DO at [facility] Screw Right: Knee [employer] 05/05/20285983- 0-48 / NA / [id number] Insurance MEDICARE MEDICAID [place] Advance Directives * Full Code (Latest Code Status on File) Date Activated Date Inactivated Comments 10/18/2018 1:03 PM 10/19/2018 2:33 PM Care Teams Candy Forming Machine Operator Relationship Specialty Start Date End Date Timoteo Rainey MD PCP - General Family Medicine 12/26/17
--- OUTSIDE RECORDS SUMMARY | 2025-07-10 00:42 | XMS_ITS | Patient Health Record ---
Author Organization [facility] in [place] Address [address] [place] [address] Care Team Providers Care Financial Management Analyst Name Role Phone Brianceleste CLEOKaylene Primary Care Provider Unavail able Bo Mcclain Unavailable [phone] Kwabena Zepeda Unavailable [phone] Allergies No Known Allergies Results Component Value Reference Range Notes CT chest wo con Reviewed date:11/13/2024 02:55:20 PM Interpretation: Performing Lab: Notes/Report: Source Facility: [place] [address] CT Scan Report Signed Patient: DIANA CHAMPION MR#: [id number] : 1955 Acct:[id number] Age/Sex: 69 / F ADM Date: 11/12/24 Loc: MS 231-[address]: Shaikh Lev Velasquez Ordering Physician: Bo Mcclain D.O. Date of Service: 11/13/24 Procedure(s): CT chest wo con Accession Number(s): [id number] cc: AIDA BLANC [place] [address] Patient Name: DIANA CHAMPION MRN: [id number] date: 1955 Sex: F Assigned Patient Location: [place] Current Patient Location: [place] Accession/Order Number: [id number] Exam Date: 11/13/2024 13:54 Report Date: 11/13/2024 [...] Signed By: 11/13/24 1422 DD/ 1419 TD/TT: Attic Blower: [place] [address] CT Scan Report Signed Patient: KRISTEN CHAMPION MR#: [id number] : 1955 Acct:[id number] Age/Sex: 69 / F ADM Date: 11/12/24 Loc: MS 231-[address]: Shaikh Lev Velasquez Ordering Physician: Bo Mcclain D.O. Date of Service: 11/13/24 Procedure(s): CT mine st wo con Accession Number(s): [id number] cc: AIDA BLANC [place] [id number] Patient Name: DIANA CHAMPION MRN: [id number] date: 1955 Sex: F Assigned Patient Location: MS Current Patient Location: [place] Accession/Order Numb er: [id number] Exam Date: 11/13/2024 13:54 Report Date: 11/13/2024 [...] Signed By: 11/13/24 1422 DD/ 1419 TD/TT: Attic Blower: PROF JOSSELINE Ramirez ([facility]) Reviewed date:01/05/2025 12:57:10 PM Interpretation: Performing Lab: Notes/Report: [facility] , Sodium 140 136-145 mmol/L Potassium 4.3 [...] mg/dL Performing Lab: see note ML - [facility] Venous Blood Gas Reviewed date:01/05/2025 12:57:10 PM Interpretation: Performing Lab: Notes/Report: [facility] , pH VBG 7.434 7.330-7.430 PCO2 VBG 45.8 40.0-52.0 mmHg Performing Lab: see note - [facility] XR chest 2V Reviewed date:01/05/2025 12:57:10 PM Interpretation: Performing Lab: Notes/Report: Source Facility: [place] [address] [place] [address] XRay Report Signed Patient: DIANA CHAMPION MR#: [id number] : 1955 Acct:[id number] Age/Sex: 69 / F ADM Date: 01/02/25 Loc: MS 214-[address]: Kandy Zepeda M.D. Ordering Physician: Kandy Zepeda M.D. Date of Service: 01/05/25 Procedure(s): XR chest 2V Accession Number(s): [id number] cc: AIDA BLANC; Kandy Zepeda M.D. [place] [id number] Patient Name: DIANA CHAMPION MRN: [id number] date: 1955 Sex: F Assigned Patient Location: MS Current Patient Location: MS Accession/Order Number: [id number] Exam Date: 01/05/2025 09:39 Report Date: 01/05/2025 [...] Medina Jr., D.O.01/05/2025 9:42 AM Dictation [facility] Electron[facility] authentic[facility] by: [id number] Y Date: 01/05/2025 09:42 Dictated By: Marcos Medina M.D. Signed By: 01/05/25944 DD/ 1 TD/TT: Attic Blower: [place] [address] XRay Report Signed Patient: KRISTEN CHAMPION MR#: [id number] : 1955 Acct:[id number] Age/Sex: 69 / F ADM Date: 01/02/25 Loc: MS 214-[address]: Samuel Zepeda M.D. Ordering Physician: Kandy Zepeda M.D. Date of Service: 01/05/25 Procedure(s): XR mine st 2V Accession Number(s): [id number] cc: AIDA BLANC; Kandy Zepeda M.D. [place] [id number] Patient Name: DIANA CHAMPION MRN: [id number] date: 1955 Sex: F Assigned Patient Location: MS Current Patient Location: [place] Accession/Order Numb er: [id number] Exam Date: 01/05/2025 09:39 Report Date: 01/05/2025 [...] RESOLUTION. Impression dictated by: Marcos Medina Jr., D.OJustice01/05/2025 9:42 AM Dictation Location: [facility] Electronically authenticated by: [id number] Y Date: 01/05/2025 09:42 Dictated By: Marcos Medina M.D. Signed By: 01/05/2545 DD/ 1 TD/TT: Attic Blower: CAROL ANN echo doppler complete Reviewed date:01/06/2025 09:44:14 PM Interpretation: Performing Lab: Notes/Report: Source Facility: [place] [address] Cardiology Report Signed Patient: DIANA CHAMPION MR#: [id number] : 1955 Acct:[id number] Age/Sex: 69 / F ADM Date: 01/02/25 Loc: MS 214-[address]: Kandy Zepeda M.D. Ordering Physician: Kandy Zepeda M.D. Date of Service: 01/06/25 Procedure(s): CA echo doppler complete Accession Number(s): [id number] cc: CRISTIAN BLANC Douglas M.D. Patient Name: DIANA CHAMPION MR#: [id number] : 1955 Exam Date: 01/06/2025 Ordering Doctor: [...] Area (VTI): 2.34 cm2, 2.34 cm2 Deceleration [place]: Pressure Half-Time: Peak Velocity(Antegrade Flow): 1.33 m/s [...] M.D. Signed By: 01/06/251807 DD/ 06 TD/TT: Attic Blower: [place] [address] Cardiology Report Signed Patient: KRISTEN CHAMPION MR#: [id number] : 1955 Acct:[id number] Age/Sex: 69 / F ADM Date: 01/02/25 Loc: MS 214-[address]: Samuel Zepeda M.D. Ordering Physician: Kandy Zepeda M.D. Date of Service: 01/06/25 Procedure(s): CA ech o doppler complete Accession Number(s): [id number] cc: CRISTIAN BLANC Douglas M.D. Patient Name: DIANA CHAMPION MR#: [id number] : 1955 Exam Date: 01/06/2025 Ordering Doctor: [...] Area (VTI): 2.34 cm2, 2.34 cm2 Deceleration [place]: Pressure Half-Time: Peak Velocity(Antegr mary Flow): 1.33 [...] M.D. Signed By: 01/06/251807 DD/ 06 TD/TT: Attic Blower: PROF JOSSELINE Ramirez ([facility]) Reviewed date:01/07/2025 07:51:37 PM Interpretation: Performing Lab: Notes/Report: [facility] , Sodium 139 136-145 mmol/L Potassium 4.3 [...] mg/dL Performing Lab: see note ML - [facility] BNP Reviewed date:01/12/2025 09:41:19 AM Interpretation: Performing Lab: Notes/Report: [facility] , NT Pro B Type Natriuretic Pept 242.0 <=900.0 pg/mL Performing Lab: see note ML - [facility] PROF CHEM 8 (BAS METB) Reviewed date:01/12/2025 09:41:19 AM Interpretation: Performing Lab: Notes/Report: [facility] , Sodium 136 136-145 mmol/L Potassium 4.6 [...] mg/dL Performing Lab: see note ML - [facility] BNP Reviewed date:01/12/2025 09:41:19 AM Interpretation: Performing Lab: Notes/Report: [facility] , NT Pro B Type Natriuretic Pept 548.0 <=900.0 pg/mL Performing Lab: see note ML - [facility] CBC AUTO DIFF Reviewed date:01/12/2025 09:41:19 AM Interpretation: Performing Lab: Notes/Report: [facility] , White Blood Count 11.1 4.0-11.0 10 [...] 9.5 9.5-13.5 fL Performing Lab: see note - [facility] PROF CHEM 8 (BAS METB) Reviewed date:01/12/2025 09:41:19 AM Interpretation: Performing Lab: Notes/Report: [facility] , Sodium 135 136-145 mmol/L Potassium 4.6 [...] mg/dL Performing Lab: see note ML - [facility] Manual Differential Reviewed date:01/12/2025 09:41:19 AM Interpretation: Performing Lab: Notes/Report: [facility] , Segmented Neutrophils % Manual 94.0 43.0-75.0 [...] Anisocytosis 1+ Performing Lab: see note - [facility] BNP Reviewed date:01/13/2025 02:13:13 PM Interpretation: Performing Lab: Notes/Report: [facility] , NT Pro B Type Natriuretic Pept 519.0 <=900.0 pg/mL Performing Lab: see note ML - [facility] LB CBC AUTO DIFF Reviewed date:01/13/2025 02:13:13 PM Interpretation: Performing Lab: Notes/Report: [facility] , White Blood Count 8.1 4.0-11.0 10 [...] Performing Lab: see note ML - [facility] LB PROF CHEM 8 (BAS METB) Reviewed date:01/13/2025 02:13:13 PM Interpretation: Performing Lab: Notes/Report: [facility] , Sodium 139 136-145 mmol/L Potassium 4.8 [...] mg/dL Performing Lab: see note ML - [facility] VANCOMYCIN TROUGH Reviewed date:01/13/2025 02:13:13 PM Interpretation: Performing Lab: Notes/Report: [facility] , Vancomycin Trough 15.0 5.0-20.0 ug/mL Performing Lab: see note - [facility] UA RANDOM W or MICROSCOPIC Reviewed date:01/13/2025 02:13:13 PM Interpretation: Performing Lab: Notes/Report: [facility] , Color Urine LT. YELLOW YELLOW Clarity Urine CLEAR CLEAR Specific [place] Urine 1.010 1.005-1.025 pH Urine 6.0 5.0-9.0 [...] NO Performing Lab: see note ML - [facility] Manual Differential Reviewed date:01/12/2025 09:41:19 AM Interpretation: Performing Lab: Notes/Report: [facility] , Segmented Neutrophils % Manual 90.0 43.0-75.0 [...] 0 3/uL Performing Lab: see note - [facility] CBC AUTO DIFF Reviewed date:01/12/2025 09:41:19 AM Interpretation: Performing Lab: Notes/Report: [facility] , White Blood Count 10.7 4.0-11.0 10 [...] 9.5-13.5 fL Performing Lab: see note - [facility] Manual Differential Reviewed date:01/12/2025 09:41:19 AM Interpretation: Performing Lab: Notes/Report: [facility] , Segmented Neutrophils % Manual 91.0 43.0-75.0 [...] 3/uL Performing Lab: see note ML - [facility] PROF CHEM 8 (BAS METB) Reviewed date:01/12/2025 09:41:19 AM Interpretation: Performing Lab: Notes/Report: [facility] , Sodium 137 136-145 mmol/L Potassium 4.4 [...] mg/dL Performing Lab: see note ML - [facility] CBC AUTO DIFF Reviewed date:01/12/2025 09:41:19 AM Interpretation: Performing Lab: Notes/Report: [facility] , White Blood Count 16.1 4.0-11.0 10 [...] fL Performing Lab: see note ML - [facility] BNP Reviewed date:01/12/2025 09:41:19 AM Interpretation: Performing Lab: Notes/Report: [facility] , NT Pro B Type Natriuretic Pept 266.0 <=900.0 pg/mL Performing Lab: see note ML - [facility] BLOOD GASES BTY Reviewed date:01/12/2025 09:41:19 AM Interpretation: Performing Lab: Notes/Report: [facility] , pH ABG 7.391 7.350-7.450 ABG PCO2 [...] Performing Lab: see note ML - [facility] LB Lower Respiratory Culture Reviewed date:01/14/2025 04:11:49 [...] S F Lower Respiratory Culture Performed at: [facility] Lower Respiratory Culture WILL FOLLOW O:GNR Isolated O:PSMS Isolated Organism: 8.2 Antibiotic Interpretation CUCO Status Cefepime Cefepime S F Ceftazidime Ceftazidime S F Ciprofloxacin Ciprofloxacin S F Levofloxacin Levofloxacin S F Meropenem Meropenem S F Tobramycin Tobramycin S F Piperacillin/Tazobact am Piperacillin/Tazobact am S F Ceftazidime/Avibactam Ceftazidime/Avibactam S F Ceftolozane/Tazobacta m Ceftolozane/Tazobacta m S F Lower Respiratory Culture [address] [place], [place] [id number] Lower Respiratory Culture WILL FOLLOW O:GNR Isolated O:PSMS Isolated Organism: 8.2 Antibiotic Interpretation CUCO Status Cefepime Cefepime S F Ceftazidime Ceftazidime S F Ciprofloxacin Ciprofloxacin S F Levofloxacin Levofloxacin S F Meropenem Meropenem S F Tobramycin Tobramycin S F Piperacillin/Tazobact am Piperacillin/Tazobact am S F Ceftazidime/Avibactam Ceftazidime/Avibactam S F Ceftolozane/Tazobacta m Ceftolozane/Tazobacta m S F Lower Respiratory Culture Product Controller: Raphael Marrero PhD, Phone: [phone] Lower Respiratory Culture WILL FOLLOW O:GNR Isolated [...] LC - [facility] SEE REPORT - Hypoid Gear Tester Id information not found for OBX-specific producer director legend Gram Stain Evaluation Reviewed date:01/14/2025 04:11:49 [...] 4 See Below For Report Result 4 [employer] Performing Lab: see note LC - [facility] LB Result 3 Reviewed date:01/14/2025 04:11:49 PM Interpretation: Performing Lab: Notes/Report: [facility] , Result 3 See Below For Report Result 3 [employer] Performing Lab: see note LC - [facility] LB Result 2 Reviewed date:01/14/2025 04:11:49 PM Interpretation: Performing Lab: Notes/Report: [facility] , Result 2 See Below For Report Result 2 [employer] Performing Lab: see note LC - [facility] [...] 09:12:32 PM Interpretation: Performing Lab: Notes/Report: [facility] , Segmented Neutrophils % Manual 88.0 43.0-75.0 [...] 0.12 Performing Lab: see note ML - [facility] PROF CHEM 8 (BAS METB) Reviewed date:01/09/2025 09:12:32 PM Interpretation: Performing Lab: Notes/Report: [facility] , Sodium 138 136-145 mmol/L Potassium 5.0 [...] mg/dL Performing Lab: see note ML - [facility] CBC AUTO DIFF Reviewed date:01/09/2025 09:12:32 PM Interpretation: Performing Lab: Notes/Report: [facility] , White Blood Count 12.9 4.0-11.0 10 [...] fL Performing Lab: see note ML - [facility] BNP Reviewed date:01/09/2025 09:12:32 PM Interpretation: Performing Lab: Notes/Report: [facility] , NT Pro B Type Natriuretic Pept 123.0 <=900.0 pg/mL Performing Lab: see note ML - [facility] LB SARS-CoV-2 Ag* Reviewed date:01/08/2025 09:36:16 PM Interpretation: Performing Lab: Notes/Report: [facility] , SARS-CoV-2 Ag POSITIVE NEGATIVE CALLED TO JESSICA BENITEZ, RN @ 1926 This test has not been FDA cleared [...] Performing Lab: see note ML - [facility] LB RSV Reviewed date:01/08/2025 09:36:16 PM Interpretation: Performing Lab: Notes/Report: [facility] , Respiratory Syncytial Virus Not Detected NOT DETECTE Performing Lab: see note ML - [facility] LB MAGNESIUM Reviewed date:01/08/2025 09:36:16 PM Interpretation: Performing Lab: Notes/Report: [facility] , Magnesium 2.1 1.8-2.4 mg/dL Performing Lab: see note ML - [facility] LB LACTATE or LACTIC ACID Reviewed date:01/08/2025 09:36:16 PM Interpretation: Performing Lab: Notes/Report: [facility] , Lactate/Lactic Acid 1.5 0.4-2.0 mmol/L Performing Lab: see note ML - [facility] INFLUENZA A AND B AG Reviewed date:01/08/2025 09:36:16 PM Interpretation: Performing Lab: Notes/Report: [facility] , Influenza Virus A Antigen Negative Negative [...] test. Performing Lab: see note ML - [facility] PROF CHEM 8 (BAS METB) Reviewed date:01/06/2025 09:44:14 PM Interpretation: Performing Lab: Notes/Report: [facility] , Sodium 140 136-145 mmol/L Potassium 4.1 [...] mg/dL Performing Lab: see note ML - [facility] BNP Reviewed date:01/06/2025 09:44:14 PM Interpretation: Performing Lab: Notes/Report: Comment use blood from this am or skip [facility] , NT Pro B Type Natriuretic Pept 3735.0 <=900.0 pg/mL RESULTS CALLED TO France Winslwo RN Performing Lab: see note - [facility] Venous Blood Gas Reviewed date:08/13/2024 06:54:33 AM Interpretation: Performing Lab: Notes/Report: [facility] , pH VBG 7.394 7.330-7.430 PCO2 VBG 52.9 40.0-52.0 mmHg Performing Lab: see note - [facility] PROF CHEM 8 (BAS METB) Reviewed date:01/14/2025 09:26:10 AM Interpretation: Performing Lab: Notes/Report: [facility] , Sodium 135 136-145 mmol/L Potassium 4.4 [...] mg/dL Performing Lab: see note ML - [facility] CBC AUTO DIFF Reviewed date:01/14/2025 09:26:10 AM Interpretation: Performing Lab: Notes/Report: [facility] , White Blood Count 9.7 4.0-11.0 10 [...] 3/uL Performing Lab: see note - [facility] BNP Reviewed date:01/14/2025 09:26:10 AM Interpretation: Performing Lab: Notes/Report: [facility] , NT Pro B Type Natriuretic Pept 452.0 <=900.0 pg/mL Performing Lab: see note ML - [facility] Reason For Referral No Information Medications [...] Comme nts Arexvy Unknown 08/18/2023 Administered [employer] Syringe Pre -Filled 30 mcg/0.3 mL Unknown 09/20/2024 Administered Flu, Fluad (10870) 65 yrs + High Dose Seasonal (5100-5836) Unknown 09/06/2024 Administered Flu, Fluzone High-Dose (2022 -2023) (03629) 65 yrs+ Unknown 08/26/2023 Administered Pneumococcal (Pneumovax [...] Problem Status W/U Status Risk Notes Problem 664728647 Morbid (severe) obesity due to excess calories (E66.01) Active confirmed Problem 676332847 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 Problem Chronic respiratory failure (21811399) Chronic respiratory failure with hypoxia (J96.11) Active confirmed Problem Pulmonary collapse (36402535) Other pulmonary collapse (J98.19) Active confirmed Dynamic airway collapse Problem 270066601 FDC (current) use of inhaled steroids (Z79.51) Active confirmed Problem Chronic obstructive pulmonary disease (27078343) Chronic obstructive pulmonary disease (J44.9) Active confirmed Prior treatment: Trelegy 100 > Breo 100 > Spiriva > albuterol > Atrovent Problem Restless legs syndrome (29567616) Restless leg syndrome (G25.81) Active confirmed Problem Depression (096833727) Depression (F32.9) Active confirmed Problem Allergic rhinitis (40985833) Allergic rhinitis (J30.9) Active confirmed Problem Restrictive lung disease (54033411) Restrictive lung disease (J98.4) Active confirmed Problem Multiple pulmonary nodules (203358781) Multiple pulmonary nodules (R91.8) Active confirmed Problem Lung field abnormal (850609971) Ground glass opacity present on imaging of lung (R91.8) Active confirmed Problem Gastroesophageal reflux disease (419090307) Gastroesophageal reflux disease (K21.9) Active confirmed Problem Exacerbation of asthma (613510364) Asthma with acute exacerbation (J45.901) Active confirmed Problem Daytime sleep (062030662) Daytime hypersomnolence (G47.19) Active confirmed Problem Pneumonia (211134539) Healthcare-associ ated pneumonia (J18.9) Active confirmed Problem Secondary pulmonary hypertension (20245134) Other secondary pulmonary hypertension (I27.29) Active confirmed Problem 04371381 Allergic rhinitis, unspecified seasonality, unspecified trigger (J30.9) Active confirmed Problem Lumbar spinal stenosis (62496108) Lumbar stenosis (M48.061) Active confirmed Problem History of COVID-19 (04222702081893407 5) History of COVID-19 (Z86.16) Active confirmed 04/04/2023: Severe associated hypoxic respiratory failure Problem Body mass index 40+ - severely obese (301671989) Body mass index [BMI] 40.0-44.9, adult (Z68.41) Active confirmed Vital Signs Heart Rate 73 /min 05/01/2025 Temperature 97.0 degrees Fahrenheit 05/01/2025 Respiratory Rate 20 /min 05/01/2025 Blood pressure diastolic 75 mm Hg 05/01/2025 Oximetry 95 % 05/01/2025 Height 61 in 05/01/2025 Blood pressure systolic 124 mm Hg 05/01/2025 Weight 236.0 lbs 05/01/2025 BMI 44.59 kg/m2 05/01/2025 Encounters Encounter Location Date Provider Diagnosis Pulmonary Medicine [address] [address] 08/06/2024 Bo Mcclain 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 ; Restrictive lung disease J98.4 ; Chronic obstructive pulmonary disease J44.9 ; Other pulmonary collapse J98.19 ; Chronic respiratory failure with hypoxia J96.11 ; Allergic rhinitis J30.9 ; Daytime hypersomnolence G47.19 ; Restless leg syndrome G25.81 ; intermediate designer (current) use of inhaled steroids Z79.51 ; History of COVID-19 Z86.16 ; Morbid (severe) obesity due to excess calories E66.01 and Body mass index [BMI] 40.0-44.9, adult Z68.[address] [address] 12/10/2024 [facility] Chronic obstructive pulmonary disease with (acute) exacerbation J44.1 and Candidal stomatitis B37.[address] [address] 10/22/2024 [facility] Chronic obstructive pulmonary disease J44.9 ; Other pulmonary collapse J98.19 ; Seborrheic dermatitis, unspecified L21.9 ; 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 ; Chronic respiratory failure with hypoxia J96.11 ; intermediate designer (current) use of inhaled steroids Z79.51 ; History of COVID-19 Z86.16 and Morbid (severe) obesity due to excess calories E66.[address] [address] 04/02/2025 [facility] Chronic obstructive pulmonary disease J44.9 ; Other pulmonary collapse J98.19 ; 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 ; Other secondary pulmonary hypertension I27.29 ; Chronic respiratory failure with hypoxia J96.11 ; intermediate designer (current) use of inhaled steroids Z79.51 ; History of COVID-19 Z86.16 and Morbid (severe) obesity due to excess calories E66.[address] [address] 05/01/2025 [facility] Chronic obstructive pulmonary disease J44.9 ; 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 ; Other pulmonary collapse J98.19 ; Chronic respiratory failure with hypoxia J96.11 ; Other secondary pulmonary hypertension I27.29 ; Allergic rhinitis J30.9 ; Oral candidiasis B37.0 ; FDC (current) use of inhaled steroids Z79.51 ; Morbid (severe) obesity due to excess calories E66.01 and History of COVID-[address] [place] [address] 09/03/2024 [facility] Chronic obstructive pulmonary disease J44.9 ; Healthcare-associated [...] index [BMI] 40.0-44.9, adult Z68.41 [facility] [address] [place] [address] 01/29/2025 [facility] Chronic obstructive pulmonary disease J44.9 ; Other pulmonary collapse J98.19 ; 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 ; Other secondary pulmonary hypertension I27.29 ; Chronic respiratory failure with hypoxia J96.11 ; intermediate designer (current) use of inhaled steroids Z79.51 ; History of COVID-19 Z86.16 and Morbid (severe) obesity due to excess calories E66.01 [facility] [address] [place] [address] 07/23/2024 [facility] [address] [facility] [address] 08/12/2024 [facility] [address] [facility] [address] 09/12/2024 [facility] Pulmonary [facility] [address] [facility] [address] 11/04/2024 [facility] [address] [facility] [address] 11/12/2024 [facility] Chronic obstructive pulmonary disease J44.9 [facility] [address] [facility] [address] 11/28/2024 [facility] Pulmonary [facility] [address] [facility] [address] 12/09/2024 [facility] [address] [facility] [address] 01/08/2025 [facility] [address] [facility] [address] 01/14/2025 [facility] [address] [facility] [place] [address] 01/14/2025 Kwabena Zepeda [facility] [address] [facility] [address] 02/24/2025 [facility] Chronic obstructive pulmonary disease J44.9 [facility] [address] [facility] [address] 06/16/2025 [facility] Assessments Encounter Date Diagnosis (ICD Code) Assessment Notes Treatment Notes Treatment Clinical Notes Section Notes 08/06/2024 Critical illness myopathy (ICD-10 - G72.81) Npbq-nb-jybu encounter performed with the patient to document [...] able to generate an NIF (MIP) of -[id number]. This neuromuscular weakness is not secondary to [...] acute hypercapnic respiratory failure. This is a txbl-wi-khqo visit performed with the patient today to [...] (ICD-10 - J98.19) Dynamic airway collapse Tracheobronchomalacia Cvhh-oi-gngm performed today regarding continued need for NIV. 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 [...] she keep up with her pulmonary toilet. [facility] Pulmonology practice will be permanently closing. Refilling all medications today. As it will be several months until I would be able to see her again elsewhere, prescribing prednisone and antibiotics in case she has a flare and is unable to reach anyone. 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 [...] 01/29/2025 Critical illness myopathy (ICD-10 - G72.81) Sznb-kv-hgnx encounter performed with the patient to document [...] treatment. It was recommended for referral to [facility] for tracheobronchoplasty, but patient wished to have conservative treatment for now. 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) Iiny-et-tfff encounter performed with the patient to document [...] 10/22/2024 Critical illness myopathy (ICD-10 - G72.81) Fksp-xb-peui encounter performed with the patient to document [...] 04/02/2025 Critical illness myopathy (ICD-10 - G72.81) Gzqc-rh-apxm encounter performed with the patient to document [...] respiratory failure with hypoxia (ICD-10 - J96.11) Clxw-tt-qzkx encounter performed with the patient to document [...] respiratory failure with hypoxia (ICD-10 - J96.11) Excr-py-jzqg encounter performed with the patient to document [...] respiratory failure with hypoxia (ICD-10 - J96.11) Lnyw-tz-eozv encounter performed with the patient to document [...] respiratory failure with hypoxia (ICD-10 - J96.11) Nago-pk-fnav encounter performed with the patient to document [...] respiratory failure with hypoxia (ICD-10 - J96.11) Jysu-fi-lbha encounter performed with the patient to document [...] time on 3L/min. Continue O2 ATC. 10/22/2024 intermediate designer (current) use of inhaled steroids (ICD-10 - Z79.51) Patient was counseled to rinse & gargle with water after inhaled corticosteroid use. 01/29/2025 [facility]DC (current) use of inhaled steroids (ICD-10 - Z79.51) Patient was counseled to rinse & gargle with water after inhaled corticosteroid use. 04/02/2025 Chronic respiratory failure with hypoxia (ICD-10 - J96.11) Uhjq-od-kgqx encounter performed with the patient to document [...] clotrimazole sent in just in case 04/02/2025 [facility]DC (current) use of inhaled steroids (ICD-10 [...] 04/04/2023: Severe associated hypoxic respiratory failure 05/01/2025 [facility]DC (current) use of inhaled steroids (ICD-10 [...] loss indicated: Decrease calories, increase activity. 09/03/2024 [facility]DC (current) use of inhaled steroids (ICD-10 [...] End Date [facility] [address] [place] [address] [id number] Diana Champion Self - patient is the insured 5 5 [employer] MED[employer]ARE [address] [place], [place] [id number] Diana Champion Self - patient is the insured 5 MEDICAID [place] 2ND INS [address] OFF[place] OF [place], [place] [id number] Diana Champion Self - patient is the [...] Exacerbation-TBH 06/07/2024 COPD Exacerbation-TBH 04/11/2024 Pneumonia-TBH 02/03/2024 Ydmcj-24-LPO 04/10/2023 Hospital Acquired Pneumonia-TBH 08/08/20 Sepsis/Pneumonia-TBH 11/25/2023
--- OUTSIDE RECORDS SUMMARY | 2025-07-10 00:42 | XMS_ITS | Encounter Summary ---
Author Organization [facility] Address [address] [place] [address] Care Team Providers Care Retinal Angiographer Name Role Phone Shaikh BONNY Ohara Primary Care Provider [phone] [facility] RRT Unavailable [phone] Kaylene López MD Primary Care Provider [phone] Encounter Details Date Type Department Care Team (Late st Contact Info) Description 06/28/[address] [facility] [address] [place] [address] Farrah Denny MA Social History [...] on filedocumented in this encounter Care Teams Retinal Angiographer Relationship Specialty Start Date End Date Shaikh Ohara MD PCP - General Family Medicine 03/22/23 01/21/25 Kaylene López MD [address] [place] [address] PCP - General Nurse Practitioner 01/22/25 Shay-Mag Peralta RRT [facility] Respiratory Therapy/Pulmonary Disease Department [address] [place] [address] Respiratory Navigator Respiratory Therapy 08/07/2411/13/24 documented as of this encounter
--- OUTSIDE RECORDS SUMMARY | 2025-07-10 00:42 | XMS_ITS | Encounter Summary ---
Author Organization [facility] Address [address] [place] [address] Care Team Providers Care Amplifier Mechanic Name Role Phone Shaikh BONNY Ohara Primary Care Provider [phone] Ariella Mathis DO Unavailable [phone] Tapan Barboza MD Primary Care Provider [phone] Mae Reese CHRISTIAN MINISTRIES PROFESSOR Unavailable [phone] Encounter Details Date Type Department Care Team (Late st Contact Info) Description 02/13/2024 Clinisync Result Encounter [facility] External Department Unsolicited Shaikh Ohara MD [address] [place] [id number] Social History Tobacco Use Types Packs/Day Years [...] week 10/26/2023 How often do you attend [facility] or church services? More than 4 times per year 10/26/2023 Do you belong to any clubs o r organizations such as restorationism groups, unions, fraternal or athletic groups, or [...] Recorded Patient Health Questionnaire-2 Score 0 01/25/2024 [facility] [place] of Occupat ional Health - Occupational Stress [...] place to sleep or slept in a fdc (including now)? No 10/26/2023 Comments Unknown Sex [...] Dermatology [address] [place] [address] Denise Lazo MD [address] [place] [address] 12/15/2026 9:00 AM EST Office Visit [facility] [address] [place] [address] Yuri Bowers PA [address] [place] [address] documented as of this encounter Procedures Procedure Name Priority Date/Time Associated Diagnosis Comments MR LUMBAR SPINE WO CON 02/13/2024 2:06 PM EDT documented in this encounter Results * MR LUMBAR SPINE WO CON (02/13/2024 2:06 PM EDT) Anatomical Region Laterality Modality Other 02/13/2024 2:06 PM EDT Narrative 02/13/2024 2:08 PM EDT [facility] [place] [id number] Magnetic Resonance Report Signed Patient: DIANA CHAMPION MR#: [id number] : 1955 Acct:[id number] Age/Sex: 68 / F ADM Date: 02/13/24 Loc: MRI Attending Dr: Shaikh Lev Velasquez Ordering Physician: Shaikh Eva Ohara Date of Service: 02/13/24 Procedure(s): MR lumbar spine wo con Accession Number(s): [id number] cc: Shaikh Eva Ohara The [address] [address] Patient Name: DIANA CHAMPION MRN: [id number] date: 1955 Sex: F Assigned Patient Location: MRI Current Patient Location: MRI Accession/Order Number: [id number] Exam Date: 02/13/2024 10:45 Report Date: 02/13/2024 [...] Signed By: 02/13/24 1408 DD/ 1406 TD/TT: Disk Grinder: Procedure Note Radiology, Radiologist, MD - 02/13/2024 [place] [address] Magnetic Resonance Report Signed Patient: DIANA CHAMPION [facility]#: [id number] : 6Acct:[id number] Age/Sex: 68 / FADM Date: 02/13/24 Loc: MRI Attending Dr: Shaikh Lev Velasquez Ordering Physician: Shaikh Eva Ohara Date of Service: 02/13/24 Procedure(s): MR lumbar spine wo con Accession Number(s): [id number] cc: Shaikh Eva Ohara [place] [address] Patient Name: DIANA CHAMPION MRN: [id number] date: 1955 Sex: F Assigned Patient Location: MRI Current Patient Location: MRI Accession/Order Number: [id number] Exam Date: 02/13/2024 10:45 Report Date: 02/13/2024 [...] M.D. Signed By:02/13/24 1408 DD/ 1406 TD/TT: Disk Grinder: us Shaikh Lev DRAPER [facility] Final Result documented in this encounter Visit Diagnoses Not on filedocumented in this encounter Additional Health Concerns Assessment Noted Time PHQ-9 Depression Total Score: 7 11/02/20 23 3:03 PM EST documented as of this encounter Care Teams Amplifier Mechanic Relationship Specialty Start Date End Date Shaikh Ohara MD [address] [place] [address] PCP - General Internal Medicine 12/28/23 06/09/24 Tapan Barboza MD [address] [place] [address] PCP - General Family Medicine 06/10/24 Ariella Mathis DO [address] [place] [address] Referring Physician Neurology 01/02/24 Mae Reese NP [address] [place] [address] Nurse Practitioner Family Medicine 06/10/24 documented as of this encounter
--- OUTSIDE RECORDS SUMMARY | 2025-07-10 00:42 | XMS_ITS | Encounter Summary ---
Author Organization [facility] Address [address] [facility] [place] [address] Care Team Providers Care Fitness Worker Name Role Phone Shaikh BONNY Ohara Primary Care Provider [phone] Ariella Mathis DO Unavailable [phone] Tapan Barboza MD Primary Care Provider [phone] Mae Reese TURNAROUND PLANNER Unavailable [phone] Encounter Details Date Type Department Care Team [...] How often do you attend chur or baptist services? More than 4 times [...] Recorded Patient Health Questionnaire-2 Score 0 04/17/2024 [facility] of Occupat ional Health - Occupational [...] Office Visit [facility] [address] [facility] [address] [place] [address] Denise Lazo MD [address] [facility] [address] [place] [address] 12/15/2026 9:00 AM EST Office Visit [facility] [address] [place] [address] Yuri Bowers PA [address] [place] [address] documented as of this encounter Procedures Procedure Name Priority Date/Time Associated Diagnosis Comments CA ECHO DOPPLER COMPLETE 05/29/2024 3:49 PM EDT documented in this encounter Results * CA ECHO DOPPLER COMPLETE (05/29/2024 3:49 PM EDT) Anatomical Region Laterality Modality Other 05/29/2024 3:49 PM EDT Narrative 05/29/2024 3:50 [place] [address] Cardiology Report Signed Patient: DIANA CHAMPION MR#: [id number] : 1955 Acct:[id number] Age/Sex: 68 / F ADM Date: 05/28/24 Loc: CARD Attending Dr: Nasim Scales M.D. Ordering Physician: Nasim Scales M.D. Date of Service: 05/28/24 Procedure(s): CA echo doppler complete Accession Number(s): [id number] cc: Nasim Scaels M.D.; Shaikh Eva Ohara Patient Name: DIANA CHAMPION MR#: [id number] : 1955 Exam Date: 05/28/2024 Ordering Doctor: [...] Signed By: 05/29/24 1550 DD/ 1549 TD/TT: Printing Roller Handler: Procedure Note Radiology, Radiologist, MD - 05/29/2024 [place] [address] Cardiology Report Signed Patient: DIANA CHAMPION AMR#: [id number] : 1955cct:[id number] Age/Sex: 68 / FADM Date: 05/28/24 Loc: CARD Attending Dr: Nasim Scales M.D. Ordering Physician: Nasim Scales M.D. Date of Service: 05/28/24 Procedure(s): CA echo doppler complete Accession Number(s): [id number] cc: Nasim Scales M.D.; Shaikh Eva Ohara Patient Name: DIANA CHAMPION MR#: [id number] : 1955 Exam Date: 05/28/2024 Ordering Doctor: [...] LIMON Signed By:05/29/24 1550 DD/ 1549 TD/TT: Printing Roller Handler: Generic External Data Provider [facility] Final Result documented in this encounter Visit Diagnoses Not on filedocumented in this encounter Additional Health Concerns Assessment Noted Time PHQ-9 Depression Total Score: 7 11/02/20 23 3:03 PM EST documented as of this encounter Care Teams Fitness Worker Relationship Specialty Start Date End Date Shaikh Ohara MD [address] [place] [address] PCP - General Internal Medicine 12/28/23 06/09/24 Tapan Barboza MD [address] [place] [address] PCP - General Family Medicine 06/10/24 Ariella Mathis DO [address] [place] [address] Referring Physician Neurology 01/02/24 Mae Reese NP [address] [place] [address] Nurse Practitioner Family Medicine 06/10/24 documented as of this encounter
--- OUTSIDE RECORDS SUMMARY | 2025-07-10 00:42 | XMS_ITS | Encounter Summary ---
Author Organization [facility] Address [address] [place] [address] Care Team Providers Care Religious Assistant Name Role Phone Shaikh BONNY Ohara Primary Care Provider [phone] Ariella Mathis DO Unavailable [phone] Tapan Barboza MD Primary Care Provider Mae Reese CAR SCRUBBER Unavailable [phone] Encounter Details Date Type Department Care Team (Late st Contact Info) Description 04/12/2024 Orders Only [facility] [address] [place] [address] Shaikh Ohara MD [address] [place] [place] [address] Social History Tobacco Use Types Packs/Day Years [...] How often do you attend chur or restoration services? More than 4 times per year [...] Recorded Patient Health Questionnaire-2 Score 0 04/11/2024 [facility] [place] of Occupat ional Health - Occupational Stress [...] Visit [facility] [address] [place] [address] Denise Lazo MD [address] [place] [address] 12/15/2026 9:00 AM EST Office Visit [facility] [address] [place] [address] Yuri Bowers PA [address] [facility] [place] [address] documented as of this encounter Procedures Procedure [...] documented as of this encounter Care Teams Religious Assistant Relationship Specialty Start Date End Date Shaikh Ohara MD [address] [place] [address] PCP - General Internal Medicine 12/28/23 06/09/24 Tapan Barboza MD [address] [place] [address] PCP - General Family Medicine 06/10/24 Ariella Mathis DO [address] [place] [address] Referring Physician Neurology 01/02/24 Mae Reese NP [address] [place] [address] Nurse Practitioner Family Medicine 06/10/24 documented as of this encounter
--- OUTSIDE RECORDS SUMMARY | 2025-07-10 00:43 | XMS_ITS | Encounter Summary ---
Author Organization [facility] Address [address] [facility] [place] [address] Care Team Providers Care Metal Mixer Name Role Phone Shaikh BONNY Ohara Primary Care Provider [phone] Ariella Mathis DO Unavailable [phone] Tapan Barboza MD Primary Care Provider [phone] Mae Reese ABSTRACT MANAGER Unavailable [phone] Encounter Details Date Type Department Care Team [...] How often do you attend chur or buddhism services? More than 4 times [...] Recorded Patient Health Questionnaire-2 Score 0 03/27/2024 [facility] of Occupat ional Health - Occupational Stress [...] Dermatology [address] [place] [address] Denise Lazo MD [address] [place] [address] 12/15/2026 9:00 AM EST Office Visit [facility] [address] [place] [address] Yuri Bowers PA [address] [place] [address] documented as of this encounter Procedures Procedure Name Priority Date/Time Associated Diagnosis Comments XR THORACIC SPINE 3V 03/27/2024 7:50 AM EDT documented in this encounter Results * XR THORACIC SPINE 3V (03/27/2024 7:50 AM EDT) Anatomical Region Laterality Modality Other 03/27/2024 7:50 AM EDT Narrative 03/27/2024 7:53 [place] [address] XRay Report Signed Patient: DIANA CHAMPION MR#: [id number] : 1955 Acct:[id number] Age/Sex: 68 / F ADM Date: 03/26/24 Loc: [facility] Attending Dr: Jose Mahajan NP Ordering Physician: Jose Mahajan NP Date of Service: 03/26/24 Procedure(s): XR thoracic spine 3V Accession Number(s): [id number] cc: Shaikh Eva Ohara; Jose Mahajan NP [address] [address] Patient Name: DIANA CHAMPION MRN: [id number] date: 1955 Sex: F Assigned Patient Location: [facility] Current Patient Location: Accession/Order Number: [id number] Exam Date: 03/26/2024 15:13 Report Date: 03/27/2024 [...] Vanessa M.D. Signed By: 03/27/24 0753 DD/ 075 TD/TT: Data Warehousing Manager: Procedure Note Radiology, Radiologist, MD - 03/27/2024 [place] [address] XRay Report Signed Patient: DIANA CHAMPION AMR#: [id number] : 1955cct:[id number] Age/Sex: 68 / FADM Date: 03/26/24 Loc: RAD Attending Dr: Jose Mahajan NP Ordering Physician: Jose Mahajan NP Date of Service: 03/26/24 Procedure(s): XR thoracic spine 3V Accession Number(s): [id number] cc: Shaikh Eva Ohara; Jose Mahajan NP [facility] [place] [id number] Patient Name: DIANA CHAMPION MRN: [id number] date: 1955 Sex: F Assigned Patient Location: [facility] Current Patient Location: Accession/Order Number: [id number] Exam Date: 03/26/2024 15:13 Report Date: 03/27/2024 [...] M.D. Signed By:03/27/24 0753 DD/ 0750 TD/TT: Data Warehousing Manager: us Generic External Data Provider [facility] Final Result documented in this encounter Visit Diagnoses Not on filedocumented in this encounter Additional Health Concerns Assessment Noted Time PHQ-9 Depression Total Score: 7 11/02/20 23 3:03 PM EST documented as of this encounter Care Teams Metal Mixer Relationship Specialty Start Date End Date Shaikh Ohara MD [address] [place] [address] PCP - General Internal Medicine 12/28/23 06/09/24 Tapan Barboza MD [address] [place] [address] PCP - General Family Medicine 06/10/24 Ariella Mathis DO [address] [place] [address] Referring Physician Neurology 01/02/24 Mae Reese NP [address] [place] [address] Nurse Practitioner Family Medicine 06/10/24 documented as of this encounter
--- OUTSIDE RECORDS SUMMARY | 2025-07-10 00:43 | XMS_ITS | Encounter Summary ---
Author Organization [facility] Address [address] [place] [address] Care Team Providers Care Pit Worker Power Shovel Name Role Phone Shaikh BONNY Ohara Primary Care Provider [phone] Ariella Mathis DO Unavailable [phone] Tapan Barboza MD Primary Care Provider Mae Reese SPEECH THERAPIST EARLY INTERVENTION Unavailable [phone] Encounter Details Date Type Department Care Team (Late st Contact Info) Description 03/27/2024 Clinisync Result Encounter [facility] External Department Unsolicited Shaikh Ohara MD [address] [place] [address] Social History Tobacco Use Types Packs/Day Years [...] attend [facility] or mandaen services? More than 4 [...] Recorded Patient Health Questionnaire-2 Score 0 03/27/2024 [facility] [place] of Occupat ional Health - Occupational Stress [...] in a residential (including now)? No 10/26/2023 Comments Unknown Sex [...] Dermatology [address] [place] [address] Denise Lazo MD [address] [place] [address] 12/15/2026 9:00 AM EST Office Visit [facility] [address] [place] [address] Yuri Bowers PA [address] [place] [address] documented as of this encounter Procedures Procedure Name Priority Date/Time Associated Diagnosis Comments XR CHEST 2V 03/27/2024 4:02 PM EDT documented in this encounter Results * XR CHEST 2V (03/27/2024 4:02 PM EDT) Anatomical Region Laterality Modality Other 03/27/2024 4:02 PM EDT Narrative 03/27/2024 4:05 PM EDT [address] [address] XRay Report Signed Patient: DIANA CHAMPION MR#: [id number] : 1955 Acct:[id number] Age/Sex: 68 / F ADM Date: 03/27/24 Loc: RAD Attending Dr: Shaikh Lev Velasquez Ordering Physician: Shaikh Eva Ohara Date of Service: 03/27/24 Procedure(s): XR chest 2V Accession Number(s): [id number] cc: Shaikh Eva Ohara [address] [address] Patient Name: DIANA CHAMPION MRN: [id number] date: 1955 Sex: F Assigned Patient Location: RAD Current Patient Location: RAD Accession/Order Number: [id number] Exam Date: 03/27/2024 14:40 Report Date: 03/27/2024 [...] recommended to document resolution Electronically authenticated by: BRITATNY VANESSA Date: 03/27/2024 16:02 Dictated By: Brittany Vanessa M.D. Signed By: 03/27/24 1605 DD/ 160 TD/TT: Acupressurist: Procedure Note Radiology, Radiologist, MD - 03/27/2024 [place] [address] XRay Report Signed Patient: DIANA CHAMPION AMR#: [id number] : 1955cct:[id number] Age/Sex: 68 / FADM Date: 03/27/24 Loc: RAD Attending Dr: Shaikh Lev Velasquez Ordering Physician: Shaikh Eva Ohara Date of Service: 03/27/24 Procedure(s): XR chest 2V Accession Number(s): [id number] cc: Shaikh Eva Ohara The [address] [address] Patient Name: DIANA CHAMPION MRN: [id number] date: 1955 Sex: F Assigned Patient Location: RAD Current Patient Location: RAD Accession/Order Number: [id number] Exam Date: 03/27/2024 14:40 Report Date: 03/27/2024 [...] M.D. Signed By:03/27/24 1605 DD/ 1602 TD/TT: Acupressurist: Shaikh Lev DRAPER [facility] Final Result documented in this encounter Visit Diagnoses Not on filedocumented in this encounter Additional Health Concerns Assessment Noted Time PHQ-9 Depression Total Score: 7 11/02/20 23 3:03 PM EST documented as of this encounter Care Teams Pit Worker Power Shovel Relationship Specialty Start Date End Date Shaikh Ohara MD [address] [place] [address] PCP - General Internal Medicine 12/28/23 06/09/24 Tapan Barboza MD [address] [place] [address] PCP - General Family Medicine 06/10/24 Ariella Mathis DO [address] [place] [address] Referring Physician Neurology 01/02/24 Mae Reese NP [address] [place] [address] Nurse Practitioner Family Medicine 06/10/24 documented as of this encounter
--- NOTE | 2025-07-11 10:54 | CM.DCFOLLOWU ---
Person spoke with:patient How are you feeling? feeling good How is your pain?none Did you understand your discharge instructions?yes Do you have any questions about your discharge instructions?no Were you given any prescriptions at discharge?yes Were you able to get your prescriptions filled?yes Do you understand how to take your medications as ordered?yes Do you have any questions about your follow up appointment and do you plan to keep your follow up appointment? no questions, follow up reviewed. Reminded pt to ask Kaylene at follow up about referral to [facility]. Is there anything else that you would like to discuss?no Questions/Comments/Concerns/Other:none
== END 2025-07-09 10:38 | disposition home or self-care (01) | DRG 193 ==
LOC: ER 17:34 → MS 21:56
PROVIDERS: Physician Assistant; Admitting Provider Internal Medicine; Emergency Provider Emergency Medicine; PCP Nurse Practitioner; Visit Provider Internal Medicine
DX: J18.9 Pneumonia, unspecified organism (principal); J96.21 Acute and chronic respiratory failure with hypoxia; J96.22 Acute and chronic respiratory failure with hypercapnia; J44.1 Chronic obstructive pulmonary disease with (acute) exacerbation; I50.32 Chronic diastolic (congestive) heart failure; J44.0 Chronic obstructive pulmonary disease with (acute) lower respiratory infection; Z68.41 Body mass index [BMI] 40.0-44.9, adult; E83.42 Hypomagnesemia; E87.6 Hypokalemia; Z99.81 Dependence on supplemental oxygen; E11.9 Type 2 diabetes mellitus without complications; Z87.01 Personal history of pneumonia (recurrent); I25.10 Atherosclerotic heart disease of native coronary artery without angina pectoris; M96.1 Postlaminectomy syndrome, not elsewhere classified; M47.814 Spondylosis without myelopathy or radiculopathy, thoracic region; M48.062 Spinal stenosis, lumbar region with neurogenic claudication; F32.A Depression, unspecified; M47.26 Other spondylosis with radiculopathy, lumbar region; Z98.51 Tubal ligation status; Z98.1 Arthrodesis status; Z79.899 Other long term (current) drug therapy; E66.01 Morbid (severe) obesity due to excess calories; D64.9 Anemia, unspecified; J98.09 Other diseases of bronchus, not elsewhere classified; I27.20 Pulmonary hypertension, unspecified; J20.9 Acute bronchitis, unspecified; F32.9 Major depressive disorder, single episode, unspecified; F41.9 Anxiety disorder, unspecified; R79.89 Other specified abnormal findings of blood chemistry
CPT/HCPCS: 36415; 71046; 71275; 80048; 80053; 83605; 83735; 83880; 84100; 84484; 85025; 85027; 85378; 85610; 87040; 87420; 87804; 87811; 93005; 94640; 94761; 96365; 96366; 96367; 96368; 99285; J0456; J0696; J1650; J2919; J3475; J3480; J7512; Q9967

== ENCOUNTER 2025-07-18 16:27 | Outpatient (OUT) | payer MEDICARE, MEDICAID, SELFPAY ==
--- OUTSIDE RECORDS SUMMARY | 2025-07-18 16:38 | XMS_ITS | CCD ---
Author Organization [facility] Care Team Providers Care Rig Welder Name Role Phone Steph Collier Attending Provider Unavailable Chantel Rainey Primary Care Provider Unavailabl e Joana, Herberth Attending Provider Unavailable Unavailable Primary Care Provider Unavailabl e UNKNOWN, PHYSICIAN Referring Unavailable JOO LINN Attending Unavailable JOO LINN Admitting Unavailable UNKNOWN, PHYSICIAN Primary Care Unavailable Rena Hurd Unavailable Joana, Herberth Unavailable Gato Domingo Unavailable Steph Collier Attending Provider MD Gato Domingo Attending Provider [phone] MD Nicky Ohara Primary Care Provider Gilma Trent Unavailable JOANA, HERBERTH Attending Unavailable JOANA, HERBERTH Admitting Unavailable FAWWAD, MESSER H Primary Care Unavailable JOANA, HERBERTH Consulting Unavailable SAMSA ., BO Admitting Unavailable FAWWAD, MESSER H Primary Care Unavailable FAJavonWAD, MESSER H Consulting Unavailable BO MCKINNON Attending Unavailable BRITTANY GALDAMEZ Consulting Unavailable DILSHADASINorman ., DR SANTIAGO Admitting Unavailabl e KARASIK ., DR SANTIAGO Attending Unavailabl e KARASIK ., DR SANTIAGO Consulting Unavailabl e FAWWAD, MESSER H Primary Care Unavailable HARLOWTON, DR BRITTANY Elizondo Consulting Unavailable ZIEBBETH, DR [...] Lacey Attending Provider KELI Reese Primary Care [facility] er TAPAN ZAZUETA Primary Care Physician Allan Lacey MD Attending Provider Aida Correa [facility] Care [facility] er Allan Lacey Attending Unavailable Aida Reese Primary Care Unavaila Allan Fregoso Admitting Unavailable Allan Lacey Attending Unavailable Aida Reese Primary Care Unavaila Allan Fregoso Admitting Unavailable Reese LINUX SUPPORT ENGINEER, Aida Unavailable OMBALLI, MOHAMED Referring Unavailable RADHA, GHULAM Referring Unavailable OMBALLI, MOHAMED Admitting Unavailable OMBALLI, MOHAMED Attending Unavailable OMBALLI, MOHAMED Referring Unavailable ELTAHAWY, EHAB Attending Unavailable ELTAHAWY, EHAB Attending Unavailable OMBALLI, EMELIA Attending Unavailable SAMSABO Referring Unavailable OMBALLI, EMELIA Attending Unavailable JANYIEMELIA Attending Unavailable MAG BLOUNT Attending Unavailable AIDA REESE Referring Unavailabl MAG Layton Attending Unavailable JOSE ALEJANDROMAG MORENO Attending Unavailable MAG BLOUNT Admitting Unavailable AIDA REESE Attending Unavailabl e PETJESSICA PATTERSON Attending Unavailable RAMIN BOWERS Attending Unavailable RAMIN BOWERS Referring Unavailable RAMIN BOWERS Referring Unavailable PETJESSICA PATTERSON Attending Unavailable REESEAIDA AREVALO Attending Unavailabl e REESEAIDA Attending Unavailabl e REESEAIDA Attending Unavailabl e AICHHOLKAYLENE Vega Attending Unavailable AICHHOLZ KAYLENE Attending Unavailable AICHHOLZ KAYLENE Attending Unavailable AICHHOLZ KAYLENE Attending Unavailable AICHHOLZ KAYLENE Attending Unavailable REESEAIDA Attending Unavailabl JAYNA Shaver Attending Unavailable AIDA REESE Referring Unavailabl e REESEAIDA Attending Unavailabl e Alicia DRAPER, Vandanarius Johnson Attending Unavailable Alicia DRAPER, Vandanarius Johnson Attending Unavailable Alicia DRAPER, Vandanarius Johnson Attending Unavailable Amalia Stephens Attending Unavailable Amalia Stephens Attending Unavailable Tapan Zazueta MD Primary Care Provider [phone] ReeseAida ponce NP Unavailable Aida Correa Primary Care Provid er Nicolas Dickinson DO Attending Provider [phone] Kaylene Valero Primary Care Provider [phone] Kaylene Valero Attending Provider Unavailable Unavailable Unavailable Allergies Allergy Classification Reported Allergen(s) Allergy Type Date of Onset Reaction(s) Facility (20 sources) fentaNYL; Translations: [fentanyl] Drug Allergy 07-07-20 17 Hallucinations (finding) [facility] (1 source) linezolid; Translations: [LINEZOLID] Drug Allergy 03-17-20 [facility] Repository (20 sources) Vancomycin; Translations: [VANCOMYCIN] Drug Allergy 03-17-20 Unknown [facility] Repository (15 sources) DENIES METAL SENSITITIVITY Propensity to adverse reactions 03-14-20 Unknown, Unknown Reaction [facility] Medications Current Medications Medication Drug Class(es) [...] for shortness of breath or wheezing September 05, 2024 12:00am Complies with drug therapy Start: 03-14-2024 take 1 puff(s) by in halation every four hours as needed for wheezing Albuterol Sulfate 90 mcg/actuation HFA aerosol inhaler Active 2 PUFF INHALATION Every 4 hours as needed for shortness of breath or wheezing March 14, 2024 12:00am Complies with drug therapy Start: 07-07-2017 take 1 puff(s) by in [...] for Shortness Of Breath Or Wheezing July 07, 2017 12:00am March 14, 2024 10:40am Start: 07-07-2017 End: 03-14-2024 take 1 puff(s) [...] every 6 (six) hours if needed for wheezing Active take 2 puff(s) by in halation every four hours albuterol HFA 90 mcg/act inhaler Inhale 2 puffs every 4 (four) hours if needed for shortness of breath Active take 1 puff(s) by in halation [...] before bedtime. 90 tablet 2 04/28/2025 Active take 1 tablet by mouth every eig ht hours Baclofen 5 MG 1 tablet as needed Orally Three times a day Active 120 actuat budesonide 0.16 mg/actuat / formoterol fumarate 0.0048 mg/actuat / glycopyrrolate 0.009 mg/actuat metered dose inhaler (18 sources) Corticosteroid, beta2-Adrenergic Agonist Start: 07-17-2025 Nbqyonxiyy-Iyivgwun-Nlqtyqap ol (Breztri Aerosphere) 160-9-4.8 mcg/actuation HFA aerosol inhaler Active 2 INH INHALATION Twice daily July 17, 2025 12:00am Complies with drug therapy Start: 02-24-2025 Breztri Aerosp here 160-9-4.8 MCG/ACT aerosol every 12 (twelve) hours 02/24/2025 Active 24 hr buPROPion hydrochloride 150 mg extended release oral tablet (15 sources) Aminoketone Start: 07-17-2025 take 1 tablet by mouth once daily in the morning Bupropion Hcl (Wellbutrin Xl) 150 mg tablet extended release 24 hr Active 150 MG PO Every morning July 17, 2025 12:00am Complies with drug therapy Start: 04-23-2025 End: 07-18-2025 take 1 tablet by mouth every twenty-four hours in the morning buPROPion XL (Wellbutrin XL) 150 MG 24 hr tablet Indications: Moderate episode of recurrent major depressive disorder (HCC) Take 1 tablet (150 mg) by mouth in the morning. Do not crush, chew, or split. 30 tablet 1 06/18/2025 07/18/2025 Active cholecalciferol 0.025 mg oral capsule (11 sources) Vitamin D Start: 01-25-2024 End: 07-23-2024 take 1 capsule by mouth once daily doxycycline hyclate 100 mg oral capsule (7 sources) Tetracycline-c lass Drug Start: 01-14-2025 End: 01-24-2025 take 1 [...] mg by mouth Daily 06/10/2024 Active Ensifentrine (1 source) Start: 07-17-2025 take 3 mg by inhalation twice daily Ensifentrine (Ohtuvayre) 3 mg/2.5 mL suspension for nebulization Active 3 MG INHALATION Twice daily July 17, 2025 12:00am Complies with drug therapy Ensifentrine (Ohtuvayre) 3 MG/2.5ML suspension (17 sources) Start: 04-02-2025 Ensifentrine (Ohtuvayre) 3 MG/2.5ML [...] Every 48 hours March 14, 2024 12:00am Complies with drug therapy take 1 tablet by bessie th every [...] propionate 0.05 mg/actuat metered dose nasal spray (10 sources) Corticosteroid Start: 05-01-2025 take 2 spray(s) [...] Inhalation, Daily Start Date: 10/15/24 Status: Ordered Ngrpscrsleo-Pcuxsocco-Dtmfub (Trelegy Ellipta) 200-62.5-25 MCG/ACT aerosol powder (20 sources) End: 04-09-2025 take 1 puff(s) by mouth in the morning Jxzaysslzhe-Lnwffzhmy-Xqyqwv (Trelegy Ellipta) 200-62.5-25 MCG/ACT aerosol powder Take 1 puff by mouth in the morning. 04/09/2025 Discontinued (Ineffective) take 1 puff(s) by mo uth in the morning Ahvpyugxzre-Pjzozlljr-Ofrktk (Trelegy El lipta) 200-62.5-25 MCG/ACT aerosol powder Take 1 puff by mouth in the morning. Active furosemide 20 mg oral tablet (20 sources) Loop Diuretic Start: 04-10-2024 End: 08-10-2025 take 1 tablet by mouth once daily Furosemide (Lasix) 20 mg tablet Active 20 MG PO Daily May 29, 2024 7:40am Complies with drug therapy take 1 tablet by bessie th every [...] 1 tablet by mouth every twelve hours as needed, then take 1 tablet by mouth every twelve hours as needed Guaifenesin (Mucinex) 600 mg tablet extended release 12hr Active 600 MG PO Every 12 hours as needed July 17, 2025 12:00am Complies with drug therapy Start: 10-15-2024 take 1 tablet by bessie th every twelve hours guaiFENesin 600 mg ER Tab 600 mg = 1 tab(s), Oral, q12hr Start Date: 10/15/24 Status: Ordered Repeat number: 1 take 1 tablet by bessie th in the morning, then take 1 tablet by mouth every twelve hours at bedtime guaiFENesin (Mucinex) 600 MG 12 hr tablet [...] Daily at bedtime September 05, 2024 12:00am Complies with drug therapy Start: 09-05-2024 take 1 drop(s) into the eye(s) once daily at bedtime Latanoprost 0.005 % drops Active 1 DROPS EYE-BOTH Daily at bedtime September 04, 2024 11:00pm Start: 09-05-2024 take 1 drop(s) into the eye(s) once daily at bedtime Latanoprost Active 1 DROPS EYE-BOTH Daily at bedtime September 05, 2024 12:00am Start: 06-18-2024 latanoprost (X alatan) 0.005 % ophthalmic solution 06/18/2024 Active Start: 06-18-2024 take 1 drop(s) into the [...] Start: 06-10-2024 take 1 tablet by bessie once daily levoFLOXacin (Levaquin) 750 MG tablet Take 750 mg by mouth Daily 06/10/2024 Active montelukast 10 mg oral tablet (20 sources) Leukotriene Receptor Antagonist Start: 03-14-2024 take 1 tablet by mouth once daily Multi For Her 50+ - (11 sources) Multi For Her 50+ - as directed Orally ONCE A DAY [...] tablet (20 sources) take 1 tablet by bessie th once daily Multiple Vitamin (multivitamin) tablet Take 1 tablet by mouth Daily Active take 1 tablet by mouth in the mo rning Multiple Vitamin (multivitamin) tablet Take 1 tablet by mouth in the morning. Active mupirocin 0.02 mg/mg topical ointment (5 sources) RNA Synthetase Inhibitor Antibacterial Start: 05-19-2025 End: 06-15-2025 mupirocin (Bactroban) 2 % ointment Indications: Skin pustule Apply topically 3 (three) times a day as needed (skin pustules) for up to 10 days 22 g 06/05/2025 06/15/2025 Active nystatin 249917 unt/ml topical cream (7 sources) Polyene Antifungal Start: 05-19-2025 End: 06-02-2025 nystatin (Mycostatin) cream Indications: Candidiasis of breast [...] Start: 03-14-2024 take 1 capsule by mo uth twice daily Omeprazole 20 mg capsule,delayed release(DR/EC) Active 20 MG PO Twice daily March 14, 2024 12:00am Complies with drug therapy Start: 07-07-2017 End: 03-14-2024 take 1 tablet by mouth once daily Omeprazole 20 mg Tablet,Delayed Release (Dr/Ec) Discontinued 20 MG PO Daily July 07, 2017 12:00am March 14, 2024 10:41am take 1 capsule by mo uth every twelve hours Omeprazole 20 MG 1 CAPSULE Orally TWICE A DAY Active take 1 capsule by mo uth once daily Omeprazole 20 MG 1 capsule [...] by mouth once daily Paroxetine Hcl (Paxil) 40 mg tablet Active 40 MG PO Daily July 17, 2025 12:00am Complies with drug therapy Start: 03-14-2024 End: 07-17-2025 take 1 tablet by mouth once daily Paroxetine Hcl 30 mg tablet Discontinued 30 MG PO Daily March 14, 2024 12:00am July 17, 2025 6:59am Start: 07-07-2017 End: 03-14-2024 take 1 tablet [...] Repeat number: 1 Start: 03-14-2024 End: 11-15-2025 take 1 tablet by mouth once daily at bedtime take 1 tablet by bessie th every [...] End: 05-29-2025 take 1 capsule by mouth twice daily Pregabalin 75 mg capsule Active 75 MG PO Twice daily March 14, 2024 12:00am Complies with drug therapy Sodium Chloride (20 sources) Start: 10-15-2024 sodium chlorid e Start Date: 10/15/24 Status: Ordered Repeat number: 1 Start: 10-15-2024 sodium chlorid e Start Date: 10/15/24 Status: Ordered Start: 09-05-2024 Sodium Chlorid e 0.9 % solution for nebulization Active ML INHALATION September 05, 2024 12:00am Complies with drug therapy Start: 09-05-2024 Sodium Chlorid e Active ML [...] 90 tablet 07/17/2024 Active Start: 02-19-2024 End: 07-17-2025 take 1 tablet by mouth once daily Solifenacin 10 mg tablet Discontinued 10 MG PO Daily March 14, 2024 12:00am July 17, 2025 7:01am take 1 tablet by bessie th every [...] End: 08-17-2025 take 1 tablet by mouth once daily at bedtime as needed Trazodone 100 mg tablet Active 100 MG PO Daily at bedtime as needed July 17, 2025 12:00am Complies with drug therapy Start: 07-17-2024 take 1 tablet by bessie th at bedtime traZODone (Desyrel) 100 MG tablet Indications: Moderate episode of recurrent major depressive disorder (HCC) (CMS/HCC) Take 1 tablet (100 mg) by mouth at bedtime 30 tablet 2 07/17/2024 Active Start: 03-14-2024 End: 07-17-2025 take 1 tablet by mouth once daily at bedtime Trazodone 100 mg tablet Discontinued 100 MG PO Daily at bedtime March 14, 2024 12:00am July 17, 2025 7:00am Start: 07-07-2017 End: 03-14-2024 take 1 tablet by mouth at bedtime Trazodone 50 mg Tablet Discontinued 50 MG PO Bedtime July 07, 2017 12:00am March 14, 2024 10:38am Comment on above: Take 50 mg by mouth. Trelegy Ellipta 200-62.5-25 MCG/INH (5 sources) take 1 puff(s) by inhalation once daily Trelegy Ellipta 200-62.5-25 MCG/INH 1 puff Inhalation Once a day Active 24 hr trospium chloride 60 mg extended release oral capsule (20 sources) Cholinergic Muscarinic Antagonist Start: take 1 capsule by mouth once daily 1 hour(s) before mealtime Trospium 60 mg capsule,extended release 24hr Active 60 MG PO Daily July 17, 2025 12:00am must be taken on empty stomach at least 1 hour before a meal/food with water only Complies with drug therapy Start: 11-06-2024 End: 10-21-2025 take 1 tablet by mouth twice daily trospium 20 mg oral tablet 20 mg = 1 tab(s), Oral, BID, # 60 tab(s), Refills(s) 11, Pharmacy: [id number], 163, cm, 10/15/24 14:36:00 EST, Height/Length Dosing, 107, kg, 10/15/24 14:36:00 EST, Weight Dosing Start Date: 11/06/24 Stop Date: 10/21/25 Status: Ordered Quantity: 60.0 Unit: tab(s) Repeat number: 12 valACYclovir 1000 mg oral tablet (2 sources) [...] 2024 9:40am amLODIPine 2.5 mg oral tablet (15 sources) Dihydropyridine Calcium Channel Edwin Start: 07-07-2017 [...] by mouth. clonazePAM 0.5 mg oral tablet (7 sources) Benzodiazepine Start: End: take 1 tablet by mouth once daily Clonazepam 0.5 mg Tablet Discontinued 0.5 MG PO Daily July 07, 2017 12:00am March 14, 2024 10:40am Comment on above: Take 0.5 mg by mouth . cyclobenzaprine hydrochloride 10 mg oral tablet (7 sources) Muscle Relaxant Start: End: take 1 tablet by mouth once daily Cyclobenzaprine 10 mg Tablet Discontinued 10 MG PO Daily July 07, 2017 12:00am March 14, 2024 10:40am Comment on above: Take 10 mg by mouth. famotidine 40 mg oral tablet (7 sources) Histamine-2 Receptor Antagonist Start: End: take 1 tablet by mouth at bedtime Famotidine (Pepcid) 40 mg Tablet Discontinued 40 MG PO Bedtime July 07, 2017 12:00am December 08, 2022 8:02am famotidine (PEPC ID) 20 mg tablet Take 20 mg by mouth. 0 Active Comment on above: Take 20 mg by mouth. Fluticasone-Umeclidin- Vilanter (9 sources) Start: 03-14-2024 End: 07-17-2025 Noggbcuezva-Kicoaizvh-Vivr nter (Trelegy Ellipta) 200-62.5-25 mcg blister with device Discontinued 1 INH INHALATION Daily March 14, 2024 12:00am July 17, 2025 6:56am Start: 03-14-2024 Fluticasone-Um eclidin-Vilanter (Trelegy Ellipta) 200-62.5-25 mcg blister with device Active 1 INH INHALATION Daily March 13, 2024 11:00pm Start: 03-14-2024 Fluticasone-Um eclidin-Vilanter (Trelegy Ellipta) 200-62.5-25 mcg blister with device Active 1 INH INHALATION Daily March 14, 2024 12:00am Start: 12-08-2022 End: 03-14-2024 Lmnaenhfqhf-Kaiywzibt-Kwgeiz er (Trelegy Ellipta) 200-62.5-25 mcg blister with device Discontinued 1 INH INHALATION As Directed December 08, 2022 12:00am March 14, 2024 9:40am Start: 12-08-2022 End: 03-14-2024 Yxiuzbqxvwp-Ogxjzdxfd-Jawvqk er (Trelegy Ellipta) 200-62.5-25 mcg blister with device Discontinued 1 INH INHALATION As Directed December 08, 2022 1:00am March 14, 2024 10:40am Start: 12-08-2022 Fluticasone-Um eclidin-Vilanter (Trelegy Ellipta) 200-62.5-25 mcg blister with device Active 1 INH INHALATION As Directed December 08, 2022 12:00am hydroCHLOROthiazide 25 mg oral tablet (13 sources) Thiazide Diuretic Start: 12-08-2022 End: 03-14-2024 take 1 tablet by mouth once daily Hydrochlorothiazide 25 mg tablet Discontinued 25 MG PO Daily December 08, 2022 1:00am March 14, 2024 10:40am hydroCHLOROthiazide 25 mg / spironolactone 25 mg oral tablet (7 sources) Thiazide Diuretic, Aldosterone Antagonist Start: 01-03-2019 take 1 tablet by mouth once spironolactone-hctz 25/25 (ALDACTAZIDE) 25-25 mg per tablet Take 25 mg by mouth. 0 01/03/2019 Active Start: 09-15-2017 End: 12-08-2022 Spironolacton-Hydrochlorothi az 0 tablet Discontinued 1 TAB PO Daily September 15, 2017 1:00am December 08, 2022 8:04am Comment on above: Take 25 mg by mouth. 200 actuat ipratropium bromide 0.017 mg/actuat metered dose inhaler (10 sources) Anticholinergic Start: 07-07-20 End: 03-14-20 take 1 puff(s) by inhalation twice daily Ipratropium [place] (Atrovent Hfa) 17 mcg/actuation Hfa Aerosol Inhaler Discontinued 2 PUFF INHALATION Twice daily July 07, 2017 12:00am March 14, 2024 10:40am take 2 puff(s) by in halation four times daily Atrovent HFA 17 MCG/ACT 2 puffs Inhalation Four times a day Active lisinopril 40 mg oral tablet (6 sources) Angiotensin Converting Enzyme Inhibitor Start: 07-07-2017 End: 12-08-2022 take 0.5 tablet by mouth twice daily Lisinopril 40 mg Tablet Discontinued 0.5 TAB PO Twice daily July 07, 2017 12:00am December 08, 2022 8:04am loratadine 10 mg oral tablet (6 sources) Start: 07-07-2017 End: 03-14-2024 take 1 tablet by mouth once daily Loratadine 10 mg Tablet Discontinued 10 MG PO Daily July 07, 2017 12:00am March 14, 2024 10:41am losartan potassium 50 mg oral tablet (12 sources) Angiotensin 2 Receptor Edwin Start: 04-10-2024 End: 09-05-2024 take 1 tablet by mouth twice daily Losartan 50 mg tablet Discontinued 50 MG PO Twice daily 180 April 10, 2024 4:50pm September 05, 2024 1:09pm Start: 04-10-2024 End: 04-10-2024 take 1 tablet by mouth once daily Losartan 50 mg tablet Discontinued 50 MG PO Daily 90 April 10, 2024 12:00am April 10, 2024 4:49pm take 1 tablet by bessie th in the morning, then take 1 tablet by mouth twice daily in the evening Losartan Potassium 50 MG 1 tablet AM / 1 tablet PM Orally bid for 90 days Active Magnesium (5 sources) Start: 12-08-2022 End: 03-14-2024 take 1 tablet by mouth once daily Magnesium 200 mg Tablet Discontinued 200 MG PO Daily December 08, 2022 1:00am March 14, 2024 10:34am Start: 12-08-2022 End: 03-14-2024 take 1 tablet [...] 12:00am magnesium oxide 400 mg oral tablet (20 sources) Start: 08-09-2022 End: 04-15-2024 take 1 tablet by mouth once daily Magnesium Oxide 400 mg magnesium tablet Discontinued 400 MG PO Daily March 14, 2024 12:00am April 09, 2024 7:18am methylPREDNISolone (18 sources) Corticosteroid Start: 07-18-2018 Depo-Medrol 40 mg Jul, 1 mL Start: 01-31-2018 Depo-Medrol 40 mg Jan, 1 mL potassium 99 mg extended release oral tablet (5 sources) Start: 12-08-2022 End: 03-14-2024 take 1 [...] 03-14-2024 Chronic Comment on above: O2@3L continuous Chronic obstructive pulmonary disease and bronchiectasis (1 source) Chronic obstructive pulmonary disease and bronchiectasis Complication of device; implant or graft (11 [...] 5 10-04-2023 Chronic Fluid and electrolyte disorders (12 sources) Hypokalemia; Translations: [Hypokalemia] Onset: 2 Resolved: [...] 12-05-2023 Chronic Other non-epithelial cancer of skin (6 sources) Squamous cell carcinoma of skin of [...] Chronic Other nutritional; endocrine; and metabolic disorders (12 sources) Hypomagnesemia; Translations: [Hypomagnesemia] 03-14-2024 Chronic Other [...] Chronic Other nutritional; endocrine; and metabolic disorders (2 sources) Morbid obesity; Translations: [Morbid (severe) obesity due to excess calories] 07-17-2025 Chronic Other nutritional; endocrine; and metabolic disorders (5 sources) Hyperuricemia without signs of inflammatory arthritis and tophaceous disease; Translations: [HU W/O SIGNS IA AND TOPHACEOUS DZ] Onset: 2 Resolved: 2 Episodic Other nutritional; endocrine; and metabolic disorders (20 sources) Hyperuricemia; Translations: [Hyperuricemia without signs of inflammatory arthritis and tophaceous disease] Onset: 4 12-05-2023 Episodic Other skin disorders (4 sources) Seborrheic keratosis; Translations: [Other seborrheic keratosis] 12-18-2024 Episodic Other skin disorders (4 sources) Lentiginosis; Translations: [Other melanin hyperpigmentation] 12-17-2024 Episodic Other upper respiratory infections (20 sources) Chronic sinusitis; Translations: [Chronic sinusitis, unspecified] Onset: 4 12-05-2023 Chronic Pulmonary heart disease (20 sources) Secondary pulmonary hypertension; Translations: [Other secondary pulmonary hypertension] Onset: 3 12-05-2023 Chronic Residual codes; unclassified (20 sources) Postmenopausal state; Translations: [Asymptomatic menopausal state] Onset: 3 10-04-2023 Episodic Residual codes; unclassified (20 sources) Bilateral lower limb edema; Translations: [Localized edema] Onset: 5 02-17-2025 Episodic Respiratory failure; insufficiency; arrest (adult) (20 sources) Chronic hypoxemic respiratory failure; Translations: [Chronic respiratory failure with hypoxia] Onset: 4 12-28-2023 Chronic Rheumatoid arthritis and related disease (20 sources) Rheumatoid arthritis; Translations: [Rheumatoid arthritis, unspecified] Onset: 5 02-17-2025 Chronic Skin and subcutaneous tissue infections (11 sources) Pustule ; Translations: [Local infection of the skin and subcutaneous tissue, unspecified] Onset: 5 05-19-2025 Episodic Spondylosis; intervertebral disc disorders; other back problems (20 sources) Sacroiliitis, not elsewhere classified; Translations: [Herniation of nucleus pulposus of lumbar intervertebral disc] Onset: 8 Resolved: 5 12-05-2023 Chronic Spondylosis; intervertebral disc disorders; other back problems (20 sources) Spinal stenosis of lumbar region; Translations: [Spinal stenosis, lumbar region without neurogenic claudication] Onset: 3 Resolved: 5 Episodic Unclassified (4 sources) CONTACT W/AND (SUSP) [...] Onset: 10-04-2023 Resolved: 04-09-2025 10-04-2023 Episodic Other screening for suspected conditions [...] 12-19-2022 Episodic Residual codes; unclassified (20 sources) Viral syndrome; Translations: [Other general symptoms and signs] Onset: 01-02-2025 Resolved: 01-16-2025 01-02-2025 Episodic Screening and history of mental health and substance abuse codes (20 sources) Depression screening positive; Translations: [Encounter for screening for depression] Onset: 10-04-2023 Resolved: 01-16-2025 10-04-2023 Episodic Unclassified (1 source) CONTACT W/AND (SUSP) [...] Test Name Value Interpretation Reference Range Facility Glomerular filtration rate ( GFR) estimation in non- AmericanOrdered By: Nioclas Dickinson on 07-09-2025 GFR/1.73 sq M.predicted among non-blacks MDRD (S/P/Bld) [Vol rate/Area] 56 mL/min/{1.73_m2} Low >=60 mL/min/1.73 m 2 [facility] Laboratory - Chemistry and C hemistry - challengeOrdered By: Nicolas Dickinson on 07-09-2025 Calcium [Mass/Vol] 8.7 mg/dL 8.5-10.1 [facility] Chloride [Moles/Vol] 106 mmol/L 98-107 [facility] CO2 [Moles/Vol] 29.3 mmol/L 21.0-32.0 [facility] Creatinine [Mass/Vol] 0.99 mg/dL 0.55-1.02 [facility] GFR/1.73 sq M.predicted MDRD (S/P/Bld) [Vol rate/Area] mL/min/{1.73_m2} >=60 mL/min/1.73 m 2 [facility] Glucose [Mass/Vol] 206 mg/dL High 74-106 [facility] Magnesium [Mass/Vol] 2.1 mg/dL 1.8-2.4 [facility] Potassium [Moles/Vol] 4.1 mmol/L 3.5-5.1 [facility] Sodium [Moles/Vol] 143 mmol/L 136-145 [facility] Urea nitrogen [Mass/Vol] 19.0 mg/dL High 7.0-18.0 [facility] Urea nitrogen/Creatinine [Mass ratio] 19.2 mg/mg [facility] Serum or plasma anion gap de terminationOrdered By: Nicolas Dickinson on 07-09-2025 Anion gap [Moles/Vol] 11.8 mmol/L [facility] XR Hip - right [address] [place] [address] XRay Report Signed Patient: DIANA CHAMPION MR#: [id number] : 1955 Acct:[id number] Age/Sex: 69 / F ADM Date: 04/30/25 Loc: RAD Attending Dr: Jose Saucedo NP Ordering Physician: Jose Saucedo NP Date of Service: 04/30/25 Procedure(s): XR hip RT min 2V Accession Number(s): [id number] cc: Kaylene López NP; Jose Saucedo NP [facility] [place] [id number] Patient Name: DIANA CHAMPION MRN: [id number] date: 1955 Sex: F Assigned Patient Location: [facility] Current Patient Location: [facility] Accession/Order Number: [id number] Exam Date: 04/30/2025 13:45 Report Date: 04/30/2025 [...] Jr., D.O. 04/30/2025 1:46 PM Dictation Location: [place] [address] Electronically authenticated by: [id number] Y Date: 04/30/2025 13:46 Dictated By: Marcos Medina M.D. 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: LUCIA Radiology Radiologhernandez altman MD - 04/30/2025 [place] [address] XRay Report Signed Patient: DIANA CHAMPION MR#: [id number] : 1955 Acct:[id number] Age/Sex: 69 / F ADM Date: 04/30/25 Loc: RAD Attending Dr: Jose Saucedo NP Ordering Physician: Jose Saucedo NP Date of Service: 04/30/25 Procedure(s): XR hip RT min 2V Accession Number(s): [id number] cc: Kaylene López NP; Jose Saucedo NP [facility] [place] [id number] Patient Name: DIANA CHAMPION MRN: [id number] date: 1955 Sex: F Assigned Patient Location: [facility] Current Patient Location: RAD Accession/Order Number: [id number] Exam Date: 04/30/2025 13:45 Report Date: 04/30/2025 [...] PROCESS.. Impression dictated by: Marcos Medina Jr., DCarl 04/30/2025 1:46 PM Dictation Location: [place] [address] Electronically authenticated by: [id number] Y Date: 04/30/2025 13:46 Dictated By: Marcos Medina M.D. 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: [facility] Radiology Study observation (narrative) [facility] [address] XR Hip - right 3 ViewsOrdere d By: Radiologist Radiology on 04-30-[address] [facility] [address] Work Phone: Ambulatory Visit Summaryon 0 03-24-2025 Ambulatory Visit Summary Ambulatory Visit Summary DIANA CHAMPION :1955 Visit Date:03/24/2025 Ambulatory Visit Instructions Your Diagnosis Mixed incontinence Your Care Team Attending Physician - MAG BLOUNT PA-C Primary Care Physician - TAPAN ZAZUETA MD This Is Your Medications List albuterol (albuterol 0.083% Inh Meagan 3 mL) baclofen ferrous sulfate (ferrous sulfate 325 mg Tab) fluticasone/umeclidiniu m/vilanterol (fluticasone/umeclidini um/vilanterol 200 mcg-62.5 mcg-25 mcg/inh inhalation powder) furosemide [...] MAG BLOUNT PA-C Where: [facility] [address] [place] [address]- Medications What How Much When Instructions Unchanged [...] for choosing us for your care. Normal [facility] Urology Office/Clinic Noteon 03-24-2025 Urology Office/Clinic Note [...] rashes or suspicious lesions Assessment/Plan CHF - RUST [place] CKD - Joana COPD/Pulm - Samsa/Omballi. Required [...] IR BID. Pt currently rehabbing at [facility] d/t double pneumonia. Has been there x1 week, plan is to hopefully return home within the next week or so. F/u 3 mos to assess efficacy. Ordered: Body Mass Index (BMI) documented 3008F Current tobacco non-user 1036F Depression Screening Negative 3352F E&M of Est. Patient Moderate 30-39 Min 39568 Medication list documented in medical record 1159F [...] Tab, 325 mg= 1 tab(s), Oral, Daily fluticasone/umeclidiniu m/vilanterol 200 mcg-62.5 mcg-25 mcg/inh inhalation powder, Inhalation, [...] Substance Abuse (more content not included)... Normal [facility] Comment on above: Result Comment: Elec tronically Signed By: MAG BLOUNT PA-C\.victorina\Date and Time Signed: 03/24/25 10:44 EDT MG Breast - bilateral Screen ingon 03-03-2025 [place] [address] Mammography Report Signed Patient: DIANA CHAMPION MR#: [id number] : 1955 Acct:[id number] Age/Sex: 69 / F ADM Date: 03/03/25 Loc: MAMMO Attending Dr: Kaylene López NP Ordering Physician: Kaylene López NP Results: Date of Service: 03/03/25 Follow Up: Procedure(s): MM screening mammo BI Accession Number(s): [id number] cc: Kaylene López NP Patient Name: DIANA CHAMPION MR#: [id number] : 1955 Exam Date: 03/03/2025 Ordering Doctor: [...] radiation, chemotherapy Family Cancers None LOCATION: [facility] BREAST COMPOSITION: The breasts are almost [...] M.D. 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: [facility] Radiology, Radiologhernandez altman MD - 03/03/2025 [place] [address] Mammography Report Signed Patient: DIANA CHAMPION MR#: [id number] : 1955 Acct:[id number] Age/Sex: 69 / F ADM Date: 03/03/25 Loc: MAMMO Attending Dr: Kalyene López NP Ordering Physician: Kaylene López NP Results: Date of Service: 03/03/25 Follow Up: Procedure(s): MM screening mammo BI Accession Number(s): [id number] cc: Kaylene López NP Patient Name: DIANA CHAMPION MR#: [id number] : 1955 Exam Date: 03/03/2025 Ordering Doctor: [...] radiation, chemotherapy Family Cancers None LOCATION: [facility] BREAST COMPOSITION: The breasts are almost [...] M.D. 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: [facility] Radiology Study observation (narrative) [facility] MG Breast - bilateral Screen ingOrdered By: Radiologist Radiology on 03-03-2025 [facility] Work Phone: Office Visiton 01-23-2025 Follow-up visit [id number] Nell Champion 1955 F Date Provider Department Center 01/23/2025 271-LOYDA, HETAL CARD Blair Baker Family History Problem Relation Age of Onset Heart failure Mother Heart disease Father Family Status - Relation Status Age at Mother Father Level of Service:14077 LA OFFICE/OUTPATIENT ESTABLISHED LOW MDM 20 MIN Normal [facility] Laboratory - Microbiology an d Antimicrobial susceptibilityon 01-02-2025 SARS-CoV-2 (COVID-19) RNA KAYLEE+probe Ql (Unsp spec) Negative [facility] No Panel Informationon 01-02 FLU A Negative [facility] FLU B Negative [facility] Interpretation and review of laboratory results Normal [facility] XR Hip - right 3 Viewson Imaging Result: AP and Lateral right hip No acute fracture Mild SI joint arthritic changes Pt has severe arthritis to right hip joint with subchondral cyst and sclerosis to femoral head and acetabulum. Stable hardware left hip on AP view Impression: Severe right hip arthritis. [facility] Radiology Study observation (narrative) [facility] XR Knee - right 1 or [...] dislocation. Impression: Unremarkable right total knee arthroplasty [facility] Radiology Study observation (narrative) [facility] No Panel Informationon 12-13 Complexity: simple Destruction method: cryotherapy Informed consent: discussed and consent obtained Informed consent comment: The risks of the procedure were discussed, including, but not limited to risks of scarring, darker or funeral arrangement director pigmentary changes, recurrence, infection, and incomplete removal [...] or tenderness. Additional details: Previous accession number: [id number] [facility] No Panel InformationOrdered By: Pat Mcfarland on 12-13-2024 [facility] Work Phone: Abstracton 10-24-2024 Abstract [id number] Yannick Championclarice Fan 1955 F Date Provider Department Center 10/24/2024 Nicholas-EMELIA YOO ONC DCC Family History Problem Relation Age of Onset Heart failure Mother Heart disease Father Family Status - Relation Status Age at Mother Father Normal [facility] C Urineon 10-18-2024 Bacteria identified Cx Nom [...] 5,000 cfu/ml Mixed skin contaminants SUSCEPTIBILITY RESULTS ____ LEGEND: S=Susceptible, N/R=Not Reported, Blank=Data not available, or drug not advisable or tested, I=Intermediate, ESBL=Extended spectrum beta-lactamase, R=Resistant, TFG=Thymidine-dependent strain, AMY=Beta-lactamase positive, CUCO=mcg/m;(mg/L), S*=Predicted susceptible interp, R*=Predicted resistant interp ___ EC Entclo Klepne Antibiotic CUCO Dilutn CUCO [...] Locations R1: This test was performed at: [facility], [address] [place] [address], [address]- , [place], Normal [facility] Comment on above: Performed By: #### 2 [id number] #### [facility] [address] [place] [id number] Ambulatory Visit Summaryon 1 12-16-2023 Ambulatory Visit Summary Ambulatory Visit Summary DIANA CHAMPION :1955 Visit Date:10/15/2024 Ambulatory Visit Instructions Your Diagnosis Urge incontinence Your Care Team Attending Physician - JOSE ALEJANDRO MICHAUD, MAG Hester Primary Care Physician - CARLITA DRAPER, TAPAN Referring Physician - GUANACO, MS. AIDA CHAPA This Is Your Medications List albuterol (albuterol 0.083% Inh Meagan 3 mL) baclofen ferrous sulfate (ferrous sulfate 325 mg Tab) fluticasone/umeclidiniu m/vilanterol (fluticasone/umeclidini um/vilanterol 200 mcg-62.5 mcg-25 mcg/inh inhalation powder) furosemide [...] MICHAUD, MAG Hester Where: [facility] [address] [place] [address]- Medications What How Much When Instructions Unchanged [...] you for choosing us for your care. [facility] No Panel Informationon 10-11 Type of [...] taken Amount of lidocaine used: 0.5 cc [facility] 36on 09-20-2024 36 Faxed to [facility]. Ticker put in for Nov 2024 for patient to be scheduled with Dr. Church. [facility] 36on 09-12-2024 36 Patient called requesting clearance prior to cataract surgery. 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 Please advise. Thanks. [facility] EPITHELIAL CELLSon 4 Epithelial cells LM Ql (Urine sed) Epithelial Cells Few [facility] No Panel Informationon 08-13 [facility] RESULT 1on 08-13-2024 RESULT 1 Result 1 Moderate budding yeast present. [facility] RESULT 2on 08-13-2024 RESULT 2 Result 2 Few gram positive cocci [facility] RESULT 3on 08-13-2024 RESULT 3 Result 3 LINUX SUPPORT ENGINEER [facility] RESULT 4on 08-13-2024 RESULT 4 Result 4 LINUX SUPPORT ENGINEER [facility] WHITE BLOOD CELLSon 08-13-20 24 WHITE BLOOD CELLS White Blood Cells [facility] WHITE BLOOD CELLS Few [facility] ALL CBC WITH AUTO DIFFon BASOPHILS ABSOLUTE AUTO 0.1 N [facility] Basophils/100 WBC (Bld) 0.5 % 0.2 - 2.0 % [facility] Eosinophils/100 WBC (Bld) 1.5 % 0.9 - 7.0 % [facility] Erythrocyte distribution width (RBC) [Ratio] 13.0 % 11.0 - 15.0 % [facility] Hematocrit (Bld) [Volume fraction] 39.0 % 36.0 - 48.0 % [facility] Hemoglobin (Bld) [Mass/Vol] 12.2 g/dL 12.0 - 16.0 g/dL [facility] IMMATURE GRANULOCYTES ABS AUTO 0.22 High [facility] Immature granulocytes/100 WBC (Bld) 2.4 % High 0.0 - 0.5 % [facility] Interpretation and review of laboratory results Abnormal [facility] LYMPHOCYTES ABSOLUTE AUTO 1.6 [facility] Lymphocytes/100 WBC (Bld) 17.2 % Low 20.5 - 60.0 % [facility] MCH (RBC) [Entitic mass] 29.7 pg 26.7 - 34.0 pg [facility] MCHC (RBC) [Mass/Vol] 31.3 g/dL 29.9 - 35.2 g/dL [facility] MCV (RBC) [Entitic vol] 94.9 fL 81.0 - 99.0 fL [facility] MONOCYTES ABSOLUTE AUTO 0.8 N [facility] Monocytes/100 WBC (Bld) 8.3 % 1.7 - 12.0 % [facility] NEUTROPHILS ABSOLUTE AUTO 6.4 [facility] Neutrophils/100 WBC (Bld) 70.1 % 43.0 - 75.0 % [facility] Platelet mean volume (Bld) [Entitic vol] 8.8 fL Low 9.5 - 13.5 fL [facility] TBH EO # 0.1 [facility] TBH PLT 266 [facility] TB RBC 4.11 Low [facility] TB WBC 9.1 [facility] CLINISYNC [facility] Telemedicineon 07-11-2024 Telemedicine [id number] Nell Champion 1955 F Date Provider Department Center 07/11/2024 EMELIA MORALES DCC ONC DCC Family History Problem Relation Age of Onset Heart failure Mother Heart disease Father Family Status - Relation Status Age at Mother Father Level of Service:94272 LA PHYS/QHP TELEPHONE EVALUATION 21-30 MIN () Reason for Visit and Comments: Telehealth Phone Visit [062] - Tracheobronchomalacia follow up per Dr Canseco. [facility] HPon 07-02-2024 HP H&P reviewed. The [...] deficit PSYCH: appropriate mood, affect, and judgement. [facility] NURSNOTEon 07-02-2024 NURSNOTE Follow up at [facility] with Matthew Vargas May resume a Regular Diet and home medications. [facility] NURSNOTE Bronchoscopy Finding s: Tracheobronchomalacia [facility] Telephoneon 06-27-2024 Telephone [id number] Nlel Champion 1955 Date Provider Department Center 06/27/2024 910-SOURAV ESCOBAR ONC DCC Family History Problem Relation Age of Onset Heart failure Mother Heart disease Father Family Status - Relation Status Age at Mother Father [facility] Prep for Procedureon 024 Prep for Procedure [id number] Nell Champion 1955 Date Provider Department Center 06/26/2024 383-EMELIA YOO RUST PREOP [facility] Medical C Family History Problem Relation Age of Onset Heart failure Mother Heart disease Father Family Status - Relation Status Age at Mother Father [facility] HPon 06-25-2024 HP --- Attestation signed by Emelia Yoo MD at [...] Age: 68 y.o. : 1955 Account No.: [id number] Referring physician: Dr. Bo Mcclain Chief complaint: Recurreny pneumonia HPI Diana Champion is a 68 y.o. female with PMHx of reportedly COPD, chronic hypoxic respiratory failure on 2L home O2 who is presenting to clinic as a new patient after being referred by Dr. Bo Baker of [facility]. Patient has been admitted 4 times [...] years. 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 Her family history is positive for COPD [...] Asthma Cancer ([facility]) COPD (chronic obstructive pulmonary disease) ([facility]) Coronary artery disease GERD (gastroesophageal reflux [...] mouth every other day. Yes Historical Provider, szcxfoyboap-ajsxmynzn-s ilanter 100-62.5-25 mcg blister with device Yes Historical [...] mEq ER ta (more content not included)... 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 CT DONE 04-11-24 AND 06-07-24 AT [facility]. RECORDS SCANNED INTO MEDIA. FILMS REQUESTED- requested 3 times and [employer] IS DOWN. Could not get films. Normal [facility] Office Visiton 05-13-2024 Follow-up visit [id number] Nell Champion 1955 F Date Provider Department Center 05/13/2024 271-HETAL CHURCH [facility] Family History Problem Relation Age of Onset Heart failure Mother Heart disease Father Family Status - Relation Status Age at Mother Father Level of Service:78986 LA OFFICE/OUTPATIENT ESTABLISHED MOD MDM 30 MIN [facility] Erythrocyte distribution wid th Auto (RBC) [Ratio]on 03-06-2024 Erythrocyte distribution width (RBC) [Ratio] 13.2 % 11.0-15.0 [facility] Estimated glomerular filtrat ion rate (GFR) non- Americanon 03-06-2024 GFR/1.73 sq M.predicted among non-blacks MDRD (S/P/Bld) [Vol rate/Area] 57 mL/min/{1.73_m2} >=60 [facility] Hematocrit Auto (Bld) [Volum e fraction]on 03-06-2024 Hematocrit (Bld) [Volume fraction] 38.7 % 36.0-48.0 [facility] Hemoglobin [Mass/volume] in Bloodon 03-06-2024 Hemoglobin (Bld) [Mass/Vol] 12.2 g/dL 12.0-16.0 [facility] Laboratory - Chemistry and C hemistry - challengeon 03-06-2024 Albumin [Mass/Vol] 3.0 g/dL 3.4-5.0 [facility] Calcium [Mass/Vol] 8.8 mg/dL 8.5-10.1 [facility] Chloride [Moles/Vol] 104 mmol/L 98-107 [facility] CO2 [Moles/Vol] 32.2 mmol/L 21.0-32.0 [facility] Creatinine [Mass/Vol] 0.97 mg/dL 0.55-1.02 [facility] GFR/1.73 sq M.predicted MDRD (S/P/Bld) [Vol rate/Area] mL/min/{1.73_m2} >=60 [facility] Glucose [Mass/Vol] 67 mg/dL 74-106 [facility] Magnesium [Mass/Vol] 1.9 mg/dL 1.8-2.4 [facility] Potassium [Moles/Vol] 3.4 mmol/L 3.5-5.1 [facility] Sodium [Moles/Vol] 143 mmol/L 136-145 [facility] Urate [Mass/Vol] 5.0 mg/dL 2.6-6.0 [facility] Urea nitrogen [Mass/Vol] 16.0 mg/dL 7.0-18.0 [facility] Urea nitrogen/Creatinine [Mass ratio] 16.5 mg/mg [facility] Leukocytes [#/volume] correc melanie for nucleated erythrocytes in Blood by Automated counon 03-06-2024 WBC corrected for nucl RBC Auto (Bld) [#/Vol] 8.1 10 3/uL 4.0-11.0 [facility] MCH Auto (RBC) [Entitic mass ]on 03-06-2024 MCH (RBC) [Entitic mass] 30.4 pg 26.7-34.0 [facility] MCHC Auto (RBC) [Mass/Vol]on 03-06-2024 MCHC (RBC) [Mass/Vol] 31.5 g/dL 29.9-35.2 [facility] MCV Auto (RBC) [Entitic vol] on 03-06-2024 MCV (RBC) [Entitic vol] 96.5 fL 81.0-99.0 F [facility] No Panel Informationon 03-06 Urine Random Creatinine 63.27 mg/dL 20.0 0-300.0 0 [facility] Urine Random Total Protein <6.0 mg/dL <=11.9 [facility] 25-Hydroxy Vitamin D Total 37.1 ng/mL [facility] Comment on above: <20 ng/mL Vit D defi cient20-<30 ng/mL Vit D gfogmioumzep18-754 ng/mL Vit D sufficient>100 ng/mL Potential Toxicity Parathyroid Hormone (Intact) 36 pg/mL 15-65 [facility] Comment on above: Performed at: - [address] [id number] Director: Raphael Marrero PhD, Phone: [phone] Phosphorus Level 3.2 mg/dL 2.6-4.7 [facility] Platelet mean volume Auto (B ld) [Entitic vol]on 03-06-2024 Platelet mean volume (Bld) [Entitic vol] 9.1 fL 9.5-13.5 [facility] Platelets Auto (Bld) [#/Vol] on 03-06-2024 Platelets (Bld) [#/Vol] 247 10 3/uL 150-450 [facility] RBC Auto (Bld) [#/Vol]on RBC (Bld) [#/Vol] 4.01 10 6/uL 4.20-5.40 [facility] Serum or plasma anion gap de terminationon 03-06-2024 Anion gap [Moles/Vol] 10.2 mmol/L [facility] SYMPTOMATIC COVID-19 ANTIGEN on 04-04-2023 EUA Statement SEE BELOW Normal [facility] Comment on above: Result [...] sooner. Performed By: #### C VDAGS #### [facility] [address] [place] [address] [address] Shayne Roldan SARS-CoV-2 (COVID-19) RNA KAYLEE+probe Ql (Unsp spec) Positive Abnormal NEGATIVE [facility] Comment on above: Performed By: #### C VDAGS #### [facility] [address] [place], [place] [address] Dr. Shayne Roldan XR LSPINE 2_3 VIEWSon [...] STEPH GRANADOS Date: 2023-03-24 12:52 Normal [facility] PTH INTACTon 02-27-2023 PTH, Intact 87 pg/mL Critically high 15-65 [facility] Comment on above: Performed By: #### P THINT #### [facility] [address] [place] [address] [address] Shayne Roldan HEMOGRAM AND PLATELon 2022 Hematocrit (Bld) [Volume fraction] 44.4 % Normal 36.0-48.0 [facility] Comment on above: Performed By: #### H H #### [facility] [address] [place] [address] Dr. Shayne Roldan Hemoglobin (Bld) [Mass/Vol] 14.5 g/dL Normal 12.0-16.0 [facility] Comment on above: Performed By: #### H H #### [facility] [address] [place] [address] Dr. Shayne Roldan MCH (RBC) [Entitic mass] 30.3 pg Normal 26.7-34.0 [facility] Comment on above: Performed By: #### H H #### [facility] [address] [place] [address] Dr. Shayne Roldan MCHC (RBC) [Mass/Vol] 32.7 g/dL Normal 29.9-35.2 [facility] Comment on above: Performed By: #### H H #### [facility] [address] [place] [address] [address] Shayne Roldan MCV (RBC) [Entitic vol] 92.9 fL Normal 81.0-99.0 [facility] Comment on above: Performed By: #### H H #### [facility] [address] [place] [address] Dr. Shayne Roldan PLT 367 103/ul Normal 150-450 [facility] Comment on above: Performed By: #### H H #### [facility] [address] [place] [address] Dr. Shayne Roldan RBC 4.78 106/ul Normal 4.20-5.40 [facility] Comment on above: Performed By: #### H H #### [facility] [address] [place] [address] Dr. Shayne Roldan WBC 9.9 103/ul Normal 4.0-11.0 [facility] Comment on above: Performed By: #### H H #### [facility] [address] [place] [address] Dr. Shayne Roldan MAGNESIUMon 02-25-2023 Magnesium [Mass/Vol] 1.6 mg/dL Critically low 1.8-2.4 [facility] Comment on above: Performed By: #### M G, RENAL, URIC #### [facility] [address] [place] [address] Dr. Shayne Roldan RENAL FUNCTION PANELon 02-25 Albumin [Mass/Vol] 3.4 g/dL Normal 3.4-5.0 [facility] Comment on above: Performed By: #### M G, RENAL, URIC #### [facility] [address] [place] [address] Dr. Shayne Roldan Calcium [Mass/Vol] 8.7 mg/dL Normal 8.5-10.1 [facility] Comment on above: Performed By: #### M G, RENAL, URIC #### [facility] [address] [place] [address] Dr. Shayne Roldan Chloride [Moles/Vol] 104 mmol/L Normal 98-107 [facility] Comment on above: Performed By: #### M G, RENAL, URIC #### [facility] [address] [place] [address] Dr. Shayne Roldan CO2 [Moles/Vol] 25.9 mmol/L Normal 21.0-32.0 [facility] Comment on above: Performed By: #### M G, RENAL, URIC #### [facility] [address] [place] [address] Dr. Shayne Roldan Creatinine [Mass/Vol] 1.19 mg/dL Critically high 0.55-1.02 [facility] Comment on above: Performed By: #### M G, RENAL, URIC #### [facility] [address] [address] [address] Shayne Roldan EGFR-AF ZIMBABWEAN 55 mL/min/1.73m2 Critically low >=60 [facility] Comment on above: Performed By: #### M G, RENAL, URIC #### [facility] [address] [place] [address] [address] Shayne Roldan EGFR-NON AF ZIMBABWEAN 45 mL/min/1.73m2 Critically low >=60 [facility] Comment on above: Performed By: #### M G, RENAL, URIC #### [facility] [address] [place] [address] Dr. Shayne Roldan Glucose [Mass/Vol] 193 mg/dL Critically high 74-106 [facility] Comment on above: Performed By: #### M G, RENAL, URIC #### [facility] [address] [place] [address] Dr. Shayne Roldan Phosphate [Mass/Vol] 3.2 mg/dL Normal 2.6-4.7 [facility] Comment on above: Performed By: #### M G, RENAL, URIC #### [facility] [address] [place] [address] Dr. Shayne Roldan Potassium [Moles/Vol] 3.9 mmol/L Normal 3.5-5.1 [facility] Comment on above: Performed By: #### M G, RENAL, URIC #### [facility] [address] [place] [address] Dr. Shayne Roldan Sodium [Moles/Vol] 140 mmol/L Normal 136-145 [facility] Comment on above: Performed By: #### M G, RENAL, URIC #### [facility] [address] [place] [address] Dr. Shayne Roldan Urea nitrogen [Mass/Vol] 17.0 mg/dL Normal 7.0-18.0 [facility] Comment on above: Performed By: #### M G, RENAL, URIC #### [facility] [address] [address] [address] Shayne Roldan UA RANDOM W/MICROSCOPICon BACTERIA TRACE Abnormal NONE SEEN [facility] Comment on above: Performed By: #### M G, RENAL, URIC #### [facility] [address] [address] [address] Shayne Roldan Bilirubin Ql (U) Negative Normal NEGATIVE [facility] Comment on above: Performed By: #### M G, RENAL, URIC #### [facility] [address] [address] [address] Shayne Roldan CAST NONE SEEN Normal NONE SEEN [facility] Comment on above: Performed By: #### M G, RENAL, URIC #### [facility] [address] [place] [address] Dr. Shayne Roldan Clarity (U) CLEAR Normal CLEAR [facility] Comment on above: Performed By: #### M G, RENAL, URIC #### [facility] [address] [address] [address] Shayne Roldan Color (U) LT. YELLOW Normal YELLOW [facility] Comment on above: Performed By: #### M G, RENAL, URIC #### [facility] [address] [address] [address] Shayne Roldan Crystals LM Nom (Urine sed) NONE SEEN Normal NONE SEEN [facility] Comment on above: Performed By: #### M G, RENAL, URIC #### [facility] [address] [address] [address] Shayne Roldan Epithelial cells LM Ql (Urine sed) RARE Normal NONE SEEN /RARE [facility] Comment on above: Performed By: #### M G, RENAL, URIC #### [facility] [address] [place] [address] Dr. Shayne Roldan Glucose Ql (U) Negative Normal NEGATIVE [facility] Comment on above: Performed By: #### M G, RENAL, URIC #### [facility] [address] [address] [address] Shayne Roldan Hemoglobin Ql (U) Negative Normal NEGATIVE [facility] Comment on above: Performed By: #### M G, RENAL, URIC #### [facility] [address] [address] [address] Shayne Roldan Ketones Ql (U) Negative Normal NEGATIVE [facility] Comment on above: Performed By: #### M G, RENAL, URIC #### [facility] [address] [address] [address] Shayne Roldan LEUKOCYTES Negative Normal NEGATIVE [facility] Comment on above: Performed By: #### M G, RENAL, URIC #### [facility] [address] [address] [address] Shayne Roldan MUCOUS NONE SEEN Normal NONE SEEN [facility] Comment on above: Performed By: #### M G, RENAL, URIC #### [facility] [address] [place] [address] Dr. Shayne Roldan Nitrite Ql (U) Negative Normal NEGATIVE [facility] Comment on above: Performed By: #### M G, RENAL, URIC #### [facility] [address] [place] [address] Dr. Shayne Roldan pH (U) 5.0 [pH] Normal 5-9 [facility] Comment on above: Performed By: #### M G, RENAL, URIC #### [facility] [address] [place] [address] Dr. Shayne Roldan RBC 0-2 Normal 0-2 [facility] Comment on above: Performed By: #### M G, RENAL, URIC #### [facility] [address] [address] [address] Shayne Roldan SPEC GRAVITY 1.025 Normal 1.005-<=1.0 25 [facility] Comment on above: Performed By: #### M G, RENAL, URIC #### [facility] [address] [place] [address] Dr. Shayne Roldan UA PROTEIN Negative Normal NEGATIVE/ TRACE [facility] Comment on above: Performed By: #### M G, RENAL, URIC #### [facility] [address] [address] [address] Shayne Roldan Urobilinogen Qn (U) 0.2 {Rogelio'U}/dL Normal 0.2 - 1. 0 [facility] Comment on above: Performed By: #### M G, RENAL, URIC #### [facility] [address] [address] [address] Shayne Roldan WBC 0-2 Abnormal NONE SEEN [facility] Comment on above: Performed By: #### M G, RENAL, URIC #### [facility] [address] [address] [address] Shayne Roldan URIC ACID SERUMon 02-25-2023 Urate [Mass/Vol] 6.1 mg/dL Critically high 2.6-6.0 [facility] Comment on above: Performed By: #### M G, RENAL, URIC #### [facility] [address] [place] [address] Dr. Shayne Roldan URINE T PROTEIN CREAT RATIOo n 02-25-2023 Protein (U) [Mass/Vol] 13.0 mg/dL Critically high <=12.0 [facility] Comment on above: Performed By: #### M G, RENAL, URIC #### [facility] [address] [place] [address] Dr. Shayne Roldan UR PROT CREAT RAT 0.16 Normal [facility] Comment on above: Performed By: #### M G, RENAL, URIC #### [facility] [address] [place] [address] Dr. Shayne Roldan URINE CREAT 83.60 mg/dL Normal 20.00-300.0 0 [facility] Comment on above: Performed By: #### M G, RENAL, URIC #### [facility] [address] [place] [address] Dr. Shayne Roldan VITAMIN D 25 OHon 02-25-2023 VIT D 25-OH 41.6 ng/mL Normal [facility] Comment on above: Performed By: #### M G, RENAL, URIC #### [facility] [address] [place] [address] Dr. Shayne Roldan VIT D RANGES SEE BELOW Normal [facility] Comment on above: Result Comment: <20 ng/mL Vit D deficient 20 - <30 ng/mL Vit D insufficient 30 - 100 ng/mL Vit D sufficient >100 ng/mL Potential Toxicity Performed By: #### M G, RENAL, URIC #### [facility] [address] [place], [place] [address] Dr. Shayne Roldan XR CHEST 2 Von [...] by: BRITTANY GALDAMEZ Date: 2023-02-22 16:15 Normal [facility] MAMM SCREEN 3D PRATEEK CADon 12-15-2022 MAMM SCREEN 3D PRATEEK CAD Patient: DIANA CHAMPION Exam Date: 12/15/2022 : 1955 Gender:F Ordering : DR JACK HALL . Admission #: [id number] Family : Order #: [id number] CLICK HERE TO VIEW EXAM RADIOLOGY REPORT PROCEDURE: MAMMOGRAM SCREENING 3D BILATERAL CAD COMPARISON: MAMM SCREEN 3D PRATEEK CAD, 11/26/2021. INDICATIONS: Calculator Name NCI Breast Cancer Risk Assessment Tool 5 Year Breast Cancer Risk 1.20% Lifetime Breast Cancer Risk 4.40% Personal Breast Cancer No Personal Ovarian Cancer No Treatments Excision, radiation, chemotherapy Family Cancers None LOCATION: [facility] BREAST COMPOSITION: Almost entirely fatty. FINDINGS: [...] Walters MD on 12/15/2022 at 10:51 Normal [facility] XR DEXA BONE DENSITYon 12-15 XR DEXA [...] authenticated by: STEPH GRANADOS Date: 2022-12-15 09:50 [facility] PAP ACOG PANEL 2: 30 to 65on 11-16-2022 . . Normal [facility] Comment on above: Performed By: #### [id number] #### [facility] [address] [place] [address] Dr. Shayne Roldan Age Gdln ACOG Testing Comment Normal [facility] Comment on above: Result Comment: <21 or >65 or no age provided Performed By: #### [id number] #### [facility] [address] [place] [address] Dr. Shayne Roldan DIAGNOSIS: Comment [facility] Comment on above: Result Comment: NEGA TIVE FOR INTRAEPITHELIAL LESION OR MALIGNANCY. Performed By: #### [id number] #### [facility] [address] [place] [address] Dr. Shayne Roldan Methodology: Comment [facility] Comment on above: Result Comment: This liquid based ThinPrep(R) pap test was screened with the use of an image guided system. Performed By: #### [id number] #### [facility] [address] [place] [address] Dr. Shayne Roldan Note: Comment [facility] Comment on above: Result Comment: The Pap smear is a screening test designed to aid in the detection of premalignant and malignant conditions of the uterine cervix. It is not a diagnostic procedure and should not be used as the sole means of detecting cervical cancer. Both false-positive and false-negative reports do occur. . Performed By: #### [id number] #### [facility] [address] [place] [address] Dr. Shayne Roldan Performed by: Comment Normal [facility] Comment on above: Result Comment: Onur Aguilar Heart Specialist (ASCP) Performed By: #### [id number] #### [facility] [address] [place] [address] Dr. Shayne Roldan Specimen adequacy: Comment Normal [facility] Comment on above: Result Comment: Sati sfactory for evaluation. Endocervical and/or squamous metaplastic cells (endocervical component) are present. Performed By: #### [id number] #### [facility] [address] [place] [address] Dr. Shayne Roldan RENAL FUNCTION PANELon 08-19 Albumin [Mass/Vol] 3.4 g/dL Normal 3.4-5.0 [facility] Comment on above: Performed By: #### M G, RENAL, URIC #### [facility] [address] [place] [address] Dr. Shayne Roldan Calcium [Mass/Vol] 8.4 mg/dL Critically low 8.5-10.1 [facility] Comment on above: Performed By: #### M G, RENAL, URIC #### [facility] [address] [place] [address] Dr. Shayne Roldan Chloride [Moles/Vol] 103 mmol/L Normal 98-107 [facility] Comment on above: Performed By: #### M G, RENAL, URIC #### [facility] [address] [place] [address] Dr. Shayne Roldan CO2 [Moles/Vol] 27.8 mmol/L Normal 21.0-32.0 [facility] Comment on above: Performed By: #### M G, RENAL, URIC #### [facility] [address] [place] [address] Dr. Shayne Roldan Creatinine [Mass/Vol] 1.02 mg/dL Normal 0.55-1.02 [facility] Comment on above: Performed By: #### M G, RENAL, URIC #### [facility] [address] [place] [address] Dr. Shayne Roldan EGFR-AF ZIMBABWEAN >60 Normal >=60 [facility] Comment on above: Performed By: #### M G, RENAL, URIC #### [facility] [address] [place] [address] Dr. Shayne Roldan EGFR-NON AF ZIMBABWEAN 54 mL/min/1.73m2 Critically low >=60 [facility] Comment on above: Performed By: #### M G, RENAL, URIC #### [facility] [address] [place] [address] Dr. Shayne Roldan Glucose [Mass/Vol] 110 mg/dL Critically high 74-106 [facility] Comment on above: Performed By: #### M G, RENAL, URIC #### [facility] [address] [place] [address] Dr. Shayne Roldan Phosphate [Mass/Vol] 2.3 mg/dL Critically low 2.6-4.7 [facility] Comment on above: Performed By: #### M G, RENAL, URIC #### [facility] [address] [place] [address] Dr. Shayne Roldan Potassium [Moles/Vol] 3.2 mmol/L Critically low 3.5-5.1 [facility] Comment on above: Performed By: #### M G, RENAL, URIC #### [facility] [address] [place] [address] Dr. Shayne Roldan Sodium [Moles/Vol] 138 mmol/L Normal 136-145 [facility] Comment on above: Performed By: #### M G, RENAL, URIC #### [facility] [address] [place] [address] Dr. Shayne Roldan Urea nitrogen [Mass/Vol] 14.0 mg/dL Normal 7.0-18.0 [facility] Comment on above: Performed By: #### M G, RENAL, URIC #### [facility] [address] [place] [address] Dr. Shayne Roldan PTH INTACTon 08-06-2022 PTH, Intact 40 pg/mL Normal 15-65 [facility] Comment on above: Performed By: #### M G, RENAL, URIC #### [facility] [address] [place] [address] Dr. Shayne Roldan HEMOGRAM AND PLATELon 2021 Hematocrit (Bld) [Volume fraction] 39.8 % Normal 36.0-48.0 [facility] Comment on above: Performed By: #### M G, RENAL, URIC #### [facility] [address] [place] [address] Dr. Shayne Roldan Hemoglobin (Bld) [Mass/Vol] 13.4 g/dL Normal 12.0-16.0 [facility] Comment on above: Performed By: #### M G, RENAL, URIC #### [facility] [address] [place] [address] Dr. Shayne Roldan MCH (RBC) [Entitic mass] 30.5 pg Normal 26.7-34.0 [facility] Comment on above: Performed By: #### M G, RENAL, URIC #### [facility] [address] [place] [address] Dr. Shayne Roldan MCHC (RBC) [Mass/Vol] 33.7 g/dL Normal 29.9-35.2 [facility] Comment on above: Performed By: #### M G, RENAL, URIC #### [facility] [address] [place] [address] Dr. Shayne Roldan MCV (RBC) [Entitic vol] 90.5 fL Normal 81.0-99.0 [facility] Comment on above: Performed By: #### M G, RENAL, URIC #### [facility] [address] [place] [address] Dr. Shayne Roldan PLT 299 103/ul Normal 150-450 [facility] Comment on above: Performed By: #### M G, RENAL, URIC #### [facility] [address] [place] [address] Dr. Shayne Roldan RBC 4.40 106/ul Normal 4.20-5.40 [facility] Comment on above: Performed By: #### M G, RENAL, URIC #### [facility] [address] [address] [address] Shayne Roldan WBC 8.8 103/ul Normal 4.0-11.0 [facility] Comment on above: Performed By: #### M G, RENAL, URIC #### [facility] [address] [place] [address] Dr. Shayne Roldan MAGNESIUMon 08-05-2022 Magnesium [Mass/Vol] 1.5 mg/dL Critically low 1.8-2.4 [facility] Comment on above: Performed By: #### M G, RENAL, URIC #### [facility] [address] [place] [address] Dr. Shayne Roldan RENAL FUNCTION PANELon 08-05 Albumin [Mass/Vol] 3.5 g/dL Normal 3.4-5.0 [facility] Comment on above: Performed By: #### M G, RENAL, URIC #### [facility] [address] [address] [address] Shayne Roldan Calcium [Mass/Vol] 8.4 mg/dL Critically low 8.5-10.1 [facility] Comment on above: Performed By: #### M G, RENAL, URIC #### [facility] [address] [place] [address] Dr. Shayne Roldan Chloride [Moles/Vol] 101 mmol/L Normal 98-107 [facility] Comment on above: Performed By: #### M G, RENAL, URIC #### [facility] [address] [place] [address] Dr. Shayne Roldan CO2 [Moles/Vol] 29.5 mmol/L Normal 21.0-32.0 [facility] Comment on above: Performed By: #### M G, RENAL, URIC #### [facility] [address] [place] [address] Dr. Shayne Roldan Creatinine [Mass/Vol] 1.04 mg/dL Critically high 0.55-1.02 [facility] Comment on above: Performed By: #### M G, RENAL, URIC #### [facility] [address] [address] [address] Shayne Roldan EGFR-AF ZIMBABWEAN >60 Normal >=60 [facility] Comment on above: Performed By: #### M G, RENAL, URIC #### [facility] [address] [address] [address] Shayne Roldan EGFR-NON AF ZIMBABWEAN 53 mL/min/1.73m2 Critically low >=60 [facility] Comment on above: Performed By: #### M G, RENAL, URIC #### [facility] [address] [address] [address] Shayne Roldan Glucose [Mass/Vol] 92 mg/dL Normal 74-106 [facility] Comment on above: Performed By: #### M G, RENAL, URIC #### [facility] [address] [place] [address] Dr. Shayne Roldan Phosphate [Mass/Vol] 2.4 mg/dL Critically low 2.6-4.7 [facility] Comment on above: Performed By: #### M G, RENAL, URIC #### [facility] [address] [address] [address] Shayne Roldan Potassium [Moles/Vol] 2.8 mmol/L Critically low 3.5-5.1 [facility] Comment on above: Performed By: #### M G, RENAL, URIC #### [facility] [address] [address] [address] Shayne Roldan Sodium [Moles/Vol] 137 mmol/L Normal 136-145 [facility] Comment on above: Performed By: #### M G, RENAL, URIC #### [facility] [address] [address] [address] Shayne Roldan Urea nitrogen [Mass/Vol] 10.0 mg/dL Normal 7.0-18.0 [facility] Comment on above: Performed By: #### M G, RENAL, URIC #### [facility] [address] [address] [address] Shayne Roldan UA RANDOM W/MICROSCOPICon BACTERIA SMALL Abnormal NONE SEEN [facility] Comment on above: Performed By: #### U AMIC #### [facility] [address] [place] [address] Dr. Shayne Roldan Bilirubin Ql (U) Negative Normal NEGATIVE [facility] Comment on above: Performed By: #### U AMIC #### [facility] [address] [address] [address] Shayne Roldan CAST NONE SEEN Normal NONE SEEN [facility] Comment on above: Performed By: #### U AMIC #### [facility] [address] [place] [address] Dr. Shayne Roldan Clarity (U) CLEAR Normal CLEAR [facility] Comment on above: Performed By: #### U AMIC #### [facility] [address] [place] [address] Dr. Shayne Roldan Color (U) LT. YELLOW Normal YELLOW [facility] Comment on above: Performed By: #### U AMIC #### [facility] [address] [place] [address] Dr. Shayne Roldan Crystals LM Nom (Urine sed) NONE SEEN Normal NONE SEEN [facility] Comment on above: Performed By: #### U AMIC #### [facility] [address] [place] [address] Dr. Shayne Roldan Epithelial cells LM Ql (Urine sed) FEW Abnormal NONE SEEN /RARE [facility] Comment on above: Performed By: #### U AMIC #### [facility] [address] [address] [address] Shayne Roldan Glucose Ql (U) Negative Normal NEGATIVE [facility] Comment on above: Performed By: #### U AMIC #### [facility] [address] [place] [address] Dr. Shayne Roldan Hemoglobin Ql (U) Negative Normal NEGATIVE [facility] Comment on above: Performed By: #### U AMIC #### [facility] [address] [place] [address] Dr. Shayne Roldan Ketones Ql (U) Negative Normal NEGATIVE [facility] Comment on above: Performed By: #### U AMIC #### [facility] [address] [place] [address] Dr. Shayne Roldan LEUKOCYTES TRACE Abnormal NEGATIVE [facility] Comment on above: Performed By: #### U AMIC #### [facility] [address] [place] [address] Dr. Shayne Roldan MUCOUS NONE SEEN Normal NONE SEEN [facility] Comment on above: Performed By: #### U AMIC #### [facility] [address] [address] [address] Shayne Roldan Nitrite Ql (U) Negative Normal NEGATIVE [facility] Comment on above: Performed By: #### U AMIC #### [facility] [address] [place] [address] Dr. Shayne Roldan pH (U) 6.0 [pH] Normal 5-9 [facility] Comment on above: Performed By: #### U AMIC #### [facility] [address] [place] [address] Dr. Shayne Roldan RBC NONE SEEN Abnormal 0-2 [facility] Comment on above: Performed By: #### U AMIC #### [facility] [address] [place] [address] Dr. Shayne Roldan SPEC GRAVITY <=1.005 Abnormal 1.005-<=1.0 25 [facility] Comment on above: Performed By: #### U AMIC #### [facility] [address] [place] [address] Dr. Shayne Roldan UA PROTEIN Negative Normal NEGATIVE/ TRACE [facility] Comment on above: Performed By: #### U AMIC #### [facility] [address] [place] [address] Dr. Shayne Roldan Urobilinogen Qn (U) 0.2 {Rogelio'U}/dL Normal 0.2 - 1. 0 [facility] Comment on above: Performed By: #### U AMIC #### [facility] [address] [place] [address] Dr. Shayne Roldan WBC 5-10 Abnormal NONE SEEN [facility] Comment on above: Performed By: #### U AMIC #### [facility] [address] [place] [address] Dr. Shayne Roldan URIC ACID SERUMon 08-05-2022 Urate [Mass/Vol] 6.5 mg/dL Critically high 2.6-6.0 [facility] Comment on above: Performed By: #### M G, RENAL, URIC #### [facility] [address] [place] [address] Dr. Shayne Roldan URINE T PROTEIN CREAT RATIOo n 08-05-2022 Protein (U) [Mass/Vol] 4.8 mg/dL Normal <=12.0 [facility] Comment on above: Performed By: #### U RTPCR #### [facility] [address] [place] [address] Dr. Shayne Roldan UR PROT CREAT RAT 0.09 Normal [facility] Comment on above: Performed By: #### U RTPCR #### [facility] [address] [place] [address] Dr. Shayne Roldan URINE CREAT 52.65 mg/dL Normal 20.00-300.0 0 [facility] Comment on above: Performed By: #### U RTPCR #### [facility] [address] [place] [address] Dr. Shayne Roldan VITAMIN D 25 OHon 08-05-2022 VIT D 25-OH 38.9 ng/mL Normal [facility] Comment on above: Performed By: #### M G, RENAL, URIC #### [facility] [address] [place] [address] Dr. Shayne Roldan VIT D RANGES SEE BELOW Normal [facility] Comment on above: Result Comment: <20 ng/mL Vit D deficient 20 - <30 ng/mL Vit D insufficient 30 - 100 ng/mL Vit D sufficient >100 ng/mL Potential Toxicity Performed By: #### M G, RENAL, URIC #### [facility] [address] [place] [address] Dr. Shayne Roldan IMMUNOGLOBULINS IGA/IGM/IGG/ IGE QUANTITAon 07-12-2022 Immunoglobulin A, Qn, Serum 295 mg/dL Normal 87-352 [facility] Comment on above: Result Comment: Perf ormed at: CB Performed By: #### M G, RENAL, URIC #### [facility] [address] [place] [address] Dr. Shayne Roldan Immunoglobulin E, Total 32 IU/mL Normal 6-495 [facility] Comment on above: Result Comment: Perf ormed at: BN Performed By: #### M G, RENAL, URIC #### [facility] [address] [place] [address] Dr. Shayne Roldan Immunoglobulin G, Qn, Serum 729 mg/dL Normal 586-1602 [facility] Comment on above: Result Comment: Perf ormed at: CB Performed By: #### M G, RENAL, URIC #### [facility] [address] [place] [address] Dr. Shayne Roldan Immunoglobulin M, Qn, Serum 75 mg/dL Normal 26-217 [facility] Comment on above: Result Comment: Perf ormed at: CB Performed By: #### M G, RENAL, URIC #### [facility] [address] [place] [address] Dr. Shayne Roldan CBC AUTO DIFFon 07-05-2022 BASO # 0.1 103/ul Normal 0.0-0.1 [facility] Comment on above: Performed By: #### M G, RENAL, URIC #### [facility] [address] [place] [address] Dr. Shayne Roldan Basophils/100 WBC (Bld) 0.7 % Normal 0.2-2.0 [facility] Comment on above: Performed By: #### M G, RENAL, URIC #### [facility] [address] [place] [address] Dr. Shayne Roldan EO # 0.4 103/ul Normal 0.0-0.7 [facility] Comment on above: Performed By: #### M G, RENAL, URIC #### [facility] [address] [place] [address] Dr. Shayne Roldan Eosinophils/100 WBC (Bld) 4.4 % Normal 0.9-7.0 [facility] Comment on above: Performed By: #### M G, RENAL, URIC #### [facility] [address] [place] [address] Dr. Shayne Roldan Erythrocyte distribution width (RBC) [Ratio] 12.6 % Normal 11.0-15.0 [facility] Comment on above: Performed By: #### M G, RENAL, URIC #### [facility] [address] [place] [address] Dr. Shayne Roldan Hematocrit (Bld) [Volume fraction] 40.2 % Normal 36.0-48.0 [facility] Comment on above: Performed By: #### M G, RENAL, URIC #### [facility] [address] [place] [address] Dr. Shayne Roldan Hemoglobin (Bld) [Mass/Vol] 13.6 g/dL Normal 12.0-16.0 [facility] Comment on above: Performed By: #### M G, RENAL, URIC #### [facility] [address] [place] [address] Dr. Shayne Roldan IG # 0.07 10e3/ul Critically high 0.00-0.03 [facility] Comment on above: Performed By: #### M G, RENAL, URIC #### [facility] [address] [place] [address] Dr. Shayne Roldan IG % 0.8 % Critically high 0.0-0.[address] [facility] Comment on above: Performed By: #### M G, RENAL, URIC #### [facility] [address] [place] [address] Dr. Shayne Roldan LYMPH # 2.3 103/ul Normal 1.2-3.8 [facility] Comment on above: Performed By: #### M G, RENAL, URIC #### [facility] [address] [place] [address] Dr. Shayne Roldan Lymphocytes/100 WBC (Bld) 24.7 % Normal 20.5-60.0 [facility] Comment on above: Performed By: #### M G, RENAL, URIC #### [facility] [address] [place] [address] Dr. Shayne Roldan MANUAL DIFF REQ NO Normal [facility] Comment on above: Performed By: #### M G, RENAL, URIC #### [facility] [address] [place] [address] Dr. Shayne Roldan MCH (RBC) [Entitic mass] 30.7 pg Normal 26.7-34.0 [facility] Comment on above: Performed By: #### M G, RENAL, URIC #### [facility] [address] [place] [address] Dr. Shayne Roldan MCHC (RBC) [Mass/Vol] 33.8 g/dL Normal 29.9-35.2 [facility] Comment on above: Performed By: #### M G, RENAL, URIC #### [facility] [address] [place] [address] Dr. Shayne Roldan MCV (RBC) [Entitic vol] 90.7 fL Normal 81.0-99.0 [facility] Comment on above: Performed By: #### M G, RENAL, URIC #### [facility] [address] [place] [address] Dr. Shayne Roldan MONO # 0.7 103/ul Normal 0.3-0.8 [facility] Comment on above: Performed By: #### M G, RENAL, URIC #### [facility] [address] [place] [address] Dr. Shayne Roldan Monocytes/100 WBC (Bld) 7.7 % Normal 1.7-12.0 [facility] Comment on above: Performed By: #### M G, RENAL, URIC #### [facility] [address] [place] [address] Dr. Shayne Roldan NEUT # 5.7 103/ul Normal 1.4-6.5 [facility] Comment on above: Performed By: #### M G, RENAL, URIC #### [facility] [address] [place] [address] Dr. Shayne Roldan Neutrophils/100 WBC (Bld) 61.7 % Normal 43.0-75.0 [facility] Comment on above: Performed By: #### M G, RENAL, URIC #### [facility] [address] [place], [place] [address] Dr. Shayne Roldan Platelet mean volume (Bld) [Entitic vol] 8.8 fL Critically low 9.5-13.5 [facility] Comment on above: Performed By: #### M G, RENAL, URIC #### [facility] [address] [place], [place] [address] Dr. Shayne Roldan PLT 279 103/ul Normal 150-450 [facility] Comment on above: Performed By: #### M G, RENAL, URIC #### [facility] [address] [place], [place] [address] Dr. Shayne Roldan RBC 4.43 106/ul Normal 4.20-5.40 [facility] Comment on above: Performed By: #### M G, RENAL, URIC #### [facility] [address] [place] [address] [address] Shayne Roldan WBC 9.1 103/ul Normal 4.0-11.0 [facility] Comment on above: Performed By: #### M G, RENAL, URIC #### [facility] [address] [place], [place] [address] Dr. Shayne Roldan Covid-19 PCR ([facility])on SARS-CoV-2 (COVID-19) RNA KAYLEE+probe Ql (Unsp spec) Not detected Normal NOT DETECTED [facility] Comment on above: Result Comment: This test is not yet approved or cleared by the [place] FDA. When there are no FDA-approved or cleared tests available, and other criteria are met, FDA can make tests available under an emergency access mechanism called an Emergency Use Authorization (EUA). The EUA for this test is supported by the Superintendent Of Schools of Health and Human Service's (HHS's) declaration [...] By: #### M G, RENAL, URIC #### [facility] [address] [place], [place] [address] Dr. Shayne Roldan XR CHEST 2 Von [...] NARDA LONDONO Date: 2022-06-08 19:58 Normal [facility] Covid-19 PCR ([facility])on SARS-CoV-2 (COVID-19) RNA KAYLEE+probe Ql (Unsp spec) Not detected Normal NOT DETECTED [facility] Comment on above: Result Comment: This test is not yet approved or cleared by the [place] FDA. When there are no FDA-approved or cleared tests available, and other criteria are met, FDA can make tests available under an emergency access mechanism called an Emergency Use Authorization (EUA). The EUA for this test is supported by the Ruth of Health and Human Service's (HHS's) declaration [...] SARS-CoV-2. Performed By: #### C VDTBH #### [facility] [address] [place], [place] [address] Dr. Shayne Roldan DEXA AXIALon 04-26-2022 DEXA AXIAL [facility] Department of Radiology [address] [place] [address] ===== Patient Name: DIANA CHAMPION : 1955 Sex: F Age: Race: White Pt. Location: Patient Status: D Ordered Date: 02/24/2022 1:25:00 PM Completed Date: 03/01/2022 09:46 AM Requesting Provider: CINDA ANTONIO Attending Provider: Report Copy To: Signs & Symptoms: Z78.0 Asymptomatic menopausal state I10 History: Jessica Comments: Exam: DEXA AXIAL ===== DEXA AXIAL 03/01/2022 9:46 AM CLINICAL INDICATIONS: [...] characteristics. Electronically signed: Luzma Marks. Transcribed by: [email or web address], User Resident: Electronically Signed by: LUZMA MARKS @ 03/02/2022 01:07 PM Normal [facility] SCOLIOSIS 2 [facility] 02-24-2022 SCOLIOSIS 2 [facility] Department of Radiology [address] [place] [id number] ===== Patient Name: DIANA CHAMPION : 1955 Sex: F Age: Race: White Pt. Location: Patient Status: D Ordered Date: 02/24/2022 1:25:00 PM Completed Date: 02/24/2022 01:44 PM Requesting Provider: CINDA ANTONIO Attending Provider: Report Copy To: Signs & Symptoms: M43.10 Spondylolisthesis, site unspecified I10 History: Comments: Views (X-RAY, SCOLIOSIS): PA, Lateral evaluate Exam: SCOLIOSIS 2 [facility] ===== Scoliosis. Worsening pain. Frontal and lateral thoracolumbar spine IMPRESSION: 1. Diffuse disc disease and facet arthritis. Right convex mid lumbar curvature measuring 16 degrees. Interbody fusion hardware lower lumbar spine. Electronically signed: Hugo Lynn. Transcribed by: [email or web address], User Resident: Electronically Signed by: HUGO LYNN @ 02/26/2022 11:07 AM Normal [facility] Comment on above: Order Comment: Views (X-RAY, SCOLIOSIS): PA, Lateral evaluate CT LUMBAR SPINE W CONTRASTon 01-24-2022 CT LUMBAR SPINE W CONTRAST [facility] Department of Radiology [address] [place] [phone] ===== Patient Name: DIANA CHAMPION : 1955 Sex: F Age: Race: White Pt. Location: Patient Status: D Ordered Date: 01/09/2022 9:00:00 AM Completed Date: 01/24/2022 03:26 PM Requesting Provider: JOO LINN Attending Provider: JOO LINN Report Copy To: UNKNOWN, PHYSICIAN Signs & Symptoms: M54.16 Radiculopathy, lumbar region I10 History: Eustace Comments: , CT MYELOGRAM>PAPER WORK IN CHART Exam: CT LUMBAR SPINE W CONTRAST ===== CT LUMBAR SPINE W CONTRAST 01/24/2022 3:26 [...] L1-2. Electronically signed: Gaurang Hess. Transcribed by: [email or web address], User Resident: Electronically Signed by: GAURANG HESS @ 01/26/2022 08:58 AM Normal [facility] Comment on above: Order Comment: , CT MYELOGRAM>PAPER WORK IN CHART LUMBAR MYELOGRAMon 2 LUMBAR MYELOGRAM [facility] Department of Radiology [address] [place] [id number] ===== Patient Name: DIANA CHAMPION : 1955 Sex: F Age: Race: White Pt. Location: Patient Status: O Ordered Date: 01/09/2022 9:00:00 AM Completed Date: 01/24/2022 02:37 PM Requesting Provider: JOO LINN Attending Provider: JOO LINN Report Copy To: UNKNOWN, PHYSICIAN Signs & Symptoms: M54.16 Radiculopathy, lumbar region I10 History: Eustace Is patient on thinners? 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 Consent was obtained. Timeout: [place] protocol timeout verification performed. PROCEDURE: Estimated blood [...] report. Electronically signed: Greg Mcmahan. Transcribed by: [email or web address], User Resident: DEBBIE JI Electronically Signed by: GREG MCMAHAN @ 01/24/2022 04:07 PM I personally read this/these film(s) with this resident Normal [facility] Comment on above: Order Comment: , CT MYELOGRAM> PAPER WORK SCANNED IN CHART , CT MYELOGRAM> PAPER WORK SCANNED IN CHART , , , Ordering Provider - JOO LINN MD , HIP LEFT 1 OR 2 VWS WITH PEL VISon 01-06-2022 HIP LEFT 1 OR 2 VWS WITH PELVIS [facility] Department of Radiology [address] [place] [phone] ===== Patient Name: DIANA CHAMPION : 1955 Sex: F Age: Race: White Pt. Location: Patient Status: D Ordered Date: 12/21/2021 10:45:00 AM Completed Date: 01/06/2022 01:24 PM Requesting Provider: JOO LINN Attending Provider: JOO LINN Report Copy To: Signs & Symptoms: Z96.642 Presence of left artificial hip joint I10 History: Jessica Comments: Evaluate Exam: HIP LEFT 1 OR 2 VWS WITH PELVIS ===== HIP LEFT 1 OR 2 VWS WITH PELVIS HISTORY: Hip replacement, follow-up. COMPARISON: None. IMPRESSION: 1. Redemonstrated left hip prosthesis without visible complication. 2. Advanced right hip arthritis without significant change with advanced joint space narrowing. Unchanged lumbosacral fusion hardware. Electronically signed: Joe Matthew. Transcribed by: [email or web address], User Resident: Electronically Signed by: JOE MATTHEW @ 01/09/2022 04:45 PM Normal [facility] Comment on above: Order Comment: Evalu ate Vital Signs Date Time Vital Sign Value Performing Clinician Facility 07-17-2025 09:08-0400 Body height 162.56 cm Iada Reese [employer] Work Phone: [facility] 07-17-2025 09:08-0400 Body mass index (BMI) [Ratio] 40.1 kg/m2 Aida Reese [employer] SU[employer] ENGINEER[employer]C Work Phone: [facility] 07-17-2025 09:08-0400 Body temperature 98.1 [degF] Aida Reese [employer] SUPPORT ENGINEER-C Work Phone: [facility] 07-17-2025 09:08-0400 Body weight 106.25 kg Aida Reese [employer] SUPPORT ENGINEER-C Work Phone: [facility] 07-17-2025 09:08-0400 Diastolic blood pressure 78 mm[Hg] Aida Reese [employer] SUPPORT ENGINEER-C Work Phone: [facility] 07-17-2025 09:08-0400 Heart rate 74 /min Aida Reese [employer] SUPPORT ENGINEER-C Work Phone: [facility] 07-17-2025 09:08-0400 Inhaled oxygen flow rate 3 L/min Aida Reese [employer] SUPPORT ENGINEER-C Work Phone: [facility] 07-17-2025 09:08-0400 Respiratory rate 24 /min Aida Reese [employer] SUPPORT ENGINEER-C Work Phone: [facility] 07-17-2025 09:08-0400 SaO2% (BldA) [Mass fraction] 95 % Aida Negronk [employer] SUPPORT ENGINEER-C Work Phone: [facility] 07-17-2025 09:08-0400 Systolic blood pressure 150 mm[Hg] Aida Negronk [employer]UX SUPPORT ENGINEER-C Work Phone: [facility] 05-19-2025 08:43-0400 Body mass index (BMI) [Ratio] 40.58 kg/m2 Kayleneian Streeterholz [employer]UX SUPPORT ENGINEER Work Phone: [facility] 05-19-2025 08:43-0400 Body temperature 98.49 [degF] Kaylene Ferdinandholz LINUX SUPPORT ENGINEER Work Phone: [facility] 05-19-2025 08:43-0400 Body weight 107.23 kg Kayleneian Streeterholz [employer] SUPPORT ENGINEER Work Phone: [facility] 05-19-2025 08:43-0400 Diastolic blood pressure 76 mm[Hg] Kaylene Ferdinandholz [employer]UX SUPPORT ENGINEER Work Phone: [facility] 05-19-2025 08:43-0400 Heart rate 74 /min Kaylene Ferdinandholz LINUX SUPPORT ENGINEER Work Phone: [facility] 05-19-2025 08:43-0400 Respiratory rate 22 /min Kaylene Ferdinandholz LINUX SUPPORT ENGINEER Work Phone: [facility] 05-19-2025 08:43-0400 SaO2% (BldA) [Mass fraction] 94 % Kaylene Ferdinandholz [employer]UX SUPPORT ENGINEER Work Phone: [facility] 05-19-2025 08:43-0400 Systolic blood pressure 118 mm[Hg] Kaylene Aicdimitryholz LINUX SUPPORT ENGINEER Work Phone: [facility] 04-09-2025 11:03-0400 Body mass index (BMI) [Ratio] 41.2 kg/m2 Kaylene Brianhholz [employer] SUPPORT ENGINEER Work Phone: [facility] 04-09-2025 11:03-0400 Body temperature 98.2 [degF] Kaylene Aichholz [employer]UX SUPPORT ENGINEER Work Phone: [facility] 04-09-2025 11:03-0400 Body weight 108.86 kg Kaylene Aichholz LINUX SUPPORT ENGINEER Work Phone: [facility] 04-09-2025 11:03-0400 Diastolic blood pressure 70 mm[Hg] Kaylene Aichholz [employer] SUPPORT ENGINEER Work Phone: [facility] 04-09-2025 11:03-0400 Heart rate 73 /min Kaylene Aichholz [employer] SUPPORT ENGINEER Work Phone: [facility] 04-09-2025 11:03-0400 Respiratory rate 22 /min Kaylene Aichholz LINUX SUPPORT ENGINEER Work Phone: [facility] 04-09-2025 11:03-0400 SaO2% (BldA) [Mass fraction] 93 % Kaylene Aichholz LINUX SUPPORT ENGINEER Work Phone: [facility] 04-09-2025 11:03-0400 Systolic blood pressure 122 mm[Hg] Kaylene Aichholz LINUX SUPPORT ENGINEER Work Phone: [facility] 03-24-2025 09:57-0400 Body temperature 98.06 [degF] MAG JOSE ALEJANDRO [facility] 03-24-2025 09:57-0400 Diastolic blood pressure 76 mm[Hg] MAG JOSE ALEJANDRO [facility] 03-24-2025 09:57-0400 Respiratory rate 16 /min MAG JOSE ALEJANDRO [facility] 03-24-2025 09:57-0400 Systolic blood pressure 128 mm[Hg] MAG JOSE ALEJANDRO [facility] 02-17-2025 08:31-0400 Body temperature 98.8 [degF] Kaylene Aichholz LINUX SUPPORT ENGINEER Work Phone: [facility] 02-17-2025 08:31-0400 Diastolic blood pressure 72 mm[Hg] Kaylene Aichholz LINUX SUPPORT ENGINEER Work Phone: [facility] 02-17-2025 08:31-0400 Heart rate 85 /min Kaylene Aichholz LINUX SUPPORT ENGINEER Work Phone: [facility] 02-17-2025 08:31-0400 Respiratory rate 24 /min Kaylene Aichholz LINUX SUPPORT ENGINEER Work Phone: [facility] 02-17-2025 08:31-0400 SaO2% (BldA) [Mass fraction] 90 % Kaylene Aichholz LINUX SUPPORT ENGINEER Work Phone: [facility] 02-17-2025 08:31-0400 Systolic blood pressure 118 mm[Hg] Kaylene Aichholz LINUX SUPPORT ENGINEER Work Phone: [facility] 01-16-2025 09:50-0400 Body temperature 99 [degF] Kaylene Aichholz LINUX SUPPORT ENGINEER Work Phone: [facility] 01-16-2025 09:50-0400 Diastolic blood pressure 80 mm[Hg] Kaylene Aichholz LINUX SUPPORT ENGINEER Work Phone: [facility] 01-16-2025 09:50-0400 Heart rate 68 /min Kaylene Aichholz LINUX SUPPORT ENGINEER Work Phone: [facility] 01-16-2025 09:50-0400 Respiratory rate 26 /min Kaylene Aichholz LINUX SUPPORT ENGINEER Work Phone: [facility] 01-16-2025 09:50-0400 SaO2% (BldA) [Mass fraction] 93 % Kaylene Aichholz LINUX SUPPORT ENGINEER Work Phone: [facility] 01-16-2025 09:50-0400 Systolic blood pressure 108 mm[Hg] Kaylene Aichholz LINUX SUPPORT ENGINEER Work Phone: [facility] 01-02-2025 14:54-0500 Body mass index (BMI) [Ratio] 40.2 kg/m2 Kaylene López [employer] SUPPORT ENGINEER Work Phone: [facility] 01-02-2025 14:54-0500 Body temperature 99.61 [degF] Kaylene López LINUX SUPPORT ENGINEER Work Phone: [facility] 01-02-2025 14:54-0500 Body weight 106.23 kg Kaylene López LINUX SUPPORT ENGINEER Work Phone: [facility] 01-02-2025 14:54-0500 Diastolic blood pressure 84 mm[Hg] Kaylene Weaverz LINUX SUPPORT ENGINEER Work Phone: [facility] 01-02-2025 14:54-0500 Heart rate 78 /min Kaylene López LINUX SUPPORT ENGINEER Work Phone: [facility] 01-02-2025 14:54-0500 Respiratory rate 26 /min Kaylene López LINUX SUPPORT ENGINEER Work Phone: [facility] 01-02-2025 14:54-0500 SaO2% (BldA) [Mass fraction] 91 % Kaylene López LINUX SUPPORT ENGINEER Work Phone: [facility] 01-02-2025 14:54-0500 Systolic blood pressure 120 mm[Hg] Kaylene López LINUX SUPPORT ENGINEER Work Phone: [facility] 11-28-2024 13:08-0500 Body height 162.6 cm Aida Reese LINUX SUPPORT ENGINEER Work Phone: [facility] 11-28-2024 13:08-0500 Body mass index (BMI) [Ratio] 40.51 kg/m2 Aida Reese [employer] SUPPORT ENGINEER Work Phone: [facility] 11-28-2024 13:08-0500 Body temperature 97.9 [degF] Aida Reese LINUX SUPPORT ENGINEER Work Phone: [facility] 11-28-2024 13:08-0500 Body weight 107.05 kg Aida Reese LINUX SUPPORT ENGINEER Work Phone: [facility] 11-28-2024 13:08-0500 Diastolic blood pressure 82 mm[Hg] Aida Reese LINUX SUPPORT ENGINEER Work Phone: [facility] 11-28-2024 13:08-0500 Heart rate 79 /min Aida Reese LINUX SUPPORT ENGINEER Work Phone: [facility] 11-28-2024 13:08-0500 Respiratory rate 20 /min Aida Reese LINUX SUPPORT ENGINEER Work Phone: [facility] 11-28-2024 13:08-0500 SaO2% (BldA) [Mass fraction] 96 % Aida Reese LINUX SUPPORT ENGINEER Work Phone: [facility] 11-28-2024 13:08-0500 Systolic blood pressure 148 mm[Hg] Aida Reese LINUX SUPPORT ENGINEER Work Phone: [facility] 11-12-2024 10:24-0500 Body mass index (BMI) [Ratio] 40.75 kg/m2 Aida Reese LINUX SUPPORT ENGINEER Work Phone: [facility] 11-12-2024 10:24-0500 Body temperature 98.71 [degF] Aida Reese LINUX SUPPORT ENGINEER Work Phone: [facility] 11-12-2024 10:24-0500 Body weight 107.68 kg Aida Reese LINUX SUPPORT ENGINEER Work Phone: [facility] 11-12-2024 10:24-0500 Diastolic blood pressure 78 mm[Hg] Aida Reese LINUX SUPPORT ENGINEER Work Phone: [facility] 11-12-2024 10:24-0500 Heart rate 68 /min Aida Reese LINUX SUPPORT ENGINEER Work Phone: [facility] 11-12-2024 10:24-0500 Respiratory rate 18 /min Aida Reese LINUX SUPPORT ENGINEER Work Phone: [facility] 11-12-2024 10:24-0500 SaO2% (BldA) [Mass fraction] 92 % Aida Brannonzpatrick LINUX SUPPORT ENGINEER Work Phone: [facility] 11-12-2024 10:24-0500 Systolic blood pressure 134 mm[Hg] Aida Reese LINUX SUPPORT ENGINEER Work Phone: [facility] 10-15-2024 14:29-0500 Blood Pressure Location MAGMARIE BLOUNT [facility] 10-15-2024 14:29-0500 Diastolic blood pressure 75 mm[Hg] MAG JOSE ALEJANDRO [facility] 10-15-2024 14:29-0500 Heart rate 64 /min MAG JOSE ALEJANDRO [facility] 10-15-2024 14:29-0500 Respiratory rate 20 /min MAG JOSE ALEJANDRO [facility] 10-15-2024 14:29-0500 Systolic blood pressure 147 mm[Hg] MAG JOSE ALEJANDRO [facility] 10-07-2024 14:22-0500 Body height 162.6 cm Aida Brannonzpatrick LINUX SUPPORT ENGINEER Work Phone: [facility] 10-07-2024 14:22-0500 Body mass index (BMI) [Ratio] 40.85 kg/m2 Aida Reese LINUX SUPPORT ENGINEER Work Phone: [facility] 10-07-2024 14:22-0500 Body weight 107.96 kg Aida Reese LINUX SUPPORT ENGINEER Work Phone: [facility] 10-07-2024 14:22-0500 Diastolic blood pressure 72 mm[Hg] Aida Reese LINUX SUPPORT ENGINEER Work Phone: [facility] 10-07-2024 14:22-0500 Heart rate 64 /min Aida Reese LINUX SUPPORT ENGINEER Work Phone: [facility] 10-07-2024 14:22-0500 Respiratory rate 18 /min Aida Reese LINUX SUPPORT ENGINEER Work Phone: [facility] 10-07-2024 14:22-0500 SaO2% (BldA) [Mass fraction] 93 % Aida Reese LINUX SUPPORT ENGINEER Work Phone: [facility] 10-07-2024 14:22-0500 Systolic blood pressure 110 mm[Hg] Aida Reese LINUX SUPPORT ENGINEER Work Phone: [facility] 09-05-2024 12:53-0400 Body height 162.56 cm Aida Reese LINUX SUPPORT ENGINEER-C Work Phone: [facility] 09-05-2024 12:53-0400 Body weight 104.32 kg Aida Reese [employer] SUPPORT ENGINEER-C Work Phone: [facility] 08-19-2024 11:41-0400 Body mass index (BMI) [Ratio] 40.34 kg/m2 Aida Reese LINUX SUPPORT ENGINEER Work Phone: [facility] 08-19-2024 11:41-0400 Body temperature 97.59 [degF] Aida Reese LINUX SUPPORT ENGINEER Work Phone: [facility] 08-19-2024 11:41-0400 Body weight 106.59 kg Aida Reese LINUX SUPPORT ENGINEER Work Phone: [facility] 08-19-2024 11:41-0400 Diastolic blood pressure 76 mm[Hg] Aida Reese LINUX SUPPORT ENGINEER Work Phone: [facility] 08-19-2024 11:41-0400 Heart rate 57 /min Aida Reese LINUX SUPPORT ENGINEER Work Phone: [facility] 08-19-2024 11:41-0400 SaO2% (BldA) [Mass fraction] 90 % Aida Hartpatrick LINUX SUPPORT ENGINEER Work Phone: [facility] 08-19-2024 11:41-0400 Systolic blood pressure 138 mm[Hg] Aida Reese LINUX SUPPORT ENGINEER Work Phone: [facility] 07-11-2024 08:25-0400 Body height 162.6 cm Aida Reese LINUX SUPPORT ENGINEER Work Phone: [facility] 07-11-2024 08:25-0400 Body mass index (BMI) [Ratio] 41.02 kg/m2 Aida Erese [employer]UX SUPPORT ENGINEER Work Phone: [facility] 07-11-2024 08:25-0400 Body temperature 98.1 [degF] Aida Reese LINUX SUPPORT ENGINEER Work Phone: [facility] 07-11-2024 08:25-0400 Body weight 108.41 kg Aida Reese LINUX SUPPORT ENGINEER Work Phone: [facility] 07-11-2024 08:25-0400 Diastolic blood pressure 74 mm[Hg] Aida Reese LINUX SUPPORT ENGINEER Work Phone: [facility] 07-11-2024 08:25-0400 Heart rate 83 /min Aida Reese LINUX SUPPORT ENGINEER Work Phone: [facility] Comment on above: 94% O2 07-11-2024 08:25-0400 Systolic blood pressure 130 mm[Hg] Aida Reese LINUX SUPPORT ENGINEER Work Phone: [facility] 03-14-2024 10:30-0400 Body height 165.1 cm Steph Collier Work Phone: [facility] 03-14-2024 10:30-0400 Body mass index (BMI) [Ratio] 39 kg/m2 Steph Collier Work Phone: [facility] 03-14-2024 10:30-0400 Body temperature 97.4 [degF] Steph Collier Work Phone: [facility] 03-14-2024 10:30-0400 Body weight 106.36 kg Steph Collier Work Phone: [facility] 03-14-2024 10:30-0400 Diastolic blood pressure 80 mm[Hg] Steph Collier Work Phone: [facility] 03-14-2024 10:30-0400 Heart rate 77 /min Steph Collier Work Phone: [facility] 03-14-2024 10:30-0400 Inhaled oxygen flow rate 3 L/min Steph Collier Work Phone: [facility] 03-14-2024 10:30-0400 Respiratory rate 20 /min Steph Collier Work Phone: [facility] 03-14-2024 10:30-0400 SaO2% (BldA) [Mass fraction] 92 % Steph Collier Work Phone: [facility] 03-14-2024 10:30-0400 Systolic blood pressure 120 mm[Hg] Steph Collier Work Phone: [facility] 08-17-2023 09:20-0400 Body height 165.1 cm Herberth Joana Other [employer] [facility] [employer] Other 08-17-2023 09:20-0400 Body mass index (BMI) [Ratio] 38.1 kg/m2 Herberth Joana Other [employer] Other 08-17-2023 09:20-0400 Body temperature 98.8 [degF] Herberth Joana Other [employer] Other 08-17-2023 09:20-0400 Body weight 103.87 kg Herberth Joana Other [employer] Other 08-17-2023 09:20-0400 Diastolic blood pressure 85 mm[Hg] Herberth Joana Other [employer] Other 08-17-2023 09:20-0400 Respiratory rate 18 /min Herberth Joana Other [employer] Other 08-17-2023 09:20-0400 SaO2% (BldA) [Mass fraction] 94 % Herberth Joana Other [employer] Other 08-17-2023 09:20-0400 Systolic blood pressure 151 mm[Hg] Herberth Joana Other [employer] Other 03-02-2023 10:00-0400 Body height 165.1 cm Herberth Joana Other [employer] Other 03-02-2023 10:00-0400 Body mass index (BMI) [Ratio] 37.29 kg/m2 Herberth Joana Other [employer] Other 03-02-2023 10:00-0400 Body temperature 98.9 [degF] Herberth Joana Other [employer] Other 03-02-2023 10:00-0400 Body weight 101.65 kg Herberth Joana Other [employer] Other 03-02-2023 10:00-0400 Diastolic blood pressure 76 mm[Hg] Herberth Joana Other [employer] Other 03-02-2023 10:00-0400 Respiratory rate 20 /min Herberth Joana Other [employer] Other 03-02-2023 10:00-0400 SaO2% (BldA) [Mass fraction] 96 % Herberth Joana Other [employer] Other 03-02-2023 10:00-0400 Systolic blood pressure 136 mm[Hg] Herberth Joana Other [employer] [facility] [employer] Other 12-08-2022 09:30-0500 Diastolic blood pressure 59 mm[Hg] MD Shaikh Ohara Work Phone: [facility] 12-08-2022 09:30-0500 Heart rate 55 /min MD Shaikh Ohara Work Phone: [facility] 12-08-2022 09:30-0500 Respiratory rate 16 /min MD Shaikh Ohara Work Phone: [facility] 12-08-2022 09:30-0500 SaO2% (BldA) [Mass fraction] 96 % MD Shaikh Ohara Work Phone: [facility] 12-08-2022 09:30-0500 Systolic blood pressure 112 mm[Hg] MD Shaikh Ohara Work Phone: [facility] 12-08-2022 06:54-0500 Body height 162.56 cm MD Shaikh Ohara Work Phone: [facility] 12-08-2022 06:54-0500 Body temperature 98.2 [degF] MD Shaikh Ohara Work Phone: [facility] 12-08-2022 06:54-0500 Body weight 104.32 kg MD Shaikh Ohara Work Phone: [facility] 08-09-2022 11:00-0400 Body height 165.1 cm Herberth Joana Other [employer] Other 08-09-2022 11:00-0400 Body mass index (BMI) [Ratio] 37.87 kg/m2 Herberth Joana Other [employer] Other 08-09-2022 11:00-0400 Body temperature 97.2 [degF] Herberth Joana Other [employer] Other 08-09-2022 11:00-0400 Body weight 103.24 kg Herberth Joana Other [employer] Other 08-09-2022 11:00-0400 Diastolic blood pressure 88 mm[Hg] Herberth Joana Other [employer] Other 08-09-2022 11:00-0400 Respiratory rate 20 /min Herberth Joana Other [employer] Other 08-09-2022 11:00-0400 SaO2% (BldA) [Mass fraction] 95 % Herberth Joana Other [employer] Other 08-09-2022 11:00-0400 Systolic blood pressure 133 mm[Hg] Herberth Joana Other [employer] Other 11-17-2021 10:40-0500 Body height 165.1 cm Herberth Joana Other [employer] Other 11-17-2021 10:40-0500 Body mass index (BMI) [Ratio] 37.97 kg/m2 Herberth Joana Other [employer] Other 11-17-2021 10:40-0500 Body temperature 97.8 [degF] Herberth Joana Other [employer] Other 11-17-2021 10:40-0500 Body weight 103.51 kg Herberth Joana Other [employer] Other 11-17-2021 10:40-0500 Diastolic blood pressure 70 mm[Hg] Herberth Joana Other [employer] Other 11-17-2021 10:40-0500 Respiratory rate 18 /min Herberth Joana Other [employer] Other 11-17-2021 10:40-0500 SaO2% (BldA) [Mass fraction] 94 % Herberth Joana Other [employer] Other 11-17-2021 10:40-0500 Systolic blood pressure 130 mm[Hg] Herberth Joana Other [employer] Other 08-30-2021 13:15-0400 Body height 165.1 cm Rena Ginty Other [employer] Other 08-30-2021 13:15-0400 Body mass index (BMI) [Ratio] 36.61 kg/m2 Rena Ginty Other [employer] Other 08-30-2021 13:15-0400 Body temperature 98.7 [degF] Rena Ginty Other [employer] Other 08-30-2021 13:15-0400 Body weight 99.79 kg Rena Hurd Other [employer] Other 08-30-2021 13:15-0400 SaO2% (BldA) [Mass fraction] 90 % Rena Hurd Other [employer] Other Encounters Encounter Date Encounter Type Care Provider Facility Start: 07-17-2025 End: 07-17-2025 ambulatory Aida Reese LINUX SUPPORT ENGINEER-C Work Phone: [facility] Work Phone: Start: 07-17-2025 End: 07-17-2025 Patient encounter procedure Kaylene López LINUX SUPPORT ENGINEER-C -[facility] Work Phone: Start: 07-17-2025 Patient encounter procedure Aida Reese LINUX SUPPORT ENGINEER-C Work Phone: [facility] Start: 07-16-2025 End: 07-16-2025 Office outpatient visit 15 minutes Jessica Lazo MD Work Phone: [facility] Comment on above: Seborrheic keratosis (Primary Dx); Lentigines; History of SCC (squamous cell carcinoma) of skin Start: 07-16-2025 End: 07-16-2025 Bamjagruti flowsheet Jessica Lazo MD Work Phone: [facility] Start: 07-16-2025 End: 07-16-2025 Bamboo flowsheet Jessica Lazo MD Work Phone: [facility] Start: 07-09-2025 Non-patient / Non-visit Nicolas pelayo DO -[employer] Work Phone: Start: 07-08-2025 End: 07-08-2025 ambulatory Amalia Stephens Facility: [facility] Start: 07-08-2025 End: 07-08-2025 Patient encounter procedure Amalia Stephens [facility] Start: 06-18-2025 End: 06-18-2025 Refill Kaylene Rene LINUX SUPPORT ENGINEER Work Phone: [facility] Comment on above: Moderate episode of recurrent major depressive disorder (HCC) Start: 06-11-2025 End: 06-11-2025 ambulatory Amalia Stephens Facility:[facility] Start: 06-11-2025 End: 06-11-2025 Patient encounter procedure Amalia Kat [facility] Start: 06-04-2025 End: 06-05-2025 Refill Kaylene Rene LINUX SUPPORT ENGINEER Work Phone: [facility] Comment on above: Skin pustule Start: 05-19-2025 End: 05-19-2025 Bamboo flowsheet Kaylene Rene LINUX SUPPORT ENGINEER Work Phone: [facility] Start: 05-19-2025 End: 05-19-2025 Bamboo flowsheet Kaylene Aichsuryz LINUX SUPPORT ENGINEER Work Phone: [facility] Start: 05-19-2025 End: 05-19-2025 Telephone encounter Kaylene López LINUX SUPPORT ENGINEER Work Phone: [facility] Start: 05-19-2025 End: 05-19-2025 Office outpatient visit 25 minutes Kaylene Rene LINUX SUPPORT ENGINEER Work Phone: [facility] Comment on above: Moderate episode of recurrent major depressive disorder (HCC) (Primary Dx); Morbid (severe) obesity due to excess calories (CMS-HCC); Candidiasis of breast; Skin pustule; RLS (restless legs syndrome) Start: 05-19-2025 End: 05-19-2025 ambulatory KAYLENE AICHHOLZ Not Available Start: 05-12-2025 End: 05-12-2025 Refill Kaylene Aichholz LINUX SUPPORT ENGINEER Work Phone: [facility] Comment on above: Chronic heart failur e with preserved ejection fraction (HCC) (Primary Dx); Edema of both lower extremities Start: 05-12-2025 End: 05-12-2025 ambulatory Jayshree Vargas MD Facility:[facility] Start: 04-30-2025 End: 04-30-2025 Clinisync Result Encounter Generic External Data Provider [facility] External Department Unsolicited Start: 04-30-2025 End: 04-30-2025 Clinisync Result Encounter Generic External Data Provider [facility] External Department Unsolicited Start: 04-29-2025 End: 04-29-2025 Refill Kaylene Rene LINUX SUPPORT ENGINEER Work Phone: [facility] Comment on above: Restless leg syndrom e Start: 04-27-2025 End: 04-28-2025 Refill Kaylene Rene LINUX SUPPORT ENGINEER Work Phone: [facility] Comment on above: Chronic bilateral lo w back pain without sciatica Start: 04-23-2025 End: 04-23-2025 Refill Kaylene Rene LINUX SUPPORT ENGINEER Work Phone: [facility] Comment on above: Moderate episode of recurrent major depressive disorder (HCC) (Primary Dx) Start: 04-09-2025 End: 04-09-2025 Bamboo flowsheet Kaylene López LINUX SUPPORT ENGINEER Work Phone: [facility] Start: 04-09-2025 End: 04-09-2025 Bamboo flowsheet Kaylene Rene LINUX SUPPORT ENGINEER Work Phone: [facility] Start: 04-09-2025 End: 04-09-2025 Office outpatient visit 25 minutes Kaylene López LINUX SUPPORT ENGINEER Work Phone: [facility] Comment on above: Moderate episode of recurrent major depressive disorder (CMS/HCC) (Primary Dx); Pulmonary emphysema, unspecified emphysema type (CMS/HCC); Chronic respiratory failure with hypoxia (CMS/HCC); Morbid (severe) obesity due to excess calories (CMS/HCC); Restless leg syndrome Start: 04-09-2025 End: 04-09-2025 ambulatory KAYLENE LÓPEZ Not Available Start: 03-24-2025 End: 03-24-2025 ambulatory MAG GOMEZRY Facility:[facility] Start: 03-24-2025 End: 03-24-2025 Patient encounter procedure MAG BLOUNT [facility] Start: 03-10-2025 End: 03-12-2025 Clinisync Result Encounter Generic External Data Provider [facility] External Department Unsolicited Start: 03-10-2025 End: 03-12-2025 Clinisync Result Encounter Generic External Data Provider [facility] External Department Unsolicited Start: 03-03-2025 End: 03-03-2025 Clinisync Result Encounter Kaylene López LINUX SUPPORT ENGINEER Work Phone: [facility] Department Unsolicited Start: 03-03-2025 End: 03-03-2025 Clinisync Result Encounter Kaylene López LINUX SUPPORT ENGINEER Work Phone: [facility] Department Unsolicited Start: 02-26-2025 End: 02-26-2025 Refill Kaylene López LINUX SUPPORT ENGINEER Work Phone: [facility] Comment on above: Gastroesophageal ref lux disease without esophagitis Start: 02-17-2025 End: 02-17-2025 Bamboo flowsheet Kaylene López LINUX SUPPORT ENGINEER Work Phone: [facility] Start: 02-17-2025 End: 02-17-2025 Bamboo flowsheet Kaylene López LINUX SUPPORT ENGINEER Work Phone: [facility] Start: 02-17-2025 End: 02-17-2025 Office outpatient visit 25 minutes Kaylene López LINUX SUPPORT ENGINEER Work Phone: [facility] Comment on [...] Candidiasis Start: 02-17-2025 End: 02-17-2025 ambulatory KAYLENE PETERZ Not Available Start: 01-23-2025 End: 01-23-2025 ambulatory [facility] Start: 01-16-2025 End: 01-16-2025 Office outpatient visit 25 minutes Kaylene López LINUX SUPPORT ENGINEER Work Phone: [facility] Comment on above: Pneumonia [...] Start: 01-15-2025 End: 01-15-2025 Refill Kaylene López LINUX SUPPORT ENGINEER Work Phone: [facility] Comment on above: Pneumonia due to inf ectious organism, unspecified laterality, unspecified part of lung (Primary Dx) Start: 01-02-2025 End: 01-02-2025 Office outpatient visit 25 minutes Kaylene López LINUX SUPPORT ENGINEER Work Phone: [facility] Comment on above: Flu-like symptoms (P rimary Dx); Morbid (severe) obesity due to excess calories (CMS/HCC); Body mass index (BMI) 40.0-44.9, adult (CMS/HCC); Pulmonary emphysema, unspecified emphysema type (CMS/HCC); Chronic respiratory failure with hypoxia (CMS/HCC); Essential hypertension (CMS/HCC) Start: 01-02-2025 End: 01-02-2025 ambulatory KAYLENE LÓPEZ Not Available Start: 01-02-2025 End: 01-02-2025 Bamboo flowsheet Kaylene Rene LINUX SUPPORT ENGINEER Work Phone: [facility] Start: 01-02-2025 End: 01-04-2025 Bamboo flowsheet Kaylene Rene LINUX SUPPORT ENGINEER Work Phone: [facility] Start: 01-02-2025 End: 01-04-2025 Clinisync Result Encounter Generic External Data Provider [facility] External Department Unsolicited Start: 12-17-2024 End: 12-17-2024 Office outpatient visit 15 minutes Jessica Lazo MD Work Phone: [facility] Comment on above: Seborrheic keratosis (Primary Dx); History of SCC (squamous cell carcinoma) of skin; Lentigines Start: 12-17-2024 End: 12-17-2024 ambulatory JESSICA LAZO Not Available Start: 12-17-2024 End: 12-17-2024 Bamboo flowsheet Ramin Bowers PA Work Phone: [facility] Start: 12-17-2024 End: 12-17-2024 Bamboo flowsheet Ramin Bowers PA Work Phone: [facility] Start: 12-17-2024 End: 12-17-2024 ambulatory RAMIN BOWERS Not Available Start: 12-17-2024 End: 12-17-2024 Office outpatient visit 25 minutes Ramin KING Work Phone: [facility] Comment on above: Acute pain of right knee (Primary Dx); History of total right knee replacement; Right hip pain; Arthritis of right hip Start: 12-15-2024 End: 12-16-2024 Refill Aida Reese LINUX SUPPORT ENGINEER Work Phone: [facility] Comment on above: Moderate episode of recurrent major depressive disorder (CMS/HCC) Start: 12-13-2024 End: 12-13-2024 Bamboo flowsheet Jessica Lazo MD Work Phone: [facility] [...] Start: 12-05-2024 End: 12-09-2024 Refill Aida Reese LINUX SUPPORT ENGINEER Work Phone: [facility] Comment on above: Restless leg syndrom e Start: 11-30-2024 End: 12-02-2024 Refill Aida Reese LINUX SUPPORT ENGINEER Work Phone: [facility] Comment on above: Gastroesophageal ref lux disease without esophagitis Start: 11-28-2024 End: 11-28-2024 Bamboo flowsheet Aida Reese LINUX SUPPORT ENGINEER Work Phone: [facility] Start: 11-28-2024 End: 11-28-2024 Bamboo flowsheet Aida Reese LINUX SUPPORT ENGINEER Work Phone: [facility] Start: 11-28-2024 End: 11-28-2024 ambulatory AIDA REESE Not Available Start: 11-28-2024 End: 11-28-2024 Transitional care manage srvc 14 day discharge Aida Reese LINUX SUPPORT ENGINEER Work Phone: [facility] Comment on above: Pulmonary emphysema, unspecified emphysema type (CMS/HCC) (Primary Dx) Start: 11-12-2024 End: 11-12-2024 Bamboo flowsheet Aida Reese LINUX SUPPORT ENGINEER Work Phone: [facility] Start: 11-12-2024 End: 11-12-2024 Bamboo flowsheet Aida Vidaltrick LINUX SUPPORT ENGINEER Work Phone: [facility] Start: 11-12-2024 End: 11-12-2024 Office outpatient visit 15 minutes Aida Reese LINUX SUPPORT ENGINEER Work Phone: [facility] Comment on above: Chronic obstructive pulmonary disease with acute lower respiratory infection (CMS/HCC) (Primary Dx); Primary HSV infection of mouth Start: 11-12-2024 End: 11-12-2024 ambulatory AIDA REESE Not Available Start: 10-26-2024 End: 10-28-2024 Refill Aida Reese LINUX SUPPORT ENGINEER Work Phone: [facility] Comment on above: Moderate episode of recurrent major depressive disorder (CMS/HCC); Restless leg syndrome Start: 10-17-2024 End: 10-17-2024 ambulatory [facility] Start: 10-15-2024 End: 10-15-2024 ambulatory MAG BLOUNT [facility] Start: 10-15-2024 End: 10-15-2024 Lab Drop off MAG BLOUNT [facility] Start: 10-15-2024 End: 10-15-2024 Refill Aida Reese LINUX SUPPORT ENGINEER Work Phone: [facility] Comment on above: Moderate episode of recurrent major depressive disorder (CMS/HCC) Start: 10-15-2024 End: 10-15-2024 ambulatory MAG BLOUNT Facility:[facility] Start: 10-15-2024 End: 10-15-2024 Patient encounter procedure MAG BLOUNT [facility] Start: 10-12-2024 End: 10-14-2024 Refill Aida Reese LINUX SUPPORT ENGINEER Work Phone: [facility] Comment on above: Urge incontinence Start: 10-11-2024 End: 10-11-2024 Bamboo flowsheet Jayna Goode PA Work Phone: [facility] Start: 10-11-2024 End: 10-11-2024 Bamboo flowsheet Jay[facility] Work Phone: [facility] Start: 10-11-2024 End: 10-11-2024 Patient encounter procedure Jayna [facility] Work Phone: [facility] Comment on above: Neoplasm of unspecif ied behavior of bone, soft tissue, and skin (Primary Dx) Start: 10-11-2024 End: 10-11-2024 ambulatory [facility] Not Available Start: 10-08-2024 ambulatory [facility] Facility :[facility] Start: 10-07-2024 End: 10-07-2024 Office outpatient visit 15 minutes Aida Reese LINUX SUPPORT ENGINEER Work Phone: [facility] Comment on above: Urge incontinence (P rimary Dx); Morbid obesity with BMI of 40.0-44.9, adult (CMS/HCC); 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; Stage 3a chronic kidney disease (HCC) (CMS/HCC); Chronic respiratory failure with hypoxia ([facility]/HCC) Start: 10-07-2024 End: 10-07-2024 ambulatory AIDA REESE Not Available Start: 10-07-2024 End: 10-07-2024 Bamboo flowsheet Aida Reese LINUX SUPPORT ENGINEER Work Phone: [facility] Start: 10-07-2024 End: 10-07-2024 Bamboo flowsheet Aida Reese LINUX SUPPORT ENGINEER Work Phone: [facility] Start: 09-25-2024 End: 09-26-2024 Refill Aida Reese LINUX SUPPORT ENGINEER Work Phone: [facility] Comment on above: Restless leg syndrom e Start: 09-12-2024 End: 09-12-2024 ambulatory Aida Vidaltrick LINUX SUPPORT ENGINEER-C Work Phone: [facility] Work Phone: Start: 09-12-2024 End: 09-12-2024 Departed Referred Aida Vidaltrick LINUX SUPPORT ENGINEER-C Work Phone: [facility] [place] Start: 09-10-2024 End: 09-10-2024 Orders Only Aida Negronk LINUX SUPPORT ENGINEER Work Phone: [facility] Comment on above: Vaginal guero (Aleja joy Dx) Start: 09-05-2024 End: 09-05-2024 Departed Referred Aida Vidaltrick LINUX SUPPORT ENGINEER-C Work Phone: [facility] Work Phone: Start: 09-05-2024 End: 09-05-2024 Patient encounter procedure LINUX SUPPORT ENGINEER-C Aida Vidaltrick Work Phone: [facility] Work Phone: Start: 09-05-2024 End: 09-05-2024 ambulatory LINUX SUPPORT ENGINEER-C Aida Vidaltrick Work Phone: [facility] Work Phone: Start: 09-03-2024 End: 09-03-2024 Refill Rukhsana Rutherford MA [facility] Comment on above: Gastroesophageal ref lux disease without esophagitis Start: 08-19-2024 End: 08-19-2024 Bamboo flowsheet Aida Vidaltrick LINUX SUPPORT ENGINEER Work Phone: [facility] Start: 08-19-2024 End: 08-19-2024 Bamboo flowsheet Aida Vidaltrick LINUX SUPPORT ENGINEER Work Phone: [facility] Start: 08-19-2024 End: 08-19-2024 Transitional care manage srvc 7 day discharge Aida Reese LINUX SUPPORT ENGINEER Work Phone: [facility] Comment on [...] Start: 08-12-2024 End: 08-27-2024 Refill Aida Reese LINUX SUPPORT ENGINEER Work Phone: [facility] Comment on above: Restless leg syndrom e Start: 08-08-2024 End: 08-12-2024 Non-patient / Non-visit LINUX SUPPORT ENGINEER-C Aida Reese Work Phone: [facility] Work Phone: Start: 08-08-2024 End: 08-12-2024 Clinisync [...] End: 07-15-2024 ambulatory Jayshree Vargas MD Facility:[facility] Start: 07-12-2024 End: 07-12-2024 Clinisync Result Encounter Aida Vidaltrick LINUX SUPPORT ENGINEER Work Phone: [facility] Unsolicited Start: 07-12-2024 End: 07-12-2024 Clinisync Result Encounter Aida Reese LINUX SUPPORT ENGINEER Work Phone: [facility] External Department Unsolicited Start: 07-11-2024 End: 07-11-2024 Bamboo flowsheet Aida Reese LINUX SUPPORT ENGINEER Work Phone: [facility] Start: 07-11-2024 End: 07-11-2024 Bamboo flowsheet Aida Reese LINUX SUPPORT ENGINEER Work Phone: [facility] Start: 07-11-2024 End: 07-11-2024 ambulatory [facility] Start: 07-11-2024 End: 07-11-2024 Office outpatient visit 25 minutes Aida Vidaltrick LINUX SUPPORT ENGINEER Work Phone: [facility] Comment on above: Benign essential HTN (CMS/HCC) (Primary Dx); Chronic heart failure with preserved ejection fraction (CMS/HCC); Severe persistent asthma without complication (CMS/HCC); Moderate mixed hyperlipidemia not requiring statin therapy (CMS/HCC); Morbid obesity with BMI of 40.0-44.9, adult (CMS/HCC) Start: 07-11-2024 End: 07-11-2024 ambulatory AIDA REESE Not Available Start: 07-02-2024 End: 07-02-2024 ambulatory [facility] Start: 06-29-2024 Non-patient / Non-visit LINUX SUPPORT ENGINEER-C B chase Vidaltrick Work Phone: [facility] Work Phone: Start: 06-28-2024 End: 07-02-2024 Clinisync Result Encounter Generic External Data Provider [facility] External Department Unsolicited Start: 06-28-2024 End: 07-02-2024 Clinisync Result Encounter Generic External Data Provider [facility] External Department Unsolicited Start: 06-25-2024 ambulatory [facility] Start: 06-24-2024 End: 06-24-2024 ambulatory Jayshree Vargas MD Facility: [facility] Start: 06-21-2024 End: 06-21-2024 ambulatory [facility] Start: 06-12-2024 End: 06-12-2024 ambulatory AIDA REESE Not Available Start: 05-13-2024 End: 05-13-2024 ambulatory [facility] Start: 03-14-2024 End: 03-14-2024 ambulatory Steph Collier Work Phone: [facility] Work Phone: Start: 03-14-2024 End: 03-14-2024 Patient encounter procedure Steph Collier Work Phone: [facility] Physician [facility] Work Phone: Start: 03-06-2024 Non-patient / Non-visit Steph Collier Work Phone: [facility] Work Phone: Start: 11-06-2023 Patient encounter procedure Generic Provider [facility] Start: 09-07-2023 End: 09-07-2023 ambulatory Herberth Joana Other [facility] [employer] Other Start: 09-07-2023 Telephone encounter Herberth Joana [facility] Start: 08-28-2023 End: 08-28-2023 ambulatory Herberth Joana Other [facility] [employer] Other Start: 08-28-2023 Telephone encounter Herberth Joana [facility] Start: 08-17-2023 End: 08-17-2023 ambulatory Herberth Joana Other [employer] Other Start: 08-17-2023 Office outpatient vi sit 25 minutes Herberth Joana [facility] Start: 04-04-2023 End: 04-04-2023 ambulatory SHAIKH Dimitry OHARA Facility:[facility] Start: 03-24-2023 End: 03-25-[address] STEPH GRANADOS Facility:[facility] Start: 03-02-2023 End: 03-02-2023 ambulatory Herberth Joana Other [employer] Other Start: 03-02-2023 Office outpatient vi sit [...] 12-08-2022 ambulatory MD Shaikh Ohara Work Phone: [facility] Work Phone: Start: 11-11-2022 End: 11-11-[address] JACK HALL . Facility:[facility] Start: 11-09-2022 End: 11-09-2022 ambulatory Gilma Trent Other [facility] Other Start: 11-09-2022 Telephone encounter Gilma Jesseniajerilyns [facility] Start: 08-19-2022 End: 08-20-2022 ambulatory HERBERTH JOANA Facility:[facility] Start: 08-09-2022 End: 08-09-2022 ambulatory Herberth Joana Other [employer] Other Start: 08-09-2022 Office outpatient vi sit 10 minutes Herberth Joana [facility] Start: 08-09-2022 Telephone encounter Herberth Joana [facility] Start: 08-05-2022 Telephone encounter Herberth Joana [facility] Start: 08-05-2022 End: 08-06-2022 ambulatory HERBERTH JOANA [employer] Other Start: 07-08-2022 End: 07-08-2022 ambulatory Gato Domingo Other [facility] Other Start: 07-08-2022 Telephone encounter Gato Cesar [facility] Start: 07-05-2022 End: 07-06-2022 ambulatory MESSER H FAWWAD Facility:H1 Start: 06-08-2022 End: 06-09-2022 ambulatory MESSER H FAWWAD Facility:[facility]1 Start: 06-07-2022 End: 06-07-2022 ambulatory MESSER H FAWWAD Facility:[facility]1 Start: 01-24-2022 End: 01-25-2022 ambulatory PHYSICIAN UNKNOWN Facility:[facility] Start: 11-17-2021 End: 11-17-2021 ambulatory Herberth Joana Other [facility] Other Start: 11-17-2021 Office outpatient vi sit 15 minutes Herberth Joana [facility] Start: 08-30-2021 Office outpatient vi sit 15 minutes Rena Ginty [facility] Start: 09-11-2020 End: 09-11-2020 Chart abstracting Miguelito Buck Work Phone: Hematology/Oncology Start: 09-11-2020 End: 09-11-2020 Patient encounter procedure External Provider [facility] Start: 09-11-2020 Results Only External Provider Exter nal-[facility] Start: 09-30-2019 End: 09-30-2019 Patient encounter procedure [facility]-Ultrasound [facility] [place] Start: 07-07-2017 End: 07-07-2017 Admission to day surgery Steph [facility] Start: 05-24-2004 Evaluation and management of inpatient [facility] Ctr-3 [place] Start: 04-26-2004 Evaluation and management of inpatient [facility] C[facility] [place] Procedures Date Procedure Procedure Detail Performing Clinician Start: 04-30-2025 Radex hip unilateral with pelvis 2-3 views Generic External Data Provider Start: 03-10-2025 BLOOD CULTURE 2 Generic External Data Provider Start: 03-10-2025 BLOOD CULTURE 1 Generic External Data Provider Start: 03-03-2025 End: 03-03-2025 Screening mammography bi 2-view breast inc cad Kaylene López [employer]UX SUPPORT ENGINEER Work Phone: Start: 01-02-2025 BLOOD CULTURE 1 Generic External Data Provider Start: 01-02-2025 STATUS COVID-19/FLU Elba López LINUX SUPPORT ENGINEER Work Phone: Start: 12-17-2024 End: 12-17-2024 Radex [...] ALL CBC WITH AUTO DIFF Aida Reese LINUX SUPPORT ENGINEER Work Phone: Start: 06-28-2024 BLOOD CULTURE 2 Generic External Data Provider Start: 06-28-2024 BLOOD CULTURE 1 Generic External Data Provider Start: 02-29-2024 Mammography Generic Pr ovider Start: 12-08-2022 End: 12-08-2022 Colonoscopy MD Shaikh Ohara Work Phone: Start: 09-11-2020 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 Real Estate Closing Coordinator al Provider Start: 09-11-2020 EXTERNAL LAB External P rovider Start: 09-11-2020 EXTERNAL PROCEDURE Exte rnal Provider Start: 09-30-2019 Ultrasonography of b ilateral kidneys Steph Roshon Arthroplasty of knee MARIO BLOUNT Colonoscopy MAG JOSE ALEJANDRO Extraction of cataract ESTHER BLAINE BLOUNT Insertion of hip prosthesis MAG JOSE ALEJANDRO Ligation of fallopian tube J AILEENBLAINE JOSE ALEJANDRO Plan of Treatment Date Care Activity Detail Author Start: 12-08-2032 Screening for malignant neoplasm of colon [facility] Start: 12-15-2026 End: 12-15-2026 Patient encounter procedure [facility] Start: 07-16-2026 End: 07-16-2026 Patient encounter procedure 07/16/2026 8:45 AM EDT Office Visit [facility] [address] [place] [address] Jessica Lazo MD [address] [place], [place] [phone] [facility] Start: 04-09-2026 Urine screening for protein Diabetes: Urine Protein Screening [facility] Comment on above: Postponed from 1975 (Other Medical Reasons) Start: 03-03-2026 Screening for malignant neoplasm of breast Mammogram [facility] Start: 07-17-2025 Patient referral [facility] Work Phone: Start: 07-17-2025 End: 07-17-2025 Patient encounter procedure 07/17/2025 9:00 AM EDT [facility] [address] [place] [address] Kaylene López NP [address] [place] [address] [facility] Start: 07-16-2025 End: 07-16-2025 Patient encounter procedure 07/16/2025 2:45 PM EDT Office Visit [facility] [address] [place] [address] Jessica Lazo MD [address] [place], [place] [phone] [facility] Start: 07-07-2025 Influenza vaccination Influenza Vaccine (#1) [facility] Start: 06-17-2025 End: 06-17-2025 Patient encounter procedure [facility] Start: 05-19-2025 End: 05-19-2025 Patient encounter procedure [facility] Comment on above: Moderate episode of recurrent major depr essive disorder (HCC) (Primary Dx); Morbid (severe) obesity due to excess calories (CMS-HCC) Start: 04-09-2025 End: 04-09-2025 Patient encounter procedure 04/09/2025 11:00 AM EDT Office Visit [facility] [address] [place] [address] Kaylene López NP [address] [place] [phone] Pulmonary emphysema, unspecified emphysema type (CMS/HCC) (Primary Dx); Chronic respiratory failure with hypoxia (CMS/HCC); Morbid (severe) obesity due to excess calories (CMS/HCC) [facility] Comment on above: Pulmonary emphysema, unspecified emphyse ma type (CMS/HCC) (Primary Dx); Chronic respiratory failure with hypoxia (CMS/HCC); Morbid (severe) obesity due to excess calories (CMS/HCC) Start: 03-26-2025 End: 03-26-2025 Patient encounter procedure 03/26/2025 11:30 AM EDT Office Visit [facility] [address] [place] [address] Kaylene López NP [address] [place] [address] [facility] Start: 02-28-2025 Screening for malignant neoplasm of breast Mammogram [facility] Start: 02-17-2025 End: 02-17-2025 Patient encounter procedure [facility] Comment on above: Spinal stenosis, lumbar region [...] breast cancer Expected: 02/16/2025 (Approximate), Expires: 03/18/2026 [facility] Work Phone: Comment on above: Expected: 02/16/2025 (Approximate), Expi res: 03/18/2026 Start: 01-16-2025 End: 01-16-2025 Patient encounter procedure 01/16/2025 10:00 AM EDT Office Visit [facility] [address] [place] [address] Kaylene López, RIKKI [address] [place] [phone] [facility] Start: 01-09-2025 End: 01-09-2025 Patient encounter procedure 01/09/2025 1:40 PM EST Office Visit [facility] [address] [place] [address] Kaylene López, RIKKI [address] [place] [phone] [facility] Start: 01-09-2025 End: 01-09-2025 Patient encounter procedure 01/09/2025 8:30 AM EST Office Visit [facility] [address] [place] [address] Aida Reese NP [address] [place] [address] [facility] Start: 01-02-2025 End: 01-02-2025 Patient encounter procedure 01/02/2025 2:40 PM EST Office Visit [facility] [address] [place] [address] Kaylene López, LINUX SUPPORT ENGINEER [address] [place] [phone] Pulmonary emphysema, unspecified emphysema type (CMS/HCC) (Primary Dx); Chronic kidney disease, stage 3a (HCC) (CMS/HCC); Severe persistent asthma, uncomplicated (CMS/HCC); Morbid (severe) obesity due to excess calories (CMS/HCC); Body mass index (BMI) 40.0-44.9, adult (CMS/HCC); Chronic respiratory failure with hypoxia (CMS/HCC); Essential hypertension (CMS/HCC); Gastroesophageal reflux disease, unspecified whether esophagitis present; Malignant neoplasm of rectosigmoid junction (CMS/HCC); Urge incontinence [facility] Comment on above: Pulmonary emphysema, unspecified emphyse [...] 12/09/2024 2:30 PM EST [facility] [address] [place] [address] Aida Reese NP [address] [place] [address] [facility] Start: 11-20-2024 End: 11-20-2024 Patient encounter procedure [facility] Start: 11-15-2024 End: 11-15-2024 Patient encounter procedure 11/15/2024 10:30 AM EST [facility] [address] [place] [address] Jayna Goode PA [address] [place] [phone] [facility] Start: 11-12-2024 End: 11-12-2025 XR Chest 2 Views XR chest 2 views Imaging Routine Chronic obstructive pulmonary disease with acute lower respiratory infection (CMS/HCC) Expected: 11/12/2024, Expires: 11/12/2025 [facility] Work Phone: Comment on above: Expected: 11/12/2024, Expires: Start: 11-12-2024 End: 11-12-2024 Patient encounter procedure 11/12/2024 10:30 AM EST Office Visit [facility] [address] [place] [phone] Aida Reese NP [address] [place] [phone] Arrived [facility] Comment on above: Arrived Start: 10-11-2024 End: 10-11-2024 Patient encounter procedure 10/11/2024 8:50 AM EST Office Visit [facility] [address] [place] [phone] Jayna Goode PA [address] [place] [phone] 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 [facility] Comment on above: 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 Start: 10-09-2024 End: 10-09-2024 Patient encounter procedure 10/09/2024 9:00 AM EST Office Visit [facility] [address] [place] [phone] Aida Reese, RIKKI [address] [place] [phone] [facility] Start: 10-07-2024 End: 10-07-2024 Patient encounter procedure 10/07/2024 2:30 PM EST [facility] [address] [place] [address] Aida Reese NP [address] [place] [address] Arrived [facility] Comment on above: Arrived Start: 09-12-2024 Phacoemulsification of cataract with intraocular lens implantation OR Cataract PHACO W/IOL/Vitrectomy (Left) [facility] Start: 08-19-2024 End: 08-19-2025 Clostridioides difficile toxin A+B tcdA+tcdB genes [Presence] in Stool by KAYLEE with probe detection Clostridium difficile,EIA Microbiology Routine Diarrhea, unspecified type Expected: 08/19/2024 (Approximate), Expires: 08/19/2025 [facility] Work Phone: Comment on above: Expected: 08/19/2024 (Approximate), Expi res: 08/19/2025 Start: 08-19-2024 End: 08-19-2024 Patient encounter procedure [facility] Comment on above: Arrived Start: 07-11-2024 End: 07-11-2025 CBC W Auto Differential panel - Blood CBC and differential Lab Routine Benign essential HTN (CMS/HCC) Chronic heart failure with preserved ejection fraction (CMS/HCC) Moderate mixed hyperlipidemia not requiring statin therapy (CMS/HCC) Morbid obesity with BMI of 40.0-44.9, adult (CMS/HCC) Expected: 07/11/2024 (Approximate), Expires: 07/11/2025 [facility] Comment on above: Expected: 07/11/2024 (Approximate), Expi res: 07/11/2025 Start: 07-11-2024 End: 07-11-2025 Comprehensive metabolic 2000 panel - Serum or Plasma Comprehensive metabolic panel Lab Routine Benign essential HTN (CMS/HCC) Chronic heart failure with preserved ejection fraction (CMS/HCC) Moderate mixed hyperlipidemia not requiring statin therapy (CMS/HCC) Morbid obesity with BMI of 40.0-44.9, adult (CMS/HCC) Expected: 07/11/2024 (Approximate), Expires: 07/11/2025 [facility] Comment on above: Expected: 07/11/2024 (Approximate), Expi res: 07/11/2025 Start: 07-11-2024 End: 07-11-2025 Lipid 1996 panel - Serum or Plasma Lipid panel Lab Routine Moderate mixed hyperlipidemia not requiring statin therapy (CMS/HCC) Expected: 07/11/2024 (Approximate), Expires: 07/11/2025 [facility] Comment on above: Expected: 07/11/2024 (Approximate), Expi res: 07/11/2025 Start: 07-11-2024 End: 07-11-2025 Microalbumin/Creatinine panel in random Urine Microalbumin / creatinine urine ratio Lab Routine Benign essential HTN (CMS/HCC) Expected: 07/11/2024 (Approximate), Expires: 07/11/2025 [facility] Work Phone: Comment on above: Expected: 07/11/2024 (Approximate), Expi res: 07/11/2025 Start: 07-11-2024 End: 07-11-2024 Patient encounter procedure [facility] Comment on above: Benign essential HTN (CMS/HCC) (Primary Dx); Chronic heart failure with preserved ejection fraction (CMS/HCC); Severe persistent asthma without complication (CMS/HCC) Start: 07-07-2024 Influenza vaccination Influenza Vaccine (#1) [facility] Start: 12-08-2022 [facility] Start: 07-07-2020 Influenza vaccination INFLUENZA (#1) [facility] Start: 2006 SHINGRIX VACCINE (1 of 2) SHINGRIX VACCINE (1 of 2) [facility] Start: 2006 Tuberculosis screening COLORECTAL CANCER SCREENING,SEE MODIFIER [facility] Start: 2001 DIABETES SCREEN DIABETES SCREEN [facility] Start: 2001 LIPID SCREEN LIPID SCREEN [facility] Start: 1996 Mammography MAMMOGRAM [facility] Start: 1986 HPV TESTING HPV TESTING [facility] Start: 1977 PAP TESTING PAP TESTING [facility] Start: 1975 Urine microalbumin profile DTAP,TDAP,TD (1 - Tdap) [facility] Start: 1975 Urine screening for protein Diabetes: Urine Protein Screening [facility] Start: 1974 HEPATITIS C SCREENING HEPATITIS C SCREENING [facility] Start: 1974 HIV SCREENING HIV SCREENING [facility] Start: 1966 Glaucoma screening Diabetes: Retinopathy Screening [facility] Start: 1956 Hemoglobin A1c measurement Diabetes: Hemoglobin A1C [facility] Start: 1956 Screening for malignant neoplasm of colon [facility] BLOOD CULTURE 1 BLOOD CULTURE 1 Lab Routine 08/08/2024 8:30 PM EDT [facility] BLOOD CULTURE 1 BLOOD CULTURE 1 Lab Routine 06/28/2024 8:20 PM EDT [facility] BLOOD CULTURE 1 BLOOD CULTURE 1 Lab Routine 01/02/2025 4:30 PM EST [facility] BLOOD CULTURE 1 BLOOD CULTURE 1 Lab Routine 03/10/2025 10:25 PM EDT [facility] BLOOD CULTURE 2 BLOOD CULTURE 2 Lab Routine 08/08/2024 8:20 PM EDT [facility] BLOOD CULTURE 2 BLOOD CULTURE 2 Lab Routine 06/28/2024 8:21 PM EDT [facility] BLOOD CULTURE 2 BLOOD CULTURE 2 Lab Routine 03/10/2025 10:32 PM EDT [facility] Dermatopathology exam Dermatopat hology exam Pathology and Cytology Timed Neoplasm of unspecified behavior of bone, soft tissue, and skin Release Upon Ordering for 1 Occurrences starting 10/11/2024 [facility] Work Phone: Comment on above: Release Upon Ordering for 1 Occurrences starting 10/11/2024 LOWER RESPIRATORY CULTURE LOWER RESPIRATORY CULTURE Lab Routine 08/12/2024 9:50 AM EDT [facility] Work Phone: Patient Education Colon Polypect shahram Hemorrhoids (DC) Diverticulosis (DC) [facility] Work Phone: Patient referral [facility] Work Phone: [facility] Immunizations Immunization Date Immunization Notes Care Provider Fa cili 09-06-2024 influenza, high dose seasonal, preservative-free Kaylene López NP Work Phone: [facility] 09-06-2024 influenza virus vaccine, unspecified formulation Aida Reese NP Work Phone: [facility] 08-26-2023 Influenza, High-dose Seasonal, Quadrivalent, Preservative Free Generic Provider [facility] 08-26-2023 influenza virus vaccine, unspecified formulation Generic Provider [facility] 08-18-2023 RSV, recombinant, protein subunit RSVpreF, adjuvant reconstitu, 120mcg/0.5mL, PF (Arexvy) Generic Provider [facility] 08-09-2023 Pneumococcal Conjuga te PCV 20 Generic Provider [facility] 11-01-2022 zoster vaccine recombinant Generic Provider [facility] 08-27-2022 zoster vaccine recombinant Generic Provider [facility] 08-04-2022 influenza virus vaccine, unspecified formulation MAG BLOUNT [facility] 08-04-2022 Influenza, High-dose Seasonal, Quadrivalent, Preservative Free Generic Provider [facility] 08-04-2022 SARS-CoV-2 (COVID-19 ) [id number] MAG BLOUNT [facility] 03-25-2022 SARS-CoV-2 (COVID-19 ) mRNA-1273 vaccine MAG BLOUNT [facility] 09-06-2021 SARS-CoV-2 (COVID-19 ) mRNA-1273 vaccine MAG JOSE ALEJANDRO [facility] 08-06-2021 influenza virus vaccine, unspecified formulation MAG BLOUNT [facility] 08-06-2021 Influenza, High-dose Seasonal, Quadrivalent, Preservative Free Generic Provider [facility] 02-04-2021 SARS-CoV-2 (COVID-19 ) mRNA-1273 vaccine MAG JOSE ALEJANDRO [facility] Comment on above: Result Comment: 2024: [id number] 01-07-2021 SARS-CoV-2 (COVID-19 ) mRNA-[id number] vaccine MAG BLOUNT [facility] Comment on above: Result Comment: 2024: [id number] 08-07-2020 influenza virus vaccine, unspecified formulation MAG BLOUNT [facility] 08-07-2020 influenza, injectabl e, quadrivalent, preservative free Generic Provider [facility] 08-09-2019 influenza virus vaccine, unspecified formulation MAG BLOUNT [facility] 08-09-2019 influenza, injectabl e, quadrivalent, preservative free Generic Provider [facility] 10-19-2018 pneumococcal polysaccharide vaccine, 23 valent Generic Provider [facility] 08-08-2018 influenza virus vaccine, unspecified formulation MAG BLOUNT [facility] 08-08-2018 influenza, injectabl e, quadrivalent, preservative free Generic Provider [facility] 07-18-2018 Depo-Medrol 40 mg Rena Gint y Other [facility] Other 01-31-2018 Depo-Medrol 40 mg Rena Gint y Other [facility] Other 08-10-2017 influenza virus vaccine, unspecified formulation MAG BLOUNT [facility] 08-10-2017 influenza, injectabl e, quadrivalent, preservative free Generic Provider [facility] 08-09-2017 influenza virus vaccine, split virus (incl. purified surface antigen) Generic Provider [facility] 08-09-2017 influenza virus vaccine, unspecified formulation Steph Collier Work Phone: [facility] 08-09-2017 influenza, seasonal, injectable, preservative free Rena Vannessa Other [facility] Other 09-02-2009 novel [id number], preservative-free, injectable Generic Provider [facility] Payers Date Payer Category Payer Medicare [id number] 2024 Medicaid [id number] 2024 Medicaid [id number] 2024 Medicare [id number] 2024 Private Health Insurance [id number] 2024 Medicare [id number] 2023 Medicare (Managed Care) 1.2. [id number] 2022 Unknown 2021 Medicare [id number] 2019 Medicaid MEDICAID [facility] MEDICAID [id number] 2019-Present Medicaid [id number] 2017 Medicare [id number] 2016 Medicare MEDICARE MEDICAR E A AND B [id number] 2016-Present [place], [place] Medicare [id number] 1959 Unknown [id number] 1956 Unknown [id number] 2.16.840.1.240243.3.579.2.6 47 1956 Unknown [id number] 2.16.840.1.395797.3.579.2.5 93 1956 Unknown [id number] 2.16.840.1.717103.3.579.2.5 93 1956 Unknown [id number] 2.16.840.1.384874.3.579.2.5 93 1956 Unknown [id number] 2.16.840.1.938354.3.579.2.5 93 1956 Unknown [id number] 2.16.840.1.399103.3.579.2.5 93 1956 Unknown [id number] 2.16.840.1.229370.3.579.2.5 93 1956 Unknown [id number] 2.16.840.1.036727.3.579.2.5 93 1956 Unknown [id number] 2.16.840.1.585911.3.579.2.5 93 1956 Unknown [id number] 2.16.840.1.025404.3.579.2.5 93 1956 Unknown [id number] 2.16.840.1.719848.3.579.2.5 93 1956 Unknown [id number] 2.16.840.1.938486.3.579.2.5 93 1956 Unknown [id number] 2.16.840.1.495336.3.579.2.7 1956 Unknown [id number] 2.16.840.1.955299.3.579.2.7 1956 Unknown [id number] 2.16.840.1.512479.3.579.2.7 27 1956 Unknown [id number] 2.16.840.1.437957.3.579.2.1 259 1956 Unknown [id number] 2.16.840.1.771152.3.579.2.1 259 1956 Unknown [id number] 2.16.840.1.980900.3.579.2.1 1956 Unknown [id number] 2.16.840.1.936399.3.579.2.1 1956 Unknown [id number] 2.16.840.1.945278.3.579.2.1 1956 Unknown [id number] 2.16.840.1.832878.3.579.2.1 1956 Unknown [id number] 2.16.840.1.561518.3.579.2.1 259 1956 Unknown [id number] 2.16.840.1.499206.3.579.2.1 1956 Unknown [id number] 2.16.840.1.831503.3.579.2.1 1956 Unknown [id number] 2.16.840.1.714143.3.579.2.1 1956 Unknown [id number] 2.16.840.1.233210.3.579.2.1 1956 Unknown [id number] 2.16840.1.099554.3.579.2.1 1956 Unknown [id number] 2.16.840.1.901703.3.579.2.1 1956 Unknown [id number] 2.16.840.1.261971.3.579.2.1 1956 Unknown [id number] 2.16.840.1.050380.3.579.2.1 1956 Unknown [id number] 2.16.840.1.862279.3.579.2.1 1956 Unknown [id number] 2.16.840.1.311328.3.579.2.1 259 1956 Unknown [id number] 2.16.840.1.289795.3.579.2.1 96 1956 Unknown [id number] 2.16.840.1.754457.3.579.2.1 96 1956 Unknown [id number] 2.16.840.1.714496.3.579.2.1 96 1956 Unknown [id number] 2.16.840.1.987539.3.579.2.7 27 1956 Unknown [id number] 2.16.840.1.247553.3.579.2.7 27 Medicare [id number] Self-pay Self Pay [id number] Unknown [id number] Social History Date Type Detail Facility Tobacco smoking stat [facility] Unknown if ever smoked [facility] Start: 1955 Sex Assigned At Female F [facility] Start: 09-11-2020 End: 09-05-2024 Tobacco smoking status NHIS Never smoker [facility] Start: 09-11-2020 End: 12-05-2023 Tobacco use and exposure Never used [facility] Start: 09-11-2020 End: 07-16-2025 Alcohol intake Lifetime non-drinker (finding) [facility] Start: 09-11-2020 History SDOH Alcohol Frequency 1 [facility] Start: 1955 Sex Assigned At Not on file C [facility] Start: 10-26-2023 End: 11-25-2024 Sex Assigned [...] Start: 02-17-2010 End: 11-13-2024 Sex Female (finding) [facility] How hard is it [...] [facility] Sexual Orientation [facility] NEGATED: Highlighted rowStart: NINF History of tobacco use Passive smoker [facility] Goals Date Patient Goal Desired Activity /State Personal health goal Functional Status Date Assessment Result Facility 03-24-2025 Functional Status N/A [facility] 10-15-2024 Functional Status N/A [facility] Clinical Notes 08-30-2021 to 07-16-2025 Jessica Lazo MD - 07/16/2025 2:45 PM EDTTelephone Encounter - Kaylene López NP - 05/19/2025 9:26 AM EDTTelephone Encounter - Kaylene López NP - 05/19/2025 9:26 AM EDTPatient Instructions Note Date & Type Note Facility 07-16-2025 History of Present illness Narrative Skin Check Location: Patient requests a skin examination of face, head, arms, hands. Dermatologic history: history of Squamous Cell Carcinoma Last visit: 6 months ago Lesions: Location: left lower leg-posterior Duration: a while Quality: painful at times Modifying factors: aggravated by picking Associated symptoms: non-healing Treatments: none Established patient All pertinent medical history, medications, and allergies were reviewed. General Exam: alert, oriented to person, place, and time, normal affect, well appearing uses a walker Accompanied by son A complete skin exam was offered, pt declined. Areas not examined despite medical recommendation: From the waist down Scalp, Examined , exam limited by hair Head, Face Examined Neck Examined Chest Not examined Back Not examined Abdomen Not examined Right arm Examined Left arm Examined Hands Examined Digits,nails: Examined Lymphatics: Not examined Skin Exam 1. SEBORRHEIC KERATOSIS (4) Head, Left Arm, Left Lower Leg - Posterior, Right Arm Stuck on verrucous, redd-brown papules and plaques. Patient was counseled regarding these benign growths. Removal is normally not necessary, but they may be removed if they are symptomatic or for cosmetic reasons. 2. LENTIGINES Head - Anterior (Face) Scattered redd macules in sun-exposed areas. The patient was informed that lentigines are benign pigmented lesions that occur on sun-exposed and sun-damaged skin. No treatment is necessary. Recommended regular use of broad spectrum sunscreen SPF 30 or higher 3. HISTORY OF SCC (SQUAMOUS CELL CARCINOMA) OF SKIN [facility] No evidence of recurrence at SCC scar. The patient was counseled that scars from excisional sites of nonmelanoma skin cancers should be monitored closely for recurrence. The patient was instructed to contact the office for any new, changing, or symptomatic moles. The patient was also instructed to contact the office for any new lesions that develop within or around the previous surgery scar. Next Visit: 1 year, skin check documented in this encounter [facility] 05-19-2025 Telephone encounter Note Call patient to [...] if no help let me know LESLIE [facility] 05-19-2025 Miscellaneous Notes Call patient to [...] me know LESLIE documented in this encounter [facility] 05-19-2025 History of Present illness Narrative [...] (HCC) Chronic kidney disease, stage III (moderate) ([facility]) Chronic obstructive pulmonary disease (COPD) (HCC) Colon cancer (HCC) Colorectal cancer ([facility]) Contact w and exposure to oth viral communicable diseases COPD exacerbation ([facility]) Coronary artery disease Depression Emphysema, unspecified ([facility]) Encounter for gynecological examination (general) (routine) without abnormal findings Essential (primary) hypertension Exposure to STD Gastroesophageal reflux disease General deterioration of health HPV in female Hyperlipidemia Hyperuricemia Intertrigo Iron deficiency anemia Low back pain Morbid obesity with BMI of 40.0-44.9, adult ([facility]) Osteoporosis screening Pneumonia Positive depression screening Post-menopausal Restless leg syndrome Right hip pain Urge incontinence Vitamin D deficiency Past Surgical History: Procedure Laterality Date BACK SURGERY 2004 CARDIAC CATHETERIZATION Left 06/14/2014 Left Heart-Ventricular Puncture CARDIAC CATHETERIZATION Left 08/13/2018 Left Heart-Ventricular Puncture FOOT SURGERY 09/2015 JOINT REPLACEMENT Left 08/01/2016 Hip replacement REVISION TOTAL HIP ARTHROPLASTY Left 03/[address] LINN SPINAL FUSION 05/07/2003 [facility] TOTAL HIP ARTHROPLASTY Left 08/30/2019 REMOVED TOTAL [...] Morbid (severe) obesity due to excess calories ([facility]) Discussed with patient their BMI (actual, [...] not take any documented in this encounter [facility] 04-09-2025 History of Present illness Narrative Associated Problem(s): Depression (CMS/HCC) Current med paxil Will add on medication 3L Images from the original note were not included. Diana Champion is a 69 y.o. female presents with chief complaint of Hospital Follow-up HPI: Here for hospital follow up: Discharged to [place] on 03/25/25. 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 Associated Problem(s): Morbid (severe) obesity due to [...] oxygen dependant, non invasive vent at night [facility] 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 General instructions Take llpy-icz-yqbcvew and prescription medicines only as told by [...] provider. Document Revised: 07/12/2021 Document Reviewed: 07/12/2021 [employer] Patient Education 2023 [employer]. Follow Up Care 10/15/2024 15:05:18 With:MAG BLOUNT PA-C, URL Address: [facility] [address] [facility] [address] When:Within 3 Month(s) [facility] 03-24-2025 Note Patient Education Obstetrics [...] health care provider. General instructions ??? Take qhla-hub-ncvpwbj and prescription medicines only as told by [...] drink, and whe (more content not included)... [facility] 02-17-2025 History of Present illness Narrative Associated [...] ferrous sulfate 325 mg, Daily with breakfast Cdbhlkklulj-Vszhuggse-Nwpktd (Trelegy Ellipta) 200-62.5-25 MCG/ACT aerosol powder 1 [...] 40.0-44.9, adult ([facility]) Osteoporosis screening Pneumonia Positive depression screening Post-menopausal Restless leg syndrome Right hip pain Urge incontinence Vitamin D deficiency Past Surgical History: Procedure Laterality Date BACK SURGERY 2003 CARDIAC CATHETERIZATION Left 06/14/2014 Left Heart-Ventricular Puncture CARDIAC CATHETERIZATION Left 08/13/2018 Left Heart-Ventricular Puncture FOOT SURGERY 09/2015 JOINT REPLACEMENT Left 08/01/2016 Hip replacement REVISION TOTAL HIP ARTHROPLASTY Left 03/[address] LINN SPINAL FUSION 05/07/2003 [facility] TOTAL HIP ARTHROPLASTY Left 08/30/2019 REMOVED TOTAL [...] significantly elevated right sided pressure at [facility] Gastroesophageal reflux disease Recommendations: freq small [...] invasive vent at night Johny is managing naval gunfire liaison officer Edema of both lower extremities Elevate legs [...] invasive vent at night 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 is managing naval 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 She's been in and out of [facility] for pneumonia recently. Had echo a [...] breath since then. She has seen her naval gunfire liaison officer. Her chest pain is noncardiac. She has [...] mouth every other day., Disp: , Rfl: ylpnabqdtsk-ranbtngyr-mkpcryfu 100-62.5-25 mcg blister with device, , Disp: [...] mg tablet, YOKO (more content not included)... [facility] 01-16-2025 History of Present illness Narrative Associated [...] new atb and sputum result. She will filler picker new atb after appt. Images from [...] chills, +weakness, has home health Nurse from [facility] coming today, not sure if any [...] ferrous sulfate 325 mg, Daily with breakfast Qkwlyqkuhwq-Sxdppwhlc-Yidoeb (Trelegy Ellipta) 200-62.5-25 MCG/ACT aerosol powder 1 [...] 03/[address] LINN SPINAL FUSION 05/07/2003 [facility] TOTAL HIP ARTHROPLASTY Left 08/30/2019 REMOVED TOTAL [...] daily for 7 day Recent hospitalization to [facility]: back to back, 01/02/25 and 01/08/25 [...] significantly elevated right sided pressure at [facility] Associated Problem(s): Severe persistent asthma, uncomplicated (CMS/HCC) Is under the care of dr mcclain Current meds for treatment of asthma/COPD: albuterol, trelegy, singulair Associated Problem(s): Pneumonia due to infectious organism Respiratory panel: culture pseudomonas Was sent home on doxy, will have her stop this, and start levoquin 750mg daily for 7 day Recent hospitalization to [facility]: back to back, 01/02/25 and 01/08/25 I have reviewed her hospital notes, labs, discharge info as well Associated Problem(s): Chronic respiratory failure with hypoxia (CMS/HCC) Is oxygen dependant, non invasive vent at night samsa documented in this encounter [facility] 01-16-2025 Instructions Kaylene López NP - [...] OT for home documented in this encounter [facility] 01-15-2025 History of Present illness Narrative Associated Problem(s): Pneumonia due to infectious organism Respiratory panel: culture pseudomonas Was sent home on doxy, will have her stop this, and start levoquin 750mg daily for 7 day documented in this encounter [facility] 01-02-2025 History of Present illness Narrative Associated Problem(s): Flu-like symptoms Neg, still strong clinical suspicion for flu, d/t severe pulmonary conditions and weakness will send her to [facility] ER for evaluation DD: pneumonia, covid, flu, RSV Associated Problem(s): Chronic respiratory failure with hypoxia (CMS/HCC) Oxygen level 88-90% w walking, normal 94-95% w oxygen Associated Problem(s): Chronic obstructive pulmonary disease (COPD) (CMS/HCC) [facility] naval gunfire liaison officer Pt started having symptoms on Monday with [...] Diarrhea started today, others have been sick [facility] naval gunfire liaison officer Flu Symptoms This is a new problem. [...] ferrous sulfate 325 mg, Daily with breakfast Imfagzoplwo-Tllshegto-Zvozlt (Trelegy Ellipta) 200-62.5-25 MCG/ACT aerosol powder 1 [...] moderate risk for fall Benign essential HTN ([facility]) Breast cancer screening by mammogram Chronic back pain greater than 3 months duration Chronic heart failure with preserved ejection fraction ([facility]/HCC) Chronic kidney disease, stage III (moderate) (HCC) ([facility]) Chronic obstructive pulmonary disease (COPD) ([facility]/HCC) Colon cancer ([facility]/HCC) Colorectal cancer ([facility]/HCC) Contact w and exposure to oth viral communicable diseases COPD exacerbation ([facility]/HCC) Coronary artery disease ([facility]/HCC) Depression ([facility]/HCC) Emphysema, unspecified ([facility]) Encounter for gynecological examination (general) (routine) without abnormal findings Essential (primary) hypertension ([facility]/HCC) Exposure to STD Gastroesophageal reflux disease General deterioration of health HPV in female Hyperlipidemia ([facility]/HCC) Hyperuricemia Intertrigo Iron deficiency anemia Low back pain Morbid obesity with BMI of 40.0-44.9, adult ([facility]) Osteoporosis screening Pneumonia Positive depression screening Post-menopausal Restless leg syndrome Right hip pain Urge incontinence Vitamin D deficiency Past Surgical History: Procedure Laterality Date BACK SURGERY 2004 CARDIAC CATHETERIZATION Left 06/14/2014 Left Heart-Ventricular Puncture CARDIAC CATHETERIZATION Left 08/13/2018 Left Heart-Ventricular Puncture FOOT SURGERY 09/2015 JOINT REPLACEMENT Left 08/01/2016 Hip replacement REVISION TOTAL HIP ARTHROPLASTY Left 03/[address] LINN SPINAL FUSION 05/07/2003 [facility] TOTAL HIP ARTHROPLASTY Left 08/30/2019 REMOVED TOTAL [...] disease (COPD) ([facility]/HCC) [facility] naval gunfire liaison officer Morbid (severe) obesity due to excess calories ([facility]) Discussed with patient their BMI (actual, [...] conditions and weakness will send her to [facility] ER for evaluation DD: pneumonia, covid, [...] not take any documented in this encounter [facility] 12-17-2024 History of Present illness Narrative [...] Visit: 6 months documented in this encounter [facility] 12-17-2024 History of Present illness Narrative Images from the original note were not included. HISTORY OF PRESENT ILLNESS: EST PT Diana Champion is an 69 y.o. @ female. EST PT HERE FOR YEARLY REACHECK RT TKA ~6YRS 2MO (10/18/18) - XRAY RT KNEE & RT HIP TODAY EPIC 12/17/24 XRAY EXA 11/16/22 XRAY [facility] (EXA) 11/18/20 NO BONE SCAN NO [...] ferrous sulfate 325 mg, Daily with breakfast Qutnngtnsrh-Hsmtkqdtp-Wzkrmm (Trelegy Ellipta) 200-62.5-25 MCG/ACT aerosol powder 1 [...] be necessary. Pt will consult with her Product/Industry Consultant to see if she would be a [...] requiring urgent evaluation. documented in this encounter [facility] 12-13-2024 History of Present illness Narrative [...] skin of chest Chest - Medial (Center) [place] macule at the biopsy site. Destr of lesion Complexity: simple Destruction method: cryotherapy Informed consent: discussed and consent obtained Informed consent comment: The risks of the procedure were discussed, including, but not limited to risks of scarring, darker or funeral arrangement director pigmentary changes, recurrence, infection, and incomplete removal [...] or tenderness. Additional details: Previous accession number: [id number] Discussed treatment options excision vs cryotherapy in detail. Patient opted for cryotherapy. Cryotherapy completed today, see procedure note. Return to clinic prior to next scheduled visit for any signs or symptoms of recurrence, reviewed the signs and symptoms. Recommended 6 month skin exam. Next Visit: as scheduled documented in this encounter [facility] 11-28-2024 History of Present illness Narrative Associated Problem(s): Chronic obstructive pulmonary disease (COPD) ([facility]) Was admitted to [facility] for COPD with acute exacerbation. Was [...] for Hospital Follow-up. HPI Was admitted to [facility] for COPD with acute exacerbation. Was [...] disease (COPD) ([facility]) - Primary Was admitted to [facility] for COPD with acute exacerbation. Was [...] hospital follow up. documented in this encounter [facility] 11-28-2024 Instructions Aida Reese NP - 11/28/2024 1:[address] Mcclain's office to see if he wants to see you for hospital follow up sooner than January. Take and finish all medications as directed. documented in this encounter [facility] 11-12-2024 History of Present illness Narrative Associated Problem(s): Chronic obstructive pulmonary disease (COPD) ([facility]) 5 days ago woke up, body [...] disease (COPD) ([facility]) - Primary 5 days ago woke up, [...] 1 g tablet documented in this encounter [facility] 11-12-2024 Instructions Aida Reese NP - [...] [facility] EMERGENCY DEPARTMENT. documented in this encounter [facility] 10-17-2024 Note Attestation signed by Emelia [...] Age: 69 y.o. : 1955 Account No.: [id number] Referring physician: Dr. Bo Mcclain Chief complaint: Recurreny pneumonia HPI Diana Champion is a 69 y.o. female with PMHx of chronic hypoxic respiratory failure on 3L home O2, tracheobronchomalacia who is presenting to clinic for follow up. Patient was previously referred by Dr. Bo Mcclain of [facility] in June of 2024. Patient had been having frequent pneumonias requiring hospitalization thought to be secondary to dynamic airway collapse. Therefore we performed bronchoscopy with airway inspection on 07/02/2024 which showed severe tracheobronchomalacia with mucous plugging. She subsequently followed up post procedure and different treatment options were discussed. She was hesitant to undergo APC or tracheal bronchoplasty at [facility] and instead opted to trial CPAP to [...] years. 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 Her family history is positive for COPD [...] Diagnosis Date Allergic rhinitis Anemia Asthma Cancer ([facility]) Chronic heart failure with preserved ejection fraction ([facility]) Chronic hypoxic respiratory failure ([facility]) Chronic kidney disease COPD (chronic obstructive pulmonary disease) ([facility]) Coronary artery disease Depression Diabetes mellitus ([facility]) Dyspnea GERD (gastroesophageal reflux disease) Hyperlipidemia Lumbar spondylosis Other secondary pulmonary hypertension ([facility]) Pneumonia Primary osteoarthritis of right hip [...] mg by bessie (more content not included)... [facility] 10-15-2024 Hospital Discharge instructions Patient Education 10/15/2024 [...] your health care provider. General instructions Take syns-uck-gmvuuhb and prescription medicines only as told by [...] provider. Document Revised: 07/12/2021 Document Reviewed: 07/12/2021 [employer] Patient Education 2023 [employer]. Follow Up Care 10/11/2024 14:37:09 With:JOSE ALEJANDRO MICHAUD, MAG Hester, URL Address: [address] [place], [place] [address] [address] When:Within 3 Month(s) [facility] 10-15-2024 Note Urology Office/Clini [...] 235.894 lb BMI: 40.27 Assessment/Plan CHF - RUST Blair CKD - Joana COPD/Pulm - Samsa/Omballi. [...] could include cysto, urodynamics, Botox, SNM. Orders: [id number] Measure Post Void residual urine and/or bladder capacity by US- non-imaging E&M of New Patient Moderate 45-59 Min 38837 Urine Culture Urnls Dip Stick Auto w/o Microscopy POC 30538 Follow-up With When Contact Information JOSE ALEJANDRO MICHAUD, MAG Hester, URL In 3 months [address] [place] [address] Additional Instructions: Patient Education Overactive [...] drop(s) Allergies f (more content not included)... [facility] Comment on above: Result Comment: Elec tronically Signed By: MAG BLOUNT PA-C.br\Date and Time Signed: 10/15/24 16:57 EST 10-15-2024 [...] health care provider. General instructions ??? Take bnbj-kmp-trekrcm and prescription medicines only as told by [...] drink, and whe (more content not included)... [facility] 10-11-2024 History of Present illness Narrative Images [...] pending biopsy results documented in this encounter [facility] 10-07-2024 History of Present illness Narrative [...] Pulmonology- Dr. Mcclain and Dr. Yoo Cardiology- [facility] Ortho- Dr. Corrales Nephrology- Dr. [...] (moderate) (HCC) ([facility]) Follows with Dr. Bermudez. Monitor CMP, avoid nephrotoxic agents. Morbid obesity with BMI of 40.0-44.9, adult (CMS/[facility]) Discussed with patient their BMI (actual, verses recommended). We have also discussed lifestyle modifications: attempts to perform physical activity as chronic conditions allow, also to monitor dietary intake: increasing protein/fruits/veggies and lowering carb intake (unless contraindicated). Limit sodas, juices, and sugary drinks. Urge incontinence - Primary Relevant Orders Ambulatory referral to Urology Chronic respiratory failure with hypoxia ([facility]) Following closely with Dr. Mcclain. Recent [...] referral to Dermatology documented in this encounter [facility] 09-03-2024 Telephone encounter Note Pt requesting a refill on her Omeprazole BECK:08/19/2024 NOV:10/09/2024 [facility] 09-03-2024 Miscellaneous Notes Pt requesting a refill on her Omeprazole BECK:08/19/2024 NOV:10/09/2024 documented in this encounter [facility] 08-22-2024 Telephone encounter Note Patient called in saying you wanted her to do a stool sample, but she has not gotten an order for that, so she wasn't sure when she was supposed to do that. Also her pregabalin needs refilled but she said that [facility] had a hard time getting it in last time. MAYANK [facility] 08-22-2024 Miscellaneous Notes Patient called in [...] spelled that right) nurse phone number is [phone] or you can contact patient she said. MAYANK documented in this encounter [facility] 08-19-2024 History of Present illness Narrative Last Monday left hospital and has been having diarrhea about 6 times a day. Images from the original note were not included. Subjective Patient ID: Diana Champion is a 69 y.o. female who presents for No chief complaint on file.. [facility] Hospital follow up; Was seen at [facility] 08/08/24-08/12/24 ARF; Was discharged home on [...] Orders Clostridium difficile,EIA documented in this encounter [facility] 08-19-2024 Instructions Aida Reese NP - 08/19/2024 11:30 AM EDT Continue Augmentin. Start taking OTC probiotics Have stool culture completed to test for C.Difficile. If negative continue ATB regimen as directed. If positive we will treat accordingly. Keep all follow up appointments as scheduled. documented in this encounter [facility] 08-13-2024 Note Gram Stain Evaluation This specimen is of good quality and is acceptable for routine [facility] 08-13-2024 Note [facility] GRAM STAIN EVALUATION bacterial culture. [facility] 08-13-2024 Telephone encounter Note Patient's home [...] spelled that right) nurse phone number is [phone] or you can contact patient she said. JN [facility] 07-16-2024 Telephone encounter Note Pt informed of lab results and provider recommendations. Pt does do chair exercises four times a week and walks (with walker) but due to her health conditions she is limited. Pt is in a wheelchair with very limited ambulation -SCR [facility] 07-16-2024 Miscellaneous Notes Pt informed of [...] Aida Reese NP documented in this encounter [facility] 07-16-2024 Telephone encounter Note ----- Message [...] 9:29 AM EDT To: Aida Reese NP [facility] 07-11-2024 Note Attestation signed by Emelia [...] Age: 68 y.o. : 1955 Account No.: [id number] [facility] Chief Complaint: follow [...] years. 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 Her family history is positive for COPD [...] was initiated by the patient and conducted lzw-dsbb-am-face with use of audio-only real time telephone [...] by mouth every other day. Historical Provider, hiroassuqih-ueeyefknv-qggvqcvo 100-62.5-25 mcg blister with device Historical Provider, [...] (Theragran-M) 9 mg (more content not included)... [facility] 07-11-2024 History of Present illness Narrative Associated Problem(s): Morbid obesity with BMI of 40.0-44.9, adult (CMS/[facility]) Discussed with patient their BMI (actual, [...] failure with preserved ejection fraction (CMS/HCC) [facility] Lasix 20mg Associated Problem(s): Benign essential HTN (CMS/HCC) Currently not taking any medications. Bp is well controlled. Averages 120's-130's. Images from the original note were not included. Subjective Patient ID: Diana Champion is a 68 y.o. female who presents for Follow-up. HPI Specialists: Pulmonology- Dr. Mcclain and Dr. Yoo Cardiology- [facility]- Dr. Corrales Nephrology- Dr. Sky Was seeing Urology 5 years ago for urinary retention. Now is having mixed incontinence. Does not want referral today, would like to revisit at next visit. Was seen on 06/12/24 for Hospital follow up. Is following closely with Pulmonology; Tracheobronchomalacia HTN: Currently not taking any medications. Bp is well controlled. Averages 120's-130's. HFpEF: [facility] seen in May 2024 Lasix [...] with preserved ejection fraction (CMS/HCC) Follows Cardiology- [facility] Was seen in May 2024 Lasix 20mg Relevant Orders Comprehensive metabolic panel CBC and differential Hyperlipidemia ([facility]/HCC) Currently not on any medications: Lifestyle and dietary modifications. Recheck lipid pane today. Relevant Orders Lipid panel Comprehensive metabolic panel CBC and differential Morbid obesity with BMI of 40.0-44.9, adult ([facility]) Discussed with patient their BMI (actual, verses recommended). We have also discussed lifestyle modifications: attempts to perform physical activity as chronic conditions allow, also to monitor dietary intake: increasing protein/fruits/veggies and lowering carb intake (unless contraindicated). Limit sodas, juices, and sugary drinks. Relevant Orders Comprehensive metabolic panel CBC and differential Severe persistent asthma without complication ([facility]) Currently taking Trelegy Singulair Albuterol Was seen on 06/12/24 for Hospital follow up. Is following closely with Pulmonology; Tracheobronchomalacia documented in this encounter [facility] 07-11-2024 Instructions Aida Reese NP - 07/11/2024 8:30 AM EDT FASTING labs ordered. Nothing to eat or drink for 12 hours prior to blood draw. Water and black coffee ok. documented in this encounter [facility] 07-02-2024 Note Patient: Yannick Champion Pre-sedation Evaluation: Sedation necessary for: Analgesia Requesting service: Pulmonary History of Present Illness: Refer to H &P LOAN AUDITOR/Current Medications: Reviewed Recent sedation/surgery (24 hours): No Review of Systems: Negative NPO guidelines met: Yes Physical Exam: Airway Mallampati: II Neck ROM: full Cardiovascular (-) murmur, friction rub, carotid bruits Dental Pulmonary (+) on nasal cannula (-) tachypnea, accessory muscle use (-) wheezes, rales Plan: ASA 3 Moderate Proceed with consious sedation for Bronchoscopy and BAL [facility] 07-02-2024 Note Attestation signed by Ghulam Petersen MD at 07/08/2024 2:41 PM I was present and supervised the entire procedure PULMONARY & CRITICAL CARE MEDICINE PROCEDURE NOTE FLEXIBLE FIBEROPTIC BRONCHOSCOPY INDICATIONS AND HISTORY: Please refer to H&P PROCEDURE: Flexible Fiberoptic Bronchoscopy with airway inspection ANESTHESIA: Conscious sedation PREPROCEDURE DIAGNOSIS: Recurrent pneumonias, concern for dynamic airway collapse, chronic cough POSTPROCEDURE DIAGNOSIS: Severe tracheobronchomalacia PROCEDURE ELECTRICAL ENGINEER: Goran Canseco ATTENDING PHYSICIAN: Dr. Ghulam [...] by trained RN and supervised by the Product/Industry Consultant. Continuous monitoring of heart rate, respiratory rate, [...] 1-2 weeks for treatment options for tracheobronchomalacia [facility] 06-25-2024 Note Attestation signed by Emelia Yoo [...] Age: 68 y.o. : 1955 Account No.: [id number] Referring physician: Dr. Bo Mcclain Chief complaint: Recurreny pneumonia HPI Diana Champion is a 68 y.o. female with PMHx of reportedly COPD, chronic hypoxic respiratory failure on 2L home O2 who is presenting to clinic as a new patient after being referred by Dr. Bo Baker of [facility]. Patient has been admitted 4 times [...] years. 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 Her family history is positive for COPD [...] Asthma Cancer ([facility]) COPD (chronic obstructive pulmonary disease) ([facility]) Coronary artery disease GERD (gastroesophageal reflux [...] mouth every other day. Yes Historical Provider, froyffanoso-nyrwgaksw-iwfehinv 100-62.5-25 mcg blister with device Yes Historical [...] mEq ER ta (more content not included)... [facility] 05-13-2024 Note [facility] Cardiology Clinic Note Chief Complaint: Patient here for 1 year follow up CAD and hypertension. She was recently discharged from [facility] for Covid-19. She says hydrochlorothiazide was [...] breath since then. She has seen her naval gunfire liaison officer. Her chest pain is noncardiac. She has [...] Asthma, Cancer ([facility]), COPD (chronic obstructive pulmonary disease) ([facility]), Coronary artery disease, GERD (gastroesophageal reflux [...] mouth every other day., Disp: , Rfl: heqcmszwzyy-azwtsbbnw-gsiktfok 100-62.5-25 mcg blister with device, , Disp: [...] Examination: GENERAL: a (more content not included)... [facility] 09-07-2023 Evaluation note Encounter Date Diagnosis Assessment Notes Sep, Hypomagnesemia (ICD-10 - E83.42) [facility] Other 10-23-2023 Evaluation note* Encounter Date Diagnosis Assessment Notes Treatment Notes Treatment Clinical Notes Aug, Nico bolden cr kid I-IV (ICD-10 - I12.9) [facility] [employer] Other 10-12-2023 Evaluation note* Encounter Date Diagnosis [...] PPI induced GI losses. Continue oral Magnesium [facility] Other 05-19-2023 NotePROCEDURE: XR HIP RT 2 3V W PELVIS HISTORY: Pain in right hip joint , chronic COMPARISON: XR L-spine 02/26/2019, XR left hip with pelvis 03/11/2017 FINDINGS: BONES:Complete loss of the right hip joint space with mfjb-rs-uvjh articulation, subchondral sclerosis and cysts, and large periarticular degenerative osteophytes. No fracture or dislocation. Left hip replacement. Mechanical fusion of L5-S1 and moderate dextroscoliosis of lumbar spine. SOFT TISSUES:No visible soft tissue swelling. EFFUSION:None visible. OTHER: Negative. IMPRESSION: 1. Marked degenerative joint disease of the right hip; progressed since prior study. 2. Stable surgical changes. Electronically authenticated by: STEPH GRANADOS Date: 2023-03-24 12:55[facility]04-27-2023 Evaluation note* Encounter Date Diagnosis Assessment Notes [...] PPI induced GI losses. Continue oral Magnesium [facility] [facility]02-[facility]* Encounter Date Diagnosis Assessment Notes Treatment Notes Treatment Clinical Notes Nov, Hypokalemia (ICD-10 - E87.6) Nov, Hypomagnesemia (ICD-10 - E83.42) [facility] Other 10-04-2022 Evaluation note* Encounter Date Diagnosis [...] office does not accept her new insurance. [facility] Other 09-02-2022 Evaluation note* Encounter Date Diagnosis Assessment Notes Treatment Notes Treatment Clinical Notes Jul, History of colon cancer (ICD-10 - Z85.038) [facility] Other 01-12-2022 Evaluation note* Encounter Date Diagnosis [...] potassium wasting. I have prescribed oral potassium. [facility] Other [id number] Evaluation note* Encounter Date Diagnosis Assessment Notes [...] Patient care instructions given in writting by [facility] document [facility] Other Evaluation + Plan note Future Appointments Appointment Date:01/13/2025 09:40:00 AM Scheduled Provider:MAG BLOUNT PA-C Location:[facility] Appointment Type:URO Office Visit Diagnostic Tests Pending * Urine Culture 10/15/24 [facility] Evaluation + Plan note Future Appointments Appointment Date:01/13/2025 09:40:00 AM Scheduled Provider:MAG BLOUNT PA-C Location:[facility] Appointment Type:URO Office Visit [facility] evaluation + Plan note Future Appointments Appointment Date:06/23/2025 09:40:00 AM Scheduled Provider:MAG BLOUNT PA-C Location:[facility] Appointment Type:URO Office Visit [facility] evaluation + Plan note Future Appointments Appointment Date:07/08/2025 02:30:00 PM Scheduled Provider:Amalia Stephens PA-C Location:[facility] Appointment Type:URO Office Visit [facility] evaluation noteNo Krush Other evaluation note* Diagnosis Onset Date Resolution Status History of colon cancer acut e [facility] Work Phone: evaluation note* Diagnosis Onset Date Resolution Status Hypokalemia acute Hypomagnesemia acute Stage 3 chronic kidney disease acute COVID noneactive Pneumonia noneactive [facility] Work Phone: evaluation note* Diagnosis Moderate persistent asthma with exacerbation ([facility]/HCC)- Primary Unspecified asthma, with exacerbation Non-recurrent acute suppurative otitis media of both ears without spontaneous rupture of tympanic membranes Colorectal cancer ([facility]/HCC) Malignant neoplasm of colon, unspecified site Chronic heart failure with preserved ejection fraction ([facility]) Pulmonary emphysema, unspecified emphysema type ([facility]/HCC) Moderate episode of recurrent major depressive disorder ([facility]/HCC)- Primary Moderate persistent asthma with exacerbation ([facility]/HCC) Unspecified asthma, with exacerbation Medicare annual wellness visit, subsequent Severe persistent asthma with acute exacerbation ([facility]/HCC)- Primary Hospital discharge follow-up Other follow-up examination Severe persistent asthma without complication ([facility]/HCC)- Primary Essential hypertension ([facility]/HCC) Unspecified essential hypertension JEANNE (acute kidney injury) ([facility]) Leukocytosis, unspecified type Chronic respiratory failure with hypoxia ([facility]/HCC) Chronic bilateral low back pain without sciatica- Primary Vitamin D deficiency Chronic bilateral low back pain without sciatica- Primary Pneumonia due to infectious organism, unspecified laterality, unspecified part of lung- Primary Screening mammogram for breast cancer Chronic respiratory failure with hypoxia (CMS/HCC) Pulmonary emphysema, unspecified emphysema type (CMS/HCC) Essential hypertension ([facility]/HCC) Unspecified essential hypertension Morbid obesity with BMI of 40.0-44.9, adult ([facility]) Hospital discharge follow-up- Primary Other follow-up examination Chronic respiratory failure with hypoxia (CMS/HCC) Severe persistent asthma without complication (CMS/HCC) Severe persistent asthma with acute exacerbation (CMS/HCC)- Primary Severe persistent asthma with exacerbation ([facility]/HCC)- Primary Unspecified asthma, with exacerbation Hospital discharge follow-up- Primary Other follow-up examination Chronic respiratory failure with hypoxia (CMS/HCC)- Primary Hospital discharge follow-up Other follow-up examination Benign essential HTN ([facility]/HCC) Chronic heart failure with preserved ejection fraction (CMS/HCC) Severe persistent asthma without complication (CMS/HCC) Moderate mixed hyperlipidemia not requiring statin therapy ([facility]) Morbid obesity with BMI of 40.0-44.9, adult ([facility]) Opioid use Chronic, continuous use of opioids Chronic back pain greater than 3 months duration Moderate persistent asthma with exacerbation ([facility]/HCC)- Primary Unspecified asthma, with exacerbation Diarrhea, unspecified type documented in this encounter [facility] HealthcareEvaluation note* Diagnosis Moderate persistent asthma with exacerbation ([facility]/HCC)- Primary Unspecified asthma, with exacerbation Non-recurrent acute suppurative otitis media of both ears without spontaneous rupture of tympanic membranes Colorectal cancer ([facility]) Malignant neoplasm of colon, unspecified site Chronic heart failure with preserved ejection fraction ([facility]) Pulmonary emphysema, unspecified emphysema type ([facility]) Moderate episode of recurrent major depressive disorder ([facility])- Primary Moderate persistent asthma with exacerbation ([facility]/HCC) Unspecified asthma, with exacerbation Medicare annual wellness visit, subsequent Severe persistent asthma with acute exacerbation ([facility]/HCC)- Primary Hospital discharge follow-up Other follow-up examination Severe persistent asthma without complication (CMS/HCC)- Primary Essential hypertension (CMS/HCC) Unspecified essential hypertension JEANNE (acute kidney injury) ([facility]) Leukocytosis, unspecified type Chronic respiratory failure with hypoxia (CMS/HCC) Chronic bilateral low back pain without sciatica- Primary Vitamin D deficiency Chronic bilateral low back pain without sciatica- Primary Pneumonia due to infectious organism, unspecified laterality, unspecified part of lung- Primary Screening mammogram for breast cancer Chronic respiratory failure with hypoxia ([facility]/HCC) Pulmonary emphysema, unspecified emphysema type (CMS/HCC) Essential hypertension (CMS/HCC) Unspecified essential hypertension Morbid obesity with BMI of 40.0-44.9, adult ([facility]) Hospital discharge follow-up- Primary Other follow-up [...] 40.0-44.9, adult ([facility]) Opioid use Chronic, continuous use of opioids Chronic back pain greater than 3 months duration Restless leg syndrome Restless legs syndrome (RLS) documented in this encounter [facility] HealthcareEvaluation note* Diagnosis Moderate persistent asthma with exacerbation (CMS/HCC)- Primary Unspecified asthma, with exacerbation Non-recurrent acute suppurative otitis media of both ears without spontaneous rupture of tympanic membranes Colorectal cancer ([facility]/HCC) Malignant neoplasm of colon, unspecified site Chronic heart failure with preserved ejection fraction ([facility]/HCC) Pulmonary emphysema, unspecified emphysema type ([facility]/HCC) Moderate episode of recurrent major depressive disorder ([facility]/HCC)- Primary Moderate persistent asthma with exacerbation ([facility]) Unspecified asthma, with exacerbation Medicare annual wellness visit, subsequent Severe persistent asthma with acute exacerbation ([facility]/HCC)- Primary Hospital discharge follow-up Other follow-up examination [...] 40.0-44.9, adult ([facility]/HCC) Opioid use Chronic, continuous use of opioids Chronic back pain greater than 3 months duration Gastroesophageal reflux disease without esophagitis Esophageal reflux documented in this encounter [facility] HealthcareEvaluation noteNo assessment information availableMagruder Hospital Ctr Work Phone: Evaluation note* Diagnosis [...] with exacerbation ([facility]/HCC) Unspecified asthma, with exacerbation Medicare annual wellness [...] 40.0-44.9, adult ([facility]) Hospital discharge follow-up- Primary Other follow-up [...] statin therapy ([facility]) Morbid obesity with BMI of 40.0-44.9, adult ([facility]) Opioid use Chronic, continuous use of opioids Chronic back pain greater than 3 months duration Vaginal guero- Primary Candidiasis of vulva and vagina documented in this encounter [facility] HealthcareEvaluation note* Diagnosis Moderate persistent asthma with exacerbation ([facility]/HCC)- Primary Unspecified asthma, with exacerbation Non-recurrent acute suppurative otitis media of both ears without spontaneous rupture of tympanic membranes Colorectal cancer ([facility]/HCC) Malignant neoplasm of colon, unspecified site Chronic heart failure with preserved ejection fraction ([facility]/HCC) Pulmonary emphysema, unspecified emphysema type ([facility]/HCC) Moderate episode of recurrent major depressive disorder ([facility])- Primary Moderate persistent asthma with exacerbation ([facility]) Unspecified asthma, with exacerbation Medicare annual wellness visit, subsequent Severe persistent asthma with acute exacerbation ([facility]/HCC)- Primary Hospital discharge follow-up Other follow-up examination [...] Essential hypertension ([facility]/HCC) Unspecified essential hypertension Morbid obesity with BMI of 40.0-44.9, adult ([facility]) Hospital discharge follow-up- Primary Other follow-up examination Chronic respiratory failure with hypoxia ([facility]/HCC) Severe persistent asthma without complication ([facility]/HCC) Severe persistent asthma with acute exacerbation (CMS/HCC)- Primary Severe persistent asthma with exacerbation ([facility]/HCC)- Primary Unspecified asthma, with exacerbation Hospital discharge follow-up- Primary Other follow-up examination Chronic respiratory failure with hypoxia ([facility]/HCC)- Primary Hospital discharge follow-up Other follow-up examination Benign essential HTN (CMS/HCC) Chronic heart failure with preserved ejection fraction (CMS/HCC) Severe persistent asthma without complication (CMS/HCC) Moderate mixed hyperlipidemia not requiring statin therapy ([facility]) Morbid obesity with BMI of 40.0-44.9, adult ([facility]) Opioid use Chronic, continuous use of opioids Chronic back pain greater than 3 months duration Restless leg syndrome Restless legs syndrome (RLS) documented in this encounter [facility] HealthcareEvaluation note* Diagnosis Moderate persistent asthma with exacerbation ([facility]/HCC)- Primary Unspecified asthma, with exacerbation Non-recurrent acute suppurative otitis media of both ears without spontaneous rupture of tympanic membranes Colorectal cancer ([facility]/HCC) Malignant neoplasm of colon, unspecified site Chronic heart failure with preserved ejection fraction ([facility]/HCC) Pulmonary emphysema, unspecified emphysema type ([facility]/HCC) Moderate episode of recurrent major depressive disorder ([facility])- Primary Moderate persistent asthma with exacerbation ([facility]) Unspecified asthma, with exacerbation Medicare annual wellness visit, subsequent Severe persistent asthma with acute exacerbation ([facility]/HCC)- Primary Hospital discharge follow-up Other follow-up examination Severe persistent asthma without complication (CMS/HCC)- Primary Essential hypertension ([facility]/HCC) Unspecified essential hypertension JEANNE (acute kidney injury) ([facility]) Leukocytosis, unspecified type Chronic respiratory failure with hypoxia ([facility]/HCC) Chronic bilateral low back pain without sciatica- Primary Vitamin D deficiency Chronic bilateral low back pain without sciatica- Primary Pneumonia due to infectious organism, unspecified laterality, unspecified part of lung- Primary Screening mammogram for breast cancer Chronic respiratory failure with hypoxia (CMS/HCC) Pulmonary emphysema, unspecified emphysema type ([facility]/HCC) Essential hypertension ([facility]/HCC) Unspecified essential hypertension Morbid obesity with BMI of 40.0-44.9, adult ([facility] [facility]) Hospital discharge follow-up- Primary Other follow-up [...] with hypoxia (CMS/HCC) documented in this encounter [facility]* Diagnosis Moderate persistent asthma with [...] 40.0-44.9, adult ([facility]/HCC) Hospital discharge follow-up- Primary Other follow-up examination [...] 40.0-44.9, adult ([facility]) Opioid use Chronic, continuous use of opioids Chronic back pain greater than 3 months duration Urge incontinence- Primary Morbid obesity with BMI of 40.0-44.9, adult ([facility]) 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 Stage 3a chronic kidney disease (HCC) ([facility]/HCC) Chronic respiratory failure with hypoxia ([facility]/HCC) Neoplasm of unspecified behavior of bone, soft tissue, and skin- Primary documented in this encounter [facility]* Diagnosis Moderate persistent asthma with exacerbation ([facility]/HCC)- Primary Unspecified asthma, with exacerbation Non-recurrent acute suppurative otitis media of both ears without spontaneous rupture of tympanic membranes Colorectal cancer ([facility]/HCC) Malignant neoplasm of colon, unspecified site Chronic heart failure with preserved ejection fraction ([facility]/HCC) Pulmonary emphysema, unspecified emphysema type ([facility]/HCC) Moderate episode of recurrent major depressive disorder ([facility]/HCC)- Primary Moderate persistent asthma with exacerbation ([facility]/HCC) Unspecified asthma, with exacerbation Medicare annual wellness visit, subsequent Severe persistent asthma with acute exacerbation ([facility]/HCC)- Primary Hospital discharge follow-up Other follow-up examination Severe persistent asthma without complication (CMS/HCC)- Primary Essential hypertension (CMS/HCC) Unspecified essential hypertension JEANNE (acute kidney injury) ([facility]/HCC) Leukocytosis, unspecified type Chronic respiratory failure with [...] 40.0-44.9, adult ([facility]) Hospital discharge follow-up- Primary Other follow-up [...] essential HTN ([facility]/HCC) Chronic heart failure with preserved ejection fraction (CMS/HCC) Severe persistent asthma without complication (CMS/HCC) Moderate mixed hyperlipidemia not requiring statin therapy ([facility]/HCC) Morbid obesity with BMI of 40.0-44.9, adult ([facility]) Opioid use Chronic, continuous use of opioids Chronic back pain greater than 3 months duration Urge incontinence- Primary Morbid obesity with BMI of 40.0-44.9, adult ([facility] 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 Stage 3a chronic kidney disease (HCC) ([facility]) Chronic respiratory failure with hypoxia ([facility]) Urge incontinence documented in this encounter [facility]* Diagnosis Moderate persistent asthma with exacerbation (CMS/HCC)- Primary Unspecified asthma, with exacerbation Non-recurrent acute suppurative otitis media of both ears without spontaneous rupture of tympanic membranes Colorectal cancer ([facility]) Malignant neoplasm of colon, unspecified site Chronic heart failure with preserved ejection fraction (CMS/HCC) Pulmonary emphysema, unspecified emphysema type (CMS/HCC) Moderate episode of recurrent major depressive disorder (CMS/HCC)- Primary Moderate persistent asthma with exacerbation ([facility]/HCC) Unspecified asthma, with exacerbation Medicare annual wellness visit, subsequent Severe persistent asthma with acute exacerbation (CMS/HCC)- Primary Hospital discharge follow-up Other follow-up examination Severe persistent asthma without complication (CMS/HCC)- Primary Essential hypertension (CMS/HCC) Unspecified essential hypertension JEANNE (acute kidney injury) ([facility]) Leukocytosis, unspecified type Chronic respiratory failure [...] 40.0-44.9, adult ([facility]) Hospital discharge follow-up- Primary Other follow-up [...] statin therapy ([facility]/HCC) Morbid obesity with BMI of 40.0-44.9, adult ([facility]) Opioid use Chronic, continuous use of opioids Chronic back pain greater than 3 months duration Urge incontinence- Primary Morbid obesity with BMI of 40.0-44.9, adult ([facility]) 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 Stage 3a chronic kidney disease (HCC) ([facility]/HCC) Chronic respiratory failure with hypoxia (CMS/HCC) Moderate episode of recurrent major depressive disorder (CMS/HCC) documented in this encounter [facility]* Diagnosis Benign essential HTN (CMS/HCC)- Primary Chronic heart failure with preserved ejection fraction (CMS/HCC) Severe persistent asthma without complication (CMS/HCC) Moderate mixed hyperlipidemia not requiring statin therapy (CMS/HCC) Morbid obesity with BMI of 40.0-44.9, adult ([facility]) documented in this encounter [facility]* Diagnosis Chronic bilateral low back pain without sciatica documented in this encounter [facility]* Diagnosis Moderate episode of recurrent major depressive disorder (HCC) ([facility]) Urge incontinence documented in this encounter [facility]* Diagnosis Moderate persistent asthma with exacerbation ([facility]/HCC)- Primary Unspecified asthma, with exacerbation Non-recurrent acute [...] 40.0-44.9, adult ([facility]) Hospital discharge follow-up- Primary Other follow-up [...] 40.0-44.9, adult ([facility]) Opioid use Chronic, continuous use of opioids Chronic back pain greater than 3 months duration Urge incontinence- Primary Morbid obesity with BMI of 40.0-44.9, adult ([facility]/HCC) 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 Stage 3a chronic kidney disease (HCC) (CMS/HCC) Chronic respiratory failure with hypoxia (CMS/HCC) Moderate episode of recurrent major depressive disorder ([facility]/HCC) Restless leg syndrome Restless legs syndrome (RLS) documented in this encounter [facility]* Diagnosis Moderate persistent asthma with exacerbation ([facility]/HCC)- Primary Unspecified asthma, with exacerbation Non-recurrent acute suppurative otitis media of both ears without spontaneous rupture of tympanic membranes Colorectal cancer ([facility]/HCC) Malignant neoplasm of colon, unspecified site Chronic heart failure with preserved ejection fraction ([facility]/HCC) Pulmonary emphysema, unspecified emphysema type ([facility]/HCC) Moderate episode of recurrent major depressive disorder ([facility]/HCC)- Primary Moderate persistent asthma with exacerbation ([facility]/HCC) Unspecified asthma, with exacerbation Medicare annual wellness visit, subsequent Severe persistent asthma with acute exacerbation ([facility]/HCC)- Primary Hospital discharge follow-up Other follow-up examination Severe persistent asthma without complication ([facility]/HCC)- Primary Essential hypertension ([facility]) Unspecified essential hypertension JEANNE (acute kidney injury) ([facility]) Leukocytosis, unspecified type Chronic respiratory failure with hypoxia ([facility]) Chronic bilateral low back pain without sciatica- Primary Vitamin D deficiency Chronic bilateral low back pain without sciatica- Primary Pneumonia due to infectious organism, unspecified laterality, unspecified part of lung- Primary Screening mammogram for breast cancer Chronic respiratory failure with hypoxia ([facility]) Pulmonary emphysema, unspecified emphysema type ([facility] Essential hypertension ([facility]) Unspecified essential hypertension Morbid obesity with BMI of 40.0-44.9, adult ([facility]) Hospital discharge follow-up- Primary Other follow-up examination Chronic respiratory failure with hypoxia ([facility]) Severe persistent asthma without complication ([facility]/HCC) Severe persistent asthma with acute exacerbation ([facility])- Primary Severe persistent asthma with exacerbation ([facility])- Primary Unspecified asthma, with exacerbation Hospital discharge follow-up- Primary Other follow-up examination Chronic respiratory failure with hypoxia ([facility])- Primary Hospital discharge follow-up Other follow-up examination Benign essential HTN ([facility]) Chronic heart failure with preserved ejection fraction ([facility]/HCC) Severe persistent asthma without complication ([facility]/HCC) Moderate mixed hyperlipidemia not requiring statin therapy ([facility]) Morbid obesity with BMI of 40.0-44.9, adult ([facility]) Opioid use Chronic, continuous use of opioids Chronic back pain greater than 3 months duration Urge incontinence- Primary Morbid obesity with BMI of 40.0-44.9, adult ([facility]) 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 Stage 3a chronic kidney disease (HCC) (CMS/HCC) Chronic respiratory failure with hypoxia (CMS/HCC) Chronic obstructive pulmonary disease with acute lower respiratory infection (CMS/HCC)- Primary Primary HSV infection of mouth documented in this encounter [facility]* Diagnosis Moderate persistent asthma with [...] kidney injury) ([facility]) Leukocytosis, unspecified type Chronic respiratory failure [...] Essential hypertension ([facility]/HCC) Unspecified essential hypertension Morbid obesity with BMI of 40.0-44.9, adult ([facility]) Hospital discharge follow-up- Primary Other follow-up examination Chronic respiratory failure with hypoxia (CMS/HCC) Severe persistent asthma without complication (CMS/HCC) Severe persistent asthma with acute exacerbation (CMS/HCC)- Primary Severe persistent asthma with exacerbation ([facility]/HCC)- Primary Unspecified asthma, with exacerbation Hospital discharge follow-up- Primary Other follow-up examination Chronic respiratory failure with hypoxia ([facility]/HCC)- Primary Hospital discharge follow-up Other follow-up examination Benign essential HTN (CMS/HCC) Chronic heart failure with preserved ejection fraction (CMS/HCC) Severe persistent asthma without complication (CMS/HCC) Moderate mixed hyperlipidemia not requiring statin therapy ([facility]/HCC) Morbid obesity with BMI of 40.0-44.9, adult ([facility]/HCC) Opioid use Chronic, continuous use of opioids [...] type (CMS/HCC)- Primary documented in this encounter [facility]* Diagnosis Moderate persistent asthma with [...] 40.0-44.9, adult ([facility]) Hospital discharge follow-up- Primary Other follow-up [...] without complication ([facility]/HCC) Moderate mixed hyperlipidemia not requiring statin therapy ([facility]/HCC) Morbid obesity with BMI of 40.0-44.9, adult ([facility]) Opioid use Chronic, continuous use of opioids Chronic back pain greater than 3 months duration Urge incontinence- Primary Morbid obesity with BMI of 40.0-44.9, adult ([facility]) 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 Stage 3a chronic kidney disease (HCC) ([facility] Chronic respiratory failure with hypoxia ([facility]) Chronic obstructive pulmonary disease with acute lower respiratory infection ([facility])- Primary Primary HSV infection of mouth Pulmonary emphysema, unspecified emphysema type ([facility])- Primary Gastroesophageal reflux disease without esophagitis Esophageal reflux documented in this encounter [facility]* Diagnosis Moderate persistent asthma with exacerbation ([facility])- Primary Unspecified asthma, with exacerbation Non-recurrent acute suppurative otitis media of both ears without spontaneous rupture of tympanic membranes Colorectal cancer ([facility]) Malignant neoplasm of colon, unspecified site Chronic heart failure with preserved ejection fraction ([facility]/HCC) Pulmonary emphysema, unspecified emphysema type ([facility]/HCC) Moderate episode of recurrent major depressive disorder ([facility])- Primary Moderate persistent asthma with exacerbation ([facility]) Unspecified asthma, with exacerbation Medicare annual wellness visit, subsequent Severe persistent asthma with acute exacerbation ([facility])- Primary Hospital discharge follow-up Other follow-up examination Severe persistent asthma without complication ([facility]/HCC)- Primary Essential hypertension ([facility]) Unspecified essential hypertension JEANNE (acute kidney injury) ([facility]) Leukocytosis, unspecified type Chronic respiratory failure with hypoxia ([facility]) Chronic bilateral low back pain without sciatica- Primary Vitamin D deficiency Chronic bilateral low back pain without sciatica- Primary Pneumonia due to infectious organism, unspecified laterality, unspecified part of lung- Primary Screening mammogram for breast cancer Chronic respiratory failure with hypoxia (CMS/HCC) Pulmonary emphysema, unspecified emphysema type ([facility]/HCC) Essential hypertension ([facility]/HCC) Unspecified essential hypertension Morbid obesity with BMI of 40.0-44.9, adult ([facility]) Hospital discharge follow-up- Primary Other follow-up examination Chronic respiratory failure with hypoxia (CMS/HCC) Severe persistent asthma without complication ([facility]/HCC) Severe persistent asthma with acute exacerbation (CMS/HCC)- Primary Severe persistent asthma with exacerbation ([facility]/HCC)- Primary Unspecified asthma, with exacerbation Hospital discharge follow-up- Primary Other follow-up examination Chronic respiratory failure with hypoxia ([facility]/HCC)- Primary Hospital discharge follow-up Other follow-up examination Benign essential HTN ([facility]/HCC) Chronic heart failure with preserved ejection fraction (CMS/HCC) Severe persistent asthma without complication (CMS/HCC) Moderate mixed hyperlipidemia not requiring statin therapy ([facility]/HCC) Morbid obesity with BMI of 40.0-44.9, adult ([facility]) Opioid use Chronic, continuous use of opioids Chronic back pain greater than 3 months duration Urge incontinence- Primary Morbid obesity with BMI of 40.0-44.9, adult ([facility]) 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 Stage 3a chronic kidney disease (HCC) ([facility]) Chronic respiratory failure with hypoxia ([facility]) Chronic obstructive pulmonary disease with acute lower respiratory infection ([facility])- Primary Primary HSV infection of mouth Pulmonary emphysema, unspecified emphysema type ([facility])- Primary Restless leg syndrome Restless legs syndrome (RLS) documented in this encounter [facility]* Diagnosis Moderate persistent asthma with exacerbation ([facility]/HCC)- Primary Unspecified asthma, with exacerbation Non-recurrent acute suppurative otitis media of both ears without spontaneous rupture of tympanic membranes Colorectal cancer ([facility]) Malignant neoplasm of colon, unspecified site Chronic heart failure with preserved ejection fraction ([facility]) Pulmonary emphysema, unspecified emphysema type ([facility]/HCC) Moderate episode of recurrent major depressive disorder ([facility])- Primary Moderate persistent asthma with exacerbation ([facility]) Unspecified asthma, with exacerbation Medicare annual wellness visit, subsequent Severe persistent asthma with acute exacerbation ([facility]/HCC)- Primary Hospital discharge follow-up Other follow-up examination Severe persistent asthma without complication ([facility]/HCC)- Primary Essential hypertension ([facility]/HCC) Unspecified essential hypertension JEANNE (acute kidney injury) ([facility]) Leukocytosis, unspecified type Chronic respiratory failure with hypoxia ([facility]/HCC) Chronic bilateral low back pain without sciatica- Primary Vitamin D deficiency Chronic bilateral low back pain without sciatica- Primary Pneumonia due to infectious organism, unspecified laterality, unspecified part of lung- Primary Screening mammogram for breast cancer Chronic respiratory failure with hypoxia (CMS/HCC) Pulmonary emphysema, unspecified emphysema type ([facility]/HCC) Essential hypertension (CMS/HCC) Unspecified essential hypertension Morbid obesity with BMI of 40.0-44.9, adult ([facility]) Hospital discharge follow-up- Primary Other follow-up [...] 40.0-44.9, adult ([facility]) Opioid use Chronic, continuous use of opioids Chronic back pain greater than 3 months duration Urge incontinence- Primary Morbid obesity with BMI of 40.0-44.9, adult ([facility]) 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 Stage 3a chronic kidney disease (HCC) (CMS/HCC) Chronic respiratory failure with hypoxia (CMS/HCC) Chronic obstructive pulmonary disease with acute lower respiratory infection ([facility]/HCC)- Primary Primary HSV infection of mouth Pulmonary emphysema, unspecified emphysema type (CMS/HCC)- Primary Nevus lipomatosus cutaneus superficialis- Primary Lipoma of other skin and subcutaneous tissue Squamous cell carcinoma of skin of chest documented in this encounter [facility] HealthcareEvaluation note* Diagnosis Moderate persistent asthma [...] 40.0-44.9, adult ([facility]) Hospital discharge follow-up- Primary Other follow-up [...] essential HTN ([facility]/HCC) Chronic heart failure with preserved ejection fraction (CMS/HCC) Severe persistent asthma without complication (CMS/HCC) Moderate mixed hyperlipidemia not requiring statin therapy (CMS/HCC) Morbid obesity with BMI of 40.0-44.9, adult ([facility]) Opioid use Chronic, continuous use of opioids Chronic back pain greater than 3 months duration Urge incontinence- Primary Morbid obesity with BMI of 40.0-44.9, adult ([facility]) 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 Stage 3a chronic kidney disease (HCC) (CMS/HCC) Chronic respiratory failure with hypoxia ([facility]/HCC) Chronic obstructive pulmonary disease with acute lower respiratory infection ([facility]/HCC)- Primary Primary HSV infection of mouth Pulmonary [...] hypertension JEANNE (acute kidney injury) (CMS/[facility]) Leukocytosis, unspecified type Chronic respiratory failure with hypoxia (CMS/HCC) Chronic bilateral low back pain without sciatica- Primary Vitamin D deficiency Chronic bilateral low back pain without sciatica- Primary Pneumonia due to infectious organism, unspecified laterality, unspecified part of lung- Primary Screening mammogram for breast cancer Chronic respiratory failure with hypoxia (CMS/HCC) Pulmonary emphysema, unspecified emphysema type ([facility]/HCC) Essential hypertension ([facility]/HCC) Unspecified essential hypertension Morbid obesity with BMI of 40.0-44.9, adult ([facility]) Hospital discharge follow-up- Primary Other follow-up examination Chronic respiratory failure with hypoxia (CMS/HCC) Severe persistent asthma without complication (CMS/HCC) Severe persistent asthma with acute exacerbation (CMS/HCC)- Primary Severe persistent asthma with exacerbation (CMS/HCC)- Primary Unspecified asthma, with exacerbation Hospital discharge follow-up- Primary Other follow-up examination Chronic respiratory failure with hypoxia ([facility]/HCC)- Primary Hospital discharge follow-up Other follow-up examination Benign essential HTN ([facility]) Chronic heart failure with preserved ejection fraction (CMS/HCC) Severe persistent asthma without complication (CMS/HCC) Moderate mixed hyperlipidemia not requiring statin therapy ([facility]) Morbid obesity with BMI of 40.0-44.9, adult ([facility]) Opioid use Chronic, continuous use of opioids Chronic back pain greater than 3 months duration Urge incontinence- Primary Morbid obesity with BMI of 40.0-44.9, adult ([facility]) 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 Stage 3a chronic kidney disease (HCC) ([facility]/HCC) Chronic respiratory failure with hypoxia ([facility]/HCC) Chronic obstructive pulmonary disease with acute lower respiratory infection ([facility]/HCC)- Primary Primary HSV infection of mouth Pulmonary emphysema, unspecified emphysema type (CMS/HCC)- Primary Acute pain of right knee- Primary History of total right knee replacement Right hip pain Pain in joint, pelvic region and thigh Arthritis of right hip documented in this encounter [facility] HealthcareEvaluation note* Diagnosis Moderate persistent asthma with exacerbation ([facility]/HCC)- Primary Unspecified asthma, with exacerbation Non-recurrent acute suppurative otitis media of both ears without spontaneous rupture of tympanic membranes Colorectal cancer ([facility]/HCC) Malignant neoplasm of colon, unspecified site Chronic heart failure with preserved ejection fraction (CMS/HCC) Pulmonary emphysema, unspecified emphysema type (CMS/HCC) Moderate episode of recurrent major depressive disorder ([facility]/HCC)- Primary Moderate persistent asthma with exacerbation ([facility]/HCC) Unspecified asthma, with exacerbation Medicare annual wellness visit, subsequent Severe persistent asthma with acute exacerbation (CMS/HCC)- Primary Hospital discharge follow-up Other follow-up examination Severe persistent asthma without complication (CMS/HCC)- Primary Essential hypertension ([facility]/HCC) Unspecified essential hypertension JEANNE (acute kidney injury) ([facility]) Leukocytosis, unspecified type Chronic respiratory failure with hypoxia (CMS/[facility]) Chronic bilateral low back pain without sciatica- Primary Vitamin D deficiency Chronic bilateral low back pain without sciatica- Primary Pneumonia due to infectious organism, unspecified laterality, unspecified part of lung- Primary Screening mammogram for breast cancer Chronic respiratory failure with hypoxia (CMS/[facility]) Pulmonary emphysema, unspecified emphysema type ([facility] Essential hypertension ([facility] Unspecified essential hypertension Morbid obesity with BMI of 40.0-44.9, adult ([facility]) Hospital discharge follow-up- Primary Other follow-up examination Chronic respiratory failure with hypoxia (CMS/HCC) Severe persistent asthma without complication (CMS/HCC) Severe persistent asthma with acute exacerbation ([facility]/HCC)- Primary Severe persistent asthma with exacerbation ([facility]/HCC)- Primary Unspecified asthma, with exacerbation Hospital discharge follow-up- Primary Other follow-up examination Chronic respiratory failure with hypoxia ([facility])- Primary Hospital discharge follow-up Other follow-up examination Benign essential HTN ([facility]) Chronic heart failure with preserved ejection fraction ([facility]/HCC) Severe persistent asthma without complication ([facility]/HCC) Moderate mixed hyperlipidemia not requiring statin therapy ([facility]) Morbid obesity with BMI of 40.0-44.9, adult ([facility]) Opioid use Chronic, continuous use of opioids Chronic back pain greater than 3 months duration Urge incontinence- Primary Morbid obesity with BMI of 40.0-44.9, adult ([facility]) Neoplasm of uncertain behavior of chest [...] of skin Lentigines documented in this encounter [facility] HealthcareEvaluation note* Diagnosis Moderate episode of [...] 40.0-44.9, adult ([facility]) Hospital discharge follow-up- Primary Other follow-up [...] 40.0-44.9, adult ([facility]/HCC) Opioid use Chronic, continuous use of opioids Chronic back pain greater than 3 months duration Urge incontinence- Primary Morbid obesity with BMI of 40.0-44.9, adult ([facility]/HCC) 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 Stage 3a chronic kidney disease (HCC) (CMS/HCC) Chronic respiratory failure with hypoxia (CMS/HCC) Chronic obstructive pulmonary disease with acute lower respiratory infection (CMS/HCC)- Primary Primary HSV infection of mouth Pulmonary emphysema, unspecified emphysema type (CMS/HCC)- Primary Flu-like symptoms- Primary Morbid (severe) obesity due to excess calories (CMS/HCC) Body mass index (BMI) 40.0-44.9, adult ([facility]) Pulmonary emphysema, unspecified emphysema type (CMS/HCC) Chronic respiratory failure with hypoxia (CMS/HCC) Essential hypertension ([facility]/HCC) Unspecified essential hypertension documented in this encounter [facility] HealthcareEvaluation note* Diagnosis Moderate episode of recurrent major depressive disorder (CMS/HCC)- Primary Moderate persistent asthma with exacerbation (CMS/HCC) Unspecified asthma, with exacerbation Medicare annual wellness visit, subsequent Severe persistent asthma with acute exacerbation (CMS/HCC)- Primary Hospital discharge follow-up Other follow-up examination Severe persistent asthma without complication (CMS/HCC)- Primary Essential hypertension (CMS/HCC) Unspecified essential hypertension JEANNE (acute kidney injury) (CMS/[facility]) Leukocytosis, unspecified type Chronic respiratory failure [...] 40.0-44.9, adult ([facility]) Hospital discharge follow-up- Primary Other follow-up [...] 40.0-44.9, adult ([facility]) Opioid use Chronic, continuous use of opioids Chronic back pain greater than 3 months duration Urge incontinence- Primary Morbid obesity with BMI of 40.0-44.9, adult ([facility]/HCC) 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 Stage 3a chronic kidney disease (HCC) (CMS/HCC) Chronic respiratory failure with hypoxia (CMS/HCC) Chronic obstructive pulmonary disease with acute lower respiratory infection (CMS/HCC)- Primary Primary HSV infection of mouth Pulmonary emphysema, unspecified emphysema type (CMS/HCC)- Primary Flu-like symptoms- Primary Morbid (severe) obesity due to excess calories (CMS/HCC) Body mass index (BMI) 40.0-44.9, adult ([facility]/HCC) Pulmonary emphysema, unspecified emphysema type (CMS/HCC) Chronic respiratory failure with hypoxia (CMS/HCC) Essential hypertension (CMS/HCC) Unspecified essential hypertension Pneumonia due to infectious organism, unspecified laterality, unspecified part of lung- Primary documented in this encounter [facility] HealthcareEvaluation note* Diagnosis Moderate episode of recurrent major depressive disorder (CMS/HCC)- Primary Moderate persistent asthma with exacerbation (CMS/[facility]) Unspecified asthma, with exacerbation Medicare annual [...] 40.0-44.9, adult ([facility]) Hospital discharge follow-up- Primary Other follow-up [...] 40.0-44.9, adult ([facility]) Opioid use Chronic, continuous use of opioids Chronic back pain greater than 3 months duration Urge incontinence- Primary Morbid obesity with BMI of 40.0-44.9, adult ([facility]) 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 Stage 3a chronic kidney disease (HCC) ([facility]/HCC) Chronic respiratory failure with hypoxia ([facility]) Chronic obstructive pulmonary disease with acute lower respiratory infection ([facility])- Primary Primary HSV infection of mouth Pulmonary emphysema, unspecified emphysema type ([facility]/HCC)- Primary Flu-like symptoms- Primary Morbid (severe) obesity due to excess calories ([facility]) Body mass index (BMI) 40.0-44.9, adult ([facility]) Pulmonary emphysema, unspecified emphysema type ([facility]/HCC) Chronic respiratory failure with hypoxia (CMS/HCC) Essential hypertension ([facility]/HCC) Unspecified essential hypertension Pneumonia due to infectious organism, unspecified laterality, unspecified part of lung- Primary Pneumonia due to infectious organism, unspecified laterality, unspecified part of lung- Primary Chronic respiratory failure with hypoxia ([facility]/HCC) Severe persistent asthma, uncomplicated (CMS/[facility]) Chronic heart failure with preserved ejection fraction (CMS/HCC) Essential hypertension ([facility]/HCC) Unspecified essential hypertension Other secondary pulmonary hypertension ([facility]/HCC) Chronic kidney disease, stage 3a (HCC) ([facility]) Morbid (severe) obesity due to excess calories ([facility]) Screening mammogram for breast cancer Moderate episode of recurrent major depressive disorder (CMS/HCC) documented in this encounter [facility] HealthcareEvaluation note* Diagnosis Moderate episode of recurrent major depressive disorder ([facility]/HCC)- Primary Moderate persistent asthma with exacerbation ([facility]) Unspecified asthma, with exacerbation Medicare annual wellness visit, subsequent Severe persistent asthma with acute exacerbation (CMS/HCC)- Primary Hospital discharge follow-up Other follow-up examination Severe persistent asthma without complication (CMS/HCC)- Primary Essential hypertension (CMS/HCC) Unspecified essential hypertension JEANNE (acute kidney injury) (CMS/[facility]) Leukocytosis, unspecified type Chronic respiratory failure [...] with BMI of 40.0-44.9, adult (CMS/[facility]) Hospital discharge follow-up- Primary Other follow-up [...] with BMI of 40.0-44.9, adult (CMS/[facility]) Opioid use Chronic, continuous use of opioids Chronic back pain greater than 3 months duration Urge incontinence- Primary Morbid obesity with BMI of 40.0-44.9, adult ([facility]) 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 Stage 3a chronic kidney disease (HCC) (CMS/HCC) Chronic respiratory failure with hypoxia (CMS/HCC) Chronic obstructive pulmonary disease with acute lower respiratory infection ([facility]/HCC)- Primary Primary HSV infection of mouth Pulmonary emphysema, unspecified emphysema type (CMS/HCC)- Primary Flu-like symptoms- Primary Morbid (severe) obesity due to excess calories (CMS/HCC) Body mass index (BMI) 40.0-44.9, adult ([facility]) Pulmonary emphysema, unspecified emphysema type (CMS/HCC) Chronic [...] with hypoxia (CMS/HCC) Severe persistent asthma, uncomplicated ([facility]/HCC) Gastroesophageal reflux disease, unspecified whether esophagitis present Morbid (severe) obesity due to excess calories ([facility]/HCC) RLS (restless legs syndrome) Restless legs syndrome (RLS) Candidiasis documented in this encounter [facility] HealthcareEvaluation note* Diagnosis Moderate episode of recurrent major depressive disorder (CMS/HCC)- Primary Moderate persistent asthma with exacerbation ([facility]) Unspecified asthma, with exacerbation Medicare annual wellness visit, subsequent Severe persistent asthma with acute exacerbation ([facility]/HCC)- Primary Hospital discharge follow-up Other follow-up examination Severe persistent asthma without complication (CMS/HCC)- Primary Essential hypertension (CMS/HCC) Unspecified essential hypertension JEANNE (acute kidney injury) ([facility]) Leukocytosis, unspecified type Chronic respiratory failure with hypoxia ([facility]/HCC) Chronic bilateral low back pain without sciatica- Primary Vitamin D deficiency Chronic bilateral low back pain without sciatica- Primary Pneumonia due to infectious organism, unspecified laterality, unspecified part of lung- Primary Screening mammogram for breast cancer Chronic respiratory failure with hypoxia ([facility]) Pulmonary emphysema, unspecified emphysema type ([facility]/HCC) Essential hypertension ([facility]/HCC) Unspecified essential hypertension Morbid obesity with BMI of 40.0-44.9, adult ([facility]) Hospital discharge follow-up- Primary Other follow-up examination Chronic respiratory failure with hypoxia ([facility]/HCC) Severe persistent asthma without complication ([facility]/HCC) Chronic respiratory failure with hypoxia ([facility]/HCC)- Primary Hospital discharge follow-up Other follow-up examination Benign essential HTN ([facility]) Chronic heart failure with preserved ejection fraction ([facility]) Severe persistent asthma without complication ([facility]/HCC) Moderate mixed hyperlipidemia not requiring statin therapy ([facility]) Morbid obesity with BMI of 40.0-44.9, adult ([facility]) Opioid use Chronic, continuous use of opioids Chronic back pain greater than 3 months duration Urge incontinence- Primary Morbid obesity with BMI of 40.0-44.9, adult ([facility]) 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 Stage 3a chronic kidney disease (HCC) ([facility]/HCC) Chronic respiratory failure with hypoxia ([facility]) Chronic obstructive pulmonary disease with acute lower respiratory infection ([facility]/HCC)- Primary Primary HSV infection of mouth Pulmonary emphysema, unspecified emphysema type ([facility]/HCC)- Primary Flu-like symptoms- Primary Morbid (severe) obesity due to excess calories (CMS/HCC) Body mass index (BMI) 40.0-44.9, adult ([facility]) Pulmonary emphysema, unspecified emphysema type (CMS/HCC) Chronic [...] hypertension Chronic kidney disease, stage 3a (HCC) ([facility]) Morbid (severe) obesity due to excess calories ([facility]) Screening mammogram for breast cancer Moderate episode of recurrent major depressive disorder ([facility]) Edema of both lower extremities- Primary Spinal stenosis, lumbar region without neurogenic claudication Chronic heart failure with preserved ejection fraction (CMS/HCC) Chronic respiratory failure with hypoxia ([facility]/HCC) Severe persistent asthma, uncomplicated ([facility]) Gastroesophageal reflux disease, unspecified whether esophagitis present Morbid (severe) obesity due to excess calories ([facility]) RLS (restless legs syndrome) Restless legs syndrome (RLS) Candidiasis Gastroesophageal reflux disease without esophagitis Esophageal reflux documented in this encounter [facility] HealthcareEvaluation note* Diagnosis Moderate episode of recurrent major depressive disorder ([facility]/HCC)- Primary Moderate persistent asthma with exacerbation ([facility]) Unspecified asthma, with exacerbation Medicare annual wellness visit, subsequent Severe persistent asthma with acute exacerbation ([facility])- Primary Hospital discharge follow-up Other follow-up examination Severe persistent asthma without complication (CMS/HCC)- Primary Essential hypertension (CMS/HCC) Unspecified essential hypertension JEANNE (acute kidney injury) (CMS/[facility]) Leukocytosis, unspecified type Chronic respiratory failure [...] Essential hypertension ([facility]/HCC) Unspecified essential hypertension Morbid obesity with BMI of 40.0-44.9, adult ([facility]) Hospital discharge follow-up- Primary Other follow-up [...] 40.0-44.9, adult ([facility]) 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 Stage 3a chronic kidney disease (HCC) (CMS/HCC) Chronic respiratory failure with hypoxia (CMS/HCC) Chronic obstructive pulmonary disease with acute lower respiratory infection ([facility] [facility] Primary Primary HSV infection of mouth Pulmonary emphysema, unspecified emphysema type ([facility])- Primary Flu-like symptoms- Primary Morbid (severe) obesity due to excess calories ([facility]/HCC) Body mass index (BMI) 40.0-44.9, adult ([facility]) Pulmonary emphysema, unspecified emphysema type (CMS/HCC) Chronic respiratory failure with hypoxia (CMS/HCC) Essential hypertension ([facility]) Unspecified essential hypertension Pneumonia due to infectious organism, unspecified laterality, unspecified part of lung- Primary Pneumonia due to infectious organism, unspecified laterality, unspecified part of lung- Primary Chronic respiratory failure with hypoxia (CMS/HCC) Severe persistent asthma, uncomplicated (CMS/HCC) Chronic heart failure with preserved ejection fraction (CMS/HCC) Essential hypertension ([facility]/HCC) Unspecified essential hypertension Other secondary pulmonary hypertension Chronic kidney disease, stage 3a (HCC) ([facility]/HCC) Morbid (severe) obesity due to excess calories ([facility]) Screening mammogram for breast cancer Moderate episode [...] of recurrent major depressive disorder (CMS/HCC)- Primary Pulmonary emphysema, unspecified emphysema type (CMS/HCC) Chronic respiratory failure with hypoxia (CMS/HCC) Morbid (severe) obesity due to excess calories ([facility]) Restless leg syndrome Restless legs syndrome (RLS) documented in this encounter [facility] HealthcareEvaluation note* Diagnosis Moderate episode of [...] 40.0-44.9, adult ([facility]) Hospital discharge follow-up- Primary Other follow-up [...] 40.0-44.9, adult ([facility]) Opioid use Chronic, continuous use of opioids Chronic back pain greater than 3 months duration Urge incontinence- Primary Morbid obesity with BMI of 40.0-44.9, adult ([facility]) 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 Stage 3a chronic kidney disease ([facility]) Chronic respiratory failure with hypoxia (HCC) Chronic obstructive pulmonary disease with acute lower respiratory infection (HCC)- Primary Primary HSV infection of mouth Pulmonary emphysema, unspecified emphysema type (HCC)- Primary Flu-like symptoms- Primary Morbid (severe) obesity due to excess calories ([facility]) Body mass index (BMI) 40.0-44.9, adult ([facility]) Pulmonary emphysema, unspecified emphysema type (HCC) Chronic [...] hypertension (HCC) Chronic kidney disease, stage 3a ([facility]) Morbid (severe) obesity due to excess calories ([facility]) Screening mammogram for breast cancer Moderate episode of recurrent major depressive disorder (HCC) Edema of both lower extremities- Primary Spinal stenosis, lumbar region without neurogenic claudication Chronic heart failure with preserved ejection fraction (HCC) Chronic respiratory failure with hypoxia (HCC) Severe persistent asthma, uncomplicated (HCC) Gastroesophageal reflux disease, unspecified whether esophagitis present Morbid (severe) obesity due to excess calories ([facility]) RLS (restless legs syndrome) Restless legs syndrome (RLS) Candidiasis Moderate episode of recurrent major depressive disorder (HCC)- Primary Pulmonary emphysema, unspecified emphysema type (HCC) Chronic respiratory failure with hypoxia (HCC) Morbid (severe) obesity due to excess calories ([facility]) Restless leg syndrome Restless legs syndrome (RLS) Moderate episode of recurrent major depressive disorder (HCC)- Primary documented in this encounter [facility] [...] 40.0-44.9, adult ([facility]) Hospital discharge follow-up- Primary Other follow-up [...] 40.0-44.9, adult ([facility]) Opioid use Chronic, continuous use of opioids Chronic back pain greater than 3 months duration Urge incontinence- Primary Morbid obesity with BMI of 40.0-44.9, adult ([facility] 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 Stage 3a chronic kidney disease ([facility]) Chronic respiratory failure with hypoxia (HCC) Chronic obstructive pulmonary disease with acute lower respiratory infection (HCC)- Primary Primary HSV infection of mouth Pulmonary emphysema, unspecified emphysema type ([facility])- Primary Flu-like symptoms- Primary Morbid (severe) obesity due to excess calories ([facility]) Body mass index (BMI) 40.0-44.9, adult ([facility]) Pulmonary emphysema, unspecified emphysema type (HCC) Chronic [...] hypertension (HCC) Chronic kidney disease, stage 3a ([facility]) Morbid (severe) obesity due to excess calories ([facility]) Screening mammogram for breast cancer Moderate episode of recurrent major depressive disorder (HCC) Edema of both lower extremities- Primary Spinal stenosis, lumbar region without neurogenic claudication Chronic heart failure with preserved ejection fraction (HCC) Chronic respiratory failure with hypoxia (HCC) Severe persistent asthma, uncomplicated (HCC) Gastroesophageal reflux disease, unspecified whether esophagitis present Morbid (severe) obesity due to excess calories ([facility]) RLS (restless legs syndrome) Restless legs syndrome (RLS) Candidiasis Moderate episode of recurrent major depressive disorder (HCC)- Primary Pulmonary emphysema, unspecified emphysema type (HCC) Chronic respiratory failure with hypoxia (HCC) Morbid (severe) obesity due to excess calories ([facility]) Restless leg syndrome Restless legs syndrome (RLS) Chronic bilateral low back pain without sciatica documented in this encounter [facility] HealthcareEvaluation note* Diagnosis Moderate episode of recurrent [...] obesity with BMI of 40.0-44.9, adult ([facility]) Hospital discharge follow-up- Primary Other follow-up examination [...] obesity with BMI of 40.0-44.9, adult ([facility]) Opioid use Chronic, continuous use of opioids Chronic back pain greater than 3 months duration Urge incontinence- Primary Morbid obesity with BMI of 40.0-44.9, adult ([facility]) 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 Stage 3a chronic kidney disease ([facility] [place]) Chronic respiratory failure with hypoxia ([facility]) Chronic obstructive pulmonary disease with acute lower respiratory infection (HCC)- Primary Primary HSV infection of mouth Pulmonary emphysema, unspecified emphysema type (HCC)- Primary Flu-like symptoms- Primary Morbid (severe) obesity due to excess calories ([facility]) Body mass index (BMI) 40.0-44.9, adult ([facility] [place]) Pulmonary emphysema, unspecified emphysema type (HCC) Chronic [...] hypertension (HCC) Chronic kidney disease, stage 3a ([facility]) Morbid (severe) obesity due to excess calories ([facility]) Screening mammogram for breast cancer Moderate episode of recurrent major depressive disorder (HCC) Edema of both lower extremities- Primary Spinal stenosis, lumbar region without neurogenic claudication Chronic heart failure with preserved ejection fraction (HCC) Chronic respiratory failure with hypoxia (HCC) Severe persistent asthma, uncomplicated (HCC) Gastroesophageal reflux disease, unspecified whether esophagitis present Morbid (severe) obesity due to excess calories ([facility]) RLS (restless legs syndrome) Restless legs syndrome (RLS) Candidiasis Moderate episode of recurrent major depressive disorder (HCC)- Primary Pulmonary emphysema, unspecified emphysema type (HCC) Chronic respiratory failure with hypoxia (HCC) Morbid (severe) obesity due to excess calories ([facility]) Restless leg syndrome Restless legs syndrome (RLS) Restless leg syndrome Restless legs syndrome (RLS) documented in this encounter [facility] HealthcareEvaluation note* Diagnosis Moderate episode of [...] obesity with BMI of 40.0-44.9, adult ([facility]) Hospital discharge follow-up- Primary Other follow-up examination [...] obesity with BMI of 40.0-44.9, adult ([facility]) Opioid use Chronic, continuous use of opioids Chronic back pain greater than 3 months duration Urge incontinence- Primary Morbid obesity with BMI of 40.0-44.9, adult ([facility]) 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 Stage 3a chronic kidney disease ([facility]) Chronic respiratory failure with hypoxia (HCC) Chronic obstructive pulmonary disease with acute lower respiratory infection (HCC)- Primary Primary HSV infection of mouth Pulmonary emphysema, unspecified emphysema type (HCC)- Primary Flu-like symptoms- Primary Morbid (severe) obesity due to excess calories ([facility] [place]) Body mass index (BMI) 40.0-44.9, adult ([facility] [place]) Pulmonary emphysema, unspecified emphysema type (HCC) Chronic respiratory failure with hypoxia (HCC) Essential hypertension Unspecified essential hypertension Pneumonia due to infectious organism, unspecified laterality, unspecified part of lung- Primary Pneumonia due to infectious organism, unspecified laterality, unspecified part of lung- Primary Chronic respiratory failure with hypoxia ([facility]) Severe persistent asthma, uncomplicated (HCC) Chronic heart failure with preserved ejection fraction (HCC) Essential hypertension Unspecified essential hypertension Other secondary pulmonary hypertension ([facility]) Chronic kidney disease, stage 3a ([facility] [place]) Morbid (severe) obesity due to excess calories ([facility] [place]) Screening mammogram for breast cancer Moderate episode of recurrent major depressive disorder ([facility]) Edema of both lower extremities- Primary Spinal stenosis, lumbar region without neurogenic claudication Chronic heart failure with preserved ejection fraction (HCC) Chronic respiratory failure with hypoxia (HCC) Severe persistent asthma, uncomplicated (HCC) Gastroesophageal reflux disease, unspecified whether esophagitis present Morbid (severe) obesity due to excess calories ([facility] [place]) RLS (restless legs syndrome) Restless legs syndrome (RLS) Candidiasis Moderate episode of recurrent major depressive disorder (HCC)- Primary Pulmonary emphysema, unspecified emphysema type (HCC) Chronic respiratory failure with hypoxia (HCC) Morbid (severe) obesity due to excess calories ([facility]) Restless leg syndrome Restless legs syndrome (RLS) Chronic heart failure with preserved ejection fraction (HCC)- Primary Edema of both lower extremities documented in this encounter [facility] HealthcareEvaluation note* Diagnosis Moderate episode of recurrent [...] obesity with BMI of 40.0-44.9, adult ([facility] [place]) Hospital discharge follow-up- Primary Other follow-up examination [...] obesity with BMI of 40.0-44.9, adult ([facility]) Opioid use Chronic, continuous use of opioids Chronic back pain greater than 3 months duration Urge incontinence- Primary Morbid obesity with BMI of 40.0-44.9, adult ([facility] [place]) 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 Stage 3a chronic kidney disease ([facility] [place] Chronic respiratory failure with hypoxia ([facility]) Chronic obstructive pulmonary disease with acute lower respiratory infection (HCC)- Primary Primary HSV infection of mouth Pulmonary emphysema, unspecified emphysema type ([facility])- Primary Flu-like symptoms- Primary Morbid (severe) obesity due to excess calories ([facility]) Body mass index (BMI) 40.0-44.9, adult ([facility]) Pulmonary emphysema, unspecified emphysema type (HCC) Chronic [...] hypertension (HCC) Chronic kidney disease, stage 3a ([facility]) Morbid (severe) obesity due to excess calories ([facility]) Screening mammogram for breast cancer Moderate episode of recurrent major depressive disorder (HCC) Edema of both lower extremities- Primary Spinal stenosis, lumbar region without neurogenic claudication Chronic heart failure with preserved ejection fraction (HCC) Chronic respiratory failure with hypoxia (HCC) Severe persistent asthma, uncomplicated (HCC) Gastroesophageal reflux disease, unspecified whether esophagitis present Morbid (severe) obesity due to excess calories ([facility]) RLS (restless legs syndrome) Restless legs syndrome (RLS) Candidiasis Moderate episode of recurrent major depressive disorder (HCC)- Primary Pulmonary emphysema, unspecified emphysema type (HCC) Chronic respiratory failure with hypoxia (HCC) Morbid (severe) obesity due to excess calories ([facility]) Restless leg syndrome Restless legs syndrome (RLS) Moderate episode of recurrent major depressive disorder (HCC)- Primary Morbid (severe) obesity due to excess calories ([facility]) Candidiasis of breast Skin pustule Unspecified local infection of skin and subcutaneous tissue RLS (restless legs syndrome) Restless legs syndrome (RLS) documented in this encounter [facility] HealthcareEvaluation note* Diagnosis Moderate episode of [...] obesity with BMI of 40.0-44.9, adult ([facility]) Hospital discharge follow-up- Primary Other follow-up examination [...] obesity with BMI of 40.0-44.9, adult ([facility]) Opioid use Chronic, continuous use of opioids Chronic back pain greater than 3 months duration Urge incontinence- Primary Morbid obesity with BMI of 40.0-44.9, adult ([facility]) 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 Stage 3a chronic kidney disease (CMS-HCC) Chronic respiratory failure with hypoxia (HCC) Chronic obstructive pulmonary disease with acute lower respiratory infection (HCC)- Primary Primary HSV infection of mouth Pulmonary emphysema, unspecified emphysema type (HCC)- Primary Flu-like symptoms- Primary Morbid (severe) obesity due to excess calories ([facility]) Body mass index (BMI) 40.0-44.9, adult ([facility]) Pulmonary emphysema, unspecified emphysema type (HCC) Chronic [...] hypertension (HCC) Chronic kidney disease, stage 3a ([facility]) Morbid (severe) obesity due to excess calories ([facility]) Screening mammogram for breast cancer Moderate episode of recurrent major depressive disorder ([facility]) Edema of both lower extremities- Primary Spinal stenosis, lumbar region without neurogenic claudication Chronic heart failure with preserved ejection fraction (HCC) Chronic respiratory failure with hypoxia (HCC) Severe persistent asthma, uncomplicated (HCC) Gastroesophageal reflux disease, unspecified whether esophagitis present Morbid (severe) obesity due to excess calories ([facility]) RLS (restless legs syndrome) Restless legs syndrome (RLS) Candidiasis Moderate episode of recurrent major depressive disorder (HCC)- Primary Pulmonary emphysema, unspecified emphysema type (HCC) Chronic respiratory failure with hypoxia (HCC) Morbid (severe) obesity due to excess calories ([facility]) Restless leg syndrome Restless legs syndrome (RLS) Moderate episode of recurrent major depressive disorder (HCC)- Primary Morbid (severe) obesity due to excess calories ([facility]) Candidiasis of breast Skin pustule Unspecified local infection of skin and subcutaneous tissue RLS (restless legs syndrome) Restless legs syndrome (RLS) Skin pustule Unspecified local infection of skin and subcutaneous tissue documented in this encounter [facility] HealthcareEvaluation note* Diagnosis Moderate episode of recurrent [...] obesity with BMI of 40.0-44.9, adult ([facility]) Hospital discharge follow-up- Primary Other follow-up examination [...] obesity with BMI of 40.0-44.9, adult ([facility]) Opioid use Chronic, continuous use of opioids Chronic back pain greater than 3 months duration Urge incontinence- Primary Morbid obesity with BMI of 40.0-44.9, adult ([facility] [place]) 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 Stage 3a chronic kidney disease ([facility]) Chronic respiratory failure with hypoxia ([facility]) Chronic obstructive pulmonary disease with acute lower respiratory infection (HCC)- Primary Primary HSV infection of mouth Pulmonary emphysema, unspecified emphysema type (HCC)- Primary Flu-like symptoms- Primary Morbid (severe) obesity due to excess calories ([facility]) Body mass index (BMI) 40.0-44.9, adult ([facility] [place]) Pulmonary emphysema, unspecified emphysema type (HCC) Chronic [...] hypertension (HCC) Chronic kidney disease, stage 3a ([facility]) Morbid (severe) obesity due to excess calories ([facility]) Screening mammogram for breast cancer Moderate episode of recurrent major depressive disorder ([facility]) Edema of both lower extremities- Primary Spinal stenosis, lumbar region without neurogenic claudication Chronic heart failure with preserved ejection fraction (HCC) Chronic respiratory failure with hypoxia (HCC) Severe persistent asthma, uncomplicated (HCC) Gastroesophageal reflux disease, unspecified whether esophagitis present Morbid (severe) obesity due to excess calories ([facility]) RLS (restless legs syndrome) Restless legs syndrome (RLS) Candidiasis Moderate episode of recurrent major depressive disorder (HCC)- Primary Pulmonary emphysema, unspecified emphysema type (HCC) Chronic respiratory failure with hypoxia (HCC) Morbid (severe) obesity due to excess calories ([facility]) Restless leg syndrome Restless legs syndrome (RLS) Moderate episode of recurrent major depressive disorder (HCC)- Primary Morbid (severe) obesity due to excess calories ([facility]) Candidiasis of breast Skin pustule Unspecified local infection of skin and subcutaneous tissue RLS (restless legs syndrome) Restless legs syndrome (RLS) Moderate episode of recurrent major depressive disorder (HCC) documented in this encounter [facility] HealthcareEvaluation note* Diagnosis Moderate episode of [...] 40.0-44.9, adult ([facility]) Hospital discharge follow-up- Primary Other follow-up [...] obesity with BMI of 40.0-44.9, adult ([facility]) Opioid use Chronic, continuous use of opioids Chronic back pain greater than 3 months duration Urge incontinence- Primary Morbid obesity with BMI of 40.0-44.9, adult ([facility] [place]) 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 Stage 3a chronic kidney disease ([facility]) Chronic respiratory failure with hypoxia (HCC) Chronic obstructive pulmonary disease with acute lower respiratory infection (HCC)- Primary Primary HSV infection of mouth Pulmonary emphysema, unspecified emphysema type (HCC)- Primary Flu-like symptoms- Primary Morbid (severe) obesity due to excess calories ([facility]) Body mass index (BMI) 40.0-44.9, adult ([facility]) Pulmonary emphysema, unspecified emphysema type (HCC) Chronic [...] hypertension (HCC) Chronic kidney disease, stage 3a ([facility]) Morbid (severe) obesity due to excess calories ([facility]) Screening mammogram for breast cancer Moderate episode of recurrent major depressive disorder ([facility]) Edema of both lower extremities- Primary Spinal stenosis, lumbar region without neurogenic claudication Chronic heart failure with preserved ejection fraction (HCC) Chronic respiratory failure with hypoxia (HCC) Severe persistent asthma, uncomplicated (HCC) Gastroesophageal reflux disease, unspecified whether esophagitis present Morbid (severe) obesity due to excess calories ([facility]) RLS (restless legs syndrome) Restless legs syndrome (RLS) Candidiasis Moderate episode of recurrent major depressive disorder (HCC)- Primary Pulmonary emphysema, unspecified emphysema type (HCC) Chronic respiratory failure with hypoxia (HCC) Morbid (severe) obesity due to excess calories ([facility]) Restless leg syndrome Restless legs syndrome (RLS) Moderate episode of recurrent major depressive disorder (HCC)- Primary Morbid (severe) obesity due to excess calories ([facility]) Candidiasis of breast Skin pustule Unspecified local infection of skin and subcutaneous tissue RLS (restless legs syndrome) Restless legs syndrome (RLS) Seborrheic keratosis- Primary Lentigines History of SCC (squamous cell carcinoma) of skin Personal history of other malignant neoplasm of skin documented in this encounter [facility]* Diagnosis Onset Date Resolution Status Admit Date Chronic respiratory failure acute July 17, 2025 8:49am Essential hypertension acute Se ptember 2024 8:49am Hypokalemia acute July 8:49am Hypomagnesemia acute July 17, 2025 8:49am Major depression, recurrent, chronic acute July 17, 2025 8:49am Morbid obesity due to excess calories acute July 17, 2025 8:49am [facility] Work Phone: [facility] general Narrative - Reported* Type Description Date [...] IN 08/2019 Hospitalization History HIP REVISION 03/2020 [facility] Other [facility] general Narrative - Reported* Type Description Date [...] Hospitalization History COVID X 2 WEEKS 04/2023 [facility] Other Hospital course Narrative No data available for this section [facility] Hospital Discharge instructions Additional [...] if you have any problems. -Office number [phone] Work Phone: Hospital Discharge instructions No data available for this section [facility] Hospital Discharge instructionsAmbulatory Orders* Referral to Pulmonology Time Frame: 07/17/25, Location: None [facility] Work Phone: Progress note No data available for this section [facility] Advance Directives Advance Directive Response Recorded Date/ [...] Eye Cataract September 12, 2024 1 0:31am Chief Complaint Admit Date ^ April 26, 2004 7:04 am ^ May 24, 2004 7:08 am 2M July 17, 2025 8:49am Reason for Visit Admit Date Chronic respiratory failure July 172024 8:49am Essential hypertension July 17, 8:49am Hypokalemia July 17, 2025 8:49am Hypomagnesemia July 17, 2025 8:49am Major depression, recurrent, chronic Sep tember 2024 8:49am Morbid obesity due to excess calories Se ptember 2024 8:49am Assessments No Assessments Information Available Summary Purpose [...] or prosecute any alcohol or drug abuse patient.[facility] HealthIn the event this information is protected by the Federal Confidentiality of Alcohol and Drug Abuse Patient Records regulations: The Federal rules restrict any use of the information to criminally investigate or prosecute any alcohol or drug abuse patient.[facility] HealthIn the event this information is protected by the Federal Confidentiality of Alcohol and Drug Abuse Patient Records regulations: The Federal rules restrict any use of the information to criminally investigate or prosecute any alcohol or drug abuse patient.[facility] HealthIn the event this information is protected by the Federal Confidentiality of Alcohol and Drug Abuse Patient Records regulations: The Federal rules restrict any use of the information to criminally investigate or prosecute any alcohol or drug abuse patient.[facility] INFORMATION SOURCE (unrecogn ized section and content) DATE CREATED AUTHOR 03/03/2022 [facility] DATE CREATED AUTHOR AUTHOR'S ORGANIZ ATION 04/17/[address] [facility] DATE CREATED AUTHOR AUTHOR'S ORGANIZ ATION 10/20/[address] [facility] DATE CREATED AUTHOR AUTHOR'S ORGANIZ ATION 11/18/2024 [facility] DATE CREATED AUTHOR AUTHOR'S ORGANIZ ATION 01/25/2025 [facility] DATE CREATED AUTHOR AUTHOR'S ORGANIZ ATION 03/26/[address] [facility] DATE CREATED AUTHOR AUTHOR'S ORGANIZ ATION 05/22/2025 [facility] DATE CREATED AUTHOR AUTHOR'S ORGANIZ ATION 06/20/2025 [facility] DATE CREATED AUTHOR AUTHOR'S ORGANIZ ATION 07/10/[address] [facility] REASON FOR VISIT (unrecogniz ed section and content) Reason Onset Date Comments Medication Question 08/12/2024 Med Refill 08/12/2024 Reason Onset Date Comments Med Refill 09/03/2024 Reason Comments Med Refill Reason Comments Follow-up She presents today f or a 3 month follow up for her asthma. 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 Procedures LA OFFICE/OUTPATIENT [facility] HIGH MDM Aida Reese, RIKKI [address] [place] [address] Phone: tel: fax: Elena Martinez, FOLEY ARTIST-COMMUNITY DEVELOPMENT AIDE [address] [place] [address] Phone: tel: fax: Referral ID Status Reason Start Date Expiration Date V isits Requested Visits Authorized [id number] Closed Specialty Services Required 10/07/2024 04/05/2025 1 [...] Comments Med Refill 04/29/2025 Reason Comments COPD Reason Comments Skin Check Suspicious Skin Lesion Care Teams (unrecognized sec tion and content) [...] March 14, 2024 End: March 14, 2024 Rig Welder Relationship Specialty Start Date End Date Tapan Zazueta MD [address] [place] [address] PCP - General Family Medicine 06/10/24 Ariella Mathis DO [address] [place] [address] Referring Physician Neurology 01/02/24 Aida Reese NP [address] [place] [address] Nurse Practitioner Family Medicine 06/10/24 Rig Welder Relationship Specialty Start Date End Date Tapan Zazueta MD [address] [place] [address] PCP - General Family Medicine 06/10/24 Ariella Mathis DO [address] [place] [address] Referring Physician Neurology 01/02/24 Aida Reese NP [address] [place] [address] Nurse Practitioner Family Medicine 06/10/24 Rig Welder Relationship Specialty Start Date End Date Tapan Zazueta MD [address] [place] [address] PCP - General Family Medicine 06/10/24 Ariella Mathis DO [address] [place] [address] Referring Physician Neurology 01/02/24 Aida Reese NP [address] [place] [address] Nurse Practitioner Family Medicine 06/10/24 Rig Welder Relationship Specialty Start Date End Date Tapan Zazueta MD [address] [place] [address] PCP - General Family Medicine 06/10/24 Ariella Mathis DO [address] [place] [address] Referring Physician Neurology 01/02/24 Aida Reese NP [address] [place] [address] Nurse Practitioner Family Medicine 06/10/24 Rig Welder Relationship Specialty Start Date End Date Tapan Zazueta MD [address] [place] [address] PCP - General Family Medicine 06/10/24 Ariella Mathis DO [address] [place] [address] Referring Physician Neurology 01/02/24 Aida Reese NP [address] [place] [address] Nurse Practitioner Family Medicine 06/10/24 Team [...] September 05, 2024 End: September 05, 2024 Rig Welder Relationship Specialty Start Date End Date Tapan Zazueta MD [address] [place] [address] PCP - General Family Medicine 06/10/24 Ariella Mathis DO [address] [place] [address] Referring Physician Neurology 01/02/24 Aida Reese NP [address] [place] [address] Nurse Practitioner Family Medicine 06/10/24 Rig Welder Relationship Specialty Start Date End Date Tapan Zazueta MD [address] [place] [address] PCP - General Family Medicine 06/10/24 Ariella Mathis DO [address] [place] [address] Referring Physician Neurology 01/02/24 Aida Reese NP [address] [place] [address] Nurse Practitioner Family Medicine 06/10/24 Rig Welder Relationship Specialty Start Date End Date Tapan Zazueta MD [address] [place] [address] PCP - General Family Medicine 06/10/24 Ariella Mathis DO [address] [place] [address] Referring Physician Neurology 01/02/24 Aida Reese NP [address] [place] [address] Nurse Practitioner Family Medicine 06/10/24 Rig Welder Relationship Specialty Start Date End Date Tapan Zazueta MD [address] [place] [address] PCP - General Family Medicine 06/10/24 Ariella Mathis DO [address], [place] [address] Referring Physician Neurology 01/02/24 Aida Reese NP [address] [place] [address] Nurse Practitioner Family Medicine 06/10/24 Rig Welder Relationship Specialty Start Date End Date Tapan Zazueta MD [address] [place] [address] PCP - General Family Medicine 06/10/24 Ariella Mathis DO [address], [place] [address] Referring Physician Neurology 01/02/24 Aida Reese, RIKKI [address] [place] [address] Nurse Practitioner Family Medicine 06/10/24 Rig Welder Relationship Specialty Start Date End Date Tapan Zazueta MD [address] [place] [address] PCP - General Family Medicine 06/10/24 Ariella Mathis DO [address], [place] [address] Referring Physician Neurology 01/02/24 Aida Reese, RIKKI [address] [place] [address] Nurse Practitioner Family Medicine 06/10/24 Rig Welder Relationship Specialty Start Date End Date Tapan Zazueta MD [address] [place] [address] PCP - General Family Medicine 06/10/24 Ariella Mathis DO [address], [place] [address] Referring Physician Neurology 01/02/24 Aida Reese NP [address] [place] [address] Nurse Practitioner Family Medicine 06/10/24 Rig Welder Relationship Specialty Start Date End Date Tapan Zazueta MD [address] [place] [address] PCP - General Family Medicine 06/10/24 Ariella Mathis DO [address] [place], [place] [address] Referring Physician Neurology 01/02/24 Aida Reese, RIKKI [address] [place] [address] Nurse Practitioner Family Medicine 06/10/24 Rig Welder Relationship Specialty Start Date End Date Tapan Zazueta MD [address] [place] [address] PCP - General Family Medicine 06/10/24 Ariella Mathis DO [address] [place] [address] Referring Physician Neurology 01/02/24 Aida Reese NP [address] [place] [address] Nurse Practitioner Family Medicine 06/10/24 Rig Welder Relationship Specialty Start Date End Date Tapan Zazueta MD [address] [place] [address] PCP - General Family Medicine 06/10/24 Ariella Mathis DO [address] [place] [address] Referring Physician Neurology 01/02/24 Aida Reese NP [address] [place] [address] Nurse Practitioner Family Medicine 06/10/24 Rig Welder Relationship Specialty Start Date End Date Tapan Zazueta MD [address] [place] [address] PCP - General Family Medicine 06/10/24 Ariella Mathis DO [address] [place], [place] [address] Referring Physician Neurology 01/02/24 Aida Reese NP [address] [place] [address] Nurse Practitioner Family Medicine 06/10/24 Rig Welder Relationship Specialty Start Date End Date Tapan Zazueta MD [address] [place] [address] PCP - General Family Medicine 06/10/24 Ariella Mathis DO [address], [place] [address] Referring Physician Neurology 01/02/24 Aida Reese NP [address] [place] [address] Nurse Practitioner Family Medicine 06/10/24 Rig Welder Relationship Specialty Start Date End Date Tapan Zazueta MD [address] [place] [address] PCP - General Family Medicine 06/10/24 Ariella Mathis DO [address], [place] [address] Referring Physician Neurology 01/02/24 Aida Reese NP [address] [place] [address] Nurse Practitioner Family Medicine 06/10/24 Rig Welder Relationship Specialty Start Date End Date Tapan Zazueta MD [address] [place] [address] PCP - General Family Medicine 06/10/24 Ariella Mathis DO [address], [place] [address] Referring Physician Neurology 01/02/24 Aida Reese NP [address] [place] [address] Nurse Practitioner Family Medicine 06/10/24 Rig Welder Relationship Specialty Start Date End Date Tapan aZzueta MD [address] [place] [address] PCP - General Family Medicine 06/10/24 Ariella Mathis DO [address] [place] [address] Referring Physician Neurology 01/02/24 Aida Reese NP [address] [place] [address] Nurse Practitioner Family Medicine 06/10/24 Team Status: Inactive Member Role Status Dates Allan Lacey MD Attending Provider Active Start: September 12, 2024 End: September 12, 2024 Aida Reese NP-C Primary Care Provider Ac tive Start: September 12, 2024 End: September 12, 2024 Rig Welder Relationship Specialty Start Date End Date Tapan Zazueta MD [address] [place] [address] PCP - General Family Medicine 06/10/24 Ariella Mathis DO [address] [place] [address] Referring Physician Neurology 01/02/24 Aida Reese NP [address] [address] Nurse Practitioner Family Medicine 06/10/24 Rig Welder Relationship Specialty Start Date End Date Tapan Zazueta MD [address] [place] [address] PCP - General Family Medicine 06/10/24 Ariella Mathis DO [address], [place] [address] Referring Physician Neurology 01/02/24 Aida Reese NP [address] [place] [address] Nurse Practitioner Family Medicine 06/10/24 Rig Welder Relationship Specialty Start Date End Date Tapan Zazueta MD [address] [place] [address] PCP - General Family Medicine 06/10/24 Ariella Mathis DO [address] [place], [place] [address] Referring Physician Neurology 01/02/24 Aida Reese NP [address] [place] [address] Nurse Practitioner Family Medicine 06/10/24 Rig Welder Relationship Specialty Start Date End Date Tapan Zazueta MD [address] [place] [address] PCP - General Family Medicine 06/10/24 Ariella Mathis DO [address], [place] [address] Referring Physician Neurology 01/02/24 Aida Reese NP [address] [place] [address] Nurse Practitioner Family Medicine 06/10/24 Rig Welder Relationship Specialty Start Date End Date Tapan Zazueta MD [address] [place] [address] PCP - General Family Medicine 06/10/24 Ariella Mathis DO [address] [place], [place] [address] Referring Physician Neurology 01/02/24 Aida Reese NP [address] [place] [address] Nurse Practitioner Family Medicine 06/10/24 Rig Welder Relationship Specialty Start Date End Date Tapan Zazueta MD [address] [place] [address] PCP - General Family Medicine 06/10/24 Ariella Mathis DO [address] [place] [address] Referring Physician Neurology 01/02/24 Aida Reese NP [address] [place] [address] Nurse Practitioner Family Medicine 06/10/24 Rig Welder Relationship Specialty Start Date End Date Tapan Zazueta MD [address] [place] [address] PCP - General Family Medicine 06/10/24 Ariella Mathis DO [address] [place] [address] Referring Physician Neurology 01/02/24 Aida Reese NP [address] [place] [address] Nurse Practitioner Family Medicine 06/10/24 Rig Welder Relationship Specialty Start Date End Date Tapan Zazueta MD [address] [place] [address] PCP - General Family Medicine 06/10/24 Ariella Mathis DO [address] [place] [address] Referring Physician Neurology 01/02/24 Aida Reese NP [address] [place] [address] Nurse Practitioner Family Medicine 06/10/24 Rig Welder Relationship Specialty Start Date End Date Tapan Zazueta MD [address] [place] [address] PCP - General Family Medicine 06/10/24 Ariella Mathis DO [address] [place] [address] Referring Physician Neurology 01/02/24 Aida Reese NP [address] [place] [address] Nurse Practitioner Family Medicine 06/10/24 Rig Welder Relationship Specialty Start Date End Date Tapan Zazueta MD [address] [place] [address] PCP - General Family Medicine 06/10/24 Ariella Mathis DO [address] [place] [address] Referring Physician Neurology 01/02/24 Aida Reese NP [address] [place] [address] Nurse Practitioner Family Medicine 06/10/24 Rig Welder Relationship Specialty Start Date End Date Tapan Zazueta MD [address] [place] [address] PCP - General Family Medicine 06/10/24 Ariella Mathis DO [address] [place] [address] Referring Physician Neurology 01/02/24 Aida Reese NP [address] [place] [address] Nurse Practitioner Family Medicine 06/10/24 Rig Welder Relationship Specialty Start Date End Date Tapan Zazueta MD [address] [place] [address] PCP - General Family Medicine 06/10/24 Ariella Mathis DO [address] [place] [address] Referring Physician Neurology 01/02/24 Aida Reese NP [address] [place] [address] Nurse Practitioner Family Medicine 06/10/24 Rig Welder Relationship Specialty Start Date End Date Tapan Zazueta MD [address] [place] [address] PCP - General Family Medicine 06/10/24 Ariella Mathis DO [address] [place] [address] Referring Physician Neurology 01/02/24 Aida Reese NP [address] [place] [address] Nurse Practitioner Family Medicine 06/10/24 Rig Welder Relationship Specialty Start Date End Date Tapan Zazueta MD [address] [place] [address] PCP - General Family Medicine 06/10/24 Ariella Mathis DO [address] [place] [address] Referring Physician Neurology 01/02/24 Aida Reese NP [address] [place] [address] Nurse Practitioner Family Medicine 06/10/24 Rig Welder Relationship Specialty Start Date End Date Tapan Zazueta MD [address] [place] [address] PCP - General Family Medicine 06/10/24 Ariella Mathis DO [address] [place] [address] Referring Physician Neurology 01/02/24 Aida Reese NP [address] [place] [address] Nurse Practitioner Family Medicine 06/10/24 Rig Welder Relationship Specialty Start Date End Date Tapan Zazueta MD [address] [place] [address] PCP - General Family Medicine 06/10/24 Ariella Mathis DO [address], [place] [address] Referring Physician Neurology 01/02/24 Aida Reese NP [address] [place] [address] Nurse Practitioner Family Medicine 06/10/24 Rig Welder Relationship Specialty Start Date End Date Tapan Zazueta MD [address] [place] [address] PCP - General Family Medicine 06/10/24 Ariella Mathis DO [address] [place], [place] [address] Referring Physician Neurology 01/02/24 Aida Reese NP [address] [place] [address] Nurse Practitioner Family Medicine 06/10/24 Rig Welder Relationship Specialty Start Date End Date Tapan Zazueta MD [address] [place] [address] PCP - General Family Medicine 06/10/24 Ariella Mathis DO [address] [place] [address] Referring Physician Neurology 01/02/24 Aida Reese, RIKKI [address] [place] [address] Nurse Practitioner Family Medicine 06/10/24 Rig Welder Relationship Specialty Start Date End Date Tapan Zazueta MD [address] [place] [address] PCP - General Family Medicine 06/10/24 Ariella Mathis DO [address], [place] [address] Referring Physician Neurology 01/02/24 Aida Resee NP [address] [place] [address] Nurse Practitioner Family Medicine 06/10/24 Rig Welder Relationship Specialty Start Date End Date Tapan Zazueta MD [address] [place] [address] PCP - General Family Medicine 06/10/24 Ariella Mathis DO [address] [place], [place] [address] Referring Physician Neurology 01/02/24 Aida Reese, RIKKI [address] [place] [address] Nurse Practitioner Family Medicine 06/10/24 Rig Welder Relationship Specialty Start Date End Date Tapan Zazueta MD [address] [place] [address] PCP - General Family Medicine 06/10/24 Ariella Mathis DO [address] [place] [address] Referring Physician Neurology 01/02/24 Aida Reese NP [address] [place] [address] Nurse Practitioner Family Medicine 06/10/24 Rig Welder Relationship Specialty Start Date End Date Tapan Zazueta MD [address] [place] [address] PCP - General Family Medicine 06/10/24 Ariella Mathis DO [address] [place] [address] Referring Physician Neurology 01/02/24 Aida Reese NP [address] [place] [address] Nurse Practitioner Family Medicine 06/10/24 Rig Welder Relationship Specialty Start Date End Date Tapan Zazueta MD [address] [place] [address] PCP - General Family Medicine 06/10/24 Ariella Mathis DO [address] [place] [address] Referring Physician Neurology 01/02/24 Aida Reese NP [address] [place] [address] Nurse Practitioner Family Medicine 06/10/24 Rig Welder Relationship Specialty Start Date End Date Tapan Zazueta MD [address] [place] [address] PCP - General Family Medicine 06/10/24 Ariella Mathis DO [address] [place] [address] Referring Physician Neurology 01/02/24 Aida Reese NP [address] [place] [address] Nurse Practitioner Family Medicine 06/10/24 Rig Welder Relationship Specialty Start Date End Date Tapan Zazueta MD [address] [place] [address] PCP - General Family Medicine 06/10/24 Ariella Mathis DO [address] [place] [address] Referring Physician Neurology 01/02/24 Aida Reese NP [address] [place] [address] Nurse Practitioner Family Medicine 06/10/24 Team Status: Active Member Role Status Dates KELI Sexton Primary Care Provider Active Team Status: Active Member Role Status Dates KELI Ag Primary Care Provider Ac tive Start: July 09, 2025 Nicolas Dickinson DO Attending Provider Active St art: July 09, 2025 Team Status: Inactive Member Role Status Dates KELI Sexton Primary Care Provider Active Start: July 17, 2025 End: July 17, 2025 KELI Sexton Attending Provider Active Start: July 17, 2025 End: July 17, 2025 Goals (unrecognized section and content) Goals may [...] BE BASED ON THE PRIMARY CLINICAL RECORDS. [facility]. provides no warranty or guarantee of the accuracy or completeness of information in this document.
[2025-07-18 17:51] LABS: Anion Gap 13.5; Blood Urea Nitrogen 15.0 mg/dL (7.0-18.0); Calcium 8.7 mg/dL (8.5-10.1); Carbon Dioxide 26.8 mmol/L (21.0-32.0); Chloride 104 mmol/L (98-107); Estimated GFR (African America 48 (>=60 mL/min/1.73m^2); Estimated GFR (Non-African Ame 40 (>=60 mL/min/1.73m^2); Glucose 164 mg/dL (74-106); Magnesium 1.8 mg/dL (1.8-2.4); Potassium 3.3 mmol/L (3.5-5.1); Sodium 141 mmol/L (136-145)
== END 2025-07-18 16:28 | disposition home or self-care (01) ==
PROVIDERS: PCP Nurse Practitioner; Visit Provider Nurse Practitioner
DX: E83.42 Hypomagnesemia (principal); E87.6 Hypokalemia
CPT/HCPCS: 36415; 80048; 83735

== ENCOUNTER 2025-08-04 09:19 | Outpatient (OUT) | payer MEDICARE, MEDICAID, SELFPAY ==
--- OUTSIDE RECORDS SUMMARY | 2018-10-04 05:00 | XMS_ITS | Continuity of Care Document ---
Author Organization [facility] Address [address] [place] [address] Phone Care Team Providers Care Stacking Machine Operator Name Role Phone Tino Montelongo DDS Unavailable [...] Nov-15-2 018 Nutrit Couns For Control Of [place] Dis Sep Oral Hygiene Instruction Removal Of [...] Eval Panoramic Film Intraoral-periapical 1st Film 8 Juvhicems-zskxazacyi-bjsl Additional Jun Rcqmvqury-tuetmxavve-nkdi Additional Jun Comp Oral Eval New/estab Patient 2017 Oral Hygiene Instruction Initial Oral Exam Advance Directives Directive Yes / No Effective Date File Name No Information Encounters Encounter Description Practice Location Reason(s) For Visit Diagnoses Date Provider Providers Copied on Encounter [facility], [address] [place] [address], [id number] , tel:[phone] Dental Clinic post opt (chief complaint) Encounter for screening for dental disorders 8 Reginald Jiménez. [address] [place], [place], [id number], [place]. tel:[phone] [facility], [address] [place] [address], [id number] , tel:[phone] Dental Clinic extraction (chief complaint) Encounter for screening for dental disorders 8 Tigist Bahena. [address] [place] [address], [id number], [place]. tel:[phone] [facility], [address] [place], [place], [id number] , [place] tel: [phone] Dental Clinic Encounter for screening for dental disorders 8 Tigist ALEMANRajendra Josef. [address] [place], [place], [id number], [place]. tel:[phone] [facility], [address] [place] [address], [id number] , [place] tel: [phone] Dental Clinic EXT (chief complaint) Encounter for screening for dental disorders 8 Sivasanisabelan DMD Deepasulochana. [address] [place], [address], [place]. tel:[phone] [facility], [address] [place] [address], [id number] , [place] tel: [phone] Dental Clinic Dental Limited (chief complaint) Encounter for screening for dental disorders 8 Sivasankaraganesan DMD Deepasulochana. [address] [place], [address], [place]. tel:[phone] [facility], [address] [place] [address], [id number] , [place] tel:[phone] Dental Clinic Dental New (chief complaint) Encounter for screening for dental disorders 8 Sivasanisabelan DMD Deepasulochana. [address] [place] [address], [id number], [place]. tel:[phone] Family History Family Member Type Diagnosis Age At Onset Father Problem (finding) Cardiovascular disease Mother Problem (finding) Cardiovascular disease Payers Payer name Insurance type Covered constitution party ID Authoriza tion(s) No Information Social History Type Description Quantity Date Captured Comments Alcohol Use Details Unknown Caffeine Use Details Unknown Tobacco Use Status Current non-smoker 19 Smoking Status Never smoker Non-Smoking Tobacco Use Details : No Details Available : No Details Available Sex Female Sexual Orientation Straight or heterosexual Gender Identity Female Vital Signs Date / Time: Height Weight [...]
--- OUTSIDE RECORDS SUMMARY | 2025-07-22 08:18 | XMS_ITS ---
Author Name Auto Generated Organization OHIP Support Name Relationship Address Phone CHRYSTAL ROSHNI Next of Kin [address] [facility], [place] + MCFRANSISCONA MARCY Next of Kin [address] [facility], [phone] + CHRYSTAL, ROSHNI Next of Kin [address] [facility], [place] + MCFRANSISCONA MARCY Next of Kin [address] [facility], [id number] + CHRYSTAL ROSHNI Next of Kin [address] [facility], [place] + MCKINNA, MARCY Next of Kin [address] [facility], [address] + JARRELL, ROSHNI Next of Kin [address] [facility], [place] + MCFRANSISCONA, MARCY Next of Kin [address] [facility], [id number] + CARDITHERESA ROSHNI Next of Kin Unknown [phone] JARRELL ROHSNI Next of Kin [address] [facility], [place] + MCKINNA, MARCY Next of Kin [address] [facility], [address] + JARRELL, ROSHNI Next of Kin [address] [facility], [place] + MCKINNA, MARCY Next of Kin [address] [facility], [id number] + JARRELL, ROSHNI Next of Kin [address] [facility], [place] + MCFRANSISCONA MARCY Next of Kin [address] [facility], [id number] + JARRELL, ROSHNI Next of Kin [address] [place], [place] + MCKINNA, MARCY Next of Kin [address] [facility], [id number] + JARRELL, ROSHNI Next of Kin [address] [facility], [place] + MCKINNA, MARCY Next of Kin [address] [facility], [id number] + JARRELL, ROSHNI Next of Kin [address] [facility], [place] + MCKINNA, MARCY Next of Kin [address] [facility], [address] + JARRELL, ROSHNI Next of Kin [address] [facility], [place] + MCKINNA, MARCY Next of Kin [address] [facility], [address] + JARRELL, ROSHNI Next of Kin [address] [facility], [place] + MCKINNA, MARCY Next of Kin [address] [facility], [address] + JARRELL, ROSHNI Next of Kin [address] [facility], [place] + MCKINNA, MARCY Next of Kin [address] [facility], [address] + CARDINIAS, ROSHNI Next of Kin Unknown +[phone] JARRELL, ROSHNI Next of Kin [address] [facility], [place] + MCKINNA, MARCY Next of Kin [address] [facility], [address] + JARRELL, ROSHNI Next of Kin [address] [facility], [place] + MCKINNA, MARCY Next of Kin [address] [facility], [address] + JARRELL, ROSHNI Next of Kin [address] [facility], [place] + MARCY MARIE Next of Kin [address] [place], [phone] + Care Team Providers Care 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 Name Role Phone MAE REESE Attending Unavailabl e PETITTJESSICA Guardado Attending Unavailable RAMIN MAIER Attending Unavailable RAMIN MAIER Referring Unavailable RAMIN MAIER Referring Unavailable JESSICA FERREIRA Attending Unavailable REESEMAE AREVALO Attending Unavailabl e REESE, MAE Attending Unavailabl e NORTHEIMJAYNA Attending Unavailable REESE, MAE Referring Unavailabl e REESE, MAE Attending Unavailabl e AICHHOLZ, ROSHNI Attending Unavailable AICHHOLZ, ROSHNI Attending Unavailable AICHHOLZ, ROSHNI Attending Unavailable AICHHOLZ, ROSHNI Attending Unavailable AICHHOLZ, ROSHNI Attending Unavailable PETITTI, JESSICA Fan Attending Unavailable Alicia DRAPER, Jayshree Johnson Attending Unavailable Mae Reese N Primary Care Unavaila ble Allan Lacey Attending Unavailable Allan Lacey Admitting Unavailable Allan Lacey Attending Unavailable Allan Lacey Admitting Unavailable Mae Reese N Primary Care Unavaila ble YARIEL BLOUNT Attending Unavailable Amalia Stephens Attending Unavailable Kat, Amalia Attending Unavailable Kat, Amalia Attending Unavailable JOSE ALEJANDROYARIEL MORENO Admitting Unavailable YARIEL BLOUNT Attending Unavailable YARIEL BLOUNT Attending Unavailable MAE REESE Referring Unavailtori e EMELIA YOO Attending Unavailable NASIM CHURCH Attending Unavailable PROBLEMS DATE TYPE CONDITION / CODE ATTENDING STATUS [facility] 06/28/2022 Admitting Diagnosis Other forms of dyspnea / R06.09(ICD-10) NASIM CHURCH Active [facility] 01/23/2025 Admitting Diagnosis Pulmonary hypertension, unspecified / I27.20(ICD-10) NASIM CHURCH Active [facility] 10/17/2024 Admitting Diagnosis Other specified diseases of upper respiratory tract / J39.8(ICD-10) EMELIA YOO Active [facility] PROCEDURES No Procedure Records Found RESULTS PATIENT EDUCATION Observed: 07/22/2025 9:50 AM Status: C Source: [facility] Patient Education Obstetrics and Gynecology Overactive Bladder, [...] health care provider. General instructions ??? Take birb-xdu-ivditbo and prescription medicines only as told by [...] your health care provider monitor your condition. ??? Keep all follow-up visits. This is important. Contact a health care provider if: ??? You have a fever or chills. ??? Your symptoms do not get better with treatment. ??? Your pain and discomfort get worse. ??? You have more frequent urges to urinate. Get help right away if: ??? You are not able to control your bladder. Summary ??? Overactive bladder refers to a condition in which a person has a sudden and frequent need to urinate. ??? Several conditions may lead to an overactive bladder. ??? Treatment for overactive bladder depends on the cause and severity of your condition. ??? Making lifestyle changes, doing Kegel exercises, keeping a log, and taking medicines can help with this condition. This information is not intended to replace advice given to you by your health care provider. Make sure you discuss any questions you have with your health care provider. Document Revised: 07/12/2021 Document Reviewed: 07/12/2021 [email or web address] Patient Education ? 2023 [employer].Urology Urinary Incontinence Urinary incontinence refers to a condition in which a person is unable to control where and when to pass urine. A person with this condition will urinate involuntarily. This means that the person urinates when he or she does not mean to. What are the causes? This condition may be caused by: ??? Medicines. ??? Infections. ??? Constipation. ??? Overactive bladder muscles. ??? Weak bladder muscles. ??? Weak pelvic floor muscles. These muscles provide support for the bladder, intestine, and, in women, the uterus. ??? Enlarged prostate in men. The prostate is a gland near the bladder. When it gets too big, it can pinch the urethra. With the urethra blocked, the bladder can weaken and lose the ability to empty properly. ??? Surgery. ??? Emotional factors, such as anxiety, stress, or post-traumatic stress disorder (PTSD). ??? Spinal cord injury, nerve injury, or other neurological conditions. ??? Pelvic organ prolapse. This happens in women when organs move out of place and into the vagina. This movement can prevent the bladder and urethra from working properly. What increases the risk? The following factors may make you more likely to develop this condition: ??? Age. The older you are, the higher the risk. ??? Obesity. ??? Being physically inactive. ??? and childbirth. ??? Menopause. ??? Diseases that affect the nerves or spinal cord. ??? Long-term, or chronic, coughing. This can increase pressure on the bladder and pelvic floor muscles. What are the signs or symptoms? Symptoms may vary depending on the type of urinary incontinence you have. They include: ??? A sudden urge to urinate, and passing urine involuntarily before you can get to a bathroom (urge incontinence). ??? Suddenly passing urine when doing activities that force urine to pass, such as coughing, laughing, exercising, or sneezing (stress incontinence). ??? Needing to urinate often but urinating only a small amount, or constantly dribbling urine (overflow incontinence). ??? Urinating because you cannot get to the bathroom in time due to a physical disability, such as arthritis or injury, or due to a communication or thinking problem, such as Alzheimer's disease (functional incontinence). How is this diagnosed? This condition may be diagnosed based on: ??? Your medical history. ??? A physical exam. ??? Tests, such as: ? Urine tests. ? X-rays of your kidney and bladder. ? Ultrasound. ? CT scan. ? Cystoscopy. In this procedure, a health care provider inserts a tube with a light and camera (cystoscope) through the urethra and into the bladder to check for problems. ? Urodynamic testing. These tests assess how well the bladder, urethra, and sphincter can store and release urine. There are different types of urodynamic tests, and they vary depending on what the test is measuring. To help diagnose your condition, your health care provider may recommend that you keep a log of when you urinate and how much you urinate. How is this treated? Treatment for this condition depends on the type of incontinence that you have and its cause. Treatment may include: ??? Lifestyle changes, such as: ? Quitting smoking. ? Maintaining a healthy weight. ? Staying active. Try to get 150 minutes of moderate-intensity exercise every week. Ask your health care provider which activities are safe for you. ? Eating a healthy diet. ? Avoid high-fat foods, like fried foods. ? Avoid refined carbohydrates like white bread and white rice. ? Limit how much alcohol and caffeine you drink. ? Increase your fiber intake. Healthy sources of fiber include beans, whole grains, and fresh fruits and vegetables. ??? Behavioral changes, such as: ? Pelvic floor muscle exercises. ? Bladder training, such as lengthening the amount of time between bathroom breaks, or using the bathroom at regular intervals. ? Using techniques to suppress bladder urges. This can include distraction techniques or controlled breathing exercises. ??? Medicines, such as: ? Medicines to relax the bladder muscles and prevent bladder spasms. ? Medicines to help slow or prevent the growth of a man's prostate. ? Botox injections. These can help relax the bladder muscles. ??? Treatments, such as: ? Using pulses of electricity to help change bladder reflexes (electrical nerve stimulation). ? For women, using a medical dermatologist to prevent urine leaks. This is a small, tampon-like, disposable device that is inserted into the urethra. ? Injecting collagen or carbon beads (bulking agents) into the urinary sphincter. These can help thicken tissue and close the bladder opening. ? Surgery. Follow these instructions at home: Lifestyle ??? Limit alcohol and caffeine. These can fill your bladder quickly and irritate it. ??? Keep yourself clean to help prevent odors and skin damage. Ask your health care provider about special skin creams and cleansers that can protect the skin from urine. ??? Consider wearing pads or adult diapers. Make sure to change them regularly, and always change them right after experiencing incontinence. General instructions ??? Take xkfo-ihj-gghnjra and prescription medicines only as told by your health care provider. ??? Use the bathroom about every 3?4 hours, even if you do not feel the need to urinate. Try to empty your bladder completely every time. After urinating, wait a minute. Then try to urinate again. ??? Make sure you are in a relaxed position while urinating. ??? If your incontinence is caused by nerve problems, keep a log of the medicines you take and the times you go to the bathroom. ??? Keep all follow-up visits. This is important. Where to find more information ??? National [place] of Diabetes and Digestive and Kidney Diseases: www.niddk.nih.gov ??? [place] [employer]: www.urologyhealth.org Contact a health care provider if: ??? You have pain that gets worse. ??? Your incontinence gets worse. Get help right away if: ??? You have a fever or chills. ??? You are unable to urinate. ??? You have redness in your groin area or down your legs. Summary ??? Urinary incontinence refers to a condition in which a person is unable to control where and when to pass urine. ??? This condition may be caused by medicines, infection, weak bladder muscles, weak pelvic floor muscles, enlargement of the prostate (in men), or surgery. ??? Factors such as older age, obesity, and childbirth, menopause, neurological diseases, and chronic coughing may increase your risk for developing this condition. ??? Types of urinary incontinence include urge incontinence, stress incontinence, overflow incontinence, and functional incontinence. ??? This condition is usually treated first with lifestyle and behavioral changes, such as quitting smoking, eating a healthier diet, and doing regular pelvic floor exercises. Other treatment options include medicines, bulking agents, medical devices, electrical nerve stimulation, or surgery. This information is not intended to replace advice given to you by your health care provider. Make sure you discuss any questions you have with your health care provider. Document Revised: 05/28/2021 Document Reviewed: 05/28/2021 [employer] Patient Education ? 2023 [email or web address] AMBULATORY VISIT SUMMARY Observed: 07/22 8:18 AM Status: F Source: [facility] Ambulatory Visit Summary DIANA CHAMPION Meng :1955 Visit Date:07/22/2025 Ambulatory Visit Instructions Your Diagnosis Mixed incontinence Your Care Team Attending Physician - Kat MICHAUD, Amalia Primary Care Physician - ROSI ZAZUETA MD This Is Your Medications List albuterol (albuterol 0.083% Inh Meagan 3 mL) baclofen ferrous sulfate (ferrous sulfate 325 mg Tab) fluticasone/umeclidinium/vilanterol (fluticasone/umeclidinium/vilanterol 200 mcg-62.5 mcg-25 mcg/inh inhalation powder) furosemide [...] Tubal ligation. Discharge Vitals Heart Rate (Peripheral) 69 Blood Pressure 149/81 Height 163 cm Height 64 in Weight 105.1 kg Weight 231.706 lb BMI 39.56 What to do next Scheduled Follow-Up Appointments Monday 8:00 AM EST With: Amalia Stephens PA-C Where: [facility] [address] [address]- Medications What How Much When Instructions Unchanged [...] you for choosing us for your care. Patient Portal You may access all of your results and other medical record information on our secure patient portal. If you are not signed up for this yet, please contact [employer] at [phone] to get signed up today. Language Information Language assistance services are available as needed. UROLOGY OFFICE/CLINIC NOTE Observed: 8:18 AM Status: F Source: [facility] Urology Office/Clinic Note Chief Complaint 3 month f/u HPI Staff 4 month f/u Dx: mixed incontinence Trospium 20mg BID patient is still taking Patient denies any dysuria or gross hematuria. Denies any flank or abdomen pain. leakage, a lot of time she doesnt know shes leaking History of Present Illness I have reviewed and verified the staff HPI to be accurate for this encounter. Review of Systems PHQ Score Initial Depression Screen Score: 0 SCORE no fever, chills, malaise, myalgia. no abdominal pain, nausea, vomiting. Physical Exam Vitals & Measurements HR: 69(Peripheral) BP: 149/81 HT: 163 cm HT: 64 in WT: 231.706 lb WT: 105.1 kg BMI: 39.56 General: Well developed, well nourished, in no acute distress. Assessment/Plan CHF - [facility] Blair CKD - Miguel COPD/Pulm - Samsa/Omballi. Required hospitalization in Aug. Colorectal CA 2003 tx'd w Chemo/rad. No recurrence. Follows w [facility]. Denies issues w UTIs. No hx stones. Never has gross hematuria. 1. OAB (overactive bladder), (N32.81: Overactive bladder)OAB (overactive bladder) 10/15/24: Prev Uro records PRW - Cysto [...] On Lasix. Denies significant bladder irritant intake. Pt called in Oct and advised that insurance will cover Oxybutynin, Sanctura, and Detrol. Last visit, patient had c/o continued frequency, urgency and UUI. VESIcare was stopped and Trospium 60 mg ER qd. BBSQ 27 UA today w/ trace leuks only No PVR provided, pt declined at end of visit (0 ml last visit) Today, shares she is taking Trospium 60 mg qd. Reports SEs of dry mouth and dry eyes. Denies constipation. Shares she has had no improvement with Trospium. Still most bothered by UUI. Voids q1h. She is taking Lasix and is aware this is likely contributing to her frequency as well. Seeing she has failed both Trospium and Vesicare, will send for Myrbetriq 25 mg to see if we can get this covered. Risks/benefits/side effects discussed. If not covered, will try to send Gemtesa. If both not covered, patient to think about bladder Botox injections as next steps. Procedure details briefly discussed today, but did not go into elaborate detail. Will reassess her symptoms at f/u visit. She is agreeable to plan. All questions answered. -Stop Trospium -Start Myrbetriq 25 mg daily. Rx sent. -Timed voids, voiding maneuvers -Avoid bladder irritants -Pt to think about intravesical Botox. Handout provided. -F/U in 2 months w/ PVR, or sooner if needed Ordered: mirabegron, 25 mg = 1 tab(s), Oral, Daily, X 30 day(s), # 30 tab(s), Refills(s) 4, Pharmacy: [id number], 163, cm, 07/22/25 8:42:00 EDT, Height/Length Dosing, 105.1, kg, 07/22/25 8:42:00 EDT, Weight Dosing 2. Mixed incontinence (N39.46: Mixed incontinence) UUI>DONNA -See #1 Ordered: mirabegron, 25 mg = 1 tab(s), Oral, Daily, X 30 day(s), # 30 tab(s), Refills(s) 4, Pharmacy: [facility], 163, cm, 07/22/25 8:42:00 EDT, Height/Length Dosing, 105.1, kg, 07/22/25 8:42:00 EDT, Weight Dosing 1126F Pain severity quantified; no pain present Current tobacco non-user 1036F Functional status assessed 1170F Medication list documented in medical record 1159F Most recent diastolic blood pressure 80-89 mm Hg 3079F Most recent systolic blood pressure >= 140 mm Hg 3077F Review of all meds by a prescribing practitioner or clinical pharmacist documented in EHR 1160F Urnls Dip Stick Auto w/o Microscopy POC 45741 Follow-up No qualifying data available Patient Education Overactive Bladder, Adult Urinary Incontinence Problem List/Past Medical History Ongoing JEANNE (acute kidney injury) Arthritis Arthropathy of right knee Asthma Benign essential HTN Chronic heart failure with preserved ejection fraction Chronic respiratory failure with hypoxia Colorectal cancer Critical illness myopathy Depression Disc displacement, lumbar Emphysema, unspecified GERD (gastroesophageal reflux disease) Hyperlipidemia Hyperuricemia Iron deficiency anemia Leukocytosis Lumbar spondylosis Malaise Mixed incontinence 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 OAB (overactive bladder) Other secondary pulmonary hypertension Primary osteoarthritis of [...] Tab Multi Vitamins oral tablet, Oral, Daily Myrbetriq 25 mg oral tablet, extended release, 25 mg= 1 tab(s), Oral, Daily, 4 refills omeprazole 20 mg Cap-DR, 20 mg= 1 cap(s) paroxetine 30 mg Tab, 30 mg= 1 tab(s) pramipexole 0.25 mg Tab, Oral pregabalin 75 mg Cap, 75 mg= 1 cap(s) sodium chloride traMADOL 50 mg Tab, 50 mg= 1 tab(s), Oral traZODONE 100 mg Tab, 100 mg= 1 tab(s) trospium 20 mg oral tablet, 20 mg= 1 tab(s), Oral, BID, 11 refills Xalatan 0.005% Soln-Opth, 1 drop(s) Allergies fentaNYL (Hallucinations) Social History Alcohol Never., 10/15/2024 Substance Abuse Never., 10/15/2024 Tobacco Never (less than 100 in lifetime) Tobacco Use:. Never Smokeless Tobacco Use:., 03/24/2025 Family History Alcoholism: Brother. Arthritis: Sister. Immunizations Vaccine Date Status Comments influenza virus vaccine, inactivated 09/06/2024 Recorded influenza virus vaccine, inactivated 08/26/2023 Recorded pneumococcal 20-valent conjugate vaccine 08/09/2023 Recorded zoster vaccine, inactivated 11/01/2022 Recorded zoster vaccine, inactivated 08/27/2022 Recorded influenza virus vaccine, inactivated 08/04/2022 Recorded SARS-CoV-2 (COVID-19) mRNAMUL.ORD![id number] 08/04/2022 Recorded SARS-CoV-2 (COVID-19) mRNA-1273 vaccine 03/25/2022 Recorded SARS-CoV-2 (COVID-19) mRNA-1273 vaccine 09/06/2021 Recorded influenza virus vaccine, inactivated 08/06/2021 Recorded SARS-CoV-2 (COVID-19) mRNA-1273 vaccine 02/04/2021 Recorded 2025-03-24: TPV60 SARS-CoV-2 (COVID-19) mRNA-1273 vaccine 01/07/2021 Recorded 2025-03-24: TPV60 influenza virus vaccine, inactivated 08/07/2020 Recorded influenza virus vaccine, inactivated 08/09/2019 Recorded pneumococcal 23-valent vaccine 10/19/2018 Recorded influenza virus vaccine, inactivated 08/08/2018 Recorded influenza virus vaccine, inactivated 08/10/2017 Recorded Lab Results Ambulatory Point of Care Results Bilirubin Urine Dipstick: Negative (07/22/25 08:28:00) Blood Urine Dipstick: Negative (07/22/25 08:28:00) Glucose Urine Dipstick: Negative (07/22/25 08:28:00) Ketones Urine Dipstick: Negative (07/22/25 08:28:00) Leukocytes Urine Dipstick: Trace (07/22/25 08:28:00) Nitrite Urine Dipstick: Negative (07/22/25 08:28:00) Protein Urine Dipstick: Negative (07/22/25 08:28:00) Specific Watchung Urine Dipstick: 1.015 (07/22/25 08:28:00) Urine Appearance Urine Dipstick: Clear (07/22/25 08:28:00) Urine Color Urine Dipstick: Yellow (07/22/25 08:28:00) Urobilinogen Urine Dipstick: Normal 0.2-1 EU/dl (07/22/25 08:28:00) pH Urine Dipstick: 5.5 (07/22/25 08:28:00) Result Comment: Electronical ly Signed By: Amalia Stephens PA-C\.victorina\Date and Time Signed: 07/22/25 09:58 EDT PATIENT EDUCATION Observed: 03/24/2025 10:43 AM Status: F Source: [facility] Patient Education Obstetrics and Gynecology Overactive Bladder, [...] health care provider. General instructions ??? Take ekhq-ogw-wbpaxhg and prescription medicines only as told by [...] your health care provider monitor your condition. ??? Keep all follow-up visits. This is important. Contact a health care provider if: ??? You have a fever or chills. ??? Your symptoms do not get better with treatment. ??? Your pain and discomfort get worse. ??? You have more frequent urges to urinate. Get help right away if: ??? You are not able to control your bladder. Summary ??? Overactive bladder refers to a condition in which a person has a sudden and frequent need to urinate. ??? Several conditions may lead to an overactive bladder. ??? Treatment for overactive bladder depends on the cause and severity of your condition. ??? Making lifestyle changes, doing Kegel exercises, keeping a log, and taking medicines can help with this condition. This information is not intended to replace advice given to you by your health care provider. Make sure you discuss any questions you have with your health care provider. Document Revised: 07/12/2021 Document Reviewed: 07/12/2021 [email or web address] Patient Education ? 2023 [employer]. UROLOGY OFFICE/CLINIC NOTE Observed: 9:40 AM Status: F Source: [facility] Urology Office/Clinic Note Chief Complaint 5 month [...] rashes or suspicious lesions Assessment/Plan CHF - [facility] [place] CKD - Miguel COPD/Pulm - Samsa/Omballi. Required hospitalization in Aug. [...] IR BID. Pt currently rehabbing at [facility] d/t double pneumonia. Has been there x1 week, plan is to hopefully return home within the next week or so. F/u 3 mos to assess efficacy. Ordered: Body Mass Index (BMI) documented 3008F Current tobacco non-user 1036F Depression Screening Negative 3352F E&M of Est. Patient Moderate 30-39 Min 55167 Medication list documented in medical record 1159F [...] Social History Alcohol Never., 10/15/2024 Substance Abuse Never., 10/15/2024 Tobacco Never (less than 100 in lifetime) Tobacco Use:. Never Smokeless Tobacco Use:., 03/24/2025 Family History Alcoholism: Brother. Arthritis: Sister. Immunizations Vaccine Date Status Comments influenza virus vaccine, inactivated 09/06/2024 Recorded influenza virus vaccine, inactivated 08/26/2023 Recorded pneumococcal 20-valent conjugate vaccine 08/09/2023 Recorded zoster vaccine, inactivated 11/01/2022 Recorded zoster vaccine, inactivated 08/27/2022 Recorded influenza virus vaccine, inactivated 08/04/2022 Recorded SARS-CoV-2 (COVID-19) [id number].[id number] 08/04/2022 Recorded SARS-CoV-2 (COVID-19) mRNA-1273 vaccine 03/25/2022 Recorded SARS-CoV-2 (COVID-19) mRNA-1273 vaccine 09/06/2021 Recorded influenza virus vaccine, inactivated 08/06/2021 Recorded SARS-CoV-2 (COVID-19) mRNA-1273 vaccine 02/04/2021 Recorded 2025-03-24: TPV60 SARS-CoV-2 (COVID-19) mRNA-1273 vaccine 01/07/2021 Recorded 2025-03-24: TPV60 influenza virus vaccine, inactivated 08/07/2020 Recorded influenza virus vaccine, inactivated 08/09/2019 Recorded pneumococcal 23-valent vaccine 10/19/2018 Recorded influenza virus vaccine, inactivated 08/08/2018 Recorded influenza virus vaccine, inactivated 08/10/2017 Recorded Result Comment: Electronical ly Signed By: JOSE ALEJANDRO MICHAUD, YARIEL Guardado\Date and Time Signed: 03/24/25 10:44 EDT AMBULATORY VISIT SUMMARY Observed: 03/24 9:40 AM Status: F Source: [facility] Ambulatory Visit Summary DIANA CHAMPION :1955 Visit Date:03/24/2025 Ambulatory Visit Instructions Your Diagnosis Mixed incontinence Your Care Team Attending Physician - YARIEL BLOUNT PA-C Primary Care Physician - ROSI ZAZUETA MD This Is Your Medications List albuterol (albuterol 0.083% Inh Meagan 3 mL) baclofen ferrous sulfate (ferrous sulfate 325 mg Tab) fluticasone/umeclidinium/vilanterol (fluticasone/umeclidinium/vilanterol 200 mcg-62.5 mcg-25 mcg/inh inhalation powder) furosemide [...] Follow-Up Appointments Monday 9:40 AM EDT With: YARIEL BLOUNT PA-C Where: [facility] [address] [place] [address]- Medications What How Much When Instructions Unchanged [...] you for choosing us for your care. PROGRESS Observed: 01/23/2025 12:00 PM Status: COMPLETED Source: [facility] Cardiology Clinic Note Chief Complaint: Patient here for 8 mo follow up CAD and hypertension. She's been in and out of [facility] for pneumonia recently. Had echo a [...] breath since then. She has seen her lather apprentice. Her chest pain is noncardiac. She has [...] history of Allergic rhinitis, Anemia, Asthma, Cancer ([facility] Chronic heart failure with preserved ejection fraction ([facility]), Chronic hypoxic respiratory failure ([facility]HCC), Chronic kidney disease, COPD (chronic obstructive pulmonary disease) ([facility]), Coronary artery disease, Depression, Diabetes mellitus ([facility]HCC), Dyspnea, GERD (gastroesophageal reflux disease), Hyperlipidemia, Lumbar [...] mouth every other day., Disp: , Rfl: xxktpaotgmv-frixmvypg-wzlyznnm 100-62.5-25 mcg blister with device, , Disp: [...] (2-3 HOURS BEFORE BEDTIME), Disp: , Rfl: prednisoLONE acetate (Pred-Forte) 1 % ophthalmic suspension, , Disp: , Rfl: pregabalin (Lyrica) 75 mg capsule, TAKE 1 CAPSULE BY MOUTH IN THE MORNING AND 1 AT BEDTIME, Disp: , Rfl: sodium chloride 0.9 % nebulizer solution, USE 1 VIAL IN NEBULIZER THREE TIMES DAILY, Disp: , Rfl: solifenacin (VESIcare) 5 mg tablet, Take 10 mg by mouth in the morning., Disp: , Rfl: traMADol (Ultram) 50 mg tablet, Take 50 mg by mouth every 12 (twelve) hours., Disp: , Rfl: traZODone (Desyrel) 100 mg tablet, Take 100 mg by mouth at bedtime., Disp: , Rfl: traZODone (Desyrel) 50 mg tablet, Take 100 mg by mouth at bedtime., Disp: , Rfl: Trelegy Ellipta 200-62.5-25 mcg blister with device, INHALE 1 PUFF ONCE DAILY RINSE MOUTH AFTER USE, Disp: , Rfl: Last Recorded Vitals BP 122/74 (BP Location: Right wrist, Patient Position: Sitting) Pulse 70 Ht 1.626 m (5' 4 ) Wt 107 kg (236 lb) Comment: per patient SpO2 96% Comment: on 3L O2 BMI 40.51 kg/m??? Physical Examination: GENERAL: alert and oriented x3, well developed, in no acute distress. HEAD: atraumatic, normocephalic. EYES: BHAVANA, EOMI. NECK: trachea midline, no JVD present, no carotid bruits present. CARDIAC: S1, S2 present. RRR. No murmur, rubs, or gallops. RESPIRATORY: CTAB, no increased effort of breathing, no rales, rhonchi, or wheezing. ABDOMEN: soft, nontender, nondistended. EXTREMITIES: no lower extremity edema, peripheral pulses are 2+ bilaterally. No rash/skin discoloration present. NEURO: strength/sensation equal and symmetric in bilateral upper and lower extremities. PSYCH: appropriate mood, affect, and judgement. Investigations: Echocardiogram 12/2019 Global left ventricular systolic function is normal. EF is 60%. No regional wall motion abnormality. Normal diastolic function. Normal right ventricular systolic function. Normal right-sided pressures. No significant valvular abnormalities. Echocardiogram 04/2023 Global left ventricular systolic function is normal. LVEF is 55%. Moderately dilated right ventricle with free wall hypertrophy and mildly reduced systolic function No significant valvular dysfunction Severely elevated right-sided pressures; RVSP 72 mmHg No pericardial effusion CT chest 04/2023: Multifocal endobronchial filling and collapse may relate to aspiration pneumonia versus mucous plugging. No pulmonary embolism. The main pulmonary artery is mildly enlarged which could be seen in the setting of pulmonary artery hypertension. Echocardiogram 01/2025: Global left ventricular systolic function is normal; visually estimated ejection fraction is 55% Mild left ventricular hypertrophy Indeterminate left ventricular diastolic function Normal right ventricular size and systolic function Severe pulmonary hypertension; RVSP 63 mmHg No significant valvular abnormalities Assessment: Nonobstructive CAD per 08/2018 cath essential hypertension dyspnea on exertion Chronic edema of lower extremity Improved on lasix Pulmonary hypertension; RVSP 63 mmHg 01/2025 - likely Group 3 Asthma Chronic respiratory failure with hypoxia Chronic obstructive pulmonary disease Multiple pulmonary nodules Morbid obesity Plan: Would recommend baby aspirin and a statin given nonobstructive coronary disease on prior cath Continue treatment for noncardiac comorbidities as clinically appropriate Return to clinic on an as needed basis Nasim Church MD, MPH, FACC, [facility], [facility] Interventional Cardiology Pager Email: [email or web address] OFFICE VISIT Observed: 01/23/2025 12:00 PM Status: COMPLETED Source: [facility] [id number] Diana Champion [birth year] F Date Provider Department Center 01/23/2025 271-NASIM CHURCH PRASANTH Baker Family History Problem Relation Age of Onset Heart failure Mother Heart disease Father Family Status - Relation Status Age at Mother Father Level of Service:24584 CT OFFICE/OUTPATIENT ESTABLISHED LOW MDM 20 MIN ABSTRACT Observed: 10/24/2024 12:00 AM Status: COMPLETED Source: [facility] [id number] Diana Champion [birth year] F Date Provider Department Center 10/24/2024 Nicholas-EMELIA YOO [facility] ONC [facility] Family History Problem Relation Age of Onset Heart failure Mother Heart disease Father Family Status - Relation Status Age at Mother Father PROGRESS Observed: 10/17/2024 11:30 AM Status: COMPLETED Source: [facility] Attestation signed by Emelia Yoo MD at [...] Age: 69 y.o. : 1955 Account No.: [id number] Referring physician: Dr. Corbin Lopes Chief complaint: Recurreny pneumonia HPI Diana Cahmpion is a 69 y.o. female with PMHx of chronic hypoxic respiratory failure on 3L home O2, tracheobronchomalacia who is presenting to clinic for follow up. Patient was previously referred by Dr. Corbin Lopes of [facility] in June of 2024. Patient had been having frequent pneumonias requiring hospitalization thought to be secondary to dynamic airway collapse. Therefore we performed bronchoscopy with airway inspection on 07/02/2024 which showed severe tracheobronchomalacia with mucous plugging. She subsequently followed up post procedure and different treatment options were discussed. 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 Her family history is positive for COPD [...] Diagnosis Date Allergic rhinitis Anemia Asthma Cancer ([facility]) Chronic heart failure with preserved ejection fraction ([facility]) Chronic hypoxic respiratory failure ([facility]) Chronic kidney disease COPD (chronic obstructive pulmonary disease) ([facility]) Coronary artery disease Depression Diabetes mellitus ([facility]) Dyspnea GERD (gastroesophageal reflux disease) Hyperlipidemia Lumbar spondylosis Other secondary pulmonary hypertension ([facility]) Pneumonia Primary osteoarthritis [...] mouth every other day. Yes Historical Provider, hqmexlaexuz-jjvbbeqfd-bvplfepa 100-62.5-25 mcg blister with device Yes Historical [...] potassium chloride CR (K-Tab) 20 mEq ER tablet Take 20 mEq by mouth in the morning and at bedtime. Yes Historical Provider, pramipexole (Mirapex) 0.25 mg tablet TAKE 1 TABLET BY MOUTH ONCE DAILY EVERY EVENING (2-3 HOURS BEFORE BEDTIME) 03/06/24 Yes Historical Provider, pregabalin (Lyrica) 75 mg capsule TAKE 1 CAPSULE BY MOUTH IN THE MORNING AND 1 AT BEDTIME 05/06/24 Yes Historical Provider, solifenacin (VESIcare) 5 mg tablet Take 5 mg by mouth in the morning. 03/15/23 Yes Historical Provider, traMADol (Ultram) 50 mg tablet Take 50 mg by mouth every 12 (twelve) hours. 01/23/24 Yes Historical Provider, traZODone (Desyrel) 50 mg tablet Take 1 tablet by mouth in the morning. Yes Historical Provider, MD Gerardo Ellipta 200-62.5-25 mcg blister with device INHALE 1 PUFF ONCE DAILY RINSE MOUTH AFTER USE 01/17/23 Yes Historical Provider, Social history: reports that she has never smoked. She has never used smokeless tobacco. She reports that she does not currently use alcohol. She reports that she does not use drugs. Family History Problem Relation Name Age of Onset Heart failure Mother Heart disease Father Review of Systems: As per HPI Physical examination: No physical exam performed due to telemedicine Labs Results: Lab Results Component Value Date HGB 8.7 (L) 04/06/2020 HGB 9.1 (L) 03/31/2020 HGB 9.4 (L) 03/30/2020 HCT 27.3 (L) 04/06/2020 HCT 28.7 (L) 03/31/2020 HCT 28.6 (L) 03/30/2020 WBC 6.92 04/06/2020 WBC 7.50 03/31/2020 WBC 7.79 03/30/2020 BUN 18 04/06/2020 BUN 17 03/31/2020 BUN 18 03/30/2020 CO2 26 04/06/2020 CO2 26 03/31/2020 CO2 30 03/30/2020 PO2POC 86.0 08/30/2019 PO2POC 107.0 (H) 08/30/2019 PO2POC 170.0 (H) 08/30/2019 Radiology: No Chest X-ray results found for the past [address] results found for the past 12 months Assessment and Plan: Diagnoses and all orders for this visit: Tracheobronchomalacia Hx of Recurrent Pneumonias Chronic Hypoxic Respiratory Failure on 3L home O2 Plan: - Continue CPAP at nighttime for severe tracheobronchomalacia. Patient is tolerating it and benefiting from it - Continue supplemental O2 3L as patient is benefiting from it - Patient should continue routine follow-up with her primary lather apprentice Dr. Corbin Lopes - Follow up on as needed basis Total time spent was 30 minutes. The visit was initiated by the patient and conducted rqd-qwmo-fs-face with use of audio-only real time telephone communication between patient and provider for a virtual visit. Verbal consent to provide and bill for this service was obtained No signature was obtained due to the COVID-19 pandemic. UROLOGY OFFICE/CLINIC NOTE Observed: 08/2024 4:56 PM Status: F Source: [facility] Urology Office/Clinic Note Chief Complaint Mae Reese NP referral HPI Staff 69 year old female referred by Mae Reese NP for urge incontinence. Pt. seen [...] 235.894 lb BMI: 40.27 Assessment/Plan CHF - [facility] [place] CKD - Miguel COPD/Pulm - Marianne/Caneloballi. Required hospitalization in Aug. Colorectal CA 2003 [...] could include cysto, urodynamics, Botox, SNM. Orders: 53836 Measure Post Void residual urine and/or bladder capacity by US- non- imaging E&M of New Patient Moderate 45-59 Min 29495 Urine Culture Urnls Dip Stick Auto w/o Microscopy POC 45790 Follow-up With When Contact Information YARIEL BLOUNT PA-C, URL In 3 months [address] [place] [address] Additional Instructions: Patient Education Overactive [...] Daily Xalatan 0.005% Soln-Opth, 1 drop(s) Allergies fentaNYL (Hallucinations) Social History Alcohol Never., 10/15/2024 Substance Abuse Never., 10/15/2024 Tobacco Never (less than 100 in lifetime) Tobacco Use:., 10/15/2024 Family History Alcoholism: Brother. Arthritis: Sister. Lab Results Ambulatory Point of Care Results Bilirubin Urine Dipstick: Negative (10/15/24 14:25:00) Blood Urine Dipstick: Negative (10/15/24 14:25:00) Glucose Urine Dipstick: Negative (10/15/24 14:25:00) Ketones Urine Dipstick: Negative (10/15/24 14:25:00) Leukocytes Urine Dipstick: 2+ Moderate (10/15/24 14:25:00) Nitrite Urine Dipstick: Negative (10/15/24 14:25:00) Protein Urine Dipstick: Negative (10/15/24 14:25:00) Specific Watchung Urine Dipstick: <=1.005 (10/15/24 14:25:00) Urine Appearance Urine Dipstick: Clear (10/15/24:25:00) Urine Color Urine Dipstick: Light yellow (10/15/24 14:25:00) Urobilinogen Urine Dipstick: Normal 0.2-1 EU/dl (10/15/24:25:00) pH Urine Dipstick: 5.5 (10/15/24:25:00) Result Comment: Electronical ly Signed By: YARIEL BLOUNT PA-C.br\Date and Time Signed: 10/15/24 16:57 EST PATIENT EDUCATION Observed: 10/15/2024 4:56 PM Status: F Source: [facility] Patient Education Obstetrics and Gynecology Overactive Bladder, [...] health care provider. General instructions ??? Take jlod-zys-lyfbder and prescription medicines only as told by [...] your health care provider monitor your condition. ??? Keep all follow-up visits. This is important. Contact a health care provider if: ??? You have a fever or chills. ??? Your symptoms do not get better with treatment. ??? Your pain and discomfort get worse. ??? You have more frequent urges to urinate. Get help right away if: ??? You are not able to control your bladder. Summary ??? Overactive bladder refers to a condition in which a person has a sudden and frequent need to urinate. ??? Several conditions may lead to an overactive bladder. ??? Treatment for overactive bladder depends on the cause and severity of your condition. ??? Making lifestyle changes, doing Kegel exercises, keeping a log, and taking medicines can help with this condition. This information is not intended to replace advice given to you by your health care provider. Make sure you discuss any questions you have with your health care provider. Document Revised: 07/12/2021 Document Reviewed: 07/12/2021 Elsevier Patient Education ? 2023 [employer] C URINE Observed: 10/15/2024 3:40 PM Status: F Source: [facility] Microbiology PROCEDURE: Urine Culture [R1] SOURCE: U Random BODY SITE: COLLECTED DATE/TIME: 10/15/2024 15:40 EST RECEIVED DATE/TIME: 10/16/2024 17:42 EST START DATE/TIME: 10/16/2024 17:42 EST FREE TEXT SOURCE: YARIEL BLOUNT PA-C, PA-C, YARIEL Hester FINAL REPORTS Final Report [] Verified Date/Time: 10/18/2024 10:20 EST 25,000 cfu/ml Escherichia coli 25,000 cfu/ml Enterobacter cloacae 10,000 cfu/ml Klebsiella pneumoniae 5,000 cfu/ml Mixed skin contaminants SUSCEPTIBILITY RESULTS LEGEND: S=Susceptible, N/R=Not Reported, Blank=Data not available, [...] Locations R1: This test was performed at: [facility], [address] [place] [address], [address] [place] [address], Performed By: #### [id number] # ### [facility] [address] [place] [address] URINE Observed: 10/15/2024 3:40 PM Status: F Source: [facility] Microbiology PROCEDURE: Urine Culture [R1] SOURCE: U Random BODY SITE: COLLECTED DATE/TIME: 10/15/2024 15:40 EST RECEIVED DATE/TIME: 10/16/2024 17:42 EST START DATE/TIME: 10/16/2024 17:42 EST FREE TEXT SOURCE: YARIEL BLOUNT PA-C, PA-C, YARIEL Hester FINAL REPORTS Final Report [] Verified Date/Time: 10/18/2024 10:20 EST 25,000 cfu/ml Escherichia coli 25,000 cfu/ml Enterobacter cloacae 10,000 cfu/ml Klebsiella pneumoniae 5,000 cfu/ml Mixed skin contaminants SUSCEPTIBILITY RESULTS LEGEND: S=Susceptible, N/R=Not Reported, Blank=Data not available, [...] Locations R1: This test was performed at: [facility], [address] [place] [address], [address] [place] [address], Performed By: #### [id number] # ### [facility] [address] [place] [address] AMBULATORY VISIT SUMMARY Observed: 10/15 3:05 PM Status: F Source: [facility] Ambulatory Visit Summary DIANA CHAMPION :1955 Visit Date:10/15/2024 Ambulatory Visit Instructions Your Diagnosis Urge incontinence Your Care Team Attending Physician - YARIEL BLOUNT PA-C Primary Care Physician - ROSI ZAZUETA MD Referring Physician - GUANACO, MS. MAE CHAPA This Is Your Medications List albuterol (albuterol 0.083% Inh Meagan 3 mL) baclofen ferrous sulfate (ferrous sulfate 325 mg Tab) fluticasone/umeclidinium/vilanterol (fluticasone/umeclidinium/vilanterol 200 mcg-62.5 mcg-25 mcg/inh inhalation powder) furosemide [...] 9:40 AM EDT With: JOSE ALEJANDRO MICHAUD, YARIEL Hester Where: [facility] [address] [place] [address]- Medications What How Much When Instructions Unchanged [...] you for choosing us for your care. 36 Observed: 09/20/2024 11:21 AM Status: COMPLETED Source: [facility] Faxed to [facility]. Ticker put in for Nov 2024 for patient to be scheduled with Dr. Church. 36 Observed: 09/12/2024 11:57 AM Status: COMPLETED Source: [facility] Patient called requesting cl earance prior to cataract surgery. You saw her in May, and she had an echo shortly after (05/28/24 in remediation consultant). Please advise. Thanks. ALLERGIES DATE TYPE / CODE NAME / CODE REACTION SEVERITY SOURCE 07/07/2017 DRUG INGREDI/[id number](S NOMED CT) FENTANYL Other Medium [facility] /[id number](SNOMED CT) fentaNYL [id number] [facility] ENCOUNTERS ADMIT/DISCHARGE ACCOUNT NUMBER ADMITTING ENCOUNTER CLASS LOCATION SOURCE 07/22/2025/07/22/20 [id number] Ambulatory EU [place]:KINA Lewisoom : Exam 2 [facility] 07/16/2025/07/16/20 [id number] Ambulatory Building:NOM [facility] 07/08/2025/07/08/20 25 [id number] Ambulatory EU [place]:EU [place] [facility] 06/11/2025/06/11/20 25 [id number] Ambulatory EU [place]:EU [place] [facility] 05/19/2025/05/19/20 25 [id number] Ambulatory Building:[facility] 05/12/2025/05/12/20 25 [id number] [facility] [place]09[facility]04/09/20 25 [id number] Ambulatory Building:[facility] 03/24/2025/03/24/20 25 [id number] Ambulatory EU [place]:EU [place]azar[place]Room : CD:[id number] [address] [place] [address] 02/17/2025/02/18/20 25 [id number] Ambulatory Building:[facility] 01/23/2025/01/24/20 25 [id number] Ambulatory Building:[facility] 01/16/2025/01/17/20 25 [id number] Ambulatory Building:[facility] 01/02/2025/01/02/20 25 [id number] Ambulatory Building:[facility] 12/17/2024/12/17/19 25 [id number] Ambulatory Building:NOM S [facility] 12/17/2024/12/17/19 25 [id number] Ambulatory Building:[facility] 12/17/2024/12/17/19 25 [id number] Ambulatory Building:[facility] 12/17/2024/12/17/19 25 [id number] Ambulatory Building:[facility] 12/13/2024/12/13/19 25 [id number] Ambulatory Building:[facility] 11/28/2024/11/28/19 25 [id number] Ambulatory Building:[facility] 11/12/2024/11/12/19 [id number] Ambulatory Building:[facility] 10/17/2024/10/17/20 24 [id number] Ambulatory Buildin 0 [facility] 10/15/2024/10/15/20 24 [id number] YARIEL BLOUNT Ambulatory [facility] :FT LAB [facility] 10/15/2024/10/15/20 24 [id number] Ambulatory EU [place]:EU [place] : Exam 1 [facility] 10/11/2024/10/11/20 24 [id number] [facility] 10/08/2024 [id number] Ambulatory EU [place] [facility] 10/07/2024/10/07/20 24 [id number] Ambulatory Building:[facility] 09/12/2024/09/12/20 24 [id number] [facility] 09/05/2024/09/05/20 24 [id number] [facility] 08/19/2024/08/19/20 24 [id number] Ambulatory Building[facility] EPIC PAYERS ENCOUNTER GUARANTOR PAYER SUBSCRIBER SOURCE 07/22/2025 DIANA RENEEB: [address]Tel: ~~(4 1 (HP) Primary Insurance:AETNAPolicy Number: [id number] Date:8047-74-58UR [address] [place] [address]DK: DIANAJOSH CHAMPIONHUGH [facility] 07/22/2025 Secondary Insurance:MedicaidPoli cy Number: [id number] Date:0972-24-46FT [address], [place] [address]WH: DIANA KAY [facility] 07/16/2025 DIANA CHAMPIONDOB: [address], [place] [address]Hkv: (HP) Primary Insurance:[place] Number: [id number] Date:2024-12-07 DIANA CHAMPIONDOB: [id number], [place] [address] [facility] EPIC 07/16/2025 Secondary Insurance:AETNA MEDICARE ADVANTAGEPolicy Number: [id number] Date:2025-01-04 DIANA CHAMPIONDOB: [id number], [place] [address] [facility] EP[facility] 07/08/2025 DIANA CHAMPIONDOB: [address]Tel: ~~(4 1 (HP) Primary Insurance:AETNAPolicy Number: [id number] Date:6665-43-00[id number] [place] [address] [place] [address]WA: DIANA KAY [facility] 07/08/2025 Secondary Insurance:MedicaidPoli cy Number: [id number] Date:7980-59-93[address], [place] [address]PW: DIANA KAY [facility] 06/11/2025 DIANA CHAMPIONDOB: [id number]Tel: ~~(4 1 (HP) Primary Insurance:AETNAPolicy Number: [id number] Date:7934-37-38[address] [place] [address]PS: DIANA KAY [facility] 06/11/2025 Secondary Insurance:MedicaidPoli cy Number: [id number] Date:7336-70-87KR [address], [place] [address]WV: DIANA KAY [facility] 05/19/2025 DIANA Fan YACLIFFORDDOB: [address], [place] [address]Ogq: (HP) Primary Insurance:[place] Number: [id number] Date:2024-12-07 DIANA Fan YACLIFFORDDOB: [id number], [place] [address] [facility] 05/19/2025 Secondary Insurance:AETNA MEDICARE ADVANTAGEPolicy Number: [id number] Date:2025-01-04 DIANA CHAMPIONDOB: [id number], [place] [address] [facility] 05/12/2025 Diana Fan YacliffordDOB: [place] [address] Primary Insurance:AetnaPolicy Number: Effective Date:7290-93-31Pzxg Name:MEDP [address] [address]MK: Diana Fan YatesDOB: [id number] [place] [address] [facility] 05/12/2025 Secondary Insurance:MedicaidPoli cy Number: Effective Date:0977-46-42Rphd Name:MED [address] [address]OP: Diana Fan YatesDOB: [id number] [place] [address] [facility] 04/09/2025 DIANA CHAMPIONDOB: [address], [place] [address]Grk: (HP) Primary Insurance:[place]: [id number] Date:2024-12-07 DIANA CHAMPIONDOB: [id number], [place] [address] [facility] EPIC 04/09/2025 Secondary Insurance:AETNA MEDICARE ADVANTAGEPolicy Number: [id number] Date:2025-01-04 DIANA Fan YATESDOB: [id number], [place] [address] [facility] EPIC 03/24/2025 DIANA Fan YATESDOB: [address]Tel: ~~(4 1 (HP) Primary Insurance:AETNAPolicy Number: [id number] Date:[id number], [place] [address]WB: DIANA Fan [facility] 03/24/2025 Secondary Insurance:MedicaidPoli cy Number: [id number] Date:[id number] [address], [place] [address]CW: DIANA Fan [facility] 02/17/2025 DIANA CHAMPIONDOB: [address], [place] [address]Rgf: (HP) Primary Insurance:[place]: [id number] Date:2024-12-07 DIANA ESCOBARTESDOB: [id number], [place] [address] [facility] EPIC 02/17/2025 Secondary Insurance:AETNA MEDICARE ADVANTAGEPolicy Number: [id number] Date:2025-01-04 DIANA ESCOBARTESDOB: [id number], [place] [address] [facility] EPIC 01/23/2025 Primary Insurance:AETNA MEDICARE ADVANTAGEPolicy Number: [id number] Date:2025-01-04 DIANA CHAMPIONDOB: [id number], [place] [address] [facility] 01/23/2025 Secondary Insurance:[facility]ICAID [facility] [id number] Date:2024-12-07 DIANA Fan YATESDOB: [id number], [place] [address] [facility] 01/16/2025 DIANA Fan YATESDOB: [address], [place] [address]Awe: (HP) Primary Insurance:MEDICAID LAPolicy Number: [id number] Date:2024-12-07 DIANA Fan YATESDOB: [id number], [place] [address] [facility] EPIC 01/16/2025 Secondary Insurance:AETNA MEDICARE ADVANTAGEPolicy Number: [id number] Date:2025-01-04 DIANA ESCOBARTESDOB: [id number] [address] [facility] EPIC 01/02/2025 DIANA Fan YATESDOB: [address], [place] [address]Hqv: (HP) Primary Insurance:[place] MEDICARE ADVANTAGEPolicy Number: [id number] Date:2024-11-06 DIANA ESCOBARTESDOB: [id number], [place] [address] [facility] EPIC 12/17/2024 DIANA Fan YATESDOB: [address], [place] [address]Hpa: (HP) Primary Insurance:[place] MEDICARE ADVANTAGEPolicy Number: [id number] Date:2024-11-06 DIANA Fan YATESDOB: [id number], [place] [address] [facility] EPIC 12/17/2024 DIANA Fan YATESDOB: [address], [place] [address]Nxh: () Primary Insurance:[place] MEDICARE ADVANTAGEPolicy Number: [id number] Date:2024-11-06 DIANA Fan YATESDOB: [id number], [place] [address] [facility] EPIC 12/17/2024 DIANA Fan YATESDOB: [address], [place] [address]Qmt: () Primary Insurance:[place] MEDICARE ADVANTAGEPolicy Number: [id number] Date:2024-11-06 DIANA Fan YATESDOB: [id number], [place] [address] [facility] EPIC 12/17/2024 DIANA Fan YATESDOB: [address], [place] [address]Hla: () Primary Insurance:[place] MEDICARE ADVANTAGEPolicy Number: [id number] Date:2024-11-06 DIANA Fan YATESDOB: [id number] [address] [facility] EPIC 12/13/2024 DIANA Fan YATESDOB: [address], [place] [address]Bcx: () Primary Insurance:[place] MEDICARE ADVANTAGEPolicy Number: [id number] Date:2024-11-06 DIANA Fan YATESDOB: [id number] [address] [facility] EPIC 11/28/2024 DIANA Fan YATESDOB: [address] [address]Huq: (HP) Primary Insurance:[place] MEDICARE ADVANTAGEPolicy Number: [id number] Date:2024-11-06 DIANA Fan YATESDOB: [id number], [place] [address] [facility] 11/12/2024 DIANA ESCOBARTESDOB: [address], [place] [address]Kgl: (HP) Primary Insurance:[place] MEDICARE ADVANTAGEPolicy Number: [id number] Date:2024-11-06 DIANA CHAMPIONDOB: [id number], [place] [address] [facility] 10/17/2024 Primary Insurance:[place] MEDICAREPolicy Number: [id number] Date:2023-11-06 DIANA Fan YATESDOB: [id number], [place] [address] [facility] 10/15/2024 DIANA Fan YATESDOB: [address]Tel: ~~(4 1 (HP) Primary Insurance:MEDICARE BUC[place] HEALTHPLAN ADVANTAGEPolicy Number: [id number] Date:2024-10-15 DIANA KAY [facility] 10/15/2024 DIANA Fan YATESDOB: [address]Tel: ~~(4 1 (HP) Primary Insurance:MEDICARE [place] HEALTHPLAN ADVANTAGEPolicy Number: [id number] Date:1799-11-05 DIANA KAY [facility] 10/11/2024 DIANA CHAMPIONDOB: [address], [place] [address]Txa: (HP) Primary Insurance:WELLCARE MEDICAREPolicy Number: [id number] Date:2023-11-06 DIANA CHAMPIONDOB: [id number] [address] [facility] 10/07/2024 DIANA CHAMPIONDOB: [address] [address]Tgv: () Primary Insurance:WELLCARE MEDICAREPolicy Number: [id number] Date:2023-11-06 DIANA CHAMPIONDOB: [id number], [place] [address] [facility] 08/19/2024 DIANA CHAMPIONDOB: [address], [place] [address]Hsb: (HP) Primary Insurance:WELLCARE MEDICAREPolicy Number: [id number] Date:2023-11-06 DIANA CHAMPIONDOB: [id number], [place] [address] [facility]
--- OUTSIDE RECORDS SUMMARY | 2025-08-04 09:26 | XMS_ITS | Encounter Summary ---
Author Organization [facility] Address [address] [place] [address] Care Team Providers Care Supervisor Prepress Name Role Phone Ariella Mathis DO Unavailable [phone] Tapan Barboza MD Primary Care Provider [phone] Mae Reese LIQUID COMPOUNDER Unavailable [phone] Encounter Details Date Type Department Care Team (Late st Contact Info) Description 04/30/2025 Abstract [facility] [address] [place] [address] Kaylene López NP [address] [place] [address] Social History Tobacco Use Types Packs/Day Years [...] How often do you attend chur or mandaen services? More than 4 times [...] Recorded Patient Health Questionnaire-2 Score 0 07/11/2024 [facility] Occupat ional Health - Occupational [...] in a fpc (including now)? No 10/26/2023 Housing Stability Vital [...] were you homeless or living in a fpc (including now)? No 11/25/2024 Comments Unknown Sex and Gender Information Value Date Recorded Sex Assigned at Not on file Legal Sex Female 7:03 PM EDT Gender Identity Not on file Sexual Orientation Not on file documented as of this encounter Plan of Treatment Upcoming Encounters Date Type Department Care Team (Late st Contact Info) Description 07/16/2026 8:45 AM EDT Office Visit [facility] [place] [facility] [address] [place] [address] Denise Lazo MD [address] [place] [address] 12/15/2026 9:00 AM EST Office [facility] [address] [facility] [address] Yuri Bowers PA [address] [place] [address] documented as of this encounter [...] documented as of this encounter Care Teams Supervisor Prepress Relationship Specialty Start Date End Date Tapan Barboza MD [address] [place] [address] PCP - General Family Medicine 06/10/24 Ariella Mathis DO [address] [place] [address] Referring Physician Neurology 01/02/24 Mae Reese NP [address] [place] [address] Nurse Practitioner Family Medicine 06/10/24 documented as of this encounter
--- OUTSIDE RECORDS SUMMARY | 2025-08-04 09:26 | XMS_ITS | Encounter Summary ---
Author Organization [facility] Address [address] [place] [address] Care Team Providers Care Tobacco Wrapping Machine Tender Name Role Phone Ariella Mathis DO Unavailable [phone] Tapan Barboza MD Primary Care Provider [phone] Mae Reese TRICOT KNITTING MACHINE OPERATOR Unavailable [phone] Encounter Details Date Type Department Care Team (Late st Contact Info) Description 05/12/2025 Abstract [facility] [address] [place] [address] Kaylene López NP [address] [place] [place] [address] Social History Tobacco Use Types Packs/Day Years [...] any time in the past [address] [facility], were you homeless or living in a [...] [address] [place] [address] Denise Lazo MD [address] [place] [address] 12/15/2026 9:00 AM EST Office [facility] [address] [facility] [place] [address] Yuri Bowers PA [address] [place] [address] documented as of this encounter Goals [...] documented as of this encounter Care Teams Tobacco Wrapping Machine Tender Relationship Specialty Start Date End Date Tapan Barboza MD [address] [place] [address] PCP - General Family Medicine 06/10/24 Ariella Mathis DO [address] [place] [address] Referring Physician Neurology 01/02/24 Mae Reese NP [address] [place] [address] Nurse Practitioner Family Medicine 06/10/24 documented as of this encounter
--- OUTSIDE RECORDS SUMMARY | 2025-08-04 09:26 | XMS_ITS | Clinical Summary ---
Author Organization [facility] Address [facility] [place] [address] Care Team Providers Care Second Grade Teacher Name Role Phone Unavailable Primary Care Provider [...] on file 01/20/2021 Data from: [email or web address] Last address used for calculation Not [...] (1 - 1-dose 75+ series) 2031 Insurance [facility]
--- OUTSIDE RECORDS SUMMARY | 2025-08-04 09:26 | XMS_ITS | Encounter Summary ---
Author Organization [facility] Address [address] [place] [address] Care Team Providers Care Booster Pump Operator Name Role Phone Unavailable Primary Care Provider Unavailabl e Source Comments In the event this information is protected by the Federal Confidentiality of Alcohol and Drug AbusePatient Records regulations: The Federal rules restrict any use of the information to criminally investigate or prosecute any alcohol or drug abuse patient.[facility] Encounter Details Date Type Department Care [...]
--- OUTSIDE RECORDS SUMMARY | 2025-08-04 09:26 | XMS_ITS | Encounter Summary ---
Author Organization [facility] Address [address] [place] [address] Care Team Providers Care Water Operator Name Role Phone Shaikh BONNY Ohara Primary Care Provider [phone] Ariella Mathis DO Unavailable [phone] Tapan Barboza MD Primary Care Provider Mae Reese CATARACT LENS GENERATOR Unavailable [phone] Encounter Details Date Type Department Care Team (Late st Contact Info) Description 01/26/2024 Clinisync Result Encounter [facility] External Department Unsolicited Shaikh Ohara MD [address] [place] [address] Social History Tobacco Use Types Packs/Day Years [...] 10/26/2023 How often do you attend [facility] or judaism services? More than 4 times per year 10/26/2023 Do you belong to any clubs o r organizations such as scientology groups, unions, fraternal or athletic groups, or [...] Recorded Patient Health Questionnaire-2 Score 0 01/25/2024 [facility]at [facility] Health - Occupational Stress [...] Description 07/16/2026 8:45 AM EDT Office Visit [facility] [address] [place] [address] Denise Lazo MD [address] [place] [address] 12/15/2026 9:00 AM EST Office Visit [facility] [address] [place] [address] Yuri Bowers PA [address] [place] [address] documented as of this encounter Procedures Procedure Name Priority Date/Time Associated Diagnosis Comments XR LUMBAR SPINE 2 OR 3V 01/26/2024 7:39 AM EDT documented in this encounter Results * XR LUMBAR SPINE 2 OR 3V (01/26/2024 7:39 AM EDT) Anatomical Region Laterality Modality Radiographic Melania ging 01/26/2024 7:39 AM EDT Narrative 01/26/2024 7:41 [place] [address] XRay Report Signed Patient: DIANA CHAMPION MR#: [id number] : 1955 Acct:[id number] Age/Sex: 68 / F ADM Date: 01/25/24 Loc: RAD Attending Dr: Shaikh Lev Velasquez Ordering Physician: Shaikh Eva Ohara Date of Service: 01/25/24 Procedure(s): XR lumbar spine 2-3V Accession Number(s): [id number] cc: Shaikh Eva Ohara The [address] [address] Patient Name: DIANA CHAMPION MRN: [id number] date: 1955 Sex: F Assigned Patient Location: [facility] Current Patient Location: Accession/Order Number: [id number] Exam Date: 01/25/2024 12:50 Report Date: 01/26/2024 [...] Signed By: 01/26/24 0741 DD/ 0739 TD/TT: Bell Hole Digger: Procedure Note Radiology, Radiologist, MD - 01/26/2024 [place] [address] XRay Report Signed Patient: DIANA CHAMPION AMR#: [id number] : 1955cct:[id number] Age/Sex: 68 / FADM Date: 01/25/24 Loc: RAD Attending Dr: Shaikh Lev Velasquez Ordering Physician: Shaikh Eva Ohara Date of Service: 01/25/24 Procedure(s): XR lumbar spine 2-3V Accession Number(s): [id number] cc: Shaikh Eva Ohara The [place] [id number] Patient Name: DIANA CHAMPION MRN: [facility]:[id number] date: 1955 Sex: F Assigned Patient Location: [facility] Current Patient Location: Accession/Order Number: [id number] Exam Date: 01/25/2024 12:50 Report Date: 01/26/2024 [...] Michael Patel M.D. Signed By:01/26/2441 DD/ TD/TT: Bell Hole Digger: Shaikh Lev DRAPER IMG XR PROCEDURES Final Result documented in this encounter Visit Diagnoses Not on filedocumented in this encounter Additional Health Concerns Assessment Noted Time PHQ-9 Depression Total Score: 7 11/02/20 23 3:03 PM EST documented as of this encounter Care Teams Water Operator Relationship Specialty Start Date End Date Shaikh Ohara MD [address] [place] [address] PCP - General Internal Medicine 12/28/23 06/09/24 Tapan Barboza MD [address] [place] [address] PCP - General Family Medicine 06/10/24 Ariella Mathis DO [address] [place] [address] Referring Physician Neurology 01/02/24 Mae Reese NP [address] [place] [address] Nurse Practitioner Family Medicine 06/10/24 documented as of this encounter
--- OUTSIDE RECORDS SUMMARY | 2025-08-04 09:26 | XMS_ITS | Encounter Summary ---
Author Organization [facility] Address [address] [facility] [place] [address] Care Team Providers Care Manager Fine Name Role Phone Shaikh BONNY Ohara Primary Care Provider [phone] Ariella Mathis DO Unavailable [phone] Tapan Barboza MD Primary Care Provider [phone] Mae Reese CREDIT UNION MANAGER Unavailable [phone] Encounter Details Date Type Department Care Team [...] How often do you attend chur or yarsani services? More than 4 times per year [...] Recorded Patient Health Questionnaire-2 Score 0 01/25/2024 [facility] of Occupat ional Health - Occupational [...] Visit [facility] [address] [facility] [address] [place] [address] Denise Lazo MD [address] [facility] [address] [place] [address] 12/15/2026 9:00 AM EST Office Visit [facility] [address] [place] [address] Yuri Bowers PA [address] [place] [address] documented as of this encounter Procedures Procedure Name Priority Date/Time Associated Diagnosis Comments XR CHEST 1 V 02/03/2024 9:41 AM EDT documented in this encounter Results * XR CHEST 1 V (02/03/2024 9:41 AM EDT) Anatomical Region Laterality Modality Other 02/03/2024 9:41 AM EDT Narrative 02/03/2024 9:43 [place] [address] XRay Report Signed Patient: DIANA CHAMPION MR#: [id number] : 1955 Acct:[id number] Age/Sex: 68 / F ADM Date: Loc: ER Attending Dr: Ordering Physician: Tere Rodriguez Date of Service: 02/03/24 Procedure(s): XR chest 1V Accession Number(s): [id number] cc: Shaikh Eva Ohara; Tere Rodriguez [place] [id number] Patient Name: DIANA CHAMPION MRN: [id number] date: 1955 Sex: F Assigned Patient Location: ED.MAIN Current Patient Location: ER Accession/Order Number: [id number] Exam Date: 02/03/2024 09:15 Report Date: 02/03/2024 [...] M.D. Signed By: 02/03/24942 DD/ 0 TD/TT: Lead Consultant: Procedure Note Radiology, Radiologist, - 02/07/[address] [address] XRay Report Signed Patient: DIANA CHAMPION AMR#: [id number] : 1955cct:[id number] Age/Sex: 68 / FADM Date: Loc: ER Attending Dr: Ordering Physician: Tere Rodriguez Date of Service: 02/03/24 Procedure(s): XR chest 1V Accession Number(s): [id number] cc: Shaikh Eva Ohara; Tere Rodriguez [address] [address] Patient Name: DIANA CHAMPION MRN: [facility]:[id number] date: 1955 Sex: F Assigned Patient Location: ED.MAIN Current Patient Location: ER Accession/Order Number: [id number] Exam Date: 02/03/2024 09:15 Report Date: 02/03/2024 [...] Tillman M.D. Signed By:02/03/24942 DD/ 0 TD/TT: Lead Consultant: us Generic External Data Provider [facility] Final Result documented in this encounter Visit Diagnoses Not on filedocumented in this encounter Additional Health Concerns Assessment Noted Time PHQ-9 Depression Total Score: 7 11/02/20 23 3:03 PM EST documented as of this encounter Care Teams Manager Fine Relationship Specialty Start Date End Date Shaikh Ohara MD [address] [place] [address] PCP - General Internal Medicine 12/28/23 06/09/24 Tapan Barboza MD [address] [place] [address] PCP - General Family Medicine 06/10/24 Ariella Mahtis DO [address] [place] [address] Referring Physician Neurology 01/02/24 Mae Reese NP [address] [place] [address] Nurse Practitioner Family Medicine 06/10/24 documented as of this encounter
--- OUTSIDE RECORDS SUMMARY | 2025-08-04 09:26 | XMS_ITS | Encounter Summary ---
Author Organization [facility] Address [address] [place] [address] Care Team Providers Care Education Supervisor Name Role Phone Ariella Mathis DO Unavailable [phone] Tapan Barboza MD Primary Care Provider [phone] Mae Reese LABORER [employer] Unavailable [phone] Encounter Details Date Type Department Care Team (Late st Contact Info) Description 07/15/2024 Orders Only [facility] [address] [facility] [place] [address] Opioid use Social History Tobacco Use Types [...] Visit [facility] [address] [facility] [address] [place] [address] Denise Lazo MD [address] [place] [address] 12/15/2026 9:00 AM EST Office Visit [facility] [address] [place] [address] Yuri Bowers PA [address] [place] [address] documented as of this encounter Visit Diagnoses Diagnosis Opioid use documented in this encounter Additional Health Concerns Assessment Noted Time PHQ-9 Depression Total Score: 7 11/02/20 23 3:03 PM EST documented as of this encounter Care Teams Education Supervisor Relationship Specialty Start Date End Date Tapan Barboza MD [address] [place] [address] PCP - General Family Medicine 06/10/24 Ariella Mathis DO [address] [place] [address] Referring Physician Neurology 01/02/24 Mae Reese NP [address] [place] [address] Nurse Practitioner Family Medicine 06/10/24 documented as of this encounter
--- OUTSIDE RECORDS SUMMARY | 2025-08-04 09:26 | XMS_ITS | Encounter Summary ---
Author Organization [facility] Address [address] [place] [address] Care Team Providers Care Kindergarten Teacher Assistant Name Role Phone Ariella Mathis DO Unavailable [phone] Tapan Barboza MD Primary Care Provider [phone] Mae Reese AUTO CLUTCH SPECIALIST Unavailable [phone] Encounter Details Date Type Department Care Team (Late st Contact Info) Description 08/12/2024 Orders Only [facility] [address] [place] [address] Shaikh Ohara MD [address] [place] [address] Social History Tobacco Use Types Packs/Day Years [...] you attend [facility] or protestant services? More than 4 times per year [...] Recorded Patient Health Questionnaire-2 Score 0 07/11/2024 [facility] Occupat ional Health - Occupational Stress [...] Dermatology [address] [place] [address] Denise Lazo MD [address] [place] [address] 12/15/2026 9:00 AM EST Office Visit [facility] [address] [place] [address] Yuri Bowers PA [address] [place] [address] documented as of this encounter Goals Goal [...] documented as of this encounter Care Teams Kindergarten Teacher Assistant Relationship Specialty Start Date End Date Tapan Barboza MD [address] [place] [address] PCP - General Family Medicine 06/10/24 Ariella Mathis DO [address] [place] [address] Referring Physician Neurology 01/02/24 Mae Reese NP [address] [place] [address] Nurse Practitioner Family Medicine 06/10/24 documented as of this encounter
--- OUTSIDE RECORDS SUMMARY | 2025-08-04 09:26 | XMS_ITS | Encounter Summary ---
Author Organization [facility] Address [address] [place] [place] [address] Care Team Providers Care Inventory Accountant Name Role Phone Ariella Mathis DO Unavailable [phone] Tapan Barboza MD Primary Care Provider [phone] Mae Reese OCCUPATIONAL PSYCHOLOGIST Unavailable [phone] Encounter Details Date Type Department Care Team (Late st Contact Info) Description 05/22/2025 Abstract [facility] [address] [place] [address] Kaylene López NP [address] [place] [address] Social History Tobacco Use Types Packs/Day Years [...] How often do you attend chur or holiness services? More than 4 times per year 11/25/2024 Do you belong to any clubs o r organizations such as catholic groups, unions, fraternal or athletic groups, or [...] Recorded Patient Health Questionnaire-2 Score 0 07/11/2024 [facility] of Occupat ional Health - [...] in the past [address] [facility], were you homeless or living [...] [address] [place] [address] Denise Lazo MD [address] [place] [address] 12/15/2026 9:00 AM EST Office [facility] [address] [place] [address] Yuri Bowers PA [address] [place] [address] documented as of this encounter Goals [...] documented as of this encounter Care Teams Inventory Accountant Relationship Specialty Start Date End Date Tapan Barboza MD [address] [place] [address] PCP - General Family Medicine 06/10/24 Ariella Mathis DO [address] [place] [address] Referring Physician Neurology 01/02/24 Mae Reese NP [address] [place] [address] Nurse Practitioner Family Medicine 06/10/24 documented as of this encounter
--- OUTSIDE RECORDS SUMMARY | 2025-08-04 09:26 | XMS_ITS | Encounter Summary ---
Author Organization [facility] Address [address] [place] [address] Care Team Providers Care Art Gallery Internship Name Role Phone Ariella Mathis DO Unavailable [phone] Tapan Barboza MD Primary Care Provider Mae Reese SUPERVISOR ENGRAVING Unavailable Encounter Details Date Type Department Care Team (Late st Contact Info) Description 12/10/2024 Abstract [facility] [address] [facility] [place] [address] Mae Reese NP Social History Tobacco Use [...] week 11/25/2024 How often do you attend [facility] or rastafarian services? More than 4 times per year [...] Recorded Patient Health Questionnaire-2 Score 0 07/11/2024 [facility] of Occupat ional Health - Occupational Stress [...] any time in the past 12 m [facility], were you homeless or [...] Dermatology [address] [place] [address] Denise Lazo MD [address] [place] [address] 12/15/2026 9:00 AM EST Office [facility] [address] [place] [address] Yuri Bowers PA [address] [place] [address] documented as of this encounter Goals [...] documented as of this encounter Care Teams Art Gallery Internship Relationship Specialty Start Date End Date Tapan Barboza MD [address] [place] [address] PCP - General Family Medicine 06/10/24 Ariella Mathis DO [address] [place] [address] Referring Physician Neurology 01/02/24 Mae Reese NP [address] [place] [address] Nurse Practitioner Family Medicine 06/10/24 documented as of this encounter
--- OUTSIDE RECORDS SUMMARY | 2025-08-04 09:26 | XMS_ITS | Encounter Summary ---
Author Organization [facility] Address [facility] [place] [place] [address] Care Team Providers Care Periodicals Library Assistant Name Role Phone Unavailable Primary Care Provider Unavailabl e Source Comments In the event this information is protected by the Federal Confidentiality of Alcohol and Drug AbusePatient Records regulations: The Federal rules restrict any use of the information to criminally investigate or prosecute any alcohol or drug abuse patient.[facility] Encounter Details Date Type Department Care Team (Late st Contact Info) Description 2021 [place] [address] Provider, f Medicare Coverage of Physical Exams [...] N ot on file 01/20/2021 Data from: [email or web address].[email or web address] Last address used for calculation Not [...]
--- OUTSIDE RECORDS SUMMARY | 2025-08-04 09:26 | XMS_ITS | Encounter Summary ---
Author Organization [facility] Address [address] [facility] [place] [address] Care Team Providers Care Orchard Sprayer Name Role Phone Shaikh BONNY Ohara Primary Care Provider [phone] Shaikh BONNY Ohara Primary Care Provider [phone] Ariella Mathis DO Unavailable [phone] Tapan Barboza MD Primary Care Provider [phone] Mae Reese LOGGING CREW FOREMAN Unavailable [phone] Encounter Details Date Type Department Care Team [...] organizations such as oriental orthodox groups, unions, fraDr. Tariff or athletic groups, or school groups? No [...] care, and heating? Not very hard 10/26/2023 [facility] of Occupat ional Health - [...] Dermatology [address] [place] [address] Denise Lazo MD [address] [place] [address] 12/15/2026 9:00 AM EST [facility] [place] [facility] [address] [place] [address] Yuri Bowers PA [address] [place] [address] documented as of this encounter Procedures Procedure Name Priority Date/Time Associated Diagnosis Comments XR CHEST 2V 10/25/2023 9:45 AM EST documented in this encounter Results * XR CHEST 2V (10/25/2023 9:45 AM EST) Anatomical Region Laterality Modality Other 10/25/2023 9:45 AM EST Narrative 10/25/2023 9:48 [place] [address] XRay Report Signed Patient: DIANA CHAMPION MR#: [id number] : 1955 Acct:[id number] Age/Sex: 68 / F ADM Date: 10/25/23 Loc: RAD Attending Dr: Bo Mcclain D.O. Ordering Physician: Bo Mcclain D.O. Date of Service: 10/25/23 Procedure(s): XR chest 2V Accession Number(s): [id number] cc: Shaikh Eva Ohara; Bo Mcclain D.O. [address] [id number] Patient Name: DIANA CHAMPION MRN: [id number] date: 1955 Sex: F Assigned Patient Location: RAD Current Patient Location: RAD Accession/Order Number: [id number] Exam Date: 10/25/2023 09:31 Report Date: 10/25/2023 [...] M.D. Signed By: 10/25/2348 DD/ 4 TD/TT: Data Manager: Procedure Note Radiology, Radiologist, - 10/25/2023 [place] [address] XRay Report Signed Patient: DIANA CHAMPION AMR#: [id number] : 1955cct:[id number] Age/Sex: 68 / FADM Date: 10/25/23 Loc: RAD Attending Dr: Bo Mcclain D.O. Ordering Physician: Bo Mcclain D.O. Date of Service: 10/25/23 Procedure(s): XR chest 2V Accession Number(s): [id number] cc: Shaikh Eva Ohara; Bo Mcclain D.O. The [address] [address] Patient Name: DIANA CHAMPINO MRN: [id number] date: 1955 Sex: F Assigned Patient Location: [facility] Current Patient Location: [facility] Accession/Order Number: [id number] Exam Date: 10/25/2023 09:31 Report Date: 10/25/2023 [...] Stephens M.D. Signed By:10/25/23947 DD/ 4 TD/TT: Data Manager: us Generic External Data Provider [facility] Final Result documented in this encounter Visit Diagnoses Not on filedocumented in this encounter Care Teams Orchard Sprayer Relationship Specialty Start Date End Date Shaikh Ohara MD PCP - General Internal Medicine 11/06/22 12/27/23 Shaikh Ohara MD [address] [place] [address] PCP - General Internal Medicine 12/28/23 06/09/24 Tapan Barboza MD [address] [place] [address] PCP - General Family Medicine 06/10/24 Ariella Mathis DO [address] [place] [address] Referring Physician Neurology 01/02/24 Mae Reese NP [address] [place] [address] Nurse Practitioner Family Medicine 06/10/24 documented as of this encounter
--- OUTSIDE RECORDS SUMMARY | 2025-08-04 09:26 | XMS_ITS | Encounter Summary ---
Author Organization [facility] Address [address] [place] [address] Care Team Providers Care Research Test Engine Evaluator Name Role Phone Ariella Mathis DO Unavailable [phone] Tapan Barboza MD Primary Care Provider [phone] Mae Reese FRUIT PICKER Unavailable [phone] Encounter Details Date Type Department Care Team (Late st Contact Info) Description 05/15/2025 Abstract [facility] [address] [place] [address] Kaylene López NP [address] [place] [address] Social History Tobacco Use Types Packs/Day Years [...] How often do you attend chur or episcopalian services? More than 4 times per year 11/25/2024 Do you belong to any clubs o r organizations such as sabianist groups, unions, fraternal or athletic groups, or [...] Patient Health Questionnaire-2 Score 0 07/11/2024 [facility] of Occupat ional Health - [...] [address] [place] [address] Denise Lazo MD [address] [place] [address] 12/15/2026 9:00 AM EST Office [facility] [address] [place] [address] Yuri Bowers PA [address] [place] [address] documented as of [...] documented as of this encounter Care Teams Research Test Engine Evaluator Relationship Specialty Start Date End Date Tapan Barboza MD [address] [place] [address] PCP - General Family Medicine 06/10/24 Ariella Mathis DO [address] [place] [address] Referring Physician Neurology 01/02/24 Mae Reese NP [address] [place] [address] Nurse Practitioner Family Medicine 06/10/24 documented as of this encounter
--- OUTSIDE RECORDS SUMMARY | 2025-08-04 09:26 | XMS_ITS | Clinical Summary ---
Author Organization [facility] Address [address] [place] [address] Care Team Providers Care Sign Builder Supervisor Name Role Phone Ariella Mathis DO Unavailable [phone] Tapan Barboza MD Primary Care Provider [phone] Mae Reese CHEESE COOKER Unavailable [phone] Allergies Active Allergy Reactions Criticality Noted Date Comments Fentanyl 07/07/2017 Other Reaction(s): Hallucinating Vancomycin Unknown 09/05/2024 Medications montelukast (Singulair) 10 MG tablet Take 10 mg by mouth 1 (one) time each day Active guaiFENesin (Mucinex) 600 MG 12 hr tablet Take 1,200 mg by mouth in the morning and 1,200 mg before bedtime. Do not crush, chew, or split. . Active albuterol HFA 90 mcg/act inhaler Inhale 2 puffs every 4 (four) hours if needed for shortness of breath Active Multiple Vitamin (multivitamin) tablet Take 1 tablet by mouth Daily Active ferrous sulfate 325 (65 Fe) MG tablet Take 325 mg by mouth in the morning. Take with meals. Active albuterol (2.5 MG/3ML) 0.083% nebulizer solution Take 2.5 mg by nebulization every 6 (six) hours if needed for wheezing Active MAGnesium-Oxide 400 (240 Mg) MG tablet Take 400 mg by mouth Daily 4 Active sodium chloride 0.9 % nebulizer solution Take 3 mL by nebulization in the morning and 3 mL before bedtime. 4 Active latanoprost (Xalatan) 0.005 % ophthalmic solution 4 Active omeprazole (PriLOSEC) [address] capsuleIndicati ons:Gastroesoph ageal reflux disease without esophagitis Take 1 capsule (20 mg) by mouth every 12 (twelve) hours 180 capsule 1 5 Active trospium (Sanctura XR) 60 MG 24 hour capsule Take 60 mg by mouth Daily Active Ensifentrine (Ohtuvayre) 3 MG/2.5ML suspension every 12 (twelve) hours 5 Active Breztri Aerosphere 160-9-4.8 MCG/ACT aerosol every 12 (twelve) hours 5 Active baclofen (Lioresal) 10 MG tabletIndicatio ns:Chronic bilateral low back pain without sciatica Take 1 tablet (10 mg) by mouth in the morning and 1 tablet (10 mg) in the evening and 1 tablet (10 mg) before bedtime. 90 tablet 2 5 Active pregabalin (Lyrica) 75 MG capsuleIndicati ons:Restless leg syndrome Take 1 capsule (75 mg) by mouth in the morning and 1 capsule (75 mg) before bedtime. 60 capsule 3 5 Active furosemide (Lasix) 20 MG tabletIndicatio ns:Edema of both lower extremities Take 1 tablet (20 mg) by mouth Daily 90 tablet 1 5 08/10/20 25 Active fluticasone (Flonase) 50 MCG/ACT nasal spray Administer 2 sprays into each nostril Daily 5 Active PARoxetine (Paxil) 40 MG tabletIndicatio ns:Moderate episode of recurrent major depressive disorder (HCC) Take 1 tablet (40 mg) by mouth in the morning. 90 tablet 1 5 08/17/20 25 Active pramipexole (Mirapex) 0.25 MG tabletIndicatio ns:RLS (restless legs syndrome) Take 1 tablet (0.25 mg) by mouth as needed at bedtime (Restless leg) 90 tablet 1 5 11/15/19 26 Active traZODone (Desyrel) 100 MG tabletIndicatio ns:Moderate episode of recurrent major depressive disorder (HCC) Take 1 tablet (100 mg) by mouth at bedtime TAKE 1 TABLET BY MOUTH AT BEDTIME 90 tablet 1 5 08/17/20 25 Active buPROPion XL (Wellbutrin XL) 150 MG 24 hr tabletIndicatio ns:Moderate episode of recurrent major depressive disorder (HCC) Take 1 tablet (150 mg) by mouth in the morning. Do not crush, chew, or split. 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 Assessment & Plan (01/16/2025 10:31 AM EDT): [...] severe persistent asthma and was discharged from [facility] 3 days ago for acute respiratory failure [...] significantly elevated right sided pressure at 65 [facility] Cardiology Assessment & Plan (01/16/2025 10:31 AM EDT): Last ECHO currently in the chart is form 7/: EF 50%, significantly elevated right sided pressure at 65 [facility] Cardiology Assessment & Plan (07/11/2024 8:54 AM EDT): Follows Cardiology- [facility] Was seen in May 2024 Lasix [...] and inhaler, trelegy, oxygen Follows with Pulmonology [facility] Assessment & Plan (02/17/2025 6:08 AM EDT): Current meds: albuterol nebs and inhaler, trelegy, oxygen Follows with Pulmonology [facility] Assessment & Plan (01/02/2025 3:25 PM EST): 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 Was treated [...] conditions and weakness will send her to [facility] ER for evaluation DD: pneumonia, covid, flu, [...] prednisone, I directed her to go to [facility] for direct admission. I spoke to case [...] with Pulm and she will discuss possibly fdc prednisone for her severe Asthma/COPD. Patient instructed [...] 10:34 AM EST): Recent hospital admission at [facility] for acute resp failure due to Pneumonia, [...] will also inform the ED provider at [facility] and update them on the reason for [...] finished her oral abx prescribed by her clean rice broker. Continues to have bronchospasm, wheezing, chest tightness [...] (12/05/2023): Added automatically from request for surgery [id number] Added automatically from request for surgery [id number] Arthritis of right knee 10/17/2018 06/0 02/2025 Lumbar spondylosis 05/22/2018 Overview (12/05/2023): Added automatically from request for surgery [id number] Added automatically from request for surgery [id number] Encounters Date Type Department Care Team Description 07/16/2025 2:45 PM EDT Office Visit [facility] [place] [facility] [address] [place] [address] Denise Lazo MD Seborrheic keratosis (Primary Dx); Lentigines; History of SCC (squamous cell carcinoma) of skin 07/16/2025 Bamboo flowsheet [facility] [address] [place] [address] Denise Lazo MD 07/16/2025 Travel 06/18/2025 Refill [facility] [address] [place] [address] Kaylene López NP Moderate episode of recurrent major depressive disorder (HCC) 06/16/2025 Telephone [facility] [address] [place] [address] Kaylene López NP 06/04/2025 Refill [facility] [address] [place] [address] Kaylene López NP Skin pustule 05/22/2025 Abstract [facility] [address] [place] [address] Kaylene López NP 05/19/2025 9:00 AM EDT Office Visit [facility] [address] [place] [address] Kaylene López NP Moderate episode of recurrent major depressive disorder (HCC) (Primary Dx); Morbid (severe) obesity due to excess calories ([facility]-HCC); Candidiasis of breast; Skin pustule; RLS (restless legs syndrome) 05/19/2025 Telephone [facility] [address] [place] [address] Kaylene López, RIKKI 05/19/2025 Bamboo flowsheet [facility] [address] [place] [address] Kaylene López, RIKKI 05/16/2025 Travel 05/15/2025 Abstract [facility] [address] [place] [address] Kaylene López, RIKKI 05/12/2025 Abstract [facility] [address] [place] [address] Kaylene López, RIKKI 05/12/2025 Refill [facility] [address] [place] [address] Kaylene López, RIKKI Chronic heart failure with preserved ejection fraction (HCC) (Primary Dx); Edema of both lower extremities 05/12/2025 Telephone [facility] [address] [place] [address] Kaylene López NP from Last 3 Months Immunizations Immunization Administration Dates Next Due Influenza, High Dose Seasona l, Preservative Free 09/06/2024 Influenza, High-dose Seasona l, Quadrivalent, Preservative Free 08/26/2023,08/04/2022,08/06/2021 Influenza, Split (incl. africa fied surface antigen) 08/09/2017 Influenza, Unspecified 09/06/2024,2022,08/04/2022,08/06,08/07/2020,08/09/2019,08/08/2018 ,08/10/2017 Influenza, injectable, quadr ivalent, preservative free 08/07/2020,08/09/2019,08/08/2018,08/10 Novel [id number], preservative-free 09/02/2009 Pneumococcal Conjugate PCV 20 08/09/2023 [...] 11/25/2024 How often do you attend chur ch or rastafarian services? More than 4 times [...] Recorded Patient Health Questionnaire-2 Score 0 07/11/2024 [facility]at [facility] - Occupational Stress Questionnaire Answer Date Recorded [...] in a custodial (including now)? No 10/26/2023 Housing Stability Vital [...] the past 12 m [facility], were you homeless or living in a custodial (including now)? No 11/25/2024 Comments Unknown Sex [...] Dermatology [address] [place] [address] Denise Lazo MD [address] [place] [address] 12/15/2026 9:00 AM EST Office Visit [facility] [address] [place] [address] Yuri Bowers PA [address] [place] [address] Health Maintenance Due Date Last Done Comments CT Colonography 1955 FIT-DNA 1955 FIT 1955 FOBT 1955 Sigmoidoscopy 1955 Influenza Vaccine (#1) 2025 4, 09/06/2024, 08/26/2023, Additional history exists Mammogram 03/03/2026 03/03/2025, 2 03/2024, 12/15/2022, Additional history exists Colonoscopy 12/08/2032 12/08/2022 Colorectal Cancer Screening 12/08/2032 Pneumococcal Vaccine: 65+ Years Completed 3, 10/19/2018 Goals Goal Patient Goal Type Associated Problems Recent Progress Patient-Stated? Author Help patient manage antidepressant medication Care Plan Patient on antidepressant monitoring plan Katerina Carrington Procedures Procedure Name Priority Date/Time Associated Diagnosis Comments BI MAMMOGRAM SCREENING BILATERAL 03/03/2025 4:42 PM EDT from Last 3 Months or Most Recently Relevant to Health Maintenance Results * Bilateral screening mammogram (03/03/2025 4:42 PM EDT) Anatomical Region Laterality Modality Breast Bilateral Mammography 03/03/2025 4:42 PM EDT Narrative 03/03/2025 4:43 PM EDT The [address] [address] Mammography Report Signed Patient: DIANA CHAMPION MR#: [id number] : 1955 Acct:[id number] Age/Sex: 69 / F ADM Date: 03/03/25 Loc: MAMMO Attending Dr: Kaylene López NP Ordering Physician: Kaylene López NP Results: Date of Service: 03/03/25 Follow Up: Procedure(s): MM screening mammo BI Accession Number(s): [id number] cc: Kaylene López NP Patient Name: DIANA CHAMPION MR#: [id number] : 1955 Exam Date: 03/03/2025 Ordering Doctor: [...] radiation, chemotherapy Family Cancers None LOCATION: [facility] BREAST COMPOSITION: The breasts are [...] M.D. Signed By: 03/03/251642 DD/ 41 TD/TT: Snath Handle Assembler: Procedure Note Radiology, Radiologist, MD - 03/03/2025 [place] [address] Mammography Report Signed Patient: DIANA CHAMPION AMR#: [id number] : 1955cct:[id number] Age/Sex: 69 / FADM Date: 03/03/25 Loc: MAMMO Attending Dr: Kaylene López NP Ordering Physician: Kaylene Lópezesults: Date of Service: 03/03/25Follow Up: Procedure(s): MM screening mammo BI Accession Number(s): [id number] cc: Kaylene López NP Patient Name: DIANA CHAMPION MR#: [id number] : 1955 Exam Date: 03/03/2025 Ordering Doctor: CLEO López CNP RADIOLOGY REPORT PROCEDURE: MM SCREENING MAMMO BI COMPARISON: MM TOMOSYNTHESIS SCREENING BI, 02/28/2024. MG MAMM [id number] PRATEEK CAD, 12/15/2022. MG MAMM SCREEN 3D PRATEEK CAD, 11/26/2021. MG MAMM BILSCRN W CAD DIG, 12/16/2013. INDICATIONS: Screening Calculator Name NCI Breast Cancer Risk Assessment Tool 5 Year Breast Cancer Risk 1.20% Lifetime Breast Cancer Risk 4.00% Personal Breast Cancer No Personal Ovarian Cancer No Treatments Excision, radiation, chemotherapy Family Cancers None LOCATION: The [facility] BREAST COMPOSITION: The breasts are [...] Medina M.D. Signed By:03/03/251642 DD/ 41 TD/TT: Snath Handle Assembler: Kaylene López NP IMG BI PROCEDURES Final Result from Last 3 Months or Most Recently Relevant to Health Maintenance Additional Health Concerns Active Problems Noted Date Diagnosed Date Patient on antidepressant monitoring plan 2023 Insurance MEDICAID [place] AET[place] MEDICARE ADVANTAGE Care Teams Sign Builder Supervisor Relationship Specialty Start Date End Date Tapan Barboza MD [address] [place] [address] PCP - General Family Medicine 06/10/24 Ariella Mathis DO [address] [place] [address] Referring Physician Neurology 01/02/24 Mae Reese NP [address] [place] [address] Nurse Practitioner Family Medicine 06/10/24
--- OUTSIDE RECORDS SUMMARY | 2025-08-04 09:27 | XMS_ITS | Encounter Summary ---
Author Organization [facility] Address [address] [place] [address] Care Team Providers Care Entry Level Assistant Manager Name Role Phone Shaikh BONNY Ohara Primary Care Provider [phone] Ariella Mathis DO Unavailable [phone] Tapan Barboza MD Primary Care Provider [phone] Mae Reese OXYACETYLENE CUTTER Unavailable [phone] Encounter Details Date Type Department Care Team (Late st Contact Info) Description 02/29/2024 Clinisync Result Encounter [facility] External Department Unsolicited Kaylene López, RIKKI [address] [place] [id number] Social History Tobacco Use Types Packs/Day Years [...] week 10/26/2023 How often do you attend [facility] or roman catholic services? More than 4 [...] Recorded Patient Health Questionnaire-2 Score 0 02/26/2024 [facility] of Occupat ional Health - Occupational Stress [...] Dermatology [address] [place] [address] Denise Lazo MD [address] [place] [address] 12/15/2026 9:00 AM EST Office Visit [facility] [address] [place] [address] Yuri Bowers PA [address] [place] [address] documented as of this encounter Procedures Procedure Name Priority Date/Time Associated Diagnosis Comments MM TOMOSYNTHESIS SCREENING BI 02/29/2024 4:01 PM EDT documented in this encounter Results * MM TOMOSYNTHESIS SCREENING BI (02/29/2024 4:01 PM EDT) Anatomical Region Laterality Modality Other 02/29/2024 4:01 PM EDT Narrative 02/29/2024 4:02 [place] [address] Mammography Report Signed Patient: DIANA CHAMPION MR#: [id number] : 1955 Acct:[id number] Age/Sex: 68 / F ADM Date: 02/28/24 Loc: MAMMO Attending Dr: Kaylene López NP Ordering Physician: Kaylene López NP Results: Date of Service: 02/28/24 Follow Up: Procedure(s): MM tomosynthesis screening BI Accession Number(s): [id number] cc: Kaylene López NP; Shaikh Eva Ohara Patient Name: DIANA CHAMPION MR#: [id number] : 1955 Exam Date: 02/28/2024 Ordering Doctor: CLEO López [facility] RADIOLOGY REPORT PROCEDURE: MM TOMOSYNTHESIS SCREENING BI [...] radiation, chemotherapy Family Cancers None LOCATION: [facility] BREAST COMPOSITION: The breasts are almost [...] Signed By: 02/29/24 1602 DD/ 1601 TD/TT: Form Builder Helper: Procedure Note Radiology, Radiologist, MD - 02/29/2024 [place] [address] Mammography Report Signed Patient: DIANA CHAMPION AMR#: [id number] : 1955cct:[id number] Age/Sex: 68 / FADM Date: 02/28/24 Loc: MAMMO Attending Dr: Kaylene López NP Ordering Physician: Kaylene López NPResults: Date of Service: 02/28/24Follow Up: Procedure(s): MM tomosynthesis screening BI Accession Number(s): [id number] cc: Kaylene López NP; Shaikh Eva Ohara Patient Name: DIANA CHAMPION MR#: [id number] : 1955 Exam Date: 02/28/2024 Ordering Doctor: CLEO López CONSTRUCTION SUPERINTENDENT RADIOLOGY REPORT PROCEDURE: MM TOMOSYNTHESIS SCREENING BI [...] radiation, chemotherapy Family Cancers None LOCATION: [facility] BREAST COMPOSITION: The breasts are almost [...] M.D. Signed By:02/29/24 1602 DD/ 1601 TD/TT: Form Builder Helper: us Kaylene López NP [facility] Final Result documented in this encounter Visit Diagnoses Not on filedocumented in this encounter Additional Health Concerns Assessment Noted Time PHQ-9 Depression Total Score: 7 11/02/20 23 3:03 PM EST documented as of this encounter Care Teams Entry Level Assistant Manager Relationship Specialty Start Date End Date Shaikh Ohara MD [address] [place] [address] PCP - General Internal Medicine 12/28/23 06/09/24 Tapan Barboza MD [address] [place] [address] PCP - General Family Medicine 06/10/24 Ariella Mathis DO [address] [place] [address] Referring Physician Neurology 01/02/24 Mae Reese NP [address] [place] [address] Nurse Practitioner Family Medicine 06/10/24 documented as of this encounter
--- OUTSIDE RECORDS SUMMARY | 2025-08-04 09:27 | XMS_ITS | Clinical Summary ---
Author Organization [facility] Address [id number] [address] [place] [address] Care Team Providers Care Professor Of History Name Role Phone Timoteo Rainey MD Primary Care Provider dAy clementeable Allergies No known active allergies Medications [...] mg by mouth daily with breakfast. Active zxsdlstr-kkeu-C A-calcium &mins (THERAGRAN-M) 9 mg iron-400 mcg [...] (03/26/2019): Added automatically from request for surgery [id number] Arthritis of right knee 10/17/2018 Lumbar spondylosis 05/22/2018 Overview (05/22/2018): Added automatically from request for surgery [id number] Disorder of sacrum 01/15/2018 Overview (01/15/2018): Added automatically from request for surgery [id number] Immunizations Immunization Administration Dates Next Due Pneumococcal [...] Vaccine 07/07/2025 Medical Devices Implanted Type Area Clinical Manager Home Care Device Identifier Shelf Expiration Date Model / Serial / Lot Cmnt Bn Fritterisc Plc Rpl [id number] - Sna - [id number] Implanted:Qty: 1 on 10/18/2018 by Jim Herring Jr. DO at [facility] Cement Right: Knee [employer] [id number] / NA / [id number] Cmnt Bn Fritterisc Plc Rpl [id number] - Sna - [id number] Implanted:Qty: 2 on 10/18/2018 by Jim Herring Jr. DO at [facility] Cement Right: Knee [employer] 02/03/2022 [id number] / NA / [id number] Orthopedic Implant Orthopedic Implant Description:lumbar fusion Orthopedic Implant Orthopedic Implant Description:left hip Cmpt Ptlr 32mm Nxgn Alply Rpl [id number] + [id number] + [id number] - Sna - [id number] Implanted:Qty: 1 on 10/18/2018 by Jim Herring Jr., DO at [facility] Orthopedic Implant Right: Knee [employer] 07/06/20265972 5-32 / NA / [id number] Ins Artc 3-4 E-F 12mm Kn Fx Rpl [id number] - Sna - [id number] Implanted:Qty: 1 on 10/18/2018 by Jim Herring Jr., DO at [facility] Orthopedic Implant Right: Knee [employer] 10/05/20225962 2-12 / NA / [id number] Cmpt Fem E Kn Rt Lpsflx Gndr Rpl [id number] - Sna - [id number] Implanted:Qty: 1 on 10/18/2018 by Jim Herring Jr., DO at [facility] Orthopedic Implant Right: Knee [employer] 11/05/20275764- 5-52 / NA / [id number] Plt Tib [id number] Nxgn Kn Cmnt Rpl [id number] + [id number] - Sna - [id number] Implanted:Qty: 1 on 10/18/2018 by Jim Herring Jr. DO at [facility] Plate Right: Knee [employer] 80 7-02 / NA / [id number] Explanted Type Area Clinical Manager Home Care Device Identifier Shelf Expiration Date Model / Serial / Lot Scr Bn Chente 35mm 6.5mm Hip St Rpl [id number] + [id number] + 32 - Sna - [id number] Explanted:Qty: 2 on 10/18/2018 at [facility] Screw Right: Knee [employer] 09/05/20280- 5-35 / NA / [id number] Scr Gd 48mm Qd-Spr Hex Hd Mis - Sna - [id number] Explanted:Qty: 2 on 10/18/2018 by Jim Herring Jr. DO at [facility] Screw Right: Knee [employer] 05/05/20285983- 0-48 / NA / [id number] Insurance MEDICARE [place]ICAID [place] Advance Directives * Full Code (Latest Code Status on File) Date Activated Date Inactivated Comments 10/18/2018 1:03 PM 10/19/2018 2:33 PM Care Teams Professor Of History Relationship Specialty Start Date End Date Timoteo Rainey MD PCP - General Family Medicine 12/26/17
--- OUTSIDE RECORDS SUMMARY | 2025-08-04 09:27 | XMS_ITS | Encounter Summary ---
Author Organization [facility] Address [address] [facility] [place] [address] Care Team Providers Care Line Locator Name Role Phone Shaikh BONNY Ohara Primary Care Provider [phone] Ariella Mathis DO Unavailable [phone] Tapan Barboza MD Primary Care Provider [phone] Mae Reese MUSHROOM FARMER Unavailable [phone] Encounter Details Date Type Department Care Team [...] How often do you attend chur or restorationist services? More than 4 times per year [...] Patient Health Questionnaire-2 Score 0 04/17/2024 [facility] of Occupat ional Health - Occupational [...] Office Visit [facility] [address] [facility] [address] [place] [address] Denise Lazo MD [address] [facility] [address] [place] [address] 12/15/2026 9:00 AM EST Office Visit [facility] [address] [place] [address] Yuri Bowers PA [address] [place] [address] documented as of this encounter Procedures Procedure Name Priority Date/Time Associated Diagnosis Comments CA ECHO DOPPLER COMPLETE 05/29/2024 3:49 PM EDT documented in this encounter Results * CA ECHO DOPPLER COMPLETE (05/29/2024 3:49 PM EDT) Anatomical Region Laterality Modality Other 05/29/2024 3:49 PM EDT Narrative 05/29/2024 3:50 [place] [address] Cardiology Report Signed Patient: DIANA CHAMPION MR#: [id number] : 1955 Acct:[id number] Age/Sex: 68 / F ADM Date: 05/28/24 Loc: CARD Attending Dr: Nasim Scales M.D. Ordering Physician: Nasim Scales M.D. Date of Service: 05/28/24 Procedure(s): CA echo doppler complete Accession Number(s): [id number] cc: Nasim Scales M.D.; Shaikh Eva Ohara Patient Name: DIANA CHAMPION MR#: [id number] : 1955 Exam Date: 05/28/2024 Ordering Doctor: [...] 38.40 ml, 38.40 ml Dictated by: Alicia Toussaint M.D. on 05/29/2024 at 15:46 Approved by: Alicia Toussaint M.D. on 05/29/2024 at 15:49 Dictated By: ALICIA TOUSSAINT Signed By: 05/29/24 1550 DD/ 1549 TD/TT: Wind Energy Project Manager: Procedure Note Radiology, Radiologist, MD - 05/29/2024 [place] [address] Cardiology Report Signed Patient: DIANA CHAMPION AMR#: [id number] : 1955cct:[id number] Age/Sex: 68 / FADM Date: 05/28/24 Loc: CARD Attending Dr: Nasim Scales M.D. Ordering Physician: Nasim Scales M.D. Date of Service: 05/28/24 Procedure(s): CA echo doppler complete Accession Number(s): [id number] cc: Nasim Scales M.D.; Shaikh Eva Ohara Patient Name: DIANA CHAMPION MR#: [id number] : 1955 Exam Date: 05/28/2024 Ordering Doctor: [...] 38.40 ml, 38.40 ml Dictated by: Alicia Toussaint M.D. on 05/29/2024 at 15:46 Approved by: Alicia Toussaint M.D. on 05/29/2024 at 15:49 Dictated By: ALICIA TOUSSAINT Signed By:05/29/24 1550 DD/ 1549 TD/TT: Wind Energy Project Manager: Generic External Data Provider [facility] Final Result documented in this encounter Visit Diagnoses Not on filedocumented in this encounter Additional Health Concerns Assessment Noted Time PHQ-9 Depression Total Score: 7 11/02/20 23 3:03 PM EST documented as of this encounter Care Teams Line Locator Relationship Specialty Start Date End Date Shaikh Ohara MD [address] [place] [address] PCP - General Internal Medicine 12/28/23 06/09/24 Tapan Barboza MD [address] [place] [address] PCP - General Family Medicine 06/10/24 Ariella Mathis DO [address] [place] [address] Referring Physician Neurology 01/02/24 Mae Reese NP [address] [place] [address] Nurse Practitioner Family Medicine 06/10/24 documented as of this encounter
--- OUTSIDE RECORDS SUMMARY | 2025-08-04 09:27 | XMS_ITS | Encounter Summary ---
Author Organization [facility] Address [address] [place] [address] Care Team Providers Care Administrator Name Role Phone Shaikh BONNY Ohara Primary Care Provider [phone] Ariella Mathis DO Unavailable [phone] Tapan Barboza MD Primary Care Provider Mae Reese HEALTH THERAPIST Unavailable [phone] Encounter Details Date Type Department Care Team (Late st Contact Info) Description 04/12/2024 Orders Only [facility] [address] [place] [address] Shaikh Ohara MD [address] [place] [address] Social History Tobacco Use Types Packs/Day Years [...] Recorded Patient Health Questionnaire-2 Score 0 04/11/2024 [facility] of Occupat ional Health - Occupational [...] Dermatology [address] [place] [address] Denise Lazo MD [address] [place] [address] 12/15/2026 9:00 AM EST Office Visit [facility] [address] [place] [address] Yuri Bowers PA [address] [place] [address] documented as of this encounter [...] documented as of this encounter Care Teams Administrator Relationship Specialty Start Date End Date Shaikh Ohara MD [address] [place] [address] PCP - General Internal Medicine 12/28/23 06/09/24 Tapan Barboza MD [address] [place] [address] PCP - General Family Medicine 06/10/24 Ariella Mathis DO [address] [place] [address] Referring Physician Neurology 01/02/24 Mae Reese NP [address] [place] [address] Nurse Practitioner Family Medicine 06/10/24 documented as of this encounter
--- OUTSIDE RECORDS SUMMARY | 2025-08-04 09:27 | XMS_ITS | Encounter Summary ---
Author Organization [facility] Address [address] [place] [address] [place] [address] Care Team Providers Care Drilling Machine Operator Name Role Phone Ariella Mathis DO Unavailable Tapan Barboza MD Primary Care Provider [phone] Mae Reese BROKERAGE CLERK Unavailable [phone] Encounter Details Date Type Department Care Team (Late st Contact Info) Description 04/29/2025 Abstract [facility] [address] [place] [address] Kaylene López NP [address] [place] [address] Social History Tobacco Use Types Packs/Day Years [...] How often do you attend chur or sikhism services? More than 4 times [...] Recorded Patient Health Questionnaire-2 Score 0 07/11/2024 [facility] of Occupat ional Health - [...] any time in the past 12 m [facility], were you homeless or living [...] [address] [place] [address] Denise Lazo MD [address] [place] [address] 12/15/2026 9:00 AM EST Office [facility] [address] [facility] [place] [address] Yuri Bowers PA [address] [facility] [place] [address] documented as of [...] documented as of this encounter Care Teams Drilling Machine Operator Relationship Specialty Start Date End Date Tapan Barboza MD [address] [place] [address] PCP - General Family Medicine 06/10/24 Ariella Mathis DO [address] [place] [address] Referring Physician Neurology 01/02/24 Mae Reese NP [address] [place] [address] Nurse Practitioner Family Medicine 06/10/24 documented as of this encounter
--- OUTSIDE RECORDS SUMMARY | 2025-08-04 09:27 | XMS_ITS | Encounter Summary ---
Author Organization [facility] Address [address] [place] [address] Care Team Providers Care Tax Accounting Assistant Name Role Phone Shaikh BONNY Ohara Primary Care Provider [phone] Ariella Mathis DO Unavailable [phone] Tapan Barboza MD Primary Care Provider Mae Reese FRESH FOOD MANAGER Unavailable [phone] Encounter Details Date Type Department Care Team (Late st Contact Info) Description 04/03/2024 Clinisync Result Encounter [facility] External Department Unsolicited Shaikh Ohara MD [address] [place] [address] Social History Tobacco Use Types Packs/Day Years [...] week 10/26/2023 How often do you attend [facility] or adventism services? More than 4 times [...] Recorded Patient Health Questionnaire-2 Score 0 04/03/2024 [facility] [place] of Occupat ional Health - Occupational Stress [...] place to sleep or slept in a detention (including now)? No 10/26/2023 Comments Unknown Sex [...] Dermatology [address] [place] [address] Denise Lazo MD [address] [place] [address] 12/15/2026 9:00 AM EST Office Visit [facility] [address] [place] [address] Yuri Bowers PA [address] [place] [address] documented as of this encounter Procedures Procedure Name Priority Date/Time Associated Diagnosis Comments XR CHEST 2V 04/03/2024 4:27 PM EDT documented in this encounter Results * XR CHEST 2V (04/03/2024 4:27 PM EDT) Anatomical Region Laterality Modality Other 04/03/2024 4:27 PM EDT Narrative 04/03/2024 4:30 PM EDT The [address] [address] XRay Report Signed Patient: DIANA CHAMPION MR#: [id number] : 1955 Acct:[id number] Age/Sex: 68 / F ADM Date: 04/03/24 Loc: RAD Attending Dr: Shaikh Lev Velasquez Ordering Physician: Shaikh Eva Ohara Date of Service: 04/03/24 Procedure(s): XR chest 2V Accession Number(s): [id number] cc: Shaikh Eva Ohara The [address] [address] Patient Name: DIANA CHAMPION MRN: [id number] date: 1955 Sex: F Assigned Patient Location: RAD Current Patient Location: RAD Accession/Order Number: [id number] Exam Date: 04/03/2024 15:40 Report Date: 04/03/2024 [...] Signed By: 04/03/24 1630 DD/ 1627 TD/TT: Stick Roller: Procedure Note Radiology, Radiologist, MD - 04/03/2024 [place] [address] XRay Report Signed Patient: DIANA CHAMPION AMR#: [id number] : 1955cct:[id number] Age/Sex: 68 / FADM Date: 04/03/24 Loc: RAD Attending Dr: Shaikh Lev Velasquez Ordering Physician: Shaikh Eva Ohara Date of Service: 04/03/24 Procedure(s): XR chest 2V Accession Number(s): [id number] cc: Shaikh Eva Ohara The [place] [id number] Patient Name: DIANA CHAMPION MRN: [id number] date: 1955 Sex: F Assigned Patient Location: RAD Current Patient Location: RAD Accession/Order Number: [id number] Exam Date: 04/03/2024 15:40 Report Date: 04/03/2024 [...] M.D. Signed By:04/03/24 1630 DD/ 1627 TD/TT: Stick Roller: us Shaikh Lev DRAPER [facility] Final Result documented in this encounter Visit Diagnoses Not on filedocumented in this encounter Additional Health Concerns Assessment Noted Time PHQ-9 Depression Total Score: 7 11/02/20 23 3:03 PM EST documented as of this encounter Care Teams Tax Accounting Assistant Relationship Specialty Start Date End Date Shaikh Ohara MD [address] [place] [address] PCP - General Internal Medicine 12/28/23 06/09/24 Tapan Barboza MD [address] [place] [address] PCP - General Family Medicine 06/10/24 Ariella Mathis DO [address] [place] [address] Referring Physician Neurology 01/02/24 Mae Reese NP [address] [place] [address] Nurse Practitioner Family Medicine 06/10/24 documented as of this encounter
--- OUTSIDE RECORDS SUMMARY | 2025-08-04 09:27 | XMS_ITS | Encounter Summary ---
Author Organization [facility] Address [address] [place] [address] Care Team Providers Care Last Turner Name Role Phone Shaikh BONNY Ohara Primary Care Provider [phone] Ariella Mathis DO Unavailable [phone] Tapan Barboza MD Primary Care Provider Mae Reese MECHANICAL CAR CHECKER Unavailable [phone] Encounter Details Date Type Department Care Team (Late st Contact Info) Description 02/13/2024 Clinisync Result Encounter [facility] External Department Unsolicited Shaikh Ohara MD [address] [place] [address] Social History Tobacco Use Types Packs/Day Years [...] 10/26/2023 How often do you attend [facility] or pentecostal services? More than 4 times per year [...] Recorded Patient Health Questionnaire-2 Score 0 01/25/2024 [facility] of Occupat ional Health - Occupational Stress [...] Dermatology [address] [place] [address] Denise Lazo MD [address] [place] [address] 12/15/2026 9:00 AM EST Office Visit [facility] [address] [place] [address] Yuri Bowers PA [address] [place] [address] documented as of this encounter Procedures Procedure Name Priority Date/Time Associated Diagnosis Comments MR LUMBAR SPINE WO CON 02/13/2024 2:06 PM EDT documented in this encounter Results * MR LUMBAR SPINE WO CON (02/13/2024 2:06 PM EDT) Anatomical Region Laterality Modality Other 02/13/2024 2:06 PM EDT Narrative 02/13/2024 2:08 PM EDT The [place] [id number] Magnetic Resonance Report Signed Patient: DIANA CHAMPION MR#: [id number] : 1955 Acct:[id number] Age/Sex: 68 / F ADM Date: 02/13/24 Loc: MRI Attending Dr: Shaikh Lev Velasquez Ordering Physician: Shaikh Eva Ohara Date of Service: 02/13/24 Procedure(s): MR lumbar spine wo con Accession Number(s): [id number] cc: Shaikh Eva Ohara The [address] [address] Patient Name: DIANA CHAMPION MRN: [id number] date: 1955 Sex: F Assigned Patient Location: MRI Current Patient Location: MRI Accession/Order Number: [id number] Exam Date: 02/13/2024 10:45 Report Date: 02/13/2024 [...] Signed By: 02/13/24 1408 DD/ 1406 TD/TT: Log Haul Chain Feeder: Procedure Note Radiology, Radiologist, MD - 02/13/2024 [place] [address] Magnetic Resonance Report Signed Patient: DIANA CHAMPION [facility]#: [id number] : 6Acct:[id number] Age/Sex: 68 / FADM Date: 02/13/24 Loc: MRI Attending Dr: Shaikh Lev Velasquez Ordering Physician: Shaikh Eva Ohara Date of Service: 02/13/24 Procedure(s): MR lumbar spine wo con Accession Number(s): [id number] cc: Shaikh Eva Ohara [place] [address] Patient Name: DIANA CHAMPION MRN: [id number] date: 1955 Sex: F Assigned Patient Location: MRI Current Patient Location: MRI Accession/Order Number: [id number] Exam Date: 02/13/2024 10:45 Report Date: 02/13/2024 [...] M.D. Signed By:02/13/24 1408 DD/ 1406 TD/TT: Log Haul Chain Feeder: us Shaikh Lev DRAPER [facility] Final Result documented in this encounter Visit Diagnoses Not on filedocumented in this encounter Additional Health Concerns Assessment Noted Time PHQ-9 Depression Total Score: 7 11/02/20 23 3:03 PM EST documented as of this encounter Care Teams Last Turner Relationship Specialty Start Date End Date Shaikh Ohara MD [address] [place] [address] PCP - General Internal Medicine 12/28/23 06/09/24 Tapan Barboza MD [address] [place] [address] PCP - General Family Medicine 06/10/24 Ariella Mathis DO [address] [place] [address] Referring Physician Neurology 01/02/24 Mae Reese NP [address] [place] [address] Nurse Practitioner Family Medicine 06/10/24 documented as of this encounter
--- OUTSIDE RECORDS SUMMARY | 2025-08-04 09:27 | XMS_ITS | Encounter Summary ---
Author Organization [facility] Address [address] [facility] [place] [address] Care Team Providers Care In Home Sales Consultant Name Role Phone Shaikh BONNY Ohara Primary Care Provider [phone] Ariella Mathis DO Unavailable [phone] Tapan Barboza MD Primary Care Provider [phone] Mae Reese FINANCIAL COMPLIANCE OFFICER Unavailable [phone] Encounter Details Date Type Department Care Team [...] How often do you attend chur or mormon services? More than 4 times [...] Recorded Patient Health Questionnaire-2 Score 0 03/27/2024 [facility] [...] Score 0 03/27/2024 9:39 AM EDT Tony Butst M A documented as of this encounter Plan of Treatment Upcoming Encounters Date Type Department Care Team (Late st Contact Info) Description 07/16/2026 8:45 AM EDT Office Visit [facility] [address] [place] [phone] Denise Lazo MD [address] [place] [address] 12/15/2026 9:00 AM EST Office Visit [facility] [address] [place] [address] Yuri Bowers PA [address] [place] [address] documented as of this encounter Procedures Procedure Name Priority Date/Time Associated Diagnosis Comments XR THORACIC SPINE 3V 03/27/2024 7:50 AM EDT documented in this encounter Results * XR THORACIC SPINE 3V (03/27/2024 7:50 AM EDT) Anatomical Region Laterality Modality Other 03/27/2024 7:50 AM EDT Narrative 03/27/2024 7:[place] [address] XRay Report Signed Patient: DIANA CHAMPION MR#: [id number] : 1955 Acct:[id number] Age/Sex: 68 / F ADM Date: 03/26/24 Loc: [facility] Attending Dr: Jose Mahajan NP Ordering Physician: Jose Mahajan NP Date of Service: 03/26/24 Procedure(s): XR thoracic spine 3V Accession Number(s): [id number] cc: Shaikh Eva Ohara; Jose Mahajan NP [address] [address] Patient Name: DIANA CHAMPION MRN: [id number] date: 1955 Sex: F Assigned Patient Location: [facility] Current Patient Location: Accession/Order Number: [id number] Exam Date: 03/26/2024 15:13 Report Date: 03/27/2024 [...] Signed By: 03/27/24 0753 DD/ 075 TD/TT: Ambulance Paramedic: Procedure Note Radiology, Radiologist, MD - 03/27/2024 [place] [address] XRay Report Signed Patient: DIANA CHAMPION AMR#: [id number] : 1955cct:[id number] Age/Sex: 68 / FADM Date: 03/26/24 Loc: RAD Attending Dr: Jose Mahajan NP Ordering Physician: Jose Mahajan NP Date of Service: 03/26/24 Procedure(s): XR thoracic spine 3V Accession Number(s): [id number] cc: Shaikh Eva Ohara; Jose Mahajan NP [address] [place] [id number] Patient Name: DIANA CHAMPION MRN: [id number] date: 1955 Sex: F Assigned Patient Location: [facility] Current Patient Location: Accession/Order Number: [id number] Exam Date: 03/26/2024 15:13 Report Date: 03/27/2024 [...] M.D. Signed By:03/27/24 0753 DD/ 0750 TD/TT: Ambulance Paramedic: us Generic External Data Provider [facility] Final Result documented in this encounter Visit Diagnoses Not on filedocumented in this encounter Additional Health Concerns Assessment Noted Time PHQ-9 Depression Total Score: 7 11/02/20 23 3:03 PM EST documented as of this encounter Care Teams In Home Sales Consultant Relationship Specialty Start Date End Date Shaikh Ohara MD [address] [place] [phone] PCP - General Internal Medicine 12/28/23 06/09/24 Tapan Barboza MD [address] [place] [address] PCP - General Family Medicine 06/10/24 Ariella Mathis DO [address] [place] [address] Referring Physician Neurology 01/02/24 Mae Reese NP [address] [place] [phone] Nurse Practitioner Family Medicine 06/10/24 documented as of this encounter
--- OUTSIDE RECORDS SUMMARY | 2025-08-04 09:27 | XMS_ITS | Encounter Summary ---
Author Organization [facility] Address [address] [place] [address] Care Team Providers Care Extrusion Machine Operator Name Role Phone Shaikh BONNY Ohara Primary Care Provider [phone] Ariella Mathis DO Unavailable [phone] Tapan Barboza MD Primary Care Provider [phone] Mae Reese REGISTERED HEALTH NURSE Unavailable [phone] Encounter Details Date Type Department Care Team (Late st Contact Info) Description 03/27/2024 Clinisync Result Encounter [facility] External Department Unsolicited Shaikh Ohara MD [address] [place] [phone] Social History Tobacco Use Types Packs/Day Years [...] do you attend [facility] or spiritism services? More than 4 times per year [...] Recorded Patient Health Questionnaire-2 Score 0 03/27/2024 [facility] - Occupational [...] Dermatology [address] [place] [address] Denise Lazo MD [address] [place] [address] 12/15/2026 9:00 AM EST Office Visit [facility] [address] [place] [address] Yuri Bowers PA [address] [place] [address] documented as of this encounter Procedures Procedure Name Priority Date/Time Associated Diagnosis Comments XR CHEST 2V 03/27/2024 4:02 PM EDT documented in this encounter Results * XR CHEST 2V (03/27/2024 4:02 PM EDT) Anatomical Region Laterality Modality Other 03/27/2024 4:02 PM EDT Narrative 03/27/2024 4:05 PM EDT [address] [address] XRay Report Signed Patient: DIANA CHAMPION MR#: [id number] : 1955 Acct:[id number] Age/Sex: 68 / F ADM Date: 03/27/24 Loc: RAD Attending Dr: Shaikh Lev Velasquez Ordering Physician: Shaikh Eva Ohara Date of Service: 03/27/24 Procedure(s): XR chest 2V Accession Number(s): [id number] cc: Shaikh Eva Ohara [address] [address] Patient Name: DIANA CHAMPION MRN: [id number] date: 1955 Sex: F Assigned Patient Location: RAD Current Patient Location: RAD Accession/Order Number: [id number] Exam Date: 03/27/2024 14:40 Report Date: 03/27/2024 [...] Signed By: 03/27/24 1605 DD/ 160 TD/TT: Fan Engine Engineer: Procedure Note Radiology, Radiologist, MD - 03/27/2024 [place] [address] XRay Report Signed Patient: DIANA CHAMPION AMR#: [id number] : 1955cct:[id number] Age/Sex: 68 / FADM Date: 03/27/24 Loc: RAD Attending Dr: Shaikh Lev Velasquez Ordering Physician: Shaikh Eva Ohara Date of Service: 03/27/24 Procedure(s): XR chest 2V Accession Number(s): [id number] cc: Shaikh Eva Ohara The [address] [address] Patient Name: DIANA CHAMPION MRN: [id number] date: 1955 Sex: F Assigned Patient Location: RAD Current Patient Location: RAD Accession/Order Number: [id number] Exam Date: 03/27/2024 14:40 Report Date: 03/27/2024 [...] M.D. Signed By:03/27/24 1605 DD/ 1602 TD/TT: Fan Engine Engineer: Shaikh Lev DRAPER [facility] Final Result documented in this encounter Visit Diagnoses Not on filedocumented in this encounter Additional Health Concerns Assessment Noted Time PHQ-9 Depression Total Score: 7 11/02/20 23 3:03 PM EST documented as of this encounter Care Teams Extrusion Machine Operator Relationship Specialty Start Date End Date Shaikh Ohara MD [address] [place] [phone] PCP - General Internal Medicine 12/28/23 06/09/24 Tapan Barboza MD [address] [place] [phone] PCP - General Family Medicine 06/10/24 Ariella Mathis DO [address] [place] [address] Referring Physician Neurology 01/02/24 Mae Reese NP [address] [place] [address] Nurse Practitioner Family Medicine 06/10/24 documented as of this encounter
[2025-08-04 10:05] LABS: Anion Gap 15.9; Blood Urea Nitrogen 6.0 mg/dL (7.0-18.0); Calcium 8.6 mg/dL (8.5-10.1); Carbon Dioxide 25.4 mmol/L (21.0-32.0); Chloride 106 mmol/L (98-107); Estimated GFR (African America 57 (>=60 mL/min/1.73m^2); Estimated GFR (Non-African Ame 47 (>=60 mL/min/1.73m^2); Glucose 137 mg/dL (74-106); Potassium 3.3 mmol/L (3.5-5.1); Sodium 144 mmol/L (136-145)
== END 2025-08-04 09:20 | disposition home or self-care (01) ==
LOC: LAB 09:20
PROVIDERS: PCP Nurse Practitioner; Visit Provider Nurse Practitioner
DX: E87.6 Hypokalemia (principal)
CPT/HCPCS: 36415; 80048

== ENCOUNTER 2025-09-03 13:42 | Outpatient (OUT) | payer MEDICARE, MEDICAID, SELFPAY ==
--- OUTSIDE RECORDS SUMMARY | 2018-10-04 05:00 | XMS_ITS | Continuity of Care Document ---
Author Organization [facility] Address [address] [place] [address] Phone Care Team Providers Care Manufacturing Operator Name Role Phone Tino Montelongo DDS [...] Nov-15-2 018 Nutrit Couns For Control Of [place] Dis Sep Oral Hygiene Instruction Removal Of [...] Eval Panoramic Film Intraoral-periapical 1st Film 8 Yfluoozla-cvovpehuac-wxur Additional Jun Dngterjdr-sjxxkjlrck-tzuq Additional Jun Comp Oral Eval New/estab Patient 2017 Oral Hygiene Instruction Initial Oral Exam Advance Directives Directive Yes / No Effective Date File Name No Information Encounters Encounter Description Practice Location Reason(s) For Visit Diagnoses Date Provider Providers Copied on Encounter [facility], [address] [place] [address], [id number] , tel:[phone] Dental Clinic post opt (chief complaint) Encounter for screening for dental disorders 8 Reginald Jiménez. [address] [place], [place], [id number], [place]. tel:[phone] [facility], [address] [place] [address], [id number] , tel:[phone] Dental Clinic extraction (chief complaint) Encounter for screening for dental disorders 8 Tigist Bahena. [address] [place] [address], [id number], [place]. tel:[phone] [facility], [address] [place], [place], [id number] , [place] tel:[phone] Dental Clinic Encounter for screening for dental disorders 8 Tigist Bahena. [address] [place], [place], [id number], [place]. tel:[phone] [facility], [address] [place] [address], [id number] , [place] tel:[phone] Dental Clinic EXT (chief complaint) Encounter for screening for dental disorders 8 Bobbyasanisabelan DMD Deepasulochana. [address] [place], [address], [place]. tel:[phone] [facility], [address] [place] [address], [id number] , [place] tel:[phone] Dental Clinic Dental Limited (chief complaint) Encounter for screening for dental disorders 8 Sivasankaraganesan DMD Deepasulochana. [address] [place], [address], [place]. tel:[phone] [facility], [address] [place] [address], [id number] , [place] tel:[phone] Dental Clinic Dental New (chief complaint) Encounter for screening for dental disorders 8 Sivasanisabelan DMD Deepasulochana. [address] [place] [address], [address], [place]. tel:[phone] Family History Family Member Type Diagnosis Age At Onset Father Problem (finding) Cardiovascular disease Mother Problem (finding) Cardiovascular disease Payers Payer name Insurance type Covered libertarian ID Authoriza tion(s) No Information Social History Type Description Quantity Date Captured Comments Alcohol Use Details Unknown Caffeine Use Details Unknown Tobacco Use Status Current non-smoker 19 Smoking Status Never smoker Non-Smoking Tobacco Use Details : No Details Available : No Details Available [id number] SexFemaleSexual OrientationStraight or wkyybesjzdugShe-[id number] Gender VxpkeqbyHsohojSnk-[id number] Vital Signs Date / Time: Height Weight [...]
--- OUTSIDE RECORDS SUMMARY | 2025-09-03 13:46 | XMS_ITS | Clinical Summary ---
Author Organization [facility] Address [address] [place] [address] Care Team Providers Care Debrander Name Role Phone Unavailable Primary Care Provider Unavailabl e Allergies No known active allergies Medications MedicationSigDispense QuantityRefillsLast FilledStart DateEnd DateStatus albuterol HFA (PROVENTIL HFA, VENTOLIN HFA) 90 mcg/actuation inhaler Inhale 2 Puffs as instructed every 6 hours as needed.Active amLODIPine (NORVASC) 10 mg tablet Take 10 mg by mouth.Active clonazePAM (KLONOPIN) 0.5 mg tablet Take 0.5 mg by mouth.Active cyclobenzaprine (FLEXERIL) 10 mg tablet Take 10 mg by mouth.Active famotidine (PEPCID) 20 mg tablet Take 20 mg by mouth.Active omeprazole (PRILOSEC) 20 mg capsule Take 20 mg by mouth.Active PARoxetine (PAXIL) 40 mg tablet Take 40 mg by mouth.Active spironolactone-hctz 25/25 (ALDACTAZIDE) 25-25 mg per tablet Take 25 mg by mouth.01/03/2019Active traZODone (DESYREL) 50 mg tablet Take 50 mg by mouth.01/21/2019Active aspirin, enteric coated (ASPIRIN, ENTERIC COATED) 325 mg EC tablet q 24 HR.Active ferrous sulfate 325 mg (65 mg iron) tablet Take 325 mg by mouth.Active Ipratropium (ATROVENT) 17 mcg/actuation inhaler Atrovent HFA 17 mcg/actuation aerosol inhalerActive montelukast (SINGULAIR) 10 mg tablet montelukast 10 mg xeqohd4106/24/2019Active therapeutic multivitamin-minerals (THERA-M PLUS) 9 mg iron-400 mcg tablet Take 1 tablet by mouth.Active oxybutynin XL (DITROPAN XL) 5 mg 24 hr tablet q 24 HR.Active hydroCHLOROthiazide (HYDRODIURIL, ESIDRIX) 25 mg tablet Take 25 mg by mouth once daily.Active Active Problems No known active problems Immunizations ImmunizationAdministration DatesNext Dueinfluenza (IIV4) vaccine, age 6 mo - 64 yr, quadrivalent, PF (AFLURIA, FLUARIX, FLULAVAL, FLUZONE)2020pneumococcal polysaccharide (PPV23) vaccine, 23 valent (PNEUMOVAX 23)10/19/2018 Social History Tobacco UseTypesPacks/DayYears UsedDateSmoking Tobacco: NeverSmokeless Tobacco: NeverAlcohol UseStandard Drinks/WeekCommentsNever0 (1 standard drink = 0.6 oz pure alcohol)AUDIT-CAnswerDate RecordedQ1: How often do you have a drink containing alcohol?Never09/11/2020Average Number of DrinksNot on file09/11/2020 Frequency of Binge DrinkingNot on file09/11/2020Area Deprivation IndexAnswerDate RecordedNational Score (1-100), lower number is lower riskNot on file01/20/2021 State Score (1-10), lower number is lower riskNot on file1Data from: https://www.neighborhoodatlas.medicine.[facility].edu/. Last address used for calculationNot on file1CommentsNoSex and Gender Information ValueDate RecordedSex Assigned at BirthNot on fileLegal AxvNxfhaj59/15/2017 10:53 AM ESTGender IdentityNot on fileSexual OrientationNot on file Last Filed Vital Signs Vital SignReadingTime TakenCommentsBlood Dyqejrbm102/7609/23/2020 2:26 PM EST Esybx038409/23/2020 2:26 PM HGAGvedxnytydo05.4 ??C (97.5 ??F)09/23/2020 2:26 PM ESTRespiratory Mocc406111/23/2019 2:26 PM ESTOxygen Famwmkcmea44%09/23/2020 2:26 PM ESTInhaled Oxygen Concentration--Cskmtb351.1 kg (225 lb)09/23/2020 2:26 PM BXDUveyzh929.6 cm (5' 4 )09/23/2020 2:26 PM ESTBody Mass Index38.6209/23/2020 2:26 PM EST Plan of Treatment Health MaintenanceDue DateLast DoneCommentsAnxiety Rtuqqdbbv77/28/1974Depression Vxaaoflqa28/28/1974Hepatitis C Irtwufzti99/28/1974DTaP,Tdap,Td Vaccine (1 - Tdap)1975Mammogram Cwytvrqlk72/28/1996CT Rorstbxczbvt43/28/2001Cologuard (FIT-DNA)08/03/20014810Bglbhzqhprx87/28/2001Colorectal Cancer Uocesxcsp09/28/2001 Fecal Occult Blood2001Lipid Cmlxuienq80/28/8896Ujuorpdwuifrm93/28/2001 Shingrix Vaccine (1 of 2)2006Pneumococcal Vaccine: 50+ (2 of 2 - PCV) Bone Density Unveigizj02/28/2021Diabetes Vvvdfrpac67/27/2021 10/02/2018Advance Directive Rlqftvuukd70/01/2025Covid-19 Vaccine (1 - 2024- season)2025Influenza Vaccine (#1)RSV Vaccine (1 - 1- dose 75+ series)2031 Insurance
--- OUTSIDE RECORDS SUMMARY | 2025-09-03 13:47 | XMS_ITS | Clinical Summary ---
Author Organization [facility] Address [address] [place] [address] Care Team Providers Care Rn Sexual Assault Name Role Phone Kaylene López MD Primary Care Provider [phone] Allergies Active AllergyReactionsCriticalityNoted DateCommentsFentanylOtherMedium 07/07/2017 Other Reaction(s): Hallucinating Medications MedicationSigDispense QuantityRefillsLast FilledStart DateEnd DateStatus albuterol 2.5 mg /3 mL (0.083 %) nebulizer solution USE 1 VIAL IN NEBULIZER EVERY 4 TO 6 HOURS NEEDEDActive albuterol 90 mcg/actuation inhaler INHALE 2 PUFFS BY MOUTH EVERY 4 HOURS NEEDED FOR SHORTNESS OF BREATHActive cholecalciferol (Vitamin D-3) 25 MCG (1000 UT) tablet Take 1 tablet by mouth in the morning.Active rnprgogtzbu-kcixbiinj-ogkzrkye 100-62.5-25 mcg blister with device Active guaiFENesin (Mucinex) 600 mg 12 hr tablet Take 1 tablet by mouth in the morning and at bedtime.Active montelukast (Singulair) 10 mg tablet Take 1 tablet by mouth at bedtime.Active omeprazole (PriLOSEC) [address] capsule Take 20 mg by mouth before breakfast and before evening meal.Active ferrous sulfate 325 (65 Fe) MG tablet Take 325 mg by mouth every other day.Active magnesium oxide (Mag-Ox) 400 mg (241.3 mg magnesium) tablet TAKE 1 TABLET BY MOUTH ONCE DAILY WITH FOOD02/07/2023ctive multivitamin (Theragran-M) 9 mg iron-400 mcg tablet Take 1 tablet by mouth in the morning.Active solifenacin (VESIcare) 5 mg tablet Take 10 mg by mouth in the morning.03/15/2023ctive Trelegy Ellipta 200-62.5-25 mcg blister with device INHALE 1 PUFF ONCE DAILY RINSE MOUTH AFTER USE01/17/2023ctive pramipexole (Mirapex) 0.25 mg tablet TAKE 1 TABLET BY MOUTH ONCE DAILY EVERY EVENING (2-3 HOURS BEFORE BEDTIME) 03/06/2024ctive pregabalin (Lyrica) 75 mg capsule TAKE 1 CAPSULE BY MOUTH IN THE MORNING AND 1 AT DPUYICA1005/06/2024ctive traMADol (Ultram) 50 mg tablet Take 50 mg by mouth every 12 (twelve) hours.01/23/2024ctive alendronate (Fosamax) 35 mg tablet TAKE 1 TABLET BY MOUTH 30 MINUTES BEFORE THE FIRST FOOD, BEVERAGE, OR MEDICINE OF THE DAY WITH PLAIN WATER ONCE A WEEK.11/28/2023ctive furosemide (Lasix) 20 mg tablet Take 20 mg by mouth in the morning.07/08/2024ctive latanoprost (Xalatan) 0.005 % ophthalmic solution INSTILL 1 DROP INTO EACH EYE AT IOIXUFN7006/18/2024ctive ofloxacin (Ocuflox) 0.3 % ophthalmic solution 07/10/2024ctive prednisoLONE acetate (Pred-Forte) 1 % ophthalmic suspension 07/10/2024ctive Klor-Con M20 20 mEq ER tablet TAKE 1 BY MOUTH WITH FOOD TWICE DAILY FOR 90 DAYS08/31/2023ctive sodium chloride 0.9 % nebulizer solution USE 1 VIAL IN NEBULIZER THREE TIMES DAILYActive baclofen (Lioresal) 10 mg tablet TAKE 1 TABLET BY MOUTH THREE TIMES DAILY (MORNING, EVENING, BEFORE BEDTIME) Active PARoxetine (Paxil) 30 mg tablet Take 40 mg by mouth.06/04/2024ctive traZODone (Desyrel) 100 mg tablet Take 100 mg by mouth at bedtime.Active Active Problems ProblemNoted DateDiagnosed DateMixed /27/2025Primary HSV infection of mouth11/12/2024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10/07/2024History of colon pzfpkx6905/13/2024neumonia due to infectious zpvpkiep68/11/2024 Overview (05/13/2024): Last Assessment & Plan: Finish atb, steroids, cont oxygen Fluids to thin secretions, aggressive use of incentive spirometer Purse lipped breathing Fu kimi pereyra in 2 weeks JEANNE (acute kidney injury)12/28/2023 Overview (05/13/2024): Last Assessment & Plan: Normal renal function at baseline but Cr was elevated when last checked. She had just covered from prolonged hospital admission. Its entirely possible that she may have developed CKD. Check BMP. Chronic respiratory failure with ejwjyec4812/28/2023 Overview (05/13/2024): Last Assessment & Plan: On 3 L O2 via NC now. She was previously on 2 L She is doing well currently and stated that this is the best she has felt since she had COVID over a year ago. Nmdsilkjszla70/22/2024 Overview (05/13/2024): Last Assessment & Plan: WBC 20 K when measures last time. However, she was on steroids at that time. Recheck. Hospital discharge follow-up12/05/2023 Overview (05/13/2024): Last Assessment & Plan: Recent hospital stay for observation. Observation for asthma exacerbation. She is doing well. Feelsher chest is congested and reports dyspnea at rest, worse on exertion. Her O2 requirement is same and at baseline. Patient has severe persistent asthma/COPD and bronchiectasis and on maximal therapy.She has chronic dyspnea at baseline and her lung function is progressively declining. She has an appt with Pulm and she will discuss possibly assisted prednisone for her severe Asthma/COPD. Patient instructed to go to ED if she experiences worsening SOB. Fyrvtyemfcakq43/30/2106Kbjdnvg38/30/2024Spinal stenosis, lumbar region without neurogenic cflhqtykxxcm80/30/2024Status post total right knee replacement 12/05/2023Medicare annual wellness visit, anmxiqqmzu26/01/2024 Overview (05/13/2024): Last Assessment & Plan: Here for Medicare Wellness. Screened for depression, cognitive impairment, fall risk Ordered cologuard for the patient. Mammogram not due. Will order next appt. Nyvvpvqgy35/29/2023t moderate risk for fall10/04/2023hronic back pain greater than 3 months aoegvzbu29/29/2023hronic heart failure with preserved ejection ejhgosnc30/29/2023hronic kidney disease, stage III (moderate)10/04/2023hronic low back pain without aumazcti26/29/2023 Overview (05/13/2024): Last Assessment & Plan: Chronic [...] injury. She has left LE weakness on examwhich is new. She also has hx of recurrent steroid use, osteopenia Will order an XR first to r/o compression fracture - no evidence of fracture. She is on lyrica for chronic pain. Added baclofen and oxycodone as tramadol was not helping her pain. Given her prior hx of degenerative disc disease, hx of lumbar fusion, new/worsening and progressivepain, with neurological weakness (new), I will order an MRI. Will renew her Oxycodone to provide her some relief until we have more information on the etiology of her pain Colorectal idjbmg0510/04/20231632Jdpctotrzb47/29/2023 Overview (05/13/2024): Last Assessment & Plan: Patient currently on Trazodone and Paxil. Reports depressed mood, anhedonia, poor sleep. Increase Paxil to 30 mg. Trazodone to 100 mg. Patient counseled and educated on adverse effects, drug interactions and to reach out to office/pharmacy if questions or concerns related to new medications. Iron deficiency emsmwt4410/04/2023Moderate persistent asthma with exacerbation 10/04/2023 Overview (05/13/2024): Last Assessment & Plan: Patient was treated with Oral steroids for asthma exacerbation. She then follow up with Pulmonologywho prescribed her oral antibiotics and prolonged steroid taper. She is feeling better than before but still SOB, wheezing and has difficulty breathing and feels tight. She has two more days of steroids and finished her oral abx prescribed by her hair spring winder. Continues to have bronchospasm, wheezing, chest tightness and will benefit from continuing pulse steroid taper as outpatient. Patient educated to go to ED if worsening SOB, hypoxia and no improvementwith prednisone. C/w albuterol q4. At high risk of poor outcome. Non-recurrent acute suppurative otitis media of both ears without spontaneous rupture of tympanic /29/2023 Overview (05/13/2024): Last Assessment & Plan: B/l otitis media noted on exam. Will call in oral Augmentin for patient. Positive depression iupehrfrd65/29/2023ost-jupttmlsgh53/29/2023Restless leg vyizurof55/29/2023Urge wgcmlnvidcec17/29/2023Vitamin D wzewrepmfn59/29/2023 Malignant neoplasm of rectosigmoid ooizruzg37/29/2023Morbid (severe) obesity due to excess nfpxmang79/29/2023ody mass index (BMI) 40.0-44.9, adult05/08/2023 05/08/2023ritical illness dbxpxhma52History of COVID-19 /01/2023Other secondary pulmonary fdjfgaarstkr77 Primary osteoarthritis of right hip03/26/2023Electrocardiogram abnormal 08/23/2022Disc displacement, fnvgas5503/26/2019 Overview (03/23/2023): Added automatically from request for surgery [id number] Arthritis of right knee10/17/2018Lumbar fsvshacwvrs05/17/2018 Overview (03/23/2023): Added automatically from request for surgery [id number] Disorder of epwgnj9701/15/2018 Overview (03/23/2023): Added automatically from request for surgery [id number] Bdyhjs6804/01/2014Chest pain04/01/2014Chronic obstructive lung urhgaqf7004/01/2014 Chronic vnlanepmg55/27/5343Dysapnk02/27/0092Zegbi70/27/2014Essential yzaysjyflcyv41/27/2014Gastroesophageal reflux cqgcpij6704/01/2014Hyperlipidemia 04/01/2014Type 2 diabetes mellitus without jwrfqravatqb66 Overview (05/08/2023): Removal Reason: Patient states no DM hx Left hip pain07/18/2010 Family History Medical HistoryRelationNameCommentsHeart diseaseFatherHeart failureMother RelationNameStatusCommentsFatherMother Social History Tobacco UseTypesPacks/DayYears UsedDateSmoking Tobacco: NeverSmokeless Tobacco: Never Tobacco Cessation:Counseling Given: Not Answered Alcohol UseStandard Drinks/WeekCommentsNot Currently0 (1 standard drink = 0.6 oz pure alcohol)occasionalHumiliation, Afraid, Rape, and Kick questionnaireAnswer Date RecordedWithin the last year, have you been afraid of your partner or ex-partner?No07/11/2024Emotionally AbusedNot on file07/11/2024hysically Abused Not on file07/11/2024Sexually AbusedNot on file07/11/2024HQ-2AnswerDate RecordedPatient Health Questionnaire-2 Nomqa428/12/2024CommentsUnknown Sex and Gender InformationValueDate RecordedSex Assigned at BirthNot on file Legal IvbTzemdg91/29/2022 10:32 PM EDTGender IdentityNot on fileSexual OrientationNot on file Last Filed Vital Signs Vital SignReadingTime TakenCommentsBlood Kteirvcj627/7401/23/2025 12:03 PM EDT Bvufb450701/23/2025 12:03 PM VYDPxhxiccgtox47.4 ??C (97.5 ??F)07/02/2024 8:11 AM EDTRespiratory Ivvf259007/02/2024 12:20 PM EDTOxygen Soffpzvtro52%01/23/2025 12:03 PM EDTon 3L X3Ucphgpu Oxygen Concentration--Dwjfky520 kg (236 lb)01/23/2025 12:03 PM EDTper lqrhdtuIuuotl943.6 cm (5' 4 )01/23/2025 12:03 PM EDTBody Mass Index40.51001/23/2025 12:03 PM EDT Plan of Treatment Health MaintenanceDue DateLast DoneCommentsCT Oqiyyqmsxzoo1956olonoscopy 1955olorectal Cancer Nydmjrdha1956Diabetes: Hemoglobin A1C 1955FIT-DNA1956FIT1956FOBT1956Medicare Annual Wellness (AWV)08/03/19568946Kmnmwgphdjblu1956Diabetes: Retinopathy Pregsleze14/28/1966 Diabetes: Urine Protein Mlrpozgfp70/28/1975Adult Bygyxex0408/03/1978Mammogram 1996COVID-19 Vaccine ( season)/, 08/26/2023, 08/04/2022, Additional history existsInfluenza Vaccine (#1)/11/2023, 08/26/2023, 08/04/2022, Additional history existsDepression Mvgfbwetd97/12/2025 10/17/2024Fall Risk Klfmaqvjy73/10/2024Zoster VaccinesCompleted 11/01/2022, 10/22/2022Pneumococcal Vaccine: 50+ TscwaQtybjjcyq31/04/2023, 10/19/2018HIB VaccinesAged OutNo longer eligible based on patient's age to complete this topicHPV VaccinesAged OutNo longer eligible based on patient's age to complete this topicIPV VaccinesAged OutNo longer eligible based on patient's age to complete this topicMeningococcal B VaccineAged OutNo longer eligible based on patient's age to complete this topicMeningococcal VaccineAged OutNo longer eligible based on patient's age to complete this topicRotavirus Vaccines Aged OutNo longer eligible based on patient's age to complete this topic Insurance Care Teams Team MemberRelationshipSpecialtyStart DateEnd Date Kaylene López MD [address] [place] [address] PCP - GeneralNurse Practitioner01/22/25
--- OUTSIDE RECORDS SUMMARY | 2025-09-03 13:47 | XMS_ITS | Clinical Summary ---
Author Organization [facility] tem Address [id number] [address] [place] [address] Care Team Providers Care Buffer Inflated Pad Name Role Phone Timoteo Rainey MD Primary Care Provider Ady ilable Allergies No known active allergies Medications MedicationSigDispense QuantityRefillsLast FilledStart DateEnd DateStatus lisinopril (PRINIVIL,ZESTRIL) 40 mg tablet Take 40 mg by mouth daily.Active clonazePAM (KlonoPIN) 0.5 mg tablet Take 0.5 mg by mouth nightly as needed for seizures.Active PARoxetine (PAXIL) 40 mg tablet Take 40 mg by mouth every morning.Active loratadine (CLARITIN) 10 mg tablet Take 10 mg by mouth daily.Active omeprazole (PriLOSEC) 20 mg capsule Take 20 mg by mouth daily.Active famotidine (PEPCID) 20 mg tablet Take 20 mg by mouth 2 (two) times a day.Active amLODIPine (NORVASC) 10 mg tablet Take 10 mg by mouth 2 (two) times a day.Active cyclobenzaprine (FLEXERIL) 10 mg tablet Take 10 mg by mouth 3 (three) times a day as needed for muscle spasms.Active ipratropium (ATROVENT HFA) 17 mcg/actuation inhaler Inhale 2 puffs 4 (four) times a day.Active albuterol (PROVENTIL HFA;VENTOLIN HFA) 90 mcg/actuation inhaler Inhale 2 puffs every 6 (six) hours as needed for wheezing.Active spironolactone (ALDACTONE) 50 mg tablet Take 50 mg by mouth daily.Active ferrous sulfate 325 (65 FE) mg tablet Take 325 mg by mouth daily with breakfast.Active xzayciki-dobi-LI-calcium &mins (THERAGRAN-M) 9 mg iron-400 mcg tablet Take 1 tablet by mouth daily.Active traZODone (DESYREL) 50 mg tablet Take 50 mg by mouth nightly.01/21/2019Active spironolacton-hydroCHLOROthiaz (ALDACTAZIDE) 25-25 mg per tablet Take 25 mg by mouth daily.01/03/2019Active meloxicam (MOBIC) 7.5 mg tablet Take 7.5 mg by mouth daily.01/03/2019Active montelukast (SINGULAIR) 10 mg tablet 06/24/2019Active Active Problems ProblemNoted DateDiagnosed DateLeft hip pain06/12/2019Disc displacement, lumbar 03/26/2019 Overview (03/26/2019): Added automatically from request for surgery [id number] Arthritis of right knee10/17/2018Lumbar sudsiyqelqo55/17/2018 Overview (05/22/2018): Added automatically from request for surgery [id number] Disorder of euiffh9101/15/2018 Overview (01/15/2018): Added automatically from request for surgery [id number] Immunizations ImmunizationAdministration DatesNext DuePneumococcal Wjtshdndlyhdny50/14/2018 Family History Medical HistoryRelationNameCommentsNo Known ProblemsBrother 1No Known Problems Brother 2No Known ProblemsBrother 3No Known ProblemsDaughter 1No Known Problems Daughter 2Coronary artery diseaseFatherCoronary artery diseaseMotherNo Known ProblemsSister 1No Known ProblemsSister 2No Known ProblemsSon 1No Known Problems Son 2No Known ProblemsSon 3No Known ProblemsSon 4SchizophreniaSon 5RelationName StatusCommentsBrother 1AliveBrother 2AliveBrother 3AliveDaughter 1AliveDaughter 2AliveFatherDeceasedMotherDeceasedSister 1AliveSister 2AliveSon 1AliveSon 2Alive Son 3AliveSon 4AliveSon 5Alive Social History Tobacco UseTypesPacks/DayYears UsedDateSmoking Tobacco: NeverSmokeless Tobacco: NeverAlcohol UseStandard Drinks/WeekCommentsYes0 (1 standard drink = 0.6 oz pure alcohol)1 glass of wine twice per monthChildcareAnswerDate RecordedChildcare Qumqelg8704/04/2019EmploymentAnswerDate KsbrunsjLqxseilkakDnkjhdc89/30/2019Purpose - LifeAnswerDate RecordedPurpose and direction in kxymJwzjape75/11/2021 CommentsNoSex and Gender InformationValueDate RecordedSex Assigned at BirthNot on fileLegal AkpIhssnj18/06/2015 11:34 AM EDTGender IdentityNot on fileSexual OrientationNot on file Last Filed Vital Signs Vital SignReadingTime TakenCommentsBlood Gpbhoxab505/5509 8:23 AM EDT Cqtlm060507/16/2019 8:23 AM HSXKoatzxesvia70.6 ??C (97.8 ??F)05/27/2019 8:52 AM EDTRespiratory Hqol5073 9:20 AM EDTOxygen Zyyonqgffz01%05/27/2019 9:23 AM EDTInhaled Oxygen Concentration--Spitcd352.2 kg (223 lb)07/16/2019 8:23 AM DCJRwpehn031.6 cm (5' 4 )05/23/2019 8:08 AM EDTBody Mass Index38.2807 8:08 AM EDT Plan of Treatment Health MaintenanceDue DateLast DoneCommentsDepression Fihuyclbo74/28/1968Tobacco Ygeurjtwu69/28/1968Adult BMI Chfwqxnxs94/28/1974DTaP,Tdap and Td Vaccines (1 - Tdap)1975Zoster (Shingles) Vaccine (1 of 2)2006Fall Risk Screening 2021Influenza Oepkovp5307/07/2025 Medical Devices ImplantedTypeAreaManufacturerDevice IdentifierShelf Expiration DateModel / Serial / LotCmnt Bn Hvisc Plc Rpl [id number] - Sna - [id number] Implanted:Qty: 1 on 10/18/2018 [facility] [id number] / NA / [id number] Bn Hvisc Plc Rpl [id number] - Sna - [id number] Implanted:Qty: 2 on 10/18/2018 [id number] / NA / [id number] ImplantOrthopedic ImplantDescription:lumbar fusionOrthopedic ImplantOrthopedic ImplantDescription:left hip Cmpt Ptlr 32mm Nxgn Alply Rpl [id number] + [id number] + [id number] - Sna - [id number] Implanted:Qty: 1 on 10/18/2018 by Jim Herring Jr., DO at [facility] ImplantRight: KneeZimmer Spqbef1307/06/202661-8224-119-32 / NA / [id number] Artc 3-4 E-F 12mm Kn Fx Rpl [id number] - Sna - [id number] Implanted:Qty: 1 on 10/18/2018 by Jim Herring Jr., DO at [facility] ImplantRight: KneeZimmer Ldpehe7010/05/202248-6952-897-12 / NA / [id number] Fem E Kn Rt Lpsflx Gndr Rpl [id number] - Sna - [id number] Implanted:Qty: 1 on 10/18/2018 by Jim Herring Jr., DO at [facility] ImplantRight: KneeZimmer Oapzpo4111/05/2027 30-8540-217-52 / NA / [id number] Tib 58t88m3ml Nxgn Kn Cmnt Rpl [id number] + [id number] - Sna - [id number] Implanted:Qty: 1 on 10/18/2018 [facility] KneeZimmer Axbrqw72-0011-841-59 / NA / [id number]eabluGpshat IdentifierShelf Expiration DateModel / Serial / LotScr Bn Chente 35mm 6.5mm Hip St Rpl [id number] + [id number] + 32 - Sna - [id number] Explanted:Qty: 2 [facility]18/[facility] KneeZimmer Indrtq15/31/504782-4979-149-26 / NA / [id number] Gd 48mm Qd-Spr Hex Hd Mis - Sna - [id number] Explanted:Qty: 2 on 10/18/2018 [facility]ring Jr[facility] KneeZimmer Eljequ42/30/352701-5264-539-77 / NA / [id number] Insurance Advance Directives * Full Code (Latest Code Status on File) Date ActivatedDate AtcfbbcybdyOvjgxoad27/13/2018 1:03 PM10/19/2018 2:33 PM Care Teams Team MemberRelationshipSpecialtyStart DateEnd Date Timoteo Rainey MD PCP - GeneralFamily Medicine12/26/17
--- OUTSIDE RECORDS SUMMARY | 2025-09-03 13:47 | XMS_ITS | Clinical Summary ---
Author Organization [facility] Address [address] [place] [address] Care Team Providers Care Test Analyst Name Role Phone Ariella Mathis DO Unavailable [phone] Tapan Barboza MD Primary Care Provider [phone] Mae Reese RESEARCH COMPUTING SPECIALIST Unavailable Allergies Active AllergyReactionsCriticalityNoted OfbmVtafbgzeAqkkqcif75/01/2017 Other Reaction(s): Hallucinating RlrcndkakaAunnyqa85/31/2024 Medications MedicationSigDispense QuantityRefillsLast FilledStart DateEnd DateStatus montelukast (Singulair) 10 MG tablet Take 10 mg by mouth 1 (one) time each dayActive guaiFENesin (Mucinex) 600 MG 12 hr tablet Take 1,200 mg by mouth in the morning and 1,200 mg before bedtime. Do not crush, chew, or split. .Active albuterol HFA 90 mcg/act inhaler Inhale 2 puffs every 4 (four) hours if needed for shortness of breathActive Multiple Vitamin (multivitamin) tablet Take 1 tablet by mouth DailyActive ferrous sulfate 325 (65 Fe) MG tablet Take 325 mg by mouth in the morning. Take with meals.Active albuterol (2.5 MG/3ML) 0.083% nebulizer solution Take 2.5 mg by nebulization every 6 (six) hours if needed for wheezingActive MAGnesium-Oxide 400 (240 Mg) MG tablet Take 400 mg by mouth Daily4Active sodium chloride 0.9 % nebulizer solution Take 3 mL by nebulization in the morning and 3 mL before bedtime.04/22/2024 Active latanoprost (Xalatan) 0.005 % ophthalmic solution 4Active omeprazole (PriLOSEC) [address] capsule Indications:Gastroesophageal reflux disease without esophagitisTake 1 capsule (20 mg) by mouth every 12 (twelve) hours 180 capsule 5Active trospium (Sanctura XR) 60 MG 24 hour capsule Take 60 mg by mouth DailyActive Ensifentrine (Ohtuvayre) 3 MG/2.5ML suspension every 12 (twelve) hours5Active Breztri Aerosphere 160-9-4.8 MCG/ACT aerosol every 12 (twelve) hours5Active baclofen (Lioresal) 10 MG tablet Indications:Chronic bilateral low back pain without sciaticaTake 1 tablet (10 mg) by mouth in the morning and 1 tablet (10 mg) in the evening and 1 tablet (10 mg) before bedtime. 90 tablet 5Active pregabalin (Lyrica) 75 MG capsule Indications:Restless leg syndromeTake 1 capsule (75 mg) by mouth in the morning and 1 capsule (75 mg) before bedtime. 60 capsule 5Active furosemide (Lasix) 20 MG tablet Indications:Edema of both lower extremitiesTake 1 tablet (20 mg) by mouth Daily 90 tablet 5Active fluticasone (Flonase) 50 MCG/ACT nasal spray Administer 2 sprays into each nostril Daily5Active PARoxetine (Paxil) 40 MG tablet Indications:Moderate episode of recurrent major depressive disorder (HCC)Take 1 tablet (40 mg) by mouth in the morning. 90 tablet 5Active pramipexole (Mirapex) 0.25 MG tablet Indications:RLS (restless legs syndrome)Take 1 tablet (0.25 mg) by mouth as needed at bedtime (Restless leg) 90 tablet 506Active traZODone (Desyrel) 100 MG tablet Indications:Moderate episode of recurrent major depressive disorder (HCC)Take 1 tablet (100 mg) by mouth at bedtime TAKE 1 TABLET BY MOUTH AT BEDTIME 90 tablet 5Active buPROPion XL (Wellbutrin XL) 150 MG 24 hr tablet Indications:Moderate episode of recurrent major depressive disorder (HCC)Take 1 tablet (150 mg) by mouth in the morning. Do not crush, chew, or split. 30 tablet 5Active Active Problems ProblemNoted DateDiagnosed DateCandidiasis of fiyyuo3805/19/2025Skin pustule 05/19/2025Exacerbation of wjlivb7104/09/2025Rheumatoid arthritis, unspecified 02/17/2025 Assessment & Plan (02/17/2025 6:10 AM EDT): Has a diagnosis of this Edema of both lower /14/2025 Assessment & Plan (02/17/2025 9:03 AM EDT): Elevate legs Compression stockings Fu in 4 weeks, call office if worsening Hwjekjsoztz04/14/2025ody mass index (BMI) 40.0-44.9, adult01/02/2025Mixed lxddrrpgrsea73/27/2025Primary HSV infection of mouth11/12/2024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10/07/2024 Assessment & Plan (10/07/2024 3:09 PM EST): Lesion of uncertain behavior middle chest- tried popping it two weeks ago, area has now become reddened. Area is closed, raised, and reddened with thin scab in place. Referral sent to Dermatology. Screening mammogram for breast erjnjt2002/15/2024neumonia due to infectious knirvwcd20/11/2024 Assessment & Plan (01/16/2025 6:30 AM EDT): Respiratory panel: culture pseudomonas Was sent home on doxy, will have her stop this, and start levoquin 750mg daily for 7 day Recent hospitalization to [facility]: back to back, 01/02/25 and 01/08/25 [...] breathing Fu kimi pereyra in 2 weeks Chronic low back pain without qzijqqdc68/21/2024 Assessment & Plan (01/31/2024 11:31 AM EDT): [...] for acute pain Chronic respiratory failure with iyoluek2212/28/2023 Assessment & Plan (04/09/2025 6:31 AM EDT): Is oxygen dependant, non invasive vent at night Chris is managing wood veneer taper Assessment & Plan (02/17/2025 6:09 AM EDT): Is oxygen dependant, non invasive vent at night Chris is managing wood veneer taper Assessment & Plan (01/16/2025 10:31 AM EDT): [...] Patient asked to use O2 as needed Kvlucvhwkrrn16/22/2024 Assessment & Plan (12/28/2023 9:35 AM EST): WBC 20 K when measures last time. However, she was on steroids at that time. Recheck. Agmvzmkbbgviy74/30/2024Other chronic pain12/05/2023rthropathy of right hip 12/05/2023rimary osteoarthritis of right knee12/05/2023Spinal stenosis, lumbar region without neurogenic jubnwzdzpdiw95/30/2024 Assessment & Plan (02/17/2025 9:01 AM EDT): Continue with lyrica and pain mgmt Spondylosis of lumbar region without myelopathy or utnmerfsajkfh22/30/2024 Crovbmiwymk74/30/2024Severe persistent asthma, iueepkjdvombx47/30/2024 Assessment & Plan (02/17/2025 6:09 AM EDT): [...] severe persistent asthma and was discharged from [facility] 3 days ago for acute respiratory [...] go to ED for further evaluation and likelybe admitted for her asthma exacerbation if deemed necessary. Patient's son will drive her to the hospital right away. Medicare annual wellness visit, vvivqqxpol06/01/2024 Assessment & Plan (11/06/2023 6:14 PM EST): Here for Medicare Wellness. Screened for depression, cognitive impairment, fall risk Ordered cologuard for the patient. Mammogram not due. Will order next appt. Osteoporosis /29/8379Pwidqzgpa53/29/2023hronic heart failure with preserved ejection vmajtgiq07/29/2023 Assessment & Plan (02/17/2025 6:07 AM EDT): Last ECHO currently in the chart is form 05/29: EF 50%, significantly elevated right sided pressure at 65 [facility] Cardiology Assessment & Plan (01/16/2025 10:31 AM EDT): Last ECHO currently in the chart is form 7/: EF 50%, significantly elevated right sided pressure at 65 [facility] Cardiology Assessment & Plan (07/11/2024 8:54 AM EDT): Follows Cardiology- [facility] Was seen in May 2024 Lasix 20mg Chronic kidney disease, stage 3a10/04/2023 Assessment & Plan (01/16/2025 10:32 AM EDT): Monitor labs Used to see dr aidan, told she did not have to return to see him Assessment & Plan (01/02/2025 7:25 AM EST): Monitor labs Assessment & Plan (10/07/2024 2:54 PM EST): Follows with Dr. Rivera. Monitor CMP, avoid nephrotoxic agents. Chronic obstructive pulmonary disease (COPD)10/04/2023 Assessment & Plan (04/09/2025 6:31 AM EDT): Current meds: albuterol nebs and inhaler, trelegy, oxygen Follows with Pulmonology Chris Assessment & Plan (02/17/2025 6:08 AM EDT): Current meds: albuterol nebs and inhaler, trelegy, oxygen Follows with Pulmonology Chris Assessment & Plan (01/02/2025 3:25 PM EST): Chris wood veneer taper Assessment & Plan (11/28/2024 1:37 PM EST): Was admitted to [facility] for COPD with acute exacerbation. [...] with dr perez Malignant neoplasm of rectosigmoid echwkthe36/29/2023 Assessment & Plan (01/02/2025 7:24 AM EST): Hx of this Mivctudibu52/29/2023 Assessment & Plan (05/19/2025 9:20 AM EDT): [...] concerns related to new medications. Gastroesophageal reflux mfjzjhv3810/04/2023 Assessment & Plan (02/17/2025 6:09 AM EDT): [...] Elevate HOB if possible Current meds: omeprazole Oqqdqbvwalivbn09/29/2023 Assessment & Plan (07/11/2024 8:55 AM EDT): Currently not on any medications: Lifestyle and dietary modifications. Recheck lipid pane today. Iron deficiency mcthsk2810/04/2023Morbid (severe) obesity due to excess calories 10/04/2023 Assessment & Plan (05/19/2025 6:23 AM EDT): [...] contraindicated). Limit sodas, juices, and sugary drinks. Post-kszchhnulc90/29/2023Restless leg xwifrfhw06/29/2023Urge incontinence 10/04/2023 Assessment & Plan (01/02/2025 7:25 AM EST): Take vesicare Vitamin D rtnbusnzcz87/29/2023ritical illness orfzudhr81/03/2023History of COVID-1907Other secondary pulmonary cbwygtnoeyxy87/03/2023 Assessment & Plan (01/16/2025 6:34 AM EDT): Noted on ECHO findings 05/29 Primary osteoarthritis of right hip03/26/2023hronic vszyoxsgl74/27/2014 Essential fuujyjbaolmb84/27/2014 Assessment & Plan (05/19/2025 6:23 AM EDT): [...] w/o medications. Follow up closely. Resolved Problems ProblemNoted DateDiagnosed DateResolved DateFlu-like toraghco51/27/2025 01/16/2025 Assessment & Plan (01/02/2025 3:28 PM EST): Neg, still strong clinical suspicion for flu, d/t severe pulmonary conditions and weakness will send her to [facility] ER for evaluation DD: pneumonia, covid, flu, RSV Severe persistent asthma with sbascdbryhiq62 Assessment & Plan (04/11/2024 2:33 PM EDT): [...] prednisone, I directed her to go to [facility] for direct admission. I spoke to case management myself to provide her information and reason for direct admit. Patient stable to go herself and does not require EMS transport. JEANNE (acute kidney injury)/ Assessment & Plan (12/28/2023 9:36 AM EST): Normal renal function at baseline but Cr was elevated when last checked. She had just covered from prolonged hospital admission. Its entirely possible that she may have developed CKD. Check BMP. Atrial fgjyjseumtve40MalaiseStatus post total right knee wqbyjqdpojc20Hospital discharge follow-up / Assessment & Plan (06/12/2024 11:38 AM EDT): [...] 10:34 AM EST): Recent hospital admission at [facility] for acute resp failure due to [...] will also inform the ED provider at [facility] andupdate them on the reason for ED visit. Rkxhqc69 Assessment & Plan (03/27/2024 9:57 AM EDT): [...] worsening respiratory status. At moderate risk for fall/enign essential HTN10/04/2023 01/02/2025 Assessment & Plan (07/11/2024 8:54 AM EDT): Currently not taking any medications. Bp is well controlled. Averages 120's-130's. Chronic back pain greater than 3 months evjfcofm47Low back painPositive depression gbarbjhgy31Right hip painModerate persistent asthma with exacerbation Assessment & Plan (11/06/2023 6:08 PM EST): Patient was treated with Oral steroids for asthma exacerbation. She then follow up with Pulmonologywho prescribed her oral antibiotics and prolonged steroid taper. She is feeling better than before but still SOB, wheezing and has difficulty breathing and feels tight. She has two more days of steroids and finished her oral abx prescribed by her wood veneer taper. Continues to have bronchospasm, wheezing, chest tightness [...] to help overcome bronchospasm/asthma exacerbation Non-recurrent acute suppurative otitis media of both ears without spontaneous rupture of tympanic cizsrwhaz96/ Assessment & Plan (10/04/2023 3:15 PM EST): B/l otitis media noted on exam. Will call in oral Augmentin for patient. Disc displacement, ynxzeq85 Overview (12/05/2023): Added automatically from request for surgery [id number] Added automatically from request for surgery [id number] Arthritis of right kneeLumbar ocmqfabbuih08/17/2018 04/09/2025 Overview (12/05/2023): Added automatically from request for surgery [id number] Added automatically from request for surgery [id number] Encounters DateTypeDepartmentCare HjopLjhyzrgnawp42/29/2025External Result Encounter [facility] Unsolicited Kaylene López NP 07/16/2025 2:45 PM EDTOffice Visit [facility] [address] [place] [address] Denise Lazo MD Seborrheic keratosis (Primary Dx); Lentigines; History of SCC (squamous cell carcinoma) of skin07/16/2025amboo flowsheet [facility] [address] [place] [address] Denise Lazo MD 07/16/20252440Gshppz96/13/2025Refill [facility] [address] [place] [address] Kaylene López NP Moderate episode of recurrent major depressive disorder (HCC)06/16/2025Telephone [facility] [address] [place] [address] Kaylene López NP 06/04/2025[facility] [address] [place] [address] Kaylene López NP Skin pustulefrom Last 3 Months Immunizations ImmunizationAdministration DatesNext DueInfluenza, High Dose Seasonal, Preservative Free09/06/2024Influenza, High-dose Seasonal, Quadrivalent, Preservative Free08/26/2023,08/04/2022,08/06/2021Influenza, Split (incl. purified surface antigen)08/09/2017Influenza, Wpsfidivthd09/01/2024,08/26/2023, 08/04/2022,08/06/2021,08/07/2020,08/09/2019,08/08/2018,08/10/2017Influenza, injectable, quadrivalent, preservative free08/07/2020,08/09/2019,08/08/2018, 08/10/2017Novel vqtgerixq-N7Q2-47, preservative-free09/02/2009Pneumococcal Conjugate PCV 3Pneumococcal Polysaccharide YXLY483812/20/2017RSV, recombinant, protein subunit RSVpreF, adjuvant reconstitu, 120mcg/0.5mL, PF (Arexvy)08/18/2023Zoster, Cfvqtwyxnbm00/27/2022,08/27/2022 Family History Medical HistoryRelationNameCommentsCOPDFatherHeart diseaseFatherHyperlipidemia FatherHypertensionFatherStrokeFatherHeart diseaseMotherHyperlipidemiaMother HypertensionMotherMental vfkulsvDrmxpjAoqlbatqDbtjYsxsqoPxobzglxOwqkzyfds8Udobgy DeceasedMotherDeceasedSonx5 Social History Tobacco UseTypesPacks/DayYears UsedDateSmoking Tobacco: NeverPassive Smoke Exposure: NeverSmokeless Tobacco: Never Tobacco Cessation:Counseling Given: Not Answered Alcohol UseStandard Drinks/WeekCommentsNever0 (1 standard drink = 0.6 oz pure alcohol)caffeine: more than 4 cups per [id number] Health LiteracyAnswerDate RecordedHow often do you need to have someone help you when you read instructions, pamphlets, or other written material from your doctor or pharmacy? Never11/25/2024Humiliation, Afraid, Rape, and Kick questionnaireAnswerDate RecordedWithin the last year, have you been afraid of your partner or ex-partner?No10/26/2023Within the last year, have you been humiliated or emotionally abused in other ways by your partner or ex-partner?No10/26/2023 Within the last year, have you been kicked, hit, slapped, or otherwise physically hurt by your partner or ex-partner?No10/26/2023Within the last year, have you been raped or forced to have any kind of sexual activity by your part ner or ex-partner?No10/26/2023Social Connection and Isolation PanelAnswerDate RecordedIn a typical week, how many times do you talk on the phone with family, friends, or neighbors?More than three times a week11/25/2024How often do you get together with friends or relatives?More than three times a week11/25/2024How often do you attend amish or jehovah's witness services?More than 4 times per year 11/25/2024Do you belong to any clubs or organizations such as amish groups, unions, fraternal or athletic groups, or school groups?No11/25/2024How often do you attend meetings of the clubs or organizations you belong to?Never11/25/2024 Are you , , , , never , or living with a partner?Hpvzbdzs29/20/2025UDIT-CAnswerDate RecordedQ1: How often do you have a drink containing alcohol?Never11/25/2024Q2: How many drinks containing alcohol do you have on a typical day when you are drinking?Patient does not drink 11/25/2024Q3: How often do you have six or more drinks on one occasion?Never 11/25/2024Overall Financial Resource Strain (CARDIA)AnswerDate RecordedHow hard is it for you to pay for the very basics like food, housing, medical care, and heating?Somewhat hard11/25/2024PHQ-2AnswerDate RecordedPatient Health Questionnaire-2 Lbwjz358Fincentral valley medical center [place] of Occupational Health - Occupational Stress QuestionnaireAnswerDate RecordedDo you feel stress - tense, restless, nervous, or anxious, or unable to sleep at night because yourmind is troubled all the time - these days?Only a nirqrc6911/25/2024Exercise Vital Sign AnswerDate RecordedOn average, how many days per week do you engage in moderate to strenuous exercise (like a brisk walk)?6 days11/25/2024On average, how many minutes do you engage in exercise at this level?30 min11/25/2024Hunger Vital SignAnswerDate RecordedWithin the past 12 months, you worried that your food would run out before you got the money to buymore.Never true11/25/2024Within the past 12 months, the food you bought just didn't last and you didn't have money to get more.Never true11/25/2024PRAPARE - TransportationAnswerDate RecordedIn the past 12 months, has lack of transportation kept you from medical appointments or from getting medications?No11/25/2024In the past 12 months, has lack of transportation kept you from meetings, work, or from getting things needed for daily living?No11/25/2024Housing Stability Vital SignAnswerDate RecordedIn the last 12 months, was there a time when you were not able to pay the mortgage or rent on time?No10/26/2023In the last 12 months, how many places have you lived?In the last 12 months, was there a time when you did not have a steady place to sleep or slept in ashelter (including now)?No 10/26/2023Housing Stability Vital SignAnswerDate RecordedIn the last 12 months, was there a time when you were not able to pay the mortgage or rent on time?No 11/25/2024In the past 12 months, how many times have you moved where you were living?t any time in the past 12 months, were you homeless or living in a snf (including now)?No11/25/2024CommentsUnknownSex and Gender InformationValueDate RecordedSex Assigned at BirthNot on fileLegal SexFemale 01/18/2023 7:03 PM EDTGender IdentityNot on fileSexual OrientationNot on file Last Filed Vital Signs Vital SignReadingTime TakenCommentsBlood Yzedxotj050/7607 8:43 AM EDT Opylj675505/19/2025 8:43 AM IEVTjdxbsofgyf78.9 ??C (98.5 ??F)05/19/2025 8:43 AM EDTRespiratory Sjmf997605/19/2025 8:43 AM EDTOxygen Yvmnopjspj02%05/19/2025 8:43 AM EDTInhaled Oxygen Concentration--Sogkof648 kg (236 lb 6.4 oz)05/19/2025 8:43 AM CAFHueaxk760.6 cm (5' 4 )11/28/2024 1:08 PM ESTBody Mass Index40.58011/28/2024 1:08 PM EST Plan of Treatment DateTypeDepartmentCare Team (Latest Contact Info)Jfeqssfvbel89/10/2026 8:45 AM EDTOffice Visit [facility] [address] [place] [address] Denise Lazo MD [address] [place] [address] 12/15/2026 9:00 AM ESTOffice Visit [facility] [address] [place] [address] Yuri Bowers PA [address] [place] [address] Health MaintenanceDue DateLast DoneCommentsCT Ztpjuuckpllo1956FIT-DNA 1956FIT1956FOBT08/03/19568036Hpbdshgvtsymi1956Influenza Vaccine (#1)511/11/2023, 09/06/2024, 08/26/2023, Additional history exists Iozmnxkmy78/28/675603/, 02/29/2024, 12/15/2022, Additional history exists Bekysnsfhmn75/02/203302/3Colorectal Cancer Ueyjrqrkr89/02/2033Pneumococcal Vaccine: 65+ VjvfoRcomtcnwz74/04/2023, 10/19/2018 Goals GoalPatient Goal TypeAssociated ProblemsRecent ProgressPatient-Stated?Author Help patient manage antidepressant medication Care PlanPatient on antidepressant monitoring Katerina Peraza Procedures Procedure NamePriorityDate/TimeAssociated DiagnosisCommentsGASTROINTESTINAL DJNOGFlpjnew81/29/2025 10:54 AM EDT BI MAMMOGRAM SCREENING TILDJRYDT87/28/2025 4:42 PM EDT from Last 3 Months or Most Recently Relevant to Health Maintenance Results * Gastrointestinal panel (08/04/2025 10:54 AM EDT)ComponentValueRef RangeTest MethodAnalysis TimePerformed AtPathologist SignatureYERSINIA ENTEROCOLITICA (GASTROINTESTINAL)023.000 - 33.092 ppm08/05/2025 9:08 AM EDTHealthTrackRx at LabPortYERSINIA ENTEROCOLITICA (GASTROINTESTINAL)Not Vjvflyfc11.000 - 33.092 ppm08/05/2025 9:08 AM EDTHealthTrackRx at LabPortVIBRIO CHOLERAE, PARAHAEMOLYTICUS, VULNIFICUS (GASTROINTESTINAL)023.000 - 31.311 ppm08/05/2025 9:08 AM EDTHealthTrackRx at LabPortVIBRIO CHOLERAE, PARAHAEMOLYTICUS, VULNIFICUS (GASTROINTESTINAL)Not Fbvumpuj43.000 - 31.311 ppm08/05/2025 9:08 AM EDTHealthTrackRx at LabPortSALMONELLA ENTERICA (GASTROINTESTINAL)023.000 - 30.960 ppm08/05/2025 9:08 AM EDTHealthTrackRx at LabPortSALMONELLA ENTERICA (GASTROINTESTINAL)Not Zvnhnmep28.000 - 30.960 ppm08/05/2025 9:08 AM EDT [facility] at LabPortROTAVIRUS A, B (GASTROINTESTINAL)023.000 - 31.736 ppm 08/05/2025 9:08 AM EDTHealthTrackRx at LabPortROTAVIRUS A, B (GASTROINTESTINAL)Not Oajsqbeg83.000 - 31.736 ppm08/05/2025 9:08 AM EDT [facility] at LabPortNOROVIRUS (GENOGROUP 1, 2) (GASTROINTESTINAL)023.000 - 30.251 ppm08/05/2025 9:08 AM EDTHealthTrackRx at LabPortNOROVIRUS (GENOGROUP 1, 2) (GASTROINTESTINAL)Not Fpdsgclr84.000 - 30.251 ppm08/05/2025 9:08 AM EDT [facility] at LabPortENTEROINVASIVE E. COLI (EIEC) / SHIGELLA SPP. (GASTROINTESTINAL)019.691 - 24.689 ppm08/05/2025 9:08 AM EDTHealthTrackRx at LabPortENTEROINVASIVE E. COLI (EIEC) / SHIGELLA SPP. (GASTROINTESTINAL)Not Sotwjzzg44.691 - 24.689 ppm08/05/2025 9:08 AM EDTHealthTrackRx at [facility] CLOSTRIDIUM DIFFICILE (TOXIN A/B) (GASTROINTESTINAL)019.691 - 24.689 ppm 08/05/2025 9:08 AM EDTHealthTrackRx at [facility]CL[facility] (TOXIN A/B) (GASTROINTESTINAL)Not Wrnbumas80.691 - 24.689 ppm08/05/2025 9:08 AM EDT [facility] HospitalCAMPYLOBACTER JEJUNI, COLI (GASTROINTESTINAL)023.000 - 31.263 ppm08/05/2025 9:08 AM EDTHealthTrackRx at [facility] HospitalCAMPYLOBACTER JEJUNI, COLI (GASTROINTESTINAL)Not Okactkes80.000 - 31.263 ppm08/05/2025 9:08 AM EDT [facility] HospitalSHIGA TOXIN- PRODUCING E. COLI (STEC) (GASTROINTESTINAL)019.691 - 24.689 ppm08/05/2025 9:08 AM EDTHealthTrackRx at [facility] HospitalSHIGA TOXIN- PRODUCING E. COLI (STEC) (GASTROINTESTINAL)Not Detected 19.691 - 24.689 ppm08/05/2025 9:08 AM EDTHealthTrackRx at [facility]A TOXIN- PRODUCING E. COLI O157 (STEC O157) (GASTROINTESTINAL)019.691 - 24.689 ppm 08/05/2025 9:08 AM EDTHealthTrackRx at [facility] HealthA TOXIN- PRODUCING E. COLI O157 (STEC O157) (GASTROINTESTINAL)Not Gufqazwe45.691 - 24.689 ppm08/05/2025 9:08 AM EDTHealthTrackRx at [facility] HospitalCLOSTRIDIUM AUQFTMLUTOI330.691 - 24.689 ppm 08/05/2025 9:08 AM EDTHealthTrackRx at LabMem[facility] BendCLOSTRIDIUM PERFRINGENSNot Seapsnei96.691 - 24.689 ppm08/05/2025 9:08 AM EDTHealthTrackRx at [facility] CRYPTOSPORIDIUM SPP (PARVUM, HOMINIS, RAN) (GASTROINTESTINAL)023.000 - 30.806 ppm09/ 9:08 AM EDTHealthTrackRx at LabPortCRYPTOSPORIDIUM SPP (PARVUM, HOMINIS, RAN) (GASTROINTESTINAL)Not Ggiwllix05.000 - 30.806 ppm 08/05/2025 9:08 AM EDTHealthTrackRx at LabPortCYCLOSPORA CAYETANENSIS, CYSTOISOSPORA MELODIE (GASTROINTESTINAL)023.000 - 31.921 ppm08/05/2025 9:08 AM EDTHealthTrackRx at LabPortCYCLOSPORA CAYETANENSIS, CYSTOISOSPORA MELODIE (GASTROINTESTINAL)Not Befuqfme95.000 - 31.921 ppm08/05/2025 9:08 AM EDT [facility] at LabPortDIENTAMOEBA FRAGILIS, ENTAMOEBA HISTOLYTICA (GASTROINTESTINAL)023.000 - 32.477 ppm08/05/2025 9:08 AM EDTHealthTrackRx at LabPortDIENTAMOEBA FRAGILIS, ENTAMOEBA HISTOLYTICA (GASTROINTESTINAL)Not Vxkcbbbv91.000 - 32.477 ppm08/05/2025 9:08 AM EDTHealthTrackRx at LabPort ENTAMOEBA USREAQVPYHC539.000 - 32.285 ppm08/05/2025 9:08 AM EDTHealthTrackRx at LabPortENTAMOEBA HISTOLYTICANot Taxqsyyr83.000 - 32.285 ppm08/05/2025 9:08 AM EDTHealthTrackRx at LabPortGIARDIA LAMBLIA (INTESTINALIS) (GASTROINTESTINAL)023.000 - 33.080 ppm08/05/2025 9:08 AM EDTHealthTrackRx at LabPortGIARDIA LAMBLIA (INTESTINALIS) (GASTROINTESTINAL)Not Uqhwlpwg86.000 - 33.080 ppm08/05/2025 9:08 AM EDTHealthTrackRx at LabPortMICROSPORIDIUM (ENTEROCYTOZOON BIENEUSI, ENCEPHALITOZOON INTESTINALIS) (GA023.000 - 31.963 ppm08/05/2025 9:08 AM EDTHealthTrackRx at LabPortMICROSPORIDIUM (ENTEROCYTOZOON BIENEUSI, ENCEPHALITOZOON INTESTINALIS) (GANot Pyhpybik54.000 - 31.963 ppm08/05/2025 9:08 AM EDTHealthTrackRx at [facility] HospitalSpecimen (Source) Anatomical Location / LateralityCollection Method / VolumeCollection Time Received RtfoNrqrqlw84/29/2025 10:54 AM EDT08/05/2025 1:44 AM EDT Narrative Authorizing ProviderResult TypeResult StatusLisa Aichholz NPLAB MICROBIOLOGY - GENERAL ORDERABLESFinal ResultPerforming OrganizationAddressCity/State/ZIP Code Phone Number [email or web address] [address] [address] * Bilateral screening mammogram (03/03/2025 4:42 PM EDT)Anatomical Region LateralityModalityBreastBilateralMammographySpecimen (Source)Anatomical Location / LateralityCollection Method / VolumeCollection TimeReceived Time 03/03/2025 4:42 PM EDT Narrative 03/03/2025 4:43 PM EDT [facility] ?[address] ? [place] [address] ? Mammography Report ? Signed ? Patient: DIANA CHAMPION A ?MR#: [id number] ?? : 1955 ?Acct:[id number] ?? Age/Sex: 69 / F ?ADM Date: 03/03/25 ?? Loc: MAMMO ? Attending Dr: Kaylene J Rene RESEARCH COMPUTING SPECIALIST ? Ordering Physician: Rene,Kaylene RESEARCH COMPUTING SPECIALIST ?Results: ? Date of Service: 03/03/ ?Follow Up: ? Procedure(s): MM screening mammo BI ?? Accession Number(s): [id number] ? cc: Kaylene López RESEARCH COMPUTING SPECIALIST ? Patient Name: ? DIANA CHAMPION ? MR#: [id number] ? : 1955 ? Exam Date: 03/03/2025 ?? Ordering Doctor: CLEO López CNP ? RADIOLOGY REPORT ? PROCEDURE: ? MM SCREENING MAMMO BI ? COMPARISON: ? MM TOMOSYNTHESIS SCREENING BI, 02/28/2024. ??MG MAMM SCREEN 3D ?? PRATEEK CAD, 12/15/2022. ??MG MAMM SCREEN 3D PRATEEK CAD, 11/26/2021. ??MG MAMM PRATEEK SCRN W ?? CAD DIG, 12/16/2013. ? INDICATIONS: ? Screening ? Calculator Name ? NCI Breast Cancer Risk Assessment Tool ?? 5 Year Breast Cancer Risk ? 1.20% ?? Lifetime Breast Cancer Risk ? 4.00% ?? Personal Breast Cancer ?No ?? Personal Ovarian Cancer ? No ?? Treatments ? Excision, radiation, chemotherapy ?? Family Cancers ? None ? LOCATION: ? [facility] ? BREAST COMPOSITION: ? The breasts are almost entirely fatty. ? FINDINGS: ? DIAGNOSTIC CATEGORY 1--NEGATIVE. ? RIGHT BREAST: ??No significant suspicious finding. ? LEFT BREAST: ??No significant suspicious finding. ? RECOMMENDATIONS: ? ROUTINE MAMMOGRAM AND CLINICAL EVALUATION IN 12 MONTHS. ? PLEASE NOTE: ??A NORMAL MAMMOGRAM DOES NOT EXCLUDE THE POSSIBILITY OF BREAST ?? CANCER. ??A CLINICALLY SUSPICIOUS PALPABLE LUMP SHOULD BE BIOPSIED. ? Dictated by: Marcos Medina DO on 03/03/2025 at 16:38 ? Approved by: Marcos Medina DO on 03/03/2025 at 16:42 ? Dictated By: ?Marcos Medina M.D. ? Signed By: ?03/03/253 ? DD/ 1642 ? TD/TT: ? Business Operations Consultant: Procedure Note Radiology, Radiologist, MD - 03/03/2025 [place] [address] Mammography Report Signed Patient: DIANA CHAMPION [facility]#: [id number] : 1955cct:[id number] Age/Sex: 69 / FADM Date: 03/03/25 Loc: MAMMO Attending Dr: Kaylene López NP Ordering Physician: Kaylene López NPResults: Date of Service: 03/03/25Follow Up: Procedure(s): MM screening mammo BI Accession Number(s): [id number] cc: Kaylene López NP Patient Name: DIANA CHAMPION MR#: [id number] : 1955 Exam Date: 03/03/2025 Ordering Doctor: CLEO López CNP RADIOLOGY REPORT PROCEDURE: MM SCREENING MAMMO BI COMPARISON: MM TOMOSYNTHESIS SCREENING BI, 02/28/2024. MG MAMM OELLWY4T PRATEEK CAD, 12/15/2022. MG MAMM SCREEN 3D PRATEEK CAD, 11/26/2021. MG MAMM BILSCRN W CAD DIG, 12/16/2013. INDICATIONS: Screening Calculator Name NCI Breast Cancer Risk Assessment Tool 5 Year Breast Cancer Risk 1.20% Lifetime Breast Cancer Risk 4.00% Personal Breast Cancer No Personal Ovarian Cancer No Treatments Excision, radiation, chemotherapy Family Cancers None LOCATION: [facility] BREAST COMPOSITION: The breasts [...] Medina M.D. Signed By:03/03/251642 DD/ 41 TD/TT: Business Operations Consultant: Authorizing ProviderResult TypeResult StatusKaylene López NPIMG BI PROCEDURES Final Result from Last 3 Months or Most Recently Relevant to Health Maintenance Additional Health Concerns Active ProblemsNoted DateDiagnosed DatePatient on antidepressant monitoring plan 07/17/2024 Insurance Care Teams Team MemberRelationshipSpecialtyStart DateEnd Date Tapan Barboza MD [address] [place] [address] PCP - GeneralFamily Medicine06/10/24 Ariella Mathis DO [address] [place] [address] Referring PhysicianNeurolog01/02/24 Mae Reese NP Nurse PractitionerFamily Medicine06/10/24
--- OUTSIDE RECORDS SUMMARY | 2025-09-03 13:51 | XMS_ITS | CCD ---
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 Name Role Phone Setph Collier Attending Provider Unavailable Chantel Rainey Primary Care Provider Unavailabl e Joana, Herberth Attending Provider Unavailable Unavailable Primary Care Provider Unavailabl e UNKNOWN, PHYSICIAN Referring Unavailable JOO LINN Attending Unavailable JOO LINN Admitting Unavailable UNKNOWN, PHYSICIAN Primary Care Unavailable Rena Hurd Unavailable Joana, Herberth Unavailable Gato Domingo Unavailable Steph Collier Attending Provider [phone] MD Gato Domingo Attending Provider MD Nicky Ohara Primary Care Provider [phone] Gilma Trent Unavailable JOANA, HERBERTH Attending Unavailable JOANA, HERBERTH Admitting Unavailable FAWWAD, MESSER H Primary Care Unavailable JOANA, HERBERTH Consulting Unavailable SAMSA ., BO Admitting Unavailable FAWWAD, MESSER H Primary Care Unavailable FAJavonWAD, MESSER H Consulting Unavailable BO MCKINNON Attending Unavailable BRITTANY GALDAMEZ Consulting Unavailable DILSHADASINorman ., DR SANTIAGO Admitting Unavailabl e KARASIK ., DR SANTIAGO Attending Unavailabl e KARASIK ., DR SANTIAOG Consulting Unavailabl e FAWWAD, MESSER H Primary Care Unavailable BRUNSWICK, DR BRITTANY Elizondo Consulting Unavailable ZIEBBETH, DR [...] Primary Care Provider Aida Reese NP Unavailable [phone] MD Allan Lacey Attending Provider KELI Reese Primary Care [facility] [place] ZAZUETA Primary Care Physician Allan Lacey MD Attending Provider Aida Correa [facility] Allan Lacey Attending Unavailable Aida Reese Primary Care Unavaila Allan Fregoso Admitting Unavailable Allan Lacey Attending Unavailable Aida Resee Primary Care Unavaila Allan Fregoso Admitting Unavailable Mary Ann MOTOR AND GENERATOR BRUSH MAKER, Aida Unavailable OMBALLI, MOHAMED Referring Unavailable RADHA, GHULAM Referring Unavailable OMBALLI, MOHAMED Admitting Unavailable OMBALLI, MOHAMED Attending Unavailable OMBALLI, MOHAMED Referring Unavailable ELTAHAWY, EHAB Attending Unavailable ELTAHAWY, EHAB Attending Unavailable OMBALLI, GUSTAVOAMED Attending Unavailable SAMSA BO Referring Unavailable OMBALLI, GUSTAVOAMED Attending Unavailable OMBALLI, EMELIA Attending Unavailable MAG BLOUNT Attending Unavailable AIDA REESE Referring Unavailabl e JOSE ALEJANDROMAG MORENO Attending Unavailable JOSE ALEJANDROMAG MORENO Attending Unavailable ALEX BLOUNTNIBLAINE Hester Admitting Unavailable Alicia DRAPER, Jayshree Johnson Attending Unavailable Alicia DRAPER, Andrius Vricardo Attending Unavailable Alicia DRAPER, Andrius Vytjulito Attending Unavailable Tapan Zazueta MD Primary Care Provider Mary Ann MOTOR AND GENERATOR BRUSH MAKER, Aida Unavailable Mary Ann MOTOR AND GENERATOR BRUSH MAKER-C, Aida Tenorio Primary Care [facility] Nicolas Dickinson DO Attending Provider Rene MOTOR AND GENERATOR BRUSH MAKER-CKaylene Primary Care Provider Rene MOTOR AND GENERATOR BRUSH MAKER-C, Kaylene Boone Attending Provider AIDA REESE Attending UnavailJESSICA Thorpe Attending Unavailable RAMIN MAIER Attending Unavailable RAMIN MAIER Referring Unavailable RAMIN MAIER Referring Unavailable JESSICA LAZO Attending Unavailable AIDA REESE Attending Unavailtori e AIDA REESE Attending Unavailabl e KAYLENE LÓPEZ Attending Unavailable AICHHOLZ, KAYLENE Attending Unavailable AICHHOLZ KAYLENE Attending Unavailable AICHHOLZ, KAYLENE Attending Unavailable AICHHOLGary, KAYLENE Attending Unavailable JESSICA LAZO Attending Unavailable JAYNA GOODE Attending Unavailable AIDA REESE Referring UnavailAIDA Negron Attending Unavailabl e Amalia Stephens Attending Unavailable Kat, Amalia Attending Unavailable KatAmalia sosa Attending Unavailable KatAmalia Attending Unavailable Unavailable Unavailable Unavailable Allergies Allergy ClassificationReported Allergen(s)Allergy TypeDate of OnsetReaction(s) Facility (20 sources)fentaNYL; Translations: [fentanyl]Drug Kyuiwfk72-18-1163 Hallucinations (finding)[facility] (1 source)linezolid; Translations: [LINEZOLID]Drug Bhhdzog68-77-8927Oud [facility] Rep[facility] (20 sources)Vancomycin; Translations: [VANCOMYCIN]Drug Bhftzru28-08-2558Divrwhb [facility] Repository (17 sources)DENIES METAL SENSITITIVITYPropensity to adverse cpqyiefsi33-14-1482 Unknown, Unknown ReactionNationwide Children'S Hospital Medications Current Medications MedicationDrug Class(es)DatesSig (Normalized)Sig (Original)30 ACTUAT fluticasone furoate 0.2 MG/ACTUAT / umeclidinium 0.0625 MG/ACTUAT / vilanterol 0.025 MG/AC TUAT Dry Powder Inhaler [Trelegy] (2 sources)take 1 puff(s) by inhalation once dailyTrelegy Ellipta 200-62.5-25 MCG/INH 1 puff Inhalation Once a day Activealbuterol 0.83 mg/ml inhalation solution (20 sources)beta2-Adrenergic AgonistStart: 80-20-5050kyrrwjths 0.083% Inh Meagan 3 mL 2.5 mg, 3 mL Start Date: 10/15/24 Status: Ordered Repeat number: 1Start: 12-76-6403Pxpeuduek Sulfate 2.5 mg /3 mL (0.083 %) solution for nebulization Active 2.5 MG CNTNEBULIZ 2-4 TIMES PER DAY as needed for shortness of breath or wheezing September 05, 2024 12:00am Complies with drug therapyStart: 03-14-2024 take 1 puff(s) by inhalation every four hours as needed for wheezingAlbuterol Sulfate 90 mcg/actuation HFA aerosol inhaler Active 2 PUFF INHALATION Every 4 hours as needed for shortness of breath or wheezing March 14, 2024 12:00am Complies with drug therapyStart: 23-64-0396uigp 1 puff(s) by inhalation every four to six hoursAlbuterol Sulfate Active 1 PUFF Inhalation EVERY 4-6 HOURS July 07, 2017 10:17amStart: 07-07-2017 End: 65-13-2176bfch 1 puff(s) by inhalation every four to six hours as needed for wheezingAlbuterol Sulfate 90 mcg/actuation Hfa Aerosol Inhaler Discontinued 1 PUFF INHALATION EVERY 4-6 HOURS as needed for Shortness Of Breath Or Wheezing July 07, 2017 12:00am March 14, 2024 10:40amStart: 07-07-2017 End: 45-06-8628xfpy 1 puff(s) by inhalation every four to six hoursAlbuterol Sulfate Discontinued 1 PUFF INHALATION EVERY 4-6 HOURS July 07, 2017 12:00am March 14, 2024 10:40amStart: 78-62-1588wsty 1 puff(s) by inhalation every four to six hoursAlbuterol Sulfate Active 1 PUFF INHALATION EVERY 4-6 HOURS July 06, 2017 11:00pmalbuterol (2.5 MG/3ML) 0.083% nebulizer solution Take 2.5 mg by nebulization every 6 (six) hours ifneeded for wheezing Activetake 2 puff(s) by inhalation every four hoursalbuterol HFA 90 mcg/act inhaler Inhale 2 puffs every 4 (four) hours if needed for shortness of breath Activetake 1 puff(s) by inhalation every four hours as neededAlbuterol Sulfate HFA 108 (90 Base) MCG/ACT 1 puff as needed Inhalation every 4 hrs Activetake 1 puff(s) by inhalation every four hours as neededAlbuterol Sulfate HFA 108 (90 Base) MCG/ACT 1 puff as needed Inhalation every 4 hrs Activealendronic acid 35 mg oral tablet (4 sources)BisphosphonateAlendronate Sodium 35 MG 1 tablet 30 minutes before the first food, beverage or medicine of the daywith plain water Orally once a week ActiveAspirin (4 sources)Platelet Aggregation Inhibitor, Nonsteroidal Anti-inflammatory Drug take 1 tablet by mouth once dailyAspirin 325 mg 325 mg one tab orally daily Activebaclofen 10 mg oral tablet (20 sources)gamma-Aminobutyric Acid-ergic AgonistStart: 03-14-2024 End: 55-38-9009krfp 1 tablet by mouth three times dailyBaclofen 10 mg tablet Active 10 MG PO Three times daily March 14, 2024 12:00am Complies with drug the rapytake 1 tablet by mouth every eight hoursBaclofen 5 MG 1 tablet as needed Orally Three times a day Hctobi110 actuat budesonide 0.16 mg/actuat / formoterol fumarate 0.0048 mg/actuat / glycopyrrolate 0.009 mg/actuat metered dose inhaler (20 sources)Corticosteroid, beta2-Adrenergic AgonistStart: 07-17-2025 Muwjdorizd-Dcwsafhp-Rqlkjneiex (Breztri Aerosphere) 160-9-4.8 mcg/actuation HFA aerosol inhaler Active 2 INH INHALATION Twice daily July 17, 2025 12:00am Complies with drug therapyStart: 69-26-8018Rwhhtgs Aerosphere 160-9-4.8 MCG/ACT aerosol every 12 (twelve) hours 02/24/2025 Sneszb41 hr buPROPion hydrochloride 150 mg extended release oral tablet (17 sources)AminoketoneStart: 56-56-5026weju 1 tablet by mouth once daily in the morningBupropion Hcl (Wellbutrin Xl) 150 mg tablet extended release 24 hr Active 150 MG PO Every morning July 17, 2025 12:00am Complies with drug therapyStart: 04-23-2025 End: 40-09-0851chfu 1 tablet by mouth every twenty-four hours in the morning buPROPion XL (Wellbutrin XL) 150 MG 24 hr tablet Indications: Moderate episode of recurrent major depressive disorder (HCC) Take 1 tablet (150 mg) by mouth in the morning. Do not crush, chew, or split. 30 tablet 1 06/18/2025 07/18/2025 Activecholecalciferol 0.025 mg oral capsule (13 sources)Vitamin DStart: 01-25-2024 End: 54-09-9609cvwj 1 capsule by mouth once dailydoxycycline hyclate 100 mg oral capsule (7 sources)Tetracycline-class DrugStart: 01-14-2025 End: 27-25-3942wjbs 1 capsule by mouth in the morningdoxycycline (Vibramycin) 100 MG capsule Take 100 mg by mouth in the morning and 100 mg before bedtime. 01/14/2025 01/16/2025 Discontinued (Therapy completed)Start: 11-18-2024 End: 43-16-8218pnnh 1 capsule by mouth in the morningdoxycycline (Vibramycin) 100 MG capsule Take 100 mg by mouth in the morning and 100 mg before bedtime. 11/18/2024 11/28/2024 ActiveStart: 24-47-6864cbaw 1 tablet by mouth once daily doxycycline (Vibra-Tabs) 100 MG tablet Take 100 mg by mouth Daily 06/10/2024 ActiveEnsifentrine (3 sources)Start: 44-91-9788qtut 3 mg by inhalation twice dailyEnsifentrine (Ohtuvayre) 3 mg/2.5 mL suspension for nebulization Active 3 MG INHALATION Twice dailySept2024 12:00am Complies with drug therapyEnsifentrine (Ohtuvayre) 3 MG/2.5ML suspension (18 sources)Start: 05-12-3312Nctownwlzjfg (Ohtuvayre) 3 MG/2.5ML suspension every 12 (twelve) hours 04/02/2025 Activeferrous sulfate 325 mg oral tablet (20 sources)Start: 43-30-5095wxfs 1 tablet by mouth once dailyferrous sulfate 325 mg Tab 325 mg = 1 tab(s), Oral, Daily Start Date: 10/15/24 Status: Ordered Repeat number: 1Start: 04-07-5630Sdfmilg Sulfate 325 mg (65 mg iron) tablet Active 325 MG PO Every 48 hours March 14, 2024 12:00am Complies with drug therapy take 1 tablet by mouth every other dayIron 325 (65 Fe) MG 1 tablet Orally every other day Activefluconazole 150 mg oral tablet (1 source)Azole AntifungalStart: 09-10-2024 End: 21-60-9717wkgh 1 tablet by mouth oncefluconazole (Diflucan) 150 MG tablet Indications: Vaginal guero Take 1 tablet (150 mg) by mouth 1(one) time for 1 dose 1 tablet 09/10/2024 09/10/2024 Activefluticasone propionate 0.05 mg/actuat metered dose nasal spray (13 sources)CorticosteroidStart: 14-06-6312mcgq 1 spray(s) nasal route once dailyFluticasone Propionate (Flonase Allergy Relief) 50 mcg/actuation spray,suspension Active 2 SPRAY INTRANASAL Daily August 01, 2025 12:00am administer into each nostril Complies with drug therapyStart: 73-01-5862wxfn 2 spray(s) nasal route once dailyfluticasone (Flonase) 50 MCG/ACT nasal spray Administer 2 sprays into each nostril Daily 05/01/2025tivetake 2 spray(s) nasal route once dailyFlonase Allergy Relief 50 MCG/ACT 2 spray in each nostril Nasally Once a day Activefluticasone furoate 0.1 MG/ACTUAT / umeclidinium 0.0625 MG/ACTUAT / vilanterol 0.025 MG/ACTUAT Dry Powder Inhaler (6 sources)Anticholinergic, Corticosteroid, beta2-Adrenergic AgonistStart: 17-58-7239rdguqbzvojw/umeclidinium/vilanterol 200 mcg-62.5 mcg-25 mcg/inh inhalation powder inh, Inhalation, Daily Start Date: 10/15/24 Status: Ordered Repeat number: 1Start: 19-98-9803uetagbdegrt/umeclidinium/vilanterol 200 mcg- 62.5 mcg-25 mcg/inh inhalation powder inh, Inhalation, Daily Start Date: 10/15/24 Status: BlemcjpZgplahyjsxt-Vcbtirulg-Mmwxjb (Trelegy Ellipta) 200-62.5-25 MCG/ACT aerosol powder (20 sources) End: 62-31-3822qwbz 1 puff(s) by mouth in the morning Aexrxydalqt-Eidaxzjbz-Yjwdxq (Trelegy Ellipta) 200-62.5-25 MCG/ACT aerosol powder Take 1 puff by mouth in the morning. 04/09/2025 Discontinued (Ineffective)take 1 puff(s) by mouth in the tffnyckCxlyyxjfqme-Pzwdidzwd-Adgzdx (Trelegy Ellipta) 200-62.5-25 MCG/ACT aerosol powder Take 1 puff by mouth in the morning. Activefurosemide 20 mg oral tablet (20 sources)Loop DiureticStart: 04-10-2024 End: 62-41-7277zeqc 1 tablet by mouth once dailyFurosemide (Lasix) 20 mg tablet Active 20 MG PO Daily May 29, 2024 7:40am Complies with drug therapytake 1 tablet by mouth every twenty-four hoursFurosemide 20 MG 1 tablet Orally Once a day Activegabapentin 300 mg oral capsule (1 source)Anti-epileptic Agenttake 1 capsule by mouth every twelve hours Gabapentin 300 MG 1 capsule Orally twice a day Hsnepz05 hr guaiFENesin 600 mg extended release oral tablet (20 sources)Start: 55-00-9643byzi 1 tablet by mouth every twelve hours as needed, then take 1 tablet by mouth every twelve hoursas neededGuaifenesin (Mucinex) 600 mg tablet extended release 12hr Active 600 MG PO Every 12 hours as neededJuly 17, 2025 12:00am Complies with drug therapytake 1 tablet by mouth in the morning, then take 1 tablet by mouth every twelve hours at bedtime guaiFENesin (Mucinex) 600 MG 12 hr tablet Take 1,200 mg by mouth in the morning and 1,200 mg beforebedtime. Do not crush, chew, or split. . Activetake 1 tablet by mouth every twelve hoursguaiFENesin ER 600 MG 1 tablet as needed Orally every 12 hrs Not-TakingIron (2 sources)take 1 tablet by mouth every other dayIron 325 (65 Fe) MG 1 tablet Orally every other day Activelatanoprost 0.05 mg/ml ophthalmic solution (20 sources)Prostaglandin AnalogStart: 59-08-2679Ilenlms 0.005% Soln-Opth 1 drop(s) Start Date: 10/15/24 Status: Ordered Repeat number: 1Start: 09-05-2024 take 1 drop(s) into the eye(s) once daily at bedtimeLatanoprost 0.005 % drops Active 1 DROPS EYE-BOTH Daily at bedtime September 05, 2024 12:00am Complies with drug therapyStart: 80-56-3217aujw 1 drop(s) into the eye(s) once daily at bedtimeLatanoprost 0.005 % drops Active 1 DROPS EYE-BOTH Daily at bedtime September 04, 2024 11:00pmStart: 91-33-2656ntqg 1 drop(s) into the eye(s) once daily at bedtimeLatanoprost Active 1 DROPS EYE-BOTH Daily at bedtime September 05, 2024 12:00amStart: 30-95-0399ktkjgmtaxfl (Xalatan) 0.005 % ophthalmic solution 06/18/2024 ActiveStart: 37-62-0884sqgb 1 drop(s) into the eye(s) at bedtimelatanoprost (Xalatan) 0.005 % ophthalmic solution INSTILL 1 DROP INTO EACH EYE AT BEDTIME 06/18/2024 Activelevocetirizine dihydrochloride 5 mg oral tablet (1 source)Histamine-1 Receptor Antagonisttake 1 tablet by mouth every twenty- four hoursLevocetirizine Dihydrochloride 5 MG 1 tablet in the evening Orally Once a day ActivelevoFLOXacin 750 mg oral tablet (4 sources)Quinolone AntimicrobialStart: 01-15-2025 End: 13-07-7620wobi 1 tablet by mouth once dailylevoFLOXacin (Levaquin) 750 MG tablet Indications: Pneumonia due to infectious organism, unspecified laterality, unspecified part of lung Take 1 tablet (750 mg) by mouth Daily for 7 days Discontinue doxycycline script 7 tablet 01/15/2025 01/22/2025 ActiveStart: 52-78-2345intv 1 tablet by mouth once dailylevoFLOXacin (Levaquin) 750 MG tablet Take 750 mg by mouth Daily 06/10/2024 Ghjero02 hr mirabegron 25 mg extended release oral tablet (1 source)beta3-Adrenergic AgonistStart: 07-22-2025 End: 07-95-1092tahc 1 tablet by mouth once dailyMyrbetriq 25 mg oral tablet, extended release 25 mg = 1 tab(s), Oral, Daily, X 30 day(s), # 30 tab(s), Refills(s) 4, Pharmacy: [id number], 163, cm, 07/22/25 8:42:00 EDT, Height/Length Dosing, 105.1, kg, 07/22/25 8:42:00 EDT, Weight Dosing Start Date: 07/22/25 Stop Date: 12/19/25 Status: Ordered Quantity: 30.0 Unit: tab(s) Repeat number: 5 Indications: Mixed incontinence; Overactive bladder;montelukast 10 mg oral tablet (20 sources)Leukotriene Receptor AntagonistStart: 34-94-8764kqdl 1 tablet by mouth once dailyMontelukast (Singulair) 10 mg tablet Active 10 MG PO Daily March 14, 2024 12:00am Complies with drugtherapyMulti For Her 50+ - (11 sources)Multi For Her 50+ - as directed Orally ONCE A DAY ActiveMulti For Her 50+ - as directed Orally ActiveMulti Vitamins oral tablet (6 sources)Start: 70-15-8959ilvw 1 tablet by mouth once dailyMulti Vitamins oral tablet Oral, Daily, Refill(s) 0 Start Date: 10/15/24 Status: Ordered Repeat number: 1Start: 68-84-2846Yonry Vitamins oral tablet Oral, Daily, Refill(s) 0 Start Date: 10/15/24 Status: OrderedMultiple Vitamin (multivitamin) tablet (20 sources)take 1 tablet by mouth once dailyMultiple Vitamin (multivitamin) tablet Take 1 tablet by mouth Daily Activetake 1 tablet by mouth in the morning Multiple Vitamin (multivitamin) tablet Take 1 tablet by mouth in the morning. Activemupirocin 0.02 mg/mg topical ointment (5 sources)RNA Synthetase Inhibitor AntibacterialStart: 05-19-2025 End: 86-62-7163ktokyovca (Bactroban) 2 % ointment Indications: Skin pustule Apply topically 3 (three) times a day as needed (skin pustules) for up to 10 days 22 g 06/05/2025 06/15/2025 Activenystatin 883953 unt/ml topical cream (7 sources)Polyene AntifungalStart: 05-19-2025 End: 04-16-8371tnumjtjn (Mycostatin) cream Indications: Candidiasis of breast Apply topically every 12 (twelve) hours if needed (yeast dermatitis) for up to 14 days 60 g 1 05/19/2025 06/02/2025 ActiveStart: 02-17-2025 End: 66-84-8191jfmktkoe (Mycostatin) cream Indications: Candidiasis Apply topically in the morning and before bedtime. Do all this for 14 days. Apply to affected area. 60 g 1 02/17/2025 03/03/2025 Activeomeprazole 20 mg delayed release oral capsule (20 sources)Proton Pump InhibitorStart: 02-26-2025 End: 78-48-4173lmpx 1 capsule by mouth onceomeprazole (PriLOSEC) [address] capsule Indications: Gastroesophageal reflux disease without esophagitis Take 1 capsule (20 mg) by mouth every 12 (twelve) hours 180 capsule 1 02/26/2025 Active Start: 10-15-2024 End: 05-91-9880hhvdlcygku 20 mg Cap-DR 20 mg = 1 cap(s) Start Date: 10/15/24 Status: Ordered Repeat number: 1Start: 09-03-2024 End: 72-51-1265yjgb 1 capsule by mouth onceomeprazole (PriLOSEC) [address] capsule Indications: Gastroesophageal reflux disease without esophagitis Take 1 capsule (20 mg) by mouth every 12 (twelve) hours 180 capsule 09/03/2024 12/02/2024 DiscontinuedStart: 06-03-2024 End: 99-22-5428kvdr 1 capsule by mouth every twelve hoursomeprazole (PriLOSEC) [address] capsule Indications: Gastroesophageal reflux disease without esophagi tis TAKE 1 CAPSULE BY MOUTH EVERY 12 HOURS 180 capsule 06/03/2024 09/03/2024 Discontinued (Reorder)Start: 71-92-1775rmzr 1 capsule by mouth twice daily Omeprazole 20 mg capsule,delayed release(DR/EC) Active 20 MG PO Twice daily March 14, 2024 12:00am Complies with drug therapyStart: 07-07-2017 End: 63-22-0491idpu 1 tablet by mouth once dailyOmeprazole 20 mg Tablet,Delayed Release (Dr/Ec) Discontinued 20 MG PO Daily July 07, 2017 12:00am March 14, 2024 10:41amtake 1 capsule by mouth every twelve hoursOmeprazole 20 MG 1 CAPSULE Orally TWICE A DAY Activetake 1 capsule by mouth once dailyOmeprazole 20 MG 1 capsule 30 minutes before morning meal Orally Once a day ActiveComment on above:Take 20 mg by mouth.24 hr oxybutynin chloride 5 mg extended release oral tablet (8 sources)Cholinergic Muscarinic Antagonisttake 1 tablet by mouth every twenty- four hoursOxybutynin Chloride ER 5 MG 1 tablet Orally Once a day Active PARoxetine hydrochloride 40 mg oral tablet (20 sources)Serotonin Reuptake InhibitorStart: 01-16-2025 End: 33-19-4090hrhm 1 tablet by mouth once dailyParoxetine Hcl (Paxil) 40 mg tablet Active 40 MG PO Daily July 17, 2025 12:00am Complies with drug therapyStart: 03-14-2024 End: 20-41-4315nbly 1 tablet by mouth once dailyParoxetine Hcl 30 mg tablet Discontinued 30 MG PO Daily March 14, 2024 12:00am July 17, 2025 6:59am Start: 07-07-2017 End: 66-34-8030ufuh 1 tablet by mouth once dailyParoxetine Hcl (Paxil) 20 mg Tablet Discontinued 20 MG PO Daily July 07, 2017 12:00am March 14, 2024 10:39amPARoxetine (PAXIL) 40 mg tablet Take 40 mg by mouth. 0 ActiveComment on above:Take 40 mg by mouth.potassium chloride 20 meq extended release oral tablet (15 sources)Start: 07-22-2025 End: 21-28-8556ihxf 1 tablet by mouth once daily at mealtimePotassium Chloride 20 mEq tablet extended release Active 20 MEQ PO Daily August 08, 2025 6:27am take with food Complies with drug therapyStart: 78-69-6048knzb 1 tablet by mouth every twenty-four hoursPotassium Chloride ER 20 MEQ 1 tablet with food Orally Once a day for 90 day(s) Jul, ActiveStart: 03-31-8480zdwi 1 tablet by mouth every twelve hoursPotassium Chloride ER 20 MEQ 1 tablet with food Orally Twice a day for 90 days Jul, Activepramipexole dihydrochloride 0.25 mg oral tablet (20 sources)Nonergot Dopamine AgonistStart: 00-66-2080rymcbrxknwn 0.25 mg Tab mg tab(s), Oral Start Date: 10/15/24 Status: Ordered Repeat number: 1Start: 03-14-2024 End: 37-60-0649yoto 1 tablet by mouth once daily at bedtimePramipexole 0.25 mg tablet Active 0.25 MG PO Daily at bedtime March 14, 2024 12:[address] suad pizanotake 1 tablet by mouth every twenty-four hoursPramipexole Dihydrochloride 0.25 MG 1 tablet Orally Once a day ActivepredniSONE 10 mg oral tablet (20 sources)Start: 01-14-2025 End: 75-92-9952aocl 1 tablet by mouth once dailypredniSONE (Deltasone) 10 MG tablet Take 10 mg by mouth Daily Follow instructions on label 01/14/2025 01/25/2025 ActiveStart: 11-19-2024 End: 06-97-7957avferuYILS (Deltasone) 10 MG tablet Take 10 mg by mouth See administration instructions 11/19/2024 12/20/2024 ActiveStart: 11-12-2024 End: 64-45-7346sexs 3 tablets by mouth once dailypredniSONE (Deltasone) 20 MG tablet Indications: Chronic obstructive pulmonary disease with acute lower respiratory infection (CMS/HCC) Take 3 tablets (60 mg) by mouth Daily for 5 days 15 tablet 11/12/2024 11/17/2024 ActiveStart: 69-77-6245hdwk 1 tablet by mouth once dailypredniSONE (Deltasone) 20 MG tablet Take 20 mg by mouth Daily 06/10/2024 Activepregabalin 75 mg oral capsule (20 sources)Start: 03-14-2024 End: 41-46-5662dzab 1 capsule by mouth twice dailyPregabalin 75 mg capsule Active 75 MG PO Twice daily March 14, 2024 12:00am Complies with drug therapy Sodium Chloride (20 sources)Start: 15-49-8495dugqpo chloride Start Date: 10/15/24 Status: Ordered Repeat number: 1Start: 71-30-8312gnowyz chloride Start Date: 10/15/24 Status: OrderedStart: 91-33-1180Tthsyh Chloride 0.9 % solution for nebulization Active ML INHALATION September 05, 2024 12:00am Complies with drug therapyStart: 83-16-9578Ncsuqo Chloride Active ML INHALATION September 05, 2024 12:00amStart: 01-53-2721arhvnr chloride 0.9 % nebulizer solution Take 3 mL by nebulization in the morning and 3 mL before bedtime. 04/22/2024 Activesolifenacin succinate 10 mg oral tablet (20 sources)Cholinergic Muscarinic AntagonistStart: 01-13-2025 End: 18-05-7861ubes 1 tablet by mouth once dailysolifenacin (VESIcare) 10 MG tablet Indications: Urge incontinence Take 1 tablet (10 mg) by mouth Daily 90 tablet 01/13/2025 04/09/2025 Discontinued (Ineffective)Start: 14-60-8553txfc 1 tablet by mouth once dailysolifenacin (VESIcare) 10 MG tablet Indications: Urge incontinence Take 1 tablet by mouth once daily 90 tablet 10/14/2024 ActiveStart: 65-68-6404fnyd 1 tablet by mouth once dailysolifenacin (VESIcare) 10 MG tablet Indications: Urge incontinence Take 1 tablet (10 mg) by mouth Daily 90 tablet 07/17/2024 ActiveStart: 02-19-2024 End: 78-91-0747qwrl 1 tablet by mouth once dailySolifenacin 10 mg tablet Discontinued 10 MG PO Daily March 14, 2024 12:00am July 17, 2025 7:01am take 1 tablet by mouth every twenty-four hoursVESIcare 10 MG 1 tablet Orally Once a day ActivetraMADol hydrochloride 50 mg oral tablet (20 sources)Opioid AgonistStart: 84-11-9665xkaDJCGX 50 mg Tab 50 mg = 1 tab(s), Oral Start Date: 10/15/24 Status: Ordered Repeat number: 1Start: 01-23-2024 End: 64-51-1196ymxx 1 tablet by mouth every twelve hourstraMADol (Ultram) 50 MG tablet Take 50 mg by mouth every 12 (twelve) hours 01/23/2024 04/09/2025 Dis continued (Therapy completed)traZODone hydrochloride 100 mg oral tablet (20 sources)Serotonin Reuptake InhibitorStart: 10-15-2024 End: 73-48-8809desi 1 tablet by mouth once daily at bedtime as neededTrazodone 100 mg tablet Active 100 MG PO Daily at bedtime as needed July 17, 2025 12:00am Complies with drug therapyStart: 84-94-7129qeyb 1 tablet by mouth at bedtimetraZODone (Desyrel) 100 MG tablet Indications: Moderate episode of recurrent major depressive disorder (HCC) (CMS/HCC) Take 1 tablet (100 mg) by mouth at bedtime 30 tablet 2 07/17/2024 ActiveStart: 03-14-2024 End: 47-20-7843rroo 1 tablet by mouth once daily at bedtimeTrazodone 100 mg tablet Discontinued 100 MG PO Daily at bedtime March 14, 2024 12:00am July 17, 2025 7:00amStart: 07-07-2017 End: 43-25-5520kxyw 1 tablet by mouth at bedtimeTrazodone 50 mg Tablet Discontinued 50 MG PO Bedtime July 07, 2017 12:00am March 14, 2024 10:38am Comment on above:Take 50 mg by mouth.Trelegy Ellipta 200-62.5-25 MCG/INH (5 sources)take 1 puff(s) by inhalation once dailyTrelegy Ellipta 200-62.5-25 MCG/INH 1 puff Inhalation Once a day Vfcgdf15 hr trospium chloride 60 mg extended release oral capsule (20 sources)Cholinergic Muscarinic AntagonistStart: 83-16-0823pkmh 1 capsule by mouth once daily 1 hour(s) before mealtimeTrospium 60 mg capsule,extended release 24hr Active 60 MG PO Daily July 17, 2025 12:00am must be taken on empty stomach at least 1 hour before a meal/food with water only Complies with drug therapyStart: 11-06-2024 End: 15-53-6578bhuk 1 tablet by mouth twice dailytrospium 20 mg oral tablet 20 mg = 1 tab(s), Oral, BID, # 60 tab(s), Refills(s) 11, Pharmacy: [id number], 163, cm, 10/15/24 14:36:00 EST, Height/Length Dosing, 107, kg, 10/15/24 14:36:00 EST, Weight Dosing Start Date: 11/06/24 Stop Date: 10/21/25 Status: Ordered Quantity: 60.0 Unit: tab(s)Repeat number: 12valACYclovir 1000 mg oral tablet (2 sources)Herpesvirus Nucleoside Analog DNA Polymerase Inhibitor, Herpes Simplex Virus Nucleoside Analog DNA Polymerase Inhibitor, Herpes Zoster Virus Nucleoside Analog DNA Polymerase InhibitorStart: 11-12-2024 End: 91-75-4703zfvs 1 tablet by mouth in the morningvalACYclovir (Valtrex) 1 g tablet Indications: Primary HSV infection of mouth Take 1 tablet (1,000 mg) by mouth in the morning and 1 tablet (1,000 mg) before bedtime. Do all this for 7 days. 14 tablet 11/12/2024 11/19/2024 ActiveVitamin D 25 MCG (1000 UT) (7 sources)take 1 tablet by mouth once dailyVitamin D 25 MCG (1000 UT) 1 tablet Orally Once a day Active Completed/Discontinued Medications MedicationDrug Class(es)DatesSig (Normalized)Sig (Original)albuterol HFA (PROVENTIL HFA, VENTOLIN HFA) 90 mcg/actuation inhaler (1 source)take 2 puff(s) by inhalation every six hours as neededalbuterol HFA (PROVENTIL HFA, VENTOLIN HFA) 90 mcg/actuation inhaler Inhale 2 Puffs as instructed every 6 hours as needed. 0 ActiveComment on above:Inhale 2 Puffs as instructed every 6 hours as needed.Albuterol Sulfate 90 mcg/actuation Hfa Aerosol Inhaler (1 source)Start: 07-07-2017 End: 88-30-2903aqvr 1 puff(s) by inhalation every four to six hours as needed for wheezingAlbuterol Sulfate 90 mcg/actuation Hfa Aerosol Inhaler Discontinued 1 PUFF INHALATION EVERY 4-6 HOURS as needed for Shortness Of Breath Or Wheezing July 06, 2017 11:00pm March 14, 2024 9:40amamLODIPine 2.5 mg oral tablet (17 sources)Dihydropyridine Calcium Channel BlockerStart: 07-07-2017 End: 39-78-2237zxjp 1 tablet by mouth twice dailyAmlodipine (Norvasc) 2.5 mg Tablet Discontinued 2.5 MG PO Twice daily July 07, 2017 12:00am March 14, 2024 10:40amtake 1 tablet by mouth every twenty-four hoursamLODIPine Besylate 5 MG 1 tablet Orally Once a day ActiveamLODIPine (NORVASC) 10 mg tablet Take 10 mg by mouth. 0 ActiveComment on above:Take 10 mg by mouth.clonazePAM 0.5 mg oral tablet (9 sources)BenzodiazepineStart: 07-07-2017 End: 76-18-1081zckh 1 tablet by mouth once dailyClonazepam 0.5 mg Tablet Discontinued 0.5 MG PO Daily July 07, 2017 12:00am March 14, 2024 10:40am Comment on above:Take 0.5 mg by mouth.cyclobenzaprine hydrochloride 10 mg oral tablet (9 sources)Muscle RelaxantStart: 07-07-2017 End: 61-30-9811ieqb 1 tablet by mouth once dailyCyclobenzaprine 10 mg Tablet Discontinued 10 MG PO Daily July 07, 2017 12:00am March 14, 2024 10:40am Comment on above:Take 10 mg by mouth.famotidine 40 mg oral tablet (9 sources)Histamine-2 Receptor AntagonistStart: 07-07-2017 End: 87-65-2199rxes 1 tablet by mouth at bedtimeFamotidine (Pepcid) 40 mg Tablet Discontinued 40 MG PO Bedtime July 07, 2017 12:00am 2022 8:02amfamotidine (PEPCID) 20 mg tablet Take 20 mg by mouth. 0 ActiveComment on above:Take 20 mg by mouth.Bkhjlthcfyr-Sfxqinwcu-Mldxizrg (13 sources)Start: 03-14-2024 End: 51-01-6061Biduraysiat-Umeclidin-Vilanter (Trelegy Ellipta) 200-62.5-25 mcg blister with device Discontinued 1INH INHALATION Daily March 14, 2024 12:00am July 17, 2025 6:56amStart: 74-79-7554Szwkrsmygvn-Umeclidin-Vilanter (Trelegy Ellipta) 200-62.5-25 mcg blister with device Active 1 INH INHALATION Daily March 13, 2024 11:00pmStart: 09-11-0743Hrfoyvjvukt-Umeclidin-Vilanter (Trelegy Ellipta) 200-62.5-25 mcg blister with device Active 1 INH INHALATION Daily March 14, 2024 12:00amStart: 12-08-2022 End: 62-27-2228Plvseccrdmj-Umeclidin-Vilanter (Trelegy Ellipta) 200-62.5-25 mcg blister with device Discontinued 1INH INHALATION As Directed December 08, 2022 12:00am May 9th, 2024 9:40amStart: 12-08-2022 End: 16-36-5265Kaocgpvktcq-Umeclidin-Vilanter (Trelegy Ellipta) 200-62.5-25 mcg blister with device Discontinued 1INH INHALATION As Directed December 08, 2022 1:00am March 14, 2024 10:40amStart: 57-73-7047Gidbbocbfss-Umeclidin-Vilanter (Trelegy Ellipta) 200-62.5-25 mcg blister with device Active 1 INH INHALATION As Directed December 08, 2022 12:00amhydroCHLOROthiazide 25 mg oral tablet (15 sources)Thiazide DiureticStart: 12-08-2022 End: 75-32-1685tmia 1 tablet by mouth once dailyHydrochlorothiazide 25 mg tablet Discontinued 25 MG PO Daily December 08, 2022 1:00am March 14, 2024 10:40am hydroCHLOROthiazide 25 mg / spironolactone 25 mg oral tablet (9 sources)Thiazide Diuretic, Aldosterone AntagonistStart: 77-74-0211fyky 1 tablet by mouth oncespironolactone-hctz 25/25 (ALDACTAZIDE) 25-25 mg per tablet Take 25 mg by mouth. 0 01/03/2019 ActiveStart: 09-15-2017 End: 95-80-9625Hrafvnlmcfiyo-Hydrochlorothiaz 0 tablet Discontinued 1 TAB PO Daily September 15, 2017 1:00am December 08, 2022 8:04amComment on above:Take 25 mg by mouth.200 actuat ipratropium bromide 0.017 mg/actuat metered dose inhaler (12 sources)AnticholinergicStart: 07-07-2017 End: 36-77-4507syqn 1 puff(s) by inhalation twice dailyIpratropium [place] (Atrovent Hfa) 17 mcg/actuation Hfa Aerosol Inhaler Discontinued 2 PUFF INHALATI ON Twice daily July 07, 2017 12:00am March 14, 2024 10:40amtake 2 puff(s) by inhalation four times dailyAtrovent HFA 17 MCG/ACT 2 puffs Inhalation Four times a day Activelisinopril 40 mg oral tablet (8 sources)Angiotensin Converting Enzyme InhibitorStart: 07-07-2017 End: 29-23-5573vqws 0.5 tablet by mouth twice dailyLisinopril 40 mg Tablet Discontinued 0.5 TAB PO Twice daily July 07, 2017 12:00am December 08, 2022 8:04amloratadine 10 mg oral tablet (8 sources)Start: 07-07-2017 End: 13-70-5460lswf 1 tablet by mouth once dailyLoratadine 10 mg Tablet Discontinued 10 MG PO Daily July 07, 2017 12:00am March 14, 2024 10:41am losartan potassium 50 mg oral tablet (18 sources)Angiotensin 2 Receptor BlockerStart: 04-10-2024 End: 86-95-1637jzak 1 tablet by mouth twice dailyLosartan 50 mg tablet Discontinued 50 MG PO Twice daily 180 April 10, 2024 4:50pm September 05, 2024 1:09pmStart: 04-10-2024 End: 52-32-6098lfis 1 tablet by mouth once dailyLosartan 50 mg tablet Discontinued 50 MG PO Daily 90 April 10, 2024 12:00am April 10, 2024 4:49pmtake 1 tablet by mouth in the morning, then take 1 tablet by mouth twice daily in the eveningLosartan Potassium 50 MG 1 tablet AM / 1 tablet PM Orally bid for 90 days ActiveMagnesium (7 sources)Start: 12-08-2022 End: 03-49-8274leao 1 tablet by mouth once dailyMagnesium 200 mg Tablet Discontinued 200 MG PO Daily December 08, 2022 1:00am March 14, 2024 10:34am Start: 12-08-2022 End: 01-68-1571fnfn 1 tablet by mouth once dailyMagnesium 200 mg Tablet Discontinued 200 MG PO Daily December 08, 2022 12:00am March 14, 2024 9:34am Start: 12-08-2022 End: 67-53-2972zuac 200 mg by mouth once dailyMagnesium Discontinued 200 MG PO Daily December 08, 2022 1:00am March 14, 2024 10:34amStart: 46-62-2864itwb 200 mg by mouth once dailyMagnesium Active 200 MG PO Daily December 08, 2022 12:00ammagnesium oxide 400 mg oral tablet (20 sources)Start: 08-09-2022 End: 09-60-5853hfou 1 tablet by mouth once dailyMagnesium Oxide 400 mg magnesium tablet Discontinued 400 MG PO Daily March 14, 2024 12:00am April 09, 2024 7:18am methylPREDNISolone (18 sources)CorticosteroidStart: 22-07-2002Xbhv-Medrol 40 mg Jul, 1 mL Start: 59-87-5288Umri-Medrol 40 mg Jan, 1 mLpotassium 99 mg extended release oral tablet (7 sources)Start: 12-08-2022 End: 30-60-6185ybvg 1 tablet by mouth twice dailyPotassium 99 mg Tablet Discontinued 99 MG PO Twice daily December 08, 2022 1:00am March 14, 2024 10: 41am Problems Active Problems Problem ClassificationProblemDateDocumented DateEpisodic/ChronicAsthma (20 sources)Asthma; Translations: [Unspecified asthma, uncomplicated]Onset: 10-04-2023 Resolved: 380661-60-6131WiyjdlmTgpiek of colon (20 sources)History of malignant neoplasm of colon; Translations: [History of large intestine malignacy]Onset: 07-08-2022 Resolved: 26-11-4878NniwwbcyNivoay of rectum and anus (20 sources)Malignant neoplasm of rectosigmoid junction; Translations: [Malignant neoplasm of rectosigmoid junction]Onset: hronic Cancer of rectum and anus (4 sources)History of malignant neoplasm of anus; Translations: [Personal history of other malignant neoplasm of rectum, rectosigmoid junction, and anus] EpisodicChronic kidney disease (20 sources)Chronic kidney disease stage 3; Translations: [Chronic kidney disease, stage 3 (moderate)]Onset: 292613-37-5220SulwnnrApdnfoc obstructive pulmonary disease and bronchiectasis (20 sources)Chronic obstructive lung disease; Translations: [Chronic obstructive pulmonary disease, unspecified]Onset: 421867-91-6319WazfyluMmqybvb on above:O2@3L continuousChronic obstructive pulmonary disease and bronchiectasis (1 source)Chronic obstructive pulmonary disease and bronchiectasisComplication of device; implant or graft (11 sources)Prosthetic joint loosening; Translations: [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, initial encounter]EpisodicCongestive heart failure; nonhypertensive (20 sources)Chronic heart failure co-occurrent with normal ejection fraction; Translations: [Chronic diastolic (congestive) heart failure]Onset: 10-04-2023 68-67-5548TyzpjxtZkgbxzwevv and other anemia (11 sources)Anemia of renal disease; Translations: [Anemia in chronic kidney disease]ChronicDeficiency and other anemia (20 sources)Iron deficiency anemia; Translations: [Iron deficiency anemia, unspecified]Onset: 107940-93-1501LmkurmsfFteswitk of white blood cells (20 sources)Leukocytosis; Translations: [Elevated white blood cell count, unspecified]Onset: 971169-98-9129HgnciqhRecqwsikh of lipid metabolism (20 sources)Hyperlipidemia; Translations: [Hyperlipidemia, unspecified]Onset: 533442-03-4354LjumwypNzpmpquffq disorders (20 sources)Gastroesophageal reflux disease; Translations: [Gastro-esophageal reflux disease without esophagitis]Onset: 060597-44-3328FgrpbcqTsvdnvdyf hypertension (20 sources)Hypertensive disorder; Translations: [Essential (primary) hypertension]Onset: 04-01-2014 Resolved: 275260-44-5997UbzunnxMzlml and electrolyte disorders (16 sources)Hypokalemia; Translations: [Hypokalemia]Onset: 11-17-2021 Resolved: 96-94-5721BnfzgcgzXhkptqhnsvnmvktv hemorrhage (11 sources)Hemorrhage of rectum and anus; Translations: [Hemorrhage of rectum and anus]EpisodicGenitourinary symptoms and ill-defined conditions (20 sources)Urge incontinence of urine; Translations: [Urge incontinence]Onset: 749334-49-8955UhsuplvCsoivrqmcfvt with complications and secondary hypertension (20 sources)Chronic kidney disease due to hypertension; Translations: [Hypertensive chronic kidney disease withstage 1 through stage 4 chronic kidney disease, or unspecified chronic kidney disease]Onset: 11-17-2021 Resolved: 00-06-9585RughoaoJuro disorders (20 sources)Depressive disorder; Translations: [Depression]Onset: 10-04-2023 76-51-5946JivheihSejgsrm (20 sources)Candidiasis of vagina; Translations: [Vaginal guero]Onset: 521099-07-7784FkqepebrXyuoqa and vomiting (4 sources)Nausea; Translations: [Nausea]73-39-1130IplhwnhvUnflkboxwgt deficiencies (20 sources)Vitamin D deficiency; Translations: [Vitamin D deficiency, unspecified]Onset: 311596-92-5610ZqlaunlBexsizoaqcdjid (20 sources)Arthritis of left hip; Translations: [Unilateral primary osteoarthritis, left hip]Onset: 10-17-2018 Resolved: 278644-15-1854KweqlcoIxjec aftercare (11 sources)Patient encounter status; Translations: [Aftercare following joint replacement surgery]ChronicOther and unspecified benign neoplasm (2 sources)Nevus lipomatosus cutaneous superficialis; Translations: [Benign lipomatous neoplasm of skin and subcutaneous tissue of unspecified sites] 25-03-4654HqobyixnWyncg connective tissue disease (11 sources)History of repair of hip joint; Translations: [Presence of left artificial hip joint]ChronicOther connective tissue disease (2 sources)History of right total knee replacement; Translations: [Presence of right artificial knee joint]15-52-5573OztpyuiKmlsn diseases of bladder and urethra (1 source)Detrusor overactivity; Translations: [Overactive bladder]Onset: 56-68-7914OjmlwykHonyh diseases of bladder and urethra (1 source)Overactive gtsxuwb06-34-5668RlbqzjbIkkjx diseases of kidney and ureters (11 sources)Secondary hyperparathyroidism; Translations: [Secondary hyperparathyroidism of renal origin]ChronicOther diseases of kidney and ureters (5 sources)Secondary hyperparathyroidism of renal origin; Translations: [SEC HYPERPARATHYROIDISM RENAL ORIGN]Onset: 11-17-2021 Resolved: 57-59-0220MuizdhqNyklg gastrointestinal disorders (5 sources)Diarrhea; Translations: [Diarrhea, unspecified]52-93-5891Rsgepolp Other hereditary and degenerative nervous system conditions (20 sources)Restless legs; Translations: [Restless legs syndrome]Onset: 428430-79-3360SmsztyuGgeoo lower respiratory disease (2 sources)Other forms of dyspnea; Translations: [Other forms of dyspnea]Onset: 16-68-8269JefoaxrnCpqey nervous system disorders (20 sources)Chronic pain; Translations: [Other chronic pain]Onset: 12-05-2023 61-40-4463KwqaxphXxsdm nervous system disorders (20 sources)Critical illness myopathy; 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] Onset: 345774-29-2019SmxnwzwZnowy non-epithelial cancer of skin (6 sources)Squamous cell carcinoma of skin of trunk; Translations: [Squamous cell carcinoma of skin of other part of trunk]95-27-5344ZmpdirgbZugoa non- traumatic joint disorders (20 sources)Knee pain; Translations: [Pain in right knee]EpisodicOther non- traumatic joint disorders (1 source)Pain in right hip; Translations: [PAIN IN RIGHT HIP]Onset: 03-27-2023 EpisodicOther non-traumatic joint disorders (2 sources)Pain in right knee; Translations: [Pain in joint, lower leg] 58-30-6466DhadbqudRtkyb nutritional; endocrine; and metabolic disorders (11 sources)Body mass index 30+ - obesity; Translations: [Body mass index (BMI) 36.0-36.9, adult]ChronicOther nutritional; endocrine; and metabolic disorders (16 sources)Hypomagnesemia; Translations: [Hypomagnesemia]00-78-2506UoopqimZhsnc nutritional; endocrine; and metabolic disorders (7 sources)Hypomagnesemia; Translations: [Disorders of magnesium metabolism] Onset: 64-48-4532HqlehmmWwktx nutritional; endocrine; and metabolic disorders (20 sources)Body mass index 40+ - severely obese; Translations: [Morbid (severe) obesity due to excess calories]Onset: 024609-44-7605UzuwtipVublt nutritional; endocrine; and metabolic disorders (20 sources)Obesity caused by energy imbalance; Translations: [Morbid (severe) obesity due to excess calories]Onset: 378870-04-1287BtrctfbFmuyw nutritional; endocrine; and metabolic disorders (9 sources)Morbid obesity; Translations: [Morbid (severe) obesity due to excess calories]92-68-8101NktvwjvJruwz nutritional; endocrine; and metabolic disorders (5 sources)Hyperuricemia without signs of inflammatory arthritis and tophaceous disease; Translations: [HU W/OSIGNS IA AND TOPHACEOUS DZ]Onset: 11-17-2021 Resolved: 23-22-6593FtzhbdsoFhdnk nutritional; endocrine; and metabolic disorders (20 sources)Hyperuricemia; Translations: [Hyperuricemia without signs of inflammatory arthritis and tophaceous disease]Onset: EpisodicOther skin disorders (4 sources)Seborrheic keratosis; Translations: [Other seborrheic keratosis] 58-29-0677RuoehtkfBiwqz skin disorders (4 sources)Lentiginosis; Translations: [Other melanin hyperpigmentation] 08-75-4063LsavbwnwObfya upper respiratory infections (20 sources)Chronic sinusitis; Translations: [Chronic sinusitis, unspecified] Onset: 228058-23-3593EeqkpmlMilsdersz heart disease (20 sources)Secondary pulmonary hypertension; Translations: [Other secondary pulmonary hypertension]Onset: 037823-37-9938BuhitybWbxypmoy codes; unclassified (20 sources)Postmenopausal state; Translations: [Asymptomatic menopausal state] Onset: 626872-05-0131TynjruvqMtqfudul codes; unclassified (20 sources)Bilateral lower limb edema; Translations: [Localized edema]Onset: 377362-40-3772JbafhapoDevhdgqmhip failure; insufficiency; arrest (adult) (20 sources)Chronic hypoxemic respiratory failure; Translations: [Chronic respiratory failure with hypoxia]Onset: 448723-78-3625FedjkbdKzqhmajkor arthritis and related disease (20 sources)Rheumatoid arthritis; Translations: [Rheumatoid arthritis, unspecified]Onset: 906041-70-6932TkwmsxrNvce and subcutaneous tissue infections (12 sources)Pustule ; Translations: [Local infection of the skin and subcutaneous tissue, unspecified]Onset: 075248-53-0597SfeofogfBfyaiaarmck; intervertebral disc disorders; other back problems (20 sources)Sacroiliitis, not elsewhere classified; Translations: [Herniation of nucleus pulposus of lumbar intervertebral disc]Onset: 05-22-2018 Resolved: 238210-40-5278JgwaacoNorcqddycdx; intervertebral disc disorders; other back problems (20 sources)Spinal stenosis of lumbar region; Translations: [Spinal stenosis, lumbar region without neurogenic claudication]Onset: 03-24-2023 Resolved: 27-19-6383EcbzxhoaKoeqrrsxzxfn (4 sources)CONTACT W/AND (SUSP) EXPOS COVID-19; Translations: [CONTACT W/AND (SUSP) EXPOS COVID-19]Onset: 60-66-0014Dihedenprbbh (4 sources)CHRN KIDNEY DISEASE STG 3 UNSP; Translations: [CHRN KIDNEY DISEASE STG 3 UNSP]Onset: 80-61-7016Btwkazdjbygk (3 sources)ACUTE COUGH; Translations: [ACUTE COUGH]Onset: 38-77-7800Yygeoedybziu (20 sources)Patient on antidepressant monitoring planOnset: Unclassified (6 sources)Arthropathy of right knee gunna64-01-3288Ppcispwvxdts (6 sources)Displacement of lumbar intervertebral juwm15-12-8357Wjlcxhiyeqrk (6 sources)Malignant colorectal reawqcuo84-21-5585Haxcp infection (1 source)COVID-19; Translations: [COVID-19]Onset: 04-05-2023 Past or Other Problems Problem ClassificationProblemDateDocumented DateEpisodic/ChronicAcute and unspecified renal failure (20 sources)Acute renal failure syndrome; Translations: [Acute kidney failure, unspecified]Onset: 12-28-2023 Resolved: 629236-65-7977YytwxsbpLnzzmwn dysrhythmias (20 sources)Atrial fibrillation; Translations: [Unspecified atrial fibrillation] Onset: 12-05-2023 Resolved: 854998-73-2619SwvsolwZjttzlk kidney disease (11 sources)Chronic kidney disease; Translations: [Chronic kidney disease, stage III (moderate)]Onset: 11-17-2021 Resolved: 95-46-6231Gzhmmdcntmxha and screening for infectious disease (2 sources)Contact with and (suspected) exposure to other viral communicable diseases; Translations: [Encounter for screening for human papillomavirus (HPV)] Onset: 08-30-2021 Resolved: 61-76-0370RrvzceavTixqbdf and fatigue (20 sources)Malaise; Translations: [Other malaise]Onset: 12-05-2023 Resolved: 750077-91-3785OjllvnzuEicg disorders (20 sources)Mood disordersOnset: 210792-30-9223Cqwlklsju of unspecified nature or uncertain behavior (20 sources)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; Translations: [Neoplasm of uncertain behavior of other specified sites]Onset: 10-07-2024 44-46-6377KtkkznwxSbdge aftercare (20 sources)Post-discharge follow-up; Translations: [Encounter for follow-up examination after completed treatment for conditions other than malignant neoplasm]Onset: 12-05-2023 Resolved: 166769-09-6237QoflhlznRbyth bone disease and musculoskeletal deformities (1 source)Other specified disorders of bone density and structure, right thigh; Translations: [OTH D/O BONE DEN STRUCT RT THIGH]Onset: 49-87-4090BosvokvzFvsfp connective tissue disease (20 sources)History of total knee arthroplasty; Translations: [Presence of right artificial knee joint]Onset: 12-05-2023 Resolved: 746558-59-8032QtustbeHqjkn infections; including parasitic (20 sources)Personal history of other infectious and parasitic diseases; Translations: [History of COVID-19]Onset: 106207-40-2862AwbpqgrjZgudr injuries and conditions due to external causes (20 sources)At moderate risk for fall; Translations: [History of falling]Onset: 10-04-2023 Resolved: 459188-02-6706VfjibmssMwqju lower respiratory disease (4 sources)Respiratory disorder, unspecified; Translations: [RESPIRATORY DISORDER UNSPECIFIED]Onset: 31-97-6363DmgaczokGombc lower respiratory disease (20 sources)Pneumonitis; Translations: [Other disorders of lung]Onset: 564195-07-1006JqizkgtlGdtsl lower respiratory disease (2 sources)Solitary pulmonary nodule; Translations: [Solitary pulmonary nodule] Onset: 20-28-0061VdkiqfyjQdstm non-traumatic joint disorders (18 sources)Pain in right hip joint; Translations: [Pain in right hip]Onset: 074178-67-1608FcbrhybeWpqha non-traumatic joint disorders (20 sources)Hip pain; Translations: [Pain in left hip]Onset: 10-04-2023 Resolved: 195465-59-6531QrxilsrwSrbxv screening for suspected conditions (not mental disorders or infectious disease) (20 sources)Encounter for screening mammogram for malignant neoplasm of breast; Translations: [Encounter for screening for malignant neoplasm of cervix]Onset: 96-81-8739VkqwpbwpVipix upper respiratory disease (2 sources)Other specified diseases of upper respiratory tract; Translations: [Other specified diseases of upper respiratory tract]Onset: 22-93-1973Skoxlkkc Other upper respiratory infections (5 sources)Acute upper respiratory infection, unspecified; Translations: [Viral URI J06.9]Onset: 08-30-2021 Resolved: 86-88-1282KgcpjyamVvsvhl media and related conditions (20 sources)Acute suppurative otitis media without spontaneous rupture of ear drum; Translations: [Acute suppurative otitis media without spontaneous rupture of ear drum, bilateral]Onset: 10-04-2023 Resolved: 522123-77-1714EzqtqpbyIesmqvmdb (except that caused by tuberculosis or sexually transmitted disease) (20 sources)Pneumonia, unspecified organism; Translations: [Pneumonia, organism unspecified]Onset: 026162-40-9285WlsewkrcOjjdedtb codes; unclassified (1 source)Asymptomatic menopausal state; Translations: [ASYMPTOMATIC MENOPAUSAL STATE]Onset: 82-89-1571XxecfkyrQnreokjb codes; unclassified (20 sources)Viral syndrome; Translations: [Other general symptoms and signs] Onset: 01-02-2025 Resolved: 150518-95-9440VxfqleiyZaugzqjat and history of mental health and substance abuse codes (20 sources)Depression screening positive; Translations: [Encounter for screening for depression]Onset: 10-04-2023 Resolved: 713703-47-6523ExgotpohSrlzfxsjittj (1 source)CONTACT W/AND (SUSP) EXPOS COVID-19; Translations: [CONTACT W/AND (SUSP) EXPOS COVID-19]Onset: 91-67-2441Vdkyqcygwead (1 source)ACUTE COUGH; Translations: [ACUTE COUGH]Onset: 73-82-9495Ycwwltnyyaan (1 source)CHRN KIDNEY DISEASE STG 3 UNSP; Translations: [CHRN KIDNEY DISEASE STG 3 UNSP]Onset: 17-81-6542Xqrha infection (20 sources)COVID-19; Translations: [Other specified viral infection]Onset: [id number] Results Test NameValueInterpretationReference RangeFacilityGastrointestinal pathogens panel KAYLEE+probe (Stl)on [id number] JEJUNI, COLI (GASTROINTESTINAL)0 NOMS HealthcareCAMPYLOBACTER JEJUNI, COLI (GASTROINTESTINAL)Not detectedNOMS HealthcareCLOSTRIDIUM DIFFICILE (TOXIN A/B) (GASTROINTESTINAL)0[facility] CLOSTRIDIUM DIFFICILE (TOXIN A/B) (GASTROINTESTINAL)Not detectedNOMS Healthcare CLOSTRIDIUM [id number] HealthcareCLOSTRIDIUM PERFRINGENSNot detectedNOMS HealthcareCRYPTOSPORIDIUM SPP (PARVUM, HOMINIS, RAN) (GASTROINTESTINAL)0NOMS HealthcareCRYPTOSPORIDIUM SPP (PARVUM, HOMINIS, RAN) (GASTROINTESTINAL)Not detectedNOMS HealthcareCYCLOSPORA CAYETANENSIS, CYSTOISOSPORA MELODIE (GASTROINTESTINAL)0NOMS HealthcareCYCLOSPORA CAYETANENSIS, CYSTOISOSPORA MELODIE (GASTROINTESTINAL)Not detectedNOMS HealthcareDIENTAMOEBA FRAGILIS, ENTAMOEBA HISTOLYTICA (GASTROINTESTINAL)0NOMS HealthcareDIENTAMOEBA FRAGILIS, ENTAMOEBA HISTOLYTICA (GASTROINTESTINAL)Not detectedNOMS HealthcareENTAMOEBA HISTOLYTICA0 NOMS HealthcareENTAMOEBA HISTOLYTICANot detectedNOMS HealthcareENTEROINVASIVE E. COLI (EIEC) / SHIGELLA SPP. (GASTROINTESTINAL)0NOMS HealthcareENTEROINVASIVE E. COLI (EIEC) / SHIGELLA SPP. (GASTROINTESTINAL)Not detectedNOMS HealthcareGIARDIA LAMBLIA (INTESTINALIS) (GASTROINTESTINAL)0NOMS HealthcareGIARDIA LAMBLIA (INTESTINALIS) (GASTROINTESTINAL)Not detectedNOMS HealthcareMICROSPORIDIUM (ENTEROCYTOZOON BIENEUSI, ENCEPHALITOZOON INTESTINALIS) (XT3BYRF Healthcare MICROSPORIDIUM (ENTEROCYTOZOON BIENEUSI, ENCEPHALITOZOON INTESTINALIS) (GANot detectedNOMS HealthcareNOROVIRUS (GENOGROUP 1, 2) (GASTROINTESTINAL)0NOMS HealthcareNOROVIRUS (GENOGROUP 1, 2) (GASTROINTESTINAL)Not detectedNOMS HealthcareROTAVIRUS A, B (GASTROINTESTINAL)0NOMS HealthcareROTAVIRUS A, B (GASTROINTESTINAL)Not detectedNOMS HealthcareSALMONELLA ENTERICA (GASTROINTESTINAL)0NOMS HealthcareSALMONELLA ENTERICA (GASTROINTESTINAL)Not detectedNOMS HealthcareSHIGA TOXIN- PRODUCING E. COLI (STEC) (GASTROINTESTINAL)0 NOMS HealthcareSHIGA TOXIN- PRODUCING E. COLI (STEC) (GASTROINTESTINAL)Not detectedNOMS HealthcareSHIGA TOXIN- PRODUCING E. COLI O157 (STEC O157) (GASTROINTESTINAL)0NOMS HealthcareSHIGA TOXIN- PRODUCING E. COLI O157 (STEC O157) (GASTROINTESTINAL)Not detectedNOMS HealthcareVIBRIO CHOLERAE, PARAHAEMOLYTICUS, VULNIFICUS (GASTROINTESTINAL)0NOMS HealthcareVIBRIO CHOLERAE, PARAHAEMOLYTICUS, VULNIFICUS (GASTROINTESTINAL)Not detectedNOMS Healthcare YERSINIA ENTEROCOLITICA (GASTROINTESTINAL)0NOMS HealthcareYERSINIA ENTEROCOLITICA (GASTROINTESTINAL)Not detectedNOMS HealthcareNOMS Healthcare Glomerular filtration rate (GFR) estimation in non- AmericanOrdered By: Kaylene López on 53-43-1744PCM/1.73 sq M.predicted among non-blacks MDRD (S/P/Bld) [Vol rate/Area]47 mL/min/{1.73_m2}Low>=60 mL/min/1.73m 2FOhioHealth Pickerington Methodist HospitalLaboratory - Chemistry and Chemistry - challengeOrdered By: Kaylene López on 13-51-1745Ltzjdhd [Mass/Vol]8.6 mg/dL8.5-10.1FOhioHealth Pickerington Methodist HospitalChloride [Moles/Vol]106 mmol/X07-143CrcuqhoxbNationwide Children'S HospitalCO2 [Moles/Vol]25.4 mmol/L21.0-32.0N[facility] Children'S HospitalCreatinine [Mass/Vol]1.15 mg/dLHigh0.55-1.02Nationwide Children'S HospitalGFR/1.73 sq M.predicted MDRD (S/P/Bld) [Vol rate/Area]57 mL/min/{1.73_m2} Low>=60 mL/min/1.73m 2FOhioHealth Pickerington Methodist HospitalGlucose [Mass/Vol]137 mg/rXLjdm14-760AdjploefcNationwide Children'S HospitalPotassium [Moles/Vol]3.3 mmol/L Low3.5-5.1FTwin City Hospitalodium [Moles/Vol]144 mmol/P782-832 [facility] HospitalUrea nitrogen [Mass/Vol]6.0 mg/dLLow7.0-18.0 [facility] HospitalUrea nitrogen/Creatinine [Mass ratio]5.2 mg/mg [facility] Medical Centererum or plasma anion gap determinationOrdered By: Kaylene López on 45-46-0916Llgkt gap [Moles/Vol]15.9 mmol/LFOhioHealth Pickerington Methodist HospitalAmbulatory Visit Summaryon 52-75-7587Sxmdnwomcw Visit SummaryAmbulatory Visit Summary DIANA CHAMPION :1955 Visit Date:07/22/2025 Ambulatory Visit Instructions Your Diagnosis Mixed incontinence Your Care Team Attending Physician - Kat MICHAUD, Amalia Primary Care Physician - TAPAN ZAZUETA MD [...] Amalia Stephens PA-C Where: [facility] [address] [address]- Medications What How Much When Instructions Unchanged albuterol (albuterol 0.083% Inh Meagan 3 mL) 3 Milliliter Unchanged baclofen 10 Milligram By Mouth Unchanged ferrous sulfate (ferrous sulfate 325 mg Tab) 1 Tablets By Mouth Every day Unchanged fluticasone/ umeclidinium/ vilanterol (fluticasone/ umeclidinium/ vilanterol 200 mcg-62.5mcg-25 mcg/ inh inhalation powder) Inhalation Every day [...] signed up for this yet, please contact [employer] at [phone] to get signed up today. Language Information Language assistance services are available as needed. [facility] CampusUrology Office/Clinic Noteon 98-31-0278Rroxsfz Office/Clinic NoteUrology Office/Clinic Note Chief Complaint 3 month f/u [...] in no acute distress. Assessment/Plan CHF - [facility] [place] CKD - Joana COPD/Pulm - [...] at some point. Pt states it stopped workingabout 3 yrs ago. No longer can just [...] urgency and UUI. VESIcare was stopped and Xdjzkain05 mg ER qd. BBSQ 27 UA today [...] day(s), # 30 tab(s), Refills(s) 4, Pharmacy: [facility], 163, cm, 07/22/25 8:42:00 EDT, Height/Length Dosing, 105.1, kg, 07/22/25 8:42:00 EDT, Weight Dosing 2. Mixed incontinence (N39.46: Mixed incontinence) UUI>DONNA -See #1 Ordered: mirabegron, 25 mg = 1 tab(s), Oral, Daily, X 30 day(s), # 30 tab(s), Refills(s) 4, Pharmacy: [facility], 163, cm, 07/22/25 8:42:00 EDT, [...] Urnls Dip Stick Auto w/o Microscopy POC 24204 Follow-up No qualifying data available Patient Education [...] qualifying data Procedure/Surgical History CE - Cataract extrac (more content not included)...[facility] CampusComment on above:Result Comment: Electronically Signed By: Amalia Stephens PA-C\.br\Date and Time Signed: 07/22/25 09:58 EDTGlomerular filtration rate (GFR) estimation in non- AmericanOrdered By: Kaylene López on 07-18-2025 GFR/1.73 sq M.predicted among non-blacks MDRD (S/P/Bld) [Vol rate/Area]40 mL/min/{1.73_m2}Low>=60 mL/min/1.73m [address] [place] [address] Laboratory - Chemistry and Chemistry - challengeOrdered By: Kaylene López on 23-69-0949Dfruxiv [Mass/Vol]8.7 mg/dL8.5-10.1FOhioHealth Pickerington Methodist Hospital Chloride [Moles/Vol]104 mmol/Y49-727XunpqpvfdNationwide Children'S HospitalCO2 [Moles/Vol]26.8 mmol/L21.0-32.0[facility]'S HospitalCreatinine [Mass/Vol]1.33 mg/dLHigh0.55-1.02N[facility] Children'S HospitalGFR/1.73 sq M.predicted MDRD (S/P/Bld) [Vol rate/Area]48 mL/min/{1.73_m2}Low>=60 mL/min/1.[address]m [address] [place], [place] [address]Glucose [Mass/Vol]164 mg/dLHigh 74-106N[facility]wide Children'S HospitalMagnesium [Mass/Vol]1.8 mg/dL1.8-2.4 [facility] HospitalPotassium [Moles/Vol]3.3 mmol/LLow3.5-5.1 [facility] Medical Centerodium [Moles/Vol]141 mmol/P982-574TzfqfygafNationwide Children'S HospitalUrea nitrogen [Mass/Vol]15.0 mg/dL7.0-18.0[facility]S HospitalUrea nitrogen/Creatinine [Mass ratio]11.3 mg/mgLakeHealth TriPoint Medical Centererum or plasma anion gap determinationOrdered By: Kaylene López on 50-76-0853Zpdzq gap [Moles/Vol]13.5 mmol/LFOhioHealth Pickerington Methodist HospitalGlomerular filtration rate (GFR) estimation in non- Ordered By: Nicolas Dickinson on 93-10-0301NOI/1.73 sq M.predicted among non-blacks MDRD (S/P/Bld) [Vol rate/Area]56 mL/min/{1.73_m2}Low>=60 mL/min/1.[address]m [address] [place], [place] [address]Laboratory - Chemistry and Chemistry - challengeOrdered By: Nicolas Dickinson on 66-56-7521Infwntg [Mass/Vol]8.7 mg/dL8.5-10.1FOhioHealth Pickerington Methodist HospitalChloride [Moles/Vol]106 mmol/E64-658LesvxsvoeNationwide Children'S HospitalCO2 [Moles/Vol]29.3 mmol/L21.0-32.0[facility] HospitalCreatinine [Mass/Vol]0.99 mg/dL0.55-1.02[facility] GFR/1.73 sq M.predicted MDRD (S/P/Bld) [Vol rate/Area]mL/min/{1.73_m2}>=60 mL/min/1.73m 2FOhioHealth Pickerington Methodist HospitalGlucose [Mass/Vol]206 mg/dLHigh 74-106N[facility] Children'S HospitalMagnesium [Mass/Vol]2.1 mg/dL1.8-2.4 [facility] HospitalPotassium [Moles/Vol]4.1 mmol/L3.5-5.1FTwin City Hospitalodium [Moles/Vol]143 mmol/G574-628SfjtfyilxNationwide Children'S HospitalUrea nitrogen [Mass/Vol]19.0 mg/dLHigh7.0-18.0[facility]'S HospitalUrea nitrogen/Creatinine [Mass ratio]19.2 mg/mgLakeHealth TriPoint Medical Centererum or plasma anion gap determinationOrdered By: Nicolas Dickinson on 84-40-9820Dwpnv gap [Moles/Vol]11.8 mmol/LFOhioHealth Pickerington Methodist HospitalXR Hip - right 3 Viewson 53-12-2410[address] [address] XRay Report Signed Patient: DIANA CHAMPION MR#: [id number] : 1955 Acct:[id number] Age/Sex: 69 / F ADM Date: 04/30/25 Loc: RAD Attending Dr: Jose Saucedo NP Ordering Physician: Jose Saucedo NP Date of Service: 04/30/25 Procedure(s): XR hip RT min 2V Accession Number(s): [id number] cc: Kaylene López NP; Jose Saucedo NP [address] [address] Patient Name: DIANA CHAMPION MRN: [id number] date: 1955 Sex: F Assigned Patient Location: [facility] Current Patient Location: RAD Accession/Order Number: [id number] Exam Date: 04/30/2025 13:45 Report Date: 04/30/2025 [...] Jr., D.O. 04/30/2025 1:46 PM Dictation Location: [place] [address] Electronically authenticated by: [id number] Y Date: 04/30/2025 13:46 Dictated By: Marcos Medina M.D. Signed By: 04/30/25 1349 DD/ 1346 TD/TT: Editing Computer Publisher:TBHRadiology, Radiologist, MD - 04/30/2025 [place] [address] XRay Report Signed Patient: DIANA CHAMPION MR#: [id number] : 1955 Acct:[id number] Age/Sex: 69 / F ADM Date: 04/30/25 Loc: RAD Attending Dr: Jose Saucedo NP Ordering Physician: Jose Saucedo NP Date of Service: 04/30/25 Procedure(s): XR hip RT min 2V Accession Number(s): [id number] cc: Kaylene López [employer]; Jose Saucedo NP The [address] [address] Patient Name: DIANA CHAMPION MRN: [id number] date: 1955 Sex: F Assigned Patient Location: [facility] Current Patient Location: RAD Accession/Order Number: [id number] Exam Date: 04/30/2025 13:45 Report Date: 04/30/2025 [...] Jr., D.O. 04/30/2025 1:46 PM Dictation Location: [place] [address] Electronically authenticated by: [id number] Y Date: 04/30/2025 13:46 Dictated By: Marcos Medina M.D. Signed By: 04/30/25 1349 DD/ 1346 TD/TT: Editing Computer Publisher: WILL HealthcareRadiology Study observation (narrative)NOM HealthcareXR Hip - right 3 ViewsOrdered By: Radiologist Radiology on 65-07-3903STGT Healthcare Work Phone: ambulatory Visit Summaryon 96-91-0799Jdwsylrhqu Visit SummaryAmbulatory Visit Summary DIANA CHAMPION Meng :1955 Visit Date:03/24/2025 Ambulatory Visit Instructions Your [...] MAG BLOUNT PA-C Where: [facility] [address] [place] [address]- Medications What How Much When Instructions Unchanged albuterol (albuterol 0.083% Inh Meagan 3 mL) 3 Milliliter Unchanged baclofen 10 Milligram By Mouth Unchanged ferrous sulfate (ferrous sulfate 325 mg Tab) 1 Tablets By Mouth Every day Unchanged fluticasone/ umeclidinium/ vilanterol (fluticasone/ umeclidinium/ vilanterol 200 mcg-62.5mcg-25 mcg/ inh inhalation powder) Inhalation Every day [...] you for choosing us for your care. [facility] CampusUrology Office/Clinic Noteon 64-00-1655Zkfcnku Office/Clinic NoteUrology Office/Clinic Note Chief Complaint 5 month follow [...] rashes or suspicious lesions Assessment/Plan CHF - [facility] [place] CKD - Joana COPD/Pulm - Samsa/Omballi. Required hospitalization in Aug. Colorectal CA 2004 tx'd w Chemo/rad. No recurrence. Follows w [...] at some point. Pt states it stopped workingabout 3 yrs ago. No longer can just [...] the plan. Reiterated it today to both ptand her family member. Risks/benefits/side effects discussed. Spoke to pharmacy myself - cancelled the Vesicare. Made sure they will only dispense the Trospium. They will try for XR but if insurance won't cover they'll dispense the IR BID. Pt currently rehabbing at [facility] d/t double pneumonia. Has been there x1 week, plan is to hopefully return home within the next week or so. F/u 3 mos to assess efficacy. Ordered: Body Mass Index (BMI) documented 3008F Current tobacco non-user 1036F Depression Screening Negative 3352F E&M of Est. Patient Moderate 30-39 Min 99807 Medication list documented in medical record 1159F [...] Never., 10/15/2024 Substance Abuse (more content not included)...[facility] Comment on above:Result Comment: Electronically Signed By: MAG BLOUNT PA-C\.victorina\Date and Time Signed: 03/24/2510:44 EDTMG Breast - bilateral Screeningon 69-54-9034[address] [address] Mammography Report Signed Patient: DIANA CHAMPION MR#: [id number] : 1955 Acct:[id number] Age/Sex: 69 / F ADM Date: 03/03/25 Loc: MAMMO Attending Dr: Kaylene López [employer] Ordering Physician: Kaylene López NP Results: Date of Service: 03/03/25 Follow Up: Procedure(s): MM screening mammo BI Accession Number(s): [id number] cc: Kaylene López NP Patient Name: DIANA CHAMPION MR#: [id number] : 1955 Exam Date: 03/03/2025 Ordering Doctor: CLEO López PHARMACY SALES REPRESENTATIVE RADIOLOGY REPORT PROCEDURE: MM SCREENING MAMMO BI [...] radiation, chemotherapy Family Cancers None LOCATION: [facility] BREAST COMPOSITION: The breasts are almost entirely [...] Dictated By: Marcos Medina M.D. Signed By: 03/03/253 DD/ 41 TD/TT: Editing Computer Publisher:TBHRadiology, Radiologist, MD - 03/03/2025 [place] [address] Mammography Report Signed Patient: DIANA CHAMPION MR#: [id number] : 1955 Acct:[id number] Age/Sex: 69 / F ADM Date: 03/03/25 Loc: MAMMO Attending Dr: Kaylene López NP Ordering Physician: Kaylene López NP Results: Date of Service: 03/03/25 Follow Up: Procedure(s): MM screening mammo BI Accession Number(s): [id number] cc: Kaylene López NP Patient Name: DIANA CHAMPION MR#: [id number] : 1955 Exam Date: 03/03/2025 Ordering Doctor: CLEO López PHARMACY SALES REPRESENTATIVE RADIOLOGY REPORT PROCEDURE: MM SCREENING MAMMO BI [...] radiation, chemotherapy Family Cancers None LOCATION: [facility] BREAST COMPOSITION: The breasts are almost entirely [...] Marcos Medina M.D. Signed By: 03/03/251642 DD/ 164 TD/TT: Editing Computer Publisher: NOMRajendra HealthcareRadiology Study observation (narrative)[facility] Breast - bilateral ScreeningOrdered By: Radiologist Radiology on 54-20-5135SDEL Healthcare Work Phone: Office Visiton 05-55-5635Apaypg-up [id number] Diana Champion 1955 F Date Provider Department Center 01/23/2025 Siddharth-HETAL [facility] Family History Problem Relation Age of Onset Heart failure Mother Heart disease Father Family Status - Relation Status Age at Mother Father Level of Service:[address] [place] OFFICE/OUTPATIENT ESTABLISHED LOW MDM [address] [facility] HospitalLaboratory - Microbiology and Antimicrobial susceptibilityon 63-31-6260KUEX-CoV-2 (COVID-19) RNA KAYLEE+probe Ql (Unsp spec) NegativeThree Rivers [facility] Panel Informationon 34-78-2384LZH ANegativeNOMS HealthcareFLU BNegativeNOMS HealthcareInterpretation and review of laboratory resultsNormalCox North HealthcareXR Hip - right 3 Viewson 12-17-2024 Imaging Result: AP and Lateral right hip No acute fracture Mild SI joint arthritic changes Pt has severe arthritis to right hip joint with subchondral cyst and sclerosis to femoral head and acetabulum. Stable hardware left hip on AP view Impression: Severe right hip arthritis.[facility] HospitalRadiology Study observation (narrative)[facility] HospitalXR Knee - right 1 or 2 Viewson 93-25-8372Cqtezvf Result: AP and Lateral of right knee: Surgical position and alignment of prosthetic components without evidence of loosening or wear to femora, tibial or patellar components, The alignment appears to be anatomic. No evidence of accelerated or asymmetric wear to tibial tray or patella button. No evidence of fracture or dislocation. Impression: Unremarkable right total knee arthroplastyNOMemorial Medical CenterRadiology Study observation (narrative)[facility] Panel Informationon 29-04-5719Pohmyfgpph: simple Destruction method: cryotherapy Informed consent: discussed and consent obtained Informed consent comment: The risks of the procedure were discussed, including, but not limited to risks of scarring, darker or central office operator pigmentary changes, recurrence, infection, and incomplete [...] or tenderness. Additional details: Previous accession number: [id number]-Jewish West County HospitalNo Panel InformationOrdered By: Pat Mcfarland on 13-77-0538ADMI Magin Work Phone: abstracton [id number] Diana Champion 1955 F Date Provider Department Center 10/24/2024 Nicholas-EMELIA YOO [facility] ONC DCC Family History Problem Relation Age of Onset Heart failure Mother Heart disease Father Family Status - Relation Status Age at Mother FatherNormalUniversity of [facility] Vista [facility] Urineon 90-53-3445Qoohhwxr identified Cx Nom (U)Microbiology PROCEDURE: Urine Culture [R1] SOURCE: U Random [...] Locations R1: This test was performed at: [facility], [address] [place] [address], [address]- , [place], MzgidoGxgcpdKettering Health Main CampusComment on above:Performed By: #### [id number] #### [facility] [address] [place] [address]Irssglysxg Visit Summaryon 49-36-4682Tfdrtfyzbo Visit Summary Ambulatory Visit Summary DIANA CHAMPION [...] Monday 9:40 AM EDT With: JOSE ALEJANDRO PA-C, MAG E Where: [facility] [address] [place] [address] [place] [address]- Medications What How Much When Instructions Unchanged albuterol (albuterol 0.083% Inh Meagan 3 mL) 3 Milliliter Unchanged baclofen 10 Milligram By Mouth Unchanged ferrous sulfate (ferrous sulfate 325 mg Tab) 1 Tablets By Mouth Every day Unchanged fluticasone/ umeclidinium/ vilanterol (fluticasone/ umeclidinium/ vilanterol 200 mcg-62.5mcg-25 mcg/ inh inhalation powder) Inhalation Every day [...] you for choosing us for your care. [facility] CampusNo Panel Informationon 43-44-2414Zhpl of biopsy: tangential Informed consent: discussed and [...] Photo taken Amount of lidocaine used: 0.5 [facility]36on Faxed to [facility]. Ticker put in for Nov 2024 for patient to be scheduled with Dr. Church.[facility]36on 57-43-173353Cincvvg called requesting clearance prior to cataract surgery. 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 Please advise. Thanks.[facility] Medical CenterEPITHELIAL CELLSon 17-27-3926Mprusutiyi cells LM Ql (Urine sed) Epithelial Cells Few NOMS HealthcareNo Panel Informationon 07-51-2039KQHZQSBDXAVVH HealthcareRESULT 1 on 79-99-0290YNTDKN 1 Result 1 Moderate budding yeast present. NOMS HealthcareRESULT 2on 58-85-4650LHSOKE 2 Result 2 Few gram positive cocci NOMS HealthcareRESULT 3on 00-07-2565DKVBIZ 3 Result 3 [employer] NOMS HealthcareRESULT 4on 82-91-5005WWPJEN 4 Result 4 [employer] AND GENERATOR [employer] MAKER NOMS HealthcareWHITE BLOOD CELLSon 00-88-2850GKPYH BLOOD CELLS White Blood Cells NOMS HealthcareWHITE BLOOD CELLSFewNOMS HealthcareALL CBC WITH AUTO DIFFon 87-03-4590LAVZQVENT ABSOLUTE AUTO0.1NOMS HealthcareBasophils/100 WBC (Bld)0.5 % 0.2 - 2.0 %NOMChristian HospitalEosinophils/100 WBC (Bld)1.5 %0.9 - 7.0 %[facility] County HospitalErythrocyte distribution width (RBC) [Ratio]13.0 %11.0 - 15.0 %[facility] HospitalHematocrit (Bld) [Volume fraction]39.0 %36.0 - 48.0 %[facility] Hemoglobin (Bld) [Mass/Vol]12.2 g/dL12.0 - 16.0 g/dLBarnes-Jewish West County HospitalIMMATURE GRANULOCYTES ABS AUTO0.22HighBarnes-Jewish West County HospitalImmature granulocytes/100 WBC (Bld) 2.4 %High0.0 - 0.5 %[facility] HospitalInterpretation and review of laboratory resultsAbnormalBarnes-Jewish West County HospitalLYMPHOCYTES ABSOLUTE AUTO1.6NOChristian Hospital Lymphocytes/100 WBC (Bld)17.2 %Low20.5 - 60.0 %[facility] HospitalH (RBC) [Entitic mass]29.7 pg26.7 - 34.0 pgSullivan County Memorial HospitalHC (RBC) [Mass/Vol]31.3 g/dL29.9 - 35.2 g/dLSullivan County Memorial HospitalV (RBC) [Entitic vol]94.9 fL81.0 - 99.0 fLBarnes-Jewish West County HospitalMONOCYTES ABSOLUTE AUTO0.8NOChristian HospitalMonocytes/100 WBC (Bld)8.3 % 1.7 - 12.0 %[facility] HospitalNEUTROPHILS ABSOLUTE AUTO6.4NOChristian Hospital Neutrophils/100 WBC (Bld)70.1 %43.0 - 75.0 %[facility] County HospitalPlatelet mean volume (Bld) [Entitic vol]8.8 fLLow9.5 - 13.5 fLBarnes-Jewish West County HospitalTB EO #0.1NOMS [facility] Va Medical CenterTB AKY652WSRQ [facility] RBC4.11LowNOBates County Memorial Hospital WBC9.1NOMS HealthcareCLINISYNCNGRADY MEMORIAL HOS[facility]ITAL – CHICKASHA HealthcareTelemedicineon [id number] Diana Champion 1955 F Date Provider Department Center 07/11/2024 EMELIA MORALES [facility] ONC [facility] Family History Problem Relation Age of Onset Heart failure Mother Heart disease Father Family Status - Relation Status Age at Mother Father Level of Service:06329 [place] PHYS/QHP TELEPHONE EVALUATION 21-30 MIN () Reason for Visit and Comments: Telehealth Phone Visit [822] - Tracheobronchomalacia follow up per Dr Canseco. NormalUniParkview Health Bryan Hospitalon 42-96-3573ZTS&P reviewed. The patient was examined and there [...] focal deficit PSYCH: appropriate mood, affect, and judgement.NormalUnDayton Children's HospitalNURSNOTEon 90-32-7975VQXXCWAXVdivaf up at [facility] [place] with Matthew Vargas May resume a Regular Diet and home medications.NormalUnDayton Children's HospitalNURSNOTEBronchoscopy Findings: TracheobronchomalaciaNormal [facility] Hospital - DublinTelephoneon [id number] Diana Champion 1955 F Date Provider Department Center 06/27/2024 SOURAV DAVID ONC [facility] Family History Problem Relation Age of Onset Heart failure Mother Heart disease Father Family Status - Relation Status Age at Mother FatherNormalUniRegency Hospital ToledoPrep for Procedureon 06-26-2024 Prep for [id number] Diana Champion 1955 F Date Provider Department Center 06/26/2024 EMELIA MORALES [facility] PREOP ME Medical C Family History Problem Relation Age of Onset Heart failure Mother Heart disease Father Family Status - Relation Status Age at Mother FatherNormalUniRegency Hospital ToledoHPon 20-79-9194II Attestation signed by Emelia Yoo MD at [...] Age: 68 y.o. : 1955 Account No.: [id number] Referring physician: Dr. Bo Mcclain Chief complaint: Recurreny pneumonia HPI Diana Champion is a 68 y.o. female with PMHx of reportedly COPD, chronic hypoxic respiratory failure on 2L home O2 who is presenting to clinic as a new patient after being referred by Dr. Bo Baker of [facility]. Patient has been admitted 4 times over [...] years. 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 Her family history is positive for COPD [...] Past Medical History: Diagnosis Date Asthma Cancer ([facility]) COPD (chronic obstructive pulmonary disease) ([facility]) Coronary artery [...] mouth every other day. Yes Historical Provider, qrxaniyawko-blxllnykb-giicucuu 100-62.5-25 mcg blister with device Yes Historical [...] 20 mEq ER ta (more content not included)...Normal [facility] - DublinTelemedicineon [id number] Diana Champion 1955 Date Provider Department Center 06/25/2024 383-EMELIA YOO [facility] Family History Problem Relation Age of Onset Heart failure Mother Heart disease Father Family Status - Relation Status Age at Mother Father Level of Service:36203 [place] PHYS/QHP TELEPHONE EVALUATION 21-30 MIN () Reason for Visit and Comments: New Patient [632] - 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 CT DONE 04-11-24 AND 06-07-24 AT [facility]. RECORDS SCANNED INTO MEDIA. FILMS REQUESTED- requested 3 times and POWERSHARE IS DOWN. Could not get films.Normal [facility] Visiton 88-07-3923Kjwxal-up visit [id number] Diana Champion 1955 Date Provider Department Center 05/13/2024 271-HETAL CHURCH [facility] Family History Problem Relation Age of Onset Heart failure Mother Heart disease Father Family Status - Relation Status Age at Mother Father Level of Service:12165 [place] OFFICE/OUTPATIENT ESTABLISHED MOD MDM [address] [facility] HospitalErythrocyte distribution width Auto (RBC) [Ratio]on 81-43-6966Ypxiqvrcych distribution width (RBC) [Ratio]13.2 %11.0-15.0 [facility] HospitalEstimated glomerular filtration rate (GFR) non- Americanon 98-84-3605ODL/1.73 sq M.predicted among non-blacks MDRD (S/P/Bld) [Vol rate/Area]57 mL/min/{1.73_m2}>=60[facility] HospitalHematocrit Auto (Bld) [Volume fraction]on 25-09-3381Ctsecuezek (Bld) [Volume fraction]38.7 %36.0-48.0[facility] HospitalHemoglobin [Mass/volume] in Bloodon 19-40-0085Aslcyjmanx (Bld) [Mass/Vol]12.2 g/dL12.0-16.0 [facility] HospitalLaboratory - Chemistry and Chemistry - challengeon 50-07-4016Cgnvdhz [Mass/Vol]3.0 g/dL3.4-5.0[facility] HospitalCalcium [Mass/Vol]8.8 mg/dL8.5-10.1FOhioHealth Pickerington Methodist HospitalChloride [Moles/Vol]104 mmol/W79-992OifbwnhhsNationwide Children'S HospitalCO2 [Moles/Vol]32.2 mmol/L21.0-32.0[facility] HospitalCreatinine [Mass/Vol]0.97 mg/dL0.55-1.02[facility] HospitalGFR/1.73 sq M.predicted MDRD (S/P/Bld) [Vol rate/Area]mL/min/{1.73_m2}>=60[facility] HospitalGlucose [Mass/Vol]67 mg/tL75-620XejepgskoNationwide Children'S Hospital Magnesium [Mass/Vol]1.9 mg/dL1.8-2.4FOhioHealth Pickerington Methodist HospitalPotassium [Moles/Vol]3.4 mmol/L3.5-5.1FTwin City Hospitalodium [Moles/Vol] 143 mmol/W819-290WemssalbsNationwide Children'S HospitalUrate [Mass/Vol]5.0 mg/dL 2.6-6.0[facility] HospitalUrea nitrogen [Mass/Vol]16.0 mg/dL 7.0-18.0[facility] HospitalUrea nitrogen/Creatinine [Mass ratio] 16.5 mg/mgNationwide Children'S HospitalLeukocytes [#/volume] corrected for nucleated erythrocytes in Blood by Automated counon 34-96-4403XRS corrected for nucl RBC Auto (Bld) [#/Vol]8.1 10 3/uL4.0-11.0[facility] MCH Auto (RBC) [Entitic mass]on 25-99-8133ONC (RBC) [Entitic mass]30.4 pg 26.7-34.0[facility]S HospitalMCHC Auto (RBC) [Mass/Vol]on 70-47-8786MIHX (RBC) [Mass/Vol]31.5 g/dL29.9-35.2FOhioHealth Pickerington Methodist HospitalMCV Auto (RBC) [Entitic vol]on 63-85-6471NRZ (RBC) [Entitic vol]96.5 fL 81.0-99.0[facility] HospitalNo Panel Informationon 33-71-3021Dwhnt Random Verykvhnkt60.27 mg/dL20.00-300.00[facility]S HospitalUrine Random Total Protein<6.0 mg/dL<=11.9[facility]25-Hydroxy Vitamin D Total37.1 ng/mLNationwide Children'S HospitalComment on above:<20 ng/mL Vit D -<30 ng/mL Vit D gkbmajosxnrp37-294 ng/mL Vit D sufficient>100 ng/mL Potential ToxicityParathyroid Hormone (Intact)36 pg/mL15-65 [facility]S HospitalComment on above:Performed at: - Lab[address] [id number] Director: Raphael Marrero PhD, Phone: [phone] Level3.2 mg/dL2.6-4.7FOhioHealth Pickerington Methodist HospitalPlatelet mean volume Auto (Bld) [Entitic vol]on 98-87-6836Aizmfund mean volume (Bld) [Entitic vol]9.1 fL9.5-13.5FOhioHealth Pickerington Methodist Hospital Platelets Auto (Bld) [#/Vol]on 90-59-4327Chlafsyil (Bld) [#/Vol]247 10 3/uL 150-450[facility]S HospitalRBC Auto (Bld) [#/Vol]on 53-11-2952ZYZ (Bld) [#/Vol]4.01 10 6/uL4.20-5.40[facility] Medical Centererum or plasma anion gap determinationon 49-42-9826Gpqog gap [Moles/Vol]10.2 mmol/L [facility] Medical CenterYMPTOMATIC COVID-19 ANTIGENon 51-21-5016OJD The MetroHealth SystemComment on above:Result Comment: This test has not been FDA [...] declaration is terminated or authorization is revoked sooner.Performed By: #### CVDAGS #### [facility] [address] [place] [address] Dr. Shayne Fonseca-CoV-2 (COVID-19) RNA KAYLEE+probe Ql (Unsp spec)Positive AbnormalNEGATIVEThe [facility]ma HealthComment on above:Performed By: #### CVDAGS #### [facility] [address] [place] [address] Dr. Shayne RoldanXR LSPINE 2_3 VIEWSon 44-75-8117GG LSPINE 2_3 VIEWSEXAMINATION: XR LSPINE 2_3 VIEWS HISTORY: Pain in [...] Electronically authenticated by: STEPH GRANADOS Date: 2023-03-24 12:52[facility] INTACTon 34-06-9339SHM, Grtgse92 pg/mLCritically dffj38-24 The [facility] HealthComment on above:Performed By: #### PTHINT #### [facility] [address] [place] [address] Dr. Shayne RoldanHEMOGRAM AND PLATELon 92-54-4612Wftkeliucp (Bld) [Volume fraction]44.4 %Rezdxi25.0-48.0The [facility] HealthComment on above:Performed By: #### HH #### [facility] [address] [place] [address] Dr. Shayne RoldanHemoglobin (Bld) [Mass/Vol]14.5 g/gOEniuho49.0-16.0The [facility] HealthComment on above:Performed By: #### HH #### [facility] [address] [place] [address] Dr. Shayne RoldanORANGE REGION[facility] (RBC) [Entitic mass]30.3 gzNdwwcp36.7-34.0The [facility] HealthComment on above:Performed By: #### HH #### [facility] [address] [place] [address] Dr. Shayne Spears (RBC) [Mass/Vol]32.7 g/gZZvfefp54.9-35.2The [facility] HealthComment on above:Performed By: #### HH #### [facility] [address] [place] [address] Dr. Shayne SpearsV (RBC) [Entitic vol]92.9 uUHzajlm61.0-99.0The [facility] HealthComment on above:Performed By: #### HH #### [facility] [address] [place] [address] Dr. Shayne RoldanPLT367 103/kcUxvsax791-352Gnl [facility] HealthComment on above: Performed By: #### HH #### [facility] [address] [place] [address] Dr. Shayne RoldanRBC4.78 106/ulNormal4.20-5.40The [facility] HealthComment on above:Performed By: #### HH #### [facility] [address] [place] [address] Dr. Shayne RoldanWBC9.9 103/ulNormal4.0-11.0The [facility] HealthComment on above: Performed By: #### HH #### [facility] [address] [place] [address] Dr. Shayne RoldanMAGNESIUMon 66-11-3253Izymchtzz [Mass/Vol]1.6 mg/dLCritically low 1.8-2.4The [facility] HealthComment on above:Performed By: #### MG, RENAL, URIC #### [facility] [address] [place] [address] Dr. Shayne RoldanRENAL FUNCTION PANELon 21-26-0692Wabxcnm [Mass/Vol]3.4 g/dLNormal 3.4-5.0The [facility] HealthComment on above:Performed By: #### MG, RENAL, URIC #### [facility] [address] [place] [address] Dr. Shayne RoldanCalcium [Mass/Vol]8.7 mg/dLNormal8.5-10.1The [facility] Comment on above:Performed By: #### MG, RENAL, URIC #### [facility] [address] [place] [address] Dr. Shayne RoldanChloride [Moles/Vol]104 mmol/CUkbtnd05-804Tey [facility] Comment on above:Performed By: #### MG, RENAL, URIC #### [facility] [address] [address] [address] Shayne RoldanCO2 [Moles/Vol]25.9 mmol/WDelqmq87.0-32.0[facility] Comment on above:Performed By: #### MG, RENAL, URIC #### [facility] [address] [place] [address] Dr. Shayne RoldanCreatinine [Mass/Vol]1.19 mg/dLCritically high0.55-1.02The [facility] HealthComment on above:Performed By: #### MG, RENAL, URIC #### [facility] [address] [place] [address] Dr. Shayne PeñaGFR-AF ICCYNYHL21 mL/min/1.24g7Bjakluyxfl low>=60The [facility] HealthComment on above:Performed By: #### MG, RENAL, URIC #### [facility] [address] [place] [address] Dr. Shayne PeñaGFR-NON AF DVYIEHNA92 mL/min/1.75k2Pchcakqzgw low>=60The [facility] HealthComment on above:Performed By: #### MG, RENAL, URIC #### [facility] [address] [place] [address] Dr. Shayne RoldanGlucose [Mass/Vol]193 mg/dLCritically kszp63-600OmyWexner Medical CenterComment on above:Performed By: #### MG, RENAL, URIC #### [facility] [address] [place] [address] Dr. Shayne RoldanPhosphate [Mass/Vol]3.2 mg/dLNormal2.6-4.7The [facility] Comment on above:Performed By: #### MG, RENAL, URIC #### [facility] [address] [place] [address] Dr. Shayne RoldanPotassium [Moles/Vol]3.9 mmol/LNormal3.5-5.1[facility] Comment on above:Performed By: #### MG, RENAL, URIC #### [facility] [address] [address] [address] Shayne Venegasum [Moles/Vol]140 mmol/VNhnbbd721-698PqyWexner Medical Center Comment on above:Performed By: #### MG, RENAL, URIC #### [facility] [address] [place] [address] Dr. Shayne Booker nitrogen [Mass/Vol]17.0 mg/dLNormal7.0-18.0The [facility] HealthComment on above:Performed By: #### MG, RENAL, URIC #### [facility] [address] [place] [address] Dr. Shayne Espinoza RANDOM W/MICROSCOPICon 13-64-6605KWEUFAJRRBRKDNalzaqjdBJOL SEENWexner Medical CenterComascension macomb on above:Performed By: #### MG, RENAL, URIC #### [facility] [address] [place] [address] Dr. Shayne Bhagat Ql (U)NegativeNormalNEGATIVEWexner Medical Center Comment on above:Performed By: #### MG, RENAL, URIC #### [facility] [address] [place] [address] Dr. Shayne Lomeli SEENNormalNONE SEENWexner Medical CenterComascension macomb on above:Performed By: #### MG, RENAL, URIC #### [facility] [address] [place] [address] Dr. Shayne Sierra (U)CLEARNormalCLEARWexner Medical CenterComment on above: Performed By: #### MG, RENAL, URIC #### [facility] [address] [place] [address] Dr. Shayne Au (U)LT. YELLOWNormalYELLOWWexner Medical CenterComment on above:Performed By: #### MG, RENAL, URIC #### [facility] [address] [place] [address] Dr. Shayne Sharpystals LM Nom (Urine sed)NONE SEENNormalNONE SEENWexner Medical CenterComascension macomb on above:Performed By: #### MG, RENAL, URIC #### [facility] [address] [place] [address] Dr. Shayne Peñapithelial cells LM Ql (Urine sed)RARENormalNONE SEEN /RAREThe [facility] HealthComment on above:Performed By: #### MG, RENAL, URIC #### [facility] [address] [address] [address] Shayne RoldanGlucose Ql (U)NegativeNormalNEGATIVEWexner Medical CenterComment on above:Performed By: #### MG, RENAL, URIC #### [facility] [address] [address] [address] Shayne RoldanHemoglobin Ql (U)NegativeNormalNEGATIVEKettering Health Greene Memorial on above:Performed By: #### MG, RENAL, URIC #### [facility] [address] [address] [address] Shayne RoldanKetones Ql (U)NegativeNormalNEGATIVEWexner Medical CenterComment on above:Performed By: #### MG, RENAL, URIC #### [facility] [address] [address] [address] Shayne RoldanLEUKOCYTESNegativeNormalNEGATIVEThe [facility] HealthComment on above:Performed By: #### MG, RENAL, URIC #### [facility] [address] [place] [address] Dr. Shayne RoldanMUCOUSNONE SEENNormalNONE SEENThe [facility] HealthComment on above:Performed By: #### MG, RENAL, URIC #### [facility] [address] [address] [address] Shayne RoldanNitrite Ql (U)NegativeNormalNEGATIVEWexner Medical CenterComment on above:Performed By: #### MG, RENAL, URIC #### [facility] [address] [address] [address] Shayne RoldanpH (U)5.0 [pH]Normal5-9The [facility] HealthComment on above: Performed By: #### MG, RENAL, URIC #### [facility] [address] [address] [address] Shayne RoldanPyqtzAUT5-2Cymqli3-3Gzi [facility] on above:Performed By: #### MG, RENAL, URIC #### [facility] [address] [address] [address] Shayne RoldanSPEC GRAVITY1.780Ezwgvt1.005-<=1.025The [facility] HealthComment on above:Performed By: #### MG, RENAL, URIC #### [facility] [address] [address] [address] Shayne RoldanUA PROTEINNegativeNormalNEGATIVE/ TRACEThe [facility] Comment on above:Performed By: #### MG, RENAL, URIC #### [facility] [address] [place] [address] Dr. Shayne Hopkins Qn (U)0.2 {Rogelio'U}/dLNormal0.2 - 1.0The [facility] on above:Performed By: #### MG, RENAL, URIC #### [facility] [address] [place] [address] Dr. Shayne RoldanWBC0-2AbnormalNONE SEENWexner Medical CenterComment on above: Performed By: #### MG, RENAL, URIC #### [facility] [address] [place] [address] Dr. Shayne RoldanURIC ACID SERUMon 84-15-8055Ndilq [Mass/Vol]6.1 mg/dLCritically high2.6-6.0The [facility] HealthComment on above:Performed By: #### MG, RENAL, URIC #### [facility] [address] [place] [address] Dr. Shayne Wood T PROTEIN CREAT RATIOon 99-35-8210Kutysmm (U) [Mass/Vol] 13.0 mg/dLCritically high<=12.0The [facility] HealthComascension macomb on above:Performed By: #### MG, RENAL, URIC #### [facility] [address] [place] [address] Dr. Shayne RoldanUR PROT CREAT RAT0.16NormalThe [facility] HealthComment on above: Performed By: #### MG, RENAL, URIC #### [facility] [address] [address] [address] Shayne Wood CREAT83.60 mg/xCCodfxt71.00-300.00[facility] Comment on above:Performed By: #### MG, RENAL, URIC #### [facility] [address] [address] [address] Shayne RoldanVITAMIN D 25 OHon 01-67-0174UJL D 25-OH41.6 ng/mLNOhio State East HospitalComment on above:Performed By: #### MG, RENAL, URIC #### [facility] [address] [address] [address] Shayne Vilchis RANGES[place] Marymount HospitalComment on above: Result Comment: <20 ng/mL Vit D deficient 20 - <30 ng/mL Vit D insufficient 30 - 100 ng/mL Vit D sufficient >100 ng/mL Potential ToxicityPerformed By: #### MG, RENAL, URIC #### [facility] [address] [place] [address] Dr. Shayne RoldanXR CHEST 2 Von 66-95-4121VN CHEST 2 VEXAMINATION: XR CHEST 2 V HISTORY: Cough COMPARISON: Chest x-rays 06/08/2022 TECHNIQUE: PA and lateral chest x-rays FINDINGS: The lung parenchyma is free of consolidation or infiltrate. No pneumothorax or pleural effusion. The cardiac, mediastinal and hilar contours are normal. The visualized osseous structures exhibit no gross abnormality. IMPRESSION: No acute cardiopulmonary abnormality. Electronically authenticated by: BRITTANY GALDAMEZ Date: 2023-02-22 16:15N[facility]D PRATEEK CADon 29-27-1615UL MAMM SCREEN 3D PRATEEK CAD Patient: DIANA CHAMPION Exam Date: 12/15/2022 : 1955 Gender:F Ordering : DR JACK HALL . Admission #: [id number] Family : Order #: [id number] CLICK HERE TO VIEW EXAM RADIOLOGY REPORT PROCEDURE: MAMMOGRAM SCREENING 3D BILATERAL CAD COMPARISON: MG MAMM SCREEN 3D PRATEEK CAD, 11/26/2021. INDICATIONS: Calculator Name NCI Breast Cancer Risk Assessment Tool 5 Year Breast Cancer Risk 1.20% Lifetime Breast Cancer Risk 4.40% Personal Breast Cancer No Personal Ovarian Cancer No Treatments Excision, radiation, chemotherapy Family Cancers None LOCATION: [facility] BREAST COMPOSITION: Almost entirely fatty. FINDINGS: [...] by: Brittany Walters MD on 12/15/2022 at 10:51[facility] SystemXR DEXA BONE DENSITYon 85-83-2502QL DEXA BONE DENSITYEXAMINATION: XR DEXA BONE DENSITY, 12/15/2022 9:10 AM [...] Electronically authenticated by: STEPH GRANADOS Date: 2022-12-15 09:50[facility] Health SystemPA ACOG PANEL 2: 30 to 65on 11-16-2022..NormalThe [facility] HealthComment on above:Performed By: #### [id number] #### [facility] [address] [place] [address] Dr. Shayne Olson Gdln ACOG TestingCommentAdena Health SystemComment on above:Result Comment: <21 or >65 or no age providedPerformed By: #### [id number] #### [facility] [address] [place] [address] Dr. Shayne RoldanDIAGNOSIS:CommentCleveland Clinic Hillcrest Hospital on above: Result Comment: NEGATIVE FOR INTRAEPITHELIAL LESION OR MALIGNANCY.Performed By: #### [id number] #### [address] [address] Dr[address] Shayne RoldanMethodology:CommentCleveland Clinic Hillcrest Hospital on above: Result Comment: This liquid based ThinPrep(R) pap test was screened with the use of an image guided system.Performed By: #### [id number] #### [address] [address] Dr. Shayne RoldanNote:CommentCleveland Clinic Hillcrest Hospital on above:Result Comment: The Pap smear is a screening test designed to aid in the detection of premalignant and malignant conditions of the uterine cervix. It is not a diagnostic procedure and should not be used as the sole means of detecting cervical cancer. Both false-positive and false-negative reports do occur. .Performed By: #### [id number] #### [address] [address] Dr[address] Shayne RoldanPerformed by:CommentCleveland Clinic Hillcrest Hospital on above: Result Comment: Dakota Aguilar, Proof Plate Maker (ASCP)Performed By: #### [id number] #### [place] [address] Dr. Shayne RoldanSpecimen adequacy:CommentCleveland Clinic Hillcrest Hospital on above:Result Comment: Satisfactory for evaluation. Endocervical and/or squamous metaplastic cells (endocervical component) are present.Performed By: #### [id number] #### [facility] [address] [place] [address] Dr. Shayne RoldanRENAL FUNCTION PANELon 01-99-3878Hzkpybm [Mass/Vol]3.4 g/dLNormal 3.4-5.0The [facility] on above:Performed By: #### MG, RENAL, URIC #### [facility] [address] [place] [address] Dr. Shayne RoldanCalcium [Mass/Vol]8.4 mg/dLCritically low8.5-10.1The [facility] Generalment on above:Performed By: #### MG, RENAL, URIC #### [facility] [address] [address] [address] Shayne RoldanChloride [Moles/Vol]103 mmol/HZghqpr35-306Jhe [facility] Comment on above:Performed By: #### MG, RENAL, URIC #### [facility] [address] [address] [address] Shayne RoldanCO2 [Moles/Vol]27.8 mmol/SPdrgtx17.0-32.0The [facility] Comment on above:Performed By: #### MG, RENAL, URIC #### [facility] [address] [place] [address] Dr. Shayne RoldanCreatinine [Mass/Vol]1.02 mg/dLNormal0.55-1.02The [facility] HealthComment on above:Performed By: #### MG, RENAL, URIC #### [facility] [address] [place] [address] Dr. Bella ChangEGFR-AF INDIAN>60Normal>=60The [facility] HealthComment on above:Performed By: #### MG, RENAL, URIC #### [facility] [address] [place] [address] Dr. Bella ChangEGFR-NON AF VRAZNQJC58 mL/min/1.66v8Zhehubjlhs low>=60The [facility] HealthComment on above:Performed By: #### MG, RENAL, URIC #### [facility] [address] [place] [address] Dr. Shayne RoldanGlucose [Mass/Vol]110 mg/dLCritically bruh83-387Xqo [facility] HealthComment on above:Performed By: #### MG, RENAL, URIC #### [facility] [address] [place] [address] Dr. Shayne RoldanPhosphate [Mass/Vol]2.3 mg/dLCritically low2.6-4.7The [facility] HealthComment on above:Performed By: #### MG, RENAL, URIC #### [facility] [address] [place] [address] Dr. Shayne RoldanPotassium [Moles/Vol]3.2 mmol/LCritically low3.5-5.1The [facility] HealthComment on above:Performed By: #### MG, RENAL, URIC #### [facility] [address] [place] [address] Dr. Shayne RoldanSodium [Moles/Vol]138 mmol/QKfobjt142-479Spv [facility] Comment on above:Performed By: #### MG, RENAL, URIC #### [facility] [address] [place] [address] Dr. Shayne RoldanUrea nitrogen [Mass/Vol]14.0 mg/dLNormal7.0-18.0The [facility] HealthComment on above:Performed By: #### MG, RENAL, URIC #### [facility] [address] [place] [address] Dr. Shayne RoldanPTDimitry INTACTon 26-27-6499LKP, Srbrju51 pg/eSFrfnib41-82Ppv [facility] HealthComment on above:Performed By: #### MG, RENAL, URIC #### [facility] [address] [place] [address] Dr. Shayne RoldanHEMOGRAM AND PLATELon 96-48-1251Fxvxkxfscx (Bld) [Volume fraction]39.8 %Mcmmus77.0-48.0The [facility] HealthComment on above:Performed By: #### MG, RENAL, URIC #### [facility] [address] [place] [address] Dr. Shayne RoldanHemoglobin (Bld) [Mass/Vol]13.4 g/fHImfeej66.0-16.0The [facility] HealthComment on above:Performed By: #### MG, RENAL, URIC #### [facility] [address] [place] [address] Dr. Shayne RoldanMCDimitry (RBC) [Entitic mass]30.5 azLlyjdy90.7-34.0The [facility] HealthComment on above:Performed By: #### MG, RENAL, URIC #### [facility] [address] [place] [address] Dr. Shayne Spears (RBC) [Mass/Vol]33.7 g/vUVfitqj48.9-35.2The [facility] HealthComment on above:Performed By: #### MG, RENAL, URIC #### [facility] [address] [place] [address] Dr. Shayne RoldanV (RBC) [Entitic vol]90.5 tHIeizno24.0-99.0The [facility] HealthComment on above:Performed By: #### MG, RENAL, URIC #### [facility] [address] [place] [address] Dr. Shayne RoldanPLT299 103/brZksohg031-148Qlg [facility] HealthComment on above: Performed By: #### MG, RENAL, URIC #### [facility] [address] [place] [address] Dr. Shayne RoldanRBC4.40 106/ulNormal4.20-5.40The [facility] HealthComascension macomb on above:Performed By: #### MG, RENAL, URIC #### [facility] [address] [place] [address] Dr. Shayne RoldanWBC8.8 103/ulNormal4.0-11.0The [facility] HealthComment on above: Performed By: #### MG, RENAL, URIC #### [facility] [address] [place] [address] Dr. Shayne RoldanMAGNESIUMon 12-49-0653Qgdmmjyxs [Mass/Vol]1.5 mg/dLCritically low 1.8-2.4The [facility] HealthComment on above:Performed By: #### MG, RENAL, URIC #### [facility] [address] [place] [address] Dr. Shayne RoldanRENAL FUNCTION PANELon 87-01-3814Puhjbbs [Mass/Vol]3.5 g/dLNormal 3.4-5.0The [facility] HealthComment on above:Performed By: #### MG, RENAL, URIC #### [facility] [address] [address] [address] Shayne RoldanCalcium [Mass/Vol]8.4 mg/dLCritically low8.5-10.1The [facility] Generalment on above:Performed By: #### MG, RENAL, URIC #### [facility] [address] [address] [address] Shayne RoldanChloride [Moles/Vol]101 mmol/YIpkrdi03-917Clj [facility] Comment on above:Performed By: #### MG, RENAL, URIC #### [facility] [address] [address] [address] Shayne RoldanCO2 [Moles/Vol]29.5 mmol/TOjwmzt21.0-32.0The [facility] Comment on above:Performed By: #### MG, RENAL, URIC #### [facility] [address] [place] [address] Dr. Shayne RoldanCreatinine [Mass/Vol]1.04 mg/dLCritically high0.55-1.02The [facility] HealthComment on above:Performed By: #### MG, RENAL, URIC #### [facility] [address] [address] [address] Bella ChangEGFR-AF INDIAN>60Normal>=60The [facility] HealthComment on above:Performed By: #### MG, RENAL, URIC #### [facility] [address] [place] [address] Dr. Bella ChangEGFR-NON AF CYKMSVYB18 mL/min/1.00k7Bnnezgbmsw low>=60The [facility] HealthComment on above:Performed By: #### MG, RENAL, URIC #### [facility] [address] [address] [address] Shayne RoldanGlucose [Mass/Vol]92 mg/vEGmupzm12-269NupWexner Medical Center Comment on above:Performed By: #### MG, RENAL, URIC #### [facility] [address] [address] [address] Shayne RoldanPhosphate [Mass/Vol]2.4 mg/dLCritically low2.6-4.7The [facility] HealthComment on above:Performed By: #### MG, RENAL, URIC #### [facility] [address] [address] [address] Shayne RoldanPotassium [Moles/Vol]2.8 mmol/LCritically low3.5-5.1The [facility] HealthComment on above:Performed By: #### MG, RENAL, URIC #### [facility] [address] [place] [address] Dr. Shayne Hilldium [Moles/Vol]137 mmol/LTkrmbm123-155QkdWexner Medical Center Comment on above:Performed By: #### MG, RENAL, URIC #### [facility] [address] [place] [address] Dr. Shayne Booker nitrogen [Mass/Vol]10.0 mg/dLNormal7.0-18.0The [facility] HealthComment on above:Performed By: #### MG, RENAL, URIC #### [facility] [address] [place] [address] Dr. Shayne Espinoza RANDOM W/MICROSCOPICon 01-34-1560KPUYMRIYCAILFPtcswxxzGNNH SEENWexner Medical CenterComment on above:Performed By: #### UAMIC #### [facility] [address] [place] [address] Dr. Shayne Elliottirubin Ql (U)NegativeNormalNEGATIVEWexner Medical Center Comment on above:Performed By: #### UAMIC #### [facility] [address] [place] [address] Dr. Shayne RoldanCASTNONE SEENNormalNONE SEENWexner Medical CenterComment on above:Performed By: #### UAMIC #### [facility] [address] [place] [address] Dr. Shayne Sierra (U)CLEARNormalCLEARThe [facility] HealthComment on above: Performed By: #### UAMIC #### [facility] [address] [place] [address] Dr. Shayne Au (U)LT. YELLOWNormalYELLOWThe [facility] HealthComment on above:Performed By: #### UAMIC #### [facility] [address] [address] [address] Shayne RoldanCrystals LM Nom (Urine sed)NONE SEENNormalNONE SEENWexner Medical CenterComment on above:Performed By: #### UAMIC #### [facility] [address] [address] [address] Bella ChangEpithelial cells LM Ql (Urine sed)FEWAbnormalNONE SEEN /RAREThe [facility] HealthComment on above:Performed By: #### UAMIC #### [facility] [address] [address] [address] Shayne RoldanGlucose Ql (U)NegativeNormalNEGATIVEWexner Medical CenterComment on above:Performed By: #### UAMIC #### [facility] [address] [place] [address] Dr. Shayne RoldanHemoglobin Ql (U)NegativeNormalNEGATIVEKettering Health [facility] on above:Performed By: #### UAMIC #### [facility] [address] [place] [address] Dr. Shayne RoldanKetones Ql (U)NegativeNormalNEGATIVEWexner Medical CenterComment on above:Performed By: #### UAMIC #### [facility] [address] [address] [address] Shayne RoldanLEUKOCYTESTRACEAbnormalNEGATIVEWexner Medical CenterComascension macomb on above:Performed By: #### UAMIC #### [facility] [address] [address] [address] Shayne RoldanMUCOUSNONE SEENNormalNONE SEENWexner Medical CenterComment on above:Performed By: #### UAMIC #### [facility] [address] [address] [address] Shayne RoldanNitrite Ql (U)NegativeNormalNEGATIVEWexner Medical CenterComment on above:Performed By: #### UAMIC #### [facility] [address] [address] [address] Shayne RoldanpH (U)6.0 [pH]Normal5-9The [facility] HealthComment on above: Performed By: #### UAMIC #### [facility] [address] [place] [address] Dr. Shayne DavisonCNONE SEENAbnormal0-2The [facility] HealthComment on above: Performed By: #### UAMIC #### [facility] [address] [place] [address] Dr. Shayne RoldanSPEC GRAVITY<=1.818Lsumtodi3.005-<=1.025The [facility] Comment on above:Performed By: #### UAMIC #### [facility] [address] [place] [address] Dr. Shayne Espinoza PROTEINNegativeNormalNEGATIVE/ TRACEThe [facility] Comment on above:Performed By: #### UAMIC #### [facility] [address] [place] [address] Dr. Shayne Dennybilinogen Qn (U)0.2 {Rogelio'U}/dLNormal0.2 - 1.0The [facility] HealthComment on above:Performed By: #### UAMIC #### [facility] [address] [place] [address] Dr. Shayne RoldanWBC5-10AbnormalNONE SEENThe [facility] HealthComment on above: Performed By: #### UAMIC #### [facility] [address] [place] [address] Dr. Shayne RoldanURIC ACID SERUMon 89-53-2875Bjszg [Mass/Vol]6.5 mg/dLCritically high2.6-6.0The [facility] HealthComment on above:Performed By: #### MG, RENAL, URIC #### [facility] [address] [place] [address] Dr. Shayne Wood T PROTEIN CREAT RATIOon 29-89-1307Cmfprpe (U) [Mass/Vol]4.8 mg/dLNormal<=12.0The [facility] HealthComment on above:Performed By: #### URTPCR #### [facility] [address] [address] [address] Shayne Wheeler PROT CREAT RAT0.09A[facility] Health SystemComment on above: Performed By: #### URTPCR #### [facility] [address] [place] [address] Dr. Shayne Wood CREAT52.65 mg/yXWlktig42.00-300.00[facility] Comment on above:Performed By: #### URTPCR #### [facility] [address] [place] [address] Dr. Shayne RoldanVITAMIN D 25 OHon 53-41-4126HDN D 25-OH38.9 ng/mLNormalThe [facility] HealthComment on above:Performed By: #### MG, RENAL, URIC #### [facility] [address] [place] [address] Dr. Shayne Vilchis [place]ANGES[place] BELOWAdena Health SystemComment on above: Result Comment: <20 ng/mL Vit D deficient 20 - <30 ng/mL Vit D insufficient 30 - 100 ng/mL Vit D sufficient >100 ng/mL Potential ToxicityPerformed By: #### MG, RENAL, URIC #### [facility] [address] [place] [address] Dr. Shayne RoldanIMMUNOGLOBULINS IGA/IGM/IGG/IGE QUANTITAon 07-12-2022 Immunoglobulin A, Qn, Wfeiu063 mg/bBEtehtm78-247Wub [facility] HealthComment on above:Result Comment: Performed at: CBPerformed By: #### MG, RENAL, URIC #### [facility] [address] [place] [address] Dr. Shayne RoldanImmunoglobulin E, Total32 IU/mLNormal6-495[facility] Comment on above:Result Comment: Performed at: BNPerformed By: #### MG, RENAL, URIC #### [facility] [address] [place] [address] Dr. Shayne RoldanImmunoglobulin G, Qn, Nwolk972 mg/xCOybtth586-1664Fcd [facility] HealthComment on above:Result Comment: Performed at: CBPerformed By: #### MG, RENAL, URIC #### [facility] [address] [place] [address] Dr. Shayne RoldanImmunoglobulin M, Qn, Serum75 mg/vIWvizfl77-715Oty [facility] HealthComment on above:Result Comment: Performed at: CBPerformed By: #### MG, RENAL, URIC #### [facility] [address] [place] [address] Dr. Shayne RoldanCBC AUTO DIFFon 00-64-6359UMME #0.1 103/ulNormal0.0-0.1The [facility] HealthComment on above:Performed By: #### MG, RENAL, URIC #### [facility] [address] [place] [address] Dr. Shayne RoldanBasophils/100 WBC (Bld)0.7 %Normal0.2-2.0[facility] Comment on above:Performed By: #### MG, RENAL, URIC #### [facility] [address] [place] [address] Dr. Shayne Irizarry #0.4 103/ulNormal0.0-0.7The [facility] HealthComment on above: Performed By: #### MG, RENAL, URIC #### [facility] [address] [place] [address] Dr. Shayne Peñaosinophils/100 WBC (Bld)4.4 %Normal0.9-7.0The [facility] Comment on above:Performed By: #### MG, RENAL, URIC #### [facility] [address] [place] [address] Dr. Shayne Peñarythrocyte distribution width (RBC) [Ratio]12.6 %Geaigy97.0-15.0 The [facility] HealthComment on above:Performed By: #### MG, RENAL, URIC #### [facility] [address] [place] [address] Dr. Shayne RoldanHematocrit (Bld) [Volume fraction]40.2 %Ecuftv69.0-48.0The [facility] HealthComment on above:Performed By: #### MG, RENAL, URIC #### [facility] [address] [place] [address] Dr. Shayne RoldanHemoglobin (Bld) [Mass/Vol]13.6 g/kWVbyxtb23.0-16.0The [facility] HealthComment on above:Performed By: #### MG, RENAL, URIC #### [facility] [address] [place] [address] Dr. Shayne Sy #0.07 10e3/ulCritically high0.00-0.03The [facility] Comment on above:Performed By: #### MG, RENAL, URIC #### [facility] [address] [place] [address] Dr. Shayne Sy %0.8 %Critically high0.0-0.5The [facility] HealthComment on above:Performed By: #### MG, RENAL, URIC #### [facility] [address] [place] [address] Dr. Shayne Rojo #2.3 103/ulNormal1.2-3.8The [facility] HealthComment on above:Performed By: #### MG, RENAL, URIC #### [facility] [address] [place] [address] Dr. Shayne Hanleyhocytes/100 WBC (Bld)24.7 %Shqifr71.5-60.0The [facility] HealthComment on above:Performed By: #### MG, RENAL, URIC #### [facility] [address] [place] [address] Dr. Shayne MauroUAL DIFF REQNONormalThe [facility] HealthComment on above: Performed By: #### MG, RENAL, URIC #### [facility] [address] [place] [address] Dr. Shayne Higgins (RBC) [Entitic mass]30.7 dtCciuac79.7-34.0The [facility] HealthComment on above:Performed By: #### MG, RENAL, URIC #### [facility] [address] [place] [address] Dr. Shayne SpearsHC (RBC) [Mass/Vol]33.8 g/bVXcceyw28.9-35.2The [facility] HealthComment on above:Performed By: #### MG, RENAL, URIC #### [facility] [address] [place] [address] Dr. Shayne Ashley (RBC) [Entitic vol]90.7 sFTwdrof09.0-99.0The [facility] HealthComment on above:Performed By: #### MG, RENAL, URIC #### [facility] [address] [place] [address] Dr. Shayne Germain #0.7 103/ulNormal0.3-0.8The [facility] HealthComment on above:Performed By: #### MG, RENAL, URIC #### [facility] [address] [place] [address] Dr. Shayne Haocytes/100 WBC (Bld)7.7 %Normal1.7-12.0The [facility] Comment on above:Performed By: #### MG, RENAL, URIC #### [facility] [address] [place] [address] Dr. Shayne Brock #5.7 103/ulNormal1.4-6.5The [facility] HealthComment on above:Performed By: #### MG, RENAL, URIC #### [facility] [address] [place] [address] Dr. Shayne Servinutrophils/100 WBC (Bld)61.7 %Uakuyx16.0-75.0The [facility] HealthComment on above:Performed By: #### MG, RENAL, URIC #### [facility] [address] [place] [address] Dr. Shayne Berry mean volume (Bld) [Entitic vol]8.8 fLCritically low 9.5-13.5The [facility] HealthComment on above:Performed By: #### MG, RENAL, URIC #### [facility] [address] [place] [address] Dr. Shayne RoldanPLT279 103/tuNveera086-975Rhk [facility] HealthComment on above: Performed By: #### MG, RENAL, URIC #### [facility] [address], [place] [address] Dr. Shayne RoldanRBC4.43 106/ulNormal4.20-5.40The [facility] on above:Performed By: #### MG, RENAL, URIC #### [facility] [address] [place], [place] [address] Dr. Shayne RoldanWBC9.1 103/ulNormal4.0-11.0The [facility] HealthComment on above: Performed By: #### MG, RENAL, URIC #### [facility] [address] [place], [place] [address] Dr. Shayne RoldanCovid-19 PCR ([facility])on 06-82-4029OIPW-CoV-2 (COVID-19) RNA KAYLEE+probe Ql (Unsp spec)Not detectedNormalNOT DETECTEDThe [facility] Comment on above:Result Comment: This test is not yet approved or cleared by the [place] FDA. When there are no FDA-approved or cleared tests available, and other criteria are met, FDA can make tests available under an emergency access mechanism called an Emergency Use Authorization (EUA). The EUA for this test is supported by the Record Clerk of Health and Human Service's (HHS's) declaration that circumstances exist to justify the emergency use of in vitro diagnostics for the detection and/or diagnosis of the virus that causes COVID- 19. This EUA will remain in effect (meaning [...] of clinical signs and symptoms consistent with SARS-CoV-2.Performed By: #### MG, RENAL, URIC #### [facility] [address] [place], [place] [address] Dr. Shayne RoldanXR CHEST 2 Von 68-20-5632IU CHEST 2 VEXAM: CHEST 2 VIEWS HISTORY: Disorder of respiratory [...] Electronically authenticated by: NARDA LONDONO Date: 2022-06-08 19:58NormSouthview Medical Centere [facility] HealthCovid-19 PCR ([facility])on 94-28-3304OUYC-CoV-2 (COVID-19) RNA KAYLEE+probe Ql (Unsp spec)Not detectedNormalNOT DETECTEDThe [facility] Comment on above:Result Comment: This test is not yet approved or cleared by the [place] FDA. When there are no FDA-approved or cleared tests available, and other criteria are met, FDA can make tests available under an emergency access mechanism called an Emergency Use Authorization (EUA). The EUA for this test is supported by the Record Clerk of Health and Human Service's (HHS's) declaration that circumstances exist to justify the emergency use of in vitro diagnostics for the detection and/or diagnosis of the virus that causes COVID- 19. This EUA will remain in effect (meaning [...] of clinical signs and symptoms consistent with SARS-CoV-2.Performed By: #### CVDTBH #### [facility] [address] [place] [address] Dr. Shayne Chaney [id number] [facility] Department of Radiology [address] [place] [address] Patient Name: DIANA CHAMPION : [...] characteristics. Electronically signed: Luzma Marks. Transcribed by: [email or web address], User Resident: Electronically Signed by: LUZMA MARKS @ 03/02/2022 01:07 [facility] TroyCOLI[facility]IS 2 Son [id number] 2 [facility]ni[facility] Department of Radiology [address] [place] [id number] Patient Name: DIANA CHAMPION : 1955 Sex: F Age: Race: White Pt. Location: Patient Status: D Ordered Date: 02/24/2022 1:25:00 PM Completed Date: 02/24/2022 01:44 PM Requesting Provider: CINDA ANTONIO Attending Provider: Report Copy To: Signs & Symptoms: M43.10 Spondylolisthesis, site unspecified I10 History: Comments: Views (X-RAY, SCOLIOSIS): PA, Lateral evaluate Exam: SCOLIOSIS 2 [facility] Scoliosis. Worsening pain. Frontal and lateral thoracolumbar spine IMPRESSION: 1. Diffuse disc disease and facet arthritis. Right convex mid lumbar curvature measuring 16 degrees. Interbody fusion hardware lower lumbar spine. Electronically signed: Hguo Lynn. Transcribed by: [email or web address], User Resident: Electronically Signed by: HUGO LYNN @ 02/26/2022 11:07 [facility] HospitalComment on above:Order Comment: Views (X-RAY, SCOLIOSIS): PA, Lateral evaluateCT LUMBAR SPINE W CONTRASTon [id number] LUMBAR SPINE W CONTRASTUnDayton Children's Hospital Department of Radiology [address] [place] [id number] Patient Name: DIANA CHAMPION : 1955 [...] L1-2. Electronically signed: Gaurang Hess. Transcribed by: [email or web address], User Resident: Electronically Signed by: GAURANG HESS @ 01/26/2022 08:58 AMNormalThe [facility] DublinComment on above:Order Comment: , CT MYELOGRAM>PAPER WORK IN CHARTLUMBAR MYELOGRAMon 13-79-3492WWEJAW MYELOGRAM [facility] Department of Radiology [address] [place] [phone] Patient Name: DIANA CHAMPION : 1955 Sex: F Age: Race: White Pt. Location: Patient Status: O Ordered Date: 01/09/2022 9:00:00 AM Completed Date: 01/24/2022 02:37 PM Requesting Provider: JOO LINN Attending Provider: JOO LINN Report Copy To: UNKNOWN, PHYSICIAN Signs & Symptoms: M54.16 Radiculopathy, lumbar region I10 History: [place] Is patient on thinners? 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 Consent was obtained. Timeout: [place] protocol timeout verification performed. PROCEDURE: Estimated blood [...] report. Electronically signed: Greg Mcmahan. Transcribed by: [email or web address], User Resident: DEBBIE JI Electronically Signed by: GREG MCMAHAN @ 01/24/2022 04:07 PM I personally read this/these film(s) with this [facility] CenterComment on above:Order Comment: , CT MYELOGRAM> PAPER WORK SCANNED IN CHART , CT MYELOGRAM> PAPER WORK SCANNEDIN CHART , , , Ordering Provider - JOO LINN MD , HIP LEFT 1 OR 2 VWS WITH PELVIS on 47-25-3452WKX LEFT 1 OR 2 VWS WITH PELVISUnDayton Children's Hospital Department of Radiology [address] [place] [id number] Patient Name: DIANA CHAMPION : 1955 Sex: F Age: Race: White Pt. Location: Patient Status: D Ordered Date: 12/21/2021 10:45:00 AM Completed Date: 01/06/2022 01:24 PM Requesting Provider: JOO LINN Attending Provider: JOO LINN Report Copy To: Signs & Symptoms: Z96.642 Presence of left artificial hip joint I10 History: [place] Comments: Evaluate Exam: HIP LEFT 1 OR 2 VWS WITH PELVIS HIP LEFT 1 OR 2 VWS WITH PELVIS HISTORY: Hip replacement, follow-up. COMPARISON: None. IMPRESSION: 1. Redemonstrated left hip prosthesis without visible complication. 2. Advanced right hip arthritis without significant change with advanced joint space narrowing. Unchanged lumbosacral fusion hardware. Electronically signed: Joe Matthew. Transcribed by: [email or web address], User Resident: Electronically Signed by: JOE MATTHEW @ 01/09/2022 04:45 [facility] HospitalComment on above:Order Comment: Evaluate Vital Signs Date TimeVital SignValuePerforming KpiusnxomJssgeewn65-92-5812 08:50-0400Body iavmaz860.56 cmBrittany Reese [employer] Work Phone: [phone] [place], [place] 78[address]210-13-2025 08:50-0400 Body mass index (BMI) [Ratio]39.4 kg/k1Jyqlalmj Reese [employer] Work Phone: 1([phone])[address]10-13-2025 08:50-0400 Body ofkmbofsupz16.1 [degF]Aida Reese [employer] Work Phone: [phone])[address]10-13-2025 08:50-0400 Body njwadm893.38 kgBrittany Reese [employer] Work Phone: [phone] [place], [place] 78[address]210-13-2025 08:50-0400 Diastolic blood aigydwwi89 mm[Hg]Aida Reese [employer] Work Phone: [phone] [place], [place] 78[address]210-13-2025 08:50-0400 Heart rate82 /minBrittany Reese [employer] Work Phone: [phone] [place], [place] 78[address]210-13-2025 08:50-0400 Inhaled oxygen flow rate3 L/minBrittany Reese [employer] Work Phone: 1([phone])668-[address] [place], [place] 78[address]210-13-2025 08:50-0400 Respiratory rate20 /minBrittany Reese [employer] Work Phone: 1([phone])949-[address] [place], [place] 78[address]210-13-2025 08:50-0400 SaO2% (BldA) [Mass fraction]92 %Aida Reese [employer] Work Phone: [phone] [place], [place] 78[address]210-13-2025 08:50-0400 Systolic blood fbixjurk317 mm[Hg]Aida Reese [employer] Work Phone: [phone] [place], [place] 78[address]209-29-2025 10:11-0400 Body otgwfo170.56 cmBrittany Reese [employer] Work Phone: [phone]-[facility]09-29-2025 10:11-0400 Body mass index (BMI) [Ratio]39.3 kg/g9Xhirpcbh Reese [employer] Work Phone: [phone]09-29-2025 10:11-0400 Body faxgyxneuse29.8 [degF]Aida Reese [employer] Work Phone: [phone])[address]09-29-2025 10:11-0400 Body fixmvv354.87 kgBrittany Reese [employer] Work Phone: 1(043)878-[address] [place], [place] 78[address]209-29-2025 10:11-0400 Diastolic blood ygbebyca42 mm[Hg]Aida Reese [employer] Work Phone: [phone] [place], [place] 78[address]209-29-2025 10:11-0400 Heart rate93 /minBrittany Reese [employer] Work Phone: [phone] [address]09-29-2025 10:11-0400 Inhaled oxygen flow rate3 L/minBrittany Reese [employer] Work Phone: 1([phone])328-[address] [place], [place] 78[address]209-29-2025 10:11-0400 Respiratory rate18 /minBrittany Reese [employer] Work Phone: [phone] [place], [place] 78[address]209-29-2025 10:11-0400 SaO2% (BldA) [Mass fraction]93 %Aida Reese [employer] Work Phone: 1(241)518-[address] [place], [place] 78[address]209-29-2025 10:11-0400 Systolic blood cvuojmwr965 mm[Hg]Aida Reese [employer] Work Phone: [phone]-[facility]09-11-2025 09:08-0400 Body faqimk748.56 cmBrittany Reese [employer] Work Phone: [phone]-[facility]09-11-2025 09:08-0400 Body mass index (BMI) [Ratio]40.1 kg/q0Goqmrxtz Reese [employer] Work Phone: [phone])[address]09-11-2025 09:08-0400 Body zjnjjfelygx77.1 [degF]Aida Reese [employer] Work Phone: [phone]09-11-2025 09:08-0400 Body .25 kgBrittany Reese [employer] Work Phone: [phone]-[facility]09-11-2025 09:08-0400 Diastolic blood hbqxneox24 mm[Hg]Aida Reese [employer] Work Phone: 1([phone] [place], [place] 78[address]209-11-2025 09:08-0400 Heart rate74 /minBrittany Reese [employer] Work Phone: [phone]09-11-2025 09:08-0400 Inhaled oxygen flow rate3 L/minBrittany Reese [employer] Work Phone: [phone]-[facility] CenterN[facility]09-11-2025 09:08-0400 Respiratory rate24 /minBrittany Reese [employer] Work Phone: 1(020)882-[address] [place], [place] 78[address]209-11-2025 09:08-0400 SaO2% (BldA) [Mass fraction]95 %Aida Reese [employer] Work Phone: [phone]-[facility]09-11-2025 09:08-0400 Systolic blood znyhqqlw566 mm[Hg]Aida Reese [employer] Work Phone: [facility]07-14-2025 08:43-0400 Body mass index (BMI) [Ratio]40.58 kg/m2Lisa Ferdinandholz [employer] Work Phone: [facility] HospitalJxtrfzbvsk00-10-7594 08:43-0400Body temperature 98.49 [degF]Kaylene Streetersuryz [employer] Work Phone: [facility] HospitalEpnmdzpxcp90-88-0729 08:43-0400Body .23 kgLisa Brianhholz [employer] Work Phone: [facility] HospitalLknwvdqldq11-49-9190 08:43-0400Diastolic blood kdinjlnr47 mm[Hg]Kaylene Ferdinandholz [employer] Work Phone: [facility] HospitalRbikbjfexs41-60-6949 08:43-0400Heart rate74 /min Kaylene Ferdinandholz [employer] Work Phone: [facility] HospitalCsygjpiunb16-33-0717 08:43-0400Respiratory rate22 /minLisa Ferdinandholz [employer] Work Phone: [facility] HospitalVukgbkhuxs12-28-4814 08:43-6275KpV9% (BldA) [Mass fraction]94 %Kaylene Ferdinandholz [employer] Work Phone: [facility] HospitalDhyvsqjfdx76-76-9984 08:43-0400Systolic blood jstydjit105 mm[Hg]Kaylene Ferdinandholz [employer] Work Phone: [facility] HospitalRcjhplyqic75-54-3639 11:03-0400Body mass index (BMI) [Ratio]41.2 kg/m2Lisa Brianhholz [employer] Work Phone: [facility] HospitalIuvqwehmkm43-82-8034 11:03-0400Body temperature 98.2 [degF]Kaylene Ferdinandholz [employer] Work Phone: [facility] HospitalCpadnlflpc16-10-2004 11:03-0400Body zeeyam423.86 kgLisa Brianhholz [employer] Work Phone: [facility] HospitalFxsviozaft27-93-9838 11:03-0400Diastolic blood wnupxdzl82 mm[Hg]Kaylene Rene [employer] Work Phone: [facility] HospitalWhnirjqmsj71-12-5238 11:03-0400Heart rate73 /min Kaylene Owenz [employer] Work Phone: [facility] HospitalQmcjnusrxy60-10-3781 11:03-0400Respiratory rate22 /minLisa Rene [employer] Work Phone: [facility] HospitalFjzpbqzarn76-98-5200 11:03-8275NyM1% (BldA) [Mass fraction]93 %Kaylene Owenz [employer] Work Phone: [facility] HospitalOpgktdzijm56-11-0841 11:03-0400Systolic blood zwcftcox711 mm[Hg]Kaylene Owenz [employer] Work Phone: [facility] HospitalJlcaykzynq40-79-8602 09:57-0400Body temperature 98.06 [degF]MAG GOMEZRY [facility]05-19-2025 09:57-0400Diastolic blood iopkvuiy46 mm[Hg]MAG JOSE ALEJANDRO [facility]05-19-2025 09:57-0400Respiratory rate16 /minJENNSHAUNNA JOSE ALEJANDRO [facility]05-19-2025 09:57-0400Systolic blood xalnewdv651 mm[Hg]MAG JOSE ALEJANDRO [facility]04-14-2025 08:31-0400Body fkcxpimvffh08.8 [degF]Kaylene Owenz [employer] Work Phone: [facility] HospitalNtdvhgznsf84-12-2206 08:31-0400Diastolic blood bflgdojz97 mm[Hg]Kaylene Owenz [employer] Work Phone: [facility] HospitalYgmsearwti70-32-5048 08:31-0400Heart rate85 /min Kaylene Ferdinandholz [employer] Work Phone: [facility] HospitalUuwxmyckse92-28-4981 08:31-0400Respiratory rate24 /minLisa Aichholz [employer] Work Phone: [facility] HospitalCjaecqzzot91-69-6918 08:31-2910MgZ2% (BldA) [Mass fraction]90 %Kaylene Ferdinandholz [employer] Work Phone: [facility] HospitalRzrpgpdzjc34-67-9702 08:31-0400Systolic blood fcyocrfx183 mm[Hg]Kaylene Brianhholz [employer] Work Phone: [facility] HospitalYptzipwmfq34-11-7867 09:50-0400Body kwfuncgzgtq64 [degF]Kaylene Ferdinandholz [employer] Work Phone: [facility] HospitalZpkxrkreaw16-18-6830 09:50-0400Diastolic blood bzulqjog34 mm[Hg]Kaylene Brianhholz [employer] Work Phone: [facility] HospitalSwlbnlgxmm27-29-1795 09:50-0400Heart rate68 /min Kaylene Ferdinandholz [employer] Work Phone: [facility] HospitalXqdcvsfxzt92-89-6768 09:50-0400Respiratory rate26 /minLisa Ferdinandholz [employer] Work Phone: [facility] HospitalGssklxgeud00-78-2775 09:50-0444VfR5% (BldA) [Mass fraction]93 %Kaylene Ferdinandholz [employer] Work Phone: [facility] HospitalKpmubwkiri14-75-2886 09:50-0400Systolic blood conyxsrt794 mm[Hg]Kaylene Aichholz [employer] Work Phone: [facility] HospitalIeemxqlpgv29-24-9523 14:54-0500Body mass index (BMI) [Ratio]40.2 kg/m2Lisa Brianhholz [employer] Work Phone: [facility] HospitalUmrnzkhwwy47-79-1138 14:54-0500Body temperature 99.61 [degF]Kaylene López [employer] Work Phone: [facility] HospitalHgfafkchwu69-49-6211 14:54-0500Body .23 kgKaylene López [employer] Work Phone: [facility] HospitalElskhwkxpd22-77-3118 14:54-0500Diastolic blood bdamoqeg59 mm[Hg]Kaylene López [employer] Work Phone: [facility] HospitalTcydutahow89-15-4151 14:54-0500Heart rate78 /min Kaylene López [employer] Work Phone: [facility] HospitalIplgbtcied34-91-5955 14:54-0500Respiratory rate26 /minKaylene López [employer] Work Phone: [facility] HospitalJffszlsiec58-93-6299 14:54-9251JfT3% (BldA) [Mass fraction]91 %Kaylene López [employer] Work Phone: [facility] HospitalGqbzevhync49-45-1179 14:54-0500Systolic blood aixtyxhf042 mm[Hg]Kaylene López [employer] Work Phone: [facility] HospitalQasbworenu22-26-5921 13:08-0500Body oxgnkx588.6 cmEstrellitakaushal BrannonReese [employer] Work Phone: [facility] HospitalGyhycauiqy09-56-7608 13:08-0500Body mass index (BMI) [Ratio]40.51 kg/l7Cnaweeot Reese [employer] Work Phone: [facility] HospitalZeqkjnmoxk56-81-9792 13:08-0500Body temperature 97.9 [degF]Aida Reese [employer] Work Phone: [facility] HospitalUzipepidzk49-24-4532 13:08-0500Body .05 kgBrbhavana Reese [employer] Work Phone: [facility] HospitalXdgaqcqcfs78-58-5042 13:08-0500Diastolic blood ovygngxx04 mm[Hg]Aida Reese [employer] Work Phone: [facility] HospitalQkcrjnrebr68-07-4459 13:08-0500Heart rate79 /min Aida Reese [employer] Work Phone: [facility] HospitalAyzfxxphqx60-99-2884 13:08-0500Respiratory rate20 /minBrittany Reese [employer] AND [employer]ATOR [employer] Work Phone: [facility] HospitalIcboukotas99-55-3509 13:08-6043VuR0% (BldA) [Mass fraction]96 %Aida Reese [employer] Work Phone: [facility] HospitalCjzkkvudeb50-80-9048 13:08-0500Systolic blood bmlmpenw739 mm[Hg]Aida Reese [employer] Work Phone: 1(021)43-[address] [place], [place] [address]Gxbqlwoznx39-31-6709 10:24-0500Body mass index (BMI) [Ratio]40.75 kg/f8Lbhizbkx Reese [employer] Work Phone: 1(308)040-[address] [place], [place] [address]Kftxehpwve43-10-8790 10:24-0500Body temperature 98.71 [degF]Aida Reese [employer] Work Phone: [facility] HospitalIgrqjbhlqk58-29-9544 10:24-0500Body mqvuxu113.68 kgBrbhavana Reese [employer]ATOR [employer] Work Phone: [facility] HospitalUxvshraeqf48-02-4278 10:24-0500Diastolic blood guaqqzch56 mm[Hg]Aida Reese [employer] Work Phone: 1(567)768-[address] [place], [place] [address]Ttwtpsbktc56-24-2707 10:24-0500Heart rate68 /min Aida Reese [employer] Work Phone: [facility] HospitalYyxhhnyfsp96-73-0063 10:24-0500Respiratory rate18 /minBrittany Reese [employer]OR AND [employer]ATOR [employer] Work Phone: [facility] HospitalHrwmlrqitq13-98-8338 10:24-4252VoY5% (BldA) [Mass fraction]92 %Aida Reese [employer] Work Phone: 1(419)547-[address] [place], [place] [address]Ejhzrzcong27-26-6963 10:24-0500Systolic blood amvevagn783 mm[Hg]Aida Reese [employer] Work Phone: [facility] HospitalUffiqfqyos41-88-1838 14:29-0500Blood Pressure LocationJENNIFER JOSE ALEJANDRO [facility]12-10-2024 14:29-0500Diastolic blood foijbpbj27 mm[Hg]MAG JOSE ALEJANDRO [facility]12-10-2024 14:29-0500Heart rate64 /minJENNIFER JOSE ALEJANDRO [facility]12-10-2024 14:29-0500Respiratory rate20 /minJENNIFER JOSE ALEJANDRO [facility]12-10-2024 14:29-0500Systolic blood btzvsazs510 mm[Hg]MAG JOSE ALEJANDRO [facility]12-02-2024 14:22-0500Body ydzhgr179.6 cmBrittany Reese [employer] Work Phone: [facility] HospitalSyuhkdvjru62-45-7593 14:22-0500Body mass index (BMI) [Ratio]40.85 kg/l9Cmocmnur Reese [employer] Work Phone: [facility] HospitalCbfyleratl14-29-6986 14:22-0500Body hiddxd838.96 kgBrittany Reese [employer] Work Phone: [facility] HospitalXsdtszcxob70-26-3553 14:22-0500Diastolic blood jcfglziu36 mm[Hg]Aida Reese [employer] Work Phone: [facility] HospitalIivuxomfzk47-61-5033 14:22-0500Heart rate64 /min Aida Reese [employer] Work Phone: [facility] HospitalCkwainipqg63-89-4695 14:22-0500Respiratory rate18 /minAida Negronk [employer]OR [employer]ATOR [employer] Work Phone: [facility] HospitalKciducdxww25-85-9312 14:22-9657ScN8% (BldA) [Mass fraction]93 %Aida Negronk [employer] Work Phone: [facility] HospitalEfbgoccqtg90-85-4443 14:22-0500Systolic blood alyxunjo305 mm[Hg]Aida Negronk [employer]OR [employer] Work Phone: [facility] HospitalGutknfeddz00-57-9932 12:53-0400Body xpegqs958.56 cmAida Negronk [employer]OR AND [employer]ATOR [employer]-C Work Phone: [phone]10-31-2024 12:53-0400 Body zwfksu239.32 kgBrbhavana Negronk [employer]OR [employer]ATOR [employer]-C Work Phone: [phone]10-14-2024 11:41-0400 Body mass index (BMI) [Ratio]40.34 kg/i4FkczueraAida Negronk [employer]ATOR [employer] Work Phone: [facility] HospitalWxvldczfwq04-13-0583 11:41-0400Body temperature 97.59 [degF]Aida Negronk [employer] Work Phone: [facility] HospitalHxmkyiguca53-85-4124 11:41-0400Body hatuku482.59 kgAida Negronk [employer]OR AND [employer]ATOR [employer] Work Phone: [facility] HospitalSbygehglws65-26-0238 11:41-0400Diastolic blood shfynntc64 mm[Hg]Aida Negronk [employer]OR AND [employer] Work Phone: [facility] HospitalDvwplvlcla10-07-9929 11:41-0400Heart rate57 /min Aida Negronk [employer] Work Phone: [facility] HospitalFfgtuucowt92-88-9130 11:41-5861IqV6% (BldA) [Mass fraction]90 %Aida Reese [employer] Work Phone: [facility] HospitalVrffacwgii05-90-9074 11:41-0400Systolic blood trbennny444 mm[Hg]Aida Reese [employer]OR AND [employer] Work Phone: [facility] HospitalLawliqlqee31-49-0733 08:25-0400Body .6 cmAida Rubiopatrick [employer]OR [employer]ATOR [employer] Work Phone: [facility] HospitalSkrakiwkbm04-54-4842 08:25-0400Body mass index (BMI) [Ratio]41.02 kg/i2Ahbvmund Reese [employer] Work Phone: [facility] HospitalBvlgmkmlvv68-55-2044 08:25-0400Body temperature 98.1 [degF]Aida Reese [employer]OR AND [employer] Work Phone: [facility] HospitalCzrixspnjk43-94-0923 08:25-0400Body .41 kgBrbhavana BrannonReese MOTOR AND [employer]ATOR [employer] Work Phone: [facility] HospitalWxeurcsbkj82-48-9048 08:25-0400Diastolic blood ijjzlkrx42 mm[Hg]Aida Reese [employer]OR AND [employer] Work Phone: [facility] HospitalKqzyhexrwt18-92-1676 08:25-0400Heart rate83 /min Aida Brannonzpatrick [employer]OR [employer]ATOR [employer] Work Phone: noVA HealthcareComment on above:94% U153-08-1463 08:25-0400Systolic blood jnqejtqm945 mm[Hg]Aida Reese [employer]OR AND [employer] Work Phone: [facility] HospitalOrcphzdpyu49-31-8504 10:30-0400Body .1 cmSteven Roshon Work Phone: [facility]05-09-2024 10:30-0400 Body mass index (BMI) [Ratio]39 kg/t7Krayle Roshon Work Phone: [facility]05-09-2024 10:30-0400 Body ewtrdimhluk76.4 [degF]Steph Collier Work Phone: [phone]05-09-2024 10:30-0400 Body ipgtxj530.36 kgStdeanna Collier Work Phone: [phone]05-09-2024 10:30-0400 Diastolic blood ijfoehzu49 mm[Hg]Steph Collier Work Phone: 1(672)531-[address] [place], [place] 6094105-09-2024 10:30-0400 Heart rate77 /Nellieteven Roshon Work Phone: [phone]05-09-2024 10:30-0400 Inhaled oxygen flow rate3 L/cVidyateven Roshon Work Phone: 1(546)[address]05-09-2024 10:30-0400 Respiratory rate20 /cVidyatamera Galindohon Work Phone: 4(101)761-[address] [place], [place] 6094105-09-2024 10:30-0400 SaO2% (BldA) [Mass fraction]92 %Steph Collier Work Phone: 0(910)245-[address] [place], [place] 6094105-09-2024 10:30-0400 Systolic blood vlpfyaek808 mm[Hg]Steph Collier Work Phone: [phone]10-12-2023 09:20-0400 Body .1 cmAbdul Joana Other [facility] [employer] Other 10-12-2023 09:20-0400Body mass index (BMI) [Ratio]38.1 kg/d7Jojkw Joana Other [facility] [employer] Other 10-12-2023 09:20-0400Body btkcurwbzeh40.8 [degF]Herberth Joana Other [facility] [employer] Other 10-12-2023 09:20-0400Body .87 kgAbdul Joana Other [employer] Other 10-12-2023 09:20-0400Diastolic blood dhkdclio31 mm[Hg] Herberth Joana Other [employer] Other 10-12-2023 09:20-0400Respiratory rate18 /minAbdul Joana Other [employer] Other 10-12-2023 09:20-8881ZzZ1% (BldA) [Mass fraction]94 % Herberth Joana Other [employer] Other 10-12-2023 09:20-0400Systolic blood jciambok985 mm[Hg] Herberth Joana Other [employer] Other 04-27-2023 10:00-0400Body phnlec324.1 cmAbdul Joana Other [employer] Other 04-27-2023 10:00-0400Body mass index (BMI) [Ratio] 37.29 kg/f2Bxypc Joana Other [employer] Other 04-27-2023 10:00-0400Body rruimbwxxiw86.9 [degF]Herberth Joana Other [employer] Other 04-27-2023 10:00-0400Body .65 kgAbdul Joana Other [employer] Other 04-27-2023 10:00-0400Diastolic blood scrdbjoz54 mm[Hg] Herberth Joana Other [facility] [employer] Other 04-27-2023 10:00-0400Respiratory rate20 /minAbdul Joana Other [facility] [employer] Other 04-27-2023 10:00-0100JcL3% (BldA) [Mass fraction]96 % Herberth Joana Other [facility] [employer] Other 04-27-2023 10:00-0400Systolic blood bxjcfoln583 mm[Hg] Herberth Joana Other [facility] [employer] Other 02-02-2023 09:30-0500Diastolic blood xldxwqsa68 mm[Hg] MD Shaikh Ohara Work Phone: [facility]02-02-2023 09:30-0500 Heart rate55 /minMD Shaikh Ohara Work Phone: [facility]02-02-2023 09:30-0500 Respiratory rate16 /minMD Shaikh Ohara Work Phone: [facility]02-02-2023 09:30-0500 SaO2% (BldA) [Mass fraction]96 %MD Shaikh Ohara Work Phone: [facility]02-02-2023 09:30-0500 Systolic blood juwsbpss856 mm[Hg]MD Shaikh Ohara Work Phone: 1([phone]-[facility]02-02-2023 06:54-0500 Body pfulxu290.56 cmMD Shaikh Ohara Work Phone: [facility]02-02-2023 06:54-0500 Body lnewdqlqofc80.2 [degF]MD Shaikh Ohara Work Phone: [facility]02-02-2023 06:54-0500 Body mktiza045.32 kgMD Shaikh Lev Work Phone: [facility]10-04-2022 11:00-0400 Body kxhyvz141.1 cmAbdul Joana Other [employer] Other 481606-21-1532 11:00-0400Body mass index (BMI) [Ratio] 37.87 kg/w7Kndra Joana Other [employer] Other 10-04-2022 11:00-0400Body twmznokrfdr68.2 [degF]Herberth Joana Other [employer] Other 211161-47-5095 11:00-0400Body zbsecu086.24 kgAbdul Joana Other [employer] Other 10-04-2022 11:00-0400Diastolic blood lcdnvpda52 mm[Hg] Herberth Joana Other [employer] Other 10-04-2022 11:00-0400Respiratory rate20 /minAbdul Joana Other [employer] Other 10-04-2022 11:00-7975YtD0% (BldA) [Mass fraction]95 % Herberth Joana Other [employer] Other 10-04-2022 11:00-0400Systolic blood dvgfyatq855 mm[Hg] Herberth Joana Other [employer] Other 01-12-2022 10:40-0500Body .1 cmAbdul Joana Other [employer] Other 01-12-2022 10:40-0500Body mass index (BMI) [Ratio] 37.97 kg/i1Qseoj Joana Other [employer] Other 01-12-2022 10:40-0500Body unryscrnieb83.8 [degF]Herberth Joana Other [facility] Other 01-12-2022 10:40-0500Body fcroqu489.51 kgAbdul Joana Other [facility] Other 01-12-2022 10:40-0500Diastolic blood vshbpbla38 mm[Hg] Herberth Joana Other [facility] [employer] Other 01-12-2022 10:40-0500Respiratory rate18 /minAbdul Joana Other [facility] [employer] Other 01-12-2022 10:40-7313NaP8% (BldA) [Mass fraction]94 % Herberth Joana Other [facility] Other 01-12-2022 10:40-0500Systolic blood gzaqfvqa522 mm[Hg] Herberth Joana Other [employer] Other 10-25-2021 13:15-0400Body vbobea625.1 cmAmber Ginty Other [facility] [employer] Other 10-25-2021 13:15-0400Body mass index (BMI) [Ratio] 36.61 kg/o4Byfcqbeth Hurd Other [employer] Other 10-25-2021 13:15-0400Body oyrsxzjigrz87.7 [degF]Rena Hurd Other [employer] Other 10-25-2021 13:15-0400Body kumciu18.79 kgAmber Vannessa Other [employer] Other 10-25-2021 13:15-7589CoW0% (BldA) [Mass fraction]90 % Rena Hurd Other [employer] Other Encounters Encounter DateEncounter TypeCare ProviderFacilityStart: 05-82-0125qprjzbdbyk Amalia TannaFacility:[facility] [place]vueStart: 08-18-2025 End: 26-87-6823noddttwwupHlmvjhmg N Reese [employer]-C Work Phone: [facility] Work Phone: Start: 08-18-2025 End: 82-61-5346Jwfgvfe encounter procedureLisa Paolo López [employer]-C-[facility] [place] Work Phone: Start: 08-04-2025 End: 50-77-5185Cxjnaivf Result EncounterLisa Rene [employer] Work Phone: n[facility] External Department UnsolicitedStart: 08-04-2025 End: 47-89-7417Tymihhgi Result EncounterLisa Rene [employer] Work Phone: [facility] External Department UnsolicitedStart: 08-04-2025 End: 00-58-0256tagkredrseSioynesc N Reese [employer]-C Work Phone: [facility] Work Phone: start: 08-04-2025 End: 28-32-7433Daanbhb encounter procedureKaylene BARBOSAC-[facility] [place] Work Phone: Start: 07-22-2025 End: 95-39-4000ttnticwcitAedvhz TannaFacility:[facility] [place]vueStart: 07-22-2025 End: 89-43-6632Qdnqlbd encounter procedureLakhadijah Alonsoa [facility] start: 24-06-8083Tcq-patient / Non-visitKaylene BARBOSAC-[facility] Work Phone: Start: 07-17-2025 End: 36-87-1962tldlbafwxhIuezacinErin Reese [employer]-C Work Phone: [facility] Work Phone: Start: 07-17-2025 End: 70-31-3234Xhuxygb encounter Lauren BARBOSAC-[facility] [place] Work Phone: Start: 01-67-1294Hemeghi encounter procedureAida Reese [employer]-C Work Phone: [facility]: 07-16-2025 End: 08-19-3237vxjailhhjnZVEHD A PETITTINot AvailableStart: 07-16-2025 End: 58-58-5769Omxlun outpatient visit 15 minutesEmalex Lazo MD Work Phone: [facility] DermatologyComment on above:Seborrheic keratosis (Primary Dx); Lentigines; History of SCC (squamous cell carcinoma) of skinStart: 07-16-2025 End: 09-45-3376Sdmeyl flowsheetJessica Lazo MD Work Phone: [facility]atologyStart: 07-16-2025 End: 43-75-6192Lpklbm Suzette Lazo MD Work Phone: [facility]ermatologyStart: 90-69-5641Thw-patient / Non-visitSraymundo Dickinson DO-[facility] Work Phone: Start: 07-08-2025 End: 17-08-5623kcxrfqoqnpCwcfav TannaFacility:[facility] [place]vueStart: 07-08-2025 End: 26-09-2337Ywwkvrv encounter procedureLauren Kat [facility] start: 06-18-2025 End: 87-03-5574AdmxbaFjch Aichholz [employer] Work Phone: [facility] CWM FMComment on above:Moderate episode of recurrent major depressive disorder (HCC)Start: 06-11-2025 End: 88-42-3589diljatjhvhAulrop TannaFacility:[facility] [place]vueStart: 06-11-2025 End: 34-30-1135Oyhvapm encounter procedureLakhadijah Stephens [facility] start: 06-04-2025 End: 60-47-7197CjzzuyMirb Aichholz [employer] Work Phone: [facility] CWM FMComment on above:Skin pustuleStart: 05-19-2025 End: 83-99-3134Vjipix flowsheetLisa Aichholz [employer] Work Phone: [facility] CWM FMStart: 05-19-2025 End: 93-03-7645Uhsdao flowsheetLisa Aichholz [employer] Work Phone: [facility] CWM FMStart: 05-19-2025 End: 95-28-0501Pwsffykjx encounterLisa Aichholz [employer] Work Phone: [facility] C[facility] FMStart: 05-19-2025 End: 31-53-5195Xuzqqn outpatient visit 25 minutesLisa López [employer] Work Phone: [facility] CWM FMComment on above:Moderate episode of recurrent major depressive disorder (HCC) (Primary Dx); Morbid (severe) obesity due to excess calories (CMS-HCC); Candidiasis of breast; Skin pustule; RLS (restless legs syndrome)Start: 05-19-2025 End: 69-44-9908fgnscmttbiZJRF AICHHOLZNot AvailableStart: 05-12-2025 End: 85-05-9617BbrcupTpve Aichholz [employer] Work Phone: noMS CWM FMComment on above:Chronic heart failure with preserved ejection fraction (HCC) (Primary Dx); Edema of both lower extremitiesStart: 05-12-2025 End: 81-22-5979gzacviwviaZnqupib Vytautas Giedraitis MDFacility:[facility] Start: 04-30-2025 End: 40-37-4852Fjtflrcfq Result EncounterGeneric External Data ProviderNOMS External Department UnsolicitedStart: 04-30-2025 End: 22-32-8420Opafiuryr Result EncounterGeneric External Data ProviderNOMS External Department UnsolicitedStart: 04-29-2025 End: 86-14-9409ImqpxjPiee Aichholz [employer] Work Phone: [facility] CWM FMComment on above:Restless leg syndrome Start: 04-27-2025 End: 90-90-9954FyhdkpYmdb Aichholz [employer] Work Phone: [facility] C[facility] FMComment on above:Chronic bilateral low back pain without sciaticaStart: 04-23-2025 End: 75-19-6352JrlgmwXoho Aichholz [employer] Work Phone: [facility] CWM FMComment on above:Moderate episode of recurrent major depressive disorder (HCC) (Primary Dx)Start: 04-09-2025 End: 70-12-9088Zhbzgr flowsheetKaylene López [employer] Work Phone: [facility] CWM FMStart: 04-09-2025 End: 53-34-7242Izqlba flowsheetLisa Rene [employer] Work Phone: [facility] CWM FMStart: 04-09-2025 End: 81-34-5320Olyatx outpatient visit 25 minutesLi Rene [employer] Work Phone: [facility] CWM FMComment on above:Moderate episode of recurrent major depressive disorder (CMS/HCC) (Primary Dx); Pulmonary emphysema, unspecified emphysema type (CMS/HCC); Chronic respiratory failure with hypoxia (CMS/HCC); Morbid (severe) obesity due to excess calories (CMS/HCC); Restless leg syndromeStart: 04-09-2025 End: 99-90-6974dzyfjrshnhZUFW AICHHOLZNot AvailableStart: 03-24-2025 End: 83-42-9676rcpckffqgpNDZTMFMS E PERRYFacility:EU [place]vueStart: 03-24-2025 End: 30-32-2389Dtlfgnq encounter procedureJENNIFER E JOSE ALEJANDRO [facility] start: 03-10-2025 End: 15-41-1014Daqvvthiv Result EncounterGeneric External Data ProviderNOMS External Department UnsolicitedStart: 03-10-2025 End: 34-11-0516Efaxocbwe Result EncounterGeneric External Data ProviderNOMS External Department UnsolicitedStart: 03-03-2025 End: 28-99-6222Vtbdrminb Result EncounterLisa Rene [employer] Work Phone: [facility] External Department UnsolicitedStart: 03-03-2025 End: 43-45-7257Rqexdvmmg Result EncounterLisa Owenz [employer] Work Phone: [facility] External Department UnsolicitedStart: 02-26-2025 End: 68-20-0623GtbinxJhxv Aichholz [employer] Work Phone: [facility] CWM FMComment on above:Gastroesophageal reflux disease without esophagitisStart: 02-17-2025 End: 56-21-1349Dukhbq flowsheetKaylene Torresdimitrystephen [employer] Work Phone: [facility] CWM FMStart: 02-17-2025 End: 30-08-6233Sfbtrf flowsheetLisa Rene [employer] Work Phone: no[facility] CWM FMStart: 02-17-2025 End: 21-05-1543Fpcztv outpatient visit 25 minutesLi Rene [employer] Work Phone: noMS CWM FMComment on above:Edema of both lower extremities (Primary Dx); Spinal stenosis, lumbar region without neurogenic claudication; Chronic heart failure with preserved ejection fraction (CMS/HCC); Chronic respiratory failure with hypoxia (CMS/HCC); Severe persistent asthma, uncomplicated (CMS/HCC); Gastroesophageal reflux disease, unspecified whether esophagitis present; Morbid (severe) obesity due to excess calories (CMS/HCC); RLS (restless legs syndrome); CandidiasisStart: 02-17-2025 End: 89-69-3750ltxenrrcreQYXU AICHHOLZNot AvailableStart: 01-23-2025 End: 63-97-9247lyywznqcszJOATTrinity Health System [facility] City Medical Centertart: 01-16-2025 End: 08-22-3443Wpvpwn outpatient visit 25 minutesLi Rene [employer] Work Phone: noms CWM FMComment on above:Pneumonia due to infectious organism, unspecified laterality, unspecified [...] Moderate episode of recurrent major depressive disorder (CMS/HCC)Start: 01-16-2025 End: 37-08-7074gppdrixdzmYUMO AICHHOLZNot AvailableStart: 01-15-2025 End: 93-45-1363IqkckhBdkx Aichholz [employer] Work Phone: noms CWM FMComment on above:Pneumonia due to infectious organism, unspecified laterality, unspecified part of lung (Primary Dx)Start: 01-02-2025 End: 04-09-4940Ziexyu outpatient visit 25 minutesLisa Rene [employer]ATOR [employer] Work Phone: noms CWM FMComment on above:Flu-like symptoms (Primary Dx); Morbid (severe) obesity due to excess calories (CMS/HCC); Body mass index (BMI) 40.0-44.9, adult ([facility]); Pulmonary emphysema, unspecified emphysema type (CMS/HCC); Chronic respiratory failure with hypoxia (CMS/HCC); Essential hypertension ([facility]/HCC)Start: 01-02-2025 End: 14-96-9401mdvjsmydojSICG AICHHOLZNot AvailableStart: 01-02-2025 End: 89-56-2625Xgucma Jose López [employer] Work Phone: noms CWM FMStart: 01-02-2025 End: 91-81-7054Fecfvp flowsNorbert López [employer] Work Phone: noms CWM FMStart: 01-02-2025 End: 34-56-7939Fgopvtfts Result EncounterGeneric External Data ProviderNOMS External Department UnsolicitedStart: 12-17-2024 End: 37-95-5796Nglfnm outpatient visit 15 minutesEmalex Lazo MD Work Phone: noms SWS DERMComment on above:Seborrheic keratosis (Primary Dx); History of SCC (squamous cell carcinoma) of skin; LentiginesStart: 12-17-2024 End: 17-75-8894ndsdcjbjhuRCNTK A PETITTINot AvailableStart: 12-17-2024 End: 72-92-8936Efiegt flowsheetRamin KING Work Phone: noms FB ORTHOPAEDICSStart: 12-17-2024 End: 42-07-5433Jexwiq flowsheetMatori KING Work Phone: noms FB ORTHOPAEDICSStart: 12-17-2024 End: 52-29-6948pnsvjuwvuiNSGLLXA J MEYERNot AvailableStart: 12-17-2024 End: 20-72-7288Btdrhb outpatient visit 25 minutesMattcheryl KING Work Phone: noms FB ORTHOPAEDICSComment on above:Acute pain of right knee (Primary Dx); History of total right knee replacement; Right hip pain; Arthritis of right hipStart: 12-15-2024 End: 39-83-8383ZlsxaaEzfjvnbi Reese [employer] Work Phone: noms CWM FMComment on above:Moderate episode of recurrent major depressive disorder (CMS/HCC)Start: 12-13-2024 End: 41-30-2642Qkwplp flowsheetEmalex Lazo MD Work Phone: noms SWS DERMStart: 12-13-2024 End: 72-08-9688Ydsenc flowsJm Lazo MD Work Phone: noms SWS DERMStart: 12-13-2024 End: 19-72-4021Zowjio outpatient visit 10 minutesEmalex Lazo MD Work Phone: noms SWS DERMComment on above:Nevus lipomatosus cutaneus superficialis (Primary Dx); Squamous cell carcinoma of skin of chestStart: 12-13-2024 End: 48-07-6891luymmlajkiUJCFS Meng PETITTINot AvailableStart: 12-05-2024 End: 35-26-0167IxpmnvSzihgowz Reese [employer] Work Phone: noms CWM FMComment on above:Restless leg syndrome Start: 11-30-2024 End: 30-11-7424LvhddiIsvfrhib Reese [employer] Work Phone: noms CWM FMComment on above:Gastroesophageal reflux disease without esophagitisStart: 11-28-2024 End: 17-82-7591Ttfvtv flowsheetBrittany Reese [employer] Work Phone: NOYT CWM FMStart: 11-28-2024 End: 27-17-0422Axqyxq flowsheetBrittany Reese [employer] Work Phone: NOKG CWM FMStart: 11-28-2024 End: 00-67-1117xcyuizakjzNSUAVBES FITZPATRICKNot AvailableStart: 11-28-2024 End: 56-47-3140Dibzgkdfbydt care manage srvc 14 day dischargeBrbhavana Vidaltrick [employer] Work Phone: NOMS CWM FMComment on above:Pulmonary emphysema, unspecified emphysema type (CMS/HCC) (Primary Dx)Start: 11-12-2024 End: 31-04-2991Ezwner flowsheetBrittany Reese [employer] Work Phone: NOMS CWM FMStart: 11-12-2024 End: 58-26-6271Eicuic flowsheetBrittany Reese [employer] Work Phone: noms CWM FMStart: 11-12-2024 End: 57-08-8304Tdtzhv outpatient visit 15 minutesBrelissakaushal BrannonReese MOTOR AND [employer]ATOR [employer] Work Phone: NOMS CWM FMComment on above:Chronic obstructive pulmonary disease with acute lower respiratory infection (CMS/HCC) (Primary Dx); Primary HSV infection of mouthStart: 11-12-2024 End: 09-34-3580czhhatptxzBAOWWDND FITZPATRICKNot AvailableStart: 10-26-2024 End: 37-91-7699PwojfgAiyjxfet Reese MOT[employer] AND [employer]ATOR [employer] Work Phone: NOMS CWM FMComment on above:Moderate episode of recurrent major depressive disorder (CMS/HCC); Restless leg syndromeStart: 10-17-2024 End: 86-11-2619cxqvladtwkNOKWTZLSelect [facility] Start: 10-15-2024 End: 03-98-7103boivwsfadcPYMDIAAK E PERRYFacility:FTMCStart: 10-15-2024 End: 36-89-2250Fsm Drop offJENNIFER E JOSE ALEJANDRO [facility] Start: 10-15-2024 End: 12-73-7277DwnlkmGmquzwfh Reese [employer]ATOR [employer] Work Phone: NOUF CWM FMComment on above:Moderate episode of recurrent major depressive disorder (CMS/HCC)Start: 10-15-2024 End: 94-97-2135oxyqhflvsrSMXVUAWG E PERRYFacility:EU BellevueStart: 10-15-2024 End: 77-82-6093Gkxaefg encounter procedureJENNIFER E JOSE ALEJANDRO [facility] start: 10-12-2024 End: 02-77-9894OwepxyUpibhhyk Reese [employer]ATOR [employer] Work Phone: noms CWM FMComment on above:Urge incontinenceStart: 10-11-2024 End: 02-86-7212Kjltmm flowsheetRylee Northeim PA Work Phone: NOMS SWS DERMStart: 10-11-2024 End: 72-41-7462Wpmlog flowsheetRylee Northm PA Work Phone: NOMS SWS DERMStart: 10-11-2024 End: 85-86-1643Zbabcrh encounter procedureRylee Northeim PA Work Phone: NOMS SWS DERMComment on above:Neoplasm of unspecified behavior of bone, soft tissue, and skin (Primary Dx)Start: 10-11-2024 End: 20-34-7024tvzxexwqkqJTGBQ NORTHEIMNot AvailableStart: 45-89-1904lewkwhjhkz MAG PERRYFacility:EU [place]walkStart: 10-07-2024 End: 53-86-2753Ushmei outpatient visit 15 minutesBrittany Reese [employer]ATOR [employer] Work Phone: noms CWM FMComment on above:Urge incontinence (Primary Dx); Morbid obesity with BMI of 40.0-44.9, adult ([facility]/HCC); 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; Stage 3a chronic kidney disease (HCC) ([facility]/HCC); Chronic respiratory failure with hypoxia ([facility]/HCC)Start: 10-07-2024 End: 83-67-7308niiaggzkcfBMNSWDST FITZPATRICKNot AvailableStart: 10-07-2024 End: 23-70-8206Inaxgt flowsheetBrittany Reese [employer] Work Phone: noms CWM FMStart: 10-07-2024 End: 13-38-4667Ivsbtg flowsheetEstrellitaany Reese [employer] Work Phone: noms CWM FMStart: 09-25-2024 End: 54-60-0703QuyzthLwsnnsxs Reese [employer] Work Phone: noms CWM FMComment on above:Restless leg syndrome Start: 09-12-2024 End: 90-41-7242fiagbsitlsTpalyeio N Reese MOTOR AND [employer]ATOR [employer]-C Work Phone: [facility] Work Phone: Start: 09-12-2024 End: 57-79-5388Ygyqrymd ReferredAida Rubiopatrick MOTOR [employer]ATOR [employer]-C Work Phone: [facility] CampusStart: 09-10-2024 End: 66-31-3096Nrkawr OnlyAida Reese [employer]OR AND [employer]ATOR [employer] Work Phone: noms CWM FMComment on above:Vaginal guero (Primary Dx)Start: 09-05-2024 End: 61-60-7243Dqklplrv ReferredBrbhavana Reese [employer]ATOR [employer]-C Work Phone: [facility] Iiw-Abm-Dqlfryan Testing Work Phone: Start: 09-05-2024 End: 42-09-9181Ldppwxk encounter procedureKELI Reese Work Phone: [facility] Lts-Suh-Sjnwnwyy Testing Work Phone: Start: 09-05-2024 End: 84-82-7070pgftwzfenuHQ-C Aida Reese Work Phone: [facility] Work Phone: Start: 09-03-2024 End: 76-43-9783VfplkjKsvpJuan SERRANO CWM FMComment on above:Gastroesophageal reflux disease without esophagitisStart: 08-19-2024 End: 53-92-1790Oyggap flowsheetAida Brannonzpatrick [employer] Work Phone: noms CWM FMStart: 08-19-2024 End: 65-74-4522Vrapyi flowsheetBrbhavana Reese [employer] Work Phone: noms CWM FMStart: 08-19-2024 End: 14-62-3901Pafgvrfpiqhq care manage srvc 7 day dischargeAida Vidaltrick [employer] Work Phone: noms CWM FMComment on above:Moderate persistent asthma with exacerbation (CMS/HCC) (Primary Dx); Diarrhea, unspecified typeStart: 08-19-2024 End: 83-58-5129zwywnclydyYBHKNQQF FITZPATRICKNot AvailableStart: 08-12-2024 End: 82-39-7691Lwjfxbwjf Result EncounterSlebron Ohara MD Work Phone: noms External Department UnsolicitedStart: 08-12-2024 End: 47-01-9154Vndeemasa Result EncounterSlebron Ohara MD Work Phone: noms External Department UnsolicitedStart: 08-12-2024 End: 07-92-1199FrummxSuqqohco Reese [employer] Work Phone: noms CWM FMComment on above:Restless leg syndrome Start: 08-08-2024 End: 39-06-7485Kce-patient / Fhn-gbonfEP-L Aida Reese Work Phone: [facility] Work Phone: Start: 08-08-2024 End: 14-84-5983Dnaaenzqd Result EncounterGeneric External Data ProviderNOMS External Department UnsolicitedStart: 08-08-2024 End: 28-58-6040Vkkttnhbf Result EncounterGeneric External Data ProviderNOMS External Department UnsolicitedStart: 07-17-2024 End: 75-69-9566WwqwgxBydy Naderer MD Work Phone: noms CWM FMComment on above:Moderate episode of recurrent major depressive disorder (HCC) (CMS/HCC); Urge incontinenceStart: 07-16-2024 End: 04-24-2228NeqgyhEgmedm Buttsmatthias SERRANO CWM IMComment on above:Chronic bilateral low back pain without sciaticaStart: 07-15-2024 End: 13-37-1568zubgnjlkyiPawjtpbJayshree Vargas MDFacility:[facility] [place] Start: 07-12-2024 End: 08-48-7962Olmxcbxay Result EncounterBrittany Reese [employer] Work Phone: noms External Department UnsolicitedStart: 07-12-2024 End: 60-47-3933Mmqzwrhro Result EncounterBrittany Reese [employer] Work Phone: noms External Department UnsolicitedStart: 07-11-2024 End: 91-21-4874Kvjlyd flowsheetBrittany Reese [employer] Work Phone: noms CWM FMStart: 07-11-2024 End: 51-42-1529Gxanrn flowsheetBrittany Reese MOT[employer] AND [employer]ATOR [employer] Work Phone: noms CWM FMStart: 07-11-2024 End: 20-21-4062wblolmksyyNRFDMAHChillicothe Hospital Start: 07-11-2024 End: 86-10-0829Qqyjrx outpatient visit 25 minutesAida Reese MOTOR AND [employer]ATOR [employer] Work Phone: NOHI CWM FMComment on above:Benign essential HTN (CMS/HCC) (Primary Dx); Chronic heart failure with preserved ejection fraction (CMS/HCC); Severe persistent asthma without complication (CMS/HCC); Moderate mixed hyperlipidemia not requiring statin therapy (CMS/HCC); Morbid obesity with BMI of 40.0-44.9, adult (CMS/HCC)Start: 07-02-2024 End: 81-31-5799fynutnvjifWYMKPOVWayne HealthCare Main Campus Start: 27-91-5936Ogd-patient / Uqy-jefuhEU-JZeina Reese Work Phone: [facility] Work Phone: Start: 06-28-2024 End: 50-29-0365Jwebbauab Result EncounterGeneric External Data ProviderNOMS External Department UnsolicitedStart: 06-28-2024 End: 45-29-6044Qzpnuqvmv Result EncounterGeneric External Data ProviderNOMS External Department UnsolicitedStart: 80-40-5143sttiteydpaEKCIIKIJoint Township District Memorial Hospitaltart: 06-24-2024 End: 93-20-5022xqrehauggpGgbgifrJayshree Vargas MDFacility:[facility] Start: 06-21-2024 End: 33-81-2114xgtgrajgurJFTIAOZWayne HealthCare Main Campus Start: 05-13-2024 End: 48-41-5619cqsifkcwhhNFQA [facility] Hospitaltart: 03-14-2024 End: 60-14-4542geenxqzsxlGjeytw Roshon Work Phone: [facility] Work Phone: Start: 03-14-2024 End: 62-31-0612Swoccxp encounter procedureSteven Josiehon Work Phone: [facility] Nephrology Sridhar Work Phone: Start: 28-29-5328Nsk-patient / Non-visitStenaseem Marinelli Work Phone: [facility] Professional Cyphoma Work Phone: Start: 17-67-2186Pthvcmc encounter procedureGeneric ProviderOGDEN REGIONAL [facility] HealthcareStart: 09-07-2023 End: 07-48-8827gyfjbcejqbAekxw Joana Other [employer] Other Start: 21-23-0017Kjodlxrqz encounterAbdul QadirFPG NephrologyStart: 08-28-2023 End: 33-27-6388faynyiqmqpRttew Joana Other [employer] Other Start: 86-01-8701Msynczrgm encounterAbdul QadirFPG NephrologyStart: 08-17-2023 End: 30-19-5666dygyleplbsCmipo Joana Other [employer] Other Start: 36-47-3241Mxumgz outpatient visit 25 minutes Herberth QadirFPG Nephrology ClydeStart: 04-04-2023 End: 61-81-1611gxhaadmwroXRLURX H FAWWADFacility:Y8Crkmz: 03-24-2023 End: 78-70-8275ulwvpbhjiaTI STEVEN R ZIEBERFacility:O1Gklhm: 03-02-2023 End: 02-34-0962tfjufnstycYcokm Joana Other [employer] Other Start: 80-81-5467Gyfqtk outpatient visit 25 minutes Herberth QadirFPG Nephrology ClydeStart: 02-25-2023 End: 54-35-7350fafrcpkhnkRGXTX QADIRFacility:N3Bhrnk: 02-22-2023 End: 60-12-5937zxzvbarjtdMRTBOS SAMSA .Facility:D8Tpxhb: 12-15-2022 End: 43-04-9693vphzchmdxsLS JACK HALL .Facility:F0Jzgsx: 12-08-2022 End: 13-50-0883Wmahmvphf to same day surgery centerWY Shaikh Barbaramame Work Phone: [facility] Work Phone: Start: 12-08-2022 End: 12-27-0159nfqhkaehvwXI Shaikh Lev Work Phone: [facility] Work Phone: Start: 11-11-2022 End: 72-70-3775tkwryanyzqOT JACK HALL .Facility:S5Rdcgs: 11-09-2022 End: 22-74-6239glvmsgmvgnTbzf Bakhous Other [employer] Other Start: 45-08-2906Nqqdvfegd encounterAziz MileyFPG NephrologyStart: 08-19-2022 End: 91-85-2431ufalaeyoniXUSPL QADIRFacility:F1Hnagz: 08-09-2022 End: 61-74-4174mrabwgbwzbMvlzt Joana Other [employer] Other Start: 64-90-6550Cqgzqc outpatient visit 10 minutes Herberth QadirFPG NephrologyStart: 48-34-5973Uaoundoae encounterAbdul QadirFPG NephrologyStart: 99-60-4548Hwswfcqkb encounterAbdul QadirFPG NephrologyStart: 08-05-2022 End: 99-28-6890gyyqjcwymxDPUIB QADIRNort [employer] Other Start: 07-08-2022 End: 65-86-6503askpaddduvYcdwvazk McCormack Other [employer] Other Start: 68-43-6440Jxlepjhvl encounterLamargaritajeremy Jose L FPG GastroenterologyStart: 07-05-2022 End: 96-05-8377nldukjgdzjGMNOCT H FAWWADFacility:Z2Avjps: 06-08-2022 End: 88-56-8607kltwlhzcsdELNMOM H FAWWADFacility:P7Nqqjy: 06-07-2022 End: 51-96-9156ybbzwudwmiZOZLJD H FAWWADFacility:H9Izpja: 01-24-2022 End: 82-43-7143martsqvyxqHBVBVJLEG UNKNOWNFacility:UTMCStart: 11-17-2021 End: 47-31-7117cfkxbugmfsMfeqk Joana Other nossm [facility] [employer] Other Start: 84-25-9494Gzqkrs outpatient visit 15 minutes Herberth QadirFPG NephrologyStart: 24-49-3938Ptuneq outpatient visit 15 minutes Rena GintyFPG Urgent Care ClydeStart: 09-11-2020 End: 01-07-2401Zjyiq abstractingMiguelito Leungwilmerpili Work Phone: Hematology/OncologyStart: 09-11-2020 End: 55-25-8273Pxhliad encounter procedureExternal ProviderCleveland Clinic Start: 74-05-9785Serkova OnlyExternal ProviderExternal-NonCCFStart: 09-30-2019 End: 95-15-2500Iscwrhz encounter procedureSteHenry County Hospital [facility]ound Main CampusStart: 07-07-2017 End: 64-95-1613Khdjdzhzf to day surgeryTriHealth [facility]-Digestive HealthStart: 67-14-6111Tsrqobziel and management of inpatient [facility] C[facility]-3 WestStart: 96-62-5140Evimseknul and management of inpatientSPomerene Hospital C[facility] Procedures DateProcedureProcedure DetailPerforming ClinicianStart: 08-04-2025 Gastrointestinal pathogens panel - Stool by KAYLEE with probe detectionKaylene López [employer] Work Phone: Start: 99-51-4853Fyolq hip unilateral with pelvis 2-3 viewsGeneric External Data ProviderStart: 92-21-4418SNMZE CULTURE 2Generic External Data ProviderStart: 23-91-7117YOOWE CULTURE 1Generic External Data ProviderStart: 03-03-2025 End: 89-19-0746Htwhbfxwb mammography bi 2-view breast inc cadKaylene López [employer] Work Phone: Start: 46-40-5357IJIQH CULTURE 1Generic External Data ProviderStart: 47-86-6718LOZYBL COVID-19/FLUKaylene López MOTOR [employer] Work Phone: Start: 12-17-2024 End: 06-00-0001Jmcji hip unilateral with pelvis 2-3 viewsMattcheryl KING Work Phone: Start: 29-11-5700NBCXIVEYTFV OF LESIONEmily A Clifton DRAPER Work Phone: Start: 03-81-5778PUZN / NAIL BIOPSYRylee Russel KING Work Phone: Start: 11-99-0700Nzhaenmzvy cells LM Ql (Urine sed) Shaikh Lev DRAPER Work Phone: Start: 54-78-5762MOWB STAIN EVALUATIONSlebron Ohara MD Work Phone: Start: 96-59-7764Bggxtcwmzh [#/volume] in BloodShaijohn Ohara MD Work Phone: Start: 56-75-4011KRWJB RESPIRATORY CULTURESlebron Ohara MD Work Phone: Start: 29-77-8401SNFGON Hakan Ohara MD Work Phone: Start: 21-01-2698FLVBRO 2Slebron Ohara MD Work Phone: Start: 68-87-0801HLMBUB 3Slebron Ohara MD Work Phone: Start: 95-45-5136DTAXRI 4Slerbon Ohara MD Work Phone: Start: 22-12-7183VDEOV CULTURE 1Generic External Data ProviderStart: 85-99-2909YJUKG CULTURE 2Generic External Data ProviderStart: 75-80-1126ALP CBC WITH AUTO DIFFBrittany Reese [employer] Work Phone: Start: 92-25-7788VOYTI CULTURE 2Generic External Data ProviderStart: 43-39-2900KMVYP CULTURE 1Generic External Data ProviderStart: 13-33-5390LprttpxhdsyEmxavhl ProviderStart: 12-08-2022 End: 37-81-6436MclpblnsrvpSN Shaikh Lev Work Phone: Start: 49-55-1698VQTYERTV IMAGINGExternal Provider Start: 69-59-4901KHWARAWH LABExternal ProviderStart: 17-86-9964FCRJTRFO PROCEDUREExternal ProviderStart: 88-15-8450Paiqbxjpithluqn of bilateral kidneys Steph RoshonArthroplasty of kneeJENNIFER JSOE ALEJANDRO ColonoscopyJENNIFER JOSE ALEJANDRO Extraction of cataractJENNIFER JOSE ALEJANDRO Insertion of hip prosthesisJENNIFER JOSE ALEJANDRO Ligation of fallopian tubeJENNIFER JOSE ALEJANDRO Plan of Treatment DateCare ActivityDetailAuthorStart: 29-24-4308Njhosbecs for malignant neoplasm of colonNOMS HealthcareStart: 12-15-2026 End: 76-43-1344Ukzhppv encounter procedureNOMS FB ORTHOPAEDICSStart: 07-16-2026 End: 14-15-2082Vggavsm encounter jnjybocph49/10/2026 8:45 AM EDT Office Visit [facility] [address] [place] [phone] Jessica Lazo MD [address] [place] [address] NOMRajendra Oakes DermatologyStart: 04-09-2026 Urine screening for proteinDiabetes: Urine Protein ScreeningBarn[facility] Comment on above:Postponed from 1975 (Other Medical Reasons)Start: 11-74-0306Vhdxsluyk for malignant neoplasm of breastMammogramOGDEN REGIONAL MEDICAL [facility]ENTER Healthcare Start: 69-91-2850Memqfoj referralMer[facility] Health St[facility] Work Phone: Start: 07-17-2025 End: 92-33-2302Bsljtnr encounter inilpszln81/11/2025 9:00 AM EDT Office Visit NOMRajendra TSAI FM [address] [place] [address] Kaylene López NP [address] [place] [address] NOMS CWM FMStart: 07-16-2025 End: 78-65-0346Zkiyxob encounter vaorzlhpx75/10/2025 2:45 PM EDT Office Visit [facility] [address] [place] [phone] Jessica Lazo MD [address] [place] [address] WILL [facility]akes DermatologyStart: 07-07-2025 Influenza vaccinationInfluenza Vaccine (#1)NOMS HealthcareStart: 06-17-2025 End: 29-78-6300Vmiklro encounter procedureNOMS SWS DERMStart: 05-19-2025 End: 07-44-4084Wkpenfb encounter procedureNOMS CWM FMComment on above:Moderate episode of recurrent major depressive disorder (HCC) (Primary Dx); Morbid (severe) obesity due to excess calories ([facility]CC)Start: 04-09-2025 End: 42-56-3211Icforek encounter byiffnyoi06/04/2025 11:00 AM EDT Office Visit NOMS [facility] [address] [place] [address] Kaylene López, RIKKI [address] [place] [phone] Pulmonary emphysema, unspecified emphysema type (CMS/HCC) (Primary Dx); Chronic respiratory failure with hypoxia (CMS/HCC); Morbid (severe) obesity due to excess calories (CMS/HCC)[facility] FMComment on above: Pulmonary emphysema, unspecified emphysema type (CMS/HCC) (Primary Dx); Chronic respiratory failure with hypoxia (CMS/HCC); Morbid (severe) obesity due to excess calories (CMS/HCC)Start: 03-26-2025 End: 16-01-7324Aisevjt encounter jwqagzovy02/21/2025 11:30 AM EDT Office Visit NOMS [facility] [address] [place] [address] Kaylene López, RIKKI [address] [place] [address] [facility] FMStart: 91-07-3248Euvhgxvux for malignant neoplasm of breastMaDetroit Receiving HospitalStart: 02-17-2025 End: 11-90-4835Qhexile encounter procedureNOMUSCOGEE FMComment on above:Spinal stenosis, lumbar region without neurogenic claudication (Primary Dx); Chronic heart failure with preserved ejection fraction (CMS/HCC); Chronic respiratory failure with hypoxia (CMS/HCC); Severe persistent asthma, uncomplicated (CMS/HCC); Gastroesophageal reflux disease, unspecified whether esophagitis present; Morbid (severe) obesity due to excess calories (CMS/HCC)Start: 02-16-2025 End: 09-03-4329IH Breast - bilateral ScreeningBilateral screening mammogram Imaging Routine Screening mammogram for breast cancer Expected: 02/16/2025 (Approximate), Expires: 03/18/2026[facility] Work Phone: Comment on above:Expected: 02/16/2025 (Approximate), Expires: 03/18/2026Start: 01-16-2025 End: 23-58-6493Jzjthrz encounter fjaacwzvo57/13/2025 10:00 AM EDT Office Visit NOMS CWKaty FM [address] [place] [address] Kaylene López, RIKKI [address] [place] [address] NOMS CWM FMStart: 01-09-2025 End: 14-36-0444Pnbhnud encounter kucnezmmx11/06/2025 1:40 PM EST Office Visit NOMS [facility] [address] [place] [address] Kaylene López, [employer] [address] [place] [address] NOMS CWM FMStart: 01-09-2025 End: 31-47-4039Xjfapcp encounter tijgrvxqs12/06/2025 8:30 AM EST Office Visit NOMS C[facility] [address] [place] [address] Aida Reese NP [address] [place] [address] NOMS CWM FMStart: 01-02-2025 End: 04-79-5400Kfcqrgk encounter kmwqxwluk69/27/2025 2:40 PM EST Office Visit NOMS C[facility] [address] [place] [address] Kaylene López, [employer] [address] [place] [address] Pulmonary emphysema, unspecified emphysema type (CMS/HCC) (Primary Dx); Chronic kidney disease, stage 3a (HCC) (CMS/HCC); Severe persistent asthma, uncomplicated (CMS/HCC); Morbid (severe) obesity due to excess calories (CMS/HCC); Body mass index (BMI) 40.0-44.9, adult (CMS/HCC); Chronic respiratory failure with hypoxia (CMS/HCC); Essential hypertension (CMS/HCC); Gastroesophageal reflux disease, unspecified whether esophagitis present; Malignant neoplasm of rectosigmoid junction (CMS/HCC); Urge incontinenceNOMS [facility] FMComment on above:Pulmonary emphysema, unspecified emphysema type (CMS/HCC) (Primary Dx); Chronic kidney disease, stage 3a (HCC) (CMS/HCC); Severe persistent asthma, uncomplicated (CMS/HCC); Morbid (severe) obesity due to excess calories (CMS/HCC); Body mass index (BMI) 40.0-44.9, adult (CMS/HCC); Chronic respiratory failure with hypoxia (CMS/HCC); Essential hypertension (CMS/HCC); Gastroesophageal reflux disease, unspecified whether esophagitis present; Malignant neoplasm of rectosigmoid junction (CMS/HCC); Urge incontinenceStart: 12-17-2024 End: 86-22-7305Ftjvwev encounter procedureNOMS FB ORTHOPAEDICSStart: 12-13-2024 End: 07-26-8814Edkxfan encounter procedureNOMS KYLIE DERMComment on above:Arrived Start: 12-09-2024 End: 02-72-8567Isbevbt encounter gplrkwgqu14/03/2025 2:30 PM EST Office Visit [facility] [address] [place] [address] Aida Reese NP [address] [place] [address] [facility] QUIN FMStart: 11-20-2024 End: 42-53-5608Svoalwj encounter procedureNOMS FB ORTHOPAEDICSStart: 11-15-2024 End: 74-85-5395Qljkzmo encounter bfofhlkdv91/10/2025 10:30 AM EST Office Visit [facility] [address] [place] [address] Jayna Goode PA [address] [place] [address] [facility] SWS DERMStart: 11-12-2024 End: 45-77-6857AF Chest 2 ViewsXR chest 2 views Imaging Routine Chronic obstructive pulmonary disease with acute lower respiratoryinfection (CMS/HCC) Expected: 11/12/2024, Expires: 11/12/2025[facility] Work Phone: Comment on above:Expected: 11/12/2024, Expires: 11/12/2025Start: 11-12-2024 End: 79-77-2559Vlayuvx encounter xzewupcaa37/07/2025 10:30 AM EST Office Visit [facility] [address] [place] [id number] Aida Reese NP [address] [place] [address] ArrivedNOMS CWM FMComment on above:ArrivedStart: 10-11-2024 End: 83-52-7404Rhimvsj encounter oeooyuhcr57/06/2024 8:50 AM EST Office Visit [facility] [address] [place] [address] Jayna Goode PA [address] [place] [address] 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NOMS SWS DERMComment on above: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Start: 10-09-2024 End: 56-40-0670Aegvnyy encounter ntjhsueuv03/04/2024 9:00 AM EST Office Visit [facility] [address] [place] [id number] Aida Reese NP [address] [place] [address] [facility] CWM FMStart: 10-07-2024 End: 49-63-8667Uipdkay encounter zoubiiwcr75/02/2024 2:30 PM EST Office Visit [facility] [address] [place] [phone] Mary Ann Aida, [employer] [address] [place] [address] ArrivedNOMS CWM FMComment on above:ArrivedStart: 09-12-2024 Phacoemulsification of cataract with intraocular lens implantationOR Cataract PHACO W/IOL/Vitrectomy (Left)[facility]: 08-19-2024 End: 10-53-1458Sheiznhrqprgoj difficile toxin A+B tcdA+tcdB genes [Presence] in Stool by KAYLEE with probe detectionClostridium difficile,EIA Microbiology Routine Diarrhea, unspecified type Expected: 08/19/2024 (Approximate), Expires: 08/19/2025[facility] Work Phone: Comment on above:Expected: 08/19/2024 (Approximate), Expires: 08/19/2025Start: 08-19-2024 End: 72-65-4614Rojwfrt encounter procedureNOMS CWM FMComment on above:Arrived Start: 07-11-2024 End: 77-80-6251UWA W Auto Differential panel - BloodCBC and differential Lab Routine Benign essential HTN (CMS/HCC) Chronic heart failure with preserved ejection fraction (CMS/HCC) Moderate mixed hyperlipidemia not requiring statin therapy (CMS/HCC) Morbid obesity with BMI of 40.0-44.9, adult (CMS/HCC) Expected: 07/11/2024 (Approximate), Expires: 07/11/2025[facility] HealthcareComment on above:Expected: 07/11/2024 (Approximate), Expires: 07/11/2025Start: 07-11-2024 End: 09-09-6730Zqhfimijxiqlz metabolic 2000 panel - Serum or PlasmaComprehensive metabolic panel Lab Routine Benign essential HTN (CMS/HCC) Chronic heart failure withpreserved ejection fraction (CMS/HCC) Moderate mixed hyperlipidemia not requiring statin therapy (CMS/HCC) Morbid obesity with BMI of 40.0-44.9, adult (CMS/HCC) Expected: 07/11/2024 (Approximate), Expires: 07/11/2025[facility] HealthcareComment on above:Expected: 07/11/2024 (Approximate), Expires: 07/11/2025Start: 07-11-2024 End: 94-09-8629Pesln 1996 panel - Serum or PlasmaLipid panel Lab Routine Moderate mixed hyperlipidemia not requiring statin therapy (CMS/HCC) Expected: 07/11/2024 (Approximate), Expires: 07/11/2025[facility] HealthcareComment on above: Expected: 07/11/2024 (Approximate), Expires: 07/11/2025Start: 07-11-2024 End: 96-92-3064Kmzisgyzcqer/Creatinine panel in random UrineMicroalbumin / creatinine urine ratio Lab Routine Benign essential HTN (CMS/HCC) Expected: 07/11/2024 (Approximate), Expires: 07/11/2025[facility] Healthcare Work Phone: Comment on above:Expected: 07/11/2024 (Approximate), Expires: 07/11/2025Start: 07-11-2024 End: 48-91-6217Lqryunl encounter procedureNOMS CWM FMComment on above:Benign essential HTN (CMS/HCC) (Primary Dx); Chronic heart failure with preserved ejection fraction (CMS/HCC); Severe persistent asthma without complication (CMS/HCC)Start: 07-07-2024 Influenza vaccinationInfluenza Vaccine (#1)[facility] HealthcareStart: 12-08-2022 [facility]art: 12-32-7597Rmkebxlnr vaccinationINFLUENZA (#1)[facility]art: 46-86-9382NTRKLLPS VACCINE (1 of 2)SHINGRIX VACCINE (1 of 2)[facility]ustart: 81-57-0413Ltzbepyyngyj screeningCOLORECTAL CANCER SCREENING,SEE MODIFIERSumma Health [facility] Campustart: 37-45-6062TBZPJUYO SCREENDIABETES SCREENSumma Health [facility] Campustart: 52-91-8159KCCYD SCREENLIPID SCREENOhiohealth O'[facility]leness Hospital Start: 56-54-5619LpdbztvtusfKOQSFWCRCNodrbwcrb ClinicStart: 98-32-7122YZQ TESTINGHPV TESTINGSumma Health [facility] Campustart: 46-77-9651URM TESTINGPAP TESTING [facility] Campustart: 83-60-9447Tbcqa microalbumin profileDTAP,TDAP,TD (1 - Tdap)[facility] Campustart: 16-97-5679Hrmtp screening for proteinDiabetes: Urine Protein ScreeningBarnes-Jewish West County HospitalStart: 28-48-2006KDKDVNBPY C SCREENINGHEPATITIS C SCREENINGSum[facility] Campustart: 42-41-0594MYQ SCREENINGHIV SCREENINGSumma Health [facility] Campustart: 68-84-8503Onubpviv screeningDiabetes: Retinopathy ScreeningBarnes-Jewish West County HospitalStart: 16-37-4871Sxkukzimqw A1c measurementDiabetes: Hemoglobin A1C [facility] HospitalStart: 72-72-2579Gijbpirxw for malignant neoplasm of colonNOVA HealthcareBLOOD CULTURE 1BLOOD CULTURE 1 Lab Routine 08/08/2024 8:30 PM EDTNOMS HealthcareBLOOD CULTURE 1BLOOD CULTURE 1 Lab Routine 06/28/2024 8:20 PM EDTNOMS HealthcareBLOOD CULTURE 1BLOOD CULTURE 1 Lab Routine 01/02/2025 4:30 PM ESTNOMS HealthcareBLOOD CULTURE 1BLOOD CULTURE 1 Lab Routine 03/10/2025 10:25 PM EDTNOVA HealthcareBLOOD CULTURE 2BLOOD CULTURE 2 Lab Routine 08/08/2024 8:20 PM EDTNOMS HealthcareBLOOD CULTURE 2BLOOD CULTURE 2 Lab Routine 06/28/2024 8:21 PM EDTNOVA HealthcareBLOOD CULTURE 2BLOOD CULTURE 2 Lab Routine 03/10/2025 10:32 PM EDT NOMS HealthcareComprehensive metabolic 2000 panel - Serum or PlasmaNationwide Children'S HospitalDermatopathology examDermatopathology exam Pathology and Cytology Timed Neoplasm of unspecified behavior of bone, soft tissue, and skin Release Upon Ordering for 1 Occurrences starting 10/11/2024[facility] Work Phone: comment on above:Release Upon Ordering for 1 Occurrences starting 10/11/2024LOWER RESPIRATORY CULTURELOWER RESPIRATORY CULTURE Lab Routine 08/12/2024 9:50 AM [facility] Work Phone: Patient EducationColon Polypectomy Hemorrhoids (DC) Diverticulosis (DC)[facility] Work Phone: Patient [facility] Work Phone: Urine [facility] Immunizations Immunization DateImmunizationNotesCare ZlefivzfPdmqfiny39-38-6856nciiwhlcm, high dose seasonal, preservative-freeLisa Rene [employer] Work Phone: NOChristian HospitalHbqcbkstdz87-60-2237xwmzdtnxn virus vaccine, unspecified formulationAida Reese [employer] Work Phone: [facility]10-21-2023Influenza, High-dose Seasonal, Quadrivalent, Preservative Free Generic [facility] HospitalNfwnjemcdt61-18-3781zxmajewqq virus vaccine, unspecified formulationGeneric ProviderExec[facility]10-13-2023RSV, recombinant, protein subunit RSVpreF, adjuvant reconstitu, 120mcg/0.5mL, PF (Arexvy)Generic [facility]10-04-2023 Pneumococcal Conjugate PCV 20Generic [facility] HospitalWljwmhrykd76-87-0060wfwxpv vaccine recombinantGeneric [facility] HospitalUzradmyyrr43-35-2980mglaox vaccine recombinantGeneric [facility] HospitalOixhhztmsl32-33-1179kqdmsyzmp virus vaccine, unspecified formulationJEADAMARIS GOMEZRY [facility]09-29-2022Influenza, High-dose Seasonal, Quadrivalent, Preservative Free Generic [facility] HospitalKeobiqzqsp88-42-5155YZHC-FsA-4 (COVID-19) mRNAMUL.ORD!q86373OWFSEEHH JOSE ALEJANDRO [facility]05-20-2022SARS-CoV-2 (COVID-19) mRNA-1273 vaccineJENNIFER JOSE ALEJANDRO [facility]11-01-2021SARS-CoV-2 (COVID-19) mRNA-1273 vaccineJENNIFER JOSE ALEJANDRO [facility]10-01-2021influenza virus vaccine, unspecified formulationJENNIFER JOSE ALEJANDRO [facility]10-01-2021Influenza, High-dose Seasonal, Quadrivalent, Preservative Free Generic [facility] HospitalNhhzvuzwcs29-87-2161LRDT-XzL-2 (COVID-19) mRNA-1273 vaccine MAG JOSE ALEJANDRO [facility] on above:Result Comment: 2025-03-24: JNI5223-26-5851RUPR-DsQ-1 (COVID-19) mRNA-1273 vaccineJENNIFER JOSE ALEJANDRO [facility] on above:Result Comment: 2025-03-24: ANJ5713-56-1745bcifsukws virus vaccine, unspecified formulationJENNIFER JOSE ALEJANDRO [facility]10-02-2020influenza, injectable, quadrivalent, preservative freeGeneric [facility] HospitalXrcfhepuwr58-84-8560tswviqhoo virus vaccine, unspecified formulationJENNIFER JOSE ALEJANDRO [facility]10-04-2019influenza, injectable, quadrivalent, preservative freeGeneric [facility] HospitalUfwghzhjex57-92-1980uauwzqppzjre polysaccharide vaccine, 23 valent Generic [facility] HospitalBjrujmpvia02-29-4860uhisvnkys virus vaccine, unspecified formulationJENNIFER JOSE ALEJANDRO [facility]10-03-2018influenza, injectable, quadrivalent, preservative freeGeneric [facility] HospitalHzlbudvqvf28-82-4919Xvra-Esondc 40 mgAmber Ginty Other nossm [facility] Aircrm Other 03157037-95-1453Iiuj-Tmmqdi 40 mgAmber Ginty Other Tell Aircrm Other 10018623-04-8264boqauupne virus vaccine, unspecified formulationJENNIFER JOSE ALEJANDRO [facility]10-05-2017influenza, injectable, quadrivalent, preservative freeGeneric [facility] HospitalKamjujuyur50-73-6362sqkrsfpas virus vaccine, split virus (incl. purified surface antigen)Generic [facility] HospitalKnlqoiukmu57-38-3684bcumprnpp virus vaccine, unspecified formulationSteven [facility] Work Phone: [facility]10-04-2017influenza, seasonal, injectable, preservative freeAmber Ginty Other nossm [facility] Aircrm Other 10758563-04-3374gauvc qqfpgxcfn-F9R4-76, preservative-free, injectableGeneric [facility] Healthcare Payers DatePayer CategoryPayerPolicy [id number] 2025Medicaid [id number] 2025Medicaid [id number] Health [id number] 2024 Medicare (Managed Care)[id number] [id number] [id number] 2020Medicaid MEDICAID [facility] MEDICAID [id number] 2019-Present [id number] 2017Medicare [id number] 2016MedicareMEDICARE MEDICARE A AND B [id number] 2016-Present [place], [place] [id number] 1.2.840.1652[id number] [id number] 2.16.840.1.943413.3.57[id number] 2.16840.1.084115.3.579.[id number] 2.16.840.1.787000.3.579.2.29067-81-8861Cejuyje3539231 2.16.840.1.512679.3.579.2.80454-60-9239Eutzjkh0802021 2.16.840.1.373688.3.579.2.95861-75-9015Dahuxgq0690488 2.16.840.1.422116.3.579.2.50935-74-3998Gadlqpa1543556 2.16.840.1.694882.3.57[id number] 2.16.840.1.394291.3.579.2.19716-56-3359Unnvgol5284534 2.16.840.1.894285.3.579.2.53395-21-2528Fgnsezy2686998 2.16840.1.646670.3.579.2.50263-26-5051Tglifwr8453111 2.16.840.1.916282.3.579.2.21136-31-6065Ettugrt8477862 2.16840.1.824678.3.579.2.64933-25-7062Tnogyyv32349370 2.16840.1.051867.3.579.2.97620-46-1021Ycfskau78974123 2.840.1.292645.3.579.2.75731-72-0567Tgalaeq82891679 2.16840.1.564762.3.579.2.64101-45-8350Ebdqrsv965852006 2.840.1.735227.3.579.2.86224-79-4611Brbievk765540543 2.840.1.826481.3.579.2.30780-91-9518Dcpzofq840361776 2.840.1.205475.3.579.2.09317-11-8964Bgayvwg11423331 2.16840.1.987043.3.579.2.638405-97-1387Xnnbwxu24209194 2.16840.1.711724.3.579.2.135249-66-5737Aahxvsv35010522 2.16840.1.812291.3.579.2.472563-81-2664Ksrywms3938011 2.16840.1.208500.3.579.2.816393-73-8697Xcavqao6149461 2..1.541840.3.579.2.818619-04-5639Mbtpcyl4395468 2.0.1.437822.3.579.2.887595-64-3888Lkjdtrv9912853 2.0.1.979398.3.579.2.773967-35-3804Kdkmrfc7730046 2.0.1.516751.3.579.2.499753-92-2540Tamnphu4934211 2..1.499504.3.579.2.340000-16-1670Wxnaiid3909480 2..1.635664.3.579.2.405651-28-5874Vzrshvo9900505 2.0.1.511491.3.579.2.747259-07-5158Ycpylue6826456 2..1.525484.3.579.2.562875-00-7724Suwbgol1825641 2..1.213688.3.579.2.859517-64-8594Nzrnnkm8333518 2..1.763444.3.579.2.566593-69-3255Xscmhqv6079454 2..1.141225.3.579.2.181718-43-4140Uiksktj8258036 2.840.1.612370.3.579.2.692474-14-4582Vxqibyd14337359 2.840.1.658386.3.579.2.43168-02-5366Ecfmebc71186871 2.16.840.1.507133.3.579.2.42476-18-6733Cczjksu51371163 2..840.1.865644.3.579.2.93923-25-1510Ixcdkng13213140 2..840.1.52[id number]-lvlCqtk Pay [id number] Social History DateTypeDetailFacilityTobacco smoking status NHISUnknown if ever smokedFort Hamilton Hospital CtrStart: 41-65-3369Fja [facility] At [facility]tart: 09-11-2020 End: 35-25-1492Uycuxgv smoking status NHISNever smokerLakeHealth TriPoint Medical Centertart: 09-11-2020 End: 35-22-5956Blmujuu use and exposureNever usedSumma Health [facility] Campustart: 09-11-2020 End: 33-76-8974Kztsgme intakeLifetime non-drinker (finding)[facility] Start: 16-74-6242Cjjazwt SDOH Alcohol Wbxilwvyv5Wjcyfazsw ClinicStart: 40-93-0083Cjh Assigned At BirthNot on fileSumma Health Akron Campustart: 10-26-2023 End: 93-66-7218Tzg [facility]igned At [facility] CenterStart: 10-26-2023 End: 49-79-0589Eistbje of Social functionNOMS HealthcareWithin the last year, have you been afraid of your partner or ex-partner?NoNOMS HealthcareAre you now , , , , never or living with a partner? DivorcedNOMS HealthcareHow often to you have a drink containing alcohol?Never [facility] HealthcareHow many standard drinks containing alcohol do you have on a typical day?Patient does not drinkNOMS HealthcareHow hard is it for you to pay for the very basics like food, housing, medical care, and heatingNot very hard N[facility]S HealthcareDo you feel stress - tense, restless, nervous, or anxious, or unable to sleep at night because yourmind is troubled all the time - these days [OSQ]To some extentNOMS Healthcare(I/We) worried whether (my/our) food would run out before (I/we) got money to buy more.Never trueNOMS HealthcareStart: 47-85-5997Xjzxiyk Commentcaffeine: more than 4 cups per dayN[facility] HealthcareStart: 02-17-2010 End: 69-62-4150NekSysuax (finding)[facility] HospitalHow hard is it for you to pay for the very basics like food, housing, medical care, and heatingSomewhat hardNOMS HealthcareDo you feel stress - tense, restless, nervous, or anxious, or unable to sleep at night because yourmind is troubled all the time - these days [OSQ]Only a littleNOMS HealthcareSexual Orientation [facility] NEGATED: Highlighted rowStart: NINFHistory of tobacco usePassive smokerN[facility] Goals DatePatient GoalDesired Activity/StatePersonal health goal Functional Status ZshiAodwoukegeRrztrzEeqkwyab83-43-6011Cfiskscrjk StatusN/AExec[facility]12-10-2024Functional StatusN/A[facility] Clinical Notes 08-30-2021 to 07-22-2025 Note Date & UdxkUlmcBmonosyg10-65-6573 Hospital Discharge instructions Patient Education 07/22/2025 09:50:03 Overactive Bladder, Adult Overactive Bladder, Adult Overactive [...] You may also have very sensitive muscles thatmake your bladder squeeze too soon. This condition [...] your health care provider. General instructions Take zwnx-jrg-nrbnqep and prescription medicines only as told by your health care provider. If you were prescribed an antibiotic medicine, take it as told by your health care provider. Do notstop taking the antibiotic even if you start [...] provider. Document Revised: 07/12/2021 Document Reviewed: 07/12/2021 [employer] Patient Education 2023 [employer]. 07/22/2025 09:50:03 Urinary Incontinence Urinary Incontinence Urinary incontinence refers to a condition in which a person is unable to control where and when topass urine. A person with this condition will urinate involuntarily. This means that the person urinates when he or she does not mean to. What are the causes? This condition may be caused by: Medicines. Infections. Constipation. Overactive bladder muscles. Weak bladder muscles. Weak pelvic floor muscles. These muscles provide support for the bladder, intestine, and, in women,the uterus. Enlarged prostate in men. The prostate is a gland near the bladder. When it gets too big, it can pinch the urethra. With the urethra blocked, the bladder can weaken and lose the ability to empty properly. Surgery. Emotional factors, such as anxiety, stress, or post-traumatic stress disorder (PTSD). Spinal cord injury, nerve injury, or other neurological conditions. Pelvic organ prolapse. This happens in women when organs move out of place and into the vagina. This movement can prevent the bladder and urethra from working properly. What increases the risk? The following factors may make you more likely to develop this condition: Age. The older you are, the higher the risk. Obesity. Being physically inactive. and childbirth. Menopause. Diseases that affect the nerves or spinal cord. Long-term, or chronic, coughing. This can increase pressure on the bladder and pelvic floor muscles. What are the signs or symptoms? Symptoms may vary depending on the type of urinary incontinence you have. They include: A sudden urge to urinate, and passing urine involuntarily before you can get to a bathroom (urge incontinence). Suddenly passing urine when doing activities that force urine to pass, such as coughing, laughing, exercising, or sneezing (stress incontinence). Needing to urinate often but urinating only a small amount, or constantly dribbling urine (overflowincontinence). Urinating because you cannot get to the bathroom in time due to a physical disability, such as arthritis or injury, or due to a communication or thinking problem, such as Alzheimer's disease (functional incontinence). How is this diagnosed? This condition may be diagnosed based on: Your medical history. A physical exam. Tests, such as: ?Urine tests. ?X-rays of your kidney and bladder. ?Ultrasound. ?CT scan. ?Cystoscopy. In this procedure, a health care provider inserts a tube with a light and camera (cystoscope) through the urethra and into the bladder to check for problems. ?Urodynamic testing. These tests assess how well the [...] have and its cause. Treatment may include: Lifestyle changes, such as: ?Quitting smoking. ?Maintaining a healthy weight. ?Staying active. Try to get 150 minutes of moderate-intensity exercise every week. Ask your health care provider which activities are safe for you. ?Eating a healthy diet. ?Avoid high-fat foods, like fried foods. ?Avoid refined carbohydrates like white bread and white rice. ?Limit how much alcohol and caffeine you drink. ?Increase your fiber intake. Healthy sources of fiber include beans, whole grains, and fresh fruitsand vegetables. Behavioral changes, such as: ?Pelvic floor muscle exercises. ?Bladder training, such as lengthening the amount of time between bathroom breaks, or using the bathroom at regular intervals. ?Using techniques to suppress bladder urges. This can include distraction techniques or controlled breathing exercises. Medicines, such as: ?Medicines to relax the bladder muscles and prevent bladder spasms. ?Medicines to help slow or prevent the growth of a man's prostate. ?Botox injections. These can help relax the bladder muscles. Treatments, such as: ?Using pulses of electricity to help change bladder reflexes (electrical nerve stimulation). ?For women, using a biomedical equipment technician to prevent urine leaks. This is a small, tampon-like, disposabledevice that is inserted into the urethra. ?Injecting collagen or carbon beads (bulking agents) into the urinary sphincter. These can help thicken tissue and close the bladder opening. ?Surgery. Follow these instructions at home: Lifestyle Limit alcohol and caffeine. These can fill your bladder quickly and irritate it. Keep yourself clean to help prevent odors and skin damage. Ask your health care provider about special skin creams and cleansers that can protect the skin from urine. Consider wearing pads or adult diapers. Make sure to change them regularly, and always change them right after experiencing incontinence. General instructions Take bmtk-gvp-tmdpgpg and prescription medicines only as told by your health care provider. Use the bathroom about every 3 4 hours, even if you do not feel the need to urinate. Try to empty your bladder completely every time. After urinating, wait a minute. Then try to urinate again. Make sure you are in a relaxed position while urinating. If your incontinence is caused by nerve problems, keep a log of the medicines you take and the times you go to the bathroom. Keep all follow-up visits. This is important. Where to find more information National [place] of Diabetes and Digestive and Kidney Diseases: www.niddk.nih.gov [employer]: www.urologyhealth.org Contact a health care provider if: You have pain that gets worse. Your incontinence gets worse. Get help right away if: You have a fever or chills. You are unable to urinate. You have redness in your groin area or down your legs. Summary Urinary incontinence refers to a condition in which a person is unable to control where and when topass urine. This condition may be caused by medicines, infection, weak bladder muscles, weak pelvic floor muscles, enlargement of the prostate (in men), or surgery. Factors such as older age, obesity, and childbirth, menopause, neurological diseases, andchronic coughing may increase your risk for developing this condition. Types of urinary incontinence include urge incontinence, stress incontinence, overflow incontinence, and functional incontinence. This condition is usually treated first with [...] provider. Document Revised: 05/28/2021 Document Reviewed: 05/28/2021 [employer] Patient Education 2023 [employer]. Follow Up Care 07/18/2025 09:18:17 With:Amalia Stephens PA-C, URL Address: When:Within 2 Month(s) Comments:w/ KATERINA [facility] 09-16-2025 NotePatient Education Obstetrics and Gynecology Overactive Bladder, Adult [...] You may also have very sensitive muscles thatmake your bladder squeeze too soon. This condition [...] health care provider. General instructions ??? Take ibrc-eme-cbboiww and prescription medicines only as told by your health care provider. ??? If you were prescribed an antibiotic medicine, take it as told by your health care provider. Donot stop taking the antibiotic even if you start to feel better. ??? Use any implants or pessary as told by your health care provider. ??? If needed, wear pads to absorb urine leakage. ??? Keep a log to track how much and when you drink, and whe (more content not included)...[facility]09-11-[facility] Evaluation note* Diagnosis Onset Date Resolution Status Admit Date Chronic respiratory failure acuteSeptember 2024 8:49amEssential hypertensionacuteSeptember 2024 8:49amHypokalemiaacuteSeptember 2024 8:49amHypomagnesemiaacuteSeptember 2024 8:49amMajor depression, recurrent, chronicacuteSeptember 2024 8:49amMorbid obesity due to excess caloriesacuteSept2024 8:49am Bilateral lower extremity edemaacuteSeptember 2024 10:02amChronic GERD without esophagitisacuteSeptember 2024 10:02amChronic respiratory failure with hypoxiaacuteSeptember 2024 10:02amCOPD (chronic obstructive pulmonary disease)acuteSeptember 2024 10:02amMorbid obesity due to excess calories acuteSeptember 2024 10:02amNauseaacuteSeptember 2024 10:02amStage 3 chronic kidney diseaseacuteSeptember 2024 10:02am [facility] Work Phone: 1(635) 998-918409-11-2025 Evaluation note* Diagnosis Onset Date Resolution Status Admit Date Chronic respiratory failure acuteSeptember 2024 8:49amEssential hypertensionacuteSeptember 2024 8:49amHypokalemiaacuteSeptember 2024 8:49amHypomagnesemiaacuteSeptember 2024 8:49amMajor depression, recurrent, chronicacuteSeptember 2024 8:49amMorbid obesity due to excess caloriesacuteSept2024 8:49am Bilateral lower extremity edemaacuteSept2024 10:02amChronic GERD without esophagitisacuteSept2024 10:02amChronic respiratory failure with hypoxiaacuteSept2024 10:02amCOPD (chronic obstructive pulmonary disease)acuteSept2024 10:02amDiarrheaacuteSeptember 2024 10:02amMorbid obesity due to excess caloriesacuteSept2024 10:02am NauseaacuteSept2024 10:02amStage 3 chronic kidney diseaseacute August 04, 2025 10:02amChronic respiratory failure with hypoxiaacuteOctober 2024 8:39amEncounter for subsequent annual wellness visit (AWV) in Medicare patientacuteOctober 2024 8:39amMorbid obesity due to excess caloriesacuteOctober 2024 8:39am [facility] Work Phone: [phone]) 458-954109-10-2025 History of Present illness Narrative* Jessica Lazo MD - 07/16/2025 2:45 PM EDT Skin Check Location: Patient requests a skin [...] normal affect, well appearing uses a walker Accompaniedby son A complete skin exam was offered, [...] benign pigmented lesions that occur on sun-exposed andsun-damaged skin. No treatment is necessary. Recommended regular use of broad spectrum sunscreen SPF 30 or higher 3. HISTORY OF SCC (SQUAMOUS CELL CARCINOMA) OF SKIN [facility] No evidence of recurrence at SCC [...] 1 year, skin check documented in this encounterNOChristian [id number] Telephone encounter Note* Telephone Encounter - Kaylene López NP - 05/19/2025 9:26 AM EDT Call patient to let her know a [...] if no help let me know [place] [facility] [id number] Miscellaneous Notes* Telephone Encounter - Kaylene López NP - 05/19/2025 9:26 AM EDT Call patient to let her know a [...] if no help let me know [place] documented in this encounterBarnes-Jewish West County [id number] History of Present illness Narrative* KATE MTZ - 05/19/2025 9:00 AM EDT Yeast infection- under both breast (just started) Yeast infection and sores on bottom due to frequent incontinence Pt has been using vaginal ich cream that helps with the itching but is not protecting her from skinbreak down- she's had it for almost 2 months Fluid filled sores randomly on body. Very sob-02 at 3L * Kaylene López NP - 05/19/2025 9:00 AM EDT Images from the original note were not [...] (HCC) Chronic kidney disease, stage III (moderate) ([facility]) Chronic obstructive pulmonary disease (COPD) (HCC) Colon cancer (HCC) Colorectal cancer ([facility] [...] Morbid obesity with BMI of 40.0-44.9, adult ([facility]) Osteoporosis screening Pneumonia [...] 03/[address] LINN SPINAL FUSION 05/07/2003 [facility] TOTAL HIP ARTHROPLASTY Left 08/30/2019 REMOVED TOTAL [...] Relevant Medications mupirocin (Bactroban) 2 % ointment * Kaylene López NP - 05/19/2025 6:24 AM EDTAssociated Problem(s): Depression Current meds: paxil, and recently added buproprion XL Is doing well continue current dose of meds * Kaylene López NP - 05/19/2025 6:23 AM EDTAssociated Problem(s): Morbid (severe) obesity due to excess calories (CMS-HCC) Discussed with patient their BMI (actual, verses recommended). We have also discussed lifestyle modifications: attempts to perform physical activity as chronic conditions allow, also to monitor dietary intake: increasing protein/fruits/veggies and lowering carb intake (unless contraindicated). Limit sodas, juices, and sugary drinks. D/t her chronic respiratory status increase in physical activity is nearly impossible * Kaylene López NP - 05/19/2025 6:23 AM EDTAssociated Problem(s): Essential hypertension DASH diet Limit caffeine Contact office if chest pain, pressure, dizziness, shortness of breath, swelling legs Recommend slow position changes Current meds: does not take any documented in this encounterBarnes-Jewish West County [id number] History of Present illness Narrative* Kaylene López NP - 04/09/2025 12:37 PM EDTAssociated Problem(s): Depression (CMS/HCC) Current med paxil Will add on medication * KATE MTZ - 04/09/2025 11:00 AM EDT 3L * Kaylene López MOTOR AND GENERATOR BRUSH MAKER - 04/09/2025 11:00 AM EDT Images from the original note were not included. Diana Champion is a 69 y.o. female presents with chief complaint of Hospital Follow-up HPI: Here for hospital follow up: Discharged to [facility] on 03/25/25. Now at home: breathing has [...] centered around her chronic lung condition, freq hospitalizations,feels like burden at times and why is [...] 03/[address] LINN SPINAL FUSION 05/07/2003 [facility] TOTAL HIP ARTHROPLASTY Left 08/30/2019 REMOVED TOTAL [...] and inhaler, trelegy, oxygen Follows with Pulmonology [facility] Depression (CMS/HCC) - Primary Current med paxil [...] oxygen dependant, non invasive vent at night [facility] is managing strategic marketing leader * Kaylene López NP - 04/09/2025 6:31 AM EDTAssociated Problem(s): Morbid (severe) obesity due to excess calories (CMS/HCC) Discussed with patient their BMI (actual, verses recommended). We have also discussed lifestyle modifications: attempts to perform physical activity as chronic conditions allow, also to monitor dietary intake: increasing protein/fruits/veggies and lowering carb intake (unless contraindicated). Limit sodas, juices, and sugary drinks. D/t her chronic respiratory status increase in physical activity is nearly impossible * Kaylene López NP - 04/09/2025 6:31 AM EDTAssociated Problem(s): Chronic respiratory failure with hypoxia (CMS/HCC) Is oxygen dependant, non invasive vent at night [facility] is managing strategic marketing leader * Kaylene López NP - 04/09/2025 6:31 AM EDTAssociated Problem(s): Chronic obstructive pulmonary disease (COPD) ([facility]) Current meds: albuterol nebs and inhaler, trelegy, oxygen Follows with Pulmonology Samsa documented in this encounterBarnes-Jewish West County [id number] Instructions* Patient Instructions* Kaylene López NP - 04/09/2025 11:00 AM EDT Will add on med for depression, will call pt w decision documented in this encounterBarnes-Jewish West County [id number] Hospital Discharge instructions Patient Education 03/24/2025 10:43:28 [...] You may also have very sensitive muscles thatmake your bladder squeeze too soon. This condition [...] your health care provider. General instructions Take hvnm-enh-czcenas and prescription medicines only as told by your health care provider. If you were prescribed an antibiotic medicine, take it as told by your health care provider. Do notstop taking the antibiotic even if you start [...] provider. Document Revised: 07/12/2021 Document Reviewed: 07/12/2021 [employer] Patient Education 2023 [employer]. Follow Up Care 10/15/2024 15:05:18 With:JOSE ALEJANDRO MICHAUD, MAG Hester, URL Address: [address] [place] [place] [address] When:Within 3 Month(s) [facility] 05-19-2025 NotePatient Education Obstetrics and Gynecology Overactive Bladder, Adult [...] You may also have very sensitive muscles thatmake your bladder squeeze too soon. This condition [...] health care provider. General instructions ??? Take eqhg-zqa-lyjkpqy and prescription medicines only as told by your health care provider. ??? If you were prescribed an antibiotic medicine, take it as told by your health care provider. Donot stop taking the antibiotic even if you start to feel better. ??? Use any implants or pessary as told by your health care provider. ??? If needed, wear pads to absorb urine leakage. ??? Keep a log to track how much and when you drink, and whe (more content not included)...[facility]04-14-2025 History of Present illness Narrative* Kaylene López NP - 02/17/2025 9:03 AM EDTAssociated Problem(s): Edema of both lower extremities Elevate legs Compression stockings Fu in 4 weeks, call office if worsening * Kaylene López NP - 02/17/2025 9:01 AM EDTAssociated Problem(s): Spinal stenosis, lumbar region without neurogenic claudication Continue with lyrica and pain mgmt * KATE MTZ - 02/17/2025 8:40 AM EDT Swelling in both legs- knee down 02 is 3L Pt is now on breztri and ohtuvaryre 3mg/2.5ml inhalation suspension Left foot hurts more pt states it feels broken due to the pain * Kaylene López NP - 02/17/2025 8:40 AM EDT Images from the original note were not [...] ferrous sulfate 325 mg, Daily with breakfast Swqzkxacgnd-Knxcbawvu-Ynjwuf (Trelegy Ellipta) 200-62.5-25 MCG/ACT aerosol powder 1 [...] Morbid obesity with BMI of 40.0-44.9, adult ([facility]) Osteoporosis screening [...] 03/[address] LINN SPINAL FUSION 05/07/2003 [facility] TOTAL HIP ARTHROPLASTY Left 08/30/2019 REMOVED TOTAL [...] significantly elevated right sided pressure at 66 [facility] Cardiology Gastroesophageal reflux disease Recommendations: freq [...] oxygen dependant, non invasive vent at night Marianne is managing strategic marketing leader Edema of both lower extremities Elevate legs Compression stockings Fu in 4 weeks, call office if worsening Candidiasis Relevant Medications nystatin (Mycostatin) cream Other Visit Diagnoses RLS (restless legs syndrome) Relevant Medications pramipexole (Mirapex) 0.25 MG tablet * Kaylene López NP - 02/17/2025 6:10 AM EDTAssociated Problem(s): Rheumatoid arthritis, unspecified Has a diagnosis of this * Kaylene López NP - 02/17/2025 6:10 AM EDTAssociated Problem(s): Morbid (severe) obesity due to excess calories (CMS/HCC) Discussed with patient their BMI (actual, verses recommended). We have also discussed lifestyle modifications: attempts to perform physical activity as chronic conditions allow, also to monitor dietary intake: increasing protein/fruits/veggies and lowering carb intake (unless contraindicated). Limit sodas, juices, and sugary drinks. D/t her chronic respiratory status increase in physical activity is nearly impossible * Kaylene López NP - 02/17/2025 6:09 AM EDTAssociated Problem(s): Gastroesophageal reflux disease Recommendations: freq small meals, nothing to eat or drink at least 2 hours prior to bed, limit caffeine, alcohol, as well as spicy foods Meds to limit or avoid if possible: NSAIDS Elevate HOB if possible Current meds: omeprazole * Kaylene López NP - 02/17/2025 6:09 AM EDTAssociated Problem(s): Severe persistent asthma, uncomplicated (CMS/HCC) Is under the care of dr mcclain Current meds for treatment of asthma/COPD: albuterol, trelegy, singulair * Kaylene López NP - 02/17/2025 6:09 AM EDTAssociated Problem(s): Chronic respiratory failure with hypoxia (CMS/HCC) Is oxygen dependant, non invasive vent at night Marianne is managing strategic marketing leader * Kaylene López NP - 02/17/2025 6:08 AM EDTAssociated Problem(s): Chronic obstructive pulmonary disease (COPD) (CMS/HCC) Current meds: albuterol nebs and inhaler, trelegy, oxygen Follows with Pulmonology Marianne * Kaylene López NP - 02/17/2025 6:07 AM EDTAssociated Problem(s): Chronic heart failure with preserved ejection fraction (CMS/HCC) Last ECHO currently in the chart is form 05/29: EF 50%, significantly elevated right sided pressure at 65 [facility] Cardiology documented in this encounterBarnes-Jewish West County [id number] [facility] Chief Complaint: Patient here for 8 mo follow up CAD and hypertension. She's been in and out of [facility] for pneumonia recently. Had echo a [...] breath since then. She has seen her strategic marketing leader. Her chest pain is noncardiac. She has [...] history of Allergic rhinitis, Anemia, Asthma, Cancer ([facility]), Chronic heart failure with preserved ejection fraction ([facility]), Chronic hypoxic respiratory failure ([facility]), Chronic kidney disease, COPD (chronic obstructive pulmonary disease) ([facility]), Coronary artery disease, Depression, Diabetes mellitus ([facility]), Dyspnea, GERD (gastroesophageal reflux disease), Hyperlipidemia, Lumbar spondylosis, Other secondary pulmonary hypertension ([facility]), Pneumonia, Primary osteoarthritis of right hip, Pulmonary [...] mouth every other day., Disp: , Rfl: farwzsymwsl-tslnjxwjz-zplpraex 100-62.5-25 mcg blister with device, , Disp: [...] mg tablet, YOKO (more content not included)... [facility]03-13-2025 History of Present illness Narrative* Kaylene López NP - 01/16/2025 10:33 AM EDTAssociated Problem(s): Depression (CMS/HCC) Currently taking paxil, does feel that she would benefit from a higher dose. D/t depression. Feels overwhelmed at times with all her health issues Increase paroxetine to 40mg daily Fu in 4 weeks * KATE MTZ - 01/16/2025 10:00 AM EDT 3L 02 Wet cough Wheezing Sob Not as tired/fatigue Pt took atb (doxy) this morning Told her about new atb and sputum result. She will vegetable picker new atb after appt. * Kaylene López NP - 01/16/2025 10:00 AM EDT Images from the original note were not included. Diana Champion is a 69 y.o. female presents with chief complaint of No chief complaint on file. HPI: Here for hospital follow up Pneumonia,/covid: sputum culture back pseudomonas , changed doxycycline, to levaquin she will pick this up today She is breathing better, no fever, chills, +weakness, has home health Nurse from [facility] coming today, not sure if any [...] ferrous sulfate 325 mg, Daily with breakfast Yjgpkllqwki-Pffrltwrp-Ekvwes (Trelegy Ellipta) 200-62.5-25 MCG/ACT aerosol powder 1 [...] History: Diagnosis Date Alcohol screening Arthritis Asthma ([facility]) At moderate risk for fall Benign essential HTN ([facility]) Breast cancer screening by mammogram Chronic back pain greater than 3 months duration Chronic heart failure with preserved ejection fraction ([facility]) Chronic kidney disease, stage III (moderate) (HCC) ([facility]) Chronic obstructive pulmonary disease (COPD) ([facility]) Colon cancer ([facility]) Colorectal cancer ([facility]) Contact w and exposure to oth viral communicable diseases COPD exacerbation ([facility]CC) Coronary artery disease ([facility]) Depression ([facility]) Emphysema, unspecified ([facility]) Encounter for gynecological examination (general) (routine) without abnormal findings Essential (primary) hypertension ([facility]CC) Exposure to STD Gastroesophageal reflux disease General deterioration of health HPV in female Hyperlipidemia (CMS/HCC) Hyperuricemia Intertrigo Iron deficiency anemia Low back pain Morbid obesity with BMI of 40.0-44.9, adult ([facility]) Osteoporosis screening [...] 03/[address] LINN SPINAL FUSION 05/07/2003 [facility] TOTAL HIP ARTHROPLASTY Left 08/30/2019 REMOVED TOTAL [...] daily for 7 day Recent hospitalization to [facility]: back to back, 01/02/25 and 01/08/25 I have reviewed her hospital notes, labs, discharge info as well * Kaylene López NP - 01/16/2025 6:35 AM EDTAssociated Problem(s): Morbid (severe) obesity due to excess calories (CMS/HCC) Discussed with patient their BMI (actual, verses recommended). We have also discussed lifestyle modifications: attempts to perform physical activity as chronic conditions allow, also to monitor dietary intake: increasing protein/fruits/veggies and lowering carb intake (unless contraindicated). Limit sodas, juices, and sugary drinks. D/t her chronic respiratory status increase in physical activity is nearly impossible * Kaylene López NP - 01/16/2025 6:34 AM EDTAssociated Problem(s): Chronic kidney disease, stage 3a (HCC) (CMS/HCC) Monitor labs Used to see dr bermudez, told she did not have to return to see him * Kaylene López NP - 01/16/2025 6:34 AM EDTAssociated Problem(s): Other secondary pulmonary hypertension (CMS/HCC) Noted on ECHO findings 05/29 * Kaylene López NP - 01/16/2025 6:33 AM EDTAssociated Problem(s): Essential hypertension (CMS/HCC) DASH diet Limit caffeine Contact office if chest pain, pressure, dizziness, shortness of breath, swelling legs Recommend slow position changes Current meds: does not take any * Kaylene López NP - 01/16/2025 6:33 AM EDTAssociated Problem(s): Chronic heart failure with preserved ejection fraction (CMS/HCC) Last ECHO currently in the chart is form 05/29: EF 50%, significantly elevated right sided pressure at 65 [facility] Cardiology * Kaylene López NP - 01/16/2025 6:31 AM EDTAssociated Problem(s): Severe persistent asthma, uncomplicated (CMS/HCC) Is under the care of dr mcclain Current meds for treatment of asthma/COPD: albuterol, trelegy, singulair * Kaylene López NP - 01/16/2025 6:30 AM EDTAssociated Problem(s): Pneumonia due to infectious organism Respiratory panel: culture pseudomonas Was sent home on doxy, will have her stop this, and start levoquin 750mg daily for 7 day Recent hospitalization to [facility]: back to back, 01/02/25 and 01/08/25 I have reviewed her hospital notes, labs, discharge info as well * Kaylene López NP - 01/16/2025 6:28 AM EDTAssociated Problem(s): Chronic respiratory failure with hypoxia (CMS/HCC) Is oxygen dependant, non invasive vent at night samsa documented in this [facility]03-13-2025 Instructions* Patient Instructions* Kaylene López NP - 01/16/2025 10:00 AM [...] and OT for home documented in this [facility]03-12-2025 History of Present illness Narrative* Kaylene López NP - 01/15/2025 6:58 PM EDTAssociated Problem(s): Pneumonia due to infectious organism Respiratory panel: culture pseudomonas Was sent home on doxy, will have her stop this, and start levoquin 750mg daily for 7 day documented in this encounterBarnes-Jewish West County [id number] History of Present illness Narrative* Kaylene López NP - 01/02/2025 3:28 PM ESTAssociated Problem(s): Flu-like symptoms Neg, still strong clinical suspicion for flu, d/t severe pulmonary conditions and weakness will send her to [facility] ER for evaluation DD: pneumonia, covid, flu, RSV * Kaylene López NP - 01/02/2025 3:26 PM ESTAssociated Problem(s): Chronic respiratory failure with hypoxia (CMS/HCC) Oxygen level 88-90% w walking, normal 94-95% w oxygen * Kaylene López NP - 01/02/2025 3:25 PM ESTAssociated Problem(s): Chronic obstructive pulmonary disease (COPD) (CMS/HCC) Marianne strategic marketing leader * KATE MTZ - 01/02/2025 2:40 PM EST Pt 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 * Kaylene López, MOTOR AND GENERATOR BRUSH MAKER - 01/02/2025 2:40 PM EST Images from the original note were not [...] others have been sick [facility] strategic marketing leader Flu Symptoms This is a new problem. Episode onset: 2 days. The problem occurs constantly. The problem has been gradually worsening. Associated symptoms include anorexia, congestion, coughing, fatigue, a fever, headaches, myalgias, a sore throat and weakness. Pertinent negatives include no abdominal pain, arthralgias, chest pain, chills, joint swelling, nausea, rash, vertigo, visual change or vomiting. Nothingaggravates the symptoms. SUBJECTIVE: MEDICATIONS: Current Outpatient Medications Medication Instructions albuterol HFA 90 mcg/act inhaler 2 puffs, Every 4 hours PRN albuterol 2.5 mg, Every 6 hours PRN baclofen (LIORESAL) 10 mg, Oral, 3 times daily ferrous sulfate 325 mg, Daily with breakfast Dpqfrmaveju-Bfwgofdey-Frhrlk (Trelegy Ellipta) 200-62.5-25 MCG/ACT aerosol powder 1 [...] 03/[address] LINN SPINAL FUSION 05/07/2003 [facility] TOTAL HIP ARTHROPLASTY Left 08/30/2019 REMOVED TOTAL [...] Visit Chronic obstructive pulmonary disease (COPD) (CMS/HCC) [facility] strategic marketing leader Morbid (severe) obesity due to excess calories [...] conditions and weakness will send her to [facility] ER for evaluation DD: pneumonia, covid, flu, RSV Relevant Orders STATUS COVID-19/FLU (Completed) * Kaylene López NP - 01/02/2025 7:25 AM ESTAssociated Problem(s): Morbid (severe) obesity due to excess calories (CMS/HCC) Discussed with patient their BMI (actual, verses recommended). We have also discussed lifestyle modifications: attempts to perform physical activity as chronic conditions allow, also to monitor dietary intake: increasing protein/fruits/veggies and lowering carb intake (unless contraindicated). Limit sodas, juices, and sugary drinks. * Kaylene López NP - 01/02/2025 7:25 AM ESTAssociated Problem(s): Urge incontinence Take vesicare * Kaylene López NP - 01/02/2025 7:25 AM ESTAssociated Problem(s): Chronic kidney disease, stage 3a (HCC) (CMS/HCC) Monitor labs * Kaylene López NP - 01/02/2025 7:24 AM ESTAssociated Problem(s): Malignant neoplasm of rectosigmoid junction (CMS/HCC) Hx of this * Kaylene López NP - 01/02/2025 7:24 AM ESTAssociated Problem(s): Gastroesophageal reflux disease Recommendations: freq small meals, nothing to eat or drink at least 2 hours prior to bed, limit caffeine, alcohol, as well as spicy foods Meds to limit or avoid if possible: NSAIDS Elevate HOB if possible Current meds: omeprazole * Kaylene López NP - 01/02/2025 7:23 AM ESTAssociated Problem(s): Essential hypertension (CMS/HCC) DASH diet Limit caffeine Contact office if chest pain, pressure, dizziness, shortness of breath, swelling legs Recommend slow position changes Current meds: does not take any documented in this encounterTonya Ville [id number] History of Present illness Narrative* Jessica Lazo MD - 12/17/2024 3:00 PM EST Skin Check Location: Patient requests a skin examination of the face and arms Dermatologic history: history of Squamous Cell Carcinoma Last visit: First skin check Established patient All pertinent medical history, medications, and allergies were reviewed. General Exam: alert, oriented to person, place, and time, normal affect, well appearing uses a walker Accompaniedby son A complete skin exam was offered, [...] benign pigmented lesions that occur on sun-exposed andsun-damaged skin. No treatment is necessary. Recommended regular use of broad spectrum sunscreen SPF 30 or higher Next Visit: [address] [facility]02-11-2025 History of Present illness Narrative* CHRISTINE Alexander - 12/17/2024 8:30 AM EST Images from the original note were not included. HISTORY OF PRESENT ILLNESS: EST PT Diana Champion is an 69 y.o. @ female. EST PT HERE FOR YEARLY REACHECK RT TKA ~6YRS 2MO (10/18/18) - XRAY RT KNEE & RT HIP TODAY EPIC 12/17/24 XRAY EXA 11/16/22 XRAY NOMRajendra WALLER (EXA) 11/18/20 NO BONE SCAN NO [...] ferrous sulfate 325 mg, Daily with breakfast Gtveprswlvi-Mgroqydxo-Lpuaup (Trelegy Ellipta) 200-62.5-25 MCG/ACT aerosol powder 1 [...] x-ray of both the right knee and righthip was performed at the bedside today. If she is not a surgical candidate for right total hip arthroplasty, conservative measures with pain management will be necessary. Pt will consult with her Deputy Building Guard to see if she would be a [...] for requiring urgent evaluation. documented in this encounterBarnes-Jewish West County [id number] History of Present illness Narrative* Jessica Lazo MD - 12/13/2024 11:00 AM EST Images from the original note were not [...] skin of chest Chest - Medial (Center) Road Runner macule at the biopsy site. Destr of lesion Complexity: simple Destruction method: cryotherapy Informed consent: discussed and consent obtained Informed consent comment: The risks of the procedure were discussed, including, but not limited to risks of scarring, darker or central office operator pigmentary changes, recurrence, infection, and incomplete [...] or tenderness. Additional details: Previous accession number: [id number] Discussed treatment options excision vs cryotherapy in detail. Patient opted for cryotherapy. Cryotherapy completed today, see procedure note. Return to clinic prior to next scheduled visit for any signs or symptoms of recurrence, reviewed the signs and symptoms. Recommended 6 month skin exam. Next Visit: as scheduled documented in this encounterBarnes-Jewish West County [id number] History of Present illness Narrative* Aida Reese NP - 11/28/2024 1:37 PM ESTAssociated Problem(s): Chronic obstructive pulmonary disease (COPD) ([facility]) Was admitted to [facility] for COPD with acute exacerbation. Was [...] her outpatient sooner for hospital follow up. * Aida Reese NP - 11/28/2024 1:00 PM EST Images from the original note were not included. Subjective Patient ID: Diana Champion is a 69 y.o. female who presents for Hospital Follow-up. HPI Was admitted to [facility] for COPD with acute exacerbation. Was [...] Neurological: Negative for dizziness, tremors, syncope, weakness, light- headedness and headaches. Psychiatric/Behavioral: Negative for decreased concentration and suicidal ideas. The patient is notnervous/anxious. Hematological: Does not bruise/bleed easily. Endocrine: Negative [...] This Visit Chronic obstructive pulmonary disease (COPD) ([facility]) - Primary Was admitted to [facility] for COPD with acute exacerbation. Was [...] for hospital follow up. documented [facility]01-23-2025 Instructions* Patient Instructions* Aida Reese NP - 11/28/2024 1:[address] Mcclain's office to see if he wants to see you for hospital follow up sooner than January. Take and finish all medications as directed. documented in this [facility]01-07-2025 History of Present illness Narrative* Aida Reese NP - 11/12/2024 11:08 AM ESTAssociated Problem(s): Chronic obstructive pulmonary disease (COPD) ([facility]) 5 days [...] patient to be seen in Emergency Room. * Aida Reese NP - 11/12/2024 10:30 AM EST Images from the original note were not [...] concentration and suicidal ideas. The patient is notnervous/anxious. Hematological: Does not bruise/bleed easily. Endocrine: Negative [...] This Visit Chronic obstructive pulmonary disease (COPD) ([facility]) - Primary [...] (Valtrex) 1 g tablet documented in this [facility]01-07-2025 Instructions* Patient Instructions* Aida Reese NP - 11/12/2024 10:30 AM [...] allergy medication once daily. Flonase nasal spray 1-2squirts in each nostril at night. Tylenol for fever and body aches. WORSENING SYMPTOMS, CHEST PAIN, OR SHORTNESS OF BREATH, GO TO THE NEAREST EMERGENCY DEPARTMENT. documented in this [facility]12-12-2024 Note Attestation signed by Emelia Yoo MD [...] Age: 69 y.o. : 1955 Account No.: [id number] Referring physician: Dr. Bo Mcclain Chief complaint: Recurreny pneumonia HPI Diana Champion is a 69 y.o. female with PMHx of chronic hypoxic respiratory failure on 3L home O2, tracheobronchomalacia who is presenting to clinic for follow up. Patient was previously referred by Dr. Bo Mcclain of [facility] in June of 2024. Patient had been having frequent pneumonias requiring hospitalization thought to be secondary to dynamic airway collapse. Therefore we performed bronchoscopy with airway inspection on 07/02/2024 which showed severe tracheobronchomalacia with mucous plugging. She subsequently followed up post procedure and different treatment options were discussed. She was hesitant to undergo APC or tracheal bronchoplasty at [facility] and instead opted to trial CPAP [...] years. 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 Her family history is positive for COPD [...] Diagnosis Date Allergic rhinitis Anemia Asthma Cancer ([facility]) Chronic heart failure with preserved ejection fraction ([facility] Chronic hypoxic respiratory failure ([facility] Chronic kidney disease COPD (chronic obstructive pulmonary disease) ([facility]) Coronary artery disease Depression Diabetes mellitus ([facility]) Dyspnea GERD (gastroesophageal reflux disease) Hyperlipidemia Lumbar spondylosis Other secondary pulmonary hypertension ([facility]) Pneumonia Primary [...] 325 mg by bessie (more content not included)...[facility]12-10-2024 Hospital Discharge instructions Patient Education 10/15/2024 16:56:39 [...] You may also have very sensitive muscles thatmake your bladder squeeze too soon. This condition [...] your health care provider. General instructions Take fdmf-slc-tvibnju and prescription medicines only as told by your health care provider. If you were prescribed an antibiotic medicine, take it as told by your health care provider. Do notstop taking the antibiotic even if you start [...] provider. Document Revised: 07/12/2021 Document Reviewed: 07/12/2021 [employer] Patient Education 2023 [employer]. Follow Up Care 10/11/2024 14:37:09 With:JOSE ALEJANDRO MICHAUD, MAG Hester, URL Address: [address] [place] [address]. [place] [address] When:Within 3 Month(s) [facility] 12-10-2024 NoteUrology Office/Clinic Note Chief Complaint Aida Reese NP referral [...] 235.894 lb BMI: 40.27 Assessment/Plan CHF - [facility] [place] CKD - Joana COPD/Pulm - Sam/Caneloballi. Required hospitalization in Aug. Colorectal CA 2003 [...] at some point. Pt states it stopped workingabout 3 yrs ago. No longer can jsut [...] profile, but most insurances won't cover without tryinganticholinergics first. I explained the most common side effects are dry mouth, dry eyes, and constipation. We discussed OTC options to help with these side effects. We did discuss that there is a documented potential side effect of mental status changes/confusion in the elderly, but that this riskis quite low. Pt and I agree that [...] could include cysto, urodynamics, Botox, SNM. Orders: 69265 Measure Post Void residual urine and/or bladder capacity by US- non-imaging E&M of New Patient Moderate 45-59 Min 33820 Urine Culture Urnls Dip Stick Auto w/o Microscopy POC 19739 Follow-up With When Contact Information JOSE ALEJANDRO MICHAUD, MAG Hester, URL In 3 months [address] [place] [address] Additional Instructions: Patient Education Overactive [...] 1 drop(s) Allergies f (more content not included)...[facility] HospitalComment on above: Result Comment: Electronically Signed By: MAG BLOUNT PA-C.victorina\Date and Time Signed: 10/15/2416:57 [id number] NotePatient Education Obstetrics and Gynecology Overactive Bladder, Adult [...] You may also have very sensitive muscles thatmake your bladder squeeze too soon. This condition [...] health care provider. General instructions ??? Take gfid-lng-fncrupp and prescription medicines only as told by your health care provider. ??? If you were prescribed an antibiotic medicine, take it as told by your health care provider. Donot stop taking the antibiotic even if you start to feel better. ??? Use any implants or pessary as told by your health care provider. ??? If needed, wear pads to absorb urine leakage. ??? 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 Area is closed, raised, and reddened with thin scab in place. Referral sent to Dermatology. * Aida Reese NP - 10/07/2024 3:00 PM ESTAssociated Problem(s): Chronic respiratory failure with hypoxia (CMS/HCC) Following closely with Dr. Mcclain. Recent exacerbation requiring hospitalization in August. Feels symptoms have improved, is still requiring 3L O2 NC baseline. Currenlty taking Trelegy, Albuterol, Singulai, Mucinex. * Aida Reese NP - 10/07/2024 2:54 PM ESTAssociated Problem(s): Chronic kidney disease, stage III (moderate) (HCC) (CMS/HCC) Follows with Dr. Bermudez. Monitor CMP, avoid nephrotoxic agents. * Aida Reese NP - 10/07/2024 2:49 PM ESTAssociated Problem(s): Morbid obesity with BMI of 40.0-44.9, adult (CMS/HCC) Discussed with patient their BMI (actual, verses recommended). We have also discussed lifestyle modifications: attempts to perform physical activity as chronic conditions allow, also to monitor dietary intake: increasing protein/fruits/veggies and lowering carb intake (unless contraindicated). Limit sodas, juices, and sugary drinks. * Aida Reese NP - 10/07/2024 2:30 PM EST Images from the original note were not included. Subjective Patient ID: Diana Champion is a 69 y.o. female who presents for Follow-up (She presents today for a3 month follow up for her asthma. ). HPI Specialists: Pulmonology- Dr. Mcclain and Dr. Yoo Cardiology- [facility] Ortho- Dr. Corrales Nephrology- Dr. Sky [...] Neurological: Negative for dizziness, tremors, syncope, weakness, light- headedness and headaches. Psychiatric/Behavioral: Negative for decreased concentration and suicidal ideas. The patient is notnervous/anxious. Hematological: Does not bruise/bleed easily. Endocrine: Negative [...] Chronic kidney disease, stage III (moderate) (HCC) ([facility]) Follows with Dr. Bermudez. Monitor CMP, avoid [...] to Urology Chronic respiratory failure with hypoxia ([facility]) Following closely [...] Ambulatory referral to Dermatology documented [facility]10-29-2024 Telephone encounter Note* Telephone Encounter - Rukhsana Rutherford MA - 09/03/2024 11:22 AM EDT Pt requesting a refill on her Omeprazole BECK:08/19/2024 NOV:10/09/2024 [facility] HospitalZmosilsrjw46-86-3036 Miscellaneous Notes* Telephone Encounter - Rukhsana Rutherford MA - 09/03/2024 11:22 AM EDT Pt requesting a refill on her Omeprazole BECK:08/19/2024 NOV:10/09/2024 documented in this encounterBarnes-Jewish West County HospitalDuhitnzvuy33-00-8307 Telephone encounter Note* Telephone Encounter - Mag Byers - 08/22/2024 1:08 PM EDT Patient called in saying you wanted her to do a stool sample, but she has not gotten an order for that, so she wasn't sure when she was supposed to do that. Also her pregabalin needs refilled but [facility]. MAYANK [place] [id number] Miscellaneous Notes* Telephone Encounter - Mag Byers - 08/22/2024 1:08 PM EDT Patient called in saying you wanted her to do a stool sample, but she has not gotten an order for that, so she wasn't sure when she was supposed to do that. Also her pregabalin needs refilled but [facility]said that [facility] time. MAYANK * Telephone Encounter - Mag Byers - 08/13/2024 2:01 PM EDT Patient's home health nurse called saying she [...] spelled that right) nurse phone number is [phone] or you can contact patient she said. JN documented in this encounterBarnes-Jewish West County HospitalHoskbibiuf09-02-8645 History of Present illness Narrative* Bernadine Garduno - 08/19/2024 11:30 AM EDT Last Monday left hospital and has been having diarrhea about 6 times a day. * Aida Reese NP - 08/19/2024 11:30 AM EDT Images from the original note were not included. Subjective Patient ID: Diana Champion is a 69 y.o. female who presents for No chief complaint on file.. [facility] Hospital follow up; Was seen at [facility] 08/08/24-08/12/24 ARF; Was discharged home on [...] Neurological: Negative for dizziness, tremors, syncope, weakness, light- headedness and headaches. Psychiatric/Behavioral: Negative for decreased concentration and suicidal ideas. The patient is notnervous/anxious. Hematological: Does not bruise/bleed easily. Endocrine: Negative [...] Relevant Orders Clostridium difficile,EIA documented in this encounterBarnes-Jewish West County HospitalVizcwvvvco93-56-4621 Instructions* Patient Instructions* Aida Reese NP - 08/19/2024 11:30 AM EDT Continue Augmentin. Start taking OTC probiotics Have stool culture completed to test for C.Difficile. If negative continue ATB regimen as directed. If positive we will treat accordingly. Keep all follow up appointments as scheduled. documented in this encounterBarnes-Jewish West County HospitalAzskmvgxzk60-65-0217 Note Gram Stain Evaluation This specimen is of good quality and is acceptable for routine [facility] HospitalWpkbtvaacd81-42-5594 NoteGRAM STAIN EVALUATIONbacterial culture.[facility], [place], [facility] by [facility] HealthJrbhmonokl59-20-5623 Telephone encounter Note* Telephone Encounter - Mag Byers - 08/13/2024 2:01 PM EDT Patient's home health nurse called saying she [...] spelled that right) nurse phone number is [phone] or you can contact patient she said. JN [facility] HospitalXsgqaordvk10-02-8748 Telephone encounter Note* Telephone Encounter - Tony Butts MA - 07/16/2024 4:08 PM EDT Pt informed of lab results and provider recommendations. Pt does do chair exercises four times a week and walks (with walker) but due to her health conditions she is limited. Pt is in a wheelchair with very limited ambulation -SCR [facility] HospitalThqbsxlxvg95-81-5566 Miscellaneous Notes* Telephone Encounter - Tony Butts MA - 07/16/2024 4:08 PM EDT Pt informed of lab results and provider recommendations. Pt does do chair exercises four times a week and walks (with walker) but due to her health conditions she is limited. Pt is in a wheelchair with very limited ambulation -SCR * Telephone Encounter - Tony Butts MA - 07/16/2024 4:06 PM EDT ----- Message from Aida Reese sent at [...] products, vegetables, fruits, whole grains, legumes, and nuts.Decrease your dietary intake of sodium, sweets, sweetened beverages, and red meats. In addition, increase your exercise to include 150 minutes per week of moderate- intensity, and 75 minutes per week of vigorous aerobic activity. Thank you -BF ----- Message ----- From: Interface, Lab Results In Sent: 07/12/2024 9:29 AM EDT To: Aida Reese NP documented in this encounterBarnes-Jewish West County HospitalFhtbelmzet32-23-5059 Telephone encounter Note* Telephone Encounter - Tony Butts MA - 07/16/2024 4:06 PM EDT ----- Message from Aida Reese sent at [...] products, vegetables, fruits, whole grains, legumes, and nuts.Decrease your dietary intake of sodium, sweets, sweetened beverages, and red meats. In addition, increase your exercise to include 150 minutes per week of moderate- intensity, and 75 minutes per week of vigorous aerobic activity. Thank you -BF ----- Message ----- From: Interface, Lab Results In Sent: 07/12/2024 9:29 AM EDT To: Aida Reese NP [facility] [id number] Note Attestation signed by Emelia Yoo MD [...] Age: 68 y.o. : 1955 Account No.: [id number] HPI Chief Complaint: follow up after recent [...] years. 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 Her family history is positive for COPD [...] was initiated by the patient and conducted kxz-dyic-iu-face with use of audio-only real time telephone [...] by mouth every other day. Historical Provider, aepybyzavmp-usrnsmqbr-gyqdryhl 100-62.5-25 mcg blister with device Historical Provider, [...] multivitamin (Theragran-M) 9 mg (more content not included)...[facility]09-05-2024 History of Present illness Narrative* Aida Reese NP - 07/11/2024 8:57 AM EDTAssociated Problem(s): Morbid obesity with BMI of 40.0-44.9, adult ([facility]) Discussed with patient their BMI (actual, verses recommended). We have also discussed lifestyle modifications: attempts to perform physical activity as chronic conditions allow, also to monitor dietary intake: increasing protein/fruits/veggies and lowering carb intake (unless contraindicated). Limit sodas, juices, and sugary drinks. * Aida Reese NP - 07/11/2024 8:56 AM EDTAssociated Problem(s): Severe persistent asthma without complication (CMS/HCC) Currently taking Trelegy Singulair Albuterol Was seen on 06/12/24 for Hospital follow up. Is following closely with Pulmonology; Tracheobronchomalacia * Aida Reese NP - 07/11/2024 8:55 AM EDTAssociated Problem(s): Hyperlipidemia (CMS/HCC) Currently not on any medications: Lifestyle and dietary modifications. Recheck lipid pane today. * Aida Reese NP - 07/11/2024 8:54 AM EDTAssociated Problem(s): Chronic heart failure with preserved ejection fraction (CMS/HCC) Follows Cardiology- [facility] Was seen in May 2024 Lasix 20mg * Aida Reese NP - 07/11/2024 8:54 AM EDTAssociated Problem(s): Benign essential HTN (CMS/HCC) Currently not taking any medications. Bp is well controlled. Averages 120's-130's. * Aida Reese NP - 07/11/2024 8:30 AM EDT Images from the original note were not included. Subjective Patient ID: Diana Champion is a 68 y.o. female who presents for Follow-up. HPI Specialists: Pulmonology- Dr. Mcclain and Dr. Yoo Cardiology- [facility] [place] Ortho- Dr. Corrales Nephrology- Dr. Sky Was seeing Urology 5 years ago for urinary retention. Now is having mixed incontinence. Does not want referral today, would like to revisit at next visit. Was seen on 06/12/24 for Hospital follow up. Is following closely with Pulmonology; Tracheobronchomalacia HTN: Currently not taking any medications. Bp is well controlled. Averages 120's-130's. HFpEF: Follows Cardiology- [facility] Was seen in May 2024 Lasix 20mg HLD: Currently not on any medications: Lifestyle and dietary modifications. Recheck lipid pane today. Review of Systems Constitutional: Negative for activity change, appetite change, chills, fatigue, fever, night sweatsand unexpected weight change. HENT: Negative for congestion, [...] Neurological: Negative for dizziness, tremors, syncope, weakness, light- headedness, numbness and headaches. Psychiatric/Behavioral: Negative for sleep [...] preserved ejection fraction (CMS/HCC) Follows Cardiology- [facility] Was seen in May 2024 Lasix [...] and differential Severe persistent asthma without complication ([facility]) Currently taking Trelegy Singulair Albuterol Was seen on 06/12/24 for Hospital follow up. Is following closely with Pulmonology; Tracheobronchomalacia documented in this encounterBarnes-Jewish West County HospitalJnizgxdtxs80-05-4423 Instructions* Patient Instructions* Aida Reese NP - 07/11/2024 8:30 AM EDT FASTING labs ordered. Nothing to eat or drink for 12 hours prior to blood draw. Water and black coffee ok. documented [facility]08-27-2024 NotePatient: Diana Champion Pre-sedation Evaluation: Sedation necessary for: Analgesia Requesting service: Pulmonary History of Present Illness: Refer to H &P INFORMATICA/Current Medications: Reviewed Recent sedation/surgery (24 hours): No Review of Systems: Negative NPO guidelines met: Yes Physical Exam: Airway Mallampati: II Neck ROM: full Cardiovascular (-) murmur, friction rub, carotid bruits Dental Pulmonary (+) on nasal cannula (-) tachypnea, accessory muscle use (-) wheezes, rales Plan: ASA 3 Moderate Proceed with consious sedation for Bronchoscopy and BALUnDayton [facility]08-27-2024 Note Attestation signed by Ghulam Petersen MD at 07/08/2024 2:41 PM I was present and supervised the entire procedure PULMONARY & CRITICAL CARE MEDICINE PROCEDURE NOTE FLEXIBLE FIBEROPTIC BRONCHOSCOPY INDICATIONS AND HISTORY: Please refer to H&P PROCEDURE: Flexible Fiberoptic Bronchoscopy with airway inspection ANESTHESIA: Conscious sedation PREPROCEDURE DIAGNOSIS: Recurrent pneumonias, concern for dynamic airway collapse, chronic cough POSTPROCEDURE DIAGNOSIS: Severe tracheobronchomalacia PROCEDURE TRIM STENCIL MAKER: Goran Canseco ATTENDING PHYSICIAN: Dr. Ghulam Petersen [...] by trained RN and supervised by the Deputy Building Guard. Continuous monitoring of heart rate, respiratory rate, [...] in 1-2 weeks for treatment options for [facility]omalacia[facility] Note Attestation signed by Emelia Yoo MD [...] may be an additional personal documentation from ca. Pulmonary Telemedicine Visit Note Patient: Diana Champion Age: 68 y.o. : 1955 Account No.: [id number] Referring physician: Dr. oB Mcclain Chief complaint: Recurreny pneumonia HPI Diana Champion is a 68 y.o. female with PMHx of reportedly COPD, chronic hypoxic respiratory failure on 2L home O2 who is presenting to clinic as a new patient after being referred by Dr. Bo Baker of [facility]. Patient has been admitted 4 times over [...] years. 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 Her family history is positive for COPD [...] Past Medical History: Diagnosis Date Asthma Cancer (CMS/HCC) COPD (chronic obstructive pulmonary disease) (CMS/HCC) Coronary [...] mouth every other day. Yes Historical Provider, mpmxmilrwhm-tayogehro-gjydlnic 100-62.5-25 mcg blister with device Yes Historical [...] mEq ER ta (more content not included)... [facility] Chief Complaint: Patient here for 1 year follow up CAD and hypertension. She was recently discharged from [facility] for Covid-19. She says hydrochlorothiazide was [...] breath since then. She has seen her strategic marketing leader. Her chest pain is noncardiac. She has [...] a past medical history of Asthma, Cancer ([facility]), COPD (chronic obstructive pulmonary disease) ([facility]), Coronary artery [...] mouth every other day., Disp: , Rfl: [id number]-[id number] 100-62.5-25 mcg blister with device, , Disp: [...] Physical Examination: GENERAL: a (more content not included)...[facility] 09-07-2023 Evaluation note* Encounter Date Diagnosis Assessment Notes Treatment Notes Treatment Clinical Notes Sep, Hypomagnesemia (ICD-10 - E83.42) [employer] Other 10-23-2023 Evaluation note* Encounter Date Diagnosis Assessment Notes Treatment Notes Treatment Clinical Notes Aug, Nico hy kid w cr kid I-IV (ICD-10 - I12.9) [employer] Other 10-12-2023 Evaluation note* Encounter Date Diagnosis Assessment Notes Treatment Notes Treatment Clinical Notes Aug, Nico hy kid w cr kid I-IV (ICD-10 - I12.9) Blood pressure is uncontrolled. She appears to be euvolemic. Increase losartan 100 mg daily Aug,hronic kidney disease, stage III (moderate) (ICD-10 - N18.30)She has a CKD due to the longstanding hypertension and partial recovery from JEANNE. Her baseline serum creatinine is 1.1-1.3 mg/dL. Her renal ultrasound showed unremarkable kidneys. I discussed with her the importance of good HTN control to surround the progression of disease. Aug,Secondary hyperparathyroidism (ICD-10 - N25.81)She has a secondary hyperparathyroidism due to the CKD. Her Calcium, phosphorus and vitamin D are wi thin the goal. Continue oral vitamin D. Aug,Hyperuricemia (ICD-10 - E79.0)She has a hyperuricemia but denies any gout flare. We will monitor it and and start allopurinol in future if she has persistently high uric acid or gout. Aug,Hypokalemia (ICD-10 - E87.6)She has hypokalemia due to the diuretic induced renal potassium wasting. Advised to liberalize the potassium intake in her diet. Also increase the dose of losartan which will make the potassium normal. Aug,Hypomagnesemia (ICD-10 - E83.42)She has hypomagnesemia due to the diuretic induced renal magnesium wasting and PPI induced GI losses. Continue oral Magnesium [employer] Other 05-19-2023 NotePROCEDURE: XR HIP RT 2 3V W PELVIS HISTORY: Pain in right hip joint , chronic COMPARISON: XR L-spine 02/26/2019, XR left hip with pelvis 03/11/2017 FINDINGS: BONES:Complete loss of the right hip joint space with [id number] articulation, subchondral sclerosis and cysts, and large periarticular degenerative osteophytes. No fracture or dislocation. Left hip replacement. Mechanical fusion of L5-S1 and moderate dextroscoliosis of lumbar spine. SOFT TISSUES:No visible soft tissue swelling. EFFUSION:None visible. OTHER: Negative. IMPRESSION: 1. Marked degenerative joint disease of the right hip; progressed since prior study. 2. Stable surgical changes. Electronically authenticated by: STEPH GRANADOS Date: 2023-03-24 12:55[facility]04-27-2023 Evaluation note* Encounter Date Diagnosis Assessment Notes Treatment Notes Treatment Clinical Notes Feb, Nico guillen kid w cr kid I-IV (ICD-10 - I12.9) Blood pressure is controlled. She appears to be euvolemic. Continue current medication. Feb,hronic kidney disease, stage III (moderate) (ICD-10 - N18.30)She has a CKD due to the longstanding hypertension and partial recovery from JEANNE. Her baseline serum creatinine is 1.1-1.3 mg/dL. Her renal ultrasound showed unremarkable kidneys. I discussed with her the importance of good HTN control to surround the progression of disease. Feb,Secondary hyperparathyroidism (ICD-10 - N25.81)She has a secondary hyperparathyroidism due to the CKD. Her Calcium, phosphorus and vitamin D are wi thin the goal. Continue oral vitamin D. Feb,Hyperuricemia (ICD-10 - E79.0)She has a hyperuricemia but denies any gout flare. We will monitor it and and start allopurinol in future if she has persistently high uric acid or gout. Feb,Hypokalemia (ICD-10 - E87.6)She has hypokalemia due to the diuretic induced renal potassium wasting. Continue oral potassium. Feb,Hypomagnesemia (ICD-10 - E83.42)She has hypomagnesemia due to the diuretic induced renal magnesium wasting and PPI induced GI losses. Continue oral Magnesium [employer] Other 02-02-2023 [facility]* Encounter Date Diagnosis Assessment Notes Treatment Notes Treatment Clinical Notes Nov, Hypokalemia (ICD-10 - E87.6) Nov,Hypomagnesemia (ICD-10 - E83.42) [employer] Other 10-04-2022 Evaluation note* Encounter Date Diagnosis Assessment Notes Treatment Notes Treatment Clinical Notes Aug, Nico hy kid w cr kid I-IV (ICD-10 - I12.9) Blood pressure is controlled. She appears to be euvolemic. Continue current medication. Her potassium is low normal. I have advised her to increase her potassium intake in her diet Aug,hronic kidney disease, stage III (moderate) (ICD-10 - N18.30)She has a CKD due to the longstanding hypertension and partial recovery from JEANNE. Her baseline serum creatinine is 1.1-1.3 mg/dL. Her renal ultrasound showed unremarkable kidneys. I discussed with her the importance of good HTN control to surround the progression of disease. Aug,econdary hyperparathyroidism (ICD-10 - N25.81)She has Vit D deficiency but . I have advised her to take oral Vit D 1000 units PO daily. Her PTH is significantly calculable but she has a low calcium and phosphorus. Aug,Hyperuricemia (ICD-10 - E79.0)She has a hyperuricemia but denies any gout flare. We will monitor it and and start allopurinol in future if she has persistently high uric acid or gout. Aug,Hypokalemia (ICD-10 - E87.6)She has hypokalemia due to the diuretic induced renal potassium wasting. Continue oral potassium. Aug,Hypomagnesemia (ICD-10 - E83.42)She has hypomagnesemia due to the diuretic induced renal magnesium wasting and PPI induced GI losses. I have prescribe oral Magnesium Aug,therPatient reported that she will change her insurance and will continue to follow with me. She was informed that our office does not accept her new insurance. [employer] Other 09-02-2022 Evaluation note* Encounter Date Diagnosis Assessment Notes Treatment Notes Treatment Clinical Notes Jul, History of colon cancer (ICD-10 - Z85.038) [employer] Other 01-12-2022 Evaluation note* Encounter Date Diagnosis Assessment Notes Treatment Notes Treatment Clinical Notes Nov, Nico hy kid w cr kid I-IV (ICD-10 - I12.9) Blood pressure is controlled. She appears to be euvolemic. Continue current medication. Her potassium is low normal. I have advised her to increase her potassium intake in her diet Nov,hronic kidney disease, stage III (moderate) (ICD-10 - N18.30) She has a CKD due to the longstanding hypertension and partial recovery from JEANNE. Her baseline serum creatinine is 1.1-1.3 mg/dL. Her renal ultrasound showed unremarkable kidneys. I discussed with her the importance of good HTN control to surround the progression of disease. Nov,econdary hyperparathyroidism (ICD-10 - N25.81) She has Vit D deficiency but . I have advised her to take oral Vit D 1000 units PO daily Nov,Hyperuricemia (ICD-10 - E79.0) She has a hyperuricemia but denies any gout flare. We will monitor it and and start allopurinol in future if she has persistently high uric acid or gout. Nov,Hypokalemia (ICD-10 - E87.6) She has hypokalemia due to the diuretic induced renal potassium wasting. I have prescribed oral potassium. [employer] Other 10-25-2021 Evaluation note* Encounter Date Diagnosis Assessment Notes Treatment Notes Treatment Clinical Notes Aug, Contact with and (gordon spected) exposure to other viral communicable diseases (ICD-10 - Z20.828) Aug,Viral URI (ICD-10 - J06.9) Advised patient that [...] for COVID PCR test and to monitor wheezingnoted on physical exam. Immediate eval by ER for warning s/sx as discussed, including but not limited to, SOB, difficulty breathing, chest pain, palpitations, fever >103 or fevers that are not reduced with antipyretic, significant dehydration (unable to keep fluids or food down, persistent vomiting/diarrhea), abdominal pain, lethargy, severe headache. Patient was provided with education hand sheet. Patient verbalizes understanding and is agreeable to treatment plan Aug,OtherAdditional time spent conducting pre-visit phone call, screening for symptoms, instructions on social distancing, application and removal of PPE, and cleaning of examination room, equipment and supplies was preformed. Patient education given for testing methodology and results. Patient care instructions given in writting by [facility] document [employer] Other Evaluation + Plan note Future Appointments Appointment Date:01/13/2025 09:40:00 AM Scheduled Provider:MAG BLOUNT PA-C Location:[facility] Appointment Type:URO Office Visit Diagnostic Tests Pending * Urine Culture 10/15/24 [facility] Evaluation + Plan note Future Appointments Appointment Date:01/13/2025 09:40:00 AM Scheduled Provider:MAG BLOUNT PA-C Location:[facility] Appointment Type:URO Office Visit [facility] evaluation + Plan note Future Appointments Appointment Date:06/23/2025 09:40:00 AM Scheduled Provider:MAG BLOUNT PA-C Location:[facility] Appointment Type:URO Office Visit [facility] evaluation + Plan note Future Appointments Appointment Date:07/08/2025 02:30:00 PM Scheduled Provider:Amalia Stephens PA-C Location:[facility] Appointment Type:URO Office Visit [facility] evaluation + Plan note Future Appointments Appointment Date:09/23/2025 08:00:00 AM Scheduled Provider:Amalia Stephens PA-C Location:[facility] Appointment Type:URO Office Visit [facility] evaluation noteNo InformationNortPrime Healthcare Services [employer] Other Evaluation note* Diagnosis Onset Date Resolution Status History of colon cancer acute [facility] Work Phone: evaluation note* Diagnosis Onset Date Resolution Status Hypokalemia acuteHypomagnesemiaacuteStage 3 chronic kidney diseaseacuteCOVIDnoneactive Pneumonianoneactive [facility] Work Phone: evaluation note* Diagnosis Moderate persistent asthma with exacerbation (CMS/HCC)- Primary Unspecified asthma, with exacerbation Non-recurrent acute suppurative otitis media of both ears without spontaneous rupture of tympanic membranes Colorectal cancer ([facility]/HCC) Malignant neoplasm of colon, unspecified site Chronic heart failure with preserved ejection fraction (CMS/HCC) Pulmonary emphysema, unspecified emphysema type (CMS/HCC) Moderate episode of recurrent major depressive disorder (CMS/HCC)- Primary Moderate persistent asthma with exacerbation ([facility]/HCC) Unspecified asthma, with exacerbation Medicare annual wellness visit, subsequent Severe persistent asthma with acute exacerbation (CMS/HCC)- Primary Hospital discharge follow-up Other follow-up examination Severe persistent asthma without complication (CMS/HCC)- Primary Essential hypertension (CMS/HCC) Unspecified essential hypertension JEANNE (acute kidney injury) ([facility]) Leukocytosis, unspecified type Chronic respiratory failure with hypoxia ([facility]) Chronic bilateral low back pain without sciatica- Primary Vitamin D deficiency Chronic bilateral low back pain without sciatica- Primary Pneumonia due to infectious organism, unspecified laterality, unspecified part of lung- Primary Screening mammogram for breast cancer Chronic respiratory failure with hypoxia (CMS/[facility]) Pulmonary emphysema, unspecified emphysema type ([facility]/HCC) Essential hypertension ([facility]) Unspecified essential hypertension Morbid obesity with BMI of 40.0-44.9, adult ([facility]) Hospital discharge follow-up- Primary Other follow-up examination Chronic respiratory failure with hypoxia (CMS/HCC) Severe persistent asthma without complication ([facility]/HCC) Severe persistent asthma with acute exacerbation ([facility]/HCC)- Primary Severe persistent asthma with exacerbation ([facility]/HCC)- Primary Unspecified asthma, with exacerbation Hospital discharge follow-up- Primary Other follow-up examination Chronic respiratory failure with hypoxia ([facility])- Primary Hospital discharge follow-up Other follow-up examination Benign essential HTN ([facility]) Chronic heart failure with preserved ejection fraction ([facility]/HCC) Severe persistent asthma without complication ([facility]/HCC) Moderate mixed hyperlipidemia not requiring statin therapy ([facility]) Morbid obesity with BMI of 40.0-44.9, adult ([facility]) Opioid use Chronic, continuous use of opioids Chronic back pain greater than 3 months duration Moderate persistent asthma with exacerbation ([facility]/HCC)- Primary Unspecified asthma, with exacerbation Diarrhea, unspecified type [facility]* Diagnosis Moderate persistent asthma with exacerbation ([facility]/HCC)- Primary Unspecified asthma, with exacerbation Non-recurrent acute suppurative otitis media of both ears without spontaneous rupture of tympanic membranes Colorectal cancer ([facility]/HCC) Malignant neoplasm of colon, unspecified site Chronic heart failure with preserved ejection fraction (CMS/HCC) Pulmonary emphysema, unspecified emphysema type (CMS/HCC) Moderate episode of recurrent major depressive disorder (CMS/HCC)- Primary Moderate persistent asthma with exacerbation ([facility]/HCC) Unspecified asthma, with exacerbation Medicare annual wellness visit, subsequent Severe persistent asthma with acute exacerbation ([facility]/HCC)- Primary Hospital discharge follow-up Other follow-up examination Severe persistent asthma without complication (CMS/HCC)- Primary Essential hypertension (CMS/HCC) Unspecified essential hypertension JEANNE (acute kidney injury) ([facility]) Leukocytosis, unspecified type Chronic respiratory failure with hypoxia ([facility]) Chronic bilateral low back pain without sciatica- Primary Vitamin D deficiency Chronic bilateral low back pain without sciatica- Primary Pneumonia due to infectious organism, unspecified laterality, unspecified part of lung- Primary Screening mammogram for breast cancer Chronic respiratory failure with hypoxia ([facility]) Pulmonary emphysema, unspecified emphysema type ([facility]) Essential hypertension ([facility] Unspecified essential hypertension Morbid obesity with BMI of 40.0-44.9, adult ([facility]) Hospital discharge follow-up- Primary Other follow-up examination Chronic respiratory failure with hypoxia (CMS/HCC) Severe persistent asthma without complication ([facility]/HCC) Severe persistent asthma with acute exacerbation ([facility]/HCC)- Primary Severe persistent asthma with exacerbation ([facility]/HCC)- Primary Unspecified asthma, with exacerbation Hospital discharge follow-up- Primary Other follow-up examination Chronic respiratory failure with hypoxia ([facility])- Primary Hospital discharge follow-up Other follow-up examination Benign essential HTN ([facility]/HCC) Chronic heart failure with preserved ejection fraction ([facility]/HCC) Severe persistent asthma without complication ([facility]/HCC) Moderate mixed hyperlipidemia not requiring statin therapy ([facility]) Morbid obesity with BMI of 40.0-44.9, adult ([facility]) Opioid use Chronic, continuous use of opioids Chronic back pain greater than 3 months duration Restless leg syndrome Restless legs syndrome (RLS) documented in [facility] encounter [facility]* Diagnosis Moderate persistent asthma with exacerbation ([facility]/HCC)- Primary Unspecified asthma, with exacerbation Non-recurrent acute [...] hypoxia (CMS/HCC) Pulmonary emphysema, unspecified emphysema type ([facility]/HCC) Essential hypertension ([facility]/HCC) Unspecified essential hypertension Morbid obesity with BMI of 40.0-44.9, adult ([facility]) Hospital discharge [...] Morbid obesity with BMI of 40.0-44.9, adult ([facility]) Opioid use Chronic, continuous use of opioids Chronic back pain greater than 3 months duration Gastroesophageal reflux disease without esophagitis Esophageal reflux documented in this encounter [facility] HealthcareEvaluation noteNo assessment information availableFort [facility] Ctr Work Phone: Evaluation note* Diagnosis [...] breast cancer Chronic respiratory failure with hypoxia (CMS/[facility]) Pulmonary emphysema, unspecified emphysema type ([facility]/HCC) Essential hypertension ([facility]/HCC) Unspecified essential hypertension Morbid obesity with BMI of 40.0-44.9, adult ([facility]) Hospital discharge follow-up- Primary Other follow-up examination Chronic respiratory failure with hypoxia (CMS/HCC) Severe persistent asthma without complication (CMS/HCC) Severe persistent asthma with acute exacerbation (CMS/HCC)- Primary Severe persistent asthma with exacerbation ([facility]/HCC)- Primary Unspecified asthma, with exacerbation Hospital discharge follow-up- Primary Other follow-up examination Chronic respiratory failure with hypoxia ([facility])- Primary Hospital discharge follow-up Other follow-up examination Benign essential HTN (CMS/HCC) Chronic heart failure with preserved ejection fraction (CMS/HCC) Severe persistent asthma without complication (CMS/HCC) Moderate mixed hyperlipidemia not requiring statin therapy ([facility]/HCC) Morbid obesity with BMI of 40.0-44.9, adult ([facility]) Opioid use Chronic, continuous use of opioids Chronic back pain greater than 3 months duration Vaginal guero- Primary Candidiasis of vulva and vagina documented in this encounter [facility] HealthcareEvaluation note* Diagnosis Moderate persistent asthma with exacerbation (CMS/HCC)- Primary Unspecified asthma, with exacerbation Non-recurrent acute suppurative otitis media of both ears without spontaneous rupture of tympanic membranes Colorectal cancer (CMS/HCC) Malignant neoplasm of colon, unspecified site Chronic heart failure with preserved ejection fraction ([facility]/HCC) Pulmonary emphysema, unspecified emphysema type ([facility]/HCC) Moderate episode of recurrent major depressive disorder ([facility]/HCC)- Primary Moderate persistent asthma with exacerbation ([facility]) Unspecified asthma, with exacerbation Medicare annual wellness visit, subsequent Severe persistent asthma with acute exacerbation ([facility]HCC)- Primary Hospital discharge follow-up Other follow-up examination Severe persistent asthma without complication ([facility])- Primary Essential hypertension ([facility]/HCC) Unspecified essential hypertension JEANNE (acute kidney injury) ([facility]) Leukocytosis, unspecified type Chronic respiratory failure with hypoxia ([facility]/HCC) Chronic bilateral low back pain without sciatica- Primary Vitamin D deficiency Chronic bilateral low back pain without sciatica- Primary Pneumonia due to infectious organism, unspecified laterality, unspecified part of lung- Primary Screening mammogram for breast cancer Chronic respiratory failure with hypoxia ([facility]) Pulmonary emphysema, unspecified emphysema type ([facility]) Essential hypertension ([facility]) Unspecified essential hypertension Morbid obesity with BMI of 40.0-44.9, adult ([facility]) Hospital discharge follow-up- Primary Other follow-up examination Chronic respiratory failure with hypoxia ([facility]CC) Severe persistent asthma without complication ([facility]CC) Severe persistent asthma with acute exacerbation ([facility]/HCC)- Primary Severe persistent asthma with exacerbation ([facility]/HCC)- Primary Unspecified asthma, with exacerbation Hospital discharge follow-up- Primary Other follow-up examination Chronic respiratory failure with hypoxia ([facility])- Primary Hospital discharge follow-up Other follow-up examination Benign essential HTN ([facility]) Chronic heart failure with preserved ejection fraction ([facility]/HCC[facility] Severe persistent asthma without complication ([facility]/HCC) Moderate mixed hyperlipidemia not requiring statin therapy ([facility]) Morbid obesity with BMI of 40.0-44.9, adult ([facility]) Opioid use Chronic, continuous use of opioids Chronic back pain greater than 3 months duration Restless leg syndrome Restless legs syndrome (RLS) documented in this encounter [facility] HealthcareEvaluation note* Diagnosis Moderate persistent asthma with exacerbation ([facility]/HCC)- Primary Unspecified asthma, with exacerbation Non-recurrent acute suppurative otitis media of both ears without spontaneous rupture of tympanic membranes Colorectal cancer ([facility]/HCC) Malignant neoplasm of colon, unspecified site Chronic heart failure with preserved ejection fraction ([facility]/HCC) Pulmonary emphysema, unspecified emphysema type (CMS/HCC) Moderate episode of recurrent major depressive disorder (CMS/HCC)- Primary Moderate persistent asthma with exacerbation ([facility]/HCC) Unspecified asthma, with exacerbation Medicare annual wellness visit, subsequent Severe persistent asthma with acute exacerbation (CMS/HCC)- Primary Hospital discharge follow-up Other follow-up examination Severe persistent asthma without complication (CMS/HCC)- Primary Essential hypertension (CMS/HCC) Unspecified essential hypertension JEANNE (acute kidney injury) ([facility]/HCC) Leukocytosis, unspecified type Chronic respiratory failure with hypoxia (CMS/HCC) Chronic bilateral low back pain without sciatica- Primary Vitamin D deficiency Chronic bilateral low back pain without sciatica- Primary Pneumonia due to infectious organism, unspecified laterality, unspecified part of lung- Primary Screening mammogram for breast cancer Chronic respiratory failure with hypoxia (CMS/HCC) Pulmonary emphysema, unspecified emphysema type (CMS/HCC) Essential hypertension ([facility]/HCC) Unspecified essential hypertension Morbid obesity with BMI of 40.0-44.9, adult ([facility]) Hospital discharge follow-up- Primary Other follow-up examination Chronic respiratory failure with hypoxia (CMS/HCC) Severe persistent asthma without complication (CMS/HCC) Severe persistent asthma with acute exacerbation (CMS/HCC)- Primary Severe persistent asthma with exacerbation ([facility]/HCC)- Primary Unspecified asthma, with exacerbation Hospital discharge follow-up- Primary Other follow-up examination Chronic respiratory failure with hypoxia (CMS/HCC)- Primary Hospital discharge follow-up Other follow-up examination Benign essential HTN (CMS/HCC) Chronic heart failure with preserved ejection fraction (CMS/HCC) Severe persistent asthma without complication (CMS/HCC) Moderate mixed hyperlipidemia not requiring statin therapy ([facility]/HCC) Morbid obesity with BMI of 40.0-44.9, adult ([facility]) Opioid use Chronic, continuous use of opioids Chronic back pain greater than 3 months duration Urge incontinence- Primary Morbid obesity with BMI of 40.0-44.9, adult ([facility]) 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 Stage 3a chronic kidney disease (HCC) ([facility]/HCC) Chronic respiratory failure with hypoxia (CMS/HCC) documented in this encounter [facility] HealthcareEvaluation note* Diagnosis Moderate persistent asthma [...] Morbid obesity with BMI of 40.0-44.9, adult ([facility]) Hospital discharge [...] Morbid obesity with BMI of 40.0-44.9, adult ([facility]/HCC) Opioid use Chronic, continuous use of opioids Chronic back pain greater than 3 months duration Urge incontinence- Primary Morbid obesity with BMI of 40.0-44.9, adult ([facility]/HCC) 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 [...] emphysema, unspecified emphysema type (CMS/HCC) Essential hypertension ([facility]/HCC) Unspecified essential hypertension Morbid obesity with BMI of 40.0-44.9, adult ([facility]) Hospital discharge follow-up- Primary Other follow-up examination Chronic respiratory failure with hypoxia (CMS/HCC) Severe persistent asthma without complication (CMS/HCC) Severe persistent asthma with acute exacerbation (CMS/HCC)- Primary Severe persistent asthma with exacerbation ([facility]/HCC)- Primary Unspecified asthma, with exacerbation Hospital discharge follow-up- Primary Other follow-up examination Chronic respiratory failure with hypoxia (CMS/HCC)- Primary Hospital discharge follow-up Other follow-up examination Benign essential HTN (CMS/HCC) Chronic heart failure with preserved ejection fraction (CMS/HCC) Severe persistent asthma without complication (CMS/HCC) Moderate mixed hyperlipidemia not requiring statin therapy (CMS/HCC) Morbid obesity with BMI of 40.0-44.9, adult ([facility]) Opioid use Chronic, continuous use of opioids Chronic back pain greater than 3 months duration Urge incontinence- Primary Morbid obesity with BMI of 40.0-44.9, adult ([facility]) 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 Stage 3a chronic kidney disease (HCC) (CMS/HCC) Chronic respiratory failure with hypoxia (CMS/HCC) Urge incontinence documented in this encounter [facility] HealthcareEvaluation note* Diagnosis Moderate persistent asthma with exacerbation (CMS/HCC)- Primary Unspecified asthma, with exacerbation Non-recurrent acute suppurative otitis media of both ears without spontaneous rupture of tympanic membranes Colorectal cancer ([facility]/HCC) Malignant neoplasm of colon, unspecified site Chronic heart failure with preserved ejection fraction (CMS/HCC) Pulmonary emphysema, unspecified emphysema type ([facility]/HCC) Moderate episode of recurrent major depressive disorder ([facility]/HCC)- Primary Moderate persistent asthma with exacerbation ([facility]/HCC) Unspecified asthma, with exacerbation Medicare annual wellness visit, subsequent Severe persistent asthma with acute exacerbation ([facility]/HCC)- Primary Hospital discharge follow-up Other follow-up examination Severe persistent asthma without complication (CMS/HCC)- Primary Essential hypertension ([facility]/HCC) Unspecified essential hypertension JEANNE (acute kidney injury) ([facility]) Leukocytosis, unspecified type Chronic respiratory failure with hypoxia (CMS/HCC) Chronic bilateral low back pain without sciatica- Primary Vitamin D deficiency Chronic bilateral low back pain without sciatica- Primary Pneumonia due to infectious organism, unspecified laterality, unspecified part of lung- Primary Screening mammogram for breast cancer Chronic respiratory failure with hypoxia (CMS/HCC) Pulmonary emphysema, unspecified emphysema type ([facility]/HCC) Essential hypertension ([facility]) Unspecified essential hypertension Morbid obesity with BMI of 40.0-44.9, adult ([facility]) Hospital discharge follow-up- Primary Other follow-up examination Chronic respiratory failure with hypoxia (CMS/HCC) Severe persistent asthma without complication (CMS/HCC) Severe persistent asthma with acute exacerbation ([facility]/HCC)- Primary Severe persistent asthma with exacerbation ([facility]/HCC)- Primary Unspecified asthma, with exacerbation Hospital discharge follow-up- Primary Other follow-up examination Chronic respiratory failure with hypoxia (CMS/HCC)- Primary Hospital discharge follow-up Other follow-up examination Benign essential HTN (CMS/HCC) Chronic heart failure with preserved ejection fraction (CMS/HCC) Severe persistent asthma without complication (CMS/HCC) Moderate mixed hyperlipidemia not requiring statin therapy ([facility]/HCC) Morbid obesity with BMI of 40.0-44.9, adult ([facility]) Opioid use [...] Morbid obesity with BMI of 40.0-44.9, adult ([facility]) Hospital discharge [...] Morbid obesity with BMI of 40.0-44.9, adult ([facility]) 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 Stage 3a chronic kidney disease (HCC) (CMS/HCC) Chronic respiratory failure with hypoxia (CMS/HCC) Moderate episode of recurrent major depressive disorder ([facility]) Restless leg syndrome Restless legs syndrome (RLS) documented in this encounter [facility] HealthcareEvaluation note* Diagnosis Moderate persistent asthma [...] (CMS/HCC)- Primary Moderate persistent asthma with exacerbation ([facility]/HCC) Unspecified asthma, with exacerbation Medicare annual wellness visit, subsequent Severe persistent asthma with acute exacerbation ([facility]/HCC)- Primary Hospital discharge follow-up Other follow-up examination [...] Morbid obesity with BMI of 40.0-44.9, adult ([facility]) Hospital discharge follow-up- Primary Other follow-up examination Chronic respiratory failure with hypoxia ([facility]/HCC) Severe persistent asthma without complication ([facility]/HCC) Severe persistent asthma with acute exacerbation (CMS/HCC)- Primary Severe persistent asthma with exacerbation (CMS/HCC)- Primary Unspecified asthma, with exacerbation Hospital discharge follow-up- Primary Other follow-up examination Chronic respiratory failure with hypoxia ([facility]/HCC)- Primary Hospital discharge follow-up Other follow-up examination Benign essential HTN ([facility]/HCC) Chronic heart failure with preserved ejection fraction (CMS/HCC) Severe persistent asthma without complication (CMS/HCC) Moderate mixed hyperlipidemia not requiring statin therapy ([facility]/HCC) Morbid obesity with BMI of 40.0-44.9, adult ([facility]) Opioid use Chronic, continuous use of opioids Chronic back pain greater than 3 months duration Urge incontinence- Primary Morbid obesity with BMI of 40.0-44.9, adult ([facility]) 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 Stage 3a chronic kidney disease (HCC) ([facility]) Chronic respiratory failure with hypoxia ([facility]) Chronic obstructive pulmonary disease with acute lower respiratory infection ([facility])- Primary Primary HSV infection of mouth documented in this encounter [facility] HealthcareEvaluation note* Diagnosis Moderate persistent asthma with exacerbation ([facility]/HCC)- Primary Unspecified asthma, with exacerbation Non-recurrent acute suppurative otitis media of both ears without spontaneous rupture of tympanic membranes Colorectal cancer ([facility]) Malignant neoplasm of colon, unspecified site Chronic heart failure with preserved ejection fraction ([facility]) Pulmonary emphysema, unspecified emphysema type ([facility]) Moderate episode of recurrent major depressive disorder ([facility]/HCC)- Primary Moderate persistent asthma with exacerbation ([facility]/HCC) Unspecified asthma, with exacerbation Medicare annual wellness visit, subsequent Severe persistent asthma with acute exacerbation ([facility]/HCC)- Primary Hospital discharge follow-up Other follow-up examination Severe persistent asthma without complication (CMS/HCC)- Primary Essential hypertension ([facility]/HCC) Unspecified essential hypertension JEANNE (acute kidney injury) ([facility]) Leukocytosis, unspecified type Chronic respiratory failure with hypoxia ([facility]/HCC) Chronic bilateral low back pain without sciatica- [...] Morbid obesity with BMI of 40.0-44.9, adult ([facility]) Opioid use Chronic, continuous use of opioids Chronic back pain greater than 3 months duration Urge incontinence- Primary Morbid obesity with BMI of 40.0-44.9, adult ([facility]) 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 Stage 3a chronic kidney disease (HCC) (CMS/HCC) Chronic respiratory failure with hypoxia (CMS/HCC) Chronic obstructive pulmonary disease with acute lower respiratory infection (CMS/HCC)- Primary Primary HSV infection of mouth Pulmonary emphysema, unspecified emphysema type (CMS/HCC)- Primary documented in this encounter [facility] HealthcareEvaluation note* Diagnosis Moderate persistent asthma [...] Morbid obesity with BMI of 40.0-44.9, adult ([facility]/HCC) Hospital discharge follow-up- Primary Other follow-up examination [...] Morbid obesity with BMI of 40.0-44.9, adult ([facility]) Opioid use Chronic, continuous use of opioids Chronic back pain greater than 3 months duration Urge incontinence- Primary Morbid obesity with BMI of 40.0-44.9, adult ([facility]) 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 Stage 3a chronic kidney disease (HCC) ([facility]/HCC) Chronic respiratory failure with hypoxia ([facility]/HCC) Chronic obstructive pulmonary disease with acute lower respiratory infection ([facility]/HCC)- Primary Primary HSV infection of mouth Pulmonary emphysema, unspecified emphysema type (CMS/HCC)- Primary Gastroesophageal reflux disease without esophagitis Esophageal reflux documented in this encounter [facility] HealthcareEvaluation note* Diagnosis Moderate persistent asthma [...] subsequent Severe persistent asthma with acute exacerbation ([facility]/HCC)- Primary Hospital discharge follow-up Other follow-up examination Severe persistent asthma without complication ([facility]/HCC)- Primary Essential hypertension ([facility] Unspecified essential hypertension JEANNE (acute kidney injury) ([facility]) Leukocytosis, unspecified type Chronic respiratory failure with hypoxia ([facility]) Chronic bilateral low back pain without sciatica- Primary Vitamin D deficiency Chronic bilateral low back pain without sciatica- Primary Pneumonia due to infectious organism, unspecified laterality, unspecified part of lung- Primary Screening mammogram for breast cancer Chronic respiratory failure with hypoxia ([facility]) Pulmonary emphysema, unspecified emphysema type ([facility]) Essential hypertension ([facility]) Unspecified essential hypertension Morbid obesity with BMI of 40.0-44.9, adult ([facility]) Hospital discharge follow-up- Primary Other follow-up examination Chronic respiratory failure with hypoxia ([facility]) Severe persistent asthma without complication ([facility] Severe persistent asthma [facility] acute exacerbation ([facility])- Primary Severe persistent asthma with exacerbation ([facility])- Primary Unspecified asthma, with exacerbation Hospital discharge follow-up- Primary Other follow-up examination Chronic respiratory failure with hypoxia ([facility])- Primary Hospital discharge follow-up Other follow-up examination Benign essential HTN ([facility] Chronic heart failure with preserved ejection fraction ([facility] Severe persistent asthma without complication ([facility] Moderate mixed hyperlipidemia not requiring statin therapy ([facility]) Morbid obesity with BMI of 40.0-44.9, adult ([facility]) Opioid use Chronic, continuous use of opioids Chronic back pain greater than 3 months duration Urge incontinence- Primary Morbid obesity with BMI of 40.0-44.9, adult ([facility]) 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 Stage 3a chronic kidney disease (HCC) ([facility]) Chronic respiratory failure with hypoxia ([facility]) Chronic obstructive pulmonary disease with acute lower respiratory infection ([facility])- Primary Primary HSV infection of mouth Pulmonary emphysema, unspecified emphysema type ([facility])- Primary Restless leg syndrome Restless legs syndrome (RLS) documented in this encounter [facility] HealthcareEvaluation note* Diagnosis Moderate persistent asthma with exacerbation ([facility])- Primary Unspecified [...] Morbid obesity with BMI of 40.0-44.9, adult ([facility]) Hospital discharge [...] Morbid obesity with BMI of 40.0-44.9, adult ([facility]) Opioid use Chronic, continuous use of opioids Chronic back pain greater than 3 months duration Urge incontinence- Primary Morbid obesity with BMI of 40.0-44.9, adult ([facility]) 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 Stage 3a chronic kidney disease (HCC) (CMS/HCC) Chronic respiratory failure with hypoxia ([facility]/HCC) Chronic obstructive pulmonary disease with acute lower respiratory infection ([facility]HCC)- Primary Primary HSV infection of mouth Pulmonary emphysema, unspecified emphysema type ([facility]/HCC)- Primary Nevus lipomatosus cutaneus superficialis- Primary Lipoma of other skin and subcutaneous tissue Squamous cell carcinoma of skin of chest documented in this encounter [facility] HealthcareEvaluation note* Diagnosis Moderate persistent asthma with exacerbation ([facility]/HCC)- Primary Unspecified asthma, with exacerbation Non-recurrent acute suppurative otitis media of both ears without spontaneous rupture of tympanic membranes Colorectal cancer ([facility]/HCC) Malignant neoplasm of colon, unspecified site Chronic heart failure with preserved ejection fraction ([facility]/HCC) Pulmonary emphysema, unspecified emphysema type (CMS/HCC) Moderate episode of recurrent major depressive disorder ([facility])- Primary Moderate persistent asthma with exacerbation ([facility]) Unspecified asthma, with exacerbation Medicare annual wellness visit, subsequent Severe persistent asthma with acute exacerbation ([facility])- Primary Hospital discharge follow-up Other follow-up examination Severe persistent asthma without complication ([facility]/HCC)- Primary Essential hypertension ([facility] Unspecified essential hypertension JEANNE (acute kidney injury) ([facility]) Leukocytosis, unspecified type Chronic respiratory failure with hypoxia ([facility]) Chronic bilateral low back pain without sciatica- Primary Vitamin D deficiency Chronic bilateral low back pain without sciatica- Primary Pneumonia due to infectious organism, unspecified laterality, unspecified part of lung- Primary Screening mammogram for breast cancer Chronic respiratory failure with hypoxia ([facility] [facility] Pulmonary emphysema, unspecified emphysema type ([facility]) Essential hypertension ([facility]) Unspecified essential hypertension Morbid obesity with BMI of 40.0-44.9, adult ([facility]) Hospital discharge follow-up- Primary Other follow-up examination Chronic respiratory failure with hypoxia ([facility]) Severe persistent asthma without complication ([facility]) Severe persistent asthma with acute exacerbation ([facility])- Primary Severe persistent asthma with exacerbation ([facility] Primary Unspecified asthma, with exacerbation Hospital discharge follow-up- Primary Other follow-up examination Chronic respiratory failure with hypoxia ([facility])- Primary Hospital discharge follow-up Other follow-up examination Benign essential HTN ([facility]) Chronic heart failure with preserved ejection fraction ([facility]) Severe persistent asthma without complication ([facility]) Moderate mixed hyperlipidemia not requiring statin therapy ([facility]) Morbid obesity with BMI of 40.0-44.9, adult ([facility]) Opioid use Chronic, continuous use of opioids Chronic back pain greater than 3 months duration Urge incontinence- Primary Morbid obesity with BMI of 40.0-44.9, adult ([facility]) 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 Stage 3a chronic kidney disease (HCC) ([facility]) Chronic respiratory failure with hypoxia ([facility]) Chronic obstructive pulmonary disease with acute lower respiratory infection ([facility])- Primary Primary HSV infection of mouth Pulmonary emphysema, unspecified emphysema type ([facility])- Primary Moderate episode of recurrent major depressive disorder ([facility]) Acute pain of right knee- Primary History of total right knee replacement documented in this encounter [facility] HealthcareEvaluation note* Diagnosis Moderate persistent asthma with exacerbation ([facility])- Primary Unspecified asthma, with exacerbation Non-recurrent acute suppurative otitis media of both ears without spontaneous rupture of tympanic membranes Colorectal cancer ([facility]) Malignant neoplasm of colon, unspecified site Chronic heart failure with preserved ejection fraction ([facility]) Pulmonary emphysema, unspecified emphysema type ([facility]) Moderate episode of recurrent major depressive disorder ([facility])- Primary Moderate persistent asthma with exacerbation ([facility]) Unspecified asthma, with exacerbation Medicare annual wellness visit, subsequent Severe persistent asthma with acute exacerbation ([facility])- Primary Hospital discharge follow-up Other follow-up examination Severe persistent asthma without complication (CMS/HCC)- Primary Essential hypertension ([facility]) Unspecified essential hypertension JEANNE (acute kidney injury) ([facility]) Leukocytosis, unspecified type Chronic respiratory failure with hypoxia ([facility]) Chronic bilateral low back pain without sciatica- Primary Vitamin D deficiency Chronic bilateral low back pain without sciatica- Primary Pneumonia due to infectious organism, unspecified laterality, unspecified part of lung- Primary Screening mammogram for breast cancer Chronic respiratory failure with hypoxia ([facility]) Pulmonary emphysema, unspecified emphysema type ([facility]) Essential hypertension ([facility]) Unspecified essential hypertension Morbid obesity with BMI of 40.0-44.9, adult ([facility]) Hospital discharge follow-up- Primary Other follow-up examination Chronic respiratory failure with hypoxia (CMS/HCC) Severe persistent asthma without complication (CMS/HCC) Severe persistent asthma with acute exacerbation (CMS/HCC)- Primary Severe persistent asthma with exacerbation ([facility])- Primary Unspecified asthma, with exacerbation Hospital discharge follow-up- Primary Other follow-up examination Chronic respiratory failure with hypoxia (CMS/HCC)- Primary Hospital discharge follow-up Other follow-up examination Benign essential HTN (CMS/HCC) Chronic heart failure with preserved ejection fraction (CMS/HCC) Severe persistent asthma without complication (CMS/HCC) Moderate mixed hyperlipidemia not requiring statin therapy (CMS/HCC) Morbid obesity with BMI of 40.0-44.9, adult ([facility]) Opioid use Chronic, continuous use of opioids Chronic back pain greater than 3 months duration Urge incontinence- Primary Morbid obesity with BMI of 40.0-44.9, adult ([facility]) Neoplasm of [...] of right hip documented in this encounter [facility] HealthcareEvaluation note* Diagnosis Moderate persistent asthma with exacerbation (CMS/HCC)- Primary Unspecified asthma, with exacerbation Non-recurrent acute suppurative otitis media of both ears without spontaneous rupture of tympanic membranes Colorectal cancer (CMS/HCC) Malignant neoplasm of colon, unspecified site Chronic heart failure with preserved ejection fraction (CMS/HCC) Pulmonary emphysema, unspecified emphysema type ([facility]) Moderate episode of recurrent major depressive disorder (CMS/HCC)- Primary Moderate persistent asthma with exacerbation ([facility]) Unspecified asthma, with exacerbation Medicare annual wellness visit, subsequent Severe persistent asthma with acute exacerbation ([facility])- Primary Hospital discharge follow-up Other follow-up examination [...] Morbid obesity with BMI of 40.0-44.9, adult ([facility]) Opioid use Chronic, continuous use of opioids Chronic back pain greater than 3 months duration Urge incontinence- Primary Morbid obesity with BMI of 40.0-44.9, adult ([facility]) Neoplasm of [...] of skin Lentigines documented in this encounter [facility] HealthcareEvaluation note* Diagnosis Moderate episode of [...] Morbid obesity with BMI of 40.0-44.9, adult ([facility]) 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 Stage 3a chronic kidney disease (HCC) ([facility]) Chronic respiratory failure with hypoxia (CMS/HCC) Chronic obstructive pulmonary disease with acute lower respiratory infection (CMS/HCC)- Primary Primary HSV infection of mouth Pulmonary emphysema, unspecified emphysema type (CMS/HCC)- Primary Flu-like symptoms- Primary Morbid (severe) obesity due to excess calories (CMS/HCC) Body mass index (BMI) 40.0-44.9, adult ([facility]) Pulmonary emphysema, unspecified emphysema type (CMS/HCC) Chronic respiratory failure with hypoxia (CMS/HCC) Essential hypertension ([facility]) Unspecified essential hypertension documented in this encounter [facility] HealthcareEvaluation note* Diagnosis Moderate [...] emphysema, unspecified emphysema type (CMS/HCC) Essential hypertension ([facility]) Unspecified essential hypertension Morbid obesity with BMI of 40.0-44.9, adult ([facility]) Hospital discharge follow-up- Primary Other follow-up examination Chronic respiratory failure with hypoxia (CMS/HCC) Severe persistent asthma without complication ([facility]) Severe persistent asthma with acute exacerbation (CMS/HCC)- Primary Hospital discharge follow-up- Primary Other follow-up examination Chronic respiratory failure with hypoxia (CMS/HCC)- Primary Hospital discharge follow-up Other follow-up examination Benign essential HTN ([facility]) Chronic heart failure with preserved ejection fraction ([facility]) Severe persistent asthma without complication (CMS/HCC) Moderate mixed hyperlipidemia not requiring statin therapy ([facility]) Morbid obesity with BMI of 40.0-44.9, adult ([facility]) Opioid use Chronic, continuous use of opioids Chronic back pain greater than 3 months duration Urge incontinence- Primary Morbid obesity with BMI of 40.0-44.9, adult ([facility]) 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 Stage 3a chronic kidney disease (HCC) ([facility]) Chronic respiratory failure with hypoxia ([facility]) Chronic obstructive pulmonary disease with acute lower respiratory infection ([facility])- Primary Primary HSV infection of mouth Pulmonary emphysema, unspecified emphysema type ([facility])- Primary Flu-like symptoms- Primary Morbid (severe) obesity due to excess calories ([facility]) Body mass index (BMI) 40.0-44.9, adult ([facility]) Pulmonary emphysema, unspecified emphysema type ([facility]) Chronic respiratory failure with hypoxia (CMS/HCC) Essential hypertension ([facility]) Unspecified essential hypertension Pneumonia due to infectious organism, unspecified laterality, unspecified part of lung- Primary documented in this encounter [facility] HealthcareEvaluation note* Diagnosis Moderate episode of recurrent major depressive disorder ([facility])- Primary Moderate persistent asthma with exacerbation ([facility]) Unspecified asthma, with exacerbation Medicare annual wellness visit, subsequent Severe persistent asthma with acute exacerbation ([facility])- Primary Hospital discharge follow-up Other follow-up examination Severe persistent asthma without complication ([facility])- Primary Essential hypertension (CMS/HCC) Unspecified essential hypertension [...] Morbid obesity with BMI of 40.0-44.9, adult ([facility]) Opioid use Chronic, continuous use of opioids Chronic back pain greater than 3 months duration Urge incontinence- Primary Morbid obesity with BMI of 40.0-44.9, adult ([facility]) Neoplasm of [...] (CMS/HCC) Body mass index (BMI) 40.0-44.9, adult ([facility]) Pulmonary emphysema, unspecified emphysema type (CMS/HCC) Chronic [...] depressive disorder (CMS/HCC) documented in this encounter [facility] HealthcareEvaluation note* Diagnosis Moderate episode of [...] Morbid obesity with BMI of 40.0-44.9, adult ([facility]) Hospital discharge [...] (CMS/HCC) Body mass index (BMI) 40.0-44.9, adult ([facility]) Pulmonary emphysema, [...] hypertension Chronic kidney disease, stage 3a (HCC) ([facility]) Morbid (severe) obesity due to excess calories ([facility]) Screening mammogram for breast cancer Moderate episode of recurrent major depressive disorder ([facility]) Edema of both lower extremities- Primary Spinal stenosis, lumbar region without neurogenic claudication Chronic heart failure with preserved ejection fraction ([facility]) Chronic respiratory failure with hypoxia ([facility]) Severe persistent asthma, uncomplicated ([facility]) Gastroesophageal reflux disease, unspecified whether esophagitis present Morbid (severe) obesity due to excess calories ([facility]) RLS (restless legs syndrome) Restless legs syndrome (RLS) Candidiasis documented in this encounter [facility] HealthcareEvaluation note* Diagnosis Moderate episode of recurrent major depressive disorder ([facility])- Primary Moderate persistent asthma with exacerbation ([facility]) Unspecified asthma, with exacerbation Medicare annual wellness visit, subsequent Severe persistent asthma with acute exacerbation ([facility])- Primary Hospital discharge follow-up Other follow-up examination Severe persistent asthma without complication (CMS/HCC)- Primary Essential hypertension ([facility]) Unspecified essential hypertension JEANNE (acute kidney injury) ([facility]) Leukocytosis, unspecified [...] emphysema, unspecified emphysema type (CMS/HCC) Essential hypertension ([facility]) Unspecified essential hypertension Morbid obesity with BMI of 40.0-44.9, adult ([facility]) Hospital discharge [...] Morbid obesity with BMI of 40.0-44.9, adult ([facility]) 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 Stage 3a chronic kidney disease (HCC) (CMS/HCC) Chronic respiratory failure with hypoxia (CMS/HCC) Chronic obstructive pulmonary disease with acute lower respiratory infection ([facility])- Primary Primary HSV infection of mouth Pulmonary emphysema, unspecified emphysema type (CMS/HCC)- Primary Flu-like symptoms- Primary Morbid (severe) obesity due to excess calories (CMS/HCC) Body mass index (BMI) 40.0-44.9, adult ([facility]) Pulmonary emphysema, [...] esophagitis Esophageal reflux documented in this encounter [facility] HealthcareEvaluation note* Diagnosis Moderate episode of recurrent major depressive disorder ([facility])- Primary Moderate persistent asthma with exacerbation ([facility]) Unspecified asthma, with exacerbation Medicare annual wellness visit, subsequent Severe persistent asthma with acute exacerbation ([facility])- Primary Hospital discharge follow-up Other follow-up examination Severe persistent asthma without complication (CMS/HCC)- Primary Essential hypertension ([facility]) Unspecified essential hypertension JEANNE (acute kidney injury) ([facility]) Leukocytosis, unspecified type Chronic respiratory failure with hypoxia (CMS/HCC) Chronic bilateral low back pain without sciatica- Primary Vitamin D deficiency Chronic bilateral low back pain without sciatica- Primary Pneumonia due to infectious organism, unspecified laterality, unspecified part of lung- Primary Screening mammogram for breast cancer Chronic respiratory failure with hypoxia ([facility]) Pulmonary emphysema, unspecified emphysema type ([facility]) Essential hypertension ([facility]) Unspecified essential hypertension Morbid obesity with BMI of 40.0-44.9, adult ([facility]) Hospital discharge follow-up- Primary Other follow-up examination Chronic respiratory failure with hypoxia (CMS/HCC) Severe persistent asthma without complication ([facility]) Chronic respiratory failure with hypoxia ([facility])- Primary Hospital discharge follow-up Other follow-up examination Benign essential HTN ([facility] Chronic heart failure with preserved ejection fraction ([facility]) Severe persistent asthma without complication ([facility]) Moderate mixed hyperlipidemia not requiring statin therapy ([facility]) Morbid obesity with BMI of 40.0-44.9, adult ([facility]) Opioid use Chronic, continuous use of opioids Chronic back pain greater than 3 months duration Urge incontinence- Primary Morbid obesity with BMI of 40.0-44.9, adult ([facility]) 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 Stage 3a chronic kidney disease (HCC) ([facility] Chronic respiratory failure with hypoxia ([facility]) Chronic obstructive pulmonary disease with acute lower respiratory infection ([facility])- Primary Primary HSV infection of mouth Pulmonary emphysema, unspecified emphysema type ([facility])- Primary Flu-like symptoms- Primary Morbid (severe) obesity due to excess calories ([facility]) Body mass index (BMI) 40.0-44.9, adult ([facility]) Pulmonary emphysema, [...] to excess calories ([facility]) Screening mammogram for breast cancer Moderate episode of recurrent major depressive disorder ([facility]) Edema of both lower extremities- Primary Spinal stenosis, lumbar region without neurogenic claudication Chronic heart failure with preserved ejection fraction (CMS/HCC) Chronic respiratory failure with hypoxia ([facility]) Severe persistent asthma, uncomplicated ([facility]) Gastroesophageal reflux disease, unspecified whether esophagitis present Morbid (severe) obesity due to excess calories ([facility]) RLS (restless legs syndrome) Restless legs syndrome (RLS) Candidiasis Moderate episode of recurrent major depressive disorder (CMS/HCC)- Primary Pulmonary emphysema, unspecified emphysema type ([facility]) Chronic respiratory failure with hypoxia (CMS/HCC) Morbid (severe) obesity due to excess calories ([facility]) Restless leg syndrome Restless legs syndrome (RLS) documented in this encounter [facility] HealthcareEvaluation note* Diagnosis Moderate episode of [...] Morbid obesity with BMI of 40.0-44.9, adult ([facility]) Hospital discharge [...] Morbid obesity with BMI of 40.0-44.9, adult ([facility]) Opioid use Chronic, continuous use of opioids Chronic back pain greater than 3 months duration Urge incontinence- Primary Morbid obesity with BMI of 40.0-44.9, adult ([facility]) 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 Stage 3a chronic kidney disease ([facility]) Chronic respiratory failure [facility] hypoxia ([facility]) Chronic obstructive pulmonary disease with acute lower respiratory infection ([facility])- Primary Primary HSV infection of mouth Pulmonary emphysema, unspecified emphysema type ([facility])- Primary Flu-like symptoms- Primary Morbid (severe) obesity due to excess calories ([facility]) Body mass index (BMI) 40.0-44.9, adult ([facility]) Pulmonary emphysema, unspecified emphysema type ([facility] [...] hypertension (HCC) Chronic kidney disease, stage 3a ([facility]) Morbid (severe) obesity due to excess calories ([facility]) Screening mammogram for breast cancer Moderate episode of recurrent major depressive disorder (HCC) Edema of both lower extremities- Primary Spinal stenosis, lumbar region without neurogenic claudication Chronic heart failure with preserved ejection fraction (HCC) Chronic respiratory failure with hypoxia (HCC) Severe persistent asthma, uncomplicated (HCC) Gastroesophageal reflux disease, unspecified whether esophagitis present Morbid (severe) obesity due to excess calories ([facility]) RLS (restless legs syndrome) Restless legs syndrome (RLS) Candidiasis Moderate episode of recurrent major depressive disorder (HCC)- Primary Pulmonary emphysema, unspecified emphysema type (HCC) Chronic respiratory failure with hypoxia (HCC) Morbid (severe) obesity due to excess calories ([facility]) Restless leg syndrome Restless legs syndrome (RLS) Moderate episode of recurrent major depressive disorder (HCC)- Primary documented in this encounter [facility] HealthcareEvaluation note* Diagnosis Moderate [...] Morbid obesity with BMI of 40.0-44.9, adult ([facility]) Hospital discharge follow-up- [...] Morbid obesity with BMI of 40.0-44.9, adult ([facility]) Opioid use Chronic, continuous use of opioids Chronic back pain greater than 3 months duration Urge incontinence- Primary Morbid obesity with BMI of 40.0-44.9, adult ([facility]) 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 Stage 3a chronic kidney disease ([facility]) Chronic respiratory failure with hypoxia ([facility]) Chronic obstructive pulmonary disease with acute lower respiratory infection (HCC)- Primary Primary HSV infection of mouth Pulmonary emphysema, unspecified emphysema type (HCC)- Primary Flu-like symptoms- Primary Morbid (severe) obesity due to excess calories ([facility]) Body mass index (BMI) 40.0-44.9, adult ([facility]) Pulmonary emphysema, unspecified [...] hypertension (HCC) Chronic kidney disease, stage 3a ([facility]) Morbid (severe) obesity due to excess calories ([facility]) Screening mammogram [...] to excess calories ([facility]) RLS (restless legs syndrome) Restless legs syndrome (RLS) Candidiasis Moderate episode of recurrent major depressive disorder (HCC)- Primary Pulmonary emphysema, unspecified emphysema type (HCC) Chronic respiratory failure with hypoxia (HCC) Morbid (severe) obesity due to excess calories ([facility]) Restless leg syndrome Restless legs syndrome (RLS) Chronic bilateral low back pain without sciatica documented in this encounter [facility] HealthcareEvaluation note* Diagnosis Moderate [...] Morbid obesity with BMI of 40.0-44.9, adult ([facility]) Hospital discharge follow-up- [...] Morbid obesity with BMI of 40.0-44.9, adult ([facility]) Opioid use Chronic, continuous use of opioids Chronic back pain greater than 3 months duration Urge incontinence- Primary Morbid obesity with BMI of 40.0-44.9, adult ([facility]) 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 Stage 3a chronic kidney disease ([facility]) Chronic respiratory failure with hypoxia (HCC) Chronic obstructive pulmonary disease with acute lower respiratory infection (HCC)- Primary Primary HSV infection of mouth Pulmonary emphysema, unspecified emphysema type ([facility])- Primary Flu-like symptoms- Primary Morbid (severe) obesity due to excess calories ([facility]) Body mass index (BMI) 40.0-44.9, adult ([facility]) Pulmonary emphysema, unspecified emphysema type ([facility] [...] hypertension (HCC) Chronic kidney disease, stage 3a ([facility]) Morbid (severe) obesity due to excess calories ([facility]) Screening mammogram for breast cancer Moderate episode of recurrent major depressive disorder ([facility]) Edema of both lower extremities- Primary Spinal stenosis, lumbar region without neurogenic claudication Chronic heart failure with preserved ejection fraction (HCC) Chronic respiratory failure with hypoxia ([facility]) Severe persistent asthma, uncomplicated (HCC) Gastroesophageal reflux disease, unspecified whether esophagitis present Morbid (severe) obesity due to excess calories ([facility]) RLS (restless legs syndrome) Restless legs syndrome (RLS) Candidiasis Moderate episode of recurrent major depressive disorder (HCC)- Primary Pulmonary emphysema, unspecified emphysema type (HCC) Chronic respiratory failure with hypoxia (HCC) Morbid (severe) obesity due to excess calories ([facility]) Restless leg syndrome [...] Morbid obesity with BMI of 40.0-44.9, adult ([facility]) Hospital discharge follow-up- [...] Morbid obesity with BMI of 40.0-44.9, adult ([facility]) Opioid use Chronic, continuous use of opioids Chronic back pain greater than 3 months duration Urge incontinence- Primary Morbid obesity with BMI of 40.0-44.9, adult ([facility]) 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 Stage 3a chronic kidney disease ([facility]) Chronic respiratory failure with hypoxia ([facility]) Chronic obstructive pulmonary disease with acute lower respiratory infection ([facility])- Primary Primary HSV infection of mouth Pulmonary emphysema, unspecified emphysema type ([facility])- Primary Flu-like symptoms- Primary Morbid (severe) obesity due to excess calories ([facility]) Body mass index (BMI) 40.0-44.9, adult ([facility]) Pulmonary emphysema, unspecified [...] hypertension (HCC) Chronic kidney disease, stage 3a ([facility]) Morbid (severe) obesity due to excess calories ([facility]) Screening mammogram for [...] to excess calories ([facility]) RLS (restless legs syndrome) Restless legs syndrome (RLS) Candidiasis Moderate episode of recurrent major depressive disorder (HCC)- Primary Pulmonary emphysema, unspecified emphysema type (HCC) Chronic respiratory failure with hypoxia (HCC) Morbid (severe) obesity due to excess calories ([facility]) Restless leg syndrome Restless legs syndrome (RLS) Chronic heart failure with preserved ejection fraction (HCC)- Primary Edema of both lower extremities documented in this encounter [facility] HealthcareEvaluation note* Diagnosis Moderate [...] Morbid obesity with BMI of 40.0-44.9, adult ([facility]) Hospital discharge follow-up- [...] Morbid obesity with BMI of 40.0-44.9, adult ([facility]) Opioid use Chronic, continuous use of opioids Chronic back pain greater than 3 months duration Urge incontinence- Primary Morbid obesity with BMI of 40.0-44.9, adult ([facility]) 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 Stage 3a chronic kidney disease ([facility]) Chronic respiratory failure with hypoxia (HCC) Chronic obstructive pulmonary disease with acute lower respiratory infection (HCC)- Primary Primary HSV infection of mouth Pulmonary emphysema, unspecified emphysema type (HCC)- Primary Flu-like symptoms- Primary Morbid (severe) obesity due to excess calories ([facility]) Body mass index (BMI) 40.0-44.9, adult ([facility]) Pulmonary emphysema, [...] [facility] Chronic kidney disease, stage 3a ([facility]) Morbid (severe) obesity due to excess calories ([facility]) Screening mammogram for breast cancer Moderate episode of recurrent major depressive disorder ([facility]) Edema of both lower extremities- Primary Spinal stenosis, lumbar region without neurogenic claudication Chronic heart failure with preserved ejection fraction (HCC) Chronic respiratory failure with hypoxia ([facility]) Severe persistent asthma, uncomplicated ([facility]) Gastroesophageal reflux disease, unspecified whether esophagitis present Morbid (severe) obesity due to excess calories ([facility]) RLS (restless legs syndrome) Restless legs syndrome (RLS) Candidiasis Moderate episode of recurrent major depressive disorder (HCC)- Primary Pulmonary emphysema, unspecified emphysema type (HCC) Chronic respiratory failure with hypoxia (HCC) Morbid (severe) obesity due to excess calories ([facility]) Restless leg syndrome Restless legs syndrome (RLS) Moderate episode of recurrent major depressive disorder (HCC)- Primary Morbid (severe) obesity due to excess calories ([facility]) Candidiasis of breast Skin pustule Unspecified local infection of skin and subcutaneous tissue RLS (restless legs syndrome) Restless legs syndrome (RLS) documented in this encounter [facility] HealthcareEvaluation note* Diagnosis Moderate [...] Morbid obesity with BMI of 40.0-44.9, adult ([facility]) Hospital discharge follow-up- [...] Morbid obesity with BMI of 40.0-44.9, adult ([facility]) Opioid use Chronic, continuous use of opioids Chronic back pain greater than 3 months duration Urge incontinence- Primary Morbid obesity with BMI of 40.0-44.9, adult ([facility]) 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 Stage 3a chronic kidney disease ([facility]) Chronic respiratory failure with hypoxia ([facility]) Chronic obstructive pulmonary disease with acute lower respiratory infection ([facility])- Primary Primary HSV infection of mouth Pulmonary emphysema, unspecified emphysema type ([facility])- Primary Flu-like symptoms- Primary Morbid (severe) obesity due to excess calories ([facility]) Body mass index (BMI) 40.0-44.9, adult ([facility]) Pulmonary emphysema, unspecified emphysema type ([facility]) Chronic respiratory failure with hypoxia (HCC) Essential [...] hypertension (HCC) Chronic kidney disease, stage 3a ([facility]) Morbid (severe) obesity due to excess calories ([facility]) Screening mammogram for [...] Morbid (severe) obesity due to excess calories ([facility]) RLS (restless legs syndrome) Restless legs syndrome (RLS) Candidiasis Moderate episode of recurrent major depressive disorder (HCC)- Primary Pulmonary emphysema, unspecified emphysema type (HCC) Chronic respiratory failure with hypoxia (HCC) Morbid (severe) obesity due to excess calories ([facility]) Restless leg syndrome Restless legs syndrome (RLS) Moderate episode of recurrent major depressive disorder (HCC)- Primary Morbid (severe) obesity due to excess calories ([facility]) Candidiasis of breast Skin pustule Unspecified local infection of skin and subcutaneous tissue RLS (restless legs syndrome) Restless legs syndrome (RLS) Skin pustule Unspecified local infection of skin and subcutaneous tissue documented in this encounter [facility] HealthcareEvaluation note* Diagnosis Moderate [...] Morbid obesity with BMI of 40.0-44.9, adult ([facility] [place]) Hospital discharge follow-up- [...] Morbid obesity with BMI of 40.0-44.9, adult ([facility]) Opioid use Chronic, continuous use of opioids Chronic back pain greater than 3 months duration Urge incontinence- Primary Morbid obesity with BMI of 40.0-44.9, adult ([facility]) 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 Stage 3a chronic kidney disease ([facility]) Chronic respiratory failure with hypoxia (HCC) Chronic obstructive pulmonary disease with acute lower respiratory infection (HCC)- Primary Primary HSV infection of mouth Pulmonary emphysema, unspecified emphysema type (HCC)- Primary Flu-like symptoms- Primary Morbid (severe) obesity due to excess calories ([facility]) Body mass index (BMI) 40.0-44.9, adult ([facility]) Pulmonary emphysema, [...] hypertension (HCC) Chronic kidney disease, stage 3a ([facility]) Morbid (severe) obesity due to excess calories ([facility]) Screening mammogram [...] to excess calories ([facility]) RLS (restless legs syndrome) Restless legs syndrome (RLS) Candidiasis Moderate episode of recurrent major depressive disorder (HCC)- Primary Pulmonary emphysema, unspecified emphysema type (HCC) Chronic respiratory failure with hypoxia (HCC) Morbid (severe) obesity due to excess calories ([facility]) Restless leg syndrome Restless legs syndrome (RLS) Moderate episode of recurrent major depressive disorder (HCC)- Primary Morbid (severe) obesity due to excess calories ([facility]) Candidiasis of breast Skin pustule Unspecified local infection of skin and subcutaneous tissue RLS (restless legs syndrome) Restless legs syndrome (RLS) Moderate episode of recurrent major depressive disorder (HCC) documented in this encounter [facility] HealthcareEvaluation note* Diagnosis Moderate episode of [...] Morbid obesity with BMI of 40.0-44.9, adult ([facility]) Hospital discharge follow-up- [...] Morbid obesity with BMI of 40.0-44.9, adult ([facility]) Opioid use Chronic, continuous use of opioids Chronic back pain greater than 3 months duration Urge incontinence- Primary Morbid obesity with BMI of 40.0-44.9, adult ([facility]) 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 Stage 3a chronic kidney disease ([facility]) Chronic respiratory failure with hypoxia ([facility]) Chronic obstructive pulmonary disease with acute lower respiratory infection ([facility])- Primary Primary HSV infection of mouth Pulmonary emphysema, unspecified emphysema type ([facility])- Primary Flu-like symptoms- Primary Morbid (severe) obesity due to excess calories ([facility]) Body mass index (BMI) 40.0-44.9, adult ([facility]) Pulmonary emphysema, unspecified [...] hypertension (HCC) Chronic kidney disease, stage 3a ([facility]) Morbid (severe) obesity due to excess calories ([facility]) Screening mammogram for [...] neoplasm of skin documented in this encounter [facility] HealthcareEvaluation note* Diagnosis Onset Date Resolution Status Admit Date Chronic respiratory failure acuteSeptember 2024 8:49amEssential hypertensionacuteSept2024 8:49amHypokalemiaacuteSept2024 8:49amHypomagnesemiaacuteSept2024 8:49amMajor depression, recurrent, chronicacuteSept2024 8:49amMorbid obesity due to excess caloriesacuteSept2024 8:49am [facility] Work Phone: Hishqbv general Narrative - Reported* Type Description Date Medical History Colon Cancer 2003 Medical HistoryCOPDMedical HistoryMRSA IN LEFT HIPMedical HistoryMORBID OBESITY DUE TO EXCESS CALORIESMedical HistoryRESPIRATORY FAILUREMedical HistoryACUTE POSTHEMORRHAGIC ANEMIAMedical 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 HistoryHYPER LIPIDEMIAMedical HistoryMAJOR DEPRESSIVE DISORDERMedical HistoryGERDMedical HistoryMUSCLE SPASMMedical HistoryUNSPECIFIED ASTHMAMedical HistoryDYSPNEASurgical Historyback [id number] History back [id number] Historytubal [id number] Historytubal [id number] Surgical Historyfoot sx111/2014Surgical Historyleft total hip arthoplasty07/2016 Surgical History(R) [facility] - DR SERRATO10/18/2018Surgical History1 INCH OF BONE OFF OF RIGHT [id number] HistoryLEFT HIP RESVISION03/2020Hospitalization Historysee [id number] History1 week during [id number] Hospitalization HistoryISSUE WITH HIP COMING OUT AND NEEDING TO PUT IT BACK IN 08/2019Hospitalization HistoryHIP REVISION03/2020 [employer] Other History general Narrative - Reported* Type Description Date Medical History Colon Cancer 2004 Medical HistoryCOPDMedical HistoryMRSA IN LEFT HIPMedical HistoryMORBID OBESITY DUE TO EXCESS CALORIESMedical HistoryRESPIRATORY FAILUREMedical HistoryACUTE POSTHEMORRHAGIC ANEMIAMedical 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 HistoryHYPER LIPIDEMIAMedical HistoryMAJOR DEPRESSIVE DISORDERMedical HistoryGERDMedical HistoryMUSCLE SPASMMedical HistoryUNSPECIFIED ASTHMAMedical HistoryDYSPNEAMedical HistoryCOVID 04/2023Surgical Historyback [id number] Historyback [id number] Historytubal [id number] Historytubal [id number] Historyfoot sx11/2015Surgical Historyleft total hip arthoplasty07/2016Surgical History(R) [facility] - DR SERRATO10/18/2018 Surgical History1 INCH OF BONE OFF OF RIGHT [id number] HistoryLEFT HIP RESVISION03/2020Hospitalization Historysee [id number] History1 week during [id number] HistoryISSUE WITH HIP COMING OUT AND NEEDING TO PUT IT BACK IN08/2019Hospitalization HistoryHIP REVISION03/2020 Hospitalization HistoryCOVID X 2 WEEKS04/2023 [employer] Other Hospital course Narrative No data available for this section [facility] Hospital Discharge instructions Additional Instructions [...] if you have any problems. -Office number [phone] Work Phone: Hospital Discharge instructions No data available for this section [facility] Hospital Discharge instructionsAmbulatory Orders* Referral to Pulmonology Time Frame: 07/17/25, Location: None [facility] Work Phone: Progress note No data available for this section [facility] reason for referral (narrative)No reason for referral information availableMercy Health St[facility] Work Phone: Advance Directives Advance Directive Response Recorded Date/ Time Advance Directives Yes June 29, 2017 1:43pm Advance Directive Response Recorded Date/ Time Advance Directives Yes June 29, 2017 12:43pm Advance Directive Response Recorded Date/ Time Advance Directives Yes July 10:36am Chief Complaint and Reason for Visit Chief Complaint ^ ^ JEANNE, Anemia of renal disease, htn Chief Complaint ^ ^ Hx of Colon CancerReason for VisitHistory of colon cancer Chief Complaint ^ ^ RENAL 6 month f/uReason for VisitHypokalemia Hypomagnesemia Stage 3 chronic kidney disease COVID [...] failure July 172024 8:49am Essential hypertension July 17 8:49am Hypokalemia July 17, 2025 8:49am Hypomagnesemia July 17, 2025 8:49am Major depression, recurrent, chronic Sep tember 2024 8:49am Morbid obesity due to excess calories Se ptember 2024 8:49am Chief Complaint Admit Date ^ April 26, 2004 7:04 am ^ May 24, 2004 7:08 am 2M July 17, 2025 8:49am Hosp F/U August 04, 2025 10:02am Reason for Visit Admit Date Chronic respiratory failure July 172024 8:49am Essential hypertension July 17 8:49am Hypokalemia July 17, 2025 8:49am Hypomagnesemia July 17, 2025 8:49am Major depression, recurrent, chronic Sep tember 2024 8:49am Morbid obesity due to excess calories Se ptember 2024 8:49am Bilateral lower extremity edema Septembe r 2024 10:02am Chronic GERD without esophagitis Septemb er 2024 10:02am Chronic respiratory failure with hypoxia August 04, 2025 10:02am COPD (chronic obstructive pulmonary dise ase) August 04, 2025 10:02am Morbid obesity due to excess calories Se ptember 2024 10:02am Nausea August 04, 2025 10:02am Stage 3 chronic kidney disease August 04, 2025 10:02am Chief Complaint Admit Date ^ April 26, 2004 7:04 am ^ May 24, 2004 7:08 am 2M July 17, 2025 8:49am Hosp F/U August 04, 2025 10:02am medicare wellness August 18, 2025 8 :39am Reason for Visit Admit Date Chronic respiratory failure July 172024 8:49am Essential hypertension July 17, 025 8:49am Hypokalemia July 17, 2025 8:49am Hypomagnesemia July 17, 2025 8:49am Major depression, recurrent, chronic Sep tember 2024 8:49am Morbid obesity due to excess calories Se ptember 2024 8:49am Bilateral lower extremity edema Septembe r 2024 10:02am Chronic GERD without esophagitis Septemb er 2024 10:02am Chronic respiratory failure with hypoxia August 04, 2025 10:02am COPD (chronic obstructive pulmonary dise ase) August 04, 2025 10:02am Diarrhea August 04, 2025 10:02am Morbid obesity due to excess calories Se ptember 2024 10:02am Nausea August 04, 2025 10:02am Stage 3 chronic kidney disease August 04, 2025 10:02am Chronic respiratory failure with hypoxia August 18, 2025 8:39am Encounter for subsequent mae[facility] wellness visit (AWV) in Medicare patient August 18, 2025 8:39am Morbid obesity due to excess calories Oc tober 2024 8:39am Assessments No Assessments Information Available Summary Purpose Family History Relationship Condition Age at Onset Recorded Date/T gladys father Cardiovascular disease Unknown Not SpecifiedCongestive heart failureUnknown Relationship Condition Age at Onset Recorded Date/T gladys father Cardiovascular disease Unknown Not SpecifiedCongestive heart failureUnknownbrotherHypertensionUnknownfather Heart diseaseUnknownHypertensionUnknownDeceasedUnknownNot SpecifiedHeart disease UnknownsisterHypertensionUnknown Relationship Condition Age at Onset Recorded Date/T gladys father Cardiovascular disease Unknown GlaucomaUnknownDeceasedUnknownHeart diseaseUnknownHypertensionUnknownmother Congestive heart failureUnknownbrotherHypertensionUnknownsisterHypertension Unknown Additional Source Comments Source Comments (unrecognize d section and content) In the event this informatio n is protected by the Federal Confidentiality of Alcohol and Drug Abuse Patient Records regulations: The Federal rules restrict any use of the information to criminally investigate or prosecute any alcohol or drug abuse patient.[facility] HospitalIn the event this information is protected by the Federal Confidentiality of Alcohol and Drug Abuse Patient Records regulations: The Federal rules restrict any use of the information to criminally investigate or prosecute any alcohol or drug abuse patient.[facility] HospitalIn the event this information is protected by the Federal Confidentiality of Alcohol and Drug Abuse Patient Records regulations: The Federal rules restrict any use of the information to criminally investigate or prosecute any alcohol or drug abuse patient.[facility] HospitalIn the event this information is protected by the Federal Confidentiality of Alcohol and Drug Abuse Patient Records regulations: The Federal rules restrict any use of the information to criminally investigate or prosecute any alcohol or drug abuse patient.[facility] INFORMATION SOURCE (unrecogn ized section and content) DATE CREATED AUTHOR 03/03/2022 [facility] DATE CREATED AUTHOR AUTHOR'S ORGANIZ ATION 04/17/2023 [facility] DATE CREATED AUTHOR AUTHOR'S ORGANIZ ATION 10/20/[address] [facility] DATE CREATED AUTHOR AUTHOR'S ORGANIZ ATION 11/18/2024 [facility] DATE CREATED AUTHOR AUTHOR'S ORGANIZ ATION 01/25/2025 [facility] DATE CREATED AUTHOR AUTHOR'S ORGANIZ ATION 03/26/[address] [facility] DATE CREATED AUTHOR AUTHOR'S ORGANIZ ATION 06/20/2025 [facility] DATE CREATED AUTHOR AUTHOR'S ORGANIZ ATION 07/19/2025 [facility] DATE CREATED AUTHOR AUTHOR'S ORGANIZ ATION 07/23/[address] [facility] REASON FOR VISIT (unrecogniz ed section and content) ReasonOnset DateCommentsMedication Gnduhzcf11/07/2024Med Ozpyym444Reason Onset DateCommentsMed Dlryrr224ReasonCommentsMed RefillReasonComments Follow-upShe presents today for a 3 month follow up for her asthma.Reason CommentsSuspicious Skin LesionSpecialtyDiagnoses / ProceduresReferred By Contact Referred To ContactDermatology Diagnoses 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 Pt does do chair exercises four times a week and walks (with walker) but due to her health conditions she is limited. Pt is in a wheelchair with very limited ambulation -SCRReasonOnset DateCommentsMed Aupzvi4407/17/2024 ReasonCommentsCoughNauseaReasonCommentsHospital Qsbrwk-nxBamdmdUtrneppgZyflpg-ud Suspicious Skin LesionReasonCommentsSkin CheckReasonOnset DateCommentsMed Refill 02/26/2025ReasonOnset DateCommentsMed Xrwvqa9204/29/2025ReasonCommentsCOPDReason CommentsSkin CheckSuspicious Skin Lesion Care Teams (unrecognized sec tion and content) Team Status: Inactive Member Role Status Dates Gato Domingo MD Attending Provider Active Jessica Lora ProviderActive Team Status: Active Member Role Status Dates [...] Provider Active Start : March 06, 2024 Jessica Lora Care ProviderActiveStart: March 06, 2024 Team Status: Inactive Member Role Status Dates Shaikh Lev MD Primary Care Provider Active Start: March 14, 2024 End: March 14Kei Vázquez ProviderActiveStart: March 14, 2024 End: March 14, 2024Team MemberRelationshipSpecialtyStart DateEnd Date Tapan Zazueta MD [address] [place] [address] PCP - GeneralFamily Medicine06/10/24 Ariella Mathis DO [address] [place] [address] Referring PhysicianNeurolog01/02/24 Aida Reese NP [address] [place] [address] Nurse PractitionerWinneshiek [facility] Centerly Medicine06/10/24Team MemberRelationshipSpecialtyStart DateEnd Date Tapan Zazueta MD [address] [place] [address] PCP - Generalmily Medicine06/10/24 Ariella Mathis DO [address] [place] [address] Referring PhysicianNeurology2 Aida Reese NP [address] [place] [address] [facility]06/10/24Team MemberRelationshipSpecialtyStart DateEnd Date Tapan Zazueta MD [address] [place] [address] PCP - GeneralWinneshiek Medical Centerly Medicine06/10/24 Ariella Mathis DO [address] [place] [address] Referring PhysicianNeurology2 Aida Reese NP [address] [place] [address] [facility] Pract[facility] Medicine06/10/24Team MemberRelationshipSpecialtyStart DateEnd Date Tapan Zazueta MD [address] [place] [address] PCP - GeneralB[facility] Medicine06/10/24 Ariella Mathis DO [address] [place] [address] Referring PhysicianNeurology2 Aida Reese NP [address] [place] [address] Nurse Pract[facility] Medicine06/10/24Team MemberRelationshipSpecialtyStart DateEnd Date Tapan Zazueta MD [address] [place] [address] PCP - GeneralB[facility] Medicine06/10/24 Ariella Mathis DO [address] [place] [address] Referring PhysicianNeurology2 Aida Reese NP [address] [place] [address] [facility]Fl[facility]06/10/24 Team Status: Active Member Role Status Dates Aida Reese NP-C Primary Care Provider Ac tive Team Status: Active Member Role Status Dates Aida Reese NP-C Primary Care Provider Ac tive Start: June 29, 2024 Farhan Luong ProviderActiveStart: June 29, 2024 Team Status: Active Member Role Status Dates Aida Reese NP-C Primary Care Provider Ac tive Start: August 08, 2024 End: August 12Farhan Santizo ProviderActiveStart: August 08, 2024 End: August 12, 2024JASMYNE Loraeferring ProviderActiveStart: August 08, 2024 End: August 12, 2024 Team Status: Inactive Member Role Status Dates Allan Lacey MD Attending Provider Active Start: September 05, 2024 End: September 05chase Reese [employer]ATOR [employer] Care ProviderActive Start: September 05, 2024 End: September 05, 2024Team MemberRelationshipSpecialtyStart DateEnd Date Tapan Zazueta MD [address] [place] [address] PCP - [facility] Medicine06/10/24 Ariella Mathis DO [address] [place], [place] [address] Referring PhysicianNeurology2 Aida Reese NP [address] [place] [address] Nurse PractitionerB[facility] Medicine06/10/24Team MemberRelationshipSpecialtyStart DateEnd Date Tapan Zazueta MD [address] [place] [address] PCP - GeneralWinneshiek Medical Centerly Medicine06/10/24 Ariella Mathis DO [address] [place], [place] [address] Referring PhysicianNeurology2 Aida Reese NP [address] [place] [address] Nurse PractitionerFamily Medicine06/10/24Team MemberRelationshipSpecialtyStart DateEnd Date Tapan Zazueta MD [address] [place] [address] PCP - Generalmily Medicine06/10/24 Ariella Mathis DO [address] [place] [address] Referring PhysicianNeurology2 Aida Reese NP [address] [place] [address] [facility]Fl[facility]06/10/24Team MemberRelationshipSpecialtyStart DateEnd Date Tapan Zazueta MD [address] [place] [address] PCP - Generalmily Medicine06/10/24 Ariella Mathis DO [address] [place] [address] Referring PhysicianNeurology2 Aida Reese NP [address] [place] [address] [facility] Pract[facility] Medicine06/10/24Team MemberRelationshipSpecialtyStart DateEnd Date Tapan Zazueta MD [address] [place] [address] PCP - GeneralFamily Medicine06/10/24 Ariella Mathis DO [address] [place] [address] Referring PhysicianNeurology2 Aida Reese, RIKKI [address] [place] [address] [facility] Medicine06/10/24Team MemberRelationshipSpecialtyStart DateEnd Date Tapan Zazueta MD [address] [place] [address] PCP - [facility] Medicine06/10/24 Ariella Mathis DO [address] [place] [address] Referring PhysicianNeurology2 Aida Reese NP [address] [place] [address] Nurse Practition[facility]Fl[facility]06/10/24Te MemberRelationshipSpecialtyStart DateEnd Date Tapan Zazueta MD [address] [place] [address] PCP - [facility] Medicine06/10/24 Ariella Mathis DO [address] [place] [address] Referring PhysicianNeangeloy2 Aida Reese NP [address] [place] [address] Nurse PractitionerFamily Medicine06/10/24Team MemberRelationshipSpecialtyStart DateEnd Date Tapan Zazueta MD [address] [place] [address] PCP - Generalmily Medicine06/10/24 Ariella Mathis DO [address] [place] [address] Referring PhysicianNeurology2 Aida Reese, RIKKI [address] [place] [address] Nurse Pract[facility] Medicine06/10/24Team MemberRelationshipSpecialtyStart DateEnd Date Tapan Zazueta MD [address] [place] [address] PCP - Generalmily Medicine06/10/24 Ariella Mathis DO [address] [place] [address] Referring PhysicianNeurology2 Aida Reese, RIKKI [address] [place] [address] Nurse Pract[facility] Medicine06/10/24Team MemberRelationshipSpecialtyStart DateEnd Date Tapan Zazueta MD [address] [place] [address] PCP - Generalmily Medicine06/10/24 Ariella Mathis DO [address] [place] [address] Referring PhysicianNeurology2 Aida Reese, RIKKI [address] [place] [address] Nurse PractitionerWinneshiek Medical Centerly Medicine06/10/24Team MemberRelationshipSpecialtyStart DateEnd Date Tapan Zazueta MD [address] [place] [address] PCP - [facility] Medicine06/10/24 Ariella Mathis DO [address] [place] [address] Referring PhysicianNeurology2 Aida Reese NP [address] [place] [address] Nurse PractitionerFl[facility]06/10/24Team MemberRelationshipSpecialtyStart DateEnd Date Tapan Zazueta MD [address] [place] [address] PCP - [facility] Medicine06/10/24 Ariella Mathis DO [address] [place] [address] Referring PhysicianNeurology2 Aida Reese NP [address] [place] [address] [facility] Pract[facility] Medicine06/10/24Team MemberRelationshipSpecialtyStart DateEnd Date Tapan Zazueta MD [address] [place] [address] PCP - [facility] Medicine06/10/24 Ariella Mathis DO [address] [place] [address] Referring PhysicianNeurology2 Aida Reese, RIKKI [address] [place] [address] Nurse PractitionerFl[facility]06/10/24Team MemberRelationshipSpecialtyStart DateEnd Date Tapan Zazueta MD [address] [place] [address] PCP - [facility] Medicine06/10/24 Ariella Mathis DO [address] [place], [place] [address] Referring PhysicianNeurology2 Aida Reese, RIKKI [address] [place] [address] Nurse Pract[facility] Medicine06/10/24Team MemberRelationshipSpecialtyStart DateEnd Date Tapan Zazueta MD [address] [place] [address] PCP - [facility] Medicine06/10/24 Ariella Mathis DO [address] [place], [place] [address] Referring PhysicianNeurolog01/02/24 Aida Reese NP [address] [place] [address] Nurse Pract[facility]Fl[facility]06/10/24 Team Status: Inactive Member Role Status Dates Allan Lacey MD Attending Provider Active Start: September 12, 2024 End: September 12chase Reese NP-[facility] Care ProviderActive Start: September 12, 2024 End: September 12, 2024Team MemberRelationshipSpecialtyStart DateEnd Date Tapan Zazueta MD [address] [place] [address] PCP - [facility] Medicine06/10/24 Ariella Mathis DO [address] [place] [address] Referring PhysicianNeurolog01/02/24 Aida Reese NP [address] [place] [address] Nurse PractitionerFl[facility]06/10/24Team MemberRelationshipSpecialtyStart DateEnd Date Tapan Zazueta MD [address] [place] [address] PCP - [facility] Medicine06/10/24 Ariella Mathis DO [address] [place], [place] [address] Referring PhysicianNeurology2 Aida Reese NP [address] [place] [address] [facility] Medicine06/10/24Team MemberRelationshipSpecialtyStart DateEnd Date Tapan Zazueta MD [address] [place] [address] PCP - [facility] Medicine06/10/24 Ariella Matihs DO [address] [place], [place] [address] Referring PhysicianNeurology2 Aida Reese NP [address] [place] [address] Nurse Pract[facility]Fl[facility]06/10/24Team MemberRelationshipSpecialtyStart DateEnd Date Tapan Zazueta MD [address] [place] [address] PCP - [facility] Medicine06/10/24 Ariella Mathis DO [address] [place] [address] Referring PhysicianNeurology2 Aida Reese NP [address] [place] [address] [facility] Medicine06/10/24Team MemberRelationshipSpecialtyStart DateEnd Date Tapan Zazueta MD [address] [place] [address] PCP - GeneralFamily Medicine06/10/24 Ariella Mathis DO [address] [place] [address] Referring PhysicianNeurology2 Aida Reese NP [address] [place] [address] Nurse Practitionermily Medicine06/10/24Team MemberRelationshipSpecialtyStart DateEnd Date Tapan Zazueta MD [address] [place] [address] PCP - GeneralFamily Medicine06/10/24 Ariella Mathis DO [address] [place] [address] Referring PhysicianNeurolog01/02/24 Aida Reese NP [address] [place] [address] Nurse PractitionerWinneshiek [facility] Centerly Medicine06/10/24Team MemberRelationshipSpecialtyStart DateEnd Date Tapan Zazueta MD [address] [place] [address] PCP - GeneralFamily Medicine06/10/24 Ariella Mathis DO [address] [place] [address] Referring PhysicianNemahamedlogy2 Aida Reese NP [address] [place] [address] Nurse PractitionerWinneshiek [facility] Centerly Medicine06/10/24Team MemberRelationshipSpecialtyStart DateEnd Date Tapan Zazueta MD [address] [place] [address] PCP - GeneralFamily Medicine06/10/24 Ariella Mathis DO [address] [place] [address] Referring PhysicianNeurology2 Aida Reese, RIKKI [address] [place] [address] Nurse Pract[facility]06/10/24Team MemberRelationshipSpecialtyStart DateEnd Date Tapan Zazueta MD [address] [place] [address] PCP - Generalmily Medicine06/10/24 Ariella Mathis DO [address] [place] [address] Referring PhysicianNeurology2 Aida Reese, RIKKI [address] [place] [address] [facility] Medicine06/10/24Team MemberRelationshipSpecialtyStart DateEnd Date Tapan Zazueta MD [address] [place] [address] PCP - GeneralFamily Medicine06/10/24 Ariella Mathis DO [address] [place] [address] Referring PhysicianNeurology2 Aida Reese NP [address] [place] [address] Nurse PractitionerWinneshiek [facility] Centerly Medicine06/10/24Team MemberRelationshipSpecialtyStart DateEnd Date Tapan Zazueta MD [address] [place] [address] PCP - Generalmily Medicine06/10/24 Ariella Mathis DO [address] [place] [address] Referring PhysicianNeurology2 Aida Reese NP [address] [place] [address] [facility] Medicine06/10/24Team MemberRelationshipSpecialtyStart DateEnd Date Tapan Zazueta MD [address] [place] [address] PCP - GeneralFamily Medicine06/10/24 Ariella Mathis DO [address] [place] [address] Referring PhysicianNeurology2 Aida Reese NP [address] [place] [address] [facility] Medicine06/10/24Team MemberRelationshipSpecialtyStart DateEnd Date Tapan Zazueta MD [address] [place] [address] PCP - Generalmily Medicine06/10/24 Ariella Mathis DO [address] [place] [address] Referring PhysicianNeurology2 Aida Reese NP [address] [place] [address] Nurse Pract[facility]Fl[facility]06/10/24Team MemberRelationshipSpecialtyStart DateEnd Date Tapan Zazueta MD [address] [place] [address] PCP - Generalmi Medicine06/10/24 Ariella Mathis DO [address] [place] [address] Referring PhysicianNeurolog01/02/24 Aida Reese NP [address] [place] [address] Nurse Pract[facility]Fl[facility]06/10/24Team MemberRelationshipSpecialtyStart DateEnd Date Tapan Zazueta MD [address] [place] [address] PCP - [facility] Medicine06/10/24 Ariella Mathis DO [address] [place] [address] Referring PhysicianNemahamedlogy2 Aida Reese NP [address] [place] [address] Nurse Pract[facility] Medicine06/10/24Team MemberRelationshipSpecialtyStart DateEnd Date Tapan Zazueta MD [address] [place] [address] PCP - GeneralFamily Medicine06/10/24 Ariella Mathis DO [address] [place] [address] Referring PhysicianNeurology2 Aida Reese NP [address] [place] [address] Nurse Pract[facility]Fl[facility]06/10/24Team MemberRelationshipSpecialtyStart DateEnd Date Tapan Zazueta MD [address] [place] [address] PCP - Generalmi Medicine06/10/24 Ariella Mathis DO [address] [place] [address] Referring PhysicianNeurology2 Aida Reese NP [address] [place] [address] Nurse Pract[facility]06/10/24Team MemberRelationshipSpecialtyStart DateEnd Date Tapan Zazueta MD [address] [place] [address] PCP - [facility] Medicine06/10/24 Ariella Mathis DO [address] [place] [address] Referring PhysicianNeurology2 Aida Reese NP [address] [place] [address] Nurse PractitionerWinneshiek [facility] Centerly Medicine06/10/24Team MemberRelationshipSpecialtyStart DateEnd Date Tapan Zazueta MD [address] [place] [address] PCP - GeneralFamily Medicine06/10/24 Ariella Mathis DO [address] [place] [address] Referring PhysicianNeurology2 Aida Reese NP [address] [place] [address] [facility] Medicine06/10/24Team MemberRelationshipSpecialtyStart DateEnd Date Tapan Zazueta MD [address] [place] [address] PCP - GeneralFamily Medicine06/10/24 Ariella Mathis DO [address] [place] [address] Referring PhysicianNeurology2 Aida Reese NP [address] [place] [address] [facility] Medicine06/10/24Team MemberRelationshipSpecialtyStart DateEnd Date Tapan Zazueta MD [address] [place] [address] PCP - GeneralFamily Medicine06/10/24 Ariella Mathis DO [address] [place] [address] Referring PhysicianNeurology2 Aida Reese NP [address] [place] [address] [facility] Medicine06/10/24Team MemberRelationshipSpecialtyStart DateEnd Date Tapan Zazueta MD [address] [place] [address] PCP - GeneralFamily Medicine06/10/24 Ariella Mathis DO [address] [place] [address] Referring PhysicianNeurolog01/02/24 Aida Reese NP [address] [place] [address] Nurse Pract[facility]06/10/24Team MemberRelationshipSpecialtyStart DateEnd Date Tapan Zazueta MD [address] [place] [address] PCP - Generalmi Medicine06/10/24 Ariella Mathis DO [address] [place] [address] Referring PhysicianNemahamedlogy2 Aida Reese NP [address] [place] [address] [facility]06/10/24Team MemberRelationshipSpecialtyStart DateEnd Date Tapan Zazueta MD [address] [place] [address] PCP - Generalmily Medicine06/10/24 Ariella Mathis DO [address] [place] [address] Referring PhysicianNeurology2 Aida Reese NP [address] [place] [address] Nurse Pract[facility]Fl[facility]06/10/24Team MemberRelationshipSpecialtyStart DateEnd Date Tapan Zazueta MD [address] [place] [address] PCP - [facility]06/10/24 Ariella Mathis DO [address] [place] [address] Referring PhysicianNeurology2 Aida Reese NP [address] [place] [address] Nurse Pract[facility]erB[facility] Medicine06/10/24 Team Status: Active Member Role Status Dates Kaylene López NP-C Primary Care Provider Active Team Status: Active Member Role Status Dates KELI Ag Primary Care Provider Ac tive Start: July 09, 2025 Nicolas Dickinson DOAttending ProviderActiveStart: July 09, 2025 Team Status: Inactive Member Role Status Dates Kaylene López NP-C Primary Care Provider Active Start: July 17, 2025 End: July 17, 2025FAMILIA SextonCAtvivienne ProviderActiveStart: July 17, 2025 End: July 17, 2025 Team Status: Active Member Role Status Dates KELI Sexton Primary Care Provider Active Start: July 18, 2025 Pankaj Sexton ProviderActiveStart: July 18, 2025 Team Status: Inactive Member Role Status Dates KELI Sexton Primary Care Provider Active Start: August 04, 2025 End: August 04, 2025Pankaj Sexton ProviderActiveStart: August 04, 2025 End: August 04, 2025Team MemberRelationshipSpecialtyStart DateEnd Date Tapan Zazueta MD [address] [place] [address] PCP - Generalmily Medicine06/10/24 Ariella Mathis DO [address] [place] [address] Referring PhysicianNeurolog01/02/24 Aida Reese NP [address] [place] [address] Nurse Practitionermi Medicine06/10/24 Team Status: Inactive Member Role Status Dates KELI Sexton Primary Care Provider Active Start: August 18, 2025 End: August 18, 2025Pankaj Sexton ProviderActiveStart: August 18, 2025 End: August 18, 2025 Goals (unrecognized section and content) Goals [...] BE BASED ON THE PRIMARY CLINICAL RECORDS. [facility]. provides no warranty or guarantee of the accuracy or completeness of information in this document.
[2025-09-03 15:13] LABS: Anion Gap 11.3; Blood Urea Nitrogen 9.0 mg/dL (7.0-18.0); Calcium 8.8 mg/dL (8.5-10.1); Carbon Dioxide 26.5 mmol/L (21.0-32.0); Chloride 105 mmol/L (98-107); Estimated GFR (African America >60 (>=60 mL/min/1.73m^2); Estimated GFR (Non-African Ame 50 (>=60 mL/min/1.73m^2); Glucose 96 mg/dL (74-106); Potassium 3.8 mmol/L (3.5-5.1); Sodium 139 mmol/L (136-145)
== END 2025-09-03 13:43 | disposition home or self-care (01) ==
LOC: LAB 13:43
PROVIDERS: PCP Nurse Practitioner; Visit Provider Nurse Practitioner
DX: E87.6 Hypokalemia (principal)
CPT/HCPCS: 36415; 80048

== ENCOUNTER 2025-09-14 11:20 | Emergency (ER) | payer MEDICARE, MEDICAID, SELFPAY ==
--- OUTSIDE RECORDS SUMMARY | 2018-10-04 04:00 | XMS_ITS | Continuity of Care Document ---
Author Organization [facility] Address [address] [place] [address] Phone Care Team Providers Care Director Of Food And Nutrition Services Name Role Phone Tino Montelongo DDS Unavailable Unavailabl e Allergies, Adverse Reactions, Alerts Substance Reaction Status Criticality No Known Allergies Active No Inform ation Medications Medication Instructions Dosage Effective Dates (start - stop) Status Comments Qbrelis 1 mg/mL oral solution take 10 milliliter by oral route every day 10 MG - Active Norvasc 2.5 mg tablet take 1 tablet by oral route every day 2.5 MG - Active loratadine 10 mg capsule - Active Pepcid 20 mg tablet take 1 tablet by ora l route 2 times every day 20 MG - Active omeprazole 10 mg capsule,delayed release take 2 capsule by oral route every day before a meal 20 MG - Active clonazepam 0.5 mg tablet take 1 tablet by oral route 2 times every day 0.5 MG - Active Mobic 7.5 mg tablet take 1 tablet by ora l route every day - Active ProAir RespiClick 90 mcg/actuation breath activated inhale 2 puff by inhalation route every 4 - 6 hours as needed 180 MCG - Active Procedures Procedure Date Post Op Visit Dental Extract; Erupted Th/exposted Rt Nov-15-2 018 Extract; Erupted Th/exposted Rt Nov-15-2 018 Extract; Erupted Th/exposted Rt Nov-15-2 018 Extract; Erupted Th/exposted Rt Nov-15-2 018 Extract; Erupted Th/exposted Rt Nov-15-2 018 Extract; Erupted Th/exposted Rt Nov-15-2 018 Nutrit Couns For Control Of [place] Dis Sep Oral Hygiene Instruction Removal Of Torus Mandibularis 8 Extract; Erupted Th/exposted Rt Aug--2 018 Extract; Erupted Th/exposted Rt Aug--2 018 Extract; Erupted Th/exposted Rt Aug--2 018 Extract; Erupted Th/exposted Rt - 018 Extract; Erupted Th/exposted Rt Aug-2 018 Extract; Erupted Th/exposted Rt Aug--2 018 Extract; Erupted Th/exposted Rt Aug--2 018 Extract; Erupted Th/exposted Rt Aug-- 018 Extract; Erupted Th/exposted Rt Aug--2 018 Extract; Erupted Th/exposted Rt Jul--2 018 Extract; Erupted Th/exposted Rt Jul--2 018 Oral Hygiene Instruction Limited Oral Eval Panoramic Film Intraoral-periapical 1st Film 8 Rkparcqot-xlojeppshg-ccom Additional Jun Djofnizbo-ffhapvqilb-wdgk Additional Jun Comp Oral Eval New/estab Patient 2017 Oral Hygiene Instruction Initial Oral Exam Advance Directives Directive Yes / No Effective Date File Name No Information Encounters Encounter Description Practice Location Reason(s) For Visit Diagnoses Date Provider Providers Copied on Encounter [facility], [address] [place] [address], [id number] , tel:[phone] Dental Clinic post opt (chief complaint) Encounter for screening for dental disorders 8 Reginald Jiménez. [address] [place], [place], [id number], [place]. tel:[phone] [facility], [address] [place] [address], [id number] , tel:[phone] Dental Clinic extraction (chief complaint) Encounter for screening for dental disorders 8 Tigist Bahena. [address] [place] [address], [id number], [place]. tel:[phone] [facility], [address] [place], [place], [id number] , [place] tel:[phone] Dental Clinic Encounter for screening for dental disorders 8 Tigist Bahena. [address] [place], [place], [id number], [place]. tel:[phone] [facility], [address] [place] [address], [id number] , [place] tel:[phone] Dental Clinic EXT (chief complaint) Encounter for screening for dental disorders 8 Bobbyasanisabelan DMD Deepasulochana. [address] [place], [address], [place]. tel:[phone] [facility], [address] [place] [address], [id number] , [place] tel:[phone] Dental Clinic Dental Limited (chief complaint) Encounter for screening for dental disorders 8 Sivasankaraganesan DMD Deepasulochana. [address] [place], [address], [place]. tel:[phone] [facility], [address] [place] [address], [id number] , [place] tel:[phone] Dental Clinic Dental New (chief complaint) Encounter for screening for dental disorders 8 Sivasanisabelan DMD Deepasulochana. [address] [place] [address], [id number], [place]. tel:[phone] Family History Family Member Type Diagnosis Age At Onset Father Problem (finding) Cardiovascular disease Mother Problem (finding) Cardiovascular disease Payers Payer name Insurance type Covered alliance party ID Authoriza tion(s) No Information Social History Type Description Quantity Date Captured Comments Alcohol Use Details Unknown Caffeine Use Details Unknown Tobacco Use Status Current non-smoker 19 Smoking Status Never smoker Non-Smoking Tobacco Use Details : No Details Available : No Details Available [id number] SexFemaleSexual OrientationStraight or [id number] Gender [id number] Vital Signs Date / Time: Height Weight BMI Pulse Rate Blood Pressure Temperature Respiratory Rate Body Surface Area Head Circumference Head Circ. Percentile Wt./Benitez. Percentile BMI percentile Pulse Ox Inhaled Ox 9:37 AM 67 /min 122/76 mm[Hg] Chief Complaint And Reason For Visit From encounter dated '10/04/2018 09:00'. post opt (chief complaint). Description: post opt Reason For Referral Reason For Referral No Information History Of Present Illness Encounter Date Complaint History Of Prese nt Illness post opt post opt extraction extraction lower s EXT EXT Dental Limited Dental Limited Dental New Dental new Functional Status Date Functional Assessmen t No Information Instructions Date Instruction Additional Infor mation No Information Assessments Type Assessment Date assessment Encounter for screening for dent al disorders Patient Care Teams Name Effective Dates (start - stop) Status Members No Information
--- OUTSIDE RECORDS SUMMARY | 2025-01-15 06:00 | XMS_ITS ---
Author Organization The [facility] in [place] Address [address] [place] [address] Care Team Providers Care Reporting Coordinator Name Role Phone Kaylene López CNP Primary Care Provider Unavail Corbin Garcia Unavailable [phone] REASON FOR VISIT HOSPITAL F/U Encounters Encounter Location Date Provider Diagnosis Pulmonary Medicine [place] [address] [place] [address] 01/15/2025 Corbin Lopes Plan Of Treatment No Information Progress Notes * [place] CHAMPION ADOB: (70 yo F)Acc No.[id number]:01/15/2025 UNLOCKED PROGRESS NOTE Progress Note Patient: [place] AMARAL :?Corbin Lopes DODOB:1955???Age:69 Y ???Sex:FemaleDate:01/15/2025Phone:[phone]:[address], [address], [place], [phone]:Kaylene López CNP Subjective: * Chief Complaints: * 1 . HOSPITAL F/U. * Medical History: Objective: * Vitals: Assessment: Plan: * Treatment: * * Electronic signature of Corbin Lopes DO on 09/14/2025 at 11:28 AM ESTSign off status: PendingVisit Status:?R/S (Rescheduled) * Provider: Jona Lopes DO Date: 0 01/15/2025 Generated for Printing/Faxing/eTransmitting on:?09/14/2025 11:28 AM EST
--- OUTSIDE RECORDS SUMMARY | 2025-01-22 04:00 | XMS_ITS ---
Author Organization The [facility] in [place] Address [address] [place] [address] Care Team Providers Care Information Management Specialist Name Role Phone Kaylene López CNP Primary Care Provider Unavail [place]bin Garcia Unavailable [phone] REASON FOR VISIT 3 Mos f/u COPD Encounters Encounter Location Date Provider Diagnosis Pulmonary Medicine [address] [address] 01/22/2025 Corbin Lopes Plan Of Treatment No Information Progress Notes * [place] CHAMPION ADOB: (70 yo F)Acc No.[id number]:01/22/2025 UNLOCKED PROGRESS NOTE Follow Up Patient: [place] AMARAL :?Corbinkrishna Lopes DODOB:1955???Age:69 Y ???Sex:FemaleDate:01/22/2025Phone:[phone]:[address], [address], [place], [phone]:Kaylene López CNP Subjective: * Chief Complaints: * 1 . 3 Mos f/u COPD. * Medical History: Objective: * Vitals: Assessment: Plan: * Treatment: * * Electronic signature of Corbin Lopes DO on 09/14/2025 at 11:28 AM ESTSign off status: PendingVisit Status:?R/S By O/P (Rescheduled by Office/Provider) * Provider: Jona Lopes DO Date: 0 01/22/2025 Generated for Printing/Faxing/eTransmitting on:?09/14/2025 11:28 AM EST
--- OUTSIDE RECORDS SUMMARY | 2025-07-02 05:30 | XMS_ITS ---
Author Organization [facility] in [place] Address [address] [place] [address] Care Team Providers Care Inspector Aide Name Role Phone Kaylene López CNP Primary Care Provider Unavail Corbin Garcia Unavailable [phone] REASON FOR VISIT 3m F/U - COPD Encounters Encounter Location Date Provider Diagnosis Pulmonary Medicine [address] [address] 07/02/2025 Corbin Lopes Plan Of Treatment No Information Progress Notes * Diana CHAMPION ADOB: (70 yo F)Acc No.[id number]:07/02/2025 UNLOCKED PROGRESS NOTE Follow Up Patient: Diana AMARAL :?Corbinkrishna Lopes DODOB:1955???Age:69 Y ???Sex:FemaleDate:07/02/2025Phone:[phone]:[address], [address], [place], [id number]:Kaylene López CNP Subjective: * Chief Complaints: * 1 . 3m F/U - COPD. * Medical History: Objective: * Vitals: Assessment: Plan: * Treatment: * * Electronic signature of Corbin Lopes DO on 09/14/2025 at 11:27 AM ESTSign off status: PendingVisit Status:?OFF CANC (OFFICE CANCEL) * Provider: Jona Lopes DO Date: 0 07/02/2025 Generated for Printing/Faxing/eTransmitting on:?09/14/2025 11:27 AM EST
--- OUTSIDE RECORDS SUMMARY | 2025-09-14 11:28 | XMS_ITS | Encounter Summary ---
Author Organization [facility] Address [address] [facility] [place] [address] Care Team Providers Care Cutting Inspector Name Role Phone Shaikh BONNY Ohara Primary Care Provider [phone] Shaikh BONNY Ohara Primary Care Provider [phone] Ariella Mathis DO Unavailable [phone] Tapan Barboza MD Primary Care Provider [phone] Mae Reese RECLAMATION ENGINEER Unavailable [phone] Encounter Details DateTypeDepartmentCare Team (Latest Contact Info)Chcvbxmylcj46/20/2023linisync Result Encounter [facility] External Department Unsolicited Provider, Generic External Data Social History Tobacco UseTypesPacks/DayYears UsedDateSmoking Tobacco: NeverSmokeless Tobacco: NeverAlcohol UseStandard Drinks/WeekCommentsNever0 (1 standard drink = 0.6 oz pure alcohol)caffeine: more than 4 cups per [id number] Health LiteracyAnswerDate RecordedHow often do you need [...] times a week11/25/2024How often do you attend denominational or uatsdin services?More than 4 times per year 11/25/2024Do you belong to any clubs or organizations such as denominational groups, unions, fraternal or athletic groups, or school groups?No11/25/2024How often do you attend meetings of the clubs or organizations you belong to?Never11/25/2024 Are you , , , , never , or living with a partner?Bnqvhqae72/20/2025UDIT-CAnswerDate RecordedQ1: How often do you have a [...] care, and heating?Somewhat hard11/25/2024PHQ-2AnswerDate RecordedPatient Health Questionnaire-2 Nbmxn014Fincentral [facility] medical center [place] of Occupational Health - Occupational Stress QuestionnaireAnswerDate RecordedDo you feel stress - tense, restless, nervous, or anxious, or unable to sleep at night because yourmind is troubled all the time - these days?Only a pacfpy7711/25/2024Exercise Vital Sign AnswerDate RecordedOn average, how many [...] steady place to sleep or slept in [facility] (including now)?No 10/26/2023Housing Stability Vital SignAnswerDate RecordedIn the last 12 months, was there a time when you were not able to pay the mortgage or rent on time?No 11/25/2024In the past 12 months, how many times have you moved where you were living?t any time in the past 12 months, were you homeless or living in a custodial (including now)?No11/25/2024CommentsUnknownSex and Gender InformationValueDate RecordedSex Assigned at BirthNot on fileLegal SexFemale 01/18/2023 7:03 PM EDTGender IdentityNot on fileSexual OrientationNot on file documented as of this encounter Functional Status * AUDIT-C ScoreAnswerDate of FehtiwwagkFigwxm580/20/2025 4:37 PM ESTMychart, Generic * Q1: How often do you have a drink containing alcohol?AnswerDate of Assessment SrbxbgBcrmb59/20/2025 4:37 PM Terrence Landrum * Q2: How many drinks containing alcohol do you have on a typical day when you are drinking?AnswerDate of AssessmentAuthorPatient does not drink11/25/2024 4:37 PM Lucita Generic * Q3: How often do you have six or more drinks on one occasion?AnswerDate of JdnywucebzKeijykJvevi46/20/2025 4:37 PM Lucita Generic * Over the past 2 weeks, how often have you been bothered by any of the following problems?QuestionAnswerDate of AssessmentAuthorLittle interest or pleasure in doing thingsNot at all07/11/2024 8:26 AM Tony Camarillo MA Feeling down, depressed, or hopelessNot at all07/11/2024 8:26 AM Tony Camarillo MAPatient Health Questionnaire-2 Pdbxo133 8:26 AM Tony Camarillo MA * QuestionAnswerDate of AssessmentAuthorTrouble falling or staying asleep, or sleeping too muchSeveral days11/02/2023 3:03 PM Shaikh Gomez MDFeeling tired or having little energySeveral days11/02/2023 3:03 PM Shaikh Gomez MDPoor appetite or overeatingSeveral days11/02/2023 3:03 PM Shaikh Gomez MDFeeling bad about yourself - or that you are a failure or have let yourself or your family downNot at all11/02/2023 3:03 PM Shaikh Gomez MDTrouble concentrating on things, such as reading the newspaper or watching television Not at all11/02/2023 3:03 PM Shaikh Gomez MDMoviwilli or speaking so slowly that other people could have noticed? Or the opposite - being so fidgety or restless that you have been moving around a lot more than usual.Not at all 11/02/2023 3:03 PM ESTFawwad, Saunders, MDThoughts that you would be better off or hurting yourself in some wayNot at all11/02/2023 3:03 PM Shaikh Gomez MDPatient Health Questionnaire-9 Ukrgc93801/03/2023 3:03 PM Shaikh Gomez MD documented as of this encounter Plan of Treatment DateTypeDepartmentCare Team (Latest Contact Info)Ymbyfrbzjev03/10/2026 8:45 AM EDTOffice Visit [facility] [address] [place] [address] Denise Lazo MD [address] [place] [address] 12/15/2026 9:00 AM ESTOffice Visit [facility] [address] [place] [address] Yuri Bowers PA [address] [place] [address] documented as of this encounter Procedures Procedure NamePriorityDate/TimeAssociated DiagnosisCommentsXR CHEST 2V112/26/2022 9:45 AM EST documented in this encounter Results * XR CHEST 2V (10/25/2023 9:45 AM EST)Anatomical RegionLateralityModalityOther Specimen (Source)Anatomical Location / LateralityCollection Method / Volume Collection TimeReceived Time10/25/2023 9:45 AM EST Narrative 10/25/2023 9:48 AM EST [facility] ?[address] ? [place] [id number] ?XRay Report ? Signed ? Patient: CHAMPION,DIANA A ?MR#: [id number] ?? : 1955 ?Acct:[id number] ?? Age/Sex: 68 / F ?ADM Date: 10/25/23 ?? Loc: RAD ? Attending Dr: Bo Mcclain D.O. ? Ordering Physician: Bo Mcclain D.O. ?? Date of Service: 10/25/23 ?? Procedure(s): XR chest 2V ?? Accession Number(s): [id number] ? cc: Shaikh Eva Ohara; Bo Mcclain D.O. ? [facility] ? [address] ? [place] [address] ? Patient Name: ?? DIANA CHAMPION ? MRN: [facility]:[id number] ? date: 1955 ?Sex: F ?? Assigned Patient Location: RAD ?? Current Patient Location: RAD ?? Accession/Order Number: [id number] ?? Exam Date: 10/25/2023 ??09:31 ?Report Date: 10/25/2023 ??09:45 ? At the request of: ?? BO ??JOHNY ? Procedure: ??XR chest 2V ? EXAM: Chest x-ray ? HISTORY: . acute bronchitis J20.9 . ? COMPARISON: None. ? TECHNIQUE: Frontal and lateral chest ? FINDINGS: Heart is normal in size. There is prominence of the bronchovascular ?? markings. Lungs are free of focal infiltrates. ? No effusions are noted. ? Spondylosis of the spine is noted. ? XR/XR chest 2V ?? IMPRESSION: ? Prominence of the bronchovascular markings suggesting bronchitis. Less likely ?? would be an interstitial pneumonitis. Clinical correlation is suggested. ? Electronically authenticated by: BRITTANY ??DAQUAN ?? Date: 10/25/2023 ??09:45 ? Dictated By: ?Brittany Stephens M.D. ? Signed By: ?10/25/23 0948 ? DD/ 0945 ? TD/TT: ? Assistant Professor Of Biochemistry: Procedure Note Radiology, Radiologist, MD - 10/25/2023 [place] [address] XRay Report Signed Patient: DIANA CHAMPION AMR#: [id number] : 6Acct:[id number] Age/Sex: 68 / FADM Date: 10/25/23 Loc: RAD Attending Dr: Bo Mcclain D.O. Ordering Physician: Bo Mcclain D.O. Date of Service: 10/25/23 Procedure(s): XR chest 2V Accession Number(s): [id number] cc: Shaikh Eva Ohara; Bo Mcclain D.O. The [place] [id number] Patient Name: DIANA CHAMPION MRN: [facility]:[id number] date: 1955 Sex: F Assigned Patient Location: [facility] Current Patient Location: [facility] Accession/Order Number: [id number] Exam Date: 10/25/2023 09:31 Report Date: 10/25/2023 [...] By: Brittany Stephens M.D. Signed By:10/25/2348 DD/ TD/TT: Assistant Professor Of Biochemistry: Authorizing ProviderResult TypeResult StatusGeneric External Data Provider CLINISYNC IMAGINGFinal Result documented in this encounter Visit Diagnoses Not on filedocumented in this encounter Care Teams Team MemberRelationshipSpecialtyStart DateEnd Date Shaikh Ohara MD PCP - GeneralInternal Medicine Shaikh Ohara MD PCP - GeneralInternal Medicine Tapan Barboza MD [address] [place] [address] PCP - GeneralFamily Medicine06/10/24 Ariella Mathis DO [address] [place] [address] Referring PhysicianNeurolog01/02/24 Mae Reese NP Nurse PractitionerFamiCoffee Regional Medical Center06/10/24documented as of this encounter
--- OUTSIDE RECORDS SUMMARY | 2025-09-14 11:28 | XMS_ITS | Clinical Summary ---
Author Organization [employer] tem Address [id number] [address] [place] [address] Care Team Providers Care Efficiency Miner Name Role Phone Timoteo Rainey MD Primary [...] 325 mg by mouth daily with breakfast.Active sbqtdbbb-bkok-KL-calcium &mins (THERAGRAN-M) 9 mg iron-400 mcg tablet [...] (03/26/2019): Added automatically from request for surgery [id number] Arthritis of right knee10/17/2018Lumbar qgutpykizvg25/17/2018 Overview (05/22/2018): Added automatically from request for surgery [id number] Disorder of nwqfyn5301/15/2018 Overview (01/15/2018): Added automatically from request for surgery [id number] Immunizations ImmunizationAdministration DatesNext DuePneumococcal Phioxdimqzwhwn70/14/2018 Family History Medical HistoryRelationNameCommentsNo Known ProblemsBrother 1No [...] glass of wine twice per monthChildcareAnswerDate RecordedChildcare Qedclhz8904/04/2019EmploymentAnswerDate KxkaltyoQardvpbyirDopgnzc08/30/2019Purpose - LifeAnswerDate RecordedPurpose and direction in wtlvAurqlzs49/11/2021 CommentsNoSex and Gender InformationValueDate RecordedSex Assigned at BirthNot on fileLegal FhhHzdcts26/06/2015 11:34 AM EDTGender IdentityNot on fileSexual OrientationNot on file Last Filed Vital Signs Vital SignReadingTime TakenCommentsBlood Tvftpfhi735/5509 8:23 AM EDT Uojgo959707/16/2019 8:23 AM JEKNrpfsqslcfz16.6 ??C (97.8 ??F)05/27/2019 8:52 AM EDTRespiratory Otxz4580 9:20 AM EDTOxygen Otpriuqtaz98%05/27/2019 9:23 AM EDTInhaled Oxygen Concentration--Lxodhq722.2 kg (223 lb)07/16/2019 8:23 AM TJOFjdxqd140.6 cm (5' 4 )05/23/2019 8:08 AM EDTBody Mass Index38.2807 8:08 AM EDT Plan of Treatment Health MaintenanceDue DateLast DoneCommentsDepression Rcuydsakr00/28/1968Tobacco Npopjatqa47/28/1968Adult BMI Zizeoqbeh59/28/1974DTaP,Tdap and Td Vaccines (1 - Tdap)1975Zoster (Shingles) Vaccine (1 of 2)2006Fall Risk Screening 2021Influenza Ebgpsra8907/07/2025RSV ( or age 60+ yrs) (1 - 1-dose 75+ series)2031 Medical Devices ImplantedTypeAreaManufacturerDevice IdentifierShelf Expiration DateModel / Serial / LotCmnt Bn Hvisc Plc Rpl [id number] - Sna - [id number] Implanted:Qty: 1 on 10/18/2018 [facility] KneeHERAEUS MEDICAL [id number] / NA / [id number] Bn Hvisc Plc Rpl [id number] - Sna - [id number] Implanted:Qty: 2 on 10/18/2018 by [facility] Herring Jr[facility]: KneeHERAEUS MEDICAL [id number] / NA / [id number] ImplantOrthopedic ImplantDescription:lumbar fusionOrthopedic ImplantOrthopedic ImplantDescription:left hip Cmpt Ptlr 32mm Nxgn Alply Rpl [id number] + [id number] + [id number] - Sna - [id number] Implanted:Qty: 1 on 10/18/2018 by Jim Herring Jr., DO at [facility] ImplantRight: KneeZimmer Kaqryh7507/06/2026 [id number] / NA / [id number] Artc 3-4 E-F 12mm Kn Fx Rpl [id number] - Sna - [id number] Implanted:Qty: 1 on 10/18/2018 by Jim Herring Jr., DO at [facility] ImplantRight: KneeZimmer Ujgnup2010/05/202298-9792-861-12 / NA / [id number] Fem E Kn Rt Lpsflx Gndr Rpl [id number] - Sna - [id number] Implanted:Qty: 1 on 10/18/2018 by Jim Herring Jr., DO at [facility] ImplantRight: KneeZimmer Maftuc5311/05/2027 [id number] / NA / [id number] Tib 58g07i9kw Nxgn Kn Cmnt Rpl [id number] + [id number] - Sna - [id number] Implanted:Qty: 1 on 10/18/2018 by [facility]ring Jr[facility] KneeZimmer Orrmrg17-2024-715-17 / NA / [id number]oJgvyxg IdentifierShelf Expiration DateModel / Serial / LotScr Bn Chente 35mm 6.5mm Hip St Rpl [id number] + [id number] + 32 - Sna - [id number] Explanted:Qty: 2 [facility]18/2018 [facility]: KneeZimmer Zknwkt30/31/456468-1809-080-54 / NA / [id number] Gd 48mm Qd-Spr Hex Hd Mis - Sna - [id number] Explanted:Qty: 2 on 10/18/2018 by Jim Herring Jr[facility] KneeZimmer Xxewzm56/30/149169-0088-313-67 / NA / [id number] Insurance Advance Directives * Full Code (Latest Code Status on File) Date ActivatedDate LmwwefzvrqiCwxcycuf33/13/2018 1:03 PM10/19/2018 2:33 PM Care Teams Team MemberRelationshipSpecialtyStart DateEnd Date Amburn, Timoteo R, MD [facility]CP [facility]Leon[facility]12/26/17
--- OUTSIDE RECORDS SUMMARY | 2025-09-14 11:28 | XMS_ITS | Encounter Summary ---
Author Organization [facility] Address [address] [facility] [place] [address] Care Team Providers Care Labor Standards Director Name Role Phone Shaikh BONNY Ohara Primary Care Provider [phone] Ariella Mathis DO Unavailable [phone] Tapan Barboza MD Primary Care Provider [phone] Mae Reese MEAT STRINGER Unavailable [phone] Encounter Details DateTypeDepartmentCare Team (Latest Contact Info)Xhcaoesmxrg92/30/2024Clinisync Result Encounter [facility] External Department Unsolicited Provider, Generic External Data Social History Tobacco UseTypesPacks/DayYears UsedDateSmoking Tobacco: NeverPassive Smoke Exposure: NeverSmokeless Tobacco: NeverAlcohol UseStandard Drinks/WeekComments Never0 (1 standard drink = 0.6 oz pure alcohol)caffeine: more than 4 cups per [id number] Health LiteracyAnswerDate RecordedHow often do you need to have someone help you when you read instructions, pamphlets, or other written material from your doctor or pharmacy?Never11/25/2024Humiliation, Afraid, Rape, and Kick questionnaireAnswerDate RecordedWithin the last year, have you been afraid of your partner or ex-partner?No10/26/2023Within the last year, have you been humiliated or emotionally abused in other ways by your partner or ex-partner?No 10/26/2023Within the last year, have you been kicked, [...] times a week11/25/2024How often do you attend sikhism or adventist services?More than 4 times per year 11/25/2024Do you belong to any clubs or organizations such as sikhism groups, unions, fraternal or athletic groups, or school groups?No11/25/2024How often do you attend meetings of the clubs or organizations you belong to?Never11/25/2024 Are you , , , , never , or living with a partner?Ixfdpgwe44/20/2025UDIT-CAnswerDate RecordedQ1: How often do you have a [...] care, and heating?Somewhat hard11/25/2024PHQ-2AnswerDate RecordedPatient Health Questionnaire-2 Quyvm869Finlogan regional hospital [place] of Occupational Health - Occupational Stress QuestionnaireAnswerDate RecordedDo you feel stress - tense, restless, nervous, or anxious, or unable to sleep at night because yourmind is troubled all the time - these days?Only a sxuipt3111/25/2024Exercise Vital Sign AnswerDate RecordedOn average, how many [...] steady place to sleep or slept in [place] (including now)?No 10/26/2023Housing Stability Vital SignAnswerDate RecordedIn the last 12 months, was there a time when you were not able to pay the mortgage or rent on time?No 11/25/2024In the past 12 months, how many times have you moved where you were living?t any time in the past 12 months, were you homeless or living in a [facility]p (including now)?No11/25/2024CommentsUnknownSex and Gender InformationValueDate RecordedSex Assigned at BirthNot on fileLegal SexFemale 01/18/2023 7:03 PM EDTGender IdentityNot on fileSexual OrientationNot on file documented as of this encounter Functional Status * AUDIT-C ScoreAnswerDate of EwvqjjkxuxFdgyck555/20/2025 4:37 PM ESTMychart, Generic * Q1: How often do you have a drink containing alcohol?AnswerDate of Assessment HldiokLjhca30/20/2025 4:37 PM Lucita Generic * Q2: How many drinks containing alcohol do you have on a typical day when you are drinking?AnswerDate of AssessmentAuthorPatient does not drink11/25/2024 4:37 PM Lucita Generic * Q3: How often do you have six or more drinks on one occasion?AnswerDate of DuzivdmaneGbbjliBbugi06/20/2025 4:37 PM Lucita Generic * Over the past 2 weeks, how often have you been bothered by any of the following problems?QuestionAnswerDate of AssessmentAuthorLittle interest or pleasure in doing thingsNot at all07/11/2024 8:26 AM Tony Camarillo MA Feeling down, depressed, or hopelessNot at all07/11/2024 8:26 AM Tony Camarillo MAPatient Health Questionnaire-2 Wddmf554 8:26 AM Tony Camarillo MA documented as of this encounter Plan of Treatment DateTypeDepartmentCare Team (Latest Contact Info)Mluwwwdhzyb00/10/2026 8:45 AM EDTOffice Visit [facility] [address] [place] [address] Denise Lazo MD [address] [facility] [address] [place] [address] 12/15/2026 9:00 AM ESTOffice Visit [facility] [address] [place] [address] Yuri Bowers PA [address] [place] [address] documented as of this encounter Procedures Procedure NamePriorityDate/TimeAssociated DiagnosisCommentsXR CHEST 1 V 02/03/2024 9:41 AM EDT documented in this encounter Results * XR CHEST 1 V (02/03/2024 9:41 AM EDT)Anatomical RegionLateralityModalityOther Specimen (Source)Anatomical Location / LateralityCollection Method / Volume Collection TimeReceived Time02/03/2024 9:41 AM EDT Narrative 02/03/2024 9:43 AM EDT [facility] ?[address] ? [place] [address] ?XRay Report ? Signed ? Patient: DIANA CHAMPION ?MR#: [id number] ?? : 1955 ?Acct:[id number] ?? Age/Sex: 68 / F ?ADM Date: ?? Loc: ER ? Attending Dr: ? Ordering Physician: Tere Rodriguez ?? Date of Service: 02/03/24 ?? Procedure(s): XR chest 1V ?? Accession Number(s): [id number] ? cc: Shaikh Eva Ohara; Tere Rodriguez ? [facility] ? [address] ? [place] [address] ? Patient Name: ?? DIANA CHAMPION ? MRN: [facility]:[id number] ? date: 1955 ?Sex: F ?? Assigned Patient Location: ED.MAIN ?? Current Patient Location: ER ?? Accession/Order Number: [id number] ?? Exam Date: 02/03/2024 ??09:15 ?Report Date: 02/03/2024 ??09:41 ? At the request of: ?? TERE ??MICHAEL ? Procedure: ??XR chest 1V ? EXAM: XR chest 1V ? HISTORY: sob ? COMPARISON: Chest x-ray 11/28/[address] 11/25/2023. ? TECHNIQUE: Portable AP upright chest x-ray. ? FINDINGS: Right lung is well visualized clear. Left upper and mid lung clear. ?? Poor visualization of left lung base retrocardiac area due to overlying soft ?? tissues and patient size/body habitus. ?? Cardiomediastinal contours prominent but unchanged. No pleural effusion. No ?? pneumothorax. ? XR/XR chest 1V ?? IMPRESSION: ? No definite acute findings seen although there is poor visualization of the ?? left lung base retrocardiac area. ?? The abnormal lung density seen on earlier chest x-ray and CT appear to have ?? cleared elsewhere. ? Electronically authenticated by: BARBAAR ??PRIMO ?? Date: 02/03/2024 ??09:41 ? Dictated By: ?Barbara Boudreaux M.D. ? Signed By: ?02/03/24 09 ? DD/ 0 ? TD/TT: ? Manager Deli: Procedure Note Radiology, Radiologist, MD - 02/07/[address] [address] XRay Report Signed Patient: DIANA CHAMPION AMR#: [id number] : 1955cct:[id number] Age/Sex: 68 / FADM Date: Loc: ER Attending Dr: Ordering Physician: Tere Rodriguez Date of Service: 02/03/24 Procedure(s): XR chest 1V Accession Number(s): [id number] cc: Shaikh Eva Ohara; Tere Rodriguez The [address] [address] Patient Name: DIANA CHAMPION MRN: [facility]:[id number] date: 1955 Sex: F Assigned Patient Location: ED.MAIN Current Patient Location: ER Accession/Order Number: [id number] Exam Date: 02/03/2024 09:15 Report Date: 02/03/2024 [...] Boudreaux M.D. Signed By:02/03/2443 DD/ 0 TD/TT: Manager Deli: Authorizing ProviderResult TypeResult StatusGeneric External Data Provider CLINISYNC IMAGINGFinal Result documented in this encounter Visit Diagnoses Not on filedocumented in this encounter Additional Health Concerns AssessmentNoted TimePHQ-9 Depression Total Score: 3:03 PM EST documented as of this encounter Care Teams Team MemberRelationshipSpecialtyStart DateEnd Date Shaikh Ohara MD PCP - GeneralInternal Medicine Tapan Barboza MD [address] [place] [address] PCP - GeneralFamily Medicine06/10/24 Ariella Mathis DO [address] [place] [address] Referring PhysicianNeurolog01/02/24 Mae Reese NP Nurse PractitionerFamily Medicine06/10/24documented as of this encounter
--- OUTSIDE RECORDS SUMMARY | 2025-09-14 11:28 | XMS_ITS | CCD ---
Author Organization [facility] Inform ion [facility] Care Team Providers Care Dress Operator Name Role Phone Steph Collier Attending Provider Unavailable Chantel Rainey Primary Care Provider Unavailabl e JoanaHerberth Attending Provider Unavailable Unavailable Primary Care Provider Unavailabl e UNKNOWN, PHYSICIAN Referring Unavailable JOO LINN Attending Unavailable JOO LINN Admitting Unavailable UNKNOWN, PHYSICIAN Primary Care Unavailable Rena Hurd Unavailable Joana, Herberth Unavailable Gato Domingo Unavailable Steph Collier Attending Provider [phone] MD Gato Domingo Attending Provider [phone] MD Nicky Ohara Primary Care Provider Gilma [...] KARBLANCA ., DR SANTIAGO Consulting Unavailabl e FAWMICK, MESSER H Primary Care Unavailable ZEELAND, DR BRITTANY Elizondo Consulting Unavailable DARWIN, DR [...] Unavailable FAWWAD, MESSER H Admitting Unavailable FAWWAD, MSESER H Attending Unavailable FAWWAD, MESSER H Consulting Unavailable Steph Collier Attending Provider [phone] Ariella Mathis DO Unavailable Tapan Zazueta MD Primary Care Provider Aida Reese NP Unavailable [phone] MD Allan Lacey Attending Provider KELI Reese Primary Care [facility] [place]AN ZAZUETA Primary Care Physician Allan Lacey MD Attending Provider Mary Ann BRANDT-Aida Pastrana Primary Care [facility] Allan Lacey Attending Unavailable Aida Reese Primary Care Unavaila Allan Fregoso Admitting Unavailable Allan Lacey Attending Unavailable Aida Reese Primary Care Unavaila Allan Fregoso Admitting Unavailable Mary Ann NURSE CHARGE RN, Aida Unavailable [phone] OMBALLI, MOHAMED Referring Unavailable RADHA, GHULAM Referring Unavailable OMBALLI, MOHAMED Admitting Unavailable OMBALLI, MOHAMED Attending Unavailable OMBALLI, MOHAMED Referring Unavailable ELTAHAWY, EHAB Attending Unavailable ELTAHAWY, EHAB Attending Unavailable OMBALLI, MOHAMED Attending Unavailable SAMSA BO Referring Unavailable OMBALLI, GUSTAVOAMED Attending Unavailable OMBALLI, GUSTAVOAMED Attending Unavailable MAG BLOUNT Attending Unavailable AIDA REESE Referring Unavailtori e MAG BLOUNT Attending Unavailable MAG BLOUNT Attending Unavailable MAG BLOUNT Admitting Unavailable Alicia DRAPER, Jayshree Johnson Attending Unavailable Alicia DRAPER, Andrius Alex Attending Unavailable Alicia DRAPER, Vandanarius Johnson Attending Unavailable Tapan Zazueta MD Primary Care Provider Mary Ann NURSE CHARGE RN, Aida Unavailable [phone] Mary Ann NURSE CHARGE RN-C, Aida Tenorio Primary Care [facility] Nicolas Dickinson DO Attending Provider Rene NURSE CHARGE RN-CKaylene Primary Care Provider Rene NURSE CHARGE RN-CKaylene Attending Provider AIDA REESE Attending UnavailJESSICA Thorpe Attending Unavailable RAMIN MAIER Attending Unavailable RAMIN MAIER Referring Unavailable RAMIN MAIER Referring Unavailable JESSICA LAZO Attending Unavailable AIDA REESE Attending Unavailtori e AIDA REESE Attending Unavailabl e AICHHOLZ, KAYLENE Attending Unavailable AICHHOLZ, KAYLENE Attending Unavailable AICHHOLZ, KAYLENE Attending Unavailable AICHHOLZ, KAYLENE Attending Unavailable AICHHOLZ, KAYLENE Attending Unavailable JESSICA LAZO Attending Unavailable JAYNA GOODE Attending Unavailable REESEAIDA AREVALO Referring Unavailtori e MARY ANN, AIDA Attending Unavailabl e Kat, Amalia Attending Unavailable Kat, Amalia Attending Unavailable Kat, Amalia Attending Unavailable Kat, Amalia Attending Unavailable Lev DRAPER, Primary Care Provider Ariella Mathis DO Unavailable Tapan Zazueta MD Primary Care Provider Mary Ann BRANDT, Aida Unavailable Lev DRAPER, Primary Care Provider Unavailable Unavailable Unavailable Allergies Allergy ClassificationReported Allergen(s)Allergy TypeDate of OnsetReaction(s) Facility (20 sources)fentaNYL; Translations: [fentanyl]Drug [id number] Hallucinations (finding)[facility] (1 source)linezolid; Translations: [LINEZOLID]Drug Nibdodr42-02-6108[facility] Rep[facility] (20 sources)Vancomycin; Translations: [VANCOMYCIN]Drug Kgkcflp06-12-2314Dlorfpu [facility] Repository (17 sources)DENIES METAL SENSITITIVITYPropensity to adverse ujiptozlc89-26-5507 [address], [address] [facility] [address] [facility] Medications Current Medications MedicationDrug Class(es)DatesSig (Normalized)Sig (Original)30 ACTUAT fluticasone furoate 0.2 MG/ACTUAT / umeclidinium 0.0625 MG/ACTUAT / vilanterol 0.025 MG/AC TUAT Dry Powder Inhaler [Trelegy] (2 sources)take 1 puff(s) by inhalation once dailyTrelegy Ellipta 200-62.5-25 MCG/INH 1 puff Inhalation Once a day Activealbuterol 0.83 mg/ml inhalation solution (20 sources)beta2-Adrenergic AgonistStart: 02-28-6598tnwmqsmog 0.083% Inh Meagan 3 mL 2.5 mg, 3 mL Start Date: 10/15/24 Status: Ordered Repeat number: 1Start: 58-98-3612Iquoupkzt Sulfate 2.5 mg /3 mL (0.083 %) [...] 14, 2024 12:00am Complies with drug therapyStart: 22-12-4178ouaq 1 puff(s) by inhalation every four to six hoursAlbuterol Sulfate Active 1 PUFF Inhalation EVERY 4-6 HOURS July 07, 2017 10:17amStart: 07-07-2017 End: 63-75-2450sswg 1 puff(s) by inhalation every four to six hours as needed for wheezingAlbuterol Sulfate 90 mcg/actuation Hfa Aerosol Inhaler Discontinued 1 PUFF INHALATION EVERY 4-6 HOURS as needed for Shortness Of Breath Or Wheezing July 07, 2017 12:00am March 14, 2024 10:40amStart: 07-07-2017 End: 15-94-0082pzjh 1 puff(s) by inhalation every four to six hoursAlbuterol Sulfate Discontinued 1 PUFF INHALATION EVERY 4-6 HOURS July 07, 2017 12:00am March 14, 2024 10:40amStart: 23-10-5997oesr 1 puff(s) by inhalation every four to [...] tablet (20 sources)gamma-Aminobutyric Acid-ergic AgonistStart: 03-14-2024 End: 68-68-4246xgmr 1 tablet by mouth three times dailyBaclofen 10 mg tablet Active 10 MG PO Three times daily March 14, 2024 12:00am Complies with drug the rapytake 1 tablet by mouth every eight hoursBaclofen 5 MG 1 tablet as needed Orally Three times a day Dvwavk977 actuat budesonide 0.16 mg/actuat / formoterol fumarate 0.0048 mg/actuat / glycopyrrolate 0.009 mg/actuat metered dose inhaler (20 sources)Corticosteroid, beta2-Adrenergic AgonistStart: 07-17-2025 Rkuhrzwtyp-Odxbqytt-Zmryvgekyl (Breztri Aerosphere) 160-9-4.8 mcg/actuation HFA aerosol inhaler Active 2 INH INHALATION Twice daily July 17, 2025 12:00am Complies with drug therapyStart: 85-09-1749Ngjtebg Aerosphere 160-9-4.8 MCG/ACT aerosol every 12 (twelve) hours 02/24/2025 Kjtndw82 hr buPROPion hydrochloride 150 mg extended release oral tablet (17 sources)AminoketoneStart: 10-53-2187kazq 1 tablet by mouth once daily in the morningBupropion Hcl (Wellbutrin Xl) 150 mg tablet extended release 24 hr Active 150 MG PO Every morning July 17, 2025 12:00am Complies with drug therapyStart: 04-23-2025 End: 70-54-6926fmfe 1 tablet by mouth every twenty-four hours in the morning buPROPion XL (Wellbutrin XL) 150 MG 24 hr tablet Indications: Moderate episode of recurrent major depressive disorder (HCC) Take 1 tablet (150 mg) by mouth in the morning. Do not crush, chew, or split. 30 tablet 1 06/18/2025 07/18/2025 Activecholecalciferol 0.025 mg oral capsule (13 sources)Vitamin DStart: 01-25-2024 End: 23-24-5815yuyt 1 capsule by mouth once dailydoxycycline hyclate 100 mg oral capsule (7 sources)Tetracycline-class DrugStart: 01-14-2025 End: 70-31-7819aiap 1 capsule by mouth in the morningdoxycycline (Vibramycin) 100 MG capsule Take 100 mg by mouth in the morning and 100 mg before bedtime. 01/14/2025 01/16/2025 Discontinued (Therapy completed)Start: 11-18-2024 End: 30-27-3083fliq 1 capsule by mouth in the morningdoxycycline (Vibramycin) 100 MG capsule Take 100 mg by mouth in the morning and 100 mg before bedtime. 11/18/2024 11/28/2024 ActiveStart: 99-34-0633jspu 1 tablet by mouth once daily doxycycline (Vibra-Tabs) 100 MG tablet Take 100 mg by mouth Daily 06/10/2024 ActiveEnsifentrine (3 sources)Start: 33-68-6929cveb 3 mg by inhalation twice dailyEnsifentrine (Ohtuvayre) 3 mg/2.5 mL suspension for nebulization Active 3 MG INHALATION Twice dailySept2024 12:00am Complies with drug therapyEnsifentrine (Ohtuvayre) 3 MG/2.5ML suspension (18 sources)Start: 18-81-7486Yigrlktxgogs (Ohtuvayre) 3 MG/2.5ML suspension every 12 (twelve) hours 04/02/2025 Activeferrous sulfate 325 mg oral tablet (20 sources)Start: 54-22-0577tygv 1 tablet by mouth once dailyferrous sulfate 325 mg Tab 325 mg = 1 tab(s), Oral, Daily Start Date: 10/15/24 Status: Ordered Repeat number: 1Start: 66-69-6818Dkkhjns Sulfate 325 mg (65 mg iron) tablet Active 325 MG PO Every 48 hours March 14, 2024 12:00am Complies with drug therapy take 1 tablet by mouth every other dayIron 325 (65 Fe) MG 1 tablet Orally every other day Activefluconazole 150 mg oral tablet (1 source)Azole AntifungalStart: 09-10-2024 End: 08-90-1567dgtk 1 tablet by mouth oncefluconazole (Diflucan) 150 MG tablet Indications: Vaginal guero Take 1 tablet (150 mg) by mouth 1(one) time for 1 dose 1 tablet 09/10/2024 09/10/2024 Activefluticasone propionate 0.05 mg/actuat metered dose nasal spray (13 sources)CorticosteroidStart: 46-58-2493pian 1 spray(s) nasal route once dailyFluticasone Propionate (Flonase Allergy Relief) 50 mcg/actuation spray,suspension Active 2 SPRAY INTRANASAL Daily August 01, 2025 12:00am administer into each nostril Complies with drug therapyStart: 80-05-3736lvnz 2 spray(s) nasal route once dailyfluticasone (Flonase) 50 MCG/ACT nasal spray Administer 2 sprays into each nostril Daily 05/01/2025tivetake 2 spray(s) nasal route once dailyFlonase Allergy Relief 50 MCG/ACT 2 spray in each nostril Nasally Once a day Activefluticasone furoate 0.1 MG/ACTUAT / umeclidinium 0.0625 MG/ACTUAT / vilanterol 0.025 MG/ACTUAT Dry Powder Inhaler (6 sources)Anticholinergic, Corticosteroid, beta2-Adrenergic AgonistStart: 05-63-5383mrmeuzuyaid/umeclidinium/vilanterol 200 mcg-62.5 mcg-25 mcg/inh inhalation powder inh, Inhalation, Daily Start Date: 10/15/24 Status: Ordered Repeat number: 1Start: 85-15-3273aynstudmrkd/umeclidinium/vilanterol 200 mcg- 62.5 mcg-25 mcg/inh inhalation powder inh, Inhalation, Daily Start Date: 10/15/24 Status: FrcgqrdIvhysetjlbm-Iyoiccfdr-Wtgldi (Trelegy Ellipta) 200-62.5-25 MCG/ACT aerosol powder (20 sources) End: 14-63-3995fgis 1 puff(s) by mouth in the morning Itmljgczffm-Cckpciafw-Zwowxv (Trelegy Ellipta) 200-62.5-25 MCG/ACT aerosol powder Take 1 puff by mouth in the morning. 04/09/2025 Discontinued (Ineffective)take 1 puff(s) by mouth in the ebatelzLfhxjufbhwu-Zftyyuyle-Drgcfs (Trelegy Ellipta) 200-62.5-25 MCG/ACT aerosol powder Take 1 puff by mouth in the morning. Activefurosemide 20 mg oral tablet (20 sources)Loop DiureticStart: 04-10-2024 End: 25-28-4720crnl 1 tablet by mouth once dailyFurosemide (Lasix) 20 mg tablet Active 20 MG PO Daily May 29, 2024 7:40am Complies with drug therapytake 1 tablet by mouth every twenty-four hoursFurosemide 20 MG 1 tablet Orally Once a day Activegabapentin 300 mg oral capsule (1 source)Anti-epileptic Agenttake 1 capsule by mouth every twelve hours Gabapentin 300 MG 1 capsule Orally twice a day Jjgdwj07 hr guaiFENesin 600 mg extended release oral tablet (20 sources)Start: 80-62-0221iwir 1 tablet by mouth every twelve hours [...] 0.05 mg/ml ophthalmic solution (20 sources)Prostaglandin AnalogStart: 99-22-9833Yyrfvbg 0.005% Soln-Opth 1 drop(s) Start Date: 10/15/24 Status: Ordered Repeat number: 1Start: 09-05-2024 take 1 drop(s) into the eye(s) once daily at bedtimeLatanoprost 0.005 % drops Active 1 DROPS EYE-BOTH Daily at bedtime September 05, 2024 12:00am Complies with drug therapyStart: 67-42-5741hzlu 1 drop(s) into the eye(s) once daily at bedtimeLatanoprost 0.005 % drops Active 1 DROPS EYE-BOTH Daily at bedtime September 04, 2024 11:00pmStart: 11-01-5922kyfb 1 drop(s) into the eye(s) once daily at bedtimeLatanoprost Active 1 DROPS EYE-BOTH Daily at bedtime September 05, 2024 12:00amStart: 27-02-3868fvilpfozwfc (Xalatan) 0.005 % ophthalmic solution 06/18/2024 ActiveStart: 11-45-8954vedp 1 drop(s) into the eye(s) at bedtimelatanoprost (Xalatan) 0.005 % ophthalmic solution INSTILL 1 DROP INTO EACH EYE AT BEDTIME 06/18/2024 Activelevocetirizine dihydrochloride 5 mg oral tablet (1 source)Histamine-1 Receptor Antagonisttake 1 tablet by mouth every twenty- four hoursLevocetirizine Dihydrochloride 5 MG 1 tablet in the evening Orally Once a day ActivelevoFLOXacin 750 mg oral tablet (4 sources)Quinolone AntimicrobialStart: 01-15-2025 End: 75-30-9470lznt 1 tablet by mouth once dailylevoFLOXacin (Levaquin) 750 MG tablet Indications: Pneumonia due to infectious organism, unspecified laterality, unspecified part of lung Take 1 tablet (750 mg) by mouth Daily for 7 days Discontinue doxycycline script 7 tablet 01/15/2025 01/22/2025 ActiveStart: 54-40-6193ndet 1 tablet by mouth once dailylevoFLOXacin (Levaquin) 750 MG tablet Take 750 mg by mouth Daily 06/10/2024 Activemagnesium oxide 400 mg oral tablet (20 sources)Start: 08-09-2022 End: 22-69-1425qnrx 1 tablet by mouth once dailyMAGnesium-Oxide 400 (240 Mg) MG tablet Take 400 mg by mouth Daily 04/10/2024 Lnnmpz87 hr mirabegron 25 mg extended release oral tablet (1 source)beta3-Adrenergic AgonistStart: 07-22-2025 End: 42-26-3914drsy 1 tablet by mouth once dailyMyrbetriq 25 mg oral tablet, extended release 25 mg = 1 tab(s), Oral, Daily, X 30 day(s), # 30 tab(s), Refills(s) 4, Pharmacy: [id number], 163, cm, 07/22/25 8:42:00 EDT, Height/Length Dosing, 105.1, kg, 07/22/25 8:42:00 EDT, Weight Dosing Start Date: 07/22/25 Stop Date: 12/19/25 Status: Ordered Quantity: 30.0 Unit: tab(s) Repeat number: 5 Indications: Mixed incontinence; Overactive bladder;montelukast 10 mg oral tablet (20 sources)Leukotriene Receptor AntagonistStart: 30-94-2905xelz 1 tablet by mouth once dailyMontelukast (Singulair) 10 mg tablet Active 10 MG PO Daily March 14, 2024 12:00am Complies with drugtherapyMulti For Her 50+ - (11 sources)Multi For Her 50+ - as directed Orally ONCE A DAY ActiveMulti For Her 50+ - as directed Orally ActiveMulti Vitamins oral tablet (6 sources)Start: 54-36-3937ppvs 1 tablet by mouth once dailyMulti Vitamins oral tablet Oral, Daily, Refill(s) 0 Start Date: 10/15/24 Status: Ordered Repeat number: 1Start: 58-60-1894Wrsmu Vitamins oral tablet Oral, Daily, Refill(s) 0 [...] (5 sources)RNA Synthetase Inhibitor AntibacterialStart: 05-19-2025 End: 31-14-4273cfdeymdeq (Bactroban) 2 % ointment Indications: Skin pustule Apply topically 3 (three) times a day as needed (skin pustules) for up to 10 days 22 g 06/05/2025 06/15/2025 Activenystatin 957149 unt/ml topical cream (7 sources)Polyene AntifungalStart: 05-19-2025 End: 95-01-1057ryjrivoy (Mycostatin) cream Indications: Candidiasis of breast Apply topically every 12 (twelve) hours if needed (yeast dermatitis) for up to 14 days 60 g 1 05/19/2025 06/02/2025 ActiveStart: 02-17-2025 End: 15-02-1511tqyxzmmm (Mycostatin) cream Indications: Candidiasis Apply topically in the morning and before bedtime. Do all this for 14 days. Apply to affected area. 60 g 1 02/17/2025 03/03/2025 Activeomeprazole 20 mg delayed release oral capsule (20 sources)Proton Pump InhibitorStart: 02-26-2025 End: 28-11-5629ubms 1 capsule by mouth onceomeprazole (PriLOSEC) [address] capsule Indications: Gastroesophageal reflux disease without esophagitis Take 1 capsule (20 mg) by mouth every 12 (twelve) hours 180 capsule 1 02/26/2025 Active Start: 10-15-2024 End: 49-37-6521fagsqsuwgt 20 mg Cap-DR 20 mg = 1 cap(s) Start Date: 10/15/24 Status: Ordered Repeat number: 1Start: 09-03-2024 End: 85-69-7925oggz 1 capsule by mouth onceomeprazole (PriLOSEC) [address] capsule Indications: Gastroesophageal reflux disease without esophagitis Take 1 capsule (20 mg) by mouth every 12 (twelve) hours 180 capsule 09/03/2024 12/02/2024 DiscontinuedStart: 06-03-2024 End: 87-78-4227llch 1 capsule by mouth every twelve hoursomeprazole (PriLOSEC) [address] capsule Indications: Gastroesophageal reflux disease without esophagi tis TAKE 1 CAPSULE BY MOUTH EVERY 12 HOURS 180 capsule 06/03/2024 09/03/2024 Discontinued (Reorder)Start: 15-50-6324zjkq 1 capsule by mouth twice daily Omeprazole 20 mg capsule,delayed release(DR/EC) Active 20 MG PO Twice daily March 14, 2024 12:00am Complies with drug therapyStart: 07-07-2017 End: 21-17-7875taex 1 tablet by mouth once dailyOmeprazole 20 [...] tablet (20 sources)Serotonin Reuptake InhibitorStart: 01-16-2025 End: 55-25-9543hyrg 1 tablet by mouth once dailyParoxetine Hcl (Paxil) 40 mg tablet Active 40 MG PO Daily July 17, 2025 12:00am Complies with drug therapyStart: 03-14-2024 End: 90-84-6717cdpj 1 tablet by mouth once dailyParoxetine Hcl 30 mg tablet Discontinued 30 MG PO Daily March 14, 2024 12:00am July 17, 2025 6:59am Start: 07-07-2017 End: 08-23-1079gemj 1 tablet by mouth once dailyParoxetine Hcl (Paxil) 20 mg Tablet Discontinued 20 MG PO Daily July 07, 2017 12:00am March 14, 2024 10:39amPARoxetine (PAXIL) 40 mg tablet Take 40 mg by mouth. 0 ActiveComment on above:Take 40 mg by mouth.potassium chloride 20 meq extended release oral tablet (15 sources)Start: 07-22-2025 End: 49-08-2664vqyt 1 tablet by mouth once daily at mealtimePotassium Chloride 20 mEq tablet extended release Active 20 MEQ PO Daily August 08, 2025 6:27am take with food Complies with drug therapyStart: 35-46-1316fqfz 1 tablet by mouth every twenty-four hoursPotassium Chloride ER 20 MEQ 1 tablet with food Orally Once a day for 90 day(s) Jul, ActiveStart: 61-55-9339ocul 1 tablet by mouth every twelve hoursPotassium Chloride ER 20 MEQ 1 tablet with food Orally Twice a day for 90 days Jul, Activepramipexole dihydrochloride 0.25 mg oral tablet (20 sources)Nonergot Dopamine AgonistStart: 88-41-7584zvxbuagndkm 0.25 mg Tab mg tab(s), Oral Start Date: 10/15/24 Status: Ordered Repeat number: 1Start: 03-14-2024 End: 55-04-2080vslf 1 tablet by mouth once daily at bedtimePramipexole 0.25 mg tablet Active 0.25 MG PO Daily at bedtime March 14, 2024 12:[address] suad pizanotake 1 tablet by mouth every twenty-four hoursPramipexole Dihydrochloride 0.25 MG 1 tablet Orally Once a day ActivepredniSONE 10 mg oral tablet (20 sources)Start: 01-14-2025 End: 25-72-6517inxq 1 tablet by mouth once dailypredniSONE (Deltasone) 10 MG tablet Take 10 mg by mouth Daily Follow instructions on label 01/14/2025 01/25/2025 ActiveStart: 11-19-2024 End: 54-03-4069hozefqOAIH (Deltasone) 10 MG tablet Take 10 mg by mouth See administration instructions 11/19/2024 12/20/2024 ActiveStart: 11-12-2024 End: 46-95-4758bpqm 3 tablets by mouth once dailypredniSONE (Deltasone) 20 MG tablet Indications: Chronic obstructive pulmonary disease with acute lower respiratory infection (CMS/HCC) Take 3 tablets (60 mg) by mouth Daily for 5 days 15 tablet 11/12/2024 11/17/2024 ActiveStart: 29-04-0523gwju 1 tablet by mouth once dailypredniSONE (Deltasone) 20 MG tablet Take 20 mg by mouth Daily 06/10/2024 Activepregabalin 75 mg oral capsule (20 sources)Start: 03-14-2024 End: 48-10-9431ycis 1 capsule by mouth twice dailyPregabalin 75 mg capsule Active 75 MG PO Twice daily March 14, 2024 12:00am Complies with drug therapy Sodium Chloride (20 sources)Start: 99-45-9406zttdxt chloride Start Date: 10/15/24 Status: Ordered Repeat number: 1Start: 35-81-4390civbuf chloride Start Date: 10/15/24 Status: OrderedStart: 96-17-0163Wyadii Chloride 0.9 % solution for nebulization Active ML INHALATION September 05, 2024 12:00am Complies with drug therapyStart: 54-85-3112Bpofcr Chloride Active ML INHALATION September 05, 2024 12:00amStart: 95-17-3902yammkr chloride 0.9 % nebulizer solution Take 3 mL by nebulization in the morning and 3 mL before bedtime. 04/22/2024 Activesolifenacin succinate 10 mg oral tablet (20 sources)Cholinergic Muscarinic AntagonistStart: 01-13-2025 End: 01-91-0977tdmc 1 tablet by mouth once dailysolifenacin (VESIcare) 10 MG tablet Indications: Urge incontinence Take 1 tablet (10 mg) by mouth Daily 90 tablet 01/13/2025 04/09/2025 Discontinued (Ineffective)Start: 26-88-4992vcwe 1 tablet by mouth once dailysolifenacin (VESIcare) 10 MG tablet Indications: Urge incontinence Take 1 tablet by mouth once daily 90 tablet 10/14/2024 ActiveStart: 70-39-9490tdhp 1 tablet by mouth once dailysolifenacin (VESIcare) 10 MG tablet Indications: Urge incontinence Take 1 tablet (10 mg) by mouth Daily 90 tablet 07/17/2024 ActiveStart: 02-19-2024 End: 89-98-2420nxid 1 tablet by mouth once dailySolifenacin 10 mg tablet Discontinued 10 MG PO Daily March 14, 2024 12:00am July 17, 2025 7:01am take 1 tablet by mouth every twenty-four hoursVESIcare 10 MG 1 tablet Orally Once a day ActivetraMADol hydrochloride 50 mg oral tablet (20 sources)Opioid AgonistStart: 58-45-1580btcHQKYO 50 mg Tab 50 mg = 1 tab(s), Oral Start Date: 10/15/24 Status: Ordered Repeat number: 1Start: 01-23-2024 End: 92-28-7113zxoi 1 tablet by mouth every twelve hourstraMADol (Ultram) 50 MG tablet Take 50 mg by mouth every 12 (twelve) hours 01/23/2024 04/09/2025 Dis continued (Therapy completed)traZODone hydrochloride 100 mg oral tablet (20 sources)Serotonin Reuptake InhibitorStart: 10-15-2024 End: 95-24-8818oevn 1 tablet by mouth once daily at bedtime as neededTrazodone 100 mg tablet Active 100 MG PO Daily at bedtime as needed July 17, 2025 12:00am Complies with drug therapyStart: 76-48-2033hoel 1 tablet by mouth at bedtimetraZODone (Desyrel) 100 MG tablet Indications: Moderate episode of recurrent major depressive disorder (HCC) (CMS/HCC) Take 1 tablet (100 mg) by mouth at bedtime 30 tablet 2 07/17/2024 ActiveStart: 03-14-2024 End: 95-97-9079usbc 1 tablet by mouth once daily at bedtimeTrazodone 100 mg tablet Discontinued 100 MG PO Daily at bedtime March 14, 2024 12:00am July 17, 2025 7:00amStart: 07-07-2017 End: 92-90-9656vhqc 1 tablet by mouth at bedtimeTrazodone 50 mg Tablet Discontinued 50 MG PO Bedtime July 07, 2017 12:00am March 14, 2024 10:38am Comment on above:Take 50 mg by mouth.Trelegy Ellipta 200-62.5-25 MCG/INH (5 sources)take 1 puff(s) by inhalation once dailyTrelegy Ellipta 200-62.5-25 MCG/INH 1 puff Inhalation Once a day Ffkfit74 hr trospium chloride 60 mg extended release oral capsule (20 sources)Cholinergic Muscarinic AntagonistStart: 70-25-7483nknd 1 capsule by mouth once daily 1 hour(s) before mealtimeTrospium 60 mg capsule,extended release 24hr Active 60 MG PO Daily July 17, 2025 12:00am must be taken on empty stomach at least 1 hour before a meal/food with water only Complies with drug therapyStart: 11-06-2024 End: 96-97-7837miaa 1 tablet by mouth twice dailytrospium 20 mg oral tablet 20 mg = 1 tab(s), Oral, BID, # 60 tab(s), Refills(s) 11, Pharmacy: [id number], 163, cm, 10/15/24 14:36:00 EST, Height/Length Dosing, 107, kg, 10/15/24 14:36:00 EST, Weight Dosing Start Date: 11/06/24 Stop Date: 10/21/25 Status: Ordered Quantity: 60.0 Unit: tab(s)Repeat number: 12valACYclovir 1000 mg oral tablet (2 sources)Herpesvirus Nucleoside Analog DNA Polymerase Inhibitor, Herpes Simplex Virus Nucleoside Analog DNA Polymerase Inhibitor, Herpes Zoster Virus Nucleoside Analog DNA Polymerase InhibitorStart: 11-12-2024 End: 05-03-5660vovj 1 tablet by mouth in the morningvalACYclovir [...] Hfa Aerosol Inhaler (1 source)Start: 07-07-2017 End: 93-58-4489tigr 1 puff(s) by inhalation every four to six hours as needed for wheezingAlbuterol Sulfate 90 mcg/actuation Hfa Aerosol Inhaler Discontinued 1 PUFF INHALATION EVERY 4-6 HOURS as needed for Shortness Of Breath Or Wheezing July 06, 2017 11:00pm March 14, 2024 9:40amamLODIPine 2.5 mg oral tablet (17 sources)Dihydropyridine Calcium Channel BlockerStart: 07-07-2017 End: 49-07-9558pwrz 1 tablet by mouth twice dailyAmlodipine (Norvasc) [...] mg oral tablet (9 sources)BenzodiazepineStart: 07-07-2017 End: 92-72-8335oaxf 1 tablet by mouth once dailyClonazepam 0.5 mg Tablet Discontinued 0.5 MG PO Daily July 07, 2017 12:00am March 14, 2024 10:40am Comment on above:Take 0.5 mg by mouth.cyclobenzaprine hydrochloride 10 mg oral tablet (9 sources)Muscle RelaxantStart: 07-07-2017 End: 59-42-4448oyaq 1 tablet by mouth once dailyCyclobenzaprine 10 mg Tablet Discontinued 10 MG PO Daily July 07, 2017 12:00am March 14, 2024 10:40am Comment on above:Take 10 mg by mouth.famotidine 40 mg oral tablet (9 sources)Histamine-2 Receptor AntagonistStart: 07-07-2017 End: 21-06-8895sfte 1 tablet by mouth at bedtimeFamotidine (Pepcid) 40 mg Tablet Discontinued 40 MG PO Bedtime July 07, 2017 12:00am 2022 8:02amfamotidine (PEPCID) 20 mg tablet Take 20 mg by mouth. 0 ActiveComment on above:Take 20 mg by mouth.Sptgnclyyab-Jozdluxds-Mrfvaoaf (13 sources)Start: 03-14-2024 End: 67-45-0599Pwshlmeiukf-Umeclidin-Vilanter (Trelegy Ellipta) 200-62.5-25 mcg blister with device Discontinued 1INH INHALATION Daily March 14, 2024 12:00am July 17, 2025 6:56amStart: 04-34-9166Hpgyywhmjea-Umeclidin-Vilanter (Trelegy Ellipta) 200-62.5-25 mcg blister with device Active 1 INH INHALATION Daily March 13, 2024 11:00pmStart: 64-73-5263Orcffzntnfq-Umeclidin-Vilanter (Trelegy Ellipta) 200-62.5-25 mcg blister with device Active 1 INH INHALATION Daily March 14, 2024 12:00amStart: 12-08-2022 End: 82-90-8141Twiwfhpkmxn-Umeclidin-Vilanter (Trelegy Ellipta) 200-62.5-25 mcg blister with device Discontinued 1INH INHALATION As Directed December 08, 2022 12:00am March 14, 2024 9:40amStart: 12-08-2022 End: 14-78-5790Seyjikxitwp-Umeclidin-Vilanter (Trelegy Ellipta) 200-62.5-25 mcg blister with device Discontinued 1INH INHALATION As Directed December 08, 2022 1:00am March 14, 2024 10:40amStart: 20-76-1042Atugfzzntoo-Umeclidin-Vilanter (Trelegy Ellipta) 200-62.5-25 mcg blister with device Active 1 INH INHALATION As Directed December 08, 2022 12:00amhydroCHLOROthiazide 25 mg oral tablet (15 sources)Thiazide DiureticStart: 12-08-2022 End: 98-55-0799rbcm 1 tablet by mouth once dailyHydrochlorothiazide 25 mg tablet Discontinued 25 MG PO Daily December 08, 2022 1:00am March 14, 2024 10:40am hydroCHLOROthiazide 25 mg / spironolactone 25 mg oral tablet (9 sources)Thiazide Diuretic, Aldosterone AntagonistStart: 64-41-7254bswc 1 tablet by mouth oncespironolactone-hctz 25/25 (ALDACTAZIDE) 25-25 mg per tablet Take 25 mg by mouth. 0 01/03/2019 ActiveStart: 09-15-2017 End: 68-37-3246Ajqywksrkiqwa-Hydrochlorothiaz 0 tablet Discontinued 1 TAB PO Daily September 15, 2017 1:00am December 08, 2022 8:04amComment on above:Take 25 mg by mouth.200 actuat ipratropium bromide 0.017 mg/actuat metered dose inhaler (12 sources)AnticholinergicStart: 07-07-2017 End: 23-92-8549cfth 1 puff(s) by inhalation twice dailyIpratropium [place] (Atrovent Hfa) 17 mcg/actuation Hfa Aerosol Inhaler Discontinued 2 PUFF INHALATI ON Twice daily July 07, 2017 12:00am March 14, 2024 10:40amtake 2 puff(s) by inhalation four times dailyAtrovent HFA 17 MCG/ACT 2 puffs Inhalation Four times a day Activelisinopril 40 mg oral tablet (8 sources)Angiotensin Converting Enzyme InhibitorStart: 07-07-2017 End: 10-44-0927vxxk 0.5 tablet by mouth twice dailyLisinopril 40 mg Tablet Discontinued 0.5 TAB PO Twice daily July 07, 2017 12:00am December 08, 2022 8:04amloratadine 10 mg oral tablet (8 sources)Start: 07-07-2017 End: 42-24-8586cexu 1 tablet by mouth once dailyLoratadine 10 mg Tablet Discontinued 10 MG PO Daily July 07, 2017 12:00am March 14, 2024 10:41am losartan potassium 50 mg oral tablet (18 sources)Angiotensin 2 Receptor BlockerStart: 04-10-2024 End: 12-30-5441azgu 1 tablet by mouth twice dailyLosartan 50 mg tablet Discontinued 50 MG PO Twice daily 180 April 10, 2024 4:50pm September 05, 2024 1:09pmStart: 04-10-2024 End: 79-29-1683yyqk 1 tablet by mouth once dailyLosartan 50 mg tablet Discontinued 50 MG PO Daily 90 April 10, 2024 12:00am April 10, 2024 4:49pmtake 1 tablet by mouth in the morning, then take 1 tablet by mouth twice daily in the eveningLosartan Potassium 50 MG 1 tablet AM / 1 tablet PM Orally bid for 90 days ActiveMagnesium (7 sources)Start: 12-08-2022 End: 72-81-4761zvys 1 tablet by mouth once dailyMagnesium 200 mg Tablet Discontinued 200 MG PO Daily December 08, 2022 1:00am March 14, 2024 10:34am Start: 12-08-2022 End: 23-85-4118hhlt 1 tablet by mouth once dailyMagnesium 200 mg Tablet Discontinued 200 MG PO Daily December 08, 2022 12:00am March 14, 2024 9:34am Start: 12-08-2022 End: 82-29-0068ltfq 200 mg by mouth once dailyMagnesium Discontinued 200 MG PO Daily December 08, 2022 1:00am March 14, 2024 10:34amStart: 98-05-4060bjsc 200 mg by mouth once dailyMagnesium Active 200 MG PO Daily December 08, 2022 12:00ammethylPREDNISolone (18 sources)CorticosteroidStart: 90-35-0745Jgpj-Medrol 40 mg Jul, 1 mL Start: 31-13-4399Bkan-Medrol 40 mg Jan, 1 mLpotassium 99 mg extended release oral tablet (7 sources)Start: 12-08-2022 End: 59-91-5406tuek 1 tablet by mouth twice dailyPotassium 99 mg Tablet Discontinued 99 MG PO Twice daily December 08, 2022 1:00am March 14, 2024 10: 41am Problems Active Problems Problem ClassificationProblemDateDocumented DateEpisodic/ChronicAsthma (20 sources)Asthma; Translations: [Unspecified asthma, uncomplicated]Onset: 10-04-2023 Resolved: 288129-86-0390XkrddlkXzamfi of colon (20 sources)History of malignant neoplasm of colon; Translations: [History of large intestine malignacy]Onset: 07-08-2022 Resolved: 04-85-8580McdcsznuYrirqk of rectum and anus (20 sources)Malignant neoplasm of rectosigmoid junction; Translations: [Malignant neoplasm of rectosigmoid junction]Onset: hronic Cancer of rectum and anus (4 sources)History of malignant neoplasm of anus; Translations: [Personal history of other malignant neoplasm of rectum, rectosigmoid junction, and anus] EpisodicChronic kidney disease (20 sources)Chronic kidney disease stage 3; Translations: [Chronic kidney disease, stage 3 (moderate)]Onset: 432071-31-1388ObysgreGnxpnfo obstructive pulmonary disease and bronchiectasis (20 sources)Chronic obstructive lung disease; Translations: [Chronic obstructive pulmonary disease, unspecified]Onset: 662128-39-0210ZzfjvrjJgnkawh on above:O2@3L continuousChronic obstructive pulmonary disease and bronchiectasis (1 source)Chronic obstructive pulmonary disease and bronchiectasisComplication of device; implant or graft (11 sources)Prosthetic joint loosening; Translations: [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, initial encounter]EpisodicCongestive heart failure; nonhypertensive (20 sources)Chronic heart failure co-occurrent with normal ejection fraction; Translations: [Chronic diastolic (congestive) heart failure]Onset: 10-04-2023 93-78-3475TpkxeqoEnpbieubrl and other anemia (11 sources)Anemia of renal disease; Translations: [Anemia in chronic kidney disease]ChronicDiseases of white blood cells (20 sources)Leukocytosis; Translations: [Elevated white blood cell count, unspecified]Onset: 762656-47-6248XsbnghzLilzehcxg of lipid metabolism (20 sources)Hyperlipidemia; Translations: [Hyperlipidemia, unspecified]Onset: 296625-04-4937PhimnjlHaftoboaiu disorders (20 sources)Gastroesophageal reflux disease; Translations: [Gastro-esophageal reflux disease without esophagitis]Onset: 234721-62-6455CpbovgrZmxypsmkx hypertension (20 sources)Hypertensive disorder; Translations: [Essential (primary) hypertension]Onset: 04-01-2014 Resolved: 439205-69-3722UtfllhaTkmrt and electrolyte disorders (16 sources)Hypokalemia; Translations: [Hypokalemia]Onset: 11-17-2021 Resolved: 69-75-4607PeonijpoRwctsqnexriyfhbb hemorrhage (11 sources)Hemorrhage of rectum and anus; Translations: [Hemorrhage of rectum and anus]EpisodicGenitourinary symptoms and ill-defined conditions (20 sources)Urge incontinence of urine; Translations: [Urge incontinence]Onset: 479742-42-3388IujyitiGqgxnoilnpdg with complications and secondary hypertension (20 sources)Chronic kidney disease due to hypertension; Translations: [Hypertensive chronic kidney disease withstage 1 through stage 4 chronic kidney disease, or unspecified chronic kidney disease]Onset: 11-17-2021 Resolved: 36-08-6793AiicjcqXata disorders (20 sources)Depressive disorder; Translations: [Depression]Onset: 10-04-2023 41-36-8840NmsxpinCintin and vomiting (4 sources)Nausea; Translations: [Nausea]00-39-6589SrtbrdxdCckeizcmiaz deficiencies (20 sources)Vitamin D deficiency; Translations: [Vitamin D deficiency, unspecified]Onset: 937795-98-5932IlshiypQhchvpdpxquvmh (20 sources)Arthritis of left hip; Translations: [Unilateral primary osteoarthritis, left hip]Onset: 10-17-2018 Resolved: 962812-70-0682EwhfyfhZfgfg aftercare (11 sources)Patient encounter status; Translations: [Aftercare following joint replacement surgery]ChronicOther and unspecified benign neoplasm (2 sources)Nevus lipomatosus cutaneous superficialis; Translations: [Benign lipomatous neoplasm of skin and subcutaneous tissue of unspecified sites] 40-70-9111RdpjztjdBkroi connective tissue disease (11 sources)History of repair of hip joint; Translations: [Presence of left artificial hip joint]ChronicOther connective tissue disease (2 sources)History of right total knee replacement; Translations: [Presence of right artificial knee joint]77-89-5299OlxtgegVnlus diseases of bladder and urethra (1 source)Detrusor overactivity; Translations: [Overactive bladder]Onset: 80-04-1103TgiotbrXtjjv diseases of bladder and urethra (1 source)Overactive zdwpela27-18-9534EsljmztSdsdw diseases of kidney and ureters (11 sources)Secondary hyperparathyroidism; Translations: [Secondary hyperparathyroidism of renal origin]ChronicOther diseases of kidney and ureters (5 sources)Secondary hyperparathyroidism of renal origin; Translations: [SEC HYPERPARATHYROIDISM RENAL ORIGN]Onset: 11-17-2021 Resolved: 87-54-2719CiqltlpApwba gastrointestinal disorders (5 sources)Diarrhea; Translations: [Diarrhea, unspecified]94-16-1726Pcyvsnoc Other hereditary and degenerative nervous system conditions (20 sources)Restless legs; Translations: [Restless legs syndrome]Onset: 482158-74-8578BktutddYacpk lower respiratory disease (2 sources)Other forms of dyspnea; Translations: [Other forms of dyspnea]Onset: 60-43-7248JlcbwftzMppth nervous system disorders (20 sources)Chronic pain; Translations: [Other chronic pain]Onset: 12-05-2023 22-93-9358KgaemlzLeagw nervous system disorders (20 sources)Critical illness myopathy; 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] Onset: 479320-60-1230BbddkbbWtufz non-epithelial cancer of skin (6 sources)Squamous cell carcinoma of skin of trunk; Translations: [Squamous cell carcinoma of skin of other part of trunk]62-81-1116TiinyknrOwpfg non- traumatic joint disorders (20 sources)Knee pain; Translations: [Pain in right knee]EpisodicOther non- traumatic joint disorders (1 source)Pain in right hip; Translations: [PAIN IN RIGHT HIP]Onset: 03-27-2023 EpisodicOther non-traumatic joint disorders (2 sources)Pain in right knee; Translations: [Pain in joint, lower leg] 35-73-2410FevzprsoEnhql nutritional; endocrine; and metabolic disorders (11 sources)Body mass index 30+ - obesity; Translations: [Body mass index (BMI) 36.0-36.9, adult]ChronicOther nutritional; endocrine; and metabolic disorders (16 sources)Hypomagnesemia; Translations: [Hypomagnesemia]59-11-2804YifpcqlTqgwm nutritional; endocrine; and metabolic disorders (7 sources)Hypomagnesemia; Translations: [Disorders of magnesium metabolism] Onset: 87-57-3088ApfiubaWvfpi nutritional; endocrine; and metabolic disorders (20 sources)Body mass index 40+ - severely obese; Translations: [Morbid (severe) obesity due to excess calories]Onset: 856504-51-1840PbbwpxuChsdx nutritional; endocrine; and metabolic disorders (20 sources)Obesity caused by energy imbalance; Translations: [Morbid (severe) obesity due to excess calories]Onset: 560972-43-8770EfzytohKiwkm nutritional; endocrine; and metabolic disorders (9 sources)Morbid obesity; Translations: [Morbid (severe) obesity due to excess calories]81-07-2928VusytrbKanzu nutritional; endocrine; and metabolic disorders (5 sources)Hyperuricemia without signs of inflammatory arthritis and tophaceous disease; Translations: [HU W/OSIGNS IA AND TOPHACEOUS DZ]Onset: 11-17-2021 Resolved: 79-30-9731YxgivnwgCyhjo skin disorders (4 sources)Seborrheic keratosis; Translations: [Other seborrheic keratosis] 32-82-1782UrvwyrslOgbif skin disorders (4 sources)Lentiginosis; Translations: [Other melanin hyperpigmentation] 04-90-2784PevqsrlmWpjxa upper respiratory infections (20 sources)Chronic sinusitis; Translations: [Chronic sinusitis, unspecified] Onset: 466776-90-0063VcqtzozVzabcswon heart disease (20 sources)Secondary pulmonary hypertension; Translations: [Other secondary pulmonary hypertension]Onset: 512484-13-8189ApfvcixZqdhcamvlod failure; insufficiency; arrest (adult) (20 sources)Chronic hypoxemic respiratory failure; Translations: [Chronic respiratory failure with hypoxia]Onset: 773227-33-0121ZaugexcLkhoqiqkhe arthritis and related disease (20 sources)Rheumatoid arthritis; Translations: [Rheumatoid arthritis, unspecified]Onset: 720691-93-7567MdclmzbUmpwjqetrjc; intervertebral disc disorders; other back problems (20 sources)Sacroiliitis, not elsewhere classified; Translations: [Herniation of nucleus pulposus of lumbar intervertebral disc]Onset: 05-22-2018 Resolved: 924419-62-8794FgvqpqfZlsnrkaqtpfo (4 sources)CONTACT W/AND (SUSP) EXPOS COVID-19; Translations: [CONTACT W/AND (SUSP) EXPOS COVID-19]Onset: 88-75-2049Eojxbntsvkew (4 sources)CHRN KIDNEY DISEASE STG 3 UNSP; Translations: [CHRN KIDNEY DISEASE STG 3 UNSP]Onset: 99-95-0521Lncsqakndeva (3 sources)ACUTE COUGH; Translations: [ACUTE COUGH]Onset: 34-58-2913Ethpmiihumwe (20 sources)Patient on antidepressant monitoring planOnset: Unclassified (6 sources)Arthropathy of right knee ehxrf82-86-1632Ovnxbcabtqad (6 sources)Displacement of lumbar intervertebral blgz79-10-1290Buqrxgkzitge (6 sources)Malignant colorectal dhtpeecl82-43-8304Xrmpc infection (1 source)COVID-19; Translations: [COVID-19]Onset: 04-05-2023 Past or Other Problems Problem ClassificationProblemDateDocumented DateEpisodic/ChronicAcute and unspecified renal failure (20 sources)Acute renal failure syndrome; Translations: [Acute kidney failure, unspecified]Onset: 12-28-2023 Resolved: 920156-32-3219IbkkidqcAdfypdb dysrhythmias (20 sources)Atrial fibrillation; Translations: [Unspecified atrial fibrillation] Onset: 12-05-2023 Resolved: 155330-45-3462VaeyblgOhhdhwc kidney disease (11 sources)Chronic kidney disease; Translations: [Chronic kidney disease, stage III (moderate)]Onset: 11-17-2021 Resolved: 78-36-0634Soiioscfab and other anemia (20 sources)Iron deficiency anemia; Translations: [Iron deficiency anemia, unspecified]Onset: 086623-50-9925ZmsjwweaVxnccehkinwiz and screening for infectious disease (2 sources)Contact with and (suspected) exposure to other viral communicable diseases; Translations: [Encounter for screening for human papillomavirus (HPV)] Onset: 08-30-2021 Resolved: 87-19-0250LxuiafuaKbuoayc and fatigue (20 sources)Malaise; Translations: [Other malaise]Onset: 12-05-2023 Resolved: 959578-01-1385NfriyittFpkj disorders (20 sources)Mood disordersOnset: 844001-99-9260Fuhfaao (20 sources)Candidiasis of vagina; Translations: [Vaginal guero]Onset: 396439-84-0567InuqtbxbIcuouebrh of unspecified nature or uncertain behavior (20 sources)Neoplasm of uncertain behavior of chest wall; Translations: [Neoplasm of uncertain behavior of other specified sites]Onset: 10-07-2024 29-94-8316DeumcidiFlmrl aftercare (20 sources)Post-discharge follow-up; Translations: [Encounter for follow-up examination after completed treatment for conditions other than malignant neoplasm]Onset: 12-05-2023 Resolved: 852865-33-4320DtuwkwrnNembt bone disease and musculoskeletal deformities (1 source)Other specified disorders of bone density and structure, right thigh; Translations: [OTH D/O BONE DEN STRUCT RT THIGH]Onset: 80-47-7206NveitsomWrfaa connective tissue disease (20 sources)History of total knee arthroplasty; Translations: [Presence of right artificial knee joint]Onset: 12-05-2023 Resolved: 384242-06-9819QgqtfwdDbhtm infections; including parasitic (20 sources)Personal history of other infectious and parasitic diseases; Translations: [History of COVID-19]Onset: 010947-47-4906VjysyrmeJgogf injuries and conditions due to external causes (20 sources)At moderate risk for fall; Translations: [History of falling]Onset: 10-04-2023 Resolved: 061497-40-8204KvcsbtghJykhr lower respiratory disease (4 sources)Respiratory disorder, unspecified; Translations: [RESPIRATORY DISORDER UNSPECIFIED]Onset: 24-49-4462LgbjsrsaDnjct lower respiratory disease (20 sources)Pneumonitis; Translations: [Other disorders of lung]Onset: 488836-61-0593CobfubasNoamk lower respiratory disease (2 sources)Solitary pulmonary nodule; Translations: [Solitary pulmonary nodule] Onset: 29-65-3118AvvhrtvdQquhr non-traumatic joint disorders (18 sources)Pain in right hip joint; Translations: [Pain in right hip]Onset: 212895-17-1078HnbcmfinPbcdh non-traumatic joint disorders (20 sources)Hip pain; Translations: [Pain in left hip]Onset: 10-04-2023 Resolved: 890798-64-6891YtzulecpYimiz nutritional; endocrine; and metabolic disorders (20 sources)Hyperuricemia; Translations: [Hyperuricemia without signs of inflammatory arthritis and tophaceous disease]Onset: EpisodicOther screening for suspected conditions (not mental disorders or infectious disease) (20 sources)Encounter for screening mammogram for malignant neoplasm of breast; Translations: [Encounter for screening for malignant neoplasm of cervix]Onset: 27-29-7273XmdpuynmWrmyj upper respiratory disease (2 sources)Other specified diseases of upper respiratory tract; Translations: [Other specified diseases of upper respiratory tract]Onset: 44-00-9018Qpfkpsha Other upper respiratory infections (5 sources)Acute upper respiratory infection, unspecified; Translations: [Viral URI J06.9]Onset: 08-30-2021 Resolved: 35-74-5584JuvodhdyHbjtnl media and related conditions (20 sources)Acute suppurative otitis media without spontaneous rupture of ear drum; Translations: [Acute suppurative otitis media without spontaneous rupture of ear drum, bilateral]Onset: 10-04-2023 Resolved: 691684-63-9606CswmvnkbWcmizqhrc (except that caused by tuberculosis or sexually transmitted disease) (20 sources)Pneumonia, unspecified organism; Translations: [Pneumonia, organism unspecified]Onset: 340220-34-8779EeellofcNtemfigl codes; unclassified (1 source)Asymptomatic menopausal state; Translations: [ASYMPTOMATIC MENOPAUSAL STATE]Onset: 47-91-5580ZgjroebgUbgtkrcu codes; unclassified (20 sources)Postmenopausal state; Translations: [Asymptomatic menopausal state] Onset: 186671-07-0613ZfurwkoxAmlmlvpd codes; unclassified (20 sources)Viral syndrome; Translations: [Other general symptoms and signs] Onset: 01-02-2025 Resolved: 809421-38-9454NyanskzxHhrhfink codes; unclassified (20 sources)Bilateral lower limb edema; Translations: [Localized edema]Onset: 836317-79-8548XsrvnqxiYpiexjxji and history of mental health and substance abuse codes (20 sources)Depression screening positive; Translations: [Encounter for screening for depression]Onset: 10-04-2023 Resolved: 767708-19-2729PdeumevzPvfr and subcutaneous tissue infections (20 sources)Pustule ; Translations: [Local infection of the skin and subcutaneous tissue, unspecified]Onset: 472333-48-4893JsdoxignAcvgrfkmexs; intervertebral disc disorders; other back problems (20 sources)Spinal stenosis of lumbar region; Translations: [Spinal stenosis, lumbar region without neurogenic claudication]Onset: 03-24-2023 Resolved: 22-49-8546HczenxypCcojgamfzmsw (1 source)CONTACT W/AND (SUSP) EXPOS COVID-19; Translations: [CONTACT W/AND (SUSP) EXPOS COVID-19]Onset: 61-02-1868Otzxuynazwvl (1 source)ACUTE COUGH; Translations: [ACUTE COUGH]Onset: 78-59-2895Cqhrbreiifcz (1 source)CHRN KIDNEY DISEASE STG 3 UNSP; Translations: [CHRN KIDNEY DISEASE STG 3 UNSP]Onset: 64-14-4205Mqqkd infection (20 sources)COVID-19; Translations: [Other specified viral infection]Onset: 656491-86-7825Ztdvbvfe Results Test NameValueInterpretationReference RangeFacilityGastrointestinal pathogens panel KAYLEE+probe (Stl)on 46-38-9998OHMUPROCZEBBI JEJUNI, COLI (GASTROINTESTINAL)0 NOMS HealthcareCAMPYLOBACTER JEJUNI, COLI (GASTROINTESTINAL)Not detectedNOMS HealthcareCLOSTRIDIUM DIFFICILE (TOXIN A/B) (GASTROINTESTINAL)0[facility] CLOSTRIDIUM DIFFICILE (TOXIN A/B) (GASTROINTESTINAL)Not detectedNOMS Healthcare CLOSTRIDIUM [id number] HealthcareCLOSTRIDIUM PERFRINGENSNot detectedNOMS HealthcareCRYPTOSPORIDIUM SPP (PARVUM, HOMINIS, [...] (GASTROINTESTINAL)Not detectedNOMS HealthcareMICROSPORIDIUM (ENTEROCYTOZOON BIENEUSI, ENCEPHALITOZOON INTESTINALIS) (VN9[facility] Healthcare MICROSPORIDIUM (ENTEROCYTOZOON BIENEUSI, ENCEPHALITOZOON INTESTINALIS) (GANot [...] in non- AmericanOrdered By: Kaylene López on 39-23-3967VJO/1.73 sq M.predicted among non-blacks MDRD (S/P/Bld) [Vol rate/Area]47 mL/min/{1.73_m2}Low>=60 mL/min/1.73m 2FRegency Hospital ToledoLaboratory - Chemistry and Chemistry - challengeOrdered By: Kaylene López on 56-10-7066Qfnzefu [Mass/Vol]8.6 mg/dL8.5-10.1FRegency Hospital ToledoChloride [Moles/Vol]106 mmol/Z16-726PvejdbzjuMercy Health St. Joseph Warren HospitalCO2 [Moles/Vol]25.4 mmol/L21.0-32.0[facility] HospitalCreatinine [Mass/Vol]1.15 mg/dLHigh0.55-1.02[facility] Warren HospitalGFR/1.73 sq M.predicted MDRD (S/P/Bld) [Vol rate/Area]57 mL/min/{1.73_m2} Low>=60 mL/min/1.73m 2FRegency Hospital ToledoGlucose [Mass/Vol]137 mg/nHWdnb80-153UirclqxkiMercy Health St. Joseph Warren HospitalPotassium [Moles/Vol]3.3 mmol/L Low3.5-5.1FMorrow County Hospitalodium [Moles/Vol]144 mmol/Z460-[address] [facility] Warren HospitalUrea nitrogen [Mass/Vol]6.0 mg/dLLow7.0-18.[address] [facility] Warren HospitalUrea nitrogen/Creatinine [Mass ratio]5.2 mg/mg [facility] Hospitalerum or plasma anion gap determinationOrdered By: Kaylene López on 99-58-1880Qgpwj gap [Moles/Vol]15.9 mmol/LFRegency Hospital ToledoAmbulatory Visit Summaryon 45-95-8065Uxidlurmtz Visit SummaryAmbulatory Visit Summary DIANA CHAMPION :1955 [...] Amalia Stephens PA-C Where: [facility] [address] [address]- Medications What How Much When Instructions Unchanged [...] signed up for this yet, please contact [employer] at [phone] to get signed up today. Language Information Language assistance services are available as needed. [facility] HospitalUrology Office/Clinic Noteon 37-80-4946Ozzsrhl Office/Clinic NoteUrology Office/Clinic Note Chief Complaint 3 [...] in no acute distress. Assessment/Plan CHF - [facility] Blair CKD - Joana COPD/Pulm - Samsa/Omballi. [...] urgency and UUI. VESIcare was stopped and Meipgeaq81 mg ER qd. BBSQ 27 UA today [...] w/ PVR, or sooner if needed Ordered: bryceabegron 25 mg = 1 tab(s), Oral, Daily, X 30 day(s), # 30 tab(s), Refills(s) 4, Pharmacy: [id number], 163, cm, 07/22/25 8:42:00 EDT, Height/Length Dosing, 105.1, kg, 07/22/25 8:42:00 EDT, Weight Dosing 2. Mixed incontinence (N39.46: Mixed incontinence) UUI>DONNA -See #1 Ordered: mirabegron, 25 mg = 1 tab(s), Oral, Daily, X 30 day(s), # 30 tab(s), Refills(s) 4, Pharmacy: [id number], 163, cm, 07/22/25 8:42:00 EDT, [...] Urnls Dip Stick Auto w/o Microscopy POC 95289 Follow-up No qualifying data available Patient Education [...] CE - Cataract extrac (more content not included)...[facility] HospitalComment on above:Result Comment: Electronically Signed By: Kat MICHAUD, Amalia\.br\Date and Time Signed: 07/22/25 09:58 EDTGlomerular filtration rate (GFR) estimation in non- AmericanOrdered By: Kaylene López on 07-18-2025 GFR/1.73 sq M.predicted among non-blacks MDRD (S/P/Bld) [Vol rate/Area]40 mL/min/{1.73_m2}Low>=60 mL/min/1.73m 2FRegency Hospital Toledo Laboratory - Chemistry and Chemistry - challengeOrdered By: Kaylene López on 78-31-7391Lgxppoa [Mass/Vol]8.7 mg/dL8.5-10.1FRegency Hospital Toledo Chloride [Moles/Vol]104 mmol/V50-749DhookpfliMercy Health St. Joseph Warren HospitalCO2 [Moles/Vol]26.8 mmol/L21.0-32.0[facility] Warren HospitalCreatinine [Mass/Vol]1.33 mg/dLHigh0.55-1.02[facility] Warren HospitalGFR/1.73 sq M.predicted MDRD (S/P/Bld) [Vol rate/Area]48 mL/min/{1.73_m2}Low>=60 mL/min/1.[address]m [address] [place], [place] [address]Glucose [Mass/Vol]164 mg/dLHigh 74-106[facility] Warren HospitalMagnesium [Mass/Vol]1.8 mg/dL1.8-2.[address] [facility] HospitalPotassium [Moles/Vol]3.3 mmol/LLow3.5-5.1 [facility] Hospitalodium [Moles/Vol]141 mmol/J583-384BybjrgeuwMercy Health St. Joseph Warren HospitalUrea nitrogen [Mass/Vol]15.0 mg/dL7.0-18.0[facility] HospitalUrea nitrogen/Creatinine [Mass ratio]11.3 mg/mgProtestant Deaconess Hospitalerum or plasma anion gap determinationOrdered By: Kaylene López on 65-64-2032Ypkvv gap [Moles/Vol]13.5 mmol/LFRegency Hospital ToledoGlomerular filtration rate (GFR) estimation in non- Ordered By: Nicolas Dickinson on 78-25-1533LKN/1.73 sq M.predicted among non-blacks MDRD (S/P/Bld) [Vol rate/Area]56 mL/min/{1.73_m2}Low>=60 mL/min/1.73m [address] [place], [place] [address]Laboratory - Chemistry and Chemistry - challengeOrdered By: Nicolas Dickinson on 71-94-7648Gaeupqq [Mass/Vol]8.7 mg/dL8.5-10.1FRegency Hospital ToledoChloride [Moles/Vol]106 mmol/J99-203TzxpmyglbMercy Health St. Joseph Warren HospitalCO2 [Moles/Vol]29.3 mmol/L21.0-32.0[facility] HospitalCreatinine [Mass/Vol]0.99 mg/dL0.55-1.02[facility] GFR/1.73 sq M.predicted MDRD (S/P/Bld) [Vol rate/Area]mL/min/{1.73_m2}>=60 mL/min/1.73m 2FRegency Hospital ToledoGlucose [Mass/Vol]206 mg/dLHigh 74-106[facility] HospitalMagnesium [Mass/Vol]2.1 mg/dL1.8-2.[address] [facility] HospitalPotassium [Moles/Vol]4.1 mmol/L3.5-5.1FMorrow County Hospitalodium [Moles/Vol]143 mmol/X463-273PhkytrtasMercy Health St. Joseph Warren HospitalUrea nitrogen [Mass/Vol]19.0 mg/dLHigh7.0-18.0[facility] HospitalUrea nitrogen/Creatinine [Mass ratio]19.2 mg/mgProtestant Deaconess Hospitalerum or plasma anion gap determinationOrdered By: Nicolas Dickinson on 89-70-8215Kezzc gap [Moles/Vol]11.8 mmol/LFRegency Hospital ToledoXR Hip - right 3 Viewson 38-36-4467[address] [address] XRay Report Signed Patient: DIANA CHAMPION MR#: [id number] : 1955 Acct:[id number] Age/Sex: 69 / F ADM Date: 04/30/25 Loc: RAD Attending Dr: Jose Saucedo NURSE CHARGE RN Ordering Physician: Jose Saucedo NP Date of Service: 04/30/25 Procedure(s): XR hip RT min 2V Accession Number(s): [id number] cc: Kaylene López NP; Jose Saucedo NP [place] [id number] Patient Name: DIANA CHAMPION MRN: [id number] date: 1955 Sex: F Assigned Patient Location: [facility] Current Patient Location: RAD Accession/Order Number: [id number] Exam Date: 04/30/2025 13:45 Report Date: 04/30/2025 [...] Jr., D.O. 04/30/2025 1:46 PM Dictation Location: [place] [address] Electronically authenticated by: [id number] Y Date: 04/30/2025 13:46 Dictated By: Marcos Medina M.D. Signed By: 04/30/25 1349 DD/ 1346 TD/TT: Retanner:TBHRadiology, Radiologist, - 04/30/2025 [place] [address] XRay Report Signed Patient: DIANA CHAMPION MR#: [id number] : 1955 Acct:[id number] Age/Sex: 69 / F ADM Date: 04/30/25 Loc: NAKITA Attending Dr: Jose Saucedo NP Ordering Physician: Jose Saucedo NP Date of Service: 04/30/25 Procedure(s): XR hip RT min 2V Accession Number(s): [id number] cc: Kaylene López NP; Jose Saucedo NP [facility] [place] [id number] Patient Name: DIANA CHAMPION MRN: [id number]:[id number] date: 1955 Sex: F Assigned Patient Location: [facility] Current Patient Location: [facility] Accession/Order Number: [id number] Exam Date: 04/30/2025 13:45 Report Date: 04/30/2025 [...] BONY PROCESS.. Impression dictated by: Marcos Medina Jr. DCarl 04/30/2025 1:46 PM Dictation Location: [place] [address] Electronically authenticated by: [id number] Y Date: 04/30/2025 13:46 Dictated By: Marcos Medina M.D. Signed By: 04/30/25 1349 DD/ 1346 TD/TT: Retanner: WILL HealthcareRadiology Study observation (narrative)NOMS HealthcareXR Hip - right 3 ViewsOrdered By: Radiologist Radiology on 49-99-4596FRVJ Healthcare Work Phone: ambulatory Visit Summaryon 44-11-8624Axgvnksvgh Visit SummaryAmbulatory Visit Summary DIANA CHAMPION :1955 Visit Date:03/24/2025 [...] MAG BLOUNT PA-C Where: [facility] [address] [place] [address]- Medications What How Much When Instructions Unchanged [...] you for choosing us for your care. [facility] HospitalUrology Office/Clinic Noteon 25-72-8793Owzgbol Office/Clinic NoteUrology Office/Clinic Note Chief Complaint 5 [...] rashes or suspicious lesions Assessment/Plan CHF - [facility] CKD - Joana COPD/Pulm - Samsa/Omballi. [...] IR BID. Pt currently rehabbing at [facility] d/t double pneumonia. Has been there x1 week, plan is to hopefully return home within the next week or so. F/u 3 mos to assess efficacy. Ordered: Body Mass Index (BMI) documented 3008F Current tobacco non-user 1036F Depression Screening Negative 3352F E&M of Est. Patient Moderate 30-39 Min 39031 Medication list documented in medical record 1159F [...] Never., 10/15/2024 Substance Abuse (more content not included)...[facility] Comment on above:Result Comment: Electronically Signed By: JOSE ALEJANDRO MICHAUD, MAG Hester\.br\Date and Time Signed: 03/24/2510:44 EDTMG Breast - bilateral Screeningon 55-94-9365[place]bh[place], [place] [address] Mammography Report Signed Patient: DIANA CHAMPION MR#: [id number] : 1955 Acct:[id number] Age/Sex: 69 / F ADM Date: 03/03/25 Loc: MAMMO Attending Dr: Kaylene López NP Ordering Physician: Kaylene López NP Results: Date of Service: 03/03/25 Follow Up: Procedure(s): MM screening mammo BI Accession Number(s): [id number] cc: Kaylene López NP Patient Name: DIANA CHAMPION MR#: [id number] : 1955 Exam Date: 03/03/2025 Ordering Doctor: CLEO López NURSING STAFFING COORDINATOR RADIOLOGY REPORT PROCEDURE: MM SCREENING MAMMO BI [...] radiation, chemotherapy Family Cancers None LOCATION: [facility] BREAST COMPOSITION: The breasts are [...] Signed By: 03/03/25 164 DD/ 41 TD/TT: Retanner:TBHRadiology, Radiologist, - 03/03/2025 [place] [address] Mammography Report Signed Patient: DIANA CHAMPION MR#: [id number] : 1955 Acct:[id number] Age/Sex: 69 / F ADM Date: 03/03/25 Loc: MAMMO Attending Dr: Kaylene López NP Ordering Physician: Kaylene López NP Results: Date of Service: 03/03/25 Follow Up: Procedure(s): MM screening mammo BI Accession Number(s): [id number] cc: Kaylene López NP Patient Name: DIANA CHAMPION MR#: [id number] : 1955 Exam Date: 03/03/2025 Ordering Doctor: [...] radiation, chemotherapy Family Cancers None LOCATION: [facility] BREAST COMPOSITION: The breasts are [...] M.D. Signed By: 03/03/251642 DD/ 41 TD/TT: Retanner: NOMS HealthcareRadiology Study observation (narrative)[facility] Breast - bilateral ScreeningOrdered By: Radiologist Radiology on 91-43-0412OZPZWashington University Medical Center Work Phone: Office Visiton 72-58-7515Dxlplq-up [id number] Diana Champion 1955 F Date Provider Department Center 01/23/2025 271-LOYDA, [facility] Family History Problem Relation Age of Onset Heart failure Mother Heart disease Father Family Status - Relation Status Age at Mother Father Level of Service:[address] [place] OFFICE/OUTPATIENT ESTABLISHED LOW MDM 20 [facility] HospitalLaboratory - Microbiology and Antimicrobial susceptibilityon 31-96-5394JNDM-CoV-2 (COVID-19) RNA KAYLEE+probe Ql (Unsp spec) NegativeCox Walnut Lawn Panel Informationon 16-49-1713VLN ANegativeNOMS HealthcareFLU BNegativeNOWA HealthcareInterpretation and review of laboratory resultsNormalECU Health Chowan HospitalXR Hip - right 3 Viewson 12-17-2024 Imaging Result: AP and Lateral right hip No acute fracture Mild SI joint arthritic changes Pt has severe arthritis to right hip joint with subchondral cyst and sclerosis to femoral head and acetabulum. Stable hardware left hip on AP view Impression: Severe right hip arthritis.[facility] Health Chowan HospitalRadiology Study observation (narrative)[facility] Medical CenterXR Knee - right 1 or 2 Viewson 84-35-5549Wwvnyaz Result: AP and Lateral of right knee: Surgical position and alignment of prosthetic components without evidence of loosening or wear to femora, tibial or patellar components, The alignment appears to be anatomic. No evidence of accelerated or asymmetric wear to tibial tray or patella button. No evidence of fracture or dislocation. Impression: Unremarkable right total knee arthroplastyNOSSM Health St. Mary's Hospital JanesvilleRadiology Study observation (narrative)[facility] Panel Informationon 70-89-7342Uzxdzwczlm: simple Destruction method: cryotherapy Informed consent: discussed and consent obtained Informed consent comment: The risks of the procedure were discussed, including, but not limited to risks of scarring, darker or value analyst pigmentary changes, recurrence, infection, and incomplete removal [...] or tenderness. Additional details: Previous accession number: [id number] University Medical CenterNo Panel InformationOrdered By: Pat Mcfarland on 61-50-1832MWUE [facility] Work Phone: abstracton [id number] Diana Champion 1955 F Date Provider Department Center 10/24/2024 EMELIA MORALES ONC DCC Family History Problem Relation Age of Onset Heart failure Mother Heart disease Father Family Status - Relation Status Age at Mother FatherNormalUniversity of Rolling Plains Memorial Hospital Urineon 26-58-9783Oeicmifv identified Cx Nom (U)Microbiology PROCEDURE: Urine Culture [...] interp EC Entclo Klepne Antibiotic CUCO Dilutn UCCO Interp CUCO Dilutn CUCO Interp CUCO Dilutn [...] This test was performed at: [facility], [address] [place] [address], [address]- , , VnxcpaUelrsjBucyrus Community HospitalComment on above:Performed By: #### [id number] #### [facility] [address] [place] [address]Wapgyqlzhm Visit Summaryon 38-39-8025Scytgvokvv Visit Summary Ambulatory Visit Summary DIANA CHAMPION :1955 Visit Date:10/15/2024 Ambulatory Visit Instructions Your Diagnosis Urge incontinence Your Care Team Attending Physician - JOSE ALEJANDRO MICHAUD, AMG Hester Primary Care Physician - CARLITA DRAPER, [...] MICHAUD, MAG Hester Where: [facility] [address] [place] [address]- Medications What How Much When Instructions Unchanged [...] you for choosing us for your care. [facility] HospitalNo Panel Informationon 66-38-2570Xmfq of biopsy: tangential Informed consent: discussed and [...] Amount of lidocaine used: 0.5 [facility]36on Faxed to [facility]. Ticker put in for Nov 2024 for patient to be scheduled with Dr. Church.[facility]36on 32-49-939973Foxvfqm called requesting clearance prior to cataract surgery. 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 Please advise. Thanks.[facility] Medical CenterEPITHELIAL CELLSon 26-76-9460Tkhfarsigf cells LM Ql (Urine sed) Epithelial Cells Few [employer] HealthcareNo Panel Informationon 26-45-2155NPHGGVNYRLYNQ HealthcareRESULT 1 on 06-18-3460XHLJBL 1 Result 1 Moderate budding yeast present. NOMS HealthcareRESULT 2on 09-37-3483BAIAWN 2 Result 2 Few gram positive cocci NOMS HealthcareRESULT 3on 83-20-3689DYFJSK 3 Result 3 NURSE CHARGE RN NOMS HealthcareRESULT 4on 35-00-1767NEYIPT 4 Result 4 NURSE CHARGE RN NOMS HealthcareWHITE BLOOD CELLSon 53-11-9579PUPVW BLOOD CELLS White Blood Cells NOMSsm Saint Mary'S Health CenterWHITE BLOOD CELLSFewWashington University Medical CenterALL CBC WITH AUTO DIFFon 42-84-4997ANQLCQLBA ABSOLUTE AUTO0.1NOMS HealthcareBasophils/100 WBC (Bld)0.5 % 0.2 - 2.0 %NOMS [facility] HospitalEosinophils/100 WBC (Bld)1.5 %0.9 - 7.0 %[facility] Medical CenterErythrocyte distribution width (RBC) [Ratio]13.0 %11.0 - 15.0 %[facility] Medical CenterHematocrit (Bld) [Volume fraction]39.0 %36.0 - 48.0 %[facility] Hemoglobin (Bld) [Mass/Vol]12.2 g/dL12.0 - 16.0 g/dLWashington University Medical CenterIMMATURE GRANULOCYTES ABS AUTO0.22HighNOMercy Hospital JoplinImmature granulocytes/100 WBC (Bld) 2.4 %High0.0 - 0.5 %[facility] Medical CenterInterpretation and review of laboratory resultsAbnormalNOMercy Hospital JoplinLYMPHOCYTES ABSOLUTE AUTO1.6NOMS [facility] Lymphocytes/100 WBC (Bld)17.2 %Low20.5 - 60.0 %[facility] ServicesH (RBC) [Entitic mass]29.7 pg26.7 - 34.0 pgHeartland Behavioral Health ServicesHC (RBC) [Mass/Vol]31.3 g/dL29.9 - 35.2 g/dLHeartland Behavioral Health ServicesV (RBC) [Entitic vol]94.9 fL81.0 - 99.0 fLWashington University Medical CenterMONOCYTES ABSOLUTE AUTO0.8NOMS HealthcareMonocytes/100 WBC (Bld)8.3 % 1.7 - 12.0 %[facility] Medical CenterNEUTROPHILS ABSOLUTE AUTO6.4N[facility] Healthcare Neutrophils/100 WBC (Bld)70.1 %43.0 - 75.0 %[facility] University Medical CenterPlatelet mean volume (Bld) [Entitic vol]8.8 fLLow9.5 - 13.5 fLNOMS HealthcareTB EO #0.1NOMS HealthcareTBH FSE730XQMF HealthcareTB RBC4.11LowNOMS HealthcareTBH WBC9.1NOMS HealthcareCLINISYNCNOMS HealthcareTelemedicineon [id number] Diana Champion 1955 Provider Department Center 07/11/2024 Nicholas-EMELIA YOO ONC DCC Family History Problem Relation Age of Onset Heart failure Mother Heart disease Father Family Status - Relation Status Age at Mother Father Level of Service:[address] [place] PHYS/QHP TELEPHONE EVALUATION 21-30 MIN () Reason for Visit and Comments: Telehealth Phone Visit [122] - Tracheobronchomalacia follow up per Dr Canseco. NormalUniHighland District Hospital 92-62-3375BJS&P reviewed. The patient was examined and there [...] focal deficit PSYCH: appropriate mood, affect, and judgement.NormalUnHolzer HospitalNURSNOTEon 45-91-3884NDXTLPLGKcxwyj up at [facility] [place] with Matthew Vargas May resume a Regular Diet and home medications.NormalUnHolzer HospitalNURSNOTEBronchoscopy Findings: TracheobronchomalaciaNormal [facility] CenterTelephoneon [id number] Diana Champion 1955 Provider Department Center 06/27/2024 SOURAV DAVID ONC DCC Family History Problem Relation Age of Onset Heart failure Mother Heart disease Father Family Status - Relation Status Age at Mother FatherNormalUniversMercy Health Tiffin HospitalPrep for Procedureon 06-26-2024 Prep for [id number] Diana Champion 1955 F Date Provider Department Center 06/26/2024 [facility]ES [facility] Family History Problem Relation Age of Onset Heart failure Mother Heart disease Father Family Status - Relation Status Age at Mother FatherNormalUniversMercy Health Tiffin HospitalHPon 10-64-1701WF Attestation signed by Emelia Yoo MD at [...] Age: 68 y.o. : 1955 Account No.: [id number] Referring physician: Dr. Bo Mcclain Chief complaint: Recurreny pneumonia HPI Diana Champion is a 68 y.o. female with PMHx of reportedly COPD, chronic hypoxic respiratory failure on 2L home O2 who is presenting to clinic as a new patient after being referred by Dr. Bo Baker of [facility]. Patient has been admitted 4 times [...] Past Medical History: Diagnosis Date Asthma Cancer ([facility]) COPD (chronic obstructive pulmonary disease) ([facility]) Coronary artery disease GERD (gastroesophageal [...] mouth every other day. Yes Historical Provider, yhvqnsldkna-lyoitsetu-fmhzswps 100-62.5-25 mcg blister with device Yes Historical [...] mEq ER ta (more content not included)...Normal [facility] Medical CenterTelemedicineon [id number] Diana Champion 1955 F Date Provider Department Center 06/25/[address] [facility] ONC DCC Family History Problem Relation Age of Onset Heart failure Mother Heart disease Father Family Status - Relation Status Age at Mother Father Level of Service:[address]13 [place] PHYS/QHP TELEPHONE EVALUATION 21-30 MIN () Reason for Visit and Comments: New Patient [632] - NURSE CHARGE RN REFERRED BY BO 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 CT DONE 04-11-24 AND 06-07-24 AT [facility]. RECORDS SCANNED INTO MEDIA. FILMS REQUESTED- requested 3 times and [employer] IS DOWN. Could not get films.Normal [facility] VA Medical CenterCA ECHO DOPPLER COMPLETEon 61-62-8458Egu [address] [address] Cardiology Report Signed Patient: DIANA CHAMPION MR#: [id number] : 1955 Acct:[id number] Age/Sex: 68 / F ADM Date: 05/28/24 Loc: CARD Attending Dr: Nasim Church M.D. Ordering Physician: Nasim Church M.D. Date of Service: 05/28/24 Procedure(s): CA echo doppler complete Accession Number(s): [id number] cc: Nasim Church M.D.; Shaikh Eva Ohara Patient Name: DIANA CHAMPION MR#: [id number] : 1955 Exam Date: 05/28/2024 Ordering Doctor: DR NASIM CHURCH M.D. ECHOCARDIOGRAM REPORT PROCEDURE: CA ECHO DOPPLER [...] 38.40 ml, 38.40 ml Dictated by: Alicia iLmon M.D. on 05/29/2024 at 15:46 Approved by: Alicia Limon M.D. on 05/29/2024 at 15:49 Dictated By: ALICIA LIMON (more content not included)...TBHRadiology, Radiologist, MD - 05/29/2024 [place] [address] Cardiology Report Signed Patient: DIANA CHAMPION MR#: [id number] : 1955 Acct:[id number] Age/Sex: 68 / F ADM Date: 05/28/24 Loc: CARD Attending Dr: Nasim Church M.D. Ordering Physician: Nasim Church M.D. Date of Service: 05/28/24 Procedure(s): CA echo doppler complete Accession Number(s): [id number] cc: Nasim Church M.D.; Shaikh Eva Ohara Patient Name: DIANA CHAMPION MR#: [id number] : 1955 Exam Date: 05/28/2024 Ordering Doctor: DR NASIM CHURCH M.D. ECHOCARDIOGRAM REPORT PROCEDURE: CA ECHO DOPPLER [...] Dictated By: ALICIA LIMON Signed By: 05/29/24 1554 DD/ 1544 TD/TT: Retanner: WILL HealthcareRadiology Study observation (narrative)WILL ShearerCA ECHO DOPPLER COMPLETEOrdered By: Radiologist Radiology on 21-30-0879DVBB Healthcare Work Phone: Office Visiton 35-21-6392Leusah-up [id number] Diana Champion 1955 F Date Provider Department Center 05/13/[address] [place] [address] Family History Problem Relation Age of Onset Heart failure Mother Heart disease Father Family Status - Relation Status Age at Mother Father Level of Service:[address] [place] OFFICE/OUTPATIENT ESTABLISHED MOD MDM 30 [facility] HospitalXR CHEST 2Von 86-39-5397[place], [place] [address] XRay Report Signed Patient: DIANA CHAMPION MR#: [id number] : 1955 Acct:[id number] Age/Sex: 68 / F ADM Date: 04/03/24 Loc: RAD Attending Dr: Shaikh Lev Velasquez Ordering Physician: Shaikh Eva Ohara Date of Service: 04/03/24 Procedure(s): XR chest 2V Accession Number(s): [id number] cc: Shaikh Eva Ohara [address] [address] Patient Name: DIANA CHAMPION MRN: [id number] date: 1955 Sex: F Assigned Patient Location: [facility] Current Patient Location: [facility] Accession/Order Number: [id number] Exam Date: 04/03/2024 15:40 Report Date: 04/03/2024 [...] of right lung infiltrate Electronically authenticated by: BRITTAYN WALTERS Date: 04/03/2024 16:27 Dictated By: Brittany Walters M.D. Signed By: 04/03/24 1630 DD/ 1627 TD/TT: Retanner:TBHRadiology, Radiologist, - 04/03/2024 [place] [address] XRay Report Signed Patient: DIANA CHAMPION MR#: [id number] : 1955 Acct:[id number] Age/Sex: 68 / F ADM Date: 04/03/24 Loc: RAD Attending Dr: Shaikh Lev Velasquez Ordering Physician: Shaikh Eva Ohara Date of Service: 04/03/24 Procedure(s): XR chest 2V Accession Number(s): [id number] cc: Shaikh Eva Ohara The [address] [address] Patient Name: DIANA CHAMPION MRN: TBH:[id number] date: 1955 Sex: F Assigned Patient Location: RAD Current Patient Location: RAD Accession/Order Number: [id number] Exam Date: 04/03/2024 15:40 Report Date: 04/03/2024 [...] right lung infiltrate Electronically authenticated by: BRITTANY WALTERS Date: 04/03/2024 16:27 Dictated By: Brittany Walters M.D. Signed By: 04/03/24 1630 DD/ 1627 TD/TT: Retanner: NOMS HealthcareRadiology Study observation (narrative)NOMS HealthcareXR CHEST 2V Ordered By: Radiologist Radiology on 22-24-6223OGRP Healthcare Work Phone: XR CHEST 2Von 98-31-8384IwaN[place], [place] [address] XRay Report Signed Patient: DIANA CHAMPION MR#: [id number] : 1955 Acct:[id number] Age/Sex: 68 / F ADM Date: 03/27/24 Loc: RAD Attending Dr: Shaikh Lev Velasquez Ordering Physician: Shaikh Eva Ohara Date of Service: 03/27/24 Procedure(s): XR chest 2V Accession Number(s): [id number] cc: Shaikh Eva Ohara [address] [address] Patient Name: DIANA CHAMPION MRN: [facility]:[id number] date: 1955 Sex: F Assigned Patient Location: RAD Current Patient Location: RAD Accession/Order Number: [id number] Exam Date: 03/27/2024 14:40 Report Date: 03/27/2024 [...] to document resolution Electronically authenticated by: BRITTANY WALTERS Date: 03/27/2024 16:02 Dictated By: Brittany Walters M.D. Signed By: 03/27/24 1605 DD/ 1602 TD/TT: Retanner:AMINTAHRadiology, Radiologist, - 03/27/2024 [place] [address] XRay Report Signed Patient: DIANA CHAMPION MR#: [id number] : 1955 Acct:[id number] Age/Sex: 68 / F ADM Date: 03/27/24 Loc: RAD Attending Dr: Shaikh Lev Velasquez Ordering Physician: Shaikh Eva Ohara Date of Service: 03/27/24 Procedure(s): XR chest 2V Accession Number(s): [id number] cc: Shaikh Eva Ohara The [address] [address] Patient Name: DIANA CHAMPION MRN: [facility]:[id number] date: 1955 Sex: F Assigned Patient Location: RAD Current Patient Location: RAD Accession/Order Number: [id number] Exam Date: 03/27/2024 14:40 Report Date: 03/27/2024 [...] to document resolution Electronically authenticated by: BRITTANY WALTERS Date: 03/27/2024 16:02 Dictated By: Brittany Walters M.D. Signed By: 03/27/24 1605 DD/ 1602 TD/TT: Retanner: WILL HealthcareRadiology Study observation (narrative)NOM HealthcareXR CHEST 2V Ordered By: Radiologist Radiology on 79-51-9470KVOD Healthcare Work Phone: XR THORACIC SPINE 3Von 98-60-6837[address] [address] XRay Report Signed Patient: DIANA CHAMPION MR#: [id number] : 1955 Acct:[id number] Age/Sex: 68 / F ADM Date: 03/26/24 Loc: RAD Attending Dr: Jose Saucedo NP Ordering Physician: Jose Saucedo NP Date of Service: 03/26/24 Procedure(s): XR thoracic spine 3V Accession Number(s): [id number] cc: Shaikh Eva Ohara; Jose Saucedo NP [address] [place] [id number] Patient Name: DIANA CHAMPION MRN: TBH:[id number] date: 1955 Sex: F Assigned Patient Location: [facility] Current Patient Location: Accession/Order Number: [id number] Exam Date: 03/26/2024 15:13 Report Date: 03/27/2024 [...] Moderate degenerative spondylosis Electronically authenticated by: BRITTANY WALTERS Date: 03/27/2024 07:50 Dictated By: Brittany Walters M.D. Signed By: 03/27/24 0753 DD/ 0750 TD/TT: Retanner:TBHRadiology, Radiologist, MD - 03/27/2024 [place] [address] XRay Report Signed Patient: DIANA CHAMPION MR#: [id number] : 1955 Acct:[id number] Age/Sex: 68 / F ADM Date: 03/26/24 Loc: RAD Attending Dr: Jose Saucedo NP Ordering Physician: Jose Saucedo NP Date of Service: 03/26/24 Procedure(s): XR thoracic spine 3V Accession Number(s): [id number] cc: Shaikh Eva Ohara; Jose Saucedo NP [facility] [place] 6[address] Patient Name: DIANA CHAMPION MRN: TBH:[id number] date: 1955 Sex: F Assigned Patient Location: [facility] Current Patient Location: Accession/Order Number: [id number] Exam Date: 03/26/2024 15:13 Report Date: 03/27/2024 [...] Moderate degenerative spondylosis Electronically authenticated by: BRITTANY WALTERS Date: 03/27/2024 07:50 Dictated By: Brittany Walters M.D. Signed By: 03/27/24 0753 DD/ 075 TD/TT: Retanner: WILL HealthcareRadiology Study observation (narrative)[facility] HealthcareXR THORACIC SPINE 3VOrdered By: Radiologist Radiology on 30-22-3929VDII [facility] Work Phone: Erythrocyte distribution width Auto (RBC) [Ratio]on 86-06-9811Pdoisuehhmq distribution width (RBC) [Ratio]13.2 %11.0-15.0[facility] HospitalEstimated glomerular filtration rate (GFR) non- Americanon 81-07-5779DBX/1.73 sq M.predicted among non-blacks MDRD (S/P/Bld) [Vol rate/Area]57 mL/min/{1.73_m2}>=60[facility] Hematocrit Auto (Bld) [Volume fraction]on 58-05-4482Bdxplqwhdt (Bld) [Volume fraction]38.7 %36.0-48.0[facility] HospitalHemoglobin [Mass/volume] in Bloodon 81-56-5909Iuqupzyayj (Bld) [Mass/Vol]12.2 g/dL12.0-16.[address] [facility] HospitalLaboratory - Chemistry and Chemistry - challengeon 59-95-2048Hrmqmgo [Mass/Vol]3.0 g/dL3.4-5.0[facility] HospitalCalcium [Mass/Vol]8.8 mg/dL8.5-10.1FRegency Hospital ToledoChloride [Moles/Vol]104 mmol/E08-709EnancezwyMercy Health St. Joseph Warren HospitalCO2 [Moles/Vol]32.2 mmol/L21.0-32.0[facility] HospitalCreatinine [Mass/Vol]0.97 mg/dL0.55-1.02[facility] HospitalGFR/1.73 sq M.predicted MDRD (S/P/Bld) [Vol rate/Area]mL/min/{1.73_m2}>=60[facility] HospitalGlucose [Mass/Vol]67 mg/kG90-821NgsslgxgrMercy Health St. [facility] Magnesium [Mass/Vol]1.9 mg/dL1.8-2.4FRegency Hospital ToledoPotassium [Moles/Vol]3.4 mmol/L3.5-5.1FMorrow County Hospitalodium [Moles/Vol] 143 mmol/I893-515OxapnqqqvMercy Health St. Joseph Warren HospitalUrate [Mass/Vol]5.0 mg/dL 2.6-6.0[facility] HospitalUrea nitrogen [Mass/Vol]16.0 mg/dL 7.0-18.0[facility] HospitalUrea nitrogen/Creatinine [Mass ratio] 16.5 mg/mgMercy Health St. Joseph Warren HospitalLeukocytes [#/volume] corrected for nucleated erythrocytes in Blood by Automated counon 70-60-5891QDQ corrected for nucl RBC Auto (Bld) [#/Vol]8.1 10 3/uL4.0-11.0[facility] MCH Auto (RBC) [Entitic mass]on 67-09-9453BBP (RBC) [Entitic mass]30.4 pg 26.7-34.0[facility] HospitalMCHC Auto (RBC) [Mass/Vol]on 12-37-9360WBBD (RBC) [Mass/Vol]31.5 g/dL29.9-35.2FRegency Hospital ToledoMCV Auto (RBC) [Entitic vol]on 11-19-1017MGE (RBC) [Entitic vol]96.5 fL 81.0-99.0[facility] HospitalNo Panel Informationon 85-22-9832Mwdcc Random Sacdproghv47.27 mg/dL20.00-300.00[facility] HospitalUrine Random Total Protein<6.0 mg/dL<=11.9[facility]25-Hydroxy Vitamin D Total37.1 ng/mLMercy Health St. Joseph Warren HospitalComment on above:<20 ng/mL Vit D -<30 ng/mL Vit D olcrsiwdnexp05-455 ng/mL Vit D sufficient>100 ng/mL Potential ToxicityParathyroid Hormone (Intact)36 pg/mL15-[address] [facility] HospitalComment on above:Performed at: - [facility] [id number] Director: Raphael Marrero PhD, Phone: [phone] Level3.2 mg/dL2.6-4.7FRegency Hospital ToledoPlatelet mean volume Auto (Bld) [Entitic vol]on 60-02-9047Hrxlvjde mean volume (Bld) [Entitic vol]9.1 fL9.5-13.5FRegency Hospital Toledo Platelets Auto (Bld) [#/Vol]on 70-66-0691Wnbcpdoir (Bld) [#/Vol]247 10 3/uL 150-450[facility] HospitalRBC Auto (Bld) [#/Vol]on 65-32-5629CLY (Bld) [#/Vol]4.01 10 6/uL4.20-5.40[facility]acon[facility] Hospitalerum or plasma anion gap determinationon 95-01-9239Owbth gap [Moles/Vol]10.2 mmol/L [facility] HospitalMM TOMOSYNTHESIS SCREENING BIon 50-08-9171[place] [address] Mammography Report Signed Patient: DIANA CHAMPION MR#: [id number] : 1955 Acct:[id number] Age/Sex: 68 / F ADM Date: 02/28/24 Loc: MAMMO Attending Dr: Kaylene López NP Ordering Physician: Kaylnee López NP Results: Date of Service: 02/28/24 Follow Up: Procedure(s): MM tomosynthesis screening BI Accession Number(s): [id number] cc: Kaylene López NP; Shaikh Eva Ohara Patient Name: DIANA CHAMPION MR#: [id number] : 1955 Exam Date: 02/28/2024 Ordering Doctor: [...] radiation, chemotherapy Family Cancers None LOCATION: The [facility] BREAST COMPOSITION: The breasts are [...] PALPABLE LUMP SHOULD BE BIOPSIED. Dictated by: Steph Granados M.D. on 02/29/2024 at 16:00 Approved by: Steph Granados M.D. on 02/29/2024 at 16:01 Dictated By: Steph Granados M.D. Signed By: 02/29/24 1602 DD/ 1601 TD/TT: Retanner:TBHRadiology, Radiologist, MD - 02/29/2024 [place] [address] Mammography Report Signed Patient: DIANA CHAMPION MR#: [id number] : 1955 Acct:[id number] Age/Sex: 68 / F ADM Date: 02/28/24 Loc: MAMMO Attending Dr: Kaylene López NP Ordering Physician: Kaylene López NP Results: Date of Service: 02/28/24 Follow Up: Procedure(s): MM tomosynthesis screening BI Accession Number(s): [id number] cc: Kaylene López NURSE CHARGE RN; Shaikh Eva Ohara Patient Name: DIANA CHAMPION MR#: [id number] : 1955 Exam Date: 02/28/2024 Ordering Doctor: [...] radiation, chemotherapy Family Cancers None LOCATION: The [facility] BREAST COMPOSITION: The breasts are [...] PALPABLE LUMP SHOULD BE BIOPSIED. Dictated by: Steph Granados M.D. on 02/29/2024 at 16:00 Approved by: Steph Granados M.D. on 02/29/2024 at 16:01 Dictated By: Steph Granados M.D. Signed By: 02/29/24 1602 DD/ 1601 TD/TT: Retanner: [facility] FOR BOYSKathy HealthcareRadiology Study observation (narrative)[facility] TOMOSYNTHESIS SCREENING BIOrdered By: Radiologist Radiology on 90-38-3688UEQQ [facility] Work Phone: MR LUMBAR SPINE WO CONon 13-68-4928DfuN[place], [place] [address] Magnetic Resonance Report Signed Patient: DIANA CHAMPION MR#: [id number] : 1955 Acct:[id number] Age/Sex: 68 / F ADM Date: 02/13/24 Loc: MRI Attending Dr: Shaikh Lev Velasquez Ordering Physician: Shaikh Eva Ohara Date of Service: 02/13/24 Procedure(s): MR lumbar spine wo con Accession Number(s): [id number] cc: Shaikh Eva Ohara [place] [address] Patient Name: DIANA CHAMPION MRN: [facility]:[id number] date: 1955 Sex: F Assigned Patient Location: MRI Current Patient Location: MRI Accession/Order Number: [id number] Exam Date: 02/13/2024 10:45 Report Date: 02/13/2024 [...] L3-L4 foraminal stenosis Electronically authenticated by: BRITTANY WALTERS Date: 02/13/2024 14:06 Dictated By: Brittany Walters M.D. Signed By: 02/13/24 1408 DD/ 1406 TD/TT: Retanner:TBHRadiology, Radiologist, - 02/13/2024 [place] [address] Magnetic Resonance Report Signed Patient: DIANA CHAMPION MR#: [id number] : 1955 Acct:[id number] Age/Sex: 68 / F ADM Date: 02/13/24 Loc: MRI Attending Dr: Shaikh Lve Velasquez Ordering Physician: Shaikh Eva Ohara Date of Service: 02/13/24 Procedure(s): MR lumbar spine wo con Accession Number(s): [id number] cc: Shaikh Eva Ohara [address] [place] [address] Patient Name: DIANA CHAMPION MRN: [id number] date: 1955 Sex: F Assigned Patient Location: MRI Current Patient Location: MRI Accession/Order Number: [id number] Exam Date: 02/13/2024 10:45 Report Date: 02/13/2024 [...] L3-L4 foraminal stenosis Electronically authenticated by: BRITTANY WALTERS Date: 02/13/2024 14:06 Dictated By: Brittany Walters M.D. Signed By: 02/13/24 1408 DD/ 1406 TD/TT: Retanner: WILL HealthcareRadiology Study observation (narrative)[facility] LUMBAR SPINE WO CONOrdered By: Radiologist Radiology on 66-94-0547[facility] Work Phone: XR CHEST 1 Von 84-84-6237HooN[place], [place] [address] XRay Report Signed Patient: DIANA CHAMPION MR#: [id number] : 1955 Acct:[id number] Age/Sex: 68 / F ADM Date: Loc: ER Attending Dr: Ordering Physician: Tere Rodriguez Date of Service: 02/03/24 Procedure(s): XR chest 1V Accession Number(s): [id number] cc: Shaikh Eva Ohara; Tere Rodriguez [address] [place] [address] Patient Name: DIANA CHAMPION MRN: [id number] date: 1955 Sex: F Assigned Patient Location: ED.MAIN Current Patient Location: ER Accession/Order Number: [id number] Exam Date: 02/03/2024 09:15 Report Date: 02/03/2024 [...] to have cleared elsewhere. Electronically authenticated by: SERAFIN TILLMAN Date: 02/03/2024 09:41 Dictated By: Serafin Tillman M.D. Signed By: 02/03/24942 DD/ 0 TD/TT: Retanner:AMINTAHRadiology, Radiologist, - 02/07/2024 [place] [address] XRay Report Signed Patient: DIANA CHAMPION MR#: [id number] : 1955 Acct:[id number] Age/Sex: 68 / F ADM Date: Loc: ER Attending Dr: Ordering Physician: Tere Rodriguez Date of Service: 02/03/24 Procedure(s): XR chest 1V Accession Number(s): [id number] cc: Shaikh Eva Ohara; Tere Rodriguez [address] [address] Patient Name: DIANA CHAMPION MRN: [facility]:[id number] date: 1955 Sex: F Assigned Patient Location: ED.MAIN Current Patient Location: ER Accession/Order Number: [id number] Exam Date: 02/03/2024 09:15 Report Date: 02/03/2024 [...] to have cleared elsewhere. Electronically authenticated by: SERAFIN TILLMAN Date: 02/03/2024 09:41 Dictated By: Serafin Tillman M.D. Signed By: 02/03/2443 DD/ 0 TD/TT: Retanner: WILL HealthcareRadiology Study observation (narrative)[facility] HealthcareXR CHEST 1 VOrdered By: Radiologist Radiology on 98-02-3384ML[facility] Work Phone: XR LUMBAR SPINE 2 OR 3Von 62-08-6425[address] [address] XRay Report Signed Patient: DIANA CHAMPION MR#: [id number] : 1955 Acct:[id number] Age/Sex: 68 / F ADM Date: 01/25/24 Loc: RAD Attending Dr: Shaikh Lev Velasquez Ordering Physician: Shaikh Eva Ohara Date of Service: 01/25/24 Procedure(s): XR lumbar spine 2-3V Accession Number(s): [id number] cc: Shaikh Eva Ohara [facility] [place] [address] Patient Name: DIANA CHAMPION MRN: [facility]:[id number] date: 1955 Sex: F Assigned Patient Location: [facility] Current Patient Location: Accession/Order Number: [id number] Exam Date: 01/25/2024 12:50 Report Date: 01/26/2024 [...] lumbar spine; grossly stable. Electronically authenticated by: STEPH GRANADOS Date: 01/26/2024 07:39 Dictated By: Steph Granados M.D. Signed By: 01/26/24 0741 DD/ 0739 TD/TT: Retanner:MICHELLEadiology, Radiologist, - 01/26/2024 [place] [address] XRay Report Signed Patient: DIANA CHAMPION MR#: [id number] : 1955 Acct:[id number] Age/Sex: 68 / F ADM Date: 01/25/24 Loc: RAD Attending Dr: Shaikh Lev Velasquez Ordering Physician: Shaikh Eva Ohara Date of Service: 01/25/24 Procedure(s): XR lumbar spine 2-3V Accession Number(s): [id number] cc: Shaikh Eva Ohara [place] [address] Patient Name: DIANA CHAMPION MRN: [id number] date: 1955 Sex: F Assigned Patient Location: [facility] Current Patient Location: Accession/Order Number: [id number] Exam Date: 01/25/2024 12:50 Report Date: 01/26/2024 [...] lumbar spine; grossly stable. Electronically authenticated by: STEPH GRANADOS Date: 01/26/2024 07:39 Dictated By: Steph Granados M.D. Signed By: 01/26/24 0741 DD/ 0739 TD/TT: Retanner: WILL HealthcareRadiology Study observation (narrative)[facility] HealthcareXR LUMBAR SPINE 2 OR 3VOrdered By: Radiologist Radiology on 81-11-7789EZLU [facility] Work Phone: XR CHEST 2Von 31-38-0520Pl[address] [address] XRay Report Signed Patient: DIANA CHAMPION MR#: [id number] : 1955 Acct:[id number] Age/Sex: 68 / F ADM Date: 10/25/23 Loc: RAD Attending Dr: Bo Mcclain D.O. Ordering Physician: Bo Mcclain D.O. Date of Service: 10/25/23 Procedure(s): XR chest 2V Accession Number(s): [id number] cc: Shaikh Eva Ohara; Bo Mcclain D.O. The [address] [address] Patient Name: DIANA CHAMPION MRN: [id number] date: 1955 Sex: F Assigned Patient Location: [facility] Current Patient Location: [facility] Accession/Order Number: [id number] Exam Date: 10/25/2023 09:31 Report Date: 10/25/2023 [...] correlation is suggested. Electronically authenticated by: BRITTANY BUTT Date: 10/25/2023 09:45 Dictated By: Brittany Butt M.D. Signed By: 10/25/2348 DD/ 4 TD/TT: Retanner:AMINTAHRadiology, Radiologist, - 10/25/[address] [address] XRay Report Signed Patient: DIANA CHAMPION MR#: [id number] : 1955 Acct:[id number] Age/Sex: 68 / F ADM Date: 10/25/23 Loc: RAD Attending Dr: Bo Mcclain D.O. Ordering Physician: Bo Mcclain D.O. Date of Service: 10/25/23 Procedure(s): XR chest 2V Accession Number(s): [id number] cc: Shaikh Eva Ohara; Bo Mcclain D.O. [place] [address] Patient Name: DIANA CHAMPION MRN: [id number] date: 1955 Sex: F Assigned Patient Location: [facility] Current Patient Location: [facility] Accession/Order Number: [id number] Exam Date: 10/25/2023 09:31 Report Date: 10/25/2023 [...] correlation is suggested. Electronically authenticated by: BRITTANY BUTT Date: 10/25/2023 09:45 Dictated By: Brittany Butt M.D. Signed By: 10/25/23947 DD/ 4 TD/TT: Retanner: WILL HealthcareRadiology Study observation (narrative)[facility] HealthcareXR CHEST 2V Ordered By: Radiologist Radiology on 66-94-0209AISI [facility] Work Phone: SYMPTOMATIC COVID-19 ANTIGENon 25-22-4042PPT Statement SEE BELOWCincinnati VA Medical CenterComment on above:Result Comment: This test has not [...] is revoked sooner.Performed By: #### CVDAGS #### [facility] [address] [place] [address] Dr. Shayne Fonseca-CoV-2 (COVID-19) RNA KAYLEE+probe Ql (Unsp spec)Positive AbnormalNEGATIVEThe [facility] HospitalComment on above:Performed By: #### CVDAGS #### [facility] [address] [place] [address] Dr. Shayne RoldanXR LSPINE 2_3 VIEWSon 60-54-0798FM LSPINE 2_3 VIEWSEXAMINATION: XR LSPINE 2_3 VIEWS [...] Electronically authenticated by: STEPH GRANADOS Date: 2023-03-24 12:52[facility] Medical CenterPT INTACTon 58-60-4923UBJ, Qnfodp67 pg/mLCritically nwjs05-21 The [facility] HospitalComment on above:Performed By: #### PTHINT #### [facility] [address] [place] [address] Dr. Shayne RoldanHEMOGRAM AND PLATELon 72-95-7038Xhgasvwboc (Bld) [Volume fraction]44.4 %Wtpkep43.0-48.0The [facility] HospitalComment on above:Performed By: #### HH #### [facility] [address] [place] [address] Dr. Shayne RoldanHemoglobin (Bld) [Mass/Vol]14.5 g/gZZcilpa19.0-16.0The [facility] HospitalComment on above:Performed By: #### HH #### [facility] [address] [place] [address] Dr. Shayne SpearsH (RBC) [Entitic mass]30.3 zxOvhyed42.7-34.0The [facility] HospitalComment on above:Performed By: #### HH #### [facility] [address] [place] [address] Dr. Shayne SpearsHC (RBC) [Mass/Vol]32.7 g/eADcyrxm16.9-35.2The [facility] HospitalComment on above:Performed By: #### HH #### [facility] [address] [place] [address] Dr. Shayne SpearsV (RBC) [Entitic vol]92.9 cTBcavjn93.0-99.0The [facility] HospitalComascension [facility] on above:Performed By: #### HH #### [facility] [address] [place] [address] Dr. Shayne RoldanPLT367 103/jnMfjepy820-631Vjy [facility] HospitalComascension [facility] on above: Performed By: #### HH #### [facility] [address] [place] [address] Dr. Shayne RoldanRBC4.78 106/ulNormal4.20-5.40The [facility] HospitalComascension prov[facility] on above:Performed By: #### HH #### [facility] [address] [place] [address] Dr. Shayne RoldanWBC9.9 103/ulNormal4.0-11.0The [facility] HospitalComascension [facility] on above: Performed By: #### HH #### [facility] [address] [place] [address] Dr. Shayne RoldanMAGNESIUMon 23-41-3675Vmkumorou [Mass/Vol]1.6 mg/dLCritically low 1.8-2.4The [facility] HospitalComment on above:Performed By: #### MG, RENAL, URIC #### [facility] [address] [place] [address] Dr. Shayne RoldanRENAL FUNCTION PANELon 90-96-1871Uzfqohf [Mass/Vol]3.4 g/dLNormal 3.4-5.0The [facility] HospitalComment on above:Performed By: #### MG, RENAL, URIC #### [facility] [address] [place] [address] Dr. Shayne RoldanCalcium [Mass/Vol]8.7 mg/dLNormal8.5-10.1The [facility] Comment on above:Performed By: #### MG, RENAL, URIC #### [facility] [address] [place] [address] Dr. Shayne RoldanChloride [Moles/Vol]104 mmol/PMuzlep14-690Hoc [facility] Comment on above:Performed By: #### MG, RENAL, URIC #### [facility] [address] [place] [address] Dr. Shayne RoldanCO2 [Moles/Vol]25.9 mmol/PGcecln69.0-32.0The [facility] Comment on above:Performed By: #### MG, RENAL, URIC #### [facility] [address] [place] [address] Dr. Shayne RoldanCreatinine [Mass/Vol]1.19 mg/dLCritically high0.55-1.02The [facility] HospitalComment on above:Performed By: #### MG, RENAL, URIC #### [facility] [address] [place] [address] Dr. Bella ChangEGFR-AF ZMMOFNXK69 mL/min/1.89u6Fpgdlesgjk low>=60The [facility] HospitalComment on above:Performed By: #### MG, RENAL, URIC #### [facility] [address] [place] [address] [address] Bella ChangEGFR-NON AF IQNISJJT59 mL/min/1.63o4Xnqpbuxgbu low>=60The [facility] HospitalComment on above:Performed By: #### MG, RENAL, URIC #### [facility] [address] [place] [address] [address] Shayne RoldanGlucose [Mass/Vol]193 mg/dLCritically pmhp66-791Snp [facility] HospitalComment on above:Performed By: #### MG, RENAL, URIC #### [facility] [address] [place] [address] [address] Shayne RoldanPhosphate [Mass/Vol]3.2 mg/dLNormal2.6-4.7The [facility] Comment on above:Performed By: #### MG, RENAL, URIC #### [facility] [address] [place] [address] [address] Shayne RoldanPotassium [Moles/Vol]3.9 mmol/LNormal3.5-5.1The [facility] Comment on above:Performed By: #### MG, RENAL, URIC #### [facility] [address] [place] [address] [address] Shayne RoldanSodium [Moles/Vol]140 mmol/BGweihi470-869Czn [facility] Comment on above:Performed By: #### MG, RENAL, URIC #### [facility] [address] [place] [address] [address] Shayne RoldanUrea nitrogen [Mass/Vol]17.0 mg/dLNormal7.0-18.0The [facility] HospitalComment on above:Performed By: #### MG, RENAL, URIC #### [facility] [address] [place] [address] [address] Shayne RoldanUA RANDOM W/MICROSCOPICon 04-23-6686RCRYCMQMHJQWARimalgvfBUKS SEENElyria Memorial HospitalComment on above:Performed By: #### MG, RENAL, URIC #### [facility] [address] [place] [address] [address] Shayne RoldanBilirubin Ql (U)NegativeNormalNEGATIVEElyria Memorial Hospital Comment on above:Performed By: #### MG, RENAL, URIC #### [facility] [address] [place] [address] [address] Shayne Lomeli SEENNormalNONE SEENElyria Memorial HospitalComment on above:Performed By: #### MG, RENAL, URIC #### [facility] [address] [place] [address] [address] Shayne Sierra (U)CLEARNormalCLEARElyria Memorial HospitalComment on above: Performed By: #### MG, RENAL, URIC #### [facility] [address] [place] [address] [address] Shayne Au (U)LT. YELLOWNormalYELLOWElyria Memorial HospitalComment on above:Performed By: #### MG, RENAL, URIC #### [facility] [address] [place] [address] [address] Shayne RoldanCrystals LM Nom (Urine sed)NONE SEENNormalNONE SEENElyria Memorial HospitalComment on above:Performed By: #### MG, RENAL, URIC #### [facility] [address] [place] [address] [address] Bella ChangEpithelial cells LM Ql (Urine sed)RARENormalNONE SEEN /RAREElyria Memorial HospitalComment on above:Performed By: #### MG, RENAL, URIC #### [facility] [address] [place] [address] [address] Shayne RoldanGlucose Ql (U)NegativeNormalNEGATIVEElyria Memorial HospitalComment on above:Performed By: #### MG, RENAL, URIC #### [facility] [address] [place] [address] [address] Shayne RoldanHemoglobin Ql (U)NegativeNormalNEGATIVEElyria Memorial Hospital Comment on above:Performed By: #### MG, RENAL, URIC #### [facility] [address] [place] [address] [address] Shayne RoldanKetones Ql (U)NegativeNormalNEGATIVEElyria Memorial HospitalComment on above:Performed By: #### MG, RENAL, URIC #### [facility] [address] [place] [address] Dr. Shayne RoldanLEUKOCYTESNegativeNormalNEGATIVEThe [facility] HospitalComment on above:Performed By: #### MG, RENAL, URIC #### [facility] [address] [place] [address] Dr. Shayne GrecoCOUSNONMir SEENNormalNONE SEENThe [facility] HospitalComment on above:Performed By: #### MG, RENAL, URIC #### [facility] [address] [place] [address] Dr. Shayne Gordontrite Ql (U)NegativeNormalNEGATIVEThe [facility] HospitalComment on above:Performed By: #### MG, RENAL, URIC #### [facility] [address] [place] [address] Dr. Shayne RoldanpH (U)5.0 [pH]Normal5-9The [facility] HospitalComment on above: Performed By: #### MG, RENAL, URIC #### [facility] [address] [place] [address] Dr. Shayne RoldanGkgoyPYZ6-4Iwfscw5-2Vjb [facility] Centerment on above:Performed By: #### MG, RENAL, URIC #### [facility] [address] [place] [address] Dr. Shayne RoldanSPEC GRAVITY1.152Kjgjip2.005-<=1.025The [facility] HospitalComment on above:Performed By: #### MG, RENAL, URIC #### [facility] [address] [place] [address] Dr. Shayne Espinoza PROTEINNegativeNormalNEGATIVE/ TRACEThe [facility] Comment on above:Performed By: #### MG, RENAL, URIC #### [facility] [address] [place] [address] Dr. Shayne Dennybilinogen Qn (U)0.2 {Rogelio'U}/dLNormal0.2 - 1.0The [facility] HospitalComment on above:Performed By: #### MG, RENAL, URIC #### [facility] [address] [place] [address] Dr. Shayne RoldanWBC0-2AbnormalNONE SEENElyria Memorial HospitalComascension prov[facility] hospital on above: Performed By: #### MG, RENAL, URIC #### [facility] [address] [place] [address] [address] Shayne Daniel ACID SERUMon 81-75-2188Sadny [Mass/Vol]6.1 mg/dLCritically high2.6-6.0The [facility] HospitalComment on above:Performed By: #### MG, RENAL, URIC #### [facility] [address] [place] [address] [address] Shayne Wood T PROTEIN CREAT RATIOon 66-76-7624Dbqftdr (U) [Mass/Vol] 13.0 mg/dLCritically high<=12.0The [facility] on above:Performed By: #### MG, RENAL, URIC #### [facility] [address] [place] [address] [address] Shayne Wheeler PROT CREAT RAT0.16NoAshtabula County Medical CenterComment on above: Performed By: #### MG, RENAL, URIC #### [facility] [address] [place] [address] [address] Shayne Wood CREAT83.60 mg/gBXkqgbd81.00-300.00[facility] Comment on above:Performed By: #### MG, RENAL, URIC #### [facility] [address] [place] [address] [address] Shayne RoldanVITAMIN D 25 OHon 75-38-8678BSC D 25-OH41.6 ng/mLNormalClermont County Hospital on above:Performed By: #### MG, RENAL, URIC #### [facility] [address] [place] [address] Dr. Shayne Vilchis RANG[place] [facility] HospitalCom[facility] on above: Result Comment: <20 ng/mL Vit D deficient 20 - <30 ng/mL Vit D insufficient 30 - 100 ng/mL Vit D sufficient >100 ng/mL Potential ToxicityPerformed By: #### MG, RENAL, URIC #### [facility] [address] [place], [place] [address] Dr. Shayne RoldanXR CHEST 2 Von 24-06-0062RN CHEST 2 VEXAMINATION: XR CHEST 2 V HISTORY: Cough COMPARISON: Chest x-rays 06/08/2022 TECHNIQUE: PA and lateral chest x-rays FINDINGS: The lung parenchyma is free of consolidation or infiltrate. No pneumothorax or pleural effusion. The cardiac, mediastinal and hilar contours are normal. The visualized osseous structures exhibit no gross abnormality. IMPRESSION: No acute cardiopulmonary abnormality. Electronically authenticated by: BRITTANY GALDAMEZ Date: 2023-02-22 16:15NSelect Medical [facility], AvonMG MAMM SCREEN 3D PRATEEK CADon 32-83-4773OX MAMM SCREEN 3D PRATEEK CAD Patient: DIANA CHAMPION Exam Date: 12/15/2022 : 1955 Gender:F Ordering : DR JACK HALL . Admission #: [id number] Family : Order #: [id number] CLICK HERE TO VIEW EXAM RADIOLOGY REPORT PROCEDURE: MAMMOGRAM SCREENING 3D BILATERAL CAD COMPARISON: MG MAMM SCREEN 3D PRATEEK CAD, 11/26/2021. INDICATIONS: Calculator Name NCI Breast Cancer Risk Assessment Tool 5 Year Breast Cancer Risk 1.20% Lifetime Breast Cancer Risk 4.40% Personal Breast Cancer No Personal Ovarian Cancer No Treatments Excision, radiation, chemotherapy Family Cancers None LOCATION: [facility] BREAST COMPOSITION: Almost entirely fatty. [...] by: Brittany Walters MD on 12/15/2022 at 10:51[facility] CenterXR DEXA BONE DENSITYon 10-02-9832FM DEXA BONE DENSITYEXAMINATION: XR DEXA BONE DENSITY, [...] Electronically authenticated by: STEPH GRANADOS Date: 2022-12-15 09:50[facility] ACOG PANEL 2: 30 to 65on 11-16-2022..NormalClermont County Hospital on above:Performed By: #### [id number] #### [facility] [address] [place] [address] Dr. Shayne RoldanAge [facility] ACOG TestingCommentNoGreene Memorial Hospital on above:Result Comment: <21 or >65 or no age providedPerformed By: #### [id number] #### [facility] [address] [place] [address] Dr. Shayne RoldanDIAGNOSIS:CommentCincinnati Shriners Hospital on above: Result Comment: NEGATIVE FOR INTRAEPITHELIAL LESION OR MALIGNANCY.Performed By: #### [id number] #### [facility] [address] [place] [address] Dr. Shayne RoldanMethodology:CommentNoGreene Memorial Hospital on above: Result Comment: This liquid based ThinPrep(R) pap test was screened with the use of an image guided system.Performed By: #### [id number] #### [facility] [address] [place] [address] Dr. Shayne RoldanNote:CommentCincinnati Shriners Hospital on above:Result Comment: The Pap smear is a screening test designed to aid in the detection of premalignant and malignant conditions of the uterine cervix. It is not a diagnostic procedure and should not be used as the sole means of detecting cervical cancer. Both false-positive and false-negative reports do occur. .Performed By: #### [id number] #### [facility] [address] [place] [address] Dr. Shayne RoldanPerformed by:CommentCincinnati Shriners Hospital on above: Result Comment: Dakota Aguilar, Machining Manager (ASCP)Performed By: #### [id number] #### [facility] [address] [place] [address] Dr. Shayne RoldanSpecimen adequacy:CommentCincinnati Shriners Hospital on above:Result Comment: Satisfactory for evaluation. Endocervical and/or squamous metaplastic cells (endocervical component) are present.Performed By: #### [id number] #### [facility] [address] [place] [address] Dr. Shayne RoldanRENAL FUNCTION PANELon 69-29-9461Qczqcrk [Mass/Vol]3.4 g/dLNormal 3.4-5.0The [facility] HospitalComment on above:Performed By: #### MG, RENAL, URIC #### [facility] [address] [place] [address] Dr. Shayne RoldanCalcium [Mass/Vol]8.4 mg/dLCritically low8.5-10.1The [facility] on above:Performed By: #### MG, RENAL, URIC #### [facility] [address] [place] [address] Dr. Shayne RoldanChloride [Moles/Vol]103 mmol/AQsqped06-384OtkElyria Memorial Hospital Comment on above:Performed By: #### MG, RENAL, URIC #### [facility] [address] [place] [address] Dr. Shayne RoldanCO2 [Moles/Vol]27.8 mmol/KTfrbam15.0-32.0The [facility] Comment on above:Performed By: #### MG, RENAL, URIC #### [facility] [address] [place] [address] Dr. Shayne RoldanCreatinine [Mass/Vol]1.02 mg/dLNormal0.55-1.02The Blair HospitalComment on above:Performed By: #### MG, RENAL, URIC #### [facility] [address] [address] [address] Shayne PeñaGFR-AF TUNISIAN>60Normal>=60The [facility] HospitalComment on above:Performed By: #### MG, RENAL, URIC #### [facility] [address] [place] [address] Dr. Shayne PeñaGFR-NON AF EPWGUXWH27 mL/min/1.35a9Mirudhzoon low>=60The [facility] HospitalComment on above:Performed By: #### MG, RENAL, URIC #### [facility] [address] [place] [address] Dr. Shayne RoldanGlucose [Mass/Vol]110 mg/dLCritically seta65-774Nvg [facility] HospitalComment on above:Performed By: #### MG, RENAL, URIC #### [facility] [address] [place] [address] Dr. Shayne RoldanPhosphate [Mass/Vol]2.3 mg/dLCritically low2.6-4.7The [facility] HospitalComment on above:Performed By: #### MG, RENAL, URIC #### [facility] [address] [place] [address] Dr. Shayne RoldanPotassium [Moles/Vol]3.2 mmol/LCritically low3.5-5.1The [facility] Centerment on above:Performed By: #### MG, RENAL, URIC #### [facility] [address] [place] [address] Dr. Shayne RoldanSodium [Moles/Vol]138 mmol/YCdmnmv035-231Cpg [facility] Comment on above:Performed By: #### MG, RENAL, URIC #### [facility] [address] [place] [address] Dr. Shayne RoldanUrea nitrogen [Mass/Vol]14.0 mg/dLNormal7.0-18.0The [facility] HospitalComment on above:Performed By: #### MG, RENAL, URIC #### [facility] [address] [place] [address] Dr. Shayne BarkerH INTACTon 63-40-5852MPE, Bjqrck18 pg/gNCwphex72-18Lni [facility] Centerment on above:Performed By: #### MG, RENAL, URIC #### [facility] [address] [place] [address] Dr. Shayne RoldanHEMOGRAM AND PLATELon 85-61-3325Cpyvqfqcsv (Bld) [Volume fraction]39.8 %Wsocbb94.0-48.0The [facility] HospitalComment on above:Performed By: #### MG, RENAL, URIC #### [facility] [address] [place] [address] Dr. Shayne RoldanHemoglobin (Bld) [Mass/Vol]13.4 g/sATimmjv66.0-16.0The [facility] HospitalComment on above:Performed By: #### MG, RENAL, URIC #### [facility] [address] [place] [address] Dr. Shayne Spears (RBC) [Entitic mass]30.5 xfLdwanm55.7-34.0The [facility] HospitalComment on above:Performed By: #### MG, RENAL, URIC #### [facility] [address] [place] [address] Dr. Shayne Spears (RBC) [Mass/Vol]33.7 g/gMMqvgkm39.9-35.2The [facility] HospitalComment on above:Performed By: #### MG, RENAL, URIC #### [facility] [address] [place] [address] Dr. Shayne Spears (RBC) [Entitic vol]90.5 cMCbvicn61.0-99.0The [facility] Centerment on above:Performed By: #### MG, RENAL, URIC #### [facility] [address] [place] [address] Dr. Shayne RoldanPLT299 103/nhHmdrxp001-207Twy [facility] HospitalComment on above: Performed By: #### MG, RENAL, URIC #### [facility] [address] [place] [address] Dr. Shayne RoldanRBC4.40 106/ulNormal4.20-5.40The [facility] HospitalComment on above:Performed By: #### MG, RENAL, URIC #### [facility] [address] [place] [address] Dr. Shayne RoldanWBC8.8 103/ulNormal4.0-11.0The [facility] HospitalComment on above: Performed By: #### MG, RENAL, URIC #### [facility] [address] [place] [address] Dr. Shayne RoldanMAGNESIUMon 31-63-1174Bkdlynamn [Mass/Vol]1.5 mg/dLCritically low 1.8-2.4The [facility] HospitalComment on above:Performed By: #### MG, RENAL, URIC #### [facility] [address] [place] [address] Dr. Shayne SernaAL FUNCTION PANELon 98-90-4852Ykwejdm [Mass/Vol]3.5 g/dLNormal 3.4-5.0The [facility] HospitalComment on above:Performed By: #### MG, RENAL, URIC #### [facility] [address] [place] [address] Dr. Shayne RoldanCalcium [Mass/Vol]8.4 mg/dLCritically low8.5-10.1The [facility] HospitalComment on above:Performed By: #### MG, RENAL, URIC #### [facility] [address] [place] [address] Dr. Shayne RoldanChloride [Moles/Vol]101 mmol/FSprusn89-216Dnt [facility] Comment on above:Performed By: #### MG, RENAL, URIC #### [facility] [address] [place] [address] Dr. Shayne RoldanCO2 [Moles/Vol]29.5 mmol/GMianit39.0-32.0The [facility] Comment on above:Performed By: #### MG, RENAL, URIC #### [facility] [address] [place] [address] Dr. Shayne RoldanCreatinine [Mass/Vol]1.04 mg/dLCritically high0.55-1.02The [facility] Centerment on above:Performed By: #### MG, RENAL, URIC #### [facility] [address] [place] [address] Dr. Shayne PeñaGFR-AF TUNISIAN>60Normal>=60The [facility] HospitalComment on above:Performed By: #### MG, RENAL, URIC #### [facility] [address] [place] [address] Dr. Shayne PeñaGFR-NON AF ZLLRHUTD17 mL/min/1.00t7Mlpngwlyzh low>=60The [facility] Centerment on above:Performed By: #### MG, RENAL, URIC #### [facility] [address] [place] [address] Dr. Shayne RoldanGlucose [Mass/Vol]92 mg/gGFpevxg89-195CetElyria Memorial Hospital Comment on above:Performed By: #### MG, RENAL, URIC #### [facility] [address] [place] [address] Dr. Shayne RoldanPhosphate [Mass/Vol]2.4 mg/dLCritically low2.6-4.7The [facility] HospitalComment on above:Performed By: #### MG, RENAL, URIC #### [facility] [address] [place] [address] Dr. Shayne RoldanPotassium [Moles/Vol]2.8 mmol/LCritically low3.5-5.1The [facility] Centerment on above:Performed By: #### MG, RENAL, URIC #### [facility] [address] [place] [address] Dr. Shayne RoldanSodium [Moles/Vol]137 mmol/BYlikza622-455Vfr [facility] Comment on above:Performed By: #### MG, RENAL, URIC #### [facility] [address] [place] [address] Dr. Shayne RoldanUrea nitrogen [Mass/Vol]10.0 mg/dLNormal7.0-18.0The [facility] HospitalComment on above:Performed By: #### MG, RENAL, URIC #### [facility] [address] [address] [address] Shayne Espinoza RANDOM W/MICROSCOPICon 32-70-7765EPOYRUEPYZPQZSvjzltnrXMNZ SEENElyria Memorial HospitalComment on above:Performed By: #### UAMIC #### [facility] [address] [address] [address] Shayne RoldanBilirubin Ql (U)NegativeNormalNEGATIVEEast [facility] on above:Performed By: #### UAMIC #### [facility] [address] [address] [address] Shayne RoldanCASTNONE SEENNormalNONE SEENElyria Memorial HospitalComment on above:Performed By: #### UAMIC #### [facility] [address] [place] [address] Dr. Shayne RoldanClarity (U)CLEARNormalCLEARElyria Memorial HospitalComment on above: Performed By: #### UAMIC #### [facility] [address] [place] [address] Dr. Shayne RoldanColor (U)LT. YELLOWNormalYTrinity Health System Twin City Medical CenterComment on above:Performed By: #### UAMIC #### [facility] [address] [place] [address] Dr. Shayne RoldanCrystals LM Nom (Urine sed)NONE SEENNormalNONE SEENElyria Memorial HospitalComment on above:Performed By: #### UAMIC #### [facility] [address] [address] [address] Bella ChangEpithelial cells LM Ql (Urine sed)FEWAbnormalNONE SEEN /RAREThe [facility] HospitalComment on above:Performed By: #### UAMIC #### [facility] [address] [place] [address] Dr. Shayne RoldanGlucose Ql (U)NegativeNormalNEGATIVEElyria Memorial HospitalComment on above:Performed By: #### UAMIC #### [facility] [address] [place] [address] Dr. Shayne RoldanHemoglobin Ql (U)NegativeNormalNEGATIVEElyria Memorial Hospital Comment on above:Performed By: #### UAMIC #### [facility] [address] [place] [address] Dr. Shayne Foster Ql (U)NegativeNormalNEGATIVEElyria Memorial HospitalComment on above:Performed By: #### UAMIC #### [facility] [address] [place] [address] Dr. Shayne RoldanLEUKOCYTESTRACEAbnormalNEGATIVEThe [facility] HospitalComment on above:Performed By: #### UAMIC #### [facility] [address] [place] [address] Dr. Shayne GrecoCOUSNONMir SEENNormalNONE SEENElyria Memorial HospitalComment on above:Performed By: #### UAMIC #### [facility] [address] [place] [address] Dr. Shayne Meyer Ql (U)NegativeNormalNEGATIVEElyria Memorial HospitalComment on above:Performed By: #### UAMIC #### [facility] [address] [place] [address] Dr. Shayne RoldanpH (U)6.0 [pH]Normal5-9Elyria Memorial HospitalComment on above: Performed By: #### UAMIC #### [facility] [address] [place] [address] Dr. Shayne RoldanRBCNELLEN SEENAbnormal0-2The [facility] HospitalComment on above: Performed By: #### UAMIC #### [facility] [address] [place] [address] Dr. Shayne RoldanSPEC GRAVITY<=1.585Vaoasfmg3.005-<=1.025[facility] Comment on above:Performed By: #### UAMIC #### [facility] [address] [place] [address] Dr. Shayne Espinoza PROTEINNegativeNormalNEGATIVE/ TRACEElyria Memorial Hospital Comment on above:Performed By: #### UAMIC #### [facility] [address] [place] [address] Dr. Yilan ChangUrobilinogen Qn (U)0.2 {Rogelio'U}/dLNormal0.2 - 1.0The [facility] HospitalComment on above:Performed By: #### UAMIC #### [facility] [address] [address] [address] Shayne RoldanWBC5-10AbnormalNONE SEENThe [facility] HospitalComment on above: Performed By: #### UAMIC #### [facility] [address] [place] [address] Dr. Shayne RoldanURIC ACID SERUMon 93-14-6550Tbrqx [Mass/Vol]6.5 mg/dLCritically high2.6-6.0The [facility] HospitalComment on above:Performed By: #### MG, RENAL, URIC #### [facility] [address] [place] [address] Dr. Shayne Wood T PROTEIN CREAT RATIOon 91-56-9720Cqblwkv (U) [Mass/Vol]4.8 mg/dLNormal<=12.0The [facility] HospitalComment on above:Performed By: #### URTPCR #### [facility] [address] [place] [address] Dr. Shayne Wheeler PROT CREAT RAT0.09[facility] CenterComment on above: Performed By: #### URTPCR #### [facility] [address] [place] [address] Dr. Shayne Wood CREAT52.65 mg/pHRguwsx76.00-300.00The [facility] Comment on above:Performed By: #### URTPCR #### [facility] [address] [place] [address] Dr. Shayne RoldanVITAMIN D 25 OHon 25-15-2957YDP D 25-OH38.9 ng/mLNormalElyria Memorial HospitalComascension providence [facility] on above:Performed By: #### MG, RENAL, URIC #### [facility] [address] [place] [address] Dr. Shayne Leslie D RANGESSEE BELOWCincinnati VA Medical CenterComment on above: Result Comment: <20 ng/mL Vit D deficient 20 - <30 ng/mL Vit D insufficient 30 - 100 ng/mL Vit D sufficient >100 ng/mL Potential ToxicityPerformed By: #### MG, RENAL, URIC #### [facility] [address] [place] [address] Dr. Shayne RoldanIMMUNOGLOBULINS IGA/IGM/IGG/IGE QUANTITAon 07-12-2022 Immunoglobulin A, Qn, Ikvxk917 mg/wZXiywht46-295Rxv [facility] on above:Result Comment: Performed at: CBPerformed By: #### MG, RENAL, URIC #### [facility] [address] [place] [address] Dr. Shayne RoldanImmunoglobulin E, Total32 IU/mLNormal6-495The [facility] Comment on above:Result Comment: Performed at: BNPerformed By: #### MG, RENAL, URIC #### [facility] [address] [place] [address] Dr. Shayne RoldanImmunoglobulin G, Qn, Gwqhn736 mg/sUVofeen962-2403Tog [facility] Centerment on above:Result Comment: Performed at: CBPerformed By: #### MG, RENAL, URIC #### [facility] [address] [place] [address] Dr. Shayne RoldanImmunoglobulin M, Qn, Serum75 mg/dYYzkxqa78-181Ldz [facility] on above:Result Comment: Performed at: CBPerformed By: #### MG, RENAL, URIC #### [facility] [address] [place] [address] Dr. Shayne Bridges AUTO DIFFon 22-36-3350MEFX #0.1 103/ulNormal0.0-0.1[facility] on above:Performed By: #### MG, RENAL, URIC #### [facility] [address] [place] [address] Dr. Shayne RoldanBasophils/100 WBC (Bld)0.7 %Normal0.2-2.0[facility] Comment on above:Performed By: #### MG, RENAL, URIC #### [facility] [address] [place] [address] Dr. Shayne Irizarry #0.4 103/ulNormal0.0-0.7The [facility] HospitalComment on above: Performed By: #### MG, RENAL, URIC #### [facility] [address] [place] [address] Dr. Shayne Peñaosinophils/100 WBC (Bld)4.4 %Normal0.9-7.0The [facility] Comment on above:Performed By: #### MG, RENAL, URIC #### [facility] [address] [place] [address] Dr. Shayne Peñarythrocyte distribution width (RBC) [Ratio]12.6 %Ypilyj43.0-15.0 The [facility] HospitalComment on above:Performed By: #### MG, RENAL, URIC #### [facility] [address] [place] [address] Dr. Shayne RoldanHematocrit (Bld) [Volume fraction]40.2 %Gsnjtw47.0-48.0The [facility] HospitalComment on above:Performed By: #### MG, RENAL, URIC #### [facility] [address] [place] [address] Dr. Shayne RoldanHemoglobin (Bld) [Mass/Vol]13.6 g/oFWixmgl45.0-16.0The [facility] HospitalComment on above:Performed By: #### MG, RENAL, URIC #### [facility] [address] [place] [address] Dr. Shayne Sy #0.07 10e3/ulCritically high0.00-0.03The [facility] Comment on above:Performed By: #### MG, RENAL, URIC #### [facility] [address] [place] [address] Dr. Shyane Sy %0.8 %Critically high0.0-0.5The [facility] HospitalComment on above:Performed By: #### MG, RENAL, URIC #### [facility] [address] [place] [address] Dr. Shayne Rojo #2.3 103/ulNormal1.2-3.8The [facility] HospitalComment on above:Performed By: #### MG, RENAL, URIC #### [facility] [address] [place] [address] Dr. Shayne Hanleyhocytes/100 WBC (Bld)24.7 %Ouoeuv24.5-60.0The [facility] HospitalComment on above:Performed By: #### MG, RENAL, URIC #### [facility] [address] [place] [address] Dr. Shayne Griffin DIFF REQNONormalThe [facility] HospitalComment on above: Performed By: #### MG, RENAL, URIC #### [facility] [address] [place] [address] Dr. Shayne Spears (RBC) [Entitic mass]30.7 kiMdrwxe08.7-34.0The [facility] HospitalComment on above:Performed By: #### MG, RENAL, URIC #### [facility] [address] [place] [address] Dr. Shayne Spears (RBC) [Mass/Vol]33.8 g/mGWhxmqu36.9-35.2The [facility] HospitalComment on above:Performed By: #### MG, RENAL, URIC #### [facility] [address] [place] [address] Dr. Shayne Spears (RBC) [Entitic vol]90.7 lTQzgoyy66.0-99.0The [facility] HospitalComment on above:Performed By: #### MG, RENAL, URIC #### [facility] [address] [place] [address] Dr. Shayne Germain #0.7 103/ulNormal0.3-0.8The [facility] HospitalComment on above:Performed By: #### MG, RENAL, URIC #### [facility] [address] [place] [address] Dr. Shayne Haocytes/100 WBC (Bld)7.7 %Normal1.7-12.0The [facility] Comment on above:Performed By: #### MG, RENAL, URIC #### [facility] [address] [place] [address] Dr. Shayne Brock #5.7 103/ulNormal1.4-6.5The [facility] HospitalComment on above:Performed By: #### MG, RENAL, URIC #### [facility] [address] [place] [address] Dr. Shayne Servinutrophils/100 WBC (Bld)61.7 %Sfmhkw57.0-75.0The [facility] HospitalComment on above:Performed By: #### MG, RENAL, URIC #### [facility] [address] [place] [address] Dr. Shayne Berry mean volume (Bld) [Entitic vol]8.8 fLCritically low 9.5-13.5The [facility] HospitalComment on above:Performed By: #### MG, RENAL, URIC #### [facility] [address] [place] [address] Dr. Shayne RoldanPLT279 103/viPwdwax275-374Mbu [facility] HospitalComment on above: Performed By: #### MG, RENAL, URIC #### [facility] [address] [place] [address] Dr. Shayne RoldanRBC4.43 106/ulNormal4.20-5.40The [facility] HospitalComment on above:Performed By: #### MG, RENAL, URIC #### [facility] [address] [place] [address] Dr. Shayne RoldanWBC9.1 103/ulNormal4.0-11.0The [facility] HospitalComment on above: Performed By: #### MG, RENAL, URIC #### [facility] [address] [place] [address] Dr. Shayne RoldanCovid-19 PCR ([facility])on 39-13-6145CUOI-CoV-2 (COVID-19) RNA KAYLEE+probe Ql (Unsp spec)Not detectedNormalNOT DETECTEDThe [facility] Comment on above:Result Comment: This test is not yet approved or cleared by the [place] FDA. When there are no FDA-approved or cleared tests available, and other criteria are met, FDA can make tests available under an emergency access mechanism called an Emergency Use Authorization (EUA). The EUA for this test is supported by the [place] of Health and Human Service's (HHS's) declaration [...] SARS-CoV-2.Performed By: #### MG, RENAL, URIC #### [facility] [address] [place] [address] Dr. Shayne RoldanXR CHEST 2 Von 52-77-6356JO CHEST 2 VEXAM: CHEST 2 VIEWS HISTORY: [...] Electronically authenticated by: NARDA LONDONO Date: 2022-06-08 19:58NoAshtabula County Medical CenterCovid-19 PCR ([facility]VDTBH)on 35-13-0364VWHP-CoV-2 (COVID-19) RNA KAYLEE+probe Ql (Unsp spec)Not detectedNormalNOT DETECTEDThe [facility] Comment on above:Result Comment: This test is not yet approved or cleared by the [place] FDA. When there are no FDA-approved or cleared tests available, and other criteria are met, FDA can make tests available under an emergency access mechanism called an Emergency Use Authorization (EUA). The EUA for this test is supported by the [place] of Health and Human Service's (HHS's) declaration [...] consistent with SARS-CoV-2.Performed By: #### CVDTBH #### [facility] [address] [address] [address] Shayne Casas AXIALon 15-50-2410JBYO [facility] Department of Radiology [address] [place] [id number] Patient Name: DIANA CHAMPION : 1955 [...] characteristics. Electronically signed: Luzma Marks. Transcribed by: [email or web address], User Resident: Electronically Signed by: LUZMA MARKS @ 03/02/2022 01:07 [facility]COLI[facility] 2 [facility] [id number] 2 [facility] Department of Radiology [address] [place] [id number] Patient Name: DIANA CHAMPION : 1955 [...] spine. Electronically signed: Hugo Lynn. Transcribed by: [email or web address], User Resident: Electronically Signed by: HUGO LYNN @ 02/26/2022 11:07 AMNormalThe [facility] CenterComment on above:Order Comment: Views (X-RAY, SCOLIOSIS): PA, Lateral evaluateCT LUMBAR SPINE W CONTRASTon [id number] LUMBAR SPINE W CONTRASTUnHolzer Hospital Department of Radiology [address] [place] [id number] Patient Name: DIANA CHAMPION : 1955 [...] L1-2. Electronically signed: Gaurang Hess. Transcribed by: [email or web address], User Resident: Electronically Signed by: GAURANG HESS @ 01/26/2022 08:58 AMNormalThe [facility] Medical CenterComment on above:Order Comment: , CT MYELOGRAM>PAPER WORK IN CHARTLUMBAR MYELOGRAMon [id number] MYELOGRAM [facility] Department of Radiology [address] [place] [address] Patient Name: DIANA CHAMPION : 1955 Sex: F Age: Race: White Pt. Location: 84 Patient Status: O Ordered Date: 01/09/2022 9:00:00 AM Completed Date: 01/24/2022 02:37 PM Requesting Provider: JOO LINN Attending Provider: JOO LINN Report Copy To: UNKNOWN, PHYSICIAN Signs & Symptoms: M54.16 Radiculopathy, lumbar region I10 History: [place] Is patient on thinners? 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 Consent was obtained. Timeout: [place] protocol timeout verification performed. PROCEDURE: Estimated blood [...] report. Electronically signed: Greg Mcmahan. Transcribed by: [email or web address], User Resident: DEBBIE JI Electronically Signed by: GREG MCMAHAN @ 01/24/2022 04:07 PM I personally read this/these film(s) with this residentGrand Lake Joint Township District Memorial HospitalComment on above:Order Comment: , CT MYELOGRAM> PAPER WORK SCANNED IN CHART , CT MYELOGRAM> PAPER WORK SCANNEDIN CHART , , , Ordering Provider - JOO LINN MD , HIP LEFT 1 OR 2 VWS WITH PELVIS on [id number] LEFT 1 OR 2 VWS WITH PELVISUnHolzer Hospital Department of Radiology [address] [place] [id number] Patient Name: DIANA CHAMPION : 1955 Sex: F Age: Race: White Pt. Location: Patient Status: D Ordered Date: 12/21/2021 10:45:00 AM Completed Date: 01/06/2022 01:24 PM Requesting Provider: JOO LINN Attending Provider: JOO LINN Report Copy To: Signs & Symptoms: Z96.642 Presence of left artificial hip joint I10 History: [place] Comments: Evaluate Exam: HIP LEFT 1 OR 2 VWS WITH PELVIS HIP LEFT 1 OR 2 VWS WITH PELVIS HISTORY: Hip replacement, follow-up. COMPARISON: None. IMPRESSION: 1. Redemonstrated left hip prosthesis without visible complication. 2. Advanced right hip arthritis without significant change with advanced joint space narrowing. Unchanged lumbosacral fusion hardware. Electronically signed: Joe Matthew. Transcribed by: [id number], User Resident: Electronically Signed by: JOE MATTHEW @ 01/09/2022 04:45 [facility] HospitalComment on above:Order Comment: Evaluate Vital Signs Date TimeVital SignValuePerforming MpekrfcwdTqirlgpq06-20-8661 08:50-0400Body opyahg332.56 cmBrittany Reese NURSE CHARGE RN-C Work Phone: [phone]-[facility]10-13-2025 08:50-0400 Body mass index (BMI) [Ratio]39.4 kg/o5Cmisaoun Reese NURSE CHARGE RN-C Work Phone: [phone]-[facility]10-13-2025 08:50-0400 Body onvjvrytwix83.1 [degF]Aida Reese NURSE CHARGE RN-C Work Phone: [facility]10-13-2025 08:50-0400 Body nmuhqx358.38 kgBrbenson Reese NURSE CHARGE RN-C Work Phone: 1([phone]-[facility]10-13-2025 08:50-0400 Diastolic blood ogchqdze71 mm[Hg]Aida Reese NURSE CHARGE RN-C Work Phone: 1(729)642-[address] [place], [place] 9330910-13-2025 08:50-0400 Heart rate82 /minBrittany Reese NURSE CHARGE RN-C Work Phone: 1(759)306-[address] [place], [place] 9330910-13-2025 08:50-0400 Inhaled oxygen flow rate3 L/minBrittany Reese NURSE CHARGE RN-C Work Phone: [phone])[address]10-13-2025 08:50-0400 Respiratory rate20 /minBrittany Reese NURSE CHARGE RN-C Work Phone: [phone])[address]10-13-2025 08:50-0400 SaO2% (BldA) [Mass fraction]92 %Aida Reese NURSE CHARGE RN-C Work Phone: 1([phone])42332 [address]10-13-2025 08:50-0400 Systolic blood numusqwe155 mm[Hg]Aida Reese NURSE CHARGE RN-C Work Phone: 1([phone] [place], [place] 9330909-29-2025 10:11-0400 Body ollroj533.56 cmBrelissakaushal Reese NURSE CHARGE RN-C Work Phone: 1([phone] [place], [place] 9330909-29-2025 10:11-0400 Body mass index (BMI) [Ratio]39.3 kg/j3Mqotpyru Reese NURSE CHARGE RN-C Work Phone: 1(297)729-[address] [place], [place] 9330909-29-2025 10:11-0400 Body nsztlqdemzy50.8 [degF]Aida Reese NURSE CHARGE RN-C Work Phone: 1([phone] [place], [place] 9330909-29-2025 10:11-0400 Body ztrorm274.87 kgBrelissakaushal Reese NURSE CHARGE RN-C Work Phone: [facility]09-29-2025 10:11-0400 Diastolic blood hqlfpanw89 mm[Hg]Aida Reese NURSE CHARGE RN-C Work Phone: [phone]-[facility]09-29-2025 10:11-0400 Heart rate93 /minBrittany Reese NURSE CHARGE RN-C Work Phone: 1([phone] [place], [place] 9330909-29-2025 10:11-0400 Inhaled oxygen flow rate3 L/minBrittany Reese NURSE CHARGE RN-C Work Phone: 1(520)71432 [address]09-29-2025 10:11-0400 Respiratory rate18 /minBrittany Reese NURSE CHARGE RN-C Work Phone: 1([phone])[address]32 [address]09-29-2025 10:11-0400 SaO2% (BldA) [Mass fraction]93 %Aida Reese NURSE CHARGE RN-C Work Phone: [phone])[address]09-29-2025 10:11-0400 Systolic blood apjzjpcs376 mm[Hg]Aida Reese NURSE CHARGE RN-C Work Phone: 1([phone])[address]32 [address]09-11-2025 09:08-0400 Body .56 cmBrittany Reese NURSE CHARGE RN-C Work Phone: [phone] [place], [place] 9330909-11-2025 09:08-0400 Body mass index (BMI) [Ratio]40.1 kg/m0Ebmnxhyi Reese NURSE CHARGE RN-C Work Phone: 1(613)413-[address] [place], [place] 9330909-11-2025 09:08-0400 Body aurpvohsvsp97.1 [degF]Aida Reese NURSE CHARGE RN-C Work Phone: 1([phone] [place], [place] 9330909-11-2025 09:08-0400 Body .25 kgBrittany Reese NURSE CHARGE RN-C Work Phone: 1(318)658-[address] [place], [place] 9330909-11-2025 09:08-0400 Diastolic blood pnraifxx99 mm[Hg]Aida Reese NURSE CHARGE RN-C Work Phone: [facility]09-11-2025 09:08-0400 Heart rate74 /minBrittany Reese NURSE CHARGE RN-C Work Phone: [facility]09-11-2025 09:08-0400 Inhaled oxygen flow rate3 L/minBrittany Reese NURSE CHARGE RN-C Work Phone: [facility]09-11-2025 09:08-0400 Respiratory rate24 /minBrittany Reese NURSE CHARGE RN-C Work Phone: [phone]-[facility]09-11-2025 09:08-0400 SaO2% (BldA) [Mass fraction]95 %Aida Reese NURSE CHARGE RN-C Work Phone: [facility]09-11-2025 09:08-0400 Systolic blood zsdkjiln646 mm[Hg]Aida Reese NURSE CHARGE RN-C Work Phone: [facility]07-14-2025 08:43-0400 Body mass index (BMI) [Ratio]40.58 kg/m2Kaylene Torreshholz NURSE CHARGE RN Work Phone: [facility] CenterFalxpvbusm07-94-4095 08:43-0400Body temperature 98.49 [degF]Kaylene Ferdinandholz NURSE CHARGE RN Work Phone: [facility] CenterXfoiheigml34-48-2826 08:43-0400Body irrcjm299.23 kgLisa Brianhholz NURSE CHARGE RN Work Phone: [facility] CenterYzgvwistsi78-96-9061 08:43-0400Diastolic blood livbafpf80 mm[Hg]Kaylene Aichholz NURSE CHARGE RN Work Phone: [facility] CenterBlwymkcskz42-99-5521 08:43-0400Heart rate74 /min Kaylene Aichholz NURSE CHARGE RN Work Phone: [facility] CenterVrwuoyfvwi06-95-5418 08:43-0400Respiratory rate22 /minLisa Ferdinandholz NURSE CHARGE RN Work Phone: [facility] CenterWugjifwjcl21-25-0577 08:43-0956VzX7% (BldA) [Mass fraction]94 %Kaylenemeng Streeterholz NURSE CHARGE RN Work Phone: [facility] CenterKbzpcninlr02-89-5981 08:43-0400Systolic blood mm[Hg]Kaylene Ferdinandholz NURSE CHARGE RN Work Phone: [facility] CenterNrnwhvjyah66-69-1157 11:03-0400Body mass index (BMI) [Ratio]41.2 kg/m2Lisa Ferdinandholz NURSE CHARGE RN Work Phone: [facility] CenterNcuiiavlqr72-93-2670 11:03-0400Body temperature 98.2 [degF]Kaylene Ferdinandholz NURSE CHARGE RN Work Phone: [facility] CenterBrjosleieh12-42-6016 11:03-0400Body ujdndq728.86 kgLisa Ferdinandholz NURSE CHARGE RN Work Phone: [facility] CenterArkbotudoz88-20-8826 11:03-0400Diastolic blood uihesehz52 mm[Hg]Kaylene Ferdinandholz NURSE CHARGE RN Work Phone: [facility] CenterMuqgkxjakz42-58-2411 11:03-0400Heart rate73 /min Kaylene Ferdinandholz NURSE CHARGE RN Work Phone: [facility] CenterCsupqnhosk28-43-2358 11:03-0400Respiratory rate22 /minLisa Brianhholz NURSE CHARGE RN Work Phone: [facility] CenterYyiilvtcnx15-78-1307 11:03-1539YwB4% (BldA) [Mass fraction]93 %Kaylene Ferdinandholz NURSE CHARGE RN Work Phone: [facility] CenterKktuslqbbb29-56-8620 11:03-0400Systolic blood bfipduor242 mm[Hg]Kaylene Brianhholz NURSE CHARGE RN Work Phone: [facility] CenterYrnlkuwehp13-87-9586 09:57-0400Body temperature 98.06 [degF]MAG BLOUNT [facility]05-19-2025 09:57-0400Diastolic blood zkjjqtni35 mm[Hg]MAG BLOUNT [facility]05-19-2025 09:57-0400Respiratory rate16 /minJENNSHAUNNA BLOUNT [facility]05-19-2025 09:57-0400Systolic blood mcdxxxoy032 mm[Hg]MAG BLOUNT [facility]04-14-2025 08:31-0400Body fiiefajuoir06.8 [degF]Kaylene López NURSE CHARGE RN Work Phone: [facility] CenterKvjlkcfxwe53-33-5622 08:31-0400Diastolic blood pigbfmcy08 mm[Hg]Kaylene Rene NURSE CHARGE RN Work Phone: [facility] CenterPxwvbtbskf48-22-7735 08:31-0400Heart rate85 /min Kaylene Rene NURSE CHARGE RN Work Phone: [facility] CenterMguvkivjtt16-07-5672 08:31-0400Respiratory rate24 /minLisa López NURSE CHARGE RN Work Phone: [facility] CenterEfgytdtatk69-39-5215 08:31-7099GsS7% (BldA) [Mass fraction]90 %Kaylene Rene NURSE CHARGE RN Work Phone: [place] [address]Ihkoprdcrg95-64-9048 08:31-0400Systolic blood uwkcydkd509 mm[Hg]Kaylene Rene NURSE CHARGE RN Work Phone: [facility] CenterYlqybnrmja05-34-5955 09:50-0400Body ipyhlqeqgzi45 [degF]Kaylenemeng López NURSE CHARGE RN Work Phone: [facility] CenterHzznfpxcqi18-57-2211 09:50-0400Diastolic blood apwkbgdt65 mm[Hg]Kaylene Owenz NURSE CHARGE RN Work Phone: [facility] CenterWcaxygcxub41-47-2759 09:50-0400Heart rate68 /min Kaylene Ferdinandholz NURSE CHARGE RN Work Phone: [facility] CenterSfkfqygfqf33-28-9661 09:50-0400Respiratory rate26 /minLisa Aichholz NURSE CHARGE RN Work Phone: [facility] CenterLbaqtttito59-39-7903 09:50-9962UjK4% (BldA) [Mass fraction]93 %Kaylene Ferdinandholz NURSE CHARGE RN Work Phone: [facility] CenterHllwvuxvcy89-81-9132 09:50-0400Systolic blood yojxhhwe253 mm[Hg]Kaylene Ferdinandholz NURSE CHARGE RN Work Phone: [facility] CenterQwboelidup15-62-6500 14:54-0500Body mass index (BMI) [Ratio]40.2 kg/m2Lisa Ferdinandholz NURSE CHARGE RN Work Phone: [facility] CenterRmsfkqiwku48-86-8860 14:54-0500Body temperature 99.61 [degF]Kaylene Ferdinandholz NURSE CHARGE RN Work Phone: [facility] CenterYhhhqhmrpy90-44-7076 14:54-0500Body ntoqyu546.23 kgLisa Ferdinandholz NURSE CHARGE RN Work Phone: [facility] CenterRmmaakszkc30-43-3136 14:54-0500Diastolic blood zyklkplv44 mm[Hg]Kaylene Ferdinandholz NURSE CHARGE RN Work Phone: [facility] CenterPkyaczfzrb99-97-1430 14:54-0500Heart rate78 /min Kaylene Brianhholz NURSE CHARGE RN Work Phone: [facility] CenterXuptfrkrpc81-56-8202 14:54-0500Respiratory rate26 /minLisa Aichholz NURSE CHARGE RN Work Phone: [facility] CenterSpmazdbxbv13-69-9463 14:54-8916HkU0% (BldA) [Mass fraction]91 %Kaylene Ferdinandholz NURSE CHARGE RN Work Phone: [facility] CenterJygexfsiea01-36-5072 14:54-0500Systolic blood upijjuuo009 mm[Hg]Kaylene López NURSE CHARGE RN Work Phone: [facility] CenterXybdtgkmda54-03-0636 13:08-0500Body .6 cmBrittany Reese NURSE CHARGE RN Work Phone: [facility] CenterOrxlodqbmh00-67-5359 13:08-0500Body mass index (BMI) [Ratio]40.51 kg/d0Wpocxjew Reese NURSE CHARGE RN Work Phone: [facility] CenterHiibmpgmak83-96-6792 13:08-0500Body temperature 97.9 [degF]Aida Reese NURSE CHARGE RN Work Phone: [facility] CenterApnowzrfzf30-84-6553 13:08-0500Body .05 kgBrittany Reese NURSE CHARGE RN Work Phone: [facility] CenterVboshvkray26-22-5972 13:08-0500Diastolic blood ejhikayr49 mm[Hg]Aida Reese NURSE CHARGE RN Work Phone: [facility] CenterPavxlqnwqu22-40-4823 13:08-0500Heart rate79 /min Aida Reese NURSE CHARGE RN Work Phone: [facility] CenterOdvrfqjcne53-66-3180 13:08-0500Respiratory rate20 /minBrelissaany Reese NURSE CHARGE RN Work Phone: [facility] CenterYhicguwodi59-20-7024 13:08-1533NqB4% (BldA) [Mass fraction]96 %Aida Reese NURSE CHARGE RN Work Phone: noMer[facility] JoplinCdihemzdqz19-62-8564 13:08-0500Systolic blood mm[Hg]Aida Reese NURSE CHARGE RN Work Phone: noMer[facility] JoplinFelmplogof16-66-6463 10:24-0500Body mass index (BMI) [Ratio]40.75 kg/n3Gthjkzmd Reese NURSE CHARGE RN Work Phone: [facility] CenterQefcnevuqv57-24-3088 10:24-0500Body temperature 98.71 [degF]Aida Hartpatrick NURSE CHARGE RN Work Phone: [facility] CenterBhobjyqxlz98-23-1548 10:24-0500Body qsbikd561.68 kgAida Hartpatrick NURSE CHARGE RN Work Phone: [facility] CenterMkguhhjttm88-65-7928 10:24-0500Diastolic blood eccrnije52 mm[Hg]Aida Hartpatrick NURSE CHARGE RN Work Phone: [facility] CenterTsxqaozbkc51-47-6665 10:24-0500Heart rate68 /min Aida Reese NURSE CHARGE RN Work Phone: [facility] CenterJwmidsbbkt42-07-9022 10:24-0500Respiratory rate18 /minAida Hartpatrick NURSE CHARGE RN Work Phone: [facility] CenterXwlijdvxkf68-26-2808 10:24-4045JlK7% (BldA) [Mass fraction]92 %Aida Hartpatrick NURSE CHARGE RN Work Phone: [facility] CenterWvpvbjsmnv41-15-0430 10:24-0500Systolic blood ahbjxlme101 mm[Hg]Aida Hartpatrick NURSE CHARGE RN Work Phone: [facility] CenterGzkfzsflhb11-22-2819 14:29-0500Blood Pressure LocationJENNIFER JOSE ALEJANDRO [facility]12-10-2024 14:29-0500Diastolic blood hheiuksd83 mm[Hg]MAG JOSE ALEJANDRO [facility]12-10-2024 14:29-0500Heart rate64 /minJENNIFER JOSE ALEJANDRO [facility]12-10-2024 14:29-0500Respiratory rate20 /minJENNIFER JOSE ALEJANDRO [facility]12-10-2024 14:29-0500Systolic blood mm[Hg]MAG BLOUNT [facility]12-02-2024 14:22-0500Body gqgjla102.6 cmBrittany Reese NURSE CHARGE RN Work Phone: [facility] CenterApndtvmcwh73-97-7064 14:22-0500Body mass index (BMI) [Ratio]40.85 kg/z9Drilrqej Reese NURSE CHARGE RN Work Phone: [facility] CenterQxecwokfto26-99-4348 14:22-0500Body vjqrup562.96 kgBrittany Reese NURSE CHARGE RN Work Phone: [facility] CenterEtpmetjcwf59-31-4231 14:22-0500Diastolic blood xmlotciz13 mm[Hg]Aida Reese NURSE CHARGE RN Work Phone: [facility] CenterToxcbyzkcc46-14-1256 14:22-0500Heart rate64 /min Aida Reese NURSE CHARGE RN Work Phone: [facility] CenterBhzqwgpmnq68-80-9854 14:22-0500Respiratory rate18 /minBrittany Reese NURSE CHARGE RN Work Phone: [facility] CenterWcpuucuohf57-21-1604 14:22-5918LuX9% (BldA) [Mass fraction]93 %Aida Reese NURSE CHARGE RN Work Phone: [facility] CenterLmmwgspyrs23-40-1478 14:22-0500Systolic blood cnszerzu807 mm[Hg]Aida Reese NURSE CHARGE RN Work Phone: [facility] CenterIjgtkiqggr69-97-1684 12:53-0400Body masnio073.56 cmBrittany Reese NURSE CHARGE RN-C Work Phone: [facility]10-31-2024 12:53-0400 Body vahzhc509.32 kgBrittany Reese NURSE CHARGE RN-C Work Phone: [facility]10-14-2024 11:41-0400 Body mass index (BMI) [Ratio]40.34 kg/q8Widhjnku Reese NURSE CHARGE RN Work Phone: [facility] CenterHbhiulnoeb52-71-3904 11:41-0400Body temperature 97.59 [degF]Aida Reese NURSE CHARGE RN Work Phone: [facility] CenterYqdzckzbmh97-93-3459 11:41-0400Body lvjcyz095.59 kgBrittany Reese NURSE CHARGE RN Work Phone: [facility] CenterEshssvetvg18-53-8731 11:41-0400Diastolic blood whyqppyf01 mm[Hg]Aida Reese NURSE CHARGE RN Work Phone: [facility] CenterToozfhvdbe42-17-6887 11:41-0400Heart rate57 /min Aida Reese NURSE CHARGE RN Work Phone: [facility] CenterWxktfyumcl02-52-8329 11:41-0412XnB4% (BldA) [Mass fraction]90 %Aida Reese NURSE CHARGE RN Work Phone: [facility] CenterTstavwczbu31-84-6462 11:41-0400Systolic blood ltvzjumu344 mm[Hg]Aida Reese NURSE CHARGE RN Work Phone: [facility] CenterLqzburbswc41-98-8592 08:25-0400Body aryvhr446.6 cmBrelissaany Reese NURSE CHARGE RN Work Phone: [facility] CenterWbvkbdzefl00-09-3156 08:25-0400Body mass index (BMI) [Ratio]41.02 kg/f0Ddfwrczv Reese NURSE CHARGE RN Work Phone: [facility] CenterRawwerkedb24-75-9987 08:25-0400Body temperature 98.1 [degF]Aida Reese NURSE CHARGE RN Work Phone: [facility] CenterVaqfnsafoo97-61-4906 08:25-0400Body iljpwy692.41 kgBrittany Reese NURSE CHARGE RN Work Phone: noMer[facility] JoplinLfszsfguuy36-88-6577 08:25-0400Diastolic blood kiaiepes40 mm[Hg]Aida Hartpatrick NURSE CHARGE RN Work Phone: noMer[facility] JoplinYhvakeawan78-84-7570 08:25-0400Heart rate83 /min Aida Hartpatrick NURSE CHARGE RN Work Phone: [facility] HealthcareComment on above:94% T872-60-0123 08:25-0400Systolic blood nlwgduod681 mm[Hg]Aida Reese NURSE CHARGE RN Work Phone: [facility] CenterOijzceyjji31-79-3772 10:30-0400Body .1 cmSteven Roshon Work Phone: 1(552)[address] [place], [place] 5779005-09-2024 10:30-0400 Body mass index (BMI) [Ratio]39 kg/i3Cpvvhz Roshon Work Phone: 1(715)[address] [place], [place] 5779005-09-2024 10:30-0400 Body ugfwwmebdxg19.4 [degF]Steph Roshon Work Phone: 1(707)[address] [place], [place] 5779005-09-2024 10:30-0400 Body dsckje580.36 kgSteven Roshon Work Phone: 1(414)[address] [place], [place] 5779005-09-2024 10:30-0400 Diastolic blood jweseavw18 mm[Hg]Steph Roshon Work Phone: 1(197)[address] [place], [place] 5779005-09-2024 10:30-0400 Heart rate77 /minSteven Roshon Work Phone: 1(823)[address] [place], [place] 5779005-09-2024 10:30-0400 Inhaled oxygen flow rate3 L/minSteven Roshon Work Phone: 1(566)[address]05-09-2024 10:30-0400 Respiratory rate20 /minSteven Roshon Work Phone: [facility]05-09-2024 10:30-0400 SaO2% (BldA) [Mass fraction]92 %Steph Collier Work Phone: [facility]05-09-2024 10:30-0400 Systolic blood ebpneycr769 mm[Hg]Steph Collier Work Phone: [facility]10-12-2023 09:20-0400 Body .1 cmAbdul Joana Other [employer] Other 10-12-2023 09:20-0400Body mass index (BMI) [Ratio]38.1 kg/n0Iwzjg Joana Other [employer] Other 10-12-2023 09:20-0400Body idyfyqfuokt24.8 [degF]Herberth Joana Other [employer] Other 10-12-2023 09:20-0400Body sglkau244.87 kgAbdul Joana Other [employer] Other 10-12-2023 09:20-0400Diastolic blood iubnxkkn50 mm[Hg] Herberth Joana Other [employer] Other 10-12-2023 09:20-0400Respiratory rate18 /minAbdul Joana Other [employer] Other 10-12-2023 09:20-3221YnL8% (BldA) [Mass fraction]94 % Herberth Joana Other [employer] Other 10-12-2023 09:20-0400Systolic blood rkiojtbs166 mm[Hg] Herberth Joana Other [employer] Other 04-27-2023 10:00-0400Body nndozr413.1 cmAbdul Joana Other [employer] efw[employer] Other 04-27-2023 10:00-0400Body mass index (BMI) [Ratio] 37.29 kg/m1Gggfm Joana Other [employer] Other 04-27-2023 10:00-0400Body wfvqlhedzeu23.9 [degF]Herberth Joana Other [employer] Other 04-27-2023 10:00-0400Body olgetz607.65 kgAbdul Joana Other [employer] Other 04-27-2023 10:00-0400Diastolic blood lyaxsrbc69 mm[Hg] Herberth Joana Other [employer] Other 04-27-2023 10:00-0400Respiratory rate20 /minAbdul Joana Other [employer] Other 04-27-2023 10:00-7516WgK2% (BldA) [Mass fraction]96 % Herberth Joana Other [employer] Other 04-27-2023 10:00-0400Systolic blood dzcdqafv183 mm[Hg] Herberth Joana Other [employer] Other 02-02-2023 09:30-0500Diastolic blood yctrukxi61 mm[Hg] MD Shaikh Ohara Work Phone: [facility]02-02-2023 09:30-0500 Heart rate55 /minMD Shaikh Pérezmick Work Phone: 1(159)423-[address] [place], [place] 9330902-02-2023 09:30-0500 Respiratory rate16 /min Messer Lev Work Phone: 1(546)617-[address] [place], [place] 9330902-02-2023 09:30-0500 SaO2% (BldA) [Mass fraction]96 %MD Shaikh Ohara Work Phone: 1(328)370-[address] [place], [place] 9330902-02-2023 09:30-0500 Systolic blood mm[Hg]MD Shaikh Ohara Work Phone: 1(475)[address]02-02-2023 06:54-0500 Body acajdf781.56 cm Shaikh Lev Work Phone: 1(410)653-[address] [place], [place] 9330902-02-2023 06:54-0500 Body .2 [degF]MD Shaikh Ohara Work Phone: 1(184)106-[address] [place], [place] 9330902-02-2023 06:54-0500 Body gkczno806.32 kg Shaikh Lev Work Phone: 1(404)811-[address] [place], [place] 9330910-04-2022 11:00-0400 Body ttmvdi704.1 cmAbdul Joana Other [facility] Other 10-04-2022 11:00-0400Body mass index (BMI) [Ratio] 37.87 kg/m0Gmcwd Joana Other [place] [employer] Other 10-04-2022 11:00-0400Body penaaxmqvdw96.2 [degF]Herberth Joana Other [place] [employer] Other 10-04-2022 11:00-0400Body jxwunm766.24 kgAbdul Joana Other [employer] Other 10-04-2022 11:00-0400Diastolic blood zmkskpag79 mm[Hg] Herberth Joana Other [employer] Other 10-04-2022 11:00-0400Respiratory rate20 /minAbdul Joana Other [employer] Other 10-04-2022 11:00-3268XkX2% (BldA) [Mass fraction]95 % Herberth Joana Other [facility] [employer] Other 10-04-2022 11:00-0400Systolic blood yoebmymx930 mm[Hg] Herberth Joana Other [employer] Other 01-12-2022 10:40-0500Body elbgbq772.1 cmAbdul Joana Other [employer] Other 01-12-2022 10:40-0500Body mass index (BMI) [Ratio] 37.97 kg/y6Joxtp Joana Other [employer] Other 01-12-2022 10:40-0500Body mubpnrbfxdc87.8 [degF]Herberth Joana Other [employer] Other 01-12-2022 10:40-0500Body .51 kgAbdul Joana Other [employer] Other 01-12-2022 10:40-0500Diastolic blood mxaspiag39 mm[Hg] Herberth Joana Other [employer] Other 01-12-2022 10:40-0500Respiratory rate18 /minAbdul Joana Other [facility] Other 01-12-2022 10:40-2153SfZ1% (BldA) [Mass fraction]94 % Herberth Joana Other [employer] Other 01-12-2022 10:40-0500Systolic blood tcwfxira279 mm[Hg] Herberth Joana Other [employer] Other 10-25-2021 13:15-0400Body .1 cmAmber Ginty Other [facility] Other 10-25-2021 13:15-0400Body mass index (BMI) [Ratio] 36.61 kg/n5Pbmiq Ginty Other [facility] Other 10-25-2021 13:15-0400Body .7 [degF]Rena Ginty Other [facility] Other 10-25-2021 13:15-0400Body dfanmd02.79 kgAmber Ginty Other [employer] Other 10-25-2021 13:15-1941TaD9% (BldA) [Mass fraction]90 % Rena Ginty Other [facility] Other Encounters Encounter DateEncounter TypeCare ProviderFacilityStart: 70-80-2000gxkzqirutg Amalia TannaFacility:EU BellevueStart: 08-18-2025 End: 55-45-1628nhjtsgjszaBlyxmdbd N Reese NURSE CHARGE RN-C Work Phone: [facility] Work Phone: Start: 08-18-2025 End: 63-97-0876Yqshnlt encounter procedureLisa Paolo López NURSE CHARGE RN-C-[facility] Work Phone: Start: 08-04-2025 End: 39-09-0530Ifflblwe Result EncounterLisa Rene NURSE CHARGE RN Work Phone: noms External Department UnsolicitedStart: 08-04-2025 End: 15-72-1871Spnpmyga Result EncounterLisa Rene NURSE CHARGE RN Work Phone: noms External Department UnsolicitedStart: 08-04-2025 End: 75-75-5438cejmnvtlzpEgrlncja N Mary Ann NURSE CHARGE RN-C Work Phone: [facility] Work Phone: Start: 08-04-2025 End: 23-04-3418Azlmwse encounter procedureLisa Paolo López NURSE CHARGE RN-C-[facility] Work Phone: Start: 07-22-2025 End: 42-35-6805tlqtaiwaizThiyal TannaFacility:EU BellevueStart: 07-22-2025 End: 03-59-0115Gqhrmpc encounter procedureLakhadijah Alonsoa [facility] [place] start: 80-83-2058Mwd-patient / Non-visitLisa Paolo López NURSE CHARGE RN-C-[facility] Work Phone: Start: 07-17-2025 End: 12-30-4944xhamdzciwoLigcrzyu N Mary Ann NURSE CHARGE RN-C Work Phone: [facility] Work Phone: Start: 07-17-2025 End: 49-22-2294Qsmpkjt encounter Lauren López NURSE CHARGE RN-C-[facility] Work Phone: Start: 59-19-1571Erihxss encounter procedureAida Reese NURSE CHARGE RN-C [facility] 07-16-2025 End: 43-39-3748oljutodekfGYQGN A PETITTINodajuan AvailableStart: 07-16-2025 End: 73-04-0305Olblyb outpatient visit 15 minutesEmalex Lazo MD Work Phone: noms [facility] DermatologyComment on above:Seborrheic keratosis (Primary Dx); Lentigines; History of SCC (squamous cell carcinoma) of skinStart: 07-16-2025 End: 14-29-9683Iwvtgg flowsheetJesscia Lazo MD Work Phone: noms [facility]atologyStart: 07-16-2025 End: 71-17-7612Pyydgw flowsheetJessica Lazo MD Work Phone: noms [facility]ermatologyStart: 95-05-6296Kvk-patient / Non-visitSraymundo Dickinson DO-[facility] Work Phone: Start: 07-08-2025 End: 36-79-4773yhyaanfsdfWvpifq TannaFacility:EU BellevueStart: 07-08-2025 End: 97-02-6109Zxefwkp encounter procedureAmalia Stephens [facility] [place] start: 06-18-2025 End: 18-48-4311XzczmcPsgp Aichholz NP Work Phone: noms [facility] FMComment on above:Moderate episode of recurrent major depressive disorder (HCC)Start: 06-11-2025 End: 85-52-3869wgirfdtpmiBrzgta TannaFacility:EU BellevueStart: 06-11-2025 End: 10-22-6750Pnqtqfp encounter procedureAmalia Stephens [facility] [place] start: 06-04-2025 End: 22-80-0338PshrtlXuhi Aichholz NURSE CHARGE RN Work Phone: noMS CWM FMComment on above:Skin pustuleStart: 05-19-2025 End: 80-78-5961Xjzbqa flowsheetLisa Aichholz NURSE CHARGE RN Work Phone: noms CWM FMStart: 05-19-2025 End: 20-85-1852Kxfuzh flowsheetLisa Aichholz NURSE CHARGE RN Work Phone: noms CWM FMStart: 05-19-2025 End: 12-56-3547Ayxwwwaov encounterLisa Aichholz NURSE CHARGE RN Work Phone: noms CWM FMStart: 05-19-2025 End: 57-24-0407Bpbgcv outpatient visit 25 minutesLisa Brianhholz NURSE CHARGE RN Work Phone: noMS CWM FMComment on above:Moderate episode of recurrent major depressive disorder (HCC) (Primary Dx); Morbid (severe) obesity due to excess calories (CMS-HCC); Candidiasis of breast; Skin pustule; RLS (restless legs syndrome)Start: 05-19-2025 End: 90-49-3500xrbqhabhrpWEAV AICHHOLZNot AvailableStart: 05-12-2025 End: 18-21-9450RpsledZrmj Aichholz NURSE CHARGE RN Work Phone: noms CWM FMComment on above:Chronic heart failure with preserved ejection fraction (HCC) (Primary Dx); Edema of both lower extremitiesStart: 05-12-2025 End: 27-74-1890nvbhlquxzqAdqrkgl Vytautas Alicia DRAPERFacility:PM [place] Start: 04-30-2025 End: 83-22-5292Chrbabtor Result EncounterGeneric External Data ProviderNOMS External Department UnsolicitedStart: 04-30-2025 End: 93-51-0523Jwgflxgnx Result EncounterGeneric External Data ProviderNOMS External Department UnsolicitedStart: 04-29-2025 End: 94-62-5918InabmzGooq Brianhholz NURSE CHARGE RN Work Phone: NOMS CWM FMComment on above:Restless leg syndrome Start: 04-27-2025 End: 96-33-0725AdjuojUvwx Aichholz NURSE CHARGE RN Work Phone: NOMS CWM FMComment on above:Chronic bilateral low back pain without sciaticaStart: 04-23-2025 End: 94-68-0801SzwtnnWtms Aichholz NURSE CHARGE RN Work Phone: noms CWM FMComment on above:Moderate episode of recurrent major depressive disorder (HCC) (Primary Dx)Start: 04-09-2025 End: 39-23-3744Goljts flowsheetLisa Aichholz NURSE CHARGE RN Work Phone: NOMS CWM FMStart: 04-09-2025 End: 60-76-9038Orymek flowsheetLisa Aichholz NURSE CHARGE RN Work Phone: NOMS CWM FMStart: 04-09-2025 End: 62-07-0335Ocnhnq outpatient visit 25 minutesLisa Brianhsuryz NURSE CHARGE RN Work Phone: NOMS CWM FMComment on above:Moderate episode of recurrent major depressive disorder (CMS/HCC) (Primary Dx); Pulmonary emphysema, unspecified emphysema type (CMS/HCC); Chronic respiratory failure with hypoxia (CMS/HCC); Morbid (severe) obesity due to excess calories (CMS/HCC); Restless leg syndromeStart: 04-09-2025 End: 42-94-1508kjldhensuuTQMI AICHHOLZNot AvailableStart: 03-24-2025 End: 49-89-9136lzieafdidpJKDQYWDX E PERRYFacility:EU BellevueStart: 03-24-2025 End: 32-52-4275Ihtgabu encounter procedureJEADAMARIS BLOUNT [facility] [place] start: 03-10-2025 End: 39-36-0638Ajluptedg Result EncounterGeneric External Data ProviderNOMS External Department UnsolicitedStart: 03-10-2025 End: 79-94-7343Nbsjpdwbt Result EncounterGeneric External Data ProviderNOMS External Department UnsolicitedStart: 03-03-2025 End: 99-46-2234Jgnufycjk Result EncounterLisa Brianhholz NURSE CHARGE RN Work Phone: noms External Department UnsolicitedStart: 03-03-2025 End: 06-85-0509Ffoojjsgt Result EncounterLisa Brianhholz NURSE CHARGE RN Work Phone: noms External Department UnsolicitedStart: 02-26-2025 End: 44-30-0943OuejsxObba Aichholz NURSE CHARGE RN Work Phone: noms CWM FMComment on above:Gastroesophageal reflux disease without esophagitisStart: 02-17-2025 End: 18-80-4320Hmhpox flowsheetLisa Aichholz NURSE CHARGE RN Work Phone: noms CWM FMStart: 02-17-2025 End: 69-90-2050Ibugwr flowsheetLisa Aichholz NURSE CHARGE RN Work Phone: noms CWM FMStart: 02-17-2025 End: 47-03-7101Mpcdkv outpatient visit 25 minutesLisa Aichholz NURSE CHARGE RN Work Phone: noms CWM FMComment on above:Edema of both lower extremities (Primary Dx); Spinal stenosis, lumbar region without neurogenic claudication; Chronic heart failure with preserved ejection fraction (CMS/HCC); Chronic respiratory failure with hypoxia (CMS/HCC); Severe persistent asthma, uncomplicated (CMS/HCC); Gastroesophageal reflux disease, unspecified whether esophagitis present; Morbid (severe) obesity due to excess calories (CMS/HCC); RLS (restless legs syndrome); CandidiasisStart: 02-17-2025 End: 21-72-8092seojuhfcusQAKO BRIANHHOLZNot AvailableStart: 01-23-2025 End: 90-86-8398pjrjdinodjVJBCHocking Valley Community Hospitaltart: 01-16-2025 End: 59-17-9707Cgmely outpatient visit 25 minutesKaylene López NURSE CHARGE RN Work Phone: noms CWM FMComment on above:Pneumonia [...] recurrent major depressive disorder (CMS/HCC)Start: 01-16-2025 End: 02-03-5407kjwtcdbprwTZXR AICHHOLZNot AvailableStart: 01-15-2025 End: 03-65-3086GnikjyVyfq Aichholz NURSE CHARGE RN Work Phone: noms CWM FMComment on above:Pneumonia due to infectious organism, unspecified laterality, unspecified part of lung (Primary Dx)Start: 01-02-2025 End: 00-99-3131Hhdzic outpatient visit 25 minutesKaylene López NURSE CHARGE RN Work Phone: noms CWM FMComment on above:Flu-like symptoms (Primary Dx); Morbid (severe) obesity due to excess calories (CMS/HCC); Body mass index (BMI) 40.0-44.9, adult (CMS/HCC); Pulmonary emphysema, unspecified emphysema type (CMS/HCC); Chronic respiratory failure with hypoxia (CMS/HCC); Essential hypertension (CMS/HCC)Start: 01-02-2025 End: 78-37-2948neuzwxjhkeNOWZ AICHHOLZNot AvailableStart: 01-02-2025 End: 57-04-5848Idvemr Jose López NURSE CHARGE RN Work Phone: noms CWM FMStart: 01-02-2025 End: 54-13-3453Kfmxxq Jose López NURSE CHARGE RN Work Phone: noms CWM FMStart: 01-02-2025 End: 74-71-3261Mnfpmsgep Result EncounterGeneric External Data ProviderNOMS External Department UnsolicitedStart: 12-17-2024 End: 25-42-7886Ltskcc outpatient visit 15 minutesJessica Lazo MD Work Phone: noms SWS DERMComment on above:Seborrheic keratosis (Primary Dx); History of SCC (squamous cell carcinoma) of skin; LentiginesStart: 12-17-2024 End: 84-16-9448fatxmxvaxkVEDTR A PETITTINot AvailableStart: 12-17-2024 End: 51-27-3081Xnaxun Clementina KING Work Phone: noms [facility]ICSStart: 12-17-2024 End: 65-55-5863Ezjeig Clementina KING Work Phone: noms [facility]OPAEDICSStart: 12-17-2024 End: 03-43-4076swtamnwgvqORLNUAV J MEYERNot AvailableStart: 12-17-2024 End: 62-21-0431Uecnro outpatient visit 25 minutesMafarrah KING Work Phone: noms FB ORTHOPAEDICSComment on above:Acute pain of right knee (Primary Dx); History of total right knee replacement; Right hip pain; Arthritis of right hipStart: 12-15-2024 End: 63-76-2702DonjodEjsmepzuStephen Reese NURSE CHARGE RN Work Phone: noms CWM FMComment on above:Moderate episode of recurrent major depressive disorder (CMS/HCC)Start: 12-13-2024 End: 00-83-9275Rgizegmichele Lazo MD Work Phone: noms SWS DERMStart: 12-13-2024 End: 50-06-0644Hkaobj flowsheetEmalex Lazo MD Work Phone: noms SWS DERMStart: 12-13-2024 End: 69-85-3652Lzorqj outpatient visit 10 minutesEmalex Lazo MD Work Phone: noms SWS DERMComment on above:Nevus lipomatosus cutaneus superficialis (Primary Dx); Squamous cell carcinoma of skin of chestStart: 12-13-2024 End: 09-66-9381oxpljftoboYVVHQ Meng PETITTINot AvailableStart: 12-05-2024 End: 75-32-4591CwewikOyqxyofq Reese NURSE CHARGE RN Work Phone: noms CWM FMComment on above:Restless leg syndrome Start: 11-30-2024 End: 65-27-0748YlwflhKibwzfeo Reese NURSE CHARGE RN Work Phone: NOLY CWM FMComment on above:Gastroesophageal reflux disease without esophagitisStart: 11-28-2024 End: 35-72-4083Lgtaug flowsheetBrittany Reese NURSE CHARGE RN Work Phone: NOIW CWM FMStart: 11-28-2024 End: 08-23-3656Hsqnwv flowsheetBrittany Reese NURSE CHARGE RN Work Phone: noms CWM FMStart: 11-28-2024 End: 05-88-8105mchcvoozzaYHESBEHD FITZPATRICKNot AvailableStart: 11-28-2024 End: 66-81-3032Zybvkohyxlsb care manage srvc 14 day dischargeBrittany Reese NURSE CHARGE RN Work Phone: NOMV CWM FMComment on above:Pulmonary emphysema, unspecified emphysema type (CMS/HCC) (Primary Dx)Start: 11-12-2024 End: 89-79-5978Kstdtw flowsheetBrittany Reese NURSE CHARGE RN Work Phone: NOMS CWM FMStart: 11-12-2024 End: 97-91-2438Onwvho flowsheetAida Reese NURSE CHARGE RN Work Phone: noms CWM FMStart: 11-12-2024 End: 70-74-8177Uhhipc outpatient visit 15 minutesBrelissakaushal Reese NURSE CHARGE RN Work Phone: noms CWM FMComment on above:Chronic obstructive pulmonary disease with acute lower respiratory infection (CMS/HCC) (Primary Dx); Primary HSV infection of mouthStart: 11-12-2024 End: 76-86-5555xgxlhlbsdfJXJKMFUX FITZPATRICKNot AvailableStart: 10-26-2024 End: 14-09-3527WgxlkzBkypwhwx Reese NURSE CHARGE RN Work Phone: noms CWM FMComment on above:Moderate episode of recurrent major depressive disorder (CMS/HCC); Restless leg syndromeStart: 10-17-2024 End: 52-81-2778srrrhvmgwiXFDZNGN [facility] Start: 10-15-2024 End: 09-20-1747cobvereplwJDAZYPYH E PERRYFacility:FTMCStart: 10-15-2024 End: 31-50-3065Rpp Drop offJENNIFER E JOSE ALEJANDRO [facility] Start: 10-15-2024 End: 13-08-2746IazvxsAkufajwu Reese NURSE CHARGE RN Work Phone: noms CWM FMComment on above:Moderate episode of recurrent major depressive disorder (CMS/HCC)Start: 10-15-2024 End: 04-17-4258qrsmfyngimZVSKUXVQ E PERRYFacility:EU BellevueStart: 10-15-2024 End: 69-21-2679Tnxcdex encounter procedureJENNIFER E JOSE ALEJANDRO [facility] [place] start: 10-12-2024 End: 27-67-7291AkgszmQdiqguxx Reese NURSE CHARGE RN Work Phone: noms CWM FMComment on above:Urge incontinenceStart: 10-11-2024 End: 60-25-2595Gxrwjd flowsheetJayna Canas PA Work Phone: noms SWS DERMStart: 10-11-2024 End: 90-51-9204Vftcch flowsheetJayna Mcneillb[facility]ist [facility] PA Work Phone: NOZL SWS DERMStart: 10-11-2024 End: 51-18-9565Tocenfy encounter procedureJayna Mcneillbaptist medical center [facility] PA Work Phone: noms SWS DERMComment on above:Neoplasm of unspecified behavior of bone, soft tissue, and skin (Primary Dx)Start: 10-11-2024 End: 15-76-2478rtnlpnuemhGGXCH NORTHEIMNot AvailableStart: 78-11-7000lnrerocjue MAG PERRYFacility:EU [place]walkStart: 10-07-2024 End: 89-37-5895Lhibyx outpatient visit 15 minutesBrbenson Hartpatrick NURSE CHARGE RN Work Phone: noms CWM FMComment on above:Urge incontinence (Primary Dx); Morbid obesity with BMI of 40.0-44.9, adult (CMS/HCC); 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; Stage 3a chronic kidney disease (HCC) (CMS/HCC); Chronic respiratory failure with hypoxia (CMS/HCC)Start: 10-07-2024 End: 21-17-8073jldqbbzimxHKGONTJU FITZPATRICKNot AvailableStart: 10-07-2024 End: 52-63-9557Icmuzq flowsheetBrittany Reese NURSE CHARGE RN Work Phone: NOMS CWM FMStart: 10-07-2024 End: 56-42-1370Wsqreg flowsheetBrittany Reese NURSE CHARGE RN Work Phone: noms CWM FMStart: 09-25-2024 End: 41-88-1049IkfpvkPdhupcqa Reese NURSE CHARGE RN Work Phone: noms CWM FMComment on above:Restless leg syndrome Start: 09-12-2024 End: 76-08-6562ffkazlswruNmpykjzi N Reese NURSE CHARGE RN-C Work Phone: [facility] Work Phone: Start: 09-12-2024 End: 35-48-8739Aphxmspq ReferredAida Reese NURSE CHARGE RN-C Work Phone: [facility]Start: 09-10-2024 End: 52-91-6023Oiuuhs OnlyBrbenson Reese NURSE CHARGE RN Work Phone: noms CWM FMComment on above:Vaginal guero (Primary Dx)Start: 09-05-2024 End: 24-61-7557Nuqwzhkb ReferredAida Hartpatrick NURSE CHARGE RN-C Work Phone: [facility] Kmu-Hqc-Tahjthbk Testing Work Phone: Start: 09-05-2024 End: 91-53-8928Oannczs encounter procedureNP-C Aida Vidaltrick Work Phone: [facility] Era-Njj-Biievyok Testing Work Phone: Start: 09-05-2024 End: 79-45-8542hunkwjruzzZD-C Aida Tenorio Reese Work Phone: [facility] Work Phone: Start: 09-03-2024 End: 02-86-3298FpxatrDuthJuan SERRANO CWM FMComment on above:Gastroesophageal reflux disease without esophagitisStart: 08-19-2024 End: 19-94-5697Cuadzj flowsheetAida Reese NURSE CHARGE RN Work Phone: noms CWM FMStart: 08-19-2024 End: 44-94-1157Bumkhl flowsheetAida Brannonzpatrick NURSE CHARGE RN Work Phone: noms CWM FMStart: 08-19-2024 End: 40-79-8984Dzbbnfzywtyd care manage srvc 7 day dischargeEstrellitakaushal Mary Ann NURSE CHARGE RN Work Phone: noms CWM FMComment on above:Moderate persistent asthma with exacerbation (CMS/HCC) (Primary Dx); Diarrhea, unspecified typeStart: 08-19-2024 End: 33-99-6340xsfktavggaDJFSKPNP REUBENot AvailableStart: 08-12-2024 End: 54-00-6356Tidxumzup Result EncounterSlebron Ohara MD Work Phone: noms External Department UnsolicitedStart: 08-12-2024 End: 55-77-3449Exjfrrevx Result EncounterSlebron Ohara MD Work Phone: noms External Department UnsolicitedStart: 08-12-2024 End: 91-88-1867RbztgsVexhvwsd Reese NURSE CHARGE RN Work Phone: noms CWM FMComment on above:Restless leg syndrome Start: 08-08-2024 End: 47-46-8618Txu-patient / Gso-rcdggTZ-I Aida Reese Work Phone: [facility] Work Phone: Start: 08-08-2024 End: 15-28-0168Pzanpvvbe Result EncounterGeneric External Data ProviderNOMS External Department UnsolicitedStart: 08-08-2024 End: 58-38-8762Hovzmdibw Result EncounterGeneric External Data ProviderNOMS External Department UnsolicitedStart: 07-17-2024 End: 77-69-9347YbjfqqBocw Naderer MD Work Phone: noms CWM FMComment on above:Moderate episode of recurrent major depressive disorder (HCC) (CMS/HCC); Urge incontinenceStart: 07-16-2024 End: 29-73-7032JpjkmlKxckje Robles MANOMS CWM IMComment on above:Chronic bilateral low back pain without sciaticaStart: 07-15-2024 End: 41-91-9843wzayhytnyoWvidsxt Alex Vargas MDFacility:[facility] Start: 07-12-2024 End: 03-98-9448Hpamoceoq Result EncounterBrittany Reese NURSE CHARGE RN Work Phone: NOJY External Department UnsolicitedStart: 07-12-2024 End: 05-99-1583Ffccvttml Result EncounterBrittany Reese NURSE CHARGE RN Work Phone: noms External Department UnsolicitedStart: 07-11-2024 End: 04-25-9896Skvuqo flowsheetBrittany Reese NURSE CHARGE RN Work Phone: noms CWM FMStart: 07-11-2024 End: 31-24-6241Smvohx flowsheetBrittany Reese NURSE CHARGE RN Work Phone: noms CWM FMStart: 07-11-2024 End: 88-50-0693nrhgxiqwwpOQQROABSumma Health [facility] Start: 07-11-2024 End: 64-84-0483Cxzrwc outpatient visit 25 minutesBrbenson Vidaltrick NURSE CHARGE RN Work Phone: noms CWM FMComment on above:Benign essential HTN (CMS/HCC) (Primary Dx); Chronic heart failure with preserved ejection fraction (CMS/HCC); Severe persistent asthma without complication (CMS/HCC); Moderate mixed hyperlipidemia not requiring statin therapy (CMS/HCC); Morbid obesity with BMI of 40.0-44.9, adult (CMS/HCC)Start: 07-02-2024 End: 96-44-7273vepbqnbhytIFRHQGZUniversity Hospitals Health System Start: 29-72-9213Tek-patient / Gxt-lbvojLI-HZeina Reese Work Phone: [facility] Work Phone: Start: 06-28-2024 End: 99-49-9216Enquxvwrr Result EncounterGeneric External Data ProviderNOMS External Department UnsolicitedStart: 06-28-2024 End: 30-37-8940Caknkacxf Result EncounterGeneric External Data ProviderNOMS External Department UnsolicitedStart: 35-20-0899dhrwyjqamsABELTNZOhioHealth Arthur G.H. Bing, MD, Cancer Centertart: 06-24-2024 End: 95-67-9478eypvbzooetXbiewgrHeaven Vargas MDFacility:[facility] Start: 06-21-2024 End: 49-63-8663vgaglehozjVCDRZUPUniversity Hospitals Health System Start: 05-29-2024 End: 65-36-2869Nkocdefoj Result EncounterGeneric External Data ProviderNOMS External Department UnsolicitedStart: 05-29-2024 End: 55-59-3331Brfdppall Result EncounterGeneric External Data ProviderNOMS External Department UnsolicitedStart: 05-13-2024 End: 77-38-8138pfovhexnftMXBP [facility] Centertart: 04-03-2024 End: 81-37-9831Yemxkyqjt Result EncounterSlebron Ohara MD Work Phone: noms External Department UnsolicitedStart: 04-03-2024 End: 89-93-0855Atefucewf Result EncounterSlebron Ohara MD Work Phone: noms External Department UnsolicitedStart: 03-27-2024 End: 54-70-9129Towqadsgl Result EncounterGeneric External Data ProviderNOMS External Department UnsolicitedStart: 03-27-2024 End: 53-35-5142Mugdvzqkd Result EncounterGeneric External Data ProviderNOMS External Department UnsolicitedStart: 03-14-2024 End: 20-81-2787zixnwfwzkmBegait Roshon Work Phone: [facility] Work Phone: Start: 03-14-2024 End: 78-76-6218Wteoosn encounter procedureSteven Josiehon Work Phone: [facility] Ne[facility]rology [place] Work Phone: Start: 83-06-8223Cnl-patient / Non-visitStenaseem Marinellin Work Phone: [facility] Work Phone: Start: 02-29-2024 End: 60-17-4426Jhgbhqkap Result EncounterLisa Aichholz NURSE CHARGE RN Work Phone: noms External Department UnsolicitedStart: 02-29-2024 End: 09-61-7616Zmqyqcijm Result EncounterLisa Aichholz NURSE CHARGE RN Work Phone: noms External Department UnsolicitedStart: 02-13-2024 End: 13-71-2019Ipziofhap Result EncounterSlebron Ohara MD Work Phone: noms External Department UnsolicitedStart: 02-13-2024 End: 16-30-6182Zdfdxzuvi Result EncounterSlebron Ohara MD Work Phone: noms External Department UnsolicitedStart: 02-03-2024 End: 44-31-2308Oknytfmwj Result EncounterGeneric External Data ProviderNOMS External Department UnsolicitedStart: 02-03-2024 End: 76-35-3042Zrrckhixe Result EncounterGeneric External Data ProviderNOMS External Department UnsolicitedStart: 01-26-2024 End: 21-09-5155Tdnbfwtcb Result EncounterSlebron Ohara MD Work Phone: noms External Department UnsolicitedStart: 01-26-2024 End: 02-00-3960Hazcecjkb Result EncounterSlebron Ohara MD Work Phone: noms External Department UnsolicitedStart: 11-06-2023 Patient encounter procedureGeneric ProviderNOWA HealthcareStart: 10-25-2023 End: 43-46-5034Jrypcukux Result EncounterGeneric External Data ProviderNOMS External Department UnsolicitedStart: 10-25-2023 End: 50-10-2308Dtlfskpsa Result EncounterGeneric External Data ProviderNOMS External Department UnsolicitedStart: 09-07-2023 End: 39-53-5720cdvtfzkrykQsztk Joana Other [employer] Other Start: 44-07-7223Dhimecwky encounterAbdul QadirFPG NephrologyStart: 08-28-2023 End: 79-88-8700vtfnziyvajSkmga Joana Other [employer] Other Start: 58-25-7340Hrxitqvmb encounterAbdul QadirFPG NephrologyStart: 08-17-2023 End: 48-27-4943trshyhsiklHyodc Joana Other [employer] Other Start: 04-29-3834Xmuvvm outpatient visit 25 minutes Herberth QadirFPG Nephrology ClydeStart: 04-04-2023 End: 97-82-2674pftkpseefpZRXDJS Dimitry CARLYDFacility:M1Isxvw: 03-24-2023 End: 66-95-2263eucttdiffnIP STEPH GRANADOSFacility:O1Ijbho: 03-02-2023 End: 30-55-9263usiklwncztUerac Joana Other [employer] Other Start: 49-13-2066Ujzxbl outpatient visit 25 minutes Herberth QadirFPG Nephrology ClydeStart: 02-25-2023 End: 37-49-4032jpzlxivfwbCFOJY QADIRFacility:N0Jgluo: 02-22-2023 End: 99-29-9287jzhnxsavfuTXCIDP SAMSA .Facility:X1Wnqew: 12-15-2022 End: 66-18-9017lgoevwqlqvZW JACK HALL .Facility:H1Hfrhy: 12-08-2022 End: 44-93-9726Ojmeptagl to same day surgery centerMD Shaikh Ohara Work Phone: [facility] Work Phone: Start: 12-08-2022 End: 28-77-5002pwomdvdnnyGI Shaikh Lev Work Phone: [facility] Work Phone: Start: 11-11-2022 End: 50-09-1442nskghumqpeNM JACK HALL .Facility:Z2Wxarf: 11-09-2022 End: 14-41-9182turjnxeueyWczt Carloskathy Other [employer] Other Start: 61-04-6205Jldzjvplg encounterAzkatherine TrentFPG NephrologyStart: 08-19-2022 End: 46-58-2609xypltgwfrtNKERF QADIRFacility:I1Drbbm: 08-09-2022 End: 79-51-4798qmbntdvfnwOyhha Joana Other [employer] Other Start: 88-53-1241Ajudly outpatient visit 10 minutes Herberth QadirFPG NephrologyStart: 27-91-2250Pgzilzrwf encounterAbdul QadirFPG NephrologyStart: 78-93-9510Vobupceyu encounterAbdul QadirFPG NephrologyStart: 08-05-2022 End: 11-19-8849hixflxyhiuXHJZJ QADIRNort efw-suhl Other Start: 07-08-2022 End: 97-40-4594aoceuqjuxbFqizpygo McCormack Other [employer] Other Start: 50-89-8077Vbffdxdci encounterGato Domnigo [facility] GastroenterologyStart: 07-05-2022 End: 42-17-2566dbfrosaljoATXXZZ H FAWWADFacility:W7Bnpsv: 06-08-2022 End: 52-61-8795baztbnaspyNVUURW H FAWWADFacility:H5Sdwor: 06-07-2022 End: 85-28-8422aqujadapcnEJOJCE H FAWWADFacility:J5Mlwjy: 01-24-2022 End: 54-58-9986miaymsrabaPNCPKDWZZ UNKNOWNFacility:UTMCStart: 11-17-2021 End: 85-21-5537vafkqmwemjFbgqm Joana Other [place] efw-suhl Other Start: 33-71-1606[place] outpatient visit 15 minutes Herberth QadirFPG NephrologyStart: 67-22-4671Fullce outpatient visit 15 minutes Rena GintyFPG [facility] ClydeStart: 09-11-2020 End: 85-32-0360Hbnyb abstractingVivearik Buck Work Phone: Hematology/OncologyStart: 09-11-2020 End: 39-75-6903Yyjgijq encounter procedureExternal ProviderBellevue Hospital Start: 51-42-0156Qgvdcfv OnlyExternal ProviderExternal-NonCCFStart: 09-30-2019 End: 33-29-6376Fezmxlb encounter procedureSteAshtabula [facility] Main CampusStart: 07-07-2017 End: 44-09-3889Tctubnlqy to day surgeryM[facility]-Digestive HealthStart: 59-21-8542Gitpvxpqcm and management of inpatient [facility]-3 WestStart: 46-88-8309Sorlhgqwfz and [facility]SK[facility] Procedures DateProcedureProcedure DetailPerforming ClinicianStart: 08-04-2025 Gastrointestinal pathogens panel - Stool by KAYLEE with probe detectionKaylene López NP Work Phone: Start: 53-16-3303Ajpwr hip unilateral with pelvis 2-3 viewsGeneric External Data ProviderStart: 99-07-3796SKSSD CULTURE 2Generic External Data ProviderStart: 96-65-3326MKWXZ CULTURE 1Generic External Data ProviderStart: 03-03-2025 End: 34-95-9711Xduwfpvdh mammography bi 2-view breast inc cadKaylene López NURSE CHARGE RN Work Phone: Start: 39-59-6737KDMEU CULTURE 1Generic External Data ProviderStart: 63-49-0426NNXJIX COVID-19/FLUKaylene Streeterstephen NURSE CHARGE RN Work Phone: Start: 12-17-2024 End: 88-47-6024Ujwki hip unilateral with pelvis 2-3 viewsMattcheryl KING Work Phone: Start: 80-99-7634EEBJLHCREZG OF LESIONEmily Meng Lazo MD Work Phone: Start: 40-04-6977INUC / NAIL BIOPSYRylee Russel KING Work Phone: Start: 12-21-8188Utrpqetfmi cells LM Ql (Urine sed) Shaikh Lev DRAPER Work Phone: Start: 27-88-7414PGFO STAIN EVALUATIONSlebron Ohara MD Work Phone: Start: 93-58-1183Ijcliplpqo [#/volume] in BloodShhyacinth Ohara MD Work Phone: Start: 06-98-6761BPTPO RESPIRATORY CULTURESlebron Ohara MD Work Phone: Start: 67-64-0588PMMXTZ 1Slebron Ohara MD Work Phone: Start: 71-57-8370NRSQMO 2Slebron Ohara MD Work Phone: Start: 86-73-3727KEVYRB 3Slebron Ohara MD Work Phone: Start: 24-19-6761SXLJGF 4Slebron Ohara MD Work Phone: Start: 23-89-5505WBIVE CULTURE 1Generic External Data ProviderStart: 76-28-2692ZMUVM CULTURE 2Generic External Data ProviderStart: 40-10-6799HVR CBC WITH AUTO DIFFBrittany Reese NURSE CHARGE RN Work Phone: Start: 51-88-6008DIXMP CULTURE 2Generic External Data ProviderStart: 37-93-8158LNYEJ CULTURE 1Generic External Data ProviderStart: 13-77-1460BI ECHO DOPPLER COMPLETEGeneric External Data ProviderStart: 44-90-6552QT CHEST 2Kiko Ohara MD Work Phone: Start: 92-59-8675FP CHEST 2Kiko Ohara MD Work Phone: Start: 91-91-9600DC THORACIC SPINE 3VGeneric External Data ProviderStart: 36-00-4118TE TOMOSYNTHESIS SCREENING BILisa Rene NURSE CHARGE RN Work Phone: Start: 86-91-1878XkwfvrihasnGfefqdo ProviderStart: 64-29-3525JT LUMBAR SPINE WO Joyce Ohara MD Work Phone: Start: 07-56-5625XR CHEST 1 VGeneric External Data ProviderStart: 91-11-5079NS LUMBAR SPINE 2 OR 3Kiko Ohara MD Work Phone: Start: 36-75-1743DO CHEST 2VGeneric External Data ProviderStart: 12-08-2022 End: 91-28-3487MqbczycqpekVT Shaikh Lev Work Phone: Start: 29-49-1172KWIPJQCI IMAGINGExternal Provider Start: 94-87-8003MGYXNMVN LABExternal ProviderStart: 98-55-8590GIKPXXID PROCEDUREExternal ProviderStart: 43-88-3426Sphtnreqkmthdwn of bilateral kidneys Steph RoshonArthroplasty of kneeJENNIFER JOSE ALEJANDRO ColonoscopyJENNIFER JOSE ALEJANDRO Extraction of cataractJENNIFER JOSE ALEJANDRO Insertion of hip prosthesisJENNIFER JOSE ALEJANDRO Ligation of fallopian tubeJENNIFER JOSE ALEJANDRO Plan of Treatment DateCare ActivityDetailAuthorStart: 89-47-3811Xgqjjqegl for malignant neoplasm of colonNOMS HealthcareStart: 12-15-2026 End: 77-45-2120Ubebpct encounter procedureNOMS FB ORTHOPAEDICSStart: 07-16-2026 End: 20-63-7550Yfcgxjd encounter /10/2026 8:45 AM EDT Office Visit [facility] [address] [place] [address] Jessica Lazo MD [address] [place] [address] [facility]akes DermatologyStart: 04-09-2026 Urine screening for proteinDiabetes: Urine Protein ScreeningWashington [facility] Comment on above:Postponed from 1975 (Other Medical Reasons)Start: 85-10-2598Bcdjychyd for malignant neoplasm of breastMammogramNOMS Healthcare Start: 78-07-5668Olecogr referralFayette County Memorial Hospital Work Phone: Start: 07-17-2025 End: 13-80-9670Ytarheg encounter fdksoeauu81/11/2025 9:00 AM EDT Office Visit [facility] [address] [place] [address] Kaylene López NP [address] [place] [address] WILL TSAI FMStart: 07-16-2025 End: 08-33-2178Sblbtqc encounter rkpgnehxu38/10/2025 2:45 PM EDT Office Visit [facility] [address] [place] [address] Jessica Lazo MD [address] [place] [address] [place] [address] [facility] DermatologyStart: 07-07-2025 Influenza vaccinationInfluenza Vaccine (#1)NOM HealthcareStart: 06-17-2025 End: 47-11-2494Kotesgr encounter procedureNOMS [facility] DERMStart: 05-19-2025 End: 16-69-2167Vqkqufx encounter procedureNOMS CW FMComment on above:Moderate episode of recurrent major depressive disorder (HCC) (Primary Dx); Morbid (severe) obesity due to excess calories (CMS-HCC)Start: 04-09-2025 End: 14-53-6811Siemyld encounter esqhexrqp07/04/2025 11:00 AM EDT Office Visit [facility] [address] [place] [address] Kaylene López, RIKKI [address] [place] [address] Pulmonary emphysema, unspecified emphysema type (CMS/HCC) (Primary Dx); Chronic respiratory failure with hypoxia (CMS/HCC); Morbid (severe) obesity due to excess calories (CMS/HCC)[facility] FMComment on above: Pulmonary emphysema, unspecified emphysema type (CMS/HCC) (Primary Dx); Chronic respiratory failure with hypoxia (CMS/HCC); Morbid (severe) obesity due to excess calories (CMS/HCC)Start: 03-26-2025 End: 77-06-1613Iouiprn encounter krrqfignp41/21/2025 11:30 AM EDT Office Visit [facility] [address] [place] [address] Kaylene López, RIKKI [address] [place] [address] [facility] FMStart: 42-59-3676Qgfvckvej for malignant neoplasm of breastMammogramNOWA HealthcareStart: 02-17-2025 End: 26-30-3772Tglzgoi encounter procedureNOONECORE HEALTH – [place] FMComment on above:Spinal stenosis, lumbar region without neurogenic claudication (Primary Dx); Chronic heart failure with preserved ejection fraction (CMS/HCC); Chronic respiratory failure with hypoxia (CMS/HCC); Severe persistent asthma, uncomplicated (CMS/HCC); Gastroesophageal reflux disease, unspecified whether esophagitis present; Morbid (severe) obesity due to excess calories (CMS/HCC)Start: 02-16-2025 End: 32-27-0811RQ Breast - bilateral ScreeningBilateral screening mammogram Imaging Routine Screening mammogram for breast cancer Expected: 02/16/2025 (Approximate), Expires: 03/18/2026[facility] Work Phone: Comment on above:Expected: 02/16/2025 (Approximate), Expires: 03/18/2026Start: 01-16-2025 End: 31-52-2544Samtstq encounter subhzzotx96/13/2025 10:00 AM EDT Office Visit [facility] [address] [place] [address] Kaylene López NP [address] [place] [address] [facility] FMStart: 01-09-2025 End: 95-87-1595Fgcnsic encounter uafgqxjpj70/06/2025 1:40 PM EST Office Visit [facility] [address] [place] [address] Kaylene López, RIKKI [address] [place] [address] [facility] FMStart: 01-09-2025 End: 92-53-8380Asljsgj encounter mklspthub24/06/2025 8:30 AM EST Office Visit [facility] [address] [place] [address] Aida Reese NP [address] [place] [address] NOMS QUIN FMStart: 01-02-2025 End: 59-38-9550Gnmosvm encounter mvvfnwxxi50/27/2025 2:40 PM EST Office Visit [facility] [address] [place] [address] Kaylene López, NURSE CHARGE RN [address] [place] [address] Pulmonary emphysema, unspecified emphysema type (CMS/HCC) (Primary Dx); Chronic kidney disease, stage 3a (HCC) (CMS/HCC); Severe persistent asthma, uncomplicated (CMS/HCC); Morbid (severe) obesity due to excess calories (CMS/HCC); Body mass index (BMI) 40.0-44.9, adult (CMS/HCC); Chronic respiratory failure with hypoxia (CMS/HCC); Essential hypertension (CMS/HCC); Gastroesophageal reflux disease, unspecified whether esophagitis present; Malignant neoplasm of rectosigmoid junction (CMS/HCC); Urge incontinenceNOMS CWM FMComment on above:Pulmonary emphysema, unspecified emphysema [...] rectosigmoid junction (CMS/HCC); Urge incontinenceStart: 12-17-2024 End: 58-22-8747Aglcotl encounter procedureNOMS FB ORTHOPAEDICSStart: 12-13-2024 End: 56-50-6239Avmxpgw encounter procedureNOMS SWS DERMComment on above:Arrived Start: 12-09-2024 End: 87-08-4331Ngvshld encounter mhrcojwsw99/03/2025 2:30 PM EST Office Visit [facility] [address] [place] [address] Aida Reese, RIKKI [address] [place] [address] NOM[facility] CWM FMStart: 11-20-2024 End: 32-31-6446Jehpqls encounter procedureNOMS FB ORTHOPAEDICSStart: 11-15-2024 End: 75-34-7205Llsgefy encounter jiztkxcsb01/10/2025 10:30 AM EST Office Visit [facility] [address] [place] [address] Jayna Goode PA [address] [place] [address] NOMS SWS DERMStart: 11-12-2024 End: 05-89-5665BT Chest 2 ViewsXR chest 2 views Imaging Routine Chronic obstructive pulmonary disease with acute lower respiratoryinfection ([facility]/HCC) Expected: 11/12/2024, Expires: 11/12/2025[facility] Work Phone: Comment on above:Expected: 11/12/2024, Expires: 11/12/2025Start: 11-12-2024 End: 68-81-0480Hbechxe encounter eurcijgjj62/07/2025 10:30 AM EST Office Visit [facility] [address] [place] [address] Aida Reese NP [address] [place] [address] ArrivedNOMS CWM FMComment on above:ArrivedStart: 10-11-2024 End: 01-85-6904Fddplpa encounter tssgshmse14/06/2024 8:50 AM EST Office Visit [facility] [address] [place] [address] Jayna Goode PA [address] [place] [address] Neoplasm of uncertain behavior of chest wallNOMS SWS DERMComment on above:Neoplasm of uncertain behavior of chest wallStart: 10-09-2024 End: 16-49-1419Ynsrdci encounter ydvakjgoh12/04/2024 9:00 AM EST Office Visit [facility] [address] [place] [address] Aida Reese, NURSE CHARGE RN [address] [place] [address] NOM[facility] CWM FMStart: 10-07-2024 End: 64-15-8058Ulcochy encounter xusrcpipc14/02/2024 2:30 PM EST Office Visit [facility] [address] [place] [address] Aida Reese, NURSE CHARGE RN [address] [place] [address] ArrivedNOMS CWM FMComment on above:ArrivedStart: 09-12-2024 Phacoemulsification of cataract with intraocular lens implantationOR Cataract PHACO W/IOL/Vitrectomy (Left)[facility]tart: 08-19-2024 End: 68-51-6889Ihwgoeuhsngkvy difficile toxin A+B tcdA+tcdB genes [Presence] in Stool by KAYLEE with probe detectionClostridium difficile,EIA Microbiology Routine Diarrhea, unspecified type Expected: 08/19/2024 (Approximate), Expires: 08/19/2025[facility] Work Phone: Comment on above:Expected: 08/19/2024 (Approximate), Expires: 08/19/2025Start: 08-19-2024 End: 50-34-0544Svrpxhk encounter procedureNOMS CWM FMComment on above:Arrived Start: 07-11-2024 End: 23-29-2856MNX W Auto Differential panel - BloodCBC and differential Lab Routine Benign essential HTN (CMS/HCC) Chronic heart failure with preserved ejection fraction (CMS/HCC) Moderate mixed hyperlipidemia not requiring statin therapy (CMS/HCC) Morbid obesity with BMI of 40.0-44.9, adult (CMS/HCC) Expected: 07/11/2024 (Approximate), Expires: 07/11/2025[facility] HealthcareComment on above:Expected: 07/11/2024 (Approximate), Expires: 07/11/2025Start: 07-11-2024 End: 96-65-5807Kzgkztdhqhpvd metabolic 2000 panel - Serum or PlasmaComprehensive metabolic panel Lab Routine Benign essential HTN (CMS/HCC) Chronic heart failure withpreserved ejection fraction (CMS/HCC) Moderate mixed hyperlipidemia not requiring statin therapy (CMS/HCC) Morbid obesity with BMI of 40.0-44.9, adult ([facility]/HCC) Expected: 07/11/2024 (Approximate), Expires: 07/11/2025[facility] HealthcareComment on above:Expected: 07/11/2024 (Approximate), Expires: 07/11/2025Start: 07-11-2024 End: 40-70-5446Kokrk 1996 panel - Serum or PlasmaLipid panel Lab Routine Moderate mixed hyperlipidemia not requiring statin therapy (CMS/HCC) Expected: 07/11/2024 (Approximate), Expires: 07/11/2025[facility] HealthcareComment on above: Expected: 07/11/2024 (Approximate), Expires: 07/11/2025Start: 07-11-2024 End: 60-25-7117Ebpdrantdalw/Creatinine panel in random UrineMicroalbumin / creatinine urine ratio Lab Routine Benign essential HTN (CMS/HCC) Expected: 07/11/2024 (Approximate), Expires: 07/11/2025[facility] Healthcare Work Phone: Comment on above:Expected: 07/11/2024 (Approximate), Expires: 07/11/2025Start: 07-11-2024 End: 45-12-7229Zkqquuo encounter procedureNOMS CWM FMComment on above:Benign essential HTN (CMS/HCC) (Primary Dx); Chronic heart failure with preserved ejection fraction (CMS/HCC); Severe persistent asthma without complication (CMS/HCC)Start: 07-07-2024 Influenza vaccinationInfluenza Vaccine (#1)[facility] CenterStart: 12-08-2022 [facility]tart: 57-31-2162Lwiyonhmy vaccinationINFLUENZA (#1)[facility]art: 76-57-2915NGOLBHWZ VACCINE (1 of 2)SHINGRIX VACCINE (1 of 2)[facility]ertart: 19-14-3636Rujcfjvqhubj screeningCOLORECTAL CANCER SCREENING,SEE MODIFIERMercy Health St. Vincent Medical Centertart: 07-95-1681NJLHOKTR SCREENDIABETES SCREENMercy Health St. Vincent Medical Centertart: 20-49-2191WXEHR SCREENLIPID SCREENBellevue Hospital Start: 72-26-8672YgbudoshdiaQZFTXWMFEWntugfzbb ClinicStart: 95-50-7046XPH TESTINGHPV TESTINGMercy Health St. Vincent Medical Centertart: 44-44-9956VDY TESTINGPAP TESTING [facility] Centertart: 27-64-1114Smqzb microalbumin profileDTAP,TDAP,TD (1 - Tdap)[facility] Centertart: 83-37-8408Czdjk screening for proteinDiabetes: Urine Protein ScreeningWashington University Medical CenterStart: 84-67-9912OCUUNCQYH C SCREENINGHEPATITIS C SCREENINGMercy Health St. Vincent Medical Centertart: 17-75-7752NOR SCREENINGHIV SCREENINGMercy Health St. Vincent Medical Centertart: 45-29-7485Yfgzwbsb screeningDiabetes: Retinopathy ScreeningPAR[facility] HealthcareStart: 10-91-6319Rzucnrjijc A1c measurementDiabetes: Hemoglobin A1C [facility] HealthcareStart: 33-44-1120Ibonctfdk for malignant neoplasm of colonNOMS HealthcareBLOOD CULTURE 1BLOOD CULTURE 1 Lab Routine 08/08/2024 8:30 PM EDTNOMS HealthcareBLOOD CULTURE 1BLOOD CULTURE 1 Lab Routine 06/28/2024 8:20 PM EDTNOMS HealthcareBLOOD CULTURE 1BLOOD CULTURE 1 Lab Routine 01/02/2025 4:30 PM ESTNOMS HealthcareBLOOD CULTURE 1BLOOD CULTURE 1 Lab Routine 03/10/2025 10:25 PM EDTNOMS HealthcareBLOOD CULTURE 2BLOOD CULTURE 2 Lab Routine 08/08/2024 8:20 PM EDTNOMS HealthcareBLOOD CULTURE 2BLOOD CULTURE 2 Lab Routine 06/28/2024 8:21 PM EDTNOWA HealthcareBLOOD CULTURE 2BLOOD CULTURE 2 Lab Routine 03/10/2025 10:32 PM EDT [facility] HealthcareComprehensive metabolic 2000 panel - Serum or PlasmaMercy Health St. [facility] Warren HospitalDermatopathology examDermatopathology exam Pathology and Cytology Timed Neoplasm of unspecified behavior of bone, soft tissue, and skin Release Upon Ordering for 1 Occurrences starting 10/11/2024[facility] Work Phone: comment on above:Release Upon Ordering for 1 Occurrences starting 10/11/2024LOWER RESPIRATORY CULTURELOWER RESPIRATORY CULTURE Lab Routine 08/12/2024 9:50 [facility] Work Phone: Patient EducationColon Polypectomy Hemorrhoids (DC) Diverticulosis (DC)[facility] Work Phone: Patient referralF[facility] Work Phone: Urine [facility] Immunizations Immunization DateImmunizationNotesCare LihnpmdqLyoufygm52-14-8725ztxhwbdog, high dose seasonal, preservative-freeLisa Rene NURSE CHARGE RN Work Phone: [facility] CenterMbjgctifwx33-19-1858ucvmmjbrw virus vaccine, unspecified formulationAida Reese NURSE CHARGE RN Work Phone: [facility]10-21-2023Influenza, High-dose Seasonal, Quadrivalent, Preservative Free Generic [facility] HospitalMwdjoynnok46-65-4324ekvpbngro virus vaccine, unspecified formulationGeneric ProviderExec[facility]10-13-2023RSV, recombinant, protein subunit RSVpreF, adjuvant reconstitu, 120mcg/0.5mL, PF (Arexvy)Generic [facility]10-04-2023 Pneumococcal Conjugate PCV 20Generic [facility] HospitalMlobupobzz63-42-8962kfvwny vaccine recombinantGeneric [facility] HospitalChmtltcwas93-49-3106lnjgdl vaccine recombinantGeneric [facility] HospitalVimigwobts41-63-7473hsstfmgqo virus vaccine, unspecified formulationJENNIFER JOSE ALEJANDRO [facility]09-29-2022Influenza, High-dose Seasonal, Quadrivalent, Preservative Free Generic [facility] HospitalHuuksyrvnc80-10-8125VOPJ-NxT-6 (COVID-19) mRNAMUL.ORD!t69005JSYBUMGD JOSE ALEJANDRO [facility]05-20-2022SARS-CoV-2 (COVID-19) mRNA-1273 vaccineJENNIFER JOSE ALEJANDRO [facility]11-01-2021SARS-CoV-2 (COVID-19) mRNA-1273 vaccineJENNIFER JOSE ALEJANDRO [facility]10-01-2021influenza virus vaccine, unspecified formulationJENNIFER JOSE ALEJANDRO [facility]10-01-2021Influenza, High-dose Seasonal, Quadrivalent, Preservative Free Generic [facility] HospitalJtmorkpsfi77-38-9489RLPH-AdP-6 (COVID-19) mRNA-1273 vaccine MAG JOSE ALEJANDRO [facility] on above:Result Comment: 2025-03-24: DSU3466-63-5825IKJF-AyF-8 (COVID-19) mRNA-1273 vaccineJENNIFER JOSE ALEJANDRO [facility] on above:Result Comment: 2025-03-24: DKF2423-81-2891wzacxtsic virus vaccine, unspecified formulationJENNIFER JOSE ALEJANDRO [facility]10-02-2020influenza, injectable, quadrivalent, preservative freeGeneric [facility] HospitalGquuagyurl91-15-6368syyyhzgva virus vaccine, unspecified formulationJENNIFER JOSE ALEJANDRO [facility]10-04-2019influenza, injectable, quadrivalent, preservative freeGeneric [facility] HospitalPftqysuajx18-03-8574zavhfcjdsftt polysaccharide vaccine, [address] [facility] HospitalUguxgbrkpu08-46-8724kbagwwiva virus vaccine, unspecified formulationJENNIFER JOSE ALEJANDRO [facility]10-03-2018influenza, injectable, quadrivalent, preservative freeGeneric [facility] HospitalXbvptneyfr31-73-5249Zein-Fzmodf 40 mgAmber Ginty Other [employer] Other 03-100399-72-5315Nukt-Wjczah 40 mgAmber Ginty Other [employer] Other 10-881147-93-8471mvfabrqft virus vaccine, unspecified formulationJENNIFER JOSE ALEJANDRO [facility]10-05-2017influenza, injectable, quadrivalent, preservative freeGeneric [facility] HospitalCxoagccpyp21-83-7308hqrervoyb virus vaccine, split virus (incl. purified surface antigen)Generic [facility] HospitalKcwlozpmri49-97-8672lqnggwwsa virus vaccine, unspecified formulationSteven Roshon Work Phone: [facility]10-04-2017influenza, seasonal, injectable, preservative freeAmber Ginty Other [employer] Other 10-482218-40-6452hlpmf zhhoayxmt-T6X2-26, preservative-free, injectableGeneric [facility] Payers DatePayer CategoryPayerPolicy [id number] 2025Medicaid [id number] 2024 Medicare (Managed Care)[id number]1360.90293-40-2086 Private Health [id number]d [id number] [id number] 2020Medicaid [id number] [facility] MED[facility]ID [id number] 2019-Present [id number] [id number] 2017Medicare [id number] 2016MedicareMEDICARE MEDICARE A AND B [id number] 2016-Present [place], [place] [id number] 1.2.840.873279.1.13.159.2.7.3.86757[id number] [id number] 2.16.840.1.357759.3.57[id number] 2.16.840.1.557603.3.579.2.08770-94-9860Xcldxin1608409 2.16.840.1.613984.3.579.2.11957-78-9080Mbvwibq2880885 2.16840.1.115490.3.579.2.23111-46-0892Fkttllt8467167 2.16840.1.691162.3.579.2.03522-11-6506Pkdlyee3380966 2.16840.1.358312.3.579.2.95444-97-1449Ekzfqop6963124 2.16840.1.979323.3.579.2.32053-57-3231Fzbloru3295933 2.16840.1.443312.3.579.2.53068-92-0705Vvqwcal0108310 2.16840.1.791659.3.579.2.51870-68-2833Jkdiqbc0442786 2.16840.1.087552.3.579.2.27664-19-0877Xdvuyco9086939 2.16840.1.556463.3.579.2.55923-64-3576Bsklonq8986091 2.16840.1.689934.3.579.2.26073-90-7051Ydfgotp79012838 2.16840.1.006205.3.579.2.68449-19-2098Apatsgj23031184 2.16840.1.377313.3.579.2.57188-59-0121Rlipwlz71062508 2.16840.1.138307.3.579.2.81714-08-9278Ppusljn609188929 2.16840.1.239968.3.579.2.01710-78-9435Rkiaxhq673913744 2.16840.1.004514.3.579.2.52683-83-0926Rdkrlzj030755371 2.0.1.231860.3.579.2.73075-00-8448Cralfjs03933820 2.0.1.660756.3.579.2.912483-41-6214Bylzwij55690249 2.0.1.582161.3.579.2.059490-07-4620Bibrpat72264401 2.0.1.605728.3.579.2.499164-79-8361Vriephf5120922 2.0.1.288374.3.579.2.434198-04-7128Pcegnyy6725385 2.0.1.321704.3.579.2.469140-49-7814Utjjmzy0982727 2.0.1.125474.3.579.2.134245-72-7930Aqihutc5153990 2..1.976550.3.579.2.588260-38-4417Qnfwryl8655436 2..1.470578.3.579.2.813654-98-8447Vchwsxc5406458 2..1.105844.3.579.2.700631-25-9087Jvpodhp9993884 2.0.1.401930.3.579.2.940677-65-6228Cfmzrsc0257779 2.840.1.308571.3.579.2.365854-23-5918Mvcephs4399182 2.840.1.560209.3.579.2.431797-74-0648Edsjfxi7185626 2.0.1.009730.3.579.2.323074-15-7954Nfxbqdt0858119 2.16.840.1.958006.3.579.2.288164-41-8520Qtyurtp5338883 2.16.840.1.173408.3.579.2.277893-76-3999Kwizozf7807546 2.16.840.1.626855.3.579.2.026815-51-6754Dgxmblu63446228 2.16.840.1.925293.3.579.2.18115-75-2152Gyehegt84663177 2..0.1.111614.3.579.2.10538-50-0925Bigpgxh00777268 2..0.1.294075.3.579.2.58246-41-6541Zasjcns66030568 2.16.840.1.62[id number]-ccgYgas Pay [id number] Social History DateTypeDetailFacilityTobacco smoking status NHISUnknown if ever smokedMercy Health St. [facility] CtrStart: 08-47-4011Cje Assigned At BirthFeKettering Memorial Hospitaltart: 09-11-2020 End: 63-19-3182Bniyaff smoking status NHISNever smokerProtestant Deaconess Hospitaltart: 09-11-2020 End: 27-69-4333Uujhxjz use and exposureNever usedMercy Health St. Vincent Medical Centertart: 09-11-2020 End: 87-90-4368Xwknpou intakeLifetime non-drinker (finding)[facility] Start: 36-74-3783Cacpmnk SDOH Alcohol Epdbhcssn2Jilzeqdmt ClinicStart: 29-26-5423Mau Assigned At BirthNot on fileClecleveland clinic mentor hospital ClinicStart: 10-26-2023 End: 00-82-5370Qcz Assigned At BirthNOWA HealthcareStart: 10-26-2023 End: 07-80-2922Rnwhknw of Social functionNOMS HealthcareWithin the last year, have you been afraid of your partner or ex-partner?NoNOMS HealthcareAre you now , , , , never or living with a partner? DivorcedNOMS HealthcareHow often to you have a drink containing alcohol?Never [facility] HealthcareStart: 11-11-9847Mgy many standard drinks containing alcohol do you have on a typical day?Patient does not drinkNOMS HealthcareHow hard is it for you to pay for the very basics like food, housing, medical care, and heating Not very hardNOMS HealthcareDo you feel stress - tense, restless, nervous, or anxious, or unable to sleep at night because yourmind is troubled all the time - these days [OSQ]To some extentNOMS Healthcare(I/We) worried whether (my/our) food would run out before (I/we) got money to buy more.Never trueNOMS Healthcare Start: 06-22-8762Szcnstt Commentcaffeine: more than 4 cups per dayNOWA HealthcareStart: 02-17-2010 End: 85-71-9600QjgInsltv ([facility] HospitalHow hard is it for you to pay for the very basics like food, housing, medical care, and heatingSomewhat hardNOMS HealthcareDo you feel stress - tense, restless, nervous, or anxious, or unable to sleep at night because yourmind is troubled all the time - these days [OSQ]Only a littleNOMS HealthcareSexual Orientation [facility] NEGATED: Highlighted rowStart: NINFHistory of tobacco usePassive smokerNOMS Healthcare Goals DatePatient GoalDesired Activity/StatePersonal health goal Functional Status HibvSqkkilcfdzTyvwuuAlsuwxmr78-70-0099Lrcxwzglgj StatusN/AExec[facility]01-20-2025Total score [AUDIT-C]0 11/25/2024 4:37 PM EST Mychart, GenericWashington University Medical CenterLjhoaqapao18-02-6544Cnt often do you have a drink containing alcohol?Never 11/25/2024 4:37 PM EST Mychart, Generic NeverWashington University Medical CenterQujhktrvcs45-16-2612Jrljnxejlr statusPatient does not drink 11/25/2024 4:37 PM EST Mychart, Generic Patient does not drinkWashington University Medical CenterHmknlanayg41-29-6958Rrt often do you have 6 or more drinks on 1 occasion?Never 11/25/2024 4:37 PM EST Mychart, Generic NeverWashington University Medical CenterXhetwtrpsk37-35-7880Qcrxqeavtt StatusN/AExec[facility]24Patient Health Questionnaire 2 item (PHQ-2) [Reported][facility] Medical CenterAnbwzwibqc40-33-2742Kaxvvsm Health Questionnaire 2 item (PHQ-2) [Reported][facility] Medical CenterUafvqrhynq22-49-8041Xfhubij Health Questionnaire 2 item (PHQ-2) [Reported][facility] Medical CenterMvhhacbkll71-17-9585Bsduvgd Health Questionnaire 2 item (PHQ-2) [Reported][facility] Medical CenterBeeaqginpa62-83-9593Fjhulma Health Questionnaire 2 item (PHQ-2) [Reported][facility] Clinical Notes 08-30-2021 to 07-22-2025 Note Date & PfeiIcjiPchlckam33-92-0427 Hospital Discharge instructions Patient Education 07/22/2025 09:50:03 [...] your health care provider. General instructions Take cnug-mtf-kkpjvpx and prescription medicines only as told by [...] provider. Document Revised: 07/12/2021 Document Reviewed: 07/12/2021 [employer] Patient Education 2023 [employer]. 07/22/2025 09:50:03 Urinary Incontinence Urinary Incontinence Urinary [...] (electrical nerve stimulation). ?For women, using a nurses medical assistants phlebotomists to prevent urine leaks. This is a [...] right after experiencing incontinence. General instructions Take arvm-qsl-thygwfj and prescription medicines only as told by [...] important. Where to find more information National [place] of Diabetes and Digestive and Kidney Diseases: www.niddk.nih.gov [employer]: www.urologyhealth.org Contact a health care [...] provider. Document Revised: 05/28/2021 Document Reviewed: 05/28/2021 [employer] Patient Education 2023 [employer] Follow Up Care 07/18/2025 09:18:17 With:Amalia Stephens PA-C, YANY Address: When:Within 2 Month(s) Comments:w/ PVR [facility] 09-16-2025 NotePatient Education Obstetrics and Gynecology Overactive [...] health care provider. General instructions ??? Take xtli-wpv-qioskuw and prescription medicines only as told by [...] you drink, and whe (more content not included)...[facility]09-11-2025 Evaluation note* Diagnosis Onset Date Resolution Status Admit Date Chronic respiratory failure acuteSeptember 2024 8:49amEssential hypertensionacuteSeptember 2024 8:49amHypokalemiaacuteSeptember 2024 8:49amHypomagnesemiaacuteSeptember 2024 8:49amMajor depression, recurrent, chronicacuteSeptember 2024 8:49amMorbid obesity due to excess caloriesacuteSeptember 2024 8:49am Bilateral lower extremity edemaacuteSeptember 2024 10:02amChronic GERD without esophagitisacuteSeptember 2024 10:02amChronic respiratory failure with hypoxiaacuteSeptember 2024 10:02amCOPD (chronic obstructive pulmonary disease)acuteSeptember 2024 10:02amMorbid obesity due to excess calories acuteSeptember 2024 10:02amNauseaacuteSeptember 2024 10:02amStage 3 chronic kidney diseaseacuteSeptember 2024 10:02am [facility] Work Phone: 1(483) 665-933509-11-2025 Evaluation note* Diagnosis Onset Date Resolution Status Admit Date Chronic respiratory failure acuteSeptember 2024 8:49amEssential hypertensionacuteSeptember 2024 8:49amHypokalemiaacuteSeptember 2024 8:49amHypomagnesemiaacuteSeptember 2024 8:49amMajor depression, recurrent, chronicacuteSeptember 2024 8:49amMorbid obesity due to excess caloriesacuteSeptember 2024 8:49am Bilateral lower extremity edemaacuteSeptember 2024 10:02amChronic GERD without esophagitisacuteSeptember 2024 10:02amChronic respiratory failure with hypoxiaacuteSeptember 2024 10:02amCOPD (chronic obstructive pulmonary disease)acuteSept2024 10:02amDiarrheaacuteSept2024 10:02amMorbid obesity due to excess caloriesacutept2024 10:02am NauseaacuteSept2024 10:02amStage 3 chronic kidney diseaseacute August 04, 2025 10:02amChronic respiratory failure with hypoxiaacuteOctober 2024 8:39amEncounter for subsequent annual wellness visit (AWV) in Medicare patientacuteOctober 2024 8:39amMorbid obesity due to excess caloriesacuteOctober 2024 8:39am [facility] Work Phone: 1(630) 457-618309-10-2025 History of Present illness Narrative* Jessica Lazo [...] SCC (SQUAMOUS CELL CARCINOMA) OF SKIN Chest [facility] No evidence of recurrence at SCC scar. [...] 1 year, skin check documented in this encounterWashington University Medical CenterDoydvnviyn08-13-6689 Telephone encounter Note* Telephone Encounter - Kaylene [...] if no help let me know [place] [facility] CenterSwakrrfhbn76-43-7952 Miscellaneous Notes* Telephone Encounter - Kaylene López [...] let me know [place] documented in this encounterWashington University Medical CenterOidpkzaosj19-74-1914 History of Present illness Narrative* KATE MTZ [...] (HCC) Chronic kidney disease, stage III (moderate) ([facility]) Chronic obstructive pulmonary disease (COPD) (HCC) Colon cancer (HCC) Colorectal cancer (HCC) Contact w and exposure to oth viral communicable diseases COPD exacerbation (HCC) Coronary artery disease Depression Emphysema, unspecified (HCC) Encounter for gynecological examination (general) (routine) without abnormal findings Essential (primary) hypertension Exposure to STD Gastroesophageal reflux disease General deterioration of health HPV in female Hyperlipidemia Hyperuricemia Intertrigo Iron deficiency anemia Low back pain Morbid obesity with BMI of 40.0-44.9, adult ([facility]) Osteoporosis screening Pneumonia Positive depression [...] 03/[address] LINN SPINAL FUSION 05/07/2003 [facility] [place] TOTAL HIP ARTHROPLASTY Left 08/30/2019 REMOVED TOTAL [...] Morbid (severe) obesity due to excess calories ([facility]-HCC) Discussed with patient their BMI (actual, verses [...] does not take any documented in this encounterWashington University Medical CenterBnpqbmppbn47-53-8116 History of Present illness Narrative* Kaylene López NP - 04/09/2025 12:37 PM EDTAssociated Problem(s): Depression ([facility]/HCC) Current med paxil Will add on medication * KATE MTZ - 04/09/2025 11:00 AM EDT 3L * Kaylene López NP - 04/09/2025 11:00 AM EDT Images from the original note were not included. Diana Champion is a 69 y.o. female presents with chief complaint of Hospital Follow-up HPI: Here for hospital follow up: [facility]. Now at home: breathing has [...] 03/[address] LINN SPINAL FUSION 05/07/2003 [facility] [place] TOTAL HIP ARTHROPLASTY Left 08/30/2019 REMOVED TOTAL [...] This Visit Chronic obstructive pulmonary disease (COPD) ([facility]) Current meds: albuterol nebs and inhaler, trelegy, oxygen Follows with Pulmonology [facility] Depression ([facility]) - Primary Current med paxil [...] invasive vent at night Johny is managing salvager helper * Kaylene López NP - 04/09/2025 6:31 [...] invasive vent at night Johny is managing salvager helper * Kaylene López NP - 04/09/2025 6:31 AM EDTAssociated Problem(s): Chronic obstructive pulmonary disease (COPD) (CMS/HCC) Current meds: albuterol nebs and inhaler, trelegy, oxygen Follows with Pulmonology Johny documented in this encounterWashington University Medical CenterNnhjpjaqyk50-86-2361 Instructions* Patient Instructions* Kaylene López NP - 04/09/2025 11:00 AM EDT Will add on med for depression, will call pt w decision documented in this encounterWashington University Medical CenterTkrwekboaz17-91-7383 Hospital Discharge instructions Patient Education 03/24/2025 10:43:28 [...] your health care provider. General instructions Take tene-gjp-eggvths and prescription medicines only as told by [...] provider. Document Revised: 07/12/2021 Document Reviewed: 07/12/2021 [employer] Patient Education 2023 [employer]. Follow Up Care 10/15/2024 15:05:18 With:MAG BLOUNT PA-C, URL Address: [address] [place] [address]. [place] [address] When:Within 3 Month(s) [facility] 05-19-2025 NotePatient Education Obstetrics and Gynecology Overactive [...] health care provider. General instructions ??? Take izje-cep-xwgjjbw and prescription medicines only as told by [...] you drink, and whe (more content not included)...[facility]04-14-2025 History of Present illness Narrative* Kaylene López, NURSE CHARGE RN - 02/17/2025 9:03 AM EDTAssociated Problem(s): Edema [...] ferrous sulfate 325 mg, Daily with breakfast Mznjjhrivld-Mctoxliti-Aryafg (Trelegy Ellipta) 200-62.5-25 MCG/ACT aerosol powder 1 [...] Morbid obesity with BMI of 40.0-44.9, adult ([facility]/HCC) Osteoporosis screening Pneumonia Positive depression screening Post-menopausal Restless leg syndrome Right hip pain Urge incontinence Vitamin D deficiency Past Surgical History: Procedure Laterality Date BACK SURGERY 2004 CARDIAC CATHETERIZATION Left 06/14/2014 Left Heart-Ventricular Puncture CARDIAC CATHETERIZATION Left 08/13/2018 Left Heart-Ventricular Puncture FOOT SURGERY 09/2015 JOINT REPLACEMENT Left 08/01/2016 Hip replacement REVISION TOTAL HIP ARTHROPLASTY Left 03/[address] LINN SPINAL FUSION 05/07/2003 [facility] [place] TOTAL HIP ARTHROPLASTY Left 08/30/2019 REMOVED TOTAL [...] significantly elevated right sided pressure at 66 [facility] Cardiology Gastroesophageal reflux disease Recommendations: freq [...] invasive vent at night Johny is managing salvager helper Edema of both lower extremities Elevate legs [...] oxygen dependant, non invasive vent at night [facility] salvager helper * Kaylene López NP - 02/17/2025 6:08 AM EDTAssociated Problem(s): Chronic obstructive pulmonary disease (COPD) (CMS/HCC) Current meds: albuterol nebs and inhaler, trelegy, oxygen Follows with Pulmonology Samsa * Kaylene López NP - 02/17/2025 6:07 AM EDTAssociated Problem(s): Chronic heart failure with preserved ejection fraction (CMS/HCC) Last ECHO currently in the chart is form 05/29: EF 50%, significantly elevated right sided pressure at 65 [facility] Cardiology documented in this encounterWashington University Medical CenterJrvjroclqd85-90-18[facility] Chief Complaint: Patient here for 8 mo follow up CAD and hypertension. She's been in and out of [facility] for pneumonia recently. Had echo a [...] breath since then. She has seen her salvager helper. Her chest pain is noncardiac. She [...] history of Allergic rhinitis, Anemia, Asthma, Cancer ([facility]), Chronic heart failure with preserved ejection fraction ([facility]), Chronic hypoxic respiratory failure ([facility]), Chronic kidney disease, COPD (chronic obstructive pulmonary disease) ([facility]), Coronary artery disease, Depression, Diabetes mellitus ([facility]), Dyspnea, GERD (gastroesophageal reflux disease), Hyperlipidemia, Lumbar spondylosis, Other secondary pulmonary hypertension ([facility]), Pneumonia, Primary osteoarthritis of right [...] mouth every other day., Disp: , Rfl: nlqpdqclemz-gqwecqtnn-xgvkkjxy 100-62.5-25 mcg blister with device, , Disp: [...] mg tablet, YOKO (more content not included)... [facility]03-13-2025 History of Present illness Narrative* Kaylene López [...] new atb and sputum result. 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 * Kaylene López [...] chills, +weakness, has home health Nurse from [facility] coming today, not sure if any therapy [...] ferrous sulfate 325 mg, Daily with breakfast Ywvpkdmhqmo-Ldladiqfx-Vogwao (Trelegy Ellipta) 200-62.5-25 MCG/ACT aerosol powder 1 [...] History: Diagnosis Date Alcohol screening Arthritis Asthma ([facility]/HCC) At moderate risk for fall Benign essential HTN ([facility]) Breast cancer screening by mammogram Chronic back pain greater than 3 months duration Chronic heart failure with preserved ejection fraction ([facility]) Chronic kidney disease, stage III (moderate) (HCC) ([facility]) Chronic obstructive pulmonary disease (COPD) ([facility]/HCC) Colon cancer ([facility]/HCC) Colorectal cancer ([facility]) Contact w and exposure to oth viral communicable diseases COPD exacerbation ([facility]) Coronary artery disease ([facility]/HCC) Depression ([facility]) Emphysema, unspecified ([facility]) Encounter for gynecological examination (general) (routine) without abnormal findings Essential (primary) hypertension ([facility]) Exposure to STD Gastroesophageal reflux disease General deterioration of health HPV in female Hyperlipidemia ([facility]/HCC) Hyperuricemia Intertrigo Iron deficiency anemia Low back pain Morbid obesity with BMI of 40.0-44.9, adult ([facility]) Osteoporosis screening Pneumonia Positive depression [...] 03/[address] LINN SPINAL FUSION 05/07/2003 [facility] [place] TOTAL HIP ARTHROPLASTY Left 08/30/2019 REMOVED TOTAL [...] daily for 7 day Recent hospitalization to [facility]: back to back, 01/02/25 and 01/08/25 [...] significantly elevated right sided pressure at 65 [facility] Cardiology * Kaylene López NP - 01/16/2025 [...] daily for 7 day Recent hospitalization to [facility]: back to back, 01/02/25 and 01/08/25 I have reviewed her hospital notes, labs, discharge info as well * Kaylene López NP - 01/16/2025 6:28 AM EDTAssociated Problem(s): Chronic respiratory failure with hypoxia (CMS/HCC) Is oxygen dependant, non invasive vent at night samsa documented in this [facility]03-13-2025 Instructions* Patient Instructions* Kaylene López NP - [...] and OT for home documented in this [facility]03-12-2025 History of Present illness Narrative* Kaylene López NP - 01/15/2025 6:58 PM EDTAssociated Problem(s): Pneumonia due to infectious organism Respiratory panel: culture pseudomonas Was sent home on doxy, will have her stop this, and start levoquin 750mg daily for 7 day documented in this encounterWashington University Medical [id number] History of Present illness Narrative* Kaylene López NP - 01/02/2025 3:28 PM ESTAssociated Problem(s): Flu-like symptoms Neg, still strong clinical suspicion for flu, d/t severe pulmonary conditions and weakness will send her to [facility] ER for evaluation DD: pneumonia, covid, flu, RSV * Kaylene López NP - 01/02/2025 3:26 PM ESTAssociated Problem(s): Chronic respiratory failure with hypoxia (CMS/HCC) Oxygen level 88-90% w walking, normal 94-95% w oxygen * Kaylene López NP - 01/02/2025 3:25 PM ESTAssociated Problem(s): Chronic obstructive pulmonary disease (COPD) (CMS/HCC) 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 * Kaylene López NP - 01/02/2025 2:40 PM EST Images from [...] Diarrhea started today, others have been sick [facility] salvager helper Flu Symptoms This is a new problem. [...] ferrous sulfate 325 mg, Daily with breakfast Ixkzmlpzggm-Gfarepfrj-Bdhrze (Trelegy Ellipta) 200-62.5-25 MCG/ACT aerosol powder 1 [...] Morbid obesity with BMI of 40.0-44.9, adult ([facility]) Osteoporosis screening Pneumonia Positive depression [...] 03/[address] LINN SPINAL FUSION 05/07/2003 [facility] [place] TOTAL HIP ARTHROPLASTY Left 08/30/2019 REMOVED TOTAL [...] This Visit Chronic obstructive pulmonary disease (COPD) ([facility]/HCC) [facility] salvager helper Morbid (severe) obesity due to excess calories ([facility]/HCC) Discussed with patient their BMI (actual, verses recommended). We have also discussed lifestyle modifications: attempts to perform physical activity as chronic conditions allow, also to monitor dietary intake: increasing protein/fruits/veggies and lowering carb intake (unless contraindicated). Limit sodas, juices, and sugary drinks. Essential hypertension ([facility]) DASH diet Limit caffeine Contact office if chest pain, pressure, dizziness, shortness of breath, swelling legs Recommend slow position changes Current meds: does not take any Chronic respiratory failure with hypoxia ([facility]) Oxygen level 88-90% w walking, normal 94-95% w oxygen Body mass index (BMI) 40.0-44.9, adult ([facility]) Flu-like symptoms - Primary Neg, still strong clinical suspicion for flu, d/t severe pulmonary conditions and weakness will send her to [facility] ER for evaluation DD: pneumonia, covid, flu, RSV Relevant Orders STATUS COVID-19/FLU (Completed) * Kalyene López NP - 01/02/2025 7:25 AM ESTAssociated [...] Problem(s): Chronic kidney disease, stage 3a (HCC) ([facility]/HCC) Monitor labs * Kaylene López NP - [...] 01/02/2025 7:23 AM ESTAssociated Problem(s): Essential hypertension ([facility]/HCC) DASH diet Limit caffeine Contact office if chest pain, pressure, dizziness, shortness of breath, swelling legs Recommend slow position changes Current meds: does not take any documented in this encounterWashington University Medical [id number] History of Present illness Narrative* Jessica Lazo [...] Next Visit: 6 months documented in this encounterWashington University Medical CenterUmtltfwaya19-12-1793 History of Present illness Narrative* CHRISTINE Alexander [...] ferrous sulfate 325 mg, Daily with breakfast Yyxycrdjhay-Feilrdbav-Tmupgj (Trelegy Ellipta) 200-62.5-25 MCG/ACT aerosol powder 1 [...] be necessary. Pt will consult with her Robotics Systems Engineer to see if she would be a [...] for requiring urgent evaluation. documented in this encounterWashington University Medical [id number] History of Present illness Narrative* Jessica Lazo [...] skin of chest Chest - Medial (Center) [place] macule at the biopsy site. Destr of lesion Complexity: simple Destruction method: cryotherapy Informed consent: discussed and consent obtained Informed consent comment: The risks of the procedure were discussed, including, but not limited to risks of scarring, darker or value analyst pigmentary changes, recurrence, infection, and incomplete removal [...] or tenderness. Additional details: Previous accession number: [id number] Discussed treatment options excision vs cryotherapy in detail. Patient opted for cryotherapy. Cryotherapy completed today, see procedure note. Return to clinic prior to next scheduled visit for any signs or symptoms of recurrence, reviewed the signs and symptoms. Recommended 6 month skin exam. Next Visit: as scheduled documented in this encounterWashington University Medical CenterBhnicwzqto92-39-0901 History of Present illness Narrative* Aida Reese NP - 11/28/2024 1:37 PM ESTAssociated Problem(s): Chronic obstructive pulmonary disease (COPD) ([facility]) Was admitted to [facility] for COPD with acute exacerbation. Was [...] for Hospital Follow-up. HPI Was admitted to [facility] for COPD with acute exacerbation. Was [...] This Visit Chronic obstructive pulmonary disease (COPD) ([facility]) - Primary Was admitted to [facility] for COPD with acute exacerbation. Was [...] for hospital follow up. documented in this [facility]01-23-2025 Instructions* Patient Instructions* Aida Reese NP - 11/28/2024 1:[address] Mcclain's office to see if he wants to see you for hospital follow up sooner than January. Take and finish all medications as directed. documented in this [facility]01-07-2025 History of Present illness Narrative* Aida Reese NP - 11/12/2024 11:08 AM ESTAssociated Problem(s): Chronic obstructive pulmonary disease (COPD) ([facility]) 5 days ago woke up, [...] This Visit Chronic obstructive pulmonary disease (COPD) ([facility]) - Primary 5 days ago [...] (Valtrex) 1 g tablet documented in this [facility]01-07-2025 Instructions* Patient Instructions* Aida Reese NP - [...] [facility]. documented in this [facility]12-12-2024 Note Attestation signed by Emelia Yoo MD [...] Age: 69 y.o. : 1955 Account No.: [id number] Referring physician: Dr. Bo Mcclain Chief complaint: Recurreny pneumonia HPI Diana Champion is a 69 y.o. female with PMHx of chronic hypoxic respiratory failure on 3L home O2, tracheobronchomalacia who is presenting to clinic for follow up. Patient was previously referred by Dr. Bo Mcclain of [facility] in June of 2024. Patient had been having frequent pneumonias requiring hospitalization thought to be secondary to dynamic airway collapse. Therefore we performed bronchoscopy with airway inspection on 07/02/2024 which showed severe tracheobronchomalacia with mucous plugging. She subsequently followed up post procedure and different treatment options were discussed. She was hesitant to undergo APC or tracheal bronchoplasty at [facility] and instead opted to trial CPAP [...] Diagnosis Date Allergic rhinitis Anemia Asthma Cancer ([facility]) Chronic heart failure with preserved ejection fraction ([facility]) Chronic hypoxic respiratory failure ([facility]) Chronic kidney disease COPD (chronic obstructive pulmonary disease) ([facility]) Coronary artery disease Depression Diabetes mellitus ([facility]) Dyspnea GERD (gastroesophageal reflux disease) Hyperlipidemia Lumbar spondylosis Other secondary pulmonary hypertension ([facility]) Pneumonia Primary osteoarthritis of right [...] 325 mg by bessie (more content not included)...[facility]12-10-2024 Hospital Discharge instructions Patient Education 10/15/2024 16:56:39 [...] your health care provider. General instructions Take iwel-ilo-cijkzxs and prescription medicines only as told by [...] provider. Document Revised: 07/12/2021 Document Reviewed: 07/12/2021 [employer] Patient Education 2023 [employer]. Follow Up Care 10/11/2024 14:37:09 With:JOSE ALEJANDRO MICHAUD, MAG Hester, URL Address: [address] [place] [phone] When:Within 3 Month(s) [facility] 12-10-2024 NoteUrology Office/Clinic Note Chief Complaint Aida [...] kg WT: 235.894 lb BMI: 40.27 Assessment/Plan [facility] CKD - Joana COPD/Pulm - Samsa/Omballi. Required [...] could include cysto, urodynamics, Botox, SNM. Orders: [id number] Measure Post Void residual urine and/or bladder capacity by US- non-imaging E&M of New Patient Moderate 45-59 Min 38814 Urine Culture Urnls Dip Stick Auto w/o Microscopy POC 10722 Follow-up With When Contact Information MAG BLOUNT PA-C, URL In 3 months [address] [place] [address] Additional Instructions: Patient Education Overactive [...] 1 drop(s) Allergies f (more content not included)...[facility] HospitalComment [facility]: Result Comment: Electronically Signed By: MAG BLOUNT PA-C\.br\Date and Time Signed: 10/15/2416:57 [id number] NotePatient Education Obstetrics and Gynecology Overactive Bladder, [...] health care provider. General instructions ??? Take fwuw-jmx-iszcszl and prescription medicines only as told by [...] you drink, and whe (more content not included)...[facility]12[facility] History of Present illness Narrative* CHRISTINE [...] Visit: pending biopsy results documented in this encounterWashington University Medical CenterZsnfggduvg77-60-3741 History of Present illness Narrative* Aida Reese [...] Dr. Bernard. Monitor CMP, avoid nephrotoxic agents. * Aida [...] Pulmonology- Dr. Mcclain and Dr. Yoo Cardiology- [facility] Ortho- Dr. Corrales Nephrology- Dr. [...] Ambulatory referral to Dermatology documented in this encounterWashington University Medical CenterCibbssjygo48-79-8501 Telephone encounter Note* Telephone Encounter - Rukhsana Rutherford MA - 09/03/2024 11:22 AM EDT Pt requesting a refill on her Omeprazole BECK:08/19/2024 NOV:10/09/2024 [facility] CenterZfvfwiqxfc80-73-3509 Miscellaneous Notes* Telephone Encounter - Rukhsana Rutherford MA - 09/03/2024 11:22 AM EDT Pt requesting a refill on her Omeprazole BECK:08/19/2024 NOV:10/09/2024 documented in this encounterWashington University Medical CenterUrucgpooae89-65-5484 Telephone encounter Note* Telephone Encounter - Mag [...] time getting it in last time. MAYANK [facility] CenterJigqakvlxx92-39-6890 Miscellaneous Notes* Telephone Encounter - Mag Byers [...] spelled that right) nurse phone number is [phone] or you can contact patient she said. JN documented in this encounterWashington University Medical CenterUiknbyrlqg62-50-7115 History of Present illness Narrative* Bernadine Gadruno - 08/19/2024 11:30 AM EDT Last Monday [...] HOSPITAL Hospital follow up; Was seen at [facility] 08/08/24-08/12/24 ARF; Was discharged home on [...] This Visit Moderate persistent asthma with exacerbation (CMS/[facility]) - Primary Other Visit Diagnoses Diarrhea, unspecified type Relevant Orders Clostridium difficile,EIA documented in this encounterWashington University Medical [id number] Instructions* Patient Instructions* Aida Reese NP - 08/19/2024 11:30 AM EDT Continue Augmentin. Start taking OTC probiotics Have stool culture completed to test for C.Difficile. If negative continue ATB regimen as directed. If positive we will treat accordingly. Keep all follow up appointments as scheduled. documented in this encounterWashington University Medical CenterEqxcrvxzkp80-22-1189 Note Gram Stain Evaluation This specimen is of good quality and is acceptable for routine [facility] CenterAlxyjvemhb76-10-3215 NoteGRAM STAIN EVALUATIONbacterial culture.TBFormerly Self Memorial HospitalGykapmlsvb19-51-8465 Telephone encounter Note* Telephone Encounter - Mag [...] spelled that right) nurse phone number is [phone] or you can contact patient she said. JN [facility] CenterCdstxxwklh09-41-1324 Telephone encounter Note* Telephone Encounter - Tony Butts MA - 07/16/2024 4:08 PM EDT Pt informed of lab results and provider recommendations. Pt does do chair exercises four times a week and walks (with walker) but due to her health conditions she is limited. Pt is in a wheelchair with very limited ambulation -SCR [facility] CenterBimtxpahcz05-53-5980 Miscellaneous Notes* Telephone Encounter - oTny Butts MA - 07/16/2024 4:08 PM EDT [...] To: Aida Reese NP documented in this encounterWashington University Medical CenterFqlktuqfbi99-74-6911 Telephone encounter Note* Telephone Encounter - Tony [...] 9:29 AM EDT To: Aida Reese NP [facility] [id number] Note Attestation signed by Emelia Yoo MD [...] Age: 68 y.o. : 1955 Account No.: [id number] [facility] Chief Complaint: follow [...] was initiated by the patient and conducted lbx-icwn-hy-face with use of audio-only real time telephone communication between patient and provider for a virtual visit. Verbal consent to provide and bill this service was obtained on: 07/11/24 No signature was obtained due to the COVID-19 pandemic. Past Medical History: Diagnosis Date Allergic rhinitis Anemia Asthma Cancer ([facility]) Chronic heart failure with preserved ejection fraction ([facility]) Chronic hypoxic respiratory failure ([facility]) Chronic kidney disease COPD (chronic obstructive pulmonary disease) ([facility]) Coronary artery disease Depression Diabetes mellitus ([facility]) Dyspnea GERD (gastroesophageal reflux disease) Hyperlipidemia Lumbar spondylosis Other secondary pulmonary hypertension ([facility]) Pneumonia Primary osteoarthritis of right [...] by mouth every other day. Historical Provider, oorlzsttkvp-sghqxpfsa-inpooszg 100-62.5-25 mcg blister with device Historical Provider, [...] multivitamin (Theragran-M) 9 mg (more content not included)...[facility]09-05-2024 History of Present illness Narrative* Aida Reese NP - 07/11/2024 8:57 AM EDTAssociated Problem(s): Morbid obesity with BMI of 40.0-44.9, adult ([facility]) Discussed with patient their BMI (actual, verses recommended). We have also discussed lifestyle modifications: attempts to perform physical activity as chronic conditions allow, also to monitor dietary intake: increasing protein/fruits/veggies and lowering carb intake (unless contraindicated). Limit sodas, juices, and sugary drinks. * Aida Reese NP - 07/11/2024 8:56 AM EDTAssociated Problem(s): Severe persistent asthma without complication ([facility]) Currently taking Trelegy Singulair Albuterol [...] with preserved ejection fraction (CMS/HCC) Follows Cardiology- [facility] Was seen in May 2024 Lasix [...] Pulmonology- Dr. Mcclain and Dr. Yoo Cardiology- [facility] [place] Ortho- Dr. Corrales Nephrology- Dr. Sky Was seeing Urology 5 years ago for urinary retention. Now is having mixed incontinence. Does not want referral today, would like to revisit at next visit. Was seen on 06/12/24 for Hospital follow up. Is following closely with Pulmonology; Tracheobronchomalacia HTN: Currently not taking any medications. Bp is well controlled. Averages 120's-130's. HFpEF: Follows Cardiology- [facility] Was seen in May 2024 Lasix [...] with preserved ejection fraction (CMS/HCC) Follows Cardiology- [facility] Was seen in May 2024 Lasix 20mg Relevant Orders Comprehensive metabolic panel CBC and differential Hyperlipidemia ([facility]/HCC) Currently not on any medications: Lifestyle and dietary modifications. Recheck lipid pane today. Relevant Orders Lipid panel Comprehensive metabolic panel CBC and differential Morbid obesity with BMI of 40.0-44.9, adult ([facility]) Discussed with patient their BMI (actual, verses recommended). We have also discussed lifestyle modifications: attempts to perform physical activity as chronic conditions allow, also to monitor dietary intake: increasing protein/fruits/veggies and lowering carb intake (unless contraindicated). Limit sodas, juices, and sugary drinks. Relevant Orders Comprehensive metabolic panel CBC and differential Severe persistent asthma without complication ([facility]) Currently taking Trelegy Singulair Albuterol Was seen on 06/12/24 for Hospital follow up. Is following closely with Pulmonology; Tracheobronchomalacia documented in this encounterWashington University Medical CenterWhqielbmvm19-11-6821 Instructions* Patient Instructions* Aida Reese NP - 07/11/2024 8:30 AM EDT FASTING labs ordered. Nothing to eat or drink for 12 hours prior to blood draw. Water and black coffee ok. documented in this [facility]08-27-2024 NotePatient: Diana Champion Pre-sedation Evaluation: Sedation necessary for: Analgesia Requesting service: Pulmonary History of Present Illness: Refer to H &P NUCLEAR CONTROL OPERATOR/Current Medications: Reviewed Recent sedation/surgery (24 hours): No Review of Systems: Negative NPO guidelines met: Yes Physical Exam: Airway Mallampati: II Neck ROM: full Cardiovascular (-) murmur, friction rub, carotid bruits Dental Pulmonary (+) on nasal cannula (-) tachypnea, accessory muscle use (-) wheezes, rales Plan: ASA 3 Moderate Proceed with consious sedation for [facility]ch[facility] Attestation signed by Ghulam Petersen MD at 07/08/2024 2:41 PM I was present and supervised the entire procedure PULMONARY & CRITICAL CARE MEDICINE PROCEDURE NOTE FLEXIBLE FIBEROPTIC BRONCHOSCOPY INDICATIONS AND HISTORY: Please refer to H&P PROCEDURE: Flexible Fiberoptic Bronchoscopy with airway inspection ANESTHESIA: Conscious sedation PREPROCEDURE DIAGNOSIS: Recurrent pneumonias, concern for dynamic airway collapse, chronic cough POSTPROCEDURE DIAGNOSIS: Severe tracheobronchomalacia PROCEDURE PRODUCTION ASSOCIATE: Goran Canseco ATTENDING PHYSICIAN: Dr. Ghulam Petersen [...] by trained RN and supervised by the Robotics Systems Engineer. Continuous monitoring of heart rate, respiratory rate, [...] in 1-2 weeks for treatment options for tracheobronchomalaciaChillicothe [facility]08-20-2024 Note Attestation signed by Emelia Yoo MD [...] Age: 68 y.o. : 1955 Account No.: [id number] Referring physician: Dr. Bo Mcclain Chief complaint: Recurreny pneumonia HPI Diana Champion is a 68 y.o. female with PMHx of reportedly COPD, chronic hypoxic respiratory failure on 2L home O2 who is presenting to clinic as a new patient after being referred by Dr. Bo Baker of [facility]. Patient has been admitted 4 times [...] Past Medical History: Diagnosis Date Asthma Cancer ([facility]) COPD (chronic obstructive pulmonary disease) (CMS/[facility]) Coronary artery disease GERD (gastroesophageal [...] mouth every other day. Yes Historical Provider, jybtenrfmfo-anpuvvcxj-phmkzomi 100-62.5-25 mcg blister with device Yes Historical [...] mEq ER ta (more content not included)... [facility]07-08-2024 [facility] Cardiology Clinic Note Chief Complaint: Patient here for 1 year follow up CAD and hypertension. She was recently discharged from [facility] for Covid-19. She says hydrochlorothiazide was [...] breath since then. She has seen her salvager helper. Her chest pain is noncardiac. She [...] a past medical history of Asthma, Cancer ([facility]), COPD (chronic obstructive pulmonary disease) ([facility]), Coronary artery disease, GERD (gastroesophageal [...] mouth every other day., Disp: , Rfl: jqoweythocn-ykjmphdil-nuznsond 100-62.5-25 mcg blister with device, , Disp: [...] Physical Examination: GENERAL: a (more content not included)...[facility] 09-07-2023 Evaluation note* Encounter Date Diagnosis Assessment Notes Treatment Notes Treatment Clinical Notes Sep, Hypomagnesemia (ICD-10 - E83.42) [place] [facility] Other 10-23-2023 Evaluation note* Encounter Date Diagnosis Assessment Notes Treatment Notes Treatment Clinical Notes Aug, Nico guillen kid w cr kid I-IV (ICD-10 - I12.9) [place] [facility] Other 10-12-2023 Evaluation note* Encounter Date Diagnosis [...] PPI induced GI losses. Continue oral Magnesium [employer] Other 05-19-2023 NotePROCEDURE: XR HIP RT 2 3V W PELVIS HISTORY: Pain in right hip joint , chronic COMPARISON: XR L-spine 02/26/2019, XR left hip with pelvis 03/11/2017 FINDINGS: BONES:Complete loss of the right hip joint space with fjod-du-xsuq articulation, subchondral sclerosis and cysts, and large periarticular degenerative osteophytes. No fracture or dislocation. Left hip replacement. Mechanical fusion of L5-S1 and moderate dextroscoliosis of lumbar spine. SOFT TISSUES:No visible soft tissue swelling. EFFUSION:None visible. OTHER: Negative. IMPRESSION: 1. Marked degenerative joint disease of the right hip; progressed since prior study. 2. Stable surgical changes. Electronically authenticated by: STEPH GRANADOS Date: 2023-03-24 12:55[facility]04-27-2023 Evaluation note* Encounter Date Diagnosis [...] PPI induced GI losses. Continue oral Magnesium [facility] Other 02-02-[address] [facility]* Encounter Date Diagnosis Assessment Notes Treatment Notes Treatment Clinical Notes Nov, Hypokalemia (ICD-10 - E87.6) Nov,Hypomagnesemia (ICD-10 - E83.42) [facility] Other 10-04-2022 Evaluation note* Encounter Date Diagnosis [...] office does not accept her new insurance. [employer] Other 09-02-2022 Evaluation note* Encounter Date Diagnosis Assessment Notes Treatment Notes Treatment Clinical Notes Jul, History of colon cancer (ICD-10 - Z85.038) [employer] Other 01-12-2022 Evaluation note* Encounter Date Diagnosis [...] potassium wasting. I have prescribed oral potassium. [employer] Other 10-25-2021 Evaluation note* Encounter Date Diagnosis [...] [facility] document [employer] Other Evaluation + Plan note Future Appointments Appointment Date:01/13/2025 09:40:00 AM Scheduled Provider:MAG BLOUNT PA-C Location:[facility] Appointment Type:URO Office Visit Diagnostic Tests Pending * Urine Culture 10/15/24 [facility] Evaluation + Plan note Future Appointments Appointment Date:01/13/2025 09:40:00 AM Scheduled Provider:MAG BLOUNT PA-C Location:[facility] Appointment Type:URO Office Visit [facility] evaluation + Plan note Future Appointments Appointment Date:06/23/2025 09:40:00 AM Scheduled Provider:MAG BLOUNT PA-C Location:[facility] Appointment Type:URO Office Visit [facility] evaluation + Plan note Future Appointments Appointment Date:07/08/2025 02:30:00 PM Scheduled Provider:Amalia Stephens PA-C Location:[facility] Appointment Type:URO Office Visit [facility] evaluation + Plan note Future Appointments Appointment Date:09/23/2025 08:00:00 AM Scheduled Provider:Amalia Stephens PA-C Location:[facility] Appointment Type:URO Office Visit [facility] evaluation noteNo [facility] [facility] Other evaluation note* Diagnosis Onset Date Resolution Status History of colon cancer acute [facility] Work Phone: evaluation note* Diagnosis Onset Date Resolution Status Hypokalemia acuteHypomagnesemiaacuteStage 3 chronic kidney diseaseacuteCOVIDnoneactive Pneumonianoneactive [facility] Work Phone: evaluation note* Diagnosis Moderate persistent asthma with exacerbation ([facility]/HCC)- Primary Unspecified asthma, with exacerbation Non-recurrent acute suppurative otitis media of both ears without spontaneous rupture of tympanic membranes Colorectal cancer ([facility]/HCC) Malignant neoplasm of colon, unspecified site Chronic heart failure with preserved ejection fraction ([facility]/HCC) Pulmonary emphysema, unspecified emphysema type ([facility]/HCC) Moderate episode of recurrent major depressive disorder ([facility])- Primary Moderate persistent asthma with exacerbation ([facility]) Unspecified asthma, with exacerbation Medicare annual wellness visit, subsequent Severe persistent asthma with acute exacerbation ([facility])- Primary Hospital discharge follow-up Other follow-up examination Severe persistent asthma without complication ([facility]/HCC)- Primary Essential hypertension ([facility]) Unspecified essential hypertension JEANNE (acute kidney injury) ([facility]) Leukocytosis, unspecified type Chronic respiratory failure with hypoxia ([facility]) Chronic bilateral low back pain without sciatica- Primary Vitamin D deficiency Chronic bilateral low back pain without sciatica- Primary Pneumonia due to infectious organism, unspecified laterality, unspecified part of lung- Primary Screening mammogram for breast cancer Chronic respiratory failure with hypoxia ([facility]) Pulmonary emphysema, unspecified emphysema type ([facility]) Essential hypertension ([facility]) Unspecified essential hypertension Morbid obesity with BMI of 40.0-44.9, adult ([facility]) Hospital discharge follow-up- Primary Other follow-up examination Chronic respiratory failure with hypoxia ([facility]) Severe persistent asthma without complication ([facility]) Severe persistent asthma with acute exacerbation ([facility])- Primary Severe persistent asthma with exacerbation ([facility])- Primary Unspecified asthma, with exacerbation Hospital discharge follow-up- Primary Other follow-up examination Chronic respiratory failure with hypoxia ([facility])- Primary Hospital discharge follow-up Other follow-up examination Benign essential HTN ([facility]) Chronic heart failure with preserved ejection fraction ([facility]) Severe persistent asthma without complication ([facility]) Moderate mixed hyperlipidemia not requiring statin therapy ([facility]) Morbid obesity with BMI of 40.0-44.9, adult ([facility]) Opioid use Chronic, continuous use of opioids Chronic back pain greater than 3 months duration Moderate persistent asthma with exacerbation ([facility])- Primary Unspecified asthma, with exacerbation Diarrhea, unspecified type documented in this encounter [facility] HealthcareEvaluation note* Diagnosis Moderate persistent asthma with exacerbation ([facility])- Primary Unspecified asthma, with exacerbation Non-recurrent acute suppurative otitis media of both ears without spontaneous rupture of tympanic membranes Colorectal cancer ([facility]) Malignant neoplasm of colon, unspecified site Chronic heart failure with preserved ejection fraction ([facility]) Pulmonary emphysema, unspecified emphysema type ([facility]/HCC) Moderate episode of recurrent major depressive disorder ([facility])- Primary Moderate persistent asthma with exacerbation ([facility]) Unspecified asthma, with exacerbation Medicare annual wellness visit, subsequent Severe persistent asthma with acute exacerbation ([facility])- Primary Hospital discharge follow-up Other follow-up examination Severe persistent asthma without complication ([facility]/HCC)- Primary Essential hypertension ([facility]) Unspecified essential hypertension JEANNE (acute kidney injury) ([facility]) Leukocytosis, unspecified type Chronic respiratory failure with hypoxia ([facility]) Chronic bilateral low back pain without sciatica- Primary Vitamin D deficiency Chronic bilateral low back pain without sciatica- Primary Pneumonia due to infectious organism, unspecified laterality, unspecified part of lung- Primary Screening mammogram for breast cancer Chronic respiratory failure with hypoxia ([facility]) Pulmonary emphysema, unspecified emphysema type ([facility]) Essential hypertension ([facility]) Unspecified essential hypertension Morbid obesity with BMI of 40.0-44.9, adult ([facility]) Hospital discharge follow-up- Primary Other follow-up examination Chronic respiratory failure with hypoxia ([facility]) Severe persistent asthma without complication ([facility]) Severe persistent asthma with acute exacerbation ([facility])- Primary Severe persistent asthma with exacerbation ([facility])- Primary Unspecified asthma, with exacerbation Hospital discharge follow-up- Primary Other follow-up examination Chronic respiratory failure with hypoxia ([facility])- Primary Hospital discharge follow-up Other follow-up examination Benign essential HTN ([facility]) Chronic heart failure with preserved ejection fraction ([facility]) Severe persistent asthma without complication ([facility]) Moderate mixed hyperlipidemia not requiring statin therapy ([facility]) Morbid obesity with BMI of 40.0-44.9, adult ([facility]) Opioid use Chronic, continuous use of opioids Chronic back pain greater than 3 months duration Restless leg syndrome Restless legs syndrome (RLS) documented in this encounter [facility]* Diagnosis Moderate persistent asthma with exacerbation ([facility])- Primary Unspecified asthma, with exacerbation Non-recurrent acute suppurative otitis media of both ears without spontaneous rupture of tympanic membranes Colorectal cancer ([facility]) Malignant neoplasm of colon, unspecified site Chronic heart failure with preserved ejection fraction ([facility]) Pulmonary emphysema, unspecified emphysema type ([facility]) Moderate episode of recurrent major depressive disorder ([facility])- Primary Moderate persistent asthma with exacerbation (CMS/HCC) Unspecified asthma, with exacerbation Medicare annual wellness visit, subsequent Severe persistent asthma with acute exacerbation ([facility]/HCC)- Primary Hospital discharge follow-up Other follow-up examination Severe persistent asthma without complication (CMS/HCC)- Primary Essential hypertension (CMS/HCC) Unspecified essential hypertension JEANNE (acute kidney injury) ([facility]/HCC) Leukocytosis, unspecified type Chronic respiratory failure with hypoxia (CMS/HCC) Chronic bilateral low back pain without sciatica- Primary Vitamin D deficiency Chronic bilateral low back pain without sciatica- Primary Pneumonia due to infectious organism, unspecified laterality, unspecified part of lung- Primary Screening mammogram for breast cancer Chronic respiratory failure with hypoxia (CMS/HCC) Pulmonary emphysema, unspecified emphysema type ([facility]/HCC) Essential hypertension ([facility]/HCC) Unspecified essential hypertension Morbid obesity with BMI of 40.0-44.9, adult ([facility]) Hospital discharge follow-up- Primary Other follow-up examination Chronic respiratory failure with hypoxia (CMS/HCC) Severe persistent asthma without complication ([facility]/HCC) Severe persistent asthma with acute exacerbation ([facility]/HCC)- Primary Severe persistent asthma with exacerbation ([facility]/HCC)- Primary Unspecified asthma, with exacerbation Hospital discharge follow-up- Primary Other follow-up examination Chronic respiratory failure with hypoxia ([facility]/HCC)- Primary Hospital discharge follow-up Other follow-up examination Benign essential HTN ([facility]/HCC) Chronic heart failure with preserved ejection fraction ([facility]/HCC) Severe persistent asthma without complication ([facility]/HCC) Moderate mixed hyperlipidemia not requiring statin therapy ([facility]/HCC) Morbid obesity with BMI of 40.0-44.9, adult ([facility]) Opioid use Chronic, continuous use of opioids Chronic back pain greater than 3 months duration Gastroesophageal reflux disease without esophagitis Esophageal reflux documented in this encounter [facility] HealthcareEvaluation noteNo assessment information available[facility] Phone: Evaluation note* Diagnosis Moderate persistent asthma with exacerbation ([facility]/HCC)- Primary Unspecified asthma, with exacerbation Non-recurrent acute suppurative otitis media of both ears without spontaneous rupture of tympanic membranes Colorectal cancer ([facility]/HCC) Malignant neoplasm of colon, unspecified site Chronic heart failure with preserved ejection fraction ([facility]/HCC) Pulmonary emphysema, unspecified emphysema type ([facility]/HCC) Moderate episode of recurrent major depressive disorder ([facility]/HCC)- Primary Moderate persistent asthma with exacerbation ([facility]/HCC) Unspecified asthma, with exacerbation Medicare annual wellness visit, subsequent Severe persistent asthma with acute exacerbation ([facility]/HCC)- Primary Hospital discharge follow-up Other follow-up examination Severe persistent asthma without complication ([facility]/HCC)- Primary Essential hypertension ([facility]) Unspecified essential hypertension JEANNE (acute kidney injury) ([facility]) Leukocytosis, unspecified type Chronic respiratory failure with hypoxia ([facility]) Chronic bilateral low back pain without sciatica- Primary Vitamin D deficiency Chronic bilateral low back pain without sciatica- Primary Pneumonia due to infectious organism, unspecified laterality, unspecified part of lung- Primary Screening mammogram for breast cancer Chronic respiratory failure with hypoxia ([facility]) Pulmonary emphysema, unspecified emphysema type ([facility]) Essential hypertension ([facility]) Unspecified essential hypertension Morbid obesity with BMI of 40.0-44.9, adult ([facility]) Hospital discharge follow-up- Primary Other follow-up examination Chronic respiratory failure with hypoxia ([facility]) Severe persistent asthma without complication ([facility]) Severe persistent asthma with acute exacerbation ([facility])- Primary Severe persistent asthma with exacerbation ([facility])- Primary Unspecified asthma, with exacerbation Hospital discharge follow-up- Primary Other follow-up examination Chronic respiratory failure with hypoxia ([facility])- Primary Hospital discharge follow-up Other follow-up examination Benign essential HTN ([facility]) Chronic heart failure with preserved ejection fraction ([facility]) Severe persistent asthma without complication ([facility]) Moderate mixed hyperlipidemia not requiring statin therapy ([facility]) Morbid obesity with BMI of 40.0-44.9, adult ([facility]) Opioid use Chronic, continuous use of opioids Chronic back pain greater than 3 months duration Vaginal guero- Primary Candidiasis of vulva and vagina documented in this encounter [facility] HealthcareEvaluation note* Diagnosis Moderate persistent asthma with exacerbation ([facility])- Primary Unspecified asthma, with exacerbation Non-recurrent acute suppurative otitis media of both ears without spontaneous rupture of tympanic membranes Colorectal cancer ([facility]) Malignant neoplasm of colon, unspecified site Chronic heart failure with preserved ejection fraction ([facility]) Pulmonary emphysema, unspecified emphysema type ([facility]) Moderate episode of recurrent major depressive disorder ([facility])- Primary Moderate persistent asthma with exacerbation ([facility]) Unspecified asthma, with exacerbation Medicare annual wellness visit, subsequent Severe persistent asthma with acute exacerbation ([facility]/HCC)- Primary Hospital discharge follow-up Other follow-up examination Severe persistent asthma without complication ([facility]/HCC)- Primary Essential hypertension ([facility]/HCC) Unspecified essential hypertension JEANNE (acute kidney injury) ([facility]/HCC) Leukocytosis, unspecified type Chronic respiratory failure with hypoxia (CMS/HCC) Chronic bilateral low back pain without sciatica- Primary Vitamin D deficiency Chronic bilateral low back pain without sciatica- Primary Pneumonia due to infectious organism, unspecified laterality, unspecified part of lung- Primary Screening mammogram for breast cancer Chronic respiratory failure with hypoxia ([facility]/HCC) Pulmonary emphysema, unspecified emphysema type ([facility]/HCC) Essential hypertension ([facility]/HCC) Unspecified essential hypertension Morbid obesity with BMI of 40.0-44.9, adult ([facility]) Hospital discharge follow-up- Primary Other follow-up examination Chronic respiratory failure with hypoxia (CMS/HCC) Severe persistent asthma without complication ([facility]/HCC) Severe persistent asthma with acute exacerbation ([facility]/HCC)- Primary Severe persistent asthma with exacerbation ([facility]/HCC)- Primary Unspecified asthma, with exacerbation Hospital discharge follow-up- Primary Other follow-up examination Chronic respiratory failure with hypoxia ([facility])- Primary Hospital discharge follow-up Other follow-up examination Benign essential HTN ([facility]) Chronic heart failure with preserved ejection fraction ([facility]/HCC) Severe persistent asthma without complication ([facility]/HCC) Moderate mixed hyperlipidemia not requiring statin therapy ([facility]) Morbid obesity with BMI of 40.0-44.9, adult ([facility]) Opioid use Chronic, continuous use of opioids Chronic back pain greater than 3 months duration Restless leg syndrome Restless legs syndrome (RLS) documented in this encounter [facility] HealthcareEvaluation note* Diagnosis Moderate persistent asthma with exacerbation ([facility]/HCC)- Primary Unspecified asthma, with exacerbation Non-recurrent acute suppurative otitis media of both ears without spontaneous rupture of tympanic membranes Colorectal cancer ([facility]/HCC) Malignant neoplasm of colon, unspecified site Chronic heart failure with preserved ejection fraction ([facility]/HCC) Pulmonary emphysema, unspecified emphysema type ([facility]/HCC) Moderate episode of recurrent major depressive disorder ([facility])- Primary Moderate persistent asthma with exacerbation ([facility]/HCC) Unspecified asthma, with exacerbation Medicare annual wellness visit, subsequent Severe persistent asthma with acute exacerbation ([facility]/HCC)- Primary Hospital discharge follow-up Other follow-up examination [...] Morbid obesity with BMI of 40.0-44.9, adult ([facility]) Hospital discharge follow-up- Primary Other follow-up examination Chronic respiratory failure with hypoxia (CMS/HCC) Severe persistent asthma without complication (CMS/HCC) Severe persistent asthma with acute exacerbation (CMS/HCC)- Primary Severe persistent asthma with exacerbation ([facility]/HCC)- Primary Unspecified asthma, with exacerbation Hospital discharge follow-up- Primary Other follow-up examination Chronic respiratory failure with hypoxia (CMS/HCC)- Primary Hospital discharge follow-up Other follow-up examination Benign essential HTN (CMS/HCC) Chronic heart failure with preserved ejection fraction (CMS/HCC) Severe persistent asthma without complication (CMS/HCC) Moderate mixed hyperlipidemia not requiring statin therapy ([facility]/HCC) Morbid obesity with BMI of 40.0-44.9, adult ([facility]) Opioid use Chronic, continuous use of opioids Chronic back pain greater than 3 months duration Urge incontinence- Primary Morbid obesity with BMI of 40.0-44.9, adult ([facility]) 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 Stage 3a chronic kidney disease (HCC) ([facility]/HCC) Chronic respiratory failure with hypoxia (CMS/HCC) documented in this encounter [facility] HealthcareEvaluation note* Diagnosis Moderate persistent asthma with exacerbation (CMS/HCC)- Primary Unspecified asthma, with exacerbation Non-recurrent acute suppurative otitis media of both ears without spontaneous rupture of tympanic membranes Colorectal cancer ([facility]/HCC) Malignant neoplasm of colon, unspecified site Chronic heart failure with preserved ejection fraction (CMS/HCC) Pulmonary emphysema, unspecified emphysema type (CMS/HCC) Moderate episode of recurrent major depressive disorder (CMS/HCC)- Primary Moderate persistent asthma with exacerbation (CMS/HCC) Unspecified asthma, with exacerbation Medicare annual wellness visit, subsequent Severe persistent asthma with acute exacerbation ([facility]/HCC)- Primary Hospital discharge follow-up Other follow-up examination Severe persistent asthma without complication (CMS/HCC)- Primary Essential hypertension ([facility]/HCC) Unspecified essential hypertension JEANNE (acute kidney injury) ([facility]) Leukocytosis, unspecified type Chronic respiratory failure with hypoxia ([facility]/HCC) Chronic bilateral low back pain without sciatica- Primary Vitamin D deficiency Chronic bilateral low back pain without sciatica- Primary Pneumonia due to infectious organism, unspecified laterality, unspecified part of lung- Primary Screening mammogram for breast cancer Chronic respiratory failure with hypoxia (CMS/HCC) Pulmonary emphysema, unspecified emphysema type ([facility]/HCC) Essential hypertension ([facility]/HCC) Unspecified essential hypertension Morbid obesity with BMI of 40.0-44.9, adult ([facility]) Hospital discharge follow-up- Primary Other follow-up examination Chronic respiratory failure with hypoxia (CMS/HCC) Severe persistent asthma without complication ([facility]/HCC) Severe persistent asthma with acute exacerbation ([facility]/HCC)- Primary Severe persistent asthma with exacerbation ([facility]/HCC)- Primary Unspecified asthma, with exacerbation Hospital discharge follow-up- Primary Other follow-up examination Chronic respiratory failure with hypoxia ([facility]/HCC)- Primary Hospital discharge follow-up Other follow-up examination Benign essential HTN ([facility]) Chronic heart failure with preserved ejection fraction ([facility]/HCC) Severe persistent asthma without complication ([facility]/HCC) Moderate mixed hyperlipidemia not requiring statin therapy ([facility]) Morbid obesity with BMI of 40.0-44.9, adult ([facility]) Opioid use Chronic, continuous use of opioids Chronic back pain greater than 3 months duration Urge incontinence- Primary Morbid obesity with BMI of 40.0-44.9, adult ([facility]) 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 Stage 3a chronic kidney disease (HCC) ([facility]) Chronic respiratory failure with hypoxia ([facility]) Neoplasm of unspecified behavior of bone, soft tissue, and skin- Primary documented in this encounter [facility] HealthcareEvaluation note* Diagnosis Moderate persistent asthma with exacerbation (CMS/HCC)- Primary Unspecified asthma, with exacerbation Non-recurrent acute suppurative otitis media of both ears without spontaneous rupture of tympanic membranes Colorectal cancer ([facility]/HCC) Malignant neoplasm of colon, unspecified site Chronic heart failure with preserved ejection fraction ([facility]/HCC) Pulmonary emphysema, unspecified emphysema type (CMS/HCC) Moderate episode of recurrent major depressive disorder (CMS/HCC)- Primary Moderate persistent asthma with exacerbation ([facility]/HCC) Unspecified asthma, with exacerbation Medicare annual wellness visit, subsequent Severe persistent asthma with acute exacerbation ([facility]/HCC)- Primary Hospital discharge follow-up Other follow-up examination Severe persistent asthma without complication (CMS/HCC)- Primary Essential hypertension (CMS/HCC) Unspecified essential hypertension JEANNE (acute kidney injury) ([facility]) Leukocytosis, unspecified type Chronic respiratory failure with hypoxia (CMS/HCC) Chronic bilateral low back pain without sciatica- Primary Vitamin D deficiency Chronic bilateral low back pain without sciatica- Primary Pneumonia due to infectious organism, unspecified laterality, unspecified part of lung- Primary Screening mammogram for breast cancer Chronic respiratory failure with hypoxia (CMS/HCC) Pulmonary emphysema, unspecified emphysema type ([facility]/HCC) Essential hypertension ([facility]/HCC) Unspecified essential hypertension Morbid obesity with BMI of 40.0-44.9, adult ([facility]) Hospital discharge follow-up- Primary Other follow-up examination Chronic respiratory failure with hypoxia (CMS/HCC) Severe persistent asthma without complication (CMS/HCC) Severe persistent asthma with acute exacerbation (CMS/HCC)- Primary Severe persistent asthma with exacerbation ([facility]/HCC)- Primary Unspecified asthma, with exacerbation Hospital discharge follow-up- Primary Other follow-up examination Chronic respiratory failure with hypoxia ([facility]/HCC)- Primary Hospital discharge follow-up Other follow-up examination Benign essential HTN ([facility]/HCC) Chronic heart failure with preserved ejection fraction ([facility]/HCC) Severe persistent asthma without complication ([facility]/HCC) Moderate mixed hyperlipidemia not requiring statin therapy ([facility]) Morbid obesity with BMI of 40.0-44.9, adult ([facility]) Opioid use Chronic, continuous use of opioids Chronic back pain greater than 3 months duration Urge incontinence- Primary Morbid obesity with BMI of 40.0-44.9, adult ([facility]) 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 Stage 3a chronic kidney disease (HCC) ([facility]) Chronic respiratory failure with hypoxia ([facility]) Urge incontinence documented in this encounter [facility] HealthcareEvaluation note* Diagnosis Moderate persistent asthma with exacerbation ([facility]/HCC)- Primary Unspecified asthma, with exacerbation Non-recurrent acute [...] depressive disorder (CMS/HCC) documented in this encounter [facility] HealthcareEvaluation note* Diagnosis Benign essential HTN (CMS/HCC)- Primary Chronic heart failure with preserved ejection fraction (CMS/HCC) Severe persistent asthma without complication (CMS/HCC) Moderate mixed hyperlipidemia not requiring statin therapy (CMS/HCC) Morbid obesity with BMI of 40.0-44.9, adult ([facility]) documented in this encounter [facility] HealthcareEvaluation note* Diagnosis Chronic bilateral low back pain without sciatica documented in this encounter [facility] HealthcareEvaluation note* Diagnosis Moderate episode of recurrent major depressive disorder (HCC) ([facility]) Urge incontinence documented in this encounter [facility] HealthcareEvaluation note* Diagnosis Moderate persistent asthma [...] (CMS/HCC)- Primary Moderate persistent asthma with exacerbation ([facility]/HCC) Unspecified asthma, with exacerbation Medicare annual wellness visit, subsequent Severe persistent asthma with acute exacerbation ([facility]/HCC)- Primary Hospital discharge follow-up Other follow-up examination [...] Morbid obesity with BMI of 40.0-44.9, adult ([facility]) Hospital discharge follow-up- Primary Other [...] fraction (CMS/HCC) Severe persistent asthma without complication ([facility]/HCC) Moderate mixed hyperlipidemia not requiring statin therapy ([facility]/HCC) Morbid obesity with BMI of 40.0-44.9, adult ([facility]) Opioid use Chronic, continuous use of opioids Chronic back pain greater than 3 months duration Urge incontinence- Primary Morbid obesity with BMI of 40.0-44.9, adult ([facility]) 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 Stage 3a chronic kidney disease (HCC) ([facility]/HCC) Chronic respiratory failure with hypoxia ([facility]/HCC) Moderate episode of recurrent major depressive disorder ([facility]) Restless leg syndrome Restless legs syndrome (RLS) documented in this encounter [facility] HealthcareEvaluation note* Diagnosis Moderate persistent asthma with exacerbation ([facility]/HCC)- Primary Unspecified asthma, with exacerbation Non-recurrent acute suppurative otitis media of both ears without spontaneous rupture of tympanic membranes Colorectal cancer ([facility]) Malignant neoplasm of colon, unspecified site Chronic heart failure with preserved ejection fraction ([facility]/HCC) Pulmonary emphysema, unspecified emphysema type (CMS/HCC) Moderate episode of recurrent major depressive disorder ([facility]/HCC)- Primary Moderate persistent asthma with exacerbation ([facility]) Unspecified asthma, with exacerbation Medicare annual wellness visit, subsequent Severe persistent asthma with acute exacerbation ([facility]/HCC)- Primary Hospital discharge follow-up Other follow-up examination Severe persistent asthma without complication (CMS/HCC)- Primary Essential hypertension ([facility]/HCC) Unspecified essential hypertension JEANNE (acute kidney injury) ([facility]) Leukocytosis, unspecified type Chronic respiratory failure with hypoxia ([facility]/HCC) Chronic bilateral low back pain without sciatica- Primary Vitamin D deficiency Chronic bilateral low back pain without sciatica- Primary Pneumonia due to infectious organism, unspecified laterality, unspecified part of lung- Primary Screening mammogram for breast cancer Chronic respiratory failure with hypoxia (CMS/HCC) Pulmonary emphysema, unspecified emphysema type ([facility]/HCC) Essential hypertension ([facility]/HCC) Unspecified essential hypertension Morbid obesity with BMI of 40.0-44.9, adult ([facility]) Hospital discharge follow-up- Primary Other follow-up examination Chronic respiratory failure with hypoxia (CMS/HCC) Severe persistent asthma without complication (CMS/HCC) Severe persistent asthma with acute exacerbation ([facility]/HCC)- Primary Severe persistent asthma with exacerbation (CMS/HCC)- Primary Unspecified asthma, with exacerbation Hospital discharge follow-up- Primary Other follow-up examination Chronic respiratory failure with hypoxia ([facility]/HCC)- Primary Hospital discharge follow-up Other follow-up examination Benign essential HTN ([facility]/HCC) Chronic heart failure with preserved ejection fraction (CMS/HCC) Severe persistent asthma without complication (CMS/HCC) Moderate mixed hyperlipidemia not requiring statin therapy ([facility]) Morbid obesity with BMI of 40.0-44.9, adult ([facility]) Opioid use Chronic, continuous use of opioids Chronic back pain greater than 3 months duration Urge incontinence- Primary Morbid obesity with BMI of 40.0-44.9, adult ([facility]) 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 Stage 3a chronic kidney disease (HCC) ([facility]) Chronic respiratory failure with hypoxia ([facility]) Chronic obstructive pulmonary disease with acute lower respiratory infection ([facility])- Primary Primary HSV infection of mouth documented in this encounter [facility] HealthcareEvaluation note* Diagnosis Moderate persistent asthma with exacerbation ([facility]/HCC)- Primary Unspecified asthma, with exacerbation Non-recurrent acute suppurative otitis media of both ears without spontaneous rupture of tympanic membranes Colorectal cancer ([facility]) Malignant neoplasm of colon, unspecified site Chronic heart failure with preserved ejection fraction ([facility]) Pulmonary emphysema, unspecified emphysema type ([facility]/HCC) Moderate episode of recurrent major depressive disorder ([facility]/HCC)- Primary Moderate persistent asthma with exacerbation ([facility]) Unspecified asthma, with exacerbation Medicare annual wellness visit, subsequent Severe persistent asthma with acute exacerbation ([facility])- Primary Hospital discharge follow-up Other follow-up examination Severe persistent asthma without complication ([facility]/HCC)- Primary Essential hypertension ([facility]/HCC) Unspecified essential hypertension JEANNE (acute kidney injury) ([facility]) Leukocytosis, unspecified type Chronic respiratory failure with hypoxia ([facility]/HCC) Chronic bilateral low back pain without sciatica- Primary Vitamin D deficiency Chronic bilateral low back pain without sciatica- Primary Pneumonia due to infectious organism, unspecified laterality, unspecified part of lung- Primary Screening mammogram for breast cancer Chronic respiratory failure with hypoxia (CMS/HCC) Pulmonary emphysema, unspecified emphysema type ([facility]/HCC) Essential hypertension ([facility]/HCC) Unspecified essential hypertension Morbid obesity with BMI of 40.0-44.9, adult ([facility]/HCC) Hospital discharge follow-up- Primary Other follow-up examination [...] Morbid obesity with BMI of 40.0-44.9, adult ([facility]/HCC) Opioid use Chronic, continuous use of opioids Chronic back pain greater than 3 months duration Urge incontinence- Primary Morbid obesity with BMI of 40.0-44.9, adult ([facility]) 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 Stage 3a chronic kidney disease (HCC) ([facility]/HCC) Chronic respiratory failure with hypoxia ([facility]/HCC) Chronic obstructive pulmonary disease with acute lower respiratory infection ([facility]/HCC)- Primary Primary HSV infection of mouth Pulmonary emphysema, unspecified emphysema type ([facility]/HCC)- Primary documented in this encounter [facility] [...] subsequent Severe persistent asthma with acute exacerbation ([facility]/HCC)- Primary Hospital discharge follow-up Other follow-up examination [...] Morbid obesity with BMI of 40.0-44.9, adult ([facility]) Opioid use Chronic, continuous use of opioids Chronic back pain greater than 3 months duration Urge incontinence- Primary Morbid obesity with BMI of 40.0-44.9, adult ([facility]) 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 Stage 3a chronic kidney disease (HCC) (CMS/HCC) Chronic respiratory failure with hypoxia (CMS/HCC) Chronic obstructive pulmonary disease with acute lower respiratory infection (CMS/HCC)- Primary Primary HSV infection of mouth Pulmonary emphysema, unspecified emphysema type (CMS/HCC)- Primary Gastroesophageal reflux disease without esophagitis Esophageal reflux documented in this encounter [facility]* Diagnosis Moderate persistent asthma with [...] Unspecified essential hypertension JEANNE (acute kidney injury) ([facility]/HCC) Leukocytosis, unspecified type Chronic respiratory failure with hypoxia ([facility]/HCC) Chronic bilateral low back pain without sciatica- Primary Vitamin D deficiency Chronic bilateral low back pain without sciatica- Primary Pneumonia due to infectious organism, unspecified laterality, unspecified part of lung- Primary Screening mammogram for breast cancer Chronic respiratory failure with hypoxia (CMS/HCC) Pulmonary emphysema, unspecified emphysema type ([facility]/HCC) Essential hypertension ([facility]/HCC) Unspecified essential hypertension Morbid obesity with BMI of 40.0-44.9, adult ([facility]) Hospital discharge follow-up- Primary Other follow-up examination Chronic respiratory failure with hypoxia (CMS/HCC) Severe persistent asthma without complication ([facility]/HCC) Severe persistent asthma with acute exacerbation ([facility]/HCC)- Primary Severe persistent asthma with exacerbation ([facility]/HCC)- Primary Unspecified asthma, with exacerbation Hospital discharge follow-up- Primary Other follow-up examination Chronic respiratory failure with hypoxia ([facility])- Primary Hospital discharge follow-up Other follow-up examination Benign essential HTN ([facility]) Chronic heart failure with preserved ejection fraction ([facility]/HCC) Severe persistent asthma without complication ([facility]/HCC) Moderate mixed hyperlipidemia not requiring statin therapy ([facility]) Morbid obesity with BMI of 40.0-44.9, adult ([facility]) Opioid use Chronic, continuous use of opioids Chronic back pain greater than 3 months duration Urge incontinence- Primary Morbid obesity with BMI of 40.0-44.9, adult ([facility]) 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 Stage 3a chronic kidney disease (HCC) ([facility]) Chronic respiratory failure with hypoxia ([facility]) Chronic obstructive pulmonary disease with acute lower respiratory infection ([facility])- Primary Primary HSV infection of mouth Pulmonary emphysema, unspecified emphysema type ([facility]/HCC)- Primary Restless leg syndrome Restless legs syndrome (RLS) documented in this encounter [facility]* Diagnosis Moderate persistent asthma with exacerbation ([facility]/HCC)- Primary Unspecified asthma, with exacerbation Non-recurrent acute suppurative otitis media of both ears without spontaneous rupture of tympanic membranes Colorectal cancer ([facility]/HCC) Malignant neoplasm of colon, unspecified site Chronic heart failure with preserved ejection fraction (CMS/HCC) Pulmonary emphysema, unspecified emphysema type ([facility]/HCC) Moderate episode of recurrent major depressive disorder (CMS/HCC)- Primary Moderate persistent asthma with exacerbation (CMS/HCC) Unspecified asthma, with exacerbation Medicare annual wellness visit, subsequent Severe persistent asthma with acute exacerbation ([facility]/HCC)- Primary Hospital discharge follow-up Other follow-up examination Severe persistent asthma without complication (CMS/HCC)- Primary Essential hypertension (CMS/HCC) Unspecified essential hypertension JEANNE (acute kidney injury) ([facility]) Leukocytosis, unspecified type Chronic respiratory failure with hypoxia ([facility]) Chronic bilateral low back pain without sciatica- Primary Vitamin D deficiency Chronic bilateral low back pain without sciatica- Primary Pneumonia due to infectious organism, unspecified laterality, unspecified part of lung- Primary Screening mammogram for breast cancer Chronic respiratory failure with hypoxia ([facility]) Pulmonary emphysema, unspecified emphysema type ([facility]) Essential hypertension ([facility]) Unspecified essential hypertension Morbid obesity with BMI of 40.0-44.9, adult ([facility]) Hospital discharge follow-up- Primary Other follow-up examination Chronic respiratory failure with hypoxia ([facility]/HCC) Severe persistent asthma without complication ([facility]/HCC) Severe persistent asthma with acute exacerbation ([facility]/HCC)- Primary Severe persistent asthma with exacerbation ([facility]/HCC)- Primary Unspecified asthma, with exacerbation Hospital discharge follow-up- Primary Other follow-up examination Chronic respiratory failure with hypoxia ([facility])- Primary Hospital discharge follow-up Other follow-up examination Benign essential HTN ([facility]) Chronic heart failure with preserved ejection fraction ([facility]/HCC) Severe persistent asthma without complication ([facility]/HCC) Moderate mixed hyperlipidemia not requiring statin therapy ([facility]) Morbid obesity with BMI of 40.0-44.9, adult ([facility]) Opioid use Chronic, continuous use of opioids Chronic back pain greater than 3 months duration Urge incontinence- Primary Morbid obesity with BMI of 40.0-44.9, adult ([facility]) 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 Stage 3a chronic kidney disease (HCC) ([facility]) Chronic respiratory failure with hypoxia ([facility]) Chronic obstructive pulmonary disease with acute lower respiratory infection ([facility]/HCC)- Primary Primary HSV infection of mouth Pulmonary emphysema, unspecified emphysema type ([facility])- Primary Nevus lipomatosus cutaneus superficialis- Primary Lipoma of other skin and subcutaneous tissue Squamous cell carcinoma of skin of chest documented in this encounter [facility]* Diagnosis Moderate persistent asthma with exacerbation (CMS/HCC)- Primary Unspecified asthma, with exacerbation Non-recurrent acute suppurative otitis media of both ears without spontaneous rupture of tympanic membranes Colorectal cancer ([facility]/HCC) Malignant neoplasm of colon, unspecified site Chronic heart failure with preserved ejection fraction (CMS/HCC) Pulmonary emphysema, unspecified emphysema type (CMS/HCC) Moderate episode of recurrent major depressive disorder (CMS/HCC)- Primary Moderate persistent asthma with exacerbation ([facility]/HCC) Unspecified asthma, with exacerbation Medicare annual wellness visit, subsequent Severe persistent asthma with acute exacerbation (CMS/HCC)- Primary Hospital discharge follow-up Other follow-up examination Severe persistent asthma without complication (CMS/HCC)- Primary Essential hypertension ([facility]/HCC) Unspecified essential hypertension JEANNE (acute kidney injury) ([facility]) Leukocytosis, unspecified type Chronic respiratory failure with hypoxia ([facility]/HCC) Chronic bilateral low back pain without sciatica- Primary Vitamin D deficiency Chronic bilateral low back pain without sciatica- Primary Pneumonia due to infectious organism, unspecified laterality, unspecified part of lung- Primary Screening mammogram for breast cancer Chronic respiratory failure with hypoxia (CMS/HCC) Pulmonary emphysema, unspecified emphysema type (CMS/HCC) Essential hypertension ([facility]/HCC) Unspecified essential hypertension Morbid obesity with BMI of 40.0-44.9, adult ([facility]) Hospital discharge follow-up- Primary Other follow-up examination Chronic respiratory failure with hypoxia (CMS/HCC) Severe persistent asthma without complication ([facility]/HCC) Severe persistent asthma with acute exacerbation ([facility]/HCC)- Primary Severe persistent asthma with exacerbation ([facility]/HCC)- Primary Unspecified asthma, with exacerbation Hospital discharge follow-up- Primary Other follow-up examination Chronic respiratory failure with hypoxia (CMS/HCC)- Primary Hospital discharge follow-up Other follow-up examination Benign essential HTN ([facility]/HCC) Chronic heart failure with preserved ejection fraction (CMS/HCC) Severe persistent asthma without complication ([facility]/HCC) Moderate mixed hyperlipidemia not requiring statin therapy ([facility]) Morbid obesity with BMI of 40.0-44.9, adult ([facility]) Opioid use Chronic, continuous use of opioids Chronic back pain greater than 3 months duration Urge incontinence- Primary Morbid obesity with BMI of 40.0-44.9, adult ([facility]) Neoplasm of uncertain behavior of [...] right knee replacement documented in this encounter [facility]* Diagnosis Moderate persistent asthma [...] subsequent Severe persistent asthma with acute exacerbation ([facility]/HCC)- Primary Hospital discharge follow-up Other follow-up examination Severe persistent asthma without complication (CMS/HCC)- Primary Essential hypertension ([facility]/HCC) Unspecified essential hypertension JEANNE (acute kidney injury) ([facility]) Leukocytosis, unspecified type Chronic respiratory failure with hypoxia (CMS/HCC) Chronic bilateral low back pain without sciatica- Primary Vitamin D deficiency Chronic bilateral low back pain without sciatica- Primary Pneumonia due to infectious organism, unspecified laterality, unspecified part of lung- Primary Screening mammogram for breast cancer Chronic respiratory failure with hypoxia (CMS/HCC) Pulmonary emphysema, unspecified emphysema type (CMS/HCC) Essential hypertension ([facility]/HCC) Unspecified essential hypertension Morbid obesity with BMI of 40.0-44.9, adult ([facility]) Hospital discharge follow-up- Primary Other follow-up examination Chronic respiratory failure with hypoxia (CMS/HCC) Severe persistent asthma without complication (CMS/HCC) Severe persistent asthma with acute exacerbation (CMS/HCC)- Primary Severe persistent asthma with exacerbation ([facility]/HCC)- Primary Unspecified asthma, with exacerbation Hospital discharge follow-up- Primary Other follow-up examination Chronic respiratory failure with hypoxia (CMS/HCC)- Primary Hospital discharge follow-up Other follow-up examination Benign essential HTN (CMS/HCC) Chronic heart failure with preserved ejection fraction (CMS/HCC) Severe persistent asthma without complication (CMS/HCC) Moderate mixed hyperlipidemia not requiring statin therapy (CMS/HCC) Morbid obesity with BMI of 40.0-44.9, adult ([facility]) Opioid use Chronic, continuous use of opioids Chronic back pain greater than 3 months duration Urge incontinence- Primary Morbid obesity with BMI of 40.0-44.9, adult ([facility]) 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 Stage 3a chronic kidney disease (HCC) ([facility]) Chronic respiratory failure with hypoxia ([facility]) Chronic obstructive pulmonary disease with acute lower respiratory infection ([facility])- Primary Primary HSV infection of mouth Pulmonary emphysema, unspecified emphysema type ([facility])- Primary Acute pain of right knee- Primary History of total right knee replacement Right hip pain Pain in joint, pelvic region and thigh Arthritis of right hip documented in this encounter [facility] HealthcareEvaluation [facility]* Diagnosis Moderate persistent asthma with exacerbation ([facility])- Primary Unspecified asthma, with exacerbation Non-recurrent acute suppurative otitis media of both ears without spontaneous rupture of tympanic membranes Colorectal cancer ([facility]) Malignant neoplasm of colon, unspecified site Chronic heart failure with preserved ejection fraction ([facility]) Pulmonary emphysema, unspecified emphysema type ([facility]) Moderate episode of recurrent major depressive disorder ([facility])- Primary Moderate persistent asthma with exacerbation ([facility]) Unspecified asthma, with exacerbation Medicare annual wellness visit, subsequent Severe persistent asthma with acute exacerbation ([facility])- Primary Hospital discharge follow-up Other follow-up examination Severe persistent asthma without complication ([facility]/HCC)- Primary Essential hypertension ([facility]) Unspecified essential hypertension JEANNE (acute kidney injury) ([facility]) Leukocytosis, unspecified type Chronic respiratory failure with hypoxia ([facility]) Chronic bilateral low back pain without sciatica- Primary Vitamin D deficiency Chronic bilateral low back pain without sciatica- Primary Pneumonia due to infectious organism, unspecified laterality, unspecified part of lung- Primary Screening mammogram for breast cancer Chronic respiratory failure with hypoxia ([facility]) Pulmonary emphysema, unspecified emphysema type ([facility]) Essential hypertension ([facility]) Unspecified essential hypertension Morbid obesity with BMI of 40.0-44.9, adult ([facility]) Hospital discharge follow-up- Primary Other follow-up examination Chronic respiratory failure with hypoxia ([facility]) Severe persistent asthma without complication ([facility]/HCC) Severe persistent asthma with acute exacerbation ([facility]/HCC)- Primary Severe persistent asthma with exacerbation (CMS/HCC)- Primary Unspecified asthma, with exacerbation Hospital discharge follow-up- Primary Other follow-up examination Chronic respiratory failure with hypoxia ([facility]/HCC)- Primary Hospital discharge follow-up Other follow-up examination Benign essential HTN ([facility]/HCC) Chronic heart failure with preserved ejection fraction (CMS/HCC) Severe persistent asthma without complication (CMS/HCC) Moderate mixed hyperlipidemia not requiring statin therapy ([facility]/HCC) Morbid obesity with BMI of 40.0-44.9, adult ([facility]) Opioid use Chronic, continuous use of opioids Chronic back pain greater than 3 months duration Urge incontinence- Primary Morbid obesity with BMI of 40.0-44.9, adult ([facility]) 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 Stage 3a chronic kidney disease (HCC) ([facility]) Chronic respiratory failure with hypoxia ([facility]) Chronic obstructive pulmonary disease with acute lower respiratory infection ([facility])- Primary Primary HSV infection of mouth Pulmonary emphysema, unspecified emphysema type ([facility])- Primary Seborrheic keratosis- Primary History of SCC (squamous cell carcinoma) of skin Personal history of other malignant neoplasm of skin Lentigines documented in this encounter [facility]Evaluation [facility]* Diagnosis Moderate episode of recurrent major depressive disorder ([facility])- Primary Moderate persistent asthma with exacerbation ([facility]/HCC) Unspecified asthma, with exacerbation Medicare annual wellness visit, subsequent Severe persistent asthma with acute exacerbation ([facility]/HCC)- Primary Hospital discharge follow-up Other follow-up examination Severe persistent asthma without complication ([facility]/HCC)- Primary Essential hypertension ([facility]) Unspecified essential hypertension JEANNE (acute kidney injury) ([facility]) Leukocytosis, unspecified type Chronic respiratory failure with hypoxia ([facility]/HCC) Chronic bilateral low back pain without sciatica- Primary Vitamin D deficiency Chronic bilateral low back pain without sciatica- Primary Pneumonia due to infectious organism, unspecified laterality, unspecified part of lung- Primary Screening mammogram for breast cancer Chronic respiratory failure with hypoxia (CMS/HCC) Pulmonary emphysema, unspecified emphysema type ([facility]/HCC) Essential hypertension ([facility]/HCC) Unspecified essential hypertension Morbid obesity with BMI of 40.0-44.9, adult ([facility]) Hospital discharge follow-up- Primary Other follow-up examination Chronic respiratory failure with hypoxia (CMS/HCC) Severe persistent asthma without complication ([facility]/HCC) Severe persistent asthma with acute exacerbation (CMS/HCC)- Primary Hospital discharge follow-up- Primary Other follow-up examination Chronic respiratory failure with hypoxia ([facility]/HCC)- Primary Hospital discharge follow-up Other follow-up examination Benign essential HTN ([facility]/HCC) Chronic heart failure with preserved ejection fraction ([facility]/HCC) Severe persistent asthma without complication (CMS/HCC) Moderate mixed hyperlipidemia not requiring statin therapy ([facility]) Morbid obesity with BMI of 40.0-44.9, adult ([facility]) Opioid use Chronic, continuous use of opioids Chronic back pain greater than 3 months duration Urge incontinence- Primary Morbid obesity with BMI of 40.0-44.9, adult ([facility]) 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 Stage 3a chronic kidney disease (HCC) ([facility]) Chronic respiratory failure with hypoxia ([facility]) Chronic obstructive pulmonary disease with acute lower respiratory infection ([facility])- Primary Primary HSV infection of mouth Pulmonary emphysema, unspecified emphysema type ([facility])- Primary Flu-like symptoms- Primary Morbid (severe) obesity due to excess calories ([facility]) Body mass index (BMI) 40.0-44.9, adult ([facility]) Pulmonary emphysema, unspecified emphysema type ([facility]) Chronic respiratory failure with hypoxia ([facility]) Essential hypertension ([facility]) Unspecified essential hypertension documented in this encounter [facility]Evaluation [facility]* Diagnosis Moderate episode of recurrent major depressive disorder ([facility]/HCC)- Primary Moderate persistent asthma with exacerbation ([facility]) Unspecified asthma, with exacerbation Medicare annual wellness visit, subsequent Severe persistent asthma with acute exacerbation ([facility])- Primary Hospital discharge follow-up Other follow-up examination Severe persistent asthma without complication ([facility]/HCC)- Primary Essential hypertension ([facility]/HCC) Unspecified essential hypertension JEANNE (acute kidney injury) ([facility]) Leukocytosis, unspecified type Chronic respiratory failure with hypoxia ([facility]/HCC) Chronic bilateral low back pain without sciatica- Primary Vitamin D deficiency Chronic bilateral low back pain without sciatica- Primary Pneumonia due to infectious organism, unspecified laterality, unspecified part of lung- Primary Screening mammogram for breast cancer Chronic respiratory failure with hypoxia (CMS/HCC) Pulmonary emphysema, unspecified emphysema type (CMS/HCC) Essential hypertension ([facility]/HCC) Unspecified essential hypertension Morbid obesity with BMI of 40.0-44.9, adult ([facility]/HCC) Hospital discharge follow-up- Primary Other follow-up examination Chronic respiratory failure with hypoxia (CMS/HCC) Severe persistent asthma without complication (CMS/HCC) Severe persistent asthma with acute exacerbation (CMS/HCC)- Primary Hospital discharge follow-up- Primary Other follow-up examination Chronic respiratory failure with hypoxia (CMS/HCC)- Primary Hospital discharge follow-up Other follow-up examination Benign essential HTN ([facility]/HCC) Chronic heart failure with preserved ejection fraction (CMS/HCC) Severe persistent asthma without complication (CMS/HCC) Moderate mixed hyperlipidemia not requiring statin therapy (CMS/HCC) Morbid obesity with BMI of 40.0-44.9, adult ([facility]) Opioid use Chronic, continuous use of opioids Chronic back pain greater than 3 months duration Urge incontinence- Primary Morbid obesity with BMI of 40.0-44.9, adult ([facility]) 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 Stage 3a chronic kidney disease (HCC) ([facility]) Chronic respiratory failure with hypoxia ([facility]) Chronic obstructive pulmonary disease with acute lower respiratory infection ([facility])- Primary Primary HSV infection of mouth Pulmonary emphysema, unspecified emphysema type ([facility]/HCC)- Primary Flu-like symptoms- Primary Morbid (severe) obesity due to excess calories ([facility]) Body mass index (BMI) 40.0-44.9, adult ([facility]) Pulmonary emphysema, unspecified emphysema type ([facility]/HCC) Chronic respiratory failure with hypoxia (CMS/HCC) Essential hypertension ([facility]/HCC) Unspecified essential hypertension Pneumonia due to infectious organism, unspecified laterality, unspecified part of lung- Primary documented in this encounter [facility]* Diagnosis Moderate episode of recurrent major depressive disorder ([facility]/HCC)- Primary Moderate persistent asthma with exacerbation (CMS/HCC) Unspecified asthma, with exacerbation Medicare annual wellness visit, subsequent Severe persistent asthma with acute exacerbation ([facility]/HCC)- Primary Hospital discharge follow-up Other follow-up examination [...] depressive disorder (CMS/HCC) documented in this encounter [facility]Evaluation [facility]* Diagnosis Moderate episode of recurrent major depressive disorder ([facility])- Primary Moderate persistent asthma with exacerbation ([facility]) Unspecified asthma, with exacerbation Medicare annual wellness visit, subsequent Severe persistent asthma with acute exacerbation ([facility])- Primary Hospital discharge follow-up Other follow-up examination Severe persistent asthma without complication ([facility]/HCC)- Primary Essential hypertension ([facility]) Unspecified essential hypertension JEANNE (acute kidney injury) ([facility]) Leukocytosis, unspecified type Chronic respiratory failure with hypoxia ([facility]) Chronic bilateral low back pain without sciatica- Primary Vitamin D deficiency Chronic bilateral low back pain without sciatica- Primary Pneumonia due to infectious organism, unspecified laterality, unspecified part of lung- Primary Screening mammogram for breast cancer Chronic respiratory failure with hypoxia ([facility]) Pulmonary emphysema, unspecified emphysema type ([facility]) Essential hypertension ([facility]) Unspecified essential hypertension Morbid obesity with BMI of 40.0-44.9, adult ([facility]) Hospital discharge follow-up- Primary Other follow-up examination Chronic respiratory failure with hypoxia ([facility]) Severe persistent asthma without complication ([facility]) Chronic respiratory failure with hypoxia ([facility])- Primary Hospital discharge follow-up Other follow-up examination Benign essential HTN ([facility]) Chronic heart failure with preserved ejection fraction ([facility]) Severe persistent asthma without complication ([facility]) Moderate mixed hyperlipidemia not requiring statin therapy ([facility]) Morbid obesity with BMI of 40.0-44.9, adult ([facility]) Opioid use Chronic, continuous use of opioids Chronic back pain greater than 3 months duration Urge incontinence- Primary Morbid obesity with BMI of 40.0-44.9, adult ([facility]) 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 Stage 3a chronic kidney disease (HCC) ([facility]) Chronic respiratory failure with hypoxia ([facility]) Chronic obstructive pulmonary disease with acute lower respiratory infection ([facility])- Primary Primary HSV infection of mouth Pulmonary emphysema, unspecified emphysema type ([facility])- Primary Flu-like symptoms- Primary Morbid (severe) obesity due to excess calories ([facility]) Body mass index (BMI) 40.0-44.9, adult ([facility]) Pulmonary emphysema, unspecified emphysema type ([facility]/HCC) Chronic respiratory failure with hypoxia ([facility]/HCC) Essential hypertension ([facility]) Unspecified essential hypertension Pneumonia due [...] syndrome (RLS) Candidiasis documented in this encounter [facility] HealthcareEvaluation note* Diagnosis Moderate episode of recurrent major depressive disorder (CMS/HCC)- Primary Moderate persistent asthma with exacerbation (CMS/HCC) Unspecified asthma, with exacerbation Medicare annual wellness visit, subsequent Severe persistent asthma with acute exacerbation ([facility])- Primary Hospital discharge follow-up Other [...] Morbid obesity with BMI of 40.0-44.9, adult ([facility]) Hospital discharge follow-up- Primary Other follow-up examination Chronic respiratory failure with hypoxia (CMS/HCC) Severe persistent asthma without complication (CMS/HCC) Chronic respiratory failure with hypoxia (CMS/HCC)- Primary Hospital discharge follow-up Other follow-up examination Benign essential HTN (CMS/HCC) Chronic heart failure with preserved ejection fraction (CMS/HCC) Severe persistent asthma without complication ([facility]) Moderate mixed hyperlipidemia not requiring statin therapy ([facility]) Morbid obesity with BMI of 40.0-44.9, adult ([facility]) Opioid use Chronic, continuous use of opioids Chronic back pain greater than 3 months duration Urge incontinence- Primary Morbid obesity with BMI of 40.0-44.9, adult ([facility]) 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 Stage 3a chronic kidney disease (HCC) ([facility]) Chronic respiratory failure with hypoxia ([facility]) Chronic obstructive pulmonary disease with acute lower respiratory infection ([facility])- Primary Primary HSV infection of mouth Pulmonary emphysema, unspecified emphysema type ([facility])- Primary Flu-like symptoms- Primary Morbid (severe) obesity due to excess calories ([facility]) Body mass index (BMI) 40.0-44.9, adult ([facility]) Pulmonary emphysema, unspecified emphysema type ([facility]) Chronic respiratory failure with hypoxia ([facility]) Essential hypertension ([facility]) Unspecified essential hypertension Pneumonia due to infectious organism, unspecified laterality, unspecified part of lung- Primary Pneumonia due to infectious organism, unspecified laterality, unspecified part of lung- Primary Chronic respiratory failure with hypoxia ([facility]) Severe persistent asthma, uncomplicated ([facility]) Chronic heart failure with preserved ejection fraction ([facility]) Essential hypertension ([facility]) Unspecified essential hypertension Other secondary pulmonary hypertension Chronic kidney disease, stage 3a (HCC) ([facility]) Morbid (severe) obesity due to excess calories ([facility]) Screening mammogram for breast cancer Moderate episode of recurrent major depressive disorder ([facility]) Edema of both lower extremities- Primary Spinal stenosis, lumbar region without neurogenic claudication Chronic heart failure with preserved ejection fraction ([facility]) Chronic respiratory failure with hypoxia ([facility]) Severe persistent asthma, uncomplicated ([facility]) Gastroesophageal reflux disease, unspecified whether esophagitis present Morbid (severe) obesity due to excess calories ([facility]) RLS (restless legs syndrome) Restless legs syndrome (RLS) Candidiasis Gastroesophageal reflux disease without esophagitis Esophageal reflux documented in this encounter [facility] HealthcareEvaluation note* Diagnosis Moderate episode of recurrent major depressive disorder ([facility])- Primary Moderate persistent asthma with exacerbation ([facility]) Unspecified asthma, with exacerbation Medicare [...] Morbid obesity with BMI of 40.0-44.9, adult ([facility]) Hospital discharge follow-up- Primary Other follow-up examination Chronic respiratory failure with hypoxia (CMS/HCC) Severe persistent asthma without complication (CMS/HCC) Chronic respiratory failure with hypoxia ([facility]/HCC)- Primary Hospital discharge follow-up Other follow-up examination Benign essential HTN ([facility]/HCC) Chronic heart failure with preserved ejection fraction (CMS/HCC) Severe persistent asthma without complication (CMS/HCC) Moderate mixed hyperlipidemia not requiring statin therapy (CMS/HCC) Morbid obesity with BMI of 40.0-44.9, adult ([facility]) Opioid use Chronic, continuous use of opioids Chronic back pain greater than 3 months duration Urge incontinence- Primary Morbid obesity with BMI of 40.0-44.9, adult ([facility]) 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 Stage 3a chronic kidney disease (HCC) ([facility]) Chronic respiratory failure with hypoxia ([facility]) Chronic obstructive pulmonary disease with acute lower respiratory infection ([facility])- Primary Primary HSV infection of mouth Pulmonary emphysema, unspecified emphysema type (CMS/HCC)- Primary Flu-like symptoms- Primary Morbid (severe) obesity due to excess calories ([facility]) Body mass index (BMI) 40.0-44.9, adult ([facility]) Pulmonary emphysema, unspecified emphysema type [...] Morbid (severe) obesity due to excess calories ([facility]/HCC) Restless leg syndrome Restless legs syndrome (RLS) documented in this encounter [facility] HealthcareEvaluation note* Diagnosis Moderate episode of [...] Morbid obesity with BMI of 40.0-44.9, adult ([facility]) Hospital discharge follow-up- Primary Other [...] Morbid obesity with BMI of 40.0-44.9, adult [place] Opioid use Chronic, continuous use of opioids Chronic back pain greater than 3 months duration Urge incontinence- Primary Morbid obesity with BMI of 40.0-44.9, adult ([facility] 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 Stage 3a chronic kidney disease ([facility]) Chronic respiratory failure with hypoxia ([facility]) Chronic obstructive pulmonary disease with acute lower respiratory infection (HCC)- Primary Primary HSV infection of mouth Pulmonary emphysema, unspecified emphysema type ([facility])- Primary Flu-like symptoms- Primary Morbid (severe) obesity due to excess calories ([facility]) Body mass index (BMI) 40.0-44.9, adult ([facility]) Pulmonary emphysema, unspecified emphysema type ([facility]) Chronic respiratory failure with hypoxia ([facility]) Essential hypertension Unspecified essential hypertension Pneumonia due to infectious organism, unspecified laterality, unspecified part of lung- Primary Pneumonia due to infectious organism, unspecified laterality, unspecified part of lung- Primary Chronic respiratory failure with hypoxia ([facility]) Severe persistent asthma, uncomplicated (HCC) Chronic heart failure with preserved ejection fraction (HCC) Essential hypertension Unspecified essential hypertension Other secondary pulmonary hypertension ([facility]) Chronic kidney disease, stage 3a ([facility]) Morbid (severe) obesity due to excess calories ([facility]) Screening mammogram for breast cancer Moderate episode of recurrent major depressive disorder ([facility]) Edema of both lower extremities- Primary Spinal stenosis, lumbar region without neurogenic claudication Chronic heart failure with preserved ejection fraction (HCC) Chronic respiratory failure with hypoxia (HCC) Severe persistent asthma, uncomplicated ([facility]) Gastroesophageal reflux disease, unspecified whether esophagitis present Morbid (severe) obesity due to excess calories ([facility]) RLS (restless legs syndrome) Restless legs syndrome (RLS) Candidiasis Moderate episode of recurrent major depressive disorder (HCC)- Primary Pulmonary emphysema, unspecified emphysema type (HCC) Chronic respiratory failure with hypoxia (HCC) Morbid (severe) obesity due to excess calories ([facility]) Restless leg syndrome Restless legs syndrome (RLS) Moderate episode of recurrent major depressive disorder (HCC)- Primary documented in this encounter [facility] HealthcareEvaluation note* Diagnosis Moderate episode of recurrent [...] Morbid obesity with BMI of 40.0-44.9, adult ([facility]) Hospital discharge follow-up- Primary Other follow-up examination Chronic respiratory failure with hypoxia (HCC) Severe persistent asthma without complication (HCC) Chronic respiratory failure with hypoxia (HCC)- Primary Hospital discharge follow-up Other follow-up examination Benign essential HTN Chronic heart failure with preserved ejection fraction (HCC) Severe persistent asthma without complication (HCC) Moderate mixed hyperlipidemia not requiring statin therapy Morbid obesity with BMI of 40.0-44.9, adult ([facility]) Opioid use Chronic, continuous use of opioids Chronic back pain greater than 3 months duration Urge incontinence- Primary Morbid obesity with BMI of 40.0-44.9, adult ([facility]) 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 Stage 3a chronic kidney disease ([facility]) Chronic respiratory failure with hypoxia ([facility]) Chronic obstructive pulmonary disease with acute lower respiratory infection (HCC)- Primary Primary HSV infection of mouth Pulmonary emphysema, unspecified emphysema type (HCC)- Primary Flu-like symptoms- Primary Morbid (severe) obesity due to excess calories ([facility]) Body mass index (BMI) 40.0-44.9, adult ([facility] [place]) Pulmonary emphysema, unspecified emphysema type (HCC) Chronic [...] hypertension (HCC) Chronic kidney disease, stage 3a ([facility]) Morbid (severe) obesity due to excess calories ([facility]) Screening mammogram for breast cancer Moderate episode of recurrent major depressive disorder (HCC) Edema of both lower extremities- Primary Spinal stenosis, lumbar region without neurogenic claudication Chronic heart failure with preserved ejection fraction (HCC) Chronic respiratory failure with hypoxia (HCC) Severe persistent asthma, uncomplicated (HCC) Gastroesophageal reflux disease, unspecified whether esophagitis present Morbid (severe) obesity due to excess calories ([facility]) RLS (restless legs syndrome) Restless legs syndrome (RLS) Candidiasis Moderate episode of recurrent major depressive disorder (HCC)- Primary Pulmonary emphysema, unspecified emphysema type (HCC) Chronic respiratory failure with hypoxia (HCC) Morbid (severe) obesity due to excess calories ([facility]) Restless leg syndrome Restless legs syndrome (RLS) Chronic bilateral low back pain without sciatica documented in this encounter [facility] HealthcareEvaluation note* Diagnosis Moderate episode of [...] Morbid obesity with BMI of 40.0-44.9, adult ([facility] [place]) Hospital discharge follow-up- Primary Other follow-up examination Chronic respiratory failure with hypoxia (HCC) Severe persistent asthma without complication (HCC) Chronic respiratory failure with hypoxia (HCC)- Primary Hospital discharge follow-up Other follow-up examination Benign essential HTN Chronic heart failure with preserved ejection fraction (HCC) Severe persistent asthma without complication (HCC) Moderate mixed hyperlipidemia not requiring statin therapy Morbid obesity with BMI of 40.0-44.9, adult ([facility] [place]) Opioid use Chronic, continuous use of opioids Chronic back pain greater than 3 months duration Urge incontinence- Primary Morbid obesity with BMI of 40.0-44.9, adult ([facility] [place]) 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 Stage 3a chronic kidney disease ([facility]) Chronic respiratory failure with hypoxia (HCC) Chronic obstructive pulmonary disease with acute lower respiratory infection (HCC)- Primary Primary HSV infection of mouth Pulmonary emphysema, unspecified emphysema type (HCC)- Primary Flu-like symptoms- Primary Morbid (severe) obesity due to excess calories ([facility]) Body mass index (BMI) 40.0-44.9, adult ([facility]) Pulmonary emphysema, unspecified emphysema type [...] hypertension (HCC) Chronic kidney disease, stage 3a ([facility]) Morbid (severe) obesity due to excess calories ([facility]) Screening mammogram for breast cancer Moderate episode of recurrent major depressive disorder ([facility]) Edema of both lower extremities- Primary Spinal stenosis, lumbar region without neurogenic claudication Chronic heart failure with preserved ejection fraction (HCC) Chronic respiratory failure with hypoxia (HCC) Severe persistent asthma, uncomplicated (HCC) Gastroesophageal reflux disease, unspecified whether esophagitis present Morbid (severe) obesity due to excess calories ([facility]) RLS (restless legs syndrome) Restless legs syndrome (RLS) Candidiasis Moderate episode of recurrent major depressive disorder (HCC)- Primary Pulmonary emphysema, unspecified emphysema type (HCC) Chronic respiratory failure with hypoxia (HCC) Morbid (severe) obesity due to excess calories ([facility]) Restless leg syndrome Restless legs syndrome (RLS) Restless leg syndrome Restless legs syndrome (RLS) documented in this encounter [facility] HealthcareEvaluation note* Diagnosis Moderate episode of [...] Morbid obesity with BMI of 40.0-44.9, adult ([facility] [place]) Hospital discharge follow-up- Primary Other follow-up examination Chronic respiratory failure with hypoxia (HCC) Severe persistent asthma without complication (HCC) Chronic respiratory failure with hypoxia (HCC)- Primary Hospital discharge follow-up Other follow-up examination Benign essential HTN Chronic heart failure with preserved ejection fraction (HCC) Severe persistent asthma without complication (HCC) Moderate mixed hyperlipidemia not requiring statin therapy Morbid obesity with BMI of 40.0-44.9, adult ([facility]) Opioid use Chronic, continuous use of opioids Chronic back pain greater than 3 months duration Urge incontinence- Primary Morbid obesity with BMI of 40.0-44.9, adult ([facility]) 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 Stage 3a chronic kidney disease ([facility]) Chronic respiratory failure with hypoxia ([facility]) Chronic obstructive pulmonary disease with acute lower respiratory infection ([facility])- Primary Primary HSV infection of mouth Pulmonary emphysema, unspecified emphysema type ([facility])- Primary Flu-like symptoms- Primary Morbid (severe) obesity due to excess calories ([facility]) Body mass index (BMI) 40.0-44.9, adult ([facility]) Pulmonary emphysema, unspecified emphysema type ([facility]) Chronic respiratory failure with hypoxia [...] hypertension (HCC) Chronic kidney disease, stage 3a ([facility]) Morbid (severe) obesity due to excess calories ([facility]) Screening mammogram for breast cancer Moderate episode of recurrent major depressive disorder (HCC) Edema of both lower extremities- Primary Spinal stenosis, lumbar region without neurogenic claudication Chronic heart failure with preserved ejection fraction (HCC) Chronic respiratory failure with hypoxia (HCC) Severe persistent asthma, uncomplicated (HCC) Gastroesophageal reflux disease, unspecified whether esophagitis present Morbid (severe) obesity due to excess calories ([facility]) RLS (restless legs syndrome) Restless legs syndrome (RLS) Candidiasis Moderate episode of recurrent major depressive disorder (HCC)- Primary Pulmonary emphysema, unspecified emphysema type (HCC) Chronic respiratory failure with hypoxia (HCC) Morbid (severe) obesity due to excess calories ([facility]) Restless leg syndrome Restless legs syndrome (RLS) Chronic heart failure with preserved ejection fraction (HCC)- Primary Edema of both lower extremities documented in this encounter [facility] HealthcareEvaluation note* Diagnosis Moderate episode of [...] Morbid obesity with BMI of 40.0-44.9, adult ([facility]) Hospital discharge follow-up- Primary Other follow-up examination Chronic respiratory failure with hypoxia (HCC) Severe persistent asthma without complication (HCC) Chronic respiratory failure with hypoxia (HCC)- Primary Hospital discharge follow-up Other follow-up examination Benign essential HTN Chronic heart failure with preserved ejection fraction (HCC) Severe persistent asthma without complication (HCC) Moderate mixed hyperlipidemia not requiring statin therapy Morbid obesity with BMI of 40.0-44.9, adult [place] Opioid use Chronic, continuous use of opioids Chronic back pain greater than 3 months duration Urge incontinence- Primary Morbid obesity with BMI of 40.0-44.9, adult ([facility] 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 Stage 3a chronic kidney disease ([facility]) Chronic respiratory failure with hypoxia (HCC) Chronic obstructive pulmonary disease with acute lower respiratory infection (HCC)- Primary Primary HSV infection of mouth Pulmonary emphysema, unspecified emphysema type (HCC)- Primary Flu-like symptoms- Primary Morbid (severe) obesity due to excess calories ([facility]) Body mass index (BMI) 40.0-44.9, adult ([facility] Pulmonary emphysema, unspecified emphysema type (HCC) Chronic [...] hypertension (HCC) Chronic kidney disease, stage 3a ([facility]) Morbid (severe) obesity due to excess calories ([facility]) Screening mammogram for breast cancer Moderate episode of recurrent major depressive disorder ([facility]) Edema of both lower extremities- Primary Spinal stenosis, lumbar region without neurogenic claudication Chronic heart failure with preserved ejection fraction (HCC) Chronic respiratory failure with hypoxia (HCC) Severe persistent asthma, uncomplicated (HCC) Gastroesophageal reflux disease, unspecified whether esophagitis present Morbid (severe) obesity due to excess calories ([facility]) RLS (restless legs syndrome) Restless legs syndrome (RLS) Candidiasis Moderate episode of recurrent major depressive disorder (HCC)- Primary Pulmonary emphysema, unspecified emphysema type (HCC) Chronic respiratory failure with hypoxia (HCC) Morbid (severe) obesity due to excess calories ([facility]) Restless leg syndrome Restless legs syndrome (RLS) Moderate episode of recurrent major depressive disorder (HCC)- Primary Morbid (severe) obesity due to excess calories ([facility]) Candidiasis of breast Skin pustule Unspecified local infection of skin and subcutaneous tissue RLS (restless legs syndrome) Restless legs syndrome (RLS) documented in this encounter [facility] HealthcareEvaluation note* Diagnosis Moderate episode of [...] Morbid obesity with BMI of 40.0-44.9, adult ([facility] Hospital discharge follow-up- Primary Other follow-up examination Chronic respiratory failure with hypoxia (HCC) Severe persistent asthma without complication (HCC) Chronic respiratory failure with hypoxia (HCC)- Primary Hospital discharge follow-up Other follow-up examination Benign essential HTN Chronic heart failure with preserved ejection fraction (HCC) Severe persistent asthma without complication (HCC) Moderate mixed hyperlipidemia not requiring statin therapy Morbid obesity with BMI of 40.0-44.9, adult ([facility] Opioid use Chronic, continuous use of opioids Chronic back pain greater than 3 months duration Urge incontinence- Primary Morbid obesity with BMI of 40.0-44.9, adult ([facility] 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 Stage 3a chronic kidney disease ([facility]) Chronic respiratory failure with hypoxia ([facility]) Chronic obstructive pulmonary disease with acute lower respiratory infection ([facility])- Primary Primary HSV infection of mouth Pulmonary emphysema, unspecified emphysema type ([facility])- Primary Flu-like symptoms- Primary Morbid (severe) obesity due to excess calories ([facility]) Body mass index (BMI) 40.0-44.9, adult ([facility]) Pulmonary emphysema, unspecified emphysema type ([facility]) Chronic respiratory failure with hypoxia [...] hypertension (HCC) Chronic kidney disease, stage 3a ([facility]) Morbid (severe) obesity due to excess calories ([facility]) Screening mammogram for breast cancer Moderate episode of recurrent major depressive disorder ([facility]) Edema of both lower extremities- Primary Spinal stenosis, lumbar region without neurogenic claudication Chronic heart failure with preserved ejection fraction (HCC) Chronic respiratory failure with hypoxia (HCC) Severe persistent asthma, uncomplicated (HCC) Gastroesophageal reflux disease, unspecified whether esophagitis present Morbid (severe) obesity due to excess calories ([facility]) RLS (restless legs syndrome) Restless legs syndrome (RLS) Candidiasis Moderate episode of recurrent major depressive disorder (HCC)- Primary Pulmonary emphysema, unspecified emphysema type (HCC) Chronic respiratory failure with hypoxia (HCC) Morbid (severe) obesity due to excess calories ([facility]) Restless leg syndrome Restless legs syndrome (RLS) Moderate episode of recurrent major depressive disorder (HCC)- Primary Morbid (severe) obesity due to excess calories ([facility]) Candidiasis of breast Skin pustule Unspecified local infection of skin and subcutaneous tissue RLS (restless legs syndrome) Restless legs syndrome (RLS) Skin pustule Unspecified local infection of skin and subcutaneous tissue documented in this encounter [facility] HealthcareEvaluation note* Diagnosis Moderate episode of [...] Morbid obesity with BMI of 40.0-44.9, adult ([facility]) Hospital discharge follow-up- Primary Other follow-up examination Chronic respiratory failure with hypoxia (HCC) Severe persistent asthma without complication (HCC) Chronic respiratory failure with hypoxia (HCC)- Primary Hospital discharge follow-up Other follow-up examination Benign essential HTN Chronic heart failure with preserved ejection fraction (HCC) Severe persistent asthma without complication (HCC) Moderate mixed hyperlipidemia not requiring statin therapy Morbid obesity with BMI of 40.0-44.9, adult ([facility]) Opioid use Chronic, continuous use of opioids Chronic back pain greater than 3 months duration Urge incontinence- Primary Morbid obesity with BMI of 40.0-44.9, adult ([facility]) 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 Stage 3a chronic kidney disease ([facility]) Chronic respiratory failure with hypoxia (HCC) Chronic obstructive pulmonary disease with acute lower respiratory infection (HCC)- Primary Primary HSV infection of mouth Pulmonary emphysema, unspecified emphysema type (HCC)- Primary Flu-like symptoms- Primary Morbid (severe) obesity due to excess calories ([facility]) Body mass index (BMI) 40.0-44.9, adult ([facility]) Pulmonary emphysema, unspecified emphysema type (HCC) Chronic [...] hypertension (HCC) Chronic kidney disease, stage 3a ([facility]) Morbid (severe) obesity due to excess calories ([facility]) Screening mammogram for breast cancer Moderate episode of recurrent major depressive disorder (HCC) Edema of both lower extremities- Primary Spinal stenosis, lumbar region without neurogenic claudication Chronic heart failure with preserved ejection fraction (HCC) Chronic respiratory failure with hypoxia (HCC) Severe persistent asthma, uncomplicated (HCC) Gastroesophageal reflux disease, unspecified whether esophagitis present Morbid (severe) obesity due to excess calories ([facility]) RLS (restless legs syndrome) Restless legs syndrome (RLS) Candidiasis Moderate episode of recurrent major depressive disorder (HCC)- Primary Pulmonary emphysema, unspecified emphysema type (HCC) Chronic respiratory failure with hypoxia (HCC) Morbid (severe) obesity due to excess calories ([facility]) Restless leg syndrome Restless legs syndrome (RLS) Moderate episode of recurrent major depressive disorder (HCC)- Primary Morbid (severe) obesity due to excess calories ([facility]) Candidiasis of breast Skin pustule Unspecified local infection of skin and subcutaneous tissue RLS (restless legs syndrome) Restless legs syndrome (RLS) Moderate episode of recurrent major depressive disorder (HCC) documented in this encounter [facility] HealthcareEvaluation note* Diagnosis Moderate episode of [...] Morbid obesity with BMI of 40.0-44.9, adult ([facility]) Hospital discharge follow-up- Primary Other follow-up examination Chronic respiratory failure with hypoxia (HCC) Severe persistent asthma without complication (HCC) Chronic respiratory failure with hypoxia (HCC)- Primary Hospital discharge follow-up Other follow-up examination Benign essential HTN Chronic heart failure with preserved ejection fraction (HCC) Severe persistent asthma without complication (HCC) Moderate mixed hyperlipidemia not requiring statin therapy Morbid obesity with BMI of 40.0-44.9, adult ([facility]) Opioid use Chronic, continuous use of opioids Chronic back pain greater than 3 months duration Urge incontinence- Primary Morbid obesity with BMI of 40.0-44.9, adult ([facility]) 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 Stage 3a chronic kidney disease ([facility]) Chronic respiratory failure with hypoxia ([facility]) Chronic obstructive pulmonary disease with acute lower respiratory infection ([facility])- Primary Primary HSV infection of mouth Pulmonary emphysema, unspecified emphysema type ([facility])- Primary Flu-like symptoms- Primary Morbid (severe) obesity due to excess calories ([facility]) Body mass index (BMI) 40.0-44.9, adult ([facility]) Pulmonary emphysema, unspecified emphysema type ([facility]) Chronic respiratory failure with hypoxia [...] hypertension (HCC) Chronic kidney disease, stage 3a ([facility]) Morbid (severe) obesity due to excess calories ([facility]) Screening mammogram for breast cancer Moderate episode of recurrent major depressive disorder ([facility]) Edema of both lower extremities- Primary Spinal stenosis, lumbar region without neurogenic claudication Chronic heart failure with preserved ejection fraction (HCC) Chronic respiratory failure with hypoxia (HCC) Severe persistent asthma, uncomplicated (HCC) Gastroesophageal reflux disease, unspecified whether esophagitis present Morbid (severe) obesity due to excess calories ([facility]) RLS (restless legs syndrome) Restless legs syndrome [...] 8:49amHypokalemiaacuteSeptember 2024 8:49amHypomagnesemiaacuteSeptember 2024 8:49amMajor depression, recurrent, chronicacuteSept2024 8:49amMorbid obesity due to excess caloriesacuteSept2024 8:49am [facility] Work Phone: History general Narrative - Reported* Type Description Date Medical History Colon Cancer 2004 Medical HistoryCOPDMedical HistoryMRSA IN LEFT HIPMedical HistoryMORBID OBESITY DUE TO EXCESS CALORIESMedical HistoryRESPIRATORY FAILUREMedical HistoryACUTE POSTHEMORRHAGIC ANEMIAMedical 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 HistoryHYPER LIPIDEMIAMedical HistoryMAJOR DEPRESSIVE DISORDERMedical HistoryGERDMedical HistoryMUSCLE SPASMMedical HistoryUNSPECIFIED ASTHMAMedical HistoryDYSPNEASurgical Historyback [id number] History back [id number] Historytubal [id number] Historytubal [id number] Surgical Historyfoot sx111/2014Surgical Historyleft total hip arthoplasty07/2016 Surgical History(R) [facility] - DR SERRATO10/18/2018Surgical History1 INCH OF BONE OFF OF RIGHT [id number] HistoryLEFT HIP RESVISION03/2020Hospitalization Historysee [id number],1987Hospitalization History1 week during [id number] Hospitalization HistoryISSUE WITH HIP COMING OUT AND NEEDING TO PUT IT BACK IN 08/2019Hospitalization HistoryHIP REVISION03/2020 [employer] Other History general Narrative - Reported* Type Description Date Medical History Colon Cancer 2004 Medical HistoryCOPDMedical HistoryMRSA IN LEFT HIPMedical HistoryMORBID OBESITY DUE TO EXCESS CALORIESMedical HistoryRESPIRATORY FAILUREMedical HistoryACUTE POSTHEMORRHAGIC ANEMIAMedical 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 HistoryHYPER LIPIDEMIAMedical HistoryMAJOR DEPRESSIVE DISORDERMedical HistoryGERDMedical HistoryMUSCLE SPASMMedical HistoryUNSPECIFIED ASTHMAMedical HistoryDYSPNEAMedical HistoryCOVID 04/2023Surgical Historyback [id number] Historyback [id number] Historytubal [id number] Historytubal [id number] Historyfoot sx1/2014Surgical Historyleft total hip arthoplasty07/2016Surgical History(R) [facility] - DR SERRATO10/18/2018 Surgical History1 INCH OF BONE OFF OF RIGHT [id number] HistoryLEFT HIP RESVISION03/2020Hospitalization Historysee [id number] History1 week during [id number] HistoryISSUE WITH HIP COMING OUT AND NEEDING TO PUT IT BACK IN08/2019Hospitalization HistoryHIP REVISION03/2020 Hospitalization HistoryCOVID X 2 WEEKS04/2023 [employer] Other Hospital course Narrative No data available for this section [facility] Hospital Discharge instructions Additional Instructions DISCHARGE [...] if you have any problems. -Office number [phone][facility] Work Phone: Hospital Discharge instructions No data available for this section [facility] Hospital Discharge instructionsAmbulatory Orders* Referral to Pulmonology Time Frame: 07/17/25, Location: None [facility] Work Phone: Progress note No data available for this section [facility] reason for referral (narrative)No reason for referral information availableFayette County Memorial Hospital Work Phone: Advance Directives Advance Directive Response [...] 05, 2024 1 :01pm Left Eye Cataract November 7th, 2024 1 0:31am Chief Complaint Admit Date [...] 2025 8:49am Major depression, recurrent, chronic Sep tem2024 8:49am Morbid obesity due to excess calories [...] 18, 2025 8:39am Encounter for subsequent maeve [facility] wellness visit (AWV) in Medicare patient August [...] or prosecute any alcohol or drug abuse patient.[facility] HospitalIn the event this information is protected by the Federal Confidentiality of Alcohol and Drug Abuse Patient Records regulations: The Federal rules restrict any use of the information to criminally investigate or prosecute any alcohol or drug abuse patient.[facility] HospitalIn the event this information is protected by the Federal Confidentiality of Alcohol and Drug Abuse Patient Records regulations: The Federal rules restrict any use of the information to criminally investigate or prosecute any alcohol or drug abuse patient.[facility] HospitalIn the event this information is protected by the Federal Confidentiality of Alcohol and Drug Abuse Patient Records regulations: The Federal rules restrict any use of the information to criminally investigate or prosecute any alcohol or drug abuse patient.[facility] INFORMATION SOURCE (unrecogn ized section and content) DATE CREATED AUTHOR 03/03/2022 [facility] DATE CREATED AUTHOR AUTHOR'S ORGANIZ ATION 04/17/2023 [facility] DATE CREATED AUTHOR AUTHOR'S ORGANIZ ATION 10/20/2024 [facility] DATE CREATED AUTHOR AUTHOR'S ORGANIZ ATION 11/18/2024 [facility] DATE CREATED AUTHOR AUTHOR'S ORGANIZ ATION 01/25/2025 [facility] DATE CREATED AUTHOR AUTHOR'S ORGANIZ ATION 03/26/2025 [facility] DATE CREATED AUTHOR AUTHOR'S ORGANIZ ATION 06/20/2025 [facility] DATE CREATED AUTHOR AUTHOR'S ORGANIZ ATION 07/19/2025 [facility] DATE CREATED AUTHOR AUTHOR'S ORGANIZ ATION 07/23/2025 [facility] REASON FOR VISIT (unrecogniz ed section and content) ReasonOnset DateCommentsMedication Oydiwnbc56/07/2024Med Bmpzvu534Reason Onset DateCommentsMed Ylywco694ReasonCommentsMed RefillReasonComments Follow-upShe presents today for a 3 month follow up for her asthma.Reason CommentsSuspicious Skin LesionSpecialtyDiagnoses / ProceduresReferred By Contact Referred To ContactDermatology Diagnoses 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 Pt does do chair exercises four times a week and walks (with walker) but due to her health conditions she is limited. Pt is in a wheelchair with very limited ambulation -SCRReasonOnset DateCommentsMed Sxpunu0307/17/2024 ReasonCommentsCoughNauseaReasonCommentsHospital Mwlbps-koYjdlztHaeqbgyyGrftzh-gg Suspicious Skin LesionReasonCommentsSkin CheckReasonOnset DateCommentsMed Refill 02/26/2025ReasonOnset DateCommentsMed Tgrrnq6404/29/2025ReasonCommentsCOPDReason CommentsSkin CheckSuspicious Skin Lesion Care Teams (unrecognized sec tion and content) Team Status: Inactive Member Role Status Dates Gato Domingo MD Attending Provider Active Jessica Lora Care ProviderActive Team Status: Active Member Role Status [...] Active Start: March 14, 2024 End: March 14valentin Bernard MDAkarla ProviderActiveStart: March 14, 2024 End: March 14, 2024Team MemberRelationshipSpecialtyStart DateEnd Date Tapan Zazueta MD [address] [place] [address] PCP - GeneralFamily Medicine06/10/24 Ariella Mathis DO [address] [place] [address] Referring PhysicianNeurolog01/02/24 Aida Reese NP [address] [place] [address] Nurse PractitionerFamily Medicine06/10/24Team MemberRelationshipSpecialtyStart DateEnd Date Tapan Zazueta MD [address] [place] [address] PCP - GeneralFamily Medicine06/10/24 Ariella Mathis DO [address] [place] [address] Referring PhysicianNeurology2 Aida Reese NP [address] [place] [address] [facility] Medicine06/10/24Team MemberRelationshipSpecialtyStart DateEnd Date Tapan Zazueta MD [address] [place] [address] PCP - Generalmily Medicine06/10/24 Ariella Mathis DO [address] [place] [address] Referring PhysicianNeurology2 Aida Reese NP [address] [place] [address] Nurse Pract[facility] Medicine06/10/24Team MemberRelationshipSpecialtyStart DateEnd Date Tapan Zazueta MD [address] [place] [address] PCP - GeneralFamily Medicine06/10/24 Ariella Mathis DO [address] [place] [address] Referring PhysicianNeurology2 Aida Reese NP [address] [place] [address] [facility] Pract[facility] Medicine06/10/24Team MemberRelationshipSpecialtyStart DateEnd Date Tapan Zazueta MD [address] [place] [address] PCP - [facility] Medicine06/10/24 Ariella Mathis DO [address] [place] [address] Referring PhysicianNeurolog01/02/24 Aida Reese NP [address] [place] [address] [facility]06/10/24 Team Status: Active Member Role Status Dates Aida Reese NURSE CHARGE RN-C Primary Care Provider Ac tive Team Status: Active Member Role Status Dates Aida Reese NURSE CHARGE RN-C Primary Care Provider Ac tive Start: June 29, 2024 Yunior Stock DOAttkarla ProviderActiveStart: June 29, 2024 Team Status: Active Member Role Status Dates Aida Reese NURSE CHARGE RN-C Primary Care Provider Ac tive Start: August 08, 2024 End: August 12olivier Stock DOAttending ProviderActiveStart: August 08, 2024 End: August 12, 2024Bryant Lora ProviderActiveStart: August 08, 2024 End: August 12, 2024 Team Status: Inactive Member Role Status Dates Allan Lacey MD Attending Provider Active Start: September 05, 2024 End: September 05chase Reese NP-[facility] ProviderActive Start: September 05, 2024 End: September 05, 2024Team MemberRelationshipSpecialtyStart DateEnd Date Tapan Zazueta MD [address] [place] [address] PCP - [facility]06/10/24 Ariella Mathis DO [address], [place] [id number] Referring PhysicianNeurology2 Aida Reese NP [address] [place] [address] Nurse PractitionerMer[facility] Medicine06/10/24Team MemberRelationshipSpecialtyStart DateEnd Date Tapan Zazueta MD [address] [place] [address] PCP - [facility] Medicine06/10/24 Ariella Mathis DO [address] [place] [address] Referring PhysicianNeurology2 Aida Reese NP [address] [place] [address] Nurse Pract[facility] Medicine06/10/24Team MemberRelationshipSpecialtyStart DateEnd Date Tapan Zazueta MD [address] [place] [address] PCP - Generalmily Medicine06/10/24 Ariella Mathis DO [address] [place] [address] Referring PhysicianNeurolog01/02/24 Aida Reese NP [address] [place] [address] [facility] Pract[facility] Medicine06/10/24Team MemberRelationshipSpecialtyStart DateEnd Date Tapan Zazueta MD [address] [place] [address] PCP - [facility] Medicine06/10/24 Ariella Mathis DO [address] [place] [address] Referring PhysicianNeurology2 Aida Reese NP [address] [place] [address] Nurse Pract[facility] Medicine06/10/24Team MemberRelationshipSpecialtyStart DateEnd Date Tapan Zazueta MD [address] [place] [address] PCP - [facility] Medicine06/10/24 Ariella Mathis DO [address] [place] [address] Referring PhysicianNeurology2 Aida Reese NP [address] [place] [address] Nurse Pract[facility] Medicine06/10/24Team MemberRelationshipSpecialtyStart DateEnd Date Tapan Zazueta MD [address] [place] [address] PCP - [facility] Medicine06/10/24 Ariella Mathis DO [address] [place] [address] Referring PhysicianNeurology2 Aida Reese, RIKKI [address] [place] [address] Nurse Pract[facility]er[facility]06/10/24Te MemberRelationshipSpecialtyStart DateEnd Date Tapan Zazueta MD [address] [place] [address] PCP - [facility] Medicine06/10/24 Ariella Mathis DO [address] [place] [address] Referring PhysicianNeurology2 Aida Reese, RIKKI [address] [place] [address] Nurse Pract[facility] Medicine06/10/24Te MemberRelationshipSpecialtyStart DateEnd Date Tapan Zazueta MD [address] [place] [address] PCP - Generalmily Medicine06/10/24 Ariella Mathis DO [address] [place] [address] Referring PhysicianNeurolog01/02/24 Aida Reese NP [address] [place] [address] Nurse Pract[facility]06/10/24Team MemberRelationshipSpecialtyStart DateEnd Date Tapan Zazueta MD [address] [place] [address] PCP - [facility]06/10/24 Ariella Mathis DO [address] [place] [address] Referring PhysicianNeurolog01/02/24 Aida Reese NP [address] [place] [address] Nurse Pract[facility]erP[facility]06/10/24Team MemberRelationshipSpecialtyStart DateEnd Date Tapan Zazueta MD [address] [place] [address] PCP - [facility] Medicine06/10/24 Ariella Mathis DO [address] [place] [address] Referring PhysicianNeurology2 Aida Reese NP [address] [place] [address] Nurse Practitionermily Medicine06/10/24Team MemberRelationshipSpecialtyStart DateEnd Date Tapan Zazueta MD [address] [place] [address] PCP - GeneralFamily Medicine06/10/24 Ariella Mathis DO [address] [place] [address] Referring PhysicianNeurology2 Aida Reese, RIKKI [address] [place] [address] [facility] Medicine06/10/24Team MemberRelationshipSpecialtyStart DateEnd Date Tapan Zazueta MD [address] [place] [address] PCP - Generalmily Medicine06/10/24 Ariella Mathis DO [address] [place] [address] Referring PhysicianNeurology2 Aida Reese, RIKKI [address] [place] [address] Nurse Pract[facility] Medicine06/10/24Team MemberRelationshipSpecialtyStart DateEnd Date Tapan Zazueta MD [address] [place] [address] PCP - Generalmily Medicine06/10/24 Ariella Mathis DO [address] [place] [address] Referring PhysicianNeurolog01/02/24 Aida Reese NP [address] [place] [address] [facility]06/10/24Team MemberRelationshipSpecialtyStart DateEnd Date Tapan Zazueta MD [address] [place] [address] PCP - [facility] Medicine06/10/24 Ariella Mathis DO [address] [place] [address] Referring PhysicianNeurology2 Aida Reese, RIKKI [address] [place] [address] [facility]06/10/24Team MemberRelationshipSpecialtyStart DateEnd Date Tapan Zazueta MD [address] [place] [address] PCP - [facility] Medicine06/10/24 Ariella Mathis DO [address] [place] [address] Referring PhysicianNeurology2 Aida Reese NP [address] [place] [address] [facility] Medicine06/10/24 Team Status: Inactive Member Role Status Dates Allan Lacey MD Attending Provider Active Start: September 12, 2024 End: September 12chase Reese NP-[place] Care ProviderActive Start: September 12, 2024 End: September 12, 2024Team MemberRelationshipSpecialtyStart DateEnd Date Tapan Zazueta MD [address] [place] [address] PCP - [facility] Medicine06/10/24 Ariella Mathis DO [address] [place] [address] Referring PhysicianNeurology2 Aida Reese NP [address] [place] [address] [facility]06/10/24Team MemberRelationshipSpecialtyStart DateEnd Date Tapan Zazueta MD [address] [place] [address] PCP - [facility] Medicine06/10/24 Ariella Mathis DO [address] [place] [address] Referring PhysicianNeurology2 Aida Reese NP [address] [place] [address] [facility] Medicine06/10/24Team MemberRelationshipSpecialtyStart DateEnd Date Tapan Zazueta MD [address] [place] [address] PCP - [facility] Medicine06/10/24 Ariella Mathis DO [address] [place] [address] Referring PhysicianNeurology2 Aida Reese, RIKKI [address] [place] [address] [facility]06/10/24Team MemberRelationshipSpecialtyStart DateEnd Date Tapan Zazueta MD [address] [place] [address] PCP - [facility] Medicine06/10/24 Ariella Mathis DO [address], [place] [address] Referring PhysicianNeurology2 Aida Reese, RIKKI [address] [place] [address] [facility] Medicine06/10/24Team MemberRelationshipSpecialtyStart DateEnd Date Tapan Zazueta MD [address] [place] [address] PCP - [facility] Medicine06/10/24 Ariella Mathis DO [address] [place] [address] Referring PhysicianNeurolog01/02/24 Aida Reese NP [address] [place] [address] [facility]06/10/24Team MemberRelationshipSpecialtyStart DateEnd Date Tapan Zazueta MD [address] [place] [address] PCP - [facility] Medicine06/10/24 Ariella Mathis DO [address] [place] [address] Referring PhysicianNeurolog01/02/24 Aida Reese NP [address] [place] [address] [facility]06/10/24Team MemberRelationshipSpecialtyStart DateEnd Date Tapan Zazueta MD [address] [place] [address] PCP - [facility] Medicine06/10/24 Ariella Mathis DO [address] [place] [address] Referring PhysicianNeurology2 Aida Reese NP [address] [place] [address] Nurse [facility]06/10/24Team MemberRelationshipSpecialtyStart DateEnd Date Tapan Zazueta MD [address] [place] [address] PCP - Generalmily Medicine06/10/24 Ariella Mathis DO [address] [place] [address] Referring PhysicianNeurology2 Aida Reese NP [address] [place] [address] [facility] Medicine06/10/24Team MemberRelationshipSpecialtyStart DateEnd Date Tapan Zazueta MD [address] [place] [address] PCP - Generalmi Medicine06/10/24 Ariella Mathis DO [address] [place] [address] Referring PhysicianNeurolog01/02/24 Aida Reese NP [address] [place] [address] Nurse Pract[facility]06/10/24Team MemberRelationshipSpecialtyStart DateEnd Date Tapan Zazueta MD [address] [place] [address] PCP - [facility] Medicine06/10/24 Ariella Mathis DO [address] [place] [address] Referring PhysicianNemahamedlogy2 Aida Reese NP [address] [place] [address] [facility]er[facility] Medicine06/10/24Team MemberRelationshipSpecialtyStart DateEnd Date Tapan Zazueta MD [address] [place] [address] PCP - GeneralFamily Medicine06/10/24 Ariella Mathis DO [address] [place] [address] Referring PhysicianNeurology2 Aida Reese NP [address] [place] [address] [facility]06/10/24Team MemberRelationshipSpecialtyStart DateEnd Date Tapan Zazueta MD [address] [place] [address] PCP - Generalmily Medicine06/10/24 Arilela Mathis DO [address] [place] [address] Referring PhysicianNeurology2 Aida Reese NP [address] [place] [address] [facility] Medicine06/10/24Team MemberRelationshipSpecialtyStart DateEnd Date Tapan Zazueta MD [address] [place] [address] PCP - Generalmily Medicine06/10/24 Ariella Mathis DO [address] [place] [address] Referring PhysicianNeurology2 Aida Reese NP [address] [place] [address] [facility]06/10/24Team MemberRelationshipSpecialtyStart DateEnd Date Tapan Zazueta MD [address] [place] [address] PCP - GeneralFamily Medicine06/10/24 Ariella Mathis DO [address] [place] [address] Referring PhysicianNeurology2 Aida Reese NP [address] [place] [address] [facility] Medicine06/10/24Team MemberRelationshipSpecialtyStart DateEnd Date Tapan Zazueta MD [address] [place] [address] PCP - GeneralFamily Medicine06/10/24 Ariella Mathis DO [address] [place] [address] Referring PhysicianNeurology2 Aida Reese NP [address] [place] [address] [facility] Medicine06/10/24Team MemberRelationshipSpecialtyStart DateEnd Date Tapan Zazueta MD [address] [place] [address] PCP - Generalmily Medicine06/10/24 Ariella Mathis DO [address] [place] [address] Referring PhysicianNeurology2 Aida Reese NP [address] [place] [address] [facility] Medicine06/10/24Team MemberRelationshipSpecialtyStart DateEnd Date Tapan Zazueta MD [address] [place] [address] PCP - Generalmi Medicine06/10/24 Ariella Mathis DO [address] [place] [id number] Referring PhysicianNeurolog01/02/24 Aida Reese NP [address] [place] [address] Nurse [facility]06/10/24Team MemberRelationshipSpecialtyStart DateEnd Date Tapan Zazueta MD [address] [place] [address] PCP - [facility] Medicine06/10/24 Ariella Mathis DO [address] [place] [address] Referring PhysicianNemahamedlogy2 Aida Reese NP [address] [place] [address] Nurse Pract[facility] Medicine06/10/24Team MemberRelationshipSpecialtyStart DateEnd Date Tapan Zazueta MD [address] [place] [address] PCP - GeneralFamily Medicine06/10/24 Ariella Mathis DO [address] [place] [address] Referring PhysicianNeurology2 Aida Reese NP [address] [place] [address] Nurse [facility]06/10/24Team MemberRelationshipSpecialtyStart DateEnd Date Tapan Zazueta MD [address] [place] [address] PCP - Generalmi Medicine06/10/24 Ariella Mathis DO [address] [place] [address] Referring PhysicianNeurology2 Aida Reese NP [address] [place] [address] [facility]06/10/24Team MemberRelationshipSpecialtyStart DateEnd Date Tapan Zazueta MD [address] [place] [address] PCP - [facility] Medicine06/10/24 Ariella Mathis DO [address] [place] [id number] Referring PhysicianNeurology2 Aida Reese NP [address] [place] [address] [facility]06/10/24Team MemberRelationshipSpecialtyStart DateEnd Date Tapan Zazueta MD [address] [place] [address] PCP - GeneralFamily Medicine06/10/24 Ariella Mathis DO [address] [place] [address] Referring PhysicianNeurology2 Aida Reese NP [address] [place] [address] [facility] Pract[facility] Medicine06/10/24Team MemberRelationshipSpecialtyStart DateEnd Date Tapan Zazueta MD [address] [place] [address] PCP - GeneralFamily Medicine06/10/24 Ariella Mathis DO [address] [place] [address] Referring PhysicianNeurology2 Aida Reese NP [address] [place] [address] [facility] Medicine06/10/24Team MemberRelationshipSpecialtyStart DateEnd Date Tapan Zazueta MD [address] [place] [address] PCP - [facility] Medicine06/10/24 Ariella Mathis DO [address] [place] [address] Referring PhysicianNeurology2 Aida Reese NP [address] [place] [address] Nurse Pract[facility]06/10/24Team MemberRelationshipSpecialtyStart DateEnd Date Tapan Zazueta MD [address] [place] [address] PCP - [facility] Medicine06/10/24 Ariella Mathis DO [address] [place] [address] Referring PhysicianNeurolog01/02/24 Aida Reese NP [address] [place] [address] Nurse Pract[facility]06/10/24 Team Status: Active Member Role Status Dates Kaylene López NP-[place] Primary Care Provider Active Team Status: Active Member Role Status Dates KELI Ag Primary Care Provider Ac tive Start: July 09, 2025 Farhan Mcbride ProviderActiveStart: July 09, 2025 Team Status: Inactive Member Role Status Dates Kaylene López NP-[place] Primary Care Provider Active Start: July 17, 2025 End: July 17, 2025FAMILIA SextonCAttending ProviderActiveStart: July 17, 2025 End: July 17, 2025 Team Status: Active Member Role Status Dates Kaylene J Aichholz , NURSE CHARGE RN-C Primary Care Provider Active Start: July 18, 2025 Kaylene López NURSE CHARGE RN-CAttending ProviderActiveStart: July 18, 2025 Team Status: Inactive Member Role Status Dates Kaylene López NURSE CHARGE RN-C Primary Care Provider Active Start: August 04, 2025 End: August 04, 2025Kaylene López NURSE CHARGE RN-CAttending ProviderActiveStart: August 04, 2025 End: August 04, 2025Team MemberRelationshipSpecialtyStart DateEnd Date Tapan Zazueta MD [address] [place] [address] PCP - [facility] Medicine06/10/24 Ariella Mathis DO [address] [place] [address] Referring PhysicianNeurolog01/02/24 Aida Reese NP [address] [place] [address] [facility] Medicine06/10/24 Team Status: Inactive Member Role Status Dates Kaylene López NURSE CHARGE RN-C Primary Care Provider Active Start: August 18, 2025 End: August 18, 2025Kaylene López NP-CAttending ProviderActiveStart: August 18, 2025 End: August 18, 2025Team MemberRelationshipSpecialtyStart DateEnd Date Shaikh Ohara MD PCP - [facility] Tapan Zazueta MD [address] [place] [address] PCP - [facility]06/10/24 Ariella Mathis DO [address] [place] [address] Referring PhysicianNeurology2 Aida Reese NP [facility] Pract[facility]er[facility] Medicine06/10/24Team MemberRelationshipSpecialtyStart DateEnd Date Shaikh Ohara MD PCP - GeneralInternal Medicine Tapan Zazueta MD [address] [place] [address] PCP - GeneralFamily Medicine06/10/24 Ariella Mathis DO [address] [place] [address] Referring PhysicianNeurology2 Aida Reese NP [facility]06/10/24Team MemberRelationshipSpecialtyStart DateEnd Date Shaikh Ohara MD PCP - GeneralInternal Medicine Shaikh Ohara MD PCP - GeneralInternal Medicine Tapan Zazueta MD [address] [place] [address] PCP - GeneralFamily Medicine06/10/24 Ariella Mathis DO [address] [place] [address] Referring PhysicianNeurolog01/02/24 Aida Reese NP Nurse PractitionerFawaly Medicine06/10/24 Goals (unrecognized section and content) Goals may [...] BE BASED ON THE PRIMARY CLINICAL RECORDS. [employer] provides no warranty or guarantee of the accuracy or completeness of information in this document.
--- OUTSIDE RECORDS SUMMARY | 2025-09-14 11:28 | XMS_ITS | Clinical Summary ---
Author Organization [facility] Address [address] [place] [address] Care Team Providers Care Cray Fishing Hand Name Role Phone Ariella Mathis DO Unavailable [phone] Tapan Barboza MD Primary Care Provider [phone] Mae Reese AGRIBUSINESS PROFESSOR Unavailable [phone] Allergies Active AllergyReactionsCriticalityNoted LuhfRdboiscbGfxvinlp54/01/2017 Other Reaction(s): Hallucinating NtiwzfxgecRxmbvkp35/31/2024 Medications MedicationSigDispense QuantityRefillsLast FilledStart DateEnd DateStatus montelukast [...] 5Active Active Problems ProblemNoted DateDiagnosed DateCandidiasis of ltldrr6905/19/2025Skin pustule 05/19/2025Exacerbation of aypxih0504/09/2025Rheumatoid arthritis, unspecified 02/17/2025 Assessment & Plan (02/17/2025 6:10 AM EDT): Has a diagnosis of this Edema of both lower qindzlyxacl32/14/2025 Assessment & Plan (02/17/2025 9:03 AM EDT): Elevate legs Compression stockings Fu in 4 weeks, call office if worsening Clyhccaarar03/14/2025ody mass index (BMI) 40.0-44.9, adult01/02/2025Mixed sajscylbtcqy17/27/2025Primary HSV infection of mouth11/12/2024Neoplasm of uncertain behavior of chest wall10/07/2024 Assessment & Plan (10/07/2024 3:09 PM EST): Lesion of uncertain behavior middle chest- tried popping it two weeks ago, area has now become reddened. Area is closed, raised, and reddened with thin scab in place. Referral sent to Dermatology. Screening mammogram for breast urojtu3402/15/2024neumonia due to infectious bmwttocj31/11/2024 Assessment & Plan (01/16/2025 6:30 AM EDT): Respiratory panel: culture pseudomonas Was sent home on doxy, will have her stop this, and start levoquin 750mg daily for 7 day Recent hospitalization to [facility]: back to back, 01/02/25 and 01/08/25 I [...] 2 weeks Chronic low back pain without ogrzmass98/21/2024 Assessment & Plan (01/31/2024 11:31 AM EDT): [...] for acute pain Chronic respiratory failure with terigeq0712/28/2023 Assessment & Plan (04/09/2025 6:31 AM EDT): Is oxygen dependant, non invasive vent at night 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 However, she was on steroids at that time. Recheck. Fawavhwnbtaap75/30/2024Other chronic pain12/05/2023rthropathy of right hip 12/05/2023rimary osteoarthritis of right knee12/05/2023Spinal stenosis, lumbar region without neurogenic zogsuuknfztu08/30/2024 Assessment & Plan (02/17/2025 9:01 AM EDT): Continue with lyrica and pain mgmt Spondylosis of lumbar region without myelopathy or qjrfmsirbtgnx58/30/2024 Mkfhoppznkr24/30/2024Severe persistent asthma, hbpjmcftpkfmo39/30/2024 Assessment & Plan (02/17/2025 6:09 AM EDT): [...] severe persistent asthma and was discharged from [facility] 3 days ago for acute respiratory failure [...] hospital right away. Medicare annual wellness visit, gvltlbujmt40/01/2024 Assessment & Plan (11/06/2023 6:14 PM EST): Here for Medicare Wellness. Screened for depression, cognitive impairment, fall risk Ordered cologuard for the patient. Mammogram not due. Will order next appt. Osteoporosis ysghbbfts06/29/8853Gegsrvjip04/29/2023hronic heart failure with preserved ejection zkamzdnn40/29/2023 Assessment & Plan (02/17/2025 6:07 AM EDT): [...] & Plan (01/02/2025 3:25 PM EST): Chris electrode cleaner Assessment & Plan (11/28/2024 1:37 PM EST): Was admitted to [facility] for COPD with acute exacerbation. Was treated [...] with dr perez Malignant neoplasm of rectosigmoid deszxfav03/29/2023 Assessment & Plan (01/02/2025 7:24 AM EST): Hx of this Ynzyzcqxot13/29/2023 Assessment & Plan (05/19/2025 9:20 AM EDT): [...] concerns related to new medications. Gastroesophageal reflux vodcfjs5310/04/2023 Assessment & Plan (02/17/2025 6:09 AM EDT): [...] Elevate HOB if possible Current meds: omeprazole Htheljnxiveyja72/29/2023 Assessment & Plan (07/11/2024 8:55 AM EDT): Currently not on any medications: Lifestyle and dietary modifications. Recheck lipid pane today. Iron deficiency iiyqoc5110/04/2023Morbid (severe) obesity due to excess calories 10/04/2023 [...] contraindicated). Limit sodas, juices, and sugary drinks. Post-eukqkqckac76/29/2023Restless leg jrvdxryo71/29/2023Urge incontinence 10/04/2023 Assessment & Plan (01/02/2025 7:25 AM EST): Take vesicare Vitamin D lbsdsbregs86/29/2023ritical illness luxlfuxz76/03/2023History of COVID-1907Other secondary pulmonary phuzyqsqruyk06/03/2023 Assessment & Plan (01/16/2025 6:34 AM EDT): Noted on ECHO findings 05/29 Primary osteoarthritis of right hip03/26/2023hronic qjmfvplih85/27/2014 Essential azsqwngzbdjd12/27/2014 Assessment & Plan (05/19/2025 6:23 AM EDT): [...] closely. Resolved Problems ProblemNoted DateDiagnosed DateResolved DateFlu-like jtdutptm27/27/2025 01/16/2025 Assessment & Plan (01/02/2025 3:28 PM EST): Neg, still strong clinical suspicion for flu, d/t severe pulmonary conditions and weakness will send her to [facility] ER for evaluation DD: pneumonia, covid, flu, RSV Severe persistent asthma with zdsooqaggfib94 Assessment & Plan (04/11/2024 2:33 PM EDT): [...] prednisone, I directed her to go to [facility] for direct admission. I spoke to case [...] may have developed CKD. Check BMP. Atrial khzmtaiucyvv06MalaiseStatus post total right knee grulyuproqh88Hospital discharge follow-up / Assessment & Plan (06/12/2024 [...] with Pulm and she will discuss possibly care home prednisone for her severe Asthma/COPD. Patient [...] 10:34 AM EST): Recent hospital admission at [facility] for acute resp failure due to Pneumonia, [...] will also inform the ED provider at [facility] andupdate them on the reason for ED visit. Luqlfy06 Assessment & Plan (03/27/2024 9:57 AM EDT): [...] Chronic back pain greater than 3 months yxryahwl93Low back painPositive depression cxtlgbtyv34Right hip painModerate persistent asthma with exacerbation Assessment [...] finished her oral abx prescribed by her electrode cleaner. Continues to have bronchospasm, wheezing, chest tightness [...] both ears without spontaneous rupture of tympanic vjmglrema99/ Assessment & Plan (10/04/2023 3:15 PM EST): B/l otitis media noted on exam. Will call in oral Augmentin for patient. Disc displacement, Overview (12/05/2023): Added automatically from request for surgery [id number] Added automatically from request for surgery [id number] Arthritis of right kneeLumbar zrfinrebzjy89/17/2018 04/09/2025 Overview (12/05/2023): Added automatically from request for surgery [id number] Added automatically from request for surgery [id number] Encounters DateTypeDepartmentCare FivvTjzyboburxd46/29/2025External Result Encounter [facility] External Department Unsolicited Kaylene López NP 07/16/2025 2:45 PM EDTOffice Visit [facility] [address] [place] [address] Denise Lazo MD Seborrheic keratosis (Primary Dx); Lentigines; History of SCC (squamous cell carcinoma) of skin07/16/2025amboo [facility]sheet [facility] [address] [place] [address] Denise Lazo MD 07/16/20253770Tvbvpi51/13/2025Refill [facility] [address] [place] [address] Kaylene López NP Moderate episode of recurrent major depressive disorder (HCC)06/16/2025[facility] [address] [place] [address] Kaylene López NP from Last 3 Months Immunizations ImmunizationAdministration DatesNext DueInfluenza, High Dose Seasonal, Preservative Free09/06/2024Influenza, High-dose Seasonal, Quadrivalent, Preservative Free08/26/2023,08/04/2022,08/06/2021Influenza, Split (incl. purified surface antigen)08/09/2017Influenza, Zrywumrknxu93/01/2024,08/26/2023, 08/04/2022,08/06/2021,08/07/2020,08/09/2019,08/08/2018,08/10/2017Influenza, injectable, quadrivalent, preservative free08/07/2020,08/09/2019,08/08/2018, 08/10/2017Novel gcjhfayks-H0C5-68, preservative-free09/02/2009Pneumococcal Conjugate PCV 3Pneumococcal Polysaccharide HJEC856912/20/2017RSV, recombinant, protein subunit RSVpreF, adjuvant reconstitu, 120mcg/0.5mL, PF (Arexvy)08/18/2023Zoster, Ekdvuqgllnm75/27/2022,08/27/2022 Family History Medical HistoryRelationNameCommentsCOPDFatherHeart diseaseFatherHyperlipidemia FatherHypertensionFatherStrokeFatherHeart diseaseMotherHyperlipidemiaMother HypertensionMotherMental fljxyqlGaeppxGueddtqzYnxuEameijFzxbolndCihbgiizi8Noqocx DeceasedMotherDeceasedSonx5 Social History Tobacco UseTypesPacks/DayYears UsedDateSmoking Tobacco: NeverPassive Smoke Exposure: NeverSmokeless Tobacco: Never Tobacco Cessation:Counseling Given: Not Answered Alcohol UseStandard Drinks/WeekCommentsNever0 (1 standard drink = 0.6 oz pure alcohol)caffeine: more than 4 cups per ftbX2687 Health LiteracyAnswerDate RecordedHow often do you need [...] times a week11/25/2024How often do you attend bahai or evangelical services?More than 4 times per year 11/25/2024Do you belong to any clubs or organizations such as bahai groups, unions, fraternal or athletic groups, or school groups?No11/25/2024How often do you attend meetings of the clubs or organizations you belong to?Never11/25/2024 Are you , , , , never , or living with a partner?Enbrgdqc74/20/2025UDIT-CAnswerDate RecordedQ1: How often do you have a [...] care, and heating?Somewhat hard11/25/2024PHQ-2AnswerDate RecordedPatient Health Questionnaire-2 Mlspw692[facility] of Occupational Health - Occupational Stress QuestionnaireAnswerDate RecordedDo you feel stress - tense, restless, nervous, or anxious, or unable to sleep at night because yourmind is troubled all the time - these days?Only a eemxfh3211/25/2024Exercise Vital Sign AnswerDate RecordedOn average, how many [...] steady place to sleep or slept in savannahelter (including now)?No 10/26/2023Housing Stability Vital SignAnswerDate RecordedIn the last 12 months, was there a time when you were not able to pay the mortgage or rent on time?No 11/25/2024In the past 12 months, how many times have you moved where you were living?t any time in the past 12 months, were you homeless or living in a care home (including now)?No11/25/2024CommentsUnknownSex and Gender InformationValueDate RecordedSex Assigned at BirthNot on fileLegal SexFemale 01/18/2023 7:03 PM EDTGender IdentityNot on fileSexual OrientationNot on file Last Filed Vital Signs Vital SignReadingTime TakenCommentsBlood Thfmrzfq901/7607 8:43 AM EDT Ycxwc057705/19/2025 8:43 AM QERChwwgpljnor17.9 ??C (98.5 ??F)05/19/2025 8:43 AM EDTRespiratory Cccr087305/19/2025 8:43 AM EDTOxygen Dnxigqkodg91%05/19/2025 8:43 AM EDTInhaled Oxygen Concentration--Kwjhek832 kg (236 lb 6.4 oz)05/19/2025 8:43 AM DGXMhzjnv850.6 cm (5' 4 )11/28/2024 1:08 PM ESTBody Mass Index40.58011/28/2024 1:08 PM EST Plan of Treatment DateTypeDepartmentCare Team (Latest Contact Info)Kghsuedzoxp36/10/2026 8:45 AM EDTOffice Visit [facility] [address] [place] [address] Denise Lzao MD [address] [place] [address] 12/15/2026 9:00 AM ESTOffice Visit [facility] [address] [facility] [place] [address] Yuri Bowers PA [address] [place] [address] Health MaintenanceDue DateLast DoneCommentsCT Bsfqhyrvelyh1955FIT-DNA 1955FIT1955FOBT08/03/19560254Hbndbuyopwlaq1956OVID-19 Vaccine ( season)/, 03/25/2022, 09/06/2021, Additional history existsInfluenza Vaccine (#1)/11/2023, 09/06/2024, 08/26/2023, Additional history gicyqwAmamdrbrg80/28/202604/, 02/29/2024, 12/15/2022, Additional history tbmjniJhjrcpmfivw04/02/203302/olorectal Cancer Vdoniyxwa02/02/2033Pneumococcal Vaccine: 65+ XnjofIavncjpuo30/04/2023, 10/19/2018 Goals GoalPatient Goal TypeAssociated ProblemsRecent ProgressPatient-Stated?Author Help patient manage antidepressant medication Care PlanPatient on antidepressant monitoring Katerina Peraza Procedures Procedure NamePriorityDate/TimeAssociated DiagnosisCommentsGASTROINTESTINAL NVGBVVegpqbq73/29/2025 10:54 AM EDT BI MAMMOGRAM SCREENING YDRNAXQBI83/28/2025 4:42 PM EDT from Last 3 Months or Most Recently Relevant to Health Maintenance Results * Gastrointestinal panel (08/04/2025 10:54 AM EDT)ComponentValueRef RangeTest MethodAnalysis TimePerformed AtPathologist SignatureYERSINIA ENTEROCOLITICA (GASTROINTESTINAL)023.000 - 33.092 ppm08/05/2025 9:08 AM EDTHealthTrackRx at LabPortYERSINIA ENTEROCOLITICA (GASTROINTESTINAL)Not Exyuzfyr19.000 - 33.092 ppm08/05/2025 9:08 AM EDTHealthTrackRx at LabPortVIBRIO CHOLERAE, PARAHAEMOLYTICUS, VULNIFICUS (GASTROINTESTINAL)023.000 - 31.311 ppm08/05/2025 9:08 AM EDTHealthTrackRx at LabPortVIBRIO CHOLERAE, PARAHAEMOLYTICUS, VULNIFICUS (GASTROINTESTINAL)Not Cczteibi37.000 - 31.311 ppm08/05/2025 9:08 AM EDTHealthTrackRx at LabPortSALMONELLA ENTERICA (GASTROINTESTINAL)023.000 - 30.960 ppm08/05/2025 9:08 AM EDTHealthTrackRx at LabPortSALMONELLA ENTERICA (GASTROINTESTINAL)Not Jcppjkxs63.000 - 30.960 ppm08/05/2025 9:08 AM EDT [facility] at LabPortROTAVIRUS A, B (GASTROINTESTINAL)023.000 - 31.736 ppm 08/05/2025 9:08 AM EDTHealthTrackRx at LabPortROTAVIRUS A, B (GASTROINTESTINAL)Not Kyjlwial39.000 - 31.736 ppm08/05/2025 9:08 AM EDT [facility] at LabPortNOROVIRUS (GENOGROUP 1, 2) (GASTROINTESTINAL)023.000 - 30.251 ppm08/05/2025 9:08 AM EDTHealthTrackRx at LabPortNOROVIRUS (GENOGROUP 1, 2) (GASTROINTESTINAL)Not Upjworat69.000 - 30.251 ppm08/05/2025 9:08 AM EDT [facility] at LabPortENTEROINVASIVE E. COLI (EIEC) / SHIGELLA SPP. (GASTROINTESTINAL)019.691 - 24.689 ppm08/05/2025 9:08 AM EDTHealthTrackRx at LabPortENTEROINVASIVE E. COLI (EIEC) / SHIGELLA SPP. (GASTROINTESTINAL)Not Yrngfdbe85.691 - 24.689 ppm08/05/2025 9:08 AM EDTHealthTrackRx at LabPort CLOSTRIDIUM DIFFICILE (TOXIN A/B) (GASTROINTESTINAL)019.691 - 24.689 ppm 08/05/2025 9:08 AM EDTHealthTrackRx at LabInd[facility] HospitalCLOSTRIDIUM DIFFICILE (TOXIN A/B) (GASTROINTESTINAL)Not Bvmtpkmu09.691 - 24.689 ppm08/05/2025 9:08 AM EDT [facility] at LabInd[facility] HospitalCAMPYLOBACTER JEJUNI, COLI (GASTROINTESTINAL)023.000 - 31.263 ppm08/05/2025 9:08 AM EDTHealthTrackRx at LabInd[facility] HospitalCAMPYLOBACTER JEJUNI, COLI (GASTROINTESTINAL)Not Vkuwdoii89.000 - 31.263 ppm08/05/2025 9:08 AM EDT [facility] TOXIN- PRODUCING E. COLI (STEC) (GASTROINTESTINAL)019.691 - 24.689 ppm08/05/2025 9:08 AM EDTHealthTrackRx at [facility] HospitalSHIGA TOXIN- PRODUCING E. COLI (STEC) (GASTROINTESTINAL)Not Detected 19.691 - 24.689 ppm08/05/2025 9:08 AM EDTHealthTrackRx at LabEle[facility] HospitalA TOXIN- PRODUCING E. COLI O157 (STEC O157) (GASTROINTESTINAL)019.691 - 24.689 ppm 08/05/2025 9:08 AM EDTHealthTrackRx at [facility] TOXIN- PRODUCING E. COLI O157 (STEC O157) (GASTROINTESTINAL)Not Oslckvfh41.691 - 24.689 ppm08/05/2025 9:08 AM EDTHealthTrackRx at LabInd[facility] HospitalCLOSTRIDIUM WRJAUZRSVAK698.691 - 24.689 ppm 08/05/2025 9:08 AM EDTHealthTrackRx at LabPortCLOSTRIDIUM PERFRINGENSNot Bpurrcrv95.691 - 24.689 ppm08/05/2025 9:08 AM EDTHealthTrackRx at [facility]Port CRYPTOSPORIDIUM SPP (PARVUM, HOMINIS, RAN) (GASTROINTESTINAL)023.000 - 30.806 ppm08/05/2025 9:08 AM EDTHealthTrackRx at LabPortCRYPTOSPORIDIUM SPP (PARVUM, HOMINIS, RAN) (GASTROINTESTINAL)Not Vutyompv07.000 - 30.806 ppm 08/05/2025 9:08 AM EDTHealthTrackRx at LabPortCYCLOSPORA CAYETANENSIS, CYSTOISOSPORA MELODIE (GASTROINTESTINAL)023.000 - 31.921 ppm08/05/2025 9:08 AM EDTHealthTrackRx at LabPortCYCLOSPORA CAYETANENSIS, CYSTOISOSPORA MELODIE (GASTROINTESTINAL)Not Aosxbais00.000 - 31.921 ppm08/05/2025 9:08 AM EDT [facility] at LabPortDIENTAMOEBA FRAGILIS, ENTAMOEBA HISTOLYTICA (GASTROINTESTINAL)023.000 - 32.477 ppm08/05/2025 9:08 AM EDTHealthTrackRx at LabPortDIENTAMOEBA FRAGILIS, ENTAMOEBA HISTOLYTICA (GASTROINTESTINAL)Not Rohrwfke39.000 - 32.477 ppm08/05/2025 9:08 AM EDTHealthTrackRx at LabPort ENTAMOEBA OEQDZKPSVQD809.000 - 32.285 ppm08/05/2025 9:08 AM EDTHealthTrackRx at LabPortENTAMOEBA HISTOLYTICANot Yvhetbbt69.000 - 32.285 ppm08/05/2025 9:08 AM EDTHealthTrackRx at LabPortGIARDIA LAMBLIA (INTESTINALIS) (GASTROINTESTINAL)023.000 - 33.080 ppm08/05/2025 9:08 AM EDTHealthTrackRx at LabPortGIARDIA LAMBLIA (INTESTINALIS) (GASTROINTESTINAL)Not Byoosejc41.000 - 33.080 ppm08/05/2025 9:08 AM EDTHealthTrackRx at LabPortMICROSPORIDIUM (ENTEROCYTOZOON BIENEUSI, ENCEPHALITOZOON INTESTINALIS) (GA023.000 - 31.963 ppm08/05/2025 9:08 AM EDTHealthTrackRx at LabPortMICROSPORIDIUM (ENTEROCYTOZOON BIENEUSI, ENCEPHALITOZOON INTESTINALIS) (GANot Msdqmzos20.000 - 31.963 ppm08/05/2025 9:08 AM EDTHealthTrackRx at [facility] HospitalSpecimen (Source) Anatomical Location / LateralityCollection Method / VolumeCollection Time Received FnfnWpxwatd66/29/2025 10:54 AM EDT08/05/2025 1:44 AM EDT Narrative Authorizing ProviderResult TypeResult StatusLisa Aichholz NPLAB MICROBIOLOGY - GENERAL ORDERABLESFinal ResultPerforming OrganizationAddressCity/State/ZIP Code Phone Number [facility] [address] [place] [phone] * Bilateral screening mammogram (03/03/2025 4:42 PM EDT)Anatomical Region LateralityModalityBreastBilateralMammographySpecimen (Source)Anatomical Location / LateralityCollection Method / VolumeCollection TimeReceived Time 03/03/2025 4:42 PM EDT Narrative 03/03/2025 4:43 PM EDT [facility] ?[address] ? [place] [address] ? Mammography Report ? Signed ? Patient: CHAMPION,DIANA A ?MR#: [id number] ?? : 1955 ?Acct:[id number] ?? Age/Sex: 69 / F ?ADM Date: 03/03/ ?? Loc: MAMMO ? Attending Dr: Kaylene López AGRIBUSINESS PROFESSOR ? Ordering Physician: Kaylene López AGRIBUSINESS PROFESSOR ?Results: ? Date of Service: 03/03/ ?Follow Up: ? Procedure(s): MM screening mammo BI ?? Accession Number(s): [id number] ? cc: Kaylene López AGRIBUSINESS PROFESSOR ? Patient Name: ? DIANA CHAMPION ? MR#: [id number] ? : 1955 ? Exam Date: 03/03/2025 [...] Cancers ? None ? LOCATION: ? [facility] ? BREAST COMPOSITION: ? The breasts are [...] on 03/03/2025 at 16:38 ? Approved by: Marcso Medina DO on 03/03/2025 at 16:42 ? Dictated By: ?Marcos Medina M.D. ? Signed By: ?03/03/25 1643 ? DD/ 164 ? TD/TT: ? Contract Consultant: Procedure Note Radiology, Radiologist, MD - 03/03/2025 [facility] [place] [id number] Mammography Report Signed Patient: DIANA CHAMPION [facility]#: [id number] : 1955cct:[id number] Age/Sex: 69 / FADM Date: 03/03/25 Loc: MAMMO Attending Dr: Kaylene López NP Ordering Physician: Kaylene López NPResults: Date of Service: 03/03/25Follow Up: Procedure(s): MM screening mammo BI Accession Number(s): [id number] cc: Kaylene López NP Patient Name: DIANA CHAMPION MR#: [id number] : 1955 Exam Date: 03/03/2025 Ordering Doctor: CLEO López LINSEED OIL REFINER RADIOLOGY REPORT PROCEDURE: MM SCREENING MAMMO BI COMPARISON: MM TOMOSYNTHESIS SCREENING BI, 02/28/2024. MG MAMM IMTKYG2T PRATE[place] CAD, 12/15/2022. MG MAMM SCREEN 3D PRATEEK CAD, 11/26/2021. MG MAMM BILSCRN W CAD DIG, 12/16/2013. INDICATIONS: Screening Calculator Name NCI Breast Cancer Risk Assessment Tool 5 Year Breast Cancer Risk 1.20% Lifetime Breast Cancer Risk 4.00% Personal Breast Cancer No Personal Ovarian Cancer No Treatments Excision, radiation, chemotherapy Family Cancers None LOCATION: [facility] BREAST COMPOSITION: The breasts are almost [...] Medina M.D. Signed By:03/03/251642 DD/ 41 TD/TT: Contract Consultant: Authorizing ProviderResult TypeResult StatusKaylene López NPIMG BI PROCEDURES Final Result from Last 3 Months or Most Recently Relevant to Health Maintenance Additional Health Concerns Active ProblemsNoted DateDiagnosed DatePatient on antidepressant monitoring plan 07/17/2024 Insurance Care Teams Team MemberRelationshipSpecialtyStart DateEnd Date Tapan Barboza MD [address] [facility] [place] [address] PCP - GeneralFamily Medicine06/10/24 Ariella Mathis DO [address] [place] [address] Referring PhysicianNeurolog01/02/24 Mae Reese NP Nurse PractitionerFamily Medicine06/10/24
--- OUTSIDE RECORDS SUMMARY | 2025-09-14 11:28 | XMS_ITS | Encounter Summary ---
Author Organization [facility] Address [address] [place] [address] Care Team Providers Care Transitional Living Specialist Name Role Phone Shaikh BONNY Ohara Primary Care Provider [phone] Ariella Mathis DO Unavailable [phone] Tapan Barboza MD Primary Care Provider [phone] Mae Reese REDUCER Unavailable [phone] Encounter Details DateTypeDepartmentCare Team (Latest Contact Info)Phmrjhsblrx88/22/2024Clinisync Result Encounter [facility] Unsolicited Shaikh Ohara MD [address] [place] [id number] Social History Tobacco UseTypesPacks/DayYears UsedDateSmoking Tobacco: NeverPassive Smoke Exposure: NeverSmokeless Tobacco: NeverAlcohol UseStandard Drinks/WeekComments Never0 (1 standard drink = 0.6 oz pure alcohol)caffeine: more than 4 cups per aioX1484 Health LiteracyAnswerDate RecordedHow often do you need [...] times a week11/25/2024How often do you attend spiritism or hinduism services?More than 4 times per year 11/25/2024Do you belong to any clubs or organizations such as spiritism groups, unions, fraKidizen or athletic groups, or school groups?No11/25/2024How often do you attend meetings of the clubs or organizations you belong to?Never11/25/2024 Are you , , , , never , or living with a partner?Ormdnmel39/20/2025UDIT-CAnswerDate RecordedQ1: How often do you have a [...] care, and heating?Somewhat hard11/25/2024PHQ-2AnswerDate RecordedPatient Health Questionnaire-2 Isspd639[facility] [place] [facility] - Occupational Stress QuestionnaireAnswerDate RecordedDo you feel stress - tense, restless, nervous, or anxious, or unable to sleep at night because yourmind is troubled all the time - these days?Only a dzvmjk0711/25/2024Exercise Vital Sign AnswerDate RecordedOn average, how many [...] were you homeless or living in a fdc (including now)?No11/25/2024CommentsUnknownSex and Gender InformationValueDate RecordedSex Assigned at BirthNot on fileLegal SexFemale 01/18/2023 7:03 PM EDTGender IdentityNot on fileSexual OrientationNot on file documented as of this encounter Functional Status * AUDIT-C ScoreAnswerDate of NtcpepunatNchwuc378/20/2025 4:37 PM Lucita, Generic * Q1: How often do you have a drink containing alcohol?AnswerDate of Assessment JaembeSohgx27/20/2025 4:37 PM Lucita, Generic * Q2: How many drinks containing alcohol do you have on a typical day when you are drinking?AnswerDate of AssessmentAuthorPatient does not drink11/25/2024 4:37 PM Lucita, Generic * Q3: How often do you have six or more drinks on one occasion?AnswerDate of BrkisiqtrcZwqtuoKblwu07/20/2025 4:37 PM Lucita, Generic * Over the past 2 weeks, how often have you been bothered by any of the following problems?QuestionAnswerDate of AssessmentAuthorLittle interest or pleasure in doing thingsNot at all07/11/2024 8:26 AM Tony Camarillo MA Feeling down, depressed, or hopelessNot at all07/11/2024 8:26 AM Tony Camarillo MAPatient Health Questionnaire-2 Yswvw687 8:26 AM Tony Camarillo MA documented as of this encounter Plan of Treatment DateTypeDepartmentCare Team (Latest Contact Info)Sdjqcymjhvr09/10/2026 8:45 AM EDTOffice Visit [facility] [address] [place] [phone] Denise Lazo MD [address] [place] [address] 12/15/2026 9:00 AM ESTOffice Visit [facility] [address] [place] [address] Yuri Bowers PA [address] [place] [address] documented as of this encounter Procedures Procedure NamePriorityDate/TimeAssociated DiagnosisCommentsXR LUMBAR SPINE 2 OR 3V01/26/2024 7:39 AM EDT documented in this encounter Results * XR LUMBAR SPINE 2 OR 3V (01/26/2024 7:39 AM EDT)Anatomical RegionLaterality ModalityRadiographic ImagingSpecimen (Source)Anatomical Location / Laterality Collection Method / VolumeCollection TimeReceived Time01/26/2024 7:39 AM EDT Narrative 01/26/2024 7:[address] [facility] ?[address] ? [place] [address] ?XRay Report ? Signed ? Patient: DIANA CHAMPION A ?MR#: [id number] ?? : 1955 ?Acct:[id number] ?? Age/Sex: 68 / F ?ADM Date: 01/25/24 ?? Loc: RAD ? Attending Dr: Shaikh Lev Velasquez ? Ordering Physician: Shaikh Eva Ohara ?? Date of Service: 01/25/24 ?? Procedure(s): XR lumbar spine 2-3V ?? Accession Number(s): [id number] ? cc: Shaikh Eva Ohara ? [facility] ? [address] [place] [address] ? [place] [id number] ? Patient Name: ?? DIANA CHAMPION ? MRN: [facility]:[id number] ? date: 1955 ?Sex: F ?? Assigned Patient Location: RAD ?? Current Patient Location: ? Accession/Order Number: [id number] ?? Exam Date: 01/25/2024 ??12:50 ?Report Date: 01/26/2024 ??07:39 ? At the request of: ?LEV ? Procedure: ??XR lumbar spine 2-3V ? EXAMINATION: XR lumbar spine 2-3V ? HISTORY: Chronic Bilateral Low Back Pain M54.50 ? COMPARISON: XR lumbar spine 06/30/2023 ? FINDINGS: ?? BONES: Posterior mechanical fusion L5-S1 via bilateral pedicle screws and ?? rods; ?? no appreciable hardware fracture or loosening. Mild right convex curvature of ?? lumbar spine. Grade 1 retrolisthesis of L1 on 2; unchanged. Moderate ?? degenerative facet arthropathy throughout the lumbar spine. ?? DISC SPACES: Intervertebral disc spacer L5-S1. Multilevel mild narrowing. ?? PARASPINOUS: Negative. No paraspinous abnormality is seen. ?? OTHER: Negative. ? XR/XR lumbar spine 2-3V ?? IMPRESSION: ? 1. No appreciable acute abnormality. ?? 2. Stable surgical changes without evidence of hardware failure. ?? 3. Moderate degenerative changes of lumbar spine; grossly stable. ? Electronically authenticated by: MICHAEL ??DARWIN ?? Date: 01/26/2024 ??07:39 ? Dictated By: ?Michael Patel M.D. ? Signed By: ?01/26/24740 ? DD/ 0739 ? TD/TT: ? Mix House Tender: Procedure Note Radiology, Radiologist, MD - 01/26/2024 [place] [address] XRay Report Signed Patient: DIANA CHAMPION AMR#: [id number] : 1955cct:[id number] Age/Sex: 68 / FADM Date: 01/25/24 Loc: RAD Attending Dr: Shaikh Lev Velasquez Ordering Physician: Shaikh Eva Ohara Date of Service: 01/25/24 Procedure(s): XR lumbar spine 2-3V Accession Number(s): [id number] cc: Shaikh Eva Ohara [facility] [place] [id number] Patient Name: DIANA CHAMPION MRN: [id number] date: 1955 Sex: F Assigned Patient Location: [facility] Current Patient Location: Accession/Order Number: [id number] Exam Date: 01/25/2024 12:50 Report Date: 01/26/2024 [...] By: Michael Patel M.D. Signed By:01/26/2441 DD/ 8 TD/TT: Mix House Tender: Authorizing ProviderResult TypeResult StatusShaikh Lev DRAPERIMPoncho XR PROCEDURES Final Result documented in this encounter Visit Diagnoses Not on filedocumented in this encounter Additional Health Concerns AssessmentNoted TimePHQ-9 Depression Total Score: 7101/03/2023 3:03 PM EST documented as of this encounter Care Teams Team MemberRelationshipSpecialtyStart DateEnd Date Shaikh Ohara MD PCP - GeneralInternal Medicine Tapan Barboza MD [address] [place] [address] PCP - GeneralFamily Medicine06/10/24 Ariella Mathis DO [address] [place] [address] Referring PhysicianNeurology2 Mae Reese NP Nurse PractitionerFamily Medicine06/10/24documented as of this encounter
--- OUTSIDE RECORDS SUMMARY | 2025-09-14 11:28 | XMS_ITS | Clinical Summary ---
Author Organization [facility] Address [address] [place] [address] Care Team Providers Care Electric Truck Operator Name Role Phone Unavailable Primary Care [...] (SINGULAIR) 10 mg tablet montelukast 10 mg ymemdp1006/24/2019Active therapeutic multivitamin-minerals (THERA-M PLUS) 9 mg iron-400 [...] number is lower riskNot on file1Data from: https://www.neighborhoodatlas.medicine.[facility].edu/. Last address used for calculationNot on file1CommentsNoSex and Gender Information ValueDate RecordedSex Assigned at BirthNot on fileLegal GjmSjcubr15/15/2017 10:53 AM ESTGender IdentityNot on fileSexual OrientationNot on file Last Filed Vital Signs Vital SignReadingTime TakenCommentsBlood Gexpzpkw637/7609/23/2020 2:26 PM EST Bhjkg987609/23/2020 2:26 PM PWQAefqcezuhqz82.4 ??C (97.5 ??F)09/23/2020 2:26 PM ESTRespiratory Jhwe378411/23/2019 2:26 PM ESTOxygen Xlybvnoqza30%09/23/2020 2:26 PM ESTInhaled Oxygen Concentration--Hwgukl107.1 kg (225 lb)09/23/2020 2:26 PM AQXMvytwn911.6 cm (5' 4 )09/23/2020 2:26 PM ESTBody Mass Index38.6209/23/2020 2:26 PM EST Plan of Treatment Health MaintenanceDue DateLast DoneCommentsAnxiety Hlimjhifd07/28/1974Depression Umyhrnkur39/28/1974Hepatitis C Xlodwvliz04/28/1974DTaP,Tdap,Td Vaccine (1 - Tdap)1975Mammogram Wlhuwwcnr82/28/1996CT Maogsmktatpe27/28/2001Cologuard (FIT-DNA)08/03/20012858Qswnjwpymzq20/28/2001Colorectal Cancer Wemotyrky67/28/2001 Fecal Occult Blood2001Lipid Vnehdqlst13/28/5208Mxeukhzelimsw77/28/2001 Shingrix Vaccine (1 of 2)2006Pneumococcal Vaccine: 50+ (2 of 2 - PCV) Bone Density Itpgjkrov33/28/2021Diabetes Hzzhdwrjk42/27/2021 10/02/2018Advance Directive Bjnvwvmzsn40/01/2025Covid-19 Vaccine (1 - 2024- season)2025Influenza Vaccine (#1)RSV Vaccine (1 - 1- dose 75+ series)[address] [place] [phone]
--- OUTSIDE RECORDS SUMMARY | 2025-09-14 11:29 | XMS_ITS | Patient Health Record ---
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 Date of Service: 11/13/24 Procedure(s): CT chest wo con Accession Number(s): [id number] cc: AIDA BLANC [place] [address] Patient Name: DIANA CHAMPION MRN: [id number] date: 1955 Sex: F Assigned Patient Location: MS Current Patient Location: [place] Accession/Order Number: [id number] Exam Date: 11/13/2024 13:54 Report Date: 11/13/2024 [...] Signed By: 11/13/24 1422 DD/ 1419 TD/TT: Electrical Intern: PROF MANJARREZ 8 ([facility]) Reviewed date:01/05/2025 12:57:10 PM Interpretation: Performing Lab: Notes/Report: [facility] , Sodium 140 136-145 mmol/L Potassium4.33.5-5.1 mmol/LOjqwoxfa53268-025 mmol/LCarbon Nymjcbp31.221.0-32.0 mmol/LAnion Gap12.3Jhwweds18451-196 mg/dLBlood Urea Lpknzxcz26.07.0-18.0 mg/dL Creatinine1.230.55-1.02 mg/dLEstimated GFR ( Vaecetn72>=60 mL/min/1.73m 2 Estimated GFR (Non- Ame43>=60 mL/min/1.73m 2BUN Creatinine Ratio19.5 Calcium9.58.5-10.1 mg/dLPerforming Lab:see noteML - [facility] LB Venous Blood Gas Reviewed date:01/05/2025 12:57:10 PM Interpretation: Performing Lab: Notes/Report: [facility] ,pH VBG7.4347.330-7.219DFL5 VBG45.840.0-52.0 mmHgPerforming Lab:see noteML - [facility] LBXR chest 2V Reviewed date:01/05/2025 12:57:10 PM Interpretation: Performing Lab: Notes/Report: Source Facility: [facility]-[address] [place] [address] [place] [address] XRay Report Signed Patient: DIANA CHAMPION MR#: [id number] : 1955 Acct:[id number] Age/Sex: 69 / F ADM Date: 01/02/25 Loc: MS 214-[address]: Kandy Zepeda M.D. Ordering Physician: Kandy Zepeda M.D. Date of Service: 01/05/25 Procedure(s): XR chest 2V Accession Number(s): [id number] cc: AIDA BLANC; Kandy Zepeda M.D. [place] [address] Patient Name: DIANA CHAMPION MRN: [id number] date: 1955 Sex: F Assigned Patient Location: MS Current Patient Location: [place] Accession/Order Number: [id number] Exam Date: 01/05/2025 09:39 Report Date: 01/05/2025 [...] Medina Jr., D.O.01/05/2025 9:42 AM Dictation Location: [place] [address] Electronically authenticated by: [id number] Y Date: 01/05/2025 09:42 Dictated By: Marcos Medina M.D. Signed By: 01/05/2545 DD/ 1 TD/TT: Electrical Intern:CAROL ANN echo doppler complete Reviewed date:01/06/2025 09:44:14 PM Interpretation: Performing Lab: Notes/Report: Source Facility: [place] [address] Cardiology Report Signed Patient: DIANA CHAMPION MR#: [id number] : 1955 Acct:[id number] Age/Sex: 69 / F ADM Date: 01/02/25 Loc: MS 214-[address]: Kandy Zepeda M.D. Ordering Physician: Kandy Zepeda M.D. Date of Service: 01/06/25 Procedure(s): CA echo doppler complete Accession Number(s): [id number] cc: CRISTIAN BLANC Douglas M.D. Patient Name: DIANA CHAMPION MR#: [id number] : 1955 Exam Date: 01/06/2025 Ordering Doctor: [...] Area (VTI): 2.34 cm2, 2.34 cm2 Deceleration [place]: Pressure Half-Time: Peak Velocity(Antegrade Flow): 1.33 m/s [...] Dictated By: Gary Casas M.D. Signed By: 01/06/25 180 DD/ 06 TD/TT: Electrical Intern:INFLUENZA A AND B AG Reviewed date:01/08/2025 09:36:16 PM Interpretation: Performing Lab: Notes/Report: [facility] ,Influenza Virus A AntigenNegative Negative for Flu A protein antigen. Infection due to Flu A cannot be ruled out. Flu A antigen in the sample may be below the detection limit of the test. Influenza Virus B AntigenNegative Negative for Flu B protein antigen. Infection due to Flu B cannot be ruled out. Flu B antigen in the sample may be below the detection limit of the test. Performing Lab:see noteML - [facility] LBLACTATE or LACTIC ACID Reviewed date:01/08/2025 09:36:16 PM Interpretation: Performing Lab: Notes/Report: [facility] ,Lactate/Lactic Acid1.50.4-2.0 mmol/LPerforming Lab:see noteML - [facility] LBMAGNESIUM Reviewed date:01/08/2025 09:36:16 PM Interpretation: Performing Lab: Notes/Report: [facility] ,Magnesium2.11.8-2.4 mg/dLPerforming Lab:see noteML - [facility] LB RSV Reviewed date:01/08/2025 09:36:16 PM Interpretation: Performing Lab: Notes/Report: [facility] ,Respiratory Syncytial VirusNot DetectedNOT DETECTEPerforming Lab:see noteML - [facility] FBQFVV-DfY-6 Ag* Reviewed date:01/08/2025 09:36:16 PM Interpretation: Performing Lab: Notes/Report: [facility] ,SARS-CoV-2 AgPOSITIVENEGATIVE CALLED TO JESSICA BENITEZ, RN @ 1926 [...] terminated or authorization is revoked sooner. Performing Lab:see noteML - [facility] LBBLOOD GASES BTY Reviewed date:01/12/2025 09:41:19 AM Interpretation: Performing Lab: Notes/Report: [facility] ,pH ABG7.3917.350-7.450ABG EFK901.035.0-45.0 mmHg RESULTS CALLED TO CARLOS TRAORE RN ON [employer] BY [place] at 0854 PO2 BCY261.080.0-100.0 mmHgHCO3 ABG30.922.0-26.0 mmol/LBase Excess ABG6.0 -2.0-2.0 mmol/LOxygen Saturation ABG99.3Allen TestPOSITIVEPOSITIVEO2 Mode VAPOTHERMLiters per Oxzrme08Tldfnxmpenps Inspired Lmkzfn135Torrjhlt SiteL RAD Performing Lab:see noteML - [facility] LBBNP Reviewed date:01/12/2025 09:41:19 AM Interpretation: Performing Lab: Notes/Report: [facility] ,NT Pro B Type Natriuretic Lggn966.0<=900.0 pg/mLPerforming Lab:see noteML - [facility] LBPROF CHEM 8 (BAS METB) Reviewed date:01/12/2025 09:41:19 AM Interpretation: Performing Lab: Notes/Report: [facility] ,Kyxhht858721-661 mmol/LPotassium4.63.5-5.1 mmol/URjoyzgzp1318-379 mmol/LCarbon Ckpfzrk45.121.0-32.0 mmol/LAnion Gap10.2Dcvirvw93157-778 mg/dLBlood Urea Ugocqker61.07.0-18.0 mg/dLCreatinine1.140.55-1.02 mg/dLEstimated GFR ( Zwjibzt90>=60 mL/min/1.73m 2Estimated GFR (Non- Ame47>=60 mL/min/1.73m 2 BUN Creatinine Ratio30.3Xtnubik9.38.5-10.1 mg/dLPerforming Lab:see noteML - [facility] LBBNP Reviewed date:01/12/2025 09:41:19 AM Interpretation: Performing Lab: Notes/Report: [facility] ,NT Pro B Type Natriuretic Mxts715.0<=900.0 pg/mLPerforming Lab:see noteML - [facility] LBCBC AUTO DIFF Reviewed date:01/12/2025 09:41:19 AM Interpretation: Performing Lab: Notes/Report: [facility] ,White Blood Count11.14.0-11.0 10 3/uLRed Blood Count4.244.20-5.40 10 6/uL Ksfzyesodb75.712.0-16.0 g/bVOvpndpqcsl76.136.0-48.0 %Mean Corpuscular Ugwowz35.2 81.0-99.0 fLMean Corpuscular Isicjyxijo18.026.7-34.0 pgMean Corpuscular HGB Conc 32.529.9-35.2 g/dLRed Cell Distribution Width13.811.0-15.0 %Platelet Crtzh579 150-450 10 3/uLMean Platelet Volume9.59.5-13.5 fLPerforming Lab:see noteML - [facility] LBPROF CHEM 8 (BAS METB) Reviewed date:01/12/2025 09:41:19 AM Interpretation: Performing Lab: Notes/Report: [facility] ,Lknmfy114390-083 mmol/LPotassium4.63.5-5.1 mmol/GGtghcvmt2331-422 mmol/LCarbon Gzdqxry12.921.0-32.0 mmol/LAnion Gap11.7Stahioa67764-589 mg/dLBlood Urea Iedslzzk81.07.0-18.0 mg/dLCreatinine1.110.55-1.02 mg/dLEstimated GFR ( Zkrzwxz73>=60 mL/min/1.73m 2Estimated GFR (Non- Ame49>=60 mL/min/1.73m 2 BUN Creatinine Ratio33.9Kjhcwja5.58.5-10.1 mg/dLPerforming Lab:see noteML - [facility] LBUA RANDOM W or MICROSCOPIC Reviewed date:01/13/2025 02:13:13 PM Interpretation: Performing Lab: Notes/Report: [facility] ,Color UrineLT. YELLOWYELLOWClarity UrineCLEARCLEARSpecific Monroe Urine1.010 1.005-1.025pH Urine6.05.0-9.0Protein UrineNEGATIVENEG/TRACE mg/dLGlucose Urine RE121LOYHLKWX mg/dLBilirubin UrineNEGATIVENEGATIVEKetones UrineNEGATIVENEGATIVE mg/dLBlood UrineNEGATIVENEGATIVENitrite UrineNEGATIVENEGATIVEUrobilinogen Urine 0.20.2-1.0 EU/dLLeukocyte Esterase UrineNEGATIVENEGATIVEWBC Urine0-2NONE SEEN #/HPFRBC UrineNONE SEEN0-2 #/HPFBacteria UrineNONE SEENNONE SEEN #/HPFMucus UrineNONE SEENNONE SEENSquamous Epithelial Cell UrineRARENONE/RARE #/LPFCrystals Seen?None SeenNone Seen #/HPFCast Seen?NONE SEENNONE SEEN #/LPFUrine Culture IndicatedNOPerforming Lab:see noteML - [facility] LBManual Differential Reviewed date:01/12/2025 09:41:19 AM Interpretation: Performing Lab: Notes/Report: [facility] ,Segmented Neutrophils % Zpxpdc43.043.0-75.0Lymphocytes Percent Manual2.020.5- 60.0 %Monocytes Percent Manual4.01.7-12.0 %Eosinophils Percent Manual0.00.9-7.0 %Basophils Percent Manual0.00.2-2.0 %Segmented Neut Absolute Qqkvkh94.431.4-6.5 10 3/uLLymphocytes Absolute Manual0.221.20-3.80 10 3/uLMonocytes Absolute Manual 0.440.30-0.80 10 3/uLEosinophils Absolute Manual0.000.00-0.70 10 3/uLBasophils Abs Manual0.000.00-0.10 10 3/uLAnisocytosis1+Performing Lab:see noteML - [facility] LBManual Differential Reviewed date:01/12/2025 09:41:19 AM Interpretation: Performing Lab: Notes/Report: [facility] ,Segmented Neutrophils % Bffjyr54.043.0-75.0Lymphocytes Percent Manual3.020.5- 60.0 %Monocytes Percent Manual7.01.7-12.0 %Eosinophils Percent Manual0.00.9-7.0 %Basophils Percent Manual0.00.2-2.0 %Segmented Neut Absolute Manual9.631.4-6.5 10 3/uLLymphocytes Absolute Manual0.321.20-3.80 10 3/uLMonocytes Absolute Manual 0.740.30-0.80 10 3/uLEosinophils Absolute Manual0.000.00-0.70 10 3/uLBasophils Abs Manual0.000.00-0.10 10 3/uLPerforming Lab:see noteML - [facility] LBCBC AUTO DIFF Reviewed date:01/12/2025 09:41:19 AM Interpretation: Performing Lab: Notes/Report: [facility] ,White Blood Count10.74.0-11.0 10 3/uLRed Blood Count4.064.20-5.40 10 6/uL Jpdeauvzif55.212.0-16.0 g/gQYnnroealda85.936.0-48.0 %Mean Corpuscular Kurerq80.3 81.0-99.0 fLMean Corpuscular Rqvblltqzz78.026.7-34.0 pgMean Corpuscular HGB Conc 32.229.9-35.2 g/dLRed Cell Distribution Width14.011.0-15.0 %Platelet Ebanm505 150-450 10 3/uLMean Platelet Volume9.49.5-13.5 fLPerforming Lab:see noteML - [facility] LBManual Differential Reviewed date:01/12/2025 09:41:19 AM Interpretation: Performing Lab: Notes/Report: [facility] ,Segmented Neutrophils % Gbuarq61.043.0-75.0Band Neutrophils %1.00-5 % Lymphocytes Percent Manual4.020.5-60.0 %Monocytes Percent Manual4.01.7-12.0 % Eosinophils Percent Manual0.00.9-7.0 %Basophils Percent Manual0.00.2-2.0 % Segmented Neut Absolute Clsijc70.651.4-6.5 10 3/uLBand Neutrophils Absolute0.2 0.0-0.3 10 3/uLLymphocytes Absolute Manual0.641.20-3.80 10 3/uLMonocytes Absolute Manual0.640.30-0.80 10 3/uLEosinophils Absolute Manual0.000.00-0.70 10 3/uLBasophils Abs Manual0.000.00-0.10 10 3/uLPerforming Lab:see noteML - [facility] LBPROF CHEM 8 (BAS METB) Reviewed date:01/12/2025 09:41:19 AM Interpretation: Performing Lab: Notes/Report: [facility] ,Bbdqit342817-223 mmol/LPotassium4.43.5-5.1 mmol/ZTyqvxfru7742-274 mmol/LCarbon Hhxepjf60.121.0-32.0 mmol/LAnion Gap14.0Xgyzjxq41772-263 mg/dLBlood Urea Drzuxgnw27.07.0-18.0 mg/dLCreatinine1.340.55-1.02 mg/dLEstimated GFR ( Kgnzytg64>=60 mL/min/1.73m 2Estimated GFR (Non- Ame39>=60 mL/min/1.73m 2 BUN Creatinine Ratio25.1Hiphdjv1.68.5-10.1 mg/dLPerforming Lab:see noteML - [facility] LBCBC AUTO DIFF Reviewed date:01/12/2025 09:41:19 AM Interpretation: Performing Lab: Notes/Report: [facility] ,White Blood Count16.14.0-11.0 10 3/uLRed Blood Count4.584.20-5.40 10 6/uL Bprzoxhdlr99.812.0-16.0 g/nHIldfsododu83.236.0-48.0 %Mean Corpuscular Gadxeu02.3 81.0-99.0 fLMean Corpuscular Oescshpoek59.126.7-34.0 pgMean Corpuscular HGB Conc 31.929.9-35.2 g/dLRed Cell Distribution Width13.911.0-15.0 %Platelet Yplhj201 150-450 10 3/uLMean Platelet Volume9.29.5-13.5 fLPerforming Lab:see noteML - [facility] LBBNP Reviewed date:01/12/2025 09:41:19 AM Interpretation: Performing Lab: Notes/Report: [facility] ,NT Pro B Type Natriuretic Hraz701.0<=900.0 pg/mLPerforming Lab:see noteML - [facility] LBLower Respiratory Culture Reviewed date:01/14/2025 04:11:49 PM Interpretation: Performing Lab: Notes/Report: [facility] ,Lower Respiratory CultureSee Below For Report Lower Respiratory Culture WILL FOLLOW O:GNR Isolated O:PSMS Isolated Organism: 8.2 Antibiotic Interpretation CUCO Status Cefepime Cefepime S F Ceftazidime Ceftazidime S F Ciprofloxacin Ciprofloxacin S F Levofloxacin Levofloxacin S F Meropenem Meropenem S F Tobramycin Tobramycin S F Piperacillin/Tazobactam Piperacillin/Tazobactam S F Ceftazidime/Avibactam Ceftazidime/Avibactam S F Ceftolozane/Tazobactam Ceftolozane/Tazobactam S F Lower Respiratory CultureOrganism: Gram negative jarek : Lower Respiratory Culture WILL FOLLOW O:GNR Isolated O:PSMS Isolated Organism: 8.2 Antibiotic Interpretation CUCO Status Cefepime Cefepime S F Ceftazidime Ceftazidime S F Ciprofloxacin Ciprofloxacin S F Levofloxacin Levofloxacin S F Meropenem Meropenem S F Tobramycin Tobramycin S F Piperacillin/Tazobactam Piperacillin/Tazobactam S F Ceftazidime/Avibactam Ceftazidime/Avibactam S F Ceftolozane/Tazobactam Ceftolozane/Tazobactam S F Lower Respiratory Culture*ABNORMAL* Lower Respiratory Culture WILL FOLLOW O:GNR Isolated O:PSMS Isolated Organism: 8.2 Antibiotic Interpretation CUCO Status Cefepime Cefepime S F Ceftazidime Ceftazidime S F Ciprofloxacin Ciprofloxacin S F Levofloxacin Levofloxacin S F Meropenem Meropenem S F Tobramycin Tobramycin S F Piperacillin/Tazobactam Piperacillin/Tazobactam S F Ceftazidime/Avibactam Ceftazidime/Avibactam S F Ceftolozane/Tazobactam Ceftolozane/Tazobactam S F Lower Respiratory CultureLight growth Lower Respiratory Culture WILL FOLLOW O:GNR Isolated O:PSMS Isolated Organism: 8.2 Antibiotic Interpretation CUCO Status Cefepime Cefepime S F Ceftazidime Ceftazidime S F Ciprofloxacin Ciprofloxacin S F Levofloxacin Levofloxacin S F Meropenem Meropenem S F Tobramycin Tobramycin S F Piperacillin/Tazobactam Piperacillin/Tazobactam S F Ceftazidime/Avibactam Ceftazidime/Avibactam S F Ceftolozane/Tazobactam Ceftolozane/Tazobactam S F Lower Respiratory CultureGram negative jarek Lower Respiratory Culture WILL FOLLOW O:GNR Isolated O:PSMS Isolated Organism: 8.2 Antibiotic Interpretation CUCO Status Cefepime Cefepime S F Ceftazidime Ceftazidime S F Ciprofloxacin Ciprofloxacin S F Levofloxacin Levofloxacin S F Meropenem Meropenem S F Tobramycin Tobramycin S F Piperacillin/Tazobactam Piperacillin/Tazobactam S F Ceftazidime/Avibactam Ceftazidime/Avibactam S F Ceftolozane/Tazobactam Ceftolozane/Tazobactam S F Lower Respiratory CultureOrganism: Pseudomonas aeruginosa., : Lower Respiratory Culture WILL FOLLOW O:GNR Isolated O:PSMS Isolated Organism: 8.2 Antibiotic Interpretation CUCO Status Cefepime Cefepime S F Ceftazidime Ceftazidime S F Ciprofloxacin Ciprofloxacin S F Levofloxacin Levofloxacin S F Meropenem Meropenem S F Tobramycin Tobramycin S F Piperacillin/Tazobactam Piperacillin/Tazobactam S F Ceftazidime/Avibactam Ceftazidime/Avibactam S F Ceftolozane/Tazobactam Ceftolozane/Tazobactam S F Lower Respiratory Culture*ABNORMAL* Lower Respiratory Culture WILL FOLLOW O:GNR Isolated O:PSMS Isolated Organism: 8.2 Antibiotic Interpretation CUCO Status Cefepime Cefepime S F Ceftazidime Ceftazidime S F Ciprofloxacin Ciprofloxacin S F Levofloxacin Levofloxacin S F Meropenem Meropenem S F Tobramycin Tobramycin S F Piperacillin/Tazobactam Piperacillin/Tazobactam S F Ceftazidime/Avibactam Ceftazidime/Avibactam S F Ceftolozane/Tazobactam Ceftolozane/Tazobactam S F Lower Respiratory CultureCeftazidime-avibactam and ceftolozane-tazobactam may Lower Respiratory Culture WILL FOLLOW O:GNR Isolated O:PSMS Isolated Organism: 8.2 Antibiotic Interpretation CUCO Status Cefepime Cefepime S F Ceftazidime Ceftazidime S F Ciprofloxacin Ciprofloxacin S F Levofloxacin Levofloxacin S F Meropenem Meropenem S F Tobramycin Tobramycin S F Piperacillin/Tazobactam Piperacillin/Tazobactam S F Ceftazidime/Avibactam Ceftazidime/Avibactam S F Ceftolozane/Tazobactam Ceftolozane/Tazobactam S F Lower Respiratory Culturebe considered for therapy ONLY when multi-drug Lower Respiratory Culture WILL FOLLOW O:GNR Isolated O:PSMS Isolated Organism: 8.2 Antibiotic Interpretation CUCO Status Cefepime Cefepime S F Ceftazidime Ceftazidime S F Ciprofloxacin Ciprofloxacin S F Levofloxacin Levofloxacin S F Meropenem Meropenem S F Tobramycin Tobramycin S F Piperacillin/Tazobactam Piperacillin/Tazobactam S F Ceftazidime/Avibactam Ceftazidime/Avibactam S F Ceftolozane/Tazobactam Ceftolozane/Tazobactam S F Lower Respiratory Cultureresistance (MDR) is demonstrated to meropenem and Lower Respiratory Culture WILL FOLLOW O:GNR Isolated O:PSMS Isolated Organism: 8.2 Antibiotic Interpretation CUCO Status Cefepime Cefepime S F Ceftazidime Ceftazidime S F Ciprofloxacin Ciprofloxacin S F Levofloxacin Levofloxacin S F Meropenem Meropenem S F Tobramycin Tobramycin S F Piperacillin/Tazobactam Piperacillin/Tazobactam S F Ceftazidime/Avibactam Ceftazidime/Avibactam S F Ceftolozane/Tazobactam Ceftolozane/Tazobactam S F Lower Respiratory Cultureother tested agents. Lower Respiratory Culture WILL FOLLOW O:GNR Isolated O:PSMS Isolated Organism: 8.2 Antibiotic Interpretation CUCO Status Cefepime Cefepime S F Ceftazidime Ceftazidime S F Ciprofloxacin Ciprofloxacin S F Levofloxacin Levofloxacin S F Meropenem Meropenem S F Tobramycin Tobramycin S F Piperacillin/Tazobactam Piperacillin/Tazobactam S F Ceftazidime/Avibactam Ceftazidime/Avibactam S F Ceftolozane/Tazobactam Ceftolozane/Tazobactam S F Lower Respiratory CultureLight growth Lower Respiratory Culture WILL FOLLOW O:GNR Isolated O:PSMS Isolated Organism: 8.2 Antibiotic Interpretation CUCO Status Cefepime Cefepime S F Ceftazidime Ceftazidime S F Ciprofloxacin Ciprofloxacin S F Levofloxacin Levofloxacin S F Meropenem Meropenem S F Tobramycin Tobramycin S F Piperacillin/Tazobactam Piperacillin/Tazobactam S F Ceftazidime/Avibactam Ceftazidime/Avibactam S F Ceftolozane/Tazobactam Ceftolozane/Tazobactam S F Lower Respiratory CulturePseudomonas aeruginosa., Lower Respiratory Culture WILL FOLLOW O:GNR Isolated O:PSMS Isolated Organism: 8.2 Antibiotic Interpretation CUCO Status Cefepime Cefepime S F Ceftazidime Ceftazidime S F Ciprofloxacin Ciprofloxacin S F Levofloxacin Levofloxacin S F Meropenem Meropenem S F Tobramycin Tobramycin S F Piperacillin/Tazobactam Piperacillin/Tazobactam S F Ceftazidime/Avibactam Ceftazidime/Avibactam S F Ceftolozane/Tazobactam Ceftolozane/Tazobactam S F Lower Respiratory CultureSee Below For Report Lower Respiratory Culture WILL FOLLOW O:GNR Isolated O:PSMS Isolated Organism: 8.2 Antibiotic Interpretation CUCO Status Cefepime Cefepime S F Ceftazidime Ceftazidime S F Ciprofloxacin Ciprofloxacin S F Levofloxacin Levofloxacin S F Meropenem Meropenem S F Tobramycin Tobramycin S F Piperacillin/Tazobactam Piperacillin/Tazobactam S F Ceftazidime/Avibactam Ceftazidime/Avibactam S F Ceftolozane/Tazobactam Ceftolozane/Tazobactam S F Lower Respiratory CultureSee Below For Report Lower Respiratory Culture WILL FOLLOW O:GNR Isolated O:PSMS Isolated Organism: 8.2 Antibiotic Interpretation CUCO Status Cefepime Cefepime S F Ceftazidime Ceftazidime S F Ciprofloxacin Ciprofloxacin S F Levofloxacin Levofloxacin S F Meropenem Meropenem S F Tobramycin Tobramycin S F Piperacillin/Tazobactam Piperacillin/Tazobactam S F Ceftazidime/Avibactam Ceftazidime/Avibactam S F Ceftolozane/Tazobactam Ceftolozane/Tazobactam S F Lower Res[facility] CulturePerformed at: [facility] Lower Respiratory Culture WILL FOLLOW O:GNR Isolated O:PSMS Isolated Organism: 8.2 Antibiotic Interpretation CUCO Status Cefepime Cefepime S F Ceftazidime Ceftazidime S F Ciprofloxacin Ciprofloxacin S F Levofloxacin Levofloxacin S F Meropenem Meropenem S F Tobramycin Tobramycin S F Piperacillin/Tazobactam Piperacillin/Tazobactam S F Ceftazidime/Avibactam Ceftazidime/Avibactam S F Ceftolozane/Tazobactam Ceftolozane/Tazobactam S F Lower Respiratory [address] [place] [phone] Lower Respiratory Culture WILL FOLLOW O:GNR Isolated O:PSMS Isolated Organism: 8.2 Antibiotic Interpretation CUCO Status Cefepime Cefepime S F Ceftazidime Ceftazidime S F Ciprofloxacin Ciprofloxacin S F Levofloxacin Levofloxacin S F Meropenem Meropenem S F Tobramycin Tobramycin S F Piperacillin/Tazobactam Piperacillin/Tazobactam S F Ceftazidime/Avibactam Ceftazidime/Avibactam S F Ceftolozane/Tazobactam Ceftolozane/Tazobactam S F Lower Respiratory CultureLab Director: Raphael Marrero PhD, Phone: [phone] Lower Respiratory Culture WILL FOLLOW O:GNR Isolated O:PSMS Isolated Organism: 8.2 Antibiotic Interpretation CUCO Status Cefepime Cefepime S F Ceftazidime Ceftazidime S F Ciprofloxacin Ciprofloxacin S F Levofloxacin Levofloxacin S F Meropenem Meropenem S F Tobramycin Tobramycin S F Piperacillin/Tazobactam Piperacillin/Tazobactam S F Ceftazidime/Avibactam Ceftazidime/Avibactam S F Ceftolozane/Tazobactam Ceftolozane/Tazobactam S F Lower Respiratory CultureSee Below For Report Lower Respiratory Culture WILL FOLLOW O:GNR Isolated O:PSMS Isolated Organism: 8.2 Antibiotic Interpretation CUCO Status Cefepime Cefepime S F Ceftazidime Ceftazidime S F Ciprofloxacin Ciprofloxacin S F Levofloxacin Levofloxacin S F Meropenem Meropenem S F Tobramycin Tobramycin S F Piperacillin/Tazobactam Piperacillin/Tazobactam S F Ceftazidime/Avibactam Ceftazidime/Avibactam S F Ceftolozane/Tazobactam Ceftolozane/Tazobactam S F Lower Respiratory CultureSee Below For Report Lower Respiratory Culture WILL FOLLOW O:GNR Isolated O:PSMS Isolated Organism: 8.2 Antibiotic Interpretation CUCO Status Cefepime Cefepime S F Ceftazidime Ceftazidime S F Ciprofloxacin Ciprofloxacin S F Levofloxacin Levofloxacin S F Meropenem Meropenem S F Tobramycin Tobramycin S F Piperacillin/Tazobactam Piperacillin/Tazobactam S F Ceftazidime/Avibactam Ceftazidime/Avibactam S F Ceftolozane/Tazobactam Ceftolozane/Tazobactam S F Lower Respiratory CultureSee Below For Report Lower Respiratory Culture WILL FOLLOW O:GNR Isolated O:PSMS Isolated Organism: 8.2 Antibiotic Interpretation CUCO Status Cefepime Cefepime S F Ceftazidime Ceftazidime S F Ciprofloxacin Ciprofloxacin S F Levofloxacin Levofloxacin S F Meropenem Meropenem S F Tobramycin Tobramycin S F Piperacillin/Tazobactam Piperacillin/Tazobactam S F Ceftazidime/Avibactam Ceftazidime/Avibactam S F Ceftolozane/Tazobactam Ceftolozane/Tazobactam S F Lower Respiratory CultureSee Below For Report Lower Respiratory Culture WILL FOLLOW O:GNR Isolated O:PSMS Isolated Organism: 8.2 Antibiotic Interpretation CUCO Status Cefepime Cefepime S F Ceftazidime Ceftazidime S F Ciprofloxacin Ciprofloxacin S F Levofloxacin Levofloxacin S F Meropenem Meropenem S F Tobramycin Tobramycin S F Piperacillin/Tazobactam Piperacillin/Tazobactam S F Ceftazidime/Avibactam Ceftazidime/Avibactam S F Ceftolozane/Tazobactam Ceftolozane/Tazobactam S F Lower Respiratory CultureSee Below For Report Lower Respiratory Culture WILL FOLLOW O:GNR Isolated O:PSMS Isolated Organism: 8.2 Antibiotic Interpretation CUCO Status Cefepime Cefepime S F Ceftazidime Ceftazidime S F Ciprofloxacin Ciprofloxacin S F Levofloxacin Levofloxacin S F Meropenem Meropenem S F Tobramycin Tobramycin S F Piperacillin/Tazobactam Piperacillin/Tazobactam S F Ceftazidime/Avibactam Ceftazidime/Avibactam S F Ceftolozane/Tazobactam Ceftolozane/Tazobactam S F Lower Respiratory CultureSee Below For Report Lower Respiratory Culture WILL FOLLOW O:GNR Isolated O:PSMS Isolated Organism: 8.2 Antibiotic Interpretation CUCO Status Cefepime Cefepime S F Ceftazidime Ceftazidime S F Ciprofloxacin Ciprofloxacin S F Levofloxacin Levofloxacin S F Meropenem Meropenem S F Tobramycin Tobramycin S F Piperacillin/Tazobactam Piperacillin/Tazobactam S F Ceftazidime/Avibactam Ceftazidime/Avibactam S F Ceftolozane/Tazobactam Ceftolozane/Tazobactam S F Lower Respiratory CultureSee Below For Report Lower Respiratory Culture WILL FOLLOW O:GNR Isolated O:PSMS Isolated Organism: 8.2 Antibiotic Interpretation CUCO Status Cefepime Cefepime S F Ceftazidime Ceftazidime S F Ciprofloxacin Ciprofloxacin S F Levofloxacin Levofloxacin S F Meropenem Meropenem S F Tobramycin Tobramycin S F Piperacillin/Tazobactam Piperacillin/Tazobactam S F Ceftazidime/Avibactam Ceftazidime/Avibactam S F Ceftolozane/Tazobactam Ceftolozane/Tazobactam S F Lower Respiratory CultureSee Below For Report Lower Respiratory Culture WILL FOLLOW O:GNR Isolated O:PSMS Isolated Organism: 8.2 Antibiotic Interpretation CUCO Status Cefepime Cefepime S F Ceftazidime Ceftazidime S F Ciprofloxacin Ciprofloxacin S F Levofloxacin Levofloxacin S F Meropenem Meropenem S F Tobramycin Tobramycin S F Piperacillin/Tazobactam Piperacillin/Tazobactam S F Ceftazidime/Avibactam Ceftazidime/Avibactam S F Ceftolozane/Tazobactam Ceftolozane/Tazobactam S F Lower Respiratory CultureSee Below For Report Lower Respiratory Culture WILL FOLLOW O:GNR Isolated O:PSMS Isolated Organism: 8.2 Antibiotic Interpretation CUCO Status Cefepime Cefepime S F Ceftazidime Ceftazidime S F Ciprofloxacin Ciprofloxacin S F Levofloxacin Levofloxacin S F Meropenem Meropenem S F Tobramycin Tobramycin S F Piperacillin/Tazobactam Piperacillin/Tazobactam S F Ceftazidime/Avibactam Ceftazidime/Avibactam S F Ceftolozane/Tazobactam Ceftolozane/Tazobactam S F Lower Respiratory CultureSee Below For Report Lower Respiratory Culture WILL FOLLOW O:GNR Isolated O:PSMS Isolated Organism: 8.2 Antibiotic Interpretation CUCO Status Cefepime Cefepime S F Ceftazidime Ceftazidime S F Ciprofloxacin Ciprofloxacin S F Levofloxacin Levofloxacin S F Meropenem Meropenem S F Tobramycin Tobramycin S F Piperacillin/Tazobactam Piperacillin/Tazobactam S F Ceftazidime/Avibactam Ceftazidime/Avibactam S F Ceftolozane/Tazobactam Ceftolozane/Tazobactam S F Performing Lab:see note LC - [facility] LB SEE REPORT - Germination Testing Manager Id information not found for OBX-specific film reproducer legend Gram Stain Evaluation Reviewed date:01/14/2025 04:11:49 PM Interpretation: Performing Lab: Notes/Report: [facility] ,Gram Stain EvaluationSee Below For Report Gram Stain Evaluation This specimen is of good quality and is acceptable for routine Gram Stain Evaluationbacterial culture. Gram Stain Evaluation This specimen is of good quality and is acceptable for routine Performing Lab:see noteLC - [facility] LBResult 4 Reviewed date:01/14/2025 04:11:49 PM Interpretation: Performing Lab: Notes/Report: [facility] ,Result 4See Below For Report Result 4 SHIFT SUPERVISOR MELTING Performing Lab:see noteLC - [facility] LBResult 3 Reviewed date:01/14/2025 04:11:49 PM Interpretation: Performing Lab: Notes/Report: [facility] ,Result 3See Below For Report Result 3 SHIFT SUPERVISOR MELTING Performing Lab:see noteLC - [facility] LBResult 2 Reviewed date:01/14/2025 04:11:49 PM Interpretation: Performing Lab: Notes/Report: [facility] ,Result 2See Below For Report Result 2 SHIFT SUPERVISOR MELTING Performing Lab:see noteLC - [facility] LBResult 1 Reviewed date:01/14/2025 04:11:49 PM Interpretation: Performing Lab: Notes/Report: [facility] ,Result 1See Below For Report Result 1 No organisms seen Performing Lab:see noteLC - [facility] LBEpithelial Cells Reviewed date:01/14/2025 04:11:49 PM Interpretation: Performing Lab: Notes/Report: [facility] ,Epithelial CellsSee Below For Report Epithelial Cells Few Performing Lab:see noteLC - [facility] LBWhite Blood Cells Reviewed date:01/14/2025 04:11:49 PM Interpretation: Performing Lab: Notes/Report: [facility] ,White Blood CellsSee Below For Report White Blood Cells White Blood CellsNone seen White Blood Cells Performing Lab:see noteLC - [facility] LBManual Differential Reviewed date:01/09/2025 09:12:32 PM Interpretation: Performing Lab: Notes/Report: [facility] ,Segmented Neutrophils % Gwyknp35.043.0-75.0Band Neutrophils %1.00-5 % Lymphocytes Percent Manual9.020.5-60.0 %Monocytes Percent Manual1.01.7-12.0 % Eosinophils Percent Manual0.00.9-7.0 %Basophils Percent Manual0.00.2-2.0 % Metamyelocytes %1.0Segmented Neut Absolute Kqimet90.351.4-6.5 10 3/uLBand Neutrophils Absolute0.10.0-0.3 10 3/uLLymphocytes Absolute Manual1.161.20-3.80 10 3/uLMonocytes Absolute Manual0.120.30-0.80 10 3/uLEosinophils Absolute Manual 0.000.00-0.70 10 3/uLBasophils Abs Manual0.000.00-0.10 10 3/uLMetamyelocytes Absolute Manual0.12Performing Lab:see noteML - [facility] LBPROF CHEM 8 (BAS METB) Reviewed date:01/09/2025 09:12:32 PM Interpretation: Performing Lab: Notes/Report: [facility] ,Riwppb629560-509 mmol/LPotassium5.03.5-5.1 mmol/CTuslsxtx00839-003 mmol/LCarbon Umbcgax03.121.0-32.0 mmol/LAnion Gap8.1Roclmti09464-741 mg/dLBlood Urea Yhgnohje67.07.0-18.0 mg/dLCreatinine1.320.55-1.02 mg/dLEstimated GFR ( Xonioav46>=60 mL/min/1.73m 2Estimated GFR (Non- Ame40>=60 mL/min/1.73m 2 BUN Creatinine Ratio26.9Wvlovjp6.08.5-10.1 mg/dLPerforming Lab:see noteML - [facility] LBCBC AUTO DIFF Reviewed date:01/09/2025 09:12:32 PM Interpretation: Performing Lab: Notes/Report: [facility] ,White Blood Count12.94.0-11.0 10 3/uLRed Blood Count4.304.20-5.40 10 6/uL Qsstxpjflu59.212.0-16.0 g/hOXsprdrwzzz92.336.0-48.0 %Mean Corpuscular Wskqhs04.7 81.0-99.0 fLMean Corpuscular Xbjtjhjhob21.726.7-34.0 pgMean Corpuscular HGB Conc 32.829.9-35.2 g/dLRed Cell Distribution Width14.311.0-15.0 %Platelet Tcliz256 150-450 10 3/uLMean Platelet Volume8.89.5-13.5 fLPerforming Lab:see noteML - [facility] LBBNP Reviewed date:01/09/2025 09:12:32 PM Interpretation: Performing Lab: Notes/Report: [facility] ,NT Pro B Type Natriuretic Zbft751.0<=900.0 pg/mLPerforming Lab:see note - [facility] LBPROF CHEM 8 (BAS METB) Reviewed date:01/07/2025 07:51:37 PM Interpretation: Performing Lab: Notes/Report: [facility] ,Jjuutx026503-074 mmol/LPotassium4.33.5-5.1 mmol/SFpobkrvt25668-333 mmol/LCarbon Euohgjt13.421.0-32.0 mmol/LAnion Gap7.8Rwivicw81460-106 mg/dLBlood Urea Gdqzkpzs49.07.0-18.0 mg/dLCreatinine1.250.55-1.02 mg/dLEstimated GFR ( Vbjziea48>=60 mL/min/1.73m 2Estimated GFR (Non- Ame43>=60 mL/min/1.73m 2 BUN Creatinine Ratio26.1Vqxcuod5.38.5-10.1 mg/dLPerforming Lab:see noteML - [facility] LBPROF CHEM 8 (BAS METB) Reviewed date:01/06/2025 09:44:14 PM Interpretation: Performing Lab: Notes/Report: [facility] ,Nuvztp625587-831 mmol/LPotassium4.13.5-5.1 mmol/VFsmlifso06530-585 mmol/LCarbon Ivjmceq11.721.0-32.0 mmol/LAnion Gap10.5Cjxriqu14768-377 mg/dLBlood Urea Alvxocpf90.07.0-18.0 mg/dLCreatinine1.180.55-1.02 mg/dLEstimated GFR ( Ivjiaff34>=60 mL/min/1.73m 2Estimated GFR (Non- Ame46>=60 mL/min/1.73m 2 BUN Creatinine Ratio23.8Xjeafpz0.38.5-10.1 mg/dLPerforming Lab:see note - [facility] LBBNP Reviewed date:01/06/2025 09:44:14 PM Interpretation: Performing Lab: Notes/Report: Comment use blood from this am or skip [facility] ,NT Pro B Type Natriuretic Xogv2013.0<=900.0 pg/mLRESULTS CALLED TO France WinslowRNPerforming Lab:see note - [facility] LBPROF CHEM 8 (BAS METB) Reviewed date:01/14/2025 09:26:10 AM Interpretation: Performing Lab: Notes/Report: [facility] ,Mejfvf229494-730 mmol/LPotassium4.43.5-5.1 mmol/TFukdlpwt0540-075 mmol/LCarbon Pdrqjly74.021.0-32.0 mmol/LAnion Gap8.8Ifpemil35780-269 mg/dLBlood Urea Nitrogen 40.07.0-18.0 mg/dLCreatinine1.140.55-1.02 mg/dLEstimated GFR ( Hcmiakx84 >=60 mL/min/1.73m 2Estimated GFR (Non- Ame47>=60 mL/min/1.73m 2BUN Creatinine Ratio35.4Bjtqffh1.18.5-10.1 mg/dLPerforming Lab:see note - [facility] LBCBC AUTO DIFF Reviewed date:01/14/2025 09:26:10 AM Interpretation: Performing Lab: Notes/Report: [facility] ,White Blood Count9.74.0-11.0 10 3/uLRed Blood Count4.084.20-5.40 10 6/uL Tnvvsymnyj68.212.0-16.0 g/eTNnglaztlpr84.036.0-48.0 %Mean Corpuscular Yrblct82.7 81.0-99.0 fLMean Corpuscular Avsalahczw50.926.7-34.0 pgMean Corpuscular HGB Conc 33.029.9-35.2 g/dLRed Cell Distribution Width13.911.0-15.0 %Platelet Duvee782 150-450 10 3/uLMean Platelet Volume9.89.5-13.5 fLNeutrophils Percent Auto80.7 43.0-75.0 %Lymphocytes Percent Auto5.720.5-60.0 %Monocytes Percent Auto7.11.7- 12.0 %Eosinophils Percent Auto0.30.9-7.0 %Basophils Percent Auto0.30.2-2.0 % Immature Granulocytes Pct Auto5.90.0-0.5 %Neutrophils Absolute Auto7.91.4-6.5 10 3/uLLymphocytes Absolute Auto0.61.2-3.8 10 3/uLMonocytes Absolute Auto0.70.3- 0.8 10 3/uLEosinophils Absolute Auto0.00.0-0.7 10 3/uLBasophils Absolute Auto0.0 0.0-0.1 10 3/uLImmature Granulocytes Abs Auto0.570.00-0.03 10 3/uLPerforming Lab:see noteML - [facility] LBBNP Reviewed date:01/14/2025 09:26:10 AM Interpretation: Performing Lab: Notes/Report: [facility] ,NT Pro B Type Natriuretic Jbwk901.0<=900.0 pg/mLPerforming Lab:see noteML - [facility] LBPROF CHEM 8 (BAS METB) Reviewed date:01/13/2025 02:13:13 PM Interpretation: Performing Lab: Notes/Report: [facility] ,Bxqtec748527-575 mmol/LPotassium4.83.5-5.1 mmol/SXcdkjjui2216-722 mmol/LCarbon Oeyonaq19.921.0-32.0 mmol/LAnion Gap10.1Huxmwvb88868-757 mg/dLBlood Urea Ynevgudg84.07.0-18.0 mg/dLCreatinine1.210.55-1.02 mg/dLEstimated GFR ( Xybdbfe89>=60 mL/min/1.73m 2Estimated GFR (Non- Ame44>=60 mL/min/1.73m 2 BUN Creatinine Ratio29.7Zhakdla8.18.5-10.1 mg/dLPerforming Lab:see noteML - [facility] LBCBC AUTO DIFF Reviewed date:01/13/2025 02:13:13 PM Interpretation: Performing Lab: Notes/Report: [facility] ,White Blood Count8.14.0-11.0 10 3/uLRed Blood Count3.554.20-5.40 10 6/uL Dbsjjhkbvp35.812.0-16.0 g/lGMpizdztvrk29.136.0-48.0 %Mean Corpuscular Rojjlz35.2 81.0-99.0 fLMean Corpuscular Cdnuwfuhgb77.426.7-34.0 pgMean Corpuscular HGB Conc 32.629.9-35.2 g/dLRed Cell Distribution Width13.911.0-15.0 %Platelet Zslck117 150-450 10 3/uLMean Platelet Volume9.79.5-13.5 fLNeutrophils Percent Auto83.3 43.0-75.0 %Lymphocytes Percent Auto3.820.5-60.0 %Monocytes Percent Auto7.81.7- 12.0 %Eosinophils Percent Auto0.10.9-7.0 %Basophils Percent Auto0.20.2-2.0 % Immature Granulocytes Pct Auto4.80.0-0.5 %Neutrophils Absolute Auto6.71.4-6.5 10 3/uLLymphocytes Absolute Auto0.31.2-3.8 10 3/uLMonocytes Absolute Auto0.60.3- 0.8 10 3/uLEosinophils Absolute Auto0.00.0-0.7 10 3/uLBasophils Absolute Auto0.0 0.0-0.1 10 3/uLImmature Granulocytes Abs Auto0.390.00-0.03 10 3/uLPerforming Lab:see noteML - [facility] LBBNP Reviewed date:01/13/2025 02:13:13 PM Interpretation: Performing Lab: Notes/Report: [facility] ,NT Pro B Type Natriuretic Qkkl099.0<=900.0 pg/mLPerforming Lab:see noteML - [facility] LBVANCOMYCIN TROUGH Reviewed date:01/13/2025 02:13:13 PM Interpretation: Performing Lab: Notes/Report: [facility] ,Vancomycin Ghdtip57.05.0-20.0 ug/mLPerforming Lab:see noteML - [facility] LB Reason For Referral No Information Medications Medication SIG (Take, Route, Frequency, Duration) Notes Start Date End Date Status Doxycycline Hyclate 100 MG 1 tablet Orally BID; Duration: 10 days 5ActiveAlbuterol Sulfate (2.5 MG/3ML) 0.083% 3mL Inhalation QID; Duration: 90 days Dispense #360 nebules ActiveMontelukast Sodium 10 MG1 tablet Orally Once a day; Duration: 90 days ActiveAlbuterol Sulfate HFA 108 (90 Base) MCG/ACT 2 puffs as needed for SOB Inhalation every 4 hrs; Duration: 90 days Dispense #3 inhalers ActiveFluticasone Propionate 50 MCG/ACT 2 squirts in each nostril Nasally QD; Duration: 90 days Dispense #3 bottles ActivepredniSONE 20 MG 3 tabs x 3 days, 2 tabs x 3 days, 1 tab x 3 days Orally Once a day; Duration: 9 days Take with food 5ActiveClotrimazole 10 MG 1 neelima Mouth/Throat QID; Duration: 10 days Dissolve in mouth Dissolve in mouth3ActiveOmeprazole 20 MG1 capsule 30 minutes before morning meal Orally BIDActivePramipexole Dihydrochloride 0.25 MGOral; Duration: 30 DaysActiveBreztri Aerosphere 160-9-4.8 MCG/ACT 2 puffs Inhalation Twice a day; Duration: 90 days Rinse after use; Dispense #3 inhalers Patient has myopathy and unable to generate enough inspiratory force for dry powder /21/2025ActiveMucinex 600 MG1-2 tablets as needed for congestion Orally BID; Duration: 90 daysActivebuPROPion HCl ER (XL) 150 MGOral; Duration: 30 DaysActivePregabalin 75 MGOral; Duration: 30 DaysActiveOhtuvayre 3 MG/2.5ML2.5 mL Inhalation Twice a day; Duration: 90 days5Active traZODone HCl 100 MG1 tablet at bedtime as needed Orally Once a dayActiveIron 325 (65 Fe) MG1 tablet Orally Every other dayActiveSodium Chloride 0.9 %3mL Inhalation TID; Duration: 90 daysActiveTrospium Chloride ER 60 MGOral; Duration: 30 DaysActiveLatanoprost 0.005 %INSTILL 1 DROP INTO EACH EYE AT BEDTIME Ophthalmic; Duration: 45 DaysActiveVitamin D3 25 MCG (1000 UT)1 capsule Orally Once a dayActiveMagnesium Oxide 400 MG1 tablet as needed Orally Once a dayActive Baclofen 10 MGOral; Duration: 30 DaysActive Immunizations Vaccine Route Administration Date Status Comme nts Arexvy Unknown 08/18/2023 Administered Comirnaty Weddingful Syringe Pre-Filled 30 mcg/0.3 sCIvwdwjn17/15/2024Administered Flu, Fluad (81125) 65 yrs + High Dose Seasonal (6517-2253)Gbhqpcj5909/06/2024 AdministeredFlu, Fluzone High-Dose (9439-0502) (83330) 65 yrs+Yjttelo5408/26/2023 AdministeredPneumococcal (Pneumovax 23)Gukmsvz4810/19/2018AdministeredPneumococcal (Prevnar 20)Qviqqxk5008/09/2023dministeredSpikevax Moderna Syringe Pre-Filled 50 mcg/0.5 uFQpwrvme13/21/2023AdministeredZOSTER (SHINGLES) VACCINE (HZV)Unknown 2Administered Social History Tobacco Use: Social History Observation Description Date Details (start date - stop date) Never Smoker NA - NA Tobacco Control (Standard) Question Answer Notes Tobacco use: Nonsmoker Problems Problem Type SNOMED Code ICD Code Onset Dates Problem Status W/U Status Risk Notes Problem Morbid obesity (disorder) (69905 6002) Morbid (severe) obesity due to excess calories (E66.01) ActiveconfirmedProblemCritical illness myopathy (623788530)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)ActiveconfirmedProblemChronic respiratory failure (84233183) Chronic respiratory failure with hypoxia (J96.11)ActiveconfirmedProblemPulmonary collapse (90121904)Other pulmonary collapse (J98.19)ActiveconfirmedDynamic airway collapseProblemLong-term current use of inhaled steroid (487001810)intermediate card tender (current) use of inhaled steroids (Z79.51)ActiveconfirmedProblemChronic obstructive pulmonary disease (55870511)Chronic obstructive pulmonary disease (J44.9)ActiveconfirmedPrior treatment: Trelegy 100 > Breo 100 > Spiriva > albuterol > AtroventProblemRestless legs syndrome (40628587)Restless leg syndrome (G25.81)ActiveconfirmedProblemDepression (546449543)Depression (F32.9) ActiveconfirmedProblemAllergic rhinitis (20308724)Allergic rhinitis (J30.9) ActiveconfirmedProblemRestrictive lung disease (20082993)Restrictive lung disease (J98.4)ActiveconfirmedProblemMultiple pulmonary nodules (821313072) Multiple pulmonary nodules (R91.8)ActiveconfirmedProblemLung field abnormal (846350305)Ground glass opacity present on imaging of lung (R91.8)Active confirmedProblemGastroesophageal reflux disease (927373509)Gastroesophageal reflux disease (K21.9)ActiveconfirmedProblemExacerbation of asthma (111817776) Asthma with acute exacerbation (J45.901)ActiveconfirmedProblemDaytime sleep (005872432)Daytime hypersomnolence (G47.19)ActiveconfirmedProblemPneumonia (208610104)Healthcare-associated pneumonia (J18.9)ActiveconfirmedProblem Secondary pulmonary hypertension (37776832)Other secondary pulmonary hypertension (I27.29)ActiveconfirmedProblemAllergic rhinitis (25223224)Allergic rhinitis, unspecified seasonality, unspecified trigger (J30.9)Activeconfirmed ProblemLumbar spinal stenosis (72006797)Lumbar stenosis (M48.061)Activeconfirmed ProblemHistory of COVID-19 (626418541282452521)History of COVID-19 (Z86.16) Activeconfirmed04/04/2023: Severe associated hypoxic respiratory failureProblem Body mass index 40+ - severely obese (142247002)Body mass index [BMI] 40.0-44.9, adult (Z68.41)Activeconfirmed Vital Signs Heart Rate 73 /min 05/01/2025 Sqevcrisvhl75.0 degrees Qnrsuuuseh99/26/2025Respiratory Rate20 /min05/01/2025 Pmnycqae52 %05/01/2025lood pressure mm Hg05/01/20253239Odbhgk79 in 05/01/2025lood pressure mm Hg05/01/20257453Bqjita930.0 lbs05/01/2025MI 44.59 kg/m205/01/2025 Encounters Encounter Location Date Provider Diagnosis Pulmonary Medicine [facility] [address] [place] [address] 07/21/2025 [facility] [place] [address]/[facility] [address] [place] [address] [facility] [address] [place] [address]/09/2025[facility] [address] [place] [facility] [address]/09/2025[facility] [address] [place] [address]/[facility] campusChronic obstructive pulmonary disease J44.9Pulmonary Medicine [address] [place] [address]/09/2025[facility] [address] [place] [place] [address]/[facility] [address] [place] [place] [address]/05/2025[facility] campusChronic obstructive pulmonary disease J44.9Pulmonary Medicine [address] [place] [address]/[address] [address]/02/2025[facility] with (acute) exacerbation J44.1 and Candidal stomatitis B37.0ulmonary [address] [address]/[facility] Chronic obstructive pulmonary disease J44.9 ; Other pulmonary collapse J98.19 ; Seborrheic dermatitis, unspecified L21.9 ; 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 ; Chronic respiratory failure with hypoxia J96.11 ; intermediate card tender (current) use of inhaled steroids Z79.51 ; History of COVID-19 Z86.16 and Morbid (severe) obesity due to excess calories E66.01ulmonary [address] [address]/[facility] J44.9 ; Other pulmonary collapse J98.19 ; 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 ; Other secondary pulmonary hypertension I27.29 ; Chronic respiratory failure with hypoxia J96.11 ; half-way (current) use of inhaled steroids Z79.51 ; History of COVID-19 Z86.16 and Morbid (severe) obesity due to excess calories E66.[address] [address] 05/01/2025[facility] J44.9 ; 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 ; Other pulmonary collapse J98.19 ; Chronic respiratory failure with hypoxia J96.11 ; Other secondary pulmonary hypertension I27.29 ; Allergic rhinitis J30.9 ; Oral candidiasis B37.0 ; half-way (current) use of inhaled steroids Z79.51 ; Morbid (severe) obesity due to excess calories E66.01 and History of COVID-[address] [address]/[facility] J44.9 ; Other pulmonary collapse J98.19 ; 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 ; Other secondary pulmonary hypertension I27.29 ; Chronic respiratory failure with hypoxia J96.11 ; half-way (current) use of inhaled steroids Z79.51 ; History of COVID-19 Z86.16 and Morbid (severe) obesity due to excess calories E66.01 Assessments Encounter Date Diagnosis (ICD Code) Assessment Notes Treatment Notes Treatment Clinical Notes Section Notes 10/22/2024 Chronic obstructive pulmonary disease (ICD-10 - J44.9) Prior treatment: Trelegy 100 > Breo 100 > Spiriva > albuterol > Atrovent From a dyspnea standpoint, she is doing well on Trelegy. Main complaint continues to be cough. Discussed new medication Ohtuvayre to add on top of all her other medications. She stated that she was okay with her current regimen. 10/22/2024Other pulmonary collapse (ICD-10 - J98.19)Dynamic airway collapse Tracheobronchomalacia Rxtz-gd-oosl performed today regarding continued need for NIV. [...] this. She has remained out of the hospitalsince starting NIV. Her only complaint is a [...] is advised to follow-up with her PCP. 5Chronic obstructive pulmonary disease with (acute) exacerbation (ICD- 10 - J44.1) Given the change in mucus consistancy & color, on top of sweats, ongoing for 5-6 days, will errto treat (especially with her history). Most recently on Rocephin, Zithromax, and doxycycline - will Rx Augmentin 500. Not wheezy today, but will send in prednisone taper for her to take if she begins to develop chest tightness, wheezing, etc. Keep January appointment. 5Candidal stomatitis (ICD-10 - B37.0) Mild candidiasis, likely secondary to steroids + antibiotics. May worsen with Augmentin. She has clotrimazole troches at home - she was instructed to use them. 5Chronic obstructive pulmonary disease (ICD-10 - J44.9) Prior [...] on the tongue and larynx. Both of thes e factors are likely contributing to the recurrent [...] Trelegy 200. Explained it is via the nebulizerBID. Reviewed potential adverse effects with the patient, including psychiatric. I also discussed changing ICS/LABA/LAMA completely to nebulized formulartions (e.g. Pulmicort/Brovana/Yupelri), but then she could have 6 different nebulized solutions (these 3 on top of sodium chloride, albuterol, and Ohtuvayre) - this could be extremely confusing. Will see how she responds to Breztri first. F/U 2 months. 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 Compliance from 12/29/2024 - 01/23/2025 was reviewed. She continues to voice improved breathing using NIV. There is a slight decrease in compliance from January 08 through secondary to her hospital admission. Other than that, she continuesto do very well. Her rash has resolved. 04/02/2025hronic obstructive pulmonary disease (ICD-10 - J44.9) Prior treatment: Breztri > Trelegy 200 > Trelegy 100 > Breo 100 > Spiriva > albuterol > Atrovent She is doing better since hospitalization. Breztri working much better than Trelegy - it requires less NIF than Trelegy. Will continue current treatment for now. Reassess in 3 months given severity of her pulmonary disease. 05/01/2025hronic obstructive pulmonary disease (ICD-10 - J44.9) Prior [...] she keep up with her pulmonary toilet. [facility] Pulmonology practice will be permanently closing. Refilling all medications today. As it will be several months until I would be able to see her again elsewhere, prescribing prednisone and antibiotics in case she has a flare and is unable to reach anyone. 05/01/2025ritical illness myopathy (ICD-10 - G72.81) Fzow-mt-bzav encounter performed with the patient to document continued need for a high frequency chest wall oscillation (vest) device. -Use of vest twice daily: Yes -Improvement of mobilization and clearance of secretions: Improved -Amplitude/frequency of oscillations tolerable: Yes -Continues to use nebulized saline: Yes -Continues to use PEP device: Yes -Recommendations: Continue PEP, saline nebs, NIV, and vest. 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 Discussed if she develops a rash again on the face to try Selsun Blue. 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 Compliance from 02/26/2025 - 03/27/2025 was reviewed. Doing awesome with NIV - despite hospitalization and rehab stint, she was still ableto have her son bring in her NIV and she maintained excellent compliance at 28/30 days (93%). Residual AHI 4.1. No issues with mask, pressures, etc. No complaints of rash today. 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 Continue vest, PEP, and saline nebs. 10/22/2024Seborrheic dermatitis, unspecified (ICD-10 - L21.9) As above, suggested patient scrub her face twice daily with Selsun Blue. Any further treatment, follow-up with PCP. 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 Continue vest BID. 01/29/2025Other secondary pulmonary hypertension (ICD-10 - I27.29) Echocardiogram [...] inhibitor given patient's recent episodes of lightheadedness. 04/02/2025ritical illness myopathy (ICD-10 - G72.81) Jhob-tj-virp encounter performed with the patient to document [...] toilet. Continue vest, PEP, and saline nebs. 5Chronic respiratory failure with hypoxia (ICD-10 - J96.11) Edxh-tt-vgry encounter performed with the patient to document continued need for supplemental oxygen (O2). -Flow & directions: 2-3L/min ATC POC -Patient voices adherence to recommended usage: Yes -Symptom control on O2: Better with O2. -Counseled patient not begin, restart, or continue smoking, around the O2 due to risk of fire whichcould result in damage to the O2 tanks & lines, smoke inhalation and flame damage to the airway, significant garcia, potential , property damage, and potential harm & to bystanders.Additionally, counseled it is not simental to begin, restart, or continue smoking given the underlying pulmonary disease that led to the point of requiring O2. -Recommendations: Continues to have benefit with O2. 05/01/2025Other secondary pulmonary hypertension (ICD-10 - I27.29) January 2025 echo - RVSP 63mmHg. F/U with cardiology. 04/02/2025Other secondary pulmonary hypertension (ICD-10 - I27.29) Echocardiogram January 2025 continues to show elevated RVSP; it is currently 63 mmHg. She is seeing cardiology and suspect it is group 3 etiology (pulmonary). Treatment generally is treating the underlying conditions, which are very difficult to manage. 5Chronic respiratory failure with hypoxia (ICD-10 - J96.11) Olit-fk-nsxt encounter performed with the patient to document continued need for supplemental oxygen (O2). -Flow & directions: 3L/min ATC -Patient voices adherence to recommended usage: Yes -Symptom control on O2: More dyspnea when she takes it off -Counseled patient not begin, restart, or continue smoking, around the O2 due to risk of fire whichcould result in damage to the O2 tanks & lines, smoke inhalation and flame damage to the airway, significant garcia, potential , property damage, and potential harm & to bystanders.Additionally, counseled it is not simental to begin, restart, or continue smoking given the underlying pulmonary disease that led to the point of requiring O2. -Recommendations: Continue O2 as directed 4Chronic respiratory failure with hypoxia (ICD-10 - J96.11) Xhya-xz-frqc encounter performed with the patient to document continued need for supplemental oxygen (O2). -Flow & directions: 3L/min ATC -Patient voices adherence to recommended usage: Yes -Symptom control on O2: Less SOB -Counseled patient not begin, restart, or continue smoking, around the O2 due to risk of fire whichcould result in damage to the O2 tanks & lines, smoke inhalation and flame damage to the airway, significant garcia, potential , property damage, and potential harm & to bystanders.Additionally, counseled it is not simental to begin, restart, or continue smoking given the underlying pulmonary disease that led to the point of requiring O2. -Recommendations: Oxygenation remains tenuous at times, SpO2 87% on 3L/min. Patient does not feel any more short of breath at this saturation, so will continue to monitor for now. 10/22/2024Long term (current) use of inhaled steroids (ICD-10 - Z79.51) Patient was counseled to rinse & gargle with water after inhaled corticosteroid use. 01/29/2025Long term (current) use of inhaled steroids (ICD-10 - Z79.51) Patient was counseled to rinse & gargle with water after inhaled corticosteroid use. 04/02/2025hronic respiratory failure with hypoxia (ICD-10 - J96.11) Cbjn-pl-fpkq encounter performed with the patient to document continued need for supplemental oxygen (O2). -Flow & directions: 3L/min ATC -Patient voices adherence to recommended usage: Yes -Symptom control on O2: Improved. -Counseled patient not begin, restart, or continue smoking, around the O2 due to risk of fire whichcould result in damage to the O2 tanks & lines, smoke inhalation and flame damage to the airway, significant garcia, potential , property damage, and potential harm & to bystanders.Additionally, counseled it is not simental to begin, restart, or continue smoking given the underlying pulmonary disease that led to the point of requiring O2. -Recommendations: Continue O2 ATC. 5Allergic rhinitis (ICD-10 - J30.9) Continue Flonase and Singulair. 05/01/2025Oral candidiasis (ICD-10 - B37.0) Refill of clotrimazole sent in just in case 04/02/2025Lo term (current) use of inhaled steroids (ICD-10 - Z79.51) Patient was counseled to rinse & gargle with water after inhaled corticosteroid use. 01/29/2025History of COVID-19 (ICD-10 - Z86.16)04/04/2023: Severe associated hypoxic respiratory mqmaluv4510/22/2024History of COVID-19 (ICD-10 - Z86.16) 04/04/2023: Severe associated hypoxic respiratory uwxdqja4110/22/2024Morbid (severe) obesity due to excess calories (ICD-10 - E66.01) Patient's weight is inducing a restrictive pulmonary physiology. Weight loss indicated: Decrease calories, increase activity. Patient's weight is inducing a restrictive pulmonary physiology. Weight loss indicated: Decrease calories, increase activity. 01/29/2025Morbid (severe) obesity due to excess calories (ICD-10 - E66.01) Patient's weight is inducing a restrictive pulmonary physiology. Weight loss indicated: Decrease calories, increase activity. 04/02/2025History of COVID-19 (ICD-10 - Z86.16)04/04/2023: Severe associated hypoxic respiratory dfugwrw4905/01/2025Long term (current) use of inhaled steroids (ICD-10 - Z79.51) Patient was counseled to rinse & gargle with water after inhaled corticosteroid use. 05/01/2025Morbid (severe) obesity due to excess calories (ICD-10 - E66.01) Patient's weight is inducing a restrictive pulmonary physiology. Weight loss indicated: Decrease calories, increase activity. 04/02/2025Morbid (severe) obesity due to excess calories (ICD-10 - E66.01) Patient's weight is inducing a restrictive pulmonary physiology. Weight loss indicated: Decrease calories, increase activity. 05/01/2025History of COVID-19 (ICD-10 - Z86.16)04/04/2023: Severe associated hypoxic respiratory kcxanhv9710/22/20242027Oycdi60/26/2025Other As above, suggested patient scrub her face twice daily with Selsun Blue. Any further treatment, follow-up with PCP. 04/02/2025Other As above, suggested patient scrub her face twice daily with Selsun Blue. Any further treatment, follow-up with PCP. 05/01/2025Other As above, suggested patient scrub her face twice daily with Selsun Blue. Any further treatment, follow-up with PCP. Plan Of Treatment No Information Insurance Providers Payer Name Payer Address Payer Phone Subscriber Number Group Number Insured Name Patient Relationship to Insured Coverage Start Date Coverage End Date [employer] [address] [place] [address] [id number] Kd Champion - patient is the [id number] MEDICAREPO [address] [place], [place] [id number], SherrySelf - patient is the [id number] [address] [facility] [place] [id number], SherrySelf - patient is the insured Medical (General) [...] Surgical History Surgery Date(Month/Year) spinal fusion Cardiac Catheterizationtubal ligationRight Foot Surgeryright knee replacement left hip replacementBronchoscopy-07/02/2024Hospitalization History Reason Date(Month/Year) HCAP - [facility] 03/11/2025 COVID & Pseudomonas pneumonia-[facility] 2024 Asthma/COPD Exacerbation-[facility] 01/02/2025 COPD Exacerbation, pneumonia-[facility] COPD Exacerbation-[facility] 06/07/2024 COPD Exacerbation-[facility] 04/11/2024 Pneumonia-[facility] 02/03/2024 Pasgz-62-PIL 04/10/2023 Hospital Acquired Pneumonia-[facility] 08/08/20 Sepsis/Pneumonia-[facility] 11/25/2023
--- OUTSIDE RECORDS SUMMARY | 2025-09-14 11:29 | XMS_ITS | Clinical Summary ---
Author Organization [facility] Address [address] [place] [address] Care Team Providers Care Sorting Machine Attendant Name Role Phone Kaylene López MD Primary Care Provider [phone] Allergies Active AllergyReactionsCriticalityNoted DateCommentsFentanylOtherMedium 07/07/2017 Other Reaction(s): [...] 1 tablet by mouth in the morning.Active rvcvfadnsyx-rhgfewzog-exylbtdi 100-62.5-25 mcg blister with device Active guaiFENesin [...] MOUTH IN THE MORNING AND 1 AT GXUKWOT6105/06/2024ctive traMADol (Ultram) 50 mg tablet Take 50 [...] INSTILL 1 DROP INTO EACH EYE AT VQHVUUK4406/18/2024ctive ofloxacin (Ocuflox) 0.3 % ophthalmic solution 07/10/2024ctive [...] at bedtime.Active Active Problems ProblemNoted DateDiagnosed DateMixed zsqcymnzcsht48/27/2025Primary HSV infection of mouth11/12/2024Neoplasm of uncertain behavior of chest wall10/07/2024History of colon dggeqw3905/13/2024neumonia due to infectious cjwcusks29/11/2024 Overview (05/13/2024): Last Assessment & Plan: Finish [...] CKD. Check BMP. Chronic respiratory failure with trwmtqa7112/28/2023 Overview (05/13/2024): Last Assessment & Plan: On 3 L O2 via NC now. She was previously on 2 L She is doing well currently and stated that this is the best she has felt since she had COVID over a year ago. Rerbmextelwh94/22/2024 Overview (05/13/2024): Last Assessment & Plan: WBC [...] with Pulm and she will discuss possibly fci prednisone for her severe Asthma/COPD. Patient instructed to go to ED if she experiences worsening SOB. Ldtqbcviapwos39/30/8614Lwplnpm40/30/2024Spinal stenosis, lumbar region without neurogenic gniurchwhyxf56/30/2024Status post total right knee replacement 12/05/2023Medicare annual wellness visit, bmgnuhaogo48/01/2024 Overview (05/13/2024): Last Assessment & Plan: Here for Medicare Wellness. Screened for depression, cognitive impairment, fall risk Ordered cologuard for the patient. Mammogram not due. Will order next appt. Gfswvnmhl64/29/2023t moderate risk for fall10/04/2023hronic back pain greater than 3 months ouudpxbu75/29/2023hronic heart failure with preserved ejection qwyjabxs78/29/2023hronic kidney disease, stage III (moderate)10/04/2023hronic low back pain without gtgxlgne62/29/2023 Overview (05/13/2024): Last Assessment & Plan: Chronic [...] on the etiology of her pain Colorectal fbzjbz2310/04/20239503Fsnnkhwzsj15/29/2023 Overview (05/13/2024): Last Assessment & Plan: Patient currently on Trazodone and Paxil. Reports depressed mood, anhedonia, poor sleep. Increase Paxil to 30 mg. Trazodone to 100 mg. Patient counseled and educated on adverse effects, drug interactions and to reach out to office/pharmacy if questions or concerns related to new medications. Iron deficiency wlgzqi6210/04/2023Moderate persistent asthma with exacerbation 10/04/2023 Overview (05/13/2024): [...] finished her oral abx prescribed by her cork tipper. Continues to have bronchospasm, wheezing, chest tightness and will benefit from continuing pulse steroid taper as outpatient. Patient educated to go to ED if worsening SOB, hypoxia and no improvementwith prednisone. C/w albuterol q4. At high risk of poor outcome. Non-recurrent acute suppurative otitis media of both ears without spontaneous rupture of tympanic gzeozyrew80/29/2023 Overview (05/13/2024): Last Assessment & Plan: B/l otitis media noted on exam. Will call in oral Augmentin for patient. Positive depression plyjyaujf49/29/2023ost-gjzablitby37/29/2023Restless leg eeivdzxz97/29/2023Urge otjjfbmzpvog59/29/2023Vitamin D /29/2023 Malignant neoplasm of rectosigmoid /29/2023Morbid (severe) obesity due to excess ugdpwwav12/29/2023ody mass index (BMI) 40.0-44.9, adult05/08/2023 05/08/2023ritical illness sldguryo22History of COVID-19 /01/2023Other secondary pulmonary dabegeyemtls73 Primary osteoarthritis of right hip03/26/2023Electrocardiogram abnormal 08/23/2022Disc displacement, zctzzb0003/26/2019 Overview (03/23/2023): Added automatically from request for surgery [id number] Arthritis of right knee10/17/2018Lumbar xoprvoeqhko26/17/2018 Overview (03/23/2023): Added automatically from request for surgery [id number] Disorder of befmeh9601/15/2018 Overview (03/23/2023): Added automatically from request for surgery [id number] Nycodj0304/01/2014Chest pain04/01/2014Chronic obstructive lung olxhbmb2004/01/2014 Chronic yeyjcmfay42/27/7930Gdrxgug22/27/7631Odhxr25/27/2014Essential jmiwhgvdvkus30/27/2014Gastroesophageal reflux iqphhzy0004/01/2014Hyperlipidemia 04/01/2014Type 2 diabetes mellitus without ivcyqzdsikof33 Overview (05/08/2023): Removal Reason: Patient states no [...] file07/11/2024Sexually AbusedNot on file07/11/2024HQ-2AnswerDate RecordedPatient Health Questionnaire-2 Xvbyy151/12/2024UT Safety & Environment AnswerDate RecordedFear of Current or Ex-PartnerNot on file12/28/2023Emotionally AbusedNot on file12/28/2023hysically AbusedNot on file12/28/2023Sexually Abused Not on file12/28/2023hysically or Sexually AbusedNot on file12/28/2023 CommentsUnknownSex and Gender InformationValueDate RecordedSex Assigned at Not on fileLegal SffMwhyot48/29/2022 10:32 PM EDTGender IdentityNot on file Sexual OrientationNot on file Last Filed Vital Signs Vital SignReadingTime TakenCommentsBlood Rcbrmogf673/7401/23/2025 12:03 PM EDT Ledop787701/23/2025 12:03 PM LNMXwcneocschb59.4 ??C (97.5 ??F)07/02/2024 8:11 AM EDTRespiratory Mkmc803907/02/2024 12:20 PM EDTOxygen Gfgoxpixva86%01/23/2025 12:03 PM EDTon 3L X5Sqzbett Oxygen Concentration--Vtrihs833 kg (236 lb)01/23/2025 12:03 PM EDTper xxrxbvgEpkvst397.6 cm (5' 4 )01/23/2025 12:03 PM EDTBody Mass Index40.51001/23/2025 12:03 PM EDT Plan of Treatment Health MaintenanceDue DateLast DoneCommentsCT Nqiawzaejluq1956olonoscopy 1955olorectal Cancer Jhcmlvfuf1956Diabetes: Hemoglobin A1C 1956FIT-DNA1956FIT1956FOBT1956Medicare Annual Wellness (AWV)08/03/19564847Qdsspyrsaimmn1956Diabetes: Retinopathy Xotfjtdqj89/28/1966 Diabetes: Urine Protein Vkhbxiyqi12/28/1975Adult Clifjlo3308/03/1978Mammogram 1996COVID-19 Vaccine ( season)/, 08/26/2023, 08/04/2022, Additional history existsInfluenza Vaccine (#1)5111/06/2023, 08/26/2023, 08/04/2022, Additional history existsDepression Ozxfmdhze81/12/2025 10/17/2024Fall Risk Vsnabpeji53Zoster VaccinesCompleted 11/01/2022, 2Pneumococcal Vaccine: 50+ KhgzrJrrwnwtal39/04/2023, 10/19/2018HIB VaccinesAged OutNo longer eligible based on [...] Date Kaylene López MD [address] [place] [address] PCP - GeneralNurse Practitioner01/22/25
--- OUTSIDE RECORDS SUMMARY | 2025-09-14 11:29 | XMS_ITS | Encounter Summary ---
Author Organization [facility] Address [address] [place] [address] Care Team Providers Care Set Rider Name Role Phone Shaikh BONNY Ohara Primary Care Provider [phone] Ariella Mathis DO Unavailable [phone] Tapan Barboza MD Primary Care Provider [phone] Mae Reese ELECTROPHYSIOLOGY SCIENTIST Unavailable [phone] Encounter Details DateTypeDepartmentCare Team (Latest Contact Info)Yxqwwmpyojl06/22/2024Clinisync Result Encounter [facility] Unsolicited Shaikh Ohara MD [address] [place] [id number] Social History Tobacco UseTypesPacks/DayYears UsedDateSmoking Tobacco: NeverPassive Smoke Exposure: NeverSmokeless Tobacco: NeverAlcohol UseStandard Drinks/WeekComments Never0 (1 standard drink = 0.6 oz pure alcohol)caffeine: more than 4 cups per bzfJ9327 Health LiteracyAnswerDate RecordedHow often do you need [...] times a week11/25/2024How often do you attend buddhist or restorationism services?More than 4 times per year 11/25/2024Do you belong to any clubs or organizations such as buddhist groups, unions, fraCreatorBox or athletic groups, or school groups?No11/25/2024How often do you attend meetings of the clubs or organizations you belong to?Never11/25/2024 Are you , , , , never , or living with a partner?Atzorqrs42/20/2025UDIT-CAnswerDate RecordedQ1: How often do you have a [...] care, and heating?Somewhat hard11/25/2024PHQ-2AnswerDate RecordedPatient Health Questionnaire-2 Ffwjn337Finuintah [facility] medical center [place] of Occupational Health - Occupational Stress QuestionnaireAnswerDate RecordedDo you feel stress - tense, restless, nervous, or anxious, or unable to sleep at night because yourmind is troubled all the time - these days?Only a mhuysn4611/25/2024Exercise Vital Sign AnswerDate RecordedOn average, how many [...] homeless or living in a fpc (including now)?No11/25/2024CommentsUnknownSex and Gender InformationValueDate RecordedSex Assigned at BirthNot on fileLegal SexFemale 01/18/2023 7:03 PM EDTGender IdentityNot on fileSexual OrientationNot on file documented as of this encounter Functional Status * AUDIT-C ScoreAnswerDate of BwavfjtmadDnfsjk200/20/2025 4:37 PM ESTNathaly, Generic * Q1: How often do you have a drink containing alcohol?AnswerDate of Assessment BzfqcaNjfbm16/20/2025 4:37 PM ESTNathaly, Generic * Q2: How many drinks containing alcohol do you have on a typical day when you are drinking?AnswerDate of AssessmentAuthorPatient does not drink11/25/2024 4:37 PM Lucita, Generic * Q3: How often do you have six or more drinks on one occasion?AnswerDate of HwdxgqbgzoKsebnwLkhrk07/20/2025 4:37 PM Lucita, Generic * Over the past 2 weeks, how often have you been bothered by any of the following problems?QuestionAnswerDate of AssessmentAuthorLittle interest or pleasure in doing thingsNot at all07/11/2024 8:26 AM Tony Camarillo MA Feeling down, depressed, or hopelessNot at all07/11/2024 8:26 AM Tony Camarillo MAPatient Health Questionnaire-2 Akpsk802 8:26 AM Tony Camarillo MA documented as of this encounter Plan of Treatment DateTypeDepartmentCare Team (Latest Contact Info)Qtgjqbvvpnd87/10/2026 8:45 AM EDTOffice Visit [facility] [address] [place] [phone] Denise Lazo MD [address] [place] [address] 12/15/2026 9:00 AM ESTOffice Visit [facility] [address] [place] [address] Yuri Bowers PA [address] [place] [address] documented as of this encounter Procedures Procedure NamePriorityDate/TimeAssociated DiagnosisCommentsXR CHEST 2V03/27/2024 4:02 PM EDT documented in this encounter Results * XR CHEST 2V (03/27/2024 4:02 PM EDT)Anatomical RegionLateralityModalityOther Specimen (Source)Anatomical Location / LateralityCollection Method / Volume Collection TimeReceived Time03/27/2024 4:02 PM EDT Narrative 03/27/2024 4:05 PM EDT [facility] ?[address] ? [place] [address] ?XRay Report ? Signed ? Patient: CHAMPION,DIANA A ?MR#: [id number] ?? : 1955 ?Acct:[id number] ?? Age/Sex: 68 / F ?ADM Date: 03/27/24 ?? Loc: RAD ? Attending Dr: Shaikh Lev Velasquez ? Ordering Physician: Shaikh Eva Ohara ?? Date of Service: 03/27/24 ?? Procedure(s): XR chest 2V ?? Accession Number(s): [id number] ? cc: Shaikh Eva Ohara ? [facility] ? [address] ? [place] [address] ? Patient Name: ?? DIANA CHAMPION ? MRN: [facility]:[id number] ? date: 1955 ?Sex: F ?? Assigned Patient Location: RAD ?? Current Patient Location: RAD ?? Accession/Order Number: [id number] ?? Exam Date: 03/27/2024 ??14:40 ?Report Date: 03/27/2024 ??16:02 ? At the request of: ?LEV ? Procedure: ??XR chest 2V ? EXAMINATION: XR chest 2V ? HISTORY: Severe Asthma With Acute Exacerbation J45.51 ? COMPARISON: 10/25/2023 ? TECHNIQUE: PA and lateral ? FINDINGS: ?? LUNGS: 4.7 cm focal opacity identified in the right midlung. Minimal bibasilar ? infiltrates. ?? VASCULATURE: No increased pulmonary vasculature. ?? PLEURA: No pneumothorax, effusion, or pleural thickening. ?? CARDIAC: No cardiomegaly or cardiac silhouette abnormality. ?? MEDIASTINUM: No visible mass or adenopathy. ?? BONES: No fracture or visible bone lesion. ?? OTHER: Call results initiated through operations. ? XR/XR chest 2V ?? IMPRESSION: ? Focal density in the right midlung. Pneumonia is favored. Follow-up after ?? resolution of symptoms/treatment recommended to document resolution ? Electronically authenticated by: BRITTANY ??RASHEEDA ?? Date: 03/27/2024 ??16:02 ? Dictated By: ?Brittany Vanessa M.D. ? Signed By: ?03/27/241604 ? DD/ 01 ? TD/TT: ? Voice Over Artist: Procedure Note Radiology, Radiologist, - 03/27/2024 [place] [address] XRay Report Signed Patient: DIANA CHAMPION [facility]#: [id number] : 1955cct:[id number] Age/Sex: 68 / FADM Date: 03/27/24 Loc: [facility] Attending Dr: Shaikh Lev Velasquez Ordering Physician: Shaikh Eva Ohara Date of Service: 03/27/24 Procedure(s): XR chest 2V Accession Number(s): [id number] cc: Shaikh Eva Ohara [facility] [place] [id number] Patient Name: DIANA CHAMPION MRN: [id number] date: 1955 Sex: F Assigned Patient Location: [facility] Current Patient Location: [facility] Accession/Order Number: [id number] Exam Date: 03/27/2024 14:40 Report Date: 03/27/2024 [...] Brittany Vanessa M.D. Signed By:03/27/24 1605 DD/ 160 TD/TT: Voice Over Artist: Authorizing ProviderResult TypeResult StatusWestlake Regional Hospitaljohn Ohara MDCLINISYNC IMAGING Final Result documented in this encounter Visit Diagnoses Not on filedocumented in this encounter Additional Health Concerns AssessmentNoted TimePHQ-9 Depression Total Score: 7101/03/2023 3:03 PM EST documented as of this encounter Care Teams Team MemberRelationshipSpecialtyStart DateEnd Date Shaikh Ohara MD PCP - GeneralInternal Medicine Tapan Barboza MD [address] [place] [address] PCP - GeneralFamily Medicine06/10/24 Ariella Mathis DO [address] [place] [address] Referring PhysicianNeurolog01/02/24 Mae Reese NP Nurse PractitionerFamily Medicine06/10/24documented as of this encounter
--- OUTSIDE RECORDS SUMMARY | 2025-09-14 11:29 | XMS_ITS | Encounter Summary ---
Author Organization [facility] Address [address] [facility] [place] [address] Care Team Providers Care Delivery Specialist Name Role Phone Shaikh BONNY Ohara Primary Care Provider [phone] Ariella Mathis DO Unavailable [phone] Tapan Barboza MD Primary Care Provider [phone] Mae Reese SAWYER HELPER Unavailable [phone] Encounter Details DateTypeDepartmentCare Team (Latest Contact Info)Cziitonvpjl97/24/2024Clinisync Result Encounter [facility] External Department Unsolicited Provider, Generic External Data Social History Tobacco UseTypesPacks/DayYears UsedDateSmoking Tobacco: NeverPassive Smoke Exposure: NeverSmokeless Tobacco: NeverAlcohol UseStandard Drinks/WeekComments Never0 (1 standard drink = 0.6 oz pure alcohol)caffeine: more than 4 cups per [id number] Health LiteracyAnswerDate RecordedHow often do you need [...] times a week11/25/2024How often do you attend orthodoxy or adventism services?More than 4 times per year 11/25/2024Do you belong to any clubs or organizations such as orthodoxy groups, unions, fraternal or athletic groups, or school groups?No11/25/2024How often do you attend meetings of the clubs or organizations you belong to?Never11/25/2024 Are you , , , , never , or living with a partner?Gxwibhwg90/20/2025UDIT-CAnswerDate RecordedQ1: How often do you have a [...] care, and heating?Somewhat hard11/25/2024PHQ-2AnswerDate RecordedPatient Health Questionnaire-2 Itwbd312Finsteward health care system Protection of Occupational Health - Occupational Stress QuestionnaireAnswerDate RecordedDo you feel stress - tense, restless, nervous, or anxious, or unable to sleep at night because yourmind is troubled all the time - these days?Only a nmbjoa0011/25/2024Exercise Vital Sign AnswerDate RecordedOn average, how many [...] steady place to sleep or slept in [place] (including now)?No 10/26/2023Housing Stability Vital SignAnswerDate RecordedIn the last 12 months, was there a time when you were not able to pay the mortgage or rent on time?No 11/25/2024In the past 12 months, how many times have you moved where you were living?t any time in the past 12 months, were you homeless or living in a intermediate (including now)?No11/25/2024CommentsUnknownSex and Gender InformationValueDate RecordedSex Assigned at BirthNot on fileLegal SexFemale 01/18/2023 7:03 PM EDTGender IdentityNot on fileSexual OrientationNot on file documented as of this encounter Functional Status * AUDIT-C ScoreAnswerDate of JyyxowbbvfJbroju340/20/2025 4:37 PM ESTMychart, Generic * Q1: How often do you have a drink containing alcohol?AnswerDate of Assessment WrwjbqUtzzs55/20/2025 4:37 PM Lucita, Generic * Q2: How many drinks containing alcohol do you have on a typical day when you are drinking?AnswerDate of AssessmentAuthorPatient does not drink11/25/2024 4:37 PM Lucita Generic * Q3: How often do you have six or more drinks on one occasion?AnswerDate of LsluvmckdaNorvssJvxtf43/20/2025 4:37 PM Lucita Generic * Over the past 2 weeks, how often have you been bothered by any of the following problems?QuestionAnswerDate of AssessmentAuthorLittle interest or pleasure in doing thingsNot at all07/11/2024 8:26 AM Tony Camarillo MA Feeling down, depressed, or hopelessNot at all07/11/2024 8:26 AM Tony Camarillo MAPatient Health Questionnaire-2 Zpgqe531 8:26 AM Tony Camarillo MA documented as of this encounter Plan of Treatment DateTypeDepartmentCare Team (Latest Contact Info)Twabosnynfe95/10/2026 8:45 AM EDTOffice Visit [facility] [address] [place] [phone] Denise Lazo MD [address] [facility] [address] [place] [address] 12/15/2026 9:00 AM ESTOffice Visit [facility] [address] [place] [address] Yuri Bowers PA [address] [place] [address] documented as of this encounter Procedures Procedure NamePriorityDate/TimeAssociated DiagnosisCommentsCA ECHO DOPPLER DHWXKGOR98/24/2024 3:49 PM EDT documented in this encounter Results * CA ECHO DOPPLER COMPLETE (05/29/2024 3:49 PM EDT)Anatomical RegionLaterality ModalityOtherSpecimen (Source)Anatomical Location / LateralityCollection Method / VolumeCollection TimeReceived Time05/29/2024 3:49 PM EDT Narrative 05/29/2024 3:50 PM EDT [facility] ?[address] ? [place] [address] ? Cardiology Report ? Signed ? Patient: CHAMPIONDIANA A ?MR#: [id number] ?? : 1955 ?Acct:[id number] ?? Age/Sex: 68 / F ?ADM Date: 05/28/24 ?? Loc: CARD ? Attending Dr: Nasim Scales M.D. ? Ordering Physician: Nasim Scales M.D. ?? Date of Service: 05/28/24 ?? Procedure(s): CA echo doppler complete ?? Accession Number(s): [id number] ? cc: Nasim Scales M.D.; Shaikh Eva Ohara ? Patient Name: ? DIANA CHAMPION ? MR#: [id number] ? : 1955 ? Exam Date: 05/28/2024 ?? Ordering Doctor: DR NASIM SCALES M.D. ? ECHOCARDIOGRAM REPORT ? PROCEDURE: ? CA ECHO DOPPLER COMPLETE ? INDICATIONS: ? Pulmonary hypertension, COPD, congestive heart failure ? COMPARISON: ? None. ? DESCRIPTION: ? COMPLETE ECHOCARDIOGRAM Real-time transthoracic ?? echocardiography with 2D, M-mode, spectral and color flow Doppler performed. ? QUALITY: ? Technical quality was good. ? LEFT VENTRICLE: ? Normal chamber size. Normal left ventricular wall ?? thickness. ??Low normal systolic function. ?? LV EF: ? Low normal left ventricular ejection fraction, (50%). ?? DIASTOLIC: ? Normal diastolic function. ?? ATRIAL SEPTUM: ? Visually appears intact. ?? LEFT ATRIUM: ? Normal chamber size. ?? RIGHT ATRIUM: ? Normal chamber size. ?? RIGHT VENTRICLE: ? Normal chamber size. Normal right ventricular systolic ?? function. ? TRICUSPID VALVE: ? Normal mobility and thickness. No stenosis with mild ?? regurgitation. Doppler studies reveal severely (>60) elevated right sided pressures. RVSP 65 mmHg ? MITRAL VALVE: ? Normal mobility and thickness. ?? No evidence of mitral valve ?? stenosis. ??There is no mitral annular calcification. Trivial mitral ?? regurgitation. ? AORTIC VALVE: ? Normal trileaflet appearance. No visible sclerosis. ??Normal ?? leaflet mobility. ??No evidence of aortic valve stenosis. Trivial aortic ?? regurgitation. ? AORTIC ROOT: ? Normal diameter and appearance. Ascending aorta is normal in ?? size. ? PULMONIC VALVE: ? Normal thickness and mobility. No stenosis. Trivial ?? regurgitation. ? PERICARDIUM: ? No evidence of pericardial effusion. ? IVC: ?IVC is dilated (2.3 cm) with no collapse. ? PLEURA: ? CONCLUSION: ? 1. Left ventricle is normal in size and exhibits no low normal systolic ?? function. ??LVEF is estimated at 50%. ?? 2. Normal right ventricular size and systolic function. ?? 3. Mild tricuspid regurgitation. ?? 4. Severely elevated right-sided pressures. ??RVSP is 65 mmHg. ? Adult Echocardiography Procedure Report ?? Left Ventricle ?? LVEDD (3.7 - 5.6 cm): ? 5.28 cm ?? LVESD (2.2 - 4.0 cm): ? 3.44 cm ?? LVIVS thickness (0.6 - 1.2 cm): ? 0.76 cm ?? LVPW thickness (0.5 - 1.0 cm): ? 0.86 cm ?? e': ? 0.10 m/s ?? E - e': ? 6.45 ?? LVOT Max Gradient: ? 8.15 mm[Hg] ?? LVOT Area (cm2): ? 1.43 m/s ?? Peak Velocity (LVOT): ? 1.43 m/s ?? Mean Velocity (LVOT): ? 0.87 m/s ?? LVOT Diameter ? 2.17 cm ?? Left Atrium ?? LA Volume Index (2D A2C): ? 30.07 ml/m2 ?? Left Atrium Systolic Dimension: ? 3.09 cm ?? Mitral Valve ?? MV E to A Ratio: ? 0.79 ?? Mitral Valve A-Wave Peak Velocity: ? 0.82 m/s ?? Mitral Valve E-Wave Peak Velocity: ? 0.65 m/s ?? Right Ventricle ?? Aorta ?? AO Root Diam: ? 3.27 cm ?? Ascending Ao Diam: ? 2.91 cm ?? Aortic Valve ?? AoV Area (Peak Rafita): ? 3.51 cm2, 3.51 cm2 ?? AoV Area (VTI): ? 3.12 cm2, 3.12 cm2 ?? Peak Velocity(Antegrade Flow): ? 1.50 m/s ?? Peak Gradient(Antegrade Flow): ? 9.02 mm[Hg] ?? Mean Velocity(Antegrade Flow): ? 0.98 m/s ?? Mean Gradient(Antegrade Flow): ? 4.43 mm[Hg] ?? Velocity Time Integral: ? 34.14 cm ?? Tricuspid Valve ?? Peak Velocity (Regurgitant Flow): ? 3.53 m/s, 3.24 m/s ?? Pulmonic Valve ?? Mean Gradient: ? 2.46 mm[Hg] ?? Mean Velocity: ? 0.73 m/s ?? Peak Velocity: ? 1.19 m/s, 1.27 m/s ?? Peak Gradient: ? 6.47 mm[Hg], 5.68 mm[Hg] ?? Right Atrium ?? Right Atrium Systolic Pressure: ? 38.40 ml, 38.40 ml ? Dictated by: Alicia Toussaint M.D. on 05/29/2024 at 15:46 ? Approved by: Alicia Toussaint M.D. on 05/29/2024 at 15:49 ? Dictated By: ?ALICIA TOUSSAINT ? Signed By: ?05/29/24 1550 ? DD/ 1549 ? TD/TT: ? Vice President Of Compliance: Procedure Note Radiology, Radiologist, MD - 05/29/2024 [place] [address] Cardiology Report Signed Patient: DIANA CHAMPION AMR#: [id number] : 1955cct:[id number] Age/Sex: 68 / FADM Date: 05/28/24 Loc: CARD Attending Dr: Nasim Scales M.D. Ordering Physician: Nasim Scales M.D. Date of Service: 05/28/24 Procedure(s): CA echo doppler complete Accession Number(s): [id number] cc: Nasim Scales M.D.; Shaikh Eva Ohara Patient Name: DIANA CHAMPION MR#: [id number] : 1955 Exam Date: 05/28/2024 Ordering Doctor: [...] TOUSSAINT Signed By:05/29/24 1550 DD/ 1549 TD/TT: Vice President Of Compliance: Authorizing ProviderResult TypeResult StatusGeneric External Data Provider CLINISYNC IMAGINGFinal Result documented in this encounter Visit Diagnoses Not on filedocumented in this encounter Additional Health Concerns AssessmentNoted TimePHQ-9 Depression Total Score: 7101/03/2023 3:03 PM EST documented as of this encounter Care Teams Team MemberRelationshipSpecialtyStart DateEnd Date Shaikh Ohara MD PCP - GeneralInternal Medicine Tapan Barboza MD [address] [place] [address] PCP - GeneralFamily Medicine06/10/24 Ariella Mathis DO [address] [place] [address] Referring PhysicianNeurolog01/02/24 Mae Reese NP Nurse PractitionerFamily Medicine06/10/24documented as of this encounter
--- OUTSIDE RECORDS SUMMARY | 2025-09-14 11:29 | XMS_ITS | Encounter Summary ---
Author Organization [facility] Address [address] [place] [address] Care Team Providers Care Principal Consultant Name Role Phone Shaikh BONNY Ohara Primary Care Provider [phone] Ariella Mathis DO Unavailable [phone] Tapan Barboza MD Primary Care Provider [phone] Mae Reese APPLICATION INTEGRATION ENGINEER Unavailable [phone] Encounter Details DateTypeDepartmentCare Team (Latest Contact Info)Jedwgappgzp87/29/2024Clinisync Result Encounter [facility] External Department Unsolicited Shaikh Ohara MD [address] [place] [id number] Social History Tobacco UseTypesPacks/DayYears UsedDateSmoking Tobacco: NeverPassive Smoke Exposure: NeverSmokeless Tobacco: NeverAlcohol UseStandard Drinks/WeekComments Never0 (1 standard drink = 0.6 oz pure alcohol)caffeine: more than 4 cups per [id number] Health LiteracyAnswerDate RecordedHow often do you need [...] times a week11/25/2024How often do you attend hinduism or muslim services?More than 4 times per year 11/25/2024Do you belong to any clubs or organizations such as hinduism groups, unions, frafromAtoB or athletic groups, or school groups?No11/25/2024How often do you attend meetings of the clubs or organizations you belong to?Never11/25/2024 Are you , , , , never , or living with a partner?Rbpvacqv38/20/2025UDIT-CAnswerDate RecordedQ1: How often do you have a [...] care, and heating?Somewhat hard11/25/2024PHQ-2AnswerDate RecordedPatient Health Questionnaire-2 Yniwy995Finst[facility] [place]se of Occupational Health - Occupational Stress QuestionnaireAnswerDate RecordedDo you feel stress - tense, restless, nervous, or anxious, or unable to sleep at night because yourmind is troubled all the time - these days?Only a qqwezx1411/25/2024Exercise Vital Sign AnswerDate RecordedOn average, how many [...] homeless or living in a alf (including now)?No11/25/2024CommentsUnknownSex and Gender InformationValueDate RecordedSex Assigned at BirthNot on fileLegal SexFemale 01/18/2023 7:03 PM EDTGender IdentityNot on fileSexual OrientationNot on file documented as of this encounter Functional Status * AUDIT-C ScoreAnswerDate of RjqpqhumnrXxlxyr980/20/2025 4:37 PM Lucita, Generic * Q1: How often do you have a drink containing alcohol?AnswerDate of Assessment VwpcgmCfdkx45/20/2025 4:37 PM ESTNathaly, Generic * Q2: How many drinks containing alcohol do you have on a typical day when you are drinking?AnswerDate of AssessmentAuthorPatient does not drink11/25/2024 4:37 PM Lucita, Generic * Q3: How often do you have six or more drinks on one occasion?AnswerDate of YlkmiyomabUallleNppds54/20/2025 4:37 PM Lucita, Generic * Over the past 2 weeks, how often have you been bothered by any of the following problems?QuestionAnswerDate of AssessmentAuthorLittle interest or pleasure in doing thingsNot at all07/11/2024 8:26 AM Tony Camarillo MA Feeling down, depressed, or hopelessNot at all07/11/2024 8:26 AM Tony Camarillo MAPatient Health Questionnaire-2 Jdfrc234 8:26 AM Tony Camarillo MA documented as of this encounter Plan of Treatment DateTypeDepartmentCare Team (Latest Contact Info)Fisvydjhjtc16/10/2026 8:45 AM EDTOffice Visit [facility] [address] [place] [address] Denise Lazo MD [address] [place] [address] 12/15/2026 9:00 AM ESTOffice Visit [facility] [address] [place] [address] Yuri Bowers PA [address] [place] [address] documented as of this encounter Procedures Procedure NamePriorityDate/TimeAssociated DiagnosisCommentsXR CHEST 2V04/03/2024 4:27 PM EDT documented in this encounter Results * XR CHEST 2V (04/03/2024 4:27 PM EDT)Anatomical RegionLateralityModalityOther Specimen (Source)Anatomical Location / LateralityCollection Method / Volume Collection TimeReceived Time04/03/2024 4:27 PM EDT Narrative 04/03/2024 4:30 PM EDT [facility] ?[address] ? [place] [address] ?XRay Report ? Signed ? Patient: DIANA CHAMPION A ?MR#: [id number] ?? : 1955 ?Acct:[id number] ?? Age/Sex: 68 / F ?ADM Date: 04/03/24 ?? Loc: RAD ? Attending Dr: Shaikh Lev Velasquez ? Ordering Physician: Shaikh Eva Ohara ?? Date of Service: 04/03/24 ?? Procedure(s): XR chest 2V ?? Accession Number(s): [id number] ? cc: Shaikh Eva Ohara ? [facility] ? [address] [place] [address] ? [place] [address] ? Patient Name: ?? DIANA CHAMPION ? MRN: [facility]:[id number] ? date: 1955 ?Sex: F ?? Assigned Patient Location: RAD ?? Current Patient Location: RAD ?? Accession/Order Number: [id number] ?? Exam Date: 04/03/2024 ??15:40 ?Report Date: 04/03/2024 ??16:27 ? At the request of: ?LEV ? Procedure: ??XR chest 2V ? EXAMINATION: XR chest 2V ? HISTORY: Pneumonia of right middle lobe due to infectious organism ? COMPARISON: ? TECHNIQUE: PA and lateral ? FINDINGS: ?? LUNGS: Small amount of right mid lung infiltrates, significantly improved. The ? left lung is clear ?? VASCULATURE: No increased pulmonary vasculature. ?? PLEURA: Blunting of the right lateral costophrenic angle suggests a small ?? pleural effusion ?? CARDIAC: No cardiomegaly or cardiac silhouette abnormality. ?? MEDIASTINUM: No visible mass or adenopathy. ?? BONES: No fracture or visible bone lesion. ?? OTHER: Negative. ? XR/XR chest 2V ?? IMPRESSION: ? Interval improvement of right lung infiltrate ? Electronically authenticated by: BRITTANY ??RASHEEDA ?? Date: 04/03/2024 ??16:27 ? Dictated By: ?Brittany Vanessa M.D. ? Signed By: ?04/03/24 1630 ? DD/ 1627 ? TD/TT: ? Cable Splicer Assistant: Procedure Note Radiology, Radiologist, - 04/03/2024 [place] [address] XRay Report Signed Patient: DIANA CHAMPION AMR#: [id number] : 1955cct:[id number] Age/Sex: 68 / FADM Date: 04/03/24 Loc: [facility] Attending Dr: Shaikh Lev Velasquez Ordering Physician: Shaikh Eva Ohara Date of Service: 04/03/24 Procedure(s): XR chest 2V Accession Number(s): [id number] cc: Shaikh Eva Ohara The [address] [address] Patient Name: DIANA CHAMPION MRN: [id number] date: 1955 Sex: F Assigned Patient Location: [facility] Current Patient Location: [facility] Accession/Order Number: [id number] Exam Date: 04/03/2024 15:40 Report Date: 04/03/2024 [...] M.D. Signed By:04/03/24 1630 DD/ 1627 TD/TT: Cable Splicer Assistant: Authorizing ProviderResult TypeResult StatusShaikh Lev MDCLINISYNC IMAGING Final Result documented in this encounter Visit Diagnoses Not on filedocumented in this encounter Additional Health Concerns AssessmentNoted TimePHQ-9 Depression Total Score: 7101/03/2023 3:03 PM EST documented as of this encounter Care Teams Team MemberRelationshipSpecialtyStart DateEnd Date Shaikh Ohara MD PCP - GeneralInternal Medicine Tapan Barboza MD [address] [place] [address] PCP - GeneralFamily Medicine06/10/24 Ariella Mathis DO [address] [place] [address] Referring PhysicianNeurolog01/02/24 Mae Reese NP Nurse PractitionerFamily Medicine06/10/24documented as of this encounter
--- OUTSIDE RECORDS SUMMARY | 2025-09-14 11:29 | XMS_ITS | Encounter Summary ---
Author Organization [facility] Address [address] [place] [address] Care Team Providers Care Carton Filler Name Role Phone Shaikh BONNY Ohara Primary Care Provider [phone] Ariella Mathis DO Unavailable [phone] Tapan Barboza MD Primary Care Provider [phone] Mae Reese ART INSTALLER Unavailable [phone] Encounter Details DateTypeDepartmentCare Team (Latest Contact Info)Yhjiooyoosr75/25/2024Clinisync Result Encounter [facility] External Department Unsolicited Kaylene López NP [address] [place] [address] Social History Tobacco UseTypesPacks/DayYears UsedDateSmoking Tobacco: NeverPassive Smoke Exposure: NeverSmokeless Tobacco: NeverAlcohol UseStandard Drinks/WeekComments Never0 (1 standard drink = 0.6 oz pure alcohol)caffeine: more than 4 cups per [id number] Health LiteracyAnswerDate RecordedHow often do you need [...] times a week11/25/2024How often do you attend mu-ism or rastafari services?More than 4 times per year 11/25/2024Do you belong to any clubs or organizations such as mu-ism groups, unions, fraternal or athletic groups, or school groups?No11/25/2024How often do you attend meetings of the clubs or organizations you belong to?Never11/25/2024 Are you , , , , never , or living with a partner?Gyhipyos93/20/2025UDIT-CAnswerDate RecordedQ1: How often do you have a [...] care, and heating?Somewhat hard11/25/2024PHQ-2AnswerDate RecordedPatient Health Questionnaire-2 Xmgsy645Fin[facility] [place] of Occupational Health - Occupational Stress QuestionnaireAnswerDate RecordedDo you feel stress - tense, restless, nervous, or anxious, or unable to sleep at night because yourmind is troubled all the time - these days?Only a exeqsh3211/25/2024Exercise Vital Sign AnswerDate RecordedOn average, how many [...] steady place to sleep or slept in [place]elter (including now)?No 10/26/2023Housing Stability Vital SignAnswerDate RecordedIn the last 12 months, was there a time when you were not able to pay the mortgage or rent on time?No 11/25/2024In the past 12 months, how many times have you moved where you were living?t any time in the past 12 months, were you homeless or living in a jail (including now)?No11/25/2024CommentsUnknownSex and Gender InformationValueDate RecordedSex Assigned at BirthNot on fileLegal SexFemale 01/18/2023 7:03 PM EDTGender IdentityNot on fileSexual OrientationNot on file documented as of this encounter Functional Status * AUDIT-C ScoreAnswerDate of LgbzkvvwrnKthrki994/20/2025 4:37 PM Lucita, Generic * Q1: How often do you have a drink containing alcohol?AnswerDate of Assessment RnhsxhQrovh05/20/2025 4:37 PM Lucita, Generic * Q2: How many drinks containing alcohol do you have on a typical day when you are drinking?AnswerDate of AssessmentAuthorPatient does not drink11/25/2024 4:37 PM Lucita, Generic * Q3: How often do you have six or more drinks on one occasion?AnswerDate of QfyhaiirohBqqgtlDzwjc23/20/2025 4:37 PM Lucita, Generic * Over the past 2 weeks, how often have you been bothered by any of the following problems?QuestionAnswerDate of AssessmentAuthorLittle interest or pleasure in doing thingsNot at all07/11/2024 8:26 AM Tony Camarillo MA Feeling down, depressed, or hopelessNot at all07/11/2024 8:26 AM Tony Camarillo MAPatient Health Questionnaire-2 Mpadw654 8:26 AM Tony Camarillo MA documented as of this encounter Plan of Treatment DateTypeDepartmentCare Team (Latest Contact Info)Otsleisskoz43/10/2026 8:45 AM EDTOffice Visit [facility] [address] [place] [address] Denise Lazo MD [address] [place] [address] 12/15/2026 9:00 AM ESTOffice Visit [facility] [address] [place] [address] Yuri Bowers PA [address] [place] [address] documented as of this encounter Procedures Procedure NamePriorityDate/TimeAssociated DiagnosisCommentsMM TOMOSYNTHESIS SCREENING BI02/29/2024 4:01 PM EDT documented in this encounter Results * MM TOMOSYNTHESIS SCREENING BI (02/29/2024 4:01 PM EDT)Anatomical Region LateralityModalityOtherSpecimen (Source)Anatomical Location / Laterality Collection Method / VolumeCollection TimeReceived Time02/29/2024 4:01 PM EDT Narrative 02/29/2024 4:02 PM EDT [facility] ?[address] ? [place] [address] ? Mammography Report ? Signed ? Patient: DIANA CHAMPION A ?MR#: [id number] ?? : 1955 ?Acct:[id number] ?? Age/Sex: 68 / F ?ADM Date: 02/28/24 ?? Loc: MAMMO ? Attending Dr: Kaylene López NP ? Ordering Physician: Kaylene López NP ?Results: ? Date of Service: 02/28/24 ?Follow Up: ? Procedure(s): MM tomosynthesis screening BI ?? Accession Number(s): [id number] ? cc: Kaylene López NP; Shaikh Eva Ohara ? Patient Name: ? DIANA CHAMPION ? MR#: [id number] ? : 1955 ? Exam Date: 02/28/2024 ?? Ordering Doctor: CLEO López CNP ? RADIOLOGY REPORT ? PROCEDURE: ? MM TOMOSYNTHESIS SCREENING BI ? COMPARISON: ? MG MAMM SCREEN 3D PRATEEK CAD, 12/15/2022. ??MG MAMM SCREEN 3D PRATEEK ?? CAD, 11/26/2021. ??MG MAMM SCREEN PRATEEK W CAD, 11/19/2020. ??MG MAMM PRATEEK SCRN W CAD ?? DIG, 12/16/2013. ? INDICATIONS: ? Screening ? Calculator Name ? NCI Breast Cancer Risk Assessment Tool ?? 5 Year Breast Cancer Risk ? 1.20% ?? Lifetime Breast Cancer Risk ? 4.20% ?? Personal Breast Cancer ?No ?? Personal Ovarian Cancer ? No ?? Treatments ? Excision, radiation, chemotherapy ?? Family Cancers ? None ? LOCATION: ? [facility] ? BREAST COMPOSITION: ? The breasts are almost entirely fatty. ? FINDINGS: ? DIAGNOSTIC CATEGORY 1--NEGATIVE. ? RIGHT BREAST: ??No significant suspicious finding. ??No significant change has ?? occurred. ? LEFT BREAST: ??No significant suspicious finding. ??No significant change has ?? occurred. ? RECOMMENDATIONS: ? ROUTINE MAMMOGRAM AND CLINICAL EVALUATION IN 12 MONTHS. ? PLEASE NOTE: ??A NORMAL MAMMOGRAM DOES NOT EXCLUDE THE POSSIBILITY OF BREAST ?? CANCER. ??A CLINICALLY SUSPICIOUS PALPABLE LUMP SHOULD BE BIOPSIED. ? Dictated by: Michael Patel M.D. on 02/29/2024 at 16:00 ? Approved by: Michael Patel M.D. on 02/29/2024 at 16:01 ? Dictated By: ?Michael Patel M.D. ? Signed By: ?02/29/24 1602 ? DD/ 160 ? TD/TT: ? Molder Setter: Procedure Note Radiology, Radiologist, MD - 02/29/[address] [address] Mammography Report Signed Patient: DIANA CHAMPION AMR#: [id number] : 6Acct:[id number] Age/Sex: 68 / FADM Date: 02/28/24 Loc: MAMMO Attending Dr: Kaylene López ART INSTALLER Ordering Physician: Kaylene López NPResults: Date of Service: 02/28/24Follow Up: Procedure(s): MM tomosynthesis screening BI Accession Number(s): [id number] cc: Kaylene López NP; Shaikh Eva Ohara Patient Name: DIANA CHAMPION MR#: [id number] : 1955 Exam Date: 02/28/2024 Ordering Doctor: CLEO López DAMPER MAKER RADIOLOGY REPORT PROCEDURE: MM TOMOSYNTHESIS SCREENING BI [...] [facility] BREAST COMPOSITION: The breasts are [...] M.D. Signed By:02/29/24 1602 DD/ 1601 TD/TT: Molder Setter: Authorizing ProviderResult TypeResult StatusLisa Rene NPCLINISYNC IMAGING Final Result documented in this encounter Visit Diagnoses Not on filedocumented in this encounter Additional Health Concerns AssessmentNoted TimePHQ-9 Depression Total Score: 3:03 PM EST documented as of this encounter Care Teams Team MemberRelationshipSpecialtyStart DateEnd Date Shaikh Ohara MD PCP - GeneralInternal Medicine/02/27 Tapan Barboza MD [address] [place] [address] PCP - GeneralFamily Medicine06/10/24 Ariella Mathis DO [address] [place] [address] Referring PhysicianNeurology2 Mae Reese NP Nurse PractitionerFamily Medicine06/10/24documented as of this encounter
--- OUTSIDE RECORDS SUMMARY | 2025-09-14 11:29 | XMS_ITS | Encounter Summary ---
Author Organization [facility] Address [address] [facility] [place] [address] Care Team Providers Care Supervisor Grips Name Role Phone Shaikh BONNY Ohara Primary Care Provider [phone] Ariella Mathis DO Unavailable [phone] Tapan Barboza MD Primary Care Provider [phone] Mae Reese [employer] Unavailable [phone] Encounter Details DateTypeDepartmentCare Team (Latest Contact Info)Qjuzmmycglg08/22/2024Clinisync Result Encounter [facility] External Department Unsolicited Provider, Generic External Data Social History Tobacco UseTypesPacks/DayYears UsedDateSmoking Tobacco: NeverPassive Smoke Exposure: NeverSmokeless Tobacco: NeverAlcohol UseStandard Drinks/WeekComments Never0 (1 standard drink = 0.6 oz pure alcohol)caffeine: more than 4 cups per [id number] Health LiteracyAnswerDate RecordedHow often do you need [...] times a week11/25/2024How often do you attend caodaism or rastafarian services?More than 4 times per year 11/25/2024Do you belong to any clubs or organizations such as caodaism groups, unions, fraternal or athletic groups, or school groups?No11/25/2024How often do you attend meetings of the clubs or organizations you belong to?Never11/25/2024 Are you , , , , never , or living with a partner?Vofkimyy15/20/2025UDIT-CAnswerDate RecordedQ1: How often do you have a [...] care, and heating?Somewhat hard11/25/2024PHQ-2AnswerDate RecordedPatient Health Questionnaire-2 Jcuwv269Finmckay-[facility] [place] of Occupational Health - Occupational Stress QuestionnaireAnswerDate RecordedDo you feel stress - tense, restless, nervous, or anxious, or unable to sleep at night because yourmind is troubled all the time - these days?Only a nfnpoo9411/25/2024Exercise Vital Sign AnswerDate RecordedOn average, how many [...] steady place to sleep or slept in astorelter (including now)?No 10/26/2023Housing Stability Vital SignAnswerDate RecordedIn the last 12 months, was there a time when you were not able to pay the mortgage or rent on time?No 11/25/2024In the past 12 months, how many times have you moved where you were living?t any time in the past 12 months, were you homeless or living in a retirement (including now)?No11/25/2024CommentsUnknownSex and Gender InformationValueDate RecordedSex Assigned at BirthNot on fileLegal SexFemale 01/18/2023 7:03 PM EDTGender IdentityNot on fileSexual OrientationNot on file documented as of this encounter Functional Status * AUDIT-C ScoreAnswerDate of EwazgjgkviWkzyzu914/20/2025 4:37 PM ESTMychart, Generic * Q1: How often do you have a drink containing alcohol?AnswerDate of Assessment RqghlgOhvqk20/20/2025 4:37 PM Lucita, Generic * Q2: How many drinks containing alcohol do you have on a typical day when you are drinking?AnswerDate of AssessmentAuthorPatient does not drink11/25/2024 4:37 PM Lucita Generic * Q3: How often do you have six or more drinks on one occasion?AnswerDate of IqdamxpnjqMqczwjAdekb55/20/2025 4:37 PM Lucita Generic * Over the past 2 weeks, how often have you been bothered by any of the following problems?QuestionAnswerDate of AssessmentAuthorLittle interest or pleasure in doing thingsNot at all07/11/2024 8:26 AM Tony Camarillo MA Feeling down, depressed, or hopelessNot at all07/11/2024 8:26 AM Tony Camarillo MAPatient Health Questionnaire-2 Eyayr460 8:26 AM Tony Camarillo MA documented as of this encounter Plan of Treatment DateTypeDepartmentCare Team (Latest Contact Info)Yuyhumzugea69/10/2026 8:45 AM EDTOffice Visit [facility] [address] [place] [address] Denise Lazo MD [address] [facility] [address] [place] [address] 12/15/2026 9:00 AM ESTOffice Visit [facility] [address] [place] [address] Yuri Bowers PA [address] [place] [address] documented as of this encounter Procedures Procedure NamePriorityDate/TimeAssociated DiagnosisCommentsXR THORACIC SPINE 3V 03/27/2024 7:50 AM EDT documented in this encounter Results * XR THORACIC SPINE 3V (03/27/2024 7:50 AM EDT)Anatomical RegionLaterality ModalityOtherSpecimen (Source)Anatomical Location / LateralityCollection Method / VolumeCollection TimeReceived Time03/27/2024 7:50 AM EDT Narrative 03/27/2024 7:53 AM EDT [facility] ?[address] ? [place] [address] ?XRay Report ? Signed ? Patient: DIANA CHAMPION A ?MR#: [id number] ?? : 1955 ?Acct:[id number] ?? Age/Sex: 68 / F ?ADM Date: 03/26/24 ?? Loc: RAD ? Attending Dr: Jose Saucedo FISH[employer] TRAWL NET ? Ordering Physician: Jose Saucedo NP ?? Date of Service: 03/26/24 ?? Procedure(s): XR thoracic spine 3V ?? Accession Number(s): [id number] ? cc: Shaikh Eva Ohara; Jose Saucedo NP ? [facility] ? [address] [facility] ? [place] [address] ? Patient Name: ?? DIANA CHAMPION ? MRN: [facility]:[id number] ? date: 1955 ?Sex: F ?? Assigned Patient Location: RAD ?? Current Patient Location: ? Accession/Order Number: [id number] ?? Exam Date: 03/26/2024 ??15:13 ?Report Date: 03/27/2024 ??07:50 ? At the request of: ?? JOSE ??ZAINA ? Procedure: ??XR thoracic spine 3V ? EXAMINATION: XR thoracic spine 3V ? HISTORY: Thoracic spondulosis ? COMPARISON: No relevant comparison available. ? FINDINGS: ?? BONES: Moderate widespread spondylosis and facet osteoarthritis. No visible ?? acute bony abnormality. ?? DISC SPACES: Mild widespread disc height narrowing. ?? PARASPINOUS: Negative. No paraspinous abnormality is seen. ?? OTHER: Negative. ? XR/XR thoracic spine 3V ?? IMPRESSION: ? Moderate degenerative spondylosis ? Electronically authenticated by: BRITTANY ??RASHEEDA ?? Date: 03/27/2024 ??07:50 ? Dictated By: ?Brittany Vanessa M.D. ? Signed By: ?03/27/24 0753 ? DD/ 0750 ? TD/TT: ? Head Still Operator: Procedure Note Radiology, Radiologist, MD - 03/27/2024 [place] [address] XRay Report Signed Patient: DIANA CHAMPION AMR#: [id number] : 1955cct:[id number] Age/Sex: 68 / FADM Date: 03/26/24 Loc: RAD Attending Dr: Jose Saucedo NP Ordering Physician: Jose Saucedo NP Date of Service: 03/26/24 Procedure(s): XR thoracic spine 3V Accession Number(s): [id number] cc: Shaikh Eva Ohara; Jose Saucedo NP [place] [address] Patient Name: DIANA CHAMPION MRN: [facility]:[id number] date: 1955 Sex: F Assigned Patient Location: [facility] Current Patient Location: Accession/Order Number: [id number] Exam Date: 03/26/2024 15:13 Report Date: 03/27/2024 [...] M.D. Signed By:03/27/24 0753 DD/ 0750 TD/TT: Head Still Operator: Authorizing ProviderResult TypeResult StatusGeneric External Data Provider CLINISYNC IMAGINGFinal Result documented in this encounter Visit Diagnoses Not on filedocumented in this encounter Additional Health Concerns AssessmentNoted TimePHQ-9 Depression Total Score: 3:03 PM EST documented as of this encounter Care Teams Team MemberRelationshipSpecialtyStart DateEnd Date Shaikh Ohara MD PCP - GeneralInternal Medicine Tapan Barboza MD [address] [facility] [place] [address] PCP - GeneralFamily Medicine06/10/24 Ariella Mathis DO [address] [place] [address] Referring PhysicianNeurology2/ Mae Reese NP Nurse PractitionerFamily Medicine06/10/24documented as of this encounter
--- OUTSIDE RECORDS SUMMARY | 2025-09-14 11:29 | XMS_ITS | Encounter Summary ---
Author Organization [facility] Address [address] [place] [address] Care Team Providers Care Logging Assistant Name Role Phone Shaikh BONNY Ohara Primary Care Provider [phone] Ariella Mathis DO Unavailable [phone] Tapan Barboza MD Primary Care Provider [phone] Mae Reese SUPERINTENDENT [employer]ORAGE Unavailable [phone] Encounter Details DateTypeDepartmentCare Team (Latest Contact Info)Wrbsqelypxv63/09/2024Clinisync Result Encounter [facility] External Department Unsolicited Shaikh Ohara MD [address] [place] [address] Social History Tobacco UseTypesPacks/DayYears UsedDateSmoking Tobacco: NeverPassive Smoke Exposure: NeverSmokeless Tobacco: NeverAlcohol UseStandard Drinks/WeekComments Never0 (1 standard drink = 0.6 oz pure alcohol)caffeine: more than 4 cups per [id number] Health LiteracyAnswerDate RecordedHow often do you need [...] week11/25/2024How often do you attend spiritism or temple services?More than 4 times per year 11/25/2024Do you belong to any clubs or organizations such as spiritism groups, unions, fraConsano or athletic groups, or school groups?No11/25/2024How often do you attend meetings of the clubs or organizations you belong to?Never11/25/2024 Are you , , , , never , or living with a partner?Ubgdisjv73/20/2025UDIT-CAnswerDate RecordedQ1: How often do you have a [...] care, and heating?Somewhat hard11/25/2024PHQ-2AnswerDate RecordedPatient Health Questionnaire-2 Jxosh059Finutah [facility] hospital [place] of Occupational Health - Occupational Stress QuestionnaireAnswerDate RecordedDo you feel stress - tense, restless, nervous, or anxious, or unable to sleep at night because yourmind is troubled all the time - these days?Only a nqbisv8511/25/2024Exercise Vital Sign AnswerDate RecordedOn average, how many [...] homeless or living in a long-term (including now)?No11/25/2024CommentsUnknownSex and Gender InformationValueDate RecordedSex Assigned at BirthNot on fileLegal SexFemale 01/18/2023 7:03 PM EDTGender IdentityNot on fileSexual OrientationNot on file documented as of this encounter Functional Status * AUDIT-C ScoreAnswerDate of UnymwwhcaoGtqjer463/20/2025 4:37 PM Lucita, Generic * Q1: How often do you have a drink containing alcohol?AnswerDate of Assessment YghlchElshb14/20/2025 4:37 PM ESTNathaly, Generic * Q2: How many drinks containing alcohol do you have on a typical day when you are drinking?AnswerDate of AssessmentAuthorPatient does not drink11/25/2024 4:37 PM Lucita, Generic * Q3: How often do you have six or more drinks on one occasion?AnswerDate of KgfaapjfjxXbqyuhFclir68/20/2025 4:37 PM Lucita, Generic * Over the past 2 weeks, how often have you been bothered by any of the following problems?QuestionAnswerDate of AssessmentAuthorLittle interest or pleasure in doing thingsNot at all07/11/2024 8:26 AM Tony Camarillo MA Feeling down, depressed, or hopelessNot at all07/11/2024 8:26 AM Tony Camarillo MAPatient Health Questionnaire-2 Ziisq005 8:26 AM Tony Camarillo MA documented as of this encounter Plan of Treatment DateTypeDepartmentCare Team (Latest Contact Info)Wsiyrxgjklx80/10/2026 8:45 AM EDTOffice Visit [facility] [address] [place] [address] Denise Lazo MD [address] [place] [address] 12/15/2026 9:00 AM ESTOffice Visit [facility] [address] [place] [address] Yuri Bowers PA [address] [place] [address] documented as of this encounter Procedures Procedure NamePriorityDate/TimeAssociated DiagnosisCommentsMR LUMBAR SPINE WO CON02/13/2024 2:06 PM EDT documented in this encounter Results * MR LUMBAR SPINE WO CON (02/13/2024 2:06 PM EDT)Anatomical RegionLaterality ModalityOtherSpecimen (Source)Anatomical Location / LateralityCollection Method / VolumeCollection TimeReceived Time02/13/2024 2:06 PM EDT Narrative 02/13/2024 2:08 PM EDT [facility] ?[address] ? [place] [address] ? Magnetic Resonance Report ? Signed ? Patient: DIANA CHAMPION A ?MR#: [id number] ?? : 1955 ?Acct:[id number] ?? Age/Sex: 68 / F ?ADM Date: 02/13/24 ?? Loc: MRI ? Attending Dr: Shaikh Lev Velasquez ? Ordering Physician: Shaikh Eva Ohara ?? Date of Service: 02/13/24 ?? Procedure(s): MR lumbar spine wo con ?? Accession Number(s): [id number] ? cc: Shaikh Eva Ohara ? [facility] ? [address] [place] [address] ? [place] [address] ? Patient Name: ?? DIANA CHAMPION ? MRN: [facility]:[id number] ? date: 1955 ?Sex: F ?? Assigned Patient Location: MRI ?? Current Patient Location: MRI ?? Accession/Order Number: [id number] ?? Exam Date: 02/13/2024 ??10:45 ?Report Date: 02/13/2024 ??14:06 ? At the request of: ?LEV ? Procedure: ??MR lumbar spine wo con ? EXAMINATION: MR lumbar spine wo con ? HISTORY: chronic bilateral low back pain without sciatica ? COMPARISON: 09/05/2023 ? TECHNIQUE: A variety of imaging planes and parameters were utilized for ?? visualization of suspected pathology. ? FINDINGS: ?? For the purposes of numbering, sagittal T2 image # 8 extends from the T11 ?? vertebral body superiorly to the S3 level inferiorly. ? PARASPINAL AREA: Normal with no visible mass. ?? BONES: Rotatory dextroscoliosis. Moderate diffuse degenerative spondylosis. ?? Posterior decompression bilateral transpedicular fusion L5-S1. Interbody ?? spacer ?? L5-S1 ?? CORD/CAUDA EQUINA: Normal caliber, contour, and signal intensity. 1.8 cm area ?? 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 DISC LEVELS: ?? 12-L1: Early degenerative disc disease is present without focal protrusion or ?? neural impingement. ?? L1-L2: Mild to moderate disc space narrowing and disc desiccation, left ?? greater ?? than right. Moderate left disc/osteophyte complex. Mild trefoil narrowing of ?? the central canal. No right foraminal stenosis. Moderate narrowing of the left ? neural foramen ?? L2-L3: Moderate left disc space narrowing. Moderate left posterior ?? disc/osteophyte complex and facet osteoarthropathy. Mild trefoil narrowing the ? central canal. No right foraminal stenosis. Moderate to severe left foraminal ?? stenosis ?? L3-L4: Moderate disc/osteophyte complex and facet osteoarthropathy. No central ? canal stenosis. Mild to moderate bilateral foraminal stenosis. ?? L4-L5: Disc desiccation. No disc bulge or herniation. No central or foraminal ?? stenosis ?? L5-S1: Posterior decompression and fusion. Interbody spacer. No disc bulge or ?? herniation. No central or foraminal stenosis. ? MR/MR lumbar spine wo con ?? IMPRESSION: ? Rotatory dextroscoliosis ? Moderate to severe degenerative changes resulting in left L1-2 and L2-L3 and ?? bilateral L3-L4 foraminal stenosis ? Electronically authenticated by: BRITTANY ??RASHEEDA ?? Date: 02/13/2024 ??14:06 ? Dictated By: ?Brittany Vanessa M.D. ? Signed By: ?02/13/24 1408 ? DD/ ? TD/TT: ? Cellar Supervisor: Procedure Note Radiology, Radiologist, MD - 02/13/2024 [place] [address] Magnetic Resonance Report Signed Patient: DIANA CHAMPION#: [id number] : 6Acct:[id number] Age/Sex: 68 / FADM Date: 02/13/24 Loc: MRI Attending Dr: Shaikh Lev Velasquez Ordering Physician: Shaikh Eva Ohara Date of Service: 02/13/24 Procedure(s): MR lumbar spine wo con Accession Number(s): [id number] cc: Shaikh Eva Ohara [address] [address] Patient Name: DIANA CHAMPION MRN: [id number] date: 1955 Sex: F Assigned Patient Location: MRI Current Patient Location: MRI Accession/Order Number: [id number] Exam Date: 02/13/2024 10:45 Report Date: 02/13/2024 [...] M.D. Signed By:02/13/24 1408 DD/ 1406 TD/TT: Cellar Supervisor: Authorizing ProviderResult TypeResult StatusShaikh Lev MDCLINISYNC IMAGING Final Result documented in this encounter Visit Diagnoses Not on filedocumented in this encounter Additional Health Concerns AssessmentNoted TimePHQ-9 Depression Total Score: 7101/03/2023 3:03 PM EST documented as of this encounter Care Teams Team MemberRelationshipSpecialtyStart DateEnd Date Shaikh Ohara MD PCP - GeneralInternal Medicine/02/27 Tapan Barboza MD [address] [place] [address] PCP - GeneralFamily Medicine06/10/24 Ariella Mathis DO [address] [place] [address] Referring PhysicianNeurology2/ Mae Reese NP Nurse PractitionerFamily Medicine06/10/24documented as of this encounter
[2025-09-14 11:32] VITALS: BP 139/83; PULSE 70; TEMP 36.9; O2SAT 92; BMI 40.5
--- NOTE | 2025-09-14 11:41 | XR_ITS ---
[address] [address] Patient Name: JHONATAN MONTOYA MRN: [id number] date: 1955 Sex: F Assigned Patient Location: ER Current Patient Location: ER Accession/Order Number: [id number] Exam Date: 09/14/2025 12:08 Report Date: 09/14/2025 12:50 At the request of: CARLO LEON DO Procedure: XR chest 2V XR chest 2V 09/14/2025 12:12 PM SIGNS AND SYMPTOMS: ^cough, r/o PNA PROTOCOL: 07/06/2025 COMPARISON: None FINDINGS: The trachea is midline. The heart and mediastinal structures are within normal limits. The lung parenchyma is clear. The bony thorax is intact. Degenerative changes are noted in the thoracic spine and shoulders. XR/XR chest 2V IMPRESSION: No acute cardiopulmonary pathology. Impression dictated by: Garland Haley M.D. 09/14/2025 12:50 PM Dictation Location: [place] [address] Electronically authenticated by: [id number] Y Date: 09/14/2025 12:50
--- NOTE | 2025-09-14 11:42 | ECG_ITS ---
[facility] Test Date: 2025-09-14 Pat Name: JHONATAN MONTOYA Department: Room: - Gender: Female [employer] Account Assistant: : 1955 Requested By: [id number] Order Number: [id number] [place] MD: ALICIA TOUSSAINT M.D. Measurements Intervals [place] Rate: 65 P: 63 KS: 132 QRS: -43 QRSD: 122 T: 52 QT: 426 QTc: 437 Interpretive Statements 1100 Sinus rhythm 3113 Cannot rule out anterior myocardial infarction, probably old 7200 Abnormal left axis deviation 9150 abnormal ECG Compared to ECG 07/08/2025 05:31:30 Left-axis deviation now present Intraventricular conduction delay no longer present Myocardial infarct finding still present Electronically Signed On 09-14-2025 16:44:09 EST by ALICIA TOUSSAINT M.D.
[2025-09-14 11:53] VITALS: O2SAT 93
[2025-09-14 12:00] LABS: Hematocrit 40.3 % (36.0-48.0); Hemoglobin 13.0 g/dL (12.0-16.0); Immature Granulocytes Abs Auto 0.06 10^3/uL (0.00-0.03); Immature Granulocytes Pct Auto 0.9 % (0.0-0.5); Lymphocytes Absolute Auto 1.8 10^3/uL (1.2-3.8); Mean Corpuscular HGB Conc 32.3 g/dL (29.9-35.2); Mean Corpuscular Hemoglobin 29.7 pg (26.7-34.0); Mean Corpuscular Volume 92.0 fL (81.0-99.0); Platelet Count 219 10^3/uL (150-450); Red Blood Count 4.38 10^6/uL (4.20-5.40); White Blood Count 6.7 10^3/uL (4.0-11.0)
[2025-09-14 12:10] LABS: SARS-CoV-2 Ag POSITIVE (NEGATIVE)
[2025-09-14 12:13] LABS: Anion Gap 12.7
[2025-09-14 12:15] LABS: Alanine Aminotransferase 21 U/L (14-59); Albumin Globulin Ratio 0.7; Albumin Level 2.9 g/dL (3.4-5.0); Alkaline Phosphatase 92 U/L (46-116); Aspartate Amino Transferase 25 U/L (15-37); Blood Urea Nitrogen 8.0 mg/dL (7.0-18.0); Calcium 8.1 mg/dL (8.5-10.1); Carbon Dioxide 25.8 mmol/L (21.0-32.0); Chloride 108 mmol/L (98-107); Estimated GFR (African America 57 (>=60 mL/min/1.73m^2); Estimated GFR (Non-African Ame 47 (>=60 mL/min/1.73m^2); Globulin 4.2 g/dL; Glucose 110 mg/dL (74-106); Potassium 3.5 mmol/L (3.5-5.1); Sodium 143 mmol/L (136-145); Total Protein 7.1 g/dL (6.4-8.2)
--- NOTE | 2025-09-14 16:40 | ED.GENADUL1 ---
HPI HPI - General Adult General Chief complaint: Upper Respiratory Infection Stated complaint: general weakness Time Seen by Provider: 09/14/25 11:26 Source: patient Mode of arrival: Wheelchair History of Present Illness HPI narrative: Patient is a 70-year-old female, history significant for COPD and CHF on 3 L home oxygen, presenting to the emergency department for 3 to 4-day history of flulike symptoms. Patient states she has had a cough, congestion, body aches, and shortness of breath since the onset of her symptoms. She denies any associated chest pain. She has had no nausea or vomiting. Related Data Home Medications ?Medication ?Instructions ?Recorded ?Confirmed omeprazole 20 mg capsule,delayed 20 mg PO BID 04/10/23 09/14/25 release pregabalin 75 mg capsule 75 mg PO BID 11/25/23 09/14/25 trazodone 100 mg tablet 100 mg PO .qhs 11/25/23 09/14/25 albuterol sulfate 2.5 mg/3 mL 2.5 mg inhalation QID PRN 06/06/24 09/14/25 (0.083 %) solution for nebulization shortness of breath or wheezing latanoprost 0.005 % eye drops 1 drp ophthalmic (eye) .HS 08/09/24 09/14/25 paroxetine HCl 40 mg tablet 40 mg PO HS 03/10/25 09/14/25 pramipexole 0.25 mg tablet 0.25 mg PO .qhs PRN restless leg(s) 03/11/25 09/14/25 ensifentrine 3 mg/2.5 mL 2.5 ml inhalation BID 04/30/25 09/14/25 suspension for nebulization (Ohtuvayre) ferrous sulfate 325 mg (65 mg 325 mg PO .every other day 04/30/25 09/14/25 iron) tablet (iron) trospium 60 mg capsule,extended 60 mg PO DAILY 04/30/25 09/14/25 release 24 hr albuterol sulfate 90 mcg/actuation 2 puff inhalation Q4H PRN 07/05/25 09/14/25 aerosol inhaler shortness of breath or wheezing bupropion HCl 150 mg 24 hr tablet, 150 mg PO .Q AM 07/05/25 09/14/25 extended release fluticasone propionate 50 2 spray intranasal DAILY 07/05/25 09/14/25 mcg/actuation nasal spray,suspension furosemide 20 mg tablet 20 mg PO .Q AM 07/05/25 09/14/25 budesonide 160 mcg-glycopyr 9 2 inh inhalation BID 07/06/25 09/14/25 mcg-formot 4.8 mcg/actuation HFA inhaler (Breztri Aerosphere) cholecalciferol (vitamin D3) 25 1,000 unit PO DAILY 07/06/25 09/14/25 mcg (1,000 unit) chewable tablet (VitaJoy Daily D) magnesium oxide 400 mg (241.3 mg 400 mg PO .Q AM 07/06/25 09/14/25 magnesium) tablet montelukast 10 mg tablet 10 mg PO .Q Am 07/06/25 09/14/25 mirabegron 25 mg tablet,extended 25 mg PO DAILY 09/14/25 09/14/25 release 24 hr (Myrbetriq) nystatin 100,000 unit/gram topical 1 applic topical BID PRN dermatitis 09/14/25 09/14/25 cream potassium chloride 20 mEq 20 meq PO DAILY 09/14/25 09/14/25 tablet,extended release Allergies Allergy/AdvReac Type Severity Reaction Status Date / Time No Known Drug Allergies Allergy Verified 07/05/25 15:15 Opioid HPI Opioid Management Most Recent Opioid Data: Last Pain Scale 4 07/08/25, 17:47 Last Pain Intensity 0 03/11/25, 14:27 Last ORT Total Score 0 07/05/25, 20:27 Last ORT Risk Category Low Risk 07/05/25, 20:27 Review of Systems ROS Status of ROS 10 or more systems reviewed and unremarkable except as noted in history and below [facility] Medical History (Updated 09/14/25 @ 12:55 by Denis Baez DO) Anemia ?D64.9 - Anemia, unspecified (ICD-10) Chronic respiratory failure ?J96.10 - Chronic respiratory failure, unspecified whether with hypoxia or hypercapnia (ICD-10) Hypokalemia ?E87.6 - Hypokalemia (ICD-10) Hypomagnesemia ?E83.42 - Hypomagnesemia (ICD-10) Acute exacerbation of chronic obstructive pulmonary disease ?J44.1 - Chronic obstructive pulmonary disease with (acute) exacerbation (ICD-10) Diet-controlled diabetes mellitus ?E11.9 - Type 2 diabetes mellitus without complications (ICD-10) Tracheobronchomalacia ?J39.8 - Other specified diseases of upper respiratory tract (ICD-10) 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 - Critical illness myopathy (ICD-10) Upper respiratory infection ?J06.9 - Acute upper respiratory infection, unspecified (ICD-10) Hypoxemia ?R09.02 - Hypoxemia (ICD-10) Acute and chronic respiratory failure ?J96.20 - Acute and chronic respiratory failure, unspecified whether with hypoxia or hypercapnia (ICD-10) Weakness ?R53.1 - Weakness (ICD-10) RLL pneumonia ?J18.9 - Pneumonia, unspecified organism (ICD-10) Acute viral syndrome ?B34.9 - Viral infection, unspecified (ICD-10) Asthma exacerbation in COPD ?J44.1 - Chronic obstructive pulmonary disease with (acute) exacerbation (ICD-10) Hypomagnesemia ?E83.42 - Hypomagnesemia (ICD-10) Acute hypokalemia ?E87.6 - Hypokalemia (ICD-10) Pneumonia ?J18.9 - Pneumonia, unspecified organism (ICD-10) Melanoma ?C43.9 - Malignant melanoma of skin, unspecified (ICD-10) Mediastinal lymphadenopathy ?R59.0 - Localized enlarged lymph nodes (ICD-10) Restrictive lung disease ?J98.4 - Other disorders of lung (ICD-10) CAD (coronary artery disease) ?I25.10 - Atherosclerotic heart disease of kashia coronary artery without angina pectoris (ICD-10) Chronic heart failure with preserved ejection fraction (HFpEF) ?I50.32 - Chronic diastolic (congestive) heart failure (ICD-10) Acute exacerbation of COPD with asthma ?J44.1 - Chronic obstructive pulmonary disease with (acute) exacerbation (ICD-10) ?J45.901 - Unspecified asthma with (acute) exacerbation (ICD-10) Lumbar radiculopathy ?M54.16 - Radiculopathy, lumbar region (ICD-10) Encounter for long-term opiate analgesic use ?Z79.891 - intermediate (current) use of opiate analgesic (ICD-10) Failed back syndrome ?M96.1 - Postlaminectomy syndrome, not elsewhere classified (ICD-10) Acute exacerbation of chronic low back pain ?M54.50 - Low back pain, unspecified (ICD-10) ?G89.29 - Other chronic pain (ICD-10) Thoracic spondylosis ?M47.814 - Spondylosis without myelopathy or radiculopathy, thoracic region (ICD-10) Hypoxia ?R09.02 - Hypoxemia (ICD-10) URI (upper respiratory infection) ?J06.9 - Acute upper respiratory infection, unspecified (ICD-10) Orthostasis ?I95.1 - Orthostatic hypotension (ICD-10) Community acquired pneumonia ?J18.9 - Pneumonia, unspecified organism (ICD-10) Severe malnutrition ?E43 - Unspecified severe protein-calorie malnutrition (ICD-10) Acute exacerbation of chronic obstructive pulmonary disease (COPD) ?J44.1 - Chronic obstructive pulmonary disease with (acute) exacerbation (ICD-10) Severe persistent asthma with exacerbation ?J45.51 - Severe persistent asthma with (acute) exacerbation (ICD-10) Morbid obesity ?E66.01 - Morbid (severe) obesity due to excess calories (ICD-10) Other pulmonary collapse ?J98.19 - Other pulmonary collapse (ICD-10) Chronic respiratory failure with hypoxia ?J96.11 - Chronic respiratory failure with hypoxia (ICD-10) Bronchitis ?J40 - Bronchitis, not specified as acute or chronic (ICD-10) Acute exacerbation of chronic obstructive pulmonary disease ?J44.1 - Chronic obstructive pulmonary disease with (acute) exacerbation (ICD-10) Myofascial pain ?M79.18 - Myalgia, other site (ICD-10) Greater trochanteric bursitis ?M70.60 - Trochanteric bursitis, unspecified hip (ICD-10) Osteoarthritis of right hip ?M16.11 - Unilateral primary osteoarthritis, right hip (ICD-10) Lumbar spondylosis ?M47.816 - Spondylosis without myelopathy or radiculopathy, lumbar region (ICD-10) Lumbar postlaminectomy syndrome ?M96.1 - Postlaminectomy syndrome, not elsewhere classified (ICD-10) Lumbar stenosis with neurogenic claudication ?M48.062 - Spinal stenosis, lumbar region with neurogenic claudication (ICD-10) Depression ?F32.A - Depression, unspecified (ICD-10) Chronic low back pain ?M54.50 - Low back pain, unspecified (ICD-10) ?G89.29 - Other chronic pain (ICD-10) Hypoxia ?R09.02 - Hypoxemia (ICD-10) Heart murmur ?R01.1 - Cardiac murmur, unspecified (ICD-10) Chronic obstructive pulmonary disease ?J44.9 - Chronic obstructive pulmonary disease, unspecified (ICD-10) Asthma ?J45.909 - Unspecified asthma, uncomplicated (ICD-10) Surgical History H/O cataract removal with insertion of prosthetic lens ?Z98.49 - Cataract extraction status, unspecified eye (ICD-10) ?Z96.1 - Presence of intraocular lens (ICD-10) Status post hip surgery ?Z98.890 - Other specified postprocedural states (ICD-10) H/O foot surgery ?Z98.890 - Other specified postprocedural states (ICD-10) H/O tubal ligation ?Z98.51 - Tubal ligation status (ICD-10) History of lumbar fusion ?Z98.1 - Arthrodesis status (ICD-10) Family History Mother Family history of CHF (congestive heart failure) Family history of hypertension Father Family history of hypertension Family history of myocardial infarction Social History (Updated 07/05/25 @ 22:10 by Yuni Loza RN) Within the past year, how often did you have a drink containing alcohol: never Within the past year, how often did you have six or more drinks on one occasion: never Score interpretation: A score less than 3 is consistent with normal alcohol consumption. Smoking status: Never smoker Second hand tobacco smoke exposure: No Non-prescribed substance use: denies use Previous occupational history: retired Known occupational exposures/hazards: No Highest level of school completed/degree received: Associate degree: occupational, technical, vocational program Are you now , , , , never or living with a partner: In a typical week, how many times do you talk on the telephone with family, friends, or neighbors: 3 or more times per week How often do you get together with friends or relatives: 3 or more times per week How often do you attend anabaptist or jain services: 4 or more times per year Do you belong to any clubs or organizations such as anabaptist groups unions, fraternal or athletic groups, or school groups: no Total score: 2 Score interpretation: A score of greater than or equal to 2 indicates the lowest level of social isolation. Little interest or pleasure in doing things: not at all Feeling down, depressed, or hopeless: not at all Feel stressed/tense/nervous/anxious/difficulty sleeping: not at all Do you think of yourself as: straight/heterosexual Gender Identity: female Exam Narrative Exam Narrative: CONSTITUTIONAL: No acute distress, speaking in full sentences, answering questions and following commands appropriately SKIN: Was warm and dry. EYES: Sclerae white. EARS, NOSE, THROAT: Moist oral mucosa. RESPIRATORY: Clear to auscultation bilaterally, no wheezes, crackles, or stridor, no use of accessory muscles CARDIOVASCULAR: Normal rate and regular rhythm. There is no S3, S4, murmur, rub. GASTROINTESTINAL: Abdomen is nondistended. MUSCULOSKELETAL: No peripheral edema. NEUROLOGIC: Patient is awake and alert. Facies were symmetrical. Constitutional Vital Signs, click to edit/add: Last Vital Signs Temp 98.4 F 09/14/25 11:32 Pulse 70 09/14/25 11:32 Resp 20 09/14/25 11:32 BP 139/83 09/14/25 11:32 Pulse Ox 93 L 09/14/25 11:53 O2 Del Method Nasal Cannula 09/14/25 11:53 O2 Flow Rate 3 09/14/25 11:53 Course Vital Signs Vital signs: Vital Signs Temperature 98.4 F 09/14/25 11:32 Pulse Rate 70 09/14/25 11:32 Respiratory Rate 20 09/14/25 11:32 Blood Pressure 139/83 09/14/25 11:32 Pulse Oximetry 92 L 09/14/25 11:32 Oxygen Delivery Method Nasal Cannula 09/14/25 11:32 Oxygen Delivery Flow Rate 3 09/14/25 11:32 Temperature 98.4 F 09/14/25 11:32 Pulse Rate 70 09/14/25 11:32 Respiratory Rate 20 09/14/25 11:32 Blood Pressure 139/83 09/14/25 11:32 Pulse Oximetry 93 L 09/14/25 11:53 Oxygen Delivery Method Nasal Cannula 09/14/25 11:53 Oxygen Delivery Flow Rate 3 09/14/25 11:53 Medical Decision Making MDM Narrative Medical decision making narrative: Patient is a 70-year-old female presenting to the emergency department with a 3 to 4-day history of URI symptoms and shortness of breath. She has a history of COPD and CHF on 3 L home oxygen. Vital signs arrival are within normal limits. She is afebrile and hemodynamically stable. She saturate 93% on her home oxygen requirements. Differential diagnosis includes ACS, pneumonia, URI, pneumothorax, CHF exacerbation, or other electrolyte/metabolic derangement. IV was established and laboratory studies were obtained. Chest x-ray independently reviewed/interpreted by myself demonstrated no acute cardiopulmonary process. Laboratory studies were unremarkable. No significant electrolyte or metabolic derangement. No evidence of acute kidney injury. No anemia, leukocytosis, or thrombocytopenia. No transaminitis or hyperbilirubinemia. Troponin nonelevated. COVID-19 PCR was positive. 12 Lead EKG: Normal sinus rhythm at a rate of 65. Normal axis. QS complexes in the septal leads, likely from prior infarct. No ST segment elevations. QRS, VT, and QTc interval within normal limits. Unchanged compared to prior EKG. Final impression: normal sinus rhythm without evidence of acute myocardial ischemia On reevaluation, patient states she feels well enough to go home. She is breathing comfortably on her home oxygen requirements. Though she has a COVID infection, she does not have evidence of associated pneumonia or worsening hypoxia from her baseline. I do believe she stable for discharge and outpatient follow-up with her PCP. Return precautions were given including any new or concerning symptoms. Patient understands and agrees the plan. FINAL IMPRESSION: #Acute COVID-19 infection DISPOSITION: Discharged home CONDITION: Good Medical Records Medical records reviewed: Yes I reviewed the patient's medical records Lab Data Lab results reviewed: Yes I reviewed the patient's lab results Labs: Lab Results 09/14/25 09/14/25 Range/Units 11:40 11:45 WBC 6.7 (4.0-11.0) 10^3/uL RBC 4.38 (4.20-5.40) 10^6/uL Hgb 13.0 (12.0-16.0) g/dL Hct 40.3 (36.0-48.0) % MCV 92.0 (81.0-99.0) fL MCH 29.7 (26.7-34.0) pg MCHC 32.3 (29.9-35.2) g/dL RDW 13.6 (11.0-15.0) % Plt Count 219 (150-450) 10^3/uL MPV 9.1 L (9.5-13.5) fL Neut % (Auto) 61.4 (43.0-75.0) % Lymph % (Auto) 27.1 (20.5-60.0) % Barnes % (Auto) 8.6 (1.7-12.0) % Eos % (Auto) 1.4 (0.9-7.0) % Baso % (Auto) 0.6 (0.2-2.0) % Neut # (Auto) 4.1 (1.4-6.5) 10^3/uL Lymph # (Auto) 1.8 (1.2-3.8) 10^3/uL Barnes # (Auto) 0.6 (0.3-0.8) 10^3/uL Eos # (Auto) 0.1 (0.0-0.7) 10^3/uL Baso # (Auto) 0.0 (0.0-0.1) 10^3/uL Abs Immat Gran (auto) 0.06 H (0.00-0.03) 10^3/uL Imm/Tot Granulo (auto) 0.9 H (0.0-0.5) % Sodium 143 (136-145) mmol/L Potassium 3.5 (3.5-5.1) mmol/L Chloride 108 H (98-107) mmol/L Carbon Dioxide 25.8 (21.0-32.0) mmol/L Anion Gap 12.7 BUN 8.0 (7.0-18.0) mg/dL Creatinine 1.14 H (0.55-1.02) mg/dL Est GFR ( Amer) 57 L (>=60 mL/min/1.73m^2) Est GFR (Non-Af Amer) 47 L (>=60 mL/min/1.73m^2) BUN/Creatinine Ratio 7.0 Glucose 110 H (74-106) mg/dL Calcium 8.1 L (8.5-10.1) mg/dL Total Bilirubin 0.1 L (0.2-1.0) mg/dL AST 25 (15-37) U/L ALT 21 (14-59) U/L Alkaline Phosphatase 92 (46-116) U/L Troponin I High Sens 20.5 (4.0-51.3) pg/mL Total Protein 7.1 (6.4-8.2) g/dL Albumin 2.9 L (3.4-5.0) g/dL Globulin 4.2 g/dL Albumin/Globulin Ratio 0.7 Influenza Type A Ag Negative Influenza Type B Ag Negative SARS-CoV-2 Ag (CV2AG) Positive A (NEGATIVE) Imaging Data Chest x-ray: Attestation: I personally reviewed and interpreted this imaging study as follows: Radiologist's impression: ITS Impressions Chest X-Ray 09/14/25 11:41 IMPRESSION: No acute cardiopulmonary pathology. Impression dictated by: Garland Haley M.D. 09/14/2025 12:50 PM Dictation Location: [place] [address] Electronically authenticated by: [id number] Y Date: 09/14/2025 12:50 ECG Data Attestation: I personally reviewed and interpreted this ECG as follows: Discharge Plan Discharge Chief Complaint: Upper Respiratory Infection Clinical Impression: COVID-19 Patient Disposition: Home, Self-Care Time of Disposition Decision: 12:55 Condition: Good Mode of Transportation: Private Vehicle Prescriptions / Home Meds: No Action albuterol sulfate 2.5 mg /3 mL (0.083 %) solution for nebulization 2.5 mg inhalation QID PRN (Reason: shortness of breath or wheezing) latanoprost 0.005 % drops 1 drp OPHTHALMIC (EYE) .HS ferrous sulfate [iron] 325 mg (65 mg iron) tablet 325 mg PO .every other day trospium 60 mg capsule,extended release 24hr 60 mg PO DAILY Rx Instructions: must be taken on empty stomach at least 1 hour before a meal/food with water only Ohtuvayre 3 mg/2.5 mL suspension for nebulization 2.5 ml inhalation BID furosemide 20 mg tablet 20 mg PO .Q AM albuterol sulfate 90 mcg/actuation HFA aerosol inhaler 2 puff INHALATION Q4H PRN (Reason: shortness of breath or wheezing) fluticasone propionate 50 mcg/actuation spray,suspension 2 spray INTRANASAL DAILY bupropion HCl 150 mg tablet extended release 24 hr 150 mg PO .Q AM magnesium oxide 400 mg (241.3 mg magnesium) tablet 400 mg PO .Q AM cholecalciferol (vitamin D3) [VitaJoy Daily D] 25 mcg (1,000 unit) tablet,chewable 1,000 unit PO DAILY Breztri Aerosphere 160-9-4.8 mcg/actuation HFA aerosol inhaler 2 inh inhalation BID montelukast 10 mg tablet 10 mg PO .Q Am potassium chloride 20 mEq tablet extended release 20 meq PO DAILY nystatin 100,000 unit/gram cream 1 applic TOPICAL BID PRN (Reason: dermatitis) mirabegron [Myrbetriq] 25 mg tablet extended release 24 hr 25 mg PO DAILY omeprazole 20 mg capsule,delayed release(DR/EC) 20 mg PO BID Patient Comments: Pt states that she takes these at 0900 and 2100 pregabalin 75 mg capsule 75 mg PO BID trazodone 100 mg tablet 100 mg PO .qhs paroxetine HCl 40 mg tablet 40 mg PO HS pramipexole 0.25 mg tablet 0.25 mg PO .qhs PRN (Reason: restless leg(s)) Print Language: Romanian Instructions: COVID-19 (Coronavirus Disease 2019) (ED) Referrals: Kaylene López NP [Primary Care Provider, Family Practice] - 1 week Discharge Date/Time: 09/14/25 13:19
== END 2025-09-14 13:19 | disposition home or self-care (01) ==
PROVIDERS: Emergency Provider Student in an Organized Health Care Education/Training Program; PCP Nurse Practitioner
DX: U07.1 COVID-19 (principal); J44.9 Chronic obstructive pulmonary disease, unspecified; I50.9 Heart failure, unspecified; Z99.81 Dependence on supplemental oxygen; R06.02 Shortness of breath
CPT/HCPCS: 36415; 71046; 80053; 84484; 85025; 87804; 87811; 93005; 99285

== ENCOUNTER 2025-09-26 12:53 | Outpatient (OUT) | payer MEDICARE, MEDICAID, SELFPAY ==
--- OUTSIDE RECORDS SUMMARY | 2025-01-15 06:00 | XMS_ITS ---
Author Organization The [facility] in [place] Address [address] [place] [address] Care Team Providers Care Early Intervention Specialist Name Role Phone Kaylene López CNP Primary Care Provider Unavail rosalba Lopes Corbin Unavailable [phone] REASON FOR VISIT HOSPITAL F/U Encounters Encounter Location Date Provider Diagnosis Pulmonary Medicine [place] [address] [place] [address] 01/15/2025 Corbin Lopes Plan Of Treatment No Information Progress Notes * [place] CHAMPION ADOB: (70 yo F)Acc No.[id number]:01/15/2025 UNLOCKED PROGRESS NOTE Progress Note Patient: [place] AMARAL :?Corbin Lopes DODOB:1955???Age:69 Y ???Sex:FemaleDate:01/15/2025Phone:[phone]:[address], [address], [place], [id number]:Kaylene López CNP Subjective: * Chief Complaints: * 1 . HOSPITAL F/U. * Medical History: Objective: * Vitals: Assessment: Plan: * Treatment: * * Electronic signature of Corbin Lopes DO on 09/26/2025 at 01:00 PM ESTSign off status: PendingVisit Status:?R/S (Rescheduled) * Provider: Jona Lopes DO Date: 0 01/15/2025 Generated for Printing/Faxing/eTransmitting on:?09/26/2025 01:00 PM EST
--- OUTSIDE RECORDS SUMMARY | 2025-01-22 04:00 | XMS_ITS ---
Author Organization The [facility] in [place] Address [address] [place] [address] Care Team Providers Care Machine Feeder Floorperson Name Role Phone Kaylene López CNP Primary Care Provider Unavail Corbin Garcia Unavailable [phone] REASON FOR VISIT 3 Mos f/u COPD Encounters Encounter Location Date Provider Diagnosis Pulmonary Medicine [address] [address] 01/22/2025 Corbin Lopes Plan Of Treatment No Information Progress Notes * [place] CHAMPION ADOB: (70 yo F)Acc No.[id number]:01/22/2025 UNLOCKED PROGRESS NOTE Follow Up Patient: [place] AMARAL :?Corbin Dion DODOB:1955???Age:69 Y ???Sex:FemaleDate:01/22/2025Phone:[phone]:[address], [address], [place], [phone]:Kaylene López CNP Subjective: * Chief Complaints: * 1 . 3 Mos f/u COPD. * Medical History: Objective: * Vitals: Assessment: Plan: * Treatment: * * Electronic signature of [place] Lopes DO on 09/26/2025 at 01:01 PM ESTSign off status: PendingVisit Status:?R/S By O/P (Rescheduled by Office/Provider) * Provider: Jona Lopes DO Date: 0 01/22/2025 Generated for Printing/Faxing/eTransmitting on:?09/26/2025 01:01 PM EST
--- OUTSIDE RECORDS SUMMARY | 2025-07-02 05:30 | XMS_ITS ---
Author Organization The [facility] in [place] Address [address] [place] [address] Care Team Providers Care Chief Enterprise Architect Name Role Phone Kaylene López CNP Primary Care Provider Unavail Corbin Garcia Unavailable [phone] REASON FOR VISIT 3m F/U - COPD Encounters Encounter Location Date Provider Diagnosis Pulmonary Medicine [address] [address] 07/02/2025 Corbin Lopes Plan Of Treatment No Information Progress Notes * Diana CHAMPION ADOB: (70 yo F)Acc No.[id number]:07/02/2025 UNLOCKED PROGRESS NOTE Follow Up Patient: Diana AMARAL :?Corbin Dion DODOB:1955???Age:69 Y ???Sex:FemaleDate:07/02/2025Phone:[phone]:[address], [address], [place], [phone]:Kaylene López CNP Subjective: * Chief Complaints: * 1 . 3m F/U - COPD. * Medical History: Objective: * Vitals: Assessment: Plan: * Treatment: * * Electronic signature of Corbin Lopes DO on 09/26/2025 at 01:00 PM ESTSign off status: PendingVisit Status:?OFF CANC (OFFICE CANCEL) * Provider: Jona Lopes DO Date: 0 07/02/2025 Generated for Printing/Faxing/eTransmitting on:?09/26/2025 01:00 PM EST
--- OUTSIDE RECORDS SUMMARY | 2025-09-23 06:54 | XMS_ITS | Continuity of Care Document ---
Author Organization [facility] Address [address] [place] [address] Phone Care Team Providers Care Observation Assistant Name Role Phone Michael Collier Attending Provider Mae ReeesC Primary Care Provid er Nicolas Dickinson DO Attending Provider Kaylene López NP-C Primary Care Provider Kaylene López NP-C Attending Provider Care Teams Patient Care Team Team Status: Active Member Role/Relationship Status Dates Kaylene López NP-Zeina Primary Care Provider Active Visit Care Team Team Status: Active Member Role/Relationship Status Dates Michael Collier Attending Provider Active Start: Paolo wing 2003 Visit Care Team Team Status: Active Member Role/Relationship Status Dates Michael Clolier Attending Provider Active Start: Paolo deras 2003 Visit Care Team Team Status: Active Member Role/Relationship Status Dates FAMILIA AgC Primary Care Provider Ac tive Start: July 09, 2025 Nicolas Dickinson DOAttending ProviderActiveStart: July 09, 2025 Visit Care Team Team Status: Inactive Member Role/Relationship Status Dates Kaylene J Aichholz , [employer]-C Primary Care Provider Active Start: July 17, 2025 End: July 17, 2025Kaylene López , [employer]ER-CAttending ProviderActiveStart: July 17, 2025 End: July 17, 2025 Visit Care Team Team Status: Active Member Role/Relationship Status Dates Kaylene López , [employer]RE [employer]ER-C Primary Care Provider Active Start: July 18, 2025 Kaylene López , [employer]RE [employer]OLLER-CAttending ProviderActiveStart: July 18, 2025 Visit Care Team Team Status: Inactive Member Role/Relationship Status Dates Kaylene López , [employer]-C Primary Care Provider Active Start: August 04, 2025 End: August 04, 2025Kaylene López , [employer]-CAttending ProviderActiveStart: August 04, 2025 End: August 04, 2025 Visit Care Team Team Status: Inactive Member Role/Relationship Status Dates Kaylene López , [employer]RE [employer]-C Primary Care Provider Active Start: August 18, 2025 End: August 18, 2025Kaylene López , [employer]-CAttending ProviderActiveStart: August 18, 2025 End: August 18, 2025 Visit Care Team Team Status: Active Member Role/Relationship Status Dates Kaylene Paolo López , [employer]-C Primary Care Provider Active Start: September 03, 2025 Kaylene López , [employer]ER-CAttending ProviderActiveStart: September 03, 2025 Patient Care Team Team Status: Active Member Role/Relationship Status Dates Kaylene Paolo López , [employer]-C Primary Care Provider Active Start: September 14, 2025 Kaylene López , [employer]-CAttending ProviderActiveStart: September 14, 2025 Patient Care Team Team Status: Inactive Member Role/Relationship Status Dates Kaylene Paolo López , [employer]-C Primary Care Provider Active Start: September 23, 2025 End: September 23, 2025Kaylene López , [employer]-CAttending ProviderActiveStart: September 23, 2025 End: September 23, 2025 Chief Complaint and Reason for Visit Chief Complaint Admit Date ^ April 26, 2004 7:04 am ^ May 24, 2004 7:08 am 2M July 17, 2025 8:49am Hosp F/U August 04, 2025 10:02am medicare wellness August 18, 2025 8 :39am Hospital FollowUp/Covid September 23 11:13am Reason for Visit Admit Date Essential hypertension July 17 8:49am Hypokalemia July 17, 2025 8:49am Hypomagnesemia July 17, 2025 8:49am Major depression, recurrent, chronic Sep tember 2024 8:49am Morbid obesity due to excess calories Se ptember 2024 8:49am Chronic respiratory failure July 172024 8:49am Bilateral lower extremity edema Septembe r [...] 18, 2025 8:39am Encounter for subsequent [facility] wellness visit (AWV) in Medicare patient August 18, 2025 8:39am Morbid obesity due to excess calories Oc tober 2024 8:39am Asthma September 23, 2025 11:13am Chronic respiratory failure with hypoxia September 23, 2025 11:13am COPD (chronic obstructive pulmonary dise ase) September 23, 2025 11:13am COPD exacerbation September 23, 2025 11:13am COVID-19 September 23, 2025 11:13am Morbid obesity due to excess calories No vember 2024 11:13am Nausea & vomiting September 23, 2025 11:13am Allergies, Adverse Reactions, Alerts Allergen Type Severity Reaction Last Updated Verified Status vancomycin Allergy Unknown Unknown Reaction Septembe r 2024 5:46am Yes Active fentanyl Allergy Unknown Hallucinating July 072024 5:46am Yes Active DENIES METAL SENSITITIVITY Allergy Unknown Unknown Reaction March 14, 2024 7:49am No Active Social History Smoking Status Status Start Date End Date Date of Observa tion Never smoked tobacco (finding) July 24, 2025 10:36am Observation Status Observation Response Date of Response Legal Sex Female (finding) Sex Assigned At BirthFemaleSept1954 Family History Relationship Condition Age at Onset Recorded Date/T gladys father Cardiovascular disease Unknown GlaucomaUnknownDeceasedUnknownHeart diseaseUnknownHypertensionUnknownmother Congestive heart failureUnknownDeceasedUnknownHeart diseaseUnknownHypertension UnknownbrotherHypertensionUnknownsisterHypertensionUnknown Problems Active Problems Problem Diagnosis/Recorded Date Onset Date Status C omments Rheumatoid arthritis July 17, 2025 5:55am Unknown Active Bilateral lower extremity edemaSeptember 2024 5:55amUnknownActiveCOVID-19 September 23, 2025 6:34amUnknownActiveEncounter for subsequent annual wellness visit (AWV) in Medicare patientSeptember 2024 5:50amUnknownActiveChronic GERD without esophagitisSeptember 2024 5:49amUnknownActiveHeart failure with preserved ejection fractionSeptember 2024 5:48amUnknownActive Spondylosis of lumbosacral region without myelopathy or radiculopathySeptember 2024 5:53amUnknownActiveMajor depression, recurrent, chronicSeptember 2024 5:49amUnknownActiveChronic respiratory failure with hypoxiaSeptember 2024 5:54amUnknownActiveHistory of colon cancerFebruary 2022 8:51am UnknownActiveCandidiasisSeptember 2024 5:55amUnknownActiveMalignant neoplasm of rectosigmoid junctionSeptember 2024 5:48amUnknownActiveStage 3 chronic kidney diseaseFebruary 2022 6:55amUnknownActiveSecondary pulmonary hypertensionSeptember 2024 5:52amUnknownActiveHypertensive chronic kidney disease with stage 1 through stage 4 chronic kidney disease, or unspecified chronic kidney diseaseMay 2023 9:41amUnknownActiveDiarrheaSeptember 2024 9:35amUnknownActiveHyperuricemiaSeptember 2024 5:52amUnknownActive LeukocytosisSeptember 2024 5:54amUnknownActiveMixed hyperlipidemia July 17, 2025 5:49amUnknownActivePost-menopauseSeptember 2024 5:50amUnknownActiveOsteoarthritisSeptember 2024 5:47amUnknownActiveSevere persistent asthmaSeptember 2024 5:53amUnknownActiveRestless legs syndrome (RLS)July 17, 2025 5:50amUnknownActiveEssential hypertensionSeptember 2024 5:52amUnknownActiveMorbid obesity due to excess caloriesSeptember 2024 5:50amUnknownActiveIDA (iron deficiency anemia)July 17, 2025 5:49amUnknownActiveCOPD (chronic obstructive pulmonary disease)December 08, 2022 6:15lrTddzfvpWmzrowS4@3L continuousCKD stage 3a, GFR 45-59 ml/minSeptember 2024 5:48amUnknownActiveUrge incontinence of urineSeptember 2024 5:50amUnknownActiveCOPD exacerbationNovember 2024 11:48amUnknownActive Nausea & vomitingNovember 2024 11:47amUnknownActiveNauseaSeptember 2024 9:35amUnknownActiveVitamin D deficiencyMay 2023 9:51amUnknownActive Chronic sinusitis, unspecifiedSeptember 2024 5:51amUnknownActiveAsthma December 08, 2022 6:55amUnknownActiveSpinal stenosis, lumbar region without neurogenic claudicationSeptember 2024 5:52amUnknownActiveHypokalemiaMay 2023 9:42amUnknownActiveHypomagnesemiaMay 2023 9:42amUnknownActive Medications Medication Status Dose Units Route Directions Qty Days Refills S tart Date Stop Date End Date Reason(s) Instructions Adherence Magnesium Oxide 400 mg magnesium tablet Discontinued 400 MG PO Daily 90 1J2023 6:18amJune 2023 4:47pmFurosemide (Lasix) 20 mg tablet Dpsuzdjdokrh40GQHZMklji545Jvzn 2023 11:00pmJuly 2023 6:41amLosartan 50 mg flygilZkmcuzwhguhp96AYYUTfkza640Dpml 4th, 2024 11:00pmJun2023 3:49pmLosartan 50 mg vunokjFdrwopjcuqxy85QLMVWfyac mdkme064QhvlApril 10, 2024 3:49pm April 10, 2024 3:50pmLosartan 50 mg nhwbzePggimitwxleq25AANPPlfna mamdv7086Borg2023 3:50pmOctober 2023 12:09pmMagnesium Oxide 400 mg magnesium fvfdriPgmweh454SNNXScpny771Jnxa 10th, 2024 4:46pmComplies with drug therapy Furosemide (Lasix) 20 mg twenroEryqvj66SLHRPkunu724Bbpw 2023 6:40am Complies with drug therapyPotassium Chloride 20 mEq tablet extended release Nfbfhcglzcel40MCBSAPxlkd71Oyrqemfqo 2024 11:00pmOctwh[facility] 2024 5:28am Hypokalemia Hypokalemiatake with foodPotassium Chloride 20 mEq tablet extended releaseActive 98PVHREGlwwj074Lyfgwdz 3rd, 2025 5:27amHypokalemia Hypokalemiatake with foodComplies with drug therapyBupropion Hcl (Wellbutrin Xl) 150 mg tablet extended release 24 sbVcbgoj244QFPIFyknm voavaru146Oucrlrj 13th, 2025 9:43amChronic major depressive disorder, recurrent episode Major depressive disorder, recurrent, unspecifiedComplies with drug therapy Omeprazole 20 mg capsule,delayed release(DR/EC)Ywpajm13ALLXJzigd tzxxb3991 August 25, 2025 9:58amChronic gastroesophageal reflux disease without esophagitis Gastro-esophageal reflux disease without esophagitisComplies with drug therapy Pregabalin 75 mg ciqmsypMqdhog63NMXWWocer osxen00195Yizisvu 21st, 2025 8:19am Spondylosis of lumbosacral region without myelopathy or radiculopathy Spondylosis without myelopathy or radiculopathy, lumbosacral regionUnknown Montelukast (Singulair) 10 mg xhfuqaIclteelmtwmq08AEUQIrwlg at bedtimeOctober 2024 4:11amOctober 2024 4:11amSevere persistent asthma Severe persistent asthma, uncomplicatedMontelukast (Singulair) 10 mg tablet Kkvcpo54SDIBPzill at qcblppl986Oohxfga 2024 4:11amSevere persistent asthma Severe persistent asthma, uncomplicatedComplies with drug therapyNystatin 100,000 unit/gram xbyuqTmzgml4OXJLBJUMSVCKVFamfy daily as needed for qtyy087 September 15, 2025 12:00amCandidiasis Candidiasis, unspecifiedComplies with drug therapySpironolacton-Hydrochlorothiaz 0 yhejhkGtwgodbsicbb2XFPSWIvbyzHqsyntju 2016 12:00amFebruary 2022 7:04amHydrochlorothiazide 25 mg jinrtjGjpvwvwxeimo59WNSNYiheeXolzwdwj 2022 12:00amMay 2023 9:51jyAqudgqocnrd-Xnvxqlfqe-Vcseeqrk (Trelegy Ellipta) 200-62.5-25 mcg blister with tnouxiIhoviwpastzb5LIPYUDJPNTBDZVx DirectedFebruary 2022 12:00amMay 2023 9:40amPotassium 99 mg FwukfeCcsrtjmtkrry16ONLX Twice dailyFebruary 2022 12:00amMay 2023 9:41amMagnesium 200 mg Tablet Tvlgegldtpga836SFDJJoytyJcdcfhio 2022 12:00amMay 2023 9:34amAlbuterol Sulfate 90 mcg/actuation Hfa Aerosol HbxomnlXwofpxiyrsxc0TIHDMKBKAHSGZWEZMTA 4-6 HOURS as needed for Shortness Of Breath Or WheezingAugust 2016 11:00pmMay 2023 9:40amIpratropium [place] (Atrovent Hfa) 17 mcg/actuation Hfa Aerosol QcsnidtDjvwrexszctq8KEUOFXSHFGBDHFSqbjl dailyAugust 2016 11:00pmMarch 14, 2024 9:40amCyclobenzaprine 10 mg MfratsLrhqgmydxalr32XDDDUtusgJafpmu 31st, 2017 11:00pmMarch 14, 2024 9:40amClonazepam 0.5 mg TabletDiscontinued0.5MGPODaily July 06, 2017 11:pmMarch 14, 2024 9:40amLisinopril 40 mg TabletDiscontinued 0.5TABPOTwice dailygus2016 11:00pmFebruary 2022 7:04amTrazodone 50 mg VjdhnrVzwxosusixwz22DJMUTeyikfbIkxffk 31st, 2017 11:pmMarch 14, 2024 9:38amFamotidine (Pepcid) 40 mg TwxtfyHlyryfwaycku59OFSJCjsnmmdTmgwqg 2016 11:00pmFebruary 2022 7:02amAmlodipine (Norvasc) 2.5 mg TabletDiscontinued 2.5MGPOTwice dailygus2016 11:00pmMarch 14, 2024 9:40amParoxetine Hcl (Paxil) 20 mg XbeqzmYquatidzacrd18RMTGHowtcQtitzd 31st, 2017 11:00pmMarch 14, 2024 9:39amLoratadine 10 mg JkqwgfOtwzhbsbvzvv46UIAZHsjyjBplbea 2016 11:00pmMarch 14, 2024 9:41amOmeprazole 20 mg Tablet,Delayed Release (Dr/Ec) Kpjyxbhdhwgk85TTQIUlztaWvweir 31st, 2017 11:00pmMarch 14, 2024 9:41amLatanoprost 0.005 % goewlRcdler3MUJDEVGF-DVJVGioyq at bedtimeOct2023 11:00pm Complies with drug therapyAlbuterol Sulfate 2.5 mg /3 mL (0.083 %) solution for nebulizationActive2.0BLBQMXRUXFNE6-0 TIMES PER DAY as needed for shortness of breath or wheezingOct2023 11:00pmComplies with drug therapySodium Chloride 0.9 % solution for nebulizationActiveMLINHALATIONOct2023 11:60wsVllmbruAjougbdqhoy-Riufcfvsx-Ocfggdlg (Trelegy Ellipta) 200-62.5-25 mcg blister with elxkleUysihvzodgyk1LEQBQNCSQXGAFMlkpeWrj 8th, 2024 11:00pmSept2024 5:56amMagnesium Oxide 400 mg magnesium uhkskcZrrpnnnxkxdo879GGEMLthpa March 13, 2024 11:00pmJune 2023 6:18amSolifenacin 10 mg fcdxmzIdorzuhplpqe94 MGPODailyMarch 13, 2024 11:00pmSeptember 2024 6:01amCholecalciferol (Vitamin D3) 25 mcg (1,000 unit) vapbcvyZxthmd13RUMYHGbafaYoj 8th, 2024 11:00pm Complies with drug therapyFerrous Sulfate 325 mg (65 mg iron) fyvaxsRxlbsm609PN POEvery 48 hoursMarch 13, 2024 11:00pmComplies with drug therapyPramipexole 0.25 mg tabletActive0.25MGPODaily at bedtimeMay 2023 11:00pmUnknownPregabalin 75 mg nlqvunxHyjtwwmraufk51QLZYDiywz dailyMay 2023 11:00pmOctober 2024 8:20amOmeprazole 20 mg capsule,delayed release(DR/EC)Jbesnopisaps35ZRJFPztvg dailyMarch 13, 2024 11:00pmOctober 2024 9:58amMontelukast (Singulair) 10 mg mpxfbbFymkrxgkljxp68VIZSZdmftVgl 8th, 2024 11:00pmOctober 2024 4:11am Trazodone 100 mg bvygqaHheijkmpclgv289PJBQYfihp at bedtimeMay 2023 11:00pm July 17, 2025 6:00amParoxetine Hcl 30 mg wzyqniFeiwjhxyxrcw49ZCCVEtusbVms 8th, 2024 11:00pmSept2024 5:59amBaclofen 10 mg wunngaVlcxwy68TOIJ Three times dailyMarch 13, 2024 11:00pmComplies with drug therapyAlbuterol Sulfate 90 mcg/actuation HFA aerosol omleqzwAgbpzs5PJGXKZGEGDTBOELeldy 4 hours as needed for shortness of breath or wheezingMay 2023 11:00pmComplies with drug therapyParoxetine Hcl (Paxil) 40 mg tlgalaTmelhz87QMONPobnoFnmqzivgr 10th, 2025 11:00pmComplies with drug therapyBupropion Hcl (Wellbutrin Xl) 150 mg tablet extended release 24 gvZjobcstqfmfb823AVYRDjhnl morningJuly 16, 2025 11:00pmOctober 2024 9:43amTrospium 60 mg capsule,extended release 05awMzctqu35SIASZpjqcWeysafass 10th, 2025 11:00pmmust be taken on empty stomach at least 1 hour before a meal/food with water onlyUnknownGuaifenesin (Mucinex) 600 mg tablet extended release 56mxEpvdos905ZKCQHvtjd 12 hours as needed July 16, 2025 11:00pmComplies with drug therapy Kezuuvfwwo-Rcqqxiol-Eqevxyzdmz (Breztri Aerosphere) 160-9-4.8 mcg/actuation HFA aerosol agpfwgbVmpoqq5SKABQCRYRXUUITrsiv dailyJuly 16, 2025 11:00pm Complies with drug therapyEnsifentrine (Ohtuvayre) 3 mg/2.5 mL suspension for fxzvsurgcmhmFnnsvk7YEDPCZDAEOLUMtxqo dailyJuly 16, 2025 11:00pmComplies with drug therapyTrazodone 100 mg pbsnmrRnhkov232STROLkgyo at bedtime as needed July 16, 2025 11:00pmUnknownFluticasone Propionate (Flonase Allergy Relief) 50 mcg/actuation spray,qbalzklgjzYzbjxj6EIVKDUFYVMBXQFEUqhzhZmjnocamo 25th, 2025 11:00pmadminister into each nostrilComplies with drug therapy Ondansetron 4 mg tablet,inisruwnklukvhXgxzds5YABJOpfju 8 hours as needed for nausea and oayfwnoo940Ehsshlnx2024 12:00amNausea and vomiting Nausea with vomiting, unspecifiedComplies with drug therapyDoxycycline Hyclate 100 mg olfimtqZojdbt618DCQITvpal rwopi378UdhhhnwcSeptember 23, 2025 12:00amAcute exacerbation of chronic obstructive pulmonary disease Chronic obstructive pulmonary disease with (acute) exacerbationComplies with drug therapy Immunizations Immunization Event Date Not Given Reason Dose Number [employer] Lot Number Reason(s) Given Vaccine Information Statement (VIS) Detail Administration Location influenza, unspecified formulation August 09, 2017 Relevant Diagnostic Tests and/or Laboratory Data Laboratory Results Test Collection Date/Time Result Date/Time Result Interpretation Reference Range Result Comment Performing Site Magnesium Level July 09, 2025 3:56am July 09, 2025 3:56am 2.1 mg/dL 1.8-2.4Anion GapSept2024 3:56amSept2024 3:56am11.8 Magnesium LevelSept2024 3:41pmSept2024 3:41pm1.8 mg/dL 1.8-2.4Anion GapSept2024 3:41pmSept2024 3:41pm13.5Anion GapSeptember 2024 8:40amSeptember 2024 8:40am15.9Anion GapOctober 2024 12:53pmOctober 2024 12:53pm11.3SARS-CoV-2 Ag (CV2AG)September 14, 2025 11:40amNovember 2024 11:40amPOSITIVEAbnormal (applies to non- numeric results)NEGATIVEThis test has not been FDA cleared or approved, but has beenauthorized by the FDA under an Emergency Use Authorization(EUA) for use by authorized laboratories certified underIA that meet the requirements to perform moderate or highcomplexity testing. This test has been authorized only forthe detection of proteins from SARS-CoV-2, not for any otherviruses or pathogens. The emergency use of this test isauthorized for the duration of the declaration thatcircumstances exist justifying the authorization ofemergency use of in vitro diagnostic tests for detectionand/or diagnosis of Covid-19 under s ection 564(b)(1) of theAct, 21 U.S.C. 360bbb-3(b)(1), unless the declaration isterminated or authorization is revoked sooner.Bedside Influenza Type A Antigen September 14, 2025 11:40amNovember 2024 11:40amNegativeNegative for Flu A protein antigen. Infection due to Flu Acannot be ruled out. Flu A antigen in the sample may bebelow the detection limit of the test.Troponin I High Sensitivity September 14, 2025 11:45amNove2024 11:45am20.5 pg/mL4.0-51.3CUT-OFF POINTS HAVE BEEN ESTABLISHED BASED ON THE FOURTHUNIVERSAL DEFINITION OF MYOCARDIAL INFARCTION. THE UPPERREFERENCE LIMIT (URL) OF TROPONIN, DEFINED THE 99THPERCENTILE OF cTnI DISTRIBUTION IN A REFERENCE POPULATION,HAS BEEN CONFIRMED THE DECISION THRESHOLD FOR MIDIAGNOSIS.99TH PERCENTILE = 51.4 PG/MLNOTE: HIGH-SENSITIVITY TROPONIN ASSAY IS NOT INTENDED TO BEUSED IN ISOLATION BUT SHOULD BE INTERPRETED IN CONJUNCTIONWITH OTHER DIAGNOSTIC AND CLINICAL INFORMATION.Anion GapNov2024 11:45amNovember 2024 11:45am12.7Basophils # (Auto)September 14, 2025 11:45amNove2024 11:45am0.0 10 3/uL0.0-0.1BUN/Creatinine RatioSeptember 2024 3:56amSeptember 2024 3:56am19.2BUN/Creatinine RatioSeptember 2024 3:41pmSeptember 2024 3:41pm11.3BUN/Creatinine RatioSeptember 2024 8:40amSeptember 2024 8:40am5.2BUN/Creatinine RatioOctober 2024 12:53pmOctober 2024 12:53pm8.3Bedside Influenza Type B AntigenSeptember 14, 2025 11:40am September 14, 2025 11:40amNegativeNegative for Flu B protein antigen. Infection due to Flu Bcannot be ruled out. Flu B antigen in thesample may bebelow the detection limit of the test.Albumin/Globulin RatioNove2024 11:45am September 14, 2025 11:45am0.7Basophils (%) (Auto)September 14, 2025 11:45am September 14, 2025 11:45am0.6 %0.2-2.0Blood Urea NitrogenSeptember 2024 3:56amSeptember 2024 3:56am19.0 mg/dLAbove high normal7.0-18.0Blood Urea NitrogenSeptember 2024 3:41pmSept2024 3:41pm15.0 mg/dL7.0-18.0 Blood Urea NitrogenSeptember 2024 8:40amSeptember 2024 8:40am6.0 mg/dLBelow low normal7.0-18.0Blood Urea NitrogenOctober 2024 12:53pm September 03, 2025 12:53pm9.0 mg/dL7.0-18.0AlbuminNovember 2024 11:45am September 14, 2025 11:45am2.9 g/dLBelow low normal3.4-5.0Eosinophils # (Auto) September 14, 2025 11:45amNovember 2024 11:45am0.1 10 3/uL0.0-0.7Calcium LevelSeptember 2024 3:56amSeptember 2024 3:56am8.7 mg/dL8.5-10.1 Calcium LevelSeptember 2024 3:41pmSept2024 3:41pm8.7 mg/dL 8.5-10.1Calcium LevelSeptember 2024 8:40amSeptember 2024 8:40am8.6 mg/dL8.5-10.1Calcium LevelOctober 2024 12:53pmOctober 2024 12:53pm 8.8 mg/dL8.5-10.1Alkaline PhosphataseNovember 2024 11:45amNovember 2024 11:45am92 U/V44-144Lkavpgikvwk (%) (Auto)September 14, 2025 11:45amNovember 2024 11:45am1.4 %0.9-7.0Chloride LevelSeptember 2024 3:56amSept2024 3:53zo929 mmol/H55-185Mnylhrsk LevelSeptember 2024 3:41pm July 18, 2025 3:63ew377 mmol/F35-982Sikzhncw LevelSeptember 2024 8:40amSeptember 2024 8:08gm083 mmol/Z77-313Smlsrzaz LevelOctober 2024 12:53pmOctober 2024 12:73ai139 mmol/B36-251Xpbphup Aminotransferase (ALT/SGPT)September 14, 2025 11:45amNovember 2024 11:45am21 U/L14-59 HematocritNovember 2024 11:45amNovember 2024 11:45am40.3 %36.0-48.0 Carbon Dioxide LevelSeptember 2024 3:56amSeptember 2024 3:56am29.3 mmol/L21.0-32.0Carbon Dioxide LevelSeptember 2024 3:41pmSeptember 2024 3:41pm26.8 mmol/L21.0-32.0Carbon Dioxide LevelSeptember 2024 8:40am August 04, 2025 8:40am25.4 mmol/L21.0-32.0Carbon Dioxide LevelOctober 2024 12:53pmOctober 2024 12:53pm26.5 mmol/L21.0-32.0Aspartate Amino Transf (AST/SGOT)September 14, 2025 11:45amNovember 2024 11:45am25 U/L15-37 HemoglobinNovember 2024 11:45amNovember 2024 11:45am13.0 g/dL12.0-16.0 CreatinineSeptember 2024 3:56amSeptember 2024 3:56am0.99 mg/dL 0.55-1.02CreatinineSeptember 2024 3:41pmSeptember 2024 3:41pm1.33 mg/dLAbove high normal0.55-1.02CreatinineSeptember 2024 8:40amSeptember 2024 8:40am1.15 mg/dLAbove high normal0.55-1.02CreatinineOctober 2024 12:53pmOctober 2024 12:53pm1.08 mg/dLAbove high normal0.55-1.02 BUN/Creatinine RatioNove2024 11:45amNovember 2024 11:45am7.0 Immature Granulocyte # (Auto)September 14, 2025 11:45amNovember 2024 11:45am0.06 10 3/uLAbove high normal0.00-0.03Estimated GFR () July 09, 2025 3:56amSeptember 2024 3:56am>60>=60 mL/min/1.73m 2 Estimated GFR ()July 18, 2025 3:41pmSeptember 2024 3:98mm46Azxjk low normal>=60 mL/min/1.73m 2Estimated GFR () August 04, 2025 8:40amSeptember 2024 8:47lu67Qeqqk low normal>=60 mL/min/1.73m 2Estimated GFR ()September 03, 2025 12:53pmOctober 2024 12:53pm>60>=60 mL/min/1.73m 2Blood Urea NitrogenNov2024 11:45amNovember 2024 11:45am8.0 mg/dL7.0-18.0Immature Granulocyte % (Auto) September 14, 2025 11:45amNovember 2024 11:45am0.9 %Above high normal 0.0-0.5Estimated GFR (Non- AmericanSept2024 3:56amSeptember 2024 3:57iv59Zmkzj low normal>=60 mL/min/1.73m 2Estimated GFR (Non- AmericanSeptember 2024 3:41pmSeptember 2024 3:99qa13Vacwz low normal >=60 mL/min/1.73m 2Estimated GFR (Non- AmericanSeptember 2024 8:40amSeptember 2024 8:15sg67Efmwe low normal>=60 mL/min/1.73m 2Estimated GFR (Non- AmericanOctober 2024 12:53pmOctober 2024 12:53pm50 Below low normal>=60 mL/min/1.73m 2Calcium LevelNovember 2024 11:45am September 14, 2025 11:45am8.1 mg/dLBelow low normal8.5-10.1Lymphocytes # (Auto) September 14, 2025 11:45amNovember 2024 11:45am1.8 10 3/uL1.2-3.8Glucose LevelSeptember 2024 3:56amSeptember 2024 3:61ju867 mg/dLAbove high jymitj61-001Wcpyggy LevelSeptember 2024 3:41pmSeptember 2024 3:41pm 164 mg/dLAbove high araxnw84-664Vgkrfkm LevelSeptember 2024 8:40am August 04, 2025 8:56ep764 mg/dLAbove high apuvry53-691Ghcjlbh LevelOctober 2024 12:53pmOctober 2024 12:53pm96 mg/gA51-048Wqhjnkzb LevelNov2024 11:45amNovember 2024 11:19dq833 mmol/LAbove high acaknp61-185 Lymphocytes (%) (Auto)September 14, 2025 11:45amNovember 2024 11:45am27.1 % 20.5-60.0Potassium LevelSeptember 2024 3:56amSeptember 2024 3:56am4.1 mmol/L3.5-5.1Potassium LevelSeptember 2024 3:41pmSeptember 2024 3:41pm3.3 mmol/LBelow low normal3.5-5.1Potassium LevelSeptember 2024 8:40amSeptember 2024 8:40am3.3 mmol/LBelow low normal3.5-5.1Potassium LevelOctober 2024 12:53pmOctober 2024 12:53pm3.8 mmol/L3.5-5.1Carbon Dioxide LevelNovember 2024 11:45amNovember 2024 11:45am25.8 mmol/L 21.0-32.0Mean Corpuscular HemoglobinNovember 2024 11:45amNovember 2024 11:45am29.7 pg26.7-34.0Sodium LevelSeptember 2024 3:56amSeptember 2024 3:12uj366 mmol/V829-843Wtltzd LevelSeptember 2024 3:41pmSeptember 2024 3:87we103 mmol/R012-677Dlccpm LevelSeptember 2024 8:40amSeptember 2024 8:17xf890 mmol/H459-004Suqsgc LevelOctober 2024 12:53pmOctober 2024 12:01so147 mmol/I250-064MyihvhojcxBorhtpbu 2024 11:45amNovember 2024 11:45am1.14 mg/dLAbove high normal0.55-1.02Mean Corpuscular Hemoglobin ConcentNovember 2024 11:45amNovember 2024 11:45am32.3 g/dL29.9-35.2 Estimated GFR ()September 14, 2025 11:45amNovember 2024 11:58qa47Ghccn low normal>=60 mL/min/1.73m 2Mean Corpuscular VolumeNovember 2024 11:45amNovember 2024 11:45am92.0 fL81.0-99.0Estimated GFR (Non- AmericanNov2024 11:45amNovember 2024 11:20cu38Rxotg low normal >=60 mL/min/1.73m 2Monocytes # (Auto)September 14, 2025 11:45amNovember 2024 11:45am0.6 10 3/uL0.3-0.8GlobulinNov2024 11:45amNovember 2024 11:45am4.2 g/dLMonocytes (%) (Auto)September 14, 2025 11:45amNovember 2024 11:45am8.6 %1.7-12.0Glucose LevelNovember 2024 11:45amNovember 2024 11:48wq239 mg/dLAbove high jyrmvw70-677Jufh Platelet VolumeNov2024 11:45amNovember 2024 11:45am9.1 fLBelow low normal9.5-13.5Potassium LevelNov2024 11:45amNovember 2024 11:45am3.5 mmol/L3.5-5.1 Neutrophils # (Auto)September 14, 2025 11:45amNovember 2024 11:45am4.1 10 3/uL1.4-6.5Sodium LevelNov2024 11:45amNovember 2024 11:32cw731 mmol/B451-515Zpsxjxlmzcf (%) (Auto)September 14, 2025 11:45amNovember 2024 11:45am61.4 %43.0-75.0Total BilirubinNov2024 11:45amNovember 2024 11:45am0.1 mg/dLBelow low normal0.2-1.0Platelet CountNov2024 11:45amNovember 2024 11:68iw492 10 3/mW277-122Zunhx ProteinNov2024 11:45amNovember 2024 11:45am7.1 g/dL6.4-8.2Red Blood CountNovember 2024 11:45amNovember 2024 11:45am4.38 10 6/uL4.20-5.40Red Cell Distribution WidthSeptember 14, 2025 11:45amNovember 2024 11:45am13.6 % 11.0-15.0Corrected White Blood CountNov2024 11:45amNovember 2024 11:45am6.7 10 3/uL4.0-11.0 Vital Signs Vital Reading Result Reference Range Collection Date/Time Height 64 [in_i] July 17, 2025 8:74thVtkkrr103.25 kgSept2024 8:08amBody Tmqmjgvsgau11.1 [degF]97.6-99.0pt2024 8:08amHeart Rate74 /min 60-100July 17, 2025 8:08amRespiratory rate24 /cwg01-70Nwetmnxdq 11th, 2025 8:08amOxygen saturation by Pulse zmivnhud05 %95-100pt2024 8:08amBP Obipcndx677 mm[Hg]100-140Sept2024 8:08amBP Ycrzydcdu98 mm[Hg]60-100Sept2024 8:08amBMI (Body Mass Index)40.1 kg/h3Dbwwtedmg2024 8:08amInhaled oxygen flow rate3 L/minSept[facility] 2024 8:08am Eeqpzt34 [in_i]August 04, 2025 9:71ofUzohcv690.87 kgSept2024 9:11amBody Horhmgjrios04.8 [degF]97.6-99.0pt2024 9:11amHeart Rate 93 /vsd13-749OuwryvdaeAugust 04, 2025 9:11amRespiratory rate18 /pxf15-40SytjyfkzuAugust 04, 2025 9:11amOxygen saturation by Pulse %95-100Sept2024 9:11amBP Rljhmkmu892 mm[Hg]100-140Sept2024 9:11amBP Kmxtsdsat98 mm[Hg]60-100Sept2024 9:11amBMI (Body Mass Index)39.3 kg/b6Vvfjwgvzj 2024 9:11amInhaled oxygen flow rate3 L/minSepthealthsouth [facility] 2024 9:11am Upvyce30 [in_i]August 18, 2025 7:65hkAbsgfg067.38 [facility] 2024 7:50am Body Gvlgfmxwybm21.1 [degF]97.6-99.0[facility] 2024 7:50amHeart Rate82 /min 60-100[facility] 2024 7:50amRespiratory rate20 /zhm65-83Migybgf 2024 7:50amOxygen saturation by Pulse rfbieyja88 %95-100[facility] 2024 7:50amBP Kpwltalg112 mm[Hg]100-140[facility] 2024 7:50amBP Zpanqijpv79 mm[Hg]60-100 August 18, 2025 7:50amBMI (Body Mass Index)39.4 kg/l2Ujqupit 2024 7:50amInhaled oxygen flow rate3 L/minM[facility] 2024 7:79amHbgtkv88 [in_i] September 23, 2025 11:16alWvtyvf349.04 [facility]Health[facility] 2024 11:23amBody Shevsjerrqf48.2 [degF]97.6-99.0[facility] 2024 11:23amHeart Rate71 /min 60-100[facility] 2024 11:23amRespiratory rate14 /gcq19-93Ngpbnbfj 2024 11:23amOxygen saturation by Pulse lscknloh75 %95-100[facility] 2024 11:23am BP Pspcvlii748 mm[Hg]100-140[facility] 2024 11:23amBP Kjapsqgcx37 mm[Hg] 60-100[facility] 2024 11:23amBMI (Body Mass Index)40.5 kg/c2Ngfpnhqm 2024 11:23am Advance Directives Advance Directive Response Recorded Date/ Time Advance Directives Yes July 9:36am Insurance Providers Guarantor Diana Champion Address [address] [facility] [address]Drdlrxe Info.Home Phone: Coverage Status Update:2025 Payer Group Member ID Coverage Type Subscriber Relationship to Subscriber Effective Date Expiration Date Medicaid [id number] A Yates Id: [id number] [address] [place] [address] Home Phone: Email: [email or web address] Medical Centeredicare [id number] A Champion Id: [id number] [address] [place] [address] Home Phone: Email: [email or web address] PFFS [id number] A Champion Id: [id number] [address] [place] [address] Home Phone: Email: [email or web address] General HospitalfBUNC [facility] [id number] A Champion Id: [id number] [address] [place] [address] Home Phone: Email: [email or web address] Id: [id number] A Champion Id: [id number] [address] [place] [address] Home Phone: Email: [email or web address]/HFA/FAP Active 100% thru 23 [facility] [address] Work Phone: [phone] [id number] A Champion Id: [id number] [address] [place] [address] Home Phone: Email: [email or web address] 2022 Encounters Encounter Location(s) Arrival/Admit Date Discharge/Departure Date Discharge/Departure Disposition Provider(s) Admitted Inpatient -3 April 26, 2004 7:04am Yecenia DESOUZAitted Inpatient-2003 7:08Ghada Carson-patient / Ewa-hikfx-Bbzsh [employer] 2024 4:56amSEDUARDO Noeeparted Physician/Provider Office Visit-[facility] 2024 8:49amSeptember 2024 9:51am Discharged to home care or self care (routine discharge)KELI Sexton Non-patient / Myu-vscnn-Kzbio [employer] 2024 4:41pm FAMILIA SextonCDeparted Physician/Provider Office Visit-[facility] 2024 10:02amSeptember 2024 10:41amDischarged to home care or self care (routine discharge)TED Sextoneparted Physician/Provider Office Visit-[facility] 2024 8:39amOctober 2024 9:23amDischarged to home care or self care (routine discharge)Li Sexton-patient / Dyi-imneq-Meana [employer]October 2024 1:53pmLi Sexton-patient / Yje-zmxwn-Jmutv [employer]November 2024 11:45amFAMILIA SextonCDeparted Physician/Provider Office Visit-[facility] 2024 11:13amNovember 2024 11:52amDischarged to home care or self care (routine discharge)KELI Sexton Recent Diagnosis Onset Date Admit Date Essential hypertension Unknown July 17, 2025 8:49am Hypokalemia Unknown July 17, 2025 8:49am Hypomagnesemia Unknown July 17, 2025 8:49am Major depression, recurrent, chronic Unknown July 17, 2025 8:49am Morbid obesity due to excess calories Unknown July 17, 2025 8:49am Chronic respiratory failure Unknown Jul 8:49am Bilateral lower extremity edema Unknown August 04, 2025 10:02am Chronic GERD without esophagitis Unknown August 04, 2025 10:02am Chronic respiratory failure with hypoxia Unknown August 04, 2025 10:02am COPD (chronic obstructive pulmonary disease) Unk nown August 04, 2025 10:02am Diarrhea Unknown August 04, 2025 10:02am Morbid obesity due to excess calories Unknown August 04, 2025 10:02am Nausea Unknown August 04, 2025 10:02am Stage 3 chronic kidney disease Unknown S eptember 2024 10:02am Chronic respiratory failure with hypoxia Unknown August 18, 2025 8:39am Encounter for subsequent [facility] wellness visit (AWV) in Medicare patient Unknown August 18, 2025 8:3 9am Morbid obesity due to excess calories Unknown August 18, 2025 8:39am Asthma Unknown September 23, 025 11:13am Chronic respiratory failure with hypoxia Unknown September 23, 2025 11:13am COPD (chronic obstructive pulmonary disease) Unk nown September 23, 2025 11:13am COPD exacerbation Unknown September 23, 2025 11:13am COVID-19 Unknown September 23, 2 025 11:13am Morbid obesity due to excess calories Unknown September 23, 2025 11:13am Nausea & vomiting Unknown September 23, 2025 11:13am Assessments Diagnosis Onset Date Resolution Status Admit Date Essential hypertension acuteSept2024 8:49amHypokalemiaacuteSept2024 8:49am HypomagnesemiaacuteSept2024 8:49amMajor depression, recurrent, chronicacuteSept2024 8:49amMorbid obesity due to excess calories acuteSept2024 8:49amChronic respiratory failuredeletedSept2024 8:49amBilateral lower extremity edemaacuteSept2024 10:02amChronic GERD without esophagitisacuteSept2024 10:02amChronic respiratory failure with hypoxiaacuteSept2024 10:02amCOPD (chronic obstructive pulmonary disease)acuteSeptember 2024 10:02amDiarrheaacute August 04, 2025 10:02amMorbid obesity due to excess caloriesacuteSeptember 2024 10:02amNauseaacuteSeptember 2024 10:02amStage 3 chronic kidney diseaseacuteSeptember 2024 10:02amChronic respiratory failure with hypoxia acuteOctober 2024 8:39amEncounter for subsequent annual wellness visit (AWV) in Medicare patientacuteOctober 2024 8:39amMorbid obesity due to excess caloriesacuteOctober 2024 8:39amAsthmaacuteNovember 2024 11:13amChronic respiratory failure with hypoxiaacuteNovember 2024 11:13am COPD (chronic obstructive pulmonary disease)acuteNovember 2024 11:13amCOPD exacerbationacuteNovember 2024 11:13amCOVID-19acuteNovember 2024 11:13amMorbid obesity due to excess caloriesacuteNovhealthsouth [facility] 2024 11:13am Nausea & vomitingacuteNovhealthsouth [facility] 2024 11:13am Plan of Treatment Author Kaylene [facility] 2024 8:37amcurrent meds: paxil at 40mg, wellbutrin xl at 150mg at this point we will continue another 6 weeks to see if she just builds up her strength if she feels better if not we will consider increase in wellbutrin dose Please check blood pressure daily and record DASH diet Limit caffeine Taken off meds about a year ago Contact office if chest pain, pressures, dizziness, shortness of breath, swelling in the legs Recommend slow position changes if you develop dizziness with position changes current meds: no current meds Discussed with patient their BMI (actual vs recommended). We have discussed lifestyle modifications: attempts to perform phsyical activity as chronic conditions allow, monitor dietary intake: increasing protein/fruits/veggies and lowering carb intake (unless contraindicated). Limit sodas, juices, sugary drinks, as well as alcohol consumption. nebs, meds, oxygen recent hospitalization for double pneumonia, is feeling better needs new referral to pulmonology check labs check labs Author Kaylene [facility] 2024 9:48amcontinue oxygen, inhalers as well. has appt with [facility] pulmonology in 12/25 continue with inhalers Recommendations: freq small meals, nothing to eat or drink at least 2 hours prior to bed, limit caffeine, alcohol, as well as spicy foods. Meds to limit or avoid if possible: NSAIDS Elevate the HOB if possible on PPI therapy stable today Discussed with patient their BMI (actual vs recommended). We have discussed lifestyle modifications: attempts to perform phsyical activity as chronic conditions allow, monitor dietary intake: increasing protein/fruits/veggies and lowering carb intake (unless contraindicated). Limit sodas, juices, sugary drinks, as well as alcohol consumption. sent in nausea as well at this point we will order health trax for diarrhea panel fluids, rest will check labs, had hospitalization for similar sxs about a month ago, that did resolve, but started again last week will check for UTI as well as elyte abnormals Author Kaylene [facility] 2024 8:22amReviewed Ht/Wt/BMI Recommend eye exams yearly Recommend dental exam: twice a year Balance work/leisure activities exercise is recommended most days of the week (appropriate as chronic conditions allow) follow up yearly and prn does have a DNR CC-A order in act Discussed with patient their BMI (actual vs recommended). We have discussed lifestyle modifications: attempts to perform phsyical activity as chronic conditions allow, monitor dietary intake: increasing protein/fruits/veggies and lowering carb intake (unless contraindicated). Limit sodas, juices, sugary drinks, as well as alcohol consumption. wears oxygen, has appt w pulmonary at [facility] 10/23/25 stable at this time has had covid, flu and pneumonia vaccine Author [facility]lene [facility] 2024 6:37amDiscussed with patient their BMI (actual vs recommended). We have discussed lifestyle modifications: attempts to perform phsyical activity as chronic conditions allow, monitor dietary intake: increasing protein/fruits/veggies and lowering carb intake (unless contraindicated). Limit sodas, juices, sugary drinks, as well as alcohol consumption. wears oxygen, has appt w pulmonary at [facility] 10/23/25 stable at this time has had covid, flu and pneumonia vaccine current meds: albuterol, breztri, Ohtuvayre, mucinex, singulair recent ER visit dx with COVID on 09/15/25 reviewed notes from ER visit, EKG, and labs current meds: albuterol, breztri, Ohtuvayre, mucinex, singulair Future Tests Future scheduled test information is unavailable Pending Tests Test Name Ordered Date Scheduled Date Comprehensive Metabolic Panel August 04 9:34am Future Visits Future appointment information is unavailable Future Procedures Procedure Name Ordered Date Scheduled Date Basic Metabolic Panel July 17, 2025 8:33a m Dipstick and MicroscopicSeptember 2024 9:34amUrine CultureSeptember 2024 9:34amMagnesiumSeptember 2024 9:34amBasic Metabolic PanelOctober 2024 8:22amBasic Metabolic PanelNovember 2024 11:49am Future Medications Future medication information is unavailable Patient Instructions Patient instructions are unavailable
--- OUTSIDE RECORDS SUMMARY | 2025-09-26 13:01 | XMS_ITS | Clinical Summary ---
Author Organization BrandProject tem Address [id number] [place] [address] Care Team Providers Care Sea Foam Kiss Maker Name Role Phone Timoteo Rainey MD Primary [...] 325 mg by mouth daily with breakfast.Active xcmdgxbt-inbc-TT-calcium &mins (THERAGRAN-M) 9 mg iron-400 mcg tablet [...] (03/26/2019): Added automatically from request for surgery [id number] Arthritis of right knee10/17/2018Lumbar knplagjyael13/17/2018 Overview (05/22/2018): Added automatically from request for surgery [id number] Disorder of bwergz3901/15/2018 Overview (01/15/2018): Added automatically from request for surgery [id number] Immunizations ImmunizationAdministration DatesNext DuePneumococcal Flaxkwvfchuhjf99/14/2018 Family History Medical HistoryRelationNameCommentsNo Known ProblemsBrother 1No [...] glass of wine twice per monthChildcareAnswerDate RecordedChildcare Adniwpp7904/04/2019EmploymentAnswerDate FeorlbjtUkphrfwqeaIjqkuzn27/30/2019Purpose - LifeAnswerDate RecordedPurpose and direction in oivvVqfyszg01/11/2021 CommentsNoSex and Gender InformationValueDate RecordedSex Assigned at BirthNot on fileLegal MmgNcrrbb04/06/2015 11:34 AM EDTGender IdentityNot on fileSexual OrientationNot on file Last Filed Vital Signs Vital SignReadingTime TakenCommentsBlood Fclvnywr082/5509 8:23 AM EDT Zthno265407/16/2019 8:23 AM XGVGpjcebtjore76.6 ??C (97.8 ??F)05/27/2019 8:52 AM EDTRespiratory Phhy9418 9:20 AM EDTOxygen Jwuvgrrygf37%05/27/2019 9:23 AM EDTInhaled Oxygen Concentration--Izjwcg041.2 kg (223 lb)07/16/2019 8:23 AM PQDYbsmfv993.6 cm (5' 4 )05/23/2019 8:08 AM EDTBody Mass Index38.2807 8:08 AM EDT Plan of Treatment Health MaintenanceDue DateLast DoneCommentsDepression Wbjbjysyg58/28/1968Tobacco Ssjquimrd85/28/1968Adult BMI Ogkxhewcz76/28/1974DTaP,Tdap and Td Vaccines (1 - Tdap)1975Zoster (Shingles) Vaccine (1 of 2)2006Fall Risk Screening 2021Influenza Ieqiykk3707/07/2025RSV ( or age 60+ yrs) (1 - 1-dose 75+ series)2031 Medical Devices ImplantedTypeAreaManufacturerDevice IdentifierShelf Expiration DateModel / Serial / LotCmnt Bn Hvisc Plc Rpl [id number] - Sna - [id number] Implanted:Qty: 1 on 10/18/2018 [facility] KneeHERAEUS MEDICAL [id number] / NA / [id number] Bn Hvisc Plc Rpl [id number] - Sna - [id number] Implanted:Qty: 2 on 10/18/2018 by Jim Herring Jr[facility]Right: KneeHERAEUS MEDICAL [id number] / NA / [id number] ImplantOrthopedic ImplantDescription:lumbar fusionOrthopedic ImplantOrthopedic ImplantDescription:left hip Cmpt Ptlr 32mm Nxgn Alply Rpl [id number] + [id number] + [id number] - Sna - [id number] Implanted:Qty: 1 on 10/18/2018 by Jim Herring Jr., DO at [facility] ImplantRight: KneeZimmer Usbhhw0207/06/2026 [id number] / NA / [id number] Artc 3-4 E-F 12mm Kn Fx Rpl [id number] - Sna - [id number] Implanted:Qty: 1 on 10/18/2018 by Jim Herring Jr., DO at [facility] ImplantRight: KneeZimmer Ymgeuy8510/05/202292-9802-840-12 / NA / [id number] Fem E Kn Rt Lpsflx Gndr Rpl [id number] - Sna - [id number] Implanted:Qty: 1 on 10/18/2018 by Jim Herring Jr., DO at [facility] ImplantRight: KneeZimmer Lptayq7511/05/2027 [id number] / NA / [id number] Tib [id number] Nxgn Kn Cmnt Rpl [id number] + [id number] - Sna - [id number] Implanted:Qty: 1 on 10/18/2018 [facility]ring Jr[facility]Right: KneeZimmer [id number] / NA / [id number]mc IdentifierShelf Expiration DateModel / Serial / LotScr Bn Chente 35mm 6.5mm Hip St Rpl [id number] + [id number] + 32 - Sna - [id number] Explanted:Qty: 2 on [facility]/18/2018 [facility]Right: KneeZimmer Ekobtb65/31/047674-6478-345-33 / NA / [id number] Gd 48mm Qd-Spr Hex Hd Mis - Sna - [id number] Explanted:Qty: 2 on 10/18/2018 by Jim Herring Jr., DO [facility]wRight: KneeZimmer Hhulme34/30/719313-2238-365-67 / NA / [id number] Insurance Advance Directives * Full Code (Latest Code Status on File) Date ActivatedDate LmebhsskbmkQeppndeo27/13/2018 1:03 PM10/19/2018 2:33 PM Care Teams Team MemberRelationshipSpecialtyStart DateEnd Date Amburn, Timoteo R, MD PCP - [facility] Medicine12/26/17
--- OUTSIDE RECORDS SUMMARY | 2025-09-26 13:01 | XMS_ITS | Patient Health Record ---
Author Organization The [facility] in [place] Address [address] [place] [address] Care Team Providers Care Management Engineer Name Role Phone Brianceleste CLEOKaylene Primary Care Provider Unavail able Bo Mcclain Unavailable [phone] Kwabena Zepeda Unavailable [phone] Allergies No Known Allergies Results Component Value Reference Range Notes CT chest wo con Reviewed date:11/13/2024 02:55:20 PM Interpretation: Performing Lab: Notes/Report: Source Facility: [place] [address] CT Scan Report Signed Patient: DIANA CHAMPION MR#: [id number] : 1955 Acct:[id number] Age/Sex: 69 / F ADM Date: 11/12/24 Loc: MS 231-[address]: Shaikh Lev Velasquez Ordering Physician: Bo Mcclain D.O. Date of Service: 11/13/24 Procedure(s): CT chest wo con Accession Number(s): [id number] cc: AIDA BLANC [place] [address] Patient Name: DIANA CHAMPION MRN: [id number] date: 1955 Sex: F Assigned Patient Location: MS Current Patient Location: [place] Accession/Order Number: [id number] Exam Date: 11/13/2024 13:54 Report Date: 11/13/2024 [...] Signed By: 11/13/24 1422 DD/ 1419 TD/TT: Venetian Blind Washer: BNP Reviewed date:01/09/2025 09:12:32 PM Interpretation: Performing Lab: Notes/Report: [facility] , NT Pro B Type Natriuretic Pept 123.0 <=900.0 pg /mL Performing Lab:see noteML - [facility] LBPROF CHEM 8 (BAS METB) Reviewed date:01/09/2025 09:12:32 PM Interpretation: Performing Lab: Notes/Report: [facility] ,Vvyhxh939395-298 mmol/LPotassium5.03.5-5.1 mmol/RHsbtcgza89230-477 mmol/LCarbon Ektoxbd62.121.0-32.0 mmol/LAnion Gap8.0Ilexkly12614-361 mg/dLBlood Urea Nitrogen 35.07.0-18.0 mg/dLCreatinine1.320.55-1.02 mg/dLEstimated GFR ( Vbpmogk09 >=60 mL/min/1.73m 2Estimated GFR (Non- Ame40>=60 mL/min/1.73m 2BUN Creatinine Ratio26.8Xpclooa3.08.5-10.1 mg/dLPerforming Lab:see noteML - [facility] LBManual Differential Reviewed date:01/09/2025 09:12:32 PM Interpretation: Performing Lab: Notes/Report: [facility] ,Segmented Neutrophils % Tcduow20.043.0-75.0Band Neutrophils %1.00-5 % Lymphocytes Percent Manual9.020.5-60.0 %Monocytes Percent Manual1.01.7-12.0 % Eosinophils Percent Manual0.00.9-7.0 %Basophils Percent Manual0.00.2-2.0 % Metamyelocytes %1.0Segmented Neut Absolute Ckenww73.351.4-6.5 10 3/uLBand Neutrophils Absolute0.10.0-0.3 10 3/uLLymphocytes Absolute Manual1.161.20-3.80 10 3/uLMonocytes Absolute Manual0.120.30-0.80 10 3/uLEosinophils Absolute Manual 0.000.00-0.70 10 3/uLBasophils Abs Manual0.000.00-0.10 10 3/uLMetamyelocytes Absolute Manual0.12Performing Lab:see noteML - [facility] LBWhite Blood Cells Reviewed date:01/14/2025 04:11:49 PM Interpretation: Performing Lab: Notes/Report: [facility] ,White Blood CellsSee Below For Report White Blood Cells White Blood CellsNone seen White Blood Cells Performing Lab:see noteLC - [facility] LBEpithelial Cells Reviewed date:01/14/2025 04:11:49 PM Interpretation: Performing Lab: Notes/Report: [facility] ,Epithelial CellsSee Below For Report Epithelial Cells Few Performing Lab:see noteLC - [facility] LBResult 1 Reviewed date:01/14/2025 04:11:49 PM Interpretation: Performing Lab: Notes/Report: [facility] ,Result 1See Below For Report Result 1 No organisms seen Performing Lab:see note - [facility] LBResult 2 Reviewed date:01/14/2025 04:11:49 PM Interpretation: Performing Lab: Notes/Report: [facility] ,Result 2See Below For Report Result 2 VISUAL C DEVELOPER Performing Lab:see note - [facility] LBResult 3 Reviewed date:01/14/2025 04:11:49 PM Interpretation: Performing Lab: Notes/Report: [facility] ,Result 3See Below For Report Result 3 VISUAL C DEVELOPER Performing Lab:see note - [facility] LBResult 4 Reviewed date:01/14/2025 04:11:49 PM Interpretation: Performing Lab: Notes/Report: [facility] ,Result 4See Below For Report Result 4 VISUAL C DEVELOPER Performing Lab:see note - [facility] LBGram Stain Evaluation Reviewed date:01/14/2025 04:11:49 PM Interpretation: Performing Lab: Notes/Report: [facility] ,Gram Stain EvaluationSee Below For Report Gram Stain Evaluation This specimen is of good quality and is acceptable for routine Gram Stain Evaluationbacterial culture. Gram Stain Evaluation This specimen is of good quality and is acceptable for routine Performing Lab:[facility] LBLower Respiratory Culture Reviewed date:01/14/2025 04:11:49 PM [...] Ceftolozane/Tazobactam S F Lower Respiratory CulturePerformed at: [facility] Lower Respiratory Culture WILL FOLLOW O:GNR Isolated O:PSMS Isolated Organism: 8.2 Antibiotic Interpretation CUCO Status Cefepime Cefepime S F Ceftazidime Ceftazidime S F Ciprofloxacin Ciprofloxacin S F Levofloxacin Levofloxacin S F Meropenem Meropenem S F Tobramycin Tobramycin S F Piperacillin/Tazobactam Piperacillin/Tazobactam S F Ceftazidime/Avibactam Ceftazidime/Avibactam S F Ceftolozane/Tazobactam Ceftolozane/Tazobactam S F Lower Respiratory [address] [place] [address] [id number] Lower Respiratory Culture WILL FOLLOW O:GNR Isolated O:PSMS Isolated Organism: 8.2 Antibiotic Interpretation CUCO Status Cefepime Cefepime S F Ceftazidime Ceftazidime S F Ciprofloxacin Ciprofloxacin S F Levofloxacin Levofloxacin S F Meropenem Meropenem S F Tobramycin Tobramycin S F Piperacillin/Tazobactam Piperacillin/Tazobactam S F Ceftazidime/Avibactam Ceftazidime/Avibactam S F Ceftolozane/Tazobactam Ceftolozane/Tazobactam S F Lower Respiratory CultureLab Director: Raphael Marrero PhD, Phone: [phone] Lower Respiratory Culture WILL FOLLOW O:GNR Isolated [...] LC - [facility] LB SEE REPORT - Men'S Basketball Coach Id information not found for OBX-specific cattle producers legend CBC AUTO DIFF Reviewed date:01/12/2025 09:41:19 AM Interpretation: Performing Lab: Notes/Report: [facility] ,White Blood Count10.74.0-11.0 10 3/uLRed Blood Count4.064.20-5.40 10 6/uL Vmvsicrhul36.212.0-16.0 g/gWCvmsflfhyh14.936.0-48.0 %Mean Corpuscular Vtmcbo19.3 81.0-99.0 fLMean Corpuscular Xhmdgpuesb50.026.7-34.0 pgMean Corpuscular HGB Conc 32.229.9-35.2 g/dLRed Cell Distribution Width14.011.0-15.0 %Platelet Zteku861 150-450 10 3/uLMean Platelet Volume9.49.5-13.5 fLPerforming Lab:see noteML - [facility] LBManual Differential Reviewed date:01/12/2025 09:41:19 AM Interpretation: Performing Lab: Notes/Report: [facility] ,Segmented Neutrophils % Pmumno09.043.0-75.0Lymphocytes Percent Manual3.020.5- 60.0 %Monocytes Percent Manual7.01.7-12.0 %Eosinophils Percent Manual0.00.9-7.0 %Basophils Percent Manual0.00.2-2.0 %Segmented Neut Absolute Manual9.631.4-6.5 10 3/uLLymphocytes Absolute Manual0.321.20-3.80 10 3/uLMonocytes Absolute Manual 0.740.30-0.80 10 3/uLEosinophils Absolute Manual0.000.00-0.70 10 3/uLBasophils Abs Manual0.000.00-0.10 10 3/uLPerforming Lab:see noteML - [facility] LBUA RANDOM W or MICROSCOPIC Reviewed date:01/13/2025 02:13:13 PM Interpretation: Performing Lab: Notes/Report: [facility] ,Color UrineLT. YELLOWYELLOWClarity UrineCLEARCLEARSpecific [place] Urine1.010 1.005-1.025pH Urine6.05.0-9.0Protein UrineNEGATIVENEG/TRACE mg/dLGlucose Urine LG278UZFMPCYV mg/dLBilirubin UrineNEGATIVENEGATIVEKetones UrineNEGATIVENEGATIVE mg/dLBlood UrineNEGATIVENEGATIVENitrite UrineNEGATIVENEGATIVEUrobilinogen Urine 0.20.2-1.0 EU/dLLeukocyte Esterase UrineNEGATIVENEGATIVEWBC Urine0-2NONE SEEN #/HPFRBC UrineNONE SEEN0-2 #/HPFBacteria UrineNONE SEENNONE SEEN #/HPFMucus UrineNONE SEENNONE SEENSquamous Epithelial Cell UrineRARENONE/RARE #/LPFCrystals Seen?None SeenNone Seen #/HPFCast Seen?NONE SEENNONE SEEN #/LPFUrine Culture IndicatedNOPerforming Lab:see noteML - [facility] LBBNP Reviewed date:01/13/2025 02:13:13 PM Interpretation: Performing Lab: Notes/Report: [facility] ,NT Pro B Type Natriuretic Nflr282.0<=900.0 pg/mLPerforming Lab:see noteML - [facility] LBCBC AUTO DIFF Reviewed date:01/13/2025 02:13:13 PM Interpretation: Performing Lab: Notes/Report: [facility] ,White Blood Count8.14.0-11.0 10 3/uLRed Blood Count3.554.20-5.40 10 6/uL Muoqhdicsu59.812.0-16.0 g/iMUvbgxedexe94.136.0-48.0 %Mean Corpuscular Ofjqdu52.2 81.0-99.0 fLMean Corpuscular Ifwuejclav49.426.7-34.0 pgMean Corpuscular HGB Conc 32.629.9-35.2 g/dLRed Cell Distribution Width13.911.0-15.0 %Platelet Zxjya194 150-450 10 3/uLMean Platelet Volume9.79.5-13.5 fLNeutrophils Percent Auto83.3 43.0-75.0 %Lymphocytes Percent Auto3.820.5-60.0 %Monocytes Percent Auto7.81.7- 12.0 %Eosinophils Percent Auto0.10.9-7.0 %Basophils Percent Auto0.20.2-2.0 % Immature Granulocytes Pct Auto4.80.0-0.5 %Neutrophils Absolute Auto6.71.4-6.5 10 3/uLLymphocytes Absolute Auto0.31.2-3.8 10 3/uLMonocytes Absolute Auto0.60.3-0.8 10 3/uLEosinophils Absolute Auto0.00.0-0.7 10 3/uLBasophils Absolute Auto0.00.0- 0.1 10 3/uLImmature Granulocytes Abs Auto0.390.00-0.03 10 3/uLPerforming Lab:see noteML - [facility] LBPROF CHEM 8 (BAS METB) Reviewed date:01/13/2025 02:13:13 PM Interpretation: Performing Lab: Notes/Report: [facility] ,Yhyavg199331-926 mmol/LPotassium4.83.5-5.1 mmol/KVyearzqj0893-961 mmol/LCarbon Qvshpjx09.921.0-32.0 mmol/LAnion Gap10.1Avzbrvn81623-302 mg/dLBlood Urea Ftusvnyo71.07.0-18.0 mg/dLCreatinine1.210.55-1.02 mg/dLEstimated GFR ( Ankniqh80>=60 mL/min/1.73m 2Estimated GFR (Non- Ame44>=60 mL/min/1.73m 2 BUN Creatinine Ratio29.8Rxitevv2.18.5-10.1 mg/dLPerforming Lab:see noteML - [facility] LBManual Differential Reviewed date:01/12/2025 09:41:19 AM Interpretation: Performing Lab: Notes/Report: [facility] ,Segmented Neutrophils % Cjawyi69.043.0-75.0Band Neutrophils %1.00-5 % Lymphocytes Percent Manual4.020.5-60.0 %Monocytes Percent Manual4.01.7-12.0 % Eosinophils Percent Manual0.00.9-7.0 %Basophils Percent Manual0.00.2-2.0 % Segmented Neut Absolute Fbvryc70.651.4-6.5 10 3/uLBand Neutrophils Absolute0.2 0.0-0.3 10 3/uLLymphocytes Absolute Manual0.641.20-3.80 10 3/uLMonocytes Absolute Manual0.640.30-0.80 10 3/uLEosinophils Absolute Manual0.000.00-0.70 10 3/uLBasophils Abs Manual0.000.00-0.10 10 3/uLPerforming Lab:see noteML - [facility] LBPROF CHEM 8 (BAS METB) Reviewed date:01/12/2025 09:41:19 AM Interpretation: Performing Lab: Notes/Report: [facility] ,Ixkbkm407182-690 mmol/LPotassium4.43.5-5.1 mmol/ELsgmxvln9559-195 mmol/LCarbon Tgthfsz70.121.0-32.0 mmol/LAnion Gap14.6Xzeddxh78060-364 mg/dLBlood Urea Btjccocd26.07.0-18.0 mg/dLCreatinine1.340.55-1.02 mg/dLEstimated GFR ( Oyrunlt74>=60 mL/min/1.73m 2Estimated GFR (Non- Ame39>=60 mL/min/1.73m 2 BUN Creatinine Ratio25.1Eyepzpb7.68.5-10.1 mg/dLPerforming Lab:see noteML - [facility] LBCBC AUTO DIFF Reviewed date:01/12/2025 09:41:19 AM Interpretation: Performing Lab: Notes/Report: [facility] ,White Blood Count16.14.0-11.0 10 3/uLRed Blood Count4.584.20-5.40 10 6/uL Zjejqekapm20.812.0-16.0 g/sSHulyialmzc66.236.0-48.0 %Mean Corpuscular Nsvicn31.3 81.0-99.0 fLMean Corpuscular Aypoxzqzms88.126.7-34.0 pgMean Corpuscular HGB Conc 31.929.9-35.2 g/dLRed Cell Distribution Width13.911.0-15.0 %Platelet Btyka799 150-450 10 3/uLMean Platelet Volume9.29.5-13.5 fLPerforming Lab:see noteML - [facility] LBBNP Reviewed date:01/12/2025 09:41:19 AM Interpretation: Performing Lab: Notes/Report: [facility] ,NT Pro B Type Natriuretic Qagw533.0<=900.0 pg/mLPerforming Lab:see noteML - [facility] LBBLOOD GASES BTY Reviewed date:01/12/2025 09:41:19 AM Interpretation: Performing Lab: Notes/Report: [facility] ,pH ABG7.3917.350-7.450ABG VMA223.035.0-45.0 mmHg RESULTS CALLED TO CARLOS TRAORE RN ON [employer] BY Luzma Villa at 0854 PO2 YYW756.080.0-100.0 mmHgHCO3 ABG30.922.0-26.0 mmol/LBase Excess ABG6.0 -2.0-2.0 mmol/LOxygen Saturation ABG99.3Allen TestPOSITIVEPOSITIVEO2 Mode VAPOTHERMLiters per Irnwfa74Vektqivkazeo Inspired Kvameq040Pshtdrte SiteL RAD Performing Lab:see noteML - [facility] LBCBC AUTO DIFF Reviewed date:01/09/2025 09:12:32 PM Interpretation: Performing Lab: Notes/Report: [facility] ,White Blood Count12.94.0-11.0 10 3/uLRed Blood Count4.304.20-5.40 10 6/uL Kxgngqzptr90.212.0-16.0 g/sBEdtnsyahdh95.336.0-48.0 %Mean Corpuscular Hqesiy38.7 81.0-99.0 fLMean Corpuscular Noivqgligg89.726.7-34.0 pgMean Corpuscular HGB Conc 32.829.9-35.2 g/dLRed Cell Distribution Width14.311.0-15.0 %Platelet Xpowh877 150-450 10 3/uLMean Platelet Volume8.89.5-13.5 fLPerforming Lab:see noteML - [facility] YGSNVC-ByW-1 Ag* Reviewed date:01/08/2025 09:36:16 PM Interpretation: Performing Lab: Notes/Report: [facility] ,SARS-CoV-2 AgPOSITIVENEGATIVE CALLED TO JESSICA BENITEZ, RN @ [phone] This test has not been FDA cleared [...] is revoked sooner. Performing Lab:see noteML - [facility] LBRSV Reviewed date:01/08/2025 09:36:16 PM Interpretation: Performing Lab: Notes/Report: [facility] ,Respiratory Syncytial VirusNot DetectedNOT DETECTEPerforming Lab:see noteML - [facility] LBMAGNESIUM Reviewed date:01/08/2025 09:36:16 PM Interpretation: Performing Lab: Notes/Report: [facility] ,Magnesium2.11.8-2.4 mg/dLPerforming Lab:see noteML - [facility] LB LACTATE or LACTIC ACID Reviewed date:01/08/2025 09:36:16 PM Interpretation: Performing Lab: Notes/Report: [facility] ,Lactate/Lactic Acid1.50.4-2.0 mmol/LPerforming Lab:see noteML - [facility] LBINFLUENZA A AND B AG Reviewed date:01/08/2025 09:36:16 PM Interpretation: Performing Lab: Notes/Report: [facility] ,Influenza Virus A AntigenNegative Negative for Flu [...] detection limit of the test. Performing Lab:see note - [facility] LBPROF CHEM 8 (BAS METB) Reviewed date:01/07/2025 07:51:37 PM Interpretation: Performing Lab: Notes/Report: [facility] ,Ivetqe153647-194 mmol/LPotassium4.33.5-5.1 mmol/LAphlgjnp49995-135 mmol/LCarbon Rbgstlr97.421.0-32.0 mmol/LAnion Gap7.8Ilxeyiq43199-998 mg/dLBlood Urea Nitrogen 33.07.0-18.0 mg/dLCreatinine1.250.55-1.02 mg/dLEstimated GFR ( Mohbezt51 >=60 mL/min/1.73m 2Estimated GFR (Non- Ame43>=60 mL/min/1.73m 2BUN Creatinine Ratio26.0Uhqvrfu7.38.5-10.1 mg/dLPerforming Lab:see note - [facility] LBCA echo doppler complete Reviewed date:01/06/2025 09:44:14 PM Interpretation: Performing Lab: Notes/Report: Source Facility: [facility]-[address] [place] [address] [place] [address] Cardiology Report Signed Patient: DIANA CHAMPION MR#: [id number] : 1955 Acct:[id number] Age/Sex: 69 / F ADM Date: 01/02/25 Loc: MS 214-[address]: Kandy Zepeda M.D. Ordering Physician: Kandy Zepeda M.D. Date of Service: 01/06/25 Procedure(s): CA echo doppler complete Accession Number(s): [id number] cc: CRISTIAN BLANC Douglas M.D. Patient Name: DIANA CHAMPION MR#: [id number] : 1955 Exam Date: 01/06/2025 Ordering Doctor: [...] Area (VTI): 2.34 cm2, 2.34 cm2 Deceleration Beaver: Pressure Half-Time: Peak Velocity(Antegrade Flow): 1.33 m/s [...] M.D. Signed By: 01/06/251807 DD/ 06 TD/TT: Venetian Blind Washer:PROF JOSSELINE Ramirez ([facility]) Reviewed date:01/06/2025 09:44:14 PM Interpretation: Performing Lab: Notes/Report: [facility] ,Wrxdlo707620-975 mmol/LPotassium4.13.5-5.1 mmol/YZvjxmlzi58373-605 mmol/LCarbon Tsomtpm56.721.0-32.0 mmol/LAnion Gap10.7Jseumja08753-359 mg/dLBlood Urea Aqahlmjt58.07.0-18.0 mg/dLCreatinine1.180.55-1.02 mg/dLEstimated GFR ( Hfnvzuh16>=60 mL/min/1.73m 2Estimated GFR (Non- Ame46>=60 mL/min/1.73m 2 BUN Creatinine Ratio23.3Ilwkcid2.38.5-10.1 mg/dLPerforming Lab:see note - [facility] LBBNP Reviewed date:01/06/2025 09:44:14 PM Interpretation: Performing Lab: Notes/Report: Comment use blood from this am or skip [facility] ,NT Pro B Type Natriuretic Wqnl6421.0<=900.0 pg/mLRESULTS CALLED TO LYNDSEY Stokeserforming Lab:see note - [facility] LBXR chest 2V Reviewed date:01/05/2025 12:57:10 PM Interpretation: Performing Lab: Notes/Report: Source Facility: [place] [address] XRay Report Signed Patient: DIANA CHAMPION MR#: [id number] : 1955 Acct:[id number] Age/Sex: 69 / F ADM Date: 01/02/25 Loc: MS 214-[address]: Kandy Zepeda M.D. Ordering Physician: Kandy Zepeda M.D. Date of Service: 01/05/25 Procedure(s): XR chest 2V Accession Number(s): [id number] cc: AIDA BLANC; Kandy Zepeda M.D. [place] [id number] Patient Name: DIANA CHAMPION MRN: [id number] date: 1955 Sex: F Assigned Patient Location: [place] Current Patient Location: [place] Accession/Order Number: [id number] Exam Date: 01/05/2025 09:39 Report Date: 01/05/2025 [...] Medina Jr., D.O.01/05/2025 9:42 AM Dictation Location: [facility] Electronically authenticated by: [id number] Y Date: 01/05/2025 09:42 Dictated By: Marcos Medina M.D. Signed By: 01/05/2545 DD/ 1 TD/TT: Venetian Blind Washer:Venous Blood Gas Reviewed date:01/05/2025 12:57:10 PM Interpretation: Performing Lab: Notes/Report: [facility] ,pH VBG7.4347.330-7.533LSA8 VBG45.840.0-52.0 mmHgPerforming Lab:see note - [facility] LBPROF CHEM 8 (BAS METB) Reviewed date:01/05/2025 12:57:10 PM Interpretation: Performing Lab: Notes/Report: [facility] ,Rowtra295973-817 mmol/LPotassium4.33.5-5.1 mmol/WIkchxgab10435-540 mmol/LCarbon Cttcykv31.221.0-32.0 mmol/LAnion Gap12.3Kafgnnv45868-425 mg/dLBlood Urea Ecnikneg61.07.0-18.0 mg/dLCreatinine1.230.55-1.02 mg/dLEstimated GFR ( Qxuxtxs23>=60 mL/min/1.73m 2Estimated GFR (Non- Ame43>=60 mL/min/1.73m 2 BUN Creatinine Ratio19.1Inbfvje1.58.5-10.1 mg/dLPerforming Lab:see note - [facility] LBPROF CHEM 8 (BAS METB) Reviewed date:01/14/2025 09:26:10 AM Interpretation: Performing Lab: Notes/Report: [facility] ,Segnyh795167-448 mmol/LPotassium4.43.5-5.1 mmol/HWewpbuts5425-176 mmol/LCarbon Flfbnga29.021.0-32.0 mmol/LAnion Gap8.9Udzmiob03639-654 mg/dLBlood Urea Nitrogen 40.07.0-18.0 mg/dLCreatinine1.140.55-1.02 mg/dLEstimated GFR ( Tkoicya07 >=60 mL/min/1.73m 2Estimated GFR (Non- Ame47>=60 mL/min/1.73m 2BUN Creatinine Ratio35.1Ilyjfkw6.18.5-10.1 mg/dLPerforming Lab:see noteML - [facility] LBCBC AUTO DIFF Reviewed date:01/14/2025 09:26:10 AM Interpretation: Performing Lab: Notes/Report: [facility] ,White Blood Count9.74.0-11.0 10 3/uLRed Blood Count4.084.20-5.40 10 6/uL Vhmdurhpsl08.212.0-16.0 g/fNQpeseechdh02.036.0-48.0 %Mean Corpuscular Cfkihf04.7 81.0-99.0 fLMean Corpuscular Eslfeldjde90.926.7-34.0 pgMean Corpuscular HGB Conc 33.029.9-35.2 g/dLRed Cell Distribution Width13.911.0-15.0 %Platelet Jiiek420 150-450 10 3/uLMean Platelet Volume9.89.5-13.5 fLNeutrophils Percent Auto80.7 43.0-75.0 %Lymphocytes Percent Auto5.720.5-60.0 %Monocytes Percent Auto7.11.7- 12.0 %Eosinophils Percent Auto0.30.9-7.0 %Basophils Percent Auto0.30.2-2.0 % Immature Granulocytes Pct Auto5.90.0-0.5 %Neutrophils Absolute Auto7.91.4-6.5 10 3/uLLymphocytes Absolute Auto0.61.2-3.8 10 3/uLMonocytes Absolute Auto0.70.3- 0.8 10 3/uLEosinophils Absolute Auto0.00.0-0.7 10 3/uLBasophils Absolute Auto0.0 0.0-0.1 10 3/uLImmature Granulocytes Abs Auto0.570.00-0.03 10 3/uLPerforming Lab:see noteML - [facility] LBBNP Reviewed date:01/14/2025 09:26:10 AM Interpretation: Performing Lab: Notes/Report: [facility] ,NT Pro B Type Natriuretic Rrnm787.0<=900.0 pg/mLPerforming Lab:see noteML - [facility] LBManual Differential Reviewed date:01/12/2025 09:41:19 AM Interpretation: Performing Lab: Notes/Report: [facility] ,Segmented Neutrophils % Cmxvgt34.043.0-75.0Lymphocytes Percent Manual2.020.5- 60.0 %Monocytes Percent Manual4.01.7-12.0 %Eosinophils Percent Manual0.00.9-7.0 %Basophils Percent Manual0.00.2-2.0 %Segmented Neut Absolute Cmentd67.431.4-6.5 10 3/uLLymphocytes Absolute Manual0.221.20-3.80 10 3/uLMonocytes Absolute Manual 0.440.30-0.80 10 3/uLEosinophils Absolute Manual0.000.00-0.70 10 3/uLBasophils Abs Manual0.000.00-0.10 10 3/uLAnisocytosis1+Performing Lab:see noteML - [facility] LBVANCOMYCIN TROUGH Reviewed date:01/13/2025 02:13:13 PM Interpretation: Performing Lab: Notes/Report: [facility] ,Vancomycin Mxuxkn44.05.0-20.0 ug/mLPerforming Lab:see noteML - [facility] LBPROF CHEM 8 (BAS METB) Reviewed date:01/12/2025 09:41:19 AM Interpretation: Performing Lab: Notes/Report: [facility] ,Htmktn493738-712 mmol/LPotassium4.63.5-5.1 mmol/UDruqqktx5744-645 mmol/LCarbon Bzcnjwg19.921.0-32.0 mmol/LAnion Gap11.4Talczca16039-060 mg/dLBlood Urea Loxdmlud64.07.0-18.0 mg/dLCreatinine1.110.55-1.02 mg/dLEstimated GFR ( Ynjcway12>=60 mL/min/1.73m 2Estimated GFR (Non- Ame49>=60 mL/min/1.73m 2 BUN Creatinine Ratio33.9Oqbzyva0.58.5-10.1 mg/dLPerforming Lab:see noteML - [facility] LBCBC AUTO DIFF Reviewed date:01/12/2025 09:41:19 AM Interpretation: Performing Lab: Notes/Report: [facility] ,White Blood Count11.14.0-11.0 10 3/uLRed Blood Count4.244.20-5.40 10 6/uL Zkhrrxmfph09.712.0-16.0 g/dETrgcyestms17.136.0-48.0 %Mean Corpuscular Napaig31.2 81.0-99.0 fLMean Corpuscular Bkrcdgpmap87.026.7-34.0 pgMean Corpuscular HGB Conc 32.529.9-35.2 g/dLRed Cell Distribution Width13.811.0-15.0 %Platelet Cyqsq560 150-450 10 3/uLMean Platelet Volume9.59.5-13.5 fLPerforming Lab:see noteML - [facility] LBBNP Reviewed date:01/12/2025 09:41:19 AM Interpretation: Performing Lab: Notes/Report: [facility] ,NT Pro B Type Natriuretic Nkut295.0<=900.0 pg/mLPerforming Lab:see note - [facility] LBPROF CHEM 8 (BAS METB) Reviewed date:01/12/2025 09:41:19 AM Interpretation: Performing Lab: Notes/Report: [facility] ,Nusikn361477-216 mmol/LPotassium4.63.5-5.1 mmol/PPbmvyguf0854-492 mmol/LCarbon Jjuniht14.121.0-32.0 mmol/LAnion Gap10.1Djraoyi07451-374 mg/dLBlood Urea Wgkneqrc42.07.0-18.0 mg/dLCreatinine1.140.55-1.02 mg/dLEstimated GFR ( Vwcivpp66>=60 mL/min/1.73m 2Estimated GFR (Non- Ame47>=60 mL/min/1.73m 2 BUN Creatinine Ratio30.9Airlwfq3.38.5-10.1 mg/dLPerforming Lab:see noteML - [facility] LBBNP Reviewed date:01/12/2025 09:41:19 AM Interpretation: Performing Lab: Notes/Report: [facility] ,NT Pro B Type Natriuretic Ycfp836.0<=900.0 pg/mLPerforming Lab:see noteML - [facility] LB Reason For Referral No Information [...] generate enough inspiratory force for dry powder skxfofmp71/21/2025ActiveMucinex 600 MG1-2 tablets as needed for congestion [...] Comme nts Arexvy Unknown 08/18/2023 Administered Comirnaty Politapoll Syringe Pre-Filled 30 mcg/0.3 uDUgoawez73/15/2024dministered Flu, Fluad (02996) 65 yrs + High Dose Seasonal (9368-6670)Dvryekv1609/06/2024 AdministeredFlu, Fluzone High-Dose (7217-5933) (20182) 65 yrs+Kpcgkxz3708/26/2023 AdministeredPneumococcal (Pneumovax 23)Ngctcqs7510/19/2018AdministeredPneumococcal (Prevnar 20)Oxtwxru4408/09/2023dministeredSpikevax Moderna Syringe Pre-Filled 50 mcg/0.5 xGGwchvaz78/21/2023AdministeredZOSTER (SHINGLES) VACCINE (HZV)Unknown 11/01/2022dministered Social History Tobacco Use: Social History Observation Description Date Details (start date - stop date) Never Smoker NA - NA Tobacco Control (Standard) Question Answer Notes Tobacco use: Nonsmoker Problems Problem Type SNOMED Code ICD Code Onset Dates Problem Status W/U Status Risk Notes Problem Morbid obesity (disorder) (10490 6002) Morbid (severe) obesity due to excess calories (E66.01) ActiveconfirmedProblemCritical illness myopathy (341864874)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)ActiveconfirmedProblemChronic respiratory failure (12393089) Chronic respiratory failure with hypoxia (J96.11)ActiveconfirmedProblemPulmonary collapse (90248153)Other pulmonary collapse (J98.19)ActiveconfirmedDynamic airway collapseProblemLong-term current use of inhaled steroid (974363320)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)ActiveconfirmedProblemChronic obstructive pulmonary disease (37675647)Chronic obstructive pulmonary disease (J44.9)ActiveconfirmedPrior treatment: Trelegy 100 > Breo 100 > Spiriva > albuterol > AtroventProblemRestless legs syndrome (17958328)Restless leg syndrome (G25.81)ActiveconfirmedProblemDepression (103689290)Depression (F32.9) ActiveconfirmedProblemAllergic rhinitis (69251762)Allergic rhinitis (J30.9) ActiveconfirmedProblemRestrictive lung disease (57362327)Restrictive lung disease (J98.4)ActiveconfirmedProblemMultiple pulmonary nodules (527637283) Multiple pulmonary nodules (R91.8)ActiveconfirmedProblemLung field abnormal (225403293)Ground glass opacity present on imaging of lung (R91.8)Active confirmedProblemGastroesophageal reflux disease (056295275)Gastroesophageal reflux disease (K21.9)ActiveconfirmedProblemExacerbation of asthma (896954606) Asthma with acute exacerbation (J45.901)ActiveconfirmedProblemDaytime sleep (605896124)Daytime hypersomnolence (G47.19)ActiveconfirmedProblemPneumonia (604996589)Healthcare-associated pneumonia (J18.9)ActiveconfirmedProblem Secondary pulmonary hypertension (00973350)Other secondary pulmonary hypertension (I27.29)ActiveconfirmedProblemAllergic rhinitis (37212358)Allergic rhinitis, unspecified seasonality, unspecified trigger (J30.9)Activeconfirmed ProblemLumbar spinal stenosis (07610185)Lumbar stenosis (M48.061)Activeconfirmed ProblemHistory of COVID-19 (850358449655773773)History of COVID-19 (Z86.16) Activeconfirmed04/04/2023: Severe associated hypoxic respiratory failureProblem Body mass index 40+ - severely obese (246388959)Body mass index [BMI] 40.0-44.9, adult (Z68.41)Activeconfirmed Vital Signs Heart Rate 73 /min 05/01/2025 Drvrfecsntj78.0 degrees Xwjhkfxsbq70/26/2025Respiratory Rate20 /min05/01/2025 Pjenzecy34 %05/01/2025lood pressure rifxxuvux07 mm Hg05/01/20254080Lacjbn90 in 05/01/2025lood pressure dmykhyrw381 mm Hg05/01/20258570Yykmtl565.0 lbs05/01/2025MI 44.59 kg/m205/01/2025 Encounters Encounter Location Date Provider Diagnosis Pulmonary Medicine [place] [address] [place] [address] 07/21/2025 [facility] Pulmonary Medicine [address] [place] [address]/01/2025 [facility] [address] [place] [address] 01/08[facility]20[facility] [address] [place] [address]/09/2025[facility] [address] [facility] [place] [address]/09/2025[facility] [address] [place] [address]/[facility] CenterCh[facility] obstructive pulmonary disease J44.9Pulmonary Medicine [address] [place] [address]/09/2025[facility] [address] [place] [address]/[facility] [address] [place] [address]/05/2025[facility] CenterChronic obstructive pulmonary disease J44.9Pulmonary Medicine [address] [place] [address]/[facility] Medicine [address] [address] Center[facility] disease with (acute) exacerbation J44.1 and Candidal stomatitis B37.0ulmonary [address] [address]/[facility] Chronic obstructive pulmonary disease J44.9 ; Other pulmonary collapse J98.19 ; Seborrheic dermatitis, unspecified L21.9 ; 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 ; Chronic respiratory failure with hypoxia J96.11 ; 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.51 ; History of COVID-19 Z86.16 and Morbid (severe) obesity due to excess calories E66.01ulmonary [address] [address]/[facility] Center[facility] disease J44.9 ; Other pulmonary collapse J98.19 ; 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 ; Other secondary pulmonary hypertension I27.29 ; Chronic respiratory failure with hypoxia J96.11 ; group home (current) use of inhaled steroids Z79.51 ; History of COVID-19 Z86.16 and Morbid (severe) obesity due to excess calories E66.01ulmonary [address] [address] 05/01/2025[facility] J44.9 ; 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 ; Other pulmonary collapse J98.19 ; Chronic respiratory failure with hypoxia J96.11 ; Other secondary pulmonary hypertension I27.29 ; Allergic rhinitis J30.9 ; Oral candidiasis B37.0 ; group home (current) use of inhaled steroids Z79.51 ; Morbid (severe) obesity due to excess calories E66.01 and History of COVID-[address] [address]/[facility] Center[facility] disease J44.9 ; Other pulmonary collapse J98.19 ; 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 [...] with her history). Most recently on Rocephin, Krunalthromax, and doxycycline - will Rx Augmentin 500. 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 [...] she keep up with her pulmonary toilet. [facility] Pulmonology practice will be permanently closing. Refilling all medications today. As it will be several months until I would be able to see her again elsewhere, prescribing prednisone and antibiotics in case she has a flare and is unable to reach anyone. 05/01/2025ritical illness myopathy (ICD-10 - G72.81) Vifh-jf-okoa encounter performed with the patient to document [...] Breo 100 > Spiriva > albuterol > Adfpyaje15/21/2025Chronic obstructive pulmonary disease (ICD-10 - J44.9)Prior treatment: Trelegy 100 > Breo 100 > Spiriva > albuterol > Dhrjhbbo34/26/2025Other pulmonary collapse (ICD-10 - J98.19)Dynamic airway collapse [...] with critical illness myopathy secondary to COVID-19 Ctfc-gz-icxz performed today regarding continued need for NIV. [...] today. 5Critical illness myopathy (ICD-10 - G72.81) Bzdh-lu-tuhj encounter performed with the patient to document [...] Blue. Any further treatment, follow-up with PCP. 10/22/2024ritical illness myopathy (ICD-10 - G72.81) Blnl-sc-tuyq encounter performed with the patient to document [...] lightheadedness. 04/02/2025ritical illness myopathy (ICD-10 - G72.81) Irtm-ci-bdkt encounter performed with the patient to document [...] respiratory failure with hypoxia (ICD-10 - J96.11) Moiu-ih-ritt encounter performed with the patient to document [...] respiratory failure with hypoxia (ICD-10 - J96.11) Ujjd-cx-nffw encounter performed with the patient to document [...] respiratory failure with hypoxia (ICD-10 - J96.11) Uxdj-en-yfis encounter performed with the patient to document [...] so will continue to monitor for now. 10/22/2024Lo term (current) use of inhaled steroids (ICD-10 - Z79.51) Patient was counseled to rinse & gargle with water after inhaled corticosteroid use. 01/29/2025Long term (current) use of inhaled steroids (ICD-10 - Z79.51) Patient was counseled to rinse & gargle with water after inhaled corticosteroid use. 04/02/2025hronic respiratory failure with hypoxia (ICD-10 - J96.11) Nuwh-vv-ysme encounter performed with the patient to document [...] of requiring O2. -Recommendations: Continue O2 ATC. 05/01/2025llergic rhinitis (ICD-10 - J30.9) Continue Flonase and Singulair. 05/01/2025Oral candidiasis (ICD-10 - B37.0) Refill of clotrimazole sent in just in case 04/02/2025Lo term (current) use of inhaled steroids (ICD-10 - Z79.51) Patient was counseled to rinse & gargle with water after inhaled corticosteroid use. 01/29/2025History of COVID-19 (ICD-10 - Z86.16)04/04/2023: Severe associated hypoxic respiratory wzewitk6010/22/2024History of COVID-19 (ICD-10 - Z86.16) 04/04/2023: Severe associated hypoxic respiratory ibpexim2810/22/2024Morbid (severe) obesity due to excess calories (ICD-10 [...] (ICD-10 - Z86.16)04/04/2023: Severe associated hypoxic respiratory omtyseo5405/01/2025Long term (current) use of inhaled steroids (ICD-10 [...] (ICD-10 - Z86.16)04/04/2023: Severe associated hypoxic respiratory vxgjzvs3410/22/20240703Ewbnw00/26/2025Other As above, suggested patient scrub her face [...] End Date [address] [place] [id number] Kd Champion - patient is the dxfckym70ETNA MEDICAREPO [address] [place], [place] [phone], SherrySelf - patient is the [id number] [address], [place] [id number], SherrySelf - patient is the insured Medical [...] Surgical History Surgery Date(Month/Year) Cardiac Catheterization spinal fusiontubal ligationRight Foot Surgeryright knee replacementleft hip replacementBronchoscopy-07/02/2024Hospitalization History Reason Date(Month/Year) HCAP - [facility] 03/11/2025 COVID & Pseudomonas pneumonia-[facility] 2024 Asthma/COPD Exacerbation-[facility] 01/02/2025 COPD Exacerbation, pneumonia-[facility] 1/7/202 5 COPD Exacerbation-[facility] 06/07/2024 COPD Exacerbation-[facility] 04/11/2024 Pneumonia-[facility] 02/03/2024 Rwmww-40-MMV 04/10/2023 Hospital Acquired Pneumonia-[facility] 08/08/20 Sepsis/Pneumonia-[facility] 11/25/2023
--- OUTSIDE RECORDS SUMMARY | 2025-09-26 13:01 | XMS_ITS | Clinical Summary ---
Author Organization [facility] Address [address] [place] [address] Care Team Providers Care A Auxiliary Name Role Phone Unavailable Primary Care Provider [...] (SINGULAIR) 10 mg tablet montelukast 10 mg funtrw3306/24/2019Active therapeutic multivitamin-minerals (THERA-M PLUS) 9 mg iron-400 [...] number is lower riskNot on file1Data from: https://www.neighborhoodatlas.medicine.[facility].edu/. Last address used for calculationNot on file1CommentsNoSex and Gender Information ValueDate RecordedSex Assigned at BirthNot on fileLegal AobPpurrq62/15/2017 10:53 AM ESTGender IdentityNot on fileSexual OrientationNot on file Last Filed Vital Signs Vital SignReadingTime TakenCommentsBlood Bnfnmjcs109/7609/23/2020 2:26 PM EST Tawel617209/23/2020 2:26 PM DEEBxltwggavap67.4 ??C (97.5 ??F)09/23/2020 2:26 PM ESTRespiratory Ejvu116711/23/2019 2:26 PM ESTOxygen Noxorkgwvc85%09/23/2020 2:26 PM ESTInhaled Oxygen Concentration--Gbubjq035.1 kg (225 lb)09/23/2020 2:26 PM HUBPvkjaw797.6 cm (5' 4 )09/23/2020 2:26 PM ESTBody Mass Index38.6209/23/2020 2:26 PM EST Plan of Treatment Health MaintenanceDue DateLast DoneCommentsAnxiety Lohmnmilh81/28/1974Depression Kdhadripu40/28/1974Hepatitis C Fndwnvmln97/28/1974DTaP,Tdap,Td Vaccine (1 - Tdap)1975Mammogram Yivueoypt27/28/1996CT Unpwdndpbdtx94/28/2001Cologuard (FIT-DNA)08/03/20019653Kzbxraeqpis11/28/2001Colorectal Cancer Hbscmixqy87/28/2001 Fecal Occult Blood2001Lipid Dqpoenkuo93/28/4723Gmqkkgptprcrr26/28/2001 Shingrix Vaccine (1 of 2)2006Pneumococcal Vaccine: 50+ (2 of 2 - PCV) Bone Density Grewbkizn73/28/2021Diabetes Larnymqdg80/27/2021 10/02/2018Advance Directive Ajnburmijq47/01/2025Covid-19 Vaccine (1 - 2024- season)2025Influenza Vaccine (#1)RSV Vaccine (1 - 1- dose 75+ series)2031 Insurance
--- OUTSIDE RECORDS SUMMARY | 2025-09-26 13:01 | XMS_ITS | Clinical Summary ---
Author Organization [facility] Address [address] [place] [address] Care Team Providers Care Portfolio Mgr Name Role Phone Kaylene Lópze MD Primary Care Provider [phone] Allergies Active AllergyReactionsCriticalityNoted DateCommentsFentanylOtherMedium 07/07/2017 Other Reaction(s): [...] 1 tablet by mouth in the morning.Active nzrgmsjpeck-wcfeshpux-agasxxgm 100-62.5-25 mcg blister with device Active guaiFENesin [...] MOUTH IN THE MORNING AND 1 AT UXJADYD2705/06/2024ctive traMADol (Ultram) 50 mg tablet Take 50 [...] INSTILL 1 DROP INTO EACH EYE AT YVCQXGD0806/18/2024ctive ofloxacin (Ocuflox) 0.3 % ophthalmic solution 07/10/2024ctive [...] at bedtime.Active Active Problems ProblemNoted DateDiagnosed DateMixed jcmmryuxotjn50/27/2025Primary HSV infection of mouth11/12/2024Neoplasm of uncertain behavior of chest wall10/07/2024History of colon qrhrua0905/13/2024neumonia due to infectious /11/2024 Overview (05/13/2024): Last Assessment & Plan: Finish [...] CKD. Check BMP. Chronic respiratory failure with uhycujq7012/28/2023 Overview (05/13/2024): Last Assessment & Plan: On 3 L O2 via NC now. She was previously on 2 L She is doing well currently and stated that this is the best she has felt since she had COVID over a year ago. Fnghtqvzpuzt24/22/2024 Overview (05/13/2024): Last Assessment & Plan: WBC [...] to ED if she experiences worsening SOB. Kwgbggnrpzszp03/30/6385Ftwrscr26/30/2024Spinal stenosis, lumbar region without neurogenic nqqpyllsefta61/30/2024Status post total right knee replacement 12/05/2023Medicare annual wellness visit, doquydlnss02/01/2024 Overview (05/13/2024): Last Assessment & Plan: Here for Medicare Wellness. Screened for depression, cognitive impairment, fall risk Ordered cologuard for the patient. Mammogram not due. Will order next appt. Yjhkxgixx06/29/2023t moderate risk for fall10/04/2023hronic back pain greater than 3 months spsepqwy41/29/2023hronic heart failure with preserved ejection tildavsb55/29/2023hronic kidney disease, stage III (moderate)10/04/2023hronic low back pain without qjrpbmiu85/29/2023 Overview (05/13/2024): Last Assessment & Plan: Chronic [...] on the etiology of her pain Colorectal hxtoye5010/04/20230516Exjrvjhmjc07/29/2023 Overview (05/13/2024): Last Assessment & Plan: Patient currently on Trazodone and Paxil. Reports depressed mood, anhedonia, poor sleep. Increase Paxil to 30 mg. Trazodone to 100 mg. Patient counseled and educated on adverse effects, drug interactions and to reach out to office/pharmacy if questions or concerns related to new medications. Iron deficiency uvyyky2110/04/2023Moderate persistent asthma with exacerbation 10/04/2023 Overview (05/13/2024): [...] finished her oral abx prescribed by her lead nurse. Continues to have bronchospasm, wheezing, chest tightness and will benefit from continuing pulse steroid taper as outpatient. Patient educated to go to ED if worsening SOB, hypoxia and no improvementwith prednisone. C/w albuterol q4. At high risk of poor outcome. Non-recurrent acute suppurative otitis media of both ears without spontaneous rupture of tympanic fkdnuohrk38/29/2023 Overview (05/13/2024): Last Assessment & Plan: B/l otitis media noted on exam. Will call in oral Augmentin for patient. Positive depression qpvaehoea85/29/2023ost-iagknwubcx38/29/2023Restless leg vwqaznmq45/29/2023Urge cssunpipiulj88/29/2023Vitamin D rbbarlnpqn73/29/2023 Malignant neoplasm of rectosigmoid uljxhqvg28/29/2023Morbid (severe) obesity due to excess oxnakuaq01/29/2023ody mass index (BMI) 40.0-44.9, adult05/08/2023 05/08/2023ritical illness slovlbxh44History of COVID-19 /01/2023Other secondary pulmonary zxpswyxekyhk27 Primary osteoarthritis of right hip03/26/2023Electrocardiogram abnormal 08/23/2022Disc displacement, qybdjc0603/26/2019 Overview (03/23/2023): Added automatically from request for surgery [id number] Arthritis of right knee10/17/2018Lumbar uauqzpmuqfe21/17/2018 Overview (03/23/2023): Added automatically from request for surgery [id number] Disorder of xajemd8201/15/2018 Overview (03/23/2023): Added automatically from request for surgery [id number] Xyezye8004/01/2014Chest pain04/01/2014Chronic obstructive lung aujzojt6004/01/2014 Chronic mgbtgtdaa34/27/7441Eyqcapw64/27/2684Zjcjy52/27/2014Essential ufjnqmlwakrr44/27/2014Gastroesophageal reflux uvxohbs6304/01/2014Hyperlipidemia 04/01/2014Type 2 diabetes mellitus without ofciewckncvk67 Overview (05/08/2023): Removal Reason: Patient states no [...] file07/11/2024Sexually AbusedNot on file07/11/2024HQ-2AnswerDate RecordedPatient Health Questionnaire-2 Dsfbq104/12/2024UT Safety & Environment AnswerDate RecordedFear of Current or Ex-PartnerNot on file12/28/2023Emotionally AbusedNot on file12/28/2023hysically AbusedNot on file12/28/2023Sexually Abused Not on file12/28/2023hysically or Sexually AbusedNot on file12/28/2023 CommentsUnknownSex and Gender InformationValueDate RecordedSex Assigned at Not on fileLegal UojXummjf47/29/2022 10:32 PM EDTGender IdentityNot on file Sexual OrientationNot on file Last Filed Vital Signs Vital SignReadingTime TakenCommentsBlood Mlhweedw959/7401/23/2025 12:03 PM EDT Xwhpu639801/23/2025 12:03 PM BEIOqfjcbzvakj35.4 ??C (97.5 ??F)07/02/2024 8:11 AM EDTRespiratory Joja171607/02/2024 12:20 PM EDTOxygen Tyeoaatzqs64%01/23/2025 12:03 PM EDTon 3L I1Cnfdoei Oxygen Concentration--Rsmvip543 kg (236 lb)01/23/2025 12:03 PM EDTper mdswuxjZqwipx688.6 cm (5' 4 )01/23/2025 12:03 PM EDTBody Mass Index40.51001/23/2025 12:03 PM EDT Plan of Treatment Health MaintenanceDue DateLast DoneCommentsCT Hrrobdoudefh1956olonoscopy 1956olorectal Cancer Ikzxdkgzt1956Diabetes: Hemoglobin A1C 1956FIT-DNA1956FIT1956FOBT1956Medicare Annual Wellness (AWV)08/03/19569973Zdpcqcesfwqbn1956Diabetes: Retinopathy Shbyjvzlx18/28/1966 Diabetes: Urine Protein Totfmnmsj62/28/1975Adult Qcwprbs6208/03/1978Mammogram 1996COVID-19 Vaccine ( season)/, 08/26/2023, 08/04/2022, Additional history existsInfluenza Vaccine (#1)5111/06/2023, 08/26/2023, 08/04/2022, Additional history existsDepression Ncnynbekh22/12/2025 10/17/2024Fall Risk Xdrvzbphf84Zoster VaccinesCompleted 11/01/2022, 2Pneumococcal Vaccine: 50+ DcrlpLfzbtqelh76/04/2023, 10/19/2018HIB VaccinesAged OutNo longer eligible based on [...] Date Kaylene López MD [address] [place] [address] PCP - GeneralNurse Practitioner01/22/25
--- OUTSIDE RECORDS SUMMARY | 2025-09-26 13:07 | XMS_ITS | CCD ---
Author Organization [facility] Inform ion [facility] Care Team Providers Care Environmental Monitoring Specialist Name Role Phone Steph Collier Attending [...] Provider MD Nicky Ohara Primary Care Provider [phone] Gilma Trent Unavailable JOANA, HERBERTH Attending Unavailable JOANA, HERBERTH Admitting Unavailable FAWWAD, MESSER H Primary Care Unavailable HERBERTH BERNARD Consulting Unavailable SAM ., BO Admitting Unavailable FAWWAD, MESSER H Primary Care Unavailable FAWWAD, MESESR H Consulting Unavailable JOHNY Rendon, BO Attending Unavailable BRITTANY GALDAMEZ Consulting Unavailable ISABEL ., DR SANTIAGO Admitting Unavailabl e KARBLANCA ., DR SANTIAGO Attending Unavailabl e KARBLANCA ., DR SANTIAGO Consulting Unavailabl e FAWMICK, MESSER H Primary Care Unavailable LITTLE SUAMICO, DR BRITTANY Elizondo Consulting Unavailable DARWIN, DR [...] Unavailable Tapan Zazueta MD Primary Care Provider [phone] Aida Reese NP Unavailable MD Allan Lacey Attending Provider KELI Reese Primary Care [facility] er TAPAN ZAZUETA Primary Care Physician Allan Lacey MD Attending Provider Mary Ann BRANDT-Aida Pastrana Primary Care [facility] er Allan Lacey Attending Unavailable Aida Reese Primary Care Unavaila Allan Fregoso Admitting Unavailable Allan Lacey Attending Unavailable Aida Reese Primary Care Unavaila Allan Fregoso Admitting Unavailable Mary Ann VALIDATION LEADER, Aida Unavailable OMBALLI, MOHAMED Referring Unavailable RADHA, [...] Alicia DRAPER, Jayshree Johnson Attending Unavailable Alicia DRPAER, Andrius Alex Attending Unavailable Alicia DRAPER, Vandanarius Johnson Attending Unavailable Tapan Zazueta MD Primary Care Provider Mary Ann VALIDATION LEADER, Aida Unavailable Mary Ann VALIDATION LEADER-C, Aida Tenorio Primary Care [facility] er Nicolas Dickinson DO Attending Provider [phone] Rene VALIDATION LEADER-CKaylene Primary Care Provider Rene VALIDATION LEADER-CKaylene Attending Provider AIDA REESE Attending UnavailJESSICA Thorpe Attending Unavailable RAMIN MAIER Attending Unavailable RAMIN MAIER Referring Unavailable RAMIN MAIER Referring Unavailable JESSICA LAZO Attending Unavailable AIDA REESE Attending Unavailtori e AIDA REESE Attending Unavailabl e AICHHOLZ, KAYLENE Attending Unavailable AICHHOLZ, KAYLNEE Attending Unavailable AICHHOLZ, KAYLENE Attending Unavailable AICHHOLZ, KAYLENE Attending Unavailable AICHHOLZ, KAYLENE Attending Unavailable JESSICA LAZO Attending Unavailable JAYNA GOODE Attending Unavailable REESEAIDA AREVALO Referring Unavailtori e MARY ANN, AIDA Attending Unavailabl e Kat, Amalia Attending Unavailable Kat, Amalia Attending Unavailable Kat, Amalia Attending Unavailable Kat, Amalia Attending Unavailable Lev DARPER, Primary Care Provider Ariella Mathis DO Unavailable Tapan Zazueta MD Primary Care Provider Mary Ann BRANDT, Aida Unavailable Lev DRAPER, Primary Care Provider [phone] Unavailable Unavailable Unavailable Allergies Allergy ClassificationReported Allergen(s)Allergy TypeDate of OnsetReaction(s) Facility (20 sources)fentaNYL; Translations: [fentanyl]Drug Aztykpj78-32-8480 Hallucinations (finding)[facility] (1 source)linezolid; Translations: [LINEZOLID]Drug Ukvdqst22-34-7940[facility] (20 sources)Vancomycin; Translations: [VANCOMYCIN]Drug Uggiuxu41-05-3833Avunvqi [facility] (17 sources)DENIES METAL SENSITITIVITYPropensity to adverse [id number] Unknown, Unknown ReactionK[facility] Medications Current Medications MedicationDrug Class(es)DatesSig (Normalized)Sig (Original)30 ACTUAT fluticasone furoate 0.2 MG/ACTUAT / umeclidinium 0.0625 MG/ACTUAT / vilanterol 0.025 MG/AC TUAT Dry Powder Inhaler [Trelegy] (2 sources)take 1 puff(s) by inhalation once dailyTrelegy Ellipta 200-62.5-25 MCG/INH 1 puff Inhalation Once a day Activealbuterol 0.83 mg/ml inhalation solution (20 sources)beta2-Adrenergic AgonistStart: 20-46-0386gmolenonf 0.083% Inh Meagan 3 mL 2.5 mg, 3 mL Start Date: 10/15/24 Status: Ordered Repeat number: 1Start: 61-17-9990Sddzfvrkw Sulfate 2.5 mg /3 mL (0.083 %) [...] 14, 2024 12:00am Complies with drug therapyStart: 78-63-2397tcsf 1 puff(s) by inhalation every four to six hoursAlbuterol Sulfate Active 1 PUFF Inhalation EVERY 4-6 HOURS July 07, 2017 10:17amStart: 07-07-2017 End: 03-87-0540jshw 1 puff(s) by inhalation every four to six hours as needed for wheezingAlbuterol Sulfate 90 mcg/actuation Hfa Aerosol Inhaler Discontinued 1 PUFF INHALATION EVERY 4-6 HOURS as needed for Shortness Of Breath Or Wheezing July 07, 2017 12:00am March 14, 2024 10:40amStart: 07-07-2017 End: 94-98-6631hqqt 1 puff(s) by inhalation every four to six hoursAlbuterol Sulfate Discontinued 1 PUFF INHALATION EVERY 4-6 HOURS July 07, 2017 12:00am March 14, 2024 10:40amStart: 91-14-2378qpfr 1 puff(s) by inhalation every four to [...] tablet (20 sources)gamma-Aminobutyric Acid-ergic AgonistStart: 03-14-2024 End: 18-04-8348nlji 1 tablet by mouth three times dailyBaclofen 10 mg tablet Active 10 MG PO Three times daily March 14, 2024 12:00am Complies with drug the rapytake 1 tablet by mouth every eight hoursBaclofen 5 MG 1 tablet as needed Orally Three times a day Iipzop758 actuat budesonide 0.16 mg/actuat / formoterol fumarate 0.0048 mg/actuat / glycopyrrolate 0.009 mg/actuat metered dose inhaler (20 sources)Corticosteroid, beta2-Adrenergic AgonistStart: 07-17-2025 Jbnnksnjju-Rpzpdsam-Ttrmovzsgv (Breztri Aerosphere) 160-9-4.8 mcg/actuation HFA aerosol inhaler Active 2 INH INHALATION Twice daily July 17, 2025 12:00am Complies with drug therapyStart: 75-90-0464Szfqolw Aerosphere 160-9-4.8 MCG/ACT aerosol every 12 (twelve) hours 02/24/2025 Djmszu78 hr buPROPion hydrochloride 150 mg extended release oral tablet (17 sources)AminoketoneStart: 96-31-9344yvno 1 tablet by mouth once daily in the morningBupropion Hcl (Wellbutrin Xl) 150 mg tablet extended release 24 hr Active 150 MG PO Every morning July 17, 2025 12:00am Complies with drug therapyStart: 04-23-2025 End: 60-26-6005dgux 1 tablet by mouth every twenty-four hours in the morning buPROPion XL (Wellbutrin XL) 150 MG 24 hr tablet Indications: Moderate episode of recurrent major depressive disorder (HCC) Take 1 tablet (150 mg) by mouth in the morning. Do not crush, chew, or split. 30 tablet 1 06/18/2025 07/18/2025 Activecholecalciferol 0.025 mg oral capsule (13 sources)Vitamin DStart: 01-25-2024 End: 54-14-9557wvrd 1 capsule by mouth once dailydoxycycline hyclate 100 mg oral capsule (7 sources)Tetracycline-class DrugStart: 01-14-2025 End: 23-96-6100bdje 1 capsule by mouth in the morningdoxycycline (Vibramycin) 100 MG capsule Take 100 mg by mouth in the morning and 100 mg before bedtime. 01/14/2025 01/16/2025 Discontinued (Therapy completed)Start: 11-18-2024 End: 50-03-5589njvj 1 capsule by mouth in the morningdoxycycline (Vibramycin) 100 MG capsule Take 100 mg by mouth in the morning and 100 mg before bedtime. 11/18/2024 11/28/2024 ActiveStart: 37-20-4968tpik 1 tablet by mouth once daily doxycycline (Vibra-Tabs) 100 MG tablet Take 100 mg by mouth Daily 06/10/2024 ActiveEnsifentrine (3 sources)Start: 01-16-1306egdd 3 mg by inhalation twice dailyEnsifentrine (Ohtuvayre) 3 mg/2.5 mL suspension for nebulization Active 3 MG INHALATION Twice dailySept2024 12:00am Complies with drug therapyEnsifentrine (Ohtuvayre) 3 MG/2.5ML suspension (18 sources)Start: 93-61-3164Mthbrgfbkauf (Ohtuvayre) 3 MG/2.5ML suspension every 12 (twelve) hours 04/02/2025 Activeferrous sulfate 325 mg oral tablet (20 sources)Start: 20-11-4389oybu 1 tablet by mouth once dailyferrous sulfate 325 mg Tab 325 mg = 1 tab(s), Oral, Daily Start Date: 10/15/24 Status: Ordered Repeat number: 1Start: 48-41-7484Ebdqcnl Sulfate 325 mg (65 mg iron) tablet Active 325 MG PO Every 48 hours March 14, 2024 12:00am Complies with drug therapy take 1 tablet by mouth every other dayIron 325 (65 Fe) MG 1 tablet Orally every other day Activefluconazole 150 mg oral tablet (1 source)Azole AntifungalStart: 09-10-2024 End: 97-52-5201gylt 1 tablet by mouth oncefluconazole (Diflucan) 150 MG tablet Indications: Vaginal guero Take 1 tablet (150 mg) by mouth 1(one) time for 1 dose 1 tablet 09/10/2024 09/10/2024 Activefluticasone propionate 0.05 mg/actuat metered dose nasal spray (13 sources)CorticosteroidStart: 04-96-9027xavt 1 spray(s) nasal route once dailyFluticasone Propionate (Flonase Allergy Relief) 50 mcg/actuation spray,suspension Active 2 SPRAY INTRANASAL Daily August 01, 2025 12:00am administer into each nostril Complies with drug therapyStart: 90-38-3018oxdy 2 spray(s) nasal route once dailyfluticasone (Flonase) 50 MCG/ACT nasal spray Administer 2 sprays into each nostril Daily 05/01/2025tivetake 2 spray(s) nasal route once dailyFlonase Allergy Relief 50 MCG/ACT 2 spray in each nostril Nasally Once a day Activefluticasone furoate 0.1 MG/ACTUAT / umeclidinium 0.0625 MG/ACTUAT / vilanterol 0.025 MG/ACTUAT Dry Powder Inhaler (6 sources)Anticholinergic, Corticosteroid, beta2-Adrenergic AgonistStart: 53-41-0255jhubshpdnpd/umeclidinium/vilanterol 200 mcg-62.5 mcg-25 mcg/inh inhalation powder inh, Inhalation, Daily Start Date: 10/15/24 Status: Ordered Repeat number: 1Start: 77-66-2095cmlkuagrozn/umeclidinium/vilanterol 200 mcg- 62.5 mcg-25 mcg/inh inhalation powder inh, Inhalation, Daily Start Date: 10/15/24 Status: QajchuaOdyrbrivmzf-Qhhxszmgd-Caktgv (Trelegy Ellipta) 200-62.5-25 MCG/ACT aerosol powder (20 sources) End: 87-92-3044qobv 1 puff(s) by mouth in the morning Nitkanjpuxn-Aanctuabr-Yhwwmk (Trelegy Ellipta) 200-62.5-25 MCG/ACT aerosol powder Take 1 puff by mouth in the morning. 04/09/2025 Discontinued (Ineffective)take 1 puff(s) by mouth in the bkkgunhXfnysasbwnm-Qizanrsmc-Buotau (Trelegy Ellipta) 200-62.5-25 MCG/ACT aerosol powder Take 1 puff by mouth in the morning. Activefurosemide 20 mg oral tablet (20 sources)Loop DiureticStart: 04-10-2024 End: 34-55-8083qurm 1 tablet by mouth once dailyFurosemide (Lasix) 20 mg tablet Active 20 MG PO Daily May 29, 2024 7:40am Complies with drug therapytake 1 tablet by mouth every twenty-four hoursFurosemide 20 MG 1 tablet Orally Once a day Activegabapentin 300 mg oral capsule (1 source)Anti-epileptic Agenttake 1 capsule by mouth every twelve hours Gabapentin 300 MG 1 capsule Orally twice a day Rjknct17 hr guaiFENesin 600 mg extended release oral tablet (20 sources)Start: 69-50-5194xynx 1 tablet by mouth every twelve hours [...] 0.05 mg/ml ophthalmic solution (20 sources)Prostaglandin AnalogStart: 76-78-2292Lkkeyfx 0.005% Soln-Opth 1 drop(s) Start Date: 10/15/24 Status: Ordered Repeat number: 1Start: 09-05-2024 take 1 drop(s) into the eye(s) once daily at bedtimeLatanoprost 0.005 % drops Active 1 DROPS EYE-BOTH Daily at bedtime September 05, 2024 12:00am Complies with drug therapyStart: 55-24-4678aevi 1 drop(s) into the eye(s) once daily at bedtimeLatanoprost 0.005 % drops Active 1 DROPS EYE-BOTH Daily at bedtime September 04, 2024 11:00pmStart: 50-57-4897cbpk 1 drop(s) into the eye(s) once daily at bedtimeLatanoprost Active 1 DROPS EYE-BOTH Daily at bedtime September 05, 2024 12:00amStart: 44-58-8801qlhdkznkyzt (Xalatan) 0.005 % ophthalmic solution 06/18/2024 ActiveStart: 93-40-0672scqy 1 drop(s) into the eye(s) at bedtimelatanoprost (Xalatan) 0.005 % ophthalmic solution INSTILL 1 DROP INTO EACH EYE AT BEDTIME 06/18/2024 Activelevocetirizine dihydrochloride 5 mg oral tablet (1 source)Histamine-1 Receptor Antagonisttake 1 tablet by mouth every twenty- four hoursLevocetirizine Dihydrochloride 5 MG 1 tablet in the evening Orally Once a day ActivelevoFLOXacin 750 mg oral tablet (4 sources)Quinolone AntimicrobialStart: 01-15-2025 End: 91-67-4642sbrk 1 tablet by mouth once dailylevoFLOXacin (Levaquin) 750 MG tablet Indications: Pneumonia due to infectious organism, unspecified laterality, unspecified part of lung Take 1 tablet (750 mg) by mouth Daily for 7 days Discontinue doxycycline script 7 tablet 01/15/2025 01/22/2025 ActiveStart: 88-54-4619bgnm 1 tablet by mouth once dailylevoFLOXacin (Levaquin) 750 MG tablet Take 750 mg by mouth Daily 06/10/2024 Activemagnesium oxide 400 mg oral tablet (20 sources)Start: 08-09-2022 End: 59-71-9904donk 1 tablet by mouth once dailyMAGnesium-Oxide 400 (240 Mg) MG tablet Take 400 mg by mouth Daily 04/10/2024 Npsjea29 hr mirabegron 25 mg extended release oral tablet (1 source)beta3-Adrenergic AgonistStart: 07-22-2025 End: 17-12-7209fxry 1 tablet by mouth once dailyMyrbetriq 25 mg oral tablet, extended release 25 mg = 1 tab(s), Oral, Daily, X 30 day(s), # 30 tab(s), Refills(s) 4, Pharmacy: [id number], 163, cm, 07/22/25 8:42:00 EDT, Height/Length Dosing, 105.1, kg, 07/22/25 8:42:00 EDT, Weight Dosing Start Date: 07/22/25 Stop Date: 12/19/25 Status: Ordered Quantity: 30.0 Unit: tab(s) Repeat number: 5 Indications: Mixed incontinence; Overactive bladder;montelukast 10 mg oral tablet (20 sources)Leukotriene Receptor AntagonistStart: 70-00-7143fukk 1 tablet by mouth once dailyMontelukast (Singulair) 10 mg tablet Active 10 MG PO Daily March 14, 2024 12:00am Complies with drugtherapyMulti For Her 50+ - (11 sources)Multi For Her 50+ - as directed Orally ONCE A DAY ActiveMulti For Her 50+ - as directed Orally ActiveMulti Vitamins oral tablet (6 sources)Start: 50-62-4251xjih 1 tablet by mouth once dailyMulti Vitamins oral tablet Oral, Daily, Refill(s) 0 Start Date: 10/15/24 Status: Ordered Repeat number: 1Start: 45-25-2203Gfhut Vitamins oral tablet Oral, Daily, Refill(s) 0 [...] (5 sources)RNA Synthetase Inhibitor AntibacterialStart: 05-19-2025 End: 15-99-3726cusunejoh (Bactroban) 2 % ointment Indications: Skin pustule Apply topically 3 (three) times a day as needed (skin pustules) for up to 10 days 22 g 06/05/2025 06/15/2025 Activenystatin 084648 unt/ml topical cream (7 sources)Polyene AntifungalStart: 05-19-2025 End: 62-25-0874pbcoexkf (Mycostatin) cream Indications: Candidiasis of breast Apply topically every 12 (twelve) hours if needed (yeast dermatitis) for up to 14 days 60 g 1 05/19/2025 06/02/2025 ActiveStart: 02-17-2025 End: 68-39-3135kqmygthd (Mycostatin) cream Indications: Candidiasis Apply topically in the morning and before bedtime. Do all this for 14 days. Apply to affected area. 60 g 1 02/17/2025 03/03/2025 Activeomeprazole 20 mg delayed release oral capsule (20 sources)Proton Pump InhibitorStart: 02-26-2025 End: 53-23-8916qjnc 1 capsule by mouth onceomeprazole (PriLOSEC) [address] capsule Indications: Gastroesophageal reflux disease without esophagitis Take 1 capsule (20 mg) by mouth every 12 (twelve) hours 180 capsule 1 02/26/2025 Active Start: 10-15-2024 End: 31-42-0081mlvirlbumg 20 mg Cap-DR 20 mg = 1 cap(s) Start Date: 10/15/24 Status: Ordered Repeat number: 1Start: 09-03-2024 End: 03-01-4973vluy 1 capsule by mouth onceomeprazole (PriLOSEC) [address] capsule Indications: Gastroesophageal reflux disease without esophagitis Take 1 capsule (20 mg) by mouth every 12 (twelve) hours 180 capsule 09/03/2024 12/02/2024 DiscontinuedStart: 06-03-2024 End: 44-41-4281wlag 1 capsule by mouth every twelve hoursomeprazole (PriLOSEC) [address] capsule Indications: Gastroesophageal reflux disease without esophagi tis TAKE 1 CAPSULE BY MOUTH EVERY 12 HOURS 180 capsule 06/03/2024 09/03/2024 Discontinued (Reorder)Start: 44-17-4919alit 1 capsule by mouth twice daily Omeprazole 20 mg capsule,delayed release(DR/EC) Active 20 MG PO Twice daily March 14, 2024 12:00am Complies with drug therapyStart: 07-07-2017 End: 37-17-6150vbyl 1 tablet by mouth once dailyOmeprazole 20 [...] tablet (20 sources)Serotonin Reuptake InhibitorStart: 01-16-2025 End: 25-38-5140frma 1 tablet by mouth once dailyParoxetine Hcl (Paxil) 40 mg tablet Active 40 MG PO Daily July 17, 2025 12:00am Complies with drug therapyStart: 03-14-2024 End: 47-68-2549oviz 1 tablet by mouth once dailyParoxetine Hcl 30 mg tablet Discontinued 30 MG PO Daily March 14, 2024 12:00am July 17, 2025 6:59am Start: 07-07-2017 End: 66-33-7227vibc 1 tablet by mouth once dailyParoxetine Hcl (Paxil) 20 mg Tablet Discontinued 20 MG PO Daily July 07, 2017 12:00am March 14, 2024 10:39amPARoxetine (PAXIL) 40 mg tablet Take 40 mg by mouth. 0 ActiveComment on above:Take 40 mg by mouth.potassium chloride 20 meq extended release oral tablet (15 sources)Start: 07-22-2025 End: 62-26-0819abol 1 tablet by mouth once daily at mealtimePotassium Chloride 20 mEq tablet extended release Active 20 MEQ PO Daily August 08, 2025 6:27am take with food Complies with drug therapyStart: 21-00-2559vfxy 1 tablet by mouth every twenty-four hoursPotassium Chloride ER 20 MEQ 1 tablet with food Orally Once a day for 90 day(s) Jul, ActiveStart: 35-32-8637rjwz 1 tablet by mouth every twelve hoursPotassium Chloride ER 20 MEQ 1 tablet with food Orally Twice a day for 90 days Jul, Activepramipexole dihydrochloride 0.25 mg oral tablet (20 sources)Nonergot Dopamine AgonistStart: 16-97-8236rsswwbsulln 0.25 mg Tab mg tab(s), Oral Start Date: 10/15/24 Status: Ordered Repeat number: 1Start: 03-14-2024 End: 96-66-1450rnty 1 tablet by mouth once daily at bedtimePramipexole 0.25 mg tablet Active 0.25 MG PO Daily at bedtime March 14, 2024 12:[address] suad pizanotake 1 tablet by mouth every twenty-four hoursPramipexole Dihydrochloride 0.25 MG 1 tablet Orally Once a day ActivepredniSONE 10 mg oral tablet (20 sources)Start: 01-14-2025 End: 74-78-1422dnwr 1 tablet by mouth once dailypredniSONE (Deltasone) 10 MG tablet Take 10 mg by mouth Daily Follow instructions on label 01/14/2025 01/25/2025 ActiveStart: 11-19-2024 End: 11-31-0633akbtwaICCI (Deltasone) 10 MG tablet Take 10 mg by mouth See administration instructions 11/19/2024 12/20/2024 ActiveStart: 11-12-2024 End: 33-13-1155zmxj 3 tablets by mouth once dailypredniSONE (Deltasone) 20 MG tablet Indications: Chronic obstructive pulmonary disease with acute lower respiratory infection (CMS/HCC) Take 3 tablets (60 mg) by mouth Daily for 5 days 15 tablet 11/12/2024 11/17/2024 ActiveStart: 51-36-8198tceo 1 tablet by mouth once dailypredniSONE (Deltasone) 20 MG tablet Take 20 mg by mouth Daily 06/10/2024 Activepregabalin 75 mg oral capsule (20 sources)Start: 03-14-2024 End: 04-16-4902qdmx 1 capsule by mouth twice dailyPregabalin 75 mg capsule Active 75 MG PO Twice daily March 14, 2024 12:00am Complies with drug therapy Sodium Chloride (20 sources)Start: 31-33-0511fjeqny chloride Start Date: 10/15/24 Status: Ordered Repeat number: 1Start: 35-21-0258nytvjb chloride Start Date: 10/15/24 Status: OrderedStart: 27-81-6062Uuebmb Chloride 0.9 % solution for nebulization Active ML INHALATION September 05, 2024 12:00am Complies with drug therapyStart: 82-26-4234Dlpwzq Chloride Active ML INHALATION September 05, 2024 12:00amStart: 41-92-5270wavegz chloride 0.9 % nebulizer solution Take 3 mL by nebulization in the morning and 3 mL before bedtime. 04/22/2024 Activesolifenacin succinate 10 mg oral tablet (20 sources)Cholinergic Muscarinic AntagonistStart: 01-13-2025 End: 30-67-7460qnhg 1 tablet by mouth once dailysolifenacin (VESIcare) 10 MG tablet Indications: Urge incontinence Take 1 tablet (10 mg) by mouth Daily 90 tablet 01/13/2025 04/09/2025 Discontinued (Ineffective)Start: 54-65-9120bprj 1 tablet by mouth once dailysolifenacin (VESIcare) 10 MG tablet Indications: Urge incontinence Take 1 tablet by mouth once daily 90 tablet 10/14/2024 ActiveStart: 89-13-1439xzjh 1 tablet by mouth once dailysolifenacin (VESIcare) 10 MG tablet Indications: Urge incontinence Take 1 tablet (10 mg) by mouth Daily 90 tablet 07/17/2024 ActiveStart: 02-19-2024 End: 71-79-2213yauv 1 tablet by mouth once dailySolifenacin 10 mg tablet Discontinued 10 MG PO Daily March 14, 2024 12:00am July 17, 2025 7:01am take 1 tablet by mouth every twenty-four hoursVESIcare 10 MG 1 tablet Orally Once a day ActivetraMADol hydrochloride 50 mg oral tablet (20 sources)Opioid AgonistStart: 78-51-0881iwfUJEHS 50 mg Tab 50 mg = 1 tab(s), Oral Start Date: 10/15/24 Status: Ordered Repeat number: 1Start: 01-23-2024 End: 66-88-9620mbyw 1 tablet by mouth every twelve hourstraMADol (Ultram) 50 MG tablet Take 50 mg by mouth every 12 (twelve) hours 01/23/2024 04/09/2025 Dis continued (Therapy completed)traZODone hydrochloride 100 mg oral tablet (20 sources)Serotonin Reuptake InhibitorStart: 10-15-2024 End: 22-93-7397aaow 1 tablet by mouth once daily at bedtime as neededTrazodone 100 mg tablet Active 100 MG PO Daily at bedtime as needed July 17, 2025 12:00am Complies with drug therapyStart: 16-32-0926kiyb 1 tablet by mouth at bedtimetraZODone (Desyrel) 100 MG tablet Indications: Moderate episode of recurrent major depressive disorder (HCC) (CMS/HCC) Take 1 tablet (100 mg) by mouth at bedtime 30 tablet 2 07/17/2024 ActiveStart: 03-14-2024 End: 02-55-2765ghbe 1 tablet by mouth once daily at bedtimeTrazodone 100 mg tablet Discontinued 100 MG PO Daily at bedtime March 14, 2024 12:00am July 17, 2025 7:00amStart: 07-07-2017 End: 46-20-1567deuj 1 tablet by mouth at bedtimeTrazodone 50 mg Tablet Discontinued 50 MG PO Bedtime July 07, 2017 12:00am March 14, 2024 10:38am Comment on above:Take 50 mg by mouth.Trelegy Ellipta 200-62.5-25 MCG/INH (5 sources)take 1 puff(s) by inhalation once dailyTrelegy Ellipta 200-62.5-25 MCG/INH 1 puff Inhalation Once a day Oewoei95 hr trospium chloride 60 mg extended release oral capsule (20 sources)Cholinergic Muscarinic AntagonistStart: 20-87-8705gvvy 1 capsule by mouth once daily 1 hour(s) before mealtimeTrospium 60 mg capsule,extended release 24hr Active 60 MG PO Daily July 17, 2025 12:00am must be taken on empty stomach at least 1 hour before a meal/food with water only Complies with drug therapyStart: 11-06-2024 End: 11-45-4748wibo 1 tablet by mouth twice dailytrospium 20 mg oral tablet 20 mg = 1 tab(s), Oral, BID, # 60 tab(s), Refills(s) 11, Pharmacy: [id number], 163, cm, 10/15/24 14:36:00 EST, Height/Length Dosing, 107, kg, 10/15/24 14:36:00 EST, Weight Dosing Start Date: 11/06/24 Stop Date: 10/21/25 Status: Ordered Quantity: 60.0 Unit: tab(s)Repeat number: 12valACYclovir 1000 mg oral tablet (2 sources)Herpesvirus Nucleoside Analog DNA Polymerase Inhibitor, Herpes Simplex Virus Nucleoside Analog DNA Polymerase Inhibitor, Herpes Zoster Virus Nucleoside Analog DNA Polymerase InhibitorStart: 11-12-2024 End: 78-89-7239gkye 1 tablet by mouth in the morningvalACYclovir [...] Hfa Aerosol Inhaler (1 source)Start: 07-07-2017 End: 42-40-7330brci 1 puff(s) by inhalation every four to six hours as needed for wheezingAlbuterol Sulfate 90 mcg/actuation Hfa Aerosol Inhaler Discontinued 1 PUFF INHALATION EVERY 4-6 HOURS as needed for Shortness Of Breath Or Wheezing July 06, 2017 11:00pm March 14, 2024 9:40amamLODIPine 2.5 mg oral tablet (17 sources)Dihydropyridine Calcium Channel BlockerStart: 07-07-2017 End: 21-83-2834zkog 1 tablet by mouth twice dailyAmlodipine (Norvasc) [...] mg oral tablet (9 sources)BenzodiazepineStart: 07-07-2017 End: 04-23-8942myyl 1 tablet by mouth once dailyClonazepam 0.5 mg Tablet Discontinued 0.5 MG PO Daily July 07, 2017 12:00am March 14, 2024 10:40am Comment on above:Take 0.5 mg by mouth.cyclobenzaprine hydrochloride 10 mg oral tablet (9 sources)Muscle RelaxantStart: 07-07-2017 End: 76-58-6036uvht 1 tablet by mouth once dailyCyclobenzaprine 10 mg Tablet Discontinued 10 MG PO Daily July 07, 2017 12:00am March 14, 2024 10:40am Comment on above:Take 10 mg by mouth.famotidine 40 mg oral tablet (9 sources)Histamine-2 Receptor AntagonistStart: 07-07-2017 End: 86-71-6659gtvl 1 tablet by mouth at bedtimeFamotidine (Pepcid) 40 mg Tablet Discontinued 40 MG PO Bedtime July 07, 2017 12:00am 2022 8:02amfamotidine (PEPCID) 20 mg tablet Take 20 mg by mouth. 0 ActiveComment on above:Take 20 mg by mouth.Sovrqvbvzgs-Tghbqatpl-Brhirgkl (13 sources)Start: 03-14-2024 End: 43-98-5463Bntmwkomqcr-Umeclidin-Vilanter (Trelegy Ellipta) 200-62.5-25 mcg blister with device Discontinued 1INH INHALATION Daily March 14, 2024 12:00am July 17, 2025 6:56amStart: 11-17-7081Juhppjrmtce-Umeclidin-Vilanter (Trelegy Ellipta) 200-62.5-25 mcg blister with device Active 1 INH INHALATION Daily March 13, 2024 11:00pmStart: 42-54-6115Hcfokbtphvc-Umeclidin-Vilanter (Trelegy Ellipta) 200-62.5-25 mcg blister with device Active 1 INH INHALATION Daily March 14, 2024 12:00amStart: 12-08-2022 End: 76-87-9680Xwdepddofth-Umeclidin-Vilanter (Trelegy Ellipta) 200-62.5-25 mcg blister with device Discontinued 1INH INHALATION As Directed December 08, 2022 12:00am March 14, 2024 9:40amStart: 12-08-2022 End: 10-86-7229Xqmnwnqmhnr-Umeclidin-Vilanter (Trelegy Ellipta) 200-62.5-25 mcg blister with device Discontinued 1INH INHALATION As Directed December 08, 2022 1:00am March 14, 2024 10:40amStart: 39-30-3209Lownyiygaso-Umeclidin-Vilanter (Trelegy Ellipta) 200-62.5-25 mcg blister with device Active 1 INH INHALATION As Directed December 08, 2022 12:00amhydroCHLOROthiazide 25 mg oral tablet (15 sources)Thiazide DiureticStart: 12-08-2022 End: 63-55-8218luio 1 tablet by mouth once dailyHydrochlorothiazide 25 mg tablet Discontinued 25 MG PO Daily December 08, 2022 1:00am March 14, 2024 10:40am hydroCHLOROthiazide 25 mg / spironolactone 25 mg oral tablet (9 sources)Thiazide Diuretic, Aldosterone AntagonistStart: 38-52-0089szbu 1 tablet by mouth oncespironolactone-hctz 25/25 (ALDACTAZIDE) 25-25 mg per tablet Take 25 mg by mouth. 0 01/03/2019 ActiveStart: 09-15-2017 End: 89-75-9439Vokkjryxihmju-Hydrochlorothiaz 0 tablet Discontinued 1 TAB PO Daily September 15, 2017 1:00am December 08, 2022 8:04amComment on above:Take 25 mg by mouth.200 actuat ipratropium bromide 0.017 mg/actuat metered dose inhaler (12 sources)AnticholinergicStart: 07-07-2017 End: 47-91-6858dfff 1 puff(s) by inhalation twice dailyIpratropium Camino (Atrovent Hfa) 17 mcg/actuation Hfa Aerosol Inhaler Discontinued 2 PUFF INHALATI ON Twice daily July 07, 2017 12:00am March 14, 2024 10:40amtake 2 puff(s) by inhalation four times dailyAtrovent HFA 17 MCG/ACT 2 puffs Inhalation Four times a day Activelisinopril 40 mg oral tablet (8 sources)Angiotensin Converting Enzyme InhibitorStart: 07-07-2017 End: 32-40-5852zjbb 0.5 tablet by mouth twice dailyLisinopril 40 mg Tablet Discontinued 0.5 TAB PO Twice daily July 07, 2017 12:00am December 08, 2022 8:04amloratadine 10 mg oral tablet (8 sources)Start: 07-07-2017 End: 14-71-0746ltlq 1 tablet by mouth once dailyLoratadine 10 mg Tablet Discontinued 10 MG PO Daily July 07, 2017 12:00am March 14, 2024 10:41am losartan potassium 50 mg oral tablet (18 sources)Angiotensin 2 Receptor BlockerStart: 04-10-2024 End: 89-07-2338szhe 1 tablet by mouth twice dailyLosartan 50 mg tablet Discontinued 50 MG PO Twice daily 180 April 10, 2024 4:50pm September 05, 2024 1:09pmStart: 04-10-2024 End: 83-67-1862eeie 1 tablet by mouth once dailyLosartan 50 mg tablet Discontinued 50 MG PO Daily 90 April 10, 2024 12:00am April 10, 2024 4:49pmtake 1 tablet by mouth in the morning, then take 1 tablet by mouth twice daily in the eveningLosartan Potassium 50 MG 1 tablet AM / 1 tablet PM Orally bid for 90 days ActiveMagnesium (7 sources)Start: 12-08-2022 End: 94-26-5919lptw 1 tablet by mouth once dailyMagnesium 200 mg Tablet Discontinued 200 MG PO Daily December 08, 2022 1:00am March 14, 2024 10:34am Start: 12-08-2022 End: 80-17-8430liqu 1 tablet by mouth once dailyMagnesium 200 mg Tablet Discontinued 200 MG PO Daily December 08, 2022 12:00am March 14, 2024 9:34am Start: 12-08-2022 End: 87-86-2208siko 200 mg by mouth once dailyMagnesium Discontinued 200 MG PO Daily December 08, 2022 1:00am March 14, 2024 10:34amStart: 92-00-0161giil 200 mg by mouth once dailyMagnesium Active 200 MG PO Daily December 08, 2022 12:00ammethylPREDNISolone (18 sources)CorticosteroidStart: 88-89-1791Rtzx-Medrol 40 mg Jul, 1 mL Start: 27-93-7400Xncs-Medrol 40 mg Jan, 1 mLpotassium 99 mg extended release oral tablet (7 sources)Start: 12-08-2022 End: 91-90-9437rvrc 1 tablet by mouth twice dailyPotassium 99 mg Tablet Discontinued 99 MG PO Twice daily December 08, 2022 1:00am March 14, 2024 10: 41am Problems Active Problems Problem ClassificationProblemDateDocumented DateEpisodic/ChronicAsthma (20 sources)Asthma; Translations: [Unspecified asthma, uncomplicated]Onset: 10-04-2023 Resolved: 950478-50-9651VvpqblkArvxzq of colon (20 sources)History of malignant neoplasm of colon; Translations: [History of large intestine malignacy]Onset: 07-08-2022 Resolved: 99-35-5141UojkoxskQoooxs of rectum and anus (20 sources)Malignant neoplasm of rectosigmoid junction; Translations: [Malignant neoplasm of rectosigmoid junction]Onset: hronic Cancer of rectum and anus (4 sources)History of malignant neoplasm of anus; Translations: [Personal history of other malignant neoplasm of rectum, rectosigmoid junction, and anus] EpisodicChronic kidney disease (20 sources)Chronic kidney disease stage 3; Translations: [Chronic kidney disease, stage 3 (moderate)]Onset: 913858-62-2365EgnndlzDkvfgwv obstructive pulmonary disease and bronchiectasis (20 sources)Chronic obstructive lung disease; Translations: [Chronic obstructive pulmonary disease, unspecified]Onset: 308381-01-0078QyzgtyrMmtxdlh on above:O2@3L continuousChronic obstructive pulmonary disease and bronchiectasis (1 source)Chronic obstructive pulmonary disease and bronchiectasisComplication of device; implant or graft (11 sources)Prosthetic joint loosening; Translations: [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, initial encounter]EpisodicCongestive heart failure; nonhypertensive (20 sources)Chronic heart failure co-occurrent with normal ejection fraction; Translations: [Chronic diastolic (congestive) heart failure]Onset: 10-04-2023 30-51-3483FghqetmDmlynityok and other anemia (11 sources)Anemia of renal disease; Translations: [Anemia in chronic kidney disease]ChronicDiseases of white blood cells (20 sources)Leukocytosis; Translations: [Elevated white blood cell count, unspecified]Onset: 672018-99-8491OoezwycCskofnwzl of lipid metabolism (20 sources)Hyperlipidemia; Translations: [Hyperlipidemia, unspecified]Onset: 988851-80-0894JeivzwlItiwhiafii disorders (20 sources)Gastroesophageal reflux disease; Translations: [Gastro-esophageal reflux disease without esophagitis]Onset: 127222-76-9897IftfscfTwibvuhaz hypertension (20 sources)Hypertensive disorder; Translations: [Essential (primary) hypertension]Onset: 04-01-2014 Resolved: 502521-77-7788UmhtwhnFslgv and electrolyte disorders (16 sources)Hypokalemia; Translations: [Hypokalemia]Onset: 11-17-2021 Resolved: 35-82-0377KlrgcjfaUmpdgvloicfwtukg hemorrhage (11 sources)Hemorrhage of rectum and anus; Translations: [Hemorrhage of rectum and anus]EpisodicGenitourinary symptoms and ill-defined conditions (20 sources)Urge incontinence of urine; Translations: [Urge incontinence]Onset: 706172-51-4612MtwwvpdHgrvczwpexeo with complications and secondary hypertension (20 sources)Chronic kidney disease due to hypertension; Translations: [Hypertensive chronic kidney disease withstage 1 through stage 4 chronic kidney disease, or unspecified chronic kidney disease]Onset: 11-17-2021 Resolved: 83-86-4822BckcgutUklv disorders (20 sources)Depressive disorder; Translations: [Depression]Onset: 10-04-2023 39-58-6512LvmpnlnGdzagf and vomiting (4 sources)Nausea; Translations: [Nausea]78-65-6541BwklbwbgKyjssmnyvei deficiencies (20 sources)Vitamin D deficiency; Translations: [Vitamin D deficiency, unspecified]Onset: 485749-57-5738UkprzszLnrltvzlcgnczq (20 sources)Arthritis of left hip; Translations: [Unilateral primary osteoarthritis, left hip]Onset: 10-17-2018 Resolved: 356268-53-8982YepcdosLgzmj aftercare (11 sources)Patient encounter status; Translations: [Aftercare following joint replacement surgery]ChronicOther and unspecified benign neoplasm (2 sources)Nevus lipomatosus cutaneous superficialis; Translations: [Benign lipomatous neoplasm of skin and subcutaneous tissue of unspecified sites] 45-58-8333NdablqjsZygti connective tissue disease (11 sources)History of repair of hip joint; Translations: [Presence of left artificial hip joint]ChronicOther connective tissue disease (2 sources)History of right total knee replacement; Translations: [Presence of right artificial knee joint]33-98-4722YhraryoSsosv diseases of bladder and urethra (1 source)Detrusor overactivity; Translations: [Overactive bladder]Onset: 05-67-5148FbngvusRnjrx diseases of bladder and urethra (1 source)Overactive -92-5674XruggozOmzrj diseases of kidney and ureters (11 sources)Secondary hyperparathyroidism; Translations: [Secondary hyperparathyroidism of renal origin]ChronicOther diseases of kidney and ureters (5 sources)Secondary hyperparathyroidism of renal origin; Translations: [SEC HYPERPARATHYROIDISM RENAL ORIGN]Onset: 11-17-2021 Resolved: 38-89-5586GdrptymHvtux gastrointestinal disorders (5 sources)Diarrhea; Translations: [Diarrhea, unspecified]80-07-5443Updfcgez Other hereditary and degenerative nervous system conditions (20 sources)Restless legs; Translations: [Restless legs syndrome]Onset: 833339-46-7088SdjlrnqIedhh lower respiratory disease (2 sources)Other forms of dyspnea; Translations: [Other forms of dyspnea]Onset: 11-25-1158PeltpczzWqpfc nervous system disorders (20 sources)Chronic pain; Translations: [Other chronic pain]Onset: 12-05-2023 68-55-8929HylqsjcGiidg nervous system disorders (20 sources)Critical illness myopathy; 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] Onset: 780098-18-2931XvugelpEylou non-epithelial cancer of skin (6 sources)Squamous cell carcinoma of skin of trunk; Translations: [Squamous cell carcinoma of skin of other part of trunk]46-81-9719TgbzjulkVfigq non- traumatic joint disorders (20 sources)Knee pain; Translations: [Pain in right knee]EpisodicOther non- traumatic joint disorders (1 source)Pain in right hip; Translations: [PAIN IN RIGHT HIP]Onset: 03-27-2023 EpisodicOther non-traumatic joint disorders (2 sources)Pain in right knee; Translations: [Pain in joint, lower leg] 01-78-3513SfirxvwrAxxbh nutritional; endocrine; and metabolic disorders (11 sources)Body mass index 30+ - obesity; Translations: [Body mass index (BMI) 36.0-36.9, adult]ChronicOther nutritional; endocrine; and metabolic disorders (16 sources)Hypomagnesemia; Translations: [Hypomagnesemia]73-43-0348WtalpwiWznad nutritional; endocrine; and metabolic disorders (7 sources)Hypomagnesemia; Translations: [Disorders of magnesium metabolism] Onset: 84-20-9483SnoqwxvRjvlo nutritional; endocrine; and metabolic disorders (20 sources)Body mass index 40+ - severely obese; Translations: [Morbid (severe) obesity due to excess calories]Onset: 117648-29-9187RhpasiuWylne nutritional; endocrine; and metabolic disorders (20 sources)Obesity caused by energy imbalance; Translations: [Morbid (severe) obesity due to excess calories]Onset: 213207-75-6080CbokbpbPoyqu nutritional; endocrine; and metabolic disorders (9 sources)Morbid obesity; Translations: [Morbid (severe) obesity due to excess calories]52-96-7368UiltsciRvxgu nutritional; endocrine; and metabolic disorders (5 sources)Hyperuricemia without signs of inflammatory arthritis and tophaceous disease; Translations: [HU W/OSIGNS IA AND TOPHACEOUS DZ]Onset: 11-17-2021 Resolved: 90-27-3682PlkeddamDumxs skin disorders (4 sources)Seborrheic keratosis; Translations: [Other seborrheic keratosis] 41-83-7128LyzuwtkvUfirt skin disorders (4 sources)Lentiginosis; Translations: [Other melanin hyperpigmentation] 37-83-5326BmtulxtnVjgrd upper respiratory infections (20 sources)Chronic sinusitis; Translations: [Chronic sinusitis, unspecified] Onset: 954056-68-1619SrajwumOiyrjlugu heart disease (20 sources)Secondary pulmonary hypertension; Translations: [Other secondary pulmonary hypertension]Onset: 260167-60-2546WolscymCaffxshavqh failure; insufficiency; arrest (adult) (20 sources)Chronic hypoxemic respiratory failure; Translations: [Chronic respiratory failure with hypoxia]Onset: 120260-16-1479UzmpyauIsshpgctln arthritis and related disease (20 sources)Rheumatoid arthritis; Translations: [Rheumatoid arthritis, unspecified]Onset: 650694-08-4690AbwwkkzEcrgouppeke; intervertebral disc disorders; other back problems (20 sources)Sacroiliitis, not elsewhere classified; Translations: [Herniation of nucleus pulposus of lumbar intervertebral disc]Onset: 05-22-2018 Resolved: 981776-85-8594KgeihgbHdsvlcyjaszm (4 sources)CONTACT W/AND (SUSP) EXPOS COVID-19; Translations: [CONTACT W/AND (SUSP) EXPOS COVID-19]Onset: 76-64-9956Upvadfdvtyyl (4 sources)CHRN KIDNEY DISEASE STG 3 UNSP; Translations: [CHRN KIDNEY DISEASE STG 3 UNSP]Onset: 38-36-7002Pfuwgmyyddis (3 sources)ACUTE COUGH; Translations: [ACUTE COUGH]Onset: 36-29-4299Bfrdfhrzzioi (20 sources)Patient on antidepressant monitoring planOnset: Unclassified (6 sources)Arthropathy of right knee pwann09-11-2932Vsgluueyssqd (6 sources)Displacement of lumbar intervertebral utqc34-89-4012Yvpgyizfqosn (6 sources)Malignant colorectal -35-4167Vodsi infection (1 source)COVID-19; Translations: [COVID-19]Onset: 04-05-2023 Past or Other Problems Problem ClassificationProblemDateDocumented DateEpisodic/ChronicAcute and unspecified renal failure (20 sources)Acute renal failure syndrome; Translations: [Acute kidney failure, unspecified]Onset: 12-28-2023 Resolved: 866645-87-9388ZtqhcntnWchmgmp dysrhythmias (20 sources)Atrial fibrillation; Translations: [Unspecified atrial fibrillation] Onset: 12-05-2023 Resolved: 068873-32-4614JuleewaXzwwokn kidney disease (11 sources)Chronic kidney disease; Translations: [Chronic kidney disease, stage III (moderate)]Onset: 11-17-2021 Resolved: 02-32-0951Smfwczzhpq and other anemia (20 sources)Iron deficiency anemia; Translations: [Iron deficiency anemia, unspecified]Onset: 881888-27-9634EajjdlnxAexmcfbncvhxf and screening for infectious disease (2 sources)Contact with and (suspected) exposure to other viral communicable diseases; Translations: [Encounter for screening for human papillomavirus (HPV)] Onset: 08-30-2021 Resolved: 77-06-2923VelutmzqNdgbnvi and fatigue (20 sources)Malaise; Translations: [Other malaise]Onset: 12-05-2023 Resolved: 030524-41-3762XfijsouuTbep disorders (20 sources)Mood disordersOnset: 919157-86-3229Kuwbmrv (20 sources)Candidiasis of vagina; Translations: [Vaginal guero]Onset: 609284-75-1762AvowcixdHxtlxrzgj of unspecified nature or uncertain behavior (20 sources)Neoplasm of uncertain behavior of chest wall; Translations: [Neoplasm of uncertain behavior of other specified sites]Onset: 10-07-2024 35-08-5034AbplpodwQgrns aftercare (20 sources)Post-discharge follow-up; Translations: [Encounter for follow-up examination after completed treatment for conditions other than malignant neoplasm]Onset: 12-05-2023 Resolved: 223962-02-5952OkthayinVqvbp bone disease and musculoskeletal deformities (1 source)Other specified disorders of bone density and structure, right thigh; Translations: [OTH D/O BONE DEN STRUCT RT THIGH]Onset: 88-26-8589BliesasgOeftc connective tissue disease (20 sources)History of total knee arthroplasty; Translations: [Presence of right artificial knee joint]Onset: 12-05-2023 Resolved: 542418-00-1119VltvhfaYvumx infections; including parasitic (20 sources)Personal history of other infectious and parasitic diseases; Translations: [History of COVID-19]Onset: 895759-56-7648NnmmqjjcJzsaz injuries and conditions due to external causes (20 sources)At moderate risk for fall; Translations: [History of falling]Onset: 10-04-2023 Resolved: 968292-39-8180KpocupjbHcprs lower respiratory disease (4 sources)Respiratory disorder, unspecified; Translations: [RESPIRATORY DISORDER UNSPECIFIED]Onset: 03-28-5693SopafpfnKcowj lower respiratory disease (20 sources)Pneumonitis; Translations: [Other disorders of lung]Onset: 280188-16-6693TlqsrgndYrjhc lower respiratory disease (2 sources)Solitary pulmonary nodule; Translations: [Solitary pulmonary nodule] Onset: 46-88-4543NwdhllzvYzurf non-traumatic joint disorders (18 sources)Pain in right hip joint; Translations: [Pain in right hip]Onset: 881052-93-2107IvpzjvhlVdmvl non-traumatic joint disorders (20 sources)Hip pain; Translations: [Pain in left hip]Onset: 10-04-2023 Resolved: 930296-58-9854RmnyvbzxKukpu nutritional; endocrine; and metabolic disorders (20 sources)Hyperuricemia; Translations: [Hyperuricemia without signs of inflammatory arthritis and tophaceous disease]Onset: EpisodicOther screening for suspected conditions (not mental disorders or infectious disease) (20 sources)Encounter for screening mammogram for malignant neoplasm of breast; Translations: [Encounter for screening for malignant neoplasm of cervix]Onset: 01-36-6607WkxgpduvRxruv upper respiratory disease (2 sources)Other specified diseases of upper respiratory tract; Translations: [Other specified diseases of upper respiratory tract]Onset: 38-68-7509Avffdfxp Other upper respiratory infections (5 sources)Acute upper respiratory infection, unspecified; Translations: [Viral URI J06.9]Onset: 08-30-2021 Resolved: 34-49-6196EjnbhmksZjyjcl media and related conditions (20 sources)Acute suppurative otitis media without spontaneous rupture of ear drum; Translations: [Acute suppurative otitis media without spontaneous rupture of ear drum, bilateral]Onset: 10-04-2023 Resolved: 339809-76-6380AxextbulGykjbecyc (except that caused by tuberculosis or sexually transmitted disease) (20 sources)Pneumonia, unspecified organism; Translations: [Pneumonia, organism unspecified]Onset: 994258-24-6594MhqllslhGafnvrbn codes; unclassified (1 source)Asymptomatic menopausal state; Translations: [ASYMPTOMATIC MENOPAUSAL STATE]Onset: 10-33-2265EgncfinuEhyiyqmz codes; unclassified (20 sources)Postmenopausal state; Translations: [Asymptomatic menopausal state] Onset: 604045-35-9912CvctuqehIktjdmhf codes; unclassified (20 sources)Viral syndrome; Translations: [Other general symptoms and signs] Onset: 01-02-2025 Resolved: 600160-89-6949UwmotmnqQhvmylda codes; unclassified (20 sources)Bilateral lower limb edema; Translations: [Localized edema]Onset: 641058-93-8698LtoqpdztQfnyeinrr and history of mental health and substance abuse codes (20 sources)Depression screening positive; Translations: [Encounter for screening for depression]Onset: 10-04-2023 Resolved: 734865-80-9970AwevptzcQwhd and subcutaneous tissue infections (20 sources)Pustule ; Translations: [Local infection of the skin and subcutaneous tissue, unspecified]Onset: 926762-79-2274OsquajseYjmlglfwckl; intervertebral disc disorders; other back problems (20 sources)Spinal stenosis of lumbar region; Translations: [Spinal stenosis, lumbar region without neurogenic claudication]Onset: 03-24-2023 Resolved: 55-20-5289RceufmkoZlcemvzadiow (1 source)CONTACT W/AND (SUSP) EXPOS COVID-19; Translations: [CONTACT W/AND (SUSP) EXPOS COVID-19]Onset: 83-59-9838Cdtmsjhrjtsn (1 source)ACUTE COUGH; Translations: [ACUTE COUGH]Onset: 15-17-5250Vymlgtlrhheu (1 source)CHRN KIDNEY DISEASE STG 3 UNSP; Translations: [CHRN KIDNEY DISEASE STG 3 UNSP]Onset: 18-04-1179Umajl infection (20 sources)COVID-19; Translations: [Other specified viral infection]Onset: 484466-13-7904Lddetqcf Results Test NameValueInterpretationReference RangeFacilityGastrointestinal pathogens panel KAYLEE+probe (Stl)on 26-74-4569HUCVITSXHZXNG JEJUNI, COLI (GASTROINTESTINAL)0 NOMS HealthcareCAMPYLOBACTER JEJUNI, COLI (GASTROINTESTINAL)Not detectedNOMS HealthcareCLOSTRIDIUM DIFFICILE (TOXIN A/B) (GASTROINTESTINAL)0[facility] CLOSTRIDIUM DIFFICILE (TOXIN A/B) (GASTROINTESTINAL)Not detectedNOMS Healthcare CLOSTRIDIUM [id number] HealthcareCLOSTRIDIUM PERFRINGENSNot detectedNOMS HealthcareCRYPTOSPORIDIUM SPP (PARVUM, HOMINIS, [...] (GASTROINTESTINAL)Not detectedNOMS HealthcareMICROSPORIDIUM (ENTEROCYTOZOON BIENEUSI, ENCEPHALITOZOON INTESTINALIS) (QR2[facility] MICROSPORIDIUM (ENTEROCYTOZOON BIENEUSI, ENCEPHALITOZOON INTESTINALIS) (GANot [...] in non- AmericanOrdered By: Kaylene López on 37-43-3981BMC/1.73 sq M.predicted among non-blacks MDRD (S/P/Bld) [Vol rate/Area]47 mL/min/{1.73_m2}Low>=60 mL/min/1.73m 2FPremier HealthLaboratory - Chemistry and Chemistry - challengeOrdered By: Kaylene López on 98-00-6356Otzmzyq [Mass/Vol]8.6 mg/dL8.5-10.1FPremier HealthChloride [Moles/Vol]106 mmol/F03-119WntqubaxgKettering Health Washington TownshipCO2 [Moles/Vol]25.4 mmol/L21.0-32.0[facility] TownshipCreatinine [Mass/Vol]1.15 mg/dLHigh0.55-1.02[facility] TownshipGFR/1.73 sq M.predicted MDRD (S/P/Bld) [Vol rate/Area]57 mL/min/{1.73_m2} Low>=60 mL/min/1.73m 2FPremier HealthGlucose [Mass/Vol]137 mg/tTApvg01-111ZolitvnxwKettering Health Washington TownshipPotassium [Moles/Vol]3.3 mmol/L Low3.5-5.1FHocking Valley Community Hospitalodium [Moles/Vol]144 mmol/V978-304 [facility] TownshipUrea nitrogen [Mass/Vol]6.0 mg/dLLow7.0-18.0 [facility] TownshipUrea nitrogen/Creatinine [Mass ratio]5.2 mg/mg [facility] Hospitalerum or plasma anion gap determinationOrdered By: Kaylene López on 21-65-5216Hlwal gap [Moles/Vol]15.9 mmol/LFPremier HealthAmbulatory Visit Summaryon 55-18-3147Ozvptbtccu Visit SummaryAmbulatory Visit Summary DIANA CHAMPION :1955 [...] Amalia Stephens PA-C Where: [facility] [address] [address]- Medications What How Much When Instructions Unchanged [...] signed up for this yet, please contact [facility] at [phone] to get signed up today. Language Information Language assistance services are available as needed. [facility] HospitalUrology Office/Clinic Noteon 79-03-8209Tgfxvbh Office/Clinic NoteUrology Office/Clinic Note Chief Complaint 3 [...] in no acute distress. Assessment/Plan CHF - [facility] [place] CKD - Joana COPD/Pulm - [...] urgency and UUI. VESIcare was stopped and Aaxrvxrm88 mg ER qd. BBSQ 27 UA today [...] day(s), # 30 tab(s), Refills(s) 4, Pharmacy: [id number], 163, cm, 07/22/25 8:42:00 EDT, Height/Length Dosing, 105.1, kg, 07/22/25 8:42:00 EDT, Weight Dosing 2. Mixed incontinence (N39.46: Mixed incontinence) UUI>DONNA -See #1 Ordered: mirabegron, 25 mg = 1 tab(s), Oral, Daily, X 30 day(s), # 30 tab(s), Refills(s) 4, Pharmacy: [id number], 163, cm, 07/22/25 [...] Urnls Dip Stick Auto w/o Microscopy POC 16671 Follow-up No qualifying data available Patient Education [...] CE - Cataract extrac (more content not included)...[facility] HospitalComment on above:Result Comment: Electronically Signed By: Kat MICHAUD, Amalia\.br\Date and Time Signed: 07/22/25 09:58 EDTGlomerular filtration rate (GFR) estimation in non- AmericanOrdered By: Kaylene López on 07-18-2025 GFR/1.73 sq M.predicted among non-blacks MDRD (S/P/Bld) [Vol rate/Area]40 mL/min/{1.73_m2}Low>=60 mL/min/1.73m 2FPremier Health Laboratory - Chemistry and Chemistry - challengeOrdered By: Kaylene López on 66-06-6037Jvomuot [Mass/Vol]8.7 mg/dL8.5-10.1FPremier Health Chloride [Moles/Vol]104 mmol/P98-916LqilumytwKettering Health Washington TownshipCO2 [Moles/Vol]26.8 mmol/L21.0-32.0[facility] TownshipCreatinine [Mass/Vol]1.33 mg/dLHigh0.55-1.02[facility] TownshipGFR/1.73 sq M.predicted MDRD (S/P/Bld) [Vol rate/Area]48 mL/min/{1.73_m2}Low>=60 mL/min/1.[address]m [address] [place], [place] [address]Glucose [Mass/Vol]164 mg/dLHigh 74-106[facility] TownshipMagnesium [Mass/Vol]1.8 mg/dL1.8-2.4 [facility] TownshipPotassium [Moles/Vol]3.3 mmol/LLow3.5-5.1 [facility] Hospitalodium [Moles/Vol]141 mmol/F417-578QlbqzbestKettering Health Washington TownshipUrea nitrogen [Mass/Vol]15.0 mg/dL7.0-18.0[facility] TownshipUrea nitrogen/Creatinine [Mass ratio]11.3 mg/mgFostoria City Hospitalerum or plasma anion gap determinationOrdered By: Kaylene López on 99-80-8014Xyfny gap [Moles/Vol]13.5 mmol/LFPremier HealthGlomerular filtration rate (GFR) estimation in non- Ordered By: Nicolas Dickinson on 26-43-0316TUG/1.73 sq M.predicted among non-blacks MDRD (S/P/Bld) [Vol rate/Area]56 mL/min/{1.73_m2}Low>=60 mL/min/1.[address]m [address] [place], [place] [address]Laboratory - Chemistry and Chemistry - challengeOrdered By: Nicolas Dickinson on 33-56-9887Osedzsy [Mass/Vol]8.7 mg/dL8.5-10.1FPremier HealthChloride [Moles/Vol]106 mmol/G04-489DolvuvvczKettering Health Washington TownshipCO2 [Moles/Vol]29.3 mmol/L21.0-32.0[facility] TownshipCreatinine [Mass/Vol]0.99 mg/dL0.55-1.02[facility] GFR/1.73 sq M.predicted MDRD (S/P/Bld) [Vol rate/Area]mL/min/{1.73_m2}>=60 mL/min/1.73m 2FPremier HealthGlucose [Mass/Vol]206 mg/dLHigh 74-106[facility] Washington TownshipMagnesium [Mass/Vol]2.1 mg/dL1.8-2.4 [facility] TownshipPotassium [Moles/Vol]4.1 mmol/L3.5-5.1FHocking Valley Community Hospitalodium [Moles/Vol]143 mmol/H917-641ZsytkrptqKettering Health Washington TownshipUrea nitrogen [Mass/Vol]19.0 mg/dLHigh7.0-18.0[facility] Washington TownshipUrea nitrogen/Creatinine [Mass ratio]19.2 mg/mgFostoria City Hospitalerum or plasma anion gap determinationOrdered By: Nicolas Dickinson on 50-76-7003Cofcy gap [Moles/Vol]11.8 mmol/LFPremier HealthXR Hip - right 3 Viewson 05-87-7155[address] [address] XRay Report Signed Patient: DIANA CHAMPION MR#: [id number] : 1955 Acct:[id number] Age/Sex: 69 / F ADM Date: 04/30/25 Loc: RAD Attending Dr: Jose Saucedo VALIDATION LEADER Ordering Physician: Jose Saucedo NP Date of Service: 04/30/25 Procedure(s): XR hip RT min 2V Accession Number(s): [id number] cc: Kaylene López NP; Jose Saucedo NP [place] [id number] Patient Name: DIANA CHAMPION MRN: [id number] date: 1955 Sex: F Assigned Patient Location: [facility] Current Patient Location: RAD Accession/Order Number: [id number] Exam Date: 04/30/2025 13:45 Report Date: 04/30/2025 [...] Jr., D.O. 04/30/2025 1:46 PM Dictation Location: [place] [address] Electronically authenticated by: [id number] Y Date: 04/30/2025 13:46 Dictated By: Marcos Medina M.D. Signed By: 04/30/25 1349 DD/ 1346 TD/TT: Psychiatric Security Nurse:TBHRadiology, Radiologist, - 04/30/2025 [place] [address] XRay Report Signed Patient: DIANA CHAMPION MR#: [id number] : 1955 Acct:[id number] Age/Sex: 69 / F ADM Date: 04/30/25 Loc: NAKITA Attending Dr: Jose Saucedo NP Ordering Physician: Jose Saucedo NP Date of Service: 04/30/25 Procedure(s): XR hip RT min 2V Accession Number(s): [id number] cc: Kaylene López NP; Jose Saucedo NP [facility] [place] [id number] Patient Name: DIANA CHAMPION MRN: [id number]:[id number] date: 1955 Sex: F Assigned Patient Location: [facility] Current Patient Location: [facility] Accession/Order Number: [id number] Exam Date: 04/30/2025 13:45 Report Date: 04/30/2025 [...] Jr. DCarl 04/30/2025 1:46 PM Dictation Location: [place] [address] Electronically authenticated by: [id number] Y Date: 04/30/2025 13:46 Dictated By: Marcos Medina M.D. Signed By: 04/30/25 1349 DD/ 1346 TD/TT: Psychiatric Security Nurse: WILL HealthcareRadiology Study observation (narrative)NOMS HealthcareXR Hip - right 3 ViewsOrdered By: Radiologist Radiology on 90-45-1026EEYW Healthcare Work Phone: ambulatory Visit Summaryon 13-42-2994Ftsznzggjn Visit SummaryAmbulatory Visit Summary DIANA CHAMPION :1955 [...] MAG BLOUNT PA-C Where: [facility] [address] [place] [address]- Medications What How Much When Instructions Unchanged [...] you for choosing us for your care. [facility] HospitalUrology Office/Clinic Noteon 71-08-0411Etvyerk Office/Clinic NoteUrology Office/Clinic Note Chief Complaint 5 [...] IR BID. Pt currently rehabbing at [facility] d/t double pneumonia. Has been there x1 week, plan is to hopefully return home within the next week or so. F/u 3 mos to assess efficacy. Ordered: Body Mass Index (BMI) documented 3008F Current tobacco non-user 1036F Depression Screening Negative 3352F E&M of Est. Patient Moderate 30-39 Min 75738 Medication list documented in medical record 1159F [...] Never., 10/15/2024 Substance Abuse (more content not included)...[facility] Comment on above:Result Comment: Electronically Signed By: JOSE ALEJANDRO MICHAUD, MAG Hester\.br\Date and Time Signed: 03/24/2510:44 EDTMG Breast - bilateral Screeningon 30-13-2423[place] [address] Mammography Report Signed Patient: DIANA CHAMPION MR#: [id number] : 1955 Acct:[id number] Age/Sex: 69 / F ADM Date: 03/03/25 Loc: MAMMO Attending Dr: Kaylene López NP Ordering Physician: Kaylene López NP Results: Date of Service: 03/03/25 Follow Up: Procedure(s): MM screening mammo BI Accession Number(s): [id number] cc: Kaylene López NP Patient Name: DIANA CHAMPION MR#: [id number] : 1955 Exam Date: 03/03/2025 Ordering Doctor: CLEO López VINEYARD TENDER RADIOLOGY REPORT PROCEDURE: MM SCREENING MAMMO BI [...] radiation, chemotherapy Family Cancers None LOCATION: [facility] BREAST COMPOSITION: The breasts are [...] Signed By: 03/03/25 164 DD/ 41 TD/TT: Psychiatric Security Nurse:TBHRadiology, Radiologist, - 03/03/2025 [place] [address] Mammography Report Signed Patient: DIANA CHAMPION MR#: [id number] : 1955 Acct:[id number] Age/Sex: 69 / F ADM Date: 03/03/25 Loc: MAMMO Attending Dr: Kaylene López NP Ordering Physician: Kaylene López NP Results: Date of Service: 03/03/25 Follow Up: Procedure(s): MM screening mammo BI Accession Number(s): [id number] cc: Kaylene López NP Patient Name: DIANA CHAMPION MR#: [id number] : 1955 Exam Date: 03/03/2025 Ordering Doctor: [...] radiation, chemotherapy Family Cancers None LOCATION: [facility] BREAST COMPOSITION: The breasts are [...] M.D. Signed By: 03/03/251642 DD/ 41 TD/TT: Psychiatric Security Nurse: NOMS HealthcareRadiology Study observation (narrative)[facility] Breast - bilateral ScreeningOrdered By: Radiologist Radiology on 24-85-5513PKUVKindred Hospital Work Phone: Office Visiton 87-38-2630Tvtrkp-up [id number] Diana Champion 1955 F Date Provider Department Center 01/23/2025 271-LOYDA, E[facility]AB [facility] Family History Problem Relation Age of Onset Heart failure Mother Heart disease Father Family Status - Relation Status Age at Mother Father Level of Service:35141 SC OFFICE/OUTPATIENT ESTABLISHED LOW MDM 20 [facility] HospitalLabor[facility] - Microbiology and Antimicrobial susceptibilityon 06-41-1007CGYB-CoV-2 (COVID-19) RNA KAYLEE+probe Ql (Unsp spec) NegativeMercy Hospital St. Louis Panel Informationon 38-09-6436GMS ANegativeNOMS HealthcareFLU BNegativeNOND HealthcareInterpretation and review of laboratory resultsNormalFrye Regional Medical CenterXR Hip - right 3 Viewson 12-17-2024 Imaging Result: AP and Lateral right hip No acute fracture Mild SI joint arthritic changes Pt has severe arthritis to right hip joint with subchondral cyst and sclerosis to femoral head and acetabulum. Stable hardware left hip on AP view Impression: Severe right hip arthritis.[facility] Regional Medical CenterRadiology Study observation (narrative)Kindred HospitalXR Knee - right 1 or 2 Viewson 46-64-7519Nlejzyi Result: AP and Lateral of right knee: Surgical position and alignment of prosthetic components without evidence of loosening or wear to femora, tibial or patellar components, The alignment appears to be anatomic. No evidence of accelerated or asymmetric wear to tibial tray or patella button. No evidence of fracture or dislocation. Impression: Unremarkable right total knee arthroplastyNOAspirus Riverview Hospital and ClinicsRadiology Study observation (narrative)[facility] Panel Informationon 06-64-1403Garsnudcfg: simple Destruction method: cryotherapy Informed consent: discussed and consent obtained Informed consent comment: The risks of the procedure were discussed, including, but not limited to risks of scarring, darker or roll weigher pigmentary changes, recurrence, infection, and incomplete removal [...] or tenderness. Additional details: Previous accession number: [id number] HospitalNo Panel InformationOrdered By: Pat Mcfarland on 79-10-3794WEOD [employer]vv.com Work Phone: abstracton [id number] Diana Champion 1955 F Date Provider Department Center 10/24/2024 EMELIA MORALES ONC DCC Family History Problem Relation Age of Onset Heart failure Mother Heart disease Father Family Status - Relation Status Age at Mother FatherNormalUniversity of [facility] Urineon 99-99-7696Iyicyakd identified Cx Nom (U)Microbiology PROCEDURE: Urine Culture [...] test was performed at: [facility], [address] [place] [address], [address]- , , VlylzoTknyehWadsworth-Rittman HospitalComment on above:Performed By: #### [id number] #### [facility] [address] [place] [address]Mblmfqmcgo Visit Summaryon 68-45-6050Iirxogyxbd Visit Summary Ambulatory Visit Summary DIANA CHAMPION [...] MICHAUD, MAG Hester Where: [facility] [address] [place] [address]- Medications What How Much When Instructions Unchanged [...] you for choosing us for your care. [facility]ittman HospitalNo Panel Informationon 36-09-5393Pmwk of biopsy: tangential Informed consent: discussed and [...] Photo taken Amount of lidocaine used: 0.5 [facility]36on Faxed to [facility]. Ticker put in for Nov 2024 for patient to be scheduled with Dr. hCurch.[facility]36on 05-03-676120Xpezmcz called requesting clearance prior to cataract surgery. You saw her in May, and she had an echo shortly after (05/28/24 in media promoter). Please advise. Thanks.[facility] OhioEPITHELIAL CELLSon 52-84-3072Qfzxxkcpxc cells LM Ql (Urine sed) Epithelial Cells Few [facility] HealthcareNo Panel Informationon 10-79-5659YLJTARQKQTGXG HealthcareRESULT 1 on 12-69-7479SIRXLH 1 Result 1 Moderate budding yeast present. NOMS HealthcareRESULT 2on 55-38-5942YJMBCH 2 Result 2 Few gram positive cocci NOMS HealthcareRESULT 3on 29-50-4919EIADOB 3 Result 3 VALIDATION LEADER NOMS HealthcareRESULT 4on 46-43-8785QDYJJI 4 Result 4 VALIDATION LEADER NOMS HealthcareWHITE BLOOD CELLSon 95-09-3223YXHRK BLOOD CELLS White Blood Cells NOMRanken Jordan Pediatric Specialty HospitalWHITE BLOOD CELLSFewKindred HospitalALL CBC WITH AUTO DIFFon 09-75-5798AFJYLEIJB ABSOLUTE AUTO0.1NOMS HealthcareBasophils/100 WBC (Bld)0.5 % 0.2 - 2.0 %NOMS [facility] HospitalEosinophils/100 WBC (Bld)1.5 %0.9 - 7.0 %Kindred HospitalErythrocyte distribution width (RBC) [Ratio]13.0 %11.0 - 15.0 %Kindred HospitalHematocrit (Bld) [Volume fraction]39.0 %36.0 - 48.0 %[facility] Hemoglobin (Bld) [Mass/Vol]12.2 g/dL12.0 - 16.0 g/dLKindred HospitalIMMATURE GRANULOCYTES ABS AUTO0.22HighNOSaint Mary's Health CenterImmature granulocytes/100 WBC (Bld) 2.4 %High0.0 - 0.5 %Kindred HospitalInterpretation and review of laboratory resultsAbnormalNOSaint Mary's Health CenterLYMPHOCYTES ABSOLUTE AUTO1.6NOMS [facility] Lymphocytes/100 WBC (Bld)17.2 %Low20.5 - 60.0 %[facility] Pershing VA Medical CenterH (RBC) [Entitic mass]29.7 pg26.7 - 34.0 pgJohn J. Pershing VA Medical CenterHC (RBC) [Mass/Vol]31.3 g/dL29.9 - 35.2 g/dLJohn J. Pershing VA Medical CenterV (RBC) [Entitic vol]94.9 fL81.0 - 99.0 fLKindred HospitalMONOCYTES ABSOLUTE AUTO0.8NOMS HealthcareMonocytes/100 WBC (Bld)8.3 % 1.7 - 12.0 %Kindred HospitalNEUTROPHILS ABSOLUTE AUTO6.4NOMS Healthcare Neutrophils/100 WBC (Bld)70.1 %43.0 - 75.0 %Kindred HospitalPlatelet mean volume (Bld) [Entitic vol]8.8 fLLow9.5 - 13.5 fLNOMS HealthcareTB EO #0.1NOMS HealthcareTBH XVG011HJIP HealthcareTB RBC4.11LowNOMS HealthcareTBH WBC9.1NOMS HealthcareCLINISYNCNOMS HealthcareTelemedicineon [id number] Diana Champion 1955 Provider Department Center 07/11/2024 Nicholas-EMELIA YOO ONC DCC Family History Problem Relation Age of Onset Heart failure Mother Heart disease Father Family Status - Relation Status Age at Mother Father Level of Service:63792 SC PHYS/QHP TELEPHONE EVALUATION 21-30 MIN () Reason for Visit and Comments: Telehealth Phone Visit [592] - Tracheobronchomalacia follow up per Dr Canseco. NormalUniCoshocton Regional Medical Center 14-67-6766DML&P reviewed. The patient was examined and there [...] focal deficit PSYCH: appropriate mood, affect, and judgement.NormalUnLouis Stokes Cleveland VA Medical CenterNURSNOTEon 39-11-6295XKTOZRFIUiyenc up at Pulmonary Medicine [place] with Matthew Vargas May resume a Regular Diet and home medications.NormalUnLouis Stokes Cleveland VA Medical CenterNURSNOTEBronchoscopy Findings: TracheobronchomalaciaNormal Lutheran HospitalTelephoneon [id number] Diana Champion 1955 Provider Department Center 06/27/2024 SOURAV DAVID ONC DCC Family History Problem Relation Age of Onset Heart failure Mother Heart disease Father Family Status - Relation Status Age at Mother FatherNormalUniversOhioHealthPrep for Procedureon 06-26-2024 Prep for [id number] Diana Champion 1955 F Date Provider Department Center 06/26/2024 EMELIA MORALES [facility] Family History Problem Relation Age of Onset Heart failure Mother Heart disease Father Family Status - Relation Status Age at Mother FatherNormalUniversOhioHealthHPon 62-32-5645UY Attestation signed by Emelia Yoo MD at [...] Age: 68 y.o. : 1955 Account No.: [id number] Referring physician: Dr. Bo Mcclain Chief complaint: Recurreny pneumonia HPI Diana Champion is a 68 y.o. female with PMHx of reportedly COPD, chronic hypoxic respiratory failure on 2L home O2 who is presenting to clinic as a new patient after being referred by Dr. Bo Baker of [facility]. Patient has been admitted 4 times [...] Past Medical History: Diagnosis Date Asthma Cancer ([facility]) COPD (chronic obstructive pulmonary disease) ([facility]) Coronary artery disease GERD (gastroesophageal [...] mouth every other day. Yes Historical Provider, xyxrwtknobu-nzdcuzful-gpbzaqho 100-62.5-25 mcg blister with device Yes Historical [...] mEq ER ta (more content not included)...Normal Lutheran HospitalTelemedicineon [id number] Diana Champion 1955 F Date Provider Department Center 06/25/2024 EMELIA MORALES [facility] ONC DCC Family History Problem Relation Age of Onset Heart failure Mother Heart disease Father Family Status - Relation Status Age at Mother Father Level of Service:54956 SC PHYS/QHP TELEPHONE EVALUATION 21-30 MIN () Reason for Visit and Comments: New Patient [632] - VALIDATION LEADER REFERRED BY BO 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 CT DONE 04-11-24 AND 06-07-24 AT [facility]. RECORDS SCANNED INTO MEDIA. FILMS REQUESTED- requested 3 times and [employer] IS DOWN. Could not get films.Normal Lutheran HospitalCA ECHO DOPPLER COMPLETEon 68-04-5362Rvo [address] [address] Cardiology Report Signed Patient: DIANA CHAMPION MR#: [id number] : 1955 Acct:[id number] Age/Sex: 68 / F ADM Date: 05/28/24 Loc: CARD Attending Dr: Nasim Church M.D. Ordering Physician: Nasim Chucrh M.D. Date of Service: 05/28/24 Procedure(s): CA echo doppler complete Accession Number(s): [id number] cc: Nasim Church M.D.; Shaikh Eva Ohara Patient Name: DIANA CHAMPION MR#: [id number] : 1955 Exam Date: 05/28/2024 Ordering Doctor: [...] not included)...TBHRadiology, Radiologist, MD - 05/29/2024 [place] [address] Cardiology Report Signed Patient: DIANA CHAMPION MR#: [id number] : 1955 Acct:[id number] Age/Sex: 68 / F ADM Date: 05/28/24 Loc: CARD Attending Dr: Nasim Church M.D. Ordering Physician: Nasim Church M.D. Date of Service: 05/28/24 Procedure(s): CA echo doppler complete Accession Number(s): [id number] cc: Nasim Church M.D.; Shaikh Eva Ohara Patient Name: DIANA CHAMPION MR#: [id number] : 1955 Exam Date: 05/28/2024 Ordering Doctor: [...] Dictated By: ALICIA LIMON Signed By: 05/29/24 1559 DD/ 1541 TD/TT: Psychiatric Security Nurse: WILL HealthcareRadiology Study observation (narrative)WILL ShearerCA ECHO DOPPLER COMPLETEOrdered By: Radiologist Radiology on 54-93-5114CWOW Healthcare Work Phone: Office Visiton 70-68-3213Eqeemw-up [id number] Diana Champion 1955 F Date Provider Department Center 05/13/[address] [place] [address] Family History Problem Relation Age of Onset Heart failure Mother Heart disease Father Family Status - Relation Status Age at Mother Father Level of Service:55811 SC OFFICE/OUTPATIENT ESTABLISHED MOD MDM 30 [facility] HospitalXR CHEST 2Von 80-22-5497Jvc[place] [address] XRay Report Signed Patient: DIANA CHAMPION MR#: [id number] : 1955 Acct:[id number] Age/Sex: 68 / F ADM Date: 04/03/24 Loc: RAD Attending Dr: Shaikh Lev Velasquez Ordering Physician: Shaikh Eva Ohara Date of Service: 04/03/24 Procedure(s): XR chest 2V Accession Number(s): [id number] cc: Shaikh Eva Ohara [address] [address] Patient Name: DIANA CHAMPION MRN: [id number] date: 1955 Sex: F Assigned Patient Location: [facility] Current Patient Location: [facility] Accession/Order Number: [id number] Exam Date: 04/03/2024 15:40 Report Date: 04/03/2024 [...] Signed By: 04/03/24 1630 DD/ 1627 TD/TT: Psychiatric Security Nurse:TBHRadiology, Radiologist, - 04/03/2024 [place] [address] XRay Report Signed Patient: DIANA CHAMPION MR#: [id number] : 1955 Acct:[id number] Age/Sex: 68 / F ADM Date: 04/03/24 Loc: RAD Attending Dr: Shaikh Lev Velasquez Ordering Physician: Shaikh Eva Ohara Date of Service: 04/03/24 Procedure(s): XR chest 2V Accession Number(s): [id number] cc: Shaikh Eva Ohara The [address] [address] Patient Name: DIANA CHAMPION MRN: [id number] date: 1955 Sex: F Assigned Patient Location: RAD Current Patient Location: RAD Accession/Order Number: [id number] Exam Date: 04/03/2024 15:40 Report Date: 04/03/2024 [...] Signed By: 04/03/24 1630 DD/ 1627 TD/TT: Psychiatric Security Nurse: NOMS HealthcareRadiology Study observation (narrative)NOMS HealthcareXR CHEST 2V Ordered By: Radiologist Radiology on 54-43-9452EZNU Healthcare Work Phone: XR CHEST 2Von 09-35-8035Iex[place]ard [place] [address] XRay Report Signed Patient: DIANA CHAMPION MR#: [id number] : 1955 Acct:[id number] Age/Sex: 68 / F ADM Date: 03/27/24 Loc: RAD Attending Dr: Shaikh Lev Velasquez Ordering Physician: Shaikh Eva Ohara Date of Service: 03/27/24 Procedure(s): XR chest 2V Accession Number(s): [id number] cc: Shaikh Eva Ohara [address] [address] Patient Name: DIANA CHAMPION MRN: [facility]:[id number] date: 1955 Sex: F Assigned Patient Location: RAD Current Patient Location: RAD Accession/Order Number: [id number] Exam Date: 03/27/2024 14:40 Report Date: 03/27/2024 [...] Signed By: 03/27/24 1605 DD/ 1602 TD/TT: Psychiatric Security Nurse:AMINTAHRadiology, Radiologist, - 03/27/2024 [place] [address] XRay Report Signed Patient: DIANA CHAMPION MR#: [id number] : 1955 Acct:[id number] Age/Sex: 68 / F ADM Date: 03/27/24 Loc: RAD Attending Dr: Shaikh Lev Velasquez Ordering Physician: Shaikh Eva Ohara Date of Service: 03/27/24 Procedure(s): XR chest 2V Accession Number(s): [id number] cc: Shaikh Eva Ohara The [address] [address] Patient Name: DIANA CHAMPION MRN: [facility]:[id number] date: 1955 Sex: F Assigned Patient Location: RAD Current Patient Location: RAD Accession/Order Number: [id number] Exam Date: 03/27/2024 14:40 Report Date: 03/27/2024 [...] Signed By: 03/27/24 1605 DD/ 1602 TD/TT: Psychiatric Security Nurse: WILL HealthcareRadiology Study observation (narrative)NOM HealthcareXR CHEST 2V Ordered By: Radiologist Radiology on 66-35-9225NAHQ Healthcare Work Phone: XR THORACIC SPINE 3Von 06-89-0187W[address] [address] XRay Report Signed Patient: DIANA CHAMPION MR#: [id number] : 1955 Acct:[id number] Age/Sex: 68 / F ADM Date: 03/26/24 Loc: RAD Attending Dr: Jose Saucedo NP Ordering Physician: Jose Saucedo NP Date of Service: 03/26/24 Procedure(s): XR thoracic spine 3V Accession Number(s): [id number] cc: Shaikh Eva Ohara; Jose Saucedo NP [address] [place] [id number] Patient Name: DIANA CHAMPION MRN: [id number] date: 1955 Sex: F Assigned Patient Location: [facility] Current Patient Location: Accession/Order Number: [id number] Exam Date: 03/26/2024 15:13 Report Date: 03/27/2024 [...] Signed By: 03/27/24 0753 DD/ 0750 TD/TT: Psychiatric Security Nurse:TBHRadiology, Radiologist, MD - 03/27/2024 [place] [address] XRay Report Signed Patient: DIANA CHAMPION MR#: [id number] : 1955 Acct:[id number] Age/Sex: 68 / F ADM Date: 03/26/24 Loc: RAD Attending Dr: Jose Saucedo NP Ordering Physician: Jose Saucedo NP Date of Service: 03/26/24 Procedure(s): XR thoracic spine 3V Accession Number(s): [id number] cc: Shaikh Eva Ohara; Jose Saucedo NP [facility] [place] [id number] Patient Name: DIANA CHAMPION MRN: [id number] date: 1955 Sex: F Assigned Patient Location: [facility] Current Patient Location: Accession/Order Number: [id number] Exam Date: 03/26/2024 15:13 Report Date: 03/27/2024 [...] Signed By: 03/27/24 0753 DD/ 075 TD/TT: Psychiatric Security Nurse: WILL HealthcareRadiology Study observation (narrative)[facility] HealthcareXR THORACIC SPINE 3VOrdered By: Radiologist Radiology on 91-63-4011GZIQ [employer] Work Phone: Erythrocyte distribution width Auto (RBC) [Ratio]on 45-96-9444Abtqrexeqsx distribution width (RBC) [Ratio]13.2 %11.0-15.0[facility] TownshipEstimated glomerular filtration rate (GFR) non- Americanon 67-87-1575LJM/1.73 sq M.predicted among non-blacks MDRD (S/P/Bld) [Vol rate/Area]57 mL/min/{1.73_m2}>=60[facility] Hematocrit Auto (Bld) [Volume fraction]on 61-05-0273Wyxrqitncy (Bld) [Volume fraction]38.7 %36.0-48.0[facility] TownshipHemoglobin [Mass/volume] in Bloodon 99-26-1717Cjdmojanqo (Bld) [Mass/Vol]12.2 g/dL12.0-16.0 [facility] TownshipLaboratory - Chemistry and Chemistry - challengeon 37-36-6734Lscjxnq [Mass/Vol]3.0 g/dL3.4-5.0[facility] TownshipCalcium [Mass/Vol]8.8 mg/dL8.5-10.1FPremier HealthChloride [Moles/Vol]104 mmol/D74-418CygryhcfmKettering Health Washington TownshipCO2 [Moles/Vol]32.2 mmol/L21.0-32.0[facility] TownshipCreatinine [Mass/Vol]0.97 mg/dL0.55-1.02[facility] TownshipGFR/1.73 sq M.predicted MDRD (S/P/Bld) [Vol rate/Area]mL/min/{1.73_m2}>=60[facility] TownshipGlucose [Mass/Vol]67 mg/gZ48-755ZrxjyyuntKettering Health Washington Township Magnesium [Mass/Vol]1.9 mg/dL1.8-2.4FPremier HealthPotassium [Moles/Vol]3.4 mmol/L3.5-5.1FHocking Valley Community Hospitalodium [Moles/Vol] 143 mmol/U571-420FrotnnzdmKettering Health Washington TownshipUrate [Mass/Vol]5.0 mg/dL 2.6-6.0[facility] TownshipUrea nitrogen [Mass/Vol]16.0 mg/dL 7.0-18.0[facility] TownshipUrea nitrogen/Creatinine [Mass ratio] 16.5 mg/mgKettering Health Washington TownshipLeukocytes [#/volume] corrected for nucleated erythrocytes in Blood by Automated counon 65-28-7995SPZ corrected for nucl RBC Auto (Bld) [#/Vol]8.1 10 3/uL4.0-11.0[facility] MCH Auto (RBC) [Entitic mass]on 11-43-2462CIS (RBC) [Entitic mass]30.4 pg 26.7-34.0[facility] TownshipMCHC Auto (RBC) [Mass/Vol]on 15-52-0840AURM (RBC) [Mass/Vol]31.5 g/dL29.9-35.2FPremier HealthMCV Auto (RBC) [Entitic vol]on 51-95-0525DLO (RBC) [Entitic vol]96.5 fL 81.0-99.0[facility] TownshipNo Panel Informationon 24-52-4901Wvwnr Random Gjreukywin18.27 mg/dL20.00-300.00[facility] Washington TownshipUrine Random Total Protein<6.0 mg/dL<=11.9[facility]25-Hydroxy Vitamin D Total37.1 ng/mLKettering Health Washington TownshipComment on above:<20 ng/mL Vit D ocsssscnx17-<30 ng/mL Vit D lyuwjkxygbvy09-826 ng/mL Vit D sufficient>100 ng/mL Potential ToxicityParathyroid Hormone (Intact)36 pg/mL15-65 [facility] TownshipComment on above:Performed at: - [facility] [id number] Director: Raphael Marrero PhD, Phone: [phone] Level3.2 mg/dL2.6-4.7FPremier HealthPlatelet mean volume Auto (Bld) [Entitic vol]on 37-24-8769Ulwjthuv mean volume (Bld) [Entitic vol]9.1 fL9.5-13.5FPremier Health Platelets Auto (Bld) [#/Vol]on 35-10-6654Utxcrutzf (Bld) [#/Vol]247 10 3/uL 150-450[facility] Washington TownshipRBC Auto (Bld) [#/Vol]on 96-90-4235OHE (Bld) [#/Vol]4.01 10 6/uL4.20-5.40Fostoria City Hospitalerum or plasma anion gap determinationon 71-57-1068Fkauo gap [Moles/Vol]10.2 mmol/L [facility] TownshipMM TOMOSYNTHESIS SCREENING BIon 73-91-7226[place] [address] Mammography Report Signed Patient: DIANA CHAMPION MR#: [id number] : 1955 Acct:[id number] Age/Sex: 68 / F ADM Date: 02/28/24 Loc: MAMMO Attending Dr: Kaylene López NP Ordering Physician: Kaylene López NP Results: Date of Service: 02/28/24 Follow Up: Procedure(s): MM tomosynthesis screening BI Accession Number(s): [id number] cc: Kaylene López NP; Shaikh Eva Ohara Patient Name: DIANA CHAMPION MR#: [id number] : 1955 Exam Date: 02/28/2024 Ordering Doctor: [...] radiation, chemotherapy Family Cancers None LOCATION: [facility] BREAST COMPOSITION: The breasts are [...] Signed By: 02/29/24 1602 DD/ 1601 TD/TT: Psychiatric Security Nurse:TBHRadiology, Radiologist, MD - 02/29/2024 [place] [address] Mammography Report Signed Patient: DIANA CHAMPION MR#: [id number] : 1955 Acct:[id number] Age/Sex: 68 / F ADM Date: 02/28/24 Loc: MAMMO Attending Dr: Kaylene López NP Ordering Physician: Kaylene López NP Results: Date of Service: 02/28/24 Follow Up: Procedure(s): MM tomosynthesis screening BI Accession Number(s): [id number] cc: Kaylene López VALIDATION LEADER; Shaikh Eva Ohara Patient Name: DIANA CHAMPION MR#: [id number] : 1955 Exam Date: 02/28/2024 Ordering Doctor: [...] radiation, chemotherapy Family Cancers None LOCATION: [facility] BREAST COMPOSITION: The breasts are [...] Signed By: 02/29/24 1602 DD/ 1601 TD/TT: Psychiatric Security Nurse: [facility] FOR BLIND BABIESKathy HealthcareRadiology Study observation (narrative)[facility] TOMOSYNTHESIS SCREENING BIOrdered By: Radiologist Radiology on 15-64-8141JGQI [email or web address] Work Phone: MR LUMBAR SPINE WO CONon [phone] [address] Magnetic Resonance Report Signed Patient: DIANA CHAMPION MR#: [id number] : 1955 Acct:[id number] Age/Sex: 68 / F ADM Date: 02/13/24 Loc: MRI Attending Dr: Shaikh Lev Velasquez Ordering Physician: Shaikh Eva Ohara Date of Service: 02/13/24 Procedure(s): MR lumbar spine wo con Accession Number(s): [id number] cc: Shaikh Eva Ohara [place] [address] Patient Name: DIANA CHAMPION MRN: [facility]:[id number] date: 1955 Sex: F Assigned Patient Location: MRI Current Patient Location: MRI Accession/Order Number: [id number] Exam Date: 02/13/2024 10:45 Report Date: 02/13/2024 [...] Signed By: 02/13/24 1408 DD/ 1406 TD/TT: Psychiatric Security Nurse:TBHRadiology, Radiologist, - 02/13/2024 [place] [address] Magnetic Resonance Report Signed Patient: DIANA CHAMPION MR#: [id number] : 1955 Acct:[id number] Age/Sex: 68 / F ADM Date: 02/13/24 Loc: MRI Attending Dr: Shaikh Lev Velasquez Ordering Physician: Shaikh Eva Ohara Date of Service: 02/13/24 Procedure(s): MR lumbar spine wo con Accession Number(s): [id number] cc: Shaikh Eva Ohara [place] [address] Patient Name: DIANA CHAMPION MRN: [id number] date: 1955 Sex: F Assigned Patient Location: MRI Current Patient Location: MRI Accession/Order Number: [id number] Exam Date: 02/13/2024 10:45 Report Date: 02/13/2024 [...] Signed By: 02/13/24 1408 DD/ 1406 TD/TT: Psychiatric Security Nurse: WILL HealthcareRadiology Study observation (narrative)[facility] LUMBAR SPINE WO CONOrdered By: Radiologist Radiology on 54-61-3559RJDC [facility] Work Phone: XR CHEST 1 Von [phone] [address] XRay Report Signed Patient: DIANA CHAMPION MR#: [id number] : 1955 Acct:[id number] Age/Sex: 68 / F ADM Date: Loc: ER Attending Dr: Ordering Physician: Tere Rodriguez Date of Service: 02/03/24 Procedure(s): XR chest 1V Accession Number(s): [id number] cc: Shaikh Eva Ohara; Tere Rodriguez [place] [address] Patient Name: DIANA CHAMPION MRN: [id number] date: 1955 Sex: F Assigned Patient Location: ED.MAIN Current Patient Location: ER Accession/Order Number: [id number] Exam Date: 02/03/2024 09:15 Report Date: 02/03/2024 09:41 At the request of: TEER RODRIGUEZ Procedure: XR chest 1V EXAM: XR [...] M.D. Signed By: 02/03/24942 DD/ 0 TD/TT: Psychiatric Security Nurse:AMINTAHRadiology, Radiologist, - 02/07/2024 [place] [address] XRay Report Signed Patient: DIANA CHAMPION MR#: [id number] : 1955 Acct:[id number] Age/Sex: 68 / F ADM Date: Loc: ER Attending Dr: Ordering Physician: Tere Rodriguez Date of Service: 02/03/24 Procedure(s): XR chest 1V Accession Number(s): [id number] cc: Shaikh Eva Ohara; Tere Rodriguez [address] [address] Patient Name: DIANA CHAMPION MRN: [facility]:[id number] date: 1955 Sex: F Assigned Patient Location: ED.MAIN Current Patient Location: ER Accession/Order Number: [id number] Exam Date: 02/03/2024 09:15 Report Date: 02/03/2024 [...] M.D. Signed By: 02/03/2443 DD/ 0 TD/TT: Psychiatric Security Nurse: WILL HealthcareRadiology Study observation (narrative)[facility] HealthcareXR CHEST 1 VOrdered By: Radiologist Radiology on 32-53-2227NZMB Healthcare Work Phone: XR LUMBAR SPINE 2 OR 3Von [phone] [address] XRay Report Signed Patient: DIANA CHAMPION MR#: [id number] : 1955 Acct:[id number] Age/Sex: 68 / F ADM Date: 01/25/24 Loc: RAD Attending Dr: Shaikh Lev Velasquez Ordering Physician: Shaikh Eva Ohara Date of Service: 01/25/24 Procedure(s): XR lumbar spine 2-3V Accession Number(s): [id number] cc: Shaikh Eva Ohara [place] [address] Patient Name: DIANA CHAMPION MRN: [facility]:[id number] date: 1955 Sex: F Assigned Patient Location: [facility] Current Patient Location: Accession/Order Number: [id number] Exam Date: 01/25/2024 12:50 Report Date: 01/26/2024 [...] Signed By: 01/26/24 0741 DD/ 0739 TD/TT: Psychiatric Security Nurse:MICHELLEadiology, Radiologist, - 01/26/2024 [place] [address] XRay Report Signed Patient: DIANA CHAMPION MR#: [id number] : 1955 Acct:[id number] Age/Sex: 68 / F ADM Date: 01/25/24 Loc: RAD Attending Dr: Shaikh Lev Velasquez Ordering Physician: Shaikh Eva Ohara Date of Service: 01/25/24 Procedure(s): XR lumbar spine 2-3V Accession Number(s): [id number] cc: Shaikh Eva Ohara [place] [address] Patient Name: DIANA CHAMPION MRN: [id number] date: 1955 Sex: F Assigned Patient Location: [facility] Current Patient Location: Accession/Order Number: [id number] Exam Date: 01/25/2024 12:50 Report Date: 01/26/2024 [...] Signed By: 01/26/24 0741 DD/ 0739 TD/TT: Psychiatric Security Nurse: WILL HealthcareRadiology Study observation (narrative)[facility] HealthcareXR LUMBAR SPINE 2 OR 3VOrdered By: Radiologist Radiology on 94-36-9134BWYM [facility] Work Phone: XR CHEST 2Von [phone] [address] [address] XRay Report Signed Patient: DIANA CHAMPION MR#: [id number] : 1955 Acct:[id number] Age/Sex: 68 / F ADM Date: 10/25/23 Loc: RAD Attending Dr: Bo Mcclain D.O. Ordering Physician: Bo Mcclain D.O. Date of Service: 10/25/23 Procedure(s): XR chest 2V Accession Number(s): [id number] cc: Shaikh Eva Ohara; Bo Mcclain D.O. The [address] [address] Patient Name: DIANA CHAMPION MRN: [id number] date: 1955 Sex: F Assigned Patient Location: [facility] Current Patient Location: [facility] Accession/Order Number: [id number] Exam Date: 10/25/2023 09:31 Report Date: 10/25/2023 [...] M.D. Signed By: 10/25/2348 DD/ 4 TD/TT: Psychiatric Security Nurse:AMINTAHRadiology, Radiologist, - 10/25/[address] [address] XRay Report Signed Patient: DIANA CHAMPION MR#: [id number] : 1955 Acct:[id number] Age/Sex: 68 / F ADM Date: 10/25/23 Loc: RAD Attending Dr: Bo Mcclain D.O. Ordering Physician: Bo Mcclain D.O. Date of Service: 10/25/23 Procedure(s): XR chest 2V Accession Number(s): [id number] cc: Shaikh Eva Ohara; Bo Mcclain D.O. [place] [address] Patient Name: DIANA CHAMPION MRN: [id number] date: 1955 Sex: F Assigned Patient Location: [facility] Current Patient Location: [facility] Accession/Order Number: [id number] Exam Date: 10/25/2023 09:31 Report Date: 10/25/2023 [...] M.D. Signed By: 10/25/23947 DD/ 4 TD/TT: Psychiatric Security Nurse: WILL HealthcareRadiology Study observation (narrative)[facility] HealthcareXR CHEST 2V Ordered By: Radiologist Radiology on 01-20-3804UTYY [email or web address] Work Phone: SYMPTOMATIC COVID-19 ANTIGENon 04-49-2508FZU Statement SEE BELOWSCCI Hospital LimaComment on above:Result Comment: This test has not [...] is revoked sooner.Performed By: #### CVDAGS #### [facility] [address] [place] [address] Dr. Shayne Fonseca-CoV-2 (COVID-19) RNA KAYLEE+probe Ql (Unsp spec)Positive AbnormalNEGATIVEThe [facility] County HospitalComment on above:Performed By: #### CVDAGS #### [facility] [address] [place] [address] Dr. Shayne RoldanXR LSPINE 2_3 VIEWSon 52-93-8299QA LSPINE 2_3 VIEWSEXAMINATION: XR LSPINE 2_3 VIEWS [...] Electronically authenticated by: STEPH GRANADOS Date: 2023-03-24 12:52SCCI Hospital LimaPT INTACTon 58-73-6308RCM, Zoskbg05 pg/mLCritically hgmt35-74 The [facility] HospitalComment on above:Performed By: #### PTHINT #### [facility] [address] [place] [address] Dr. Shayne RoldanHEMOGRAM AND PLATELon 47-32-2360Qxjwlkxrsb (Bld) [Volume fraction]44.4 %Kqubci11.0-48.0The [facility] HospitalComment on above:Performed By: #### HH #### [facility] [address] [place] [address] Dr. Shayne RoldanHemoglobin (Bld) [Mass/Vol]14.5 g/gEWbzbqp18.0-16.0The [facility] HospitalComment on above:Performed By: #### HH #### [facility] [address] [place] [address] Dr. Shayne SpearsH (RBC) [Entitic mass]30.3 gbKygqyg66.7-34.0The [facility] HospitalComment on above:Performed By: #### HH #### [facility] [address] [place] [address] Dr. Shayne SpearsHC (RBC) [Mass/Vol]32.7 g/xVLwcqwv02.9-35.2The [facility] HospitalComment on above:Performed By: #### HH #### [facility] [address] [place] [address] Dr. Shayne SpearsV (RBC) [Entitic vol]92.9 aEEnukky48.0-99.0The [facility] HospitalComselect specialty hospital on above:Performed By: #### HH #### [facility] [address] [place] [address] Dr. Shayne RoldanPLT367 103/aiTmccqt456-909Qnb [facility] HospitalComselect specialty hospital on above: Performed By: #### HH #### [facility] [address] [place] [address] Dr. Shayne RoldanRBC4.78 106/ulNormal4.20-5.40The [facility] HospitalComselect specialty hospital on above:Performed By: #### HH #### [facility] [address] [place] [address] Dr. Shayne RoldanWBC9.9 103/ulNormal4.0-11.0The [facility] HospitalComselect specialty hospital on above: Performed By: #### HH #### [facility] [address] [place] [address] Dr. Shayne RoldanMAGNESIUMon 57-50-0228Wtmoafune [Mass/Vol]1.6 mg/dLCritically low 1.8-2.4The [facility] HospitalComment on above:Performed By: #### MG, RENAL, URIC #### [facility] [address] [place] [address] Dr. Shanye RoldanRENAL FUNCTION PANELon 06-51-6563Vocioan [Mass/Vol]3.4 g/dLNormal 3.4-5.0The [facility] HospitalComment on above:Performed By: #### MG, RENAL, URIC #### [facility] [address] [place] [address] Dr. Shayne RoldanCalcium [Mass/Vol]8.7 mg/dLNormal8.5-10.1[facility] Comment on above:Performed By: #### MG, RENAL, URIC #### [facility] [address] [place] [address] Dr. Shayne RoldanChloride [Moles/Vol]104 mmol/FSbdwkv68-952Ouy [facility] Comment on above:Performed By: #### MG, RENAL, URIC #### [facility] [address] [place] [address] Dr. Shayne RoldanCO2 [Moles/Vol]25.9 mmol/BEbrisl41.0-32.0[facility] Comment on above:Performed By: #### MG, RENAL, URIC #### [facility] [address] [place] [address] Dr. Shayne RoldanCreatinine [Mass/Vol]1.19 mg/dLCritically high0.55-1.02The [facility] HospitalComment on above:Performed By: #### MG, RENAL, URIC #### [facility] [address] [place] [address] Dr. Bella ChangEGFR-AF CXEFVOFU21 mL/min/1.01r3Sdcqugwqre low>=60The [facility] HospitalComment on above:Performed By: #### MG, RENAL, URIC #### [facility] [address] [place] [address] [address] Bella ChangEGFR-NON AF JLVCKSPL09 mL/min/1.59y0Zlvhwczabt low>=60The [facility] HospitalComment on above:Performed By: #### MG, RENAL, URIC #### [facility] [address] [place] [address] [address] Shayne RoldanGlucose [Mass/Vol]193 mg/dLCritically wlbz09-723Uju [facility] HospitalComment on above:Performed By: #### MG, RENAL, URIC #### [facility] [address] [place] [address] [address] Shayne RoldanPhosphate [Mass/Vol]3.2 mg/dLNormal2.6-4.7The [facility] Comment on above:Performed By: #### MG, RENAL, URIC #### [facility] [address] [place] [address] [address] Shayne RoldanPotassium [Moles/Vol]3.9 mmol/LNormal3.5-5.1The [facility] Comment on above:Performed By: #### MG, RENAL, URIC #### [facility] [address] [place] [address] [address] Shayne RoldanSodium [Moles/Vol]140 mmol/PDzxvdh726-950Aqg [facility] Comment on above:Performed By: #### MG, RENAL, URIC #### [facility] [address] [place] [address] [address] Shayne RoldanUrea nitrogen [Mass/Vol]17.0 mg/dLNormal7.0-18.0The [facility] HospitalComment on above:Performed By: #### MG, RENAL, URIC #### [facility] [address] [place] [address] [address] Shayne RoldanUA RANDOM W/MICROSCOPICon 42-87-4400GQPFBWHQLTQZQYgjzrxvvRXLI SEENHolzer Medical Center – JacksonComment on above:Performed By: #### MG, RENAL, URIC #### [facility] [address] [place] [address] [address] Shayne RoldanBilirubin Ql (U)NegativeNormalNEGATIVEHolzer Medical Center – Jackson Comment on above:Performed By: #### MG, RENAL, URIC #### [facility] [address] [place] [address] [address] Shayne Lomeli SEENNormalNONE SEENHolzer Medical Center – JacksonComment on above:Performed By: #### MG, RENAL, URIC #### [facility] [address] [place] [address] [address] Shayne Sierra (U)CLEARNormalCLEARHolzer Medical Center – JacksonComment on above: Performed By: #### MG, RENAL, URIC #### [facility] [address] [place] [address] [address] Shayne Au (U)LT. YELLOWNormalYELLOWHolzer Medical Center – JacksonComment on above:Performed By: #### MG, RENAL, URIC #### [facility] [address] [place] [address] [address] Shayne RoldanCrystals LM Nom (Urine sed)NONE SEENNormalNONE SEENHolzer Medical Center – JacksonComment on above:Performed By: #### MG, RENAL, URIC #### [facility] [address] [place] [address] [address] Bella ChangEpithelial cells LM Ql (Urine sed)RARENormalNONE SEEN /RAREHolzer Medical Center – JacksonComment on above:Performed By: #### MG, RENAL, URIC #### [facility] [address] [place] [address] [address] Shayne RoldanGlucose Ql (U)NegativeNormalNEGATIVEHolzer Medical Center – JacksonComment on above:Performed By: #### MG, RENAL, URIC #### [facility] [address] [place] [address] [address] Shayne RoldanHemoglobin Ql (U)NegativeNormalNEGATIVEHolzer Medical Center – Jackson Comment on above:Performed By: #### MG, RENAL, URIC #### [facility] [address] [place] [address] [address] Shayne RoldanKetones Ql (U)NegativeNormalNEGATIVEHolzer Medical Center – JacksonComment on above:Performed By: #### MG, RENAL, URIC #### [facility] [address] [place] [address] Dr. Shayne RoldanLEUKOCYTESNegativeNormalNEGATIVEThe [facility] HospitalComment on above:Performed By: #### MG, RENAL, URIC #### [facility] [address] [place] [address] Dr. Shayne GrecoCOUSNONMir SEENNormalNONE SEENThe [facility] HospitalComment on above:Performed By: #### MG, RENAL, URIC #### [facility] [address] [place] [address] Dr. Shayne Gordontrite Ql (U)NegativeNormalNEGATIVEThe [facility] HospitalComment on above:Performed By: #### MG, RENAL, URIC #### [facility] [address] [place] [address] Dr. Shayne RoldanpH (U)5.0 [pH]Normal5-9The [facility] HospitalComment on above: Performed By: #### MG, RENAL, URIC #### [facility] [address] [place] [address] Dr. Shayne RlodanCrxqdMVQ3-8Miwjse3-9Aea Toledo Hospitalment on above:Performed By: #### MG, RENAL, URIC #### [facility] [address] [place] [address] Dr. Shayne RoldanSPEC GRAVITY1.487Qwndlf8.005-<=1.025The [facility] HospitalComment on above:Performed By: #### MG, RENAL, URIC #### [facility] [address] [place] [address] Dr. Shayne Espinoza PROTEINNegativeNormalNEGATIVE/ TRACEThe [facility] Comment on above:Performed By: #### MG, RENAL, URIC #### [facility] [address] [place] [address] Dr. Shayne Dennybilinogen Qn (U)0.2 {Rogelio'U}/dLNormal0.2 - 1.0The [facility] HospitalComment on above:Performed By: #### MG, RENAL, URIC #### [facility] [address] [place] [address] Dr. Shayne RoldanWBC0-2AbnormalNONE SEENHolzer Medical Center – JacksonComselect specialty hospital on above: Performed By: #### MG, RENAL, URIC #### [facility] [address] [place] [address] [address] Shayne Daniel ACID SERUMon 33-48-1202Tumqy [Mass/Vol]6.1 mg/dLCritically high2.6-6.0The [facility] HospitalComment on above:Performed By: #### MG, RENAL, URIC #### [facility] [address] [place] [address] [address] Shayne Wood T PROTEIN CREAT RATIOon 81-52-6050Nsjabxb (U) [Mass/Vol] 13.0 mg/dLCritically high<=12.0The [facility] on above:Performed By: #### MG, RENAL, URIC #### [facility] [address] [place] [address] [address] Shayne Wheeler PROT CREAT RAT0.16NoOhioHealth O'Bleness HospitalComment on above: Performed By: #### MG, RENAL, URIC #### [facility] [address] [place] [address] [address] Shayne Wood CREAT83.60 mg/gRQrittj12.00-300.00[facility] Comment on above:Performed By: #### MG, RENAL, URIC #### [facility] [address] [place] [address] [address] Shayne RoldanVITAMIN D 25 OHon 17-53-6750VIQ D 25-OH41.6 ng/mLNormalTrumbull Regional Medical Center on above:Performed By: #### MG, RENAL, URIC #### [facility] [address] [place] [address] Dr. Shayne Vilchis RANGESSEE [facility] Medical CenterComselect specialty hospital on above: Result Comment: <20 ng/mL Vit D deficient 20 - <30 ng/mL Vit D insufficient 30 - 100 ng/mL Vit D sufficient >100 ng/mL Potential ToxicityPerformed By: #### MG, RENAL, URIC #### [facility] [address] [place], [place] [address] Dr. Shayne RoldanXR CHEST 2 Von 09-49-1437RD CHEST 2 VEXAMINATION: XR CHEST 2 V HISTORY: Cough COMPARISON: Chest x-rays 06/08/2022 TECHNIQUE: PA and lateral chest x-rays FINDINGS: The lung parenchyma is free of consolidation or infiltrate. No pneumothorax or pleural effusion. The cardiac, mediastinal and hilar contours are normal. The visualized osseous structures exhibit no gross abnormality. IMPRESSION: No acute cardiopulmonary abnormality. Electronically authenticated by: BRITTANY GALDAMEZ Date: 2023-02-22 16:15[facility] HospitalMG MAMM SCREEN 3D PRATEEK CADon 82-63-0756ZF MAMM SCREEN 3D PRATEEK CAD Patient: DIANA CHAMPION Exam Date: 12/15/2022 : 1955 Gender:F Ordering : DR JACK HALL . Admission #: [id number] Family : Order #: [id number] CLICK HERE TO VIEW EXAM RADIOLOGY REPORT PROCEDURE: MAMMOGRAM SCREENING 3D BILATERAL CAD COMPARISON: MG MAMM SCREEN 3D PRATEEK CAD, 11/26/2021. INDICATIONS: Calculator Name NCI Breast Cancer Risk Assessment Tool 5 Year Breast Cancer Risk 1.20% Lifetime Breast Cancer Risk 4.40% Personal Breast Cancer No Personal Ovarian Cancer No Treatments Excision, radiation, chemotherapy Family Cancers None LOCATION: [facility] BREAST COMPOSITION: Almost entirely fatty. [...] by: Brittany Walters MD on 12/15/2022 at 10:51SCCI Hospital LimaXR DEXA BONE DENSITYon 10-71-6455RW DEXA BONE DENSITYEXAMINATION: XR DEXA BONE DENSITY, [...] Electronically authenticated by: STEPH GRANADOS Date: 2022-12-15 09:50[facility] ACOG PANEL 2: 30 to 65on 11-16-2022..NormalTrumbull Regional Medical Center on above:Performed By: #### [id number] #### [facility] [address] [place] [address] Dr. Shayne RoldanAge [facility] ACOG TestingCommentNoParma Community General Hospital on above:Result Comment: <21 or >65 or no age providedPerformed By: #### [id number] #### [facility] [address] [place] [address] Dr. Shayne RoldanDIAGNOSIS:CommentMemorial Health System [facility] on above: Result Comment: NEGATIVE FOR INTRAEPITHELIAL LESION OR MALIGNANCY.Performed By: #### [id number] #### [facility] [address] [place] [address] Dr. Shayne RoldanMethodology:CommentNoParma Community General Hospital on above: Result Comment: This liquid based ThinPrep(R) pap test was screened with the use of an image guided system.Performed By: #### [id number] #### [facility] [address] [place] [address] Dr. Shayne RoldanNote:CommentMemorial Health System Selby General Hospital on above:Result Comment: The Pap smear is a screening test designed to aid in the detection of premalignant and malignant conditions of the uterine cervix. It is not a diagnostic procedure and should not be used as the sole means of detecting cervical cancer. Both false-positive and false-negative reports do occur. .Performed By: #### [id number] #### [facility] [address] [place] [address] Dr. Shayne RoldanPerformed by:CommentMemorial Health System Selby General Hospital on above: Result Comment: Dakota Aguilar, Industrial Hygiene Engineer (ASCP)Performed By: #### [id number] #### [facility] [address] [place] [address] Dr. Shayne RoldanSpecimen adequacy:CommentMemorial Health System Selby General Hospital on above:Result Comment: Satisfactory for evaluation. Endocervical and/or squamous metaplastic cells (endocervical component) are present.Performed By: #### [id number] #### [facility] [address] [place] [address] Dr. Shayne RoldanRENAL FUNCTION PANELon 20-21-7811Tcawitl [Mass/Vol]3.4 g/dLNormal 3.4-5.0The [facility] HospitalComment on above:Performed By: #### MG, RENAL, URIC #### [facility] [address] [place] [address] Dr. Shayne RoldanCalcium [Mass/Vol]8.4 mg/dLCritically low8.5-10.1The [facility] on above:Performed By: #### MG, RENAL, URIC #### [facility] [address] [place] [address] Dr. Shayne RoldanChloride [Moles/Vol]103 mmol/OGeptor61-703RgbHolzer Medical Center – Jackson Comment on above:Performed By: #### MG, RENAL, URIC #### [facility] [address] [place] [address] Dr. Shayne RoldanCO2 [Moles/Vol]27.8 mmol/NHdebac31.0-32.0[facility] Comment on above:Performed By: #### MG, RENAL, URIC #### [facility] [address] [place] [address] Dr. Shayne RoldanCreatinine [Mass/Vol]1.02 mg/dLNormal0.55-1.02The [facility] HospitalComment on above:Performed By: #### MG, RENAL, URIC #### [facility] [address] [address] [address] Shayne PeñaGFR-AF BELIZEAN>60Normal>=60The [facility] HospitalComment on above:Performed By: #### MG, RENAL, URIC #### [facility] [address] [place] [address] Dr. Shayne PeñaGFR-NON AF YWXVQOQU33 mL/min/1.14r1Phhcttdfet low>=60The [facility] HospitalComment on above:Performed By: #### MG, RENAL, URIC #### [facility] [address] [place] [address] Dr. Shayne RoldanGlucose [Mass/Vol]110 mg/dLCritically uixs84-141Nij [facility] HospitalComment on above:Performed By: #### MG, RENAL, URIC #### [facility] [address] [place] [address] Dr. Shayne RoldanPhosphate [Mass/Vol]2.3 mg/dLCritically low2.6-4.7The [facility] County HospitalComment on above:Performed By: #### MG, RENAL, URIC #### [facility] [address] [place] [address] Dr. Shayne RoldanPotassium [Moles/Vol]3.2 mmol/LCritically low3.5-5.1The [facility]ment on above:Performed By: #### MG, RENAL, URIC #### [facility] [address] [place] [address] Dr. Shayne RoldanSodium [Moles/Vol]138 mmol/YXfdlln361-465Oso [facility] Comment on above:Performed By: #### MG, RENAL, URIC #### [facility] [address] [place] [address] Dr. Shayne RoldanUrea nitrogen [Mass/Vol]14.0 mg/dLNormal7.0-18.0The [facility] HospitalComment on above:Performed By: #### MG, RENAL, URIC #### [facility] [address] [place] [address] Dr. Shayne BarkerH INTACTon 95-85-6606RQH, Yciith06 pg/aUPsqyed43-79Wvo [facility] Hospitalment on above:Performed By: #### MG, RENAL, URIC #### [facility] [address] [place] [address] Dr. Shayne RoldanHEMOGRAM AND PLATELon 44-18-6915Hdmequtemx (Bld) [Volume fraction]39.8 %Akoqpq96.0-48.0The [facility] HospitalComment on above:Performed By: #### MG, RENAL, URIC #### [facility] [address] [place] [address] Dr. Shayne RoldanHemoglobin (Bld) [Mass/Vol]13.4 g/aSPkklil76.0-16.0The [facility] HospitalComment on above:Performed By: #### MG, RENAL, URIC #### [facility] [address] [place] [address] Dr. Shayne Spears (RBC) [Entitic mass]30.5 saAztmqj48.7-34.0The [facility] HospitalComment on above:Performed By: #### MG, RENAL, URIC #### [facility] [address] [place] [address] Dr. Shayne Spears (RBC) [Mass/Vol]33.7 g/qRAdyfil53.9-35.2The [facility] HospitalComment on above:Performed By: #### MG, RENAL, URIC #### [facility] [address] [place] [address] Dr. Shayne Spears (RBC) [Entitic vol]90.5 hLZiocam10.0-99.0The [facility]ment on above:Performed By: #### MG, RENAL, URIC #### [facility] [address] [place] [address] Dr. Shayne RoldanPLT299 103/tqBvuetg774-689Cku [facility] HospitalComment on above: Performed By: #### MG, RENAL, URIC #### [facility] [address] [place] [address] Dr. Shayne RoldanRBC4.40 106/ulNormal4.20-5.40The [facility] HospitalComment on above:Performed By: #### MG, RENAL, URIC #### [facility] [address] [place] [address] Dr. Shayne RoldanWBC8.8 103/ulNormal4.0-11.0The [facility] HospitalComment on above: Performed By: #### MG, RENAL, URIC #### [facility] [address] [place] [address] Dr. Shayne RoldanMAGNESIUMon 16-02-5243Uogeiyxtt [Mass/Vol]1.5 mg/dLCritically low 1.8-2.4The [facility] HospitalComment on above:Performed By: #### MG, RENAL, URIC #### [facility] [address] [place] [address] Dr. Shayne SernaAL FUNCTION PANELon 79-34-1874Tpidjdq [Mass/Vol]3.5 g/dLNormal 3.4-5.0The [facility] HospitalComment on above:Performed By: #### MG, RENAL, URIC #### [facility] [address] [place] [address] Dr. Shayne RoldanCalcium [Mass/Vol]8.4 mg/dLCritically low8.5-10.1The [facility] HospitalComment on above:Performed By: #### MG, RENAL, URIC #### [facility] [address] [place] [address] Dr. Shayne RoldanChloride [Moles/Vol]101 mmol/BBuovyj89-285Kld [facility] Comment on above:Performed By: #### MG, RENAL, URIC #### [facility] [address] [place] [address] Dr. Shayne RoldanCO2 [Moles/Vol]29.5 mmol/PUjknzk01.0-32.0[facility] Comment on above:Performed By: #### MG, RENAL, URIC #### [facility] [address] [place] [address] Dr. Shayne RoldanCreatinine [Mass/Vol]1.04 mg/dLCritically high0.55-1.02The [facility] Hospitalment on above:Performed By: #### MG, RENAL, URIC #### [facility] [address] [place] [address] Dr. Shayne PeñaGFR-AF BELIZEAN>60Normal>=60The [facility] HospitalComment on above:Performed By: #### MG, RENAL, URIC #### [facility] [address] [place] [address] Dr. Shayne PeñaGFR-NON AF XNQIFNCM53 mL/min/1.81a9Xenogmlhrh low>=60The [facility] Hospitalment on above:Performed By: #### MG, RENAL, URIC #### [facility] [address] [place] [address] Dr. Shayne RoldanGlucose [Mass/Vol]92 mg/pKKsftpm00-500GzlHolzer Medical Center – [facility] Comment on above:Performed By: #### MG, RENAL, URIC #### [facility] [address] [place] [address] Dr. Shayne RoldanPhosphate [Mass/Vol]2.4 mg/dLCritically low2.6-4.7The [facility] HospitalComment on above:Performed By: #### MG, RENAL, URIC #### [facility] [address] [place] [address] Dr. Shayne RoldanPotassium [Moles/Vol]2.8 mmol/LCritically low3.5-5.1The [facility] Hospitalment on above:Performed By: #### MG, RENAL, URIC #### [facility] [address] [place] [address] Dr. Shayne RoldanSodium [Moles/Vol]137 mmol/RFzujjl840-204Jgp [facility] Comment on above:Performed By: #### MG, RENAL, URIC #### [facility] [address] [place] [address] Dr. Shayne RoldanUrea nitrogen [Mass/Vol]10.0 mg/dLNormal7.0-18.0The [facility] HospitalComment on above:Performed By: #### MG, RENAL, URIC #### [facility] [address] [address] [address] Shayne Espinoza RANDOM W/MICROSCOPICon 06-00-6659NKNOBXLCPIXBEIofcfklhWQDL SEENHolzer Medical Center – JacksonComment on above:Performed By: #### UAMIC #### [facility] [address] [address] [address] Shayne RoldanBilirubin Ql (U)NegativeNormalNEGATIVEZanesville City Hospital on above:Performed By: #### UAMIC #### [facility] [address] [address] [address] Shayne RoldanCASTNONE SEENNormalNONE SEENHolzer Medical Center – JacksonComment on above:Performed By: #### UAMIC #### [facility] [address] [place] [address] Dr. Shayne RoldanClarity (U)CLEARNormalCLEARHolzer Medical Center – JacksonComment on above: Performed By: #### UAMIC #### [facility] [address] [place] [address] Dr. Shayne RoldanColor (U)LT. YELLOWNormalYChillicothe VA Medical CenterComment on above:Performed By: #### UAMIC #### [facility] [address] [place] [address] Dr. Shayne RoldanCrystals LM Nom (Urine sed)NONE SEENNormalNONE SEENHolzer Medical Center – JacksonComment on above:Performed By: #### UAMIC #### [facility] [address] [address] [address] Bella ChangEpithelial cells LM Ql (Urine sed)FEWAbnormalNONE SEEN /RAREThe [facility] HospitalComment on above:Performed By: #### UAMIC #### [facility] [address] [place] [address] Dr. Shayne RoldanGlucose Ql (U)NegativeNormalNEGATIVEHolzer Medical Center – JacksonComment on above:Performed By: #### UAMIC #### [facility] [address] [place] [address] Dr. Shayne RoldanHemoglobin Ql (U)NegativeNormalNEGATIVEHolzer Medical Center – [place] Comment on above:Performed By: #### UAMIC #### [facility] [address] [place] [address] Dr. Shayne Foster Ql (U)NegativeNormalNEGATIVEHolzer Medical Center – JacksonComment on above:Performed By: #### UAMIC #### [facility] [address] [place] [address] Dr. Shayne RoldanLEUKOCYTESTRACEAbnormalNEGATIVEThe [facility] HospitalComment on above:Performed By: #### UAMIC #### [facility] [address] [place] [address] Dr. Shayne GrecoCOUSNONMir SEENNormalNONE SEENHolzer Medical Center – JacksonComment on above:Performed By: #### UAMIC #### [facility] [address] [place] [address] Dr. Shayne Meyer Ql (U)NegativeNormalNEGATIVEHolzer Medical Center – JacksonComment on above:Performed By: #### UAMIC #### [facility] [address] [place] [address] Dr. Shayne RoldanpH (U)6.0 [pH]Normal5-9Hol[facility] Center – JacksonComment on above: Performed By: #### UAMIC #### [facility] [address] [place] [address] Dr. Shayne RoldanRBCNELLEN SEENAbnormal0-2The [facility] HospitalComment on above: Performed By: #### UAMIC #### [facility] [address] [place] [address] Dr. Shayne RoldanSPEC GRAVITY<=1.830Mejznwze8.005-<=1.025[facility] Comment on above:Performed By: #### UAMIC #### [facility] [address] [place] [address] Dr. Shayne Espinoza PROTEINNegativeNormalNEGATIVE/ TRACEHolzer Medical Center – Jackson Comment on above:Performed By: #### UAMIC #### [facility] [address] [place] [address] Dr. Yilan ChangUrobilinogen Qn (U)0.2 {Rogelio'U}/dLNormal0.2 - 1.0The [facility] HospitalComment on above:Performed By: #### UAMIC #### [facility] [address] [address] [address] Shayne RoldanWBC5-10AbnormalNONE SEENThe [facility] HospitalComment on above: Performed By: #### UAMIC #### [facility] [address] [place] [address] Dr. Shayne RoldanURIC ACID SERUMon 99-47-6509Pslxy [Mass/Vol]6.5 mg/dLCritically high2.6-6.0The [facility] HospitalComment on above:Performed By: #### MG, RENAL, URIC #### [facility] [address] [place] [address] Dr. Shayne Wood T PROTEIN CREAT RATIOon 58-50-6436Jchixkh (U) [Mass/Vol]4.8 mg/dLNormal<=12.0The [facility] HospitalComment on above:Performed By: #### URTPCR #### [facility] [address] [place] [address] Dr. Shayne Wheeler PROT CREAT RAT0.09SCCI Hospital LimaComment on above: Performed By: #### URTPCR #### [facility] [address] [place] [address] Dr. Shayne Wood CREAT52.65 mg/gEOsrepz18.00-300.00[facility] Comment on above:Performed By: #### URTPCR #### [facility] [address] [place] [address] Dr. Shayne RoldanVITAMIN D 25 OHon 82-41-1283CDJ D 25-OH38.9 ng/mLNormalHolzer Medical Center – JacksonComselect specialty hospital on above:Performed By: #### MG, RENAL, URIC #### [facility] [address] [place] [address] Dr. Shayne Leslie D RANGESSEE BELOWSCCI Hospital LimaComment on above: Result Comment: <20 ng/mL Vit D deficient 20 - <30 ng/mL Vit D insufficient 30 - 100 ng/mL Vit D sufficient >100 ng/mL Potential ToxicityPerformed By: #### MG, RENAL, URIC #### [facility] [address] [place] [address] Dr. Shayne RoldanIMMUNOGLOBULINS IGA/IGM/IGG/IGE QUANTITAon 07-12-2022 Immunoglobulin A, Qn, Ewomu290 mg/aGTwckux15-073Jas [facility] on above:Result Comment: Performed at: CBPerformed By: #### MG, RENAL, URIC #### [facility] [address] [place] [address] Dr. Shayne RoldanImmunoglobulin E, Total32 IU/mLNormal6-495[facility] Comment on above:Result Comment: Performed at: BNPerformed By: #### MG, RENAL, URIC #### [facility] [address] [place] [address] Dr. Shayne RoldanImmunoglobulin G, Qn, Gtguu793 mg/qEJylcod497-0324Nqq [facility] Hospitalment on above:Result Comment: Performed at: CBPerformed By: #### MG, RENAL, URIC #### [facility] [address] [place] [address] Dr. Shayne RoldanImmunoglobulin M, Qn, Serum75 mg/zKLauebo14-112Kik [facility] on above:Result Comment: Performed at: CBPerformed By: #### MG, RENAL, URIC #### [facility] [address] [place] [address] Dr. Shayne Bridges AUTO DIFFon 05-70-2050PCAF #0.1 103/ulNormal0.0-0.1[facility] on above:Performed By: #### MG, RENAL, URIC #### [facility] [address] [place] [address] Dr. Shayne RoldanBasophils/100 WBC (Bld)0.7 %Normal0.2-2.0[facility] Comment on above:Performed By: #### MG, RENAL, URIC #### [facility] [address] [place] [address] Dr. Shayne Irizarry #0.4 103/ulNormal0.0-0.7The [facility] HospitalComment on above: Performed By: #### MG, RENAL, URIC #### [facility] [address] [place] [address] Dr. Shayne Peñaosinophils/100 WBC (Bld)4.4 %Normal0.9-7.0[facility] Comment on above:Performed By: #### MG, RENAL, URIC #### [facility] [address] [place] [address] Dr. Shayne Peñarythrocyte distribution width (RBC) [Ratio]12.6 %Nfzedk77.0-15.0 The [facility] HospitalComment on above:Performed By: #### MG, RENAL, URIC #### [facility] [address] [place] [address] Dr. Shayne RoldanHematocrit (Bld) [Volume fraction]40.2 %Adwtgs32.0-48.0The [facility] HospitalComment on above:Performed By: #### MG, RENAL, URIC #### [facility] [address] [place] [address] Dr. Shayne RoldanHemoglobin (Bld) [Mass/Vol]13.6 g/hPZeqiso64.0-16.0The [facility] HospitalComment on above:Performed By: #### MG, RENAL, URIC #### [facility] [address] [place] [address] Dr. Shayne Sy #0.07 10e3/ulCritically high0.00-0.03[facility] Comment on above:Performed By: #### MG, RENAL, URIC #### [facility] [address] [place] [address] Dr. Shayne Sy %0.8 %Critically high0.0-0.5The [facility] HospitalComment on above:Performed By: #### MG, RENAL, URIC #### [facility] [address] [place] [address] Dr. Shayne Rojo #2.3 103/ulNormal1.2-3.8The [facility] HospitalComment on above:Performed By: #### MG, RENAL, URIC #### [facility] [address] [place] [address] Dr. Shayne Hanleyhocytes/100 WBC (Bld)24.7 %Qpcvcy18.5-60.0The [facility] HospitalComment on above:Performed By: #### MG, RENAL, URIC #### [facility] [address] [place] [address] Dr. Shayne Griffin DIFF REQNONormalThe [facility] HospitalComment on above: Performed By: #### MG, RENAL, URIC #### [facility] [address] [place] [address] Dr. Shayne Spears (RBC) [Entitic mass]30.7 qqIgwsqb56.7-34.0The [facility] HospitalComment on above:Performed By: #### MG, RENAL, URIC #### [facility] [address] [place] [address] Dr. Shayne Spears (RBC) [Mass/Vol]33.8 g/gSWrhcnn45.9-35.2The [facility] HospitalComment on above:Performed By: #### MG, RENAL, URIC #### [facility] [address] [place] [address] Dr. Shayne Spears (RBC) [Entitic vol]90.7 zWJufqth20.0-99.0The [facility] HospitalComment on above:Performed By: #### MG, RENAL, URIC #### [facility] [address] [place] [address] Dr. Shayne Germain #0.7 103/ulNormal0.3-0.8The [facility] HospitalComment on above:Performed By: #### MG, RENAL, URIC #### [facility] [address] [place] [address] Dr. Shayne Haocytes/100 WBC (Bld)7.7 %Normal1.7-12.0[facility] Comment on above:Performed By: #### MG, RENAL, URIC #### [facility] [address] [place] [address] Dr. Shayne Brock #5.7 103/ulNormal1.4-6.5The [facility] HospitalComment on above:Performed By: #### MG, RENAL, URIC #### [facility] [address] [place] [address] Dr. Shayne Servinutrophils/100 WBC (Bld)61.7 %Gutexy76.0-75.0The [facility] HospitalComment on above:Performed By: #### MG, RENAL, URIC #### [facility] [address] [place] [address] Dr. Shayne Berry mean volume (Bld) [Entitic vol]8.8 fLCritically low 9.5-13.5The [facility] HospitalComment on above:Performed By: #### MG, RENAL, URIC #### [facility] [address] [place] [address] Dr. Shayne RoldanPLT279 103/qfJcxzaa264-063Dvb [facility] HospitalComment on above: Performed By: #### MG, RENAL, URIC #### [facility] [address] [place] [address] Dr. Shayne RoldanRBC4.43 106/ulNormal4.20-5.40The [facility] HospitalComment on above:Performed By: #### MG, RENAL, URIC #### [facility] [address] [place] [address] Dr. Shayne RoldanWBC9.1 103/ulNormal4.0-11.0The [facility] HospitalComment on above: Performed By: #### MG, RENAL, URIC #### [facility] [address] [place] [address] Dr. Shayne RoldanCovid-19 PCR ([facility])on 79-27-4217KLXY-CoV-2 (COVID-19) RNA KAYLEE+probe Ql (Unsp spec)Not detectedNormalNOT DETECTEDThe [facility] Comment on above:Result Comment: This test is not yet approved or cleared by the [place] FDA. When there are no FDA-approved or cleared tests available, and other criteria are met, FDA can make tests available under an emergency access mechanism called an Emergency Use Authorization (EUA). The EUA for this test is supported by the Occupational Therapy Asst of Health and Human Service's (HHS's) declaration [...] SARS-CoV-2.Performed By: #### MG, RENAL, URIC #### [facility] [address] [place] [address] Dr. Shayne RoldanXR CHEST 2 Von 15-97-4211QD CHEST 2 VEXAM: CHEST 2 VIEWS HISTORY: [...] Electronically authenticated by: NARDA LONDONO Date: 2022-06-08 19:58NoOhioHealth O'Bleness HospitalCovid-19 PCR ([facility])on 89-36-9683JNRP-CoV-2 (COVID-19) RNA KAYLEE+probe Ql (Unsp spec)Not detectedNormalNOT DETECTEDThe [facility] Comment on above:Result Comment: This test is not yet approved or cleared by the [place] FDA. When there are no FDA-approved or cleared tests available, and other criteria are met, FDA can make tests available under an emergency access mechanism called an Emergency Use Authorization (EUA). The EUA for this test is supported by the Occupational Therapy Asst of Health and Human Service's (HHS's) declaration [...] consistent with SARS-CoV-2.Performed By: #### CVDTBH #### [facility] [address] [address] [address] Shayne Casas AXIALon 23-81-8900FCVU [facility] Department of Radiology [address] [place] [id number] Patient Name: DIANA CHAMPION : 1955 Sex: F Age: Race: White Pt. Location: Patient Status: D Ordered Date: 02/24/2022 1:25:00 PM Completed Date: 03/01/2022 09:46 AM Requesting Provider: CINDA ANTONIO Attending Provider: Report Copy To: Signs & Symptoms: Z78.0 Asymptomatic menopausal state I10 History: [place] Comments: Exam: DEXA AXIAL DEXA AXIAL 03/01/2022 [...] characteristics. Electronically signed: Luzma Marks. Transcribed by: [email or web address], User Resident: Electronically Signed by: LUZMA MARKS @ 03/02/2022 01:07 [facility] CenterCOLIOSIS 2 [facility] [id number] 2 [facility] Department of Radiology [address] [place] [id number] Patient Name: DIANA CHAMPION : 1955 [...] spine. Electronically signed: Hugo Lynn. Transcribed by: [email or web address], User Resident: Electronically Signed by: HUGO LYNN @ 02/26/2022 11:07 AMNormalThe Lutheran HospitalComment on above:Order Comment: Views (X-RAY, SCOLIOSIS): PA, Lateral evaluateCT LUMBAR SPINE W CONTRASTon 60-04-9060EO LUMBAR SPINE W CONTRASTUnLouis Stokes [facility] Department of Radiology [address] [place] [phone] Patient Name: DIANA CHAMPION : 1955 [...] L1-2. Electronically signed: Gaurang Hess. Transcribed by: [email or web address], User Resident: Electronically Signed by: GAURANG HESS @ 01/26/2022 08:58 AMNormalThe Luther[facility] HospitalComment on above:Order Comment: , CT MYELOGRAM>PAPER WORK IN CHARTLUMBAR MYELOGRAMon 43-28-9295EOFEVN MYELOGRAM [facility] Department of Radiology [address] [place] [address] Patient Name: DIANA CHAMPION : 1955 Sex: F Age: Race: White Pt. Location: 85 Patient Status: O Ordered Date: 01/09/2022 9:00:00 AM Completed Date: 01/24/2022 02:37 PM Requesting Provider: JOO LINN Attending Provider: JOO LINN Report Copy To: UNKNOWN, PHYSICIAN Signs & Symptoms: M54.16 Radiculopathy, lumbar region I10 History: Jessica Is patient on thinners? 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 Consent was obtained. Timeout: [place] protocol timeout verification performed. PROCEDURE: Estimated blood [...] report. Electronically signed: Greg Mcmahan. Transcribed by: [email or web address], User Resident: DEBBIE JI Electronically Signed by: GREG MCMAHAN @ 01/24/2022 04:07 PM I personally read this/these film(s) with this residentBrown Memorial HospitalComment on above:Order Comment: , CT MYELOGRAM> PAPER WORK SCANNED IN CHART , CT MYELOGRAM> PAPER WORK SCANNEDIN CHART , , , Ordering Provider - JOO LINN MD , HIP LEFT 1 OR 2 VWS WITH PELVIS on 64-93-7584BCN LEFT 1 OR 2 VWS WITH PELVISUnLouis Stokes [facility] Department of Radiology [address] [place] [phone] Patient Name: DIANA CHAMPION : 1955 [...] hardware. Electronically signed: Joe Matthew. Transcribed by: [email or web address], User Resident: Electronically Signed by: JOE MATTHEW @ 01/09/2022 04:45 [facility] FoundationComment on above:Order Comment: Evaluate Vital Signs Date TimeVital SignValuePerforming PhnjpkgzmPsaejflu09-17-3679 08:50-0400Body rzlies926.56 cmBrittany Reese VALIDATION LEADER-C Work Phone: [phone]-[facility]10-13-2025 08:50-0400 Body mass index (BMI) [Ratio]39.4 kg/c7Revwlwaw Reese VALIDATION LEADER-C Work Phone: [phone]-[facility]10-13-2025 08:50-0400 Body gaotmhhlvey99.1 [degF]Aida Reese VALIDATION LEADER-C Work Phone: [facility]10-13-2025 08:50-0400 Body xovprn551.38 kgBrbenson Reese VALIDATION LEADER-C Work Phone: [phone]-[facility]10-13-2025 08:50-0400 Diastolic blood gmoffded68 mm[Hg]Aida Reese VALIDATION LEADER-C Work Phone: [phone] [place], [place] 7578010-13-2025 08:50-0400 Heart rate82 /minBrittany Reese VALIDATION LEADER-C Work Phone: [phone] [place], [place] 7578010-13-2025 08:50-0400 Inhaled oxygen flow rate3 L/minBrittany Reese VALIDATION LEADER-C Work Phone: [phone]10-13-2025 08:50-0400 Respiratory rate20 /minBrittany Reese VALIDATION LEADER-C Work Phone: [phone]10-13-2025 08:50-0400 SaO2% (BldA) [Mass fraction]92 %Aida Reese VALIDATION LEADER-C Work Phone: [phone]10-13-2025 08:50-0400 Systolic blood megcdxng745 mm[Hg]Aida Reese VALIDATION LEADER-C Work Phone: [phone] [place], [place] 7578009-29-2025 10:11-0400 Body .56 cmBrelissakaushal Reese VALIDATION LEADER-C Work Phone: 1([phone])710-[address] [place], [place] 7578009-29-2025 10:11-0400 Body mass index (BMI) [Ratio]39.3 kg/v2Mqrecswq Reese VALIDATION LEADER-C Work Phone: [phone] [place], [place] 7578009-29-2025 10:11-0400 Body pjwnsspjwoc74.8 [degF]Aida Reese VALIDATION LEADER-C Work Phone: [phone] [place], [place] 7578009-29-2025 10:11-0400 Body ulyesj677.87 kgBrelissakaushal Reese VALIDATION LEADER-C Work Phone: [facility]09-29-2025 10:11-0400 Diastolic blood mm[Hg]Aida Reese VALIDATION LEADER-C Work Phone: [phone]-[facility]09-29-2025 10:11-0400 Heart rate93 /minBrittany Reese VALIDATION LEADER-C Work Phone: 1([phone])193-[address] [place], [place] 7578009-29-2025 10:11-0400 Inhaled oxygen flow rate3 L/minBrittany Reese VALIDATION LEADER-C Work Phone: [phone]09-29-2025 10:11-0400 Respiratory rate18 /minBrittany Reese VALIDATION LEADER-C Work Phone: [phone] [address]09-29-2025 10:11-0400 SaO2% (BldA) [Mass fraction]93 %Aida Reese VALIDATION LEADER-C Work Phone: [phone]09-29-2025 10:11-0400 Systolic blood mm[Hg]Aida Reese VALIDATION LEADER-C Work Phone: [phone]09-11-2025 09:08-0400 Body udumsf510.56 cmBrittany Reese VALIDATION LEADER-C Work Phone: 1([phone])012-[address] [place], [place] 7578009-11-2025 09:08-0400 Body mass index (BMI) [Ratio]40.1 kg/i2Pqjsjumx Reese VALIDATION LEADER-C Work Phone: 1(074)653-[address] [place], [place] 7578009-11-2025 09:08-0400 Body wizwkjjbkbm69.1 [degF]Aida Reese VALIDATION LEADER-C Work Phone: 1(318)216-[address] [place], [place] 7578009-11-2025 09:08-0400 Body .25 kgBrittany Reese VALIDATION LEADER-C Work Phone: 1(283)549-[address] [place], [place] 7578009-11-2025 09:08-0400 Diastolic blood mm[Hg]Aida Reese VALIDATION LEADER-C Work Phone: [facility]09-11-2025 09:08-0400 Heart rate74 /minBrittany Reese VALIDATION LEADER-C Work Phone: [facility]09-11-2025 09:08-0400 Inhaled oxygen flow rate3 L/minBrittany Reese VALIDATION LEADER-C Work Phone: [facility]09-11-2025 09:08-0400 Respiratory rate24 /minBrittany Reese VALIDATION LEADER-C Work Phone: [phone]-[facility]09-11-2025 09:08-0400 SaO2% (BldA) [Mass fraction]95 %Aida Reese VALIDATION LEADER-C Work Phone: [facility]09-11-2025 09:08-0400 Systolic blood mm[Hg]Aida Reese VALIDATION LEADER-C Work Phone: [facility]07-14-2025 08:43-0400 Body mass index (BMI) [Ratio]40.58 kg/m2Kaylene Torreshholz VALIDATION LEADER Work Phone: [facility] HospitalCensmfuogz36-46-8572 08:43-0400Body temperature 98.49 [degF]Kaylene Ferdinandholz VALIDATION LEADER Work Phone: [facility] HospitalWldcrfrkqt51-77-6895 08:43-0400Body .23 kgLisa Brianhholz VALIDATION LEADER Work Phone: [facility] HospitalUhzryemtvt59-55-4087 08:43-0400Diastolic blood exqgnbyh13 mm[Hg]Kaylene Aichholz VALIDATION LEADER Work Phone: [facility] HospitalTbptmglsie45-08-4890 08:43-0400Heart rate74 /min Kaylene Aichholz VALIDATION LEADER Work Phone: [facility] HospitalJtqtztkdoo05-84-7745 08:43-0400Respiratory rate22 /minLisa Ferdinandholz VALIDATION LEADER Work Phone: [facility] HospitalMwguffxvjy45-65-7102 08:43-3939EuB6% (BldA) [Mass fraction]94 %Kaylenemeng Streeterholz VALIDATION LEADER Work Phone: [facility] HospitalEdkufpkuhs68-84-0212 08:43-0400Systolic blood zplgytyl286 mm[Hg]Kaylene Ferdinandholz VALIDATION LEADER Work Phone: [facility] HospitalKjfblmvwme77-22-6183 11:03-0400Body mass index (BMI) [Ratio]41.2 kg/m2Lisa Ferdinandholz VALIDATION LEADER Work Phone: [facility] HospitalBcxuchcogu03-89-2846 11:03-0400Body temperature 98.2 [degF]Kaylene Ferdinandholz VALIDATION LEADER Work Phone: [facility] HospitalSlrywrlsce49-95-9337 11:03-0400Body .86 kgLisa Ferdinandholz VALIDATION LEADER Work Phone: [facility] HospitalSzklbducom02-59-9853 11:03-0400Diastolic blood unfvbgkj99 mm[Hg]Kaylene Ferdinandholz VALIDATION LEADER Work Phone: [facility] HospitalWsdlhxdeki68-61-9120 11:03-0400Heart rate73 /min Kaylene Ferdinandholz VALIDATION LEADER Work Phone: [facility] HospitalZgooikjron38-25-0918 11:03-0400Respiratory rate22 /minLisa Brianhholz VALIDATION LEADER Work Phone: [facility] HospitalMhmodetscb64-71-1479 11:03-5630GlS8% (BldA) [Mass fraction]93 %Kaylene Ferdinandholz VALIDATION LEADER Work Phone: [facility] HospitalUrfyuidyhx30-54-1506 11:03-0400Systolic blood oxvpqrqy837 mm[Hg]Kaylene Brianhholz VALIDATION LEADER Work Phone: [facility] HospitalDqgugklmqf24-72-8839 09:57-0400Body temperature 98.06 [degF]MAG BLOUNT [facility]05-19-2025 09:57-0400Diastolic blood mm[Hg]MAG BLOUNT [facility]05-19-2025 09:57-0400Respiratory rate16 /minJENNSHAUNNA BLOUNT [facility]05-19-2025 09:57-0400Systolic blood premltvj631 mm[Hg]MAG BLOUNT [facility]04-14-2025 08:31-0400Body phaquzwhygo28.8 [degF]Kaylene López VALIDATION LEADER Work Phone: [facility] HospitalAeajlyinhq60-75-8801 08:31-0400Diastolic blood pehvgmhl54 mm[Hg]Kaylene Rene VALIDATION LEADER Work Phone: [facility] HospitalJavmtzdvki28-43-6649 08:31-0400Heart rate85 /min Kaylene Rene VALIDATION LEADER Work Phone: [facility] HospitalDtehzachst70-20-9528 08:31-0400Respiratory rate24 /minLisa López VALIDATION LEADER Work Phone: [facility] HospitalFslhtyvzyq99-74-9389 08:31-2318KbR8% (BldA) [Mass fraction]90 %Kaylene Rene VALIDATION LEADER Work Phone: [place] [address]Hpcbxxpgtu09-01-0081 08:31-0400Systolic blood ejsbbbkt115 mm[Hg]Kaylene Rene VALIDATION LEADER Work Phone: [facility] HospitalSeczydhykk12-00-1289 09:50-0400Body nvesahmjhxi60 [degF]Kaylenemeng López VALIDATION LEADER Work Phone: [facility] HospitalSzocihyvwx30-73-3497 09:50-0400Diastolic blood pefogudg28 mm[Hg]Kaylene Owenz VALIDATION LEADER Work Phone: [facility] HospitalGmhjmdefdu55-56-8961 09:50-0400Heart rate68 /min Kaylene Ferdinandholz VALIDATION LEADER Work Phone: [facility] HospitalMallkshqwx76-30-1128 09:50-0400Respiratory rate26 /minLisa Aichholz VALIDATION LEADER Work Phone: [facility] HospitalKwoaouofcx52-15-6562 09:50-4635AmR3% (BldA) [Mass fraction]93 %Kaylene Ferdinandholz VALIDATION LEADER Work Phone: [facility] HospitalImnqqtcjxm08-73-2948 09:50-0400Systolic blood wtfvurau261 mm[Hg]Kaylene Ferdinandholz VALIDATION LEADER Work Phone: [facility] HospitalPiwauxrkeq63-30-9790 14:54-0500Body mass index (BMI) [Ratio]40.2 kg/m2Lisa Ferdinandholz VALIDATION LEADER Work Phone: [facility] HospitalXyqqnelomm51-33-6951 14:54-0500Body temperature 99.61 [degF]Kaylene Ferdinandholz VALIDATION LEADER Work Phone: [facility] HospitalRzcapxcala89-92-6579 14:54-0500Body otaokh072.23 kgLisa Ferdinandholz VALIDATION LEADER Work Phone: [facility] HospitalZrsclzwkqv96-39-6674 14:54-0500Diastolic blood kfytxspg00 mm[Hg]Kaylene Ferdinandholz VALIDATION LEADER Work Phone: [facility] HospitalEcheqeczid64-73-9269 14:54-0500Heart rate78 /min Kaylene Brianhholz VALIDATION LEADER Work Phone: [facility] HospitalYqspvkozlj82-40-8812 14:54-0500Respiratory rate26 /minLisa Aichholz VALIDATION LEADER Work Phone: [facility] HospitalKemjycsqqt25-28-4577 14:54-5570QgY0% (BldA) [Mass fraction]91 %Kaylene Ferdinandholz VALIDATION LEADER Work Phone: [facility] HospitalMvnkfimdcz41-13-4020 14:54-0500Systolic blood wekznujf383 mm[Hg]Kaylene López VALIDATION LEADER Work Phone: [facility] HospitalCgogjmgneq57-76-8336 13:08-0500Body hcnefz301.6 cmBrittany Reese VALIDATION LEADER Work Phone: [facility] HospitalLkxfbrrveq47-31-8605 13:08-0500Body mass index (BMI) [Ratio]40.51 kg/r3Pezmfppg Reese VALIDATION LEADER Work Phone: [facility] HospitalHighdhggdh92-40-0420 13:08-0500Body temperature 97.9 [degF]Aida Reese VALIDATION LEADER Work Phone: [facility] HospitalPjrvmmtdft58-59-7690 13:08-0500Body vwhejp059.05 kgBrittany Reese VALIDATION LEADER Work Phone: [facility] HospitalZumpqbmsri05-97-4432 13:08-0500Diastolic blood ivrplrkl26 mm[Hg]Aida Reese VALIDATION LEADER Work Phone: [facility] HospitalHvyhieyrbm32-63-8358 13:08-0500Heart rate79 /min Aida Reese VALIDATION LEADER Work Phone: [facility] HospitalJvjnmagaun33-33-5558 13:08-0500Respiratory rate20 /minBrelissaany Reese VALIDATION LEADER Work Phone: [facility] HospitalEmytexlbix67-02-3575 13:08-6913DkM4% (BldA) [Mass fraction]96 %Aida Reese VALIDATION LEADER Work Phone: noSaint [facility] CenterXyyrqwfaxa81-69-3153 13:08-0500Systolic blood yevcqhej073 mm[Hg]Aida Reese VALIDATION LEADER Work Phone: noSaint [facility] CenterSyzljsegfx64-84-7183 10:24-0500Body mass index (BMI) [Ratio]40.75 kg/h2Fgrkknpz Reese VALIDATION LEADER Work Phone: [facility] HospitalVhcdohiard86-63-1371 10:24-0500Body temperature 98.71 [degF]Aida Hartpatrick VALIDATION LEADER Work Phone: [facility] HospitalCrndzsbyrs19-73-7769 10:24-0500Body orjyng631.68 kgAida Hartpatrick VALIDATION LEADER Work Phone: [facility] HospitalBxbpsfvymx99-40-6323 10:24-0500Diastolic blood soaqqinq47 mm[Hg]Aida Hartpatrick VALIDATION LEADER Work Phone: [facility] HospitalUjqwsyuaqg04-36-2883 10:24-0500Heart rate68 /min Aida Reese VALIDATION LEADER Work Phone: [facility] HospitalYyusvrfmem91-05-4712 10:24-0500Respiratory rate18 /minAida Hartpatrick VALIDATION LEADER Work Phone: [facility] HospitalNxnqtegxwz68-56-5758 10:24-5153YmF5% (BldA) [Mass fraction]92 %Aida Hartpatrick VALIDATION LEADER Work Phone: [facility] HospitalWdottgldis13-43-0073 10:24-0500Systolic blood mm[Hg]Aida Hartpatrick VALIDATION LEADER Work Phone: [facility] HospitalWsgfjrpcry72-11-0115 14:29-0500Blood Pressure LocationJENNIFER JOSE ALEJANDRO [facility]12-10-2024 14:29-0500Diastolic blood mm[Hg]MAG JOSE ALEJANDRO [facility]12-10-2024 14:29-0500Heart rate64 /minJENNIFER JOSE ALEJANDRO [facility]12-10-2024 14:29-0500Respiratory rate20 /minJENNIFER JOSE ALEJANDRO [facility]12-10-2024 14:29-0500Systolic blood jjgiqwfw687 mm[Hg]MAG BLOUNT [facility]12-02-2024 14:22-0500Body xngnke955.6 cmBrittany Reese VALIDATION LEADER Work Phone: [facility] HospitalWykrvmmper21-19-3441 14:22-0500Body mass index (BMI) [Ratio]40.85 kg/t3Nwxvwtit Reese VALIDATION LEADER Work Phone: [facility] HospitalMgsrzzbnzl95-74-0446 14:22-0500Body ompceo258.96 kgBrittany Reese VALIDATION LEADER Work Phone: [facility] HospitalZtakimijnj65-60-7917 14:22-0500Diastolic blood mvqqxpok16 mm[Hg]Aida Reese VALIDATION LEADER Work Phone: [facility] HospitalNqadduokdh42-39-1490 14:22-0500Heart rate64 /min Aida Reese VALIDATION LEADER Work Phone: [facility] HospitalAgyfvcphre56-32-4231 14:22-0500Respiratory rate18 /minBrittany Reese VALIDATION LEADER Work Phone: [facility] HospitalAlyxjyqglr56-65-0016 14:22-6202VuB8% (BldA) [Mass fraction]93 %Aida Reese VALIDATION LEADER Work Phone: [facility] HospitalOvtdpnezuz10-38-4341 14:22-0500Systolic blood jqfxmbgo422 mm[Hg]Aida Reese VALIDATION LEADER Work Phone: [facility] HospitalFiexjlyrgw58-89-8416 12:53-0400Body krnyah829.56 cmBrittany Reese VALIDATION LEADER-C Work Phone: [facility]10-31-2024 12:53-0400 Body giktmp113.32 kgBrittany Reese VALIDATION LEADER-C Work Phone: [facility]10-14-2024 11:41-0400 Body mass index (BMI) [Ratio]40.34 kg/l6Bxpvqept Reese VALIDATION LEADER Work Phone: [facility] HospitalCtmngtwiap08-80-7119 11:41-0400Body temperature 97.59 [degF]Aida Reese VALIDATION LEADER Work Phone: [facility] HospitalZxjacsprnv27-13-5302 11:41-0400Body pfiszx378.59 kgBrittany Reese VALIDATION LEADER Work Phone: [facility] HospitalIihyytoyiy65-05-3808 11:41-0400Diastolic blood nopvummq04 mm[Hg]Aida Reese VALIDATION LEADER Work Phone: [facility] HospitalKchqpheyma29-23-8372 11:41-0400Heart rate57 /min Aida Reese VALIDATION LEADER Work Phone: [facility] HospitalJupncmcxbt92-65-7167 11:41-1757ZtC9% (BldA) [Mass fraction]90 %Aida Reese VALIDATION LEADER Work Phone: [facility] HospitalVyhtcyqrbw86-00-9416 11:41-0400Systolic blood bfsqsumu444 mm[Hg]Aida Reese VALIDATION LEADER Work Phone: [facility] HospitalDydtfgjwcs11-20-2653 08:25-0400Body kusisy471.6 cmBrelissaany Reese VALIDATION LEADER Work Phone: [facility] HospitalZyosobcrlr02-62-6412 08:25-0400Body mass index (BMI) [Ratio]41.02 kg/k0Pttnydpu Reese VALIDATION LEADER Work Phone: [facility] HospitalJiyhnkukzx32-43-7697 08:25-0400Body temperature 98.1 [degF]Aida Reese VALIDATION LEADER Work Phone: [facility] HospitalXpluvesjqk10-71-8209 08:25-0400Body zaccbm330.41 kgBrittany Reese VALIDATION LEADER Work Phone: noSaint [facility] CenterLeejmqaauu62-17-6083 08:25-0400Diastolic blood xcorytdx94 mm[Hg]Aida Hartpatrick VALIDATION LEADER Work Phone: noSaint [facility] CenterZedysdtjdb10-96-7754 08:25-0400Heart rate83 /min Aida Hartpatrick VALIDATION LEADER Work Phone: [facility] HealthcareComment on above:94% Q694-37-1314 08:25-0400Systolic blood vlnzemkb653 mm[Hg]Aida Reese VALIDATION LEADER Work Phone: [facility] HospitalHlepqnmdlo64-96-0093 10:30-0400Body .1 cmSteven Roshon Work Phone: 1(086)[address] [place], [place] 0586705-09-2024 10:30-0400 Body mass index (BMI) [Ratio]39 kg/e9Rwfmox Roshon Work Phone: 1(941)[address] [place], [place] 0586705-09-2024 10:30-0400 Body gbosyucdyzi07.4 [degF]Steph Roshon Work Phone: 1(879)[address] [place], [place] [address]586705-09-2024 10:30-0400 Body ymjiur154.36 kgSteven Roshon Work Phone: 1(458)[address] [place], [place] 0586705-09-2024 10:30-0400 Diastolic blood hialmmva77 mm[Hg]Steph Roshon Work Phone: 1(603)[address] [place], [place] 0586705-09-2024 10:30-0400 Heart rate77 /minSteven Roshon Work Phone: 1(493)[address] [place], [place] 0586705-09-2024 10:30-0400 Inhaled oxygen flow rate3 L/minSteven Roshon Work Phone: 1(882)[address]05-09-2024 10:30-0400 Respiratory rate20 /minSteven Roshon Work Phone: [facility]05-09-2024 10:30-0400 SaO2% (BldA) [Mass fraction]92 %Steph Collier Work Phone: [facility]05-09-2024 10:30-0400 Systolic blood zuwfllux703 mm[Hg]Steph Collier Work Phone: [facility]10-12-2023 09:20-0400 Body mkuoky417.1 cmAbdul Joana Other [facility] [place] Other 10-12-2023 09:20-0400Body mass index (BMI) [Ratio]38.1 kg/i7Ghnel Joana Other [facility] [place] Other 10-12-2023 09:20-0400Body ylvsreizzxj22.8 [degF]Herberth Joana Other [facility] [place] Other 10-12-2023 09:20-0400Body yvfaqe548.87 kgAbdul Joana Other [facility] [place] Other 10-12-2023 09:20-0400Diastolic blood udjcezgp86 mm[Hg] Herberth Joana Other [facility] [place] Other 10-12-2023 09:20-0400Respiratory rate18 /minAbdul Joana Other [facility] [place] Other 10-12-2023 09:20-0858SqO4% (BldA) [Mass fraction]94 % Herberth Joana Other [facility] [place] Other 10-12-2023 09:20-0400Systolic blood cncwvaqp391 mm[Hg] Herberth Joana Other [employer] [place] Other 04-27-2023 10:00-0400Body jguhrn687.1 cmAbdul Joana Other [place] Other 04-27-2023 10:00-0400Body mass index (BMI) [Ratio] 37.29 kg/h2Decsx Joana Other [facility] [place] Other 04-27-2023 10:00-0400Body yxofhskqmyz68.9 [degF]Herberth Joana Other [facility] [place] Other 04-27-2023 10:00-0400Body bilaeh253.65 kgAbdul Joana Other [facility] [place] Other 04-27-2023 10:00-0400Diastolic blood lguyxrnh97 mm[Hg] Herberth Joana Other [facility] [place] Other 04-27-2023 10:00-0400Respiratory rate20 /minAbdul Joana Other [facility] Other 04-27-2023 10:00-7182SxB0% (BldA) [Mass fraction]96 % Herberth Joana Other [place] Other 04-27-2023 10:00-0400Systolic blood gewcblhz994 mm[Hg] Herberth Joana Other [facility] [place] Other 02-02-2023 09:30-0500Diastolic blood vixwixft02 mm[Hg] MD Shaikh Ohara Work Phone: [facility]02-02-2023 09:30-0500 Heart rate55 /minMD Shaikh Pérezmick Work Phone: 1(441)314-[address] [place], [place] 7578002-02-2023 09:30-0500 Respiratory rate16 /min Messer Lev Work Phone: 1(965)467-[address] [place], [place] 7578002-02-2023 09:30-0500 SaO2% (BldA) [Mass fraction]96 %MD Shaikh Ohara Work Phone: 1(362)183-[address] [place], [place] 7578002-02-2023 09:30-0500 Systolic blood ltusejfe115 mm[Hg]MD Shaikh Ohara Work Phone: 1([phone]02-02-2023 06:54-0500 Body cafgte236.56 cm Shaikh Lev Work Phone: 1(433)589-[address] [place], [place] 7578002-02-2023 06:54-0500 Body luheqlacbvy85.2 [degF]MD Shaikh Ohara Work Phone: 1(813)346-[address] [place], [place] 7578002-02-2023 06:54-0500 Body nprjyx296.32 kg Shaikh Lev Work Phone: 1(661)575-[address] [place], [place] 7578010-04-2022 11:00-0400 Body uxkvnw344.1 cmAbdul Joana Other [facility] [place] Other 10-04-2022 11:00-0400Body mass index (BMI) [Ratio] 37.87 kg/q5Iwtaj Joana Other [place] Other 10-04-2022 11:00-0400Body gqnvbkqiywz95.2 [degF]Herberth Joana Other [place] Other 10-04-2022 11:00-0400Body ilmdly200.24 kgAbdul Joana Other [facility] [place] Other 10-04-2022 11:00-0400Diastolic blood nrnbzkio22 mm[Hg] Herberth Joana Other [facility] [place] Other 10-04-2022 11:00-0400Respiratory rate20 /minAbdul Joana Other [facility] [place] Other 10-04-2022 11:00-8263IdK8% (BldA) [Mass fraction]95 % Herberth Joana [facility] Other 10-04-2022 11:00-0400Systolic blood wwnerfrn911 mm[Hg] Herberth Joana Other [facility] [place] Other 01-12-2022 10:40-0500Body ojafqc538.1 cmAbdul Joana Other [facility] Other 01-12-2022 10:40-0500Body mass index (BMI) [Ratio] 37.97 kg/p6Xpnsf Joana Other [facility] [place] Other 01-12-2022 10:40-0500Body voaqvsdrkjl51.8 [degF]Herberth Joana Other [facility] [place] Other 01-12-2022 10:40-0500Body ebuyld536.51 kgAbdul Joana Other [facility] [place] Other 01-12-2022 10:40-0500Diastolic blood mm[Hg] Herberth Joana Other [facility] Other 01-12-2022 10:40-0500Respiratory rate18 /minAbdul Joana Other [facility] [place] Other 01-12-2022 10:40-8646TkE1% (BldA) [Mass fraction]94 % Herberth Joana Other [facility] Other 01-12-2022 10:40-0500Systolic blood pvpkfpyz880 mm[Hg] Herberth Joana Other [facility] Other 10-25-2021 13:15-0400Body jpaiik054.1 cmAmber Ginty Other [facility] [place] Other 10-25-2021 13:15-0400Body mass index (BMI) [Ratio] 36.61 kg/c2Rbbcg Ginty Other [facility] [place] Other 10-25-2021 13:15-0400Body drnwxnfodyt50.7 [degF]Rena Ginty Other [facility] [place] Other 10-25-2021 13:15-0400Body .79 kgAmber Ginty Other [facility] [place] Other 10-25-2021 13:15-7209ZyM8% (BldA) [Mass fraction]90 % Rena Ginty Other [facility] [place] Other Encounters Encounter DateEncounter TypeCare ProviderFacilityStart: 87-18-1354czkvwjhzkz Amalia TannaFacility:[facility] [place]Start: 08-18-2025 End: 08-61-3981esuqlplvaoMevzfuqy N Reese VALIDATION LEADER-C Work Phone: [facility] Work Phone: Start: 08-18-2025 End: 70-12-0535Ndisoil encounter procedureLisa Paolo López VALIDATION LEADER-C-[facility] Work Phone: Start: 08-04-2025 End: 72-43-6682Ryribsfh Result EncounterLisa Rene VALIDATION LEADER Work Phone: noms External Department UnsolicitedStart: 08-04-2025 End: 47-43-4594Wzkwzzvt Result EncounterLisa Rene VALIDATION LEADER Work Phone: n[facility] External Department UnsolicitedStart: 08-04-2025 End: 95-61-5913waprmqckukMnddsotw N Mary Ann VALIDATION LEADER-C Work Phone: [facility] Work Phone: Start: 08-04-2025 End: 16-93-5125Zsieydn encounter procedureLisa Paolo López VALIDATION LEADER-C-[facility] Work Phone: Start: 07-22-2025 End: 32-48-8785sloyogxxaxHeumlh TannaFacility:[facility] [place]vueStart: 07-22-2025 End: 69-73-6314Cwgspmb encounter procedureLakhadijah Alonsoa [facility] [place] start: 74-02-1042Moa-patient / Non-visitLisa Paolo López VALIDATION LEADER-C-[facility] Work Phone: Start: 07-17-2025 End: 71-57-9173mkvkeeqlsyMpuveona N Mary Ann VALIDATION LEADER-C Work Phone: [facility] Work Phone: Start: 07-17-2025 End: 46-57-5033Zgemtuh encounter Lauren López VALIDATION LEADER-C-[facility] Work Phone: Start: 80-48-0850Mlrzxnj encounter procedureAida Reese VALIDATION LEADER-C Work Phone: [facility] 07-16-2025 End: 70-42-9085ckwwbqtadyWDQMF A PETITTINodajuan AvailableStart: 07-16-2025 End: 22-25-1851Hqpeqe outpatient visit 15 minutesEmalex Lazo MD Work Phone: noms [facility] DermatologyComment on above:Seborrheic keratosis (Primary Dx); Lentigines; History of SCC (squamous cell carcinoma) of skinStart: 07-16-2025 End: 74-54-8005Wztyvj flowsheetJessica Lazo MD Work Phone: noms [facility]atologyStart: 07-16-2025 End: 34-06-8689Dvyirk flowsheetJessica Lazo MD Work Phone: noms [facility]atologyStart: 03-59-9732Kiz-patient / Non-visitSraymundo Dickinson DO-[facility] Work Phone: Start: 07-08-2025 End: 74-02-8398sqabqpojjnLzcyeo TannaFacility:[facility] [place]vueStart: 07-08-2025 End: 90-96-4509Cxzwmtc encounter procedureAmalia Stephens [facility] [place] start: 06-18-2025 End: 25-58-0581OlfoeuAmbx Aichholz NP Work Phone: [facility] FMComment on above:Moderate episode of recurrent major depressive disorder (HCC)Start: 06-11-2025 End: 81-26-7536ztpdmkvronIxybro TannaFacility:[facility] [place]vueStart: 06-11-2025 End: 74-70-1389Azoqtco encounter procedureAmalia Stephens [facility] [place] start: 06-04-2025 End: 56-95-1360MjntkrLkle Aichholz VALIDATION LEADER Work Phone: noMS CWM FMComment on above:Skin pustuleStart: 05-19-2025 End: 51-62-5999Essdun flowsheetLisa Aichholz VALIDATION LEADER Work Phone: noms [facility] FMStart: 05-19-2025 End: 57-00-1982Qppwif flowsheetLisa Aichholz VALIDATION LEADER Work Phone: noms [facility] FMStart: 05-19-2025 End: 63-39-8112Jllkbdmmz encounterLisa Aichholz VALIDATION LEADER Work Phone: noms C[facility] FMStart: 05-19-2025 End: 84-48-5299Cihvlb outpatient visit 25 minutesLisa Brianhholz VALIDATION LEADER Work Phone: noMS CWM FMComment on above:Moderate episode of recurrent major depressive disorder (HCC) (Primary Dx); Morbid (severe) obesity due to excess calories (CMS-HCC); Candidiasis of breast; Skin pustule; RLS (restless legs syndrome)Start: 05-19-2025 End: 70-80-4691dmgrgqrntbDXZP AICHHOLZNot AvailableStart: 05-12-2025 End: 34-39-3811MdkpaxDdtr Aichholz VALIDATION LEADER Work Phone: noms C[facility] FMComment on above:Chronic heart failure with preserved ejection fraction (HCC) (Primary Dx); Edema of both lower extremitiesStart: 05-12-2025 End: 06-54-9936wifenfdmvcMtmaiox [place] Alicia DRAPERFacility:[facility] [place] Start: 04-30-2025 End: 49-11-6811Benmitglk Result EncounterGeneric External Data ProviderNOMS External Department UnsolicitedStart: 04-30-2025 End: 19-51-2649Dpcvdmdme Result EncounterGeneric External Data ProviderNOMS External Department UnsolicitedStart: 04-29-2025 End: 64-98-1515QhvvviSzfl Brianhholz VALIDATION LEADER Work Phone: NOMS CWM FMComment on above:Restless leg syndrome Start: 04-27-2025 End: 08-16-9076GdothjFzmg Aichholz VALIDATION LEADER Work Phone: NOMS CWM FMComment on above:Chronic bilateral low back pain without sciaticaStart: 04-23-2025 End: 60-20-8120DjftxiSrlu Aichholz VALIDATION LEADER Work Phone: [facility] CWM FMComment on above:Moderate episode of recurrent major depressive disorder (HCC) (Primary Dx)Start: 04-09-2025 End: 69-63-9607Lnnxiz flowsheetLisa Aichholz VALIDATION LEADER Work Phone: [facility] C[facility] FMStart: 04-09-2025 End: 47-75-6504Ppxwhi flowsheetLisa Aichholz VALIDATION LEADER Work Phone: [facility] FMStart: 04-09-2025 End: 44-32-2324Yxcztx outpatient visit 25 minutesLisa Brianhsuryz VALIDATION LEADER Work Phone: [facility] CWM FMComment on above:Moderate episode of recurrent major depressive disorder (CMS/HCC) (Primary Dx); Pulmonary emphysema, unspecified emphysema type (CMS/HCC); Chronic respiratory failure with hypoxia (CMS/HCC); Morbid (severe) obesity due to excess calories (CMS/HCC); Restless leg syndromeStart: 04-09-2025 End: 08-02-9757lufnztauzxQJIV AICHHOLZNot AvailableStart: 03-24-2025 End: 26-44-5655tvqejlwlvmXGWHTDOD E PERRYFacility:[facility] [place]Start: 03-24-2025 End: 21-60-0720Afxvmpm encounter procedureJEADAMARIS BLOUNT [facility] start: 03-10-2025 End: 61-22-6696Xdfttokgf Result EncounterGeneric External Data ProviderNOMS External Department UnsolicitedStart: 03-10-2025 End: 51-95-7519Sieteccle Result EncounterGeneric External Data ProviderNOMS External Department UnsolicitedStart: 03-03-2025 End: 78-49-1082Tjsccvdee Result EncounterLisa Brianhholz VALIDATION LEADER Work Phone: [facility] External Department UnsolicitedStart: 03-03-2025 End: 20-26-5199Eqpfwdsxh Result EncounterLisa Brianhholz VALIDATION LEADER Work Phone: [facility] External Department UnsolicitedStart: 02-26-2025 End: 31-39-2963RcfouwReld Aichholz VALIDATION LEADER Work Phone: [facility] CWM FMComment on above:Gastroesophageal reflux disease without esophagitisStart: 02-17-2025 End: 38-02-6730Ugiseg flowsheetLisa Aichholz VALIDATION LEADER Work Phone: [facility] CWM FMStart: 02-17-2025 End: 01-11-4717Izegvq flowsheetLisa Aichholz VALIDATION LEADER Work Phone: [facility] CWM FMStart: 02-17-2025 End: 21-86-2969Egwuud outpatient visit 25 minutesLisa Aichholz VALIDATION LEADER Work Phone: [facility] CWM FMComment on above:Edema of both lower extremities (Primary Dx); Spinal stenosis, lumbar region without neurogenic claudication; Chronic heart failure with preserved ejection fraction (CMS/HCC); Chronic respiratory failure with hypoxia (CMS/HCC); Severe persistent asthma, uncomplicated (CMS/HCC); Gastroesophageal reflux disease, unspecified whether esophagitis present; Morbid (severe) obesity due to excess calories (CMS/HCC); RLS (restless legs syndrome); CandidiasisStart: 02-17-2025 End: 74-95-9918krpjuqjvbmLKWP BRIANHHOLZNot AvailableStart: 01-23-2025 End: 02-47-1352knxdtcapnmCNGWGeorgetown Behavioral Hospitaltart: 01-16-2025 End: 27-84-3342Jybhzu outpatient visit 25 minutesKaylene López VALIDATION LEADER Work Phone: noms CWM FMComment on above:Pneumonia [...] recurrent major depressive disorder (CMS/HCC)Start: 01-16-2025 End: 09-23-2428xeufcffxpbLCGK AICHHOLZNot AvailableStart: 01-15-2025 End: 51-06-7738SoupsfVwjk Aichholz VALIDATION LEADER Work Phone: noms CWM FMComment on above:Pneumonia due to infectious organism, unspecified laterality, unspecified part of lung (Primary Dx)Start: 01-02-2025 End: 24-73-8715Qhfdch outpatient visit 25 minutesKaylene López VALIDATION LEADER Work Phone: noms CWM FMComment on above:Flu-like symptoms (Primary Dx); Morbid (severe) obesity due to excess calories (CMS/HCC); Body mass index (BMI) 40.0-44.9, adult (CMS/HCC); Pulmonary emphysema, unspecified emphysema type (CMS/HCC); Chronic respiratory failure with hypoxia (CMS/HCC); Essential hypertension (CMS/HCC)Start: 01-02-2025 End: 16-58-8582ifnrwgcmehFOIY AICHHOLZNot AvailableStart: 01-02-2025 End: 48-27-6837Aeojfp Jose López VALIDATION LEADER Work Phone: noms CWM FMStart: 01-02-2025 End: 55-05-5119Gtsrys Jose López VALIDATION LEADER Work Phone: noms CWM FMStart: 01-02-2025 End: 95-89-1284Lmpjbonjp Result EncounterGeneric External Data ProviderNOMS External Department UnsolicitedStart: 12-17-2024 End: 57-61-4171Vpsgcf outpatient visit 15 minutesJessica Lazo MD Work Phone: noms SWS DERMComment on above:Seborrheic keratosis (Primary Dx); History of SCC (squamous cell carcinoma) of skin; LentiginesStart: 12-17-2024 End: 03-78-5367cmlzrwbwcyEJEMR A PETITTINot AvailableStart: 12-17-2024 End: 94-37-0474Pyoffd Clementina KING Work Phone: noms MIC[facility] ORTHOPAEDICSStart: 12-17-2024 End: 04-98-9903Otpnbv Clementina KING Work Phone: noms MIC[facility]EL ORTHOPAEDICSStart: 12-17-2024 End: 26-22-6502hspmhodlygGAVLYEC J MEYERNot AvailableStart: 12-17-2024 End: 35-44-5107Utybqr outpatient visit 25 minutesMafarrah KING Work Phone: noms FB ORTHOPAEDICSComment on above:Acute pain of right knee (Primary Dx); History of total right knee replacement; Right hip pain; Arthritis of right hipStart: 12-15-2024 End: 47-72-0560YcujgeMrgzttzqStephen Reese VALIDATION LEADER Work Phone: noms CWM FMComment on above:Moderate episode of recurrent major depressive disorder (CMS/HCC)Start: 12-13-2024 End: 27-70-8190Yjlazrmichele Lazo MD Work Phone: noms SWS DERMStart: 12-13-2024 End: 78-94-0435Xpefjn flowsheetEmalex Lazo MD Work Phone: noms SWS DERMStart: 12-13-2024 End: 07-10-2181Vxdasn outpatient visit 10 minutesEmalex Lazo MD Work Phone: noms SWS DERMComment on above:Nevus lipomatosus cutaneus superficialis (Primary Dx); Squamous cell carcinoma of skin of chestStart: 12-13-2024 End: 54-63-0279xqcjtbwpksEKOYJ Meng PETITTINot AvailableStart: 12-05-2024 End: 49-68-0269BsnlheNxncnszk Reese VALIDATION LEADER Work Phone: noms CWM FMComment on above:Restless leg syndrome Start: 11-30-2024 End: 97-77-7766LditiuCzrvqgxx Reese VALIDATION LEADER Work Phone: NOCJ CWM FMComment on above:Gastroesophageal reflux disease without esophagitisStart: 11-28-2024 End: 47-74-5294Ebgqfl flowsheetBrittany Reese VALIDATION LEADER Work Phone: NOST CWM FMStart: 11-28-2024 End: 50-41-1499Dbvira flowsheetBrittany Reese VALIDATION LEADER Work Phone: noms CWM FMStart: 11-28-2024 End: 79-09-9514kgsyqtflcjOTDFLQUR FITZPATRICKNot AvailableStart: 11-28-2024 End: 82-70-5442Tnbjnygmskup care manage srvc 14 day dischargeBrittany Reese VALIDATION LEADER Work Phone: NOHX CWM FMComment on above:Pulmonary emphysema, unspecified emphysema type (CMS/HCC) (Primary Dx)Start: 11-12-2024 End: 16-11-0385Lejuye flowsheetBrittany Reese VALIDATION LEADER Work Phone: NOMS CWM FMStart: 11-12-2024 End: 21-57-7579Aiwcxp flowsheetAida Reese VALIDATION LEADER Work Phone: noms CWM FMStart: 11-12-2024 End: 20-28-7283Slghgj outpatient visit 15 minutesBrelissakaushal Reese VALIDATION LEADER Work Phone: noms CWM FMComment on above:Chronic obstructive pulmonary disease with acute lower respiratory infection (CMS/HCC) (Primary Dx); Primary HSV infection of mouthStart: 11-12-2024 End: 78-29-9686atatgocpacRIAGEAPF FITZPATRICKNot AvailableStart: 10-26-2024 End: 01-45-9589QamnhjFpbbbtwj Reese VALIDATION LEADER Work Phone: noms CWM FMComment on above:Moderate episode of recurrent major depressive disorder (CMS/HCC); Restless leg syndromeStart: 10-17-2024 End: 69-33-8563xwzaptqyyaFKRYJDP [facility] Start: 10-15-2024 End: 14-53-8011vxeobaondsLEFPPKYE E PERRYFacility:FTMCStart: 10-15-2024 End: 88-96-2511Zgi Drop offJENNIFER E JOSE ALEJANDRO [facility] Start: 10-15-2024 End: 90-83-3599HpiqulYoorvgiy Reese VALIDATION LEADER Work Phone: noms CWM FMComment on above:Moderate episode of recurrent major depressive disorder (CMS/HCC)Start: 10-15-2024 End: 30-78-5695gscpucttaeMCMJQTKJ E PERRYFacility:EU BellevueStart: 10-15-2024 End: 89-37-5937Hfymreq encounter procedureJENNIFER E JOSE ALEJANDRO [facility] [place] start: 10-12-2024 End: 41-70-5378HjmzgdTnooektm Reese VALIDATION LEADER Work Phone: noms CWM FMComment on above:Urge incontinenceStart: 10-11-2024 End: 58-54-1856Kiivme flowsheetJayna Canas PA Work Phone: noms SWS DERMStart: 10-11-2024 End: 40-46-4680Ffrgql flowsheetJayan [facility] PA Work Phone: NOFH SWS DERMStart: 10-11-2024 End: 49-52-5936Zfjltds encounter procedureJayna Mc[facility]illhel[facility] PA Work Phone: noms SWS DERMComment on above:Neoplasm of unspecified behavior of bone, soft tissue, and skin (Primary Dx)Start: 10-11-2024 End: 33-29-5803forgqxgjthURXDN NORTHEIMNot AvailableStart: 82-94-2018zjfjkyfjoa MAG PERRYFacility:EU [place]walkStart: 10-07-2024 End: 74-45-0798Hzwzfw outpatient visit 15 minutesBrbenson Hartpatrick VALIDATION LEADER Work Phone: noms CWM FMComment on above:Urge incontinence (Primary Dx); Morbid obesity with BMI of 40.0-44.9, adult (CMS/HCC); 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; Stage 3a chronic kidney disease (HCC) (CMS/HCC); Chronic respiratory failure with hypoxia (CMS/HCC)Start: 10-07-2024 End: 04-59-9680hoxayaswdrBPBQLESB FITZPATRICKNot AvailableStart: 10-07-2024 End: 66-21-4037Iqxfeq flowsheetBrittany Reese VALIDATION LEADER Work Phone: NOMS CWM FMStart: 10-07-2024 End: 35-23-7019Yfewvi flowsheetBrittany Reese VALIDATION LEADER Work Phone: noms CWM FMStart: 09-25-2024 End: 11-54-4190EeetzxBxkylrqm Reese VALIDATION LEADER Work Phone: noms CWM FMComment on above:Restless leg syndrome Start: 09-12-2024 End: 96-42-7087wnyhyheelbIoxpqicr N Reese VALIDATION LEADER-C Work Phone: [facility] Work Phone: Start: 09-12-2024 End: 26-80-1094Tqzukoik ReferredAida Reese VALIDATION LEADER-C Work Phone: [facility] HealthStart: 09-10-2024 End: 72-87-2925Mcnrxr OnlyBrbenson Reese VALIDATION LEADER Work Phone: noms CWM FMComment on above:Vaginal guero (Primary Dx)Start: 09-05-2024 End: 09-47-8595Gychtrfz ReferredAida Hartpatrick VALIDATION LEADER-C Work Phone: [facility] Bbl-Vcj-Zoczqnqu Testing Work Phone: Start: 09-05-2024 End: 97-09-2527Gthonrx encounter procedureNP-C Aida Vidaltrick Work Phone: [facility] Qsu-Sah-Hfltgkfj Testing Work Phone: Start: 09-05-2024 End: 75-46-7881fqdskracmmFA-C Aida Tenorio Reese Work Phone: [facility] Work Phone: Start: 09-03-2024 End: 79-09-5373JnwtkjAngtJuan SERRANO CWM FMComment on above:Gastroesophageal reflux disease without esophagitisStart: 08-19-2024 End: 57-27-1018Xmwsyw flowsheetAida Reese VALIDATION LEADER Work Phone: noms CWM FMStart: 08-19-2024 End: 94-06-3223Gtecld flowsheetAida Brannonzpatrick VALIDATION LEADER Work Phone: noms CWM FMStart: 08-19-2024 End: 35-31-2567Wvttmqifohgj care manage srvc 7 day dischargeEstrellitakaushal Mary Ann VALIDATION LEADER Work Phone: noms CWM FMComment on above:Moderate persistent asthma with exacerbation (CMS/HCC) (Primary Dx); Diarrhea, unspecified typeStart: 08-19-2024 End: 87-21-5542dnjynrddubFNEYGLHD REUBENot AvailableStart: 08-12-2024 End: 90-36-2745Wmvhssiyk Result EncounterSlebron Ohara MD Work Phone: noms External Department UnsolicitedStart: 08-12-2024 End: 15-78-9518Irqrgngbu Result EncounterSlebron Ohara MD Work Phone: noms External Department UnsolicitedStart: 08-12-2024 End: 74-14-9127CoxuocUcrxlznq Reese VALIDATION LEADER Work Phone: noms CWM FMComment on above:Restless leg syndrome Start: 08-08-2024 End: 52-29-6749Awd-patient / Drx-afimsVL-U Aida Reese Work Phone: [facility] Work Phone: Start: 08-08-2024 End: 24-37-9823Alnvjwpdw Result EncounterGeneric External Data ProviderNOMS External Department UnsolicitedStart: 08-08-2024 End: 99-43-8494Hkenchitw Result EncounterGeneric External Data ProviderNOMS External Department UnsolicitedStart: 07-17-2024 End: 90-69-5696WiqajwUkrz Naderer MD Work Phone: noms CWM FMComment on above:Moderate episode of recurrent major depressive disorder (HCC) (CMS/HCC); Urge incontinenceStart: 07-16-2024 End: 12-94-8326JuypvcNehgix Robles MANOMS CWM IMComment on above:Chronic bilateral low back pain without sciaticaStart: 07-15-2024 End: 26-34-4852aisgxplzumPovxzgp Alex Vargas MDFacility:[facility] Start: 07-12-2024 End: 34-39-6069Znisullux Result EncounterBrittany Reese VALIDATION LEADER Work Phone: NOZQ External Department UnsolicitedStart: 07-12-2024 End: 98-61-7929Bdyztbvsd Result EncounterBrittany Reese VALIDATION LEADER Work Phone: noms External Department UnsolicitedStart: 07-11-2024 End: 29-90-1618Wzjjvw flowsheetBrittany Reese VALIDATION LEADER Work Phone: noms CWM FMStart: 07-11-2024 End: 62-78-3454Hruily flowsheetBrittany Reese VALIDATION LEADER Work Phone: noms CWM FMStart: 07-11-2024 End: 39-45-0347olkipamtzhDTXATOWThe [facility] Start: 07-11-2024 End: 48-85-2626Tptocn outpatient visit 25 minutesBrbenson Vidaltrick VALIDATION LEADER Work Phone: noms CWM FMComment on above:Benign essential HTN (CMS/HCC) (Primary Dx); Chronic heart failure with preserved ejection fraction (CMS/HCC); Severe persistent asthma without complication (CMS/HCC); Moderate mixed hyperlipidemia not requiring statin therapy (CMS/HCC); Morbid obesity with BMI of 40.0-44.9, adult (CMS/HCC)Start: 07-02-2024 End: 65-55-9135qasvnkakxzXIXFHXDRegency Hospital [facility] West Start: 67-61-0291Kyn-patient / Gjq-uzaflVS-HZeina Reese Work Phone: [facility] Work Phone: Start: 06-28-2024 End: 17-04-9046Nfpfwkdal Result EncounterGeneric External Data ProviderNOMS External Department UnsolicitedStart: 06-28-2024 End: 02-61-8267Rrmzbqfnd Result EncounterGeneric External Data ProviderNOMS External Department UnsolicitedStart: 92-15-0838mhmtcaokioFASIZNBParkview Health Montpelier Hospitaltart: 06-24-2024 End: 27-88-5328baxhfzufrlQeywuecHeaven Vargas MDFacility:[facility] Start: 06-21-2024 End: 73-43-1026eybrddzrllNOLRTNRRegency Hospital [facility] West Start: 05-29-2024 End: 20-58-2899Lglzyrmdd Result EncounterGeneric External Data ProviderNOMS External Department UnsolicitedStart: 05-29-2024 End: 29-47-3896Vipqbtzdc Result EncounterGeneric External Data ProviderNOMS External Department UnsolicitedStart: 05-13-2024 End: 25-47-3121yfqjudxkcwVIGV [facility] Hospitaltart: 04-03-2024 End: 02-90-9947Nnmpwdhmj Result EncounterSlebron Ohara MD Work Phone: noms External Department UnsolicitedStart: 04-03-2024 End: 17-59-8718Hncpuuapj Result EncounterSlebron Ohara MD Work Phone: noms External Department UnsolicitedStart: 03-27-2024 End: 99-71-6803Gljxiqero Result EncounterGeneric External Data ProviderNOMS External Department UnsolicitedStart: 03-27-2024 End: 22-17-2927Wyrwptogl Result EncounterGeneric External Data ProviderNOMS External Department UnsolicitedStart: 03-14-2024 End: 85-14-2566jrezygfcbsCybaed Roshon Work Phone: [facility] Work Phone: Start: 03-14-2024 End: 18-10-8270Pvgyqff encounter procedureSteven Josiehon Work Phone: [facility] [place] Work Phone: Start: 87-72-3431Owb-patient / Non-visitStenaseem Marinellin Work Phone: [facility] Work Phone: Start: 02-29-2024 End: 68-95-3026Lumsywenc Result EncounterLisa Aichholz VALIDATION LEADER Work Phone: noms External Department UnsolicitedStart: 02-29-2024 End: 60-52-1989Ezxklluvi Result EncounterLisa Aichholz VALIDATION LEADER Work Phone: noms External Department UnsolicitedStart: 02-13-2024 End: 57-98-6351Qgnzfahxx Result EncounterSlebron Ohara MD Work Phone: noms External Department UnsolicitedStart: 02-13-2024 End: 58-52-9836Zfdrlolda Result EncounterSlebron Ohara MD Work Phone: noms External Department UnsolicitedStart: 02-03-2024 End: 36-88-3110Vwfioesxv Result EncounterGeneric External Data ProviderNOMS External Department UnsolicitedStart: 02-03-2024 End: 03-84-4473Wznotexmj Result EncounterGeneric External Data ProviderNOMS External Department UnsolicitedStart: 01-26-2024 End: 01-88-0008Proamzwfq Result EncounterSlebron Ohara MD Work Phone: noms External Department UnsolicitedStart: 01-26-2024 End: 36-46-0228Miyryeptb Result EncounterSlebron Ohara MD Work Phone: noms External Department UnsolicitedStart: 11-06-2023 Patient encounter procedureGeneric ProviderNOND HealthcareStart: 10-25-2023 End: 77-16-8757Cxlziaexs Result EncounterGeneric External Data ProviderNOMS External Department UnsolicitedStart: 10-25-2023 End: 50-35-4914Hbcofgkkt Result EncounterGeneric External Data ProviderNOMS External Department UnsolicitedStart: 09-07-2023 End: 49-65-7563harmrdflklKhssg Joana Other noSAIC Other Start: 81-39-4166Xrdujfyiw encounterAbdul QadirFPG NephrologyStart: 08-28-2023 End: 67-24-0928monqitrdrrMhutd Joana Other [facility] [place] Other Start: 93-51-8283Lkjwqwhll encounterAbdul QadirFPG NephrologyStart: 08-17-2023 End: 93-01-0738akkhzkmeisBypcf Joana Other noSAIC Other Start: 11-59-0518Ntsvnd outpatient visit 25 minutes Herberth QadirFPG Nephrology ClydeStart: 04-04-2023 End: 33-25-4534gbdkagpagpJYLKOA Dimitry CARLYDFacility:T7Pqiga: 03-24-2023 End: 87-82-2044efkvrwvywqPZ STEPH GRANADOSFacility:Z8Jqhjv: 03-02-2023 End: 20-32-3887jrnwhcudgcOuytc Joana Other [facility] [place] Other Start: 56-71-0312Fxmxzq outpatient visit 25 minutes Herberth QadirFPG Nephrology ClydeStart: 02-25-2023 End: 76-51-3643oaumqvgyboNNXLV QADIRFacility:E2Jjawr: 02-22-2023 End: 94-74-2525wxubmlmaeuJOQNJQ SAMSA .Facility:H5Srlax: 12-15-2022 End: 25-88-6050mvsrzdtqoxGT JACK HALL .Facility:E5Uyhkl: 12-08-2022 End: 63-17-3047Unvhohcwr to same day surgery centerMD Shaikh Ohara Work Phone: [facility] Work Phone: Start: 12-08-2022 End: 70-15-7730enikuwwzzzJJ Shaikh Lev Work Phone: [facility] Work Phone: Start: 11-11-2022 End: 64-78-5244lxzwlnuvwpYK JACK HALL .Facility:F1Rbbat: 11-09-2022 End: 12-56-5654rnpfxnlolnXlor Carloskathy Other [facility] [place] Other Start: 82-03-8947Eilewihcg encounterAzkatherine TrentFPG NephrologyStart: 08-19-2022 End: 88-36-6067qjvmhmcbxkAARWF QADIRFacility:O1Kvvkd: 08-09-2022 End: 12-31-8438vpbpigdwuzQkuou Joana Other noSAIC Other Start: 15-30-6364Trwckl outpatient visit 10 minutes Herberth QadirFPG NephrologyStart: 08-01-2539Iqwjgfdqc encounterAbdul QadirFPG NephrologyStart: 82-81-2391Yvwobjbsa encounterAbdul QadirFPG NephrologyStart: 08-05-2022 End: 47-15-8955jnbeeknlurIUOLC QADIRNort [place] Other Start: 07-08-2022 End: 15-52-0400aypfibzkrvAfmlvwir McCormack Other noSAIC Other Start: 12-64-1277Xlveccpqc encounterGato Domingo [facility]astroenterologyStart: 07-05-2022 End: 14-50-5333gstejtlmhwVDRTYK H FAWWADFacility:P1Vnjwh: 06-08-2022 End: 45-22-5982uzqgafoljwIAUEUH H FAWWADFacility:H0Aqmov: 06-07-2022 End: 25-07-7467wlncytexcvUZSOEI H FAWWADFacility:Q5Xuzgz: 01-24-2022 End: 50-26-8800lcwdusxjheXMMPQSZTV UNKNOWNFacility:UTMCStart: 11-17-2021 End: 31-05-6559wneiifsrwvHqdex Joana Other [place] Other Start: 62-66-3815Bxfdkn outpatient visit 15 minutes Herberth QadirFPG NephrologyStart: 36-26-3408Piliwx outpatient visit 15 minutes Rena GintyFPG Urgent Care ClydeStart: 09-11-2020 End: 79-56-7229Xjhxh abstractingVivearik Buck Work Phone: Hematology/OncologyStart: 09-11-2020 End: 28-68-2896Ltnnozb encounter procedureExternal ProviderSelect Medical Specialty Hospital [facility] Start: 62-11-4571Zfrgwny OnlyExternal ProviderExternal-NonCCFStart: 09-30-2019 End: 19-35-3441Uxomptf encounter procedureSteHighland District Hospital [facility] Main CampusStart: 07-07-2017 End: 52-20-5154Xsvqlvjqw to day surgeryW[facility]-Digestive HealthStart: 52-59-3955Rxzemdoekc and management of inpatient [facility]-3 WestStart: 63-97-6077Iyrojaqfxq and management of inpatientSSouthwest [facility] Procedures DateProcedureProcedure DetailPerforming ClinicianStart: 08-04-2025 Gastrointestinal pathogens panel - Stool by KAYLEE with probe detectionKaylene López NP Work Phone: Start: 20-22-4231Qumdr hip unilateral with pelvis 2-3 viewsGeneric External Data ProviderStart: 98-35-4917IBZFK CULTURE 2Generic External Data ProviderStart: 28-66-6943NIPTH CULTURE 1Generic External Data ProviderStart: 03-03-2025 End: 15-83-7903Hdtlkqvze mammography bi 2-view breast inc cadKaylene López VALIDATION LEADER Work Phone: Start: 84-23-4268MTQWA CULTURE 1Generic External Data ProviderStart: 70-22-6015BUNVSM COVID-19/FLUKaylene Streeterstephen VALIDATION LEADER Work Phone: Start: 12-17-2024 End: 68-86-3526Ghplt hip unilateral with pelvis 2-3 viewsMattcheryl KING Work Phone: Start: 56-66-4784ALTWQSGRCIO OF LESIONEmily Meng Lazo MD Work Phone: Start: 54-73-5232ZHAQ / NAIL BIOPSYRylee Russel KING Work Phone: Start: 84-97-1609Luivpaithe cells LM Ql (Urine sed) Shaikh Lev DRAPER Work Phone: Start: 01-93-0731KVWW STAIN EVALUATIONSlebron Ohara MD Work Phone: Start: 59-73-4905Aeqagtptov [#/volume] in BloodShhyacinth Ohara MD Work Phone: Start: 87-07-9726KDBIH RESPIRATORY CULTURESlebron Ohara MD Work Phone: Start: 88-28-7788XXGTAD 1Slebron Ohara MD Work Phone: Start: 66-72-1633XGEIQS 2Slebron Ohara MD Work Phone: Start: 48-45-4964UITRWI 3Slebron Ohara MD Work Phone: Start: 27-19-0569WNYPZF 4Slebron Ohara MD Work Phone: Start: 58-71-8595WBMXW CULTURE 1Generic External Data ProviderStart: 13-31-4006EPEIV CULTURE 2Generic External Data ProviderStart: 54-95-0478ZDI CBC WITH AUTO DIFFBrittany Reese VALIDATION LEADER Work Phone: Start: 47-61-7317LWKVO CULTURE 2Generic External Data ProviderStart: 18-48-9645RFWNO CULTURE 1Generic External Data ProviderStart: 18-75-8654TI ECHO DOPPLER COMPLETEGeneric External Data ProviderStart: 17-49-5718BY CHEST 2Kiko Ohara MD Work Phone: Start: 55-16-1489KP CHEST 2Kiko Ohara MD Work Phone: Start: 66-03-8756VT THORACIC SPINE 3VGeneric External Data ProviderStart: 57-95-4421BO TOMOSYNTHESIS SCREENING BILisa Rene VALIDATION LEADER Work Phone: Start: 74-84-1281PjszilbktqrQrhzdrs ProviderStart: 40-92-0135CR LUMBAR SPINE WO Joyce Ohara MD Work Phone: Start: 96-00-5615EC CHEST 1 VGeneric External Data ProviderStart: 99-56-5943HB LUMBAR SPINE 2 OR 3Kiko Ohara MD Work Phone: Start: 77-98-7384GD CHEST 2VGeneric External Data ProviderStart: 12-08-2022 End: 79-88-7182FupecfoweeiVR Shaikh Lev Work Phone: Start: 08-81-7213SAUGLTXM IMAGINGExternal Provider Start: 54-77-6230BFBNFUEY LABExternal ProviderStart: 08-91-1403ZGXOCCLO PROCEDUREExternal ProviderStart: 12-50-0638Emkkbjqrsaqblvq of bilateral kidneys Steph RoshonArthroplasty of kneeJENNIFER JOSE ALEJANDRO ColonoscopyJENNIFER JOSE ALEJANDRO Extraction of cataractJENNIFER JOSE ALEJANDRO Insertion of hip prosthesisJENNIFER JOSE ALEJANDRO Ligation of fallopian tubeJENNIFER JOSE ALEJANDRO Plan of Treatment DateCare ActivityDetailAuthorStart: 97-60-1977Llytehdtu for malignant neoplasm of colonNOMS HealthcareStart: 12-15-2026 End: 37-00-7079Jkiyeem encounter procedureNOMS FB ORTHOPAEDICSStart: 07-16-2026 End: 48-53-8215Kllfluv encounter gwarzhhmi63/10/2026 8:45 AM EDT Office Visit [facility] [address] [place] [address] Jessica Lazo MD [address] [place] [address] [facility] DermatologyStart: 04-09-2026 Urine screening for proteinDiabetes: Urine Protein ScreeningKindred Hospital Comment on above:Postponed from 1975 (Other Medical Reasons)Start: 62-49-3412Ijfqfxwdm for malignant neoplasm of breastMammogramNOMS Healthcare Start: 57-00-3776Wsjzian referralTrihealth Mccullough-[facility] Work Phone: Start: 07-17-2025 End: 98-57-8344Qodwrvl encounter ddwdwefqp35/11/2025 9:00 AM EDT Office Visit [facility] [address] [place] [address] Kaylene López NP [address] [place] [id number] WILL TSAI FMStart: 07-16-2025 End: 51-55-9706Ucayecr encounter yifhdwqps58/10/2025 2:45 PM EDT Office Visit [facility] [address] [place] [address] Jessica Lazo MD [address] [place] [address] [place] [address] [facility] DermatologyStart: 07-07-2025 Influenza vaccinationInfluenza Vaccine (#1)NOM HealthcareStart: 06-17-2025 End: 58-94-0931Zbyevvc encounter procedureNOMS [facility] DERMStart: 05-19-2025 End: 98-45-0033Smahwyz encounter procedureNOMS CW FMComment on above:Moderate episode of recurrent major depressive disorder (HCC) (Primary Dx); Morbid (severe) obesity due to excess calories (CMS-HCC)Start: 04-09-2025 End: 56-41-2678Byzubvi encounter wunxxxnka94/04/2025 11:00 AM EDT Office Visit [facility] [address] [place] [address] Kaylene López, RIKKI [address] [place] [phone] Pulmonary emphysema, unspecified emphysema type (CMS/HCC) (Primary Dx); Chronic respiratory failure with hypoxia (CMS/HCC); Morbid (severe) obesity due to excess calories (CMS/HCC)[facility] FMComment on above: Pulmonary emphysema, unspecified emphysema type (CMS/HCC) (Primary Dx); Chronic respiratory failure with hypoxia (CMS/HCC); Morbid (severe) obesity due to excess calories (CMS/HCC)Start: 03-26-2025 End: 74-16-6657Kqosqom encounter cevamamiw75/21/2025 11:30 AM EDT Office Visit [facility] [address] [place] [address] Kaylene López, RIKKI [address] [place] [address] [facility] FMStart: 06-45-7027Qfzcvqsmd for malignant neoplasm of breastMammogramNOND HealthcareStart: 02-17-2025 End: 68-76-4861Exuyyll encounter procedureNOMERCY HOS[facility]ITAL [facility] FMComment on above:Spinal stenosis, lumbar region without neurogenic claudication (Primary Dx); Chronic heart failure with preserved ejection fraction (CMS/HCC); Chronic respiratory failure with hypoxia (CMS/HCC); Severe persistent asthma, uncomplicated (CMS/HCC); Gastroesophageal reflux disease, unspecified whether esophagitis present; Morbid (severe) obesity due to excess calories (CMS/HCC)Start: 02-16-2025 End: 46-24-8342QZ Breast - bilateral ScreeningBilateral screening mammogram Imaging Routine Screening mammogram for breast cancer Expected: 02/16/2025 (Approximate), Expires: 03/18/2026[facility] Work Phone: Comment on above:Expected: 02/16/2025 (Approximate), Expires: 03/18/2026Start: 01-16-2025 End: 68-65-3895Rmdmqnu encounter jpfqbszze67/13/2025 10:00 AM EDT Office Visit [facility] [address] [place] [address] Kaylene López NP [address] [place] [id number] [facility] FMStart: 01-09-2025 End: 64-90-3321Othduwz encounter /06/2025 1:40 PM EST Office Visit [facility] [address] [place] [address] Kaylene López, RIKKI [address] [place] [phone] [facility] FMStart: 01-09-2025 End: 75-52-4390Fedjtnk encounter kwcmuwyed48/06/2025 8:30 AM EST Office Visit [facility] [address] [place] [address] Aida Reese NP [address] [place] [address] [facility] QUIN FMStart: 01-02-2025 End: 38-01-5559Qcuzttb encounter ieznppyfs24/27/2025 2:40 PM EST Office Visit [facility] [address] [place] [address] Kaylene López, VALIDATION LEADER [address] [place] [address] Pulmonary emphysema, unspecified emphysema type (CMS/HCC) (Primary [...] rectosigmoid junction (CMS/HCC); Urge incontinenceStart: 12-17-2024 End: 84-17-4197Xqqorba encounter procedureNOMS FB ORTHOPAEDICSStart: 12-13-2024 End: 68-06-0210Qqryymh encounter procedureNOMS SWS DERMComment on above:Arrived Start: 12-09-2024 End: 36-05-5867Yvspwjr encounter mqlotuyqo21/03/2025 2:30 PM EST Office Visit [facility] [address] [place] [address] Aida Reese, RIKKI [address] [place] [address] [facility] CWM FMStart: 11-20-2024 End: 71-24-5973Pixifqe encounter procedureNOMS FB ORTHOPAEDICSStart: 11-15-2024 End: 67-24-7674Ktuzgus encounter ihcfthuop84/10/2025 10:30 AM EST Office Visit [facility] [address] [place] [address] Jayna Goode PA [address] [place] [address] N[facility] SWS DERMStart: 11-12-2024 End: 49-15-5218YL Chest 2 ViewsXR chest 2 views Imaging Routine Chronic obstructive pulmonary disease with acute lower respiratoryinfection ([facility]/HCC) Expected: 11/12/2024, Expires: 11/12/2025[facility] Work Phone: Comment on above:Expected: 11/12/2024, Expires: 11/12/2025Start: 11-12-2024 End: 89-83-7985Zxnexxz encounter vhnsewsut57/07/2025 10:30 AM EST Office Visit [facility] [address] [place] [address] Aida Reese NP [address] [place] [address] ArrivedNOMS CWM FMComment on above:ArrivedStart: 10-11-2024 End: 39-56-3748Dkzqwoe encounter mxbzhhvyx74/06/2024 8:50 AM EST Office Visit [facility] [address] [place] [address] Jayna Goode PA [address] [place] [address] Neoplasm of uncertain behavior of chest wallNOMS SWS DERMComment on above:Neoplasm of uncertain behavior of chest wallStart: 10-09-2024 End: 51-27-8354Loijfbt encounter wqdyrimda36/04/2024 9:00 AM EST Office Visit [facility] [address] [place] [address] Aida Reese, VALIDATION LEADER [address] [place] [address] [facility] CWM FMStart: 10-07-2024 End: 84-09-6439Nekfozu encounter qrfvdhcal27/02/2024 2:30 PM EST Office Visit [facility] [address] [place] [address] Aida Reese, VALIDATION LEADER [address] [place] [address] ArrivedNOMS CWM FMComment on above:ArrivedStart: 09-12-2024 Phacoemulsification of cataract with intraocular lens implantationOR Cataract PHACO W/IOL/Vitrectomy (Left)[facility] 08-[facility]2024 End: 82-51-6288Nfkfcjikfrdwgw difficile toxin A+B tcdA+tcdB genes [Presence] in Stool by KAYLEE with probe detectionClostridium difficile,EIA Microbiology Routine Diarrhea, unspecified type Expected: 08/19/2024 (Approximate), Expires: 08/19/2025[facility] Work Phone: Comment on above:Expected: 08/19/2024 (Approximate), Expires: 08/19/2025Start: 08-19-2024 End: 03-97-0685Sfxkkyx encounter procedureNOMS CWM FMComment on above:Arrived Start: 07-11-2024 End: 83-38-9780AXQ W Auto Differential panel - BloodCBC and differential Lab Routine Benign essential HTN (CMS/HCC) Chronic heart failure with preserved ejection fraction (CMS/HCC) Moderate mixed hyperlipidemia not requiring statin therapy (CMS/HCC) Morbid obesity with BMI of 40.0-44.9, adult (CMS/HCC) Expected: 07/11/2024 (Approximate), Expires: 07/11/2025[facility] HealthcareComment on above:Expected: 07/11/2024 (Approximate), Expires: 07/11/2025Start: 07-11-2024 End: 32-83-9076Uzdbohrmeufqd metabolic 2000 panel - Serum or PlasmaComprehensive metabolic panel Lab Routine Benign essential HTN (CMS/HCC) Chronic heart failure withpreserved ejection fraction (CMS/HCC) Moderate mixed hyperlipidemia not requiring statin therapy (CMS/HCC) Morbid obesity with BMI of 40.0-44.9, adult ([facility]/HCC) Expected: 07/11/2024 (Approximate), Expires: 07/11/2025[facility] HealthcareComment on above:Expected: 07/11/2024 (Approximate), Expires: 07/11/2025Start: 07-11-2024 End: 77-07-9403Foumb 1996 panel - Serum or PlasmaLipid panel Lab Routine Moderate mixed hyperlipidemia not requiring statin therapy (CMS/HCC) Expected: 07/11/2024 (Approximate), Expires: 07/11/2025[facility] HealthcareComment on above: Expected: 07/11/2024 (Approximate), Expires: 07/11/2025Start: 07-11-2024 End: 89-56-3645Wbgoxwhuvikg/Creatinine panel in random UrineMicroalbumin / creatinine urine ratio Lab Routine Benign essential HTN (CMS/HCC) Expected: 07/11/2024 (Approximate), Expires: 07/11/2025[facility] Healthcare Work Phone: Comment on above:Expected: 07/11/2024 (Approximate), Expires: 07/11/2025Start: 07-11-2024 End: 98-53-2261Fwibvqa encounter procedureNOMS CWM FMComment on above:Benign essential HTN (CMS/HCC) (Primary Dx); Chronic heart failure with preserved ejection fraction (CMS/HCC); Severe persistent asthma without complication (CMS/HCC)Start: 07-07-2024 Influenza vaccinationInfluenza Vaccine (#1)[facility] HospitalStart: 12-08-2022 [facility]: 02-10-9181Ovysrcubz vaccinationINFLUENZA (#1)[facility]: 23-29-7903IKPLELUP VACCINE (1 of 2)SHINGRIX VACCINE (1 of 2)[facility]: 61-05-1186Mzmznfkgkqdk screeningCOLORECTAL CANCER SCREENING,SEE MODIFIERKettering Healthtart: 78-71-2556FWVIUVVY SCREENDIABETES SCREENKettering Healthtart: 68-89-2247ICWBV SCREENLIPID SCREENSelect [facility]ty [facility] Start: 27-13-0837SkqjakkzlzwYUUEPYFBGJqmgtopvg ClinicStart: 16-55-1436DOT TESTINGHPV TESTINGKettering Healthtart: 43-39-4630FYC TESTINGPAP TESTING [facility]: 57-76-5372Xidal microalbumin profileDTAP,TDAP,TD (1 - Tdap)[facility]: 19-20-4893Vtksx screening for proteinDiabetes: Urine Protein ScreeningKindred HospitalStart: 06-49-6428TFTHILTXP C SCREENINGHEPATITIS C SCREENINGKettering Healthtart: 34-41-3356AGG SCREENINGHIV SCREENINGKettering Healthtart: 29-10-5469Xbdyypnm screeningDiabetes: Retinopathy ScreeningAL[facility]IEW [facility]OS[facility]ITAL HealthcareStart: 47-35-6855Yqobwtpyul A1c measurementDiabetes: Hemoglobin A1C [facility] HealthcareStart: 99-11-9124Wdxpcsipe for malignant neoplasm of colonNOMS HealthcareBLOOD CULTURE [...] CULTURE 2 Lab Routine 06/28/2024 8:21 PM EDTNOND HealthcareBLOOD CULTURE 2BLOOD CULTURE 2 Lab Routine 03/10/2025 10:32 PM EDT [facility] HealthcareComprehensive metabolic 2000 panel - Serum or PlasmaKettering Health Washington TownshipDermatopathology examDermatopathology exam Pathology and Cytology Timed Neoplasm of unspecified behavior of bone, soft tissue, and skin Release Upon Ordering for 1 Occurrences starting 10/11/2024[facility] Work Phone: comment on above:Release Upon Ordering for 1 Occurrences starting 10/11/2024LOWER RESPIRATORY CULTURELOWER RESPIRATORY CULTURE Lab Routine 08/12/2024 9:50 [facility] Work Phone: Patient EducationColon Polypectomy Hemorrhoids (DC) Diverticulosis (DC)[facility] Work Phone: Patient referralTrihealth [facility] Work Phone: Urine [facility] Immunizations Immunization DateImmunizationNotesCare XdjhnrmeNfqtwxed90-92-6919qsmgllvfu, high dose seasonal, preservative-freeLisa Rene VALIDATION LEADER Work Phone: Kindred HospitalPfzfwubhgj06-26-3997vgnxiebmu virus vaccine, unspecified formulationAida Reese VALIDATION LEADER Work Phone: [facility]10-21-2023Influenza, High-dose Seasonal, Quadrivalent, Preservative Free Generic [facility] HospitalFhahsdmpjs57-75-3161vweioownl virus vaccine, unspecified formulationGeneric ProviderExec[facility]10-13-2023RSV, recombinant, protein subunit RSVpreF, adjuvant reconstitu, 120mcg/0.5mL, PF (Arexvy)Generic [facility]10-04-2023 Pneumococcal Conjugate PCV 20Generic [facility] HospitalGuremekpat58-40-3636yprfjj vaccine recombinantGeneric [facility] HospitalAwockebzwy83-39-3388hpefke vaccine recombinantGeneric [facility] HospitalWpfhlvxvuq88-63-3383ekqldswps virus vaccine, unspecified formulationJENNIFER JOSE ALEJANDRO [facility]09-29-2022Influenza, High-dose Seasonal, Quadrivalent, Preservative Free Generic [facility] HospitalDdsgimudlm73-78-8712APHR-YpN-4 (COVID-19) mRNAMUL.ORD!l31964UPCFEPQU JOSE ALEJANDRO [facility]05-20-2022SARS-CoV-2 (COVID-19) mRNA-1273 vaccineJENNIFER JOSE ALEJANDRO [facility]11-01-2021SARS-CoV-2 (COVID-19) mRNA-1273 vaccineJENNIFER JOSE ALEJANDRO [facility]10-01-2021influenza virus vaccine, unspecified formulationJENNIFER JOSE ALEJANDRO [facility]10-01-2021Influenza, High-dose Seasonal, Quadrivalent, Preservative Free Generic [facility] HospitalErgagfohid94-97-5238DYYF-JuC-7 (COVID-19) mRNA-1273 vaccine MAG JOSE ALEJANDRO [facility] on above:Result Comment: 2025-03-24: RTX6323-54-4723QEAQ-VnQ-6 (COVID-19) mRNA-1273 vaccineJENNIFER JOSE ALEJANDRO [facility] on above:Result Comment: 2025-03-24: CTX1339-42-7933eqvieylgz virus vaccine, unspecified formulationJENNIFER JOSE ALEJANDRO [facility]10-02-2020influenza, injectable, quadrivalent, preservative freeGeneric [facility] HospitalAuwsqvunrd37-79-2550wcrrsghft virus vaccine, unspecified formulationJENNIFER JOSE ALEJANDRO [facility]10-04-2019influenza, injectable, quadrivalent, preservative freeGeneric [facility] HospitalZwrkerhnek12-46-7976uymeazyagbmj polysaccharide vaccine, 23 valent Generic [facility] HospitalIiaufgvacm39-53-9843cdxcnibtp virus vaccine, unspecified formulationJENNIFER JOSE ALEJANDRO [facility]10-03-2018influenza, injectable, quadrivalent, preservative freeGeneric [facility] HospitalWevjmmyvga16-63-8775Fizd-Diwmxw 40 mgAmber Ginty Other IPM [place] Other 03-828836-13-9700Saga-Vxsfzh 40 mgAmber Ginty Other IPM [place] Other 10-354008-97-9554ribikfzbt virus vaccine, unspecified formulationJENNIFER JOSE ALEJANDRO [facility]10-05-2017influenza, injectable, quadrivalent, preservative freeGeneric [facility] HospitalTmuruqrkcn36-22-0364xmfpicjhc virus vaccine, split virus (incl. purified surface antigen)Generic [facility] HospitalUxvsfnoase50-24-0991yjgusueey virus vaccine, unspecified formulationSteven Roshon Work Phone: [facility]10-04-2017influenza, seasonal, injectable, preservative freeAmber Ginty Other IPM [place] Other 10-794817-63-7017tkfcb rflxpvprg-Y4Q5-18, preservative-free, injectableGeneric [facility] Payers DatePayer CategoryPayerPolicy [id number] 2025Medicaid [id number] 2024 Medicare (Managed Care)[id number] Private Health [id number] [id number] 2020Medicaid [id number] 2020MedicaidMEDICAID [facility] MEDICAID [id number] 2019-Present [id number] 2017Medicare [id number] 2016MedicareMEDICARE MEDICARE A AND B [id number] 2016-Present [place], [place] [id number] 1.2.840.453706.1.13.159.2.7.3.27958[id number] [id number] 2.16.840.1.929527.3.57[id number] 2.16.840.1.957114.3.57[id number] 2.16.840.1.090485.3.579.2.922 [id number] 2.16840.1.652358.3.579.2.59600-85-4512Jbnmubt7251838 2.16840.1.038051.3.579.2.10034-36-8385Skzwlyz0666854 2.16840.1.858657.3.579.2.44762-35-9150Bxapdhu7243517 2.16840.1.313311.3.579.2.45276-50-1820Njwtwqt3778104 2.16840.1.474774.3.57[id number] 2.16840.1.918126.3.579.2.26436-34-2254Kntucud6808334 2.16840.1.939592.3.579.2.30670-86-8475Lvlxbxz1729626 2.16840.1.510277.3.579.2.94581-15-8230Ujkyict6498006 2.16840.1.442784.3.579.2.07607-15-2183Jdgoygv25822084 2.16840.1.042176.3.579.2.76820-10-3665Bhtqrzm88235962 2.16840.1.647066.3.579.2.73713-21-3771Bunytkt21512484 2.16840.1.879664.3.579.2.848[id number] 2.16840.1.366736.3.579.2.68946-59-1486Dvvxtze214671132 2.16840.1.039800.3.579.[id number] 2.0.1.694073.3.579.2.24046-12-0031Vmxfmvt70077385 2.0.1.483998.3.579.2.273062-40-5751Uqdblze91688614 2.0.1.310805.3.579.2.559456-16-2137Jzbfxny72865449 2.0.1.928150.3.579.2.783018-89-8437Bybszwi4587732 2.0.1.251628.3.579.2.324398-49-6427Toxusio4792416 2.0.1.462534.3.579.2.644048-00-2230Iagtgsk7605608 2.0.1.348882.3.579.2.052720-32-3142Kdvggzl4629675 2..1.074401.3.579.2.189892-05-7877Mthiufd5832887 2..1.790323.3.579.2.973819-17-3264Pidxfzk7110250 2..1.028995.3.579.2.916412-09-2518Yflcuzc9864345 2.0.1.640083.3.579.2.521767-86-7602Tfvtiek0743311 2.840.1.055556.3.579.2.161651-87-8401Yalfiug3530972 2.840.1.739870.3.579.2.367242-22-7189Fyzfyds7926300 2.0.1.893758.3.579.2.675526-78-6973Xuufzke6468123 2.16.840.1.436893.3.579.2.228658-94-9167Fntwhtk8512532 2.16.840.1.571934.3.579.2.705700-90-8729Xeiccak5561569 2.16.840.1.911950.3.579.2.906643-77-0579Woradwp97516246 2.16.840.1.962880.3.579.2.13012-88-9205Ttnddol80455016 2..0.1.501607.3.579.2.08028-35-4117Bpeojdu88431271 2..0.1.324573.3.579.2.95930-93-3552Rxvftnt73291844 2.16.840.1.42[id number] 17z3m91t-xqc3-788f-50z1-zy4a1472b7m9Eeed-bpqJiox Pay [id number]-z8v7-233s-6423-[id number] Social History DateTypeDetailFacilityTobacco smoking status NHISUnknown if ever smokedAdams County Hospital CtrStart: 56-59-5303Ufz Assigned At BirthFeCleveland Clinic South Pointe Hospitaltart: 09-11-2020 End: 68-91-7727Annuclg smoking status NHISNever smokerFostoria City Hospitaltart: 09-11-2020 End: 15-46-9559Vxsnqae use and exposureNever usedKettering Healthtart: 09-11-2020 End: 54-04-4214Agvjxyc intakeLifetime non-drinker (finding)[facility] Start: 26-39-2462Cgknwoe SDOH Alcohol Drpqrwgcv8Kkonutyoo ClinicStart: 71-16-7758Iqg Assigned At BirthNot on fileCleuniversity hospitals lake [facility] medical center ClinicStart: 10-26-2023 End: 66-88-0616Nbt Assigned At BirthNOND HealthcareStart: 10-26-2023 End: 09-83-4830Akqqyav of Social functionNOMS HealthcareWithin the last year, have you been afraid of your partner or ex-partner?NoNOMS HealthcareAre you now , , , , never or living with a partner? DivorcedNOMS HealthcareHow often to you have a drink containing alcohol?Never [facility] HealthcareStart: 12-68-4523Wed many standard drinks containing alcohol do you [...] money to buy more.Never trueNOMS Healthcare Start: 14-87-1678Adxjves Commentcaffeine: more than 4 cups per dayNOND HealthcareStart: 02-17-2010 End: 76-21-8502RcpFnbgiz ([facility] TownshipHow hard is it for you to pay for the very basics like food, housing, medical care, and heatingSomewhat hardNOMS HealthcareDo you feel stress - tense, restless, nervous, or anxious, or unable to sleep at night because yourmind is troubled all the time - these days [OSQ]Only a littleNOMS HealthcareSexual Orientation [facility] NEGATED: Highlighted rowStart: NINFHistory of tobacco usePassive smokerNOMS Healthcare Goals DatePatient GoalDesired Activity/StatePersonal health goal Functional Status NzqcUcuvsoywfbQxbqwtDyetqvww77-03-0245Hjcgucknzt StatusN/AExec[facility] of [facility]01-20-2025Total score [AUDIT-C]0 11/25/2024 4:37 PM EST Mychart, GenericKindred HospitalGprynpxexq31-79-8394Gvr often do you have a drink containing alcohol?Never 11/25/2024 4:37 PM EST Mychart, Generic NeverKindred HospitalFkhddktkbf92-78-3975Uoefdaygpw statusPatient does not drink 11/25/2024 4:37 PM EST Mychart, Generic Patient does not drinkKindred HospitalAyhxhbdzch37-58-1984Chu often do you have 6 or more drinks on 1 occasion?Never 11/25/2024 4:37 PM EST Mychart, Generic NeverKindred HospitalXnnczexsgq68-35-0935Oshzcdafix StatusN/AExecutive Urology [facility]08-07-2024Patient Health Questionnaire 2 item (PHQ-2) [Reported]Kindred HospitalBsrpbacfkq71-08-1343Rwzjuur Health Questionnaire 2 item (PHQ-2) [Reported]Kindred HospitalRdxtmfpkya16-04-9911Gvhrkep Health Questionnaire 2 item (PHQ-2) [Reported][facility]red HospitalDcmyifllgt96-23-9707Glpgwbg Health Questionnaire 2 item (PHQ-2) [Reported]Kindred HospitalYaeblmhbjs20-14-3426Vugofcv Health Questionnaire 2 item (PHQ-2) [Reported][facility] Clinical Notes 08-30-2021 to 07-22-2025 Note Date & WxsuRevjXlcevyjh44-22-9508 Hospital Discharge instructions Patient Education 07/22/2025 09:50:03 [...] your health care provider. General instructions Take sbjf-zpu-qwhljys and prescription medicines only as told by [...] provider. Document Revised: 07/12/2021 Document Reviewed: 07/12/2021 [employer] Patient Education 2023 [employer]. 07/22/2025 09:50:03 Urinary Incontinence Urinary Incontinence Urinary [...] (electrical nerve stimulation). ?For women, using a medical claims analyst to prevent urine leaks. This is a [...] right after experiencing incontinence. General instructions Take buel-hjd-cquvvtg and prescription medicines only as told by [...] important. Where to find more information National [place] of Diabetes and Digestive and Kidney Diseases: www.niddk.nih.gov [employer] [employer]: www.urologyhealth.org Contact a health care [...] provider. Document Revised: 05/28/2021 Document Reviewed: 05/28/2021 [employer] Patient Education 2023 [employer] Follow Up Care 07/18/2025 09:18:17 With:Amalia Stephens PA-C, YANY Address: When:Within 2 Month(s) Comments:w/ PVR [facility] 09-16-2025 NotePatient Education Obstetrics and Gynecology [...] health care provider. General instructions ??? Take hlcv-fam-oesxtyx and prescription medicines only as told by [...] you drink, and whe (more content not included)...[facility]09-11-2025 Evaluation note* Diagnosis Onset Date Resolution [...] 10:02amStage 3 chronic kidney diseaseacuteSeptember 2024 10:02am [facility] Work Phone: 1(744) 205-264909-11-2025 Evaluation note* Diagnosis Onset Date Resolution Status [...] obesity due to excess caloriesacuteOctober 2024 8:39am [facility] Work Phone: 1(358) 975-725609-10-2025 History of Present illness Narrative* Jessica Lazo [...] SCC (SQUAMOUS CELL CARCINOMA) OF SKIN Chest [facility] No evidence of recurrence at SCC [...] 1 year, skin check documented in this encounterKindred HospitalEwavflnjxy66-95-0694 Telephone encounter Note* Telephone Encounter - Kaylene [...] if no help let me know [place] Kindred HospitalWpjrmpsfed69-02-2971 Miscellaneous Notes* Telephone Encounter - Kaylene López [...] let me know [place] documented in this encounterKindred HospitalSgrsnltcyx98-31-4516 History of Present illness Narrative* KATE MTZ [...] (HCC) Chronic kidney disease, stage III (moderate) ([facility]) Chronic obstructive pulmonary disease (COPD) [...] Morbid obesity with BMI of 40.0-44.9, adult ([facility]) Osteoporosis screening Pneumonia Positive depression [...] 03/[address] LINN SPINAL FUSION 05/07/2003 [facility] TOTAL HIP ARTHROPLASTY Left 08/30/2019 REMOVED TOTAL [...] Morbid (severe) obesity due to excess calories ([facility]-HCC) Discussed with patient their BMI (actual, verses [...] does not take any documented in this encounterKindred HospitalWrvrhgzbkr62-81-6838 History of Present illness Narrative* Kaylene López NP - 04/09/2025 12:37 PM EDTAssociated Problem(s): Depression ([facility]/HCC) Current med paxil Will add on medication * KATE MTZ - 04/09/2025 11:00 AM EDT 3L * Kaylene López NP - 04/09/2025 11:00 AM EDT Images from the original note were not included. Diana Champion is a 69 y.o. female presents with chief complaint of Hospital Follow-up HPI: Here for hospital follow up: Discharged to [facility] on 03/25/25. Now at home: breathing has [...] 03/[address] LINN SPINAL FUSION 05/07/2003 [facility] TOTAL HIP ARTHROPLASTY Left 08/30/2019 REMOVED TOTAL [...] This Visit Chronic obstructive pulmonary disease (COPD) ([facility]) Current meds: albuterol nebs and inhaler, trelegy, oxygen Follows with Pulmonology 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 General instructions Take rcmj-yjw-vwjrqto and prescription medicines only as told by [...] provider. Document Revised: 07/12/2021 Document Reviewed: 07/12/2021 [employer] Patient Education 2023 [employer]. Follow Up Care 10/15/2024 15:05:18 With:MAG BLOUNT PA-C, URL Address: [address] [place] [address]. [place] [address] When:Within 3 Month(s) [facility] 05-19-2025 NotePatient Education Obstetrics and Gynecology [...] health care provider. General instructions ??? Take hpre-opi-xpjbueq and prescription medicines only as told by [...] you drink, and whe (more content not included)...[facility]04-14-2025 History of Present illness Narrative* Kaylene López, VALIDATION LEADER - 02/17/2025 9:03 AM EDTAssociated Problem(s): Edema [...] ferrous sulfate 325 mg, Daily with breakfast Qkggrkpovlf-Bwvozqshh-Sgxdur (Trelegy Ellipta) 200-62.5-25 MCG/ACT aerosol powder 1 [...] Morbid obesity with BMI of 40.0-44.9, adult ([facility]/HCC) Osteoporosis screening Pneumonia Positive depression screening Post-menopausal Restless leg syndrome Right hip pain Urge incontinence Vitamin D deficiency Past Surgical History: Procedure Laterality Date BACK SURGERY 2004 CARDIAC CATHETERIZATION Left 06/14/2014 Left Heart-Ventricular Puncture CARDIAC CATHETERIZATION Left 08/13/2018 Left Heart-Ventricular Puncture FOOT SURGERY 09/2015 JOINT REPLACEMENT Left 08/01/2016 Hip replacement REVISION TOTAL HIP ARTHROPLASTY Left 03/[address] LINN SPINAL FUSION 05/07/2003 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 She's been in and out of [facility] for pneumonia recently. Had echo [...] breath since then. 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 Her chest pain is noncardiac. She [...] history of Allergic rhinitis, Anemia, Asthma, Cancer ([facility]), Chronic heart failure with preserved ejection fraction ([facility]), Chronic hypoxic respiratory failure ([facility]), Chronic kidney disease, COPD (chronic obstructive pulmonary disease) ([facility]), Coronary artery disease, Depression, Diabetes mellitus ([facility]), Dyspnea, GERD (gastroesophageal reflux disease), Hyperlipidemia, Lumbar spondylosis, Other secondary pulmonary hypertension ([facility]), Pneumonia, Primary osteoarthritis of right [...] mouth every other day., Disp: , Rfl: hldnjyqaeyd-lfzsyjpeh-qkeifeji 100-62.5-25 mcg blister with device, , Disp: [...] mg tablet, YOKO (more content not included)... [facility] History of Present illness Narrative* Kaylene López [...] new atb and sputum result. She will order picker/assembler new atb after appt. * Kaylene López [...] chills, +weakness, has home health Nurse from [facility] coming today, not sure if any therapy [...] ferrous sulfate 325 mg, Daily with breakfast Zjzwnhuuzrz-Trypvbhjw-Oktmzt (Trelegy Ellipta) 200-62.5-25 MCG/ACT aerosol powder 1 [...] History: Diagnosis Date Alcohol screening Arthritis Asthma ([facility]/HCC) At moderate risk for fall Benign essential HTN ([facility]) Breast cancer screening by mammogram Chronic back pain greater than 3 months duration Chronic heart failure with preserved ejection fraction ([facility]) Chronic kidney disease, stage III (moderate) (HCC) ([facility]) Chronic obstructive pulmonary disease (COPD) ([facility]/HCC) Colon cancer ([facility]/HCC) Colorectal cancer ([facility]) Contact w and exposure to oth viral communicable diseases COPD exacerbation ([facility]) Coronary artery disease ([facility]/HCC) Depression ([facility]) Emphysema, unspecified ([facility]) Encounter for gynecological examination (general) (routine) without abnormal findings Essential (primary) hypertension ([facility]) Exposure to STD Gastroesophageal reflux disease General deterioration of health HPV in female Hyperlipidemia ([facility]/HCC) Hyperuricemia Intertrigo Iron deficiency anemia Low back pain Morbid obesity with BMI of 40.0-44.9, adult ([facility]) Osteoporosis screening Pneumonia Positive depression [...] 03/[address] LINN SPINAL FUSION 05/07/2003 [facility] TOTAL HIP ARTHROPLASTY Left 08/30/2019 REMOVED TOTAL [...] daily for 7 day Recent hospitalization to [facility]: back to back, 01/02/25 and [...] significantly elevated right sided pressure at 65 [facility] Cardiology * Kaylene López NP - [...] daily for 7 day Recent hospitalization to [facility]: back to back, 01/02/25 and 01/08/25 I have reviewed her hospital notes, labs, discharge info as well * Kaylene López NP - 01/16/2025 6:28 AM EDTAssociated Problem(s): Chronic respiratory failure with hypoxia (CMS/HCC) Is oxygen dependant, non invasive vent at night samsa documented in this [facility]03-13-2025 Instructions* Patient Instructions* Kaylene López [...] OT for home documented in this [facility]03-12-2025 History of Present illness Narrative* Kaylene López NP - 01/15/2025 6:58 PM EDTAssociated Problem(s): Pneumonia due to infectious organism Respiratory panel: culture pseudomonas Was sent home on doxy, will have her stop this, and start levoquin 750mg daily for 7 day documented in this encounterKindred [id number] History of Present illness Narrative* Kaylene López NP - 01/02/2025 3:28 PM ESTAssociated Problem(s): Flu-like symptoms Neg, still strong clinical suspicion for flu, d/t severe pulmonary conditions and weakness will send her to [facility] ER for evaluation DD: pneumonia, covid, flu, RSV * Kaylene López NP - 01/02/2025 3:26 PM ESTAssociated Problem(s): Chronic respiratory failure with hypoxia (CMS/HCC) Oxygen level 88-90% w walking, normal 94-95% w oxygen * Kaylene López NP - 01/02/2025 3:25 PM ESTAssociated Problem(s): Chronic obstructive pulmonary disease (COPD) (CMS/HCC) 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 ethylene plant operator Flu Symptoms This is a new problem. [...] ferrous sulfate 325 mg, Daily with breakfast Uqhzqktruyw-Spgnczgfr-Jvjirh (Trelegy Ellipta) 200-62.5-25 MCG/ACT aerosol powder 1 [...] Morbid obesity with BMI of 40.0-44.9, adult ([facility]) Osteoporosis screening Pneumonia Positive depression [...] 03/[address] LINN SPINAL FUSION 05/07/2003 [facility] TOTAL HIP ARTHROPLASTY Left 08/30/2019 REMOVED TOTAL [...] This Visit Chronic obstructive pulmonary disease (COPD) ([facility]/HCC) 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 We have also discussed lifestyle modifications: attempts to perform physical activity as chronic conditions allow, also to monitor dietary intake: increasing protein/fruits/veggies and lowering carb intake (unless contraindicated). Limit sodas, juices, and sugary drinks. Essential hypertension ([facility]) DASH diet Limit caffeine Contact office if chest pain, pressure, dizziness, shortness of breath, swelling legs Recommend slow position changes Current meds: does not take any Chronic respiratory failure with hypoxia ([facility]) Oxygen level 88-90% w walking, normal 94-95% w oxygen Body mass index (BMI) 40.0-44.9, adult ([facility]) Flu-like symptoms - Primary Neg, still strong clinical suspicion for flu, d/t severe pulmonary conditions and weakness will send her to [facility] ER for evaluation DD: pneumonia, [...] Problem(s): Chronic kidney disease, stage 3a (HCC) ([facility]/HCC) Monitor labs * Kaylene López NP - [...] 01/02/2025 7:23 AM ESTAssociated Problem(s): Essential hypertension ([facility]/HCC) DASH diet Limit caffeine Contact office if chest pain, pressure, dizziness, shortness of breath, swelling legs Recommend slow position changes Current meds: does not take any documented in this encounterKindred [id number] History of Present illness Narrative* Jessica Lazo [...] Next Visit: 6 months documented in this encounterKindred HospitalQrsfgfqqvy06-39-2229 History of Present illness Narrative* CHRISTINE Alexander [...] ferrous sulfate 325 mg, Daily with breakfast Doajwtsgixr-Hgucjztjl-Ufoovb (Trelegy Ellipta) 200-62.5-25 MCG/ACT aerosol powder 1 [...] be necessary. Pt will consult with her Inspector Screen Printing to see if she would be a [...] for requiring urgent evaluation. documented in this encounterKindred [id number] History of Present illness Narrative* Jessica Lazo [...] skin of chest Chest - Medial (Center) Everson macule at the biopsy site. Destr of lesion Complexity: simple Destruction method: cryotherapy Informed consent: discussed and consent obtained Informed consent comment: The risks of the procedure were discussed, including, but not limited to risks of scarring, darker or roll weigher pigmentary changes, recurrence, infection, and incomplete removal [...] or tenderness. Additional details: Previous accession number: [id number] Discussed treatment options excision vs cryotherapy in detail. Patient opted for cryotherapy. Cryotherapy completed today, see procedure note. Return to clinic prior to next scheduled visit for any signs or symptoms of recurrence, reviewed the signs and symptoms. Recommended 6 month skin exam. Next Visit: as scheduled documented in this encounterKindred [id number] History of Present illness Narrative* Aida Reese NP - 11/28/2024 1:37 PM ESTAssociated Problem(s): Chronic obstructive pulmonary disease (COPD) ([facility]) Was admitted to [facility] for COPD with acute exacerbation. [...] for Hospital Follow-up. HPI Was admitted to [facility] for COPD with acute exacerbation. [...] This Visit Chronic obstructive pulmonary disease (COPD) ([facility]) - Primary Was admitted to [facility] for COPD with acute exacerbation. [...] hospital follow up. documented in this [facility]01-23-2025 Instructions* Patient Instructions* Aida Reese NP - 11/28/2024 1:[address] Mcclain's office to see if he wants to see you for hospital follow up sooner than January. Take and finish all medications as directed. documented in this [facility]01-07-2025 History of Present illness Narrative* Aida Reese NP - 11/12/2024 11:08 AM ESTAssociated Problem(s): Chronic obstructive pulmonary disease (COPD) ([facility]) 5 days ago woke up, [...] This Visit Chronic obstructive pulmonary disease (COPD) ([facility]) - Primary 5 days ago [...] 1 g tablet documented in this [facility]01-07-2025 Instructions* Patient Instructions* Aida Reese [...] NEAREST EMERGENCY DEPARTMENT. documented in this [facility]12-12-2024 Note Attestation signed by Emelia [...] Age: 69 y.o. : 1955 Account No.: [id number] Referring physician: Dr. Bo Mcclain Chief complaint: Recurreny pneumonia HPI Diana Champion is a 69 y.o. female with PMHx of chronic hypoxic respiratory failure on 3L home O2, tracheobronchomalacia who is presenting to clinic for follow up. Patient was previously referred by Dr. Bo Mcclain of [facility] in June of 2024. Patient had been having frequent pneumonias requiring hospitalization thought to be secondary to dynamic airway collapse. Therefore we performed bronchoscopy with airway inspection on 07/02/2024 which showed severe tracheobronchomalacia with mucous plugging. She subsequently followed up post procedure and different treatment options were discussed. She was hesitant to undergo APC or tracheal bronchoplasty at [facility] and instead opted to trial CPAP to [...] Diagnosis Date Allergic rhinitis Anemia Asthma Cancer ([facility]) Chronic heart failure with preserved ejection fraction ([facility]) Chronic hypoxic respiratory failure ([facility]) Chronic kidney disease COPD (chronic obstructive pulmonary disease) ([facility]) Coronary artery disease Depression Diabetes mellitus ([facility]) Dyspnea GERD (gastroesophageal reflux disease) Hyperlipidemia Lumbar spondylosis Other secondary pulmonary hypertension ([facility]) Pneumonia Primary osteoarthritis of right [...] 325 mg by bessie (more content not included)...[facility]12-10-2024 Hospital Discharge instructions Patient Education 10/15/2024 16:56:39 [...] your health care provider. General instructions Take mbau-fds-rzfjoxr and prescription medicines only as told by [...] provider. Document Revised: 07/12/2021 Document Reviewed: 07/12/2021 [employer] Patient Education 2023 [employer]. Follow Up Care 10/11/2024 14:37:09 With:JOSE ALEJANDRO MICHAUD, MAG Hester, URL Address: [address] [place] [phone] When:Within 3 Month(s) [facility] 12-10-2024 NoteUrology Office/Clinic Note Chief Complaint [...] kg WT: 235.894 lb BMI: 40.27 Assessment/Plan [facility] [place] CKD - Joana COPD/Pulm [...] could include cysto, urodynamics, Botox, SNM. Orders: 24242 Measure Post Void residual urine and/or bladder capacity by US- non-imaging E&M of New Patient Moderate 45-59 Min 84418 Urine Culture Urnls Dip Stick Auto w/o Microscopy POC 91342 Follow-up With When Contact Information MAG BLOUNT PA-C, URL In 3 months [address] [place] [address] Additional Instructions: Patient Education Overactive [...] 1 drop(s) Allergies f (more content not included)...[facility]: Result Comment: Electronically Signed By: MAG BLOUNT PA-C\.br\Date and Time Signed: 10/15/2416:57 [id number] NotePatient Education Obstetrics and Gynecology Overactive Bladder, [...] health care provider. General instructions ??? Take xtfg-efn-aaotqjf and prescription medicines only as told by [...] you drink, and whe (more content not included)...[facility]12-[facility] History of Present illness Narrative* CHRISTINE [...] Visit: pending biopsy results documented in this encounterKindred [id number] History of Present illness Narrative* Aida Reese [...] Pulmonology- Dr. Mcclain and Dr. Yoo Cardiology- [facility] Ortho- Dr. Corrales Nephrology- Dr. Sky [...] Ambulatory referral to Dermatology documented in this encounterKindred HospitalUcoiswxpjt49-78-2853 Telephone encounter Note* Telephone Encounter - Rukhsana Rutherford MA - 09/03/2024 11:22 AM EDT Pt requesting a refill on her Omeprazole BECK:08/19/2024 NOV:10/09/2024 Kindred HospitalClpdhuxmvk53-30-0933 Miscellaneous Notes* Telephone Encounter - Rukhsana Rutherford MA - 09/03/2024 11:22 AM EDT Pt requesting a refill on her Omeprazole BECK:08/19/2024 NOV:10/09/2024 documented in this encounterKindred [id number] Telephone encounter Note* Telephone Encounter - Mag [...] time getting it in last time. MAYANK Kindred [id number] Miscellaneous Notes* Telephone Encounter - Mag Byers [...] spelled that right) nurse phone number is [phone] or you can contact patient she said. JN documented in this encounterKindred HospitalTymfttznqi25-45-9013 History of Present illness Narrative* Bernadine Garduno - 08/19/2024 11:30 AM EDT Last Monday left hospital and has been having diarrhea about 6 times a day. * Aida Reese NP - 08/19/2024 11:30 AM EDT Images from the original note were not included. Subjective Patient ID: Diana Champion is a 69 y.o. female who presents for No chief complaint on file.. [facility] Hospital follow up; Was seen at [facility] 08/08/24-08/12/24 ARF; Was discharged home [...] This Visit Moderate persistent asthma with exacerbation ([facility]) - Primary Other Visit Diagnoses Diarrhea, unspecified type Relevant Orders Clostridium difficile,EIA documented in this encounterKindred [id number] Instructions* Patient Instructions* Aida Reese NP - 08/19/2024 11:30 AM EDT Continue Augmentin. Start taking OTC probiotics Have stool culture completed to test for C.Difficile. If negative continue ATB regimen as directed. If positive we will treat accordingly. Keep all follow up appointments as scheduled. documented in this encounterKindred [id number] Note Gram Stain Evaluation This specimen is of good quality and is acceptable for routine Kindred HospitalPqokvanzrq81-70-5494 NoteGRAM STAIN EVALUATIONbacterial culture.TBTidelands Waccamaw Community HospitalJqaagplfgu75-14-9750 Telephone encounter Note* Telephone Encounter - Mag [...] spelled that right) nurse phone number is [phone] or you can contact patient she said. JN Kindred HospitalFltayzhbij01-73-1876 Telephone encounter Note* Telephone Encounter - Tony Butts MA - 07/16/2024 4:08 PM EDT Pt informed of lab results and provider recommendations. Pt does do chair exercises four times a week and walks (with walker) but due to her health conditions she is limited. Pt is in a wheelchair with very limited ambulation -SCR Kindred HospitalWdmbmgjdbl75-18-1077 Miscellaneous Notes* Telephone Encounter - Tony Butts [...] To: Aida Reese NP documented in this encounterKindred HospitalUmajhbdxtd49-51-3881 Telephone encounter Note* Telephone Encounter - Tony [...] 9:29 AM EDT To: Aida Reese NP [facility] [id number] Note Attestation signed by Emelia Yoo MD [...] Age: 68 y.o. : 1955 Account No.: [id number] [facility] Chief Complaint: follow up after recent [...] was initiated by the patient and conducted dlt-cnhh-wd-face with use of audio-only real time telephone communication between patient and provider for a virtual visit. Verbal consent to provide and bill this service was obtained on: 07/11/24 No signature was obtained due to the COVID-19 pandemic. Past Medical History: Diagnosis Date Allergic rhinitis Anemia Asthma Cancer ([facility]) Chronic heart failure with preserved ejection fraction ([facility]) Chronic hypoxic respiratory failure ([facility]) Chronic kidney disease COPD (chronic obstructive pulmonary disease) ([facility]) Coronary artery disease Depression Diabetes mellitus ([facility]) Dyspnea GERD (gastroesophageal reflux disease) Hyperlipidemia Lumbar spondylosis Other secondary pulmonary hypertension ([facility]) Pneumonia Primary osteoarthritis of right [...] by mouth every other day. Historical Provider, yfwondpherv-ucefmoioe-jnarwhup 100-62.5-25 mcg blister with device Historical Provider, [...] multivitamin (Theragran-M) 9 mg (more content not included)...[facility]09-05-2024 History of Present illness Narrative* Aida Reese NP - 07/11/2024 8:57 AM EDTAssociated Problem(s): Morbid obesity with BMI of 40.0-44.9, adult ([facility]) Discussed with patient their BMI (actual, verses recommended). We have also discussed lifestyle modifications: attempts to perform physical activity as chronic conditions allow, also to monitor dietary intake: increasing protein/fruits/veggies and lowering carb intake (unless contraindicated). Limit sodas, juices, and sugary drinks. * Aida Reese NP - 07/11/2024 8:56 AM EDTAssociated Problem(s): Severe persistent asthma without complication ([facility]) Currently taking Trelegy Singulair Albuterol [...] with preserved ejection fraction (CMS/HCC) Follows Cardiology- [facility] Was seen in May 2024 Lasix [...] Pulmonology- Dr. Mcclain and Dr. Yoo Cardiology- [facility] [place] Ortho- Dr. Corrales Nephrology- Dr. Sky Was seeing Urology 5 years ago for urinary retention. Now is having mixed incontinence. Does not want referral today, would like to revisit at next visit. Was seen on 06/12/24 for Hospital follow up. Is following closely with Pulmonology; Tracheobronchomalacia HTN: Currently not taking any medications. Bp is well controlled. Averages 120's-130's. HFpEF: Follows Cardiology- [facility] Was seen in May 2024 Lasix [...] with preserved ejection fraction (CMS/HCC) Follows Cardiology- [facility] Was seen in May 2024 Lasix 20mg Relevant Orders Comprehensive metabolic panel CBC and differential Hyperlipidemia ([facility]/HCC) Currently not on any medications: Lifestyle and dietary modifications. Recheck lipid pane today. Relevant Orders Lipid panel Comprehensive metabolic panel CBC and differential Morbid obesity with BMI of 40.0-44.9, adult ([facility]) Discussed with patient their BMI (actual, verses recommended). We have also discussed lifestyle modifications: attempts to perform physical activity as chronic conditions allow, also to monitor dietary intake: increasing protein/fruits/veggies and lowering carb intake (unless contraindicated). Limit sodas, juices, and sugary drinks. Relevant Orders Comprehensive metabolic panel CBC and differential Severe persistent asthma without complication ([facility]) Currently taking Trelegy Singulair Albuterol Was seen on 06/12/24 for Hospital follow up. Is following closely with Pulmonology; Tracheobronchomalacia documented in this encounterKindred HospitalAsfpdjfqsn72-97-2117 Instructions* Patient Instructions* Aida Reese NP - 07/11/2024 8:30 AM EDT FASTING labs ordered. Nothing to eat or drink for 12 hours prior to blood draw. Water and black coffee ok. documented in this [facility]08-27-2024 NotePatient: Diana Champion Pre-sedation Evaluation: Sedation necessary for: Analgesia Requesting service: Pulmonary History of Present Illness: Refer to H &P RECEIVING LEAD/Current Medications: Reviewed Recent sedation/surgery (24 hours): No Review of Systems: Negative NPO guidelines met: Yes Physical Exam: Airway Mallampati: II Neck ROM: full Cardiovascular (-) murmur, friction rub, carotid bruits Dental Pulmonary (+) on nasal cannula (-) tachypnea, accessory muscle use (-) wheezes, rales Plan: ASA 3 Moderate Proceed with consious sedation for Bronchoscopy and BALUnLouis [facility] Note Attestation signed by Ghulam Petersen MD at 07/08/2024 2:41 PM I was present and supervised the entire procedure PULMONARY & CRITICAL CARE MEDICINE PROCEDURE NOTE FLEXIBLE FIBEROPTIC BRONCHOSCOPY INDICATIONS AND HISTORY: Please refer to H&P PROCEDURE: Flexible Fiberoptic Bronchoscopy with airway inspection ANESTHESIA: Conscious sedation PREPROCEDURE DIAGNOSIS: Recurrent pneumonias, concern for dynamic airway collapse, chronic cough POSTPROCEDURE DIAGNOSIS: Severe tracheobronchomalacia PROCEDURE BEN DAY ARTIST: Goran Canseco ATTENDING PHYSICIAN: Dr. Ghulam Petersen [...] by trained RN and supervised by the Inspector Screen Printing. Continuous monitoring of heart rate, respiratory rate, [...] in 1-2 weeks for treatment options for [facility]acia[facility] Note Attestation signed by Emelia Yoo MD [...] Age: 68 y.o. : 1955 Account No.: [id number] Referring physician: Dr. Bo Mcclain Chief complaint: Recurreny pneumonia HPI Diana Champion is a 68 y.o. female with PMHx of reportedly COPD, chronic hypoxic respiratory failure on 2L home O2 who is presenting to clinic as a new patient after being referred by Dr. Bo Baker of [facility]. Patient has been admitted 4 times [...] Past Medical History: Diagnosis Date Asthma Cancer ([facility]) COPD (chronic obstructive pulmonary disease) (CMS/[facility]) Coronary artery disease GERD (gastroesophageal [...] mouth every other day. Yes Historical Provider, ojciiofmcsn-ezwzzgwlz-ixxxykmh 100-62.5-25 mcg blister with device Yes Historical [...] mEq ER ta (more content not included)... [facility]07-08-2024 [facility] Note Chief Complaint: Patient here for 1 year follow up CAD and hypertension. She was recently discharged from [facility] for Covid-19. She says hydrochlorothiazide [...] breath since then. 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 Her chest pain is noncardiac. She [...] a past medical history of Asthma, Cancer ([facility]), COPD (chronic obstructive pulmonary disease) ([facility]), Coronary artery disease, GERD (gastroesophageal [...] mouth every other day., Disp: , Rfl: [id number]-xbyipumsx-fnldfioc 100-62.5-25 mcg blister with device, , Disp: [...] Physical Examination: GENERAL: a (more content not included)...[facility] 09-07-2023 Evaluation note* Encounter Date Diagnosis Assessment Notes Treatment Notes Treatment Clinical Notes Sep, Hypomagnesemia (ICD-10 - E83.42) [facility] Other 10-23-2023 Evaluation note* Encounter Date Diagnosis Assessment Notes Treatment Notes Treatment Clinical Notes Aug, Nico guillen kid w cr kid I-IV (ICD-10 - I12.9) [facility] Other 10-12-2023 Evaluation note* Encounter Date Diagnosis [...] PPI induced GI losses. Continue oral Magnesium [facility] [employer] Other 05-19-2023 NotePROCEDURE: XR HIP RT 2 3V W PELVIS HISTORY: Pain in right hip joint , chronic COMPARISON: XR L-spine 02/26/2019, XR left hip with pelvis 03/11/2017 FINDINGS: BONES:Complete loss of the right hip joint space with qjsr-vb-qmig articulation, subchondral sclerosis and cysts, and large [...] GRANADOS Date: 2023-03-24 12:55[facility]04-27-2023 Evaluation note* Encounter Date Diagnosis Assessment Notes [...] PPI induced GI losses. Continue oral Magnesium [facility] [employer] [facility] Encounter Date Diagnosis Assessment Notes Treatment Notes Treatment Clinical Notes Nov, Hypokalemia (ICD-10 - E87.6) Nov,Hypomagnesemia (ICD-10 - E83.42) [employer] [facility] [employer] Other 10-04-2022 Evaluation note* Encounter Date Diagnosis [...] office does not accept her new insurance. [facility] [employer] Other 09-02-2022 Evaluation note* Encounter Date Diagnosis Assessment Notes Treatment Notes Treatment Clinical Notes Jul, History of colon cancer (ICD-10 - Z85.038) [facility] [place] Other 01-12-2022 Evaluation note* Encounter Date Diagnosis [...] potassium wasting. I have prescribed oral potassium. [facility] [place] Other 10-25-2021 Evaluation note* Encounter Date Diagnosis [...] [facility] document [facility] [employer] Other Evaluation + Plan note Future Appointments Appointment Date:01/13/2025 09:40:00 AM Scheduled Provider:MAG BLOUNT PA-C Location:[facility] Appointment Type:URO Office Visit Diagnostic Tests Pending * Urine Culture 10/15/24 [facility] Evaluation + Plan note Future Appointments Appointment Date:01/13/2025 09:40:00 AM Scheduled Provider:MAG BLOUNT PA-C Location:[facility] Appointment Type:URO Office Visit [facility] evaluation + Plan note Future Appointments Appointment Date:06/23/2025 09:40:00 AM Scheduled Provider:MAG BLOUNT PA-C Location:[facility] Appointment Type:URO Office Visit [facility] evaluation + Plan note Future Appointments Appointment Date:07/08/2025 02:30:00 PM Scheduled Provider:Amalia Stephens PA-C Location:[facility] Appointment Type:URO Office Visit [facility] evaluation + Plan note Future Appointments Appointment Date:09/23/2025 08:00:00 AM Scheduled Provider:Amalia Stephens PA-C Location:[facility] Appointment Type:URO Office Visit [facility] evaluation noteNo [employer] Other evaluation note* Diagnosis Onset Date Resolution Status History of colon cancer acute [facility] Work Phone: evaluation note* Diagnosis Onset Date Resolution Status Hypokalemia acuteHypomagnesemiaacuteStage 3 chronic kidney diseaseacuteCOVIDnoneactive Pneumonianoneactive [facility] Work Phone: evaluation note* Diagnosis Moderate persistent asthma with exacerbation ([facility]/HCC)- Primary Unspecified asthma, with exacerbation Non-recurrent acute suppurative otitis media of both ears without spontaneous rupture of tympanic membranes Colorectal cancer ([facility]/HCC) Malignant neoplasm of colon, unspecified site Chronic heart failure with preserved ejection fraction ([facility]/HCC) Pulmonary emphysema, unspecified emphysema type ([facility]/HCC) Moderate episode of recurrent major depressive disorder ([facility])- Primary Moderate persistent asthma with exacerbation ([facility]) Unspecified asthma, with exacerbation Medicare annual wellness visit, subsequent Severe persistent asthma with acute exacerbation ([facility])- Primary Hospital discharge follow-up Other follow-up examination Severe persistent asthma without complication ([facility]/HCC)- Primary Essential hypertension ([facility]) Unspecified essential hypertension JEANNE (acute kidney injury) ([facility]) Leukocytosis, unspecified type Chronic respiratory failure with hypoxia ([facility]) Chronic bilateral low back pain without sciatica- Primary Vitamin D deficiency Chronic bilateral low back pain without sciatica- Primary Pneumonia due to infectious organism, unspecified laterality, unspecified part of lung- Primary Screening mammogram for breast cancer Chronic respiratory failure with hypoxia ([facility]) Pulmonary emphysema, unspecified emphysema type ([facility]) Essential hypertension ([facility]) Unspecified essential hypertension Morbid obesity with BMI of 40.0-44.9, adult ([facility]) Hospital discharge follow-up- Primary Other follow-up examination Chronic respiratory failure with hypoxia ([facility]) Severe persistent asthma without complication ([facility]) Severe persistent asthma with acute exacerbation ([facility])- Primary Severe persistent asthma with exacerbation ([facility])- Primary Unspecified asthma, with exacerbation Hospital discharge follow-up- Primary Other follow-up examination Chronic respiratory failure with hypoxia ([facility])- Primary Hospital discharge follow-up Other follow-up examination Benign essential HTN ([facility]) Chronic heart failure with preserved ejection fraction ([facility]) Severe persistent asthma without complication ([facility]) Moderate mixed hyperlipidemia not requiring statin therapy ([facility]) Morbid obesity with BMI of 40.0-44.9, adult ([facility]) Opioid use Chronic, continuous use of opioids Chronic back pain greater than 3 months duration Moderate persistent asthma with exacerbation ([facility])- Primary Unspecified asthma, with exacerbation Diarrhea, unspecified type documented in this encounter [facility] HealthcareEvaluation note* Diagnosis Moderate persistent asthma with exacerbation ([facility])- Primary Unspecified asthma, with exacerbation Non-recurrent acute suppurative otitis media of both ears without spontaneous rupture of tympanic membranes Colorectal cancer ([facility]) Malignant neoplasm of colon, unspecified site Chronic heart failure with preserved ejection fraction ([facility]) Pulmonary emphysema, unspecified emphysema type ([facility]/HCC) Moderate episode of recurrent major depressive disorder ([facility])- Primary Moderate persistent asthma with exacerbation ([facility]) Unspecified asthma, with exacerbation Medicare annual wellness visit, subsequent Severe persistent asthma with acute exacerbation ([facility])- Primary Hospital discharge follow-up Other follow-up examination Severe persistent asthma without complication ([facility]/HCC)- Primary Essential hypertension ([facility]) Unspecified essential hypertension JEANNE (acute kidney injury) ([facility]) Leukocytosis, unspecified type Chronic respiratory failure with hypoxia ([facility]) Chronic bilateral low back pain without sciatica- Primary Vitamin D deficiency Chronic bilateral low back pain without sciatica- Primary Pneumonia due to infectious organism, unspecified laterality, unspecified part of lung- Primary Screening mammogram for breast cancer Chronic respiratory failure with hypoxia ([facility]) Pulmonary emphysema, unspecified emphysema type ([facility]) Essential hypertension ([facility]) Unspecified essential hypertension Morbid obesity with BMI of 40.0-44.9, adult ([facility]) Hospital discharge follow-up- Primary Other follow-up examination Chronic respiratory failure with hypoxia ([facility]) Severe persistent asthma without complication ([facility]) Severe persistent asthma with acute exacerbation ([facility])- Primary Severe persistent asthma with exacerbation ([facility])- Primary Unspecified asthma, with exacerbation Hospital discharge follow-up- Primary Other follow-up examination Chronic respiratory failure with hypoxia ([facility])- Primary Hospital discharge follow-up Other follow-up examination Benign essential HTN ([facility]) Chronic heart failure with preserved ejection fraction ([facility]) Severe persistent asthma without complication ([facility]) Moderate mixed hyperlipidemia not requiring statin therapy ([facility]) Morbid obesity with BMI of 40.0-44.9, adult ([facility]) Opioid use Chronic, continuous use of opioids Chronic back pain greater than 3 months duration Restless leg syndrome Restless legs syndrome (RLS) documented in this encounter [facility]* Diagnosis Moderate persistent asthma with exacerbation ([facility])- Primary Unspecified asthma, with exacerbation Non-recurrent acute suppurative otitis media of both ears without spontaneous rupture of tympanic membranes Colorectal cancer ([facility]) Malignant neoplasm of colon, unspecified site Chronic heart failure with preserved ejection fraction ([facility]) Pulmonary emphysema, unspecified emphysema type ([facility]) Moderate episode of recurrent major depressive disorder ([facility])- Primary Moderate persistent asthma with exacerbation (CMS/HCC) Unspecified asthma, with exacerbation Medicare annual wellness visit, subsequent Severe persistent asthma with acute exacerbation ([facility]/HCC)- Primary Hospital discharge follow-up Other follow-up examination Severe persistent asthma without complication (CMS/HCC)- Primary Essential hypertension (CMS/HCC) Unspecified essential hypertension JEANNE (acute kidney injury) ([facility]/HCC) Leukocytosis, unspecified type Chronic respiratory failure with hypoxia (CMS/HCC) Chronic bilateral low back pain without sciatica- Primary Vitamin D deficiency Chronic bilateral low back pain without sciatica- Primary Pneumonia due to infectious organism, unspecified laterality, unspecified part of lung- Primary Screening mammogram for breast cancer Chronic respiratory failure with hypoxia (CMS/HCC) Pulmonary emphysema, unspecified emphysema type ([facility]/HCC) Essential hypertension ([facility]/HCC) Unspecified essential hypertension Morbid obesity with BMI of 40.0-44.9, adult ([facility]) Hospital discharge follow-up- Primary Other follow-up examination Chronic respiratory failure with hypoxia (CMS/HCC) Severe persistent asthma without complication ([facility]/HCC) Severe persistent asthma with acute exacerbation ([facility]/HCC)- Primary Severe persistent asthma with exacerbation ([facility]/HCC)- Primary Unspecified asthma, with exacerbation Hospital discharge follow-up- Primary Other follow-up examination Chronic respiratory failure with hypoxia ([facility]/HCC)- Primary Hospital discharge follow-up Other follow-up examination Benign essential HTN ([facility]/HCC) Chronic heart failure with preserved ejection fraction ([facility]/HCC) Severe persistent asthma without complication ([facility]/HCC) Moderate mixed hyperlipidemia not requiring statin therapy ([facility]/HCC) Morbid obesity with BMI of 40.0-44.9, adult ([facility]) Opioid use Chronic, continuous use of opioids Chronic back pain greater than 3 months duration Gastroesophageal reflux disease without esophagitis Esophageal reflux documented in this encounter [facility] HealthcareEvaluation noteNo assessment information [facility]Ad[facility] Work Phone: Evaluation note* Diagnosis Moderate persistent asthma with exacerbation ([facility]/HCC)- Primary Unspecified asthma, with exacerbation Non-recurrent acute suppurative otitis media of both ears without spontaneous rupture of tympanic membranes Colorectal cancer ([facility]/HCC) Malignant neoplasm of colon, unspecified site Chronic heart failure with preserved ejection fraction ([facility]/HCC) Pulmonary emphysema, unspecified emphysema type ([facility]/HCC) Moderate episode of recurrent major depressive disorder ([facility]/HCC)- Primary Moderate persistent asthma with exacerbation ([facility]/HCC) Unspecified asthma, with exacerbation Medicare annual wellness visit, subsequent Severe persistent asthma with acute exacerbation ([facility]/HCC)- Primary Hospital discharge follow-up Other follow-up examination Severe persistent asthma without complication ([facility]/HCC)- Primary Essential hypertension ([facility]) Unspecified essential hypertension JEANNE (acute kidney injury) ([facility]) Leukocytosis, unspecified type Chronic respiratory failure with hypoxia ([facility]) Chronic bilateral low back pain without sciatica- Primary Vitamin D deficiency Chronic bilateral low back pain without sciatica- Primary Pneumonia due to infectious organism, unspecified laterality, unspecified part of lung- Primary Screening mammogram for breast cancer Chronic respiratory failure with hypoxia ([facility]) Pulmonary emphysema, unspecified emphysema type ([facility]) Essential hypertension ([facility]) Unspecified essential hypertension Morbid obesity with BMI of 40.0-44.9, adult ([facility]) Hospital discharge follow-up- Primary Other follow-up examination Chronic respiratory failure with hypoxia ([facility]) Severe persistent asthma without complication ([facility]) Severe persistent asthma with acute exacerbation ([facility])- Primary Severe persistent asthma with exacerbation ([facility])- Primary Unspecified asthma, with exacerbation Hospital discharge follow-up- Primary Other follow-up examination Chronic respiratory failure with hypoxia ([facility])- Primary Hospital discharge follow-up Other follow-up examination Benign essential HTN ([facility]) Chronic heart failure with preserved ejection fraction ([facility]) Severe persistent asthma without complication ([facility]) Moderate mixed hyperlipidemia not requiring statin therapy ([facility]) Morbid obesity with BMI of 40.0-44.9, adult ([facility]) Opioid use Chronic, continuous use of opioids Chronic back pain greater than 3 months duration Vaginal guero- Primary Candidiasis of vulva and vagina documented in this encounter [facility] HealthcareEvaluation note* Diagnosis Moderate persistent asthma with exacerbation ([facility])- Primary Unspecified asthma, with exacerbation Non-recurrent acute suppurative otitis media of both ears without spontaneous rupture of tympanic membranes Colorectal cancer ([facility]) Malignant neoplasm of colon, unspecified site Chronic heart failure with preserved ejection fraction ([facility]) Pulmonary emphysema, unspecified emphysema type ([facility]) Moderate episode of recurrent major depressive disorder ([facility])- Primary Moderate persistent asthma with exacerbation ([facility]) Unspecified asthma, with exacerbation Medicare annual wellness visit, subsequent Severe persistent asthma with acute exacerbation ([facility]/HCC)- Primary Hospital discharge follow-up Other follow-up examination Severe persistent asthma without complication ([facility]/HCC)- Primary Essential hypertension ([facility]/HCC) Unspecified essential hypertension JEANNE (acute kidney injury) ([facility]/HCC) Leukocytosis, unspecified type Chronic respiratory failure with hypoxia (CMS/HCC) Chronic bilateral low back pain without sciatica- Primary Vitamin D deficiency Chronic bilateral low back pain without sciatica- Primary Pneumonia due to infectious organism, unspecified laterality, unspecified part of lung- Primary Screening mammogram for breast cancer Chronic respiratory failure with hypoxia ([facility]/HCC) Pulmonary emphysema, unspecified emphysema type ([facility]/HCC) Essential hypertension ([facility]/HCC) Unspecified essential hypertension Morbid obesity with BMI of 40.0-44.9, adult ([facility]) Hospital discharge follow-up- Primary Other follow-up examination Chronic respiratory failure with hypoxia (CMS/HCC) Severe persistent asthma without complication ([facility]/HCC) Severe persistent asthma with acute exacerbation ([facility]/HCC)- Primary Severe persistent asthma with exacerbation ([facility]/HCC)- Primary Unspecified asthma, with exacerbation Hospital discharge follow-up- Primary Other follow-up examination Chronic respiratory failure with hypoxia ([facility])- Primary Hospital discharge follow-up Other follow-up examination Benign essential HTN ([facility]) Chronic heart failure with preserved ejection fraction ([facility]/HCC) Severe persistent asthma without complication ([facility]/HCC) Moderate mixed hyperlipidemia not requiring statin therapy ([facility]) Morbid obesity with BMI of 40.0-44.9, adult ([facility]) Opioid use Chronic, continuous use of opioids Chronic back pain greater than 3 months duration Restless leg syndrome Restless legs syndrome (RLS) documented in this encounter [facility] HealthcareEvaluation note* Diagnosis Moderate persistent asthma with exacerbation ([facility]/HCC)- Primary Unspecified asthma, with exacerbation Non-recurrent acute suppurative otitis media of both ears without spontaneous rupture of tympanic membranes Colorectal cancer ([facility]/HCC) Malignant neoplasm of colon, unspecified site Chronic heart failure with preserved ejection fraction ([facility]/HCC) Pulmonary emphysema, unspecified emphysema type ([facility]/HCC) Moderate episode of recurrent major depressive disorder ([facility])- Primary Moderate persistent asthma with exacerbation ([facility]/HCC) Unspecified asthma, with exacerbation Medicare annual wellness visit, subsequent Severe persistent asthma with acute exacerbation ([facility]/HCC)- Primary Hospital discharge follow-up Other follow-up [...] Morbid obesity with BMI of 40.0-44.9, adult ([facility]) Hospital discharge follow-up- Primary Other follow-up examination Chronic respiratory failure with hypoxia (CMS/HCC) Severe persistent asthma without complication (CMS/HCC) Severe persistent asthma with acute exacerbation (CMS/HCC)- Primary Severe persistent asthma with exacerbation ([facility]/HCC)- Primary Unspecified asthma, with exacerbation Hospital discharge follow-up- Primary Other follow-up examination Chronic respiratory failure with hypoxia (CMS/HCC)- Primary Hospital discharge follow-up Other follow-up examination Benign essential HTN (CMS/HCC) Chronic heart failure with preserved ejection fraction (CMS/HCC) Severe persistent asthma without complication (CMS/HCC) Moderate mixed hyperlipidemia not requiring statin therapy ([facility]/HCC) Morbid obesity with BMI of 40.0-44.9, adult ([facility]) Opioid use Chronic, continuous use of opioids Chronic back pain greater than 3 months duration Urge incontinence- Primary Morbid obesity with BMI of 40.0-44.9, adult ([facility]) 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 Stage 3a chronic kidney disease (HCC) ([facility]/HCC) Chronic respiratory failure with hypoxia (CMS/HCC) documented in this encounter [facility] HealthcareEvaluation note* Diagnosis Moderate persistent asthma with exacerbation (CMS/HCC)- Primary Unspecified asthma, with exacerbation Non-recurrent acute suppurative otitis media of both ears without spontaneous rupture of tympanic membranes Colorectal cancer ([facility]/HCC) Malignant neoplasm of colon, unspecified site Chronic heart failure with preserved ejection fraction (CMS/HCC) Pulmonary emphysema, unspecified emphysema type (CMS/HCC) Moderate episode of recurrent major depressive disorder (CMS/HCC)- Primary Moderate persistent asthma with exacerbation (CMS/HCC) Unspecified asthma, with exacerbation Medicare annual wellness visit, subsequent Severe persistent asthma with acute exacerbation ([facility]/HCC)- Primary Hospital discharge follow-up Other follow-up examination Severe persistent asthma without complication (CMS/HCC)- Primary Essential hypertension ([facility]/HCC) Unspecified essential hypertension JEANNE (acute kidney injury) ([facility]) Leukocytosis, unspecified type Chronic respiratory failure with hypoxia ([facility]/HCC) Chronic bilateral low back pain without sciatica- Primary Vitamin D deficiency Chronic bilateral low back pain without sciatica- Primary Pneumonia due to infectious organism, unspecified laterality, unspecified part of lung- Primary Screening mammogram for breast cancer Chronic respiratory failure with hypoxia (CMS/HCC) Pulmonary emphysema, unspecified emphysema type ([facility]/HCC) Essential hypertension ([facility]/HCC) Unspecified essential hypertension Morbid obesity with BMI of 40.0-44.9, adult ([facility]) Hospital discharge follow-up- Primary Other follow-up examination Chronic respiratory failure with hypoxia (CMS/HCC) Severe persistent asthma without complication ([facility]/HCC) Severe persistent asthma with acute exacerbation ([facility]/HCC)- Primary Severe persistent asthma with exacerbation ([facility]/HCC)- Primary Unspecified asthma, with exacerbation Hospital discharge follow-up- Primary Other follow-up examination Chronic respiratory failure with hypoxia ([facility]/HCC)- Primary Hospital discharge follow-up Other follow-up examination Benign essential HTN ([facility]) Chronic heart failure with preserved ejection fraction ([facility]/HCC) Severe persistent asthma without complication ([facility]/HCC) Moderate mixed hyperlipidemia not requiring statin therapy ([facility]) Morbid obesity with BMI of 40.0-44.9, adult ([facility]) Opioid use Chronic, continuous use of opioids Chronic back pain greater than 3 months duration Urge incontinence- Primary Morbid obesity with BMI of 40.0-44.9, adult ([facility]) 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 Stage 3a chronic kidney disease (HCC) ([facility]) Chronic respiratory failure with hypoxia ([facility]) Neoplasm of unspecified behavior of bone, soft tissue, and skin- Primary documented in this encounter [facility]* Diagnosis Moderate persistent asthma with exacerbation (CMS/HCC)- Primary Unspecified asthma, with exacerbation Non-recurrent acute suppurative otitis media of both ears without spontaneous rupture of tympanic membranes Colorectal cancer ([facility]/HCC) Malignant neoplasm of colon, unspecified site Chronic heart failure with preserved ejection fraction ([facility]/HCC) Pulmonary emphysema, unspecified emphysema type (CMS/HCC) Moderate episode of recurrent major depressive disorder (CMS/HCC)- Primary Moderate persistent asthma with exacerbation ([facility]/HCC) Unspecified asthma, with exacerbation Medicare annual wellness visit, subsequent Severe persistent asthma with acute exacerbation ([facility]/HCC)- Primary Hospital discharge follow-up Other follow-up examination Severe persistent asthma without complication (CMS/HCC)- Primary Essential hypertension (CMS/HCC) Unspecified essential hypertension JEANNE (acute kidney injury) ([facility]) Leukocytosis, unspecified type Chronic respiratory failure with hypoxia (CMS/HCC) Chronic bilateral low back pain without sciatica- Primary Vitamin D deficiency Chronic bilateral low back pain without sciatica- Primary Pneumonia due to infectious organism, unspecified laterality, unspecified part of lung- Primary Screening mammogram for breast cancer Chronic respiratory failure with hypoxia (CMS/HCC) Pulmonary emphysema, unspecified emphysema type ([facility]/HCC) Essential hypertension ([facility]/HCC) Unspecified essential hypertension Morbid obesity with BMI of 40.0-44.9, adult ([facility]) Hospital discharge follow-up- Primary Other follow-up examination Chronic respiratory failure with hypoxia (CMS/HCC) Severe persistent asthma without complication (CMS/HCC) Severe persistent asthma with acute exacerbation (CMS/HCC)- Primary Severe persistent asthma with exacerbation ([facility]/HCC)- Primary Unspecified asthma, with exacerbation Hospital discharge follow-up- Primary Other follow-up examination Chronic respiratory failure with hypoxia ([facility]/HCC)- Primary Hospital discharge follow-up Other follow-up examination Benign essential HTN ([facility]/HCC) Chronic heart failure with preserved ejection fraction ([facility]/HCC) Severe persistent asthma without complication ([facility]/HCC) Moderate mixed hyperlipidemia not requiring statin therapy ([facility]) Morbid obesity with BMI of 40.0-44.9, adult ([facility]) Opioid use Chronic, continuous use of opioids Chronic back pain greater than 3 months duration Urge incontinence- Primary Morbid obesity with BMI of 40.0-44.9, adult ([facility]) 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 Stage 3a chronic kidney disease (HCC) ([facility]) Chronic respiratory failure with hypoxia ([facility]) Urge incontinence documented in this encounter [facility]* Diagnosis Moderate persistent asthma with exacerbation ([facility]/HCC)- Primary Unspecified asthma, with exacerbation Non-recurrent [...] Primary Essential hypertension (CMS/HCC) Unspecified essential hypertension JENANE (acute kidney injury) (CMS/HCC) Leukocytosis, unspecified type [...] disorder (CMS/HCC) documented in this encounter [facility]* Diagnosis Benign essential HTN (CMS/HCC)- Primary Chronic heart failure with preserved ejection fraction (CMS/HCC) Severe persistent asthma without complication (CMS/HCC) Moderate mixed hyperlipidemia not requiring statin therapy (CMS/HCC) Morbid obesity with BMI of 40.0-44.9, adult ([facility]) documented in this encounter [facility]* Diagnosis Chronic bilateral low back pain without sciatica documented in this encounter [facility]* Diagnosis Moderate episode of recurrent major depressive disorder (HCC) ([facility]) Urge incontinence documented in this encounter [facility]* Diagnosis Moderate persistent asthma [...] (CMS/HCC)- Primary Moderate persistent asthma with exacerbation ([facility]/HCC) Unspecified asthma, with exacerbation Medicare annual wellness visit, subsequent Severe persistent asthma with acute exacerbation ([facility]/HCC)- Primary Hospital discharge follow-up Other follow-up [...] Morbid obesity with BMI of 40.0-44.9, adult ([facility]) Hospital discharge follow-up- Primary Other [...] fraction (CMS/HCC) Severe persistent asthma without complication ([facility]/HCC) Moderate mixed hyperlipidemia not requiring statin therapy ([facility]/HCC) Morbid obesity with BMI of 40.0-44.9, adult ([facility]) Opioid use Chronic, continuous use of opioids Chronic back pain greater than 3 months duration Urge incontinence- Primary Morbid obesity with BMI of 40.0-44.9, adult ([facility]) 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 Stage 3a chronic kidney disease (HCC) ([facility]/HCC) Chronic respiratory failure with hypoxia ([facility]/HCC) Moderate episode of recurrent major depressive disorder ([facility]) Restless leg syndrome Restless legs syndrome (RLS) documented in this encounter [facility]* Diagnosis Moderate persistent asthma with exacerbation ([facility]/HCC)- Primary Unspecified asthma, with exacerbation Non-recurrent acute suppurative otitis media of both ears without spontaneous rupture of tympanic membranes Colorectal cancer ([facility]) Malignant neoplasm of colon, unspecified site Chronic heart failure with preserved ejection fraction ([facility]/HCC) Pulmonary emphysema, unspecified emphysema type (CMS/HCC) Moderate episode of recurrent major depressive disorder ([facility]/HCC)- Primary Moderate persistent asthma with exacerbation ([facility]) Unspecified asthma, with exacerbation Medicare annual wellness visit, subsequent Severe persistent asthma with acute exacerbation ([facility]/HCC)- Primary Hospital discharge follow-up Other follow-up examination Severe persistent asthma without complication (CMS/HCC)- Primary Essential hypertension ([facility]/HCC) Unspecified essential hypertension JEANNE (acute kidney injury) ([facility]) Leukocytosis, unspecified type Chronic respiratory failure with hypoxia ([facility]/HCC) Chronic bilateral low back pain without sciatica- Primary Vitamin D deficiency Chronic bilateral low back pain without sciatica- Primary Pneumonia due to infectious organism, unspecified laterality, unspecified part of lung- Primary Screening mammogram for breast cancer Chronic respiratory failure with hypoxia (CMS/HCC) Pulmonary emphysema, unspecified emphysema type ([facility]/HCC) Essential hypertension ([facility]/HCC) Unspecified essential hypertension Morbid obesity with BMI of 40.0-44.9, adult ([facility]) Hospital discharge follow-up- Primary Other follow-up examination Chronic respiratory failure with hypoxia (CMS/HCC) Severe persistent asthma without complication (CMS/HCC) Severe persistent asthma with acute exacerbation ([facility]/HCC)- Primary Severe persistent asthma with exacerbation (CMS/HCC)- Primary Unspecified asthma, with exacerbation Hospital discharge follow-up- Primary Other follow-up examination Chronic respiratory failure with hypoxia ([facility]/HCC)- Primary Hospital discharge follow-up Other follow-up examination Benign essential HTN ([facility]/HCC) Chronic heart failure with preserved ejection fraction (CMS/HCC) Severe persistent asthma without complication (CMS/HCC) Moderate mixed hyperlipidemia not requiring statin therapy ([facility]) Morbid obesity with BMI of 40.0-44.9, adult ([facility]) Opioid use Chronic, continuous use of opioids Chronic back pain greater than 3 months duration Urge incontinence- Primary Morbid obesity with BMI of 40.0-44.9, adult ([facility]) 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 Stage 3a chronic kidney disease (HCC) ([facility]) Chronic respiratory failure with hypoxia ([facility]) Chronic obstructive pulmonary disease with acute lower respiratory infection ([facility])- Primary Primary HSV infection of mouth documented in this encounter [facility]* Diagnosis Moderate persistent asthma with exacerbation ([facility]/HCC)- Primary Unspecified asthma, with exacerbation Non-recurrent acute suppurative otitis media of both ears without spontaneous rupture of tympanic membranes Colorectal cancer ([facility]) Malignant neoplasm of colon, unspecified site Chronic heart failure with preserved ejection fraction ([facility]) Pulmonary emphysema, unspecified emphysema type ([facility]/HCC) Moderate episode of recurrent major depressive disorder ([facility]/HCC)- Primary Moderate persistent asthma with exacerbation ([facility]) Unspecified asthma, with exacerbation Medicare annual wellness visit, subsequent Severe persistent asthma with acute exacerbation ([facility])- Primary Hospital discharge follow-up Other follow-up examination Severe persistent asthma without complication ([facility]/HCC)- Primary Essential hypertension ([facility]/HCC) Unspecified essential hypertension JEANNE (acute kidney injury) ([facility]) Leukocytosis, unspecified type Chronic respiratory failure with hypoxia ([facility]/HCC) Chronic bilateral low back pain without sciatica- Primary Vitamin D deficiency Chronic bilateral low back pain without sciatica- Primary Pneumonia due to infectious organism, unspecified laterality, unspecified part of lung- Primary Screening mammogram for breast cancer Chronic respiratory failure with hypoxia (CMS/HCC) Pulmonary emphysema, unspecified emphysema type ([facility]/HCC) Essential hypertension ([facility]/HCC) Unspecified essential hypertension Morbid obesity with BMI of 40.0-44.9, adult ([facility]/HCC) Hospital discharge follow-up- Primary Other follow-up examination [...] Morbid obesity with BMI of 40.0-44.9, adult ([facility]/HCC) Opioid use Chronic, continuous use of opioids Chronic back pain greater than 3 months duration Urge incontinence- Primary Morbid obesity with BMI of 40.0-44.9, adult ([facility]) 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 Stage 3a chronic kidney disease (HCC) ([facility]/HCC) Chronic respiratory failure with hypoxia ([facility]/HCC) Chronic obstructive pulmonary disease with acute lower respiratory infection ([facility]/HCC)- Primary Primary HSV infection of mouth Pulmonary emphysema, unspecified emphysema type ([facility]/HCC)- Primary documented in this encounter [facility] [...] subsequent Severe persistent asthma with acute exacerbation ([facility]/HCC)- Primary Hospital discharge follow-up Other follow-up [...] Morbid obesity with BMI of 40.0-44.9, adult ([facility]) Opioid use Chronic, continuous use of opioids Chronic back pain greater than 3 months duration Urge incontinence- Primary Morbid obesity with BMI of 40.0-44.9, adult ([facility]) 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 Stage 3a chronic kidney disease (HCC) (CMS/HCC) Chronic respiratory failure with hypoxia (CMS/HCC) Chronic obstructive pulmonary disease with acute lower respiratory infection (CMS/HCC)- Primary Primary HSV infection of mouth Pulmonary emphysema, unspecified emphysema type (CMS/HCC)- Primary Gastroesophageal reflux disease without esophagitis Esophageal reflux documented in this encounter [facility]* Diagnosis Moderate persistent asthma with [...] Unspecified essential hypertension JEANNE (acute kidney injury) ([facility]/HCC) Leukocytosis, unspecified type Chronic respiratory failure with hypoxia ([facility]/HCC) Chronic bilateral low back pain without sciatica- Primary Vitamin D deficiency Chronic bilateral low back pain without sciatica- Primary Pneumonia due to infectious organism, unspecified laterality, unspecified part of lung- Primary Screening mammogram for breast cancer Chronic respiratory failure with hypoxia (CMS/HCC) Pulmonary emphysema, unspecified emphysema type ([facility]/HCC) Essential hypertension ([facility]/HCC) Unspecified essential hypertension Morbid obesity with BMI of 40.0-44.9, adult ([facility]) Hospital discharge follow-up- Primary Other follow-up examination Chronic respiratory failure with hypoxia (CMS/HCC) Severe persistent asthma without complication ([facility]/HCC) Severe persistent asthma with acute exacerbation ([facility]/HCC)- Primary Severe persistent asthma with exacerbation ([facility]/HCC)- Primary Unspecified asthma, with exacerbation Hospital discharge follow-up- Primary Other follow-up examination Chronic respiratory failure with hypoxia ([facility])- Primary Hospital discharge follow-up Other follow-up examination Benign essential HTN ([facility]) Chronic heart failure with preserved ejection fraction ([facility]/HCC) Severe persistent asthma without complication ([facility]/HCC) Moderate mixed hyperlipidemia not requiring statin therapy ([facility]) Morbid obesity with BMI of 40.0-44.9, adult ([facility]) Opioid use Chronic, continuous use of opioids Chronic back pain greater than 3 months duration Urge incontinence- Primary Morbid obesity with BMI of 40.0-44.9, adult ([facility]) 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 Stage 3a chronic kidney disease (HCC) ([facility]) Chronic respiratory failure with hypoxia ([facility]) Chronic obstructive pulmonary disease with acute lower respiratory infection ([facility])- Primary Primary HSV infection of mouth Pulmonary emphysema, unspecified emphysema type ([facility]/HCC)- Primary Restless leg syndrome Restless legs syndrome (RLS) documented in this encounter [facility]* Diagnosis Moderate persistent asthma with exacerbation ([facility]/HCC)- Primary Unspecified asthma, with exacerbation Non-recurrent acute suppurative otitis media of both ears without spontaneous rupture of tympanic membranes Colorectal cancer ([facility]/HCC) Malignant neoplasm of colon, unspecified site Chronic heart failure with preserved ejection fraction (CMS/HCC) Pulmonary emphysema, unspecified emphysema type ([facility]/HCC) Moderate episode of recurrent major depressive disorder (CMS/HCC)- Primary Moderate persistent asthma with exacerbation (CMS/HCC) Unspecified asthma, with exacerbation Medicare annual wellness visit, subsequent Severe persistent asthma with acute exacerbation ([facility]/HCC)- Primary Hospital discharge follow-up Other follow-up examination Severe persistent asthma without complication (CMS/HCC)- Primary Essential hypertension (CMS/HCC) Unspecified essential hypertension JEANNE (acute kidney injury) ([facility]) Leukocytosis, unspecified type Chronic respiratory failure with hypoxia ([facility]) Chronic bilateral low back pain without sciatica- Primary Vitamin D deficiency Chronic bilateral low back pain without sciatica- Primary Pneumonia due to infectious organism, unspecified laterality, unspecified part of lung- Primary Screening mammogram for breast cancer Chronic respiratory failure with hypoxia ([facility]) Pulmonary emphysema, unspecified emphysema type ([facility]) Essential hypertension ([facility]) Unspecified essential hypertension Morbid obesity with BMI of 40.0-44.9, adult ([facility]) Hospital discharge follow-up- Primary Other follow-up examination Chronic respiratory failure with hypoxia ([facility]/HCC) Severe persistent asthma without complication ([facility]/HCC) Severe persistent asthma with acute exacerbation ([facility]/HCC)- Primary Severe persistent asthma with exacerbation ([facility]/HCC)- Primary Unspecified asthma, with exacerbation Hospital discharge follow-up- Primary Other follow-up examination Chronic respiratory failure with hypoxia ([facility])- Primary Hospital discharge follow-up Other follow-up examination Benign essential HTN ([facility]) Chronic heart failure with preserved ejection fraction ([facility]/HCC) Severe persistent asthma without complication ([facility]/HCC) Moderate mixed hyperlipidemia not requiring statin therapy ([facility]) Morbid obesity with BMI of 40.0-44.9, adult ([facility]) Opioid use Chronic, continuous use of opioids Chronic back pain greater than 3 months duration Urge incontinence- Primary Morbid obesity with BMI of 40.0-44.9, adult ([facility]) 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 Stage 3a chronic kidney disease (HCC) ([facility]) Chronic respiratory failure with hypoxia ([facility]) Chronic obstructive pulmonary disease with acute lower respiratory infection ([facility]/HCC)- Primary Primary HSV infection of mouth Pulmonary emphysema, unspecified emphysema type ([facility])- Primary Nevus lipomatosus cutaneus superficialis- Primary Lipoma of other skin and subcutaneous tissue Squamous cell carcinoma of skin of chest documented in this encounter [facility]* Diagnosis Moderate persistent asthma with exacerbation (CMS/HCC)- Primary Unspecified asthma, with exacerbation Non-recurrent acute suppurative otitis media of both ears without spontaneous rupture of tympanic membranes Colorectal cancer ([facility]/HCC) Malignant neoplasm of colon, unspecified site Chronic heart failure with preserved ejection fraction (CMS/HCC) Pulmonary emphysema, unspecified emphysema type (CMS/HCC) Moderate episode of recurrent major depressive disorder (CMS/HCC)- Primary Moderate persistent asthma with exacerbation ([facility]/HCC) Unspecified asthma, with exacerbation Medicare annual wellness visit, subsequent Severe persistent asthma with acute exacerbation (CMS/HCC)- Primary Hospital discharge follow-up Other follow-up examination Severe persistent asthma without complication (CMS/HCC)- Primary Essential hypertension ([facility]/HCC) Unspecified essential hypertension JEANNE (acute kidney injury) [facility] [facility]) Leukocytosis, unspecified type Chronic respiratory failure with hypoxia ([facility]/HCC) Chronic bilateral low back pain without sciatica- Primary Vitamin D deficiency Chronic bilateral low back pain without sciatica- Primary Pneumonia due to infectious organism, unspecified laterality, unspecified part of lung- Primary Screening mammogram for breast cancer Chronic respiratory failure with hypoxia (CMS/HCC) Pulmonary emphysema, unspecified emphysema type (CMS/HCC) Essential hypertension ([facility]/HCC) Unspecified essential hypertension Morbid obesity with BMI of 40.0-44.9, adult ([facility]) Hospital discharge follow-up- Primary Other follow-up examination Chronic respiratory failure with hypoxia (CMS/HCC) Severe persistent asthma without complication ([facility]/HCC) Severe persistent asthma with acute exacerbation ([facility]/HCC)- Primary Severe persistent asthma with exacerbation ([facility]/HCC)- Primary Unspecified asthma, with exacerbation Hospital discharge follow-up- Primary Other follow-up examination Chronic respiratory failure with hypoxia (CMS/HCC)- Primary Hospital discharge follow-up Other follow-up examination Benign essential HTN ([facility]/HCC) Chronic heart failure with preserved ejection fraction (CMS/HCC) Severe persistent asthma without complication ([facility]/HCC) Moderate mixed hyperlipidemia not requiring statin therapy ([facility]) Morbid obesity with BMI of 40.0-44.9, adult ([facility]) Opioid use Chronic, continuous use of opioids Chronic back pain greater than 3 months duration Urge incontinence- Primary Morbid obesity with BMI of 40.0-44.9, adult ([facility]) Neoplasm of uncertain behavior of [...] right knee replacement documented in this encounter [facility] HealthcareEvaluation note* Diagnosis Moderate persistent asthma [...] subsequent Severe persistent asthma with acute exacerbation ([facility]/HCC)- Primary Hospital discharge follow-up Other follow-up examination Severe persistent asthma without complication (CMS/HCC)- Primary Essential hypertension ([facility]/HCC) Unspecified essential hypertension JEANNE (acute kidney injury) ([facility]) Leukocytosis, unspecified type Chronic respiratory failure with hypoxia (CMS/HCC) Chronic bilateral low back pain without sciatica- Primary Vitamin D deficiency Chronic bilateral low back pain without sciatica- Primary Pneumonia due to infectious organism, unspecified laterality, unspecified part of lung- Primary Screening mammogram for breast cancer Chronic respiratory failure with hypoxia (CMS/HCC) Pulmonary emphysema, unspecified emphysema type (CMS/HCC) Essential hypertension ([facility]/HCC) Unspecified essential hypertension Morbid obesity with BMI of 40.0-44.9, adult ([facility]) Hospital discharge follow-up- Primary Other follow-up examination Chronic respiratory failure with hypoxia (CMS/HCC) Severe persistent asthma without complication (CMS/HCC) Severe persistent asthma with acute exacerbation (CMS/HCC)- Primary Severe persistent asthma with exacerbation ([facility]/HCC)- Primary Unspecified asthma, with exacerbation Hospital discharge follow-up- Primary Other follow-up examination Chronic respiratory failure with hypoxia (CMS/HCC)- Primary Hospital discharge follow-up Other follow-up examination Benign essential HTN (CMS/HCC) Chronic heart failure with preserved ejection fraction (CMS/HCC) Severe persistent asthma without complication (CMS/HCC) Moderate mixed hyperlipidemia not requiring statin therapy (CMS/HCC) Morbid obesity with BMI of 40.0-44.9, adult ([facility]) Opioid use Chronic, continuous use of opioids Chronic back pain greater than 3 months duration Urge incontinence- Primary Morbid obesity with BMI of 40.0-44.9, adult ([facility]) 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 Stage 3a chronic kidney disease (HCC) ([facility]) Chronic respiratory failure with hypoxia ([facility]) Chronic obstructive pulmonary disease with acute lower respiratory infection ([facility])- Primary Primary HSV infection of mouth Pulmonary emphysema, unspecified emphysema type ([facility])- Primary Acute pain of right knee- Primary History of total right knee replacement Right hip pain Pain in joint, pelvic region and thigh Arthritis of right hip documented in this encounter [facility] HealthcareEvaluation note* Diagnosis Moderate persistent asthma with exacerbation ([facility])- Primary Unspecified asthma, with exacerbation Non-recurrent acute suppurative otitis media of both ears without spontaneous rupture of tympanic membranes Colorectal cancer ([facility]) Malignant neoplasm of colon, unspecified site Chronic heart failure with preserved ejection fraction ([facility]) Pulmonary emphysema, unspecified emphysema type ([facility]) Moderate episode of recurrent major depressive disorder ([facility])- Primary Moderate persistent asthma with exacerbation ([facility]) Unspecified asthma, with exacerbation Medicare annual wellness visit, subsequent Severe persistent asthma with acute exacerbation ([facility])- Primary Hospital discharge follow-up Other follow-up examination Severe persistent asthma without complication ([facility]/HCC)- Primary Essential hypertension ([facility]) Unspecified essential hypertension JEANNE (acute kidney injury) ([facility]) Leukocytosis, unspecified type Chronic respiratory failure with hypoxia ([facility]) Chronic bilateral low back pain without sciatica- Primary Vitamin D deficiency Chronic bilateral low back pain without sciatica- Primary Pneumonia due to infectious organism, unspecified laterality, unspecified part of lung- Primary Screening mammogram for breast cancer Chronic respiratory failure with hypoxia ([facility]) Pulmonary emphysema, unspecified emphysema type ([facility]) Essential hypertension ([facility]) Unspecified essential hypertension Morbid obesity with BMI of 40.0-44.9, adult ([facility]) Hospital discharge follow-up- Primary Other follow-up examination Chronic respiratory failure with hypoxia ([facility]) Severe persistent asthma without complication ([facility]/HCC) Severe persistent asthma with acute exacerbation ([facility]/HCC)- Primary Severe persistent asthma with exacerbation (CMS/HCC)- Primary Unspecified asthma, with exacerbation Hospital discharge follow-up- Primary Other follow-up examination Chronic respiratory failure with hypoxia ([facility]/HCC)- Primary Hospital discharge follow-up Other follow-up examination Benign essential HTN ([facility]/HCC) Chronic heart failure with preserved ejection fraction (CMS/HCC) Severe persistent asthma without complication (CMS/HCC) Moderate mixed hyperlipidemia not requiring statin therapy ([facility]/HCC) Morbid obesity with BMI of 40.0-44.9, adult ([facility]) Opioid use Chronic, continuous use of opioids Chronic back pain greater than 3 months duration Urge incontinence- Primary Morbid obesity with BMI of 40.0-44.9, adult ([facility]) 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 Stage 3a chronic kidney disease (HCC) ([facility]) Chronic respiratory failure with hypoxia ([facility]) Chronic obstructive pulmonary disease with acute lower respiratory infection ([facility])- Primary Primary HSV infection of mouth Pulmonary emphysema, unspecified emphysema type ([facility])- Primary Seborrheic keratosis- Primary History of SCC (squamous cell carcinoma) of skin Personal history of other malignant neoplasm of skin Lentigines documented in this encounter [facility] HealthcareEvaluation note* Diagnosis Moderate episode of recurrent major depressive disorder ([facility])- Primary Moderate persistent asthma with exacerbation ([facility]/HCC) Unspecified asthma, with exacerbation Medicare annual wellness visit, subsequent Severe persistent asthma with acute exacerbation ([facility]/HCC)- Primary Hospital discharge follow-up Other follow-up examination Severe persistent asthma without complication ([facility]/HCC)- Primary Essential hypertension ([facility]) Unspecified essential hypertension JEANNE (acute kidney injury) ([facility]) Leukocytosis, unspecified type Chronic respiratory failure with hypoxia ([facility]/HCC) Chronic bilateral low back pain without sciatica- Primary Vitamin D deficiency Chronic bilateral low back pain without sciatica- Primary Pneumonia due to infectious organism, unspecified laterality, unspecified part of lung- Primary Screening mammogram for breast cancer Chronic respiratory failure with hypoxia (CMS/HCC) Pulmonary emphysema, unspecified emphysema type ([facility]/HCC) Essential hypertension ([facility]/HCC) Unspecified essential hypertension Morbid obesity with BMI of 40.0-44.9, adult ([facility]) Hospital discharge follow-up- Primary Other follow-up examination Chronic respiratory failure with hypoxia (CMS/HCC) Severe persistent asthma without complication ([facility]/HCC) Severe persistent asthma with acute exacerbation (CMS/HCC)- Primary Hospital discharge follow-up- Primary Other follow-up examination Chronic respiratory failure with hypoxia ([facility]/HCC)- Primary Hospital discharge follow-up Other follow-up examination Benign essential HTN ([facility]/HCC) Chronic heart failure with preserved ejection fraction ([facility]/HCC) Severe persistent asthma without complication (CMS/HCC) Moderate mixed hyperlipidemia not requiring statin therapy ([facility]) Morbid obesity with BMI of 40.0-44.9, adult ([facility]) Opioid use Chronic, continuous use of opioids Chronic back pain greater than 3 months duration Urge incontinence- Primary Morbid obesity with BMI of 40.0-44.9, adult ([facility]) 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 Stage 3a chronic kidney disease (HCC) ([facility]) Chronic respiratory failure with hypoxia ([facility]) Chronic obstructive pulmonary disease with acute lower respiratory infection ([facility])- Primary Primary HSV infection of mouth Pulmonary emphysema, unspecified emphysema type ([facility])- Primary Flu-like symptoms- Primary Morbid (severe) obesity due to excess calories ([facility]) Body mass index (BMI) 40.0-44.9, adult ([facility]) Pulmonary emphysema, unspecified emphysema type ([facility]) Chronic respiratory failure with hypoxia ([facility]) Essential hypertension ([facility]) Unspecified essential hypertension documented in this encounter [facility] HealthcareEvaluation note* Diagnosis Moderate episode of recurrent major depressive disorder ([facility]/HCC)- Primary Moderate persistent asthma with exacerbation ([facility]) Unspecified asthma, with exacerbation Medicare annual wellness visit, subsequent Severe persistent asthma with acute exacerbation ([facility])- Primary Hospital discharge follow-up Other follow-up examination Severe persistent asthma without complication ([facility]/HCC)- Primary Essential hypertension ([facility]/HCC) Unspecified essential hypertension JEANNE (acute kidney injury) ([facility]) Leukocytosis, unspecified type Chronic respiratory failure with hypoxia ([facility]/HCC) Chronic bilateral low back pain without sciatica- Primary Vitamin D deficiency Chronic bilateral low back pain without sciatica- Primary Pneumonia due to infectious organism, unspecified laterality, unspecified part of lung- Primary Screening mammogram for breast cancer Chronic respiratory failure with hypoxia (CMS/HCC) Pulmonary emphysema, unspecified emphysema type (CMS/HCC) Essential hypertension ([facility]/HCC) Unspecified essential hypertension Morbid obesity with BMI of 40.0-44.9, adult ([facility]/HCC) Hospital discharge follow-up- Primary Other follow-up examination Chronic respiratory failure with hypoxia (CMS/HCC) Severe persistent asthma without complication (CMS/HCC) Severe persistent asthma with acute exacerbation (CMS/HCC)- Primary Hospital discharge follow-up- Primary Other follow-up examination Chronic respiratory failure with hypoxia (CMS/HCC)- Primary Hospital discharge follow-up Other follow-up examination Benign essential HTN ([facility]/HCC) Chronic heart failure with preserved ejection fraction (CMS/HCC) Severe persistent asthma without complication (CMS/HCC) Moderate mixed hyperlipidemia not requiring statin therapy (CMS/HCC) Morbid obesity with BMI of 40.0-44.9, adult ([facility]) Opioid use Chronic, continuous use of opioids Chronic back pain greater than 3 months duration Urge incontinence- Primary Morbid obesity with BMI of 40.0-44.9, adult ([facility]) 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 Stage 3a chronic kidney disease (HCC) ([facility]) Chronic respiratory failure with hypoxia ([facility]) Chronic obstructive pulmonary disease with acute lower respiratory infection ([facility])- Primary Primary HSV infection of mouth Pulmonary emphysema, unspecified emphysema type ([facility]/HCC)- Primary Flu-like symptoms- Primary Morbid (severe) obesity due to excess calories ([facility]) Body mass index (BMI) 40.0-44.9, adult ([facility]) Pulmonary emphysema, unspecified emphysema type ([facility]/HCC) Chronic respiratory failure with hypoxia (CMS/HCC) Essential hypertension ([facility]/HCC) Unspecified essential hypertension Pneumonia due to infectious organism, unspecified laterality, unspecified part of lung- Primary documented in this encounter [facility] HealthcareEvaluation note* Diagnosis Moderate episode of recurrent major depressive disorder ([facility]/HCC)- Primary Moderate persistent asthma with exacerbation (CMS/HCC) Unspecified asthma, with exacerbation Medicare annual wellness visit, subsequent Severe persistent asthma with acute exacerbation ([facility]/HCC)- Primary Hospital discharge follow-up Other follow-up [...] disorder (CMS/HCC) documented in this encounter [facility] HealthcareEvaluation note* Diagnosis Moderate episode of recurrent major depressive disorder ([facility])- Primary Moderate persistent asthma with exacerbation ([facility]) Unspecified asthma, with exacerbation Medicare annual wellness visit, subsequent Severe persistent asthma with acute exacerbation ([facility])- Primary Hospital discharge follow-up Other follow-up examination Severe persistent asthma without complication ([facility]/HCC)- Primary Essential hypertension ([facility]) Unspecified essential hypertension JEANNE (acute kidney injury) ([facility]) Leukocytosis, unspecified type Chronic respiratory failure with hypoxia ([facility]) Chronic bilateral low back pain without sciatica- Primary Vitamin D deficiency Chronic bilateral low back pain without sciatica- Primary Pneumonia due to infectious organism, unspecified laterality, unspecified part of lung- Primary Screening mammogram for breast cancer Chronic respiratory failure with hypoxia ([facility]) Pulmonary emphysema, unspecified emphysema type ([facility]) Essential hypertension ([facility]) Unspecified essential hypertension Morbid obesity with BMI of 40.0-44.9, adult ([facility]) Hospital discharge follow-up- Primary Other follow-up examination Chronic respiratory failure with hypoxia ([facility]) Severe persistent asthma without complication ([facility]) Chronic respiratory failure with hypoxia ([facility])- Primary Hospital discharge follow-up Other follow-up examination Benign essential HTN ([facility]) Chronic heart failure with preserved ejection fraction ([facility]) Severe persistent asthma without complication ([facility] Moderate mixed hyperlipidemia not requiring statin therapy ([facility]) Morbid obesity with BMI of 40.0-44.9, adult ([facility]) Opioid use Chronic, continuous use of opioids Chronic back pain greater than 3 months duration Urge incontinence- Primary Morbid obesity with BMI of 40.0-44.9, adult ([facility]) 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 Stage 3a chronic kidney disease (HCC) ([facility]) Chronic respiratory failure with hypoxia ([facility]) Chronic obstructive pulmonary disease with acute lower respiratory infection ([facility])- Primary Primary HSV infection of mouth Pulmonary emphysema, unspecified emphysema type ([facility])- Primary Flu-like symptoms- Primary Morbid (severe) obesity due to excess calories ([facility]) Body mass index (BMI) 40.0-44.9, adult ([facility]) Pulmonary emphysema, unspecified emphysema type ([facility]/HCC) Chronic respiratory failure with hypoxia ([facility]/HCC) Essential hypertension ([facility]) Unspecified essential hypertension Pneumonia due [...] syndrome ([facility]) Candidiasis documented in this encounter [facility] HealthcareEvaluation note* Diagnosis Moderate episode of recurrent major depressive disorder (CMS/HCC)- Primary Moderate persistent asthma with exacerbation (CMS/HCC) Unspecified asthma, with exacerbation Medicare annual wellness visit, subsequent Severe persistent asthma with acute exacerbation ([facility])- Primary Hospital discharge follow-up Other [...] Morbid obesity with BMI of 40.0-44.9, adult ([facility]) Hospital discharge follow-up- Primary Other follow-up examination Chronic respiratory failure with hypoxia (CMS/HCC) Severe persistent asthma without complication (CMS/HCC) Chronic respiratory failure with hypoxia (CMS/HCC)- Primary Hospital discharge follow-up Other follow-up examination Benign essential HTN (CMS/HCC) Chronic heart failure with preserved ejection fraction (CMS/HCC) Severe persistent asthma without complication ([facility]) Moderate mixed hyperlipidemia not requiring statin therapy ([facility]) Morbid obesity with BMI of 40.0-44.9, adult ([facility]) Opioid use Chronic, continuous use of opioids Chronic back pain greater than 3 months duration Urge incontinence- Primary Morbid obesity with BMI of 40.0-44.9, adult ([facility]) 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 Stage 3a chronic kidney disease (HCC) ([facility]) Chronic respiratory failure with hypoxia ([facility]) Chronic obstructive pulmonary disease with acute lower respiratory infection ([facility])- Primary Primary HSV infection of mouth Pulmonary emphysema, unspecified emphysema type ([facility])- Primary Flu-like symptoms- Primary Morbid (severe) obesity due to excess calories ([facility]) Body mass index (BMI) 40.0-44.9, adult ([facility]) Pulmonary emphysema, unspecified emphysema type ([facility]) Chronic respiratory failure with hypoxia ([facility]) Essential hypertension ([facility]) Unspecified essential hypertension Pneumonia due to infectious organism, unspecified laterality, unspecified part of lung- Primary Pneumonia due to infectious organism, unspecified laterality, unspecified part of lung- Primary Chronic respiratory failure with hypoxia ([facility]) Severe persistent asthma, uncomplicated ([facility]) Chronic heart failure with preserved ejection fraction ([facility]) Essential hypertension ([facility]) Unspecified essential hypertension Other secondary pulmonary hypertension Chronic kidney disease, stage 3a (HCC) ([facility]) Morbid (severe) obesity due to excess calories ([facility]) Screening mammogram for breast cancer Moderate episode of recurrent major depressive disorder ([facility]) Edema of both lower extremities- Primary Spinal stenosis, lumbar region without neurogenic claudication Chronic heart failure with preserved ejection fraction ([facility]) Chronic respiratory failure with hypoxia ([facility]) Severe persistent asthma, uncomplicated ([facility]) Gastroesophageal reflux disease, unspecified whether esophagitis present Morbid (severe) obesity due to excess calories ([facility]) RLS (restless legs syndrome) Restless legs syndrome (RLS) Candidiasis Gastroesophageal reflux disease without esophagitis Esophageal reflux documented in this encounter [facility] HealthcareEvaluation note* Diagnosis Moderate episode of recurrent major depressive disorder ([facility])- Primary Moderate persistent asthma with exacerbation ([facility]) Unspecified asthma, with exacerbation Medicare [...] Morbid obesity with BMI of 40.0-44.9, adult ([facility]) Hospital discharge follow-up- Primary Other follow-up examination Chronic respiratory failure with hypoxia (CMS/HCC) Severe persistent asthma without complication (CMS/HCC) Chronic respiratory failure with hypoxia ([facility]/HCC)- Primary Hospital discharge follow-up Other follow-up examination Benign essential HTN ([facility]/HCC) Chronic heart failure with preserved ejection fraction (CMS/HCC) Severe persistent asthma without complication (CMS/HCC) Moderate mixed hyperlipidemia not requiring statin therapy (CMS/HCC) Morbid obesity with BMI of 40.0-44.9, adult ([facility]) Opioid use Chronic, continuous use of opioids Chronic back pain greater than 3 months duration Urge incontinence- Primary Morbid obesity with BMI of 40.0-44.9, adult ([facility]) 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 Stage 3a chronic kidney disease (HCC) ([facility]) Chronic respiratory failure with hypoxia ([facility]) Chronic obstructive pulmonary disease with acute lower respiratory infection ([facility])- Primary Primary HSV infection of mouth Pulmonary emphysema, unspecified emphysema type (CMS/HCC)- Primary Flu-like symptoms- Primary Morbid (severe) obesity due to excess calories ([facility]) Body mass index (BMI) 40.0-44.9, adult ([facility]) Pulmonary emphysema, unspecified emphysema type [...] Morbid (severe) obesity due to excess calories ([facility]/HCC) Restless leg syndrome Restless legs syndrome (RLS) documented in this encounter [facility] HealthcareEvaluation note* Diagnosis Moderate episode of [...] Morbid obesity with BMI of 40.0-44.9, adult ([facility]) Hospital discharge follow-up- Primary Other [...] Morbid obesity with BMI of 40.0-44.9, adult ([facility] Opioid use Chronic, continuous use of opioids Chronic back pain greater than 3 months duration Urge incontinence- Primary Morbid obesity with BMI of 40.0-44.9, adult ([facility] 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 Stage 3a chronic kidney disease ([facility]) Chronic respiratory failure with hypoxia ([facility]) Chronic obstructive pulmonary disease with acute lower respiratory infection (HCC)- Primary Primary HSV infection of mouth Pulmonary emphysema, unspecified emphysema type ([facility])- Primary Flu-like symptoms- Primary Morbid (severe) obesity due to excess calories ([facility]) Body mass index (BMI) 40.0-44.9, adult ([facility]) Pulmonary emphysema, unspecified emphysema type ([facility]) Chronic respiratory failure with hypoxia ([facility]) Essential hypertension Unspecified essential hypertension Pneumonia due to infectious organism, unspecified laterality, unspecified part of lung- Primary Pneumonia due to infectious organism, unspecified laterality, unspecified part of lung- Primary Chronic respiratory failure with hypoxia ([facility]) Severe persistent asthma, uncomplicated (HCC) Chronic heart failure with preserved ejection fraction (HCC) Essential hypertension Unspecified essential hypertension Other secondary pulmonary hypertension ([facility]) Chronic kidney disease, stage 3a ([facility]) Morbid (severe) obesity due to excess calories ([facility]) Screening mammogram for breast cancer Moderate episode of recurrent major depressive disorder ([facility]) Edema of both lower extremities- Primary Spinal stenosis, lumbar region without neurogenic claudication Chronic heart failure with preserved ejection fraction (HCC) Chronic respiratory failure with hypoxia (HCC) Severe persistent asthma, uncomplicated ([facility]) Gastroesophageal reflux disease, unspecified whether esophagitis present Morbid (severe) obesity due to excess calories ([facility]) RLS (restless legs syndrome) Restless legs syndrome (RLS) Candidiasis Moderate episode of recurrent major depressive disorder (HCC)- Primary Pulmonary emphysema, unspecified emphysema type (HCC) Chronic respiratory failure with hypoxia (HCC) Morbid (severe) obesity due to excess calories ([facility]) Restless leg syndrome Restless legs syndrome (RLS) Moderate episode of recurrent major depressive disorder (HCC)- Primary documented in this encounter [facility] HealthcareEvaluation note* Diagnosis Moderate episode of recurrent [...] Morbid obesity with BMI of 40.0-44.9, adult ([facility]) Hospital discharge follow-up- Primary Other follow-up examination Chronic respiratory failure with hypoxia (HCC) Severe persistent asthma without complication (HCC) Chronic respiratory failure with hypoxia (HCC)- Primary Hospital discharge follow-up Other follow-up examination Benign essential HTN Chronic heart failure with preserved ejection fraction (HCC) Severe persistent asthma without complication (HCC) Moderate mixed hyperlipidemia not requiring statin therapy Morbid obesity with BMI of 40.0-44.9, adult ([facility]) Opioid use Chronic, continuous use of opioids Chronic back pain greater than 3 months duration Urge incontinence- Primary Morbid obesity with BMI of 40.0-44.9, adult ([facility]) 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 Stage 3a chronic kidney disease ([facility]) Chronic respiratory failure with hypoxia ([facility]) Chronic obstructive pulmonary disease with acute lower respiratory infection (HCC)- Primary Primary HSV infection of mouth Pulmonary emphysema, unspecified emphysema type (HCC)- Primary Flu-like symptoms- Primary Morbid (severe) obesity due to excess calories ([facility]) Body mass index (BMI) 40.0-44.9, adult ([facility]) Pulmonary emphysema, unspecified emphysema type (HCC) Chronic [...] hypertension (HCC) Chronic kidney disease, stage 3a ([facility]) Morbid (severe) obesity due to excess calories ([facility]) Screening mammogram for breast cancer Moderate episode of recurrent major depressive disorder (HCC) Edema of both lower extremities- Primary Spinal stenosis, lumbar region without neurogenic claudication Chronic heart failure with preserved ejection fraction (HCC) Chronic respiratory failure with hypoxia (HCC) Severe persistent asthma, uncomplicated (HCC) Gastroesophageal reflux disease, unspecified whether esophagitis present Morbid (severe) obesity due to excess calories ([facility]) RLS (restless legs syndrome) Restless legs syndrome (RLS) Candidiasis Moderate episode of recurrent major depressive disorder (HCC)- Primary Pulmonary emphysema, unspecified emphysema type (HCC) Chronic respiratory failure with hypoxia (HCC) Morbid (severe) obesity due to excess calories ([facility]) Restless leg syndrome Restless legs syndrome (RLS) Chronic bilateral low back pain without sciatica documented in this encounter [facility] HealthcareEvaluation note* Diagnosis Moderate episode of [...] Morbid obesity with BMI of 40.0-44.9, adult ([facility]) Hospital discharge follow-up- Primary Other follow-up examination Chronic respiratory failure with hypoxia (HCC) Severe persistent asthma without complication (HCC) Chronic respiratory failure with hypoxia (HCC)- Primary Hospital discharge follow-up Other follow-up examination Benign essential HTN Chronic heart failure with preserved ejection fraction (HCC) Severe persistent asthma without complication (HCC) Moderate mixed hyperlipidemia not requiring statin therapy Morbid obesity with BMI of 40.0-44.9, adult ([facility]) Opioid use Chronic, continuous use of opioids Chronic back pain greater than 3 months duration Urge incontinence- Primary Morbid obesity with BMI of 40.0-44.9, adult ([facility]) 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 Stage 3a chronic kidney disease ([facility]) Chronic respiratory failure with hypoxia (HCC) Chronic obstructive pulmonary disease with acute lower respiratory infection (HCC)- Primary Primary HSV infection of mouth Pulmonary emphysema, unspecified emphysema type (HCC)- Primary Flu-like symptoms- Primary Morbid (severe) obesity due to excess calories ([facility]) Body mass index (BMI) 40.0-44.9, adult ([facility]) Pulmonary emphysema, unspecified emphysema type [...] hypertension (HCC) Chronic kidney disease, stage 3a ([facility]) Morbid (severe) obesity due to excess calories ([facility]) Screening mammogram for breast cancer Moderate episode of recurrent major depressive disorder ([facility]) Edema of both lower extremities- Primary Spinal stenosis, lumbar region without neurogenic claudication Chronic heart failure with preserved ejection fraction (HCC) Chronic respiratory failure with hypoxia (HCC) Severe persistent asthma, uncomplicated (HCC) Gastroesophageal reflux disease, unspecified whether esophagitis present Morbid (severe) obesity due to excess calories ([facility]) RLS (restless legs syndrome) Restless legs syndrome (RLS) Candidiasis Moderate episode of recurrent major depressive disorder (HCC)- Primary Pulmonary emphysema, unspecified emphysema type (HCC) Chronic respiratory failure with hypoxia (HCC) Morbid (severe) obesity due to excess calories ([facility]) Restless leg syndrome Restless legs syndrome (RLS) Restless leg syndrome Restless legs syndrome (RLS) documented in this encounter [facility] HealthcareEvaluation note* Diagnosis Moderate episode of [...] Morbid obesity with BMI of 40.0-44.9, adult ([facility]) Hospital discharge follow-up- Primary Other follow-up examination Chronic respiratory failure with hypoxia (HCC) Severe persistent asthma without complication (HCC) Chronic respiratory failure with hypoxia (HCC)- Primary Hospital discharge follow-up Other follow-up examination Benign essential HTN Chronic heart failure with preserved ejection fraction (HCC) Severe persistent asthma without complication (HCC) Moderate mixed hyperlipidemia not requiring statin therapy Morbid obesity with BMI of 40.0-44.9, adult ([facility]) Opioid use Chronic, continuous use of opioids Chronic back pain greater than 3 months duration Urge incontinence- Primary Morbid obesity with BMI of 40.0-44.9, adult ([facility]) 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 Stage 3a chronic kidney disease ([facility]) Chronic respiratory failure with hypoxia ([facility]) Chronic obstructive pulmonary disease with acute lower respiratory infection ([facility])- Primary Primary HSV infection of mouth Pulmonary emphysema, unspecified emphysema type ([facility])- Primary Flu-like symptoms- Primary Morbid (severe) obesity due to excess calories ([facility]) Body mass index (BMI) 40.0-44.9, adult ([facility]) Pulmonary emphysema, unspecified emphysema type ([facility]) Chronic respiratory failure with hypoxia [...] hypertension (HCC) Chronic kidney disease, stage 3a ([facility]) Morbid (severe) obesity due to excess calories ([facility]) Screening mammogram for breast cancer Moderate episode of recurrent major depressive disorder (HCC) Edema of both lower extremities- Primary Spinal stenosis, lumbar region without neurogenic claudication Chronic heart failure with preserved ejection fraction (HCC) Chronic respiratory failure with hypoxia (HCC) Severe persistent asthma, uncomplicated (HCC) Gastroesophageal reflux disease, unspecified whether esophagitis present Morbid (severe) obesity due to excess calories ([facility]) RLS (restless legs syndrome) Restless legs syndrome (RLS) Candidiasis Moderate episode of recurrent major depressive disorder (HCC)- Primary Pulmonary emphysema, unspecified emphysema type (HCC) Chronic respiratory failure with hypoxia (HCC) Morbid (severe) obesity due to excess calories ([facility]) Restless leg syndrome Restless legs syndrome (RLS) Chronic heart failure with preserved ejection fraction (HCC)- Primary Edema of both lower extremities documented in this encounter [facility] HealthcareEvaluation note* Diagnosis Moderate episode of [...] Morbid obesity with BMI of 40.0-44.9, adult ([facility]) Hospital discharge follow-up- Primary Other follow-up examination Chronic respiratory failure with hypoxia (HCC) Severe persistent asthma without complication (HCC) Chronic respiratory failure with hypoxia (HCC)- Primary Hospital discharge follow-up Other follow-up examination Benign essential HTN Chronic heart failure with preserved ejection fraction (HCC) Severe persistent asthma without complication (HCC) Moderate mixed hyperlipidemia not requiring statin therapy Morbid obesity with BMI of 40.0-44.9, adult ([facility]) Opioid use Chronic, continuous use of opioids Chronic back pain greater than 3 months duration Urge incontinence- Primary Morbid obesity with BMI of 40.0-44.9, adult ([facility]) 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 Stage 3a chronic kidney disease ([facility]) Chronic respiratory failure with hypoxia (HCC) Chronic obstructive pulmonary disease with acute lower respiratory infection (HCC)- Primary Primary HSV infection of mouth Pulmonary emphysema, unspecified emphysema type (HCC)- Primary Flu-like symptoms- Primary Morbid (severe) obesity due to excess calories ([facility]) Body mass index (BMI) 40.0-44.9, adult ([facility]) Pulmonary emphysema, unspecified emphysema type (HCC) Chronic [...] hypertension (HCC) Chronic kidney disease, stage 3a ([facility]) Morbid (severe) obesity due to excess calories ([facility]) Screening mammogram for breast cancer Moderate episode of recurrent major depressive disorder ([facility]) Edema of both lower extremities- Primary Spinal stenosis, lumbar region without neurogenic claudication Chronic heart failure with preserved ejection fraction (HCC) Chronic respiratory failure with hypoxia (HCC) Severe persistent asthma, uncomplicated (HCC) Gastroesophageal reflux disease, unspecified whether esophagitis present Morbid (severe) obesity due to excess calories ([facility]) RLS (restless legs syndrome) Restless legs syndrome (RLS) Candidiasis Moderate episode of recurrent major depressive disorder (HCC)- Primary Pulmonary emphysema, unspecified emphysema type (HCC) Chronic respiratory failure with hypoxia (HCC) Morbid (severe) obesity due to excess calories ([facility]) Restless leg syndrome Restless legs syndrome (RLS) Moderate episode of recurrent major depressive disorder (HCC)- Primary Morbid (severe) obesity due to excess calories ([facility]) Candidiasis of breast Skin pustule Unspecified local infection of skin and subcutaneous tissue RLS (restless legs syndrome) Restless legs syndrome (RLS) documented in this encounter [facility] HealthcareEvaluation note* Diagnosis Moderate episode of [...] Morbid obesity with BMI of 40.0-44.9, adult ([facility]) Hospital discharge follow-up- Primary Other follow-up examination Chronic respiratory failure with hypoxia (HCC) Severe persistent asthma without complication (HCC) Chronic respiratory failure with hypoxia (HCC)- Primary Hospital discharge follow-up Other follow-up examination Benign essential HTN Chronic heart failure with preserved ejection fraction (HCC) Severe persistent asthma without complication (HCC) Moderate mixed hyperlipidemia not requiring statin therapy Morbid obesity with BMI of 40.0-44.9, adult ([facility]) Opioid use Chronic, continuous use of opioids Chronic back pain greater than 3 months duration Urge incontinence- Primary Morbid obesity with BMI of 40.0-44.9, adult ([facility]) 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 Stage 3a chronic kidney disease ([facility]) Chronic respiratory failure with hypoxia ([facility]) Chronic obstructive pulmonary disease with acute lower respiratory infection ([facility])- Primary Primary HSV infection of mouth Pulmonary emphysema, unspecified emphysema type ([facility])- Primary Flu-like symptoms- Primary Morbid (severe) obesity due to excess calories ([facility]) Body mass index (BMI) 40.0-44.9, adult ([facility]) Pulmonary emphysema, unspecified emphysema type ([facility]) Chronic respiratory failure with hypoxia [...] hypertension (HCC) Chronic kidney disease, stage 3a ([facility]) Morbid (severe) obesity due to excess calories ([facility]) Screening mammogram for breast cancer Moderate episode of recurrent major depressive disorder ([facility]) Edema of both lower extremities- Primary Spinal stenosis, lumbar region without neurogenic claudication Chronic heart failure with preserved ejection fraction (HCC) Chronic respiratory failure with hypoxia (HCC) Severe persistent asthma, uncomplicated (HCC) Gastroesophageal reflux disease, unspecified whether esophagitis present Morbid (severe) obesity due to excess calories ([facility]) RLS (restless legs syndrome) Restless legs syndrome (RLS) Candidiasis Moderate episode of recurrent major depressive disorder (HCC)- Primary Pulmonary emphysema, unspecified emphysema type (HCC) Chronic respiratory failure with hypoxia (HCC) Morbid (severe) obesity due to excess calories ([facility]) Restless leg syndrome Restless legs syndrome (RLS) Moderate episode of recurrent major depressive disorder (HCC)- Primary Morbid (severe) obesity due to excess calories ([facility]) Candidiasis of breast Skin pustule Unspecified local infection of skin and subcutaneous tissue RLS (restless legs syndrome) Restless legs syndrome (RLS) Skin pustule Unspecified local infection of skin and subcutaneous tissue documented in this encounter [facility] HealthcareEvaluation note* Diagnosis Moderate episode of [...] Morbid obesity with BMI of 40.0-44.9, adult ([facility]) Hospital discharge follow-up- Primary Other follow-up examination Chronic respiratory failure with hypoxia (HCC) Severe persistent asthma without complication (HCC) Chronic respiratory failure with hypoxia (HCC)- Primary Hospital discharge follow-up Other follow-up examination Benign essential HTN Chronic heart failure with preserved ejection fraction (HCC) Severe persistent asthma without complication (HCC) Moderate mixed hyperlipidemia not requiring statin therapy Morbid obesity with BMI of 40.0-44.9, adult ([facility]) Opioid use Chronic, continuous use of opioids Chronic back pain greater than 3 months duration Urge incontinence- Primary Morbid obesity with BMI of 40.0-44.9, adult ([facility]) 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 Stage 3a chronic kidney disease ([facility]) Chronic respiratory failure with hypoxia (HCC) Chronic obstructive pulmonary disease with acute lower respiratory infection (HCC)- Primary Primary HSV infection of mouth Pulmonary emphysema, unspecified emphysema type (HCC)- Primary Flu-like symptoms- Primary Morbid (severe) obesity due to excess calories ([facility]) Body mass index (BMI) 40.0-44.9, adult ([facility]) Pulmonary emphysema, unspecified emphysema type (HCC) Chronic [...] hypertension (HCC) Chronic kidney disease, stage 3a ([facility]) Morbid (severe) obesity due to excess calories ([facility]) Screening mammogram for breast cancer Moderate episode of recurrent major depressive disorder (HCC) Edema of both lower extremities- Primary Spinal stenosis, lumbar region without neurogenic claudication Chronic heart failure with preserved ejection fraction (HCC) Chronic respiratory failure with hypoxia (HCC) Severe persistent asthma, uncomplicated (HCC) Gastroesophageal reflux disease, unspecified whether esophagitis present Morbid (severe) obesity due to excess calories ([facility]) RLS (restless legs syndrome) Restless legs syndrome (RLS) Candidiasis Moderate episode of recurrent major depressive disorder (HCC)- Primary Pulmonary emphysema, unspecified emphysema type (HCC) Chronic respiratory failure with hypoxia (HCC) Morbid (severe) obesity due to excess calories ([facility]) Restless leg syndrome Restless legs syndrome (RLS) Moderate episode of recurrent major depressive disorder (HCC)- Primary Morbid (severe) obesity due to excess calories ([facility]) Candidiasis of breast Skin pustule Unspecified local infection of skin and subcutaneous tissue RLS (restless legs syndrome) Restless legs syndrome (RLS) Moderate episode of recurrent major depressive disorder (HCC) documented in this encounter [facility] HealthcareEvaluation note* Diagnosis Moderate episode of [...] Morbid obesity with BMI of 40.0-44.9, adult ([facility]) Hospital discharge follow-up- Primary Other follow-up examination Chronic respiratory failure with hypoxia (HCC) Severe persistent asthma without complication (HCC) Chronic respiratory failure with hypoxia (HCC)- Primary Hospital discharge follow-up Other follow-up examination Benign essential HTN Chronic heart failure with preserved ejection fraction (HCC) Severe persistent asthma without complication (HCC) Moderate mixed hyperlipidemia not requiring statin therapy Morbid obesity with BMI of 40.0-44.9, adult ([facility]) Opioid use Chronic, continuous use of opioids Chronic back pain greater than 3 months duration Urge incontinence- Primary Morbid obesity with BMI of 40.0-44.9, adult ([facility]) 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 Stage 3a chronic kidney disease ([facility]) Chronic respiratory failure with hypoxia ([facility]) Chronic obstructive pulmonary disease with acute lower respiratory infection ([facility])- Primary Primary HSV infection of mouth Pulmonary emphysema, unspecified emphysema type ([facility])- Primary Flu-like symptoms- Primary Morbid (severe) obesity due to excess calories ([facility]) Body mass index (BMI) 40.0-44.9, adult ([facility]) Pulmonary emphysema, unspecified emphysema type ([facility]) Chronic respiratory failure with hypoxia [...] hypertension (HCC) Chronic kidney disease, stage 3a ([facility]) Morbid (severe) obesity due to excess calories ([facility]) Screening mammogram for breast cancer Moderate episode of recurrent major depressive disorder ([facility]) Edema of both lower extremities- Primary Spinal stenosis, lumbar region without neurogenic claudication Chronic heart failure with preserved ejection fraction (HCC) Chronic respiratory failure with hypoxia (HCC) Severe persistent asthma, uncomplicated (HCC) Gastroesophageal reflux disease, unspecified whether esophagitis present Morbid (severe) obesity due to excess calories ([facility]) RLS (restless legs syndrome) Restless legs syndrome [...] 8:49amMorbid obesity due to excess caloriesacuteSept2024 8:49am [facility] Work Phone: History general Narrative - Reported* Type Description Date Medical History Colon Cancer 2004 Medical HistoryCOPDMedical HistoryMRSA IN LEFT HIPMedical HistoryMORBID OBESITY DUE TO EXCESS CALORIESMedical HistoryRESPIRATORY FAILUREMedical HistoryACUTE POSTHEMORRHAGIC ANEMIAMedical 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 HistoryHYPER LIPIDEMIAMedical HistoryMAJOR DEPRESSIVE DISORDERMedical HistoryGERDMedical HistoryMUSCLE SPASMMedical HistoryUNSPECIFIED ASTHMAMedical HistoryDYSPNEASurgical Historyback [id number] History back [id number] Historytubal cculhodl1039Wmdixesv Historytubal jbhcshvm6261 Surgical Historyfoot sx111/2014Surgical Historyleft total hip arthoplasty07/2016 Surgical History(R) TKA - DR SERRATO10/18/2018Surgical History1 INCH OF BONE OFF OF RIGHT [id number] HistoryLEFT HIP RESVISION03/2020Hospitalization Historysee worif2082,1987Hospitalization History1 week during rinbt4843 Hospitalization HistoryISSUE WITH HIP COMING OUT AND NEEDING TO PUT IT BACK IN 08/2019Hospitalization HistoryHIP REVISION03/2020 [facility] [place] Other History general Narrative - Reported* Type Description Date Medical History Colon Cancer 2004 Medical HistoryCOPDMedical HistoryMRSA IN LEFT HIPMedical HistoryMORBID OBESITY DUE TO EXCESS CALORIESMedical HistoryRESPIRATORY FAILUREMedical HistoryACUTE POSTHEMORRHAGIC ANEMIAMedical 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 HistoryHYPER LIPIDEMIAMedical HistoryMAJOR DEPRESSIVE DISORDERMedical HistoryGERDMedical HistoryMUSCLE SPASMMedical HistoryUNSPECIFIED ASTHMAMedical HistoryDYSPNEAMedical HistoryCOVID 04/2023Surgical Historyback [id number] Historyback [id number] Historytubal bamdexsl1009Eupwmbib Historytubal uzdxgpco0212Sxhupuyw Historyfoot sx1/2014Surgical Historyleft total hip arthoplasty07/2016Surgical History(R) TKA - DR SERRATO10/18/2018 Surgical History1 INCH OF BONE OFF OF RIGHT [id number] HistoryLEFT HIP RESVISION03/2020Hospitalization Historysee [id number],1986Hospitalization History1 week during whuel6282Lxrgazxcupbtwxy HistoryISSUE WITH HIP COMING OUT AND NEEDING TO PUT IT BACK IN08/2019Hospitalization HistoryHIP REVISION03/2020 Hospitalization HistoryCOVID X 2 WEEKS04/2023 [facility] [place] Other Hospital course Narrative No data available for this section [facility] Hospital Discharge instructions Additional Instructions DISCHARGE [...] if you have any problems. -Office number [phone] Work Phone: Hospital Discharge instructions No data available for this section [facility] Hospital Discharge instructionsAmbulatory Orders* Referral to Pulmonology Time Frame: 07/17/25, Location: None [facility] Work Phone: Progress note No data available for this section [facility] reason for referral (narrative)No reason for referral information availableTrihealth M[facility] Work Phone: Advance Directives Advance [...] 18, 2025 8:39am Encounter for subsequent [facility] wellness visit (AWV) in Medicare patient [...] drug abuse patient.[facility]In the event this information is protected by the Federal Confidentiality of Alcohol and Drug Abuse Patient Records regulations: The Federal rules restrict any use of the information to criminally investigate or prosecute any alcohol or drug abuse patient.[facility]ullIn the event this information is protected by the Federal Confidentiality of Alcohol and Drug Abuse Patient Records regulations: The Federal rules restrict any use of the information to criminally investigate or prosecute any alcohol or drug abuse patient.[facility]ullIn the event this information is protected by the Federal Confidentiality of Alcohol and Drug Abuse Patient Records regulations: The Federal rules restrict any use of the information to criminally investigate or prosecute any alcohol or drug abuse patient.[facility] INFORMATION SOURCE (unrecogn ized section and content) DATE CREATED AUTHOR 03/03/2022 [facility] DATE CREATED AUTHOR AUTHOR'S ORGANIZ ATION 04/17/2023 [facility] DATE CREATED AUTHOR AUTHOR'S ORGANIZ ATION 10/20/2024 [facility] DATE CREATED AUTHOR AUTHOR'S ORGANIZ ATION 11/18/2024 [facility] DATE CREATED AUTHOR AUTHOR'S ORGANIZ ATION 01/25/2025 [facility] DATE CREATED AUTHOR AUTHOR'S ORGANIZ ATION 03/26/2025 [facility] DATE CREATED AUTHOR AUTHOR'S ORGANIZ ATION 06/20/2025 [facility] DATE CREATED AUTHOR AUTHOR'S ORGANIZ ATION 07/19/2025 [facility] DATE CREATED AUTHOR AUTHOR'S ORGANIZ ATION 07/23/2025 [facility] REASON FOR VISIT (unrecogniz ed section and content) ReasonOnset DateCommentsMedication Rzyamuti30/07/2024Med Uiwmio694Reason Onset DateCommentsMed Ehione904ReasonCommentsMed RefillReasonComments Follow-upShe presents today for a 3 month follow up for her asthma.Reason CommentsSuspicious Skin LesionSpecialtyDiagnoses / ProceduresReferred By Contact Referred To ContactDermatology Diagnoses 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 Pt does do chair exercises four times a week and walks (with walker) but due to her health conditions she is limited. Pt is in a wheelchair with very limited ambulation -SCRReasonOnset DateCommentsMed Fgtqwb3307/17/2024 ReasonCommentsCoughNauseaReasonCommentsHospital Clrzsw-ukWtlvsnYpbqnterGunjom-vg Suspicious Skin LesionReasonCommentsSkin CheckReasonOnset DateCommentsMed Refill 02/26/2025ReasonOnset DateCommentsMed Wuixwi2004/29/2025ReasonCommentsCOPDReason CommentsSkin CheckSuspicious Skin Lesion Care Teams (unrecognized [...] Date Tapan Zazueta MD [address] [place] [address] PCP - GeneralFamily Medicine06/10/24 Ariella Mathis DO [address] [place] [address] Referring PhysicianNeurolog01/02/24 Aida Reese NP [address] [place] [address] Nurse PractitionerFamily Medicine06/10/24Team MemberRelationshipSpecialtyStart DateEnd Date Tapan Zazueta MD [address] [place] [address] PCP - GeneralFamily Medicine06/10/24 Ariella Mathis DO [address] [place] [address] Referring PhysicianNeurology2 Aida Reese NP [address] [place] [address] [facility] Medicine06/10/24Team MemberRelationshipSpecialtyStart DateEnd Date Tapan Zazueta MD [address] [place] [address] PCP - Generalmily Medicine06/10/24 Ariella Mathis DO [address] [place] [address] Referring PhysicianNeurology2 Aida Reese NP [address] [place] [address] [facility] Medicine06/10/24Team MemberRelationshipSpecialtyStart DateEnd Date Tapan Zazueta MD [address] [place] [address] PCP - GeneralFamily Medicine06/10/24 Ariella Mathis DO [address] [place] [address] Referring PhysicianNeurology2 Aida Reese NP [address] [place] [address] [facility] Medicine06/10/24Team MemberRelationshipSpecialtyStart DateEnd Date Tapan Zazueta MD [address] [place] [address] PCP - [facility]Ber[facility] Medicine06/10/24 Ariella Mathis DO [address] [place] [address] Referring PhysicianNeurolog01/02/24 Aida Reese NP [address] [place] [address] [facility]06/10/24 Team Status: Active Member Role Status Dates Aida Reese VALIDATION LEADER-C Primary Care Provider Ac tive Team Status: Active Member Role Status Dates Aida Reese VALIDATION LEADER-C Primary Care Provider Ac tive Start: June 29, 2024 Yunior Stock DOAttkarla ProviderActiveStart: June 29, 2024 Team Status: Active Member Role Status Dates Aida Reese VALIDATION LEADER-C Primary Care Provider Ac tive Start: August 08, 2024 End: August 12olivier Stock DOAttending ProviderActiveStart: August 08, 2024 End: August 12, 2024Bryant Lora ProviderActiveStart: August 08, 2024 End: August 12, 2024 Team Status: Inactive Member Role Status Dates Allan Lacey MD Attending Provider Active Start: September 05, 2024 End: September 05chase Reese NP-[facility] ProviderActive Start: September 05, 2024 End: September 05, 2024Team MemberRelationshipSpecialtyStart DateEnd Date Tapan Zazueta MD [address] [place] [address] PCP - [facility]Kn[facility]ics[facility] Medicine06/10/24 Ariella Mathis DO [address] [place], [place] [address] Referring PhysicianNeurology2 Aida Reese NP [address] [place] [address] [facility] Pract[facility]erKn[facility] Medicine06/10/24Team MemberRelationshipSpecialtyStart DateEnd Date Tapan Zazueta MD [address] [place] [address] PCP - [facility] Medicine06/10/24 Ariella Mathis DO [address] [place] [address] Referring PhysicianNeurology2 Aida Reese NP [address] [place] [address] Nurse Pract[facility]erBer[facility] Medicine06/10/24Team MemberRelationshipSpecialtyStart DateEnd Date Tapan Zazueta MD [address] [place] [address] PCP - Generalmily Medicine06/10/24 Ariella Mathis DO [address] [place] [address] Referring PhysicianNeurolog01/02/24 Aida Reese NP [address] [place] [address] [facility] Medicine06/10/24Team MemberRelationshipSpecialtyStart DateEnd Date Tapan Zazueta MD [address] [place] [address] PCP - [facility] Medicine06/10/24 Ariella Mathis DO [address] [place] [address] Referring PhysicianNeurology2 Aida Reese NP [address] [place] [address] Nurse Pract[facility] Medicine06/10/24Team MemberRelationshipSpecialtyStart DateEnd Date Tapan Zazueta MD [address] [place] [address] PCP - [facility] Medicine06/10/24 Ariella Mathis DO [address] [place] [address] Referring PhysicianNeurology2 Aida Reese NP [address] [place] [address] Nurse [facility] Medicine06/10/24Team MemberRelationshipSpecialtyStart DateEnd Date Tapan Zazueta MD [address] [place] [address] PCP - [facility] Medicine06/10/24 Ariella Mathis DO [address] [place] [address] Referring PhysicianNeurology2 Aida Reese, RIKKI [address] [place] [address] Nurse Pract[facility]erP[facility]06/10/24Te MemberRelationshipSpecialtyStart DateEnd Date Tapan Zazueta MD [address] [place] [address] PCP - [facility] Medicine06/10/24 Ariella Mathis DO [address] [place] [address] Referring PhysicianNeurology2 Aida Reese, RIKKI [address] [place] [address] Nurse Pract[facility] Medicine06/10/24Te MemberRelationshipSpecialtyStart DateEnd Date Tapan Zazueta MD [address] [place] [address] PCP - Generalmily Medicine06/10/24 Ariella Mathis DO [address] [place] [address] Referring PhysicianNeurolog01/02/24 Aida Reese NP [address] [place] [address] Nurse [facility]06/10/24Team MemberRelationshipSpecialtyStart DateEnd Date Tapan Zazueta MD [address] [place] [address] PCP - [facility]06/10/24 Ariella Mathis DO [address] [place] [address] Referring PhysicianNeurolog01/02/24 Aida Reese NP [address] [place] [address] Nurse [facility]06/10/24Team MemberRelationshipSpecialtyStart DateEnd Date Tapan Zazueta MD [address] [place] [address] PCP - [facility] Medicine06/10/24 Ariella Mathis DO [address] [place] [address] Referring PhysicianNeurology2 Aida Reese NP [address] [place] [address] Nurse Practitionermily Medicine06/10/24Team MemberRelationshipSpecialtyStart DateEnd Date Tapan Zazueta MD [address] [place] [address] PCP - GeneralFamily Medicine06/10/24 Ariella Mathis DO [address] [place] [address] Referring PhysicianNeurology2 Aida Reese, RIKKI [address] [place] [address] Nurse [facility] Medicine06/10/24Team MemberRelationshipSpecialtyStart DateEnd Date Tapan Zazueta MD [address] [place] [address] PCP - Generalmily Medicine06/10/24 Ariella Mathis DO [address] [place] [address] Referring PhysicianNeurology2 Aida Reese, RIKKI [address] [place] [address] Nurse Pract[facility] Medicine06/10/24Team MemberRelationshipSpecialtyStart DateEnd Date Tapan Zazueta MD [address] [place] [address] PCP - Generalmily Medicine06/10/24 Ariella Mathis DO [address] [place] [address] Referring PhysicianNeurolog01/02/24 Aida Reese NP [address] [place] [address] Nurse Pract[facility]06/10/24Team MemberRelationshipSpecialtyStart DateEnd Date Tapan Zazueta MD [address] [place] [address] PCP - [facility] Medicine06/10/24 Ariella Mathis DO [address] [place] [address] Referring PhysicianNeurology2 Aida Reese, RIKKI [address] [place] [address] Nurse Pract[facility]06/10/24Team MemberRelationshipSpecialtyStart DateEnd Date Tapan Zazueta MD [address] [place] [address] PCP - [facility] Medicine06/10/24 Ariella Mathis DO [address] [place] [address] Referring PhysicianNeurology2 Aida Reese NP [address] [place] [address] Nurse Pract[facility] Medicine06/10/24 Team Status: Inactive Member Role Status Dates Allan Lacey MD Attending Provider Active Start: September 12, 2024 End: September 12chase Reese NP-[facility] Care ProviderActive Start: September 12, 2024 End: September 12, 2024Team MemberRelationshipSpecialtyStart DateEnd Date Tapan Zazueta MD [address] [place] [address] PCP - [facility] Medicine06/10/24 Ariella Mathis DO [address] [place] [address] Referring PhysicianNeurology2 Adia Reese NP [address] [place] [address] Nurse Pract[facility]06/10/24Team MemberRelationshipSpecialtyStart DateEnd Date Tapan Zazueta MD [address] [place] [address] PCP - [facility] Medicine06/10/24 Ariella Mathis DO [address] [place] [address] Referring PhysicianNeurology2 Aida Reese NP [address] [place] [address] Nurse Pract[facility] Medicine06/10/24Team MemberRelationshipSpecialtyStart DateEnd Date Tapan Zazueta MD [address] [place] [address] PCP - [facility] Medicine06/10/24 Ariella Mathis DO [address] [place] [address] Referring PhysicianNeurology2 Aida Reese, RIKKI [address] [place] [address] Nurse Pract[facility]06/10/24Team MemberRelationshipSpecialtyStart DateEnd Date Tapan Zazueta MD [address] [place] [address] PCP - [facility] Medicine06/10/24 Ariella Mathis DO [address] [place], [place] [address] Referring PhysicianNeurology2 Aida Reese, RIKKI [address] [place] [address] Nurse [facility] Medicine06/10/24Team MemberRelationshipSpecialtyStart DateEnd Date Tapan Zazueta MD [address] [place] [address] PCP - [facility] Medicine06/10/24 Ariella Mathis DO [address] [place] [address] Referring PhysicianNeurolog01/02/24 Aida Reese NP [address] [place] [address] Nurse [facility]erKn[facility] Medicine06/10/24Team MemberRelationshipSpecialtyStart DateEnd Date Tapan Zazueta MD [address] [place] [address] PCP - [facility] Medicine06/10/24 Ariella Mathis DO [address] [place] [address] Referring PhysicianNeurolog01/02/24 Aida Reese NP [address] [place] [address] Nurse Pract[facility]06/10/24Team MemberRelationshipSpecialtyStart DateEnd Date Tapan Zazueta MD [address] [place] [address] PCP - [facility] Medicine06/10/24 Ariella Mathis DO [address] [place] [address] Referring PhysicianNeurology2 Aida Reese NP [address] [place] [address] Nurse [facility]06/10/24Team MemberRelationshipSpecialtyStart DateEnd Date Tapan Zazueta MD [address] [place] [address] PCP - Generalmily Medicine06/10/24 Ariella Mathis DO [address] [place] [address] Referring PhysicianNeurology2 Aida Reese NP [address] [place] [address] [facility] Medicine06/10/24Team MemberRelationshipSpecialtyStart DateEnd Date Tapan Zazueta MD [address] [place] [address] PCP - Generalmi Medicine06/10/24 Ariella Mathis DO [address] [place] [address] Referring PhysicianNeurolog01/02/24 Aida Reese NP [address] [place] [address] Nurse Pract[facility]06/10/24Team MemberRelationshipSpecialtyStart DateEnd Date Tapan Zazueta MD [address] [place] [address] PCP - [facility] Medicine06/10/24 Ariella Mathis DO [address] [place] [address] Referring PhysicianNemahamedlogy2 Aida Reese NP [address] [place] [address] Nurse Pract[facility]erKn[facility]ics[facility] Medicine06/10/24Team MemberRelationshipSpecialtyStart DateEnd Date Tapan Zazueta MD [address] [place] [address] PCP - GeneralFamily Medicine06/10/24 Ariella Mathis DO [address] [place] [address] Referring PhysicianNeurology2 Aida Reese NP [address] [place] [address] Nurse [facility]06/10/24Team MemberRelationshipSpecialtyStart DateEnd Date Tapan Zazueta MD [address] [place] [address] PCP - Generalmily Medicine06/10/24 Ariella Mathis DO [address] [place] [address] Referring PhysicianNeurology2 Aida Reese NP [address] [place] [address] [facility] Medicine06/10/24Team MemberRelationshipSpecialtyStart DateEnd Date Tapan Zazueta MD [address] [place] [address] PCP - Generalmily Medicine06/10/24 Ariella Mathis DO [address] [place] [address] Referring PhysicianNeurology2 Aida Reese NP [address] [place] [address] [facility] Medicine06/10/24Team MemberRelationshipSpecialtyStart DateEnd Date Tapan Zazueta MD [address] [place] [address] PCP - GeneralFamily Medicine06/10/24 Ariella Mathis DO [address] [place] [address] Referring PhysicianNeurology2 Aida Reese NP [address] [place] [address] Nurse [facility] Medicine06/10/24Team MemberRelationshipSpecialtyStart DateEnd Date Tapan Zazueta MD [address] [place] [address] PCP - GeneralFamily Medicine06/10/24 Ariella Mathis DO [address] [place] [address] Referring PhysicianNeurology2 Aida Reese NP [address] [place] [address] Nurse [facility] Medicine06/10/24Team MemberRelationshipSpecialtyStart DateEnd Date Tapan Zazueta MD [address] [place] [address] PCP - Generalmily Medicine06/10/24 Ariella Mathis DO [address] [place] [address] Referring PhysicianNeurology2 Aida Reese NP [address] [place] [address] [facility] Medicine06/10/24Team MemberRelationshipSpecialtyStart DateEnd Date Tapan Zazueta MD [address] [place] [address] PCP - Generalmi Medicine06/10/24 Ariella Mathis DO [address] [place] [address] Referring PhysicianNeurolog01/02/24 Aida Reese NP [address] [place] [address] Nurse Pract[facility]06/10/24Team MemberRelationshipSpecialtyStart DateEnd Date Tapan Zazueta MD [address] [place] [address] PCP - [facility] Medicine06/10/24 Ariella Mathis DO [address] [place] [address] Referring PhysicianNemahamedlogy2 Aida Reese NP [address] [place] [address] Nurse Pract[facility] Medicine06/10/24Team MemberRelationshipSpecialtyStart DateEnd Date Tapan Zazueta MD [address] [place] [address] PCP - GeneralFamily Medicine06/10/24 Ariella Mathis DO [address] [place] [address] Referring PhysicianNeurology2 Aida Reese NP [address] [place] [address] Nurse [facility]06/10/24Team MemberRelationshipSpecialtyStart DateEnd Date Tapan Zazueta MD [address] [place] [address] PCP - Generalmi Medicine06/10/24 Ariella Mathis DO [address] [place] [address] Referring PhysicianNeurology2 Aida Reese NP [address] [place] [address] Nurse [facility]06/10/24Team MemberRelationshipSpecialtyStart DateEnd Date Tapan Zazueta MD [address] [place] [address] PCP - [facility] Medicine06/10/24 Ariella Mathis DO [address] [place] [address] Referring PhysicianNeurology2 Aida Reese NP [address] [place] [address] [facility] Medicine06/10/24Team MemberRelationshipSpecialtyStart DateEnd Date Tapan Zazueta MD [address] [place] [address] PCP - GeneralFamily Medicine06/10/24 Ariella Mathis DO [address] [place] [address] Referring PhysicianNeurology2 Aida Reese NP [address] [place] [address] [facility] Medicine06/10/24Team MemberRelationshipSpecialtyStart DateEnd Date Tapan Zazueta MD [address] [place] [address] PCP - GeneralFamily Medicine06/10/24 Ariella Mathis DO [address] [place] [address] Referring PhysicianNeurology2 Aida Reese NP [address] [place] [address] [facility] Medicine06/10/24Team MemberRelationshipSpecialtyStart DateEnd Date Tapan Zazueta MD [address] [place] [address] PCP - [facility] Medicine06/10/24 Ariella Mathis DO [address] [place] [address] Referring PhysicianNeurology2 Aida Reese NP [address] [place] [address] [facility]06/10/24Team MemberRelationshipSpecialtyStart DateEnd Date Tapan Zazueta MD [address] [place] [address] PCP - [facility] Medicine06/10/24 Ariella Mathis DO [address] [place] [address] Referring PhysicianNeurolog01/02/24 Aida Reese NP [address] [place] [address] Nurse Pract[facility]06/10/24 Team Status: Active Member Role Status Dates [...] Role Status Dates Kaylene J Aichholz , VALIDATION LEADER-C Primary Care Provider Active Start: July 18, 2025 Kaylene López VALIDATION LEADER-CAttending ProviderActiveStart: July 18, 2025 Team Status: Inactive Member Role Status Dates Kaylene López VALIDATION LEADER-C Primary Care Provider Active Start: August 04, 2025 End: August 04, 2025Kaylene López VALIDATION LEADER-CAttending ProviderActiveStart: August 04, 2025 End: August 04, 2025Team MemberRelationshipSpecialtyStart DateEnd Date Tapan Zazueta MD [address] [place] [phone] [facility] - [facility]24 Ariella Mathis DO [address] [place] [address] Referring PhysicianNeurolog01/02/24 Aida Reese NP [address] [place] [phone] [facility] Medicine06/10/24 Team Status: Inactive Member Role Status Dates Kaylene López VALIDATION LEADER-C Primary Care Provider Active Start: August 18, 2025 End: August 18, 2025Kaylene López NP-CAttending ProviderActiveStart: August 18, 2025 End: August 18, 2025Team MemberRelationshipSpecialtyStart DateEnd Date Shaikh Ohara MD [facility] Tapan Zazueta MD [address] [place] [phone] [facility] - [facility]06/10/24 Ariella Mathis DO [address] [place] [address] Referring PhysicianNeurology2 Aida Reese NP [facility]Kn[facility] Medicine06/10/24Team MemberRelationshipSpecialtyStart DateEnd Date Shaikh Ohara MD PCP - GeneralInternal Medicine Tapan Zazueta MD [address] [place] [phone] PCP - GeneralFamily Medicine06/10/24 Ariella Mathis DO [address] [place] [address] Referring PhysicianNeurology2 Aida Reese NP [facility]06/10/24Team MemberRelationshipSpecialtyStart DateEnd Date Shaikh Ohara MD PCP - GeneralInternal Medicine Shaikh Ohara MD PCP - GeneralInternal Medicine Tapan Zazueta MD [address] [place] [phone] PCP - GeneralFamily Medicine06/10/24 Ariella Mathis DO [address] [place] [address] Referring PhysicianNeurolog01/02/24 Aida Reese NP Nurse PractitionerFaflly Medicine06/10/24 Goals (unrecognized section and content) Goals [...] BE BASED ON THE PRIMARY CLINICAL RECORDS. [employer] provides no warranty or guarantee of the accuracy or completeness of information in this document.
[2025-09-26 13:27] LABS: Anion Gap 15.7; Blood Urea Nitrogen 16.0 mg/dL (7.0-18.0); Calcium 8.8 mg/dL (8.5-10.1); Carbon Dioxide 23.1 mmol/L (21.0-32.0); Chloride 105 mmol/L (98-107); Estimated GFR (African America 53 (>=60 mL/min/1.73m^2); Estimated GFR (Non-African Ame 44 (>=60 mL/min/1.73m^2); Glucose 90 mg/dL (74-106); Potassium 3.8 mmol/L (3.5-5.1); Sodium 140 mmol/L (136-145)
== END 2025-09-26 12:54 | disposition home or self-care (01) ==
PROVIDERS: PCP Nurse Practitioner; Visit Provider Nurse Practitioner
DX: R11.2 Nausea with vomiting, unspecified (principal)
CPT/HCPCS: 36415; 80048

== ENCOUNTER 2025-10-15 07:58 | Outpatient (OUT) | payer MEDICARE, MEDICAID, SELFPAY ==
--- OUTSIDE RECORDS SUMMARY | 2025-10-08 09:57 | XMS_ITS | Continuity of Care Document ---
Author Organization [facility] Address [address] [place] [address] Phone Care Team Providers Care Real Estate Assistant Name Role Phone Michael Gómez Attending Provider [phone] Kaylene López COMMUNICATION COORDINATOR-C Primary Care Provider Kaylene López COMMUNICATION COORDINATOR-C Attending Provider Care Teams Patient Care Team Team Status: Active Member Role/Relationship Status Dates Kaylene López NP-C Primary Care Provider Active Visit Care Team Team Status: Active Member Role/Relationship Status Dates Michael Gómez Attending Provider Active Start: Paolo wing 2003 Visit Care Team Team Status: Active Member Role/Relationship Status Dates Michael Gómez Attending Provider Active Start: Paolo leachy 2003 Visit Care Team Team Status: Inactive Member Role/Relationship Status Dates Kaylene López COMMUNICATION COORDINATOR-C Primary Care Provider Active Start: July 17, 2025 End: July 17, 2025Kaylene López NP-CAttending ProviderActiveStart: July 17, 2025 End: July 17, 2025 Visit Care Team Team Status: Active Member Role/Relationship Status Dates Kaylene López COMMUNICATION COORDINATOR-C Primary Care Provider Active Start: July 18, 2025 FAMILIA SextonCAttenelaine ProviderActiveStart: July 18, 2025 Visit Care Team Team Status: Inactive Member Role/Relationship Status Dates Kaylene López , COMMUNICATION COORDINATOR-C Primary Care Provider Active Start: August 04, 2025 End: August 04, 2025Kaylene López , COMMUNICATION COORDINATOR-CAttending ProviderActiveStart: August 04, 2025 End: August 04, 2025 Visit Care Team Team Status: Inactive Member Role/Relationship Status Dates Kaylene Paolo López , COMMUNICATION COORDINATOR-C Primary Care Provider Active Start: August 18, 2025 End: August 18, 2025Kaylene López , COMMUNICATION COORDINATOR-CAttending ProviderActiveStart: August 18, 2025 End: August 18, 2025 Visit Care Team Team Status: Active Member Role/Relationship Status Dates Kaylene Paolo López , COMMUNICATION COORDINATOR-C Primary Care Provider Active Start: September 03, 2025 Kaylene López , COMMUNICATION COORDINATOR-CAttending ProviderActiveStart: September 03, 2025 Visit Care Team Team Status: Active Member Role/Relationship Status Dates Kaylene Paolo López , COMMUNICATION COORDINATOR-C Primary Care Provider Active Start: September 14, 2025 Kaylene López , COMMUNICATION COORDINATOR-CAttending ProviderActiveStart: September 14, 2025 Visit Care Team Team Status: Inactive Member Role/Relationship Status Dates Kaylene Paolo López , COMMUNICATION COORDINATOR-C Primary Care Provider Active Start: September 23, 2025 End: September 23, 2025Kaylene López , COMMUNICATION COORDINATOR-CAttending ProviderActiveStart: September 23, 2025 End: September 23, 2025 Visit Care Team Team Status: Active Member Role/Relationship Status Dates Kaylene Paolo López , COMMUNICATION COORDINATOR-C Primary Care Provider Active Start: September 26, 2025 Kaylene López , COMMUNICATION COORDINATOR-CAttending ProviderActiveStart: September 26, 2025 Patient Care Team Team Status: Inactive Member Role/Relationship Status Dates Kaylene Paolo López , COMMUNICATION COORDINATOR-C Primary Care Provider Active Start: October 08, 2025 End: October 08, 2025Kaylene López , COMMUNICATION COORDINATOR-CAttending ProviderActiveStart: October 08, 2025 End: October 08, 2025 Chief Complaint and Reason for Visit Chief Complaint Admit Date ^ April 26, 2004 7:04 am ^ May 24, 2004 7:08 am 2M July 17, 2025 8:49am Hosp F/U August 04, 2025 10:02am medicare wellness August 18, 2025 8 :39am Hospital FollowUp/Covid September 23 11:13am 2W October 08, 2025 2 :05pm Reason for Visit Admit Date Essential hypertension [...] 18, 2025 8:39am Encounter for subsequent [facility] (AWV) in Medicare patient August 18, 2025 8:39am Morbid obesity due to excess calories Oc tober 2024 8:39am Asthma September 23, 2025 11:13am Chronic respiratory failure with hypoxia September 23, 2025 11:13am COPD exacerbation September 23, 2025 11:13am COVID-19 September 23, 2025 11:13am Morbid obesity due to excess calories No vember 2024 11:13am Nausea & vomiting September 23, 2025 11:13am Asthma October 08, 2025 2 :05pm Bilateral lower extremity edema October 08, 2025 2:05pm Chronic GERD without esophagitis Decembe r 2024 2:05pm Chronic respiratory failure with hypoxia October 08, 2025 2:05pm COPD exacerbation October 08, 2025 2 :05pm COVID-19 October 08, 2025 2 :05pm Heart failure with preserved ejection fr action October 08, 2025 2:05pm Morbid obesity due to excess calories De cember 2024 2:05pm Nausea & vomiting October 08, 2025 2 :05pm Allergies, Adverse Reactions, Alerts Allergen Type Severity [...] 5:49amUnknownActiveCOPD (chronic obstructive pulmonary disease)December 08, 2022 6:92hgRvcetutVqkaxmU6@3L continuousCKD stage 3a, GFR 45-59 ml/minSeptember 2024 [...] 6:18amJune 2023 4:47pmFurosemide (Lasix) 20 mg tablet Vriysxdkxput73XNNLQiwaa026Jnwx 4th, 2024 11:00pmJuly 2023 6:41amLosartan 50 mg listkpBkepltxfgtzw94ACMEZhpgr314Yklb 2023 11:00pmJune 2023 3:49pmLosartan 50 mg ccsdlbRveyetcxfpzp30SFNLKgbmr cggow340IvxmApril 10, 2024 3:49pm April 10, 2024 3:50pmLosartan 50 mg terbxbOeeozstlkday75TOGWCnylz eaqys1891Upej 5th, 2024 3:50pmOctober 2023 12:09pmMagnesium Oxide 400 mg magnesium bgnoalSxcmfd055WABZRbyob904Odvg 2023 4:46pmUnknownFurosemide (Lasix) 20 mg dzceooOiaemm45AAUHZihvb496Svup 2023 6:40amUnknownPotassium Chloride 20 mEq tablet extended gddwpldKdewyszthzgz41IKMLVPymme91Ybrulgrrx 2024 11:00pm August 08, 2025 5:28amHypokalemia Hypokalemiatake with foodPotassium Chloride 20 mEq tablet extended release Swbynrfrlkwx36AWLCHWdlqp181Biivlqd 2024 5:27amDecember 2024 1:12pm Hypokalemia Hypokalemiatake with foodBupropion Hcl (Wellbutrin Xl) 150 mg tablet extended release 24 ifYedkpd955EKSQNkdws xanjtqj080Rswydzg 2024 9:43amChronic major depressive disorder, recurrent episode Major depressive disorder, recurrent, unspecifiedUnknownOmeprazole 20 mg capsule,delayed release(DR/EC)Rkhmwm81JAUTSmgei rjtmy7642Cuwytpm 2024 9:58amChronic gastroesophageal reflux disease without esophagitis Gastro-esophageal reflux disease without esophagitisUnknownPregabalin 75 mg lhxktztJvqyhm70JYBSRsfxh xkdqt81676Uhhpiek 2024 8:19amSpondylosis of lumbosacral region without myelopathy or radiculopathy Spondylosis without myelopathy or radiculopathy, lumbosacral regionUnknown Montelukast (Singulair) 10 mg lrojweEuowymcxpvzz21MPUWCeajp at bedtimeOctlake [facility] hospital 2024 4:11amOctober 2024 4:11amSevere persistent asthma Severe persistent asthma, uncomplicatedMontelukast (Singulair) 10 mg tablet Hbxzaq57QWKLQymsf at ezxfphj268Vqbalsj 2024 4:11amSevere persistent asthma Severe persistent asthma, uncomplicatedUnknownNystatin 100,000 unit/gram cream Zdbmqb9EPSZCSXBTMDIGFkvrv daily as needed for xcct688Noicocoo2024 12:00am Candidiasis Candidiasis, unspecifiedUnknownPotassium Chloride 20 mEq tablet extended release Eapzlp42XYNLJQjvqi440Csdzeuqg 2024 1:12pmHypokalemia Hypokalemiatake with foodUnknownSpironolacton-Hydrochlorothiaz 0 tablet Neivtloivnrz2BOGFTJlseqPaeuzpag 2016 12:00amFebruary 2022 7:04am Hydrochlorothiazide 25 mg qnqaunMvdjwsxoprth18JSBQQtmgeSqnfhzdj 2022 12:00amMay 2023 9:05rdItelfgwdmix-Praisrkac-Nfqnhias (Trelegy Ellipta) 200-62.5-25 mcg blister with dldmfcVnitienftcke5NUCUBULEJHKBIUy DirectedFebruary 2022 12:00amMay 2023 9:40amPotassium 99 mg RmbmohUjalshxouhjy27ZFFL Twice dailyFeuary 2022 12:00amMay 2023 9:41amMagnesium 200 mg Tablet Egvxhgbqmsyz778GBCULjhbeBbolllya 2nd, 2023 12:00amMay 2023 9:34amAlbuterol Sulfate 90 mcg/actuation Hfa Aerosol WdlpsnoKdmdtbqvolyg1SPHRIKCNEKYCROVEKUG 4-6 HOURS as needed for Shortness Of Breath Or WheezingAugust 2016 11:00pmMay 2023 9:40amIpratropium [place] (Atrovent Hfa) 17 mcg/actuation Hfa Aerosol XjgckcoUmmactjbxdyu1QSACCEUJYAYNUJTdsls dailygust 2016 11:00pmMay 2023 9:40amCyclobenzaprine 10 mg FlmxjpQdgnzzlqxpqa27SGDQGezfcIpnxgl 2016 11:00pmy 2023 9:40amClonazepam 0.5 mg TabletDiscontinued0.5MGPODaily Ingram 2016 11:00pmMay 2023 9:40amLisinopril 40 mg TabletDiscontinued 0.5TABPOTwice dailygust 2016 11:00pmFebruary 2022 7:04amTrazodone 50 mg ZgjchqYwjokuqyjnlp33ZGKYUdlnwmfUroxzf 2016 11:00pmMay 2023 9:38amFamotidine (Pepcid) 40 mg BgizjjRvcraterqpyp60ZHOBVypqgwhZuuhqa 2016 11:00pmFebruary 2022 7:02amAmlodipine (Norvasc) 2.5 mg TabletDiscontinued 2.5MGPOTwice dailyt 2016 11:00pmMa2023 9:40amParoxetine Hcl (Paxil) 20 mg QafzfpYdohywoluvyg99PCCGQywifKhnvso 2016 11:00pmMay 2023 9:39amLoratadine 10 mg SvrynhUsizdxoitruc09ANLFPmpmbJhxoms 2016 11:00pmMay 2023 9:41amOmeprazole 20 mg Tablet,Delayed Release (Dr/Ec) Lctgzsacrubk00GKEKAgtguThlccp 2016 11:00pmMay 2023 9:41amLatanoprost 0.005 % dtymnOlcnby5SQDPWQNQ-PWDPMyhwd at bedtimeOct2023 11:00pm UnknownAlbuterol Sulfate 2.5 mg /3 mL (0.083 %) solution for nebulizationActive 2.4FCLAIKXSYXLO5-4 TIMES PER DAY as needed for shortness of breath or wheezing September 04, 2024 11:00pmUnknownSodium Chloride 0.9 % solution for nebulization ActiveMLINHALATIONOct2023 11:00pmUnknown Ljssfslshep-Msbhwkzxc-Udjopomd (Trelegy Ellipta) 200-62.5-25 mcg blister with eggtdfCjfwbkdcghdt7NLKUPYXMBWCEMCqyakDom 8th, 2024 11:00pmSeptember 2024 5:56amMagnesium Oxide 400 mg magnesium ipcdksYfmjcqpfirww947ZBGGAmuvzGsw 8th, 2024 11:00pmJune 2023 6:18amSolifenacin 10 mg oonoroYmkypqxhtgrw31IVZTAkmpl March 13, 2024 11:00pmSeptember 2024 6:01amCholecalciferol (Vitamin D3) 25 mcg (1,000 unit) jvcldbmSaeyip27JVLWITqewnXic 8th, 2024 11:00pmUnknownFerrous Sulfate 325 mg (65 mg iron) evxnssXuopxw068ZOUXEmket 48 hoursMa2023 11:00pmUnknownPramipexole 0.25 mg tabletActive0.25MGPODaily at bedtimeMa2023 11:00pmUnknownPregabalin 75 mg xnckveiNefgefedhfvs81FOVVNlgkv dailyMa2023 11:00pmOctober 2024 8:20amOmeprazole 20 mg capsule,delayed release(DR/EC)Pnwwzymxdcbr85KXAGUmtdg dailyMa2023 11:00pmOctober 2024 9:58amMontelukast (Singulair) 10 mg ubyhwwLoyqpdzmoxkc40WHKHBmckoHrk 2023 11:00pmOctober 2024 4:11amTrazodone 100 mg ggcureCzibhbnmloge050ICBD Daily at bedtimeMay 2023 11:00pmSeptember 2024 6:00amParoxetine Hcl 30 mg bpqojnZfgrzsoyvblz69XEVMStjhpRzl 2023 11:00pmSeptember 2024 5:59amBaclofen 10 mg stpykkDkkrwz44ZVWKBflbj times dailyMay 2023 11:00pm UnknownAlbuterol Sulfate 90 mcg/actuation HFA aerosol suddxxmQvsrae6WMKO INHALATIONEvery 4 hours as needed for shortness of breath or wheezingMay 2023 11:00pmUnknownParoxetine Hcl (Paxil) 40 mg xecataPonohz21IUZGWeyltJzsggbjnb 2024 11:00pmUnknownBupropion Hcl (Wellbutrin Xl) 150 mg tablet extended release 24 kwPqawutormivg149CMEWZbcey morningSeptember 2024 11:00pmOctober 2024 9:43amTrospium 60 mg capsule,extended release 89zsUnsktz75ILBUGmtch July 16, 2025 11:00pmmust be taken on empty stomach at least 1 hour before a meal/food with water onlyUnknownGuaifenesin (Mucinex) 600 mg tablet extended release 98nyOxzaud805MCPAKluxq 12 hours as neededSept2024 11:00dpQsqowxxTcemyfwrrw-Zdtauvzu-Vqxgtqezue (Breztri Aerosphere) 160-9-4.8 mcg/actuation HFA aerosol fsfvmxkVljnzy8UCEYZKEVRYQVXJwblm dailySept2024 11:00pmUnknownEnsifentrine (Ohtuvayre) 3 mg/2.5 mL suspension for eyyclbvezmpdJhcsyu4AMBOGOCFPGSNHqspx dailySeptember 2024 11:00pmUnknown Trazodone 100 mg vvacrtFtybzt242KTJEHtugp at bedtime as neededSept2024 11:00pmUnknownFluticasone Propionate (Flonase Allergy Relief) 50 mcg/actuation spray,pyzergbxucInuxzm8KDVSTATRYJVNAAZCvquaAlpdnrqor 25th, 2025 11:00pmadminister into each nostrilUnknownOndansetron 4 mg tablet,disintegrating Zrxqom2PAYEOddoq 8 hours as needed for nausea and owozeaxc751Gvjggjnn 18th, 2025 12:00amNausea and vomiting Nausea with vomiting, unspecifiedUnknownDoxycycline Hyclate 100 mg capsuleActive 100MGPOTwice ovhpa808RmtbltodSeptember 23, 2025 12:00amAcute exacerbation of chronic obstructive pulmonary disease Chronic obstructive pulmonary disease with (acute) exacerbationUnknown Immunizations Immunization Event Date Not Given Reason Dose Number Yarn Weight And Strength Tester Lot Number Reason(s) Given Vaccine Information Statement (VIS) Detail Administration Location influenza, unspecified formulation August 09, 2017 Relevant Diagnostic Tests and/or Laboratory Data Laboratory Results Test Collection Date/Time Result Date/Time Result Interpretation Reference Range Result Comment Performing Site Magnesium Level July 18, 2025 3:41pm July 18, 2025 3:41pm 1.8 mg/dL 1.8-2.4Anion GapSept2024 3:41pmSept2024 3:41pm13.5Anion GapSeptember 2024 8:40amSept2024 8:40am15.9Anion GapOctober 2024 12:53pmOctober 2024 12:53pm11.3SARS-CoV-2 Ag [...] of Covid-19 under s ection 564(b)(1) of [facility], 21 [place]. 360bbb-3(b)(1), unless the declaration isterminated or authorization is revoked sooner.Bedside Influenza Type A Antigen September 14, 2025 11:40amNovember 2024 11:40amNegativeNegative for Flu A protein antigen. Infection due to Flu Acannot be ruled out. Flu A antigen in the sample may bebelow the detection limit of the test.Troponin I High Sensitivity September 14, 2025 11:45amNovember 2024 11:45am20.5 pg/mL4.0-51.3CUT-OFF POINTS HAVE BEEN ESTABLISHED BASED ON THE FOURTHIVERS DEFINITION OF MYOCARDIAL INFARCTION. THE UPPERREFERENCE LIMIT (URL) OF TROPONIN, DEFINED THE 99THPERCENTILE OF cTnI DISTRIBUTION IN A REFERENCE POPULATION,HAS BEEN CONFIRMED THE DECISION THRESHOLD FOR MIDIAGNOSIS.99TH PERCENTILE = 51.4 PG/MLNOTE: HIGH-SENSITIVITY TROPONIN ASSAY IS NOT INTENDED TO BEUSED IN ISOLATION BUT SHOULD BE INTERPRETED IN CONJUNCTIONWITH OTHER DIAGNOSTIC AND CLINICAL INFORMATION.Anion GapSeptember 14, 2025 11:45amNovember 2024 11:45am12.7Basophils # (Auto)September 14, 2025 11:45amNovember 2024 11:45am0.0 10 3/uL0.0-0.1Anion GapNov2024 1:09pmNov2024 1:09pm15.7BUN/Creatinine RatioSept2024 3:41pmSept2024 3:41pm11.3BUN/Creatinine RatioSeptember 2024 8:40amSeptember 2024 8:40am5.2BUN/Creatinine RatioOctober 2024 12:53pmOctober 2024 12:53pm8.3Bedside Influenza Type B AntigenSeptember 14, 2025 11:40amNovember 2024 11:40amNegativeNegative for Flu B protein antigen. Infection due to Flu Bcannot be ruled out. Flu B antigen in thesample may bebelow the detection limit of the test.Albumin/Globulin RatioNovemb2024 11:45amNovember 2024 11:45am0.7Basophils (%) (Auto)September 14, 2025 11:45amNovember 2024 11:45am0.6 %0.2-2.0BUN/Creatinine RatioNovember 2024 1:09pmNov2024 1:09pm13.1Blood Urea NitrogenSept2024 3:41pmSeptember 2024 3:41pm15.0 mg/dL7.0-18.0Blood Urea NitrogenSept2024 8:40am August 04, 2025 8:40am6.0 mg/dLBelow low normal7.0-18.0Blood Urea Nitrogen September 03, 2025 12:53pmOctober 2024 12:53pm9.0 mg/dL7.0-18.0Albumin September 14, 2025 11:45amNovember 2024 11:45am2.9 g/dLBelow low normal 3.4-5.0Eosinophils # (Auto)September 14, 2025 11:45amNovember 2024 11:45am 0.1 10 3/uL0.0-0.7Blood Urea NitrogenNov2024 1:09pmNov2024 1:09pm16.0 mg/dL7.0-18.0Calcium LevelSept2024 3:41pmSept2024 3:41pm8.7 mg/dL8.5-10.1Calcium LevelSeptember 2024 8:40am August 04, 2025 8:40am8.6 mg/dL8.5-10.1Calcium LevelOctober 2024 12:53pmOctober 2024 12:53pm8.8 mg/dL8.5-10.1Alkaline PhosphataseNov2024 11:45amNovember 2024 11:45am92 U/Q16-839Tpejgilnhpd (%) (Auto) September 14, 2025 11:45amNovember 2024 11:45am1.4 %0.9-7.0Calcium Level September 26, 2025 1:09pmNov2024 1:09pm8.8 mg/dL8.5-10.1Chloride LevelSeptember 2024 3:41pmSept2024 3:28pw604 mmol/L98-107 Chloride LevelSeptember 2024 8:40amSeptember 2024 8:09lc915 mmol/L 98-107Chloride LevelOctlake [facility] hospital 2024 12:53pmOctlake [facility] 2024 12:53sq428 mmol/V93-788Ggcmvnv Aminotransferase (ALT/SGPT)September 14, 2025 11:45am September 14, 2025 11:45am21 U/J60-02LabcbuhwnxGnziiqry 2024 11:45am September 14, 2025 11:45am40.3 %36.0-48.0Chloride LevelNovhonorhealth [facility] 2024 1:09pmNov2024 1:88ci961 mmol/R04-324Xqqjak Dioxide LevelSepthonorhealth john c. [facility] 2024 3:41pmSept2024 3:41pm26.8 mmol/L21.0-32.0Carbon Dioxide LevelSepthonorhealth john [facility]. [facility] 2024 8:40amSepthonorhealth john c. [facility] 2024 8:40am25.4 mmol/L21.0-32.0 Carbon Dioxide LevelOctlake cumberland regional hospital 2024 12:53pmOctlake [facility] 2024 12:53pm26.5 mmol/L21.0-32.0Aspartate Amino Transf (AST/SGOT)September 14, 2025 11:45am September 14, 2025 11:45am25 U/L47-54YqsgjlmexzAjznpqhw 9th, 2025 11:45am September 14, 2025 11:45am13.0 g/dL12.0-16.0Carbon Dioxide LevelNovhonorhealth j[facility]. [facility] 2024 1:09pmNov2024 1:09pm23.1 mmol/L21.0-32.0CreatinineSept2024 3:41pmSeptember 2024 3:41pm1.33 mg/dLAbove high normal0.55-1.02 CreatinineSeptember 2024 8:40amSeptember 2024 8:40am1.15 mg/dLAbove high normal0.55-1.02CreatinineOctober 2024 12:53pmOctober 2024 12:53pm1.08 mg/dLAbove high normal0.55-1.02BUN/Creatinine RatioNove2024 11:45amNovember 2024 11:45am7.0Immature Granulocyte # (Auto)September 14, 2025 11:45amNovember 2024 11:45am0.06 10 3/uLAbove high normal 0.00-0.03CreatinineSeptember 26, 2025 1:09pmNov2024 1:09pm1.22 mg/dLAbove high normal0.55-1.02Estimated GFR ()July 18, 2025 3:41pmSept2024 3:58ck12Cihzx low normal>=60 mL/min/1.73m 2 Estimated GFR ()August 04, 2025 8:40amSeptember 2024 8:65sl08Xgpiu low normal>=60 mL/min/1.73m 2Estimated GFR () September 03, 2025 12:53pmOctober 2024 12:53pm>60>=60 mL/min/1.73m 2Blood Urea NitrogenNov2024 11:45amNovember 2024 11:45am8.0 mg/dL 7.0-18.0Immature Granulocyte % (Auto)September 14, 2025 11:45amNovember 2024 11:45am0.9 %Above high normal0.0-0.5Estimated GFR () September 26, 2025 1:09pmNov2024 1:12nh30Hnxug low normal>=60 mL/min/1.73m 2Estimated GFR (Non- AmericanSept2024 3:41pm July 18, 2025 3:33es64Zfpdu low normal>=60 mL/min/1.73m 2Estimated GFR (Non- AmericanSeptember 2024 8:40amSeptember 2024 8:40am47 Below low normal>=60 mL/min/1.73m 2Estimated GFR (Non- AmericanOctober 2024 12:53pmOctober 2024 12:97hp22Pfjhr low normal>=60 mL/min/1.73m 2Calcium LevelNovember 2024 11:45amNovember 2024 11:45am8.1 mg/dLBelow low normal8.5-10.1Lymphocytes # (Auto)September 14, 2025 11:45amNovember 2024 11:45am1.8 10 3/uL1.2-3.8Estimated GFR (Non- AmericanNov2024 1:09pmNov2024 1:22vx65Dnvfm low normal>=60 mL/min/1.73m 2 Glucose LevelSeptember 2024 3:41pmSept2024 3:96ct537 mg/dL Above high -548Ixumqgb LevelSeptember 2024 8:40amSeptember 2024 8:41il398 mg/dLAbove high pqgjyf81-217Rmxrphx LevelOctober 2024 12:53pmOctober 2024 12:53pm96 mg/tU82-627Gcqnarel LevelNovember 2024 11:45amNovember 2024 11:84iq814 mmol/LAbove high icknqk21-702Qwatljdobnu (%) (Auto)September 14, 2025 11:45amNovember 2024 11:45am27.1 %20.5-60.0 Glucose LevelNovember 2024 1:09pmNov2024 1:09pm90 mg/jP05-792 Potassium LevelSeptember 2024 3:41pmSept2024 3:41pm3.3 mmol/L Below low normal3.5-5.1Potassium LevelSeptember 2024 8:40amSeptember 2024 8:40am3.3 mmol/LBelow low normal3.5-5.1Potassium LevelOctober 2024 12:53pmOctober 2024 12:53pm3.8 mmol/L3.5-5.1Carbon Dioxide LevelNovember 2024 11:45amNovember 2024 11:45am25.8 mmol/L21.0-32.0Mean Corpuscular HemoglobinNovember 2024 11:45amNovember 2024 11:45am29.7 pg26.7-34.0 Potassium LevelNovember 2024 1:09pmNovember 2024 1:09pm3.8 mmol/L 3.5-5.1Sodium LevelSept2024 3:41pmSeptember 2024 3:80ut591 mmol/Y775-426Sjqbgf LevelSeptember 2024 8:40amSeptember 2024 8:40am 144 mmol/R937-650Cvoyqw LevelOctlake c[facility] regional hospital 2024 12:53pmOctober 2024 12:30yv805 mmol/F458-636JecuzlbjseXwcbuobw 9th, 2025 11:45amNovember 2024 11:45am1.14 mg/dLAbove high normal0.55-1.02Mean Corpuscular Hemoglobin Concent September 14, 2025 11:45amNovember 2024 11:45am32.3 g/dL29.9-35.2Sodium LevelNov2024 1:09pmNov2024 1:01ny921 mmol/W506-534 Estimated GFR ()September 14, 2025 11:45amNovember 2024 11:82si86Nbkda low normal>=60 mL/min/1.73m 2Mean Corpuscular VolumeNov2024 11:45amNovember 2024 11:45am92.0 fL81.0-99.0Estimated GFR (Non- AmericanNovember 2024 11:45amNovember 2024 11:87ae43Mefbg low normal >=60 mL/min/1.73m 2Monocytes # (Auto)September 14, 2025 11:45amNovember 2024 11:45am0.6 10 3/uL0.3-0.8GlobulinNovember 2024 11:45amNovember 2024 11:45am4.2 g/dLMonocytes (%) (Auto)September 14, 2025 11:45amNovember 2024 11:45am8.6 %1.7-12.0Glucose LevelNovember 2024 11:45amNovember 2024 11:57go037 mg/dLAbove high jvatkt74-782Fzra Platelet VolumeNovember 2024 11:45amNovember 2024 11:45am9.1 fLBelow low normal9.5-13.5Potassium LevelNovember 2024 11:45amNovember 2024 11:45am3.5 mmol/L3.5-5.1 Neutrophils # (Auto)September 14, 2025 11:45amNovember 2024 11:45am4.1 10 3/uL1.4-6.5Sodium LevelNovember 2024 11:45amNovember 2024 11:08gy425 mmol/S828-933Zaokbjyaftz (%) (Auto)September 14, 2025 11:45amNovember 2024 11:45am61.4 %43.0-75.0Total BilirubinNov2024 11:45amNovember 2024 11:45am0.1 mg/dLBelow low normal0.2-1.0Platelet CountNovember 2024 11:45amNovember 2024 11:30id336 10 3/oF676-759Ufrsa ProteinNovember 2024 11:45amNovember 2024 11:45am7.1 g/dL6.4-8.2Red Blood CountNovember 2024 11:45amNovember 2024 11:45am4.38 10 6/uL4.20-5.40Red Cell Distribution WidthNovember 2024 11:45amNovember 2024 11:45am13.6 % 11.0-15.0Corrected White Blood CountNovember 2024 11:45amNovember 2024 11:45am6.7 10 3/uL4.0-11.0 Vital Signs Vital Reading Result Reference Range Collection Date/Time Height 64 [in_i] July 17, 2025 8:91epPrbiym691.25 kgSept2024 8:08amBody Mekybahoclf77.1 [degF]97.6-99.0Sept2024 8:08amHeart Rate74 /min 60-100Sept2024 8:08amRespiratory rate24 /doq16-05Llhxywbst 11th, 2025 8:08amOxygen saturation by Pulse rqppuusq59 %95-100Sept2024 8:08amBP Dxhxsula073 mm[Hg]100-140Sept2024 8:08amBP Hinavqpbc68 mm[Hg]60-100Sept2024 8:08amBMI (Body Mass Index)40.1 kg/u0Uejufnrqg2024 8:08amInhaled oxygen flow rate3 L/minSept2024 8:08am Ucccis25 [in_i]August 04, 2025 9:91ynJmtnev158.87 kgSeptember 2024 9:11amBody Qhkajvxpuhe35.8 [degF]97.6-99.0Sept2024 9:11amHeart Rate 93 /brg55-143Ucgqhisgr 29th, 2025 9:11amRespiratory rate18 /kca10-07Efjfcdrxi 29th, 2025 9:11amOxygen saturation by Pulse pxabazqy41 %95-100Sept2024 9:11amBP Mqakrsmq706 mm[Hg]100-140September 2024 9:11amBP Ipreqeofk11 mm[Hg]60-100September 2024 9:11amBMI (Body Mass Index)39.3 kg/q3Iimptrqcd 2024 9:11amInhaled oxygen flow rate3 L/minSepthonorhealth [facility] 2024 9:11am Rleetb30 [in_i]August 18, 2025 7:61iqWukqjy163.38 kgOctlake [facility] 2024 7:50am Body Hbqhervshbv85.1 [degF]97.6-99.0[facility] 2024 7:50amHeart Rate82 /min -100[facility] 2024 7:50amRespiratory rate20 /pcv38-63Mgwdfqj 2024 7:50amOxygen saturation by Pulse %95-100[facility] 2024 7:50amBP Rijvmjgf555 mm[Hg]100-140[facility] 2024 7:50amBP Ybftcxlmw26 mm[Hg]60-100 August 18, 2025 7:50amBMI (Body Mass Index)39.4 kg/l5Qrdrzvz 2024 7:50amInhaled oxygen flow rate3 L/minSt[facility] 2024 7:29nkVroamd14 [in_i] September 23, 2025 11:02ggVrajoi881.04 kgNovhon[facility] 2024 11:23amBody Zvrqyeppiew77.2 [degF]97.6-99.0[facility]2024 11:23amHeart Rate71 /min 60-100Nov2024 11:23amRespiratory rate14 /fwr46-30Iehecpba 18th, 2025 11:23amOxygen saturation by Pulse elfsbzlw95 %95-100[facility] 2024 11:23am BP Deyxgdpr224 mm[Hg]100-140Nov2024 11:23amBP Ruhlxlpvb47 mm[Hg] 60-100Nov2024 11:23amBMI (Body Mass Index)40.5 kg/f8Vszvwlml 2024 11:43gfGraslc44 [in_i]October 08, 2025 2:03anJonbkn03.05 kgDeceer 3rd, 2025 2:34pmBody Dcrhtczulwl60.8 [degF]97.6-99.0Dece2024 2:34pmHeart Rate75 /yao48-727UwksuenwOctober 08, 2025 2:34pmRespiratory rate20 /yhv61-05HdzzuyhxOctober 08, 2025 2:34pmOxygen saturation by Pulse enrjgcsw85 %95-100October 08, 2025 2:34pmBP Gnhroqca602 mm[Hg]100-140Decemb2024 2:34pmBP Uaizcepok44 mm[Hg] 60-100Decemb2024 2:34pmBMI (Body Mass Index)37.5 kg/j8UmqvcokhOctober 08, 2025 2:34pm Advance Directives Advance Directive Response Recorded Date/ Time Advance Directives Yes July 9:36am Insurance Providers Guarantor Diana Champion Address [address] [place] [address]Vrficgz Info.Home Phone: Coverage Status Update:2025 Payer Group Member ID Coverage Type Subscriber Relationship to Subscriber Effective Date Expiration Date Medicaid [id number] A Yates Id: [id number] [address] [place] [address] Home Phone: Email: [email or web address] Medical Centeredic[facility] [email or web address] A Champion Id: [id number] [address] [place] [address] Home Phone: Email: [email or web address] [id number] A Yates Id: [id number] [address] [place] [address] Home Phone: Email: [email or web address] [facility] [id number] A Yates Id: [id number] [address] [place] [address] Home Phone: Email: [email or web address] Raman [facility] Id: [id number] A Champion Id: [id number] [address] [place] [address] Home Phone: Email: [email or web address] Active 100% thru [address] [place] [address] Work Phone: [phone] [id number] A Champion Id: [id number] [address] [place] [address] Home Phone: Email: [email or web address] 2022 Encounters Encounter Location(s) Arrival/Admit Date Discharge/Departure Date Discharge/Departure Disposition Provider(s) Admitted Inpatient -3 April 26, 2004 7:04am MICHAEL GÓMEZ MDAdmitted Inpatient-3 [facility] 2003 7:08amSMEY TANNEReparted Physician/Provider Office Visit-[facility] [place] July 17, 2025 8:49amSept2024 9:51amDischarged to home care or self care (routine discharge)FAMILIA SextonCNon-patient / Non-visit- [facility] CoSeptember 2024 4:41pmKELI Sexton Departed Physician/Provider Office Visit-[facility]2024 10:02amSeptember 2024 10:41amDischarged to home care or self care (routine discharge)FAMILIA SextonCDeparted Physician/Provider Office Visit-[facility] 2024 8:39amOctober 2024 9:23amDischarged to home care or self care (routine discharge)Kaylene López NP-CNon-patient / Kge-zwgem-[facility]October 2024 1:53pm Kaylene López NP-CNon-patient / Lum-slhjw-[facility] November 2024 11:45amKaylene López NP-CDeparted Physician/Provider Office Visit-[facility] 2024 11:13amNovember 2024 11:52amDischarged to home care or self care (routine discharge)EDEN Sextonon-patient / Msk-hcyeo-Tyjsh [facility] 2024 1:09pmKaylene López NP-CDeparted Physician/Provider Office Visit-[facility] 2:56pm Discharged to home care or self care (routine discharge)Kaylene López , RIKKI-C Recent Diagnosis Onset Date Admit Date Essential [...] 18, 2025 8:39am Encounter for subsequent maeve ual wellness visit (AWV) in Medicare patient Unknown August 18, 2025 8:3 9am Morbid obesity due to excess calories Unknown August 18, 2025 8:39am Asthma Unknown September 23, 2 025 11:13am Chronic respiratory failure with hypoxia Unknown September 23, 2025 11:13am COPD exacerbation Unknown September 23, 2025 11:13am COVID-19 Unknown September 23, 2 025 11:13am Morbid obesity due to excess calories Unknown September 23, 2025 11:13am Nausea & vomiting Unknown September 23, 2025 11:13am Asthma Unknown October 08, 2:05pm Bilateral lower extremity edema Unknown October 08, 2025 2:05pm Chronic GERD without esophagitis Unknown October 08, 2025 2:05pm Chronic respiratory failure with hypoxia Unknown October 08, 2025 2:05pm COPD exacerbation Unknown October 08, 2025 2:05pm COVID-19 Unknown October 08 2:05pm Heart failure with preserved ejection fraction Unknown October 08, 2025 2:05pm Morbid obesity due to excess calories Unknown October 08, 2025 2:05pm Nausea & vomiting Unknown October 08, 2025 2:05pm Assessments Diagnosis Onset Date Resolution Status Admit Date Essential hypertension acuteSept2024 8:49amHypokalemiaacuteSept2024 8:49am HypomagnesemiaacuteSept2024 8:49amMajor depression, recurrent, chronicacuteSept2024 8:49amMorbid obesity due to excess calories acuteSept2024 8:49amChronic respiratory failuredeletedSept2024 8:49amBilateral lower extremity edemaacuteSeptember 2024 10:02amChronic GERD without esophagitisacuteSept2024 10:02amChronic respiratory failure with hypoxiaacuteSept2024 10:02amCOPD (chronic obstructive pulmonary disease)acuteSept2024 10:02amDiarrheaacute August 04, 2025 10:02amMorbid obesity due to excess caloriesacuteSept2024 10:02amNauseaacuteSept2024 10:02amStage 3 chronic kidney diseaseacuteSept2024 10:02amChronic respiratory failure with hypoxia acuteOctober 2024 8:39amEncounter for subsequent annual wellness visit (AWV) in Medicare patientacuteOctober 2024 8:39amMorbid obesity due to excess caloriesacuteOctober 2024 8:39amAsthmaacuteNovember 2024 11:13amChronic respiratory failure with hypoxiaacuteNovember 2024 11:13am COPD exacerbationacuteNovember 2024 11:13amCOVID-19acuteNovember 2024 11:13amMorbid obesity due to excess caloriesacuteNovember 2024 11:13amNausea & vomitingacuteNovember 2024 11:13amAsthmaacuteDecember 2024 2:05pmBilateral lower extremity edemaacuteDecember 2024 2:05pmChronic GERD without esophagitisacuteDeceer 2024 2:05pmChronic respiratory failure with hypoxiaacuteDecember 2024 2:05pmCOPD exacerbationacuteDecember 2024 2:05pmCOVID-19acuteDecember 2024 2:05pmHeart failure with preserved ejection fractionacutece2024 2:05pmMorbid obesity due to excess caloriesacuteDecember 2024 2:05pmNausea & vomitingacuteDecember 2024 2:05pm Plan of Treatment Author Kaylene López [facility] HospitalAuthoredSeptember 2024 8:37amcurrent meds: paxil at 40mg, wellbutrin [...] pulmonology check labs check labs Author Kaylene [facility] 2024 9:48amcontinue oxygen, inhalers as well. has appt with [facility] in [facility]/30 continue with inhalers Recommendations: freq small meals, [...] as well as elyte abnormals Author Kaylene [facility] 2024 8:22amReviewed Ht/Wt/BMI Recommend eye [...] wears oxygen, has appt w pulmonary at [facility] 10/23/25 stable at this time has had covid, flu and pneumonia vaccine Author Kaylene [facility] 2024 12:52pmDiscussed with patient their BMI (actual vs recommended). [...] notes from ER visit, EKG, and labs will add doxy at this point will hold on steroids and fu cxr fu in 2 weeks if worsening sxs go to ER if sxs not improving by 09/29/25 will order cxr add zofran check chem 8 Author Kaylene López [facility] 2024 7:06amrecent ER visit dx with COVID on 09/15/25 reviewed notes from ER visit, EKG, and labs add zofran check chem 8 wears oxygen, has appt w pulmonary at [facility] 10/23/25 stable at this time has had covid, flu and pneumonia vaccine current meds: albuterol, breztri, Ohtuvayre, mucinex, singulair Discussed with patient their BMI (actual vs recommended). We have discussed lifestyle modifications: attempts to perform phsyical activity as chronic conditions allow, monitor dietary intake: increasing protein/fruits/veggies and lowering carb intake (unless contraindicated). Limit sodas, juices, sugary drinks, as well as alcohol consumption. Future Tests Future scheduled test information is unavailable Pending Tests Test Name Ordered Date Scheduled Date Comprehensive Metabolic Panel August 04 9:34am Future Visits Future appointment information is unavailable Future Procedures Procedure Name Ordered Date Scheduled Date Basic Metabolic Panel July 17, 2025 8:33a m Dipstick and MicroscopicSeptember 2024 9:34amUrine CultureSeptember 2024 9:34amMagnesiumSeptember 2024 9:34amBasic Met[facility] PanelOct[facility] 2024 8:22amBasic Metabolic PanelNovember 2024 11:49am Future Medications Future medication information is unavailable Patient Instructions Patient instructions are unavailable
--- OUTSIDE RECORDS SUMMARY | 2025-10-15 08:10 | XMS_ITS | CCD ---
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 Name Role Phone Steph Collier Attending Provider Unavailable Chantel Rainey Primary Care Provider Unavailabl e JoanaHerberth Attending Provider Unavailable Unavailable Primary Care Provider Unavailabl e UNKNOWN, PHYSICIAN Referring Unavailable JOO LINN Attending Unavailable JOO LINN Admitting Unavailable UNKNOWN, PHYSICIAN Primary Care Unavailable Rena Hurd Unavailable Joana, Herberth Unavailable Gato Domingo Unavailable [phone] Steph Collier Attending Provider MD Gato Domingo Attending Provider [phone] MD Nicky Ohara Primary Care Provider Gilma [...] e FAWMICK, MESSER H Primary Care Unavailable [place], DR BRITTANY Elizondo Consulting Unavailable DARWIN, DR [...] H Consulting Unavailable Steph Collier Attending Provider [phone] Ariella Mathis DO Unavailable Tapan Zazueta MD Primary Care Provider Aida Reese NP Unavailable MD Allan Lacey Attending Provider KELI Reese Primary Care [facility] er TAPAN ZAZUETA Primary Care Physician Allan Lacey MD Attending Provider Mary Ann BRANDT-Aida Pastrana Primary Care [facility] er Allan Lacey Attending Unavailable Aida Reese Primary Care Unavaila Allan Fregoso Admitting Unavailable Allan Lacey Attending Unavailable Aida Reese Primary Care Unavaila Allan Fregoso Admitting Unavailable Mary Ann STAKE DRIVER, Aida Unavailable [phone] OMBALLI, MOHAMED Referring Unavailable RADHA, GHULAM Referring [...] Unavailable Tapan Zazueta MD Primary Care Provider [phone] Mary Ann STAKE DRIVER, Aida Unavailable [phone] Mary Ann STAKE DRIVER-C, Aida Tenorio Primary Care [facility] er Nicolas Dickinson DO Attending Provider Rene STAKE DRIVER-CKaylene Primary Care Provider [phone] Rene STAKE DRIVER-CKaylene Attending Provider AIDA REESE Attending UnavailJESSICA Thorpe [...] Care Provider Mary Ann BRANDT, Aida Unavailable [phone] Lev DRAPER, Primary Care Provider Unavailable Unavailable Unavailable Allergies Allergy ClassificationReported Allergen(s)Allergy TypeDate of OnsetReaction(s) Facility (20 sources)fentaNYL; Translations: [fentanyl]Drug Zyofmxu29-27-0182 Hallucinations (finding)[facility] (1 source)linezolid; Translations: [LINEZOLID]Drug Epitkas89-99-2904[facility] (20 sources)Vancomycin; Translations: [VANCOMYCIN]Drug Pegtarf22-07-0972Omkmvlo [facility] (17 sources)DENIES METAL SENSITITIVITYPropensity to adverse frsivzrnp94-68-8230 Unknown, Unknown ReactionK[facility] Health Medications Current Medications MedicationDrug Class(es)DatesSig (Normalized)Sig (Original)30 ACTUAT fluticasone furoate 0.2 MG/ACTUAT / umeclidinium 0.0625 MG/ACTUAT / vilanterol 0.025 MG/AC TUAT Dry Powder Inhaler [Trelegy] (2 sources)take 1 puff(s) by inhalation once dailyTrelegy Ellipta 200-62.5-25 MCG/INH 1 puff Inhalation Once a day Activealbuterol 0.83 mg/ml inhalation solution (20 sources)beta2-Adrenergic AgonistStart: 87-24-6097ihtnprfyz 0.083% Inh Meagan 3 mL 2.5 mg, 3 mL Start Date: 10/15/24 Status: Ordered Repeat number: 1Start: 56-58-4752Ilcqgvqsv Sulfate 2.5 mg /3 mL (0.083 %) [...] 14, 2024 12:00am Complies with drug therapyStart: 45-85-2374arur 1 puff(s) by inhalation every four to six hoursAlbuterol Sulfate Active 1 PUFF Inhalation EVERY 4-6 HOURS July 07, 2017 10:17amStart: 07-07-2017 End: 92-38-1822wbxt 1 puff(s) by inhalation every four to six hours as needed for wheezingAlbuterol Sulfate 90 mcg/actuation Hfa Aerosol Inhaler Discontinued 1 PUFF INHALATION EVERY 4-6 HOURS as needed for Shortness Of Breath Or Wheezing July 07, 2017 12:00am March 14, 2024 10:40amStart: 07-07-2017 End: 94-46-2952lelx 1 puff(s) by inhalation every four to six hoursAlbuterol Sulfate Discontinued 1 PUFF INHALATION EVERY 4-6 HOURS July 07, 2017 12:00am March 14, 2024 10:40amStart: 21-35-9806fajf 1 puff(s) by inhalation every four to [...] tablet (20 sources)gamma-Aminobutyric Acid-ergic AgonistStart: 03-14-2024 End: 73-58-6176ekpx 1 tablet by mouth three times dailyBaclofen 10 mg tablet Active 10 MG PO Three times daily March 14, 2024 12:00am Complies with drug the rapytake 1 tablet by mouth every eight hoursBaclofen 5 MG 1 tablet as needed Orally Three times a day Ogxshe557 actuat budesonide 0.16 mg/actuat / formoterol fumarate 0.0048 mg/actuat / glycopyrrolate 0.009 mg/actuat metered dose inhaler (20 sources)Corticosteroid, beta2-Adrenergic AgonistStart: 07-17-2025 Uapjmhynrv-Xisrzaxa-Uknoyepcqs (Breztri Aerosphere) 160-9-4.8 mcg/actuation HFA aerosol inhaler Active 2 INH INHALATION Twice daily July 17, 2025 12:00am Complies with drug therapyStart: 23-36-1454Kegdyfo Aerosphere 160-9-4.8 MCG/ACT aerosol every 12 (twelve) hours 02/24/2025 Xoxmah77 hr buPROPion hydrochloride 150 mg extended release oral tablet (17 sources)AminoketoneStart: 87-96-4916mgjt 1 tablet by mouth once daily in the morningBupropion Hcl (Wellbutrin Xl) 150 mg tablet extended release 24 hr Active 150 MG PO Every morning July 17, 2025 12:00am Complies with drug therapyStart: 04-23-2025 End: 75-12-0489cxyf 1 tablet by mouth every twenty-four hours in the morning buPROPion XL (Wellbutrin XL) 150 MG 24 hr tablet Indications: Moderate episode of recurrent major depressive disorder (HCC) Take 1 tablet (150 mg) by mouth in the morning. Do not crush, chew, or split. 30 tablet 1 06/18/2025 07/18/2025 Activecholecalciferol 0.025 mg oral capsule (13 sources)Vitamin DStart: 01-25-2024 End: 21-96-6452qtol 1 capsule by mouth once dailydoxycycline hyclate 100 mg oral capsule (7 sources)Tetracycline-class DrugStart: 01-14-2025 End: 91-68-2906syqb 1 capsule by mouth in the morningdoxycycline (Vibramycin) 100 MG capsule Take 100 mg by mouth in the morning and 100 mg before bedtime. 01/14/2025 01/16/2025 Discontinued (Therapy completed)Start: 11-18-2024 End: 88-74-0777itqh 1 capsule by mouth in the morningdoxycycline (Vibramycin) 100 MG capsule Take 100 mg by mouth in the morning and 100 mg before bedtime. 11/18/2024 11/28/2024 ActiveStart: 95-44-6904ygyp 1 tablet by mouth once daily doxycycline (Vibra-Tabs) 100 MG tablet Take 100 mg by mouth Daily 06/10/2024 ActiveEnsifentrine (3 sources)Start: 24-69-6707wfjz 3 mg by inhalation twice dailyEnsifentrine (Ohtuvayre) 3 mg/2.5 mL suspension for nebulization Active 3 MG INHALATION Twice dailySept2024 12:00am Complies with drug therapyEnsifentrine (Ohtuvayre) 3 MG/2.5ML suspension (18 sources)Start: 42-55-4049Mkgrglrrwbsa (Ohtuvayre) 3 MG/2.5ML suspension every 12 (twelve) hours 04/02/2025 Activeferrous sulfate 325 mg oral tablet (20 sources)Start: 94-66-8607axrs 1 tablet by mouth once dailyferrous sulfate 325 mg Tab 325 mg = 1 tab(s), Oral, Daily Start Date: 10/15/24 Status: Ordered Repeat number: 1Start: 17-06-6091Coxqhrj Sulfate 325 mg (65 mg iron) tablet Active 325 MG PO Every 48 hours March 14, 2024 12:00am Complies with drug therapy take 1 tablet by mouth every other dayIron 325 (65 Fe) MG 1 tablet Orally every other day Activefluconazole 150 mg oral tablet (1 source)Azole AntifungalStart: 09-10-2024 End: 82-71-4423hcfo 1 tablet by mouth oncefluconazole (Diflucan) 150 MG tablet Indications: Vaginal guero Take 1 tablet (150 mg) by mouth 1(one) time for 1 dose 1 tablet 09/10/2024 09/10/2024 Activefluticasone propionate 0.05 mg/actuat metered dose nasal spray (13 sources)CorticosteroidStart: 01-76-8358qcya 1 spray(s) nasal route once dailyFluticasone Propionate (Flonase Allergy Relief) 50 mcg/actuation spray,suspension Active 2 SPRAY INTRANASAL Daily August 01, 2025 12:00am administer into each nostril Complies with drug therapyStart: 94-65-8639fyfz 2 spray(s) nasal route once dailyfluticasone (Flonase) 50 MCG/ACT nasal spray Administer 2 sprays into each nostril Daily 05/01/2025tivetake 2 spray(s) nasal route once dailyFlonase Allergy Relief 50 MCG/ACT 2 spray in each nostril Nasally Once a day Activefluticasone furoate 0.1 MG/ACTUAT / umeclidinium 0.0625 MG/ACTUAT / vilanterol 0.025 MG/ACTUAT Dry Powder Inhaler (6 sources)Anticholinergic, Corticosteroid, beta2-Adrenergic AgonistStart: 04-61-4813fvjglfiayre/umeclidinium/vilanterol 200 mcg-62.5 mcg-25 mcg/inh inhalation powder inh, Inhalation, Daily Start Date: 10/15/24 Status: Ordered Repeat number: 1Start: 46-90-4736rmrhtnprvdu/umeclidinium/vilanterol 200 mcg- 62.5 mcg-25 mcg/inh inhalation powder inh, Inhalation, Daily Start Date: 10/15/24 Status: EptqvzuZkzpdyhezqw-Xfazzfrww-Cwlbvn (Trelegy Ellipta) 200-62.5-25 MCG/ACT aerosol powder (20 sources) End: 92-34-7713hdhp 1 puff(s) by mouth in the morning Wpmksdczyqg-Qwnucdavi-Rpnfbx (Trelegy Ellipta) 200-62.5-25 MCG/ACT aerosol powder Take 1 puff by mouth in the morning. 04/09/2025 Discontinued (Ineffective)take 1 puff(s) by mouth in the tgiihmiLkzhblvnkzz-Uyfypjvct-Civwbk (Trelegy Ellipta) 200-62.5-25 MCG/ACT aerosol powder Take 1 puff by mouth in the morning. Activefurosemide 20 mg oral tablet (20 sources)Loop DiureticStart: 04-10-2024 End: 75-78-9430dlhs 1 tablet by mouth once dailyFurosemide (Lasix) 20 mg tablet Active 20 MG PO Daily May 29, 2024 7:40am Complies with drug therapytake 1 tablet by mouth every twenty-four hoursFurosemide 20 MG 1 tablet Orally Once a day Activegabapentin 300 mg oral capsule (1 source)Anti-epileptic Agenttake 1 capsule by mouth every twelve hours Gabapentin 300 MG 1 capsule Orally twice a day Gyfxfi86 hr guaiFENesin 600 mg extended release oral tablet (20 sources)Start: 25-40-3619gynv 1 tablet by mouth every twelve hours [...] 0.05 mg/ml ophthalmic solution (20 sources)Prostaglandin AnalogStart: 28-68-9611Tysxaiz 0.005% Soln-Opth 1 drop(s) Start Date: 10/15/24 Status: Ordered Repeat number: 1Start: 09-05-2024 take 1 drop(s) into the eye(s) once daily at bedtimeLatanoprost 0.005 % drops Active 1 DROPS EYE-BOTH Daily at bedtime September 05, 2024 12:00am Complies with drug therapyStart: 48-87-1900nnwd 1 drop(s) into the eye(s) once daily at bedtimeLatanoprost 0.005 % drops Active 1 DROPS EYE-BOTH Daily at bedtime September 04, 2024 11:00pmStart: 37-77-7143kifr 1 drop(s) into the eye(s) once daily at bedtimeLatanoprost Active 1 DROPS EYE-BOTH Daily at bedtime September 05, 2024 12:00amStart: 14-29-3941hlxgpzahrtj (Xalatan) 0.005 % ophthalmic solution 06/18/2024 ActiveStart: 25-06-2905lpby 1 drop(s) into the eye(s) at bedtimelatanoprost (Xalatan) 0.005 % ophthalmic solution INSTILL 1 DROP INTO EACH EYE AT BEDTIME 06/18/2024 Activelevocetirizine dihydrochloride 5 mg oral tablet (1 source)Histamine-1 Receptor Antagonisttake 1 tablet by mouth every twenty- four hoursLevocetirizine Dihydrochloride 5 MG 1 tablet in the evening Orally Once a day ActivelevoFLOXacin 750 mg oral tablet (4 sources)Quinolone AntimicrobialStart: 01-15-2025 End: 16-11-2408tlsq 1 tablet by mouth once dailylevoFLOXacin (Levaquin) 750 MG tablet Indications: Pneumonia due to infectious organism, unspecified laterality, unspecified part of lung Take 1 tablet (750 mg) by mouth Daily for 7 days Discontinue doxycycline script 7 tablet 01/15/2025 01/22/2025 ActiveStart: 50-33-6084jdfu 1 tablet by mouth once dailylevoFLOXacin (Levaquin) 750 MG tablet Take 750 mg by mouth Daily 06/10/2024 Activemagnesium oxide 400 mg oral tablet (20 sources)Start: 08-09-2022 End: 98-82-1134ewoa 1 tablet by mouth once dailyMAGnesium-Oxide 400 (240 Mg) MG tablet Take 400 mg by mouth Daily 04/10/2024 Urlcet78 hr mirabegron 25 mg extended release oral tablet (1 source)beta3-Adrenergic AgonistStart: 07-22-2025 End: 40-89-5287tcmi 1 tablet by mouth once dailyMyrbetriq 25 mg oral tablet, extended release 25 mg = 1 tab(s), Oral, Daily, X 30 day(s), # 30 tab(s), Refills(s) 4, Pharmacy: [id number], 163, cm, 07/22/25 8:42:00 EDT, Height/Length Dosing, 105.1, kg, 07/22/25 8:42:00 EDT, Weight Dosing Start Date: 07/22/25 Stop Date: 12/19/25 Status: Ordered Quantity: 30.0 Unit: tab(s) Repeat number: 5 Indications: Mixed incontinence; Overactive bladder;montelukast 10 mg oral tablet (20 sources)Leukotriene Receptor AntagonistStart: 24-03-4623oxrr 1 tablet by mouth once dailyMontelukast (Singulair) 10 mg tablet Active 10 MG PO Daily March 14, 2024 12:00am Complies with drugtherapyMulti For Her 50+ - (11 sources)Multi For Her 50+ - as directed Orally ONCE A DAY ActiveMulti For Her 50+ - as directed Orally ActiveMulti Vitamins oral tablet (6 sources)Start: 33-74-4989iume 1 tablet by mouth once dailyMulti Vitamins oral tablet Oral, Daily, Refill(s) 0 Start Date: 10/15/24 Status: Ordered Repeat number: 1Start: 38-72-4955Tsist Vitamins oral tablet Oral, Daily, Refill(s) 0 [...] (5 sources)RNA Synthetase Inhibitor AntibacterialStart: 05-19-2025 End: 02-79-6390doxwtufle (Bactroban) 2 % ointment Indications: Skin pustule Apply topically 3 (three) times a day as needed (skin pustules) for up to 10 days 22 g 06/05/2025 06/15/2025 Activenystatin 115742 unt/ml topical cream (7 sources)Polyene AntifungalStart: 05-19-2025 End: 11-15-3052blvuoxpt (Mycostatin) cream Indications: Candidiasis of breast Apply topically every 12 (twelve) hours if needed (yeast dermatitis) for up to 14 days 60 g 1 05/19/2025 06/02/2025 ActiveStart: 02-17-2025 End: 75-27-4680tlpkdgvd (Mycostatin) cream Indications: Candidiasis Apply topically in the morning and before bedtime. Do all this for 14 days. Apply to affected area. 60 g 1 02/17/2025 03/03/2025 Activeomeprazole 20 mg delayed release oral capsule (20 sources)Proton Pump InhibitorStart: 02-26-2025 End: 04-17-7862aars 1 capsule by mouth onceomeprazole (PriLOSEC) [address] capsule Indications: Gastroesophageal reflux disease without esophagitis Take 1 capsule (20 mg) by mouth every 12 (twelve) hours 180 capsule 1 02/26/2025 Active Start: 10-15-2024 End: 19-75-5656nsxvbnsxud 20 mg Cap-DR 20 mg = 1 cap(s) Start Date: 10/15/24 Status: Ordered Repeat number: 1Start: 09-03-2024 End: 43-45-7556gdgl 1 capsule by mouth onceomeprazole (PriLOSEC) [address] capsule Indications: Gastroesophageal reflux disease without esophagitis Take 1 capsule (20 mg) by mouth every 12 (twelve) hours 180 capsule 09/03/2024 12/02/2024 DiscontinuedStart: 06-03-2024 End: 60-77-1873vrrl 1 capsule by mouth every twelve hoursomeprazole (PriLOSEC) [address] capsule Indications: Gastroesophageal reflux disease without esophagi tis TAKE 1 CAPSULE BY MOUTH EVERY 12 HOURS 180 capsule 06/03/2024 09/03/2024 Discontinued (Reorder)Start: 99-97-4482uudp 1 capsule by mouth twice daily Omeprazole 20 mg capsule,delayed release(DR/EC) Active 20 MG PO Twice daily March 14, 2024 12:00am Complies with drug therapyStart: 07-07-2017 End: 30-93-9513qmtk 1 tablet by mouth once dailyOmeprazole 20 [...] tablet (20 sources)Serotonin Reuptake InhibitorStart: 01-16-2025 End: 75-04-2400mwgv 1 tablet by mouth once dailyParoxetine Hcl (Paxil) 40 mg tablet Active 40 MG PO Daily July 17, 2025 12:00am Complies with drug therapyStart: 03-14-2024 End: 12-19-4425badm 1 tablet by mouth once dailyParoxetine Hcl 30 mg tablet Discontinued 30 MG PO Daily March 14, 2024 12:00am July 17, 2025 6:59am Start: 07-07-2017 End: 41-82-7116svig 1 tablet by mouth once dailyParoxetine Hcl (Paxil) 20 mg Tablet Discontinued 20 MG PO Daily July 07, 2017 12:00am March 14, 2024 10:39amPARoxetine (PAXIL) 40 mg tablet Take 40 mg by mouth. 0 ActiveComment on above:Take 40 mg by mouth.potassium chloride 20 meq extended release oral tablet (15 sources)Start: 07-22-2025 End: 48-16-8664jqex 1 tablet by mouth once daily at mealtimePotassium Chloride 20 mEq tablet extended release Active 20 MEQ PO Daily August 08, 2025 6:27am take with food Complies with drug therapyStart: 79-15-8492vnpk 1 tablet by mouth every twenty-four hoursPotassium Chloride ER 20 MEQ 1 tablet with food Orally Once a day for 90 day(s) Jul, ActiveStart: 04-96-2309qqqf 1 tablet by mouth every twelve hoursPotassium Chloride ER 20 MEQ 1 tablet with food Orally Twice a day for 90 days Jul, Activepramipexole dihydrochloride 0.25 mg oral tablet (20 sources)Nonergot Dopamine AgonistStart: 33-35-8038akweadufhus 0.25 mg Tab mg tab(s), Oral Start Date: 10/15/24 Status: Ordered Repeat number: 1Start: 03-14-2024 End: 22-44-4267qvvu 1 tablet by mouth once daily at bedtimePramipexole 0.25 mg tablet Active 0.25 MG PO Daily at bedtime March 14, 2024 12:[address] suad pizanotake 1 tablet by mouth every twenty-four hoursPramipexole Dihydrochloride 0.25 MG 1 tablet Orally Once a day ActivepredniSONE 10 mg oral tablet (20 sources)Start: 01-14-2025 End: 46-74-6384pddi 1 tablet by mouth once dailypredniSONE (Deltasone) 10 MG tablet Take 10 mg by mouth Daily Follow instructions on label 01/14/2025 01/25/2025 ActiveStart: 11-19-2024 End: 99-05-2801xqxnwzFRAU (Deltasone) 10 MG tablet Take 10 mg by mouth See administration instructions 11/19/2024 12/20/2024 ActiveStart: 11-12-2024 End: 79-70-3678cdzf 3 tablets by mouth once dailypredniSONE (Deltasone) 20 MG tablet Indications: Chronic obstructive pulmonary disease with acute lower respiratory infection (CMS/HCC) Take 3 tablets (60 mg) by mouth Daily for 5 days 15 tablet 11/12/2024 11/17/2024 ActiveStart: 90-89-6310yjla 1 tablet by mouth once dailypredniSONE (Deltasone) 20 MG tablet Take 20 mg by mouth Daily 06/10/2024 Activepregabalin 75 mg oral capsule (20 sources)Start: 03-14-2024 End: 55-38-1550fezd 1 capsule by mouth twice dailyPregabalin 75 mg capsule Active 75 MG PO Twice daily March 14, 2024 12:00am Complies with drug therapy Sodium Chloride (20 sources)Start: 31-98-8854ciwfbp chloride Start Date: 10/15/24 Status: Ordered Repeat number: 1Start: 61-25-8929cvalfk chloride Start Date: 10/15/24 Status: OrderedStart: 75-55-3213Mbrxnx Chloride 0.9 % solution for nebulization Active ML INHALATION September 05, 2024 12:00am Complies with drug therapyStart: 42-63-4341Qqkncj Chloride Active ML INHALATION September 05, 2024 12:00amStart: 27-81-7495zbvjtc chloride 0.9 % nebulizer solution Take 3 mL by nebulization in the morning and 3 mL before bedtime. 04/22/2024 Activesolifenacin succinate 10 mg oral tablet (20 sources)Cholinergic Muscarinic AntagonistStart: 01-13-2025 End: 22-81-3413yfdg 1 tablet by mouth once dailysolifenacin (VESIcare) 10 MG tablet Indications: Urge incontinence Take 1 tablet (10 mg) by mouth Daily 90 tablet 01/13/2025 04/09/2025 Discontinued (Ineffective)Start: 04-02-5684znvr 1 tablet by mouth once dailysolifenacin (VESIcare) 10 MG tablet Indications: Urge incontinence Take 1 tablet by mouth once daily 90 tablet 10/14/2024 ActiveStart: 09-45-6624rtgq 1 tablet by mouth once dailysolifenacin (VESIcare) 10 MG tablet Indications: Urge incontinence Take 1 tablet (10 mg) by mouth Daily 90 tablet 07/17/2024 ActiveStart: 02-19-2024 End: 00-58-7404yxde 1 tablet by mouth once dailySolifenacin 10 mg tablet Discontinued 10 MG PO Daily March 14, 2024 12:00am July 17, 2025 7:01am take 1 tablet by mouth every twenty-four hoursVESIcare 10 MG 1 tablet Orally Once a day ActivetraMADol hydrochloride 50 mg oral tablet (20 sources)Opioid AgonistStart: 23-20-1658ktuNKKPH 50 mg Tab 50 mg = 1 tab(s), Oral Start Date: 10/15/24 Status: Ordered Repeat number: 1Start: 01-23-2024 End: 54-90-1616rbdr 1 tablet by mouth every twelve hourstraMADol (Ultram) 50 MG tablet Take 50 mg by mouth every 12 (twelve) hours 01/23/2024 04/09/2025 Dis continued (Therapy completed)traZODone hydrochloride 100 mg oral tablet (20 sources)Serotonin Reuptake InhibitorStart: 10-15-2024 End: 52-35-8909tsal 1 tablet by mouth once daily at bedtime as neededTrazodone 100 mg tablet Active 100 MG PO Daily at bedtime as needed July 17, 2025 12:00am Complies with drug therapyStart: 76-30-2736zwxk 1 tablet by mouth at bedtimetraZODone (Desyrel) 100 MG tablet Indications: Moderate episode of recurrent major depressive disorder (HCC) (CMS/HCC) Take 1 tablet (100 mg) by mouth at bedtime 30 tablet 2 07/17/2024 ActiveStart: 03-14-2024 End: 69-30-7419okvu 1 tablet by mouth once daily at bedtimeTrazodone 100 mg tablet Discontinued 100 MG PO Daily at bedtime March 14, 2024 12:00am July 17, 2025 7:00amStart: 07-07-2017 End: 60-76-6015xnky 1 tablet by mouth at bedtimeTrazodone 50 mg Tablet Discontinued 50 MG PO Bedtime July 07, 2017 12:00am March 14, 2024 10:38am Comment on above:Take 50 mg by mouth.Trelegy Ellipta 200-62.5-25 MCG/INH (5 sources)take 1 puff(s) by inhalation once dailyTrelegy Ellipta 200-62.5-25 MCG/INH 1 puff Inhalation Once a day Ogmpzb52 hr trospium chloride 60 mg extended release oral capsule (20 sources)Cholinergic Muscarinic AntagonistStart: 31-57-5501dgul 1 capsule by mouth once daily 1 hour(s) before mealtimeTrospium 60 mg capsule,extended release 24hr Active 60 MG PO Daily July 17, 2025 12:00am must be taken on empty stomach at least 1 hour before a meal/food with water only Complies with drug therapyStart: 11-06-2024 End: 12-01-8581lzzd 1 tablet by mouth twice dailytrospium 20 mg oral tablet 20 mg = 1 tab(s), Oral, BID, # 60 tab(s), Refills(s) 11, Pharmacy: [id number], 163, cm, 10/15/24 14:36:00 EST, Height/Length Dosing, 107, kg, 10/15/24 14:36:00 EST, Weight Dosing Start Date: 11/06/24 Stop Date: 10/21/25 Status: Ordered Quantity: 60.0 Unit: tab(s)Repeat number: 12valACYclovir 1000 mg oral tablet (2 sources)Herpesvirus Nucleoside Analog DNA Polymerase Inhibitor, Herpes Simplex Virus Nucleoside Analog DNA Polymerase Inhibitor, Herpes Zoster Virus Nucleoside Analog DNA Polymerase InhibitorStart: 11-12-2024 End: 23-85-3247tghs 1 tablet by mouth in the morningvalACYclovir [...] Hfa Aerosol Inhaler (1 source)Start: 07-07-2017 End: 87-36-9135vttu 1 puff(s) by inhalation every four to six hours as needed for wheezingAlbuterol Sulfate 90 mcg/actuation Hfa Aerosol Inhaler Discontinued 1 PUFF INHALATION EVERY 4-6 HOURS as needed for Shortness Of Breath Or Wheezing July 06, 2017 11:00pm March 14, 2024 9:40amamLODIPine 2.5 mg oral tablet (17 sources)Dihydropyridine Calcium Channel BlockerStart: 07-07-2017 End: 32-96-1212fkeu 1 tablet by mouth twice dailyAmlodipine (Norvasc) [...] mg oral tablet (9 sources)BenzodiazepineStart: 07-07-2017 End: 46-56-4202ssvv 1 tablet by mouth once dailyClonazepam 0.5 mg Tablet Discontinued 0.5 MG PO Daily July 07, 2017 12:00am March 14, 2024 10:40am Comment on above:Take 0.5 mg by mouth.cyclobenzaprine hydrochloride 10 mg oral tablet (9 sources)Muscle RelaxantStart: 07-07-2017 End: 78-60-9780zgar 1 tablet by mouth once dailyCyclobenzaprine 10 mg Tablet Discontinued 10 MG PO Daily July 07, 2017 12:00am March 14, 2024 10:40am Comment on above:Take 10 mg by mouth.famotidine 40 mg oral tablet (9 sources)Histamine-2 Receptor AntagonistStart: 07-07-2017 End: 87-34-4144fxgv 1 tablet by mouth at bedtimeFamotidine (Pepcid) 40 mg Tablet Discontinued 40 MG PO Bedtime July 07, 2017 12:00am 2022 8:02amfamotidine (PEPCID) 20 mg tablet Take 20 mg by mouth. 0 ActiveComment on above:Take 20 mg by mouth.Xstvssmcmud-Ekfpwakvd-Raqcwftt (13 sources)Start: 03-14-2024 End: 38-90-4302Ahkewqosjtn-Umeclidin-Vilanter (Trelegy Ellipta) 200-62.5-25 mcg blister with device Discontinued 1INH INHALATION Daily March 14, 2024 12:00am July 17, 2025 6:56amStart: 05-34-1456Jvebbjtmxhh-Umeclidin-Vilanter (Trelegy Ellipta) 200-62.5-25 mcg blister with device Active 1 INH INHALATION Daily March 13, 2024 11:00pmStart: 26-67-0382Xakfzqbnvqt-Umeclidin-Vilanter (Trelegy Ellipta) 200-62.5-25 mcg blister with device Active 1 INH INHALATION Daily March 14, 2024 12:00amStart: 12-08-2022 End: 66-38-4528Ukbrzfjukzt-Umeclidin-Vilanter (Trelegy Ellipta) 200-62.5-25 mcg blister with device Discontinued 1INH INHALATION As Directed December 08, 2022 12:00am March 14, 2024 9:40amStart: 12-08-2022 End: 53-99-6885Zzozturbjqe-Umeclidin-Vilanter (Trelegy Ellipta) 200-62.5-25 mcg blister with device Discontinued 1INH INHALATION As Directed December 08, 2022 1:00am March 14, 2024 10:40amStart: 64-53-0410Afeeirvkume-Umeclidin-Vilanter (Trelegy Ellipta) 200-62.5-25 mcg blister with device Active 1 INH INHALATION As Directed December 08, 2022 12:00amhydroCHLOROthiazide 25 mg oral tablet (15 sources)Thiazide DiureticStart: 12-08-2022 End: 06-52-0146iseo 1 tablet by mouth once dailyHydrochlorothiazide 25 mg tablet Discontinued 25 MG PO Daily December 08, 2022 1:00am March 14, 2024 10:40am hydroCHLOROthiazide 25 mg / spironolactone 25 mg oral tablet (9 sources)Thiazide Diuretic, Aldosterone AntagonistStart: 46-99-4603drte 1 tablet by mouth oncespironolactone-hctz 25/25 (ALDACTAZIDE) 25-25 mg per tablet Take 25 mg by mouth. 0 01/03/2019 ActiveStart: 09-15-2017 End: 67-50-8183Gyqwatpgjugka-Hydrochlorothiaz 0 tablet Discontinued 1 TAB PO Daily September 15, 2017 1:00am December 08, 2022 8:04amComment on above:Take 25 mg by mouth.200 actuat ipratropium bromide 0.017 mg/actuat metered dose inhaler (12 sources)AnticholinergicStart: 07-07-2017 End: 50-44-9059yceo 1 puff(s) by inhalation twice dailyIpratropium [place] (Atrovent Hfa) 17 mcg/actuation Hfa Aerosol Inhaler Discontinued 2 PUFF INHALATI ON Twice daily July 07, 2017 12:00am March 14, 2024 10:40amtake 2 puff(s) by inhalation four times dailyAtrovent HFA 17 MCG/ACT 2 puffs Inhalation Four times a day Activelisinopril 40 mg oral tablet (8 sources)Angiotensin Converting Enzyme InhibitorStart: 07-07-2017 End: 35-01-1848qfcg 0.5 tablet by mouth twice dailyLisinopril 40 mg Tablet Discontinued 0.5 TAB PO Twice daily July 07, 2017 12:00am December 08, 2022 8:04amloratadine 10 mg oral tablet (8 sources)Start: 07-07-2017 End: 03-42-9122qkjv 1 tablet by mouth once dailyLoratadine 10 mg Tablet Discontinued 10 MG PO Daily July 07, 2017 12:00am March 14, 2024 10:41am losartan potassium 50 mg oral tablet (18 sources)Angiotensin 2 Receptor BlockerStart: 04-10-2024 End: 06-40-8670fkyl 1 tablet by mouth twice dailyLosartan 50 mg tablet Discontinued 50 MG PO Twice daily 180 April 10, 2024 4:50pm September 05, 2024 1:09pmStart: 04-10-2024 End: 03-39-9360jkgn 1 tablet by mouth once dailyLosartan 50 mg tablet Discontinued 50 MG PO Daily 90 April 10, 2024 12:00am April 10, 2024 4:49pmtake 1 tablet by mouth in the morning, then take 1 tablet by mouth twice daily in the eveningLosartan Potassium 50 MG 1 tablet AM / 1 tablet PM Orally bid for 90 days ActiveMagnesium (7 sources)Start: 12-08-2022 End: 65-43-7493knlq 1 tablet by mouth once dailyMagnesium 200 mg Tablet Discontinued 200 MG PO Daily December 08, 2022 1:00am March 14, 2024 10:34am Start: 12-08-2022 End: 74-65-2834gted 1 tablet by mouth once dailyMagnesium 200 mg Tablet Discontinued 200 MG PO Daily December 08, 2022 12:00am March 14, 2024 9:34am Start: 12-08-2022 End: 65-45-1357ohac 200 mg by mouth once dailyMagnesium Discontinued 200 MG PO Daily December 08, 2022 1:00am March 14, 2024 10:34amStart: 75-00-2949enbh 200 mg by mouth once dailyMagnesium Active 200 MG PO Daily December 08, 2022 12:00ammethylPREDNISolone (18 sources)CorticosteroidStart: 94-54-6796Lclu-Medrol 40 mg Jul, 1 mL Start: 79-84-4716Lsuv-Medrol 40 mg Jan, 1 mLpotassium 99 mg extended release oral tablet (7 sources)Start: 12-08-2022 End: 52-68-5247tqqm 1 tablet by mouth twice dailyPotassium 99 mg Tablet Discontinued 99 MG PO Twice daily December 08, 2022 1:00am March 14, 2024 10: 41am Problems Active Problems Problem ClassificationProblemDateDocumented DateEpisodic/ChronicAsthma (20 sources)Asthma; Translations: [Unspecified asthma, uncomplicated]Onset: 10-04-2023 Resolved: 360684-93-3138KrvowfoRstqhy of colon (20 sources)History of malignant neoplasm of colon; Translations: [History of large intestine malignacy]Onset: 07-08-2022 Resolved: 48-70-3409UromiqooPdoohz of rectum and anus (20 sources)Malignant neoplasm of rectosigmoid junction; Translations: [Malignant neoplasm of rectosigmoid junction]Onset: hronic Cancer of rectum and anus (4 sources)History of malignant neoplasm of anus; Translations: [Personal history of other malignant neoplasm of rectum, rectosigmoid junction, and anus] EpisodicChronic kidney disease (20 sources)Chronic kidney disease stage 3; Translations: [Chronic kidney disease, stage 3 (moderate)]Onset: 871893-01-5574BzfdaziQifvbcq obstructive pulmonary disease and bronchiectasis (20 sources)Chronic obstructive lung disease; Translations: [Chronic obstructive pulmonary disease, unspecified]Onset: 663342-33-9334UxlqpzvHbemsei on above:O2@3L continuousChronic obstructive pulmonary disease and bronchiectasis (1 source)Chronic obstructive pulmonary disease and bronchiectasisComplication of device; implant or graft (11 sources)Prosthetic joint loosening; Translations: [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, initial encounter]EpisodicCongestive heart failure; nonhypertensive (20 sources)Chronic heart failure co-occurrent with normal ejection fraction; Translations: [Chronic diastolic (congestive) heart failure]Onset: 10-04-2023 46-53-2457EofldnpAddngbwqtv and other anemia (11 sources)Anemia of renal disease; Translations: [Anemia in chronic kidney disease]ChronicDiseases of white blood cells (20 sources)Leukocytosis; Translations: [Elevated white blood cell count, unspecified]Onset: 720562-75-2511VtajnbqXlxivbkcz of lipid metabolism (20 sources)Hyperlipidemia; Translations: [Hyperlipidemia, unspecified]Onset: 661261-67-0957VoiyvznCbxugtjqqd disorders (20 sources)Gastroesophageal reflux disease; Translations: [Gastro-esophageal reflux disease without esophagitis]Onset: 471670-66-0835WcfzsyoDqmrdydqt hypertension (20 sources)Hypertensive disorder; Translations: [Essential (primary) hypertension]Onset: 04-01-2014 Resolved: 043371-35-9350AvyxushJcxra and electrolyte disorders (16 sources)Hypokalemia; Translations: [Hypokalemia]Onset: 11-17-2021 Resolved: 68-81-6543RnqpvzdqTfcnkigivhorwcpn hemorrhage (11 sources)Hemorrhage of rectum and anus; Translations: [Hemorrhage of rectum and anus]EpisodicGenitourinary symptoms and ill-defined conditions (20 sources)Urge incontinence of urine; Translations: [Urge incontinence]Onset: 439905-77-3715HdacksgYauygebmrctz with complications and secondary hypertension (20 sources)Chronic kidney disease due to hypertension; Translations: [Hypertensive chronic kidney disease withstage 1 through stage 4 chronic kidney disease, or unspecified chronic kidney disease]Onset: 11-17-2021 Resolved: 84-50-2540DxgpldySemr disorders (20 sources)Depressive disorder; Translations: [Depression]Onset: 10-04-2023 68-56-0448YuxuwwaQsmema and vomiting (4 sources)Nausea; Translations: [Nausea]88-48-5276VbzbdsxqXffyexkytbt deficiencies (20 sources)Vitamin D deficiency; Translations: [Vitamin D deficiency, unspecified]Onset: 001349-82-7464LsdjxvmNzsatgombugkvv (20 sources)Arthritis of left hip; Translations: [Unilateral primary osteoarthritis, left hip]Onset: 10-17-2018 Resolved: 503483-29-0753EqxadxsXgxuo aftercare (11 sources)Patient encounter status; Translations: [Aftercare following joint replacement surgery]ChronicOther and unspecified benign neoplasm (2 sources)Nevus lipomatosus cutaneous superficialis; Translations: [Benign lipomatous neoplasm of skin and subcutaneous tissue of unspecified sites] 51-08-8810XlvhaxjxQdpit connective tissue disease (11 sources)History of repair of hip joint; Translations: [Presence of left artificial hip joint]ChronicOther connective tissue disease (2 sources)History of right total knee replacement; Translations: [Presence of right artificial knee joint]90-25-7037RiaprmoZzwfx diseases of bladder and urethra (1 source)Detrusor overactivity; Translations: [Overactive bladder]Onset: 64-49-5457VdedbdtUqqnd diseases of bladder and urethra (1 source)Overactive jpuwnxu19-11-2364PozjnqrPvimn diseases of kidney and ureters (11 sources)Secondary hyperparathyroidism; Translations: [Secondary hyperparathyroidism of renal origin]ChronicOther diseases of kidney and ureters (5 sources)Secondary hyperparathyroidism of renal origin; Translations: [SEC HYPERPARATHYROIDISM RENAL ORIGN]Onset: 11-17-2021 Resolved: 06-04-0957GzdhkqhVbtiy gastrointestinal disorders (5 sources)Diarrhea; Translations: [Diarrhea, unspecified]66-70-5084Cklrfiri Other hereditary and degenerative nervous system conditions (20 sources)Restless legs; Translations: [Restless legs syndrome]Onset: 401004-73-5008XschdkhGqbwy lower respiratory disease (2 sources)Other forms of dyspnea; Translations: [Other forms of dyspnea]Onset: 00-54-0547UdsqgmzzMjqhq nervous system disorders (20 sources)Chronic pain; Translations: [Other chronic pain]Onset: 12-05-2023 31-94-8404MmqkaixLxbvp nervous system disorders (20 sources)Critical illness myopathy; 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] Onset: 631759-46-2577UyeomvzKmpwg non-epithelial cancer of skin (6 sources)Squamous cell carcinoma of skin of trunk; Translations: [Squamous cell carcinoma of skin of other part of trunk]52-82-1792QrbacggxHyzii non- traumatic joint disorders (20 sources)Knee pain; Translations: [Pain in right knee]EpisodicOther non- traumatic joint disorders (1 source)Pain in right hip; Translations: [PAIN IN RIGHT HIP]Onset: 03-27-2023 EpisodicOther non-traumatic joint disorders (2 sources)Pain in right knee; Translations: [Pain in joint, lower leg] 62-12-0037NdtlduljWvawr nutritional; endocrine; and metabolic disorders (11 sources)Body mass index 30+ - obesity; Translations: [Body mass index (BMI) 36.0-36.9, adult]ChronicOther nutritional; endocrine; and metabolic disorders (16 sources)Hypomagnesemia; Translations: [Hypomagnesemia]70-91-2288FwznbtsGcbrj nutritional; endocrine; and metabolic disorders (7 sources)Hypomagnesemia; Translations: [Disorders of magnesium metabolism] Onset: 63-87-7781AsiyiukVzdik nutritional; endocrine; and metabolic disorders (20 sources)Body mass index 40+ - severely obese; Translations: [Morbid (severe) obesity due to excess calories]Onset: 632474-47-8697MheadmdPxtne nutritional; endocrine; and metabolic disorders (20 sources)Obesity caused by energy imbalance; Translations: [Morbid (severe) obesity due to excess calories]Onset: 950679-45-6263JaviksdGqzky nutritional; endocrine; and metabolic disorders (9 sources)Morbid obesity; Translations: [Morbid (severe) obesity due to excess calories]01-94-0756OnizzqjCxfyu nutritional; endocrine; and metabolic disorders (5 sources)Hyperuricemia without signs of inflammatory arthritis and tophaceous disease; Translations: [HU W/OSIGNS IA AND TOPHACEOUS DZ]Onset: 11-17-2021 Resolved: 77-17-7735JwodrbczOumgo skin disorders (4 sources)Seborrheic keratosis; Translations: [Other seborrheic keratosis] 08-31-5438IgnuvtynHmplc skin disorders (4 sources)Lentiginosis; Translations: [Other melanin hyperpigmentation] 33-71-9050DoavkfnaYwbzp upper respiratory infections (20 sources)Chronic sinusitis; Translations: [Chronic sinusitis, unspecified] Onset: 663687-69-4459GfkhmweYkfwfvpfb heart disease (20 sources)Secondary pulmonary hypertension; Translations: [Other secondary pulmonary hypertension]Onset: 490398-37-6852CxjxupdHudhhyeztqx failure; insufficiency; arrest (adult) (20 sources)Chronic hypoxemic respiratory failure; Translations: [Chronic respiratory failure with hypoxia]Onset: 382745-03-1176ChbtobsRuqdmiowgl arthritis and related disease (20 sources)Rheumatoid arthritis; Translations: [Rheumatoid arthritis, unspecified]Onset: 367474-20-0202DeejyxlCjqmjabpzvu; intervertebral disc disorders; other back problems (20 sources)Sacroiliitis, not elsewhere classified; Translations: [Herniation of nucleus pulposus of lumbar intervertebral disc]Onset: 05-22-2018 Resolved: 834409-89-6329EhlddcyZixupocwfiwp (4 sources)CONTACT W/AND (SUSP) EXPOS COVID-19; Translations: [CONTACT W/AND (SUSP) EXPOS COVID-19]Onset: 13-57-3214Lnhbziajlpjv (4 sources)CHRN KIDNEY DISEASE STG 3 UNSP; Translations: [CHRN KIDNEY DISEASE STG 3 UNSP]Onset: 02-25-9732Gwxnhsjzwbnt (3 sources)ACUTE COUGH; Translations: [ACUTE COUGH]Onset: 98-20-9093Ypvmssfvrtek (20 sources)Patient on antidepressant monitoring planOnset: Unclassified (6 sources)Arthropathy of right knee -20-7105Wsktohguazmd (6 sources)Displacement of lumbar intervertebral ctbh84-47-6667Wlmrczgpczmv (6 sources)Malignant colorectal ncximpbj48-24-4058Zagbs infection (1 source)COVID-19; Translations: [COVID-19]Onset: 04-05-2023 Past or Other Problems Problem ClassificationProblemDateDocumented DateEpisodic/ChronicAcute and unspecified renal failure (20 sources)Acute renal failure syndrome; Translations: [Acute kidney failure, unspecified]Onset: 12-28-2023 Resolved: 836074-35-3115GiqnqqhkNojafcb dysrhythmias (20 sources)Atrial fibrillation; Translations: [Unspecified atrial fibrillation] Onset: 12-05-2023 Resolved: 770033-55-1993KgglqboVmzakwi kidney disease (11 sources)Chronic kidney disease; Translations: [Chronic kidney disease, stage III (moderate)]Onset: 11-17-2021 Resolved: 14-21-8267Biqsavsmvu and other anemia (20 sources)Iron deficiency anemia; Translations: [Iron deficiency anemia, unspecified]Onset: 916592-63-0332AqkeccpwUfyimflhuwezt and screening for infectious disease (2 sources)Contact with and (suspected) exposure to other viral communicable diseases; Translations: [Encounter for screening for human papillomavirus (HPV)] Onset: 08-30-2021 Resolved: 92-89-9873DyrgwubzJqaamms and fatigue (20 sources)Malaise; Translations: [Other malaise]Onset: 12-05-2023 Resolved: 001692-70-1179AltpjixpOqjx disorders (20 sources)Mood disordersOnset: 470678-86-5593Rkshsgp (20 sources)Candidiasis of vagina; Translations: [Vaginal guero]Onset: 242094-51-1586RyjdvcvjVifwacwux of unspecified nature or uncertain behavior (20 sources)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; Translations: [Neoplasm of uncertain behavior of other specified sites]Onset: 10-07-2024 80-21-2486HfozocegZgvrg aftercare (20 sources)Post-discharge follow-up; Translations: [Encounter for follow-up examination after completed treatment for conditions other than malignant neoplasm]Onset: 12-05-2023 Resolved: 714860-23-4506GcqerfolGfecf bone disease and musculoskeletal deformities (1 source)Other specified disorders of bone density and structure, right thigh; Translations: [OTH D/O BONE DEN STRUCT RT THIGH]Onset: 92-73-7265EeffpsgsItfex connective tissue disease (20 sources)History of total knee arthroplasty; Translations: [Presence of right artificial knee joint]Onset: 12-05-2023 Resolved: 924046-13-4625VmvnhtrMrtbz infections; including parasitic (20 sources)Personal history of other infectious and parasitic diseases; Translations: [History of COVID-19]Onset: 661304-40-6458OihstubaCaxfg injuries and conditions due to external causes (20 sources)At moderate risk for fall; Translations: [History of falling]Onset: 10-04-2023 Resolved: 715857-17-5036AfrmlwycQrzwa lower respiratory disease (4 sources)Respiratory disorder, unspecified; Translations: [RESPIRATORY DISORDER UNSPECIFIED]Onset: 89-56-0304JczqxncgXzmve lower respiratory disease (20 sources)Pneumonitis; Translations: [Other disorders of lung]Onset: 364438-03-7428GlvzbttyQhser lower respiratory disease (2 sources)Solitary pulmonary nodule; Translations: [Solitary pulmonary nodule] Onset: 49-17-9456FtystxamYwmye non-traumatic joint disorders (18 sources)Pain in right hip joint; Translations: [Pain in right hip]Onset: 585343-51-5264LbykfshpLuoen non-traumatic joint disorders (20 sources)Hip pain; Translations: [Pain in left hip]Onset: 10-04-2023 Resolved: 358767-52-2331SnzqtsguAazzh nutritional; endocrine; and metabolic disorders (20 sources)Hyperuricemia; Translations: [Hyperuricemia without signs of inflammatory arthritis and tophaceous disease]Onset: EpisodicOther screening for suspected conditions (not mental disorders or infectious disease) (20 sources)Encounter for screening mammogram for malignant neoplasm of breast; Translations: [Encounter for screening for malignant neoplasm of cervix]Onset: 67-84-8901JblwgukxUlfro upper respiratory disease (2 sources)Other specified diseases of upper respiratory tract; Translations: [Other specified diseases of upper respiratory tract]Onset: 17-40-0337Jeentmdm Other upper respiratory infections (5 sources)Acute upper respiratory infection, unspecified; Translations: [Viral URI J06.9]Onset: 08-30-2021 Resolved: 65-78-9646HzmmmxomAathiq media and related conditions (20 sources)Acute suppurative otitis media without spontaneous rupture of ear drum; Translations: [Acute suppurative otitis media without spontaneous rupture of ear drum, bilateral]Onset: 10-04-2023 Resolved: 175502-07-4772AquonkpwEsedewnwq (except that caused by tuberculosis or sexually transmitted disease) (20 sources)Pneumonia, unspecified organism; Translations: [Pneumonia, organism unspecified]Onset: 742498-56-5081YyncwqowJlshdgkb codes; unclassified (1 source)Asymptomatic menopausal state; Translations: [ASYMPTOMATIC MENOPAUSAL STATE]Onset: 46-44-9906WmbknuqvPcwbpiss codes; unclassified (20 sources)Postmenopausal state; Translations: [Asymptomatic menopausal state] Onset: 883344-93-8040QliyotuuOmqvbgpj codes; unclassified (20 sources)Viral syndrome; Translations: [Other general symptoms and signs] Onset: 01-02-2025 Resolved: 249549-86-1261ZfhtgujyCnqmmcsr codes; unclassified (20 sources)Bilateral lower limb edema; Translations: [Localized edema]Onset: 808499-71-8251CjbrgqtcTsnpykrjm and history of mental health and substance abuse codes (20 sources)Depression screening positive; Translations: [Encounter for screening for depression]Onset: 10-04-2023 Resolved: 873815-05-8215TyvajcfnEhya and subcutaneous tissue infections (20 sources)Pustule ; Translations: [Local infection of the skin and subcutaneous tissue, unspecified]Onset: 152202-80-2699OaxdkpnuXzbjsjprfpg; intervertebral disc disorders; other back problems (20 sources)Spinal stenosis of lumbar region; Translations: [Spinal stenosis, lumbar region without neurogenic claudication]Onset: 03-24-2023 Resolved: 02-56-8025NkhyqdapZaaaokatvxwp (1 source)CONTACT W/AND (SUSP) EXPOS COVID-19; Translations: [CONTACT W/AND (SUSP) EXPOS COVID-19]Onset: 70-64-3905Upexujdmvjtr (1 source)ACUTE COUGH; Translations: [ACUTE COUGH]Onset: 25-37-3020Rdksvstlirqj (1 source)CHRN KIDNEY DISEASE STG 3 UNSP; Translations: [CHRN KIDNEY DISEASE STG 3 UNSP]Onset: 79-03-2289Rrigk infection (20 sources)COVID-19; Translations: [Other specified viral infection]Onset: 930157-07-0950Aukzirqf Results Test NameValueInterpretationReference RangeFacilityGastrointestinal pathogens panel KAYLEE+probe (Stl)on [id number] JEJUNI, COLI (GASTROINTESTINAL)0 NOMS HealthcareCAMPYLOBACTER JEJUNI, COLI (GASTROINTESTINAL)Not detectedNOMS HealthcareCLOSTRIDIUM DIFFICILE (TOXIN A/B) (GASTROINTESTINAL)0[facility] CLOSTRIDIUM DIFFICILE (TOXIN A/B) (GASTROINTESTINAL)Not detectedNOMS Healthcare CLOSTRIDIUM VUKAANBEQCP8YVNA HealthcareCLOSTRIDIUM PERFRINGENSNot detectedNOMS HealthcareCRYPTOSPORIDIUM SPP (PARVUM, HOMINIS, RNA) (GASTROINTESTINAL)0NOMS HealthcareCRYPTOSPORIDIUM SPP (PARVUM, HOMINIS, RAN) (GASTROINTESTINAL)Not [...] (GASTROINTESTINAL)Not detectedNOMS HealthcareMICROSPORIDIUM (ENTEROCYTOZOON BIENEUSI, ENCEPHALITOZOON INTESTINALIS) (IT2QHFB Healthcare MICROSPORIDIUM (ENTEROCYTOZOON BIENEUSI, ENCEPHALITOZOON INTESTINALIS) (GANot [...] in non- AmericanOrdered By: Kaylene López on 37-98-0285NTU/1.73 sq M.predicted among non-blacks MDRD (S/P/Bld) [Vol rate/Area]47 mL/min/{1.73_m2}Low>=60 mL/min/1.73m 2FSelect Medical Cleveland Clinic Rehabilitation Hospital, BeachwoodLaboratory - Chemistry and Chemistry - challengeOrdered By: Kaylene López on 14-48-5711Eqghdbx [Mass/Vol]8.6 mg/dL8.5-10.1FSelect Medical Cleveland Clinic Rehabilitation Hospital, BeachwoodChloride [Moles/Vol]106 mmol/G45-639UjdhddcolKettering HealthCO2 [Moles/Vol]25.4 mmol/L21.0-32.0K[facility]tering HealthCreatinine [Mass/Vol]1.15 mg/dLHigh0.55-1.02Kettering HealthGFR/1.73 sq M.predicted MDRD (S/P/Bld) [Vol rate/Area]57 mL/min/{1.73_m2} Low>=60 mL/min/1.73m 2FSelect Medical Cleveland Clinic Rehabilitation Hospital, BeachwoodGlucose [Mass/Vol]137 mg/tWPcsv41-640GzhxroevtKettering HealthPotassium [Moles/Vol]3.3 mmol/L Low3.5-5.1FSycamore Medical Centerodium [Moles/Vol]144 mmol/Q589-912 [facility] HealthUrea nitrogen [Mass/Vol]6.0 mg/dLLow7.0-18.0 [facility] HealthUrea nitrogen/Creatinine [Mass ratio]5.2 mg/mg Lutheran Hospitalerum or plasma anion gap determinationOrdered By: Kaylene López on 73-08-3197Dbggu gap [Moles/Vol]15.9 mmol/LFSelect Medical Cleveland Clinic Rehabilitation Hospital, BeachwoodAmbulatory Visit Summaryon 31-20-5315Hpdvymdrub Visit SummaryAmbulatory Visit Summary DIANA CHAMPION :1955 [...] Amalia Stephens PA-C Where: [facility] [address] [address]- Medications What How Much When Instructions Unchanged [...] signed up for this yet, please contact [employer] at [phone] to get signed up today. Language Information Language assistance services are available as needed. [facility] HospitalUrology Office/Clinic Noteon 82-22-2498Uyyytzf Office/Clinic NoteUrology Office/Clinic Note Chief Complaint 3 [...] in no acute distress. Assessment/Plan CHF - [facility] [place] CKD - Joana COPD/Pulm - Samsa/Omballi. [...] urgency and UUI. VESIcare was stopped and Iphjpeln21 mg ER qd. BBSQ 27 UA today [...] day(s), # 30 tab(s), Refills(s) 4, Pharmacy: [id number], 163, cm, 07/22/25 8:42:00 EDT, Height/Length Dosing, 105.1, kg, 07/22/25 8:42:00 EDT, Weight Dosing 2. Mixed incontinence (N39.46: Mixed incontinence) UUI>DONNA -See #1 Ordered: mirabegron, 25 mg = 1 tab(s), Oral, Daily, X 30 day(s), # 30 tab(s), Refills(s) 4, Pharmacy: [id number], 163, cm, 07/22/25 8:42:00 [...] Urnls Dip Stick Auto w/o Microscopy POC 75555 Follow-up No qualifying data available Patient Education [...] CE - Cataract extrac (more content not included)...[facility] HospitalComment on above:Result Comment: Electronically Signed By: Kat MICHAUD, Amalia\.br\Date and Time Signed: 07/22/25 09:58 EDTGlomerular filtration rate (GFR) estimation in non- AmericanOrdered By: Kaylene López on 07-18-2025 GFR/1.73 sq M.predicted among non-blacks MDRD (S/P/Bld) [Vol rate/Area]40 mL/min/{1.73_m2}Low>=60 mL/min/1.73m 2FSelect Medical Cleveland Clinic Rehabilitation [facility], [place] Laboratory - Chemistry and Chemistry - challengeOrdered By: Kaylene López on 39-84-6661Jrqmnaf [Mass/Vol]8.7 mg/dL8.5-10.1FSelect Medical Cleveland Clinic Rehabilitation Hospital, [place] Chloride [Moles/Vol]104 mmol/D07-556VkfnxeopaKettering HealthCO2 [Moles/Vol]26.8 mmol/L21.0-32.0K[facility]tering HealthCreatinine [Mass/Vol]1.33 mg/dLHigh0.55-1.02K[facility]tering HealthGFR/1.73 sq M.predicted MDRD (S/P/Bld) [Vol rate/Area]48 mL/min/{1.73_m2}Low>=60 mL/min/1.[address] [place], [place] [address]Glucose [Mass/Vol]164 mg/dLHigh 74-106K[facility]tering HealthMagnesium [Mass/Vol]1.8 mg/dL1.8-2.4 [facility] HealthPotassium [Moles/Vol]3.3 mmol/LLow3.5-5.1 [facility] Hospitalodium [Moles/Vol]141 mmol/L101-743LetgppofmKettering HealthUrea nitrogen [Mass/Vol]15.0 mg/dL7.0-18.0K[facility]tering HealthUrea nitrogen/Creatinine [Mass ratio]11.3 mg/mgLutheran Hospitalerum or plasma anion gap determinationOrdered By: Kaylene López on 31-49-6055Cuhhp gap [Moles/Vol]13.5 mmol/LFSelect Medical Cleveland Clinic Rehabilitation Hospital, BeachwoodGlomerular filtration rate (GFR) estimation in non- Ordered By: Nicolas Dickinson on 44-78-7231VFB/1.73 sq M.predicted among non-blacks MDRD (S/P/Bld) [Vol rate/Area]56 mL/min/{1.73_m2}Low>=60 mL/min/1.[address] [place], [place] [address]Laboratory - Chemistry and Chemistry - challengeOrdered By: Nicolas Dickinson on 39-53-9943Iazwjfc [Mass/Vol]8.7 mg/dL8.5-10.1FSelect Medical Cleveland Clinic Rehabilitation Hospital, BeachwoodChloride [Moles/Vol]106 mmol/R62-564BvoampovyKettering HealthCO2 [Moles/Vol]29.3 mmol/L21.0-32.0K[facility]tering HealthCreatinine [Mass/Vol]0.99 mg/dL0.55-1.02[facility] GFR/1.73 sq M.predicted MDRD (S/P/Bld) [Vol rate/Area]mL/min/{1.73_m2}>=60 mL/min/1.73m 2FSelect Medical Cleveland Clinic Rehabilitation Hospital, BeachwoodGlucose [Mass/Vol]206 mg/dLHigh 74-106K[facility]tering HealthMagnesium [Mass/Vol]2.1 mg/dL1.8-2.4 [facility] HealthPotassium [Moles/Vol]4.1 mmol/L3.5-5.1FSycamore Medical Centerodium [Moles/Vol]143 mmol/S863-687EyxaipddvKettering HealthUrea nitrogen [Mass/Vol]19.0 mg/dLHigh7.0-18.0Kettering HealthUrea nitrogen/Creatinine [Mass ratio]19.2 mg/mgLutheran Hospitalerum or plasma anion gap determinationOrdered By: Nicolas Dickinson on 24-14-9998Omirg gap [Moles/Vol]11.8 mmol/LFSelect Medical [facility] Clinic Rehabilitation Hospital, BeachwoodXR Hip - right 3 Viewson 43-14-3874[address] [address] XRay Report Signed Patient: DIANA CHAMPION MR#: [id number] : 1955 Acct:[id number] Age/Sex: 69 / F ADM Date: 04/30/25 Loc: RAD Attending Dr: Jose Saucedo 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 04/30/2025 1:46 PM Dictation Location: [place] [address] Electronically authenticated by: [id number] Y Date: 04/30/2025 13:46 Dictated By: Marcos Medina M.D. Signed By: 04/30/25 1349 DD/ 1346 TD/TT: Marketing Compliance Manager:TBHRadiology, Radiologist, - 04/30/2025 [place] [address] XRay Report Signed Patient: DIANA CHAMPION MR#: [id number] : 1955 Acct:[id number] Age/Sex: 69 / F ADM Date: 04/30/25 Loc: NAKITA Attending Dr: Jose Saucedo NP Ordering Physician: Jose Saucedo NP Date of Service: 04/30/25 Procedure(s): XR hip RT min 2V Accession Number(s): [id number] cc: Kaylene López NP; Jose Saucedo NP [place] [phone] Patient Name: DIANA CHAMPION MRN: [id number] date: 1955 Sex: F Assigned Patient Location: [facility] Current Patient Location: [facility] Accession/Order Number: [id number] Exam Date: 04/30/2025 13:45 Report Date: 04/30/2025 [...] Jr. DCarl 04/30/2025 1:46 PM Dictation Location: [place] [address] Electronically authenticated by: [id number] Y Date: 04/30/2025 13:46 Dictated By: Marcos Medina M.D. Signed By: 04/30/25 1349 DD/ 1346 TD/TT: Marketing Compliance Manager: WILL HealthcareRadiology Study observation (narrative)NOMS HealthcareXR Hip - right 3 ViewsOrdered By: Radiologist Radiology on 29-04-7444AAWZ Healthcare Work Phone: ambulatory Visit Summaryon 03-82-5366Njrtidfgvx Visit SummaryAmbulatory Visit Summary DIANA CHAMPION :1955 [...] MAG BLOUNT PA-C Where: [facility] [address] [place] [address]- Medications What How Much When Instructions Unchanged [...] you for choosing us for your care. [facility] HospitalUrology Office/Clinic Noteon 96-37-6947Utglkjc Office/Clinic NoteUrology Office/Clinic Note Chief Complaint 5 [...] IR BID. Pt currently rehabbing at [facility] d/t double pneumonia. Has been there x1 week, plan is to hopefully return home within the next week or so. F/u 3 mos to assess efficacy. Ordered: Body Mass Index (BMI) documented 3008F Current tobacco non-user 1036F Depression Screening Negative 3352F E&M of Est. Patient Moderate 30-39 Min 73650 Medication list documented in medical record 1159F [...] Never., 10/15/2024 Substance Abuse (more content not included)...[facility] Comment on above:Result Comment: Electronically Signed By: JOSE ALEJANDRO MICHAUD, MAG Hester\.br\Date and Time Signed: 03/24/2510:44 EDTMG Breast - bilateral Screeningon 58-66-3077Zce[place] [address] Mammography Report Signed Patient: DIANA CHAMPION MR#: [id number] : 1955 Acct:[id number] Age/Sex: 69 / F ADM Date: 03/03/25 Loc: MAMMO Attending Dr: Kaylene López NP Ordering Physician: Kaylene López NP Results: Date of Service: 03/03/25 Follow Up: Procedure(s): MM screening mammo BI Accession Number(s): [id number] cc: Kaylene López NP Patient Name: DIANA CHAMPION MR#: [id number] : 1955 Exam Date: 03/03/2025 Ordering Doctor: CLEO López TOW MOTOR OPERATOR RADIOLOGY REPORT PROCEDURE: MM SCREENING MAMMO BI [...] Family Cancers None LOCATION: [facility] BREAST COMPOSITION: The breasts are almost [...] Signed By: 03/03/25 164 DD/ 41 TD/TT: Marketing Compliance Manager:TBHRadiology, Radiologist, - 03/03/2025 [place] [address] Mammography Report Signed Patient: DIANA CHAMPION MR#: [id number] : 1955 Acct:[id number] Age/Sex: 69 / F ADM Date: 03/03/25 Loc: MAMMO Attending Dr: Kaylene López NP Ordering Physician: Kaylene López NP Results: Date of Service: 03/03/25 Follow Up: Procedure(s): MM screening mammo BI Accession Number(s): [id number] cc: Kaylene López NP Patient Name: DIANA CHAMPION MR#: [id number] : 1955 Exam Date: 03/03/2025 Ordering Doctor: [...] Family Cancers None LOCATION: [facility] BREAST COMPOSITION: The breasts are almost [...] M.D. Signed By: 03/03/251642 DD/ 41 TD/TT: Marketing Compliance Manager: NOMS HealthcareRadiology Study observation (narrative)[facility] Breast - bilateral ScreeningOrdered By: Radiologist Radiology on 53-88-2545YBPZCitizens Memorial Healthcare Work Phone: Office Visiton 55-79-3057Tnlsto-up [id number] Diana Champion 1955 F Date Provider Department Center 01/23/2025 271-LOYDA, EHAB CARD [facility] Family History Problem Relation Age of Onset Heart failure Mother Heart disease Father Family Status - Relation Status Age at Mother Father Level of Service:29513 [place] OFFICE/OUTPATIENT ESTABLISHED LOW MDM 20 [facility] HospitalLaboratory - Microbiology and Antimicrobial susceptibilityon 50-82-1579WWNQ-CoV-2 (COVID-19) RNA KAYLEE+probe Ql (Unsp spec) NegativeChildren's Mercy Northland Panel Informationon 43-48-5084AJL ANegativeNOMS HealthcareFLU BNegativeNOIL HealthcareInterpretation and review of laboratory resultsNormalCape Fear Valley Hoke HospitalXR Hip - right 3 Viewson 12-17-2024 Imaging Result: AP and Lateral right hip No acute fracture Mild SI joint arthritic changes Pt has severe arthritis to right hip joint with subchondral cyst and sclerosis to femoral head and acetabulum. Stable hardware left hip on AP view Impression: Severe right hip arthritis.[facility] Hoke HospitalRadiology Study observation (narrative)Citizens Memorial HealthcareXR Knee - right 1 or 2 Viewson 08-96-3611Lowhtzf Result: AP and Lateral of right knee: Surgical position and alignment of prosthetic components without evidence of loosening or wear to femora, tibial or patellar components, The alignment appears to be anatomic. No evidence of accelerated or asymmetric wear to tibial tray or patella button. No evidence of fracture or dislocation. Impression: Unremarkable right total knee arthroplastyNOWinnebago Mental Health InstituteRadiology Study observation (narrative)[facility] Panel Informationon 74-16-5705Trstxpzlgd: simple Destruction method: cryotherapy Informed consent: discussed and consent obtained Informed consent comment: The risks of the procedure were discussed, including, but not limited to risks of scarring, darker or wire frame lampshade maker pigmentary changes, recurrence, infection, and incomplete removal [...] or tenderness. Additional details: Previous accession number: [id number] Memorial HealthcareNo Panel InformationOrdered By: Pat Mcfarland on 88-61-5483CJBP efw-suhl Work Phone: abstracton [id number] Diana Champion 1955 F Date Provider Department Center 10/24/2024 EMELIA MORALES ONC DCC Family History Problem Relation Age of Onset Heart failure Mother Heart disease Father Family Status - Relation Status Age at Mother FatherNormalUniversity of The [facility] Urineon 39-34-5763Glibhwsm identified Cx Nom (U)Microbiology PROCEDURE: Urine Culture [...] Locations R1: This test was performed at: [facility], [address] [place] [address], [address]- , , EmuvmcOwudybFort Hamilton HospitalComment on above:Performed By: #### [id number] #### [facility] [address] [place] [address]Tfszysvulk Visit Summaryon 00-39-5262Oohsjfeasc Visit Summary Ambulatory Visit Summary DIANA CHAMPION [...] MICHAUD, MAG Hester Where: [facility] [address] [place] [address]- Medications What How Much When Instructions Unchanged [...] you for choosing us for your care. [facility] HospitalNo Panel Informationon 31-21-7953Mije of biopsy: tangential Informed consent: discussed and [...] Photo taken Amount of lidocaine used: 0.5 [facility]on [facility]ed to [facility]. Ticker put in for Nov 2024 for patient to be scheduled with Dr. Church.[facility]36on 72-46-037126Kqvnvvn called requesting clearance prior to cataract surgery. 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 Please advise. Thanks.German HospitalEPITHELIAL CELLSon 09-71-7149Mkxfgnwhov cells LM Ql (Urine sed) Epithelial Cells Few [facility] HealthcareNo Panel Informationon 39-60-2810MGZRNGTDUUQJS HealthcareRESULT 1 on 01-81-1576VITSDN 1 Result 1 Moderate budding yeast present. NOMS HealthcareRESULT 2on 02-47-6945IPJRFJ 2 Result 2 Few gram positive cocci NOMS HealthcareRESULT 3on 99-17-1251LXMIRA 3 Result 3 STAKE DRIVER NOMS HealthcareRESULT 4on 66-21-8983EQPKNV 4 Result 4 STAKE DRIVER NOMS HealthcareWHITE BLOOD CELLSon 33-23-8917WNIXN BLOOD CELLS White Blood Cells NOMUniversity HospitalWHITE BLOOD CELLSFewCitizens Memorial HealthcareALL CBC WITH AUTO DIFFon 07-13-4609YWSHIPXXU ABSOLUTE AUTO0.1NOMS HealthcareBasophils/100 WBC (Bld)0.5 % 0.2 - 2.0 %NOMS [facility] HospitalEosinophils/100 WBC (Bld)1.5 %0.9 - 7.0 %Citizens Memorial HealthcareErythrocyte distribution width (RBC) [Ratio]13.0 %11.0 - 15.0 %Citizens Memorial HealthcareHematocrit (Bld) [Volume fraction]39.0 %36.0 - 48.0 %[facility] Hemoglobin (Bld) [Mass/Vol]12.2 g/dL12.0 - 16.0 g/dLCitizens Memorial HealthcareIMMATURE GRANULOCYTES ABS AUTO0.22HighNOSSM RehabImmature granulocytes/100 WBC (Bld) 2.4 %High0.0 - 0.5 %Citizens Memorial HealthcareInterpretation and review of laboratory resultsAbnormalNOSSM RehabLYMPHOCYTES ABSOLUTE AUTO1.6NOMS [facility] Lymphocytes/100 WBC (Bld)17.2 %Low20.5 - 60.0 %[facility] HospitalH (RBC) [Entitic mass]29.7 pg26.7 - 34.0 pgScotland County Memorial HospitalHC (RBC) [Mass/Vol]31.3 g/dL29.9 - 35.2 g/dLScotland County Memorial HospitalV (RBC) [Entitic vol]94.9 fL81.0 - 99.0 fLCitizens Memorial HealthcareMONOCYTES ABSOLUTE AUTO0.8NOMS HealthcareMonocytes/100 WBC (Bld)8.3 % 1.7 - 12.0 %Citizens Memorial HealthcareNEUTROPHILS ABSOLUTE AUTO6.4NOMS Healthcare Neutrophils/100 WBC (Bld)70.1 %43.0 - 75.0 %Citizens Memorial HealthcarePlatelet mean volume (Bld) [Entitic vol]8.8 fLLow9.5 - 13.5 fLNOMS HealthcareTB EO #0.1NOMS HealthcareTBH ZTE765TIRR HealthcareTB RBC4.11LowNOMS HealthcareTBH WBC9.1NOMS HealthcareCLINISYNCNOMS HealthcareTelemedicineon [id number] Diana Champion 1955 Provider Department Center 07/11/2024 Nicholas-EMELIA YOO ONC DCC Family History Problem Relation Age of Onset Heart failure Mother Heart disease Father Family Status - Relation Status Age at Mother Father Level of Service:54400 [place] PHYS/QHP TELEPHONE EVALUATION 21-30 MIN () Reason for Visit and Comments: Telehealth Phone Visit [892] - Tracheobronchomalacia follow up per Dr Cnaseco. NormalUniWayne Hospital 58-46-0182QLA&P reviewed. The patient was examined and there [...] focal deficit PSYCH: appropriate mood, affect, and judgement.NormalUnSt. Anthony's HospitalNURSNOTEon 68-44-3394BRGIMQIFOhwpwk up at Pulmonary Medicine [place] with Matthew Vargas May resume a Regular Diet and home medications.NormalUnSt. Anthony's HospitalNURSNOTEBronchoscopy Findings: TracheobronchomalaciaNormal Good Samaritan HospitalTelephoneon [id number] Diana Champoin 1955 Provider Department Center 06/27/2024 SOURAV DAVID ONC DCC Family History Problem Relation Age of Onset Heart failure Mother Heart disease Father Family Status - Relation Status Age at Mother FatherNormalUniversClinton Memorial HospitalPrep for Procedureon 06-26-2024 Prep for [id number] Diana Champion 1955 F Date Provider Department Center 06/26/2024 [facility]ELIA MORALES [facility] History Problem Relation Age of Onset Heart failure Mother Heart disease Father Family Status - Relation Status Age at Mother FatherNormalUniversClinton Memorial HospitalHPon 08-20-1232RX Attestation signed by Emelia Yoo MD at [...] Age: 68 y.o. : 1955 Account No.: [id number] Referring physician: Dr. Bo Mcclain Chief complaint: Recurreny pneumonia HPI Diana hCampion is a 68 y.o. female with PMHx of reportedly COPD, chronic hypoxic respiratory failure on 2L home O2 who is presenting to clinic as a new patient after being referred by Dr. Bo Baker of [facility]. Patient has been admitted 4 times [...] years. 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 Her family history is positive for COPD [...] Past Medical History: Diagnosis Date Asthma Cancer ([facility]) COPD (chronic obstructive pulmonary disease) ([facility]) Coronary artery disease GERD (gastroesophageal [...] mouth every other day. 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 CT DONE 04-11-24 AND 06-07-[address] [facility]. RECORDS SCANNED INTO MEDIA. FILMS REQUESTED- requested 3 times and [employer] IS DOWN. Could not get films.Normal Good Samaritan HospitalCA ECHO DOPPLER COMPLETEon 61-16-8172Ppv [address] [address] Cardiology Report Signed Patient: DIANA CHAMPION MR#: [id number] : 1955 Acct:[id number] Age/Sex: 68 / F ADM Date: 05/28/24 Loc: CARD Attending Dr: Nasim Church M.D. Ordering Physician: Nasim Church M.D. Date of Service: 05/28/24 Procedure(s): CA echo doppler complete Accession Number(s): [id number] cc: Nasim Church M.D.; Shaikh Eva Ohara Patient Name: DIANA CHAMPION MR#: [id number] : 1955 Exam Date: 05/28/2024 Ordering Doctor: [...] not included)...TBHRadiology, Radiologist, MD - 05/29/2024 [place] [address] Cardiology Report Signed Patient: DIANA CHAMPION MR#: [id number] : 1955 Acct:[id number] Age/Sex: 68 / F ADM Date: 05/28/24 Loc: CARD Attending Dr: Nasim Church M.D. Ordering Physician: Nasim Church M.D. Date of Service: 05/28/24 Procedure(s): CA echo doppler complete Accession Number(s): [id number] cc: Nasim Church M.D.; Shaikh Eva Ohara Patient Name: DIANA CHAMPION MR#: [id number] : 1955 Exam Date: 05/28/2024 Ordering Doctor: [...] Dictated By: ALICIA LIMON Signed By: 05/29/24 155 DD/ 1540 TD/TT: Marketing Compliance Manager: WILL HealthcareRadiology Study observation (narrative)WILL ShearerCA ECHO DOPPLER COMPLETEOrdered By: Radiologist Radiology on 89-40-1781RLRQ Healthcare Work Phone: Office Visiton 36-40-0301Boahpr-up [id number] Diana Champion 1955 F Date Provider Department Center 05/13/[address] [place] [address] Family History Problem Relation Age of Onset Heart failure Mother Heart disease Father Family Status - Relation Status Age at Mother Father Level of Service:22555 [place] OFFICE/OUTPATIENT ESTABLISHED MOD MDM 30 [facility] HospitalXR CHEST 2Von 31-39-1349HyaCo[place] [address] XRay Report Signed Patient: DIANA CHAMPION MR#: [id number] : 1955 Acct:[id number] Age/Sex: 68 / F ADM Date: 04/03/24 Loc: RAD Attending Dr: Shaikh Lev Velasquez Ordering Physician: Shaikh Eva Ohara Date of Service: 04/03/24 Procedure(s): XR chest 2V Accession Number(s): [id number] cc: Shaikh Eva Ohara [address] [address] Patient Name: DIANA CHAMPION MRN: [id number]:[id number] date: 1955 Sex: F Assigned Patient Location: [facility] Current Patient Location: [facility] Accession/Order Number: [id number] Exam Date: 04/03/2024 15:40 Report Date: 04/03/2024 [...] Signed By: 04/03/24 1630 DD/ 1627 TD/TT: Marketing Compliance Manager:TBHRadiology, Radiologist, - 04/03/2024 [place] [address] XRay Report Signed Patient: DIANA CHAMPION MR#: [id number] : 1955 Acct:[id number] Age/Sex: 68 / F ADM Date: 04/03/24 Loc: RAD Attending Dr: Shaikh Lev Velasquez Ordering Physician: Shaikh Eva Ohara Date of Service: 04/03/24 Procedure(s): XR chest 2V Accession Number(s): [id number] cc: Shaikh Eva Ohara The [address] [address] Patient Name: DIANA CHAMPION MRN: [id number]:[id number] date: 1955 Sex: F Assigned Patient Location: RAD Current Patient Location: RAD Accession/Order Number: [id number] Exam Date: 04/03/2024 15:40 Report Date: 04/03/2024 [...] Signed By: 04/03/24 1630 DD/ 1627 TD/TT: Marketing Compliance Manager: NOMS HealthcareRadiology Study observation (narrative)NOMS HealthcareXR CHEST 2V Ordered By: Radiologist Radiology on 32-13-6444RUNE Healthcare Work Phone: XR CHEST 2Von 03-59-9694Vyq[place], [place] [address] XRay Report Signed Patient: DIANA CHAMPION MR#: [id number] : 1955 Acct:[id number] Age/Sex: 68 / F ADM Date: 03/27/24 Loc: RAD Attending Dr: Shaikh Lev Velasquez Ordering Physician: Shaikh Eva Ohara Date of Service: 03/27/24 Procedure(s): XR chest 2V Accession Number(s): [id number] cc: Shaikh Eva Ohara [address] [address] Patient Name: DIANA CHAMPION MRN: [facility]:[id number] date: 1955 Sex: F Assigned Patient Location: RAD Current Patient Location: RAD Accession/Order Number: [id number] Exam Date: 03/27/2024 14:40 Report Date: 03/27/2024 [...] Signed By: 03/27/24 1605 DD/ 1602 TD/TT: Marketing Compliance Manager:AMINTAHRadiology, Radiologist, - 03/27/2024 [place] [address] XRay Report Signed Patient: DIANA CHAMPION MR#: [id number] : 1955 Acct:[id number] Age/Sex: 68 / F ADM Date: 03/27/24 Loc: RAD Attending Dr: Shaikh Lev Velasquez Ordering Physician: Shaikh Eva Ohara Date of Service: 03/27/24 Procedure(s): XR chest 2V Accession Number(s): [id number] cc: Shaikh Eva Ohara The [address] [address] Patient Name: DIANA CHAMPION MRN: [facility]:[id number] date: 1955 Sex: F Assigned Patient Location: RAD Current Patient Location: RAD Accession/Order Number: [id number] Exam Date: 03/27/2024 14:40 Report Date: 03/27/2024 [...] Signed By: 03/27/24 1605 DD/ 1602 TD/TT: Marketing Compliance Manager: WILL HealthcareRadiology Study observation (narrative)NOM HealthcareXR CHEST 2V Ordered By: Radiologist Radiology on 68-63-6762XLCH Healthcare Work Phone: XR THORACIC SPINE 3Von 69-02-7904[address] [address] XRay Report Signed Patient: DIANA CHAMPION MR#: [id number] : 1955 Acct:[id number] Age/Sex: 68 / F ADM Date: 03/26/24 Loc: RAD Attending Dr: Jose Saucedo NP Ordering Physician: Jose Saucedo NP Date of Service: 03/26/24 Procedure(s): XR thoracic spine 3V Accession Number(s): [id number] cc: Shaikh Eva Ohara; Jose Saucedo NP [address] [place] [id number] Patient Name: DIANA CHAMPION MRN: [id number] date: 1955 Sex: F Assigned Patient Location: [facility] Current Patient Location: Accession/Order Number: [id number] Exam Date: 03/26/2024 15:13 Report Date: 03/27/2024 07:50 At the request of: JOSE SAUCEOD Procedure: XR thoracic spine 3V EXAMINATION: XR [...] Signed By: 03/27/24 0753 DD/ 0750 TD/TT: Marketing Compliance Manager:TBHRadiology, Radiologist, MD - 03/27/2024 [place] [address] XRay Report Signed Patient: DIANA CHAMPION MR#: [id number] : 1955 Acct:[id number] Age/Sex: 68 / F ADM Date: 03/26/24 Loc: RAD Attending Dr: Jose Saucedo NP Ordering Physician: Jose Saucedo NP Date of Service: 03/26/24 Procedure(s): XR thoracic spine 3V Accession Number(s): [id number] cc: Shaikh Eva Ohara; Jose Saucedo NP The [place] [id number] Patient Name: DIANA CHAMPION MRN: TBH:[id number] date: 1955 Sex: F Assigned Patient Location: [facility] Current Patient Location: Accession/Order Number: [id number] Exam Date: 03/26/2024 15:13 Report Date: 03/27/2024 [...] Signed By: 03/27/24 0753 DD/ 075 TD/TT: Marketing Compliance Manager: WILL HealthcareRadiology Study observation (narrative)[facility] HealthcareXR THORACIC SPINE 3VOrdered By: Radiologist Radiology on 83-14-8692AINR efw-suhl Work Phone: Erythrocyte distribution width Auto (RBC) [Ratio]on 06-23-9270Xxbolrhoubi distribution width (RBC) [Ratio]13.2 %11.0-15.0Kettering HealthEstimated glomerular filtration rate (GFR) non- Americanon 63-24-5350YLL/1.73 sq M.predicted among non-blacks MDRD (S/P/Bld) [Vol rate/Area]57 mL/min/{1.73_m2}>=60[facility] Hematocrit Auto (Bld) [Volume fraction]on 30-83-7788Fbgjzwbchq (Bld) [Volume fraction]38.7 %36.0-48.0K[facility]tering HealthHemoglobin [Mass/volume] in Bloodon 61-34-6417Qqkdbututs (Bld) [Mass/Vol]12.2 g/dL12.0-16.0 [facility] HealthLaboratory - Chemistry and Chemistry - challengeon 92-09-6619Rbaupam [Mass/Vol]3.0 g/dL3.4-5.0[facility] HealthCalcium [Mass/Vol]8.8 mg/dL8.5-10.1FSelect Medical Cleveland Clinic Rehabilitation Hospital, BeachwoodChloride [Moles/Vol]104 mmol/Q72-494HprumhrwaKettering HealthCO2 [Moles/Vol]32.2 mmol/L21.0-32.0[facility] HealthCreatinine [Mass/Vol]0.97 mg/dL0.55-1.02K[facility]tering HealthGFR/1.73 sq M.predicted MDRD (S/P/Bld) [Vol rate/Area]mL/min/{1.73_m2}>=60K[facility] HealthGlucose [Mass/Vol]67 mg/rB86-522WemksypxxKettering Health Magnesium [Mass/Vol]1.9 mg/dL1.8-2.4FSelect Medical Cleveland Clinic Rehabilitation Hospital, BeachwoodPotassium [Moles/Vol]3.4 mmol/L3.5-5.1FSycamore Medical Centerodium [Moles/Vol] 143 mmol/C584-167YfcbmifhxKettering HealthUrate [Mass/Vol]5.0 mg/dL 2.6-6.0K[facility]tering HealthUrea nitrogen [Mass/Vol]16.0 mg/dL 7.0-18.0[facility]tering HealthUrea nitrogen/Creatinine [Mass ratio] 16.5 mg/mgKettering HealthLeukocytes [#/volume] corrected for nucleated erythrocytes in Blood by Automated counon 79-96-9775TRA corrected for nucl RBC Auto (Bld) [#/Vol]8.1 10 3/uL4.0-11.0[facility] MCH Auto (RBC) [Entitic mass]on 63-21-1380WIP (RBC) [Entitic mass]30.4 pg 26.7-34.0K[facility]tering HealthMCHC Auto (RBC) [Mass/Vol]on 14-54-5478QJOT (RBC) [Mass/Vol]31.5 g/dL29.9-35.2FSelect Medical Cleveland Clinic Rehabilitation Hospital, BeachwoodMCV Auto (RBC) [Entitic vol]on 07-46-1020SMB (RBC) [Entitic vol]96.5 fL 81.0-99.0Kettering HealthNo Panel Informationon 70-08-7633Izyen Random Yruateoqzi95.27 mg/dL20.00-300.00Kettering HealthUrine Random Total Protein<6.0 mg/dL<=11.9[facility]25-Hydroxy Vitamin D Total37.1 ng/mLKettering HealthComment on above:<20 ng/mL Vit D -<30 ng/mL Vit D sbueyobwaxra84-835 ng/mL Vit D sufficient>100 ng/mL Potential ToxicityParathyroid Hormone (Intact)36 pg/mL15-65 Kettering HealthComment on above:Performed at: - [facility] [id number] Director: Raphael Marrero PhD, Phone: [phone] Level3.2 mg/dL2.6-4.7FSelect Medical Cleveland Clinic Rehabilitation Hospital, BeachwoodPlatelet mean volume Auto (Bld) [Entitic vol]on 84-96-0714Oaotfzbt mean volume (Bld) [Entitic vol]9.1 fL9.5-13.5FSelect Medical [facility] Clinic Rehabilitation Hospital, Beachwood Platelets Auto (Bld) [#/Vol]on 69-30-7292Oyajtywac (Bld) [#/Vol]247 10 3/uL 150-450Kettering HealthRBC Auto (Bld) [#/Vol]on 09-91-3359SLZ (Bld) [#/Vol]4.01 10 6/uL4.20-5.40Lutheran Hospitalerum or plasma anion gap determinationon 19-01-8255Etdon gap [Moles/Vol]10.2 mmol/L Kettering HealthMM TOMOSYNTHESIS SCREENING BIon 88-43-8778DvxCoahoma, [place] [address] Mammography Report Signed Patient: DIANA CHAMPION MR#: [id number] : 1955 Acct:[id number] Age/Sex: 68 / F ADM Date: 02/28/24 Loc: MAMMO Attending Dr: Kaylene López NP Ordering Physician: Kaylene López NP Results: Date of Service: 02/28/24 Follow Up: Procedure(s): MM tomosynthesis screening BI Accession Number(s): [id number] cc: Kaylene López NP; Shaikh Eva Ohara Patient Name: DIANA CHAMPION MR#: [id number] : 1955 Exam Date: 02/28/2024 Ordering Doctor: [...] Family Cancers None LOCATION: [facility] BREAST COMPOSITION: The breasts are almost [...] Signed By: 02/29/24 1602 DD/ 1601 TD/TT: Marketing Compliance Manager:TBHRadiology, Radiologist, MD - 02/29/2024 [place] [address] Mammography Report Signed Patient: DIANA CHAMPION MR#: [id number] : 1955 Acct:[id number] Age/Sex: 68 / F ADM Date: 02/28/24 Loc: MAMMO Attending Dr: Kaylene López NP Ordering Physician: Kaylene López NP Results: Date of Service: 02/28/24 Follow Up: Procedure(s): MM tomosynthesis screening BI Accession Number(s): [id number] cc: Kaylene López STAKE DRIVER; Shaikh Eva Ohara Patient Name: DIANA CHAMPION MR#: [id number] : 1955 Exam Date: 02/28/2024 Ordering Doctor: [...] Family Cancers None LOCATION: [facility] BREAST COMPOSITION: The breasts are almost [...] Signed By: 02/29/24 1602 DD/ 1601 TD/TT: Marketing Compliance Manager: [facility] HOSPITALKathy HealthcareRadiology Study observation (narrative)[facility] TOMOSYNTHESIS SCREENING BIOrdered By: Radiologist Radiology on 37-56-2016PPPU efw-suhl Work Phone: MR LUMBAR SPINE WO CONon [phone], [place] [address] Magnetic Resonance Report Signed Patient: DIANA CHAMPION MR#: [id number] : 1955 Acct:[id number] Age/Sex: 68 / F ADM Date: 02/13/24 Loc: MRI Attending Dr: Shaikh Lev Velasquez Ordering Physician: Shaikh Eva Ohara Date of Service: 02/13/24 Procedure(s): MR lumbar spine wo con Accession Number(s): [id number] cc: Shaikh Eva Ohara [place] [address] Patient Name: DIANA CHAMPION MRN: [facility]:[id number] date: 1955 Sex: F Assigned Patient Location: MRI Current Patient Location: MRI Accession/Order Number: [id number] Exam Date: 02/13/2024 10:45 Report Date: 02/13/2024 [...] Signed By: 02/13/24 1408 DD/ 1406 TD/TT: Marketing Compliance Manager:TBHRadiology, Radiologist, - 02/13/2024 [place] [address] Magnetic Resonance Report Signed Patient: DIANA CHAMPION MR#: [id number] : 1955 Acct:[id number] Age/Sex: 68 / F ADM Date: 02/13/24 Loc: MRI Attending Dr: Shaikh Lev Velasquez Ordering Physician: Shaikh Eva Ohara Date of Service: 02/13/24 Procedure(s): MR lumbar spine wo con Accession Number(s): [id number] cc: Shaikh Eva Ohara [address] [place] [address] Patient Name: DIANA CHAMPION MRN: [id number] date: 1955 Sex: F Assigned Patient Location: MRI Current Patient Location: MRI Accession/Order Number: [id number] Exam Date: 02/13/2024 10:45 Report Date: 02/13/2024 [...] Signed By: 02/13/24 1408 DD/ 1406 TD/TT: Marketing Compliance Manager: WILL HealthcareRadiology Study observation (narrative)[facility] LUMBAR SPINE WO CONOrdered By: Radiologist Radiology on 23-40-5836[facility] Work Phone: XR CHEST 1 Von [phone] [address] XRay Report Signed Patient: DIANA CHAMPION MR#: [id number] : 1955 Acct:[id number] Age/Sex: 68 / F ADM Date: Loc: ER Attending Dr: Ordering Physician: Tere Rodriguez Date of Service: 02/03/24 Procedure(s): XR chest 1V Accession Number(s): [id number] cc: Shaikh Eva Ohara; Tere Rodriguez [address] [place] [address] Patient Name: DIANA CHAMPION MRN: [id number] date: 1955 Sex: F Assigned Patient Location: ED.MAIN Current Patient Location: ER Accession/Order Number: [id number] Exam Date: 02/03/2024 09:15 Report Date: 02/03/2024 [...] M.D. Signed By: 02/03/24942 DD/ 0 TD/TT: Marketing Compliance Manager:AMINTAHRadiology, Radiologist, - 02/07/2024 [place] [address] XRay Report Signed Patient: DIANA CHAMPION MR#: [id number] : 1955 Acct:[id number] Age/Sex: 68 / F ADM Date: Loc: ER Attending Dr: Ordering Physician: Tere Rodriguez Date of Service: 02/03/24 Procedure(s): XR chest 1V Accession Number(s): [id number] cc: Shaikh Eva Ohara; Tere Rodriguez [address] [address] Patient Name: DIANA CHAMPION MRN: [facility]:[id number] date: 1955 Sex: F Assigned Patient Location: ED.MAIN Current Patient Location: ER Accession/Order Number: [id number] Exam Date: 02/03/2024 09:15 Report Date: 02/03/2024 [...] M.D. Signed By: 02/03/2443 DD/ 0 TD/TT: Marketing Compliance Manager: WILL HealthcareRadiology Study observation (narrative)[facility] HealthcareXR CHEST 1 VOrdered By: Radiologist Radiology on 55-65-8574[facility] Work Phone: XR LUMBAR SPINE 2 OR 3Von [phone] [address] XRay Report Signed Patient: DIANA CHAMPION MR#: [id number] : 1955 Acct:[id number] Age/Sex: 68 / F ADM Date: 01/25/24 Loc: RAD Attending Dr: Shaikh Lev Velasquez Ordering Physician: Shaikh Eva Ohara Date of Service: 01/25/24 Procedure(s): XR lumbar spine 2-3V Accession Number(s): [id number] cc: Shaikh Eva Ohara [address] [place] [address] Patient Name: DIANA CHAMPION MRN: [facility]:[id number] date: 1955 Sex: F Assigned Patient Location: [facility] Current Patient Location: Accession/Order Number: [id number] Exam Date: 01/25/2024 12:50 Report Date: 01/26/2024 [...] Signed By: 01/26/24 0741 DD/ 0739 TD/TT: Marketing Compliance Manager:MICHELLEadiology, Radiologist, - 01/26/2024 [place] [address] XRay Report Signed Patient: DIANA CHAMPION MR#: [id number] : 1955 Acct:[id number] Age/Sex: 68 / F ADM Date: 01/25/24 Loc: RAD Attending Dr: Shaikh Lev Velasquez Ordering Physician: Shaikh Eva Ohara Date of Service: 01/25/24 Procedure(s): XR lumbar spine 2-3V Accession Number(s): [id number] cc: Shaikh Eva Ohara [place] [address] Patient Name: DIANA CHAMPION MRN: [id number] date: 1955 Sex: F Assigned Patient Location: [facility] Current Patient Location: Accession/Order Number: [id number] Exam Date: 01/25/2024 12:50 Report Date: 01/26/2024 [...] Signed By: 01/26/24 0741 DD/ 0739 TD/TT: Marketing Compliance Manager: WILL HealthcareRadiology Study observation (narrative)[facility] HealthcareXR LUMBAR SPINE 2 OR 3VOrdered By: Radiologist Radiology on 00-24-7459FCHT Healthcare Work Phone: XR CHEST 2Von [phone] [address] [address] XRay Report Signed Patient: DIANA CHAMPION MR#: [id number] : 1955 Acct:[id number] Age/Sex: 68 / F ADM Date: 10/25/23 Loc: RAD Attending Dr: Bo Mcclain D.O. Ordering Physician: Bo Mcclain D.O. Date of Service: 10/25/23 Procedure(s): XR chest 2V Accession Number(s): [id number] cc: Shaikh Eva Ohara; Bo Mcclain D.O. The [address] [address] Patient Name: DIANA CHAMPION MRN: [id number] date: 1955 Sex: F Assigned Patient Location: [facility] Current Patient Location: [facility] Accession/Order Number: [id number] Exam Date: 10/25/2023 09:31 Report Date: 10/25/2023 [...] M.D. Signed By: 10/25/2348 DD/ 4 TD/TT: Marketing Compliance Manager:AMINTAHRadiology, Radiologist, - 10/25/[address] [address] XRay Report Signed Patient: DIANA CHAMPION MR#: [id number] : 1955 Acct:[id number] Age/Sex: 68 / F ADM Date: 10/25/23 Loc: RAD Attending Dr: Bo Mcclain D.O. Ordering Physician: Bo Mcclain D.O. Date of Service: 10/25/23 Procedure(s): XR chest 2V Accession Number(s): [id number] cc: Shaikh Eva Ohara; Bo Mcclain D.O. [place] [address] Patient Name: DIANA CHAMPION MRN: [id number] date: 1955 Sex: F Assigned Patient Location: [facility] Current Patient Location: [facility] Accession/Order Number: [id number] Exam Date: 10/25/2023 09:31 Report Date: 10/25/2023 [...] M.D. Signed By: 10/25/23947 DD/ 4 TD/TT: Marketing Compliance Manager: WILL HealthcareRadiology Study observation (narrative)[facility] HealthcareXR CHEST 2V Ordered By: Radiologist Radiology on 84-51-9391PZLT efw-suhl Work Phone: SYMPTOMATIC COVID-19 ANTIGENon 46-67-5230DNE Statement SEE BELOWCleveland Clinic Akron GeneralComment on above:Result Comment: This test has not [...] is revoked sooner.Performed By: #### CVDAGS #### [facility] [address] [place] [address] Dr. Shayne Fonseca-CoV-2 (COVID-19) RNA KAYLEE+probe Ql (Unsp spec)Positive AbnormalNEGATIVEThe [facility] HospitalComment on above:Performed By: #### CVDAGS #### [facility] [address] [place] [address] Dr. Shayne RoldanXR LSPINE 2_3 VIEWSon 14-23-2872CA LSPINE 2_3 VIEWSEXAMINATION: XR LSPINE 2_3 VIEWS [...] Electronically authenticated by: STEPH GRANADOS Date: 2023-03-24 12:52[facility] GeneralPT INTACTon 18-61-8792OJI, Pcqwun45 pg/mLCritically ugri94-00 [facility] HospitalComment on above:Performed By: #### PTHINT #### [facility] [address] [place] [address] Dr. Shayne RoldanHEMOGRAM AND PLATELon 45-73-8042Qdjietboua (Bld) [Volume fraction]44.4 %Krcent06.0-48.0The [facility] HospitalComment on above:Performed By: #### HH #### [facility] [address] [place] [address] Dr. Shayne RoldanHemoglobin (Bld) [Mass/Vol]14.5 g/pLSaemhj09.0-16.0The [facility] HospitalComment on above:Performed By: #### HH #### [facility] [address] [place] [address] Dr. Shayne SpearsH (RBC) [Entitic mass]30.3 aqEyblmw53.7-34.0The [facility] HospitalComment on above:Performed By: #### HH #### [facility] [address] [place] [address] Dr. Shayne SpearsHC (RBC) [Mass/Vol]32.7 g/hKMpznxo77.9-35.2The [facility] HospitalComment on above:Performed By: #### HH #### [facility] [address] [place] [address] Dr. Shayne SpearsV (RBC) [Entitic vol]92.9 zGQrlwhv85.0-99.0The [facility] HospitalComcorewell health blodgett hospital on above:Performed By: #### HH #### [facility] [address] [place] [address] Dr. Shayne RoldanPLT367 103/opVxyvjz095-157Cau [facility] HospitalComcorewell health blodgett hospital on above: Performed By: #### HH #### [facility] [address] [place] [address] Dr. Shayne RoldanRBC4.78 106/ulNormal4.20-5.40The [facility] HospitalComcorewell health blodgett hospital on above:Performed By: #### HH #### [facility] [address] [place] [address] Dr. Shayne RoldanWBC9.9 103/ulNormal4.0-11.0The [facility] HospitalComcorewell health blodgett hospital on above: Performed By: #### HH #### [facility] [address] [place] [address] Dr. Shayne RoldanMAGNESIUMon 42-13-9561Eiamcqvex [Mass/Vol]1.6 mg/dLCritically low 1.8-2.4The [facility] HospitalComment on above:Performed By: #### MG, RENAL, URIC #### [facility] [address] [place] [address] Dr. Shayne RoldanRENAL FUNCTION PANELon 77-79-6440Krmllgs [Mass/Vol]3.4 g/dLNormal 3.4-5.0The [facility] HospitalComment on above:Performed By: #### MG, RENAL, URIC #### [facility] [address] [place] [address] Dr. Shayne RoldanCalcium [Mass/Vol]8.7 mg/dLNormal8.5-10.1[facility] Comment on above:Performed By: #### MG, RENAL, URIC #### [facility] [address] [place] [address] Dr. Shayne RoldanChloride [Moles/Vol]104 mmol/ZWfpqap57-564Sng [facility] Comment on above:Performed By: #### MG, RENAL, URIC #### [facility] [address] [place] [address] Dr. Shayne RoldanCO2 [Moles/Vol]25.9 mmol/WFuyjzi08.0-32.0The [facility] Comment on above:Performed By: #### MG, RENAL, URIC #### [facility] [address] [place] [address] Dr. Shayne RoldanCreatinine [Mass/Vol]1.19 mg/dLCritically high0.55-1.02The [facility] HospitalComment on above:Performed By: #### MG, RENAL, URIC #### [facility] [address] [place] [address] Dr. Bella ChangEGFR-AF BBPJVSFE57 mL/min/1.98w2Reaipcpgrb low>=60The [facility] HospitalComment on above:Performed By: #### MG, RENAL, URIC #### [facility] [address] [place] [address] [address] Bella ChangEGFR-NON AF VUHZYMCX68 mL/min/1.26u6Fqkuoenyna low>=60The [facility] HospitalComment on above:Performed By: #### MG, RENAL, URIC #### [facility] [address] [place] [address] [address] Shayne RoldanGlucose [Mass/Vol]193 mg/dLCritically apfi87-907Wuq [facility] HospitalComment on above:Performed By: #### MG, RENAL, URIC #### [facility] [address] [place] [address] [address] Shayne RoldanPhosphate [Mass/Vol]3.2 mg/dLNormal2.6-4.7The [facility] Comment on above:Performed By: #### MG, RENAL, URIC #### [facility] [address] [place] [address] [address] Shayne RoldanPotassium [Moles/Vol]3.9 mmol/LNormal3.5-5.1The [facility] Comment on above:Performed By: #### MG, RENAL, URIC #### [facility] [address] [place] [address] [address] Shayne RoldanSodium [Moles/Vol]140 mmol/GJhaqsg616-367Dsc [facility] Comment on above:Performed By: #### MG, RENAL, URIC #### [facility] [address] [place] [address] [address] Shayne RoldanUrea nitrogen [Mass/Vol]17.0 mg/dLNormal7.0-18.0The [facility] HospitalComment on above:Performed By: #### MG, RENAL, URIC #### [facility] [address] [place] [address] [address] Shayne RoldanUA RANDOM W/MICROSCOPICon 95-73-0605TBALLXXJMHQGBJtzrkkezSDDE SEENAdena Pike Medical CenterComment on above:Performed By: #### MG, RENAL, URIC #### [facility] [address] [place] [address] [address] Shayne RoldanBilirubin Ql (U)NegativeNormalNEGATIVEAdena Pike Medical Center Comment on above:Performed By: #### MG, RENAL, URIC #### [facility] [address] [place] [address] [address] Shayne Lomeli SEENNormalNONE SEENAdena Pike Medical CenterComment on above:Performed By: #### MG, RENAL, URIC #### [facility] [address] [place] [address] [address] Shayne Sierra (U)CLEARNormalCLEARAdena Pike Medical CenterComment on above: Performed By: #### MG, RENAL, URIC #### [facility] [address] [place] [address] [address] Shayne Au (U)LT. YELLOWNormalYELLOWAdena Pike Medical CenterComment on above:Performed By: #### MG, RENAL, URIC #### [facility] [address] [place] [address] [address] Shayne RoldanCrystals LM Nom (Urine sed)NONE SEENNormalNONE SEENAdena Pike Medical CenterComment on above:Performed By: #### MG, RENAL, URIC #### [facility] [address] [place] [address] [address] Bella ChangEpithelial cells LM Ql (Urine sed)RARENormalNONE SEEN /RAREAdena Pike Medical CenterComment on above:Performed By: #### MG, RENAL, URIC #### [facility] [address] [place] [address] [address] Shayne RoldanGlucose Ql (U)NegativeNormalNEGATIVEAdena Pike Medical CenterComment on above:Performed By: #### MG, RENAL, URIC #### [facility] [address] [place] [address] [address] Shayne RoldanHemoglobin Ql (U)NegativeNormalNEGATIVEAdena Pike Medical Center Comment on above:Performed By: #### MG, RENAL, URIC #### [facility] [address] [place] [address] [address] Shayne RoldanKetones Ql (U)NegativeNormalNEGATIVEAdena Pike Medical CenterComment on above:Performed By: #### MG, RENAL, URIC #### [facility] [address] [place] [address] Dr. Shayne RoldanLEUKOCYTESNegativeNormalNEGATIVEThe [facility] HospitalComment on above:Performed By: #### MG, RENAL, URIC #### [facility] [address] [place] [address] Dr. Shayne GrecoCOUSNONMir SEENNormalNONE SEENThe [facility] HospitalComment on above:Performed By: #### MG, RENAL, URIC #### [facility] [address] [place] [address] Dr. Shayne Gordontrite Ql (U)NegativeNormalNEGATIVEThe [facility] HospitalComment on above:Performed By: #### MG, RENAL, URIC #### [facility] [address] [place] [address] Dr. Shayne RoldanpH (U)5.0 [pH]Normal5-9The [facility] HospitalComment on above: Performed By: #### MG, RENAL, URIC #### [facility] [address] [place] [address] Dr. Shayne RoldanWhyweDFW6-7Origdu4-9Cca [facility]al Medical Centerment on above:Performed By: #### MG, RENAL, URIC #### [facility] [address] [place] [address] Dr. Shayne RoldanSPEC GRAVITY1.076Tlfivo9.005-<=1.025The [facility] HospitalComment on above:Performed By: #### MG, RENAL, URIC #### [facility] [address] [place] [address] Dr. Shayne Espinoza PROTEINNegativeNormalNEGATIVE/ TRACEThe [facility] Comment on above:Performed By: #### MG, RENAL, URIC #### [facility] [address] [place] [address] Dr. Shayne Dennybilinogen Qn (U)0.2 {Rogelio'U}/dLNormal0.2 - 1.0The [facility] HospitalComment on above:Performed By: #### MG, RENAL, URIC #### [facility] [address] [place] [address] Dr. Shayne RoldanWBC0-2AbnormalNONE SEENAdena Pike Medical CenterComcorewell health blodgett hospital on above: Performed By: #### MG, RENAL, URIC #### [facility] [address] [place] [address] [address] Shayne Daniel ACID SERUMon 35-51-2157Paulw [Mass/Vol]6.1 mg/dLCritically high2.6-6.0The [facility] HospitalComment on above:Performed By: #### MG, RENAL, URIC #### [facility] [address] [place] [address] [address] Shayne Wood T PROTEIN CREAT RATIOon 50-77-1200Lrkfspg (U) [Mass/Vol] 13.0 mg/dLCritically high<=12.0The [facility] on above:Performed By: #### MG, RENAL, URIC #### [facility] [address] [place] [address] [address] Shayne Wheeler PROT CREAT RAT0.16NoBrecksville VA / Crille HospitalComment on above: Performed By: #### MG, RENAL, URIC #### [facility] [address] [place] [address] [address] Shayne Wood CREAT83.60 mg/wUNkjdex93.00-300.00[facility] Comment on above:Performed By: #### MG, RENAL, URIC #### [facility] [address] [place] [address] [address] Shayne RoldanVITAMIN D 25 OHon 43-09-0312SZU D 25-OH41.6 ng/mLNormalOhioHealth Mansfield Hospital on above:Performed By: #### MG, RENAL, URIC #### [facility] [address] [place] [address] Dr. Shayne Vilchis RANGESSEE Martin Memorial HospitalComcorewell health blod[facility] hospital on above: Result Comment: <20 ng/mL Vit D deficient 20 - <30 ng/mL Vit D insufficient 30 - 100 ng/mL Vit D sufficient >100 ng/mL Potential ToxicityPerformed By: #### MG, RENAL, URIC #### [facility] [address] [place], [place] [address] Dr. Shayne RoldanXR CHEST 2 Von 68-44-0155NZ CHEST 2 VEXAMINATION: XR CHEST 2 V HISTORY: Cough COMPARISON: Chest x-rays 06/08/2022 TECHNIQUE: PA and lateral chest x-rays FINDINGS: The lung parenchyma is free of consolidation or infiltrate. No pneumothorax or pleural effusion. The cardiac, mediastinal and hilar contours are normal. The visualized osseous structures exhibit no gross abnormality. IMPRESSION: No acute cardiopulmonary abnormality. Electronically authenticated by: BRITTANY GALDAMEZ Date: 2023-02-22 16:15NDetwiler Memorial HospitalMG MAMM SCREEN 3D PRATEEK CADon 78-99-5162DU MAMM SCREEN 3D PRATEEK CAD Patient: DIANA CHAMPION Exam Date: 12/15/2022 : 1955 Gender:F Ordering : DR JACK HALL . Admission #: [id number] Family : Order #: [id number] CLICK HERE TO VIEW EXAM RADIOLOGY REPORT PROCEDURE: MAMMOGRAM SCREENING 3D BILATERAL CAD COMPARISON: MG MAMM SCREEN 3D PRATEEK CAD, 11/26/2021. INDICATIONS: Calculator Name NCI Breast Cancer Risk Assessment Tool 5 Year Breast Cancer Risk 1.20% Lifetime Breast Cancer Risk 4.40% Personal Breast Cancer No Personal Ovarian Cancer No Treatments Excision, radiation, chemotherapy Family Cancers None LOCATION: [facility] BREAST COMPOSITION: Almost entirely fatty. FINDINGS: [...] by: Brittany Walters MD on 12/15/2022 at 10:51[facility] GeneralXR DEXA BONE DENSITYon 02-76-5840NV DEXA BONE DENSITYEXAMINATION: XR DEXA BONE DENSITY, [...] Electronically authenticated by: STEPH GRANADOS Date: 2022-12-15 09:50[facility] ACOG PANEL 2: 30 to 65on 11-16-2022..NormalOhioHealth Mansfield Hospital on above:Performed By: #### [id number] #### [facility] [address] [place] [address] Dr. Shayne RoldanAge [facility] ACOG TestingCommentNoKettering Health Miamisburg on above:Result Comment: <21 or >65 or no age providedPerformed By: #### [id number] #### [facility] [address] [place] [address] Dr. Shayne RoldanDIAGNOSIS:CommentNewark Hospital on above: Result Comment: NEGATIVE FOR INTRAEPITHELIAL LESION OR MALIGNANCY.Performed By: #### [id number] #### [facility] [address] [place] [address] Dr. Shayne RoldanMethodology:CommentNoKettering Health Miamisburg on above: Result Comment: This liquid based ThinPrep(R) pap test was screened with the use of an image guided system.Performed By: #### [id number] #### [facility] [address] [place] [address] Dr. Shayne RoldanNote:CommentNewark Hospital on above:Result Comment: The Pap smear is a screening test designed to aid in the detection of premalignant and malignant conditions of the uterine cervix. It is not a diagnostic procedure and should not be used as the sole means of detecting cervical cancer. Both false-positive and false-negative reports do occur. .Performed By: #### [id number] #### [facility] [address] [place] [address] Dr. Shayne RoldanPerformed by:CommentNewark Hospital on above: Result Comment: Dakota Aguilar, Payroll Machine Operator (ASCP)Performed By: #### [id number] #### [facility] [address] [place] [address] Dr. Shayne RoldanSpecimen adequacy:CommentNewark Hospital on above:Result Comment: Satisfactory for evaluation. Endocervical and/or squamous metaplastic cells (endocervical component) are present.Performed By: #### [id number] #### [facility] [address] [place] [address] Dr. Shayne RoldanRENAL FUNCTION PANELon 91-24-0697Oakvtqv [Mass/Vol]3.4 g/dLNormal 3.4-5.0The [facility] HospitalComment on above:Performed By: #### MG, RENAL, URIC #### [facility] [address] [place] [address] Dr. Shayne RoldanCalcium [Mass/Vol]8.4 mg/dLCritically low8.5-10.1The [facility] on above:Performed By: #### MG, RENAL, URIC #### [facility] [address] [place] [address] Dr. Shayne RoldanChloride [Moles/Vol]103 mmol/QIdzbxa89-414MtjAdena Pike Medical Center Comment on above:Performed By: #### MG, RENAL, URIC #### [facility] [address] [place] [address] Dr. Shayne RoldanCO2 [Moles/Vol]27.8 mmol/RPiorul64.0-32.0The [facility] Comment on above:Performed By: #### MG, RENAL, URIC #### [facility] [address] [place] [address] Dr. Shayne RoldanCreatinine [Mass/Vol]1.02 mg/dLNormal0.55-1.02The [facility] HospitalComment on above:Performed By: #### MG, RENAL, URIC #### [facility] [address] [address] [address] Shayne PeñaGFR-AF NEW ZEALANDER>60Normal>=60The [facility] Union HospitalComment on above:Performed By: #### MG, RENAL, URIC #### [facility] [address] [place] [address] Dr. Shayne PeñaGFR-NON AF AREAJSKV16 mL/min/1.94c9Vcxmgnehtn low>=60The [facility] HospitalComment on above:Performed By: #### MG, RENAL, URIC #### [facility] [address] [place] [address] Dr. Shayne RoldanGlucose [Mass/Vol]110 mg/dLCritically ihud87-326Ate [facility] HospitalComment on above:Performed By: #### MG, RENAL, URIC #### [facility] [address] [place] [address] Dr. Shayne RoldanPhosphate [Mass/Vol]2.3 mg/dLCritically low2.6-4.7The [facility] HospitalComment on above:Performed By: #### MG, RENAL, URIC #### [facility] [address] [place] [address] Dr. Shayne RoldanPotassium [Moles/Vol]3.2 mmol/LCritically low3.5-5.1The [facility] Centerment on above:Performed By: #### MG, RENAL, URIC #### [facility] [address] [place] [address] Dr. Shayne RoldanSodium [Moles/Vol]138 mmol/LIecaqb316-522Ddq [facility] Comment on above:Performed By: #### MG, RENAL, URIC #### [facility] [address] [place] [address] Dr. Shayne RoldanUrea nitrogen [Mass/Vol]14.0 mg/dLNormal7.0-18.0The [facility] HospitalComment on above:Performed By: #### MG, RENAL, URIC #### [facility] [address] [place] [address] Dr. Shayne BarkerH INTACTon 52-40-8079DDY, Igcnko83 pg/pLWchumz45-58Maz [facility] Centerment on above:Performed By: #### MG, RENAL, URIC #### [facility] [address] [place] [address] Dr. Shayne RoldanHEMOGRAM AND PLATELon 58-53-0176Skuuaggrko (Bld) [Volume fraction]39.8 %Bzkscq54.0-48.0The [facility] HospitalComment on above:Performed By: #### MG, RENAL, URIC #### [facility] [address] [place] [address] Dr. Shayne RoldanHemoglobin (Bld) [Mass/Vol]13.4 g/dUJfaahc86.0-16.0The [facility] HospitalComment on above:Performed By: #### MG, RENAL, URIC #### [facility] [address] [place] [address] Dr. Shayne Spears (RBC) [Entitic mass]30.5 dpKsdvby15.7-34.0The [facility] HospitalComment on above:Performed By: #### MG, RENAL, URIC #### [facility] [address] [place] [address] Dr. Shayne Spears (RBC) [Mass/Vol]33.7 g/dNPtqjxf37.9-35.2The [facility] HospitalComment on above:Performed By: #### MG, RENAL, URIC #### [facility] [address] [place] [address] Dr. Shayne Spears (RBC) [Entitic vol]90.5 vTRqvfic45.0-99.0The [facility] Centerment on above:Performed By: #### MG, RENAL, URIC #### [facility] [address] [place] [address] Dr. Shayne RoldanPLT299 103/zwHxcegm633-770Zzt [facility] HospitalComment on above: Performed By: #### MG, RENAL, URIC #### [facility] [address] [place] [address] Dr. Shayne RoldanRBC4.40 106/ulNormal4.20-5.40The [facility] HospitalComment on above:Performed By: #### MG, RENAL, URIC #### [facility] [address] [place] [address] Dr. Shayne RoldanWBC8.8 103/ulNormal4.0-11.0The [facility] HospitalComment on above: Performed By: #### MG, RENAL, URIC #### [facility] [address] [place] [address] Dr. Shayne RoldanMAGNESIUMon 24-15-2026Nbyfxkpro [Mass/Vol]1.5 mg/dLCritically low 1.8-2.4The [facility] HospitalComment on above:Performed By: #### MG, RENAL, URIC #### [facility] [address] [place] [address] Dr. Shayne SernaAL FUNCTION PANELon 34-40-3159Zbwucil [Mass/Vol]3.5 g/dLNormal 3.4-5.0The [facility] HospitalComment on above:Performed By: #### MG, RENAL, URIC #### [facility] [address] [place] [address] Dr. Shayne RoldanCalcium [Mass/Vol]8.4 mg/dLCritically low8.5-10.1The [facility] HospitalComment on above:Performed By: #### MG, RENAL, URIC #### [facility] [address] [place] [address] Dr. Shayne RoldanChloride [Moles/Vol]101 mmol/GIdnuvt69-686Cet [facility] Comment on above:Performed By: #### MG, RENAL, URIC #### [facility] [address] [place] [address] Dr. Shayne RoldanCO2 [Moles/Vol]29.5 mmol/FHenmsw48.0-32.0The [facility] Comment on above:Performed By: #### MG, RENAL, URIC #### [facility] [address] [place] [address] Dr. Shayne RoldnaCreatinine [Mass/Vol]1.04 mg/dLCritically high0.55-1.02The [facility] Centerment on above:Performed By: #### MG, RENAL, URIC #### [facility] [address] [place] [address] Dr. Shayne PeñaGFR-AF NEW ZEALANDER>60Normal>=60The [facility] HospitalComment on above:Performed By: #### MG, RENAL, URIC #### [facility] [address] [place] [address] Dr. Shayne PeñaGFR-NON AF BPKOKQCE05 mL/min/1.70l7Zktawpzqjs low>=60The [facility] Centerment on above:Performed By: #### MG, RENAL, URIC #### [facility] [address] [place] [address] Dr. Shayne RoldanGlucose [Mass/Vol]92 mg/vARiddhr27-600SnqAdena [facility]ike [facility] Center Comment on above:Performed By: #### MG, RENAL, URIC #### [facility] [address] [place] [address] Dr. Shayne RoldanPhosphate [Mass/Vol]2.4 mg/dLCritically low2.6-4.7The [facility] HospitalComment on above:Performed By: #### MG, RENAL, URIC #### [facility] [address] [place] [address] Dr. Shayne RoldanPotassium [Moles/Vol]2.8 mmol/LCritically low3.5-5.1The [facility] Centerment on above:Performed By: #### MG, RENAL, URIC #### [facility] [address] [place] [address] Dr. Shayne RoldanSodium [Moles/Vol]137 mmol/QPktbyv733-523Vxl [facility] Comment on above:Performed By: #### MG, RENAL, URIC #### [facility] [address] [place] [address] Dr. Shayne RoldanUrea nitrogen [Mass/Vol]10.0 mg/dLNormal7.0-18.0The [facility] HospitalComment on above:Performed By: #### MG, RENAL, URIC #### [facility] [address] [address] [address] Shayne Espinoza RANDOM W/MICROSCOPICon 89-96-2692VOMZAKEEWJDYOVozixwyuHLWI SEENAdena Pike Medical CenterComment on above:Performed By: #### UAMIC #### [facility] [address] [address] [address] Shayne RoldanBilirubin Ql (U)NegativeNormalNEGATIVEPromedica Fostoria [facility] Hospital on above:Performed By: #### UAMIC #### [facility] [address] [address] [address] Shayne RoldanCASTNONE SEENNormalNONE SEENAdena Pike Medical CenterComment on above:Performed By: #### UAMIC #### [facility] [address] [place] [address] Dr. Shayne RoldanClarity (U)CLEARNormalCLEARAdena Pike Medical CenterComment on above: Performed By: #### UAMIC #### [facility] [address] [place] [address] Dr. Shayne RoldanColor (U)LT. YELLOWNormalYUniversity Hospitals Samaritan Medical CenterComment on above:Performed By: #### UAMIC #### [facility] [address] [place] [address] Dr. Shayne RoldanCrystals LM Nom (Urine sed)NONE SEENNormalNONE SEENAdena Pike Medical CenterComment on above:Performed By: #### UAMIC #### [facility] [address] [address] [address] Bella ChangEpithelial cells LM Ql (Urine sed)FEWAbnormalNONE SEEN /RAREThe [facility] HospitalComment on above:Performed By: #### UAMIC #### [facility] [address] [place] [address] Dr. Shayne RoldanGlucose Ql (U)NegativeNormalNEGATIVEAdena Pike Medical CenterComment on above:Performed By: #### UAMIC #### [facility] [address] [place] [address] Dr. Shayne RoldanHemoglobin Ql (U)NegativeNormalNEGATIVEAdena Pike Medical Center Comment on above:Performed By: #### UAMIC #### [facility] [address] [place] [address] Dr. Shayne Foster Ql (U)NegativeNormalNEGATIVEAdena Pike Medical CenterComment on above:Performed By: #### UAMIC #### [facility] [address] [place] [address] Dr. Shayne RoldanLEUKOCYTESTRACEAbnormalNEGATIVEThe [facility] HospitalComment on above:Performed By: #### UAMIC #### [facility] [address] [place] [address] Dr. Shayne GrecoCOUSNONMir SEENNormalNONE SEENAdena Pike Medical CenterComment on above:Performed By: #### UAMIC #### [facility] [address] [place] [address] Dr. Shayne Meyer Ql (U)NegativeNormalNEGATIVEAdena Pike Medical CenterComment on above:Performed By: #### UAMIC #### [facility] [address] [place] [address] Dr. Shayne RoldanpH (U)6.0 [pH]Normal5-9A[facility]ike Medical CenterComment on above: Performed By: #### UAMIC #### [facility] [address] [place] [address] Dr. Shayne RoldanRBCNELLEN SEENAbnormal0-2The [facility] HospitalComment on above: Performed By: #### UAMIC #### [facility] [address] [place] [address] Dr. Shayne RoldanSPEC GRAVITY<=1.706Juivywsv9.005-<=1.025[facility] Comment on above:Performed By: #### UAMIC #### [facility] [address] [place] [address] Dr. Shayne Espinoza PROTEINNegativeNormalNEGATIVE/ TRACEAdena Pike Medical Center Comment on above:Performed By: #### UAMIC #### [facility] [address] [place] [address] Dr. Yilan ChangUrobilinogen Qn (U)0.2 {Rogelio'U}/dLNormal0.2 - 1.0The [facility] HospitalComment on above:Performed By: #### UAMIC #### [facility] [address] [address] [address] Shayne RoldanWBC5-10AbnormalNONE SEENThe [facility] HospitalComment on above: Performed By: #### UAMIC #### [facility] [address] [place] [address] Dr. Shayne RoldanURIC ACID SERUMon 10-55-4191Gsdir [Mass/Vol]6.5 mg/dLCritically high2.6-6.0The [facility] HospitalComment on above:Performed By: #### MG, RENAL, URIC #### [facility] [address] [place] [address] Dr. Shayne Wood T PROTEIN CREAT RATIOon 66-82-9025Ameomka (U) [Mass/Vol]4.8 mg/dLNormal<=12.0The [facility] HospitalComment on above:Performed By: #### URTPCR #### [facility] [address] [place] [address] Dr. Shayne Wheeler PROT CREAT RAT0.09[facility] GeneralComment on above: Performed By: #### URTPCR #### [facility] [address] [place] [address] Dr. Shayne Wood CREAT52.65 mg/kQOprcuh26.00-300.00The [facility] Comment on above:Performed By: #### URTPCR #### [facility] [address] [place] [address] Dr. Shayne RoldanVITAMIN D 25 OHon 57-19-0617RXT D 25-OH38.9 ng/mLNormalAdena Pike Medical CenterComcorewell health bl[facility] on above:Performed By: #### MG, RENAL, URIC #### [facility] [address] [place] [address] Dr. Shayne Leslie D RANGES[place] BELOWCleveland Clinic [facility] GeneralComment on above: Result Comment: <20 ng/mL Vit D deficient 20 - <30 ng/mL Vit D insufficient 30 - 100 ng/mL Vit D sufficient >100 ng/mL Potential ToxicityPerformed By: #### MG, RENAL, URIC #### [facility] [address] [place] [address] Dr. Shayne RoldanIMMUNOGLOBULINS IGA/IGM/IGG/IGE QUANTITAon 07-12-2022 Immunoglobulin A, Qn, Lpsjj882 mg/xJWwwluw98-652Hqm [facility] on above:Result Comment: Performed at: CBPerformed By: #### MG, RENAL, URIC #### [facility] [address] [place] [address] Dr. Shayne RoldanImmunoglobulin E, Total32 IU/mLNormal6-495[facility] Comment on above:Result Comment: Performed at: BNPerformed By: #### MG, RENAL, URIC #### [facility] [address] [place] [address] Dr. Shayne RoldanImmunoglobulin G, Qn, Trcyj980 mg/kLVhiquo244-1396Bxq [facility] Centerment on above:Result Comment: Performed at: CBPerformed By: #### MG, RENAL, URIC #### [facility] [address] [place] [address] Dr. Shayne RoldanImmunoglobulin M, Qn, Serum75 mg/wGHhnapy21-175Dpk [facility] on above:Result Comment: Performed at: CBPerformed By: #### MG, RENAL, URIC #### [facility] [address] [place] [address] Dr. Shayne Bridges AUTO DIFFon 35-16-3468SZVX #0.1 103/ulNormal0.0-0.1[facility] on above:Performed By: #### MG, RENAL, URIC #### [facility] [address] [place] [address] Dr. Shayne RoldanBasophils/100 WBC (Bld)0.7 %Normal0.2-2.0[facility] Comment on above:Performed By: #### MG, RENAL, URIC #### [facility] [address] [place] [address] Dr. Shayne Irizarry #0.4 103/ulNormal0.0-0.7The [facility] HospitalComment on above: Performed By: #### MG, RENAL, URIC #### [facility] [address] [place] [address] Dr. Shayne Peñaosinophils/100 WBC (Bld)4.4 %Normal0.9-7.0[facility] Comment on above:Performed By: #### MG, RENAL, URIC #### [facility] [address] [place] [address] Dr. Shayne Peñarythrocyte distribution width (RBC) [Ratio]12.6 %Aopcau26.0-15.0 The [facility] HospitalComment on above:Performed By: #### MG, RENAL, URIC #### [facility] [address] [place] [address] Dr. Shayne RoldanHematocrit (Bld) [Volume fraction]40.2 %Zlrroz98.0-48.0The [facility] HospitalComment on above:Performed By: #### MG, RENAL, URIC #### [facility] [address] [place] [address] Dr. Shayne RoldanHemoglobin (Bld) [Mass/Vol]13.6 g/kWRyjhak10.0-16.0The [facility] HospitalComment on above:Performed By: #### MG, RENAL, URIC #### [facility] [address] [place] [address] Dr. Shayne Sy #0.07 10e3/ulCritically high0.00-0.03The [facility] Comment on above:Performed By: #### MG, RENAL, URIC #### [facility] [address] [place] [address] Dr. Shayne Sy %0.8 %Critically high0.0-0.5The [facility] HospitalComment on above:Performed By: #### MG, RENAL, URIC #### [facility] [address] [place] [address] Dr. Shayne Rojo #2.3 103/ulNormal1.2-3.8The [facility] HospitalComment on above:Performed By: #### MG, RENAL, URIC #### [facility] [address] [place] [address] Dr. Shayne Hanleyhocytes/100 WBC (Bld)24.7 %Zsuaaq86.5-60.0The [facility] HospitalComment on above:Performed By: #### MG, RENAL, URIC #### [facility] [address] [place] [address] Dr. Shayne Griffin DIFF REQNONormalThe [facility] HospitalComment on above: Performed By: #### MG, RENAL, URIC #### [facility] [address] [place] [address] Dr. Shayne Spears (RBC) [Entitic mass]30.7 npGhmzpj64.7-34.0The [facility] HospitalComment on above:Performed By: #### MG, RENAL, URIC #### [facility] [address] [place] [address] Dr. Shayne Spears (RBC) [Mass/Vol]33.8 g/eNGawjto17.9-35.2The [facility] HospitalComment on above:Performed By: #### MG, RENAL, URIC #### [facility] [address] [place] [address] Dr. Shayne Spears (RBC) [Entitic vol]90.7 qIKrrzkr90.0-99.0The [facility] HospitalComment on above:Performed By: #### MG, RENAL, URIC #### [facility] [address] [place] [address] Dr. Shayne Germain #0.7 103/ulNormal0.3-0.8The [facility] HospitalComment on above:Performed By: #### MG, RENAL, URIC #### [facility] [address] [place] [address] Dr. Shayne Haocytes/100 WBC (Bld)7.7 %Normal1.7-12.0[facility] Comment on above:Performed By: #### MG, RENAL, URIC #### [facility] [address] [place] [address] Dr. Shayne Brock #5.7 103/ulNormal1.4-6.5The [facility] HospitalComment on above:Performed By: #### MG, RENAL, URIC #### [facility] [address] [place] [address] Dr. Shayne Servinutrophils/100 WBC (Bld)61.7 %Qymyph83.0-75.0The [facility] HospitalComment on above:Performed By: #### MG, RENAL, URIC #### [facility] [address] [place] [address] Dr. Shayne Berry mean volume (Bld) [Entitic vol]8.8 fLCritically low 9.5-13.5The [facility] HospitalComment on above:Performed By: #### MG, RENAL, URIC #### [facility] [address] [place] [address] Dr. Shayne RoldanPLT279 103/yyJfesff629-311Vye [facility] HospitalComment on above: Performed By: #### MG, RENAL, URIC #### [facility] [address] [place] [address] Dr. Shayne RoldanRBC4.43 106/ulNormal4.20-5.40The [facility] HospitalComment on above:Performed By: #### MG, RENAL, URIC #### [facility] [address] [place] [address] Dr. Shayne RoldanWBC9.1 103/ulNormal4.0-11.0The [facility] HospitalComment on above: Performed By: #### MG, RENAL, URIC #### [facility] [address] [place] [address] Dr. Shayne RoldanCovid-19 PCR ([facility])on 88-23-2650UMRY-CoV-2 (COVID-19) RNA KAYLEE+probe Ql (Unsp spec)Not detectedNormalNOT DETECTEDThe [facility] Comment on above:Result Comment: This test is not yet approved or cleared by the [place] FDA. When there are no FDA-approved or cleared tests available, and other criteria are met, FDA can make tests available under an emergency access mechanism called an Emergency Use Authorization (EUA). The EUA for this test is supported by the [employer] of Health and Human Service's (HHS's) declaration [...] SARS-CoV-2.Performed By: #### MG, RENAL, URIC #### [facility] [address] [place] [address] Dr. Shayne RoldanXR CHEST 2 Von 76-48-2718PG CHEST 2 VEXAM: CHEST 2 VIEWS HISTORY: [...] Electronically authenticated by: NARDA LONDONO Date: 2022-06-08 19:58NoBrecksville VA / Crille HospitalCovid-19 PCR ([facility])on 69-69-6014DKEG-CoV-2 (COVID-19) RNA KAYLEE+probe Ql (Unsp spec)Not detectedNormalNOT DETECTEDThe [facility] Comment on above:Result Comment: This test is not yet approved or cleared by the [place] FDA. When there are no FDA-approved or cleared tests available, and other criteria are met, FDA can make tests available under an emergency access mechanism called an Emergency Use Authorization (EUA). The EUA for this test is supported by the [employer] of Health and Human Service's (HHS's) declaration [...] consistent with SARS-CoV-2.Performed By: #### CVDTBH #### [facility] [address] [address] [address] Shayne Casas AXIALon 77-34-6755ERBP [facility] Department of Radiology [address] [place] [id number] Patient Name: DIANA CHAMPION : 1955 Sex: F Age: Race: White Pt. Location: Patient Status: D Ordered Date: 02/24/2022 1:25:00 PM Completed Date: 03/01/2022 09:46 AM Requesting Provider: CINDA ANTONIO Attending Provider: Report Copy To: Signs & Symptoms: Z78.0 Asymptomatic menopausal state I10 History: [place] Comments: Exam: DEXA AXIAL DEXA AXIAL 03/01/2022 [...] characteristics. Electronically signed: Luzma Marks. Transcribed by: [email or web address], User Resident: Electronically Signed by: LUZMA MARKS @ 03/02/2022 01:07 [facility] CenterCOLIOSIS 2 [facility] [id number] 2 [facility] Department of Radiology [address] [place] [phone] Patient Name: DIANA CHAMPION : 1955 [...] spine. Electronically signed: Hugo Lynn. Transcribed by: [email or web address], User Resident: Electronically Signed by: HUGO LYNN @ 02/26/2022 11:07 AMNormalThe [facility] Sam[facility]itan HospitalComment on above:Order Comment: Views (X-RAY, SCOLIOSIS): PA, Lateral evaluateCT LUMBAR SPINE W CONTRASTon 68-38-2702JJ LUMBAR SPINE W CONTRASTUnSt. Anthony's Hospital Department of Radiology [address] [place] [phone] Patient Name: DIANA CHAMPION : 1955 [...] L1-2. Electronically signed: Gaurang Hess. Transcribed by: [email or web address], User Resident: Electronically Signed by: GAURANG HESS @ 01/26/2022 08:58 AMNormalThe [facility] Sam[facility]itan HospitalComment on above:Order Comment: , CT MYELOGRAM>PAPER WORK IN CHARTLUMBAR MYELOGRAMon 17-48-9088TMYTHG MYELOGRAM [facility] Department [facility] Radiology [address] [place] [address] [...] on thinners? ASA hold [address] driver paperwork up front Comments: , CT [...] risks are acceptable. Consent was obtained. Timeout: [place] protocol timeout verification performed. PROCEDURE: Estimated blood [...] report. Electronically signed: Greg Mcmahan. Transcribed by: [email or web address], User Resident: DEBBIE JI Electronically Signed by: GREG MCMAHAN @ 01/24/2022 04:07 PM I personally read this/these film(s) with this residentOhioHealth Shelby HospitalComment on above:Order Comment: , CT MYELOGRAM> PAPER WORK SCANNED IN CHART , CT MYELOGRAM> PAPER WORK SCANNEDIN CHART , , , Ordering Provider - JOO LINN MD , HIP LEFT 1 OR 2 VWS WITH PELVIS on 26-62-6049UMO LEFT 1 OR 2 VWS WITH PELVISUnSt. Anthony's Hospital Department of Radiology [address] [place] [phone] Patient Name: DIANA CHAMPION : 1955 [...] hardware. Electronically signed: Joe Matthew. Transcribed by: [email or web address], User Resident: Electronically Signed by: JOE MATTHEW @ 01/09/2022 04:45 [facility] HospitalComment on above:Order Comment: Evaluate Vital Signs Date TimeVital SignValuePerforming [id number] 08:50-0400Body hjzgwi284.56 cmBrittany Reese STAKE DRIVER-C Work Phone: [phone]10-13-2025 08:50-0400 Body mass index (BMI) [Ratio]39.4 kg/y5Zorlzjyq Reese STAKE DRIVER-C Work Phone: [phone]10-13-2025 08:50-0400 Body atjgrhaiqfs09.1 [degF]Aida Reese STAKE DRIVER-C Work Phone: [facility]10-13-2025 08:50-0400 Body .38 kgBrbenson Reese STAKE DRIVER-C Work Phone: [phone]-[facility] Health10-13-2025 08:50-0400 Diastolic blood icacpjzg30 mm[Hg]Aida Reese STAKE DRIVER-C Work Phone: 1(643)417-[address] [place], [place] 7406610-13-2025 08:50-0400 Heart rate82 /minBrittany Reese STAKE DRIVER-C Work Phone: 1(652)968-[address] [place], [place] 7406610-13-2025 08:50-0400 Inhaled oxygen flow rate3 L/minBrittany Reese STAKE DRIVER-C Work Phone: 1(189)[address]10-13-2025 08:50-0400 Respiratory rate20 /minBrittany Reese STAKE DRIVER-C Work Phone: 1(780)[address]10-13-2025 08:50-0400 SaO2% (BldA) [Mass fraction]92 %Aida Reese STAKE DRIVER-C Work Phone: 1(464)[address]138 [address]10-13-2025 08:50-0400 Systolic blood frivwweq671 mm[Hg]Aida Reese STAKE DRIVER-C Work Phone: 1(059)184-[address] [place], [place] 7406609-29-2025 10:11-0400 Body oogmqj481.56 cmBrelissakaushal Reese STAKE DRIVER-C Work Phone: 1(544)509-[address] [place], [place] 7406609-29-2025 10:11-0400 Body mass index (BMI) [Ratio]39.3 kg/k5Zyrlunsg Reese STAKE DRIVER-C Work Phone: 1(903)841-[address] [place], [place] 7406609-29-2025 10:11-0400 Body bjrcpejuchk60.8 [degF]Aida Reese STAKE DRIVER-C Work Phone: 1(857)488-[address] [place], [place] 7406609-29-2025 10:11-0400 Body .87 kgBrelissakaushal Reese STAKE DRIVER-C Work Phone: [facility]09-29-2025 10:11-0400 Diastolic blood jyhkojfm09 mm[Hg]Aida Reese STAKE DRIVER-C Work Phone: 1(239)540-[facility]09-29-2025 10:11-0400 Heart rate93 /minBrittany Reese STAKE DRIVER-C Work Phone: 1(379)754-[address] [place], [place] 7406609-29-2025 10:11-0400 Inhaled oxygen flow rate3 L/minBrittany Reese STAKE DRIVER-C Work Phone: 1(784)[address]38 [address]09-29-2025 10:11-0400 Respiratory rate18 /minBrittany Reese STAKE DRIVER-C Work Phone: 1(003)232[address]09-29-2025 10:11-0400 SaO2% (BldA) [Mass fraction]93 %Aida Reese STAKE DRIVER-C Work Phone: 1(224)[address]09-29-2025 10:11-0400 Systolic blood cgjtncge924 mm[Hg]Aida Reese STAKE DRIVER-C Work Phone: 1(881)10338 [address]09-11-2025 09:08-0400 Body eebnqf970.56 cmBrittany Reese STAKE DRIVER-C Work Phone: 1(490)172-[address] [place], [place] 7406609-11-2025 09:08-0400 Body mass index (BMI) [Ratio]40.1 kg/f2Bbnkknhb Reese STAKE DRIVER-C Work Phone: 1(910)080-[address] [place], [place] 7406609-11-2025 09:08-0400 Body dlcrfznpmez66.1 [degF]Aida Reese STAKE DRIVER-C Work Phone: 1(332)015-[address] [place], [place] 7406609-11-2025 09:08-0400 Body krhewl107.25 kgBrittany Reese STAKE DRIVER-C Work Phone: 1(475)269-[address] [place], [place] 7406609-11-2025 09:08-0400 Diastolic blood ibugpwnb10 mm[Hg]Aida Reese STAKE DRIVER-C Work Phone: [facility]09-11-2025 09:08-0400 Heart rate74 /minBrittany Reese STAKE DRIVER-C Work Phone: [facility]09-11-2025 09:08-0400 Inhaled oxygen flow rate3 L/minBrittany Reese STAKE DRIVER-C Work Phone: [facility]09-11-2025 09:08-0400 Respiratory rate24 /minBrittany Reese STAKE DRIVER-C Work Phone: 8(386)241-[facility]09-11-2025 09:08-0400 SaO2% (BldA) [Mass fraction]95 %Aida Reese STAKE DRIVER-C Work Phone: [facility]09-11-2025 09:08-0400 Systolic blood ccvpwokx915 mm[Hg]Aida Reese STAKE DRIVER-C Work Phone: [facility]07-14-2025 08:43-0400 Body mass index (BMI) [Ratio]40.58 kg/m2Kaylene Torreshholz STAKE DRIVER Work Phone: [facility] HealthcareVbtckychip52-06-1564 08:43-0400Body temperature 98.49 [degF]Kaylene Ferdinandholz STAKE DRIVER Work Phone: [facility] HealthcareXefyqlbqah47-84-9268 08:43-0400Body tyggtn623.23 kgLisa Brianhholz STAKE DRIVER Work Phone: [facility] HealthcareHxflgvghov33-57-5400 08:43-0400Diastolic blood cvlvbnaj32 mm[Hg]Kaylene Aichholz STAKE DRIVER Work Phone: [facility] HealthcareHkwkdyizsu20-76-7476 08:43-0400Heart rate74 /min Kaylene Aichholz STAKE DRIVER Work Phone: [facility] HealthcareAjqwmbfyfe46-32-2431 08:43-0400Respiratory rate22 /minLisa Ferdinandholz STAKE DRIVER Work Phone: [facility] HealthcareCxshnkdvqe92-85-8016 08:43-0547PqD6% (BldA) [Mass fraction]94 %Kaylenemeng Streeterholz STAKE DRIVER Work Phone: [facility] HealthcareTrcaqpulob64-01-5903 08:43-0400Systolic blood mm[Hg]Kaylene Ferdinandholz STAKE DRIVER Work Phone: [facility] HealthcareHafnogscky00-74-0511 11:03-0400Body mass index (BMI) [Ratio]41.2 kg/m2Lisa Ferdinandholz STAKE DRIVER Work Phone: [facility] HealthcareSqflczsoge98-98-2886 11:03-0400Body temperature 98.2 [degF]Kaylene Ferdinandholz STAKE DRIVER Work Phone: [facility] HealthcareOxirzgdfhu49-37-4809 11:03-0400Body .86 kgLisa Ferdinandholz STAKE DRIVER Work Phone: [facility] HealthcareSadbsnypyg00-64-6091 11:03-0400Diastolic blood zsmvartq08 mm[Hg]Kaylene Ferdinandholz STAKE DRIVER Work Phone: [facility] HealthcareRngmaezeda31-17-0527 11:03-0400Heart rate73 /min Kaylene Ferdinandholz STAKE DRIVER Work Phone: [facility] HealthcareIihlgwsctn39-54-9036 11:03-0400Respiratory rate22 /minLisa Brianhholz STAKE DRIVER Work Phone: [facility] HealthcareKfevemcxjg02-49-9735 11:03-5301QdO6% (BldA) [Mass fraction]93 %Kaylene Ferdinandholz STAKE DRIVER Work Phone: [facility] HealthcareRcmeecioov54-34-7841 11:03-0400Systolic blood tzaguffg923 mm[Hg]Kaylene Brianhholz STAKE DRIVER Work Phone: [facility] HealthcareDdtunzcveu18-97-7961 09:57-0400Body temperature 98.06 [degF]MAG BLOUNT [facility]05-19-2025 09:57-0400Diastolic blood bjfilfkc53 mm[Hg]MAG BLOUNT [facility]05-19-2025 09:57-0400Respiratory rate16 /minJENNSHAUNNA BLOUNT [facility]05-19-2025 09:57-0400Systolic blood mlhcexlg269 mm[Hg]MAG BLOUNT [facility]04-14-2025 08:31-0400Body teuvzyqugzy99.8 [degF]Kaylene López STAKE DRIVER Work Phone: [facility] HealthcareIlkgynolan74-99-8728 08:31-0400Diastolic blood ekxdhits42 mm[Hg]Kaylene Rene STAKE DRIVER Work Phone: [facility] HealthcareJekhfukulz60-28-1273 08:31-0400Heart rate85 /min Kaylene Rnee STAKE DRIVER Work Phone: [facility] HealthcareGdmecgrhht81-34-2878 08:31-0400Respiratory rate24 /minLisa López STAKE DRIVER Work Phone: [facility] HealthcareUljentrczx95-05-4071 08:31-0024UxY8% (BldA) [Mass fraction]90 %Kaylene Rene STAKE DRIVER Work Phone: [place] [address]Eytqtgtqha88-43-8999 08:31-0400Systolic blood mm[Hg]Kaylene Rene STAKE DRIVER Work Phone: [facility] HealthcareGcskegnrsx01-52-4730 09:50-0400Body [degF]Kaylenemeng López STAKE DRIVER Work Phone: [facility] HealthcareMzgdecolts54-97-1210 09:50-0400Diastolic blood mm[Hg]Kaylene Owenz STAKE DRIVER Work Phone: [facility] HealthcareNqlezkioqw01-71-4416 09:50-0400Heart rate68 /min Kaylene Ferdinandholz STAKE DRIVER Work Phone: [facility] HealthcareQsnptrkcrl45-11-2054 09:50-0400Respiratory rate26 /minLisa Aichholz STAKE DRIVER Work Phone: [facility] HealthcareXjbpduiogz60-97-6060 09:50-1746YkW1% (BldA) [Mass fraction]93 %Kaylene Ferdinandholz STAKE DRIVER Work Phone: [facility] HealthcareQoylmgedwv60-01-2131 09:50-0400Systolic blood hvduvfji883 mm[Hg]Kaylene Ferdinandholz STAKE DRIVER Work Phone: [facility] HealthcareWchcdtdhen40-61-3073 14:54-0500Body mass index (BMI) [Ratio]40.2 kg/m2Lisa Ferdinandholz STAKE DRIVER Work Phone: [facility] HealthcareZhlyraagud09-13-9833 14:54-0500Body temperature 99.61 [degF]Kaylene Ferdinandholz STAKE DRIVER Work Phone: [facility] HealthcareWeagomtxtf59-25-6039 14:54-0500Body nexioj400.23 kgLisa Ferdinandholz STAKE DRIVER Work Phone: [facility] HealthcareZovwycbspv46-54-0566 14:54-0500Diastolic blood cbsvyscr99 mm[Hg]Kaylene Ferdinandholz STAKE DRIVER Work Phone: [facility] HealthcareUiwzpqmwly69-82-3477 14:54-0500Heart rate78 /min Kaylene Brianhholz STAKE DRIVER Work Phone: [facility] HealthcareFifdfaqysq30-91-5175 14:54-0500Respiratory rate26 /minLisa Aichholz STAKE DRIVER Work Phone: [facility] HealthcareGynepkrrcj51-87-8933 14:54-0866NtW9% (BldA) [Mass fraction]91 %Kaylene Ferdinandholz STAKE DRIVER Work Phone: [facility] HealthcareNeejieqsgb81-00-6072 14:54-0500Systolic blood wxtidglx719 mm[Hg]Kaylene López STAKE DRIVER Work Phone: [facility] HealthcareKdvdmqmtie44-27-3566 13:08-0500Body ybfvzv831.6 cmBrittany Reese STAKE DRIVER Work Phone: [facility] HealthcarePcikkppgyz01-16-3482 13:08-0500Body mass index (BMI) [Ratio]40.51 kg/p7Vxnrcoxo Reese STAKE DRIVER Work Phone: [facility] HealthcareAzmnasgpii86-54-5673 13:08-0500Body temperature 97.9 [degF]Aida Reese STAKE DRIVER Work Phone: [facility] HealthcareTikmjaxedl10-84-6622 13:08-0500Body .05 kgBrittany Reese STAKE DRIVER Work Phone: [facility] HealthcareZloyymmwsv12-05-4681 13:08-0500Diastolic blood pabzwldv68 mm[Hg]Aida Reese STAKE DRIVER Work Phone: [facility] HealthcareAdgdehkcvl91-51-1288 13:08-0500Heart rate79 /min Aida Reese STAKE DRIVER Work Phone: [facility] HealthcareReqeddireh25-35-6718 13:08-0500Respiratory rate20 /minBrelissaany Reese STAKE DRIVER Work Phone: [facility] HealthcareKzbnhesvyl02-51-4778 13:08-1412OdN7% (BldA) [Mass fraction]96 %Aida Reese STAKE DRIVER Work Phone: noSS[facility] RehabFqbcbzdvpy00-12-2944 13:08-0500Systolic blood cmohdqss063 mm[Hg]Aida Reese STAKE DRIVER Work Phone: noSSM RehabMriqogljap03-59-1969 10:24-0500Body mass index (BMI) [Ratio]40.75 kg/a4Jflgtras Reese STAKE DRIVER Work Phone: [facility] HealthcareGbhybfgvwc06-54-3315 10:24-0500Body temperature 98.71 [degF]Aida Hartpatrick STAKE DRIVER Work Phone: [facility] HealthcareSwnskctbot15-26-2966 10:24-0500Body .68 kgAida Hartpatrick STAKE DRIVER Work Phone: [facility] HealthcareCsamkzgift86-53-3434 10:24-0500Diastolic blood fwwkryqx84 mm[Hg]Aida Hartpatrick STAKE DRIVER Work Phone: [facility] HealthcareHjlypovhkk03-81-2694 10:24-0500Heart rate68 /min Aida Reese STAKE DRIVER Work Phone: [facility] HealthcareWmgancahfe40-52-9670 10:24-0500Respiratory rate18 /minAida Hartpatrick STAKE DRIVER Work Phone: [facility] HealthcareDxgcizhrid98-52-6906 10:24-5116MbL0% (BldA) [Mass fraction]92 %Aida Hartpatrick STAKE DRIVER Work Phone: [facility] HealthcareUtuxlafeey38-21-2948 10:24-0500Systolic blood vrenjcmm282 mm[Hg]Aida Hartpatrick STAKE DRIVER Work Phone: [facility] HealthcareWttdirjhzp54-21-4151 14:29-0500Blood Pressure LocationJENNIFER JOSE ALEJANDRO [facility]12-10-2024 14:29-0500Diastolic blood aunnteiq71 mm[Hg]MAG JOSE ALEJANDRO [facility]12-10-2024 14:29-0500Heart rate64 /minJENNIFER JOSE ALEJANDRO [facility]12-10-2024 14:29-0500Respiratory rate20 /minJENNIFER JOSE ALEJANDRO [facility]12-10-2024 14:29-0500Systolic blood loeyzjwn335 mm[Hg]MAG BLOUNT [facility]12-02-2024 14:22-0500Body ibwpzz934.6 cmBrittany Reese STAKE DRIVER Work Phone: [facility] HealthcareUowcnuisop26-94-5996 14:22-0500Body mass index (BMI) [Ratio]40.85 kg/w8Ykqclnwa Reese STAKE DRIVER Work Phone: [facility] HealthcareUpdafedldm62-18-0678 14:22-0500Body ivubhk435.96 kgBrittany Reese STAKE DRIVER Work Phone: [facility] HealthcareHhskpqjxtd14-88-6727 14:22-0500Diastolic blood mm[Hg]Aida Reese STAKE DRIVER Work Phone: [facility] HealthcareZqhujxbsdm81-47-4160 14:22-0500Heart rate64 /min Aida Reese STAKE DRIVER Work Phone: [facility] HealthcareDdoxkavigz61-89-6344 14:22-0500Respiratory rate18 /minBrittany Reese STAKE DRIVER Work Phone: [facility] HealthcareWhoonpvpuh41-52-7393 14:22-4763VcY6% (BldA) [Mass fraction]93 %Aida Reese STAKE DRIVER Work Phone: [facility] HealthcareGwgiqznxeq86-90-2885 14:22-0500Systolic blood mm[Hg]Aida Reese STAKE DRIVER Work Phone: [facility] HealthcareYdjunesonw62-38-9676 12:53-0400Body yndlvp304.56 cmBrittany Reese STAKE DRIVER-C Work Phone: [facility]10-31-2024 12:53-0400 Body baqloh187.32 kgBrittany Reese STAKE DRIVER-C Work Phone: [facility]10-14-2024 11:41-0400 Body mass index (BMI) [Ratio]40.34 kg/p6Uybafgzw Reese STAKE DRIVER Work Phone: [facility] HealthcareLhfnpwktuq61-57-1150 11:41-0400Body temperature 97.59 [degF]Aida Reese STAKE DRIVER Work Phone: [facility] HealthcareNmiqzgnate89-96-3088 11:41-0400Body gpeouk948.59 kgBrittany Reese STAKE DRIVER Work Phone: [facility] HealthcarePbyvpqfobg81-56-4532 11:41-0400Diastolic blood mm[Hg]Aida Reese STAKE DRIVER Work Phone: [facility] HealthcareIflmznsnjb58-95-6113 11:41-0400Heart rate57 /min Aida Reese STAKE DRIVER Work Phone: [facility] HealthcareVausbvuqnd09-67-8585 11:41-6129VyO0% (BldA) [Mass fraction]90 %Aida Reese STAKE DRIVER Work Phone: [facility] HealthcareGujtfrlyxh37-84-6315 11:41-0400Systolic blood ahwrknpw242 mm[Hg]Aida Reese STAKE DRIVER Work Phone: [facility] HealthcareBjijworjdx07-13-9124 08:25-0400Body .6 cmBrelissaany Reese STAKE DRIVER Work Phone: [facility] HealthcareXxsckuzdmn63-84-3687 08:25-0400Body mass index (BMI) [Ratio]41.02 kg/i3Bdnmausw Erese STAKE DRIVER Work Phone: [facility] HealthcareZdzfagjqmm96-34-8561 08:25-0400Body temperature 98.1 [degF]Aida Reese STAKE DRIVER Work Phone: [facility] HealthcareXhkfjypabd14-36-3345 08:25-0400Body tuwdza894.41 kgBrittany Reese STAKE DRIVER Work Phone: noSS[facility]habHbdqlwqnqk40-25-2448 08:25-0400Diastolic blood mm[Hg]Aida Hartpatrick STAKE DRIVER Work Phone: noSS[facility] RehabTyeysbmuif83-12-2940 08:25-0400Heart rate83 /min Aida Hartpatrick STAKE DRIVER Work Phone: [facility] HealthcareComment on above:94% J165-73-8271 08:25-0400Systolic blood nhoyuebh664 mm[Hg]Aida Reese STAKE DRIVER Work Phone: [facility] HealthcareJizyjsulfd43-18-0732 10:30-0400Body .1 cmSteven Roshon Work Phone: 1(806)[address] [place], [place] 3256805-09-2024 10:30-0400 Body mass index (BMI) [Ratio]39 kg/g1Psalpw Roshon Work Phone: 1(491)[address] [place], [place] 3256805-09-2024 10:30-0400 Body zgirlokygof72.4 [degF]Steph Roshon Work Phone: 1(846)[address] [place], [place] 3256805-09-2024 10:30-0400 Body qlhzuo680.36 kgSteven Roshon Work Phone: 1(797)[address] [place], [place] 3256805-09-2024 10:30-0400 Diastolic blood sxuggibx82 mm[Hg]Steph Roshon Work Phone: 1(653)[address] [place], [place] 3256805-09-2024 10:30-0400 Heart rate77 /minSteven Roshon Work Phone: 1(646)[address] [place], [place] 3256805-09-2024 10:30-0400 Inhaled oxygen flow rate3 L/minSteven Roshon Work Phone: 1(138)[address]05-09-2024 10:30-0400 Respiratory rate20 /minSteven Roshon Work Phone: [facility]05-09-2024 10:30-0400 SaO2% (BldA) [Mass fraction]92 %Steph Collier Work Phone: [facility]05-09-2024 10:30-0400 Systolic blood mgubdoud242 mm[Hg]Steph Collier Work Phone: [facility]10-12-2023 09:20-0400 Body .1 cmAbdul Joana Other [employer] Other 10-12-2023 09:20-0400Body mass index (BMI) [Ratio]38.1 kg/h0Nzeuj Joana Other [employer] Other 10-12-2023 09:20-0400Body wpcqanvjmup66.8 [degF]Herberth Joana Other [employer] Other 10-12-2023 09:20-0400Body .87 kgAbdul Joana Other [employer] Other 10-12-2023 09:20-0400Diastolic blood cieqkhwi78 mm[Hg] Herberth Joana Other [employer] Other 10-12-2023 09:20-0400Respiratory rate18 /minAbdul Joana Other [employer] Other 10-12-2023 09:20-9471VrZ9% (BldA) [Mass fraction]94 % Herberth Joana Other [employer] Other 10-12-2023 09:20-0400Systolic blood prqxxkol424 mm[Hg] Herberth Joana Other [facility] [employer] Other 04-27-2023 10:00-0400Body xoackl110.1 cmAbdul Joana Other [facility] [employer] Other 04-27-2023 10:00-0400Body mass index (BMI) [Ratio] 37.29 kg/a7Kxrfj Joana Other [facility] [employer] Other 04-27-2023 10:00-0400Body qtcgfjxwyif88.9 [degF]Herberth Joana Other [employer] Other 04-27-2023 10:00-0400Body etisox722.65 kgAbdul Joana Other [employer] Other 04-27-2023 10:00-0400Diastolic blood oyilatrr78 mm[Hg] Herberth Joana Other [employer] Other 04-27-2023 10:00-0400Respiratory rate20 /minAbdul Joana Other [employer] Other 04-27-2023 10:00-5315OfW2% (BldA) [Mass fraction]96 % Herberth Joana Other [facility] [employer] Other 04-27-2023 10:00-0400Systolic blood tojaldrx697 mm[Hg] Herberth Joana Other [employer] Other 02-02-2023 09:30-0500Diastolic blood klynazbc58 mm[Hg] MD Shaikh Ohara Work Phone: [facility]02-02-2023 09:30-0500 Heart rate55 /minMD Shaikh Pérezmick Work Phone: 1(476)126-[address] [place], [place] 7406602-02-2023 09:30-0500 Respiratory rate16 /min Messer Lev Work Phone: 1(897)985-[address] [place], [place] 7406602-02-2023 09:30-0500 SaO2% (BldA) [Mass fraction]96 %MD Shaikh Ohara Work Phone: 1(017)878-[address] [place], [place] 7406602-02-2023 09:30-0500 Systolic blood iwomrmbg845 mm[Hg]MD Shaikh Ohara Work Phone: 1(796)[address]02-02-2023 06:54-0500 Body wwoiml484.56 cm Shaikh Lev Work Phone: 1(952)280-[address] [place], [place] 7406602-02-2023 06:54-0500 Body juixevwqiex52.2 [degF]MD Shaikh Ohara Work Phone: 1(364)335-[address] [place], [place] 7406602-02-2023 06:54-0500 Body lkanse792.32 kg Shaikh Lev Work Phone: 1(048)892-[address] [place], [place] 7406610-04-2022 11:00-0400 Body bedmkl576.1 cmAbdul Joana Other [facility] [employer] Other 10-04-2022 11:00-0400Body mass index (BMI) [Ratio] 37.87 kg/o0Ujurn Joana Other [facility] [employer] Other 10-04-2022 11:00-0400Body ayspwrlttpr00.2 [degF]Herberth Joana Other [facility] [employer] Other 10-04-2022 11:00-0400Body .24 kgAbdul Joana Other [employer] Other 10-04-2022 11:00-0400Diastolic blood sjwjitze82 mm[Hg] Herberth Joana Other [employer] Other 10-04-2022 11:00-0400Respiratory rate20 /minAbdul Joana Other [employer] Other 10-04-2022 11:00-5332OrG1% (BldA) [Mass fraction]95 % Herberth Joana [facility] Other 10-04-2022 11:00-0400Systolic blood wsrwahav279 mm[Hg] Herberth Joana Other [employer] Other 01-12-2022 10:40-0500Body tciuox884.1 cmAbdul Joana Other [employer] Other 01-12-2022 10:40-0500Body mass index (BMI) [Ratio] 37.97 kg/p5Rtdtn Joana Other [employer] Other 01-12-2022 10:40-0500Body ujhdzyqwpzp11.8 [degF]Herberth Joana Other [employer] Other 01-12-2022 10:40-0500Body osznze770.51 kgAbdul Joana Other [employer] Other 01-12-2022 10:40-0500Diastolic blood tqnoisfs22 mm[Hg] Herberth Joana Other [employer] Other 01-12-2022 10:40-0500Respiratory rate18 /minAbdul Joana Other [facility] [employer] Other 01-12-2022 10:40-5401BvB3% (BldA) [Mass fraction]94 % Herberth Joana Other [facility] Other 01-12-2022 10:40-0500Systolic blood odlsgidh071 mm[Hg] Herberth Joana Other [facility] Other 10-25-2021 13:15-0400Body xgfdoe197.1 cmAmber Ginty Other [facility] [employer] Other 10-25-2021 13:15-0400Body mass index (BMI) [Ratio] 36.61 kg/u2Kzibt Ginty Other [facility] [employer] Other 10-25-2021 13:15-0400Body yafzyiuvyht33.7 [degF]Rena Ginty Other [facility] [employer] Other 10-25-2021 13:15-0400Body agmlab50.79 kgAmber Ginty Other [employer] Other 10-25-2021 13:15-0221QfA5% (BldA) [Mass fraction]90 % Rena Ginty Other [facility] [employer] Other Encounters Encounter DateEncounter TypeCare ProviderFacilityStart: 10-02-2265miyaoafezo Amalia TannaFacility:[place]vueStart: 08-18-2025 End: 09-04-9436bgrkefnlgxDbmosqkp N Reese STAKE DRIVER-C Work Phone: [facility] Work Phone: Start: 08-18-2025 End: 41-96-5425Rkxtbeq encounter procedureLisa Paolo López STAKE DRIVER-C-[facility] [place] Work Phone: Start: 08-04-2025 End: 72-41-7006Lsfcumgh Result EncounterLisa Rene STAKE DRIVER Work Phone: [facility] External Department UnsolicitedStart: 08-04-2025 End: 37-04-1353Ylcncxoe Result EncounterLisa Rene STAKE DRIVER Work Phone: [facility] External Department UnsolicitedStart: 08-04-2025 End: 30-46-2712oyajdaaottFrugcyax N Mary Ann STAKE DRIVER-C Work Phone: [facility] Work Phone: Start: 08-04-2025 End: 09-60-5592Jjbzadp encounter procedureLisa Paolo López STAKE DRIVER-C-[facility] [place] Work Phone: Start: 07-22-2025 End: 12-99-7487fswuuujqogDzkquy TannaFacility:[facility] [place]vueStart: 07-22-2025 End: 19-99-5926Beefqvm encounter procedureLakhadijah Alonsoa [facility] [place] start: 09-15-5394Vao-patient / Non-visitLisa Paolo López STAKE DRIVER-C-[facility] Work Phone: Start: 07-17-2025 End: 18-22-6816mwlotwdvykJjgteobh N Mary Ann STAKE DRIVER-C Work Phone: [facility] Work Phone: Start: 07-17-2025 End: 21-85-2403Dazlwzb encounter Lauren López STAKE DRIVER-C-[facility] [place] Work Phone: Start: 06-47-1355Mammtvn encounter procedureAida Reese STAKE DRIVER-C Work Phone: [facility]: 07-16-2025 End: 51-06-3266nyeygnajsvTIRUC A PETITTINodajuan AvailableStart: 07-16-2025 End: 24-70-8834Aluavx outpatient visit 15 minutesEmalex Lazo MD Work Phone: [facility]ermatologyComment on above:Seborrheic keratosis (Primary Dx); Lentigines; History of SCC (squamous cell carcinoma) of skinStart: 07-16-2025 End: 95-37-4115Ujfirw flowsheetJessica Lazo MD Work Phone: [facility] [place] [facility]atologyStart: 07-16-2025 End: 91-00-7055Htkqnq flowsheetJessica Lazo MD Work Phone: [facility]ermatologyStart: 77-83-8583Brc-patient / Non-visitSraymundo Dickinson DO-[facility] Work Phone: Start: 07-08-2025 End: 81-96-0140agivpdifzjQxjdln TannaFacility:[facility] [place]vueStart: 07-08-2025 End: 14-49-3262Lrunljs encounter procedureAmalia Stephens [facility] [place] start: 06-18-2025 End: 95-63-1510CtohhjEhql Aichholz NP Work Phone: [facility] FMComment on above:Moderate episode of recurrent major depressive disorder (HCC)Start: 06-11-2025 End: 17-27-0555dlqtlhelgwCtlsob TannaFacility:[facility] [place]vueStart: 06-11-2025 End: 69-15-0790Jrdtiah encounter procedureAmalia Stephens [facility] [place] start: 06-04-2025 End: 33-03-9253GhqqstZrkp Aichholz [employer]AKE [employer]IVER Work Phone: noMS [facility] FMComment on above:Skin pustuleStart: 05-19-2025 End: 48-82-9351Imkvkd flowsheetLisa Aichholz STAKE DRIVER Work Phone: noms [facility] FMStart: 05-19-2025 End: 90-76-4875Hjxlgh flowsheetLisa Aichholz [employer]AKE DRIVER Work Phone: noms [facility] FMStart: 05-19-2025 End: 49-26-2331Gvkpauyoe encounterLisa Aichholz [employer]AKE DRIVER Work Phone: noms [facility] FMStart: 05-19-2025 End: 03-86-7515Wqauir outpatient visit 25 minutesLisa Brianhholz STAKE DRIVER Work Phone: noMS [facility] FMComment on above:Moderate episode of recurrent major depressive disorder (HCC) (Primary Dx); Morbid (severe) obesity due to excess calories (CMS-HCC); Candidiasis of breast; Skin pustule; RLS (restless legs syndrome)Start: 05-19-2025 End: 44-31-0010qnippvppagVNTH AICHHOLZNot AvailableStart: 05-12-2025 End: 55-01-0116ZfvaxbSomj Aichholz STAKE DRIVER Work Phone: noms [facility] FMComment on above:Chronic heart failure with preserved ejection fraction (HCC) (Primary Dx); Edema of both lower extremitiesStart: 05-12-2025 End: 60-21-1763sxosknwdxyWmaxoqz [place] Alicia DRAPERFacility:[facility] [place] Start: 04-30-2025 End: 01-20-7549Ifkcovswc Result EncounterGeneric External Data ProviderNOMS External Department UnsolicitedStart: 04-30-2025 End: 22-81-4742Qdtxxogmz Result EncounterGeneric External Data ProviderNOMS External Department UnsolicitedStart: 04-29-2025 End: 39-17-5083VgvowhYxnm Brianhholz STAKE DRIVER Work Phone: NOMS C[facility] FMComment on above:Restless leg syndrome Start: 04-27-2025 End: 76-28-1660HxlxjmIzpw Aichholz STAKE DRIVER Work Phone: NOMS C[facility] FMComment on above:Chronic bilateral low back pain without sciaticaStart: 04-23-2025 End: 64-85-2189NmvjvbGevn Aichholz STAKE DRIVER Work Phone: noms [facility] FMComment on above:Moderate episode of recurrent major depressive disorder (HCC) (Primary Dx)Start: 04-09-2025 End: 30-57-4148Kupjzj flowsheetLisa Aichholz STAKE DRIVER Work Phone: NOMS CWM FMStart: 04-09-2025 End: 60-77-1502Rxfxwy flowsheetLisa Aichholz STAKE DRIVER Work Phone: NOMS CWM FMStart: 04-09-2025 End: 14-49-2955Aclkyn outpatient visit 25 minutesLisa Brianhsuryz STAKE DRIVER Work Phone: NOMS CWM FMComment on above:Moderate episode of recurrent major depressive disorder (CMS/HCC) (Primary Dx); Pulmonary emphysema, unspecified emphysema type (CMS/HCC); Chronic respiratory failure with hypoxia (CMS/HCC); Morbid (severe) obesity due to excess calories (CMS/HCC); Restless leg syndromeStart: 04-09-2025 End: 89-72-9338ksjmsxikffUIDE AICHHOLZNot AvailableStart: 03-24-2025 End: 69-27-7759bkflkygwxfWLAFLIZT E PERRYFacility:EU BellevueStart: 03-24-2025 End: 38-39-7711Xxqlrkh encounter procedureJEADAMARIS BLOUNT [facility] [place] start: 03-10-2025 End: 92-76-1510Ksicntbmh Result EncounterGeneric External Data ProviderNOMS External Department UnsolicitedStart: 03-10-2025 End: 16-08-5848Lhzynxgjo Result EncounterGeneric External Data ProviderNOMS External Department UnsolicitedStart: 03-03-2025 End: 48-69-0537Erjpcubbl Result EncounterLisa Brianhholz STAKE DRIVER Work Phone: noms External Department UnsolicitedStart: 03-03-2025 End: 25-26-6925Cbhuegahc Result EncounterLisa Brianhholz STAKE DRIVER Work Phone: noms External Department UnsolicitedStart: 02-26-2025 End: 41-86-3701JalnznYdaq Aichholz STAKE DRIVER Work Phone: noms CWM FMComment on above:Gastroesophageal reflux disease without esophagitisStart: 02-17-2025 End: 08-88-8308Hxzsdr flowsheetLisa Aichholz STAKE DRIVER Work Phone: noms CWM FMStart: 02-17-2025 End: 89-81-0127Lvwoec flowsheetLisa Aichholz STAKE DRIVER Work Phone: noms CWM FMStart: 02-17-2025 End: 38-17-5709Siegdu outpatient visit 25 minutesLisa Aichholz STAKE DRIVER Work Phone: noms CWM FMComment on above:Edema of both lower extremities (Primary Dx); Spinal stenosis, lumbar region without neurogenic claudication; Chronic heart failure with preserved ejection fraction (CMS/HCC); Chronic respiratory failure with hypoxia (CMS/HCC); Severe persistent asthma, uncomplicated (CMS/HCC); Gastroesophageal reflux disease, unspecified whether esophagitis present; Morbid (severe) obesity due to excess calories (CMS/HCC); RLS (restless legs syndrome); CandidiasisStart: 02-17-2025 End: 19-27-9730ietmmfrzxxMZSI BRIANHHOLZNot AvailableStart: 01-23-2025 End: 30-19-7631bpjcvxuxfzNZJEOhioHealthtart: 01-16-2025 End: 69-51-3655Qgxumv outpatient visit 25 minutesKaylene López STAKE DRIVER Work Phone: noms CWM FMComment on above:Pneumonia [...] recurrent major depressive disorder (CMS/HCC)Start: 01-16-2025 End: 39-83-7180vayqlkrceeBEBT AICHHOLZNot AvailableStart: 01-15-2025 End: 01-79-9299JrrjxgAvcj Aichholz STAKE DRIVER Work Phone: noms CWM FMComment on above:Pneumonia due to infectious organism, unspecified laterality, unspecified part of lung (Primary Dx)Start: 01-02-2025 End: 78-95-6485Pqhexg outpatient visit 25 minutesKaylene López STAKE DRIVER Work Phone: noms CWM FMComment on above:Flu-like symptoms (Primary Dx); Morbid (severe) obesity due to excess calories (CMS/HCC); Body mass index (BMI) 40.0-44.9, adult (CMS/HCC); Pulmonary emphysema, unspecified emphysema type (CMS/HCC); Chronic respiratory failure with hypoxia (CMS/HCC); Essential hypertension (CMS/HCC)Start: 01-02-2025 End: 52-95-2468afbfticpdjRTUV AICHHOLZNot AvailableStart: 01-02-2025 End: 78-90-0965Laorif Jose López STAKE DRIVER Work Phone: noms CWM FMStart: 01-02-2025 End: 73-69-2542Opnzzn Jose López STAKE DRIVER Work Phone: noms CWM FMStart: 01-02-2025 End: 75-11-5524Dciigqlbu Result EncounterGeneric External Data ProviderNOMS External Department UnsolicitedStart: 12-17-2024 End: 41-13-8540Heokge outpatient visit 15 minutesJessica Lazo MD Work Phone: noms SWS DERMComment on above:Seborrheic keratosis (Primary Dx); History of SCC (squamous cell carcinoma) of skin; LentiginesStart: 12-17-2024 End: 60-02-0808pmipvayvazRNEJL A PETITTINot AvailableStart: 12-17-2024 End: 94-18-6678Rmdrpu Clementina KING Work Phone: noms [facility] ORTHOPAEDICSStart: 12-17-2024 End: 38-47-0783Pxzobp Clementina KING Work Phone: noms MIC[facility]EL ORTHOPAEDICSStart: 12-17-2024 End: 84-34-7407letjqttdpvHYDOMQN J MEYERNot AvailableStart: 12-17-2024 End: 99-42-0081Ccowbc outpatient visit 25 minutesMafarrah KING Work Phone: noms FB ORTHOPAEDICSComment on above:Acute pain of right knee (Primary Dx); History of total right knee replacement; Right hip pain; Arthritis of right hipStart: 12-15-2024 End: 08-91-4878CzonwmXitdrrboStephen Reese STAKE DRIVER Work Phone: noms CWM FMComment on above:Moderate episode of recurrent major depressive disorder (CMS/HCC)Start: 12-13-2024 End: 62-22-2855Tiuxwlmichele Lazo MD Work Phone: noms SWS DERMStart: 12-13-2024 End: 03-46-3445Gtigbr flowsheetEmalex Lazo MD Work Phone: noms SWS DERMStart: 12-13-2024 End: 26-18-3342Ujcvbg outpatient visit 10 minutesEmalex Lazo MD Work Phone: noms SWS DERMComment on above:Nevus lipomatosus cutaneus superficialis (Primary Dx); Squamous cell carcinoma of skin of chestStart: 12-13-2024 End: 18-44-5730ovkfslwmcdAYHDZ Meng PETITTINot AvailableStart: 12-05-2024 End: 68-29-6101UsjejaLrvxhagy Reese STAKE DRIVER Work Phone: noms CWM FMComment on above:Restless leg syndrome Start: 11-30-2024 End: 35-12-2678AiatxtUpaokspz Reese STAKE DRIVER Work Phone: NOYF CWM FMComment on above:Gastroesophageal reflux disease without esophagitisStart: 11-28-2024 End: 21-85-0961Mhdhyj flowsheetBrittany Reese STAKE DRIVER Work Phone: NOYL CWM FMStart: 11-28-2024 End: 90-52-9242Zgolft flowsheetBrittany Reese STAKE DRIVER Work Phone: noms CWM FMStart: 11-28-2024 End: 39-67-2390hlobjfwnzlTARVZGES FITZPATRICKNot AvailableStart: 11-28-2024 End: 07-99-9770Vyjdutbbanxw care manage srvc 14 day dischargeBrittany Reese STAKE DRIVER Work Phone: NOGZ CWM FMComment on above:Pulmonary emphysema, unspecified emphysema type (CMS/HCC) (Primary Dx)Start: 11-12-2024 End: 72-79-5913Bdwwar flowsheetBrittany Reese STAKE DRIVER Work Phone: NOMS CWM FMStart: 11-12-2024 End: 25-28-3274Vxrczx flowsheetAida Reese STAKE DRIVER Work Phone: noms CWM FMStart: 11-12-2024 End: 87-23-5119Vkineu outpatient visit 15 minutesBrelissakaushal Reese STAKE DRIVER Work Phone: noms CWM FMComment on above:Chronic obstructive pulmonary disease with acute lower respiratory infection (CMS/HCC) (Primary Dx); Primary HSV infection of mouthStart: 11-12-2024 End: 99-43-6358zxtqhsvvikXCZEWWAK FITZPATRICKNot AvailableStart: 10-26-2024 End: 80-69-1830VdwltvZpcyfyhl Reese STAKE DRIVER Work Phone: noms CWM FMComment on above:Moderate episode of recurrent major depressive disorder (CMS/HCC); Restless leg syndromeStart: 10-17-2024 End: 06-03-2915jasgqesrlyPZXGMYZ [facility] Start: 10-15-2024 End: 85-52-9287suadbckdecDVSCNYXB E PERRYFacility:FTMCStart: 10-15-2024 End: 06-26-8775Guk Drop offJENNIFER E JOSE ALEJANDRO [facility] Start: 10-15-2024 End: 17-89-2859ChtbiyKhdunhxn Reese STAKE DRIVER Work Phone: noms CWM FMComment on above:Moderate episode of recurrent major depressive disorder (CMS/HCC)Start: 10-15-2024 End: 18-89-2300nwneuxckfwCOWBEQZK E PERRYFacility:EU BellevueStart: 10-15-2024 End: 21-06-1708Hkuanhv encounter procedureJENNIFER E JOSE ALEJANDRO [facility] [place] start: 10-12-2024 End: 10-02-5993EvwlepBakclady Reese STAKE DRIVER Work Phone: noms CWM FMComment on above:Urge incontinenceStart: 10-11-2024 End: 34-34-3242Hlnhdl flowsheetJayna Canas PA Work Phone: noms SWS DERMStart: 10-11-2024 End: 62-02-2570Nrbobs flowsheetJayna [facility] Work Phone: NOZV SWS DERMStart: 10-11-2024 End: 40-65-9879Jajwnre encounter procedureJayna [facility]nol[facility] PA Work Phone: noms SWS DERMComment on above:Neoplasm of unspecified behavior of bone, soft tissue, and skin (Primary Dx)Start: 10-11-2024 End: 58-53-3061blssyhuwnbOGYGN NORTHEIMNot AvailableStart: 13-28-5856vmalbcribe MAG PERRYFacility:EU [place]walkStart: 10-07-2024 End: 36-85-1279Jmhujc outpatient visit 15 minutesBrbenson Hartpatrick STAKE DRIVER Work Phone: noms CWM FMComment on above:Urge incontinence (Primary Dx); Morbid obesity with BMI of 40.0-44.9, adult (CMS/HCC); 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; Stage 3a chronic kidney disease (HCC) (CMS/HCC); Chronic respiratory failure with hypoxia (CMS/HCC)Start: 10-07-2024 End: 82-72-2650zadyvycuobYHUFSLKI FITZPATRICKNot AvailableStart: 10-07-2024 End: 12-42-3874Khsbbk flowsheetBrittany Reese STAKE DRIVER Work Phone: NOMS CWM FMStart: 10-07-2024 End: 82-16-6113Jrfvxu flowsheetBrittany Reese STAKE DRIVER Work Phone: noms CWM FMStart: 09-25-2024 End: 08-94-7492TsmbkkMnbqntlt Reese STAKE DRIVER Work Phone: noms CWM FMComment on above:Restless leg syndrome Start: 09-12-2024 End: 07-43-0546rdzppapxwbYisconqu N Reese STAKE DRIVER-C Work Phone: [facility] Work Phone: Start: 09-12-2024 End: 15-68-2542Jinxrgol ReferredAida Reese STAKE DRIVER-C Work Phone: [facility]Start: 09-10-2024 End: 52-62-3887Nnqdev OnlyBrbenson Reese STAKE DRIVER Work Phone: noms CWM FMComment on above:Vaginal guero (Primary Dx)Start: 09-05-2024 End: 65-42-1538Tlywjbth ReferredAida Hartpatrick STAKE DRIVER-C Work Phone: [facility] Rrf-Nzh-Umhlazbk Testing Work Phone: Start: 09-05-2024 End: 94-73-4407Eejcqsg encounter procedureNP-C Aida Vidaltrick Work Phone: [facility] Stk-Gce-Gqxmpjbo Testing Work Phone: Start: 09-05-2024 End: 11-42-4405axmkzfardpWA-C Aida Tenorio Reese Work Phone: [facility] Work Phone: Start: 09-03-2024 End: 63-60-1838LqjmbfFlldJuan SERRANO CWM FMComment on above:Gastroesophageal reflux disease without esophagitisStart: 08-19-2024 End: 24-29-7097Vtricr flowsheetAida Reese STAKE DRIVER Work Phone: noms CWM FMStart: 08-19-2024 End: 36-67-5474Rhvucy flowsheetAida Brannonzpatrick STAKE DRIVER Work Phone: noms CWM FMStart: 08-19-2024 End: 54-89-9236Pnjnbyikmiqp care manage srvc 7 day dischargeEstrellitakaushal Mary Ann STAKE DRIVER Work Phone: noms CWM FMComment on above:Moderate persistent asthma with exacerbation (CMS/HCC) (Primary Dx); Diarrhea, unspecified typeStart: 08-19-2024 End: 93-98-5243pxbpuelcltHVDFEDTN REUBENot AvailableStart: 08-12-2024 End: 86-70-1745Usbzeoygi Result EncounterSlebron Ohara MD Work Phone: noms External Department UnsolicitedStart: 08-12-2024 End: 29-34-6332Mlwafyyus Result EncounterSlebron Ohara MD Work Phone: noms External Department UnsolicitedStart: 08-12-2024 End: 29-62-3953CusymhZhrnopgr Reese STAKE DRIVER Work Phone: noms CWM FMComment on above:Restless leg syndrome Start: 08-08-2024 End: 97-53-1640Von-patient / Sra-ujwgmNJ-O Aida Reese Work Phone: [facility] Work Phone: Start: 08-08-2024 End: 12-20-8315Mfmwwrahp Result EncounterGeneric External Data ProviderNOMS External Department UnsolicitedStart: 08-08-2024 End: 07-03-0609Tqjbayskx Result EncounterGeneric External Data ProviderNOMS External Department UnsolicitedStart: 07-17-2024 End: 57-47-5221CzvfhtSkbu Naderer MD Work Phone: noms CWM FMComment on above:Moderate episode of recurrent major depressive disorder (HCC) (CMS/HCC); Urge incontinenceStart: 07-16-2024 End: 28-62-3744SbfhjgKjyhox Robles MANOMS CWM IMComment on above:Chronic bilateral low back pain without sciaticaStart: 07-15-2024 End: 66-94-6397ifggadepznLwjfuwg Alex Vargas MDFacility:[facility] Start: 07-12-2024 End: 57-35-3156Pwxupjatc Result EncounterBrittany Reese STAKE DRIVER Work Phone: NOHD External Department UnsolicitedStart: 07-12-2024 End: 97-38-1331Tqsirdzav Result EncounterBrittany Reese STAKE DRIVER Work Phone: noms External Department UnsolicitedStart: 07-11-2024 End: 82-90-1559Pcthal flowsheetBrittany Reese STAKE DRIVER Work Phone: noms CWM FMStart: 07-11-2024 End: 25-98-0439Ozzgyw flowsheetBrittany Reese STAKE DRIVER Work Phone: noms CWM FMStart: 07-11-2024 End: 60-55-1070ikshxzhihlWAHMITVHighland District Hospital Start: 07-11-2024 End: 31-84-1653Hssyut outpatient visit 25 minutesBrbenson Vidaltrick STAKE DRIVER Work Phone: noms CWM FMComment on above:Benign essential HTN (CMS/HCC) (Primary Dx); Chronic heart failure with preserved ejection fraction (CMS/HCC); Severe persistent asthma without complication (CMS/HCC); Moderate mixed hyperlipidemia not requiring statin therapy (CMS/HCC); Morbid obesity with BMI of 40.0-44.9, adult (CMS/HCC)Start: 07-02-2024 End: 67-38-5590unnkcqzkcgFYKPEOSWadsworth-Rittman Hospital Start: 17-64-9165Tjm-patient / Grt-topabNR-FZeina Reese Work Phone: [facility] Work Phone: Start: 06-28-2024 End: 15-74-0570Yahyurcfr Result EncounterGeneric External Data ProviderNOMS External Department UnsolicitedStart: 06-28-2024 End: 20-63-9581Heafvqjyl Result EncounterGeneric External Data ProviderNOMS External Department UnsolicitedStart: 51-00-7625swrftueofaBPLYJTFHolzer Medical Center – Jacksontart: 06-24-2024 End: 06-82-5085tahuohcpgiZrurqyvHeaven Vargas MDFacility:[facility] Start: 06-21-2024 End: 67-28-5476ummyxvwpfeYOXGSETWadsworth-Rittman Hospital Start: 05-29-2024 End: 59-54-7625Hnkhklxvb Result EncounterGeneric External Data ProviderNOMS External Department UnsolicitedStart: 05-29-2024 End: 45-26-3962Kccooabai Result EncounterGeneric External Data ProviderNOMS External Department UnsolicitedStart: 05-13-2024 End: 66-82-3943ltcltcliufRRHJ [facility] Centertart: 04-03-2024 End: 72-27-9834Bofaxhoaq Result EncounterSlebron Ohara MD Work Phone: noms External Department UnsolicitedStart: 04-03-2024 End: 49-68-3226Jcledxnpd Result EncounterSlebron Ohara MD Work Phone: noms External Department UnsolicitedStart: 03-27-2024 End: 83-08-0587Srqsgwpel Result EncounterGeneric External Data ProviderNOMS External Department UnsolicitedStart: 03-27-2024 End: 29-39-8887Elkznxywr Result EncounterGeneric External Data ProviderNOMS External Department UnsolicitedStart: 03-14-2024 End: 00-03-2188fpnpeihjgjRlmogf Roshon Work Phone: [facility] Work Phone: Start: 03-14-2024 End: 77-15-1829Wevuiez encounter procedureSteven Josiehon Work Phone: [facility] Nephrology Sridhar Work Phone: Start: 95-53-9795Ppk-patient / Non-visitStenaseem Marinellin Work Phone: [facility] Work Phone: Start: 02-29-2024 End: 91-89-8628Vkqolmmzw Result EncounterLisa Aichholz STAKE DRIVER Work Phone: noms External Department UnsolicitedStart: 02-29-2024 End: 86-61-1968Pyooateid Result EncounterLisa Aichholz STAKE DRIVER Work Phone: noms External Department UnsolicitedStart: 02-13-2024 End: 69-15-4492Inhxlumxo Result EncounterSlebron Ohara MD Work Phone: noms External Department UnsolicitedStart: 02-13-2024 End: 39-91-0166Cvpqhwetf Result EncounterSlebron Ohara MD Work Phone: noms External Department UnsolicitedStart: 02-03-2024 End: 54-16-4689Eyjdislai Result EncounterGeneric External Data ProviderNOMS External Department UnsolicitedStart: 02-03-2024 End: 79-73-3819Masjufylu Result EncounterGeneric External Data ProviderNOMS External Department UnsolicitedStart: 01-26-2024 End: 44-19-4252Qpqmqbuhy Result EncounterSlebron Ohara MD Work Phone: noms External Department UnsolicitedStart: 01-26-2024 End: 11-56-3341Clwanxdvu Result EncounterSlebron Ohara MD Work Phone: noms External Department UnsolicitedStart: 11-06-2023 Patient encounter procedureGeneric ProviderNOIL HealthcareStart: 10-25-2023 End: 49-96-6963Kqbmjsssi Result EncounterGeneric External Data ProviderNOMS External Department UnsolicitedStart: 10-25-2023 End: 39-15-9657Etftnhhwe Result EncounterGeneric External Data ProviderNOMS External Department UnsolicitedStart: 09-07-2023 End: 80-21-6790jlctrhyfniPqpnl Joana Other noXGIMI Other Start: 63-74-1153Pfdjguazl encounterAbdul QadirFPG NephrologyStart: 08-28-2023 End: 90-99-2525qorvqsecqjFiiue Joana Other [employer] Other Start: 79-99-9142Eqvzppnef encounterAbdul QadirFPG NephrologyStart: 08-17-2023 End: 94-48-3869ldigvkmedfUeeru Joana Other noXGIMI Other Start: 09-24-5998Twaktn outpatient visit 25 minutes Herberth QadirFPG Nephrology ClydeStart: 04-04-2023 End: 68-55-5927icpxqluslhYXHBCL Dimitry CARLYDFacility:F2Qgqhy: 03-24-2023 End: 06-08-4166rvbuaorvwzPO STEPH GRANADOSFacility:L1Ciaeu: 03-02-2023 End: 22-35-8617cstkyuibxhWsrdc Joana Other [employer] Other Start: 20-00-7555Xjsnft outpatient visit 25 minutes Herberth QadirFPG Nephrology ClydeStart: 02-25-2023 End: 34-94-3039khvlbbnkkvYRULG QADIRFacility:U9Nmizd: 02-22-2023 End: 81-63-0276jiyjpubmhrQNYPVK SAMSA .Facility:N5Pxnrd: 12-15-2022 End: 90-22-2929bmhrrcrlbpXY JACK HALL .Facility:W2Jgaye: 12-08-2022 End: 67-42-9021Dcvbczthb to same day surgery centerMD Shaikh Ohara Work Phone: [facility] Work Phone: Start: 12-08-2022 End: 19-14-8600yozxiiorifKR Shaikh Lev Work Phone: [facility] Work Phone: Start: 11-11-2022 End: 08-08-9726opyfnwbtqxJR JACK HALL .Facility:T7Ranam: 11-09-2022 End: 79-70-4412qrjctutvyiBjus Carloskathy Other [employer] Other Start: 08-78-4587Rttmroupx encounterAzkatherine TrentFPG NephrologyStart: 08-19-2022 End: 70-31-8771upoxaygihsUNDYA QADIRFacility:I4Edyzj: 08-09-2022 End: 33-72-5182hguumwaolkVcfxj Joana Other noXGIMI Other Start: 12-62-6511Vceuxe outpatient visit 10 minutes Herberth QadirFPG NephrologyStart: 30-73-5400Oulbykoew encounterAbdul QadirFPG NephrologyStart: 82-37-1024Gjxpvpnjh encounterAbdul QadirFPG NephrologyStart: 08-05-2022 End: 83-49-9177fvcxaqvpwuDQJDA QADIRNort [employer] Other Start: 07-08-2022 End: 14-56-6657bdjmsgaeylKkznedcc McCormack Other noXGIMI Other Start: 42-73-2979Ztnrxuafq encounterGato Domingo [facility] GastroenterologyStart: 07-05-2022 End: 68-13-5683bqxbjtutivTOJGMR H FAWWADFacility:X2Zenuu: 06-08-2022 End: 92-22-6783coyfuhmalgDIJTLS H FAWWADFacility:Q1Pzdkm: 06-07-2022 End: 12-32-8114jouviwyyduVFYDSP H FAWWADFacility:M3Hzqzr: 01-24-2022 End: 89-67-6387gswlxilgeyZQEPNYOAV UNKNOWNFacility:UTMCStart: 11-17-2021 End: 02-19-9953qdwsmqcwgbOjahx Joana Other [employer] Other Start: 21-86-4471Wtylfb outpatient visit 15 minutes Herberth QadirFPG NephrologyStart: 93-59-7023Nsryao outpatient visit 15 minutes Rena GintyFPG Urgent Care ClydeStart: 09-11-2020 End: 83-97-4993Rqrui abstractingVivearik Buck Work Phone: Hematology/OncologyStart: 09-11-2020 End: 15-09-9893Egmdmhb encounter procedureExternal ProviderTrihealth Good Sam[facility] Start: 22-25-5956Livrcsq OnlyExternal ProviderExternal-NonCCFStart: 09-30-2019 End: 74-08-9899Syguqqj encounter procedureSteSelect Medical [facility] Main CampusStart: 07-07-2017 End: 18-23-8968Xxsypnxcu to day surgeryE[facility]-Digestive HealthStart: 86-61-8064Vzdvvlxnkc and management of inpatient [facility]-3 WestStart: 20-16-9269Jkxnyjoops and management of inpatientSWil[facility] Procedures DateProcedureProcedure DetailPerforming ClinicianStart: 08-04-2025 Gastrointestinal pathogens panel - Stool by KAYLEE with probe detectionKaylene López NP Work Phone: Start: 98-37-6923Kzmis hip unilateral with pelvis 2-3 viewsGeneric External Data ProviderStart: 25-81-0436SDRTJ CULTURE 2Generic External Data ProviderStart: 87-50-3392NMAXB CULTURE 1Generic External Data ProviderStart: 03-03-2025 End: 25-84-8744Tfhhgesrb mammography bi 2-view breast inc cadKaylene López STAKE DRIVER Work Phone: Start: 64-75-4615DQUZH CULTURE 1Generic External Data ProviderStart: 00-01-5311CAGKQQ COVID-19/FLUKaylene Streeterstephen STAKE DRIVER Work Phone: Start: 12-17-2024 End: 33-15-1819Fzgep hip unilateral with pelvis 2-3 viewsMattcheryl KING Work Phone: Start: 08-76-0600QNHDDANJFBS OF LESIONEmily Meng Lazo MD Work Phone: Start: 55-05-5757KFPA / NAIL BIOPSYRylee Russel KING Work Phone: Start: 41-33-0643Bvftjognws cells LM Ql (Urine sed) Shaikh Lev DRAPER Work Phone: Start: 13-58-6000PZMD STAIN EVALUATIONSlebron Ohara MD Work Phone: Start: 48-85-5374Tjuudnqvwr [#/volume] in BloodShhyacinth Ohara MD Work Phone: Start: 08-31-1976XIYYP RESPIRATORY CULTURESlebron Ohara MD Work Phone: Start: 40-61-6128QJOQLS 1Slebron Ohara MD Work Phone: Start: 48-32-5965ZWDPHE 2Slebron Ohara MD Work Phone: Start: 87-82-9863LDKEFJ 3Slebron Ohara MD Work Phone: Start: 92-47-0893DAORST 4Slebron Ohara MD Work Phone: Start: 51-03-9024ZUDYQ CULTURE 1Generic External Data ProviderStart: 69-10-4607BFYKL CULTURE 2Generic External Data ProviderStart: 87-12-0506IHO CBC WITH AUTO DIFFBrittany Reese STAKE DRIVER Work Phone: Start: 39-06-4704ZYDSC CULTURE 2Generic External Data ProviderStart: 11-53-8797WUQQC CULTURE 1Generic External Data ProviderStart: 23-44-3455OH ECHO DOPPLER COMPLETEGeneric External Data ProviderStart: 27-49-6447UE CHEST 2Kiko Ohara MD Work Phone: Start: 59-07-6197ZC CHEST 2Kiko Ohara MD Work Phone: Start: 08-17-0490AX THORACIC SPINE 3VGeneric External Data ProviderStart: 27-80-7005NV TOMOSYNTHESIS SCREENING BILisa Rene STAKE DRIVER Work Phone: Start: 31-25-5401BdpcmkjwesbBdkzdwm ProviderStart: 76-89-9685WM LUMBAR SPINE WO Joyce Ohara MD Work Phone: Start: 61-22-4800ZZ CHEST 1 VGeneric External Data ProviderStart: 53-02-9475PQ LUMBAR SPINE 2 OR 3Kiko Ohara MD Work Phone: Start: 62-43-8784JK CHEST 2VGeneric External Data ProviderStart: 12-08-2022 End: 09-16-6371QrmcnhecflpOV Shaikh Lev Work Phone: Start: 38-04-2585SVWTBCBJ IMAGINGExternal Provider Start: 34-86-6457IKUTTQNT LABExternal ProviderStart: 84-79-1796MEKUBGLW PROCEDUREExternal ProviderStart: 23-27-6290Ndggbwthcvydlsi of bilateral kidneys Steph RoshonArthroplasty of kneeJENNIFER JOSE ALEJANDRO ColonoscopyJENNIFER JOSE ALEJANDRO Extraction of cataractJENNIFER JOSE ALEJANDRO Insertion of hip prosthesisJENNIFER JOSE ALEJANDRO Ligation of fallopian tubeJENNIFER JOSE ALEJANDRO Plan of Treatment DateCare ActivityDetailAuthorStart: 95-66-9086Atwsyykss for malignant neoplasm of colonNOMS HealthcareStart: 12-15-2026 End: 50-83-3018Ztlrawk encounter procedureNOMS FB ORTHOPAEDICSStart: 07-16-2026 End: 15-36-6093Mbjnyvr encounter eqpiiijje90/10/2026 8:45 AM EDT Office Visit [facility] [address] [place] [address] Jessica Lazo MD [address] [place] [address] [facility] DermatologyStart: 04-09-2026 Urine screening for proteinDiabetes: Urine Protein ScreeningCitizens Memorial Healthcare Comment on above:Postponed from 1975 (Other Medical Reasons)Start: 77-43-3243Cifyhmnlj for malignant neoplasm of breastMammogramNOMS Healthcare Start: 71-20-2156Wpyebwb referralFisher-Titus [facility] Work Phone: Start: 07-17-2025 End: 54-84-2000Mvlpptf encounter xrwbsupiq26/11/2025 9:00 AM EDT Office Visit [facility] [address] [place] [address] Kaylene López NP [address] [place] [id number] WILL TSAI FMStart: 07-16-2025 End: 18-39-5871Yuokuhf encounter gaeuineui52/10/2025 2:45 PM EDT Office Visit [facility] [address] [place] [address] Jessica Lazo MD [address] [place] [address] [place] [address] [facility]ermatologyStart: 07-07-2025 Influenza vaccinationInfluenza Vaccine (#1)[facility] HealthcareStart: 06-17-2025 End: 30-71-1322Cxlauzw encounter procedureNOMS [facility] DERMStart: 05-19-2025 End: 47-45-8625Mmdorim encounter procedureNOMS CW FMComment on above:Moderate episode of recurrent major depressive disorder (HCC) (Primary Dx); Morbid (severe) obesity due to excess calories (CMS-HCC)Start: 04-09-2025 End: 05-10-5013Ailmlcq encounter dwihcuarb63/04/2025 11:00 AM EDT Office Visit [facility] [address] [place] [address] Kaylene López, RIKKI [address] [place] [id number] Pulmonary emphysema, unspecified emphysema type (CMS/HCC) (Primary Dx); Chronic respiratory failure with hypoxia (CMS/HCC); Morbid (severe) obesity due to excess calories (CMS/HCC)[facility] FMComment on above: Pulmonary emphysema, unspecified emphysema type (CMS/HCC) (Primary Dx); Chronic respiratory failure with hypoxia (CMS/HCC); Morbid (severe) obesity due to excess calories (CMS/HCC)Start: 03-26-2025 End: 91-53-8407Fsrkunr encounter vplxajyjt40/21/2025 11:30 AM EDT Office Visit [facility] [address] [place] [address] Kaylene López, RIKKI [address] [place] [address] [facility] FMStart: 75-24-3138Munwrdpxt for malignant neoplasm of breastMammogramNOIL HealthcareStart: 02-17-2025 End: 75-87-7053Kohckya encounter procedureNOALLIANCEHEALTH [facility] [place] FMComment on above:Spinal stenosis, lumbar region without neurogenic claudication (Primary Dx); Chronic heart failure with preserved ejection fraction (CMS/HCC); Chronic respiratory failure with hypoxia (CMS/HCC); Severe persistent asthma, uncomplicated (CMS/HCC); Gastroesophageal reflux disease, unspecified whether esophagitis present; Morbid (severe) obesity due to excess calories (CMS/HCC)Start: 02-16-2025 End: 16-65-2329NZ Breast - bilateral ScreeningBilateral screening mammogram Imaging Routine Screening mammogram for breast cancer Expected: 02/16/2025 (Approximate), Expires: 03/18/2026[facility] Work Phone: Comment on above:Expected: 02/16/2025 (Approximate), Expires: 03/18/2026Start: 01-16-2025 End: 64-69-2455Zlqymqv encounter dwckpyqlj16/13/2025 10:00 AM EDT Office Visit [facility] [address] [place] [address] Kaylene López NP [address] [place] [address] [facility] FMStart: 01-09-2025 End: 13-18-6797Zshxbxp encounter gmzdxxotv55/06/2025 1:40 PM EST Office Visit [facility] [address] [place] [address] Kaylene López, RIKKI [address] [place] [address] [facility] FMStart: 01-09-2025 End: 79-30-7758Gafimxr encounter oeqpappoq65/06/2025 8:30 AM EST Office Visit [facility] [address] [place] [address] Aida Reese NP [address] [place] [address] [facility] FMStart: 01-02-2025 End: 76-27-9549Eiwfgsq encounter /27/2025 2:40 PM EST Office Visit [facility] [address] [place] [address] Kaylene López, STAKE DRIVER [address] [place] [address] Pulmonary emphysema, unspecified emphysema type (CMS/HCC) (Primary [...] rectosigmoid junction (CMS/HCC); Urge incontinenceStart: 12-17-2024 End: 38-61-9704Ycoxtqb encounter procedureNOMS FB ORTHOPAEDICSStart: 12-13-2024 End: 61-02-0258Niteiks encounter procedureNOMS SWS DERMComment on above:Arrived Start: 12-09-2024 End: 14-77-0198Djiswyh encounter /03/2025 2:30 PM EST Office Visit [facility] [address] [place] [address] Aida Reese, RIKKI [address] [place] [address] [facility] FMStart: 11-20-2024 End: 77-56-2999Tvqdpvg encounter procedureNOMS FB ORTHOPAEDICSStart: 11-15-2024 End: 23-14-8535Kdvtisc encounter lgdsezppm90/10/2025 10:30 AM EST Office Visit [facility] [address] [place] [address] Jayna Goode PA [address] [place] [address] [facility] SWS DERMStart: 11-12-2024 End: 94-77-7248LI Chest 2 ViewsXR chest 2 views Imaging Routine Chronic obstructive pulmonary disease with acute lower respiratoryinfection ([facility]/HCC) Expected: 11/12/2024, Expires: 11/12/2025[facility] Work Phone: Comment on above:Expected: 11/12/2024, Expires: 11/12/2025Start: 11-12-2024 End: 18-54-6965Wnxgmos encounter jdioqunmn09/07/2025 10:30 AM EST Office Visit [facility] [address] [place] [address] Aida Reese NP [address] [place] [address] ArrivedNOMS CWM FMComment on above:ArrivedStart: 10-11-2024 End: 94-00-9014Ypdwomg encounter vbicqangy00/06/2024 8:50 AM EST Office Visit [facility] [address] [place] [address] Jayna Goode PA [address] [place] [address] Neoplasm of uncertain behavior of chest wallNOMS SWS DERMComment on above:Neoplasm of uncertain behavior of chest wallStart: 10-09-2024 End: 23-22-6789Caqgbfn encounter /04/2024 9:00 AM EST Office Visit [facility] [address] [place] [address] Aida Reese, STAKE DRIVER [address] [place] [address] [facility] CWM FMStart: 10-07-2024 End: 06-06-9913Swcrpsu encounter ijodmlard68/02/2024 2:30 PM EST Office Visit [facility] [address] [place] [address] Aida Reese, STAKE DRIVER [address] [place] [address] ArrivedNOMS CWM FMComment on above:ArrivedStart: 09-12-2024 Phacoemulsification of cataract with intraocular lens implantationOR Cataract PHACO W/IOL/Vitrectomy (Left)[facility]: 08-19-2024 End: 89-12-8276Qkyisgrqqiqvfc difficile toxin A+B tcdA+tcdB genes [Presence] in Stool by KAYLEE with probe detectionClostridium difficile,EIA Microbiology Routine Diarrhea, unspecified type Expected: 08/19/2024 (Approximate), Expires: 08/19/2025[facility] Work Phone: Comment on above:Expected: 08/19/2024 (Approximate), Expires: 08/19/2025Start: 08-19-2024 End: 60-59-5095Yxvvfjd encounter procedureNOMS CWM FMComment on above:Arrived Start: 07-11-2024 End: 43-42-4693JUQ W Auto Differential panel - BloodCBC and differential Lab Routine Benign essential HTN (CMS/HCC) Chronic heart failure with preserved ejection fraction (CMS/HCC) Moderate mixed hyperlipidemia not requiring statin therapy (CMS/HCC) Morbid obesity with BMI of 40.0-44.9, adult (CMS/HCC) Expected: 07/11/2024 (Approximate), Expires: 07/11/2025[facility] HealthcareComment on above:Expected: 07/11/2024 (Approximate), Expires: 07/11/2025Start: 07-11-2024 End: 39-70-0349Djzvvcbfisaod metabolic 2000 panel - Serum or PlasmaComprehensive metabolic panel Lab Routine Benign essential HTN (CMS/HCC) Chronic heart failure withpreserved ejection fraction (CMS/HCC) Moderate mixed hyperlipidemia not requiring statin therapy (CMS/HCC) Morbid obesity with BMI of 40.0-44.9, adult ([facility]/HCC) Expected: 07/11/2024 (Approximate), Expires: 07/11/2025[facility] HealthcareComment on above:Expected: 07/11/2024 (Approximate), Expires: 07/11/2025Start: 07-11-2024 End: 77-61-5477Xhfci 1996 panel - Serum or PlasmaLipid panel Lab Routine Moderate mixed hyperlipidemia not requiring statin therapy (CMS/HCC) Expected: 07/11/2024 (Approximate), Expires: 07/11/2025[facility] HealthcareComment on above: Expected: 07/11/2024 (Approximate), Expires: 07/11/2025Start: 07-11-2024 End: 88-29-2031Ivxjkgautfvz/Creatinine panel in random UrineMicroalbumin / creatinine urine ratio Lab Routine Benign essential HTN (CMS/HCC) Expected: 07/11/2024 (Approximate), Expires: 07/11/2025[facility] Healthcare Work Phone: Comment on above:Expected: 07/11/2024 (Approximate), Expires: 07/11/2025Start: 07-11-2024 End: 98-70-6315Wjnkrrh encounter procedureNOMS CWM FMComment on above:Benign essential HTN (CMS/HCC) (Primary Dx); Chronic heart failure with preserved ejection fraction (CMS/HCC); Severe persistent asthma without complication (CMS/HCC)Start: 07-07-2024 Influenza vaccinationInfluenza Vaccine (#1)[facility] HealthcareStart: 12-08-2022 [facility]: 46-81-3200Nlxhirucm vaccinationINFLUENZA (#1)[facility]: 86-97-4726YQAJDENP VACCINE (1 of 2)SHINGRIX VACCINE (1 of 2)[facility]tart: 29-92-2279Aboaptvqkecu screeningCOLORECTAL CANCER SCREENING,SEE MODIFIEROhioHealth Dublin Methodist Hospitaltart: 44-66-9819ZPFIQECL SCREENDIABETES SCREENOhioHealth Dublin Methodist Hospitaltart: 45-55-5586RBSSZ SCREENLIPID SCREENTrihealth Good Samaritan Hospital Start: 94-98-2173WgazrpvjurzJBDVMNFIDHvzuyujyu ClinicStart: 65-65-1891CKU TESTINGHPV TESTINGOhioHealth Dublin Methodist Hospitaltart: 47-28-3179CGK TESTINGPAP TESTING [facility] Hospitaltart: 73-43-3217Boiwq microalbumin profileDTAP,TDAP,TD (1 - Tdap)[facility] Hospitaltart: 93-16-1022Acuby screening for proteinDiabetes: Urine Protein ScreeningCitizens Memorial HealthcareStart: 49-76-7309VXCBPWUIZ C SCREENINGHEPATITIS C SCREENINGOhioHealth Dublin Methodist Hospitaltart: 37-47-7482MSC SCREENINGHIV SCREENINGOhioHealth Dublin Methodist Hospitaltart: 12-63-7013Bdyxobyd screeningDiabetes: Retinopathy ScreeningMO[facility] HealthcareStart: 56-71-4798Kgcfsidfwc A1c measurementDiabetes: Hemoglobin A1C [facility] HealthcareStart: 50-74-9794Pzxzrfjfc for malignant neoplasm of colonNOMS HealthcareBLOOD CULTURE [...] CULTURE 2 Lab Routine 06/28/2024 8:21 PM EDTNOIL HealthcareBLOOD CULTURE 2BLOOD CULTURE 2 Lab Routine 03/10/2025 10:32 PM EDT [facility] HealthcareComprehensive metabolic 2000 panel - Serum or PlasmaKettering HealthDermatopathology examDermatopathology exam Pathology and Cytology Timed Neoplasm of unspecified behavior of bone, soft tissue, and skin Release Upon Ordering for 1 Occurrences starting 10/11/2024[facility] Work Phone: comment on above:Release Upon Ordering for 1 Occurrences starting 10/11/2024LOWER RESPIRATORY CULTURELOWER RESPIRATORY CULTURE Lab Routine 08/12/2024 9:[facility] Work Phone: Patient EducationColon Polypectomy Hemorrhoids (DC) Diverticulosis (DC)[facility] Work Phone: [facility] referral[facility] Work Phone: Urine [facility] Immunizations Immunization DateImmunizationNotesCare TegnxfmiHejwgjxy05-94-6157xjaozoknq, high dose seasonal, preservative-freeLisa Rene STAKE DRIVER Work Phone: [facility] HealthcareBcwmvxigpz33-33-8538ogpbyfeya virus vaccine, unspecified formulationAida Reese STAKE DRIVER Work Phone: [facility]10-21-2023Influenza, High-dose Seasonal, Quadrivalent, Preservative Free Generic [facility] NetworkWgaklhdagu37-23-2447vkdavnzdx virus vaccine, unspecified formulationGeneric ProviderExec[facility]10-13-2023RSV, recombinant, protein subunit RSVpreF, adjuvant reconstitu, 120mcg/0.5mL, PF (Arexvy)Generic [facility]10-04-2023 Pneumococcal Conjugate PCV 20Generic [facility] NetworkCkxmuwugpp33-39-9488fnijkw vaccine recombinantGeneric [facility] NetworkZjwgieuirl24-32-7458wtytkl vaccine recombinantGeneric [facility] NetworkZonxvfgoff92-42-9737fhgrngfxg virus vaccine, unspecified formulationJENNIFER JOSE ALEJANDRO [facility]09-29-2022Influenza, High-dose Seasonal, Quadrivalent, Preservative Free Generic [facility] NetworkXajdfivxlz54-05-6207YUTT-VuE-9 (COVID-19) mRNAMUL.ORD!c12774XPZFOWCX JOSE ALEJANDRO [facility]05-20-2022SARS-CoV-2 (COVID-19) mRNA-1273 vaccineJENNIFER JOSE ALEJANDRO [facility]11-01-2021SARS-CoV-2 (COVID-19) mRNA-1273 vaccineJENNIFER JOSE ALEJANDRO [facility]10-01-2021influenza virus vaccine, unspecified formulationJENNIFER JOSE ALEJANDRO [facility]10-01-2021Influenza, High-dose Seasonal, Quadrivalent, Preservative Free Generic [facility] NetworkAepdkbaffn08-38-3251AVOV-KxF-6 (COVID-19) mRNA-1273 vaccine MAG JOSE ALEJANDRO [facility] on above:Result Comment: 2025-03-24: IOJ6806-74-6557XMQF-SpE-1 (COVID-19) mRNA-1273 vaccineJENNIFER JOSE ALEJANDRO [facility] on above:Result Comment: 2025-03-24: BJW8246-91-3855gthxphbtd virus vaccine, unspecified formulationJENNIFER JOSE ALEJANDRO [facility]10-02-2020influenza, injectable, quadrivalent, preservative freeGeneric [facility] NetworkYrafxtcacs86-24-6725wmmtnztjb virus vaccine, unspecified formulationJENNIFER JOSE ALEJANDRO [facility]10-04-2019influenza, injectable, quadrivalent, preservative freeGeneric [facility] NetworkBclmlladmm92-68-8892dgdqhdasevlr polysaccharide vaccine, 23 valent Generic [facility] NetworkPbfgxipwej45-29-0117omtttkzlg virus vaccine, unspecified formulationJENNIFER JOSE ALEJANDRO [facility]10-03-2018influenza, injectable, quadrivalent, preservative freeGeneric [facility] NetworkNudhacgplq20-23-1486Pawm-Ugtdcm 40 mgAmber Ginty Other [employer] Other 03-606148-13-0588Sdrm-Ltooil 40 mgAmber Ginty Other [employer] Other 10-947254-39-5323hhgdszuum virus vaccine, unspecified formulationJENNIFER JOSE ALEJANDRO [facility]10-05-2017influenza, injectable, quadrivalent, preservative freeGeneric [facility] NetworkSzhssvtunz97-72-4168skzudcttk virus vaccine, split virus (incl. purified surface antigen)Generic [facility] NetworkDrfiwwskjk31-47-8562aaatvtzbi virus vaccine, unspecified formulationSteven Roshon Work Phone: [facility]10-04-2017influenza, seasonal, injectable, preservative freeAmber Ginty Other [employer] Other 10-658366-67-2252nwvin xslydases-J1L8-27, preservative-free, injectableGeneric [facility] Payers DatePayer CategoryPayerPolicy [id number] 2025Medicaid [id number] 2024 Medicare (Managed Care)[id number] Private Health [id number]-[id number]8Txzuqts [id number] [id number] 2020Medicaid [id number] 2020MedicaidMEDICAID [facility] MEDICAID [id number] 2019-Present [id number] 2017Medicare [id number] 2016MedicareMEDICARE MEDICARE A AND B [id number] 2016-Present [place] [id number] 1.2.840.789963.1.13.159.2.7.3.726084.27[id number] [id number] 2.16.840.1.330414.3.579.2.94410-80-1064Xtnjchd1143970 2.16.840.1.668046.3.579.2.94310-51-9290Wqvlbwz0507098 2.16.840.1.392274.3.579.2.73725-08-5368Bwjayva1899226 2.16840.1.141260.3.579.2.27662-52-3776Ddzbeab2813971 2.16840.1.671325.3.579.2.87262-97-2160Ocvoifc1623236 2.16840.1.418957.3.579.2.28485-96-8154Bkeolxi8022740 2.16840.1.623572.3.579.2.38554-42-6649Glcwurl9036978 2.16840.1.240006.3.579.2.14012-18-6604Abxrkit3642032 2.16840.1.987358.3.579.2.31090-68-5586Bazpmqw1609341 2.16840.1.146563.3.579.2.33503-46-1320Imavxef1409412 2.16840.1.339752.3.579.2.49912-51-6966Txqsoco3280648 2.16840.1.091773.3.579.2.51026-41-1957Rlwcaal35207607 2.16840.1.146484.3.579.2.31691-40-8497Nqilnnc39372750 2.16840.1.805800.3.579.2.79105-69-5582Rxoaryr18222418 2.16840.1.283661.3.579.2.60065-72-8037Ajtwtpg909484793 2.16840.1.315230.3.579.2.51331-28-4837Pvozcon631424814 2.16840.1.315089.3.579.2.35499-34-6369Cpmxghp701724769 2.0.1.620584.3.579.2.40186-48-2208Lxzjiwc28058164 2.0.1.527711.3.579.2.028131-56-4004Uvnmfvf59243315 2.0.1.853734.3.579.2.769322-62-9643Irpsryj93499860 2.0.1.068537.3.579.2.451294-44-5318Lrijtlm5866166 2.0.1.668290.3.579.2.670555-84-1421Hsayijc6516174 2.0.1.326790.3.579.2.550218-28-8537Dwfwsoe4604410 2.0.1.501858.3.579.2.743367-94-8099Maicbwg5149589 2..1.615162.3.579.2.864113-34-2993Tpynera7968376 2..1.733823.3.579.2.699383-47-8477Qoikxxw8063169 2..1.317666.3.579.2.923210-81-1871Hwbqnnv6948364 2.0.1.912211.3.579.2.716229-58-1607Iycxhkh6023467 2.840.1.941907.3.579.2.188223-84-4781Leyumxb1913867 2.840.1.683665.3.579.2.832041-54-5077Ngcjigp2880720 2.0.1.083365.3.579.2.539492-06-8539Uzhbukl0276880 2.16.840.1.213677.3.579.2.641814-26-5628Yvwdqbo2384408 2.16.840.1.644680.3.579.2.908657-63-7304Isqgcwi1900230 2.16.840.1.173886.3.579.2.636829-95-9621Zarzxqo39254242 2.16.840.1.562078.3.579.2.62665-29-0800Lukratv13060893 2..0.1.221183.3.579.2.82231-04-9107Xtusvsd83382757 2..0.1.603236.3.579.2.35176-28-6075Kkkohuu41315564 2.16.840.1.94[id number]-hwtHuje Pay [id number] Social History DateTypeDetailFacilityTobacco smoking status NHISUnknown if ever smokedMercy Health Fairfield Hospital CtrStart: 67-28-3092Htk Assigned At BirthFeRegency Hospital Companytart: 09-11-2020 End: 73-45-2046Oblsfki smoking status NHISNever smokerLutheran Hospitaltart: 09-11-2020 End: 61-17-7903Dinbzdo use and exposureNever usedOhioHealth Dublin Methodist Hospitaltart: 09-11-2020 End: 61-31-3030Hbmwncb intakeLifetime non-drinker (finding)[facility] Start: 80-63-1640Cgzjcdj SDOH Alcohol Ublzaxvbz6Ljfciyeuq ClinicStart: 56-72-3145Qxq Assigned At BirthNot on fileClesouthwest general health center ClinicStart: 10-26-2023 End: 36-10-0940Kum Assigned At BirthNOIL HealthcareStart: 10-26-2023 End: 35-18-9102Abfgsmg of Social functionNOMS HealthcareWithin the last year, have you been afraid of your partner or ex-partner?NoNOMS HealthcareAre you now , , , , never or living with a partner? DivorcedNOMS HealthcareHow often to you have a drink containing alcohol?Never [facility]S HealthcareStart: 02-17-8329Mjz many standard drinks containing alcohol do you [...] money to buy more.Never trueNOMS Healthcare Start: 14-80-9903Kmoxdyz Commentcaffeine: more than 4 cups per dayNOIL HealthcareStart: 02-17-2010 End: 45-66-7605GzvDtpkuz ([facility] HealthHow hard is it for you to pay for the very basics like food, housing, medical care, and heatingSomewhat hardNOMS HealthcareDo you feel stress - tense, restless, nervous, or anxious, or unable to sleep at night because yourmind is troubled all the time - these days [OSQ]Only a littleNOMS HealthcareSexual Orientation [facility] NEGATED: Highlighted rowStart: NINFHistory of tobacco usePassive smokerNOMS Healthcare Goals DatePatient GoalDesired Activity/StatePersonal health goal Functional Status HksuRnpbpifzpuDnmdskDejlmecd00-84-0655Jewgzlwuel StatusN/AExecutive [facility]rology of [facility]01-20-2025Total score [AUDIT-C]0 11/25/2024 4:37 PM EST Mychart, GenericCitizens Memorial HealthcareTykeaxtboj43-81-0847Grw often do you have a drink containing alcohol?Never 11/25/2024 4:37 PM EST Mychart, Generic NeverCitizens Memorial HealthcareSxainvpnww37-83-3583Ildnjhpkkn statusPatient does not drink 11/25/2024 4:37 PM EST Mychart, Generic Patient does not drinkCitizens Memorial HealthcareGnrmgjlmik44-33-9317Lfb often do you have 6 or more drinks on 1 occasion?Never 11/25/2024 4:37 PM EST Mychart, Generic NeverCitizens Memorial HealthcareLwknczprzs97-51-5878Vcpliwhhln StatusN/AExecutive Urology [facility]08-07-2024Patient Health Questionnaire 2 item (PHQ-2) [Reported][facility] HealthcareLmmxlmjapj09-77-4315Ubtfjek Health Questionnaire 2 item (PHQ-2) [Reported][facility] HealthcareJpvxmyjhjy84-78-4101Fusetwo Health Questionnaire 2 item (PHQ-2) [Reported][facility] HealthcareJcferceodi48-00-0454Yvnjclo Health Questionnaire 2 item (PHQ-2) [Reported][facility] HealthcareFrgqejvzeq21-96-7674Khnuxeg Health Questionnaire 2 item (PHQ-2) [Reported][facility] Clinical Notes 08-30-2021 to 07-22-2025 Note Date & ZcirXcsvNkcysfrj76-96-8495 Hospital Discharge instructions Patient Education 07/22/2025 09:50:03 [...] your health care provider. General instructions Take erbd-scs-ghvpqov and prescription medicines only as told by [...] provider. Document Revised: 07/12/2021 Document Reviewed: 07/12/2021 [employer] Patient Education 2023 [employer]. 07/22/2025 09:50:03 Urinary Incontinence Urinary Incontinence Urinary [...] nerve stimulation). ?For women, using a medical social consultant to prevent urine leaks. This is a [...] right after experiencing incontinence. General instructions Take jfzq-bkw-ctmuhar and prescription medicines only as told by [...] important. Where to find more information National [employer] of Diabetes and Digestive and Kidney Diseases: www.niddk.nih.gov [employer] [employer]: www.urologyhealth.org Contact a health care [...] provider. Document Revised: 05/28/2021 Document Reviewed: 05/28/2021 [employer] Patient Education 2023 [employer] Follow Up Care 07/18/2025 09:18:17 With:Amalia Stephens PA-C, YANY Address: When:Within 2 Month(s) Comments:w/ PVR [facility] 09-16-2025 NotePatient Education Obstetrics and Gynecology [...] health care provider. General instructions ??? Take bdpd-dzl-iaymiii and prescription medicines only as told by [...] you drink, and whe (more content not included)...[facility]09-11-2025 Evaluation note* Diagnosis Onset Date Resolution [...] 10:02amStage 3 chronic kidney diseaseacuteSeptember 2024 10:02am [facility] Work Phone: 1(898) 858-697709-11-2025 Evaluation note* Diagnosis Onset Date Resolution Status [...] obesity due to excess caloriesacuteOctober 2024 8:39am [facility] Work Phone: 1(561) 460-690209-10-2025 History of Present illness Narrative* Jessica Lazo [...] SCC (SQUAMOUS CELL CARCINOMA) OF SKIN Chest [facility] No evidence of recurrence at [...] 1 year, skin check documented in this encounterCitizens Memorial HealthcareIkknlszlvq77-03-0339 Telephone encounter Note* Telephone Encounter - Kaylene [...] if no help let me know [place] [facility] HealthcareMkfzxqasto70-57-2040 Miscellaneous Notes* Telephone Encounter - Kaylene López [...] let me know [place] documented in this encounterCitizens Memorial HealthcareHzsvhgqbnw08-28-0901 History of Present illness Narrative* KATE MTZ [...] (HCC) Chronic kidney disease, stage III (moderate) ([facility]) Chronic obstructive pulmonary disease (COPD) [...] Morbid obesity with BMI of 40.0-44.9, adult ([facility]) Osteoporosis screening Pneumonia Positive depression [...] 03/[address] LINN SPINAL FUSION 05/07/2003 [facility] TOTAL HIP ARTHROPLASTY Left 08/30/2019 REMOVED TOTAL [...] Morbid (severe) obesity due to excess calories ([facility]-HCC) Discussed with patient their BMI (actual, [...] does not take any documented in this encounterCitizens Memorial HealthcareAzdeghuida54-23-0101 History of Present illness Narrative* Kaylene López NP - 04/09/2025 12:37 PM EDTAssociated Problem(s): Depression ([facility]/HCC) Current med paxil Will add on medication * KATE MTZ - 04/09/2025 11:00 AM EDT 3L * Kaylene López NP - 04/09/2025 11:00 AM EDT Images from the original note were not included. Diana Champion is a 69 y.o. female presents with chief complaint of Hospital Follow-up HPI: Here for hospital follow up: [facility]. Now at home: breathing has [...] 03/[address] LINN SPINAL FUSION 05/07/2003 [facility] TOTAL HIP ARTHROPLASTY Left 08/30/2019 REMOVED TOTAL [...] This Visit Chronic obstructive pulmonary disease (COPD) ([facility]) Current meds: albuterol nebs and inhaler, trelegy, oxygen Follows with Pulmonology [facility] Depression ([facility]) - Primary Current med paxil [...] invasive vent at night Johny is managing admissions rn * Kaylene López NP - 04/09/2025 6:31 [...] oxygen dependant, non invasive vent at night Johyn is managing admissions rn * Kaylene López NP - 04/09/2025 6:31 AM EDTAssociated Problem(s): Chronic obstructive pulmonary disease (COPD) (CMS/HCC) Current meds: albuterol nebs and inhaler, trelegy, oxygen Follows with Pulmonology Johny documented in this encounterCitizens Memorial [id number] Instructions* Patient Instructions* Kaylene López NP - 04/09/2025 11:00 AM EDT Will add on med for depression, will call pt w decision documented in this encounterCitizens Memorial [id number] Hospital Discharge instructions Patient Education 03/24/2025 10:43:28 [...] your health care provider. General instructions Take slwy-vcq-cnakble and prescription medicines only as told by [...] provider. Document Revised: 07/12/2021 Document Reviewed: 07/12/2021 SpeechTrans Patient Education 2023 [employer]. Follow Up Care 10/15/2024 15:05:18 With:AMG BLOUNT PA-C, URL Address: [address] [place] [address]. [place] [address] When:Within 3 Month(s) [facility] 05-19-2025 NotePatient Education Obstetrics and Gynecology [...] health care provider. General instructions ??? Take rbiq-tow-vjhruhd and prescription medicines only as told by [...] you drink, and whe (more content not included)...[facility]04-14-2025 History of Present illness Narrative* Kaylene López, STAKE DRIVER - 02/17/2025 9:03 AM EDTAssociated Problem(s): Edema [...] ferrous sulfate 325 mg, Daily with breakfast Zpotzggspvb-Shpguaimn-Fonlbv (Trelegy Ellipta) 200-62.5-25 MCG/ACT aerosol powder 1 [...] Morbid obesity with BMI of 40.0-44.9, adult ([facility]/HCC) Osteoporosis screening Pneumonia Positive depression screening Post-menopausal Restless leg syndrome Right hip pain Urge incontinence Vitamin D deficiency Past Surgical History: Procedure Laterality Date BACK SURGERY 2004 CARDIAC CATHETERIZATION Left 06/14/2014 Left Heart-Ventricular Puncture CARDIAC CATHETERIZATION Left 08/13/2018 Left Heart-Ventricular Puncture FOOT SURGERY 09/2015 JOINT REPLACEMENT Left 08/01/2016 Hip replacement REVISION TOTAL HIP ARTHROPLASTY Left 03/[address] LINN SPINAL FUSION 05/07/2003 [facility] TOTAL HIP ARTHROPLASTY Left 08/30/2019 REMOVED TOTAL [...] elevated right sided pressure at 66 [facility] Cardiology Gastroesophageal reflux disease Recommendations: freq small [...] invasive vent at night [facility] is managing admissions rn Edema of both lower extremities Elevate legs [...] oxygen dependant, non invasive vent at [facility] * Kaylene López NP - 02/17/2025 6:08 [...] elevated right sided pressure at 65 [facility] Cardiology documented in this encounterCitizens Memorial HealthcareQlguuwhzov85-31-2175 [facility] Chief Complaint: Patient here for 8 mo follow up CAD and hypertension. She's been in and out of [facility] for pneumonia recently. Had echo a [...] breath since then. She has seen her admissions rn. Her chest pain is noncardiac. She has [...] history of Allergic rhinitis, Anemia, Asthma, Cancer ([facility]), Chronic heart failure with preserved ejection fraction ([facility]), Chronic hypoxic respiratory failure ([facility]), Chronic kidney disease, COPD (chronic obstructive pulmonary disease) ([facility]), Coronary artery disease, Depression, Diabetes mellitus ([facility]), Dyspnea, GERD (gastroesophageal reflux disease), Hyperlipidemia, Lumbar spondylosis, Other secondary pulmonary hypertension ([facility]), Pneumonia, Primary osteoarthritis of right [...] mouth every other day., Disp: , Rfl: ibboltleiko-kzldscjur-spswuhdl 100-62.5-25 mcg blister with device, , Disp: [...] mg tablet, YOKO (more content not included)... [facility]03-13-2025 History of Present illness Narrative* Kaylene [...] new atb and sputum result. She will crop picker new atb after appt. * Kaylene [...] chills, +weakness, has home health Nurse from [facility] coming today, not sure if any [...] ferrous sulfate 325 mg, Daily with breakfast Czezdbgzzor-Liiojfwej-Wtehca (Trelegy Ellipta) 200-62.5-25 MCG/ACT aerosol powder 1 [...] History: Diagnosis Date Alcohol screening Arthritis Asthma ([facility]/HCC) At moderate risk for fall Benign essential HTN ([facility]) Breast cancer screening by mammogram Chronic back pain greater than 3 months duration Chronic heart failure with preserved ejection fraction ([facility]) Chronic kidney disease, stage III (moderate) (HCC) ([facility]) Chronic obstructive pulmonary disease (COPD) ([facility]/HCC) Colon cancer ([facility]/HCC) Colorectal cancer ([facility]) Contact w and exposure to oth viral communicable diseases COPD exacerbation ([facility]) Coronary artery disease ([facility]/HCC) Depression ([facility]) Emphysema, unspecified ([facility]) Encounter for gynecological examination (general) (routine) without abnormal findings Essential (primary) hypertension ([facility]) Exposure to STD Gastroesophageal reflux disease General deterioration of health HPV in female Hyperlipidemia ([facility]/HCC) Hyperuricemia Intertrigo Iron deficiency anemia Low back pain Morbid obesity with BMI of 40.0-44.9, adult ([facility]) Osteoporosis screening Pneumonia Positive depression [...] 03/[address] LINN SPINAL FUSION 05/07/2003 [facility] TOTAL HIP ARTHROPLASTY Left 08/30/2019 REMOVED TOTAL [...] daily for 7 day Recent hospitalization to [facility]: back to back, 01/02/25 and [...] elevated right sided pressure at 65 [facility] Cardiology * Kaylene López NP - 01/16/2025 [...] daily for 7 day Recent hospitalization to [facility]: back to back, 01/02/25 and [...] daily for 7 day documented in this encounterCitizens Memorial HealthcareOarhaskwps55-94-2862 History of Present illness Narrative* Kaylene López NP - 01/02/2025 3:28 PM ESTAssociated Problem(s): Flu-like symptoms Neg, still strong clinical suspicion for flu, d/t severe pulmonary conditions and weakness will send her to [facility] ER for evaluation DD: pneumonia, covid, flu, RSV * Kaylene López NP - 01/02/2025 3:26 PM ESTAssociated Problem(s): Chronic respiratory failure with hypoxia (CMS/HCC) Oxygen level 88-90% w walking, normal 94-95% w oxygen * Kaylene López NP - 01/02/2025 3:25 PM ESTAssociated Problem(s): Chronic obstructive pulmonary disease (COPD) (CMS/HCC) Johny admissions rn * KATE MTZ - 01/02/2025 2:40 PM [...] have been sick [facility] admissions rn Flu Symptoms This is a new problem. [...] ferrous sulfate 325 mg, Daily with breakfast Xhmmaauwvoy-Amupvyzqw-Kafhlu (Trelegy Ellipta) 200-62.5-25 MCG/ACT aerosol powder 1 [...] Morbid obesity with BMI of 40.0-44.9, adult ([facility]) Osteoporosis screening Pneumonia Positive depression [...] 03/[address] LINN SPINAL FUSION 05/07/2003 [facility] TOTAL HIP ARTHROPLASTY Left 08/30/2019 REMOVED TOTAL [...] This Visit Chronic obstructive pulmonary disease (COPD) ([facility]/HCC) [facility] admissions rn Morbid (severe) obesity due to excess calories ([facility]/HCC) Discussed with patient their BMI (actual, verses recommended). We have also discussed lifestyle modifications: attempts to perform physical activity as chronic conditions allow, also to monitor dietary intake: increasing protein/fruits/veggies and lowering carb intake (unless contraindicated). Limit sodas, juices, and sugary drinks. Essential hypertension ([facility]) DASH diet Limit caffeine Contact office if chest pain, pressure, dizziness, shortness of breath, swelling legs Recommend slow position changes Current meds: does not take any Chronic respiratory failure with hypoxia ([facility]) Oxygen level 88-90% w walking, normal 94-95% w oxygen Body mass index (BMI) 40.0-44.9, adult ([facility]) Flu-like symptoms - Primary Neg, still strong clinical suspicion for flu, d/t severe pulmonary conditions and weakness will send her to [facility] ER for evaluation DD: pneumonia, [...] Problem(s): Chronic kidney disease, stage 3a (HCC) ([facility]/HCC) Monitor labs * Kaylene López NP [...] 01/02/2025 7:23 AM ESTAssociated Problem(s): Essential hypertension ([facility]/HCC) DASH diet Limit caffeine Contact office if chest pain, pressure, dizziness, shortness of breath, swelling legs Recommend slow position changes Current meds: does not take any documented in this encounterCitizens Memorial HealthcareDogzehnxgf11-27-2420 History of Present illness Narrative* Jessica Lazo [...] Next Visit: 6 months documented in this encounterCitizens Memorial HealthcareYszndrfpid20-65-6734 History of Present illness Narrative* CHRISTINE Alexander [...] ferrous sulfate 325 mg, Daily with breakfast Xqseeunfalm-Ixgqxcgtc-Iugeri (Trelegy Ellipta) 200-62.5-25 MCG/ACT aerosol powder 1 [...] be necessary. Pt will consult with her [facility] Director to see if she would be a [...] for requiring urgent evaluation. documented in this encounterCitizens Memorial HealthcareUhnngyxrbo09-64-3593 History of Present illness Narrative* Jessica Lazo [...] skin of chest Chest - Medial (Center) [place] macule at the biopsy site. Destr of lesion Complexity: simple Destruction method: cryotherapy Informed consent: discussed and consent obtained Informed consent comment: The risks of the procedure were discussed, including, but not limited to risks of scarring, darker or wire frame lampshade maker pigmentary changes, recurrence, infection, and incomplete removal [...] or tenderness. Additional details: Previous accession number: [id number] Discussed treatment options excision vs cryotherapy in detail. Patient opted for cryotherapy. Cryotherapy completed today, see procedure note. Return to clinic prior to next scheduled visit for any signs or symptoms of recurrence, reviewed the signs and symptoms. Recommended 6 month skin exam. Next Visit: as scheduled documented in this encounterCitizens Memorial HealthcareBxfcghzjtp75-80-8899 History of Present illness Narrative* Aida Reese NP - 11/28/2024 1:37 PM ESTAssociated Problem(s): Chronic obstructive pulmonary disease (COPD) ([facility]) Was admitted to [facility] for [...] This Visit Chronic obstructive pulmonary disease (COPD) ([facility]) - Primary [facility] [...] ESTAssociated Problem(s): Chronic obstructive pulmonary disease (COPD) ([facility]) 5 days ago woke up, [...] This Visit Chronic obstructive pulmonary disease (COPD) ([facility]) - Primary 5 days ago [...] Age: 69 y.o. : 1955 Account No.: [id number] Referring physician: Dr. Bo Mcclain Chief complaint: Recurreny pneumonia HPI Diana Champion is a 69 y.o. female with PMHx of chronic hypoxic respiratory failure on 3L home O2, tracheobronchomalacia who is presenting to clinic for follow up. Patient was previously referred by Dr. Bo Mcclain of [facility] in June of 2024. Patient had been having frequent pneumonias requiring hospitalization thought to be secondary to dynamic airway collapse. Therefore we performed bronchoscopy with airway inspection on 07/02/2024 which showed severe tracheobronchomalacia with mucous plugging. She subsequently followed up post procedure and different treatment options were discussed. She was hesitant to undergo APC or tracheal bronchoplasty at [facility] and instead opted to trial CPAP [...] years. 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 Her family history is positive for COPD [...] Diagnosis Date Allergic rhinitis Anemia Asthma Cancer ([facility]) Chronic heart failure with preserved ejection fraction ([facility]) Chronic hypoxic respiratory failure ([facility]) Chronic kidney disease COPD (chronic obstructive pulmonary disease) ([facility]) Coronary artery disease Depression Diabetes mellitus ([facility]) Dyspnea GERD (gastroesophageal reflux disease) Hyperlipidemia Lumbar spondylosis Other secondary pulmonary hypertension ([facility]) Pneumonia Primary osteoarthritis of right [...] 325 mg by bessie (more content not included)...[facility]12-10-2024 Hospital Discharge instructions Patient Education 10/15/2024 [...] your health care provider. General instructions Take vcpa-ipi-mjsgooq and prescription medicines only as told by [...] provider. Document Revised: 07/12/2021 Document Reviewed: 07/12/2021 SpeechTrans Patient Education 2023 [employer]. Follow Up Care 10/11/2024 14:37:09 With:JOSE ALEJANDRO MICHAUD, MAG Hester, URL Address: [address] [place] [phone] When:Within 3 Month(s) [facility] 12-10-2024 NoteUrology Office/Clinic Note Chief Complaint [...] kg WT: 235.894 lb BMI: 40.27 Assessment/Plan [facility] CKD - Joana COPD/Pulm [...] could include cysto, urodynamics, Botox, SNM. Orders: 93879 Measure Post Void residual urine and/or bladder capacity by US- non-imaging E&M of New Patient Moderate 45-59 Min 99671 Urine Culture Urnls Dip Stick Auto w/o Microscopy POC 60654 Follow-up With When Contact Information MAG BLOUNT PA-C, URL In 3 months [address] [place] [address] Additional Instructions: Patient Education Overactive [...] 1 drop(s) Allergies f (more content not included)...[facility] HospitalComment on above: Result Comment: Electronically Signed By: MAG BLOUNT PA-C\.br\Date and Time Signed: 10/15/2416:57 [id number] NotePatient Education Obstetrics and Gynecology Overactive Bladder, [...] health care provider. General instructions ??? Take kihb-kew-gbhvokq and prescription medicines only as told by [...] you drink, and whe (more content not included)...[facility]12-06-2024 History of Present illness Narrative* CHRISTINE [...] Visit: pending biopsy results documented in this encounterCitizens Memorial HealthcareHmbfubjwyn49-24-3773 History of Present illness Narrative* Aida Reese [...] Pulmonology- Dr. Mcclain and Dr. Yoo Cardiology- [facility] Ortho- Dr. Corrales Nephrology- Dr. [...] Ambulatory referral to Dermatology documented in this encounterCitizens Memorial HealthcareRoshuoleun11-64-7237 Telephone encounter Note* Telephone Encounter - Rukhsana Rutherford MA - 09/03/2024 11:22 AM EDT Pt requesting a refill on her Omeprazole BECK:08/19/2024 NOV:10/09/2024 Citizens Memorial HealthcareRmvbvdpuad79-65-6488 Miscellaneous Notes* Telephone Encounter - Rukhsana Rutherford MA - 09/03/2024 11:22 AM EDT Pt requesting a refill on her Omeprazole BECK:08/19/2024 NOV:10/09/2024 documented in this encounterCitizens Memorial HealthcareGjpsdevbtb18-54-3370 Telephone encounter Note* Telephone Encounter - Mag [...] time getting it in last time. MAYANK Citizens Memorial HealthcareMbffasjwnh91-93-7483 Miscellaneous Notes* Telephone Encounter - Mag Byers [...] spelled that right) nurse phone number is [phone] or you can contact patient she said. JN documented in this encounterCitizens Memorial HealthcareWxzwzqfrgr66-12-4550 History of Present illness Narrative* Bernadine Garduno - 08/19/2024 11:30 AM EDT Last Monday left hospital and has been having diarrhea about 6 times a day. * Aida Reese NP - 08/19/2024 11:30 AM EDT Images from the original note were not included. Subjective Patient ID: Diana Champion is a 69 y.o. female who presents for No chief complaint on file.. [facility] Hospital follow up; [facility] This Visit Moderate persistent asthma with exacerbation ([facility]) - Primary Other Visit Diagnoses Diarrhea, unspecified type Relevant Orders Clostridium difficile,EIA documented in this encounterCitizens Memorial HealthcareKvvvmldoxd64-99-4359 Instructions* Patient Instructions* Aida Reese NP - 08/19/2024 11:30 AM EDT Continue Augmentin. Start taking OTC probiotics Have stool culture completed to test for C.Difficile. If negative continue ATB regimen as directed. If positive we will treat accordingly. Keep all follow up appointments as scheduled. documented in this encounterCitizens Memorial HealthcareNwtpqugcve61-01-4007 Note Gram Stain Evaluation This specimen is of good quality and is acceptable for routine Citizens Memorial HealthcareOwfwummkks13-85-5638 NoteGRAM STAIN EVALUATIONbacterial culture.TBPrisma Health Baptist Easley HospitalCxdapokljv46-04-2286 Telephone encounter Note* Telephone Encounter - Mag [...] spelled that right) nurse phone number is [phone] or you can contact patient she said. JN Citizens Memorial HealthcareEshowmwcip01-50-1317 Telephone encounter Note* Telephone Encounter - Tony Butts MA - 07/16/2024 4:08 PM EDT Pt informed of lab results and provider recommendations. Pt does do chair exercises four times a week and walks (with walker) but due to her health conditions she is limited. Pt is in a wheelchair with very limited ambulation -SCR Citizens Memorial HealthcareBywmqaaykd86-52-1501 Miscellaneous Notes* Telephone Encounter - Tony Butts [...] To: Aida Reese NP documented in this encounterCitizens Memorial HealthcareIdvlqaxbup86-07-6199 Telephone encounter Note* Telephone Encounter - Tony [...] 9:29 AM EDT To: Aida Reese NP [facility] Tgqheczvuz67-99-3053 Note Attestation signed by Emelia Yoo MD [...] Age: 68 y.o. : 1955 Account No.: [id number] [facility] Chief Complaint: follow up after recent bronch [...] years. 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 Her family history is positive for COPD [...] was initiated by the patient and conducted lxn-gtij-os-face with use of audio-only real time telephone communication between patient and provider for a virtual visit. Verbal consent to provide and bill this service was obtained on: 07/11/24 No signature was obtained due to the COVID-19 pandemic. Past Medical History: Diagnosis Date Allergic rhinitis Anemia Asthma Cancer ([facility]) Chronic heart failure with preserved ejection fraction ([facility]) Chronic hypoxic respiratory failure ([facility]) Chronic kidney disease COPD (chronic obstructive pulmonary disease) ([facility]) Coronary artery disease Depression Diabetes mellitus ([facility]) Dyspnea GERD (gastroesophageal reflux disease) Hyperlipidemia Lumbar spondylosis Other secondary pulmonary hypertension ([facility]) Pneumonia Primary osteoarthritis of right [...] by mouth every other day. Historical Provider, zvxbngnbjod-omxujhcfd-tatexnou 100-62.5-25 mcg blister with device Historical Provider, [...] multivitamin (Theragran-M) 9 mg (more content not included)...[facility]09-[facility] History of Present illness Narrative* Aida Reese NP - 07/11/2024 8:57 AM EDTAssociated Problem(s): Morbid obesity with BMI of 40.0-44.9, adult ([facility]) Discussed with patient their BMI (actual, verses recommended). We have also discussed lifestyle modifications: attempts to perform physical activity as chronic conditions allow, also to monitor dietary intake: increasing protein/fruits/veggies and lowering carb intake (unless contraindicated). Limit sodas, juices, and sugary drinks. * Aida Reese NP - 07/11/2024 8:56 AM EDTAssociated Problem(s): Severe persistent asthma without complication ([facility]) Currently taking Trelegy Singulair Albuterol [...] Pulmonology- Dr. Mcclain and Dr. Yoo Cardiology- [facility] [place] Ortho- Dr. Corrales Nephrology- Dr. Sky Was seeing Urology 5 years ago for urinary retention. Now is having mixed incontinence. Does not want referral today, would like to revisit at next visit. Was seen on 06/12/24 for Hospital follow up. Is following closely with Pulmonology; Tracheobronchomalacia HTN: Currently not taking any medications. Bp is well controlled. Averages 120's-130's. HFpEF: Follows Cardiology- [facility] Was seen [...] Comprehensive metabolic panel CBC and differential Hyperlipidemia ([facility]/HCC) Currently not on any medications: Lifestyle and dietary modifications. Recheck lipid pane today. Relevant Orders Lipid panel Comprehensive metabolic panel CBC and differential Morbid obesity with BMI of 40.0-44.9, adult ([facility]) Discussed with patient their BMI (actual, verses recommended). We have also discussed lifestyle modifications: attempts to perform physical activity as chronic conditions allow, also to monitor dietary intake: increasing protein/fruits/veggies and lowering carb intake (unless contraindicated). Limit sodas, juices, and sugary drinks. Relevant Orders Comprehensive metabolic panel CBC and differential Severe persistent asthma without complication ([facility]) Currently taking Trelegy Singulair Albuterol Was seen on 06/12/24 for Hospital follow up. Is following closely with Pulmonology; Tracheobronchomalacia documented in this encounterCitizens Memorial HealthcareOqeoeunmuu92-18-1215 Instructions* Patient Instructions* Aida Reese NP - 07/11/2024 8:30 AM EDT FASTING labs ordered. Nothing to eat or drink for 12 hours prior to blood draw. Water and black coffee ok. documented in this [facility]08-27-2024 NotePatient: Diana Champion Pre-sedation Evaluation: Sedation necessary for: Analgesia Requesting service: Pulmonary History of Present Illness: Refer to H &P PROFESSOR OF COUNSELING/Current Medications: Reviewed Recent sedation/surgery (24 hours): No Review of Systems: Negative NPO guidelines met: Yes Physical Exam: Airway Mallampati: II Neck ROM: full Cardiovascular (-) murmur, friction rub, carotid bruits Dental Pulmonary (+) on nasal cannula (-) tachypnea, accessory muscle use (-) wheezes, rales Plan: ASA 3 Moderate Proceed with consious sedation for Bronchoscopy and [facility]UnSt. [facility]08-27-2024 Note Attestation signed by Ghulam Petersen MD at 07/08/2024 2:41 PM I was present and supervised the entire procedure PULMONARY & CRITICAL CARE MEDICINE PROCEDURE NOTE FLEXIBLE FIBEROPTIC BRONCHOSCOPY INDICATIONS AND HISTORY: Please refer to H&P PROCEDURE: Flexible Fiberoptic Bronchoscopy with airway inspection ANESTHESIA: Conscious sedation PREPROCEDURE DIAGNOSIS: Recurrent pneumonias, concern for dynamic airway collapse, chronic cough POSTPROCEDURE DIAGNOSIS: Severe tracheobronchomalacia PROCEDURE ART MUSEUM DOCENT: Goran Canseco ATTENDING PHYSICIAN: Dr. Ghulam Petersen [...] by trained RN and supervised by the [facility] Director. Continuous monitoring of heart rate, respiratory rate, [...] in 1-2 weeks for treatment options [facility] Attestation signed by Emelia Yoo [...] Age: 68 y.o. : 1955 Account No.: [id number] Referring physician: Dr. Bo Mcclain Chief complaint: Recurreny pneumonia HPI Diana Champion is a 68 y.o. female with PMHx of reportedly COPD, chronic hypoxic respiratory failure on 2L home O2 who is presenting to clinic as a new patient after being referred by Dr. Bo Baker of [facility]. Patient has been admitted 4 times [...] years. 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 Her family history is positive for COPD [...] Past Medical History: Diagnosis Date Asthma Cancer ([facility]) COPD (chronic obstructive pulmonary disease) ([facility]) Coronary artery disease GERD (gastroesophageal [...] mouth every other day. Yes Historical Provider, hrbehdtienv-pfspbngnm-iqfwmcez 100-62.5-25 mcg blister with device Yes Historical [...] mEq ER ta (more content not included)... [facility] Note Chief Complaint: Patient [...] breath since then. She has seen her admissions rn. Her chest pain is noncardiac. She has [...] a past medical history of Asthma, Cancer ([facility]), COPD (chronic obstructive pulmonary disease) ([facility]), Coronary artery disease, GERD (gastroesophageal [...] mouth every other day., Disp: , Rfl: rnhszgxlhco-oqekwcmyd-vttoymkn 100-62.5-25 mcg blister with device, , Disp: [...] Physical Examination: GENERAL: a (more content not included)...[facility] 09-07-[facility] Evaluation note* Encounter Date Diagnosis Assessment Notes Treatment Notes Treatment Clinical Notes Sep, Hypomagnesemia (ICD-10 - E83.42) [facility] Other 10-23-2023 Evaluation note* Encounter Date Diagnosis Assessment Notes Treatment Notes Treatment Clinical Notes Aug, Nico guillen kid w cr kid I-IV (ICD-10 - I12.9) [facility] Other 10-12-2023 Evaluation note* Encounter Date Diagnosis [...] PPI induced GI losses. Continue oral Magnesium [facility] Other 05-19-2023 NotePROCEDURE: XR HIP RT 2 3V W PELVIS HISTORY: Pain in right hip joint , chronic COMPARISON: XR L-spine 02/26/2019, XR left hip with pelvis 03/11/2017 FINDINGS: BONES:Complete loss of the right hip joint space with trmo-bk-tctf articulation, subchondral sclerosis and cysts, and large periarticular degenerative osteophytes. No fracture or dislocation. Left hip replacement. Mechanical fusion of L5-S1 and moderate dextroscoliosis of lumbar spine. SOFT TISSUES:No visible soft tissue swelling. EFFUSION:None visible. OTHER: Negative. IMPRESSION: 1. Marked degenerative joint disease of the right hip; progressed since prior study. 2. Stable surgical changes. Electronically authenticated by: STEPH GRANADOS Date: 2023-03-24 12:55[facility]04-27-2023 Evaluation note* Encounter Date Diagnosis [...] PPI induced GI losses. Continue oral Magnesium [facility]* Encounter Date Diagnosis Assessment Notes Treatment Notes Treatment Clinical Notes Nov, Hypokalemia (ICD-10 - E87.6) Nov,Hypomagnesemia (ICD-10 - E83.42) [facility] 10-04-2022 Evaluation note* Encounter Date Diagnosis [...] office does not accept her new insurance. [employer] Other 09-02-2022 Evaluation note* Encounter Date Diagnosis Assessment Notes Treatment Notes Treatment Clinical Notes Jul, History of colon cancer (ICD-10 - Z85.038) [facility] Other 01-12-2022 Evaluation note* Encounter Date Diagnosis [...] potassium wasting. I have prescribed oral potassium. [facility] Other 10-25-2021 Evaluation note* Encounter Date Diagnosis [...] instructions given in writting by [facility] document [employer] Other Evaluation + Plan note Future Appointments Appointment Date:01/13/2025 09:40:00 AM Scheduled Provider:MAG BLOUNT PA-C Location:[facility] Appointment Type:URO Office Visit Diagnostic Tests Pending * Urine Culture 10/15/24 [facility] Evaluation + Plan note Future Appointments Appointment Date:01/13/2025 09:40:00 AM Scheduled Provider:MAG BLOUNT PA-C Location:[facility] Appointment Type:URO Office Visit [facility] evaluation + Plan note Future Appointments Appointment Date:06/23/2025 09:40:00 AM Scheduled Provider:MAG BLOUNT PA-C Location:[facility] Appointment Type:URO Office Visit [facility] evaluation + Plan note Future Appointments Appointment Date:07/08/2025 02:30:00 PM Scheduled Provider:Amalia Stephens PA-C Location:[facility] Appointment Type:URO Office Visit [facility] evaluation + Plan note Future Appointments Appointment Date:09/23/2025 08:00:00 AM Scheduled Provider:Amalia Stephens PA-C Location:[facility] Appointment Type:URO Office Visit [facility] evaluation noteNo [facility] Other evaluation note* Diagnosis Onset Date Resolution Status History of colon cancer acute [facility] Work Phone: evaluation note* Diagnosis Onset Date Resolution Status Hypokalemia acuteHypomagnesemiaacuteStage 3 chronic kidney diseaseacuteCOVIDnoneactive Pneumonianoneactive [facility] Work Phone: evaluation note* Diagnosis Moderate persistent asthma with exacerbation ([facility]/HCC)- Primary Unspecified asthma, with exacerbation Non-recurrent acute suppurative otitis media of both ears without spontaneous rupture of tympanic membranes Colorectal cancer ([facility]/HCC) Malignant neoplasm of colon, unspecified site Chronic heart failure with preserved ejection fraction ([facility]/HCC) Pulmonary emphysema, unspecified emphysema type ([facility]/HCC) Moderate episode of recurrent major depressive disorder ([facility])- Primary Moderate persistent asthma with exacerbation ([facility]) Unspecified asthma, with exacerbation Medicare annual wellness visit, subsequent Severe persistent asthma with acute exacerbation ([facility])- Primary Hospital discharge follow-up Other follow-up examination Severe persistent asthma without complication ([facility]/HCC)- Primary Essential hypertension ([facility]) Unspecified essential hypertension JEANNE (acute kidney injury) ([facility]) Leukocytosis, unspecified type Chronic respiratory failure with hypoxia ([facility]) Chronic bilateral low back pain without sciatica- Primary Vitamin D deficiency Chronic bilateral low back pain without sciatica- Primary Pneumonia due to infectious organism, unspecified laterality, unspecified part of lung- Primary Screening mammogram for breast cancer Chronic respiratory failure with hypoxia ([facility]) Pulmonary emphysema, unspecified emphysema type ([facility]) Essential hypertension ([facility]) Unspecified essential hypertension Morbid obesity with BMI of 40.0-44.9, adult ([facility]) Hospital discharge follow-up- Primary Other follow-up examination Chronic respiratory failure with hypoxia ([facility]) Severe persistent asthma without complication ([facility] Severe persistent asthma with acute exacerbation ([facility])- Primary Severe persistent asthma with exacerbation ([facility])- Primary Unspecified asthma, with exacerbation Hospital discharge follow-up- Primary Other follow-up examination Chronic respiratory failure with hypoxia ([facility])- Primary Hospital discharge follow-up Other follow-up examination Benign essential HTN ([facility] Chronic heart failure with preserved ejection fraction ([facility] Severe persistent asthma without complication ([facility]) Moderate mixed hyperlipidemia not requiring statin therapy ([facility]) Morbid obesity with BMI of 40.0-44.9, adult ([facility]) Opioid use Chronic, continuous use of opioids Chronic back pain greater than 3 months duration Moderate persistent asthma with exacerbation ([facility])- Primary Unspecified asthma, with exacerbation Diarrhea, unspecified type documented in this encounter [facility] HealthcareEvaluation note* Diagnosis Moderate persistent asthma with exacerbation ([facility])- Primary Unspecified asthma, with exacerbation Non-recurrent acute suppurative otitis media of both ears without spontaneous rupture of tympanic membranes Colorectal cancer ([facility]) Malignant neoplasm of colon, unspecified site Chronic heart failure with preserved ejection fraction ([facility]) Pulmonary emphysema, unspecified emphysema type ([facility]/HCC) Moderate episode of recurrent major depressive disorder ([facility])- Primary Moderate persistent asthma with exacerbation ([facility]) Unspecified asthma, with exacerbation Medicare annual wellness visit, subsequent Severe persistent asthma with acute exacerbation ([facility])- Primary Hospital discharge follow-up Other follow-up examination Severe persistent asthma without complication ([facility]/HCC)- Primary Essential hypertension ([facility]) Unspecified essential hypertension JEANNE (acute kidney injury) ([facility]) Leukocytosis, unspecified type Chronic respiratory failure with hypoxia ([facility]) Chronic bilateral low back pain without sciatica- Primary Vitamin D deficiency Chronic bilateral low back pain without sciatica- Primary Pneumonia due to infectious organism, unspecified laterality, unspecified part of lung- Primary Screening mammogram for breast cancer Chronic respiratory failure with hypoxia ([facility]) Pulmonary emphysema, unspecified emphysema type ([facility]) Essential hypertension ([facility]) Unspecified essential hypertension Morbid obesity with BMI of 40.0-44.9, adult ([facility]) Hospital discharge follow-up- Primary Other follow-up examination Chronic respiratory failure with hypoxia ([facility]) Severe persistent asthma without complication ([facility] Severe persistent asthma with acute exacerbation ([facility])- Primary Severe persistent asthma with exacerbation ([facility])- Primary Unspecified asthma, with exacerbation Hospital discharge follow-up- Primary Other follow-up examination Chronic respiratory failure with hypoxia ([facility])- Primary Hospital discharge follow-up Other follow-up examination Benign essential HTN ([facility] Chronic heart failure with preserved ejection fraction ([facility] Severe persistent asthma without complication ([facility] Moderate mixed hyperlipidemia not requiring statin therapy ([facility]) Morbid obesity with BMI of 40.0-44.9, adult ([facility]) Opioid use Chronic, continuous use of opioids Chronic back pain greater than 3 months duration Restless leg syndrome Restless legs syndrome (RLS) documented in this encounter [facility] Healthcare[facility] note* Diagnosis Moderate persistent asthma with exacerbation ([facility])- Primary Unspecified asthma, with exacerbation Non-recurrent acute suppurative otitis media of both ears without spontaneous rupture of tympanic membranes Colorectal cancer ([facility]) Malignant neoplasm of colon, unspecified site Chronic heart failure with preserved ejection fraction ([facility]) Pulmonary emphysema, unspecified emphysema type ([facility]) Moderate episode of recurrent major depressive disorder ([facility])- Primary Moderate persistent asthma with exacerbation (CMS/HCC) Unspecified asthma, with exacerbation Medicare annual wellness visit, subsequent Severe persistent asthma with acute exacerbation ([facility]/HCC)- Primary Hospital discharge follow-up Other follow-up examination Severe persistent asthma without complication (CMS/HCC)- Primary Essential hypertension (CMS/HCC) Unspecified essential hypertension JEANNE (acute kidney injury) ([facility]/HCC) Leukocytosis, unspecified type Chronic respiratory failure with hypoxia (CMS/HCC) Chronic bilateral low back pain without sciatica- Primary Vitamin D deficiency Chronic bilateral low back pain without sciatica- Primary Pneumonia due to infectious organism, unspecified laterality, unspecified part of lung- Primary Screening mammogram for breast cancer Chronic respiratory failure with hypoxia (CMS/HCC) Pulmonary emphysema, unspecified emphysema type ([facility]/HCC) Essential hypertension ([facility]/HCC) Unspecified essential hypertension Morbid obesity with BMI of 40.0-44.9, adult ([facility]) Hospital discharge follow-up- Primary Other follow-up examination Chronic respiratory failure with hypoxia (CMS/HCC) Severe persistent asthma without complication ([facility]/HCC) Severe persistent asthma with acute exacerbation ([facility]/HCC)- Primary Severe persistent asthma with exacerbation ([facility]/HCC)- Primary Unspecified asthma, with exacerbation Hospital discharge follow-up- Primary Other follow-up examination Chronic respiratory failure with hypoxia ([facility]/HCC)- Primary Hospital discharge follow-up Other follow-up examination Benign essential HTN ([facility]/HCC) Chronic heart failure with preserved ejection fraction ([facility]/HCC) Severe persistent asthma without complication ([facility]/HCC) Moderate mixed hyperlipidemia not requiring statin therapy ([facility]/HCC) Morbid obesity with BMI of 40.0-44.9, adult ([facility]) Opioid use Chronic, continuous use of opioids Chronic back pain greater than 3 months duration Gastroesophageal reflux disease without esophagitis Esophageal reflux documented in this encounter [facility] HealthcareEvaluation noteNo assessment information [facility] Work Phone: Evaluation note* Diagnosis Moderate persistent asthma with exacerbation ([facility]/HCC)- Primary Unspecified asthma, with exacerbation Non-recurrent acute suppurative otitis media of both ears without spontaneous rupture of tympanic membranes Colorectal cancer ([facility]/HCC) Malignant neoplasm of colon, unspecified site Chronic heart failure with preserved ejection fraction ([facility]/HCC) Pulmonary emphysema, unspecified emphysema type ([facility]/HCC) Moderate episode of recurrent major depressive disorder ([facility]/HCC)- Primary Moderate persistent asthma with exacerbation ([facility]/HCC) Unspecified asthma, with exacerbation Medicare annual wellness visit, subsequent Severe persistent asthma with acute exacerbation ([facility]/HCC)- Primary Hospital discharge follow-up Other follow-up examination Severe persistent asthma without complication ([facility]/HCC)- Primary Essential hypertension ([facility]) Unspecified essential hypertension JEANNE (acute kidney injury) ([facility]) Leukocytosis, unspecified type Chronic respiratory failure with hypoxia ([facility]) Chronic bilateral low back pain without sciatica- Primary Vitamin D deficiency Chronic bilateral low back pain without sciatica- Primary Pneumonia due to infectious organism, unspecified laterality, unspecified part of lung- Primary Screening mammogram for breast cancer Chronic respiratory failure with hypoxia ([facility]) Pulmonary emphysema, unspecified emphysema type ([facility]) Essential hypertension ([facility] Unspecified essential hypertension Morbid obesity with BMI of 40.0-44.9, adult ([facility]) Hospital discharge follow-up- Primary Other follow-up examination Chronic respiratory failure with hypoxia ([facility]) Severe persistent asthma without complication ([facility]) Severe persistent asthma with acute exacerbation ([facility])- Primary Severe persistent asthma with exacerbation ([facility])- Primary Unspecified asthma, with exacerbation Hospital discharge follow-up- Primary Other follow-up examination Chronic respiratory failure with hypoxia ([facility])- Primary Hospital discharge follow-up Other follow-up examination Benign essential HTN ([facility] Chronic heart failure with preserved ejection fraction ([facility] Severe persistent asthma without complication ([facility] Moderate mixed hyperlipidemia not requiring statin therapy ([facility]) Morbid obesity with BMI of 40.0-44.9, adult ([facility]) Opioid use Chronic, continuous use of opioids Chronic back pain greater than 3 months duration Vaginal guero- Primary Candidiasis of vulva and vagina documented in this encounter [facility] HealthcareEvaluation note* Diagnosis Moderate persistent asthma with exacerbation ([facility])- Primary Unspecified asthma, with exacerbation Non-recurrent acute suppurative otitis media of both ears without spontaneous rupture of tympanic membranes Colorectal cancer ([facility]) Malignant neoplasm of colon, unspecified site Chronic heart failure with preserved ejection fraction ([facility]) Pulmonary emphysema, unspecified emphysema type ([facility]) Moderate episode of recurrent major depressive disorder ([facility])- Primary Moderate persistent asthma with exacerbation ([facility]) Unspecified asthma, with exacerbation Medicare annual wellness visit, subsequent Severe persistent asthma with acute exacerbation ([facility]/HCC)- Primary Hospital discharge follow-up Other follow-up examination Severe persistent asthma without complication ([facility]/HCC)- Primary Essential hypertension ([facility]/HCC) Unspecified essential hypertension JEANNE (acute kidney injury) ([facility]/HCC) Leukocytosis, unspecified type Chronic respiratory failure with hypoxia (CMS/HCC) Chronic bilateral low back pain without sciatica- Primary Vitamin D deficiency Chronic bilateral low back pain without sciatica- Primary Pneumonia due to infectious organism, unspecified laterality, unspecified part of lung- Primary Screening mammogram for breast cancer Chronic respiratory failure with hypoxia ([facility]/HCC) Pulmonary emphysema, unspecified emphysema type ([facility]/HCC) Essential hypertension ([facility]/HCC) Unspecified essential hypertension Morbid obesity with BMI of 40.0-44.9, adult ([facility]) Hospital discharge follow-up- Primary Other follow-up examination Chronic respiratory failure with hypoxia (CMS/HCC) Severe persistent asthma without complication ([facility]/HCC) Severe persistent asthma with acute exacerbation ([facility]/HCC)- Primary Severe persistent asthma with exacerbation ([facility]/HCC)- Primary Unspecified asthma, with exacerbation Hospital discharge follow-up- Primary Other follow-up examination Chronic respiratory failure with hypoxia ([facility])- Primary Hospital discharge follow-up Other follow-up examination Benign essential HTN ([facility]) Chronic heart failure with preserved ejection fraction ([facility]/HCC) Severe persistent asthma without complication ([facility]/HCC) Moderate mixed hyperlipidemia not requiring statin therapy ([facility]) Morbid obesity with BMI of 40.0-44.9, adult ([facility]) Opioid use Chronic, continuous use of opioids Chronic back pain greater than 3 months duration Restless leg syndrome Restless legs syndrome (RLS) documented in this encounter [facility] HealthcareEvaluation note* Diagnosis Moderate persistent asthma with exacerbation ([facility]/HCC)- Primary Unspecified asthma, with exacerbation Non-recurrent acute suppurative otitis media of both ears without spontaneous rupture of tympanic membranes Colorectal cancer ([facility]/HCC) Malignant neoplasm of colon, unspecified site Chronic heart failure with preserved ejection fraction ([facility]/HCC) Pulmonary emphysema, unspecified emphysema type ([facility]/HCC) Moderate episode of recurrent major depressive disorder ([facility])- Primary Moderate persistent asthma with exacerbation ([facility]/HCC) Unspecified asthma, with exacerbation Medicare annual wellness visit, subsequent Severe persistent asthma with acute exacerbation ([facility]/HCC)- Primary Hospital discharge follow-up Other follow-up [...] Morbid obesity with BMI of 40.0-44.9, adult ([facility]) Hospital discharge follow-up- Primary Other follow-up examination Chronic respiratory failure with hypoxia (CMS/HCC) Severe persistent asthma without complication (CMS/HCC) Severe persistent asthma with acute exacerbation (CMS/HCC)- Primary Severe persistent asthma with exacerbation ([facility]/HCC)- Primary Unspecified asthma, with exacerbation Hospital discharge follow-up- Primary Other follow-up examination Chronic respiratory failure with hypoxia (CMS/HCC)- Primary Hospital discharge follow-up Other follow-up examination Benign essential HTN (CMS/HCC) Chronic heart failure with preserved ejection fraction (CMS/HCC) Severe persistent asthma without complication (CMS/HCC) Moderate mixed hyperlipidemia not requiring statin therapy ([facility]/HCC) Morbid obesity with BMI of 40.0-44.9, adult ([facility]) Opioid use Chronic, continuous use of opioids Chronic back pain greater than 3 months duration Urge incontinence- Primary Morbid obesity with BMI of 40.0-44.9, adult ([facility]) 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 Stage 3a chronic kidney disease (HCC) ([facility]/HCC) Chronic respiratory failure with hypoxia (CMS/HCC) documented in this encounter [facility] HealthcareEvaluation note* Diagnosis Moderate persistent asthma with exacerbation (CMS/HCC)- Primary Unspecified asthma, with exacerbation Non-recurrent acute suppurative otitis media of both ears without spontaneous rupture of tympanic membranes Colorectal cancer ([facility]/HCC) Malignant neoplasm of colon, unspecified site Chronic heart failure with preserved ejection fraction (CMS/HCC) Pulmonary emphysema, unspecified emphysema type (CMS/HCC) Moderate episode of recurrent major depressive disorder (CMS/HCC)- Primary Moderate persistent asthma with exacerbation (CMS/HCC) Unspecified asthma, with exacerbation Medicare annual wellness visit, subsequent Severe persistent asthma with acute exacerbation ([facility]/HCC)- Primary Hospital discharge follow-up Other follow-up examination Severe persistent asthma without complication (CMS/HCC)- Primary Essential hypertension ([facility]/HCC) Unspecified essential hypertension JEANNE (acute kidney injury) ([facility]) Leukocytosis, unspecified type Chronic respiratory failure with hypoxia ([facility]/HCC) Chronic bilateral low back pain without sciatica- Primary Vitamin D deficiency Chronic bilateral low back pain without sciatica- Primary Pneumonia due to infectious organism, unspecified laterality, unspecified part of lung- Primary Screening mammogram for breast cancer Chronic respiratory failure with hypoxia (CMS/HCC) Pulmonary emphysema, unspecified emphysema type ([facility]/HCC) Essential hypertension ([facility]/HCC) Unspecified essential hypertension Morbid obesity with BMI of 40.0-44.9, adult ([facility]) Hospital discharge follow-up- Primary Other follow-up examination Chronic respiratory failure with hypoxia (CMS/HCC) Severe persistent asthma without complication ([facility]/HCC) Severe persistent asthma with acute exacerbation ([facility]/HCC)- Primary Severe persistent asthma with exacerbation ([facility]/HCC)- Primary Unspecified asthma, with exacerbation Hospital discharge follow-up- Primary Other follow-up examination Chronic respiratory failure with hypoxia ([facility]/HCC)- Primary Hospital discharge follow-up Other follow-up examination Benign essential HTN ([facility]) Chronic heart failure with preserved ejection fraction ([facility]/HCC) Severe persistent asthma without complication ([facility]/HCC) Moderate mixed hyperlipidemia not requiring statin therapy ([facility]) Morbid obesity with BMI of 40.0-44.9, adult ([facility]) Opioid use Chronic, continuous use of opioids Chronic back pain greater than 3 months duration Urge incontinence- Primary Morbid obesity with BMI of 40.0-44.9, adult ([facility]) 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 Stage 3a chronic kidney disease (HCC) ([facility]) Chronic respiratory failure with hypoxia ([facility]) Neoplasm of unspecified behavior of bone, soft tissue, and skin- Primary documented in this encounter [facility] HealthcareEvaluation note* Diagnosis Moderate persistent asthma with exacerbation (CMS/HCC)- Primary Unspecified asthma, with exacerbation Non-recurrent acute suppurative otitis media of both ears without spontaneous rupture of tympanic membranes Colorectal cancer ([facility]/HCC) Malignant neoplasm of colon, unspecified site Chronic heart failure with preserved ejection fraction ([facility]/HCC) Pulmonary emphysema, unspecified emphysema type (CMS/HCC) Moderate episode of recurrent major depressive disorder (CMS/HCC)- Primary Moderate persistent asthma with exacerbation ([facility]/HCC) Unspecified asthma, with exacerbation Medicare annual wellness visit, subsequent Severe persistent asthma with acute exacerbation ([facility]/HCC)- Primary Hospital discharge follow-up Other follow-up examination Severe persistent asthma without complication (CMS/HCC)- Primary Essential hypertension (CMS/HCC) Unspecified essential hypertension JEANNE (acute kidney injury) ([facility]) Leukocytosis, unspecified type Chronic respiratory failure with hypoxia (CMS/HCC) Chronic bilateral low back pain without sciatica- Primary Vitamin D deficiency Chronic bilateral low back pain without sciatica- Primary Pneumonia due to infectious organism, unspecified laterality, unspecified part of lung- Primary Screening mammogram for breast cancer Chronic respiratory failure with hypoxia (CMS/HCC) Pulmonary emphysema, unspecified emphysema type ([facility]/HCC) Essential hypertension ([facility]/HCC) Unspecified essential hypertension Morbid obesity with BMI of 40.0-44.9, adult ([facility]) Hospital discharge follow-up- Primary Other follow-up examination Chronic respiratory failure with hypoxia (CMS/HCC) Severe persistent asthma without complication (CMS/HCC) Severe persistent asthma with acute exacerbation (CMS/HCC)- Primary Severe persistent asthma with exacerbation ([facility]/HCC)- Primary Unspecified asthma, with exacerbation Hospital discharge follow-up- Primary Other follow-up examination Chronic respiratory failure with hypoxia ([facility]/HCC)- Primary Hospital discharge follow-up Other follow-up examination Benign essential HTN ([facility]/HCC) Chronic heart failure with preserved ejection fraction ([facility]/HCC) Severe persistent asthma without complication ([facility]/HCC) Moderate mixed hyperlipidemia not requiring statin therapy ([facility]) Morbid obesity with BMI of 40.0-44.9, adult ([facility]) Opioid use Chronic, continuous use of opioids Chronic back pain greater than 3 months duration Urge incontinence- Primary Morbid obesity with BMI of 40.0-44.9, adult ([facility]) 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 Stage 3a chronic kidney disease (HCC) ([facility]) Chronic respiratory failure with hypoxia ([facility]) Urge incontinence documented in this encounter [facility] HealthcareEvaluation note* Diagnosis Moderate persistent asthma with exacerbation ([facility]/HCC)- Primary Unspecified asthma, with exacerbation Non-recurrent [...] [facility] HealthcareEvaluation note* Diagnosis Benign essential HTN (CMS/HCC)- Primary Chronic heart failure with preserved ejection fraction (CMS/HCC) Severe persistent asthma without complication (CMS/HCC) Moderate mixed hyperlipidemia not requiring statin therapy (CMS/HCC) Morbid obesity with BMI of 40.0-44.9, adult ([facility]) documented in this encounter [facility] HealthcareEvaluation note* Diagnosis Chronic bilateral low back pain without sciatica documented in this encounter [facility] HealthcareEvaluation note* Diagnosis Moderate episode of recurrent major depressive disorder (HCC) ([facility]) Urge incontinence documented in this encounter [facility] HealthcareEvaluation note* Diagnosis Moderate persistent asthma [...] (CMS/HCC)- Primary Moderate persistent asthma with exacerbation ([facility]/HCC) Unspecified asthma, with exacerbation Medicare annual wellness visit, subsequent Severe persistent asthma with acute exacerbation ([facility]/HCC)- Primary Hospital discharge follow-up Other follow-up [...] Morbid obesity with BMI of 40.0-44.9, adult ([facility]) Hospital discharge follow-up- Primary Other [...] fraction (CMS/HCC) Severe persistent asthma without complication ([facility]/HCC) Moderate mixed hyperlipidemia not requiring statin therapy ([facility]/HCC) Morbid obesity with BMI of 40.0-44.9, adult ([facility]) Opioid use Chronic, continuous use of opioids Chronic back pain greater than 3 months duration Urge incontinence- Primary Morbid obesity with BMI of 40.0-44.9, adult ([facility]) 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 Stage 3a chronic kidney disease (HCC) ([facility]/HCC) Chronic respiratory failure with hypoxia ([facility]/HCC) Moderate episode of recurrent major depressive disorder ([facility]) Restless leg syndrome Restless legs syndrome (RLS) documented in this encounter [facility] HealthcareEvaluation note* Diagnosis Moderate persistent asthma with exacerbation ([facility]/HCC)- Primary Unspecified asthma, with exacerbation Non-recurrent acute suppurative otitis media of both ears without spontaneous rupture of tympanic membranes Colorectal cancer ([facility]) Malignant neoplasm of colon, unspecified site Chronic heart failure with preserved ejection fraction ([facility]/HCC) Pulmonary emphysema, unspecified emphysema type (CMS/HCC) Moderate episode of recurrent major depressive disorder ([facility]/HCC)- Primary Moderate persistent asthma with exacerbation ([facility]) Unspecified asthma, with exacerbation Medicare annual wellness visit, subsequent Severe persistent asthma with acute exacerbation ([facility]/HCC)- Primary Hospital discharge follow-up Other follow-up examination Severe persistent asthma without complication (CMS/HCC)- Primary Essential hypertension ([facility]/HCC) Unspecified essential hypertension JEANNE (acute kidney injury) ([facility]) Leukocytosis, unspecified type Chronic respiratory failure with hypoxia ([facility]/HCC) Chronic bilateral low back pain without sciatica- Primary Vitamin D deficiency Chronic bilateral low back pain without sciatica- Primary Pneumonia due to infectious organism, unspecified laterality, unspecified part of lung- Primary Screening mammogram for breast cancer Chronic respiratory failure with hypoxia (CMS/HCC) Pulmonary emphysema, unspecified emphysema type ([facility]/HCC) Essential hypertension ([facility]/HCC) Unspecified essential hypertension Morbid obesity with BMI of 40.0-44.9, adult ([facility]) Hospital discharge follow-up- Primary Other follow-up examination Chronic respiratory failure with hypoxia (CMS/HCC) Severe persistent asthma without complication (CMS/HCC) Severe persistent asthma with acute exacerbation ([facility]/HCC)- Primary Severe persistent asthma with exacerbation (CMS/HCC)- Primary Unspecified asthma, with exacerbation Hospital discharge follow-up- Primary Other follow-up examination Chronic respiratory failure with hypoxia ([facility]/HCC)- Primary Hospital discharge follow-up Other follow-up examination Benign essential HTN ([facility]/HCC) Chronic heart failure with preserved ejection fraction (CMS/HCC) Severe persistent asthma without complication (CMS/HCC) Moderate mixed hyperlipidemia not requiring statin therapy ([facility]) Morbid obesity with BMI of 40.0-44.9, adult ([facility]) Opioid use Chronic, continuous use of opioids Chronic back pain greater than 3 months duration Urge incontinence- Primary Morbid obesity with BMI of 40.0-44.9, adult ([facility]) 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 Stage 3a chronic kidney disease (HCC) ([facility]) Chronic respiratory failure with hypoxia ([facility]) Chronic obstructive pulmonary disease with acute lower respiratory infection ([facility])- Primary Primary HSV infection of mouth documented in this encounter [facility] HealthcareEvaluation note* Diagnosis Moderate persistent asthma with exacerbation ([facility]/HCC)- Primary Unspecified asthma, with exacerbation Non-recurrent acute suppurative otitis media of both ears without spontaneous rupture of tympanic membranes Colorectal cancer ([facility]) Malignant neoplasm of colon, unspecified site Chronic heart failure with preserved ejection fraction ([facility]) Pulmonary emphysema, unspecified emphysema type ([facility]/HCC) Moderate episode of recurrent major depressive disorder ([facility]/HCC)- Primary Moderate persistent asthma with exacerbation ([facility]) Unspecified asthma, with exacerbation Medicare annual wellness visit, subsequent Severe persistent asthma with acute exacerbation ([facility])- Primary Hospital discharge follow-up Other follow-up examination Severe persistent asthma without complication ([facility]/HCC)- Primary Essential hypertension ([facility]/HCC) Unspecified essential hypertension JEANNE (acute kidney injury) ([facility]) Leukocytosis, unspecified type Chronic respiratory failure with hypoxia ([facility]/HCC) Chronic bilateral low back pain without sciatica- Primary Vitamin D deficiency Chronic bilateral low back pain without sciatica- Primary Pneumonia due to infectious organism, unspecified laterality, unspecified part of lung- Primary Screening mammogram for breast cancer Chronic respiratory failure with hypoxia (CMS/HCC) Pulmonary emphysema, unspecified emphysema type ([facility]/HCC) Essential hypertension ([facility]/HCC) Unspecified essential hypertension Morbid obesity with BMI of 40.0-44.9, adult ([facility]/HCC) Hospital discharge follow-up- Primary Other follow-up [...] Morbid obesity with BMI of 40.0-44.9, adult ([facility]/HCC) Opioid use Chronic, continuous use of opioids Chronic back pain greater than 3 months duration Urge incontinence- Primary Morbid obesity with BMI of 40.0-44.9, adult ([facility]) 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 Stage 3a chronic kidney disease (HCC) ([facility]/HCC) Chronic respiratory failure with hypoxia ([facility]/HCC) Chronic obstructive pulmonary disease with acute lower respiratory infection ([facility]/HCC)- Primary Primary HSV infection of mouth Pulmonary emphysema, unspecified emphysema type ([facility]/HCC)- Primary documented in this encounter [facility] [...] subsequent Severe persistent asthma with acute exacerbation ([facility]/HCC)- Primary Hospital discharge follow-up Other follow-up [...] Morbid obesity with BMI of 40.0-44.9, adult ([facility]) Opioid use Chronic, continuous use of opioids Chronic back pain greater than 3 months duration Urge incontinence- Primary Morbid obesity with BMI of 40.0-44.9, adult ([facility]) Neoplasm of uncertain behavior of [...] Unspecified essential hypertension JEANNE (acute kidney injury) ([facility]/HCC) Leukocytosis, unspecified type Chronic respiratory failure with hypoxia ([facility]/HCC) Chronic bilateral low back pain without sciatica- Primary Vitamin D deficiency Chronic bilateral low back pain without sciatica- Primary Pneumonia due to infectious organism, unspecified laterality, unspecified part of lung- Primary Screening mammogram for breast cancer Chronic respiratory failure with hypoxia (CMS/HCC) Pulmonary emphysema, unspecified emphysema type ([facility]/HCC) Essential hypertension ([facility]/HCC) Unspecified essential hypertension Morbid obesity with BMI of 40.0-44.9, adult ([facility]) Hospital discharge follow-up- Primary Other follow-up examination Chronic respiratory failure with hypoxia (CMS/HCC) Severe persistent asthma without complication ([facility]/HCC) Severe persistent asthma with acute exacerbation ([facility]/HCC)- Primary Severe persistent asthma with exacerbation ([facility]/HCC)- Primary Unspecified asthma, with exacerbation Hospital discharge follow-up- Primary Other follow-up examination Chronic respiratory failure with hypoxia ([facility])- Primary Hospital discharge follow-up Other follow-up examination Benign essential HTN ([facility]) Chronic heart failure with preserved ejection fraction ([facility]/HCC) Severe persistent asthma without complication ([facility]/HCC) Moderate mixed hyperlipidemia not requiring statin therapy ([facility]) Morbid obesity with BMI of 40.0-44.9, adult ([facility]) Opioid use Chronic, continuous use of opioids Chronic back pain greater than 3 months duration Urge incontinence- Primary Morbid obesity with BMI of 40.0-44.9, adult ([facility]) 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 Stage 3a chronic kidney disease (HCC) ([facility]) Chronic respiratory failure with hypoxia ([facility]) Chronic obstructive pulmonary disease with acute lower respiratory infection ([facility])- Primary Primary HSV infection of mouth Pulmonary emphysema, unspecified emphysema type ([facility]/HCC)- Primary Restless leg syndrome Restless legs syndrome (RLS) documented in this encounter [facility]* Diagnosis Moderate persistent asthma with exacerbation ([facility]/HCC)- Primary Unspecified asthma, with exacerbation Non-recurrent acute suppurative otitis media of both ears without spontaneous rupture of tympanic membranes Colorectal cancer ([facility]/HCC) Malignant neoplasm of colon, unspecified site Chronic heart failure with preserved ejection fraction (CMS/HCC) Pulmonary emphysema, unspecified emphysema type ([facility]/HCC) Moderate episode of recurrent major depressive disorder (CMS/HCC)- Primary Moderate persistent asthma with exacerbation (CMS/HCC) Unspecified asthma, with exacerbation Medicare annual wellness visit, subsequent Severe persistent asthma with acute exacerbation ([facility]/HCC)- Primary Hospital discharge follow-up Other follow-up examination Severe persistent asthma without complication (CMS/HCC)- Primary Essential hypertension (CMS/HCC) Unspecified essential hypertension JEANNE (acute kidney injury) ([facility]) Leukocytosis, unspecified type Chronic respiratory failure with hypoxia ([facility]) Chronic bilateral low back pain without sciatica- Primary Vitamin D deficiency Chronic bilateral low back pain without sciatica- Primary Pneumonia due to infectious organism, unspecified laterality, unspecified part of lung- Primary Screening mammogram for breast cancer Chronic respiratory failure with hypoxia ([facility]) Pulmonary emphysema, unspecified emphysema type ([facility]) Essential hypertension ([facility]) Unspecified essential hypertension Morbid obesity with BMI of 40.0-44.9, adult ([facility]) Hospital discharge follow-up- Primary Other follow-up examination Chronic respiratory failure with hypoxia ([facility]/HCC) Severe persistent asthma without complication ([facility]/HCC) Severe persistent asthma with acute exacerbation ([facility]/HCC)- Primary Severe persistent asthma with exacerbation ([facility]/HCC)- Primary Unspecified asthma, with exacerbation Hospital discharge follow-up- Primary Other follow-up examination Chronic respiratory failure with hypoxia ([facility])- Primary Hospital discharge follow-up Other follow-up examination Benign essential HTN ([facility]) Chronic heart failure with preserved ejection fraction ([facility]/HCC) Severe persistent asthma without complication ([facility]/HCC) Moderate mixed hyperlipidemia not requiring statin therapy ([facility]) Morbid obesity with BMI of 40.0-44.9, adult ([facility]) Opioid use Chronic, continuous use of opioids Chronic back pain greater than 3 months duration Urge incontinence- Primary Morbid obesity with BMI of 40.0-44.9, adult ([facility]) 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 Stage 3a chronic kidney disease (HCC) ([facility] Chronic respiratory failure with hypoxia ([facility]) Chronic obstructive pulmonary disease with acute lower respiratory infection ([facility]/HCC)- Primary Primary HSV infection of mouth Pulmonary emphysema, unspecified emphysema type ([facility])- Primary Nevus lipomatosus cutaneus superficialis- Primary Lipoma of other skin and subcutaneous tissue Squamous cell carcinoma of skin of chest documented in this encounter [facility] HealthcareEvaluation note* Diagnosis Moderate persistent asthma with exacerbation (CMS/HCC)- Primary Unspecified asthma, with exacerbation Non-recurrent acute suppurative otitis media of both ears without spontaneous rupture of tympanic membranes Colorectal cancer ([facility]/HCC) Malignant neoplasm of colon, unspecified site Chronic heart failure with preserved ejection fraction (CMS/HCC) Pulmonary emphysema, unspecified emphysema type (CMS/HCC) Moderate episode of recurrent major depressive disorder (CMS/HCC)- Primary Moderate persistent asthma with exacerbation ([facility]/HCC) Unspecified asthma, with exacerbation Medicare annual wellness visit, subsequent Severe persistent asthma with acute exacerbation (CMS/HCC)- Primary Hospital discharge follow-up Other follow-up examination Severe persistent asthma without complication (CMS/HCC)- Primary Essential hypertension ([facility]/HCC) Unspecified essential hypertension JEANNE (acute kidney injury) ([facility]) Leukocytosis, unspecified type Chronic respiratory failure with hypoxia ([facility]/HCC) Chronic bilateral low back pain without sciatica- Primary Vitamin D deficiency Chronic bilateral low back pain without sciatica- Primary Pneumonia due to infectious organism, unspecified laterality, unspecified part of lung- Primary Screening mammogram for breast cancer Chronic respiratory failure with hypoxia (CMS/HCC) Pulmonary emphysema, unspecified emphysema type (CMS/HCC) Essential hypertension ([facility]/HCC) Unspecified essential hypertension Morbid obesity with BMI of 40.0-44.9, adult ([facility]) Hospital discharge follow-up- Primary Other follow-up examination Chronic respiratory failure with hypoxia (CMS/HCC) Severe persistent asthma without complication ([facility]/HCC) Severe persistent asthma with acute exacerbation ([facility]/HCC)- Primary Severe persistent asthma with exacerbation ([facility]/HCC)- Primary Unspecified asthma, with exacerbation Hospital discharge follow-up- Primary Other follow-up examination Chronic respiratory failure with hypoxia (CMS/HCC)- Primary Hospital discharge follow-up Other follow-up examination Benign essential HTN ([facility]/HCC) Chronic heart failure with preserved ejection fraction (CMS/HCC) Severe persistent asthma without complication ([facility]/HCC) Moderate mixed hyperlipidemia not requiring statin therapy ([facility]) Morbid obesity with BMI of 40.0-44.9, adult ([facility]) Opioid use Chronic, continuous use of opioids Chronic back pain greater than 3 months duration Urge incontinence- Primary Morbid obesity with BMI of 40.0-44.9, adult ([facility]) Neoplasm of uncertain behavior of [...] right knee replacement documented in this encounter [facility] HealthcareEvaluation note* Diagnosis Moderate persistent asthma [...] subsequent Severe persistent asthma with acute exacerbation ([facility]/HCC)- Primary Hospital discharge follow-up Other follow-up examination Severe persistent asthma without complication (CMS/HCC)- Primary Essential hypertension ([facility]/HCC) Unspecified essential hypertension JEANNE (acute kidney injury) ([facility]) Leukocytosis, unspecified type Chronic respiratory failure with hypoxia (CMS/HCC) Chronic bilateral low back pain without sciatica- Primary Vitamin D deficiency Chronic bilateral low back pain without sciatica- Primary Pneumonia due to infectious organism, unspecified laterality, unspecified part of lung- Primary Screening mammogram for breast cancer Chronic respiratory failure with hypoxia (CMS/HCC) Pulmonary emphysema, unspecified emphysema type (CMS/HCC) Essential hypertension ([facility]/HCC) Unspecified essential hypertension Morbid obesity with BMI of 40.0-44.9, adult ([facility]) Hospital discharge follow-up- Primary Other follow-up examination Chronic respiratory failure with hypoxia (CMS/HCC) Severe persistent asthma without complication (CMS/HCC) Severe persistent asthma with acute exacerbation (CMS/HCC)- Primary Severe persistent asthma with exacerbation ([facility]/HCC)- Primary Unspecified asthma, with exacerbation Hospital discharge follow-up- Primary Other follow-up examination Chronic respiratory failure with hypoxia (CMS/HCC)- Primary Hospital discharge follow-up Other follow-up examination Benign essential HTN (CMS/HCC) Chronic heart failure with preserved ejection fraction (CMS/HCC) Severe persistent asthma without complication (CMS/HCC) Moderate mixed hyperlipidemia not requiring statin therapy (CMS/HCC) Morbid obesity with BMI of 40.0-44.9, adult ([facility]) Opioid use Chronic, continuous use of opioids Chronic back pain greater than 3 months duration Urge incontinence- Primary Morbid obesity with BMI of 40.0-44.9, adult ([facility]) 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 Stage 3a chronic kidney disease (HCC) ([facility]) Chronic respiratory failure with hypoxia ([facility]) Chronic obstructive pulmonary disease with acute lower respiratory infection ([facility])- Primary Primary HSV infection of mouth Pulmonary emphysema, unspecified emphysema type ([facility])- Primary Acute pain of right knee- Primary History of total right knee replacement Right hip pain Pain in joint, pelvic region and thigh Arthritis of right hip documented in this encounter [facility] HealthcareEvaluation note* Diagnosis Moderate persistent asthma with exacerbation ([facility])- Primary Unspecified asthma, with exacerbation Non-recurrent acute suppurative otitis media of both ears without spontaneous rupture of tympanic membranes Colorectal cancer ([facility]) Malignant neoplasm of colon, unspecified site Chronic heart failure with preserved ejection fraction ([facility]) Pulmonary emphysema, unspecified emphysema type ([facility]) Moderate episode of recurrent major depressive disorder ([facility])- Primary Moderate persistent asthma with exacerbation ([facility]) Unspecified asthma, with exacerbation Medicare annual wellness visit, subsequent Severe persistent asthma with acute exacerbation ([facility])- Primary Hospital discharge follow-up Other follow-up examination Severe persistent asthma without complication ([facility]/HCC)- Primary Essential hypertension ([facility]) Unspecified essential hypertension JEANNE (acute kidney injury) ([facility]) Leukocytosis, unspecified type Chronic respiratory failure with hypoxia ([facility]) Chronic bilateral low back pain without sciatica- Primary Vitamin D deficiency Chronic bilateral low back pain without sciatica- Primary Pneumonia due to infectious organism, unspecified laterality, unspecified part of lung- Primary Screening mammogram for breast cancer Chronic respiratory failure with hypoxia ([facility]) Pulmonary emphysema, unspecified emphysema type ([facility]) Essential hypertension ([facility] Unspecified essential hypertension Morbid obesity with BMI of 40.0-44.9, adult ([facility]) Hospital discharge follow-up- Primary Other follow-up examination Chronic respiratory failure with hypoxia ([facility]) Severe persistent asthma without complication ([facility]/HCC) Severe persistent asthma with acute exacerbation ([facility]/HCC)- Primary Severe persistent asthma with exacerbation (CMS/HCC)- Primary Unspecified asthma, with exacerbation Hospital discharge follow-up- Primary Other follow-up examination Chronic respiratory failure with hypoxia ([facility]/HCC)- Primary Hospital discharge follow-up Other follow-up examination Benign essential HTN ([facility]/HCC) Chronic heart failure with preserved ejection fraction (CMS/HCC) Severe persistent asthma without complication (CMS/HCC) Moderate mixed hyperlipidemia not requiring statin therapy ([facility]/HCC) Morbid obesity with BMI of 40.0-44.9, adult ([facility]) Opioid use Chronic, continuous use of opioids Chronic back pain greater than 3 months duration Urge incontinence- Primary Morbid obesity with BMI of 40.0-44.9, adult ([facility]) 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 Stage 3a chronic kidney disease (HCC) ([facility] Chronic respiratory failure with hypoxia ([facility]) Chronic obstructive pulmonary disease with acute lower respiratory infection ([facility])- Primary Primary HSV infection of mouth Pulmonary emphysema, unspecified emphysema type ([facility])- Primary Seborrheic keratosis- Primary History of SCC (squamous cell carcinoma) of skin Personal history of other malignant neoplasm of skin Lentigines documented in this encounter [facility] HealthcareEvaluation note* Diagnosis Moderate episode of recurrent major depressive disorder ([facility])- Primary Moderate persistent asthma with exacerbation ([facility]/HCC) Unspecified asthma, with exacerbation Medicare annual wellness visit, subsequent Severe persistent asthma with acute exacerbation ([facility]/HCC)- Primary Hospital discharge follow-up Other follow-up examination Severe persistent asthma without complication ([facility]/HCC)- Primary Essential hypertension ([facility]) Unspecified essential hypertension JEANNE (acute kidney injury) ([facility]) Leukocytosis, unspecified type Chronic respiratory failure with hypoxia ([facility]/HCC) Chronic bilateral low back pain without sciatica- Primary Vitamin D deficiency Chronic bilateral low back pain without sciatica- Primary Pneumonia due to infectious organism, unspecified laterality, unspecified part of lung- Primary Screening mammogram for breast cancer Chronic respiratory failure with hypoxia (CMS/HCC) Pulmonary emphysema, unspecified emphysema type ([facility]/HCC) Essential hypertension ([facility]/HCC) Unspecified essential hypertension Morbid obesity with BMI of 40.0-44.9, adult ([facility]) Hospital discharge follow-up- Primary Other follow-up examination Chronic respiratory failure with hypoxia (CMS/HCC) Severe persistent asthma without complication ([facility]/HCC) Severe persistent asthma with acute exacerbation (CMS/HCC)- Primary Hospital discharge follow-up- Primary Other follow-up examination Chronic respiratory failure with hypoxia ([facility]/HCC)- Primary Hospital discharge follow-up Other follow-up examination Benign essential HTN ([facility]/HCC) Chronic heart failure with preserved ejection fraction ([facility]/HCC) Severe persistent asthma without complication (CMS/HCC) Moderate mixed hyperlipidemia not requiring statin therapy ([facility]) Morbid obesity with BMI of 40.0-44.9, adult ([facility]) Opioid use Chronic, continuous use of opioids Chronic back pain greater than 3 months duration Urge incontinence- Primary Morbid obesity with BMI of 40.0-44.9, adult ([facility]) 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 Stage 3a chronic kidney disease (HCC) ([facility] Chronic respiratory failure with hypoxia ([facility]) Chronic obstructive pulmonary disease with acute lower respiratory infection ([facility])- Primary Primary HSV infection of mouth Pulmonary emphysema, unspecified emphysema type ([facility])- Primary Flu-like symptoms- Primary Morbid (severe) obesity due to excess calories ([facility]) Body mass index (BMI) 40.0-44.9, adult ([facility]) Pulmonary emphysema, unspecified emphysema type ([facility]) Chronic respiratory failure with hypoxia ([facility] Essential hypertension ([facility]) Unspecified essential hypertension documented in this encounter [facility] HealthcareEvaluation note* Diagnosis Moderate episode of recurrent major depressive disorder ([facility]/HCC)- Primary Moderate persistent asthma with exacerbation ([facility]) Unspecified asthma, with exacerbation Medicare annual wellness visit, subsequent Severe persistent asthma with acute exacerbation ([facility])- Primary Hospital discharge follow-up Other follow-up examination Severe persistent asthma without complication ([facility]/HCC)- Primary Essential hypertension ([facility]/HCC) Unspecified essential hypertension JEANNE (acute kidney injury) ([facility]) Leukocytosis, unspecified type Chronic respiratory failure with hypoxia ([facility]/HCC) Chronic bilateral low back pain without sciatica- Primary Vitamin D deficiency Chronic bilateral low back pain without sciatica- Primary Pneumonia due to infectious organism, unspecified laterality, unspecified part of lung- Primary Screening mammogram for breast cancer Chronic respiratory failure with hypoxia (CMS/HCC) Pulmonary emphysema, unspecified emphysema type (CMS/HCC) Essential hypertension ([facility]/HCC) Unspecified essential hypertension Morbid obesity with BMI of 40.0-44.9, adult ([facility]/HCC) Hospital discharge follow-up- Primary Other follow-up examination Chronic respiratory failure with hypoxia (CMS/HCC) Severe persistent asthma without complication (CMS/HCC) Severe persistent asthma with acute exacerbation (CMS/HCC)- Primary Hospital discharge follow-up- Primary Other follow-up examination Chronic respiratory failure with hypoxia (CMS/HCC)- Primary Hospital discharge follow-up Other follow-up examination Benign essential HTN ([facility]/HCC) Chronic heart failure with preserved ejection fraction (CMS/HCC) Severe persistent asthma without complication (CMS/HCC) Moderate mixed hyperlipidemia not requiring statin therapy (CMS/HCC) Morbid obesity with BMI of 40.0-44.9, adult ([facility]) Opioid use Chronic, continuous use of opioids Chronic back pain greater than 3 months duration Urge incontinence- Primary Morbid obesity with BMI of 40.0-44.9, adult ([facility]) 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 Stage 3a chronic kidney disease (HCC) ([facility] Chronic respiratory failure with hypoxia ([facility]) Chronic obstructive pulmonary disease with acute lower respiratory infection ([facility])- Primary Primary HSV infection of mouth Pulmonary emphysema, unspecified emphysema type ([facility]/HCC)- Primary Flu-like symptoms- Primary Morbid (severe) obesity due to excess calories ([facility]) Body mass index (BMI) 40.0-44.9, adult ([facility]) Pulmonary emphysema, unspecified emphysema type ([facility]/HCC) Chronic respiratory failure with hypoxia (CMS/HCC) Essential hypertension ([facility]/HCC) Unspecified essential hypertension Pneumonia due to infectious organism, unspecified laterality, unspecified part of lung- Primary documented in this encounter [facility] HealthcareEvaluation note* Diagnosis Moderate episode of recurrent major depressive disorder ([facility]/HCC)- Primary Moderate persistent asthma with exacerbation (CMS/HCC) Unspecified asthma, with exacerbation Medicare annual wellness visit, subsequent Severe persistent asthma with acute exacerbation ([facility]/HCC)- Primary Hospital discharge follow-up Other follow-up [...] Moderate episode of recurrent major depressive disorder ([facility])- Primary Moderate persistent asthma with exacerbation ([facility]) Unspecified asthma, with exacerbation Medicare annual wellness visit, subsequent Severe persistent asthma with acute exacerbation ([facility])- Primary Hospital discharge follow-up Other follow-up examination Severe persistent asthma without complication ([facility]/HCC)- Primary Essential hypertension ([facility] Unspecified essential hypertension JEANNE (acute kidney injury) ([facility]) Leukocytosis, unspecified type Chronic respiratory failure with hypoxia ([facility]) Chronic bilateral low back pain without sciatica- Primary Vitamin D deficiency Chronic bilateral low back pain without sciatica- Primary Pneumonia due to infectious organism, unspecified laterality, unspecified part of lung- Primary Screening mammogram for breast cancer Chronic respiratory failure with hypoxia ([facility]) Pulmonary emphysema, unspecified emphysema type ([facility]) Essential hypertension ([facility]) Unspecified essential hypertension Morbid obesity with BMI of 40.0-44.9, adult ([facility]) Hospital discharge follow-up- Primary Other follow-up examination Chronic respiratory failure with hypoxia ([facility]) Severe persistent asthma without complication ([facility] Chronic respiratory failure with hypoxia ([facility])- Primary Hospital discharge follow-up Other follow-up examination Benign essential HTN ([facility] Chronic heart failure with preserved ejection fraction ([facility] Severe persistent asthma without complication ([facility] Moderate mixed hyperlipidemia not requiring statin therapy ([facility]) Morbid obesity with BMI of 40.0-44.9, adult ([facility]) Opioid use Chronic, continuous use of opioids Chronic back pain greater than 3 months duration Urge incontinence- Primary Morbid obesity with BMI of 40.0-44.9, adult ([facility]) 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 Stage 3a chronic kidney disease (HCC) ([facility] Chronic respiratory failure with hypoxia ([facility]) Chronic obstructive pulmonary disease with acute lower respiratory infection ([facility])- Primary Primary HSV infection of mouth Pulmonary emphysema, unspecified emphysema type ([facility])- Primary Flu-like symptoms- Primary Morbid (severe) obesity due to excess calories ([facility]) Body mass index (BMI) 40.0-44.9, adult ([facility]) Pulmonary emphysema, unspecified emphysema type ([facility]/HCC) Chronic respiratory failure with hypoxia ([facility]/HCC) Essential hypertension ([facility]) Unspecified essential hypertension Pneumonia due [...] syndrome (RLS) Candidiasis documented in this encounter [facility] HealthcareEvaluation note* Diagnosis Moderate episode of recurrent major depressive disorder (CMS/HCC)- Primary Moderate persistent asthma with exacerbation (CMS/HCC) Unspecified asthma, with exacerbation Medicare annual wellness visit, subsequent Severe persistent asthma with acute exacerbation ([facility])- Primary Hospital discharge follow-up Other [...] Morbid obesity with BMI of 40.0-44.9, adult ([facility]) Hospital discharge follow-up- Primary Other follow-up examination Chronic respiratory failure with hypoxia (CMS/HCC) Severe persistent asthma without complication (CMS/HCC) Chronic respiratory failure with hypoxia (CMS/HCC)- Primary Hospital discharge follow-up Other follow-up examination Benign essential HTN (CMS/HCC) Chronic heart failure with preserved ejection fraction (CMS/HCC) Severe persistent asthma without complication ([facility]) Moderate mixed hyperlipidemia not requiring statin therapy ([facility]) Morbid obesity with BMI of 40.0-44.9, adult ([facility]) Opioid use Chronic, continuous use of opioids Chronic back pain greater than 3 months duration Urge incontinence- Primary Morbid obesity with BMI of 40.0-44.9, adult ([facility]) 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 Stage 3a chronic kidney disease (HCC) ([facility] Chronic respiratory failure with hypoxia ([facility]) Chronic obstructive pulmonary disease with acute lower respiratory infection ([facility])- Primary Primary HSV infection of mouth Pulmonary emphysema, unspecified emphysema type ([facility])- Primary Flu-like symptoms- Primary Morbid (severe) obesity due to excess calories ([facility]) Body mass index (BMI) 40.0-44.9, adult ([facility]) Pulmonary emphysema, unspecified emphysema type ([facility]) Chronic respiratory failure with hypoxia ([facility]) Essential hypertension ([facility]) Unspecified essential hypertension Pneumonia due to infectious organism, unspecified laterality, unspecified part of lung- Primary Pneumonia due to infectious organism, unspecified laterality, unspecified part of lung- Primary Chronic respiratory failure with hypoxia ([facility]) Severe persistent asthma, uncomplicated ([facility]) Chronic heart failure with preserved ejection fraction ([facility]) Essential hypertension ([facility]) Unspecified essential hypertension Other secondary pulmonary hypertension Chronic kidney disease, stage 3a (HCC) ([facility]) Morbid (severe) obesity due to excess calories ([facility]) Screening mammogram for breast cancer Moderate episode of recurrent major depressive disorder ([facility]) Edema of both lower extremities- Primary Spinal stenosis, lumbar region without neurogenic claudication Chronic heart failure with preserved ejection fraction ([facility]) Chronic respiratory failure with hypoxia ([facility]) Severe persistent asthma, uncomplicated ([facility]) Gastroesophageal reflux disease, unspecified whether esophagitis present Morbid (severe) obesity due to excess calories ([facility]) RLS (restless legs syndrome) Restless legs syndrome (RLS) Candidiasis Gastroesophageal reflux disease without esophagitis Esophageal reflux documented in this encounter [facility] HealthcareEvaluation note* Diagnosis Moderate episode of recurrent major depressive disorder ([facility])- Primary Moderate persistent asthma with exacerbation ([facility]) Unspecified asthma, with exacerbation Medicare [...] Morbid obesity with BMI of 40.0-44.9, adult ([facility]) Hospital discharge follow-up- Primary Other follow-up examination Chronic respiratory failure with hypoxia (CMS/HCC) Severe persistent asthma without complication (CMS/HCC) Chronic respiratory failure with hypoxia ([facility]/HCC)- Primary Hospital discharge follow-up Other follow-up examination Benign essential HTN ([facility]/HCC) Chronic heart failure with preserved ejection fraction (CMS/HCC) Severe persistent asthma without complication (CMS/HCC) Moderate mixed hyperlipidemia not requiring statin therapy (CMS/HCC) Morbid obesity with BMI of 40.0-44.9, adult ([facility]) Opioid use Chronic, continuous use of opioids Chronic back pain greater than 3 months duration Urge incontinence- Primary Morbid obesity with BMI of 40.0-44.9, adult ([facility]) 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 Stage 3a chronic kidney disease (HCC) ([facility]) Chronic respiratory failure with hypoxia ([facility]) Chronic obstructive pulmonary disease with acute lower respiratory infection ([facility])- Primary Primary HSV infection of mouth Pulmonary emphysema, unspecified emphysema type (CMS/HCC)- Primary Flu-like symptoms- Primary Morbid (severe) obesity due to excess calories ([facility]) Body mass index (BMI) 40.0-44.9, adult ([facility]) Pulmonary emphysema, unspecified emphysema type [...] Morbid (severe) obesity due to excess calories ([facility]/HCC) Restless leg syndrome Restless legs syndrome (RLS) documented in this encounter [facility] HealthcareEvaluation note* Diagnosis Moderate episode of [...] Morbid obesity with BMI of 40.0-44.9, adult ([facility]) Hospital discharge follow-up- Primary Other [...] [place]) Chronic respiratory failure with hypoxia ([facility]) Chronic obstructive pulmonary disease with acute lower respiratory infection (HCC)- Primary Primary HSV infection of mouth Pulmonary emphysema, unspecified emphysema type ([facility])- Primary Flu-like symptoms- Primary Morbid (severe) obesity due to excess calories ([facility] [place]) Body mass index (BMI) 40.0-44.9, adult ([facility] [place]) Pulmonary emphysema, unspecified emphysema type ([facility]) Chronic respiratory failure with hypoxia ([facility]) Essential hypertension Unspecified essential hypertension Pneumonia due to infectious organism, unspecified laterality, unspecified part of lung- Primary Pneumonia due to infectious organism, unspecified laterality, unspecified part of lung- Primary Chronic respiratory failure with hypoxia ([facility]) Severe persistent asthma, uncomplicated (HCC) Chronic heart failure with preserved ejection fraction (HCC) Essential hypertension Unspecified essential hypertension Other secondary pulmonary hypertension ([facility]) Chronic kidney disease, stage 3a ([facility] [place]) Morbid (severe) obesity due to excess calories ([facility] [place]) Screening mammogram for breast cancer Moderate episode of recurrent major depressive disorder ([facility]) Edema of both lower extremities- Primary Spinal stenosis, lumbar region without neurogenic claudication Chronic heart failure with preserved ejection fraction (HCC) Chronic respiratory failure with hypoxia (HCC) Severe persistent asthma, uncomplicated ([facility]) Gastroesophageal reflux disease, unspecified whether [...] [place]) Chronic respiratory failure with hypoxia ([facility]) Chronic obstructive pulmonary disease with [...] Morbid (severe) obesity due to excess calories ([facility]) RLS (restless legs syndrome) Restless legs syndrome (RLS) Candidiasis Moderate episode of recurrent major depressive disorder (HCC)- Primary Pulmonary emphysema, unspecified emphysema type (HCC) Chronic respiratory failure with hypoxia (HCC) Morbid (severe) obesity due to excess calories ([facility]) Restless leg syndrome Restless legs syndrome (RLS) Chronic bilateral low back pain without sciatica documented in this encounter [facility] HealthcareEvaluation note* Diagnosis Moderate episode of [...] chest wall Stage 3a chronic kidney disease ([facility]) Chronic respiratory failure with hypoxia (HCC) Chronic obstructive pulmonary disease with acute lower respiratory infection (HCC)- Primary Primary HSV infection of mouth Pulmonary emphysema, unspecified emphysema type (HCC)- Primary Flu-like symptoms- Primary Morbid (severe) obesity due to excess calories ([facility]) Body mass index (BMI) 40.0-44.9, adult ([facility]) Pulmonary emphysema, unspecified emphysema type [...] hypertension (HCC) Chronic kidney disease, stage 3a ([facility]) Morbid (severe) obesity due to excess calories ([facility]) Screening mammogram for breast cancer Moderate episode of recurrent major depressive disorder ([facility]) Edema of both lower extremities- Primary Spinal stenosis, lumbar region without neurogenic claudication Chronic heart failure with preserved ejection fraction (HCC) Chronic respiratory failure with hypoxia (HCC) Severe persistent asthma, uncomplicated (HCC) Gastroesophageal reflux disease, unspecified whether esophagitis present Morbid (severe) obesity due to excess calories ([facility]) RLS (restless legs syndrome) Restless legs syndrome (RLS) Candidiasis Moderate episode of recurrent major depressive disorder (HCC)- Primary Pulmonary emphysema, unspecified emphysema type (HCC) Chronic respiratory failure with hypoxia (HCC) Morbid (severe) obesity due to excess calories ([facility]) Restless leg syndrome Restless legs syndrome (RLS) Restless leg syndrome Restless legs syndrome (RLS) documented in this encounter [facility] HealthcareEvaluation note* Diagnosis Moderate episode of [...] [place]) Chronic respiratory failure with hypoxia ([facility]) Chronic obstructive pulmonary disease with acute lower respiratory infection ([facility])- Primary Primary HSV infection of mouth Pulmonary emphysema, unspecified emphysema type ([facility])- Primary Flu-like symptoms- Primary Morbid (severe) obesity due to excess calories ([facility] [place]) Body mass index (BMI) 40.0-44.9, adult ([facility] [place]) Pulmonary emphysema, unspecified emphysema type ([facility]) Chronic respiratory failure with hypoxia [...] Morbid (severe) obesity due to excess calories ([facility]) Restless leg syndrome Restless legs syndrome (RLS) Chronic heart failure with preserved ejection fraction (HCC)- Primary Edema of both lower extremities documented in this encounter [facility] HealthcareEvaluation note* Diagnosis Moderate episode of [...] chest wall Stage 3a chronic kidney disease ([facility]) Chronic respiratory failure with hypoxia (HCC) Chronic obstructive pulmonary disease with acute lower respiratory infection (HCC)- Primary Primary HSV infection of mouth Pulmonary emphysema, unspecified emphysema type (HCC)- Primary Flu-like symptoms- Primary Morbid (severe) obesity due to excess calories ([facility]) Body mass index (BMI) 40.0-44.9, adult ([facility] [...] hypertension (HCC) Chronic kidney disease, stage 3a ([facility]) Morbid (severe) obesity due to excess calories ([facility]) Screening mammogram for breast cancer Moderate episode of recurrent major depressive disorder ([facility]) Edema of both lower extremities- Primary Spinal stenosis, lumbar region without neurogenic claudication Chronic heart failure with preserved ejection fraction (HCC) Chronic respiratory failure with hypoxia (HCC) Severe persistent asthma, uncomplicated (HCC) Gastroesophageal reflux disease, unspecified whether esophagitis present Morbid (severe) obesity due to excess calories ([facility]) RLS (restless legs syndrome) Restless legs syndrome (RLS) Candidiasis Moderate episode of recurrent major depressive disorder (HCC)- Primary Pulmonary emphysema, unspecified emphysema type (HCC) Chronic respiratory failure with hypoxia (HCC) Morbid (severe) obesity due to excess calories ([facility]) Restless leg syndrome Restless legs syndrome (RLS) Moderate episode of recurrent major depressive disorder (HCC)- Primary Morbid (severe) obesity due to excess calories ([facility]) Candidiasis of breast Skin pustule Unspecified local infection of skin and subcutaneous tissue RLS (restless legs syndrome) Restless legs syndrome (RLS) documented in this encounter [facility] HealthcareEvaluation note* Diagnosis Moderate episode of [...] [place]) Chronic respiratory failure with hypoxia ([facility]) Chronic obstructive pulmonary disease with acute lower respiratory infection ([facility])- Primary Primary HSV infection of mouth Pulmonary emphysema, unspecified emphysema type ([facility])- Primary Flu-like symptoms- Primary Morbid (severe) obesity due to excess calories ([facility] [place]) Body mass index (BMI) 40.0-44.9, adult ([facility] [place]) Pulmonary emphysema, unspecified emphysema type ([facility]) Chronic respiratory failure with hypoxia [...] Moderate episode of recurrent major depressive disorder ([facility]) Edema of both lower extremities- [...] and subcutaneous tissue documented in this encounter [facility] HealthcareEvaluation note* Diagnosis Moderate episode of [...] hypertension (HCC) Chronic kidney disease, stage 3a ([facility]) Morbid (severe) obesity due to excess calories ([facility]) Screening mammogram for breast cancer Moderate episode of recurrent major depressive disorder (HCC) Edema of both lower extremities- Primary Spinal stenosis, lumbar region without neurogenic claudication Chronic heart failure with preserved ejection fraction (HCC) Chronic respiratory failure with hypoxia (HCC) Severe persistent asthma, uncomplicated (HCC) Gastroesophageal reflux disease, unspecified whether esophagitis present Morbid (severe) obesity due to excess calories ([facility]) RLS (restless legs syndrome) Restless legs syndrome (RLS) Candidiasis Moderate episode of recurrent major depressive disorder (HCC)- Primary Pulmonary emphysema, unspecified emphysema type (HCC) Chronic respiratory failure with hypoxia (HCC) Morbid (severe) obesity due to excess calories ([facility]) Restless leg syndrome Restless legs syndrome (RLS) Moderate episode of recurrent major depressive disorder (HCC)- Primary Morbid (severe) obesity due to excess calories ([facility]) Candidiasis of breast Skin pustule Unspecified local infection of skin and subcutaneous tissue RLS (restless legs syndrome) Restless legs syndrome (RLS) Moderate episode of recurrent major depressive disorder (HCC) documented in this encounter [facility] HealthcareEvaluation note* Diagnosis Moderate episode of [...] [place]) Chronic respiratory failure with hypoxia ([facility]) Chronic obstructive pulmonary disease with acute lower respiratory infection ([facility])- Primary Primary HSV infection of mouth Pulmonary emphysema, unspecified emphysema type ([facility])- Primary Flu-like symptoms- Primary Morbid (severe) obesity due to excess calories ([facility] [place]) Body mass index (BMI) 40.0-44.9, adult ([facility] [place]) Pulmonary emphysema, unspecified emphysema type ([facility]) Chronic respiratory failure with hypoxia [...] Moderate episode of recurrent major depressive disorder ([facility]) Edema of both lower extremities- [...] 8:49amMorbid obesity due to excess [id number] 8:49am [facility] Work Phone: History general Narrative - Reported* Type Description Date Medical History Colon Cancer 2004 Medical HistoryCOPDMedical HistoryMRSA IN LEFT HIPMedical HistoryMORBID OBESITY DUE TO EXCESS CALORIESMedical HistoryRESPIRATORY FAILUREMedical HistoryACUTE POSTHEMORRHAGIC ANEMIAMedical 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 HistoryHYPER LIPIDEMIAMedical HistoryMAJOR DEPRESSIVE DISORDERMedical HistoryGERDMedical HistoryMUSCLE SPASMMedical HistoryUNSPECIFIED ASTHMAMedical HistoryDYSPNEASurgical Historyback [id number] History back [id number] Historytubal [id number] Historytubal [id number] Surgical Historyfoot [id number] Historyleft total hip arthoplasty07/2016 Surgical History(R) [facility] - DR SERRATO10/18/2018Surgical History1 INCH OF BONE OFF OF RIGHT [id number] HistoryLEFT HIP RESVISION03/2020Hospitalization Historysee [id number] History1 week during [id number] Hospitalization HistoryISSUE WITH HIP COMING OUT AND NEEDING TO PUT IT BACK IN 08/2019Hospitalization HistoryHIP REVISION03/2020 [facility] Other History general Narrative - Reported* Type Description Date Medical History Colon Cancer 2004 Medical HistoryCOPDMedical HistoryMRSA IN LEFT HIPMedical HistoryMORBID OBESITY DUE TO EXCESS CALORIESMedical HistoryRESPIRATORY FAILUREMedical HistoryACUTE POSTHEMORRHAGIC ANEMIAMedical 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 HistoryHYPER LIPIDEMIAMedical HistoryMAJOR DEPRESSIVE DISORDERMedical HistoryGERDMedical HistoryMUSCLE SPASMMedical HistoryUNSPECIFIED ASTHMAMedical HistoryDYSPNEAMedical HistoryCOVID 04/2023Surgical Historyback [id number] Historyback [id number] Historytubal cmisuwle8939Ivfdasgj Historytubal [id number] Historyfoot sx1/2014Surgical Historyleft total hip arthoplasty07/2016Surgical History(R) TKA - DR SERRATO10/18/2018 Surgical History1 INCH OF BONE OFF OF RIGHT [id number] HistoryLEFT HIP RESVISION03/2020Hospitalization Historysee [id number],1986Hospitalization History1 week during ibqzs1739Evlliashiptxpye HistoryISSUE WITH HIP COMING OUT AND NEEDING TO PUT IT BACK IN08/2019Hospitalization HistoryHIP REVISION03/2020 Hospitalization HistoryCOVID X 2 WEEKS04/2023 [facility] Hospital course Narrative No data available for this section [facility] Hospital Discharge instructions Additional Instructions DISCHARGE [...] if you have any problems. -Office number [phone] Work Phone: Hospital Discharge instructions No data available for this section [facility] Hospital Discharge instructionsAmbulatory Orders* Referral to Pulmonology Time Frame: 07/17/25, Location: None [facility] Work Phone: Progress note No data available for this section [facility] reason for referral (narrative)No reason for referral information availableFisher-[facility] Work Phone: Advance Directives Advance [...] 18, 2025 8:39am Encounter for subsequent maeve [facility] wellness visit (AWV) in Medicare patient August [...] prosecute any alcohol or drug abuse patient.[facility] HospitalIn the event this information is protected by the Federal Confidentiality of Alcohol and Drug Abuse Patient Records regulations: The Federal rules restrict any use of the information to criminally investigate or prosecute any alcohol or drug abuse patient.[facility] HospitalIn the event this information is protected by the Federal Confidentiality of Alcohol and Drug Abuse Patient Records regulations: The Federal rules restrict any use of the information to criminally investigate or prosecute any alcohol or drug abuse patient.[facility] HospitalIn the event this information is protected by the Federal Confidentiality of Alcohol and Drug Abuse Patient Records regulations: The Federal rules restrict any use of the information to criminally investigate or prosecute any alcohol or drug abuse patient.[facility] INFORMATION SOURCE (unrecogn ized section and content) DATE CREATED AUTHOR 03/03/2022 [facility] DATE CREATED AUTHOR AUTHOR'S ORGANIZ ATION 04/17/2023 [facility] DATE CREATED AUTHOR AUTHOR'S ORGANIZ ATION 10/20/2024 [facility] DATE CREATED AUTHOR AUTHOR'S ORGANIZ ATION 11/18/2024 [facility] DATE CREATED AUTHOR AUTHOR'S ORGANIZ ATION 01/25/2025 [facility] DATE CREATED AUTHOR AUTHOR'S ORGANIZ ATION 03/26/2025 [facility] DATE CREATED AUTHOR AUTHOR'S ORGANIZ ATION 06/20/2025 [facility] DATE CREATED AUTHOR AUTHOR'S ORGANIZ ATION 07/19/2025 [facility] DATE CREATED AUTHOR AUTHOR'S ORGANIZ ATION 07/23/2025 [facility] REASON FOR VISIT (unrecogniz ed section and content) ReasonOnset DateCommentsMedication Peetrpii31/07/2024Med Jgxlgf954Reason Onset DateCommentsMed Nsaror484ReasonCommentsMed RefillReasonComments Follow-upShe presents today for a 3 month follow up for her asthma.Reason CommentsSuspicious Skin LesionSpecialtyDiagnoses / ProceduresReferred By Contact Referred To ContactDermatology Diagnoses 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 Pt does do chair exercises four times a week and walks (with walker) but due to her health conditions she is limited. Pt is in a wheelchair with very limited ambulation -SCRReasonOnset DateCommentsMed Ejutzh0707/17/2024 ReasonCommentsCoughNauseaReasonCommentsHospital Xnqrcm-hzDdouzcZqacybcbRrgqgh-tc Suspicious Skin LesionReasonCommentsSkin CheckReasonOnset DateCommentsMed Refill 02/26/2025ReasonOnset DateCommentsMed Uwqgyu2404/29/2025ReasonCommentsCOPDReason CommentsSkin CheckSuspicious Skin Lesion Care Teams (unrecognized [...] Date Tapan Zazueta MD [address] [place] [address] PCP - GeneralFamily Medicine06/10/24 Ariella Mathis DO [address] [place] [address] Referring PhysicianNeurolog01/02/24 Aida Reese NP [address] [place] [address] Nurse PractitionerFamily Medicine06/10/24Team MemberRelationshipSpecialtyStart DateEnd Date Tapan Zazueta MD [address] [place] [address] PCP - GeneralFamily Medicine06/10/24 Ariella Mathis DO [address] [place] [address] Referring PhysicianNeurology2 Aida Reese NP [address] [place] [address] Nurse Pract[facility]er[facility] Medicine06/10/24Team MemberRelationshipSpecialtyStart DateEnd Date Tapan Zazueta MD [address] [place] [address] PCP - Generalmily Medicine06/10/24 Ariella Mathis DO [address] [place] [address] Referring PhysicianNeurology2 Aida Reese NP [address] [place] [address] Nurse PractitionerCo[facility] Medicine06/10/24Team MemberRelationshipSpecialtyStart DateEnd Date Tapan Zazueta MD [address] [place] [address] PCP - GeneralFamily Medicine06/10/24 Ariella Mathis DO [address] [place] [address] Referring PhysicianNeurology2 Aida Reese NP [address] [place] [address] Nurse Pract[facility]erCo[facility] Medicine06/10/24Team MemberRelationshipSpecialtyStart DateEnd Date Tapan Zazueta MD [address] [place] [address] PCP - GeneralCo[facility] Hospital Medicine06/10/24 Ariella Mathis DO [address] [place] [address] Referring PhysicianNeurolog01/02/24 Aida Reese NP [address] [place] [address] Nurse PractitionerSt[facility]06/10/24 Team Status: Active Member Role Status Dates Aida Reese STAKE DRIVER-C Primary Care Provider Ac tive Team Status: Active Member Role Status Dates Aida Reese STAKE DRIVER-C Primary Care Provider Ac tive Start: June 29, 2024 Yunior Stock DOAttkarla ProviderActiveStart: June 29, 2024 Team Status: Active Member Role Status Dates Aida Reese STAKE DRIVER-C Primary Care Provider Ac tive Start: August 08, 2024 End: August 12olivier Stock DOAttending ProviderActiveStart: August 08, 2024 End: August 12, 2024Bryant Lora ProviderActiveStart: August 08, 2024 End: August 12, 2024 Team Status: Inactive Member Role Status Dates Allan Lacey MD Attending Provider Active Start: September 05, 2024 End: September 05chase Reese NP-[facility] ProviderActive Start: September 05, 2024 End: September 05, 2024Team MemberRelationshipSpecialtyStart DateEnd Date Tapan Zazueta MD [address] [place] [address] PCP - [facility]Cl[facility]ally [facility]06/10/24 Ariella Mathis DO [address] [place], [place] [address] Referring PhysicianNeurology2 Aida Reese NP [address] [place] [address] Nurse Pract[facility]Cl[facility]06/10/24Team MemberRelationshipSpecialtyStart DateEnd Date aTpan Zazueta MD [address] [place] [address] PCP - [facility]Co[facility] Medicine06/10/24 Ariella Mathis DO [address] [place] [address] Referring PhysicianNeurology2 Aida Reese NP [address] [place] [address] Nurse Pract[facility]erCo[facility] Medicine06/10/24Team MemberRelationshipSpecialtyStart DateEnd Date Tapan Zazueta MD [address] [place] [address] PCP - Generalmily Medicine06/10/24 Ariella Mathis DO [address] [place] [address] Referring PhysicianNeurolog01/02/24 Aida Reese NP [address] [place] [address] Nurse Pract[facility]erCo[facility] Medicine06/10/24Team MemberRelationshipSpecialtyStart DateEnd Date Tapan Zazueta MD [address] [place] [address] PCP - [facility]Co[facility] Medicine06/10/24 Ariella Mathis DO [address] [place] [address] Referring PhysicianNeurology2 Aida Reese NP [address] [place] [address] Nurse Pract[facility]er[facility] Medicine06/10/24Team MemberRelationshipSpecialtyStart DateEnd Date Tapan Zazueta MD [address] [place] [address] PCP - [facility]Co[facility] Medicine06/10/24 Ariella Mathis DO [address] [place] [address] Referring PhysicianNeurology2 Aida Reese NP [address] [place] [address] Nurse Pract[facility] Medicine06/10/24Team MemberRelationshipSpecialtyStart DateEnd Date Tapan Zazueta MD [address] [place] [address] PCP - [facility]Co[facility] Medicine06/10/24 Ariella Mathis DO [address] [place] [address] Referring PhysicianNeurology2 Aida Reese, RIKKI [address] [place] [address] Nurse PractitionerSt. [facility]06/10/24Te MemberRelationshipSpecialtyStart DateEnd Date Tapan Zazueta MD [address] [place] [address] PCP - [facility] Medicine06/10/24 Ariella Mathis DO [address] [place] [address] Referring PhysicianNeurology2 Aida Reese, RIKKI [address] [place] [address] Nurse Practitioner[facility] Medicine06/10/24Te MemberRelationshipSpecialtyStart DateEnd Date Tapan Zazueta MD [address] [place] [address] PCP - Generalmily Medicine06/10/24 Ariella Mathis DO [address] [place] [address] Referring PhysicianNeurolog01/02/24 Aida Reese NP [address] [place] [address] Nurse PractitionerSt. [facility]06/10/24Team MemberRelationshipSpecialtyStart DateEnd Date Tapan Zazueta MD [address] [place] [address] PCP - [facility]06/10/24 Ariella Mathis DO [address] [place] [address] Referring PhysicianNeurolog01/02/24 Aida Reese NP [address] [place] [address] Nurse PractitionerSt. [facility]06/10/24Team MemberRelationshipSpecialtyStart DateEnd Date Tapan Zazueta MD [address] [place] [address] PCP - [facility] Medicine06/10/24 Ariella Mathis DO [address] [place] [address] Referring PhysicianNeurology2 Aida Reese NP [address] [place] [address] Nurse Practitionermily Medicine06/10/24Team MemberRelationshipSpecialtyStart DateEnd Date Tapan Zazueta MD [address] [place] [address] PCP - GeneralFamily Medicine06/10/24 Ariella Mathis DO [address] [place] [address] Referring PhysicianNeurology2 Aida Reese, RIKKI [address] [place] [address] Nurse Pract[facility] Medicine06/10/24Team MemberRelationshipSpecialtyStart DateEnd Date Tapan Zazueta MD [address] [place] [address] PCP - Generalmily Medicine06/10/24 Ariella Mathis DO [address] [place] [address] Referring PhysicianNeurology2 Aida Reese, RIKKI [address] [place] [address] Nurse Pract[facility] Medicine06/10/24Team MemberRelationshipSpecialtyStart DateEnd Date Tapan Zazueta MD [address] [place] [address] PCP - Generalmily Medicine06/10/24 Ariella Mathis DO [address] [place] [address] Referring PhysicianNeurolog01/02/24 Aida Reese NP [address] [place] [address] Nurse PractitionerSt. [facility]06/10/24Team MemberRelationshipSpecialtyStart DateEnd Date Tapan Zazueta MD [address] [place] [address] PCP - [facility] Medicine06/10/24 Ariella Mathis DO [address] [place] [address] Referring PhysicianNeurology2 Aida Reese, RIKKI [address] [place] [address] Nurse PractitionerSt. [facility]06/10/24Team MemberRelationshipSpecialtyStart DateEnd Date Tapan Zazueta MD [address] [place] [address] PCP - [facility]Co[facility] Medicine06/10/24 Ariella Mathis DO [address] [place] [address] Referring PhysicianNeurology2 Aida Reese NP [address] [place] [address] Nurse Pract[facility] Medicine06/10/24 Team Status: Inactive Member Role Status Dates Allan Lacey MD Attending Provider Active Start: September 12, 2024 End: September 12chase Reese NP-[facility] Care ProviderActive Start: September 12, 2024 End: September 12, 2024Team MemberRelationshipSpecialtyStart DateEnd Date Tapan Zazueta MD [address] [place] [address] PCP - [facility] Medicine06/10/24 Ariella Mathis DO [address] [place] [address] Referring PhysicianNeurology2 Aida Reese NP [address] [place] [address] Nurse PractitionerSt. [facility]06/10/24Team MemberRelationshipSpecialtyStart DateEnd Date Tapan Zazueta MD [address] [place] [address] PCP - [facility] Medicine06/10/24 Ariella Mathis DO [address] [place] [address] Referring PhysicianNeurology2 Aida Reese NP [address] [place] [address] Nurse Pract[facility] Medicine06/10/24Team MemberRelationshipSpecialtyStart DateEnd Date Tapan Zazueta MD [address] [place] [address] PCP - [facility] Medicine06/10/24 Ariella Mathis DO [address] [place] [address] Referring PhysicianNeurology2 Aida Reese, RIKKI [address] [place] [address] Nurse PractitionerSt. [facility]06/10/24Team MemberRelationshipSpecialtyStart DateEnd Date Tapan Zazueta MD [address] [place] [address] PCP - [facility] Medicine06/10/24 Ariella Mathis DO [address] [place], [place] [address] Referring PhysicianNeurology2 Aida Reese, RIKKI [address] [place] [address] Nurse Pract[facility] Medicine06/10/24Team MemberRelationshipSpecialtyStart DateEnd Date Tapan Zazueta MD [address] [place] [address] PCP - [facility] Medicine06/10/24 Ariella Mathis DO [address] [place] [address] Referring PhysicianNeurolog01/02/24 Aida Reese NP [address] [place] [address] Nurse Pract[facility]06/10/24Team MemberRelationshipSpecialtyStart DateEnd Date Tapan Zazueta MD [address] [place] [address] PCP - [facility] Medicine06/10/24 Ariella Mathis DO [address] [place] [address] Referring PhysicianNeurolog01/02/24 Aida Resee NP [address] [place] [address] Nurse PractitionerSt. [facility]06/10/24Team MemberRelationshipSpecialtyStart DateEnd Date Taapn Zazueta MD [address] [place] [address] PCP - [facility] Medicine06/10/24 Ariella Mathis DO [address] [place] [address] Referring PhysicianNeurology2 Aida Reese NP [address] [place] [address] Nurse PractitionerSt. [facility]06/10/24Team MemberRelationshipSpecialtyStart DateEnd Date Tapan Zazueta MD [address] [place] [address] PCP - Generalmily Medicine06/10/24 Ariella Mathis DO [address] [place] [address] Referring PhysicianNeurology2 Aida Reese NP [address] [place] [address] Nurse Pract[facility] Medicine06/10/24Team MemberRelationshipSpecialtyStart DateEnd Date Tapan Zazueta MD [address] [place] [address] PCP - Generalmi Medicine06/10/24 Ariella Mathis DO [address] [place] [address] Referring PhysicianNeurolog01/02/24 Aida Reese NP [address] [place] [address] Nurse PractitionerSt[facility]06/10/24Team MemberRelationshipSpecialtyStart DateEnd Date Tapan Zazueta MD [address] [place] [address] PCP - [facility] Medicine06/10/24 Ariella Mathis DO [address] [place] [address] Referring PhysicianNemahamedlogy2 Aida Reese NP [address] [place] [address] Nurse Pract[facility]erCl[facility]06/10/24Team MemberRelationshipSpecialtyStart DateEnd Date Tapan Zazueta MD [address] [place] [address] PCP - GeneralFamily Medicine06/10/24 Ariella Mathis DO [address] [place] [address] Referring PhysicianNeurology2 Aida Reese NP [address] [place] [address] Nurse PractitionerSt. [facility]06/10/24Team MemberRelationshipSpecialtyStart DateEnd Date Tapan Zazueta MD [address] [place] [address] PCP - Generalmily Medicine06/10/24 Ariella Mathis DO [address] [place] [address] Referring PhysicianNeurology2 Aida Reese NP [address] [place] [address] Nurse Pract[facility] Medicine06/10/24Team MemberRelationshipSpecialtyStart DateEnd Date Tapan Zazueta MD [address] [place] [address] PCP - Generalmily Medicine06/10/24 Ariella Mathis DO [address] [place] [address] Referring PhysicianNeurology2 Aida Reese NP [address] [place] [address] Nurse [facility]06/10/24Team MemberRelationshipSpecialtyStart DateEnd Date Tapan Zazueta MD [address] [place] [address] PCP - GeneralFamily Medicine06/10/24 Ariella Mathis DO [address] [place] [address] Referring PhysicianNeurology2 Aida Reese NP [address] [place] [address] Nurse Pract[facility] Medicine06/10/24Team MemberRelationshipSpecialtyStart DateEnd Date Tapan Zazueta MD [address] [place] [address] PCP - GeneralFamily Medicine06/10/24 Ariella Mathis DO [address] [place] [address] Referring PhysicianNeurology2 Aida Reese NP [address] [place] [address] Nurse Pract[facility] Medicine06/10/24Team MemberRelationshipSpecialtyStart DateEnd Date Tapan Zazueta MD [address] [place] [address] PCP - Generalmily Medicine06/10/24 Ariella Mathis DO [address] [place] [address] Referring PhysicianNeurology2 Aida Reese NP [address] [place] [address] Nurse Pract[facility] Medicine06/10/24Team MemberRelationshipSpecialtyStart DateEnd Date Tapan Zazueta MD [address] [place] [address] PCP - Generalmi Medicine06/10/24 Ariella Mathis DO [address] [place] [address] Referring PhysicianNeurolog01/02/24 Aida Reese NP [address] [place] [address] Nurse PractitionerSt[facility]06/10/24Team MemberRelationshipSpecialtyStart DateEnd Date Tapan Zazueta MD [address] [place] [address] PCP - [facility] Medicine06/10/24 Ariella Mathis DO [address] [place] [address] Referring PhysicianNemahamedlogy2 Aida Reese NP [address] [place] [address] Nurse Pract[facility] Medicine06/10/24Team MemberRelationshipSpecialtyStart DateEnd Date Tapan Zazueta MD [address] [place] [address] PCP - GeneralFamily Medicine06/10/24 Ariella Mathis DO [address] [place] [address] Referring PhysicianNeurology2 Aida Reese NP [address] [place] [address] Nurse PractitionerSt[facility]06/10/24Team MemberRelationshipSpecialtyStart DateEnd Date Tapan Zazueta MD [address] [place] [address] PCP - Generalmi Medicine06/10/24 Ariella Mathis DO [address] [place] [address] Referring PhysicianNeurology2 Aida Reese NP [address] [place] [address] Nurse PractitionerSt. [facility]06/10/24Team MemberRelationshipSpecialtyStart DateEnd Date Tapan Zazueta MD [address] [place] [address] PCP - [facility] Medicine06/10/24 Ariella Mathis DO [address] [place] [address] Referring PhysicianNeurology2 Aida Reese NP [address] [place] [address] Nurse Pract[facility]06/10/24Team MemberRelationshipSpecialtyStart DateEnd Date Tapan Zazueta MD [address] [place] [address] PCP - GeneralFamily Medicine06/10/24 Ariella Mathis DO [address] [place] [address] Referring PhysicianNeurology2 Aida Reese NP [address] [place] [address] Nurse Pract[facility]06/10/24Team MemberRelationshipSpecialtyStart DateEnd Date Tapan Zazueta MD [address] [place] [address] PCP - GeneralFamily Medicine06/10/24 Ariella Mathis DO [address] [place] [address] Referring PhysicianNeurology2 Aida Reese NP [address] [place] [address] Nurse Pract[facility]06/10/24Team MemberRelationshipSpecialtyStart DateEnd Date Tapan Zazueta MD [address] [place] [address] PCP - [facility]Co[facility] Medicine06/10/24 Ariella Mathis DO [address] [place] [address] Referring PhysicianNeurology2 Aida Reese NP [address] [place] [address] Nurse PractitionerSt[facility]06/10/24Team MemberRelationshipSpecialtyStart DateEnd Date Tapan Zazueta MD [address] [place] [address] PCP - [facility] Medicine06/10/24 Ariella Mathis DO [address] [place] [address] Referring PhysicianNeurolog01/02/24 Aida Reese NP [address] [place] [address] Nurse PractitionerSt. [facility]06/10/24 Team Status: Active Member Role Status Dates [...] Role Status Dates Kaylene J Aichholz , STAKE DRIVER-C Primary Care Provider Active Start: July 18, 2025 Kaylene López STAKE DRIVER-CAttending ProviderActiveStart: July 18, 2025 Team Status: Inactive Member Role Status Dates Kaylene López STAKE DRIVER-C Primary Care Provider Active Start: August 04, 2025 End: August 04, 2025Kaylene López STAKE DRIVER-CAttending ProviderActiveStart: August 04, 2025 End: August 04, 2025Team MemberRelationshipSpecialtyStart DateEnd Date Tapan Zazueta MD [address] [place] [address] PCP - [facility] Medicine06/10/24 Ariella Mathis DO [address] [place] [address] Referring PhysicianNeurolog01/02/24 Aida Reese NP [address] [place] [address] Nurse Pract[facility] Medicine06/10/24 Team Status: Inactive Member Role Status Dates Kaylene López STAKE DRIVER-C Primary Care Provider Active Start: August 18, 2025 End: August 18, 2025Kaylene López NP-CAttending ProviderActiveStart: August 18, 2025 End: August 18, 2025Team MemberRelationshipSpecialtyStart DateEnd Date Shaikh Ohara MD PCP - [facility]ern[facility] Tapan Zazueta MD [address] [place] [address] PCP - [facility]06/10/24 Ariella Mathis DO [address] [place] [address] Referring PhysicianNeurology2 Aida Reese NP Nurse Pract[facility]erCl[facility]06/10/24Team MemberRelationshipSpecialtyStart DateEnd Date Shaikh Ohara MD PCP - GeneralInternal Medicine Tapan Zazueta MD [address] [place] [address] PCP - GeneralFamily Medicine06/10/24 Ariella Mathis DO [address] [place] [address] Referring PhysicianNeurology2 Aida Reese NP Nurse PractitionerSt[facility]06/10/24Team MemberRelationshipSpecialtyStart DateEnd Date Shaikh Ohara MD PCP - GeneralInternal Medicine Shaikh Ohara MD PCP - GeneralInternal Medicine Tapan Zazueta MD [address] [place] [address] PCP - GeneralFamily Medicine06/10/24 Ariella Mathis DO [address] [place] [address] Referring PhysicianNeurolog01/02/24 Aida Reese NP Nurse PractitionerFaarly Medicine06/10/24 Goals (unrecognized section and content) Goals [...] BE BASED ON THE PRIMARY CLINICAL RECORDS. [employer] provides no warranty or guarantee of the accuracy or completeness of information in this document.
--- NOTE | 2025-10-15 08:14 | PM.CN ---
Consult Note: HPI Data of Consult Patient: known to practice within the last 3 years Consult date: 10/15/25 Requesting Physician: Violet Saucedo NP Primary Care Provider: Kaylene López NP Consult Narrative Reason for consult: chronic right hip pain Narrative: Diana Champion a pleasant 70 year old female with chronic right SIJ and right hip pain > 3 years unresponsive to > 6 weeks of PT/HEP, heat, ice, tylenol, NSAIDs. should avoid chronic NSAID use with CKD. previously underwent right hip injection 05/12/25 with mild to moderate relief for 1 month per pt. since last visit she was hospitalized twice due to covid and complications. at this time shes noting 10/10 constant right low back and right lateral hip pain, notes significant pain with standing, walking, lifting, bending, activity, and weather changes. she has continued to engage in HEP 4x/week for 15-20mins consisting of leg lifts, straight leg raises, and modified yoga poses due to mobility restrictions. she continues to utilize a walker and denies falls/injury. is currently on bupropion 150mg daily and lyrica 75mg bid through PCP. cc:: CC: Violet Saucedo NP Review of Systems ROS Musculoskeletal Reports: back pain and joint pain [facility] Medical History (Updated 10/15/25 @ 08:28 by Violet Saucedo NP) Anemia ?D64.9 - Anemia, unspecified (ICD-10) Chronic respiratory failure ?J96.10 - Chronic respiratory failure, unspecified whether with hypoxia or hypercapnia (ICD-10) Hypokalemia ?E87.6 - Hypokalemia (ICD-10) Hypomagnesemia ?E83.42 - Hypomagnesemia (ICD-10) Acute exacerbation of chronic obstructive pulmonary disease ?J44.1 - Chronic obstructive pulmonary disease with (acute) exacerbation (ICD-10) Diet-controlled diabetes mellitus ?E11.9 - Type 2 diabetes mellitus without complications (ICD-10) Tracheobronchomalacia ?J39.8 - Other specified diseases of upper respiratory tract (ICD-10) 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 - Critical illness myopathy (ICD-10) Upper respiratory infection ?J06.9 - Acute upper respiratory infection, unspecified (ICD-10) Hypoxemia ?R09.02 - Hypoxemia (ICD-10) Acute and chronic respiratory failure ?J96.20 - Acute and chronic respiratory failure, unspecified whether with hypoxia or hypercapnia (ICD-10) Weakness ?R53.1 - Weakness (ICD-10) RLL pneumonia ?J18.9 - Pneumonia, unspecified organism (ICD-10) Acute viral syndrome ?B34.9 - Viral infection, unspecified (ICD-10) Asthma exacerbation in COPD ?J44.1 - Chronic obstructive pulmonary disease with (acute) exacerbation (ICD-10) Hypomagnesemia ?E83.42 - Hypomagnesemia (ICD-10) Acute hypokalemia ?E87.6 - Hypokalemia (ICD-10) Pneumonia ?J18.9 - Pneumonia, unspecified organism (ICD-10) Melanoma ?C43.9 - Malignant melanoma of skin, unspecified (ICD-10) Mediastinal lymphadenopathy ?R59.0 - Localized enlarged lymph nodes (ICD-10) Restrictive lung disease ?J98.4 - Other disorders of lung (ICD-10) CAD (coronary artery disease) ?I25.10 - Atherosclerotic heart disease of [place] coronary artery without angina pectoris (ICD-10) Chronic heart failure with preserved ejection fraction (HFpEF) ?I50.32 - Chronic diastolic (congestive) heart failure (ICD-10) Acute exacerbation of COPD with asthma ?J44.1 - Chronic obstructive pulmonary disease with (acute) exacerbation (ICD-10) ?J45.901 - Unspecified asthma with (acute) exacerbation (ICD-10) Lumbar radiculopathy ?M54.16 - Radiculopathy, lumbar region (ICD-10) Encounter for long-term opiate analgesic use ?Z79.891 - intermediate (current) use of opiate analgesic (ICD-10) Failed back syndrome ?M96.1 - Postlaminectomy syndrome, not elsewhere classified (ICD-10) Acute exacerbation of chronic low back pain ?M54.50 - Low back pain, unspecified (ICD-10) ?G89.29 - Other chronic pain (ICD-10) Thoracic spondylosis ?M47.814 - Spondylosis without myelopathy or radiculopathy, thoracic region (ICD-10) Hypoxia ?R09.02 - Hypoxemia (ICD-10) URI (upper respiratory infection) ?J06.9 - Acute upper respiratory infection, unspecified (ICD-10) Orthostasis ?I95.1 - Orthostatic hypotension (ICD-10) Community acquired pneumonia ?J18.9 - Pneumonia, unspecified organism (ICD-10) Severe malnutrition ?E43 - Unspecified severe protein-calorie malnutrition (ICD-10) Acute exacerbation of chronic obstructive pulmonary disease (COPD) ?J44.1 - Chronic obstructive pulmonary disease with (acute) exacerbation (ICD-10) Severe persistent asthma with exacerbation ?J45.51 - Severe persistent asthma with (acute) exacerbation (ICD-10) Morbid obesity ?E66.01 - Morbid (severe) obesity due to excess calories (ICD-10) Other pulmonary collapse ?J98.19 - Other pulmonary collapse (ICD-10) Chronic respiratory failure with hypoxia ?J96.11 - Chronic respiratory failure with hypoxia (ICD-10) Bronchitis ?J40 - Bronchitis, not specified as acute or chronic (ICD-10) Acute exacerbation of chronic obstructive pulmonary disease ?J44.1 - Chronic obstructive pulmonary disease with (acute) exacerbation (ICD-10) Myofascial pain ?M79.18 - Myalgia, other site (ICD-10) Greater trochanteric bursitis ?M70.60 - Trochanteric bursitis, unspecified hip (ICD-10) Osteoarthritis of right hip ?M16.11 - Unilateral primary osteoarthritis, right hip (ICD-10) Lumbar spondylosis ?M47.816 - Spondylosis without myelopathy or radiculopathy, lumbar region (ICD-10) Lumbar postlaminectomy syndrome ?M96.1 - Postlaminectomy syndrome, not elsewhere classified (ICD-10) Lumbar stenosis with neurogenic claudication ?M48.062 - Spinal stenosis, lumbar region with neurogenic claudication (ICD-10) Depression ?F32.A - Depression, unspecified (ICD-10) Chronic low back pain ?M54.50 - Low back pain, unspecified (ICD-10) ?G89.29 - Other chronic pain (ICD-10) Hypoxia ?R09.02 - Hypoxemia (ICD-10) Heart murmur ?R01.1 - Cardiac murmur, unspecified (ICD-10) Chronic obstructive pulmonary disease ?J44.9 - Chronic obstructive pulmonary disease, unspecified (ICD-10) Asthma ?J45.909 - Unspecified asthma, uncomplicated (ICD-10) Surgical History H/O cataract removal with insertion of prosthetic lens ?Z98.49 - Cataract extraction status, unspecified eye (ICD-10) ?Z96.1 - Presence of intraocular lens (ICD-10) Status post hip surgery ?Z98.890 - Other specified postprocedural states (ICD-10) H/O foot surgery ?Z98.890 - Other specified postprocedural states (ICD-10) H/O tubal ligation ?Z98.51 - Tubal ligation status (ICD-10) History of lumbar fusion ?Z98.1 - Arthrodesis status (ICD-10) Family History Mother Family history of CHF (congestive heart failure) Family history of hypertension Father Family history of hypertension Family history of myocardial infarction Social History Within the past year, how often did you have a drink containing alcohol: never Within the past year, how often did you have six or more drinks on one occasion: never Score interpretation: A score less than 3 is consistent with normal alcohol consumption. Smoking status: Never smoker Second hand tobacco smoke exposure: No Non-prescribed substance use: denies use Previous occupational history: retired Known occupational exposures/hazards: No Highest level of school completed/degree received: Associate degree: occupational, technical, vocational program Are you now , , , , never or living with a partner: In a typical week, how many times do you talk on the telephone with family, friends, or neighbors: 3 or more times per week How often do you get together with friends or relatives: 3 or more times per week How often do you attend mu-ism or evangelical services: 4 or more times per year Do you belong to any clubs or organizations such as mu-ism groups unions, fraternal or athletic groups, or school groups: no Total score: 2 Score interpretation: A score of greater than or equal to 2 indicates the lowest level of social isolation. Little interest or pleasure in doing things: not at all Feeling down, depressed, or hopeless: not at all Feel stressed/tense/nervous/anxious/difficulty sleeping: not at all Do you think of yourself as: straight/heterosexual Gender Identity: female Meds Home Medications and Allergies Home Medications ?Medication ?Instructions ?Recorded ?Confirmed ?Type omeprazole 20 mg capsule,delayed 20 mg PO BID 04/10/23 09/14/25 History release pregabalin 75 mg capsule 75 mg PO BID 11/25/23 09/14/25 History trazodone 100 mg tablet 100 mg PO .qhs 11/25/23 09/14/25 History albuterol sulfate 2.5 mg/3 mL 2.5 mg inhalation QID PRN 06/06/24 09/14/25 History (0.083 %) solution for nebulization shortness of breath or wheezing latanoprost 0.005 % eye drops 1 drp ophthalmic (eye) .HS 08/09/24 09/14/25 History paroxetine HCl 40 mg tablet 40 mg PO HS 03/10/25 09/14/25 History pramipexole 0.25 mg tablet 0.25 mg PO .qhs PRN restless leg(s) 03/11/25 09/14/25 History ensifentrine 3 mg/2.5 mL 2.5 ml inhalation BID 04/30/25 09/14/25 History suspension for nebulization (Ohtuvayre) ferrous sulfate 325 mg (65 mg 325 mg PO .every other day 04/30/25 09/14/25 History iron) tablet (iron) trospium 60 mg capsule,extended 60 mg PO DAILY 04/30/25 09/14/25 History release 24 hr albuterol sulfate 90 mcg/actuation 2 puff inhalation Q4H PRN 07/05/25 09/14/25 History aerosol inhaler shortness of breath or wheezing bupropion HCl 150 mg 24 hr tablet, 150 mg PO .Q AM 07/05/25 09/14/25 History extended release fluticasone propionate 50 2 spray intranasal DAILY 07/05/25 09/14/25 History mcg/actuation nasal spray,suspension furosemide 20 mg tablet 20 mg PO .Q AM 07/05/25 09/14/25 History budesonide 160 mcg-glycopyr 9 2 inh inhalation BID 07/06/25 09/14/25 History mcg-formot 4.8 mcg/actuation HFA inhaler (Breztri Aerosphere) cholecalciferol (vitamin D3) 25 1,000 unit PO DAILY 07/06/25 09/14/25 History mcg (1,000 unit) chewable tablet (VitaJoy Daily D) magnesium oxide 400 mg (241.3 mg 400 mg PO .Q AM 07/06/25 09/14/25 History magnesium) tablet montelukast 10 mg tablet 10 mg PO .Q Am 07/06/25 09/14/25 History mirabegron 25 mg tablet,extended 25 mg PO DAILY 09/14/25 09/14/25 History release 24 hr (Myrbetriq) nystatin 100,000 unit/gram topical 1 applic topical BID PRN dermatitis 09/14/25 09/14/25 History cream potassium chloride 20 mEq 20 meq PO DAILY 09/14/25 09/14/25 History tablet,extended release Allergies Allergy/AdvReac Type Severity Reaction Status Date / Time No Known Drug Allergies Allergy Verified 07/05/25 15:15 Exam Constitutional Documenting provider has reviewed patient's vital signs: yes Common normals: no apparent distress, oriented x3 and alert General appearance: cooperative HENMT Common normals: normocephalic, hearing grossly normal bilaterally and moist oral mucous membranes Head and scalp: normocephalic Eye Common normals: PERRL Pupil: PERRL Neck & C-Spine Common normals: full ROM General: normal visual inspection Chest Common normals: inspection of chest normal Respiratory Common normals: normal respiratory effort, no retractions and no use of accessory muscles Back & Pelvis Lumbar spine/lower back: lumbar spinal tenderness, paraspinal muscle tenderness and straight leg raise negative bilaterally Sacroiliac joints: SI joint(s) abnormal Other: right sij positive jamil(patricks), gaenslens, thigh thrust, compression test strength 5/5 in BLE sensation intact BLE Neuro Common normals: oriented x3 Sensorium/orientation: alert Psych Common normals: mental status grossly normal, thought process normal, cooperative, affect normal, speech normal and activity/motor behavior normal Speech: normal speech Thought process: normal thought process Results Additional Findings Additional findings: If on a controlled substance or opioids, I have checked an [place] report on this patient and there are no aberrancies noted in the prescribing history.??If on a controlled substance or opioid a drug screen was completed and reviewed within the last year, and if there has not been a drug screen completed we ordered one today to monitor higher risk, state monitored pain medication use. As part of providing excellent, safe, comprehensive care, the following was completed at our patient's visit: 1. A medication reconciliation and review to ensure accurate knowledge of current/active medications, including asking our patients to inform us about any [id number] medications or herbal remedies/nutritional supplements/alternative remedies. 2. A review to specifically ensure our patients have had annual screening for screening for depression, screening for tobacco use, and screening for unhealthy alcohol use. For concerning screenings had a discussion with the patient, provided patient education, and recommended follow-up with primary care provider when appropriate. If patient noted with a risk of falling, they received education on strength, gait, and balance training to prevent future risk of falling. Portions of this note may have been carried over from the previous visit and updated as appropriate. Please note this office utilizes paper charting in addition to the electronic medical record. A list of current medications, vitals, and PMH is available there as the clinical staff outside of myself do not have access to [employer] charting during the clinic day operations. As part of providing quality comprehensive care the current medications, vitals, and PMH were reviewed in the paper chart. Assessment and Plan Assessment and Plan (1) Sacroiliitis: (2) Osteoarthritis of right hip: Assessment and Plan: unfortunately non surgical for right hip oa due to comorbidities and risks Qualifiers: Osteoarthritis type: primary Qualified Code(s): M16.11 - Unilateral primary osteoarthritis, right hip (3) Chronic right hip pain: Plan The patient has had over 3 months of moderate to severe right SIJ and right hip pain with functional impairment and inadequate response to conservative care including NSAIDS (unless there are contraindication such as concurrent blood thinners), multiple oral or topical pain medications, and home exercise program/physical therapy.? Patient has completed >6 weeks of guided home exercise program and/or formal physical therapy program without relief of their symptoms.? I have reviewed the imaging of the right hip and no red flags were identified.? The imaging reveals radiographic findings consistent with severe OA The Oswestry Disability Index was completed, and the patient scored a 48%.? proceed with right SIJ injection under fluoroscopy for chronic right SIJ pain secondary to sacroiliitis continue HEP as tolerated continue to utilize wheeled walker f/u 2 weeks after injection to review response
== END 2025-10-15 07:59 | disposition home or self-care (01) ==
LOC: PM 07:59
PROVIDERS: PCP Nurse Practitioner; Visit Provider Nurse Practitioner
DX: M46.1 Sacroiliitis, not elsewhere classified (principal); M16.11 Unilateral primary osteoarthritis, right hip; M25.551 Pain in right hip
CPT/HCPCS: G0463

== ENCOUNTER 2025-10-27 07:56 | Day surgery (SDC) | payer MEDICARE, MEDICAID, SELFPAY ==
--- OUTSIDE RECORDS SUMMARY | 2025-01-15 06:00 | XMS_ITS ---
Author Organization The [facility] in [place] Address [address] [place] [address] Care Team Providers Care Control Panel Builder Name Role Phone Kaylene López CNP Primary Care Provider Unavail Corbin Garcia Unavailable [phone] REASON FOR VISIT HOSPITAL F/U Encounters Encounter Location Date Provider Diagnosis Pulmonary Medicine [place] [address] [place] [address] 01/15/2025 Corbin Lopes Plan Of Treatment No Information Progress Notes * [place] CHAMPION ADOB: (70 yo F)Acc No.[id number]:01/15/2025 UNLOCKED PROGRESS NOTE Progress Note Patient: [place] AMARAL :?Corbin Lopes DODOB:1955???Age:69 Y ???Sex:FemaleDate:01/15/2025Phone:[phone]:[address], [address], [place], [phone]:Kaylene López CNP Subjective: * Chief Complaints: * 1 . HOSPITAL F/U. * Medical History: Objective: * Vitals: Assessment: Plan: * Treatment: * * Electronic signature of Corbin Lopes DO on 10/27/2025 at 08:00 AM ESTSign off status: PendingVisit Status:?R/S (Rescheduled) * Provider: Jona Lopes DO Date: 0 01/15/2025 Generated for Printing/Faxing/eTransmitting on:?10/27/2025 08:00 AM EST
--- OUTSIDE RECORDS SUMMARY | 2025-01-22 04:00 | XMS_ITS ---
Author Organization The [facility] in [place] Address [address] [place] [address] Care Team Providers Care Journeyman Molder Name Role Phone Kaylene López CNP Primary Care Provider Unavail Corbin Garcia Unavailable [phone] REASON FOR VISIT 3 Mos f/u COPD Encounters Encounter Location Date Provider Diagnosis Pulmonary Medicine [address] [address] 01/22/2025 Corbin Lopes Plan Of Treatment No Information Progress Notes * [place] CHAMPION ADOB: (70 yo F)Acc No.[id number]:01/22/2025 UNLOCKED PROGRESS NOTE Follow Up Patient: [place] AMARAL :?Corbinkrishna Lopes DODOB:1955???Age:69 Y ???Sex:FemaleDate:01/22/2025Phone:[phone]:[address], [address], [place], [phone]:Kaylene López CNP Subjective: * Chief Complaints: * 1 . 3 Mos f/u COPD. * Medical History: Objective: * Vitals: Assessment: Plan: * Treatment: * * Electronic signature of Corbin Lopes DO on 10/27/2025 at 08:01 AM ESTSign off status: PendingVisit Status:?R/S By O/P (Rescheduled by Office/Provider) * Provider: Jona Lopes DO Date: 0 01/22/2025 Generated for Printing/Faxing/eTransmitting on:?10/27/2025 08:01 AM EST
--- OUTSIDE RECORDS SUMMARY | 2025-07-02 05:30 | XMS_ITS ---
Author Organization [facility] in [place] Address [address] [place] [address] Care Team Providers Care Fresh Foods Clerk Name Role Phone Kaylene López CNP Primary Care Provider Unavail Corbin Garcia Unavailable [phone] REASON FOR VISIT 3m F/U - COPD Encounters Encounter Location Date Provider Diagnosis Pulmonary Medicine [address] [address] 07/02/2025 Corbin Lopes Plan Of Treatment No Information Progress Notes * Diana CHAMPION ADOB: (70 yo F)Acc No.[id number]:07/02/2025 UNLOCKED PROGRESS NOTE Follow Up Patient: Diana AMARAL :?Corbinkrishna Lopes DODOB:1955???Age:69 Y ???Sex:FemaleDate:07/02/2025Phone:[phone]:[address], [address], [place], [id number]:Kaylene López CNP Subjective: * Chief Complaints: * 1 . 3m F/U - COPD. * Medical History: Objective: * Vitals: Assessment: Plan: * Treatment: * * Electronic signature of Corbin Lopes DO on 10/27/2025 at 08:00 AM ESTSign off status: PendingVisit Status:?OFF CANC (OFFICE CANCEL) * Provider: Jona Lopes DO Date: 0 07/02/2025 Generated for Printing/Faxing/eTransmitting on:?10/27/2025 08:00 AM EST
--- OUTSIDE RECORDS SUMMARY | 2025-10-23 05:52 | XMS_ITS | Continuity of Care Document ---
Author Organization [facility] Address [address] [place] [address] Phone Care Team Providers Care Socially Responsible Investment Adviser Name Role Phone Michael Gómez Attending Provider Kaylene López TRANSPORTATION MECHANIC-C Primary Care Provider [phone] Kaylene López TRANSPORTATION MECHANIC-C Attending Provider Jenelle Michelle MD Attending Provider [facility] Moraes DO Referring Provider Care Teams Patient Care Team Team Status: Active Member Role/Relationship Status Dates Kaylene López NP-C Primary Care Provider Active Visit Care Team Team Status: Active Member Role/Relationship Status Dates Michael Gómez Attending Provider Active Start: Paolo wing 2003 Visit Care Team Team Status: Active Member Role/Relationship Status Dates Michael Gómez Attending Provider Active Start: Paolo leach2003 Visit Care Team Team Status: Inactive Member Role/Relationship Status Dates Kaylene López NP-C Primary Care Provider Active Start: August 04, 2025 End: August 04, 2025Kaylene López NP-CAttending ProviderActiveStart: August 04, 2025 End: August 04, 2025 Visit Care Team Team Status: Inactive Member Role/Relationship Status Dates Kaylene López , TRANSPORTATION MECHANIC-C Primary Care Provider Active Start: August 18, 2025 End: August 18, 2025Kaylene López , TRANSPORTATION MECHANIC-CAttending ProviderActiveStart: August 18, 2025 End: August 18, 2025 Visit Care Team Team Status: Active Member Role/Relationship Status Dates Kaylene Paolo López , TRANSPORTATION MECHANIC-C Primary Care Provider Active Start: September 03, 2025 Kaylene López , TRANSPORTATION MECHANIC-CAttending ProviderActiveStart: September 03, 2025 Visit Care Team Team Status: Active Member Role/Relationship Status Dates Kaylene Paolo López , TRANSPORTATION MECHANIC-C Primary Care Provider Active Start: September 14, 2025 Kaylene López , TRANSPORTATION MECHANIC-CAttending ProviderActiveStart: September 14, 2025 Visit Care Team Team Status: Inactive Member Role/Relationship Status Dates Kaylene Paolo López , TRANSPORTATION MECHANIC-C Primary Care Provider Active Start: September 23, 2025 End: September 23, 2025Kaylene López , TRANSPORTATION MECHANIC-CAttending ProviderActiveStart: September 23, 2025 End: September 23, 2025 Visit Care Team Team Status: Active Member Role/Relationship Status Dates Kaylene Paolo López , TRANSPORTATION MECHANIC-C Primary Care Provider Active Start: September 26, 2025 Kaylene López , TRANSPORTATION MECHANIC-CAttending ProviderActiveStart: September 26, 2025 Visit Care Team Team Status: Inactive Member Role/Relationship Status Dates Kaylene Paolo López , TRANSPORTATION MECHANIC-C Primary Care Provider Active Start: October 08, 2025 End: October 08, 2025Kaylene López , TRANSPORTATION MECHANIC-CAttending ProviderActiveStart: October 08, 2025 End: October 08, 2025 Patient Care Team Team Status: Inactive Member Role/Relationship Status Dates Kaylene Paolo López , TRANSPORTATION MECHANIC-C Primary Care Provider Active Start: October 23, 2025 End: October 23Kei Melchor ProviderActive Start: October 23, 2025 End: October 23, 2025Sahra Lopez ProviderActiveStart: October 23, 2025 End: Kade 18th, 2025 Chief Complaint and Reason for Visit Chief Complaint Admit Date ^ April 26, 2004 7:04 am ^ May 24, 2004 7:08 am Hosp F/U August 04, 2025 10:02am medicare wellness August 18, 2025 8 :39am Hospital FollowUp/Covid September 23 11:13am 2W October 08, 2025 2 :05pm Transfer of Care from Dr. Lopes, COPD De 2024 10:00am Reason for Visit Admit Date Bilateral lower extremity edema Septembe r 2024 [...] August 18, 2025 8:39am Encounter for subsequent [facility] wellness visit (AWV) in Medicare patient [...] :05pm COVID-19 October 08, 2025 2 :05pm Morbid obesity due to excess calories De 2024 2:05pm Nausea & vomiting October 08, 2025 2 :05pm Allergies, Adverse Reactions, Alerts Allergen Type Severity Reaction Last Updated Verified Status vancomycin Allergy Unknown Unknown Reaction October 23, 2025 10:06am Yes Active fentanyl Allergy Unknown Hallucinating October 232024 10:06am Yes Active DENIES METAL SENSITITIVITY Allergy Unknown Unknown Reaction March 14, 2024 7:49am No Active Social History Smoking Status Status Start Date End Date Date of Observa tion Never smoked tobacco (finding) October 23, 2025 10:12am Observation Status Observation Response Date of Response [...] extremity edemaSeptember 2024 5:55amUnknownActiveCOVID-19 September 23, 2025 6:57quKgmpiysFhhqrv1/2023Encounter for subsequent annual wellness visit (AWV) in Medicare patientSeptember 2024 5:50amUnknownActive Chronic GERD without esophagitisSeptember 2024 5:49amUnknownActiveHeart failure with preserved ejection fractionSeptember 2024 5:48amUnknownActive Type 2 diabetes mellitus without complicationsDecember 2024 1:26pmUnknown ActiveSpondylosis of lumbosacral region without myelopathy or radiculopathy July 17, 2025 5:53amUnknownActiveMajor depression, recurrent, chronic July 17, 2025 5:49amUnknownActiveChronic respiratory failure with hypoxia July 17, 2025 5:54amUnknownActiveHistory of colon cancerFebruary 2022 8:51amUnknownActiveCandidiasisSeptember 2024 5:55amUnknownActive Malignant neoplasm of rectosigmoid junctionSeptember 2024 5:48amUnknown ActiveStage 3 chronic kidney diseaseFebruary 2022 6:55amUnknownActive Secondary pulmonary hypertensionSeptember 2024 5:52amUnknownActive Hypertensive chronic kidney disease with stage 1 through stage 4 chronic kidney disease, or unspecified chronic kidney diseaseMay 2023 9:41amUnknownActive DiarrheaSeptember 2024 9:35amUnknownActiveHyperlipidemiaDecember 2024 1:28pmUnknownActiveHyperuricemiaSeptember 2024 5:52amUnknownActive LeukocytosisSeptember 2024 5:54amUnknownActiveMixed hyperlipidemia July 17, 2025 5:49amUnknownActiveMRSA (methicillin resistant Staphylococcus aureus)October 13, 2025 1:28pmUnknownActivelt. hip Post-menopauseSeptember 2024 5:50amUnknownActiveOsteoarthritisSeptember 2024 5:47amUnknownActiveSevere persistent asthmaSeptember 2024 5:53amUnknownActiveRestless legs syndrome (RLS)July 17, 2025 5:50am UnknownActiveEssential hypertensionSeptember 2024 5:52amUnknownActive Morbid obesity due to excess caloriesSeptember 2024 5:50amUnknownActiveIDA (iron deficiency anemia)July 17, 2025 5:49amUnknownActiveHistory of anal cancerDecember 2024 1:26pmUnknownActiveBMI 36.0-36.9,adultDecember 2024 1:26pmUnknownActiveCOPD (chronic obstructive pulmonary disease)December 08, 2022 6:31dzKcqfzdcNzqtxxC2@3L continuous, Non invasive vent at HSCOPD (chronic obstructive pulmonary disease)October 23, 2025 10:49amUnknownActive CKD stage 3a, GFR 45-59 ml/minSeptember 2024 5:48amUnknownActiveUrge incontinence of urineSept2024 5:50amUnknownActiveCOPD exacerbation September 23, 2025 11:48amUnknownActiveNausea & vomitingNovember 2024 11:47amUnknownActiveNauseaSeptember 2024 9:35amUnknownActiveVitamin D deficiencyMay 2023 9:51amUnknownActiveChronic sinusitis, unspecified July 17, 2025 5:51amUnknownActiveAsthmaFebruary 2022 6:55amUnknown ActiveSpinal stenosis, lumbar region without neurogenic claudicationSeptember 2024 5:52amUnknownActiveHypokalemiaMay 2023 9:42amUnknownActive HypomagnesemiaMay 2023 9:42amUnknownActive Medications Medication Status Dose Units Route Directions Qty Days Refills S tart Date Stop Date End Date Reason(s) Instructions Adherence Magnesium Oxide 400 mg magnesium tablet Discontinued 400 MG PO Daily 90 1J2023 6:18amJune 2023 4:47pmFurosemide (Lasix) 20 mg tablet Aonxxzqxwgqu73BTJVKyezz720Hlqm 2023 11:00pmJuly 2023 6:41amLosartan 50 mg eosgjgArgqxhubicgm97WTOHHanux078Lwol 4th, 2024 11:00pmJune 2023 3:49pmLosartan 50 mg xmrwylQncpslmfykil05XQKPBmfie bocnf725VeanApril 10, 2024 3:49pm April 10, 2024 3:50pmLosartan 50 mg tjodjpWuvrfrnybbbb04BTVVDyyax vtybs0851Rlnh 5th, 2024 3:50pmOctober 2023 12:09pmMagnesium Oxide 400 mg magnesium hosmubOfogme220OKVJQyxzq755Sixx 2023 4:46pmComplies with drug therapy Furosemide (Lasix) 20 mg aldcciHnlacv28YELMWzdck802Ljhm 2023 6:40am Complies with drug therapyPotassium Chloride 20 mEq tablet extended release Yemjfhgxogio22EOTLGAmuxv84Mjnihdkwl 2024 11:00pmOctober 2024 5:28am Hypokalemia Hypokalemiatake with foodPotassium Chloride 20 mEq tablet extended release Doamogvampce32SRIVNVadbg809Jrvrwgt 2024 5:27amDecember 2024 1:12pm Hypokalemia Hypokalemiatake with foodBupropion Hcl (Wellbutrin Xl) 150 mg tablet extended release 24 awLtaacs906XKZLWqgyv aagufpe089Muqusoo 2024 9:43amChronic major depressive disorder, recurrent episode Major depressive disorder, recurrent, unspecifiedComplies with drug therapy Omeprazole 20 mg capsule,delayed release(DR/EC)Fvnlbf52CTMHVxtun cxknn3094 August 25, 2025 9:58amChronic gastroesophageal reflux disease without esophagitis Gastro-esophageal reflux disease without esophagitisComplies with drug therapy Pregabalin 75 mg xxyzkxiHevinu52HVVHXczbb skfnk24931Ctcveuj 2024 8:19am Spondylosis of lumbosacral region without myelopathy or radiculopathy Spondylosis without myelopathy or radiculopathy, lumbosacral regionComplies with drug therapyMontelukast (Singulair) 10 mg dgocxqDyehenbvfryl11CAZPKmbsa at bedtimeOctalbert b. ch[facility]ler hospital 2024 4:11amOctober 2024 4:11amSevere persistent asthma Severe persistent asthma, uncomplicatedMontelukast (Singulair) 10 mg tablet Lrjbzr99QBTEEubim at kcwthei909Xzddpqv 2024 4:11amSevere persistent asthma Severe persistent asthma, uncomplicatedComplies with drug therapyNystatin 100,000 unit/gram tpzgdAmmydz5OXLLYYIVCMWHMWwotd daily as needed for zseq409 September 15, 2025 12:00amCandidiasis Candidiasis, unspecifiedComplies with drug therapyPotassium Chloride 20 mEq tablet extended ssvkvluHeuklv57OZUKZCdvxi200Paqbmkvc 2024 1:12pmHypokalemia Hypokalemiatake with foodComplies with drug therapySpironolacton- Hydrochlorothiaz 0 dllgtnYyyzeemgeaea1LVDPEDrudsItmaseve 2016 12:00am December 08, 2022 7:04amHydrochlorothiazide 25 mg xvowdaRfhnbwivtfmz36GAVFKdjnw December 08, 2022 12:00amMa2023 9:41plRblkzhlnlft-Jdqfoatlf-Mniruopn (Trelegy Ellipta) 200-62.5-25 mcg blister with abdlmfXlrfczkaouoc5YPXNWOIIUQQMG As DirectedFebruary 2022 12:00amMay 2023 9:40amPotassium 99 mg Tablet Ytogkjfwhhnz74KARUXlqko dailyFebruary 2022 12:00amMay 2023 9:41am Magnesium 200 mg PdnkzuAcvbnvzahbjk371OSCTWulpnBzvlgcaw 2022 12:00amMay 2023 9:34amAlbuterol Sulfate 90 mcg/actuation Hfa Aerosol Inhaler Tdwdmisewqio6XFESQSQRQTWXUHIUIMZ 4-6 HOURS as needed for Shortness Of Breath Or WheezingAugust 2016 11:00pmMay 2023 9:40amIpratropium [place] (Atrovent Hfa) 17 mcg/actuation Hfa Aerosol QyuthtmYrwrlforfeet0GEMIKNFSOEMWCO Twice dailyAugust 2016 11:pmMarch 14, 2024 9:40amCyclobenzaprine 10 mg PwrsgyRsodtqrydllz89NQVFDnwmbQlxalp 2016 11:00pmMay 2023 9:40am Clonazepam 0.5 mg TabletDiscontinued0.5MGPODailyAugust 2016 11:00pmMay 2023 9:40amLisinopril 40 mg TabletDiscontinued0.5TABPOTwice dailyAugust 2016 11:00pmFebruary 2022 7:04amTrazodone 50 mg VkvkdbBwttbcsmymks16 MGPOBedtimeAugust 2016 11:00pmMay 2023 9:38amFamotidine (Pepcid) 40 mg YzwdevQfwcennsvsdl24ZWBRNmvzwydKhidpf 2016 11:00pmFebruary 2022 7:02amAmlodipine (Norvasc) 2.5 mg TabletDiscontinued2.5MGPOTwice dailyAugust 2016 11:00pmMay 2023 9:40amParoxetine Hcl (Paxil) 20 mg Tablet Vchlzlvciebh80WWIVQuymfCehadb 2016 11:00pmMay 2023 9:39amLoratadine 10 mg WzjdhaTqsxxigtjepd49BORNFwtaiLbltqw 2016 11:00pmMay 2023 9:41am Omeprazole 20 mg Tablet,Delayed Release (Dr/Ec)Eedxsrtlnpdv48SABSEsrftGxmzro 2016 11:00pmMay 2023 9:41amLatanoprost 0.005 % btrunHnhgcq1LNPMT EYE-BOTHDaily at bedtimeOctober 2023 11:00pmComplies with drug therapy Albuterol Sulfate 2.5 mg /3 mL (0.083 %) solution for nebulizationActive2.5MG CNTNEBULIZ2-4 TIMES PER DAY as needed for shortness of breath or wheezingOctober 2023 11:00pmComplies with drug therapySodium Chloride 0.9 % solution for nebulizationActiveMLINHALATIONOctober 2023 11:00pmComplies with drug xruwkiaIzprysavsft-Ynjockdxe-Swgdgwfc (Trelegy Ellipta) 200-62.5-25 mcg blister with bzsmqiIellklzmruxm8ZEWEQTYIXOGJVWxwwjCcd 2023 11:00pmSeptember 2024 5:56amMagnesium Oxide 400 mg magnesium hghqxgOopjciiozosz178RTKJLldtlAzg 2023 11:00pmJune 2023 6:18amSolifenacin 10 mg xcqrqgRgtwxppquxkj03YEBY DailyMay 2023 11:00pmSeptember 2024 6:01amCholecalciferol (Vitamin D3) 25 mcg (1,000 unit) uenzpnhXsmlis73PSDSOLnxsmIev 2023 11:00pmComplies with drug therapyFerrous Sulfate 325 mg (65 mg iron) smfjqiSevvii253ITJZWzzvl 48 hoursMay 2023 11:00pmComplies with drug therapyPramipexole 0.25 mg tablet Active0.25MGPODaily at bedtimeMay 2023 11:00pmComplies with drug therapy Pregabalin 75 mg ezsekkhRpdxbaqffhzx01DIDHImrcs dailyMarch 13, 2024 11:00pm August 26, 2025 8:20amOmeprazole 20 mg capsule,delayed release(DR/EC) Yuqyrjlnfxjn87TPQXFeylr dailyMarch 13, 2024 11:00pmOct2024 9:58am Montelukast (Singulair) 10 mg ggcxgaHnhozfkpwyry30EZTDSffpvDbt 8th, 2024 11:00pm August 29, 2025 4:11amTrazodone 100 mg xwgfoqKkxaejgoxhty217FTCTEynnq at bedtimeMa2023 11:00pmSept2024 6:00amParoxetine Hcl 30 mg olmvwoEifoqsugqqnx39DXOCRswtxQdk 8th, 2024 11:00pmSept2024 5:59am Baclofen 10 mg vsjvkvYaxpax58TODUPdlqn times dailyMarch 13, 2024 11:00pmComplies with drug therapyAlbuterol Sulfate 90 mcg/actuation HFA aerosol inhalerActive2 PUFFINHALATIONEvery 4 hours as needed for shortness of breath or wheezingMarch 13, 2024 11:00pmComplies with drug therapyMirabegron (Myrbetriq) 25 mg tablet extended release 24 tjHmbisi66KAQEBkdxEhypclbm 18th, 2025 12:00amComplies with drug therapyOxygen unitActive0.ROUTEOctober 23, 2025 12:00amAs directed Azithromycin 250 mg wtzlnsWaoaqv660URNZ.w-f-v91883KstxmmmvOctober 23, 2025 12:00am Take 1 tab every Monday, Monday, MondayComplies with drug therapyParoxetine Hcl (Paxil) 40 mg adhcczDkqhrp19QUHYEridsGmpsksicb 10th, 2025 11:00pmComplies with drug therapyBupropion Hcl (Wellbutrin Xl) 150 mg tablet extended release 24 xcYfarravjdxqa992XSIRJmqrd morningJuly 16, 2025 11:00pmOctober 2024 9:43amTrospium 60 mg capsule,extended release 85veOpnebwqluvft68FZOHXamzj July 16, 2025 11:00pmOctober 23, 2025 10:11ammust be taken on empty stomach at least 1 hour before a meal/food with water onlyGuaifenesin (Mucinex) 600 mg tablet extended release 99hpOabjnq266MTANOwedw 12 hours as needed July 16, 2025 11:00pmComplies with drug therapy Mvobsogysn-Ggdtmhpe-Swfpevnxkz (Breztri Aerosphere) 160-9-4.8 mcg/actuation HFA aerosol vfvyqpzUvsldv4WDTJAUGOQNCBHZetzv dailyJuly 16, 2025 11:00pm Complies with drug therapyEnsifentrine (Ohtuvayre) 3 mg/2.5 mL suspension for knaqogzrnphuMxnrxp3PDJHEMLVNUCIKjiup dailyJuly 16, 2025 11:00pmComplies with drug therapyTrazodone 100 mg zcthocLwsaoh325KPRBMemfm at bedtime as needed July 16, 2025 11:00pmComplies with drug therapyFluticasone Propionate (Flonase Allergy Relief) 50 mcg/actuation spray,zgcmbgnazuUepeae1UUVLHYCYFTCIHRO DailyJuly 31, 2025 11:00pmadminister into each nostrilComplies with drug therapyOndansetron 4 mg tablet,enmobqyfhzjpdpMiiijxmcircb9WQDSHprpm 8 hours as needed for nausea and ozbwpsxh442Xrmpaviw2024 12:00amDece2024 10:11amNausea and vomiting Nausea with vomiting, unspecifiedDoxycycline Hyclate 100 mg capsuleDiscontinued 100MGPOTwice uuyrn163Mygoeusy2024 12:00amDece2024 10:11amAcute exacerbation of chronic obstructive pulmonary disease Chronic obstructive pulmonary disease with (acute) exacerbation Immunizations Immunization Event Date Not Given Reason Dose Number [employer] Lot Number Reason(s) Given Vaccine Information Statement (VIS) Detail Administration Location influenza, unspecified formulation August 09, 2017 Relevant Diagnostic Tests and/or Laboratory Data Laboratory Results Test Collection Date/Time Result Date/Time Result Interpretation Reference Range Result Comment Performing Site Anion Gap August 04, 2025 8:40am August 04 8:40am 15.9 Anion GapOctalbert b. [facility]ler hospital 2024 12:53pmOctalbert b. [facility] hospital 2024 12:53pm11.3SARS-CoV-2 Ag (CV2AG)September 14, 2025 11:40amNove2024 11:40amPOSITIVEAbnormal (applies to non-numeric results)NEGATIVEThis test has not been FDA cleared [...] of the declaration thatcircumstances exist justifying the authoriz ation ofemergency use of in vitro diagnostic tests for detectionand/or diagnosis of Covid-19 under section 564(b)(1) of theAct, 21 U.S.C. 360bbb-3(b)(1), unless the declaration isterminated or authorization is revoked sooner.Bedside Influenza Type A AntigenSeptember 14, 2025 11:40amNove2024 11:40am NegativeNegative for Flu A protein antigen. Infection due to Flu Acannot be ruled out. Flu A antigen in thesample may bebelow the detection limit of the test.Troponin I High SensitivitySeptember 14, 2025 11:45amNove2024 11:45am20.5 pg/mL4.0-51.3CUT-OFF POINTS HAVE [...] DIAGNOSTIC AND CLINICAL INFORMATION.Anion GapSeptember 14, 2025 11:45am September 14, 2025 11:45am12.7Basophils # (Auto)September 14, 2025 11:45am September 14, 2025 11:45am0.0 10 3/uL0.0-0.1Anion GapSeptember 26, 2025 1:09pm September 26, 2025 1:09pm15.7BUN/Creatinine RatioSept2024 8:40am August 04, 2025 8:40am5.2BUN/Creatinine RatioOctober 2024 12:53pm September 03, 2025 12:53pm8.3Bedside Influenza Type B AntigenNov2024 11:40amNovember 2024 11:40amNegativeNegative for Flu B protein antigen. Infection due to Flu Bcannot be ruled out. Flu B antigen in thesample may bebelow the detection limit of the test.Albumin/Globulin RatioNovemb2024 11:45amNovember 2024 11:45am0.7Basophils (%) (Auto)September 14, 2025 11:45amNovember 2024 11:45am0.6 %0.2-2.0BUN/Creatinine RatioNove2024 1:09pmSeptember 26, 2025 1:09pm13.1Blood Urea NitrogenSept2024 8:40amSept2024 8:40am6.0 mg/dLBelow low normal7.0-18.0Blood Urea NitrogenOct2024 12:53pmOctober 2024 12:53pm9.0 mg/dL7.0-18.0 AlbuminNov2024 11:45amNovember 2024 11:45am2.9 g/dLBelow low normal3.4-5.0Eosinophils # (Auto)September 14, 2025 11:45amNovember 2024 11:45am0.1 10 3/uL0.0-0.7Blood Urea NitrogenNov2024 1:09pmSeptember 26, 2025 1:09pm16.0 mg/dL7.0-18.0Calcium LevelSept2024 8:40am August 04, 2025 8:40am8.6 mg/dL8.5-10.1Calcium LevelOctober 2024 12:53pmOctober 2024 12:53pm8.8 mg/dL8.5-10.1Alkaline PhosphataseNov2024 11:45amNovember 2024 11:45am92 U/R02-996Gvstzozdzkb (%) (Auto) September 14, 2025 11:45amNovember 2024 11:45am1.4 %0.9-7.0Calcium Level September 26, 2025 1:09pmNov2024 1:09pm8.8 mg/dL8.5-10.1Chloride LevelSept2024 8:40amSept2024 8:00fe899 mmol/L98-107 Chloride LevelOct2024 12:53pmOctalbert b. chandler hospital 2024 12:65oj820 mmol/L 98-107Alanine Aminotransferase (ALT/SGPT)September 14, 2025 11:45amNove2024 11:45am21 U/Q21-41JsbdbreugrSvgnggzx 9th, 2025 11:45amNove2024 11:45am40.3 %36.0-48.0Chloride LevelNov2024 1:09pmSeptember 26, 2025 1:70hr790 mmol/H79-963Ytqhka Dioxide LevelSept2024 8:40am August 04, 2025 8:40am25.4 mmol/L21.0-32.0Carbon Dioxide LevelOctalbert b. chandler hospital 2024 12:53pmOct2024 12:53pm26.5 mmol/L21.0-32.0Aspartate Amino Transf (AST/SGOT)September 14, 2025 11:45amNovember 2024 11:45am25 U/L15-37 HemoglobinNov2024 11:45amNovemb2024 11:45am13.0 g/dL12.0-16.0 Carbon Dioxide LevelNov2024 1:09pmNov2024 1:09pm23.1 mmol/L21.0-32.0CreatinineSept2024 8:40amSeptember 2024 8:40am 1.15 mg/dLAbove high normal0.55-1.02CreatinineOct2024 12:53pmOctober 2024 12:53pm1.08 mg/dLAbove high normal0.55-1.02BUN/Creatinine Ratio September 14, 2025 11:45amNovember 2024 11:45am7.0Immature Granulocyte # (Auto)September 14, 2025 11:45amNovember 2024 11:45am0.06 10 3/uLAbove high normal0.00-0.03CreatinineSeptember 26, 2025 1:09pmNov2024 1:09pm 1.22 mg/dLAbove high normal0.55-1.02Estimated GFR ()August 04, 2025 8:40amSept2024 8:83nt00Mjhdt low normal>=60 mL/min/1.73m 2Estimated GFR ()September 03, 2025 12:53pmOct2024 12:53pm>60>=60 mL/min/1.73m 2Blood Urea NitrogenSeptember 14, 2025 11:45am September 14, 2025 11:45am8.0 mg/dL7.0-18.0Immature Granulocyte % (Auto)September 14, 2025 11:45amNovember 2024 11:45am0.9 %Above high normal0.0-0.5 Estimated GFR ()September 26, 2025 1:09pmSeptember 26, 2025 1:02dx85Yarey low normal>=60 mL/min/1.73m 2Estimated GFR (Non- August 04, 2025 8:40amSept2024 8:62pb58Msurs low normal>=60 mL/min/1.73m 2Estimated GFR (Non- AmericanOct2024 12:53pm September 03, 2025 12:49km36Szktl low normal>=60 mL/min/1.73m 2Calcium Level September 14, 2025 11:45amNovember 2024 11:45am8.1 mg/dLBelow low normal 8.5-10.1Lymphocytes # (Auto)September 14, 2025 11:45amNovember 2024 11:45am 1.8 10 3/uL1.2-3.8Estimated GFR (Non- AmericanSeptember 26, 2025 1:09pm September 26, 2025 1:15eh17Okgby low normal>=60 mL/min/1.73m 2Glucose Level August 04, 2025 8:40amSeptember 2024 8:61jt297 mg/dLAbove high normal 74-106Glucose LevelOct2024 12:53pmOct2024 12:53pm96 mg/dL 74-106Chloride LevelNov2024 11:45amNovemb2024 11:08zd858 mmol/LAbove high zejduo46-480Eeqaqbztwwj (%) (Auto)September 14, 2025 11:45am September 14, 2025 11:45am27.1 %20.5-60.0Glucose LevelNov2024 1:09pm September 26, 2025 1:09pm90 mg/xK07-871Iebjaizgh LevelSept2024 8:40amSeptember 2024 8:40am3.3 mmol/LBelow low normal3.5-5.1Potassium LevelOct2024 12:53pmOctober 2024 12:53pm3.8 mmol/L3.5-5.1Carbon Dioxide LevelNovember 2024 11:45amNovember 2024 11:45am25.8 mmol/L 21.0-32.0Mean Corpuscular HemoglobinNov2024 11:45amNovember 2024 11:45am29.7 pg26.7-34.0Potassium LevelNov2024 1:09pmNov2024 1:09pm3.8 mmol/L3.5-5.1Sodium LevelSeptember 2024 8:40amSeptember 2024 8:26je937 mmol/S026-498Jvzizk LevelOctober 2024 12:53pmOctober 2024 12:09xx886 mmol/O380-181KmnsknyaweZhtblqtw 2024 11:45amNovember 2024 11:45am1.14 mg/dLAbove high normal0.55-1.02Mean Corpuscular Hemoglobin ConcentNovember 2024 11:45amNovember 2024 11:45am32.3 g/dL29.9-35.2 Sodium LevelNovember 2024 1:09pmNovember 2024 1:02si534 mmol/L 136-145Estimated GFR ()September 14, 2025 11:45amNovember 2024 11:39ig88Zqqpn low normal>=60 mL/min/1.73m 2Mean Corpuscular VolumeNovember 2024 11:45amNovember 2024 11:45am92.0 fL81.0-99.0Estimated GFR (Non- AmericanNovember 2024 11:45amNovember 2024 11:98xb89Mfmre low normal>=60 mL/min/1.73m 2Monocytes # (Auto)September 14, 2025 11:45amNovember 2024 11:45am0.6 10 3/uL0.3-0.8GlobulinNov2024 11:45amNovember 2024 11:45am4.2 g/dLMonocytes (%) (Auto)September 14, 2025 11:45amNovember 2024 11:45am8.6 %1.7-12.0Glucose LevelNovember 2024 11:45amNovember 2024 11:19op991 mg/dLAbove high ijnfme58-370Ltke Platelet VolumeNovember 2024 11:45amNovember 2024 11:45am9.1 fLBelow low normal9.5-13.5 Potassium LevelSeptember 14, 2025 11:45amNovember 2024 11:45am3.5 mmol/L 3.5-5.1Neutrophils # (Auto)September 14, 2025 11:45amNovember 2024 11:45am 4.1 10 3/uL1.4-6.5Sodium LevelSeptember 14, 2025 11:45amNovember 2024 11:26ts419 mmol/G504-964Lodzbyrrpvb (%) (Auto)September 14, 2025 11:45amNovember 2024 11:45am61.4 %43.0-75.0Total BilirubinSeptember 14, 2025 11:45am September 14, 2025 11:45am0.1 mg/dLBelow low normal0.2-1.0Platelet CountSeptember 14, 2025 11:45amNovember 2024 11:04sh013 10 3/kU784-060Afvxf Protein September 14, 2025 11:45amNovember 2024 11:45am7.1 g/dL6.4-8.2Red Blood CountSeptember 14, 2025 11:45amNovember 2024 11:45am4.38 10 6/uL4.20-5.40 Red Cell Distribution WidthSeptember 14, 2025 11:45amNovember 2024 11:45am 13.6 %11.0-15.0Corrected White Blood CountSeptember 14, 2025 11:45amNovember 2024 11:45am6.7 10 3/uL4.0-11.0 Vital Signs Vital Reading Result Reference Range Collection Date/Time Height 64 [in_i] August 04, 2025 9:49pzUgehsb972.87 kgSept2024 9:11amBody Svoalekvlgu14.8 [degF]97.6-99.0Sept2024 9:11amHeart Rate93 /min 60-100Sept2024 9:11amRespiratory rate18 /dqd15-99Ifyhqvmvl 2024 9:11amOxygen saturation by Pulse hohunoeg94 %95-100September 2024 9:11amBP Qfenpdik180 mm[Hg]100-140September 2024 9:11amBP Kkpvjjkhq02 mm[Hg]60-100September 2024 9:11amBMI (Body Mass Index)39.3 kg/k1Jhtkavyyf 2024 9:11amInhaled oxygen flow rate3 L/minSeptember 2024 9:11am Esjmkz50 [in_i]August 18, 2025 7:69vzSsvfnz027.38 kgOctal[facility] 2024 7:50am Body Wnelpnlkkeh73.1 [degF]97.6-99.0[facility] 2024 7:50amHeart Rate82 /min 60-100Octal[facility]. [facility] 2024 7:50amRespiratory rate20 /pgy93-88Chlbmkc 2024 7:50amOxygen saturation by Pulse frndburc16 %95-100Octal[facility]. [facility] 2024 7:50amBP Awcefmmv462 mm[Hg]100-140Octal[facility]. [facility] 2024 7:50amBP Fuvziudyw86 mm[Hg]60-100 August 18, 2025 7:50amBMI (Body Mass Index)39.4 kg/u3Saegcpg 2024 7:50amInhaled oxygen flow rate3 L/minChildren[facility] 20[facility] 7:77dpLoyhcd78 [in_i] September 23, 2025 11:25hrUyytud463.04 [facility] 20[facility] 11:23amBody Smvlkceihwo46.2 [degF]97.6-99.0[facility] 2024 11:23amHeart Rate71 /min 60-100Novb[facility] 2024 11:23amRespiratory rate14 /dxs30-21Upwwcvgu 2024 11:23amOxygen saturation by Pulse %95-100Novb[facility] payson [facility] 2024 11:23am BP Bntxrdkl171 mm[Hg]100-140November 2024 11:23amBP Hdnzxueey74 mm[Hg] 60-100Novbanner payson [facility] 2024 11:23amBMI (Body Mass Index)40.5 kg/s0Cnvxujqi 2024 11:09nwJqwnvz76 [in_i]October 08, 2025 2:58xnNremxu61.05 kgDecember 2024 2:34pmBody Nzwgbbdffft55.8 [degF]97.6-99.0Decemb2024 2:34pmHeart Rate75 /mur61-068Cqyvibxh 2024 2:34pmRespiratory rate20 /tqf09-27Jscrsrua 3rd, 2025 2:34pmOxygen saturation by Pulse pdskvwso54 %95-100December 2024 2:34pmBP Zloyusme328 mm[Hg]100-140December 2024 2:34pmBP Qpaskswar91 mm[Hg] 60-100December 2024 2:34pmBMI (Body Mass Index)37.5 kg/a1Wakkmypd2024 2:52noPkfour77 [in_i]October 23, 2025 10:60hzUuajqh513.47 kgDecember 2024 10:05amHeart Rate67 /wgy34-673Tqgjzjss 2024 10:05amRespiratory rate20 /rbn15-34Bxyzvrlc 2024 10:05amOxygen saturation by Pulse % 95-100December 2024 10:05amBP Akkotosl881 mm[Hg]100-140December 2024 10:05amBP Hekrmyhcc09 mm[Hg]60-100December 2024 10:05amBMI (Body Mass Index)38.0 kg/g4Pymqxhpe 2024 10:05amInhaled oxygen flow rate3 L/min October 23, 2025 10:05am Advance Directives Advance Directive Response Recorded Date/ Time Advance Directives Yes July 9:36am Insurance Providers Guarantor Diana Champion Address [address] [place] [address]Sguelaa Info.Home Phone: Coverage Status Update:2025 Payer Group Member ID Coverage Type Subscriber Relationship to Subscriber Effective Date Expiration Date Medicaid [id number] A Champion Id: [id number] [address] [place] [address] Home Phone: Email: [email or web address] Community Medical Servicesedicare [id number] A Champion Id: [id number] [address] [place] [address] Home Phone: Email: [email or web address] PFFS [id number] A Champion Id: [id number] [address] [place] [address] Home Phone: Email: [email or web address]@[email or web address] [id number] A Champion Id: [id number] [address] [place] [address] Home Phone: Email: [email or web address]@[email or web address] Id: [id number] A Champion Id: [id number] [address] [place] [address] Home Phone: Email: [email or web address]/HFA/FAP Active 100% [address] [place] [address] Work Phone: [phone] [id number] A Champion Id: [id number] [address] [place] [address] Home Phone: Email: [email or web address] Highlands HealthcarefJu 2022Self Pay [id number] 2022 Encounters Encounter Location(s) Arrival/Admit Date Discharge/Departure Date Discharge/Departure Disposition Provider(s) Admitted Inpatient -3 April 26, 2004 7:04am MICHAEL GÓMEZ MDAdmitted Inpatient-3 [facility] 2003 7:08amSUVALDO GÓMEZ , MEYeparted Physician/Provider Office Visit-[facility] [place] August 04, 2025 10:02amSeptember 2024 10:41amDischarged to home care or self care (routine discharge)Kaylene López NP-TYLEReparted Physician/Provider Office Visit-[facility] ClydeOctal[facility] 2024 8:39amOctober 2024 9:23amDischarged to home care or self care (routine discharge)EDEN Sextonon-patient / Gml-igkzy-Lsdvr [employer]October 2024 1:53pmEDEN Sextonon-patient / Guj-sgweh-Kieik [employer] CoNovemb 2024 11:45amKaylene López NP-TYLEReparted Physician/Provider Office Visit-[facility]Noar[facility] 2024 11:13amNovember 2024 11:52amDischarged to home care or self care (routine discharge)Li Sexton-patient / Ymn-jzalv-Gynbf [facility]Novewestern [facility] 2024 1:09pmTED Sextoneparted Physician/Provider Office Visit-[facility] 2024 2:05pmDecember 2024 2:56pmDischarged to home care or self care (routine discharge)TED Sextoneparted Physician/Provider Office Visit-[facility] PulmonaryMscewestern arizona [facility] 2024 10:00amDecember 2024 10:50amDischarged to home care or self care (routine discharge)Jenelle Michelle MD Recent Diagnosis Onset Date Admit Date Bilateral lower extremity edema Unknown August 04, [...] 18, 2025 8:39am Encounter for subsequent maeve [facility] wellness visit (AWV) in Medicare patient Unknown [...] September 23, 2025 11:13am Asthma Unknown October 08 2:05pm Bilateral lower extremity edema Unknown October 08, 2025 2:05pm Chronic GERD without esophagitis Unknown October 08, 2025 2:05pm Chronic respiratory failure with hypoxia Unknown October 08, 2025 2:05pm COPD exacerbation Unknown October 08, 2025 2:05pm COVID-19 Unknown October 08 2:05pm Morbid obesity due to excess calories Unknown October 08, 2025 2:05pm Nausea & vomiting Unknown October 08, 2025 2:05pm Assessments Diagnosis Onset Date Resolution Status Admit Date Bilateral lower extremity edema acuteSeptember 2024 10:02amChronic GERD without esophagitisacuteSeptember 2024 10:02amChronic respiratory failure with hypoxiaacuteSept2024 10:02amCOPD (chronic obstructive pulmonary disease)acuteSeptember 2024 10:02amDiarrheaacuteSeptember 2024 10:02amMorbid obesity due to excess caloriesacuteSeptember 2024 10:02amNauseaacuteSeptember 2024 10:02amStage 3 chronic kidney diseaseacuteSeptember 2024 10:02amChronic respiratory failure with hypoxiaacuteOctober 2024 8:39amEncounter for subsequent annual wellness visit (AWV) in Medicare patientacuteOctober 2024 8:39amMorbid obesity due to excess caloriesacuteOctober 2024 8:39am AsthmaacuteNovember 2024 11:13amChronic respiratory failure with hypoxia acuteNovember 2024 11:13amCOPD exacerbationacuteNovember 2024 11:13amCOVID-19acuteNovember 2024 11:13amMorbid obesity due to excess caloriesacuteNovember 2024 11:13amNausea & vomitingacuteNovember 2024 11:13amAsthmaacuteDecember 2024 2:05pmBilateral lower extremity edema acuteDecember 2024 2:05pmChronic GERD without esophagitisacuteDecember 2024 2:05pmChronic respiratory failure with hypoxiaacuteDecember 2024 2:05pmCOPD exacerbationacuteDecember 2024 2:05pmCOVID-19acuteDecember 2024 2:05pmMorbid obesity due to excess caloriesacuteDecember 2024 2:05pm Nausea & vomitingacuteDecember 2024 2:05pm Plan of Treatment Author Kaylene López [facility] HospitalAuthoredSeptember 2024 9:48amcontinue oxygen, inhalers as well. has appt with [facility] pulmonology in 10/30 continue with inhalers Recommendations: [...] as well as elyte abnormals Author Kaylene [facility] HospitalhoredOctal[facility]. [facility] 2024 8:22amReviewed Ht/Wt/BMI Recommend eye exams yearly [...] covid, flu and pneumonia vaccine Author Kaylene [facility] HospitalredNov[facility] 2024 12:52pmDiscussed with patient their BMI (actual [...] add zofran check chem 8 Author Kaylene [facility] HospitalhoredDecember 2024 3:09pmrecent ER visit dx with COVID on 09/15/25 reviewed notes from ER visit, EKG, and labs feeling much better back to baseline resp status resolved wears oxygen, has appt w pulmonary at [...] sugary drinks, as well as alcohol consumption. stable, no changes in meds Recommendations: freq small meals, nothing to eat or drink at least 2 hours prior to bed, limit caffeine, alcohol, as well as spicy foods. Meds to limit or avoid if possible: NSAIDS Elevate the HOB if possible current meds: PPI Future Tests Future scheduled test information is unavailable Pending Tests Test Name Ordered Date Scheduled Date Comprehensive Metabolic Panel August 04 9:34am Future Visits Future appointment information is unavailable Future Procedures Procedure Name Ordered Date Scheduled Date Complete Pulmonary Function October 23, 2025 10:48am 3 Months Dipstick and Microscopic August 04, 2025 9: 34am Urine CultureSept2024 9:34amMagnesiumSeptember 2024 9:34am Basic Metabolic PanelOctober 2024 8:22amBasic Metabolic PanelNov2024 11:49am Future Medications Future medication information is unavailable Patient Instructions Patient instructions are unavailable
--- OUTSIDE RECORDS SUMMARY | 2025-10-27 08:00 | XMS_ITS | Clinical Summary ---
Author Organization [facility] Address [address] [place] [address] Care Team Providers Care Magento Web Developer Name Role Phone Kaylene óLpez MD Primary Care Provider [phone] Allergies Active AllergyReactionsCriticalityNoted DateCommentsFentanylOtherMedium 07/07/2017 Other Reaction(s): [...] 1 tablet by mouth in the morning.Active mwtpzbcjeme-ljvbdxyhl-uxzblxzr 100-62.5-25 mcg blister with device Active guaiFENesin [...] MOUTH IN THE MORNING AND 1 AT TLPUYVU5805/06/2024ctive traMADol (Ultram) 50 mg tablet Take 50 [...] INSTILL 1 DROP INTO EACH EYE AT FGNYAFD3606/18/2024ctive ofloxacin (Ocuflox) 0.3 % ophthalmic solution 07/10/2024ctive [...] at bedtime.Active Active Problems ProblemNoted DateDiagnosed DateMixed jzuoadyobnmh48/27/2025Primary HSV infection of mouth11/12/2024Neoplasm of uncertain behavior of chest wall10/07/2024History of colon bbrncr0905/13/2024neumonia due to infectious eonxjfhp20/11/2024 Overview (05/13/2024): Last Assessment & Plan: Finish [...] CKD. Check BMP. Chronic respiratory failure with xqpmski5512/28/2023 Overview (05/13/2024): Last Assessment & Plan: On 3 L O2 via NC now. She was previously on 2 L She is doing well currently and stated that this is the best she has felt since she had COVID over a year ago. Mwrslengoejt64/22/2024 Overview (05/13/2024): Last Assessment & Plan: WBC [...] to ED if she experiences worsening SOB. Dtdihtjzyrswz05/30/0990Uswnwol33/30/2024Spinal stenosis, lumbar region without neurogenic kfquzbuubxbx22/30/2024Status post total right knee replacement 12/05/2023Medicare annual wellness visit, jwayqiohgr31/01/2024 Overview (05/13/2024): Last Assessment & Plan: Here for Medicare Wellness. Screened for depression, cognitive impairment, fall risk Ordered cologuard for the patient. Mammogram not due. Will order next appt. Urarqtxqf83/29/2023t moderate risk for fall10/04/2023hronic back pain greater than 3 months zwrddkiu63/29/2023hronic heart failure with preserved ejection npyzwllk08/29/2023hronic kidney disease, stage III (moderate)10/04/2023hronic low back pain without ozkjxbqs03/29/2023 Overview (05/13/2024): Last Assessment & Plan: Chronic [...] on the etiology of her pain Colorectal jjjscx4010/04/20231631Olaenhczpc68/29/2023 Overview (05/13/2024): Last Assessment & Plan: Patient currently on Trazodone and Paxil. Reports depressed mood, anhedonia, poor sleep. Increase Paxil to 30 mg. Trazodone to 100 mg. Patient counseled and educated on adverse effects, drug interactions and to reach out to office/pharmacy if questions or concerns related to new medications. Iron deficiency zwipvo6310/04/2023Moderate persistent asthma with exacerbation 10/04/2023 Overview (05/13/2024): [...] finished her oral abx prescribed by her research compliance specialist. Continues to have bronchospasm, wheezing, chest tightness and will benefit from continuing pulse steroid taper as outpatient. Patient educated to go to ED if worsening SOB, hypoxia and no improvementwith prednisone. C/w albuterol q4. At high risk of poor outcome. Non-recurrent acute suppurative otitis media of both ears without spontaneous rupture of tympanic bbilhvzbf48/29/2023 Overview (05/13/2024): Last Assessment & Plan: B/l otitis media noted on exam. Will call in oral Augmentin for patient. Positive depression zzpesiuwu52/29/2023ost-lrkulcxtmh03/29/2023Restless leg wlempxrw77/29/2023Urge mgmrxajcibjy79/29/2023Vitamin D ipavubamsj96/29/2023 Malignant neoplasm of rectosigmoid /29/2023Morbid (severe) obesity due to excess wbejtwst41/29/2023ody mass index (BMI) 40.0-44.9, adult05/08/2023 05/08/2023ritical illness skocwvvd64History of COVID-19 /01/2023Other secondary pulmonary Primary osteoarthritis of right hip03/26/2023Electrocardiogram abnormal 08/23/2022Disc displacement, oosukt7803/26/2019 Overview (03/23/2023): Added automatically from request for surgery [id number] Arthritis of right knee10/17/2018Lumbar lddbqiwwzpu19/17/2018 Overview (03/23/2023): Added automatically from request for surgery [id number] Disorder of msjgdy9201/15/2018 Overview (03/23/2023): Added automatically from request for surgery [id number] Caqwnc3704/01/2014Chest pain04/01/2014Chronic obstructive lung tbluage0104/01/2014 Chronic roxoswkzt16/27/9373Lswydav36/27/2758Uqgke58/27/2014Essential vprlngvzulfe44/27/2014Gastroesophageal reflux yjqwhkd7904/01/2014Hyperlipidemia 04/01/2014Type 2 diabetes mellitus without ydzzoifbezga51 Overview (05/08/2023): Removal Reason: Patient states no [...] file07/11/2024Sexually AbusedNot on file07/11/2024HQ-2AnswerDate RecordedPatient Health Questionnaire-2 Uqvzq486/12/2024UT Safety & Environment AnswerDate RecordedFear of Current or Ex-PartnerNot on file12/28/2023Emotionally AbusedNot on file12/28/2023hysically AbusedNot on file12/28/2023Sexually Abused Not on file12/28/2023hysically or Sexually AbusedNot on file12/28/2023 CommentsUnknownSex and Gender InformationValueDate RecordedSex Assigned at Not on fileLegal SweTslres24/29/2022 10:32 PM EDTGender IdentityNot on file Sexual OrientationNot on file Last Filed Vital Signs Vital SignReadingTime TakenCommentsBlood Mbmmlrdv374/7401/23/2025 12:03 PM EDT Vwsuz489101/23/2025 12:03 PM VQGFurvszfhmaq37.4 ??C (97.5 ??F)07/02/2024 8:11 AM EDTRespiratory Szqm307107/02/2024 12:20 PM EDTOxygen Hkrmedxgme74%01/23/2025 12:03 PM EDTon 3L X1Nsxavpu Oxygen Concentration--Ipopfu947 kg (236 lb)01/23/2025 12:03 PM EDTper tcsvzdjSamakm719.6 cm (5' 4 )01/23/2025 12:03 PM EDTBody Mass Index40.51001/23/2025 12:03 PM EDT Plan of Treatment Health MaintenanceDue DateLast DoneCommentsCT Izqsfpsjepyy1956olonoscopy 1956olorectal Cancer Fgbmvtnua1956Diabetes: Hemoglobin A1C 1956FIT-DNA1956FIT1956FOBT1956Medicare Annual Wellness (AWV)08/03/19567662Imjswioijggjz1956Diabetes: Retinopathy Gkxmmkruy32/28/1966 Depression Ncqmitxbe99/28/1968Diabetes: Urine Protein Gzizzxlcx67/28/1975Adult Uzyqdsh7008/03/19785927Rvairixjg83/28/1996Fall Risk Bvtvhssqh92/28/2021OVID-19 Vaccine ( season), 08/26/2023, 08/04/2022, Additional history existsInfluenza Vaccine (#1)5111/06/2023, 08/26/2023, 08/04/2022, Additional history existsZoster LiszgojeMfygnwepe14/27/2022, 2Pneumococcal Vaccine: 50+ XpmahGphffrjwg07/04/2023, 10/19/2018HIB VaccinesAged OutNo longer eligible based on patient's age to complete this topic HPV VaccinesAged OutNo longer eligible based on patient's age to complete this topicIPV VaccinesAged OutNo longer eligible based on patient's age to complete this topicMeningococcal B VaccineAged OutNo longer eligible based on patient's age to complete this topicMeningococcal VaccineAged OutNo longer eligible based on patient's age to complete this topicRotavirus VaccinesAged OutNo longer eligible based on patient's age to complete this topic Insurance Care Teams Team MemberRelationshipSpecialtyStart DateEnd Date Kaylene López MD [address] [place] [address] PCP - GeneralNurse Practitioner01/22/25
--- OUTSIDE RECORDS SUMMARY | 2025-10-27 08:00 | XMS_ITS | Clinical Summary ---
Author Organization [facility] Address [facility] [place] [address] Care Team Providers Care Costume Mistress Name Role Phone Unavailable Primary Care Provider [...] (SINGULAIR) 10 mg tablet montelukast 10 mg vyjpat4706/24/2019Active therapeutic multivitamin-minerals (THERA-M PLUS) 9 mg iron-400 [...] number is lower riskNot on file1Data from: https://www.neighborhoodatlas.medicine.[facility].edu/. Last address used for calculationNot on file1CommentsNoSex and Gender Information ValueDate RecordedSex Assigned at BirthNot on fileLegal CtpPnsrwz23/15/2017 10:53 AM ESTGender IdentityNot on fileSexual OrientationNot on file Last Filed Vital Signs Vital SignReadingTime TakenCommentsBlood Oqhxdtyg441/7609/23/2020 2:26 PM EST Isect350609/23/2020 2:26 PM FYSJzguqabubse61.4 ??C (97.5 ??F)09/23/2020 2:26 PM ESTRespiratory Jdow165911/23/2019 2:26 PM ESTOxygen Qggcxyhvuj90%09/23/2020 2:26 PM ESTInhaled Oxygen Concentration--Plvcfg237.1 kg (225 lb)09/23/2020 2:26 PM GOJBqxjkz746.6 cm (5' 4 )09/23/2020 2:26 PM ESTBody Mass Index38.6209/23/2020 2:26 PM EST Plan of Treatment Health MaintenanceDue DateLast DoneCommentsAnxiety Unabdsntf36/28/1974Depression Ygvqpwari66/28/1974Hepatitis C Fqlshjnkf26/28/1974DTaP,Tdap,Td Vaccine (1 - Tdap)1975Mammogram Painedwiy18/28/1996CT Sqwqryegvmiz53/28/2001Cologuard (FIT-DNA)08/03/20014735Lhdjtgrdzwp78/28/2001Colorectal Cancer Prasdbrfx21/28/2001 Fecal Occult Blood2001Lipid Luwpahlij96/28/2245Vuuirbylidogp76/28/2001 Shingrix Vaccine (1 of 2)2006Pneumococcal Vaccine: 50+ (2 of 2 - PCV) Bone Density Nynceajef76/28/2021Diabetes Srfvbesgg54/27/2021 10/02/2018Advance Directive Gvdmlukzpm19/01/2025Covid-19 Vaccine (1 - 2024- season)2025Influenza Vaccine (#1)RSV Vaccine (1 - 1- dose 75+ series)2031 Insurance
--- OUTSIDE RECORDS SUMMARY | 2025-10-27 08:01 | XMS_ITS | Clinical Summary ---
Author Organization [facility] Address [address] [place] [address] Care Team Providers Care Geodetic Engineer Name Role Phone Ariella Mathis DO Unavailable [phone] Tapan Barboza MD Primary Care Provider [phone] Mae Reese BOTTLE SORTER Unavailable [phone] Allergies Active AllergyReactionsCriticalityNoted ZqwsOvkztkepKdoljbcv16/01/2017 Other Reaction(s): Hallucinating TbolkavqrnFczweru14/31/2024 Medications MedicationSigDispense QuantityRefillsLast FilledStart DateEnd DateStatus montelukast [...] 5Active Active Problems ProblemNoted DateDiagnosed DateCandidiasis of aoenpn1905/19/2025Skin pustule 05/19/2025Exacerbation of zpsjjh5204/09/2025Rheumatoid arthritis, unspecified 02/17/2025 Assessment & Plan (02/17/2025 6:10 AM EDT): Has a diagnosis of this Edema of both lower zqocsyitxwf07/14/2025 Assessment & Plan (02/17/2025 9:03 AM EDT): Elevate legs Compression stockings Fu in 4 weeks, call office if worsening Yuokjyqqcve30/14/2025ody mass index (BMI) 40.0-44.9, adult01/02/2025Mixed ykbsshfxaffz86/27/2025Primary HSV infection of mouth11/12/2024Neoplasm of uncertain behavior of chest wall10/07/2024 Assessment & Plan (10/07/2024 3:09 PM EST): Lesion of uncertain behavior middle chest- tried popping it two weeks ago, area has now become reddened. Area is closed, raised, and reddened with thin scab in place. Referral sent to Dermatology. Screening mammogram for breast yczfyc3602/15/2024neumonia due to infectious vwqjitvv05/11/2024 Assessment & Plan (01/16/2025 6:30 AM EDT): Respiratory panel: culture pseudomonas Was sent home on doxy, will have her stop this, and start levoquin 750mg daily for 7 day Recent hospitalization to [facility]: back to back, 01/02/25 [...] 2 weeks Chronic low back pain without smbiwkqk81/21/2024 Assessment & Plan (01/31/2024 11:31 AM EDT): [...] for acute pain Chronic respiratory failure with mthqewf2312/28/2023 Assessment & Plan (04/09/2025 6:31 AM EDT): Is oxygen dependant, non invasive vent at night 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 However, she was on steroids at that time. Recheck. Ueexkhyrxtysp89/30/2024Other chronic pain12/05/2023rthropathy of right hip 12/05/2023rimary osteoarthritis of right knee12/05/2023Spinal stenosis, lumbar region without neurogenic stghsfgxlynt36/30/2024 Assessment & Plan (02/17/2025 9:01 AM EDT): Continue with lyrica and pain mgmt Spondylosis of lumbar region without myelopathy or hvmmfcypzevjk56/30/2024 Mkrbzghjuuo74/30/2024Severe persistent asthma, pfbdebzxbvchb33/30/2024 Assessment & Plan (02/17/2025 6:09 AM EDT): [...] severe persistent asthma and was discharged from [facility] 3 days ago for acute respiratory [...] hospital right away. Medicare annual wellness visit, izzydcchrq24/01/2024 Assessment & Plan (11/06/2023 6:14 PM EST): Here for Medicare Wellness. Screened for depression, cognitive impairment, fall risk Ordered cologuard for the patient. Mammogram not due. Will order next appt. Osteoporosis koumrzyxv82/29/0253Sarpidikl50/29/2023hronic heart failure with preserved ejection qvojxilr97/29/2023 Assessment & Plan (02/17/2025 6:07 AM EDT): Last ECHO currently in the chart is form 05/29: EF 50%, significantly elevated right sided pressure at 65 [facility] [[email or web address]] Cardiology Assessment & Plan (01/16/2025 10:31 AM EDT): Last ECHO currently in the chart is form 7/: EF 50%, significantly elevated right sided pressure at 65 [facility] [[email or web address]] Cardiology Assessment & Plan (07/11/2024 8:54 AM EDT): Follows Cardiology- [facility] [[email or web address]] Was seen in May 2024 Lasix 20mg [...] & Plan (01/02/2025 3:25 PM EST): Chris 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 Gastroesophageal reflux anatdvd3610/04/2023 Assessment & Plan (02/17/2025 6:09 AM EDT): [...] Elevate HOB if possible Current meds: omeprazole Atmzmccbpvyogk44/29/2023 Assessment & Plan (07/11/2024 8:55 AM EDT): Currently not on any medications: Lifestyle and dietary modifications. Recheck lipid pane today. Iron deficiency arkncf9310/04/2023Morbid (severe) obesity due to excess calories 10/04/2023 [...] contraindicated). Limit sodas, juices, and sugary drinks. Post-najzpnqrxl57/29/2023Restless leg innofufl79/29/2023Urge incontinence 10/04/2023 Assessment & Plan (01/02/2025 7:25 AM EST): Take vesicare Vitamin D rohntgwakw72/29/2023ritical illness rkheugda89/03/2023History of COVID-1907Other secondary pulmonary xbzbtiulupcm74/03/2023 Assessment & Plan (01/16/2025 6:34 AM EDT): Noted on ECHO findings 05/29 Primary osteoarthritis of right hip03/26/2023hronic hwnfktghe55/27/2014 Essential kgpmacnlfwge90/27/2014 Assessment & Plan (05/19/2025 6:23 AM EDT): [...] closely. Resolved Problems ProblemNoted DateDiagnosed DateResolved DateFlu-like apawwqjh53/27/2025 01/16/2025 Assessment & Plan (01/02/2025 3:28 PM EST): Neg, still strong clinical suspicion for flu, d/t severe pulmonary conditions and weakness will send her to [facility] ER for evaluation DD: pneumonia, covid, flu, RSV Severe persistent asthma with luprhsjoxkuy08 Assessment & Plan (04/11/2024 2:33 PM EDT): [...] prednisone, I directed her to go to [facility] for direct admission. I spoke to [...] may have developed CKD. Check BMP. Atrial uxlheeiwhhqn37MalaiseStatus post total right knee cgrrafzfwwt23Hospital discharge follow-up / Assessment & Plan (06/12/2024 [...] with Pulm and she will discuss [facility] [place] [facility] prednisone for her severe Asthma/COPD. Patient instructed [...] 10:34 AM EST): Recent hospital admission at [facility] for acute resp failure due to [...] will also inform the ED provider at [facility] andupdate them on the reason for ED visit. Hvtyjg44 Assessment & Plan (03/27/2024 9:57 AM EDT): [...] Chronic back pain greater than 3 months smxvhtpe70Low back painPositive depression wszhplynx84Right hip painModerate persistent asthma with exacerbation Assessment [...] finished her oral abx prescribed by her p 3 armament/ordnance ima technician. Continues to have bronchospasm, wheezing, chest tightness [...] both ears without spontaneous rupture of tympanic mkkxmwqen08/ Assessment & Plan (10/04/2023 3:15 PM EST): B/l otitis media noted on exam. Will call in oral Augmentin for patient. Disc displacement, Overview (12/05/2023): Added automatically from request for surgery [id number] Added automatically from request for surgery [id number] Arthritis of right kneeLumbar gwdyrgsznin10/17/2018 04/09/2025 Overview (12/05/2023): Added automatically from request for surgery [id number] Added automatically from request for surgery [id number] Encounters DateTypeDepartmentCare XauqPmwottcmpaa24/29/2025External Result Encounter [facility] Unsolicited Kaylene López NP from Last 3 Months Immunizations ImmunizationAdministration DatesNext DueInfluenza, High Dose Seasonal, Preservative Free09/06/2024Influenza, High-dose Seasonal, Quadrivalent, Preservative Free08/26/2023,08/04/2022,08/06/2021Influenza, Split (incl. purified surface antigen)08/09/2017Influenza, Pwlmzvmmfrr32/01/2024,08/26/2023, 08/04/2022,08/06/2021,08/07/2020,08/09/2019,08/08/2018,08/10/2017Influenza, injectable, quadrivalent, preservative free08/07/2020,08/09/2019,08/08/2018, 08/10/2017Novel glchpwxht-O3W0-29, preservative-free09/02/2009Pneumococcal Conjugate PCV 3Pneumococcal Polysaccharide FKTW125812/20/2017RSV, recombinant, protein subunit RSVpreF, adjuvant reconstitu, 120mcg/0.5mL, PF (Arexvy)08/18/2023Zoster, Kpyvolxxrsh36/27/2022,08/27/2022 Family History Medical HistoryRelationNameCommentsCOPDFatherHeart diseaseFatherHyperlipidemia FatherHypertensionFatherStrokeFatherHeart diseaseMotherHyperlipidemiaMother HypertensionMotherMental kacfoylTwbnejSsvzjfdiBajsHufcgvOwmizdqdJpfrphbfi9Xrcgpq DeceasedMotherDeceasedSonx5 Social History Tobacco UseTypesPacks/DayYears UsedDateSmoking Tobacco: NeverPassive Smoke Exposure: NeverSmokeless Tobacco: Never Tobacco Cessation:Counseling Given: Not Answered Alcohol UseStandard Drinks/WeekCommentsNever0 (1 standard drink = 0.6 oz pure alcohol)caffeine: more than 4 cups per agtG0885 Health LiteracyAnswerDate RecordedHow often do you need [...] times a week11/25/2024How often do you attend hindu or holiness services?More than 4 times per year 11/25/2024Do you belong to any clubs or organizations such as hindu groups, unions, fraternal or athletic groups, or school groups?No11/25/2024How often do you attend meetings of the clubs or organizations you belong to?Never11/25/2024 Are you , , , , never , or living with a partner?Bzvuqucs87/20/2025UDIT-CAnswerDate RecordedQ1: How often do you have a [...] care, and heating?Somewhat hard11/25/2024PHQ-2AnswerDate RecordedPatient Health Questionnaire-2 Jcvnf142Finlifepoint hospitals [facility] Occupational [facility] - Occupational Stress QuestionnaireAnswerDate RecordedDo you feel stress - tense, restless, nervous, or anxious, or unable to sleep at night because yourmind is troubled all the time - these days?Only a akbqxj4111/25/2024Exercise Vital Sign AnswerDate RecordedOn average, how many [...] were you homeless or living in a prison (including now)?No11/25/2024CommentsUnknownSex and Gender InformationValueDate RecordedSex Assigned at BirthNot on fileLegal SexFemale 01/18/2023 7:03 PM EDTGender IdentityNot on fileSexual OrientationNot on file Last Filed Vital Signs Vital SignReadingTime TakenCommentsBlood Hmvtrasp142/7607 8:43 AM EDT Euqgu671105/19/2025 8:43 AM GVZWkyfgobeoqk39.9 ??C (98.5 ??F)05/19/2025 8:43 AM EDTRespiratory Rkvq493305/19/2025 8:43 AM EDTOxygen Odmqcnzrve50%05/19/2025 8:43 AM EDTInhaled Oxygen Concentration--Tdibtl747 kg (236 lb 6.4 oz)05/19/2025 8:43 AM CJNLsqler354.6 cm (5' 4 )11/28/2024 1:08 PM ESTBody Mass Index40.58011/28/2024 1:08 PM EST Plan of Treatment DateTypeDepartmentCare Team (Latest Contact Info)Rwkkpmzctql94/10/2026 8:45 AM EDTOffice Visit [facility] [address] [place] [address] Dneise Lazo MD [address] [place] [address] 12/15/2026 9:00 AM ESTOffice Visit [facility] [address] [facility] [place] [address] Yuri Bowers PA [address] [place] [address] Health MaintenanceDue DateLast DoneCommentsCT Wpvegtnwavqr1956FIT-DNA 1955FIT1955FOBT08/03/19561237Nkwqopchcnjzd1956OVID-19 Vaccine ( season), 08/26/2023, 08/04/2022, Additional history existsInfluenza Vaccine (#1)511/11/2023, 09/06/2024, 08/26/2023, Additional history rmrzgbBmopebpca68/28/55229503/03/2025, 02/29/2024, 12/15/2022, Additional history qvvjhdRyahvfsjoct51/02/259454/olorectal Cancer Bwjahwzoj68/02/2033neumococcal Vaccine: 65+ FcdqtGohtvzmmj49/04/2023, 10/19/2018 Goals GoalPatient Goal TypeAssociated ProblemsRecent ProgressPatient-Stated?Author Help patient manage antidepressant medication Care PlanPatient on antidepressant monitoring Katerina Peraza Procedures Procedure NamePriorityDate/TimeAssociated DiagnosisCommentsGASTROINTESTINAL DECABQweoins51/29/2025 10:54 AM EDT BI MAMMOGRAM SCREENING JVSIFGDBF11/28/2025 4:42 PM EDT from Last 3 Months or Most Recently Relevant to Health Maintenance Results * Gastrointestinal panel (08/04/2025 10:54 AM EDT)ComponentValueRef RangeTest MethodAnalysis TimePerformed AtPathologist SignatureYERSINIA ENTEROCOLITICA (GASTROINTESTINAL)023.000 - 33.092 ppm08/05/2025 9:08 AM EDTHealthTrackRx at LabPortYERSINIA ENTEROCOLITICA (GASTROINTESTINAL)Not Fvmbakwq43.000 - 33.092 ppm08/05/2025 9:08 AM EDTHealthTrackRx at LabPortVIBRIO CHOLERAE, PARAHAEMOLYTICUS, VULNIFICUS (GASTROINTESTINAL)023.000 - 31.311 ppm08/05/2025 9:08 AM EDTHealthTrackRx at LabPortVIBRIO CHOLERAE, PARAHAEMOLYTICUS, VULNIFICUS (GASTROINTESTINAL)Not Cytbgycb31.000 - 31.311 ppm08/05/2025 9:08 AM EDTHealthTrackRx at LabPortSALMONELLA ENTERICA (GASTROINTESTINAL)023.000 - 30.960 ppm08/05/2025 9:08 AM EDTHealthTrackRx at LabPortSALMONELLA ENTERICA (GASTROINTESTINAL)Not Dfdltfys95.000 - 30.960 ppm08/05/2025 9:08 AM EDT [facility] at LabPortROTAVIRUS A, B (GASTROINTESTINAL)023.000 - 31.736 ppm 08/05/2025 9:08 AM EDTHealthTrackRx at LabPortROTAVIRUS A, B (GASTROINTESTINAL)Not Nkmrtxdm38.000 - 31.736 ppm08/05/2025 9:08 AM EDT [facility] at LabPortNOROVIRUS (GENOGROUP 1, 2) (GASTROINTESTINAL)023.000 - 30.251 ppm08/05/2025 9:08 AM EDTHealthTrackRx at LabPortNOROVIRUS (GENOGROUP 1, 2) (GASTROINTESTINAL)Not Icgbnsgq50.000 - 30.251 ppm08/05/2025 9:08 AM EDT [facility] at LabPortENTEROINVASIVE E. COLI (EIEC) / SHIGELLA SPP. (GASTROINTESTINAL)019.691 - 24.689 ppm08/05/2025 9:08 AM EDTHealthTrackRx at LabPortENTEROINVASIVE E. COLI (EIEC) / SHIGELLA SPP. (GASTROINTESTINAL)Not Vchrbfcy30.691 - 24.689 ppm08/05/2025 9:08 AM EDTHealthTrackRx at [facility] CLOSTRIDIUM DIFFICILE (TOXIN A/B) (GASTROINTESTINAL)019.691 - 24.689 ppm 08/05/2025 9:08 AM EDTHealthTrackRx at LabPortCLOSTRIDIUM DIFFICILE (TOXIN A/B) (GASTROINTESTINAL)Not Yjjcqtqn84.691 - 24.689 ppm08/05/2025 9:08 AM EDT [facility] at LabPortCAMPYLOBACTER JEJUNI, COLI (GASTROINTESTINAL)023.000 - 31.263 ppm08/05/2025 9:08 AM EDTHealthTrackRx at LabPortCAMPYLOBACTER JEJUNI, COLI (GASTROINTESTINAL)Not Xrfeetsk55.000 - 31.263 ppm08/05/2025 9:08 AM EDT [facility] HospitalSHIGA TOXIN- PRODUCING E. COLI (STEC) (GASTROINTESTINAL)019.691 - 24.689 ppm08/05/2025 9:08 AM EDTHealthTrackRx at LabPortSHIGA TOXIN- PRODUCING E. COLI (STEC) (GASTROINTESTINAL)Not Detected 19.691 - 24.689 ppm08/05/2025 9:08 AM EDTHealthTrackRx at LabPortSHIGA TOXIN- PRODUCING E. COLI O157 (STEC O157) (GASTROINTESTINAL)019.691 - 24.689 ppm 08/05/2025 9:08 AM EDTHealthTrackRx at LabPortSHIGA TOXIN- PRODUCING E. COLI O157 (STEC O157) (GASTROINTESTINAL)Not Arlmuqwy82.691 - 24.689 ppm08/05/2025 9:08 AM EDTHealthTrackRx at LabPortCLOSTRIDIUM NRJKEBQHSXR471.691 - 24.689 ppm 08/05/2025 9:08 AM EDTHealthTrackRx at LabPortCLOSTRIDIUM PERFRINGENSNot Wfgmfhrn09.691 - 24.689 ppm08/05/2025 9:08 AM EDTHealthTrackRx at LabPort CRYPTOSPORIDIUM SPP (PARVUM, HOMINIS, RAN) (GASTROINTESTINAL)023.000 - 30.806 ppm08/05/2025 9:08 AM EDTHealthTrackRx at LabPortCRYPTOSPORIDIUM SPP (PARVUM, HOMINIS, RAN) (GASTROINTESTINAL)Not Vmgjecdb02.000 - 30.806 ppm 08/05/2025 9:08 AM EDTHealthTrackRx at LabPortCYCLOSPORA CAYETANENSIS, CYSTOISOSPORA MELODIE (GASTROINTESTINAL)023.000 - 31.921 ppm08/05/2025 9:08 AM EDTHealthTrackRx at LabPortCYCLOSPORA CAYETANENSIS, CYSTOISOSPORA MELODIE (GASTROINTESTINAL)Not Iaehsnxn82.000 - 31.921 ppm08/05/2025 9:08 AM EDT [facility] at LabPortDIENTAMOEBA FRAGILIS, ENTAMOEBA HISTOLYTICA (GASTROINTESTINAL)023.000 - 32.477 ppm08/05/2025 9:08 AM EDTHealthTrackRx at LabPortDIENTAMOEBA FRAGILIS, ENTAMOEBA HISTOLYTICA (GASTROINTESTINAL)Not Iuxoyrfc77.000 - 32.477 ppm08/05/2025 9:08 AM EDTHealthTrackRx at LabPort ENTAMOEBA UWXJRGYLRYF113.000 - 32.285 ppm08/05/2025 9:08 AM EDTHealthTrackRx at [facility] HospitalENTAMOEBA HISTOLYTICANot Abjnjzea79.000 - 32.285 ppm08/05/2025 9:08 AM EDTHealthTrackRx at LabSt. [facility] HospitalGIARDIA LAMBLIA (INTESTINALIS) (GASTROINTESTINAL)023.000 - 33.080 ppm08/05/2025 9:08 AM EDTHealthTrackRx at LabSt. [facility] HospitalGIARDIA LAMBLIA (INTESTINALIS) (GASTROINTESTINAL)Not Vqaevvpb24.000 - 33.080 ppm08/05/2025 9:08 AM EDTHealthTrackRx at [facility] HospitalMICROSPORIDIUM (ENTEROCYTOZOON BIENEUSI, ENCEPHALITOZOON INTESTINALIS) (GA023.000 - 31.963 ppm08/05/2025 9:08 AM EDTHealthTrackRx at LabSt. [facility] HospitalMICROSPORIDIUM (ENTEROCYTOZOON BIENEUSI, ENCEPHALITOZOON INTESTINALIS) (GANot Hmoxcktc26.000 - 31.963 ppm08/05/2025 9:08 AM EDTHealthTrackRx at LabSt. Vincent Indianapolis HospitalSpecimen (Source) Anatomical Location / LateralityCollection Method / VolumeCollection Time Received AisoEhqnvob67/29/2025 10:54 AM EDT08/05/2025 1:44 AM EDT Narrative Authorizing ProviderResult TypeResult StatusLisa Aichholz NPLAB MICROBIOLOGY - GENERAL ORDERABLESFinal ResultPerforming OrganizationAddressCity/State/ZIP Code Phone Number [facility] [address] [address] * Bilateral screening mammogram (03/03/2025 4:42 PM EDT)Anatomical Region LateralityModalityBreastBilateralMammographySpecimen (Source)Anatomical Location / LateralityCollection Method / VolumeCollection TimeReceived Time 03/03/2025 4:42 PM EDT Narrative 03/03/2025 4:43 PM EDT [facility] ?[address] ? [place] [address] ? Mammography Report ? Signed ? Patient: CHAMPION,DINAA A ?MR#: [id number] ?? : 1955 ?Acct:[id number] ?? Age/Sex: 69 / F ?ADM Date: 04/28/25 ?? Loc: MAMMO ? Attending Dr: Kaylene López BOTTLE SORTER ? Ordering Physician: Kaylene López NP ?Results: ? Date of Service: 03/03/25 ?Follow Up: ? Procedure(s): MM screening mammo BI ?? Accession Number(s): [id number] ? cc: Kaylene López NP ? Patient Name: ? DIANA CHAMPION ? MR#: [id number] ? : 1955 ? Exam Date: 03/03/2025 [...] Cancers ? None ? LOCATION: ? [facility] ? BREAST COMPOSITION: ? The breasts [...] ? Signed By: ?03/03/25 1643 ? DD/ 1642 ? TD/TT: ? Grid Molder: Procedure Note Radiology, Radiologist, MD - 03/03/2025 [place] [address] Mammography Report Signed Patient: DIANA CHAMPION AMR#: [id number] : 1955cct:[id number] Age/Sex: 69 / FADM Date: 03/03/25 Loc: MAMMO Attending Dr: Kaylene López NP Ordering Physician: Kaylene López NPResults: Date of Service: 03/03/25Follow Up: Procedure(s): MM screening mammo BI Accession Number(s): [id number] cc: Kaylene López NP Patient Name: DIANA CHAMPION MR#: [id number] : 1955 Exam Date: 03/03/2025 Ordering Doctor: CLEO López CNP RADIOLOGY REPORT PROCEDURE: MM SCREENING MAMMO BI COMPARISON: MM TOMOSYNTHESIS SCREENING BI, 02/28/2024. MG MAMM BVLRAB3P PRATEEK CAD, 12/15/2022. MG MAMM SCREEN 3D PRATEEK CAD, 11/26/2021. MG MAMM BILSCRN W CAD DIG, 12/16/2013. INDICATIONS: Screening Calculator Name NCI Breast Cancer Risk Assessment Tool 5 Year Breast Cancer Risk 1.20% Lifetime Breast Cancer Risk 4.00% Personal Breast Cancer No Personal Ovarian Cancer No Treatments Excision, radiation, chemotherapy Family Cancers None LOCATION: [facility] BREAST COMPOSITION: The breasts are almost [...] Medina M.D. Signed By:03/03/251642 DD/ 41 TD/TT: Grid Molder: Authorizing ProviderResult TypeResult StatusLisa Aicnorristown state [facility] NPIMG BI PROCEDURES Final Result from Last 3 Months or Most Recently Relevant to Health Maintenance Additional Health Concerns Active ProblemsNoted DateDiagnosed DatePatient on antidepressant monitoring plan 07/17/2024 Insurance Care Teams Team MemberRelationshipSpecialtyStart DateEnd Date Tapan Barboza MD [address] [place] [address] PCP - GeneralFamily Medicine06/10/24 Ariella Mathis DO [address] [place] [address] Referring PhysicianNeurolog01/02/24 Mae Reese NP Nurse Practitionermily Medicine06/10/24
--- OUTSIDE RECORDS SUMMARY | 2025-10-27 08:01 | XMS_ITS | Patient Health Record ---
Author Organization [facility] in [place] Address [address] [place] [address] Care Team Providers Care Trailhead Maintenance Worker Name Role Phone BrianlaneyElba mitchell CNPa Primary Care Provider Unavail able Bo Mcclain Unavailable [phone] Kwabena Zepeda Unavailable [phone] Allergies No Known Allergies Results Component Value Reference Range Notes BNP Reviewed date:01/06/2025 09:44:14 PM Interpretation: Performing Lab: Notes/Report: Comment use blood from this am or skip [facility] , NT Pro B Type Natriuretic Pept 3735.0 <=900.0 pg /mL RESULTS CALLED TO France Winslow RN Performing Lab: see note ML - [facility] LBPROF CHEM 8 (BAS METB) Reviewed date:01/06/2025 09:44:14 PM Interpretation: Performing Lab: Notes/Report: [facility] ,Hdwszx598108-356 mmol/LPotassium4.13.5-5.1 mmol/CSqjsjoco97389-171 mmol/LCarbon Wnkciit04.721.0-32.0 mmol/LAnion Gap10.9Kcoaslx69384-927 mg/dLBlood Urea Ruaxwfaq29.07.0-18.0 mg/dLCreatinine1.180.55-1.02 mg/dLEstimated GFR ( Wouyuhw86>=60 mL/min/1.73m 2Estimated GFR (Non- Ame46>=60 mL/min/1.73m 2 BUN Creatinine Ratio23.9Gksbber9.38.5-10.1 mg/dLPerforming Lab:see noteML - [facility] LBCA echo doppler complete Reviewed date:01/06/2025 09:44:14 PM Interpretation: Performing Lab: Notes/Report: Source Facility: [facility]-[address] [place] [address] [place] [address] Cardiology Report Signed Patient: DIANA CHAMPION MR#: [id number] : 1955 Acct:[id number] Age/Sex: 69 / F ADM Date: 01/02/25 Loc: MS 214-[address]: Kandy Zepeda M.D. Ordering Physician: Kandy Zepeda M.D. Date of Service: 01/06/25 Procedure(s): CA echo doppler complete Accession Number(s): [id number] cc: AIDA BLANC; Kandy Zepeda M.D. Patient Name: DIANA CHAMPION MR#: [id number] : 1955 Exam Date: 01/06/2025 Ordering Doctor: [...] Area (VTI): 2.34 cm2, 2.34 cm2 Deceleration Castro: Pressure Half-Time: Peak Velocity(Antegrade Flow): 1.33 m/s [...] M.D. Signed By: 01/06/251807 DD/ 06 TD/TT: Woven Wood Shade Assembler:CBC AUTO DIFF Reviewed date:01/12/2025 09:41:19 AM Interpretation: Performing Lab: Notes/Report: [facility] ,White Blood Count10.74.0-11.0 10 3/uLRed Blood Count4.064.20-5.40 10 6/uL Wfdxldzsfk88.212.0-16.0 g/dKRrahxnyhlb41.936.0-48.0 %Mean Corpuscular Ebkzad06.3 81.0-99.0 fLMean Corpuscular Nsqempelei72.026.7-34.0 pgMean Corpuscular HGB Conc 32.229.9-35.2 g/dLRed Cell Distribution Width14.011.0-15.0 %Platelet Noovf157 150-450 10 3/uLMean Platelet Volume9.49.5-13.5 fLPerforming Lab:see noteML - [facility] LBManual Differential Reviewed date:01/12/2025 09:41:19 AM Interpretation: Performing Lab: Notes/Report: [facility] ,Segmented Neutrophils % Olwdmz50.043.0-75.0Lymphocytes Percent Manual3.020.5- 60.0 %Monocytes Percent Manual7.01.7-12.0 %Eosinophils Percent Manual0.00.9-7.0 %Basophils Percent Manual0.00.2-2.0 %Segmented Neut Absolute Manual9.631.4-6.5 10 3/uLLymphocytes Absolute Manual0.321.20-3.80 10 3/uLMonocytes Absolute Manual 0.740.30-0.80 10 3/uLEosinophils Absolute Manual0.000.00-0.70 10 3/uLBasophils Abs Manual0.000.00-0.10 10 3/uLPerforming Lab:see noteML - [facility] LBBNP Reviewed date:01/12/2025 09:41:19 AM Interpretation: Performing Lab: Notes/Report: [facility] ,NT Pro B Type Natriuretic Ofya764.0<=900.0 pg/mLPerforming Lab:see note - [facility] LBCBC AUTO DIFF Reviewed date:01/12/2025 09:41:19 AM Interpretation: Performing Lab: Notes/Report: [facility] ,White Blood Count11.14.0-11.0 10 3/uLRed Blood Count4.244.20-5.40 10 6/uL Ixcvbzelqi18.712.0-16.0 g/mJLnoedsiqsa09.136.0-48.0 %Mean Corpuscular Mmcrsr04.2 81.0-99.0 fLMean Corpuscular Qdlcsugzub67.026.7-34.0 pgMean Corpuscular HGB Conc 32.529.9-35.2 g/dLRed Cell Distribution Width13.811.0-15.0 %Platelet Qxdtf479 150-450 10 3/uLMean Platelet Volume9.59.5-13.5 fLPerforming Lab:see note - [facility] LBPROF CHEM 8 (BAS METB) Reviewed date:01/12/2025 09:41:19 AM Interpretation: Performing Lab: Notes/Report: [facility] ,Qlmvhh470563-703 mmol/LPotassium4.63.5-5.1 mmol/YRykxkxpx5489-085 mmol/LCarbon Mkfwxio76.921.0-32.0 mmol/LAnion Gap11.4Hbrhtmn85141-954 mg/dLBlood Urea Pkgnjupl88.07.0-18.0 mg/dLCreatinine1.110.55-1.02 mg/dLEstimated GFR ( Xcjmgaf84>=60 mL/min/1.73m 2Estimated GFR (Non- Ame49>=60 mL/min/1.73m 2 BUN Creatinine Ratio33.2Rxclezh3.58.5-10.1 mg/dLPerforming Lab:see noteML - [facility] LBUA RANDOM W or MICROSCOPIC Reviewed date:01/13/2025 02:13:13 PM Interpretation: Performing Lab: Notes/Report: [facility] ,Color UrineLT. YELLOWYELLOWClarity UrineCLEARCLEARSpecific [place] Urine1.010 1.005-1.025pH Urine6.05.0-9.0Protein UrineNEGATIVENEG/TRACE mg/dLGlucose Urine WR115YVQXZVSH mg/dLBilirubin UrineNEGATIVENEGATIVEKetones UrineNEGATIVENEGATIVE mg/dLBlood UrineNEGATIVENEGATIVENitrite UrineNEGATIVENEGATIVEUrobilinogen Urine 0.20.2-1.0 EU/dLLeukocyte Esterase UrineNEGATIVENEGATIVEWBC Urine0-2NONE SEEN #/HPFRBC UrineNONE SEEN0-2 #/HPFBacteria UrineNONE SEENNONE SEEN #/HPFMucus UrineNONE SEENNONE SEENSquamous Epithelial Cell UrineRARENONE/RARE #/LPFCrystals Seen?None SeenNone Seen #/HPFCast Seen?NONE SEENNONE SEEN #/LPFUrine Culture IndicatedNOPerforming Lab:see noteML - [facility] LBManual Differential Reviewed date:01/12/2025 09:41:19 AM Interpretation: Performing Lab: Notes/Report: [facility] ,Segmented Neutrophils % Ktjzjq15.043.0-75.0Lymphocytes Percent Manual2.020.5- 60.0 %Monocytes Percent Manual4.01.7-12.0 %Eosinophils Percent Manual0.00.9-7.0 %Basophils Percent Manual0.00.2-2.0 %Segmented Neut Absolute Cxtpzg24.431.4-6.5 10 3/uLLymphocytes Absolute Manual0.221.20-3.80 10 3/uLMonocytes Absolute Manual 0.440.30-0.80 10 3/uLEosinophils Absolute Manual0.000.00-0.70 10 3/uLBasophils Abs Manual0.000.00-0.10 10 3/uLAnisocytosis1+Performing Lab:see noteML - [facility] LBBNP Reviewed date:01/13/2025 02:13:13 PM Interpretation: Performing Lab: Notes/Report: [facility] ,NT Pro B Type Natriuretic Zmqw023.0<=900.0 pg/mLPerforming Lab:see noteML - [facility] LBCBC AUTO DIFF Reviewed date:01/13/2025 02:13:13 PM Interpretation: Performing Lab: Notes/Report: [facility] ,White Blood Count8.14.0-11.0 10 3/uLRed Blood Count3.554.20-5.40 10 6/uL Jftghicerf16.812.0-16.0 g/tVNugiefncfn96.136.0-48.0 %Mean Corpuscular Avshoc58.2 81.0-99.0 fLMean Corpuscular Helremptni87.426.7-34.0 pgMean Corpuscular HGB Conc 32.629.9-35.2 g/dLRed Cell Distribution Width13.911.0-15.0 %Platelet Kuvaa831 150-450 10 3/uLMean Platelet Volume9.79.5-13.5 fLNeutrophils Percent Auto83.3 43.0-75.0 %Lymphocytes Percent Auto3.820.5-60.0 %Monocytes Percent Auto7.81.7- 12.0 %Eosinophils Percent Auto0.10.9-7.0 %Basophils Percent Auto0.20.2-2.0 % Immature Granulocytes Pct Auto4.80.0-0.5 %Neutrophils Absolute Auto6.71.4-6.5 10 3/uLLymphocytes Absolute Auto0.31.2-3.8 10 3/uLMonocytes Absolute Auto0.60.3- 0.8 10 3/uLEosinophils Absolute Auto0.00.0-0.7 10 3/uLBasophils Absolute Auto0.0 0.0-0.1 10 3/uLImmature Granulocytes Abs Auto0.390.00-0.03 10 3/uLPerforming Lab:see noteML - [facility] LBPROF CHEM 8 (BAS METB) Reviewed date:01/13/2025 02:13:13 PM Interpretation: Performing Lab: Notes/Report: [facility] ,Mbbtvq764451-972 mmol/LPotassium4.83.5-5.1 mmol/YKbdbdbsa1033-111 mmol/LCarbon Zxpigbl32.921.0-32.0 mmol/LAnion Gap10.4Njpcdhf42336-406 mg/dLBlood Urea Alyfdcpk11.07.0-18.0 mg/dLCreatinine1.210.55-1.02 mg/dLEstimated GFR ( Xhwbqlo85>=60 mL/min/1.73m 2Estimated GFR (Non- Ame44>=60 mL/min/1.73m 2 BUN Creatinine Ratio29.9Ohuhmit0.18.5-10.1 mg/dLPerforming Lab:see noteML - [facility] LBCBC AUTO DIFF Reviewed date:01/14/2025 09:26:10 AM Interpretation: Performing Lab: Notes/Report: [facility] ,White Blood Count9.74.0-11.0 10 3/uLRed Blood Count4.084.20-5.40 10 6/uL Bwvdylchjt03.212.0-16.0 g/jVKsiacyigei76.036.0-48.0 %Mean Corpuscular Fedsun53.7 81.0-99.0 fLMean Corpuscular Tzmihsbeix84.926.7-34.0 pgMean Corpuscular HGB Conc 33.029.9-35.2 g/dLRed Cell Distribution Width13.911.0-15.0 %Platelet Lrgkj669 150-450 10 3/uLMean Platelet Volume9.89.5-13.5 fLNeutrophils Percent Auto80.7 43.0-75.0 %Lymphocytes Percent Auto5.720.5-60.0 %Monocytes Percent Auto7.11.7- 12.0 %Eosinophils Percent Auto0.30.9-7.0 %Basophils Percent Auto0.30.2-2.0 % Immature Granulocytes Pct Auto5.90.0-0.5 %Neutrophils Absolute Auto7.91.4-6.5 10 3/uLLymphocytes Absolute Auto0.61.2-3.8 10 3/uLMonocytes Absolute Auto0.70.3- 0.8 10 3/uLEosinophils Absolute Auto0.00.0-0.7 10 3/uLBasophils Absolute Auto0.0 0.0-0.1 10 3/uLImmature Granulocytes Abs Auto0.570.00-0.03 10 3/uLPerforming Lab:see noteML - [facility] LBVANCOMYCIN TROUGH Reviewed date:01/13/2025 02:13:13 PM Interpretation: Performing Lab: Notes/Report: [facility] ,Vancomycin Kvifcz54.05.0-20.0 ug/mLPerforming Lab:see note - [facility] LBPROF CHEM 8 (BAS METB) Reviewed date:01/12/2025 09:41:19 AM Interpretation: Performing Lab: Notes/Report: [facility] ,Qsyztr292557-064 mmol/LPotassium4.63.5-5.1 mmol/NSbacfayq1909-663 mmol/LCarbon Cvhtsfg66.121.0-32.0 mmol/LAnion Gap10.7Cvdpaod98358-617 mg/dLBlood Urea Szqhgbvm27.07.0-18.0 mg/dLCreatinine1.140.55-1.02 mg/dLEstimated GFR ( Qgbhdsv99>=60 mL/min/1.73m 2Estimated GFR (Non- Ame47>=60 mL/min/1.73m 2 BUN Creatinine Ratio30.0Bmiosxg8.38.5-10.1 mg/dLPerforming Lab:see noteML - [facility] LBBNP Reviewed date:01/12/2025 09:41:19 AM Interpretation: Performing Lab: Notes/Report: [facility] ,NT Pro B Type Natriuretic Abbc451.0<=900.0 pg/mLPerforming Lab:see noteML - [facility] LBManual Differential Reviewed date:01/12/2025 09:41:19 AM Interpretation: Performing Lab: Notes/Report: [facility] ,Segmented Neutrophils % Aienbh07.043.0-75.0Band Neutrophils %1.00-5 % Lymphocytes Percent Manual4.020.5-60.0 %Monocytes Percent Manual4.01.7-12.0 % Eosinophils Percent Manual0.00.9-7.0 %Basophils Percent Manual0.00.2-2.0 % Segmented Neut Absolute Vspvgq35.651.4-6.5 10 3/uLBand Neutrophils Absolute0.2 0.0-0.3 10 3/uLLymphocytes Absolute Manual0.641.20-3.80 10 3/uLMonocytes Absolute Manual0.640.30-0.80 10 3/uLEosinophils Absolute Manual0.000.00-0.70 10 3/uLBasophils Abs Manual0.000.00-0.10 10 3/uLPerforming Lab:see noteML - [facility] LBPROF CHEM 8 (BAS METB) Reviewed date:01/12/2025 09:41:19 AM Interpretation: Performing Lab: Notes/Report: [facility] ,Sbezni344388-708 mmol/LPotassium4.43.5-5.1 mmol/RYkktechi7031-601 mmol/LCarbon Vyzxaxy30.121.0-32.0 mmol/LAnion Gap14.7Zrcytbl70409-735 mg/dLBlood Urea Ytewgskk94.07.0-18.0 mg/dLCreatinine1.340.55-1.02 mg/dLEstimated GFR ( Dtonyyh84>=60 mL/min/1.73m 2Estimated GFR (Non- Ame39>=60 mL/min/1.73m 2 BUN Creatinine Ratio25.8Nfnmqls0.68.5-10.1 mg/dLPerforming Lab:see noteML - [facility] LBCBC AUTO DIFF Reviewed date:01/12/2025 09:41:19 AM Interpretation: Performing Lab: Notes/Report: [facility] ,White Blood Count16.14.0-11.0 10 3/uLRed Blood Count4.584.20-5.40 10 6/uL Hklstxlhde98.812.0-16.0 g/tHUpikixlikz74.236.0-48.0 %Mean Corpuscular Undcyp01.3 81.0-99.0 fLMean Corpuscular Hdiekbwunw00.126.7-34.0 pgMean Corpuscular HGB Conc 31.929.9-35.2 g/dLRed Cell Distribution Width13.911.0-15.0 %Platelet Ukbge591 150-450 10 3/uLMean Platelet Volume9.29.5-13.5 fLPerforming Lab:see noteML - [facility] LBBNP Reviewed date:01/12/2025 09:41:19 AM Interpretation: Performing Lab: Notes/Report: [facility] ,NT Pro B Type Natriuretic Oema383.0<=900.0 pg/mLPerforming Lab:see noteML - [facility] LBBLOOD GASES BTY Reviewed date:01/12/2025 09:41:19 AM Interpretation: Performing Lab: Notes/Report: [facility] ,pH ABG7.3917.350-7.450ABG JFB209.035.0-45.0 mmHg RESULTS CALLED TO CARLOS TRAORE RN ON MEDSURG BY Luzma Villa at 0854 PO2 ADS971.080.0-100.0 mmHgHCO3 ABG30.922.0-26.0 mmol/LBase Excess ABG6.0 -2.0-2.0 mmol/LOxygen Saturation ABG99.3Allen TestPOSITIVEPOSITIVEO2 Mode VAPOTHERMLiters per Houwon00Xpygeatttqoq Inspired Ptezjn865Tatcxbrj SiteL RAD Performing Lab:see noteML - [facility] LBLower Respiratory Culture Reviewed date:01/14/2025 [...] Ceftolozane/Tazobactam S F Lower Respiratory CulturePerformed at: [facility] Lower Respiratory Culture WILL FOLLOW O:GNR Isolated O:PSMS Isolated Organism: 8.2 Antibiotic Interpretation CUCO Status Cefepime Cefepime S F Ceftazidime Ceftazidime S F Ciprofloxacin Ciprofloxacin S F Levofloxacin Levofloxacin S F Meropenem Meropenem S F Tobramycin Tobramycin S F Piperacillin/Tazobactam Piperacillin/Tazobactam S F Ceftazidime/Avibactam Ceftazidime/Avibactam S F Ceftolozane/Tazobactam Ceftolozane/Tazobactam S F Lower Respiratory [address] [place] [address] [phone] Lower Respiratory Culture WILL FOLLOW O:GNR Isolated O:PSMS Isolated Organism: 8.2 Antibiotic Interpretation CUCO Status Cefepime Cefepime S F Ceftazidime Ceftazidime S F Ciprofloxacin Ciprofloxacin S F Levofloxacin Levofloxacin S F Meropenem Meropenem S F Tobramycin Tobramycin S F Piperacillin/Tazobactam Piperacillin/Tazobactam S F Ceftazidime/Avibactam Ceftazidime/Avibactam S F Ceftolozane/Tazobactam Ceftolozane/Tazobactam S F Lower Respiratory CultureLab Director: Raphael Marrero PhD, Phone: [phone] Lower Respiratory Culture WILL FOLLOW O:GNR Isolated [...] LC - [facility] LB SEE REPORT - Anesthesiology Fellow Id information not found for OBX-specific remote operations producer legend Gram Stain Evaluation Reviewed date:01/14/2025 04:11:49 PM Interpretation: Performing Lab: Notes/Report: [facility] ,Gram Stain EvaluationSee Below For Report Gram Stain Evaluation This specimen is of good quality and is acceptable for routine Gram Stain Evaluationbacterial culture. Gram Stain Evaluation This specimen is of good quality and is acceptable for routine Performing Lab:see note - [facility] LBResult 4 Reviewed date:01/14/2025 04:11:49 PM Interpretation: Performing Lab: Notes/Report: [facility] ,Result 4See Below For Report Result 4 WINE MERCHANT Performing Lab:see note - [facility] LBResult 3 Reviewed date:01/14/2025 04:11:49 PM Interpretation: Performing Lab: Notes/Report: [facility] ,Result 3See Below For Report Result 3 WINE MERCHANT Performing Lab:see note - [facility] LBResult 2 Reviewed date:01/14/2025 04:11:49 PM Interpretation: Performing Lab: Notes/Report: [facility] ,Result 2See Below For Report Result 2 WINE MERCHANT Performing Lab:see note - [facility] LBResult 1 Reviewed date:01/14/2025 04:11:49 [...] CellsNone seen White Blood Cells Performing Lab:see note - [facility] LBManual Differential Reviewed date:01/09/2025 09:12:32 PM Interpretation: Performing Lab: Notes/Report: [facility] ,Segmented Neutrophils % Wbeawl35.043.0-75.0Band Neutrophils %1.00-5 % Lymphocytes Percent Manual9.020.5-60.0 %Monocytes Percent Manual1.01.7-12.0 % Eosinophils Percent Manual0.00.9-7.0 %Basophils Percent Manual0.00.2-2.0 % Metamyelocytes %1.0Segmented Neut Absolute Uvcxxh80.351.4-6.5 10 3/uLBand Neutrophils Absolute0.10.0-0.3 10 3/uLLymphocytes Absolute Manual1.161.20-3.80 10 3/uLMonocytes Absolute Manual0.120.30-0.80 10 3/uLEosinophils Absolute Manual 0.000.00-0.70 10 3/uLBasophils Abs Manual0.000.00-0.10 10 3/uLMetamyelocytes Absolute Manual0.12Performing Lab:see noteML - [facility] LBPROF CHEM 8 (BAS METB) Reviewed date:01/09/2025 09:12:32 PM Interpretation: Performing Lab: Notes/Report: [facility] ,Onlevr396241-665 mmol/LPotassium5.03.5-5.1 mmol/KGufugzwp56782-577 mmol/LCarbon Itlcrne47.121.0-32.0 mmol/LAnion Gap8.8Gnqfycl40711-174 mg/dLBlood Urea Lkgytuoq42.07.0-18.0 mg/dLCreatinine1.320.55-1.02 mg/dLEstimated GFR ( Yyukcek57>=60 mL/min/1.73m 2Estimated GFR (Non- Ame40>=60 mL/min/1.73m 2 BUN Creatinine Ratio26.7Elnatmn6.08.5-10.1 mg/dLPerforming Lab:see noteML - [facility] LBCBC AUTO DIFF Reviewed date:01/09/2025 09:12:32 PM Interpretation: Performing Lab: Notes/Report: [facility] ,White Blood Count12.94.0-11.0 10 3/uLRed Blood Count4.304.20-5.40 10 6/uL Nzrvhfjqxn40.212.0-16.0 g/yKDlsknammmu16.336.0-48.0 %Mean Corpuscular Xfkzbj00.7 81.0-99.0 fLMean Corpuscular Tpgtttoerq70.726.7-34.0 pgMean Corpuscular HGB Conc 32.829.9-35.2 g/dLRed Cell Distribution Width14.311.0-15.0 %Platelet Wbrts175 150-450 10 3/uLMean Platelet Volume8.89.5-13.5 fLPerforming Lab:see note - [facility] LBBNP Reviewed date:01/09/2025 09:12:32 PM Interpretation: Performing Lab: Notes/Report: [facility] ,NT Pro B Type Natriuretic Ixdk056.0<=900.0 pg/mLPerforming Lab:see note - [facility] Ag* Reviewed date:01/08/2025 09:36:16 PM Interpretation: Performing Lab: Notes/Report: [facility] ,SARS-CoV-2 AgPOSITIVENEGATIVE CALLED TO JESSICA BENITEZ, RN [...] is revoked sooner. Performing Lab:see noteML - [facility] LBRSV Reviewed date:01/08/2025 09:36:16 PM Interpretation: Performing Lab: Notes/Report: [facility] ,Respiratory Syncytial VirusNot DetectedNOT DETECTEPerforming Lab:see note - [facility] LBMAGNESIUM Reviewed date:01/08/2025 09:36:16 PM Interpretation: Performing Lab: Notes/Report: [facility] ,Magnesium2.11.8-2.4 mg/dLPerforming Lab:see noteML - [facility] LB LACTATE or LACTIC ACID Reviewed date:01/08/2025 09:36:16 PM Interpretation: Performing Lab: Notes/Report: [facility] ,Lactate/Lactic Acid1.50.4-2.0 mmol/LPerforming Lab:see noteML - [facility] LBINFLUENZA A AND B AG Reviewed date:01/08/2025 09:36:16 PM Interpretation: Performing Lab: Notes/Report: [facility] ,Influenza Virus A AntigenNegative Negative for Flu [...] of the test. Performing Lab:see noteML - [facility] LBPROF CHEM 8 (BAS METB) Reviewed date:01/07/2025 07:51:37 PM Interpretation: Performing Lab: Notes/Report: [facility] ,Tdjcgn901845-516 mmol/LPotassium4.33.5-5.1 mmol/GXvoqbceu68161-887 mmol/LCarbon Nbyxopx51.421.0-32.0 mmol/LAnion Gap7.9Sbpzesn22810-542 mg/dLBlood Urea Wqwpzesc65.07.0-18.0 mg/dLCreatinine1.250.55-1.02 mg/dLEstimated GFR ( Wyrmwtc55>=60 mL/min/1.73m 2Estimated GFR (Non- Ame43>=60 mL/min/1.73m 2 BUN Creatinine Ratio26.0Ifgonrx0.38.5-10.1 mg/dLPerforming Lab:see noteML - [facility] LBXR chest 2V Reviewed date:01/05/2025 12:57:10 PM Interpretation: Performing Lab: Notes/Report: Source Facility: [facility]-[address] [place] [address] [place] [address] XRay Report Signed Patient: DIANA CHAMPION MR#: [id number] : 1955 Acct:[id number] Age/Sex: 69 / F ADM Date: 01/02/25 Loc: [place] 214-[address]: Kandy Zepeda M.D. Ordering Physician: Kandy Zepdea M.D. Date of Service: 01/05/25 Procedure(s): XR chest 2V Accession Number(s): [id number] cc: AIDA BLANC; Kandy Zepeda M.D. [place] [id number] Patient Name: DIANA CHAMPION MRN: [id number] date: 1955 Sex: F Assigned Patient Location: [place] Current Patient Location: [place] Accession/Order Number: [id number] Exam Date: 01/05/2025 09:39 Report Date: 01/05/2025 [...] Medina Jr., D.O.01/05/2025 9:42 AM Dictation Location: [place] [address] Electronically authenticated by: [id number] Y Date: 01/05/2025 09:42 Dictated By: Marcos Medina M.D. Signed By: 01/05/2545 DD/ 1 TD/TT: Woven Wood Shade Assembler:Venous Blood Gas Reviewed date:01/05/2025 12:57:10 PM Interpretation: Performing Lab: Notes/Report: [facility] , VBG7.4347.330-7.057ZZS4 VBG45.840.0-52.0 mmHgPerforming Lab:see note - [facility] LBPROF CHEM 8 (BAS METB) Reviewed date:01/05/2025 12:57:10 PM Interpretation: Performing Lab: Notes/Report: [facility] ,Hbwfip657884-132 mmol/LPotassium4.33.5-5.1 mmol/LStfphiwa87114-820 mmol/LCarbon Aifkpyr46.221.0-32.0 mmol/LAnion Gap12.5Tuodudp28197-729 mg/dLBlood Urea Ekzelbic87.07.0-18.0 mg/dLCreatinine1.230.55-1.02 mg/dLEstimated GFR ( Gwkkmmo56>=60 mL/min/1.73m 2Estimated GFR (Non- Ame43>=60 mL/min/1.73m 2 BUN Creatinine Ratio19.2Tmqyoki6.58.5-10.1 mg/dLPerforming Lab:see noteML - [facility] LBCT chest wo con Reviewed date:11/13/2024 02:55:20 PM Interpretation: Performing Lab: Notes/Report: Source Facility: [place] [address] CT Scan Report Signed Patient: DIANA CHAMPION MR#: [id number] : 1955 Acct:[id number] Age/Sex: 69 / F ADM Date: 11/12/24 Loc: [place] 231-[address]: Shaikh Lev Velasquez Ordering Physician: Bo Mcclain D.O. Date of Service: 11/13/24 Procedure(s): CT chest wo con Accession Number(s): [id number] cc: AIDA BLANC [place] [address] Patient Name: DIANA CHAMPION MRN: [id number] date: 1955 Sex: F Assigned Patient Location: [place] Current Patient Location: [place] Accession/Order Number: [id number] Exam Date: 11/13/2024 13:54 Report Date: 11/13/2024 [...] Signed By: 11/13/24 1422 DD/ 1419 TD/TT: Woven [employer] Shade Assembler:PROF JOSSELINE Ramirez ([facility]) Reviewed date:01/14/2025 09:26:10 AM Interpretation: Performing Lab: Notes/Report: [facility] ,Smmefy051644-546 mmol/LPotassium4.43.5-5.1 mmol/HBvhwmkvy3695-987 mmol/LCarbon Hzztuoa26.021.0-32.0 mmol/LAnion Gap8.3Mdasvfi74720-679 mg/dLBlood Urea Nitrogen 40.07.0-18.0 mg/dLCreatinine1.140.55-1.02 mg/dLEstimated GFR ( Ojjqzzd65 >=60 mL/min/1.73m 2Estimated GFR (Non- Ame47>=60 mL/min/1.73m 2BUN Creatinine Ratio35.1Wdtwjdx8.18.5-10.1 mg/dLPerforming Lab:see noteML - [facility] LBBNP Reviewed date:01/14/2025 09:26:10 AM Interpretation: Performing Lab: Notes/Report: [facility] ,NT Pro B Type Natriuretic Rfbz222.0<=900.0 pg/mLPerforming Lab:see noteML - [facility] LB Reason For Referral No Information Medications [...] Comme nts Arexvy Unknown 08/18/2023 Administered Comirnaty Glomera Syringe Pre-Filled 30 mcg/0.3 pFDxwmdnx18/15/2024dministered Flu, Fluad (65683) 65 yrs + High Dose Seasonal (9572-4864)Juvxczk7509/06/2024 AdministeredFlu, Fluzone High-Dose (4245-2253) (67894) 65 yrs+Lptgwea6408/26/2023 AdministeredPneumococcal (Pneumovax 23)Vvymnhh2310/19/2018AdministeredPneumococcal (Prevnar 20)Xztxfru0808/09/2023dministeredSpikevax Moderna Syringe Pre-Filled 50 mcg/0.5 tPGqdasyz58/21/2023AdministeredZOSTER (SHINGLES) VACCINE (HZV)Unknown 11/01/2022dministered Social History Tobacco Use: Social History Observation Description Date Details (start date - stop date) Never Smoker NA - NA Tobacco Control (Standard) Question Answer Notes Tobacco use: Nonsmoker Problems Problem Type SNOMED Code ICD Code Onset Dates Problem Status W/U Status Risk Notes Problem Morbid obesity (disorder) (55907 6002) Morbid (severe) obesity due to excess calories (E66.01) ActiveconfirmedProblemCritical illness myopathy (485227670)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)ActiveconfirmedProblemChronic respiratory failure (68544520) Chronic respiratory failure with hypoxia (J96.11)ActiveconfirmedProblemPulmonary collapse (11084764)Other pulmonary collapse (J98.19)ActiveconfirmedDynamic airway collapseProblemLong-term current use of inhaled steroid (598844189)half-way (current) use of inhaled steroids (Z79.51)ActiveconfirmedProblemChronic obstructive pulmonary disease (26072759)Chronic obstructive pulmonary disease (J44.9)ActiveconfirmedPrior treatment: Trelegy 100 > Breo 100 > Spiriva > albuterol > AtroventProblemRestless legs syndrome (89999347)Restless leg syndrome (G25.81)ActiveconfirmedProblemDepression (802516428)Depression (F32.9) ActiveconfirmedProblemAllergic rhinitis (51672045)Allergic rhinitis (J30.9) ActiveconfirmedProblemRestrictive lung disease (01586311)Restrictive lung disease (J98.4)ActiveconfirmedProblemMultiple pulmonary nodules (584068338) Multiple pulmonary nodules (R91.8)ActiveconfirmedProblemLung field abnormal (379875391)Ground glass opacity present on imaging of lung (R91.8)Active confirmedProblemGastroesophageal reflux disease (968627913)Gastroesophageal reflux disease (K21.9)ActiveconfirmedProblemExacerbation of asthma (137995854) Asthma with acute exacerbation (J45.901)ActiveconfirmedProblemDaytime sleep (041337774)Daytime hypersomnolence (G47.19)ActiveconfirmedProblemPneumonia (012933509)Healthcare-associated pneumonia (J18.9)ActiveconfirmedProblem Secondary pulmonary hypertension (33823732)Other secondary pulmonary hypertension (I27.29)ActiveconfirmedProblemAllergic rhinitis (69967186)Allergic rhinitis, unspecified seasonality, unspecified trigger (J30.9)Activeconfirmed ProblemLumbar spinal stenosis (43589941)Lumbar stenosis (M48.061)Activeconfirmed ProblemHistory of COVID-19 (920068202500588401)History of COVID-19 (Z86.16) Activeconfirmed04/04/2023: Severe associated hypoxic respiratory failureProblem Body mass index 40+ - severely obese (856021629)Body mass index [BMI] 40.0-44.9, adult (Z68.41)Activeconfirmed Vital Signs Heart Rate 73 /min 05/01/2025 Hnopdqocmzx74.0 degrees Wxiybjzubf80/26/2025Respiratory Rate20 /min05/01/2025 Pusvwypd02 %05/01/2025lood pressure zzanetjkq34 mm Hg05/01/20258591Physus05 in 05/01/2025lood pressure deyqytll218 mm Hg05/01/20251060Ncxftw730.0 lbs05/01/2025MI 44.59 kg/m205/01/2025 Encounters Encounter Location Date Provider Diagnosis Pulmonary Medicine [facility] [address] [place] [place] [address] 07/21/2025 [facility] Pulmonary Medicine [id number] [place] [address]/01/2025 [facility] [address] [place] [place] [address] 01/[facility] [id number] [place] [place] [address]/09/2025[facility] [address] [place] [place] [address]/09/2025[facility] [id number] [place] [place] [address]/[facility] CenterChronic obstructive pulmonary disease J44.9Pulmonary Medicine [address] [place] [address]/09/2025[facility] [address] [place] [place] [address]/[facility] [id number] [place] [place] [address]/05/2025[facility] CenterChronic obstructive pulmonary disease J44.9Pulmonary Medicine [address] [place] [address]/[address] [address]/02/2025[facility] with (acute) exacerbation J44.1 and Candidal stomatitis B37.[address] [address]/[facility] Chronic obstructive pulmonary disease J44.9 ; Other pulmonary collapse J98.19 ; 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 ; Other secondary pulmonary hypertension I27.29 ; Chronic respiratory failure with hypoxia J96.11 ; half-way (current) use of inhaled steroids Z79.51 ; History of COVID-19 Z86.16 and Morbid (severe) obesity due to excess calories E66.01ulmonary [address] [address]/[facility] J44.9 ; 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 ; Other pulmonary collapse J98.19 ; Chronic respiratory failure with hypoxia J96.11 ; Other secondary pulmonary hypertension I27.29 ; Allergic rhinitis J30.9 ; Oral candidiasis B37.0 ; 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 ; Morbid (severe) obesity due to excess calories E66.01 and History of COVID-[address] [address]/[facility] J44.9 ; Other pulmonary collapse J98.19 ; 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 [...] she keep up with her pulmonary toilet. [facility] Pulmonology practice will be permanently closing. Refilling all medications today. As it will be several months until I would be able to see her again elsewhere, prescribing prednisone and antibiotics in case she has a flare and is unable to reach anyone. 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 [...] today. 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 Continue vest, PEP, and saline nebs. 01/29/2025Other secondary pulmonary hypertension (ICD-10 - I27.29) [...] lightheadedness. 04/02/2025ritical illness myopathy (ICD-10 - G72.81) Dgmu-zr-knod encounter performed with the patient to document [...] toilet. Continue vest, PEP, and saline nebs. 05/01/2025hronic respiratory failure with hypoxia (ICD-10 - J96.11) Wptm-ui-mgqe encounter performed with the patient to document [...] conditions, which are very difficult to manage. 01/29/2025hronic respiratory failure with hypoxia (ICD-10 - J96.11) Ovnj-ny-mcfk encounter performed with the patient to document [...] requiring O2. -Recommendations: Continue O2 as directed 01/29/2025Long term (current) use of inhaled steroids (ICD-10 - Z79.51) Patient was counseled to rinse & gargle with water after inhaled corticosteroid use. 04/02/2025hronic respiratory failure with hypoxia (ICD-10 - J96.11) Gakz-pv-tgxv encounter performed with the patient to document [...] of clotrimazole sent in just in case 04/02/2025Long term (current) use of inhaled steroids (ICD-10 - Z79.51) Patient was counseled to rinse & gargle with water after inhaled corticosteroid use. 01/29/2025History of COVID-19 (ICD-10 - Z86.16)04/04/2023: Severe associated hypoxic respiratory txwjdbh6201/29/2025Morbid (severe) obesity due to excess calories (ICD-10 - E66.01) Patient's weight is inducing a restrictive pulmonary physiology. Weight loss indicated: Decrease calories, increase activity. 04/02/2025History of COVID-19 (ICD-10 - Z86.16)04/04/2023: Severe associated hypoxic respiratory muxkrqn7605/01/2025Long term (current) use of inhaled steroids (ICD-10 [...] (ICD-10 - Z86.16)04/04/2023: Severe associated hypoxic respiratory dyzllqe3801/29/2025Other As above, suggested patient scrub her face [...] End Date [address] [address] [place] [id number] Champion, SherrySelf - patient is the cjeetdl73/01/[id number] 2025[employer] MED[address]ARE[address] [place] [id number], SherrySelf - patient is the [id number] 2024MEDICAID [facility] [address] [facility] [place] [id number], SherrySelf - patient is the insured Medical [...] Exacerbation-TBH 06/07/2024 COPD Exacerbation-TBH 04/11/2024 Pneumonia-TBH 02/03/2024 Wtktg-93-PVG 04/10/2023 Hospital Acquired Pneumonia-TBH 08/08/20 Sepsis/Pneumonia-TBH 11/25/2023
[2025-10-27 09:08] VITALS: BP 147/79; PULSE 68; TEMP 36.1; O2SAT 92
[2025-10-27 09:46] VITALS: BP 159/75; PULSE 75; O2SAT 94; O2SAT 96
[2025-10-27] MEDS: LIDOCAINE HCL 2% 400 MG/20 ML MDV INJ (09:47)
[2025-10-27] MEDS: IOHEXOL 240 MG/ML - 10 ML VIAL 12 MG INJ (09:47)
[2025-10-27] MEDS: BUPIVACAINE HCL 0.25% PF 25 MG/10 ML VIAL 2 ML INJ (09:47)
[2025-10-27] MEDS: METHYLPREDNISOLONE ACETATE 40 MG/ML VIAL INJ (09:47)
[2025-10-27 09:48] VITALS: BP 156/69
--- NOTE | 2025-10-27 09:50 | W.PM.PROCNOT ---
Date of procedure: 10/27/25 Pre-op diagnosis: Pain due to right sacroiliitis Post-op diagnosis: same as pre-op Procedure: Procedure: Right sacroiliac joint injection Medications: Bupivacaine 0.25% 3cc, depomedrol 40mg After informed consent was obtained, the patient was brought to the medical procedure unit and placed in the prone position, when a timeout was completed verifying correct patient, procedure, site, positioning, implant, and/or special equipment.? The skin overlying the area was prepped and draped in standard sterile fashion using alcohol.? A 25-gauge needle was inserted towards the right sacroiliac joint under direct fluoroscopic imaging.? Needle tip was advanced until the joint was encountered.? We instilled a total of 2 mL of solution.? Postoperatively needles were removed.? The patient tolerated the procedure well without complication.? The patient reported reduction in pain symptoms postoperatively. Anesthesia: Local Surgeon: Jayshree Vargas Pathology: none sent Condition: stable Disposition: no change
== END 2025-10-27 09:54 | disposition home or self-care (01) ==
PROVIDERS: PCP Nurse Practitioner; Visit Provider Anesthesiology
DX: M46.1 Sacroiliitis, not elsewhere classified (principal); G89.29 Other chronic pain
CPT/HCPCS: 64451; J0665; J1010; Q9966